=== PATIENT | female | born 1990 | race Caucasian/White ===

== ENCOUNTER 2023-05-26 10:19 | Emergency (ER) | payer OTHER, SELFPAY ==
[2023-05-26 10:27] VITALS: BP 113/84; PULSE 67; RESP 14; TEMP 36.6; O2SAT 98; BMI 29.3
--- NOTE | 2023-05-26 10:34 | PC.NURSE ---
pt scratched R lower leg mosquito bite a few days ago, and worried the scratch is infected. Wound is not open or draining or appears to be infected. pt has been putting neosporin on it.
--- NOTE | 2023-05-26 10:46 | ED.SKABFB1 ---
HPI - Skin/Abscess/Foreign Bdy General Chief complaint: Skin/Abscess/Foreign Body Stated complaint: LOWER EXTREMITY PAIN RIGHT LEG Time Seen by Provider: 05/26/23 10:28 Source: patient Mode of arrival: walk-in Limitations: no limitations History of Present Illness HPI narrative: 32-year-old female presented to have a wound on her right lower leg checked. She states she had a mosquito bite and she scratched it and caused a large abrasion. It's been healing and she's been putting triple and back ointment on it but she wanted to make sure it is not infected. No drainage or fever. She's had this for a few days. Related Data Home Medications Medication Instructions Recorded Confirmed naltrexone microspheres 380 mg mg IM 05/26/23 intramuscular suspension,extended release (Vivitrol) Allergies Allergy/AdvReac Type Severity Reaction Status Date / Time No Known Drug Allergies Allergy Verified 05/26/23 10:26 Review of Systems ROS Narrative A ten point review of systems is negative except as noted above. PFSH PFSH Social History Smoking status: Current every day smoker Exam Narrative Exam Narrative: Nurses note and vital signs reviewed and patient is not hypoxic. General: The patient appears well and in no apparent distress. Patient is resting comfortably on cart. Skin: Warm, dry, no pallor noted. There is no rash noted. there is a vertically oriented abrasion on her right lower leg anteriorly. There is scab but no drainage or abscess or surrounding erythema. There is no open area. Head: Normocephalic, atraumatic Eye: Normal conjunctiva, no drainage Ears, Nose, Mouth, and Throat: oral mucosa is moist. Nares patent. Cardiovascular: Regular Rate and Rhythm Respiratory: Patient is in no distress, no accessory muscle use Back: non-tender GI: nontender Musculoskeletal: The patient has no evidence of calf tenderness, no pitting edema, symmetrical pulses noted bilaterally Neurological: A&O, normal speech Psychiatric: Cooperative Constitutional Vital Signs, click to edit/add: Last Vital Signs Temp 97.9 F 05/26/23 10:27 Pulse 67 05/26/23 10:27 Resp 14 05/26/23 10:27 BP 113/84 05/26/23 10:27 Pulse Ox 98 05/26/23 10:27 O2 Del Method Room Air 05/26/23 10:27 Course Vital Signs Vital signs: Vital Signs Temperature 97.9 F 05/26/23 10:27 Pulse Rate 67 05/26/23 10:27 Respiratory Rate 14 05/26/23 10:27 Blood Pressure 113/84 05/26/23 10:27 Pulse Oximetry 98 05/26/23 10:27 Oxygen Delivery Method Room Air 05/26/23 10:27 Temperature 97.9 F 05/26/23 10:27 Pulse Rate 67 05/26/23 10:27 Respiratory Rate 14 05/26/23 10:27 Blood Pressure 113/84 05/26/23 10:27 Pulse Oximetry 98 05/26/23 10:27 Oxygen Delivery Method Room Air 05/26/23 10:27 MDM - Skin/Abscess/Foreign Bdy MDM Narrative Medical decision making narrative: the patient was reassured that there is no infection. Treatment diagnosis and follow-up were discussed with the patient. Discharge Plan Discharge Chief Complaint: Skin/Abscess/Foreign Body Clinical Impression: Abrasion of skin Patient Disposition: Home, Self-Care Time of Disposition Decision: 10:38 Condition: Good Mode of Transportation: Private Vehicle Prescriptions / Home Meds: No Action Vivitrol 380 mg suspension,extended rel recon IM Stand Alone Forms: Portal Instructions
== END 2023-05-26 10:50 | disposition home or self-care (01) ==
PROVIDERS: Emergency Provider Emergency Medicine
DX: S80.811A Abrasion, right lower leg, initial encounter (principal); F17.210 Nicotine dependence, cigarettes, uncomplicated; X58.XXXA Exposure to other specified factors, initial encounter
CPT/HCPCS: 99281

== ENCOUNTER 2023-06-10 14:50 | Emergency (ER) | payer OTHER, SELFPAY ==
[2023-06-10 14:55] VITALS: BP 137/88; PULSE 98; RESP 20; TEMP 36.8; O2SAT 99; BMI 29.8
--- NOTE | 2023-06-10 15:04 | ECG_ITS ---
The [facility] [place] Test Date: 2023-06-10 Pat Name: LEILA HASSAN Department: Room: - Gender: Female [employer]: : 1990 Requested By: 1030 Order Number: [id number] Reading MD: PRABHJOT RAHMAN Measurements Intervals [place] Rate: 74 P: 30 OR: 150 QRS: 34 QRSD: 76 T: 34 QT: 362 QTc: 389 Interpretive Statements 1100 Sinus rhythm 8102 Low QRS voltage in chest leads 9120 atypical ECG No previous ECG available for comparison Electronically Signed On 06-11-2023 7:18:35 EDT by PRABHJOT RAHMAN
--- NOTE | 2023-06-10 15:04 | CT_ITS ---
The [address] [address] Patient Name: LEILA HASSAN MRN: [id number] date: 1990 Sex: F Assigned Patient Location: ER Current Patient Location: ER Accession/Order Number: [id number] Exam Date: 06/10/2023 15:43 Report Date: 06/10/2023 16:02 At the request of: GABRIELA CAMARGO Procedure: CT head/brain wo con EXAM: CT head/brain wo con HISTORY: weak dizziness. COMPARISON: Prior CT scan of the brain August 11, 2022. TECHNIQUE: Noncontrast images of the brain. FINDINGS: Mild hyperostosis frontalis interna present. The brain is normal in attenuation without hemorrhage, mass effect or midline shift. No acute findings are seen. CT/CT head/brain wo con IMPRESSION: No acute findings in the brain at this time. Electronically authenticated by: NINOSKA KEENAN Date: 06/10/2023 16:02
--- NOTE | 2023-06-10 15:04 | ED.GENADUL1 ---
HPI - General Adult General Chief complaint: Headache Stated complaint: HIGH BP/HEADACHES Time Seen by Provider: 06/10/23 14:57 Source: patient Mode of arrival: walk-in Limitations: no limitations History of Present Illness HPI narrative: 32-year-old female presents for headache and high blood pressure. She brings in a written list of symptoms including dizziness and some short-term memory problems. She's had no trauma. She was seen at another hospital yesterday and had a workup that was negative. She called her neurologist and the patient states she was told that this is not her intracranial hypertension and that she should go to the emergency department and get checked. The patient wants to have a CAT scan of her head. No fever or localized weakness. Symptoms seem to have been present for the last week. Related Data Home Medications Medication Instructions Recorded Confirmed naltrexone microspheres 380 mg 380 mg IM .COMPLEX 05/26/23 06/10/23 intramuscular suspension,extended release (Vivitrol) cholecalciferol (vitamin D3) 125 5,000 unit PO .COMPLEX 06/10/23 06/10/23 mcg (5,000 unit) capsule duloxetine 60 mg capsule,delayed 60 mg PO DAILY 06/10/23 06/10/23 release hydroxyzine pamoate 25 mg capsule 25 mg PO PRN 06/10/23 06/10/23 ziprasidone HCl 20 mg capsule 20 mg PO DAILY 06/10/23 06/10/23 Allergies Allergy/AdvReac Type Severity Reaction Status Date / Time aripiprazole [From Abilify] Allergy Unknown Verified 06/10/23 15:05 Review of Systems ROS Narrative A ten point review of systems is negative except as noted above. PFSH PFSH Social History Smoking status: Current every day smoker Exam Narrative Exam Narrative: Nurses note and vital signs reviewed and patient is not hypoxic. General: The patient appears well and in no apparent distress. Patient is resting comfortably on cart. Skin: Warm, dry, no pallor noted. There is no rash noted. Head: Normocephalic, atraumatic Eye: Normal conjunctiva, no drainage, EOMI. PERRL Ears, Nose, Mouth, and Throat: oral mucosa is moist. Nares patent. Mouth without vesicles. Cardiovascular: Regular Rate and Rhythm Respiratory: Patient is in no distress, no accessory muscle use, lungs are clear to auscultation, no wheezing, rales or rhonchi Back: non-tender GI: soft and nontender Musculoskeletal: The patient has no evidence of calf tenderness, no pitting edema, symmetrical pulses noted bilaterally Neurological: A&O x4, normal speech; upper and lower extremity strength five out of five and symmetric Psychiatric: Cooperative Constitutional Vital Signs, click to edit/add: Last Vital Signs Temp 98.3 F 06/10/23 14:55 Pulse 98 H 06/10/23 14:55 Resp 06/10/23 14:55 BP 137/88 06/10/23 14:55 Pulse Ox 99 06/10/23 14:55 O2 Del Method Room Air 06/10/23 14:55 Course Vital Signs Vital signs: Vital Signs Temperature 98.3 F 06/10/23 14:55 Pulse Rate 98 H 06/10/23 14:55 Respiratory Rate 06/10/23 14:55 Blood Pressure 137/88 06/10/23 14:55 Pulse Oximetry 99 06/10/23 14:55 Oxygen Delivery Method Room Air 06/10/23 14:55 Temperature 98.3 F 06/10/23 14:55 Pulse Rate 98 H 06/10/23 14:55 Respiratory Rate 06/10/23 14:55 Blood Pressure 137/88 06/10/23 14:55 Pulse Oximetry 99 06/10/23 14:55 Oxygen Delivery Method Room Air 06/10/23 14:55 Medical Decision Making MDM Narrative Medical decision making narrative: blood work and CT of the brain are negative. Cause of her symptoms is uncertain but she'll follow-up with her PCP. Treatment diagnosis and follow-up were discussed with the patient. Differential Diagnosis Differential Diagnosis: sinusitis, intracranial hemorrhage, stress Lab Data Lab results reviewed: Yes I reviewed the patient's lab results Labs: Lab Results 06/10/23 Range/Units 15:35 WBC 8.3 (4.0-11.0) 10^3/uL RBC 3.48 L (4.20-5.40) 10^6/uL Hgb 10.7 L (12.0-16.0) g/dL Hct 32.6 L (36.0-48.0) % MCV 93.7 (81.0-99.0) fL MCH 30.7 (26.7-34.0) pg MCHC 32.8 (29.9-35.2) g/dL RDW 16.9 H (11.0-15.0) % Plt Count 288 (150-450) 10^3/uL MPV 11.6 (9.5-13.5) fL Neut % (Auto) 64.7 (43.0-75.0) % Lymph % (Auto) 27.5 (20.5-60.0) % [place] % (Auto) 5.4 (1.7-12.0) % Eos % (Auto) 1.3 (0.9-7.0) % Baso % (Auto) 0.7 (0.2-2.0) % Neut # (Auto) 5.4 (1.4-6.5) 10^3/uL Lymph # (Auto) 2.3 (1.2-3.8) 10^3/uL [place] # (Auto) 0.5 (0.3-0.8) 10^3/uL Eos # (Auto) 0.1 (0.0-0.7) 10^3/uL Baso # (Auto) 0.1 (0.0-0.1) 10^3/uL Abs Immat Gran (auto) 0.03 (0.00-0.03) 10^3/uL Imm/Tot Granulo (auto) 0.4 (0.0-0.5) % Sodium 140 (136-145) mmol/L Potassium 3.4 L (3.5-5.1) mmol/L Chloride 106 (98-107) mmol/L Carbon Dioxide 26.3 (21.0-32.0) mmol/L Anion Gap 11.1 BUN 11.0 (7.0-18.0) mg/dL Creatinine 0.67 (0.55-1.02) mg/dL Est GFR ( Amer) >60 (>=60) Est GFR (Non-Af Amer) >60 (>=60) BUN/Creatinine Ratio 16.4 Glucose 94 (74-106) mg/dL Calcium 9.1 (8.5-10.1) mg/dL Imaging Data CT scan - head: Radiologist's impression: Procedure: CT head/brain wo con EXAM: CT head/brain wo con HISTORY: weak dizziness. COMPARISON: Prior CT scan of the brain August 11, 2022. TECHNIQUE: Noncontrast images of the brain. FINDINGS: Mild hyperostosis frontalis interna present. The brain is normal in attenuation without hemorrhage, mass effect or midline shift. No acute findings are seen. IMPRESSION: No acute findings in the brain at this time. Electronically authenticated by: NINOSKA KEENAN Date: 06/10/2023 16: ECG Data Attestation: I personally reviewed and interpreted this ECG as follows: (EKG on my interpretation shows normal sinus rhythm with a rate of seventy-four.) Discharge Plan Discharge Chief Complaint: Headache Clinical Impression: Headache Patient Disposition: Home, Self-Care Time of Disposition Decision: 16:17 Condition: Good Mode of Transportation: Private Vehicle Prescriptions / Home Meds: No Action Vivitrol 380 mg suspension,extended rel recon 380 mg IM .COMPLEX Rx Instructions: 380 mg intramuscularly monthly; cholecalciferol (vitamin D3) 125 mcg (5,000 unit) capsule 5,000 unit PO .COMPLEX Rx Instructions: 5,000 units orally weekly; duloxetine 60 mg capsule,delayed release(DR/EC) 60 mg PO DAILY hydroxyzine pamoate 25 mg capsule 25 mg PO PRN ziprasidone HCl 20 mg capsule 20 mg PO DAILY Instructions: General Headache (ED) Stand Alone Forms: Portal Instructions Referrals: KAYLEE AMES [Primary Care Provider] - 1 week
[2023-06-10 15:27] VITALS: PULSE 74
[2023-06-10 15:43] LABS: Basophils Absolute Auto 0.1 10^3/uL (0.0-0.1); Basophils Percent Auto 0.7 % (0.2-2.0); Eosinophils Absolute Auto 0.1 10^3/uL (0.0-0.7); Eosinophils Percent Auto 1.3 % (0.9-7.0); Hematocrit 32.6 % (36.0-48.0); Hemoglobin 10.7 g/dL (12.0-16.0); Immature Granulocytes Abs Auto 0.03 10^3/uL (0.00-0.03); Immature Granulocytes Pct Auto 0.4 % (0.0-0.5); Lymphocytes Absolute Auto 2.3 10^3/uL (1.2-3.8); Lymphocytes Percent Auto 27.5 % (20.5-60.0); Mean Corpuscular HGB Conc 32.8 g/dL (29.9-35.2); Mean Corpuscular Hemoglobin 30.7 pg (26.7-34.0); Mean Corpuscular Volume 93.7 fL (81.0-99.0); Mean Platelet Volume 11.6 fL (9.5-13.5); Monocytes Absolute Auto 0.5 10^3/uL (0.3-0.8); Monocytes Percent Auto 5.4 % (1.7-12.0); Neutrophils Absolute Auto 5.4 10^3/uL (1.4-6.5); Neutrophils Percent Auto 64.7 % (43.0-75.0); Platelet Count 288 10^3/uL (150-450); Red Blood Count 3.48 10^6/uL (4.20-5.40); Red Cell Distribution Width 16.9 % (11.0-15.0); White Blood Count 8.3 10^3/uL (4.0-11.0)
[2023-06-10 15:51] LABS: Anion Gap 11.1; BUN Creatinine Ratio 16.4; Calcium 9.1 mg/dL (8.5-10.1); Carbon Dioxide 26.3 mmol/L (21.0-32.0); Chloride 106 mmol/L (98-107); Estimated GFR (African America >60 (>=60); Estimated GFR (Non-African Ame >60 (>=60); Glucose 94 mg/dL (74-106); Potassium 3.4 mmol/L (3.5-5.1); Sodium 140 mmol/L (136-145)
== END 2023-06-10 16:29 | disposition home or self-care (01) ==
PROVIDERS: Emergency Provider Emergency Medicine
DX: R51.9 Headache, unspecified (principal); F17.210 Nicotine dependence, cigarettes, uncomplicated; Z79.899 Other long term (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
CPT/HCPCS: 36415; 70450; 80048; 85025; 93005; 99285

== ENCOUNTER 2023-06-12 10:19 | Emergency (ER) | payer OTHER, SELFPAY ==
[2023-06-12] VITALS (8 sets, daily range): BP systolic 119–139; BP diastolic 82–97; PULSE 80–114; RESP 12–20; TEMP 36.7; O2SAT 96–100; BMI 29.3
--- NOTE | 2023-06-12 10:32 | PC.NURSE ---
pt stating her BP has been elevated since thursday, was running about 150s/100s. Tried calling PCP, but never got through. Today felt some chest pressure with heaviness of extremities. Pt appears to be very anxious at this time. EKG done immediately, NSR.
--- NOTE | 2023-06-12 11:01 | ECG_ITS ---
The [facility] Test Date: 2023-06-12 Pat Name: LEILA HASSAN Department: Room: - Gender: Female [employer]: : 1990 Requested By: Order Number: [id number] Reading MD: PRABHJOT RAHMAN Measurements Intervals [place] Rate: 89 P: 49 [place]: 158 QRS: 48 QRSD: 80 T: 46 QT: 328 QTc: 375 Interpretive Statements 1100 Sinus rhythm 9110 normal ECG Compared to ECG 06/10/2023 15:13:49 No significant changes Electronically Signed On 06-14-2023 18:39:05 EDT by PRABHJOT RAHMAN
--- NOTE | 2023-06-12 11:01 | XR_ITS ---
The [address] [address] Patient Name: LEILA HASSAN MRN: [id number] date: 1990 Sex: F Assigned Patient Location: ER Current Patient Location: ER Accession/Order Number: [id number] Exam Date: 06/12/2023 11:20 Report Date: 06/12/2023 11:34 At the request of: NEW DREW Procedure: XR chest 1V EXAM: Chest x-ray HISTORY: . chest pain . COMPARISON: None. TECHNIQUE: Single view of the chest FINDINGS: Heart and vascularity are unremarkable. Lungs are free of focal infiltrates EKG leads overlie the chest. XR/XR chest 1V IMPRESSION: No acute heart or lung disease identified. Electronically authenticated by: SAMIRA BOYER Date: 06/12/2023 11:34
--- NOTE | 2023-06-12 11:02 | ED_ITS ---
HPI - Chest Pain General Chief Complaint: Chest Pain Stated Complaint: PRESSURE TO THE CHEST Time Seen by Provider: 06/12/23 10:33 Source: patient Mode of arrival: walk-in Limitations: no limitations History of Present Illness HPI narrative: patient developed pain across the anterior chest a few hours ago - she describes it as a heaviness pressing against my chest . Nothing taken at home for that. She told me that she started getting high BP readings 3 days ago and the latest home check was 158/113. She previously has IC HTN and sees a local PCP and Dr Dorman for this - she had a headache a few days ago but none now. No fever or chills. No cough or cold symptoms. No GI or symptoms. Related Data Home Medications Medication Instructions Recorded Confirmed naltrexone microspheres 380 mg 380 mg IM .COMPLEX 05/26/23 06/10/23 intramuscular suspension,extended release (Vivitrol) cholecalciferol (vitamin D3) 125 5,000 unit PO .COMPLEX 06/10/23 06/10/23 mcg (5,000 unit) capsule duloxetine 60 mg capsule,delayed 60 mg PO DAILY 06/10/23 06/10/23 release hydroxyzine pamoate 25 mg capsule 25 mg PO PRN 06/10/23 06/10/23 ziprasidone HCl 20 mg capsule 20 mg PO DAILY 06/10/23 06/10/23 Previous Rx's Medication Instructions Recorded methocarbamol 750 mg tablet 750 mg PO Q6H PRN pain #30 tabs 06/12/23 Allergies Allergy/AdvReac Type Severity Reaction Status Date / Time aripiprazole [From Abili] Allergy Unknown Verified 06/10/23 15:05 PFSH PFSH Social History Smoking status: Current every day smoker Exam Narrative Exam Narrative: Nurses notes and vital signs reviewed and patient is not hypoxic. afebrile General: Well-appearing and in no apparent distress. Skin: Warm, dry, no pallor noted. Eye: Pupils are equal, round and EOMI. No scleral icterus. Cardiovascular: Regular Rate and Rhythm without murmur, gallop or rub. Respiratory: No accessory muscle use or respiratory distress. Lungs are clear to auscultation, no wheezing, rales or rhonchi Chest Wall: no tenderness Musculoskeletal: normal ROM, no calf or popliteal tenderness, no lower extremity edema/swelling GI: Abdomen is soft, non-distended. Normal bowel sounds. No tenderness to palpation. No rebound, guarding, or rigidity noted. Neurological: A&O x4. No cranial nerve dysfunction observed. No truncal ataxia. Moves all extremities. Sensation intact. Psychiatric: Cooperative and interactive. Normal mood and affect. Constitutional Vital Signs, click to edit/add: Last Vital Signs Temp 98.1 F 06/12/23 10:25 Pulse 114 H 06/12/23 11:22 Resp 12 06/12/23 11:22 BP 119/82 06/12/23 11:00 Pulse Ox 98 06/12/23 11:22 O2 Del Method Room Air 06/12/23 10:25 Course Vital Signs Vital signs: Vital Signs Temperature 98.1 F 06/12/23 10:25 Pulse Rate 100 H 06/12/23 10:25 Respiratory Rate 20 06/12/23 10:25 Blood Pressure 134/91 06/12/23 10:25 Pulse Oximetry 100 06/12/23 10:25 Oxygen Delivery Method Room Air 06/12/23 10:25 Temperature 98.1 F 06/12/23 10:25 Pulse Rate 114 H 06/12/23 11:22 Respiratory Rate 12 06/12/23 11:22 Blood Pressure 119/82 06/12/23 11:00 Pulse Oximetry 98 06/12/23 11:22 Oxygen Delivery Method Room Air 06/12/23 10:25 MDM - Chest Pain MDM Narrative Medical decision making narrative: 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 Blood drawn and sent for evaluation. EKG is normal. Risk factors for acute coronary syndrome are minimal. All other testing unremarkable and no worrisome pathology identified at this time. Patient given reassurance and discharged home. She told me that her PCP called in a prescription for HCTZ while she has been in our ED. I cautioned her to contact her PCP if she starts that and experiences dizziness, syncope or near-syncope or other worrisome symptoms since her BP has been normal during her ED stay. Lab Data Attestation: I reviewed the patient's lab results. Labs: Lab Results 06/12/23 Range/Units 11:15 WBC 8.5 (4.0-11.0) 10^3/uL RBC 3.95 L (4.20-5.40) 10^6/uL Hgb 12.1 (12.0-16.0) g/dL Hct 37.2 (36.0-48.0) % MCV 94.2 (81.0-99.0) fL MCH 30.6 (26.7-34.0) pg MCHC 32.5 (29.9-35.2) g/dL RDW 16.7 H (11.0-15.0) % Plt Count 305 (150-450) 10^3/uL MPV 11.7 (9.5-13.5) fL Neut % (Auto) 76.1 H (43.0-75.0) % Lymph % (Auto) 16.2 L (20.5-60.0) % [place] % (Auto) 5.5 (1.7-12.0) % Eos % (Auto) 1.4 (0.9-7.0) % Baso % (Auto) 0.6 (0.2-2.0) % Neut # (Auto) 6.5 (1.4-6.5) 10^3/uL Lymph # (Auto) 1.4 (1.2-3.8) 10^3/uL [place] # (Auto) 0.5 (0.3-0.8) 10^3/uL Eos # (Auto) 0.1 (0.0-0.7) 10^3/uL Baso # (Auto) 0.1 (0.0-0.1) 10^3/uL Abs Immat Gran (auto) 0.02 (0.00-0.03) 10^3/uL Imm/Tot Granulo (auto) 0.2 (0.0-0.5) % D-Dimer 0.26 (<=0.59) mg/L FEU Sodium 140 (136-145) mmol/L Potassium 4.0 (3.5-5.1) mmol/L Chloride 101 (98-107) mmol/L Carbon Dioxide 28.3 (21.0-32.0) mmol/L Anion Gap 14.7 BUN 16.0 (7.0-18.0) mg/dL Creatinine 0.68 (0.55-1.02) mg/dL Est GFR ( Amer) >60 (>=60) Est GFR (Non-Af Amer) >60 (>=60) BUN/Creatinine Ratio 23.5 Glucose 85 (74-106) mg/dL Calcium 9.6 (8.5-10.1) mg/dL Troponin I High Sens <4.0 L (4.0-51.3) pg/mL Imaging Data Chest x-ray: My impression: NAD Radiologist's impression: Patient Name: LEILA HASSAN MRN: [id number] date: 1990 Sex: F Assigned Patient Location: ER Current Patient Location: ER Accession/Order Number: [id number] Exam Date: 06/12/2023 11:20 Report Date: 06/12/2023 11:34 At the request of: NEW DREW Procedure: XR chest 1V EXAM: Chest x-ray HISTORY: . chest pain . COMPARISON: None. TECHNIQUE: Single view of the chest FINDINGS: Heart and vascularity are unremarkable. Lungs are free of focal infiltrates EKG leads overlie the chest. IMPRESSION: No acute heart or lung disease identified. Electronically authenticated by: SAMIRA BOYER Date: 06/12/2023 11:34 ECG Data Interpretation: EKG interpretation: Emergency Department physician interpretation. Normal sinus rhythm at 89bpm. Normal axis, normal intervals and no ST segment elevation or depression. normal EKG Heart Score History: Slightly/Non-Suspicious ECG: Normal Age: <45 years Risk Factors: 1 or 2 Risk Factors (smoker) Troponin: <Normal Limit Total Heart Score Recommendations & Risks:: 1 Discharge Plan Discharge Chief Complaint: Chest Pain Clinical Impression: Atypical chest pain Patient Disposition: Home, Self-Care Time of Disposition Decision: 12:06 Prescriptions / Home Meds: New methocarbamol 750 mg tablet 750 mg PO Q6H PRN (Reason: pain) Qty: 30 0RF No Action Vivitrol 380 mg suspension,extended rel recon 380 mg IM .COMPLEX Rx Instructions: 380 mg intramuscularly monthly; cholecalciferol (vitamin D3) 125 mcg (5,000 unit) capsule 5,000 unit PO .COMPLEX Rx Instructions: 5,000 units orally weekly; duloxetine 60 mg capsule,delayed release(DR/EC) 60 mg PO DAILY hydroxyzine pamoate 25 mg capsule 25 mg PO PRN ziprasidone HCl 20 mg capsule 20 mg PO DAILY Instructions: Noncardiac Chest Pain (ED) Stand Alone Forms: Portal Instructions Referrals: KAYLEE AMES [Primary Care Provider] - 1 week
[2023-06-12] MEDS: KETOROLAC TROMETHAMINE 10 MG TABLET PO (11:10)
[2023-06-12 11:36] LABS: Basophils Absolute Auto 0.1 10^3/uL (0.0-0.1); Basophils Percent Auto 0.6 % (0.2-2.0); Eosinophils Absolute Auto 0.1 10^3/uL (0.0-0.7); Eosinophils Percent Auto 1.4 % (0.9-7.0); Hematocrit 37.2 % (36.0-48.0); Hemoglobin 12.1 g/dL (12.0-16.0); Immature Granulocytes Abs Auto 0.02 10^3/uL (0.00-0.03); Immature Granulocytes Pct Auto 0.2 % (0.0-0.5); Lymphocytes Absolute Auto 1.4 10^3/uL (1.2-3.8); Lymphocytes Percent Auto 16.2 % (20.5-60.0); Mean Corpuscular HGB Conc 32.5 g/dL (29.9-35.2); Mean Corpuscular Hemoglobin 30.6 pg (26.7-34.0); Mean Corpuscular Volume 94.2 fL (81.0-99.0); Mean Platelet Volume 11.7 fL (9.5-13.5); Monocytes Absolute Auto 0.5 10^3/uL (0.3-0.8); Monocytes Percent Auto 5.5 % (1.7-12.0); Neutrophils Absolute Auto 6.5 10^3/uL (1.4-6.5); Neutrophils Percent Auto 76.1 % (43.0-75.0); Platelet Count 305 10^3/uL (150-450); Red Blood Count 3.95 10^6/uL (4.20-5.40); Red Cell Distribution Width 16.7 % (11.0-15.0); White Blood Count 8.5 10^3/uL (4.0-11.0)
[2023-06-12 11:43] LABS: D Dimer 0.26 mg/L FEU (<=0.59)
[2023-06-12 11:53] LABS: Anion Gap 14.7; BUN Creatinine Ratio 23.5; Calcium 9.6 mg/dL (8.5-10.1); Carbon Dioxide 28.3 mmol/L (21.0-32.0); Chloride 101 mmol/L (98-107); Estimated GFR (African America >60 (>=60); Estimated GFR (Non-African Ame >60 (>=60); Glucose 85 mg/dL (74-106); Sodium 140 mmol/L (136-145); Troponin I High Sensitivity <4.0 pg/mL (4.0-51.3)
== END 2023-06-12 12:15 | disposition home or self-care (01) ==
PROVIDERS: Emergency Provider Emergency Medicine
DX: R07.89 Other chest pain (principal); Z79.899 Other long term (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; F17.210 Nicotine dependence, cigarettes, uncomplicated
CPT/HCPCS: 36415; 71045; 80048; 84484; 85025; 85378; 93005; 99285

== ENCOUNTER 2023-07-10 10:20 | Emergency (ER) | payer OTHER, SELFPAY ==
[2023-07-10 10:37] VITALS: BP 120/89; PULSE 80; RESP 16; TEMP 37.1; O2SAT 97; BMI 29.0
--- NOTE | 2023-07-10 10:45 | XR_ITS ---
The [address] [address] Patient Name: LEILA HASSAN MRN: [id number] date: 1990 Sex: F Assigned Patient Location: ER Current Patient Location: ER Accession/Order Number: [id number] Exam Date: 07/10/2023 10:58 Report Date: 07/10/2023 11:17 At the request of: LADY SANCHEZ Procedure: XR chest 1V EXAMINATION: XR chest 1V HISTORY: sob , cough COMPARISON: XR chest 06/12/2023 FINDINGS: LUNGS: No significant pulmonary parenchymal abnormalities. VASCULATURE: No increased pulmonary vasculature. PLEURA: No pneumothorax, effusion, or pleural thickening. CARDIAC: No cardiomegaly or cardiac silhouette abnormality. MEDIASTINUM: No visible mass or adenopathy. BONES: No fracture or visible bone lesion. OTHER: Negative. XR/XR chest 1V IMPRESSION: 1. No acute cardiopulmonary process. Electronically authenticated by: CAROLYNE RALPH Date: 07/10/2023 11:17
[2023-07-10 10:50] VITALS: RESP 16; O2SAT 97
--- NOTE | 2023-07-10 10:56 | ED_ITS ---
HPI - General Adult General Chief complaint: Shortness of Breath/Dyspnea Stated complaint: SHORTNESS OF BREATH Time Seen by Provider: 07/10/23 10:55 Source: patient Mode of arrival: walk-in Limitations: no limitations History of Present Illness HPI narrative: Patient is a 32-year-old female She reported history of cough, congestion, shortness of breath, anterior bilateral chest wall pain. Patient is currently ta dwaine Medrol Dosepak secondary to pseudotumor cerebri, she is on a Medrol Dosepak currently. Patient's PCP is Dr. Hameed. Patient went to an urgent care on Thursday, [facility]. The urgent care prescribed her a steroid even though she was [place] on a Medrol Dosepak. The prescription of the medication. Patient says that she has been taking DayQuil and NyQuil. Patient does have inhaler. Patient smokes a pack of cigarettes a day, should toobacco abuse. Patient has no bowel pain, nausea vomiting. No bowel or bladder changes. No recent traveling or cervical injury. Other acute complaints. . All systems are negative except as noted/marked. All systems reviewed and otherwise negative. . Nurses note and vital signs reviewed and patient is not hypoxic. General: The patient appears well and in no apparent distress. Patient is resting comfortably on cart. Patient is not toxic, lethargic, or listless Skin: Warm, dry, no pallor noted. There is no rash noted. No petechiae, purpura. Head: Normocephalic, atraumatic Eye: Normal conjunctiva, no drainage, EOMI. PERRL Ears, Nose, Mouth, and Throat: oral mucosa is moist. Nares patent. Mouth without vesicles. Cardiovascular: Regular Rate and Rhythm, no murmur, gallop, rub, Mild reproducible tenderness palpation to the anterior, lateral, posterior chest wall. Respiratory: Patient is in no distress, no accessory muscle use, lungs are aniceto r to auscultation, no wheezing, rales or rhonchi. Mild decreased breath sounds bilateral, no rhonchi, no wheezing, equal breath sounds bilateral. Back: non-tender, no CVA tenderness bilaterally to percussion. No CT LS midline pain GI: soft, no tenderness to palpation, no masses appreciated. No rebound, guarding, or rigidity noted. No flank pain bilateral, No distention Musculoskeletal: Patient has full range of motion of all of the extremities, no motor, sensory, or focal neurological deficits Neurological: A&O x3, normal speech Psychiatric: Cooperative Related Data Home Medications Medication Instructions Recorded Confirmed cholecalciferol (vitamin D3) 125 5,000 unit PO .COMPLEX 06/10/23 07/10/23 mcg (5,000 unit) capsule duloxetine 60 mg capsule,delayed 60 mg PO DAILY 06/10/23 07/10/23 release hydroxyzine pamoate 25 mg capsule 25 mg PO PRN 06/10/23 07/10/23 acetazolamide 250 mg tablet 250 mg PO Q12H 07/10/23 07/10/23 albuterol sulfate 90 mcg/actuation 2 puff inhalation Q6H PRN 07/10/23 07/10/23 aerosol inhaler shortness of breath or wheezing brexpiprazole 4 mg tablet (Rexulti) 4 mg PO DAILY 07/10/23 07/10/23 methylprednisolone 4 mg tablets in mg 07/10/23 a dose pack Previous Rx's Medication Instructions Recorded benzonatate 100 mg capsule 200 mg PO TID PRN cough #20 caps 07/10/23 wkpqjswyqbvgfau-gbvbihotnnmuukx-DB 10 ml PO Q6H PRN cold symptoms 07/10/23 2 mg-30 mg-10 mg/5 mL oral syrup #200 mL (Bromfed DM) Allergies Allergy/AdvReac Type Severity Reaction Status Date / Time aripiprazole [From [facility]] Allergy Unknown Verified 07/10/23 10:33 PFSH PFSH Social History Smoking status: Current every day smoker Exam Constitutional Vital Signs, click to edit/add: Last Vital Signs Temp 98.8 F 07/10/23 10:37 Pulse 80 07/10/23 10:37 Resp 16 07/10/23 10:50 BP 120/89 07/10/23 10:37 Pulse Ox 99 07/10/23 11:08 O2 Del Method Room Air 07/10/23 11:08 Course Vital Signs Vital signs: Vital Signs Temperature 98.8 F 07/10/23 10:37 Pulse Rate 80 07/10/23 10:37 Respiratory Rate 16 07/10/23 10:37 Blood Pressure 120/89 07/10/23 10:37 Pulse Oximetry 97 07/10/23 10:37 Oxygen Delivery Method Room Air 07/10/23 10:37 Temperature 98.8 F 07/10/23 10:37 Pulse Rate 80 07/10/23 10:37 Respiratory Rate 16 07/10/23 10:50 Blood Pressure 120/89 07/10/23 10:37 Pulse Oximetry 99 07/10/23 11:08 Oxygen Delivery Method Room Air 07/10/23 11:08 Medical Decision Making MDM Narrative Medical decision making narrative: EKG interpretation. Normal sinus rhythm at 68 beats a minute. Normal axis deviation. No acute ST elevation, no acute ectopy. QTC of 381. EKG, chest x-rays Show no acute findings. Patient has no acute indication for an antibiotic. Patient wanted 7 days off work so that she could recuperate. Patient will be given work note for today and tomorrow if needed. Patient is to continue all her yluh-akk-fgrqqch symptomatically treatment of DayQuil, NyQuil, inhaler every 4 hours, Tylenol Motrin as needed for pain. Patient has a follow-up with PCP. Patient understands this, no questions at discharge Discharge Plan Discharge Chief Complaint: Shortness of Breath/Dyspnea Clinical Impression: Dyspnea, Atypical chest pain, Tobacco abuse, Acute bronchitis Patient Disposition: Home, Self-Care Condition: Fair Prescriptions / Home Meds: New nomyirbbirthhwf-trgsuufiw-GW [Bromfed DM] 2-30-10 mg/5 mL syrup 10 ml PO Q6H PRN (Reason: cold symptoms) Qty: 200 0RF benzonatate 100 mg capsule 200 mg PO TID PRN (Reason: cough) Qty: 20 0RF No Action cholecalciferol (vitamin D3) 125 mcg (5,000 unit) capsule 5,000 unit PO .COMPLEX Rx Instructions: 5,000 units orally weekly; duloxetine 60 mg capsule,delayed release(DR/EC) 60 mg PO DAILY hydroxyzine pamoate 25 mg capsule 25 mg PO PRN acetazolamide 250 mg tablet 250 mg PO Q12H albuterol sulfate 90 mcg/actuation HFA aerosol inhaler 2 puff INHALATION Q6H PRN (Reason: shortness of breath or wheezing) Rexulti 4 mg tablet 4 mg PO DAILY methylprednisolone 4 mg tablets,dose pack Instructions: How to Stop Smoking (ED), Acute Bronchitis (ED), Dyspnea (ED), Chest Wall Pain (ED) Additional Instructions: Continue using DayQuil, NyQuil on Flonase. Use Tylenol Motrin as needed forChest wall pain from coughing. Continue using inhaler every 4 hours. Finish her antibiotics. Call today to make an appointment with Dr. Hameed and then follow-up with Dr. Hameed next week to see if any additional outpatient testing or additional medication as needed. Stand Alone Forms: Work/School Release, Portal Instructions Referrals: KAYLEE AMES [Primary Care Provider] - 1 week
--- NOTE | 2023-07-10 10:57 | ECG_ITS ---
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
[2023-07-10 11:08] VITALS: O2SAT 99
[2023-07-10] MEDS: IPRATROPIUM/ALBUTEROL SULFATE 3 ML AMPUL.NEB IH (11:08)
== END 2023-07-10 13:11 | disposition home or self-care (01) ==
PROVIDERS: Emergency Provider Emergency Medicine
DX: J20.9 Acute bronchitis, unspecified (principal); R06.00 Dyspnea, unspecified; R07.89 Other chest pain; F17.210 Nicotine dependence, cigarettes, uncomplicated; G93.2 Benign intracranial hypertension; Z79.899 Other long term (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
CPT/HCPCS: 71045; 93005; 94640; 99284

== ENCOUNTER 2023-08-13 14:40 | Outpatient (OUT) | payer OTHER, SELFPAY ==
[2023-08-14 09:09] LABS: CA 19-9 5 U/mL (0-35)
== END 2023-08-13 14:41 | disposition home or self-care (01) ==
DX: K86.2 Cyst of pancreas (principal)
CPT/HCPCS: 36415; 86301

== ENCOUNTER 2023-08-14 14:08 | Emergency (ER) | payer OTHER, SELFPAY ==
[2023-08-14 14:12] VITALS: BP 123/84; PULSE 78; RESP 18; TEMP 36.5; O2SAT 100; BMI 23.1
--- NOTE | 2023-08-14 14:30 | ED.NAVMDI1 ---
HPI - Nausea/Vomiting/Diarrhea General Chief complaint: Nausea/Vomiting/Diarrhea Stated complaint: ABDOMINAL PAIN Time Seen by Provider: 08/14/23 14:19 Source: patient Mode of arrival: walk-in History of Present Illness HPI Narrative: Patient presents with nausea and dry heaves . She said that she can keep down food and fluid but the nausea is intense. She had gastric bypass surgery at [facility] and sees a post-bypass specialist in [place]. She had been experiencing RUQ pain and had an out-patient RUQ US at [place] that showed a pancreatic mass the patient told me. She is scheduled for EGD in 3 days at [facility] in [place]. She has not talked to her specialist about the result of the out-patient RUQ US. She said that she does not want any testing - she just wants something for nausea. Related Data Home Medications Medication Instructions Recorded Confirmed cholecalciferol (vitamin D3) 125 5,000 unit PO .COMPLEX 06/10/23 07/10/23 mcg (5,000 unit) capsule duloxetine 60 mg capsule,delayed 60 mg PO DAILY 06/10/23 07/10/23 release hydroxyzine pamoate 25 mg capsule 25 mg PO PRN 06/10/23 07/10/23 acetazolamide 250 mg tablet 250 mg PO Q12H 07/10/23 07/10/23 albuterol sulfate 90 mcg/actuation 2 puff inhalation Q6H PRN 07/10/23 07/10/23 aerosol inhaler shortness of breath or wheezing brexpiprazole 4 mg tablet (Rexulti) 4 mg PO DAILY 07/10/23 07/10/23 methylprednisolone 4 mg tablets in mg 07/10/23 a dose pack Previous Rx's Medication Instructions Recorded benzonatate 100 mg capsule 200 mg PO TID PRN cough #20 caps 07/10/23 ecfrcipxetgopey-ikiofbbmhdnebgt-TB 10 ml PO Q6H PRN cold symptoms 07/10/23 2 mg-30 mg-10 mg/5 mL oral syrup #200 mL (Bromfed DM) ondansetron 4 mg disintegrating 4 mg PO Q6H PRN nausea/vomiting 08/14/23 tablet #20 tabs Allergies Allergy/AdvReac Type Severity Reaction Status Date / Time aripiprazole [From [facility]] Allergy Unknown Verified 07/10/23 10:33 [facility] Social History Smoking status: Current every day smoker Exam Narrative Exam Narrative: Nurses notes and vital signs reviewed and patient is not hypoxic. afebrile General: Well-appearing and in no apparent distress. Skin: Warm, dry, no pallor noted. Head: Normocephalic, atraumatic. Eye: Pupils are equal, round and EOMI. No scleral icterus. Cardiovascular: Regular Rate and Rhythm without murmur, gallop or rub. Respiratory: No accessory muscle use or respiratory distress. Lungs are clear to auscultation, no wheezing, rales or rhonchi Back: No CVA tenderness GI: Abdomen is soft, non-distended. Normal bowel sounds. No focal tenderness to palpation. No rebound, guarding, or rigidity noted. Neurological: A&O x4. No cranial nerve dysfunction observed. No truncal ataxia. Moves all extremities. Sensation intact. Psychiatric: Cooperative and interactive. Normal mood and affect. Constitutional Vital Signs, click to edit/add: Last Vital Signs Temp 97.7 F 08/14/23 14:12 Pulse 78 08/14/23 14:12 Resp 18 08/14/23 14:12 BP 123/84 08/14/23 14:12 Pulse Ox 100 08/14/23 14:12 O2 Del Method Room Air 08/14/23 14:12 Course Vital Signs Vital signs: Vital Signs Temperature 97.7 F 08/14/23 14:12 Pulse Rate 78 08/14/23 14:12 Respiratory Rate 18 08/14/23 14:12 Blood Pressure 123/84 08/14/23 14:12 Pulse Oximetry 100 08/14/23 14:12 Oxygen Delivery Method Room Air 08/14/23 14:12 Temperature 97.7 F 08/14/23 14:12 Pulse Rate 78 08/14/23 14:12 Respiratory Rate 18 08/14/23 14:12 Blood Pressure 123/84 08/14/23 14:12 Pulse Oximetry 100 08/14/23 14:12 Oxygen Delivery Method Room Air 08/14/23 14:12 MDM - Nausea/Vomiting/Diarrhea MDM Narrative Medical decision making narrative: Patient does not want any testing - asked for something for nausea. She was given ODT Zofran in the ED and discharged home with a prescription for the same. Discussed clear liquids and soft bland diet over the weekend. Stressed the importance of calling now to discuss the US result with her bypass specialist and schedule appropriate follow up for any potential surgical intervention if needed. Discharge Plan Discharge Chief Complaint: Nausea/Vomiting/Diarrhea Clinical Impression: Nausea Patient Disposition: Home, Self-Care Time of Disposition Decision: 14:36 Prescriptions / Home Meds: New ondansetron 4 mg tablet,disintegrating 4 mg PO Q6H PRN (Reason: nausea/vomiting) Qty: 20 0RF No Action cholecalciferol (vitamin D3) 125 mcg (5,000 unit) capsule 5,000 unit PO .COMPLEX Rx Instructions: 5,000 units orally weekly; duloxetine 60 mg capsule,delayed release(DR/EC) 60 mg PO DAILY hydroxyzine pamoate 25 mg capsule 25 mg PO PRN acetazolamide 250 mg tablet 250 mg PO Q12H albuterol sulfate 90 mcg/actuation HFA aerosol inhaler 2 puff INHALATION Q6H PRN (Reason: shortness of breath or wheezing) Rexulti 4 mg tablet 4 mg PO DAILY methylprednisolone 4 mg tablets,dose pack purwjvcdombatkc-nkajezksz-LV [Bromfed DM] 2-30-10 mg/5 mL syrup 10 ml PO Q6H PRN (Reason: cold symptoms) Qty: 200 0RF benzonatate 100 mg capsule 200 mg PO TID PRN (Reason: cough) Qty: 20 0RF Instructions: Acute Nausea and Vomiting (ED) Stand Alone Forms: Portal Instructions Referrals: KAYLEE AMES [Primary Care Provider] - 1 week
[2023-08-14] MEDS: ONDANSETRON 4 MG RAPDIS TABLET SL (14:48)
== END 2023-08-14 14:52 | disposition home or self-care (01) ==
PROVIDERS: Emergency Provider Emergency Medicine
DX: R11.0 Nausea (principal); Z98.84 Bariatric surgery status; Z79.899 Other long term (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; F17.210 Nicotine dependence, cigarettes, uncomplicated
CPT/HCPCS: 99284

== ENCOUNTER 2023-10-07 15:29 | Emergency (ER) | payer MEDICARE, MEDICAID, SELFPAY ==
[2023-10-07 15:39] VITALS: BP 122/82; PULSE 112; RESP 18; TEMP 37; O2SAT 99; BMI 32.1
--- NOTE | 2023-10-07 15:56 | ECG_ITS ---
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
--- OUTSIDE RECORDS SUMMARY | 2023-10-07 16:03 | XMS_ITS | CCD ---
Author Name Unknown Address [address] [facility] [address] [place] [address] Organization [facility] Care Team Providers Care Mosaic Floor Layer Name Role Phone Jennie Ames Primary Care Provider LINDY COTE Attending Unavailable PROVIDER, UNKNOWN Admitting Unavailable PATIENT, SELF Referring Unavailable Jennie Ames Primary Care Provider Jennie Ames DO Primary Care Provider JENNIE AMES Primary Care Unavailable Jennie Ames DO Primary Care Provider Unavailable Primary Care Provider UnavailAimee Renee Primary Care Physician Unavailable Primary Care Provider UnavailDO Jennie Pichardo Primary Care Provider MD Sangeetha Peña Admit Provider Lindy Hdz Other Provider Unavailable DO Krystal Romo Other Provider MD Carolyne Schilling Other Provider [phone] DO Jamie Larsen Other Provider [place] ANP-CHRIS Kevin Other Provider DO Kenrick Lee Other Provider CEDRIC Zaragoza Other Provider ASTON Smith Other Provider MD Lizzeth Malave Attending Provider DO Jamie Larsen Referring Provider [place] [facility] Dorita Attending Provider [phone] Nakia Mcqueen Primary Care Physician [phone] DR CAROLYNE RALPH Consulting Unavailable MISC, DR VELASCO Primary Care Unavailable VIKI ., DR WOLFF Attending Unavailable HAY ., DR WOLFF Admitting Unavailable HAY ., DR WOLFF Consulting Unavailable GABRIELA CAMARGO Attending Unavailable GABRIELA CAMARGO D Admitting Unavailable GABRIELA CAMARGO Consulting Unavailable MISC, DR VELASCO Primary Care Unavailable VERO, DR WEI Garcia Attending Unavailabl e REINECK, DR WEI Garcia Admitting Unavailabl e REINECK, DR WEI Garcia Consulting Unavailabl e MISC, DR VELASCO Primary Care Unavailable MICHELLE ., RAMSES MARTIN Consulting Unavailbehzad e YOLI MCKEON Consulting Unavailable PAY ., DR NARAYANAN Consulting Unavailable PAY ., DR NARAYANAN Attending Unavailable PAY ., DR NARAYANAN Admitting Unavailable MISC, DR VELASCO Primary Care Unavailable BON ., STEFANIE Consulting Unavailable BON ., STEFANIE Attending Unavailable BON ., STEFANIE Admitting Unavailable MISC, DR VELASCO Primary Care Unavailable GABRIELA CAMARGO Consulting Unavailable GABRIELA CAMARGO Attending Unavailable RAMAN GABRIELA D Admitting Unavailable RIVKAC, DR VELASCO Primary Care Unavailable YOLI ALFORD Consulting Unavailable ALICJA, DR WILEY Gastelum Consulting Unavailable BON ., STEFANIE Attending Unavailable BON ., STEFANIE Admitting Unavailable MISC, DR VELASCO Primary Care Unavailable HARMONY HARRELL Consulting Unavailable BON ., STEFANIE Consulting Unavailable BON ., STEFANIE Consulting Unavailable BON ., STEFANIE Attending Unavailable BON ., STEFANIE Admitting Unavailable MISC, DR VELASCO Primary Care Unavailable MICHELLE .RAMSES Consulting Unavailabl e PAY ., DR NARAYANAN Attending Unavailable PAY ., DR NARAYANAN Admitting Unavailable MISC, DR VELASCO Primary Care Unavailable VIKI ., DR WOLFF Attending Unavailable HAY ., DR WOLFF Admitting Unavailable VIKI ., DR WOLFF Consulting Unavailable MISC, DR VELASCO Primary Care Unavailable YOLI FRANKS Consulting Unavailable MISC, DR VELASCO Primary Care Unavailable BON ., STEFANIE Attending Unavailable BON ., STEFANIE Admitting Unavailable MICHELLE ., RAMSES MARTIN Consulting Unavailabl e LUCIANA ALLEN Consulting Unavailable Unavailable Primary Care Provider Unavailabl Nakia Lester Primary Care Physician [phone] Jennie Ames Primary Care Physician DO Jennie Ames Primary Care Provider [phone] DO Jose Maria Nair Emergency Provider [phone] TeganAnia chicas Unavailable Alexis Shukla Attending Unavailable Charisse, Nakia Brock Attending Unavailab le Nakia Mcqueen Attending Unavailab Aimee Olsen Attending Unavailable Rahul [place] Attending Unavailable Bakari Chester Attending Unavailable Bakari Chester Attending Unavailable Jose Correia Attending Unavailable Alexis Shukla Attending Unavailable ThiagoGal Admitting Unavailable Thiago, Gal Ngo Attending Unavailable ThiagoGal Referring Unavailable Thiago, Gal Ngo Attending Unavailable Thiago, Gal Ngo Referring Unavailable Thiago, Gal Ngo Admitting Unavailable FreedomRita Admitting Unavailable Freedom, Rita Bellamy Attending Unavailable FreedomRita Referring Unavailable LEONOR CORDERO Admitting Unavailable GIL, LEONOR Bach Attending Unavailable ThiagoGal collins Admitting Unavailable ThiagoGal Attending Unavailable Bakari Chester Attending Unavailable Asaad, Imad Unavailable DO Jennie Ames Primary Care Provider DO Jose Maria Nair Emergency Provider [phone] MD Yoli Norris Emergency Provider GANESH CORDERO Referring Unavailable JENNIE AMES Primary Care Unavailable SWAPNA DASILVA Referring Unavailable JENNIE AMES Primary Care Unavailable SWAPNA DASILVA Referring Unavailable JENNIE AMES Primary Care Unavailable EILEEN MANZANO Attending Unavailable EILEEN MANZANO Attending Unavailable LEONELA GROSSMAN Referring Unavailable Yoli Norris Admitting Unavailable Yoli Norris Attending Unavailable Jennie Ames Primary Care Unavailable Lindy Keen Primary Care Unavailable Efrem Victor Admitting Unavailab Efrem Sttaon Attending Unavailab Jennie Soria Primary Care Unavailable Jose Maria Nair Admitting Unavailable Jose Maria Nair Attending Unavailable Jose Maria Nair Attending Unavailable Jennie Ames Primary Care Unavailable Jose Maria Nair Admitting Unavailable LEONELA GROSSMAN Attending Unavailable EILEEN MANZANO Referring Unavailable Jennie Ames DO Primary Care Provider JENNIE AMES Primary Care Unavailable GAMALIEL HARRIS Admitting Unavailable GAMALIEL HARRIS Attending Unavailable SWAPNA DASILVA Referring Unavailable JENNIE AMES Primary Care Unavailable Allergies Allergy Classification Reported Allergen(s) Allergy Type Date of Onset Reaction(s) Facility coconut allergenic extract (7 sources) coconut allergenic extract Drug Allergy 07-18-20 [facility] (20 sources) coconut allergenic extract; 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: [Coconut Oil] Drug Allergy 07-18-20 Itching [place], [place] (15 sources) Coconut Flavor Propensity to adverse reactions to drug 05-09-20 Anaphylaxis [place], [place] (1 source) SOAP; 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: [SOAP] Propensity to adverse reactions to drug (disorder) [facility]19 [facility] source[facility] Pencils; 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: [Unknown] Propensity to adverse reactions (disorder) 11-13-19 [facility] (11 sources) Coconut extract; 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: [coconut] Drug Allergy 07-18-20 [facility] (13 sources) ARIPiprazole lauroxil; 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: [aripiprazole] Drug Allergy [facility] (8 sources) ARIPiprazole; 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: [aripiprazole] Drug Allergy 08-19-20 22 Confusion, [facility] (1 source) ARIPiprazole Drug Allergy 10-30-19 23 [facility] Repository (2 sources) busPIRone Drug Allergy Unknown [facility] Other (1 source) buPROPion Drug Allergy 07-16-20 21 [facility] Medications Current Medications Medication Drug Class(es) Dates Sig (Normalized) Sig (Original) acetaminophen 325 mg oral tablet (20 sources) Start: 04-18-2016 take 325 mg by mouth every four hours as needed for pain Tylenol 325 mg, Oral, q4hr, PRN as needed for pain, Refills(s) 0, Pain Start Date: 04/18/16 Status: Ordered End: 01-07-2021 take 2 tablets by mouth every six hours as needed for pain acetaminophen (TYLENOL) 500 MG tablet Take 1,000 mg by mouth every 6 hours as needed for Pain As needed 0 01/07/2021 Discontinued (LIST CLEANUP) acetaminophen 300 mg / butalbital 50 mg / caffeine 40 mg oral capsule (7 sources) Barbiturate, Central Nervous System Stimulant, Methylxanthine Start: 08-22-2022 take 1 capsule by mouth every four hours for headache APAP/butalbital/caffeine 300 mg-50 mg-40 mg oral capsule 1 cap(s), Oral, q4hr for headache, 12 cap(s), Refill(s) 0, [facility]/pharmacy #[id number], 170, cm, 08/22/22 10:41:00 EST, Height/Length Dosing, 85, kg, 08/22/22 10:41:00 EST, Weight Dosing Start Date: 08/22/22 Status: Ordered Start: 08-08-2022 take 1 capsule by [facility] every four hours for headache APAP/butalbital/caffeine 300 mg-50 mg-40 mg oral capsule 1 cap(s), Oral, q4hr for headache, 12 cap(s), Refill(s) 0, [facility]/pharmacy #[id number], 162, cm, 08/08/22 9:11:00 EST, Height/Length Dosing, 83.1, kg, 08/08/22 9:11:00 EST, Weight Dosing Start Date: 08/08/22 Status: Ordered acetaminophen 325 mg / HYDROcodone bitartrate 5 mg oral tablet (1 source) Opioid Agonist End: 09-18-2023 take 1 tablet by mouth every six hours as needed for pain HYDROcodone-acetaminophen (NORCO) 5-325 MG per tablet Take 1 tablet by mouth every 6 hours as needed for Pain. 0 09/18/2023 Discontinued (Stop Taking at Discharge) acetaminophen 325 mg / oxyCODONE hydrochloride 5 mg oral tablet (7 sources) Opioid Agonist Start: 12-05-2022 End: 12-07-2022 acetaminophen-oxycodone 325 mg-5 mg Tab 1 tab(s), Oral, q6hr for pain for 2 day(s), 7 tab(s), Refill(s) 0, [id number], 170, cm, 11/21/22 10:37:00 EST, Height/Length Dosing, 84, kg, 11/21/22 10:37:00 EST, Weight Dosing Start Date: 12/05/22 Stop Date: 12/07/22 Status: Ordered Start: 02-01-2021 End: 02-06-2021 oxyCODONE-acetaminophen (PER COCET) 5-325 MG per tablet Indications: Omental infarction (HCC) , Surgery, elective Take 1 tablet by mouth every 6 hours as needed for Pain for up to 5 days. Intended supply: 7 days. Take lowest dose possible to manage pain 20 tablet 0 02/01/2021 02/06/2021 Start: 01-30-2021 take 1 tablet by juan manuel every four hours as needed for pain 1 tablet, Oral, EVERY 4 HOURS PRN, Pain Severe (7-10), Starting on Thu01/30/21 at 2157 Maximum dose of acetaminophen is 4000 mg from all sources in 24 hours. Start: 01-08-2021 End: 01-15-2021 oxyCODONE-acetaminophen (PER COCET) 5-325 MG per tablet Indications: Post-op pain Take 1 tablet by mouth every 6 hours as needed for Pain for up to 7 days. Intended supply: 7 days. Take lowest dose possible to manage pain 28 tablet 0 01/08/2021 01/15/2021 Active Start: 01-07-2021 oxyCODONE-acet aminophen (PERCOCET) 5-325 MG per tablet 1 tablet Start: 09-28-2020 End: 09-28-2020 oxyCODONE-acetaminophen (PER COCET) 5-325 MG per tablet 1 tablet acetaZOLAMIDE 250 mg oral tablet (15 sources) Carbonic Anhydrase Inhibitor Start: 07-07-2023 End: 09-18-2023 take 250 mg by mouth twice daily Acetazolamide Active 250 MG PO Twice daily August 15, 2023 12:00am Start: 11-20-2022 End: 09-18-2023 take 500 mg by mouth twice daily Acetazolamide Discontinued 500 MG PO Twice daily July 02, 2023 11:00pm August 15, 2023 11:41am Comment on above: Take 1 capsule by mo [facility] twice daily. Start from 500mg daily, increase to twice a day in a week [id number] actuat albuterol 0.09 mg/actuat metered dose inhaler (6 sources) beta2-Adrenergic Agonist Start: 07-08-2023 take 2 puff(s) by inhalation four times daily as needed Albuterol Sulfate HFA 108 (90 Base) MCG/ACT 2 puffs Inhalation 4 times a day prn Jun, Active Start: 07-08-2023 take 2 puff(s) by in halation four times daily as needed Albuterol Sulfate HFA 108 (90 Base) MCG/ACT 2 puffs Inhalation 4 times a day prn Jun, Active Start: 07-08-2023 take 2 puff(s) by in halation four times daily as needed Albuterol Sulfate HFA 108 (90 Base) MCG/ACT 2 puffs Inhalation 4 times a day prn Jun, Active Start: 12-03-2018 take 2 puff(s) by in halation every four hours as needed Albuterol Sulfate HFA 108 (90 Base) MCG/ACT 2 puffs as needed Inhalation every 4 hrs for 7 days Nov, Not-Taking/PRN Start: 12-03-2018 take 2 puff(s) by in halation every four hours as needed Albuterol Sulfate HFA 108 (90 Base) MCG/ACT 2 puffs as needed Inhalation every 4 hrs for 7 days Nov, Not-Taking Start: 12-03-2018 take 2 puff(s) by in halation every four hours as needed Albuterol Sulfate HFA 108 (90 Base) MCG/ACT 2 puffs as needed Inhalation every 4 hrs for 7 days Nov, Not-Taking albuterol 0.833 mg/ml / ipratropium bromide 0.167 mg/ml inhalation solution (1 source) Anticholinergic, beta2-Adrenergic Agonist Start: 01-07-2021 ipratropium-albuterol (DUONEB) nebulizer solution 1 ampule ALPRAZolam 0.5 mg oral tablet (9 sources) Benzodiazepine Start: 11-22-2020 End: 09-18-2023 take 1 tablet by mouth three times daily as needed ALPRAZolam (XANAX) 0.5 MG tablet Take 1 tablet by mouth 3 times daily as needed. 0 11/22/2020 09/18/2023 Discontinued (Stop Taking at Discharge) Start: 11-22-2020 take 1 tablet by juan manuel th once daily as needed for anxiety ALPRAZolam (XANAX) 0.5 MG tablet TAKE 1 TABLET BY MOUTH DAILY NEEDED FOR ANXIETY 0 11/22/2020 Active amoxicillin 875 mg / clavulanate 125 mg oral tablet (2 sources) Penicillin-class Antibacterial Start: 02-01-2021 End: 02-11-2021 take 1 tablet by mouth twice daily amoxicillin-clavulanate (AUGMENTIN) 875-125 MG per tablet Take 1 tablet by mouth 2 times daily for 10 days 20 tablet 0 02/01/2021 02/11/2021 Active Amphetamine / Dextroamphetamine (1 source) Central Nervous System Stimulant Start: 07-01-2021 Adderall 5 mg oral tablet 2.5 mg, 0.5 tab(s), Oral, Refill(s) 0 Start Date: 07/01/21 Status: Ordered calcium carbonate 1250 mg oral tablet (9 sources) Start: 08-11-2022 take 500 mg by mouth twice daily Calcium Carbonate Active 500 MG PO Twice daily August 11, 2022 12:00am take 1 tablet by mouth once otto y calcium carbonate (OSCAL) 500 MG TABS tablet Take 1 tablet by mouth daily Dasilva melts 0 Suspended calcium chloride 0.0014 meq/ ml / potassium chloride 0.004 meq/ml / sodium chloride 0.103 meq/ml / sodium lactate 0.028 meq/ml injectable solution (4 sources) Start: 09-18-2023 lactated ringe rs IV soln infusion Start: 01-07-2021 End: 01-07-2021 lactated ringers infusion Start: 09-28-2020 lactated ringe rs infusion calcium citrate 950 mg oral tablet (20 sources) Start: 07-01-2021 take 1 mg by mouth twice daily calcium (as calcium citrate) 200 mg oral tablet mg tab(s), Oral, BID, Refills(s) 0 Start Date: 07/01/21 Status: Ordered cyclobenzaprine hydrochloride 5 mg oral tablet (3 sources) Muscle Relaxant Start: 11-10-2022 End: 09-18-2023 take 1 tablet by mouth once daily at bedtime cyclobenzaprine (FLEXERIL) 5 MG tablet TAKE 1 TABLET BY MOUTH ONCE EVERYDAY AT BEDTIME 0 11/10/2022 09/18/2023 Discontinued (Stop Taking at Discharge) Start: 08-22-2022 End: 09-05-2022 take 1 tablet by mouth three times daily cyclobenzaprine 5 mg Tab 5 mg = 1 tab(s), Oral, TID, X 14 day(s), # 42 tab(s), Refills(s) 0, Pharmacy: [facility]/pharmacy #[id number], 170, cm, 08/22/22 10:41:00 EST, Height/Length Dosing, 85, kg, 08/22/22 10:41:00 EST, Weight Dosing Start Date: 08/22/22 Stop Date: 09/05/22 Status: Ordered Start: 01-30-2021 take 10 mg by mouth three times daily as needed for muscle spasms 10 mg, Oral, 3 TIMES DAILY PRN, Muscle spasms, Starting on Thu01/30/21 at 2157 dexamethasone 0.1 mg/ml oral solution (1 source) Corticosteroid Start: 02-12-2022 End: 02-19-2022 dexAMETHasone (DECADRON) 0.5 mg/5 mL solution Indications: Irritation of oral cavity , Burning tongue Take 5 mL by mouth three times daily for 7 days. Swish for 5 minutes then spit out. Wait 30 minutes, then use Nystatin solution. 105 mL 0 02/12/2022 02/19/2022 Active Comment on above: Take 5 mL by mouth t hree times daily for 7 days. Swish for 5 minutes then spit out. Wait 30 minutes, then use Nystatin solution. 1 ml diphenhydrAMINE hydrochloride 50 mg/ml cartridge (2 sources) Histamine-1 Receptor Antagonist Start: 09-18-2023 End: 09-19-2023 diphenhydrAMINE (BENADRYL) injection 12.5 mg Start: 09-28-2020 End: 09-28-2020 diphenhydrAMINE (BENADRYL) i njection 12.5 mg DULoxetine 30 mg delayed release oral capsule (20 sources) Serotonin and Norepinephrine Reuptake Inhibitor Start: 02-21-2023 take 30 mg by mouth once daily at bedtime Duloxetine Active 30 MG PO Daily at bedtime August 15, 2023 12:00am Start: 07-20-2020 End: 08-19-2022 Duloxetine Discontinued 30 M G PO Daily at bedtime July 20, 2020 12:00am August 19, 2022 7:39am Take with 60mg tablet for total of 90mg Start: 02-29-2020 DULoxetine (CY MBALTA) 60 MG extended release capsule Take 90 mg by mouth daily Patient states she takes at 5pm 0 02/29/2020 Suspended Start: 02-02-2019 Cymbalta 60 mg , Oral, BID, per dr chaparro, Depression Start Date: 02/02/19 Status: Ordered Start: 02-02-2019 Cymbalta 90 mg , Oral, Daily, 30mg in AM 60mg at night, Depression Start Date: 02/02/19 Status: Ordered Start: 01-08-2019 take 1 capsule by [facility] once daily at bedtime Duloxetine (Cymbalta) 60 mg Capsule,Delayed Release(Dr/Ec) Active 60 MG PO Daily at bedtime January 07, 2019 11:00pm take 1 capsule by [facility] every eight hours Cymbalta 30 MG 1 capsule Orally three times a day Active Cymbalta Active Comment on above: Take 60 mg by mouth once daily. 0.4 ml enoxaparin sodium 100 mg/ml prefilled syringe (1 source) Low Molecular Weight Heparin Start: inject 1 dose by subcutaneous injection twice daily 40 mg, Subcutaneous, EVERY 12 HOURS SCHEDULED (2 times per day), First dose on Thu01/30/21 at 2200 2 ml famotidine 10 mg/ml injection (1 source) Histamine-2 Receptor Antagonist Start: 021 famotidine (PEPCID) injection 20 mg ferrous sulfate 325 mg oral tablet (3 sources) Start: 008 End: 022 ferrous sulfate(IRON 325 MG (65 MG IRON) TAB) gabapentin 300 mg oral capsule (10 sources) Anti-epileptic Agent Start: 023 End: 024 take 1 capsule by mouth twice daily gabapentin (NEURONTIN) 300 MG capsule TAKE 1 CAPSULE BY MOUTH TWICE A DAY 0 10/21/2022 09/18/2023 Discontinued (Stop Taking at Discharge) 1 ml heparin sodium, porcine 5000 unt/ml prefilled syringe (2 sources) Unfractionated Heparin, Anti-coagulant Start: End: heparin (porcine) injection 5,000 Units 1 ml HYDROmorphone hydrochloride 1 mg/ml cartridge (5 sources) Opioid Agonist Start: HYDROmorphone (DILAUDID) injection 0.5 mg Start: 01-07-2021 HYDROmorphone (DILAUDID) injection 1 mg Start: 09-28-2020 HYDROmorphone (DILAUDID) injection 0.25 mg Start: 09-28-2020 HYDROmorphone (DILAUDID) injection 0.5 mg hydrOXYzine hydrochloride 50 mg oral tablet (6 sources) Antihistamine Start: 04-21-2022 hydrOXYzine hy drochloride 50 mg oral tablet Refills(s) 0 Start Date: 04/21/22 Status: Ordered Start: 01-08-2019 End: 07-18-2020 take 25 mg by mouth three times daily Hydroxyzine Pamoate Discontinued 25 MG PO Three times daily January 07, 2019 11:00pm July 18, 2020 2:27pm iv contrast (will be provided with radiology test) (1 source) Start: 11-20-2022 End: 11-21-2022 iv contrast (will be provided with radiology test) MRV Brain Inject, intravenously, once for 1 dose. No IV access, insert saline lock prior to the beginning of sedation, infusion, injection of imaging exam. Discontinue saline lock post exam. If Pt. has a central line or IVAD, may access for administration according to line specific nursing protocol. Once exam is complete flush line and de-access according to line specific nursing protocol in the MR contrast administration guidelines link. 1 Each 0 11/20/2022 11/21/2022 Active Comment on above: MRV Brain Inject, in travenously, once for 1 dose. No IV access, insert saline lock prior to the beginning of sedation, infusion, injection of imaging exam. Discontinue saline lock post exam. If Pt. has a central line or IVAD, may access for administration according to line specific nursing protocol. Once exam is complete flush line and de-access according to line specific nursing protocol in the MR contrast administration guidelines link. labetalol (NORMODYNE;TRANDATE) injection 10 mg (1 source) Start: 09-18-2023 labetalol (NORMODYNE;TRANDATE ) injection 10 mg labetalol (NORMODYNE;TRANDATE) injection syringe 5 mg (1 source) Start: 09-28-2020 labetalol (NORMODYNE;TRANDATE ) injection syringe 5 mg 10 ml lidocaine hydrochloride 10 mg/ml injection (1 source) Antiarrhythmic, Amide Local Anesthetic Start: 09-28-2020 End: 09-28-2020 lidocaine PF 1 % injection 1 mL lisinopril 5 mg oral tablet (15 sources) Angiotensin Converting Enzyme Inhibitor Start: 08-14-2022 End: 07-03-2023 take 1 tablet by mouth once daily lisinopril 5 mg Tab 5 mg = 1 tab(s), Oral, Daily, # 30 tab(s), Refills(s) 5, Pharmacy: [facility]/pharmacy #[id number], 170, cm, 09/24/22 7:09:00 EST, Height/Length Dosing, 86.8, kg, 09/24/22 7:09:00 EST, Weight Dosing Start Date: 10/06/22 Status: Ordered 1 ml meperidine hydrochloride 50 mg/ml injection (1 source) Opioid Agonist Start: 09-28-2020 meperidine (DEMEROL) injection 12.5 mg 2 ml metoclopramide 5 mg/ml prefilled syringe (1 source) Dopamine-2 Receptor Antagonist Start: 09-18-2023 End: 09-19-2023 metoclopramide (REGLAN) injection 10 mg 2 ml midazolam 1 mg/ml injection (1 source) Benzodiazepine Start: 09-18-2023 End: 09-19-2023 midazolam PF (VERSED) injection 2 mg 1 ml morphine sulfate 2 mg/ml cartridge (6 sources) Opioid Agonist Start: 09-18-2023 morphine (PF) injection 1 mg Start: 01-30-2021 End: 01-30-2021 morphine (PF) injection 2 mg Start: 01-07-2021 End: 01-07-2021 morphine (PF) injection 2 mg Start: 09-28-2020 morphine (PF) injection 2 mg Multi-Day Plus Minerals (20 sources) Start: 07-01-2021 Multi-Day Plus Minerals Oral, Daily, Refill(s) 0 Start Date: 07/01/21 Status: Ordered Multivitamin preparation (4 sources) Start: 08-11-2022 take 1 tablet by mouth once daily Multivitamin Active 1 TAB PO Daily August 11, 2022 1:00am Start: 08-11-2022 take 1 tablet by juan manuel th once daily Multivitamin Active 1 TAB PO Daily August 11, 2022 12:00am naltrexone 380 mg injection (6 sources) Opioid Antagonist Start: 08-15-2023 End: 09-18-2023 inject 380 mg by intramuscular injection every month Naltrexone Microspheres (Vivitrol) 380 mg suspension,extended rel recon Active 380 MG IM every month August 15, 2023 12:00am Not planning on taking it this month Start: 09-24-2022 take 1 tablet by juan manuel th once daily naltrexone 50 mg oral tablet 50 mg = 1 tab(s), Oral, Daily, # 30 tab(s), Refills(s) 0 Start Date: 09/24/22 Status: Ordered naproxen 500 mg oral tablet (8 sources) Nonsteroidal Anti-inflammatory Drug Start: 04-20-2022 take 1 tablet by mouth twice daily as needed for pain naproxen 500 mg Tab 500 mg = 1 tab(s), Oral, BID, PRN for pain, # 20 tab(s), Refills(s) 0, Pharmacy: [facility]/pharmacy #[id number], 170, cm, 04/20/22 15:01:00 EDT, Height/Length Dosing, 81.5, kg, 04/20/22 15:01:00 EDT, Weight Dosing Start Date: 04/20/22 Status: Ordered 24 hr nicotine 0.583 mg/hr transdermal system (1 source) Cholinergic Nicotinic Agonist Start: 11-03-2022 End: 01-02-2023 nicotine 14 mg/24 hr Transderm ER Film 1 patch(es), Topical, Daily for 30 day(s), 30 patch(es), Refill(s) 1, [facility]/pharmacy #[id number], 170, cm, 11/03/22 13:04:00 EST, Height/Length Dosing, 83.9, kg, 11/03/22 13:04:00 EST, Weight Dosing Start Date: 11/03/22 Stop Date: 01/02/23 Status: Ordered nitrofurantoin macrocrystals-monoh ydrate 100 mg Cap (2 sources) Start: 01-29-2022 take 1 capsule by mouth twice daily at mealtime nitrofurantoin macrocrystals-mono hydrate 100 mg Cap TAKE 1 CAPSULE BY MOUTH TWICE A DAY FOR 5 DAYS WITH FOOD Start Date: 01/29/22 Status: Ordered nitrofurantoin, macrocrystals 25 mg / nitrofurantoin, monohydrate 75 mg oral capsule (9 sources) Nitrofuran Antibacterial Start: 01-29-2022 take 1 capsule by mouth twice daily at mealtime nitrofurantoin macrocrystals-mono hydrate 100 mg Cap TAKE 1 CAPSULE BY MOUTH TWICE A DAY FOR 5 DAYS WITH FOOD Start Date: 01/29/22 Status: Ordered nystatin [id number] unt/ml oral suspension (1 source) Polyene Antifungal Start: 02-12-2022 End: 02-19-2022 nystatin (MYCOSTATIN) 100,000 unit/mL suspension Indications: Irritation of oral cavity , Burning tongue Take 1 mL by mouth three times daily for 7 days. Swish for 1 minutes and spit. Do not eat or drink for 30 minutes afterwards. 21 mL 0 02/12/2022 02/19/2022 Active Comment on above: Take 1 mL by mouth t hree times daily for 7 days. Swish for 1 minutes and spit. Do not eat or drink for 30 minutes afterwards. 2 ml ondansetron 2 mg/ml injection (19 sources) Serotonin-3 Receptor Antagonist Start: 09-18-2023 End: 09-19-2023 ondansetron (ZOFRAN) injection 4 mg Start: 08-14-2022 take 1 tablet by [place] twice daily Zofran 8 mg Tab 8 mg = 1 tab(s), Oral, BID, # 6 tab(s), Refills(s) 1, Pharmacy: [facility]/pharmacy #[id number], 162, cm, 08/08/22 9:11:00 EST, Height/Length Dosing, 83.1, kg, 08/08/22 9:11:00 EST, Weight Dosing Start Date: 08/14/22 Status: Ordered Start: 01-30-2021 End: 01-30-2021 ondansetron (ZOFRAN) injecti on 4 mg Start: 01-07-2021 ondansetron (Z OFRAN) injection 4 mg Start: 11-26-2020 take 1 tablet by juan manuel th every four hours as needed ondansetron (ZOFRAN-ODT) 4 MG disintegrating tablet DISSOLVE ONE TABLET BY MOUTH EVERY 4 HOURS NEEDED 0 11/26/2020 Active Start: 09-28-2020 End: 09-28-2020 ondansetron (ZOFRAN) injecti on 4 mg Trileptal (9 sources) Anti-epileptic Agent Start: 08-22-2022 Trileptal Refills(s) 0 Start Date: 08/22/22 Status: Ordered Start: 08-12-2022 End: 08-15-2023 take 75 mg by mouth twice daily Oxcarbazepine Discontinued 75 MG PO Twice daily August 12, 2022 12:00am August 15, 2023 11:45am oxyCODONE (1 source) Opioid Agonist Start: 09-18-2023 End: 09-18-2023 oxyCODONE (ROXICODONE) immediate release tablet 5 mg piperacillin-tazobactam (ZOSYN) 3,375 mg in dextrose 5 % 50 mL IVPB (mini-bag) (2 sources) Start: 01-30-2021 piperacillin-t azobactam (ZOSYN) 3,375 mg in dextrose 5 % 50 mL IVPB (mini-bag) Start: 01-30-2021 End: 01-30-2021 piperacillin-tazobactam (ZOS YN) 3,375 mg in dextrose 5 % 50 mL IVPB (mini-bag) vits w-ca,fe,fa(<1m g)( VITAMIN TAB) (3 sources) Start: 06-22-2008 End: 02-13-2022 vits w-ca,fe,fa( Start: 06-22-2008 vits w-ca,fe,fa( promethazine hydrochloride 25 mg oral tablet (13 sources) Phenothiazine Start: 08-15-2023 take 25 mg by mouth every six hours Promethazine Active 25 MG PO Q6H August 15, 2023 12:00am Start: 08-22-2022 Phenergan Refi lls(s) 0 Start Date: 08/22/22 Status: Ordered Start: 08-21-2022 End: 07-03-2023 take 25 mg by mouth every six hours Promethazine Discontinued 25 MG PO Q6H August 21, 2022 12:00am July 03, 2023 9:07am Start: 01-30-2021 inject 12.5 mg by in tramuscular injection every six hours as needed for nausea 12.5 mg, Intravenous, EVERY 6 HOURS PRN, Nausea, Vomiting, Starting on Thu01/30/21 at 2157 Recommended route is IM. For IV administration, dilute to 10ml with normal saline. Must be administered over at least 10 minutes. Start: 01-07-2021 End: 01-28-2021 take 1 tablet by mouth every six hours as needed for nausea promethazine (PHENERGAN) 25 MG tablet Take 1 tablet by mouth every 6 hours as needed for Nausea 80 tablet 0 01/08/2021 01/28/2021 Active Start: 01-07-2021 promethazine ( PHENERGAN) injection 12.5 mg Start: 09-28-2020 promethazine ( PHENERGAN) injection 12.5 mg 72 hr scopolamine 0.0139 mg/hr transdermal system (1 source) Anticholinergic Start: 01-07-2021 scopolamine (TRANSDERM-SCOP) transdermal patch 1 patch 5 ml sodium chloride 9 mg/ml injection (19 sources) Start: 09-18-2023 sodium chlorid e flush 0.9 % injection 5-40 mL Start: 09-18-2023 sodium chlorid e flush 0.9 % injection 5-40 mL Start: 09-18-2023 0.9 % sodium c hloride infusion Start: 09-18-2023 sodium chlorid e flush 0.9 % injection 5-40 mL Start: 02-01-2021 take 1 dose intraven ously twice daily 5-40 mL, Intravenous, EVERY 12 HOURS SCHEDULED (2 times per day), First dose on Thu02/01/21 at 0900 For Line Patency: Peripheral IV = 5 mL; Midline or Central Line = 10 mL/lumen. If following IV push medication, administer flush at same rate as the IV push. Flush volume is determined by type of infusion therapy being given. For non-viscous solutions use: Peripheral IV = 5 mL Midline or Central Line = 10 mL/lumen For viscous solutions (i.e. blood components, parenteral nutrition, contrast media, or after obtaining blood sample) use: Peripheral IV = 10 mL Midline or Central Line = 20 mL/lumen Start: 01-31-2021 take 5-40 mL intrave nously once as needed 5-40 mL, Intravenous, PRN, Line Care, After every IV line use, Starting on Bettye 01/31/21 at 2330 For Line Patency: Peripheral IV = 5 mL; Midline or Central Line = 10 mL/lumen. If following IV push medication, administer flush at same rate as the IV push. Flush volume is determined by type of infusion therapy being given. For non-viscous solutions use: Peripheral IV = 5 mL Midline or Central Line = 10 mL/lumen For viscous solutions (i.e. blood components, parenteral nutrition, contrast media, or after obtaining blood sample) use: Peripheral IV = 10 mL Midline or Central Line = 20 mL/lumen Start: 01-30-2021 take 25 mL intraveno usly every hour as needed 25 mL, Intravenous, at 100 mL/hr, PRN, If patient receiving piggyback infusions without ordered maintenance IV fluids or with frequent/long duration piggyback infusions, Starting on [facility] 01/30/21 at 2157 Administer at the same rate as the piggyback being infused. Start: 01-30-2021 End: 01-30-2021 0.9 % sodium chloride bolus Start: 01-30-2021 0.9 % sodium c hloride infusion Start: 01-26-2021 End: 01-26-2021 0.9 % sodium chloride bolus Start: 01-07-2021 0.9 % sodium c hloride infusion Start: 01-07-2021 sodium chlorid e flush 0.9 % injection 5-40 mL Start: 09-28-2020 sodium chlorid e flush 0.9 % injection 10 mL Start: 09-28-2020 End: 09-28-2020 0.9 % sodium chloride bolus Start: 09-28-2020 sodium chlorid e flush 0.9 % injection 10 mL sucralfate 1000 mg oral tablet (2 sources) Aluminum Complex Start: 07-30-2023 End: 09-18-2023 take 1 g by mouth four times daily Sucralfate Active 1 GM PO Four times daily August 15, 2023 12:00am topiramate 100 mg oral tablet (20 sources) Start: 08-15-2023 Topiramate (Topamax) 100 mg tablet Active 50 MG PO Daily August 15, 2023 11:47am Start: 11-20-2022 End: 06-03-2023 topiramate (TOPAMAX) 100 mg tablet Take 1 tablet by mouth twice daily. Reduce to 50mg for 1-2 weeks, then 25mg for 1-2 weeks, then stop 0 11/20/2022 06/03/2023 Discontinued Start: 08-12-2022 End: 08-15-2023 Topiramate (Topamax) 100 mg Tablet Discontinued 50 MG PO Twice daily 0 August 12, 2022 4:17pm August 15, 2023 11:47am Start: 01-08-2019 End: 08-12-2022 take 1 tablet by mouth once daily at bedtime topiramate (TOPAMAX) 100 MG tablet TAKE 1 TABLET BY MOUTH EVERYDAY AT BEDTIME 0 05/09/2021 Suspended Topamax Not-Taki ng/PRN Topamax Not-Taki ng Comment on above: Take 100 mg by mouth twice daily. Take 1 tablet by juan manuel th twice daily. Reduce to 50mg for 1-2 weeks, then 25mg for 1-2 weeks, then stop varenicline 0.5 mg oral tablet (15 sources) Partial Cholinergic Nicotinic Agonist Start: 04-21-2022 varenicline 0.5 mg oral tablet See Instructions, Step 1: Take 1 tablet daily for 3 days. Then 1 tablet twice daily for 4 days. Start 1 week before planned quit date. Stop smoking 8-35 days after starting medicine if quit date unplanned., # 11 tab(s), Refills(s) 0, Pharmacy:... Start Date: 04/21/22 Status: Ordered Start: 08-27-2021 take 1 tablet by juan manuel th twice daily at mealtime varenicline 1 mg oral tablet 1 mg = 1 tab(s), Oral, BID, Step 2: Start on day 8. Take 1 tablet twice daily. Take with food and full glass of water. May continue additional 12 weeks if not successful., # 154 tab(s), Refills(s) 0, Pharmacy: [facility]/pharmacy #[id number], 170, cm, 04/21/22 9:4... Start Date: 04/21/22 Status: Ordered Zofran ODT 4 mg Tab-Dis (2 sources) Start: 08-08-2022 take 1 tablet by mouth every eight hours as needed for nausea Zofran ODT 4 mg Tab-Dis 4 mg = 1 tab(s), Oral, q8hr, PRN Nausea/Vomiting, # 12 tab(s), Refills(s) 0, [id number], cm, 08/08/22 9:11:00 EST, Height/Length Dosing, 83.1, kg, 08/08/22 9:11:00 EST, Weight Dosing Start Date: 08/08/22 Status: Ordered Completed/Discontinued Medications Medication Drug Class(es) Dates Sig (Normalized) Sig (Original) aspirin 81 mg chewable tablet (1 source) Platelet Aggregation Inhibitor, Nonsteroidal Anti-inflammatory Drug End: 09-25-2020 take 1 tablet by mouth twice daily aspirin 81 MG chewable tablet Take 81 mg by mouth 2 times daily 0 09/25/2020 Discontinued (LIST CLEANUP) barium sulfate 60 % suspension 355 mL (1 source) Start: 11-01-2020 End: 11-01-2020 barium sulfate 60 % suspension 355 mL benzonatate 200 mg oral capsule (3 sources) Non-narcotic Antitussive Start: 12-03-2018 take 1 capsule by mouth every eight hours Benzonatate 200 MG 1 capsule Orally Three times a day for 7 days Nov, Not-Taking/PRN brexpiprazole 4 mg oral tablet (20 sources) Atypical Antipsychotic Start: 06-26-2021 REXULTI 4 MG TABS tablet Start: 01-08-2019 take 1 tablet by juan manuel th once daily at bedtime Brexpiprazole (Rexulti) 3 mg Tablet Active 4 MG PO Daily at bedtime January 07, 2019 11:00pm Rexulti Active Comment on above: Take by mouth once d aily. calcium citrate 0.415 mg/mg / cholecalciferol 0.1 unt/mg oral powder (9 sources) Vitamin D calcium citrate- vitamin D3 500 mg-12.5 mcg /5 gram powd Take by mouth. 0 Active Comment on above: Take by mouth. ceFAZolin (ANCEF) 2000 mg in dextrose 5 % 50 mL IVPB (1 source) Start: 01-07-2021 End: 01-08-2021 ceFAZolin (ANCEF) 2000 mg in dextrose 5 % 50 mL IVPB cholecalciferol 0.125 mg oral tablet (8 sources) Vitamin D End: 01-07-2021 Cholecalciferol (VITAMIN D3) 125 MCG (5000 UT) TABS Take by mouth daily 0 01/07/2021 Discontinued (LIST CLEANUP) Cholecalciferol (VITAMIN D3) 125 MCG (5000 UT) TABS Take by mouth 0 Active doxycycline hyclate 100 mg oral capsule (3 sources) Tetracycline-class Drug Start: 12-03-2018 take 1 capsule by mouth every twelve hours Doxycycline Hyclate 100 MG 1 capsule Orally every 12 hrs for 7 days Nov, Not-Taking/PRN ergocalciferol 1.25 mg oral capsule (4 sources) Provitamin D2 Compound Start: 07-19-2020 End: 08-19-2022 take 81084 [IU] by mouth every week Ergocalciferol (Vitamin D2) Discontinued 27068 UNIT PO every week July 19, 2020 12:00am August 19, 2022 7:39am 2 ml fentaNYL 0.05 mg/ml injection (3 sources) Opioid Agonist Start: 01-30-2021 End: 01-30-2021 fentaNYL (SUBLIMAZE) injection 50 mcg Start: 01-07-2021 End: 01-07-2021 fentaNYL (SUBLIMAZE) injecti on 25 mcg Ibuprofen (3 sources) Nonsteroidal Anti-inflammatory Drug Ibuprofen Not-Taking/PRN Ibuprofen Not-Ta dwaine iohexol (OMNIPAQUE 240) injection 30 mL (1 source) Start: 01-08-2021 End: 01-08-2021 iohexol (OMNIPAQUE 240) injection 30 mL iopamidol (ISOVUE-370) 76 % injection 18 mL (2 sources) Start: 02-04-2021 End: 02-04-2021 iopamidol (ISOVUE-370) 76 % injection 18 mL Start: 01-30-2021 End: 01-30-2021 iopamidol (ISOVUE-370) 76 % injection 18 mL iopamidol (ISOVUE-370) 76 % injection 75 mL (2 sources) Start: 02-04-2021 End: 02-04-2021 iopamidol (ISOVUE-370) 76 % injection 75 mL Start: 01-30-2021 End: 01-30-2021 iopamidol (ISOVUE-370) 76 % injection 75 mL 1 ml ketorolac tromethamine 30 mg/ml cartridge (1 source) Nonsteroidal Anti-inflammatory Drug, Cyclooxygenase Inhibitor Start: 01-08-2021 End: 01-08-2021 ketorolac (TORADOL) injection 30 mg LORazepam 1 mg oral tablet (9 sources) Benzodiazepine Start: 01-31-2020 End: 08-19-2022 take 1 mg by mouth twice daily Lorazepam Discontinued 1 MG PO Twice daily July 18, 2020 12:00am August 19, 2022 7:39am Magic Mouthwash (10 sources) Start: 02-06-2022 End: 02-20-2022 Magic Mouthwash Magic Mouthwash, 5 mL, Oral, TID, 240 mL, 0, Swish and swallow. 30 mL Nystatin + 210 mL Diphenhydramine + #5 tabs 20 mg hydrocortisone + Doxycycline 1,000 mg (tabs/cap)., [facility]/pharmacy #[id number], Compound, 170, cm, 02/06/22 9:17:00 EDT, Height/Length Dos... Start Date: 02/06/22 Stop Date: 02/20/22 Status: Ordered methylPREDNISolone 4 mg oral tablet (3 sources) Corticosteroid Start: 12-03-2018 methylPREDNISolone 4 MG as directed Orally take as directed for 6 days Nov, Not-Taking/PRN 100 ml metroNIDAZOLE 5 mg/ml injection (1 source) Nitroimidazole Antimicrobial Start: 01-07-2021 End: 01-08-2021 metronidazole (FLAGYL) 500 mg in NaCl 100 mL IVPB premix Multiple Vitamins-Minerals (MULTI-DAY PLUS MINERALS PO) (1 source) Start: 07-01-2021 Multiple Vitamins-Minerals (MULTI-DAY PLUS MINERALS PO) Take by mouth 0 07/01/2021 Suspended Multiple Vitamins-Minerals (THERAPEUTIC MULTIVITAMIN-MINERALS) tablet (5 sources) take 1 tablet by mouth once daily Multiple Vitamins-Minerals (THERAPEUTIC MULTIVITAMIN-MINERALS ) tablet Take 1 tablet by mouth daily Dasilva melts with iron 0 Suspended take 1 tablet by mouth once otto y Multiple Vitamins-Minerals (THERAPEUTIC MULTIVITAMIN-MINERALS) tablet Take 1 tablet by mouth daily Dasilva melts with iron 0 Active pcysdnjrupbz-gom-bhln-FA-vit K (BARIATRIC MULTIVITAMINS) 45 mg iron- 800 mcg-120 mcg cap (9 sources) multivitamin-min -iron-FA-vit K (BARIATRIC MULTIVITAMINS) 45 mg iron- 800 mcg-120 mcg cap Take by mouth. 0 Active Comment on above: Take by mouth. pantoprazole 40 mg delayed release oral tablet (20 sources) Proton Pump Inhibitor Sta rt: 3 take 1 tablet by mouth once daily pantoprazole (PROTONIX) 40 MG tablet Indications: Gastro-esophageal reflux disease without esophagitis , Morbid (severe) obesity due to excess calories (HCC) TAKE 1 TABLET BY MOUTH EVERY DAY 90 tablet 1 11/10/2022 Suspended Start: 07-01-2021 Pantoprazole [address] Tab Refills(s) 0 Start Date: 07/01/21 Status: Ordered Start: 06-27-2020 End: 07-07-2021 take 40 mg by mouth once daily Pantoprazole Active 40 MG PO Daily July 18, 2020 12:00am Comment on above: Take 40 mg by mouth once daily. 100 ml potassium chloride 0.1 meq/ml injection (1 source) Start: 1 End: 1 potassium chloride 10 mEq/100 mL IVPB (Peripheral Line) predniSONE 20 mg oral tablet (3 sources) Start: 3 take 1 tablet by mouth every twelve hours predniSONE 20 MG 1 tablet Orally bid for 5 day(s) Jun, Not-Taking/PRN QUEtiapine 100 mg oral tablet (16 sources) Atypical Antipsychotic Start: 0 End: 2 take 100 mg by mouth once daily at bedtime Quetiapine Discontinued 100 MG PO Daily at bedtime July 19, 2020 12:00am August 19, 2022 7:39am Start: 01-08-2019 End: 07-19-2020 take 3 tablets by mouth once daily at bedtime Quetiapine (Seroquel) 50 mg Tablet Discontinued 150 MG PO Daily at bedtime January 07, 2019 11:00pm July 19, 2020 12:34am SEROquel Not-Dariel ing/PRN SEROquel Not-Dariel ing End: 12-24-2020 QUEtiapine (SEROQUEL) 100 MG tablet Take 50 mg by mouth daily 0 12/24/2020 Discontinued (LIST CLEANUP) SUMAtriptan (3 sources) Serotonin-1b and Serotonin-1d Receptor Agonist Imitrex Not-Taking/P RN Imitrex Not-Taki ng terbinafine 250 mg oral tablet (4 sources) Allylamine Antifungal Start: 07-19-2020 End: 07-20-2020 take 250 mg by mouth once daily Terbinafine Hcl Discontinued 250 MG PO Daily July 19, 2020 12:00am July 20, 2020 10:10am traZODone hydrochloride 100 mg oral tablet (19 sources) Serotonin Reuptake Inhibitor Start: 08-22-2022 trazodone Refills(s) 0 Start Date: 08/22/22 Status: Ordered Start: 08-11-2022 End: 07-03-2023 traZODone (DESYREL) 100 MG t ablet as needed 0 10/29/2022 Suspended Start: 01-31-2022 End: 02-07-2022 take 1 tablet by mouth once daily at bedtime traZODONE 50 mg Tab 50 mg = 1 tab(s), Oral, Once a day (at bedtime), X 7 day(s), # 7 tab(s), Refills(s) 0, Pharmacy: [facility]/pharmacy #[id number], 170, cm, 01/31/22 16:58:00 EDT, Height/Length Dosing, 90, kg, 01/31/22 16:58:00 EDT, Weight Dosing Start Date: 01/31/22 Stop Date: 02/07/22 Status: Ordered Problems Active Problems Problem Classification Problem Date Documented Da te Episodic/Chronic Abdominal pain (10 sources) Generalized abdominal pain; 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: [Generalized abdominal pain] Onset: 2 Episodic Acquired foot deformities (5 sources) Acquired bilateral pes planus; 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: [Flat feet] Onset: 0 05-23-2020 Adjustment disorders (19 sources) Adjustment disorder with depressed mood; 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: [Adjustment disorder with depressed mood] Onset: 2 Chronic Alcohol-related disorders (20 sources) Alcohol abuse; 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: [Alcohol abuse, uncomplicated] Onset: 2 Chronic Anxiety disorders (20 sources) Mixed anxiety and depressive disorder; 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: [Anxiety disorder, unspecified] Onset: 0 05-16-2020 Chronic Blindness and vision defects (7 sources) Blurring of visual image; 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: [Other visual disturbances] Onset: 2 08-11-2022 Episodic Cardiac dysrhythmias (6 sources) Palpitations; 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: [Palpitations] 08-12-2022 Episodic Chronic obstructive pulmonary disease and bronchiectasis (1 source) Bronchitis, not specified as acute or chronic Episodic Complications of surgical procedures or medical care (12 sources) Reaction to lumbar puncture; 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: [Other reaction to spinal and lumbar puncture] Onset: 2 Episodic Conditions associated with dizziness or vertigo (1 source) Dizziness and giddiness; 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: [DIZZINESS AND GIDDINESS] Onset: 3 Episodic Diseases of white blood cells (8 sources) Leukocytosis; 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: [Elevated white blood cell count, unspecified] Onset: 2 Chronic Esophageal disorders (20 sources) Gastroesophageal reflux disease without esophagitis; 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: [Gastro-esophageal reflux disease with esophagitis] Onset: 0 Resolved: 3 05-23-2020 Chronic Essential hypertension (10 sources) Essential hypertension; 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: [Essential (primary) hypertension] Onset: 2 Chronic Genitourinary symptoms and ill-defined conditions (1 source) Other abnormal findings in urine; 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: [Other abnormal findings in urine] Onset: 3 Episodic Headache; including migraine (2 sources) Tension-type headache; 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: [Tension-type headache, unspecified, not intractable] 08-21-2022 Chronic Headache; including migraine (7 sources) Headache; 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: [Headache, unspecified] Onset: 2 Episodic Headache; including migraine (5 sources) Headache; including migraine; 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: [HEADACHE UNSPECIFIED] Onset: 2 Lymphadenitis (13 sources) Localized enlarged lymph nodes; 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: [Localized enlarged lymph nodes] Onset: 2 Episodic Mood disorders (20 sources) Bipolar disorder; 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: [Bipolar disorder, unspecified] Onset: 0 05-16-2020 Chronic Mood disorders (1 source) Mood disorders; 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: [Depression, unspecified] Onset: 0 Nausea and vomiting (8 sources) Vomiting, unspecified; 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: [Nausea] Onset: 2 Episodic Nonmalignant breast conditions (18 sources) Hypertrophy of breast; 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: [Hypertrophy of breast] Onset: 2 Episodic Nonspecific chest pain (7 sources) Chest pain, unspecified; 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: [Other chest pain] Onset: 2 Episodic Nutritional deficiencies (20 sources) Vitamin D deficiency; 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: [Vitamin D deficiency, unspecified] Onset: 0 06-27-2020 Chronic Osteoarthritis (13 sources) Arthritis; 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: [Unspecified osteoarthritis, unspecified site] Onset: 0 05-16-2020 Chronic Other aftercare (1 source) Other jail (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; 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: [OTH [employer] HELPER CURRENT DRUG THERAPY] Onset: 3 Episodic Other bone disease and musculoskeletal deformities (3 sources) Segmental and somatic dysfunction; 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: [Segmental and somatic dysfunction of head region] Onset: 2 Episodic Other bone disease and musculoskeletal deformities (7 sources) Cervical somatic dysfunction 08-22-2022 Episodic Other bone disease and musculoskeletal deformities (7 sources) Somatic dysfunction of head region 08-22-2022 Episodic Other bone disease and musculoskeletal deformities (7 sources) Somatic dysfunction of thoracic region 08-22-2022 Episodic Other connective tissue disease (16 sources) Plantar fasciitis 07-01-2021 Episodic Other connective tissue disease (14 sources) Disorder of oral soft tissues 02-06-2022 Episodic Other connective tissue disease (1 source) Spasm; 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: [Other muscle spasm] Onset: 2 Episodic Other connective tissue disease (4 sources) Muscle spasm of cervical muscle of neck 08-22-2022 Episodic Other connective tissue disease (5 sources) Pain in both feet; 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: [Bilateral foot pain] Onset: 0 05-23-2020 Other gastrointestinal disorders (1 source) Other intestinal malabsorption; 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: [Other intestinal malabsorption] Onset: 3 Chronic Other gastrointestinal disorders (1 source) Intestinal malabsorption; 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: [Intestinal malabsorption, unspecified] Onset: 3 11-19-2022 Chronic Other gastrointestinal disorders (20 sources) Mass of pancreas 07-01-2021 Episodic Other nervous system disorders (6 sources) Benign intracranial hypertension; 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: [Benign intracranial hypertension] Onset: 3 Chronic Other nervous system disorders (2 sources) Raised intracranial pressure 11-21-2022 Chronic Other nervous system disorders (2 sources) Benign intracranial hypertension; 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: [Idiopathic intracranial hypertension] Onset: 3 Chronic Other nervous system disorders (1 source) Postoperative pain ; 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: [Other acute postprocedural pain] Episodic Other nervous system disorders (2 sources) Dysphasia; 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: [Dysphasia] Onset: 3 Episodic Other nutritional; endocrine; and metabolic disorders (7 sources) Morbid obesity; 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: [Morbid (severe) obesity due to excess calories] Onset: 0 05-16-2020 Chronic Other nutritional; endocrine; and metabolic disorders (4 sources) Obesity; 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: [Obesity, unspecified] Onset: 2 07-01-2021 Chronic Other nutritional; endocrine; and metabolic disorders (2 sources) Obese class I; 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: [Body mass index (BMI) 30.0-30.9, adult] Onset: 2 Chronic Other nutritional; endocrine; and metabolic disorders (4 sources) Body mass index 30+ - obesity; 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: [Obesity, unspecified] Onset: 1 09-24-2022 Chronic Other nutritional; endocrine; and metabolic disorders (2 sources) Obesity, unspecified; 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: [Obesity, unspecified] Onset: 4 Chronic Other nutritional; endocrine; and metabolic disorders (17 sources) Overweight in adulthood with body mass index of 25 or more but less than 30; 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: [Body mass index (BMI) 29.0-29.9, adult] Onset: 2 Episodic Other nutritional; endocrine; and metabolic disorders (15 sources) Overweight; 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: [Overweight] Onset: 2 Episodic Other skin disorders (1 source) Skin finding; 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: [Excessive and redundant skin and subcutaneous tissue] Episodic Other skin disorders (1 source) Nonscarring hair loss, unspecified; 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: [Nonscarring hair loss, unspecified] Onset: 3 Episodic Pancreatic disorders (not diabetes) (5 sources) Cyst of pancreas; 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: [Cyst of pancreas] Onset: 3 Episodic Personality disorders (20 sources) Borderline personality disorder; 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: [Borderline personality disorder] Onset: 0 05-23-2020 Chronic Poisoning by psychotropic agents (15 sources) Intentional benzodiazepine overdose; 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: [Poisoning by benzodiazepines, intentional self-harm, initial encounter] 04-21-2022 Episodic Residual codes; unclassified (1 source) Patient encounter status; 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: [Encounter for procedure for purposes other than remedying health state, unspecified] Episodic Residual codes; unclassified (4 sources) Procedure and treatment not carried out due to patient leaving prior to being seen by health care provider; 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: [PROC AND TX NOT CARRIED OUT PT LEAVE] Onset: 2 Episodic Residual codes; unclassified (1 source) Pelvic organ finding; 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: [Acquired absence of both cervix and uterus] Onset: 3 Episodic Spondylosis; intervertebral disc disorders; other back problems (1 source) Backache; 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: [Dorsalgia, unspecified] Episodic Sprains and strains (1 source) Injury of muscle and tendon at ankle and foot level; 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: [Strain of unspecified muscle and tendon at ankle and foot level, left foot, initial encounter] Onset: 2 Episodic Substance-related disorders (20 sources) Smoker; 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: [Nicotine dependence] Onset: 2 03-06-2015 Chronic Comment on above: Added secondary to d ocumentation in Social History. Unclassified (5 sources) History of clinical finding in subject; 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: [History of nicotine use] Onset: 0 05-23-2020 Unclassified (2 sources) Patient encounter status; 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: [Preoperative testing] Unclassified (18 sources) History of bypass of stomach Onset: 1 04-21-2022 Unclassified (1 source) CONTACT W/AND (SUSP) EXPOS COVID-19; 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: [CONTACT W/AND (SUSP) EXPOS COVID-19] Onset: 2 Unclassified (1 source) Cyst of abdomen; 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: [Cyst of abdomen] 08-15-2023 Viral infection (1 source) COVID-19; 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: [COVID-19] Onset: 2 Past or Other Problems Problem Classification Problem Date Documented Da te Episodic/Chronic Abdominal hernia (7 sources) Hiatal hernia; 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: [Diaphragmatic hernia without obstruction or gangrene] Resolved: 07-24-2021 Episodic Acquired foot deformities (8 sources) Acquired bilateral pes planus; 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: [Flat foot [pes planus] (acquired), right foot] Onset: 05-23-2020 05-23-2020 Episodic Diseases of mouth; excluding dental (4 sources) Lesion of oral mucosa; 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: [Unspecified lesions of oral mucosa] Onset: 02-06-2022 Episodic Fever of unknown origin (3 sources) Fever, unspecified; 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: [FEVER UNSPECIFIED] Onset: 05-30-2022 Episodic Fluid and electrolyte disorders (6 sources) Dehydration; 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: [Dehydration] Onset: 01-26-2021 Resolved: 02-25-2021 Episodic Menstrual disorders (6 sources) Excessive and frequent menstruation with irregular cycle; 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: [Menorrhagia] Onset: 10-30-2022 Resolved: 05-27-2023 Chronic Nutritional deficiencies (2 sources) Iron deficiency; 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: [Serum iron low] Onset: 05-27-2023 05-27-2023 Episodic Other complications of (9 sources) Poor growth affecting management; 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: [Maternal care for other known or suspected poor growth, unspecified trimester, not applicable or unspecified] Onset: 07-03-2008 07-03-2008 Episodic Other connective tissue disease (8 sources) Pain in both feet; 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: [Pain in right foot] Onset: 05-23-2020 05-23-2020 Episodic Other gastrointestinal disorders (11 sources) History of bypass of stomach; 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: [Bariatric surgery status] Onset: 01-07-2021 Episodic Other gastrointestinal disorders (4 sources) Bariatric surgery status; 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: [Bariatric surgery status] Onset: 01-07-2021 Episodic Other gastrointestinal disorders (1 source) Constipation, unspecified; 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: [CONSTIPATION UNSPECIFIED] Onset: 11-19-2021 Episodic Other gastrointestinal disorders (1 source) Other specified disorders of peritoneum; 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: [OTHER SPEC DISORDERS PERITONEUM] Onset: 11-19-2021 Episodic Other nutritional; endocrine; and metabolic disorders (7 sources) Body mass index 40+ - severely obese; 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: [Morbid (severe) obesity due to excess calories] Onset: 05-16-2020 Resolved: 07-24-2021 Chronic Other nutritional; endocrine; and metabolic disorders (1 source) Overweight; 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: [Overweight] Onset: 11-20-2021 Episodic Other nutritional; endocrine; and metabolic disorders (1 source) Body mass index 25-29 - overweight; 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: [Overweight] Onset: 11-20-2021 11-20-2021 Episodic Other upper respiratory infections (4 sources) Acute upper respiratory infection, unspecified; 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: [Acute pharyngitis, unspecified] Onset: 04-07-2022 Episodic Peripheral and visceral atherosclerosis (16 sources) Omental infarction; 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: [Acute infarction of intestine, part and extent unspecified] Onset: 01-31-2021 Resolved: 05-27-2023 Episodic Peritonitis and intestinal abscess (4 sources) Abdominal abscess; 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: [Peritoneal abscess] Onset: 01-30-2021 Resolved: 05-27-2023 Episodic Residual codes; unclassified (4 sources) History of operative procedure on foot; 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: [Other specified postprocedural states] Onset: 11-20-2022 Episodic Screening and history of mental health and substance abuse codes (15 sources) History of clinical finding in subject; 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: [Personal history of nicotine dependence] Onset: 05-23-2020 05-23-2020 Episodic Suicide and intentional self-inflicted injury (4 sources) Suicidal ideations; 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: [SUICIDAL IDEATIONS] Onset: 01-30-2022 Episodic Unclassified (20 sources) Onset: 12-22-2006 Resolved: 04-18-2016 04-20-2016 Unclassified (1 source) Contact with and (suspected) exposure to covid-19 Z20.822 Viral infection (1 source) Viral infection, unspecified; 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: [VIRAL INFECTION UNSPECIFIED] Onset: 06-13-2022 Episodic Results Test Name Value Interpretation Reference Range Facility CBC panel Auto (Bld)on 08-31 Erythrocyte distribution width (RBC) [Ratio] 14.7 % Normal 11.5-15.0 [facility] Comment on above: Order Comment: Speci men Type: BLOOD SPECIMEN Ordering Facility: [facility] Address: [address] [place] [address] Performed By: #### 5 8410-2 #### [facility] CLIA [id number] [address] [place] [address] [place] Hematocrit (Bld) [Volume fraction] 36.9 % Normal 36.0-46.0 [facility] Comment on above: Order Comment: Speci men Type: BLOOD SPECIMEN Ordering Facility: [facility] Address: [address] [place] [address] Performed By: #### 5 8410-2 #### [facility] CLIA [id number] [address] [place] [address] [place] Hemoglobin (Bld) [Mass/Vol] 11.7 g/dL Normal 11.5-15.5 [facility] Comment on above: Order Comment: Speci men Type: BLOOD SPECIMEN Ordering Facility: [facility] Address: [address] [place] [address] Performed By: #### 5 8410-2 #### [facility] CLIA [id number] [address] [place] [address] [place] MCH (RBC) [Entitic mass] 29.8 pg Normal 26.0-34.0 [facility] Comment on above: Order Comment: Speci men Type: BLOOD SPECIMEN Ordering Facility: [facility] Address: [address] [place] [address] Performed By: #### 5 8410-2 #### [facility] CLIA [id number] [address] [place] [address] [place] MCHC (RBC) [Mass/Vol] 31.7 g/dL Normal 30.5-36.0 [facility] Comment on above: Order Comment: Speci men Type: BLOOD SPECIMEN Ordering Facility: [facility] Address: [address] [place] [address] Performed By: #### 5 8410-2 #### [facility] CLIA [id number] [address] [place] [address] [place] MCV (RBC) [Entitic vol] 93.9 fL Normal 80.0-100.0 [facility] Comment on above: Order Comment: Speci men Type: BLOOD SPECIMEN Ordering Facility: [facility] Address: [address] [place] [address] Performed By: #### 5 8410-2 #### [facility] CLIA [id number] [address] [place] [address] [place] Nucleated RBC (Bld) [#/Vol] 10*3/uL Normal <0.01 [facility] Comment on above: Order Comment: Speci men Type: BLOOD SPECIMEN Ordering Facility: [facility] Address: [address] [place] [address] Performed By: #### 5 8410-2 #### [facility] CLIA [id number] [address] [place] [address] [place] Platelet mean volume (Bld) [Entitic vol] 11.1 fL Normal 9.0-12.7 [facility] Comment on above: Order Comment: Speci men Type: BLOOD SPECIMEN Ordering Facility: [facility] Address: [address] [place] [address] Performed By: #### 5 8410-2 #### [facility] CLIA [id number] [address] [place] [address] [place] Platelets (Bld) [#/Vol] 297 10*3/uL Normal 150-400 [facility] Comment on above: Order Comment: Speci men Type: BLOOD SPECIMEN Ordering Facility: [facility] Address: [address] [place] [address] Performed By: #### 5 8410-2 #### [facility] CLIA [id number] [address] [place] [address] [place] RBC (Bld) [#/Vol] 3.93 10*6/uL Normal 3.90-5.20 [facility] Comment on above: Order Comment: Speci men Type: BLOOD SPECIMEN Ordering Facility: [facility] Address: [address] [place] [address] Performed By: #### 5 8410-2 #### [facility] CLIA [id number] [address] [place] [address] [place] WBC (Bld) [#/Vol] 6.82 10*3/uL Normal 3.70-11.00 [facility] Comment on above: Order Comment: Philip birmingham Type: BLOOD SPECIMEN Ordering Facility: [facility] Address: [facility] [address] [address] Performed By: #### 5 8410-2 #### [facility] CLIA [id number] [address] [place] CNOVon 08-31-2023 CNOV Office Visit ([id number] ) SHAZIA CHOU ([id number]) 1990 F Date Time Provider Department 08/31/23 11:00 AM LEONELA GROSSMAN [id number] During your visit today, we recorded the following information about you: Temperature Pulse Blood pressure Weight 97.9 degrees 78/minute 123/88 89.4 kg Height 1.702 m [place], [place] 08/31/2023 11:14 AM Signed What is the reason for your visit today? Consult. Pancreas mass. Family hx: pancreatic cancer. Who is your referring physician? Central scheduling Are you having poor oral intake? Yes, at times has trouble swallowing, not much of appetite, nauseated Have you had unintentional weight loss of 15 lbs/7 Kg in the last 3-6 months? NO Bowels: diarrhea Wound: Temperature: No Drains: No Leonela Grossman MD 08/31/2023 3:01 PM Signed New Patient Consult REASON FOR VISIT Self referred - pancreas cyst History of Present Illness: Shazia Chou is a 32 year old female with history of Tian-en-Y gastric bypass 2-1/2 years ago who recently developed difficulty swallowing, nausea, and intermittent cramping left upper quadrant pain. The pain also occurs frequently in the right upper quadrant as well. She develops dry heaves with any type of food even liquids sometimes with frequent emesis. She used to have severe GERD that improved after the bypass surgery and states that these complaints are different. She had an ultrasound and MRI that were negative for cholelithiasis and cholecystitis. Her mother a few years ago. She started smoking and developed alcohol dependence then but went through the 12-step program and currently sober for more than 160 years. Her father also recently which exacerbated her stress. She is on Chantix and Vivitrol injections. She denies having a diagnosed episode of acute pancreatitis during these events. She is not diabetic and does not take any Creon or nutritional supplements. 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 This may represent a pseudocyst or a lymphangioma. Cystic neoplasm is considered less likely. The lesion is mildly to moderately enlarging since 2020, but there is no suspicious internal enhancement appreciable. In the absence of definitive diagnosis, suggest continued imaging follow-up. Her past surgical history includes: Tubal ligation (04/2016); Foot surgery (Right); Plantar fascia surgery (Bilateral); Upper gastrointestinal endoscopy; Upper gastrointestinal endoscopy (N/A, 09/28/2020); section; and Elbow surgery (Left, 2019). Family history: pancreas cancer in her father; diabetes in her mother; High Blood Pressure in her mother; Stroke in her mother. FUNCTIONAL STATUS: Climb a flight of stairs or walk up a hill (5.50 METs) No past medical history on file. PAST SURGICAL HISTORY Procedure Laterality Date NONE No family history on file. Social History Tobacco Use Smoking status: Every Day Packs/day: 1 Types: Cigarettes Smokeless tobacco: Never Substance Use Topics Alcohol use: Yes Comment: beer and wine once a month MEDICATIONS Current Outpatient Medications Medication Sig Dispense Refill acetaZOLAMIDE (DIAMOX) 250 mg tablet Take 250 mg by mouth. brexpiprazole (REXULTI) 4 mg tablet Take by mouth once daily. DULoxetine (CYMBALTA) 60 mg capsule Take 60 mg by mouth once daily. pantoprazole DR (PROTONIX) 40 mg tablet Take 40 mg by mouth once daily. zlxntkwimstw-qbi-pggw -FA-vit K (BARIATRIC MULTIVITAMINS) 45 mg iron- 800 mcg-120 mcg cap Take by mouth. calcium citrate-vitamin D3 500 mg-12.5 mcg /5 gram powd Take by mouth. iv contrast (will be provided with radiology test) MRI PANC/TANMAY Inject, intravenously, once for 1 dose. No IV access, insert saline lock prior to the beginning of sedation, infusion, injection of imaging exam. Discontinue saline lock post exam. If Pt. has a central line or IVAD, may access for administration according to line specific nursing protocol. Once exam is complete flush line and de-access according to line specific nursing protocol in the MR contrast administration guidelines link. 1 Each 0 acetaZOLAMIDE SR (DIAMOX SEQUELS) 500 mg capsule TAKE 1 CAPSULE BY MOUTH TWICE DAILY. START FROM 500MG DAILY, INCREASE TO TWICE A DAY IN A WEEK 180 capsule 1 No current facility-administered medications for this visit. CURRENT ALLERGIES ALLERGIES Allergen Reactions Coconut Swelling REVIEW OF SYSTEMS PAIN ASSESSMENT: Pain Pain Level: 3 Pain Location: Abdomen (whole upper area) Duration Amount of Time: 30 Duration Units: Days Frequency: Continuous Intervention/Comfort measure: Med (more content not included)... Normal [facility] Comprehensive metabolic 2000 panelon 08-31-2023 Albumin [Mass/Vol] 4.4 g/dL Normal 3.9-4.9 [facility] Comment on above: Order Comment: Speci valencia Type: BLOOD SPECIMEN Ordering Facility: [facility] Address: [address] [place] [address] Performed By: #### L SONALI, 10410-4 #### [facility] CLIA [id number] [address] [place] [address] [place] ALP [Catalytic activity/Vol] 75 U/L Normal 34-123 [facility] Comment on above: Order Comment: Cecili men Type: BLOOD SPECIMEN Ordering Facility: [facility] Address: [address] [place] [address] Performed By: #### L SONALI, 21957-8 #### [facility] CLIA [id number] [address] [place] [address] [place] ALT [Catalytic activity/Vol] 16 U/L Normal 7-38 [facility] Comment on above: Order Comment: Speci men Type: BLOOD SPECIMEN Ordering Facility: [facility] Address: [address] [place] [address] Performed By: #### L IPNF, #### [facility] CLIA [id number] [address] [place] [address] [place] Anion gap [Moles/Vol] 11 mmol/L Normal 9-18 [facility] Comment on above: Order Comment: Speci men Type: BLOOD SPECIMEN Ordering Facility: [facility] Address: [address] [place] [address] Performed By: #### L IPNF, #### [facility] CLIA [id number] [address] [place] [address] [place] AST [Catalytic activity/Vol] 21 U/L Normal 13-35 [facility] Comment on above: Order Comment: Speci men Type: BLOOD SPECIMEN Ordering Facility: [facility] Address: [address] [place] [address] Performed By: #### L IPNF, #### [facility] CLIA [id number] [address] [place] [address] [place] Bilirubin [Mass/Vol] 0.2 mg/dL Normal 0.2-1.3 [facility] Comment on above: Order Comment: Speci men Type: BLOOD SPECIMEN Ordering Facility: [facility] Address: [address] [place] [address] Performed By: #### L IPNF, #### [facility] CLIA [id number] [address] [place] [address] [place] Calcium [Mass/Vol] 9.7 mg/dL Normal 8.5-10.2 [facility] Comment on above: Order Comment: Speci men Type: BLOOD SPECIMEN Ordering Facility: [facility] Address: [address] [place] [address] Performed By: #### L IPNF, #### [facility] CLIA [id number] [address] [place] [address] [place] Chloride [Moles/Vol] 106 mmol/L High 97-105 [facility] Comment on above: Order Comment: Speci men Type: BLOOD SPECIMEN Ordering Facility: [facility] Address: [address] [place] [address] Performed By: #### L IPNF, #### [facility] CLIA [id number] [address] [place] [address] [place] CO2 [Moles/Vol] 25 mmol/L Normal 22-30 [facility] Comment on above: Order Comment: Speci men Type: BLOOD SPECIMEN Ordering Facility: [facility] Address: [address] [place] [address] Performed By: #### L IPNF, #### [facility] CLIA [id number] [address] [place] [address] [place] Creatinine [Mass/Vol] 0.55 mg/dL Low 0.58-0.96 [facility] Comment on above: Order Comment: Speci men Type: BLOOD SPECIMEN Ordering Facility: [facility] Address: [address] [place] [address] Performed By: #### L IPNF, #### [facility] CLIA [id number] [address] [place] [address] Creatinine and Glomerular filtration rate.predicted panel (S/P/Bld) 124 mL/min/1.73m??? Normal >=60 [facility] Comment on above: Order Comment: Speci men Type: BLOOD SPECIMEN Ordering Facility: [facility] Address: [address] [place] [address] Result Comment: Brenda mated Glomerular Filtration Rate (eGFR) is calculated using the 2020 CKD-EPI creatinine equation. This equation utilizes serum creatinine, sex, and age as parameters. The creatinine assay has traceable calibration to isotope dilution-mass spectrometry. Refer to KDIGO guidelines for clinical interpretation. In patients with unstable renal function, e.g. those with acute kidney injury, the eGFR may not accurately reflect actual GFR. Performed By: #### L IPNF, #### [facility] CLIA [id number] [place] [address] [place] Glucose [Mass/Vol] 93 mg/dL Normal 74-99 [facility] Comment on above: Order Comment: Philip birmingham Type: BLOOD SPECIMEN Ordering Facility: [facility] Address: [address] [place] [address] Result Comment: The [place] Diabetes Association (ADA) provides guidance for cutoff values for fasting glucose and random glucose. The ADA defines fasting as no caloric intake for at least 8 hours. Fasting plasma glucose results between 100 to 125 mg/dL indicate increased risk for diabetes (prediabetes). Fasting plasma glucose results greater than or equal to 126 mg/dL meet the criteria for diagnosis of diabetes. In the absence of unequivocal hyperglycemia, results should be confirmed by repeat testing. In a patient with classic symptoms of hyperglycemia or hyperglycemic crisis, random plasma glucose results greater than or equal to 200 mg/dL meet the criteria for diagnosis of diabetes. Reference: Standards of Medical Care in Diabetes 2016, [place] [employer] Association. Diabetes Care. 2016.39(Suppl 1). Performed By: #### L IPNF, 20065-2 #### [facility] CLIA [id number] [address] [place] [address] [place] Potassium [Moles/Vol] 4.7 mmol/L Normal 3.7-5.1 [facility] Comment on above: Order Comment: Philip birmingham Type: BLOOD SPECIMEN Ordering Facility: [facility] Address: [address] [place] [address] Performed By: #### L IPNF, 82838-2 #### [facility] CLIA [id number] [address] [place] [address] [place] Protein [Mass/Vol] 7.3 g/dL Normal 6.3-8.0 [facility] Comment on above: Order Comment: Philip birmingham Type: BLOOD SPECIMEN Ordering Facility: [facility] Address: [address] [place] [address] Performed By: #### L IPNF, 29199-3 #### [facility] CLIA [id number] [address] [place] [address] [place] Sodium [Moles/Vol] 142 mmol/L Normal 136-144 [facility] Comment on above: Order Comment: Philip birmingham Type: BLOOD SPECIMEN Ordering Facility: [facility] Address: [address] [place] [id number] Performed By: #### L IPNF, 23702-8 #### [facility] CLIA [id number] [place] OF [facility] Urea nitrogen [Mass/Vol] 9 mg/dL Normal 7-21 [facility] Comment on above: Order Comment: Speci men Type: BLOOD SPECIMEN Ordering Facility: [facility] Address: [address] [place] [id number] Performed By: #### L IPNF, 98028-8 #### [facility] CLIA [id number] [address] [place] [id number] [place] HISTORY PHYSICALon HISTORY PHYSICAL HNO ID: [id number] Author: Leonela Grossman MD Service: ? Author Type: Physician Type: HANDP Filed: 08/31/2023 3:01 PM Note Text: New Patient Consult REASON FOR VISIT Self referred - pancreas cyst History of Present Illness: Shazia Chou is a 32 year old female with history of Tain-en-Y gastric bypass 2-1/2 years ago who recently developed difficulty swallowing, nausea, and intermittent cramping left upper quadrant pain. The pain also occurs frequently in the right upper quadrant as well. She develops dry heaves with any type of food even liquids sometimes with frequent emesis. She used to have severe GERD that improved after the bypass surgery and states that these complaints are different. She had an ultrasound and MRI that were negative for cholelithiasis and cholecystitis. Her mother a few years ago. She started smoking and developed alcohol dependence then but went through the 12-step program and currently sober for more than 160 years. Her father also recently which exacerbated her stress. She is on Chantix and Vivitrol injections. She denies having a diagnosed episode of acute pancreatitis during these events. She is not diabetic and does not take any Creon or nutritional supplements. 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 This may represent a pseudocyst or a lymphangioma. Cystic neoplasm is considered less likely. The lesion is mildly to moderately enlarging since 2020, but there is no suspicious internal enhancement appreciable. In the absence of definitive diagnosis, suggest continued imaging follow-up. Her past surgical history includes: Tubal ligation (04/2016); Foot surgery (Right); Plantar fascia surgery (Bilateral); Upper gastrointestinal endoscopy; Upper gastrointestinal endoscopy (N/A, 09/28/2020); section; and Elbow surgery (Left, 2019). Family history: pancreas cancer in her father; diabetes in her mother; High Blood Pressure in her mother; Stroke in her mother. FUNCTIONAL STATUS: Climb a flight of stairs or walk up a hill (5.50 METs) No past medical history on file. PAST SURGICAL HISTORY Procedure Laterality Date NONE No family history on file. Social History Tobacco Use Smoking status: Every Day Packs/day: 1 Types: Cigarettes Smokeless tobacco: Never Substance Use Topics Alcohol use: Yes Comment: beer and wine once a month MEDICATIONS Current Outpatient Medications Medication Sig Dispense Refill acetaZOLAMIDE (DIAMOX) 250 mg tablet Take 250 mg by mouth. brexpiprazole (REXULTI) 4 mg tablet Take by mouth once daily. DULoxetine (CYMBALTA) 60 mg capsule Take 60 mg by mouth once daily. pantoprazole DR (PROTONIX) 40 mg tablet Take 40 mg by mouth once daily. szwtyzttlzoo-xcr-cqsz -FA-vit K (BARIATRIC MULTIVITAMINS) 45 mg iron- 800 mcg-120 mcg cap Take by mouth. calcium citrate-vitamin D3 500 mg-12.5 mcg /5 gram powd Take by mouth. iv contrast (will be provided with radiology test) MRI PANC/TANMAY Inject, intravenously, once for 1 dose. No IV access, insert saline lock prior to the beginning of sedation, infusion, injection of imaging exam. Discontinue saline lock post exam. If Pt. has a central line or IVAD, may access for administration according to line specific nursing protocol. Once exam is complete flush line and de-access according to line specific nursing protocol in the MR contrast administration guidelines link. 1 Each 0 acetaZOLAMIDE SR (DIAMOX SEQUELS) 500 mg capsule TAKE 1 CAPSULE BY MOUTH TWICE DAILY. START FROM 500MG DAILY, INCREASE TO TWICE A DAY IN A WEEK 180 capsule 1 No current facility-administered medications for this visit. CURRENT ALLERGIES ALLERGIES Allergen Reactions Coconut Swelling REVIEW OF SYSTEMS PAIN ASSESSMENT: Pain Pain Level: 3 Pain Location: Abdomen (whole upper area) Duration Amount of Time: 30 Duration Units: Days Frequency: Continuous Intervention/Comfort measure: Medication, Relaxation General: Appears well Neuro: Idiopathic intracranial hypertension Respiratory: No history of current cough or dyspnea, or pneumonia in the past 6 weeks. No history of respiratory/pulmonary symptoms or problems Cardiovascular: Primary hypertension GI: See HPI : No history of UTI in past 6 weeks. No history of renal failure. Not currently on or requiring dialysis. No history of symptoms or problems. Endocrine: No history of diabetes. Has not taken steroids within the past 30 days. No history of endocrinological symptoms or problems. Hematology: No history of bleeding or clotting disorder. Pt is not taking anti-coagulation or platelet medications. No history of hematological symptoms or problem (more content not included)... Normal [facility] LIPID PANEL, NONFASTINGon Cholesterol [Mass/Vol] 154 mg/dL Normal <200 [facility] Comment on above: Order Comment: Philip birmingham Type: BLOOD SPECIMEN Ordering Facility: [facility] Address: [address] [place] [address] Result Comment: <200 mg/dL, Desirable 200-239 mg/dL, Borderline high >239 mg/dL, High Performed By: #### L IPNF, 57054-2 #### [facility] CLIA [id number] [address] [place] [address] [place] HDL CHOLESTEROL, NF 69 mg/dL Normal >39 [facility] Comment on above: Order Comment: Philip birmingham Type: BLOOD SPECIMEN Ordering Facility: [facility] Address: [address] [place] [address] Result Comment: 40-5 9 mg/dL, Acceptable >59 mg/dL, High: Negative risk factor for coronary heart disease <40 mg/dL, Low: Positive risk factor for coronary heart disease Performed By: #### L IPNF, 88974-2 #### [facility] CLIA [id number] [address] [place] [address] [place] [facility] LDL CHOLESTEROL, NF 66 mg/dL Normal <100 [facility] Comment on above: Order Comment: Philip birmingham Type: BLOOD SPECIMEN Ordering Facility: [facility] Address: [address] [place] [address] Result Comment: <100 mg/dL, Optimal 100-129 mg/dL, Near optimal/above optimal 130-159 mg/dL, Borderline high 160-189 mg/dL, High >189 mg/dL, Very high Secondary prevention optimal LDL Cholesterol levels are recommended to be < 70 mg/dL Performed By: #### L IPNF, 21511-2 #### [facility] CLIA [id number] [address] [place] [address] LDL/HDL RATIO, NF 0.96 mg/dL Normal <2.54 [facility] Comment on above: Order Comment: Philip birmingham Type: BLOOD SPECIMEN Ordering Facility: [facility] Address: [address] [place] [address] Result Comment: Eric kasper: 1. National Cholesterol Education Program ATP III Guideline At-A-Glance Quick Desk Reference: National Heart, Lung, and Blood [place]. National Institutes of Health. 2001: NIH Publication No. 01-3305. 2. An International Atherosclerosis Society position paper: global recommendations for the management of dyslipidemia: executive summary, Atherosclerosis. 2014: 232(2):410-413. Performed By: #### L IPNF, 45876-8 #### [facility] CLIA [id number] [address] [place] [address] OF [facility] NON HDL CHOL, NF 85 mg/dL Normal <130 [facility] Comment on above: Order Comment: Philip birmingham Type: BLOOD SPECIMEN Ordering Facility: [facility] Address: [address] [place] [address] Result Comment: <130 mg/dL, Optimal 130-159 mg/dL, Near optimal/above optimal 160-189 mg/dL, Borderline high 190-219 mg/dL, High >219 mg/dL, Very high Secondary prevention optimal non HDL Cholesterol levels are recommended to be <100 mg/dL Performed By: #### L IPNF, 32263-1 #### [facility] CLIA [id number] [address] [place] [address] [place] T CHOL/HDL RATIO NF 2.23 mg/dL Normal <5.10 [facility] Comment on above: Order Comment: Speci men Type: BLOOD SPECIMEN Ordering Facility: [facility] Address: [address] [place] [address] Performed By: #### L IPNF, 60876-9 #### [facility] CLIA [id number] [address] [place] [address] [place] TRIGLYCERIDES, NF 96 mg/dL Normal <150 [facility] Comment on above: Order Comment: Speci men Type: BLOOD SPECIMEN Ordering Facility: [facility] Address: [address] [place] [address] Result Comment: <150 mg/dL, Normal 150-199 mg/dL, Borderline high 200-499 mg/dL, High >499 mg/dL, Very high Performed By: #### L IPNF, 52413-2 #### [facility] CLIA [id number] [address] [place] [address] [place] VLDL CHOLESTEROL, NF 19 mg/dL Normal <30 [facility] Comment on above: Order Comment: Speci men Type: BLOOD SPECIMEN Ordering Facility: [facility] Address: [address] [place] [address] Performed By: #### L IPNF, 71011-2 #### [facility] CLIA [id number] [address] [place] [address] [place] PHOSPHATIDYLETHANOL (PETH)on 08-31-2023 EER PETH See Note Normal [facility] Comment on above: Order Comment: Speci men Type: BLOOD SPECIMEN Ordering Facility: [facility] Address: [address] [place] [address] Result Comment: Auth orized individuals can access the [employer] Enhanced Report using the following link: [email or web address] Performed By: #### P ETH #### [facility] CLIA [id number] [address] [place] [address] PETH 16:0/18.2 (PLPETH) 244 ng/mL Normal [facility] Comment on above: Order Comment: Speci men Type: BLOOD SPECIMEN Ordering Facility: [facility] Address: [address] [place] [address] Result Comment: Refe rence ranges are not well established. Performed By: #### P ETH #### [facility] CLIA [id number] [address] [place] [address] PETH 16:0/18:1 (POPETH) 169 ng/mL Normal [facility] Comment on above: Order Comment: Speci men Type: BLOOD SPECIMEN Ordering Facility: [facility] Address: [address] [place] [address] Result Comment: PEth 16:0/18:1 (POPEth) Less than 10 ng/mL............Not detected Less than 20 ng/mL............Abstinence or light alcohol consumption 20 - 200 ng/mL................Moderate alcohol consumption Greater than 200 ng/mL........Heavy alcohol consumption or chronic alcohol use (Reference: Sophie Gonzalez and Crystal Zabala 2018 J. Forensic Sci) Performed By: #### P ETH #### [facility] CLIA [id number] [address] [place] [address] PETH INTERPRETATION See Note Normal [facility] Comment on above: Order Comment: Speci men Type: BLOOD SPECIMEN Ordering Facility: [facility] Address: [address] [place] [address] Result Comment: Phos phatidylethanol (PEth) is a group of phospholipids formed in the presence of ethanol, phospholipase D and phosphatidylcholine. PEth is known to be a direct alcohol biomarker. The predominant PEth homologues are PEth 16:0/18:1 (POPEth) and PEth 16:0/18:2 (PLPEth), which account for 37-46% and 26-28% of the total PEth homologues, respectively. PEth is incorporated into the phospholipid membrane of red blood cells and has a general half-life of 4-10 days and a window of detection of 2-4 weeks. However, the window of detection is longer in individuals who chronically or excessively consume alcohol. The limit of quantification is 10 ng/mL. Serial monitoring of PEth may be helpful in monitoring alcohol abstinence over time. PEth results should be interpreted in the context of the patient's clinical and behavioral history. Patients with advanced liver disease may have falsely elevated PEth concentrations (Larisa RUDOLPH et al 2018, Alcoholism Clinical & Experimental Research). This test was developed and its performance characteristics determined by [facility]. It has not been cleared or approved by the U.S. Food and Drug Administration. This test was performed in a CLIA-certified laboratory and is intended for clinical purposes. Performed By: [facility] [address] [place] [address] Licensed Sales Producer: Osmar Salcido MD, PhD CLIA Number: [id number] Performed By: #### P ETH #### [facility] CLIA [id number] [address] [place] [address] Ernesto 08-21-2023 CNPN Telephone ([id number]) SHAZIA CHOU ([id number]) 1990 F Date Time Provider Department 08/21/23 LEONELA GROSSMAN [id number] During your visit today, we recorded the following information about you: Sindy Ruvalcaba RN 08/21/2023 10:19 AM Signed Called made to [facility] to push MRI from 08/20 through to our system. Allergies As of Date: 08/21/2023 Noted Allergy Reaction COCONUT 11/20/2022 7 - Swelling Date Reviewed: 11/20/2022 Reviewed by: Edith Bedolla MA - Fully Assessed Reason for Visit: Results [95] Prescriptions as of 08/21/2023 - acetaZOLAMIDE SR (DIAMOX SEQUELS) 500 mg capsule TAKE 1 CAPSULE BY MOUTH TWICE DAILY. START FROM 500MG DAILY, INCREASE TO TWICE A DAY IN A WEEK - brexpiprazole (REXULTI) 4 mg tablet Take by mouth once daily. - DULoxetine (CYMBALTA) 60 mg capsule Take 60 mg by mouth once daily. - pantoprazole DR (PROTONIX) 40 mg tablet Take 40 mg by mouth once daily. - [id number]-[id number] -FA-vit K (BARIATRIC MULTIVITAMINS) 45 mg iron- 800 mcg-120 mcg cap Take by mouth. - calcium citrate-vitamin D3 500 mg-12.5 mcg /5 gram powd Take by mouth. 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 TECHNIQUE: MRI of the abdomen was performed using axial and coronal SSFSE images, coronal SSFP images, axial diffusion-weighted images, multiplanar HASTE images for MRCP, axial pre and postcontrast T1-weighted images with fat saturation, axial SSFP images, axial fat-saturated fast spin echo T2-weighted images, axial pre and postcontrast T1-weighted images with fat saturation and postprocessed subtraction images. Patient received 19 mL MultiHance IV. FINDINGS: Again demonstrated along the inferior aspect of the pancreatic body and left anterior aspect of the root of the mesentery, there is a well-defined slightly lobulated cystic lesion which measures 3.7 x 2.8 cm on axial images and 4.4 cm in craniocaudal height on coronal images. On the comparison CT study this measured 3.1 x 2.4 cm on axial images and 3.6 cm in craniocaudal height. On the oldest available comparison CT from 11/22/2020, the lesion measured approximately 2.0 x 1.5 x 2.7 cm. On postcontrast images there is no evidence of internal enhancement within the lesion. Wall appears markedly thin. On coronal images the lesion is not definitely within the pancreatic parenchyma and there is no evidence of communication to the main pancreatic duct. The biliary and pancreatic ducts appear nondilated. Gallbladder is mildly distended and otherwise unremarkable. The liver demonstrates no definite evidence of significant steatosis and no suspicious focal parenchymal lesions. Spleen appears normal in size. Adrenal glands are unremarkable. No suspicious renal lesions are seen. There is no evidence of abdominal lymphadenopathy. There are postsurgical changes compatible with prior gastric bypass surgery. IMPRESSION: 1. Thin-walled nonenhancing cystic lesion just below the pancreatic body near the mesenteric root. This may represent a pseudocyst or a lymphangioma. Cystic neoplasm is considered less likely. The lesion is mildly to moderately enlarging since 2020, but there is no suspicious internal enhancement appreciable. In the absence of definitive diagnosis, suggest continued imaging follow-up. 2. Status post gastric bypass. Interpreted by: Troy Bond MD Signed by: Troy Bond MD 08/20/23 Final result Normal [facility] Vitamin Aon 08-16-2023 Interpretation Normal Normal [facility] Comment on above: Result Comment: (NOT E) This test was developed and its performance characteristics determined by [facility]. It has not been cleared or approved by the US Food and Drug Administration. This test was performed in a CLIA certified laboratory and is intended for clinical purposes. Performed By: [facility] [address] [place] [address] Licensed Sales Producer: Osmar Salcido MD, PhD CLIA Number: [id number] Performed By: #### P THNCA, FEBC, FERI, GLYHGB, VD25 #### [place] [address] Soap Drier Operator: Harpal Adair MD #### TYREE OLIVO1, AZN #### [facility] [address] [place] [address] Soap Drier Operator: Patricio Zuñiga MD #### CP, MG, CDP #### [address] [place], [place] [id number] Soap Drier Operator: Hilton Armenta MD Retinol (Vitamin A) 0.60 mg/L Normal 0.30-1.20 [facility] Comment on above: Performed By: #### P THNCA, FEBC, FERI, GLYHGB, VD25 #### [facility] [address] [place], [place] [id number] Soap Drier Operator: Harpal Adair MD #### AGNES OLIVO, AZN #### [facility] [address] [place], [place] [id number] Soap Drier Operator: Patricio Zuñiga MD #### MG ANGEL, CDP #### [address] [place] [address] Soap Drier Operator: Hilton Armenta MD Retinyl Palmitate <0.02 Normal 0.00-0.10 [facility] Comment on above: Performed By: #### P DENNISA, FEBC, FERI, GLYHGB, VD25 #### [facility] [address] [place], [place] [id number] Soap Drier Operator: Harpal Adair MD #### AGNES OLIVO, AZN #### [facility] [address] [place] [address] Soap Drier Operator: Patricio Zuñiga MD #### ANGEL, MG, CDP #### [address] [place] [address] Soap Drier Operator: Hilton Armenta MD Alanine aminotransferase [En zymatic activity/volume] in Serum or PlasmaOrdered By: Yoli Norris on 08-15-2023 ALT [Catalytic activity/Vol] 18 U/L [facility] Albumin [Mass/volume] in Ser um or Plasma by Bromocresol green (BCG) dye binding methoOrdered By: Yoli Norris on 08-15-2023 Albumin BCG dye [Mass/Vol] 4.6 g/dL 3.5-5.7 [facility] Alkaline phosphatase [Enzyma tic activity/volume] in Serum or PlasmaOrdered By: Yoli Norris on 08-15-2023 ALP [Catalytic activity/Vol] 77 U/L 34-104 [facility] Aspartate aminotransferase [ Enzymatic activity/volume] in Serum or PlasmaOrdered By: Yoli Norris on 08-15-2023 AST [Catalytic activity/Vol] 18 U/L 13-39 [facility] Basic Metabolic Panelon 12-0 Anion gap [Moles/Vol] 12.7 mmol/L Normal 6.0-15.0 [facility] Comment on above: Performed By: #### C BC, HEPATIC, BMP, LIPASE #### [facility] [address] Calcium [Mass/Vol] 9.8 mg/dL Normal 8.6-10.3 [facility] Comment on above: Performed By: #### C BC, HEPATIC, BMP, LIPASE #### [facility] [address] Chloride [Moles/Vol] 109 mmol/L High 98-107 [facility] Comment on above: Performed By: #### C BC, HEPATIC, BMP, LIPASE #### [facility] [address] CO2 [Moles/Vol] 21.8 mmol/L Normal 21.0-31.0 [facility] Comment on above: Performed By: #### C BC, HEPATIC, BMP, LIPASE #### [facility] [address] Creatinine [Mass/Vol] 0.76 mg/dL Normal 0.60-1.20 [facility] Comment on above: Performed By: #### C BC, HEPATIC, BMP, LIPASE #### [facility] [address] [place] [address] [place] [facility]inine [facility] 117.62 [facility] Comment on above: Performed By: #### C BC, HEPATIC, BMP, LIPASE #### [facility] [address] [place] [address] [place] GFR/1.73 sq M.predicted MDRD (S/P/Bld) [Vol rate/Area] mL/min/{1.73_m2} Normal [facility] Comment on above: Performed By: #### C BC, HEPATIC, BMP, LIPASE #### [address] Glucose [Mass/Vol] 85 mg/dL Normal 70-100 [facility] Comment on above: Result Comment: [facility] Glucose Reference Range is dependent on time and content of last meal. Glucose of more than 200 mg/dL in a nonstressed, ambulatory subject supports the diagnosis of Diabetes Mellitus. ADA recommended reference range Performed By: #### C BC, HEPATIC, BMP, LIPASE #### [address] Potassium [Moles/Vol] 3.5 mmol/L Normal 3.5-5.1 [facility] Comment on above: Performed By: #### C BC, HEPATIC, BMP, LIPASE #### [address] Sodium [Moles/Vol] 140 mmol/L Normal 136-145 [facility] Comment on above: Performed By: #### C BC, HEPATIC, BMP, LIPASE #### [address] Urea nitrogen [Mass/Vol] 11 mg/dL Normal 7-25 [facility] Comment on above: Performed By: #### C BC, HEPATIC, BMP, LIPASE #### [address] Basophils Auto (Bld) [#/Vol] Ordered By: Yoli Norris on 08-15-2023 Basophils (Bld) [#/Vol] 0.1 10*3/uL 0.0-0.2 [facility] Basophils/100 WBC Auto (Bld) Ordered By: Yoli Norris on 08-15-2023 Basophils/100 WBC (Bld) 0.5 % . F [facility] Bilirubin Test strip Ql (U)O rdered By: Yoli Norris on 08-15-2023 Bilirubin Ql (U) Negative Negative [facility] Bilirubin.direct [Mass/volum e] in Serum or PlasmaOrdered By: Yoli Norris on 08-15-2023 Bilirubin.direct [Mass/Vol] 0.00 mg/dL 0.03-0.18 [facility] Comment on above: If the DBIL is less than 0.1, IBIL is not able to becalculated. Bilirubin.total [Mass/volume ] in Serum or PlasmaOrdered By: Yoli Norris on 08-15-2023 Bilirubin [Mass/Vol] 0.3 mg/dL 0.3-1.[address] [facility] [address] abdomen pelvis w conon CT abdomen pelvis w con [facility] [place] [address] [place] [address] CT Scan Report Signed Patient: Shazia Chou MR#: [id number] : 1990 Acct:[id number] Age/Sex: 32 / F ADM Date: 08/15/23 Loc: ER Room: Type: [facility] ER Attending Dr: Copies to: Yoli Norris MD Ordering Provider: Yoli Norris MD Date of Service: 08/15/23 CT/CT abdomen pelvis w con: Abdominal Pain CT ABDOMEN AND PELVIS WITH CONTRAST COMPARISON: Outside ultrasound 08/12/2023 CLINICAL DATA: Upper abdominal pain and nausea. Spiral images were obtained through the abdomen pelvis following 90 mL of Isovue-300. This CT exam was performed using one or more following dose reduction techniques: Automated exposure control, adjustment of the mA and/or kV according to patient size, or use of iterative reconstruction technique. Limited cuts through the lung bases show no contributory findings. No calcified gallstones are identified. No intrahepatic masses are seen. The spleen, pancreas and adrenal glands show no acute findings. There are symmetric renal nephrograms, without hydr onephrosis. The abdominal aorta is normal caliber. No enlarged lymph nodes or ascites are seen. There are postoperative changes of bariatric surgery. There is a 3.6 cm fluid attenuation structure position between the posterior inferior stomach and pancreas, undetermined etiology and significance. This is likely the finding imaged on the comparison ultrasound. There is no report or other information regarding that exam, only the images. The small bowel loops are not dilated. There is stool along the colon. There is slight levoscoliotic curvature. There is bilateral L5 spondylolysis with associated spondylolisthesis. Images through the pelvis show no dilated small bowel. No appendiceal inflammation is seen. There is a small amount of distal colonic stool. No diverticular disease is noted. The uterus is surgically absent. The bladder shows no abnormalities for the degree of distention. No ascites is present. Patchy soft tissue density is present within the subcutaneous fat in the gluteal region, greater on the left. This might relate to medicinal injections. CT/CT abdomen pelvis w con IMPRESSION: NO BOWEL OR URINARY TRACT OBSTRUCTION. CYSTIC STRUCTURE BETWEEN THE STOMACH AND PANCREAS. THIS IS PROBABLY THE FINDING IMAGED ON RECENT OUTSIDE ULTRASOUND. ETIOLOGY AND SIGNIFICANCE IS UNCERTAIN. NO OTHER ACUTE FINDINGS. Impression dictated by: Gaye Peraza M.D.08/15/2023 1:03 PM Dictation Location: [place] [address] Transcribed By: MARKY 08/15/23 1303 Dictated By: Gaye Peraza MD 08/15/23 1256 Signed By: 08/15/23 1303 Normal [facility] Calcium [Mass/volume] in Ser um or PlasmaOrdered By: Yoli Norris on 08-15-2023 Calcium [Mass/Vol] 9.8 mg/dL 8.6-10.3 [facility] Carbon dioxide, total [Moles /volume] in Serum or PlasmaOrdered By: Yoli Norris on 08-15-2023 CO2 [Moles/Vol] 21.8 mmol/L 21.0-31.0 [facility] Chloride [Moles/volume] in S tushar or PlasmaOrdered By: Yoli Norris on 08-15-2023 Chloride [Moles/Vol] 109 mmol/L 98-107 [facility] Color Auto (U)Ordered By: Maribel Norris on 08-15-2023 Color (U) Yellow Yellow [facility] Complete Blood Count Auto Di ffon 08-15-2023 Basophils (Bld) [#/Vol] 0.1 10*3/uL Normal 0.0-0.2 [facility] Comment on above: Result Comment: PERF ORMED BY: [facility] [address] [place] [address] PATHOLOGIST MATTE CUTTER JOHNIE BOSS M.D. Performed By: #### C BC, HEPATIC, BMP, LIPASE #### [address] Basophils/100 WBC (Bld) 0.5 % Normal . F [facility] Comment on above: Performed By: #### C BC, HEPATIC, BMP, LIPASE #### [address] Eosinophils (Bld) [#/Vol] 0.2 10*3/uL Normal 0.0-0.45 [facility] Comment on above: Performed By: #### C BC, HEPATIC, BMP, LIPASE #### [address] Eosinophils/100 WBC (Bld) 2.1 % Normal . [facility] Comment on above: Performed By: #### C BC, HEPATIC, BMP, LIPASE #### [address] Erythrocyte distribution width (RBC) [Ratio] 15.1 % Normal 11.9-15.3 [facility] Comment on above: Performed By: #### C BC, HEPATIC, BMP, LIPASE #### [address] Hematocrit (Bld) [Volume fraction] 37.2 % Normal 34.0-46.4 [facility] Comment on above: Performed By: #### C BC, HEPATIC, BMP, LIPASE #### [address] Hemoglobin (Bld) [Mass/Vol] 12.2 g/dL Normal 11.8-15.4 [facility] Comment on above: Performed By: #### C BC, HEPATIC, BMP, LIPASE #### [address] Lymphocytes (Bld) [#/Vol] 2.0 10*3/uL Normal 1.00-4.8 [facility] Comment on above: Performed By: #### C BC, HEPATIC, BMP, LIPASE #### [place] [address] [place] Lymphocytes/100 WBC (Bld) 17.8 % Normal . [facility] Comment on above: Performed By: #### C BC, HEPATIC, BMP, LIPASE #### [address] MCH (RBC) [Entitic mass] 30.2 pg Normal 24.7-34.3 [facility] Comment on above: Performed By: #### C BC, HEPATIC, BMP, LIPASE #### [address] MCV (RBC) [Entitic vol] 92.4 fL Normal 80-100 [facility] Comment on above: Performed By: #### C BC, HEPATIC, BMP, LIPASE #### [address] Mean Corpuscular HGB Conc 32.7 g/dL Normal 32.0-35.0 [facility] Comment on above: Performed By: #### C BC, HEPATIC, BMP, LIPASE #### [address] Monocytes (Bld) [#/Vol] 0.6 10*3/uL Normal 0.0-0.8 [facility] Comment on above: Performed By: #### C BC, HEPATIC, BMP, LIPASE #### [address] [address] Monocytes/100 WBC (Bld) 15.46 % Normal 0.00-20.00 [facility] Comment on above: Performed By: #### C BC, HEPATIC, BMP, LIPASE #### [address] Monocytes/100 WBC (Bld) 5.0 % Normal . [facility] Comment on above: Performed By: #### C BC, HEPATIC, BMP, LIPASE #### [address] Neutrophils (Bld) [#/Vol] 8.4 10*3/uL High 1.8-7.7 [facility] Comment on above: Performed By: #### C BC, HEPATIC, BMP, LIPASE #### [address] Neutrophils/100 WBC (Bld) 74.6 % Normal . [facility] Comment on above: Performed By: #### C BC, HEPATIC, BMP, LIPASE #### [address] NRBC% 0.0 /100{WBC} Normal 0-0.5 [facility] Comment on above: Performed By: #### C BC, HEPATIC, BMP, LIPASE #### [address] Platelet mean volume (Bld) [Entitic vol] 9.2 fL Normal 6.3-10.7 [facility] Comment on above: Performed By: #### C BC, HEPATIC, BMP, LIPASE #### [address] Platelets (Bld) [#/Vol] 321 10*3/uL Normal 150-450 [facility] Comment on above: Performed By: #### C BC, HEPATIC, BMP, LIPASE #### [address] RBC (Bld) [#/Vol] 4.03 10*6/uL Normal 3.60-5.00 [facility] Comment on above: Performed By: #### C BC, HEPATIC, BMP, LIPASE #### [address] WBC (Bld) [#/Vol] 11.3 10*3/uL Normal 3.8-11.6 [facility] Comment on above: Performed By: #### C BC, HEPATIC, BMP, LIPASE #### [address] Creatinine [Mass/volume] in Serum or PlasmaOrdered By: Yoli Norris on 08-15-2023 Creatinine [Mass/Vol] 0.76 mg/dL 0.60-1.20 [facility] Eosinophils Auto (Bld) [#/Vo l]Ordered By: Yoli Norris on 08-15-2023 Eosinophils (Bld) [#/Vol] 0.2 10*3/uL 0.0-0.45 [facility] Eosinophils/100 WBC Auto (Bl d)Ordered By: Yoli Norris on 08-15-2023 Eosinophils/100 WBC (Bld) 2.1 % . [facility] Erythrocyte distribution wid th Auto (RBC) [Ratio]Ordered By: Yoli Norris on 08-15-2023 Erythrocyte distribution width (RBC) [Ratio] 15.1 % 11.9-15.3 [facility] Globulin Calc (S) [Mass/Vol] Ordered By: Yoli Norris on 08-15-2023 Globulin (S) [Mass/Vol] 3.2 g/dL [facility] Glucose [Mass/volume] in Ser um or PlasmaOrdered By: Yoli Norris on 08-15-2023 Glucose [Mass/Vol] 85 mg/dL 70-100 [facility] Comment on above: ADA recommended refe rence rangeRandom Glucose Reference Range is dependent on time and content of last meal. Glucose of more than 200 mg/dL in a nonstressed, ambulatory subject supports the diagnosis of Diabetes Mellitus. HCG ( test) IA.rapi d Ql (U)Ordered By: Yoli Norris on 08-15-2023 HCG ( test) Ql (U) Negative [facility] HCG,Urineon 08-15-2023 Beta HCG ( test) Ql (U) Negative Normal [facility] Comment on above: Order Comment: Name Collection Type:: Clean-Voided Midstream Result Comment: PERF ORMED BY: [place] [address] PATHOLOGIST MATTE CUTTER JOHNIE BOSS M.D. Performed By: #### U HCG, UA #### [address] Hematocrit Auto (Bld) [Volum e fraction]Ordered By: Yoli Norris on 08-15-2023 Hematocrit (Bld) [Volume fraction] 37.2 % 34.0-46.4 [facility] Hemoglobin [Mass/volume] in BloodOrdered By: Yoli Norris on 08-15-2023 Hemoglobin (Bld) [Mass/Vol] 12.2 g/dL 11.8-15.4 [facility] Hepatic Panelon 08-15-2023 Albumin [Mass/Vol] 4.6 g/dL Normal 3.5-5.7 [facility] Comment on above: Performed By: #### C BC, HEPATIC, BMP, LIPASE #### [facility] [address] Albumin/Globulin [Mass ratio] 1.4 {ratio} Normal [facility] Comment on above: Performed By: #### C BC, HEPATIC, BMP, LIPASE #### [facility] [address] ALP [Catalytic activity/Vol] 77 U/L Normal 34-104 [facility] Comment on above: Performed By: #### C BC, HEPATIC, BMP, LIPASE #### [facility] [address] ALT [Catalytic activity/Vol] 18 U/L Normal 7-52 [facility] Comment on above: Performed By: #### C BC, HEPATIC, BMP, LIPASE #### [facility] [address] AST [Catalytic activity/Vol] 18 U/L Normal 13-39 [facility] Comment on above: Performed By: #### C BC, HEPATIC, BMP, LIPASE #### [facility] [address] Bilirubin [Mass/Vol] 0.3 mg/dL Normal 0.3-1.0 [facility] Comment on above: Performed By: #### C BC, HEPATIC, BMP, LIPASE #### [facility] [address] [place] [address] [place] Bilirubin,Indirect 0.3 mg/dL Normal [facility] Comment on above: Performed By: #### C BC, HEPATIC, BMP, LIPASE #### [facility] [address] Bilirubin.indirect [Mass/Vol] 0.00 mg/dL Low 0.03-0.18 [facility] Comment on above: Result Comment: If t he DBIL is less than 0.1, IBIL is not able to be calculated. Performed By: #### C BC, HEPATIC, BMP, LIPASE #### [facility] [address] Globulin (S) [Mass/Vol] 3.2 g/dL Normal [facility] Comment on above: Performed By: #### C BC, HEPATIC, BMP, LIPASE #### [facility] [address] Protein [Mass/Vol] 7.8 g/dL Normal 6.4-8.9 [facility] Comment on above: Performed By: #### C BC, HEPATIC, BMP, LIPASE #### [facility] [address] Ketones Auto test strip (U) [Mass/Vol]Ordered By: Yoli Norris on 08-15-2023 Ketones (U) [Mass/Vol] Negative Negative Fi [facility] Leukocytes [#/volume] correc caitlin for nucleated erythrocytes in Blood by Automated counOrdered By: Yoli Norris on 08-15-2023 WBC corrected for nucl RBC Auto (Bld) [#/Vol] 11.3 10*3/uL 3.8-11.6 [facility] Lipaseon 08-15-2023 Lipase [Catalytic activity/Vol] 32.0 U/L Normal 11.0-82.0 [facility] Comment on above: Result Comment: PERF ORMED BY: [place] [address] PATHOLOGIST MATTE CUTTER JOHNIE BOSS M.D. Performed By: #### C BC, HEPATIC, BMP, LIPASE #### [facility] [address] Lipase [Enzymatic activity/v olume] in Serum or PlasmaOrdered By: Yoli Norris on 08-15-2023 Lipase [Catalytic activity/Vol] 32.0 U/L 11.0-82.0 [facility] Lymphocytes Auto (Bld) [#/Vo l]Ordered By: Yoli Norris on 08-15-2023 Lymphocytes (Bld) [#/Vol] 2.0 10*3/uL 1.00-4.8 [facility] Lymphocytes/100 WBC Auto (Bl d)Ordered By: Yoli Norris on 08-15-2023 Lymphocytes/100 WBC (Bld) 17.8 % . [facility] MCH Auto (RBC) [Entitic mass ]Ordered By: Yoli Norris on 08-15-2023 MCH (RBC) [Entitic mass] 30.2 pg 24.7-34.3 [facility] MCHC Auto (RBC) [Mass/Vol]Or dered By: Yoli Norris on 08-15-2023 MCHC (RBC) [Mass/Vol] 32.7 g/dL 32.0-35.0 Fir [facility] MCV Auto (RBC) [Entitic vol] Ordered By: Yoli Norris on 08-15-2023 MCV (RBC) [Entitic vol] 92.4 fL 80-100 [facility] Monocyte distribution width [Entitic volume] in Blood by AutomatedOrdered By: Yoli Norris on 08-15-2023 Monocyte distribution width Auto (Bld) [Entitic vol] 15.46 % 0.00-20.00 [facility] Monocytes Auto (Bld) [#/Vol] Ordered By: Yoli Norris on 08-15-2023 Monocytes (Bld) [#/Vol] 0.6 10*3/uL 0.0-0.8 [facility] Monocytes/100 WBC Auto (Bld) Ordered By: Yoli Norris on 08-15-2023 Monocytes/100 WBC (Bld) 5.0 % . [facility] Neutrophils Auto (Bld) [#/Vo l]Ordered By: Yoli Norris on 08-15-2023 Neutrophils (Bld) [#/Vol] 8.4 10*3/uL 1.8-7.7 [facility] Neutrophils/100 WBC Auto (Bl d)Ordered By: Yoli Norris on 08-15-2023 Neutrophils/100 WBC (Bld) 74.6 % . [facility] Nitrite Test strip Ql (U)Ord ered By: Yoli Norris on 08-15-2023 Nitrite Ql (U) Negative Negative [facility] No Panel InformationOrdered By: Yoli Norris on 08-15-2023 Estimated GFR (CKD-EPI) > 60.0 mL/Min [facility] Creatinine Clearance (Chem 117.62 [facility] Nucleated erythrocytes [Pres ence] in Blood by Automated countOrdered By: Yoli Norris on 08-15-2023 Nucleated RBC Auto Ql (Bld) 0.0 /100{WBC} 0-0.5 [facility] Platelet mean volume Auto (B ld) [Entitic vol]Ordered By: Yoli Norris on 08-15-2023 Platelet mean volume (Bld) [Entitic vol] 9.2 fL 6.3-10.7 [facility] Platelets Auto (Bld) [#/Vol] Ordered By: Yoli Norris on 08-15-2023 Platelets (Bld) [#/Vol] 321 10*3/uL 150-450 [facility] Potassium [Moles/volume] in Serum or PlasmaOrdered By: Yoli Norris on 08-15-2023 Potassium [Moles/Vol] 3.5 mmol/L 3.5-5.1 [facility] Protein Auto test strip (U) [Mass/Vol]Ordered By: Yoli Norris on 08-15-2023 Protein (U) [Mass/Vol] Negative Negative [facility] Protein [Mass/volume] in Ser um or PlasmaOrdered By: Yoli Norris on 08-15-2023 Protein [Mass/Vol] 7.8 g/dL 6.4-8.9 [facility] RBC Auto (Bld) [#/Vol]Ordere d By: Yoli Norris on 08-15-2023 RBC (Bld) [#/Vol] 4.03 10*6/uL 3.60-5.00 [facility] Serum or plasma albumin/glob ulin mass ratioOrdered By: Yoli Norris on 08-15-2023 Albumin/Globulin [Mass ratio] 1.4 {ratio} [facility] Serum or plasma anion gap de terminationOrdered By: Yoli Norris on 08-15-2023 Anion gap [Moles/Vol] 12.7 mmol/L 6.0-15.0 [facility] Serum or plasma non-glucuron idated bilirubin measurement (mass/volume)Ordered By: Yoli Norris on 08-15-2023 Bilirubin.indirect [Mass/Vol] 0.3 mg/dL [facility] Sodium [Moles/volume] in Ser um or PlasmaOrdered By: Yoli Norris on 08-15-2023 Sodium [Moles/Vol] 140 mmol/L 136-145 [facility] Specific gravity Auto test s trip (U) [Rel density]Ordered By: Yoli Norris on 08-15-2023 Specific gravity (U) [Rel density] 1.007 1.001-1.030 [facility] Urea nitrogen [Mass/volume] in Serum or PlasmaOrdered By: Yoli Norris on 08-15-2023 Urea nitrogen [Mass/Vol] 11 mg/dL 7 [facility] Urinalysison 08-15-2023 Appearance (U) Clear Normal Clear [facility] Comment on above: Order Comment: Name Collection Type:: Clean-Voided Midstream Performed By: #### U HCG, UA #### [facility] [address] [place] [address] [place] Bilirubin,Urine Negative Normal Negative [facility] Comment on above: Order Comment: Name Collection Type:: Clean-Voided Midstream Performed By: #### U HCG, UA #### [facility] [address] [place] [address] [place] Color (U) Yellow Normal Yellow [facility] Comment on above: Order Comment: Name Collection Type:: Clean-Voided Midstream Performed By: #### U HCG, UA #### [facility] [address] [place] [address] [place] Glucose Ql (U) Normal Normal Normal [facility] Comment on above: Order Comment: Name Collection Type:: Clean-Voided Midstream Performed By: #### U HCG, UA #### [facility] [address] [place] [address] [place] Ketones Ql (U) Negative Normal Negative [facility] Comment on above: Order Comment: Name Collection Type:: Clean-Voided Midstream Performed By: #### U HCG, UA #### [facility] [address] [place] [address] [place] Leukocyte esterase Test strip Ql (U) Negative Normal Negative [facility] Comment on above: Order Comment: Name Collection Type:: Clean-Voided Midstream Performed By: #### U HCG, UA #### [facility] [address] [place] [address] [place] Nitrite,Urine Negative Normal Negative [facility] Comment on above: Order Comment: Name Collection Type:: Clean-Voided Midstream Performed By: #### U HCG, UA #### [place] [address] [place] Occult Blood,Urine Negative Normal Negative [facility] Comment on above: Order Comment: Name Collection Type:: Clean-Voided Midstream Performed By: #### U HCG, UA #### [address] pH (U) 8.0 [pH] Normal 5.0-9.0 [facility] Comment on above: Order Comment: Name Collection Type:: Clean-Voided Midstream Performed By: #### U HCG, UA #### [place] [address] [place] Protein,Urine Negative Normal Negative [facility] Comment on above: Order Comment: Name Collection Type:: Clean-Voided Midstream Performed By: #### U HCG, UA #### [address] Specificy [place],Urine 1.007 Normal 1.001-1.030 [facility] Comment on above: Order Comment: Name Collection Type:: Clean-Voided Midstream Performed By: #### U HCG, UA #### [facility] [address] [place] [address] [place] Urobilinogen,Urine Normal Normal Normal [facility] Comment on above: Order Comment: Name Collection Type:: Clean-Voided Midstream Performed By: #### U HCG, UA #### [facility] [address] [place] [address] [place] Urine clarity by refractomet ry automatedOrdered By: Yoli Norris on 08-15-2023 Clarity Refractometry automated (U) Clear Clear [facility] Urine glucose measurement by automated test strip (mass/volume)Ordered By: Yoli Norris on 08-15-2023 Glucose Auto test strip (U) [Mass/Vol] Normal mg/dL Normal [facility] Urine hemoglobin detection b y automated test stripOrdered By: Yoli Norris on 08-15-2023 Hemoglobin Auto test strip Ql (U) Negative Negative [facility] Urine leukocyte esterase det ection by automated test stripOrdered By: Yoli Norris on 08-15-2023 Leukocyte esterase Auto test strip Ql (U) Negative Negative [facility] Urobilinogen Auto test strip (U) [Mass/Vol]Ordered By: Yoli Norris on 08-15-2023 Urobilinogen (U) [Mass/Vol] Normal mg/dL Normal [facility] Vitamin B1on 08-15-2023 Vitamin B1 145 nmol/L Normal 70-180 [facility] Comment on above: Result Comment: (NOT E) INTERPRETIVE INFORMATION: Vitamin B1, Whole Blood This assay measures the concentration of thiamine diphosphate (TDP), the primary active form of vitamin B1. Approximately 90 percent of vitamin B1 present in whole blood is TDP. Thiamine and thiamine monophosphate, which comprise the remaining 10 percent, are not measured. This test was developed and its performance characteristics determined by [facility]. It has not been cleared or approved by the [place] Food and Drug Administration. This test was performed in a CLIA certified laboratory and is intended for clinical purposes. Performed By: [facility] [address] [place] [address] Licensed Sales Producer: Osmar Salcido MD, PhD CLIA Number: [id number] Performed By: #### P BAILEY, FEBC, FERI, GLYHGB, VD25 #### [id number] [place] [address] Soap Drier Operator: Harpal Adair MD #### AGNES OLIVO, AZN #### [email or web address] [address] [place] [address] Soap Drier Operator: Patricio Zuñiga MD #### ANGEL, MG, CDP #### [facility] [address] [place] [address] Soap Drier Operator: Hilton Armenta MD WBC Auto (Bld) [#/Vol]Ordere d By: Yoli Norris on 08-15-2023 WBC (Bld) [#/Vol] 11.3 10*3/uL 3.8-11.6 [facility] pH Auto test strip (U)Ordere d By: Yoli Norris on 08-15-2023 pH (U) 8.0 [pH] 5.0-9.0 [facility] Zinc, Serumon 08-14-2023 Zinc, Serum 95.3 ug/dL Normal 60.0-120.0 [facility] Comment on above: Result Comment: (NOT E) INTERPRETIVE INFORMATION: Zinc, Serum or Plasma Elevated results may be due to skin or collection-related contamination, including the use of a noncertified metal-free collection/transport tube. If contamination concerns exist due to elevated levels of serum/plasma zinc, confirmation with a second specimen collected in a certified metal-free tube is recommended. Circulating zinc concentrations are dependent on albumin status and are depressed with malnutrition. Zinc may also be lowered with infection, inflammation, stress, oral contraceptives, and . Zinc may be elevated with zinc supplementation or fasting. Elevated zinc concentrations may interfere with copper absorption. This test was developed and its performance characteristics determined by [facility]. It has not been cleared or approved by the [place] Food and Drug Administration. This test was performed in a CLIA certified laboratory and is intended for clinical purposes. Performed By: [facility] [address] [place] [address] Licensed Sales Producer: Osmar Salcido MD, PhD CLIA Number: [id number] Performed By: #### P ALFONSO AVALOS, ARNOLDO, GLYHGB, VD25 #### [facility] [id number] [place] [address] Soap Drier Operator: Harpal Adair MD #### TYREE OLIVO1, AZN #### [facility] [address] [place] [address] Soap Drier Operator: Patricio Zuñiga MD #### CP, MG, CDP #### [facility] [address] [address] Soap Drier Operator: Hilton Armenta MD B12/Folate Panelon Folic Acid >20.0 Normal >4.8 [facility] Comment on above: Performed By: #### P THNCA, FEBC, FERI, GLYHGB, VD25 #### [facility] [address] [place] [address] Soap Drier Operator: Harpal Adair MD #### AGNES OLIVO, AZN #### [facility] [address] [place], [place] [id number] Soap Drier Operator: Patricio Zuñiga MD #### MG ANGEL, CDP #### [address] [place], [place] [id number] Soap Drier Operator: Hilton Armenta MD Cobalamin (Vitamin B12) [Mass/Vol] 632 pg/mL Normal 232-1245 [facility] Comment on above: Performed By: #### P THNCA, FEBC, FERI, GLYHGB, VD25 #### [address] [address] Soap Drier Operator: Harpal Adair MD #### AGNES OLIVO, AZN #### [facility] [address] [place] [address] Soap Drier Operator: Patricio Zuñiga MD #### MG ANGEL, CDP #### [address] [place] [address] Soap Drier Operator: Hilton Armenta MD CBC with Diffon 08-12-2023 Abs. Basophil 0.06 k/uL Normal 0.00-0.20 [facility] Comment on above: Performed By: #### P THNCA, FEBC, FERI, GLYHGB, VD25 #### [facility] [address] [place] [address] Soap Drier Operator: Harpal Adair MD #### AGNES OLIVO, AZN #### [facility] [address] [place], [place] [id number] Soap Drier Operator: Patricio Zuñiga MD #### MG ANGEL, CDP #### [address] [place] [id number] Soap Drier Operator: Hilton Armenta MD Abs.Imm.Granulocyte 0.03 k/uL Normal 0.00-0.30 [facility] Comment on above: Performed By: #### P THNCA, FEBC, FERI, GLYHGB, VD25 #### [address] [id number] Soap Drier Operator: Harpal Adair MD #### AGNES OLIVO, AZN #### [facility] [address] [place], [place] [id number] Soap Drier Operator: Patricio Zuñiga MD #### MG ANGEL, CDP #### [address] [place] [id number] Soap Drier Operator: Hilton Armenta MD Abs.Neutrophil (Seg) 6.33 k/uL Normal 1.50-8.[address] [facility] Comment on above: Performed By: #### P DENNISA, FEBC, FERI, GLYHGB, VD25 #### [address] [address] Soap Drier Operator: Harpal Adair MD #### AGNES OLIVO, AZN #### [facility] [address] [place], [place] [id number] Soap Drier Operator: Patricio Zuñiga MD #### MG ANGEL, CDP #### [address] [place] [id number] Soap Drier Operator: Hilton Armenta MD Basophils/100 WBC (Bld) 1 % Normal 0-2 [facility] Comment on above: Performed By: #### P THNCA, FEBC, FERI, GLYHGB, VD25 #### [address] [address] Soap Drier Operator: Harpal Adair MD #### AVITAS, AVITB1, AZN #### [facility] [address] [place] [address] Soap Drier Operator: Patricio Zuñiga MD #### ANGEL MG, CDP #### [address] [place], [place] [id number] Soap Drier Operator: Hilton Armenta MD Eosinophils (Bld) [#/Vol] 0.43 10*3/uL Normal 0.00-0.44 [facility] Comment on above: Performed By: #### P THNCA, FEBC, FERI, GLYHGB, VD25 #### [address] [id number] Soap Drier Operator: Harpal Adair MD #### AGNES OLIVO, AZN #### [facility] [address] [place], [place] [id number] Soap Drier Operator: Patricio Zuñiga MD #### MG ANGEL, CDP #### [address] [place] [address] Soap Drier Operator: Hilton Armenta MD Eosinophils/100 WBC (Bld) 5 % High 1-4 [facility] Comment on above: Performed By: #### P THNCA, FEBC, FERI, GLYHGB, VD25 #### [address] [id number] Soap Drier Operator: Harpal Adair MD #### AGNES OLIVO, AZN #### [facility] [address] [place] [address] Soap Drier Operator: Patricio Zuñiga MD #### ANGEL MG, CDP #### [address] [place] [address] Soap Drier Operator: Hilton Armenta MD Erythrocyte distribution width (RBC) [Ratio] 14.9 % High 11.8-14.4 [facility] Comment on above: Performed By: #### P THNCA, FEBC, FERI, GLYHGB, VD25 #### [address] [place] [address] Soap Drier Operator: Harpal Adair MD #### AGNES OLIVO, AZN #### [facility] [address] [place], [place] [id number] Soap Drier Operator: Particio Zuñiga MD #### MG ANGEL, CDP #### [address] [place], [place] [id number] Soap Drier Operator: Hilton Armenta MD Hematocrit (Bld) [Volume fraction] 38.0 % Normal 36.3-47.1 [facility] Comment on above: Performed By: #### P THNCA, FEBC, FERI, GLYHGB, VD25 #### [address] [id number] Soap Drier Operator: Harpal Adair MD #### AGNES OLIVO, AZN #### [facility] [address] [place] [address] Soap Drier Operator: Patricio Zuñiga MD #### MG ANGEL, CDP #### [address] [place] [address] Soap Drier Operator: Hilton Armenta MD Hemoglobin (Bld) [Mass/Vol] 12.2 g/dL Normal 11.9-15.1 [facility] Comment on above: Performed By: #### P THNCA, FEBC, FERI, GLYHGB, VD25 #### [address] [id number] Soap Drier Operator: Harpal Adair MD #### AGNES OLIVO, AZN #### [facility] [address] [place], [place] [id number] Soap Drier Operator: Patricio Zuñiga MD #### MG ANGEL, CDP #### [address] [place] [id number] Soap Drier Operator: Hilton Armenta MD Immature granulocytes/100 WBC (Bld) 0 % Normal 0 [facility] Comment on above: Performed By: #### P THNCA, FEBC, FERI, GLYHGB, VD25 #### [address] [address] Soap Drier Operator: Harpal Adair MD #### AGNES OLIVO, AZN #### [facility] [address] [place] [address] Soap Drier Operator: Patricio Zuñiga MD #### MG ANGEL, CDP #### [address] [place] [id number] Soap Drier Operator: Hilton Armenta MD Lymphocytes (Bld) [#/Vol] 1.90 10*3/uL Normal 1.10-3.70 [facility] Comment on above: Performed By: #### P THNCA, FEBC, FERI, GLYHGB, VD25 #### [address] [address] Soap Drier Operator: Harpal Adair MD #### AGNES OLIVO, AZN #### [facility] [address] [place], [place] [id number] Soap Drier Operator: Patricio Zuñiga MD #### ANGEL MG, CDP #### [address] [place] [id number] Soap Drier Operator: Hilton Armenta MD Lymphocytes/100 WBC (Bld) 20 % Low 24-43 [facility] Comment on above: Performed By: #### P THNCA, FEBC, FERI, GLYHGB, VD25 #### [facility] [address] [place] [address] Soap Drier Operator: Harpal Adair MD #### AGNES OLIVO, AZN #### [facility] [address] [place] [address] Soap Drier Operator: Patricio Zuñiga MD #### MG ANGEL, CDP #### [address] [place] [address] Soap Drier Operator: Hilton Armenta MD MCH (RBC) [Entitic mass] 29.9 pg Normal 25.2-33.5 [facility] Comment on above: Performed By: #### P BAILEY, FECHRIS, FERI, GLYHGB, VD25 #### [address] [place], [place] [id number] Soap Drier Operator: Harpal Adair MD #### AGNES OLIVO, AZN #### [facility] [address] [place] [address] Soap Drier Operator: Patricio Zuñiga MD #### MG ANGEL, CDP #### [address] [place] [phone] Soap Drier Operator: Hilton Armenta MD MCHC (RBC) [Mass/Vol] 32.1 g/dL Normal 28.4-34.8 [facility] Comment on above: Performed By: #### Kina AVALOS, ALFONSO, FERI, GLYHGB, VD25 #### [address] [id number] Soap Drier Operator: Harpal Adair MD #### AGNES OLIVO, AZN #### [facility] [address] [place] [address] Soap Drier Operator: Patricio Zuñiga MD #### MG ANGEL, CDP #### [address] [place] [address] Soap Drier Operator: Hilton Armenta MD MCV (RBC) [Entitic vol] 93.1 fL Normal 82.6-102.9 [facility] Comment on above: Performed By: #### P THNCA, FEBC, FERI, GLYHGB, VD25 #### [facility] [address] [place] [address] Soap Drier Operator: Harpal Adair MD #### AGNES OLIVO, AZN #### [facility] [address] [place] [address] Soap Drier Operator: Patricio Zuñiga MD #### ANGEL, MG, CDP #### [address] [place], [place] [id number] Soap Drier Operator: Hilton Armenta MD Monocytes (Bld) [#/Vol] 0.70 10*3/uL Normal 0.10-1.20 [facility] Comment on above: Performed By: #### P THNCA, FEBC, FERI, GLYHGB, VD25 #### [address] [address] Soap Drier Operator: Harpal Adair MD #### AGNES OLIVO, AZN #### [facility] [address] [place], [place] [id number] Soap Drier Operator: Patricio Zuñiga MD #### MG ANGEL, CDP #### [address] [place] [address] Soap Drier Operator: Hilton Armenta MD Monocytes/100 WBC (Bld) 7 % Normal 3-12 [facility] Comment on above: Performed By: #### P THNCA, FEBC, FERI, GLYHGB, VD25 #### [address] [address] Soap Drier Operator: Harpal Adair MD #### AGNES OLIVO, AZN #### [facility] [address] [place], [place] [id number] Soap Drier Operator: Patricio Zuñiga MD #### ANGEL, MG, CDP #### [address] [place] [address] Soap Drier Operator: Hilton Armenta MD Neutrophil (Seg) 67 % High 36-65 [facility] Comment on above: Performed By: #### P THNCA, FEBC, FERI, GLYHGB, VD25 #### [address] [place], [place] [id number] Soap Drier Operator: Harpal Adair MD #### AGNES OLIVO, AZN #### [facility] [address] [place], [place] [id number] Soap Drier Operator: Patricio Zuñiga MD #### MG ANGEL, CDP #### [address] [place] [address] Soap Drier Operator: Hilton Armenta MD NRBC Automated 0.0 per 100 WBC Normal 0.0 [facility] Comment on above: Performed By: #### P DENNISA, FEBC, FERI, GLYHGB, VD25 #### [address] [id number] Soap Drier Operator: Harpal Adair MD #### AGNES OLIVO, AZN #### [facility] [address] [place], [place] [id number] Soap Drier Operator: Patricio Zuñiga MD #### ANGEL MG, CDP #### [facility] [address] [place] [address] [place] [address] Soap Drier Operator: Hilton Armenta MD Platelet mean volume (Bld) [Entitic vol] 10.6 fL Normal 8.1-13.5 [facility] Comment on above: Performed By: #### P THNCA, FEBC, FERI, GLYHGB, VD25 #### [facility] [address] [place] [address] Soap Drier Operator: Harpal Adair MD #### AGNES OLIVO, AZN #### [facility] [address] [place] [address] Soap Drier Operator: Patricio Zuñiga MD #### CP, MG, CDP #### [address] [place], [place] [id number] Soap Drier Operator: Hilton Armenta MD Platelets (Bld) [#/Vol] 355 10*3/uL Normal 138-453 [facility] Comment on above: Performed By: #### P THNCA, FEBC, FERI, GLYHGB, VD25 #### [facility] [place] [address] Soap Drier Operator: Harpal Adair MD #### AGNES OLIVO, AZN #### [facility] [address] [place] [address] Soap Drier Operator: Patricio Zuñiga MD #### MG ANGEL, CDP #### [address] [place] [id number] Soap Drier Operator: Hilton Armenta MD RBC (Bld) [#/Vol] 4.08 10*6/uL Normal 3.95-5.11 [facility] Comment on above: Performed By: #### P THNCA, FEBC, FERI, GLYHGB, VD25 #### [address] [address] Soap Drier Operator: Harpal Adair MD #### AGNES OLIVO, AZN #### [facility] [address] [place] [address] Soap Drier Operator: Patricio Zuñiga MD #### ANGEL MG, CDP #### [address] [place], [place] 660[address]83 Soap Drier Operator: Hilton Armenta MD WBC (Bld) [#/Vol] 9.5 10*3/uL Normal 3.5-11.3 [facility] Comment on above: Performed By: #### P THNCA, FEBC, FERI, GLYHGB, VD25 #### [facility] [address] [place] [address] Soap Drier Operator: Harpal Adair MD #### AGNES OLIVO, AZN #### [facility] [address] [place], [place] [id number] Soap Drier Operator: Patricio Zuñiga MD #### ANGEL MG, CDP #### [address] [place] [address] Soap Drier Operator: Hilton Armenta MD Comp Metabolic Profon 2022 Albumin [Mass/Vol] 4.5 g/dL Normal 3.5-5.2 [facility] Comment on above: Performed By: #### P THNCA, FEBC, FERI, GLYHGB, VD25 #### [address] [address] Soap Drier Operator: Harpal Adair MD #### AGNES OLIVO, AZN #### [facility] [address] [place], [place] [id number] Soap Drier Operator: Patricio Zuñiga MD #### MG ANGEL, CDP #### [address] [place] [address] Soap Drier Operator: Hilton Armenta MD Albumin/Glob Ratio 1.6 Normal 1.0-2.5 [facility] Comment on above: Performed By: #### P THNCA, FEBC, FERI, GLYHGB, VD25 #### [facility] [address] [place] [address] Soap Drier Operator: Harpal Adair MD #### AGNES OLIVO, AZN #### [facility] [address] [place], [place] [id number] Soap Drier Operator: Patricio Zuñiga MD #### ANGEL MG, CDP #### [address] [place] [address] Soap Drier Operator: Hilton Armenta MD Alkaline Phos 85 U/L Normal 35-104 [facility] Comment on above: Performed By: #### P THNCA, FEBC, FERI, GLYHGB, VD25 #### [address] [address] Soap Drier Operator: Harpal Adair MD #### AGNES OLIVO, AZN #### [facility] [address] [place], [place] [id number] Soap Drier Operator: Patricio Zuñiga MD #### MG ANGEL, CDP #### [address] [place] [address] Soap Drier Operator: Hilton Armenta MD ALT [Catalytic activity/Vol] 21 U/L Normal 5-33 [facility] Comment on above: Performed By: #### P BAILEY, FECHRIS, FERI, GLYHGB, VD25 #### [address] [address] Soap Drier Operator: Harpal Adair MD #### AGNES OLIVO, AZN #### [facility] [address] [place], [place] [id number] Soap Drier Operator: Patricio Zuñiga MD #### MG ANGEL, CDP #### [facility] [address] [place], [place] [phone] Soap Drier Operator: Hilton Armenta MD Anion gap [Moles/Vol] 11 mmol/L Normal 9-17 [facility] Comment on above: Performed By: #### P THNCA, FEBC, FERI, GLYHGB, VD25 #### [address] [address] Soap Drier Operator: Harpal Adair MD #### AGNES OLIVO, AZN #### [facility] [address] [place] [address] Soap Drier Operator: Patricio Zuñiga MD #### CP, MG, CDP #### [facility] [address] [place] [address] [place] [address] Soap Drier Operator: Hilton Armenta MD AST [Catalytic activity/Vol] 22 U/L Normal <32 [facility] Comment on above: Performed By: #### P THNCA, FEBC, FERI, GLYHGB, VD25 #### [facility] [address] [place] [address] Soap Drier Operator: Harpal Adair MD #### AGNES OLIVO, AZN #### [facility] [address] [place] [address] Soap Drier Operator: Patricio Zuñiga MD #### ANGEL, MG, CDP #### [facility] [address] [place] [address] [place] [address] Soap Drier Operator: Hilton Armenta MD Bilirubin [Mass/Vol] 0.2 mg/dL Low 0.3-1.[address] [facility] Comment on above: Performed By: #### P DENNISA, FEBC, FERI, GLYHGB, VD25 #### [facility] [address] [place] [address] Soap Drier Operator: Harpal Adair MD #### AGNES OLIVO, AZN #### [facility] [address] [place] [address] Soap Drier Operator: Patricio Zuñiga MD #### CP, MG, CDP #### [address] [place] [address] Soap Drier Operator: Hiltno Armenta MD BUN/CRE Ratio 20 Normal 9-20 [facility] Comment on above: Performed By: #### P THNCA, FEBC, FERI, GLYHGB, VD25 #### [facility] [address] [place] [address] [id number] Soap Drier Operator: Harpal Adair MD #### ARIAN OLIVOTB1, AZN #### [facility] [address] [place], [place] [id number] Soap Drier Operator: Patricio Zuñiga MD #### CP, MG, CDP #### [facility] [address] [place], [place] [phone] Soap Drier Operator: Hilton Armenta MD Calcium [Mass/Vol] 9.9 mg/dL Normal 8.6-10.4 [facility] Comment on above: Performed By: #### P DENNISA, FEBC, FERI, GLYHGB, VD25 #### [address] [id number] Soap Drier Operator: Harpal Adair MD #### ARIAN OLIVOTB1, AZN #### [facility] [address] [place], [place] [id number] Soap Drier Operator: Patricio Zuñiga MD #### ANGEL, MG, CDP #### [facility] [address] [place] [address] Soap Drier Operator: Hilton Armenta MD Chloride [Moles/Vol] 107 mmol/L Normal 98-[address] [facility] Comment on above: Performed By: #### P THNCA, FEBC, FERI, GLYHGB, VD25 #### [address] [id number] Soap Drier Operator: Harpal Adair MD #### ARIAN OLIVOTB1, AZN #### [facility] [address] [place], [place] [id number] Soap Drier Operator: Patricio Zuñiga MD #### CP, MG, CDP #### [facility] [address] [place], [place] [phone] Soap Drier Operator: Hilton Armenta MD CO2 [Moles/Vol] 23 mmol/L Normal 20-31 [facility] Comment on above: Performed By: #### P DENNISA, FECHRIS, FERI, GLYHGB, VD25 #### [address] [place] [address] Soap Drier Operator: Harpal Adair MD #### AGNES OLIVO, AZN #### [facility] [address] [place], [place] [id number] Soap Drier Operator: Patricio Zuñiga MD #### ANGEL, MG, CDP #### [facility] [address] [place] [address] [place], [place] [phone] Soap Drier Operator: Hilton Armenta MD Creatinine [Mass/Vol] 0.6 mg/dL Normal 0.5-0.9 [facility] Comment on above: Performed By: #### P BAILEY, ALFONSO, FERI, GLYHGB, VD25 #### [address] [address] Soap Drier Operator: Harpal Adair MD #### AGNES OLIVO, AZN #### [facility] [address] [place] [address] Soap Drier Operator: Patricio Zuñiga MD #### ANGEL, MG, CDP #### [address] [place] [address] Soap Drier Operator: Hilton Armenta MD GFR/1.73 sq M.predicted among non-blacks MDRD (S/P/Bld) [Vol rate/Area] mL/min/{1.73_m2} Normal >60 [facility] Comment on above: Result Comment: These results are not intended for use in patients <18 years of age. eGFR results are calculated without a race factor using the 2020 CKD-EPI equation. Careful clinical correlation is recommended, particularly when comparing to results calculated using previous equations. The CKD-EPI equation is less accurate in patients with extremes of muscle mass, extra-renal metabolism of creatine, excessive creatine ingestion, or following therapy that affects renal tubular secretion. Performed By: #### P THNCA, FECHRIS, FERI, GLYHGB, VD25 #### [facility] [place] [address] Soap Drier Operator: Harpal Adair MD #### AGNES OLIVO, AZN #### [facility] [address] [place] [address] Soap Drier Operator: Patricio Zuñiga MD #### MG ANGEL, CDP #### [address] [place], [place] 0772883 Soap Drier Operator: Hilton Armenta MD Glucose [Mass/Vol] 89 mg/dL Normal 70-99 [facility] Comment on above: Performed By: #### ALFONSO COSTA, FERI, GLYHGB, VD25 #### [address] [address] Soap Drier Operator: Harpal Adair MD #### AGNES OLIVO, AZN #### [facility] [address] [place] [address] Soap Drier Operator: Patricio Zuñiga MD #### MG ANGEL, CDP #### [address] [place], [place] [phone] Soap Drier Operator: Hilton Armenta MD Potassium [Moles/Vol] 4.3 mmol/L Normal 3.7-5.3 [facility] Comment on above: Performed By: #### ALFONSO COSTA, FERI, GLYHGB, VD25 #### [address] [address] Soap Drier Operator: Harpal Adair MD #### AGNES OLIVO, AZN #### [facility] [address] [place] [address] Soap Drier Operator: Patricio Zuñiga MD #### MG ANGEL, CDP #### [address] [place] [address] Soap Drier Operator: Hilton Armenta MD Protein [Mass/Vol] 7.4 g/dL Normal 6.4-8.3 [facility] Comment on above: Performed By: #### P THNCA, FEBC, FERI, GLYHGB, VD25 #### [address] [address] Soap Drier Operator: Harpal Adair MD #### AGNES OLIVO, AZN #### [facility] [address] [place] [address] Soap Drier Operator: Patricio Zuñiga MD #### MG ANGEL, CDP #### [address] [place] [address] Soap Drier Operator: Hilton Armenta MD Sodium [Moles/Vol] 141 mmol/L Normal 135-144 [facility] Comment on above: Performed By: #### Kina AVALOS, FECHRIS, FERI, GLYHGB, VD25 #### [address] [address] Soap Drier Operator: Harpal Adair MD #### AGNES OLIVO, AZN #### [facility] [address] [place], [place] [id number] Soap Drier Operator: Patricio Zuñiga MD #### MG ANGEL, CDP #### [address] [place], [place] [phone] Soap Drier Operator: Hilton Armenta MD Urea nitrogen [Mass/Vol] 12 mg/dL Normal 6-20 [facility] Comment on above: Performed By: #### P THNCA, FEBC, FERI, GLYHGB, VD25 #### [facility] [address] [place] [address] Soap Drier Operator: Harpal Adair MD #### AGNES OLIVO, AZN #### [facility] [address] [place], [place] [id number] Soap Drier Operator: Patricio Zuñiga MD #### CP, MG, CDP #### [facility] [address] [place] [address] [place] [address] Soap Drier Operator: Hilton Armenta MD Ferritinon 08-12-2023 Ferritin [Mass/Vol] 12 ng/mL Low 13-150 [facility] Comment on above: Performed By: #### P THNCA, FEBC, FERI, GLYHGB, VD25 #### [facility] [address] [place] [address] Soap Drier Operator: Harpal Adair MD #### ARIAN OLIVOTBCeli, AZN #### [facility] [address] [place] [address] Soap Drier Operator: Patricio Zuñiga MD #### ANGEL, MG, CDP #### [address] [place] [address] Soap Drier Operator: Hilton Armenta MD Hemoglobin A1Con 1 Glucose [Mass/Vol] 114 mg/dL Normal [facility] Comment on above: Result Comment: The ADA and AACC recommend providing the estimated average glucose result to permit better patient understanding of their HBA1c result. Performed By: #### P BAILEY, FEBC, FERI, GLYHGB, VD25 #### [facility] [place] [address] Soap Drier Operator: Harpal Adair MD #### ARIAN OLIVOTBCeli, AZN #### [facility] [address] [place] [address] Soap Drier Operator: Patricio Zuñiga MD #### CP, MG, CDP #### [facility] [address] [place] [address] [place] [address] Soap Drier Operator: Hilton Armenta MD HbA1c (Bld) [Mass fraction] 5.6 % Normal 4.0-6.0 [facility] Comment on above: Performed By: #### P THNCA, FEBC, FERI, GLYHGB, VD25 #### [address] [address] Soap Drier Operator: Harpal Adair MD #### AGNES OLIVO, AZN #### [facility] [address] [place] [address] Soap Drier Operator: Patricio Zuñiga MD #### ANGEL MG, CDP #### [address] [place] [address] Soap Drier Operator: Hilton Armenta MD Iron Binding Cap.on 08-12-20 23 % Fe Saturation 16 % Low 20-55 [facility] Comment on above: Performed By: #### P THNCA, FEBC, FERI, GLYHGB, VD25 #### [address] [address] Soap Drier Operator: Harpal Adair MD #### AGNES OLIVO, AZN #### [facility] [address] [place], [place] [id number] Soap Drier Operator: Patricio Zuñiga MD #### MG ANGEL, CDP #### [address] [place] [address] Soap Drier Operator: Hilton Armenta MD Iron [Mass/Vol] 57 ug/dL Normal 37-145 [facility] Comment on above: Performed By: #### P THNCA, FEBC, FERI, GLYHGB, VD25 #### [address] [address] Soap Drier Operator: Harpal Adair MD #### AGNES OLIVO, AZN #### [facility] [address] [place] [address] Soap Drier Operator: Patricio Zuñiga MD #### ANGEL MG, CDP #### [address] [place], [place] 0002583 Soap Drier Operator: Hilton Armenta MD Total Fe Binding Cap 354 ug/dL Normal 250-[address] [facility] Comment on above: Performed By: #### P THNCA, FEBC, FERI, GLYHGB, VD25 #### [address] [id number] Soap Drier Operator: Harpal Adair MD #### AGNSE OLIVO, AZN #### [facility] [address] [place], [place] [id number] Soap Drier Operator: Patricio Zuñiga MD #### ANGEL MG, CDP #### [facility] [address] [place] [address] [place] [address] Soap Drier Operator: Hilton Armenta MD Unbound Fe Bind Cap 297 ug/dL Normal 112-347 [facility] Comment on above: Performed By: #### P GINCA, FEBC, FERI, GLYHGB, VD25 #### [address] [id number] Soap Drier Operator: Harpal Adair MD #### AGNES OLIVO, AZN #### [facility] [address] [place], [place] [id number] Soap Drier Operator: Patricio Zuñiga MD #### CP, MG, CDP #### [facility] [address] [place] [address] [place] [address] Soap Drier Operator: Hilton Armenta MD Lipid Profileon 08-12-2023 Cholesterol [Mass/Vol] 153 mg/dL Normal <200 [facility] Comment on above: Result Comment: Cholesterol Guidelines: <200 Desirable 200-240 Borderline >240 Undesirable Performed By: #### L IPR #### [address] [address] Soap Drier Operator: Harpal Adair MD Cholesterol in HDL [Mass/Vol] 68 mg/dL Normal >40 [facility] Comment on above: Result Comment: HDL Guidelines: <40 Undesirable 40-59 Borderline >59 Desirable Performed By: #### L IPR #### [facility] [address] [place] [address] Soap Drier Operator: Harpal Adair MD Cholesterol in LDL [Mass/Vol] 77 mg/dL Normal 0-130 [facility] Comment on above: Result Comment: LDL Guidelines: <100 Desirable 100-129 Near to/above Desirable 130-159 Borderline >159 Undesirable Direct (measured) LDL and calculated LDL are not interchangeable tests. Performed By: #### L IPR #### [facility] [address] [place] [address] Soap Drier Operator: Harpal Adair MD Cholesterol.total/Dawn sterol in HDL [Mass ratio] 2.3 {ratio} Normal <5 [facility] Comment on above: Performed By: #### L IPR #### [facility] [address] [place] [address] Soap Drier Operator: Harpal Adair MD Triglyceride [Mass/Vol] 39 mg/dL Normal <150 [facility] Comment on above: Result Comment: Triglyceride Guidelines: <150 Desirable 150-199 Borderline 200-499 High >499 Very high Based on AHA Guidelines for fasting triglyceride, June 2012. Performed By: #### L IPR #### [facility] [address] [place] [address] Soap Drier Operator: Harpal Adair MD Magnesiumon 08-12-2023 Magnesium [Mass/Vol] 2.1 mg/dL Normal 1.6-2.[address] [facility] Comment on above: Performed By: #### P THNCA, FEBC, FERI, GLYHGB, VD25 #### [facility] [address] [place] [address] Soap Drier Operator: Harpal Adair MD #### ARIAN OLIVOTB1, AZN #### [facility] [address] [place] [address] Soap Drier Operator: Patricio Zuñiga MD #### CP, MG, CDP #### [address] [place] [address] Soap Drier Operator: Hilton Armenta MD PTH, Intacton 08-12-2023 PTH, Intact 17.1 pg/mL Normal 14.0-72.0 [facility] Comment on above: Result Comment: SAMP LES FROM PATIENTS ROUTINELY RECEIVING HIGH DOSE BIOTIN THERAPY MAY SHOW FALSELY DEPRESSED RESULTS. ADDITIONAL INFORMATION MAY BE REQUIRED FOR DIAGNOSIS. Performed By: #### P BAILEY, ALFONSO, ASHLYI, GLYHGB, VD25 #### [address] [place], [place] [id number] Soap Drier Operator: Harpal Adair MD #### AGNES OLIVO, AZN #### [facility] [address] [place] [address] Soap Drier Operator: Patricio Zuñiga MD #### MG ANGEL, CDP #### [address] [place], [facility] Soap Drier Operator: Hilton Armenta MD Thyroid Stim. Horm.on 2022 Thyroid Stim. Horm. 1.50 uIU/mL Normal 0.30-5.[address] [facility] Comment on above: Performed By: #### P DENNISAALFONSO, ASHLYI, GLYHGB, VD25 #### [address] [id number] Soap Drier Operator: Harpal Adair MD #### AGNES OLIVO, AZN #### [facility] [address] [place] [address] Soap Drier Operator: Patricio Zuñiga MD #### MG ANGEL, CDP #### [address] [place] [address] Soap Drier Operator: Hilton Armenta MD Thyroxine, Freeon 08-12-2023 Thyroxine, Free 1.2 ng/dL Normal 0.9-1.7 [facility] Comment on above: Performed By: #### P THNCA, FEBC, FERI, GLYHGB, VD25 #### [facility] [address] [place] [address] Soap Drier Operator: Harpal Adair MD #### TYREE OLIVO1, AZN #### [facility] [address] [place] [address] Soap Drier Operator: Patricio Zuñiga MD #### CP, MG, CDP #### [facility] [address] [place] [address] Soap Drier Operator: Hilton Armenta MD US GALLBLADDER RUQon 023 US GALLBLADDER RUQ EXAMINATION: RIGHT UPPER QUADRANT ULTRASOUND 08/12/2023 7:25 am COMPARISON: None. HISTORY: ORDERING SYSTEM PROVIDED HISTORY: LUQ pain TECHNOLOGIST PROVIDED HISTORY: This procedure can be scheduled via [employer]. Access your [employer] account by visiting [employer]. FINDINGS: LIVER: The liver demonstrates normal echogenicity without evidence of intrahepatic biliary ductal dilatation. Liver 15.9 cm in length. Hepatopetal flow portal vein. BILIARY SYSTEM: Gallbladder is unremarkable without evidence of pericholecystic fluid, wall thickening or stones. Negative sonographic Agee's sign. Common bile duct is within normal limits measuring 5.8 mm. RIGHT KIDNEY: The right kidney is grossly unremarkable without evidence of hydronephrosis. PANCREAS: Technologist measures an ill-defined area of hypoechogenicity regional to the pancreatic tail 3.8 x 3.1 x 2.7 cm. OTHER: No evidence of right upper quadrant ascites. IMPRESSION: No acute findings Technologist measures an ill-defined area regional to the pancreatic tail 3.8 x 3.1 x 2.7 cm. Recommend further evaluation with CT or MRI pancreatic mass protocol. Interpreted by: Bret Monson DO Signed by: Bret Monson DO 08/12/23 Final result Normal [facility] Vitamin D 25 OHon 08-12-2023 Vitamin D 25 OH 45.1 ng/mL Normal >29.9 [facility] Comment on above: Result Comment: Reference Range: Vitamin D status Range Deficiency <20 ng/mL Mild Deficiency 20-30 ng/mL Sufficiency 30-100 ng/mL Toxicity >100 ng/mL Performed By: #### P THNCA, FEBC, FERI, GLYHGB, VD25 #### [address] [address] Soap Drier Operator: Harpal Adair MD #### PALLAVI, ARIANTB1, AZN #### [facility] [address] [place] [address] Soap Drier Operator: Patricio Zuñiga MD #### CP, MG, CDP #### [facility] [address] [place] [address] Soap Drier Operator: Hilton Armenta MD Patient Correspondenceon Patient Correspondence [phone] [id number] Normal [facility] CBC with Diffon 07-30-2023 Abs. Basophil 0.08 k/uL Normal 0.00-0.20 [facility] Comment on above: Performed By: #### T SH, CDP, LIP, CP #### [address] [address] Soap Drier Operator: Harpal Adair MD Abs.Imm.Granulocyte 0.04 k/uL Normal 0.00-0.30 [facility] Comment on above: Performed By: #### T SH, CDP, LIP, CP #### [address] [address] Soap Drier Operator: Harpal Adair MD Abs.Neutrophil (Seg) 6.94 k/uL Normal 1.50-8.10 [facility] Comment on above: Performed By: #### T SH, CDP, LIP, CP #### [address] [address] Soap Drier Operator: Harpal Adair MD Basophils/100 WBC (Bld) 1 % Normal 0-2 [facility] Comment on above: Performed By: #### T SH, CDP, LIP, CP #### [address] [address] Soap Drier Operator: Harpal Adair MD Eosinophils (Bld) [#/Vol] 0.23 10*3/uL Normal 0.00-0.44 [facility] Comment on above: Performed By: #### T SH, CDP, LIP, CP #### [address] [address] Soap Drier Operator: Harpal Adair MD Eosinophils/100 WBC (Bld) 2 % Normal 1-4 [facility] Comment on above: Performed By: #### T SH, CDP, LIP, CP #### [place] [address] Soap Drier Operator: Harpal Adair MD Erythrocyte distribution width (RBC) [Ratio] 15.3 % High 11.8-14.4 [facility] Comment on above: Performed By: #### T SH, CDP, LIP, CP #### [place] [address] Soap Drier Operator: Harpal Adair MD Hematocrit (Bld) [Volume fraction] 38.8 % Normal 36.3-47.1 [facility] Comment on above: Performed By: #### T SH, CDP, LIP, CP #### [facility] [employer] [address] [place] [address] Soap Drier Operator: Harpal Adair MD Hemoglobin (Bld) [Mass/Vol] 12.5 g/dL Normal 11.9-15.1 [facility] [facility] Comment on above: Performed By: #### T SH, CDP, LIP, CP #### [facility] [employer] [address] [place] [address] Soap Drier Operator: Harpal Adair MD Immature granulocytes/100 WBC (Bld) 0 % Normal 0 [facility] Comment on above: Performed By: #### T SH, CDP, LIP, CP #### [address] [address] Soap Drier Operator: Harpal Adair MD Lymphocytes (Bld) [#/Vol] 2.19 10*3/uL Normal 1.10-3.70 [facility] Comment on above: Performed By: #### T SH, CDP, LIP, CP #### [place] [address] Soap Drier Operator: Harpal Adair MD Lymphocytes/100 WBC (Bld) 21 % Low 24-43 [facility] Comment on above: Performed By: #### T SH, CDP, LIP, CP #### [place] [address] Soap Drier Operator: Harpal Adair MD MCH (RBC) [Entitic mass] 30.6 pg Normal 25.2-33.5 [facility] Comment on above: Performed By: #### T SH, CDP, LIP, CP #### [place] [address] Soap Drier Operator: Harpal Adair MD MCHC (RBC) [Mass/Vol] 32.2 g/dL Normal 28.4-34.8 [facility] Comment on above: Performed By: #### T SH, CDP, LIP, CP #### [place] [address] Soap Drier Operator: Harpal Adair MD MCV (RBC) [Entitic vol] 94.9 fL Normal 82.6-102.9 [facility] Comment on above: Performed By: #### T SH, CDP, LIP, CP #### [place] [address] Soap Drier Operator: Harpal Adair MD Monocytes (Bld) [#/Vol] 0.74 10*3/uL Normal 0.10-1.20 [facility] Comment on above: Performed By: #### T SH, CDP, LIP, CP #### [address] [address] Soap Drier Operator: Harpal Adair MD Monocytes/100 WBC (Bld) 7 % Normal 3-12 M [facility] Comment on above: Performed By: #### T SH, CDP, LIP, CP #### [address] [address] Soap Drier Operator: Harpal Adair MD Neutrophil (Seg) 69 % High 36-65 [facility] Comment on above: Performed By: #### T SH, CDP, LIP, CP #### [address] [address] Soap Drier Operator: Harpal Adair MD NRBC Automated 0.0 per 100 WBC Normal 0.0 [facility] Comment on above: Performed By: #### T SH, CDP, LIP, CP #### [address] [address] Soap Drier Operator: Harpal Adair MD Platelet mean volume (Bld) [Entitic vol] 12.0 fL Normal 8.1-13.5 [facility] Comment on above: Performed By: #### T SH, CDP, LIP, CP #### [address] [address] Soap Drier Operator: Harpal Adair MD Platelets (Bld) [#/Vol] 348 10*3/uL Normal 138-453 [facility] Comment on above: Performed By: #### T SH, CDP, LIP, CP #### [address] [address] Soap Drier Operator: Harpal Adair MD RBC (Bld) [#/Vol] 4.09 10*6/uL Normal 3.95-5.11 [facility] Comment on above: Performed By: #### T SH, CDP, LIP, CP #### [address] [address] Soap Drier Operator: Harpal Adair MD RBC morphology finding Nom (Bld) ANISOCYTOSIS PRESENT Normal [facility] Comment on above: Performed By: #### T SH, CDP, LIP, CP #### [address] [address] Soap Drier Operator: Harpal Adair MD WBC (Bld) [#/Vol] 10.2 10*3/uL Normal 3.5-11.3 [facility] Comment on above: Performed By: #### T SH, CDP, LIP, CP #### [address] [address] Soap Drier Operator: Harpal Adair MD Comp Metabolic Profon 2022 Bilirubin [Mass/Vol] mg/dL Low 0.3-1.2 [facility] Comment on above: Performed By: #### T SH, CDP, LIP, CP #### [address] [address] Soap Drier Operator: Harpal Adair MD Albumin [Mass/Vol] 4.4 g/dL Normal 3.5-5.2 [facility] Comment on above: Performed By: #### T SH, CDP, LIP, CP #### [facility] [employer] [address] [place] [address] Soap Drier Operator: Harpal Adair MD Albumin/Glob Ratio 1.4 Normal 1.0-2.5 [facility] Comment on above: Performed By: #### T SH, CDP, LIP, CP #### [facility] [employer] [address] [place] [address] Soap Drier Operator: Harpal Adair MD Alkaline Phos 76 U/L Normal 35-104 [facility] Comment on above: Performed By: #### T SH, CDP, LIP, CP #### [address] [address] Soap Drier Operator: Harpal Adair MD ALT [Catalytic activity/Vol] 20 U/L Normal 5-33 [facility] Comment on above: Performed By: #### T SH, CDP, LIP, CP #### [facility] [employer] [address] [place] [address] Soap Drier Operator: Harpal Adair MD Anion gap [Moles/Vol] 11 mmol/L Normal 9-17 [facility] Comment on above: Performed By: #### T SH, CDP, LIP, CP #### [facility] [employer] [address] [place] [address] Soap Drier Operator: Harpal Adair MD AST [Catalytic activity/Vol] 22 U/L Normal <32 [facility] Comment on above: Performed By: #### T SH, CDP, LIP, CP #### [facility] [employer] [address] [place] [address] Soap Drier Operator: Harpal Adair MD Calcium [Mass/Vol] 9.6 mg/dL Normal 8.6-10.4 [facility] Comment on above: Performed By: #### T SH, CDP, LIP, CP #### [facility] [employer] [address] [place] [address] Soap Drier Operator: Harpal Adair MD Chloride [Moles/Vol] 105 mmol/L Normal 98-107 [facility] Comment on above: Performed By: #### T SH, CDP, LIP, CP #### [facility] [employer] [address] [place] [address] Soap Drier Operator: Harpal Adair MD CO2 [Moles/Vol] 23 mmol/L Normal 20-31 [facility] Comment on above: Performed By: #### T SH, CDP, LIP, CP #### [facility] [employer] [address] [place] [address] Soap Drier Operator: Harpal Adair MD Creatinine [Mass/Vol] 0.6 mg/dL Normal 0.5-0.9 [facility] Comment on above: Performed By: #### T VALERIO REED LIP, CP #### [facility] [employer] [address] [place] [address] Soap Drier Operator: Harpal Adair MD GFR/1.73 sq M.predicted among non-blacks MDRD (S/P/Bld) [Vol rate/Area] mL/min/{1.73_m2} Normal >60 [facility] Comment on above: Result Comment: These results are not intended for use in patients <18 years of age. eGFR results are calculated without a race factor using the 2020 CKD-EPI equation. Careful clinical correlation is recommended, particularly when comparing to results calculated using previous equations. The CKD-EPI equation is less accurate in patients with extremes of muscle mass, extra-renal metabolism of creatine, excessive creatine ingestion, or following therapy that affects renal tubular secretion. Performed By: #### T VALERIO REED LIP, CP #### [facility] [employer] [address] [place] [address] Soap Drier Operator: Harpal Aadir MD Glucose [Mass/Vol] 73 mg/dL Normal 70-99 [facility] Comment on above: Performed By: #### T VALERIO REED LIP, CP #### [facility] [employer] [address] [place] [address] Soap Drier Operator: Harpal Adair MD Potassium [Moles/Vol] 4.0 mmol/L Normal 3.7-5.3 [facility] Comment on above: Performed By: #### T VALERIO REED LIP, CP #### [facility] [employer] [address] [place] [address] Soap Drier Operator: Harpal Adair MD Protein [Mass/Vol] 7.5 g/dL Normal 6.4-8.3 [facility] Comment on above: Performed By: #### T VALERIO REED LIP, CP #### [facility] [address] [place] [address] Soap Drier Operator: Harpal Adair MD Sodium [Moles/Vol] 139 mmol/L Normal 135-144 [facility] Comment on above: Performed By: #### T SH, CDP, LIP, CP #### [address] [address] Soap Drier Operator: Harpal Adair MD Urea nitrogen [Mass/Vol] 15 mg/dL Normal 6-20 [facility] Comment on above: Performed By: #### T SH, CDP, LIP, CP #### [address] [address] Soap Drier Operator: Harpal Adair MD Lipaseon 07-30-2023 Lipase [Catalytic activity/Vol] 45 U/L Normal 13-60 [facility] Comment on above: Performed By: #### T BRIANNA, CDP, LIP, CP #### [address] [address] Soap Drier Operator: Harpal Adair MD Thyroid Stim. Horm.on 2022 Thyroid Stim. Horm. 1.18 uIU/mL Normal 0.30-5.00 [facility] Comment on above: Performed By: #### T SH, CDP, LIP, CP #### [address] [address] Soap Drier Operator: Harpal Adair MD UA w/Reflex Cultureon 2022 Bilirubin, SemiQt,Ur Negative Normal NEG [facility] Comment on above: Performed By: #### U AX #### [address] [address] Soap Drier Operator: Harpal Adair MD Blood, Urine Negative Normal NEG [facility] Comment on above: Performed By: #### U AX #### [address] [address] Soap Drier Operator: Harpal Adair MD Clarity (U) Clear Normal CLEAR [facility] Comment on above: Performed By: #### U AX #### [address] [address] Soap Drier Operator: Harpal Adair MD Color (U) Yellow Normal YEL [facility] Comment on above: Performed By: #### U AX #### [address] [address] Soap Drier Operator: Harpal Adair MD Comment Microscopic exam not performed based on chemical results unless requested in Normal [facility] Comment on above: Result Comment: orig inal order. Performed By: #### U AX #### [address] [address] Soap Drier Operator: Harpal Adair MD Glucose Ql (U) Negative Normal NEG [facility] Comment on above: Performed By: #### U AX #### [address] [address] Soap Drier Operator: Harpal Adair MD Ketones Ql (U) Negative Normal NEG [facility] Comment on above: Performed By: #### U AX #### [address] [address] Soap Drier Operator: Harpal Adair MD Leukocyte esterase Test strip Ql (U) Negative Normal NEG [facility] Comment on above: Performed By: #### U AX #### [address] [address] Soap Drier Operator: Harpal Adair MD Nitrite,Ur Negative Normal NEG [facility] Comment on above: Performed By: #### U AX #### [address] [address] Soap Drier Operator: Harpal Adair MD PH,Ur 5.0 Normal 5.0-8.0 [facility] Comment on above: Performed By: #### U AX #### [facility] [address] [place] [address] Soap Drier Operator: Harpal Adair MD Protein Ql (U) Negative Normal NEG [facility] Comment on above: Performed By: #### U AX #### [facility] [address] [place] [address] Soap Drier Operator: Harpal Adair MD Spec. Appling,Ur 1.020 Normal 1.005-1.030 [facility] Comment on above: Performed By: #### U AX #### [facility] [address] [place] [address] Soap Drier Operator: Harpal Adair MD Urobilinogen,Ur Normal Normal 0.0-1.0 [facility] Comment on above: Performed By: #### U AX #### [facility] [employer] [address] [place] [address] Soap Drier Operator: Harpal Adair MD ED Note-Physicianon 31-20 23 ED Note-Physician Basic Information Time Seen: Torres GERONIMO, Shama Bellamy. 06/09/2023 15:45 Chief Complaint Pt presents to ED with complaints of MALDONADO onset today. History of Present Illness This patient presents to the emergency department chief complaint of maryam. She states that she has spent $10,000 in the last 2 weeks. She did see her psychiatrist at [facility] today and they are starting her on Geodon tonight at bedtime. They did not want her to take it earlier because there afraid it would make her too fatigued. The patient states after having an appointment with her psychiatrist, she developed a very bad headache. They suggested she come to the emergency department. The patient states that she has a history of drug abuse and alcohol abuse. She is currently on Vivitrol. She has been sober for 70 days today. She adamantly denies any suicidal or homicidal ideation. She lives with her and her 4 children. She denies any nausea or vomiting. Patient denies stating she had a hysterectomy recently due to menorrhagia and bleeding fibroids. The patient does smoke cigarettes. She denies any fevers chills or sweats. She denies any visual disturbances. She denies any chest pain or shortness of breath. She denies any abdominal pains. She denies any urinary or bowel complaints. Review of Systems Constitutional: Denies weight loss, fevers, chills, sweats, malaise Eyes: Denies visual changes, eye pain, double vision, scotomas, floaters ENT: Denies runny nose, epistaxis, sinus pain, ear pain, ringing in ears, tooth ache, sore throat, pain with swallowing Cardiovascular: Denies chest pain, shortness of breath, orthopnea, edema, palpitations, loss of consciousness, claudication Respiratory: Denies cough, sputum production, wheezing, hemoptysis, shortness of breath, dyspnea on exertion Gastrointestinal: Denies abdominal pain, unintentional weight loss, difficulty swallowing, indigestion, bloating, cramping, loss of appetite, nausea, vomiting, diarrhea, constipation, hematochezia, melena Genitourinary: Denies any incontinence of urine, dysuria, hematuria, nocturia, polyuria, hesitancy, frequency, urgency, burning Musculoskeletal: Denies joint pain, morning stiffness, joint swelling, decreased range of motion, crepitus Integumentary: Denies any pruritus, rashes, lesions, wounds, petechiae Neurologic: Denies any changes in sight, smell, hearing, taste, seizures, paresthesia, numbness, weakness, balance disturbance. + headache Psychiatric denies any depression, change in sleep patterns, anxiety, difficulty concentrating, paranoia, anhedonia, lack of energy. + maryam Hematologic/lymphatic : Denies any purpura, petechiae, excessive bleeding, bruising Physical Exam Vitals & Measurements T: 36.7 ?C(Oral) HR: 80(Peripheral) RR: 18 BP: 122/80 SpO2: 100% HT: 170 cm WT: 84 kg BMI: 29.07 Vital Signs reviewed and noted. General: Alert, no acute distress, patient resting comfortably Skin: warm, intact, no pallor noted Head: Normocephalic, atraumatic Eye: Normal conjunctiva, pupils equal round reactive to light. TMs are intact bilaterally, canals are clear bilaterally. The neck is supple, there is no palpable adenopathy. Cardiac: Regular rate and rhythm Respiratory: Clear to auscultation Abdominal exam: There is no organomegaly. Bowel sounds are present active and normal. Abdomen is soft, nontender. Musculoskeletal: No deformity, full ROM. Neurological: alert and oriented, normal sensory and motor observed. Psychiatric: Cooperative, interactive, good eye contact Medical Decision Making MEDICAL DECISION MAKING Number and Complexity of Problems Differential Diagnosis: Maryam, headache MDM Data External documents reviewed: Not applicable My EKG interpretation: Noted in chart if applicable My CT interpretation: Noted in chart if applicable My X-ray interpretation: Noted in chart if applicable My Ultrasound interpretation: Not applicable Decision rules/scores evaluated: Noted in chart if applicable Discussed with: Not applicable Treatment and Disposition ED Course: Patient was interviewed and examined. Saline lock was established. Patient was given IV fluid hydration. Patient was medicated with promethazine for nausea and diphenhydramine to avoid EPS. Upon reevaluation, the patient states she still has a headache. I did offer to provide further medications. The patient declined. She states she is very frustrated with this whole situation. She just wants to go home and take her newly prescribed Geodon at bedtime tonight. I discussed the discharge diagnosis, home-going instructions with the patient. The patient will be discharged home in stable condition. She is to follow-up with her primary care physician and mental health providers. She is to return to the emergency department for any further problems or concerns. Shared decision making: I discussed the discharge diagnosis and plan of care with the patient. She is in agreement with the plan of care. (more content not included)... [facility] Comment on above: Result Comment: Elec tronically Signed By: Shama Macdonald PA-C\.br\Date and Time Signed: 07/14/23 19:57 EDT\.br\Electronically Co-Signed By: Alexis Shukla DO\.br\Date and Time Co-Signed: 07/20/23 07:11 EST COVID Quick Testingon 2022 Result Negative [facility] Other Consultation Noteon 07-08-20 Consultation Note [id number] [facility] Consent for Treatmenton 06-14 Consent for Treatment [id number] Normal [facility] ED Clinical Summaryon 2022 ED Clinical Summary [place] [id number] ED Clinical Summary Person Information Name: SHAZIA [place]OU [place] Age: 32 Years : 1990 Sex: Female Language: Djiboutian PCP: Jennie Ames DO Marital Status: Phone: [phone] MRN: Visit Id: Visit Reason: Headache; Neck pain; HEADACHE, NECK PAIN Speciality: Acuity: 4 Enc Type: Emergency Med Service: Emergency Arrival: 07/02/2023 14:03:05 Discharge: 07/02/2023 15:28:37 LOS: 000 01:25 Checkin: 07/02/2023 14:03:05 Checkout: 07/02/2023 15:28:37 Dispo Type: Left Without Being Seen EVENTS: Event Name Event Status Request Date/Time Start Date/Time Complete Date/Time Arrive Complete 07/02/2023 14:03:05 07/02/2023 14:03:05 07/02/2023 14:03:05 Document Home Meds Request 07/02/2023 14:03:05 Triage Complete 07/02/2023 14:03:05 07/02/2023 14:08:33 07/02/2023 14:08:33 Bed Assign Complete 07/02/2023 14:04:01 07/02/2023 14:04:01 07/02/2023 14:04:01 Dr Exam Complete 07/02/2023 14:04:01 07/02/2023 15:01:42 07/02/2023 15:01:42 RN Exam Complete 07/02/2023 14:04:01 07/02/2023 14:20:50 07/02/2023 14:20:50 Registration Complete 07/02/2023 15:01:42 07/02/2023 15:08:47 07/02/2023 15:08:47 Dr Exam Complete 07/02/2023 15:05:35 07/02/2023 15:05:35 07/02/2023 15:05:35 Reg Complete Request 07/02/2023 15:08:47 Reg Bed Request Complete 07/02/2023 15:08:47 07/02/2023 15:08:47 07/02/2023 15:08:47 Discharge Complete 07/02/2023 15:29:14 07/02/2023 15:29:14 07/02/2023 15:29:14 Transfer Complete 07/02/2023 15:29:14 07/02/2023 15:29:14 07/02/2023 15:29:14 ADDRESS: [address] [place] [id number] [facility] DOC NOTES: MEDICAL INFORMATION: Prescriptions Given: Medications to Continue with No Changes Other Medications acetaminophen (Tylenol) 325 Milligram By Mouth every 4 hours as needed as needed for pain. acetaZOLAMIDE (acetaZOLAMIDE 500 mg oral capsule, extended release) 1 Capsules By Mouth 2 times a day. brexpiprazole (Rexulti 3 mg oral tablet) 1 Tablets By Mouth every day. calcium citrate (calcium (as calcium citrate) 200 mg oral tablet) By Mouth 2 times a day. duloxetine (Cymbalta) 60 Milligram By Mouth 2 times a day. per dr chaparro. gabapentin (gabapentin 300 mg Cap) 1 Capsules By Mouth 2 times a day. lisinopril (lisinopril 5 mg Tab) 1 Tablets By Mouth every day. Refills: 5. multivitamin with minerals (Multi-Day Plus Minerals) By Mouth every day. ondansetron (Zofran 8 mg Tab) 1 Tablets By Mouth 2 times a day. Refills: 1. pantoprazole (Pantoprazole [address] Tab) 1 Tablets By Mouth every day. trazodone 100 Milligram By Mouth once a day (at bedtime). PATIENT EDUCATION INFORMATION: Instructions: Follow up: DIAGNOSIS: Normal [facility] ED Patient Education Noteon 07-02-2023 ED Patient Education Note Normal [facility] ED Patient Summaryon 023 ED Patient Summary [address] [address] Patient Discharge Instructions Person Information Name: SHAZIA CHOU Age: 32 Years Arrival Date: 07/02/2023 14:03:05 Discharge Diagnosis: Primary Care Physician: Jennie Ames DO Provider Information Primary Provider: Bakari Chester DO Advanced Compressor Operator:Merari Polanco PA-C The exam and treatment you received in the Emergency Department were for an urgent problem and are not intended as complete care. It is important that you follow up with a doctor, nurse practitioner, or physician?s purchasing administrative assistant for ongoing care. If your symptoms become worse or you do not improve as expected and you are unable to reach your usual health care provider, you should return to the Emergency Department. We are available 24 hours a day. SHAZIA CHOU has been given the following list of patient education materials, prescriptions and follow-up instructions: Follow-up Instructions: In the event that this physician does not participate in your insurance network, please consult with your insurance company to find a nearby participating provider. Patient Education Materials: A MESSAGE TO ALL PATIENTS REGARDING OPIOIDS PRESCRIPTION OPIOIDS: WHAT YOU NEED TO KNOW Prescription opioids can be used to help relieve fvcsultn-hu-ngtxeh pain and are often prescribed following a surgery or injury, or for certain health conditions. These medications can be an important part of the treatment but also come with serious risks. It is important to work with your healthcare provider to make sure you are getting the safest, most effective care. WHAT ARE THE RISKS AND SIDE EFFECTS OF OPIOID USE? Prescription opioids carry serious risks of addiction and overdose, especially with prolonged use. An opioid overdose, often marked by slowed breathing, can cause sudden . The use of prescription opioids can have a number of side effects as well, even when taken as directed: ? Tolerance?meaning you might need to take more of the medication for the same pain relief ? Physical dependence?meaning you have symptoms of withdrawal when a medication is stopped ? Increased sensitivity to pain ? Constipation ? Nausea, vomiting, and dry mouth ? Sleepiness and dizziness ? Confusion ? Depression ? Low levels of testosterone that can result in lower sex drive, energy, and strength ? Itching and sweating RISKS ARE GREATER WITH: ? History of drug misuse, substance use disorder, or overdose ? Mental health conditions (such as depression or anxiety) ? Sleep apnea ? Older age (65 years and older) ? Avoid alcohol while taking prescription opioids. Also, unless specifically advised by your health care provider, medications to avoid include: ? Benzodiazepines (such as Xanax or Valium) ? Muscle relaxants (such as Soma or Flexeril) ? Hypnotics (such as Ambien or Lunesta) ? Other prescription opioids KNOW YOUR OPTIONS Talk to your health care provider about ways to manage your pain that don?t involve prescription opioids. Some of these options may actually work better and have fewer risks and side effects. Options may include: ? Pain relievers such as acetaminophen, ibuprofen, and naproxen ? Some medication that are also used for depression or seizures ? Physical therapy and exercise ? Cognitive behavioral therapy, a psychological, goal-directed approach, in which patients learn how to modify physical, behavioral, and emotional triggers of pain and stress. IF YOU ARE PRESCRIBED OPIOIDS FOR PAIN: ? Never take opioids in greater amounts or more often than prescribed. ? Follow up with your primary health care provider. o Work together to create a plan on how to manage your pain. o Talk about ways to help manage your pain that don?t involve prescription opioids. o Talk about any and all concerns and side effects. ? Help prevent misuse and abuse o Never sell or share prescription opioids. o Never use another person?s prescription opioids. ? Store prescription opioids in a secure place and out of reach of others (this may include visitors, children, friends, and family). ? Safely dispose of unused prescription opioids: Find your community drug take-back program or your pharmacy mail-back program, or flush them down the toilet, following guidance from the Food and Drug Administration (www.fda.gov/Drugs/Re sourcesForYou). ? Visit www.cdc.gov/drugoverd ose to learn about the risks of opioids abuse and overdose. ? If you believe you may be struggling with addiction, tell your health care navigator and ask for guidance or call SAMHSA?S National Helpline at 0-809-578-ZIDF. x Source: US Department of Health and Human Services/Center for Disease Control & Prevention [facility] Medications Given: Medication Dose Route No medication (more content not included)... [facility] Consultation Noteon 06-22-20 23 Consultation Note [id number]. 00TIFF [facility] Consultation Noteon 06-19-20 Consultation Note [id number] .00TIFF [facility] CNPSandra 06-15-2023 CNPN Telephone (NEADFV) CASSIASHAZIA MALDONADO ([id number]) 1990 F Date Time Provider Department 06/15/23 EILEEN MANZANO During your visit today, we recorded the following information about you: Bunny Durbin RN 06/15/2023 4:57 PM Signed Received clinical notes and test results from [facility] ED visit from 06/10/23. 13 pages. Scanned to chart via [employer]. Routed to provider for review Glen Singh 07/03/2023 9:21 AM Signed Patient called stating that she is feeling lots of pressure and extreme pain on the head. Patient was in the ER yesterday and was discharge with no clarification of why she is felling this pain and pressure. She talked to PCP and they said she needed to see Dr. Manzano for a follow up but she is not able to see her till 10/07/23. Patient is taking medication but is not alleviating the problem. Patient # [phone] SophiajilGorge 07/03/2023 12:15 PM Signed Per instructions from Dr. Manzano. LM for patient, also sent message via ROOOMERS. She needs to be back on diamox 500mg bid. Eileen Manzano MD Allergies As of Date: 06/15/2023 Noted Allergy Reaction COCONUT 11/20/2022 7 - Swelling Date Reviewed: 11/20/2022 Reviewed by: Edith Bedolla MA - Fully Assessed Reason for Visit: Patient Update [1234] Prescriptions as of 07/03/2023 - acetaZOLAMIDE SR (DIAMOX SEQUELS) 500 mg capsule TAKE 1 CAPSULE BY MOUTH TWICE DAILY. START FROM 500MG DAILY, INCREASE TO TWICE A DAY IN A WEEK - brexpiprazole (REXULTI) 4 mg tablet Take by mouth once daily. - DULoxetine (CYMBALTA) 60 mg capsule Take 60 mg by mouth once daily. - pantoprazole DR (PROTONIX) 40 mg tablet Take 40 mg by mouth once daily. - xtignqunlvqa-xum-heht -FA-vit K (BARIATRIC MULTIVITAMINS) 45 mg iron- 800 mcg-120 mcg cap Take by mouth. - calcium citrate-vitamin D3 500 mg-12.5 mcg /5 gram powd Take by mouth. Problem List As Of Date 06/15/2023 Noted Resolved POOR GRTH-ANTEPART [O36.5990] 07/03/2008 Idiopathic intracranial hypertension [G93.2] 11/20/2022 Primary hypertension [I10] 11/20/2022 Depression [F32.A] 11/20/2022 Hx of gastric bypass [Z98.84] 11/20/2022 H/O foot surgery [Z98.890] 11/20/2022 Bipolar affective disorder in remission (HCC) [*06/10/2023 Encounter Status:Closed by GORGE BETANCUR on 07/03/23 [facility] CNPN Telephone (NIQ) SHAZIA CHOU ([id number]) 1990 F Date Time Provider Department 06/15/23 EILEEN MANZANO JANET During your visit today, we recorded the following information about you: Fabby Fam 06/15/2023 3:[address] Brain report from [facility]. Scanned to chart for review. Bunny Durbin RN 06/15/2023 4:[address] brain results available in scanned documents for your review. Bunny Durbin RN 06/16/2023 3:04 PM Signed Call to patient without answer. Voice message left asking her to review her LogFire message with a response from . Informed that she may return our call if needed. Allergies As of Date: 06/15/2023 Noted Allergy Reaction COCONUT 11/20/2022 7 - Swelling Date Reviewed: 11/20/2022 Reviewed by: Edith Bedolla MA - Fully Assessed Reason for Visit: Received Outside Medical Records [[id number]] Prescriptions as of 06/16/2023 - acetaZOLAMIDE SR (DIAMOX SEQUELS) 500 mg capsule TAKE 1 CAPSULE BY MOUTH TWICE DAILY. START FROM 500MG DAILY, INCREASE TO TWICE A DAY IN A WEEK - brexpiprazole (REXULTI) 4 mg tablet Take by mouth once daily. - DULoxetine (CYMBALTA) 60 mg capsule Take 60 mg by mouth once daily. - pantoprazole DR (PROTONIX) 40 mg tablet Take 40 mg by mouth once daily. - nztrmxiqbwtb-dyz-evqc -FA-vit K (BARIATRIC MULTIVITAMINS) 45 mg iron- 800 mcg-120 mcg cap Take by mouth. - calcium citrate-vitamin D3 500 mg-12.5 mcg /5 gram powd Take by mouth. Problem List As Of Date 06/15/2023 Noted Resolved POOR GRTH-ANTEPART [O36.5990] 07/03/2008 Idiopathic intracranial hypertension [G93.2] 11/20/2022 Primary hypertension [I10] 11/20/2022 Depression [F32.A] 11/20/2022 Hx of gastric bypass [Z98.84] 11/20/2022 H/O foot surgery [Z98.890] 11/20/2022 Bipolar affective disorder in remission (HCC) [*06/10/2023 Encounter Status:Closed by BUNNY DURBIN on 06/16/23 [facility] Ernesto 06-11-2023 IRENEN Telephone (NECVS8) SHAZIA CHOU ([id number]) 1990 F Date Time Provider Department 06/11/23 EILEEN MANZANOVS8 During your visit today, we recorded the following information about you: Daisy Martínez 06/11/2023 2:04 PM Signed CV PHONE Name of caller : Salbaodr Jolly Relationship to patient : [facility] If not self Will need patient permission to release results or disclose health information with called documented in fyi. Patient identified by Name and Date of . ( Shazia José Antonio, 1990). 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 The results are available [facility]. Patient is still experiencing vision changes and headaches. [phone] Thank you calling [facility]. You will receive a return call within 48 hours ( or 2 business days if close to the weekend). If you feel that this is an urgent issue and needs immediate attention, it is recommended that you contact your primary care provider office or proceed to your nearest Urgent Care Center of Emergency Room ED for evaluation/treatment. Bunny Dubrin RN 06/12/2023 10:25 AM Signed Spoke with Karin at radiology at [facility]. She will fax the CT Brain results to our office. Fax number provided. Bunny Durbin RN 06/12/2023 2:53 PM Signed As of this hour, no fax received for CT Brain . Spoke with outbound telemarketing representative again in radiology and different fax number provided to have this sent to out office. Bunny Durbin RN 06/12/2023 2:53 PM Signed Received copy of CT Brain and scanned to chart via Onbase. No mention of idiopathic pachymeningitis. Impression states no acute findings in the brain at this time. Bunny Durbin RN 06/12/2023 3:15 PM Signed Spoke with patient who states that she was evaluated in the ED today at [facility] for complaints of 'feeling like someone was sitting on her ches ; vision 'can't focus'; headache that was constant and to posterior neck and radiating down the neck. Headache pain is 4/10 currently with the Methocarbomol that they provided her. States that she can see everything but cant seem to focus. EKG was negative. Asking if any change in care is needed. Bunny Durbin RN 06/12/2023 4:[address] Manzano routing comment: We will leave it to the local ED and PCP to manage the systemic issue. They are not from her intracranial hypertension. She should continue diamox and follow up with me. Eileen Manzano MD Informed patient of the above response from . she said that her pcp feels that this is a neurological issue and that she should follow with . she has inquired about neurologist in her area and she said that there is no one in the area so she is concerned. She will call to schedule a follow up with related to the above recommendation from her. P Allergies As of Date: 06/11/2023 Noted Allergy Reaction COCONUT 11/20/2022 7 - Swelling Date Reviewed: 11/20/2022 Reviewed by: Edith Bedolla MA - Fully Assessed Reason for Visit: Results [95] Prescriptions as of 06/15/2023 - acetaZOLAMIDE SR (DIAMOX SEQUELS) 500 mg capsule TAKE 1 CAPSULE BY MOUTH TWICE DAILY. START FROM 500MG DAILY, INCREASE TO TWICE A DAY IN A WEEK - brexpiprazole (REXULTI) 4 mg tablet Take by mouth once daily. - DULoxetine (CYMBALTA) 60 mg capsule Take 60 mg by mouth once daily. - pantoprazole DR (PROTONIX) 40 mg tablet Take 40 mg by mouth once daily. - cgbemidcdizs-mba-rujw -FA-vit K (BARIATRIC MULTIVITAMINS) 45 mg iron- 800 mcg-120 mcg cap Take by mouth. - calcium citrate-vitamin D3 500 mg-12.5 mcg /5 gram powd Take by mouth. Problem List As Of Date 06/11/2023 Noted Resolved POOR GRTH-ANTEPART [O36.5990] 07/03/2008 Idiopathic intracranial hypertension [G93.2] 11/20/2022 Primary hypertension [I10] 11/20/2022 Depression [F32.A] 11/20/2022 Hx of gastric bypass [Z98.84] 11/20/2022 H/O foot surgery [Z98.890] 11/20/2022 Bipolar affective disorder in remission (HCC) [*06/10/2023 Encounter Status:Closed by BUNNY DURBIN on 06/15/23 Normal [facility] Dis[facility] Instructions[facility] Discharge Instructions [id number]# [id number]:127 Normal [facility] Acetamnphn Lvlon 06-09-2023 Acetaminophen [Mass/Vol] ug/mL Low 15-30 [facility] Comment on above: Performed By: #### 1 [id number], 4406309, 6298219, 2619717, 50086594, 9785125 #### [facility] [address] [place] [address] Auto Diffon 06-09-2023 Basophils/100 WBC (Bld) 0.6 % Normal 0.0-2.0 [facility] Comment on above: Order Comment: Order Added by Discern Expert. Performed By: #### 1 0881725, 5286296, 7814712, 7976948, 78394848, 9498492 #### [facility] [address] [place] [address] Basophils/Leukocytes Auto (Bld) [Pure # fraction] 0.0 E9/L Normal 0.0-0.2 [facility] Comment on above: Order Comment: Order Added by Discern Expert. Performed By: #### 1 3727059, 4481869, 9461043, 0844109, 61542138, 1458000 #### [facility] [address] [place] [address] Eosinophils/100 WBC (Bld) 1.9 % Normal 0.0-8.0 [facility] Comment on above: Order Comment: Order Added by Discern Expert. Performed By: #### 1 0418260, 6026626, 5143643, 1867472, 57838870, 1591015 #### [facility] [address] [place] [address] Eosinophils/Leukocytes Auto (Bld) [Pure # fraction] 0.2 E9/L Normal 0.0-0.5 [facility] Comment on above: Order Comment: Order Added by Ilana Expert. Performed By: #### 1 1801133, 2797095, 5230692, 3416158, 66234078, 4468542 #### [facility] [address] [place] [address] Lymphocytes/100 WBC (Bld) 23.4 % Normal 14.0-50.0 [facility] Comment on above: Order Comment: Order Added by Discern Expert. Performed By: #### 1 7389207, 8270815, 8588382, 2663429, 40276823, 3995223 #### [facility] [address] [place] [address] Lymphocytes/Leukocytes Auto (Bld) [Pure # fraction] 2.0 E9/L Normal 1.0-4.0 [facility] Comment on above: Order Comment: Order Added by Ilana Expert. Performed By: #### 1 7181215, 9221915, 9496631, 8768068, 75012260, 6081212 #### [facility] [address] [place] [address] Monocytes/100 WBC (Bld) 6.9 % Normal 4.0-14.0 [facility] Comment on above: Order Comment: Order Added by Ilana Expert. Performed By: #### 1 9993921, 0099632, 7514822, 9217001, 57471371, 6686467 #### [facility] [address] [place] [address] Monocytes/Leukocytes Auto (Bld) [Pure # fraction] 0.6 E9/L Normal 0.2-1.0 [facility] Comment on above: Order Comment: Order Added by Ilana Expert. Performed By: #### 1 4138963, 7073091, 3736353, 8207936, 87778881, 2640031 #### [facility] [address] [place] [address] Neutrophils/100 WBC (Bld) 67.2 % Normal 36.0-75.0 [facility] Comment on above: Order Comment: Order Added by Discern Expert. Performed By: #### 1 8295962, 8848390, 9724221, 4229241, 23156017, 7204040 #### [facility] [address] [place] [address] Neutrophils/Leukocytes Auto (Bld) [Pure # fraction] 5.6 E9/L Normal 2.0-7.5 [facility] Comment on above: Order Comment: Order Added by Discern Expert. Performed By: #### 1 3373857, 9448481, 8357937, 8528717, 55802930, 7830515 #### [facility] [address] [place] [address] CBC w/ Auto Diffon 3 Erythrocyte distribution width (RBC) [Ratio] 18.2 % High 10.9-14.2 [facility] Comment on above: Performed By: #### 1 6532097, 2125433, 0627703, 9304659, 56230154, 7136163 #### [facility] [address] [place] [address] Hematocrit (Bld) [Volume fraction] 34.3 % Normal 34.0-46.0 [facility] Comment on above: Performed By: #### 1 8016376, 3350346, 9870265, 6886624, 81650502, 1586003 #### [facility] [address] [place] [address] Hemoglobin (Bld) [Mass/Vol] 11.5 g/dL Low 12.0-16.0 [facility] Comment on above: Performed By: #### 1 9694026, 7051267, 0415993, 7959506, 66010814, 5349056 #### [facility] [address] [place] [address] MCH (RBC) [Entitic mass] 30.6 pg Normal 27.0-34.0 [facility] Comment on above: Performed By: #### 1 3593106, 1151832, 7454849, 8330516, 09560204, 2588020 #### [facility] [address] [place] [address] MCHC (RBC) [Mass/Vol] 33.6 g/dL Normal 31.4-36.0 [facility] Comment on above: Performed By: #### 1 8657410, 7773395, 9448142, 4303444, 04273363, 4401757 #### [facility] [address] [place] [address] MCV (RBC) [Entitic vol] 91.0 fL Normal 80.0-100.0 [facility] Comment on above: Performed By: #### 1 3032747, 0247103, 3796248, 5766318, 70293914, 9393386 #### [facility] [address] [place], [place] [address] Platelet mean volume (Bld) [Entitic vol] 9.8 fL Normal 6.4-10.8 [facility] Comment on above: Performed By: #### 1 9614001, 9132193, 0811264, 8274857, 11501994, 7853326 #### [facility] [address] [place] [address] Platelets (Bld) [#/Vol] 283.0 E9/L Normal 150.0-500.0 [facility] Comment on above: Performed By: #### 1 2633828, 9464447, 7443269, 5784698, 11296289, 3600672 #### [facility] [address] [place] [address] RBC (Bld) [#/Vol] 3.8 E12/L Low 4.3-5.9 [facility] Comment on above: Performed By: #### 1 6939931, 1238759, 4128135, 4542968, 73136572, 1427612 #### [facility] [address] [place] [address] WBC corrected for nucl RBC Auto (Bld) [#/Vol] 8.4 E9/L Normal 4.0-11.0 [facility] Comment on above: Performed By: #### 1 8519540, 2957734, 4439365, 9376650, 20929922, 3956874 #### [facility] [address] [place] [address] CMPon 06-09-2023 Albumin [Mass/Vol] 4.1 g/dL Normal 3.3-5.0 [facility] Comment on above: Performed By: #### 1 4853660, 3563208, 1288712, 0544949, 93171010, 8062681 #### [facility] [address] [place] [address] Albumin/Globulin (S) [Mass conc ratio] 1.3 Normal 1.1-2.2 [facility] Comment on above: Performed By: #### 1 2643724, 2834621, 3618540, 9437004, 37542068, 3598209 #### [facility] [address] [place] [address] ALP [Catalytic activity/Vol] 58 Int._Unit/L Normal 21-98 [facility] Comment on above: Performed By: #### 1 2572106, 3036905, 5407630, 2861384, 03657680, 6291883 #### [facility] [address] [place] [address] ALT No additional P-5'-P [Catalytic activity/Vol] 18 Int._Unit/L Normal 6-46 [facility] Comment on above: Performed By: #### 1 0623738, 6884298, 3014468, 4437485, 98594296, 2316510 #### [facility] [address] [place] [address] AST [Catalytic activity/Vol] 20 Int._Unit/L Normal 5-43 [facility] Comment on above: Performed By: #### 1 0352874, 4500993, 4184587, 9012312, 03782036, 0128863 #### [facility] [address] [place] [address] Bilirubin [Mass/Vol] 0.1 mg/dL Normal 0.0-1.1 [facility] Comment on above: Performed By: #### 1 1541746, 5155874, 4185262, 8905950, 08739341, 7600114 #### [facility] [address] [place] [address] Creatinine [Mass/Vol] 0.6 mg/dL Normal 0.5-1.3 [facility] Comment on above: Performed By: #### 1 3944451, 8407397, 2861128, 4003464, 62837303, 4385278 #### [facility] [address] [place] [address] Globulin (S) [Mass/Vol] 3.2 g/dL Normal 1.4-4.0 [facility] Comment on above: Performed By: #### 1 9699495, 2298248, 2993273, 9827323, 33874686, 5614462 #### [facility] [address] [place] [address] Protein [Mass/Vol] 7.3 g/dL Normal 6.0-7.8 [facility] Comment on above: Performed By: #### 1 3630747, 1665656, 4454018, 5454601, 28923904, 2047138 #### [facility] [address] [place] [address] Urea nitrogen [Mass/Vol] 15 mg/dL Normal 5-21 [facility] Comment on above: Performed By: #### 1 5173171, 1205385, 6360090, 9699621, 24926246, 7837852 #### [facility] [address] [place] [address] Urea nitrogen/Creatinine [Mass ratio] 25 No Units High 10-20 [facility] Comment on above: Performed By: #### 1 6435940, 5713324, 7988747, 4060188, 22952118, 0426195 #### [facility] [address] [place] [address] Anion gap [Moles/Vol] 13 mmol/L Normal 6-16 [facility] Comment on above: Performed By: #### 1 8794594, 9895304, 1616964, 7888062, 66546618, 7913372 #### [facility] [address] [place] [address] Calcium [Mass/Vol] 9.3 mg/dL Normal 8.9-11.1 [facility] Comment on above: Performed By: #### 1 4939735, 3053653, 5519402, 0752012, 47169860, 6731137 #### [facility] [address] [place] [address] Chloride [Moles/Vol] 107 mmol/L Normal 101-111 [facility] Comment on above: Performed By: #### 1 8735900, 1946812, 3861259, 7114923, 40514796, 8141008 #### [facility] [address] [place] [address] CO2 [Moles/Vol] 23 mmol/L Normal 21-31 [facility] Comment on above: Performed By: #### 1 3179778, 0563504, 8840892, 2021800, 47303667, 4532526 #### [facility] [address] [place] [address] Glucose [Mass/Vol] 91 mg/dL Normal 55-199 [facility] Comment on above: Result Comment: If t his glucose result represents a fasting glucose, interpretation should refer to the following reference range: 55-99 mg/dL Performed By: #### 1 5239620, 9043473, 8055115, 3926197, 30817021, 9408521 #### [facility] [address] [place] [address] Potassium [Moles/Vol] 3.6 mmol/L Normal 3.5-5.3 [facility] Comment on above: Performed By: #### 1 8725703, 4704603, 0847070, 6598577, 90835647, 4704683 #### [facility] [address] [place] [address] Sodium [Moles/Vol] 139 mmol/L Normal 135-145 [facility] Comment on above: Performed By: #### 1 0117233, 9634407, 2518885, 5208950, 67417754, 6735825 #### [facility] [address] [place] [address] Consent for Treatmenton 05-16 Consent for Treatment [id number] .00CD:127 Normal [facility] ED Clinical Summaryon 2022 ED Clinical Summary [facility] [address] [place], [place] [address] ED Clinical Summary Person Information Name: SHAZIA CHOU [facility] Age: 32 Years : 1990 Sex: Female Language: Djiboutian PCP: Jennie Ames DO Marital Status: Phone: [phone] MRN: Visit Id: Visit Reason: Headache; HEADACHE Speciality: Acuity: 3 Enc Type: Emergency Med Service: Emergency Arrival: 06/09/2023 15:33:36 Discharge: 06/09/2023 18:42:16 LOS: 000 03:09 Checkin: 06/09/2023 15:33:36 Checkout: 06/09/2023 18:42:16 Dispo Type: Home (Routine DC) EVENTS: Event Name Event Status Request Date/Time Start Date/Time Complete Date/Time Arrive Complete 06/09/2023 15:33:36 06/09/2023 15:33:36 06/09/2023 15:33:36 Document Home Meds Request 06/09/2023 15:33:36 Triage Complete 06/09/2023 15:33:36 06/09/2023 15:41:39 06/09/2023 15:41:39 Bed Assign Complete 06/09/2023 15:38:52 06/09/2023 15:38:52 06/09/2023 15:38:52 Dr Exam Complete 06/09/2023 15:38:52 06/09/2023 15:44:59 06/09/2023 15:44:59 RN Exam Complete 06/09/2023 15:38:52 06/09/2023 15:58:43 06/09/2023 15:58:43 Registration Complete 06/09/2023 15:44:59 06/09/2023 16:05:01 06/09/2023 16:05:01 Dr Exam Complete 06/09/2023 15:53:05 06/09/2023 15:53:05 06/09/2023 15:53:05 Pending Labs Complete 06/09/2023 16:00:36 06/09/2023 17:58:16 Lab Complete 06/09/2023 16:00:36 06/09/2023 17:58:16 Urine Collect Complete 06/09/2023 16:00:36 06/09/2023 17:58:16 Patient Care Complete 06/09/2023 16:00:36 06/09/2023 16:24:23 Meds Admin Request 06/09/2023 16:00:36 Reg Complete Request 06/09/2023 16:05:01 Reg Bed Request Complete 06/09/2023 16:05:01 06/09/2023 16:05:01 06/09/2023 16:05:01 Pending Labs Complete 06/09/2023 16:21:32 06/09/2023 16:21:32 06/09/2023 16:43:11 Lab Complete 06/09/2023 16:21:32 06/09/2023 16:21:32 06/09/2023 16:43:11 Pending Labs Complete 06/09/2023 16:22:49 06/09/2023 16:22:49 06/09/2023 16:43:11 Lab Complete 06/09/2023 16:22:49 06/09/2023 16:22:49 06/09/2023 16:43:11 Pending Labs Complete 06/09/2023 16:26:19 06/09/2023 16:26:19 06/09/2023 16:26:27 Lab Complete 06/09/2023 16:26:19 06/09/2023 16:26:19 06/09/2023 16:26:27 Discharge Complete 06/09/2023 18:34:21 06/09/2023 18:42:22 06/09/2023 18:42:22 Transfer Complete 06/09/2023 18:42:22 06/09/2023 18:42:22 06/09/2023 18:42:22 ADDRESS: [address] [place] [phone] PHYS DOC NOTES: MEDICAL INFORMATION: Prescriptions Given: Medications to Continue with No Changes Other Medications acetaminophen (Tylenol) 325 Milligram By Mouth every 4 hours as needed as needed for pain. acetaZOLAMIDE (acetaZOLAMIDE 500 mg oral capsule, extended release) 1 Capsules By Mouth 2 times a day. brexpiprazole (Rexulti 3 mg oral tablet) 1 Tablets By Mouth every day. calcium citrate (calcium (as calcium citrate) 200 mg oral tablet) By Mouth 2 times a day. duloxetine (Cymbalta) 60 Milligram By Mouth 2 times a day. per dr chaparro. gabapentin (gabapentin 300 mg Cap) 1 Capsules By Mouth 2 times a day. lisinopril (lisinopril 5 mg Tab) 1 Tablets By Mouth every day. Refills: 5. multivitamin with minerals (Multi-Day Plus Minerals) By Mouth every day. ondansetron (Zofran 8 mg Tab) 1 Tablets By Mouth 2 times a day. Refills: 1. pantoprazole (Pantoprazole [address] Tab) 1 Tablets By Mouth every day. trazodone 100 Milligram By Mouth once a day (at bedtime). PATIENT EDUCATION INFORMATION: Instructions: Paresthesia, Kpah-ui-Vnua; Migraine Headache, Ycox-qm-Jqkl Follow up: With: Address: When: [facility] In 3 days 06/12/2023 With: Address: When: Jennie De La Paz, Mic C, [facility] [address] [id number] [facility] (1) In 3 days 06/12/2023 DIAGNOSIS: 1:Headache; 2:Paresthesia of arm Normal [facility] ED Patient Education Noteon 06-09-2023 ED Patient Education Note Neurology Paresthesia Paresthesia is a burning or prickling feeling. This feeling can happen in any part of the body. It often happens in the hands, arms, legs, or feet. Usually, it is not painful. In most cases, the feeling goes away in a short time and is not a sign of a serious problem. If you have paresthesia that lasts a long time, you need to see your doctor. Follow these instructions at home: Nutrition Eat a healthy diet. This includes: ? Eating foods that are high in fiber. These include beans, whole grains, and fresh fruits and vegetables. ? Limiting foods that are high in fat and sugar. These include fried or sweet foods. Alcohol use ? Do not drink alcohol if: ? Your doctor tells you not to drink. ? You are , may be , or are planning to become . ? If you drink alcohol: ? Limit how much you have to: ? 0?1 drink a day for women. ? 0?2 drinks a day for men. ? Know how much alcohol is in your drink. In the [place] one drink equals one 12 oz bottle of beer (355 mL), one 5 oz glass of wine (148 mL), or one 1? oz glass of hard liquor (44 mL). General instructions ? Take oemg-ylk-wanxdto and prescription medicines only as told by your doctor. ? Do not smoke or use any products that contain nicotine or tobacco. If you need help quitting, ask your doctor. ? If you have diabetes, work with your doctor to make sure your blood sugar stays in a healthy range. ? If your feet feel numb: ? Check for redness, warmth, and swelling every day. ? Wear padded socks and comfortable shoes. These help protect your feet. ? Keep all follow-up visits. Contact a doctor if: ? You have paresthesia that gets worse or does not go away. ? You lose feeling (have numbness) after an injury. ? Your burning or prickling feeling gets worse when you walk. ? You have pain or cramps. ? You feel dizzy or you faint. ? You have a rash. Get help right away if: ? You feel weak or have new weakness in an arm or leg. ? You have trouble walking or moving. ? You have problems speaking, understanding, or seeing. ? You feel confused. ? You cannot control when you pee (urinate) or poop (have a bowel movement). These symptoms may be an emergency. Get help right away. Call 911. ? Do not wait to see if the symptoms will go away. ? Do not drive yourself to the hospital. Summary ? Paresthesia is a burning or prickling feeling. It often happens in the hands, arms, legs, or feet. ? In most cases, the feeling goes away in a short time and is not a sign of a serious problem. ? If you have paresthesia that lasts a long time, you need to be seen by your doctor. This information is not intended to replace advice given to you by your health care provider. Make sure you discuss any questions you have with your health care provider. Document Revised: 05/12/2022 Document Reviewed: 05/12/2022 [employer] Patient Education ? 2022 [employer] Migraine Headache A migraine headache is a very strong throbbing pain on one side or both sides of your head. This type of headache can also cause other symptoms. It can last from 4 hours to 3 days. Talk with your doctor about what things may bring on (trigger) this condition. What are the causes? The exact cause of this condition is not known. This condition may be triggered or caused by: ? Drinking alcohol. ? Smoking. ? Taking medicines, such as: ? Medicine used to treat chest pain (nitroglycerin). ? control pills. ? Estrogen. ? Some blood pressure medicines. ? Eating or drinking certain products. ? Doing physical activity. Other things that may trigger a migraine headache include: ? Having a menstrual period. ? . ? Hunger. ? Stress. ? Not getting enough sleep or getting too much sleep. ? Weather changes. ? Tiredness (fatigue). What increases the risk? ? Being 25?55 years old. ? Being female. ? Having a family history of migraine headaches. ? Being . ? Having depression or anxiety. ? Being very overweight. What are the signs or symptoms? ? A throbbing pain. This pain may: ? Happen in any area of the head, such as on one side or both sides. ? Make it hard to do daily activities. ? Get worse with physical activity. ? Get worse around bright lights or loud noises. ? Other symptoms may include: ? Feeling sick to your stomach (nauseous). ? Vomiting. ? Dizziness. ? Being sensitive to bright lights, loud noises, or smells. ? Before you get a migraine headache, you may get warning signs (an aura). An aura may include: ? Seeing flashing lights or having blind spots. ? Seeing bright spots, halos, or zigzag lines. ? Having tunnel vision or blurred vision. ? Having numbness or a tingling feeling. ? Having trouble talking. ? Having weak muscles. ? Some people have symptoms after a migraine headache (postdromal phase), such as: ? Tiredness. (more content not included)... Normal [facility] ED Patient Summaryon 023 ED Patient Summary [address] [address] Patient Discharge Instructions Person Information Name: SHAZIA CHOU Age: 32 Years Arrival Date: 06/09/2023 15:33:36 Discharge Diagnosis: 1:Headache; 2:Paresthesia of arm Primary Care Physician: Jennie Ames DO Provider Information Primary Provider: Alexis Shukla DO Advanced Compressor Operator:None The exam and treatment you received in the Emergency Department were for an urgent problem and are not intended as complete care. It is important that you follow up with a doctor, nurse practitioner, or physician?s purchasing administrative assistant for ongoing care. If your symptoms become worse or you do not improve as expected and you are unable to reach your usual health care provider, you should return to the Emergency Department. We are available 24 hours a day. SHAZIA CHOU has been given the following list of patient education materials, prescriptions and follow-up instructions: Follow-up Instructions: With: Address: When: [facility] In 3 days 06/12/2023 With: Address: When: Jennie Ames [address] [place] , [address] [address] [facility] () In 3 days 06/12/2023 In the event that this physician does not participate in your insurance network, please consult with your insurance company to find a nearby participating provider. Patient Education Materials: Paresthesia, Tiin-vk-Cypy; Migraine Headache, Dbuq-hh-Mwdw A MESSAGE TO ALL PATIENTS REGARDING OPIOIDS PRESCRIPTION OPIOIDS: WHAT YOU NEED TO KNOW Prescription opioids can be used to help relieve afofsszp-pa-wghvga pain and are often prescribed following a surgery or injury, or for certain health conditions. These medications can be an important part of the treatment but also come with serious risks. It is important to work with your healthcare provider to make sure you are getting the safest, most effective care. WHAT ARE THE RISKS AND SIDE EFFECTS OF OPIOID USE? Prescription opioids carry serious risks of addiction and overdose, especially with prolonged use. An opioid overdose, often marked by slowed breathing, can cause sudden . The use of prescription opioids can have a number of side effects as well, even when taken as directed: ? Tolerance?meaning you might need to take more of the medication for the same pain relief ? Physical dependence?meaning you have symptoms of withdrawal when a medication is stopped ? Increased sensitivity to pain ? Constipation ? Nausea, vomiting, and dry mouth ? Sleepiness and dizziness ? Confusion ? Depression ? Low levels of testosterone that can result in lower sex drive, energy, and strength ? Itching and sweating RISKS ARE GREATER WITH: ? History of drug misuse, substance use disorder, or overdose ? Mental health conditions (such as depression or anxiety) ? Sleep apnea ? Older age (65 years and older) ? Avoid alcohol while taking prescription opioids. Also, unless specifically advised by your health care provider, medications to avoid include: ? Benzodiazepines (such as Xanax or Valium) ? Muscle relaxants (such as Soma or Flexeril) ? Hypnotics (such as Ambien or Lunesta) ? Other prescription opioids KNOW YOUR OPTIONS Talk to your health care provider about ways to manage your pain that don?t involve prescription opioids. Some of these options may actually work better and have fewer risks and side effects. Options may include: ? Pain relievers such as acetaminophen, ibuprofen, and naproxen ? Some medication that are also used for depression or seizures ? Physical therapy and exercise ? Cognitive behavioral therapy, a psychological, goal-directed approach, in which patients learn how to modify physical, behavioral, and emotional triggers of pain and stress. IF YOU ARE PRESCRIBED OPIOIDS FOR PAIN: ? Never take opioids in greater amounts or more often than prescribed. ? Follow up with your primary health care provider. o Work together to create a plan on how to manage your pain. o Talk about ways to help manage your pain that don?t involve prescription opioids. o Talk about any and all concerns and side effects. ? Help prevent misuse and abuse o Never sell or share prescription opioids. o Never use another person?s prescription opioids. ? Store prescription opioids in a secure place and out of reach of others (this may include visitors, children, friends, and family). ? Safely dispose of unused prescription opioids: Find your community drug take-back program or your pharmacy mail-back program, or flush them down the toilet, following guidance from the Food and Drug Administration (www.fda.gov/Drugs/Re sourcesForYou). ? Visit www.cdc.gov/drugoverd ose to learn about the risks of opioids abuse and overdose. ? If you believe you may be struggling with addiction, tell (more content not included)... Normal [facility] Ethanolon 06-09-2023 Ethanol [Mass/Vol] mg/dL Normal <=7 [facility] Comment on above: Performed By: #### 1 [id number], 0751228, 4965886, 3604868, 18425260, 4491630 #### [facility] [address] [id number] Salicylateon 06-09-2023 Salicylates [Mass/Vol] mg/dL Low 6-29 [facility] Comment on above: Performed By: #### 1 5390943, 6901321, 6786730, 7116510, 17966884, 4258599 #### [facility] [address] [place] [address] U Drug Screenon 06-09-2023 Amphetamines Screen method >1000 ng/mL Ql (U) Negative Normal Negative [facility] Comment on above: Result Comment: Nega tive Cutoff: <1000 ng/mL Performed By: #### 1 5320882, 9839542, 4696420, 5865295, 75889300, 2746611 #### [facility] [address] [place] [address] Barbiturates Screen Ql (U) Negative Normal Negative [facility] Comment on above: Result Comment: Nega tive Cutoff: <200 ng/mL Performed By: #### 1 8213771, 2292809, 1319130, 0789139, 59507047, 8500941 #### [facility] [address] [place] [address] Benzodiazepines Ql (U) Negative Normal Negative [facility] Comment on above: Result Comment: Nega tive Cutoff: <200 ng/mL Performed By: #### 1 7598004, 8669724, 5827594, 9277676, 85710714, 8271568 #### [facility] [address] [place] [address] Cocaine Ql (U) Negative Normal Negative [facility] Comment on above: Result Comment: Nega tive Cutoff: <300 ng/mL Performed By: #### 1 3230479, 5156755, 6059947, 4223563, 60236301, 6397686 #### [facility] [address] [place] [address] Opiates Screen Ql (U) Negative Normal Negative [facility] Comment on above: Result Comment: Nega tive Cutoff: <300 ng/mL Performed By: #### 1 2963994, 2903280, 6667106, 5744660, 30868976, 3497264 #### [facility] [address] [place] [address] Phencyclidine Screen method >25 ng/mL Ql (U) Negative Normal Negative [facility] Comment on above: Result Comment: Nega tive Cutoff: <25 ng/mL These drug screen results are to be used for medical (i.e., treatment) purposes only. Unconfirmed drug screening results must not be used for non-medical purposes (e.g., employment testing, legal testing). Performed By: #### 1 0977010, 6442223, 6240792, 6229276, 60671514, 2714236 #### [facility] [address] [place] [address] Tetrahydrocannabinol Screen method >50 ng/mL Ql (U) Negative Normal Negative [facility] Comment on above: Result Comment: Nega tive Cutoff: <50 ng/mL Performed By: #### 1 6047569, 0570299, 9804479, 4310866, 17872371, 3371986 #### [facility] [address] [place] [address] UA With Cult Reflexon 2022 Bilirubin Ql (U) Negative Normal Negative [facility] Comment on above: Performed By: #### 1 0302232, 9814990, 5231470, 2475784, 80674397, 6888642 #### [facility] [address] [place] [address] Clarity (U) CLEAR Normal Clear [facility] Comment on above: Performed By: #### 1 6610527, 4662785, 8642222, 5293484, 82631967, 5810289 #### [facility] [address] [place] [address] Color (U) YELLOW Normal Yellow [facility] Comment on above: Performed By: #### 1 3662687, 5417448, 0483662, 2897402, 53488918, 8327572 #### [facility] [address] [place] [address] Crystals LM Ql (Urine sed) Present Normal [facility] Comment on above: Performed By: #### 1 3507509, 3612757, 2904924, 3674311, 58398297, 5116757 #### [facility] [address] [place] [address] Epithelial cells.squamous LM.HPF (Urine sed) [#/Area] 0-2 Normal 0-2 [facility] Comment on above: Performed By: #### 1 0225586, 4143825, 9789346, 8528324, 80558022, 8912389 #### [facility] [address] [place] [address] Glucose Test strip (U) [Mass/Vol] Negative Normal Negative [facility] Comment on above: Performed By: #### 1 2393545, 5923308, 1826448, 6796856, 44061402, 7506486 #### [facility] [address] [place] [address] Hemoglobin Ql (U) Negative Normal Negative [facility] Comment on above: Performed By: #### 1 7027296, 8505968, 0273736, 7597471, 48075909, 9351408 #### [facility] [address] [place] [address] Ketones (U) [Mass/Vol] Negative Normal Negative [facility] Comment on above: Performed By: #### 1 7634694, 2760517, 9077820, 2575445, 94804306, 3604950 #### [facility] [address] [place] [address] [place].plasma/[place]. RBC (Bld) [Mass ratio] 0-3 Normal 0-3 [facility] Comment on above: Performed By: #### 1 6675324, 1100469, 3312697, 7634820, 24517263, 7075456 #### [facility] [address] [place] [address] Nitrite Ql (U) Negative Normal Negative [facility] Comment on above: Performed By: #### 1 1337627, 3615201, 3590117, 6084152, 18592684, 5332113 #### [facility] [address] [place] [address] pH (U) 6.0 [pH] Invalid Interpretation Code 5.0-9.0 [facility] Comment on above: Performed By: #### 1 3879946, 2162963, 0569066, 9964999, 54908353, 1359336 #### [facility] [address] [place] [address] Protein (U) [Mass/Vol] Negative Normal Negative [facility] Comment on above: Performed By: #### 1 5296724, 3583909, 1414302, 7302573, 67109691, 0194431 #### [facility] [address] [place] [address] Specific gravity (U) [Rel density] 1.010 Invalid Interpretation Code 1.005-1.030 [facility] Comment on above: Performed By: #### 1 5628015, 6561176, 3582640, 2068948, 05466307, 3605324 #### [facility] [address] [place] [address] Type of Urine collection method Clean Catch Normal [facility] Comment on above: Performed By: #### 1 1950293, 0584694, 0540337, 9705949, 23924965, 6821574 #### [facility] [address] [place] [address] Urobilinogen Qn (U) 0.2 {Lucila'U}/dL Normal 0.0-1.0 [facility] Comment on above: Performed By: #### 1 2457411, 6457655, 7004953, 3931561, 83448542, 7215538 #### [facility] [address] [place] [address] WBC Auto Ql (U) Negative Normal Negative [facility] Comment on above: Performed By: #### 1 0811491, 8851719, 7172131, 6859442, 00324234, 2901469 #### [facility] [address] [place] [address] WBC LM.HPF (Urine sed) [#/Area] 0-5 Normal 0-5 [facility] Comment on above: Performed By: #### 1 7472060, 0328922, 8740016, 1312804, 47976153, 8053842 #### [facility] [address] [place] [address] eGFRon 06-09-2023 GFR/1.73 sq M.predicted among non-blacks MDRD (S/P/Bld) [Vol rate/Area] 121 mL/min/1.73 m2 Normal >=59 [facility] Comment on above: Order Comment: Order added by Discern Expert. Result Comment: Purchasing Administrative Assistant edgar kidney disease could be indicated at eGFR's of less than 60 mL/min/1.73m2. Kidney failure is indicated at less than 15 mL/min/1.73m2. Performed By: #### 1 4399855, 9907845, 3593396, 8016517, 39406318, 6631592 #### [facility] [address] [place] [address] Vit Aon 03-24-2023 Retinol [Mass/Vol] 42.9 microgram/dL Invalid Interpretation Code 18.9-57.3 [facility] Comment on above: Result Comment: Refe rence intervals for vitamin A determined from [facility] internal studies. Individuals with vitamin A less than 20 ug/dL are considered vitamin A deficient and those with serum concentrations less than 10 ug/dL are considered severely deficient. This test was developed and its performance characteristics determined by [email or web address]. It has not been cleared or approved by the Food and Drug Administration. Performed at: [address] [id number] MD Shorty Rodríguez Performed By: #### 2 135926, 1734322, 4554909, 91457585, 3140983, 3947511, 7238019, 2103291, 5176887, 50480963, 151291629, 2854578, 9261639, 5486065, 881438426, 98900566, 93039717, 68457311 ####[facility] [address] [place] [address] Vit B1on 03-24-2023 Thiamine (Bld) [Moles/Vol] 171.7 nmol/L Invalid Interpretation Code 66.5-200.0 [facility] Comment on above: Result Comment: This test was developed and its performance characteristics determined by [facility]. It has not been cleared or approved by the Food and Drug Administration. Performed at: [address] [id number] MD Shorty Rodríguez Performed By: #### 2 292267, 1117888, 3269310, 02733811, 4569419, 2420560, 9091788, 4700453, 5593378, 30181895, 478667554, 7419761, 8601816, 0370905, 903346749, 18395065, 42049080, 01387238 ####[facility] [address] [place] [address] Zinc Lvlon 03-24-2023 Zinc [Mass/Vol] 85 microgram/dL Invalid Interpretation Code 44115 [facility] Comment on above: Result Comment: This test was developed and its performance characteristics determined by [facility]. It has not been cleared or approved by the Food and Drug Administration. Detection Limit = 5 Performed at: [facility] [id number] MD Shorty Rodríguez Performed By: #### 1 0662220, 4099015, 3686014, 8254421, 19831498, 9876182 #### [facility] [address] [place] [address] PTH Int[place]on 03-20-2023 Parathyrin.intact [Mass/Vol] 17 pg/mL Invalid Interpretation Code 15 [facility] Comment on above: Result Comment: Perf ormed at: [address] [id number] PhD Cordelia Madera Performed By: #### 1 3483543, 3198829, 2471001, 0353502, 35800649, 2343924 #### [facility] [address] [place] [address] Auto Diffon 03-19-2023 Basophils/100 WBC (Bld) 1.1 % Normal 0.0-2.0 [facility] Comment on above: Order Comment: Order Added by Discern Expert. Performed By: #### 2 248239, 7533882, 5801626, 21487255, 6628959, 7775736, 7577287, 7531581, 1670415, 75085577, 995705621, 0331811, 3487826, 0383825, 032712786, 29364956, 49090548, 38858779 ####[facility] [address] [place] [address] Basophils/Leukocytes Auto (Bld) [Pure # fraction] 0.1 E9/L Normal 0.0-0.2 [facility] Comment on above: Order Comment: Order Added by Discern Expert. Performed By: #### 2 683276, 9199949, 2088648, 07483051, 8074245, 0498789, 9454034, 9469913, 8090893, 45880360, 348185008, 8146559, 2529348, 0916288, 377831675, 49217117, 86644301, 29136006 ####[facility] [address] [place] [address] Eosinophils/100 WBC (Bld) 4.1 % Normal 0.0-8.0 [facility] Comment on above: Order Comment: Order Added by Discern Expert. Performed By: #### 2 409644, 2865247, 1595941, 33069103, 5359028, 6259546, 9965119, 9965166, 3863672, 40505141, 605823015, 2371718, 4826352, 7421968, 585183396, 54974977, 22967761, 79938351 ####[facility] [address] [place] [address] Eosinophils/Leukocytes Auto (Bld) [Pure # fraction] 0.4 E9/L Normal 0.0-0.5 [facility] Comment on above: Order Comment: Order Added by Discern Expert. Performed By: #### 2 512506, 1708615, 4076747, 10196473, 9645556, 9694431, 5245008, 4173544, 7254618, 66521098, 626472876, 6067732, 6865426, 4978647, 485004834, 00303993, 66735874, 28351880 ####[facility] [address] [place] [address] Lymphocytes/100 WBC (Bld) 20.5 % Normal 14.0-50.0 [facility] Comment on above: Order Comment: Order Added by Discern Expert. Performed By: #### 2 165017, 6055344, 1056887, 91554960, 2891536, 4835259, 2310570, 5308226, 2769286, 62410964, 330079786, 3690916, 8298225, 9323345, 998416353, 47296989, 57004587, 49200237 ####[facility] [address] [place] [address] Lymphocytes/Leukocytes Auto (Bld) [Pure # fraction] 2.1 E9/L Normal 1.0-4.0 [facility] Comment on above: Order Comment: Order Added by Discern Expert. Performed By: #### 2 900488, 5392156, 6464426, 74770440, 8208284, 0200530, 9206553, 1627550, 5103508, 61025994, 909966116, 1074289, 3398717, 9021802, 169375409, 99460102, 67336649, 89932603 ####[address] [place] [address] Monocytes/100 WBC (Bld) 7.6 % Normal 4.0-14.0 [facility] Comment on above: Order Comment: Order Added by Discern Expert. Performed By: #### 2 841082, 3790199, 5954550, 98566016, 3493679, 8454205, 2495094, 9904925, 8327976, 35729359, 643240323, 7758770, 8717365, 2718971, 721619115, 36045888, 97701660, 06252863 ####[facility] [address] [place] [address] Monocytes/Leukocytes Auto (Bld) [Pure # fraction] 0.8 E9/L Normal 0.2-1.0 [facility] Comment on above: Order Comment: Order Added by Discern Expert. Performed By: #### 2 438221, 6077644, 1771941, 47898555, 5617491, 5150797, 2679176, 9220005, 7471783, 28800222, 136196686, 7179093, 4039454, 0448407, 541736752, 59203919, 44377332, 50296115 ####[facility] [address] [place] [address] Neutrophils/100 WBC (Bld) 66.7 % Normal 36.0-75.0 [facility] Comment on above: Order Comment: Order Added by Discern Expert. Performed By: #### 2 047714, 1998456, 4827348, 07447357, 3985656, 6060759, 8606280, 9947019, 8701545, 69882160, 662872746, 3700294, 9695068, 4098127, 225176573, 26696585, 65919215, 24511046 ####[address] [place] [address] Neutrophils/Leukocytes Auto (Bld) [Pure # fraction] 6.8 E9/L Normal 2.0-7.5 [facility] Comment on above: Order Comment: Order Added by Discern Expert. Performed By: #### 2 074217, 7290641, 4509112, 74840907, 8626069, 6114763, 5107840, 2064730, 2404764, 06169764, 179449425, 5098731, 8334584, 0762474, 104103224, 95119254, 42208705, 05898155 ####[address] [place] [address] CBC w/ Auto Diffon 3 Erythrocyte distribution width (RBC) [Ratio] 16.0 % High 10.9-14.2 [facility] Comment on above: Performed By: #### 2 172748, 5258665, 6197523, 90239142, 8762252, 7165408, 2581067, 4371195, 7201922, 61914141, 751147620, 0325278, 6892610, 7897067, 830744870, 25484500, 23321620, 44159035 ####[address] [place] [address] Hematocrit (Bld) [Volume fraction] 37.1 % Normal 34.0-46.0 [facility] Comment on above: Performed By: #### 2 147156, 6771796, 2481739, 76909288, 6001578, 3613371, 7862708, 4821363, 6699607, 22286762, 500121395, 9997171, 5055964, 6830384, 774614957, 43459218, 61109446, 81252046 ####[facility] [address] [place] [address] Hemoglobin (Bld) [Mass/Vol] 12.6 g/dL Normal 12.0-16.0 [facility] Comment on above: Performed By: #### 2 289417, 2242939, 8222646, 93007350, 2210760, 7139699, 9165123, 5080597, 9365616, 61126828, 786444981, 2286539, 8307507, 7534711, 964586204, 24172343, 87655053, 24792278 ####[facility] [address] [place] [address] MCH (RBC) [Entitic mass] 31.2 pg Normal 27.0-34.0 [facility] Comment on above: Performed By: #### 2 264351, 8338799, 7420338, 91602468, 3322431, 9799760, 0612879, 7734074, 4651589, 76416960, 475705905, 0528935, 2444091, 6210333, 737167635, 30334858, 35692383, 31132013 ####[address] [place] [address] MCHC (RBC) [Mass/Vol] 33.9 g/dL Normal 31.4-36.0 [facility] Comment on above: Performed By: #### 2 629924, 1845299, 2861075, 61637850, 7448672, 9659123, 5356444, 0156651, 1074866, 16510311, 761079218, 3834399, 5663181, 3031793, 581639790, 10586465, 02701941, 74909411 ####[facility] [address] [place] [address] MCV (RBC) [Entitic vol] 92.0 fL Normal 80.0-100.0 [facility] Comment on above: Performed By: #### 2 831193, 1533924, 9766664, 14560248, 4427367, 3001802, 5525734, 9022269, 1249940, 98296670, 747039738, 7027523, 6198249, 4244653, 885140599, 26384996, 73438043, 80899334 ####[address] [address] Platelet mean volume (Bld) [Entitic vol] 9.8 fL Normal 6.4-10.8 [facility] Comment on above: Performed By: #### 2 954052, 5602194, 5498760, 89674683, 6280843, 1447338, 5864555, 4488971, 4319705, 93392966, 535154492, 0767926, 9713295, 8529610, 766279635, 66012921, 22611227, 05070494 ####[address] [address] Platelets (Bld) [#/Vol] 369.0 E9/L Normal 150.0-500.0 [facility] Comment on above: Performed By: #### 2 079709, 3795646, 6597093, 32218139, 9170790, 8812977, 0717599, 6020717, 4519249, 76152887, 241801778, 9228521, 8310882, 5629099, 747362229, 92908240, 09883849, 92362704 ####[address] [address] RBC (Bld) [#/Vol] 4.0 E12/L Low 4.3-5.9 [facility] Comment on above: Performed By: #### 2 362566, 6168300, 2027441, 66945777, 1971665, 1799522, 0225824, 9567866, 0886891, 61421107, 338338864, 9807023, 7243333, 3263595, 553403755, 26897183, 56116594, 30701988 ####[facility] [address] [place] [address] WBC corrected for nucl RBC Auto (Bld) [#/Vol] 10.1 E9/L Normal 4.0-11.0 [facility] Comment on above: Performed By: #### 2 571774, 8883661, 5168927, 29296945, 5959399, 1530808, 6017771, 5977117, 7432337, 18527453, 098859618, 9335801, 6826990, 4723092, 767413151, 54068531, 79138152, 21011607 ####[facility] [address] [place] [address] CHEMISTRYOrdered By: SYSTEM SYSTEM on 03-19-2023 25-hydroxyvitamin D3 [Mass/Vol] 43.1 ng/mL Normal 30.0 - 100.0 ng/mL [facility] Remisol Albumin [Mass/Vol] 4.0 g/dL Normal 3.3 - 5.0 gm/dL [facility] Albumin/Globulin [Mass ratio] 1.2 {ratio} Normal 1.1 - 2.2 [facility] ALP [Catalytic activity/Vol] 61 [iU]/d Normal 21 - 98 Int._Unit/L [facility] ALT No additional P-5'-P [Catalytic activity/Vol] 17 [iU]/d Normal 6 - 46 Int._Unit/L [facility] Anion gap [Moles/Vol] 9 mmol/L Normal 6 - 16 mEq/L [facility] AST [Catalytic activity/Vol] 20 [iU]/d Normal 5 - 43 Int._Unit/L [facility] Bilirubin [Mass/Vol] 0.4 mg/dL Normal 0.0 - 1 .1 mg/dL [facility] Calcium [Mass/Vol] 9.2 mg/dL Normal 8.9 - 11. 1 mg/dL [facility] Chloride [Moles/Vol] 113 mmol/L High 101 - 1 11 mmol/L [facility] Cholesterol [Mass/Vol] 167 mg/dL Normal 120 - 200 mg/dL [facility] Cholesterol in HDL [Mass/Vol] 72 mg/dL Invalid Interpretation Code [facility] Cholesterol in LDL [Mass/Vol] 72 mg/dL Normal <=129mg/dL [facility] Cholesterol in VLDL [Mass/Vol] 14 mg/dL Normal 7 - 40 mg/dL [facility] CO2 [Moles/Vol] 22 mmol/L Normal 21 - 31 mmol/L [facility] Cobalamin (Vitamin B12) [Mass/Vol] 357 pg/mL Normal 50 - 1500 pg/mL [facility] Creatinine [Mass/Vol] 0.7 mg/dL Normal 0.5 - 1.3 mg/dL [facility] Ferritin [Mass/Vol] 6 ng/mL Low 11 - 307 ng/mL [facility] Folate [Mass/Vol] 15.6 ng/mL Normal >=6.7ng/mL [facility] Re misol Free T4 [Mass/Vol] 0.88 ng/dL Normal 0.58 - 1. 64 ng/dL [facility] GFR/1.73 sq M.predicted among non-blacks MDRD (S/P/Bld) [Vol rate/Area] 116 mL/min/1.73 m2 Normal >=59mL/min/ 1.73 m2 FT Chem S Globulin (S) [Mass/Vol] 3.2 g/dL Normal 1.4 - 4.0 gm/dL [facility] Glucose [Mass/Vol] 103 mg/dL Normal 55 - 199 mg/dL [facility] Iron [Mass/Vol] 69 ug/dL Normal 35 - 153 mcg/dL [facility] Iron binding capacity [Mass/Vol] 423 ug/dL High 250 - 400 mcg/dL [facility] Magnesium [Mass/Vol] 2.0 mg/dL Normal 1.3 - 2 .4 mg/dL [facility] Potassium [Moles/Vol] 3.8 mmol/L Normal 3.5 - 5.3 mmol/L [facility] Protein [Mass/Vol] 7.2 g/dL Normal 6.0 - 7.8 gm/dL [facility] Sodium [Moles/Vol] 140 mmol/L Normal 135 - 145 mmol/L [facility] Transferrin [Mass/Vol] 302 mg/dL Normal 200 - 370 mg/dL [facility] Triglyceride [Mass/Vol] 69 mg/dL Normal <=149mg/dL F [facility] Remisol TSH Qn 0.61 m[IU]/L Normal 0.34 - 5.60 mcIU/mL [facility] Urea nitrogen [Mass/Vol] 12 mg/dL Normal 5 - 21 mg/dL [facility] Urea nitrogen/Creatinine [Mass ratio] 17 mg/mg Normal 10 - 20 [facility] CHEMISTRYOrdered By: Torres Ulloa on 03-19-2023 HbA1c (Bld) [Mass fraction] 5.8 % Normal <=5.9% [facility] ChemAutoSS CMPon 03-19-2023 Albumin [Mass/Vol] 4.0 g/dL Normal 3.3-5.0 [facility] Comment on above: Performed By: #### 2 264114, 6688667, 6900183, 67863792, 9908629, 0979933, 8935153, 0006674, 6863088, 84914606, 159750676, 1380474, 1377485, 1282632, 459718808, 99330116, 18326145, 04579006 ####[facility] [address] [place] [address] Albumin/Globulin (S) [Mass conc ratio] 1.2 Normal 1.1-2.2 [facility] Comment on above: Performed By: #### 2 692421, 5408873, 5875939, 59225054, 1500783, 4162810, 6760089, 1842632, 7139358, 24838667, 105553591, 4208967, 6788547, 3811017, 107280360, 57194855, 45371724, 76191076 ####[facility] [address] [place] [address] ALP [Catalytic activity/Vol] 61 Int._Unit/L Normal 21-98 [facility] Comment on above: Performed By: #### 2 823047, 5743593, 6074420, 04846271, 3565788, 8608243, 8779621, 3267261, 2022869, 51172516, 886448318, 9759726, 8946619, 2237648, 873409050, 19491710, 68529799, 14284360 ####[address] [place] [address] ALT No additional P-5'-P [Catalytic activity/Vol] 17 Int._Unit/L Normal 6-46 [facility] Comment on above: Performed By: #### 2 434829, 1575115, 8806691, 42995251, 3685744, 9675556, 9882428, 6640860, 2445398, 76618784, 664088947, 7781996, 7129231, 0962774, 527717612, 52829553, 04826188, 98976364 ####[address] [place] [address] Anion gap [Moles/Vol] 9 mmol/L Normal 6-16 [facility] Comment on above: Performed By: #### 2 141144, 3604754, 3689038, 83233383, 7098153, 4178909, 1889033, 8757409, 4295058, 69847597, 273383902, 4040289, 0798322, 7353005, 966145750, 96299671, 90082299, 25746143 ####[address] [place] [address] AST [Catalytic activity/Vol] 20 Int._Unit/L Normal 5-43 [facility] Comment on above: Performed By: #### 2 379100, 8812351, 5553046, 48329766, 7109864, 2079537, 7194985, 1882884, 7340953, 38140286, 452119896, 4326652, 8648829, 6474100, 409778824, 23007374, 38160156, 02284256 ####[facility] [address] [place] [address] Bilirubin [Mass/Vol] 0.4 mg/dL Normal 0.0-1.1 [facility] Comment on above: Performed By: #### 2 797649, 2487799, 6981314, 42826205, 6113182, 5472635, 7518846, 6168857, 8221825, 14172220, 434779163, 5090529, 4917642, 4446247, 286152798, 83904321, 02151735, 16460407 ####[address] [place] [address] Calcium [Mass/Vol] 9.2 mg/dL Normal 8.9-11.1 [facility] Comment on above: Performed By: #### 2 984971, 2128280, 7772648, 70803218, 5338339, 5230582, 1699964, 8789666, 7817986, 13974919, 255955230, 1072321, 2090402, 5437471, 053055841, 98407504, 09813597, 36050566 ####[facility] [address] [place] [address] Chloride [Moles/Vol] 113 mmol/L High 101-111 [facility] Comment on above: Performed By: #### 2 769855, 9803958, 7094436, 02635364, 0448159, 7806993, 1798122, 7206119, 0609812, 39043247, 955216383, 8964818, 4466407, 8179073, 612579013, 51237604, 49913585, 82282133 ####[facility] [address] [place] [address] CO2 [Moles/Vol] 22 mmol/L Normal 21-31 [facility] Comment on above: Performed By: #### 2 991971, 9826077, 6347793, 36623129, 7299365, 5676749, 8682362, 1197471, 9797735, 23083016, 729916651, 1613866, 9662833, 3602561, 144634453, 10001212, 12925169, 58853945 ####[facility] [address] [place] [address] Creatinine [Mass/Vol] 0.7 mg/dL Normal 0.5-1.3 [facility] Comment on above: Performed By: #### 2 473340, 8516259, 5290867, 27393253, 5753444, 0556115, 2030777, 5425750, 7018981, 42670394, 721712611, 3476832, 4929931, 2000191, 652283836, 71986414, 07362159, 58630666 ####[facility] [address] [place] [address] Globulin (S) [Mass/Vol] 3.2 g/dL Normal 1.4-4.0 [facility] Comment on above: Performed By: #### 2 242735, 1224551, 5766506, 50546488, 0263269, 9444915, 9138405, 9621805, 8338692, 05559588, 940915584, 3529966, 8619232, 9163387, 176628387, 08263287, 94904081, 11767761 ####[facility] [address] [place] [address] Glucose [Mass/Vol] 103 mg/dL Normal 55-199 [facility] Comment on above: Result Comment: If t his glucose result represents a fasting glucose, interpretation should refer to the following reference range: 55-99 mg/dL Performed By: #### 2 176862, 0812384, 2174949, 28499891, 9851976, 3213520, 9325421, 8967972, 8184577, 97614009, 956146055, 9894909, 5942218, 9928208, 602266927, 98316302, 12105504, 92150983 ####[facility] [address] [place] [address] Potassium [Moles/Vol] 3.8 mmol/L Normal 3.5-5.3 [facility] Comment on above: Performed By: #### 2 696652, 5562974, 7650980, 69257758, 6629222, 4256075, 9383146, 1845797, 9555758, 01124648, 462343950, 8278332, 6746403, 8790899, 362317706, 18684188, 83714695, 87654969 ####[facility] [address] [place] [address] Protein [Mass/Vol] 7.2 g/dL Normal 6.0-7.8 [facility] Comment on above: Performed By: #### 2 435052, 9199673, 6643946, 97899557, 5865746, 4654440, 0424412, 5257586, 1142045, 65520524, 373938012, 6103658, 9633349, 8054399, 242728694, 11392896, 64290259, 97462489 ####[facility] [address] [place] [address] Sodium [Moles/Vol] 140 mmol/L Normal 135-145 [facility] Comment on above: Performed By: #### 2 826794, 6730300, 5725161, 02611557, 2067155, 0141566, 1876320, 2636115, 9512763, 71304662, 534164232, 3224308, 0485349, 6672919, 447196189, 60853607, 26223835, 27696743 ####[facility] [address] [place] [address] Urea nitrogen [Mass/Vol] 12 mg/dL Normal 5-21 [facility] Comment on above: Performed By: #### 2 855320, 7565119, 8838616, 84588088, 0365594, 8528988, 1197553, 5248281, 7521889, 40687915, 048607018, 0334990, 6465517, 9290900, 095203559, 21263701, 27083362, 31322023 ####[facility] [address] [place] [address] Urea nitrogen/Creatinine [Mass ratio] 17 No Units Normal 10-20 [facility] Comment on above: Performed By: #### 2 296674, 0605337, 1145143, 83858645, 2339825, 3544468, 1159092, 9875159, 9931145, 76166837, 028113072, 0394105, 5503435, 9031583, 689886368, 44723055, 17390999, 31429024 ####[facility] [address] [place] [address] Consent for Treatmenton Consent for Treatment [id number] [facility] [id number]#1 .00CD:127 Normal [facility] Ferritinon 03-19-2023 Ferritin [Mass/Vol] 6 ng/mL Low 11-307 [facility] Comment on above: Result Comment: NORM ALS MEN <30 YRS 16-132 ng/mL MEN >30 YRS 8-338 ng/mL WOMEN (PREMEN) 6-104 ng/mL WOMEN (POSTMEN) 12-210 ng/mL Performed By: #### 2 403715, 8765325, 3910812, 88037909, 5988895, 4251132, 5567127, 6551465, 9597390, 60076593, 816436414, 7599787, 5670050, 6755121, 247029607, 17545139, 35889215, 97315748 ####[facility] [address] [place] [address] Folateon 03-19-2023 Folate [Mass/Vol] 15.6 ng/mL Normal >=6.7 [facility] Comment on above: Performed By: #### 2 305735, 1280261, 1156154, 92024064, 1604629, 8916713, 1919716, 4334839, 4297286, 25889807, 398247061, 6183690, 5803325, 1122074, 775514310, 84739189, 71184694, 43496639 ####[facility] [address] [place] [address] Free T4on 03-19-2023 Free T4 [Mass/Vol] 0.88 ng/dL Normal 0.58-1.64 [facility] Comment on above: Performed By: #### 2 208295, 0463537, 1099312, 33895951, 8366060, 1605128, 9213746, 3350190, 9328005, 54805234, 337970467, 1447361, 4280139, 4409789, 260154650, 24786200, 56634732, 61859427 ####[facility] [address] [place] [address] HEMATOLOGYOrdered By: SYSTEM SYSTEM on 03-19-2023 Basophils/100 WBC (Bld) 1.1 % Normal 0.0 - 2.0 % [facility] HemeAutoSS Basophils/Leukocytes Auto (Bld) [Pure # fraction] 0.1 E9/L Normal 0.0 - 0.2 E9/L [facility] HemeAutoSS Eosinophils/100 WBC (Bld) 4.1 % Normal 0.0 - 8.0 % [facility] HemeAutoSS Eosinophils/Leukocytes Auto (Bld) [Pure # fraction] 0.4 E9/L Normal 0.0 - 0.5 E9/L [facility] HemeAutoSS Lymphocytes/100 WBC (Bld) 20.5 % Normal 14.0 - 50.0 % [facility] HemeAutoSS Lymphocytes/Leukocytes Auto (Bld) [Pure # fraction] 2.1 E9/L Normal 1.0 - 4.0 E9/L [facility] HemeAutoSS Monocytes/100 WBC (Bld) 7.6 % Normal 4.0 - 14.0 % [facility] HemeAutoSS Monocytes/Leukocytes Auto (Bld) [Pure # fraction] 0.8 E9/L Normal 0.2 - 1.0 E9/L [facility] HemeAutoSS Neutrophils/100 WBC (Bld) 66.7 % Normal 36.0 - 75.0 % [facility] HemeAutoSS Neutrophils/Leukocytes Auto (Bld) [Pure # fraction] 6.8 E9/L Normal 2.0 - 7.5 E9/L [facility] HemeAutoSS HEMATOLOGYOrdered By: Aryan Robert on 03-19-2023 Erythrocyte distribution width (RBC) [Ratio] 16.0 % High 10.9 - 14.2 % [facility] HemeAutoSS Hematocrit (Bld) [Volume fraction] 37.1 % Normal 34.0 - 46.0 % [facility] HemeAutoSS Hemoglobin (Bld) [Mass/Vol] 12.6 g/dL Normal 12.0 - 16.0 gm/dL [facility] HemeAutoSS MCH (RBC) [Entitic mass] 31.2 pg Normal 27.0 - 34.0 pg [facility] HemeAutoSS MCHC (RBC) [Mass/Vol] 33.9 g/dL Normal 31.4 - 36.0 gm/dL [facility] HemeAutoSS MCV (RBC) [Entitic vol] 92.0 fL Normal 80.0 - 100.0 fL [facility] HemeAutoSS Platelet mean volume (Bld) [Entitic vol] 9.8 fL Normal 6.4 - 10.8 fL [facility] HemeAutoSS Platelets (Bld) [#/Vol] 369.0 E9/L Normal 150. 0 - 500.0 E9/L [facility] HemeAutoSS RBC (Bld) [#/Vol] 4.0 E12/L Low 4.3 - 5.9 E12/L [facility] HemeAutoSS WBC corrected for nucl RBC Auto (Bld) [#/Vol] 10.1 E9/L Normal 4.0 - 11.0 E9/L [facility] HemeAutoSS ShsL3pni 03-19-2023 HbA1c (Bld) [Mass fraction] 5.8 % Normal <=5.9 [facility] Comment on above: Performed By: #### 2 921428, 5092174, 7518482, 98209225, 2834164, 3980652, 5082736, 5097083, 7603080, 96071984, 856846874, 3362466, 8156367, 0336247, 703255715, 59814417, 48069718, 63065038 ####[facility] [address] [place] [address] Ironon 03-19-2023 Iron [Mass/Vol] 69 microgram/dL Normal 35-153 [facility] Comment on above: Performed By: #### 2 617982, 0925245, 8903440, 50417952, 9494306, 9232448, 9410485, 7581207, 5481454, 10232449, 740732729, 4685109, 8430650, 4227267, 341869881, 77179612, 55902553, 91659671 ####[facility] [address] [place] [address] Lipid Panelon 03-19-2023 Cholesterol [Mass/Vol] 167 mg/dL Normal 120-200 [facility] Comment on above: Performed By: #### 2 377762, 4258102, 4476237, 82707345, 1948106, 4417685, 7609288, 5652942, 3834983, 09807533, 126729917, 1705334, 2796201, 6162344, 069348025, 40014166, 86400166, 83779179 ####[facility] [address] [place] [address] Cholesterol in HDL [Mass/Vol] 72 mg/dL Invalid Interpretation Code [facility] Comment on above: Result Comment: HDL > or equal to 60 mg/dL: Low cardiovascular risk HDL < 40 mg/dL : High cardiovascular risk Performed By: #### 2 422055, 7641391, 8099795, 93696916, 9443438, 8303691, 0490340, 0258893, 2199327, 57317522, 310550474, 0979412, 6376150, 9109405, 358958889, 64907744, 84810163, 96082283 ####[facility] [address] [place] [address] Cholesterol in LDL [Mass/Vol] 72 mg/dL Normal <=129 [facility] Comment on above: Performed By: #### 2 818638, 2892653, 0692420, 09323727, 1072161, 6184009, 1373801, 9612014, 7139375, 59180928, 856553114, 1918860, 4478137, 7825515, 459530962, 28564883, 47846784, 43607980 ####[facility] [address] [place] [address] Cholesterol in VLDL [Mass/Vol] 14 mg/dL Normal 7-40 [facility] Comment on above: Performed By: #### 2 621584, 5787104, 4737217, 99286662, 1767416, 0362971, 6599155, 6970231, 3158048, 01067685, 128169270, 3095574, 9311610, 8174661, 840097094, 99452059, 03903850, 99101352 ####[facility] [address] [place] [address] Triglyceride [Mass/Vol] 69 mg/dL Normal <=149 [facility] Comment on above: Performed By: #### 2 128599, 4108413, 8742102, 12831802, 4130098, 7450019, 1048396, 4093340, 4965116, 50446630, 409856666, 0723282, 8940804, 5597241, 058876308, 20084136, 20791394, 80190735 ####[facility] [address] [place] [address] Magnesiumon 03-19-2023 Magnesium [Mass/Vol] 2.0 mg/dL Normal 1.3-2.4 [facility] Comment on above: Performed By: #### 2 716781, 8827976, 4040538, 23332104, 2270701, 7042669, 2863792, 8049591, 8374124, 65094919, 611940931, 0477600, 5596206, 7040148, 731735481, 10598721, 23443667, 19898871 ####[facility] [address] [place] [address] Physician Orderon 03-19-2023 Physician Order [id number]# 1.00CD:127 Normal [facility] TIBC Calculatedon 03-19-2023 Iron binding capacity [Mass/Vol] 423 microgram/dL High 250-400 [facility] Comment on above: Performed By: #### 2 990055, 6428162, 5446001, 30034921, 8601559, 7542412, 2632698, 9372521, 9849997, 46074137, 796345239, 5806334, 0491605, 2510022, 423044813, 72294844, 93764808, 93701309 ####[facility] [address] [place] [address] Transferrin [Mass/Vol] 302 mg/dL Normal 200-370 [facility] Comment on above: Performed By: #### 2 513664, 6485342, 1636974, 56531761, 0980190, 8918802, 0669058, 6702876, 7216200, 41193528, 000749352, 3340631, 3545268, 2641129, 202833564, 42906978, 66185816, 07247615 ####[facility] [address] [place] [address] TSHon 03-19-2023 TSH Qn 0.61 m[IU]/L Normal 0.34-5.60 [facility] Comment on above: Performed By: #### 2 191740, 5374689, 3557248, 78586513, 5916948, 8179373, 0086183, 4308330, 6202967, 04763316, 642788852, 9610602, 0452688, 5198879, 237682440, 24198697, 47411497, 48666505 ####[facility] [address] [place] [address] Vit B12on 03-19-2023 Cobalamin (Vitamin B12) [Mass/Vol] 357 pg/mL Normal 50-1500 [facility] Comment on above: Performed By: #### 2 382243, 0081485, 9024474, 95445780, 8705419, 1017508, 4908927, 7221108, 7965602, 20798274, 794173563, 4529764, 1077556, 2862772, 444939424, 55538927, 77690473, 06852376 ####[facility] [address] [place] [address] Vitamin D 25 Hydroxyon 03-19 25-hydroxyvitamin D3 [Mass/Vol] 43.1 ng/mL Normal 30.0-100.0 [facility] Comment on above: Result Comment: Vit alberto D deficiency has been defined as a level of serum 25-OH vitamin D less than 20 ng/mL (1,2) by the [place] [employer] and an Endocrine Society practice guideline. The Endocrine Society further defined vitamin D insufficiency as a level between 21 and 29 ng/mL (2). 1. IOM ([place] of [employer]). 2010. Dietary reference intakes for calcium and D. [place]: The National Academies Press. 2. Willard MF, Luisa NC, Nestor MALDONADO, et al. Evaluation, treatment, and prevention of vitamin D deficiency: an Endocrine Society clinical practice guideline. JCEM. 2010; 96 (7):1911-30. Performed By: #### 2 [id number], [id number], 7674858, [id number], 7335686, 3605564, 1082566, 5924179, 8230449, 40025231, [id number], 0548794, 0835622, 4973541, 302746002, 79899683, 15542745, [id number] ####[facility] [address] [place] [address] eGFRon 03-19-2023 GFR/1.73 sq M.predicted among non-blacks MDRD (S/P/Bld) [Vol rate/Area] 116 mL/min/1.73 m2 Normal >=59 [facility] Comment on above: Order Comment: Order added by Discern Expert. Result Comment: Purchasing Administrative Assistant edgar kidney disease could be indicated at eGFR's of less than 60 mL/min/1.73m2. Kidney failure is indicated at less than 15 mL/min/1.73m2. Performed By: #### 2 [id number], [id number], 9828798, [id number], 0292873, 6611779, 7188696, 8488305, 5907972, 00600274, 893504390, 1148699, 7070102, 9065891, [id number], 04308715, 94782222, 67709545 ####[facility] [address] [place] [address] MRV BRAIN WO/W IVCONon 01-29 MRV BRAIN WO/W IVCON * * *Final Report* * * DATE OF EXAM: Jan 29 2023 1:10PM LN 0336 - MRV BRAIN WO/W IVCON / PROCEDURE REASON: Idiopathic intracranial hypertension * * * * Physician Interpretation * * * * EXAMINATION: MRV BRAIN WO/W IVCON CLINICAL HISTORY: Idiopathic intracranial hypertension. TECHNIQUE: Intracranial 2-D kknd-sk-munmow and postcontrast MRV with post-processing performed at the modality and 2D multiplanar and 3D maximum intensity projections were created, reviewed and archived. Contrast dose: 17 mL Dotarem administered intravenously. MQ: MRAB_4 COMPARISON: None. RESULT: INTRACRANIAL MRV: There is no evidence of significant narrowing, occlusion, or thrombosis of the dural venous sinuses. Note is made of a partially empty sella. IMPRESSION: Unremarkable MRV head with and without contrast. Elastic Attacher Coverstitch: PSCB Transcribe Date/Time: Jan 29 2023 2:40P Dictated by : JENNIFER RUVALCABA MD This examination was interpreted and the report reviewed and electronically signed by: JENNIFER RUVALCABA MD on Jan 29 2023 2:44PM EST [id number] N Normal [facility] Coding Summary.on 01-19-2023 Coding Summary. CD:[id number] W w+PGhlYWQ+PR5WRXWgW65 trGXceL3bU8EUODfZVdyr NXIZHPwMHsFkgnWrKL7on XNjZXJu IC8+UF5nSRRvAzhdfVJjx 9X9wUC3U46brd5iPNzvvW M4JRCdKlDtokrac8qvtQi 6IDcuNmluOyBt XCZghJ37JNZ6wN19Lv57j TAamENfj6ksqHw4HfYzIW QqQAX5vYvkYVate8EjVFG oH90ogSYzv5U6 FLDicEhwoAYyMnEcbIA2t Q9kDVtnwelsq2jkckhaFi t6qm74jOVar5O3nBM3S1O oixN2YQNmsSEc AlpgpJAJnI1zptsak7zmm vzlYzUbJJGdIBo5MOy2BW PurXypJnHfNT66LDI8SWD yinIkN8TtHRGh iKnnAnF5g3F4Ok8VQ4OZP xokA4HWPTBOCLhgvIB+PC 72jq74E4EsYjgeSlf0YKU oWFU0gMX6pP2j ULErJDfax9F7wTK4O8Jnj wGckd4dm3puQFPqPJlyW3 6peVYxj6M9WENkfTT8SNP zxBhjWzPrdM14 Oyc+KRPjhMcoe2TuCugig 2fkm1tvrYg5VwhfZYPotu GnxCkiRNE0q4QuDn7mGCU uhCW0nSS6qG1f TfRyYsQ9DFvuM349DgHry IHxXelmZ72jR1NfyRT+PH AvKzi8YUWakBoqZQ9zD8D hZGRpbmctbGVm vSfpVB6uRTBzgucxICCzc I5hPJAkQ7r6LxKvPaP7LQ ppK7NlGZYqfqwuMk11fY7 aAuDdFnY1FGiz Q2RonxI9DBAdmYFlGHfrP OJ4A94rc1N1CCBpYHTaRP N5jLD6cN2ctCfjwxmdxHL mdDsgdmVydGlj UMriXZhwH778BJKhyEjhB kNvZGluZyBEYXRlOiAgMD UvMDgvMjAyMzwvdGQ+PHR gWMO4tIgrXUFz hPUbMCyyFq2atJebnWhxK B0yRWGexwfwJEWlsM6iDR OzoXVqrLmoYT0bAFMexer wz557SqCvKKP5 UIDgqFUoE2SwfE8eCoErK GBgXUJoL5RrrEQrMQbmC7 62UDjvYvG1DJLevbIvP1X sLWFsaWduOiB0 z9Z9Gq9Ql0EdgqoiT5Fcn WLxVvRuIgewGBg5Y0FcHb wvdHI+TK14NLChTO28SKf 3QUI7tGcmUAvu SQCmF0HhdQ4gVjItJYBgK GRkOyc+PHRhYmxlIHdpZH RoPScxMDAlJyBzdHlsZT0 jOh0wYDSqHZPn vCbmlXOcNgEbj9phQAHbG UdoRP4oiSirW2JbuEG8HS Fga8r1Ep65L70eZ0KxvRY +LRNbbCY2pXV0 vY7tHwWmDqR4OEyoJ934J lJbgSCaGupvc8jnw6nkdU r9HaW2ZULflwZieNieJLW 4a9YtRb71N26o IHdpZHRoPSIxNSUiIHZhb Ipgsk3kkJ1zCw9+PGNvbC G8tKN6eY7bCzGfOcB9IHb xT945KxYpbQMt Yqawi5vho6zklZd5NgBtE CLaszNioKhuKFQ1a5EgFp 65B7LiqWaam0IeCtu7lh2 2sMKqa7O3nEH9 M9TvIUJwkkdbsNHvbHloN G0gTPZqyifuXMHfoI9xPZ BeL6l8MrVbBoK2SQvxT5U tkuG3XTQvlSQg IXZwlKYTkJ2lbajec2opc ubzEhYzNUNpXWe4EBl0XS LwbKpxJrFcNQN3HkS4AMB 4pYKkwE1kjNzi qlbaxN5pUnj+QNC7hVQws ICAHV3fFbfetJP+PHRkIH G9jLkyVVweCVTlwF4tMZV fW0g9NwOmSyY2 KGglB9NtiwX0RKNfuHBqN AUhzHGMvB8bcfzst8igmz udCwIpTKFyCVe9LOy5ORD saWduOiBsZWZ0 JgB1DXJ6qSKiaC9hsMocp hayaG7nBli+QmlydGggRG Q0RJr0Q7DeHbh3RZYywAy mCM2huOIdPKkp Cy9hnMvkwIpwEA1uJRFqg safu954NpBmq8xwMECtlK UgEJlkFRA6R85pm9C2HHP wMKZsEXN3sRV9 rW6fjIkxqafjsCAczCpuu xZgkWrzNBoeYIvvG122LP LjiChhFhSaWCf3I4TdPjt 8FNIxlPjwRA1w aQFdQKrlSi4btUmshXlqD J3lDBRhfopyo724AiVxa7 zgRSLjkQLpUCrbQCA2T37 wx3C0PSGaXYCe KDN8wAQ7dL4jlXfbrcorx GVmdDsgdmVydGljYWwtYW wdG581HLWyjRrzBnQvwJc 9D8KiKfk3QZIo mZxjSG7uyQCiAPbcJh1jn SpobEenPQ0nDUYivabnc2 63JmFty3qvCAZjuKAdNPz uCKT5J36cx8M0 UROgHWFoZVG3dHO7yP8zp GlnbjogbGVmdDsgdmVydG lnEAjsUNcxJ305ZJOwhYt nPlBhdGllbnQg FOjrQYj3S2KvVbhliOR+P N47GMUvJL63yOWizSNcy5 epqRm8FfMsRQYgNDO8jPg mIJrpj2BrHQHm T48bcDPyo1Z5OVXanTtag ADlAcBksSQ9dK4qIPjgdu hjw1nxosepNthtx5bcwe5 9fB81V57vIMil ZHRoPSIzMCUiIHZhbGlnb f8tmU7dCq8+YHHzsJD4tK S6gO0eMJJeOyR4TAvqZ23 9InRvcCIvPjxj m6ndq9baqWm3TbM7VUHfg jRglBedEJA3z7FoBn31O8 9sIHdpZHRoPSIyMCUiIHZ qtAmpxd5tpQ2i Ii8+WNUfkVT2fKJ4zM6tY dEnQhM0AReyQ533PkAnvT MzRbeeH70eH5GxvHY+PHR wYtn3KWSuyLvq ND5jaDMeXRvlAx4uWKY0M pFfQrQqFFndU7LxQEAhbx ycimnlcLQ1OPEmYVOpcQ8 4Ay2rbNvzMZVo wZDOrZ2baxhui5rgmmoxT yClSRLfIHe8JCa9XLZshI tnSxUoORT8MpX4RYN7wXG bkY0pbBuyouvy jY0wC0EnHVVqhbfoPf37q C8yPtYxQbZ9GCsbPhj+Uk HSUEOLSvzoKgCQN0zWNHP WEN72VA78dGWb t3S8vFC9J5NqKLOvgiuka dnvmAN4QGSfEIVzyN32oC JhIEsvEr2fx9J6z210IQQ qYHAzeX76Za9l bOnpQGNjrTSXdU5hqjlze 6xxzvliUqUyCFNrONk4ZF f6UJGivWfhYiAgOLB4HyE 2FYC6wBQjoQ1g tKdhzsiegV4sKwp+MDQvM XViQFm2UNovcWW+PHRkIH L1eNmuYJaqIKFolH2bRZL sV8s0UaQlKzI9 VUgcY8DoZKZqjenjUh58l R0hItYtGxA6LGtlH3Xfgb T7SVPftUPgXAhqPUK9E44 cn5G7QFRpZURr GVZ0yXW3fB2gkPtvcgnvw GVmdDsgdmVydGljYWwtYW hvR008ZDFpoThmAbG8DDx kCMPyMG27GD84 jXCox1X0gAW2K8MeUVBqh eqahchjuNE5ASZvNZGipQ 05wOCiQElbSj6xq4X0x13 9ZVPqTCLuyZ70 Is3exHsgSKItsOIUoA8on ygcr4exlvsfOxToROBlHY u0ATx8NDJoqFuxPbNpRNM 0UcQ2ZYY1gUFy kL1tdQepqtuuvN5jCwh+R gQsWZvwGS19RH88pGSwu9 W1dFI3J3QePAVexvavnsa igEV2GRZdONQx aZ28pFVdQSztZj4fa8R6a 136AGHhLYIkrQ78Xq0waY xcIYCvoZFYmA8siahnz8j vcjogIzAwMDAw TFk0UKb9OIOpuTjwNlDbI GK5UfM2XJX4iJRkdE3wtQ keoxybkQ6sXxm+LU1btmr rztF1FH10NU56 O4VcUmhnsXOulBR+PHRhY mxlIHdpZHRoPScxMDAlJy BtkQesMO4xLd0oTEStLRC vbGxhcHNlOiBj g0tbQYAkZJfzBT0nvQzuQ 8HbaJX5IOOpu4l3Te81M3 3zU3GksTC+JRNggTE4nVJ 2pB0lVuIhDwO9 QDgyD069SpXsxWTnFxsnh 1hyg8zygMv6CjPgJOHwjk OxoXdgIDV8f7WvJz52I00 sIHdpZHRoPSIy FMJaJAGqnSedeo1esT0dA i8+PCBxwNX7vIL5bU2cHz IwIoN2NFgfS770PwOibWZ oOdfvQ50lW4Ba dXA+NZNoGam7BMKvrXitL W0xuSCgZLqjKd9tANA2Ps KdVlGmEVwhL8FzTLMpmcd ovrkjvXN3HDKz GAMrrA91Sv4hyVfmTg4wO HJlCEW9TXQnkYLdR3AkzJ 7jCwStMTMxEHTxT2ZfuUG kJOeyN975WYsj NbF4NRLbihXaO7EnKWNco YogPiY5k0H5Qk9EwUczgX YeCC8iFiXvCTu3M4SrNpw 4PJQtfRhmFA6d fKUvZOgtJn6fjFkikRkeC D7rZSJrczdax579QpXhh2 miVFDxvSVoODxcVHR5K57 zu6W2YEWiLPAu EBG9jDS4zI3xvExualurd GVmdDsgdmVydGljYWwtYW xmN491FISdfFnlRkHQYuy 6X9WrFbk7WHDy wXybHI8jbPFpRAanTs7hi JphmYnqMD1jNSZxlmtlb1 28XiFgg1amELIcjAMwYHo jNDU2M44tm2T4 WAWoKIMpZGV5lCK7yW9lu GlnbjogbGVmdDsgdmVydG xdAUsgHHisH313GHWfpSl gVc8PVwk7L7Ff Fuz8DQTuwVswGW3qnURvL VhlIw9azUbpqWoiRQ9wBX Yfyjzot303BvIxt9zuYKU wcHQgVGltZXM7 A47ak4J0IVGdCXPdLGM4i LA9mR2oeDjkxowdnNBksH rlgoXdqDqpKXswUVosY85 6IHRvcDsnPlBh eWVyOjwvdGQ+WU08hg56G 3MuStweVac1CQBmWFN2fR S8tT5bKEKtLJgkt4V0gNK 3D0FixaAnid6d g5lqYRDw (more content not included)... Normal [facility] C Urineon 01-17-2023 Bacteria identified Cx Nom (U) Microbiology PROCEDURE: Urine Culture [R1] SOURCE: U CleanCatch BODY SITE: COLLECTED DATE/TIME: 01/15/2023 12:51 EDT RECEIVED DATE/TIME: 01/15/2023 13:46 EDT START DATE/TIME: 01/15/2023 13:46 EDT FREE TEXT SOURCE: Monse GERONIMO, Beto Shea PA-C, Beto FINAL REPORTS Final Report [] Verified Date/Time: 01/17/2023 08:10 EDT <10,000 cfu/ml Mixed skin contaminants Performing Locations R1: This test was performed at: [facility], [address] [place] [address], [address]- , , Normal [facility] Comment on above: Performed By: #### 1 [id number], [id number] ####[facility] [id number] [place] [address] Auto Diffon 01-15-2023 Basophils/100 WBC (Bld) 0.9 % Normal 0.0-2.0 [facility] Comment on above: Order Comment: Order Added by Discern Expert. Performed By: #### 1 [id number], 3281558, 4615895, 4413690, 66974678, 7212545 #### [facility] [address] [place] [address] Basophils/Leukocytes Auto (Bld) [Pure # fraction] 0.1 E9/L Normal 0.0-0.2 [facility] Comment on above: Order Comment: Order Added by Discern Expert. Performed By: #### 1 [id number], 6146218, 2381507, 0573017, 40050879, 7471756 #### [facility] [address] [place] [address] Eosinophils/100 WBC (Bld) 1.9 % Normal 0.0-8.0 [facility] Comment on above: Order Comment: Order Added by Discern Expert. Performed By: #### 1 6922461, 0387880, 1867035, 3515295, 44744522, 4844700 #### [facility] [address] [place] [address] Eosinophils/Leukocytes Auto (Bld) [Pure # fraction] 0.2 E9/L Normal 0.0-0.5 [facility] Comment on above: Order Comment: Order Added by Discern Expert. Performed By: #### 1 [id number], 2364090, 3251827, 8305492, 29145580, 2050343 #### [facility] [address] [place] [address]355 Lymphocytes/100 WBC (Bld) 25.5 % Normal 14.0-50.0 [facility] Comment on above: Order Comment: Order Added by Discern Expert. Performed By: #### 1 4299359, 0703532, 4893949, 6605570, 69565660, 1802511 #### [facility] [address] [place] [address] Lymphocytes/Leukocytes Auto (Bld) [Pure # fraction] 2.2 E9/L Normal 1.0-4.0 [facility] Comment on above: Order Comment: Order Added by Discern Expert. Performed By: #### 1 [id number], 7322603, 4959848, 1235036, 23199017, 9986935 #### [facility] [address] [place] [address] 61765 Monocytes/100 WBC (Bld) 7.2 % Normal 4.0-14.0 [facility] Comment on above: Order Comment: Order Added by Discern Expert. Performed By: #### 1 1697637, 7927323, 8190491, 8188796, 62886051, 5297152 #### [facility] [address] [place] [address] Monocytes/Leukocytes Auto (Bld) [Pure # fraction] 0.6 E9/L Normal 0.2-1.0 [facility] Comment on above: Order Comment: Order Added by Discern Expert. Performed By: #### 1 4062233, 8914984, 1690198, 5336924, 51393405, 9121796 #### [facility] [address] [place] [address] Neutrophils/100 WBC (Bld) 64.5 % Normal 36.0-75.0 [facility] Comment on above: Order Comment: Order Added by Discern Expert. Performed By: #### 1 7496143, 9974298, 4424427, 4157060, 10386625, 3004540 #### [facility] [address] [place] [address] Neutrophils/Leukocytes Auto (Bld) [Pure # fraction] 5.6 E9/L Normal 2.0-7.5 [facility] Comment on above: Order Comment: Order Added by Discern Expert. Performed By: #### 1 0731483, 5384447, 4055071, 3200867, 12894684, 5534987 #### [facility] [address] [place] [address] B hCG Qualon 01-15-2023 Beta hCG Ql Negative Normal [facility] Comment on above: Performed By: #### 1 4710303, 0296691, 5204601, 7363392, 03199372, 2867086 #### [facility] [address] [place] [address] BMPon 01-15-2023 Creatinine [Mass/Vol] 0.8 mg/dL Normal 0.5-1.3 [facility] Comment on above: Performed By: #### 1 5398981, 2132003, 6119720, 6203383, 97935996, 8067030 #### [facility] [address] [place] [address] Urea nitrogen [Mass/Vol] 12 mg/dL Normal 5-21 [facility] Comment on above: Performed By: #### 1 4256790, 3008220, 2473926, 0111415, 07565444, 8371921 #### [facility] [address] [place] [address] Urea nitrogen/Creatinine [Mass ratio] 15 No Units Normal 10-20 [facility] Comment on above: Performed By: #### 1 5644325, 3117550, 6341653, 8344882, 14593316, 6341648 #### [facility] [address] [place] [address] Anion gap [Moles/Vol] 12 mmol/L Normal 6-16 [facility] Comment on above: Performed By: #### 1 5407542, 1309171, 4688824, 6405826, 21085359, 5311071 #### [facility] [address] [place] [address] Calcium [Mass/Vol] 8.8 mg/dL Low 8.9-11.1 [facility] Comment on above: Performed By: #### 1 9119817, 8395262, 2320607, 4169085, 51760868, 4590578 #### [facility] [address] [place] [address] Chloride [Moles/Vol] 109 mmol/L Normal 101-111 [facility] Comment on above: Performed By: #### 1 5038557, 1164366, 0288817, 6751177, 78740257, 9332235 #### [facility] [address] [place] [address] CO2 [Moles/Vol] 20 mmol/L Low 21-31 [facility] Comment on above: Performed By: #### 1 8728547, 9555257, 9197774, 3885787, 74066405, 9802466 #### [facility] [address] [place] [address] Glucose [Mass/Vol] 89 mg/dL Normal 55-199 [facility] Comment on above: Result Comment: If t his glucose result represents a fasting glucose, interpretation should refer to the following reference range: 55-99 mg/dL Performed By: #### 1 2046253, 8349609, 9382631, 9808668, 85283563, 7112385 #### [facility] [address] [place] [address] Potassium [Moles/Vol] 3.8 mmol/L Normal 3.5-5.3 [facility] Comment on above: Performed By: #### 1 1336213, 8705312, 0361588, 1082966, 62360905, 1177728 #### [facility] [address] [place] [address] Sodium [Moles/Vol] 137 mmol/L Normal 135-145 [facility] Comment on above: Performed By: #### 1 5050322, 0950549, 4401894, 8155950, 50472844, 0854646 #### [facility] [address] [place] [address] CBC w/ Auto Diffon 3 Erythrocyte distribution width (RBC) [Ratio] 15.4 % High 10.9-14.2 [facility] Comment on above: Performed By: #### 1 0978084, 1467690, 1676276, 0152477, 43001518, 4290451 #### [facility] [address] [place] [address] Hematocrit (Bld) [Volume fraction] 35.5 % Normal 34.0-46.0 [facility] Comment on above: Performed By: #### 1 3351802, 5268244, 0129574, 8927137, 64671087, 1647599 #### [facility] [address] [place] [address] Hemoglobin (Bld) [Mass/Vol] 11.5 g/dL Low 12.0-16.0 [facility] Comment on above: Performed By: #### 1 4737656, 0297431, 2556628, 3113550, 27153091, 9277997 #### [facility] [address] [place] [address] MCH (RBC) [Entitic mass] 30.9 pg Normal 27.0-34.0 [facility] Comment on above: Performed By: #### 1 6767769, 5730111, 6194685, 9626438, 98232294, 6312217 #### [facility] [address] [place], [place] [address] MCHC (RBC) [Mass/Vol] 32.5 g/dL Normal 31.4-36.0 [facility] Comment on above: Performed By: #### 1 3836592, 7036505, 7528205, 0086521, 64163299, 5114297 #### [facility] [address] [place], [place] [address] MCV (RBC) [Entitic vol] 95.0 fL Normal 80.0-100.0 [facility] Comment on above: Performed By: #### 1 9674941, 1923922, 6234019, 5985704, 08494978, 7245355 #### [facility] [address] [place] [address]014 Platelet mean volume (Bld) [Entitic vol] 9.4 fL Normal 6.4-10.8 [facility] Comment on above: Performed By: #### 1 6172794, 8998082, 7538771, 1811754, 59185642, 0571021 #### [facility] [address] [place] [address] Platelets (Bld) [#/Vol] 325.0 E9/L Normal 150.0-500.0 [facility] Comment on above: Performed By: #### 1 6093686, 4400768, 1461881, 8312325, 06865528, 2722569 #### [facility] [address] [place] [address] RBC (Bld) [#/Vol] 3.7 E12/L Low 4.3-5.9 [facility] Comment on above: Performed By: #### 1 6528068, 9464023, 2384229, 4914810, 01011262, 8631712 #### [facility] [address] [place] [address] WBC corrected for nucl RBC Auto (Bld) [#/Vol] 8.8 E9/L Normal 4.0-11.0 [facility] Comment on above: Performed By: #### 1 0454647, 1970693, 3354764, 6775142, 04440044, 2456997 #### [facility] [address] [place] [address] CHEMISTRYOrdered By: SYSTEM SYSTEM on 01-15-2023 Albumin [Mass/Vol] 3.7 g/dL Normal 3.3 - 5.0 gm/dL [facility] Albumin/Globulin [Mass ratio] 1.2 {ratio} Normal 1.1 - 2.2 [facility] ALP [Catalytic activity/Vol] 65 [iU]/d Normal 21 - 98 Int._Unit/L [facility] ALT No additional P-5'-P [Catalytic activity/Vol] 13 [iU]/d Normal 6 - 46 Int._Unit/L [facility] Anion gap [Moles/Vol] 12 mmol/L Normal 6 - 16 mEq/L [facility] AST [Catalytic activity/Vol] 21 [iU]/d Normal 5 - 43 Int._Unit/L [facility] Bilirubin [Mass/Vol] 0.5 mg/dL Normal 0.0 - 1 .1 mg/dL [facility] Bilirubin.direct [Mass/Vol] 0.2 mg/dL Normal 0.1 - 0.4 mg/dL [facility] Bilirubin.indirect [Mass or moles/Vol] 0.3 mg/dL Normal 0.1 - 0.9 mg/dL [facility] Calcium [Mass/Vol] 8.8 mg/dL Low 8.9 - 11. 1 mg/dL [facility] Chloride [Moles/Vol] 109 mmol/L Normal 101 - 1 11 mmol/L [facility] CO2 [Moles/Vol] 20 mmol/L Low 21 - 31 mmol/L [facility] Creatinine [Mass/Vol] 0.8 mg/dL Normal 0.5 - 1.3 mg/dL [facility] Remisol GFR/1.73 sq M.predicted among non-blacks MDRD (S/P/Bld) [Vol rate/Area] 99 mL/min/1.73 m2 Normal >=59mL/min/ 1.73 m2 [facility] Chem S Globulin (S) [Mass/Vol] 3.0 g/dL Normal 1.4 - 4.0 gm/dL [facility] Glucose [Mass/Vol] 89 mg/dL Normal 55 - 199 mg/dL [facility] Potassium [Moles/Vol] 3.8 mmol/L Normal 3.5 - 5.3 mmol/L [facility] Protein [Mass/Vol] 6.7 g/dL Normal 6.0 - 7.8 gm/dL [facility] Sodium [Moles/Vol] 137 mmol/L Normal 135 - 145 mmol/L [facility] Troponin I.cardiac [Mass/Vol] pg/mL Low 10.10 - 27.10 pg/mL [facility]isol Urea nitrogen [Mass/Vol] 12 mg/dL Normal 5 - 21 mg/dL [facility] Remisol Urea nitrogen/Creatinine [Mass ratio] 15 mg/mg Normal 10 - 20 [facility] Consent for Treatmenton Consent for Treatment [id number]#1 .00CD:127 Normal [facility] Discharge Instructionson Discharge Instructions [id number]# 1.00CD:127 Normal [facility] ED Clinical Summaryon 2022 ED Clinical Summary [address] [address] ED Clinical Summary Person Information Name: SHAZIA CHOU [place] Age: 32 Years : 1990 Sex: Female Language: Djiboutian PCP: Jennie Ames DO Marital Status: Phone: [phone] MRN: Visit Id: Visit Reason: Back pain; Chest pain; CHEST & BACK PAIN, DIZZINESS Speciality: Acuity: 3 Enc Type: Emergency Med Service: Emergency Arrival: 01/15/2023 10:47:30 Discharge: 01/15/2023 13:37:14 LOS: 000 02:50 Checkin: 01/15/2023 10:47:30 Checkout: 01/15/2023 13:37:14 Dispo Type: Home (Routine DC) EVENTS: Event Name Event Status Request Date/Time Start Date/Time Complete Date/Time Arrive Complete 01/15/2023 10:47:30 01/15/2023 10:47:30 01/15/2023 10:47:30 Document Home Meds Request 01/15/2023 10:47:30 Triage Complete 01/15/2023 10:47:30 01/15/2023 10:55:34 01/15/2023 10:55:34 Bed Assign Complete 01/15/2023 10:49:05 01/15/2023 10:49:05 01/15/2023 10:49:05 Dr Exam Complete 01/15/2023 10:49:05 01/15/2023 10:54:52 01/15/2023 10:54:52 RN Exam Complete 01/15/2023 10:49:05 01/15/2023 11:11:27 01/15/2023 11:11:27 EKG Complete 01/15/2023 10:50:27 01/15/2023 10:53:37 Registration Complete 01/15/2023 10:53:13 01/15/2023 10:53:13 01/15/2023 10:53:13 Reg Complete Request 01/15/2023 10:53:13 Reg Bed Request Complete 01/15/2023 10:53:13 01/15/2023 10:53:13 01/15/2023 10:53:13 Registration Request 01/15/2023 10:54:52 Dr Exam Complete 01/15/2023 10:54:59 01/15/2023 10:54:59 01/15/2023 10:54:59 Meds Admin Complete 01/15/2023 11:09:50 01/15/2023 11:31:11 Pending Labs Request 01/15/2023 11:09:50 Lab Complete 01/15/2023 11:09:50 01/15/2023 13:09:48 Urine Collect Complete 01/15/2023 11:09:50 01/15/2023 13:09:48 X-Ray Complete 01/15/2023 11:09:50 01/15/2023 11:18:06 01/15/2023 11:55:44 Pending Labs Complete 01/15/2023 11:34:59 01/15/2023 11:34:59 01/15/2023 12:01:01 Lab Complete 01/15/2023 11:34:59 01/15/2023 11:34:59 01/15/2023 12:01:01 Pending Labs Complete 01/15/2023 11:39:58 01/15/2023 11:39:58 01/15/2023 11:40:08 Lab Complete 01/15/2023 11:39:58 01/15/2023 11:39:58 01/15/2023 11:40:08 Wet Read Request 01/15/2023 11:55:44 Pending Labs Collected 01/15/2023 12:57:27 01/15/2023 12:57:27 Lab Collected 01/15/2023 12:57:27 01/15/2023 12:57:27 Discharge Complete 01/15/2023 13:32:40 01/15/2023 13:37:28 01/15/2023 13:37:28 Transfer Complete 01/15/2023 13:37:28 01/15/2023 13:37:28 01/15/2023 13:37:28 ADDRESS: [address] [place] [phone] [facility] DOC NOTES: MEDICAL INFORMATION: Prescriptions Given: Medications to Continue with No Changes Other Medications acetaminophen (Tylenol) 325 Milligram By Mouth every 4 hours as needed as needed for pain. acetaZOLAMIDE (acetaZOLAMIDE 500 mg oral capsule, extended release) 1 Capsules By Mouth 2 times a day. brexpiprazole (Rexulti 3 mg oral tablet) 1 Tablets By Mouth every day. calcium citrate (calcium (as calcium citrate) 200 mg oral tablet) By Mouth 2 times a day. duloxetine (Cymbalta) 60 Milligram By Mouth 2 [address] chaparro. gabapentin (gabapentin 300 mg Cap) 1 Capsules By Mouth 2 times a day. lisinopril (lisinopril 5 mg Tab) 1 Tablets By Mouth every day. Refills: 5. multivitamin with minerals (Multi-Day Plus Minerals) By Mouth every day. ondansetron (Zofran 8 mg Tab) 1 Tablets By Mouth 2 times a day. Refills: 1. pantoprazole (Pantoprazole [address] Tab) 1 Tablets By Mouth every day. trazodone 100 Milligram By Mouth once a day (at bedtime). PATIENT EDUCATION INFORMATION: Instructions: Nonspecific Chest Pain, Adult Follow up: With: Address: When: Jennie Ames [address], [facility] C, [address] [id number] [facility] (1) In 3 days 01/18/2023 DIAGNOSIS: Chest pain Normal [facility] ED Note-Physicianon 01-16-20 ED Note-Physician Basic Information Time Seen: Beto Shea PA-C 01/15/2023 10:54 Chief Complaint pt reports she has had cp/back pain for a few dys now. states she has been shaky for awhile now . pt denies any sob o n/v/d. pt states she only came in today because I was out this way. I'm bad at taking care of myself History of Present Illness 32-year-old female comes to the ED for evaluation of generalized illness. She states over the last couple of days she is felt generally unwell with some shakiness, chest pain, weakness fatigue. She denies any shortness of breath cough or congestion. No fever, chills, nausea or vomiting. No abdominal pain. No urinary complaints. No concern for of previous hysterectomy. No prior treatments. Review of Systems A 10 point review of systems is negative except as noted above. Medical and Surgical History: Reviewed and noted Social history: Lives at home Tobacco: Denies Physical Exam Vitals & Measurements T: 36.9 ?C(Oral) HR: 78(Peripheral) RR: 18 BP: 122/99 SpO2: 100% HT: 170 cm WT: 84 kg BMI: 29.07 Nurses notes and vital signs reviewed and patient is not hypoxic. General: The patient appears well, resting comfortably. Skin: Warm, dry. Head: Atraumatic. Neck: No JVD. Eye: Normal conjunctiva. Ears, Nose, Mouth, and Throat: Moist mucous membranes. Cardiovascular: Strong distal pulses. Chest wall: Respiratory: Respirations are nonlabored. Back: Normal range of motion. Musculoskeletal: Normal ROM with no gross deformity. Gastrointestinal: Soft nontender Urological: Neurological: Awake and alert. No focal deficits. Follows commands. Psychiatric: Cooperative. Medical Decision Making Patient appears well on examination. She is resting comfortably. She has no PE risk factors. Her cardiac work-up was negative. EKG with no ischemic changes. Chest x-ray shows no acute findings. Her heart score is less than 4. She is safe for discharge home with outpatient follow-up. Patient was encouraged to return to the ED if symptoms worsen or change. Assessment/Plan Chest pain (R07.9: Chest pain, unspecified) Orders: ketorolac, 30 mg = 1 mL, Injection, IV Push, Once, Stop date 01/15/23 11:09:00 EDT, STAT, Start date 01/15/23 11:09:00 EDT, 01/15/23 11:09:00 EDT Automated Diff Basic Metabolic Panel Beta hCG Qual CBC w/ Auto Diff eGFR Hepatic Function Panel Troponin 0 Hr. Troponin 3 Hr. Troponin 6 Hr. Troponin 9 Hr. UA With Cult Reflex Urine Culture XR Chest Single View Medications Administered Given ketorolac 30 mg/mL Inj 1 mL, 30 mg, IV Push Disposition Plan Patient Discharge Condition Disposition: Discharged home Condition: Improved and stable Counseled: Patient and/or family were counseled to workup, results, treatment plan and follow-up recommendations Discharge Prescription List Prescriptions No active prescription medications Follow-up With When Contact Information Jennie Ames In 3 days 01/18/2023 EDT [address], Mic C, [address] [place] [id number]- Business (1) Additional Instructions: Patient Education Nonspecific Chest Pain, Adult Attestation Patient seen and evaluated by the physician purchasing administrative assistant. Attending physician was present in the emergency department and supervised care. This visit was performed by both the physician and an APC. I performed all aspects of the MDM as documented. This report was transcribed using voice recognition software. Every effort was made to ensure accuracy, however, inadvertently computerized cement conveyor operator mistakes may be present. Appropriate healthcare PPE was used in evaluating this patient. The patient was placed in a mask. The healthcare provider was wearing mask, gloves, and utilizing proper hand hygiene. All equipment was properly cleansed. Problem List/Past Medical History Ongoing Alcohol abuse Bipolar disorder Borderline personality disorder Headache after spinal puncture History of bypass of stomach Hypertension Left breast mass Pancreatic mass Smoker Vitamin D deficiency Historical Procedure/Surgical History Hysterectomy (12/05/2022), Endoscopic plantar fasciotomy (02/16/2020), Endoscopic plantar fasciotomy (06/02/2019), LEFT ELBOW ULNAR NERVE DECOMPRESSION (02/11/2019), x3, Foot, Gastric bypass operation, History of tubal ligation, Lumbar puncture to lower intracranial pressure. Medications Inpatient No active inpatient medications Home acetaZOLAMIDE 500 mg oral capsule, extended release, 500 mg= 1 cap(s), Oral, BID calcium (as calcium citrate) 200 mg oral tablet, Oral, BID Cymbalta, 60 mg, Oral, BID gabapentin 300 mg Cap, 300 mg= 1 cap(s), Oral, BID lisinopril 5 mg Tab, 5 mg= 1 tab(s), Oral, Daily, 5 refills Multi-Day Plus Minerals, Oral, Daily Pantoprazole [address] Tab, 40 mg= 1 tab(s), Oral, Daily Rexulti 3 mg oral tablet, 3 mg= 1 tab(s), Oral, Daily trazodone, 100 mg, Oral, Once a day (at bedti (more content not included)... Normal [facility] Comment on above: Result Comment: Elec tronically Signed By: Beto Shea PA-C\.br\Date and Time Signed: 01/15/23 13:34 EDT\.br\Electronically Co-Signed By: Bakari Chester DO\.br\Date and Time Co-Signed: 01/15/23 15:49 EDT ED Patient Education Noteon 01-15-2023 ED Patient Education Note Pulmonary Medicine Nonspecific Chest Pain, Adult Chest pain is an uncomfortable, tight, or painful feeling in the chest. The pain can feel like a crushing, aching, or squeezing pressure. A person can feel a burning or tingling sensation. Chest pain can also be felt in your back, neck, jaw, shoulder, or arm. This pain can be worse when you move, sneeze, or take a deep breath. Chest pain can be caused by a condition that is life-threatening. This must be treated right away. It can also be caused by something that is not life-threatening. If you have chest pain, it can be hard to know the difference, so it is important to get help right away to make sure that you do not have a serious condition. Some life-threatening causes of chest pain include: ? Heart attack. ? A tear in the body's main blood vessel (aortic dissection). ? Inflammation around your heart (pericarditis). ? A problem in the lungs, such as a blood clot (pulmonary embolism) or a collapsed lung (pneumothorax). Some non life-threatening causes of chest pain include: ? Heartburn. ? Anxiety or stress. ? Damage to the bones, muscles, and cartilage that make up your chest wall. ? Pneumonia or bronchitis. ? Shingles infection (varicella-zoster virus). Your chest pain may come and go. It may also be constant. Your health care provider will do tests and other studies to find the cause of your pain. Treatment will depend on the cause of your chest pain. Follow these instructions at home: Medicines ? Take luri-bjy-souoinh and prescription medicines only as told by your health care provider. ? If you were prescribed an antibiotic medicine, take it as told by your health care provider. Do not stop taking the antibiotic even if you start to feel better. Activity ? Avoid any activities that cause chest pain. ? Do not lift anything that is heavier than 10 lb (4.5 kg), or the limit that you are told, until your health care provider says that it is safe. ? Rest as directed by your health care provider. ? Return to your normal activities only as told by your health care provider. Ask your health care provider what activities are safe for you. Lifestyle ? Do not use any products that contain nicotine or tobacco, such as cigarettes, e-cigarettes, and chewing tobacco. If you need help quitting, ask your health care provider. ? Do not drink alcohol. ? Make healthy lifestyle changes as recommended. These may include: ? Getting regular exercise. Ask your health care provider to suggest some exercises that are safe for you. ? Eating a heart-healthy diet. This includes plenty of fresh fruits and vegetables, whole grains, low-fat (lean) protein, and low-fat dairy products. A dietitian can help you find healthy eating options. ? Maintaining a healthy weight. ? Managing any other health conditions you may have, such as high blood pressure (hypertension) or diabetes. ? Reducing stress, such as with yoga or relaxation techniques. General instructions ? Pay attention to any changes in your symptoms. ? It is up to you to get the results of any tests that were done. Ask your health care provider, or the department that is doing the tests, when your results will be ready. ? Keep all follow-up visits as told by your health care provider. This is important. ? You may be asked to go for further testing if your chest pain does not go away. Contact a health care provider if: ? Your chest pain does not go away. ? You feel depressed. ? You have a fever. ? You notice changes in your symptoms or develop new symptoms. Get help right away if: ? Your chest pain gets worse. ? You have a cough that gets worse, or you cough up blood. ? You have severe pain in your abdomen. ? You faint. ? You have sudden, unexplained chest discomfort. ? You have sudden, unexplained discomfort in your arms, back, neck, or jaw. ? You have shortness of breath at any time. ? You suddenly start to sweat, or your skin gets clammy. ? You feel nausea or you vomit. ? You suddenly feel lightheaded or dizzy. ? You have severe weakness, or unexplained weakness or fatigue. ? Your heart begins to beat quickly, or it feels like it is skipping beats. These symptoms may represent a serious problem that is an emergency. Do not wait to see if the symptoms will go away. Get medical help right away. Call your local emergency services (911 in the [place] Do not drive yourself to the hospital. Summary ? Chest pain can be caused by a condition that is serious and requires urgent treatment. It may also be caused by something that is not life-threatening. ? Your health care provider may do lab tests and other studies to find the cause of your pain. ? Follow your health care provider's instructions on taking medicines, making lifestyle changes, and getting emergency treatment if symptoms become worse. ? Keep all follow-up visits as told by your (more content not included)... Normal [facility] ED Patient Summaryon 023 ED Patient Summary [address] [address] Patient Discharge Instructions Person Information Name: SHAZIA CHOU Age: 32 Years Arrival Date: 01/15/2023 10:47:30 Discharge Diagnosis: Chest pain Primary Care Physician: Jennie Ames DO Provider Information Primary Provider: Bakari Chester DO Advanced Compressor Operator:Beto Shea PA-C The exam and treatment you received in the Emergency Department were for an urgent problem and are not intended as complete care. It is important that you follow up with a doctor, nurse practitioner, or physician?s purchasing administrative assistant for ongoing care. If your symptoms become worse or you do not improve as expected and you are unable to reach your usual health care provider, you should return to the Emergency Department. We are available 24 hours a day. SHAZIA CHOU has been given the following list of patient education materials, prescriptions and follow-up instructions: Follow-up Instructions: With: Address: When: Jennie Ames [address] [place] [address], [facility], [facility] [address] [place] [address] Business (1) In 3 days 01/18/2023 In the event that this physician does not participate in your insurance network, please consult with your insurance company to find a nearby participating provider. Patient Education Materials: Nonspecific Chest Pain, Adult A MESSAGE TO ALL PATIENTS REGARDING OPIOIDS PRESCRIPTION OPIOIDS: WHAT YOU NEED TO KNOW Prescription opioids can be used to help relieve lofibnef-pq-ogvbuc pain and are often prescribed following a surgery or injury, or for certain health conditions. These medications can be an important part of the treatment but also come with serious risks. It is important to work with your healthcare provider to make sure you are getting the safest, most effective care. WHAT ARE THE RISKS AND SIDE EFFECTS OF OPIOID USE? Prescription opioids carry serious risks of addiction and overdose, especially with prolonged use. An opioid overdose, often marked by slowed breathing, can cause sudden . The use of prescription opioids can have a number of side effects as well, even when taken as directed: ? Tolerance?meaning you might need to take more of the medication for the same pain relief ? Physical dependence?meaning you have symptoms of withdrawal when a medication is stopped ? Increased sensitivity to pain ? Constipation ? Nausea, vomiting, and dry mouth ? Sleepiness and dizziness ? Confusion ? Depression ? Low levels of testosterone that can result in lower sex drive, energy, and strength ? Itching and sweating RISKS ARE GREATER WITH: ? History of drug misuse, substance use disorder, or overdose ? Mental health conditions (such as depression or anxiety) ? Sleep apnea ? Older age (65 years and older) ? Avoid alcohol while taking prescription opioids. Also, unless specifically advised by your health care provider, medications to avoid include: ? Benzodiazepines (such as Xanax or Valium) ? Muscle relaxants (such as Soma or Flexeril) ? Hypnotics (such as Ambien or Lunesta) ? Other prescription opioids KNOW YOUR OPTIONS Talk to your health care provider about ways to manage your pain that don?t involve prescription opioids. Some of these options may actually work better and have fewer risks and side effects. Options may include: ? Pain relievers such as acetaminophen, ibuprofen, and naproxen ? Some medication that are also used for depression or seizures ? Physical therapy and exercise ? Cognitive behavioral therapy, a psychological, goal-directed approach, in which patients learn how to modify physical, behavioral, and emotional triggers of pain and stress. IF YOU ARE PRESCRIBED OPIOIDS FOR PAIN: ? Never take opioids in greater amounts or more often than prescribed. ? Follow up with your primary health care provider. o Work together to create a plan on how to manage your pain. o Talk about ways to help manage your pain that don?t involve prescription opioids. o Talk about any and all concerns and side effects. ? Help prevent misuse and abuse o Never sell or share prescription opioids. o Never use another person?s prescription opioids. ? Store prescription opioids in a secure place and out of reach of others (this may include visitors, children, friends, and family). ? Safely dispose of unused prescription opioids: Find your community drug take-back program or your pharmacy mail-back program, or flush them down the toilet, following guidance from the Food and Drug Administration (www.fda.gov/Drugs/Re sourcesForYou). ? Visit www.cdc.gov/drugoverd ose to learn about the risks of opioids abuse and overdose. ? If you believe you may be struggling with addiction, tell your health care navigator and ask for guidance or call [facility] National Helpline at 5-179-455-OURL. p Source (more content not included)... Normal [facility] HEMATOLOGYOrdered By: SYSTEM SYSTEM on 01-15-2023 Basophils/100 WBC (Bld) 0.9 % Normal 0.0 - 2.0 % [facility] HemeAutoSS Basophils/Leukocytes Auto (Bld) [Pure # fraction] 0.1 E9/L Normal 0.0 - 0.2 E9/L [facility] HemeAutoSS Eosinophils/100 WBC (Bld) 1.9 % Normal 0.0 - 8.0 % [facility] HemeAutoSS Eosinophils/Leukocytes Auto (Bld) [Pure # fraction] 0.2 E9/L Normal 0.0 - 0.5 E9/L [facility] HemeAutoSS Lymphocytes/100 WBC (Bld) 25.5 % Normal 14.0 - 50.0 % [facility] HemeAutoSS Lymphocytes/Leukocytes Auto (Bld) [Pure # fraction] 2.2 E9/L Normal 1.0 - 4.0 E9/L [facility] HemeAutoSS Monocytes/100 WBC (Bld) 7.2 % Normal 4.0 - 14.0 % [facility] HemeAutoSS Monocytes/Leukocytes Auto (Bld) [Pure # fraction] 0.6 E9/L Normal 0.2 - 1.0 E9/L [facility] HemeAutoSS Neutrophils/100 WBC (Bld) 64.5 % Normal 36.0 - 75.0 % [facility] HemeAutoSS Neutrophils/Leukocytes Auto (Bld) [Pure # fraction] 5.6 E9/L Normal 2.0 - 7.5 E9/L [facility] HemeAutoSS HEMATOLOGYOrdered By: Robin Ulloa on 01-15-2023 Erythrocyte distribution width (RBC) [Ratio] 15.4 % High 10.9 - 14.2 % [facility] HemeAutoSS Hematocrit (Bld) [Volume fraction] 35.5 % Normal 34.0 - 46.0 % [facility] HemeAutoSS Hemoglobin (Bld) [Mass/Vol] 11.5 g/dL Low 12.0 - 16.0 gm/dL [facility] HemeAutoSS MCH (RBC) [Entitic mass] 30.9 pg Normal 27.0 - 34.0 pg [facility] HemeAutoSS MCHC (RBC) [Mass/Vol] 32.5 g/dL Normal 31.4 - 36.0 gm/dL [facility] HemeAutoSS MCV (RBC) [Entitic vol] 95.0 fL Normal 80.0 - 100.0 fL [facility] HemeAutoSS Platelet mean volume (Bld) [Entitic vol] 9.4 fL Normal 6.4 - 10.8 fL [facility] HemeAutoSS Platelets (Bld) [#/Vol] 325.0 E9/L Normal 150. 0 - 500.0 E9/L [facility] HemeAutoSS RBC (Bld) [#/Vol] 3.7 E12/L Low 4.3 - 5.9 E12/L [facility] HemeAutoSS WBC corrected for nucl RBC Auto (Bld) [#/Vol] 8.8 E9/L Normal 4.0 - 11.0 E9/L [facility] HemeAutoSS Hep Func Panelon 01-15-2023 Albumin [Mass/Vol] 3.7 g/dL Normal 3.3-5.0 [facility] Comment on above: Performed By: #### 1 [id number], 4391297, 6495450, 4168790, 67251867, 3638975 #### [facility] [address] [place] [address] Albumin/Globulin (S) [Mass conc ratio] 1.2 Normal 1.1-2.2 [facility] Comment on above: Performed By: #### 1 [id number], 0687180, 5540409, 7943354, 99972892, 2236202 #### [facility] [address] [place] [address] ALP [Catalytic activity/Vol] 65 Int._Unit/L Normal 21-98 [facility] Comment on above: Performed By: #### 1 [id number], 7962572, 6180597, 2284060, 93499181, 2044788 #### [facility] [address] [place] [address] ALT No additional P-5'-P [Catalytic activity/Vol] 13 Int._Unit/L Normal 6-46 [facility] Comment on above: Performed By: #### 1 [id number], 4424587, 5383541, 7761291, 98684023, 6876546 #### [facility] [address] [place] [address] AST [Catalytic activity/Vol] 21 Int._Unit/L Normal 5-43 [facility] Comment on above: Performed By: #### 1 2419903, 2631256, 9052711, 2765529, 69316519, 9799744 #### [facility] [address] [place] [address] Bilirubin [Mass/Vol] 0.5 mg/dL Normal 0.0-1.1 [facility] Comment on above: Performed By: #### 1 0880293, 1410995, 0089732, 9883624, 95194027, 0935643 #### [facility] [address] [place] [address] Bilirubin.direct [Mass/Vol] 0.2 mg/dL Normal 0.1-0.4 [facility] Comment on above: Performed By: #### 1 8080876, 7312875, 5322684, 5207712, 11386916, 2601488 #### [facility] [address] [place] [address] Bilirubin.indirect [Mass or moles/Vol] 0.3 mg/dL Normal 0.1-0.9 [facility] Comment on above: Performed By: #### 1 9579847, 2094006, 7845943, 1138459, 57542213, 2719101 #### [facility] [address] [place] [address] Globulin (S) [Mass/Vol] 3.0 g/dL Normal 1.4-4.0 [facility] Comment on above: Performed By: #### 1 7534068, 1636190, 8980632, 8933436, 36691415, 7336322 #### [facility] [address] [place] [address] Protein [Mass/Vol] 6.7 g/dL Normal 6.0-7.8 [facility] Comment on above: Performed By: #### 1 1024453, 0797576, 3499699, 6845736, 92010250, 0365057 #### [facility] [address] [place] [address] SEROLOGYOrdered By: Yoli Robert on 01-15-2023 Beta hCG Ql Negative (01/15/23 11:31 AM) Normal [facility] Man Sero Troponin 0 Hr.on 01-15-2023 Troponin I.cardiac [Mass/Vol] ng/mL Low 10.10-27.10 [facility] Comment on above: Result Comment: The 95% CI (Confidence Interval) PPV (Positive Predictive Value) for myocardial infarction in females is 38 pg/mL, in males 51 pg/mL. The results should be used in conjunction with clinical conditions of myocardial infarction. (Access High Sensitivity Troponin I Instructions For Use, InRadio, April 2018) Performed By: #### 1 8333855, 7553396, 7372894, 9217704, 49625821, 3613870 #### [facility] [address] [place] [address] UA With Cult Reflexon 2022 Bacteria LM Ql (Urine sed) 1+ /HPF Abnormal Trace [facility] Comment on above: Performed By: #### 1 1168004, 6653090 ####[facility] [address] [place] [address] Bilirubin Ql (U) Negative Normal Negative [facility] Comment on above: Performed By: #### 1 7832897, 5555883 ####[facility] [address] [place] [address] Clarity (U) SL CLOUDY Invalid Interpretation Code [facility] Comment on above: Performed By: #### 1 9394334, 9151190 ####[address] [place] [address] Color (U) YELLOW Normal Yellow [facility] Comment on above: Performed By: #### 1 2861090, 8911738 ####[address] [place] [address] Crystals LM Ql (Urine sed) Present Normal [facility] Comment on above: Performed By: #### 1 5282455, 0937809 ####[facility] [address] [place] [address] Epithelial cells.squamous LM.HPF (Urine sed) [#/Area] 3-4 Normal 0-2 [facility] Comment on above: Performed By: #### 1 5816307, 7607026 ####[facility] [address] [place] [address] Glucose Test strip (U) [Mass/Vol] Negative Normal Negative [facility] Comment on above: Performed By: #### 1 5246055, 5579500 ####[facility] [address] [place] [address] Hemoglobin Ql (U) Negative Normal Negative [facility] Comment on above: Performed By: #### 1 4205096, 4078808 ####[facility] [address] [place] [address] Ketones (U) [Mass/Vol] Negative Normal Negative [facility] Comment on above: Performed By: #### 1 7840060, 8741456 ####[facility] [address] [place] [address] [place].plasma/[place]. RBC (Bld) [Mass ratio] 0-3 Normal 0-3 [facility] Comment on above: Performed By: #### 1 6199848, 7524994 ####[facility] [address] [place] [address] Nitrite Ql (U) Negative Normal Negative [facility] Comment on above: Performed By: #### 1 7268394, 5717012 ####[facility] [address] [place] [address] pH (U) 7.5 [pH] Invalid Interpretation Code 5.0-9.0 [facility] Comment on above: Performed By: #### 1 3578090, 9688272 ####[facility] [address] [place] [address] Protein (U) [Mass/Vol] Negative Normal Negative [facility] Comment on above: Performed By: #### 1 8100329, 4050024 ####[place] [address] Specific gravity (U) [Rel density] 1.015 Invalid Interpretation Code 1.005-1.030 [facility] Comment on above: Performed By: #### 1 6802693, 5820058 ####[place] [address] Type of Urine collection method Clean Catch Normal [facility] Comment on above: Performed By: #### 1 2782791, 0644411 ####[place] [address] Urobilinogen Qn (U) 0.2 {Lucila'U}/dL Normal 0.0-1.0 [facility] Comment on above: Performed By: #### 1 6856268, 2640393 ####[place] [address] WBC Auto Ql (U) 1+ Abnormal Negative [facility] Comment on above: Performed By: #### 1 7772087, 9696209 ####[place] [address] WBC LM.HPF (Urine sed) [#/Area] 0-5 Normal 0-5 [facility] Comment on above: Performed By: #### 1 0815962, 2128683 ####[place] [address] URINALYSISOrdered By: Jacki santana on 01-15-2023 Bacteria LM Ql (Urine sed) 1+ /HPF Invalid Interpretation Code Trace/HPF [facility] UA Auto SS Bilirubin Ql (U) Negative (01/15/23 12:51 PM) Normal Negative [facility] UA Auto SS Clarity (U) SL CLOUDY Invalid Interpretation Code [facility] UA Auto SS Color (U) Yellow (01/15/23 12:51 PM) Normal Yellow [facility] UA Auto SS Crystals LM Ql (Urine sed) Present (01/15/23 12:51 PM) Normal [facility] UA Auto SS Epithelial cells.squamous LM.HPF (Urine sed) [#/Area] 3-4 /HPF Normal 0-2/HPF [facility] UA Aut o SS Glucose Test strip (U) [Mass/Vol] Negative (01/15/23 12:51 PM) Normal Negative [facility] UA Auto SS Hemoglobin Ql (U) Negative (01/15/23 12:51 PM) Normal Negative [facility] UA Auto SS Ketones (U) [Mass/Vol] Negative (01/15/23 12:51 PM) Normal Negative [facility] UA Auto SS [place].plasma/[place]. RBC (Bld) [Mass ratio] 0-3 /HPF Normal 0-3/HPF [facility] UA A uto SS Nitrite Ql (U) Negative (01/15/23 12:51 PM) Normal Negative [facility] UA Auto SS pH (U) 7.5 *NA* (01/15/23 12:51 PM) Invalid Interpretation Code 5.0 - 9.0 [facility] UA Auto SS Protein (U) [Mass/Vol] Negative (01/15/23 12:51 PM) Normal Negative [facility] UA Auto SS Specific gravity (U) [Rel density] 1.015 *NA* (01/15/23 12:51 PM) Invalid Interpretation Code 1.005 - 1.030 [facility] UA Auto SS UA Spec Desc Clean Catch (01/15/23 12:51 PM) Normal [facility] UA Auto SS Urobilinogen Qn (U) 0.8686383 {Lucila'U}/dL Normal 0.0 - 1.0 EU/dL [facility] UA Auto SS WBC Auto Ql (U) 1+ *ABN* (01/15/23 12:51 PM) Invalid Interpretation Code Negative [facility] UA Auto SS WBC LM.HPF (Urine sed) [#/Area] 0-5 /HPF Normal 0-5/HPF [facility] UA Auto SS XR Chest Single Viewon 01-15 XR Chest Single View Exam Date/Time: 01/15/2023 11:55 EDT Reason for Exam: Shortness of breath (SOB) Report IMPRESSION: NO RADIOGRAPHIC EVIDENCE OF ACUTE INTRATHORACIC PROCESS. EXAM: XR Chest Single View History: Shortness of breath Technique: Portable AP view of the chest. Comparison: Chest radiographs 11/21/2022 Findings: The cardiomediastinal silhouette is within normal limits. No pneumothorax, pleural effusion, or consolidation. Bones of the thorax appear intact. Ordering Provider: Beto Shea FINAL REPORT Dictated: 01/15/2023 12:31 pm Rahul Faith DO Signed (Electronic Signature): 01/15/2023 12:31 pm Signed by: Rahul Faith DO Transcribed by: MARCO Technologist: CASSIA Technical Comments Radiation Dose: Ka,r in mGy = na DAP = na Normal [facility] eGFRon 01-15-2023 GFR/1.73 sq M.predicted among non-blacks MDRD (S/P/Bld) [Vol rate/Area] 99 mL/min/1.73 m2 Normal >=59 [facility] Comment on above: Order Comment: Order added by Discern Expert. Result Comment: Purchasing Administrative Assistant edgar kidney disease could be indicated at eGFR's of less than 60 mL/min/1.73m2. Kidney failure is indicated at less than 15 mL/min/1.73m2. Performed By: #### 1 [id number], 6975795, 7587215, 1316033, 60326906, 4405661 #### [facility] [address] [place] [address] IntraOperative Documentson 0 12-11-2022 IntraOperative Documents [id number]# 1.00CD:127 Normal [facility] Coding Summary.on 12-09-2022 Coding Summary. CD:[id number] W w+PGhlYWQ+BE7GFEOmV40 cnPWlcV9fS1RIDDqGHotl CLIMPAgBOsDdfjSkHN6nr XNjZXJu IC8+RX2cMCVmRmyhmTOqm 4P5pYT3U19udh8xNNxbuB E3HANzSrRvommjp1mxnVi 6IDcuNmluOyBt BSFriS79TXD5kN39Hb35r NKpxGKxf2vscPh7KfGqSX IyRYK4fWjeQLmxa1UwMJW sY30ltUPcd1D2 VAHorIljvVLdTwGnoJO7p L4aCHccohzvx5jlakhvGg q8da94lETrl4H2qPE7J8X jyjL4LSZiiUKx EvefeBUDuK0dmplxf8ugg towIsXdYTKnYSk4EAy1JQ AiiEzzYdIxNM99KMJ0HQA wewMxS8XaSKNo tUtaKdQ5n4T3Ek4KN7KHP bzkS2UJOPGVXBnvfDN+PC 69rf60A5IiKjhhDqz9RVB yDRD6zSG7nC7t PWMlRIkwv8E4zWE7R9Afs wIgok2po3dkALRfIHxgX1 8knBDhu0N0YNSweOG1ARK wdMigFhYsbL41 Oyc+NLDsbMqtc2HpMmwyi 1vdr0pgyAy0EzwjRVXjlm DriIokXBQ5a4OiMe8tVHF qrXJ2kPV9eV3u FcQaQdZ8RVvdO762OyKva EXrIordN89zN8PqqLL+PH YwRzw0RQTgkAobAP8eK5W hZGRpbmctbGVm uCyeZW8nLPQprvqlRWCan S0mFESyE8l1QjFrGcH5WA kiR7YoLCYuufzgFz11gX1 oInPtIlO4HNcc J2BahfI0ZQNxqQIqYPasP HM5J17ft9R4KTWrODHoYD X6iTM5dL6ndDgwlmajwPW mdDsgdmVydGlj ANfnQTryO190SVBheVbgI kNvZGluZyBEYXRlOiAgMD MvMjgvMjAyMzwvdGQ+PHR dPTA7fNfrGGIf mSPmRLniQi5gaFlhjDxqK R7sLYMmpzetFEBwgD6pMU DfnEGceKcmEE5wMNLhnnc iw725BlEfRDS0 QHXxeXTlA5TnrY3tEqCyZ QKdLRPfI8IyrGUiEFjaD6 58CZbnHgP1MKIyvuBbT2H sLWFsaWduOiB0 p2V1Im3Sg6YollnpY3Zvq BMaZhJhEyunCDv6H9NeZk wvdHI+XV01VRRsYR06LTq 5GTJ2pCfuICqm BLJnP7EcsW1eYvKgPZDlE GRkOyc+PHRhYmxlIHdpZH RoPScxMDAlJyBzdHlsZT0 wSa2tXSQwDMBu hGmjkQVzUjMpx4ioHHZhD AcsBA7ioKlqU0TweHK7YN Wbo6l6Yd77Z23cF3ImcAT +KEEanSD2gXL4 eG3vNhZtMmA8KYteD061E oPunQCnEwrpc9fqy3pbfX u3FsE8NLLidvXxcGgiRTS 0h9ZxGu65F79c IHdpZHRoPSIxNSUiIHZhb Mkmtc7noO9cRw3+PGNvbC P9eDV7uH7oFhRlLyM0XJg xU131OgZpzLMg Pxxsd4fuj5ywsDu8LrDkC YRuciNemFxrASB7b0XeGu 46I8MslIoto6PuXdn1bs7 3sKTza6V7iBC1 J3EaQPRjtxlkwYTdsRbyG C2eUUJzhhxbMKVviZ8xFW XaF0c3OjLqXnL4ZQweX7N uluO7JFCeyGVw DZMvrLMCxA1sfvflb1saj ghpHpLaJAZjCRa7PHj6ZG ZxbKyuFsNyDUG0LiS7VEG 2aOEsoP4xkBwt pzfasL9jApd+GQV0hIHzy KJUCO6eVbranVI+PHRkIH D3hWoqKAhaPBPfpS2aLDK rG6q3LtLpVmV5 HPnlX2ZwpcU0KAPljAIwB STiaIZUwC9dgihtc7ueij opOnCoIOLyIUh8HMw0BSW saWduOiBsZWZ0 UfK2ETK6dIArkW5roVwjr qdrqZ3gHww+QmlydGggRG O0MLn2F7OcXls7FAOxeAz hQG5fnHDjHPxh Xc3prOcxmKpnLK5gXAAan qujv193QpIuj2lbVWLaqX RvKSphTHZ6U87mi9H2ISB lAXGdECM5mQF0 eG1cbVlkgyvkiGHesJrcj hPmlRfkELzlBFxbC824VR BztOilWjRsKSe2O2TdHec 9LFOpaBxqMG2k lAQuUEahRl9riSrozEnoC Q4aPDCsngkmq062BaPpt7 uxKFXnnATkRAifFQM2U17 fa5U5CLQhKVLx RNM4jFN7jG5axGtaonvus GVmdDsgdmVydGljYWwtYW szG875RVAtwYscGfJngGx 6R7YiMra3COXe jSuiWV2btRNgLWndTx6jw ZcfqFfoDJ5oUXPkvadqt5 86BlLxt2xzGTNhoRXiTKr mWKR7T36zw4G0 NHWoQHYtCRQ7bOY1yQ6le GlnbjogbGVmdDsgdmVydG yyJFiuDAhpT844EEQnpUl nPlBhdGllbnQg XUyrDMf6A6SkVropxGM+P I51JMYnCN83aCYtvWSwt2 lgoVi0BqNsRQIzWIB8iXy rKBznk9BuAZMz D88ifXFpp8C5SGRjbUgjt YAhIlYbuOP7wU7aMIzbqx zng5tevvmxRvumx0ckgn5 6bW32D32bSChr ZHRoPSIzMCUiIHZhbGlnb q7syA0xYs6+GOThhDI9sS X7dE2bTNAnUoF8KIbdY77 9InRvcCIvPjxj w0efv9ejhKx0WlA3ZSXmg uCexWbqEFO0p9VmPa66W0 9sIHdpZHRoPSIyMCUiIHZ yjZitoy3nfA4j Ii8+CEWopWO1xHQ3rW8pR pNoRoT8JEymY117YnIbcI AcNktdC98gI7SpsKO+PHR jUvj0MRXbwZcn FZ2ubMJiTLthDj3aRQF0G pUzWaYrXQseY9EzBZJuxy rrhtuoiKD0BXRrIOPutE0 6Lp5bjZeoABAt mVJQaI8cvswbt5rnodcdT yZqTUKlLEg1DAq2ENLogN dnQuMpUOK9QqN8YYL1uWI umL0uuNerndql eX1zU9YzHWBprjatBp17d M8sZaElAnR0FFayJfi+Uk GJECOHCkinEqHWD3vRVXB PTQ35AU22nIYj p4Y3hNR7F8FdCPFnpbnhj dkiyKK9NTFjNHWtxF26jI IaALwwGc5sr5D0v991LQK iNSJqyB14Il7n tMrkZFJxeWLLcM3uenhnz 8okjacsIbHcTZAaFFa5XL o3UYHuaEagMaXmCQT8ApV 8GKH7qIJxzE0c rAwwwbllsK5aUrv+MDQvM NMjODc7DIklrQV+PHRkIH X0wSzgBIwpRGUwxK2mSRO xF5v6AqUkGyQ0 DDhgO4AxVTOjalulDk65r B3mJhApMxR2JVasH4Bdzw A3TDSeoVOvXDabACI8G91 fh7X7KPZeEEHn MDU3sLY9vQ9fcXtnizlni GVmdDsgdmVydGljYWwtYW nuG377GUGemTlrApDcMUa iFHYeTA37WT93 fCMix0U8sSA7E0ZuJNLyv lmftjuptNK3ROQvIEFjjN 48xIZxTOzrOg6nj7I5x30 9RHLdXEYwrA19 Op3zeFhsVEXxuURBtN5po niti2ftejoqEnKtVNLuPH s7GCe0MXTbeTcbHtKySJX 5TvC4PWC6xKSp vQ1mwViqwjwyfD6mSaw+R dOwYRvfIB34PY85pHJrv3 K2mMW8T5ApWPLharktdpx zvCG2MLMoXNWv hB97rBPfNKcfKw5wg6B8n 341XGGnASHrsM67Ve4voW oySFYkyGONnQ5gqeicb9r vcjogIzAwMDAw YGb3NCe2RXDiqXgyEbNpK VP9DfT7IPU1mBSbjG1jtU hdpisilE9hMrb+EI8gpDc wqY5xvH5OJX3b MMOzbZDXnULkLGH0JX08M P21V7NkAowexBGwhMY+PH RhYmxlIHdpZHRoPScxMDA wAnHnuQjvEE1k As7yBMXiOZGnhLtzjJYvF gMom5qhXOMdFOppDP3loS djG7PhsIZ6RDSga8n0Ih0 6O07lB4EsoMS+ PNXeaBQ0mVJ1bC2zGxFcV cX9IYqlD137NzXvvSBmDb wtk9yxx1hhkGz4GaEsGXU gdmFsaWduPSJ0 m2JwSx11S06qUIypRKPeK NWuMQNxNVDlyWhsoe2buQ 9wIi8+DCDlrHP8xNF2qI0 dPzZkSoR4IDni T006WvXxePCiTcwwK93tR 3JvdXA+VJZkOia0KNBfwH arAN2wkBWpJLerVm2qMDK 0OiAwLjIwMGlu N2QwQLYkkuehzzhdvAO4G SBxXKPwmC66Nt9udQudWr 4nPBYzGYX2YNPyjVLxG8W qeX8cMfSuBDLx POKvF8OuoKNsYRavY827P EueCtK3SAKsxcBvV9HkEG AleOwgLcC8n3A2Vu7GeRt ioEWgTM7kKuSp DNx6H5EoFij9MGOcnHcnC X5wlKBzAPgnCd3diNlwsM tpOR4dUPTmvrhpu229OiO aq3oeUEEzdFZu IUwrEGR9F40cb5R3JOAlZ IAwJQY6jIR6rG6zxVjriq ogbGVmdDsgdmVydGljYWw dPMcxZ103FUVz nZdmIqGYMnn7F9QnRqt7P TVhkSyjOG3nvOTgZEewCh 4gcKdtrAolDY0pYOFxksx kl724NbLjp4tu NJXdoIWjNFiaQBA9O58iv 0Q9XIXfXOUkWXY1oGZ9iF 1hbGlnbjogbGVmdDsgdmV ydGljYWwtYWxp M362PXPgzHagZv6LRny9I 1SeVbw0TIEdbBxwRO6akA TqWJegLk6cfOvyzRajPS6 jZYGpzhzru660 TbOvx6ksKVDqxLQqNFihB BM2I06cd8F3QKGoCFPeXJ Z0pNR6cY0jnVhbwyphaOW mdDsgdmVydGlj ORjoQVajG884KCOwuQckE lBheWVyOjwvdGQ+PC90cj 27L3SgBrycImw3EQJnCUI 2vBG3cS1kKAYu KTfue6B4 (more content not included)... [facility] Postoperative Documentson Postoperative Documents [id number] .00CD:127 [facility] Consent for Anesthesiaon Consent for Anesthesia [id number] .00CD:127 Normal [facility] Discharge Instructionson Discharge Instructions [id number] .00CD:127 Normal [facility] IntraOperative Documentson 0 12-08-2022 IntraOperative Documents [id number]#1 .00CD:127 Normal [facility] IntraOperative Documents [id number] .00CD:127 Normal [facility] Main OR Intraoperative Recor don 12-08-2022 Main OR Intraoperative Record IntraOp Document Type FT Summary Primary Physician: Gal Das MD Finalized Date/Time: 12/08/22 11:15:49 Pt. Name: SHAZIA CHOU Isreal Edwards./Sex: 1990 Female Med Rec #: [id number] Physician: Gal Das MD Financial #: [id number] Pt. Type: A Room/Bed: [facility] Admit/Disch: 12/05/22 06:47:31 - 12/05/22 13:25:00 Institution: Case Times FT Entry 1 Patient Times In Room 12/05/22 09:28:00 Out Room 12/05/22 11:13:00 Procedure Times Start 12/05/22 09:52:00 Stop 12/05/22 11:04:00 Anesthesia Times Start 12/05/22 09:28:00 Stop 12/05/22 11:13:00 Last Modified By: Mariposa ROLLE, [facility] 12/05/22 11:26:32 General Comments: Davinci robot docked by Burak RN at 1009, surgeon at console at 1010 to 1058, Davinci robot undocked by Burak RN at 1058. MARCO Sumner 12/08/22 Chart opened to review and send charges [facility]oth CSFA Case Attendance FT Entry 1 Entry 2 Entry 3 Case Attendee Thiago Myles CRNA, MD, Gal Martines CST, Luly Santiago Role Performed RAJESH Surgeon - Primary SOFTWARE BUSINESS ANALYST/SA Time In 12/05/22 09:28:00 12/05/22 09:28:00 12/05/22 09:28:00 Time Out 12/05/22 11:13:00 12/05/22 11:00:00 12/05/22 11:13:00 Procedure HYSTERECTOMY, ROBOT HYSTERECTOMY, ROBOT HYSTERECTOMY, ROBOT ASSISTED(.) ASSISTED(.) ASSISTED(.) Comments Dr. Maria supervising Last Modified By: Mariposa RNLaci RN, Laci Mancuso RN 12/05/22 11:13:40 12/05/22 11:26:57 12/05/22 11:13:40 Entry 4 Entry 5 Entry 6 Case Attendee Marpiosa RN, Laci Grant RN, Jennifer Woody CST Role Performed Lacquer Pin Press Operator - Primary Lacquer Pin Press Operator - Primary Scrub - Primary Time In 12/05/22 09:28:00 12/05/22 09:28:00 12/05/22 09:28:00 Time Out 12/05/22 11:13:00 12/05/22 11:13:00 12/05/22 11:13:00 Procedure HYSTERECTOMY, ROBOT HYSTERECTOMY, ROBOT HYSTERECTOMY, ROBOT ASSISTED(.) ASSISTED(.) ASSISTED(.) Comments Last Modified By: Mariposa RNLaci RN, Laci Mancuso RN 12/05/22 11:13:40 12/05/22 11:13:40 12/05/22 11:13:40 Entry 7 Entry 8 Case Attendee Kenrick Lozano Jennifer E Role Performed Scrub - Primary Staff - Other Time In 12/05/22 09:28:00 12/05/22 09:28:00 Time Out 12/05/22 11:13:00 12/05/22 11:13:00 Procedure HYSTERECTOMY, ROBOT HYSTERECTOMY, ROBOT ASSISTED(.) ASSISTED(.) Comments Last Modified By: Laci Monge RN, RN, Sheminith A 12/05/22 11:13:40 12/05/22 11:13:40 Perioperative Protocols FT Pre-Care Text: Implements protective measures prior to operative or invasive procedure, confirms identity before the operative or invasive procedure, verifies operative procedure, surgical site, and laterality Entry 1 Procedure(s) HYSTERECTOMY, ROBOT Patient Identity Birthday, Blood Band, ASSISTED(.) Verified (select at ID Band Check, Patient least 2): Participation Consents / H and P Anesthesia Consent, Operative Site N/A Verified HandP, Surgery/Procedure Marking Verified Consent, Transfusion Consent Surgical Site Yes Laterality Verified Yes Verified Procedure Verified Yes Correct Patient Yes Position Verified Availability Equipment, Medication Prep Dry Yes Verified (If Applicable) PreOp Antibiotic Yes Time Out Shar MENA, Given Participants Thiago Fajardo MD, Gal Ngo, Bobbi MUNOZ, Luly Phillips, Mariposa ROLLE, Rudy Vela RN, Yoseph Li CST, Blake Christensen Adam A, Francis, Jennifer E Time Out Complete 12/05/22 09:50:00 Outcomes Met? Yes Last Modified By: Laci Monge RN 12/05/22 10:44:14 Post-Care Text: The patient is free from signs and symptoms of injury caused by extraneous objects Allergy Information FT Pre-Care Text: Verifies allergies Entry 1 Allergies Reviewed? Yes Allergies Reviewed Self/Patient With Outcomes Met? Yes Last Modified By: Laci Monge RN 12/05/22 10:25:28 Post-Care Text: The patient received appropriate medication(s) safely administered during the perioperative period Surgical Procedures FT Entry 1 Procedure Description Procedure HYSTERECTOMY, ROBOT Modifiers . ASSISTED Surgeon Description ROBOTIC ASSISTED HYSTERECTOMY AND RIGHT SALPINGECTOMY Primary Procedure Yes Primary Surgeon Thiago BHAKTA, Gal Ngo Start 12/05/22 09:52:00 Stop 12/05/22 11:04:00 Anesthesia Type General Surgical Service Obstetric Gynecology Wound Class 2 - Clean-Contaminated Last Modified By: Laci Monge RN 12/08/22 11:10:01 General Case Data FT Pre-Care Text: Classifies surgical wound, implements aseptic technique, initiates traffic control Entry 1 Case Information OR OR 6 FT Case Level Level 5 Wound Class 2 - Clean-Contaminated Specialty Obstetric Gynecology ASA Class 2 Preop Diagnosis MENORRHAGIA DYSMENORRHEA Postop Same As Preop No Postop Diagnosis MENORRHAGIA, Outcomes Met? Yes DYSMENORRHEA, LEFT OVARIAN CYST Last Modified By: Laci Monge RN 12/05/22 10:3 (more content not included)... Normal [facility] Preoperative Documentson Preoperative Documents [id number] .00CD:[address] [facility] Operative Reporton Operative Report SURGERY DATE: 12/05/2022 PREOPERATIVE DIAGNOSIS: Menorrhagia, dysmenorrhea, probable adenomyosis POSTOPERATIVE DIAGNOSIS: Menorrhagia, dysmenorrhea, probable adenomyosis, leiomyomata OPERATION: Robotic assisted hysterectomy, right salpingectomy, incision and drainage of left ovarian cyst, lysis of adhesions ANESTHESIA: General ANESTHESIOLOGIST: Ania Myles CRNA PREOPERATIVE HISTORY: The patient is a 31 year old white female who presented to my office which endometrial biopsies revealed secretory endometrium. She had problems with prolonged cycles associated with progressive pain. Her ultrasound revealed potential for adenomyosis as well as some small fibroids. She had a salpingectomy for sterilization in the past reportedly. She had a rather heavy smoking habit and was on medications for hypertension. She had been tried with an intrauterine device in the past which was unsuccessful for her bleeding. We discussed ablations but it was felt that this would not take care of her adenomyosis and her pain. Consequently, she desired more definitive surgical management in the form of hysterectomy. She appropriately signed consent forms and was made ready for the Operative Suite. OPERATIVE TECHNIQUE: The patient was taken to the Operative Suite and after general anesthesia was administered the patient was draped and prepped in the usual fashion for abdominal surgery. A sharp knife was used to make a scoring incision underneath the umbilicus which allowed for the Veress needle to be placed in the peritoneal cavity. Peritoneal cavity was insufflated with 2 1/2 liters of carbon dioxide and the laparoscopic sheath and trocar were introduced into the peritoneal cavity. Secondary and tertiary probes were placed under direct visualization as well as an purchasing administrative assistant port. It is noted that a [employer] uterine manipulator was placed prior to the abdominal approach. Evaluation of the pelvis revealed a uterus that was leiomyomatous. There was a 4 cm cyst on the left ovary. There were filmy adhesions to both right and left ovaries. The bladder flap was reapproximated higher up on the uterus secondary to previous history of sections and attention was turned to the left suspensory ligament of the ovary to the uterus and this was ligated using the vessel sealer. A series of ligations and incisions were carried down the mesosalpinx on the left to the level of the round ligament. The round ligament was then ligated and incised with the vessel sealer. A series of ligations and incisions were carried down the lateral aspect of the uterus. This allowed for a rent to be made in the anterior peritoneum above the bladder and a bladder flap was created very carefully as there were adhesions and the bladder was reflected off the lower uterine segment and a fibroid that was anterior on the lower uterine segment. The left uterine vessels were skeletonized and ligated using the vessel sealer. A series of ligations and incisions were used to reflect the uterine vessels off the lower uterine segment. Hemostasis was assured and attention was turned to the opposite side. The right fallopian tube was still present although phimosed at the fimbriated end. The vessel sealer was used to dissect the fallopian tube away from the mesosalpinx on the right and the vessel sealer was then used to ligate the suspensory ligament to the ovary. The vessel sealer was then used to ligate the mesosalpinx towards the round ligament. The round ligament was then ligated and incised using the vessel sealer. A series of ligations and incisions were carried out down the lateral aspect of the uterus and the bladder flap was then completed and the rest of the bladder was reflected off the lower uterine segment. The uterine vessels on the right were skeletonized and the uterine vessels on the right were then ligated and incised using the vessel sealer. A series of ligations and incisions were used to reflect the uterine vessels off the lower uterine segment. Hemostasis was assured and the vaginal cuff was created using the Endoshears following the VCare guide. This then allowed for the specimen to be extirpated from the surgical field. Hemostasis was assured on the vaginal cuff. The vaginal cuff was closed using 2-0 V-Loc suture incorporating the vaginal cuff into the uterosacral ligaments on the left and on the right. Hemostasis was again assured. Copious amounts of irrigation were used. Hemostasis was again assured and the carbon dioxide and the laparoscopic sheaths were removed from the peritoneal cavity. The skin edge was closed with 4-0 Vicryl suture in a subcuticular stitch. Steri-Strips and usual dressing were applied. Estimated blood loss was minimal. Fluid replacement was adequate. There were no complications. Sponge and needle counts were correct and the patient was transferred to the Recovery Room in stable condition. Gal Das M.D. lr Dictated: 12/05/2022 [id number] Transcribed: 12/05/2022 Normal [facility] Comment on above: Result Comment: Elec tronically Signed By: Thiago BHAKTA, aGl Ngo\.br\Date and Time Signed: 12/07/22 09:31 EDT ABO/Rhon 12-05-2022 ABO/Rh Negative Invalid Interpretation Code [facility] Comment on above: Performed By: #### 1 [id number], [id number] #### [facility] [address] [place] [address] ABO/Rh History Checkon 12-05 ABO/Rh History Check Verified Hx Blood Type Normal [facility] Comment on above: Performed By: #### 1 [id number] #### [facility] [address] [place] [address] ABSCon 12-05-2022 ABSC Gel Interp Negative Normal [facility] Comment on above: Performed By: #### 1 [id number] #### [facility] [address] [place] [address] BLOOD BANKOrdered By: Myrna Contreras on 12-05-2022 ABO/Rh Interp Negative Invalid Interpretation Code [facility] BB Subsection ABSC Gel Interp Negative (12/05/22 7:24 AM) Normal [facility] BB Subsection Blood Bank ID#on 12-05-2022 BBID# [id number] Invalid Interpretation Code [facility] Comment on above: Performed By: #### 1 [id number], [id number] #### [facility] [address] [place] [address] Consent for Treatmenton 11-13 Consent for Treatment [id number] .00CD:127 Normal [facility] Inpatient Patient Summaryon 12-05-2022 Inpatient Patient Summary [address] [address] [facility] Clinical Discharge Instructions PERSON INFORMATION Name: SHAZIA CHOU [facility]#:[id number] PHYSICIANS Admitting Physician: Gal Das MD Attending Physician: Gal Das MD PCP: Charisse TEIXEIRA, Nakia Brock Discharge Diagnosis: Bipolar disorder; Borderline personality disorder; History of bypass of stomach; S/P total hysterectomy Comment: PATIENT EDUCATION INFORMATION Instructions: Post Op Patient Instructions - ALANNA (CUSTOM); CHIP BIN CONVEYOR TENDER - Post Hysterectomy/[place] my/Major Surgery-Thiago (CUSTOM) Medication Leaflets: Follow up: With: Address: When: [facility] [address], [place] [address] Business (1) Within 6 weeks With: Address: When: Gal Das [facility], [facility] [address], [place] [address] JIT Solaire (0) Within 2 weeks Comments: Call for any problems. Type Location Start [facility] 01/02/2023 10:00 AM 01/02/2023 10:20 AM Confirmed MEDICATION LIST New Medications [id number], [address], [place] [id number], [phone] acetaminophen-oxycodo ne (acetaminophen-oxycod one 325 mg-5 mg Tab) 1 Tablets By Mouth every 6 hours as needed for pain for 2 Days. Refills: 0. Medications to Continue with No Changes Other Medications acetaminophen (Tylenol) 325 Milligram By Mouth every 4 hours as needed as needed for pain. acetaZOLAMIDE (acetaZOLAMIDE 500 mg oral capsule, extended release) 1 Capsules By Mouth 2 times a day., Intracrainal Hypertension brexpiprazole (Rexulti 3 mg oral tablet) 1 Tablets By Mouth every day., mood stabilizer calcium citrate (calcium (as calcium citrate) 200 mg oral tablet) By Mouth 2 times a day. duloxetine (Cymbalta) 60 Milligram By Mouth [address] chaparro. gabapentin (gabapentin 300 mg Cap) 1 Capsules By Mouth 2 times a day., Mental health lisinopril (lisinopril 5 mg Tab) 1 Tablets By Mouth every day. Refills: 5. multivitamin with minerals (Multi-Day Plus Minerals) By Mouth every day. ondansetron (Zofran 8 mg Tab) 1 Tablets By Mouth 2 times a day. Refills: 1. pantoprazole (Pantoprazole [address] Tab) 1 Tablets By Mouth every day. trazodone 100 Milligram By Mouth once a day (at bedtime). Comment: Normal [facility] Main OR PACU I Recordon 11-13 Main OR PACU I Record PACU Phase I Docum ent Type FT Summary Primary Physician: Gal Das MD Finalized Date/Time: 12/05/22 12:09:52 Pt. Name: SHAZIA CHOUO.B./Sex: 1990 Female Med Rec #: [id number] Physician: Gal Das MD Financial #: [id number] Pt. Type: A Room/Bed: 01/12 Admit/Disch: 12/05/22 06:47:31 - Institution: Case Times PACU I FT Pre-Care Text: Identifies barriers to communication and implements measures to provide psychological support Develops individualized plan of care, and ensures continuity of care Maintains patient's dignity and privacy, and maintains patient confidentiality Identifies and reports philosophical, cultural, and spiritual beliefs and values Identifies individual values and wishes concerning care Implements aseptic technique, and administers prescribed antibiotic therapy and immunizing agents as ordered Evaluates postoperative tissue perfusion Implements thermoregulation measures, and monitors body temperature Evaluates postoperative respiratory status Evaluates postoperative cardiac status Evaluates postoperative neurological status Assesses pain control, collaborated in initiating patient-controlled analgesia and implements alternative methods of pain control Verifies allergies, administers prescribed medications and solutions, evaluates response to medications Entry 1 In PACU I 12/05/22 11:15:00 Discharge from PACU 12/05/22 11:58:00 I Outcomes Met? Yes Last Modified By: Christina Mckeon I 12/05/22 12:09:31 Post-Care Text: The patient demonstrates knowledge of the expected response to the operative or invasive procedure The patient's care is consistent with the individualized perioperative plan of care The patient's right to privacy is maintained The patient's value system, lifestyle, ethnicity, and culture are considered, respected, and incorporated into the perioperative plan of care The patient participates in decisions affecting his or her perioperative plan of care The patient is free from signs and symptoms of infection The patient has wound/tissue perfusion consistent with or improved from baseline levels established preoperatively The patient is at or returning to normothermia at the conclusion of the immediate postoperative period The patient's respiratory function is consistent with or improved from baseline levels established preoperatively The patient's cardiovascular status is consistent with or improved from baseline levels established preoperatively The patient's cardiovascular status is consistent with or improved from baseline levels established preoperatively The patient demonstrates and/or reports adequate pain control throughout the perioperative period The patient received appropriate medication(s), safely administered during the perioperative period Acuity Level PACU I FT Entry 1 Start Time 12/05/22 11:15:00 Stop Time 12/05/22 11:58:00 Acuity Level Acuity Level I Last Modified By: Christina Mckeon I 12/05/22 12:09:46 Finalized By: Christina Mckeon I Document Signatures Signed By: Christina Mckeon I 12/05/22 12:09 [facility] Main OR PACU II Recordon Main OR PACU II Record PACU Phase II Document Type FT Summary Primary Physician: Gal Das MD Finalized Date/Time: 12/05/22 13:45:29 Pt. Name: SHAZIA CHOU/Sex: 1990 Female Med Rec #: [id number] Physician: Gal Das MD Financial #: [id number] Pt. Type: A Room/Bed: 01/12 Admit/Disch: 12/05/22 06:47:31 - 12/05/22 13:25:00 Institution: Case Times PACU II FT Pre-Care Text: Identifies barriers to communication and implements measures to provide psychological support and determines knowledge level Develops individualized plan of care, and ensures continuity of care Maintains patient's dignity and privacy, and maintains patient confidentiality Identifies and reports philosophical, cultural, and spiritual beliefs and values Identifies individual values and wishes concerning care administers prescribed antibiotic therapy and immunizing agents as ordered, Evaluates postoperative tissue perfusion Implements thermoregulation measures, and monitors body temperature Evaluates postoperative respiratory status Evaluates postoperative cardiac status Evaluates postoperative neurological status Assesses pain control, collaborated in initiating patient-controlled analgesia and implements alternative methods of pain control Verifies allergies, administers prescribed medications and solutions, evaluates response to medications Entry 1 In PACU II 12/05/22 12:00:00 Discharge from PACU 12/05/22 13:25:00 II Outcomes Met? Yes Last Modified By: Padmini Arreola RN 12/05/22 13:37:04 Post-Care Text: The patient demonstrates knowledge of the expected response to the operative or invasive procedure The patient's care is consistent with the individualized perioperative plan of care The patient's right to privacy is maintained The patient's value system, lifestyle, ethnicity, and culture are considered, respected, and incorporated into the perioperative plan of care The patient participates in decisions affecting his or her perioperative plan of care. The patient is free from signs and symptoms of infection The patient has wound/tissue perfusion consistent with or improved from baseline levels established preoperatively The patient is at or returning to normothermia at the conclusion of the immediate postoperative period The patient's respiratory function is consistent with or improved from baseline levels established preoperatively The patient's cardiovascular status is consistent with or improved from baseline levels established preoperatively The patient's neurological status is consistent with or improved from baseline levels established preoperatively The patient demonstrates and/or reports adequate pain control throughout the perioperative period The patient received appropriate medication(s), safely administered during the perioperative period Finalized By: Ismael Soto RN Document Signatures Signed By: Ismael Soto RN 12/05/22 13:45 Normal [facility] Main OR Preoperative Recordo n 12-05-2022 Main OR Preoperative Record PreOp Document Type FT Summary Primary Physician: Gal Das MD Finalized Date/Time: 12/05/22 10:44:34 Pt. Name: KARIN CHOUDION Edwards./Sex: 1990 Female Med Rec #: [id number] Physician: Gal Das MD Financial #: [id number] Pt. Type: A Room/Bed: Admit/Disch: 12/05/22 06:47:31 - Institution: Case Times PreOp FT Pre-Care Text: Verifies consent for planned procedure, identifies individual values and wishes concerning care, includes family members in perioperative teaching Entry 1 Patient Times. In Pre Surgery 12/05/22 06:50:00 Out Pre Surgery 12/05/22 09:26:00 Outcomes Met? Yes Last Modified By: Laci Monge RN 12/05/22 10:44:31 Post-Care Text: The patient participates in decisions affecting his or her perioperative plan of care Finalized By: Laci Monge RN Document Signatures Signed By: Laci Monge RN 12/05/22 10:44 Normal [facility] Monitor Recordon 12-05-2022 Monitor Record [id number] .[id number]:127 Normal [facility] Monitor Record [id number] .[id number]:127 Normal [facility] Outpatient Surgery Discharge Instructionon 12-05-2022 Outpatient Surgery Discharge Instruction [address] [address] Patient Discharge Instructions PERSON INFORMATION Name: SHAZIA CHOU Date of : 1990 Current Date: 12/05/2022 12:15:14 PHYSICIANS Admitting Physician: Gal Das MD Discharge Diagnosis: Bipolar disorder; Borderline personality disorder; History of bypass of stomach; S/P total hysterectomy SHAZIA CHOU has been given the following list of follow-up instructions, prescriptions, and patient education materials: PATIENT FOLLOW-UP INFORMATION Diet: Regular Discharge Activity: Expect mild pain, Expect minimal amount of drainage and/or bleeding, Activity as tolerated Call Your Doctor For: Persistent or heavy bleeding, Temperature above 101.5 degrees, Persistent vomiting Wound Care Instructions: Keep incision dry IF UNABLE TO CONTACT YOUR PHYSICIAN AND YOU FEEL IT IS AN EMERGENCY, GO TO THE NEAREST EMERGENCY ROOM OR CALL 911 IJOSÉ ANTONIO JESSICA L, have received the attached patient education materials/instruction s and have verbalized understanding: May we do a follow up call? Yes No I was present when discharge instructions were given Patient Signature Date Clinican/Nurse Signature Date Follow up: With: Address: When: Gal Addison [address], [address] [place] [address] Business (1) Within 6 weeks With: Address: When: Gal PANDEYDIONNE DE [address]Z, [address], [place] [address] Business (1) Within 2 weeks Comments: Call for any problems. Type Location Start [facility] [place] 01/02/2023 10:00 AM 01/02/2023 10:20 AM Confirmed Pharmacy Information: You may receive a survey from Mary Cuenca asking you to rate your care experience. Your feedback is important and will help us understand what we do well and how we can improve the quality of care we provide to you, your loved ones and our community. It?s an honor to serve you. Thank you for choosing [facility] HERE ARE THE MEDICATION CHANGES THAT OCCURRED DURING YOUR HOSPITAL STAY New Medications [id number], [address], [place] [id number], [phone] acetaminophen-oxycodo ne (acetaminophen-oxycod one 325 mg-5 mg Tab) 1 Tablets By Mouth every 6 hours as needed for pain for 2 Days. Refills: 0. Medications to Continue with No Changes Other Medications acetaminophen (Tylenol) 325 Milligram By Mouth every 4 hours as needed as needed for pain. acetaZOLAMIDE (acetaZOLAMIDE 500 mg oral capsule, extended release) 1 Capsules By Mouth 2 times a day., Intracrainal Hypertension brexpiprazole (Rexulti 3 mg oral tablet) 1 Tablets By Mouth every day., mood stabilizer calcium citrate (calcium (as calcium citrate) 200 mg oral tablet) By Mouth 2 times a day. duloxetine (Cymbalta) 60 Milligram By Mouth 2 times a day. per dr chaparro. gabapentin (gabapentin 300 mg Cap) 1 Capsules By Mouth 2 times a day., Mental health lisinopril (lisinopril 5 mg Tab) 1 Tablets By Mouth every day. Refills: 5. multivitamin with minerals (Multi-Day Plus Minerals) By Mouth every day. ondansetron (Zofran 8 mg Tab) 1 Tablets By Mouth 2 times a day. Refills: 1. pantoprazole (Pantoprazole [address] Tab) 1 Tablets By Mouth every day. trazodone 100 Milligram By Mouth once a day (at bedtime). PATIENT EDUCATION INFORMATION Instructions: Instructions post hysterectomy/laparoto my/major surgery It is recommended that you rest at home on the day of discharge, and get to bed early so you get a good night?s rest. Gradually increase your activity daily ? for example: no lifting anything heavier than ten pounds the first week, twenty pounds the second week, and thirty pounds the third week. NO: intercourse, douches, and tampons for the next 6 weeks. You can expect some vaginal spotting, cramps or light bleeding after surgery. This is normal. Each day should get better and better. If you are soaking a pad an hour or more frequently ? you need to call your doctor. You can ride in a car; Drive when it is not painful. If it is painful, don?t do it. Stitches will dissolve with time and do not need to be removed. The band aids can be removed tomorrow. Leave the steri strips on. They may fall off and that is o.k. You may place band aids over the steri strips if there is drainage. You can shower with the incisions the day after surgery. Try to keep the steri strips as dry as possible. No tub baths, swimming, or soaking in water until after your two week follow up appointment. Return to the office for po (more content not included)... Normal [facility] Patient Education - Texton 0 12-05-2022 Patient Education - Text Instructions post hysterectomy/laparoto my/major surgery It is recommended that you rest at home on the day of discharge, and get to bed early so you get a good night?s rest. Gradually increase your activity daily ? for example: no lifting anything heavier than ten pounds the first week, twenty pounds the second week, and thirty pounds the third week. NO: intercourse, douches, and tampons for the next 6 weeks. You can expect some vaginal spotting, cramps or light bleeding after surgery. This is normal. Each day should get better and better. If you are soaking a pad an hour or more frequently ? you need to call your doctor. You can ride in a car; Drive when it is not painful. If it is painful, don?t do it. Stitches will dissolve with time and do not need to be removed. The band aids can be removed tomorrow. Leave the steri strips on. They may fall off and that is o.k. You may place band aids over the steri strips if there is drainage. You can shower with the incisions the day after surgery. Try to keep the steri strips as dry as possible. No tub baths, swimming, or soaking in water until after your two week follow up appointment. Return to the office for postoperative check, and to go over any biopsy results at your scheduled appointment; usually two weeks following your surgery; and then at six weeks after surgery. Please call the office to schedule these appointments. CALL THE DOCTOR if you have severe pain, heavy bleeding, or a temperature of 100.5 or higher. Resume your regular home medication schedule as soon as you are eating a regular diet. You can either take the prescribed medications as directed for pain, or you can take over the counter pain medication, such as Motrin; as indicated on the package for pain or cramps. PLEASE CALL FOR ANY PROBLEMS. [facility] Progress Note-Physicianon Progress Note-Physician Patient: SHAZIA CHOU Age: 31 years Sex: Female : 1990 Associated Diagnoses: None Author: Vu Maria Jr., DO Postoperative Information Postoperative disposition: Postoperative disposition: Home. Optimetrix number: Optimetrix number [id number]. Anesthetic utilized: General. Physical Examination Vital Signs 12/05/2022 13:20 EDT Heart Rate Monitored 58 bpm LOW Respiratory Rate Monitored 18 br/min Systolic Blood Pressure 110 mmHg Diastolic Blood Pressure 74 mmHg SpO2 100 % 12/05/2022 12:00 EDT Heart Rate Monitored 54 bpm LOW SpO2 100 % 12/05/2022 11:59 EDT Systolic Blood Pressure 109 mmHg Diastolic Blood Pressure 72 mmHg Mean Arterial Pressure, Monitered 84 mmHg 12/05/2022 11:53 EDT Temperature Temporal Artery 36.4 DegC Heart Rate Monitored 59 bpm LOW Respiratory Rate Monitored 14 br/min Systolic Blood Pressure 115 mmHg Diastolic Blood Pressure 73 mmHg Mean Arterial Pressure, Cuff 87 mmHg SpO2 100 % 12/05/2022 11:40 EDT Heart Rate Monitored 58 bpm LOW Respiratory Rate Monitored 18 br/min Systolic Blood Pressure 115 mmHg Diastolic Blood Pressure 63 mmHg Mean Arterial Pressure, Cuff 80 mmHg SpO2 100 % 12/05/2022 11:30 EDT Heart Rate Monitored 60 bpm Respiratory Rate Monitored 16 br/min Systolic Blood Pressure 114 mmHg Diastolic Blood Pressure 78 mmHg Mean Arterial Pressure, Cuff 90 mmHg SpO2 99 % 12/05/2022 11:25 EDT Heart Rate Monitored 80 bpm Respiratory Rate Monitored 17 br/min Systolic Blood Pressure 117 mmHg Diastolic Blood Pressure 70 mmHg Mean Arterial Pressure, Cuff 86 mmHg SpO2 98 % 12/05/2022 11:20 EDT Heart Rate Monitored 82 bpm Respiratory Rate Monitored 18 br/min Systolic Blood Pressure 117 mmHg Diastolic Blood Pressure 65 mmHg Mean Arterial Pressure, Cuff 82 mmHg SpO2 97 % 12/05/2022 11:15 EDT Temperature Temporal Artery 36.3 DegC Heart Rate Monitored 65 bpm Respiratory Rate Monitored 18 br/min Systolic Blood Pressure 112 mmHg Diastolic Blood Pressure 64 mmHg Mean Arterial Pressure, Cuff 80 mmHg SpO2 97 % Pain Assessment: Pain Assessment 12/05/2022 13:20 EDT Preliminary Pain Scale 4 Primary Pain Location Abdomen 12/05/2022 11:59 EDT Preliminary Pain Scale 6 Primary Pain Location Abdomen 12/05/2022 11:53 EDT Primary Pain Location Abdomen Numeric Pain Scale 4 12/05/2022 11:32 EDT Primary Pain Location Abdomen Patient Preferred Pain Tool Numeric rating Numeric Pain Scale 4 Numeric Pain Score 4 12/05/2022 11:25 EDT Primary Pain Location Abdomen Numeric Pain Scale 4 . General: Awake, Alert, Appropriate. Respiratory: Adequate air exchange, Non-labored. Cardiovascular: Stable, Normal peripheral perfusion. Neurological: Neurologic exam at baseline. No changes.. Assessment Anesthetic outcome No anesthetic complications noted. No nausea/vomiting. Review / Management Condition: Stable. Plan Transfer/Discharge: Transfer/Discharge Discharge when meets criteria ( From PACU to Ambulatory Surgery Unit, and To home ). Normal [facility] Comment on above: Result Comment: Elec tronically Signed By: Vu Maria Jr., DO\.br\Date and Time Signed: 12/05/22 13:43 EDT Progress Note-Physician Patient: SHAZIA CHOU Age: 31 years Sex: Female : 1990 Associated Diagnoses: None Author: Vu Maria Jr., DO Preoperative Information Anesthesia Preop Info NPO since midnight Anesthesia history: Patient history: No prior anesthetic problems. Informed consent: Signed by patient. Re-evaluation prior to induction: Initial evaluation reviewed: No significant change. Health Status Allergies: Allergic Reactions (Selected) Severity Not Documented Abilify- Suicidal. Coconut Oil- Itching and swelling., Allergies (2) Active Reaction Abilify suicidal Coconut Oil Swelling Current medications: (Selected) Inpatient Medications Ordered HYDROmorphone 1 mg/mL injectable solution: 0.4 mg = 0.4 mL, Injection, IV Push, q4min PRN Pain for 5 dose(s), Stop date Limited # of times, Routine, Start date 12/05/22 7:02:00 EDT, 12/05/22 7:02:00 EDT Lactated Ringers IV Shirley 1000 mL 1,000 mL: 1,000 mL, IV, 100 mL/hr, Routine, Start date 12/05/22 7:02:00 EDT, 10 hour(s), Total volume (mL): 1,000, 84 kg, 1.99, m2 Lactated Ringers IV Shirley 1000 mL 1,000 mL: 1,000 mL, IV, 150 mL/hr, Routine, Start date 12/05/22 7:00:00 EDT, 6.7 hour(s), Total volume (mL): 1,000, 84 kg, 1.99, m2 Phenergan 25 mg/mL Injection: 12.5 mg = 0.5 mL, Injection, IV Push, q2min PRN Other (see comment) for 2 dose(s), Stop date Limited # of times, Routine, Start date 12/05/22 7:02:00 EDT, 12/05/22 7:02:00 EDT cefazolin additive + Sodium Chloride 0.9% intravenous solution 50 mL: 2 gram = 1 EA, Powder-Inj, IV Piggyback, PREOP, Routine, Start date 12/05/22 7:00:00 EDT, 100 mL/hr, Infuse over 30 minute(s) Prescriptions Prescribed Zofran 8 mg Tab: 8 mg = 1 tab(s), Oral, BID, # 6 tab(s), Refills(s) 1, Pharmacy: [facility]/pharmacy #[id number], 162, cm, 08/08/22 9:11:00 EST, Height/Length Dosing, 83.1, kg, 08/08/22 9:11:00 EST, Weight Dosing lisinopril 5 mg Tab: 5 mg = 1 tab(s), Oral, Daily, # 30 tab(s), Refills(s) 5, Pharmacy: [facility]/pharmacy #[id number], 170, cm, 09/24/22 7:09:00 EST, Height/Length Dosing, 86.8, kg, 09/24/22 7:09:00 EST, Weight Dosing Documented Medications Documented Cymbalta: 60 mg, Oral, BID, per dr chaparro, Depression Multi-Day Plus Minerals: Oral, Daily, Refill(s) [address] Tab: 40 mg = 1 tab(s), Oral, Daily, Refills(s) 0, Gas Rexulti 3 mg oral tablet: 3 mg = 1 tab(s), Oral, Daily, Other (see comment) Tylenol: 325 mg, Oral, q4hr, PRN as needed for pain, Refills(s) 0, Pain acetaZOLAMIDE 500 mg oral capsule, extended release: 500 mg = 1 cap(s), Oral, BID, Refills(s) 0, Other (see comment) calcium (as calcium citrate) 200 mg oral tablet: mg tab(s), Oral, BID, Refills(s) 0 gabapentin 300 mg Cap: 300 mg = 1 cap(s), Oral, BID, Refills(s) 0, Other (see comment) trazodone: 100 mg, Oral, Once a day (at bedtime), Refills(s) 0, Sleep, Home Medications (11) Active acetaZOLAMIDE 500 mg oral capsule, extended release 500 mg = 1 cap(s), Oral, BID calcium (as calcium citrate) 200 mg oral tablet , Oral, BID Cymbalta 60 mg, Oral, BID gabapentin 300 mg Cap 300 mg = 1 cap(s), Oral, BID lisinopril 5 mg Tab 5 mg = 1 tab(s), Oral, Daily Multi-Day Plus Minerals , Oral, Daily Pantoprazole [address] Tab 40 mg = 1 tab(s), Oral, Daily Rexulti 3 mg oral tablet 3 mg = 1 tab(s), Oral, Daily trazodone 100 mg, Oral, Once a day (at bedtime) Tylenol 325 mg, PRN, Oral, q4hr Zofran 8 mg Tab 8 mg = 1 tab(s), Oral, BID , Medications (5) Active Scheduled: (1) ceFAZolin + Sodium Chloride 0.9% Minibag 50 mL 2 gram 1 EA, IV Piggyback, PREOP Continuous: (2) Lactated Ringers 1,000 mL 1,000 mL, IV, 150 mL/hr Lactated Ringers 1,000 mL 1,000 mL, IV, 100 mL/hr PRN: (2) HYDROmorphone 1 mg/mL SOLN [F] 0.4 mg 0.4 mL, IV Push, q4min promethazine 25 mg/mL Inj [F] 12.5 mg 0.5 mL, IV Push, q2min Problem list: All Problems Alcohol abuse / SNOMED CT 98908236 / Confirmed Anxiety and depression / SNOMED CT 48059676 / Confirmed Bipolar disorder / SNOMED CT 34888183 / Confirmed Borderline personality disorder / SNOMED CT 55854815 / Confirmed Grief reaction / SNOMED CT 930267342 / Confirmed Headache after spinal puncture / SNOMED CT 431996065 / Confirmed History of bypass of stomach / SNOMED CT 4893057736 / Confirmed Intracranial hypertension / SNOMED CT 341299148 / Confirmed Left breast mass / SNOMED CT 928805721 / Confirmed Pancreatic mass / SNOMED CT 5617807504 / Confirmed Smoker / SNOMED CT 197473917 / Confirmed Added secondary to documentation in Social History. Somatic dysfunction of cervical region / SNOMED CT 2630099375 / Confirmed Somatic dysfunction of head region / SNOMED CT 7301459630 / Confirmed Somatic dysfunction of thoracic region / SNOMED CT 8034914441 / Confirmed Vitamin D deficiency / SNOMED CT 87870114 / Confirmed Resolved: / SNOMED CT 044130529 Resolved: / SNOMED CT 914561724 Resolved: / SNOMED CT 671577148 Canceled: Anxiety / SNOMED CT 03602391 Canceled: A (more content not included)... Normal [facility] Comment on above: Result Comment: Elec tronically Signed By: Vu Maria Jr., DO\.br\Date and Time Signed: 12/05/22 07:10 EDT UA With Cult Reflexon 2022 Bilirubin Ql (U) Negative Normal Negative [facility] Comment on above: Performed By: #### 1 [id number], 0737084, 9740420, 4833768, [id number], 4963461 #### [facility] [address] [place] [address] Clarity (U) CLEAR Normal Clear [facility] Comment on above: Performed By: #### 1 4422609, 2611103, 8053321, 7741277, 52149538, 9864220 #### [facility] [address] [place] [address] Color (U) YELLOW Normal Yellow [facility] Comment on above: Performed By: #### 1 2411686, 3083716, 3972397, 8967709, 76047796, 3059274 #### [facility] [address] [place] [address] Epithelial cells.squamous LM.HPF (Urine sed) [#/Area] 0-2 Normal 0-2 [facility] Comment on above: Performed By: #### 1 9269888, 1691780, 6294120, 9234316, 68766018, 9796505 #### [facility] [address] [place] [address] Glucose Test strip (U) [Mass/Vol] Negative Normal Negative [facility] Comment on above: Performed By: #### 1 0624959, 0987522, 4145772, 2151601, 41772423, 8313876 #### [facility] [address] [place] [address] Hemoglobin Ql (U) Negative Normal Negative [facility] Comment on above: Performed By: #### 1 1536365, 2498222, 4047397, 7597396, 74890054, 0082386 #### [facility] [address] [place] [address] Ketones (U) [Mass/Vol] Negative Normal Negative [facility] Comment on above: Performed By: #### 1 1836127, 0663368, 1221924, 6735619, 14670186, 6277441 #### [facility] [address] [place] [address] [place].plasma/[place]. RBC (Bld) [Mass ratio] 0-3 Normal 0-3 [facility] Comment on above: Performed By: #### 1 2013440, 5411866, 3310775, 6393787, 61060159, 5074376 #### [facility] [address] [place] [address] Nitrite Ql (U) Negative Normal Negative [facility] Comment on above: Performed By: #### 1 8509579, 0005882, 1971753, 2596205, 94530448, 1374321 #### [facility] [address] [place] [address] pH (U) 6.5 [pH] Invalid Interpretation Code 5.0-9.0 [facility] Comment on above: Performed By: #### 1 8182539, 4514295, 7891904, 8109730, 99256614, 1776971 #### [facility] [address] [place] [address] Protein (U) [Mass/Vol] Negative Normal Negative [facility] Comment on above: Performed By: #### 1 2055121, 4397523, 4614838, 2868134, 32296779, 6902674 #### [facility] [address] [place] [address] Specific gravity (U) [Rel density] 1.015 Invalid Interpretation Code 1.005-1.030 [facility] Comment on above: Performed By: #### 1 0453059, 4943599, 0097686, 2294984, 65504267, 5499274 #### [facility] [address] [place] [address] Type of Urine collection method Catheter Normal [facility] Comment on above: Performed By: #### 1 8117814, 0542317, 4599214, 5609086, 01395506, 6501299 #### [facility] [address] [place] [address] Urobilinogen Qn (U) 1.0 {Lucila'U}/dL Normal 0.0-1.0 [facility] Comment on above: Performed By: #### 1 3833174, 3890374, 3721843, 2591024, 57742339, 1677304 #### [facility] [address] [place] [address] WBC Auto Ql (U) Negative Normal Negative [facility] Comment on above: Performed By: #### 1 9885201, 9652402, 8603735, 5914884, 71503819, 2844257 #### [facility] [address] [place] [address] WBC LM.HPF (Urine sed) [#/Area] 0-5 Normal 0-5 [facility] Comment on above: Performed By: #### 1 1939526, 9672400, 4420223, 2272154, 77515595, 4826184 #### [facility] [address] [place] [address] URINALYSISOrdered By: Kimberli Martin on 12-05-2022 Bilirubin Ql (U) Negative (12/05/22 10:05 AM) Normal Negative [facility] UA Auto SS Clarity (U) Clear (12/05/22 10:05 AM) Normal Clear [facility] UA Auto SS Color (U) Yellow (12/05/22 10:05 AM) Normal Yellow [facility] UA Auto SS Epithelial cells.squamous LM.HPF (Urine sed) [#/Area] 0-2 /HPF Normal 0-2/HPF [facility] UA Aut o SS Glucose Test strip (U) [Mass/Vol] Negative (12/05/22 10:05 AM) Normal Negative [facility] UA Auto SS Hemoglobin Ql (U) Negative (12/05/22 10:05 AM) Normal Negative [facility] UA Auto SS Ketones (U) [Mass/Vol] Negative (12/05/22 10:05 AM) Normal Negative [facility] UA Auto SS [place].plasma/[place]. RBC (Bld) [Mass ratio] 0-3 /HPF Normal 0-3/HPF [facility] UA A uto SS Nitrite Ql (U) Negative (12/05/22 10:05 AM) Normal Negative [facility] UA Auto SS pH (U) 6.5 *NA* (12/05/22 10:05 AM) Invalid Interpretation Code 5.0 - 9.0 [facility] UA Auto SS Protein (U) [Mass/Vol] Negative (12/05/22 10:05 AM) Normal Negative [facility] UA Auto SS Specific gravity (U) [Rel density] 1.015 *NA* (12/05/22 10:05 AM) Invalid Interpretation Code 1.005 - 1.030 [facility] UA Auto SS UA Spec Desc Catheter (12/05/22 10:05 AM) Normal [facility] UA Auto SS Urobilinogen Qn (U) 1.5733823 {Lucila'U}/dL Normal 0.0 - 1.0 EU/dL [facility] UA Auto SS WBC Auto Ql (U) Negative (12/05/22 10:05 AM) Normal Negative [facility] UA Auto SS WBC LM.HPF (Urine sed) [#/Area] 0-5 /HPF Normal 0-5/HPF [facility] UA Auto SS Coding Summary.on 11-27-2022 Coding Summary. CD:[id number] G h0bWw+PGhlYWQ+TX8MYKV dG89juORhzE8iT3KWYMdA SywgQVBQTElOSyIgbmFtZ E0gxDSmZFWp IC8+VI2yMNQnBuxjiOUcr 6J5gGF7R99obi6tENxjgJ I1ZMXdClTzcfjjq4fdyVu 6IDcuNmluOyBt BLHgeX43IAK7iS59Py33n FHrtCKxu4wfwGs4FrFpQZ GlSYB2xDwiDJhrq0UxQFM zE83ntKRzl0Z8 HBYmqBrvaWCvOcZwmXR1p S1bRHmrxynqg1azgctzTd t0yr60yHGkw8D1jVY3T5T skgF6XALmrENp XrqikALSaC2rertpx4zfn anmEdVhUHMlAUj5ISu0SH OyzUdnJtZcEV75SMQ0ONI likPzT7JsKRDe bAddQwP4z7T4Ra3XH4OYG odxJ7MSIYCFBAcqpIR+PC 30ze83O2YqNjxeSny8AQL wWLB5uDM8iT5e HAIhBZgdj7N1fEU3V3Qlg zLrna6fm3raTLOtKJisA1 8fgLRes2X4SPPrzNB7BHD ilEyrZaWvcU88 Oyc+PFIttSdfx3NvJanvn 6mwc6numEy0MqulAKOtnk UzgJojJVA8l1UdEd0qTXX ktVZ6fBU5iJ4e OjSlBbD7YDigV683OrRjn MUaKobfQ53xD6UfxSH+PH ApAxa0AAGltKjzSA4dE9Z hZGRpbmctbGVm dJhyNN9gFRTjecpfZPEpi H8zPWNvO2c6GgIrQkT5EN qxL0LpBARhryapJp65qE2 nUkBrAoO7IHdk H7JvznO7CHAzbVYiTOikN JQ6K06bx5A5VTOtPUIoIL H4vTK9gR6ioBhscmzqzJI mdDsgdmVydGlj IDhlYUovK659BEGqoJtvB kNvZGluZyBEYXRlOiAgMD MvMTYvMjAyMzwvdGQ+PHR oIZM9nPsyXULn sBHoWVemMf8slAqsuXecT R5yNELcdbhlCLFvzR2xIA HniUOmbNpmUL1iKNLzvsb vh868VjHrDUU4 RLRmiUZqG7VzrC5dNmTqI WWhZHOfB6YgrOSvTSjrF7 71UAfaNeU5WFDyvlOgU9Z sLWFsaWduOiB0 v8L6Fh1Um0TxssbcK5Oxu EFwZmEbEnigIXz8F4IaKp wvdHI+ID76KVUvQS17HUm 8RAN8eFopMFhc ZLAyW3RmdI9iYdLhXEQrU GRkOyc+PHRhYmxlIHdpZH RoPScxMDAlJyBzdHlsZT0 vMr8oTKWaGMDp yLssvMCnUaLgu5ydWUFxJ IukHY0maUebJ5HqqDZ0PM Chh8d8Sm35L91fA1OdyLT +DDEmcOG5wMU6 iB0zVoPqZhC6RUbaU691V uLijRNxStekd4qti5zllG p2CgS3LYRuqhKpkNxmRGG 7f8HwRq76F93p IHdpZHRoPSIxNSUiIHZhb Gazab5bwP9bUq6+PGNvbC I2gFN0bI5zJnVhJoX0MVf oJ284ChBlmSFz Qbmjj8hkn4rovId6DyCpO ZJodnDuuXgyYPV3l5VgMr 78V7HgpNykh0OqKjt8pm4 3xXMrk8J4qPC2 G4GwTKRgurbflRJbiIplM O4iSTUlxkhuEWSguS2gFC AmX5r9OdSnKwC8VXdkR2X hsnO6PQXxoBPj MKYahHYQfA0rnveoy0wco owgEtFfKSZmAXh4BUx7KP QejUtgExLoLOQ3MtT4RAB 5hDZeoS5ykQtw ahwnhV6eIma+VWW6aAIcy HAJAV5bIqvcrOQ+PHRkIH P5kPnfJWdhCMRlbY6uAXG mS3b7HlBhPgY5 OLatU3XwbnR1FXQqhFJtZ CCzgUFIeO5uoijiq6orca kkMqAqIAFsIXq9TKi6LAU saWduOiBsZWZ0 WsW5MAO0yHGejO5ezWozk gjmqC7sCkb+QmlydGggRG J4OCi9K3ObLhd1ZMGheHv rWC7cqOCkAVzn Sj7xiVdyxHfiRA0kQGIna plyt451UnLgb5xhKMGskS AeVGyuYOQ8P45ft7Z2OFG rTXPmPFF4mEK6 lC1rzJrdwrmluONgiZpfw yVwcNvtQXhkWEmcF173SN ZsjWkdNcJjMQk7I2LnHyv 4FRLjrJxvMZ0e tMVmBPmvFw7twUrzjQbbZ X3gJTUqtaphk334KgAoa2 goDMRoyUQcKDxiYIE7O04 zq1U7XMIgMYOh HQM5gVI5mF9vvRrqjdmnt GVmdDsgdmVydGljYWwtYW xgH565GRFjtVuvRbDiyOk 5B3XgUnb1REFg iZgaCW3mhNPdITojPk7gk CiehPwmQE5cLLFuzyftj1 79EuOfw9ijZCPwbZFzVJd nYUP2I91ya7J2 ASLoOBJkIKL7vVP9uR8ls GlnbjogbGVmdDsgdmVydG ibQXxpYPkvX022LSOwoBa nPlBhdGllbnQg YWmrDGn3E0VpNsrwxIJ+P E02VKIdZZ03aTIaeVSqr1 txbSz3AtRgWVGbMZL6pNs sUMxlr6YnCMIp O36ktRSoh8R0TBYmbUjis GJeDqNiuPE9bL4uUShqou tqf7fliftsIfokl1cnew7 6hW98D05mDYkc ZHRoPSIzMCUiIHZhbGlnb w2nuN7yWb0+VRHjqAC9lI V5tS3lUNSoPtO4AXsuF49 9InRvcCIvPjxj q9min3yfxSp7VvN2UELun aKzrDdeUMG9v1MwAc91P0 9sIHdpZHRoPSIyMCUiIHZ icDksle7qyJ8v Ii8+POXqdSX6pMN5lG3cN kMkSmE6JRdlF239VdQomS XeQfclE91vN1OqbJC+PHR tUmp7IAQqkFom AB6pkYZvZSwoDw0vUJE3I zPnGjAbQSaqB7TnVGZpgu jidkwxwMH8DMDaOAVhhG1 9Fk6tmSypDSBx nAZSyD3fojwtu6gplathK tIbEBChPKt8CMp0DFMeyU bpNwAdUHC0DxM8ZEI6iJH pkA4qkSvdmcsi wN0fE8JaHYGfvbltRu62b Y3iSfDaEiW1FNxmLwq+Uk GTHKXFUrddLiHOB9xSJWW KKO25PY65oKCc s9F4bJS3P5MtEVKkqxoux juxeOZ5ACOvSOBciC90jZ QeGRoxIu5ox7T5b198SNQ kRXHrrK14Ba0k tAjtPHHrbOQStI6mauvbb 9ahizbeVzOiVBDhDQs7EI p7VQAwmBjeEeEwKQL2VvT 1POY6jBCfuG3d iLuonwnajM2uNya+MDQvM YHcCTu2QNmkqCQ+PHRkIH F0uAibSOaxXTSpwK4sERL uD5h5PqSqWtU6 KPqiR3NiGMMhjojhDz33o V8pFgLdWxG1KHmvM6Jvyx A8TFTstMWmXVdeYJR3J25 nz3Y1DQAlVOTt PEB4vZH5rS9dqEywznwji GVmdDsgdmVydGljYWwtYW ifX438VDQxzGnmXmRyVFo pOWVsBQ20EV82 uUDvk0J0vVU9P7GeAFTtf ginrgavmFH6TWUmIYDnaH 91cWVeRPmwLg6sh9W0t49 7AZLjRUKakS45 Kj8ppRnhVEMjxFVMhK5en zoai8efefwiQgSmUHQsNC a2HHz7RKOdrCejEhOgRML 9DhT9HQO9dDHw pB6hfCduafbyhV7pWpn+R vAnNYnwLX10DF03vVEuh0 C9sLL4I4CkYJQwjvaqioc qtKQ7QXWhRMHb wQ29vYRsRXkxVr2ll1D9q 462WGZdYZFzsL51Ln7njD rfIHCnkYOOzG2ficyvv1s vcjogIzAwMDAw YUo1QWa0RGVvvOoeWeTvH SJ7RdK3XUU9rHGxyD1jtV zsouhqkH2nVcm+V4T4mPO 0aWVudDwvdGQ+ IN66lv40H8SoNsqnZpu5D SRyPCP7eTX2dA7tMOUcFE muw1P2eAR2O3VeokGpzp3 tv0wmWYFjGRgp P99onYDxd0B8RFVurDR6E TFteNyiZqFucJ25Bwx+PG IwwFiyc1RxNyzhl3cfm6d giVa6FjDdTWXq qjMwhLgiGPK7t7QjKq02O 29sIHdpZHRoPSIzMCUiIH OwnYaiiw9imU1bAl2+PGN olID8vZK1pT4q AkPfJnF6OZogQ110SmYsb GIkEjwuv7tks3redPl4Vf EdHAScqyVngCzlMMF1t5J rYg52A4FzmXoc y0VeAba7bx57gFYrm5N8c JC5B7BqKVIwtsxhkBYjlE irJC4uPXYsgeklMYNczG8 jGRJfJ8c6EdHw SgS0BCvuY4WhwqT9AHWbj UYlKCLruJDIaE1iboidb0 chwgfiCdKrISAzLIe5EAh 0LWFsaWduOiBs QDC1KkZ9RMA7kYGdqC5qt CtzvpbsuP8sKpr+UGh5c2 gxmVMnZF0mdIY5GW05US2 0tWLbk9G3gDS8 G6QdHKBqdhbtwrwdhFH4B WHeRINcbL28Dj5zrPdvTo 3tFWLsRGX6WHQhyUGcU4H dxU9oTqGkNWMd KKFtZ8HfrFCeRGlqP989S AcyIwH2FDBxleTqN3MbNU UwiHlhUoP5q2S5Wm5AUY1 2NF95VP49eBKf m2K2iEL2K9PvDUTlywuok lgqzBR0UCGpHJCnrY69Qq 1zsFnvCa4wUUWrPUD8ZKC opSHlK7OvtC7q TeRnHYNqGECiN2SkeKVbT MizI207RRnmOxC8DOCwer ReU2AxIZGbhDqkQzS2n7R 6Ze4MMz82RT16 QM00oWJas2L1lBR7E9PrC XJykebixtvacIF0FOOdNO YnmZ45Fk5mnMdsDw1xJMU mANK0OUSmxFEg K4UkdY4eJuGaXRIiWJEeU 8OauMBxUTzwN205DHhuDh W5LBXotqZvW7UjUFJuoKu dBhQ5c9U6Ko5K PFjrkve0Q8SoUpnfjDU+P N45SCDeVT03tSDtzLLkr9 hagRn0NpObGHRfAFH7nLf dWWrxi5JmPIGc Y29s (more content not included)... Normal [facility] BUNon 11-21-2022 Urea nitrogen [Mass/Vol] 14 mg/dL Normal 5-21 [facility] Comment on above: Performed By: #### 1 [id number], 2828233, 8769412, 1304375, 86213462, 3265257 #### [facility] [address] [place] [address] CBC w/Indiceson 11-21-2022 Erythrocyte distribution width (RBC) [Ratio] 14.0 % Normal 10.9-14.2 [facility] Comment on above: Performed By: #### 1 3017827, 5813169, 1369682, 7374654, [id number], 0084092 #### [facility] [address] [place] [address] Hematocrit (Bld) [Volume fraction] 38.2 % Normal 34.0-46.0 [facility] Comment on above: Performed By: #### 1 [id number], 1694015, 3544346, 8343063, 61905393, 2503023 #### [facility] [address] [place] [address] Hemoglobin (Bld) [Mass/Vol] 12.3 g/dL Normal 12.0-16.0 [facility] Comment on above: Performed By: #### 1 1578433, 8352814, 4836211, 0486602, 23314195, 5154854 #### [facility] [address] [place] [address] MCH (RBC) [Entitic mass] 31.1 pg Normal 27.0-34.0 [facility] Comment on above: Performed By: #### 1 5858486, 1206800, 5587280, 0724736, 81937737, 7479926 #### [facility] [address] [place], [place] [id number] MCHC (RBC) [Mass/Vol] 32.1 g/dL Normal 31.4-36.0 [facility] Comment on above: Performed By: #### 1 3613097, 7884361, 0366219, 1717060, 50129382, 9965802 #### [facility] [address] [place], [place] [id number] MCV (RBC) [Entitic vol] 96.9 fL Normal 80.0-100.0 [facility] Comment on above: Performed By: #### 1 0287794, 1229445, 9843601, 1557959, 98356655, 3256049 #### [facility] [address] [place] [address] Platelet mean volume (Bld) [Entitic vol] 9.5 fL Normal 6.4-10.8 [facility] Comment on above: Performed By: #### 1 9390620, 5696248, 7110853, 6819545, 03925715, 5918653 #### [facility] [address] [place] [address] Platelets (Bld) [#/Vol] 270.0 E9/L Normal 150.0-500.0 [facility] Comment on above: Performed By: #### 1 3442938, 6329327, 7217243, 8724441, 87758593, 3518417 #### [facility] [address] [place] [address] RBC (Bld) [#/Vol] 4.0 E12/L Low 4.3-5.9 [facility] Comment on above: Performed By: #### 1 5699501, 9963046, 5318816, 3930566, 55490580, 8022604 #### [facility] [address] [place] [address] WBC corrected for nucl RBC Auto (Bld) [#/Vol] 13.7 E9/L High 4.0-11.0 [facility] Comment on above: Performed By: #### 1 6916317, 0773109, 3089195, 7369003, 85838046, 5670631 #### [facility] [address] [place] [address] CHEMISTRYOrdered By: SYSTEM SYSTEM on 11-21-2022 Anion gap [Moles/Vol] 13 mmol/L Normal 6 - 16 mEq/L [facility] Chloride [Moles/Vol] 109 mmol/L Normal 101 - 1 11 mmol/L [facility] CO2 [Moles/Vol] 17 mmol/L Low 21 - 31 mmol/L [facility] Creatinine [Mass/Vol] 0.6 mg/dL Normal 0.5 - 1.3 mg/dL [facility] Remisol GFR/1.73 sq M.predicted among blacks MDRD (S/P/Bld) [Vol rate/Area] mL/min/1.73 m2 Normal >=59mL/min/ 1.73 m2 [facility] S GFR/1.73 sq M.predicted among non-blacks MDRD (S/P/Bld) [Vol rate/Area] mL/min/1.73 m2 Normal >=59mL/min/ 1.73 m2 [facility] Chem S Potassium [Moles/Vol] 3.6 mmol/L Normal 3.5 - 5.3 mmol/L [facility] Remisol Sodium [Moles/Vol] 135 mmol/L Normal 135 - 145 mmol/L [facility] Remisol Urea nitrogen [Mass/Vol] 14 mg/dL Normal 5 - 21 mg/dL [facility] COAGULATIONOrdered By: Genaro Robert on 11-21-2022 aPTT Coag (PPP) [Time] 30.4 s Normal 25.1 - 36.5 second(s) [facility] Auto Coag INR Coag (PPP) [Relative time] 0.9 {INR} Invalid Interpretation Code [facility] Auto Coag PT Coag (PPP) [Time] 9.9 s Normal 9.4 - 1 2.5 second(s) [facility] Auto Coag Consent for Treatmenton 11-12 Consent for Treatment [id number]#1 .00CD:127 Normal [facility] Creatinineon 11-21-2022 Creatinine [Mass/Vol] 0.6 mg/dL Normal 0.5-1.3 [facility] Comment on above: Performed By: #### 1 [id number], 1963777, 2107995, 2829483, 73510959, 9755673 #### [facility] [address] [place] [address] HEMATOLOGYOrdered By: Shasta Eller on 11-21-2022 Erythrocyte distribution width (RBC) [Ratio] 14.0 % Normal 10.9 - 14.2 % [facility] HemeAutoSS Hematocrit (Bld) [Volume fraction] 38.2 % Normal 34.0 - 46.0 % [facility] HemeAutoSS Hemoglobin (Bld) [Mass/Vol] 12.3 g/dL Normal 12.0 - 16.0 gm/dL [facility] HemeAutoSS MCH (RBC) [Entitic mass] 31.1 pg Normal 27.0 - 34.0 pg [facility] HemeAutoSS MCHC (RBC) [Mass/Vol] 32.1 g/dL Normal 31.4 - 36.0 gm/dL [facility] HemeAutoSS MCV (RBC) [Entitic vol] 96.9 fL Normal 80.0 - 100.0 fL [facility] HemeAutoSS Platelet mean volume (Bld) [Entitic vol] 9.5 fL Normal 6.4 - 10.8 fL [facility] HemeAutoSS Platelets (Bld) [#/Vol] 270.0 E9/L Normal 150. 0 - 500.0 E9/L [facility] HemeAutoSS RBC (Bld) [#/Vol] 4.0 E12/L Low 4.3 - 5.9 E12/L [facility] HemeAutoSS WBC corrected for nucl RBC Auto (Bld) [#/Vol] 13.7 E9/L High 4.0 - 11.0 E9/L [facility] HemeAutoSS Lyteson 11-21-2022 Anion gap [Moles/Vol] 13 mmol/L Normal 6-16 [facility] Comment on above: Performed By: #### 1 2545355, 3206862, 9477657, 5750356, 79450651, 4732374 #### [facility] [address] [place] [address] Chloride [Moles/Vol] 109 mmol/L Normal 101-111 [facility] Comment on above: Performed By: #### 1 9954005, 7004382, 9728484, 5833990, 69155796, 9654967 #### [facility] [address] [place] [address] CO2 [Moles/Vol] 17 mmol/L Low 21-31 [facility] Comment on above: Performed By: #### 1 3693485, 2087819, 4267078, 0225686, 19418059, 9420460 #### [facility] [address] [place] [address] Potassium [Moles/Vol] 3.6 mmol/L Normal 3.5-5.3 [facility] Comment on above: Performed By: #### 1 0366342, 3763938, 5871350, 8605395, 61476895, 9987377 #### [facility] [address] [place] [address] Sodium [Moles/Vol] 135 mmol/L Normal 135-145 [facility] Comment on above: Performed By: #### 1 2363553, 3951276, 3334082, 2749746, 13498239, 2180424 #### [facility] [address] [place] [address] PT & PTTon 11-21-2022 aPTT Coag (PPP) [Time] 30.4 second(s) Normal 25.1-36.5 [facility] Comment on above: Result Comment: Para meter 15 days - 4 weeks 1 - 5 months 6 - 11 months 1 - 5 years 6 - 10 years 11 - 17 years PTT Mean: 35.4 (27.6-45.6) Mean: 33.5 (24.8-40.7) Mean: 32.4 (25.1-40.7) Mean: 31.6 (24.0-39.2) Mean: 31.6 (26.9-38.7) Mean: 31.0 (24.6-38.4) Pediatric Reference ranges were obtained from a study by arlen Snyder al. prepared from 1437 samples obtained at 7 different centers using the same coagulation reagent and instrumentation as [facility]. Currently there are no coagulation studies available worldwide for children to 14 days, and no normal ranges. Heparin therapeutic range (represented by Anti-Factor Xa activity of 0.2 - 0.4 U/mL) corresponds to PTT of 56.6 - 109.0 sec. Performed By: #### 1 4891321, 9558340, 1709561, 3637877, 83439429, 5925936 #### [facility] [address] [place] [address] INR Coag (PPP) [Relative time] 0.9 {INR} Invalid Interpretation Code [facility] Comment on above: Result Comment: INR results are specifically intended to assess patients stabilized on long-term Anticoagulation therapy suggested INR?s ?Less Intensive Anticoagulation? 2.0 ? 3.0 Conventional Range 3.0 ? 4.5 Performed By: #### 1 4765679, 1268090, 4035616, 2328578, 66721714, 9507029 #### [facility] [address] [place] [address] PT Coag (PPP) [Time] 9.9 second(s) Normal 9.4-12.5 [facility] Comment on above: Result Comment: 15 d ays - 4 weeks 1 - 5 months 6 -11 months 1-5 years 6-10 years 11 -17 years Mean: 11.2 (9.5-12.6) Mean: 11.0 (9.7-12.8) Mean: 11.0 (9.8-13.0) Mean: 11.3 (9.9-13.4) Mean: 11.7 (10.0-14.6) Mean: 11.8 (10.0 - 14.1) Pediatric Reference ranges were obtained from a study by arlen Snyder al. prepared from 1437 samples obtained at 7 different centers using the same coagulation reagent and instrumentation as [facility]. Currently there are no coagulation studies available worldwide for children to 14 days, and no normal ranges. Performed By: #### 1 [id number], 7314906, 1290994, 6861481, 68823777, 7570052 #### [facility] [address] [place] [address] XR Chest 2 Viewson 3 XR Chest 2 Views Exam Date/Time: 11/21/2022 11:03 EST Reason for Exam: P.A.T. Report IMPRESSION: NO ACTIVE LUNG DISEASE. EXAM: XR Chest 2 Views CLINICAL HISTORY: Shortness of breath P.A.T. COMPARISONS: 04/20/2022 FINDINGS: The heart, mediastinum and pulmonary vasculature are within normal limits. Visualized lung bee are clear. Bones unremarkable. Ordering Provider: Gal Kirkland FINAL REPORT Dictated: 11/21/2022 12:58 pm Kenny Nails MD Signed (Electronic Signature): 11/21/2022 12:58 pm Signed by: Kenny Nails MD Transcribed by: MARCO Technologist: YAIR Technical Comments Radiation Dose: Ka,r in mGy = na DAP = na Normal [facility] eGFRon 11-21-2022 GFR/1.73 sq M.predicted among blacks MDRD (S/P/Bld) [Vol rate/Area] mL/min/{1.73_m2} Normal >=59 [facility] Comment on above: Order Comment: Order added by Discern Expert. Result Comment: eGFR is race adjusted. AA=. Performed By: #### 1 [id number], 2563053, 7806516, 6759076, 89225308, 7640601 #### [facility] [address] [place] [address] GFR/1.73 sq M.predicted among non-blacks MDRD (S/P/Bld) [Vol rate/Area] mL/min/{1.73_m2} Normal >=59 [facility] Comment on above: Order Comment: Order added by Discern Expert. Result Comment: Purchasing Administrative Assistant edgar kidney disease could be indicated at eGFR's of less than 60 mL/min/1.73m2. Kidney failure is indicated at less than 15 mL/min/1.73m2. Performed By: #### 1 [id number], 0100890, 4696066, 4068005, 30302651, 1271019 #### [facility] [address] [place] [address] CNOVon 11-20-2022 CNOV Office Visit ([facility] ) SHAZIA CHOU ([id number]) 1990 F Date Time Provider Department 11/20/22 8:00 AM EILEEN MANZANO [facility] During your visit today, we recorded the following information about you: Pulse Blood pressure Weight Height 67/minute 137/81 85.7 kg 1.702 m Last Period 10/23/22 Eileen Manzano MD 11/20/2022 10:33 AM Signed [facility] New Patient Evaluation Consulting Provider: SELF Individuals who were included in, or assisted with the encounter were: Shazia Manzano MD Chief Complaint/Issues: Shazia Chou is a 31 year old R handed female w PMH HTN, depression, recently diagnosed idiopathic intracranial hypertension, EtOH drinking, H gastric bypass surgery w 100lb weight loss, 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 She lost all peripheral vision and has tunnel vision. It comes and goes, but occurs everyday. Usually in the morning to late afternoon and resolves after she lays down. She was seen at [facility]. She was told openning pressure was 23 cmH2O, . They removed 12cc CSF and headache got beter. Now it's coming back. Initially it's intermettent initially, and now it's quite consistent. Features of headache: constant. Usually in the back or tempos, pressure like feeling, 4/10, with photophobia, no positional change, sometimes nauseated. She gets some tingling in her fingers. She went to see a local neurologist but was told to just keep taking her Topamax. She has been on Topamax for years as a mood stabilizer. She saw optomotrist and was told there were mild pressure building behind her eyes. She has never seen an outbound telemarketing representative. CSF protein 24, Glu 55, Pro 28, She had MRI brain and was told that she has empty sella. She had gastric bypass surgery 2 years ago and lost 100 LB. She did not have weight gain lately. General Examination: BP 137/81 (BP Site: Right Arm, BP Position: Sitting, BP Cuff Size: Regular Adult) Pulse 67 Ht 170.2 cm (5' 7 ) Wt 85.7 kg (189 lb) LMP 10/23/2022 SpO2 100% BMI 29.60 kg/m? General: Awake, alert, interactive, no acute distress, good nutritional status, normal development, well-kept Skin: Rash: absent Pigmentation: absent HEENT: Head: normocephalic, no dysmorphism Eyes: normal Oropharynx: normal Neck: Carotid bruit: absent Movements: free Lymphadenopathy: absent Extremities: Deformity/contracture : absent Distal pulses: present Edema: absent Trophic change: absent Spine: Deformity: absent Heart: Regular S1 S2 normal Lungs: Clear to auscultation Abdomen: Soft, nontender Neurological Exam Mental Status Alert, fully oriented, attentive, with normal cognition, memory, speech and affect. Cranial Nerves Visual bee intact. Fundi with mild papilledema bilaterally. Pupils reactive. Extraocular movements conjugate and full. No ptosis. No nystagmus. Facial sensation intact. Face symmetric and strong. Palate and tongue normal. XI normal. Motor Examination and Coordination Motor examination with normal bulk, strength and tone. No drift. Normal rapid alternating movements and coordination. No adventitious movements or significant tremor. Reflexes Deep tendon reflexes graded by [facility] Deep Tendon Reflexes Right Left Biceps 2+ 2+ Triceps 2+ 2+ Brachioradialis 2+ 2+ Patellar 2+ 2+ Achilles 2+ 2+ Plantar Downgoing Downgoing Sensation Sensation intact to light touch, pinprick, proprioception and vibration. Gait Arises easily. Casual gait, tandem, and Romberg are normal. Can rise on heels and toes. 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 Idiopathic intracranial hypertension -- Idiopathic intracranial hypertension: LP opening pressure 23 cm water. Mild papilledema in both eyes. I do not have the MRI results but it seems that there was no other lesions. I discussed with her about the cause of IIH and treatment options. I think switching Topamax to Diamox might provide better effect. I discussed with her about the side effect of Diamox and she agreed. She needs to follow with outbound telemarketing representative every 6 months. In some patients with intracranial hypertension, there might be a concurrent transverse sinus stenosis and transverse sinus stenting may resolve the symptoms. I will do MRV. --HTN --H depression --Headache: there are a (more content not included)... Normal [facility] Consultation Noteon 11-19-19 Consultation Note [id number]# 1.00CD:127 Normal [facility] Physician Referralon 023 Physician Referral [id number]# 1.00CD:127 Normal [facility] Consent for Procedure/Surger yon 11-06-2022 Consent for Procedure/Surgery [id number]# 1.00CD:127 Normal [facility] Physician Orderon 11-06-2022 Physician Order [id number]# 1.00CD:127 Normal [facility] Ambulatory Visit Summaryon 0 11-03-2022 Ambulatory Visit Summary JOSÉ ANTONIO, SHAZIA Bach :1990 Visit Date:11/03/2022 Ambulatory Visit Instructions Your Diagnosis Bipolar disorder Borderline personality disorder Alcohol abuse Smoker Obesity Adult BMI 29.0-29.9 kg/sq m Your Care Team Attending Physician - Nakia Shah Primary Care Physician - Nakia Shah This Is Your Medications List APAP/butalbital/caffe ine (APAP/butalbital/caff eine 300 mg-50 mg-40 mg oral capsule) acetaminophen (Tylenol) brexpiprazole (Rexulti 3 mg oral tablet) calcium citrate (calcium (as calcium citrate) 200 mg oral tablet) duloxetine (Cymbalta) lisinopril (lisinopril 5 mg Tab) multivitamin with minerals (Multi-Day Plus Minerals) naltrexone (naltrexone 50 mg oral tablet) nicotine (nicotine 14 mg/24 hr Transderm ER Film) ondansetron (Zofran 8 mg Tab) oxcarbazepine (Trileptal) pantoprazole (Pantoprazole [address] Tab) topiramate (Topamax 100 mg Tab) trazodone [Image Removed: STOP]Stop taking these medications gabapentin (gabapentin 300 mg Cap) promethazine (Phenergan) Procedures Performed Endoscopic plantar fasciotomy (02/16/2020), Endoscopic plantar fasciotomy (06/02/2019), LEFT ELBOW ULNAR NERVE DECOMPRESSION (02/11/2019), x3, Foot, Gastric bypass operation, History of tubal ligation, Lumbar puncture to lower intracranial pressure. Discharge Vitals Temperature (Oral) 36.8 ?C Heart Rate (Peripheral) 85 Blood Pressure 104/80 Height 170 cm Height 67 in Weight 83.9 kg Weight 184.58 lb BMI 29.03 What to do next Scheduled Follow-Up Appointments Thursday 10:00 AM EDT With: Nakia Shah Where: [facility] Primary Care Normal [facility] Family Medicine Office/Clini c Noteon 11-03-2022 Family Medicine Office/Clinic Note Chief Complaint 1 month F/U to manage meds and to meet New PCP History of Present Illness Pt presents today to discuss meds. Pt reports her sobriety is under control. 50 days sober. Currently not drinking. Pt reports she started drinking heavily about 16 mo ago when her mother . Pt is currently using Naltrexone. Pt is seeing Joseph and Krystin Shine at [facility]. Pt is also in therapy with Jacki Nicole at [facility]. Pt has an upcoming appt for her teeth to be pulled and for hysterectomy at the end of November with Dr. Das so she will be off the naltrexone d/t anesthesia. Patient has high blood pressure. Patient denies any CP or SOB, acute injury/trauma, delirium, seizures, vision changes, nausea, vomiting, back pain, MALDONADO, dizziness or irritation at this time. Pt denies recent use of tobacco, decongestants/sudafed , albuterol, NSAIDs. Pt is taking medications as prescribed and is tolerating well. No med side effects. Currently taking: lisinopril 5mg once daily Physical Exam Vitals & Measurements T: 36.8 ?C(Oral) HR: 85(Peripheral) BP: 104/80 SpO2: 98% HT: 67 in HT: 170 cm WT: 83.9 kg WT: 184.58 lb BMI: 29.03 General: Well developed, well nourished, in no acute distress Eyes: Pupils equal, round, and reactive to light. Conjunctivae and sclerae normal, and extraocular movements intact Ears: TM clear, grossly normal hearing Nose: No deformity, discharge, inflammation, or lesions Mouth: MMM. Oropharynx and posterior pharynx without lesions or exudates. Tongue WNL Neck: Neck supple. No lymphadenopathy. Trachea midline. No thyroid, masses, tenderness, or enlargement noted. No bruit. Lungs: Normal respiratory effort and clear to auscultation Cardio: Regular rate and rhythm, normal S1 and S2, no murmur, no rub Abdomen: not assessed Musculoskeletal: No deformity or scoliosis noted. Normal range of motion. Joints normal. No erythema, edema, effusion, or ecchymosis Extremity: No clubbing, cyanosis or edema. Neurologic: Grossly normal Skin: No rashes, ulcerations, or suspicious lesions Mental Status: Alert and oriented x3. Normal mood and affect Assessment/Plan 1. Bipolar disorder (F31.9: Bipolar disorder, unspecified) Continue to follow with [facility]. Denies S/H thoughts. 2. Borderline personality disorder (F60.3: Borderline personality disorder) see #1 3. Alcohol abuse (F10.10: Alcohol abuse, uncomplicated) 50 days sober. Discussed at length that I do not recommend Gabapentin 300 mg BID for alcohol dependency. Continue following with inclusion specialist for refills if they approve this. Pt verbalized understanding. 4. Smoker (F17.200: Nicotine dependence, unspecified, uncomplicated) Pt is interested in medication assisted smoking cessation at this time of using. Will start them on 14mg NRT patches d/t currently smoking 1.5ppd. Will reassess in 2 month. Discussed nicotine withdrawal sx including: increased appetite and weight gain, changes in mood (dysphoria or depression), insomnia, irritability, anxiety, difficulty concentrating, and restlessness. Nicotine withdrawal symptoms peak in the first three days of smoking cessation and subside over the next three to four weeks. Pt verbalized understanding. We discussed possible adverse effects of NRT patches including n/v/d, abd pain, MALDONADO and local irritation. Counseled pt to use one patch daily and to remove and replace the patch with a new one each morning to any non-hairy skin site; rotate the site daily to avoid skin irritation. Also counseled pt that if leaving the patch on overnight causes the frequently reported side effects of insomnia and vivid dreams, remove the patch at bedtime and replace with a new one the next morning. Smoking cessation rates are similar whether the patch is left on for 24 hours or taken off at night. Pt verbalized understanding. Ordered: nicotine, 1 patch(es), Topical, Daily for 30 day(s), 30 patch(es), Refill(s) 1, [facility]/pharmacy #[id number], 170, cm, 11/03/22 13:04:00 EST, Height/Length Dosing, 83.9, kg, 11/03/22 13:04:00 EST, Weight Dosing 5. Obesity (E66.9: Obesity, unspecified) The standard range for ages 18 and older is >=18.5 and < 25 kg/m2. Your BMI today was above this range, this falls in the overweight to obese category and there are medical benefits to weight loss. We can offer counselling, referral, and/or medical support in addressing this problem. Your BMI and weight management will be followed at subsequent visits. 6. Adult BMI 29.0-29.9 kg/sq m (Z68.29: Body mass index [BMI] 29.0-29.9, adult) The standard range for ages 18 and older is >=18.5 and < 25 kg/m2. Your BMI today was above this range, this falls in the overweight to obese category and there are medical benefits to weight loss. We can offer counselling, referral, and/or medical support in addressing this problem. Your BMI and weight management will be followed at subsequent visits. Ordered: Body Mass Index (BMI) documented 3008F Current tobac (more content not included)... Normal [facility] Comment on above: Result Comment: Elec tronically Signed By: Charisse TEIXEIRA, Nakia Brock\.br\Date and Time Signed: 11/03/22 13:29 EST Patient Educationon 11-03-19 Patient Education BMI for Adults Body mass index (BMI) is a number that is calculated from a person's weight and height. BMI may help to estimate how much of a person's weight is composed of fat. BMI can help identify those who may be at higher risk for certain medical problems. How is BMI used with adults? BMI is used as a screening tool to identify possible weight problems. It is used to check whether a person is obese, overweight, healthy weight, or underweight. How is BMI calculated? BMI measures your weight and compares it to your height. This can be done either in [place] or metric measurements. Note that charts are available to help you find your BMI quickly and easily without having to do these calculations yourself. To calculate your BMI in [place] measurements, your health care provider will: 1. Measure your weight in pounds (lb). 2. Multiply the number of pounds by 703. ? For example, for a person who weighs 180 lb, multiply that number by 703, which equals 126,540. 3. Measure your height in inches (in). Then multiply that number by itself to get a measurement called inches squared. ? For example, for a person who is 70 in tall, the inches squared measurement is 70 in x 70 in, which equals 4900 inches squared. 4. Divide the total from Step 2 (number of lb x 703) by the total from Step 3 (inches squared): 126,540 ? 4900 = 25.8. This is your BMI. To calculate your BMI in metric measurements, your health care provider will: 1. Measure your weight in kilograms (kg). 2. Measure your height in meters (m). Then multiply that number by itself to get a measurement called meters squared. ? For example, for a person who is 1.75 m tall, the meters squared measurement is 1.75 m x 1.75 m, which is equal to 3.1 meters squared. 3. Divide the number of kilograms (your weight) by the meters squared number. In this example: 70 ? 3.1 = 22.6. This is your BMI. How is BMI interpreted? To interpret your results, your health care provider will use BMI charts to identify whether you are underweight, normal weight, overweight, or obese. The following guidelines will be used: ? Underweight: BMI less than 18.5. ? Normal weight: BMI between 18.5 and 24.9. ? Overweight: BMI between 25 and 29.9. ? Obese: BMI of 30 and above. Please note: ? Weight includes both fat and muscle, so someone with a muscular build, such as an athlete, may have a BMI that is higher than 24.9. In cases like these, BMI is not an accurate measure of body fat. ? To determine if excess body fat is the cause of a BMI of 25 or higher, further assessments may need to be done by a health care provider. ? BMI is usually interpreted in the same way for men and women. Why is BMI a useful tool? BMI is useful in two ways: ? Identifying a weight problem that may be related to a medical condition, or that may increase the risk for medical problems. ? Promoting lifestyle and diet changes in order to reach a healthy weight. Summary ? Body mass index (BMI) is a number that is calculated from a person's weight and height. ? BMI may help to estimate how much of a person's weight is composed of fat. BMI can help identify those who may be at higher risk for certain medical problems. ? BMI can be measured using [place] measurements or metric measurements. ? To interpret your results, your health care provider will use BMI charts to identify whether you are underweight, normal weight, overweight, or obese. This information is not intended to replace advice given to you by your health care provider. Make sure you discuss any questions you have with your health care provider. Document Released: 05/12/2005 Document Revised: 08/13/2018 Document Reviewed: 07/14/2018 Elsevier Patient Education ? 2020 [employer] Alcohol Abuse and Dependence Information, Adult Alcohol is a widely available drug. People drink alcohol in different amounts. People who drink alcohol very often and in large amounts often have problems during and after drinking. They may develop what is called an alcohol use disorder. There are two main types of alcohol use disorders: ? Alcohol abuse. This is when you use alcohol too much or too often. You may use alcohol to make yourself feel happy or to reduce stress. You may have a hard time setting a limit on the amount you drink. ? Alcohol dependence. This is when you use alcohol consistently for a period of time, and your body changes as a result. This can make it hard to stop drinking because you may start to feel sick or feel different when you do not use alcohol. These symptoms are known as withdrawal. How can alcohol abuse and dependence affect me? Alcohol abuse and dependence can have a negative effect on your life. Drinking too much can lead to addiction. You may feel like you need alcohol to function normally. You may drink alcohol before work in the morning, during the day, or as soon as you get home from work in the evening. T (more content not included)... Normal [facility] CBC AUTO DIFFon 10-30-2022 BASO # 0.0 103/ul Normal 0.0-0.1 [facility] Comment on above: Performed By: #### C JENNIE PATRICK LIPA #### [facility] [address] [place] [address] Dr. Manuel Sandhu Basophils/100 WBC (Bld) 0.5 % Normal 0.2-2.0 [facility] Comment on above: Performed By: #### C JENNIE PATRICK LIPA #### [facility] [address] [place] [address] Dr. Manuel Sandhu EO # 0.1 103/ul Normal 0.0-0.7 [facility] Comment on above: Performed By: #### C JENNIE PATRICK LIPA #### [facility] [address] [place] [address] Dr. Manuel Sandhu Eosinophils/100 WBC (Bld) 1.6 % Normal 0.9-7.0 [facility] Comment on above: Performed By: #### C JENNIE PATRICK LIPA #### [facility] [address] [place] [address] Dr. Manuel Sandhu Erythrocyte distribution width (RBC) [Ratio] 13.8 % Normal 11.0-15.0 [facility] Comment on above: Performed By: #### C JENNIE PATRICK LIPA #### [facility] [address] [place] [address] Dr. Manuel Sandhu Hematocrit (Bld) [Volume fraction] 38.7 % Normal 36.0-48.0 [facility] Comment on above: Performed By: #### C JENNIE PATRICK LIPA #### [facility] [address] [place] [address] Dr. Manuel Sandhu Hemoglobin (Bld) [Mass/Vol] 12.9 g/dL Normal 12.0-16.0 [facility] Comment on above: Performed By: #### C JENNIE PATRICK LIPA #### [facility] [address] [place] [address] Dr. Manuel Sandhu IG # 0.03 10e3/ul Normal 0.00-0.03 [facility] Comment on above: Performed By: #### C JENNIE PATRICK LIPA #### [facility] [address] [place] [address] Dr. Manuel Sandhu IG % 0.4 % Normal 0.0-0.5 [facility] Comment on above: Performed By: #### C JENNIE PATRICK LIPA #### [facility] [address] [place] [address] Dr. Manuel Sandhu LYMPH # 2.1 103/ul Normal 1.2-3.8 [facility] Comment on above: Performed By: #### C JENNIE PATRICK LIPA #### [facility] [address] [place] [address] Dr. Manuel Sandhu Lymphocytes/100 WBC (Bld) 25.1 % Normal 20.5-60.0 [facility] Comment on above: Performed By: #### C MP, JENNIE, LIPA #### [facility] [address] [place] [address] Dr. Manuel Sandhu MANUAL DIFF REQ NO Normal [facility] Comment on above: Performed By: #### C MP, JENNIE, LIPA #### [facility] [address] [place] [address] Dr. Manuel Sandhu MCH (RBC) [Entitic mass] 32.0 pg Normal 26.7-34.0 [facility] Comment on above: Performed By: #### C MP, JENNIE, LIPA #### [facility] [address] [place] [address] Dr. Manuel Sandhu MCHC (RBC) [Mass/Vol] 33.3 g/dL Normal 29.9-35.2 [facility] Comment on above: Performed By: #### C MP, JENNIE, LIPA #### [facility] [address] [place] [address] Dr. Manuel Sandhu MCV (RBC) [Entitic vol] 96.0 fL Normal 81.0-99.0 [facility] Comment on above: Performed By: #### C MP, JENNIE, LIPA #### [facility] [address] [place] [address] Dr. Manuel Sandhu MONO # 0.5 103/ul Normal 0.3-0.8 [facility] Comment on above: Performed By: #### C MP, JENNIE, LIPA #### [facility] [address] [place] [address] Dr. Manuel Sandhu Monocytes/100 WBC (Bld) 5.7 % Normal 1.7-12.0 [facility] Comment on above: Performed By: #### C MP, JENNIE, LIPA #### [facility] [address] [place] [address] Dr. Manuel Sandhu NEUT # 5.6 103/ul Normal 1.4-6.5 [facility] Comment on above: Performed By: #### C MP, JENNIE, LIPA #### [facility] [address] [place] [address] Dr. Maunel Sandhu Neutrophils/100 WBC (Bld) 66.7 % Normal 43.0-75.0 [facility] Comment on above: Performed By: #### C JENNIE PATRICK LIPA #### [facility] [address] [place] [address] Dr. Manuel Sandhu Platelet mean volume (Bld) [Entitic vol] 10.9 fL Normal 9.5-13.5 [facility] Comment on above: Performed By: #### C JENNIE PATRICK LIPA #### [facility] [address] [place] [address] Dr. Manuel Sandhu PLT 310 103/ul Normal 150-450 [facility] Comment on above: Performed By: #### C JENNIE PATRICK LIPA #### [facility] [address] [place] [address] Dr. Manuel Sandhu RBC 4.03 106/ul Critically low 4.20-5.40 [facility] Comment on above: Performed By: #### C JENNIE PATRICK LIPA #### [facility] [address] [place] [address] Dr. Manuel Sandhu WBC 8.4 103/ul Normal 4.0-11.0 [facility] Comment on above: Performed By: #### C JENNIE PATRICK LIPA #### [facility] [address] [place] [address] Dr. Manuel Sandhu ER URINE PROFILEon 3 Bilirubin Ql (U) Negative Normal NEGATIVE [facility] Comment on above: Performed By: #### U MICRO, ERUR #### [facility] [address] [place] [address] Dr. Manuel Sandhu Clarity (U) CLEAR Normal CLEAR [facility] Comment on above: Performed By: #### U MICRO, ERUR #### [facility] [address] [place] [address] Dr. Manuel Sandhu Color (U) LT. YELLOW Normal YELLOW [facility] Comment on above: Performed By: #### U MICRO, ERUR #### [facility] [address] [place] [address] Dr. Yilan Sadnhu ERUAHD A micrscopic examination will be performed if indicated. Normal [facility] Comment on above: Performed By: #### U MICRO, ERUR #### [facility] [address] [address] [address] Manuel Sandhu Glucose Ql (U) Negative Normal NEGATIVE [facility] Comment on above: Performed By: #### U MICRO, ERUR #### [facility] [address] [address] [address] Manuel Sandhu Hemoglobin Ql (U) LARGE Abnormal NEGATIVE [facility] Comment on above: Performed By: #### U MICRO, ERUR #### [facility] [address] [address] [address] Manuel Sandhu Ketones Ql (U) Negative Normal NEGATIVE [facility] Comment on above: Performed By: #### U MICRO, ERUR #### [facility] [address] [place] [address] Dr. Manuel Sandhu LEUKOCYTES TRACE Abnormal NEGATIVE [facility] Comment on above: Performed By: #### U MICRO, ERUR #### [facility] [address] [address] [address] Manuel Sandhu Nitrite Ql (U) Negative Normal NEGATIVE [facility] Comment on above: Performed By: #### U MICRO, ERUR #### [facility] [address] [place] [address] Dr. Manuel Sandhu pH (U) 6.5 [pH] Normal 5-9 [facility] Comment on above: Performed By: #### U MICRO, ERUR #### [facility] [address] [address] [address] Manuel Sandhu SPEC GRAVITY <=1.005 Abnormal 1.005-<=1.0 25 [facility] Comment on above: Performed By: #### U MICRO, ERUR #### [facility] [address] [place] [address] Dr. Manuel Sandhu UA PROTEIN Negative Normal NEGATIVE/ TRACE [facility] Comment on above: Performed By: #### U MICRO, ERUR #### [facility] [address] [address] [address] Manuel Sandhu UR MICRO IND INDICATED Normal [facility] Comment on above: Performed By: #### U MICRO, ERUR #### [facility] [address] [place] [address] Dr. Manuel Sandhu Urobilinogen Qn (U) 0.2 {Lucila'U}/dL Normal 0.2 - 1. 0 [facility] Comment on above: Performed By: #### U MICRO, ERUR #### [facility] [address] [place] [address] Dr. Manuel Sandhu PROF CHEM 8 (BAS METB)on Anion gap [Moles/Vol] 11.7 mmol/L Normal [facility] Comment on above: Performed By: #### C CELINA JENNIE, LIPA #### [facility] [address] [place] [address] Dr. Manuel Sandhu Calcium [Mass/Vol] 9.1 mg/dL Normal 8.5-10.1 [facility] Comment on above: Performed By: #### C MP JENNIE, LIPA #### [facility] [address] [place] [address] Dr. Manuel Sandhu Chloride [Moles/Vol] 105 mmol/L Normal 98-107 [facility] Comment on above: Performed By: #### C MP JENNIE, LIPA #### [facility] [address] [place] [address] Dr. Manuel Sandhu CO2 [Moles/Vol] 26.8 mmol/L Normal 21.0-32.0 [facility] Comment on above: Performed By: #### C MP, JENNIE, LIPA #### [facility] [address] [place] [address] Dr. Manuel Sandhu Creatinine [Mass/Vol] 0.62 mg/dL Normal 0.55-1.02 [facility] Comment on above: Performed By: #### C MP, JENNIE, LIPA #### [facility] [address] [place] [address] Dr. Manuel Sandhu EGFR-AF EQUATORIAL GUINEAN >60 Normal >=60 [facility] Comment on above: Performed By: #### C MP, JENNIE, LIPA #### [facility] [address] [address] [address] Manuel Sandhu EGFR-NON AF EQUATORIAL GUINEAN >60 Normal >=60 [facility] Comment on above: Performed By: #### C MP, JENNIE, LIPA #### [facility] [address] [address] [address] Manuel Sandhu Glucose [Mass/Vol] 92 mg/dL Normal 74-106 [facility] Comment on above: Performed By: #### C MP, JENNIE, LIPA #### [facility] [address] [address] [address] Manuel Sandhu Potassium [Moles/Vol] 3.5 mmol/L Normal 3.5-5.1 [facility] Comment on above: Performed By: #### C CELINA JENNIE, LIPA #### [facility] [address] [address] [address] Manuel Sandhu Sodium [Moles/Vol] 140 mmol/L Normal 136-145 [facility] Comment on above: Performed By: #### C CELINA JENNIE, LIPA #### [facility] [address] [address] [address] Manuel Sandhu Urea nitrogen [Mass/Vol] 8.0 mg/dL Normal 7.0-18.0 [facility] Comment on above: Performed By: #### C CELINA JENNIE, LIPA #### [facility] [address] [address] [address] Manuel Sandhu Urea nitrogen/Creatinine [Mass ratio] 12.9 mg/mg Normal [facility] Comment on above: Performed By: #### C CELINA JENNIE, LIPA #### [facility] [address] [address] [address] Manuel Sandhu URINE MICROSCOPIC ONLYon BACTERIA NONE SEEN Normal NONE SEEN [facility] Comment on above: Performed By: #### U MICRO, ERUR #### [facility] [address] [address] [address] Manuel Sandhu Bacteria identified Cx Nom (U) NOT INDICATED Normal [facility] Comment on above: Performed By: #### U MICRO, ERUR #### [facility] [address] [address] [address] Manuel Sandhu CAST NONE SEEN Normal NONE SEEN [facility] Comment on above: Performed By: #### U MICRO, ERUR #### [facility] [address] [address] [address] Manuel Sandhu Crystals LM Nom (Urine sed) NONE SEEN Normal NONE SEEN [facility] Comment on above: Performed By: #### U MICRO, ERUR #### [facility] [address] [address] [address] Manuel Sandhu Epithelial cells LM Ql (Urine sed) FEW Abnormal NONE SEEN /RARE [facility] Comment on above: Performed By: #### U MICRO, ERUR #### [facility] [address] [address] [address] Manuel Sandhu MUCOUS TRACE Abnormal NONE SEEN [facility] Comment on above: Performed By: #### U MICRO, ERUR #### [facility] [address] [address] [address] Manuel Sandhu RBC 5-10 Abnormal 0-2 [facility] Comment on above: Performed By: #### U MICRO, ERUR #### [facility] [address] [address] [address] Manuel Sandhu WBC 2-5 Abnormal NONE SEEN [facility] Comment on above: Performed By: #### U MICRO, ERUR #### [facility] [address] [address] [address] Manuel Sandhu Coding Summary.on 10-29-2022 Coding Summary. CD:[id number] G h0bWw+PGhlYWQ+XB1QKGE sU79ykHRchI9RJ8fFFB6P MSREPFHXVW0QWR3nhIN5M YwsD3NhmpBn BkybuTTyTM34PXw0YRO8h RaoSSepcG5jpGYmC5e5Qf PxUY19kK80HDqbFYJdDcM 3LjZpbjsgbWFy D1rwUvBoaGZxJmj+PHRhY mxlIHdpZHRoPScxMDAlJy AuqHvkOC0lFm9dSUPuHHK vbGxhcHNlOiBj s9hfXRLuPYuwLO2oyJfyK 9GrpZC4NJBth0m6My55cQ I+AEDeMUG3hUsvBOqzf72 3CyGkh2zjTND9 oJCsEIdiSGK7X22fh5D0Q QBrYHQcESB2uMS9oA7xsD ujhkmmW8EzcBYaNqN7ZEV 7bJNxwJ0zeRhp tlmosX7bSlh+B01EIG8DR XNZTM6SElr0K3VzHgzxaK I+KW26WPWaNO33gEWxfKC mk9illPy2MlNf NHKwDJE7nLguSLldm8SbO HPsU83uvJOyw7Z3OPEsdD hbvOLkOnHzjCH0yS7sMIg ykcrze2obgwkv Mssao8yutw00vB27M96bZ MmmWLPuCCT4PCTxXRCiaQ jczv8zxS0jSq7+OVogh5x dg2dvwXr1IjWu PEFgyaUhjQtnPSM4c0PiL c02M3NvoQyyr8EhPxq6po 90rYKto9F7rBT8JGcqYVL rnZ2hDKsuVjE3 LUJsZoEjaH44vJTnJHwsN c5anLbuhNsmBT2yCVViuw dgZCUplV0oTMJlyCMsjNm iPN2lLYOhcdrl s346GaSiPGO4ZBWtpCXjB 8GelS9qMoNkCHXiAYFfH9 DdsITvPOorU195TUqlUsA 6WCXetwVaK5Te HYOyrPvrSeX9z4B0Gs4Bj 4GfymbbFYT5PMzrTIWaZh V3HeMnPwA6D0AsAwd1QTE ehOzgQQ9bQ4Na PBFdvwbsnjzxwRB4XTWaP AQlnZ30bXNyGCmrEu3hw1 B2v564OJRwVWDmeX86Ak1 udDogMTBwdCBU rO9gsdsay2ufysoyJgRzT PIjXDb4ZZr0OZOvjBueSu UjHAL2NoG0ZPC1vUIhdD7 fjTnqtddufR9c Oyc+H34jeE0cGUR0XZT8i algZLOffmXeAZ20PN82Q6 RyPjwvdGFibGU+PGRpdiB lvYwaLR8kOlOb z9xtm7KiCVhjN4BsFREwH BvaBkv0GRZfVAY7vPV4iM 3gPCUnIXbnz5H3oAA9K3X qgtWzke8si6yj FZQqYCruV19dxXXgp3X2N UZyrEH6SLQoqYwgXyBeuS 93Oyc+PDBeqGeed0MyYmu xr5exo6tzuJl5 XwGaGWBdwrZslJfbFQV3o 3KhZa81O00oQKltSHHyLL TtQWRgIRQjmTfrcf9opY3 wIi8+PGNvbCB3 rOE5qZ7yEBNlMnW6PMilB 930XiEuhSXqPccjc5gzj5 nupMg4TbSaZNKvdiYgpZi pAVM9i6KeHz03 Z78lPZorJZPzYWFlMWRmN UWaoWhyyq3kyC0sJa8+PC 7ru4ifey43jY70pQF+PHR wSSP8zFhyHUwe XAOnoO1rBObkTlI0GGPsL lBvcC66qGBdQPuzRd3jiV owuJftEP6iKINylxedl08 7SgGql7vnACIg xLXqOXivJNM8D22nx2U5S NPkQAMxHUY2dIK1tL0kcW lnbjogbGVmdDsgdmVydGl xHHniBDebT654 IHRvcDsnPlBhdGllbnQgT wYuZXy8E0ByHhw8CFXldY gbQH1vtFAfJJwpHj1duAn oaWitFD4yXHWj aivgf049IzZnj0dkGJImh AHgJTvmTKP0B42zt2S0II YvGRKcIAR1uJG8rW9rjHh nbjogbGVmdDsg hhLcpJkzWVlnSJiaJ913Q HRvcDsnPkJpcnRoIERhdG A8QA28AN90zKNlv9Z7sFP 6C0MeBSXtacya qksrnAK4EQMxZVDfcR30I t2ecRtoGn2qBLHqEXN2RA LryFGiK7GurJ9kExHfRAF ySVDlN5WiuMVz TYvlC976IRduHkX6QDNbn tLkS4GsTHYtfQewXlA6u7 Z2Lj3ES2N8TC79NX85wYP qz0Q9lIE0X0Pc FLWdsibnejpusPD6DAWkE BTwpU42Pe3knQfqRn4rOZ WaEHZ9VYGioVPdQ4ZtxH5 yOiAjMDAwMDAw H5VqmVHaMGxiL256NFyuP kQ8OSFedzGcS9DxNHWopI irVtK2k1O6Ac5OYMp2YT1 5EA88iRRqf7L6 iJD8R7ZmKDZiediqizftb UH5CHUgEAKudW88Oq0npE tkAp1aQAQaQYW6DORagIP rC6RjwQ5mZlEx KWHnETVbV5BnwORaWUznI 967BRilMpT1JMFiziUkP0 WiQNWezOrtJjE1t9I6Tb8 MSKBgCB84GKP8 cGD3FV87DP41U9KeDzuuk GFibGU+PHRhYmxlIHdpZH RoPScxMDAlJyBzdHlsZT0 zTg1lXMRhBHIq tWqiyICcCeBzb1ozJMKzA IldBK1naArwL9VskRU7WH Vor9w8Cw11F55iM2WsbXX +WLHrtUC8tDO4 kG6lZbRlCmZ4FNenE777Z xLczBMnRbdvc1djd3gkhT n8KeA2HESplqTeyLloZNE 9h4SiLg28N98c IHdpZHRoPSIxNSUiIHZhb Fxzlp3xjL9xWm8+PGNvbC U7nEU9hC1sVwUfOxZ7SNr dI826ObOczYRx Xzdjp2fup2qskFe9EdTsN NEdlgNltUwnDFS5k9UoJv 58Y6OnnZogi1PgJzo6th8 0kDOhb9H6dBR5 B9PpPDUrwpigqPYvsWlqK Q8dPRLjpioqQCTpgB2zPC FeB4i9SdNsRuP2DPekV2Z rmmW4HVPcsSHo BGylSWO3Y43rb7N1YJAjJ JVuFTY0jEG2oG6wcYvkbx ogbGVmdDsgdmVydGljYWw pUCkzC434AHZx oUnrZMKhoX5qYBRazYIbg OqkLE5eHWMfcjkmGyBZDt FQJD7nOOrZS6KTF2GuNKs vdGQ+PHRkIHN0 sPplADjiTIUeaY3uCOUwO 8y9SfHdLyH8DWqqN9PrQT SjscwyTy14oM2vRyIlPfI 6GTqhP9UvgvG8 EQSafBQaTXlwMIO3T45tc 9Q6MOToFAKeJLZ9zNS9bR 1hbGlnbjogbGVmdDsgdmV ydGljYWwtYWxp L130UNSrfAwtMfN3LoF8C hY2DWj0F8YzCnh4WEStsO bwZX6dyDJsKLyfAb7idPv shIrpTB3tPIHi mrnvXLQmgG3mVHPpnSSdq FowRR2oKVSenylqm411Km TpXKT0JZFndXAmG5UiaC0 yOiAjMDAwMDAw A6GrxWQqUDxmX469KRnyL uK7XEXjlkViL8RzYHEtqL rlTeO3f7S9Uo8rBbKTIDL yczwvdGQ+PHRk NKU9tSpmZAnaMKZotQ4pK LNcR8w8ZhWkPzN8MGixK7 VxQAAzxqxiFx00fG8vAvM kBdG0LTwuB5Zz bxV3LWQigEUsTQewGBI4T 72ke8J2BQPbWREkORR1nW B2hZ0cbOdzokreaTVjyFv gdmVydGljYWwt FEwwG076YNSsaToyQmVzd WFsZTwvdGQ+QQNtLGT3vJ orHNluMUFcyQ1gRSNaE2b 0IoOnStO5VKia B4ShTDPdbkksJb91qY1hS tZwXgB4JPptQ2ZmjwF8EU TniYDpKFbvFLI4X48up8M 0HFVnDAZmKJH9 zIC0mZ3gnVixijrjjXVss DsgdmVydGljYWwtYWxpZ2 32HVEgbBwgUormQlBNeq9 aTU4kVsftwCR+ KA16uq31W2CdLvacIrn0B GBqXJH3uCS4gT8iJCZfJQ jnh4P3aTN9T9BkddFrja1 he9mxWLLeOXkp X97fdAGwp2P8UYEtnYD4P PKvkYthAvIilD97Kdt+PG OopZvwh9WwQezat8mab0d gkAu6FkAaRUNn opPajGvbGUR5o7EyWx12G 29sIHdpZHRoPSIzMCUiIH RpaCnjxb3bmR6lEg1+PGN swFB7dPZ6gS2r JwMyMhN4YFeaV396FtYys IEkCbljg9tlx5njjGj6Ni LpWZBahyOmvWdfHIL6h2I pCp67J0TymGwa r3QgMaf4vf61jUBdu0I5c CB0W6XcTCAlnauoeSXmhJ nvUU5jULQidsxaTNCzxW4 nVNGgG1l2DvRo RbT8NTbbG1YvxhJ0UUKwy BPdSTVzsHRHaH9iumtez2 jzrureGhChDDWpBFi5VTc 0LWFsaWduOiBs JFX5CaL7IXU8fNIvqE7ag EwolufihR1oQhe+UGh5c2 efpTMrEJ3kjSD3JP30DZ9 9wSIwo4A8eSW0 G5LxUFTfqetwwcgjvIJ5L LHeLVFhzJ20Ij1ppBkoWp 7gJXWmMTM9CGWqzDYvI2J ggM4nDoSoLRNg HUCpY1RlmZHiPUdaL418G TtmDrI4TDZhxsBlI1OuJJ IhtSsuJvK0m5X0Bp2RSQ7 1TL63VK22xSKa n1V8iUQ0O4WpUHLpezyvh wbhjTE6JZSlBNMbuK49Wv 3aaUsqVy8aZYTeOKT2BFV ouKKlC5HkuD3j FvCeAWGkIOWjY2SzjJOmE ZreY276WXseXoP7XGBbrq OeR9TxLAJtzBrjPkV7s4T 1Px5TOk30EI57 XI39yYBza4J8bRR3U9PfN YTavlkmgboroFB1CTYiFA FxbX49My7auTdfLt9vYZP hJMX3UWHuxMXj U6OhgD6bArEoGDBbSTTgA 7CgySUkPKdxB917SHmpQp P4MRTydvGsX3BzHXMrhBk fTvC4y4X5Vs0M BAdudos3U6KwHaaglFI+P K21MZCvRC99pPKcxFQmu2 doqWj0HaDtWDZmKDO5dTj gLEolz3LpBGPx Y29s (more content not included)... Normal [facility] Physician Orderon 10-23-2022 Physician Order [id number] 0 [id number]# [id number] Normal [facility] Coding Summary.on 10-17-2022 Coding Summary. CD:[id number] G h0bWw+PGhlYWQ+IM5IMSC nO74kvLDlaC6TY7uNWO8S AOPTBAGCLS1QYR0enWQ7X OszT7RwgaSj IcpwkZZiGW60INe4CTN3w XkoKXmxyS8uxPVpJ1o1Hx VnUP57lZ01DPxkLBWxZyV 3LjZpbjsgbWFy F7wpFsRfcPNeBfy+PHRhY mxlIHdpZHRoPScxMDAlJy VzhBzpNH3uTr9bLTIcWHT vbGxhcHNlOiBj y3sdBXDoYHccNS5ojWqnY 8FayWU3QEEel3s7Jz06bU I+BGViPXH3wZrfWAmpc45 1TfWby4wtMAY1 oMAuWCqpIUO5S38rw7U4V DHrXPGoCIN4kTI7sX5fiI itryfkC3VxyIAgVkE1TXX 1kKMaiN5clHug wfjzhR9vCvh+O63EEH2JS ANLZR0MIzx4R6XuJkoivC I+NT35TPSjLU45hKKscPA ev7xrhPc1KqMt TTDgKHH6vTemIStqr0CiC QNnP49zySCms6C5SODzyZ euqZFwFbBswXY8zD5lRGo juvqai9qboyla Ourti5gqub58rR64F38wW YsbXGXgFUY5RCUfRBEwtM cxcc3mbV1fQb0+AUgqv0h pe6dlrVs4YmPv VQVoxdVmqVlxTIV7y5VqO n56K1VocMbij0SfVed1dg 73tPHyk6M4lGE1AFamNQZ yvR1iRHrbBhD8 TBOdXdBryZ63bELyYZpvG e0onHnerZcmHO6jPUWchb umXMEqoN0hVDLwiBOueQg lDZ3oOSIudwbk e085SxStHXZ6TYNcgMQtG 2GknE9eYeMeRZPeVNQvN3 DpcZTxEPzuO863LQxeBeJ 4XOPdteDkF0Ul CAMxeVhdYaT3o5R7Fu3Kq 0HtqpfhSPY5EXjnYODyKr XqOjSfXqA1W4NoTau2ZMT ddVziDP1cX0Ek IBTnkzkvrmxmoJB5JMOyH TKvsK98lCVpHKngQl4ni7 U7q114OJYqCGCwrN95Lt0 udDogMTBwdCBU vC2qdrpux5ftswceBxStY ZIvRQp4WIu5BFGjlTwiAk PaKPS9VlY0XDT8sQGiyS0 zpUjgqbnrdK0f Oyc+C45xjS5gYNV3WHH8s iohAGQeosOaLG09MO57I4 RyPjwvdGFibGU+PGRpdiB lwDpaWF7aLoAo l4qsv9VgCDumS9JoGAMvO SioFnl6WQYiZYG1pJK7zD 2aHXBgMFrlx8E1vAM1X9D zekQlhe4fr7ts REYkEBizE16wzNPbc2G0Y NKtpWL3HSRchKghAlNjsE 93Oyc+NCBvsAsax1OvBrs xz8bhe5rntSt3 IyWwFZEnooUyuCcuSSI1t 5SjLz17Q79aMDzhBUVhHT IcYRZoVKUrhVesdy3kqO9 wIi8+PGNvbCB3 bHA5rH0vQVBgNzN6RBleW 217LwSjtGMdNwfdk9xnl1 jipRs8CeNwHCNwyxRmsAz lHKG7o6UjWp16 Y87lOYkcKRNxHGGnXMZwH HLcvUexdz0pxV5rCy0+PC 5qd8ysvm00rH60wVZ+PHR fMCP9tKsdZIph TCLcuD9xOVhjRkY9LVQyQ rFhvV51xBNsDFjuYb0fmA luuQjmVO6sWGQgxbddx39 1YfRmi0eqMGJe fFEdSXwcHKF4I10bw8C5O OMaNIFlZRS0dIE0mT6vaV lnbjogbGVmdDsgdmVydGl bUKngANwiN957 IHRvcDsnPlBhdGllbnQgT cBvRSm7T6NbHxe9PIZjgH blMT6zfGVhEXwtQl7twWu hjSjtXH0lYPCz zczin470XxJhj9jcXCRow XXdZVzhNMD8X41hh2K6RY IgQEJuSAC5kWF5mO7fpCd nbjogbGVmdDsg xnFufHopWEixAZzuH175T HRvcDsnPkJpcnRoIERhdG L2SX62MV35xOIae2R3eZW 0E9WhOWWkshbo scvtzTH9MTQsDXDhgL98S j4akAfpFe4wAIIrSRQ2VI RwlAEpA5YskI3dOtIvDFS oPHSeA2LcsKTc WHuvF771WSjxYkY0FPTyh fOwO1FrMTYgoYonNeA1r6 H1Np0ZV7R3BV20HL83gJM ry7A2nWB9W5Tk IEAbxygecqazdBH0IYNtM JBlnQ12Pd8tkBzlCn5fMG GlZME0WMImeIUqA5CjxN4 yOiAjMDAwMDAw L9LxvOEtIPmdC423QZvkR zP2RMOslfDxV1VhUBAxxG mfTmX6x0Q6Gq0AZYn0UB7 3XF62kLGcr8G5 lIE6C8UmGOUlrqgsfkerz AC1BFHyEVDlaF36Ib4glO qhGl1tVYPmVBX4HEExyXW qW4PziJ5eYxAd NZAuEGUaT0VzhVRmUGvyQ 254ZGgrDgO8MMAwlhGkW3 LlOESjwDfyBqJ1a7A0Dh4 YVBBnHO00RJH4 eFL3ZP01UE23B5TbWgyby GFibGU+PHRhYmxlIHdpZH RoPScxMDAlJyBzdHlsZT0 pWk9tWZAwBAVj fBacbPAcEeUwm4slIXUiS XafUN4kuIzyK7QugSV7VI Nyy1x6Sn39J33vB8RmlLY +SKQgpCA4uVS2 dG9xMnJiEgL0YKuxF505Q kRtjGDnJcrur8vpi9ehrP z8RrG9QWHmvgIhdCscDRQ 2w5IkIn26S24o IHdpZHRoPSIxNSUiIHZhb Rcbdi9wuY3tSs0+PGNvbC L4hJQ5yQ4hFiAgLxP8LHz bQ603HrYidAVk Vjvsz3mpl6fnhAh7QtTwN AWeubPorGtxXGW1i5PqXd 07Y7IzkPgrn4SxPyn7fj9 5cBIna1Q2mRZ6 T7MlCTLwihuyaAGgsZebP S8fEEVgiygrBKBjkW6pNH KpK6x9AfRrWcR9DYxuA2V wrxR3OZNjsTFn MLtwMPX0I26cm1H1ANFeP HWwFSO3fKS7pC6ttWabih ogbGVmdDsgdmVydGljYWw lMPrqE601BCHt oDfkIJXtfX2oWZNjuKDpa CboIK4kNEJfqizgAsNYTz HRNI7rPWqPR0FKT4HhQXm vdGQ+PHRkIHN0 vMkxPIahRJPooX6gAROnN 0u3PtNsJaI7XZdzU9XvUW WkwrigQg16mT4jQpHtBfT 5KYjeQ2LepmZ5 QKAadROhBMpqCOK5W65ze 3P9XEUeRUHbRTD1nCL2qZ 1hbGlnbjogbGVmdDsgdmV ydGljYWwtYWxp A204QGNepPkhLqZ0OdN9I pK5SHw6Y3HpRwh3OOIakK twIR4pbTXePTntEk0tuHg naDirRP3zPIPy akwjBLFotT8kMCSutOJpu DsjVM2tBQXkhekka576Qo MwTSR5TFFueARgF2BynW2 yOiAjMDAwMDAw T7AzvWHjMYdiN021SSiaK sN4EVUsfqZhK2QrZCHpuE axXkN4u1N3Gm4uLxWIFSA yczwvdGQ+PHRk KEM8eJbuZFylSBNbdW9qS JCfA8l0YnPqGpS5DGvgL8 QoEIQqzyjbRa47pR4eKaS dAzO5XYvpF5Ju iyE7KOStyMFsAYlzNLH4R 33ru7Y1ZBMbVEYlIXR0wZ C4aD4srRbsafabzUUsmZa gdmVydGljYWwt SFadN606UUUprXydIeLev WFsZTwvdGQ+UPLxHGB7cD htGIzwWFEwsV8iVCAfS5f 2MnYsWeV5GPwk S9MtURYxqkowUj34uD2cK rSkUaC6MEgwZ8FccfJ6SU JlaAZaBLtvSVU8K11am1M 9KBNqEAEhNKU3 gWV8pQ3vyCiodefzbHWus DsgdmVydGljYWwtYWxpZ2 68XJGpwLczMu80uHNlqHj tjfL9F4ZgHgpa dHI+OR61ZINrIX78sFFwf OPot1fwvCf0FgSqQZZfRC H8tKzcKWtfl4KxOOUzB53 khZWuu4G3ANGe gQvxhLWxUvVcmVY7dO9nK Smrtohik6xqsiyrNajch0 pkne81wT64G56zIAxwTHJ oPSIzMCUiIHZh eCouan0soK5lWm5+PGNvb LU9hZX6zQ0gAfCqMhB9WI gbY960NbTbqVKzYuhcx1w qc8niwLn4SsOx ZWKzrgMkeOjcCSS1s7CeC t71R37zUYtdNKJnBGOqKE EgYNCqxLgygi0ouP5eZq7 +QB1cu4ezci50 mS69wHQ+UXYtXOI3xBseG SfvXHMazP9aLTsbZvH7ES DkWeDjtL44oZXzFGyeTu9 vdSzrlPgeLX9e NTUhwaypz668KjRmv8swY PHcrCGwTMbsQSV5X32mv9 Y9JXGuAIWoNGX0rBZ5iH7 hbGlnbjogbGVm dDsgdmVydGljYWwtYWxpZ 675RGFhwEmsYoZpxHCzH7 ifmxXSJE9iNxlavRF+PHR dEDR2tZccAQly XYIlqK1sNLSwB2l6UfWvX pN4SEwcA5FfouU9DRYxwT DiUEGcqRWMvO5gribby2r vcjogIzAwMDAw JDb0MMh5CDPtqRsjMqGcJ PU5ZqL7KMR9lZXbmG9doY zxfmrwdB2jBzb+RklOOjw vdGQ+PHRkIHN0 iCbeOWmtVQOlbJ5qODDpU 2i2TmEdNoB5ZRpzM2Mhpw Y6MLZzmABgYYTppRCPmM3 ccrlsj1pmfwbd FwKxETLhLAi3VHj1XXGim KmrCtDmLCT9FtE2XQI1pF IifZ3hpHdhkpidpT0oWvt +TVJOOjwvdGQ+ BZSeOYA8jMplWEfxRTPtj V6nHXHiK9v2KyLbOjP6JX ofT3EjofU1JRIyiWMsJQE ndBNGqX7xtlfj d0qvvlecXaEyBLThAXn2V Bn9HVYuuRxcZtHyRPR3Vx C2ABD1bMAtaU8wiGdbivs coP7dVcx+UGF5 PYE2FG68PO93D9SbCcgep GFibGU+PHRhYmxlIHdpZH RoPScxMDAlJyBzdHlsZT0 gKk4pRQWeGWTd bGxh (more content not included)... Normal [facility] US Pelvis Non-OB Completeon 10-17-2022 US Pelvis Non-OB Complete Exam Date/Time: 10/14/2022 13:35 EST Reason for Exam: N93.8 Report IMPRESSION: HETEROGENEOUS FIBROID UTERUS WITH MILDLY THICKENED AND ILL-DEFINED CENTRAL ENDOMETRIAL COMPLEX, POSSIBLY ADENOMYOSIS. 2.9 CM MILDLY COMPLICATED RIGHT OVARIAN CYST. NO FREE FLUID OR OTHER FINDINGS OF CONCERN IDENTIFIED. EXAM: US Pelvis Non-OB Complete, Transvaginal Non-OB DATE: 10/14/2022 CLINICAL HISTORY: N93.8. COMPARISON: None available. TECHNIQUE: Transabdominal ultrasound was performed to visualize the entirety of the pelvis. Transvaginal scanning was performed to provide better detail of the uterus and ovaries. FINDINGS: The uterus is mildly heterogeneous in echotexture, with a section scar in atypical appearance, and few small uterine leiomyomata. The largest is noted in the left anterior body in a subserosal location, measuring approximately 2.3 x 1.7 x 1.4 cm. The central endometrial complex is mildly thickened with somewhat ill-defined margins to the myometrium, possibly adenomyosis. An approximately 2.9 x 2.4 x 2.1 cm cyst with an approximately 1.5 cm daughter cyst is present within the abdomen is unremarkable right ovary. The left ovary appears within normal limits. Equivalent blood flow is noted to both ovaries on Doppler analysis. There is no significant free fluid, abnormal adnexal masses, or other findings of concern identified. The uterus is anteverted and slightly anteflexed in position, with measurements and estimated volume: Uterus Length: 8.6 cm Uterus Width: 6.3 cm Report Uterus Height: 4.3 cm Uterus Volume: 120.5 cm3 Endometrium Thickness: 1.7 cm The right ovary measurements and estimated volume: Right Ovary Length: 4.7 cm Right Ovary Width: 4.3 cm Right Ovary Height: 2.7 cm Right Ovary Volume: 27.7 cm3 The left ovary measurements and an estimated volume are: Left Ovary Length: 3.0 cm Left Ovary Width: 2.7 cm Left Ovary Height: 2.2 cm Left Ovary Volume: 9.3 cm3 FINAL REPORT Dictated: 10/17/2022 8:48 am Jeremias Adrian MD Signed (Electronic Signature): 10/17/2022 8:48 am Signed by: Jeremias Adrian MD Transcribed by: MARCO Technologist: KYLE Technical Comments Transabdominal Ultrasound Performed Transvaginal Ultrasound Performed Uterus Position Anteverted [facility] US Transvaginal Non-OBon US Transvaginal Non-OB Exam Date/Time: 10/14/2022 13:36 EST Reason for Exam: N93.8 Report PLEASE SEE US Pelvis Non-OB Complete REPORT DATED: 10/14/2022. FINAL REPORT Dictated: 10/17/2022 8:48 am Jeremias Adrian MD Signed (Electronic Signature): 10/17/2022 8:48 am Signed by: Jeremias Adrian MD Transcribed by: MARCO Technologist: KYLE [facility] Consent for Treatmenton 09-16 Consent for Treatment [id number]:127 [facility] Physician Orderon 10-08-2022 Physician Order [id number] .[id number]:127 [facility] Ambulatory Visit Summaryon 0 09-24-2022 Ambulatory Visit Summary SHAZIA CHOU :1990 Visit Date:09/24/2022 Ambulatory Visit Instructions Your Diagnosis Bipolar disorder Borderline personality disorder Alcohol abuse BMI 30.0-30.9,adult Smoker Your Care Team Attending Physician - Walker PRODUCT SAFETY TESTER, Aimee R Primary Care Physician - Aimee Walker CNP This Is Your Medications List gabapentin (gabapentin 300 mg Cap) Contact prescribing physician if questions or concerns APAP/butalbital/caffe ine (APAP/butalbital/caff eine 300 mg-50 mg-40 mg oral capsule) acetaminophen (Tylenol) brexpiprazole (Rexulti 3 mg oral tablet) calcium citrate (calcium (as calcium citrate) 200 mg oral tablet) duloxetine (Cymbalta) lisinopril (lisinopril 5 mg Tab) multivitamin with minerals (Multi-Day Plus Minerals) naltrexone (naltrexone 50 mg oral tablet) ondansetron (Zofran 8 mg Tab) oxcarbazepine (Trileptal) pantoprazole (Pantoprazole [address] Tab) promethazine (Phenergan) topiramate (Topamax 100 mg Tab) trazodone Procedures Performed Endoscopic plantar fasciotomy (02/16/2020), Endoscopic plantar fasciotomy (06/02/2019), LEFT ELBOW ULNAR NERVE DECOMPRESSION (02/11/2019), x3, Foot, Gastric bypass operation, History of tubal ligation, Lumbar puncture to lower intracranial pressure. Discharge Vitals Temperature (Oral) 36.8 ?C Heart Rate (Peripheral) 77 Blood Pressure 118/64 Height 170 cm Height 67 in Weight 86.8 kg Weight 190.96 lb BMI 30.03 What to do next You Need to Schedule the Following Appointments Follow Up with Aimee Walker CNP When: Within 3 months Where: [address] [place] [address]- [phone] Medications What How Much When Why Instructions Changed gabapentin (gabapentin 300 mg Cap) 1 Capsules By Mouth 2 times a day Alcohol abuse Duration: 30 Days Pickup at [facility]/pharmacy #[id number] Unchanged acetaminophen (Tylenol) 325 Milligram By Mouth Every 4 hours as needed for as needed for pain Contact prescribing physician if questions or concerns Unchanged APAP/ butalbital/ caffeine (APAP/ butalbital/ caffeine 300 mg-50 mg-40 mg oral capsule) 1 Capsules By Mouth Every 4 hours as needed for for headache Headache after spinal puncture Contact prescribing physician if questions or concerns Unchanged brexpiprazole (Rexulti 3 mg oral tablet) 1 Tablets By Mouth Every day Contact prescribing physician if questions or concerns Unchanged calcium citrate (calcium (as calcium citrate) 200 mg oral tablet) By Mouth 2 times a day Contact prescribing physician if questions or concerns Unchanged duloxetine (Cymbalta) 60 Milligram By Mouth 2 times a day per dr chaparro Contact prescribing physician if questions or concerns Unchanged lisinopril (lisinopril 5 mg Tab) 1 Tablets By Mouth Every day Elevated blood pressure reading Contact prescribing physician if questions or concerns Unchanged multivitamin with minerals (Multi-Day Plus Minerals) By Mouth Every day Contact prescribing physician if questions or concerns Unchanged naltrexone (naltrexone 50 mg oral tablet) 1 Tablets By Mouth Every day Contact prescribing physician if questions or concerns Unchanged ondansetron (Zofran 8 mg Tab) 1 Tablets By Mouth 2 times a day Nausea Contact prescribing physician if questions or concerns Unchanged oxcarbazepine (Trileptal) Contact prescribing physician if questions or concerns Unchanged pantoprazole (Pantoprazole [address] Tab) Contact prescribing physician if questions or concerns Unchanged promethazine (Phenergan) Contact prescribing physician if questions or concerns Unchanged topiramate (Topamax 100 mg Tab) 1 Tablets By Mouth Every day Contact prescribing physician if questions or concerns Unchanged trazodone Contact prescribing physician if questions or concerns Pharmacy Information [facility]/pharmacy #[id number]: [address] [place], [place] [phone] Allergies Abilify (suicidal) Coconut Oil (Swelling, Itching) Problems Ongoing - Any problem that you are currently receiving treatment for. Alcohol abuse Axillary lymphadenopathy Bipolar disorder BMI 30.0-30.9,adult Borderline personality disorder Grief reaction Headache after spinal puncture History of bypass of stomach Left breast mass Leukocytosis Over weight Pancreatic mass Smoker Somatic dysfunction of cervical region Somatic dysfunction of head region Somatic dysfunction of thoracic region Trapezius muscle spasm Vitamin D deficiency Historical - Any problem that you are no longer receiving treatment for. Anxiety Borderline personality disorder Depression Disorder of oral soft tissue Intentional benzodiazepine overdose Omental infarction Recovering alcoholic in remission Education Materials Tobacco Use Disorder Tobacco use disorder (TUD) occurs when a person craves, seeks, and uses tobacco, regardless of the consequences. This disorder can cause problems with (more content not included)... Normal [facility] Family Medicine Office/Clini c Noteon 09-24-2022 Family Medicine Office/Clinic Note Chief Complaint pt here for medication for mental health. pt was given Gabapentin for withdraw and they will not perscribe more than a week. History of Present Illness Pt presents today to discuss meds. She was put on Gabapentin 300 mg BID for alcohol dependency by Psych provider at [facility] but was told she needed to get it from her PCP from now on. Was previously seeing Dr. Chaparro but she felt like she was not listening to her. Still sees Jacki for counseling. Tolerating: feels amazing. Up cleaning. Not laying in bed all day. Has not cleaned her house in 3 months. Has been feeling better. LEONOR Ruiz at [facility] is her addiction provider. Currently not drinking. Med s/e: denies. No drowsiness. Alcohol use: 8 days ago was her last drink Drug use: no Smoking: >1 ppd. Review of Systems PHQ Score Initial Depression Screen Score: 0 Constitutional: no fever, no chills, no sweats, no weakness, no fatigue, no body aches. Skin: no jaundice, no rash, no skin lesions, no petechiae. Eyes: no eye irritation, no eye drainage, no vision changes. Respiratory: no shortness of breath, no cough, no wheezing. Cardiovascular: no chest pain, no palpitations, no edema. Gastrointestinal: no nausea, no vomiting, no diarrhea, no bleeding, no abdominal pain. Neurovascular: no numbness, no tingling, no headaches, no dizziness. Psychological: see depression screen. Physical Exam Vitals & Measurements T: 36.8 ?C(Oral) HR: 77(Peripheral) BP: 118/64 SpO2: 99% HT: 67 in HT: 170 cm WT: 86.8 kg WT: 190.96 lb BMI: 30.03 General: well developed, well groomed, obese, in no acute distress. Eyes: pupils equal, round, reactive to light. Conjunctivae normal and sclera clear. Ears: bilateral external canals intact , no discharge. Hearing grossly normal to conversational speech. Neck: supple, no masses palpable. Trachea midline. Lungs: normal respiratory effort. Lungs clear and equal to auscultation throughout all bee anterior and posterior. Cardiovascular: S1 and S2 present, with regular rate and rhythm. No murmur. Abdomen: soft, non-distended, non-tender. Bowel sounds active throughout. Musculoskeletal: Gait steady without assistance. Neurologic: Cranial nerves II-XII grossly intact. Skin: Likely, warm and dry. No rashes, ulcerations, or suspicious lesions noted on visible/exposed skin. Mental status: alert and oriented x 3. Normal mood and affect, normal behavior for age. Assessment/Plan 1. Bipolar disorder (F31.9: Bipolar disorder, unspecified) Continue to follow with Desi. Denies S/H thoughts. 2. Borderline personality disorder (F60.3: Borderline personality disorder) See #1. 3. Alcohol abuse (F10.10: Alcohol abuse, uncomplicated) 8 days sober. Continue Gabapentin 300 mg BID for alcohol dependency. Continue following with inclusion specialist. Ordered: gabapentin, 300 mg = 1 cap(s), Oral, BID, X 30 day(s), # 60 cap(s), Refills(s) 2, Pharmacy: [facility]/pharmacy #[id number], 170, cm, 09/24/22 7:09:00 EST, Height/Length Dosing, 86.8, kg, 09/24/22 7:09:00 EST, Weight Dosing 4. BMI 30.0-30.9,adult (Z68.30: Body mass index [BMI] 30.0-30.9, adult) The standard range for ages 18 and older is >=18.5 and < 25 kg/m2. Your BMI today was above this range, this falls in the obese category and there are medical benefits to weight loss. We can offer counselling, referral, and/or medical support in addressing this problem. Visit [employer].gov for useful information to help make better choices when eating. Your BMI and weight management will be followed at subsequent visits. 5. Smoker (F17.200: Nicotine dependence, unspecified, uncomplicated) Strongly recommended tobacco cessation. Cigarette smoking harms nearly every organ of the body, causes many diseases, and reduces the health of smokers in general. Quitting smoking lowers your risk for smoking-related diseases and can add years to your life. Visit www.smokefree.gov for helpful resources including free telephone support. If you decide on prescription treatment to help you quit, we would be happy to provide these. Follow-up With When Contact Information Aimee Walker CNP Within 3 months [address] [place] [address] [phone] Additional Instructions: Patient Education Tobacco Use Disorder BMI for Adults Alcohol Use Disorder Borderline Personality Disorder, Adult Managing Bipolar Disorder Problem List/Past Medical History Ongoing Alcohol abuse Axillary lymphadenopathy Bipolar disorder BMI 30.0-30.9,adult Borderline personality disorder Grief reaction Headache after spinal puncture History of bypass of stomach Left breast mass Leukocytosis Over weight Pancreatic mass Smoker Somatic dysfunction of cervical region Somatic dysfunction of head region Somatic dysfunction of thoracic region Trapezius muscle spasm Vitamin D deficiency Historical Anxiety Borderline personality disorder Depression Disorder of oral soft tissue Inten (more content not included)... Normal [facility] Comment on above: Result Comment: Elec tronically Signed By: Aimee Walker CNP\Date and Time Signed: 09/24/22 07:25 EST Medication Consenton 023 Medication Consent [id number] .[id number]:127 Normal [facility] Patient Educationon 09-24-19 23 Patient Education Mental and Behaviora Health Tobacco Use Disorder Tobacco use disorder (TUD) occurs when a person craves, seeks, and uses tobacco, regardless of the consequences. This disorder can cause problems with mental and physical health. It can affect your ability to have healthy relationships, and it can keep you from meeting your responsibilities at work, home, or school. Tobacco may be: ? Smoked as a cigarette or cigar. ? Inhaled using e-cigarettes. ? Smoked in a pipe or hookah. ? Chewed as smokeless tobacco. ? Inhaled into the nostrils as snuff. Tobacco products contain a dangerous chemical called nicotine, which is very addictive. Nicotine triggers hormones that make the body feel stimulated and works on areas of the brain that make you feel good. These effects can make it hard for people to quit nicotine. Tobacco contains many other unsafe chemicals that can damage almost every organ in the body. Smoking tobacco also puts others in danger due to fire risk and possible health problems caused by breathing in secondhand smoke. What are the signs or symptoms? Symptoms of TUD may include: ? Being unable to slow down or stop your tobacco use. ? Spending an abnormal amount of time getting or using tobacco. ? Craving tobacco. Cravings may last for up to 6 months after quitting. ? Tobacco use that: ? Interferes with your work, school, or home life. ? Interferes with your personal and social relationships. ? Makes you give up activities that you once enjoyed or found important. ? Using tobacco even though you know that it is: ? Dangerous or bad for your health or someone else's health. ? Causing problems in your life. ? Needing more and more of the substance to get the same effect (developing tolerance). ? Experiencing unpleasant symptoms if you do not use the substance (withdrawal). Withdrawal symptoms may include: ? Depressed, anxious, or irritable mood. ? Difficulty concentrating. ? Increased appetite. ? Restlessness or trouble sleeping. ? Using the substance to avoid withdrawal. How is this diagnosed? This condition may be diagnosed based on: ? Your current and past tobacco use. Your health care provider may ask questions about how your tobacco use affects your life. ? A physical exam. You may be diagnosed with TUD if you have at least two symptoms within a 12-month period. How is this treated? This condition is treated by stopping tobacco use. Many people are unable to quit on their own and need help. Treatment may include: ? Nicotine replacement therapy (NRT). NRT provides nicotine without the other harmful chemicals in tobacco. NRT gradually lowers the dosage of nicotine in the body and reduces withdrawal symptoms. NRT is available as: ? Pklh-vrj-wafclln gums, lozenges, and skin patches. ? Prescription mouth inhalers and nasal sprays. ? Medicine that acts on the brain to reduce cravings and withdrawal symptoms. ? A type of talk therapy that examines your triggers for tobacco use, how to avoid them, and how to cope with cravings (behavioral therapy). ? Hypnosis. This may help with withdrawal symptoms. ? Joining a support group for others coping with TUD. The best treatment for TUD is usually a combination of medicine, talk therapy, and support groups. Recovery can be a long process. Many people start using tobacco again after stopping (relapse). If you relapse, it does not mean that treatment will not work. Follow these instructions at home: Lifestyle ? Do not use any products that contain nicotine or tobacco, such as cigarettes and e-cigarettes. ? Avoid things that trigger tobacco use as much as you can. Triggers include people and situations that usually cause you to use tobacco. ? Avoid drinks that contain caffeine, including coffee. These may worsen some withdrawal symptoms. ? Find ways to manage stress. Wanting to smoke may cause stress, and stress can make you want to smoke. Relaxation techniques such as deep breathing, meditation, and yoga may help. ? Attend support groups as needed. These groups are an important part of long-term recovery for many people. General instructions ? Take qfow-jgj-kcieqsk and prescription medicines only as told by your health care provider. ? Check with your health care provider before taking any new prescription or remr-svf-tlufqis medicines. ? Decide on a friend, family member, or smoking quit-line (such as 4-424-ULPF-NOW in the [place] that you can call or text when you feel the urge to smoke or when you need help coping with cravings. ? Keep all follow-up visits as told by your health care provider and therapist. This is important. Contact a health care provider if: ? You are not able to take your medicines as prescribed. ? Your symptoms get worse, even with treatment. Summary ? Tobacco use disorder (TUD) occurs when a person craves, seeks, and uses tobacco regardless of the consequences. ? This condition may be diagn (more content not included)... Normal [facility] 09-12-20 [facility] Case Information Case Priority: None Programs: -- Referral Source: Commissary Manager Referral Reason: Care coordination Case Type: Transition Care Management Risk Score: -- Case Status: Active (August 14, 2022) Date Assigned: August 14, 2022 Assigned By: Daisy Rodgers RN Date Enrolled: August 14, 2022 Assigned Primary Personnel: Daisy Rodgers RN Assigned Secondary Personnel: Cecy Cannon RN Case Physician: -- Problems Ongoing Alcohol abuse Axillary lymphadenopathy Bipolar disorder BMI 29.0-29.9,adult Borderline personality disorder Grief reaction Headache after spinal puncture History of bypass of stomach Left breast mass Leukocytosis Over weight Pancreatic mass Recovering alcoholic in remission Smoker Somatic dysfunction of cervical region Somatic dysfunction of head region Somatic dysfunction of thoracic region Trapezius muscle spasm Vitamin D deficiency Historical Anxiety Borderline personality disorder Depression Disorder of oral soft tissue Intentional benzodiazepine overdose Omental infarction Procedure/Surgical History Endoscopic plantar fasciotomy (02/16/2020), Endoscopic plantar fasciotomy (06/02/2019), LEFT ELBOW ULNAR NERVE DECOMPRESSION (02/11/2019), x3, Foot, Gastric bypass operation, History of tubal ligation, Lumbar puncture to lower intracranial pressure. Home Medications APAP/butalbital/caffe ine 300 mg-50 mg-40 mg oral capsule, 1 cap(s), Oral, q4hr, PRN calcium (as calcium citrate) 200 mg oral tablet, Oral, BID Cymbalta, 60 mg, Oral, BID lisinopril 5 mg Tab, 5 mg= 1 tab(s), Oral, Daily Multi-Day Plus Minerals, Oral, Daily Pantoprazole [address] Tab Phenergan Rexulti 3 mg oral tablet, 3 mg= 1 tab(s), Oral, Daily Topamax 100 mg Tab, 100 mg= 1 tab(s), Oral, Daily trazodone Trileptal Tylenol, 325 mg, Oral, q4hr, PRN Zofran 8 mg Tab, 8 mg= 1 tab(s), Oral, BID, 1 refills Allergies Abilify (suicidal) Coconut Oil (Swelling, Itching) Social History Alcohol - Medium Risk, 07/01/2021 Current, Liquor, 3-5 times per week, 01/29/2022 Substance Abuse - Denies Substance Abuse, 02/11/2019 Tobacco - High Risk, 02/07/2020 10 or more cigarettes (1/2 pack or more)/day in last 30 days Tobacco Use:. Never Smokeless Tobacco Use:. Cigarettes, Yes, 08/22/2022 Family History Cardiac arrest: Mother and Grandparent. Diabetes mellitus type 1: Mother and Grandparent. Hypertension: Mother and Grandparent. Primary malignant neoplasm of bladder: Father. Primary malignant neoplasm of female genital organ: Mother. Screenings and Assessments 08/14/22 12:46:00 Result Name Value Comment Phone Call Monitoring Consent Agreed to continue call Phone Verification Patient Information Full name, street address and date of verified CM Program Enrollment Provides verbal consent for enrollment Goals and Interventions Care Plan Progress Note TCM call #4- Patient stated she is doing pretty good. Has been getting tension headaches on and off . Saw Neurologist this week and he prescribed her a muscle relaxer but patient could not recall name and unable to check at this time. Stated she has not yet taken it. Continues to have occasional blurry vision but usually clears with eye blinking. Denies any nausea. Stated appetite is fair but is drinking well. Blood pressure this morning was 135/97. Denies any further questions or concerns. Explained that this was the final call in the TCM program and to call the office with any future questions or concerns. Communication Events Date: September 12, 2022 Method: Phone call Type: Outbound Duration (min): 8 Outcome: Case discussion Contact Type: Patient Contact Name: SHAZIA CHOU Notes: TCM call #4 - see case summary note.- Final call. Created By: Patricia Dubon RN Date: September 05, 2022 Method: Phone call Type: Outbound Duration (min): 3 Outcome: Case discussion Contact Type: advertising operations coordinator Contact Name: Daisy Rodgers RN Notes: TCM #3 - see case summary note. Created By: Daisy Rodgers RN Date: August 29, 2022 Method: Phone call Type: Outbound Duration (min): 2 Outcome: Case discussion Contact Type: advertising operations coordinator Contact Name: Daisy Rodgers RN Notes: TCM #2 see case summary note. Created By: Daisy Rodgers RN Date: August 14, 2022 Method: Phone call Type: Outbound Duration (min): 10 Outcome: Case discussion Contact Type: advertising operations coordinator Contact Name: Daisy Rodgers RN Notes: TCM #1 - Spoke with patient for initial TCM program call; Patient Summary sent to PCP. Created By: Daisy Rodgers RN [facility] 09-05-20 [facility] Case Information Case Priority: None Programs: -- Referral Source: Commissary Manager Referral Reason: Care coordination Case Type: Transition Care Management Risk Score: -- Case Status: Active (August 14, 2022) Date Assigned: August 14, 2022 Assigned By: Daisy Rodgers RN Date Enrolled: August 14, 2022 Assigned Primary Personnel: Daisy Rodgers RN Assigned Secondary Personnel: Cecy Cannon RN Case Physician: -- Problems Ongoing Alcohol abuse Axillary lymphadenopathy Bipolar disorder BMI 29.0-29.9,adult Borderline personality disorder Grief reaction Headache after spinal puncture History of bypass of stomach Left breast mass Leukocytosis Over weight Pancreatic mass Recovering alcoholic in remission Smoker Somatic dysfunction of cervical region Somatic dysfunction of head region Somatic dysfunction of thoracic region Trapezius muscle spasm Vitamin D deficiency Historical Anxiety Borderline personality disorder Depression Disorder of oral soft tissue Intentional benzodiazepine overdose Omental infarction Procedure/Surgical History Endoscopic plantar fasciotomy (02/16/2020), Endoscopic plantar fasciotomy (06/02/2019), LEFT ELBOW ULNAR NERVE DECOMPRESSION (02/11/2019), x3, Foot, Gastric bypass operation, History of tubal ligation, Lumbar puncture to lower intracranial pressure. Home Medications APAP/butalbital/caffe ine 300 mg-50 mg-40 mg oral capsule, 1 cap(s), Oral, q4hr, PRN calcium (as calcium citrate) 200 mg oral tablet, Oral, BID cyclobenzaprine 5 mg Tab, 5 mg= 1 tab(s), Oral, TID Cymbalta, 60 mg, Oral, BID lisinopril 5 mg Tab, 5 mg= 1 tab(s), Oral, Daily Multi-Day Plus Minerals, Oral, Daily Pantoprazole [address] Tab Phenergan Rexulti 3 mg oral tablet, 3 mg= 1 tab(s), Oral, Daily Topamax 100 mg Tab, 100 mg= 1 tab(s), Oral, Daily trazodone Trileptal Tylenol, 325 mg, Oral, q4hr, PRN Zofran 8 mg Tab, 8 mg= 1 tab(s), Oral, BID, 1 refills Allergies Abilify (suicidal) Coconut Oil (Swelling, Itching) Social History Alcohol - Medium Risk, 07/01/2021 Current, Liquor, 3-5 times per week, 01/29/2022 Substance Abuse - Denies Substance Abuse, 02/11/2019 Tobacco - High Risk, 02/07/2020 10 or more cigarettes (1/2 pack or more)/day in last 30 days Tobacco Use:. Never Smokeless Tobacco Use:. Cigarettes, Yes, 08/22/2022 Family History Cardiac arrest: Mother and Grandparent. Diabetes mellitus type 1: Mother and Grandparent. Hypertension: Mother and Grandparent. Primary malignant neoplasm of bladder: Father. Primary malignant neoplasm of female genital organ: Mother. Screenings and Assessments 08/14/22 12:46:00 Result Name Value Comment Phone Call Monitoring Consent Agreed to continue call Phone Verification Patient Information Full name, street address and date of verified CM Program Enrollment Provides verbal consent for enrollment Goals and Interventions Care Plan Progress Note TCM #3 - Patient states she is feeling better. Remains with a little pain at the base of her neck but reports her migraines are pretty much gone. Denies N/V. Her vision has cleared up. Her blood pressures are still a little high but not has high as they were, ranging around 130/97. She has a follow up with Neurology on 09/17/2022. Patient states she is finally able to start cleaning her house again and feels back to normal. Patient is eating and drinking without difficulty. She has intermittent abdominal pain but plans on discussing this with her gastric bypass physician. Constipation improved. No changes in sleeping pattern noted. Denies questions or concerns. Communication Events Date: September 05, 2022 Method: Phone call Type: Outbound Duration (min): 3 Outcome: Case discussion Contact Type: advertising operations coordinator Contact Name: Daisy Rodgers RN Notes: TCM #3 - see case summary note. Created By: Daisy Rodgers RN Date: August 29, 2022 Method: Phone call Type: Outbound Duration (min): 2 Outcome: Case discussion Contact Type: advertising operations coordinator Contact Name: Daisy Rodgers RN Notes: TCM #2 see case summary note. Created By: Daisy Rodgers RN Date: August 14, 2022 Method: Phone call Type: Outbound Duration (min): 10 Outcome: Case discussion Contact Type: advertising operations coordinator Contact Name: Daisy Rodgers RN Notes: TCM #1 - Spoke with patient for initial TCM program call; Patient Summary sent to PCP. Created By: Daisy Rodgers RN [facility] 08-29-20 22 [facility] Case Information Case Priority: None Programs: -- Referral Source: Commissary Manager Referral Reason: Care coordination Case Type: Transition Care Management Risk Score: -- Case Status: Active (August 14, 2022) Date Assigned: August 14, 2022 Assigned By: Daisy Rodgers RN Date Enrolled: August 14, 2022 Assigned Primary Personnel: Daisy Rogders RN Assigned Secondary Personnel: Cecy Cannon RN Case Physician: -- Problems Ongoing Alcohol abuse Axillary lymphadenopathy Bipolar disorder BMI 29.0-29.9,adult Borderline personality disorder Grief reaction Headache after spinal puncture History of bypass of stomach Left breast mass Leukocytosis Over weight Pancreatic mass Recovering alcoholic in remission Smoker Somatic dysfunction of cervical region Somatic dysfunction of head region Somatic dysfunction of thoracic region Trapezius muscle spasm Vitamin D deficiency Historical Anxiety Borderline personality disorder Depression Disorder of oral soft tissue Intentional benzodiazepine overdose Omental infarction Procedure/Surgical History Endoscopic plantar fasciotomy (02/16/2020), Endoscopic plantar fasciotomy (06/02/2019), LEFT ELBOW ULNAR NERVE DECOMPRESSION (02/11/2019), x3, Foot, Gastric bypass operation, History of tubal ligation, Lumbar puncture to lower intracranial pressure. Home Medications APAP/butalbital/caffe ine 300 mg-50 mg-40 mg oral capsule, 1 cap(s), Oral, q4hr, PRN calcium (as calcium citrate) 200 mg oral tablet, Oral, BID cyclobenzaprine 5 mg Tab, 5 mg= 1 tab(s), Oral, TID Cymbalta, 60 mg, Oral, BID lisinopril 5 mg Tab, 5 mg= 1 tab(s), Oral, Daily Multi-Day Plus Minerals, Oral, Daily Pantoprazole [address] Tab Phenergan Rexulti 3 mg oral tablet, 3 mg= 1 tab(s), Oral, Daily Topamax 100 mg Tab, 100 mg= 1 tab(s), Oral, Daily trazodone Trileptal Tylenol, 325 mg, Oral, q4hr, PRN Zofran 8 mg Tab, 8 mg= 1 tab(s), Oral, BID, 1 refills Allergies Abilify (suicidal) Coconut Oil (Swelling, Itching) Social History Alcohol - Medium Risk, 07/01/2021 Current, Liquor, 3-5 times per week, 01/29/2022 Substance Abuse - Denies Substance Abuse, 02/11/2019 Tobacco - High Risk, 02/07/2020 10 or more cigarettes (1/2 pack or more)/day in last 30 days Tobacco Use:. Never Smokeless Tobacco Use:. Cigarettes, Yes, 08/22/2022 Family History Cardiac arrest: Mother and Grandparent. Diabetes mellitus type 1: Mother and Grandparent. Hypertension: Mother and Grandparent. Primary malignant neoplasm of bladder: Father. Primary malignant neoplasm of female genital organ: Mother. Screenings and Assessments 08/14/22 12:46:00 Result Name Value Comment Phone Call Monitoring Consent Agreed to continue call Phone Verification Patient Information Full name, street address and date of verified CM Program Enrollment Provides verbal consent for enrollment Goals and Interventions Care Plan Progress Note TCM #2 - Patient states she still feels some pressure in her head but her migraines are gone. Her next follow up with Neurology is on 09/17/2022. Patient has not checked her blood pressures recently. Encouraged to monitor daily and keep log. Patient is eating and drinking without difficulty. Denies abdominal pain or bowel issues. No changes in sleeping pattern noted. Denies questions/concerns. Communication Events Date: August 29, 2022 Method: Phone call Type: Outbound Duration (min): 2 Outcome: Case discussion Contact Type: advertising operations coordinator Contact Name: Daisy Rodgers RN Notes: TCM #2 see case summary note. Created By: Daisy Rodgers RN Date: August 14, 2022 Method: Phone call Type: Outbound Duration (min): 10 Outcome: Case discussion Contact Type: advertising operations coordinator Contact Name: Daisy Rodgers RN Notes: TCM #1 - Spoke with patient for initial TCM program call; Patient Summary sent to PCP. Created By: Daisy Rodgers RN [facility] Family Medicine Office/Clini c Noteon 08-25-2022 Family Medicine Office/Clinic Note Chief Complaint TCM hospital stay still having headaches and blood pressure issues.left ear has and side of face has pain and neck History of Present Illness Austin is here as well pounding headache since LP I did what neurology said, go to the ED, but they didn't do anything for me walking around my house, my BP seth rockets neurology resumed topamax 50mg BID on trileptal - rx'd by [facility]; outpatient rehab in [facility] approx month - i haven't felt like drinking I feel pressure in my ears and eyes - there's a whishing sound hx of gastric bypass 08/20/22 - headache thought to be secondary to LP from prior day patient left without being seen 08/19/22 - performed lumbar puncture - successful 08/18/22 - left foot pain noted to have LP scheduled for the following day 08/15/21 - message re: MALDONADO, nausea, vision changes and elevated BP; recommended to be evaluated in the ED 08/14/22 - CYNDI note. Seen for: visual disturbance --> concerned for intracranial hypertension; plan for LP and rec to see ophtho urgently papilledema secondary to above headache - recommended to stop topamax until after the LP 08/08/22 - ED for asymptomatic HTN and headache referred to neurology due to findings of empty sella Review of Systems 13 point ROS negative except for HPI Physical Exam Vitals & Measurements T: 36.7 ?C(Oral) HR: 95(Peripheral) BP: 110/76 SpO2: 98% HT: 67 in HT: 170 cm WT: 85 kg WT: 187 lb BMI: 29.41 Constitutional: Vital signs reviewed; Shazia is well nourished, mild distress Head: Atraumatic, normocephalic Eye: EOMI, normal conjunctiva - no nystagmus ENT: Moist oral mucosa, external inspection of ears and nose is unremarkable Neck: Trachea is midline, no tenderness Lungs: Clear to auscultation, non-labored respiration - expansion is symmetric Heart: Normal rate and rhythm, normal peripheral perfusion Lymph: Deferred Abd: Deferred : Deferred MSK: Normal gait and station Skin: Warm, dry Neurologic: Awake, alert and oriented, speech is normal, no focal deficits, CN II-XII grossly intact Psychiatric: Cooperative, generally pleasant, mood somewhat labile but generally appropriate, insight and judgement difficult to assess Assessment/Plan 1. Headache after spinal puncture (G97.1: Other reaction to spinal and lumbar puncture) Acute new to me neurology is aware has been to the ED but left previously prescribed fioricet for a few days, will do that again today symptoms improved with OMM today F/u 1 month 2. Trapezius muscle spasm (M62.838: Other muscle spasm) Acute on chronic Likely contributing to the above Etiology is likely a combination of sub-optimal mechanics, muscle imbalance, posture vs other Discussed with the patient today - the MALDONADO after lumbar puncture should resolve in a few days She may have been a candidate for a blood patch but I'm unsure if neuro would do that in this instance Improved with OMM F/u 1 month 3. Recovering alcoholic in remission (F10.21: Alcohol dependence, in remission) Chronic 1 month sober Encouraged continued sobriety Extensive grief response as well as MDD vs IDALIA likely play a role Also, the patient does describe having borderline personality disorder Encouraged consistency with treatment Encouraged consistency with psych F/u 1 month 4. Somatic dysfunction of head region (M99.00: Segmental and somatic dysfunction of head region) Manipulation described as above The patient tolerated manipulation well and the procedure went as planned without incident Range of motion and function have improved with objective improvement of signs and subjective improvement of symptoms Patient to follow-up in 3-4 weeks for additional manipulation if needed (or sooner PRN) Discussed the importance of taking meds 5. Somatic dysfunction of cervical region (M99.01: Segmental and somatic dysfunction of cervical region) see OMM portion for more details 6. Somatic dysfunction of thoracic region (M99.02: Segmental and somatic dysfunction of thoracic region) see OMM portion for more details Adult BMI 29.0-29.9 kg/sq m (Z68.29: Body mass index [BMI] 29.0-29.9, adult) Ordered: Body Mass Index (BMI) documented 3008F Current tobacco smoker 1034F Influenza immunization status assessed 1030F Most recent diastolic blood pressure 80-89 mm Hg 3079F Systolic BP <130 mm Hg (Most Recent) 3074F Total time spent TODAY preparing the chart, face to face with the patient and family and time spent documenting, reviewing, and ordering tests was MORE than 45 mins *significant time spent reviewing her chart in preparation for today Follow-up With When Contact Information Rahul Salinas DO, FAM, PED Within 1 month, only if needed [address] [facility], [facility] [place] [place] [address] Additional Instructions: 40 mins Patient Education Tension Headache, Adult, [id number] Problem List/Past Medical History Ongoin (more content not included)... Normal [facility] Comment on above: Result Comment: Elec tronically Signed By: Rahul Salinas DO\.br\Date and Time Signed: 08/25/22 06:58 EST Ambulatory Visit Summaryon 1 10-23-2021 Ambulatory Visit Summary SHAZIA CHOU :1990 Visit Date:08/22/2022 Ambulatory Visit Instructions Your Diagnosis Headache after spinal puncture Trapezius muscle spasm Recovering alcoholic in remission Somatic dysfunction of head region Somatic dysfunction of cervical region Somatic dysfunction of thoracic region Adult BMI 29.0-29.9 kg/sq m Your Care Team Attending Physician - Rahul Salinas DO Primary Care Physician - Aimee Walker CNP This Is Your Medications List cyclobenzaprine (cyclobenzaprine 5 mg Tab) Contact prescribing physician if questions or concerns APAP/butalbital/caffe ine (APAP/butalbital/caff eine 300 mg-50 mg-40 mg oral capsule) acetaminophen (Tylenol) brexpiprazole (Rexulti 3 mg oral tablet) calcium citrate (calcium (as calcium citrate) 200 mg oral tablet) duloxetine (Cymbalta) lisinopril (lisinopril 5 mg Tab) multivitamin with minerals (Multi-Day Plus Minerals) ondansetron (Zofran 8 mg Tab) oxcarbazepine (Trileptal) pantoprazole (Pantoprazole [address] Tab) promethazine (Phenergan) topiramate (Topamax 100 mg Tab) trazodone [Image Removed: STOP]Stop taking these medications Non-Formulary Medication (Magic Mouthwash) naproxen (naproxen 500 mg Tab) nitrofurantoin (nitrofurantoin macrocrystals-monohyd rate 100 mg Cap) ondansetron (Zofran ODT 4 mg Tab-Dis) varenicline (varenicline 0.5 mg oral tablet) varenicline (varenicline 1 mg oral tablet) Procedures Performed Endoscopic plantar fasciotomy (02/16/2020), Endoscopic plantar fasciotomy (06/02/2019), LEFT ELBOW ULNAR NERVE DECOMPRESSION (02/11/2019), x3, Foot, Gastric bypass operation, History of tubal ligation, Lumbar puncture to lower intracranial pressure. Discharge Vitals Temperature (Oral) 36.7 ?C Heart Rate (Peripheral) 95 Blood Pressure 110/76 Height 170 cm Height 67 in Weight 85 kg Weight 187 lb BMI 29.41 What to do next You Need to Schedule the Following Appointments Follow Up with Rahul Salinas DO, IGGY, PED When: Within 1 month, only if needed Comments: 40 mins Where: [address] [place] [address] Medications What How Much When Why Instructions New cyclobenzaprine (cyclobenzaprine 5 mg Tab) 1 Tablets By Mouth 3 times a day Trapezius muscle spasm Duration: 14 Days Pickup at [facility]/pharmacy #[id number] Unchanged acetaminophen (Tylenol) 325 Milligram By Mouth Every 4 hours as needed for as needed for pain Contact prescribing physician if questions or concerns Unchanged APAP/ butalbital/ caffeine (APAP/ butalbital/ caffeine 300 mg-50 mg-40 mg oral capsule) 1 Capsules By Mouth Every 4 hours as needed for for headache Contact prescribing physician if questions or concerns Unchanged brexpiprazole (Rexulti 3 mg oral tablet) 1 Tablets By Mouth Every day Contact prescribing physician if questions or concerns Unchanged calcium citrate (calcium (as calcium citrate) 200 mg oral tablet) By Mouth 2 times a day Contact prescribing physician if questions or concerns Unchanged duloxetine (Cymbalta) 60 Milligram By Mouth 2 times a day per dr chaparro Contact prescribing physician if questions or concerns Unchanged lisinopril (lisinopril 5 mg Tab) 1 Tablets By Mouth Every day Elevated blood pressure reading Contact prescribing physician if questions or concerns Unchanged multivitamin with minerals (Multi-Day Plus Minerals) By Mouth Every day Contact prescribing physician if questions or concerns Unchanged ondansetron (Zofran 8 mg Tab) 1 Tablets By Mouth 2 times a day Nausea Contact prescribing physician if questions or concerns Unchanged oxcarbazepine (Trileptal) Contact prescribing physician if questions or concerns Unchanged pantoprazole (Pantoprazole [address] Tab) Contact prescribing physician if questions or concerns Unchanged promethazine (Phenergan) Contact prescribing physician if questions or concerns Unchanged topiramate (Topamax 100 mg Tab) 1 Tablets By Mouth Every day Contact prescribing physician if questions or concerns Unchanged trazodone Contact prescribing physician if questions or concerns Pharmacy Information [facility]/pharmacy #[id number]: [address] [place], [place] [id number] [phone] What How Much When Why Comments Stop Taking naproxen (naproxen 500 mg Tab) 1 Tablets By Mouth 2 times a day as needed for for pain Stop Taking nitrofurantoin (nitrofurantoin macrocrystals-monohyd rate 100 mg Cap) TAKE 1 CAPSULE BY MOUTH TWICE A DAY FOR 5 DAYS WITH FOOD Stop Taking Non-Formulary Medication (Magic Mouthwash) 5 Milliliter By Mouth 3 times a day Disorder of oral soft tissue Duration: 2 Weeks Swish and swallow. 30 mL Nystatin + 210 mL Diphenhydramine + #5 tabs 20 mg hydrocortisone + Doxycycline 1,000 mg (tabs/ cap). Stop Taking ondansetron (Zofran ODT 4 mg Tab-Dis) 1 Tablets By Mouth Every 8 hours as needed for Nausea/Vomiting Stop Taking varenicline (varenicline 0.5 mg oral tablet) See instructions Smoker Step 1: Take 1 tab (more content not included)... Normal [facility] Coding Summary.on 08-22-2022 Coding Summary. [id number] G h0bWw+PGhlYWQ+KU9XQTA mG97raPUnuJ8IL1uHMX9V ORWGHKZSGC7FTJ9peNU2Y UpcW5PpqqLf YasmrWXyCS13JAy6ZNP7c IbwGEyyzE9izEFgJ7p4Kr WpEV41sB47HOonSROeFlR 3LjZpbjsgbWFy T0eyXbWxbMIjUuq+PHRhY mxlIHdpZHRoPScxMDAlJy PeeHcvTB1pCi9zLKPwXRS vbGxhcHNlOiBj g4wjKHJzRNeeBG7ykMxxV 7AstBQ9MRMgy0b9Mz95wR I+PSUvTZZ7eRmjPZztw36 0GmChl6ghZII8 qRSsLVleVLR4N49pb7O8C OXlKTTlKOU5gQF4sV0wbT wamckfJ7ZapHGsHoD5NIA 8nDDwkP0ufYka tgorqO8qEkm+Y96LAH5TH OURHX4BUqo5U1LrTbafvE I+OQ73QZBoRU99jRKdsMN mu1kdaJt8PoTa YCBsFUJ0zKtkFTkmz8NwC JLdC58jjSYqx2A1MICyuE dxfYTuYmTptDK5uS1nDWi lzkwho1wsfnoi Ukvtc6doax83fT88O57nJ KtlTSOzRDJ9NNStPDTgdZ prps2ppD2zCm0+IQwcm0d qd2lqhPu8VzYk DXBqrqKsfEhlYSM1t6YnQ u05C6UdcKzwr1LuSoi5tw 13cELge1L6gEY7FHfdFEC clK8jAOskGrM5 QAHpPzQagW27qYRoNRtiA a8pfMfjlSraEU0aVFCcme hrHQWoxQ7sGNCxrUWvdHi fER7mMMQvuacp k233TpHaQMN1IUIjlZNrG 2YllV1aHuPdOLJdYCTsG0 CvjSCjBFjdR957UNgnFvG 5YMBtnkHwN0Ag DSWksIugSwY9v1T7Du8Xi 8LzgsznBYV1STtaNVUjFe G9RdZfOmR7Z0LyUuo3IBV loUysPR3rG1Aq WKNvbluudirfcHQ5AQHuX ALqfK00eYRgITgqUs6gc9 T3j467HLToTCHzeH49Ek1 udDogMTBwdCBU hR6ewzbys5nfcyuaXoFfH UYuEIu3ZGy2IVGjnRnqId ZsATH6YwM4PCD7sWVdyU0 arXxdicjvuH8s Oyc+I54hoF1zHND3BJV2k mioVICxkzBnYY10FV75Z1 RyPjwvdGFibGU+PGRpdiB vdJmuWP2tShVr p7qmd9FtWJveM3WrHXQaF FjiFyw4GKYsQWP1vZJ1tM 8dCYZcCUgdp2V8yBK0E7G yslCnby5hd2hy UQGfFVdpE29oqJFvn5V0J KOznAG9NJAexZfiXlMosA 93Oyc+WVJbtVwbt0NvRqk ji8bzk6yssYk0 ChIgIINtjuJweBnxZZL6o 5ClOw26O96eANshOOBwCB VeIUEcXCVzpCswhz0ceN1 wIi8+PGNvbCB3 hAO2aQ3nCYDkEiH6FUrbC 634EzOsnIYrAcuat0wpg5 souHm8HdIlLBZwtjIpvVr eDMA8c6XcNs43 Z61kENrpYXQjSYPxBKIaS DCvqHsgrq4kqP6pAi2+PC 5np1zcai04eC71pNV+PHR wJIL5nAmeVIiq CIZslF8mAKjbMaR4IIKdH uSfcD39dWZbRExlLo5gsX rfeNolUK5vVZMeupjbo63 5VjCaz9hjYMOj iNGdYSjcWIH5X96uk5N4J ETzDNAyGRG8yRQ7kG5uvH lnbjogbGVmdDsgdmVydGl aGVykFQkcH501 IHRvcDsnPlBhdGllbnQgT cGxEYi5U7XcVlr9CWOmnA xbSA8peHLxDYtnDa6noNq crKqoHB1eYMFu hfxog428KpPuq3pgWOCpt RFuNTbpEIP0M30ot0H2UH OnEZKrTJL7zUF5kJ1rbNi nbjogbGVmdDsg atMwaJzdVNxjABapY724R HRvcDsnPkJpcnRoIERhdG I7SS84BT09vVKfl8F1bPV 6O3LqVBCzumvv mbykaIO5XFFbRQWvvA18T j0qtMdqMx9yXFYxPGE5QU PlkVQvM4AmvJ4xJkWqFMD eADWuE1UwaNHj WJccK348AAyhJsW1WCOxp sJxC5MrAEEgtYoxJyS9f0 O4Yx0WS0B5HN84AP45xJP fi4P1fCE8G6Au HWByywydgflwoCM1FQLrI IKpjS33Nu2ubUcoQy1dCZ IhNBU1PHOaqKOaL4AotF1 yOiAjMDAwMDAw Q5XklJIiRExfZ038STgxI jO0IEGqosIcC4FtOJJdpP stFyS9l3E0Cm0OBNq8ZS4 0KM83mAFbi3W7 cVE0Z9XaNZXbfwlofwsch IT7BNKmLYSfsS12Pv9voM npKz3zCWBvCPY9NMZpaJX iK8YlzU9sEiAo JWIgHNUgN6NueRXfFDsgZ 831SGljKzT9KVUmbzUcL1 FoLNTluXqzBvY4d7A0Qd0 IIPQiDX62KLW6 dUA0JV25AK16R7SpYdwqf GFibGU+PHRhYmxlIHdpZH RoPScxMDAlJyBzdHlsZT0 gEu7uZZOwDVNn gApvjRXqVsKtt2xzZEKhV WljBN2hkSxrI4TaqAQ3IJ Fdb6l1Yq15C81hV5FvuHE +VNUgdKI1cPM9 gA6tFsIcFsV8QGdgC165W mDtyOVgIgcwz9zeq9jkmO p8HfV7HHLhbuYutHgcZAM 3o3RfMx09H20w IHdpZHRoPSIxNSUiIHZhb Bvqyk3hsY3nSa9+PGNvbC F8jFP4cB0tMwFyTjG5UZo vT632ZvBycPSo Maask4pqq0didTj3FlFfU JXejoOntXvkQYD9a9XyHm 68T6SruYybm2KyKtj4bd0 2zQJgw0S8dFL3 K6YhNBGwislwuPUhdWveK B4rPOLhjvsiQERdfN7tXP ZdB2q5MzVnBfC3MWbpV1T denV6NIMomJWw DYyyXTP9K79cq6B8RSImC DPnDFY8tBC7oB1kcTofbm ogbGVmdDsgdmVydGljYWw hVHdmI323CNOl yHpaCLEcbC7lWRTihJHqe FikAX0hSTFxjujdVcTMWe UAXU3tTLyUF6MCE6ArNDa vdGQ+PHRkIHN0 hOrzOUkkDDTimR6nHHVgO 1t9NyIyCgL7ZRlbW3HdQH ObcuicFn15vT4wDmAdCzA 1PHvgS1RjlyT4 WNVxoDObHSpkBXF7O11fj 0L7JBBiETCsFLA3fDH4kS 1hbGlnbjogbGVmdDsgdmV ydGljYWwtYWxp F938XZWlkFtwLbJ1PxG3T rN0YHr2Q2CsRfc0XNQotA arHN1okINsROnfOn5kwSu ndKloYF2lUGLg prfbVDUrvT8oHDIjwMRpl PhqJZ3xQSCcpoxsy588Wh TyKTU2BVRsqBGtZ3YxaR9 yOiAjMDAwMDAw C4HweNJiQDkxZ345FKmtK kW8AJKupkTdA8RtMPHdcB wgIzD5n8H7Pt3aEmGNKDS yczwvdGQ+PHRk ZHE2mBfeIXvwTXNvmT5kE KTcZ3a3BmUxNeW2MHddB1 LiYHPsjvpvKe51wJ2tBhK iIkZ3ENpzD3Pf qjK5FDHioFSpATcoMWR0I 56nb6O7LBXjIKUfMNU0mM G7aV3cfSfefzyidIEfqXv gdmVydGljYWwt GUoeN257XGMzmUsoZnBwz WFsZTwvdGQ+AXMvNJR5gD xtLRwwHZXjoO4rMCWaY3i 8PfRmQzY4JRrk H9WrYGEnpppnGy35pW7sT lJaJxL4UExyC7OgokY0UY DvoZGrNIerAUA8J87ox5G 6ATWtCCRiWEW7 wHZ1uM6bhCtrgahipRPsj DsgdmVydGljYWwtYWxpZ2 07SJXkjBbwYeKyQQDwEX6 jeTwvdGQ+PC90 sg63T7RjFjfzRkf1WESsF JY1cIQ0aK0qLLQoQSexn5 X7yUG2D6GadrXjgq4ll0h dVLBcYFhcR43v kFYqy4H1ZJGsvUG9CJGel IafChEbaZ36Rdz+PGNvbG ryt4TyTsnoj4sfa2xozVg 9IjMwJSIgdmFs xLyvLZH3z8IgFz25T31rH HdpZHRoPSIzMCUiIHZhbG vqik5qsC7zCh0+PGNvbCB 7uHQ8uV1wDwZd OaF2HSngJ889ZeGlvCGoE dtcg1lue3dndRf1ZfIuGB LxcqMnbQabMAH1w5EoVp3 2Y7DnaSkkp9Ac Giq2wi10rDVds8Q7xSM7L 3BhZGRpbmctbGVmdDogMC 8bEGBelugbRLHoxR2pVPB kF3t6InSwTwQ5 KCadD4BhsbH5WFPptQLnD QAyyWIWfM7anakos3jfvt oiCdDnHWMrBWx4DFb4YAE saWduOiBsZWZ0 JoY0ZUL8dLNfaJ6baDhya afaoQ7nLen+JYe9x5czeI LsJQ8otQD0XU91LT90qJQ bo6M4nLS5O3Op QUIqrdhycmqpzIT5BWOeD COnhY98Rp2waDcsYi6wBX SrNKX1DZLlvJYkQ3AwcD7 yOiAjMDAwMDAw D6LblQDxMSrfI689RDprG aX3BFDgrbUnA0XaUPNzgN iaHbU6k8K6Tf6SDD74DU6 9WN24rVJcv5D1 aSO4F8IyREIgussyrnwnd SF3RTMwOPErmU91Hw7wkR ekWs6gURVaXRJ2JSVnqIE zO5VmfY3uQoOj ZXTrTERiR6TpkTClDDrcX 622CPvsTnM1GMRgddGbC7 InXGCfdHfeTsO0r1E6Mq9 VTu95CU32UT51 xQFkt8M4jFS2B4RsFYMzj zpqmzcmxRJ9ASDaZBNwcF 88Py4jfYugNv2kTYOkKWE 7MKEcvXYdD1Qo cP3uTgIoRSKcKVSyQ1Xjk WZdPKuuI515VVclFvD4LO EphyYtD7YqFBMesVzdGmR 7w4S8Nd2EFKio qym9G8ExCvyejQB+PC90Y EKgAX49yITeeWIrc8xknL a1GmRpGDJaJFB7qIiiEKd yg6HeORLoM21t bGFw (more content not included)... Normal [facility] Patient Educationon 08-22-20 Patient Education Neurology Tension Headache, Adult A tension headache is pain, pressure, or aching in your head. Tension headaches can last from 30 minutes to several days. Follow these instructions at home: Managing pain ? Take mvew-yme-usaklxk and prescription medicines only as told by your doctor. ? When you have a headache, lie down in a dark, quiet room. ? If told, put ice on your head and neck: ? Put ice in a plastic bag. ? Place a towel between your skin and the bag. ? Leave the ice on for 20 minutes, 2?3 times a day. ? If told, put heat on the back of your neck. Do this as often as your doctor tells you to. Use the kind of heat that your doctor recommends, such as a moist heat pack or a heating pad. ? Place a towel between your skin and the heat. ? Leave the heat on for 20?30 minutes. ? Remove the heat if your skin turns bright red. Eating and drinking ? Eat meals on a regular schedule. ? Watch how much alcohol you drink: ? If you are a woman and are not , do not drink more than 1 drink a day. ? If you are a man, do not drink more than 2 drinks a day. ? Drink enough fluid to keep your pee (urine) pale yellow. ? Do not use a lot of caffeine, or stop using caffeine. Lifestyle ? Get enough sleep. Get 7?9 hours of sleep each night. Or get the amount of sleep that your doctor tells you to. ? At bedtime, remove all electronic devices from your room. Examples of electronic devices are computers, phones, and tablets. ? Find ways to lessen your stress. Some things that can lessen stress are: ? Exercise. ? Deep breathing. ? Yoga. ? Music. ? Positive thoughts. ? Sit up straight. Do not tighten (tense) your muscles. ? Do not use any products that have nicotine or tobacco in them, such as cigarettes and e-cigarettes. If you need help quitting, ask your doctor. General instructions ? Keep all follow-up visits as told by your doctor. This is important. ? Avoid things that can bring on headaches. Keep a journal to find out if certain things bring on headaches. For example, write down: ? What you eat and drink. ? How much sleep you get. ? Any change to your diet or medicines. Contact a doctor if: ? Your headache does not get better. ? Your headache comes back. ? You have a headache and sounds, light, or smells bother you. ? You feel sick to your stomach (nauseous) or you throw up (vomit). ? Your stomach hurts. Get help right away if: ? You suddenly get a very bad headache along with any of these: ? A stiff neck. ? Feeling sick to your stomach. ? Throwing up. ? Feeling weak. ? Trouble seeing. ? Feeling short of breath. ? A rash. ? Feeling unusually sleepy. ? Trouble speaking. ? Pain in your eye or ear. ? Trouble walking or balancing. ? Feeling like you will pass out (faint). ? Passing out. Summary ? A tension headache is pain, pressure, or aching in your head. ? Tension headaches can last from 30 minutes to several days. ? Lifestyle changes and medicines may help relieve pain. This information is not intended to replace advice given to you by your health care provider. Make sure you discuss any questions you have with your health care provider. Document Released: 11/25/2010 Document Revised: 08/13/2018 Document Reviewed: 12/11/2017 [employer] Patient Education ? 2019 [employer] [facility] Coding Summary.on 08-21-2022 Coding Summary. CD:[id number] G h0bWw+PGhlYWQ+OT3BTZI yW72fjEHbfI2SJ2nSMR6K FTEXHPEFRD0BEE4vbBR5U TonF6ZpomWa GhoydBRhQB01WKr4BOT7p AibOHqpoB4cwQJzO0n7Ng WfAT61mL72UZxuKHErIfO 3LjZpbjsgbWFy K1wyXcZgdBTgSij+PHRhY mxlIHdpZHRoPScxMDAlJy RrwRceWQ4qQn6rHSHpNHB vbGxhcHNlOiBj i4otDDSrPVcoDM0pyNbkU 1LgtAX0BIMop4m1Kp25qD I+ONRpQBY1iHalLMtla01 6IvCqj6soVWM8 uAEoEMcsDSW6V86bo1S4X BMjOARtVOP1iLV6nZ1icL ktjntbI1OgiVFyPaS3GFP 1zTAkmQ3ndVjw fypsaV8qRcm+M11ZDG7ZQ ZTJQL8SIyn4T2ObZaktzZ I+RI82TUFzIA34mAMnyZJ mp5hegKc0YtZe OSAaKQB4aOkdTNuqg7LuS QRdE95vkBFry6V0XORbhL wdbIAuFzGutOS9uW7yMFi ntgivb5djqfqc Shxhz5unzr50tU97P01lD LzhQFEzGXF4LYWfIJItxQ sezk1vkL7fVy4+JKjeh4t vd4mtzMx3MzEn GTVgdpMfuThpPCL1f3XqB f02T6QodMbwo6MjStm7dd 47sSUbo2X2wJS1QLvpDGA kmC0rAQjpWvS2 ECHsIjSjeW68qXMrIWkkT f1tlDklmXcsUN6vZTZpca ujBPDvjY0sNAAinLJaxXt hUW5mGKBzozja p498UuVgOFY9SYHxgMJuC 8MapG4aFjIuGMSeYEGeE0 YfwWVsNRinJ328AGhcJqW 5URAignKoC0Os XIFuuBlnNvC1z2C8Sx1Tt 4HutbokQRR9MDekHDEeDy N3JgUnFxA3L8ClYzd5VLX mwGocUC4zG7So YDLubllpbylmhUX0DUYwR MPpwD81pFRaLSqbVe8vq8 R1y559HRCeVZOpiA11El3 udDogMTBwdCBU nX8hpzlid3ekdueoVzOwV GKjPDs2IDl3MTWcpHakVc InBJQ5CbE2FWN0bEIddH6 ldJqkokvvzO4r Oyc+P16ygW0xGNF8PJC0d znjYORnszCuJS87TG05H0 RyPjwvdGFibGU+PGRpdiB iyUgrFM3lCyZl q8dlb2FsZBxqA0VqYKKtA NnzCzt6UYDiNAV8pZH6bL 9cWRVxMVivl8K6cWN1G3Y xmbYuar6qj0cq QQWlXVroS51zjMGfh3C3W TOpkYP9GAPknAtzHxTewC 93Oyc+PKGuiTche3WtGaq ql3nfl9teqAy3 FdQgEBSeoaBrgFwgZKZ0y 4OzBk55G46sWZdxITLnJW PqHNJlSBHpjUogkf2ljJ1 wIi8+PGNvbCB3 uPV9aW7jEHBvCqH8JIwxG 835ZkCeqOTyVcnav5vej3 igvIy8QyYeLBEbatJxaXb tCTM7r1ScQt56 D65lBJqwDMGfILOpPZYoW XJhxVlsgf7zvP9mXa9+PC 4qo2huie60rL52tIW+PHR oJPO0nYjkXYij PCHusP2mSWyhCuX5KACvQ mTmmO20oWMlDLmlZz3acN mcsGkxZM9yPLYobiqah35 8BwUrh3zgSHDb oILaKKbtALU1E68pt9K5A KVhYBLcQVY3tKJ1pD7vmP lnbjogbGVmdDsgdmVydGl cLOloSKskV688 IHRvcDsnPlBhdGllbnQgT iHwCRn3R5XwFim3QSEilP obJD9bnYBeYJirKr8uoEs jdHhsKI5nBYFg lllvg225ZxPpg5fuCYQcb NYqXWykJBE2O85xy5Z5RI XvSTOaJPV0rCO4uQ0riQd nbjogbGVmdDsg cqSdeIfmPXqsIXvyQ599O HRvcDsnPkJpcnRoIERhdG G2WC21ZG78iGOva7Q5eSF 0M2NfEXVppzak bvwefQG7PMViGIVmoR03P m8vkTpxRu9jQBTjNAT1GH MzcDGrT5ZnkY7xSiVgVNA qACTvW5DplRNk NKalV680FMxpHgO8ZSXzr oYqO5TcRBKrmHdaOiA7x6 C4Qa7GQ5T3TE47KF63zWI cg2D9jPU6X4Hj ILYfjttmhqmtxVM0SHMiZ WSqcG86Xv1zbRhrAp2dBA FcSGM7HUEhsMCwE7QymC1 yOiAjMDAwMDAw C2HwqWOnWBjoU858OEorH wQ7VAXulpHrL9SwPVCyaW jhTfB1w8V5Qg1DNAr2XC5 2DV75pBZrl3Y6 eRU0L0ImUEBqtexzgmpwl EM2FRLqHTSdcB57Ei9rcQ bbVs1jDACgBUA1RJFhxXX bJ4JbgO1vTxAn LBQeJNBaS0KkoIHeOEwfK 951NYhiKnF3ASQknwQjI0 HtMVSwkWonKyP8b9L5Vw0 FMSVpQH31KPK9 sRK6GE99YV92Z2DdCnedy GFibGU+PHRhYmxlIHdpZH RoPScxMDAlJyBzdHlsZT0 fEl4dBGXiXFNc bPbvhAXqHvBuc4hqIGQsF WjhVC9vwSrrP2FrzLS9JN Xnn2x8Kx23L06oW1VjpXR +YHEzfOL6tPV9 hO0wQuSlPyB3JAziS434D gEbpNXeWtveb8vzb9hwbL n3CmA7WUGcvlMikGgdJZA 1j3RmUt07L95y IHdpZHRoPSIxNSUiIHZhb Csmdh9prT3iQy3+PGNvbC N9kPD1pR3fGhKlBdV0BLo zG860TvQaoRSw Yxekp1ewx0rhrWz3VeSuZ TOlwbFflKjhNMY5d1LcTl 46J1KaaQfct8YrXez2ci6 5fAVmi1B2tGC9 D8FbLSUcbbpxyNVbpDazW W2uRCXmlkjuGFCakA9aSR FrM7i7MeYxYrG2ACaeJ0O pcqN1PBHdaDWa WCieKSH8O75ha5C7XFTaE BFhIRO2xXI9fX7fbDffhu ogbGVmdDsgdmVydGljYWw oYPmfD856DXSx rQmiDMSxuR1iABFgkPFsu XlfCR8iCLBhvlgjWbGZTg WSGM7bDExQW2BZF6JmXMy vdGQ+PHRkIHN0 eSbnEPybKPShcA5pWRZfO 5a6XqKbVfZ2XNaiV7UqUD AudmcrPn52rQ4pOmPcGkC 1QIbzK0JxhvS0 DJDynVIwVSkzRXY6C61ck 8M8DBXjAXRlKDU5sGP2aO 1hbGlnbjogbGVmdDsgdmV ydGljYWwtYWxp W497WCCtvHkyNjP7XjG1S bD1FSa7U4IjTxb5CNVjnY rmWO5fmVBhJTtiKw7viFm fiOdxOA5gTFBb spayUXOmgL6pWDSxmLIct WvfRS6wXWSabraed620Gj SaVTK8WGUqzJKwW9UpfZ2 yOiAjMDAwMDAw V2NhrREdAOidI026QUykL tA2XCRzzrSdU2DyGQWdjY mrEkT6h8X2Hj7hIpHVXPZ yczwvdGQ+PHRk PQV6eRuwHHhrKCKpbD4qR MZqT2i7RrNyAkK8DNbzW4 GaZLHwsqavHe83lK1sMqW pBcV4ZHemP2Vh oxC9WDWkaHChNCpeXOE7V 07de8M7ASLqLXBmVVH1fJ K8xY8dhUzexnszsZFpcDs gdmVydGljYWwt ZOofI854DOHdjHnfGdTyh WFsZTwvdGQ+MCMbZNU7jG jhXWllZEYhbW6gQWTqP4p 3OuWzNcF8WXwi T3HwLYJkczksKs46mA2bT iMoTaH3ONkaR9KfpjU0GZ BlzQXtVBfiNGP5X24pa8E 2GZSgVRLaNDV5 sNC3gF8wmGwtdoxgeELnj DsgdmVydGljYWwtYWxpZ2 99DOBwfZmtCjSsTJTjJZ3 jeTwvdGQ+PC90 kv58Z4YrCaggAeg4UPVrJ OV1xUI7kS1mSPQiVQwpd6 D7jOG4V2MdgqGshy0dw4h aEROpAOxmN48e wMOil4A2VHSrnCM5YPKtb TosRjXrkW92Eqf+PGNvbG ymq9GvGfiol7kky0mpjUb 9IjMwJSIgdmFs pKpwHSF8n9NbDl01U30dE HdpZHRoPSIzMCUiIHZhbG hlhv0wcD2pUo3+PGNvbCB 1vBO4uH9sBrCa GdA3UXunK687IaQneAOaH whpe4qxt6pecPk2KlPeGG QrdhRxsDxvBUU3m5NqNs7 1L8XavRhkb2Zc Vtl2wr84dSIuf6P2mDF8Y 3BhZGRpbmctbGVmdDogMC 0eHEEexblrBSKdcM1gDEL eY7z0BrIkOhL9 BUgoH5LhnaP8WWRiuMFaN AFsnQRIeQ1ebzvew1ynwh crHgIwRKJdJNo3COa1QGE saWduOiBsZWZ0 JtW4VTR3cLCvtL2caGctc ckieE9mYme+FEh0i7rpkO YyZF4mkTZ4AO34WX28qNP vj9J4uRW7J7Ml EPYmhcprtskhjNF9IQViE SKwqW26Uu2waRclVc1hKL BkTEB6FIIreLDbE8SmdD1 yOiAjMDAwMDAw V8LgmPAxUAttY404RGnzS oX2SZFutmVxS6OqGBQcoT wyYxK5l2P9Ks8AYZ07VH6 4UQ55gHMpz5Z9 yRR2O0DePPZoogwlvalcu GX5RNGaEJIkhL40Tj7okF slFm5sWYEjGZM0UQSsbTR vX7OeiK5bGaPa YBHiMAYaJ2LtgAYrVNhaU 551WOcjGgF7TUDsjjRbN6 XrKBUbpTeuZyM1s2S5Qr4 YZa12KY23RO45 cNEdv4P5hMJ5Q8XoJGGjn hvyqrijvHD4NKNgSHKscS 18Ae8khWavVd7kHYCxASL 7TKTzeTBtZ3Lk eE5oVgSyWWZjHPQcV5Wyq UIqLLpdA636WKpvSgA6RF RjwnJhM1LiULEfyJciFyO 6j6C1Zl0STXcj scm3Z8RzYohasZB+PC90Y DRqPQ94eKNvnVZqf9dehQ l2ByMoSACdFSO4xIsdYSu bt3IsEELuK53z bGFw (more content not included)... Normal [facility] Consent for Treatmenton Consent for Treatment [id number] Normal [facility] ED Clinical Summaryon 2021 ED Clinical Summary [place] [id number] ED Clinical Summary Person Information Name: SHAZIA CHOU [facility] Age: 31 Years : 1990 Sex: Female Language: Djiboutian PCP: Aimee Walker CNP Marital Status: Phone: [phone] MRN: [id number] Visit Id: Visit Reason: Neck pain; Headache; HEADACHE, BLURRED VISION Speciality: Acuity: 3 Enc Type: Emergency Med Service: Emergency Arrival: 08/20/2022 16:39:01 Discharge: 08/20/2022 18:01:32 LOS: 000 01:22 Checkin: 08/20/2022 16:39:01 Checkout: 08/20/2022 18:01:32 Dispo Type: Eloped EVENTS: Event Name Event Status Request Date/Time Start Date/Time Complete Date/Time Arrive Complete 08/20/2022 16:39:01 08/20/2022 16:39:01 08/20/2022 16:39:01 Document Home Meds Request 08/20/2022 16:39:01 Triage Complete 08/20/2022 16:39:01 08/20/2022 16:55:22 08/20/2022 16:55:22 Bed Assign Complete 08/20/2022 17:00:11 08/20/2022 17:00:11 08/20/2022 17:00:11 Dr Exam Complete 08/20/2022 17:00:11 08/20/2022 17:06:26 08/20/2022 17:06:26 RN Exam Complete 08/20/2022 17:00:11 08/20/2022 17:30:23 08/20/2022 17:30:23 Registration Complete 08/20/2022 17:06:26 08/20/2022 17:17:55 08/20/2022 17:17:55 Dr Exam Complete 08/20/2022 17:10:16 08/20/2022 17:10:16 08/20/2022 17:10:16 Reg Complete Request 08/20/2022 17:17:55 Reg Bed Request Complete 08/20/2022 17:17:55 08/20/2022 17:17:55 08/20/2022 17:17:55 Discharge Complete 08/20/2022 18:02:01 08/20/2022 18:02:01 08/20/2022 18:02:01 Transfer Complete 08/20/2022 18:02:02 08/20/2022 18:02:02 08/20/2022 18:02:02 ADDRESS: [address] [place] [phone] PHYS DOC NOTES: MEDICAL INFORMATION: Prescriptions Given: Medications to Continue with No Changes Other Medications acetaminophen (Tylenol) 325 Milligram By Mouth every 4 hours as needed as needed for pain. APAP/butalbital/caffe ine (APAP/butalbital/caff eine 300 mg-50 mg-40 mg oral capsule) 1 Capsules By Mouth every 4 hours as needed for headache. Refills: 0. brexpiprazole (Rexulti 3 mg oral tablet) 1 Tablets By Mouth every day. calcium citrate (calcium (as calcium citrate) 200 mg oral tablet) By Mouth 2 times a day. duloxetine (Cymbalta) 60 Milligram By Mouth 2 times a day. per dr chaparro. lisinopril (lisinopril 5 mg Tab) 1 Tablets By Mouth every day. Refills: 0. multivitamin with minerals (Multi-Day Plus Minerals) By Mouth every day. naproxen (naproxen 500 mg Tab) 1 Tablets By Mouth 2 times a day as needed for pain. Refills: 0. nitrofurantoin (nitrofurantoin macrocrystals-monohyd rate 100 mg Cap) TAKE 1 CAPSULE BY MOUTH TWICE A DAY FOR 5 DAYS WITH FOOD. Non-Formulary Medication (Magic Mouthwash) 5 Milliliter By Mouth 3 times a day for 2 Weeks. Swish and swallow. 30 mL Nystatin + 210 mL Diphenhydramine + #5 tabs 20 mg hydrocortisone + Doxycycline 1,000 mg (tabs/cap).. Refills: 0. ondansetron (Zofran 8 mg Tab) 1 Tablets By Mouth 2 times a day. Refills: 1. ondansetron (Zofran ODT 4 mg Tab-Dis) 1 Tablets By Mouth every 8 hours as needed Nausea/Vomiting. Refills: 0. pantoprazole (Pantoprazole [address] Tab) topiramate (Topamax 100 mg Tab) 1 Tablets By Mouth every day. varenicline (varenicline 0.5 mg oral tablet) Step 1: Take 1 tablet daily for 3 days. Then 1 tablet twice daily for 4 days. Start 1 week before planned quit date. Stop smoking 8-35 days after starting medicine if quit date unplanned.. Refills: 0. varenicline (varenicline 1 mg oral tablet) 1 Tablets By Mouth 2 times a day. Step 2: Start on day 8. Take 1 tablet twice daily. Take with food and full glass of water. May continue additional 12 weeks if not successful.. Refills: 0. PATIENT EDUCATION INFORMATION: Instructions: Follow up: DIAGNOSIS: Normal [facility] ED Note-Nursingon 08-20-2022 ED Note-Nursing RAMSES went to patient room for assessment and patient was not in the room. Upon searching room, patient was nowhere to be found and her hospital gown was on the ground. Notified nurse discharge. Normal [facility] ED Note-Physicianon 08-20-20 ED Note-Physician Basic Information Time Seen: Zoë GERONIMO, Ubaldo Munroe 08/20/2022 17:06 Chief Complaint pt reports headache that started this morning. pt had lumbar puncture done yesterday at [facility]. 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 History of Present Illness Patient eloped from the ED before I evaluated patient. When I entered room to see patient, patient was no longer there, patient rolled head and left on the ground. I notified nursing. Nobody saw patient leave the building. Physical Exam Vitals & Measurements T: 36.8 ?C(Oral) HR: 81(Peripheral) RR: 18 BP: 118/82 SpO2: 98% HT: 170 cm WT: 83.1 kg BMI: 28.75 Assessment/Plan Disposition Plan Discharge Prescription List Prescriptions No active prescription medications Follow-up No qualifying data available Problem List/Past Medical History Ongoing Alcohol abuse Axillary lymphadenopathy Bipolar disorder BMI 29.0-29.9,adult Borderline personality disorder Grief reaction History of bypass of stomach Left breast mass Leukocytosis Over weight Pancreatic mass Smoker Vitamin D deficiency Historical Anxiety Borderline personality disorder Depression Disorder of oral soft tissue Intentional benzodiazepine overdose Omental infarction Procedure/Surgical History Endoscopic plantar fasciotomy (02/16/2020), Endoscopic plantar fasciotomy (06/02/2019), LEFT ELBOW ULNAR NERVE DECOMPRESSION (02/11/2019), x3, Foot, Gastric bypass operation, History of tubal ligation. Medications Inpatient No active inpatient medications Home APAP/butalbital/caffe ine 300 mg-50 mg-40 mg oral capsule, 1 cap(s), Oral, q4hr, PRN calcium (as calcium citrate) 200 mg oral tablet, Oral, BID Cymbalta, 60 mg, Oral, BID lisinopril 5 mg Tab, 5 mg= 1 tab(s), Oral, Daily Magic Mouthwash, 5 mL, Oral, TID Multi-Day Plus Minerals, Oral, Daily naproxen 500 mg Tab, 500 mg= 1 tab(s), Oral, BID, PRN nitrofurantoin macrocrystals-monohyd rate 100 mg Cap Pantoprazole [address] Tab Rexulti 3 mg oral tablet, 3 mg= 1 tab(s), Oral, Daily Topamax 100 mg Tab, 100 mg= 1 tab(s), Oral, Daily Tylenol, 325 mg, Oral, q4hr, PRN varenicline 0.5 mg oral tablet, See Instructions varenicline 1 mg oral tablet, 1 mg= 1 tab(s), Oral, BID Zofran 8 mg Tab, 8 mg= 1 tab(s), Oral, BID, 1 refills Zofran ODT 4 mg Tab-Dis, 4 mg= 1 tab(s), Oral, q8hr, PRN Allergies Abilify (suicidal) Coconut Oil (Swelling, Itching) Social History Alcohol - Medium Risk, 07/01/2021 Current, Liquor, 3-5 times per week, 01/29/2022 Substance Abuse - Denies Substance Abuse, 02/11/2019 Tobacco - High Risk, 02/07/2020 10 or more cigarettes (1/2 pack or more)/day in last 30 days Tobacco Use:. Never Smokeless Tobacco Use:. Cigarettes, Yes, 07/21/2022 Family History Cardiac arrest: Mother and Grandparent. Diabetes mellitus type 1: Mother and Grandparent. Hypertension: Mother and Grandparent. Primary malignant neoplasm of bladder: Father. Primary malignant neoplasm of female genital organ: Mother. Lab Results No qualifying data available. Diagnostic Results No qualifying data available. [facility] Comment on above: Result Comment: Elec tronically Signed By: Ubaldo Camp PA-C\.br\Date and Time Signed: 08/20/22 18:15 EST\.br\Electronically Co-Signed By: Jose Correia M.D.\.br\Date and Time Co-Signed: 08/20/22 18:50 EST ED Patient Education Noteon 08-20-2022 ED Patient Education Note Normal [facility] ED Patient Summaryon 022 ED Patient Summary [place] [id number] Patient Discharge Instructions Person Information Name: SHAZIA CHOU Age: 31 Years Arrival Date: 08/20/2022 16:39:01 Discharge Diagnosis: Primary Care Physician: Aimee Walker CNP Provider Information Primary Provider: Jose Correia M.D. Advanced Compressor Operator:Ubaldo Camp PA-C The exam and treatment you received in the Emergency Department were for an urgent problem and are not intended as complete care. It is important that you follow up with a doctor, nurse practitioner, or physician?s purchasing administrative assistant for ongoing care. If your symptoms become worse or you do not improve as expected and you are unable to reach your usual health care provider, you should return to the Emergency Department. We are available 24 hours a day. SHAZIA CHOU has been given the following list of patient education materials, prescriptions and follow-up instructions: Follow-up Instructions: In the event that this physician does not participate in your insurance network, please consult with your insurance company to find a nearby participating provider. Patient Education Materials: A MESSAGE TO ALL PATIENTS REGARDING OPIOIDS PRESCRIPTION OPIOIDS: WHAT YOU NEED TO KNOW Prescription opioids can be used to help relieve [id number] pain and are often prescribed following a surgery or injury, or for certain health conditions. These medications can be an important part of the treatment but also come with serious risks. It is important to work with your healthcare provider to make sure you are getting the safest, most effective care. WHAT ARE THE RISKS AND SIDE EFFECTS OF OPIOID USE? Prescription opioids carry serious risks of addiction and overdose, especially with prolonged use. An opioid overdose, often marked by slowed breathing, can cause sudden . The use of prescription opioids can have a number of side effects as well, even when taken as directed: ? Tolerance?meaning you might need to take more of the medication for the same pain relief ? Physical dependence?meaning you have symptoms of withdrawal when a medication is stopped ? Increased sensitivity to pain ? Constipation ? Nausea, vomiting, and dry mouth ? Sleepiness and dizziness ? Confusion ? Depression ? Low levels of testosterone that can result in lower sex drive, energy, and strength ? Itching and sweating RISKS ARE GREATER WITH: ? History of drug misuse, substance use disorder, or overdose ? Mental health conditions (such as depression or anxiety) ? Sleep apnea ? Older age (65 years and older) ? Avoid alcohol while taking prescription opioids. Also, unless specifically advised by your health care provider, medications to avoid include: ? Benzodiazepines (such as Xanax or Valium) ? Muscle relaxants (such as Soma or Flexeril) ? Hypnotics (such as Ambien or Lunesta) ? Other prescription opioids KNOW YOUR OPTIONS Talk to your health care provider about ways to manage your pain that don?t involve prescription opioids. Some of these options may actually work better and have fewer risks and side effects. Options may include: ? Pain relievers such as acetaminophen, ibuprofen, and naproxen ? Some medication that are also used for depression or seizures ? Physical therapy and exercise ? Cognitive behavioral therapy, a psychological, goal-directed approach, in which patients learn how to modify physical, behavioral, and emotional triggers of pain and stress. IF YOU ARE PRESCRIBED OPIOIDS FOR PAIN: ? Never take opioids in greater amounts or more often than prescribed. ? Follow up with your primary health care provider. o Work together to create a plan on how to manage your pain. o Talk about ways to help manage your pain that don?t involve prescription opioids. o Talk about any and all concerns and side effects. ? Help prevent misuse and abuse o Never sell or share prescription opioids. o Never use another person?s prescription opioids. ? Store prescription opioids in a secure place and out of reach of others (this may include visitors, children, friends, and family). ? Safely dispose of unused prescription opioids: Find your community drug take-back program or your pharmacy mail-back program, or flush them down the toilet, following guidance from the Food and Drug Administration (www.fda.gov/Drugs/Re sourcesForYou). ? Visit www.cdc.gov/drugoverd ose to learn about the risks of opioids abuse and overdose. ? If you believe you may be struggling with addiction, tell your health care navigator and ask for guidance or call [facility] [employer] Helpline at 0-819-870-ZQRX. j Source: [place] Department of Health and Human Services/Center for Disease Control & Prevention [facility] Medications Given: Medication Dose Route No me (more content not included)... Normal [facility] ED Note-Physicianon 08-19-20 ED Note-Physician Basic Information Time Seen: Torres GERONIMO, Shama Bellamy. 08/18/2022 17:30 Chief Complaint Pt c/o L foot pain. No known injury, but pt is limping and having difficulty ambulating. Pt also notes difficullty sitting due to IIH causing hypertension; LP scheduled tomorrow for this. History of Present Illness Pt is a 31 yo female who presents with left ankle pain. 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 She is seeing a neurologist and is scheduled for an outpatient LP tomorrow. She states she was told to discontinue her meds and cannot take Tylenol or aspirin before the procedure. Pt states that her memory is poor. History is limited to this finding. She is unsure of whether she fell or any trauma occurred. Family member/friend in room denies observing a trauma from the patient. Patient states that she is unable to walk on her left foot. The pain begins at the anterior aspect of the left ankle and radiates down the medial and lateral aspects of the foot to her toes. She denies paraesthesia, paralysis, or significant color changes. Pt denies other symptoms at this time. Review of Systems Constitutional: no fever, no chills, no sweats, no weakness Respiratory: no shortness of breath, no cough, no orthopnea, no wheezing Cardiovascular: no chest pain, no palpitations, no edema Gastrointestinal: no nausea, no vomiting, no diarrhea, no GI bleeding Genitourinary: no dysuria, no hematuria, no discharge, no pain Musculoskeletal: mild trauma. acute left ankle pain Additional ROS info: Except as noted in the above Review of Systems and in the History of Present Illness all other systems have been reviewed and are negative or noncontributory. Physical Exam Vitals & Measurements T: 36.7 ?C(Oral) HR: 84(Peripheral) RR: 18 BP: 120/83 SpO2: 98% HT: 170.2 cm WT: 83.1 kg BMI: 28.69 31 yo female in no acute respiratory distress. Pt is laying down across the reserve room chairs. She states, [she] needs be horizontal so her pressure doesn't rise. An ED wheelchair is positioned in the doorway. General: alert, no acute distress Skin: warm, dry Head: no trauma, normocephalic Neck: Trachea midline, no adenopathy, no tenderness Eye: normal conjunctiva, sclera clear Cardiovascular: regular rate normal peripheral perfusion Respiratory: respirations non labored Chest wall: no deformity. Extremities: no deformity, no trauma posterior tibial pulses +2/4 b/l, dorsalis pedis pulse +2/4 on left. Skin warm, dry, and symmetrical on both ankle. Mild swelling at anterior ankle. Pain with dorsiflexion, plantarflexion, inversion, and eversion. Ankle and foot muscles intact on left. Sensation intact on left. No bruising, lesions, rashes. Neurological: oriented x 4, LOC appropriate for age,motor strength equal & normal bilaterally, sensation equal & normal bilaterally, speech normal, Memory/recall decreased. Psychiatric: cooperative, affect appropriate for age, normal judgement, normal psychiatric thoughts. Medical Decision Making Contusion, sprain, strain, fracture, dislocation. Assessment/Plan Independently evaluated and examined this patient myself. I also supervised the medical student in his care of this patient. The patient does feel that she possibly could have injured this, as she does have a small bump to the top of the foot that is causing her some discomfort. I discussed with the patient that the radiologist read both her plain film radiographs of her foot and ankle and there was no evidence of any acute injury by radiographic evaluation. I did discuss with the patient that sprains and strains would not show up on plain film radiographs. I discussed the plan of care including an Kushal wrap, and postop shoe. Patient does have crutches at home and is familiar with the use of them. I discussed the use of RICE therapy. Distal neurovascular was intact after placement of Kushal wrap and postop shoe. I discussed with the patient that we will give her information should she need to follow-up with orthopedics. The patient will be discharged to home in stable condition. She is to return to the emergency department for any further problems or concerns. Disposition Plan Patient Discharge Condition Stable Discharge Disposition Home Discharge Prescription List Prescriptions No active prescription medications Follow-up No qualifying data available Attestation Diagnosis: Left foot pain Problem List/Past Medical History Ongoing Alcohol abuse Axillary lymphadenopathy Bipolar disorder BMI 29.0-29.9,adult Borderline personality disorder Grief reaction History of bypass of stomach Left breast mass Leukocytosis Over weight Pancreatic mass Smoker Vitamin D deficiency Historical Anxiety Borderline personality disorder Depression Disorder of oral soft tissue Intentional benzodiazepine overdose Omental infarction Procedure/Surgical History Endoscopic plantar fascio (more content not included)... Normal [facility] Comment on above: Result Comment: Elec tronically Signed By: Chuck Arechiga\.br\Date and Time Signed: 08/18/22 18:13 EST\.br\Electronically Co-Signed By: Shama Macdonald PA-C\.br\Date and Time Co-Signed: 08/18/22 23:07 EST\.br\Electronically Co-Signed By: Alexis Shukla DO\.br\Date and Time Co-Signed: 08/19/22 07:19 EST No Panel InformationOrdered By: Dorita Niño on 08-19-2022 CSF Glucose 55 mg/dL 40-70 [facility] CSF Total Protein 24 mg/dL 15-45 [facility] Consent for Treatmenton Consent for Treatment [id number] .00CD:127 Normal [facility] Discharge Instructionson Discharge Instructions [id number] 1.00CD:127 Normal [facility] ED Clinical Summaryon 2021 ED Clinical Summary [place] [id number] ED Clinical Summary Person Information Name: SHAZIA CHOU [facility] Age: 31 Years : 1990 Sex: Female Language: Djiboutian PCP: Aimee Walker CNP Marital Status: Phone: [phone] MRN: Visit Id: Visit Reason: Foot pain-swelling; FOOT PAIN, VISION CHANGE Speciality: Acuity: 4 Enc Type: Emergency Med Service: Emergency Arrival: 08/18/2022 17:20:28 Discharge: 08/18/2022 19:56:36 LOS: 000 02:36 Checkin: 08/18/2022 17:20:28 Checkout: 08/18/2022 19:56:36 Dispo Type: Home (Routine DC) EVENTS: Event Name Event Status Request Date/Time Start Date/Time Complete Date/Time Arrive Complete 08/18/2022 17:20:28 08/18/2022 17:20:28 08/18/2022 17:20:28 Document Home Meds Request 08/18/2022 17:20:28 Triage Complete 08/18/2022 17:20:28 08/18/2022 17:29:33 08/18/2022 17:29:33 Bed Assign Complete 08/18/2022 17:29:52 08/18/2022 17:29:52 08/18/2022 17:29:52 Dr Exam Complete 08/18/2022 17:29:52 08/18/2022 17:30:58 08/18/2022 17:30:58 RN Exam Complete 08/18/2022 17:29:52 08/18/2022 19:50:52 08/18/2022 19:50:52 Registration Complete 08/18/2022 17:30:58 08/18/2022 17:36:42 08/18/2022 17:36:42 Dr Exam Complete 08/18/2022 17:32:30 08/18/2022 17:32:30 08/18/2022 17:32:30 Reg Complete Request 08/18/2022 17:36:42 Reg Bed Request Complete 08/18/2022 17:36:42 08/18/2022 17:36:42 08/18/2022 17:36:42 Dr Exam Complete 08/18/2022 17:47:09 08/18/2022 17:47:09 08/18/2022 17:47:09 Registration Request 08/18/2022 17:47:09 X-Ray Cancel 08/18/2022 17:57:02 08/18/2022 17:57:40 X-Ray Complete 08/18/2022 17:58:50 08/18/2022 18:26:17 08/18/2022 18:43:54 Wet Read Request 08/18/2022 18:43:54 Patient Care Request 08/18/2022 18:58:45 Patient Care Request 08/18/2022 19:06:13 Discharge Complete 08/18/2022 19:10:25 08/18/2022 19:56:49 08/18/2022 19:56:49 Transfer Complete 08/18/2022 19:56:49 08/18/2022 19:56:49 08/18/2022 19:56:49 ADDRESS: [address] [place] [address] [phone] PHYS DOC NOTES: MEDICAL INFORMATION: Prescriptions Given: Medications to Continue with No Changes Other Medications acetaminophen (Tylenol) 325 Milligram By Mouth every 4 hours as needed as needed for pain. APAP/butalbital/caffe ine (APAP/butalbital/caff eine 300 mg-50 mg-40 mg oral capsule) 1 Capsules By Mouth every 4 hours as needed for headache. Refills: 0. brexpiprazole (Rexulti 3 mg oral tablet) 1 Tablets By Mouth every day. calcium citrate (calcium (as calcium citrate) 200 mg oral tablet) By Mouth 2 times a day. duloxetine (Cymbalta) 60 Milligram By Mouth 2 times a day. per dr chaparro. lisinopril (lisinopril 5 mg Tab) 1 Tablets By Mouth every day. Refills: 0. multivitamin with minerals (Multi-Day Plus Minerals) By Mouth every day. naproxen (naproxen 500 mg Tab) 1 Tablets By Mouth 2 times a day as needed for pain. Refills: 0. nitrofurantoin (nitrofurantoin macrocrystals-monohyd rate 100 mg Cap) TAKE 1 CAPSULE BY MOUTH TWICE A DAY FOR 5 DAYS WITH FOOD. Non-Formulary Medication (Magic Mouthwash) 5 Milliliter By Mouth 3 times a day for 2 Weeks. Swish and swallow. 30 mL Nystatin + 210 mL Diphenhydramine + #5 tabs 20 mg hydrocortisone + Doxycycline 1,000 mg (tabs/cap).. Refills: 0. ondansetron (Zofran 8 mg Tab) 1 Tablets By Mouth 2 times a day. Refills: 1. ondansetron (Zofran ODT 4 mg Tab-Dis) 1 Tablets By Mouth every 8 hours as needed Nausea/Vomiting. Refills: 0. pantoprazole (Pantoprazole [address] Tab) topiramate (Topamax 100 mg Tab) 1 Tablets By Mouth every day. varenicline (varenicline 0.5 mg oral tablet) Step 1: Take 1 tablet daily for 3 days. Then 1 tablet twice daily for 4 days. Start 1 week before planned quit date. Stop smoking 8-35 days after starting medicine if quit date unplanned.. Refills: 0. varenicline (varenicline 1 mg oral tablet) 1 Tablets By Mouth 2 times a day. Step 2: Start on day 8. Take 1 tablet twice daily. Take with food and full glass of water. May continue additional 12 weeks if not successful.. Refills: 0. PATIENT EDUCATION INFORMATION: Instructions: Foot Pain; Foot Sprain; Elastic Bandage and RICE Therapy Follow up: With: Address: When: Hilton Gillis [address] [place] [address] JIT Solaire (1) In 3 days 08/21/2022 With: Address: When: Aimee Walker In 3 days DIAGNOSIS: 1:Strain of left ankle and foot Normal [facility] ED Patient Education Noteon 08-18-2022 ED Patient Education Note Orthopedics Foot Pain Many things can cause foot pain. Some common causes are: ? An injury. ? A sprain. ? Arthritis. ? Blisters. ? Bunions. Follow these instructions at home: Managing pain, stiffness, and swelling If directed, put ice on the painful area: ? Put ice in a plastic bag. ? Place a towel between your skin and the bag. ? Leave the ice on for 20 minutes, 2?3 times a day. Activity ? Do not stand or walk for long periods. ? Return to your normal activities as told by your health care provider. Ask your health care provider what activities are safe for you. ? Do stretches to relieve foot pain and stiffness as told by your health care provider. ? Do not lift anything that is heavier than 10 lb (4.5 kg), or the limit that you are told, until your health care provider says that it is safe. Lifting a lot of weight can put added pressure on your feet. Lifestyle ? Wear comfortable, supportive shoes that fit you well. Do not wear high heels. ? Keep your feet clean and dry. General instructions ? Take ojog-ila-qycqrby and prescription medicines only as told by your health care provider. ? Rub your foot gently. ? Pay attention to any changes in your symptoms. ? Keep all follow-up visits as told by your health care provider. This is important. Contact a health care provider if: ? Your pain does not get better after a few days of self-care. ? Your pain gets worse. ? You cannot stand on your foot. Get help right away if: ? Your foot is numb or tingling. ? Your foot or toes are swollen. ? Your foot or toes turn white or blue. ? You have warmth and redness along your foot. Summary ? Common causes of foot pain are injury, sprain, arthritis, blisters or bunions. ? Ice, medicines, and comfortable shoes may help foot pain. ? Contact your health care provider if your pain does not get better after a few days of self-care. This information is not intended to replace advice given to you by your health care provider. Make sure you discuss any questions you have with your health care provider. Document Released: 09/26/2016 Document Revised: 06/16/2019 Document Reviewed: 06/16/2019 [employer] Patient Education ? 2019 [employer] Foot Sprain A foot sprain is an injury to one of the strong bands of tissue (ligaments) that connect and support the bones in your feet. The ligament can be stretched too much and tear. A tear can be either partial or complete. The severity of the sprain depends on how much of the ligament was damaged or torn. What are the causes? This condition is usually caused by suddenly twisting or pivoting your foot. What increases the risk? This injury is more likely to occur in people who: ? Play a sport, such as basketball or football. ? Exercise or play a sport without warming up. ? Start a new workout or sport. ? Suddenly increase how long or hard they exercise or play a sport. ? Have previously injured their foot or ankle. What are the signs or symptoms? Symptoms of this condition start soon after an injury and include: ? Pain, especially in the arch of the foot. ? Bruising. ? Swelling. ? Inability to walk or use the foot to support body weight. How is this diagnosed? This condition is diagnosed with a medical history and physical exam. You may also have imaging tests, such as: ? X-rays to make sure there are no broken bones (fractures). ? An MRI to see if the ligament is torn. How is this treated? Treatment for this condition depends on the severity of the sprain. ? Mild sprains can be treated with: ? Rest, ice, compression, and elevation (RICE). ? Keeping your foot in a fixed position (immobilization) for a period of time. This is done if your ligament is overstretched or partially torn. Your health care provider will apply a bandage, splint, or walking boot to keep your foot from moving until it heals. ? Using crutches or a scooter for a few weeks to avoid putting weight on your foot while it is healing. ? Major sprains can be treated with: ? Surgery. This is done if your ligament is fully torn and a procedure is needed to reconnect it to the bone. ? A cast or splint. This will be needed after surgery. A cast or splint will need to stay on your foot while it heals. ? In both types of sprains, you may need to exercise or have physical therapy to strengthen your foot. Follow these instructions at home: If you have a bandage, splint, or boot: ? Wear the bandage, splint, or boot as told by your health care provider. Remove only as told by your health care provider. ? Loosen the bandage, splint, or boot if your toes tingle, become numb, or turn cold and blue. ? Keep the bandage, splint, or boot clean and dry. If you have a cast: ? Do not stick anything inside the cast to scratch your skin. Doing that increases your risk for infection. ? Check the skin around the cast every da (more content not included)... Normal [facility] ED Patient Summaryon 022 ED Patient Summary [facility] [address] [place], [place] [address] Patient Discharge Instructions Person Information Name: SHAZIA CHOU Age: 31 Years Arrival Date: 08/18/2022 17:20:28 Discharge Diagnosis: 1:Strain of left ankle and foot Primary Care Physician: Aimee Walker CNP Provider Information Primary Provider: Alexis Shukla DO Advanced Compressor Operator:None The exam and treatment you received in the Emergency Department were for an urgent problem and are not intended as complete care. It is important that you follow up with a doctor, nurse practitioner, or physician?s purchasing administrative assistant for ongoing care. If your symptoms become worse or you do not improve as expected and you are unable to reach your usual health care provider, you should return to the Emergency Department. We are available 24 hours a day. SHAZIA CHOU has been given the following list of patient education materials, prescriptions and follow-up instructions: Follow-up Instructions: With: Address: When: Hilton Gillis [address] [place] [address] Business (1) In 3 days 08/21/2022 With: Address: When: Aimee Walker In 3 days In the event that this physician does not participate in your insurance network, please consult with your insurance company to find a nearby participating provider. Patient Education Materials: Foot Pain; Foot Sprain; Elastic Bandage and RICE Therapy A MESSAGE TO ALL PATIENTS REGARDING OPIOIDS PRESCRIPTION OPIOIDS: WHAT YOU NEED TO KNOW Prescription opioids can be used to help relieve neoyaona-bm-knfnko pain and are often prescribed following a surgery or injury, or for certain health conditions. These medications can be an important part of the treatment but also come with serious risks. It is important to work with your healthcare provider to make sure you are getting the safest, most effective care. WHAT ARE THE RISKS AND SIDE EFFECTS OF OPIOID USE? Prescription opioids carry serious risks of addiction and overdose, especially with prolonged use. An opioid overdose, often marked by slowed breathing, can cause sudden . The use of prescription opioids can have a number of side effects as well, even when taken as directed: ? Tolerance?meaning you might need to take more of the medication for the same pain relief ? Physical dependence?meaning you have symptoms of withdrawal when a medication is stopped ? Increased sensitivity to pain ? Constipation ? Nausea, vomiting, and dry mouth ? Sleepiness and dizziness ? Confusion ? Depression ? Low levels of testosterone that can result in lower sex drive, energy, and strength ? Itching and sweating RISKS ARE GREATER WITH: ? History of drug misuse, substance use disorder, or overdose ? Mental health conditions (such as depression or anxiety) ? Sleep apnea ? Older age (65 years and older) ? Avoid alcohol while taking prescription opioids. Also, unless specifically advised by your health care provider, medications to avoid include: ? Benzodiazepines (such as Xanax or Valium) ? Muscle relaxants (such as Soma or Flexeril) ? Hypnotics (such as Ambien or Lunesta) ? Other prescription opioids KNOW YOUR OPTIONS Talk to your health care provider about ways to manage your pain that don?t involve prescription opioids. Some of these options may actually work better and have fewer risks and side effects. Options may include: ? Pain relievers such as acetaminophen, ibuprofen, and naproxen ? Some medication that are also used for depression or seizures ? Physical therapy and exercise ? Cognitive behavioral therapy, a psychological, goal-directed approach, in which patients learn how to modify physical, behavioral, and emotional triggers of pain and stress. IF YOU ARE PRESCRIBED OPIOIDS FOR PAIN: ? Never take opioids in greater amounts or more often than prescribed. ? Follow up with your primary health care provider. o Work together to create a plan on how to manage your pain. o Talk about ways to help manage your pain that don?t involve prescription opioids. o Talk about any and all concerns and side effects. ? Help prevent misuse and abuse o Never sell or share prescription opioids. o Never use another person?s prescription opioids. ? Store prescription opioids in a secure place and out of reach of others (this may include visitors, children, friends, and family). ? Safely dispose of unused prescription opioids: Find your community drug take-back program or your pharmacy mail-back program, or flush them down the toilet, following guidance from the Food and Drug Administration (www.fda.gov/Drugs/Re sourcesForYou). ? Visit www.cdc.gov/drugoverd ose to learn about the risks of opioids abuse and overdose. ? If you believe you may be struggling with addiction, tell your health care navigator and ask for oniel (more content not included)... Normal [facility] Outside [facility] Correspo ndenceon 08-18-2022 Outside [facility] Correspondence [id number] .00CD:127 Normal [facility] XR Ankle 3+ Views Lefton XR Ankle 3+ Views Left Exam Date/Time: 08/18/2022 18:43 EST Reason for Exam: Pain Report IMPRESSION: NO EVIDENCE OF A FRACTURE OR OTHER BONE ABNORMALITY IN THE LEFT ANKLE. CLINICAL HISTORY: Pain COMPARISON: None available. FINDINGS: AP, lateral and oblique views of the left ankle demonstrates no fracture, dislocation or other bone abnormality. FINAL REPORT Dictated: 08/18/2022 6:47 pm Julio Snyder MD Signed (Electronic Signature): 08/18/2022 6:47 pm Signed by: Julio Snyder MD Transcribed by: MARCO Technologist: CHUCHO Normal [facility] XR Foot 2 Views Lefton 08-18 XR Foot 2 Views Left Exam Date/Time: 08/18/2022 18:43 EST Reason for Exam: Pain, Traumatic Report IMPRESSION: NEGATIVE LEFT FOOT. CLINICAL HISTORY: Pain, Traumatic COMPARISON: None available. FINDINGS: AP and lateral views of the left foot demonstrate no evidence of a fracture, dislocation, bone or joint abnormality. FINAL REPORT Dictated: 08/18/2022 6:48 pm Julio Snyder MD Signed (Electronic Signature): 08/18/2022 6:48 pm Signed by: Julio Snyder MD Transcribed by: MARCO Technologist: COLLEEN Normal [facility] Consultation Noteon 08-17-20 Consultation Note [id number] .00CD:127 Normal [facility] CBC AUTO DIFFon 08-16-2022 BASO # 0.1 103/ul Normal 0.0-0.1 [facility] Comment on above: Performed By: #### U MICRO, ERUR #### [facility] [address] [place] [address] Dr. Manuel Sandhu Basophils/100 WBC (Bld) 0.4 % Normal 0.2-2.0 [facility] Comment on above: Performed By: #### U MICRO, ERUR #### [facility] [address] [place] [address] Dr. Manuel Sandhu EO # 0.2 103/ul Normal 0.0-0.7 [facility] Comment on above: Performed By: #### U MICRO, ERUR #### [facility] [address] [place] [address] Dr. Manuel Sandhu Eosinophils/100 WBC (Bld) 1.8 % Normal 0.9-7.0 [facility] Comment on above: Performed By: #### U MICRO, ERUR #### [facility] [address] [place] [address] Dr. Manuel Sandhu Erythrocyte distribution width (RBC) [Ratio] 13.6 % Normal 11.0-15.0 [facility] Comment on above: Performed By: #### U MICRO, ERUR #### [facility] [address] [place] [address] Dr. Manuel Sandhu Hematocrit (Bld) [Volume fraction] 35.8 % Critically low 36.0-48.0 [facility] Comment on above: Performed By: #### U MICRO, ERUR #### [facility] [address] [place] [address] Dr. Manuel Sandhu Hemoglobin (Bld) [Mass/Vol] 12.2 g/dL Normal 12.0-16.0 [facility] Comment on above: Performed By: #### U MICRO, ERUR #### [facility] [address] [place] [address] [address] aMnuel Sandhu IG # 0.05 10e3/ul Critically high 0.00-0.03 [facility] Comment on above: Performed By: #### U MICRO, ERUR #### [facility] [address] [place] [address] [address] Manuel Sandhu IG % 0.4 % Normal 0.0-0.5 [facility] Comment on above: Performed By: #### U MICRO, ERUR #### [facility] [address] [place] [address] [address] Manuel Sandhu LYMPH # 2.0 103/ul Normal 1.2-3.8 [facility] Comment on above: Performed By: #### U MICRO, ERUR #### [facility] [address] [place] [address] Dr. Manuel Sandhu Lymphocytes/100 WBC (Bld) 18.1 % Critically low 20.5-60.0 [facility] Comment on above: Performed By: #### U MICRO, ERUR #### [facility] [address] [place] [address] [address] Manuel Sandhu MANUAL DIFF REQ NO Normal [facility] Comment on above: Performed By: #### U MICRO, ERUR #### [facility] [address] [place] [address] [address] Manuel Sandhu MCH (RBC) [Entitic mass] 32.0 pg Normal 26.7-34.0 [facility] Comment on above: Performed By: #### U MICRO, ERUR #### [facility] [address] [place] [address] [address] Manuel Sandhu MCHC (RBC) [Mass/Vol] 34.1 g/dL Normal 29.9-35.2 [facility] Comment on above: Performed By: #### U MICRO, ERUR #### [facility] [address] [address] [address] Manuel Sandhu MCV (RBC) [Entitic vol] 94.0 fL Normal 81.0-99.0 [facility] Comment on above: Performed By: #### U MICRO, ERUR #### [facility] [address] [address] [address] Manuel Sandhu MONO # 0.7 103/ul Normal 0.3-0.8 [facility] Comment on above: Performed By: #### U MICRO, ERUR #### [facility] [address] [place] [address] Dr. Manuel Sandhu Monocytes/100 WBC (Bld) 5.8 % Normal 1.7-12.0 [facility] Comment on above: Performed By: #### U MICRO, ERUR #### [facility] [address] [address] [address] Manuel Sandhu NEUT # 8.2 103/ul Critically high 1.4-6.5 [facility] Comment on above: Performed By: #### U MICRO, ERUR #### [facility] [address] [place] [address] Dr. Manuel Sandhu Neutrophils/100 WBC (Bld) 73.5 % Normal 43.0-75.0 [facility] Comment on above: Performed By: #### U MICRO, ERUR #### [facility] [address] [place] [address] Dr. Manuel Sandhu Platelet mean volume (Bld) [Entitic vol] 11.3 fL Normal 9.5-13.5 [facility] Comment on above: Performed By: #### U MICRO, ERUR #### [facility] [address] [place] [address] Dr. Manuel Sandhu PLT 284 103/ul Normal 150-450 [facility] Comment on above: Performed By: #### U MICRO, ERUR #### [facility] [address] [address] [address] Manuel Sandhu RBC 3.81 106/ul Critically low 4.20-5.40 [facility] Comment on above: Performed By: #### U MICRO, ERUR #### [facility] [address] [place] [address] Dr. Manuel Sandhu WBC 11.2 103/ul Critically high 4.0-11.0 [facility] Comment on above: Performed By: #### U MICRO, ERUR #### [facility] [address] [place] [address] Dr. Manuel Sandhu D-DIMERon 08-16-2022 D-DIMER 0.34 mg/L FEU Normal <=0.59 [facility] Comment on above: Performed By: #### U MICRO, ERUR #### [facility] [address] [place] [address] Dr. Manuel Sandhu D-DIMER COMMENTS SEE BELOW Normal [facility] Comment on above: Result Comment: Incr eases in D-Dimer concentration observed with thromboembolic events can be variable due to localization, size, and age of the thrombus. Therefore, a thromboembolic event cannot be diagnosed with certainty on the basis of the reference range. D-Dimers may also be elevated for a variety of disorders including: advanced age, , coronary disease, cancer, liver disease, infection, inflammation, hematoma, DIC, trauma, post-surgery, diabetes, thrombolytic or anticoagulant therapy, stress, and generalized hospitalization. Performed By: #### U MICRO, ERUR #### [facility] [address] [place] [address] Dr. Manuel Sandhu PROF CHEM 8 (BAS METB)on Anion gap [Moles/Vol] 10.6 mmol/L Normal [facility] Comment on above: Performed By: #### I NFLUAB #### [facility] [address] [place] [address] Dr. Manuel Sandhu Calcium [Mass/Vol] 9.2 mg/dL Normal 8.5-10.1 [facility] Comment on above: Performed By: #### I NFLUAB #### [facility] [address] [place] [address] Dr. Manuel Sandhu Chloride [Moles/Vol] 103 mmol/L Normal 98-107 [facility] Comment on above: Performed By: #### I NFLUAB #### [facility] [address] [place] [address] Dr. Manuel Sandhu CO2 [Moles/Vol] 28.4 mmol/L Normal 21.0-32.0 [facility] Comment on above: Performed By: #### I NFLUAB #### [facility] [address] [address] [address] Manuel Sandhu Creatinine [Mass/Vol] 0.61 mg/dL Normal 0.55-1.02 [facility] Comment on above: Performed By: #### I NFLUAB #### [facility] [address] [address] [address] Manuel Sandhu EGFR-AF EQUATORIAL GUINEAN >60 Normal >=60 [facility] Comment on above: Performed By: #### I NFLUAB #### [facility] [address] [address] [address] Manuel Sandhu EGFR-NON AF EQUATORIAL GUINEAN >60 Normal >=60 [facility] Comment on above: Performed By: #### I NFLUAB #### [facility] [address] [address] [address] Manuel Sandhu Glucose [Mass/Vol] 90 mg/dL Normal 74-106 [facility] Comment on above: Performed By: #### I NFLUAB #### [facility] [address] [address] [address] Manuel Sandhu Potassium [Moles/Vol] 4.0 mmol/L Normal 3.5-5.1 [facility] Comment on above: Performed By: #### I NFLUAB #### [facility] [address] [address] [address] Manuel Sandhu Sodium [Moles/Vol] 138 mmol/L Normal 136-145 [facility] Comment on above: Performed By: #### I NFLUAB #### [facility] [address] [address] [address] Manuel Sandhu Urea nitrogen [Mass/Vol] 16.0 mg/dL Normal 7.0-18.0 [facility] Comment on above: Performed By: #### I NFLUAB #### [facility] [address] [address] [address] Manuel Sandhu Urea nitrogen/Creatinine [Mass ratio] 26.2 mg/mg Normal [facility] Comment on above: Performed By: #### I NFLUAB #### [facility] [address] [address] [address] Manuel Sandhu XR CHEST 1 Von 08-16-2022 XR CHEST 1 V EXAM: XR CHEST 1 V HISTORY: CHEST PAIN, UNSPECIFIED. Shortness of breath. COMPARISON: Comparison made to chest x-ray dated 07/19/2022. TECHNIQUE: Single AP portable chest x-ray. FINDINGS: The lungs are clear bilaterally and the cardiomediastinal silhouette is within normal limits. IMPRESSION: 1. No acute cardiopulmonary disease. Electronically authenticated by: YOLI FRANKS Date: 2022-08-16 14:16 Normal [facility] Coding Summary.on 08-13-2022 Coding Summary. [id number] G h0bWw+PGhlYWQ+HJ7PBQQ uU40dwABskA2EN4vYZX5B JPIGGPAVWG1LEE0icVI2Z StiM9RgsmUc ChateUBeZD77DUc6KRF2l IokKUiuiQ7pzECtQ6e7Hl KiHI00kT57QGtbEGAmDwF 3LjZpbjsgbWFy M3peSsXaqPHqQjo+PHRhY mxlIHdpZHRoPScxMDAlJy OcqAwhOE8eBm4lEXPvFRV vbGxhcHNlOiBj c6zlJJEwLWsvBK6rdLdjO 1KyiMW7IUGhb6u9Tp17uI I+TCUcETD3fBjiEZfyx97 5OkHjh6brFQF3 gDJbMBznNES4L73zb4P6A KWdDGYxEKP4aHK5tJ8aqT aqrnhcB9GikHLmBrE0CEZ 6fWPmhA7ajPmn fpznjL6vBaa+F95MTT9RK BAJUL2VHlw9F0TuIzwubR I+FO27LTAaGY33uRQblNM ai4gyxMs4DkIx WFMvHOJ9bGlqCFocu5NlE AUwJ51ybLMux9C8DUGceV crzJEoLeLpnVM7oW1iHUh nlhovi9vlhdwn Lvtug7ktwf34bV26A90fO MjbELAlKDG5JSXhBAFzfS fqke2sgU6wZm9+NKkwu2d gu7hkoGx1MmUy POAswoDnuKyrZHQ5d5DiC b63S3FhaZmiz4IhGur3tu 65xJGcl1V5fYF5UPvrRPO etX8nFBphMaK4 FXAjZzJljW12yNZdYWfaH k8alPyvaPucSP3hGCBwtx mkXSYmpV2sMPUhhLVusPp gUS0iZIMnhkfz i363CmPqZYD2NNXvwAYsG 1SjrQ0sFaKzHKKgDNCiQ3 EooCZsIUnbY870OVdyEcD 0FZOnfrWkA9Wl TOZuyYnqKpB8w0X6Pb8Go 3AzrwyhLVV8CPhfIEMrBs JoOqWnRcV3R6WjAqs9LMW zyNxyJO8aP3Pj KTCdnrjwzwpvzCK1ORBeU AOngP16zVVtZRfxCo3pz9 V4h980SHJqJKMbhN01Ij9 udDogMTBwdCBU rF4vfxvqz8ukvwzaGzUeR RXnPKm1HFg0SLGmfMdvOo VnTAC2PhS0JBG8iIOtzN1 saRmscblnfI1i Oyc+N38vcN8hRKD8XNR9m cfzIHBkrgIpQK22RJ07U3 RyPjwvdGFibGU+PGRpdiB aaKxmAQ2eAuLo z5olw4GpUJjjE4AqCNAeT RcbOmm1PSMeXVG3wAR3wI 2mLWVrKLuzg3Z2rBG2Z1C ggoRaju5te3bu QMJeXMvpY57okTUrl9N5C IFwcMV2YYJgbDlzInIhfY 93Oyc+ZOMzpQrrt6BwIke sx6bga5wvuUo7 MrPlUKEhcvVzbHqtFFB7f 3DeOr59K99zSVlyLCTiQL IbCYSrIIOacXglzg4dtF1 wIi8+PGNvbCB3 cUY5eQ0mBEEsTyU1LSxrB 936CcLcpAWtGfwdg4fkb3 idbBw4XlBgEWEsdeUfcYp bOGF6z1AkQi08 K64aBDdmOUVxWHYzDPEmB VDldMzypb1qhF4gKw3+PC 3hh9lmeh80lY87zSG+PHR aOZL7fJneDCrx LBEmhE1hMZzpXtM6NAMrZ oGwqZ07wDOhGXgfSb3kiZ gwlLkiTW1oDBGkllrhn23 2BhYls1wcLNGf gIHiNXjvOUS4R03bf3Z2Z CMtFIEuQDD9uLG7iR8gbX lnbjogbGVmdDsgdmVydGl pSYwvAMkzV466 IHRvcDsnPlBhdGllbnQgT yIzIFz8X9PmPej1FROyoB dsYL8foQHzVEukAx2mdLk tsBvmLP4mFPKc yolaz714SdKrd3unVQBen HBkTSysPBE3F01qd1U5KE KuYDFkMVF3zVY2cP4eoEi nbjogbGVmdDsg yvWqjTkwVUveBZtqE410G HRvcDsnPkJpcnRoIERhdG B8DJ60CJ56uBHkq6I9bYX 0U9GrKNTxfqpo qvscyJX0JHVpYHMfrF38Y w8ubVuhOz2ePUSqGCC1NP EdnCNnT6MsjI3eGsErIKW tEIJfK1LkvGCh PWszD328UFstQlY1HZLog mDaY4PuQJEdxMysGgY2k4 B0Fa6QA3L7PE41SC39fCM ye3O5sMD2U1Zd ZUMujuhgelezdQK0LLVaB JOseO22Rv4qyCrxUf5tXW DiOME1UNXbxPJbX9WyzW3 yOiAjMDAwMDAw M2PlyYEgERjvC416DGaoV qM8BDBcbsUnO7DzNSFoiU eiRrW0t9Y4Tb9TKUa0WC4 0MC20zZMia2N4 dZG8J0ZqEIHreuegtoida KL3QHErWIQyuX93Qn9ubL ucSh4nSNAsMMS1WRYzaVK mQ2WdtU0dLiNb ANNuWBNfJ8YmwXRxKSxxH 056TVddOoE2IEGnnuAyP2 BeNGShcVafYsV8l1F0Xu3 FVZBiQN44CJQ0 xWN8KF80WC59A6MmKzwnu GFibGU+PHRhYmxlIHdpZH RoPScxMDAlJyBzdHlsZT0 xXj9nBHRsHXHg dYiuwUAkCtNwj7lrIYUnJ LbcGK9lmLejQ4LpdBM3IV Clf7v2Hh16H27nE3AkxUZ +XPGyhCN6mJY8 dJ3eQvTsNvR3YMziN118I iOfnGCnCpmht0wdl9imxB x2EtY0DQVkxkQmrJrrVYX 4l8LxMl77E95p IHdpZHRoPSIxNSUiIHZhb Ibpye9iqP0nIf3+PGNvbC Q1rUI4jE3aXiCsNvD1WMa gD235RiLkxQXp Mdwpq7qgq9vxpQp8EjMcQ UXnocLglKvxGNW7p0McMq 04J4SfzJnqh7SqHlp1zt8 5aZXyq6N4iDP2 Q9JhQDZiwlqosLWppUxwB B3lUESozwvrRVZyeL8zTE IxB5r4QhEcWpN7RUhtX9C mycI4OHBeaOKp CKczAPL1F61ja9C3TWSuC PWgLMO1xAF2hI3awRldqa ogbGVmdDsgdmVydGljYWw nGZfiF001OCYm iUjmYVZleH4yZMQmsJFul ZywHH7pTNKkgwpdXxLZYt PFUA6wKQuMB7YNJ4KvZBw vdGQ+PHRkIHN0 bRrrEWcbVPGqvL6gPJAbW 1i6MlKwRzF7COixT3CbEF FgiqkkVs27wY0gFxFtCiS 7BFtnA0LaitU2 DAJvwTCzWCunKHQ1F13zv 7E4BYSmJWKnLZW9dUU8qB 1hbGlnbjogbGVmdDsgdmV ydGljYWwtYWxp C228JSImgEzgEdL2ZkL4A zF8MIw8L5PlEiq9JKJmvB xpYV8psRExAOnyLe1pmVt ogGfsDQ4bNHRk jtnxPWAtnQ4aBSQddVRri LnbQO5gVSZvstkea152Ne PgSYT2MMHpzBDcH1VtuY4 yOiAjMDAwMDAw W8ImeRUtYCsoJ434NIolI eS9IJGckaLwA0GuMPWzwK ylMuQ9c5U9Ms4pUrVFZWE yczwvdGQ+PHRk RYU7uHobZGstQOZecT0vJ WAdS5b9YqGgUkM9KBpgU4 TkFQFtdvxsZb49vE9kSqF fDfT0HGrmR6Yk dfH9TKEbgESbGEllXRP7I 51ae0V0AEBuWPQtZCF1iQ W6xU2akBptywhfuJDkcCz gdmVydGljYWwt ILdsD644XLOojVgcCtLub WFsZTwvdGQ+TSHwJFQ7iR ibVFpwRPMlaP9lSDLsP7m 6IlQrLjU0KUme U1AqKEIsyoqmDr99cT5aZ aZpVpB2GHspY3AjehQ0XA VknBChKQvdWEC9L57bk6X 6AQToYYSkLMF8 kDL8qT4exQsqedpooTJlm DsgdmVydGljYWwtYWxpZ2 59BOYlnBxjAdKsKAYmQX4 jeTwvdGQ+PC90 si79F7NyRoykWgc5DAOgO YK4dGO7nA4fHZIsOXtnp1 O7hEN4B8BddqNnnw6rm1p ePMNfKQbfE43l mWGzf0F9MGMhsBR2RTWuf GwvWgGjpV23Vuh+PGNvbG zur5PdSvaxn2kso9xjyHj 9IjMwJSIgdmFs oXqeFWH2x9UtDt22I71aM HdpZHRoPSIzMCUiIHZhbG ggdn4amW2tBj2+PGNvbCB 4sOU6rZ3lOiVc AhK4ZZdwA251YiZfbDCjK uzgq5uqk9gxnTh6UzXfQW BwuhTggPyrWBI1k8UqJh2 1J6TewZoew2Gy Krq4qo81qNCox5I7jEX3X 3BhZGRpbmctbGVmdDogMC 0dEOAxjommDETpbQ3uVPM dR0u7MjYdCrC9 NVveW7AqxvH4KLKtdUPaP PXcgJWHqB4qlyklb8tzmg ioOxCyUZKnZAa9SLa2PHV saWduOiBsZWZ0 FwH5SQA2jEChpE0omSxdm bdddB6dXyq+YBu3j4cjeB QqJA9lwDZ5CG24DT75tFN sv1L5bUD6B2Ut IPNggmxdduomgWZ3APUfM GIldK68Bc4jiOcsKi1aFT FvYEY3FJFpuHVnP8QzdG6 yOiAjMDAwMDAw L0EaoRXsMPheC922ILxsN hD6VPLphnBoC6XiQVXapX azSvK6k0G8Si0XNT50AO2 4NH97sEBum3U8 gOX7R8EbJZQmzvdzfvcxf EH5HQUzDOMnbV60Dk8dnF gySz4eDGSxGCY0EYNyeLP cD0GzsQ9mUwAd IMTbWQZgV7JlwCIwJIjeC 335DJprDhT3SJBpvdXbO2 XpYKOhhUgtMdX1r3H4Lv2 RPu63MW67CP38 iHBsz7Q1rYT3G4WwSQHop awtljfkkMB5EEOmVYNdvI 94Ib5wdVrySi1cBFUsUTW 9JBAuuGVqK9Yc dX8fJjKkHYBnLEZlQ0Isk UBmJJgzA538UPvxJjW6VN HomuGkF3GjSKLsbMixWjL 7i9Y1Kh3XOVue tml0W8MiNrjzdZP+PC90Y VIkXA60gPXfyHFfe1nesN q0GyEwAIEmPGG8hNktCIm rl7UzWKGhK01p bGFw (more content not included)... Normal [facility] Albumin [Mass/volume] in Ser um or PlasmaOrdered By: Sangeetha Peña on 08-12-2022 Albumin [Mass/Vol] 3.2 g/dL 3.2-5.5 [facility] Basophils Auto (Bld) [#/Vol] Ordered By: Sangeetha Peña on 08-12-2022 Basophils (Bld) [#/Vol] 0.1 10*3/uL 0.0-0.2 [facility] Basophils/100 WBC Auto (Bld) Ordered By: Sangeetha Peña on 08-12-2022 Basophils/100 WBC (Bld) 0.7 % . [facility] C reactive protein [Mass/vol ume] in Serum or PlasmaOrdered By: Sangeetha Peña on 08-12-2022 CRP [Mass/Vol] 0.5 mg/dL 0.0-1.0 [facility] Creatinine and Glomerular fi ltration rate.predicted panel (S/P/Bld)Ordered By: Sangeetha Peña on 08-12-2022 Creatinine [Mass/Vol] 0.65 mg/dL 0.44-1.03 [facility] Eosinophils Auto (Bld) [#/Vo l]Ordered By: Sangeetha Peña on 08-12-2022 Eosinophils (Bld) [#/Vol] 0.4 10*3/uL 0.0-0.45 [facility] Eosinophils/100 WBC Auto (Bl d)Ordered By: Sangeetha Peña on 08-12-2022 Eosinophils/100 WBC (Bld) 5.2 % . [facility] Erythrocyte distribution wid th Auto (RBC) [Ratio]Ordered By: Sangeetha Peña on 08-12-2022 Erythrocyte distribution width (RBC) [Ratio] 14.4 % 11.9-15.3 [facility] Erythrocyte sedimentation ra te by Photometric methodOrdered By: Dorita Niño on 08-12-2022 ESR Photometric method (d) [Velocity] 3 mm/hr 0-19 [facility] Estimated glomerular filtrat ion rate (GFR) non- AmericanOrdered By: Sangeetha Peña on 08-12-2022 GFR/1.73 sq M.predicted among non-blacks MDRD (S/P/Bld) [Vol rate/Area] > 60 mL/Min [facility] Folate [Mass/volume] in Seru m or PlasmaOrdered By: Lizzeth Malave on 08-12-2022 Folate [Mass/Vol] 15.3 ng/mL >5.9 [facility] Comment on above: Folate reference ran ge: >5.9 ng/mlThe WHO technical consultation on folate and vitamin [id number] has determined that folate concentrations lessthan 4 ng/ml are considered deficient. Globulin Calc (S) [Mass/Vol] Ordered By: Sangeetha Peña on 08-12-2022 Globulin (S) [Mass/Vol] 2.4 g/dL [facility] HCG ( test) IA.rapi d Ql (U)Ordered By: Lizzeth Malave on 08-12-2022 HCG ( test) Ql (U) Negative [facility] Hematocrit Auto (Bld) [Volum e fraction]Ordered By: Sangeetha Peña on 08-12-2022 Hematocrit (Bld) [Volume fraction] 34.6 % 34.0-46.4 [facility] Hemoglobin [Mass/volume] in BloodOrdered By: Sangeetha Peña on 08-12-2022 Hemoglobin (Bld) [Mass/Vol] 11.3 g/dL 11.8-15.4 [facility] - Chemistry and C hemistry - challengeOrdered By: Lizzeth Malave on 08-12-2022 Cobalamin (Vitamin B12) [Mass/Vol] 610 pg/mL 180-914 [facility] Magnesium [Mass/Vol] 1.9 mg/dL 1.6-2.6 [facility] - Hematology and Cell countsOrdered By: Sangeetha Peña on 08-12-2022 Nucleated RBC/100 WBC (Bld) [Ratio] 0.1 % 0-0.5 [facility] Leukocytes [#/volume] in Blo od by Automated countOrdered By: Sangeetha Peña on 08-12-2022 WBC (Bld) [#/Vol] 8.3 10*3/uL 4.5-11.0 [facility] Lymphocytes Auto (Bld) [#/Vo l]Ordered By: Sangeetha Peña on 08-12-2022 Lymphocytes (Bld) [#/Vol] 2.3 10*3/uL 1.00-4.8 [facility] Lymphocytes/100 WBC Auto (Bl d)Ordered By: Sangeetha Peña on 08-12-2022 Lymphocytes/100 WBC (Bld) 27.4 % . [facility] MCH Auto (RBC) [Entitic mass ]Ordered By: Sangeetha Peña on 08-12-2022 MCH (RBC) [Entitic mass] 32.0 pg 24.7-34.3 [facility] MCHC Auto (RBC) [Mass/Vol]Or dered By: Sangeetha Peña on 08-12-2022 MCHC (RBC) [Mass/Vol] 32.8 g/dL 32.0-35.0 [facility] MCV Auto (RBC) [Entitic vol] Ordered By: Sangeetha Peña on 08-12-2022 MCV (RBC) [Entitic vol] 97.7 fL 80-100 [facility] Monocytes Auto (Bld) [#/Vol] Ordered By: Sangeetha Peña on 08-12-2022 Monocytes (Bld) [#/Vol] 0.7 10*3/uL 0.0-0.8 [facility] Monocytes/100 WBC Auto (Bld) Ordered By: Sangeetha Peña on 08-12-2022 Monocytes/100 WBC (Bld) 8.7 % . [facility] Neutrophils Auto (Bld) [#/Vo l]Ordered By: Sangeetha Peña on 08-12-2022 Neutrophils (Bld) [#/Vol] 4.8 10*3/uL 1.8-7.7 [facility] Neutrophils/100 WBC Auto (Bl d)Ordered By: Sangeetha Peña on 08-12-2022 Neutrophils/100 WBC (Bld) 58.0 % . [facility] No Panel InformationOrdered By: Sangeetha Peña on 08-12-2022 Estimated GFR () > 60 mL/Min [facility] Comment on above: GFR estimated refere nce range: According to KDOQI guidelines, <60 ml/min/1.73m2 is sufficient to diagnose a patient with chronic kidney disease. Pharmacy Creatinine Clearance (Chem 140.31 [facility] Platelet mean volume Auto (B ld) [Entitic vol]Ordered By: Sangeetha Peña on 08-12-2022 Platelet mean volume (Bld) [Entitic vol] 10.2 fL 6.3-10.7 [facility] Platelets Auto (Bld) [#/Vol] Ordered By: Sangeetha Peña on 08-12-2022 Platelets (Bld) [#/Vol] 263 10*3/uL 150-450 [facility] Protein [Mass/volume] in Ser um or PlasmaOrdered By: Sangeetha Peña on 08-12-2022 Protein [Mass/Vol] 5.6 g/dL 6.1-7.9 [facility] RBC Auto (Bld) [#/Vol]Ordere d By: Sangeetha Peña on 08-12-2022 RBC (Bld) [#/Vol] 3.54 10*6/uL 3.60-5.00 [facility] Serum or plasma alanine alberto otransferase measurement without P-5'-P (enzymatic activiOrdered By: Sangeetha Peña on 08-12-2022 ALT No additional P-5'-P [Catalytic activity/Vol] 22 U/L 10-60 [facility] Serum or plasma albumin/glob ulin mass ratioOrdered By: Sangeetha Peña on 08-12-2022 Albumin/Globulin [Mass ratio] 1.3 {ratio} [facility] Serum or plasma alkaline marquez sphatase measurement (enzymatic activity/volume)Ordered By: Sangeetha Peña on 08-12-2022 ALP [Catalytic activity/Vol] 54 U/L 32-92 [facility] Serum or plasma anion gap de terminationOrdered By: Sangeetha Peña on 08-12-2022 Anion gap [Moles/Vol] 10.6 mmol/L 6.0-15.0 [facility] Serum or plasma aspartate am inotransferase measurement (enzymatic activity/volume)Ordered By: Sangeetha Peña on 08-12-2022 AST [Catalytic activity/Vol] 20 U/L 10-42 [facility] Serum or plasma calcium audie urement (mass/volume)Ordered By: Sangeetha Peña on 08-12-2022 Calcium [Mass/Vol] 8.8 mg/dL 8.2-10.2 [facility] Serum or plasma chloride nimisha surement (moles/volume)Ordered By: Sangeetha Peña on 08-12-2022 Chloride [Moles/Vol] 105 mmol/L 95-114 [facility] Serum or plasma glucose audie urement (mass/volume)Ordered By: Sangeetha Peña on 08-12-2022 Glucose [Mass/Vol] 85 mg/dL 70-100 [facility] Comment on above: ADA recommended refe rence rangeRandom Glucose Reference Range is dependent on time and content of last meal. Glucose of more than 200 mg/dL in a nonstressed, ambulatory subject supports the diagnosis of Diabetes Mellitus. Serum or plasma potassium me asurement (moles/volume)Ordered By: Sangeetha Peña on 08-12-2022 Potassium [Moles/Vol] 4.2 mmol/L 3.5-5.1 [facility] Serum or plasma sodium measu rement (moles/volume)Ordered By: Sangeetha Peña on 08-12-2022 Sodium [Moles/Vol] 140 mmol/L 136-146 [facility] Serum or plasma total biliru bin measurement (mass/volume)Ordered By: Sangeetha Peña on 08-12-2022 Bilirubin [Mass/Vol] 0.5 mg/dL 0.3-1.2 [facility] Serum or plasma total carbon dioxide measurement (moles/volume)Ordered By: Sangeetha Peña on 08-12-2022 CO2 [Moles/Vol] 28.6 mmol/L 22.0-30.0 [facility] Serum or plasma urea nitroge n measurement (mass/volume)Ordered By: Sangeetha Peña on 08-12-2022 Urea nitrogen [Mass/Vol] 7 mg/dL 9- [facility] TSH DL <= 0.005 mIU/L QnOrde red By: Lizzeth Malave on 08-12-2022 TSH Qn 1.79 m[IU]/L 0.45-5.33 [facility] Troponin I.cardiac [Mass/vol ume] in Serum or Plasma by High sensitivity methodOrdered By: Lizzeth Malave on 08-12-2022 Troponin I.cardiac High sensitivity method [Mass/Vol] < 3 pg/mL 0-15 [facility] CBC AUTO DIFFon 08-11-2022 BASO # 0.1 103/ul Normal 0.0-0.1 [facility] Comment on above: Performed By: #### C MP JENNIE, LIPA #### [facility] [address] [address] [address] Manuel Sandhu Basophils/100 WBC (Bld) 0.5 % Normal 0.2-2.0 [facility] Comment on above: Performed By: #### C MP, JENNIE, LIPA #### [facility] [address] [address] [address] Manuel Sandhu EO # 0.4 103/ul Normal 0.0-0.7 [facility] Comment on above: Performed By: #### C JENNIE PATRICK LIPA #### [facility] [address] [place] [address] Dr. Manuel Sandhu Eosinophils/100 WBC (Bld) 2.4 % Normal 0.9-7.0 [facility] Comment on above: Performed By: #### C JENNIE PATRICK LIPA #### [facility] [address] [place] [address] Dr. Manuel Sandhu Erythrocyte distribution width (RBC) [Ratio] 14.1 % Normal 11.0-15.0 [facility] Comment on above: Performed By: #### C JENNIE PATRICK LIPA #### [facility] [address] [place] [address] Dr. Manuel Sandhu Hematocrit (Bld) [Volume fraction] 39.4 % Normal 36.0-48.0 [facility] Comment on above: Performed By: #### C JENNIE PATRICK LIPA #### [facility] [address] [place] [address] Dr. Manuel Sandhu Hemoglobin (Bld) [Mass/Vol] 13.3 g/dL Normal 12.0-16.0 [facility] Comment on above: Performed By: #### C JENNIE PATRICK LIPA #### [facility] [address] [place] [address] Dr. Manuel Sandhu IG # 0.07 10e3/ul Critically high 0.00-0.03 [facility] Comment on above: Performed By: #### C JENNIE PATRICK LIPA #### [facility] [address] [place] [address] Dr. Manuel Sandhu IG % 0.5 % Normal 0.0-0.5 [facility] Comment on above: Performed By: #### C JENNIE PATRICK LIPA #### [facility] [address] [place] [address] Dr. Manuel Sandhu LYMPH # 3.6 103/ul Normal 1.2-3.8 [facility] Comment on above: Performed By: #### C JENNIE PATRICK LIPA #### [facility] [address] [place] [address] Dr. Manuel Sandhu Lymphocytes/100 WBC (Bld) 23.5 % Normal 20.5-60.0 [facility] Comment on above: Performed By: #### C MP, JENNIE, LIPA #### [facility] [address] [place] [address] Dr. Manuel Sandhu MANUAL DIFF REQ NO Normal [facility] Comment on above: Performed By: #### C MP, JENNIE, LIPA #### [facility] [address] [place] [address] Dr. Manuel Sandhu MCH (RBC) [Entitic mass] 32.1 pg Normal 26.7-34.0 [facility] Comment on above: Performed By: #### C MP, JENNIE, LIPA #### [facility] [address] [place] [address] Dr. Manuel Sandhu MCHC (RBC) [Mass/Vol] 33.8 g/dL Normal 29.9-35.2 [facility] Comment on above: Performed By: #### C MP, JENNIE, LIPA #### [facility] [address] [place] [address] Dr. Manuel Sandhu MCV (RBC) [Entitic vol] 95.2 fL Normal 81.0-99.0 [facility] Comment on above: Performed By: #### C MP, JENNIE, LIPA #### [facility] [address] [place] [address] Dr. Manuel Sandhu MONO # 0.9 103/ul Critically high 0.3-0.8 [facility] Comment on above: Performed By: #### C MP, JENNIE, LIPA #### [facility] [address] [place] [address] Dr. Manuel Sandhu Monocytes/100 WBC (Bld) 5.8 % Normal 1.7-12.0 [facility] Comment on above: Performed By: #### C MP, JENNIE, LIPA #### [facility] [address] [place] [address] Dr. Manuel Sandhu NEUT # 10.3 103/ul Critically high 1.4-6.5 [facility] Comment on above: Performed By: #### C JENNIE PATRICK LIPA #### [facility] [address] [address] [address] Manuel Sandhu Neutrophils/100 WBC (Bld) 67.3 % Normal 43.0-75.0 [facility] Comment on above: Performed By: #### C JENNIE PATRICK LIPA #### [facility] [address] [address] [address] Manuel Sandhu Platelet mean volume (Bld) [Entitic vol] 11.4 fL Normal 9.5-13.5 [facility] Comment on above: Performed By: #### C JENNIE PATRICK LIPA #### [facility] [address] [address] [address] Manuel Sandhu PLT 364 103/ul Normal 150-450 [facility] Comment on above: Performed By: #### C JENNIE PATRICK LIPA #### [facility] [address] [address] [address] Manuel Sandhu RBC 4.14 106/ul Critically low 4.20-5.40 [facility] Comment on above: Performed By: #### C JENNIE PATRICK LIPA #### [facility] [address] [address] [address] Manuel Sandhu WBC 15.3 103/ul Critically high 4.0-11.0 [facility] Comment on above: Performed By: #### C JENNIE PATRICK LIPA #### [facility] [facility] [address] [address] [address] STROKE HEAD WOon 08-11-[address] STROKE HEAD WO INDICATION: 31 years old; Female. Visual disturbance. TECHNIQUE: CT Head (ax/cor/sag reformats). Ionizing radiation dose reduced via iterative reconstruction/FBP blend and body size kV/mA adjustment. Comparison: Head CT dated 07/12/2021. FINDINGS: POSTOPERATIVE CHANGES: None. BRAIN PARENCHYMA: No hemorrhage, mass or acute infarct. Normal jimenez/white differentiation. VENTRICLES/EXTRA-AXIA L SPACES: Multiple for patient's age. SINUSES/MASTOIDS: Visualized sinuses are clear. Mastoids and middle ears are clear. MSK: No displaced or depressed calvarial fracture is noted. OTHER: No hyperdense intraluminal thrombus is seen. Not expanded partially empty sella. IMPRESSION: 1. No acute intracranial abnormality. No hemorrhage or mass effect. 2. Non expanded partially empty sella. This is unchanged as compared to the prior examination. There is no evidence of sellar expansion or enlargement of the optic nerve sheaths. A telephone call regarding the findings in examination was made to and acknowledged by Jackie, who is caring for this patient, at 3:20 PM on 08/11/2022. Electronically authenticated by: YOLI MCKEON Date: 2022-08-11 15:21 Normal [facility] ER URINE PROFILEon 2 Bilirubin Ql (U) Negative Normal NEGATIVE [facility] Comment on above: Performed By: #### U MICRO, ERUR #### [facility] [address] [place] [address] Dr. Manuel Sandhu Clarity (U) CLEAR Normal CLEAR [facility] Comment on above: Performed By: #### U MICRO, ERUR #### [facility] [address] [place] [address] Dr. Manuel Sandhu Color (U) LT. YELLOW Normal YELLOW [facility] Comment on above: Performed By: #### U MICRO, ERUR #### [facility] [address] [place] [address] Dr. Manuel MCDONALDD A micrscopic examination will be performed if indicated. Normal [facility] Comment on above: Performed By: #### U MICRO, ERUR #### [facility] [address] [place] [address] Dr. Manuel Sandhu Glucose Ql (U) Negative Normal NEGATIVE [facility] Comment on above: Performed By: #### U MICRO, ERUR #### [facility] [address] [place] [address] Dr. Manuel Sandhu Hemoglobin Ql (U) Negative Normal NEGATIVE [facility] Comment on above: Performed By: #### U MICRO, ERUR #### [facility] [address] [place] [address] Dr. Manuel Sandhu Ketones Ql (U) Negative Normal NEGATIVE [facility] Comment on above: Performed By: #### U MICRO, ERUR #### [facility] [address] [address] [address] Manuel Sandhu LEUKOCYTES Negative Normal NEGATIVE [facility] Comment on above: Performed By: #### U MICRO, ERUR #### [facility] [address] [address] [address] Manuel Sandhu Nitrite Ql (U) Negative Normal NEGATIVE [facility] Comment on above: Performed By: #### U MICRO, ERUR #### [facility] [address] [address] [address] Manuel Sandhu pH (U) 7.0 [pH] Normal 5-9 [facility] Comment on above: Performed By: #### U MICRO, ERUR #### [facility] [address] [place] [address] Dr. Manuel Sandhu SPEC GRAVITY <=1.005 Abnormal 1.005-<=1.[address] [place] [address] Comment on above: Performed By: #### U MICRO, ERUR #### [facility] [address] [address] [address] Manuel Snadhu UA PROTEIN Negative Normal NEGATIVE/ TRACE [facility] Comment on above: Performed By: #### U MICRO, ERUR #### [facility] [address] [place] [address] Dr. Manuel Sandhu UR MICRO IND NOT INDICATED Normal [facility] Comment on above: Performed By: #### U MICRO, ERUR #### [facility] [address] [address] [address] Manuel Sandhu Urobilinogen Qn (U) 0.2 {Lucila'U}/dL Normal 0.2 - 1. 0 [facility] Comment on above: Performed By: #### U MICRO, ERUR #### [facility] [address] [place] [address] Dr. Manuel Sandhu LACTATE/LACTIC ACIDon 2021 Lactate [Moles/Vol] 1.5 mmol/L Normal 0.4-1.9 [facility] Comment on above: Performed By: #### I NFLUAB #### [facility] [address] [place] [address] Dr. Manuel Sandhu LIPASEon 08-11-2022 Lipase [Catalytic activity/Vol] 84.0 U/L Normal 73.0-393.0 [facility] Comment on above: Performed By: #### C MP, JENNIE, LIPA #### [facility] [address] [place] [address] Dr. Manuel Sandhu URon 08-11-2022 , QUAL Negative Normal NEGATIVE [facility] Comment on above: Performed By: #### U MICRO, ERUR #### [facility] [address] [place] [address] Dr. Manuel Sandhu PROF 14(COMP METB)on 022 Albumin [Mass/Vol] 4.3 g/dL Normal 3.4-5.0 [facility] Comment on above: Performed By: #### C MP, JENNIE, LIPA #### [facility] [address] [place] [address] Dr. Manuel Sandhu Albumin/Globulin [Mass ratio] 1.1 {ratio} Normal [facility] Comment on above: Performed By: #### C MP, JENNIE, LIPA #### [facility] [address] [place] [address] Dr. Manuel Sandhu ALP [Catalytic activity/Vol] 87 U/L Normal 46-116 [facility] Comment on above: Performed By: #### C MP, JENNIE, LIPA #### [facility] [address] [place] [address] Dr. Manuel Sandhu ALT [Catalytic activity/Vol] 32 U/L Normal 14-59 [facility] Comment on above: Performed By: #### C MP, JENNIE, LIPA #### [facility] [address] [place] [address] Dr. Manuel Sandhu Anion gap [Moles/Vol] 12.7 mmol/L Normal [facility] Comment on above: Performed By: #### C MP, JENNIE, LIPA #### [facility] [address] [address] [address] Manuel Sandhu AST [Catalytic activity/Vol] 24 U/L Normal 15-37 [facility] Comment on above: Performed By: #### C MP, JENNIE, LIPA #### [facility] [address] [address] [address] Manuel Sandhu Bilirubin [Mass/Vol] 0.3 mg/dL Normal 0.2-1.0 [facility] Comment on above: Performed By: #### C MP, JENNIE, LIPA #### [facility] [address] [address] [address] Manuel Sandhu Calcium [Mass/Vol] 9.4 mg/dL Normal 8.5-10.1 [facility] Comment on above: Performed By: #### C MP, JENNIE, LIPA #### [facility] [address] [place] [address] Dr. Manuel Sandhu Chloride [Moles/Vol] 100 mmol/L Normal 98-107 [facility] Comment on above: Performed By: #### C MP, JENNIE, LIPA #### [facility] [address] [address] [address] Manuel Sandhu CO2 [Moles/Vol] 27.7 mmol/L Normal 21.0-32.0 [facility] Comment on above: Performed By: #### C MP, JENNIE, LIPA #### [facility] [address] [address] [address] Manuel Sandhu Creatinine [Mass/Vol] 0.71 mg/dL Normal 0.55-1.02 [facility] Comment on above: Performed By: #### C MP, JENNIE, LIPA #### [facility] [address] [address] [address] Manuel Sandhu EGFR-AF EQUATORIAL GUINEAN >60 Normal >=60 [facility] Comment on above: Performed By: #### C MP, JENNIE, LIPA #### [facility] [address] [address] [address] Manuel Sandhu EGFR-NON AF EQUATORIAL GUINEAN >60 Normal >=60 [facility] Comment on above: Performed By: #### C MP, JENNIE, LIPA #### [facility] [address] [address] [address] Manuel Sandhu Globulin (S) [Mass/Vol] 3.9 g/dL Normal [facility] Comment on above: Performed By: #### C MP, JENNIE, LIPA #### [facility] [address] [address] [address] Manuel Sandhu Glucose [Mass/Vol] 109 mg/dL Critically high 74-106 [facility] Comment on above: Performed By: #### C MP JENNIE, LIPA #### [facility] [address] [address] [address] Manuel Sandhu Potassium [Moles/Vol] 3.4 mmol/L Critically low 3.5-5.1 [facility] Comment on above: Performed By: #### C MP JENNIE, LIPA #### [facility] [address] [place] [address] Dr. Manuel Sandhu Protein [Mass/Vol] 8.2 g/dL Normal 6.4-8.2 [facility] Comment on above: Performed By: #### C CELINA JENNIE, LIPA #### [facility] [address] [place] [address] Dr. Manuel Sandhu Sodium [Moles/Vol] 137 mmol/L Normal 136-145 [facility] Comment on above: Performed By: #### C MP, JENNIE, LIPA #### [facility] [address] [place] [address] Dr. Manuel Sandhu Urea nitrogen [Mass/Vol] 10.0 mg/dL Normal 7.0-18.0 [facility] Comment on above: Performed By: #### C MP JENNIE, LIPA #### [facility] [address] [place] [address] Dr. Manuel Sandhu Urea nitrogen/Creatinine [Mass ratio] 14.1 mg/mg Normal [facility] Comment on above: Performed By: #### C MP, JENNIE, LIPA #### [facility] [address] [place] [address] Dr. Manuel Sandhu PROTIMEon 08-11-2022 INR Coag (PPP) [Relative time] 0.96 {INR} Normal [facility] Comment on above: Performed By: #### I NFLUAB #### [facility] [address] [place] [address] Dr. Manuel Sandhu INR GUIDELINES SEE BELOW Normal [facility] Comment on above: Result Comment: CHUY RED INR: 2.0 - 3.0 CONDITIONS NOT LISTED BELOW 2.5 - 3.5 FOR PROSTHETIC HEART VALVE REPLACEMENT 2.5 - 3.5 RECURRENT THROMBOSIS Performed By: #### I NFLUAB #### [facility] [address] [place] [address] Dr. Manuel Sandhu PT Coag (PPP) [Time] 10.4 s Normal 9.0-11.6 [facility] Comment on above: Performed By: #### I NFLUAB #### [facility] [address] [place] [address] Dr. Manuel Sandhu PTTon 08-11-2022 aPTT Coag (Bld) [Time] 25.3 s Normal 22.3-36.2 [facility] Comment on above: Performed By: #### I NFLUAB #### [facility] [address] [place] [address] Dr. Manuel Sandhu TROPONIN, HIGH SENSITIVITYon 08-11-2022 HSTROP 4.5 pg/mL Normal 4.0-51.3 [facility] Comment on above: Result Comment: CUT- OFF POINTS HAVE BEEN ESTABLISHED BASED ON THE FOURTH UNIVERSAL DEFINITIONS OF MYOCARDIAL INFARCTION. THE UPPER REFERENCE LIMIT (URL) OF TROPONIN, DEFINED THE 99TH PERCENTILE OF cTnI DISTRIBUTION IN A REFERENCE POPULATION, HAS BEEN CONFIRMED THE DECISION THRESHOLD FOR ID DIAGNOSIS. Performed By: #### C JENNIE PATRICK LIPA #### [facility] [address] [place] [address] Dr. Manuel Sandhu TSHon 08-11-2022 TSH 1.778 uIU/mL Normal 0.358-3.740 [facility] Comment on above: Performed By: #### C JENNIE PATRICK LIPA #### [facility] [address] [place], [place] [address] Dr. Manuel Sandhu Auto Diffon 08-08-2022 Basophils/100 WBC (Bld) 0.5 % Normal 0.0-2.0 [facility] Comment on above: Order Comment: Order Added by Discern Expert. Performed By: #### 1 [id number], 6101587, 1132469, 7260729, 71637618, 9900391 #### [facility] [address] [place] [address] Basophils/Leukocytes Auto (Bld) [Pure # fraction] 0.1 E9/L Normal 0.0-0.2 [facility] Comment on above: Order Comment: Order Added by Discern Expert. Performed By: #### 1 [id number], 8730144, 0805617, 5353856, 88579015, 4629074 #### [facility] [address] [place] [address] Eosinophils/100 WBC (Bld) 2.8 % Normal 0.0-8.0 [facility] Comment on above: Order Comment: Order Added by Discern Expert. Performed By: #### 1 3009049, 8042390, 8634762, 0234792, 46080041, 7366006 #### [facility] [address] [place] [address] Eosinophils/Leukocytes Auto (Bld) [Pure # fraction] 0.3 E9/L Normal 0.0-0.5 [facility] Comment on above: Order Comment: Order Added by Discern Expert. Performed By: #### 1 5742036, 0715192, 4672476, 6224974, 27265556, 4639025 #### [facility] [address] [place] [address] Lymphocytes/100 WBC (Bld) 15.7 % Normal 14.0-50.0 [facility] Comment on above: Order Comment: Order Added by Discern Expert. Performed By: #### 1 2028588, 1392289, 8744222, 4120746, 74188008, 8582403 #### [facility] [address] [place] [address] Lymphocytes/Leukocytes Auto (Bld) [Pure # fraction] 1.7 E9/L Normal 1.0-4.0 [facility] Comment on above: Order Comment: Order Added by Discern Expert. Performed By: #### 1 2783020, 6035668, 4614634, 2138097, 68040607, 9650610 #### [facility] [address] [place] [address] Monocytes/100 WBC (Bld) 6.2 % Normal 4.0-14.0 [facility] Comment on above: Order Comment: Order Added by Discern Expert. Performed By: #### 1 4205364, 6618124, 6648570, 5783567, 72864461, 2555187 #### [facility] [address] [place] [address] Monocytes/Leukocytes Auto (Bld) [Pure # fraction] 0.7 E9/L Normal 0.2-1.0 [facility] Comment on above: Order Comment: Order Added by Discern Expert. Performed By: #### 1 2505641, 5292570, 5795500, 3463370, 19711600, 8589723 #### [facility] [address] [place] [address] Neutrophils/100 WBC (Bld) 74.8 % Normal 36.0-75.0 [facility] Comment on above: Order Comment: Order Added by Discern Expert. Performed By: #### 1 4394386, 9566276, 9441267, 6606826, 58182741, 9162952 #### [facility] [address] [place] [address] Neutrophils/Leukocytes Auto (Bld) [Pure # fraction] 8.3 E9/L High 2.0-7.5 [facility] Comment on above: Order Comment: Order Added by Discern Expert. Performed By: #### 1 9488715, 6252729, 4134419, 0629506, 83166463, 3947383 #### [facility] [address] [place] [address] B hCG Qualon 08-08-2022 Beta hCG Ql Negative Normal [facility] Comment on above: Performed By: #### 1 5231553, 1291237, 7316257, 6814336, 92065248, 1368935 #### [facility] [address] [place] [address] BMPon 08-08-2022 Creatinine [Mass/Vol] 0.6 mg/dL Normal 0.5-1.3 [facility] Comment on above: Performed By: #### 1 8368999, 3676000, 9941195, 6449047, 70524965, 4526671 #### [facility] [address] [place] [address] Urea nitrogen [Mass/Vol] 13 mg/dL Normal 5-21 [facility] Comment on above: Performed By: #### 1 6938839, 5493739, 7250665, 9829148, 34964539, 2072204 #### [facility] [address] [place] [address] Urea nitrogen/Creatinine [Mass ratio] 22 No Units High 10-20 [facility] Comment on above: Performed By: #### 1 7460716, 6474632, 5432903, 4440143, 97910883, 4193284 #### [facility] [address] [place] [address] Anion gap [Moles/Vol] 11 mmol/L Normal 6-16 [facility] Comment on above: Performed By: #### 1 3284500, 9920954, 3498397, 4444874, 19883858, 9447594 #### [facility] [address] [place] [address] Calcium [Mass/Vol] 9.0 mg/dL Normal 8.9-11.1 [facility] Comment on above: Performed By: #### 1 6469585, 2343978, 4938806, 1944966, 23603312, 6212138 #### [facility] [address] [place] [address] Chloride [Moles/Vol] 105 mmol/L Normal 101-111 Replaced By [facility] Comment on above: Performed By: #### 1 7325790, 6729443, 3388165, 4273219, 55739412, 8558314 #### [facility] [address] [place] [address] CO2 [Moles/Vol] 25 mmol/L Normal 21-31 [facility] Comment on above: Performed By: #### 1 4287232, 3638496, 1900387, 2739176, 89917905, 9298704 #### [facility] [address] [place] [address] Glucose [Mass/Vol] 84 mg/dL Normal 55-199 [facility] Comment on above: Result Comment: If t his glucose result represents a fasting glucose, interpretation should refer to the following reference range: 55-99 mg/dL Performed By: #### 1 3599719, 7943187, 1541282, 6540721, 86265055, 7604670 #### [facility] [address] [place] [address] Potassium [Moles/Vol] 4.2 mmol/L Normal 3.5-5.3 [facility] Comment on above: Performed By: #### 1 8859653, 9637721, 5857119, 7595270, 00891526, 2378512 #### [facility] [address] [place] [address] Sodium [Moles/Vol] 137 mmol/L Normal 135-145 [facility] Comment on above: Performed By: #### 1 1591072, 3114105, 7985782, 8925722, 63136868, 7208472 #### [facility] [address] [place] [address] CBC w/ Auto Diffon 2 Erythrocyte distribution width (RBC) [Ratio] 14.1 % Normal 10.9-14.2 [facility] Comment on above: Performed By: #### 1 6080900, 3280707, 5981827, 1712215, 59233670, 6512057 #### [facility] [address] [place] [address] Hematocrit (Bld) [Volume fraction] 34.9 % Normal 34.0-46.0 [facility] Comment on above: Performed By: #### 1 2354201, 8360730, 0919168, 9480297, 11563295, 4577608 #### [facility] [address] [place] [address] Hemoglobin (Bld) [Mass/Vol] 11.9 g/dL Low 12.0-16.0 [facility] Comment on above: Performed By: #### 1 0520274, 7281685, 8641073, 1528749, 13094336, 5173330 #### [facility] [address] [place] [address] MCH (RBC) [Entitic mass] 32.2 pg Normal 27.0-34.0 [facility] Comment on above: Performed By: #### 1 7445382, 4979281, 8472327, 9699521, 75794401, 2947966 #### [facility] [address] [place] [address] MCHC (RBC) [Mass/Vol] 34.1 g/dL Normal 31.4-36.0 [facility] Comment on above: Performed By: #### 1 0409848, 3572055, 9729808, 5392484, 12694949, 7145112 #### [facility] [address] [place] [address] MCV (RBC) [Entitic vol] 94.5 fL Normal 80.0-100.0 [facility] Comment on above: Performed By: #### 1 5101652, 6281084, 2674747, 4411196, 98327143, 9068880 #### [facility] [address] [place] [address] Platelet mean volume (Bld) [Entitic vol] 9.0 fL Normal 6.4-10.8 [facility] Comment on above: Performed By: #### 1 0467382, 8063377, 2036082, 0884650, 60220054, 3979493 #### [facility] [address] [place] [address] Platelets (Bld) [#/Vol] 288.0 E9/L Normal 150.0-500.0 [facility] Comment on above: Performed By: #### 1 2300795, 0515018, 6018555, 9320624, 70550314, 3117274 #### [facility] [address] [place] [address] RBC (Bld) [#/Vol] 3.7 E12/L Low 4.3-5.9 [facility] Comment on above: Performed By: #### 1 4819138, 8800824, 5599043, 6229117, 47033930, 8945419 #### [facility] [address] [place] [address] WBC corrected for nucl RBC Auto (Bld) [#/Vol] 11.1 E9/L High 4.0-11.0 [facility] Comment on above: Performed By: #### 1 1744544, 9151829, 3137758, 7758465, 08418405, 5685929 #### [facility] [address] [place] [address] CHEMISTRYOrdered By: SYSTEM SYSTEM on 08-08-2022 Anion gap [Moles/Vol] 11 mmol/L Normal 6 - 16 mEq/L [facility] Remisol Calcium [Mass/Vol] 9.0 mg/dL Normal 8.9 - 11. 1 mg/dL [facility] Remisol Chloride [Moles/Vol] 105 mmol/L Normal 101 - 1 11 mmol/L [facility] Remisol CO2 [Moles/Vol] 25 mmol/L Normal 21 - 31 mmol/L [facility] Remisol Creatinine [Mass/Vol] 0.6 mg/dL Normal 0.5 - 1.3 mg/dL [facility] Remisol GFR/1.73 sq M.predicted among blacks MDRD (S/P/Bld) [Vol rate/Area] mL/min/1.73 m2 Normal >=59mL/min/ 1.73 m2 [facility] Chem S GFR/1.73 sq M.predicted among non-blacks MDRD (S/P/Bld) [Vol rate/Area] mL/min/1.73 m2 Normal >=59mL/min/ 1.73 m2 [facility] Chem S Glucose [Mass/Vol] 84 mg/dL Normal 55 - 199 mg/dL [facility] Remisol Potassium [Moles/Vol] 4.2 mmol/L Normal 3.5 - 5.3 mmol/L [facility] Remisol Sodium [Moles/Vol] 137 mmol/L Normal 135 - 145 mmol/L [facility] Remisol Urea nitrogen [Mass/Vol] 13 mg/dL Normal 5 - 21 mg/dL [facility] Remisol Urea nitrogen/Creatinine [Mass ratio] 22 mg/mg High 10 - 20 [facility] Remisol CHEMISTRYOrdered By: Alie ROP User on 08-08-2022 Glucose [Mass/Vol] 98 mg/dL Normal 55 - 99 mg/dL [facility] POC Subsection POC Device SN [id number] Invalid Interpretation Code [facility] POC Subsection POC User ID [id number] Invalid Interpretation Code [facility] POC Subsection POC Username MOLLY RALPH Invalid Interpretation Code [facility] POC Subsection CT Head or Brain w/o Contras ton 08-08-2022 CT Head or Brain w/o Contrast Exam Date/Time: 08/08/2022 10:26 EST Reason for Exam: headache;Other (please specify) Report IMPRESSION: NO ACUTE INTRACRANIAL PROCESS. NEAR TOTAL EMPTY SELLA TURCICA IS A NONSPECIFIC FINDING THAT CAN BE SEEN WITH IDIOPATHIC INTRACRANIAL HYPERTENSION. EXAMINATION: CT of the brain without contrast HISTORY: Headache. Dizziness. COMPARISON: None available TECHNIQUE: Multiple axial images were obtained of the brain from the skull base through the vertex. Multiplanar reformats were obtained. FINDINGS: Brain volume is age appropriate. Ventricular morphology is within normal limits. Jimenez-white matter differentiation is preserved. Tiny size of the pituitary gland results in a near total empty sella turcica. No acute hemorrhage or abnormal extra-axial fluid collection. Basal cisterns are patent. No mass effect or midline shift. The visualized paranasal sinuses and mastoid air cells are clear. Calvarium is intact. All CT scans at this facility use dose modulation, iterative reconstruction, and/or weight based dosing when appropriate to reduce radiation dose to as low as reasonably achievable. FINAL REPORT Dictated: 08/08/2022 10:46 am Rahul Faith DO Signed (Electronic Signature): 08/08/2022 10:46 am Signed by: Rahul Faith DO Transcribed by: MARCO Technologist: COLLEEN Normal [facility] Capillary Glucose POCon 07-16 Glucose [Mass/Vol] 98 mg/dL Normal 55-99 [facility] Comment on above: Performed By: #### 1 [id number], 3941768, 6557301, 5916016, 52583390, 1241395 #### [facility] [address] [place] [address] Consent for Treatmenton 07-16 Consent for Treatment [id number] .[id number]:127 Normal [facility] Discharge Instructionson Discharge Instructions [id number]# 1.00CD:127 Normal [facility] ED Clinical Summaryon 2021 ED Clinical Summary [address] [address] ED Clinical Summary Person Information Name: SHAZIA CHOU [facility] Age: 31 Years : 1990 Sex: Female Language: Djiboutian PCP: Aimee Walker CNP Marital Status: Phone: [phone] Visit Id: Visit Reason: Vision changes; Dizziness; Hypertension; Medical screening exam; HIGH BLOOD PRESSURE Speciality: Acuity: 3 Enc Type: Emergency Med Service: Emergency Arrival: 08/08/2022 09:03:37 Discharge: 08/08/2022 11:54:09 LOS: 000 02:51 Checkin: 08/08/2022 09:03:37 Checkout: 08/08/2022 11:54:09 Dispo Type: Home (Routine DC) EVENTS: Event Name Event Status Request Date/Time Start Date/Time Complete Date/Time Arrive Complete 08/08/2022 09:03:37 08/08/2022 09:03:37 08/08/2022 09:03:37 Document Home Meds Request 08/08/2022 09:03:37 Triage Complete 08/08/2022 09:03:37 08/08/2022 09:11:31 08/08/2022 09:11:31 Bed Assign Complete 08/08/2022 09:05:23 08/08/2022 09:05:23 08/08/2022 09:05:23 Dr Exam Complete 08/08/2022 09:05:23 08/08/2022 09:24:18 08/08/2022 09:24:18 RN Exam Complete 08/08/2022 09:05:23 08/08/2022 09:17:05 08/08/2022 09:17:05 EKG Complete 08/08/2022 09:12:47 08/08/2022 09:36:40 Pending Labs Complete 08/08/2022 09:15:46 08/08/2022 09:15:46 08/08/2022 09:15:47 Registration Complete 08/08/2022 09:24:18 08/08/2022 09:29:50 08/08/2022 09:29:50 Reg Complete Request 08/08/2022 09:29:50 Reg Bed Request Complete 08/08/2022 09:29:50 08/08/2022 09:29:50 08/08/2022 09:29:50 CT Complete 08/08/2022 09:42:11 08/08/2022 10:05:44 08/08/2022 10:26:39 Pending Labs Complete 08/08/2022 09:43:05 08/08/2022 10:26:52 Lab Complete 08/08/2022 09:43:05 08/08/2022 10:16:35 Urine Collect Complete 08/08/2022 09:43:05 08/08/2022 10:16:35 Pending Labs Complete 08/08/2022 09:43:40 08/08/2022 10:29:56 Swab Complete 08/08/2022 09:43:40 08/08/2022 10:27:03 Lab Complete 08/08/2022 09:43:40 08/08/2022 10:29:56 Pending Labs Complete 08/08/2022 10:00:32 08/08/2022 10:00:32 08/08/2022 10:15:46 Lab Complete 08/08/2022 10:00:32 08/08/2022 10:00:32 08/08/2022 10:15:46 Pending Labs Complete 08/08/2022 10:07:25 08/08/2022 10:07:25 08/08/2022 10:07:31 Lab Complete 08/08/2022 10:07:25 08/08/2022 10:07:25 08/08/2022 10:07:31 Meds Admin Request 08/08/2022 11:37:19 Discharge Complete 08/08/2022 11:38:39 08/08/2022 11:54:16 08/08/2022 11:54:16 Transfer Complete 08/08/2022 11:54:16 08/08/2022 11:54:16 08/08/2022 11:54:16 ADDRESS: [address] [place] [phone] PHYS DOC NOTES: MEDICAL INFORMATION: Prescriptions Given: New Medications [id number], [address] [place], [place] [id number], [phone] APAP/butalbital/caffe ine (APAP/butalbital/caff eine 300 mg-50 mg-40 mg oral capsule) 1 Capsules By Mouth every 4 hours as needed for headache. Refills: 0. ondansetron (Zofran ODT 4 mg Tab-Dis) 1 Tablets By Mouth every 8 hours as needed Nausea/Vomiting. Refills: 0. Medications to Continue with No Changes Other Medications acetaminophen (Tylenol) 325 Milligram By Mouth every 4 hours as needed as needed for pain. brexpiprazole (Rexulti 3 mg oral tablet) 1 Tablets By Mouth every day. calcium citrate (calcium (as calcium citrate) 200 mg oral tablet) By Mouth 2 times a day. duloxetine (Cymbalta) 60 Milligram By Mouth 2 times a day. per dr chaparro. multivitamin with minerals (Multi-Day Plus Minerals) By Mouth every day. naproxen (naproxen 500 mg Tab) 1 Tablets By Mouth 2 times a day as needed for pain. Refills: 0. nitrofurantoin (nitrofurantoin macrocrystals-monohyd rate 100 mg Cap) TAKE 1 CAPSULE BY MOUTH TWICE A DAY FOR 5 DAYS WITH FOOD. Non-Formulary Medication (Magic Mouthwash) 5 Milliliter By Mouth 3 times a day for 2 Weeks. Swish and swallow. 30 mL Nystatin + 210 mL Diphenhydramine + #5 tabs 20 mg hydrocortisone + Doxycycline 1,000 mg (tabs/cap).. Refills: 0. pantoprazole (Pantoprazole [address] Tab) topiramate (Topamax 100 mg Tab) 1 Tablets By Mouth every day. varenicline (varenicline 0.5 mg oral tablet) Step 1: Take 1 tablet daily for 3 days. Then 1 tablet twice daily for 4 days. Start 1 week before planned quit date. Stop smoking 8-35 days after starting medicine if quit date unplanned.. Refills: 0. varenicline (varenicline 1 mg oral tablet) 1 Tablets By Mouth 2 times a day. Step 2: Start on day 8. Take 1 tablet twice daily. Take with food and full glass of water. May continue additional 12 weeks if not successful.. Refills: 0. PATIENT EDUCATION INFORMATION: Instructions: Idiopathic Intracranial Hypertension Follow up: With: Address: When: Kenrick Lee [address], [place] [address] [facility] (1) In 3 days 08/11/2022 Comments: Follow-up with Dr. Lee to discuss your headaches. Seek immediate medical attention if you develop: worsening headache, nausea, vomiting, confusion, weakness, loss of motion in you (more content not included)... Normal [facility] ED Note-Physicianon 08-08-20 ED Note-Physician Basic Information Time Seen: Bakari Chester DO 08/08/2022 09:24 Chief Complaint pt c/o high blood pressure of 153/108 this morning, reports headache and dizziness. PCP advised to go to ED for further evaluation. History of Present Illness 31-year-old female to the emergency department chief complaint of states that chronic headaches, dizziness, vision changes with elevated blood pressure. Patient reports that for the last several weeks she has had intermittent pressure-like headaches that are associated with a feeling of lightheadedness and occasional blurred vision. Patient reports that she decided to take her blood pressure today to see if this could be the cause and it was 153/108 at home. Patient reports that this is significantly elevated blood pressure for her and decided to call her primary care doctor to discuss. She was directed to go to the emergency department for evaluation of this headache and high blood pressure. Review of Systems A 10 point review of systems is negative except as noted above. Medical and Surgical History: Reviewed and noted Social history: Lives at home Tobacco: Denies Physical Exam Vitals & Measurements T: 36.5 ?C(Oral) HR: 58(Monitored) RR: 20 BP: 112/76 SpO2: 100% HT: 162 cm WT: 83.1 kg BMI: 31.66 VITALS: I have reviewed the triage vital signs. GENERAL: Well developed, well appearing adult in no acute distress. NEURO: Alert and oriented x4. Moves all extremities. Face is symmetric and expressive. Cranial nerves II through XII grossly intact as tested. Muscular strength and sensation grossly intact upper and lower extremities bilaterally. No dysarthria. No aphasia. No ataxia. Normal gait. NIHSS 0. EYES: PERRL. No scleral icterus or conjunctival injection. No discharge. HENT: Normocephalic, atraumatic. Hearing is grossly intact. Nares grossly patent and without discharge. Mucous membranes moist. NECK: No JVD. Patient moves neck without restriction. CARDIO: Rhythm regular. Normal rate. No murmur, rub, or gallop. Pulses equal bilaterally in the upper and lower extremity. No lower extremity edema. PULM: Lungs clear to auscultation in all bee. No wheezes, rales, or rhonchi. No conversational dyspnea. No splinting, stridor, or accessory muscle use. GI/: Abdomen is soft and non-tender. Normoactive bowel sounds. EXTREMITIES: Symmetric muscle bulk. No joint swelling. No clubbing, cyanosis, or deformity. SKIN: Warm and dry. Normal turgor. No rash or lesions appreciated. PSYCH: Mood, affect, and interaction is appropriate to the setting. Medical Decision Making Well-appearing but anxious 31-year-old female to the emergency department chief complaint of chronic headaches associated with blurred vision and elevated blood pressure. Vital stable, the patient is afebrile. She has apparently mildly elevated blood pressure. Neurologic examination is nonfocal. She has not been worked up for these headaches. We will order a CT scan of the head. Patient agrees with this plan. Lab work reviewed and unremarkable. CT head with empty sella suspicious for idiopathic intracranial hypertension. No other acute findings. I did call and discussed the case with Dr. Lee the on-call neurologist. He will see the patient in office and was given her information. Findings were discussed with patient. She is prescribed Fioricet tablets to help with headache. She is referred to neurology. She instructed follow-up with her primary care doctor about her elevated blood pressure. No need for intervention at this time for her mildly elevated blood pressures. Return precautions were discussed. All questions were answered. Patient was discharged home. Assessment/Plan Asymptomatic hypertension (I10: Essential (primary) hypertension) Headache (R51.9: Headache, unspecified) Orders: APAP/butalbital/caffe ine, 1 cap(s), Oral, q4hr for headache, 12 cap(s), Refill(s) 0, [id number], 162, cm, 08/08/22 9:11:00 EST, Height/Length Dosing, 83.1, kg, 08/08/22 9:11:00 EST, Weight Dosing ondansetron, 4 mg = 1 tab(s), Oral, q8hr, PRN Nausea/Vomiting, # 12 tab(s), Refills(s) 0, Pharmacy: [facility]/pharmacy #[id number], 162, cm, 08/08/22 9:11:00 EST, Height/Length Dosing, 83.1, kg, 08/08/22 9:11:00 EST, Weight Dosing Automated Diff Basic Metabolic Panel Beta hCG Qual CBC w/ Auto Diff CT Head or Brain w/o Contrast eGFR Influenza A&B Ag Rapid COVID Antigen ([facility]) UA With Cult Reflex Disposition Plan Patient Discharge Condition Stable Discharge Disposition Home Discharge Prescription List Prescriptions APAP/butalbital/caffe ine 300 mg-50 mg-40 mg oral capsule, 1 cap(s), Oral, q4hr, PRN Zofran ODT 4 mg Tab-Dis, 4 mg= 1 tab(s), Oral, q8hr, PRN Follow-up With When Contact Information Kenrick Lee In 3 days 08/11/[address], [place] [address] [facility] (1) Additional Instructions: Follow-up with Dr. Lee to discuss your headaches. Seek immediate medical attention if you develop: worsenin (more content not included)... Normal [facility] Comment on above: Result Comment: Elec tronically Signed By: Bakari Chester DO\.br\Date and Time Signed: 08/08/22 19:37 EST ED Patient Education Noteon 08-08-2022 ED Patient Education Note Neurology Idiopathic Intracranial Hypertension Idiopathic intracranial hypertension (IIH) is a condition that increases pressure around the brain. The fluid that surrounds the brain and spinal cord (cerebrospinal fluid, CSF) increases and causes the pressure. Idiopathic means that the cause of this condition is not known. IIH affects the brain and spinal cord (is a neurological disorder). If this condition is not treated, it can cause vision loss or blindness. What increases the risk? You are more likely to develop this condition if: ? You are severely overweight (obese). ? You are a woman who has not gone through menopause. ? You take certain medicines, such as control or steroids. What are the signs or symptoms? Symptoms of IIH include: ? Headaches. This is the most common symptom. ? Pain in the shoulders or neck. ? Nausea and vomiting. ? A rushing water or pulsing sound within the ears (pulsatile tinnitus). ? Double vision. ? Blurred vision. ? Brief episodes of complete vision loss. How is this diagnosed? This condition may be diagnosed based on: ? Your symptoms. ? Your medical history. ? CT scan of the brain. ? MRI of the brain. ? Magnetic resonance venogram (MRV) to check veins in the brain. ? Diagnostic lumbar puncture. This is a procedure to remove and examine a sample of cerebrospinal fluid. This procedure can determine whether too much fluid may be causing IIH. ? A thorough eye exam to check for swelling or nerve damage in the eyes. How is this treated? Treatment for this condition depends on your symptoms. The goal of treatment is to decrease the pressure around your brain. Common treatments include: ? Medicines to decrease the production of spinal fluid and lower the pressure within your skull. ? Medicines to prevent or treat headaches. ? Surgery to place drains (shunts) in your brain to remove excess fluid. ? Lumbar puncture to remove excess cerebrospinal fluid. Follow these instructions at home: ? If you are overweight or obese, work with your health care provider to lose weight. ? Take adqu-wgp-ufniblv and prescription medicines only as told by your health care provider. ? Do not drive or use heavy machinery while taking medicines that can make you sleepy. ? Keep all follow-up visits as told by your health care provider. This is important. Contact a health care provider if: ? You have changes in your vision, such as: ? Double vision. ? Not being able to see colors (color vision). Get help right away if: ? You have any of the following symptoms and they get worse or do not get better. ? Headaches. ? Nausea. ? Vomiting. ? Vision changes or difficulty seeing. Summary ? Idiopathic intracranial hypertension (IIH) is a condition that increases pressure around the brain. The cause is not known (is idiopathic). ? The most common symptom of IIH is headaches. ? Treatment may include medicines or surgery to relieve the pressure on your brain. This information is not intended to replace advice given to you by your health care provider. Make sure you discuss any questions you have with your health care provider. Document Released: 11/09/2002 Document Revised: 08/13/2018 Document Reviewed: 07/22/2017 [employer] Patient Education ? 2020 Anywhere to Go. Normal [facility] ED Patient Summaryon 022 ED Patient Summary [place] [id number] Patient Discharge Instructions Person Information Name: SHAZIA CHOU Age: 31 Years Arrival Date: 08/08/2022 09:03:37 Discharge Diagnosis: Headache Primary Care Physician: Aimee Walker CNP Provider Information Primary Provider: Bakari Chester DO Advanced Compressor Operator:None The exam and treatment you received in the Emergency Department were for an urgent problem and are not intended as complete care. It is important that you follow up with a doctor, nurse practitioner, or physician?s purchasing administrative assistant for ongoing care. If your symptoms become worse or you do not improve as expected and you are unable to reach your usual health care provider, you should return to the Emergency Department. We are available 24 hours a day. JOSÉ ANTONIO SHAZIA Bach has been given the following list of patient education materials, prescriptions and follow-up instructions: Follow-up Instructions: With: Address: When: Kenrick Lee [address], [place] [address] Business (1) In 3 days 08/11/2022 Comments: Follow-up with Dr. Lee to discuss your headaches. Seek immediate medical attention if you develop: worsening headache, nausea, vomiting, confusion, weakness, loss of motion in your arms or legs, loss of control of your urine or stool, difficulty waking from sleep, neck pain, fever, or any new or worsening symptoms. With: Address: When: Aimee Walker In 3 days 08/11/2022 Comments: Call the office of your primary care doctor to arrange for follow-up within the above-stated timeframe. Follow-up with your primary care doctor about this ED visit. You should review your labs, imaging, and diagnoses from this ED visit with your primary care physician. If you were prescribed medications you should discuss possible side-effects and drug interactions with your pharmacist. Call 911 or go to the nearest Emergency Department if you develop any new or worsening symptoms. In the event that this physician does not participate in your insurance network, please consult with your insurance company to find a nearby participating provider. Patient Education Materials: Idiopathic Intracranial Hypertension A MESSAGE TO ALL PATIENTS REGARDING OPIOIDS PRESCRIPTION OPIOIDS: WHAT YOU NEED TO KNOW Prescription opioids can be used to help relieve snvybxfi-op-elviyl pain and are often prescribed following a surgery or injury, or for certain health conditions. These medications can be an important part of the treatment but also come with serious risks. It is important to work with your healthcare provider to make sure you are getting the safest, most effective care. WHAT ARE THE RISKS AND SIDE EFFECTS OF OPIOID USE? Prescription opioids carry serious risks of addiction and overdose, especially with prolonged use. An opioid overdose, often marked by slowed breathing, can cause sudden . The use of prescription opioids can have a number of side effects as well, even when taken as directed: ? Tolerance?meaning you might need to take more of the medication for the same pain relief ? Physical dependence?meaning you have symptoms of withdrawal when a medication is stopped ? Increased sensitivity to pain ? Constipation ? Nausea, vomiting, and dry mouth ? Sleepiness and dizziness ? Confusion ? Depression ? Low levels of testosterone that can result in lower sex drive, energy, and strength ? Itching and sweating RISKS ARE GREATER WITH: ? History of drug misuse, substance use disorder, or overdose ? Mental health conditions (such as depression or anxiety) ? Sleep apnea ? Older age (65 years and older) ? Avoid alcohol while taking prescription opioids. Also, unless specifically advised by your health care provider, medications to avoid include: ? Benzodiazepines (such as Xanax or Valium) ? Muscle relaxants (such as Soma or Flexeril) ? Hypnotics (such as Ambien or Lunesta) ? Other prescription opioids KNOW YOUR OPTIONS Talk to your health care provider about ways to manage your pain that don?t involve prescription opioids. Some of these options may actually work better and have fewer risks and side effects. Options may include: ? Pain relievers such as acetaminophen, ibuprofen, and naproxen ? Some medication that are also used for depression or seizures ? Physical therapy and exercise ? Cognitive behavioral therapy, a psychological, goal-directed approach, in which patients learn how to modify physical, behavioral, and emotional triggers of pain and stress. IF YOU ARE PRESCRIBED OPIOIDS FOR PAIN: ? Never take opioids in greater amounts or more often than prescribed. ? Follow up with your primary health care provider. o Work together to create a plan on how to manage your pain. o Talk about ways to help manage your pain katharine (more content not included)... Normal [facility] HEMATOLOGYOrdered By: SYSTEM SYSTEM on 08-08-2022 Basophils/100 WBC (Bld) 0.5 % Normal 0.0 - 2.0 % [facility] Basophils/Leukocytes Auto (Bld) [Pure # fraction] 0.1 E9/L Normal 0.0 - 0.2 E9/L [facility] Eosinophils/100 WBC (Bld) 2.8 % Normal 0.0 - 8.0 % [facility] Eosinophils/Leukocytes Auto (Bld) [Pure # fraction] 0.3 E9/L Normal 0.0 - 0.5 E9/L [facility] Lymphocytes/100 WBC (Bld) 15.7 % Normal 14.0 - 50.0 % [facility] Lymphocytes/Leukocytes Auto (Bld) [Pure # fraction] 1.7 E9/L Normal 1.0 - 4.0 E9/L [facility] Monocytes/100 WBC (Bld) 6.2 % Normal 4.0 - 14.0 % [facility] Monocytes/Leukocytes Auto (Bld) [Pure # fraction] 0.7 E9/L Normal 0.2 - 1.0 E9/L [facility] Neutrophils/100 WBC (Bld) 74.8 % Normal 36.0 - 75.0 % [facility] Neutrophils/Leukocytes Auto (Bld) [Pure # fraction] 8.3 E9/L High 2.0 - 7.5 E9/L [facility] HEMATOLOGYOrdered By: Shasta Eller on 08-08-2022 Erythrocyte distribution width (RBC) [Ratio] 14.1 % Normal 10.9 - 14.2 % [facility] Hematocrit (Bld) [Volume fraction] 34.9 % Normal 34.0 - 46.0 % [facility] Hemoglobin (Bld) [Mass/Vol] 11.9 g/dL Low 12.0 - 16.0 gm/dL [facility] MCH (RBC) [Entitic mass] 32.2 pg Normal 27.0 - 34.0 pg [facility] MCHC (RBC) [Mass/Vol] 34.1 g/dL Normal 31.4 - 36.0 gm/dL [facility] MCV (RBC) [Entitic vol] 94.5 fL Normal 80.0 - 100.0 fL [facility] Platelet mean volume (Bld) [Entitic vol] 9.0 fL Normal 6.4 - 10.8 fL [facility] Platelets (Bld) [#/Vol] 288.0 E9/L Normal 150. 0 - 500.0 E9/L [facility] RBC (Bld) [#/Vol] 3.7 E12/L Low 4.3 - 5.9 E12/L [facility] WBC corrected for nucl RBC Auto (Bld) [#/Vol] 11.1 E9/L High 4.0 - 11.0 E9/L [facility] Influenza A&B Agon 2 Influenzae A Ag Negative Normal Negative [facility] Comment on above: Performed By: #### 1 [id number] #### [facility] [address] [place] [address] Influenzae B Ag Negative Normal Negative [facility] Comment on above: Result Comment: Test sensitivity and specificity vary for age group, specimen type, antigen types, and prevalence of disease. Test results must be evaluated in conjunction with other clinical data available to the physician. Individuals who received nasally administered Influenza A vaccine may have positive test results up to 3 days after vaccination. Performed By: #### 1 [id number], [id number] #### [facility] [address] [place] [address] MICRO OTHER TESTSOrdered By: Kimberli Briseno on 08-08-2022 Influenzae A Ag Negative (08/08/22 9:59 AM) Normal Negative [facility] Man Sero Influenzae B Ag Negative (08/08/22 9:59 AM) Normal Negative [facility] Man [facility]ero Rapid COV Int NEG Ctl Pass (08/08/22 9:59 AM) Normal [facility] Man [place]ero Rapid COV Int POS Ctl Pass (08/08/22 9:59 AM) Normal [facility]ero SARS-CoV+SARS-CoV-2 (COVID-19) Ag IA.rapid Ql (Resp) Not Detected (08/08/22 9:59 AM) Normal Not Detected [facility] Man Sero Rapid COVID Antigen ([facility])on 08-08-2022 Rapid COV Int NEG Ctl Pass Normal [facility] Comment on above: Performed By: #### 1 [id number] ####[place] [id number] [place] [address] Rapid COV Int POS Ctl Pass Normal [facility] Comment on above: Performed By: #### 1 [id number] ####[facility] [id number] [place] [address] SARS-CoV+SARS-CoV-2 (COVID-19) Ag IA.rapid Ql (Resp) Not detected Normal Not Detected [facility] Comment on above: Result Comment: The XAPPmediaitor? System for Rapid Detection of SARS-CoV-2 is a chromatographic digital immunoassay intended for the direct and qualitative detection of SARS-CoV-2 nucleocapsid antigens in nasal swabs from individuals who are suspected of COVID-19 by their healthcare provider within the first five days of the onset of symptoms. Negative results should be treated as presumptive, do not rule out SARS-CoV-2 infection and should not be used as the sole basis for treatment or patient management decisions, including infection control decisions. Negative results should be considered in the context of a patient?s recent exposures, history and the presence of clinical signs and symptoms consistent with COVID-19, and confirmed with a molecular assay, if necessary, for patient management. For in vitro diagnostic use. In the [place], only for use under an Emergency Use Authorization. In the [place], this test has not been FDA cleared or approved; this test has been authorized by FDA under an EUA for use by authorized laboratories; use by laboratories certified under the CLIA, 42 U.S.C. ?263a, that meet requirements to perform moderate, high, or waived complexity tests and at the Point of Care (POC), i.e., in patient care settings operating under a CLIA Certificate of Waiver, Certificate of Compliance, or Certificate of Accreditation. This test has been authorized only for the detection of proteins from SARS-CoV-2, not for any other viruses or pathogens; and, in the [place], this test is only authorized for the duration of the declaration that circumstances exist justifying the authorization of emergency use of in vitro diagnostics for detection and/or diagnosis of the virus that causes COVID-19 under Section 564(b)(1) of the Act, 21 U.S.C. ? 360bbb-3(b)(1), unless the authorization is terminated or revoked sooner. Performed By: #### 1 [id number], [id number] ####[place] [id number] [place] [id number] ADMITTED TO INTENSIVE CARE UNIT FOR CONDITION OF INTEREST:FIND:PT: NO Normal [facility] Comment on above: Performed By: #### 1 [id number], [id number] ####[place] [id number] [place] [id number] EMPLOYED IN A HEALTHCARE SETTING:FIND:PT: NO Normal [facility] Comment on above: Performed By: #### 1 [id number], [id number] ####[place] [id number] [place] [address] FIRST TEST FOR CONDITION OF INTEREST:FIND:PT: YES Normal [facility] Comment on above: Performed By: #### 1 [id number], [id number] ####[facility] [address] [place] [address] HAS SYMPTOMS RELATED TO CONDITION OF INTEREST:FIND:PT: YES Normal [facility] Comment on above: Performed By: #### 1 [id number], [id number] ####[facility] [address] [place] [address] HOSPITALIZED FOR CONDITION OF INTEREST:FIND:PT: NO Normal [facility] Comment on above: Performed By: #### 1 [id number], [id number] ####[facility] [address] [place] [address] STATUS:FIND:PT: NO Normal [facility] Comment on above: Performed By: #### 1 [id number], [id number] ####[facility] [address] [place] [address] RESIDES IN A [facility]LY [facility] CARE SETTING:FIND:PT: NO Normal [facility] Comment on above: Performed By: #### 1 [id number], [id number] ####[facility] [address] [place] [address] SEROLOGYOrdered By: Kimberli heart on 08-08-2022 Beta hCG Ql Negative (08/08/22 9:51 AM) Normal [facility] Man Sero UA With Cult Reflexon 2021 Bilirubin Ql (U) Negative Normal Negative [facility] Comment on above: Performed By: #### 1 [id number], [id number], 2815358, 7951060, 03843733, [id number] #### [facility] [address] [id number] Clarity (U) CLEAR Normal Clear [facility] Comment on above: Performed By: #### 1 [id number], 0969130, 7333108, 2082773, [id number], [id number] #### [facility] [address] [place] [address] Color (U) YELLOW Normal Yellow [facility] Comment on above: Performed By: #### 1 [id number], 8855327, 3006506, 7330638, [id number], [id number] #### [facility] [address] [place] [address] Epithelial cells.squamous LM.HPF (Urine sed) [#/Area] 3-4 Normal 0-2 [facility] Comment on above: Performed By: #### 1 [id number], 9701453, 8114520, 2576125, [id number], [id number] #### [facility] [address] [place] [address] Glucose Test strip (U) [Mass/Vol] Negative Normal Negative [facility] Comment on above: Performed By: #### 1 [id number], 7643526, 3987384, 4926119, [id number], [id number] #### [facility] [address] [place] [address] Hemoglobin Ql (U) Negative Normal Negative [facility] Comment on above: Performed By: #### 1 [id number], 5742924, 1766652, 3210412, 53011175, [id number] #### [facility] [address] [place] [address] Ketones (U) [Mass/Vol] Negative Normal Negative [facility] Comment on above: Performed By: #### 1 6437573, 9885793, 4018921, 6188762, 80769378, 2947068 #### [facility] [address] [place] [address] [place].plasma/[place]. RBC (Bld) [Mass ratio] 0-3 Normal 0-3 [facility] Comment on above: Performed By: #### 1 [id number], 8935074, 6413799, 8771522, 20132497, [id number] #### [facility] [address] [place] [address] Nitrite Ql (U) Negative Normal Negative [facility] Comment on above: Performed By: #### 1 3184078, 5593114, 6871322, 8326331, 94383879, 2716436 #### [facility] [address] [place], [place] [id number] pH (U) 5.5 [pH] Invalid Interpretation Code 5.0-9.0 [facility] Comment on above: Performed By: #### 1 [id number], 1717952, 0894810, 9432159, 80149313, 4759821 #### [facility] [address] [place], [place] [id number] Protein (U) [Mass/Vol] Negative Normal Negative [facility] Comment on above: Performed By: #### 1 7446887, 1036940, 5677050, 0366998, 57100263, 9573095 #### [facility] [address] [place] [address] Specific gravity (U) [Rel density] <=1.005 Invalid Interpretation Code 1.005-1.030 [facility] Comment on above: Performed By: #### 1 5572359, 5948830, 5055266, 7078251, 11149256, 9916113 #### [facility] [address] [place], [place] [id number] Type of Urine collection method Clean Catch Normal [facility] Comment on above: Performed By: #### 1 2460359, 2555014, 4541150, 0287908, 39205691, 9738966 #### [facility] [address] [place], [place] [id number] Urobilinogen Qn (U) 0.2 {Lucila'U}/dL Normal 0.0-1.0 [facility] Comment on above: Performed By: #### 1 4671233, 2045897, 0711360, 5707524, 02539707, 9948946 #### [facility] [address] [place] [address] WBC Auto Ql (U) Negative Normal Negative [facility] Comment on above: Performed By: #### 1 4718497, 5704502, 6697158, 6358189, 83637260, 5429619 #### [facility] [address] [place] [address] WBC LM.HPF (Urine sed) [#/Area] 0-5 Normal 0-5 [facility] Comment on above: Performed By: #### 1 9191414, 0724790, 9196799, 3034102, 01159449, 3312584 #### [facility] [address] [place] [address] URINALYSISOrdered By: Kimberli Briseno on 08-08-2022 Bilirubin Ql (U) Negative (08/08/22 10:01 AM) Normal Negative [facility] UA Auto SS Clarity (U) Clear (08/08/22 10:01 AM) Normal Clear [facility] UA Auto SS Color (U) Yellow (08/08/22 10:01 AM) Normal Yellow [facility] UA Auto SS Epithelial cells.squamous LM.HPF (Urine sed) [#/Area] 3-4 /HPF Normal 0-2/HPF [facility] UA Aut o SS Glucose Test strip (U) [Mass/Vol] Negative (08/08/22 10:01 AM) Normal Negative [facility] UA Auto SS Hemoglobin Ql (U) Negative (08/08/22 10:01 AM) Normal Negative [facility] UA Auto SS Ketones (U) [Mass/Vol] Negative (08/08/22 10:01 AM) Normal Negative [facility] UA Auto SS [place].plasma/[place]. RBC (Bld) [Mass ratio] 0-3 /HPF Normal 0-3/HPF [facility] UA A uto SS Nitrite Ql (U) Negative (08/08/22 10:01 AM) Normal Negative [facility] UA Auto SS pH (U) 5.5 *NA* (08/08/22 10:01 AM) Invalid Interpretation Code 5.0 - 9.0 [facility] UA Auto SS Protein (U) [Mass/Vol] Negative (08/08/22 10:01 AM) Normal Negative [facility] UA Auto SS Specific gravity (U) [Rel density] <=1.005 *NA* (08/08/22 10:01 AM) Invalid Interpretation Code 1.005 - 1.030 [facility] UA Auto SS UA Spec Desc Clean Catch (08/08/22 10:01 AM) Normal [facility] UA Auto SS Urobilinogen Qn (U) 0.2097574 {Lucila'U}/dL Normal 0.0 - 1.0 EU/dL [facility] UA Auto SS WBC Auto Ql (U) Negative (08/08/22 10:01 AM) Normal Negative [facility] UA Auto SS WBC LM.HPF (Urine sed) [#/Area] 0-5 /HPF Normal 0-5/HPF [facility] UA Auto SS eGFRon 08-08-2022 GFR/1.73 sq M.predicted among blacks MDRD (S/P/Bld) [Vol rate/Area] mL/min/{1.73_m2} Normal >=59 [facility] Comment on above: Order Comment: Order added by Discern Expert. Result Comment: eGFR is race adjusted. AA=. Performed By: #### 1 [id number], 4455720, 8140292, 2188601, 18032236, 9864073 #### [facility] [address] [place] [address] GFR/1.73 sq M.predicted among non-blacks MDRD (S/P/Bld) [Vol rate/Area] mL/min/{1.73_m2} Normal >=59 [facility] Comment on above: Order Comment: Order added by Discern Expert. Result Comment: Purchasing Administrative Assistant edgar kidney disease could be indicated at eGFR's of less than 60 mL/min/1.73m2. Kidney failure is indicated at less than 15 mL/min/1.73m2. Performed By: #### 1 [id number], 6998039, 8496317, 5878023, [id number], 4666289 #### [facility] [address] [place] [address] CBC AUTO DIFFon 07-19-2022 BASO # 0.1 103/ul Normal 0.0-0.1 [facility] Comment on above: Performed By: #### I NFLUAB #### [facility] [address] [place], [place] [address] Dr. Manuel Sandhu Basophils/100 WBC (Bld) 0.4 % Normal 0.2-2.0 [facility] Comment on above: Performed By: #### I NFLUAB #### [facility] [address] [place] [address] Dr. Manuel Sandhu EO # 0.3 103/ul Normal 0.0-0.7 [facility] Comment on above: Performed By: #### I NFLUAB #### [facility] [address] [place] [address] Dr. Manuel Sandhu Eosinophils/100 WBC (Bld) 2.4 % Normal 0.9-7.0 [facility] Comment on above: Performed By: #### I NFLUAB #### [facility] [address] [place] [address] Dr. Manuel Sandhu Erythrocyte distribution width (RBC) [Ratio] 13.7 % Normal 11.0-15.0 [facility] Comment on above: Performed By: #### I NFLUAB #### [facility] [address] [place] [address] Dr. Manuel Sandhu Hematocrit (Bld) [Volume fraction] 36.5 % Normal 36.0-48.0 [facility] Comment on above: Performed By: #### I NFLUAB #### [facility] [address] [place] [address] Dr. Manuel Sandhu Hemoglobin (Bld) [Mass/Vol] 12.3 g/dL Normal 12.0-16.0 [facility] Comment on above: Performed By: #### I NFLUAB #### [facility] [address] [place] [address] Dr. Manuel Sandhu IG # 0.04 10e3/ul Critically high 0.00-0.03 [facility] Comment on above: Performed By: #### I NFLUAB #### [facility] [address] [place] [address] Dr. Manuel Sandhu IG % 0.3 % Normal 0.0-0.5 [facility] Comment on above: Performed By: #### I NFLUAB #### [facility] [address] [place] [address] Dr. Manuel Sandhu LYMPH # 2.6 103/ul Normal 1.2-3.8 [facility] Comment on above: Performed By: #### I NFLUAB #### [facility] [address] [place] [address] Dr. Manuel Sandhu Lymphocytes/100 WBC (Bld) 22.3 % Normal 20.5-60.0 [facility] Comment on above: Performed By: #### I NFLUAB #### [facility] [address] [place] [address] Dr. Manuel Sandhu MANUAL DIFF REQ NO Normal [facility] Comment on above: Performed By: #### I NFLUAB #### [facility] [address] [place] [address] Dr. Manuel Sandhu MCH (RBC) [Entitic mass] 32.5 pg Normal 26.7-34.0 [facility] Comment on above: Performed By: #### I NFLUAB #### [facility] [address] [place] [address] Dr. Manuel Sandhu MCHC (RBC) [Mass/Vol] 33.7 g/dL Normal 29.9-35.2 [facility] Comment on above: Performed By: #### I NFLUAB #### [facility] [address] [place] [address] Dr. Manuel Sandhu MCV (RBC) [Entitic vol] 96.6 fL Normal 81.0-99.0 [facility] Comment on above: Performed By: #### I NFLUAB #### [facility] [address] [place] [address] Dr. Manuel Sandhu MONO # 0.6 103/ul Normal 0.3-0.8 [facility] Comment on above: Performed By: #### I NFLUAB #### [facility] [address] [place] [address] Dr. Manuel Sandhu Monocytes/100 WBC (Bld) 5.2 % Normal 1.7-12.0 [facility] Comment on above: Performed By: #### I NFLUAB #### [facility] [address] [place] [address] Dr. Manuel Sandhu NEUT # 8.2 103/ul Critically high 1.4-6.5 [facility] Comment on above: Performed By: #### I NFLUAB #### [facility] [address] [place] [address] Dr. Manuel Sandhu Neutrophils/100 WBC (Bld) 69.4 % Normal 43.0-75.0 [facility] Comment on above: Performed By: #### I NFLUAB #### [facility] [address] [place] [address] Dr. Manuel Sandhu Platelet mean volume (Bld) [Entitic vol] 11.2 fL Normal 9.5-13.5 [facility] Comment on above: Performed By: #### I NFLUAB #### [facility] [address] [place] [address] Dr. Manuel Sandhu PLT 308 103/ul Normal 150-450 [facility] Comment on above: Performed By: #### I NFLUAB #### [facility] [address] [place] [address] Dr. Manuel Sandhu RBC 3.78 106/ul Critically low 4.20-5.40 [facility] Comment on above: Performed By: #### I NFLUAB #### [facility] [address] [place] [address] Dr. Manuel Sandhu WBC 11.8 103/ul Critically high 4.0-11.0 [facility] Comment on above: Performed By: #### I NFLUAB #### [facility] [address] [place] [address] Dr. Manuel Sandhu D-DIMERon 07-19-2022 D-DIMER 0.29 mg/L FEU Normal <=0.59 [facility] Comment on above: Performed By: #### U MICRO, ERUR #### [facility] [address] [place] [address] Dr. Manuel Sandhu D-DIMER COMMENTS SEE BELOW Normal [facility] Comment on above: Result Comment: Incr eases in D-Dimer concentration observed with thromboembolic events can be variable due to localization, size, and age of the thrombus. Therefore, a thromboembolic event cannot be diagnosed with certainty on the basis of the reference range. D-Dimers may also be elevated for a variety of disorders including: advanced age, , coronary disease, cancer, liver disease, infection, inflammation, hematoma, DIC, trauma, post-surgery, diabetes, thrombolytic or anticoagulant therapy, stress, and generalized hospitalization. Performed By: #### U MICRO, ERUR #### [facility] [address] [place] [address] Dr. Manuel Sandhu LIPASEon 07-19-2022 Lipase [Catalytic activity/Vol] 119.0 U/L Normal 73.0-393.0 [facility] Comment on above: Performed By: #### C CELINA JENNIE, LIPA #### [facility] [address] [place] [address] Dr. Manuel Sandhu PROF 14(COMP METB)on 022 Albumin [Mass/Vol] 3.5 g/dL Normal 3.4-5.0 [facility] Comment on above: Performed By: #### C MP JENNIE, LIPA #### [facility] [address] [place] [address] Dr. Manuel Sandhu Albumin/Globulin [Mass ratio] 1.0 {ratio} Normal [facility] Comment on above: Performed By: #### C CELINA JENNIE, LIPA #### [facility] [address] [place] [address] Dr. Manuel Sandhu ALP [Catalytic activity/Vol] 65 U/L Normal 46-116 [facility] Comment on above: Performed By: #### C MP JENNIE, LIPA #### [facility] [address] [place] [address] Dr. Manuel Sandhu ALT [Catalytic activity/Vol] 33 U/L Normal 14-59 [facility] Comment on above: Performed By: #### C MP JENNIE, LIPA #### [facility] [address] [place] [address] Dr. Manuel Sandhu Anion gap [Moles/Vol] 10.8 mmol/L Normal [facility] Comment on above: Performed By: #### C MP JENNIE, LIPA #### [facility] [address] [address] [address] Manuel Sandhu AST [Catalytic activity/Vol] 20 U/L Normal 15-37 [facility] Comment on above: Performed By: #### C MP, JENNIE, LIPA #### [facility] [address] [address] [address] Manuel Sandhu Bilirubin [Mass/Vol] 0.1 mg/dL Critically low 0.2-1.0 [facility] Comment on above: Performed By: #### C MP, JENNIE, LIPA #### [facility] [address] [address] [address] Manuel Sandhu Calcium [Mass/Vol] 8.7 mg/dL Normal 8.5-10.1 [facility] Comment on above: Performed By: #### C MP, JENNIE, LIPA #### [facility] [address] [place] [address] Dr. Manuel Sandhu Chloride [Moles/Vol] 105 mmol/L Normal 98-107 [facility] Comment on above: Performed By: #### C MP, JENNIE, LIPA #### [facility] [address] [address] [address] Manuel Sandhu CO2 [Moles/Vol] 24.4 mmol/L Normal 21.0-32.0 [facility] Comment on above: Performed By: #### C MP, JENNIE, LIPA #### [facility] [address] [address] [address] Manuel Sandhu Creatinine [Mass/Vol] 0.91 mg/dL Normal 0.55-1.02 [facility] Comment on above: Performed By: #### C MP, JENNIE, LIPA #### [facility] [address] [address] [address] Manuel Sandhu EGFR-AF EQUATORIAL GUINEAN >60 Normal >=60 [facility] Comment on above: Performed By: #### C MP, JENNIE, LIPA #### [facility] [address] [address] [address] Manuel Sandhu EGFR-NON AF EQUATORIAL GUINEAN >60 Normal >=60 [facility] Comment on above: Performed By: #### C MP, JENNIE, LIPA #### [facility] [address] [address] [address] Manuel Sandhu Globulin (S) [Mass/Vol] 3.4 g/dL Normal [facility] Comment on above: Performed By: #### C MP, JENNIE, LIPA #### [facility] [address] [place] [address] Dr. Manuel Sandhu Glucose [Mass/Vol] 127 mg/dL Critically high 74-106 [facility] Comment on above: Performed By: #### C MP, JENNIE, LIPA #### [facility] [address] [place] [address] Dr. Manuel Sandhu Potassium [Moles/Vol] 3.2 mmol/L Critically low 3.5-5.1 [facility] Comment on above: Performed By: #### C MP JENNIE, LIPA #### [facility] [address] [place] [address] Dr. Manuel Sandhu Protein [Mass/Vol] 6.9 g/dL Normal 6.4-8.2 [facility] Comment on above: Performed By: #### C CELINA JENNIE, LIPA #### [facility] [address] [place] [address] Dr. Manuel Sandhu Sodium [Moles/Vol] 137 mmol/L Normal 136-145 [facility] Comment on above: Performed By: #### C CELINA JENNIE, LIPA #### [facility] [address] [place] [address] Dr. Manuel Sandhu Urea nitrogen [Mass/Vol] 13.0 mg/dL Normal 7.0-18.0 [facility] Comment on above: Performed By: #### C MP JENNIE, LIPA #### [facility] [address] [place] [address] Dr. Manuel Sandhu Urea nitrogen/Creatinine [Mass ratio] 14.3 mg/mg Normal [facility] Comment on above: Performed By: #### C MP, JENNIE, LIPA #### [facility] [address] [place] [address] Dr. Manuel Sandhu PROTIMEon 07-19-2022 INR Coag (PPP) [Relative time] 0.97 {INR} Normal [facility] Comment on above: Performed By: #### P TT, PT #### [facility] [address] [place] [address] Dr. Manuel Sandhu INR GUIDELINES SEE BELOW Normal [facility] Comment on above: Result Comment: CHUY RED INR: 2.0 - 3.0 CONDITIONS NOT LISTED BELOW 2.5 - 3.5 FOR PROSTHETIC HEART VALVE REPLACEMENT 2.5 - 3.5 RECURRENT THROMBOSIS Performed By: #### P TT, PT #### [facility] [address] [place] [address] Dr. Manuel Sandhu PT Coag (PPP) [Time] 10.5 s Normal 9.0-11.6 [facility] Comment on above: Performed By: #### P TT, PT #### [facility] [address] [place] [address] Dr. Manuel Sandhu PTTon 07-19-2022 aPTT Coag (Bld) [Time] 26.1 s Normal 22.3-36.2 [facility] Comment on above: Performed By: #### P TT, PT #### [facility] [address] [place] [address] Dr. Manuel Sandhu TROPONIN, HIGH SENSITIVITYon 07-19-2022 HSTROP 5.4 pg/mL Normal 4.0-51.3 [facility] Comment on above: Result Comment: CUT- OFF POINTS HAVE BEEN ESTABLISHED BASED ON THE FOURTH UNIVERSAL DEFINITIONS OF MYOCARDIAL INFARCTION. THE UPPER REFERENCE LIMIT (URL) OF TROPONIN, DEFINED THE 99TH PERCENTILE OF cTnI DISTRIBUTION IN A REFERENCE POPULATION, HAS BEEN CONFIRMED THE DECISION THRESHOLD FOR ID DIAGNOSIS. Performed By: #### U MICRO, ERUR #### [facility] [address] [place] [address] Dr. Manuel Sandhu HSTROP 5.1 pg/mL Normal 4.0-51.3 [facility] Comment on above: Result Comment: CUT- OFF POINTS HAVE BEEN ESTABLISHED BASED ON THE FOURTH UNIVERSAL DEFINITIONS OF MYOCARDIAL INFARCTION. THE UPPER REFERENCE LIMIT (URL) OF TROPONIN, DEFINED THE 99TH PERCENTILE OF cTnI DISTRIBUTION IN A REFERENCE POPULATION, HAS BEEN CONFIRMED THE DECISION THRESHOLD FOR ID DIAGNOSIS. Performed By: #### C JENNIE PATRICK LIPA #### [facility] [address] [place], [place] [address] Dr. Manuel Sandhu XR CHEST 1 Von 07-19-2022 XR CHEST 1 V PORTABLE CHEST X-RAY . INDICATION: Chest pain. COMPARISON: 06/12/2022 TECHNIQUE: Single AP portable chest radiograph. FINDINGS: TUBES AND LINES: None. LUNGS: Mildly elevated right hemidiaphragm. No focal opacity. PLEURA: No effusions or pneumothorax. HEART AND MEDIASTINUM: Within normal limits for portable technique. OSSEOUS STRUCTURES: No acute abnormality. IMPRESSION: No acute findings. Electronically authenticated by: LUCIANA ALLEN Date: 2022-07-19 19:28 Normal [facility]on 05-16 SARS-CoV-2 (COVID-19) RNA JOSÉ MIGUEL+probe Ql (Unsp spec) Not detected Normal NOT DETECTED [facility] Comment on above: Result Comment: When diagnostic testing is negative, the possibility of a false negative should be considered in the context of a patient's recent exposures and the presence of clinical signs and symptoms consistent with SARS-CoV-2. This test is not yet approved or cleared by the [place] FDA. When there are no FDA-approved or cleared tests available, and other criteria are met, FDA can make tests available under an emergency access mechanism called an Emergency Use Authorization (EUA). The EUA for this test is supported by the Respiratory Care Practitioner of Health and Human Service's declaration that circumstances exist to justify the emergency use of in vitro diagnostics for the detection and/or diagnosis of the virus that causes COVID-19. This EUA will remain in effect for the duration of the COVID-19 declaration justifying emergency of IVDs, unless it is terminated or revoked by the FDA (after which the test may no longer be used). Performed By: #### C JENNIE PATRICK LIPA #### [facility] [address] [place], [place] [address] Dr. Manuel Sandhu XR CHEST 2 Von 06-12-2022 XR CHEST 2 V EXAMINATION: XR CHES T 2 V HISTORY: COUGH , acute dyspnea COMPARISON: XR chest 07/12/2021 FINDINGS: LUNGS: No significant pulmonary parenchymal abnormalities. VASCULATURE: No increased pulmonary vasculature. PLEURA: No pneumothorax, effusion, or pleural thickening. CARDIAC: No cardiomegaly or cardiac silhouette abnormality. MEDIASTINUM: No visible mass or adenopathy. BONES: No fracture or visible bone lesion. OTHER: Negative. IMPRESSION: 1. No acute cardiopulmonary process. Stable chest. Electronically authenticated by: CAROLYNE RALPH Date: 2022-06-12 10:12 Normal [facility] Covid-19 PCR ([facility])on 05-15 SARS-CoV-2 (COVID-19) RNA JOSÉ MIGUEL+probe Ql (Unsp spec) Not detected Normal NOT DETECTED [facility] Comment on above: Result Comment: When diagnostic testing is negative, the possibility of a false negative should be considered in the context of a patient's recent exposures and the presence of clinical signs and symptoms consistent with SARS-CoV-2. This test is not yet approved or cleared by the [place] FDA. When there are no FDA-approved or cleared tests available, and other criteria are met, FDA can make tests available under an emergency access mechanism called an Emergency Use Authorization (EUA). The EUA for this test is supported by the [place] of Health and Human Service's declaration that circumstances exist to justify the emergency use of in vitro diagnostics for the detection and/or diagnosis of the virus that causes COVID-19. This EUA will remain in effect for the duration of the COVID-19 declaration justifying emergency of IVDs, unless it is terminated or revoked by the FDA (after which the test may no longer be used). Performed By: #### I NFLUAB #### [facility] [address] [place] [address] Dr. Manuel Sandhu CHEMISTRYOrdered By: SYSTEM SYSTEM on 04-20-2022 Anion gap [Moles/Vol] 12 mmol/L Normal 6 - 16 mEq/L [facility] Calcium [Mass/Vol] 9.5 mg/dL Normal 8.9 - 11. 1 mg/dL [facility] Chloride [Moles/Vol] 107 mmol/L Normal 101 - 1 11 mmol/L [facility] CO2 [Moles/Vol] 22 mmol/L Normal 21 - 31 mmol/L [facility] Creatinine [Mass/Vol] 0.6 mg/dL Normal 0.5 - 1.3 mg/dL [facility] GFR/1.73 sq M.predicted among blacks MDRD (S/P/Bld) [Vol rate/Area] mL/min/1.73 m2 Normal >=59mL/min/ 1.73 m2 [facility] Chem S GFR/1.73 sq M.predicted among non-blacks MDRD (S/P/Bld) [Vol rate/Area] mL/min/1.73 m2 Normal >=59mL/min/ 1.73 m2 [facility] Chem S Glucose [Mass/Vol] 98 mg/dL Normal 55 - 199 mg/dL [facility] Potassium [Moles/Vol] 3.6 mmol/L Normal 3.5 - 5.3 mmol/L [facility] Sodium [Moles/Vol] 137 mmol/L Normal 135 - 145 mmol/L [facility] Urea nitrogen [Mass/Vol] 15 mg/dL Normal 5 - 21 mg/dL [facility] Urea nitrogen/Creatinine [Mass ratio] 25 mg/mg High 10 - 20 [facility] HEMATOLOGYOrdered By: SYSTEM SYSTEM on 04-20-2022 Basophils/100 WBC (Bld) 0.6 % Normal 0.0 - 2.0 % [facility] Basophils/Leukocytes Auto (Bld) [Pure # fraction] 0.1 E9/L Normal 0.0 - 0.2 E9/L [facility] Eosinophils/100 WBC (Bld) 1.6 % Normal 0.0 - 8.0 % [facility] Eosinophils/Leukocytes Auto (Bld) [Pure # fraction] 0.2 E9/L Normal 0.0 - 0.5 E9/L [facility] Lymphocytes/100 WBC (Bld) 18.1 % Normal 14.0 - 50.0 % [facility] Lymphocytes/Leukocytes Auto (Bld) [Pure # fraction] 2.4 E9/L Normal 1.0 - 4.0 E9/L [facility] Monocytes/100 WBC (Bld) 6.2 % Normal 4.0 - 14.0 % [facility] Monocytes/Leukocytes Auto (Bld) [Pure # fraction] 0.8 E9/L Normal 0.2 - 1.0 E9/L [facility] Neutrophils/100 WBC (Bld) 73.5 % Normal 36.0 - 75.0 % [facility] Neutrophils/Leukocytes Auto (Bld) [Pure # fraction] 9.6 E9/L High 2.0 - 7.5 E9/L [facility] HEMATOLOGYOrdered By: Shasta Eller on 04-20-2022 Erythrocyte distribution width (RBC) [Ratio] 14.2 % Normal 10.9 - 14.2 % [facility] Hematocrit (Bld) [Volume fraction] 39.3 % Normal 34.0 - 46.0 % [facility] Hemoglobin (Bld) [Mass/Vol] 12.9 g/dL Normal 12.0 - 16.0 gm/dL [facility] MCH (RBC) [Entitic mass] 31.1 pg Normal 27.0 - 34.0 pg [facility] MCHC (RBC) [Mass/Vol] 32.7 g/dL Normal 31.4 - 36.0 gm/dL [facility] MCV (RBC) [Entitic vol] 95.1 fL Normal 80.0 - 100.0 fL [facility] Platelet mean volume (Bld) [Entitic vol] 9.7 fL Normal 6.4 - 10.8 fL [facility] Platelets (Bld) [#/Vol] 312.0 E9/L Normal 150. 0 - 500.0 E9/L [facility] RBC (Bld) [#/Vol] 4.1 E12/L Low 4.3 - 5.9 E12/L [facility] WBC corrected for nucl RBC Auto (Bld) [#/Vol] 13.1 E9/L High 4.0 - 11.0 E9/L [facility] Covid-19 PCR ([facility])on 03-15 SARS-CoV-2 (COVID-19) RNA JOSÉ MIGUEL+probe Ql (Unsp spec) Detected Critically abnormal NOT DETECTED [facility] Comment on above: Result Comment: This test is not yet approved or cleared by the [place] FDA. When there are no FDA-approved or cleared tests available, and other criteria are met, FDA can make tests available under an emergency access mechanism called an Emergency Use Authorization (EUA). The EUA for this test is supported by the Respiratory Care Practitioner of Health and Human Service's declaration that circumstances exist to justify the emergency use of in vitro diagnostics for the detection and/or diagnosis of the virus that causes COVID-19. This EUA will remain in effect for the duration of the COVID-19 declaration justifying emergency of IVDs, unless it is terminated or revoked by the FDA (after which the test may no longer be used). Performed By: #### C JENNIE PATRICK LIPA #### [facility] [address] [place] [address] Dr. Manuel Sandhu GROUP A STREP CULTUREon 03-15 S. pyogenes Ag Ql (Unsp spec) Culture Observations: NEGATIVE FOR GROUP A STREPTOCOCCUS. Normal [facility] Comment on above: Performed By: #### U MICRO, ERUR #### [facility] [address] [place] [address] Dr. Manuel Sandhu INFLUENZA A AND B AGon 04-07 INFLUENZA A AG Negative Normal NEGATIVE SEE COMMENT [facility] Comment on above: Performed By: #### I NFLUAB #### [facility] [address] [place] [address] Dr. Manuel Sandhu INFLUENZA B AG Negative Normal NEGATIVE SEE COMMENT [facility] Comment on above: Performed By: #### I NFLUAB #### [facility] [address] [place] [address] Dr. Manuel Sandhu INTERNAL CONTROLS Within Normal Limits Normal Wi thin Normal Limits [facility] Comment on above: Performed By: #### I NFLUAB #### [facility] [address] [place] [address] Dr. Manuel Sandhu STREPT SCREENon 04-07-2022 STREP SCREEN A Negative Normal NEGATIVE [facility] Comment on above: Performed By: #### U MICRO, ERUR #### [facility] [address] [place] [address] Dr. Manuel Sandhu CHEMISTRYOrdered By: SYSTEM SYSTEM on 04-03-2022 Anion gap [Moles/Vol] 14 mmol/L Normal 6 - 16 mEq/L [facility] Calcium [Mass/Vol] 9.3 mg/dL Normal 8.9 - 11. 1 mg/dL [facility] Chloride [Moles/Vol] 106 mmol/L Normal 101 - 1 11 mmol/L [facility] CO2 [Moles/Vol] 22 mmol/L Normal 21 - 31 mmol/L [facility] Cobalamin (Vitamin B12) [Mass/Vol] 658 pg/mL Normal 50 - 1500 pg/mL [facility] Creatinine [Mass/Vol] 0.7 mg/dL Normal 0.5 - 1.3 mg/dL [facility] Folate [Mass/Vol] ng/mL Normal >=6.7ng/mL [facility] misol GFR/1.73 sq M.predicted among blacks MDRD (S/P/Bld) [Vol rate/Area] mL/min/1.73 m2 Normal >=59mL/min/ 1.73 m2 [facility] Chem S GFR/1.73 sq M.predicted among non-blacks MDRD (S/P/Bld) [Vol rate/Area] mL/min/1.73 m2 Normal >=59mL/min/ 1.73 m2 [facility] Chem S Glucose [Mass/Vol] 83 mg/dL Normal 55 - 199 mg/dL [facility] Iron [Mass/Vol] 65 ug/dL Normal 35 - 153 mcg/dL [facility] Magnesium [Mass/Vol] 1.9 mg/dL Normal 1.3 - 2 .4 mg/dL [facility] Potassium [Moles/Vol] 3.7 mmol/L Normal 3.5 - 5.3 mmol/L [facility] Sodium [Moles/Vol] 138 mmol/L Normal 135 - 145 mmol/L [facility] Urea nitrogen [Mass/Vol] 13 mg/dL Normal 5 - 21 mg/dL [facility] Urea nitrogen/Creatinine [Mass ratio] 19 mg/mg Normal 10 - 20 [facility] HEMATOLOGYOrdered By: SYSTEM SYSTEM on 04-03-2022 Basophils/100 WBC (Bld) 0.7 % Normal 0.0 - 2.0 % [facility] Basophils/Leukocytes Auto (Bld) [Pure # fraction] 0.1 E9/L Normal 0.0 - 0.2 E9/L [facility] Eosinophils/100 WBC (Bld) 3.2 % Normal 0.0 - 8.0 % [facility] Eosinophils/Leukocytes Auto (Bld) [Pure # fraction] 0.4 E9/L Normal 0.0 - 0.5 E9/L [facility] Lymphocytes/100 WBC (Bld) 24.5 % Normal 14.0 - 50.0 % [facility] Lymphocytes/Leukocytes Auto (Bld) [Pure # fraction] 2.8 E9/L Normal 1.0 - 4.0 E9/L [facility] Monocytes/100 WBC (Bld) 6.4 % Normal 4.0 - 14.0 % [facility] Monocytes/Leukocytes Auto (Bld) [Pure # fraction] 0.7 E9/L Normal 0.2 - 1.0 E9/L [facility] Neutrophils/100 WBC (Bld) 65.2 % Normal 36.0 - 75.0 % [facility] Neutrophils/Leukocytes Auto (Bld) [Pure # fraction] 7.3 E9/L Normal 2.0 - 7.5 E9/L [facility] HEMATOLOGYOrdered By: Hansa grover on 04-03-2022 Erythrocyte distribution width (RBC) [Ratio] 14.1 % Normal 10.9 - 14.2 % [facility] Hematocrit (Bld) [Volume fraction] 37.3 % Normal 34.0 - 46.0 % [facility] Hemoglobin (Bld) [Mass/Vol] 12.4 g/dL Normal 12.0 - 16.0 gm/dL [facility] MCH (RBC) [Entitic mass] 31.6 pg Normal 27.0 - 34.0 pg [facility] MCHC (RBC) [Mass/Vol] 33.1 g/dL Normal 31.4 - 36.0 gm/dL [facility] MCV (RBC) [Entitic vol] 95.4 fL Normal 80.0 - 100.0 fL [facility] Platelet mean volume (Bld) [Entitic vol] 9.6 fL Normal 6.4 - 10.8 fL [facility] Platelets (Bld) [#/Vol] 267.0 E9/L Normal 150. 0 - 500.0 E9/L [facility] RBC (Bld) [#/Vol] 3.9 E12/L Low 4.3 - 5.9 E12/L [facility] WBC corrected for nucl RBC Auto (Bld) [#/Vol] 11.3 E9/L High 4.0 - 11.0 E9/L [facility] URINALYSISOrdered By: Aspen Leonard on 04-03-2022 Bilirubin Ql (U) Negative (04/03/22 6:51 PM) Normal Negative [facility] Auto SS Clarity (U) Clear (04/03/22 6:51 PM) Normal Clear [facility] Color (U) Yellow (04/03/22 6:51 PM) Normal Yellow [facility] SS Epithelial cells.squamous LM.HPF (Urine sed) [#/Area] 0-2 /HPF Normal 0-2/HPF [facility] UA Aut o SS Glucose Test strip (U) [Mass/Vol] Negative (04/03/22 6:51 PM) Normal Negative [facility] Auto SS Hemoglobin Ql (U) Negative (04/03/22 6:51 PM) Normal Negative [facility] Ketones (U) [Mass/Vol] Negative (04/03/22 6:51 PM) Normal Negative [facility]A Auto SS [place].plasma/[place]. RBC (Bld) [Mass ratio] 0-3 /HPF Normal 0-3/HPF [facility] UA A uto SS Nitrite Ql (U) Negative (04/03/22 6:51 PM) Normal Negative [facility] Auto SS pH (U) 5.0 *NA* (04/03/22 6:51 PM) Invalid Interpretation Code 5.0 - 9.0 [facility] SS Protein (U) [Mass/Vol] Negative (04/03/22 6:51 PM) Normal Negative [facility] SS Specific gravity (U) [Rel density] 1.010 *NA* (04/03/22 6:51 PM) Invalid Interpretation Code 1.005 - 1.030 [facility] SS UA Spec Desc Clean Catch (04/03/22 6:51 PM) Normal [facility] Auto SS Urobilinogen Qn (U) 0.5295251 {Lucila'U}/dL Normal 0.0 - 1.0 EU/dL [facility]A Auto SS WBC Auto Ql (U) Negative (04/03/22 6:51 PM) Normal Negative [facility] UA Auto SS WBC LM.HPF (Urine sed) [#/Area] 0-5 /HPF Normal 0-5/HPF [facility] UA Auto SS GROUP A STREP CULTUREon 01-13 S. pyogenes Ag Ql (Unsp spec) Culture Observations: NEGATIVE FOR GROUP A STREPTOCOCCUS. Normal [facility] Comment on above: Performed By: #### I NFLUAB #### [facility] [address] [place] [address] Dr. Manuel Sandhu STREPT SCREENon 02-08-2022 STREP SCREEN A Negative Normal NEGATIVE [facility] Comment on above: Performed By: #### I NFLUAB #### [facility] [address] [place] [address] Dr. Manuel Sandhu CBC AUTO DIFFon 01-30-2022 BASO # 0.1 103/ul Normal 0.0-0.1 [facility] Comment on above: Performed By: #### C BC #### [facility] [address] [place] [address] Dr. Manuel Sandhu Basophils/100 WBC (Bld) 0.4 % Normal 0.2-2.0 [facility] Comment on above: Performed By: #### C BC #### [facility] [address] [place] [address] Dr. Manuel Sandhu EO # 0.4 103/ul Normal 0.0-0.7 [facility] Comment on above: Performed By: #### C BC #### [facility] [address] [place] [address] Dr. Manuel Sandhu Eosinophils/100 WBC (Bld) 3.0 % Normal 0.9-7.0 [facility] Comment on above: Performed By: #### C BC #### [facility] [address] [place] [address] Dr. Manuel Sandhu Erythrocyte distribution width (RBC) [Ratio] 13.3 % Normal 11.0-15.0 [facility] Comment on above: Performed By: #### C BC #### [facility] [address] [place] [address] Dr. Manuel Sandhu Hematocrit (Bld) [Volume fraction] 36.8 % Normal 36.0-48.0 [facility] Comment on above: Performed By: #### C BC #### [facility] [address] [place] [address] Dr. Manuel Sandhu Hemoglobin (Bld) [Mass/Vol] 12.2 g/dL Normal 12.0-16.0 [facility] Comment on above: Performed By: #### C BC #### [facility] [address] [place] [address] Dr. Manuel Sandhu IG # 0.04 10e3/ul Critically high 0.00-0.03 [facility] Comment on above: Performed By: #### C BC #### [facility] [address] [place] [address] Dr. Manuel Sandhu IG % 0.3 % Normal 0.0-0.5 [facility] Comment on above: Performed By: #### C BC #### [facility] [address] [place] [address] Dr. Manuel Sandhu LYMPH # 2.8 103/ul Normal 1.2-3.8 [facility] Comment on above: Performed By: #### C BC #### [facility] [address] [place] [address] Dr. Manuel Sandhu Lymphocytes/100 WBC (Bld) 23.0 % Normal 20.5-60.0 [facility] Comment on above: Performed By: #### C BC #### [facility] [address] [place] [address] Dr. Manuel Sandhu MANUAL DIFF REQ NO Normal [facility] Comment on above: Performed By: #### C BC #### [facility] [address] [place] [address] Dr. Manuel Sandhu MCH (RBC) [Entitic mass] 32.1 pg Normal 26.7-34.0 [facility] Comment on above: Performed By: #### C BC #### [facility] [address] [place] [address] Dr. Manuel Sandhu MCHC (RBC) [Mass/Vol] 33.2 g/dL Normal 29.9-35.2 [facility] Comment on above: Performed By: #### C BC #### [facility] [address] [address] [address] Manuel Sandhu MCV (RBC) [Entitic vol] 96.8 fL Normal 81.0-99.0 [facility] Comment on above: Performed By: #### C BC #### [facility] [address] [address] [address] Manuel Sandhu MONO # 0.7 103/ul Normal 0.3-0.8 [facility] Comment on above: Performed By: #### C BC #### [facility] [address] [address] [address] Manuel Sandhu Monocytes/100 WBC (Bld) 5.6 % Normal 1.7-12.0 [facility] Comment on above: Performed By: #### C BC #### [facility] [address] [place] [address] Dr. Manuel Sandhu NEUT # 8.2 103/ul Critically high 1.4-6.5 [facility] Comment on above: Performed By: #### C BC #### [facility] [address] [place] [address] Dr. Manuel Sandhu Neutrophils/100 WBC (Bld) 67.7 % Normal 43.0-75.0 [facility] Comment on above: Performed By: #### C BC #### [facility] [address] [address] [address] Manuel Sandhu Platelet mean volume (Bld) [Entitic vol] 11.2 fL Normal 9.5-13.5 [facility] Comment on above: Performed By: #### C BC #### [facility] [address] [address] [address] Manuel Sandhu PLT 312 103/ul Normal 150-450 [facility] Comment on above: Performed By: #### C BC #### [facility] [address] [address] [address] Manuel Sandhu RBC 3.80 106/ul Critically low 4.20-5.40 [facility] Comment on above: Performed By: #### C BC #### [facility] [address] [address] [address] Manuel Sandhu WBC 12.1 103/ul Critically high 4.0-11.0 [facility] Comment on above: Performed By: #### C BC #### [facility] [address] [address] [address] Manuel Sandhu Covid-19 PCR ([facility])on 01-12 SARS-CoV-2 (COVID-19) RNA JOSÉ MIGUEL+probe Ql (Unsp spec) Not detected Normal NOT DETECTED [facility] Comment on above: Result Comment: This test is not yet approved or cleared by the [place] FDA. When there are no FDA-approved or cleared tests available, and other criteria are met, FDA can make tests available under an emergency access mechanism called an Emergency Use Authorization (EUA). The EUA for this test is supported by the [place] of Health and Human Service's (HHS's) declaration that circumstances exist to justify the emergency use of in vitro diagnostics for the detection and/or diagnosis of the virus that causes COVID-19. This EUA will remain in effect (meaning this test can be used) for the duration of the COVID-19 declaration justifying emergency of IVDs, unless it is terminated or revoked by FDA (after which the test may no longer be used). When diagnostic testing is negative, the possibility of a false negative should be considered in the context of a patient's recent exposures and the presence of clinical signs and symptoms consistent with SARS-CoV-2. Performed By: #### C VDTBH #### [facility] [address] [place] [address] Dr. Manuel Sandhu DRUG SCREEN RAPID (URINE)on 01-30-2022 AMP Negative Normal NEGATIVE [facility] Comment on above: Performed By: #### U MICRO, ERUR #### [facility] [address] [place] [address] Dr. Manuel Sandhu BAR Negative Normal NEGATIVE [facility] Comment on above: Performed By: #### U MICRO, ERUR #### [facility] [address] [place] [address] Dr. Manuel Sandhu BUP Negative Normal NEGATIVE [facility] Comment on above: Performed By: #### U MICRO, ERUR #### [facility] [address] [address] [address] Manuel Sandhu BZO Negative Normal NEGATIVE [facility] Comment on above: Performed By: #### U MICRO, ERUR #### [facility] [address] [address] [address] Manuel Sandhu WISAM Negative Normal NEGATIVE [facility] Comment on above: Performed By: #### U MICRO, ERUR #### [facility] [address] [address] [address] Manuel Sandhu CUT-OFFS SEE BELOW Normal [facility] Comment on above: Result Comment: AMP (Amphetamine): 500ng/mL, BAR (Barbituates): 200 ng/mL, BZO (Benzodiazepines): 150 ng/mL, BUP (Buprenorphine): 10 ng/mL, WISAM (Cocaine): 150 ng/mL, mAMP (Methamphetamine): 500 ng/mL, MTD (Methadone): 200 ng/mL, OPI (Opiates): 100 ng/mL, OXY (Oxycodone): 100 ng/mL, PCP (Phencyclidine): 25 ng/mL, PPX (Propoxyphene): 300 ng/mL, THC (Cannabinoids): 50 ng/mL, TCA (Trycyclic Antidepressants): 300 ng/mL Performed By: #### U MICRO, ERUR #### [facility] [address] [place] [address] Dr. Manuel Sandhu DRUG CUT HEADER DRUG CLASS TEST SYSTEM CUT-OFF CONCENTRATIONS ARE FOLLOWS: Normal [facility] Comment on above: Performed By: #### U MICRO, ERUR #### [facility] [address] [address] [address] Manuel Sandhu mAMP Negative Normal NEGATIVE [facility] Comment on above: Performed By: #### U MICRO, ERUR #### [facility] [address] [address] [address] Manuel Sandhu MTD Negative Normal NEGATIVE [facility] Comment on above: Performed By: #### U MICRO, ERUR #### [facility] [address] [address] [address] Manuel Sandhu OPI Negative Normal NEGATIVE [facility] Comment on above: Performed By: #### U MICRO, ERUR #### [facility] [address] [address] [address] Manuel Sandhu OXY Negative Normal NEGATIVE [facility] Comment on above: Performed By: #### U MICRO, ERUR #### [facility] [address] [place] [address] Dr. Manuel Sandhu PCP Negative Normal NEGATIVE [facility] Comment on above: Performed By: #### U MICRO, ERUR #### [facility] [address] [address] [address] Manuel Sandhu PPX Negative Normal NEGATIVE [facility] Comment on above: Performed By: #### U MICRO, ERUR #### [facility] [address] [place] [address] Dr. Manuel Sandhu TCA Negative Normal NEGATIVE [facility] Comment on above: Performed By: #### U MICRO, ERUR #### [facility] [address] [place] [address] Dr. Manuel Sandhu THC Negative Normal NEGATIVE [facility] Comment on above: Performed By: #### U MICRO, ERUR #### [facility] [address] [place] [address] Dr. Manuel Sandhu ER URINE PROFILEon 2 Bilirubin Ql (U) Negative Normal NEGATIVE [facility] Comment on above: Performed By: #### U MICRO, ERUR #### [facility] [address] [place] [address] Dr. Manuel Sandhu Clarity (U) CLEAR Normal CLEAR [facility] Comment on above: Performed By: #### U MICRO, ERUR #### [facility] [address] [place] [address] Dr. Manuel Sandhu Color (U) LT. YELLOW Normal YELLOW [facility] Comment on above: Performed By: #### U MICRO, ERUR #### [facility] [address] [place] [address] Dr. Manuel Sandhu ERUAHD A micrscopic examination will be performed if indicated. Normal [facility] Comment on above: Performed By: #### U MICRO, ERUR #### [facility] [address] [address] [address] Manuel Sandhu Glucose Ql (U) Negative Normal NEGATIVE [facility] Comment on above: Performed By: #### U MICRO, ERUR #### [facility] [address] [address] [address] Manuel Sandhu Hemoglobin Ql (U) Negative Normal NEGATIVE [facility] Comment on above: Performed By: #### U MICRO, ERUR #### [facility] [address] [address] [address] Manuel Sandhu Ketones Ql (U) Negative Normal NEGATIVE [facility] Comment on above: Performed By: #### U MICRO, ERUR #### [facility] [address] [place] [address] Dr. Manuel Sandhu LEUKOCYTES Negative Normal NEGATIVE [facility] Comment on above: Performed By: #### U MICRO, ERUR #### [facility] [address] [place] [address] Dr. Manuel Sandhu Nitrite Ql (U) Negative Normal NEGATIVE [facility] Comment on above: Performed By: #### U MICRO, ERUR #### [facility] [address] [place] [address] Dr. Manuel Sandhu pH (U) 5.5 [pH] Normal 5-9 [facility] Comment on above: Performed By: #### U MICRO, ERUR #### [facility] [address] [place] [address] Dr. Manuel Sandhu SPEC GRAVITY <=1.005 Abnormal 1.005-<=1.0 25 [facility] Comment on above: Performed By: #### U MICRO, ERUR #### [facility] [address] [place] [address] Dr. Manuel Sandhu UA PROTEIN Negative Normal NEGATIVE/ TRACE [facility] Comment on above: Performed By: #### U MICRO, ERUR #### [facility] [address] [place] [address] Dr. Manuel Sandhu UR MICRO IND NOT INDICATED Normal [facility] Comment on above: Performed By: #### U MICRO, ERUR #### [facility] [address] [address] [address] Manuel Sandhu Urobilinogen Qn (U) 0.2 {Lucila'U}/dL Normal 0.2 - 1. 0 [facility] Comment on above: Performed By: #### U MICRO, ERUR #### [facility] [address] [address] [address] Manuel Sandhu ETHANOL (BLD ALC)on 01-31-20 22 ALC NOTE NOTE: 80 mg/dl is th e legal limit for a blood alcohol level Normal [facility] Comment on above: Performed By: #### I NFLUAB #### [facility] [address] [place] [address] Dr. Manuel Sandhu Ethanol [Mass/Vol] 47 mg/dL Normal [facility] Comment on above: Performed By: #### I NFLUAB #### [facility] [address] [place] [address] Dr. Manuel Sandhu PREG HCG QUALon 01-30-2022 , QUAL Negative Normal NEGATIVE [facility] Comment on above: Performed By: #### U MICRO, ERUR #### [facility] [address] [place] [address] Dr. Manuel Sandhu PROF 14(COMP METB)on 022 Albumin [Mass/Vol] 3.8 g/dL Normal 3.4-5.0 [facility] Comment on above: Performed By: #### I NFLUAB #### [facility] [address] [place] [address] Dr. Manuel Sandhu Albumin/Globulin [Mass ratio] 1.1 {ratio} Normal [facility] Comment on above: Performed By: #### I NFLUAB #### [facility] [address] [place] [address] Dr. Manuel Sandhu ALP [Catalytic activity/Vol] 88 U/L Normal 46-116 [facility] Comment on above: Performed By: #### I NFLUAB #### [facility] [address] [address] [address] Manuel Sandhu ALT [Catalytic activity/Vol] 30 U/L Normal 14-59 [facility] Comment on above: Performed By: #### I NFLUAB #### [facility] [address] [address] [address] Manuel Sandhu Anion gap [Moles/Vol] 17.3 mmol/L Normal [facility] Comment on above: Performed By: #### I NFLUAB #### [facility] [facility] [address] [address] [address] Manuel Sandhu AST [Catalytic activity/Vol] 17 U/L Normal 15-37 [facility] Comment on above: Performed By: #### I NFLUAB #### [facility] [address] [place] [address] Dr. Manuel Sandhu Bilirubin [Mass/Vol] 0.2 mg/dL Normal 0.2-1.0 [facility] Comment on above: Performed By: #### I NFLUAB #### [facility] [address] [address] [address] Manuel Sandhu Calcium [Mass/Vol] 8.9 mg/dL Normal 8.5-10.1 [facility] Comment on above: Performed By: #### I NFLUAB #### [facility] [address] [address] [address] Manuel Sandhu Chloride [Moles/Vol] 109 mmol/L Critically high 98-107 [facility] Comment on above: Performed By: #### I NFLUAB #### [facility] [address] [address] [address] Manuel Sandhu CO2 [Moles/Vol] 20.2 mmol/L Critically low 21.0-32.0 [facility] Comment on above: Performed By: #### I NFLUAB #### [facility] [address] [address] [address] Manuel Sandhu Creatinine [Mass/Vol] 0.69 mg/dL Normal 0.55-1.02 [facility] Comment on above: Performed By: #### I NFLUAB #### [facility] [address] [address] [address] Manuel Sandhu EGFR-AF EQUATORIAL GUINEAN >60 Normal >=60 [facility] Comment on above: Performed By: #### I NFLUAB #### [facility] [address] [address] [address] Manuel Sandhu EGFR-NON AF EQUATORIAL GUINEAN >60 Normal >=60 [facility] Comment on above: Performed By: #### I NFLUAB #### [facility] [address] [address] [address] Manuel Sandhu Globulin (S) [Mass/Vol] 3.6 g/dL Normal T [facility] Comment on above: Performed By: #### I NFLUAB #### [facility] [address] [address] [address] Manuel Sandhu Glucose [Mass/Vol] 79 mg/dL Normal 74-106 [facility] Comment on above: Performed By: #### I NFLUAB #### [facility] [address] [address] [address] Manuel Sandhu Potassium [Moles/Vol] 3.5 mmol/L Normal 3.5-5.1 [facility] Comment on above: Performed By: #### I NFLUAB #### [facility] [address] [place] [address] Dr. Manuel Sandhu Protein [Mass/Vol] 7.4 g/dL Normal 6.4-8.2 [facility] Comment on above: Performed By: #### I NFLUAB #### [facility] [address] [address] [address] Manuel Sandhu Sodium [Moles/Vol] 143 mmol/L Normal 136-145 [facility] Comment on above: Performed By: #### I NFLUAB #### [facility] [address] [address] [address] Manuel Sandhu Urea nitrogen [Mass/Vol] 18.0 mg/dL Normal 7.0-18.0 [facility] Comment on above: Performed By: #### I NFLUAB #### [facility] [address] [place] [address] Dr. Manuel Sandhu Urea nitrogen/Creatinine [Mass ratio] 26.1 mg/mg Normal [facility] Comment on above: Performed By: #### I NFLUAB #### [facility] [address] [place] [address] Dr. Manuel Sandhu AMYLASEon 11-16-2021 Amylase [Catalytic activity/Vol] 60 U/L Normal 31-110 [facility] Comment on above: Performed By: #### C MP, JENNIE, LIPA #### [facility] [address] [place] [address] Dr. Manuel Sandhu CBC AUTO DIFFon 11-16-2021 BASO # 0.1 103/ul Normal 0.0-0.1 [facility] Comment on above: Performed By: #### C MP, JENNIE, LIPA #### [facility] [address] [place] [address] Dr. Manuel Sandhu Basophils/100 WBC (Bld) 0.5 % Normal 0.2-2.0 [facility] Comment on above: Performed By: #### C MP, JENNIE, LIPA #### [facility] [address] [place] [address] Dr. Manuel Sandhu EO # 0.3 103/ul Normal 0.0-0.7 [facility] Comment on above: Performed By: #### C MP, JENNIE, LIPA #### [facility] [address] [place] [address] Dr. Manuel Sandhu Eosinophils/100 WBC (Bld) 3.1 % Normal 0.9-7.0 [facility] Comment on above: Performed By: #### C MP, JENNIE, LIPA #### [facility] [address] [place] [address] Dr. Manuel Sandhu Erythrocyte distribution width (RBC) [Ratio] 13.4 % Normal 11.0-15.0 [facility] Comment on above: Performed By: #### C MP, JENNIE, LIPA #### [facility] [address] [place] [address] Dr. Manuel Sandhu Hematocrit (Bld) [Volume fraction] 39.0 % Normal 36.0-48.0 [facility] Comment on above: Performed By: #### C JENNIE PATRICK LIPA #### [facility] [address] [place] [address] Dr. Manuel Sandhu Hemoglobin (Bld) [Mass/Vol] 12.8 g/dL Normal 12.0-16.0 [facility] Comment on above: Performed By: #### C JENNIE PATRICK LIPA #### [facility] [address] [place] [address] Dr. Manuel Sandhu IG # 0.03 10e3/ul Normal 0.00-0.03 [facility] Comment on above: Performed By: #### C JENNIE PATRICK LIPA #### [facility] [address] [place] [address] Dr. Manuel Sandhu IG % 0.3 % Normal 0.0-0.5 [facility] Comment on above: Performed By: #### C JENNIE PATRICK LIPA #### [facility] [address] [place] [address] Dr. Manuel Sandhu LYMPH # 2.8 103/ul Normal 1.2-3.8 [facility] Comment on above: Performed By: #### C JENNIE PATRICK LIPA #### [facility] [address] [place] [address] Dr. Manuel Sandhu Lymphocytes/100 WBC (Bld) 29.9 % Normal 20.5-60.0 [facility] Comment on above: Performed By: #### C JENNIE PATRICK LIPA #### [facility] [address] [place] [address] Dr. Manuel Sandhu MANUAL DIFF REQ NO Normal [facility] Comment on above: Performed By: #### C JENNIE PATRICK LIPA #### [facility] [address] [place] [address] Dr. Manuel Sandhu MCH (RBC) [Entitic mass] 32.2 pg Normal 26.7-34.0 [facility] Comment on above: Performed By: #### C JENNIE PATRICK LIPA #### [facility] [address] [place] [address] Dr. Manuel Sandhu MCHC (RBC) [Mass/Vol] 32.8 g/dL Normal 29.9-35.2 [facility] Comment on above: Performed By: #### C MP, JENNIE, LIPA #### [facility] [address] [place] [address] Dr. Manuel Sandhu MCV (RBC) [Entitic vol] 98.0 fL Normal 81.0-99.0 [facility] Comment on above: Performed By: #### C MP, JENNIE, LIPA #### [facility] [address] [place] [address] Dr. Manuel Sandhu MONO # 0.7 103/ul Normal 0.3-0.8 [facility] Comment on above: Performed By: #### C MP, JENNIE, LIPA #### [facility] [address] [place] [address] Dr. Manuel Sandhu Monocytes/100 WBC (Bld) 7.7 % Normal 1.7-12.0 [facility] Comment on above: Performed By: #### C MP, JENNIE, LIPA #### [facility] [address] [place] [address] Dr. Manuel Sandhu NEUT # 5.5 103/ul Normal 1.4-6.5 [facility] Comment on above: Performed By: #### C MP, JENNIE, LIPA #### [facility] [address] [place] [address] Dr. Manuel Sandhu Neutrophils/100 WBC (Bld) 58.5 % Normal 43.0-75.0 [facility] Comment on above: Performed By: #### C MP, JENNIE, LIPA #### [facility] [address] [place] [address] Dr. Manuel Sandhu Platelet mean volume (Bld) [Entitic vol] 11.7 fL Normal 9.5-13.5 [facility] Comment on above: Performed By: #### C MP, JENNIE, LIPA #### [facility] [address] [place] [address] Dr. Manuel Sandhu PLT 301 103/ul Normal 150-450 [facility] Comment on above: Performed By: #### C CELINA JENNIE, LIPA #### [facility] [address] [place], [place] [address] Dr. Manuel Sandhu RBC 3.98 106/ul Critically low 4.20-5.40 [facility] Comment on above: Performed By: #### C CELINA JENNIE, LIPA #### [facility] [address] [place], [place] [address] Dr. Manuel Sandhu WBC 9.3 103/ul Normal 4.0-11.0 [facility] Comment on above: Performed By: #### C CELINA JENNIE, LIPA #### [facility] [address] [place], [place] [address] ABD/PELVIS WO CONon 11-16 CT ABD/PELVIS WO CON EXAMINATION: CT ABD/PELVIS WO CON, 11/16/2021 6:41 PM EST HISTORY: UNSPECIFIED ABDOMINAL PAIN COMPARISON: CT abdomen/pelvis dated 03/29/2021. TECHNIQUE: CT scan of the abdomen and pelvis was performed without IV contrast. CT dose reduction technique was used, including Automated Exposure Control. FINDINGS: Lung bases are clear. Heart size is normal. The visualized liver, spleen, pancreas and bilateral adrenal glands appear unremarkable on this noncontrast examination. Stable appearing distended gallbladder is seen. No calcified gallstone is seen. No significant gallbladder wall thickening is seen. No significant intrahepatic or extrahepatic biliary dilatation is seen. Bilateral kidneys have an unremarkable noncontrast appearance. There is no evidence for nephrolithiasis or hydronephrosis bilaterally. No ureteral calculus is seen bilaterally. The urinary bladder appears unremarkable. Postsurgical changes with surgical sutures are seen about the stomach and proximal small bowel abdomen, suggestive of prior gastric bypass surgery. Nonobstructive bowel pattern is seen. Normal-appearing appendix is visualized. Large volume of stool is seen throughout the colon. Small air-fluid levels are seen within nondistended loops of small bowel. No significant bowel wall thickening is seen. No significant free fluid is seen in the abdomen and pelvis. Approximately 4 x 3 x 2 cm (CC x transverse x AP) low density suggestive of cystic structure is seen in the mesentery anterior and inferior to the pancreas, which appears mildly increased in size since prior examination of 11/22/2020. A mesenteric cyst is considered. However, for better evaluation and if additional imaging is desired, abdominal MRI with and without contrast may be considered for further evaluation. A normal fat plane is likely seen between this structure and adjacent pancreas. The visceral structures demonstrate normal caliber. The abdominal wall and visualized soft tissues appear unremarkable. Stable appearing moderate anterolisthesis of L5 vertebral body is seen related to S1. Mild loss of intervertebral disc height is also seen at the L5-S1 level. IMPRESSION: No evidence for acute abnormality on this noncontrast examination. There are stable appearing distended gallbladder. No gallstone is seen. Large volume of stool is seen throughout the colon. Prior gastric bypass surgery. Approximately 4 x 3 x 2 cm (CC x transverse x AP) low density suggestive of cystic structure is seen in the mesentery anterior and inferior to the pancreas, which appears mildly increased in size since prior examination of 11/22/2020. A mesenteric cyst is considered. However, for better evaluation and if additional imaging is desired, abdominal MRI with and without contrast may be considered for further evaluation. A normal fat plane is likely seen between this structure and adjacent pancreas. Electronically authenticated by: HARMONY HARRELL Date: 2021-11-16 19:55 Normal [facility] ER URINE PROFILEon 2 Bilirubin Ql (U) Negative Normal NEGATIVE [facility] Comment on above: Performed By: #### C CELINA JENNIE, LIPA #### [facility] [address] [place] [address] Dr. Manuel Sandhu Clarity (U) CLEAR Normal CLEAR [facility] Comment on above: Performed By: #### C CELINA JENNIE, LIPA #### [facility] [address] [place] [address] Dr. Manuel Sandhu Color (U) LT. YELLOW Normal YELLOW [facility] Comment on above: Performed By: #### C CELINA JENNIE, LIPA #### [facility] [address] [place] [address] Dr. Manuel Sandhu ERUAHD A micrscopic examination will be performed if indicated. Normal [facility] Comment on above: Performed By: #### C MP JENNIE, LIPA #### [facility] [address] [place] [address] Dr. Manuel Sandhu Glucose Ql (U) Negative Normal NEGATIVE [facility] Comment on above: Performed By: #### C MP, JENNIE, LIPA #### [facility] [address] [place] [address] Dr. Manuel Sandhu Hemoglobin Ql (U) Negative Normal NEGATIVE [facility] Comment on above: Performed By: #### C MP, JENNIE, LIPA #### [facility] [address] [address] [address] Manuel Sandhu Ketones Ql (U) Negative Normal NEGATIVE [facility] Comment on above: Performed By: #### C MP, JENNIE, LIPA #### [facility] [address] [place] [address] Dr. Manuel Sandhu LEUKOCYTES Negative Normal NEGATIVE [facility] Comment on above: Performed By: #### C MP, JENNIE, LIPA #### [facility] [address] [place] [address] Dr. Manuel Sandhu Nitrite Ql (U) Negative Normal NEGATIVE [facility] Comment on above: Performed By: #### C MP, JENNIE, LIPA #### [facility] [address] [place] [address] Dr. Manuel Sandhu pH (U) 7.0 [pH] Normal 5-9 [facility] Comment on above: Performed By: #### C MP, JENNIE, LIPA #### [facility] [address] [place] [address] Dr. Manuel Sandhu SPEC GRAVITY <=1.005 Abnormal 1.005-<=1.[address] [place] [address] Comment on above: Performed By: #### C MP, JENNIE, LIPA #### [facility] [address] [place] [address] Dr. Manuel Sandhu UA PROTEIN Negative Normal NEGATIVE/ TRACE [facility] Comment on above: Performed By: #### C MP, JENNIE, LIPA #### [facility] [address] [place] [address] Dr. Manuel Sandhu UR MICRO IND NOT INDICATED Normal [facility] Comment on above: Performed By: #### C MP, JENNIE, LIPA #### [facility] [address] [place] [address] Dr. Manuel Sandhu Urobilinogen Qn (U) 0.2 {Lucila'U}/dL Normal 0.2 - 1. 0 [facility] Comment on above: Performed By: #### C MP, JENNIE, LIPA #### [facility] [address] [place] [address] Dr. Manuel Sandhu LIPASEon 11-16-2021 Lipase [Catalytic activity/Vol] 78.0 U/L Normal 23.0-300.0 [facility] Comment on above: Performed By: #### C CELINA JENNIE, LIPA #### [facility] [address] [place] [address] Dr. Manuel Sandhu URon 11-16-2021 , QUAL Negative Normal NEGATIVE [facility] Comment on above: Performed By: #### C CELINA JENNIE, LIPA #### [facility] [address] [place] [address] Dr. Manuel Sandhu PROF 14(COMP METB)on 022 Albumin [Mass/Vol] 4.1 g/dL Normal 3.5-5.0 [facility] Comment on above: Performed By: #### C CELINA JENNIE, LIPA #### [facility] [address] [place] [address] Dr. Manuel Sandhu Albumin/Globulin [Mass ratio] 1.1 {ratio} Normal [facility] Comment on above: Performed By: #### C MP, JENNIE, LIPA #### [facility] [address] [place] [address] Dr. Manuel Sandhu ALP [Catalytic activity/Vol] 102 U/L Normal 38-126 [facility] Comment on above: Performed By: #### C MP, JENNIE, LIPA #### [facility] [address] [place] [address] Dr. Manuel Sandhu ALT [Catalytic activity/Vol] 39 U/L Normal 9-52 [facility] Comment on above: Performed By: #### C MP, JENNIE, LIPA #### [facility] [address] [address] [address] Manuel Sandhu Anion gap [Moles/Vol] 11.5 mmol/L Normal [facility] Comment on above: Performed By: #### C MP, JENNIE, LIPA #### [facility] [address] [address] [address] Manuel Sandhu AST [Catalytic activity/Vol] 28 U/L Normal 14-36 [facility] Comment on above: Performed By: #### C MP, JENNIE, LIPA #### [facility] [address] [address] [address] Manuel Sandhu Bilirubin [Mass/Vol] 0.2 mg/dL Normal 0.2-1.3 [facility] Comment on above: Performed By: #### C MP, JENNIE, LIPA #### [facility] [address] [address] [address] Manuel Sandhu Calcium [Mass/Vol] 9.1 mg/dL Normal 8.4-10.2 [facility] Comment on above: Performed By: #### C MP, JENNIE, LIPA #### [facility] [address] [address] [address] Manuel aSndhu Chloride [Moles/Vol] 105 mmol/L Normal 98-107 [facility] Comment on above: Performed By: #### C MP, JENNIE, LIPA #### [facility] [address] [address] [address] Manuel Sandhu CO2 [Moles/Vol] 25.0 mmol/L Normal 22.0-30.0 [facility] Comment on above: Performed By: #### C MP, JENNIE, LIPA #### [facility] [address] [address] [address] Manuel Sandhu Creatinine [Mass/Vol] 0.77 mg/dL Normal 0.52-1.04 [facility] Comment on above: Performed By: #### C MP, JENNIE, LIPA #### [facility] [address] [address] [address] Manuel Sandhu EGFR-AF EQUATORIAL GUINEAN >60 Normal >=60 [facility] Comment on above: Performed By: #### C MP, JENNIE, LIPA #### [facility] [address] [address] [address] Manuel Sandhu EGFR-NON AF EQUATORIAL GUINEAN >60 Normal >=60 [facility] Comment on above: Performed By: #### C MP, JENNIE, LIPA #### [facility] [address] [address] [address] Manuel Sandhu Globulin (S) [Mass/Vol] 3.8 g/dL Normal T [facility] Comment on above: Performed By: #### C MP, JENNIE, LIPA #### [facility] [address] [address] [address] Manuel Sandhu Glucose [Mass/Vol] 85 mg/dL Normal 74-106 [facility] Comment on above: Performed By: #### C MP, JENNIE, LIPA #### [facility] [address] [place] [address] Dr. Manuel Sandhu Potassium [Moles/Vol] 3.5 mmol/L Normal 3.4-5.0 [facility] Comment on above: Performed By: #### C MP, JENNIE, LIPA #### [facility] [address] [place] [address] Dr. Manuel Sandhu Protein [Mass/Vol] 7.9 g/dL Normal 6.1-8.2 [facility] Comment on above: Performed By: #### C MP, JENNIE, LIPA #### [facility] [address] [place] [address] Dr. Manuel Sandhu Sodium [Moles/Vol] 138 mmol/L Normal 137-145 [facility] Comment on above: Performed By: #### C MP, JENNIE, LIPA #### [facility] [address] [place] [address] Dr. Manuel Sandhu Urea nitrogen [Mass/Vol] 18.0 mg/dL Critically high 7.0-17.0 [facility] Comment on above: Performed By: #### C MP, JENNIE, LIPA #### [facility] [address] [place] [address] Dr. Manuel Sandhu Urea nitrogen/Creatinine [Mass ratio] 23.4 mg/mg Normal [facility] Comment on above: Performed By: #### C JENNIE PATRICK LIPA #### [facility] [address] [place], [place] [address] ABDOMEN PELVIS W IV CONTR AST Additional Contrast? OralOrdered By: Gamaliel Harris on 02-04-2021 1. Partially improve d focal inflammatory process in the left upper quadrant mesentery and proximal small bowel loops. The previously seen fluid collection is no longer identified. Consider follow-up CT abdomen and pelvis in 2-3 months to assure complete resolution. 2. Status post Tian-en-Y gastric bypass. No bowel obstruction. 3. A few small hypodensities are noted in the liver, which are nonspecific, possibly focal fatty infiltration. Attention on follow-up imaging. 4. Mildly distended gallbladder. No cholelithiasis or pericholecystic inflammatory change. 5. Small amount of free fluid in the pelvis, which could be physiologic. [employer] Phone: EXAMINATION: CT OF THE ABDOMEN AND PELVIS WITH CONTRAST 02/04/2021 1:00 pm TECHNIQUE: CT of the abdomen and pelvis was performed with the administration of intravenous contrast. Multiplanar reformatted images are provided for review. Dose modulation, iterative reconstruction, and/or weight based adjustment of the mA/kV was utilized to reduce the radiation dose to as low as reasonably achievable. COMPARISON: CT abdomen and pelvis dated 01/30/2021 HISTORY: ORDERING SYSTEM PROVIDED HISTORY: Omental infarction (HCC) TECHNOLOGIST PROVIDED HISTORY: Tian-en-Y gastric bypass on 01/07/2021 FINDINGS: Lower Chest: Visualized portion of the lower chest demonstrates no acute abnormality. Organs: There is a nonspecific 1.4 x 0.8 cm hypodensity at the upper central liver, which is unchanged. Foci of hypodensity are also noted at the anterior liver along the falciform ligament, which are unchanged. Gallbladder is mildly distended. No visible cholelithiasis or pericholecystic inflammatory change. Spleen is unremarkable. Pancreas and adrenal glands are within normal limits. There is symmetric enhancement of the kidneys. No hydronephrosis or perinephric inflammation. GI/Bowel: Evidence of Tian-en-Y gastric bypass surgery is again noted. Previously noted thickened proximal jejunal loops are mildly improved. Subjacent mesenteric stranding is partially improved as well. The previously seen fluid collection adjacent to proximal jejunal loops is no longer identified. There is no abnormal bowel distention. There are some mildly prominent mesenteric lymph nodes in this location, which have improved as well. No focal pericolonic inflammation. No free air. Appendix is not seen. There is a small amount of free fluid in the pelvis. Pelvis: Urinary bladder is unremarkable. Uterus and adnexal structures are within normal limits for the patient's age. No pelvic lymphadenopathy. Peritoneum/Retroperit oneum: Abdominal aorta is normal in caliber. No retroperitoneal lymphadenopathy. Bones/Soft Tissues: There is mild stranding in the midline and left upper abdominal wall subcutaneous fat. No fluid collection or gas in the subcutaneous fat. No acute or suspicious osseous abnormality. 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 [employer] Phone: Dario, [facility] Incoming Radiant Results From [employer] - 02/04/2021 4:32 PM EDT EXAMINATION: CT OF THE ABDOMEN AND PELVIS WITH CONTRAST 02/04/2021 1:00 pm TECHNIQUE: CT of the abdomen and pelvis was performed with the administration of intravenous contrast. Multiplanar reformatted images are provided for review. Dose modulation, iterative reconstruction, and/or weight based adjustment of the mA/kV was utilized to reduce the radiation dose to as low as reasonably achievable. COMPARISON: CT abdomen and pelvis dated 01/30/2021 HISTORY: ORDERING SYSTEM PROVIDED HISTORY: Omental infarction (HCC) TECHNOLOGIST PROVIDED HISTORY: Tian-en-Y gastric bypass on 01/07/2021 FINDINGS: Lower Chest: Visualized portion of the lower chest demonstrates no acute abnormality. Organs: There is a nonspecific 1.4 x 0.8 cm hypodensity at the upper central liver, which is unchanged. Foci of hypodensity are also noted at the anterior liver along the falciform ligament, which are unchanged. Gallbladder is mildly distended. No visible cholelithiasis or pericholecystic inflammatory change. Spleen is unremarkable. Pancreas and adrenal glands are within normal limits. There is symmetric enhancement of the kidneys. No hydronephrosis or perinephric inflammation. GI/Bowel: Evidence of Tian-en-Y gastric bypass surgery is again noted. Previously noted thickened proximal jejunal loops are mildly improved. Subjacent mesenteric stranding is partially improved as well. The previously seen fluid collection adjacent to proximal jejunal loops is no longer identified. There is no abnormal bowel distention. There are some mildly prominent mesenteric lymph nodes in this location, which have improved as well. No focal pericolonic inflammation. No free air. Appendix is not seen. There is a small amount of free fluid in the pelvis. Pelvis: Urinary bladder is unremarkable. Uterus and adnexal structures are within normal limits for the patient's age. No pelvic lymphadenopathy. Peritoneum/Retroperit oneum: Abdominal aorta is normal in caliber. No retroperitoneal lymphadenopathy. Bones/Soft Tissues: There is mild stranding in the midline and left upper abdominal wall subcutaneous fat. No fluid collection or gas in the subcutaneous fat. No acute or suspicious osseous abnormality. 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 IMPRESSION: 1. Partially improved focal inflammatory process in the left upper quadrant mesentery and proximal small bowel loops. The previously seen fluid collection is no longer identified. Consider follow-up CT abdomen and pelvis in 2-3 months to assure complete resolution. 2. Status post Tian-en-Y gastric bypass. No bowel obstruction. 3. A few small hypodensities are noted in the liver, which are nonspecific, possibly focal fatty infiltration. Attention on follow-up imaging. 4. Mildly distended gallbladder. No cholelithiasis or pericholecystic inflammatory change. 5. Small amount of free fluid in the pelvis, which could be physiologic. [employer] Phone: [employer] Phone: Basic Metabolic Panel w/ Ref brannon to MGOrdered By: Ruiz Joel on 02-01-2021 Anion gap [Moles/Vol] 15 mmol/L 9 - 17 mmol/L [employer] Phone: Calcium [Mass/Vol] 8.5 mg/dL Low 8.6 - 10. 4 mg/dL [employer] Phone: Chloride [Moles/Vol] 107 mmol/L 98 - 10 7 mmol/L [employer] Phone: CO2 [Moles/Vol] 16 mmol/L Low 20 - 31 mmol/L [employer] Phone: Creatinine [Mass/Vol] 0.36 mg/dL Low 0.50 - 0.90 mg/dL [employer] Phone: GFR >60 >60 mL/min [employer] Phone: GFR Non- >60 >60 mL/min [employer] Phone: GFR/1.73 sq M.predicted MDRD (S/P/Bld) [Vol rate/Area] [employer] Phone: Comment on above: Average GFR for 30-3 9 years old: 107 mL/min/1.73sq m Chronic Kidney Disease: <60 mL/min/1.73sq m Kidney failure: <15 mL/min/1.73sq m eGFR calculated using average adult body mass. Additional eGFR calculator available at: http://www.[employer]/multiple_crcl_2012.htm GFR/1.73 sq M.predicted MDRD (S/P/Bld) [Vol rate/Area] NOT REPORTED [employer] Phone: Glucose [Mass/Vol] 79 mg/dL 70 - 99 mg/dL [employer] Phone: Interpretation and review of laboratory results Abnormal [employer] Phone: Potassium [Moles/Vol] 3.7 mmol/L 3.7 - 5.3 mmol/L [employer] Phone: Sodium [Moles/Vol] 138 mmol/L 135 - 144 mmol/L [employer] Phone: Urea nitrogen (BldV) [Mass/Vol] 2 mg/dL Low 6 - 20 mg/dL [employer] Phone: Urea nitrogen/Creatinine (Bld) [Mass ratio] NOT REPORTED [employer] Phone: [employer] Work Phone: CBC WITH AUTO DIFFERENTIALOr dered By: Ruiz Joel on 02-01-2021 Absolute Eos # 0.28 [facility] Work Phone: Absolute Immature Granulocyte 0.06 [employer] Work Phone: Absolute Lymph # 1.62 [facility] Work Phone: Absolute Hartley # 1.46 [employer] [facility] Work Phone: Basophils (Bld) [#/Vol] 0.04 10*3/uL [employer] Work Phone: Basophils/100 WBC (Bld) 0 % 0 - 2 % [facility] Work Phone: Differential Type NOT REPORTED [employer] Phone: Eosinophils/100 WBC (Bld) 3 % 1 - 4 % [employer] Phone: Hematocrit (Bld) [Volume fraction] 33.7 % Low 36.3 - 47.1 % [employer] Phone: Hemoglobin.gastrointest inal spec 1 Ql (Stl) 10.3 g/dL Low 11.9 - 15.1 g/dL [employer] Phone: Immature granulocytes/100 WBC (Bld) 1 % High 0 [employer] Work Phone: Interpretation and review of laboratory results Abnormal [employer] Phone: Lymphocytes/100 WBC (Bld) 14 % Low 24 - 43 % [employer] Phone: MCH (RBC) [Entitic mass] 29.9 pg 25.2 - 33.5 pg [employer] Phone: MCHC (RBC) [Mass/Vol] 30.6 g/dL 28.4 - 34.8 g/dL [employer] Work Phone: MCV (RBC) [Entitic vol] 98.0 fL 82.6 - 102.9 fL [employer] Phone: Monocytes/100 WBC (Bld) 13 % High 3 - 12 % [facility] Work Phone: NRBC Automated 0.0 0.0 per 100 WBC [employer] Phone: Platelet distribution width (Bld) [Ratio] 13.4 % 11.8 - 14.4 % [employer] Phone: Platelet Estimate NOT REPORTED [employer] Phone: Platelet mean volume (Bld) [Entitic vol] 11.6 fL 8.1 - 13.5 fL [employer] Phone: Platelets (Bld) [#/Vol] 392 10*3/uL [employer] Phone: RBC (Bld) [#/Vol] 3.44 10*6/uL Low 3.95 - 5.1 1 m/uL [employer] Work Phone: RBC (Bld) [#/Vol] NOT REPORTED [employer] Phone: Segmented neutrophils/100 WBC (Bld) 69 % High 36 - 65 % [employer] Phone: Segs [employer] Work Phone: WBC (Bld) [#/Vol] 11.3 10*3/uL [employer] Work Phone: WBC (Bld) [#/Vol] NOT REPORTED [employer] Phone: [employer] Work Phone: Basic Metabolic Panel w/ Ref brannon to MGOrdered By: Nicolasa Le on 01-31-2021 Anion gap [Moles/Vol] 17 mmol/L 9 - 17 mmol/L [employer] Phone: Calcium [Mass/Vol] 8.7 mg/dL 8.6 - 10. 4 mg/dL [employer] Phone: Chloride [Moles/Vol] 105 mmol/L 98 - 10 7 mmol/L [employer] Phone: CO2 [Moles/Vol] 15 mmol/L Low 20 - 31 mmol/L [employer] Phone: Creatinine [Mass/Vol] 0.36 mg/dL Low 0.50 - 0.90 mg/dL [employer] Phone: GFR >60 >60 mL/min [employer] Phone: GFR Non- >60 >60 mL/min [employer] Phone: GFR/1.73 sq M.predicted MDRD (S/P/Bld) [Vol rate/Area] [employer] Phone: Comment on above: Average GFR for 30-3 9 years old: 107 mL/min/1.73sq m Chronic Kidney Disease: <60 mL/min/1.73sq m Kidney failure: <15 mL/min/1.73sq m eGFR calculated using average adult body mass. Additional eGFR calculator available at: http://www.[employer]/multiple_crcl_2012.htm GFR/1.73 sq M.predicted MDRD (S/P/Bld) [Vol rate/Area] NOT REPORTED [employer] Phone: Glucose [Mass/Vol] 78 mg/dL 70 - 99 mg/dL [employer] Phone: Interpretation and review of laboratory results Abnormal [employer] Phone: Potassium [Moles/Vol] 3.8 mmol/L 3.7 - 5.3 mmol/L [employer] Phone: Sodium [Moles/Vol] 137 mmol/L 135 - 144 mmol/L [employer] Phone: Urea nitrogen (BldV) [Mass/Vol] 3 mg/dL Low 6 - 20 mg/dL [employer] Phone: Urea nitrogen/Creatinine (Bld) [Mass ratio] NOT REPORTED [employer] Phone: [employer] Phone: CBC auto differentialOrdered By: Nicolasa Le on 01-31-2021 Absolute Eos # 0.30 [facility] Work Phone: Absolute Immature Granulocyte 0.15 [employer] Work Phone: Absolute Lymph # 2.10 [facility] Work Phone: Absolute Hartley # 2.25 High [facility] Work Phone: Basophils (Bld) [#/Vol] 0.00 10*3/uL [employer] Phone: Basophils/100 WBC (Bld) 0 % 0 - 2 % [facility] Work Phone: Differential Type NOT REPORTED [employer] Phone: Eosinophils/100 WBC (Bld) 2 % 1 - 4 % [employer] Phone: Hematocrit (Bld) [Volume fraction] 35.7 % Low 36.3 - 47.1 % [employer] Phone: Hemoglobin.gastrointest inal spec 1 Ql (Stl) 10.8 g/dL Low 11.9 - 15.1 g/dL [employer] Phone: Immature granulocytes/100 WBC (Bld) 1 % High 0 [employer] Phone: Interpretation and review of laboratory results Abnormal [employer] Phone: Lymphocytes/100 WBC (Bld) 14 % Low 24 - 43 % [employer] Phone: MCH (RBC) [Entitic mass] 29.9 pg 25.2 - 33.5 pg [employer] Phone: MCHC (RBC) [Mass/Vol] 30.3 g/dL 28.4 - 34.8 g/dL [employer] Phone: MCV (RBC) [Entitic vol] 98.9 fL 82.6 - 102.9 fL [employer] Phone: Monocytes/100 WBC (Bld) 15 % High 3 - 12 % [facility] Phone: Morphology Celso (Bld) [Interp] Normal [employer] Phone: NRBC Automated 0.0 0.0 per 100 WBC [employer] Phone: Platelet distribution width (Bld) [Ratio] 13.5 % 11.8 - 14.4 % [employer] Phone: Platelet Estimate NOT REPORTED [employer] Phone: Platelet mean volume (Bld) [Entitic vol] 11.6 fL 8.1 - 13.5 fL [employer] Phone: Platelets (Bld) [#/Vol] 375 10*3/uL [employer] Phone: RBC (Bld) [#/Vol] 3.61 10*6/uL Low 3.95 - 5.1 1 m/uL [employer] Phone: RBC (Bld) [#/Vol] NOT REPORTED [employer] Phone: Segmented neutrophils/100 WBC (Bld) 68 % High 36 - 65 % [employer] Phone: Segs Absolute 10[employer]20 [employer] Work Phone: WBC (Bld) [#/Vol] 15.0 10*3/uL High [employer] Phone: WBC (Bld) [#/Vol] NOT REPORTED [employer] Phone: [employer] Work Phone: CBC Auto DifferentialOrdered By: David Nash on 01-30-2021 Absolute Eos # 0.21 [facility] Work Phone: Absolute Immature Granulocyte 0.04 [employer] Work Phone: Absolute Lymph # 1.88 [employer] [facility] Work Phone: Absolute Hartley # 1.43 [employer] [facility] Work Phone: Basophils (Bld) [#/Vol] 0.04 10*3/uL [employer] Work Phone: Basophils/100 WBC (Bld) 0 % 0 - 2 % [facility] Phone: Differential Type NOT REPORTED [employer] Phone: Eosinophils/100 WBC (Bld) 2 % 1 - 4 % [facility] Phone: Hematocrit (Bld) [Volume fraction] 36.2 % Low 36.3 - 47.1 % [employer] Phone: Hemoglobin.gastrointest inal spec 1 Ql (Stl) 11.7 g/dL Low 11.9 - 15.1 g/dL [employer] Phone: Immature granulocytes/100 WBC (Bld) 0 % 0 [employer] Phone: Interpretation and review of laboratory results Abnormal [employer] Phone: Lymphocytes/100 WBC (Bld) 15 % Low 24 - 43 % [employer] Phone: MCH (RBC) [Entitic mass] 30.3 pg 25.2 - 33.5 pg [employer] Phone: MCHC (RBC) [Mass/Vol] 32.3 g/dL 28.4 - 34.8 g/dL [employer] Phone: MCV (RBC) [Entitic vol] 93.8 fL 82.6 - 102.9 fL [employer] Phone: Monocytes/100 WBC (Bld) 12 % 3 - 12 % M [employer] Work Phone: NRBC Automated 0.0 0.0 per 100 WBC [employer] Phone: Platelet distribution width (Bld) [Ratio] 13.2 % 11.8 - 14.4 % [employer] Phone: Platelet Estimate NOT REPORTED [employer] Phone: Platelet mean volume (Bld) [Entitic vol] 11.6 fL 8.1 - 13.5 fL [employer] Phone: Platelets (Bld) [#/Vol] 414 10*3/uL [employer] Phone: RBC (Bld) [#/Vol] 3.86 10*6/uL Low 3.95 - 5.1 1 m/uL [employer] Work Phone: RBC (Bld) [#/Vol] NOT REPORTED [employer] Phone: Segmented neutrophils/100 WBC (Bld) 71 % High 36 - 65 % [employer] Phone: Segs [employer] Work Phone: WBC (Bld) [#/Vol] 12.4 10*3/uL [employer] Work Phone: WBC (Bld) [#/Vol] NOT REPORTED [employer] Phone: [employer] Phone: CT ABDOMEN PELVIS W IV CONTR AST Additional Contrast? OralOrdered By: David Nash on 01-30-2021 Postoperative change s were noted from partial gastrectomy. Sigmoid colon diverticulosis without diverticulitis. Several loops proximal jejunitis was noted manifested by wall thickening and adjacent mesenteric fat inflammation. A small jejunal serosal abscess was noted measuring 3.2 x 2.4 cm. Small amount of free fluid in the cul-de-sac, probably physiologic. 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 [employer] Phone: EXAMINATION: CT OF THE ABDOMEN AND PELVIS WITH CONTRAST 01/30/2021 10:36 am TECHNIQUE: CT of the abdomen and pelvis was performed with the administration of intravenous contrast. Multiplanar reformatted images are provided for review. Dose modulation, iterative reconstruction, and/or weight based adjustment of the mA/kV was utilized to reduce the radiation dose to as low as reasonably achievable. COMPARISON: None. HISTORY: ORDERING SYSTEM PROVIDED HISTORY: Abdominal pain, status post Oestreich bypass surgery TECHNOLOGIST PROVIDED HISTORY: Abdominal pain, status post Oestreich bypass surgery Decision Support Exception - unselect if not a suspected or confirmed emergency medical condition->Emergency Medical Condition (MA) FINDINGS: Lower Chest: No lung base consolidation lung base mass or pleural effusions were noted. Organs: The liver, gallbladder, spleen, both adrenals and pancreas appeared normal. Postoperative changes were noted from partial gastrectomy. No renal mass, hydronephrosis, renal or ureteral calculi were noted. GI/Bowel: Sigmoid colon diverticulosis was noted without diverticulitis. Several loops of proximal jejunum demonstrated wall thickening and adjacent mesenteric fat inflammation. A small jejunal serosal abscess was noted measuring 3.2 x 2.4 cm. No obstruction was noted. Pelvis: No ovarian mass or cyst was noted. A small amount of free fluid was noted in the cul-de-sac. No urinary bladder wall thickening was noted. Peritoneum/Retroperit oneum: No abdominal or pelvic lymphadenopathy were identified. Bones/Soft Tissues: Subcutaneous soft tissue inflammation was noted along the left anterolateral abdominal wall. Grade 1 anterolisthesis of L5 over S1 was noted secondary to bilateral pars interarticularis defects. Marked decrease in disc height was noted at the L5-S1 disc. [employer] Phone: Dario, pn Incoming Radiant Results From [employer] - 01/30/2021 12:20 PM EDT EXAMINATION: CT OF THE ABDOMEN AND PELVIS WITH CONTRAST 01/30/2021 10:36 am TECHNIQUE: CT of the abdomen and pelvis was performed with the administration of intravenous contrast. Multiplanar reformatted images are provided for review. Dose modulation, iterative reconstruction, and/or weight based adjustment of the mA/kV was utilized to reduce the radiation dose to as low as reasonably achievable. COMPARISON: None. HISTORY: ORDERING SYSTEM PROVIDED HISTORY: Abdominal pain, status post Oestreich bypass surgery TECHNOLOGIST PROVIDED HISTORY: Abdominal pain, status post Oestreich bypass surgery Decision Support Exception - unselect if not a suspected or confirmed emergency medical condition->Emergency Medical Condition (MA) FINDINGS: Lower Chest: No lung base consolidation lung base mass or pleural effusions were noted. Organs: The liver, gallbladder, spleen, both adrenals and pancreas appeared normal. Postoperative changes were noted from partial gastrectomy. No renal mass, hydronephrosis, renal or ureteral calculi were noted. GI/Bowel: Sigmoid colon diverticulosis was noted without diverticulitis. Several loops of proximal jejunum demonstrated wall thickening and adjacent mesenteric fat inflammation. A small jejunal serosal abscess was noted measuring 3.2 x 2.4 cm. No obstruction was noted. Pelvis: No ovarian mass or cyst was noted. A small amount of free fluid was noted in the cul-de-sac. No urinary bladder wall thickening was noted. Peritoneum/Retroperit oneum: No abdominal or pelvic lymphadenopathy were identified. Bones/Soft Tissues: Subcutaneous soft tissue inflammation was noted along the left anterolateral abdominal wall. Grade 1 anterolisthesis of L5 over S1 was noted secondary to bilateral pars interarticularis defects. Marked decrease in disc height was noted at the L5-S1 disc. IMPRESSION: Postoperative changes were noted from partial gastrectomy. Sigmoid colon diverticulosis without diverticulitis. Several loops proximal jejunitis was noted manifested by wall thickening and adjacent mesenteric fat inflammation. A small jejunal serosal abscess was noted measuring 3.2 x 2.4 cm. Small amount of free fluid in the cul-de-sac, probably physiologic. 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 [employer] Work Phone: [employer] Work Phone: Comprehensive Metabolic Pane l w/ Reflex to MGOrdered By: David Nash on 01-30-2021 Albumin [Mass/Vol] 3.6 g/dL 3.5 - 5.2 g/dL [employer] Phone: Albumin/Globulin [Mass ratio] 1.0 {ratio} [employer] Phone: ALP (Bld) [Catalytic activity/Vol] 107 U/L High 35 - 104 U/L [employer] Phone: ALT [Catalytic activity/Vol] 33 U/L 5 - 33 U/L [employer] Phone: Anion gap [Moles/Vol] 17 mmol/L 9 - 17 mmol/L [employer] Phone: AST [Catalytic activity/Vol] 26 U/L <32 [employer] Phone: Bilirubin [Mass/Vol] 0.25 mg/dL Low 0.3 - 1 .2 mg/dL [employer] Phone: Calcium [Mass/Vol] 9.5 mg/dL 8.6 - 10. 4 mg/dL [employer] Phone: Chloride [Moles/Vol] 104 mmol/L 98 - 10 7 mmol/L [employer] Phone: CO2 [Moles/Vol] 19 mmol/L Low 20 - 31 mmol/L [employer] Phone: Creatinine [Mass/Vol] 0.47 mg/dL Low 0.50 - 0.90 mg/dL [employer] Phone: Free PSA/Total PSA [Mass fraction] 7.3 g/dL 6.4 - 8.3 g/dL [employer] Phone: GFR >60 >60 mL/min [employer] Phone: GFR Non- >60 >60 mL/min [employer] Phone: Glucose [Mass/Vol] 79 mg/dL 70 - 99 mg/dL [employer] Phone: Interpretation and review of laboratory results Abnormal [employer] Phone: Potassium [Moles/Vol] 3.8 mmol/L 3.7 - 5.3 mmol/L [employer] Phone: Sodium [Moles/Vol] 140 mmol/L 135 - 144 mmol/L [employer] Phone: Urea nitrogen (BldV) [Mass/Vol] 5 mg/dL Low 6 - 20 mg/dL [employer] Phone: Urea nitrogen/Creatinine (Bld) [Mass ratio] 11 [employer] Phone: HCG Qualitative, SerumOrdere d By: Noreen Mckeon on 01-30-2021 hCG Qual Negative NEGATIVE [employer] Phone: Comment on above: Specimens with hCG l evels near the threshold of the test (25 mIU/mL) may give a negative or indeterminate result. In such cases, another test should be performed with a new specimen in 48-72 hours. If early is suspected clinically in this setting, correlation with quantitative serum b-hCG level is suggested. [employer] has confirmed the use of plasma for this test. This has not been cleared or approved by the U.S. Food and Drug Administration. The FDA has determined that such clearance is not necessary. [employer] Phone: Laboratory - Chemistry and C hemistry - challengeOrdered By: David Nash on 01-30-2021 GFR/1.73 sq M.predicted MDRD (S/P/Bld) [Vol rate/Area] [employer] Phone: Comment on above: Average GFR for 30-3 9 years old: 107 mL/min/1.73sq m Chronic Kidney Disease: <60 mL/min/1.73sq m Kidney failure: <15 mL/min/1.73sq m eGFR calculated using average adult body mass. Additional eGFR calculator available at: http://www.[employer]/multiple_crcl_2012.htm Stage 1: Some kidney damage normal GFR Stage 2: Mild kidney damage GFR 60-89 Stage 3: Moderate kidney damage GFR 30-59 Stage 4: Severe kidney damage GFR 15-29 Stage 5: Severe kidney damage GFR <15 ESRD - chronic treatment by dialysis or transplant Lactic AcidOrdered By: Beatriz Nash on 01-30-2021 Lactate [Moles/Vol] 0.6 mmol/L 0.5 - 2. 2 mmol/L [facility] [employer] Work Phone: [facility] [employer] Work Phone: LipaseOrdered By: David dalton on 01-30-2021 Lipase [Catalytic activity/Vol] 30 U/L 13 - 60 U/L [facility] [employer] Work Phone: Microscopic UrinalysisOrdere d By: David Nash on 01-30-2021 - [facility] [employer] Work Phone: Amorphous, UA NOT REPORTED None [facility] Work Phone: Bacteria, UA TRACE Abnormal None [facility] Work Phone: Casts UA NOT REPORTED /LPF [facility] [employer] Work Phone: Crystals, UA NOT REPORTED None /HPF [facility] Work Phone: Epithelial Cells UA 2 TO 5 [facility] Work Phone: Interpretation and review of laboratory results Abnormal [facility] [employer] Work Phone: Mucus, UA NOT REPORTED None [facility] Work Phone: Other Observations UA NOT REPORTED NOT REQ. [facility] Work Phone: RBC, UA 0 TO 2 [facility] Work Phone: Renal Epithelial, UA NOT REPORTED 0 /HPF [facility] Work Phone: Trichomonas, UA NOT REPORTED None [facility] Work Phone: WBC, UA 2 TO 5 [facility] Work Phone: Yeast, UA NOT REPORTED None [facility] [employer] Work Phone: [facility] [employer] Work Phone: No Panel InformationOrdered By: David Nash on 01-30-2021 [facility] [employer] Work Phone: Protime-INROrdered By: Linda Mckeon on 01-30-2021 INR Coag (Bld) [Relative time] 1.1 {INR} [facility] [employer] Work Phone: Comment on above: Therapeutic Range: Moderate Anticoagulant Intensity: INR = 2.0-3.0 High Anticoagulant Intensity: INR = 2.5-3.5 PT Coag (PPP) [Time] 11.4 s [facility] [employer] Work Phone: [facility] Work Phone: Urinalysis, reflex to micros copicOrdered By: David Nash on 01-30-2021 Bilirubin Urine SMALL Abnormal NEGATIVE [facility] Work Phone: Color, UA YELLOW YELLOW [facility] Work Phone: Glucose, Ur Negative NEGATIVE [facility] Work Phone: Interpretation and review of laboratory results Abnormal [facility] Work Phone: Ketones Ql (U) 4+ Abnormal NEGATIVE [facility] Work Phone: Leukocyte esterase Test strip Ql (U) Negative NEGATIVE [facility] Work Phone: Nitrite, Urine Negative NEGATIVE [facility] Work Phone: pH, UA 5.5 [facility] Work Phone: Protein, UA Negative NEGATIVE [facility] Work Phone: Specific [place], UA <1.005 Low [facility] Work Phone: Turbidity UA CLEAR CLEAR [facility] Work Phone: Urinalysis Comments NOT REPORTED [facility] Work Phone: Urine Hgb Negative NEGATIVE [employer] Phone: Urobilinogen, Urine Normal Normal [employer] Phone: [employer] Phone: Basic Metabolic PanelOrdered By: Gamaliel Harris on 01-08-2021 Anion gap [Moles/Vol] 11 mmol/L 9 - 17 mmol/L [employer] Phone: Calcium [Mass/Vol] 9.1 mg/dL 8.6 - 10. 4 mg/dL [employer] Phone: Chloride [Moles/Vol] 105 mmol/L 98 - 10 7 mmol/L [employer] Phone: CO2 [Moles/Vol] 23 mmol/L 20 - 31 mmol/L [employer] Phone: Creatinine [Mass/Vol] 0.57 mg/dL 0.50 - 0.90 mg/dL [employer] Phone: GFR >60 >60 mL/min [employer] Phone: GFR Non- >60 >60 mL/min [employer] Phone: GFR/1.73 sq M.predicted MDRD (S/P/Bld) [Vol rate/Area] [employer] Phone: Comment on above: Average GFR for 30-3 9 years old: 107 mL/min/1.73sq m Chronic Kidney Disease: <60 mL/min/1.73sq m Kidney failure: <15 mL/min/1.73sq m eGFR calculated using average adult body mass. Additional eGFR calculator available at: http://www.[employer]/multiple_crcl_2012.htm GFR/1.73 sq M.predicted MDRD (S/P/Bld) [Vol rate/Area] NOT REPORTED [employer] Phone: Glucose [Mass/Vol] 106 mg/dL High 70 - 99 mg/dL [employer] Phone: Interpretation and review of laboratory results Abnormal [employer] Phone: Potassium [Moles/Vol] 3.7 mmol/L 3.7 - 5.3 mmol/L [employer] Phone: Sodium [Moles/Vol] 139 mmol/L 135 - 144 mmol/L [employer] Phone: Urea nitrogen (BldV) [Mass/Vol] 7 mg/dL 6 - 20 mg/dL [employer] Phone: Urea nitrogen/Creatinine (Bld) [Mass ratio] NOT REPORTED [employer] Phone: CBCOrdered By: Gamaliel castillo on 01-08-2021 Hematocrit (Bld) [Volume fraction] 38.0 % 36.3 - 47.1 % [employer] Phone: Hemoglobin.gastrointest inal spec 1 Ql (Stl) 12.2 g/dL 11.9 - 15.1 g/dL [employer] Phone: Interpretation and review of laboratory results Abnormal [employer] Phone: MCH (RBC) [Entitic mass] 30.4 pg 25.2 - 33.5 pg [employer] Phone: MCHC (RBC) [Mass/Vol] 32.1 g/dL 28.4 - 34.8 g/dL [employer] Phone: MCV (RBC) [Entitic vol] 94.8 fL 82.6 - 102.9 fL [employer] Phone: NRBC Automated 0.0 0.0 per 100 WBC [employer] Phone: Platelet distribution width (Bld) [Ratio] 13.5 % 11.8 - 14.4 % [employer] Phone: Platelet mean volume (Bld) [Entitic vol] 11.4 fL 8.1 - 13.5 fL [employer] Phone: Platelets (Bld) [#/Vol] 304 10*3/uL [employer] Phone: RBC (Bld) [#/Vol] 4.01 10*6/uL 3.95 - 5.1 1 m/uL [employer] [facility] Phone: WBC (Bld) [#/Vol] 18.0 10*3/uL High [employer] [facility] [facility] Phone: FL ESOPHAGRAMOrdered By: Yadi Harris on 01-08-2021 No evidence of postoperative leak. [employer] [facility] [facility] Phone: EXAMINATION: SINGLE CONTRAST ESOPHAGRAM 01/08/2021 HISTORY: Reason for Exam: bypass COMPARISON: None. TECHNIQUE: Multiple single contrast images of the esophagus and gastroesophageal junction were obtained following the oral administration of water soluble contrast FLUOROSCOPY DOSE AND TYPE OR TIME AND EXPOSURES: DAP 26.184 gycm2 1.2 minutes FINDINGS: Contrast transits from the distal esophagus through the bypass and into the Tian limb without evidence of leak. Delayed imaging demonstrates no significant progression of contrast. Consider follow-up abdominal KUB/radiographs to assess progression as clinically warranted. [facility] Phone: Dario, [facility] Incoming Radiant Results From [employer] - 01/08/2021 12:29 PM EDT EXAMINATION: SINGLE CONTRAST ESOPHAGRAM 01/08/2021 HISTORY: Reason for Exam: bypass COMPARISON: None. TECHNIQUE: Multiple single contrast images of the esophagus and gastroesophageal junction were obtained following the oral administration of water soluble contrast FLUOROSCOPY DOSE AND TYPE OR TIME AND EXPOSURES: DAP 26.184 gycm2 1.2 minutes FINDINGS: Contrast transits from the distal esophagus through the bypass and into the Tian limb without evidence of leak. Delayed imaging demonstrates no significant progression of contrast. Consider follow-up abdominal KUB/radiographs to assess progression as clinically warranted. IMPRESSION: No evidence of postoperative leak. [facility] Phone: Basic Metabolic PanelOrdered By: Gamaliel Harris on 01-07-2021 Anion gap [Moles/Vol] 10 mmol/L 9 - 17 mmol/L [facility] Phone: Calcium [Mass/Vol] 8.8 mg/dL 8.6 - 10. 4 mg/dL [facility] Phone: Chloride [Moles/Vol] 105 mmol/L 98 - 10 7 mmol/L [facility] Phone: CO2 [Moles/Vol] 20 mmol/L 20 - 31 mmol/L [facility] Phone: Creatinine [Mass/Vol] 0.68 mg/dL 0.50 - 0.90 mg/dL [facility] Phone: GFR >60 >60 mL/min [employer] Phone: GFR Non- >60 >60 mL/min [facility] Phone: GFR/1.73 sq M.predicted MDRD (S/P/Bld) [Vol rate/Area] [facility] Phone: Comment on above: Average GFR for 30-3 9 years old: 107 mL/min/1.73sq m Chronic Kidney Disease: <60 mL/min/1.73sq m Kidney failure: <15 mL/min/1.73sq m eGFR calculated using average adult body mass. Additional eGFR calculator available at: http://www.[employer]/multiple_crcl_2012.htm GFR/1.73 sq M.predicted MDRD (S/P/Bld) [Vol rate/Area] NOT REPORTED [facility] Phone: Glucose [Mass/Vol] 215 mg/dL High 70 - 99 mg/dL [facility] Phone: Interpretation and review of laboratory results Abnormal [facility] [facility] Phone: Potassium [Moles/Vol] 4.2 mmol/L 3.7 - 5.3 mmol/L [facility] Phone: Sodium [Moles/Vol] 135 mmol/L 135 - 144 mmol/L [facility] Phone: Urea nitrogen (BldV) [Mass/Vol] 14 mg/dL 6 - 20 mg/dL [facility] Phone: Urea nitrogen/Creatinine (Bld) [Mass ratio] NOT REPORTED [facility] Phone: CBC without DiffOrdered By: Gamaliel Harris on 01-07-2021 Hematocrit (Bld) [Volume fraction] 38.3 % 36.3 - 47.1 % [facility] Phone: Hemoglobin.gastrointest inal spec 1 Ql (Stl) 12.5 g/dL 11.9 - 15.1 g/dL [facility] Phone: Interpretation and review of laboratory results Abnormal [facility] Phone: MCH (RBC) [Entitic mass] 30.9 pg 25.2 - 33.5 pg [facility] Phone: MCHC (RBC) [Mass/Vol] 32.6 g/dL 28.4 - 34.8 g/dL [facility] Phone: MCV (RBC) [Entitic vol] 94.8 fL 82.6 - 102.9 fL [facility] Phone: NRBC Automated 0.0 0.0 per 100 WBC [facility] Phone: Platelet distribution width (Bld) [Ratio] 13.4 % 11.8 - 14.4 % [facility] Phone: Platelet mean volume (Bld) [Entitic vol] 11.2 fL 8.1 - 13.5 fL [facility] Phone: Platelets (Bld) [#/Vol] 373 10*3/uL [facility] Phone: RBC (Bld) [#/Vol] 4.04 10*6/uL 3.95 - 5.1 1 m/uL [facility] Phone: WBC (Bld) [#/Vol] 24.9 10*3/uL High [facility] Phone: POCT urine pregnancyOrdered By: Gamaliel Harris on 01-07-2021 Beta HCG ( test) Ql (U) Negative NEGATIVE [facility] Phone: Comment on above: Specimens with hCG l evels near the threshold of the test (25 mIU/mL) may give a negative or indeterminate result. In such cases, another test should be performed with a new specimen in 48-72 hours. If early is suspected clinically in this setting, correlation with quantitative serum b-hCG level is suggested. [id number] 01-04-2021 SARS-CoV-2 (COVID-19) RNA JOSÉ MIGUEL+probe Ql (Unsp spec) Normal [facility] Comment on above: Performed By: #### C OVID #### [facility] [address] [place], [place] [id number] Soap Drier Operator: Wei Reyna MD [id number] [place] [address] Soap Drier Operator: Harpal Adair MD SARS-CoV-2 (COVID-19) RNA JOSÉ MIGUEL+probe Ql (Unsp spec) Not detected Normal NOTDET [facility] Comment on above: Result Comment: The specimen is NEGATIVE for SARS-CoV-2, the novel coronavirus associated with COVID-19. A negative result does not rule out COVID-19. [facility] SARS-CoV-2 for use on the [employer] is a real-time RT-PCR test intended for the qualitative detection of nucleic acids from SARS-CoV-2 in clinician-collected nasal, nasopharyngeal, and oropharyngeal swab specimens from individuals who meet COVID-19 clinical and/or epidemiological criteria. [facility] SARS-CoV-2 is for use only under Emergency Use Authorization (EUA) in laboratories certified under Clinical Laboratory Improvement Amendments of 1988 (CLIA), 42 U.S.C. ?263a, that meet requirements to perform high or moderate complexity tests. An individual without symptoms of COVID-19 and who is not shedding SARS-CoV-2 virus would expect to have a negative (not detected) result in this assay. Fact sheet for Healthcare Providers: https://www.fda.gov/media/071789/download Fact sheet for Patients: https://www.fda.gov/media/856470/download METHODOLOGY: RT-PCR Performed By: #### C OVID #### [facility] [address] [place] [address] Soap Drier Operator: Wei Reyna MD [address] [id number] Soap Drier Operator: Harpal Adair MD [id number] 01-03-2021 SARS-CoV-2 (COVID-19) RNA JOSÉ MIGUEL+probe Ql (Unsp spec) .NASOPHARYNGEAL SWAB Normal [facility] Comment on above: Performed By: #### C OVID #### [facility] [address] [place] [address] Soap Drier Operator: Wei Reyna MD [address] [id number] Soap Drier Operator: Harpal Adair MD Nicotine, BloodOrdered By: Jose Harris on 12-26-2020 4-NP-Ucusbasv <2 ng/mL [facility] Work Phone: Cotinine <2 ng/mL [facility] Work Phone: Nicotine <2 ng/mL [facility] Work Phone: Comment on above: (NOTE) Consistent with abstinence from nicotine-containing products for at least 1 week. INTERPRETIVE INFORMATION: Nicotine and Metabolites, Serum or Plasma, Quantitative Methodology: Quantitative Liquid Chromatography-Tandem Mass Spectrometry Positive cutoff: 2 ng/mL For medical purposes only; not valid for forensic use. This test is designed to evaluate recent use of nicotine-containing products. Passive and active exposure cannot be discriminated definitively, although a cutoff of 10 ng/mL cotinine is frequently used for surgery qualification purposes. For smoking cessation programs or compliance testing, the absence of expected drug(s) and/or drug metabolite(s) may indicate non-compliance, inappropriate timing of specimen collection relative to drug administration, poor drug absorption, or limitations of testing. This test cannot distinguish between use of tobacco and purified nicotine products. The concentration value must be greater than or equal to the cutoff to be reported as positive. This test was developed and its performance characteristics determined by [facility]. It has not been cleared or approved by the US Food and Drug Administration. This test was performed in a CLIA certified laboratory and is intended for clinical purposes. Performed By: [facility] [address] [place] [id number] Licensed Sales Producer: Brissa Bonilla MD EKG 12 LeadOrdered By: Enmanuel Harris on 12-25-2020 Atrial Rate 70 BPM [facility] Phone: P [place] 20 degrees [employer] [facility] Phone: P-R Interval 176 ms [facility] Phone: Q-T Interval 414 ms [facility] Phone: QRS Duration 88 ms [employer] [facility] [facility] Phone: QTc Calculation (Bazett) 447 ms [facility] Phone: R [place] 7 degrees [facility] [facility] Phone: T [place] 8 degrees [facility] [facility] Phone: Ventricular Rate 70 BPM [employer] Phone: Normal sinus rhythm Normal ECG No previous ECGs available [facility] Phone: Dario, [facility] Incoming Ekg Results From [employer] - 12/25/2020 12:47 PM EDT Normal sinus rhythm Normal ECG No previous ECGs available [facility] Phone: APTTOrdered By: Gamaliel horvath on 12-24-2020 aPTT Coag (Bld) [Time] 23.1 s [facility] Phone: Comment on above: IV Heparin Therapy Range: 48.6-77.8 Basic Metabolic PanelOrdered By: Gamaliel Harris on 12-24-2020 Anion gap [Moles/Vol] 10 mmol/L 9 - 17 mmol/L [facility] Phone: Calcium [Mass/Vol] 9.4 mg/dL 8.6 - 10. 4 mg/dL [facility] Phone: Chloride [Moles/Vol] 106 mmol/L 98 - 10 7 mmol/L [facility] [facility] Phone: CO2 [Moles/Vol] 23 mmol/L 20 - 31 mmol/L [facility] Phone: Creatinine [Mass/Vol] 0.56 mg/dL 0.50 - 0.90 mg/dL [facility] Phone: GFR >60 >60 mL/min [employer] Phone: GFR Non- >60 >60 mL/min [facility] Phone: GFR/1.73 sq M.predicted MDRD (S/P/Bld) [Vol rate/Area] [facility] [facility] Phone: Comment on above: Average GFR for 30-3 9 years old: 107 mL/min/1.73sq m Chronic Kidney Disease: <60 mL/min/1.73sq m Kidney failure: <15 mL/min/1.73sq m eGFR calculated using average adult body mass. Additional eGFR calculator available at: http://www.[employer]/multiple_crcl_2012.htm GFR/1.73 sq M.predicted MDRD (S/P/Bld) [Vol rate/Area] NOT REPORTED [facility] [facility] Phone: Glucose [Mass/Vol] 86 mg/dL 70 - 99 mg/dL [facility] Phone: Potassium [Moles/Vol] 3.8 mmol/L 3.7 - 5.3 mmol/L [facility] [facility] Phone: Sodium [Moles/Vol] 139 mmol/L 135 - 144 mmol/L [facility] [facility] Phone: Urea nitrogen (BldV) [Mass/Vol] 12 mg/dL 6 - 20 mg/dL [facility] [facility] Phone: Urea nitrogen/Creatinine (Bld) [Mass ratio] NOT REPORTED [facility] [facility] Phone: CBCOrdered By: Gamaliel castillo on 12-24-2020 Hematocrit (Bld) [Volume fraction] 41.2 % 36.3 - 47.1 % [employer] [facility] [facility] Phone: Hemoglobin.gastrointest inal spec 1 Ql (Stl) 13.4 g/dL 11.9 - 15.1 g/dL [facility] [facility] Phone: MCH (RBC) [Entitic mass] 30.5 pg 25.2 - 33.5 pg [facility] Phone: MCHC (RBC) [Mass/Vol] 32.5 g/dL 28.4 - 34.8 g/dL [facility] [facility] Phone: MCV (RBC) [Entitic vol] 93.6 fL 82.6 - 102.9 fL [facility] [facility] Phone: NRBC Automated 0.0 0.0 per 100 WBC [facility] [facility] Phone: Platelet distribution width (Bld) [Ratio] 13.2 % 11.8 - 14.4 % [employer] [facility] [facility] Phone: Platelet mean volume (Bld) [Entitic vol] 10.7 fL 8.1 - 13.5 fL [employer] [facility] [facility] Phone: Platelets (Bld) [#/Vol] 391 10*3/uL [employer] [facility] Phone: RBC (Bld) [#/Vol] 4.40 10*6/uL 3.95 - 5.1 1 m/uL [employer] [facility] [facility] Phone: WBC (Bld) [#/Vol] 8.5 10*3/uL [employer] [facility] [facility] Phone: Protime-INROrdered By: Enmanuel Harris on 12-24-2020 INR Coag (Bld) [Relative time] 0.9 {INR} [employer] [facility] [facility] Phone: Comment on above: Therapeutic Range: Moderate Anticoagulant Intensity: INR = 2.0-3.0 High Anticoagulant Intensity: INR = 2.5-3.5 PT Coag (PPP) [Time] 10 s [employer] Phone: XR CHEST (2 VW)on 12-24-2020 No acute cardiopulmonary findings [facility] [facility] Phone: EXAMINATION: TWO XRA Y VIEWS OF THE CHEST 12/24/2020 11:24 am COMPARISON: None. HISTORY: ORDERING SYSTEM PROVIDED HISTORY: preop gastric bypass [employer] TECHNOLOGIST PROVIDED HISTORY: preop gastric bypass Tian En Y Reason for Exam: no chest complaints FINDINGS: Normal cardiopericardial silhouette There are no significant mediastinal, pleural, parenchymal or osseous findings [facility] [facility] Phone: Dario, [facility] Incoming Radiant Results From [employer] - 12/24/2020 11:30 AM EDT EXAMINATION: TWO XRAY VIEWS OF THE CHEST 12/24/2020 11:24 am COMPARISON: None. HISTORY: ORDERING SYSTEM PROVIDED HISTORY: preop gastric bypass Tian [employer] TECHNOLOGIST PROVIDED HISTORY: preop gastric bypass Tian En Y Reason for Exam: no chest complaints FINDINGS: Normal cardiopericardial silhouette There are no significant mediastinal, pleural, parenchymal or osseous findings IMPRESSION: No acute cardiopulmonary findings [facility] [facility] Phone: XR CHEST (2 VW)Ordered By: Jose Harris on 12-24-2020 No acute cardiopulmonary findings [facility] [facility] Phone: EXAMINATION: TWO XRA Y VIEWS OF THE CHEST 12/24/2020 11:24 am COMPARISON: None. HISTORY: ORDERING SYSTEM PROVIDED HISTORY: preop gastric bypass [employer] TECHNOLOGIST PROVIDED HISTORY: preop gastric bypass Tian En Y Reason for Exam: no chest complaints FINDINGS: Normal cardiopericardial silhouette There are no significant mediastinal, pleural, parenchymal or osseous findings [facility] [facility] Phone: Dario, [facility] Incoming Radiant Results From [employer] - 12/24/2020 11:30 AM EDT EXAMINATION: TWO XRAY VIEWS OF THE CHEST 12/24/2020 11:24 am COMPARISON: None. HISTORY: ORDERING SYSTEM PROVIDED HISTORY: preop gastric bypass [employer] TECHNOLOGIST PROVIDED HISTORY: preop gastric bypass Tian En Y Reason for Exam: no chest complaints FINDINGS: Normal cardiopericardial silhouette There are no significant mediastinal, pleural, parenchymal or osseous findings IMPRESSION: No acute cardiopulmonary findings [employer] Phone: FL UGI W AIR CONTRASTon 10-15 Intermittent significant spontaneous GE reflux. Otherwise unremarkable double-contrast upper GI and esophagram. [employer] Phone: EXAMINATION: DOUBLE CONTRAST UPPER GI SERIES WITH ATTENTION TO THE ESOPHAGUS 11/01/2020 TECHNIQUE: Double contrast upper GI series was performed with barium and air contrast. FLUOROSCOPY DOSE AND TYPE OR TIME AND EXPOSURES: 1.8 minute fluoro time, 63.75 mGy 18 cine series COMPARISON: None HISTORY: ORDERING SYSTEM PROVIDED HISTORY: Gastroesophageal reflux disease with esophagitis without hemorrhage TECHNOLOGIST PROVIDED HISTORY: GERD FINDINGS: The esophagus is of normal caliber and demonstrates normal motility. There are no mucosal abnormalities seen. Swallowing function appears normal. The gastroesophageal junction is normal. No hiatal hernia. However, intermittent significant spontaneous GE reflux is noted. The stomach is normal in appearance with no evidence for mass present. The duodenal bulb and sweep are normal. [employer] Phone: Dario, [facility] Incoming Radiant Results From [employer] - 11/01/2020 5:21 PM EST EXAMINATION: DOUBLE CONTRAST UPPER GI SERIES WITH ATTENTION TO THE ESOPHAGUS 11/01/2020 TECHNIQUE: Double contrast upper GI series was performed with barium and air contrast. FLUOROSCOPY DOSE AND TYPE OR TIME AND EXPOSURES: 1.8 minute fluoro time, 63.75 mGy 18 cine series COMPARISON: None HISTORY: ORDERING SYSTEM PROVIDED HISTORY: Gastroesophageal reflux disease with esophagitis without hemorrhage TECHNOLOGIST PROVIDED HISTORY: GERD FINDINGS: The esophagus is of normal caliber and demonstrates normal motility. There are no mucosal abnormalities seen. Swallowing function appears normal. The gastroesophageal junction is normal. No hiatal hernia. However, intermittent significant spontaneous GE reflux is noted. The stomach is normal in appearance with no evidence for mass present. The duodenal bulb and sweep are normal. IMPRESSION: Intermittent significant spontaneous GE reflux. Otherwise unremarkable double-contrast upper GI and esophagram. [facility] Work Phone: COVID-19on 09-25-2020 SARS-CoV-2 [place], [place] SARS-CoV-2 Not Detected Not Detected [place], [place] Comment on above: The specimen is NEGATIVE for SARS-CoV-2, the novel coronavirus associated with COVID-19. A negative result does not rule out COVID-19. [facility] SARS-CoV-2 for use on the [employer] is a real-time RT-PCR test intended for the qualitative detection of nucleic acids from SARS-CoV-2 in clinician-collected nasal, nasopharyngeal, and oropharyngeal swab specimens from individuals who meet COVID-19 clinical and/or epidemiological criteria. [employer] SARS-CoV-2 is for use only under Emergency Use Authorization (EUA) in laboratories certified under Clinical Laboratory Improvement Amendments of 1988 (CLIA), 42 U.S.C. 263a, that meet requirements to perform high or moderate complexity tests. An individual without symptoms of COVID-19 and who is not shedding SARS-CoV-2 virus would expect to have a negative (not detected) result in this assay. Fact sheet for Healthcare Providers: https://www.fda.gov/media/834298/download Fact sheet for Patients: https://www.fda.gov/media/624924/download METHODOLOGY: RT-PCR SARS-CoV-2, Rapid [place], [place] Source .NASOPHARYNGEAL SWAB [place], [place] Vital Signs Date Time Vital Sign Value Performing Clinician Facility 09-18-2023 08:49-0500 Diastolic blood pressure 72 mm[Hg] Gamaliel Harris DO Work Phone: [facility] [employer] 09-18-2023 08:49-0500 Heart rate 58 /min Gamaliel Harris DO Work Phone: [facility] [employer] 09-18-2023 08:49-0500 Respiratory rate 18 /min Gamaliel Harris DO Work Phone: [facility] [employer] 09-18-2023 08:49-0500 SaO2% (BldA) [Mass fraction] 100 % Gamaliel Harris DO Work Phone: [facility] [employer] 09-18-2023 08:49-0500 Systolic blood pressure 111 mm[Hg] Gamaliel Harris DO Work Phone: [facility] [employer] 09-18-2023 08:24-0500 Body temperature 97.11 [degF] Gamaliel Harris DO Work Phone: [facility] [employer] 09-18-2023 07:23-0500 Body height 170.2 cm Gamaliel Harris DO Work Phone: [facility] [employer] 09-18-2023 07:23-0500 Body mass index (BMI) [Ratio] 31.79 kg/m2 Gamaliel Harris DO Work Phone: [facility] [employer] 09-18-2023 07:23-0500 Body weight 92.08 kg Gamaliel Harris DO [facility] 08-15-2023 13:37-0500 Diastolic blood pressure 69 mm[Hg] DO Jennie Ames Work Phone: [facility] 08-15-2023 13:37-0500 Heart rate 70 /min DO Jennie Ames Work Phone: [facility] 08-15-2023 13:37-0500 Respiratory rate 18 /min DO Jennie Ames Work Phone: [facility] 08-15-2023 13:37-0500 SaO2% (BldA) [Mass fraction] 99 % DO Jennie Ames Work Phone: [facility] 08-15-2023 13:37-0500 Systolic blood pressure 107 mm[Hg] DO Jennie Ames Work Phone: [facility] 08-15-2023 11:29-0500 Body height 170.18 cm DO Jennie Ames Work Phone: [facility] 08-15-2023 11:29-0500 Body temperature 98.2 [degF] DO Jennie Ames Work Phone: [facility] 08-15-2023 11:29-0500 Body weight 86.18 kg DO Jennie Ames Work Phone: [facility] 08-14-2023 16:43-0500 Body height 170.18 cm DO Jennie Ames Work Phone: [facility] 08-14-2023 16:43-0500 Body temperature 98.2 [degF] DO Jennie Ames Work Phone: [facility] 08-14-2023 16:43-0500 Body weight 88.6 kg DO Jennie Ames Work Phone: [facility] 08-14-2023 16:43-0500 Diastolic blood pressure 66 mm[Hg] DO Jennie Ames Work Phone: [facility] 08-14-2023 16:43-0500 Heart rate 80 /min DO Jennie Ames Work Phone: [facility] 08-14-2023 16:43-0500 Respiratory rate 18 /min DO Jennie Ames Work Phone: [facility] 08-14-2023 16:43-0500 SaO2% (BldA) [Mass fraction] 98 % DO Jennie Ames Work Phone: [facility] 08-14-2023 16:43-0500 Systolic blood pressure 118 mm[Hg] DO Jennie Ames Work Phone: [facility] 08-13-2023 11:15-0500 Body height 170.18 cm Imad Asaad Other [employer] Other 08-13-2023 11:15-0500 Body mass index (BMI) [Ratio] 30.54 kg/m2 Imad Asaad Other [facility] Other 08-13-2023 11:15-0500 Body weight 88.45 kg Imad Asaad Other [facility] Other 08-13-2023 11:15-0500 Diastolic blood pressure 84 mm[Hg] Imad Asaad Other [facility] Other 08-13-2023 11:15-0500 Systolic blood pressure 133 mm[Hg] Imad Asaad Other [facility] Other 07-08-2023 12:05-0400 Body height 170.18 cm Ania Shipleymond Other [facility] Other 07-08-2023 12:05-0400 Body mass index (BMI) [Ratio] 30.22 kg/m2 Ania Tegan Other [facility] Other 07-08-2023 12:05-0400 Body temperature 99 [degF] Ania Tegan Other [facility] Other 07-08-2023 12:05-0400 Body weight 87.54 kg Ania Tegan Other [facility] Other 07-08-2023 12:05-0400 Diastolic blood pressure 64 mm[Hg] Ania Tegan Other [facility] Other 07-08-2023 12:05-0400 Respiratory rate 19 /min Ania Javed Other [facility] Other 07-08-2023 12:05-0400 SaO2% (BldA) [Mass fraction] 98 % Ania Javed Other [facility] Other 07-08-2023 12:05-0400 Systolic blood pressure 110 mm[Hg] Ania Javed Other [facility] Other 07-03-2023 11:05-0400 Diastolic blood pressure 80 mm[Hg] DO Jennie Ames Work Phone: [facility] 07-03-2023 11:05-0400 Heart rate 78 /min DO Jennie Ames Work Phone: [facility] 07-03-2023 11:05-0400 Respiratory rate 16 /min DO Jennie Ames Work Phone: [facility] 07-03-2023 11:05-0400 SaO2% (BldA) [Mass fraction] 99 % DO Jennie Ames Work Phone: [facility] 07-03-2023 11:05-0400 Systolic blood pressure 119 mm[Hg] DO Jennie Ames Work Phone: [facility] 07-03-2023 10:10-0400 Body height 170.18 cm DO Jennie Ames Work Phone: [facility] 07-03-2023 10:10-0400 Body temperature 98.7 [degF] DO Jennie Ames Work Phone: [facility] 07-03-2023 10:10-0400 Body weight 86.9 kg DO Jennie Ames Work Phone: [facility] 07-02-2023 14:06-0400 Body temperature 98.06 [degF] Bakari Henrik [facility] 07-02-2023 14:06-0400 Diastolic blood pressure 78 mm[Hg] Bakari Henrik [facility] 07-02-2023 14:06-0400 Heart rate 91 /min Bakari Henrik [facility] 07-02-2023 14:06-0400 Respiratory rate 18 /min Bakari Henrik [facility] 07-02-2023 14:06-0400 SaO2% (BldA) [Mass fraction] 100 % Bakari Henrik [facility] 07-02-2023 14:06-0400 Systolic blood pressure 121 mm[Hg] Bakari Henrik [facility] 01-15-2023 13:30-0400 Diastolic blood pressure 85 mm[Hg] Bakari Henrik [facility] 01-15-2023 13:30-0400 Heart rate 71 /min Bakari Henrik [facility] 01-15-2023 13:30-0400 Mean blood pressure 98 mm[Hg] Bakari Henrik [facility] 01-15-2023 13:30-0400 Respiratory rate 18 /min Bakari Henrik [facility] 01-15-2023 13:30-0400 SaO2% (BldA) [Mass fraction] 100 % Bakari Henrik [facility] 01-15-2023 13:30-0400 Systolic blood pressure 125 mm[Hg] Bakari Henrik [facility] 01-15-2023 12:30-0400 Diastolic blood pressure 99 mm[Hg] Bakari Henrik [facility] 01-15-2023 12:30-0400 Heart rate 78 /min Bakari Chester [facility] 01-15-2023 12:30-0400 Mean blood pressure 107 mm[Hg] Bakari Henrik [facility] 01-15-2023 12:30-0400 Respiratory rate 18 /min Bakari Henrik [facility] 01-15-2023 12:30-0400 SaO2% (BldA) [Mass fraction] 100 % Bakari Chester [facility] 01-15-2023 12:30-0400 Systolic blood pressure 122 mm[Hg] Bakari Henrik [facility] 01-15-2023 10:50-0400 Body temperature 98.42 [degF] Bakari Chester [facility] 01-15-2023 10:50-0400 Diastolic blood pressure 74 mm[Hg] Bakari Chester [facility] 01-15-2023 10:50-0400 Heart rate 77 /min Bakari Chester [facility] 01-15-2023 10:50-0400 Mean blood pressure 92 mm[Hg] Bakari Henrik [facility] 01-15-2023 10:50-0400 Respiratory rate 17 /min Bakari Henrik [facility] 01-15-2023 10:50-0400 SaO2% (BldA) [Mass fraction] 99 % Bakari Chester [facility] 01-15-2023 10:50-0400 Systolic blood pressure 129 mm[Hg] Bakari Henrik [facility] 12-05-2022 13:20-0400 Diastolic blood pressure 74 mm[Hg] Gal Das [facility] [facility] 12-[facility]-2022 13:20-0400 Heart rate 58 /min Gal Das [facility] 12-05-2022 13:20-0400 Respiratory rate 18 /min Gal Das [facility] 12-05-2022 13:20-0400 SaO2% (BldA) [Mass fraction] 100 % Gal Das [facility] 12-05-2022 13:20-0400 Systolic blood pressure 110 mm[Hg] Gal Das [facility] 12-05-2022 12:00-0400 Heart rate 54 /min Gal Das [facility] 12-05-2022 12:00-0400 SaO2% (BldA) [Mass fraction] 100 % Gal Das [facility] 12-05-2022 11:59-0400 Diastolic blood pressure 72 mm[Hg] Gal Das [facility] 12-05-2022 11:59-0400 Mean blood pressure 84 mm[Hg] Gal Das [facility] 12-05-2022 11:59-0400 Systolic blood pressure 109 mm[Hg] Gal Das [facility] 12-05-2022 11:53-0400 Body temperature 97.52 [degF] Gal Das [facility] 12-05-2022 11:53-0400 Diastolic blood pressure 73 mm[Hg] Gal Das [facility] 12-05-2022 11:53-0400 Heart rate 59 /min Gal Das [facility] 03-24-2023 11:53-0400 Mean blood pressure 87 mm[Hg] Gal Das [facility] 12-05-2022 11:53-0400 Respiratory rate 14 /min Gal Das [facility] 12-05-2022 11:53-0400 SaO2% (BldA) [Mass fraction] 100 % Gal Das [facility] 12-05-2022 11:53-0400 Systolic blood pressure 115 mm[Hg] Gal Das [facility] 12-05-2022 11:40-0400 Mean blood pressure 80 mm[Hg] Gal Das [facility] 12-05-2022 11:40-0400 Respiratory rate 18 /min Gal Das [facility] 12-05-2022 11:30-0400 Mean blood pressure 90 mm[Hg] Gal Das [facility] 12-05-2022 11:15-0400 Body temperature 97.34 [degF] Gal Das [facility] 12-05-2022 11:10-0400 Respiratory rate 18 /min Gal Das [facility] 12-05-2022 11:05-0400 Respiratory rate 21 /min Gal Das [facility] 12-05-2022 11:00-0400 Respiratory rate 11 /min Gal Das [facility] 12-05-2022 07:15-0400 Mean blood pressure 79 mm[Hg] Gal Das [facility] 12-05-2022 07:15-0400 Body temperature 97.88 [degF] Gal Das [facility] 12-05-2022 07:15-0400 Heart rate 72 /min Gal Das [facility] 12-05-2022 07:12-0400 Mean blood pressure 82 mm[Hg] Gal Das [facility] 11-21-2022 10:44-0500 Diastolic blood pressure 75 mm[Hg] Gal Das [facility] 11-21-2022 10:44-0500 Heart rate 67 /min Gal Das [facility] 11-21-2022 10:44-0500 Mean blood pressure 88 mm[Hg] Gal Das [facility] 11-21-2022 10:44-0500 Systolic blood pressure 112 mm[Hg] Gal Das [facility] 11-21-2022 10:44-0500 Heart rate 71 /min Gal Das [facility] 11-21-2022 10:44-0500 SaO2% (BldA) [Mass fraction] 100 % Gal Das [facility] 11-21-2022 10:43-0500 Diastolic blood pressure 79 mm[Hg] Gal Das [facility] 11-21-2022 10:43-0500 Mean blood pressure 91 mm[Hg] Gal Das [facility] 11-21-2022 10:43-0500 Systolic blood pressure 116 mm[Hg] Gal Das [facility] 11-21-2022 10:43-0500 Respiratory rate 16 /min Gal Das [facility] 11-20-2022 08:09-0500 Body height 170.2 cm Eileen Manzano MD Work Phone: [facility] 11-20-2022 08:09-0500 Body weight 85.73 kg Eileen Manzano MD Work Phone: [facility] 11-20-2022 08:09-0500 Diastolic blood pressure 81 mm[Hg] Eileen Manzano MD Work Phone: [facility] 11-20-2022 08:09-0500 Heart rate 67 /min Eileen Manzano MD Work Phone: [facility] 11-20-2022 08:09-0500 SaO2% (BldA) [Mass fraction] 100 % Eileen Manzano MD Work Phone: [facility] 11-20-2022 08:09-0500 Systolic blood pressure 137 mm[Hg] Eileen Manzano MD Work Phone: [facility] 11-03-2022 12:57-0500 Blood Pressure Location Nakia Charisse [facility] 11-03-2022 12:57-0500 Body temperature 98.24 [degF] Nakia Mcqueen [facility] 11-03-2022 12:57-0500 Diastolic blood pressure 80 mm[Hg] Nakia Mcqueen [facility] 11-03-2022 12:57-0500 Heart rate 85 /min Nakia Mcqueen [facility] 11-03-2022 12:57-0500 SaO2% (BldA) [Mass fraction] 98 % Nakia Mcqueen [facility] 11-03-2022 12:57-0500 Systolic blood pressure 104 mm[Hg] Nakia Mcqueen [facility] 09-24-2022 06:57-0500 Blood Pressure Location Aimee Walker [facility] 09-24-2022 06:57-0500 Body temperature 98.24 [degF] Aimee Walker [facility] 09-24-2022 06:57-0500 Diastolic blood pressure 64 mm[Hg] Aimee Walker [facility] 09-24-2022 06:57-0500 Heart rate 77 /min Aimee Walker [facility] 09-24-2022 06:57-0500 SaO2% (BldA) [Mass fraction] 99 % Aimee Walker [facility] 09-24-2022 06:57-0500 Systolic blood pressure 118 mm[Hg] Aimee Walker [facility] 08-22-2022 10:31-0500 Blood Pressure Location [facility] 08-22-2022 10:31-0500 Body temperature 98.06 [degF] [facility] 08-22-2022 10:31-0500 Diastolic blood pressure 76 mm[Hg] [facility] 08-22-2022 10:31-0500 Heart rate 95 /min [facility] 08-22-2022 10:31-0500 SaO2% (BldA) [Mass fraction] 98 % [facility] 08-22-2022 10:31-0500 Systolic blood pressure 110 mm[Hg] [facility] 08-19-2022 09:45-0500 Diastolic blood pressure 69 mm[Hg] DO Jennie Ames Work Phone: [facility] 08-19-2022 09:45-0500 Heart rate 82 /min DO Jennie Ames Work Phone: [facility] 08-19-2022 09:45-0500 Respiratory rate 16 /min DO Jennie Ames Work Phone: [facility] 08-19-2022 09:45-0500 SaO2% (BldA) [Mass fraction] 95 % DO Jennie Ames Work Phone: [facility] 08-19-2022 09:45-0500 Systolic blood pressure 104 mm[Hg] DO Jennie Ames Work Phone: [facility] 08-19-2022 07:41-0500 Body height 170.18 cm DO Jennie Ames Work Phone: [facility] 08-19-2022 07:41-0500 Body weight 83.6 kg DO Jennie Ames Work Phone: [facility] 08-18-2022 17:26-0500 Body temperature 98.06 [degF] Alexis Lopeze [facility] 08-18-2022 17:26-0500 Diastolic blood pressure 83 mm[Hg] Alexis Vazquez [facility] 08-18-2022 17:26-0500 Heart rate 84 /min Alexis Vazquez [facility] 08-18-2022 17:26-0500 Respiratory rate 18 /min Alexis Lopeze [facility] 08-18-2022 17:26-0500 SaO2% (BldA) [Mass fraction] 98 % Alexis Vazquez [facility] 08-18-2022 17:26-0500 Systolic blood pressure 120 mm[Hg] Alexis Vazquez [facility] 08-12-2022 15:50-0500 Body temperature 97.9 [degF] DO Jennie Ames Work Phone: [facility] 08-12-2022 15:50-0500 Diastolic blood pressure 83 mm[Hg] DO Jennie Ames Work Phone: [facility] 08-12-2022 15:50-0500 Heart rate 64 /min DO Jennie Ames Work Phone: [facility] 08-12-2022 15:50-0500 Respiratory rate 20 /min DO Jennie Ames Work Phone: [facility] 08-12-2022 15:50-0500 SaO2% (BldA) [Mass fraction] 100 % DO Jennie Ames Work Phone: [facility] 08-12-2022 15:50-0500 Systolic blood pressure 136 mm[Hg] DO Jennie Ames Work Phone: [facility] 08-12-2022 11:00-0500 Body height 170.18 cm DO Jennie Ames Work Phone: [facility] 08-12-2022 06:00-0500 Body weight 88.1 kg DO Jennie Ames Work Phone: [facility] 08-08-2022 10:30-0500 Diastolic blood pressure 76 mm[Hg] Bakari Henrik [facility] 08-08-2022 10:30-0500 Heart rate 58 /min Bakari Chester [facility] 08-08-2022 10:30-0500 Mean blood pressure 88 mm[Hg] Bakari Henrik [facility] 08-08-2022 10:30-0500 Respiratory rate 20 /min Bakari Henrik [facility] 08-08-2022 10:30-0500 SaO2% (BldA) [Mass fraction] 100 % Bakari Henrik [facility] 08-08-2022 10:30-0500 Systolic blood pressure 112 mm[Hg] Bakari Henrik [facility] 08-08-2022 10:00-0500 Diastolic blood pressure 86 mm[Hg] Bakari Henrik [facility] 08-08-2022 10:00-0500 Heart rate 64 /min Bakari Henrik [facility] 08-08-2022 10:00-0500 Mean blood pressure 97 mm[Hg] Bakari Henrik [facility] 08-08-2022 10:00-0500 Systolic blood pressure 120 mm[Hg] Bakari Henrik [facility] 08-08-2022 09:13-0500 gluc 98 mg/dL Bakari Henrik [facility] 08-08-2022 09:13-0500 gluc Bakarisamuel Chester [facility] 08-08-2022 09:06-0500 Body temperature 97.7 [degF] Bakari Henrik [facility] 08-08-2022 09:06-0500 Diastolic blood pressure 87 mm[Hg] Bakari Henrik [facility] 08-08-2022 09:06-0500 Heart rate 79 /min Bakari Henrik [facility] 08-08-2022 09:06-0500 Respiratory rate 18 /min Bakari Henrik [facility] 08-08-2022 09:06-0500 SaO2% (BldA) [Mass fraction] 100 % Bakari Chester [facility] 08-08-2022 09:06-0500 Systolic blood pressure 127 mm[Hg] Bakari Chester [facility] 07-21-2022 10:50-0500 Blood Pressure Location Aimee Walker [facility] 07-21-2022 10:50-0500 Body temperature 97.7 [degF] Aimee Valadezell [facility] 07-21-2022 10:50-0500 Diastolic blood pressure 72 mm[Hg] Aimee Walker [facility] 07-21-2022 10:50-0500 Heart rate 74 /min Aimee Walker [facility] 07-21-2022 10:50-0500 SaO2% (BldA) [Mass fraction] 99 % Aimee Walker [facility] 07-21-2022 10:50-0500 Systolic blood pressure 128 mm[Hg] Aimee Walker [facility] 05-13-2022 10:09-0400 Diastolic blood pressure 74 mm[Hg] Alexis Rivers [facility] 05-13-2022 10:09-0400 Heart rate 68 /min Alexis Rivers [facility] 05-13-2022 10:09-0400 Systolic blood pressure 112 mm[Hg] Alexis Rivers [facility] 04-21-2022 09:39-0400 Blood Pressure Location Aimee Walker [facility] 04-21-2022 09:39-0400 Body temperature 98.24 [degF] Aimee Walker [facility] 04-21-2022 09:39-0400 Diastolic blood pressure 72 mm[Hg] Aimee Walker [facility] 04-21-2022 09:39-0400 Heart rate 94 /min Aimee Walker [facility] 04-21-2022 09:39-0400 SaO2% (BldA) [Mass fraction] 100 % Aimee Walker [facility] 04-21-2022 09:39-0400 Systolic blood pressure 112 mm[Hg] Aimee Walker [facility] 04-20-2022 14:56-0400 Body temperature 98.24 [degF] [facility] 04-20-2022 14:56-0400 Diastolic blood pressure 72 mm[Hg] [facility] 04-20-2022 14:56-0400 Heart rate 69 /min [facility] 04-20-2022 14:56-0400 Respiratory rate 18 /min [facility] 04-20-2022 14:56-0400 SaO2% (BldA) [Mass fraction] 99 % [facility] 04-20-2022 14:56-0400 Systolic blood pressure 111 mm[Hg] [facility] 04-03-2022 19:17-0400 Hourly Rounding Kaylinn Dokken [facility] 04-03-2022 19:17-0400 Promise to Return Kaylinn Dokken [facility] 04-03-2022 19:15-0400 Diastolic blood pressure 71 mm[Hg] Kaylinn Dokken [facility] 04-03-2022 19:15-0400 Heart rate 63 /min Kaylinn Dokken [facility] 04-03-2022 19:15-0400 Mean blood pressure 82 mm[Hg] Kaylinn Dokken [facility] 04-03-2022 19:15-0400 Respiratory rate 18 /min Kaylinn Dokken [facility] 04-03-2022 19:15-0400 SaO2% (BldA) [Mass fraction] 100 % Kaylinn Dokken [facility] 04-03-2022 19:15-0400 Systolic blood pressure 105 mm[Hg] Kaylinn Dokken [facility] 04-03-2022 17:09-0400 Body temperature 98.06 [degF] Kaylinn Dokken [facility] 04-03-2022 17:09-0400 Diastolic blood pressure 83 mm[Hg] Kaylinn Dokken [facility] 04-03-2022 17:09-0400 Heart rate 87 /min Kaylinn Dokken [facility] 04-03-2022 17:09-0400 Respiratory rate 18 /min Kaylinn Dokken [facility] 04-03-2022 17:09-0400 SaO2% (BldA) [Mass fraction] 99 % Kaylinn Dokken [facility] 04-03-2022 17:09-0400 Systolic blood pressure 119 mm[Hg] Kaylinn Dokken [facility] 02-06-2022 09:06-0400 Blood Pressure Location Aimee Walker [facility] 02-06-2022 09:06-0400 Body temperature 97.52 [degF] Aimee Walker [facility] 02-06-2022 09:06-0400 Diastolic blood pressure 72 mm[Hg] Aimee Walker [facility] 02-06-2022 09:06-0400 Heart rate 81 /min Aimee Walker [facility] 02-06-2022 09:06-0400 SaO2% (BldA) [Mass fraction] 100 % Aimee Walker [facility] 02-06-2022 09:06-0400 Systolic blood pressure 130 mm[Hg] Aimee Walker [facility] 01-29-2022 10:31-0400 Blood Pressure Location Aimee Walker [facility] 01-29-2022 10:31-0400 Body temperature 97.16 [degF] Aimee Walker [facility] 01-29-2022 10:31-0400 Diastolic blood pressure 76 mm[Hg] Aimee Walker [facility] 01-29-2022 10:31-0400 Heart rate 94 /min Aimee Walker [facility] 01-29-2022 10:31-0400 SaO2% (BldA) [Mass fraction] 98 % Aimee Walker [facility] 01-29-2022 10:31-0400 Systolic blood pressure 118 mm[Hg] Aimee Walker [facility] 02-01-2021 07:15-0400 Body temperature 97.7 [degF] Berry Lawson MD Work Phone: [employer] Work Phone: 02-01-2021 07:15-0400 Diastolic blood pressure 63 mm[Hg] Berry Lawson MD Work Phone: [facility] Work Phone: 02-01-2021 07:15-0400 Heart rate 82 /min Berry Lawson MD Work Phone: [facility] Work Phone: 02-01-2021 07:15-0400 Respiratory rate 18 /min Berry Lawson MD Work Phone: [facility] Work Phone: 02-01-2021 07:15-0400 SaO2% (BldA) [Mass fraction] 98 % Berry Lawson MD Work Phone: [facility] Work Phone: 02-01-2021 07:15-0400 Systolic blood pressure 110 mm[Hg] Berry Lawson MD Work Phone: [facility] Work Phone: 01-30-2021 16:54-0400 Body height 170.2 cm Berry Lawson MD Work Phone: [facility] Work Phone: 01-30-2021 16:54-0400 Body mass index (BMI) [Ratio] 38.53 kg/m2 Berry Lawson MD Work Phone: [facility] Work Phone: 01-30-2021 16:54-0400 Body weight 111.58 kg Berry Lawson MD Work Phone: [facility] Work Phone: 01-30-2021 14:27-0400 Diastolic blood pressure 66 mm[Hg] David Nash MD Work Phone: [facility] Work Phone: 01-30-2021 14:27-0400 Heart rate 93 /min David Nash MD Work Phone: [facility] Work Phone: 01-30-2021 14:27-0400 Respiratory rate 16 /min David Nash MD Work Phone: [facility] Work Phone: 01-30-2021 14:27-0400 SaO2% (BldA) [Mass fraction] 98 % David Nash MD Work Phone: [facility] Work Phone: 01-30-2021 14:27-0400 Systolic blood pressure 107 mm[Hg] David Nash MD Work Phone: [facility] Work Phone: 01-30-2021 09:51-0400 Body temperature 97.2 [degF] David Nash MD Work Phone: [facility] Work Phone: 01-26-2021 09:00-0400 Body temperature 98.2 [degF] Gamaliel Harris DO Work Phone: [facility] Work Phone: 01-26-2021 09:00-0400 Diastolic blood pressure 77 mm[Hg] Gamaliel Harris DO Work Phone: [facility] Work Phone: 01-26-2021 09:00-0400 Heart rate 90 /min Gamaliel Harris DO Work Phone: [facility] Work Phone: 01-26-2021 09:00-0400 Respiratory rate 16 /min Gamaliel Harris [employer] Work Phone: [employer] Phone: 01-26-2021 09:00-0400 SaO2% (BldA) [Mass fraction] 96 % Gamaliel Harris [employer] Work Phone: [employer] Phone: 01-26-2021 09:00-0400 Systolic blood pressure 111 mm[Hg] Gamaliel Harris [employer] Work Phone: [employer] Phone: 01-08-2021 07:35-0400 Body temperature 97.81 [degF] Gamaliel Harris [employer] Work Phone: [employer] Phone: 01-08-2021 07:35-0400 SaO2% (BldA) [Mass fraction] 97 % Gamaliel Harris [employer] Work Phone: [employer] Phone: 01-08-2021 07:29-0400 Diastolic blood pressure 77 mm[Hg] Gamaliel Harris [employer] Work Phone: [employer] Phone: 01-08-2021 07:29-0400 Heart rate 87 /min Gamaliel Harris [employer] Work Phone: [employer] Phone: 01-08-2021 07:29-0400 Respiratory rate 18 /min Gamaliel Harris [employer] Work Phone: [employer] Phone: 01-08-2021 07:29-0400 Systolic blood pressure 123 mm[Hg] Gamaliel Harris [employer] Work Phone: [employer] Phone: 01-07-2021 06:29-0400 Body height 170.2 cm Gamaliel Harris [employer] Phone: [employer] Phone: 01-07-2021 06:29-0400 Body mass index (BMI) [Ratio] 40.68 kg/m2 Gamaliel [employer] Phone: [employer] Phone: 01-07-2021 06:29-0400 Body weight 117.8 kg Gamaliel Harris [employer] Phone: [employer] Phone: 12-24-2020 10:33-0400 Body height 170.2 cm [facility] [employer] Phone: 12-24-2020 10:33-0400 Body mass index (BMI) [Ratio] 42.76 kg/m2 [facility] [employer] Phone: 12-24-2020 10:33-0400 Body temperature 97.7 [degF] [facility] [employer] Phone: 12-24-2020 10:33-0400 Body weight 123.83 kg [facility] 2 [employer] [facility] Phone: 12-24-2020 10:33-0400 Diastolic blood pressure 76 mm[Hg] [facility] [employer] Phone: 12-24-2020 10:33-0400 Heart rate 71 /min [facility] [employer] Phone: 12-24-2020 10:33-0400 Respiratory rate 18 /min [facility] Work Phone: 12-24-2020 10:33-0400 SaO2% (BldA) [Mass fraction] 98 % St [facility] Work Phone: 12-24-2020 10:33-0400 Systolic blood pressure 115 mm[Hg] [facility] 2 [facility] Work Phone: 09-28-2020 08:40-0500 BP Diastolic 75 mm[Hg] Gamaliel [place], [place] 09-28-2020 08:40-0500 BP Systolic 117 mm[place]Hg] [place] 09-28-2020 08:40-0500 Pulse (Heart Rate) 84 /min Gamaliel [place] 09-28-2020 08:40-0500 Pulse Oximetry 100 % Gamaliel [place] 09-28-2020 08:25-0500 Body Temperature 96.8 [degF] [place] 09-28-2020 08:25-0500 Respiratory Rate 23 /[place] 09-28-2020 07:07-0500 BMI (Body Mass Index) 45.66 kg/m2 Gamaliel [place] 09-28-2020 07:07-0500 Body weight 132.22 [place] 09-28-2020 07:07-0500 Height 170.2 cm [place] Encounters Encounter Date Encounter Type Care Provider Facility Start: 09-18-2023 End: 09-18-2023 ambulatory JENNIE AMES [facility] Start: 09-18-2023 End: 09-18-2023 Subsequent hospital visit by physician Gamaliel Harris DO Work Phone: [facility] Start: 08-31-2023 End: 09-01-2023 ambulatory HEYDIR Fallon NAFSATHISH Facility:[facility] Start: 08-28-2023 End: 08-28-2023 ambulatory Imad Asaad Other [facility] Other Start: 08-28-2023 Telephone encounter Imad Asaad [facility] Start: 08-18-2023 End: 08-21-2023 ambulatory SWAPNA [facility] Start: 08-15-2023 End: 08-15-2023 Emergency department patient visit Yoli Norris Facility:[facility] Start: 08-15-2023 End: 08-15-2023 Emergency department patient visit DO Jennie Ames Work Phone: [facility] Work Phone: Start: 08-14-2023 End: 08-14-2023 Emergency department patient visit Jennie Ames Facility:[facility] Start: 08-14-2023 End: 08-14-2023 Emergency department patient visit DO Jennie Ames Work Phone: [facility] Work Phone: Start: 08-13-2023 End: 08-13-2023 ambulatory Imad Asaad Other [facility] Other Start: 08-13-2023 Office outpatient ne w 45 minutes Imad Asaad [facility] Start: 08-12-2023 End: 08-15-2023 [facility] Start: 07-30-2023 End: 07-31-2023 ambulatory SWAPNA DASILVA [facility] Start: 07-08-2023 End: 07-08-2023 ambulatory Ania Javed Other [facility] Other Start: 07-08-2023 Office outpatient ne w 20 minutes Ania Javed [facility] Start: 07-03-2023 End: 07-03-2023 Emergency department patient visit Jose Maria Nair Facility:[facility] Start: 07-03-2023 End: 07-03-2023 Emergency department patient visit DO Jennie Ames Work Phone: [facility] Work Phone: Start: 07-02-2023 End: 07-02-2023 Emergency department patient visit Bakari Chester Facility:[facility] Start: 07-02-2023 End: 07-02-2023 Emergency department patient visit Bakari Chester [facility] Start: 06-10-2023 End: 06-10-2023 ambulatory EILEEN MANZANO Facility:[facility] Start: 06-09-2023 End: 06-09-2023 Emergency department patient visit Alexis Shukla Facility:[facility] Start: 06-03-2023 Refill Eileen Manzano MD Work Phone: Neurology Comment on above: Refill Request Start: 04-13-2023 ambulatory Lindy Howe Facility :[facility] Start: 03-19-2023 End: 03-20-2023 ambulatory COOKER MEAL GANESH CORDERO Facility:[facility] Start: 03-19-2023 End: 03-19-2023 Patient encounter procedure GANESH CORDERO [facility] Start: 01-29-2023 End: 01-29-2023 ambulatory EILEEN MANZANO Facility:[facility] Start: 01-15-2023 End: 01-15-2023 Emergency department patient visit Bakari Chester Facility:[facility] Start: 01-15-2023 End: 01-15-2023 Emergency department patient visit Bakari Chester [facility] Start: 01-02-2023 End: 01-03-2023 ambulatory Nakia Mcqueen Facility:[facility] Start: 01-02-2023 End: 01-02-2023 Patient encounter procedure Nakia Mcqueen [facility] Start: 12-12-2022 Refill Eileen Manzano MD Work Phone: Neurology Comment on above: Refill Request Start: 12-05-2022 End: 12-05-2022 ambulatory Gal Ngo Thiago Facility:[facility] Start: 12-05-2022 End: 12-05-2022 Admission to same day surgery center Gal Ngo Thiago [facility] Start: 11-21-2022 End: 11-22-2022 ambulatory Gal Marinten Facility:[facility] Start: 11-21-2022 End: 11-21-2022 Patient encounter procedure Gal Das [facility] Start: 11-20-2022 End: 11-20-2022 ambulatory EILEEN MANZANO Facility:[facility] Start: 11-20-2022 End: 11-20-2022 Patient encounter procedure Eileen Manzano MD Work Phone: Neurology Comment on above: Idiopathic intracran ial hypertension (Primary Dx); Depression, unspecified depression type; Primary hypertension; Hx of gastric bypass; H/O foot surgery Start: 11-03-2022 End: 11-04-2022 ambulatory Nakia Mcqueen Facility:[facility] Start: 11-03-2022 End: 11-03-2022 Patient encounter procedure Nakia Mcqueen [facility] Start: 10-30-2022 End: 10-30-2022 ambulatory STEFANIE Kaplan Facility: Start: 10-23-2022 End: 10-24-2022 ambulatory Gal Das Facility:[facility] Start: 10-23-2022 End: 10-23-2022 Lab Drop off Gal Das [facility] Start: 10-14-2022 End: 10-15-2022 ambulatory Rita Loja Facility:[facility] Start: 10-14-2022 End: 10-14-2022 Patient encounter procedure Rita Loja [facility] Start: 09-24-2022 End: 09-25-2022 ambulatory Aimee Walker Facility:[facility] Start: 09-24-2022 End: 09-24-2022 Patient encounter procedure Aimee R Walker [facility] Start: 08-22-2022 End: 08-23-2022 ambulatory Rahul Salinas Facility:[facility] Start: 08-22-2022 End: 08-22-2022 Patient encounter procedure Rahul Salinas [facility] Start: 08-20-2022 End: 08-20-2022 Emergency department patient visit Jose Correia Facility:[facility] Start: 08-19-2022 End: 08-19-2022 ambulatory DO Jennie Ames Work Phone: [facility] Work Phone: Start: 08-19-2022 End: 08-19-2022 Patient encounter procedure DO Jennie Ames Work Phone: [facility] [facility] Start: 08-18-2022 End: 08-18-2022 Emergency department patient visit Alexis Shukla Facility:[facility] Start: 08-18-2022 End: 08-18-2022 ambulatory RAMSES MARTINEZ . Facility: Start: 08-18-2022 End: 08-18-2022 Emergency department patient visit Alexis Shukla [facility] Start: 08-16-2022 End: 08-16-[address] NEW Kaplan Facility: Start: 08-14-2022 End: 09-16-2022 ambulatory Alexis Shukla Facility:CD:[id number] Start: 08-12-2022 ambulatory Facility:[id number] Start: 08-11-2022 End: 08-12-2022 Evaluation and management of inpatient DO Jennie Ames Work Phone: [facility] Start: 08-11-2022 End: 08-12-2022 observation encounter DO Jennie Ames Work Phone: [facility] Work Phone: Start: 08-11-2022 End: 08-11-[address] WEI PHAM Facility:H1 Start: 08-08-2022 End: 08-08-2022 Emergency department patient visit Bakari Chester Facility:[facility] Start: 08-08-2022 End: 08-08-2022 Emergency department patient visit Bakari Chester [facility] Start: 07-21-2022 End: 07-21-2022 Patient encounter procedure Aimee Walker [facility] Start: 07-19-2022 End: 07-19-[address] DOCTOR CAMARILLO Facility:H1 Start: 07-18-2022 Telephone encounter Eduin Leiva) [facility] Comment on above: Appointment Start: 06-12-2022 End: 06-12-[address] CAROLYNE RALPH Facility:H1 Start: 06-10-2022 End: 06-10-2022 Patient encounter procedure Alexis Rivers [facility] Start: 05-30-2022 End: 05-30-2022 ambulatory GABRIELA CAMARGO Facility:H1 Start: 05-13-2022 End: 05-13-2022 Patient encounter procedure Alexis Rivers [facility] [place] Start: 04-22-2022 End: 04-22-2022 Patient encounter procedure Aimee Walker [facility] Start: 04-21-2022 End: 04-21-2022 Patient encounter procedure Aimee Walker [facility] Start: 04-20-2022 End: 04-20-2022 Emergency department patient visit Jose Correia [facility] Start: 04-07-2022 End: 04-07-[address] LADY SANCHEZ . Facility:H1 Start: 04-03-2022 End: 04-03-2022 Emergency department patient visit Larry Baker [facility] Start: 04-03-2022 End: 04-03-2022 Well adult monitoring check done Larry Baker [facility] Start: 02-12-2022 End: 02-12-2022 Patient encounter procedure Amee Gonzalez PA-C Work Phone: Otolaryngology Comment on above: Burning tongue (Prim masoud Dx); Irritation of oral cavity Start: 02-08-2022 End: 02-08-2022 ambulatory STEFANIE SINGH . Facility:H1 Start: 02-06-2022 End: 02-06-2022 Patient encounter procedure Aimee Walker [facility] Start: 01-30-2022 End: 01-30-2022 ambulatory GABRIELA CAMARGO Facility:H1 Start: 01-29-2022 End: 01-29-2022 Patient encounter procedure Aimee Walker [facility] Start: 01-27-2022 ambulatory Eduin Mckee MD Work Phone: Plastic Surgery Comment on above: questions Start: 01-10-2022 Telephone encounter Eduin marx MD Work Phone: Plastic Surgery Comment on above: Patient Question; Ap pointment Start: 01-09-2022 End: 01-09-2022 Patient encounter procedure Aimee Walker [facility] Start: 12-27-2021 Telephone encounter Eduin marx MD Work Phone: Plastic Surgery Comment on above: Orders Scheduling Start: 11-16-2021 End: 11-17-[address] WILEY ZABALA Facility:H1 Start: 02-04-2021 End: 02-06-2021 Subsequent hospital visit by physician [facility] Cat Scan Room [facility] CT Scan Comment on above: Omental infarction ( HCC) Start: 01-30-2021 End: 02-01-2021 Evaluation and management of inpatient Berry Lawson MD Work Phone: [facility] Ortho/Med Surg Comment on above: Surgery, elective (P rimary Dx); Omental infarction (HCC) Start: 01-30-2021 End: 01-30-2021 Emergency department patient visit David Nash MD Work Phone: [facility] ED Comment on above: Generalized abdomina l pain (Primary Dx) Start: 01-26-2021 End: 01-26-2021 Subsequent hospital visit by physician Gamaliel Harris DO Work Phone: [facility] Med Surg Comment on above: Dehydration Start: 01-07-2021 End: 01-08-2021 Evaluation and management of inpatient Gamaliel Harris DO Work Phone: [facility]o/Med Surg Comment on above: Post-op pain (Primar y Dx) Start: 01-03-2021 End: 01-04-2021 ambulatory [facility] Start: 01-03-2021 End: 01-03-2021 Patient encounter status Staz Schedule STAZ Covid Scre ening Start: 01-03-2021 End: 01-03-2021 Subsequent hospital visit by physician Edgardo Mcclendon Screening Schedule EDGARDO Covid Screening Comment on above: Preop testing (Prima ry Dx) Start: 12-24-2020 End: 12-28-2020 Subsequent hospital visit by physician Christiane Salinas Xr [facility] Radiology Comment on above: Arrived Start: 11-01-2020 End: 11-03-2020 Subsequent hospital visit by physician Chaitanya Jett Radiologist [facility] Comment on above: Gastroesophageal ref lux disease with esophagitis without hemorrhage Start: 10-26-2020 End: 10-26-2020 Subsequent hospital visit by physician Lyle Covzac Screening Schedule LYLE Covid Screening Comment on above: Preoperative testing Start: 09-28-2020 End: 09-28-2020 Subsequent hospital visit by physician Gamaliel Harris [place] Start: 09-24-2020 End: 09-28-2020 Subsequent hospital visit by physician Chaitanya Mcclendon19 Pat Screening Schedule LYLE PRE ADMIT Comment on above: Preoperative testing Start: 11-01-2015 Patient encounter procedure LINDY COTE Facility:[facility] Procedures Date Procedure Procedure Detail Performing Clinician Start: 08-15-2023 Computed tomography of abdomen and pelvis with contrast DO Jennie Ames Work Phone: Start: 12-05-2022 Hysterectomy Gal Ochoa en Start: 08-12-2022 MRI of head DO Jennie carlos Work Phone: Start: 08-12-2022 MRI venography DO Jennie xie Work Phone: Start: 02-04-2021 Ct abdomen & pelvis w/contrast material Gamaliel Harris DO Work Phone: Start: 02-01-2021 BASIC METABOLIC PANE L W/ REFLEX TO MG FOR LOW K Ruiz Joel DO Work Phone: Start: 02-01-2021 Blood count complete auto&auto difrntl wbc Ruiz Joel DO Work Phone: Start: 01-31-2021 BASIC METABOLIC PANE L W/ REFLEX TO MG FOR LOW K Nicolasa I Mimi DO Work Phone: Start: 01-31-2021 Blood count complete auto&auto difrntl wbc Nicolasa Le DO Work Phone: Start: 01-30-2021 End: 01-30-2021 Gonadotropin chorionic qualitative Noreen Mckeon MD Work Phone: Start: 01-30-2021 Urinalysis microscopic only David Nash MD Work Phone: Start: 01-30-2021 Urnls dip stick/tabl et rgnt auto w/o microscopy David Nash MD Work Phone: Start: 01-30-2021 Ct abdomen & pelvis w/contrast material David Nash MD Work Phone: Start: 01-30-2021 Assay of lipase David Nash MD Work Phone: Start: 01-30-2021 Lactate [Moles/volum e] in Serum or Plasma David Nash MD Work Phone: Start: 01-08-2021 Radiologic exam esop hagus single contrast study Gamaliel Chinton DO Work Phone: Start: 01-08-2021 Basic metabolic pane l calcium total Gamaliel Nirav Alee [employer] Work Phone: Start: 01-07-2021 Basic metabolic pane l calcium total Gamaliel R Alee DO Work Phone: Start: 01-07-2021 End: 01-07-2021 Laps gstr rstcv px w/byp tian-en-y limb <150 cm Gamaliel Gastelum Alee [employer] Work Phone: Start: 01-07-2021 Urine test visual color cmprsn meths Gamaliel Gastelum Alee DO Work Phone: Start: 12-24-2020 Assay of nicotine Enmanuel Gastelum Alee DO Work Phone: Start: 12-24-2020 Basic metabolic pane l calcium total Gamaliel Nirav Alee [employer] Work Phone: Start: 12-24-2020 Radiologic exam ches t 2 views Gamaliel Harris Work Phone: Start: 12-24-2020 Ecg routine ecg w/le ast 12 lds trcg only w/o i&r Gamaliel Gastelum Alee SNOWDEN Work Phone: Start: 12-24-2020 EKG REPORT Hpf Scanni ng Start: 11-01-2020 Radex upper gi w/wo glucagon/delay imges w/o kub Gamalielkemar Harris Work Phone: Start: 09-24-2020 COVID-19 Obdulio Nj botelloui Work Phone: Start: 02-16-2020 Endoscopic plantar fasciotomy Aimee Walker Start: 06-02-2019 Endoscopic plantar fasciotomy Aimee Walker Comment on above: Endoscopic plantar f asciotomy, right foot Start: 02-11-2019 LEFT ELBOW ULNAR NER VE DECOMPRESSION Aimee Walker x3 Aimee Walker Esophagogastrostomy, antesternal or antethoracic Aimee Walker ft (qualifier value) Aimeeerin Walker Comment on above: reconstruction H/O: tubal ligation Aimee Walker Investigation of transfusion reaction DO Jennie Ames Work Phone: Lumbar puncture to l ower intracranial pressure Rahul Salinas Plan of Treatment Date Care Activity Detail Author Start: 09-18-2023 End: 09-18-2023 Egd transoral biopsy single/multiple EGD BIOPSY Gastroesophageal reflux disease, unspecified whether esophagitis present Obesity (BMI 30-39.9) 09/18/2023 8:14 AM [facility] Start: 05-15-2023 COVID-19 Vaccine () COVID-19 Vaccine () [facility] Start: 05-15-2023 Influenza vaccination Influenza Vacc ine (#1) [facility] Start: 04-14-2023 Influenza vaccination Flu vaccine (# 1) [facility] Start: 08-19-2022 Cerebrospinal fluid culture [facility] Start: 08-19-2022 End: 08-19-2022 [facility] Start: 08-12-2022 [facility] Start: 08-12-2022 Glucose [Mass/volume ] in Cerebral spinal fluid [facility] Start: 08-12-2022 Protein [Mass/volume ] in Cerebral spinal fluid [facility] Start: 08-12-2022 [facility] Start: 08-11-2022 Hospital admission [facility] Start: 08-11-2022 Referral to neurologist [facility] Start: 08-11-2022 [facility] Start: 05-15-2022 Influenza vaccination [facility] Start: 09-29-2021 COVID-19 VACCINE (3 - Booster for Pfizer series) COVID-19 VACCINE (3 - Booster for Pfizer series) [facility] Start: 09-14-2021 DEPRESSION ASSESSMENT DEPRESSION ASS ESSMENT [facility] Start: 06-24-2021 COVID-19 VACCINE (3 - Booster for Pfizer series) COVID-19 VACCINE (3 - Booster for Pfizer series) [facility] Start: 06-24-2021 Covid-19 Vaccine (3 - Pfizer series) Covid-19 Vaccine (3 - Pfizer series) [facility] Start: 03-06-2021 End: 03-06-2021 Patient encounter procedure 03/06/2021 Office Visit Bariatrics Gamaliel Harris DO [address] [place] [phone] [facility] Invasive Bariatric Surg Start: 02-20-2021 End: 02-20-2021 Patient encounter procedure 02/20/2021 Office Visit Bariatrics Gamaliel Harris DO [address] [place] [phone] [facility] Start: 01-18-2021 End: 01-18-2021 Office Visit 01/18/2021 Office Visit Bariatrics Gamaliel Harris, DO [address] [facility] [address] [place] [phone] [facility] Invasive Bariatric Surg Start: 01-07-2021 End: 01-07-2021 Hospital Encounter [facility] [place] Comment on above: XI LAPAROSCOPIC ROBO TIC GASTRIC BYPASS TIAN-EN-Y, LIVER BIOPSY, EGD- GI UNIT SCHEDULED. Start: 01-03-2021 End: 01-03-2021 [facility] Comment on above: Arrived Start: 12-31-2020 End: 12-31-2021 COVID-19 COVID-19 Lab Routine Preop testing Expected: 12/31/2020, Expires: 12/31/2021 [facility] Work Phone: Comment on above: Expected: 12/31/2020 , Expires: 12/31/2021 Start: 11-21-2020 End: 11-21-2020 Office Visit 11/21/2020 Office Visit Bariatrics Ganesh Cordero, SUBACUTE NURSE - PRODUCT SAFETY TESTER [address] [facility] [place] [phone] [facility] Start: 11-01-2020 End: 11-01-2020 Appointment 11/01/2020 Appointment Radiology Radiologist, [facility] Start: 10-24-2020 End: 10-24-2020 Office Visit [facility] Start: 09-26-2020 Annual Wellness Visi t (AWV) Annual Wellness Visit (AWV) [facility] [place] [place] Start: 2018 HPV TESTING HPV TESTING [facility] Start: 2018 Screening for malign ant neoplasm of cervix [facility] Start: 2009 PAP TESTING PAP TESTING [facility] Start: 2009 Screening for malign ant neoplasm of cervix [facility] Start: 12-18-2007 DTaP/Tdap/Td vaccine (1 - Tdap) DTaP/Tdap/Td vaccine (1 - Tdap) [facility] Start: 12-18-[address] [facility] Start: 2006 ANNUAL PCP TEAM UTILIZATION MANAGEMENT UM NURSE EDGAR DISEASE VISIT ANNUAL PCP TEAM CHRONIC DISEASE VISIT [facility] Start: 2006 BP CONTROLLED (<130/80) BP CONTROLLE D (<130/80) [facility] Start: 2006 HEPATITIS C SCREENING HEPATITIS C SC REENING [facility] Start: 2006 Hepatitis C screening Hepatitis C [facility] Start: 2006 HIV SCREENING HIV SCREENING [facility] Start: 2004 COVID-19 Vaccine (1) COVID-19 Vaccin e (1) [employer] Phone: Start: 12-18-2003 HIV screening HIV screen [facility] [employer] Start: 2000 Adult depression screening assessment DEPRESSION SCREENING [facility] Start: 2000 COVID-19 Vaccine (1) COVID-19 Vaccin e (1) [employer] Phone: Start: 2000 Depression [facility] Start: 1994 PNEUMOCOCCAL (1 - PCV) PNEUMOCOCCAL (1 - PCV) [facility] Start: 1994 Pneumococcal 0-64 ye ars Vaccine (1 - PCV) Pneumococcal 0-64 years Vaccine (1 - PCV) [facility] Start: 1994 Pneumococcal vaccination Pneumococcal Vaccine (1 - PCV) [facility] Start: 1989 Varicella vaccine (1 of 2 - 2-dose childhood series) Varicella vaccine (1 of 2 - 2-dose childhood series) [facility] Start: 1988 HEPATITIS B (1 of 3 - 3-dose series) HEPATITIS B (1 of 3 - 3-dose series) [facility] Start: 1988 Hepatitis B Vaccine (1 of 3 - 3-dose series) Hepatitis B Vaccine (1 of 3 - 3-dose series) [facility] Start: 1988 Hepatitis C screening Hepatitis C [facility] [place] Bacteria identified in Unspecified specimen by Aerobe culture [facility] Work Phone: Bacteria identified in Unspecified specimen by Anaerobe culture [facility] Work Phone: Basic Metabolic Pane l w/ Reflex to MG Basic Metabolic Panel w/ Reflex to MG Lab Routine Daily until discontinued starting 02/01/2021, 1 completed [employer] Work Phone: Comment on above: Daily until disconti nued starting 02/01/2021, 1 completed End: 09-18-2023 Blood glucose - POCT Blood glucose - POCT Point of Care Testing Routine One Time for 1 Occurrences starting 09/18/2023 until 09/18/2023 [facility] [employer] Comment on above: One Time for 1 Occur rences starting 09/18/2023 until 09/18/2023 Cell count, cerebrospinal fluid [facility] [employer] Work Phone: Cerebrospinal fluid examination [facility] [employer] Work Phone: Continuous pulse oximetry Pulse oximetry, continuous Respiratory Care Routine Every 4hr until discontinued starting 01/07/2021 [employer] Work Phone: Comment on above: Every 4hr until disc ontinued starting 01/07/2021 End: 10-26-2020 COVID-19 COVID-19 Lab Routine Preoperative testing 1 Occurrences starting 10/26/2020 until 10/26/2020 [employer] Work Phone: Comment on above: 1 Occurrences starti ng 10/26/2020 until 10/26/2020 COVID-19 [employer] Work Phone: End: 01-03-2021 COVID-19 COVID-19 Lab Routine Preop testing 1 Occurrences starting 01/03/2021 until 01/03/2021 [employer] Work Phone: Comment on above: 1 Occurrences starti ng 01/03/2021 until 01/03/2021 Evaluation of cerebrospinal fluid [facility] [employer] Work Phone: Fluid sample volume measurement [facility] [employer] Work Phone: Glucose [Mass/volume ] in Cerebral spinal fluid [facility] Work Phone: End: 09-18-2023 INITIATE PACU OXYGEN THERAPY PROTOCOL Initiate PACU Oxygen Therapy Protocol Respiratory Care Routine Continuous until discontinued starting 09/18/2023 [facility] [employer] [place] [employer] Comment on above: Continuous until dis continued starting 09/18/2023 Meningitis+Encephali tis pathogens DNA and RNA panel - Cerebral spinal fluid by JOSÉ MIGUEL with non-probe detection [facility] Work Phone: Microscopic observat ion [Identifier] in Unspecified specimen by Gram stain [facility] Work Phone: End: 12-20-2023 Mra head w/o & w/contrast material MRV BRAIN WO/W IVCON Radiology Routine Idiopathic intracranial hypertension 1 Occurrences starting 11/20/2022 until 12/20/2023 [facility] Work Phone: Comment on above: 1 Occurrences starti ng 11/20/2022 until 12/20/2023 Nebulizer therapy HHN Treatment Respiratory Care Routine TID until discontinued starting 01/07/2021 [facility] [employer] Work Phone: Comment on above: TID until discontinu ed starting 01/07/2021 Nucleated cells [#/volume] in Cerebral spinal fluid by Manual count [facility] Work Phone: Oxygen therapy [Mini mum Data Set] [facility] [employer]- [place], [place] Comment on above: Daily until disconti nued starting 09/28/2020 Daily until disconti nued starting 01/07/2021 Daily until disconti nued starting 01/31/2021 Oxygen therapy [Mini mum Data Set] Initiate Oxygen Therapy Protocol Respiratory Care Routine As Needed until discontinued starting 09/18/2023 [facility] [employer] Work Phone: Comment on above: As Needed until disc ontinued starting 09/18/2023 Patient Education [facility] Work Phone: Patient referral [facility] Work Phone: Phase I & II - meter ed glucose Phase I & II - metered glucose Point of Care Testing Routine As Needed until discontinued starting [facility]28[facility]2020 [facility] on above: As Needed until disc ontinued starting 09/28/2020 End: 09-28-2020 , urine POCT , urine POCT Point of Care Testing Routine One Time for 1 Occurrences starting 09/28/2020 until 09/28/2020 [facility] [place] Comment on above: One Time for 1 Occur rences starting 09/28/2020 until 09/28/2020 End: 09-18-2023 , urine POCT , urine POCT Point of Care Testing Routine One Time for 1 Occurrences starting 09/18/2023 until 09/18/2023 [facility] Comment on above: One Time for 1 Occur rences starting 09/18/2023 until 09/18/2023 Protein [Mass/volume ] in Cerebral spinal fluid [facility] Work Phone: Red blood cell count [facility] Work Phone: Spirometry panel Incentive pete metry Respiratory Care Routine Every 2hr while awake until discontinued starting 01/07/2021 [facility] Work Phone: Comment on above: Every 2hr while awak e until discontinued starting 01/07/2021 Surgical Pathology Surgical Path ology Lab Routine Release Upon Ordering for 1 Occurrences starting 09/28/2020 [facility] Comment on above: Release Upon Orderin g for 1 Occurrences starting 09/28/2020 [facility] Immunizations Immunization Date Immunization Notes Care Provider Fa tremaine 04-29-2021 SARS-CoV-2 (COVID-19 ) mRNA BNT-162b2 vax Aimee Walker [facility] 04-08-2021 SARS-CoV-2 (COVID-19 ) mRNA BNT-162b2 vax Aimee Walker [facility] 07-23-2020 influenza virus vaccine, unspecified formulation Eileen Manzano MD Work Phone: [facility] 07-09-2020 influenza virus vaccine, unspecified formulation Aimee Walker [facility] NEGATED: Highlighted row has not occurred!07-21-2022 influenza virus vaccine, unspecified formulation Aimee Walker [facility] Payers Date Payer Category Payer Medicare [id number] [address] [facility] MEDICAID [id number] 2021-Present [phone] [address] [place] [address] Medicaid [id number] 2021 Medicaid [id number] 2021 Medicare HUMANA MEDICARE HUMANA MEDICARE PPO [id number] 2021-Present [phone] [address] [address] [place] [address] PPO [id number] 2021 Medicare [id number] .[id number] 2020 Medicare [id number] [id number] .3.601001.315 1988 Unknown [id number] 2.16.840.1.344762.3.579.2.7 32 1988 Unknown [id number] 2.16.840.1.905501.3.579.2.1 77 1988 Unknown [id number] 2.16.840.1.038896.3.579.2.3 56 1988 Unknown [id number] 2.16.840.1.972939.3.579.2.5 93 1988 Unknown [id number] 2.16.840.1.846699.3.579.2.5 93 1988 Unknown [id number] 2.16.840.1.622918.3.579.2.5 93 1988 Unknown [id number] 2.16.840.1.976924.3.579.2.5 93 1988 Unknown [id number] 2.16.840.1.157558.3.579.2.5 93 1988 Unknown [id number] 2.16.840.1.694579.3.579.2.5 93 1988 Unknown [id number] 2.16.840.1.836519.3.579.2.5 93 1988 Unknown [id number] 2.16.840.1.897241.3.579.2.5 93 1988 Unknown [id number] 2.16.840.1.092039.3.579.2.5 93 1988 Unknown [id number] 2.16.840.1.477328.3.579.2.5 93 1988 Unknown [id number] 2.16.840.1.903260.3.579.2.5 93 1988 Unknown [id number] 2.16.840.1.881464.3.579.2.7 27 1988 Unknown [id number] 2.16.840.1.264353.3.579.2.7 27 1988 Unknown [id number] 2.16.840.1.695934.3.579.2.7 27 1988 Unknown [id number] 2.16.840.1.690431.3.579.2.7 27 1988 Unknown [id number] 2.16.840.1.759086.3.579.2.7 27 1988 Unknown [id number] 2.16.840.1.463939.3.579.2.7 27 1988 Unknown [id number] 2.16.840.1.040579.3.579.2.7 27 1988 Unknown [id number] 2.16.840.1.391330.3.579.2.7 27 1988 Unknown [id number] 2.16.840.1.002929.3.579.2.7 27 1988 Unknown [id number] 2.16.840.1.492530.3.579.2.7 27 1988 Unknown [id number] 2.16.840.1.188267.3.579.2.7 27 1988 Unknown [id number] 2.16.840.1.754047.3.579.2.7 27 1988 Unknown [id number] 2.16.840.1.089436.3.579.2.7 27 1988 Unknown [id number] 2.16.840.1.454705.3.579.2.7 27 1988 Unknown [id number] 2.16.840.1.692736.3.579.2.7 27 1988 Unknown [id number] 2.16.840.1.098481.3.579.2.1 73 1988 Unknown [id number] 2.16.840.1.113405.3.579.2.1 73 1988 Unknown [id number] 2.16.840.1.771773.3.579.2.1 74 1988 Unknown [id number] 2.16.840.1.549295.3.579.2.1 75 1959 Medicaid [id number] 1.2.840.201695.1.13.239.2.7 .3.280761.315 1959 Private Health Insurance [id number] 1959 Self-pay [id number] Medicare Medicare [id number] Private Health Insurance [employer] [facility] PF M [id number] Unknown [id number] 2.16.840.1.635964.3.579.2.5 31 Unknown [id number] 2.16.840.1.382019.3.579.2.5 31 Unknown [id number] 2.16.840.1.967941.3.579.2.5 31 Unknown [id number] 2.16.840.1.611623.3.579.2.5 31 Social History Date Type Detail Facility Start: 09-28-2020 End: 01-29-2022 Tobacco smoking status NHIS Former smoker [place] Start: 08-12-2022 End: 08-15-2023 History of tobacco use Current smoker [place] Start: 09-28-2020 End: 04-24-2021 Tobacco use and exposure Never used [place] Start: 09-28-2020 End: 09-18-2023 Alcohol intake Current drinker of alcohol (finding) [place] Start: 09-28-2020 End: 07-03-2022 History SDOH Alcohol Frequency 1 [place] Start: 09-28-2020 Alcohol Comment rare [place] Start: 1990 Sex Assigned At Not on file [place] Start: 12-16-2021 End: 02-06-2022 Exposure to SARS-CoV-2 (event) Not sure [place], [place] End: 03-14-2020 History of tobacco use Cigarette Smoker [employer] [facility] [facility] Phone: Start: 09-28-2020 Alcohol Comment rare [facility] [facility] Phone: Start: 04-24-2021 End: 12-26-2021 Tobacco smoking status NHIS Smokes tobacco daily [facility] Start: 12-26-2021 End: 09-18-2023 Cigarettes smoked current (pack per day) - Reported 1 [facility] Start: 03-18-2010 History SDOH Alcohol Comment beer and wine once a month [facility] Start: 07-01-2021 End: 11-03-2022 Tobacco smoking status Heavy tobacco smoker (finding) [facility] Tobacco smoking status Never [facility] Start: 07-03-2022 End: 09-18-2023 Sex Assigned At Female [facility] Start: 1990 Sex Assigned At Female [facility] Start: 07-03-2022 History SDOH Alcohol Frequency 5 [facility] Start: 07-03-2022 History SDOH Alcohol Std Drinks 4 [facility] Start: 07-03-2022 History SDOH Social Connections Get Together 2 [facility] Start: 07-03-2022 History SDOH Social Connections Living 3 [facility] Do you belong to any clubs or organizations such as episcopalian groups, unions, fraternal or athletic groups, or school groups? No [facility] Are you now , , , , never or living with a partner? [facility] How often to you hav e a drink containing alcohol? 4 or more times a week [facility] How many standard dr inks containing alcohol do you have on a typical day? [address] [facility] How often do you hav e 6 or more drinks on 1 occasion? Daily or almost daily [facility] How hard is it for y ou to pay for the very basics like food, housing, medical care, and heating Not very hard [facility] Do you feel stress - tense, restless, nervous, or anxious, or unable to sleep at night because your mind is troubled all the time - these days [OSQ] To some extent [facility] (I/We) worried iqra er (my/our) food would run out before (I/we) got money to buy more. Sometimes true [facility] The food that (I/we) bought just didn't last, and (I/we) didn't have money to get more. Never true [facility] Start: 01-13-2022 Gender identity Identifies as female gender (finding) [facility] Start: 02-06-2022 Sexual orientation Heterosexual (finding) [facility] How often to you hav e a drink containing alcohol? Never [facility] Functional Status Date Assessment Result Facility 07-02-2023 Functional Status N/A [facility] 01-15-2023 Functional Status N/A [facility] 11-21-2022 Functional Status No [facility] 11-03-2022 Functional Status N/A [facility] 09-24-2022 Functional Status N/A [facility] 08-22-2022 Functional Status N/A [facility] 08-18-2022 Functional Status N/A [facility] 08-12-2022 Functional status Patient at Baseline [facility] Work Phone: 08-08-2022 Functional Status N/A [facility] 07-21-2022 Functional Status N/A [facility] 04-21-2022 Functional Status N/A [facility] 04-20-2022 Functional Status N/A [facility] 04-03-2022 Functional Status N/A [facility] Mental Status Date Assessment Result Facility 08-12-2022 Cognitive function Cognitive Sta tus Patient at Baseline [facility] Work Phone: Clinical Notes 12-24-2020 to 09-18-2023 Discharge Ce Maki RN - 09/16/2023 1:25 PM EST Note Date & Type Note Facility 09-18-2023 Hospital Discharge instructions Gamaliel Harris DO - 09/18/2023 8:29 AM EST POST-ENDOSCOPY INSTRUCTIONS 1. ACTIVITY No driving, operating machinery, or making important decisions for 24 hours. Resume normal activity after 24 hours. You may return to work after 24 hours. 2. DIET EGD: Resume your usual diet unless specified below. Diet Modification: Regular 3. MEDICATIONS (Do not consume alcohol, tranquilizers, or sleeping medications for 24 hours unless advised by your physician) Resume your usual medications 4. PHYSICIAN FOLLOW-UP Please continue with your previously scheduled appointments See your primary care physician as planned. 6. NORMAL CHANGES YOU MAY EXPERIENCE AFTER ENDOSCOPY: EGD: Sore throat, some abdominal pain and cramping. 7. CALL YOUR PHYSICIAN IF YOU EXPERIENCE ANY OF THE FOLLOWING A. Passing blood rectally or vomiting blood (color may be red or black) B. Severe abdominal pain or tenderness (that is not relieved by passing air) C. Fever, chills, or excessive sweating D. Persistent nausea or vomiting E. Redness or swelling at the IV site If you have additional questions, PLEASE call your doctor or the [facility] at documented in this encounter [facility] 09-16-2023 History of Present illness Narrative PAT phone call for /EGD completed with pt. Date/time/location (entrance C) of surgery/procedure verified with pt. NPO after [place] status verified with pt. 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 Instructed pt to take a shower the AM of surgery/procedure and to avoid lotions, creams, jewelry. Encouraged pt to avoid artificial nails and/or nailpolish. Instructed pt to take BP meds with a small sip of water prior to procedure/surgery. documented in this encounter [facility] 09-15-2023 Note HNO ID: [id number] Author: Rahul Godinez DO Service: ? Author Type: Fellow Type: Progress Notes Filed: 09/15/2023 12:00 PM Note Text: [facility] Multidisciplinary Drssjj-Lpjaumxtj-Hujcjbt AND Upper GI Case Conference -- Consensus Note -- Conference Date: 09/15/2023 Case reviewed with physicians from GI, Surgery, AND Radiology services: -- Surgeons - Cristal Rodriguez Augustin, Naffouje, Faith, and Gaurang -- Gastroenterologists - Brando Sinclair -- Radiologist - Donavan Issue(s) Question(s): 32 year old female with a history of tian-en-y gastric bypass in 2020 who presented to clinic with LUQ pain in the setting of an associated pancreatic body cyst. She is a current smoker and drinks alcohol. PETH is 169. Pre-conference plan: - Serial imaging Imaging Review: - MRI with a retroperitoneal cyst that does not appear to arise from the pancreas. No pancreatic duct dilation. This is likely a retroperitoneal cyst. Final Consensus Recommendation(s): - Recommend smoking and alcohol cessation - Re-image in 6 months DO ISATU Moser Surgical Fellow [facility] 08-13-2023 Evaluation note Encounter Date Diagnosis Assessment Notes Jul, Pancreatic cyst (ICD-10 - K86.2) [facility] Other 10-25-2023 Evaluation note* Encounter Date Diagnosis Assessment Notes Treatment Notes Treatment Clinical Notes Jun, Contact with and (suspected) exposure to covid-19 (ICD-10 - Z20.822) Jun, Bronchitis (ICD-10 - J40) Acute bronchitis home care material was printed Drink plenty fluids, get plenty of rest. Take the prednisone as prescribed until gone. Use the albuterol inhaler as prescribed as needed for cough or shortness of breath. Take Delsym or Robitussin as needed for cough. Follow-up with your family physician if no improvement in 2 to 3 days. May return to work on Thursday. Try to stop smoking. Jun, Smoker (ICD-10 - F17.200) [facility] Other 09-27-2023 NoteHNO ID: [id number] Author: Eileen Manzano MD Service: ? Author Type: Physician Type: Progress Notes Filed: 06/10/2023 3:39 PM Note Text: [facility] General Neurology Follow Up / Established Virtual Visit I have communicated my name and active licensure. The patient's identity and physical location were verified at the time of this visit. Either the patient or their legal outbound telemarketing representative has been informed of the risks and benefits of -- and alternatives to -- treatment through a remote evaluation and consents to proceed with the evaluation remotely. 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 Idiopathic intracranial hypertension -- Idiopathic intracranial hypertension: LP opening pressure 23 cm water. Mild papilledema in both eyes. I do not have the MRI results but it seems that there was no other lesions. I discussed with her about the cause of IIH and treatment options. I think switching Topamax to Diamox might provide better effect. I discussed with her about the side effect of Diamox and she agreed. She needs to follow with outbound telemarketing representative every 6 months. In some patients with intracranial hypertension, there might be a concurrent transverse sinus stenosis and transverse sinus stenting may resolve the symptoms. I will do MRV. --HTN --H depression --Headache: there are also tension headache features. But will hold off adding medications while we are trying diamox Plan --MRV brain wo/w contrast --request MRI brain results --Reduce topamax to 50mg for 1-2 weeks, then 25mg for 1-2 weeks, then stop --start acetazolamide (diamox 500mg daily, and increase to twice a day in a week) --Consult ophthalmology --Follow up in 2-4 months HPI/Interval History: She started to have pressure in her head and vision issues in July 2022. She lost all peripheral vision and has tunnel vision. It comes and goes, but occurs everyday. Usually in the morning to late afternoon and resolves after she lays down. She was seen at OSH and LP. She was told openning pressure was 23 cmH2O, . They removed 12cc CSF and headache got beter. Now it's coming back. Initially it's intermettent initially, and now it's quite consistent. Features of headache: constant. Usually in the back or tempos, pressure like feeling, 4/10, with photophobia, no positional change, sometimes nauseated. She gets some tingling in her fingers. She went to see a local neurologist but was told to just keep taking her Topamax. She has been on Topamax for years as a mood stabilizer. She saw optomotrist and was told there were mild pressure building behind her eyes. She has never seen an outbound telemarketing representative. CSF protein 24, Glu 55, Pro 28, She had MRI brain and was told that she has empty sella. She had gastric bypass surgery 2 years ago and lost 100 LB. She did not have weight gain lately. 06/10/2023 Today she looks very uncomfortable on the video. She covers herself with a thick blanket. She said she went to the ER yesterday because she is only felt sick yesterday with shivering, cold, extremely thirsty. She can see everything but she couldn't feel things. She also has been having headache and large amount of saliva. ER did a drug and EtOH test and let her go home. She reported people in the ER saying that she was there for psychiatric issue. She called her PCP and was told to talk with neurology. No COVID test or other infectious work-up. She checked her blood pressure BP 150/104. HR 86. She stopped diamox 2 months ago. She said that she feels good after stopping it. There is no headache or vision issues. She went to ophthalmology and was told the eyes are normal. She said she is taking Cymbalta, Rexalti, Geodon. She is getting injections for alcohol cessation. MRV 01/29/2023 Unremarkable MRV head with and without contrast. General Examination: General: Awake, alert, interactive, covered with a thick blanket, shivering Neurological Exam Mental Status Alert, fully oriented, attentive, with normal cognition, memory, speech. Cr (more content not included)...[id number] Miscellaneous Notes * Telephone Encounter - Bunny Durbin RN - 06/03/2023 4:24 PM EDT Refill request routed to provider for review. * Telephone Encounter - Fabby Fam - 06/03/2023 12:43 PM EDT Physician: Dr Manzano Call from pharmacy requesting refill. Please E-Scribe Last OV: 11/20/22 with Man Future OV: none with Man Requested Prescriptions Pending Prescriptions Disp Refills acetaZOLAMIDE SR (DIAMOX SEQUELS) 500 mg capsule [Pharmacy Med Name: ACETAZOLAMIDE ER 500 MG CAP] 180 capsule 1 Sig: TAKE 1 CAPSULE BY MOUTH TWICE DAILY. START FROM 500MG DAILY, INCREASE TO TWICE A DAY IN A WEEK Pharmacy Name: [facility] Pharmacy Phone #: [phone] Fabby Cassidy [facility] + Plan note Diagnostic Tests Pending * Zinc Level 03/19/23 * PTH Intact 03/19/23 * Vitamin A Level 03/19/23 * Vitamin B1 03/19/23 Future Scheduled Tests Laboratory* CBC w/ Auto Diff 07/21/22 Radiology* MA Mamm Screen w/CAD if perf and 3D [place] 04/21/22 [facility]05-18-2023 NoteHNO ID: [id number] Author: Mychal Ortega RT(R) Service: ? Author Type: Technologist Type: Progress Notes Filed: 01/29/2023 1:19 PM Note Text: Radiology Service Progress Note DATE OF SERVICE: January 29, 2023 TIME: 1:18 PM PATIENT IDENTITY VERIFICATION COMPLETED USING TWO (2) STANDARD IDENTIFIERS: Name and Date of confirmed by patient verbally. FALL SCREENING: Has the patient had 2 falls in the last year or 1 fall with injury or currently using an Ambulatory Assistive Device (Walker, Cane, Wheelchair, Crutches, etc.)? No PATIENT GENDER DATA: Female. status: : No status: NO. PATIENT RELEVANT IMPLANT DATA REVIEWED: Yes ALLERGIES: Reviewed and unchanged CONTRAST ALLERGY: NO. EXAM: MRI - CONTRAST TYPE: GROUP II PERIPHERAL IV DATA: Ambulatory: A peripheral IV was started in the Right antecubital site with a Angio cath: 22 gauge. RADIOLOGY DEPARTMENT: MR; Exam(s) Completed: Head: Sagittal Sinus MRV SIGNATURE: Mychal Ortega RT(R) PATIENT NAME: Shazia Chou DATE: January 29, 2023 TIME: 1:18 [facility]05-04-2023 Hospital Discharge instructions Patient Education 01/15/2023 13:37:29 Nonspecific Chest Pain, Adult Nonspecific Chest Pain, Adult Chest pain is an uncomfortable, tight, or painful feeling in the chest. The pain can feel like a crushing, aching, or squeezing pressure. A person can feel a burning or tingling sensation. Chest paincan also be felt in your back, neck, jaw, shoulder, or arm. This pain can be worse when you move, sneeze, or take a deep breath. Chest pain can be caused by a condition that is life-threatening. This must be treated right away. It can also be caused by something that is not life- threatening. If you have chest pain, it can be hard to know the difference, so it is important to get help right away to make sure that you do not have a serious condition. Some life-threatening causes of chest pain include: Heart attack. A tear in the body's main blood vessel (aortic dissection). Inflammation around your heart (pericarditis). A problem in the lungs, such as a blood clot (pulmonary embolism) or a collapsed lung (pneumothorax). Some non life-threatening causes of chest pain include: Heartburn. Anxiety or stress. Damage to the bones, muscles, and cartilage that make up your chest wall. Pneumonia or bronchitis. Shingles infection (varicella-zoster virus). Your chest pain may come and go. It may also be constant. Your health care provider will do tests and other studies to find the cause of your pain. Treatment will depend on the cause of your chest pain. Follow these instructions at home: Medicines Take bmtf-dkr-xfrvoob and prescription medicines only as told by your health care provider. If you were prescribed an antibiotic medicine, take it as told by your health care provider. Do notstop taking the antibiotic even if you start to feel better. Activity Avoid any activities that cause chest pain. Do not lift anything that is heavier than 10 lb (4.5 kg), or the limit that you are told, until your health care provider says that it is safe. Rest as directed by your health care provider. Return to your normal activities only as told by your health care provider. Ask your health care provider what activities are safe for you. Lifestyle Do not use any products that contain nicotine or tobacco, such as cigarettes, e- cigarettes, and chewing tobacco. If you need help quitting, ask your health care provider. Do not drink alcohol. Make healthy lifestyle changes as recommended. These may include: ?Getting regular exercise. Ask your health care provider to suggest some exercises that are safe for you. ?Eating a heart-healthy diet. This includes plenty of fresh fruits and vegetables, whole grains, low-fat (lean) protein, and low-fat dairy products. A dietitian can help you find healthy eating options. ?Maintaining a healthy weight. ?Managing any other health conditions you may have, such as high blood pressure (hypertension) or diabetes. ?Reducing stress, such as with yoga or relaxation techniques. General instructions Pay attention to any changes in your symptoms. It is up to you to get the results of any tests that were done. Ask your health care provider, or the department that is doing the tests, when your results will be ready. Keep all follow-up visits as told by your health care provider. This is important. You may be asked to go for further testing if your chest pain does not go away. Contact a health care provider if: Your chest pain does not go away. You feel depressed. You have a fever. You notice changes in your symptoms or develop new symptoms. Get help right away if: Your chest pain gets worse. You have a cough that gets worse, or you cough up blood. You have severe pain in your abdomen. You faint. You have sudden, unexplained chest discomfort. You have sudden, unexplained discomfort in your arms, back, neck, or jaw. You have shortness of breath at any time. You suddenly start to sweat, or your skin gets clammy. You feel nausea or you vomit. You suddenly feel lightheaded or dizzy. You have severe weakness, or unexplained weakness or fatigue. Your heart begins to beat quickly, or it feels like it is skipping beats. These symptoms may represent a serious problem that is an emergency. Do not wait to see if the symptoms will go away. Get medical help right away. Call your local emergency services (911 in the [place] Do not drive yourself to the hospital. Summary Chest pain can be caused by a condition that is serious and requires urgent treatment. It may also be caused by something that is not life-threatening. Your health care provider may do lab tests and other studies to find the cause of your pain. Follow your health care provider's instructions on taking medicines, making lifestyle changes, and getting emergency treatment if symptoms become worse. Keep all follow-up visits as told by your health care provider. This includes visits for any further testing if your chest pain does not go away. This information is not intended to replace advice given to you by your health care provider. Make sure you discuss any questions you have with your health care provider. Document Revised: 11/14/2021 Document Reviewed: 11/14/2021 [employer] Patient Education 2022 Anywhere to Go. Follow Up Care 01/15/2023 10:48:45 With:Jennie Ames Address: [address] [place], [place] [address]dict [address], [address] , [place] [id number] [facility] (1) When:01/18/2023 13:32:37 [facility]05-04-2023 Evaluation + Plan noteExtracted from: Title:ED Note Author:Beto Shea PA-C te:01/15/23 Chest pain (R07.9: Chest suraj n, unspecified) Orders: ketorolac, 30 mg = 1 mL, Injection, IV Push, Once, Stop date 01/15/23 11:09:00 EDT, STAT, Start date 01/15/23 11:09:00 EDT, 01/15/23 11:09:00 EDT Automated Diff Basic Metabolic Panel Beta hCG Qual CBC w/ Auto Diff eGFR Hepatic Function Panel Troponin 0 Hr. Troponin 3 Hr. Troponin 6 Hr. Troponin 9 Hr. UA With Cult Reflex Urine Culture XR Chest Single View Diagnostic Tests Pending * Urine Culture 01/15/23 Future Scheduled Tests Laboratory* CBC w/ Auto Diff 07/21/22 Radiology* MA Mamm Screen w/CAD if perf and 3D [place] 04/21/22 [facility]03-31-2023 Miscellaneous Notes* Telephone Encounter - Bunny Durbin RN - 12/12/2022 3:03 PM EDT Spoke with patient and informed that per [facility] pharmacy, there are remaining refills on her Diamox Sequels. She verbalized understanding. * Telephone Encounter - Fabby Cassidy - 12/12/2022 2:32 PM EDT Physician: Dr Manzano Call from patient requesting refill. Please E-Scribe Last OV: 11/20/[address] Manzano Future OV: 03/20/[address] Manzano Requested Prescriptions Pending Prescriptions Disp Refills acetaZOLAMIDE SR (DIAMOX SEQUELS) 500 mg capsule [Pharmacy Med Name: ACETAZOLAMIDE ER 500 MG CAP] 60 capsule 5 Sig: TAKE 1 CAPSULE BY MOUTH TWICE DAILY. START FROM 500MG DAILY, INCREASE TO TWICE A DAY IN A WEEK Pharmacy Name: [facility] Pharmacy Phone #: [phone] Fabby Cassidy [facility] Hospital Discharge instructions Patient Education 12/05/2022 12:15:12 Post Op Patient Instructions - ALANNA (CUSTOM) 12/05/2022 12:15:12 [employer]IP [employer] CONVEYOR TENDER - Post Hysterectomy/Laparotomy/Major Surgery-Thiago (CUSTOM) Instructions post hysterectomy/laparotomy/major surgery It is recommended that you rest at home on the day of discharge, and get to bed early so you get a good night s rest. Gradually increase your activity daily for example: no lifting anything heavier than ten pounds the first week, twenty pounds the second week, and thirty pounds the third week. NO: intercourse, douches, and tampons for the next 6 weeks. You can expect some vaginal spotting, cramps or light bleeding after surgery. This is normal. Each day should get better and better. If you are soaking a pad an hour or more frequently you need to call your doctor. You can ride in a car; Drive when it is not painful. If it is painful, don t do it. Stitches will dissolve with time and do not need to be removed. The band aids can be removed tomorrow. Leave the steri strips on. They may fall off and that is o.k. You may place band aids over the steri strips if there is drainage. You can shower with the incisions the day after surgery. Try to keep the steri strips as dry as possible. No tub baths, swimming, or soaking in water until after yourtwo week follow up appointment. Return to the office for postoperative check, and to go over any biopsy results at your scheduled appointment; usually two weeks following your surgery; and then at six weeks after surgery. Please call the office to schedule these appointments. CALL THE DOCTOR if you have severe pain, heavy bleeding, or a temperature of 100.5 or higher. Resume your regular home medication schedule as soon as you are eating a regular diet. You can either take the prescribed medications as directed for pain, or you can take over the counter pain medication, such as Motrin; as indicated on the package for pain or cramps. PLEASE CALL FOR ANY PROBLEMS. Follow Up Care 11/04/2022 14:01:47 With:Gal Das Address: [facility] [address] [address]- [place] (1) When:6 weeks With:Gal Das Address: [address], [address] [address] [place] (1) When:2 weeks Comments:Call for any problems. [facility]03-24-2023 Evaluation + Plan noteExtracted from: Title:ANES Post-operative Note - General Author: Vu Maria Jr., DO Date:12/05/22 Plan Transfer/Discharge: Transfer/Discharge Discharge when meets criteria ( From PACU to Ambulatory Surgery Unit, and To home ). Extracted from: Title:ANES Pre-operative Note - Adult Author:Chencho Chowdhury Jr., DOydaby Garcia Date:12/05/22 Plan [place] [employer] (ASA) physical status classification: Class II. Anesthetic Preoperative Plan: Anesthesia General. Future Appointments Appointment Date:01/02/2023 10:00:00 AM Scheduled Provider:Nakia Shah Location:[facility] Appointment Type:FM Open Future Scheduled Tests Laboratory* CBC w/ Auto Diff 07/21/22 Radiology* MA Mamm Screen w/CAD if perf and 3D [place] 04/21/22 [facility]03-24-2023 NoteHOSPITAL REGULATIONS: All Positive and Important Negative Findings Shall Be Recorded DATE ADMITTED: 12/05/2022 ADMITTING DIAGNOSIS:Menorrhagia, dysmenorrhea, probable adenomyosis. The patient is a 31 year old, white female who presented to my office. She had endometrial biopsieswhich revealed a mid-secretory endometrium. Her problem has been she has had prolonged cycles associated with progressive pain. Her ultrasound revealed potential for adenomyosis. She had been status post bilateral salpingectomy in the past for sterilization. She has a rather heavy smoking habit. She is also on medications for hypertension. She had been tried with an intrauterine device in the past and this was unsuccessful with continued bleeding throughout that time frame. We discussed endometrial ablations, concerns that this may not work secondary to her adenomyosis and pain. She desired definitive surgical management. It is also noted that she is somewhat cancer phobic with her mother'shistory of cervical cancer as well as her grandmother's history of cancer. After discussion, the patient elected to proceed with robotic assisted hysterectomy. She was informed of the risk of procedure including bleeding, injury to internal organs all of which she understood, accepted and appropriately signed consent forms. PAST MEDICAL HISTORY: Allergies: Coconut. Medicine: Protonix, Rexulti, Oxcarbazepine, gabapentin, Cymbalta, calcium, Topamax, Lisinopril, Trazodone, Naltrexone. Illnesses: Bipolar, borderline personality disorder, hypertension, probable adenomyosis. SURGERIES: section in 2007, 2013, 2016, tubal ligation in 2015, right foot construction [id number], gastric bypass in December of 2020. REVIEW OF SYSTEMS:Progressive heavy periods associated with pain. PHYSICAL EXAMINATION Well developed, well nourished white female, in no acute distress. VITAL SIGNS: Afebrile, pulse 80, respirations 18, blood pressure 112/70. HEAD, E.E.N.T.: Normocephalic, extraocular muscles intact. Pupils equal and responsive to accommodation. Nose and throat clear. NECK: Without mass, without thyromegaly. LUNGS: Clear to auscultation and percussion. HEART: Regular rate and rhythm. BREASTS: Nonpathologic. ABDOMEN: Soft, non-tender, positive bowel sounds. Negative for guarding, negative for rebound. PELVIC: Normal external genitalia, vault within normal limits. Cervix without lesion. Uterus with afew irregularities consistent with leiomyomata, 8-10 week size. Adnexa without mass, non-tender. IMPRESSION:Probable adenomyosis, leiomyomata, menorrhagia, dysmenorrhea progressive with pelvic pain, for definitive surgical management. Gal Das M.D. lr Dictated: 12/04/2022 [id number] Transcribed: 12/05/2022[facility] Center[facility]:Result Comment: Electronically Signed By: Thiago BHAKTA, Gal Ngo\.br\Date and Time Signed: 12/05/22 11:14 [id number] NoteHNO ID: [id number] Author: Eileen Manzano MD Service: ? 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 She lost all peripheral vision and has tunnel vision. It comes and goes, but occurs everyday. Usually in the morning to late afternoon and resolves after she lays down. She was seen at [facility]. She was told openning pressure was 23 cmH2O, . They removed 12cc CSF and headache got beter. Now it's coming back. Initially it's intermettent initially, and now it's quite consistent. Features of headache: constant. Usually in the back or tempos, pressure like feeling, 4/10, with photophobia, no positional change, sometimes nauseated. She gets some tingling in her fingers. She went to see a local neurologist but was told to just keep taking her Topamax. She has been on Topamax for years as a mood stabilizer. She saw optomotrist and was told there were mild pressure building behind her eyes. She has never seen an outbound telemarketing representative. CSF protein 24, Glu 55, Pro 28, She had MRI brain and was told that she has empty sella. She had gastric bypass surgery 2 years ago and lost 100 LB. She did not have weight gain lately. General Examination: BP 137/81 (BP Site: Right Arm, BP Position: Sitting, BP Cuff Size: Regular Adult) Pulse 67 Ht 170.2 cm (5' 7 ) Wt 85.7 kg (189 lb) LMP 10/23/2022 SpO2 100% BMI 29.60 kg/m? General: Awake, alert, interactive, no acute distress, good nutritional status, normal development, well-kept Skin: Rash: absent Pigmentation: absent HEENT: Head: normocephalic, no dysmorphism Eyes: normal Oropharynx: normal Neck: Carotid bruit: absent Movements: free Lymphadenopathy: absent Extremities: Deformity/contracture: absent Distal pulses: present Edema: absent Trophic change: absent Spine: Deformity: absent Heart: Regular S1 S2 normal Lungs: Clear to auscultation Abdomen: Soft, nontender Neurological Exam Mental Status Alert, fully oriented, attentive, with normal cognition, memory, speech and affect. Cranial Nerves Visual bee intact. Fundi with mild papilledema bilaterally. Pupils reactive. Extraocular movements conjugate and full. No ptosis. No nystagmus. Facial sensation intact. Face symmetric and strong. Palate and tongue normal. XI normal. Motor Examination and Coordination Motor examination with normal bulk, strength and tone. No drift. Normal rapid alternating movements and coordination. No adventitious movements or significant tremor. Reflexes Deep tendon reflexes graded by MRC Deep Tendon Reflexes Right Left Biceps 2+ 2+ Triceps 2+ 2+ Brachioradialis 2+ 2+ Patellar 2+ 2+ Achilles 2+ 2+ Plantar Downgoing Downgoing Sensation Sensation intact to light touch, pinprick, proprioception and vibration. Gait Arises easily. Casual gait, tandem, and Romberg are normal. Can rise on heels and toes. 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 Idiopathic intracranial hypertension -- Idiopathic intracranial hypertension: LP opening pressure 23 cm water. Mild papilledema in both eyes. I do not have the MRI results but it seems that there was no other lesions. I discussed with her about the cause of IIH and treatment options. I think switching Topamax to Diamox might provide better effect. I discussed with her about the side effect of Diamox and she agreed. She needs to follow with outbound telemarketing representative every 6 months. In some patients with intracranial hypertension, there might be a concurrent transverse sinus stenosis and transverse sinus stenting may resolve the symptoms. I will do MRV. --HTN --H depression --Headache: there are also tension headache features. But will hold off adding medications while we are trying diamox PLAN --MRV brain wo/w contrast --request MRI brain results --Reduce topamax to 50mg for 1-2 weeks, then 25mg for 1-2 weeks, then stop --start acetazolamide (diamox 500m (more content not included)...[id number] Instructions* Patient Instructions* Eileen Manzano MD - 11/20/2022 8:58 AM EST --We will do MRV to see whether you have venous malformation. --Please send me the result of your MRI brain --Reduce topamax to 50mg for 1-2 weeks, then 25mg for 1-2 weeks, then stop --start acetazolamide (diamox 500mg daily, and increase to twice a day in a week) --Consult ophthalmology --Follow up in 2-4 months [facility] History of Present illness Narrative* Eileen Manzano MD - 11/20/2022 7:57 AM EST Images from the original note were not included. [facility] for General Neurology New Patient Evaluation Consulting Provider: SELF Individuals who were included in, or assisted with the encounter were: Shazia Chou Eileen Manzano MD Chief Complaint/Issues: Shazia Chou is a 31 year old R handed female w PMH HTN, depression, recently diagnosed idiopathic intracranial hypertension, EtOH drinking, H gastric bypass surgery w 100lb weight loss, H of footsurgery due to congenital deformity, seen in the [facility] for General Neurology for: Idiopathic intracranial hypertension HPI: She started to have pressure in her head and vision issues in July 2022. She lost all peripheral vision and has tunnel vision. It comes and goes, but occurs everyday. Usually in the morning to late afternoon and resolves after she lays down. She was seen at [facility]. She was told openning pressure was 23 cmH2O, . They removed 12cc CSF and headache got beter. Now it's coming back. Initially i t's intermettent initially, and now it's quite consistent. Features of headache: constant. Usually in the back or tempos, pressure like feeling, 4/10, with photophobia, no positional change, sometimes nauseated. She gets some tingling in her fingers. She went to see a local neurologist but was told to just keep taking her Topamax. She has been on Topamax for years as a mood stabilizer. She saw optomotrist and was told there were mild pressure building behind her eyes. She has never seen an outbound telemarketing representative. CSF protein 24, Glu 55, Pro 28, She had MRI brain and was told that she has empty sella. She had gastric bypass surgery 2 years ago and lost 100 LB. She did not have weight gain lately. General Examination: BP 137/81 (BP Site: Right Arm, BP Position: Sitting, BP Cuff Size: Regular Adult) Pulse 67 Ht 170.2 cm (5' 7 ) Wt 85.7 kg (189 lb) LMP 10/23/2022 SpO2 100% BMI 29.60 kg/m General: Awake, alert, interactive, no acute distress, good nutritional status, normal development,well-kept Skin: Rash: absent Pigmentation: absent HEENT: Head: normocephalic, no dysmorphism Eyes: normal Oropharynx: normal Neck: Carotid bruit: absent Movements: free Lymphadenopathy: absent Extremities: Deformity/contracture: absent Distal pulses: present Edema: absent Trophic change: absent Spine: Deformity: absent Heart: Regular S1 S2 normal Lungs: Clear to auscultation Abdomen: Soft, nontender Neurological Exam Mental Status Alert, fully oriented, attentive, with normal cognition, memory, speech and affect. Cranial Nerves Visual bee intact. Fundi with mild papilledema bilaterally. Pupils reactive. Extraocular movements conjugate and full. No ptosis. No nystagmus. Facial sensation intact. Face symmetric and strong. Palate and tongue normal. XI normal. Motor Examination and Coordination Motor examination with normal bulk, strength and tone. No drift. Normal rapid alternating movementsand coordination. No adventitious movements or significant tremor. Reflexes Deep tendon reflexes graded by MRC Deep Tendon Reflexes Right Left Biceps 2+ 2+ Triceps 2+ 2+ Brachioradialis 2+ 2+ Patellar 2+ 2+ Achilles 2+ 2+ Plantar Downgoing Downgoing Sensation Sensation intact to light touch, pinprick, proprioception and vibration. Gait Arises easily. Casual gait, tandem, and Romberg are normal. Can rise on heels and toes. Assessment & Plan 11/20/2022 - General Neurology, Eileen Manzano MD ASSESSMENT Shazia Chou is a 31 year old R handed female w PMH HTN, depression, recently diagnosed idiopathic intracranial hypertension, EtOH drinking, H gastric bypass surgery w 100lb weight loss, H of footsurgery due to congenital deformity, seen in the [facility] for General Neurology for: 1. Idiopathic intracranial hypertension -- Idiopathic intracranial hypertension: LP opening pressure 23 cm water. Mild papilledema in both eyes. I do not have the MRI results but it seems that there was no other lesions. I discussed with her about the cause of IIH and treatment options. I think switching Topamax to Diamox might provide better effect. I discussed with her about the side effect of Diamox and she agreed. She needs to follow with outbound telemarketing representative every 6 months. In some patients with intracranial hypertension, there mightbe a concurrent transverse sinus stenosis and transverse sinus stenting may resolve the symptoms. Iwill do MRV. --HTN --H depression --Headache: there are also tension headache features. But will hold off adding medications while weare trying diamox PLAN --MRV brain wo/w contrast --request MRI brain results --Reduce topamax to 50mg for 1-2 weeks, then 25mg for 1-2 weeks, then stop --start acetazolamide (diamox 500mg daily, and increase to twice a day in a week) --Consult ophthalmology --Follow up in 2-4 months No diagnosis found. No follow-ups on file. Data Review Objective Current Outpatient Medications Medication Sig brexpiprazole (REXULTI) 4 mg tablet Take by mouth once daily. topiramate (TOPAMAX) 100 mg tablet Take 100 mg by mouth twice daily. DULoxetine (CYMBALTA) 60 mg capsule Take 60 mg by mouth once daily. pantoprazole DR (PROTONIX) 40 mg tablet Take 40 mg by mouth once daily. oigyjqoobyrn-bxy-bamf-FA-vit K (BARIATRIC MULTIVITAMINS) 45 mg iron- 800 mcg-120 mcg cap Take by mouth. calcium citrate-vitamin D3 500 mg-12.5 mcg /5 gram powd Take by mouth. No current facility-administered medications for this visit. ACTIVE PROBLEM LIST Poor Growth, Affecting Management of Mother, Antepartum Condition Or Complication No past medical history on file. PAST SURGICAL HISTORY Procedure Laterality Date NONE Social History Tobacco Use Smoking status: Every Day Packs/day: 1.00 Types: Cigarettes Smokeless tobacco: Never Substance Use Topics Alcohol use: Yes Comment: beer and wine once a month No family history on file. Review of Systems Constitutional: Negative. Skin: Negative. HENT: Negative. Musculoskeletal: Negative. Eyes: Positive for blurred vision. Respiratory: Negative. Cardiovascular: Negative. Gastrointestinal: Negative. Endocrine: Negative. Genitourinary: Negative. Hematologic/Lymphatic: Negative. Allergic/Immunologic: Negative. Psychiatric: Negative. Lab and Test Review: Results for orders placed or performed during the hospital encounter of 06/11/10 CBC + AUTO DIFF Result Value Ref Range WBC 10.91 3.70 - 11.00 k/uL RBC 4.16 3.90 - 5.20 m/uL Hemoglobin 12.8 11.5 - 15.5 g/dL Hematocrit 38.6 36.0 - 46.0 % MCV 92.8 80.0 - 100.0 fL MCH 30.8 26.0 - 34.0 pG MCHC 33.2 30.5 - 36.0 g/dL RDW-CV 12.9 11.5 - 15.0 % Platelet Count 311 150 - 400 k/uL MPV 11.3 9.0 - 12.7 fL Neut% 62 39.5 - 74.0 % Bands % 8 0 - 10 % Lymph% 20 15.9 - 47.3 % Hartley% 6 0.0 - 12.0 % Eosin% 3 0.0 - 6.6 % Baso% 1 0.0 - 1.2 % Abs Neut (ANC) 7.64 (H) 1.45 - 7.50 k/uL Abs Lymph 2.18 1.00 - 4.00 K/uL Abs Hartley 0.65 0.00 - 0.86 k/uL Abs Eosin 0.33 0.00 - 0.45 K/uL Abs Baso 0.11 (H) 0.00 - 0.10 k/uL Diff Comment Platelet estimate adequate Red Cell Morph Normal COMP METABOLIC PANEL Result Value Ref Range Sodium 138 132 - 148 mmol/L Potassium 3.9 3.5 - 5.0 mmol/L Chloride 102 98 - 110 mmol/L Protein, Total 7.8 6.0 - 8.4 g/dL Albumin 4.4 3.5 - 5.0 g/dL Calcium 10.0 8.5 - 10.5 mg/dL Bilirubin, Total 0.1 0.0 - 1.5 mg/dL Alkaline Phosphatase 98 40 - 150 U/L AST 17 7 - 40 U/L Glucose 80 65 - 100 mg/dL BUN 8 8 - 25 mg/dL Creatinine 0.60 (L) 0.70 - 1.40 mg/dL CO2 26 23 - 32 mmol/L ALT 20 0 - 45 U/L TSH BLD Result Value Ref Range TSH 1.860 0.400 - 5.500 uU/mL ALCOHOL/ETHANOL BLD Result Value Ref Range Ethanol <13 <13 mg/dL ACETAMINOPHEN/TYLENO Result Value Ref Range Acetaminophen <5 (L) 10 - 20 ug/mL SALICYLATE BLD Result Value Ref Range Salicylate <1 (L) 2 - 29 mg/dL TOX SCREEN ROUT UR Result Value Ref Range Phencyclidine Negative Negative Benzodiazepines Urine Negative Negative Cocaine Urine Negative Negative Amphetamines Negative Negative THC Negative Negative Opiates Negative Negative Barbiturates Urine Negative Negative Ur Tricyclic Antidepressants Negative Negative LIPID PANEL BASIC Result Value Ref Range Triglyceride 74 35 - 150 mg/dL Cholesterol, Total 139 100 - 199 mg/dL HDL Cholesterol 39 (L) >55 mg/dL LDL Calculated 85 <130 mg/dL Fasting Time Unknown hrs GLUCOSE FASTING BLD Result Value Ref Range Glucose, Fasting 86 65 - 100 mg/dL Outside Data/Labs: Subjective Patient-Entered Data: 11/20/22 - GENERAL NEUROLOGY SCORES PROMIS 10 02/06/2022 07/03/2022 11/17/2022 In general, would you say your health is: Good Very good Fair In general, would you say your quality of life is: Fair Good Very good In general, how would you rate your physical health? Good Very good Good In general, how would you rate your mental health, including your mood and your ability to think? Very good Good Very good In general, how would you rate your satisfaction with your social activities and relationships? Fair Fair Fair To what extent are you able to carry out your everyday physical activities such as walking, climbing stairs, carrying groceries, or moving a chair? A little Completely Moderately In general, please rate how well you carry out your usual social activities and roles. (This includes activities at home, at work and in your community, and responsibilities as a parent, child, spouse, employee, friend, etc.) Poor Fair Excellent How would you rate your pain on average? 4 0 - No Pain 3 How would you rate your fatigue on average? Moderate Moderate Mild How often have you been bothered by emotional problems such as feeling anxious, depressed or irritable? Sometimes Often Rarely PROMIS Adult Short Form-Global Health Score (Physical) 37.4 (Fair) 54.1 (Very Good) 44.9 (Good) PROMIS Adult Short Form-Global Health Score (Mental) 41.1 (Good) 38.8 (Fair) 48.3 (Very Good) No flowsheet data found. SLEEP APNEA SCORE 11/17/2022 Probability of moderate-severe sleep apnea (%) SAPS V2 9 (Sleep study not recommended) No flowsheet data found. No flowsheet data found. I spent a total of 60 minutes on the date of the service which included preparing to see the patient, [id number] patient care, completing clinical documentation, obtaining and/or reviewing separately obtained history, performing a medically appropriate examination, counseling and educating the pat ient/family/caregiver, ordering medications, tests, or procedures, independently interpreting results (not separately reported), communicating results to the patient/family/caregiver, and care coordination (not separately reported). Eileen Manzano MD [facility] Hospital Discharge instructions Patient Education 11/03/2022 13:28:28 BMI for Adults BMI for Adults Body mass index (BMI) is a number that is calculated from a person's weight and height. BMI may help to estimate how much of a person's weight is composed of fat. BMI can help identify those who may be at higher risk for certain medical problems. How is BMI used with adults? BMI is used as a screening tool to identify possible weight problems. It is used to check whether aperson is obese, overweight, healthy weight, or underweight. How is BMI calculated? BMI measures your weight and compares it to your height. This can be done either in [place] or metric measurements. Note that charts are available to help you find your BMI quickly and easily without having to do these calculations yourself. To calculate your BMI in [place] measurements, your health care provider will: 1.Measure your weight in pounds (lb). 2.Multiply the number of pounds by 703. For example, for a person who weighs 180 lb, multiply that number by 703, which equals [phone]. 3.Measure your height in inches (in). Then multiply that number by itself to get a measurement called inches squared. For example, for a person who is 70 in tall, the inches squared measurement is 70 in x 70 in, which equals 4900 inches squared. 4.Divide the total from Step 2 (number of lb x 703) by the total from Step 3 (inches squared): 126,540 4900 = 25.8. This is your BMI. To calculate your BMI in metric measurements, your health care provider will: 1.Measure your weight in kilograms (kg). 2.Measure your height in meters (m). Then multiply that number by itself to get a measurement called meters squared. For example, for a person who is 1.75 m tall, the meters squared measurement is 1.75 m x 1.75 m, which is equal to 3.1 meters squared. 3.Divide the number of kilograms (your weight) by the meters squared number. In this example: 70 3.1 = 22.6. This is your BMI. How is BMI interpreted? To interpret your results, your health care provider will use BMI charts to identify whether you are underweight, normal weight, overweight, or obese. The following guidelines will be used: Underweight: BMI less than 18.5. Normal weight: BMI between 18.5 and 24.9. Overweight: BMI between 25 and 29.9. Obese: BMI of 30 and above. Please note: Weight includes both fat and muscle, so someone with a muscular build, such as an athlete, may havea BMI that is higher than 24.9. In cases like these, BMI is not an accurate measure of body fat. To determine if excess body fat is the cause of a BMI of 25 or higher, further assessments may needto be done by a health care provider. BMI is usually interpreted in the same way for men and women. Why is BMI a useful tool? BMI is useful in two ways: Identifying a weight problem that may be related to a medical condition, or that may increase the risk for medical problems. Promoting lifestyle and diet changes in order to reach a healthy weight. Summary Body mass index (BMI) is a number that is calculated from a person's weight and height. BMI may help to estimate how much of a person's weight is composed of fat. BMI can help identify those who may be at higher risk for certain medical problems. BMI can be measured using [place] measurements or metric measurements. To interpret your results, your health care provider will use BMI charts to identify whether you are underweight, normal weight, overweight, or obese. This information is not intended to replace advice given to you by your health care provider. Make sure you discuss any questions you have with your health care provider. Document Released: 05/12/2005 Document Revised: 08/13/2018 Document Reviewed: 07/14/2018 [employer] Patient Education 2020 Anywhere to Go. 11/03/2022 13:28:26 Tobacco Use Disorder Tobacco Use Disorder Tobacco use disorder (TUD) occurs when a person craves, seeks, and uses tobacco, regardless of the consequences. This disorder can cause problems with mental and physical health. It can affect your ability to have healthy relationships, and it can keep you from meeting your responsibilities at work, home, or school. Tobacco may be: Smoked as a cigarette or cigar. Inhaled using e-cigarettes. Smoked in a pipe or hookah. Chewed as smokeless tobacco. Inhaled into the nostrils as snuff. Tobacco products contain a dangerous chemical called nicotine, which is very addictive. Nicotine triggers hormones that make the body feel stimulated and works on areas of the brain that make you feel good. These effects can make it hard for people to quit nicotine. Tobacco contains many other unsafe chemicals that can damage almost every organ in the body. Smoking tobacco also puts others in danger due to fire risk and possible health problems caused by breathing in secondhand smoke. What are the signs or symptoms? Symptoms of TUD may include: Being unable to slow down or stop your tobacco use. Spending an abnormal amount of time getting or using tobacco. Craving tobacco. Cravings may last for up to 6 months after quitting. Tobacco use that: ?Interferes with your work, school, or home life. ?Interferes with your personal and social relationships. ?Makes you give up activities that you once enjoyed or found important. Using tobacco even though you know that it is: ?Dangerous or bad for your health or someone else's health. ?Causing problems in your life. Needing more and more of the substance to get the same effect (developing tolerance). Experiencing unpleasant symptoms if you do not use the substance (withdrawal). Withdrawal symptoms may include: ?Depressed, anxious, or irritable mood. ?Difficulty concentrating. ?Increased appetite. ?Restlessness or trouble sleeping. Using the substance to avoid withdrawal. How is this diagnosed? This condition may be diagnosed based on: Your current and past tobacco use. Your health care provider may ask questions about how your tobacco use affects your life. A physical exam. You may be diagnosed with TUD if you have at least two symptoms within a 12- month period. How is this treated? This condition is treated by stopping tobacco use. Many people are unable to quit on their own and need help. Treatment may include: Nicotine replacement therapy (NRT). NRT provides nicotine without the other harmful chemicals in tobacco. NRT gradually lowers the dosage of nicotine in the body and reduces withdrawal symptoms. NRT is available as: ?Lnwl-nwx-yhuczlp gums, lozenges, and skin patches. ?Prescription mouth inhalers and nasal sprays. Medicine that acts on the brain to reduce cravings and withdrawal symptoms. A type of talk therapy that examines your triggers for tobacco use, how to avoid them, and how to cope with cravings (behavioral therapy). Hypnosis. This may help with withdrawal symptoms. Joining a support group for others coping with TUD. The best treatment for TUD is usually a combination of medicine, talk therapy, and support groups. Recovery can be a long process. Many people start using tobacco again after stopping (relapse). If you relapse, it does not mean that treatment will not work. Follow these instructions at home: Lifestyle Do not use any products that contain nicotine or tobacco, such as cigarettes and e-cigarettes. Avoid things that trigger tobacco use as much as you can. Triggers include people and situations that usually cause you to use tobacco. Avoid drinks that contain caffeine, including coffee. These may worsen some withdrawal symptoms. Find ways to manage stress. Wanting to smoke may cause stress, and stress can make you want to smoke. Relaxation techniques such as deep breathing, meditation, and yoga may help. Attend support groups as needed. These groups are an important part of long-term recovery for many people. General instructions Take nwnc-olc-rkhlzbc and prescription medicines only as told by your health care provider. Check with your health care provider before taking any new prescription or lefo-fis-mbtwtjn medicines. Decide on a friend, family member, or smoking quit-line (such as 8-990-UMEC-NOW in the [place] that you can call or text when you feel the urge to smoke or when you need help coping with cravings. Keep all follow-up visits as told by your health care provider and therapist. This is important. Contact a health care provider if: You are not able to take your medicines as prescribed. Your symptoms get worse, even with treatment. Summary Tobacco use disorder (TUD) occurs when a person craves, seeks, and uses tobacco regardless of the consequences. This condition may be diagnosed based on your current and past tobacco use and a physical exam. Many people are unable to quit on their own and need help. Recovery can be a long process. The most effective treatment for TUD is usually a combination of medicine, talk therapy, and support groups. This information is not intended to replace advice given to you by your health care provider. Make sure you discuss any questions you have with your health care provider. Document Released: 05/06/2005 Document Revised: 08/18/2018 Document Reviewed: 08/18/2018 [employer] Patient Education 2020 Anywhere to Go. 11/03/2022 13:28:23 Alcohol Abuse and Dependence Information, Adult Alcohol Abuse and Dependence Information, Adult Alcohol is a widely available drug. People drink alcohol in different amounts. People who drink alcohol very often and in large amounts often have problems during and after drinking. They may developwhat is called an alcohol use disorder. There are two main types of alcohol use disorders: Alcohol abuse. This is when you use alcohol too much or too often. You may use alcohol to make yourself feel happy or to reduce stress. You may have a hard time setting a limit on the amount you drink. Alcohol dependence. This is when you use alcohol consistently for a period of time, and your body changes as a result. This can make it hard to stop drinking because you may start to feel sick or feel different when you do not use alcohol. These symptoms are known as withdrawal. How can alcohol abuse and dependence affect me? Alcohol abuse and dependence can have a negative effect on your life. Drinking too much can lead toaddiction. You may feel like you need alcohol to function normally. You may drink alcohol before work in the morning, during the day, or as soon as you get home from work in the evening. These actions can result in: Poor work performance. Job loss. Financial problems. Car crashes or criminal charges from driving after drinking alcohol. Problems in your relationships with friends and family. Losing the trust and respect of coworkers, friends, and family. Drinking heavily over a long period of time can permanently damage your body and brain, and can cause lifelong health issues, such as: Damage to your liver or pancreas. Heart problems, high blood pressure, or stroke. Certain cancers. Decreased ability to fight infections. Brain or nerve damage. Depression. Early (premature) . If you are careless or you crave alcohol, it is easy to drink more than your body can handle (overdose). Alcohol overdose is a serious situation that requires hospitalization. It may lead to permanent injuries or . What can increase my risk? Having a family history of alcohol abuse. Having depression or other mental health conditions. Beginning to drink at an early age. Binge drinking often. Experiencing trauma, stress, and an unstable home life during childhood. Spending time with people who drink often. What actions can I take to prevent or manage alcohol abuse and dependence? Do not drink alcohol if: ?Your health care provider tells you not to drink. ?You are , may be , or are planning to become . If you drink alcohol: ?Limit how much you use to: ?0 1 drink a day for women. ?0 2 drinks a day for men. ?Be aware of how much alcohol is in your drink. In the [place] one drink equals one 12 oz bottle of beer (355 mL), one 5 oz glass of wine (148 mL), or one 1 oz glass of hard liquor (44 mL). Stop drinking if you have been drinking too much. This can be very hard to do if you are used to abusing alcohol. If you begin to have withdrawal symptoms, talk with your health care provider or a person that you trust. These symptoms may include anxiety, shaky hands, headache, nausea, sweating, ornot being able to sleep. Choose to drink nonalcoholic beverages in social gatherings and places where there may be alcohol. Activity Spend more time on activities that you enjoy that do not involve alcohol, like hobbies or exercise. Find healthy ways to cope with stress, such as exercise, meditation, or spending time with people you care about. General information Talk to your family, coworkers, and friends about supporting you in your efforts to stop drinking. If they drink, ask them not to drink around you. Spend more time with people who do not drink alcohol. If you think that you have an alcohol dependency problem: ?Tell friends or family about your concerns. ?Talk with your health care provider or another health professional about where to get help. ?Work with a therapist and a chemical dependency counselor. ?Consider joining a support group for people who struggle with alcohol abuse and dependence. Where to find support Your health care provider. [facility]: www.smartrecovery.org Therapy and support groups Local treatment centers or chemical dependency counselors. Local AA groups in your community: www.aa.org Where to find more information Centers for Disease Control and Prevention: www.cdc.gov National [place] on Alcohol Abuse and Alcoholism: www.niaaa.nih.gov Alcoholics Anonymous (AA): www.aa.org Contact a health care provider if: You drank more or for longer than you intended on more than one occasion. You tried to stop drinking or to cut back on how much you drink, but you were not able to. You often drink to the point of vomiting or passing out. You want to drink so badly that you cannot think about anything else. You have problems in your life due to drinking, but you continue to drink. You keep drinking even though you feel anxious, depressed, or have experienced memory loss. You have stopped doing the things you used to enjoy in order to drink. You have to drink more than you used to in order to get the effect you want. You experience anxiety, sweating, nausea, shakiness, and trouble sleeping when you try to stop drinking. Get help right away if: You have thoughts about hurting yourself or others. You have serious withdrawal symptoms, including: ?Confusion. ?Racing heart. ?High blood pressure. ?Fever. If you ever feel like you may hurt yourself or others, or have thoughts about taking your own life,get help right away. You can go to your nearest emergency department or call: Your local emergency services (911 in the [place] A suicide crisis helpline, such as the National Suicide Prevention Lifeline at . Thisis open 24 hours a day. Summary Alcohol abuse and dependence can have a negative effect on your life. Drinking too much or too often can lead to addiction. If you drink alcohol, limit how much you use. If you are having trouble keeping your drinking under control, find ways to change your behavior. Hobbies, calming activities, exercise, or support groups can help. If you feel you need help with changing your drinking habits, talk with your health care provider, a good friend, or a therapist, or go to an AA group. This information is not intended to replace advice given to you by your health care provider. Make sure you discuss any questions you have with your health care provider. Document Released: 08/25/2017 Document Revised: 12/20/2019 Document Reviewed: 11/08/2019 [employer] Patient Education 2019 Anywhere to Go. 11/03/2022 13:28:19 BMI for Adults BMI for Adults Body mass index (BMI) is a number that is calculated from a person's weight and height. BMI may help to estimate how much of a person's weight is composed of fat. BMI can help identify those who may be at higher risk for certain medical problems. How is BMI used with adults? BMI is used as a screening tool to identify possible weight problems. It is used to check whether aperson is obese, overweight, healthy weight, or underweight. How is BMI calculated? BMI measures your weight and compares it to your height. This can be done either in [place] or metric measurements. Note that charts are available to help you find your BMI quickly and easily without having to do these calculations yourself. To calculate your BMI in [place] measurements, your health care provider will: 1.Measure your weight in pounds (lb). 2.Multiply the number of pounds by 703. For example, for a person who weighs 180 lb, multiply that number by 703, which equals 126,540. 3.Measure your height in inches (in). Then multiply that number by itself to get a measurement called inches squared. For example, for a person who is 70 in tall, the inches squared measurement is 70 in x 70 in, which equals 4900 inches squared. 4.Divide the total from Step 2 (number of lb x 703) by the total from Step 3 (inches squared): 126,540 4900 = 25.8. This is your BMI. To calculate your BMI in metric measurements, your health care provider will: 1.Measure your weight in kilograms (kg). 2.Measure your height in meters (m). Then multiply that number by itself to get a measurement called meters squared. For example, for a person who is 1.75 m tall, the meters squared measurement is 1.75 m x 1.75 m, which is equal to 3.1 meters squared. 3.Divide the number of kilograms (your weight) by the meters squared number. In this example: 70 3.1 = 22.6. This is your BMI. How is BMI interpreted? To interpret your results, your health care provider will use BMI charts to identify whether you are underweight, normal weight, overweight, or obese. The following guidelines will be used: Underweight: BMI less than 18.5. Normal weight: BMI between 18.5 and 24.9. Overweight: BMI between 25 and 29.9. Obese: BMI of 30 and above. Please note: Weight includes both fat and muscle, so someone with a muscular build, such as an athlete, may havea BMI that is higher than 24.9. In cases like these, BMI is not an accurate measure of body fat. To determine if excess body fat is the cause of a BMI of 25 or higher, further assessments may needto be done by a health care provider. BMI is usually interpreted in the same way for men and women. Why is BMI a useful tool? BMI is useful in two ways: Identifying a weight problem that may be related to a medical condition, or that may increase the risk for medical problems. Promoting lifestyle and diet changes in order to reach a healthy weight. Summary Body mass index (BMI) is a number that is calculated from a person's weight and height. BMI may help to estimate how much of a person's weight is composed of fat. BMI can help identify those who may be at higher risk for certain medical problems. BMI can be measured using [place] measurements or metric measurements. To interpret your results, your health care provider will use BMI charts to identify whether you are underweight, normal weight, overweight, or obese. This information is not intended to replace advice given to you by your health care provider. Make sure you discuss any questions you have with your health care provider. Document Released: 05/12/2005 Document Revised: 08/13/2018 Document Reviewed: 07/14/2018 [employer] Patient Education 2020 Anywhere to Go. 10/27/2022 11:56:27 Alcohol Abuse and Dependence Information, Adult Alcohol Abuse and Dependence Information, Adult Alcohol is a widely available drug. People drink alcohol in different amounts. People who drink alcohol very often and in large amounts often have problems during and after drinking. They may developwhat is called an alcohol use disorder. There are two main types of alcohol use disorders: Alcohol abuse. This is when you use alcohol too much or too often. You may use alcohol to make yourself feel happy or to reduce stress. You may have a hard time setting a limit on the amount you drink. Alcohol dependence. This is when you use alcohol consistently for a period of time, and your body changes as a result. This can make it hard to stop drinking because you may start to feel sick or feel different when you do not use alcohol. These symptoms are known as withdrawal. How can alcohol abuse and dependence affect me? Alcohol abuse and dependence can have a negative effect on your life. Drinking too much can lead toaddiction. You may feel like you need alcohol to function normally. You may drink alcohol before work in the morning, during the day, or as soon as you get home from work in the evening. These actions can result in: Poor work performance. Job loss. Financial problems. Car crashes or criminal charges from driving after drinking alcohol. Problems in your relationships with friends and family. Losing the trust and respect of coworkers, friends, and family. Drinking heavily over a long period of time can permanently damage your body and brain, and can cause lifelong health issues, such as: Damage to your liver or pancreas. Heart problems, high blood pressure, or stroke. Certain cancers. Decreased ability to fight infections. Brain or nerve damage. Depression. Early (premature) . If you are careless or you crave alcohol, it is easy to drink more than your body can handle (overdose). Alcohol overdose is a serious situation that requires hospitalization. It may lead to permanent injuries or . What can increase my risk? Having a family history of alcohol abuse. Having depression or other mental health conditions. Beginning to drink at an early age. Binge drinking often. Experiencing trauma, stress, and an unstable home life during childhood. Spending time with people who drink often. What actions can I take to prevent or manage alcohol abuse and dependence? Do not drink alcohol if: ?Your health care provider tells you not to drink. ?You are , may be , or are planning to become . If you drink alcohol: ?Limit how much you use to: ?0 1 drink a day for women. ?0 2 drinks a day for men. ?Be aware of how much alcohol is in your drink. In the [place] one drink equals one 12 oz bottle of beer (355 mL), one 5 oz glass of wine (148 mL), or one 1 oz glass of hard liquor (44 mL). Stop drinking if you have been drinking too much. This can be very hard to do if you are used to abusing alcohol. If you begin to have withdrawal symptoms, talk with your health care provider or a person that you trust. These symptoms may include anxiety, shaky hands, headache, nausea, sweating, ornot being able to sleep. Choose to drink nonalcoholic beverages in social gatherings and places where there may be alcohol. Activity Spend more time on activities that you enjoy that do not involve alcohol, like hobbies or exercise. Find healthy ways to cope with stress, such as exercise, meditation, or spending time with people you care about. General information Talk to your family, coworkers, and friends about supporting you in your efforts to stop drinking. If they drink, ask them not to drink around you. Spend more time with people who do not drink alcohol. If you think that you have an alcohol dependency problem: ?Tell friends or family about your concerns. ?Talk with your health care provider or another health professional about where to get help. ?Work with a therapist and a chemical dependency counselor. ?Consider joining a support group for people who struggle with alcohol abuse and dependence. Where to find support Your health care provider. [facility]: www.smartrecovery.org Therapy and support groups Local treatment centers or chemical dependency counselors. Local AA groups in your community: www.aa.org Where to find more information Centers for Disease Control and Prevention: www.cdc.gov National [place] on Alcohol Abuse and Alcoholism: www.niaaa.nih.gov Alcoholics Anonymous (AA): www.aa.org Contact a health care provider if: You drank more or for longer than you intended on more than one occasion. You tried to stop drinking or to cut back on how much you drink, but you were not able to. You often drink to the point of vomiting or passing out. You want to drink so badly that you cannot think about anything else. You have problems in your life due to drinking, but you continue to drink. You keep drinking even though you feel anxious, depressed, or have experienced memory loss. You have stopped doing the things you used to enjoy in order to drink. You have to drink more than you used to in order to get the effect you want. You experience anxiety, sweating, nausea, shakiness, and trouble sleeping when you try to stop drinking. Get help right away if: You have thoughts about hurting yourself or others. You have serious withdrawal symptoms, including: ?Confusion. ?Racing heart. ?High blood pressure. ?Fever. If you ever feel like you may hurt yourself or others, or have thoughts about taking your own life,get help right away. You can go to your nearest emergency department or call: Your local emergency services (911 in the [place] A suicide crisis helpline, such as the National Suicide Prevention Lifeline at . Thisis open 24 hours a day. Summary Alcohol abuse and dependence can have a negative effect on your life. Drinking too much or too often can lead to addiction. If you drink alcohol, limit how much you use. If you are having trouble keeping your drinking under control, find ways to change your behavior. Hobbies, calming activities, exercise, or support groups can help. If you feel you need help with changing your drinking habits, talk with your health care provider, a good friend, or a therapist, or go to an AA group. This information is not intended to replace advice given to you by your health care provider. Make sure you discuss any questions you have with your health care provider. Document Released: 08/25/2017 Document Revised: 12/20/2019 Document Reviewed: 11/08/2019 [employer] Patient Education 2020 Anywhere to Go. Follow Up Care 10/15/2022 11:28:56 With:Nakia hSah Address: [address] [place] [address] [place] [address]- When:Within 2 Month(s) Comments:f/u smoking cessation and BP [facility] 01-11-2023 Hospital Discharge instructions Patient Education 09/24/2022 07:23:49 Tobacco Use Disorder Tobacco Use Disorder Tobacco use disorder (TUD) occurs when a person craves, seeks, and uses tobacco, regardless of the consequences. This disorder can cause problems with mental and physical health. It can affect your ability to have healthy relationships, and it can keep you from meeting your responsibilities at work, home, or school. Tobacco may be: Smoked as a cigarette or cigar. Inhaled using e-cigarettes. Smoked in a pipe or hookah. Chewed as smokeless tobacco. Inhaled into the nostrils as snuff. Tobacco products contain a dangerous chemical called nicotine, which is very addictive. Nicotine triggers hormones that make the body feel stimulated and works on areas of the brain that make you feel good. These effects can make it hard for people to quit nicotine. Tobacco contains many other unsafe chemicals that can damage almost every organ in the body. Smoking tobacco also puts others in danger due to fire risk and possible health problems caused by breathing in secondhand smoke. What are the signs or symptoms? Symptoms of TUD may include: Being unable to slow down or stop your tobacco use. Spending an abnormal amount of time getting or using tobacco. Craving tobacco. Cravings may last for up to 6 months after quitting. Tobacco use that: ?Interferes with your work, school, or home life. ?Interferes with your personal and social relationships. ?Makes you give up activities that you once enjoyed or found important. Using tobacco even though you know that it is: ?Dangerous or bad for your health or someone else's health. ?Causing problems in your life. Needing more and more of the substance to get the same effect (developing tolerance). Experiencing unpleasant symptoms if you do not use the substance (withdrawal). Withdrawal symptoms may include: ?Depressed, anxious, or irritable mood. ?Difficulty concentrating. ?Increased appetite. ?Restlessness or trouble sleeping. Using the substance to avoid withdrawal. How is this diagnosed? This condition may be diagnosed based on: Your current and past tobacco use. Your health care provider may ask questions about how your tobacco use affects your life. A physical exam. You may be diagnosed with TUD if you have at least two symptoms within a 12- month period. How is this treated? This condition is treated by stopping tobacco use. Many people are unable to quit on their own and need help. Treatment may include: Nicotine replacement therapy (NRT). NRT provides nicotine without the other harmful chemicals in tobacco. NRT gradually lowers the dosage of nicotine in the body and reduces withdrawal symptoms. NRT is available as: ?Sdhi-yuk-uaatyzn gums, lozenges, and skin patches. ?Prescription mouth inhalers and nasal sprays. Medicine that acts on the brain to reduce cravings and withdrawal symptoms. A type of talk therapy that examines your triggers for tobacco use, how to avoid them, and how to cope with cravings (behavioral therapy). Hypnosis. This may help with withdrawal symptoms. Joining a support group for others coping with TUD. The best treatment for TUD is usually a combination of medicine, talk therapy, and support groups. Recovery can be a long process. Many people start using tobacco again after stopping (relapse). If you relapse, it does not mean that treatment will not work. Follow these instructions at home: Lifestyle Do not use any products that contain nicotine or tobacco, such as cigarettes and e-cigarettes. Avoid things that trigger tobacco use as much as you can. Triggers include people and situations that usually cause you to use tobacco. Avoid drinks that contain caffeine, including coffee. These may worsen some withdrawal symptoms. Find ways to manage stress. Wanting to smoke may cause stress, and stress can make you want to smoke. Relaxation techniques such as deep breathing, meditation, and yoga may help. Attend support groups as needed. These groups are an important part of long-term recovery for many people. General instructions Take nicj-fud-jvjuhia and prescription medicines only as told by your health care provider. Check with your health care provider before taking any new prescription or nkyy-wdm-axaqgfr medicines. Decide on a friend, family member, or smoking quit-line (such as 4-732-ETDR-NOW in the [place] that you can call or text when you feel the urge to smoke or when you need help coping with cravings. Keep all follow-up visits as told by your health care provider and therapist. This is important. Contact a health care provider if: You are not able to take your medicines as prescribed. Your symptoms get worse, even with treatment. Summary Tobacco use disorder (TUD) occurs when a person craves, seeks, and uses tobacco regardless of the consequences. This condition may be diagnosed based on your current and past tobacco use and a physical exam. Many people are unable to quit on their own and need help. Recovery can be a long process. The most effective treatment for TUD is usually a combination of medicine, talk therapy, and support groups. This information is not intended to replace advice given to you by your health care provider. Make sure you discuss any questions you have with your health care provider. Document Released: 05/06/2005 Document Revised: 08/18/2018 Document Reviewed: 08/18/2018 [employer] Patient Education 2020 Anywhere to Go. 09/24/2022 07:23:47 BMI for Adults BMI for Adults Body mass index (BMI) is a number that is calculated from a person's weight and height. BMI may help to estimate how much of a person's weight is composed of fat. BMI can help identify those who may be at higher risk for certain medical problems. How is BMI used with adults? BMI is used as a screening tool to identify possible weight problems. It is used to check whether aperson is obese, overweight, healthy weight, or underweight. How is BMI calculated? BMI measures your weight and compares it to your height. This can be done either in [place] or metric measurements. Note that charts are available to help you find your BMI quickly and easily without having to do these calculations yourself. To calculate your BMI in [place] measurements, your health care provider will: 1.Measure your weight in pounds (lb). 2.Multiply the number of pounds by 703. For example, for a person who weighs 180 lb, multiply that number by 703, which equals 126,540. 3.Measure your height in inches (in). Then multiply that number by itself to get a measurement called inches squared. For example, for a person who is 70 in tall, the inches squared measurement is 70 in x 70 in, which equals 4900 inches squared. 4.Divide the total from Step 2 (number of lb x 703) by the total from Step 3 (inches squared): 126,540 4900 = 25.8. This is your BMI. To calculate your BMI in metric measurements, your health care provider will: 1.Measure your weight in kilograms (kg). 2.Measure your height in meters (m). Then multiply that number by itself to get a measurement called meters squared. For example, for a person who is 1.75 m tall, the meters squared measurement is 1.75 m x 1.75 m, which is equal to 3.1 meters squared. 3.Divide the number of kilograms (your weight) by the meters squared number. In this example: 70 3.1 = 22.6. This is your BMI. How is BMI interpreted? To interpret your results, your health care provider will use BMI charts to identify whether you are underweight, normal weight, overweight, or obese. The following guidelines will be used: Underweight: BMI less than 18.5. Normal weight: BMI between 18.5 and 24.9. Overweight: BMI between 25 and 29.9. Obese: BMI of 30 and above. Please note: Weight includes both fat and muscle, so someone with a muscular build, such as an athlete, may havea BMI that is higher than 24.9. In cases like these, BMI is not an accurate measure of body fat. To determine if excess body fat is the cause of a BMI of 25 or higher, further assessments may needto be done by a health care provider. BMI is usually interpreted in the same way for men and women. Why is BMI a useful tool? BMI is useful in two ways: Identifying a weight problem that may be related to a medical condition, or that may increase the risk for medical problems. Promoting lifestyle and diet changes in order to reach a healthy weight. Summary Body mass index (BMI) is a number that is calculated from a person's weight and height. BMI may help to estimate how much of a person's weight is composed of fat. BMI can help identify those who may be at higher risk for certain medical problems. BMI can be measured using [place] measurements or metric measurements. To interpret your results, your health care provider will use BMI charts to identify whether you are underweight, normal weight, overweight, or obese. This information is not intended to replace advice given to you by your health care provider. Make sure you discuss any questions you have with your health care provider. Document Released: 05/12/2005 Document Revised: 08/13/2018 Document Reviewed: 07/14/2018 [employer] Patient Education 2020 Anywhere to Go. 09/24/2022 07:23:45 Alcohol Use Disorder Alcohol Use Disorder Alcohol use disorder is when your drinking disrupts your daily life. When you have this condition, you drink too much alcohol and you cannot control your drinking. Alcohol use disorder can cause serious problems with your physical health. It can affect your brain, heart, liver, pancreas, immune system, stomach, and intestines. Alcohol use disorder can increase your risk for certain cancers and cause problems with your mental health, such as depression, anxiety, psychosis, delirium, and dementia. People with this disorder risk hurting themselves and others. What are the causes? This condition is caused by drinking too much alcohol over time. It is not caused by drinking too much alcohol only one or two times. Some people with this condition drink alcohol to cope with or escape from negative life events. Others drink to relieve pain or symptoms of mental illness. What increases the risk? You are more likely to develop this condition if: You have a family history of alcohol use disorder. Your culture encourages drinking to the point of intoxication, or makes alcohol easy to get. You had a mood or conduct disorder in childhood. You have been a victim of abuse. You are an adolescent and: ?You have poor grades or difficulties in school. ?Your caregivers do not talk to you about saying no to alcohol, or supervise your activities. ?You are impulsive or you have trouble with self-control. What are the signs or symptoms? Symptoms of this condition include: Drinking more than you want to. Drinking for longer than you want to. Trying several times to drink less or to control your drinking. Spending a lot of time getting alcohol, drinking, or recovering from drinking. Craving alcohol. Having problems at work, at school, or at home due to drinking. Having problems in relationships due to drinking. Drinking when it is dangerous to drink, such as before driving a car. Continuing to drink even though you know you might have a physical or mental problem related to drinking. Needing more and more alcohol to get the same effect you want from the alcohol (building up tolerance). Having symptoms of withdrawal when you stop drinking. Symptoms of withdrawal include: ?Fatigue. ?Nightmares. ?Trouble sleeping. ?Depression. ?Anxiety. ?Fever. ?Seizures. ?Severe confusion. ?Feeling or seeing things that are not there (hallucinations). ?Tremors. ?Rapid heart rate. ?Rapid breathing. ?High blood pressure. Drinking to avoid symptoms of withdrawal. How is this diagnosed? This condition is diagnosed with an assessment. Your health care provider may start the assessment by asking three or four questions about your drinking. Your health care provider may perform a physical exam or do lab tests to see if you have physical problems resulting from alcohol use. She or he may refer you to a mental health professional for evaluation. How is this treated? Some people with alcohol use disorder are able to reduce their alcohol use to low-risk levels. Others need to completely quit drinking alcohol. When necessary, mental health professionals with specialized training in substance use treatment can help. Your health care provider can help you decide how severe your alcohol use disorder is and what type of treatment you need. The following forms of treatment are available: Detoxification. Detoxification involves quitting drinking and using prescription medicines within the first week to help lessen withdrawal symptoms. This treatment is important for people who have had withdrawal symptoms before and for heavy drinkers who are likely to have withdrawal symptoms. Alcohol withdrawal can be dangerous, and in severe cases, it can cause . Detoxification may be provided in a home, community, or primary care setting, or in a hospital or substance use treatment facility. Counseling. This treatment is also called talk therapy. It is provided by substance use treatment counselors. A counselor can address the reasons you use alcohol and suggest ways to keep you from drinking again or to prevent problem drinking. The goals of talk therapy are to: ?Find healthy activities and ways for you to cope with stress. ?Identify and avoid the things that trigger your alcohol use. ?Help you learn how to handle cravings. Medicines. Medicines can help treat alcohol use disorder by: ?Decreasing alcohol cravings. ?Decreasing the positive feeling you have when you drink alcohol. ?Causing an uncomfortable physical reaction when you drink alcohol (aversion therapy). Support groups. Support groups are led by people who have quit drinking. They provide emotional support, advice, and guidance. These forms of treatment are often combined. Some people with this condition benefit from a combination of treatments provided by specialized substance use treatment centers. Follow these instructions at home: Take rhsg-uta-lgnvpkc and prescription medicines only as told by your health care provider. Check with your health care provider before starting any new medicines. Ask friends and family members not to offer you alcohol. Avoid situations where alcohol is served, including gatherings where others are drinking alcohol. Create a plan for what to do when you are tempted to use alcohol. Find hobbies or activities that you enjoy that do not include alcohol. Keep all follow-up visits as told by your health care provider. This is important. How is this prevented? If you drink, limit alcohol intake to no more than 1 drink a day for non women and 2 drinksa day for men. One drink equals 12 oz of beer, 5 oz of wine, or 1 oz of hard liquor. If you have a mental health condition, get treatment and support. Do not give alcohol to adolescents. If you are an adolescent: ?Do not drink alcohol. ?Do not be afraid to say no if someone offers you alcohol. Speak up about why you do not want to drink. You can be a positive role model for your friends and set a good example for those around you by not drinking alcohol. ?If your friends drink, spend time with others who do not drink alcohol. Make new friends who do not use alcohol. ?Find healthy ways to manage stress and emotions, such as meditation or deep breathing, exercise, spending time in nature, listening to music, or talking with a trusted friend or family member. Contact a health care provider if: You are not able to take your medicines as told. Your symptoms get worse. You return to drinking alcohol (relapse) and your symptoms get worse. Get help right away if: You have thoughts about hurting yourself or others. If you ever feel like you may hurt yourself or others, or have thoughts about taking your own life,get help right away. You can go to your nearest emergency department or call: Your local emergency services (911 in the [place] A suicide crisis helpline, such as the National Suicide Prevention Lifeline at . Thisis open 24 hours a day. Summary Alcohol use disorder is when your drinking disrupts your daily life. When you have this condition, you drink too much alcohol and you cannot control your drinking. Treatment may include detoxification, counseling, medicine, and support groups. Ask friends and family members not to offer you alcohol. Avoid situations where alcohol is served. Get help right away if you have thoughts about hurting yourself or others. This information is not intended to replace advice given to you by your health care provider. Make sure you discuss any questions you have with your health care provider. Document Released: 10/08/2005 Document Revised: 08/13/2018 Document Reviewed: 05/28/2017 [employer] Patient Education 2020 Anywhere to Go. 09/24/2022 07:23:42 Borderline Personality Disorder, Adult Borderline Personality Disorder, Adult Borderline personality disorder (BPD) is a mental health disorder. People with this condition: Have unstable moods and relationships. Have trouble controlling emotions. Often engage in impulsive or reckless behavior. Often fear being abandoned by friends or family. People with BPD often have other mental health issues, such as depression, an anxiety disorder, a substance abuse disorder, or an eating disorder. They may develop suicidal thoughts or behaviors. What are the causes? The exact cause of this condition is not known. Possible causes may include: Genetic factors. These are traits that are passed down from one generation to the next. Many peoplewith BPD have a family history of the disorder. Physical factors. The part of the brain that controls emotion may be different in people who have this condition. Social factors. Traumatic experiences involving other people may play a role in the development of BPD. These may include child abuse or neglect. What increases the risk? This condition may be more likely to develop in people who: Have a parent or close relative with the condition. Experienced physical or sexual abuse as a child. Experienced neglect or were from their parents as a child. Have unstable family relationships or an unstable home. What are the signs or symptoms? Symptoms of this condition usually start during the teen years or in early adulthood. Symptoms include: Extreme overreactions to the possibility of being abandoned by family or friends. This may include explosive responses to seemingly minor events, such as a change of plans. Volatile relationships with friends and relatives. This may include extreme swings from feelings oflove to intense anger. Distorted or unstable self-image. This may affect mood, relationships, and future goals or plans. Reckless or impulsive behaviors, such as shopping sprees, risky sexual behavior, substance abuse, or overeating. Self-harm, such as cutting. Expressing thoughts of suicide. Extreme mood swings that can last for hours or days. Constant boredom. Problems controlling anger. This can result in shame or guilt. Paranoid thoughts. Losing touch with reality, often in order to help deal with unbearable situations (dissociation). How is this diagnosed? This condition is diagnosed based on the person's symptoms. Information about the person's symptomsis gathered from family, friends, and medical and legal professionals. A health care provider who specializes in physical and psychological causes of mental conditions (psychiatrist) will do a psychiatric evaluation. The person will be diagnosed with BPD if she or he has at least five common symptoms of the condition. How is this treated? This condition is usually treated by mental health professionals, such as psychologists, psychiatrists, and clinical social workers. More than one type of treatment may be needed. Treatment may include therapy such as: Psychotherapy. This may also be called talk therapy or counseling. Cognitive behavioral therapy (CBT). This helps the person to recognize and change unhealthy feelings, thoughts, and behaviors. It helps him or her find new, more positive thoughts and actions to replace the old ones. Dialectical behavioral therapy (DBT). Through this type of treatment, a person learns to understandhis or her feelings and to regulate them. This may be one-on-one treatment or part of group therapy. Schema-focused therapy (SFT). This form of therapy helps a person with a distorted self-image to see him or herself differently. This may be one-on-one treatment or part of group therapy. Family therapy. This treatment includes family members. Medicine may be used to help control emotions and behavior and to treat anxiety and depression. Theperson may need to stay in the hospital for protection if he or she is behaving in a dangerous way or expressing thoughts of suicide. Follow these instructions at home: The person with BPD should do these things: Take xpqp-sni-blrmtpx and prescription medicines only as told by his or her health care provider. Maintain a daily routine. The routine should include set times to eat and sleep. Do regular physical activity to reduce stress. He or she should ask a health care provider to recommend activities. Communicate with close friends and relatives about what triggers his or her symptoms. Find comforting people and environments. Keep all follow-up visits as told by her or his health care provider. This is important. Where to find more information National [place] on Mental Illness: www.marivel.org [place] National [place] of Mental Health: www.nimh.nih.gov Contact a health care provider if: The person's symptoms do not improve or they get worse. The person has new symptoms. The person uses drugs. The person's alcohol use increases. The person has trouble sleeping. The person eats too much or not enough. Get help right away if: The person harms himself or herself, or expresses serious thoughts about self-harming. The person expresses serious thoughts about hurting others. The person sees or hears things that are not there (has hallucinations). The person disconnects from reality. The person is unconscious. If it ever seems like the person may hurt himself/herself or others, or may have thoughts about taking his or her own life, get help right away. You can go to your nearest emergency department or call: Your local emergency services (911 in the [place] A suicide crisis helpline, such as the National Suicide Prevention Lifeline at . Thisis open 24 hours a day. Summary Borderline personality disorder (BPD) is a mental health disorder. People with this condition may have unstable moods and relationships, have trouble controlling emotions, and may engage in impulsiveor reckless behavior. A health care provider who specializes in physical and psychological causes of mental conditions (psychiatrist) will do a psychiatric evaluation. The person will be diagnosed with BPD if she or he has at least five common symptoms of the condition. This condition is usually treated by mental health professionals, such as psychologists, psychiatrists, and clinical social workers. More than one type of treatment may be needed. Contact a health care provider if the person's symptoms do not improve or they get worse. This information is not intended to replace advice given to you by your health care provider. Make sure you discuss any questions you have with your health care provider. Document Released: 12/16/2011 Document Revised: 08/13/2018 Document Reviewed: 11/05/2017 [employer] Patient Education 2020 Anywhere to Go. 09/24/2022 07:23:39 Managing Bipolar Disorder Managing Bipolar Disorder When someone is diagnosed with bipolar disorder, the person may be relieved to now know why he or she has felt or behaved a certain way. The person may also feel overwhelmed about the treatment ahead, how to get needed support, and how to deal with the condition each day. With care and support, a person with bipolar disorder can learn to manage his or her symptoms and live with the condition. How to manage lifestyle changes Managing stress Stress is your body's reaction to life changes and events, both good and bad. Stress can play a major role in bipolar disorder, so it is important to learn how to manage stress. Some techniques to help you manage stress include: Meditation, muscle relaxation, and breathing exercises. Exercise. Even a short daily walk can help to lower stress levels. Getting enough good-quality sleep. Too little sleep can cause maryam to start (can trigger maryam). Making a schedule to manage your time. Knowing your daily schedule can help to keep you from feeling overwhelmed by tasks and deadlines. Spending time on hobbies you enjoy. Medicines Your health care provider may suggest certain medicines if he or she feels that they will help improve your condition. Avoid using caffeine, alcohol, and other substances that may prevent your medicines from working properly. It is also important to: Talk with your pharmacist or health care provider about all the medicines that you take, their possible side effects, and which medicines are safe to take together. Make it your goal to take part in all treatment decisions (shared decision- making). Ask about possible side effects of medicines that your health care provider recommends, and tell him or her how youfeel about having those side effects. It is best if shared decision-making with your health care provider is part of your total treatment plan. If you are taking medicines as part of your treatment, do not stop taking medicines before you ask your health care provider if it is safe to stop. You may need to have the medicine slowly decreased (tapered) over time to lower the risk of harmful side effects. Relationships Spend time with people whom you trust and with whom you feel a sense of understanding and calm. Tryto find friends or family members who make you feel safe and can help you control feelings of maryam. Consider going to couples counseling, family education classes, or family therapy to: Educate your loved ones about your condition and offer suggestions about how they can support you. Help resolve conflicts. Help develop communication skills in your relationships. How to recognize changes in your condition Everyone responds differently to treatment for bipolar disorder. Some signs that your condition is improving include: Leveling of your mood. You may have less anger and excitement about daily activities, and your low moods may not be as bad. Your symptoms being less intense. Feeling calm more often. Thinking clearly. Not experiencing consequences for extreme behavior. Feeling like your life is settling down. Your behavior seeming more normal to you and to other people. Some signs that your condition may be getting worse include: Sleep problems. Moods cycling between deep lows and unusually high (excess) energy. Extreme emotions. More anger at loved ones. Staying away from others, or isolating yourself. A feeling of power or superiority. Completing a lot of tasks in a very short amount of time. Unusual thoughts and behaviors. Suicidal thoughts. Follow these instructions at home: Medicines Take qgah-wbe-zfuqcug and prescription medicines only as told by your health care provider or pharmacist. Ask your pharmacist what kfuo-mas-sjgbsdx cold medicines you should avoid. Some medicines can make symptoms worse. General instructions Ask for support from trusted family members or friends to make sure you stay on track with your treatment. Keep a journal to write down your daily moods, medicines, sleep habits, and life events. This may help you have more success with your treatment. Make and follow a routine for daily meal times. Eat healthy foods, such as whole grains, vegetables, and fresh fruit. Try to go to sleep and wake up around the same time every day. Keep all follow-up visits as told by your health care provider. This is important. Where to find support Talking to others Try making a list of the people you may want to tell about your condition, such as the people you trust most. Plan what you are willing and not willing to talk about. Think about your needs ahead of time, and how your friends and family members can support you. Let your loved ones know when they can share advice and when you would just like them to listen. Give your loved ones information about bipolar disorder, and encourage them to learn about the condition. Finances Not all insurance plans cover mental health care, so it is important to check with your insurance carrier. If paying for co-pays or counseling services is a problem, search for a local or community health mental health care center. Public mental health care services may be offered there at a low cost or no cost when you are not able to see a private health care provider. If you are taking medicine for depression, you may be able to get the generic form, which may be less expensive than brand-name medicine. Some makers of prescription medicines also offer help to patients who cannot afford the medicines they need. Questions to ask your health care provider: If you are taking medicines: ?How long do I need to take medicine? ?Are there any long-term side effects of my medicine? ?Are there any alternatives to taking medicine? How would I benefit from therapy? How often should I follow up with a health care provider? Contact a health care provider if: Your symptoms get worse or they do not get better with treatment. Get help right away if: You have thoughts about harming yourself or others. If you ever feel like you may hurt yourself or others, or have thoughts about taking your own life,get help right away. You can go to your nearest emergency department or call: Your local emergency services (911 in the [place] A suicide crisis helpline, such as the National Suicide Prevention Lifeline at . Thisis open 24-hours a day. Summary Learning ways to manage stress can help to calm you and may also help your treatment work better. There is a wide range of medicines that can help to treat bipolar disorder. Having healthy relationships can help to make your moods more stable. Contact a health care provider if your symptoms get worse or they do not get better with treatment. This information is not intended to replace advice given to you by your health care provider. Make sure you discuss any questions you have with your health care provider. Document Released: 12/31/2017 Document Revised: 12/23/2019 Document Reviewed: 12/31/2017 [employer] Patient Education 2019 Anywhere to Go. Follow Up Care 09/16/2022 13:23:11 With:Aimee Walker CNP Address: [address] [place] [phone] When:3 months [facility] 12-09-2022 Hospital Discharge instructions Patient Education 08/22/2022 11:12:56 Tension Headache, Adult, Blvi-wy-Qfnb Tension Headache, Adult A tension headache is pain, pressure, or aching in your head. Tension headaches can last from 30 minutes to several days. Follow these instructions at home: Managing pain Take tnbd-xbh-roelbef and prescription medicines only as told by your doctor. When you have a headache, lie down in a dark, quiet room. If told, put ice on your head and neck: ?Put ice in a plastic bag. ?Place a towel between your skin and the bag. ?Leave the ice on for 20 minutes, 2 3 times a day. If told, put heat on the back of your neck. Do this as often as your doctor tells you to. Use the kind of heat that your doctor recommends, such as a moist heat pack or a heating pad. ?Place a towel between your skin and the heat. ?Leave the heat on for 20 30 minutes. ?Remove the heat if your skin turns bright red. Eating and drinking Eat meals on a regular schedule. Watch how much alcohol you drink: ?If you are a woman and are not , do not drink more than 1 drink a day. ?If you are a man, do not drink more than 2 drinks a day. Drink enough fluid to keep your pee (urine) pale yellow. Do not use a lot of caffeine, or stop using caffeine. Lifestyle Get enough sleep. Get 7 9 hours of sleep each night. Or get the amount of sleep that your doctor tells you to. At bedtime, remove all electronic devices from your room. Examples of electronic devices are computers, phones, and tablets. Find ways to lessen your stress. Some things that can lessen stress are: ?Exercise. ?Deep breathing. ?Yoga. ?Music. ?Positive thoughts. Sit up straight. Do not tighten (tense) your muscles. Do not use any products that have nicotine or tobacco in them, such as cigarettes and e-cigarettes.If you need help quitting, ask your doctor. General instructions Keep all follow-up visits as told by your doctor. This is important. Avoid things that can bring on headaches. Keep a journal to find out if certain things bring on headaches. For example, write down: ?What you eat and drink. ?How much sleep you get. ?Any change to your diet or medicines. Contact a doctor if: Your headache does not get better. Your headache comes back. You have a headache and sounds, light, or smells bother you. You feel sick to your stomach (nauseous) or you throw up (vomit). Your stomach hurts. Get help right away if: You suddenly get a very bad headache along with any of these: ?A stiff neck. ?Feeling sick to your stomach. ?Throwing up. ?Feeling weak. ?Trouble seeing. ?Feeling short of breath. ?A rash. ?Feeling unusually sleepy. ?Trouble speaking. ?Pain in your eye or ear. ?Trouble walking or balancing. ?Feeling like you will pass out (faint). ?Passing out. Summary A tension headache is pain, pressure, or aching in your head. Tension headaches can last from 30 minutes to several days. Lifestyle changes and medicines may help relieve pain. This information is not intended to replace advice given to you by your health care provider. Make sure you discuss any questions you have with your health care provider. Document Released: 11/25/2010 Document Revised: 08/13/2018 Document Reviewed: 12/11/2017 [employer] Patient Education 2020 [employer] Follow Up Care 08/14/2022 12:38:29 With:Rita SNOWDEN, IGGY Roberson, PED Address: [address] [place] [address], [facility] [place] [place] [address] When:1 month only if needed Comments:40 mins [facility] 12-05-2022 Hospital Discharge instructions Patient Education 08/18/2022 19:56:48 Foot Pain Foot Pain Many things can cause foot pain. Some common causes are: An injury. A sprain. Arthritis. Blisters. Bunions. Follow these instructions at home: Managing pain, stiffness, and swelling If directed, put ice on the painful area: Put ice in a plastic bag. Place a towel between your skin and the bag. Leave the ice on for 20 minutes, 2 3 times a day. Activity Do not stand or walk for long periods. Return to your normal activities as told by your health care provider. Ask your health care provider what activities are safe for you. Do stretches to relieve foot pain and stiffness as told by your health care provider. Do not lift anything that is heavier than 10 lb (4.5 kg), or the limit that you are told, until your health care provider says that it is safe. Lifting a lot of weight can put added pressure on your feet. Lifestyle Wear comfortable, supportive shoes that fit you well. Do not wear high heels. Keep your feet clean and dry. General instructions Take kqcr-tbv-dzldnut and prescription medicines only as told by your health care provider. Rub your foot gently. Pay attention to any changes in your symptoms. Keep all follow-up visits as told by your health care provider. This is important. Contact a health care provider if: Your pain does not get better after a few days of self-care. Your pain gets worse. You cannot stand on your foot. Get help right away if: Your foot is numb or tingling. Your foot or toes are swollen. Your foot or toes turn white or blue. You have warmth and redness along your foot. Summary Common causes of foot pain are injury, sprain, arthritis, blisters or bunions. Ice, medicines, and comfortable shoes may help foot pain. Contact your health care provider if your pain does not get better after a few days of self-care. This information is not intended to replace advice given to you by your health care provider. Make sure you discuss any questions you have with your health care provider. Document Released: 09/26/2016 Document Revised: 06/16/2019 Document Reviewed: 06/16/2019 [employer] Patient Education 2020 Anywhere to Go. 08/18/2022 19:56:48 Foot Sprain Foot Sprain A foot sprain is an injury to one of the strong bands of tissue (ligaments) that connect and support the bones in your feet. The ligament can be stretched too much and tear. A tear can be either partial or complete. The severity of the sprain depends on how much of the ligament was damaged or torn. What are the causes? This condition is usually caused by suddenly twisting or pivoting your foot. What increases the risk? This injury is more likely to occur in people who: Play a sport, such as basketball or football. Exercise or play a sport without warming up. Start a new workout or sport. Suddenly increase how long or hard they exercise or play a sport. Have previously injured their foot or ankle. What are the signs or symptoms? Symptoms of this condition start soon after an injury and include: Pain, especially in the arch of the foot. Bruising. Swelling. Inability to walk or use the foot to support body weight. How is this diagnosed? This condition is diagnosed with a medical history and physical exam. You may also have imaging tests, such as: X-rays to make sure there are no broken bones (fractures). An MRI to see if the ligament is torn. How is this treated? Treatment for this condition depends on the severity of the sprain. Mild sprains can be treated with: ?Rest, ice, compression, and elevation (RICE). ?Keeping your foot in a fixed position (immobilization) for a period of time. This is done if your ligament is overstretched or partially torn. Your health care provider will apply a bandage, splint,or walking boot to keep your foot from moving until it heals. ?Using crutches or a scooter for a few weeks to avoid putting weight on your foot while it is healing. Major sprains can be treated with: ?Surgery. This is done if your ligament is fully torn and a procedure is needed to reconnect it to the bone. ?A cast or splint. This will be needed after surgery. A cast or splint will need to stay on your foot while it heals. In both types of sprains, you may need to exercise or have physical therapy to strengthen your foot. Follow these instructions at home: If you have a bandage, splint, or boot: Wear the bandage, splint, or boot as told by your health care provider. Remove only as told by yourhealth care provider. Loosen the bandage, splint, or boot if your toes tingle, become numb, or turn cold and blue. Keep the bandage, splint, or boot clean and dry. If you have a cast: Do not stick anything inside the cast to scratch your skin. Doing that increases your risk for infection. Check the skin around the cast every day. Tell your health care provider about any concerns. You may put lotion on dry skin around the edges of the cast. Do not put lotion on the skin underneath the cast. Keep the cast clean and dry. Bathing Do not take baths, swim, or use a hot tub until your health care provider approves. Ask your healthcare provider if you may take showers. You may only be allowed to take sponge baths. If the bandage, splint, boot, or cast is not waterproof: ?Do not let it get wet. ?Cover it with a watertight covering when you take a shower. Managing pain, stiffness, and swelling If directed, put ice on the injured area: ?If you have a removable splint, boot, or immobilizer, remove it as told by your health care provider. ?Put ice in a plastic bag. ?Place a towel between your skin and the bag. ?Leave the ice on for 20 minutes, 2 3 times per day. Move your toes often to avoid stiffness and to lessen swelling. Raise (elevate) the injured area above the level of your heart while you are sitting or lying down. Driving Do not drive or operate heavy machinery while taking pain medicine. Ask your health care provider when it is safe to drive if you have a bandage, splint, or walking boot on your foot. Activity Do not use the injured foot to support your body weight until your health care provider says that you can. Use crutches or other supportive devices as directed by your health care provider. Ask your health care provider what activities are safe for you. Do any exercise or physical therapyas directed. Gradually increase how much and how far you walk until your health care provider says it is safe toreturn to full activity. General instructions If you have a cast, do not put pressure on any part of it until it is fully hardened. This may takeseveral hours. Take tnie-sxw-dwxhpvr and prescription medicines only as told by your health care provider. When you can walk without pain, wear supportive shoes that have stiff soles. Do not wear flip-flops, and do not walk barefoot. Keep all follow-up visits as told by your health care provider. This is important. Contact a health care provider if: Your pain is not controlled with medicine. Your bruising or swelling gets worse or does not get better with treatment. Your splint, boot, or cast is damaged. Get help right away if: You develop severe numbness or tingling in your foot. Your foot turns blue, white, or jimenez, and it feels cold. Summary A foot sprain is an injury to one of the strong bands of tissue (ligaments) that connect and support the bones in your feet. Your health care provider may recommend a splint or boot for your foot to support it while it heals. In some cases, surgery may be needed. Physical therapy can help keep your other muscles strong until your foot gets better. This information is not intended to replace advice given to you by your health care provider. Make sure you discuss any questions you have with your health care provider. Document Released: 02/20/2003 Document Revised: 09/04/2018 Document Reviewed: 09/04/2018 [employer] Patient Education 2020 Anywhere to Go. 08/18/2022 19:56:48 Elastic Bandage and RICE Therapy Elastic Bandage and RICE Therapy Elastic bandages come in different shapes and sizes. They generally provide support to your injury and reduce swelling while you are healing, but they can perform different functions. Your health care provider will help you to decide what is best for your protection, recovery, or rehabilitation after an injury. The routine care of many injuries includes rest, ice, compression, and elevation (RICE therapy). RICE therapy is often recommended for injuries to soft tissues, such as muscle strain, sprains, bruises, and overuse injuries. It can also be used for some bone injuries. Using RICE therapy can help to relieve pain and lessen swelling. What are some general tips for using an elastic bandage? Use the bandage as directed by the maker of the bandage that you are using. Do not wrap the bandage too tightly. This may block (cut off) the circulation in the arm or leg in the area below the bandage. ?If part of your body beyond the bandage becomes blue, numb, cold, swollen, or more painful, your bandage is probably too tight. If this occurs, remove your bandage and reapply it more loosely. Remove and reapply an elastic bandage every 3 4 hours or as told by your health care provider. See your health care provider if the bandage seems to be making your problems worse rather than better. How to care for your injury with RICE therapy Rest Rest your injury. This may help with the healing process. Rest usually involves limiting your normal activities and not using the injured part of your body. Generally, you can return to your normal activities when your health care provider says it is okay and you can do them without much discomfort. If you rest the injury too much, it may not heal as well. Some injuries heal better with early movement instead of resting for too long. Talk with your health care provider about how you should limityour activities and whether you should start qoplm-it-oknauh exercises for your injury. Ice Ice your injury to lessen swelling and pain. Do not apply ice directly to your skin. Put ice in a plastic bag. Place a towel between your skin and the bag. Leave the ice on for 20 minutes, 2 3 times a day. Use ice on as many days as told by your health care provider. Compression Put pressure (compression) on your injured area to control swelling, give support, and help with discomfort. Compression may be done with an elastic bandage. Elevation Raise (elevate) your injured area to lessen swelling and pain. If possible, elevate your injured area at or above the level of your heart or the center of your chest. Contact a health care provider if: Your pain and swelling continue. Your symptoms are getting worse rather than improving. Having these problems may mean that you need further evaluation or imaging tests, such as X-rays ja MRI. Sometimes, X-rays may not show a small broken bone (fracture) until days after the injury happened. Make a follow-up appointment with your health care provider. Ask your health care provider,or the department that is doing the imaging test, when your results will be ready. Get help right away if: You have sudden severe pain at or below the area of your injury. You have redness or increased swelling around your injury. You have tingling or numbness at or below the area of your injury and it does not improve after youremove the elastic bandage. Summary Elastic bandages provide support to your injury and reduce swelling while you are healing. Your health care provider will help you decide which type of elastic bandage is best for your injury. Do not wrap the bandage too tightly. This may block (cut off) the circulation in the arm or leg in the area below the bandage. Putting pressure (compression) on your injured area with an elastic bandage is part of RICE therapy. RICE therapy includes rest, ice, compression, and elevation. This treatment is recommended for theroutine care of many injuries. This information is not intended to replace advice given to you by your health care provider. Make sure you discuss any questions you have with your health care provider. Document Released: 02/20/2003 Document Revised: 05/21/2018 Document Reviewed: 05/21/2018 [employer] Patient Education [employer]. Follow Up Care 08/18/2022 17:21:15 With:Hilton Gillis Address: [address] [place], [place] [id number] Business (1) When:08/21/2022 19:10:21 With:Aimee Walker Address:Unknown When:Within 3 Day(s) [facility]11-29-2022 Procedure [facility]11-29-2022 Progress note Author Lizzeth Malave [facility] August 12, 2022 10:46am Note Date/Time August 12, 2022 10:45am [facility] [address] [place] [id number] Hospitalist Progress Note Signed Patient: Shazia Chou MR#: [id number] : 1990 Acct:[id number] Age/Sex: 31 / F Adm Date: 2 Loc: 4N Room: [address] [place] [address] Type: ADM INOo Attending Dr: Lizzeth Malave MD Copies to: ~ Date of Service: 08/12/2022 Subjective Subjective Narrative: Shazia Chou is a 31yo F. She was transferred here last night from [facility] with worsening headache and blurry vision with concerns for intracranial hypertension. She has had the symptoms since Thursday and stated her home blood pressure has been as high as 160/113 which is abnormal for her. She reports tinnitus. Last night she felt very nauseous and thought that she would go to sleep and not wake up so she called the squad. She was transferred here for neurology. She is on Trileptal but discontinued it 4 days ago because she thought it may be causing her symptoms. Last night she endorsesfeeling her heart flutter and being drenched in sweat which is unusual for her an EKG was obtained that shows normal sinus rhythm. MRI and MRV have been obtained but are not read yet. Exam Physical Exam Vital Signs: Temp Pulse Resp BP Pulse Ox O2 Del Method 97.8 F 73 20 104/68 99 Room Air 08/12/22 04:40 08/12/22 04:40 08/12/22 04:40 08/12/22 04:40 08/12/22 04:40 08/12/22 04:40 Narrative: GEN: Awake, alert, oriented x 3. Lungs: Clear to auscultation bilaterally, no wheezing, no crackles. Heart: Regular rate and rhythm, no murmurs, rubs, or gallops Abdomen: Soft, normal bowel sounds, no rigidity, guarding, or acute peritoneal signs. Extremities: Strength 5/5 bilaterally and sensation intact bilaterally. No swelling or cords in the calves bilaterally, no edema in the ankles bilaterally. Both legs appear equal in terms of their perfusion Objective Lab Results CBC & Chem 7: 08/12/22 05:12 08/12/22 05:12 Meds Allergies and Active Meds Allergies coconut Allergy (Verified 07/18/20 14:12) Swelling of Lip/Tongue/Throat Active Meds: Active Medications Generic Name Dose Route Start Last Admin Trade Name Freq PRN Reason Stop Dose Admin Acetaminophen 650 mg 08/11/22 21:43 08/11/22 22:45 Acetaminophen 325 Mg Tablet PO 08/11/23 21:42 650 mg Q6HR PRN Administration Pain Scale 1 - 3 or fever Brexpiprazole 4 mg 08/11/22 22:00 08/11/22 22:45 Brexpiprazole 2 Mg Tablet PO 08/11/23 21:59 4 mg QHS CAITIE Administration Duloxetine HCl 60 mg 08/11/22 22:00 08/11/22 22:45 Duloxetine 60 Mg Capsule. PO 08/11/23 21:59 60 mg QHS CAITIE Administration Hydralazine HCl 10 mg 08/11/22 21:43 Hydralazine 20 Mg/Ml Vial IV-PUSH 08/11/23 21:42 Q4H PRN Hypertension Influenza Virus Vaccine Quadrival 0.5 ml 08/13/22 09:00 Flu Vac Quad (36month+)Pf 0.5 Ml Syringe [id number] IM 08/13/22 09:01 .ONCE ONE Omeprazole 20 mg 08/12/22 09:00 08/12/22 09:21 Omeprazole 20 Mg Capsule. PO 08/12/23 08:59 20 mg DAILY CAITIE Administration Ondansetron HCl 4 mg 08/11/22 21:43 Ondansetron 4 Mg/2 Ml Vial IV-PUSH 08/11/23 21:42 Q8H PRN Nausea And Vomiting Trazodone HCl 100 mg 08/11/22 22:00 08/11/22 22:45 Trazodone 100 Mg Tablet PO 08/11/23 21:59 100 mg QHS CAITIE Administration A&P - Hospitalist Assessment/Plan (1) Blurry vision: (2) Headache: (3) Borderline personality disorder: (4) Bipolar 1 disorder: (5) MDD (major depressive disorder): (6) Palpitation: Plan: Blurry vision, headache, tinnitus, reported increased blood pressure -Evaluate for idiopathic intracranial hypertension -Brain MRI and MRV obtained -Lumbar puncture? -Neurology consult Borderline personality disorder, bipolar 1, MDD -Restart Trileptal Palpitation -EKG showed normal sinus rhythm -Continue to monitor on telemetry Plan 1. Headache, seems to be better Associated with nausea and tunnel vision CT scan of the head without acute findings MRI/MRV/LP pending No signs of infectious process 2. Bipolar disorder, continue with psychiatric medications, patient stopped taking Trileptal 4 days ago due to concerns causing headaches Continue other psychiatric medications 3. Anemia, with elevated MCV, check B12/folic acid 4. Subjective palpitation, telemetry no arrhythmias, EKG normal sinus with ventricular rate 66, with T wave inversions in V3 V2 Documented By: Lizzeth Malave MD 08/12/22 0944 Signed By: <Electronically signed by Lizzeth Malave MD> 08/12/22 1046 [facility] Work Phone: 1([phone]) 516-107011-29-2022 Consult note Author Kenrick Lee [facility] August 12, 2022 4:21pm Note Date/Time August 12, 2022 8:13am [facility] [address] [place] [address] Neurology Consult Note Signed Patient: Shazia Chou MR#: [id number] : 1990 Acct:[id number] Age/Sex: 31 / F Adm Date: 2 Loc: 4N Room: 2R4639-4 Type: ADM INOo Attending Dr: Lizzeth Malave MD Copies to: DO Jennie Wise ANP-C Ruta Semaskiene, MD~ HPI Consult Date: 08/12/22 Sponge Hooker: ASTON Bro with Dr Lee Reason for consult: Headache, blurred vision Consult Narrative HPI: Patient is a 31-year-old female with medical history of bipolar, personality disorder, depression, and tobacco use in addition to 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 She has been seen in neurological consultation with request of the hospital service for headache and blurred vision. Patient initially presented to [facility] and was transferred to [facility] for evaluation. She was seen in the [facility] on 08/08/2022 with similar symptoms and discharged home. She states she developed a headache on Thursday,almost a week ago. She is not normally a headache type person. Headache is in the back of her head and behind her eyes. She states her eyes hurt. Headache is described as pressure. She does have light and sound sensitivity as well as nausea but no emesis. She had gastric bypass surgery a few years ago and lost approximately 100 pounds. She states her vision was initially blurry but now itfeels foggy . This does not resolve if she covers 1 eye or the other. She denies diplopia or loss of vision. Headaches are constant but vary in intensity. They seem to be worse in the afternoon. Yesterday she did not feel well and she felt like she was going to pass out. She took her blood pressure is 169/113 at home. She started shaking all over and this is when she called EMS. At [facility] she had a CT scan of the head that showed nonexpandedpartially empty sella which is unchanged from prior imaging. Mild leukocytosis with WBC of 15.3. Otherwise lab evaluation is unremarkable. She was on Topamaxand this is being weaned off and she was started on Trileptal by her psychiatrist. Topamax was being used as a mood stabilizer. She stopped the Trileptal when the headache started thinking it was contributing to the headacheand hypertension. On arrival to this facility her blood pressure was 115/71. CBC and CMP unremarkable. She still has a headache but states it is improved. Rates it 4 out of 10. Vision is still foggy. No other focal neurological symptoms Review of Systems Constitutional Constitutional: Denies chills and Denies fever(s) Eyes Eyes: Reports blurry vision, Denies diplopia, Denies loss of vision, Reports photophobia and Reports tunnel vision ENT Ears, Nose, Mouth, and Throat: Denies nasal congestion and Denies nasal discharge Cardiovascular Cardiovascular: Denies chest pain and Denies palpitations Respiratory Respiratory: Denies cough and Denies dyspnea Gastrointestinal Gastrointestinal: Denies change in bowel habits, Reports nausea and Denies vomiting Genitourinary Genitourinary: Denies dysuria Musculoskeletal Musculoskeletal: Denies back pain and Denies neck pain Integumentary/Breasts Skin/Breast: Denies pruritus and Denies rash Neurologic Neurologic: Reports as per HPI Psychiatric Psychiatric: Denies confusion PMFSH Vaccinated for COVID-19?: Yes Medical History (Updated 08/12/22 @ 09:50 by Cynthia Matos) Alcoholism in recovery Bipolar 1 disorder Borderline personality disorder Current every day smoker Depression Plantar fasciitis, bilateral Surgical History (Updated 08/11/22 @ 21:07 by Angelita Chamorro RN) H/O decompression of ulnar nerve H/O gastric bypass Previous section Family History Mother Pancreatic cancer Father Keisha Gehrig disease Social History Smoking Status: Current every day smoker Tobacco Type: cigarettes Substance Use Type: Alcohol Substance Abuse Comment: recovery alcohol user Meds Medications and Allergies Allergies coconut Allergy (Verified 07/18/20 14:12) Swelling of Lip/Tongue/Throat Home Medications brexpiprazole 3 mg tablet (Rexulti) 4 mg PO QHS 01/08/19 [History Confirmed 08/11/22] duloxetine 60 mg capsule,delayed release (Cymbalta) 60 mg PO QHS 01/08/19 [History Confirmed 08/11/22] lorazepam 1 mg tablet 1 mg PO BID PRN Anxiety 07/18/20 [History Confirmed 07/19/20] pantoprazole 40 mg tablet,delayed release 40 mg PO DAILY 07/18/20 [History Confirmed 08/11/22] ergocalciferol (vitamin D2) 1,250 mcg (50,000 unit) capsule 50,000 unit PO QWEEK07/19/20 [History Confirmed 07/19/20] quetiapine 100 mg tablet 100 mg PO QHS 07/19/20 [History Confirmed 07/19/20] duloxetine 30 mg capsule,delayed release 30 mg PO QHS 30 days #30 caps 07/20/20 [Rx] calcium carbonate 500 mg calcium (1,250 mg) tablet 500 mg PO BID 08/11/22 [History Confirmed 08/11/22] multivitamin 1 tab PO DAILY 08/11/22 [History Confirmed 08/11/22] trazodone 100 mg tablet 100 mg PO QHS 08/11/22 [History Confirmed 08/11/22] oxcarbazepine 150 mg tablet 75 mg PO BID 08/12/22 [History Confirmed 08/12/22] topiramate 100 mg tablet (Topamax) 50 mg PO BID 30 days #0 tabs 08/12/22 [Rx Confirmed 07/19/20] Exam Physical Exam Vital Signs: Temp Pulse Resp BP Pulse Ox O2 Del Method 97.8 F 73 20 104/68 99 Room Air 08/12/22 04:40 08/12/22 04:40 08/12/22 04:40 08/12/22 04:40 08/12/22 04:40 08/12/22 04:40 Narrative: GENERAL EXAM: * Constitutional - Patient appears well nourished and well groomed * Patient is alert and oriented x3. * Apical is regular rate and rhythm. No murmur was appreciated. No edema noted. Pulses are normal * Lung sounds are clear to auscultation * Abdomen is soft with normal bowel sounds * Neck is supple without carotid bruit. No occipital tenderness noted * Ophthalmoscopic exam deferred. No injection or drainage noted. NEURO EXAM: * Attention span/concentration normal * Speech is clear and fluent * Cranial nerve II. Vision is intact. JOHN * Cranial nerve III, IV and . Extraocular muscles are intact. No nystagmus is appreciated * Cranial nerve V and VII. No facial asymmetry is appreciated. Temperature and pinprick is equal bilaterally * Cranial nerve VIII hearing is intact * Cranial nerve IX and X speech is clear fluent. Palate elevates symmetrically * Cranial nerve XI head turn side to side full range of motion. Shoulder shrug is equal bilaterally * Cranial nerve XII tongue is midline full range of motion MOTOR EXAM: * Strength is 5/5 throughout. No pronator drift was appreciated * Muscle tone and bulk are normal * Gait normal SENSORY EXAM: * Temperature, pinprick, vibration are intact in all 4 extremities. She has some chronic sensory changes in her right lower extremity from prior surgery CEREBELLAR EXAM: * Gzkhbm-wq-maxo and alternating movements are intact and normal in bilateral upper extremities * Fvwb-av-[id number] and alternating movements are intact and normal in lower extremities REFLEX EXAM: * 2/4 throughout Results Laboratory Findings CBC and BMP: 08/12/22 05:12 08/12/22 05:12 Assessment/Plan (1) Blurry vision: Code(s): H53.8 - Other visual disturbances Status: Acute (2) Headache: Code(s): R51.9 - Headache, unspecified Status: Acute Plan Is a 31-year-old female with history of bipolar 1 disorder, personality disorder, depression, and daily tobacco use. She presented to outside facility for persistent headache and blurred vision that have been present for almost a week. CT scan of the head is read as nonacute however it did show partially nonexpanded partially empty sella which is unchanged from prior imaging. Press is a consideration however her blood pressure is not elevated and its actually on the low end making this less likely. Pseudotumor cerebri is a consideration or possibly venous thrombosis. We will get an MRI and an MRV. We will considerlumbar puncture based on these results. Evaluation at [facility]: * CT scan head is nonacute. Nonexpanded partially empty sella which is unchanged compared to prior exam in June 2021. No evidence of sellar expansion or enlargement of the optic nerve sheaths * Urinalysis negative * Lactic acid 1.5 * TSH one-point * Lipase 84 * PTT 25.3, PT 10.4, INR 0.96 * High-sensitivity troponin 4.5 * Sodium 137, potassium 3.4, chloride 100, CO2 27.7, glucose 109, BUN 10, creatinine 0.71 * Calcium 9.4 * ALT 32, AST 24, alkaline phosphate 87 * Anion gap 12 point * WBC 15.3, hemoglobin 13.3, hematocrit 39.4, platelets 364. Neutrophils 10.3, monocytes 0.9 * EKG shows sinus rhythm with rate of 72 * Blood pressure 149/93, pulse 74, respiratory rate 16, 100% on room air * negative * COVID-negative, influenza B-negative 1. CT scan of the brain as above. MRI scan of the brain is pending 2. MRV is pending 3. Sed rate pending and CRP 0.5 4. Lumbar puncture with opening pressure 5. We will hold on Trileptal for now. Will consider medications based on MRI and lumbar puncture results 6. Further recommendations to follow based on above evaluation and the patient's clinical course Thank you for the consult Attestation Statement I agree with the above. Patient seen and examined. 31-year-old woman without significant headache history who was developed significant headaches as well as nausea and vague vision complaints in the past 2 weeks. Concern has been raised for idiopathic intracranial hypertension basedon the appearance of a partially empty sella on a CT scan. Our MRI images here are less concerning for signs of intracranial hypertension. Her headaches happen to coincide with discontinuation of topiramate, which she had been takingchronically for many years as a mood stabilizer and was prescribed by her psychiatrist. The absence of topiramate may have unmasked a headache syndrome due to either migraine or potentially the idiopathic intracranial hypertension. She has had some vague visual symptoms here recently. Cerebral venous sinus thrombosis was considered but MRI and MRV look normal. I attempted a bedside lumbar puncture to get an opening pressure but unfortunately was unable to withdraw fluid or check a pressure. We will have to reschedule that in the outpatient setting. For the time being I want her to go back on the topiramate. After the topiramate she was started on some oxcarbazepine some medication interaction will have to be watched for. Restart the topiramate at 50 mg twice daily (was previously taking 100 mg once daily). Okay for discharge [facility]. Documented By: EDINSON Dias [id number] Signed By: <Electronically signed by EDINSON Niño> 08/12/22 0958 <Electronically signed by Kenrick Lee DO> 08/12/22 1621 [facility] Work Phone: 1(393) 655-642911-28-2022 History and physical note Author Sangeetha Peña [facility] August 11, 2022 9:43pm Note Date/Time August 11, 2022 9:08pm [facility] [address] [place] [address] Hospitalist H&P Signed Patient: Shazia Chou MR#: [id number] : 1990 Acct:[id number] Age/Sex: 31 / F Adm Date: 2 Loc: Room: [address] [place] [address] Type: ADM IN Attending Dr: Erin Barahona MD Copies to: MD Erin Mcwilliams MD~ HPI DATE OF EXAMINATION: 08/11/22 CHIEF COMPLAINT: Headache with blurry vision HISTORY OF PRESENT ILLNESS: Patient is a pleasant 31-year-old female with history of borderline personality disorder, bipolar disorder and depression. She was accepted by daytime hospitalist when contacted by [facility] physician due to concern for headache and blurry vision. On examination on the floor she was sitting comfortably withblood pressure 115 systolic. She is complaining of headache and some blurry vision. Patient mentioned having the symptoms since Thursday she described a headache behind her eyes on frontal and occipital region. Headache gets worse on standing associated with nausea. She has also noticed having blurry vision which she describes as the objects she is seeing is clear but everything looks blurry behind. She also mentioned feeling slight cold for last few days and noted her blood pressure has been on the higher side. Denies head injury, recent fall, fever, chills, chest pain, abdominal pain or dysuria. She was seenin the [facility] on 08/08 with similar symptoms[facility]. Patient continues to have symptoms and mentioned earlier today she was having some tunnel vision and dry heaving which brought her to the ER. Recent COVID test was negative as well. In the ERCT head showed nonexpanded partially empty sella which was unchanged from prior imaging. No mass or hemorrhage seen. Her labs showed lactic acid 1.5, potassium 3.4, WBC 15.3, hemoglobin 13.3, TSH 1.7 and creatinine 0.71. Urine analysis not suggestive of UTI. Patient also mentioned that she was recently started on Trileptal by her psychiatric after weaning off Topamax. She thought that might be causing her elevated blood pressure and stopped taking Trileptal. Review of Systems Review of Systems All other systems reviewed & are negative unless noted below or in HPI PMFSH Vaccinated for COVID-19?: Yes Medical History (Updated 08/11/22 @ 21:40 by Sangeetha Peña MD) Alcoholism in recovery Bipolar 1 disorder Borderline personality disorder Current every day smoker Depression Plantar fasciitis, bilateral Surgical History (Updated 08/11/22 @ 21:07 by Angelita Chamorro RN) H/O decompression of ulnar nerve H/O gastric bypass Previous section Family History Mother Pancreatic cancer Father Keisha Gehrig disease Social History Smoking Status: Current every day smoker Tobacco Type: cigarettes Substance Use Type: Alcohol Substance Abuse Comment: recovery alcohol user Meds Medications and Allergies Allergies coconut Allergy (Verified 07/18/20 14:12) Swelling of Lip/Tongue/Throat Home Medications brexpiprazole 3 mg tablet (Rexulti) 4 mg PO QHS 01/08/19 [History Confirmed 08/11/22] duloxetine 60 mg capsule,delayed release (Cymbalta) 60 mg PO QHS 01/08/19 [History Confirmed 08/11/22] topiramate 100 mg tablet (Topamax) 100 mg PO QHS 01/08/19 [History Confirmed 07/19/20] lorazepam 1 mg tablet 1 mg PO BID PRN Anxiety 07/18/20 [History Confirmed 07/19/20] pantoprazole 40 mg tablet,delayed release 40 mg PO DAILY 07/18/20 [History Confirmed 08/11/22] ergocalciferol (vitamin D2) 1,250 mcg (50,000 unit) capsule 50,000 unit PO QWEEK07/19/20 [History Confirmed 07/19/20] quetiapine 100 mg tablet 100 mg PO QHS 07/19/20 [History Confirmed 07/19/20] duloxetine 30 mg capsule,delayed release 30 mg PO QHS 30 days #30 caps 07/20/20 [Rx] calcium carbonate 500 mg calcium (1,250 mg) tablet 500 mg PO BID 08/11/22 [History Confirmed 08/11/22] multivitamin 1 tab PO DAILY 08/11/22 [History Confirmed 08/11/22] trazodone 100 mg tablet 100 mg PO QHS 08/11/22 [History Confirmed 08/11/22] Exam Const General: cooperative and comfortable Orientation: alert, awake and oriented x3 HEENT Head: normal to inspection, no palpable skull fracture, normocephalic and atraumatic Eyes Eyelids: eyelids normal Pupils: PERRL EOM: EOM intact bilaterally and No nystagmus Neck Neck: normal visual inspection, full ROM and no meningeal signs Resp Effort & Inspection: normal respiratory effort and able to speak in complete sentences Auscultation: no rales, no rhonchi and no wheezes Cardio Rate: regular rate Rhythm: regular rhythm Heart Sounds: S1 normal and S2 normal GI Palpation: soft, not firm, no guarding and nontender Musc Cervical Spine: normal cervical lordosis and cervical ROM normal Neuro General: patient alert, patient awake, patient oriented x3, moves all extremities and no focal motor deficits Cranial Nerves: CN's II-XII intact bilaterally Cognition: normal cognition Speech: speech normal Motor: muscle tone normal throughout and strength 5/5 throughout Sensory Exam: no sensory deficits noted Other: Normal vision field. Extrem General: no clubbing, cyanosis or edema and no calf tenderness Psych Appearance: grossly normal A&P - Hospitalist Assessment/Plan (1) Bipolar 1 disorder: (2) Borderline personality disorder: (3) Headache: (4) Blurry vision: Plan Patient has been transferred from [facility] when she presented with complaint of headache and blurry vision. During my evaluation her blood pressure is in 115 systolic and complaining of headache with blurry vision. Denies diplopia with no pain in extraocular movement. There is concern for possible idiopathic intracranial hypertension and patient has been transferred to [facility] for further management and neurology evaluation. Will obtain MRIbrain with and without contrast along with MRV. Patient also mentioned being weaned off Topamax and was started on Trileptal which she stopped taking. IV hydralazine as needed for accelerated hypertension. Continue other home medications. DVT prophylaxis with SCDs as patient might require lumbar puncture. Documented By: Sangeetha Peña MD 08/11/222058 Signed By: <Electronically signed by Sangeetha Peña MD> 08/11/22 7830 [facility] Work Phone: [phone]) [phone] Evaluation + Plan noteExtracted from: Title:ED Note Author:Bakari Chester DO Date:10/08/21 Asymptomatic hypertension (I 10: Essential (primary) hypertension) Headache (R51.9: Headache, unspecified) Orders: APAP/butalbital/caffeine, 1 cap(s), Oral, q4hr for headache, 12 cap(s), Refill(s) 0, [id number], 162, cm, 08/08/22 9:11:00 EST, Height/Length Dosing, 83.1, kg, 08/08/22 9:11:00 EST, Weight Dosing ondansetron, 4 mg = 1 tab(s), Oral, q8hr, PRN Nausea/Vomiting, # 12 tab(s), Refills(s) 0, Pharmacy: [id number], 162, cm, 08/08/22 9:11:00 EST, Height/Length Dosing, 83.1, kg, 08/08/22 9:11:00 EST, Weight Dosing Automated Diff Basic Metabolic Panel Beta hCG Qual CBC w/ Auto Diff CT Head or Brain w/o Contrast eGFR Influenza A&B Ag Rapid COVID Antigen ([facility]) UA With Cult Reflex Future Scheduled Tests Laboratory* CBC w/ Auto Diff 07/21/22 Radiology* MA Mamm Screen w/CAD if perf and 3D Tanmay 04/21/22 [facility]11-25-2022 Hospital Discharge instructions Patient Education 08/08/2022 11:39:38 Idiopathic Intracranial Hypertension Idiopathic Intracranial Hypertension Idiopathic intracranial hypertension (IIH) is a condition that increases pressure around the brain.The fluid that surrounds the brain and spinal cord (cerebrospinal fluid, CSF) increases and causes the pressure. Idiopathic means that the cause of this condition is not known. IIH affects the brain and spinal cord (is a neurological disorder). If this condition is not treated, it can cause vision loss or blindness. What increases the risk? You are more likely to develop this condition if: You are severely overweight (obese). You are a woman who has not gone through menopause. You take certain medicines, such as control or steroids. What are the signs or symptoms? Symptoms of IIH include: Headaches. This is the most common symptom. Pain in the shoulders or neck. Nausea and vomiting. A rushing water or pulsing sound within the ears (pulsatile tinnitus). Double vision. Blurred vision. Brief episodes of complete vision loss. How is this diagnosed? This condition may be diagnosed based on: Your symptoms. Your medical history. CT scan of the brain. MRI of the brain. Magnetic resonance venogram (MRV) to check veins in the brain. Diagnostic lumbar puncture. This is a procedure to remove and examine a sample of cerebrospinal fluid. This procedure can determine whether too much fluid may be causing IIH. A thorough eye exam to check for swelling or nerve damage in the eyes. How is this treated? Treatment for this condition depends on your symptoms. The goal of treatment is to decrease the pressure around your brain. Common treatments include: Medicines to decrease the production of spinal fluid and lower the pressure within your skull. Medicines to prevent or treat headaches. Surgery to place drains (shunts) in your brain to remove excess fluid. Lumbar puncture to remove excess cerebrospinal fluid. Follow these instructions at home: If you are overweight or obese, work with your health care provider to lose weight. Take [id number] and prescription medicines only as told by your health care provider. Do not drive or use heavy machinery while taking medicines that can make you sleepy. Keep all follow-up visits as told by your health care provider. This is important. Contact a health care provider if: You have changes in your vision, such as: ?Double vision. ?Not being able to see colors (color vision). Get help right away if: You have any of the following symptoms and they get worse or do not get better. ?Headaches. ?Nausea. ?Vomiting. ?Vision changes or difficulty seeing. Summary Idiopathic intracranial hypertension (IIH) is a condition that increases pressure around the brain.The cause is not known (is idiopathic). The most common symptom of IIH is headaches. Treatment may include medicines or surgery to relieve the pressure on your brain. This information is not intended to replace advice given to you by your health care provider. Make sure you discuss any questions you have with your health care provider. Document Released: 11/09/2002 Document Revised: 08/13/2018 Document Reviewed: 07/22/2017 [employer] Patient Education 2020 [employer] Follow Up Care 08/08/2022 09:04:11 With:Kenrick Lee Address: [address] [place] [address] Business (1) When:08/11/2022 11:38:22 Comments:Follow-up with Dr. Lee to discuss your headaches. Seek immediate medical attention if you develop: worsening headache, nausea, vomiting, confusion, weakness, loss of motion in your arms or legs, loss of control of your urine or stool, difficulty waking from sleep, neck pain, fever, or any new orworsening symptoms. With:Aimee Walker Address:Unknown When:08/11/2022 11:38:16 Comments:Call the office of your primary care doctor to arrange for follow-up within the above-stated timeframe. Follow-up with your primary care doctor about this ED visit. You should review your labs, imaging, and diagnoses from this ED visit with your primary care physician. If you were prescribed medications you should discuss possible side-effects and drug interactions with your pharmacist. Call 911 or go to the nearest Emergency Department if you develop any new or worsening symptoms. [facility]11-07-2022 Evaluation + Plan note Future Scheduled Tests Laboratory* CBC w/ Auto Diff 07/21/22 Radiology* MA Mamm Screen w/CAD if perf and 3D Tanmay 04/21/22 [facility] 11-07-2022 Evaluation + Plan note Future Scheduled Tests Laboratory* CBC w/ Auto Diff 07/21/22 [facility]11-07-2022 Hospital Discharge instructions Patient Education 07/21/2022 11:22:36 Managing Bipolar Disorder Managing Bipolar Disorder When someone is diagnosed with bipolar disorder, the person may be relieved to now know why he or she has felt or behaved a certain way. The person may also feel overwhelmed about the treatment ahead, how to get needed support, and how to deal with the condition each day. With care and support, a person with bipolar disorder can learn to manage his or her symptoms and live with the condition. How to manage lifestyle changes Managing stress Stress is your body's reaction to life changes and events, both good and bad. Stress can play a major role in bipolar disorder, so it is important to learn how to manage stress. Some techniques to help you manage stress include: Meditation, muscle relaxation, and breathing exercises. Exercise. Even a short daily walk can help to lower stress levels. Getting enough good-quality sleep. Too little sleep can cause maryam to start (can trigger maryam). Making a schedule to manage your time. Knowing your daily schedule can help to keep you from feeling overwhelmed by tasks and deadlines. Spending time on hobbies you enjoy. Medicines Your health care provider may suggest certain medicines if he or she feels that they will help improve your condition. Avoid using caffeine, alcohol, and other substances that may prevent your medicines from working properly. It is also important to: Talk with your pharmacist or health care provider about all the medicines that you take, their possible side effects, and which medicines are safe to take together. Make it your goal to take part in all treatment decisions (shared decision- making). Ask about possible side effects of medicines that your health care provider recommends, and tell him or her how youfeel about having those side effects. It is best if shared decision-making with your health care provider is part of your total treatment plan. If you are taking medicines as part of your treatment, do not stop taking medicines before you ask your health care provider if it is safe to stop. You may need to have the medicine slowly decreased (tapered) over time to lower the risk of harmful side effects. Relationships Spend time with people whom you trust and with whom you feel a sense of understanding and calm. Tryto find friends or family members who make you feel safe and can help you control feelings of maryam. Consider going to couples counseling, family education classes, or family therapy to: Educate your loved ones about your condition and offer suggestions about how they can support you. Help resolve conflicts. Help develop communication skills in your relationships. How to recognize changes in your condition Everyone responds differently to treatment for bipolar disorder. Some signs that your condition is improving include: Leveling of your mood. You may have less anger and excitement about daily activities, and your low moods may not be as bad. Your symptoms being less intense. Feeling calm more often. Thinking clearly. Not experiencing consequences for extreme behavior. Feeling like your life is settling down. Your behavior seeming more normal to you and to other people. Some signs that your condition may be getting worse include: Sleep problems. Moods cycling between deep lows and unusually high (excess) energy. Extreme emotions. More anger at loved ones. Staying away from others, or isolating yourself. A feeling of power or superiority. Completing a lot of tasks in a very short amount of time. Unusual thoughts and behaviors. Suicidal thoughts. Follow these instructions at home: Medicines Take jtnn-ega-vihfvpi and prescription medicines only as told by your health care provider or pharmacist. Ask your pharmacist what hasc-dyz-mpmdsav cold medicines you should avoid. Some medicines can make symptoms worse. General instructions Ask for support from trusted family members or friends to make sure you stay on track with your treatment. Keep a journal to write down your daily moods, medicines, sleep habits, and life events. This may help you have more success with your treatment. Make and follow a routine for daily meal times. Eat healthy foods, such as whole grains, vegetables, and fresh fruit. Try to go to sleep and wake up around the same time every day. Keep all follow-up visits as told by your health care provider. This is important. Where to find support Talking to others Try making a list of the people you may want to tell about your condition, such as the people you trust most. Plan what you are willing and not willing to talk about. Think about your needs ahead of time, and how your friends and family members can support you. Let your loved ones know when they can share advice and when you would just like them to listen. Give your loved ones information about bipolar disorder, and encourage them to learn about the condition. Finances Not all insurance plans cover mental health care, so it is important to check with your insurance carrier. If paying for co-pays or counseling services is a problem, search for a local or community health mental health care center. Public mental health care services may be offered there at a low cost or no cost when you are not able to see a private health care provider. If you are taking medicine for depression, you may be able to get the generic form, which may be less expensive than brand-name medicine. Some makers of prescription medicines also offer help to patients who cannot afford the medicines they need. Questions to ask your health care provider: If you are taking medicines: ?How long do I need to take medicine? ?Are there any long-term side effects of my medicine? ?Are there any alternatives to taking medicine? How would I benefit from therapy? How often should I follow up with a health care provider? Contact a health care provider if: Your symptoms get worse or they do not get better with treatment. Get help right away if: You have thoughts about harming yourself or others. If you ever feel like you may hurt yourself or others, or have thoughts about taking your own life,get help right away. You can go to your nearest emergency department or call: Your local emergency services (911 in the [place] A suicide crisis helpline, such as the National Suicide Prevention Lifeline at . Thisis open 24-hours a day. Summary Learning ways to manage stress can help to calm you and may also help your treatment work better. There is a wide range of medicines that can help to treat bipolar disorder. Having healthy relationships can help to make your moods more stable. Contact a health care provider if your symptoms get worse or they do not get better with treatment. This information is not intended to replace advice given to you by your health care provider. Make sure you discuss any questions you have with your health care provider. Document Released: 12/31/2017 Document Revised: 12/23/2019 Document Reviewed: 12/31/2017 [employer] Patient Education 2020 [employer] 07/21/2022 11:21:57 Tobacco Use Disorder Tobacco Use Disorder Tobacco use disorder (TUD) occurs when a person craves, seeks, and uses tobacco, regardless of the consequences. This disorder can cause problems with mental and physical health. It can affect your ability to have healthy relationships, and it can keep you from meeting your responsibilities at work, home, or school. Tobacco may be: Smoked as a cigarette or cigar. Inhaled using e-cigarettes. Smoked in a pipe or hookah. Chewed as smokeless tobacco. Inhaled into the nostrils as snuff. Tobacco products contain a dangerous chemical called nicotine, which is very addictive. Nicotine triggers hormones that make the body feel stimulated and works on areas of the brain that make you feel good. These effects can make it hard for people to quit nicotine. Tobacco contains many other unsafe chemicals that can damage almost every organ in the body. Smoking tobacco also puts others in danger due to fire risk and possible health problems caused by breathing in secondhand smoke. What are the signs or symptoms? Symptoms of TUD may include: Being unable to slow down or stop your tobacco use. Spending an abnormal amount of time getting or using tobacco. Craving tobacco. Cravings may last for up to 6 months after quitting. Tobacco use that: ?Interferes with your work, school, or home life. ?Interferes with your personal and social relationships. ?Makes you give up activities that you once enjoyed or found important. Using tobacco even though you know that it is: ?Dangerous or bad for your health or someone else's health. ?Causing problems in your life. Needing more and more of the substance to get the same effect (developing tolerance). Experiencing unpleasant symptoms if you do not use the substance (withdrawal). Withdrawal symptoms may include: ?Depressed, anxious, or irritable mood. ?Difficulty concentrating. ?Increased appetite. ?Restlessness or trouble sleeping. Using the substance to avoid withdrawal. How is this diagnosed? This condition may be diagnosed based on: Your current and past tobacco use. Your health care provider may ask questions about how your tobacco use affects your life. A physical exam. You may be diagnosed with TUD if you have at least two symptoms within a 12- month period. How is this treated? This condition is treated by stopping tobacco use. Many people are unable to quit on their own and need help. Treatment may include: Nicotine replacement therapy (NRT). NRT provides nicotine without the other harmful chemicals in tobacco. NRT gradually lowers the dosage of nicotine in the body and reduces withdrawal symptoms. NRT is available as: ?Bqpe-lox-cnzhxsh gums, lozenges, and skin patches. ?Prescription mouth inhalers and nasal sprays. Medicine that acts on the brain to reduce cravings and withdrawal symptoms. A type of talk therapy that examines your triggers for tobacco use, how to avoid them, and how to cope with cravings (behavioral therapy). Hypnosis. This may help with withdrawal symptoms. Joining a support group for others coping with TUD. The best treatment for TUD is usually a combination of medicine, talk therapy, and support groups. Recovery can be a long process. Many people start using tobacco again after stopping (relapse). If you relapse, it does not mean that treatment will not work. Follow these instructions at home: Lifestyle Do not use any products that contain nicotine or tobacco, such as cigarettes and e-cigarettes. Avoid things that trigger tobacco use as much as you can. Triggers include people and situations that usually cause you to use tobacco. Avoid drinks that contain caffeine, including coffee. These may worsen some withdrawal symptoms. Find ways to manage stress. Wanting to smoke may cause stress, and stress can make you want to smoke. Relaxation techniques such as deep breathing, meditation, and yoga may help. Attend support groups as needed. These groups are an important part of long-term recovery for many people. General instructions Take ovew-jop-zzsvkhk and prescription medicines only as told by your health care provider. Check with your health care provider before taking any new prescription or hsjq-hpb-zjavftx medicines. Decide on a friend, family member, or smoking quit-line (such as 5-435-GSON-NOW in the [place] that you can call or text when you feel the urge to smoke or when you need help coping with cravings. Keep all follow-up visits as told by your health care provider and therapist. This is important. Contact a health care provider if: You are not able to take your medicines as prescribed. Your symptoms get worse, even with treatment. Summary Tobacco use disorder (TUD) occurs when a person craves, seeks, and uses tobacco regardless of the consequences. This condition may be diagnosed based on your current and past tobacco use and a physical exam. Many people are unable to quit on their own and need help. Recovery can be a long process. The most effective treatment for TUD is usually a combination of medicine, talk therapy, and support groups. This information is not intended to replace advice given to you by your health care provider. Make sure you discuss any questions you have with your health care provider. Document Released: 05/06/2005 Document Revised: 08/18/2018 Document Reviewed: 08/18/2018 [employer] Patient Education 2020 [employer] 07/21/2022 11:21:55 BMI for Adults BMI for Adults Body mass index (BMI) is a number that is calculated from a person's weight and height. BMI may help to estimate how much of a person's weight is composed of fat. BMI can help identify those who may be at higher risk for certain medical problems. How is BMI used with adults? BMI is used as a screening tool to identify possible weight problems. It is used to check whether aperson is obese, overweight, healthy weight, or underweight. How is BMI calculated? BMI measures your weight and compares it to your height. This can be done either in [place] or metric measurements. Note that charts are available to help you find your BMI quickly and easily without having to do these calculations yourself. To calculate your BMI in [place] measurements, your health care provider will: 1.Measure your weight in pounds (lb). 2.Multiply the number of pounds by 703. For example, for a person who weighs 180 lb, multiply that number by 703, which equals 126,540. 3.Measure your height in inches (in). Then multiply that number by itself to get a measurement called inches squared. For example, for a person who is 70 in tall, the inches squared measurement is 70 in x 70 in, which equals 4900 inches squared. 4.Divide the total from Step 2 (number of lb x 703) by the total from Step 3 (inches squared): 126,540 4900 = 25.8. This is your BMI. To calculate your BMI in metric measurements, your health care provider will: 1.Measure your weight in kilograms (kg). 2.Measure your height in meters (m). Then multiply that number by itself to get a measurement called meters squared. For example, for a person who is 1.75 m tall, the meters squared measurement is 1.75 m x 1.75 m, which is equal to 3.1 meters squared. 3.Divide the number of kilograms (your weight) by the meters squared number. In this example: 70 3.1 = 22.6. This is your BMI. How is BMI interpreted? To interpret your results, your health care provider will use BMI charts to identify whether you are underweight, normal weight, overweight, or obese. The following guidelines will be used: Underweight: BMI less than 18.5. Normal weight: BMI between 18.5 and 24.9. Overweight: BMI between 25 and 29.9. Obese: BMI of 30 and above. Please note: Weight includes both fat and muscle, so someone with a muscular build, such as an athlete, may havea BMI that is higher than 24.9. In cases like these, BMI is not an accurate measure of body fat. To determine if excess body fat is the cause of a BMI of 25 or higher, further assessments may needto be done by a health care provider. BMI is usually interpreted in the same way for men and women. Why is BMI a useful tool? BMI is useful in two ways: Identifying a weight problem that may be related to a medical condition, or that may increase the risk for medical problems. Promoting lifestyle and diet changes in order to reach a healthy weight. Summary Body mass index (BMI) is a number that is calculated from a person's weight and height. BMI may help to estimate how much of a person's weight is composed of fat. BMI can help identify those who may be at higher risk for certain medical problems. BMI can be measured using [place] measurements or metric measurements. To interpret your results, your health care provider will use BMI charts to identify whether you are underweight, normal weight, overweight, or obese. This information is not intended to replace advice given to you by your health care provider. Make sure you discuss any questions you have with your health care provider. Document Released: 05/12/2005 Document Revised: 08/13/2018 Document Reviewed: 07/14/2018 [employer] Patient Education 2020 [employer] 07/21/2022 11:21:53 Leukocytosis Leukocytosis Leukocytosis means that a person has more white blood cells than normal. White blood cells are madein the bone marrow. Bone marrow is the spongy tissue inside bones. The main job of white blood cells is to fight infection. Having too many white blood cells is a common condition. It can develop as a result of many types of medical problems. What are the causes? Leukocytosis may be caused by various conditions. In some cases, the bone marrow is normal but is still making too many white blood cells. This can be due to: Infection. Injury. Physical stress. Emotional stress. Surgery. Allergic reactions. Tumors that do not start in the blood or bone marrow. An inherited disease. Certain medicines. and labor. In other cases, a person may have a bone marrow disorder that is causing the body to make too many white blood cells. Bone marrow disorders include: Leukemia. This is a type of blood cancer. Myeloproliferative disorders. These disorders cause blood cells to grow abnormally. What are the signs or symptoms? Often, this condition causes no symptoms. Some people may have symptoms due to the medical condition that is causing their leukocytosis. These symptoms may include: Bleeding. Bruising. Fever. Night sweats. Swollen lymph nodes. An enlarged spleen. Repeated infections. Weakness. Weight loss. How is this diagnosed? This condition is diagnosed with blood tests. It is often found when blood is tested as part of a routine physical exam. You may have other tests to help determine why you have too many white blood cells. These tests may include: A complete blood count (CBC). This test measures all the types of blood cells in your body. Chest X-rays, urine tests, or other tests to look for signs of infection. Bone marrow aspiration. For this test, a needle is put into your bone. Cells from the bone marrow are removed through the needle and examined under a microscope. Other tests on the blood or bone marrow sample. CT scan, bone scan, or other imaging tests. How is this treated? Usually, treatment is not needed for leukocytosis. However, if an infection, cancer, bone marrow disorder, or other serious problem is causing your leukocytosis, it will need to be treated. Treatmentmay include: Regular monitoring of your white blood cell count to look for changes. Antibiotic medicine if you have a bacterial infection. Bone marrow transplant. This treatment replaces your diseased bone marrow with healthy cells that will grow new bone marrow. Chemotherapy or biological therapies such as the use of antibodies. These treatments may be used tokill cancer cells or to decrease the number of white blood cells. Follow these instructions at home: Medicines Take utgx-fkx-vtdkvsq and prescription medicines only as told by your health care provider. If you were prescribed an antibiotic medicine, take it as told by your health care provider. Do notstop taking the antibiotic even if you start to feel better. Eating and drinking Eat foods that are low in saturated fats and high in fiber. Eat plenty of fruits and vegetables. Drink enough fluid to keep your urine pale yellow. Limit your intake of caffeine and alcohol. General instructions Maintain a healthy weight. Ask your health care provider what weight is best for you. Do 30 minutes of exercise at least 5 times each week. Check with your health care provider before you start a new exercise routine. Follow any safety precautions as told by your health care provider. This may be needed if you are at increased risk for infection or bleeding because of your condition. Do not use any products that contain nicotine or tobacco, such as cigarettes, e- cigarettes, and chewing tobacco. If you need help quitting, ask your health care provider. Keep all follow-up visits as told by your health care provider. This is important. Contact a health care provider if you: Feel weak or more tired than usual. Develop chills, a cough, or nasal congestion. Have a fever. Lose weight without trying. Have night sweats. Bruise easily. Have new or worsening symptoms. Get help right away if you: Bleed more than normal. Have chest pain. Have trouble breathing. Have uncontrolled nausea or vomiting. Feel dizzy or light-headed. Summary Leukocytosis means that a person has more white blood cells than normal. This condition often causes no symptoms. This condition may be caused by various conditions. If an infection, cancer, bone marrow disorder, or other serious problem is causing your leukocytosis, it will need to be treated. Keep all follow-up visits as told by your health care provider. This is important. This information is not intended to replace advice given to you by your health care provider. Make sure you discuss any questions you have with your health care provider. Document Released: 08/19/2012 Document Revised: 05/26/2019 Document Reviewed: 05/26/2019 [employer] Patient Education 2020 [employer] Follow Up Care 07/18/2022 10:46:12 With:Aimee Walker CNP Address: When: only if needed [facility] 11-04-2022 Miscellaneous Notes* Telephone Encounter - Cat Rojo LPN - 07/18/2022 11:04 AM EDT Call placed to patient, no answer. Left message for patient to proceed with nicotine testing prior to scheduling. Please transfer to plastic surgery nurse if patient returns call with questions. [facility] Plan note Future Scheduled Tests Radiology* MRI Breast w/o and w/ Contrast, Left 05/13/22 * [place] Mamm Screen w/CAD if perf and 3D [place] 04/21/22 [facility] [place] 08-30-2022 Hospital Discharge instructions Patient Education 05/13/2022 10:45:43 Obesity, Adult Obesity, Adult Obesity is the condition of having too much total body fat. Being overweight or obese means that your weight is greater than what is considered healthy for your body size. Obesity is determined by a measurement called BMI. BMI is an estimate of body fat and is calculated from height and weight. Foradults, a BMI of 30 or higher is considered obese. Obesity can lead to other health concerns and major illnesses, including: Stroke. Coronary artery disease (CAD). Type 2 diabetes. Some types of cancer, including cancers of the colon, breast, uterus, and gallbladder. Osteoarthritis. High blood pressure (hypertension). High cholesterol. Sleep apnea. Gallbladder stones. Infertility problems. What are the causes? Common causes of this condition include: Eating daily meals that are high in calories, sugar, and fat. Being born with genes that may make you more likely to become obese. Having a medical condition that causes obesity, including: ?Hypothyroidism. ?Polycystic ovarian syndrome (PCOS). ?Binge-eating disorder. ?Meridian syndrome. Taking certain medicines, such as steroids, antidepressants, and seizure medicines. Not being physically active (sedentary lifestyle). Not getting enough sleep. Drinking high amounts of sugar-sweetened beverages, such as soft drinks. What increases the risk? The following factors may make you more likely to develop this condition: Having a family history of obesity. Being a woman of descent. Being a man of descent. Living in an area with limited access to: ?[place], recreation centers, or sidewalks. ?Healthy food choices, such as grocery stores and farmers' markets. What are the signs or symptoms? The main sign of this condition is having too much body fat. How is this diagnosed? This condition is diagnosed based on: Your BMI. If you are an adult with a BMI of 30 or higher, you are considered obese. Your waist circumference. This measures the distance around your waistline. Your skinfold thickness. Your health care provider may gently pinch a fold of your skin and measureit. You may have other tests to check for underlying conditions. How is this treated? Treatment for this condition often includes changing your lifestyle. Treatment may include some or all of the following: Dietary changes. This may include developing a healthy meal plan. Regular physical activity. This may include activity that causes your heart to beat faster (aerobicexercise) and strength training. Work with your health care provider to design an exercise program that works for you. Medicine to help you lose weight if you are unable to lose 1 pound a week after 6 weeks of healthy eating and more physical activity. Treating conditions that cause the obesity (underlying conditions). Surgery. Surgical options may include gastric banding and gastric bypass. Surgery may be done if: ?Other treatments have not helped to improve your condition. ?You have a BMI of 40 or higher. ?You have life-threatening health problems related to obesity. Follow these instructions at home: Eating and drinking Follow recommendations from your health care provider about what you eat and drink. Your health care provider may advise you to: ?Limit fast food, sweets, and processed snack foods. ?Choose low-fat options, such as low-fat milk instead of whole milk. ?Eat 5 or more servings of fruits or vegetables every day. ?Eat at home more often. This gives you more control over what you eat. ?Choose healthy foods when you eat out. ?Learn to read food labels. This will help you understand how much food is considered 1 serving. ?Learn what a healthy serving size is. ?Keep low-fat snacks available. ?Limit sugary drinks, such as soda, fruit juice, sweetened iced tea, and flavored milk. Drink enough water to keep your urine pale yellow. Do not follow a fad diet. Fad diets can be unhealthy and even dangerous. Physical activity Exercise regularly, as told by your health care provider. ?Most adults should get up to 150 minutes of moderate-intensity exercise every week. ?Ask your health care provider what types of exercise are safe for you and how often you should exercise. Warm up and stretch before being active. Cool down and stretch after being active. Rest between periods of activity. Lifestyle Work with your health care provider and a dietitian to set a weight-loss goal that is healthy and reasonable for you. Limit your screen time. Find ways to reward yourself that do not involve food. Do not drink alcohol if: ?Your health care provider tells you not to drink. ?You are , may be , or are planning to become . If you drink alcohol: ?Limit how much you use to: ?0 1 drink a day for women. ?0 2 drinks a day for men. ?Be aware of how much alcohol is in your drink. In the [place] one drink equals one 12 oz bottle of beer (355 mL), one 5 oz glass of wine (148 mL), or one 1 oz glass of hard liquor (44 mL). General instructions Keep a weight-loss journal to keep track of the food you eat and how much exercise you get. Take bptt-slg-krypeel and prescription medicines only as told by your health care provider. Take vitamins and supplements only as told by your health care provider. Consider joining a support group. Your health care provider may be able to recommend a support group. Keep all follow-up visits as told by your health care provider. This is important. Contact a health care provider if: You are unable to meet your weight loss goal after 6 weeks of dietary and lifestyle changes. Get help right away if you are having: Trouble breathing. Suicidal thoughts or behaviors. Summary Obesity is the condition of having too much total body fat. Being overweight or obese means that your weight is greater than what is considered healthy for your body size. Work with your health care provider and a dietitian to set a weight-loss goal that is healthy and reasonable for you. Exercise regularly, as told by your health care provider. Ask your health care provider what types of exercise are safe for you and how often you should exercise. This information is not intended to replace advice given to you by your health care provider. Make sure you discuss any questions you have with your health care provider. Document Released: 10/08/2005 Document Revised: 05/05/2019 Document Reviewed: 05/05/2019 [employer] Patient Education 2019 Anywhere to Go. [facility] General Surgery [place] [phone] Evaluation + Plan note Future Scheduled Tests Radiology* MA Mamm Screen w/CAD if perf and 3D [place] 04/21/22 [facility]08-08-2022 Hospital Discharge instructions Patient Education 04/21/2022 10:14:53 BMI for Adults BMI for Adults Body mass index (BMI) is a number that is calculated from a person's weight and height. BMI may help to estimate how much of a person's weight is composed of fat. BMI can help identify those who may be at higher risk for certain medical problems. How is BMI used with adults? BMI is used as a screening tool to identify possible weight problems. It is used to check whether aperson is obese, overweight, healthy weight, or underweight. How is BMI calculated? BMI measures your weight and compares it to your height. This can be done either in [place] or metric measurements. Note that charts are available to help you find your BMI quickly and easily without having to do these calculations yourself. To calculate your BMI in [place] measurements, your health care provider will: 1.Measure your weight in pounds (lb). 2.Multiply the number of pounds by 703. For example, for a person who weighs 180 lb, multiply that number by 703, which equals 126,540. 3.Measure your height in inches (in). Then multiply that number by itself to get a measurement called inches squared. For example, for a person who is 70 in tall, the inches squared measurement is 70 in x 70 in, which equals 4900 inches squared. 4.Divide the total from Step 2 (number of lb x 703) by the total from Step 3 (inches squared): 126,540 4900 = 25.8. This is your BMI. To calculate your BMI in metric measurements, your health care provider will: 1.Measure your weight in kilograms (kg). 2.Measure your height in meters (m). Then multiply that number by itself to get a measurement called meters squared. For example, for a person who is 1.75 m tall, the meters squared measurement is 1.75 m x 1.75 m, which is equal to 3.1 meters squared. 3.Divide the number of kilograms (your weight) by the meters squared number. In this example: 70 3.1 = 22.6. This is your BMI. How is BMI interpreted? To interpret your results, your health care provider will use BMI charts to identify whether you are underweight, normal weight, overweight, or obese. The following guidelines will be used: Underweight: BMI less than 18.5. Normal weight: BMI between 18.5 and 24.9. Overweight: BMI between 25 and 29.9. Obese: BMI of 30 and above. Please note: Weight includes both fat and muscle, so someone with a muscular build, such as an athlete, may havea BMI that is higher than 24.9. In cases like these, BMI is not an accurate measure of body fat. To determine if excess body fat is the cause of a BMI of 25 or higher, further assessments may needto be done by a health care provider. BMI is usually interpreted in the same way for men and women. Why is BMI a useful tool? BMI is useful in two ways: Identifying a weight problem that may be related to a medical condition, or that may increase the risk for medical problems. Promoting lifestyle and diet changes in order to reach a healthy weight. Summary Body mass index (BMI) is a number that is calculated from a person's weight and height. BMI may help to estimate how much of a person's weight is composed of fat. BMI can help identify those who may be at higher risk for certain medical problems. BMI can be measured using [place] measurements or metric measurements. To interpret your results, your health care provider will use BMI charts to identify whether you are underweight, normal weight, overweight, or obese. This information is not intended to replace advice given to you by your health care provider. Make sure you discuss any questions you have with your health care provider. Document Released: 05/12/2005 Document Revised: 08/13/2018 Document Reviewed: 07/14/2018 [employer] Patient Education 2020 Anywhere to Go. 04/21/2022 10:14:51 Lymphadenopathy Lymphadenopathy Lymphadenopathy means that your lymph glands are swollen or larger than normal (enlarged). Lymph glands, also called lymph nodes, are collections of tissue that filter bacteria, viruses, and waste from your bloodstream. They are part of your body's disease-fighting system (immune system), which protects your body from germs. There may be different causes of lymphadenopathy, depending on where it is in your body. Some typesgo away on their own. Lymphadenopathy can occur anywhere that you have lymph glands, including these areas: Neck (cervical lymphadenopathy). Chest (mediastinal lymphadenopathy). Lungs (hilar lymphadenopathy). Underarms (axillary lymphadenopathy). Groin (inguinal lymphadenopathy). When your immune system responds to germs, infection-fighting cells and fluid build up in your lymph glands. This causes some swelling and enlargement. If the lymph glands do not go back to normal after you have an infection or disease, your health care provider may do tests. These tests help to monitor your condition and find the reason why the glands are still swollen and enlarged. Follow these instructions at home: Get plenty of rest. Take qimi-ohi-isxxoay and prescription medicines only as told by your health care provider. Your health care provider may recommend gxyz-dxw-vebedwa medicines for pain. If directed, apply heat to swollen lymph glands as often as told by your health care provider. Use the heat source that your health care provider recommends, such as a moist heat pack or a heating pad. ?Place a towel between your skin and the heat source. ?Leave the heat on for 20 30 minutes. ?Remove the heat if your skin turns bright red. This is especially important if you are unable to feel pain, heat, or cold. You may have a greater risk of getting burned. Check your affected lymph glands every day for changes. Check other lymph gland areas as told by your health care provider. Check for changes such as: ?More swelling. ?Sudden increase in size. ?Redness or pain. ?Hardness. Keep all follow-up visits as told by your health care provider. This is important. Contact a health care provider if you have: Swelling that gets worse or spreads to other areas. Problems with breathing. Lymph glands that: ?Are still swollen after 2 weeks. ?Have suddenly gotten bigger. ?Are red, painful, or hard. A fever or chills. Fatigue. A sore throat. Pain in your abdomen. Weight loss. Night sweats. Get help right away if you have: Fluid leaking from an enlarged lymph gland. Severe pain. Chest pain. Shortness of breath. Summary Lymphadenopathy means that your lymph glands are swollen or larger than normal (enlarged). Lymph glands (also called lymph nodes) are collections of tissue that filter bacteria, viruses, andwaste from the bloodstream. They are part of your body's disease-fighting system (immune system). Lymphadenopathy can occur anywhere that you have lymph glands. If your enlarged and swollen lymph glands do not go back to normal after you have an infection or disease, your health care provider may do tests to monitor your condition and find the reason why theglands are still swollen and enlarged. Check your affected lymph glands every day for changes. Check other lymph gland areas as told by your health care provider. This information is not intended to replace advice given to you by your health care provider. Make sure you discuss any questions you have with your health care provider. Document Released: 06/09/2009 Document Revised: 08/13/2018 Document Reviewed: 07/16/2018 [employer] Patient Education 2020 Anywhere to Go. 04/21/2022 10:14:49 Tobacco Use Disorder Tobacco Use Disorder Tobacco use disorder (TUD) occurs when a person craves, seeks, and uses tobacco, regardless of the consequences. This disorder can cause problems with mental and physical health. It can affect your ability to have healthy relationships, and it can keep you from meeting your responsibilities at work, home, or school. Tobacco may be: Smoked as a cigarette or cigar. Inhaled using e-cigarettes. Smoked in a pipe or hookah. Chewed as smokeless tobacco. Inhaled into the nostrils as snuff. Tobacco products contain a dangerous chemical called nicotine, which is very addictive. Nicotine triggers hormones that make the body feel stimulated and works on areas of the brain that make you feel good. These effects can make it hard for people to quit nicotine. Tobacco contains many other unsafe chemicals that can damage almost every organ in the body. Smoking tobacco also puts others in danger due to fire risk and possible health problems caused by breathing in secondhand smoke. What are the signs or symptoms? Symptoms of TUD may include: Being unable to slow down or stop your tobacco use. Spending an abnormal amount of time getting or using tobacco. Craving tobacco. Cravings may last for up to 6 months after quitting. Tobacco use that: ?Interferes with your work, school, or home life. ?Interferes with your personal and social relationships. ?Makes you give up activities that you once enjoyed or found important. Using tobacco even though you know that it is: ?Dangerous or bad for your health or someone else's health. ?Causing problems in your life. Needing more and more of the substance to get the same effect (developing tolerance). Experiencing unpleasant symptoms if you do not use the substance (withdrawal). Withdrawal symptoms may include: ?Depressed, anxious, or irritable mood. ?Difficulty concentrating. ?Increased appetite. ?Restlessness or trouble sleeping. Using the substance to avoid withdrawal. How is this diagnosed? This condition may be diagnosed based on: Your current and past tobacco use. Your health care provider may ask questions about how your tobacco use affects your life. A physical exam. You may be diagnosed with TUD if you have at least two symptoms within a 12- month period. How is this treated? This condition is treated by stopping tobacco use. Many people are unable to quit on their own and need help. Treatment may include: Nicotine replacement therapy (NRT). NRT provides nicotine without the other harmful chemicals in tobacco. NRT gradually lowers the dosage of nicotine in the body and reduces withdrawal symptoms. NRT is available as: ?Atkt-hlr-fvbxsly gums, lozenges, and skin patches. ?Prescription mouth inhalers and nasal sprays. Medicine that acts on the brain to reduce cravings and withdrawal symptoms. A type of talk therapy that examines your triggers for tobacco use, how to avoid them, and how to cope with cravings (behavioral therapy). Hypnosis. This may help with withdrawal symptoms. Joining a support group for others coping with TUD. The best treatment for TUD is usually a combination of medicine, talk therapy, and support groups. Recovery can be a long process. Many people start using tobacco again after stopping (relapse). If you relapse, it does not mean that treatment will not work. Follow these instructions at home: Lifestyle Do not use any products that contain nicotine or tobacco, such as cigarettes and e-cigarettes. Avoid things that trigger tobacco use as much as you can. Triggers include people and situations that usually cause you to use tobacco. Avoid drinks that contain caffeine, including coffee. These may worsen some withdrawal symptoms. Find ways to manage stress. Wanting to smoke may cause stress, and stress can make you want to smoke. Relaxation techniques such as deep breathing, meditation, and yoga may help. Attend support groups as needed. These groups are an important part of long-term recovery for many people. General instructions Take cgvn-ofv-beuihfr and prescription medicines only as told by your health care provider. Check with your health care provider before taking any new prescription or ztlr-knk-qshohni medicines. Decide on a friend, family member, or smoking quit-line (such as 7-531-TFQS-NOW in the [place] that you can call or text when you feel the urge to smoke or when you need help coping with cravings. Keep all follow-up visits as told by your health care provider and therapist. This is important. Contact a health care provider if: You are not able to take your medicines as prescribed. Your symptoms get worse, even with treatment. Summary Tobacco use disorder (TUD) occurs when a person craves, seeks, and uses tobacco regardless of the consequences. This condition may be diagnosed based on your current and past tobacco use and a physical exam. Many people are unable to quit on their own and need help. Recovery can be a long process. The most effective treatment for TUD is usually a combination of medicine, talk therapy, and support groups. This information is not intended to replace advice given to you by your health care provider. Make sure you discuss any questions you have with your health care provider. Document Released: 05/06/2005 Document Revised: 08/18/2018 Document Reviewed: 08/18/2018 [employer] Patient Education 2020 Anywhere to Go. Follow Up Care 04/17/2022 09:51:05 With:Aimee Walker CNP Address: When: only if needed [facility] 08-07-2022 Hospital Discharge instructions Patient Education 04/20/2022 16:16:53 Lymphadenopathy Lymphadenopathy Lymphadenopathy means that your lymph glands are swollen or larger than normal (enlarged). Lymph glands, also called lymph nodes, are collections of tissue that filter bacteria, viruses, and waste from your bloodstream. They are part of your body's disease-fighting system (immune system), which protects your body from germs. There may be different causes of lymphadenopathy, depending on where it is in your body. Some typesgo away on their own. Lymphadenopathy can occur anywhere that you have lymph glands, including these areas: Neck (cervical lymphadenopathy). Chest (mediastinal lymphadenopathy). Lungs (hilar lymphadenopathy). Underarms (axillary lymphadenopathy). Groin (inguinal lymphadenopathy). When your immune system responds to germs, infection-fighting cells and fluid build up in your lymph glands. This causes some swelling and enlargement. If the lymph glands do not go back to normal after you have an infection or disease, your health care provider may do tests. These tests help to monitor your condition and find the reason why the glands are still swollen and enlarged. Follow these instructions at home: Get plenty of rest. Take akzf-uce-tbecqdy and prescription medicines only as told by your health care provider. Your health care provider may recommend yezf-meo-ghuzzev medicines for pain. If directed, apply heat to swollen lymph glands as often as told by your health care provider. Use the heat source that your health care provider recommends, such as a moist heat pack or a heating pad. ?Place a towel between your skin and the heat source. ?Leave the heat on for 20 30 minutes. ?Remove the heat if your skin turns bright red. This is especially important if you are unable to feel pain, heat, or cold. You may have a greater risk of getting burned. Check your affected lymph glands every day for changes. Check other lymph gland areas as told by your health care provider. Check for changes such as: ?More swelling. ?Sudden increase in size. ?Redness or pain. ?Hardness. Keep all follow-up visits as told by your health care provider. This is important. Contact a health care provider if you have: Swelling that gets worse or spreads to other areas. Problems with breathing. Lymph glands that: ?Are still swollen after 2 weeks. ?Have suddenly gotten bigger. ?Are red, painful, or hard. A fever or chills. Fatigue. A sore throat. Pain in your abdomen. Weight loss. Night sweats. Get help right away if you have: Fluid leaking from an enlarged lymph gland. Severe pain. Chest pain. Shortness of breath. Summary Lymphadenopathy means that your lymph glands are swollen or larger than normal (enlarged). Lymph glands (also called lymph nodes) are collections of tissue that filter bacteria, viruses, andwaste from the bloodstream. They are part of your body's disease-fighting system (immune system). Lymphadenopathy can occur anywhere that you have lymph glands. If your enlarged and swollen lymph glands do not go back to normal after you have an infection or disease, your health care provider may do tests to monitor your condition and find the reason why theglands are still swollen and enlarged. Check your affected lymph glands every day for changes. Check other lymph gland areas as told by your health care provider. This information is not intended to replace advice given to you by your health care provider. Make sure you discuss any questions you have with your health care provider. Document Released: 06/09/2009 Document Revised: 08/13/2018 Document Reviewed: 07/16/2018 [employer] Patient Education 2020 Anywhere to Go. Follow Up Care 04/20/2022 14:55:22 With:Aimee Walker Address: [address] [place] [address], [facility] [place] [place] [address] [phone] Business (1) When:04/23/2022 16:08:48 Comments:Follow-up with your primary care provider in 3 to 5 days. If symptoms worsen, do not improve, or new symptoms arise please report back to emergency department for further evaluation. [facility]08-07-2022 Evaluation + Plan noteExtracted from: Title:ED Note Author:Dony Alegre PA-C te:04/20/22 Axillary lymphadenopathy (R5 9.0: Localized enlarged lymph nodes) Orders: naproxen, 500 mg = 1 tab(s), Oral, BID, PRN for pain, # 20 tab(s), Refills(s) 0, Pharmacy: [facility]/pharmacy #[id number], 170, cm, 04/20/22 15:01:00 EDT, Height/Length Dosing, 81.5, kg, 04/20/22 15:01:00 EDT, Weight Dosing Automated Diff Basic Metabolic Panel CBC w/ Auto Diff eGFR XR Chest 2 Views Future Appointments Appointment Date:04/21/2022 09:40:00 AM Scheduled Provider:Aimee Walker CNP [facility] Appointment Type: Open [facility]07-21-2022 Hospital Discharge instructions Patient Education 04/03/2022 19:32:39 Health Maintenance, Female Health Maintenance, Female Adopting a healthy lifestyle and getting preventive care are important in promoting health and wellness. Ask your health care provider about: The right schedule for you to have regular tests and exams. Things you can do on your own to prevent diseases and keep yourself healthy. What should I know about diet, weight, and exercise? Eat a healthy diet Eat a diet that includes plenty of vegetables, fruits, low-fat dairy products, and lean protein. Do not eat a lot of foods that are high in solid fats, added sugars, or sodium. Maintain a healthy weight Body mass index (BMI) is used to identify weight problems. It estimates body fat based on height and weight. Your health care provider can help determine your BMI and help you achieve or maintain a healthy weight. Get regular exercise Get regular exercise. This is one of the most important things you can do for your health. Most adults should: Exercise for at least 150 minutes each week. The exercise should increase your heart rate and make you sweat (moderate-intensity exercise). Do strengthening exercises at least twice a week. This is in addition to the moderate-intensity exercise. Spend less time sitting. Even light physical activity can be beneficial. Watch cholesterol and blood lipids Have your blood tested for lipids and cholesterol at 20 years of age, then have this test every 5 years. Have your cholesterol levels checked more often if: Your lipid or cholesterol levels are high. You are older than 40 years of age. You are at high risk for heart disease. What should I know about cancer screening? Depending on your health history and family history, you may need to have cancer screening at various ages. This may include screening for: Breast cancer. Cervical cancer. Colorectal cancer. Skin cancer. Lung cancer. What should I know about heart disease, diabetes, and high blood pressure? Blood pressure and heart disease High blood pressure causes heart disease and increases the risk of stroke. This is more likely to develop in people who have high blood pressure readings, are of descent, or are overweight. Have your blood pressure checked: ?Every 3 5 years if you are 18 39 years of age. ?Every year if you are 40 years old or older. Diabetes Have regular diabetes screenings. This checks your fasting blood sugar level. Have the screening done: Once every three years after age 40 if you are at a normal weight and have a low risk for diabetes. More often and at a younger age if you are overweight or have a high risk for diabetes. What should I know about preventing infection? Hepatitis B If you have a higher risk for hepatitis B, you should be screened for this virus. Talk with your health care provider to find out if you are at risk for hepatitis B infection. Hepatitis C Testing is recommended for: Everyone born from 1945 through 1965. Anyone with known risk factors for hepatitis C. Sexually transmitted infections (STIs) Get screened for STIs, including gonorrhea and chlamydia, if: ?You are sexually active and are younger than 24 years of age. ?You are older than 24 years of age and your health care provider tells you that you are at risk for this type of infection. ?Your sexual activity has changed since you were last screened, and you are at increased risk for chlamydia or gonorrhea. Ask your health care provider if you are at risk. Ask your health care provider about whether you are at high risk for HIV. Your health care providermay recommend a prescription medicine to help prevent HIV infection. If you choose to take medicineto prevent HIV, you should first get tested for HIV. You should then be tested every 3 months for as long as you are taking the medicine. If you are about to stop having your period (premenopausal) and you may become , seek counseling before you get . Take 400 to 800 micrograms (mcg) of folic acid every day if you become . Ask for control (contraception) if you want to prevent . Osteoporosis and menopause Osteoporosis is a disease in which the bones lose minerals and strength with aging. This can resultin bone fractures. If you are 65 years old or older, or if you are at risk for osteoporosis and fractures, ask your health care provider if you should: Be screened for bone loss. Take a calcium or vitamin D supplement to lower your risk of fractures. Be given hormone replacement therapy (HRT) to treat symptoms of menopause. Follow these instructions at home: Lifestyle Do not use any products that contain nicotine or tobacco, such as cigarettes, e- cigarettes, and chewing tobacco. If you need help quitting, ask your health care provider. Do not use street drugs. Do not share needles. Ask your health care provider for help if you need support or information about quitting drugs. Alcohol use Do not drink alcohol if: ?Your health care provider tells you not to drink. ?You are , may be , or are planning to become . If you drink alcohol: ?Limit how much you use to 0 1 drink a day. ?Limit intake if you are . Be aware of how much alcohol is in your drink. In the [place] one drink equals one 12 oz bottle of beer (355 mL), one 5 oz glass of wine (148 mL), or one 1 oz glass of hard liquor (44 mL). General instructions Schedule regular health, dental, and eye exams. Stay current with your vaccines. Tell your health care provider if: ?You often feel depressed. ?You have ever been abused or do not feel safe at home. Summary Adopting a healthy lifestyle and getting preventive care are important in promoting health and wellness. Follow your health care provider's instructions about healthy diet, exercising, and getting tested or screened for diseases. Follow your health care provider's instructions on monitoring your cholesterol and blood pressure. This information is not intended to replace advice given to you by your health care provider. Make sure you discuss any questions you have with your health care provider. Document Released: 03/15/2012 Document Revised: 08/24/2019 Document Reviewed: 08/24/2019 [employer] Patient Education 2020 Anywhere to Go. Follow Up Care 04/03/2022 16:59:04 With:Walkermario BONILLAAimee Address: [phone] When:04/06/2022 [facility]06-17-2022 Miscellaneous Notes* Telephone Encounter - Lina Chavez RN - 02/28/2022 3:[address] Mckee, patient must be 4 weeks nicotine free prior to scheduling and collection of cosmetic payment. [facility] History of Present illness Narrative* Amee Gonzalez PA-C - 02/12/2022 10:38 AM EDT Images from the original note were not included. Otolaryngology Consultation/Evaluation Note Head and Neck [place] ASSESSMENT: Burning tongue (primary encounter diagnosis) Irritation of oral cavity PLAN: - Oral mucosa at floor of mouth, Gisela's ducts, and frenulum irritated with mild erythema and thin white film. Tender to palpation although soft. No visible ulceration, lesion, or mass. Unclear etiology. - Flexible laryngoscopy today without apparent mass, lesion or infection although + mucosal changesconsistent with acid reflux. - Recommend Dexa/Nystatin solution QID x 7 days. Discussed proper use. - Recommend adequate hydration, minimize oral mucosa irritants as much as possible. - Highly encouraged smoking and alcohol cessation to avoid further irritation. FOLLOW UP: Return 1 week. Shared visit with Dr. Peña. Call sooner if problems develop. Amee Gonzalez PA-C Reason for Consult: Shazia Chou is a 31 year old female who is self referred for mouth sores . HPI: Shazia Chou is a 31 year old female who presents for evaluation of intermittent oral sores beginning around 2 months ago. Recently, roughly 2 weeks ago she noticed prominent tender sores with drainage on floor of mouth and ventral surface of tongue. Reports sensation of tongue burning with eating or drinking. Also feels that protein shakes get stuck in throat- difficult to swallow. PCP Rx'd magic mouth wash and Doxycycline tabs 02/06/22. Reports she was unable to afford compound so she was given separate solutions but has ran out after 1 week. She admits to a long history of tobacco use- smoking cigarettes on and off since she was 9 y/o. She also admits to frequent alcohol use- recent tr ied to quit but has started drinking again. Denies sore throat, otalgia, oral bleeding, odynophagia, aural fullness, unintentional weight loss, chills/night sweats, lumps in neck, hearing loss, tinnitus, nasal congestion. H/o bariatric surgery. + GERD taking Protonix daily. No past medical history on file. PAST SURGICAL HISTORY Procedure Laterality Date NONE Tobacco Use: 1 packs/day Alcohol Use: Yes (beer and wine once a month) No family history on file. Current Outpatient Medications Medication Sig brexpiprazole (REXULTI) 4 mg tablet Take by mouth once daily. topiramate (TOPAMAX) 100 mg tablet Take 100 mg by mouth twice daily. DULoxetine (CYMBALTA) 60 mg capsule Take 60 mg by mouth once daily. pantoprazole DR (PROTONIX) 40 mg tablet Take 40 mg by mouth once daily. zhhcpkksmdur-vzh-bzzg-FA-vit K (BARIATRIC MULTIVITAMINS) 45 mg iron- 800 mcg-120 mcg cap Take by mouth. calcium citrate-vitamin D3 500 mg-12.5 mcg /5 gram powd Take by mouth. vits w-ca,fe,fa(<1mg)( VITAMIN TAB) (Patient not taking: ) ferrous sulfate(IRON 325 MG (65 MG IRON) TAB) (Patient not taking: ) No current facility-administered medications for this visit. Patient has no known allergies. REVIEW OF SYSTEMS: Reviewed 02/12/2022, as per HPI above PHYSICAL EXAM: Physical exam template on 02/12/2022 was completed in entirety on day of appointment and negative except where noted below: GENERAL: On physical examination Shazia Chou is a well-developed, well nourished female. Her speech is normal and her voice is strong. Mental status revealed patient to be alert and oriented. Mood is appropriate. Fidgety. CRANIAL NERVES: II-X Grossly Intact HEAD AND FACE: Physical examination of the head, neck, external nose, external ears, mouth and facefails to demonstrate any significant abnormality or asymmetry to critical face to face observation.Skin and scalp are normal. EARS: RT- EAC patent, TM intact, mobile, free of infection or effusion LT- EAC patent, TM intact, mobile, free of infection or effusion NOSE: Examination of the nasal cavity revealed a septum which appears normal. The mucosa is pink, and the visible turbinates are normal on anterior rhinoscopy. There is no purulence or polyps. MASTICATION: The teeth appear in poor condition. The lips and gums are without lesions. ORAL CAVITY AND OROPHARYNX: The hard and soft palates, tonsil area, and posterior pharyngeal wall are without lesions. The oral mucosal lining of floor of mouth irritated with white film and tender to palpation specifically around b/l Amelia's ducts and frenulum. Ventral aspect of tongue tender topalpation although soft without ulceration, lesion, or palpable mass. Floor of mouth soft although tender to palpation. NECK: The neck appears symmetric without scars. On palpation, there are no masses or lymphadenopathy. The thyroid is not palpable and was free of masses. No salivary gland masses or hypertrophy is noted. PROCEDURE: FLEXIBLE LARYNGOSCOPY PRE-OPERATIVE DIAGNOSIS: Pain and Dysphagia + tobacco and alcohol history PERSONNEL PERFORMING PROCEDURE: Amee Gonzalez PA-C INDICATIONS: R/o pharyngeal and laryngeal mass, lesion, infection ANESTHESIA: Lidocaine and Oxymetazoline PROCEDURE: With the patient sitting upright in the examining chair and the risks, benefits, personnel and alternatives were discussed and the patient agrees to proceed. After the topical application of anesthesia, and after waiting an appropriate period of time for anesthesia/vasoconstriction to become effective, the flexible laryngoscope was passed through the anterior nares. The nose, nasopharynx, oropharynx, hypopharynx and larynx were examined. FINDINGS: The nasopharynx and oropharynx were normal without any lesions or masses visualized. ETs non-obstructed. The base of tongue, vallecula, epiglottis, aryepiglottic folds, pyriform sinuses, and lateral pharyngeal wall were normal without any lesions or masses visualized with the exception of: There was erythema of the posterior glottis, with some mucosal changes, consistent with Acid Reflux. True vocal fold movement was intact bilaterally. No lesions visualized. The patient's airway was widely patent with no evidence of obstruction. Patient tolerated procedure well without difficulty or complication. DATA: Care Everywhere chart reviewed Please see the top of this note for the Assessment and Plan. Amee Gonzalez PA-C Medical Decision Making: Problems: Low: Acute, uncomplicated illness or injury Data: Unique source(s) for external note(s) reviewed: 1 Risk: Moderate: Drug management Medical Decision Making Level: 3 - Low [facility] Discharge instructions Patient Education 02/06/2022 09:33:48 Tobacco Use Disorder Tobacco Use Disorder Tobacco use disorder (TUD) occurs when a person craves, seeks, and uses tobacco, regardless of the consequences. This disorder can cause problems with mental and physical health. It can affect your ability to have healthy relationships, and it can keep you from meeting your responsibilities at work, home, or school. Tobacco may be: Smoked as a cigarette or cigar. Inhaled using e-cigarettes. Smoked in a pipe or hookah. Chewed as smokeless tobacco. Inhaled into the nostrils as snuff. Tobacco products contain a dangerous chemical called nicotine, which is very addictive. Nicotine triggers hormones that make the body feel stimulated and works on areas of the brain that make you feel good. These effects can make it hard for people to quit nicotine. Tobacco contains many other unsafe chemicals that can damage almost every organ in the body. Smoking tobacco also puts others in danger due to fire risk and possible health problems caused by breathing in secondhand smoke. What are the signs or symptoms? Symptoms of TUD may include: Being unable to slow down or stop your tobacco use. Spending an abnormal amount of time getting or using tobacco. Craving tobacco. Cravings may last for up to 6 months after quitting. Tobacco use that: ?Interferes with your work, school, or home life. ?Interferes with your personal and social relationships. ?Makes you give up activities that you once enjoyed or found important. Using tobacco even though you know that it is: ?Dangerous or bad for your health or someone else's health. ?Causing problems in your life. Needing more and more of the substance to get the same effect (developing tolerance). Experiencing unpleasant symptoms if you do not use the substance (withdrawal). Withdrawal symptoms may include: ?Depressed, anxious, or irritable mood. ?Difficulty concentrating. ?Increased appetite. ?Restlessness or trouble sleeping. Using the substance to avoid withdrawal. How is this diagnosed? This condition may be diagnosed based on: Your current and past tobacco use. Your health care provider may ask questions about how your tobacco use affects your life. A physical exam. You may be diagnosed with TUD if you have at least two symptoms within a 12- month period. How is this treated? This condition is treated by stopping tobacco use. Many people are unable to quit on their own and need help. Treatment may include: Nicotine replacement therapy (NRT). NRT provides nicotine without the other harmful chemicals in tobacco. NRT gradually lowers the dosage of nicotine in the body and reduces withdrawal symptoms. NRT is available as: ?Utza-ftb-lgennjb gums, lozenges, and skin patches. ?Prescription mouth inhalers and nasal sprays. Medicine that acts on the brain to reduce cravings and withdrawal symptoms. A type of talk therapy that examines your triggers for tobacco use, how to avoid them, and how to cope with cravings (behavioral therapy). Hypnosis. This may help with withdrawal symptoms. Joining a support group for others coping with TUD. The best treatment for TUD is usually a combination of medicine, talk therapy, and support groups. Recovery can be a long process. Many people start using tobacco again after stopping (relapse). If you relapse, it does not mean that treatment will not work. Follow these instructions at home: Lifestyle Do not use any products that contain nicotine or tobacco, such as cigarettes and e-cigarettes. Avoid things that trigger tobacco use as much as you can. Triggers include people and situations that usually cause you to use tobacco. Avoid drinks that contain caffeine, including coffee. These may worsen some withdrawal symptoms. Find ways to manage stress. Wanting to smoke may cause stress, and stress can make you want to smoke. Relaxation techniques such as deep breathing, meditation, and yoga may help. Attend support groups as needed. These groups are an important part of long-term recovery for many people. General instructions Take tvdx-gif-hsrywhi and prescription medicines only as told by your health care provider. Check with your health care provider before taking any new prescription or zmcu-nou-eyxgigo medicines. Decide on a friend, family member, or smoking quit-line (such as 0-700-TSKM-NOW in the [place] that you can call or text when you feel the urge to smoke or when you need help coping with cravings. Keep all follow-up visits as told by your health care provider and therapist. This is important. Contact a health care provider if: You are not able to take your medicines as prescribed. Your symptoms get worse, even with treatment. Summary Tobacco use disorder (TUD) occurs when a person craves, seeks, and uses tobacco regardless of the consequences. This condition may be diagnosed based on your current and past tobacco use and a physical exam. Many people are unable to quit on their own and need help. Recovery can be a long process. The most effective treatment for TUD is usually a combination of medicine, talk therapy, and support groups. This information is not intended to replace advice given to you by your health care provider. Make sure you discuss any questions you have with your health care provider. Document Released: 05/06/2005 Document Revised: 08/18/2018 Document Reviewed: 08/18/2018 [employer] Patient Education 2020 Anywhere to Go. 02/06/2022 09:33:46 BMI for Adults BMI for Adults Body mass index (BMI) is a number that is calculated from a person's weight and height. BMI may help to estimate how much of a person's weight is composed of fat. BMI can help identify those who may be at higher risk for certain medical problems. How is BMI used with adults? BMI is used as a screening tool to identify possible weight problems. It is used to check whether aperson is obese, overweight, healthy weight, or underweight. How is BMI calculated? BMI measures your weight and compares it to your height. This can be done either in [place] or metric measurements. Note that charts are available to help you find your BMI quickly and easily without having to do these calculations yourself. To calculate your BMI in [place] measurements, your health care provider will: 1.Measure your weight in pounds (lb). 2.Multiply the number of pounds by 703. For example, for a person who weighs 180 lb, multiply that number by 703, which equals 126,540. 3.Measure your height in inches (in). Then multiply that number by itself to get a measurement called inches squared. For example, for a person who is 70 in tall, the inches squared measurement is 70 in x 70 in, which equals 4900 inches squared. 4.Divide the total from Step 2 (number of lb x 703) by the total from Step 3 (inches squared): 126,540 4900 = 25.8. This is your BMI. To calculate your BMI in metric measurements, your health care provider will: 1.Measure your weight in kilograms (kg). 2.Measure your height in meters (m). Then multiply that number by itself to get a measurement called meters squared. For example, for a person who is 1.75 m tall, the meters squared measurement is 1.75 m x 1.75 m, which is equal to 3.1 meters squared. 3.Divide the number of kilograms (your weight) by the meters squared number. In this example: 70 3.1 = 22.6. This is your BMI. How is BMI interpreted? To interpret your results, your health care provider will use BMI charts to identify whether you are underweight, normal weight, overweight, or obese. The following guidelines will be used: Underweight: BMI less than 18.5. Normal weight: BMI between 18.5 and 24.9. Overweight: BMI between 25 and 29.9. Obese: BMI of 30 and above. Please note: Weight includes both fat and muscle, so someone with a muscular build, such as an athlete, may havea BMI that is higher than 24.9. In cases like these, BMI is not an accurate measure of body fat. To determine if excess body fat is the cause of a BMI of 25 or higher, further assessments may needto be done by a health care provider. BMI is usually interpreted in the same way for men and women. Why is BMI a useful tool? BMI is useful in two ways: Identifying a weight problem that may be related to a medical condition, or that may increase the risk for medical problems. Promoting lifestyle and diet changes in order to reach a healthy weight. Summary Body mass index (BMI) is a number that is calculated from a person's weight and height. BMI may help to estimate how much of a person's weight is composed of fat. BMI can help identify those who may be at higher risk for certain medical problems. BMI can be measured using [place] measurements or metric measurements. To interpret your results, your health care provider will use BMI charts to identify whether you are underweight, normal weight, overweight, or obese. This information is not intended to replace advice given to you by your health care provider. Make sure you discuss any questions you have with your health care provider. Document Released: 05/12/2005 Document Revised: 08/13/2018 Document Reviewed: 07/14/2018 [employer] Patient Education 2020 Anywhere to Go. Follow Up Care 02/05/2022 13:43:34 With:Aimee Walker CNP Address: When: only if needed [facility] 05-18-2022 Hospital Discharge instructions Patient Education 01/29/2022 11:02:57 BMI for Adults BMI for Adults Body mass index (BMI) is a number that is calculated from a person's weight and height. BMI may help to estimate how much of a person's weight is composed of fat. BMI can help identify those who may be at higher risk for certain medical problems. How is BMI used with adults? BMI is used as a screening tool to identify possible weight problems. It is used to check whether aperson is obese, overweight, healthy weight, or underweight. How is BMI calculated? BMI measures your weight and compares it to your height. This can be done either in [place] or metric measurements. Note that charts are available to help you find your BMI quickly and easily without having to do these calculations yourself. To calculate your BMI in [place] measurements, your health care provider will: 1.Measure your weight in pounds (lb). 2.Multiply the number of pounds by 703. For example, for a person who weighs 180 lb, multiply that number by 703, which equals 126,540. 3.Measure your height in inches (in). Then multiply that number by itself to get a measurement called inches squared. For example, for a person who is 70 in tall, the inches squared measurement is 70 in x 70 in, which equals 4900 inches squared. 4.Divide the total from Step 2 (number of lb x 703) by the total from Step 3 (inches squared): 126,540 4900 = 25.8. This is your BMI. To calculate your BMI in metric measurements, your health care provider will: 1.Measure your weight in kilograms (kg). 2.Measure your height in meters (m). Then multiply that number by itself to get a measurement called meters squared. For example, for a person who is 1.75 m tall, the meters squared measurement is 1.75 m x 1.75 m, which is equal to 3.1 meters squared. 3.Divide the number of kilograms (your weight) by the meters squared number. In this example: 70 3.1 = 22.6. This is your BMI. How is BMI interpreted? To interpret your results, your health care provider will use BMI charts to identify whether you are underweight, normal weight, overweight, or obese. The following guidelines will be used: Underweight: BMI less than 18.5. Normal weight: BMI between 18.5 and 24.9. Overweight: BMI between 25 and 29.9. Obese: BMI of 30 and above. Please note: Weight includes both fat and muscle, so someone with a muscular build, such as an athlete, may havea BMI that is higher than 24.9. In cases like these, BMI is not an accurate measure of body fat. To determine if excess body fat is the cause of a BMI of 25 or higher, further assessments may needto be done by a health care provider. BMI is usually interpreted in the same way for men and women. Why is BMI a useful tool? BMI is useful in two ways: Identifying a weight problem that may be related to a medical condition, or that may increase the risk for medical problems. Promoting lifestyle and diet changes in order to reach a healthy weight. Summary Body mass index (BMI) is a number that is calculated from a person's weight and height. BMI may help to estimate how much of a person's weight is composed of fat. BMI can help identify those who may be at higher risk for certain medical problems. BMI can be measured using [place] measurements or metric measurements. To interpret your results, your health care provider will use BMI charts to identify whether you are underweight, normal weight, overweight, or obese. This information is not intended to replace advice given to you by your health care provider. Make sure you discuss any questions you have with your health care provider. Document Released: 05/12/2005 Document Revised: 08/13/2018 Document Reviewed: 07/14/2018 [employer] Patient Education 2020 Anywhere to Go. 01/29/2022 11:02:54 Complicated Grief Complicated Grief Grief is a normal response to the of someone close to you. Feelings of fear, anger, and guiltcan affect almost everyone who loses a loved one. It is also common to have symptoms of depression while you are grieving. These include problems with sleep, loss of appetite, and lack of energy. They may last for weeks or months after a loss. Complicated grief is different from normal grief or depression. Normal grieving involves sadness and feelings of loss, but those feelings get better and heal over time. Complicated grief is a severe type of grief that lasts for a long time, usually for several months to a year or longer. It interferes with your ability to function normally. Complicated grief may require treatment from a mental health care provider. What are the causes? The cause of this condition is not known. It is not clear why some people continue to struggle withgrief and others do not. What increases the risk? You are more likely to develop this condition if: The of your loved one was sudden or unexpected. The of your loved one was due to a violent event. Your loved one from suicide. Your loved one was a child or a young person. You were very close to your loved one, or you were dependent on him or her. You have a history of depression or anxiety. What are the signs or symptoms? Symptoms of this condition include: Feeling disbelief or having a lack of emotion (numbness). Being unable to enjoy good memories of your loved one. Needing to avoid anything or anyone that reminds you of your loved one. Being unable to stop thinking about the . Feeling intense anger or guilt. Feeling alone and hopeless. Feeling that your life is meaningless and empty. Losing the desire to move on with your life. How is this diagnosed? This condition may be diagnosed based on: Your symptoms. Complicated grief will be diagnosed if you have ongoing symptoms of grief for 6 12 months or longer. The effect of symptoms on your life. You may be diagnosed with this condition if your symptoms are interfering with your ability to live your life. Your health care provider may recommend that you see a mental health care provider. Many symptoms of depression are similar to the symptoms of complicated grief. It is important to be evaluated for complicated grief along with other mental health conditions. How is this treated? This condition is most commonly treated with talk therapy. This therapy is offered by a mental health specialist (psychiatrist). During therapy: You will learn healthy ways to cope with the loss of your loved one. Your mental health care provider may recommend antidepressant medicines. Follow these instructions at home: Lifestyle Take care of yourself. ?Eat on a regular basis, and maintain a healthy diet. Eat plenty of fruits, vegetables, lean protein, and whole grains. ?Try to get some exercise each day. Aim for 30 minutes of exercise on most days of the week. ?Keep a consistent sleep schedule. Try to get 8 or more hours of sleep each night. ?Start doing the things that you used to enjoy. Do not use drugs or alcohol to ease your symptoms. Spend time with friends and loved ones. General instructions Take qkhc-eul-unnkuqd and prescription medicines only as told by your health care provider. Consider joining a grief (bereavement) support group to help you deal with your loss. Keep all follow-up visits as told by your health care provider. This is important. Contact a health care provider if: Your symptoms prevent you from functioning normally. Your symptoms do not get better with treatment. Get help right away if: You have serious thoughts about hurting yourself or someone else. You have suicidal feelings. If you ever feel like you may hurt yourself or others, or have thoughts about taking your own life,get help right away. You can go to your nearest emergency department or call: Your local emergency services (911 in the [place] A suicide crisis helpline, such as the National Suicide Prevention Lifeline at . Thisis open 24 hours a day. Summary Complicated grief is a severe type of grief that lasts for a long time. This grief is not likely togo away on its own. Get the help you need. Some griefs are more difficult than others and can cause this condition. You may need a certain type of treatment to help you recover if the loss of your loved one was sudden, violent, or due to suicide. You may feel guilty about moving on with your life. Getting help does not mean that you are forgetting your loved one. It means that you are taking care of yourself. Complicated grief is best treated with talk therapy. Medicines may also be prescribed. Seek the help you need, and find support that will help you recover. This information is not intended to replace advice given to you by your health care provider. Make sure you discuss any questions you have with your health care provider. Document Released: 08/31/2006 Document Revised: 08/13/2018 Document Reviewed: 06/16/2018 [employer] Patient Education 2020 Anywhere [employer] Go. 01/29/2022 11:02:50 Alcohol Abuse and Dependence Information, Adult Alcohol Abuse and Dependence Information, Adult Alcohol is a widely available drug. People drink alcohol in different amounts. People who drink alcohol very often and in large amounts often have problems during and after drinking. They may developwhat is called an alcohol use disorder. There are two main types of alcohol use disorders: Alcohol abuse. This is when you use alcohol too much or too often. You may use alcohol to make yourself feel happy or to reduce stress. You may have a hard time setting a limit on the amount you drink. Alcohol dependence. This is when you use alcohol consistently for a period of time, and your body changes as a result. This can make it hard to stop drinking because you may start to feel sick or feel different when you do not use alcohol. These symptoms are known as withdrawal. How can alcohol abuse and dependence affect me? Alcohol abuse and dependence can have a negative effect on your life. Drinking too much can lead toaddiction. You may feel like you need alcohol to function normally. You may drink alcohol before work in the morning, during the day, or as soon as you get home from work in the evening. These actions can result in: Poor work performance. Job loss. Financial problems. Car crashes or criminal charges from driving after drinking alcohol. Problems in your relationships with friends and family. Losing the trust and respect of coworkers, friends, and family. Drinking heavily over a long period of time can permanently damage your body and brain, and can cause lifelong health issues, such as: Damage to your liver or pancreas. Heart problems, high blood pressure, or stroke. Certain cancers. Decreased ability to fight infections. Brain or nerve damage. Depression. Early (premature) . If you are careless or you crave alcohol, it is easy to drink more than your body can handle (overdose). Alcohol overdose is a serious situation that requires hospitalization. It may lead to permanent injuries or . What can increase my risk? Having a family history of alcohol abuse. Having depression or other mental health conditions. Beginning to drink at an early age. Binge drinking often. Experiencing trauma, stress, and an unstable home life during childhood. Spending time with people who drink often. What actions can I take to prevent or manage alcohol abuse and dependence? Do not drink alcohol if: ?Your health care provider tells you not to drink. ?You are , may be , or are planning to become . If you drink alcohol: ?Limit how much you use to: ?0 1 drink a day for women. ?0 2 drinks a day for men. ?Be aware of how much alcohol is in your drink. In the [place] one drink equals one 12 oz bottle of beer (355 mL), one 5 oz glass of wine (148 mL), or one 1 oz glass of hard liquor (44 mL). Stop drinking if you have been drinking too much. This can be very hard to do if you are used to abusing alcohol. If you begin to have withdrawal symptoms, talk with your health care provider or a person that you trust. These symptoms may include anxiety, shaky hands, headache, nausea, sweating, ornot being able to sleep. Choose to drink nonalcoholic beverages in social gatherings and places where there may be alcohol. Activity Spend more time on activities that you enjoy that do not involve alcohol, like hobbies or exercise. Find healthy ways to cope with stress, such as exercise, meditation, or spending time with people you care about. General information Talk to your family, coworkers, and friends about supporting you in your efforts to stop drinking. If they drink, ask them not to drink around you. Spend more time with people who do not drink alcohol. If you think that you have an alcohol dependency problem: ?Tell friends or family about your concerns. ?Talk with your health care provider or another health professional about where to get help. ?Work with a therapist and a chemical dependency counselor. ?Consider joining a support group for people who struggle with alcohol abuse and dependence. Where to find support Your health care provider. [employer]ART B[employer]: www.smartrecovery.org Therapy and support groups Local treatment centers or chemical dependency counselors. Local AA groups in your community: www.aa.org Where to find more information Centers for Disease Control and Prevention: www.cdc.gov National [place] on Alcohol Abuse and Alcoholism: www.niaaa.nih.gov Alcoholics Anonymous (AA): www.aa.org Contact a health care provider if: You drank more or for longer than you intended on more than one occasion. You tried to stop drinking or to cut back on how much you drink, but you were not able to. You often drink to the point of vomiting or passing out. You want to drink so badly that you cannot think about anything else. You have problems in your life due to drinking, but you continue to drink. You keep drinking even though you feel anxious, depressed, or have experienced memory loss. You have stopped doing the things you used to enjoy in order to drink. You have to drink more than you used to in order to get the effect you want. You experience anxiety, sweating, nausea, shakiness, and trouble sleeping when you try to stop drinking. Get help right away if: You have thoughts about hurting yourself or others. You have serious withdrawal symptoms, including: ?Confusion. ?Racing heart. ?High blood pressure. ?Fever. If you ever feel like you may hurt yourself or others, or have thoughts about taking your own life,get help right away. You can go to your nearest emergency department or call: Your local emergency services (911 in the [place] A suicide crisis helpline, such as the National Suicide Prevention Lifeline at . Thisis open 24 hours a day. Summary Alcohol abuse and dependence can have a negative effect on your life. Drinking too much or too often can lead to addiction. If you drink alcohol, limit how much you use. If you are having trouble keeping your drinking under control, find ways to change your behavior. Hobbies, calming activities, exercise, or support groups can help. If you feel you need help with changing your drinking habits, talk with your health care provider, a good friend, or a therapist, or go to an AA group. This information is not intended to replace advice given to you by your health care provider. Make sure you discuss any questions you have with your health care provider. Document Released: 08/25/2017 Document Revised: 12/20/2019 Document Reviewed: 11/08/2019 [employer] Patient Education 2019 Anywhere to Go. 01/29/2022 11:02:46 Managing Bipolar Disorder Managing Bipolar Disorder When someone is diagnosed with bipolar disorder, the person may be relieved to now know why he or she has felt or behaved a certain way. The person may also feel overwhelmed about the treatment ahead, how to get needed support, and how to deal with the condition each day. With care and support, a person with bipolar disorder can learn to manage his or her symptoms and live with the condition. How to manage lifestyle changes Managing stress Stress is your body's reaction to life changes and events, both good and bad. Stress can play a major role in bipolar disorder, so it is important to learn how to manage stress. Some techniques to help you manage stress include: Meditation, muscle relaxation, and breathing exercises. Exercise. Even a short daily walk can help to lower stress levels. Getting enough good-quality sleep. Too little sleep can cause maryam to start (can trigger maryam). Making a schedule to manage your time. Knowing your daily schedule can help to keep you from feeling overwhelmed by tasks and deadlines. Spending time on hobbies you enjoy. Medicines Your health care provider may suggest certain medicines if he or she feels that they will help improve your condition. Avoid using caffeine, alcohol, and other substances that may prevent your medicines from working properly. It is also important to: Talk with your pharmacist or health care provider about all the medicines that you take, their possible side effects, and which medicines are safe to take together. Make it your goal to take part in all treatment decisions (shared decision- making). Ask about possible side effects of medicines that your health care provider recommends, and tell him or her how youfeel about having those side effects. It is best if shared decision-making with your health care provider is part of your total treatment plan. If you are taking medicines as part of your treatment, do not stop taking medicines before you ask your health care provider if it is safe to stop. You may need to have the medicine slowly decreased (tapered) over time to lower the risk of harmful side effects. Relationships Spend time with people whom you trust and with whom you feel a sense of understanding and calm. Tryto find friends or family members who make you feel safe and can help you control feelings of maryam. Consider going to couples counseling, family education classes, or family therapy to: Educate your loved ones about your condition and offer suggestions about how they can support you. Help resolve conflicts. Help develop communication skills in your relationships. How to recognize changes in your condition Everyone responds differently to treatment for bipolar disorder. Some signs that your condition is improving include: Leveling of your mood. You may have less anger and excitement about daily activities, and your low moods may not be as bad. Your symptoms being less intense. Feeling calm more often. Thinking clearly. Not experiencing consequences for extreme behavior. Feeling like your life is settling down. Your behavior seeming more normal to you and to other people. Some signs that your condition may be getting worse include: Sleep problems. Moods cycling between deep lows and unusually high (excess) energy. Extreme emotions. More anger at loved ones. Staying away from others, or isolating yourself. A feeling of power or superiority. Completing a lot of tasks in a very short amount of time. Unusual thoughts and behaviors. Suicidal thoughts. Follow these instructions at home: Medicines Take xljo-bas-phlxxim and prescription medicines only as told by your health care provider or pharmacist. Ask your pharmacist what sihl-rpm-cobblbq cold medicines you should avoid. Some medicines can make symptoms worse. General instructions Ask for support from trusted family members or friends to make sure you stay on track with your treatment. Keep a journal to write down your daily moods, medicines, sleep habits, and life events. This may help you have more success with your treatment. Make and follow a routine for daily meal times. Eat healthy foods, such as whole grains, vegetables, and fresh fruit. Try to go to sleep and wake up around the same time every day. Keep all follow-up visits as told by your health care provider. This is important. Where to find support Talking to others Try making a list of the people you may want to tell about your condition, such as the people you trust most. Plan what you are willing and not willing to talk about. Think about your needs ahead of time, and how your friends and family members can support you. Let your loved ones know when they can share advice and when you would just like them to listen. Give your loved ones information about bipolar disorder, and encourage them to learn about the condition. Finances Not all insurance plans cover mental health care, so it is important to check with your insurance carrier. If paying for co-pays or counseling services is a problem, search for a local or community health mental health care center. Public mental health care services may be offered there at a low cost or no cost when you are not able to see a private health care provider. If you are taking medicine for depression, you may be able to get the generic form, which may be less expensive than brand-name medicine. Some makers of prescription medicines also offer help to patients who cannot afford the medicines they need. Questions to ask your health care provider: If you are taking medicines: ?How long do I need to take medicine? ?Are there any long-term side effects of my medicine? ?Are there any alternatives to taking medicine? How would I benefit from therapy? How often should I follow up with a health care provider? Contact a health care provider if: Your symptoms get worse or they do not get better with treatment. Get help right away if: You have thoughts about harming yourself or others. If you ever feel like you may hurt yourself or others, or have thoughts about taking your own life,get help right away. You can go to your nearest emergency department or call: Your local emergency services (911 in the [place] A suicide crisis helpline, such as the National Suicide Prevention Lifeline at . Thisis open 24-hours a day. Summary Learning ways to manage stress can help to calm you and may also help your treatment work better. There is a wide range of medicines that can help to treat bipolar disorder. Having healthy relationships can help to make your moods more stable. Contact a health care provider if your symptoms get worse or they do not get better with treatment. This information is not intended to replace advice given to you by your health care provider. Make sure you discuss any questions you have with your health care provider. Document Released: 12/31/2017 Document Revised: 12/23/2019 Document Reviewed: 12/31/2017 [employer] Patient Education 2020 [employer] [facility] 05-02-2022 Miscellaneous Notes* Telephone Encounter - Lina Chavez RN - 01/13/2022 10:22 AM EDT Spoke with patient at this time via phone call. Patient contacting office to discuss options for abdominal surgical intervention. Per Dr. Mckee's office note; recommended abdominoplasty; quoted castillo as needed. This RN educated patient on panniculectomy vs abdominoplasty. Patient states that she would like toproceed with Dr. Mckee's recommendation, abdominoplasty. In addition to this, bilateral breast reduction submitted to insurance by Dr. Mckee's office; patient states insurance contacted her and said it was approved. Notified patient that procedure is still pending on our end, when approved, we will contact her with the next steps. Patient reminded that discontinuing smoking is necessary to move forward with scheduling of surgery. Patient states that she is still weaning, I'm down to 1- 2 cigarettes a day . Patient verbalizes understanding of need for smoking cessation; likelihood of nicotine test discussed. * Telephone Encounter - Molly Ayers - 01/10/2022 9:11 AM EDT Patient is calling in because her insurance told her they would pay for the panniculectomy verses atummy tuck. Patient was wondering if she had the panniculectomy with lipo and the bellybutton. How much would that be for her out of pocket? Patient states that if she needed to come in for another consult she would. Please advise at [phone] documented in this encounterSt[facility] Miscellaneous Notes* Telephone Encounter - Rocio Hester Ma - 12/27/2021 2:06 PM EDT Spoke to Patient per Dr. Mckee. Patient was told that she needs to stop smoking cigarettes. Once shehas not smoked for a month she is to give us a call so Dr. Mckee can put in for a nicotine test. Once we have approval for surgery then Dr. Mckee can put in a surgical slip. Patient understood. Rocio Hester Ma documented in this encounterSt. [facility] History of Present illness Narrative* Radha Jara - 02/01/2021 9:47 AM EDT CLINICAL PHARMACY NOTE: MEDS TO BEDS Total # of Prescriptions Filled: 2 The following medications were delivered to the patient: Percocet 5-325mg Augmentin 875-125mg Additional Documentation: delivered to patient in room 236 02/01 at 9:44am. Co- pay paid with credit on [employer] ($4.31). * Gamaliel Harris DO - 01/31/2021 6:29 AM EDT Bariatric Surgery Progress Note PATIENT NAME: Shazia Chou TODAY'S DATE: 01/31/2021, 6:30 AM Chief Complaint Patient presents with Abdominal Pain possible abscess SUBJECTIVE: Pt seen and examined. No acute issues overnight. Denies any f/c, n/v, sob or chest pain. +flatus. Pain minimally improved. Tmax 37.3 OBJECTIVE: Vitals: BP 116/82 Pulse 98 Temp 98.4 F (36.9 C) (Oral) Resp 16 Ht 5' 7 (1.702 m) Wt 246 lb (111.6 kg) LMP 01/14/2021 (Exact Date) SpO2 100% BMI 38.53 kg/m INTAKE/OUTPUT: No intake or output data in the 24 hours ending 01/31/21 0630 General: AOx3, NAD Lungs: Symmetrical chest rise bilaterally, no audible wheezes or rhonchi Heart: S1S2 Abdomen: Soft, ND, tenderness periumbilically, non peritoneal, no rebound, incisions c/d/i Extremity: moves all extremities x4, No edema Data Review: CBC: Recent Labs 01/30/21 1020 01/31/21 0434 WBC 12.4* 15.0* HGB 11.7* 10.8* PLT 414 375 BMP: Recent Labs 01/30/21 1020 01/31/21 0434 NA 140 137 K 3.8 3.8 CL 104 105 CO2 19* 15* BUN 5* 3* CREATININE 0.47* 0.36* GLUCOSE 79 78 Hepatic: Recent Labs 01/30/21 1020 AST 26 ALT 33 ALKPHOS 107* BILITOT 0.25* Coagulation: Recent Labs 01/30/21 1020 01/30/21 1812 PROT 7.3 -- INR -- 1.1 ASSESSMENT Patient Active Problem List Diagnosis Anxiety and depression Bipolar disease, chronic (HCC) Morbid obesity with BMI of 40.0-44.9, adult (HCC) Arthritis History of nicotine use Gastroesophageal reflux disease without esophagitis Borderline personality disorder (HCC) Flat feet Bilateral foot pain Vitamin D deficiency Gastroesophageal reflux disease with esophagitis without hemorrhage Status post gastric bypass for obesity Hiatal hernia Dehydration Intra-abdominal abscess (HCC) 31 yo F s/p 01/07/21 nasim RolleY presented 01/30/21 with abdominal pain and several loops of jejunitis and serosal mass/fluid collection 3.2x2.4cm per CT A/P Omental Infarct vs other PLAN Cont supportive care, pain control prn IV Zosyn, monitor WBC and temperatures Ok for bariatric clears, abd binder, ok to shower Encourage ambulation, SCDs and chemical DVT Ppx Cont aggressive IS use and deep breathing Thank you, I have discussed the care of the patient, including pertinent history and exam findings, with the resident. I have seen and examined the patient and the marie elements of all parts of the encounter have been performed by me. I agree with the assessment, plan and orders as documented by the resident. Suspect Omental Infarct vs other Hydration Advance diet Overall improvement * Yvonne Singh [facility] - 01/30/2021 9:03 PM EDT Images from the original note were not included. Piperacillin-Tazobactam Extended Interval Interchange The following ordered dose of Piperacillin-Tazobactam has been changed to optimize its pharmacodynamic profile as approved by the Patient Care Review Committee. Ordered Dose __ 3.375 gm IV q6 (30 minute infusion) New Dose CrCl ? 20ml/min __ 3.375gm IV q8hrs (4-hour infusion) Pharmacists should be contacted for issues concerning drug compatibility with multiple IV medications. All doses will be prepared using 50ml D5W to be infused over 4-hours at a rate of 12.5ml/hr. Thank You, Yvonne Singh RPH 19:00 PM documented in this encounterCentervilleIT [facility] Phone: [phone]) 886-731905-15-2021 History of Present illness Narrative* Jasmine Burch RN - 01/26/2021 1:51 PM EDT Infusion complete, no complications, IV out and dressing applied. Encouraged patient to call with any questions. Patient left unit with steady gait to private residence. documented in this encounterCentervilleIT [facility] Phone: 1(447) 947-377804-27-2021 History of Present illness Narrative* Radha Jara - 01/08/2021 5:59 PM EDT CLINICAL PHARMACY NOTE: MEDS TO [facility] Select Patient?: No Total # of Prescriptions Filled: 3 The following medications were delivered to the patient: Percocet 5-325mg Promethazine 25mg Pantoprazole 40mg Total # of Interventions Completed: 0 Time Spent (min): 0 Additional Documentation: delivered to patient in room 247 01/08 at 5:43pm. Co- pay paid with [employer] ($7.02). * Gal Atwood DO - 01/08/2021 6:53 AM EDT General Surgery: Daily Progress Note PATIENT NAME: Shazia Chou TODAY'S DATE: 01/08/2021, 6:53 AM CC: Hurts to move SUBJECTIVE: Pt seen and examined at bedside. Vital signs stable, no acute events overnight, afebrile. Patient denies chest pain or shortness of breath. Patient tolerating small sips of water, ambulating to the restroom, urinating without difficulty, no flatus or bowel movement overnight. Some nausea immediately postoperatively, controlled with medication. OBJECTIVE: VITALS: BP 133/78 Pulse 82 Temp 97.9 F (36.6 C) (Oral) Resp 18 Ht 5' 7 (1.702 m) Wt 259 lb 11.2 oz (117.8 kg) LMP 12/12/2020 Comment: tulbligation SpO2 97% BMI 40.68 kg/m INTAKE/OUTPUT: Intake/Output Summary (Last 24 hours) at 01/08/2021 0653 Last data filed at 01/08/2021 0449 Gross per 24 hour Intake 1600 ml Output 2210 ml Net -610 ml PHYSICAL EXAM: General Appearance: awake, alert, oriented, in no acute distress HEENT: Normocephalic, atraumatic, mucus membranes moist Heart: Heart regular rate and rhythm Lungs: Equal chest rise and fall bilaterally, no increased work of breathing Abdomen: Soft, obese, appropriately tender to palpation, TINY drain in right upper quadrant, abdominal binder in place Incision: CDI, skin glue in place Extremities: No cyanosis, pitting edema, rashes noted. Skin: Skin color, texture, turgor normal. No rashes or lesions. IV Access: PIV Data: CBC with Differential: Lab Results Component Value Date WBC 18.0 01/08/2021 RBC 4.01 01/08/2021 HGB 12.2 01/08/2021 HCT 38.0 01/08/2021 PLT 304 01/08/2021 MCV 94.8 01/08/2021 MCH 30.4 01/08/2021 MCHC 32.1 01/08/2021 RDW 13.5 01/08/2021 LYMPHOPCT 24.2 06/08/2020 MONOPCT 6.8 06/08/2020 EOSPCT 3.9 06/08/2020 BASOPCT 0.7 06/08/2020 MONOSABS 0.5 06/08/2020 LYMPHSABS 1.8 06/08/2020 EOSABS 0.3 06/08/2020 BASOSABS 0.1 06/08/2020 CMP: Lab Results Component Value Date NA 139 01/08/2021 K 3.7 01/08/2021 CL 105 01/08/2021 CO2 23 01/08/2021 BUN 7 01/08/2021 CREATININE 0.57 01/08/2021 GFRAA >60 01/08/2021 LABGLOM >60 01/08/2021 GLUCOSE 106 01/08/2021 LABALBU 3.5 06/08/2020 CALCIUM 9.1 01/08/2021 BILITOT 0.2 06/08/2020 ALKPHOS 83 06/08/2020 AST 15 06/08/2020 ALT 29 06/08/2020 Radiology Review: No results found. ASSESSMENT: Active Hospital Problems Diagnosis Date Noted Status post gastric bypass for obesity [Z98.84] 01/07/2021 Hiatal hernia [K44.9] Morbid obesity with BMI of 40.0-44.9, adult ([facility]) [E66.01, Z68.41] 05/16/2020 30 y.o. female postop day 1 from Tian-en-Y gastric bypass procedure with hiatal hernia repair Plan: 1. Diet: Bariatric clears 2. Analgesia: Percocet, IV Dilaudid 3. GI prophylaxis: Pepcid 4. DVT prophylaxis: Heparin 5000 units 3 times daily 5. Activity: Continue to encourage ambulation/activity 6. Continue to encourage incentive spirometry 7. Empty drains 3 times daily 8. Labs reviewed, reactive leukocytosis improving, mild hypokalemia will replace IV 9. Upper GI esophagram today to evaluate for leak 10. Plan discharge later today if continuing to tolerate PO, ambulating, and no leak on imaging * Radha Caballero RN - 01/08/2021 12:00 AM EDT RN assisted pt in ambulating to restroom. Upon attempting to ambulate in hallway pt became nauseousand dizzy. Pt returned to bed. * Isela Lerma RN - 12/28/2020 1:17 PM EDT Medical Clearance obtained for OR 01-07-21 [facility] Phone: [phone]) 886-946804-27-2021 Hospital Discharge instructions* Instructions* Gamaliel Harris, - 01/08/2021 Discharge Instructions for Surgery You had a Tian-en- Y Gastric Bypass (29995) surgery to treat obesity. Recovery from this surgery can take several weeks and requires permanent lifestyle changes. What You Will Need Protein Supplements Bariatric Vitamins Abdominal Binder Incentive spirometer (a breathing device) Home Care It is important to keep the incisions clean and dry to promote healing. Shower with soap and rinse and dry thoroughly. If incisions are oozing, you may cover with clean gauze. Use the incentive spirometer every couple of hours. This is to make sure you are breathing deeply and keeping the air sacs within your lungs as open as possible to prevent respiratory problems. Diet It is important to follow the diet progression very closely in order to prevent complications. When arriving home, follow the Phase 1A Liquid Diet for one weeks. Dehydration and changes in bowelhabits can occur after surgery. Refer to your educational binder provided pre-op for additional information. Once you move to solids, food must be chewed well. When making food choices, you'll need to ensure adequate protein intake, while avoiding sweets and fatty foods. Eating too much or too quickly can cause vomiting or intense pain under your breastbone. Most people quickly learn how much food they can tolerate. Physical Activity When home, we recommend that you take frequent walks, as tolerated, to prevent complications and increase your endurance. Ask your doctor when you will be able to return to work. You may need to wait 2- [address] you are no longer using pain medications Do not lift anything over ten pounds for 4 weeks. Medications Remember to avoid aspirin, aspirin-containing products, and nonsteroidal anti- inflammatory drugs (NSAIDs, such as ibuprofen, naproxen, etc.). If you were taking these medications before the procedure, and had to stop, ask your doctor when you can resume taking them. Be sure to review your medications with your primary care provider at yourfollow up office visit. Lifestyle Changes Changing your diet and level of activity are the biggest lifestyle changes associated with your success. Be aware that you may have emotional ups and downs after this surgery. Follow-up Follow up with your primary care physician in one week. Follow up with Dr. Harris in 1 week. If you don't already have a scheduled appointment, please call the office at [phone]. Call Your Doctor If Any of the Following Occurs Monitor your recovery once you leave the hospital. If any of the following occur, call your doctor: Signs of infection, including fever above 100.5F Redness, swelling, increasing pain, excessive bleeding, or any discharge from the incision site Persistent nausea and/or vomiting Pain that you can't control with the medications you've been given Shortness of breath and/or chest pain Tachycardia (racing heart sensation) unrelieved by rest Pain, redness and/or swelling in your feet or legs Sudden onset of severe left shoulder pain or severe abdominal pain Any symptoms that are causing you concern In case of an emergency, call 911 immediately. [facility] Phone: 1(166) 511-257404-12-2021 Hospital Discharge instructions* Instructions* Mahesh Price APRN - CNP - 12/24/2020 Images from the original note were not included. Preoperative Instructions: Stop drinking clear liquids at midnight the night prior to surgery. gatorade per surgeon (Follow bowel prep instructions if instructed by your surgeon.) Arrive at the surgery center (Entrance B) by 5:30 -5:45 on 01/07/2021 (or as directed by your surgeon's office). If you have been given a blood band, you must bring it with you the day of surgery. Please stop any blood thinning medications as directed by your surgeon or prescribing physician. Failure to stop certain medications may interfere with your scheduled surgery. These may include: Aspirin, Warfarin (Coumadin), Clopidogrel (Plavix), Ibuprofen (Motrin, Advil), Naproxen (Aleve), Meloxicam (Mobic), Celecoxib (Celebrex), Eliquis, Pradaxa, Xarelto, Effient, Fish Oil, Herbal supplements. You may continue the rest of your medications through the night before surgery unless instructed otherwise. Please take only the following medication(s) the day of surgery with a small sip of water: Pantoprazole (Protonix), Topamax Please use and bring inhalers the day of surgery. Please bring CPAP the day of surgery. 12/24/20 10:50 AM Signature (Patient) Signature/date(Provider) REMINDERS: If you are going home the day of your procedure, you will need a friend or family member to drive you home after your procedure. Your local intermodal truck driver must be 18 years of age or older and able to sign off on your discharge instructions. Taxi cabs or any form of public transportation is not acceptable. It is preferable that the friend or family member stay at the hospital throughout your procedure. If you are going home the same day as your procedure, someone must remain with you for the first24 hours after your surgery if you receive anesthesia or sedation. If you do not have someone to stay with you, your procedure may be cancelled. Please do not wear any jewelry or body piercings the day of surgery. PREPARING FOR YOUR SURGERY: Before surgery, you can play an important role in your own health. Because skin is not sterile, we need to be sure that your skin is as free of germs as possible before surgery by carefully washing before surgery. Preparing or prepping skin before surgery can reduce the risk of a surgical site infection. Do not shave the area of your body where your surgery will be performed unless you received specific permission from your physician. You will need to shower at home the night before surgery and the morning of surgery with a special soap called chlorhexidine gluconate (CHG*). *Not to be used by people allergic to Chlorhexidine Gluconate (CHG). Following these instructions will help you be sure that your skin is clean before surgery. Instructions on cleaning your skin before surgery: The night before your surgery: You will need to shower with warm water (not hot) and the CHG soap. Use a clean wash cloth and a clean towel. Have clean clothes available to put on after the shower. First wash your hair with regular shampoo. Rinse your hair and body thoroughly to remove the shampoo. Wash your face with your regular soap or water only. Thoroughly rinse your body with warm water from the neck down. Turn water off to prevent rinsing the soap off too soon. With a clean wet washcloth and half of the CHG soap in the bottle, lather your entire body from theneck down. Do not use CHG soap near your eyes or ears to avoid injury to those areas. Wash thoroughly, paying special attention to the area where your surgery will be performed. Wash your body gently for five (5) minutes. Avoid scrubbing your skin too hard. Turn the water back on and rinse your body thoroughly. Pat yourself dry with a clean, soft towel. Do not apply lotion, cream or powder. Dress with clean freshly washed clothes. The morning of surgery: Repeat shower following steps above - using remaining half of CHG soap in bottle. If you have any questions, call the Pre-Admission Testing Unit at [phone]. Day of Surgery/Procedure As a patient at [facility] you can expect quality medical and nursing care that is centered on your individual needs. Our goal is to make your surgical experience as comfortableas possible . Directions to the Surgery Center [facility] is located at [address] [place] [address]. Please pull into the Emergency parking lot and stop at the paradi operator arcos. We offer free paradi operator service for all our surgery patients, if you choose not to have paradi operator parking we have additional parking across the street.You will enter the facility following the [facility] sign. Please stop at the nurse receptionist desk where you will be checked in by the staff. If you have any questions please call [phone]. Transportation after your procedure. You will need a friend or family member to drive you home after your procedure. Your local intermodal truck driver must be18 years of age or older and able to sign off on your discharge instructions. Taxi cabs or any formof public transportation is not acceptable. It is preferable that the friend or family member stay at the hospital throughout your procedure. Someone must remain at home with you for the first 24 hours after your surgery if you receive anesthesia or sedation. If you do not have someone to stay with you, your procedure may be cancelled. Patient Instructions If you are having any type of anesthesia you are to have nothing to eat or drink after midnight thenight before your surgery. This includes gum, mints, water or smoking or chewing tobacco. The only exception to this is a small sip of water to take with any morning dose of heart, blood pressure, orseizure medications. Bring a list of all medications you take, along with the dose of the medications and how often you take it. If more convenient bring the pharmacy bottles in a zip lock bag. Please shower the night before and the morning of surgery with an antibacterial soap. Please use the wipes given to you the night before your surgery after your shower. Unless otherwise told by your physician, please do not shave legs or any part of your body below your neck the night before or dayof your surgery. You may shave your face or neck. [place] your teeth but do not swallow water. Bring your inhaler if you are currently using one. Bring your eyeglasses and case with you. No contacts are to be worn the day of surgery. You also may bring your hearing aids. Bring your blood band if one has been given to you. Please do not close the clasp. If you are on C-PAP or Bi-PAP at home and plan on staying in the hospital overnight for your surgery please bring the machine with you. Do not wear any jewelry or body piercings day of surgery. Also, NO lotion, perfume or deodorant to be used the day of surgery. Do not bring any valuables, such as jewelry, bhat or credit cards. If you are staying overnight with us, please bring a SMALL bag of personal items. We cannot accommodate large items, like suitcases. Please wear loose, comfortable clothing. If you are potentially going to have a cast or brace bringclothing that will fit over them. In case of illness If you have cold or flu like symptoms (high fever, runny nose, sore throat, cough, etc.) rash, nausea, vomiting, loose stools, and/or recent contact with someone who has a contagious disease (chicken pox, measles, etc.) Please call your doctor before coming to the hospital. If your child is having surgery please make arrangements for any other children to be cared for at home on the day of surgery. Other children are not permitted in recovery room and we want you to be able to spend time with the patient. If other arrangements are not available then we suggest that you have a second adult to stay in the waiting room. If you have any other questions regarding your procedure or the day of surgery, please call [phone], or [phone] documented in this [facility] Phone: 1([phone]) 129-542304-12-2021 History of Present illness Narrative* Mahesh Price, SUBACUTE NURSE - PRODUCT SAFETY TESTER - 12/24/2020 10:30 AM EDT Anesthesia Focused Assessment STOP-BANG Sleep Apnea Questionnaire Prior + Covid-19 test? No SNORE loudly (heard through closed doors)? No TIRED, fatigued, sleepy during daytime? No OBSERVED stopping breathing during sleep? No High blood PRESSURE or being treated? No BMI over 35? Yes AGE over 50? No NECK circumference over 16 ? No GENDER (male)? No Total 1 High risk 5-8 Intermediate risk 3-4 Low risk 0-2 AIDEN: no If yes, machine?: Type 1 DM: no T2DM: no Coronary Artery Disease: no Hypertension: no Defib / AICD / Pacemaker: no Renal Failure: no If yes, on dialysis?: Active smoker: No, quit 03/2020 Drinks Alcohol: rare Illicit drugs: no Dentition: Benign Past Medical History: Diagnosis Date Anxiety Arthritis knees and back Bipolar disorder (HCC) 11/25/[address]. Jacki Nicole for therapy Borderline personality disorder ([facility]) [facility], therapist Jacki Nicole Depression Flat feet, bilateral Foot pain, bilateral Dr. Octavio Sims, film recordist GERD (gastroesophageal reflux disease) managed by Dr. Harris Obesity Patient was evaluated in [facility] & anesthesia guidelines were applied. NPO guidelines, medication instructions and scheduled arrival time were reviewed with patient. Hx of anesthesia complications: No but reports extremely thirsty after Family hx of anesthesia complications: no Anesthesia contacted: no Medical or cardiac clearance ordered: PCP clearance pending, has appt this Thursday12/26/[address] Ames for this. Will request copy once available. MAHESH BLEVINS 12/24/20 11:38 AM documented in this [facility] Work Phone: evaluation + Plan note No data available for this section [facility] Primary [facility] Evaluation + Plan note Referrals to Other Providers Referred by: Aimee Walker CNP [facility] Evaluation + Plan note Future Appointments Appointment Date:04/04/2022 02:40:00 PM Scheduled Provider:Rahul Salinas DO [facility] Future Appointments Appointment Date:04/22/2022 09:15:00 AM Scheduled Provider: Location:.[facility] Appointment Type:MA Diagnostic (FT) Appointment Date:04/22/2022 10:00:00 AM Scheduled Provider: Location:.[facility] Appointment Type:US Breast (FT) Future Scheduled Tests Radiology* US Breast Unilateral Lt Complete 04/21/22 * US Breast Unilateral Rt Complete 04/21/22 * MA Mamm Diag w/CAD if perf and 3D [place] 04/22/22 * MA Mamm Screen w/CAD if perf and 3D [place] 04/21/22 [facility] Evaluation + Plan note Future Appointments Appointment Date:08/22/2022 10:20:00 AM Scheduled Provider:Rahul Salinas DO Location:[facility] Appointment Type: Hospital Follow Up w/TCM Future Scheduled Tests Laboratory* CBC w/ Auto Diff 07/21/22 Radiology* MA Mamm Screen w/CAD if perf and 3D [place] [facility]ments Appointment Date:11/03/2022 01:00:00 PM Scheduled Provider:Nakia Shah Location:[facility] Appointment Type:FM Open Future Scheduled Tests Laboratory* CBC w/ Auto Diff 07/21/22 Radiology* MA Mamm Screen w/CAD if perf and 3D [place] [facility] Future Appointments Appointment Date:01/02/2023 10:00:00 AM Scheduled Provider:Nakia Shah Location:[facility] Appointment Type:FM Open Future Scheduled Tests Laboratory* CBC w/ Auto Diff 07/21/22 Radiology* MA Mamm Screen w/CAD if perf and 3D [place] 04/21/22 [facility] Evaluation + Plan note Future Appointments Appointment Date:12/05/2022 09:00:00 AM Scheduled Provider: Location:[facility] Appointment Type:Surgery FT Appointment Date:01/02/2023 10:00:00 AM Scheduled Provider:Nakia Shah Location:[facility] Appointment Type:FM Open Future Scheduled Tests Laboratory* CBC w/ Auto Diff 07/21/22 Radiology* MA Mamm Screen w/CAD if perf and 3D [place] [facility] Diagnosis Preop testing- Primary Preoperative examination, unspecified documented in this encounter [employer] [facility] Phone: [email or web address] note* Diagnosis Post-op pain- Primary Other acute postoperative pain Status post gastric bypass for obesity Bariatric surgery status Morbid obesity with BMI of 40.0-44.9, adult (HCC) Hiatal hernia Diaphragmatic hernia without mention of obstruction or gangrene documented in this encounter [employer] [facility] Phone: [email or web address] note* Diagnosis Dehydration documented in this encounter [employer] [facility] [facility] Phone: [email or web address] note* Diagnosis Generalized abdominal pain- Primary Abdominal pain, generalized documented in this encounter [employer] Phone: [email or web address] note* Diagnosis Surgery, elective- Primary Unspecified elective surgery for purposes other than remedying health states Omental infarction (HCC) Acute vascular insufficiency of intestine Intra-abdominal abscess (HCC) Peritoneal abscess documented in this encounter [employer] Phone: [email or web address] note* Diagnosis Omental infarction (HCC) Acute vascular insufficiency of intestine documented in this encounter [employer] [facility] [facility] Phone: evaluation note* Diagnosis Hypertrophy of breast- Primary Upper back pain Excess skin documented in this encounter [facility] note* Diagnosis Burning tongue- Primary Glossodynia Irritation of oral cavity Other and unspecified diseases of the oral soft tissues documented in this encounter [facility] note* Diagnosis Onset Date Resolution Status Bipolar 1 disorder acute Blurry vision acute Borderline personality disorder acute Headache acute MDD (major depressive disorder) acute Palpitation acute [facility] Work Phone: Evaluation note* Diagnosis Idiopathic intracranial hypertension- Primary Benign intracranial hypertension Depression, unspecified depression type Primary hypertension Unspecified essential hypertension Hx of gastric bypass Bariatric surgery status H/O foot surgery Personal history of surgery to other organs documented in this encounter [facility] noteNo assessment information [facility] Work Phone: Evaluation noteNo InformationNort oragenics Other Hismzrq general Narrative - Reported* Type Description Date Medical History plantar fasciitis Medical History migraine headache Medical History borderline personality disorder Medical History chronic depression Medical History bipolar Surgical History C section Surgical History c section Surgical History tubal ligation Surgical History HYSTERECTOMY Surgical History oral surgery Surgical History gastric bypass Hospitalization History mental health issues [facility] Other Hisltur general Narrative - Reported* Type Description Date Medical History plantar fasciitis Medical History migraine headache Medical History borderline personality disorder Medical History chronic depression Medical History bipolar Surgical History C section Surgical History c section Surgical History tubal ligation Surgical History HYSTERECTOMY Surgical History oral surgery Surgical History gastric bypass Hospitalization History mental health issues Hospitalization History [facility] [place] - hysterectomy 11/13 023 [facility] Other Hospital Discharge instructions No data available for this section [facility] Progress note No data available for this section [facility] Assessments Diagnosis Preoperative testing Preoperative examination, unspecified Diagnosis Gastroesophageal reflux disease with esophagitis without hemorrhage Advance Directives No Advanced Directives Records FoundDocuments on File Type Date Recorded 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 ACP-Advance Directive ACP-Power of Mortgage Loan Processor Documents on File Type Date Recorded 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 ACP-Advance Directive ACP-Power of Mortgage Loan Processor Latest Code Status on File Code Status Date Activated Date Inactivated Comments Full Code 01/07/2021 12:20 PM Latest Code Status on File Code Status Date Activated Date Inactivated Comments Full Code 01/07/2021 12:20 PM 01/08/2021 8:31 PM Latest Code Status on File Code Status Date Activated Date Inactivated Comments Full Code 01/31/2021 11:30 PM Full Code 01/07/2021 12:20 PM 01/08/2021 8:31 PM Latest Code Status on File Code Status Date Activated Date Inactivated Comments Full Code 01/31/2021 11:30 PM 02/01/2021 12:23 PM Full Code 01/07/2021 12:20 PM 01/08/2021 8:31 PM Advance Directive Response Recorded Date/ Time Advance Directives No January 08, 2 019 6:21pm Advance Directive Response Recorded Date/ Time Advance Directives No January 08, 019 7:21pm Latest Code Status on File Code Status Date Activated Date Inactivated Comments Full Code 01/31/2021 11:30 PM 02/01/2021 12:23 PM Code Status History Code Status Date Activated Date Inactivated Comments Full Code 01/07/2021 12:20 PM 01/08/2021 8:31 PM Summary Purpose Family History No Family History Records Found Relationship Condition Age at Onset Recorded Date/T ankit Not Specified Malignant neoplasm of pancreas Unknown father Amyotrophic lateral sclerosis Unknown Relationship Condition Age at Onset Recorded Date/T ankit Not Specified Malignant neoplasm of pancreas Unknown father Amyotrophic lateral sclerosis Unknown grandparent Malignant neoplasm of pancreas Unknown family member Malignant neoplasm of pancreas Unknown Discharge Instructions * Instructions* Yoli Hardy, - 09/28/2020 POST-ENDOSCOPY INSTRUCTIONS 1. ACTIVITY No driving, operating machinery, or making important decisions for 24 hours. Resume normal activity after 24 hours. You may return to work after 24 hours. 2. DIET EGD: Resume your usual diet unless specified below. Diet Modification: Regular 3. MEDICATIONS (Do not consume alcohol, tranquilizers, or sleeping medications for 24 hours unless advised by your physician) Resume your usual medications 4. PHYSICIAN FOLLOW-UP Please continue with your previously scheduled appointments See your primary care physician as planned. 6. NORMAL CHANGES YOU MAY EXPERIENCE AFTER ENDOSCOPY: EGD: Sore throat, some abdominal pain and cramping. 7. CALL YOUR PHYSICIAN IF YOU EXPERIENCE ANY OF THE FOLLOWING A. Passing blood rectally or vomiting blood (color may be red or black) B. Severe abdominal pain or tenderness (that is not relieved by passing air) C. Fever, chills, or excessive sweating D. Persistent nausea or vomiting E. Redness or swelling at the IV site If you have additional questions, PLEASE call your doctor or the [facility] at documented in this encounter Reason for Referral Status Reason Specialty Diagnoses / Procedures Referre d By Contact Referred To Contact Closed Radiology Diagnoses Omental infarction (HCC) Procedures CT ABDOMEN PELVIS W IV CONTRAST Additional Contrast? Oral Gamaliel Harris, [address] [facility] [address] [place] [address] Specialty Diagnoses / Procedures Referred By Contac t Referred To Contact Ophthalmology Diagnoses Idiopathic intracranial hypertension Procedures CONSULT TO OPHTHALMOLOGY OFFICE/OUTPATIENT [facility] 60-74 MINUTES Eileen Manzano MD [address] [place] [address] Referral ID Status Reason Start Date Expiration Date Visits Requested Visits Authorized [id number] Authorized PCP Requested Referral 11/20/2022 11/20/2023 1 1 Specialty Diagnoses / Procedures Referred By Simona bailey Referred To Contact MR IMAGING Diagnoses Idiopathic intracranial hypertension Procedures MRV BRAIN WO/W IVCON MRA; HEAD W & WO CONTRAST Eileen Manzano MD [address] [address] Mr Imaging Referral ID Status Reason Start Date Expiration Date Visits Requested Visits Authorized [id number] Pending Review Auto-Generat ed Referral 11/20/2022 12/20/2023 1 1 Chief Complaint and Reason for Visit Chief Complaint Headache, R/O intrac ranial hypertension Reason for Visit Bipolar 1 disorder Blurry vision Borderline personality disorder Headache MDD (major depressive disorder) Palpitation Chief Complaint Headache, R/O intrac ranial hypertension Headache, R/O intracranial hypertension Reason for Visit Bipolar 1 disorder Blurry vision Borderline personality disorder Headache MDD (major depressive disorder) Palpitation Chief Complaint head pressure Chief Complaint head pressure abd pain n/v abd pain, nausea Additional Source Comments INFORMATION SOURCE (unrecogn ized section and content) DATE CREATED AUTHOR 10/06/2020 [facility] DATE CREATED AUTHOR AUTHOR'S ORGANIZ ATION 01/06/2021 [facility] DATE CREATED AUTHOR AUTHOR'S ORGANIZ ATION 08/16/2022 [facility] DATE CREATED AUTHOR AUTHOR'S ORGANIZ ATION 11/15/2022 [facility] DATE CREATED AUTHOR AUTHOR'S ORGANIZ ATION 08/03/2023 [facility] DATE CREATED AUTHOR AUTHOR'S ORGANIZ ATION 08/17/2023 [facility] DATE CREATED AUTHOR AUTHOR'S ORGANIZ ATION 08/22/2023 [facility] DATE CREATED AUTHOR AUTHOR'S ORGANIZ ATION 09/04/2023 [facility] DATE CREATED AUTHOR AUTHOR'S ORGANIZ ATION 09/13/2023 [facility] DATE CREATED AUTHOR AUTHOR'S ORGANIZ ATION 09/16/2023 [facility] DATE CREATED AUTHOR AUTHOR'S ORGANIZ ATION 09/19/2023 [facility] Reason for Visit (unrecogniz ed section and content) Status Reason Specialty Diagnoses / Procedures Re ferred By Contact Referred To Contact Diagnoses GERD (gastroesophageal reflux disease) GERD/OBESITY Procedures NE ESOPHAGOGASTRODUODENOSCOPY TRANSORAL DIAGNOSTIC EGD ESOPHAGOGASTRODUODENOSCOPY Gamaliel Harris DO [address] [facility] [address] [place] [phone] [facility] Status Reason Specialty Diagnoses / Procedures Referre d By Contact Referred To Contact Closed Radiology Diagnoses Gastro-esophageal reflux disease with esophagitis, without bleeding Procedures CHG RADIOLOGIC EXAM UPR GI TRC SINGLE CONTRAST STUDY Gamaliel Harris DO [address] [facility] [address] [place] [address] [facility] Radiology [address] [place] [id number] Status Reason Specialty Diagnoses / Procedures Referre d By Contact Referred To Contact Diagnoses Morbid obesity (HCC) GERD (gastroesophageal reflux disease) MORBID OBESITY, GERD Procedures NE LAP GASTRIC BYPASS/TIAN-EN-Y XI LAPAROSCOPIC ROBOTIC GASTRIC BYPASS TIAN-EN-Y, LIVER BIOPSY, EGD- GI UNIT SCHEDULED. Gamaliel Harris DO [address] [facility] [address] [place] [phone] [facility] Reason Comments Abdominal Pain Diffuse cramping and bloating. Onset 2 days ago. Pt reports she is 3.5weeks post Gastric bypass. Last BM this AM Reason Comments Abdominal Pain possible abscess Status Reason Specialty Diagnoses / Procedures Referre d By Contact Referred To Contact Diagnoses Intra-abdominal abscess (HCC) Omental infarction (HCC) Gamaliel Harris DO [address] [facility] [address] [place] [phone] [facility] Status Reason Specialty Diagnoses / Procedures Referre d By Contact Referred To Contact Closed Radiology Diagnoses Omental infarction (HCC) Procedures CT ABDOMEN PELVIS W IV CONTRAST Additional Contrast? Oral Gamaliel Harris DO [address] [facility] [address] [place] [address] Reason Comments Orders Reason Comments Patient Question Appointment Reason Comments Mouth Sores blood in the back of throat Reason Comments Scheduling Reason Comments Appointment Reason Comments Headache Reason Comments Refill Request Specialty Diagnoses / Procedures Referred By Contac t Referred To Contact Diagnoses Gastroesophageal reflux disease, unspecified whether esophagitis present Obesity (BMI 30-39.9) Gastroesophageal reflux disease, unspecified whether esophagitis present [K21.9] Obesity (BMI 30-39.9) [E66.9] Procedures NE EGD TRANSORAL BIOPSY SINGLE/MULTIPLE NE ESOPHAGOGASTRODUODENOSCOPY TRANSORAL DIAGNOSTIC NE EGD BALLOON DILATION ESOPHAGUS <30 MM DIAM EGD BIOPSY Gamaliel Harris DO [address] [facility] [address] [place] [address] [facility] [address] [place] [address] Referral ID Status Reason Start Date Expiration Date Visits Re quested Visits Authorized [id number] 1 1 Ordered Prescriptions (unrec ognized section and content) Prescription Sig Dispensed Refills Start Date End Da te pantoprazole (PROTONIX) 40 MG tablet Take 1 tablet by mouth daily 180 tablet 0 01/08/2021 07/07/2021 promethazine (PHENERGAN) 25 MG tablet Take 1 tablet by mouth every 6 hours as needed for Nausea 80 tablet 0 01/08/2021 01/28/2021 oxyCODONE-acetaminophen (PERCOCET) 5-325 MG per tabletIndications:Post- op pain Take 1 tablet by mouth every 6 hours as needed for Pain for up to 7 days. Intended supply: 7 days. Take lowest dose possible to manage pain 28 tablet 0 01/08/2021 01/15/2021 Prescription Sig Dispensed Refills Start Date End Da te oxyCODONE-acetaminophen (PERCOCET) 5-325 MG per tabletIndications:Omenta l infarction (HCC),Surgery, elective Take 1 tablet by mouth every 6 hours as needed for Pain for up to 5 days. Intended supply: 7 days. Take lowest dose possible to manage pain 20 tablet 0 02/01/2021 02/06/2021 amoxicillin-clavulanate (AUGMENTIN) 875-125 MG per tablet Take 1 tablet by mouth 2 times daily for 10 days 20 tablet 0 02/01/2021 02/11/2021 Scheduled Active and Recently Administ ered Medications (unrecognized section and content) Medication Order 01/24/2021 01/25/2021 01/26/2021 0.9 % sodium chloride bolus (COMPLETED) 1,000 mL (8.71 mL/kg), Intravenous, at 1,000 mL/hr, Administer over 1 Hours, ONCE, On 01/26/21 at 0915, For 1 dose 1028 (New Bag - Prov ider: Jasmine Burch RN)1129 (Stopped - Provider: Jasmine Burch RN) 0.9 % sodium chloride bolus (COMPLETED) 1,000 mL (8.71 mL/kg), Intravenous, at 250 mL/hr, Administer over 4 Hours, ONCE, On 01/26/21 at 0915, For 1 dose 1131 (New Bag - Prov ider: Jasmine Burch RN)1345 (Stopped - Provider: Jasmine Burch RN) Scheduled Medication Order 01/28/2021 01/29/2021 01/30/2021 morphine (PF) injection 2 mg (COMPLETED) 2 mg, Intravenous, ONCE, On Thu01/30/21 at 1015, For 1 dose, If oral and IV narcotics ordered, use oral first and only use IV if oral is ineffective or cannot take oral. Do Not give oral and IV within 1 hour of each other unless specifically ordered. 1045 (Given - Provid er: Judy Reeder RN) morphine (PF) injection 2 mg (COMPLETED) 2 mg, Intravenous, ONCE, On Thu01/30/21 at 1245, For 1 dose, If oral and IV narcotics ordered, use oral first and only use IV if oral is ineffective or cannot take oral. Do Not give oral and IV within 1 hour of each other unless specifically ordered. 1307 (Given - Provid er: Yanelis Martínez RN) morphine (PF) injection 2 mg (COMPLETED) 2 mg, Intravenous, ONCE, On Thu01/30/21 at 1315, For 1 dose, If oral and IV narcotics ordered, use oral first and only use IV if oral is ineffective or cannot take oral. Do Not give oral and IV within 1 hour of each other unless specifically ordered. 1312 (Held - Provide r: Yanelis Martínez RN - Reason: Other - Comment: pt declines pain meds at this time)1436 (Given - Provider: Yanelis Martínez RN) ondansetron (ZOFRAN) injection 4 mg (COMPLETED) 4 mg, Intravenous, ONCE, On Thu01/30/21 at 1015, For 1 dose 1044 (Given - Provid er: Judy Reeder RN) piperacillin-tazobactam (ZOSYN) 3,375 mg in dextrose 5 % 50 mL IVPB (mini-bag) (COMPLETED) 3,375 mg, Intravenous, ONCE, 1 dose, On Thu01/30/21 at 1415 1426 (New Bag - Prov ider: Yanelis Martínez RN)1500 (Stopped - Provider: Yanelis Martínez RN) Continuous Medication Order 01/28/2021 01/29/202101/3001/30/2021 0.9 % sodium chloride infusion 1,000 mL, Intravenous, at 125 mL/hr, Administer over 8 Hours, CONTINUOUS, Starting on Thu01/30/21 at 1015 1043 (New Bag - Prov ider: Judy Reeder, RN)1515 (Patient Transferred to Other Facility - Provider: Judy Reeder, RN) PRN Medication Order 01/28/2021 01/29/2021 01/30/2021 iopamidol (ISOVUE-370) 76 % injection 18 mL (COMPLETED) 18 mL, Other, IMG ONCE PRN, Other, Starting on Thu01/30/21 at 1137, For 1 dose 1142 (Given - Provid er: [facility]) iopamidol (ISOVUE-370) 76 % injection 75 mL (COMPLETED) 75 mL, Intravenous, IMG ONCE PRN, Other, Starting on Thu01/30/21 at 1137, For 1 dose 1142 (Given - Provid er: [facility]) Scheduled Medication Order 01/30/2021 01/31/2021 02/01/2021 0.9 % sodium chloride bolus (COMPLETED) 1,000 mL (8.96 mL/kg), Intravenous, at 1,000 mL/hr, Administer over 1 Hours, ONCE, On Thu01/30/21 at 1715, For 1 dose 1708 (New Bag - Provider: Annita Guevara, RN)1901 (Stopped - Provider: Annita Guevara, RN) enoxaparin (LOVENOX) injection 40 mg 40 mg, Subcutaneous, EVERY 12 HOURS SCHEDULED (2 times per day), First dose on Thu01/30/21 at 2200 2315 (Held - Provider: Heather Palacios, RN - Reason: Patient/family refused) 0938 (Given - Provider: Wei Carter, MARCO)2100 (Due) 0831 (Given - Provider: Bonnie Ruiz, MARCO)2100 (Due) fentaNYL (SUBLIMAZE) injection 50 mcg (COMPLETED) 50 mcg, Intravenous, ONCE, On Thu01/30/21 at 1715, For 1 dose, If oral and IV narcotics ordered, use oral first and only use IV if oral is ineffective or cannot take oral. Do Not give oral and IV within 1 hour of each other unless specifically ordered. 1707 (Given - Provider: Annita Gueavra RN) fentaNYL (SUBLIMAZE) injection 50 mcg (COMPLETED) 50 mcg, Intravenous, ONCE, On Thu01/30/21 at 2000, For 1 dose, If oral and IV narcotics ordered, use oral first and only use IV if oral is ineffective or cannot take oral. Do Not give oral and IV within 1 hour of each other unless specifically ordered. 2004 (Given - Provider: Jacob Mane RN) piperacillin-tazobactam (ZOSYN) 3,375 mg in dextrose 5 % 50 mL IVPB (mini-bag) 3,375 mg, Intravenous, EVERY 8 HOURS, First dose (after last reorder) on Thu01/30/21 at 2115, Until Discontinued 2246 (New Bag - Provider: Jacob Mane RN) 0336 (Stopped - Provider: Heather Palacios RN)0635 (New Bag - Provider: Heather Palacios RN)0940 (Stopped - Provider: Wei Carter RN)1257 (New Bag - Provider: Wei Carter RN)1632 (Stopped - Provider: Wei Carter RN)2032 (New Bag - Provider: Rita Klein RN) 0030 (Stopped - Provider: Rita Klein, MARCO)0559 (New Bag - Provider: Rita Klein RN)0959 (Due: Stopped - Provider: Rita Klein RN)1315 (Due)2115 (Due) sodium chloride flush 0.9 % injection 5-40 mL 5-40 mL, Intravenous, EVERY 12 HOURS SCHEDULED (2 times per day), First dose on Thu02/01/21 at 0900, For Line Patency: Peripheral IV = 5 mL; Midline or Central Line = 10 mL/lumen. If following IV push medication, administer flush at same rate as the IV push. Flush volume is determined by type of infusion therapy being given. For non-viscous solutions use: Peripheral IV = 5 mL Midline or Central Line = 10 mL/lumen For viscous solutions (i.e. blood components, parenteral nutrition, contrast media, or after obtaining blood sample) use: Peripheral IV = 10 mL Midline or Central Line = 20 mL/lumen 0906 (Not Given - Provider: Bonnie Ruiz RN - Reason: IV Fluid Infusing)2100 (Due) PRN Medication Order 01/30/2021 01/31/2021 02/01/2021 0.9 % sodium chloride infusion 25 mL, Intravenous, at 100 mL/hr, PRN, If patient receiving piggyback infusions without ordered maintenance IV fluids or with frequent/long duration piggyback infusions, Starting on Thu01/30/21 at 2157, Administer at the same rate as the piggyback being infused. cyclobenzaprine (FLEXERIL) tablet 10 mg 10 mg, Oral, 3 TIMES DAILY PRN, Muscle spasms, Starting on Thu01/30/21 at 2157 0939 (Given - Provider: Wei Carter RN)1424 (Given - Provider: Wei Carter RN)1921 (Given - Provider: Rita Klein RN) 0404 (Given - Provider: Rita Klein RN) oxyCODONE-acetaminophen (PERCOCET) 5-325 MG per tablet 1 tablet 1 tablet, Oral, EVERY 4 HOURS PRN, Pain Severe (7-10), Starting on Thu01/30/21 at 2157, Maximum dose of acetaminophen is 4000 mg from all sources in 24 hours. 2251 (Given - Provider: Jacob Mane RN) 0451 (Given - Provider: Heather Palacios RN)0939 (Given - Provider: Wei Carter RN)1424 (Given - Provider: Wei Carter RN)1921 (Given - Provider: Rita Klein, MARCO) 0404 (Given - Provider: Rita Klein, MARCO)0832 (Given - Provider: Bonnie Ruiz RN) promethazine (PHENERGAN) injection 12.5 mg 12.5 mg, Intravenous, EVERY 6 HOURS PRN, Nausea, Vomiting, Starting on Thu01/30/21 at 2157, Recommended route is IM. For IV administration, dilute to 10ml with normal saline. Must be administered over at least 10 minutes. sodium chloride flush 0.9 % injection 5-40 mL 5-40 mL, Intravenous, PRN, Line Care, After every IV line use, Starting on Bettye 01/31/21 at 2330, For Line Patency: Peripheral IV = 5 mL; Midline or Central Line = 10 mL/lumen. If following IV push medication, administer flush at same rate as the IV push. Flush volume is determined by type of infusion therapy being given. For non-viscous solutions use: Peripheral IV = 5 mL Midline or Central Line = 10 mL/lumen For viscous solutions (i.e. blood components, parenteral nutrition, contrast media, or after obtaining blood sample) use: Peripheral IV = 10 mL Midline or Central Line = 20 mL/lumen Scheduled Medication Order 09/16/2023 09/17/2023 09/18/2023 meperidine (DEMEROL) injection 12.5 mg 12.5 mg, IntraVENous, ONCE, 1 dose, On Thu09/18/23 at 0845, May give every 5 minutes to max of 50mg., PACU only 0845 (Due) sodium chloride flush 0.9 % injection 5-40 mL 5-40 mL, IntraVENous, EVERY 12 HOURS SCHEDULED (2 times per day), First dose on Thu09/18/23 at 0900, Until Discontinued, For Line Patency: Peripheral IV = 5 mL; Midline or Central Line = 10 mL/lumen. If following IV push medication, administer flush at same rate as the IV push. Flush volume is determined by type of infusion therapy being given. For non-viscous solutions use: Peripheral IV = 5 mL Midline or Central Line = 10 mL/lumen For viscous solutions (i.e. blood components, parenteral nutrition, contrast media, or after obtaining blood sample) use: Peripheral IV = 10 mL Midline or Central Line = 20 mL/lumen, Pre-op (day of surgery) 0900 (Due)2099 (Due) sodium chloride flush 0.9 % injection 5-40 mL 5-40 mL, IntraVENous, EVERY 12 HOURS SCHEDULED (2 times per day), First dose on Thu09/18/23 at 0900, Until Discontinued, For Line Patency: Peripheral IV = 5 mL; Midline or Central Line = 10 mL/lumen. If following IV push medication, administer flush at same rate as the IV push. Flush volume is determined by type of infusion therapy being given. For non-viscous solutions use: Peripheral IV = 5 mL Midline or Central Line = 10 mL/lumen For viscous solutions (i.e. blood components, parenteral nutrition, contrast media, or after obtaining blood sample) use: Peripheral IV = 10 mL Midline or Central Line = 20 mL/lumen, PACU only 0900 (Due)2099 (Due) Continuous Medication Order 09/16/2023 09/17/2023 09/18/2023 lactated ringers IV soln infusion IntraVENous, at 125 mL/hr, CONTINUOUS, Starting on Thu09/18/23 at 0745, Pre-op (day of surgery) 0736 (New Bag - Prov ider: Annita Lezama APRN - RAJESH)0814 (NoRateChange - Provider: CEDRIC Hood CRNA)0823 (Anesthesia Volume Adjustment - Provider: CEDRIC Hood CRNA) PRN Medication Order 09/16/2023 09/17/2023 09/18/2023 0.9 % sodium chloride infusion IntraVENous, at 5-250 mL/hr, PRN, if patient receiving piggyback infusions and maintenance fluids are not ordered OR KVO fluids to protect IV site / prevent frequent line interruptions/ long duration, Starting on Thu09/18/23 at 0719, For piggyback infusion, administer at same rate as piggyback for a total of 25 mL. Enter 25 mL into dose field and piggyback rate into rate field of order. If piggyback is infusing at a rate less than 100 mL/hr, enter 25 mL into dose field and 100 mL/hr into rate field of order. For KVO fluids, enter rate of 20 mL/hr or less into rate field of order., Pre-op (day of surgery) 0.9 % sodium chloride infusion IntraVENous, at 100 mL/hr, PRN, If patient receiving piggyback infusions without ordered maintenance IV fluids or with frequent/long duration piggyback infusions, Starting on Thu09/18/23 at 0823, Administer at the same rate as the piggyback being infused., PACU only diphenhydrAMINE (BENADRYL) injection 12.5 mg 12.5 mg, IntraVENous, ONCE PRN, 1 dose, Starting on Thu09/18/23 at 0823, Until 09/19/23 at 0823, Itching, PACU only hydrALAZINE (APRESOLINE) injection 10 mg(Linked Group 1) 10 mg, IntraVENous, EVERY 15 MIN PRN, 2 doses, Starting on Thu09/18/23 at 0823, Until Discontinued, High Blood Pressure, for SBP greater than 180 mmHg for 2 consecutive measurements taken from different sites, If heart rate is greater than 60 bpm, hold hydralazine and use labetalol if ordered, otherwise contact provider. Inform provider if SBP is still greater than 180 mmHg 10 minutes after second antihypertensive dose is administered., PACU only HYDROmorphone (DILAUDID) injection 0.5 mg 0.5 mg, IntraVENous, EVERY 5 MIN PRN, 4 doses, Starting on Thu09/18/23 at 0823, Until Discontinued, Pain Severe (7-10), Phase I - Initial therapy for severe pain., PACU only labetalol (NORMODYNE;TRANDATE) injection 10 mg(Linked Group 1) 10 mg, IntraVENous, EVERY 15 MIN PRN, 2 doses, Starting on Thu09/18/23 at 0823, Until Discontinued, High Blood Pressure, for SBP greater than 180 mmHg for 2 consecutive measurements taken from different sites., If heart rate is 60 bpm or less hold labetalol and use hydralazine if ordered, otherwise contact provider. Inform provider if SBP is still greater than 180 mmHg, 10 minutes after second antihypertensive dose is administered., PACU only metoclopramide (REGLAN) injection 10 mg 10 mg, IntraVENous, ONCE PRN, 1 dose, Starting on Thu09/18/23 at 0823, Until 09/19/23 at 0823, Nausea, Secondary antiemetic therapy., PACU only midazolam PF (VERSED) injection 2 mg 2 mg, IntraVENous, ONCE PRN, 1 dose, Starting on Thu09/18/23 at 0823, Until 09/19/23 at 0823, Anxiety, PACU only morphine (PF) injection 1 mg 1 mg, IntraVENous, EVERY 5 MIN PRN, 4 doses, Starting on Thu09/18/23 at 0823, Until Discontinued, Pain Moderate (4-6), Phase I - Initial therapy for moderate pain., PACU only ondansetron (ZOFRAN) injection 4 mg 4 mg, IntraVENous, ONCE PRN, 1 dose, Starting on Thu09/18/23 at 0823, Until 09/19/23 at 0823, Nausea, Initial antiemetic therapy., PACU only oxyCODONE (ROXICODONE) immediate release tablet 10 mg(Linked Group 2) 10 mg, Oral, PRN, 1 dose, Starting on Thu09/18/23 at 0823, Until Thu09/18/23 at 2359, Pain Severe (7-10), PHASE II, PACU only oxyCODONE (ROXICODONE) immediate release tablet 5 mg(Linked Group 2) 5 mg, Oral, PRN, 1 dose, Starting on Thu09/18/23 at 0823, Until Thu09/18/23 at 2359, Pain Moderate (4-6), PHASE II, PACU only sodium chloride flush 0.9 % injection 5-40 mL 5-40 mL, IntraVENous, PRN, Starting on Thu09/18/23 at 0719, Until Discontinued, Line Care, After every IV line use, For Line Patency: Peripheral IV = 5 mL; Midline or Central Line = 10 mL/lumen. If following IV push medication, administer flush at same rate as the IV push. Flush volume is determined by type of infusion therapy being given. For non-viscous solutions use: Peripheral IV = 5 mL Midline or Central Line = 10 mL/lumen For viscous solutions (i.e. blood components, parenteral nutrition, contrast media, or after obtaining blood sample) use: Peripheral IV = 10 mL Midline or Central Line = 20 mL/lumen, Pre-op (day of surgery) sodium chloride flush 0.9 % injection 5-40 mL 5-40 mL, IntraVENous, PRN, Starting on Thu09/18/23 at 0823, Until Discontinued, Line Care, After every IV line use, For Line Patency: Peripheral IV = 5 mL; Midline or Central Line = 10 mL/lumen. If following IV push medication, administer flush at same rate as the IV push. Flush volume is determined by type of infusion therapy being given. For non-viscous solutions use: Peripheral IV = 5 mL Midline or Central Line = 10 mL/lumen For viscous solutions (i.e. blood components, parenteral nutrition, contrast media, or after obtaining blood sample) use: Peripheral IV = 10 mL Midline or Central Line = 20 mL/lumen, PACU only Linked Groups Order Group 1: labetalol (NORMODYNE;TRANDATE) injection 10 mgJump to med 10 mg, IntraVENous, EVERY 15 MIN PRN, 2 doses, Starting on Thu09/18/23 at 0823, Until Discontinued, High Blood Pressure, for SBP greater than 180 mmHg for 2 consecutive measurements taken from different sites.
If heart rate is 60 bpm or less hold labetalol and use hydralazine if ordered, otherwise contact provider. Inform provider if SBP is still greater than 180 mmHg, 10 minutes after second antihypertensive dose is administered.
PACU only Or hydrALAZINE (APRESOLINE) injection 10 mgJump to med 10 mg, IntraVENous, EVERY 15 MIN PRN, 2 doses, Starting on Thu09/18/23 at 0823, Until Discontinued, High Blood Pressure, for SBP greater than 180 mmHg for 2 consecutive measurements taken from different sites
If heart rate is greater than 60 bpm, hold hydralazine and use labetalol if ordered, otherwise contact provider. Inform provider if SBP is still greater than 180 mmHg 10 minutes after second antihypertensive dose is administered.
PACU only Group 2: oxyCODONE (ROXICODONE) immediate release tablet 5 mgJump to med 5 mg, Oral, PRN, 1 dose, Starting on Thu09/18/23 at 0823, Until Thu09/18/23 at 2359, Pain Moderate (4-6)
PHASE II
PACU only Or oxyCODONE (ROXICODONE) immediate release tablet 10 mgJump to med 10 mg, Oral, PRN, 1 dose, Starting on Thu09/18/23 at 0823, Until Thu09/18/23 at 2359, Pain Severe (7-10)
PHASE II
PACU only Source Comments (unrecognize d section and content) In the event this informatio n is protected by the Federal Confidentiality of Alcohol and Drug Abuse Patient Records regulations: The Federal rules restrict any use of the information to criminally investigate or prosecute any alcohol or drug abuse patient.[facility] the event this information is protected by the Federal Confidentiality of Alcohol and Drug Abuse Patient Records regulations: The Federal rules restrict any use of the information to criminally investigate or prosecute any alcohol or drug abuse patient.[facility] the event this information is protected by the Federal Confidentiality of Alcohol and Drug Abuse Patient Records regulations: The Federal rules restrict any use of the information to criminally investigate or prosecute any alcohol or drug abuse patient.[facility] the event this information is protected by the Federal Confidentiality of Alcohol and Drug Abuse Patient Records regulations: The Federal rules restrict any use of the information to criminally investigate or prosecute any alcohol or drug abuse patient.[facility] the event this information is protected by the Federal Confidentiality of Alcohol and Drug Abuse Patient Records regulations: The Federal rules restrict any use of the information to criminally investigate or prosecute any alcohol or drug abuse patient.[facility] the event this information is protected by the Federal Confidentiality of Alcohol and Drug Abuse Patient Records regulations: The Federal rules restrict any use of the information to criminally investigate or prosecute any alcohol or drug abuse patient.[facility] the event this information is protected by the Federal Confidentiality of Alcohol and Drug Abuse Patient Records regulations: The Federal rules restrict any use of the information to criminally investigate or prosecute any alcohol or drug abuse patient.[facility] the event this information is protected by the Federal Confidentiality of Alcohol and Drug Abuse Patient Records regulations: The Federal rules restrict any use of the information to criminally investigate or prosecute any alcohol or drug abuse patient.[facility] the event this information is protected by the Federal Confidentiality of Alcohol and Drug Abuse Patient Records regulations: The Federal rules restrict any use of the information to criminally investigate or prosecute any alcohol or drug abuse patient.[facility] Care Team (unrecognized sect ion and content) Team Status: Inactive Member Role Status Dates Jennie Ames , DO Primary Care Provider Active Sangeetha Peña MD Admit Provider Active Lindy Hdz Other Provider Active Krystal Romo , DO Other Provider Active Carolyne Schilling MD Other Provider Active Jamie Larsen , DO Other Provider Active Dorita Niño , ANP-BC Other Provider Active Kenrick Lee , DO Other Provider Active Shasta Zaragoza APRN Other Provider Active Danielle Smith NP-C Other Provider Active Lizzeth Malave MD Attending Provider Active Team Status: Active Member Role Status Dates Jennie Ames , DO Primary Care Provider Active Team Status: Inactive Member Role Status Dates Jennie Ames , DO Primary Care Provider Active Sangeetha Peña MD Admit Provider Active Lindy Hdz Other Provider Active Krystal Romo , DO Other Provider Active Carolyne Schilling MD Other Provider Active Jamie Larsen , DO Referring Provider, Other Pr ovider Active Dorita Niño , ANP-BC Other Provider Active Kenrick Lee , DO Other Provider Active Shasta Zaragoza APRN Other Provider Active Danielle Smith NP-C Other Provider Active Lizzeth Malave MD Attending Provider Active Team Status: Inactive Member Role Status Dates Jennie Ames , DO Primary Care Provider Active Dorita Niño , ANP-BC Attending Provider Active Team Status: Inactive Member Role Status Dates Jennie Ames , DO Primary Care Provider Active Jose Maria Nair , DO Emergency Provider Active Team Status: Inactive Member Role Status Dates Jennie Ames , DO Primary Care Provider Active Yoli Norris MD Emergency Provider Active [employer] Layer Relationship Specialty Start Date End Date Jennie Ames DO [place] [address] PCP - General Family Medicine 11/19/22 Goals (unrecognized section and content) Goals may be documented in a n alternate section FOR RECORDS PERTAINING TO PATIENTS WHO ARE OR HAVE BEEN ENROLLED IN A CHEMICAL DEPENDENCY/SUBSTANCEABUSE PROGRAM, SOME INFORMATION MAY BE OMITTED. This clinical summary was aggregated from multiple sources. Caution should be exercised in using it in the provision of clinical care. This summary normalizes information from multiple sources, and as a consequence, information in this document may materially change the coding, format and clinical context of patient data. In addition, data may be omitted in some cases. CLINICAL DECISIONS SHOULD BE BASED ON THE PRIMARY CLINICAL RECORDS. [employer] [facility]. provides no warranty or guarantee of the accuracy or completeness of information in this document.
[2023-10-07 16:28] LABS: Basophils Absolute Auto 0.1 10^3/uL (0.0-0.1); Basophils Percent Auto 0.7 % (0.2-2.0); Eosinophils Absolute Auto 0.2 10^3/uL (0.0-0.7); Eosinophils Percent Auto 1.9 % (0.9-7.0); Hematocrit 36.4 % (36.0-48.0); Hemoglobin 11.3 g/dL (12.0-16.0); Immature Granulocytes Abs Auto 0.04 10^3/uL (0.00-0.03); Immature Granulocytes Pct Auto 0.4 % (0.0-0.5); Lymphocytes Absolute Auto 2.6 10^3/uL (1.2-3.8); Lymphocytes Percent Auto 23.8 % (20.5-60.0); Mean Corpuscular Hemoglobin 29.1 pg (26.7-34.0); Mean Corpuscular Volume 93.8 fL (81.0-99.0); Monocytes Absolute Auto 0.8 10^3/uL (0.3-0.8); Neutrophils Absolute Auto 7.2 10^3/uL (1.4-6.5); Neutrophils Percent Auto 66.2 % (43.0-75.0); Platelet Count 438 10^3/uL (150-450); Red Blood Count 3.88 10^6/uL (4.20-5.40); Red Cell Distribution Width 15.9 % (11.0-15.0); White Blood Count 10.9 10^3/uL (4.0-11.0)
--- NOTE | 2023-10-07 16:30 | ED.CHESTPAI1 ---
HPI - Chest Pain General Chief Complaint: Chest Pain Stated Complaint: CHEST PAIN/ SHORTNESS OF BREATH Time Seen by Provider: 10/07/23 15:47 History of Present Illness HPI narrative: The patient presented to us with 2 to 3 days history of compressing chest pressure associated with tachycardia. She also mentions some dizziness no nausea or vomiting . The patient also denies any diarrhea she mentioned that she was trying to detox at home alcohol her last intake was 5 days ago. Chest pain is retrosternal pressure-like . The patient mentioned that for the last few days she has been spending her time at the bed Related Data Home Medications Medication Instructions Recorded Confirmed cholecalciferol (vitamin D3) 125 5,000 unit PO .COMPLEX 06/10/23 07/10/23 mcg (5,000 unit) capsule duloxetine 60 mg capsule,delayed 60 mg PO DAILY 06/10/23 07/10/23 release hydroxyzine pamoate 25 mg capsule 25 mg PO PRN 06/10/23 07/10/23 acetazolamide 250 mg tablet 250 mg PO Q12H 07/10/23 07/10/23 albuterol sulfate 90 mcg/actuation 2 puff inhalation Q6H PRN 07/10/23 07/10/23 aerosol inhaler shortness of breath or wheezing brexpiprazole 4 mg tablet (Rexulti) 4 mg PO DAILY 07/10/23 07/10/23 methylprednisolone 4 mg tablets in mg 07/10/23 a dose pack Previous Rx's Medication Instructions Recorded benzonatate 100 mg capsule 200 mg (2 x 100 mg) PO TID PRN 07/10/23 cough #20 caps gesipqhqgyomwjl-lrtbsiolzihyanl-KX 10 ml PO Q6H PRN cold symptoms 07/10/23 2 mg-30 mg-10 mg/5 mL oral syrup #200 mL (Bromfed DM) ondansetron 4 mg disintegrating 4 mg PO Q6H PRN nausea/vomiting 08/14/23 tablet #20 tabs Allergies Allergy/AdvReac Type Severity Reaction Status Date / Time aripiprazole [From Abilify] Allergy Unknown Verified 07/10/23 10:33 COCONUT Allergy Uncoded 10/07/23 15:43 Review of Systems ROS Status of ROS 10 or more systems reviewed and unremarkable except as noted in history and below PFSH PFSH Social History Smoking status: Current every day smoker Exam Narrative Exam Narrative: Nurses notes and vital signs reviewed and patient is not hypoxic. General: Well-appearing and in no apparent distress. Skin: Warm, dry, no pallor noted. No rash. Head: Normocephalic, atraumatic. Neck: Supple, non-tender. Eye: Pupils are equal, round and EOMI. No scleral icterus. Ears, Nose, Mouth, and Throat: TM are clear, no nasal mucosal hypertrophy. Oral mucosa is moist, no posterior oropharynx erythema, uvula is mid-line Cardiovascular: Regular Rate and Rhythm without murmur, gallop or rub. Respiratory: No accessory muscle use or respiratory distress. Lungs are clear to auscultation, no wheezing, rales or rhonchi Chest Wall: no tenderness Back: No midline thoracic or lumbar vertebral tenderness. No CVA tenderness Musculoskeletal: normal ROM, no calf or popliteal tenderness, no lower extremity edema/swelling GI: Abdomen is soft, non-distended. Normal bowel sounds. No masses appreciated. No tenderness to palpation. No rebound, guarding, or rigidity noted. Neurological: A&O x4. No cranial nerve dysfunction observed. No truncal ataxia. Moves all extremities. Sensation intact. Psychiatric: Cooperative and interactive. Normal mood and affect. Constitutional Vital Signs, click to edit/add: Last Vital Signs Temp 98.6 F 10/07/23 15:39 Pulse 112 H 10/07/23 15:39 Resp 18 10/07/23 15:39 BP 122/82 10/07/23 15:39 Pulse Ox 99 10/07/23 15:39 O2 Del Method Room Air 10/07/23 15:39 Course Vital Signs Vital signs: Vital Signs Temperature 98.6 F 10/07/23 15:39 Pulse Rate 112 H 10/07/23 15:39 Respiratory Rate 18 10/07/23 15:39 Blood Pressure 122/82 10/07/23 15:39 Pulse Oximetry 99 10/07/23 15:39 Oxygen Delivery Method Room Air 10/07/23 15:39 Temperature 98.6 F 10/07/23 15:39 Pulse Rate 112 H 10/07/23 15:39 Respiratory Rate 18 10/07/23 15:39 Blood Pressure 122/82 10/07/23 15:39 Pulse Oximetry 99 10/07/23 15:39 Oxygen Delivery Method Room Air 10/07/23 15:39 MDM - Chest Pain MDM Narrative Medical decision making narrative: The patient EKG showing sinus tachycardia heart rate was [address] elevation or depression The patient CBC and chemistry showed no acute pathology and the heart rate responded to 1 L IV fluid after which she was not tachycardic The patient also provided with Tylenol and Pepcid in the ER Right now the patient to continue supportive care at home she is to follow-up with her primary care doctor as outpatient she also have a cardiac referral in case of recurring chest pain and specially with the patient history of alcohol abuse an echo might be needed The patient is to follow up with primary care physician in next 2-3 days or to return to the emergency department should any of the signs or symptoms worsen or new symptoms develop. The patient agrees with the following Diagnosis and Treatment plan and the patient will be discharged home. Lab Data Labs: Lab Results 10/07/23 Range/Units 16:10 WBC 10.9 (4.0-11.0) 10^3/uL RBC 3.88 L (4.20-5.40) 10^6/uL Hgb 11.3 L (12.0-16.0) g/dL Hct 36.4 (36.0-48.0) % MCV 93.8 (81.0-99.0) fL MCH 29.1 (26.7-34.0) pg MCHC 31.0 (29.9-35.2) g/dL RDW 15.9 H (11.0-15.0) % Plt Count 438 (150-450) 10^3/uL MPV 11.0 (9.5-13.5) fL Neut % (Auto) 66.2 (43.0-75.0) % Lymph % (Auto) 23.8 (20.5-60.0) % [place] % (Auto) 7.0 (1.7-12.0) % Eos % (Auto) 1.9 (0.9-7.0) % Baso % (Auto) 0.7 (0.2-2.0) % Neut # (Auto) 7.2 H (1.4-6.5) 10^3/uL Lymph # (Auto) 2.6 (1.2-3.8) 10^3/uL [place] # (Auto) 0.8 (0.3-0.8) 10^3/uL Eos # (Auto) 0.2 (0.0-0.7) 10^3/uL Baso # (Auto) 0.1 (0.0-0.1) 10^3/uL Abs Immat Gran (auto) 0.04 H (0.00-0.03) 10^3/uL Imm/Tot Granulo (auto) 0.4 (0.0-0.5) % D-Dimer 0.42 (<=0.59) mg/L FEU Sodium 139 (136-145) mmol/L Potassium 3.8 (3.5-5.1) mmol/L Chloride 105 (98-107) mmol/L Carbon Dioxide 22.6 (21.0-32.0) mmol/L Anion Gap 15.2 BUN 10.0 (7.0-18.0) mg/dL Creatinine 0.81 (0.55-1.02) mg/dL Est GFR ( Amer) >60 (>=60) Est GFR (Non-Af Amer) >60 (>=60) BUN/Creatinine Ratio 12.3 Glucose 79 (74-106) mg/dL Calcium 9.4 (8.5-10.1) mg/dL Magnesium 2.2 (1.8-2.4) mg/dL Total Bilirubin 0.2 (0.2-1.0) mg/dL AST 20 (15-37) U/L ALT 28 (14-59) U/L Alkaline Phosphatase 81 (46-116) U/L Troponin I High Sens 4.2 (4.0-51.3) pg/mL Total Protein 8.0 (6.4-8.2) g/dL Albumin 3.9 (3.4-5.0) g/dL Globulin 4.1 g/dL Albumin/Globulin Ratio 1.0 Serum HCG, Qual Negative (NEGATIVE) Ethanol Quant <3 mg/dL Discharge Plan Discharge Chief Complaint: Chest Pain Clinical Impression: Dehydration Chest pain Qualifiers: Chest pain type: unspecified Qualified Code(s): R07.9 - Chest pain, unspecified Patient Disposition: Home, Self-Care Time of Disposition Decision: 17:28 Condition: Good Mode of Transportation: Private Vehicle Prescriptions / Home Meds: No Action cholecalciferol (vitamin D3) 125 mcg (5,000 unit) capsule 5,000 unit PO .COMPLEX Rx Instructions: 5,000 units orally weekly; duloxetine 60 mg capsule,delayed release(DR/EC) 60 mg PO DAILY hydroxyzine pamoate 25 mg capsule 25 mg PO PRN acetazolamide 250 mg tablet 250 mg PO Q12H albuterol sulfate 90 mcg/actuation HFA aerosol inhaler 2 puff INHALATION Q6H PRN (Reason: shortness of breath or wheezing) Rexulti 4 mg tablet 4 mg PO DAILY methylprednisolone 4 mg tablets,dose pack [id number]-ygopplbbd-OR [Bromfed DM] 2-30-10 mg/5 mL syrup 10 ml PO Q6H PRN (Reason: cold symptoms) Qty: 200 0RF benzonatate 100 mg capsule 200 mg PO TID PRN (Reason: cough) Qty: 20 0RF ondansetron 4 mg tablet,disintegrating 4 mg PO Q6H PRN (Reason: nausea/vomiting) Qty: 20 0RF Instructions: Dehydration (ED) Stand Alone Forms: Portal Instructions Referrals: KAYLEE AMES [Primary Care Provider] - 1 week LEONELA MACK [Physician] - 1 week
[2023-10-07 16:36] LABS: Magnesium 2.2 mg/dL (1.8-2.4)
[2023-10-07] MEDS: 0.9 % SODIUM CHLORIDE 1,000 ML 1000 ML IV (16:36)
[2023-10-07 16:37] LABS: Ethanol <3 mg/dL
[2023-10-07] MEDS: FAMOTIDINE/PF 20 MG/2 ML VIAL IV (16:37)
[2023-10-07 16:38] LABS: HCG Qualitative NEGATIVE (NEGATIVE)
[2023-10-07 16:44] LABS: Alanine Aminotransferase 28 U/L (14-59); Albumin Level 3.9 g/dL (3.4-5.0); Alkaline Phosphatase 81 U/L (46-116); Anion Gap 15.2; Aspartate Amino Transferase 20 U/L (15-37); BUN Creatinine Ratio 12.3; Bilirubin Total 0.2 mg/dL (0.2-1.0); Calcium 9.4 mg/dL (8.5-10.1); Carbon Dioxide 22.6 mmol/L (21.0-32.0); Chloride 105 mmol/L (98-107); D Dimer 0.42 mg/L FEU (<=0.59); Estimated GFR (African America >60 (>=60); Estimated GFR (Non-African Ame >60 (>=60); Globulin 4.1 g/dL; Glucose 79 mg/dL (74-106); Potassium 3.8 mmol/L (3.5-5.1); Sodium 139 mmol/L (136-145)
[2023-10-07 16:47] LABS: Troponin I High Sensitivity 4.2 pg/mL (4.0-51.3)
[2023-10-07] MEDS: ACETAMINOPHEN 325 MG TABLET 650 MG PO (17:11)
[2023-10-07] MEDS: KETOROLAC TROMETHAMINE 30 MG/ML VIAL 15 MG IVP (17:11)
== END 2023-10-07 17:41 | disposition home or self-care (01) ==
PROVIDERS: Emergency Provider Emergency Medicine
DX: E86.0 Dehydration (principal); R07.89 Other chest pain; R42 Dizziness and giddiness; F17.200 Nicotine dependence, unspecified, uncomplicated
CPT/HCPCS: 36415; 80053; 80320; 83735; 84484; 84703; 85025; 85378; 93005; 96374; 96375; 99285; J1885

== ENCOUNTER 2023-10-14 14:19 | Emergency (ER) | payer MEDICARE, MEDICAID, SELFPAY ==
[2023-10-14] VITALS (16 sets, daily range): BP systolic 113–131; BP diastolic 75–90; PULSE 67–103; RESP 8–29; TEMP 36.7; O2SAT 98–100; BMI 32.6
--- NOTE | 2023-10-14 14:30 | ECG_ITS ---
The [facility] Test Date: 2023-10-14 Pat Name: LEILA HASSAN Department: Room: - Gender: Female [employer]: : 1990 Requested By: Joe Gannon Order Number: [id number] [place] MD: PRABHJOT RAHMAN Measurements Intervals [place] Rate: 82 P: 26 ME: 138 QRS: 53 QRSD: 80 T: 40 QT: 354 QTc: 393 Interpretive Statements 1100 Sinus rhythm 1470 with occasional supraventricular premature complexes 9140 abnormal rhythm ECG Compared to ECG 10/14/2023 14:41:50 No significant changes Electronically Signed On 10-15-2023 6:50:07 EST by PRABHJOT RAHMAN
--- NOTE | 2023-10-14 14:46 | XR_ITS ---
The [place] [id number] Patient Name: LEILA HASSAN MRN: [id number] date: 1990 Sex: F Assigned Patient Location: ER Current Patient Location: ER Accession/Order Number: [id number] Exam Date: 10/14/2023 14:41 Report Date: 10/14/2023 15:03 At the request of: NEW DREW Procedure: XR chest 1V ONE-VIEW CHEST RADIOGRAPH, 10/14/2023, 2:41 PM EST COMPARISON: Chest, 07/10/2023 CLINICAL HISTORY: chest pain, dizziness, chest pressure for a week. FINDINGS: No acute cardiopulmonary disease. No pulmonary edema, pneumothorax, or pleural effusion. Normal heart size. No acute osseous abnormality. XR/XR chest 1V IMPRESSION: No acute abnormality identified. Electronically authenticated by: Swati LITTLE Date: 10/14/2023 15:03
--- NOTE | 2023-10-14 14:51 | CT_ITS ---
The [address] [address] Patient Name: LEILA HASSAN MRN: [id number] date: 1990 Sex: F Assigned Patient Location: ER Current Patient Location: ER Accession/Order Number: [id number] Exam Date: 10/14/2023 15:30 Report Date: 10/14/2023 15:49 At the request of: NEW DREW Procedure: CT head/brain wo con CLINICAL HISTORY: Dizziness. Difficulty concentrating. EXAMINATION: Unenhanced CT scan of the brain: 10/14/2023. COMPARISON: Unenhanced CT scan of the brain: 06/10/2023. TECHNIQUE: 3 mm axial images from skull base through vertex without intravenous contrast were obtained. Sagittal and coronal reconstructions were also performed. Dose reduction techniques were achieved by using automated exposure control and/or adjustment of mA and/or kV according to patient size and/or use of iterative reconstruction technique. FINDINGS: There is normal appearance to ventricles, sulcal, cisternal spaces. No discrete acute infarct is identified. There is no mass, mass effect, or midline shift. There is no intra or extra-axial hemorrhage. The visualized intraorbital contents appear normal. The visualized paranasal sinuses and mastoid air cells appear normal. The calvarium appears intact. CT/CT head/brain wo con IMPRESSION: No acute infarct, hemorrhage, or acute intracranial process to explain patient's symptoms. Electronically authenticated by: JOHANNA OLIVER Date: 10/14/2023 15:49
--- NOTE | 2023-10-14 14:57 | ED.GENADUL1 ---
HPI - General Adult General Chief complaint: Chest Pain Stated complaint: SHORTNESS OF BREATH/ CHEST PRESSURE Time Seen by Provider: 10/14/23 14:21 Source: patient Mode of arrival: Wheelchair Limitations: no limitations History of Present Illness HPI narrative: Patient told me that for about 9 days she has been experiencing chest pressure, dizziness and nausea without vomiting. No diarrhea - soft stool today. She saw Dr Payton one week ago for same symptoms and had a negative workup. She felt better after getting NS IVF bolus, Tylenol and Pepcid. Today she told me that she also has been experiencing shakiness, head fuzziness and a feeling like my head in a bubble . She has trouble concentrating. No headache. No ringing in the ears. Vision seems off but isn't blurred . She saw her bariatric surgery team this week - no change in meds. She said that she has been eating and drinking normally. Related Data Home Medications Medication Instructions Recorded Confirmed cholecalciferol (vitamin D3) 125 5,000 unit PO .COMPLEX 06/10/23 10/14/23 mcg (5,000 unit) capsule duloxetine 60 mg capsule,delayed 60 mg PO BID 06/10/23 10/14/23 release acetazolamide 250 mg tablet 250 mg PO Q12H 07/10/23 10/14/23 brexpiprazole 4 mg tablet (Rexulti) 4 mg PO DAILY 07/10/23 10/14/23 buspirone 5 mg tablet 5 mg PO BID 10/14/23 10/14/23 trazodone 100 mg tablet 50 mg PO BEDTIME 10/14/23 10/14/23 Previous Rx's Medication Instructions Recorded ondansetron 4 mg disintegrating 4 mg PO Q6H PRN nausea/vomiting 08/14/23 tablet #20 tabs meclizine 25 mg tablet 25 mg PO TID PRN dizziness #20 tabs 10/14/23 Allergies Allergy/AdvReac Type Severity Reaction Status Date / Time aripiprazole [From Abilify] Allergy Unknown Verified 07/10/23 10:33 COCONUT Allergy Uncoded 10/07/23 15:43 PFSH PFSH Social History Smoking status: Current every day smoker Exam Narrative Exam Narrative: Nurses notes and vital signs reviewed and patient is not hypoxic. afebrile General: Well-appearing and in no apparent distress. Skin: Warm, dry, no pallor noted. No rash. Head: Normocephalic, atraumatic. Neck: Supple, non-tender. No meningismus Eye: Pupils are equal, round and EOMI. No scleral icterus. Ears, Nose, Mouth, and Throat: TM are clear, no posterior oropharynx erythema or nasal mucosal hypertrophy, uvula is mid-line Oral mucosa is moist Cardiovascular: Regular Rate and Rhythm without murmur, gallop or rub. Respiratory: No accessory muscle use or respiratory distress. Lungs are clear to auscultation, no wheezing, rales or rhonchi Musculoskeletal: normal ROM GI: Abdomen is soft, non-distended. Normal bowel sounds. No tenderness to palpation. No rebound, guarding, or rigidity noted. Neurological: A&O x4. No cranial nerve dysfunction observed. No truncal ataxia. Moves all extremities. Sensation intact. Psychiatric: Cooperative and interactive. Normal mood and affect. Constitutional Vital Signs, click to edit/add: Last Vital Signs Temp 98.0 F 10/14/23 14:25 Pulse 70 10/14/23 15:54 Resp 12 10/14/23 15:54 BP 123/82 10/14/23 15:54 Pulse Ox 100 10/14/23 15:15 O2 Del Method Room Air 10/14/23 14:25 Course Vital Signs Vital signs: Vital Signs Temperature 98.0 F 10/14/23 14:25 Pulse Rate 87 10/14/23 14:25 Respiratory Rate 18 10/14/23 14:25 Blood Pressure 131/90 10/14/23 14:25 Pulse Oximetry 98 10/14/23 14:25 Oxygen Delivery Method Room Air 10/14/23 14:25 Temperature 98.0 F 10/14/23 14:25 Pulse Rate 70 10/14/23 15:54 Respiratory Rate 12 10/14/23 15:54 Blood Pressure 123/82 10/14/23 15:54 Pulse Oximetry 100 10/14/23 15:15 Oxygen Delivery Method Room Air 10/14/23 14:25 Medical Decision Making MDM Narrative Medical decision making narrative: Patient was placed on environmental monitoring technician and EKG obtained. Blood drawn and sent for evaluation. Orthostatics were negative. EKG did not show any evidence of acute myocardial infarction. Noncontrast head CT likewise did not show any acute hemorrhage, mass or acute intracranial process to explain the patient's symptoms. Blood testing was also normal. At this point I am unable to explain the patient's symptoms Medical Records Medical records reviewed: Yes I reviewed the patient's medical records Medical records narrative: see HPI Lab Data Lab results reviewed: Yes I reviewed the patient's lab results Labs: Lab Results 10/14/23 Range/Units 15:06 WBC 10.1 (4.0-11.0) 10^3/uL RBC 3.63 L (4.20-5.40) 10^6/uL Hgb 10.7 L (12.0-16.0) g/dL Hct 33.6 L (36.0-48.0) % MCV 92.6 (81.0-99.0) fL MCH 29.5 (26.7-34.0) pg MCHC 31.8 (29.9-35.2) g/dL RDW 15.4 H (11.0-15.0) % Plt Count 355 (150-450) 10^3/uL MPV 10.9 (9.5-13.5) fL Neut % (Auto) 67.5 (43.0-75.0) % Lymph % (Auto) 23.2 (20.5-60.0) % [place] % (Auto) 5.8 (1.7-12.0) % Eos % (Auto) 2.5 (0.9-7.0) % Baso % (Auto) 0.8 (0.2-2.0) % Neut # (Auto) 6.8 H (1.4-6.5) 10^3/uL Lymph # (Auto) 2.4 (1.2-3.8) 10^3/uL [place] # (Auto) 0.6 (0.3-0.8) 10^3/uL Eos # (Auto) 0.3 (0.0-0.7) 10^3/uL Baso # (Auto) 0.1 (0.0-0.1) 10^3/uL Abs Immat Gran (auto) 0.02 (0.00-0.03) 10^3/uL Imm/Tot Granulo (auto) 0.2 (0.0-0.5) % Sodium 141 (136-145) mmol/L Potassium 3.8 (3.5-5.1) mmol/L Chloride 106 (98-107) mmol/L Carbon Dioxide 29.0 (21.0-32.0) mmol/L Anion Gap 9.8 BUN 8.0 (7.0-18.0) mg/dL Creatinine 0.66 (0.55-1.02) mg/dL Est GFR ( Amer) >60 (>=60) Est GFR (Non-Af Amer) >60 (>=60) BUN/Creatinine Ratio 12.1 Glucose 66 L (74-106) mg/dL Calcium 9.6 (8.5-10.1) mg/dL Magnesium 1.9 (1.8-2.4) mg/dL Total Bilirubin 0.2 (0.2-1.0) mg/dL AST 19 (15-37) U/L ALT 27 (14-59) U/L Alkaline Phosphatase 75 (46-116) U/L Troponin I High Sens <4.0 L (4.0-51.3) pg/mL Total Protein 7.4 (6.4-8.2) g/dL Albumin 3.6 (3.4-5.0) g/dL Globulin 3.8 g/dL Albumin/Globulin Ratio 0.9 Imaging Data Chest x-ray: Radiologist's impression: ITS Impressions Chest X-Ray 10/14/23 14:46 IMPRESSION: No acute abnormality identified. Electronically authenticated by: Swati LITTLE Date: 10/14/2023 15:[address] 10/14/23 14:51 IMPRESSION: No acute infarct, hemorrhage, or acute intracranial process to explain patient's symptoms. Electronically authenticated by: JOHANNA OLIVER Date: 10/14/2023 15:49 ECG Data Attestation: I personally reviewed and interpreted this ECG as follows: Interpretation: EKG interpretation: Emergency Department physician interpretation. Normal sinus rhythm at 82bpm. Normal axis, normal intervals and no ST segment elevation or depression. Discharge Plan Discharge Chief Complaint: Chest Pain Clinical Impression: Dizziness Patient Disposition: Home, Self-Care Time of Disposition Decision: 16:20 Prescriptions / Home Meds: New meclizine 25 mg tablet 25 mg PO TID PRN (Reason: dizziness) Qty: 20 0RF No Action cholecalciferol (vitamin D3) 125 mcg (5,000 unit) capsule 5,000 unit PO .COMPLEX Rx Instructions: 5,000 units orally weekly; duloxetine 60 mg capsule,delayed release(DR/EC) 60 mg PO BID acetazolamide 250 mg tablet 250 mg PO Q12H Rexulti 4 mg tablet 4 mg PO DAILY ondansetron 4 mg tablet,disintegrating 4 mg PO Q6H PRN (Reason: nausea/vomiting) Qty: 20 0RF buspirone 5 mg tablet 5 mg PO BID trazodone 100 mg tablet 50 mg PO BEDTIME Instructions: Dizziness (ED) Stand Alone Forms: Portal Instructions Referrals: KAYLEE AMES [Primary Care Provider] - 1 week
[2023-10-14] MEDS: 0.9 % SODIUM CHLORIDE 1,000 ML 1000 ML IV (15:01)
[2023-10-14 15:22] LABS: Basophils Absolute Auto 0.1 10^3/uL (0.0-0.1); Basophils Percent Auto 0.8 % (0.2-2.0); Eosinophils Absolute Auto 0.3 10^3/uL (0.0-0.7); Eosinophils Percent Auto 2.5 % (0.9-7.0); Hematocrit 33.6 % (36.0-48.0); Hemoglobin 10.7 g/dL (12.0-16.0); Immature Granulocytes Abs Auto 0.02 10^3/uL (0.00-0.03); Immature Granulocytes Pct Auto 0.2 % (0.0-0.5); Lymphocytes Absolute Auto 2.4 10^3/uL (1.2-3.8); Lymphocytes Percent Auto 23.2 % (20.5-60.0); Mean Corpuscular HGB Conc 31.8 g/dL (29.9-35.2); Mean Corpuscular Hemoglobin 29.5 pg (26.7-34.0); Mean Corpuscular Volume 92.6 fL (81.0-99.0); Mean Platelet Volume 10.9 fL (9.5-13.5); Monocytes Absolute Auto 0.6 10^3/uL (0.3-0.8); Monocytes Percent Auto 5.8 % (1.7-12.0); Neutrophils Absolute Auto 6.8 10^3/uL (1.4-6.5); Neutrophils Percent Auto 67.5 % (43.0-75.0); Platelet Count 355 10^3/uL (150-450); Red Blood Count 3.63 10^6/uL (4.20-5.40); Red Cell Distribution Width 15.4 % (11.0-15.0); White Blood Count 10.1 10^3/uL (4.0-11.0)
[2023-10-14 15:34] LABS: Alanine Aminotransferase 27 U/L (14-59); Albumin Globulin Ratio 0.9; Albumin Level 3.6 g/dL (3.4-5.0); Alkaline Phosphatase 75 U/L (46-116); Anion Gap 9.8; Aspartate Amino Transferase 19 U/L (15-37); BUN Creatinine Ratio 12.1; Bilirubin Total 0.2 mg/dL (0.2-1.0); Calcium 9.6 mg/dL (8.5-10.1); Chloride 106 mmol/L (98-107); Estimated GFR (African America >60 (>=60); Estimated GFR (Non-African Ame >60 (>=60); Globulin 3.8 g/dL; Glucose 66 mg/dL (74-106); Potassium 3.8 mmol/L (3.5-5.1); Sodium 141 mmol/L (136-145); Total Protein 7.4 g/dL (6.4-8.2)
[2023-10-14 15:36] LABS: Magnesium 1.9 mg/dL (1.8-2.4); Troponin I High Sensitivity <4.0 pg/mL (4.0-51.3)
== END 2023-10-14 16:31 | disposition home or self-care (01) ==
PROVIDERS: Emergency Provider Emergency Medicine
DX: R42 Dizziness and giddiness (principal); F17.210 Nicotine dependence, cigarettes, uncomplicated; Z79.899 Other long term (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
CPT/HCPCS: 36415; 70450; 71045; 80053; 83735; 84484; 85025; 93005; 99285

== ENCOUNTER 2023-12-19 10:24 | Emergency (ER) | payer MEDICARE, MEDICAID, SELFPAY ==
[2023-12-19 10:27] VITALS: BP 128/91; PULSE 80; TEMP 36.8; O2SAT 100; BMI 30.5
--- OUTSIDE RECORDS SUMMARY | 2023-12-19 11:09 | XMS_ITS | CCD ---
Author Organization [facility] Care Team Providers Care Document Imaging Specialist Name Role Phone Jennie Ames Primary Care Provider [phone] BEBA COTE Attending Unavailable PROVIDER, UNKNOWN Admitting Unavailable PATIENT, SELF Referring Unavailable Jennie Ames Primary Care Provider Jennie Ames DO Primary Care Provider EJNNIE AMES Primary Care Unavailable Jennie Ames DO Primary Care Provider Unavailable Primary Care Provider UnavailAimee Renee Primary Care Physician Unavailable Primary Care Provider UnavailDO Jennie Pichardo Primary Care Provider MD Sangeetha Peña Admit Provider Beba Hdz Other Provider Unavailable DO Krystal Romo Other Provider MD Carolyne Schilling Other Provider DO Jamie Larsen Other Provider DIANNE Niño-CHRIS Kevin Other Provider DO Kenrick Lee Other Provider CEDRIC Zaragoza Other Provider ASTON Smith Other Provider MD Lizzeth Malave Attending Provider DO Jamie Larsen Referring Provider [phone] DIANNE Niño-CHRIS Kevin Attending Provider Charisse Nakia Brock Primary Care Physician [phone] DR CAROLYNE RALPH Consulting Unavailable MISC, DR VELASCO Primary Care Unavailable HAY ., DR WOLFF Attending Unavailable HAY ., DR WOLFF Admitting Unavailable HAY ., DR WOLFF Consulting Unavailable GABRIELA CAMARGO Attending Unavailable GABRIELA CAMARGO Admitting Unavailable GABRIELA CAMARGO Consulting Unavailable MISC, DR VELASCO Primary Care Unavailable VERO, DR EWI Garcia Attending Unavailabl e REINECK, DR WEI [...] CAMARGO Consulting Unavailable GABRIELA CAMARGO Attending Unavailable KATQUEENIE, GABRIELA D Admitting Unavailable MISC, DR VELASCO Primary Care Unavailable YOLI ALFORD [...] Unavailable MISC, DR VELASCO Primary Care Unavailable HAY ., DR WOLFF Attending Unavailable HAY ., DR WOLFF Admitting Unavailable HAY ., DR WOLFF Consulting Unavailable MISC, DR VELASCO Primary Care Unavailable YOLI FRANKS Consulting Unavailable MISC, DR VELASCO Primary Care Unavailable BON ., STEFANIE Attending Unavailable BON ., STEFANIE Admitting Unavailable GRECHNY ., RAMSES MARTIN Consulting Unavailabl e LUCIANA ALLEN Consulting Unavailable Unavailable Primary Care Provider Unavailabl e Nakia Mcqueen Primary Care Physician [phone] Jennie Ames Primary Care Physician Ames, DO Jennie D Primary Care Provider Tupa, DO Jose Maria Blue Emergency Provider Ania Javed Unavailable Asaad, Imad Unavailable Ames, DO Jennie D Primary Care Provider Korey, DO Jose Maria Blue Emergency Provider MD Yoli Norris Emergency Provider KOKI CORDERO Referring Unavailable AMES, JENNIE D Primary Care Unavailable MARII DASILVA Referring Unavailable AMES, JENNIE D Primary Care Unavailable MAN, SHUMEI Attending Unavailable MAN, SHUMEI Attending Unavailable NAFFOURUTH, SAMER A Referring Unavailable NAFFOUJE, SAMER A Attending Unavailable MAN, SHUMEI Referring Unavailable Ames DO, Jennie D Primary Care Provider GAMALIEL HARRIS Referring Unavailable AMES, JENNIE D Primary Care Unavailable MARII DASILVA Referring Unavailable AMES, JENNIE D Primary Care Unavailable MARII DASILVA Referring Unavailable AMES, JENNIE D Primary Care Unavailable Ames, DO Jennie D Primary Care Provider [phone] MD Marii Christiansen Emergency Provider Alexis Shukla Attending Unavailable Bakari Chester Attending Unavailable Bakari Chester Attending Unavailable REFERRAL, SELF Referring Unavailable Otto Larsen Attending UnavailLLUVIA Diamond Attending Jordana vailable Ames, Jennie D Referring Unavailable Ames, Jennie D Attending Unavailable Ames, Jennie D Admitting Unavailable GIL, LEONOR Bach Attending Unavailable GLI, PAD TUFTER KOKI Bach Admitting Unavailable Ames, Jennie D Primary Care Unavailable Marii Christiansen Admitting Unavailable Marii Christiansen Attending Unavailable Beba Keen Primary Care Unavailable Efrem Victor Admitting Unavailab Efrem Staton Attending Unavailab le Ames, Jennie D Primary Care Unavailable Jose Maria Nair Admitting Unavailable Jose Maria Nair Attending Unavailable Yoli Norris Attending Unavailable Ames, Jennie D Primary Care Unavailable Yoli Norris Admitting Unavailable TupaJose Maria Attending Unavailable Ames, Jennie D Primary Care Unavailable Tupa, Jose Maria M Admitting Unavailable JENNIE AMES Primary Care Unavailable GAMALIEL HARRIS Admitting Unavailable GAMALIEL HARRIS Attending Unavailable MARII DASILVA Referring Unavailable JENNIE AMES Primary Care Unavailable Allergies Allergy Classification Reported Allergen(s) Allergy Type Date of Onset Reaction(s) Facility coconut allergenic extract (7 sources) coconut allergenic extract Drug Allergy 07-18-20 [facility] (20 sources) coconut allergenic extract; 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: [Coconut Oil] Drug Allergy 07-18-20 Itching [place], [place] (15 sources) Coconut Flavor Propensity to adverse reactions to drug 05-09-20 Anaphylaxis [place], [place] (1 source) SOAP; 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: [SOAP] Propensity to adverse reactions to drug (disorder) 11-13-19 [facility] source[facility] Pencils; 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: [Unknown] Propensity to adverse reactions (disorder) 11-13-19 [facility] (12 sources) Coconut extract; 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: [coconut] Drug Allergy 07-18-20 Swelling [facility] (14 sources) ARIPiprazole lauroxil; 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: [aripiprazole] Drug Allergy [facility] (9 sources) ARIPiprazole; 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: [aripiprazole] Drug Allergy 08-19-20 22 Confusion, suicidal, Confusion, suicidal [facility] (1 source) ARIPiprazole Drug Allergy 10-30-19 23 [facility] (2 sources) busPIRone Drug Allergy Unknown [employer] Other (1 source) buPROPion Drug Allergy 07-16-20 21 [facility] (2 sources) busPIRone; 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: [buspirone] Drug Allergy 12-10-19 24 Unknown Reaction [facility] Medications Current Medications Medication Drug Class(es) Dates [...] q4hr for headache, 12 cap(s), Refill(s) 0, [facility]/pharmacy #[id number], 170, cm, 08/22/22 10:41:00 EST, Height/Length Dosing, 85, kg, 08/22/22 10:41:00 EST, Weight Dosing Start Date: 08/22/22 Status: Ordered Start: 08-08-2022 take 1 capsule by [facility] every four hours for headache APAP/butalbital/caffeine 300 mg-50 mg-40 mg oral capsule 1 cap(s), Oral, q4hr for headache, 12 cap(s), Refill(s) 0, [facility]/pharmacy #[id number], 162, cm, 08/08/22 9:11:00 EST, Height/Length [...] day(s), 7 tab(s), Refill(s) 0, [id number], 170, cm, 11/21/22 10:37:00 EST, Height/Length Dosing, [...] 02/06/2021 Start: 01-30-2021 take 1 tablet by [facility] every four hours as needed for pain [...] 1 tablet acetaZOLAMIDE 250 mg oral tablet (18 sources) Carbonic Anhydrase Inhibitor Start: 07-07-2023 End: 09-18-2023 take 250 mg by mouth twice daily Acetazolamide Active 250 MG PO Twice daily August 15, 2023 1:00am Start: 11-20-2022 End: 09-18-2023 take 500 mg by mouth twice daily Acetazolamide Discontinued 500 MG PO Twice daily July 03, 2023 12:00am August 15, 2023 12:41pm Comment on above: Take 1 capsule by mo [facility] twice daily. Start from 500mg daily, increase to twice a day in a week [id number] actuat albuterol 0.09 mg/actuat metered dose [...] Ordered calcium carbonate 1250 mg oral tablet (10 sources) Start: 08-11-2022 take 500 mg by mouth twice daily Calcium Carbonate Active 500 MG PO Twice daily August 11, 2022 1:00am take 1 tablet by mouth once otto [...] day(s), # 42 tab(s), Refills(s) 0, Pharmacy: [facility]/pharmacy #[id number], 170, cm, 08/22/22 10:41:00 EST, Height/Length [...] PO Daily at bedtime August 15, 2023 1:00am Start: 07-20-2020 End: 08-19-2022 Duloxetine Discontinued 30 M G PO Daily at bedtime July 20, 2020 1:00am August 19, 2022 8:39am Take with 60mg tablet for total of [...] Ordered Start: 01-08-2019 take 1 capsule by [facility] once daily at bedtime Duloxetine (Cymbalta) 60 mg Capsule,Delayed Release(Dr/Ec) Active 60 MG PO Daily at bedtime January 08, 2019 12:00am take 1 capsule by [facility] every eight hours Cymbalta 30 MG 1 capsule Orally three times a day Active Cymbalta Active Comment on above: Take 60 mg by mouth once daily. 0.4 ml enoxaparin sodium 100 mg/ml prefilled syringe (1 source) Low Molecular Weight Heparin Start: 021 inject 1 dose by subcutaneous injection twice [...] IRON) TAB) gabapentin 300 mg oral capsule (11 sources) Anti-epileptic Agent Start: 023 End: 024 take 1 capsule by mouth twice daily gabapentin 300 mg Cap 300 mg = 1 cap(s), Oral, BID, Refills(s) 0, Other (see comment) Start Date: 11/21/22 Status: Ordered 1 ml heparin sodium, porcine 5000 unt/ml [...] mg hydrOXYzine hydrochloride 50 mg oral tablet (7 sources) Antihistamine Start: 04-21-2022 hydrOXYzine hy drochloride 50 mg oral tablet Refills(s) 0 Start Date: 04/21/22 Status: Ordered Start: 01-08-2019 End: 07-18-2020 take 25 mg by mouth three times daily Hydroxyzine Pamoate Discontinued 25 MG PO Three times daily January 08, 2019 12:00am July 18, 2020 3:27pm iv contrast (will be provided with radiology [...] 10 mg (1 source) Start: 09-18-2023 labetalol (NORMODYNE;TRANDATE) injection 10 mg labetalol (NORMODYNE;TRANDATE) injection syringe 5 mg (1 source) Start: 09-28-2020 labetalol (NORMODYNE;TRANDATE) injection syringe 5 mg 10 ml lidocaine hydrochloride 10 mg/ml injection (1 source) Antiarrhythmic, Amide Local Anesthetic Start: 09-28-2020 End: 09-28-2020 lidocaine PF 1 % injection 1 mL 1 ml meperidine hydrochloride 50 mg/ml injection (1 source) Opioid Agonist Start: 09-28-2020 meperidine (DE MEROL) injection 12.5 mg 2 ml metoclopramide 5 [...] Start Date: 07/01/21 Status: Ordered Multivitamin preparation (5 sources) Start: 08-11-2022 take 1 tablet by mouth once daily Multivitamin Active 1 TAB PO Daily August 11, 2022 1:00am Start: 08-11-2022 take 1 tablet by juan manuel th once daily Multivitamin Active 1 TAB PO Daily August 11, 2022 12:00am naltrexone 380 mg injection (7 sources) Opioid Antagonist Start: 08-15-2023 End: 09-18-2023 inject 380 mg by intramuscular injection every month Naltrexone Microspheres (Vivitrol) 380 mg suspension,extended rel recon Active 380 MG IM every month August 15, 2023 1:00am Not planning on taking it this month [...] pain, # 20 tab(s), Refills(s) 0, Pharmacy: [facility]/pharmacy #[id number], 170, cm, 04/20/22 15:01:00 EDT, Height/Length Dosing, 81.5, kg, 04/20/22 15:01:00 EDT, Weight Dosing Start Date: 04/20/22 Status: Ordered 24 hr nicotine 0.583 mg/hr transdermal system (1 source) Cholinergic Nicotinic Agonist Start: 11-03-2022 End: 01-02-2023 nicotine 14 mg/24 hr Transderm ER Film 1 patch(es), Topical, Daily for 30 day(s), 30 patch(es), Refill(s) 1, [facility]/pharmacy #[id number], 170, cm, 11/03/22 13:04:00 EST, Height/Length [...] FOOD Start Date: 01/29/22 Status: Ordered nystatin [id number] unt/ml oral suspension (1 source) Polyene Antifungal [...] afterwards. 2 ml ondansetron 2 mg/ml injection (20 sources) Serotonin-3 Receptor Antagonist Start: 09-18-2023 End: 09-19-2023 ondansetron (ZOFRAN) injection 4 mg Start: 08-14-2022 take 1 tablet by juan manuel th twice daily Zofran 8 mg Tab 8 mg = 1 tab(s), Oral, BID, # 6 tab(s), Refills(s) 1, Pharmacy: [facility]/pharmacy #[id number], 162, cm, 08/08/22 9:11:00 EST, Height/Length [...] ondansetron (ZOFRAN) injecti on 4 mg Trileptal (10 sources) Anti-epileptic Agent Start: 08-22-2022 Trileptal Refills(s) 0 Start Date: 08/22/22 Status: Ordered Start: 08-12-2022 End: 08-15-2023 take 75 mg by mouth twice daily Oxcarbazepine Discontinued 75 MG PO Twice daily August 12, 2022 1:00am August 15, 2023 12:45pm oxyCODONE (1 source) Opioid Agonist Start: 09-18-2023 [...] w-ca,fe,fa( promethazine hydrochloride 25 mg oral tablet (15 sources) Phenothiazine Start: 08-15-2023 take 25 mg by mouth every six hours Promethazine Active 25 MG PO Q6H August 15, 2023 1:00am Start: 08-22-2022 Phenergan Refi lls(s) 0 Start Date: 08/22/22 Status: Ordered Start: 08-21-2022 End: 07-03-2023 take 25 mg by mouth every six hours Promethazine Discontinued 25 MG PO Q6H August 21, 2022 1:00am July 03, 2023 10:07am Start: 01-30-2021 inject 12.5 mg by in [...] After every IV line use, Starting on Thu01/31/21 at 2330 For Line Patency: Peripheral IV [...] duration piggyback infusions, Starting on Thu01/30/21 at 2157 Administer at the same rate [...] 10 mL sucralfate 1000 mg oral tablet (3 sources) Aluminum Complex Start: 07-30-2023 End: 09-18-2023 take 1 g by mouth four times daily Sucralfate Active 1 GM PO Four times daily August 15, 2023 1:00am topiramate 100 mg oral tablet (20 sources) Start: 08-15-2023 Topiramate (Topamax) 100 mg tablet Active 50 MG PO Daily August 15, 2023 12:47pm Start: 11-20-2022 End: 06-03-2023 topiramate (TOPAMAX) 100 mg tablet Take 1 tablet by mouth twice daily. Reduce to 50mg for 1-2 weeks, then 25mg for 1-2 weeks, then stop 0 11/20/2022 06/03/2023 Discontinued Start: 08-12-2022 End: 08-15-2023 Topiramate (Topamax) 100 mg Tablet Discontinued 50 MG PO Twice daily 0 30 August 12, 2022 5:17pm August 15, 2023 12:47pm Start: 01-08-2019 End: 08-12-2022 take 1 tablet by mouth once daily at bedtime Topiramate (Topamax) 100 mg Tablet Discontinued 100 MG PO Daily at bedtime January 08, 2019 12:00am August 12, 2022 5:17pm Topamax Not-Taki ng/PRN Topamax Not-Taki ng Comment on above: Take 100 mg by mouth twice daily. Take 1 tablet by juan manuel th twice daily. Reduce to 50mg for 1-2 weeks, then 25mg for 1-2 weeks, then stop traZODone hydrochloride 100 mg oral tablet (20 sources) Serotonin Reuptake Inhibitor Start: 08-22-2022 trazodone Refills(s) 0 Start Date: 08/22/22 Status: Ordered Start: 08-11-2022 End: 07-03-2023 take 100 mg by mouth once daily at bedtime Trazodone Discontinued 100 MG PO Daily at bedtime August 11, 2022 1:00am July 03, 2023 10:07am Start: 01-31-2022 End: 02-07-2022 take 1 tablet by mouth once daily at bedtime traZODONE 50 mg Tab 50 mg = 1 tab(s), Oral, Once a day (at bedtime), X 7 day(s), # 7 tab(s), Refills(s) 0, Pharmacy: [facility]/pharmacy #[id number], 170, cm, 01/31/22 16:58:00 EDT, Height/Length Dosing, 90, kg, 01/31/22 16:58:00 EDT, Weight Dosing Start Date: 01/31/22 Stop Date: 02/07/22 Status: Ordered varenicline 0.5 mg oral tablet (15 sources) Partial Cholinergic Nicotinic Agonist Start: 04-21-2022 varenicline 0.5 mg o ral tablet See Instructions, Step 1: Take 1 [...] successful., # 154 tab(s), Refills(s) 0, [id number] 170, cm, 04/21/22 9:4... Start Date: 04/21/22 Status: Ordered Zofran ODT 4 mg Tab-Dis (2 sources) Start: 08-08-2022 take 1 tablet by mouth every eight hours as needed for nausea Zofran ODT 4 mg Tab-Dis 4 mg = 1 tab(s), Oral, q8hr, PRN Nausea/Vomiting, # 12 tab(s), Refills(s) 0, [id number], 162, cm, 08/08/22 9:11:00 EST, [...] 4 MG PO Daily at bedtime January 08, 2019 12:00am Rexulti Active Comment on above: Take by [...] Nov, Not-Taking/PRN ergocalciferol 1.25 mg oral capsule (5 sources) Provitamin D2 Compound Start: 07-19-2020 End: 08-19-2022 take 77214 [IU] by mouth every week Ergocalciferol (Vitamin D2) Discontinued [id number] UNIT PO every week July 19, 2020 1:00am August 19, 2022 8:39am 2 ml fentaNYL 0.05 mg/ml injection (3 [...] End: 01-08-2021 ketorolac (TORADOL) injection 30 mg lisinopril 5 mg oral tablet (17 sources) Angiotensin Converting Enzyme Inhibitor Start: 08-14-2022 End: 07-03-2023 take 5 mg by mouth once daily Lisinopril Discontinued 5 MG PO Daily August 19, 2022 1:00am July 03, 2023 10:07am LORazepam 1 mg oral tablet (10 sources) Benzodiazepine Start: 01-31-2020 End: 08-19-2022 take 1 mg by mouth twice daily Lorazepam Discontinued 1 MG PO Twice daily July 18, 2020 1:00am August 19, 2022 8:39am Magic Mouthwash (10 sources) Start: 02-06-2022 End: 02-20-2022 Magic Mouthwash Magic Mouthwash, 5 mL, Oral, TID, 240 mL, 0, Swish and swallow. 30 mL Nystatin + 210 mL Diphenhydramine + #5 tabs 20 mg hydrocortisone + Doxycycline 1,000 mg (tabs/cap)., [facility]/pharmacy #[id number], Compound, 170, cm, 02/06/22 9:17:00 EDT, [...] daily Dasilva melts with iron 0 Active grptsedinyhi-lhy-xkyh-FA-vit K (BARIATRIC MULTIVITAMINS) 45 mg iron- 800 mcg-120 mcg cap (9 sources) multivitamin-min -iron-FA-vit K (BARIATRIC MULTIVITAMINS) 45 mg iron- 800 mcg-120 mcg cap Take by mouth. 0 Active Comment on above: Take by mouth. pantoprazole 40 mg delayed release oral tablet (20 sources) Proton Pump Inhibitor Star t: 06-[address] Tab Refills(s) 0 Start Date: 07/01/21 Status: Ordered Start: 06-27-2020 End: 07-07-2021 take 40 mg by mouth once daily Pantoprazole Active 40 MG PO Daily July 18, 2020 1:00am Comment on above: Take 40 mg by mouth once daily. 100 ml potassium chloride 0.1 meq/ml injection (1 source) Start: End: 1 potassium chloride 10 mEq/100 mL IVPB (Peripheral Line) predniSONE 20 mg oral tablet (3 sources) Start: 3 take 1 tablet by mouth every twelve hours predniSONE 20 MG 1 tablet Orally bid for 5 day(s) Jun, Not-Taking/PRN QUEtiapine 100 mg oral tablet (18 sources) Atypical Antipsychotic Start: 0 End: 2 take 100 mg by mouth once daily at bedtime Quetiapine Discontinued 100 MG PO Daily at bedtime July 19, 2020 1:00am August 19, 2022 8:39am Start: 01-08-2019 End: 07-19-2020 take 3 tablets by mouth once daily at bedtime Quetiapine (Seroquel) 50 mg Tablet Discontinued 150 MG PO Daily at bedtime January 08, 2019 12:00am July 19, 2020 1:34am SEROquel Not-Dariel ing/PRN SEROquel Not-Dariel ing End: 12-24-2020 QUEtiapine (SEROQUEL) 100 MG tablet Take 50 mg by mouth daily 0 12/24/2020 Discontinued (LIST CLEANUP) SUMAtriptan (3 sources) Serotonin-1b and Serotonin-1d Receptor Agonist Imitrex Not-Taking/P RN Imitrex Not-Taki ng terbinafine 250 mg oral tablet (5 sources) Allylamine Antifungal Start: 07-19-2020 End: 07-20-2020 take 250 mg by mouth once daily Terbinafine Hcl Discontinued 250 MG PO Daily July 19, 2020 1:00am July 20, 2020 11:10am Problems Active Problems Problem Classification Problem Date Documented Da te Episodic/Chronic Acquired foot deformities (5 sources) Acquired bilateral [...] 0 05-16-2020 Chronic Blindness and vision defects (8 sources) Blurring of visual image; 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: [Other visual disturbances] Onset: 2 08-11-2022 Episodic Cardiac dysrhythmias (7 sources) Palpitations; 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: [Palpitations] 08-12-2022 Episodic Chronic obstructive pulmonary disease and bronchiectasis (1 source) Bronchitis, not specified as acute or chronic Episodic Complications of surgical procedures or medical care (13 sources) Reaction to lumbar puncture; 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: [Other [...] 0 Resolved: 3 05-23-2020 Chronic Essential hypertension (11 sources) Essential hypertension; 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: [Essential (primary) hypertension] Onset: 2 Chronic Headache; including migraine (3 sources) Tension-type headache; 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: [Tension-type headache, unspecified, not intractable] 08-21-2022 Chronic Headache; including migraine (8 sources) Headache; 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: [Headache, unspecified] Onset: 2 Episodic Headache; including migraine (5 sources) Headache; including migraine; 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: [HEADACHE UNSPECIFIED] Onset: 2 Lymphadenitis (13 sources) Localized enlarged lymph nodes; 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: [Localized enlarged lymph nodes] Onset: 2 Episodic Mood disorders (20 sources) Bipolar disorder; 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: [Bipolar disorder, unspecified] Onset: 0 05-16-2020 Chronic Mood disorders (1 source) Mood disorders; 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: [Depression, unspecified] Onset: 0 Nonmalignant breast conditions (19 sources) Hypertrophy of breast; 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: [Hypertrophy of breast] Onset: 2 Episodic Nonspecific chest pain (7 sources) Chest pain, unspecified; 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: [Other chest pain] Onset: 2 Episodic Nutritional deficiencies (20 sources) Vitamin D deficiency; 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: [Vitamin D deficiency, unspecified] Onset: 0 06-27-2020 Chronic Osteoarthritis (13 sources) Arthritis; 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: [Unspecified osteoarthritis, unspecified site] Onset: 0 05-16-2020 Chronic Other aftercare (1 source) Other salvage determiner (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; 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: [OTH FRAUD EXAMINER CURRENT DRUG THERAPY] Onset: 3 Episodic Other [...] pancreas 07-01-2021 Episodic Other nervous system disorders (7 sources) Benign intracranial hypertension; 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: [Benign intracranial hypertension] Onset: 3 Chronic Other nervous system disorders (2 sources) Raised intracranial pressure 11-21-2022 Chronic Other nervous system disorders (2 sources) Benign intracranial hypertension; 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: [Idiopathic intracranial hypertension] Onset: 3 Chronic Other nervous system disorders (1 source) Postoperative pain ; 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: [Other acute postprocedural pain] Episodic Other nutritional; endocrine; and metabolic disorders [...] and redundant skin and subcutaneous tissue] Episodic Pancreatic disorders (not diabetes) (5 sources) Cyst of pancreas; 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: [Cyst of pancreas] Onset: 3 Episodic Personality disorders (20 sources) Borderline personality disorder; 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: [Borderline personality disorder] Onset: 0 05-23-2020 Chronic Poisoning by psychotropic agents (16 sources) Intentional benzodiazepine overdose; 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: [Poisoning by benzodiazepines, intentional self-harm, initial encounter] 04-21-2022 Episodic Residual codes; unclassified (2 sources) Patient encounter status; 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: [Encounter for procedure [...] Patient encounter status; 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: [Preoperative testing] Unclassified (19 sources) History of bypass of stomach Onset: 1 04-21-2022 Unclassified (1 source) CONTACT W/AND (SUSP) EXPOS COVID-19; 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: [CONTACT W/AND (SUSP) EXPOS COVID-19] Onset: 2 Viral infection (1 source) COVID-19; 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: [COVID-19] Onset: 2 Past or Other Problems Problem Classification Problem Date Documented Da te Episodic/Chronic Abdominal hernia (7 sources) Hiatal hernia; 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: [Diaphragmatic hernia without obstruction or gangrene] Resolved: 07-24-2021 Episodic Abdominal pain (12 sources) Generalized abdominal pain; 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: [Generalized abdominal pain] Onset: 11-16-2021 Episodic Acquired foot deformities (8 sources) Acquired [...] 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: [Dehydration] Onset: 01-26-2021 Resolved: 02-25-2021 Episodic Genitourinary symptoms and ill-defined conditions (1 source) Other abnormal findings in urine; 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: [Other abnormal findings in urine] Onset: 07-30-2023 Episodic Menstrual disorders (6 sources) Excessive and frequent menstruation with irregular cycle; 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: [Menorrhagia] Onset: 10-30-2022 Resolved: 05-27-2023 Chronic Nausea and vomiting (9 sources) Vomiting, unspecified; 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: [Nausea] Onset: 06-12-2022 Episodic Nutritional deficiencies (2 sources) Iron deficiency; 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: [...] status] Onset: 01-07-2021 Episodic Other gastrointestinal disorders (5 sources) Bariatric surgery status; 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: [Bariatric surgery status] Onset: 01-07-2021 Episodic Other gastrointestinal disorders (1 source) Constipation, unspecified; 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: [CONSTIPATION UNSPECIFIED] Onset: 11-19-2021 Episodic Other gastrointestinal disorders (1 source) Other specified disorders of peritoneum; 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: [OTHER SPEC DISORDERS PERITONEUM] Onset: 11-19-2021 Episodic Other nervous system disorders (2 sources) Dysphasia; 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: [Dysphasia] Onset: 07-30-2023 Episodic Other nutritional; endocrine; and metabolic disorders [...] 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: [Overweight] Onset: 11-20-2021 11-20-2021 Episodic Other skin disorders (1 source) Nonscarring hair loss, unspecified; 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: [Nonscarring hair loss, unspecified] Onset: 07-30-2023 Episodic Other upper respiratory infections (4 sources) [...] with and (suspected) exposure to covid-19 Z20.822 Unclassified (2 sources) Cyst of abdomen; 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: [Cyst of abdomen] 08-15-2023 Viral infection (1 source) Viral infection, unspecified; 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: [VIRAL INFECTION UNSPECIFIED] Onset: 06-13-2022 Episodic Results Test Name Value Interpretation Reference Range Facility Activated partial thrombopla stin time (aPTT) in platelet poor plasma by coagulation aOrdered By: Marii Christiansen on 12-10-2023 aPTT Coag (PPP) [Time] 28.8 s 25.1-36.5 [facility] Comment on above: A hematocrit value g reater than 55% may lead to inaccurate results in coagulation testing. Patients having hematocrit values >55% require a special collection tube for coagulation studies. Please contact the laboratory at [phone] for redraw instructions. B-Type Natriuretic Peptideon 12-10-2023 Natriuretic peptide B (Bld) [Mass/Vol] 12.0 pg/mL Normal 5-100 [facility] Comment on above: Result Comment: PERF ORMED BY: [place] [address] PATHOLOGIST HAND [employer] CUTTER JOHNIE BOSS M.D. Performed By: #### H EPATIC, BMP, LIPASE, CBC #### [facility] [address] [place] [address] Basic Metabolic Panelon 11-13 Anion gap [Moles/Vol] 9.8 mmol/L Normal 6.0-15.0 [facility] Comment on above: Performed By: #### H EPATIC, BMP, LIPASE, CBC #### [address] Calcium [Mass/Vol] 9.3 mg/dL Normal 8.6-10.3 [facility] Comment on above: Performed By: #### H EPATIC, BMP, LIPASE, CBC #### [facility] [address] [place] [address] Chloride [Moles/Vol] 108 mmol/L High 98-107 [facility] Comment on above: Performed By: #### H EPATIC, BMP, LIPASE, CBC #### [address] CO2 [Moles/Vol] 26.2 mmol/L Normal 21.0-31.[address] [facility] Comment on above: Performed By: #### H EPATIC, BMP, LIPASE, CBC #### [facility] [address] [place] [address] Creatinine [Mass/Vol] 0.63 mg/dL Normal 0.60-1.20 [facility] Comment on above: Performed By: #### H EPATIC, BMP, LIPASE, CBC #### [facility] [address] [place] [address] Creatinine Clr Calc Pharmacy 144.76 Normal [facility] Comment on above: Performed By: #### H EPATIC, BMP, LIPASE, CBC #### [facility] [address] [place] [address] [place] GFR/1.73 sq M.predicted MDRD (S/P/Bld) [Vol rate/Area] mL/min/{1.73_m2} Normal [facility] Comment on above: Performed By: #### H EPATIC, BMP, LIPASE, CBC #### [facility] [address] Glucose [Mass/Vol] 84 mg/dL Normal 70-100 [facility] Comment on above: Result Comment: [facility] Glucose Reference Range is dependent on time and content of last meal. Glucose of more than 200 mg/dL in a nonstressed, ambulatory subject supports the diagnosis of Diabetes Mellitus. ADA recommended reference range Performed By: #### H EPATIC, BMP, LIPASE, CBC #### [address] Potassium [Moles/Vol] 4.0 mmol/L Normal 3.5-5.1 [facility] Comment on above: Performed By: #### H EPATIC, BMP, LIPASE, CBC #### [address] Sodium [Moles/Vol] 140 mmol/L Normal 136-145 [facility] Comment on above: Performed By: #### H EPATIC, BMP, LIPASE, CBC #### [address] Urea nitrogen [Mass/Vol] 14 mg/dL Normal 7-25 [facility] Comment on above: Performed By: #### H EPATIC, BMP, LIPASE, CBC #### [facility] [address] [place] [address] [place] Basophils Auto (Bld) [#/Vol] Ordered By: Marii Christiansen on 12-10-2023 Basophils (Bld) [#/Vol] 0.1 10*3/uL 0.0-0.2 [facility] Basophils/100 WBC Auto (Bld) Ordered By: Marii Christiansen on 12-10-2023 Basophils/100 WBC (Bld) 1.0 % . [facility] Calcium [Mass/volume] in Ser um or PlasmaOrdered By: Marii Christiansen on 12-10-2023 Calcium [Mass/Vol] 9.3 mg/dL 8.6-10.3 [facility] Carbon dioxide, total [Moles /volume] in Serum or PlasmaOrdered By: Marii Christiansen on 12-10-2023 CO2 [Moles/Vol] 26.2 mmol/L 21.0-31.[address] [facility] Chloride [Moles/volume] in S tushar or PlasmaOrdered By: Marii Christiansen on 12-10-2023 Chloride [Moles/Vol] 108 mmol/L 98-107 [facility] Choriogonadotropin.beta subu nit [Units/volume] in Serum or PlasmaOrdered By: Marii Christiansen on 12-10-2023 HCG.beta subunit Qn Negative [facility] Complete Blood Count Auto Di ffon 12-10-2023 Basophils (Bld) [#/Vol] 0.1 10*3/uL Normal 0.0-0.2 [facility] Comment on above: Result Comment: PERF ORMED BY: [place] [address] PATHOLOGIST HAND [employer] CUTTER JOHNIE BOSS M.D. Performed By: #### H S TROP, BMP, MG, PTT, TSH3, T4F, HCGQUAL, PHOS, PT, CBC, CK, BNP #### [facility] [address] [place] [address] Basophils/100 WBC (Bld) 1.0 % Normal . [facility] Comment on above: Performed By: #### H S TROP, BMP, MG, PTT, TSH3, T4F, HCGQUAL, PHOS, PT, CBC, CK, BNP #### [facility] [address] [place] [address] Eosinophils (Bld) [#/Vol] 0.1 10*3/uL Normal 0.0-0.45 [facility] Comment on above: Performed By: #### H S TROP, BMP, MG, PTT, TSH3, T4F, HCGQUAL, PHOS, PT, CBC, CK, BNP #### [address] Eosinophils/100 WBC (Bld) 1.7 % Normal . [facility] Comment on above: Performed By: #### H S TROP, BMP, MG, PTT, TSH3, T4F, HCGQUAL, PHOS, PT, CBC, CK, BNP #### [address] Erythrocyte distribution width (RBC) [Ratio] 18.2 % High 11.9-15.3 [facility] Comment on above: Performed By: #### H S TROP, BMP, MG, PTT, TSH3, T4F, HCGQUAL, PHOS, PT, CBC, CK, BNP #### [address] Hematocrit (Bld) [Volume fraction] 34.4 % Normal 34.0-46.4 [facility] Comment on above: Performed By: #### H S TROP, BMP, MG, PTT, TSH3, T4F, HCGQUAL, PHOS, PT, CBC, CK, BNP #### [address] Hemoglobin (Bld) [Mass/Vol] 11.2 g/dL Low 11.8-15.4 [facility] Comment on above: Performed By: #### H S TROP, BMP, MG, PTT, TSH3, T4F, HCGQUAL, PHOS, PT, CBC, CK, BNP #### [address] Lymphocytes (Bld) [#/Vol] 1.6 10*3/uL Normal 1.00-4.8 [facility] Comment on above: Performed By: #### H S TROP, BMP, MG, PTT, TSH3, T4F, HCGQUAL, PHOS, PT, CBC, CK, BNP #### [address] Lymphocytes/100 WBC (Bld) 21.9 % Normal . [facility] Comment on above: Performed By: #### H S TROP, BMP, MG, PTT, TSH3, T4F, HCGQUAL, PHOS, PT, CBC, CK, BNP #### [address] MCH (RBC) [Entitic mass] 28.8 pg Normal 24.7-34.3 [facility] Comment on above: Performed By: #### H S TROP, BMP, MG, PTT, TSH3, T4F, HCGQUAL, PHOS, PT, CBC, CK, BNP #### [address] MCV (RBC) [Entitic vol] 88.7 fL Normal 80-100 [facility] Comment on above: Performed By: #### H S TROP, BMP, MG, PTT, TSH3, T4F, HCGQUAL, PHOS, PT, CBC, CK, BNP #### [address] Mean Corpuscular HGB Conc 32.5 g/dL Normal 32.0-35.0 [facility] Comment on above: Performed By: #### H S TROP, BMP, MG, PTT, TSH3, T4F, HCGQUAL, PHOS, PT, CBC, CK, BNP #### [address] Monocytes (Bld) [#/Vol] 0.5 10*3/uL Normal 0.0-0.8 [facility] Comment on above: Performed By: #### H S TROP, BMP, MG, PTT, TSH3, T4F, HCGQUAL, PHOS, PT, CBC, CK, BNP #### [address] Monocytes/100 WBC (Bld) 16.94 % Normal 0.00-20.00 [facility] Comment on above: Performed By: #### H S TROP, BMP, MG, PTT, TSH3, T4F, HCGQUAL, PHOS, PT, CBC, CK, BNP #### [address] Monocytes/100 WBC (Bld) 6.4 % Normal . [facility] Comment on above: Performed By: #### H S TROP, BMP, MG, PTT, TSH3, T4F, HCGQUAL, PHOS, PT, CBC, CK, BNP #### [address] Neutrophils (Bld) [#/Vol] 4.9 10*3/uL Normal 1.8-7.7 [facility] Comment on above: Performed By: #### H S TROP, BMP, MG, PTT, TSH3, T4F, HCGQUAL, PHOS, PT, CBC, CK, BNP #### [address] Neutrophils/100 WBC (Bld) 69.0 % Normal . [facility] Comment on above: Performed By: #### H S TROP, BMP, MG, PTT, TSH3, T4F, HCGQUAL, PHOS, PT, CBC, CK, BNP #### [address] NRBC% 0.1 /100{WBC} Normal 0-0.5 [facility] Comment on above: Performed By: #### H S TROP, BMP, MG, PTT, TSH3, T4F, HCGQUAL, PHOS, PT, CBC, CK, BNP #### [address] Platelet mean volume (Bld) [Entitic vol] 9.2 fL Normal 6.3-10.7 [facility] Comment on above: Performed By: #### H S TROP, BMP, MG, PTT, TSH3, T4F, HCGQUAL, PHOS, PT, CBC, CK, BNP #### [address] Platelets (Bld) [#/Vol] 331 10*3/uL Normal 150-450 [facility] Comment on above: Performed By: #### H S TROP, BMP, MG, PTT, TSH3, T4F, HCGQUAL, PHOS, PT, CBC, CK, BNP #### [address] RBC (Bld) [#/Vol] 3.88 10*6/uL Normal 3.60-5.00 [facility] Comment on above: Performed By: #### H S TROP, BMP, MG, PTT, TSH3, T4F, HCGQUAL, PHOS, PT, CBC, CK, BNP #### [facility] [address] WBC (Bld) [#/Vol] 7.1 10*3/uL Normal 3.8-11.6 [facility] Comment on above: Performed By: #### H S TROP, BMP, MG, PTT, TSH3, T4F, HCGQUAL, PHOS, PT, CBC, CK, BNP #### [address] Creatine Kinaseon 12-10-2023 CK [Catalytic activity/Vol] 90 U/L Normal [facility] Comment on above: Performed By: #### H EPATIC, BMP, LIPASE, CBC #### [address] Creatine kinase [Enzymatic a ctivity/volume] in Serum or PlasmaOrdered By: Marii Christiansen on 12-10-2023 CK [Catalytic activity/Vol] 90 U/L [facility] Creatinine [Mass/volume] in Serum or PlasmaOrdered By: Marii Christiansen on 12-10-2023 Creatinine [Mass/Vol] 0.63 mg/dL 0.60-1.20 [facility] ECG 12 lead ECGon 12-10-2023 ECG 12 lead ECG [facility] [place] [address] Electrocardiograph Report Signed Patient: Shazia Chou MR#: [id number] : 1990 Acct:[id number] Age/Sex: 32 / F ADM Date: 12/10/23 Loc: ER Room: Type: [facility] ER Attending Dr: Ordering Provider: Marii Christiansen MD Date of Service: 12/10/23 ECG/ECG 12 lead ECG: Chest Pain Copies to: Test Reason : Blood Pressure : / mmHG Vent. Rate : 076 BPM Atrial Rate : 076 BPM P-R Int : 134 ms QRS Dur : 082 ms QT Int : 356 ms P-R-T Axes : 047 066 045 degrees QTc Int : 400 ms Normal sinus rhythm Confirmed by Jaylon YANES DO ([id number]) on 12/10/2023 3:20:27 PM Referred By: Electronically Signed By:Jaylon YANES DO Transcribed By: MUS Signed By Jaylon Yanes DO 0 12/10/23 1520 Normal [facility] Eosinophils Auto (Bld) [#/Vo l]Ordered By: Marii Christiansen on 12-10-2023 Eosinophils (Bld) [#/Vol] 0.1 10*3/uL 0.0-0.45 [facility] Eosinophils/100 WBC Auto (Bl d)Ordered By: Marii Christiansen on 12-10-2023 Eosinophils/100 WBC (Bld) 1.7 % . [facility] Erythrocyte distribution wid th Auto (RBC) [Ratio]Ordered By: Marii Christiansen on 12-10-2023 Erythrocyte distribution width (RBC) [Ratio] 18.2 % 11.9-15.3 [facility] Free T4 (Free Thyroxine)on 0 12-10-2023 Free T4 [Mass/Vol] 0.82 ng/dL Normal 0.61-1.12 [facility] Comment on above: Performed By: #### H EPATIC, BMP, LIPASE, CBC #### [facility] [address] Glucose [Mass/volume] in Ser um or PlasmaOrdered By: Marii Christiansen on 12-10-2023 Glucose [Mass/Vol] 84 mg/dL 70-100 [facility] Comment on above: ADA recommended refe rence rangeRandom Glucose Reference Range is dependent on time and content of last meal. Glucose of more than 200 mg/dL in a nonstressed, ambulatory subject supports the diagnosis of Diabetes Mellitus. HCG,Qualitative Serumon 11-13 HCG,Qualitative Serum Negative Normal [facility] Comment on above: Result Comment: PERF ORMED BY: [address] [place] [address] PATHOLOGIST HAND [employer] CUTTER JOHNIE BOSS M.D. Performed By: #### H EPATIC, BMP, LIPASE, CBC #### [address] Hematocrit Auto (Bld) [Volum e fraction]Ordered By: Marii Christiansen on 12-10-2023 Hematocrit (Bld) [Volume fraction] 34.4 % 34.0-46.4 [facility] Hemoglobin [Mass/volume] in BloodOrdered By: Marii Christiansen on 12-10-2023 Hemoglobin (Bld) [Mass/Vol] 11.2 g/dL 11.8-15.4 [facility] INR in Platelet poor plasma by Coagulation assayOrdered By: Marii Christiansen on 12-10-2023 INR Coag (PPP) [Relative time] 1.0 {INR} [facility] Comment on above: INR Therapeutic Rang e A) Pre- and Peroperative OAT started two weeks before surgery. NOT HIP SURGERY: 1.5 - 2.5 HIP SURGERY: 2 - 3B) Primary and secondary prevention of venous THROMBOSIS: 2 - 3C) Active venous thrombosis, pulmonary embolismand prevention of recurrent venous thrombosis: 2 - 3D) Prevention of arterial thromboembolismincluding patients with mechanical heart valves: 3 - 4.5 Leukocytes [#/volume] correc caitlin for nucleated erythrocytes in Blood by Automated counOrdered By: Marii Christiansen on 12-10-2023 WBC corrected for nucl RBC Auto (Bld) [#/Vol] 7.1 10*3/uL 3.8-11.6 [facility] Lymphocytes Auto (Bld) [#/Vo l]Ordered By: Marii Christiansen on 12-10-2023 Lymphocytes (Bld) [#/Vol] 1.6 10*3/uL 1.00-4.8 [facility] Lymphocytes/100 WBC Auto (Bl d)Ordered By: Marii Christiansen on 12-10-2023 Lymphocytes/100 WBC (Bld) 21.9 % . [facility] MCH Auto (RBC) [Entitic mass ]Ordered By: Marii Christiansen on 12-10-2023 MCH (RBC) [Entitic mass] 28.8 pg 24.7-34.3 [facility] MCHC Auto (RBC) [Mass/Vol]Or dered By: Marii Christiansen on 12-10-2023 MCHC (RBC) [Mass/Vol] 32.5 g/dL 32.0-35.0 [facility] MCV Auto (RBC) [Entitic vol] Ordered By: Marii Christiansen on 12-10-2023 MCV (RBC) [Entitic vol] 88.7 fL 80-100 [facility] Magnesiumon 12-10-2023 Magnesium [Mass/Vol] 1.9 mg/dL Normal 1.9-2.7 [facility] Comment on above: Performed By: #### H EPATIC, BMP, LIPASE, CBC #### [facility] [address] Magnesium [Mass/volume] in S tushar or PlasmaOrdered By: Marii Christiansen on 12-10-2023 Magnesium [Mass/Vol] 1.9 mg/dL 1.9-2.7 [facility] Monocyte distribution width [Entitic volume] in Blood by AutomatedOrdered By: Marii Christiansen on 12-10-2023 Monocyte distribution width Auto (Bld) [Entitic vol] 16.94 % 0.00-20.00 [facility] Monocytes Auto (Bld) [#/Vol] Ordered By: Marii Christiansen on 12-10-2023 Monocytes (Bld) [#/Vol] 0.5 10*3/uL 0.0-0.8 [facility] Monocytes/100 WBC Auto (Bld) Ordered By: Marii Christiansen on 12-10-2023 Monocytes/100 WBC (Bld) 6.4 % . [facility] Natriuretic peptide B [Mass/ Vol]Ordered By: Marii Christiansen on 12-10-2023 Natriuretic peptide B (Bld) [Mass/Vol] 12.0 pg/mL 5-100 [facility] Neutrophils Auto (Bld) [#/Vo l]Ordered By: Marii Christiansen on 12-10-2023 Neutrophils (Bld) [#/Vol] 4.9 10*3/uL 1.8-7.7 [facility] Neutrophils/100 WBC Auto (Bl d)Ordered By: Marii Christiansen on 12-10-2023 Neutrophils/100 WBC (Bld) 69.0 % . [facility] No Panel InformationOrdered By: Marii Christiansen on 12-10-2023 Estimated GFR (CKD-EPI) > 60.0 mL/Min [facility] Creatinine Clearance (Chem 144.76 [facility] Nucleated erythrocytes [Pres ence] in Blood by Automated countOrdered By: Marii Christiansen on 12-10-2023 Nucleated RBC Auto Ql (Bld) 0.1 /100{WBC} 0-0.5 [facility] Partial Thromboplastin Timeo n 12-10-2023 aPTT Coag (Bld) [Time] 28.8 s Normal 25.1-36.5 [facility] Comment on above: Result Comment: A he matocrit value greater than 55% may lead to inaccurate results in coagulation testing. Patients having hematocrit values >55% require a special collection tube for coagulation studies. Please contact the laboratory at [phone] for redraw instructions. PERFORMED BY: [address] [place] [address] PATHOLOGIST HAND [employer] CUTTER JOHNIE BOSS M.D. Performed By: #### H EPATIC, BMP, LIPASE, CBC #### [facility] [address] [place] [id number] [facility] Phosphate [Mass/volume] in S tushar or PlasmaOrdered By: Marii Christiansen on 12-10-2023 Phosphate [Mass/Vol] 3.7 mg/dL 2.5-4.5 [facility] Phosphoruson 12-10-2023 Phosphate [Mass/Vol] 3.7 mg/dL Normal 2.5-4.5 [facility] Comment on above: Performed By: #### H EPATIC, BMP, LIPASE, CBC #### [facility] [address] [place] [address] [place] Platelet mean volume Auto (B ld) [Entitic vol]Ordered By: Marii Christiansen on 12-10-2023 Platelet mean volume (Bld) [Entitic vol] 9.2 fL 6.3-10.7 [facility] Platelets Auto (Bld) [#/Vol] Ordered By: Marii Christiansen on 12-10-2023 Platelets (Bld) [#/Vol] 331 10*3/uL 150-450 [facility] Potassium [Moles/volume] in Serum or PlasmaOrdered By: Marii Christiansen on 12-10-2023 Potassium [Moles/Vol] 4.0 mmol/L 3.5-5.1 [facility] Prothrombin Time INRon 12-09 INR Coag (PPP) [Relative time] 1.0 {INR} Normal [facility] Comment on above: Result Comment: INR Therapeutic Range A) Pre- and Peroperative OAT started two weeks before surgery. NOT HIP SURGERY: 1.5 - 2.5 HIP SURGERY: 2 - 3 B) Primary and secondary prevention of venous THROMBOSIS: 2 - 3 C) Active venous thrombosis, pulmonary embolism and prevention of recurrent venous thrombosis: 2 - 3 D) Prevention of arterial thromboembolism including patients with mechanical heart valves: 3 - 4.5 Performed By: #### H EPATIC, BMP, LIPASE, CBC #### [facility] [address] [place] [id number] [facility] PT Coag (PPP) [Time] 11.3 s Normal 9.0-12.9 [facility] Comment on above: Result Comment: A he matocrit value greater than 55% may lead to inaccurate results in coagulation testing. Patients having hematocrit values >55% require a special collection tube for coagulation studies. Please contact the laboratory at [phone] for redraw instructions. Performed By: #### H EPATIC, BMP, LIPASE, CBC #### [facility] [address] [place] [id number] [facility] Prothrombin time (PT)Ordered By: Marii Christiansen on 12-10-2023 PT Coag (PPP) [Time] 11.3 s 9.0-12.9 [facility] Comment on above: A hematocrit value g reater than 55% may lead to inaccurate results in coagulation testing. Patients having hematocrit values >55% require a special collection tube for coagulation studies. Please contact the laboratory at [phone] for redraw instructions. RBC Auto (Bld) [#/Vol]Ordere d By: Marii Christiansen on 12-10-2023 RBC (Bld) [#/Vol] 3.88 10*6/uL 3.60-5.00 [facility] Serum or plasma anion gap de terminationOrdered By: Marii Christiansen on 12-10-2023 Anion gap [Moles/Vol] 9.8 mmol/L 6.0-15.0 [facility] Sodium [Moles/volume] in Ser um or PlasmaOrdered By: Marii Christiansen on 12-10-2023 Sodium [Moles/Vol] 140 mmol/L 136-145 [facility] Thyroid Stimulating Hormoneo n 12-10-2023 TSH Qn 0.61 m[IU]/L Normal 0.45-5.33 [facility] Comment on above: Performed By: #### H EPATIC, BMP, LIPASE, CBC #### [facility] [address] Thyrotropin [Units/volume] i n Serum or PlasmaOrdered By: Marii Christiansen on 12-10-2023 TSH Qn 0.61 m[IU]/L 0.45-5.33 [facility] Thyroxine (T4) free [Mass/vo lume] in Serum or PlasmaOrdered By: Marii Christiansen on 12-10-2023 Free T4 [Mass/Vol] 0.82 ng/dL 0.61-1.12 [facility] Troponin I High Sensitivityo n 12-10-2023 Troponin I High Sensitivity < 2.3 Normal 0.0-15.0 [facility] Comment on above: Result Comment: PERF ORMED BY: [address] [place] [address] PATHOLOGIST HAND [employer] C[employer]TER JOHNIE BOSS M.D. Performed By: #### H EPATIC, BMP, LIPASE, CBC #### [facility] [address] Troponin I.cardiac [Mass/vol ume] in Serum or Plasma by Detection limit <= 0.01 ng/Ordered By: Marii Christiansen on 12-10-2023 Troponin I.cardiac DL <= 0.01 ng/mL [Mass/Vol] < 2.3 pg/mL 0.0-15.0 [facility] Urea nitrogen [Mass/volume] in Serum or PlasmaOrdered By: Marii Christiansen on 12-10-2023 Urea nitrogen [Mass/Vol] 14 mg/dL 7-25 [facility] WBC Auto (Bld) [#/Vol]Ordere d By: Marii Christiansen on 12-10-2023 WBC (Bld) [#/Vol] 7.1 10*3/uL 3.8-11.6 [facility] XR chest 2V*on 12-10-2023 XR chest 2V* [facility] [address] [place] [address] [place] [address] XRay Report Signed Patient: Shazia Chou MR#: [id number] : 1990 Acct:[id number] Age/Sex: 32 / F ADM Date: 12/10/23 Loc: ER Room: Type: [facility] ER Attending Dr: Copies to: Marii Christiansen MD Ordering Provider: Marii Christiansen MD Date of Service: 12/10/23 XR/XR chest 2V*: Chest Pain PA AND LATERAL CHEST: CLINICAL HISTORY: Chest pressure and dizziness COMPARISON: None There is no focal parenchymal consolidation, effusion or pneumothorax. The cardiac, hilar and mediastinal silhouettes are within normal limits. There is no vascular congestion. The visualized bony thorax is intact. Dextroscoliotic curvature is noted. XR/XR chest 2V* IMPRESSION: NO ACUTE CARDIOPULMONARY ABNORMALITY. Impression dictated by: Gaye Peraza M.D.12/10/2023 2:29 PM Dictation Location: [place] [address] Transcribed By: [facility] 12/10/23 1429 Dictated By: Gaye Peraza MD 12/10/23 1428 Signed By: 12/10/23 1429 Normal [facility] Consent for Treatmenton 11-13 Consent for Treatment [id number] [facility] MA Mamm Diag w/CAD if perf a nd 3D LTon 12-09-2023 MA Mamm Diag w/CAD if perf and 3D LT Exam Date/Time: 12/09/2023 09:39 EDT Reason for Exam: N63.20 Report IMPRESSION: BIRADS 1 NEGATIVE, NORMAL INTERVAL FOLLOW-UP.NO FOLLOWUP NEEDED. FOLLOW-UP BASED ON CLINICAL CRITERIA OR AGE CRITERIA IS SUGGESTED. CLINICALLY PALPABLE FINDINGS SHOULD BE MANAGED CLINICALLY. CLINICAL HISTORY: N63.20. COMPARISON: 04/22/2022. COMMENT: Routine views and tomosynthesis views of the left breast were obtained. The left breast is heterogeneously dense, which may obscure small masses. A marker was placed on the skin surface of the posterior upper outer left breast indicating where the patient feels a lump. No mammographic abnormality is identified in proximity to the skin marker. No dominant breast mass nor neoplastic calcifications are noted. There has been no significant change when compared to the prior exam. The examination was reviewed with Computer Aided Detection. An ultrasound was obtained at all clock face positions and in the central/ retroareolar region of the left breast. On scanning at 2:00, where the patient feels a lump, no ultrasound abnormality is noted. The left breast is unremarkable on this ultrasound exam, and no mass, no cyst, nor suspicious lesion is evident. Breast Density: Yes Mammography is very important to your health. The current [place] [employer] and National [employer] guidelines recommends annual mammography beginning at age 40. This facility utilizes a reminder system to ensure all patients receive reminder notifications at the appropriate time based on the recommendations of this exam. Board Certified Radiologists. Accredited by the ACR and FDA. Ordering Provider: Jennie Ames FINAL REPORT Dictated: 12/09/2023 4:27 pm Mychal Cabezas M.D. Signed (Electronic Signature): 12/09/2023 4:27 pm Signed by: Mychal Cabezas M.D. Transcribed by: MARCO Technologist: ANABEL Assessment: BI-RADS Category 1-Negative Recommendation: Normal interval follow-up Romeo [facility] Breast Unilateral Lt Comp leteon 12-09-2023 US Breast Unilateral Lt Complete Exam Date/Time: 12/09/2023 10:07 EDT Reason for Exam: N63.21 Report PLEASE REFER TO THE MAMMOGRAM REPORT. Ordering Provider: Jennie Ames FINAL REPORT Dictated: 12/09/2023 4:28 pm Mychal Cabezas M.D. Signed (Electronic Signature): 12/09/2023 4:28 pm Signed by: Mychal Cabezas M.D. Transcribed by: MARCO Technologist: KYLE [facility] Physician Orderon 12-08-2023 Physician Order [id number] Normal [facility] CT ABDOMEN PELVIS W IV CONTR Melba 10-25-2023 CT ABDOMEN PELVIS W IV CONTRAST EXAMINATION: CT ABDOMEN PELVIS W IV CONTRAST, 10/23/2023 7:41 AM EST HISTORY: Status post gastric bypass for obesity, left mid to upper abdominal pain. Prior gastric bypass surgery December 2020. COMPARISON: MRI abdomen 08/18/2023. CT abdomen/pelvis 11/16/2021, 11/22/2020. TECHNIQUE: CT scan of the abdomen and pelvis was performed with IV contrast. CT dose reduction technique was used, including Automated Exposure Control. FINDINGS: LUNGS: Minor dependent atelectasis in the right lower lobe. 4 mm noncalcified nodule right lower lobe is stable back to 12/02/2020. ABDOMINAL AORTA: No aortic aneurysm identified. LYMPH NODES: No retroperitoneal, mesenteric or pelvic lymphadenopathy. LIVER: Liver contour appears smooth. No focal liver parenchymal mass identified. BILIARY TREE AND GALLBLADDER: No intrahepatic or extrahepatic bile duct dilatation. Gallbladder is fluid distended without calcified gallstones. PANCREAS: Normal in size without masses or ductal dilatation. No peripancreatic inflammatory changes. SPLEEN: Normal in size without focal lesions. ADRENAL GLANDS: Normal bilaterally, without nodules. KIDNEYS/URINARY BLADDER: Kidneys enhance in a symmetric fashion. No parenchymal lesions identified. No KUB stones or hydronephrosis identified. The urinary bladder appears unremarkable. GASTROINTESTINAL TRACT: Prior gastric bypass surgery. No bowel obstruction. Appendix appears normal. Thin-walled cyst is noted in the proximal mesentery between the pancreas and stomach measuring 3.6 x 2.9 cm (previously 3.1 x 2.4 cm). PERITONEAL CAVITY AND SURFACES: No free fluid. No free intraperitoneal air. REPRODUCTIVE ORGANS: Prior hysterectomy. ABDOMINAL WALL: No abdominal hernias are seen. Soft tissue density in the subcutaneous fat along the posterior right hip region measuring 4.5 x 2.0 cm. OSSEOUS STRUCTURES: No aggressive appearing osseous lesions. No compression fracture is identified. Chronic L5 pars defects are seen with grade 1 anterolisthesis L5-S1 measuring 9 mm. Prominent degenerative disc disease L5-S1. IMPRESSION: 1. Thin-walled cyst in the proximal mesentery is redemonstrated (previously 3.[address] 11/16/2021, but stable from MRI 08/18/2023). Differential remains unchanged. 2. Soft tissue density along the posterior right hip in the subcutaneous fat may correlate with an injection site. Recommend clinical correlation. 3. No acute intra-abdominal process identified. 4. Prior gastric bypass surgery and hysterectomy. Interpreted by: Jacob Dillon DO Signed by: Jacob Dillon DO 10/25/23 Final result Normal [facility] CBC panel Auto (Bld)on 08-31 Erythrocyte distribution width (RBC) [Ratio] 14.7 % Normal 11.5-15.0 [facility] Comment on above: Order Comment: Speci men Type: BLOOD SPECIMEN Ordering Facility: [facility] Address: [address] [place] [address] Performed By: #### 5 8410-2 #### [facility] CLIA [id number] [address] [place] [address] [place] Hematocrit (Bld) [Volume fraction] 36.9 % Normal 36.0-46.0 [facility] Comment on above: Order Comment: Speci men Type: BLOOD SPECIMEN Ordering Facility: [facility] Address: [address] [place] [address] Performed By: #### 5 8410-2 #### [facility] CLIA [id number] [address] [place] [address] [place] Hemoglobin (Bld) [Mass/Vol] 11.7 g/dL Normal 11.5-15.5 [facility] Comment on above: Order Comment: Speci men Type: BLOOD SPECIMEN Ordering Facility: [facility] Address: [address] [place] [address] Performed By: #### 5 8410-2 #### [facility] CLIA [id number] [address] [place] [address] [place] MCH (RBC) [Entitic mass] 29.8 pg Normal 26.0-34.0 [facility] Comment on above: Order Comment: Speci men Type: BLOOD SPECIMEN Ordering Facility: [facility] Address: [address] [place] [address] Performed By: #### 5 8410-2 #### [facility] CLIA [id number] [address] [place] [address] [place] MCHC (RBC) [Mass/Vol] 31.7 g/dL Normal 30.5-36.0 [facility] Comment on above: Order Comment: Speci men Type: BLOOD SPECIMEN Ordering Facility: [facility] Address: [address] [place] [address] Performed By: #### 5 8410-2 #### [facility] CLIA [id number] [address] [place] [address] [place] MCV (RBC) [Entitic vol] 93.9 fL Normal 80.0-100.0 [facility] Comment on above: Order Comment: Speci men Type: BLOOD SPECIMEN Ordering Facility: [facility] Address: [address] [place] [address] Performed By: #### 5 8410-2 #### [facility] CLIA [id number] [address] [place] [address] [place] Nucleated RBC (Bld) [#/Vol] 10*3/uL Normal <0.01 [facility] Comment on above: Order Comment: Speci men Type: BLOOD SPECIMEN Ordering Facility: [facility] Address: [address] [place] [address] Performed By: #### 5 8410-2 #### [facility] CLIA [id number] [address] [place] [address] [place] Platelet mean volume (Bld) [Entitic vol] 11.1 fL Normal 9.0-12.7 [facility] Comment on above: Order Comment: Speci men Type: BLOOD SPECIMEN Ordering Facility: [facility] Address: [address] [place] [address] Performed By: #### 5 8410-2 #### [facility] CLIA [id number] [address] [place] [address] [place] Platelets (Bld) [#/Vol] 297 10*3/uL Normal 150-400 [facility] Comment on above: Order Comment: Speci men Type: BLOOD SPECIMEN Ordering Facility: [facility] Address: [address] [place] [id number] Performed By: #### 5 8410-2 #### [facility] CLIA [id number] [address] [place] [address] [place] RBC (Bld) [#/Vol] 3.93 10*6/uL Normal 3.90-5.20 [facility] Comment on above: Order Comment: Speci men Type: BLOOD SPECIMEN Ordering Facility: [facility] Address: [address] [place] [address] Performed By: #### 5 8410-2 #### [facility] CLIA [id number] [address] [place] [address] [place] WBC (Bld) [#/Vol] 6.82 10*3/uL Normal 3.70-11.00 [facility] Comment on above: Order Comment: Speci men Type: BLOOD SPECIMEN Ordering Facility: [facility] Address: [address] [place] [address] Performed By: #### 5 8410-2 #### [facility] CLIA [id number] [place] CNOVon 08-31-2023 CNOV Office Visit ([id number] ) ----- SHAZIA CHOU ([id number]) 1990 F Date Time Provider Department 08/31/23 11:00 AM SONIDO GROSSMAN [id number] During your visit today, we recorded the following information about you: Temperature Pulse Blood pressure Weight 97.9 degrees 78/minute 123/88 89.4 kg Height 1.702 m [facility] [place] 08/31/2023 11:14 AM Signed What is the [...] Bowels: diarrhea Wound: Temperature: No Drains: No Sonido Grossman MD 08/31/2023 3:01 PM Signed New Patient Consult REASON FOR VISIT Self referred - pancreas cyst History of Present Illness: Shazia Chou is a 32 year old female with 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 xbdyrlkbqdql-kkm-vbey-FA- vit K (BARIATRIC MULTIVITAMINS) 45 mg iron- 800 [...] measure: Med (more content not included)... Normal [facility] Comprehensive metabolic 2000 panelon 08-31-2023 Albumin [Mass/Vol] 4.4 g/dL Normal 3.9-4.9 [facility] Comment on above: Order Comment: Speci men Type: BLOOD SPECIMEN Ordering Facility: [facility] Address: [address] [place] [address] [place] [address] Performed By: #### L IPNF, #### [facility] CLIA [id number] [address] [place] [address] [place] ALP [Catalytic activity/Vol] 75 U/L Normal 34-123 [facility] Comment on above: Order Comment: Speci men Type: BLOOD SPECIMEN Ordering Facility: [facility] Address: [address] [place] [address] Performed By: #### L IPNF, #### [facility] CLIA [id number] [address] [place] [address] [place] ALT [Catalytic activity/Vol] 16 U/L Normal 7-38 [facility] Comment on above: Order Comment: Speci men Type: BLOOD SPECIMEN Ordering Facility: [facility] Address: [address] [place] [address] Performed By: #### L IPNF, #### [facility] CLIA [id number] [address] [place] [address] [place] Anion gap [Moles/Vol] 11 mmol/L Normal 9-18 [facility] Comment on above: Order Comment: Speci men Type: BLOOD SPECIMEN Ordering Facility: [facility] Address: [address] [place] [address] Performed By: #### L IPNF, #### [facility] CLIA [id number] [address] [place] [address] [place] AST [Catalytic activity/Vol] 21 U/L Normal 13-35 [facility] Comment on above: Order Comment: Speci men Type: BLOOD SPECIMEN Ordering Facility: [facility] Address: [address] [place] [address] Performed By: #### L IPNF, #### [facility] CLIA [id number] [address] [place] [address] [place] Bilirubin [Mass/Vol] 0.2 mg/dL Normal 0.2-1.3 [facility] Comment on above: Order Comment: Speci men Type: BLOOD SPECIMEN Ordering Facility: [facility] Address: [address] [place], [place] [address] Performed By: #### L IPNF, #### [facility] CLIA [id number] [address] [place] [address] [place] Calcium [Mass/Vol] 9.7 mg/dL Normal 8.5-10.2 [facility] Comment on above: Order Comment: Speci men Type: BLOOD SPECIMEN Ordering Facility: [facility] Address: [address] [place] [address] Performed By: #### L IPNF, #### [facility] CLIA [id number] [address] [place] [address] [place] Chloride [Moles/Vol] 106 mmol/L High 97-105 [facility] Comment on above: Order Comment: Speci men Type: BLOOD SPECIMEN Ordering Facility: [facility] Address: [address] [place] [address] Performed By: #### L IPNF, #### [facility] CLIA [id number] [address] [place] [address] [place] CO2 [Moles/Vol] 25 mmol/L Normal 22-30 [facility] Comment on above: Order Comment: Speci men Type: BLOOD SPECIMEN Ordering Facility: [facility] Address: [address] [place] [address] Performed By: #### L IPNF, #### [facility] CLIA [id number] [address] [place] [address] [place] Creatinine [Mass/Vol] 0.55 mg/dL Low 0.58-0.96 [facility] Comment on above: Order Comment: Speci men Type: BLOOD SPECIMEN Ordering Facility: [facility] Address: [address] [place] [address] Performed By: #### L IPNF, 26900-3 #### [facility] CLIA [id number] [address] [place] [address] [place] Creatinine and Glomerular filtration rate.predicted panel (S/P/Bld) 124 mL/min/1.73m??? Normal >=60 [facility] Comment on above: Order Comment: Speci men Type: BLOOD SPECIMEN Ordering Facility: [facility] Address: [address] [place] [address] Result Comment: Brenda mated Glomerular Filtration Rate [...] reflect actual GFR. Performed By: #### L SONALI, 35030-8 #### [facility] CLIA [id number] [address] [place] [address] [place] Glucose [Mass/Vol] 93 mg/dL Normal 74-99 [facility] Comment on above: Order Comment: Philip birmingham Type: BLOOD SPECIMEN Ordering Facility: [facility] Address: [address] [place] [address] Result Comment: The [place] Diabetes Association (ADA) provides guidance for cutoff [...] Standards of Medical Care in Diabetes 2016, [place] Diabetes Association. Diabetes Care. 2016.39(Suppl 1). Performed By: #### L SONALI, 64642-0 #### [facility] CLIA [id number] [address] [place] [address] [place] Potassium [Moles/Vol] 4.7 mmol/L Normal 3.7-5.1 [facility] Comment on above: Order Comment: Philip birmingham Type: BLOOD SPECIMEN Ordering Facility: [facility] Address: [address] [place] [address] Performed By: #### L IPMARTHA, 72235-9 #### [facility] CLIA [id number] [address] [place] [address] [place] Protein [Mass/Vol] 7.3 g/dL Normal 6.3-8.0 [facility] Comment on above: Order Comment: Philip birmingham Type: BLOOD SPECIMEN Ordering Facility: [facility] Address: [address] [place] [address] Performed By: #### L IPNF, 87538-2 #### [facility] CLIA [id number] [address] [place] [address] [place] Sodium [Moles/Vol] 142 mmol/L Normal 136-144 [facility] Comment on above: Order Comment: Speci men Type: BLOOD SPECIMEN Ordering Facility: [facility] Address: [address] [place] [address] Performed By: #### L IPNF, 46821-0 #### [facility] CLIA [id number] [address] [place] [address] [place] Urea nitrogen [Mass/Vol] 9 mg/dL Normal 7-21 [facility] Comment on above: Order Comment: Speci men Type: BLOOD SPECIMEN Ordering Facility: [facility] Address: [address] [place] [address] Performed By: #### L IPNF, 94116-0 #### [facility] CLIA [id number] [address] [place] [address] [place] HISTORY PHYSICALon HISTORY PHYSICAL HNO ID: [id number] Author: Sonido Grossman MD Service: ? 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 nxsjokbooevg-fcf-ssao-FA- vit K (BARIATRIC MULTIVITAMINS) 45 mg iron- 800 [...] or problem (more content not included)... Normal [facility] LIPID PANEL, NONFASTINGon Cholesterol [Mass/Vol] 154 mg/dL Normal <200 [facility] Comment on above: Order Comment: Speci men Type: BLOOD SPECIMEN Ordering Facility: [facility] Address: [address] [place] [address] Result Comment: <200 mg/dL, Desirable 200-239 mg/dL, Borderline high >239 mg/dL, High Performed By: #### L [facility], 849[address]-0 #### [facility] CLIA [id number] HDL CHOLESTEROL, NF 69 mg/dL Normal >39 [facility] Comment on above: Order Comment: Philip valencia Type: BLOOD SPECIMEN Ordering Facility: [facility] Address: [address] [place] [address] Result Comment: 40-5 9 mg/dL, Acceptable >59 mg/dL, High: Negative risk factor for coronary heart disease <40 mg/dL, Low: Positive risk factor for coronary heart disease Performed By: #### L IPNF, 55640-8 #### [facility] CLIA [id number] LDL CHOLESTEROL, NF 66 mg/dL Normal <100 [facility] Comment on above: Order Comment: Philip birmingham Type: BLOOD SPECIMEN Ordering Facility: [facility] Address: [address] [place] [address] Result Comment: <100 mg/dL, Optimal 100-129 mg/dL, Near optimal/above optimal 130-159 mg/dL, Borderline high 160-189 mg/dL, High >189 mg/dL, Very high Secondary prevention optimal LDL Cholesterol levels are recommended to be < 70 mg/dL Performed By: #### L IPNF, 44750-7 #### [facility] CLIA [id number] [address] LDL/HDL RATIO, NF 0.96 mg/dL Normal <2.54 [facility] Comment on above: Order Comment: Cecilarielle birmingham Type: BLOOD SPECIMEN Ordering Facility: [facility] Address: [address] [place] [address] Result Comment: Eric kasper: 1. National Cholesterol Education Program ATP III Guideline At-A-Glance Quick Desk Reference: National Heart, Lung, and Blood [place]. National Institutes of Health. 2001: NIH Publication No. 01-3305. 2. An International Atherosclerosis Society position paper: global recommendations for the management of dyslipidemia: executive summary, Atherosclerosis. 2014: 232(2):410-413. Performed By: #### L IPNF, 69875-5 #### [facility] CLIA [id number] NON HDL CHOL, NF 85 mg/dL Normal <130 [facility] Comment on above: Order Comment: Speci men Type: BLOOD SPECIMEN Ordering Facility: [facility] Address: [address] [place] [address] Result Comment: <130 mg/dL, Optimal 130-159 mg/dL, Near optimal/above optimal 160-189 mg/dL, Borderline high 190-219 mg/dL, High >219 mg/dL, Very high Secondary prevention optimal non HDL Cholesterol levels are recommended to be <100 mg/dL Performed By: #### L IPNF, 03702-9 #### [facility] CLIA [id number] [address] [place] [address] [place] T CHOL/HDL RATIO NF 2.23 mg/dL Normal <5.10 [facility] Comment on above: Order Comment: Speci men Type: BLOOD SPECIMEN Ordering Facility: [facility] Address: [address] [place] [address] Performed By: #### L IPNF, #### [facility] CLIA [id number] [address] [place] [address] [place] TRIGLYCERIDES, NF 96 mg/dL Normal <150 [facility] Comment on above: Order Comment: Speci men Type: BLOOD SPECIMEN Ordering Facility: [facility] Address: [address] [place] [address] Result Comment: <150 mg/dL, Normal 150-199 mg/dL, Borderline high 200-499 mg/dL, High >499 mg/dL, Very high Performed By: #### L IPNF, #### [facility] CLIA [id number] [address] [place] [address] [place] VLDL CHOLESTEROL, NF 19 mg/dL Normal <30 [facility] Comment on above: Order Comment: Speci men Type: BLOOD SPECIMEN Ordering Facility: [facility] Address: [address] [place] [address] Performed By: #### L IPNF, #### [facility] CLIA [id number] [address] [place] [address] [place] PHOSPHATIDYLETHANOL (PETH)on 08-31-2023 EER PETH See Note Normal [facility] Comment on above: Order Comment: Speci men Type: BLOOD SPECIMEN Ordering Facility: [facility] Address: [address] [place] [address] Result Comment: Auth orized individuals can access the [facility] Enhanced Report using the following link: [email or web address] Performed By: #### P ETH #### [facility] CLIA [id number] [address] [place] [address] PETH 16:0/18.2 (PLPETH) 244 ng/mL [facility] Comment on above: Order Comment: Speci men Type: BLOOD SPECIMEN Ordering Facility: [facility] Address: [address] [place] [address] Result Comment: Refe rence ranges are not well established. Performed By: #### P ETH #### [facility] [id number] [address] [place] [address] PETH 16:0/18:1 (POPETH) 169 ng/mL [facility] Comment on above: Order Comment: Speci men Type: BLOOD SPECIMEN Ordering Facility: [facility] Address: [address] [place] [address] Result Comment: PEth 16:0/18:1 (POPEth) Less than 10 ng/mL............Not detected Less than 20 ng/mL............Abstinence or light alcohol consumption 20 - 200 ng/mL................Moderate alcohol consumption Greater than 200 ng/mL........Heavy alcohol consumption or chronic alcohol use (Reference: Sophie Gonzalez and Crystal Zabala 2018 J. Forensic Sci) Performed By: #### P ETH #### [facility] CLIA [id number] [address] [place] [address] PETH INTERPRETATION See Note Normal [facility] Comment on above: Order Comment: Speci men Type: BLOOD SPECIMEN Ordering Facility: [facility] Address: [address] [place] [address] Result Comment: Phos phatidylethanol (PEth) is a [...] developed and its performance characteristics determined by [facility]. It has not been cleared or approved by the U.S. Food and Drug Administration. This test was performed in a CLIA-certified laboratory and is intended for clinical purposes. Performed By: [facility] [address] [place] [address] Director Pediatric: Osmar Salcido MD, PhD CLIA Number: [id number] Performed By: #### P ETH #### [facility] CLIA [id number] [address] [place] [address] Ernesto 08-21-2023 IRENEN Telephone ([id number]) ----- SHAZIA CHOU ([id number]) 1990 F Date Time Provider Department 08/21/23 SONIDO GROSSMAN [id number] During your visit today, we recorded the following information about you: Sindy Ruvalcaba RN 08/21/2023 10:19 AM Signed Called made to [facility] to push MRI from 08/20 through to [...] 40 mg by mouth once daily. - zkoyifqczwwm-vty-gnvt-FA- vit K (BARIATRIC MULTIVITAMINS) 45 mg iron- 800 [...] Status:Closed by SINDY RUVALCABA on 08/21/23 Normal [facility] MRI ABDOMEN W WO CONTRAST MR CPon [...] Troy Bond MD 08/20/23 Final result Normal [facility] Vitamin Aon 08-16-2023 Interpretation Normal Normal [facility] in [facility] Comment on above: Result Comment: (NOT E) This test was developed and its performance characteristics determined by [facility]. It has not been cleared or approved by the US Food and Drug Administration. This test was performed in a CLIA certified laboratory and is intended for clinical purposes. Performed By: [facility] [address] [place] [address] Director Pediatric: Osmar Salcido MD, PhD CLIA Number: [id number] Performed By: #### P THNCA, FEBC, FERI, GLYHGB, VD25 #### [address] [address] Scribing Machine Operator: Harpal Adair MD #### ARIAN OLIVOTB1, AZN #### [facility] [address] [place] [address] Scribing Machine Operator: Patricio Zuñiga MD #### CP, MG, CDP #### [address] [place] [id number] Scribing Machine Operator: Hilton Armenta MD Retinol (Vitamin A) 0.60 mg/L Normal 0.30-1.20 [facility] Comment on above: Performed By: #### P THNCA, FEBC, FERI, GLYHGB, VD25 #### [address] [address] Scribing Machine Operator: Harpal Adair MD #### TYREE OLIVO1, AZN #### [facility] [address], [place] [id number] Scribing Machine Operator: Patricio Zuñiga MD #### ANGEL, MG, CDP #### [address] [place] [address] Scribing Machine Operator: Hilton Armenta MD Retinyl Palmitate <0.02 Normal 0.00-0.10 [facility] Comment on above: Performed By: #### P THNCA, FEBC, FERI, GLYHGB, VD25 #### [address] [address] Scribing Machine Operator: Harpal Adair MD #### ARIAN OLIVOTB1, AZN #### [facility] [address], [place] [id number] Scribing Machine Operator: Patricio Zuñiga MD #### CP, MG, CDP #### [facility] [address] [place] [address] Scribing Machine Operator: Hilton Armenta MD Alanine aminotransferase [En zymatic activity/volume] in Serum or PlasmaOrdered By: Yoli Norris on 08-15-2023 ALT [Catalytic activity/Vol] 18 U/L 7-52 [facility] Albumin [Mass/volume] in Ser um or Plasma by Bromocresol green (BCG) dye binding methoOrdered By: Yoli Norris on 08-15-2023 Albumin BCG dye [Mass/Vol] 4.6 g/dL 3.5-5.7 [facility] Alkaline phosphatase [Enzyma tic activity/volume] in Serum or PlasmaOrdered By: Yoli Norris on 08-15-2023 ALP [Catalytic activity/Vol] 77 U/L 34-104 [facility] Aspartate aminotransferase [ Enzymatic activity/volume] in Serum or PlasmaOrdered By: Yoli Norris on 08-15-2023 AST [Catalytic activity/Vol] 18 U/L 13-39 [facility] Basic Metabolic Panelon 12-0 Anion gap [Moles/Vol] 12.7 mmol/L Normal 6.0-15.0 [facility] Comment on above: Performed By: #### H EPATIC, BMP, LIPASE, CBC #### [facility] [address] Calcium [Mass/Vol] 9.8 mg/dL Normal 8.6-10.3 [facility] Comment on above: Performed By: #### H EPATIC, BMP, LIPASE, CBC #### [facility] [address] [place] [address] [place] Chloride [Moles/Vol] 109 mmol/L High 98-107 [facility] Comment on above: Performed By: #### H EPATIC, BMP, LIPASE, CBC #### [facility] [address] [place] [id number] [facility] CO2 [Moles/Vol] 21.8 mmol/L Normal 21.0-31.[address] [facility] Comment on above: Performed By: #### H EPATIC, BMP, LIPASE, CBC #### [facility] [address] [place] [address] [place] Creatinine [Mass/Vol] 0.76 mg/dL Normal 0.60-1.20 [facility] Comment on above: Performed By: #### H EPATIC, BMP, LIPASE, CBC #### [facility] [address] [place] [address] [place] Creatinine Clr Calc Pharmacy 117.62 [facility] Comment on above: Performed By: #### H EPATIC, BMP, LIPASE, CBC #### [facility] [address] [place] [address] [place] GFR/1.73 sq M.predicted MDRD (S/P/Bld) [Vol rate/Area] mL/min/{1.73_m2} [facility] Comment on above: Performed By: #### H EPATIC, BMP, LIPASE, CBC #### [address] Glucose [Mass/Vol] 85 mg/dL Normal 70-100 [facility] Comment on above: Result Comment: [facility] Glucose Reference Range is dependent on time and content of last meal. Glucose of more than 200 mg/dL in a nonstressed, ambulatory subject supports the diagnosis of Diabetes Mellitus. ADA recommended reference range Performed By: #### H EPATIC, BMP, LIPASE, CBC #### [facility] [address] Potassium [Moles/Vol] 3.5 mmol/L Normal 3.5-5.1 [facility] Comment on above: Performed By: #### H EPATIC, BMP, LIPASE, CBC #### [facility] [address] [place] [address] [place] Sodium [Moles/Vol] 140 mmol/L Normal 136-145 [facility] Comment on above: Performed By: #### H EPATIC, BMP, LIPASE, CBC #### [facility] [address] [place] [address] [place] Urea nitrogen [Mass/Vol] 11 mg/dL Normal 7-25 [facility] Comment on above: Performed By: #### H EPATIC, BMP, LIPASE, CBC #### [place] [id number] [place] Basophils Auto (Bld) [#/Vol] Ordered By: Yoli Norris on 08-15-2023 Basophils (Bld) [#/Vol] 0.1 10*3/uL 0.0-0.2 [facility] Basophils/100 WBC Auto (Bld) Ordered By: Yoli Norris on 08-15-2023 Basophils/100 WBC (Bld) 0.5 % . [facility] Bilirubin Test strip Ql (U)O rdered By: Yoli Norris on 08-15-2023 Bilirubin Ql (U) Negative Negative [facility] Bilirubin.direct [Mass/volum e] in Serum or PlasmaOrdered By: Yoli Norris on 08-15-2023 Bilirubin.direct [Mass/Vol] 0.00 mg/dL 0.03-0.18 [facility] Comment on above: If the DBIL is less than 0.1, IBIL is not able to becalculated. Bilirubin.total [Mass/volume ] in Serum or PlasmaOrdered By: Yoli Norris on 08-15-2023 Bilirubin [Mass/Vol] 0.3 mg/dL 0.3-1.0 [facility] CT abdomen pelvis w conon CT abdomen pelvis w con [facility] [place] [address] CT Scan Report Signed Patient: Shazia Chou MR#: [id number] : 1990 Acct:[id number] Age/Sex: 32 / F ADM Date: 08/15/23 Loc: ER Room: Type: [facility] ER Attending Dr: Copies to: Yoli Norris [...] Gaye Peraza M.D.08/15/2023 1:03 PM Dictation Location: [place] [address] Transcribed By: MARKY 08/15/23 1303 Dictated By: Gaye Peraza MD 08/15/23 1256 Signed By: 08/15/23 1303 Normal [facility] Calcium [Mass/volume] in Ser um or PlasmaOrdered By: Yoli Norris on 08-15-2023 Calcium [Mass/Vol] 9.8 mg/dL 8.6-10.3 [facility] Carbon dioxide, total [Moles /volume] in Serum or PlasmaOrdered By: Yoli Norris on 08-15-2023 CO2 [Moles/Vol] 21.8 mmol/L 21.0-31.[address] [facility] Chloride [Moles/volume] in S tushar or PlasmaOrdered By: Yoli Norris on 08-15-2023 Chloride [Moles/Vol] 109 mmol/L 98-107 [facility] Color Auto (U)Ordered By: Maribel hammalena Jr on 08-15-2023 Color (U) Yellow Yellow [facility] Complete Blood Count Auto Di ffon 08-15-2023 Basophils (Bld) [#/Vol] 0.1 10*3/uL Normal 0.0-0.2 [facility] Comment on above: Result Comment: PERF ORMED BY: [place] [address] PATHOLOGIST HAND ENDBAND CUTTER JOHNIE BOSS M.D. Performed By: #### H EPATIC, BMP, LIPASE, CBC #### [address] Basophils/100 WBC (Bld) 0.5 % Normal . [facility] Comment on above: Performed By: #### H EPATIC, BMP, LIPASE, CBC #### [facility] [address] [place] [address] Eosinophils (Bld) [#/Vol] 0.2 10*3/uL Normal 0.0-0.45 [facility] Comment on above: Performed By: #### H EPATIC, BMP, LIPASE, CBC #### [address] Eosinophils/100 WBC (Bld) 2.1 % Normal . [facility] Comment on above: Performed By: #### H EPATIC, BMP, LIPASE, CBC #### [facility] [address] [place] [address] Erythrocyte distribution width (RBC) [Ratio] 15.1 % Normal 11.9-15.3 [facility] Comment on above: Performed By: #### H EPATIC, BMP, LIPASE, CBC #### [facility] [address] [place] [address] Hematocrit (Bld) [Volume fraction] 37.2 % Normal 34.0-46.4 [facility] Comment on above: Performed By: #### H EPATIC, BMP, LIPASE, CBC #### [address] Hemoglobin (Bld) [Mass/Vol] 12.2 g/dL Normal 11.8-15.4 [facility] Comment on above: Performed By: #### H EPATIC, BMP, LIPASE, CBC #### [address] Lymphocytes (Bld) [#/Vol] 2.0 10*3/uL Normal 1.00-4.8 [facility] Comment on above: Performed By: #### H EPATIC, BMP, LIPASE, CBC #### [address] Lymphocytes/100 WBC (Bld) 17.8 % Normal . [facility] Comment on above: Performed By: #### H EPATIC, BMP, LIPASE, CBC #### [address] MCH (RBC) [Entitic mass] 30.2 pg Normal 24.7-34.3 [facility] Comment on above: Performed By: #### H EPATIC, BMP, LIPASE, CBC #### [address] MCV (RBC) [Entitic vol] 92.4 fL Normal 80-100 [facility] Comment on above: Performed By: #### H EPATIC, BMP, LIPASE, CBC #### [address] Mean Corpuscular HGB Conc 32.7 g/dL Normal 32.0-35.0 [facility] Comment on above: Performed By: #### H EPATIC, BMP, LIPASE, CBC #### [address] Monocytes (Bld) [#/Vol] 0.6 10*3/uL Normal 0.0-0.8 [facility] Comment on above: Performed By: #### H EPATIC, BMP, LIPASE, CBC #### [address] Monocytes/100 WBC (Bld) 15.46 % Normal 0.00-20.00 [facility] Comment on above: Performed By: #### H EPATIC, BMP, LIPASE, CBC #### [address] Monocytes/100 WBC (Bld) 5.0 % Normal . [facility] Comment on above: Performed By: #### H EPATIC, BMP, LIPASE, CBC #### [address] Neutrophils (Bld) [#/Vol] 8.4 10*3/uL High 1.8-7.7 [facility] Comment on above: Performed By: #### H EPATIC, BMP, LIPASE, CBC #### [address] Neutrophils/100 WBC (Bld) 74.6 % Normal . [facility] Comment on above: Performed By: #### H EPATIC, BMP, LIPASE, CBC #### [address] NRBC% 0.0 /100{WBC} Normal 0-0.5 [facility] Comment on above: Performed By: #### H EPATIC, BMP, LIPASE, CBC #### [address] Platelet mean volume (Bld) [Entitic vol] 9.2 fL Normal 6.3-10.7 [facility] Comment on above: Performed By: #### H EPATIC, BMP, LIPASE, CBC #### [address] Platelets (Bld) [#/Vol] 321 10*3/uL Normal 150-450 [facility] Comment on above: Performed By: #### H EPATIC, BMP, LIPASE, CBC #### [address] RBC (Bld) [#/Vol] 4.03 10*6/uL Normal 3.60-5.00 [facility] Comment on above: Performed By: #### H EPATIC, BMP, LIPASE, CBC #### [address] [place] [address] [place] WBC (Bld) [#/Vol] 11.3 10*3/uL Normal 3.8-11.6 [facility] Comment on above: Performed By: #### H EPATIC, BMP, LIPASE, CBC #### [facility] [address] [place] [id number] [place] Creatinine [Mass/volume] in Serum or PlasmaOrdered By: Yoli Norris on 08-15-2023 Creatinine [Mass/Vol] 0.76 mg/dL 0.60-1.20 [facility] Eosinophils Auto (Bld) [#/Vo l]Ordered By: Yoli Norris on 08-15-2023 Eosinophils (Bld) [#/Vol] 0.2 10*3/uL 0.0-0.45 [facility] Eosinophils/100 WBC Auto (Bl d)Ordered By: Yoli Norris on 08-15-2023 Eosinophils/100 WBC (Bld) 2.1 % . [facility] Erythrocyte distribution wid th Auto (RBC) [Ratio]Ordered By: Yoli Norris on 08-15-2023 Erythrocyte distribution width (RBC) [Ratio] 15.1 % 11.9-15.3 [facility] Globulin Calc (S) [Mass/Vol] Ordered By: Yoli Norris on 08-15-2023 Globulin (S) [Mass/Vol] 3.2 g/dL [facility] Glucose [Mass/volume] in Ser um or PlasmaOrdered By: Yoli Norris on 08-15-2023 Glucose [Mass/Vol] 85 mg/dL 70-100 [facility] Comment on above: ADA recommended refe rence rangeRandom Glucose Reference Range is dependent on time and content of last meal. Glucose of more than 200 mg/dL in a nonstressed, ambulatory subject supports the diagnosis of Diabetes Mellitus. HCG ( test) IAkarina d Ql (U)Ordered By: Yoli Norris on 08-15-2023 HCG ( test) Ql (U) Negative [facility] HCG,Urineon 08-15-2023 Beta HCG ( test) Ql (U) Negative Normal [facility] Comment on above: Order Comment: Name Collection Type:: Clean-Voided Midstream Result Comment: PERF ORMED BY: [place] [address] PATHOLOGIST HAND ENDBAND CUTTER JOHNIE BOSS M.D. Performed By: #### U [place] [facility] #### [address] Hematocrit Auto (Bld) [Volum e fraction]Ordered By: Yoli Norris on 08-15-2023 Hematocrit (Bld) [Volume fraction] 37.2 % 34.0-46.4 [facility] Hemoglobin [Mass/volume] in BloodOrdered By: Yoli Norris on 08-15-2023 Hemoglobin (Bld) [Mass/Vol] 12.2 g/dL 11.8-15.4 [facility] Hepatic Panelon 08-15-2023 Albumin [Mass/Vol] 4.6 g/dL Normal 3.5-5.7 [facility] Comment on above: Performed By: #### H EPATIC, BMP, LIPASE, CBC #### [address] Albumin/Globulin [Mass ratio] 1.4 {ratio} Normal [facility] Comment on above: Performed By: #### H EPATIC, BMP, LIPASE, CBC #### [address] ALP [Catalytic activity/Vol] 77 U/L Normal 34-104 [facility] Comment on above: Performed By: #### H EPATIC, BMP, LIPASE, CBC #### [address] ALT [Catalytic activity/Vol] 18 U/L Normal 7-52 [facility] Comment on above: Performed By: #### H EPATIC, BMP, LIPASE, CBC #### [address] AST [Catalytic activity/Vol] 18 U/L Normal 13-39 [facility] Comment on above: Performed By: #### H EPATIC, BMP, LIPASE, CBC #### [address] Bilirubin [Mass/Vol] 0.3 mg/dL Normal 0.3-1.0 [facility] Comment on above: Performed By: #### H EPATIC, BMP, LIPASE, CBC #### [facility] [address] Bilirubin,Indirect 0.3 mg/dL Normal [facility] Comment on above: Performed By: #### H EPATIC, BMP, LIPASE, CBC #### [facility] [address] [place] [address] Bilirubin.indirect [Mass/Vol] 0.00 mg/dL Low 0.03-0.18 [facility] Comment on above: Result Comment: If t he DBIL is less than 0.1, IBIL is not able to be calculated. Performed By: #### H EPATIC, BMP, LIPASE, CBC #### [address] Globulin (S) [Mass/Vol] 3.2 g/dL Normal [facility] Comment on above: Performed By: #### H EPATIC, BMP, LIPASE, CBC #### [facility] [address] [place] [address] Protein [Mass/Vol] 7.8 g/dL Normal 6.4-8.9 [facility] Comment on above: Performed By: #### H EPATIC, BMP, LIPASE, CBC #### [address] Ketones Auto test strip (U) [Mass/Vol]Ordered By: Yoli Norris on 08-15-2023 Ketones (U) [Mass/Vol] Negative Negative [facility] Leukocytes [#/volume] correc caitlin for nucleated erythrocytes in Blood by Automated counOrdered By: Yloi Norris on 08-15-2023 WBC corrected for nucl RBC Auto (Bld) [#/Vol] 11.3 10*3/uL 3.8-11.6 [facility] Lipaseon 08-15-2023 Lipase [Catalytic activity/Vol] 32.0 U/L Normal 11.0-82.0 [facility] Comment on above: Result Comment: PERF ORMED BY: [address] [place] [address] PATHOLOGIST HAND ENDBAND CUTTER JOHNIE BOSS M.D. Performed By: #### H EPATIC, BMP, LIPASE, CBC #### [address] Lipase [Enzymatic activity/v olume] in Serum or PlasmaOrdered By: Yoli Norris on 08-15-2023 Lipase [Catalytic activity/Vol] 32.0 U/L 11.0-82.0 [facility] Lymphocytes Auto (Bld) [#/Vo l]Ordered By: Yoli Norris on 08-15-2023 Lymphocytes (Bld) [#/Vol] 2.0 10*3/uL 1.00-4.8 [facility] Lymphocytes/100 WBC Auto (Bl d)Ordered By: Yoli Norris on 08-15-2023 Lymphocytes/100 WBC (Bld) 17.8 % . [facility] MCH Auto (RBC) [Entitic mass ]Ordered By: Yoli Norris on 08-15-2023 MCH (RBC) [Entitic mass] 30.2 pg 24.7-34.3 [facility] MCHC Auto (RBC) [Mass/Vol]Or dered By: Yoli Norris on 08-15-2023 MCHC (RBC) [Mass/Vol] 32.7 g/dL 32.0-35.0 [facility] MCV Auto (RBC) [Entitic vol] Ordered By: Yoli Norris on 08-15-2023 MCV (RBC) [Entitic vol] 92.4 fL 80-100 [facility] Monocyte distribution width [Entitic volume] in Blood by AutomatedOrdered By: Yoli Norris on 08-15-2023 Monocyte distribution width Auto (Bld) [Entitic vol] 15.46 % 0.00-20.00 [facility] Monocytes Auto (Bld) [#/Vol] Ordered By: Yoli Norris on 08-15-2023 Monocytes (Bld) [#/Vol] 0.6 10*3/uL 0.0-0.8 [facility] Monocytes/100 WBC Auto (Bld) Ordered By: Yoli Norris on 08-15-2023 Monocytes/100 WBC (Bld) 5.0 % . [facility] Neutrophils Auto (Bld) [#/Vo l]Ordered By: Yoli Norris on 08-15-2023 Neutrophils (Bld) [#/Vol] 8.4 10*3/uL 1.8-7.7 [facility] Neutrophils/100 WBC Auto (Bl d)Ordered By: Yoli Norris on 08-15-2023 Neutrophils/100 WBC (Bld) 74.6 % . [facility] Nitrite Test strip Ql (U)Ord ered By: Yoli Norris on 08-15-2023 Nitrite Ql (U) Negative Negative [facility] No Panel InformationOrdered By: Yoli Norris on 08-15-2023 Estimated GFR (CKD-EPI) > 60.0 mL/Min [facility] Creatinine Clearance (Chem 117.62 [facility] Nucleated erythrocytes [Pres ence] in Blood by Automated countOrdered By: Yoli Norris on 08-15-2023 Nucleated RBC Auto Ql (Bld) 0.0 /100{WBC} 0-0.5 [facility] Platelet mean volume Auto (B ld) [Entitic vol]Ordered By: Yoli Norris on 08-15-2023 Platelet mean volume (Bld) [Entitic vol] 9.2 fL 6.3-10.7 [facility] Platelets Auto (Bld) [#/Vol] Ordered By: Yoli Norris on 08-15-2023 Platelets (Bld) [#/Vol] 321 10*3/uL 150-450 [facility] Potassium [Moles/volume] in Serum or PlasmaOrdered By: Yoli Norris on 08-15-2023 Potassium [Moles/Vol] 3.5 mmol/L 3.5-5.1 [facility] Protein Auto test strip (U) [Mass/Vol]Ordered By: Yoli Norris on 08-15-2023 Protein (U) [Mass/Vol] Negative Negative [facility] Protein [Mass/volume] in Ser um or PlasmaOrdered By: Yoli Norris on 08-15-2023 Protein [Mass/Vol] 7.8 g/dL 6.4-8.9 [facility] RBC Auto (Bld) [#/Vol]Ordere d By: Yoli Norris on 12-02-2023 RBC (Bld) [#/Vol] 4.03 10*6/uL 3.60-5.00 [facility] Serum or plasma albumin/glob ulin mass ratioOrdered By: Yoli Norris on 08-15-2023 Albumin/Globulin [Mass ratio] 1.4 {ratio} [facility] Serum or plasma anion gap de terminationOrdered By: Yoli Norris on 08-15-2023 Anion gap [Moles/Vol] 12.7 mmol/L 6.0-15.0 [facility] Serum or plasma non-glucuron idated bilirubin measurement (mass/volume)Ordered By: Yoli Norris on 08-15-2023 Bilirubin.indirect [Mass/Vol] 0.3 mg/dL [facility] Sodium [Moles/volume] in Ser um or PlasmaOrdered By: Yoli Norris on 08-15-2023 Sodium [Moles/Vol] 140 mmol/L 136-145 [facility] Specific gravity Auto test s trip (U) [Rel density]Ordered By: Yoli Norris on 08-15-2023 Specific gravity (U) [Rel density] 1.007 1.001-1.03 0 [facility] Urea nitrogen [Mass/volume] in Serum or PlasmaOrdered By: Yoli Norris on 08-15-2023 Urea nitrogen [Mass/Vol] 11 mg/dL 7-25 [facility] Urinalysison 08-15-2023 Appearance (U) Clear Normal Clear [facility] Comment on above: Order Comment: Name Collection Type:: Clean-Voided Midstream Performed By: #### U A UHCG #### [facility] [address] Bilirubin,Urine Negative Normal Negative [facility] Comment on above: Order Comment: Name Collection Type:: Clean-Voided Midstream Performed By: #### U A UHCG #### [facility] [address] [place] [address] [place] Color (U) Yellow Normal Yellow [facility] Comment on above: Order Comment: Name Collection Type:: Clean-Voided Midstream Performed By: #### U A UHCG #### [facility] [address] [place] [address] [place] Glucose Ql (U) Normal Normal Normal [facility] Comment on above: Order Comment: Name Collection Type:: Clean-Voided Midstream Performed By: #### U A, UHCG #### [address] Ketones Ql (U) Negative Normal Negative [facility] Comment on above: Order Comment: Name Collection Type:: Clean-Voided Midstream Performed By: #### U A, UHCG #### [address] Leukocyte esterase Test strip Ql (U) Negative Normal Negative [facility] Comment on above: Order Comment: Name Collection Type:: Clean-Voided Midstream Performed By: #### U A, UHCG #### [address] Nitrite,Urine Negative Normal Negative [facility] Comment on above: Order Comment: Name Collection Type:: Clean-Voided Midstream Performed By: #### U A, UHCG #### [address] Occult Blood,Urine Negative Normal Negative [facility] Comment on above: Order Comment: Name Collection Type:: Clean-Voided Midstream Performed By: #### U A, UHCG #### [address] pH (U) 8.0 [pH] Normal 5.0-9.0 [facility] Comment on above: Order Comment: Name Collection Type:: Clean-Voided Midstream Performed By: #### U A, UHCG #### [facility] [address] [place] [address] [place] Protein,Urine Negative Normal Negative [facility] Comment on above: Order Comment: Name Collection Type:: Clean-Voided Midstream Performed By: #### U A, UHCG #### [address] Specificy [employer],Urine 1.007 Normal 1.001-1.03 0 [facility] Comment on above: Order Comment: Name Collection Type:: Clean-Voided Midstream Performed By: #### U A, UHCG #### [facility] [address] Urobilinogen,Urine Normal Normal Normal [facility] Comment on above: Order Comment: Name Collection Type:: Clean-Voided Midstream Performed By: #### U A, UHCG #### [facility] [address] Urine clarity by refractomet ry automatedOrdered By: Yoli Norris on 08-15-2023 Clarity Refractometry automated (U) Clear Clear [facility] Urine glucose measurement by automated test strip (mass/volume)Ordered By: Yoli Norris on 08-15-2023 Glucose Auto test strip (U) [Mass/Vol] Normal mg/dL Normal [facility] Urine hemoglobin detection b y automated test stripOrdered By: Yoli Norris on 08-15-2023 Hemoglobin Auto test strip Ql (U) Negative Negative [facility] Urine leukocyte esterase det ection by automated test stripOrdered By: Yoli Norris on 08-15-2023 Leukocyte esterase Auto test strip Ql (U) Negative Negative [facility] Urobilinogen Auto test strip (U) [Mass/Vol]Ordered By: Yoli Norris on 08-15-2023 Urobilinogen (U) [Mass/Vol] Normal mg/dL Normal [facility] Vitamin B1on 08-15-2023 Vitamin B1 145 nmol/L Normal 70-180 [facility] Comment on above: Result Comment: (NOT [...] developed and its performance characteristics determined by [employer]. It has not been cleared or approved by the [place] Food and Drug Administration. This test was performed in a CLIA certified laboratory and is intended for clinical purposes. Performed By: [employer] [address] [place] [address] Director Pediatric: Osmar Salcido MD, PhD CLIA Number: [id number] Performed By: #### P THNCA, FEBC, FERI, GLYHGB, VD25 #### [facility] [address] [place] [address] Scribing Machine Operator: Harpal Adair MD #### PALLAVI, ARIANTB1, AZN #### [employer] [address] [place] [address] Scribing Machine Operator: Patricio Zuñiga MD #### CP, MG, CDP #### [facility] [address] [place] [address] Scribing Machine Operator: Hilton Armenta MD WBC Auto (Bld) [#/Vol]Ordere d By: Yoli Norris on 08-15-2023 WBC (Bld) [#/Vol] 11.3 10*3/uL 3.8-11.6 [facility] pH Auto test strip (U)Ordere d By: Yoli Norris on 08-15-2023 pH (U) 8.0 [pH] 5.0-9.0 [facility] Zinc, Serumon 08-14-2023 Zinc, Serum 95.3 ug/dL Normal 60.0-120.0 [facility] Comment on above: Result Comment: (NOT [...] developed and its performance characteristics determined by [employer]. It has not been cleared or approved by the [place] Food and Drug Administration. This test was performed in a CLIA certified laboratory and is intended for clinical purposes. Performed By: [employer] [facility] [address] [place] [address] Director Pediatric: Osmar Salcido MD, PhD CLIA Number: [id number] Performed By: #### P THNCA, FEBC, FERI, GLYHGB, VD25 #### [facility] [address] [place] [address] Scribing Machine Operator: Harpal Adair MD #### ARIAN OLIVOTB1, AZN #### [facility] [address] [place], [place] [id number] Scribing Machine Operator: Patricio Zuñiga MD #### ANGEL, MG, CDP #### [address] [place] [address] Scribing Machine Operator: Hilton Armenta MD B12/Folate Panelon 3 Folic Acid >20.0 Normal >4.8 [facility] Comment on above: Performed By: #### P THNCA, FEBC, FERI, GLYHGB, VD25 #### [address] [address] Scribing Machine Operator: Harpal Adair MD #### AGNES OLIVO, AZN #### [facility] [address], [place] [id number] Scribing Machine Operator: Patricio Zuñiga MD #### ANGEL, MG, CDP #### [address] [place] [address] Scribing Machine Operator: Hilton Armenta MD Cobalamin (Vitamin B12) [Mass/Vol] 632 pg/mL Normal 232-1247 [facility] Comment on above: Performed By: #### P THNCA, FEBC, FERI, GLYHGB, VD25 #### [facility] [address] [place] [address] Scribing Machine Operator: Harpal Adair MD #### ARIAN OLIVOTB1, AZN #### [facility] [address], [place] [id number] Scribing Machine Operator: Patricio Zuñiga MD #### CP, MG, CDP #### [address] [place] [address] Scribing Machine Operator: Hilton Armenta MD CBC with Diffon 08-12-2023 Abs. Basophil 0.06 k/uL Normal 0.00-0.20 [facility] Comment on above: Performed By: #### P THNCA, FEBC, FERI, GLYHGB, VD25 #### [address] [address] Scribing Machine Operator: Harpal Adair MD #### AGNES OLIVO, AZN #### [facility] [address] [place] [address] Scribing Machine Operator: Patricio Zuñiga MD #### ANGEL, MG, CDP #### [address] [place] [phone] Scribing Machine Operator: Hilton Armenta MD Abs.Imm.Granulocyte 0.03 k/uL Normal 0.00-0.30 [facility] Comment on above: Performed By: #### P DENNISA, FEBC, FERI, GLYHGB, VD25 #### [address] [address] Scribing Machine Operator: Harpal Adair MD #### AGNES OLIVO, AZN #### [facility] [address] [place] [address] Scribing Machine Operator: Patricio Zuñiga MD #### CP, MG, CDP #### [address] [place] [phone] Scribing Machine Operator: Hilton Armenta MD Abs.Neutrophil (Seg) 6.33 k/uL Normal 1.50-8.10 [facility] Comment on above: Performed By: #### P THNCA, FEBC, FERI, GLYHGB, VD25 #### [address] [address] Scribing Machine Operator: Harpal Adair MD #### ARIAN OLIVOTB1, AZN #### [facility] [address], [place] [id number] Scribing Machine Operator: Patricio Zuñiga MD #### CP, MG, CDP #### [facility] [address] [place], [place] [phone] Scribing Machine Operator: Hilton Armenta MD Basophils/100 WBC (Bld) 1 % Normal 0-2 [facility] Comment on above: Performed By: #### P THNCA, FEBC, FERI, GLYHGB, VD25 #### [address] [phone] Scribing Machine Operator: Harpal Adair MD #### ARIAN OLIVOTB1, AZN #### [facility] [address] [place] [address] Scribing Machine Operator: Patricio Zuñiga MD #### ANGEL, MG, CDP #### [facility] [address] [place] [address] Scribing Machine Operator: Hilton Armenta MD Eosinophils (Bld) [#/Vol] 0.43 10*3/uL Normal 0.00-0.44 [facility] Comment on above: Performed By: #### P THNCA, FEBC, FERI, GLYHGB, VD25 #### [address] [address] Scribing Machine Operator: Harpal Adair MD #### ARIAN OLIVOTB1, AZN #### [facility] [address] [place] [address] Scribing Machine Operator: Patricio Zuñiga MD #### ANGEL, MG, CDP #### [facility] [address] [place], [place] 7478083 Scribing Machine Operator: Hilton Armenta MD Eosinophils/100 WBC (Bld) 5 % High 1-4 [facility] Comment on above: Performed By: #### P THNCA, FEBC, FERI, GLYHGB, VD25 #### [facility] [place] [address] Scribing Machine Operator: Harpal Adair MD #### TYREE OLIVO1, AZN #### [facility] [address], [place] [id number] Scribing Machine Operator: Patricio Zuñiga MD #### ANGEL MG, CDP #### [address] [place], [place] 532[address]83 Scribing Machine Operator: Hilton Armenta MD Erythrocyte distribution width (RBC) [Ratio] 14.9 % High 11.8-14.4 [facility] Comment on above: Performed By: #### P THNCA, FEBC, FERI, GLYHGB, VD25 #### [address] [address] Scribing Machine Operator: Harpal Adair MD #### AGNES OLIVO, AZN #### [facility] [address] [place] [address] Scribing Machine Operator: Patricio Zuñiga MD #### MG ANGEL, CDP #### [address] [place], [place] 9054383 Scribing Machine Operator: Hilton Armenta MD Hematocrit (Bld) [Volume fraction] 38.0 % Normal 36.3-47.1 [facility] Comment on above: Performed By: #### P THNCA, FEBC, FERI, GLYHGB, VD25 #### [address] [address] Scribing Machine Operator: Harpal Adair MD #### AGNES OLIVO, AZN #### [facility] [address], [place] [id number] Scribing Machine Operator: Patricio Zuñiga MD #### ANGEL, MG, CDP #### [address] [place], [place] 7632083 Scribing Machine Operator: Hilton Armenta MD Hemoglobin (Bld) [Mass/Vol] 12.2 g/dL Normal 11.9-15.1 [facility] Comment on above: Performed By: #### P THNCA, FEBC, FERI, GLYHGB, VD25 #### [address] [address] Scribing Machine Operator: Harpal Adair MD #### AGNES OLIVO, AZN #### [facility] [address], [place] [id number] Scribing Machine Operator: Patricio Zuñiga MD #### MG ANGEL, CDP #### [address] [place] [phone] Scribing Machine Operator: Hilton Armenta MD Immature granulocytes/100 WBC (Bld) 0 % Normal 0 [facility] Comment on above: Performed By: #### P THNCA, FEBC, FERI, GLYHGB, VD25 #### [address] [address] Scribing Machine Operator: Harpal Adair MD #### AGNES OLIVO, AZN #### [facility] [address], [place] [id number] Scribing Machine Operator: Patricio Zuñiga MD #### ANGEL, MG, CDP #### [address] [place] [phone] Scribing Machine Operator: Hilton Armenta MD Lymphocytes (Bld) [#/Vol] 1.90 10*3/uL Normal 1.10-3.70 [facility] Comment on above: Performed By: #### P THNCA, FEBC, FERI, GLYHGB, VD25 #### [address] [phone] Scribing Machine Operator: Harpal Adair MD #### AGNES OLIVO, AZN #### [facility] [address], [place] [id number] Scribing Machine Operator: Patricio Zuñiga MD #### MG ANGEL, CDP #### [address] [place], [place] 7332383 Scribing Machine Operator: Hilton Armenta MD Lymphocytes/100 WBC (Bld) 20 % Low 24-43 [facility] Comment on above: Performed By: #### P THNCA, FEBC, FERI, GLYHGB, VD25 #### [place] [address] [place], [place] 8290908 Scribing Machine Operator: Harpal Adair MD #### TYREE OLIVO1, AZN #### [facility] [address], [place] [phone] Scribing Machine Operator: Patricio Zuñiga MD #### MG ANGEL, CDP #### [address] [place] [address] Scribing Machine Operator: Hilton Armenta MD MCH (RBC) [Entitic mass] 29.9 pg Normal 25.2-33.5 [facility] Comment on above: Performed By: #### P THNCA, FEBC, FERI, GLYHGB, VD25 #### [address] [phone] Scribing Machine Operator: Harpal Adair MD #### AGNES OLIVO, AZN #### [facility] [address], [place] [phone] Scribing Machine Operator: Patricio Zuñiga MD #### ANGEL, MG, CDP #### [address] [place] [address] Scribing Machine Operator: Hilton Armenta MD MCHC (RBC) [Mass/Vol] 32.1 g/dL Normal 28.4-34.8 [facility] Comment on above: Performed By: #### P THNCA, FEBC, FERI, GLYHGB, VD25 #### [address] [address] Scribing Machine Operator: Harpal Adair MD #### ARIAN OLIVOTB1, AZN #### [facility] [address], [place] [id number] Scribing Machine Operator: Patricio Zuñiga MD #### ANGEL, MG, CDP #### [address] [place], [place] 4090383 Scribing Machine Operator: Hilton Armenta MD MCV (RBC) [Entitic vol] 93.1 fL Normal 82.6-102.9 [facility] Comment on above: Performed By: #### P THNCA, FEBC, FERI, GLYHGB, VD25 #### [address] [address] Scribing Machine Operator: Harpal Adair MD #### AGNES OLIVO, AZN #### [facility] [address] [place] [address] Scribing Machine Operator: Patricio Zuñiga MD #### ANGEL MG, CDP #### [address] [place], [place] 0278683 Scribing Machine Operator: Hilton Armenta MD Monocytes (Bld) [#/Vol] 0.70 10*3/uL Normal 0.10-1.20 [facility] Comment on above: Performed By: #### P THNCA, FEBC, FERI, GLYHGB, VD25 #### [address] [address] Scribing Machine Operator: Harpal Adair MD #### ARIAN OLIVOTB1, AZN #### [facility] [address], [place] [id number] Scribing Machine Operator: Patricio Zuñiga MD #### CP, MG, CDP #### [facility] [address] [place], [place] 6988783 Scribing Machine Operator: Hilton Armenta MD Monocytes/100 WBC (Bld) 7 % Normal 3-12 [facility] Comment on above: Performed By: #### P THNCA, FEBC, FERI, GLYHGB, VD25 #### [facility] [address] [place] [address] Scribing Machine Operator: Harpal Adair MD #### FARHADS, ARIANTB1, AZN #### [facility] [address], [place] [phone] Scribing Machine Operator: Patricio Zuñiga MD #### ANGEL, MG, CDP #### [address] [place], [place] 5366183 Scribing Machine Operator: Hilton Armenta MD Neutrophil (Seg) 67 % High 36-65 [facility] Comment on above: Performed By: #### P THNCA, FEBC, FERI, GLYHGB, VD25 #### [facility] [address] [place] [address] Scribing Machine Operator: Harpal Adair MD #### ARIAN OLIVOTB1, AZN #### [facility] [address], [place] [id number] Scribing Machine Operator: Patricio Zuñiga MD #### ANGEL, MG, CDP #### [facility] [address] [place] [address] Dr. [place], [place] [phone] Scribing Machine Operator: Hilton Armenta MD NRBC Automated 0.0 per 100 WBC Normal 0.0 [facility] Comment on above: Performed By: #### P THNCA, FEBC, FERI, GLYHGB, VD25 #### [facility] [address] [place] [address] Scribing Machine Operator: Harpal Adair MD #### ARIAN OLIVOTB1, AZN #### [facility] [address] [place] [address] Scribing Machine Operator: Patricio Zuñiga MD #### MG ANGEL, CDP #### [address] [place] [phone] Scribing Machine Operator: Hilton Armenta MD Platelet mean volume (Bld) [Entitic vol] 10.6 fL Normal 8.1-13.5 [facility] Comment on above: Performed By: #### P BAILEY, ALFONSO, FERI, GLYHGB, VD25 #### [address] [phone] Scribing Machine Operator: Harpal Adair MD #### AGNES OLIVO, AZN #### [facility] [address] [place] [address] Scribing Machine Operator: Patricio Zuñiga MD #### MG ANGEL, CDP #### [address] [place] [phone] Scribing Machine Operator: Hilton Armenta MD Platelets (Bld) [#/Vol] 355 10*3/uL Normal 138-453 [facility] Comment on above: Performed By: #### Kina AVALOS, ALFONSO, FERI, GLYHGB, VD25 #### [address] [address] Scribing Machine Operator: Harpal Adair MD #### AGNES OLIVO, AZN #### [facility] [address] [place] [address] Scribing Machine Operator: Patricio Zuñiga MD #### MG ANGEL, CDP #### [address] [place] [phone] Scribing Machine Operator: Hilton Armenta MD RBC (Bld) [#/Vol] 4.08 10*6/uL Normal 3.95-5.11 [facility] Comment on above: Performed By: #### P THNCA, FEBC, FERI, GLYHGB, VD25 #### [facility] [address] [place] [address] Scribing Machine Operator: Harpal Adair MD #### AGNES OLIVO, AZN #### [facility] [address] [place] [address] Scribing Machine Operator: Patricio Zuñiga MD #### ANGEL, MG, CDP #### [address] [place], [place] 9046483 Scribing Machine Operator: Hilton Armenta MD WBC (Bld) [#/Vol] 9.5 10*3/uL Normal 3.5-11.3 [facility] Comment on above: Performed By: #### P THNCA, FEBC, FERI, GLYHGB, VD25 #### [address] [address] Scribing Machine Operator: Harpal Adair MD #### AGNES OLIVO, AZN #### [facility] [address], [place] [id number] Scribing Machine Operator: Patricio Zuñiga MD #### ANGEL, , CDP #### [address] [place], [place] 2257783 Scribing Machine Operator: Hilton Armenta MD Comp Metabolic Profon 2022 Albumin [Mass/Vol] 4.5 g/dL Normal 3.5-5.2 [facility] Comment on above: Performed By: #### P THNCA, FEBC, FERI, GLYHGB, VD25 #### [address] [address] Scribing Machine Operator: Harpal Adair MD #### ARIAN OLIVOTB1, AZN #### [facility] [address] [place] [address] Scribing Machine Operator: Patricio Zuñiga MD #### CP, MG, CDP #### [facility] [address] [place], [place] 6002583 Scribing Machine Operator: Hilton Armenta MD Albumin/Glob Ratio 1.6 Normal 1.0-2.5 [facility] Comment on above: Performed By: #### P THNCA, FEBC, FERI, GLYHGB, VD25 #### [address] [address] Scribing Machine Operator: Harpal Adair MD #### ARIAN OLIVOTB1, AZN #### [facility] [address], [place] [phone] Scribing Machine Operator: Patricio Zuñiga MD #### MG ANGEL, CDP #### [address] [place], [place] 9629883 Scribing Machine Operator: Hilton Armenta MD Alkaline Phos 85 U/L Normal 35-104 [facility] Comment on above: Performed By: #### P THNCA, FEBC, FERI, GLYHGB, VD25 #### [address] [address] Scribing Machine Operator: Harpal Adair MD #### AGNES OLIVO, AZN #### [facility] [address] [place] [address] Scribing Machine Operator: Patricio Zuñiga MD #### ANGEL, MG, CDP #### [facility] [address] [place] [address] [address]. [place], [place] 4689583 Scribing Machine Operator: Hilton Armenta MD ALT [Catalytic activity/Vol] 21 U/L Normal 5-33 [facility] Comment on above: Performed By: #### P THNCA, FEBC, FERI, GLYHGB, VD25 #### [facility] [address] [place] [address] Scribing Machine Operator: Harpal Adair MD #### AGNES OLIVO, AZN #### [facility] [address] [place] [address] Scribing Machine Operator: Patricio Zuñiga MD #### MG ANGEL, CDP #### [address] [place], [place] 2607683 Scribing Machine Operator: Hilton Armenta MD Anion gap [Moles/Vol] 11 mmol/L Normal 9-17 [facility] Comment on above: Performed By: #### P THNCA, FEBC, FERI, GLYHGB, VD25 #### [place] [address] [place] [address] Scribing Machine Operator: Harpal Adair MD #### AGNES OLIVO, AZN #### [facility] [address], [place] [id number] Scribing Machine Operator: Patricio Zuñiga MD #### MG ANGEL, CDP #### [address] [place] [address] Scribing Machine Operator: Hilton Armenta MD AST [Catalytic activity/Vol] 22 U/L Normal <32 [facility] Comment on above: Performed By: #### P THNCA, FEBC, FERI, GLYHGB, VD25 #### [address] [address] Scribing Machine Operator: Harpal Adair MD #### AGNES OLIVO, AZN #### [facility] [address], [place] [id number] Scribing Machine Operator: Patricio Zuñiga MD #### ANGEL MG, CDP #### [address] [place] [address] Scribing Machine Operator: Hilton Armenta MD Bilirubin [Mass/Vol] 0.2 mg/dL Low 0.3-1.2 [facility] Comment on above: Performed By: #### P THNCA, FEBC, FERI, GLYHGB, VD25 #### [place] [address] [place] [address] Scribing Machine Operator: Harpal Adair MD #### AGNES OLIVO, AZN #### [facility] [address], [place] [id number] Scribing Machine Operator: Patricio Zuñiga MD #### ANGEL, MG, CDP #### [address] [place] [address] Scribing Machine Operator: Hilton Armenta MD BUN/CRE Ratio 20 Normal 9-20 [facility] Comment on above: Performed By: #### ALFONSO COSTA, ARNOLDO, DONAVANB, VD25 #### [address] [address] Scribing Machine Operator: Harpal Adair MD #### AGNES OLIVO, AZN #### [facility] [address], [place] [id number] Scribing Machine Operator: Patricio Zuñiga MD #### ANGEL, MG, CDP #### [address] [place] [address] Scribing Machine Operator: Hilton Armenta MD Calcium [Mass/Vol] 9.9 mg/dL Normal 8.6-10.4 [facility] Comment on above: Performed By: #### ALFONSO COSTA, FERI, GLYHGB, VD25 #### [place] [address] [place] [address] Scribing Machine Operator: Harpal Adair MD #### AGNES OLIVO, AZN #### [facility] [address], [place] [id number] Scribing Machine Operator: Patricio Zuñiga MD #### ANGEL, MG, CDP #### [address] [place] [address] Scribing Machine Operator: Hilton Armenta MD Chloride [Moles/Vol] 107 mmol/L Normal 98-107 [facility] Comment on above: Performed By: #### P THNCA, FEBC, FERI, GLYHGB, VD25 #### [address] [address] Scribing Machine Operator: Harpal Adair MD #### ARIAN OLIVOTB1, AZN #### [facility] [address], [place] [phone] Scribing Machine Operator: Patricio Zuñiga MD #### CP, MG, CDP #### [facility] [address] [place] [address] Scribing Machine Operator: Hilton Armenta MD CO2 [Moles/Vol] 23 mmol/L Normal 20-31 [facility] Comment on above: Performed By: #### P DENNISA, FEBC, FERI, GLYHGB, VD25 #### [address] [address] Scribing Machine Operator: Harpal Adair MD #### ARIAN OLIVOTBCeli, AZN #### [facility] [address] [place] [address] [id number] Scribing Machine Operator: Patricio Zuñiga MD #### ANGEL, MG, CDP #### [facility] [address] [place] [address] Scribing Machine Operator: Hilton Armenta MD Creatinine [Mass/Vol] 0.6 mg/dL Normal 0.5-0.9 [facility] Comment on above: Performed By: #### P THNCA, FEBC, FERI, GLYHGB, VD25 #### [address] [address] Scribing Machine Operator: Harpal Adair MD #### ARIAN OLIVOTB1, AZN #### [facility] [address], [place] 53535[address] Scribing Machine Operator: Patricio Zuñiga MD #### CP, MG, CDP #### [address] [place] [address] Scribing Machine Operator: Hilton Armenta MD GFR/1.73 sq M.predicted among non-blacks MDRD (S/P/Bld) [Vol rate/Area] mL/min/{1.73_m2} Normal >60 [facility] Comment on above: Result Comment: These results [...] renal tubular secretion. Performed By: #### P BAILEY, FECHRIS, FERI, GLYHGB, VD25 #### [address] [phone] Scribing Machine Operator: Harpal Adair MD #### AGNES OLIVO, AZN #### [facility] [address], [place] [id number] Scribing Machine Operator: Patricio Zuñiga MD #### MG ANGEL, CDP #### [address] [place] [address] Scribing Machine Operator: Hilton Armenta MD Glucose [Mass/Vol] 89 mg/dL Normal 70-99 [facility] Comment on above: Performed By: #### P DENNISA, FECHRIS, FERI, GLYHGB, VD25 #### [facility] [place], [place] [phone] Scribing Machine Operator: Harpal Adair MD #### AGNES OLIVO, AZN #### [facility] [address], [place] [phone] Scribing Machine Operator: Patricio Zuñiga MD #### ANGEL, MG, CDP #### [address] [place], [place] 5789383 Scribing Machine Operator: Hilton Armenta MD Potassium [Moles/Vol] 4.3 mmol/L Normal 3.7-5.3 [facility] Comment on above: Performed By: #### P THNCA, FEBC, FERI, GLYHGB, VD25 #### [address] [phone] Scribing Machine Operator: Harpal Adair MD #### AGNES OLIVO, AZN #### [facility] [address], [place] [id number] Scribing Machine Operator: Patricio Zuñiga MD #### MG ANGEL, CDP #### [address] [place] [address] Scribing Machine Operator: Hilton Armenta MD Protein [Mass/Vol] 7.4 g/dL Normal 6.4-8.3 [facility] Comment on above: Performed By: #### P THNCA, FEBC, FERI, GLYHGB, VD25 #### [address] [address] Scribing Machine Operator: Harpal Adair MD #### AGNES OLIVO, AZN #### [facility] [address], [place] 10094[address] Scribing Machine Operator: Patricio Zuñiga MD #### MG ANGEL, CDP #### [address] [place], [place] 2496183 Scribing Machine Operator: Hilton Armenta MD Sodium [Moles/Vol] 141 mmol/L Normal 135-144 [facility] Comment on above: Performed By: #### P THNCA, FEBC, FERI, GLYHGB, VD25 #### [facility] [address] [place] [address] Scribing Machine Operator: Harpal Adair MD #### AVITAS, AVITB1, AZN #### [facility] [address] [place] [address] Scribing Machine Operator: Patricio Zuñiga MD #### ANGEL MG, CDP #### [facility] [address] [place] [address] [address]. [place], [place] 0368383 Scribing Machine Operator: Hilton Armenta MD Urea nitrogen [Mass/Vol] 12 mg/dL Normal 6-20 [facility] Comment on above: Performed By: #### P BAILEY, FECHRIS, FERI, GLYHGB, VD25 #### [facility] [address] [place] [address] [id number] Scribing Machine Operator: Harpal Adair MD #### AGNES OLIVO, AZN #### [facility] [address], [place] [id number] Scribing Machine Operator: Patricio Zuñiga MD #### MG ANGEL, CDP #### [facility] [address] [place] [address] [place] [address] Scribing Machine Operator: Hilton Armenta MD Ferritinon 08-12-2023 Ferritin [Mass/Vol] 12 ng/mL Low 13-150 [facility] Comment on above: Performed By: #### P BAILEY, FECHRIS, FERI, GLYHGB, VD25 #### [address] [address] Scribing Machine Operator: Harpal Adair MD #### AGNES OLIVO, AZN #### [facility] [address], [place] [id number] Scribing Machine Operator: Patricio Zuñiga MD #### ANGEL MG, CDP #### [address] [place] [address] Scribing Machine Operator: Hilton Armenta MD Hemoglobin A1Con 08-12-2023 Glucose [Mass/Vol] 114 mg/dL Normal [facility] Comment on above: Result Comment: The ADA and AACC recommend providing the estimated average glucose result to permit better patient understanding of their HBA1c result. Performed By: #### P THNCA, FEBC, FERI, GLYHGB, VD25 #### [address] [address] Scribing Machine Operator: Harpal Adair MD #### ARIAN OLIVOTB1, AZN #### [facility] [address], [place] [id number] Scribing Machine Operator: Patricio Zuñiga MD #### ANGEL, MG, CDP #### [facility] [address] [place] [address] [place], [place] 7533283 Scribing Machine Operator: Hilton Armenta MD HbA1c (Bld) [Mass fraction] 5.6 % Normal 4.0-6.0 [facility] Comment on above: Performed By: #### P THNCA, FEBC, FERI, GLYHGB, VD25 #### [address] [address] Scribing Machine Operator: Harpal Adair MD #### AGNES OLIVO, AZN #### [facility] [address] [place] [address] Scribing Machine Operator: Patricio Zuñiga MD #### ANGEL, MG, CDP #### [address] [place] [address] Scribing Machine Operator: Hilton Armenta MD Iron Binding Cap.on 08-12-20 23 % Fe Saturation 16 % Low 20-55 [facility] Comment on above: Performed By: #### P THNCA, FEBC, FERI, GLYHGB, VD25 #### [address] [address] Scribing Machine Operator: Harpal Adair MD #### ARIAN OLIVOTB1, AZN #### [facility] [address], [place] [id number] Scribing Machine Operator: Patricio Zuñiga MD #### CP, MG, CDP #### [facility] [address] [place], [place] [phone] Scribing Machine Operator: Hilton Armenta MD Iron [Mass/Vol] 57 ug/dL Normal 37-145 [facility] Comment on above: Performed By: #### P THNCA, FEBC, FERI, GLYHGB, VD25 #### [address] [address] Scribing Machine Operator: Harpal Adair MD #### ARIAN OLIVOTB1, AZN #### [facility] [address], [place] [id number] Scribing Machine Operator: Patricio Zuñiga MD #### ANGEL, MG, CDP #### [address] [place], [place] 9417083 Scribing Machine Operator: Hilton Armenta MD Total Fe Binding Cap 354 ug/dL Normal 250-450 [facility] Comment on above: Performed By: #### P THNCA, FEBC, FERI, GLYHGB, VD25 #### [address] [address] Scribing Machine Operator: Harpal Adair MD #### ARIAN OLIVOTB1, AZN #### [facility] [address], [place] [id number] Scribing Machine Operator: Patricio Zuñiga MD #### CP, MG, CDP #### [address] [place], [place] 2232483 Scribing Machine Operator: Hilton Armenta MD Unbound Fe Bind Cap 297 ug/dL Normal 112-347 [facility] Comment on above: Performed By: #### P THNCA, FEBC, FERI, GLYHGB, VD25 #### [facility] [address] [place] [address] Scribing Machine Operator: Harpal Adair MD #### ARIAN OLIVOTB1, AZN #### [facility] [address] [place] [address] Scribing Machine Operator: Patricio Zuñiga MD #### CP, MG, CDP #### [facility] [address] [place] [address] Scribing Machine Operator: Hilton Armenta MD Lipid Profileon 08-12-2023 Cholesterol [Mass/Vol] 153 mg/dL Normal <200 [facility] Comment on above: Result Comment: Cholesterol Guidelines: <200 Desirable 200-240 Borderline >240 Undesirable Performed By: #### L IPR #### [address] [address] Scribing Machine Operator: Harpal Adair MD Cholesterol in HDL [Mass/Vol] 68 mg/dL Normal >40 [facility] Comment on above: Result Comment: HDL Guidelines: <40 Undesirable 40-59 Borderline >59 Desirable Performed By: #### L IPR #### [address] [address] Scribing Machine Operator: Harpal Adair MD Cholesterol in LDL [Mass/Vol] 77 mg/dL Normal 0-130 [facility] Comment on above: Result Comment: LDL Guidelines: <100 Desirable 100-129 Near to/above Desirable 130-159 Borderline >159 Undesirable Direct (measured) LDL and calculated LDL are not interchangeable tests. Performed By: #### L IPR #### [address] [address] Scribing Machine Operator: Harpal Adair MD Cholesterol.total/Chol esterol in HDL [Mass ratio] 2.3 {ratio} Normal <5 [facility] Comment on above: Performed By: #### L IPR #### [address] [address] Scribing Machine Operator: Harpal Adair MD Triglyceride [Mass/Vol] 39 mg/dL Normal <150 [facility] Comment on above: Result Comment: Triglyceride Guidelines: <150 Desirable 150-199 Borderline 200-499 High >499 Very high Based on AHA Guidelines for fasting triglyceride, June 2012. Performed By: #### L IPR #### [facility] [address] [place] [address] Scribing Machine Operator: Harpal Adair MD Magnesiumon 08-12-2023 Magnesium [Mass/Vol] 2.1 mg/dL Normal 1.6-2.6 [facility] Comment on above: Performed By: #### P DENNISA, FECHRIS, FERI, GLYHGB, VD25 #### [facility] [address] [place] [address] Scribing Machine Operator: Harpal Adair MD #### AGNES OLIVO, AZN #### [facility] [address] [place] [address] Scribing Machine Operator: Patricio Zuñiga MD #### MG ANGEL, CDP #### [facility] [address] [place] [address] [place] [address] Scribing Machine Operator: Hilton Armenta MD PTH, Intacton 08-12-2023 PTH, Intact 17.1 pg/mL Normal 14.0-72.0 [facility] Comment on above: Result Comment: SAMP LES FROM PATIENTS ROUTINELY RECEIVING HIGH DOSE BIOTIN THERAPY MAY SHOW FALSELY DEPRESSED RESULTS. ADDITIONAL INFORMATION MAY BE REQUIRED FOR DIAGNOSIS. Performed By: #### P BAILEY, FECHRIS, FERI, GLYHGB, VD25 #### [facility] [address] [place] [address] Scribing Machine Operator: Harpal Adair MD #### AGNES OLIVO, AZN #### [facility] [address] [place] [address] Scribing Machine Operator: Patricio Zuñiga MD #### ANGEL, MG, CDP #### [facility] [address] [place] [address] Scribing Machine Operator: Hilton Armenta MD Thyroid Stim. Horm.on 2022 Thyroid Stim. Horm. 1.50 uIU/mL Normal 0.30-5.00 [facility] Comment on above: Performed By: #### P THNCA, FEBC, FERI, GLYHGB, VD25 #### [facility] [address] [place] [address] Scribing Machine Operator: Harpal Adair MD #### TYREE OLIVO1, AZN #### [facility] [address] [place], [place] [id number] Scribing Machine Operator: Patricio Zuiñga MD #### ANGEL, MG, CDP #### [facility] [address] [place] [address] [place] [address] Scribing Machine Operator: Hilton Armenta MD Thyroxine, Freeon 08-12-2023 Thyroxine, Free 1.2 ng/dL Normal 0.9-1.7 [facility] Comment on above: Performed By: #### P THNCA, FEBC, FERI, GLYHGB, VD25 #### [facility] [place] [address] Scribing Machine Operator: Harpal Adair MD #### AGNES OLIVO, AZN #### [facility] [address] [place] [address] Scribing Machine Operator: Patricio Zuñiga MD #### ANGEL, MG, CDP #### [address] [place] [address] Scribing Machine Operator: Hilton Armenta MD US GALLBLADDER RUQon 023 US GALLBLADDER RUQ EXAMINATION: RIGHT UPPER QUADRANT ULTRASOUND 08/12/2023 7:25 am COMPARISON: None. HISTORY: ORDERING SYSTEM PROVIDED HISTORY: LUQ pain TECHNOLOGIST PROVIDED HISTORY: This procedure can be scheduled via [employer]. Access your [employer] account by visiting [employer]. FINDINGS: LIVER: The liver demonstrates normal echogenicity [...] Bret Monson DO 08/12/23 Final result Normal [facility] Vitamin D 25 OHon 08-12-2023 Vitamin D 25 OH 45.1 ng/mL Normal >29.9 [facility] Comment on above: Result Comment: Reference Range: Vitamin D status Range Deficiency <20 ng/mL Mild Deficiency 20-30 ng/mL Sufficiency 30-100 ng/mL Toxicity >100 ng/mL Performed By: #### P THNCA, FEBC, FERI, GLYHGB, VD25 #### [facility] [place], [place] [id number] Scribing Machine Operator: Harpal Adair MD #### AGNES OLIVO, AZN #### [facility] [address] [place] [address] Scribing Machine Operator: Patricio Zuñiga MD #### CP, MG, CDP #### [facility] [address] [place] [address] Scribing Machine Operator: Hilton Armenta MD Patient Correspondenceon Patient Correspondence [id number]#[id number] Normal [facility] CBC with Diffon 07-30-2023 Abs. Basophil 0.08 k/uL Normal 0.00-0.20 [facility] Comment on above: Performed By: #### T SH, CDP, LIP, CP #### [facility] [address] [place] [address] Scribing Machine Operator: Harpal Adair MD Abs.Imm.Granulocyte 0.04 k/uL Normal 0.00-0.30 [facility] Comment on above: Performed By: #### T VALERIO REED, LIP, CP #### [facility] [address] [place] [address] Scribing Machine Operator: Harpal Adair MD Abs.Neutrophil (Seg) 6.94 k/uL Normal 1.50-8.10 [facility] Comment on above: Performed By: #### T SH, CDP, LIP, CP #### [facility] [address] [place] [address] Scribing Machine Operator: Harpal Adair MD Basophils/100 WBC (Bld) 1 % Normal 0-2 [facility] Comment on above: Performed By: #### T VALERIO REED, LIP, CP #### [place] [address] Scribing Machine Operator: Harpal Adair MD Eosinophils (Bld) [#/Vol] 0.23 10*3/uL Normal 0.00-0.44 [facility] Comment on above: Performed By: #### T VALERIO REED, LIP, CP #### [facility] [address] [place] [address] Scribing Machine Operator: Harpal Adair MD Eosinophils/100 WBC (Bld) 2 % Normal 1-4 [facility] Comment on above: Performed By: #### T BRIANNA, VALERIO, LIP, CP #### [facility] [address] [place] [address] Scribing Machine Operator: Harpal Adair MD Erythrocyte distribution width (RBC) [Ratio] 15.3 % High 11.8-14.4 [facility] Comment on above: Performed By: #### T SH, CDP, LIP, CP #### [facility] [address] [place] [address] Scribing Machine Operator: Harpal Adair MD Hematocrit (Bld) [Volume fraction] 38.8 % Normal 36.3-47.1 [facility] Comment on above: Performed By: #### T SH, CDP, LIP, CP #### [facility] [address] [place] [address] Scribing Machine Operator: Harpal Adair MD Hemoglobin (Bld) [Mass/Vol] 12.5 g/dL Normal 11.9-15.1 [facility] Comment on above: Performed By: #### T SH, CDP, LIP, CP #### [facility] [address] [place] [address] Scribing Machine Operator: Harpal Adair MD Immature granulocytes/100 WBC (Bld) 0 % Normal 0 [facility] Comment on above: Performed By: #### T BRIANNA, CDP, LIP, CP #### [address] [address] Scribing Machine Operator: Harpal Adair MD Lymphocytes (Bld) [#/Vol] 2.19 10*3/uL Normal 1.10-3.70 [facility] Comment on above: Performed By: #### T BRIANNA, VALERIO, LIP, CP #### [facility] [address] [place] [address] Scribing Machine Operator: Harpal Adair MD Lymphocytes/100 WBC (Bld) 21 % Low 24-43 [facility] Comment on above: Performed By: #### T SH, CDP, LIP, CP #### [facility] [address] [place] [address] Scribing Machine Operator: Harpal Adair MD MCH (RBC) [Entitic mass] 30.6 pg Normal 25.2-33.5 [facility] Comment on above: Performed By: #### T SH, CDP, LIP, CP #### [facility] [address] [place] [address] Scribing Machine Operator: Harpal Adair MD MCHC (RBC) [Mass/Vol] 32.2 g/dL Normal 28.4-34.8 [facility] Comment on above: Performed By: #### T SH, CDP, LIP, CP #### [address] [address] Scribing Machine Operator: Harpal Adair MD MCV (RBC) [Entitic vol] 94.9 fL Normal 82.6-102.9 [facility] Comment on above: Performed By: #### T SH, CDP, LIP, CP #### [place] [address] Scribing Machine Operator: Harpal Adair MD Monocytes (Bld) [#/Vol] 0.74 10*3/uL Normal 0.10-1.20 [facility] Comment on above: Performed By: #### T SH, CDP, LIP, CP #### [place] [address] Scribing Machine Operator: Harpal Adair MD Monocytes/100 WBC (Bld) 7 % Normal 3-12 [facility] Comment on above: Performed By: #### T BRIANNA, CDP, LIP, CP #### [place] [address] Scribing Machine Operator: Harpal Adair MD Neutrophil (Seg) 69 % High 36-65 [facility] Comment on above: Performed By: #### T SH, CDP, LIP, CP #### [place] [address] Scribing Machine Operator: Harpal Adair MD NRBC Automated 0.0 per 100 WBC Normal 0.0 [facility] Comment on above: Performed By: #### T SH, CDP, LIP, CP #### [place] [address] Scribing Machine Operator: Harpal Adair MD Platelet mean volume (Bld) [Entitic vol] 12.0 fL Normal 8.1-13.5 [facility] Comment on above: Performed By: #### T SH, CDP, LIP, CP #### [address] [address] Scribing Machine Operator: Harpal Adair MD Platelets (Bld) [#/Vol] 348 10*3/uL Normal 138-453 [facility] Comment on above: Performed By: #### T SH, CDP, LIP, CP #### [address] [address] Scribing Machine Operator: Harpal Adair MD RBC (Bld) [#/Vol] 4.09 10*6/uL Normal 3.95-5.11 [facility] Comment on above: Performed By: #### T SH, CDP, LIP, CP #### [address] [address] Scribing Machine Operator: Harpal Adair MD RBC morphology finding Nom (Bld) ANISOCYTOSIS PRESENT Normal [facility] Comment on above: Performed By: #### T SH, CDP, LIP, CP #### [address] [address] Scribing Machine Operator: Harpal Adair MD WBC (Bld) [#/Vol] 10.2 10*3/uL Normal 3.5-11.3 [facility] Comment on above: Performed By: #### T SH, CDP, LIP, CP #### [address] [address] Scribing Machine Operator: Harpal Adair MD Comp Metabolic Profon 2022 Bilirubin [Mass/Vol] mg/dL Low 0.3-1.2 [facility] Comment on above: Performed By: #### T SH, CDP, LIP, CP #### [address] [address] Scribing Machine Operator: Harpal Adair MD Albumin [Mass/Vol] 4.4 g/dL Normal 3.5-5.2 [facility] Comment on above: Performed By: #### T SH, CDP, LIP, CP #### [address] [address] Scribing Machine Operator: Harpal Adair MD Albumin/Glob Ratio 1.4 Normal 1.0-2.5 [facility] Comment on above: Performed By: #### T SH, CDP, LIP, CP #### [address] [address] Scribing Machine Operator: Harpal Adair MD Alkaline Phos 76 U/L Normal 35-104 [facility] Comment on above: Performed By: #### T SH, CDP, LIP, CP #### [facility] [address] [place] [address] Scribing Machine Operator: Harpal Adair MD ALT [Catalytic activity/Vol] 20 U/L Normal 5-33 [facility] Comment on above: Performed By: #### T SH, CDP, LIP, CP #### [address] [address] Scribing Machine Operator: Harpal Adair MD Anion gap [Moles/Vol] 11 mmol/L Normal 9-17 [facility] Comment on above: Performed By: #### T SH, CDP, LIP, CP #### [address] [address] Scribing Machine Operator: Harpal Adair MD AST [Catalytic activity/Vol] 22 U/L Normal <32 [facility] Comment on above: Performed By: #### T SH, CDP, LIP, CP #### [facility] [address] [place] [address] Scribing Machine Operator: Harpal Adair MD Calcium [Mass/Vol] 9.6 mg/dL Normal 8.6-10.4 [facility] Comment on above: Performed By: #### T SH, CDP, LIP, CP #### [address] [address] Scribing Machine Operator: Harpal Adair MD Chloride [Moles/Vol] 105 mmol/L Normal 98-107 [facility] Comment on above: Performed By: #### T BRIANNA CDP, LIP, CP #### [address] [address] Scribing Machine Operator: Harpal Adair MD CO2 [Moles/Vol] 23 mmol/L Normal 20-31 [facility] Comment on above: Performed By: #### T VALERIO REED, LIP, CP #### [address] [address] Scribing Machine Operator: Harpal Adair MD Creatinine [Mass/Vol] 0.6 mg/dL Normal 0.5-0.9 [facility] Comment on above: Performed By: #### T VALERIO REED LIP, CP #### [address] [address] Scribing Machine Operator: Harpal Adair MD GFR/1.73 sq M.predicted among non-blacks MDRD (S/P/Bld) [Vol rate/Area] mL/min/{1.73_m2} Normal >60 [facility] Comment on above: Result Comment: These results [...] tubular secretion. Performed By: #### T VALERIO REED, LIP, CP #### [address] [address] Scribing Machine Operator: Harpal Adair MD Glucose [Mass/Vol] 73 mg/dL Normal 70-99 [facility] Comment on above: Performed By: #### T SH, CDP, LIP, CP #### [facility] [employer] [address] [place] [address] Scribing Machine Operator: Harpal Adair MD Potassium [Moles/Vol] 4.0 mmol/L Normal 3.7-5.3 [facility] Comment on above: Performed By: #### T SH, CDP, LIP, CP #### [address] [address] Scribing Machine Operator: Harpal Adair MD Protein [Mass/Vol] 7.5 g/dL Normal 6.4-8.3 [facility] Comment on above: Performed By: #### T SH, CDP, LIP, CP #### [facility] [address] [place] [address] Scribing Machine Operator: Harpal Adair MD Sodium [Moles/Vol] 139 mmol/L Normal 135-144 [facility] Comment on above: Performed By: #### T SH, CDP, LIP, CP #### [facility] [address] [place] [address] Scribing Machine Operator: Harpal Adair MD Urea nitrogen [Mass/Vol] 15 mg/dL Normal 6-20 [facility] Comment on above: Performed By: #### T SH, CDP, LIP, CP #### [address] [address] Scribing Machine Operator: Harpal Adair MD Lipaseon 07-30-2023 Lipase [Catalytic activity/Vol] 45 U/L Normal 13-60 [facility] Comment on above: Performed By: #### T SH, CDP, LIP, CP #### [facility] [employer] [address] [place] [address] Scribing Machine Operator: Harpal Adair MD Thyroid Stim. Horm.on 2022 Thyroid Stim. Horm. 1.18 uIU/mL Normal 0.30-5.00 [facility] Comment on above: Performed By: #### T SH, CDP, LIP, CP #### [address] [address] Scribing Machine Operator: Harpal Adair MD UA w/Reflex Cultureon 2022 Bilirubin, SemiQt,Ur Negative Normal NEG [facility] Comment on above: Performed By: #### U AX #### [address] [address] Scribing Machine Operator: Harpal Adair MD Blood, Urine Negative Normal NEG [facility] Comment on above: Performed By: #### U AX #### [address] [address] Scribing Machine Operator: Harpal Adair MD Clarity (U) Clear Normal CLEAR [facility] Comment on above: Performed By: #### U AX #### [address] [address] Scribing Machine Operator: Harpal Adair MD Color (U) Yellow Normal YEL [facility] Comment on above: Performed By: #### U AX #### [address] [address] Scribing Machine Operator: Harpal Adair MD Comment Microscopic exam not performed based on chemical results unless requested in Normal [facility] Comment on above: Result Comment: orig inal order. Performed By: #### U AX #### [address] [address] Scribing Machine Operator: Harpal Adair MD Glucose Ql (U) Negative Normal NEG [facility] Comment on above: Performed By: #### U AX #### [address] [address] Scribing Machine Operator: Harpal Adair MD Ketones Ql (U) Negative Normal NEG [facility] Comment on above: Performed By: #### U AX #### [address] [address] Scribing Machine Operator: Harpal Adair MD Leukocyte esterase Test strip Ql (U) Negative Normal NEG [facility] Comment on above: Performed By: #### U AX #### [address] [address] Scribing Machine Operator: Harpal Adair MD Nitrite,Ur Negative Normal NEG [facility] Comment on above: Performed By: #### U AX #### [address] [address] Scribing Machine Operator: Harpal Adair MD PH,Ur 5.0 Normal 5.0-8.0 [facility] Comment on above: Performed By: #### U AX #### [address] [address] Scribing Machine Operator: Harpal Adair MD Protein Ql (U) Negative Normal NEG [facility] Comment on above: Performed By: #### U AX #### [address] [address] Scribing Machine Operator: Harpal Adair MD [employer]. [employer],Ur 1.020 Normal 1.005-1.03 0 [facility] Comment on above: Performed By: #### U AX #### [address] [address] Scribing Machine Operator: Harpal Adair MD Urobilinogen,Ur Normal Normal 0.0-1.0 [facility] Comment on above: Performed By: #### U AX #### [address] [address] Scribing Machine Operator: Harpal Adair MD ED Note-Physicianon 07-14-20 23 ED Note-Physician Basic Information Time Seen: Shama Macdonald PA-C 06/09/2023 15:45 Chief Complaint Pt presents to ED with complaints of MALDONADO onset today. History of Present Illness This patient presents to the emergency department chief complaint of rasheed. She states that she has spent $10,000 in the last 2 weeks. She did see her psychiatrist at [facility] today and they are starting her on [...] concentrating, paranoia, anhedonia, lack of energy. + rasheed Hematologic/lymphatic: Denies any purpura, petechiae, excessive bleeding, bruising [...] Number and Complexity of Problems Differential Diagnosis: Rasheed, headache MDM Data External documents reviewed: Not [...] plan of care. (more content not included)... Normal [facility] Comment on above: Result Comment: Elec tronically Signed By: Shama Macdonald PA-C\.br\Date and Time Signed: 07/14/23 19:57 EDT\.br\Electronically Co-Signed By: Alexis Shukla DO\.br\Date and Time Co-Signed: 07/20/23 07:11 EST COVID Quick Testingon 2022 Result Negative [employer] Other Consultation Noteon 07-08-20 Consultation Note [id number]#1.00TIFF Normal [facility] Consent for Treatmenton 06-14 Consent for Treatment [id number]#1.00TIFF Normal [facility] ED Clinical Summaryon 2022 ED Clinical Summary (Inserted Image. Jordana ble to display) [place] [id number] ED Clinical Summary Person Information Name: SHAZIA CHOU [facility] Age: 32 Years : 1990 Sex: Female Language: Scottish PCP: Jennie Ames DO Marital Status: Phone: [phone] MRN: Visit Id: Visit Reason: Headache; Neck [...] 07/02/2023 15:29:14 07/02/2023 15:29:14 07/02/2023 15:29:14 ADDRESS: [address] [place] [phone] PHYS DOC NOTES: MEDICAL INFORMATION: Prescriptions Given: [...] EDUCATION INFORMATION: Instructions: Follow up: DIAGNOSIS: Normal [facility] ED Patient Education Noteon 07-02-2023 ED Patient Education Note Normal [facility] ED Patient Summaryon 023 ED Patient Summary (Inserted Image. Jordana ble to display) [place] [id number] Patient Discharge Instructions Person Information Name: SHAZIA CHOU Age: 32 Years Arrival Date: 07/02/2023 14:03:05 Discharge Diagnosis: Primary Care Physician: Jennie Ames DO Provider Information Primary Provider: Bakari Chester DO [employer] Technician:Merari Polanco PA-C The exam and treatment you received in the Emergency Department were for an urgent problem and are not intended as complete care. It is important that you follow up with a doctor, nurse practitioner, or physician?s diet assistant for ongoing care. If your symptoms [...] opioids can be used to help relieve cntulgfl-ou-qfdmos pain and are often prescribed following a [...] guidance from the Food and Drug Administration (www.fda.gov/Drugs/Resour cesForYou). ? Visit www.cdc.gov/drugoverdose to learn about the risks of opioids abuse and overdose. ? If you believe you may be struggling with addiction, tell your health child care centre director and ask for guidance or call [facility]S [facility] [place] Helpline at 2-240-453-QACS. t Source: [place] Department of Health and Human Services/Center for Disease Control & Prevention [facility] Medications Given: Medication Dose Route No medication (more content not included)... [facility] Consultation Noteon 06-22-20 Consultation Note [id number]#1.00TIFF [facility] Consultation Noteon 06-19-20 Consultation Note [id number]#1.00TIFF [facility] CNPNon 06-15-2023 [facility]NEAD[facility] ----- SHAZIA CHOU ([id number]) 1990 F Date Time Provider Department 06/15/23 MARGO MANZANOFV During your visit today, we recorded the following information about you: Bunny Durbin, RN 06/15/2023 4:57 PM Signed Received clinical notes and test results from [facility] ED visit from 06/10/23. 13 pages. Scanned to chart via [email or web address]. Routed to provider for review Glen Singh [...] is not alleviating the problem. Patient # [phone] Consuelo Betancur 07/03/2023 12:15 PM Signed Per instructions from Dr. Manzano. LM for patient, also sent message via [employer]. She needs to be back on diamox 500mg bid. Margo Manzano MD Allergies As of Date: 06/15/2023 [...] 40 mg by mouth once daily. - prfvmfccnkld-oll-rehc-FA- vit K (BARIATRIC MULTIVITAMINS) 45 mg iron- 800 [...] in remission (HCC) [*06/10/2023 Encounter Status:Closed by CONSUELO BETANCUR on 07/03/23 [facility] CNPN Telephone (NIQ) ----- CASSIASHAZIA MALDONADO ([id number]) 1990 F Date Time Provider Department 06/15/23 MARGO MANZANO During your visit today, we recorded the following information about you: Fabby Fam 06/15/2023 3:[address] Brain report from [facility]. Scanned to chart for review. Bunny Durbin RN 06/15/2023 4:[address] brain results available in scanned documents for your review. Bunny Durbin RN 06/16/2023 3:04 PM Signed Call to patient without answer. Voice message left asking her to review her [employer] message with a response from . Informed [...] 40 mg by mouth once daily. - ptimlxlbkexn-sgr-yirx-FA- vit K (BARIATRIC MULTIVITAMINS) 45 mg iron- 800 [...] Encounter Status:Closed by BUNNY DURBIN on 06/16/23 Normal [facility] CNPNon 06-11-2023 CNPN Telephone (NECVS8) ----- SHAZIA CHOU ([id number]) 1990 F Date Time Provider Department 06/11/23 MARGO MANZANO NECVS8 During your visit today, we recorded the following information about you: Daisy Martínez 06/11/2023 2:04 PM Signed CV PHONE Name of caller : Salbador Jolly Relationship to patient : [facility] If not self Will need patient permission to release results or disclose health information with called documented in . Patient identified by Name and Date of . ( Shazia Chou, 1990). 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 The results are available [facility]. Patient is still experiencing vision changes and headaches. [phone] Thank you calling [facility]. You will receive a return call within 48 hours ( or 2 business days if close to the weekend). If you feel that this is an urgent issue and needs immediate attention, it is recommended that you contact your primary care provider office or proceed to your nearest Urgent Care Center of Emergency Room ED for evaluation/treatment. Bunny Durbin, RN 06/12/2023 10:25 AM Signed Spoke with Karin at radiology at [facility]. She will fax the CT Brain results to our office. Fax number provided. Bunny Durbin RN 06/12/2023 2:53 PM Signed As of this hour, no fax received for CT Brain . Spoke with [employer] sales representative again in radiology and different fax [...] was evaluated in the ED today at [facility] for complaints of 'feeling like someone was [...] continue diamox and follow up with me. Margo Manzano MD Informed patient of the above [...] 40 mg by mouth once daily. - kmdoedamhyug-gfo-rlmm-FA- vit K (BARIATRIC MULTIVITAMINS) 45 mg iron- 800 [...] Status:Closed by BUNNY DURBIN on 06/15/23 Normal [facility] Discharge Instructionson Discharge Instructions [id number]:1 27 Normal [facility] Acetamnphn Lvlon 06-09-2023 Acetaminophen [Mass/Vol] ug/mL Low 15-30 [facility] Comment on above: Performed By: #### 1 [id number] #### [facility] [address] [place] [address] Auto Diffon 06-09-2023 Basophils/100 WBC (Bld) 0.6 % Normal 0.0-2.0 [facility] Comment on above: Order Comment: Order Added by Discern Expert. Performed By: #### 1 [id number] #### [facility] [address] [place] [address] Basophils/Leukocytes Auto (Bld) [Pure # fraction] 0.0 E9/L Normal 0.0-0.2 [facility] Comment on above: Order Comment: Order Added by Discern Expert. Performed By: #### 1 [id number] #### [facility] [address] [place] [address] Eosinophils/100 WBC (Bld) 1.9 % Normal 0.0-8.0 [facility] Comment on above: Order Comment: Order Added by Discern Expert. Performed By: #### 1 [id number] #### [facility] [address] [place] [address] Eosinophils/Leukocytes Auto (Bld) [Pure # fraction] 0.2 E9/L Normal 0.0-0.5 [facility] Comment on above: Order Comment: Order Added by Discern Expert. Performed By: #### 1 [id number] #### [facility] [address] [place] [address] Lymphocytes/100 WBC (Bld) 23.4 % Normal 14.0-50.0 [facility] Comment on above: Order Comment: Order Added by Discern Expert. Performed By: #### 1 [id number] #### [facility] [address] [place] [address] Lymphocytes/Leukocytes Auto (Bld) [Pure # fraction] 2.0 E9/L Normal 1.0-4.0 [facility] Comment on above: Order Comment: Order Added by Discern Expert. Performed By: #### 1 [id number] #### [facility] [address] [place] [address] Monocytes/100 WBC (Bld) 6.9 % Normal 4.0-14.0 [facility] Comment on above: Order Comment: Order Added by Discern Expert. Performed By: #### 1 9125711 #### [facility] [address] [place] [address] Monocytes/Leukocytes Auto (Bld) [Pure # fraction] 0.6 E9/L Normal 0.2-1.0 [facility] Comment on above: Order Comment: Order Added by Discern Expert. Performed By: #### 1 [id number] #### [facility] [address] [place] [address] Neutrophils/100 WBC (Bld) 67.2 % Normal 36.0-75.0 [facility] Comment on above: Order Comment: Order Added by Discern Expert. Performed By: #### 1 6281160 #### [facility] [address] [place] [address] Neutrophils/Leukocytes Auto (Bld) [Pure # fraction] 5.6 E9/L Normal 2.0-7.5 [facility] Comment on above: Order Comment: Order Added by Discern Expert. Performed By: #### 1 7429148 #### [facility] [address] [place] [address] CBC w/ Auto Diffon 3 Erythrocyte distribution width (RBC) [Ratio] 18.2 % High 10.9-14.2 [facility] Comment on above: Performed By: #### 1 7949008 #### [facility] [address] [place] [address] Hematocrit (Bld) [Volume fraction] 34.3 % Normal 34.0-46.0 [facility] Comment on above: Performed By: #### 1 4541669 #### [facility] [address] [place] [address] Hemoglobin (Bld) [Mass/Vol] 11.5 g/dL Low 12.0-16.0 [facility] Comment on above: Performed By: #### 1 8543837 #### [facility] [address] [place] [address] MCH (RBC) [Entitic mass] 30.6 pg Normal 27.0-34.0 [facility] Comment on above: Performed By: #### 1 [id number] #### [facility] [address] [place] [address] MCHC (RBC) [Mass/Vol] 33.6 g/dL Normal 31.4-36.0 [facility] Comment on above: Performed By: #### 1 7295838 #### [facility] [address] [place] [address] MCV (RBC) [Entitic vol] 91.0 fL Normal 80.0-100.0 [facility] Comment on above: Performed By: #### 1 [id number] #### [facility] [address] [place] [address] Platelet mean volume (Bld) [Entitic vol] 9.8 fL Normal 6.4-10.8 [facility] Comment on above: Performed By: #### 1 [id number] #### [facility] [address] [place] [address] Platelets (Bld) [#/Vol] 283.0 E9/L Normal 150.0-500. 0 [facility] Comment on above: Performed By: #### 1 [id number] #### [facility] [address] [place] [address] RBC (Bld) [#/Vol] 3.8 E12/L Low 4.3-5.9 [facility] Comment on above: Performed By: #### 1 2625286 #### [facility] [address] [place] 6743357 WBC corrected for nucl RBC Auto (Bld) [#/Vol] 8.4 E9/L Normal 4.0-11.0 [facility] Comment on above: Performed By: #### 1 7447407 #### [facility] [address] [place] [address] CMPon 06-09-2023 Albumin [Mass/Vol] 4.1 g/dL Normal 3.3-5.0 [facility] Comment on above: Performed By: #### 1 8614615 #### [facility] [address] [place] 6743357 Albumin/Globulin (S) [Mass conc ratio] 1.3 Normal 1.1-2.2 [facility] Comment on above: Performed By: #### 1 2717924 #### [facility] [address] [place] 6[address]3357 ALP [Catalytic activity/Vol] 58 Int._Unit/L Normal 21-98 [facility] Comment on above: Performed By: #### 1 [id number] #### [facility] [address] [place] [address] ALT No additional P-5'-P [Catalytic activity/Vol] 18 Int._Unit/L Normal 6-46 [facility] Comment on above: Performed By: #### 1 3590000 #### [facility] [address] [place] [address] AST [Catalytic activity/Vol] 20 Int._Unit/L Normal 5-43 [facility] Comment on above: Performed By: #### 1 0356067 #### [facility] [address] [place] [address] Bilirubin [Mass/Vol] 0.1 mg/dL Normal 0.0-1.1 [facility] Comment on above: Performed By: #### 1 7548401 #### [facility] [address] [place] [address] Creatinine [Mass/Vol] 0.6 mg/dL Normal 0.5-1.3 [facility] Comment on above: Performed By: #### 1 1590225 #### [facility] [address] [place] [address] Globulin (S) [Mass/Vol] 3.2 g/dL Normal 1.4-4.0 [facility] Comment on above: Performed By: #### 1 9368892 #### [facility] [address] [place] [address] Protein [Mass/Vol] 7.3 g/dL Normal 6.0-7.8 [facility] Comment on above: Performed By: #### 1 9182654 #### [facility] [address] [place] [address] Urea nitrogen [Mass/Vol] 15 mg/dL Normal 5-21 [facility] Comment on above: Performed By: #### 1 0798699 #### [facility] [address] [place] [address] Urea nitrogen/Creatinine [Mass ratio] 25 No Units High 10-20 [facility] Comment on above: Performed By: #### 1 2157028 #### [facility] [address] [place] [address] Anion gap [Moles/Vol] 13 mmol/L Normal 6-16 [facility] Comment on above: Performed By: #### 1 9316560 #### [facility] [address] [place] [address] Calcium [Mass/Vol] 9.3 mg/dL Normal 8.9-11.1 [facility] Comment on above: Performed By: #### 1 9225071 #### [facility] [address] [place] [address] Chloride [Moles/Vol] 107 mmol/L Normal 101-111 [facility] Comment on above: Performed By: #### 1 3157806 #### [facility] [address] [place] [address] CO2 [Moles/Vol] 23 mmol/L Normal 21-31 [facility] Comment on above: Performed By: #### 1 9965942 #### [facility] [address] [place] [address] Glucose [Mass/Vol] 91 mg/dL Normal 55-199 [facility] Comment on above: Result Comment: If t his glucose result represents a fasting glucose, interpretation should refer to the following reference range: 55-99 mg/dL Performed By: #### 1 8421866 #### [facility] [address] [place] [address] Potassium [Moles/Vol] 3.6 mmol/L Normal 3.5-5.3 [facility] Comment on above: Performed By: #### 1 7839079 #### [facility] [address] [place] [address] Sodium [Moles/Vol] 139 mmol/L Normal 135-145 [facility] Comment on above: Performed By: #### 1 8784567 #### [facility] [address] [place] [address] Consent for Treatmenton 05-16 Consent for Treatment [id number]:12 7 Normal [facility] ED Clinical Summaryon 2022 ED Clinical Summary (Inserted Image. Jordana ble to display) [address] [address] ED Clinical Summary Person Information Name: SHAZIA CHOU [place] Age: 32 Years : 1990 Sex: Female Language: Scottish PCP: Jennie Ames DO Marital Status: Phone: [phone] MRN: Visit Id: Visit Reason: Headache; HEADACHE [...] 06/09/2023 18:42:22 06/09/2023 18:42:22 06/09/2023 18:42:22 ADDRESS: [address] [place] [address] [id number] PHYS DOC NOTES: MEDICAL INFORMATION: Prescriptions Given: [...] (at bedtime). PATIENT EDUCATION INFORMATION: Instructions: Paresthesia, Itru-si-Eent; Migraine Headache, Xfqx-jl-Ibpt Follow up: With: Address: When: [place] [phone] In 3 days 06/12/2023 With: Address: When: Jennie Ames [address] [place], [place] [address] [address] [facility] (1) In 3 days 06/12/2023 DIAGNOSIS: 1:Headache; 2:Paresthesia of arm Normal [facility] ED Patient Education Noteon 06-09-2023 ED Patient [...] liquor (44 mL). General instructions ? Take fpfu-elf-enchcmq and prescription medicines only as told by [...] provider. Document Revised: 05/12/2022 Document Reviewed: 05/12/2022 Elsevier Patient Education ? 2022 [employer] Migraine Headache A migraine headache is [...] ? Tiredness. (more content not included)... Normal [facility] ED Patient Summaryon 09-26-2 023 ED Patient Summary (Inserted Image. Jordana ble to display) [address] [address] Patient Discharge Instructions Person Information Name: SHAZIA CHOU Age: 32 Years Arrival Date: 06/09/2023 15:33:36 Discharge Diagnosis: 1:Headache; 2:Paresthesia of arm Primary Care Physician: Jennie Ames DO Provider Information Primary Provider: Alexis Shukla DO Advanced Forest Ranger Technician:None The exam and treatment you received in the Emergency Department were for an urgent problem and are not intended as complete care. It is important that you follow up with a doctor, nurse practitioner, or physician?s diet assistant for ongoing care. If your symptoms become worse or you do not improve as expected and you are unable to reach your usual health care provider, you should return to the Emergency Department. We are available 24 hours a day. SHAZIA CHOU has been given the following list of patient education materials, prescriptions and follow-up instructions: Follow-up Instructions: With: Address: When: [facility] In 3 days 06/12/2023 With: Address: When: Jennie Amse [address] [address] [facility] (1) In 3 days 06/12/2023 In the event that this physician does not participate in your insurance network, please consult with your insurance company to find a nearby participating provider. Patient Education Materials: Paresthesia, Byxe-tm-Ikic; Migraine Headache, Uzop-pj-Jnho A MESSAGE TO ALL PATIENTS REGARDING OPIOIDS PRESCRIPTION OPIOIDS: WHAT YOU NEED TO KNOW Prescription opioids can be used to help relieve olnzpxbt-bj-mwheib pain and are often prescribed following a [...] guidance from the Food and Drug Administration (www.fda.gov/Drugs/Resour cesForYou). ? Visit www.cdc.gov/drugoverdose to learn about the risks of opioids abuse and overdose. ? If you believe you may be struggling with addiction, tell (more content not included)... Normal [facility] Ethanolon 06-09-2023 Ethanol [Mass/Vol] mg/dL Normal <=7 [facility] Comment on above: Performed By: #### 2 [id number] ####[facility] [address] [place] [address] Salicylateon 06-09-2023 Salicylates [Mass/Vol] mg/dL Low 6-29 [facility] Comment on above: Performed By: #### 1 [id number] #### [facility] [address] [place] [address] U Drug Screenon 06-09-2023 Amphetamines Screen method >1000 ng/mL Ql (U) Negative Normal Negative [facility] Comment on above: Result Comment: Nega tive Cutoff: <1000 ng/mL Performed By: #### 2 264609 #### [facility] [address] [place] [address] Barbiturates Screen Ql (U) Negative Normal Negative [facility] Comment on above: Result Comment: Nega tive Cutoff: <200 ng/mL Performed By: #### 2 079961 #### [facility] [address] [place] [address] Benzodiazepines Ql (U) Negative Normal Negative [facility] Comment on above: Result Comment: Nega tive Cutoff: <200 ng/mL Performed By: #### 2 846114 #### [facility] [address] [place] [address] Cocaine Ql (U) Negative Normal Negative [facility] Comment on above: Result Comment: Nega tive Cutoff: <300 ng/mL Performed By: #### 2 692291 #### [facility] [address] [place] [address] Opiates Screen Ql (U) Negative Normal Negative [facility] Comment on above: Result Comment: Nega tive Cutoff: <300 ng/mL Performed By: #### 2 675760 #### [facility] [address] [place] [address] Phencyclidine Screen method >25 ng/mL Ql (U) Negative Normal Negative [facility] Comment on above: Result Comment: Nega tive Cutoff: <25 ng/mL These drug screen results are to be used for medical (i.e., treatment) purposes only. Unconfirmed drug screening results must not be used for non-medical purposes (e.g., employment testing, legal testing). Performed By: #### 2 071362 #### [facility] [address] [place] [address] Tetrahydrocannabinol Screen method >50 ng/mL Ql (U) Negative Normal Negative [facility] Comment on above: Result Comment: Nega tive Cutoff: <50 ng/mL Performed By: #### 2 444436 #### [facility] [address] [place] [address] UA With Cult Reflexon 2022 Bilirubin Ql (U) Negative Normal Negative [facility] Comment on above: Performed By: #### 1 7055547 ####[facility] [address] [place] [address] Clarity (U) CLEAR Normal Clear [facility] Comment on above: Performed By: #### 1 1969256 ####[facility] [address] [place] [address] Color (U) YELLOW Normal Yellow [facility] Comment on above: Performed By: #### 1 3432105 ####[facility] [address] [place] [address] Crystals LM Ql (Urine sed) Present Normal [facility] Comment on above: Performed By: #### 1 3662579 ####[place] [address] [place] [address] Epithelial cells.squamous LM.HPF (Urine sed) [#/Area] 0-2 Normal 0-2 [facility] Comment on above: Performed By: #### 1 8486911 ####[facility] [address] [place] [address] Glucose Test strip (U) [Mass/Vol] Negative Normal Negative [facility] Comment on above: Performed By: #### 1 4011246 ####[facility] [address] [place] [address] Hemoglobin Ql (U) Negative Normal Negative [facility] Comment on above: Performed By: #### 1 5378248 ####[address] [address] Ketones (U) [Mass/Vol] Negative Normal Negative [facility] Comment on above: Performed By: #### 1 6717042 ####[address] [address] [place].plasma/[place] .RBC (Bld) [Mass ratio] 0-3 Normal 0-3 [facility] Comment on above: Performed By: #### 1 3547021 ####[address] [address] Nitrite Ql (U) Negative Normal Negative [facility] Comment on above: Performed By: #### 1 6405759 ####[address] [address] pH (U) 6.0 [pH] Invalid Interpretation Code 5.0-9.0 [facility] Comment on above: Performed By: #### 1 3700965 ####[address] [address] Protein (U) [Mass/Vol] Negative Normal Negative [facility] Comment on above: Performed By: #### 1 7329662 ####[address] [address] Specific gravity (U) [Rel density] 1.010 Invalid Interpretation Code 1.005-1.03 0 [facility] Comment on above: Performed By: #### 1 7416247 ####[address] [address] Type of Urine collection method Clean Catch Normal [facility] Comment on above: Performed By: #### 1 0183238 ####[place] [address] [place] [address] Urobilinogen Qn (U) 0.2 {Lucila'U}/dL Normal 0.0-1.0 [facility] Comment on above: Performed By: #### 1 5970104 ####[facility] [address] [place] [address] WBC Auto Ql (U) Negative Normal Negative [facility] Comment on above: Performed By: #### 1 9145625 ####[facility] [address] [place] [address] WBC LM.HPF (Urine sed) [#/Area] 0-5 Normal 0-5 [facility] Comment on above: Performed By: #### 1 7696943 ####[facility] [address] [place] [address] eGFRon 06-09-2023 GFR/1.73 sq M.predicted among non-blacks MDRD (S/P/Bld) [Vol rate/Area] 121 mL/min/1.73 m2 Normal >=59 [facility] Comment on above: Order Comment: Order added by Discern Expert. Result Comment: Content Designer gurpreet kidney disease could be indicated at eGFR's of less than 60 mL/min/1.73m2. Kidney failure is indicated at less than 15 mL/min/1.73m2. Performed By: #### 1 [id number] #### [facility] [address] [place] [address] Vit Aon 03-24-2023 Retinol [Mass/Vol] 42.9 microgram/dL Invalid Interpretation Code 18.9-57.3 [facility] Comment on above: Result Comment: Refe rence intervals for vitamin A determined from [facility] internal studies. Individuals with vitamin A less than 20 ug/dL are considered vitamin A deficient and those with serum concentrations less than 10 ug/dL are considered severely deficient. This test was developed and its performance characteristics determined by [employer]. It has not been cleared or approved by the Food and Drug Administration. Performed at: [address] [id number] MD Shorty Rodríguez Performed By: #### 2 492036, 571172384, 44422907, 3933945, 87488533, 4288785, 8249376, 5358394, 62080151, 92177842, 910401862, 1655396, 5550485, 93124477, 8739369, 1299469, 7527706, 8270815 ####[facility] [address] [place] [address] Vit B1on 03-24-2023 Thiamine (Bld) [Moles/Vol] 171.7 nmol/L Invalid Interpretation Code 66.5-200.0 [facility] Comment on above: Result Comment: This test was developed and its performance characteristics determined by [employer] It has not been cleared or approved by the Food and Drug Administration. Performed at: [address] [id number] MD Shorty Rodríguez Performed By: #### 2 690489, 570549986, 96910135, 7638013, 78478348, 9249961, 0614065, 9555951, 90155830, 32243806, 032358411, 0295270, 5887064, 54202506, 7938217, 2142339, 0527306, 5425461 ####[facility] [address] [place] [address] Zinc Lvlon 03-24-2023 Zinc [Mass/Vol] 85 microgram/dL Invalid Interpretation Code 44-115 [facility] Comment on above: Result Comment: This test was developed and its performance characteristics determined by [employer] It has not been cleared or approved by the Food and Drug Administration. Detection Limit = 5 Performed at: [facility] [id number] MD Shorty Rodríguez Performed By: #### 2 882960, 824792142, 76942130, 4743914, 98486863, 4892793, 6154419, 6296125, 73314819, 69277384, 035965752, 5337634, 6550598, 02232291, 6898231, 0396805, 2009330, 2415511 ####[facility] [address] [place] [address] PTH Intacton 03-20-2023 Parathyrin.intact [Mass/Vol] 17 pg/mL Invalid Interpretation Code [facility] Comment on above: Result Comment: Perf ormed at: [facility] [address] [id number] PhD Cordelia Madera Performed By: #### 1 [id number] #### [facility] [address] [place] [address] Auto Diffon 03-19-2023 Basophils/100 WBC (Bld) 1.1 % Normal 0.0-2.0 [facility] Comment on above: Order Comment: Order Added by Discern Expert. Performed By: #### 2 209812, [id number], 87715761, 1835475, 77803173, 6408501, 1798588, 5863227, 72446471, 03967467, 581395769, 8705614, 0320305, 58047953, 2978162, 2220992, 9326678, 5705816 ####[facility] [address] [place] [address] Basophils/Leukocytes Auto (Bld) [Pure # fraction] 0.1 E9/L Normal 0.0-0.2 [facility] Comment on above: Order Comment: Order Added by Discern Expert. Performed By: #### 2 076034, 550171858, 26604106, 1063250, 93756276, 6257625, 4987066, 3664660, 68432471, 87567694, 717205643, 7059913, 7638789, 09605079, 8908067, 8314164, 4168585, 9259814 ####[facility] [address] [place] [address] Eosinophils/100 WBC (Bld) 4.1 % Normal 0.0-8.0 [facility] Comment on above: Order Comment: Order Added by Discern Expert. Performed By: #### 2 916603, 645483733, 89473919, 6157338, 72056290, 9823550, 5808551, 6806403, 85720902, 89614649, 899218799, 1645986, 5546982, 71483981, 6283048, 5924644, 0376624, 6764857 ####[facility] [address] [place] [address] Eosinophils/Leukocytes Auto (Bld) [Pure # fraction] 0.4 E9/L Normal 0.0-0.5 [facility] Comment on above: Order Comment: Order Added by Discern Expert. Performed By: #### 2 268380, 510039788, 58386649, 0792438, 34483826, 7075191, 0891181, 5123891, 01966647, 75609874, 121541554, 1769700, 4216466, 75201449, 4879134, 7246129, 5635065, 7010089 ####[address] [address] Lymphocytes/100 WBC (Bld) 20.5 % Normal 14.0-50.0 [facility] Comment on above: Order Comment: Order Added by Discern Expert. Performed By: #### 2 694983, 484887714, 13084449, 6666346, 38367142, 0234933, 2789447, 4864905, 02249559, 79788841, 721162820, 7557767, 8125358, 26355104, 0112208, 8441051, 6549835, 3893041 ####[place] [address] [place] [address] Lymphocytes/Leukocytes Auto (Bld) [Pure # fraction] 2.1 E9/L Normal 1.0-4.0 [facility] Comment on above: Order Comment: Order Added by Discern Expert. Performed By: #### 2 249296, 374029204, 96596727, 5532019, 02030024, 5278762, 9218114, 6288495, 06973408, 23344221, 584578124, 4490896, 7083556, 65723383, 8862825, 6175440, 5487389, 6770811 ####[facility] [address] [place] [address] Monocytes/100 WBC (Bld) 7.6 % Normal 4.0-14.0 [facility] Comment on above: Order Comment: Order Added by Discern Expert. Performed By: #### 2 725933, 326161619, 89006532, 5495821, 46454739, 3751770, 2099157, 8231265, 85667875, 85688674, 931965725, 1841992, 1014246, 79165258, 9964065, 5220311, 3408095, 0760737 ####[place] [address] [place] [address] Monocytes/Leukocytes Auto (Bld) [Pure # fraction] 0.8 E9/L Normal 0.2-1.0 [facility] Comment on above: Order Comment: Order Added by Discern Expert. Performed By: #### 2 352213, 581401812, 35856070, 4178157, 80195225, 5530264, 0551129, 1452635, 43832934, 42271900, 875783955, 8805404, 7194320, 56700187, 8021253, 5933725, 7701310, 1107458 ####[place] [address] [place] [address] Neutrophils/100 WBC (Bld) 66.7 % Normal 36.0-75.0 [facility] Comment on above: Order Comment: Order Added by Discern Expert. Performed By: #### 2 144877, 674891944, 87636023, 9709208, 80706912, 5987375, 3986616, 8224385, 00740302, 65020233, 298815789, 4566886, 3756742, 26025126, 8862618, 4927301, 4285043, 6312951 ####[facility] [address] [place] [address] Neutrophils/Leukocytes Auto (Bld) [Pure # fraction] 6.8 E9/L Normal 2.0-7.5 [facility] Comment on above: Order Comment: Order Added by Discern Expert. Performed By: #### 2 440927, 185895081, 88276136, 7666381, 67228517, 1269776, 4323164, 8680929, 59620159, 37181964, 310636868, 6397916, 8170517, 41054403, 6337803, 8371672, 0800672, 3519432 ####[address] [place] [address] CBC w/ Auto Diffon 3 Erythrocyte distribution width (RBC) [Ratio] 16.0 % High 10.9-14.2 [facility] Comment on above: Performed By: #### 2 633496, 928470057, 34856968, 4119048, 50711373, 1269886, 5078809, 2281192, 67264790, 12232070, 474316822, 4451452, 8339561, 58983470, 2854791, 3920112, 3528910, 1728748 ####[address] [place] [address] Hematocrit (Bld) [Volume fraction] 37.1 % Normal 34.0-46.0 [facility] Comment on above: Performed By: #### 2 851354, 650223917, 16616158, 0435760, 45992096, 0403079, 0556451, 7068845, 49864531, 75324859, 314005403, 3735470, 8285966, 59538796, 3263552, 0397205, 5307300, 4025194 ####[address] [place] [address] Hemoglobin (Bld) [Mass/Vol] 12.6 g/dL Normal 12.0-16.0 [facility] Comment on above: Performed By: #### 2 151226, 053944967, 82560571, 6004304, 10913234, 6190874, 8165827, 7162700, 18730568, 29201375, 876645477, 9020403, 3429027, 42706580, 1596807, 3794711, 8230192, 3560269 ####[facility] [address] [place] [address] MCH (RBC) [Entitic mass] 31.2 pg Normal 27.0-34.0 [facility] Comment on above: Performed By: #### 2 690140, 502696291, 33779756, 9267521, 88158367, 5790463, 7899844, 2907027, 22109617, 44350289, 504777060, 1462678, 1056925, 42569138, 3543065, 1170038, 8511002, 3172603 ####[address] [address] MCHC (RBC) [Mass/Vol] 33.9 g/dL Normal 31.4-36.0 [facility] Comment on above: Performed By: #### 2 064500, 942769714, 24019101, 7016142, 83023611, 2261124, 2567566, 5520488, 01944694, 04718867, 228402865, 1945299, 7222742, 98137608, 0351365, 1258438, 8502197, 1774984 ####[address] [address] MCV (RBC) [Entitic vol] 92.0 fL Normal 80.0-100.0 [facility] Comment on above: Performed By: #### 2 540381, 997226919, 41281474, 8065232, 33847171, 9294235, 7276526, 3655106, 30732199, 14953193, 865272022, 3983724, 6364391, 16920720, 3293334, 2957490, 7496288, 6895221 ####[facility] [address] [place] [address] Platelet mean volume (Bld) [Entitic vol] 9.8 fL Normal 6.4-10.8 [facility] Comment on above: Performed By: #### 2 851432, 189978970, 42161849, 8925751, 78184172, 4256689, 4720540, 5165846, 90217425, 46248290, 588779999, 0664069, 0155840, 04311801, 6895751, 8593091, 5349781, 6442111 ####[facility] [address] [place] [address] Platelets (Bld) [#/Vol] 369.0 E9/L Normal 150.0-500. 0 [facility] Comment on above: Performed By: #### 2 780078, 548767447, 62493584, 6742906, 26747179, 6930064, 2975861, 9189239, 06786288, 14540525, 685872005, 6251278, 0810823, 62155464, 4091604, 2152645, 5790700, 5419782 ####[facility] [address] [place] [address] RBC (Bld) [#/Vol] 4.0 E12/L Low 4.3-5.9 [facility] Comment on above: Performed By: #### 2 431190, 375932557, 13929196, 5879737, 96732283, 7782110, 4120109, 4438948, 74694221, 06761522, 133571408, 7530490, 5758617, 82895426, 7326099, 2019689, 6215286, 3001339 ####[facility] [address] [place] [address] WBC corrected for nucl RBC Auto (Bld) [#/Vol] 10.1 E9/L Normal 4.0-11.0 [facility] Comment on above: Performed By: #### 2 717869, 422425987, 20137990, 5693473, 37559879, 4841548, 5807531, 3006708, 97625050, 15961890, 761428630, 3742262, 5381741, 69013209, 5362450, 9487511, 9434581, 2277893 ####[facility] [address] [place] [address] CHEMISTRYOrdered By: SYSTEM SYSTEM on 03-19-2023 25-hydroxyvitamin D3 [Mass/Vol] 43.1 ng/mL Normal 30.0 - 100.0 ng/mL [facility] Remisol Albumin [Mass/Vol] 4.0 g/dL Normal 3.3 - 5.0 gm/dL [facility] Remisol Albumin/Globulin [Mass ratio] 1.2 {ratio} Normal 1.1 - 2.2 [facility] Remisol ALP [Catalytic activity/Vol] 61 [iU]/d Normal 21 - 98 Int._Unit/ L [facility] Remisol ALT No additional P-5'-P [Catalytic activity/Vol] 17 [iU]/d Normal 6 - 46 Int._Unit/ L [facility] Remisol Anion gap [Moles/Vol] 9 mmol/L Normal 6 - 16 mEq/L [facility] Remisol AST [Catalytic activity/Vol] 20 [iU]/d Normal 5 - 43 Int._Unit/ L [facility] Remisol Bilirubin [Mass/Vol] 0.4 mg/dL Normal [...] T4 [Mass/Vol] 0.88 ng/dL Normal 0.58 - 1.64 ng/dL [facility] Remisol GFR/1.73 sq M.predicted among non-blacks MDRD (S/P/Bld) [Vol rate/Area] 116 mL/min/1.73 m2 Normal >=59mL/min /1.73 m2 [facility] Chem S Globulin (S) [Mass/Vol] 3.2 g/dL [...] 3.8 mmol/L Normal 3.5 - 5.3 mmol/L [facility] Remisol Protein [Mass/Vol] 7.2 g/dL Normal 6.0 - 7.8 gm/dL [facility]isol Sodium [Moles/Vol] 140 mmol/L Normal 135 - 145 mmol/L [facility] Remisol Transferrin [Mass/Vol] 302 mg/dL Normal 200 - 370 mg/dL [facility]isol Triglyceride [Mass/Vol] 69 mg/dL Normal <=149mg/dL [facility] Remisol TSH Qn 0.61 m[IU]/L Normal 0.34 - 5.60 mcIU/mL [facility]isol Urea nitrogen [Mass/Vol] 12 mg/dL Normal 5 - 21 mg/dL [facility] [place] Urea nitrogen/Creatinine [Mass ratio] 17 mg/mg Normal 10 - 20 [facility] [place] Remisol CHEMISTRYOrdered By: Torres Ulloa on 03-19-2023 HbA1c (Bld) [Mass fraction] 5.8 % Normal <=5.9% [facility] [place] ChemAutoSS CMPon 03-19-2023 Albumin [Mass/Vol] 4.0 g/dL Normal 3.3-5.0 [facility] Comment on above: Performed By: #### 2 750241, 418830006, 50857444, 7966163, 50690837, 2216920, 6762766, 2179317, 70293378, 97811744, 450500232, 6040262, 0230083, 40556839, 4659896, 2818703, 9019746, 6479000 ####[facility] [address] [place] [address] Albumin/Globulin (S) [Mass conc ratio] 1.2 Normal 1.1-2.2 [facility] Comment on above: Performed By: #### 2 107921, 551424154, 30699956, 9926952, 45647929, 5641038, 0691262, 8186437, 12312113, 34422606, 942189659, 5585809, 2879362, 65056799, 3695488, 1851017, 8552293, 4583358 ####[facility] [address] [place] [address] ALP [Catalytic activity/Vol] 61 Int._Unit/L Normal 21-98 [facility] Comment on above: Performed By: #### 2 861098, 711147482, 73848071, 9548449, 50975578, 0087068, 8394235, 8462405, 05782819, 05810854, 244933134, 5426707, 6442187, 83394218, 1063402, 0588126, 8341163, 6096260 ####[facility] [address] [place] [address] ALT No additional P-5'-P [Catalytic activity/Vol] 17 Int._Unit/L Normal 6-46 [facility] Comment on above: Performed By: #### 2 145946, 252414734, 49180388, 5232349, 50084600, 7166356, 1073889, 7899550, 52812707, 59852503, 302644545, 4358816, 7900449, 02953366, 5953158, 2372392, 4644225, 8016565 ####[facility] [address] [place] [address] Anion gap [Moles/Vol] 9 mmol/L Normal 6-16 [facility] Comment on above: Performed By: #### 2 016200, 500478391, 78155034, 8732691, 91969037, 9075335, 7012538, 8938089, 41439030, 76822738, 920240315, 2950695, 7033625, 72832086, 7278351, 6220328, 4621984, 0614700 ####[facility] [address] [place] [address] AST [Catalytic activity/Vol] 20 Int._Unit/L Normal 5-43 [facility] Comment on above: Performed By: #### 2 876167, 909412280, 67473895, 2769773, 58342728, 3196682, 0927334, 5251033, 93469334, 08643145, 420511685, 3965675, 8004700, 73123322, 2006063, 5308316, 3619380, 1393265 ####[facility] [address] [place] [address] Bilirubin [Mass/Vol] 0.4 mg/dL Normal 0.0-1.1 [facility] Comment on above: Performed By: #### 2 795245, 366807742, 69383601, 7652836, 54518891, 7909925, 1290513, 6563230, 98166130, 47193932, 704707616, 1096229, 5509898, 34495636, 9092980, 4924471, 5318612, 0264799 ####[facility] [address] [place] [address] Calcium [Mass/Vol] 9.2 mg/dL Normal 8.9-11.1 [facility] Comment on above: Performed By: #### 2 349900, 309604254, 83953872, 7510992, 40750130, 0425379, 6695631, 6610948, 18002047, 08180708, 207072594, 2808466, 0584633, 34268642, 7539765, 3156745, 0620150, 0211770 ####[facility] [address] [place] [address] Chloride [Moles/Vol] 113 mmol/L High 101-111 [facility] Comment on above: Performed By: #### 2 717983, 355905036, 24596900, 8576734, 30750849, 1983164, 4246493, 1160743, 99642783, 47062782, 532434359, 0296067, 0111783, 67653836, 2329762, 5566168, 1766644, 0309766 ####[facility] [address] [place] [address] CO2 [Moles/Vol] 22 mmol/L Normal 21-31 [facility] Comment on above: Performed By: #### 2 833301, 170335809, 13243988, 3477586, 97611284, 8676408, 6972544, 3939750, 57283005, 20409230, 513438615, 8449407, 5018529, 34617310, 9743075, 3581087, 1567410, 4787419 ####[facility] [address] [place] [address] Creatinine [Mass/Vol] 0.7 mg/dL Normal 0.5-1.3 [facility] Comment on above: Performed By: #### 2 645301, 532491842, 74091956, 5438047, 07984654, 6606364, 1658688, 1581301, 58158427, 31471565, 103061720, 6625881, 9587496, 12128649, 2123761, 6856747, 1351980, 1462602 ####[facility] [address] [place] [address] Globulin (S) [Mass/Vol] 3.2 g/dL Normal 1.4-4.0 [facility] Comment on above: Performed By: #### 2 724511, 689176218, 50766569, 8433253, 46475564, 0994154, 1055821, 7591915, 53321437, 78441289, 898722672, 9724925, 0537824, 82086664, 0489164, 7088242, 2312199, 4608890 ####[facility] [address] [place] [address] Glucose [Mass/Vol] 103 mg/dL Normal 55-199 [facility] Comment on above: Result Comment: If t his glucose result represents a fasting glucose, interpretation should refer to the following reference range: 55-99 mg/dL Performed By: #### 2 617061, 482413556, 10448878, 6915110, 82484072, 8222811, 5336554, 7929289, 63406812, 86630141, 144021681, 3129481, 9496499, 56480000, 4725336, 8081044, 3946964, 5497368 ####[facility] [address] [place] [address] Potassium [Moles/Vol] 3.8 mmol/L Normal 3.5-5.3 [facility] Comment on above: Performed By: #### 2 070036, 066990302, 01217306, 0676693, 13629290, 5923977, 7114794, 4275650, 28876394, 97881946, 757987700, 4321242, 4960084, 32679617, 2250337, 3011523, 6498163, 8117804 ####[facility] [address] [place] [address] Protein [Mass/Vol] 7.2 g/dL Normal 6.0-7.8 [facility] Comment on above: Performed By: #### 2 265964, 901569780, 24966335, 0642266, 10738429, 8183898, 5221152, 6657131, 42416065, 57914865, 800775454, 4848229, 0005217, 36342236, 2689512, 5474099, 9063534, 8656454 ####[facility] [address] [place] [address] Sodium [Moles/Vol] 140 mmol/L Normal 135-145 [facility] Comment on above: Performed By: #### 2 737171, 104928852, 17287742, 8307038, 86344508, 8671041, 0188862, 3867332, 45827125, 55105374, 192640679, 9558545, 1188690, 25279784, 7241200, 8472447, 7930719, 2134439 ####[facility] [address] [place] [address] Urea nitrogen [Mass/Vol] 12 mg/dL Normal 5-21 [facility] Comment on above: Performed By: #### 2 103775, 201894085, 19420338, 3739429, 95615023, 9833932, 1418969, 9743589, 82962262, 56700872, 872028175, 8524348, 7128319, 12281803, 3029264, 0879535, 1933959, 3573255 ####[facility] [address] [place] [address] Urea nitrogen/Creatinine [Mass ratio] 17 No Units Normal 10-20 [facility] Comment on above: Performed By: #### 2 526539, 712794751, 90130787, 4218394, 27841955, 3304005, 7743359, 8197226, 30553364, 23978461, 320574112, 2756433, 9554021, 73597454, 9150881, 6249764, 4471297, 1603934 ####[facility] [address] [place] [address] Consent for Treatmenton 07- Consent for Treatment [id number]#1.00CD:12 7 Normal [facility] Ferritinon 03-19-2023 Ferritin [Mass/Vol] 6 ng/mL Low 11-307 [facility] Comment on above: Result Comment: NORM ALS MEN <30 YRS 16-132 ng/mL MEN >30 YRS 8-338 ng/mL WOMEN (PREMEN) 6-104 ng/mL WOMEN (POSTMEN) 12-210 ng/mL Performed By: #### 2 655222, 223821105, 29763668, 7050975, 21465672, 0916491, 1422341, 5308458, 00275102, 82259111, 176726419, 2568695, 0216467, 56230757, 5687492, 0562931, 4696696, 8380076 ####[facility] [address] [place] [address] Folateon 03-19-2023 Folate [Mass/Vol] 15.6 ng/mL Normal >=6.7 [facility] Comment on above: Performed By: #### 2 166108, 498376977, 49064765, 6272075, 22913920, 7382724, 1831261, 6883370, 29118502, 07035839, 471531148, 7841655, 2914432, 46142859, 8225274, 9568384, 2302815, 3841252 ####[facility] [address] [place] [address] Free T4on 03-19-2023 Free T4 [Mass/Vol] 0.88 ng/dL Normal 0.58-1.64 [facility] Comment on above: Performed By: #### 2 346615, 313620970, 29469247, 6857798, 10408220, 6219078, 7934897, 0884180, 74780338, 53536585, 857288030, 4129920, 2861033, 56014343, 4281500, 0438696, 0671123, 2499124 ####[facility] [address] [place] [address] HEMATOLOGYOrdered By: SYSTEM SYSTEM on 03-19-2023 Basophils/100 [...] HemeAutoSS Platelets (Bld) [#/Vol] 369.0 E9/L Normal 150.0 - 500.0 E9/L [facility] HemeAutoSS RBC (Bld) [#/Vol] 4.0 E12/L Low 4.3 - 5.9 E12/L [facility] HemeAutoSS WBC corrected for nucl RBC Auto (Bld) [#/Vol] 10.1 E9/L Normal 4.0 - 11.0 E9/L [facility] HemeAutoSS KxkZ0ohf 03-19-2023 HbA1c (Bld) [Mass fraction] 5.8 % Normal <=5.9 [facility] Comment on above: Performed By: #### 2 515824, 719827745, 68216939, 6175938, 39790576, 8387377, 2395578, 6200306, 46847731, 29086094, 484450765, 2676886, 8309666, 48654637, 5729272, 2541620, 4437404, 2961449 ####[facility] [address] [place] [address] Ironon 03-19-2023 Iron [Mass/Vol] 69 microgram/dL Normal 35-153 [facility] Comment on above: Performed By: #### 2 754510, 080710842, 10414771, 4554391, 24350078, 9583168, 8145816, 7274685, 20197421, 58733895, 858177552, 5613037, 4085090, 10364152, 3127892, 2014890, 1781550, 1287529 ####[facility] [address] [place] [address] Lipid Panelon 03-19-2023 Cholesterol [Mass/Vol] 167 mg/dL Normal 120-200 [facility] Comment on above: Performed By: #### 2 832696, 947546667, 53372170, 0022913, 48265214, 5391768, 4628830, 8775055, 72604475, 77920414, 485609821, 0537772, 3428518, 32259125, 4718061, 2714374, 7695184, 9477148 ####[facility] [address] [place] [address] Cholesterol in HDL [Mass/Vol] 72 mg/dL Invalid Interpretation Code [facility] Comment on above: Result Comment: HDL > or equal to 60 mg/dL: Low cardiovascular risk HDL < 40 mg/dL : High cardiovascular risk Performed By: #### 2 160944, 545827106, 33070622, 5365202, 21304342, 0582525, 7009210, 3818563, 00871137, 79696599, 397339605, 7218321, 1892499, 27747784, 0596868, 9757328, 1673392, 8778305 ####[facility] [address] [place] [address] Cholesterol in LDL [Mass/Vol] 72 mg/dL Normal <=129 [facility] Comment on above: Performed By: #### 2 108465, 326810009, 81591552, 1973658, 56898239, 7238411, 9739946, 1834888, 03714067, 57923213, 288193267, 6657723, 0252148, 76275548, 7739590, 7937866, 2855552, 2828436 ####[facility] [address] [place] [address] Cholesterol in VLDL [Mass/Vol] 14 mg/dL Normal 7-40 [facility] Comment on above: Performed By: #### 2 519356, 691030550, 58685947, 6389951, 65090357, 7160784, 6083990, 6427980, 58942346, 94264469, 033230030, 8969652, 0414623, 91677801, 8394304, 9046639, 5553102, 0699819 ####[facility] [address] [place] [address] Triglyceride [Mass/Vol] 69 mg/dL Normal <=149 [facility] Comment on above: Performed By: #### 2 468573, 308430800, 34514107, 2869439, 71437783, 6268977, 0718419, 4261762, 31796985, 56305650, 710009168, 9740104, 2112297, 84194873, 9549404, 8744228, 6853435, 7279478 ####[facility] [address] [place] [address] Magnesiumon 03-19-2023 Magnesium [Mass/Vol] 2.0 mg/dL Normal 1.3-2.4 [facility] Comment on above: Performed By: #### 2 546110, 092010772, 93891681, 4993475, 58199574, 8526416, 6362747, 1741575, 31381060, 26923719, 900156840, 5687995, 3616796, 50030867, 6589614, 4133746, 8282068, 6263044 ####[facility] [address] [place] [address] Physician Orderon 03-19-2023 Physician Order [id number]#1.00CD:1 27 Normal [facility] TIBC Calculatedon 03-19-2023 Iron binding capacity [Mass/Vol] 423 microgram/dL High 250-400 [facility] Comment on above: Performed By: #### 2 918807, 579868806, 82862264, 5235072, 69264060, 6508017, 5562299, 9435871, 27693955, 58562614, 129104964, 9046507, 5695398, 27665588, 6235963, 0674858, 8469513, 4212310 ####[facility] [address] [place] [address] Transferrin [Mass/Vol] 302 mg/dL Normal 200-370 [facility] Comment on above: Performed By: #### 2 433334, 647688474, 57785781, 5291938, 76234206, 0461223, 6156508, 4871871, 35597425, 46065399, 526356386, 1472967, 6782207, 08491727, 0764097, 3091950, 2224413, 7193982 ####[address] [place] [address] TSHon 03-19-2023 TSH Qn 0.61 m[IU]/L Normal 0.34-5.60 [facility] Comment on above: Performed By: #### 2 274496, 174627767, 02250631, 7311958, 56204770, 7893172, 5399548, 6708219, 84520939, 66934038, 430955722, 7134240, 5587994, 63797755, 2813032, 0649231, 2976060, 6723645 ####[address] [place] [address] Vit B12on 03-19-2023 Cobalamin (Vitamin B12) [Mass/Vol] 357 pg/mL Normal 50-1500 [facility] Comment on above: Performed By: #### 2 718149, 118194141, 21344634, 6948656, 24439975, 6388347, 2296603, 4780805, 56954769, 05201002, 589658097, 7131528, 2572913, 13867154, 7934484, 9526964, 2462373, 2452205 ####[facility] [address] [place] [address] Vitamin D 25 Hydroxyon 03-19 25-hydroxyvitamin D3 [Mass/Vol] 43.1 ng/mL Normal 30.0-100.0 [facility] Comment on above: Result Comment: Vit alberto D deficiency has been defined as a level of serum 25-OH vitamin D less than 20 ng/mL (1,2) by the [place] [employer] and an Endocrine Society practice guideline. The Endocrine Society further defined vitamin D insufficiency as a level between 21 and 29 ng/mL (2). 1. IOM ([place] of [employer]). 2010. Dietary reference intakes for calcium and D. [place]: The National Academies Press. 2. Willard MF, Luisa HUBBARD, Nestor MALDONADO, et al. Evaluation, treatment, and prevention of vitamin D deficiency: an Endocrine Society clinical practice guideline. JCEM. 2010; 96 (7):1911-30. Performed By: #### 2 951499, 786583898, 17084597, 1143502, 06074664, 8436127, 6526123, 9468934, 70624297, 91781619, 823380189, 1124664, 1766918, 73706527, 5673241, 3598784, 9101175, 7854464 ####[facility] [address] [place] [address] eGFRon 03-19-2023 GFR/1.73 sq M.predicted among non-blacks MDRD (S/P/Bld) [Vol rate/Area] 116 mL/min/1.73 m2 Normal >=59 [facility] Comment on above: Order Comment: Order added by Discern Expert. Result Comment: Content Designer gurpreet kidney disease could be indicated at eGFR's of less than 60 mL/min/1.73m2. Kidney failure is indicated at less than 15 mL/min/1.73m2. Performed By: #### 2 760982, 527733886, 63775187, 9881307, 11193795, 4520403, 4512793, 6611359, 57124594, 85256309, 638711718, 9813049, 4214276, 87343965, 0528534, 5377060, 1712167, 0466653 ####[facility] [address] [place] [address] MRV BRAIN WO/W IVCONon 01-29 MRV BRAIN WO/W IVCON * * *Final Report* * * DATE OF EXAM: Jan 29 2023 1:10PM LN 0336 - MRV BRAIN WO/W IVCON / PROCEDURE REASON: Idiopathic intracranial hypertension * * * * Physician Interpretation * * * * EXAMINATION: MRV BRAIN WO/W IVCON CLINICAL HISTORY: Idiopathic intracranial hypertension. TECHNIQUE: Intracranial 2-D fnaw-bj-ctcpvd and postcontrast MRV with post-processing performed at [...] Unremarkable MRV head with and without contrast. First Coat Operator: PSCB Transcribe Date/Time: Jan 29 2023 2:40P Dictated by : JENNIFER RUVALCABA MD This examination was interpreted and the report reviewed and electronically signed by: JENNIFER RUVALCABA MD on Jan 29 2023 2:44PM EST [id number] Normal [facility] Coding Summary.on 01-19-2023 Coding Summary. CD:[id number] Ww+PG hlYWQ+OI8ZQMVmH60hnWQixS1 wV7XTAUtOUqrtBFCZHDcQFyNs zoSoSI3mlBFoENNp IC8+TH6sNJPmHvgtiXNmo6Q1w BL0R68skk4dNAcinXR1EZMcNv Gozhemj6xjeYg8MCgmSjjcYmO t BHGutU45BRH9fT08Jt52oJJky RLhy2hafCa1EnQaKTUqDGI1uU nnYLrax9LzQIUqE77ihLCzu4J 6 TGWhkTjyvIZpNtEciON9tP5lV Xcrtwfzo4lbfaeuVwu9au26oV Tow8K1sOB4Y7VycjI7IVJplSX g VmdwkWSVsB5whbdqw5jrgxznQ rTtHGLwGIy1CCh3LXYdqLvaHj FrOA27TZB8KDNrdgVtK9WjWSY s qXglBuT6g6M0Bd1GY9VLMwopF 1VNTUFSWTwvdGQ+VP41xn72E8 TgWzyjHed7UXZyRWZ3zKK1xB5 n HJAtERpeb2J0zGP0S1MmisPhe b3jo0uiYIJqHXemH31mcKQbe2 S7FLUuoIR5AETjbIroLgCpzO5 3 Oyc+ZWRfuSowh7PrMemau7izc 7cfvHq0PtrjGZTgldKlaWifTD J3q4RkLa9zRMSwfTF5oFF9yM8 i DeOmAtS3DEoyE978JjFypVMsH ycuM59vG2MmfTV+ATEqSov3FF RyfYtkZA4wU6TzBLYwkhrxmHU m iKvdNT2zXLJblbfoRRCneY9kI YMpY1g2GsEtVlU0FUnrO0LcEK SqqvlfIc86sG3bRuFhEqN6RLa u G9JayrK3TQCwuOWeHTwjAUU7K 65gy9V7UAQbUKYpBZA5oDU1gA 1hbGlnbjogbGVmdDsgdmVydGl j NZqiEVyjQ476MLWsaGcqKkRvI GluZyBEYXRlOiAgMDUvMDgvMj AyMzwvdGQ+BQMzLQD2zQsqDLD n nJRzWQrcXl6tfAgztYpgII0gJ RDmtoxbZCVbqX1vIEKwrFKppJ zfBJ5kMOZgnpyid655XxYdRFJ 0 XGNgsBQyT6CxzP4sUtArODBkE QQlF0PerKImGRioS870FTklVf M2DCZnmtXgO9HpDYKprYwlQuL 0 i4C3Vi0Ge1WccavzE4AhqYBpR pBuUvcuSQu0Q8FtVjzcyAQ+PC 92NUNyOM74TQf3HPF6kYrnNKo i QVNgX1PtvE0nPuRnKOEnYYPmL yc+PHRhYmxlIHdpZHRoPScxMD QcMdKdwUppVO4gAv0fBOHhBYI v uObweQPwHqNdq9cqGDGtKZhpF M5yiRauJ0IdiKM2QKHei3m2Ss 22T85wR2GsfPM+YCWsvIN0bNL 0 aZ5pLbNwCqI6NPhyR435JnGvg ZBlTkrkh4qvy0fxeJe5JoX3CN WzziHesIvsVRN8o6FrWs25G23 s IHdpZHRoPSIxNSUiIHZhbGlnb c8hpI8xKo7+HNLysNA2cOA8lQ 9cOjNqXrD3DXwyN648VlArhNX v Cajgs1lcv3uimNb7WiHqEGYpr dJekPicMFE6s6EsMj80H8VtrO gai8AaRjv1hy48yWMmx0V1kHU 9 G0VlRBJlozpgtEEfaPzgWT6iP PExkdsbXXCzbT1bEBVdA0r5Qu DgGqH8NAfjA4GsfxX3JZYsrJT g SCZocMPPgR0nwgzej3zxuzpsD uNaGSLxLPp7WSk9KFNlwLphBd KmVGN0HdM6DOW1kAMtcT1dzSq n rootbO2qIbt+CGR1oYPsjKRGW J7bVfzteUY+CWSdDTN2wCtjWB pyIECzmA6bNFWyB0p7AlHjEcT 1 ZEcvF1NeqmF0XJJnaVNgLYVdj RQBcK4cyjhds4dozpxzUwKuWZ SsZHt7WXj0SSIhjTflGlXlSXO 0 HuP1RHO4eCKodP8jgOuayswlh G9wOyc+AxaiqXegCPJ0LPt5A2 NpZcz6GTAszXnmDZ2xxTRpXKq u Wp4coTopfGxuVF1sYODolkzlu 185VnKwy0pjGVNpeICqFZfkNS S4Y51bz4E9JBChNHIjADW7zKX 4 hL6axTvyacbraLNrvYpnhhXlp VdsUEliZGbzX334MFQdwUeqNf UaDLn7J2IqNrx0GVMcjBycLV4 n cSCaYJtuNi1glAhxqTqyFX0sS QGvlklni890MaEhx9yiJOHrkT KzVToiNWU1L25vn9R6GNVmPVD w GFV3mKR7mL5hhRrymkbohEGql PnfleBmsEpiEArtVFemZ585GW UnpSnmBmVrmIz5U5NaBtp5MLI z zJspMY0umNRzBBsiVw2zaBvgl WveKM3dSMOpwatwt148BkPez0 qaVELhvFYeIUwgZRD3J43qc4W 6 VAKbVGYhUQJ2nAJ1cU9nrRhpa jogbGVmdDsgdmVydGljYWwtYW xsJ572PUNtfGbeNmXzhQpqjiC g EIpgQNu9Y5MmGvhfgYM+PC90Y IAaLM80nSOvaBHmw0guiTt2Fd KtUCRrRCN9yNeaOMclj0ObDAY t N48fkMNig5J4UEPjyYaucSZhE xJbrUW3dI9aCYyvohyog9yxqo msFgftm7ezzx54nJ98X91wWXf p CYBeHWCxGNDdVKObwHnarv8bq G9wIi8+WMGdxRY1aVF2oX1bDO BvDdO5FGjbP096DeLkcZIwWzp j y6ucf9bbtCb5WuR9MIKjjiPne UaqNLC6s3TlKw28P89nEXicSD MqFZYtDULgVVLggUnnfk1smU5 w Ii8+EYJwpBS7iVV8gJ7hYlErE eH2YUjxL617AwBwrPKfDsimQ5 3bZ3AxhYL+GWPcUvi6FKSpeHz s YS0yfEGsBVvoKk5lEWZ2GzGdM aCuFPgxX2BkYWYlwbfzfglalD F8MYFlIZWwkF22Mz1ttItoHNB w iASSyW2ntyzww4tytqvhMqHqZ XKgDAv0NPr1IBIkmMwhAtCsAD I9EeN4CEJ1sKCtkX6zoNbhyni g oZ7rY0VxRORcirnvYa04oE1eQ jCqAgJ2RNgjJkd+UkFCQVRJTi diXnOLJ3aJWVFNMR90IL19vBW g q2B8mTH1R6YkXMSsmfmwqpzcc GD3JBFmPEFjbO79lXNnKQcpPc 5cf7H0a106XIQzKULglU48Xv0 u pIuiONNnaKEWeS4mvxrok2mnt wsjWfWjQZBnUOh7LWf7LIMxeR blAeEfAKY1KxL5GSZ8yUDtgE6 h kLbheywrsA7fRze+MDQvMDUvM Ir0CRsgoQW+OKGkPKH2aIouRX wpHFKwmU2hFXWpF2f4HpYmMoS 1 MZtwH2IiUUMrwnyqOr31yW8vG aZqFpJ9NNjbI7GrvwL7NBWwdR OuOKkoMHP3M16bu6J4TTLyEFZ w UJV4fJI6aM6cbWjngoipeVIqm DqukmEyfGxpPJgrKGynX942VS KukQnqAjE0YNvmUSNlXT38UC6 8 dHQpx0L1jNP5X5QeQWHfdlqae qlvdYQ9FYAaEXYjmT37iRDjMS ryOe6rf4M0w643KYTdXVMmcI9 7 Nq1puKqlFBQfrVJBvX4zarwvm 2mjzazfWmZqRVLyKXo3PHw6ZP EhhUtuOgCjWZW8EvB7RNH3pDA h kY5dfUsznttqaE6yFep+RmVtY EheWL23ZD64cROaq9C4gJR3J9 XwAKHiarmibltvxIC4PJZpOMG w yM78sDIzSNjwJl6oi9W4x639E WBiTHJprP38Lc3eoSmzAMMvsR FAqJ5yvownl2hazczjWtWfSER w HZp5RTk7DAJpdIvaOwTuLYR6D sK6UGZ5sGOdcA2mdLiroycznN 9wOyc+WO7qedqkirA4OL99EO5 8 F8PhAupmfNSstFV+PHRhYmxlI HdpZHRoPScxMDAlJyBzdHlsZT 3lQr4fEQJhAFEmbQipfWQpAqO j d7zlVOKjJYmnRR7peZxrH4Nyn TO2JNErc0i1Ql34V98nZ6QxaV A+AAHpbBP6jEA9fX1uQxFaOaW 2 QUzyP927WjKzkUJwFnhgv5umr 3ywnRk7XsMcZJQncyJunXdzAA A7t6ZpPn68E36kRLkwOYDtNUD y KYLaRWSxyPhncu0dzP0oMo8+P JSxhXL7gWQ7aS0dCbGfFwS6XR vgH500EjIxuGUrPsbgD55yP2A v dXA+QHWzYzz0UGBdwQyuOZ2mo FJkNJomZq0aQWM2PpAdBdVjBA uxK4BsQAMbdgdisfacwWN0AEZ u JMRbkH82Zq7fxVfuGp2kOREgY UH0OONswNRbZ4ExlN5mOnPjKE NbPGUyP4OxaFXbDOfnJ725EId l PqX2ISTztpMjN6QkSMCklOthU pD7a7W7Ru0ZmMqumYDgPS2fTx MaBYm5Y9HlKoc8WTVnmYsaLL9 n gARaQUsgDb0wtBjqpDunEB9mC GZwirtez208KiDco5txRSLjjT MaKUyeYFM0T17jk9K5KYUpCTP w HOM0aSZ6qT4vcMfymrksqBAkr VwxsdRlnNueQZtrPIatC219PG UloOqbQsEYYfy4G8RsEpy5UQE z rFshQC7xoKIbRUgoPg2rmNbmc ZgnVQ9iNKTlmurdv612DiLay6 mgMVEylUOiSWmvVLO6U00sq2Z 6 FZIoQIYrJBJ8xHE7uZ4xaGnal jogbGVmdDsgdmVydGljYWwtYW mtM331AEZrhKbmIw9DNui0L1A k Fnb2ITMeoAvuBO8yrSUuKLdfO x6ltJefdSxzBR7mBIDwkwdba7 89RtOge1isWYNunENgNWzgXFU 7 E02lq6J9DFYqMYVfLFV1bYP9u O2esIewsgydmBCzrLjdfxMpoC cwMLgmEViyV820OQCrbPdiPgW h eWVyOjwvdGQ+XC45tq78O4UhR udlMnp2RGBvYBO4fDT4cC2cSG ZsXPjdd9I8kIS9Y1VbtnUdqs4 j j2maJKVl (more content not included)... Normal [facility] C Urineon 01-17-2023 Bacteria identified Cx Nom (U) Microbiology PROCEDURE: Urine Culture [R1] SOURCE: U CleanCatch BODY SITE: COLLECTED DATE/TIME: 01/15/2023 12:51 EDT RECEIVED DATE/TIME: 01/15/2023 13:46 EDT START DATE/TIME: 01/15/2023 13:46 EDT FREE TEXT SOURCE: Beto Shea PA-C, PA-C, Beto FINAL REPORTS Final Report [] Verified Date/Time: 01/17/2023 08:10 EDT <10,000 cfu/ml Mixed skin contaminants Performing Locations R1: This test was performed at: [facility], [address] [place] [address], [address] , , Normal [facility] Comment on above: Performed By: #### 2 [id number], [id number] ####[facility] [address] [place] [address] Auto Diffon 01-15-2023 Basophils/100 WBC (Bld) 0.9 % Normal 0.0-2.0 [facility] Comment on above: Order Comment: Order Added by Discern Expert. Performed By: #### 1 [id number] #### [facility] [address] [place] [address] Basophils/Leukocytes Auto (Bld) [Pure # fraction] 0.1 E9/L Normal 0.0-0.2 [facility] Comment on above: Order Comment: Order Added by Discern Expert. Performed By: #### 1 [id number] #### [facility] [address] [place] [address] Eosinophils/100 WBC (Bld) 1.9 % Normal 0.0-8.0 [facility] Comment on above: Order Comment: Order Added by Discern Expert. Performed By: #### 1 [id number] #### [facility] [address] [place] [address] Eosinophils/Leukocytes Auto (Bld) [Pure # fraction] 0.2 E9/L Normal 0.0-0.5 [facility] Comment on above: Order Comment: Order Added by Discern Expert. Performed By: #### 1 [id number] #### [facility] [address] [place] [address] Lymphocytes/100 WBC (Bld) 25.5 % Normal 14.0-50.0 [facility] Comment on above: Order Comment: Order Added by Discern Expert. Performed By: #### 1 [id number] #### [facility] [address] [place] [address] Lymphocytes/Leukocytes Auto (Bld) [Pure # fraction] 2.2 E9/L Normal 1.0-4.0 [facility] Comment on above: Order Comment: Order Added by Discern Expert. Performed By: #### 1 [id number] #### [facility] [address] [place] [address] Monocytes/100 WBC (Bld) 7.2 % Normal 4.0-14.0 [facility] Comment on above: Order Comment: Order Added by Discern Expert. Performed By: #### 1 8693266 #### [facility] [address] [place] [address] Monocytes/Leukocytes Auto (Bld) [Pure # fraction] 0.6 E9/L Normal 0.2-1.0 [facility] Comment on above: Order Comment: Order Added by Discern Expert. Performed By: #### 1 [id number] #### [facility] [address] [place] [address] Neutrophils/100 WBC (Bld) 64.5 % Normal 36.0-75.0 [facility] Comment on above: Order Comment: Order Added by Discern Expert. Performed By: #### 1 1360205 #### [facility] [address] [place] [address] Neutrophils/Leukocytes Auto (Bld) [Pure # fraction] 5.6 E9/L Normal 2.0-7.5 [facility] Comment on above: Order Comment: Order Added by Discern Expert. Performed By: #### 1 [id number] #### [facility] [address] [place] [address] B hCG Qualon 01-15-2023 Beta hCG Ql Negative Normal [facility] Comment on above: Performed By: #### 2 510938, 4007559, 56596138, 46024910, 86647514, 4971940, 0782511 ####[facility] [address] [place] [address] BMPon 01-15-2023 Creatinine [Mass/Vol] 0.8 mg/dL Normal 0.5-1.3 [facility] Comment on above: Performed By: #### 2 879213, 4016216, 28419190, 15899826, 61704491, 2226125, 6998567 ####[facility] [address] [place] [address] Urea nitrogen [Mass/Vol] 12 mg/dL Normal 5-21 [facility] Comment on above: Performed By: #### 2 280664, 7627944, 07052068, 50658050, 10445000, 6665180, 1251460 ####[facility] [address] [place] [address] Urea nitrogen/Creatinine [Mass ratio] 15 No Units Normal 10-20 [facility] Comment on above: Performed By: #### 2 612709, 8937660, 96381453, 00757798, 85911766, 4503367, 6165771 ####[facility] [address] [place] [address] Anion gap [Moles/Vol] 12 mmol/L Normal 6-16 [facility] Comment on above: Performed By: #### 2 708152, 1599632, 60593435, 09459255, 66583548, 9382588, 5734104 ####[facility] [address] [place] [address] Calcium [Mass/Vol] 8.8 mg/dL Low 8.9-11.1 [facility] Comment on above: Performed By: #### 2 227661, 1382018, 44505892, 15576350, 60984895, 8912312, 3769859 ####[facility] [address] [place] [address] Chloride [Moles/Vol] 109 mmol/L Normal 101-111 [facility] Comment on above: Performed By: #### 2 731403, 2512154, 21732027, 96235501, 61873878, 1600052, 8163660 ####[facility] [address] [place] [address] CO2 [Moles/Vol] 20 mmol/L Low 21-31 [facility] Comment on above: Performed By: #### 2 880705, 4611649, 13507824, 59233370, 89217569, 2653811, 8173688 ####[facility] [address] [place] [address] Glucose [Mass/Vol] 89 mg/dL Normal 55-199 [facility] Comment on above: Result Comment: If t his glucose result represents a fasting glucose, interpretation should refer to the following reference range: 55-99 mg/dL Performed By: #### 2 168517, 4238991, 59716196, 09359102, 13668613, 0485592, 9485032 ####[facility] [address] [place] [address] Potassium [Moles/Vol] 3.8 mmol/L Normal 3.5-5.3 [facility] Comment on above: Performed By: #### 2 891823, 3317946, 49525086, 55659205, 53906750, 1029514, 9810201 ####[facility] [address] [place] [address] Sodium [Moles/Vol] 137 mmol/L Normal 135-145 [facility] Comment on above: Performed By: #### 2 077943, 9494123, 04940848, 07507878, 06882027, 7807410, 2951158 ####[facility] [address] [place] [address] CBC w/ Auto Diffon 3 Erythrocyte distribution width (RBC) [Ratio] 15.4 % High 10.9-14.2 [facility] Comment on above: Performed By: #### 1 4207773 #### [facility] [address] [place] [address] Hematocrit (Bld) [Volume fraction] 35.5 % Normal 34.0-46.0 [facility] Comment on above: Performed By: #### 1 0938381 #### [facility] [address] [place] [address] Hemoglobin (Bld) [Mass/Vol] 11.5 g/dL Low 12.0-16.0 [facility] Comment on above: Performed By: #### 1 0531501 #### [facility] [address] [place] [address] MCH (RBC) [Entitic mass] 30.9 pg Normal 27.0-34.0 [facility] Comment on above: Performed By: #### 1 5855433 #### [facility] [address] [place] [address] MCHC (RBC) [Mass/Vol] 32.5 g/dL Normal 31.4-36.0 [facility] Comment on above: Performed By: #### 1 5811683 #### [facility] [address] [place] [address] MCV (RBC) [Entitic vol] 95.0 fL Normal 80.0-100.0 [facility] Comment on above: Performed By: #### 1 8649866 #### [facility] [address] [place] [address] Platelet mean volume (Bld) [Entitic vol] 9.4 fL Normal 6.4-10.8 [facility] Comment on above: Performed By: #### 1 2762561 #### [facility] [address] [place] [address] Platelets (Bld) [#/Vol] 325.0 E9/L Normal 150.0-500. 0 [facility] Comment on above: Performed By: #### 1 4856715 #### [facility] [address] [place] [address] RBC (Bld) [#/Vol] 3.7 E12/L Low 4.3-5.9 [facility] Comment on above: Performed By: #### 1 0918624 #### [facility] [address] [place] [address] WBC corrected for nucl RBC Auto (Bld) [#/Vol] 8.8 E9/L Normal 4.0-11.0 [facility] Comment on above: Performed By: #### 1 3229433 #### [facility] [address] [place] [address] CHEMISTRYOrdered By: SYSTEM SYSTEM on 01-15-2023 Albumin [Mass/Vol] 3.7 g/dL Normal 3.3 - 5.0 gm/dL [facility]isol Albumin/Globulin [Mass ratio] 1.2 {ratio} Normal 1.1 - 2.2 [facility] ALP [Catalytic activity/Vol] 65 [iU]/d Normal 21 - 98 Int._Unit/ L [facility] ALT No additional P-5'-P [Catalytic activity/Vol] 13 [iU]/d Normal 6 - 46 Int._Unit/ L [facility] Anion gap [Moles/Vol] 12 mmol/L Normal 6 - 16 mEq/L [facility] AST [Catalytic activity/Vol] 21 [iU]/d Normal 5 - 43 Int._Unit/ L [facility] Bilirubin [Mass/Vol] 0.5 mg/dL Normal [...] 0.8 mg/dL Normal 0.5 - 1.3 mg/dL [facility] GFR/1.73 sq M.predicted among non-blacks MDRD (S/P/Bld) [Vol rate/Area] 99 mL/min/1.73 m2 Normal >=59mL/min /1.73 m2 [facility] [place] S Globulin (S) [Mass/Vol] 3.0 g/dL Normal 1.4 - 4.0 gm/dL [facility] Glucose [Mass/Vol] 89 mg/dL Normal 55 - 199 mg/dL [facility] Potassium [Moles/Vol] 3.8 mmol/L Normal 3.5 - 5.3 mmol/L [facility] Protein [Mass/Vol] 6.7 g/dL Normal 6.0 - 7.8 gm/dL [facility] Sodium [Moles/Vol] 137 mmol/L Normal 135 - 145 mmol/L [facility] Troponin I.cardiac [Mass/Vol] pg/mL Low 10.10 - 27.10 pg/mL [facility] Urea nitrogen [Mass/Vol] 12 mg/dL Normal 5 - 21 mg/dL [facility] Urea nitrogen/Creatinine [Mass ratio] 15 mg/mg Normal 10 - 20 [facility] Consent for Treatmenton Consent for Treatment [id number]#[id number]:12 7 Normal [facility] Discharge Instructionson Discharge Instructions [id number]:1 27 Normal [facility] ED Clinical Summaryon 2022 ED Clinical Summary (Inserted Image. Jordana ble to display) [place] [address] ED Clinical Summary Person Information Name: SHAZIA CHOU [place] Age: 32 Years : 1990 Sex: Female Language: Scottish PCP: Jennie Ames DO Marital Status: Phone: [phone] MRN: Visit Id: Visit Reason: Back pain; [...] 01/15/2023 13:37:28 01/15/2023 13:37:28 01/15/2023 13:37:28 ADDRESS: [address] [place] [id number] [facility] DOC NOTES: MEDICAL INFORMATION: Prescriptions Given: Medications [...] up: With: Address: When: Jennie Ames [address], Mic C, [facility] [address] [place] [address] Business (1) In 3 days 01/18/2023 DIAGNOSIS: Chest pain Normal [facility] ED Note-Physicianon 01-16-20 ED Note-Physician Basic Information [...] Ames In 3 days 01/18/2023 EDT [address], Mic C, Michael [address] [place] [address]- [facility] (1) Additional Instructions: Patient Education Nonspecific Chest Pain, Adult Attestation Patient seen and evaluated by the physician diet assistant. Attending physician was present in the emergency department and supervised care. This visit was performed by both the physician and an APC. I performed all aspects of the MDM as documented. This report was transcribed using voice recognition software. Every effort was made to ensure accuracy, however, inadvertently computerized freight checker mistakes may be present. Appropriate healthcare PPE [...] (at bedti (more content not included)... Normal [facility] Comment on above: Result Comment: Elec tronically [...] these instructions at home: Medicines ? Take tksk-tjp-hwfnrrq and prescription medicines only as told by [...] by your (more content not included)... Normal [facility] ED Patient Summaryon 023 ED Patient Summary (Inserted Image. Jordana ble to [address] [address] Patient Discharge Instructions Person Information Name: SHAZIA CHOU Age: 32 Years Arrival Date: 01/15/2023 10:47:30 Discharge Diagnosis: Chest pain Primary Care Physician: Jennie Ames DO Provider Information Primary Provider: Bakair Chester DO Advanced Forest Ranger Technician:Beto Shea PA-C The exam and treatment you received in the Emergency Department were for an urgent problem and are not intended as complete care. It is important that you follow up with a doctor, nurse practitioner, or physician?s diet assistant for ongoing care. If your symptoms [...] Follow-up Instructions: With: Address: When: Jennie Ames [facility] [place] [address] odalys , [address] [address] Business (1) In 3 days 01/18/2023 In the event that this physician does not participate in your insurance network, please consult with your insurance company to find a nearby participating provider. Patient Education Materials: Nonspecific Chest Pain, Adult A MESSAGE TO ALL PATIENTS REGARDING OPIOIDS PRESCRIPTION OPIOIDS: WHAT YOU NEED TO KNOW Prescription opioids can be used to help relieve sxiizzdk-gx-lyshpm pain and are often prescribed following a [...] guidance from the Food and Drug Administration (www.fda.gov/Drugs/Resour cesForYou). ? Visit www.cdc.gov/drugoverdose to learn about the risks of opioids abuse and overdose. ? If you believe you may be struggling with addiction, tell your health child care centre director and ask for guidance or call SAMHSA?S National Helpline at 5-550-160-HELP. v Source (more content not included)... Normal [facility] HEMATOLOGYOrdered By: SYSTEM SYSTEM on 01-15-2023 Basophils/100 [...] 32.5 g/dL Normal 31.4 - 36.0 gm/dL [facility] HemeAutoSS MCV (RBC) [Entitic vol] 95.0 fL Normal 80.0 - 100.0 fL [facility] [place] HemeAutoSS Platelet mean volume (Bld) [Entitic vol] 9.4 fL Normal 6.4 - 10.8 fL [facility] [place] HemeAutoSS Platelets (Bld) [#/Vol] 325.0 E9/L Normal 150.0 - 500.0 E9/L [facility] [place] [place] HemeAutoSS RBC (Bld) [#/Vol] 3.7 E12/L Low 4.3 - 5.9 E12/L [facility] [place] HemeAutoSS WBC corrected for nucl RBC Auto (Bld) [#/Vol] 8.8 E9/L Normal 4.0 - 11.0 E9/L [facility] [place] [place] HemeAutoSS Hep Func Panelon 01-15-2023 Albumin [Mass/Vol] 3.7 g/dL Normal 3.3-5.0 [facility] Comment on above: Performed By: #### 2 029029, 8812003, 08623392, 42786813, 49123060, 4316569, 4592558 ####[facility] [address] [place] [address] Albumin/Globulin (S) [Mass conc ratio] 1.2 Normal 1.1-2.2 [facility] Comment on above: Performed By: #### 2 770260, 5694477, 87478928, 07784346, 71189528, 6130407, 7707014 ####[facility] [address] [place] [address] ALP [Catalytic activity/Vol] 65 Int._Unit/L Normal 21-98 [facility] Comment on above: Performed By: #### 2 324670, 3452288, 97156745, 38402305, 17551394, 2353497, 1573683 ####[facility] [address] [place] [address] ALT No additional P-5'-P [Catalytic activity/Vol] 13 Int._Unit/L Normal 6-46 [facility] Comment on above: Performed By: #### 2 726558, 5527341, 00120256, 22607962, 26413536, 5403865, 8222295 ####[facility] [address] [place] [address] AST [Catalytic activity/Vol] 21 Int._Unit/L Normal 5-43 [facility] Comment on above: Performed By: #### 2 845956, 2207989, 74091582, 72116988, 43480323, 4568672, 9581266 ####[facility] [address] [place] [address] Bilirubin [Mass/Vol] 0.5 mg/dL Normal 0.0-1.1 [facility] Comment on above: Performed By: #### 2 170146, 8924206, 72702381, 61243612, 93354401, 0747390, 9702015 ####[facility] [address] [place] [address] Bilirubin.direct [Mass/Vol] 0.2 mg/dL Normal 0.1-0.4 [facility] Comment on above: Performed By: #### 2 344297, 9638564, 40290558, 04117448, 64222617, 4598104, 2231066 ####[facility] [address] [place] [address] Bilirubin.indirect [Mass or moles/Vol] 0.3 mg/dL Normal 0.1-0.9 [facility] Comment on above: Performed By: #### 2 190200, 0029537, 81331129, 04902032, 56341953, 7991209, 3150630 ####[facility] [address] [place] [address] Globulin (S) [Mass/Vol] 3.0 g/dL Normal 1.4-4.0 [facility] Comment on above: Performed By: #### 2 457659, 4713701, 02299547, 56725496, 71030169, 5937156, 7384117 ####[facility] [address] [place] [address] Protein [Mass/Vol] 6.7 g/dL Normal 6.0-7.8 [facility] Comment on above: Performed By: #### 2 397100, 3665311, 48377397, 11933398, 68941285, 2537308, 9795207 ####[facility] [address] [place] [address] SEROLOGYOrdered By: Yoli Robert on 01-15-2023 Beta hCG Ql Negative (01/15/23 11:31 AM) Normal [facility] [place] Man Sero Troponin 0 Hr.on 01-15-2023 Troponin I.cardiac [Mass/Vol] ng/mL Low 10.10-27.1 0 [facility] Comment on above: Result Comment: The 95% CI (Confidence Interval) PPV (Positive Predictive Value) for myocardial infarction in females is 38 pg/mL, in males 51 pg/mL. The results should be used in conjunction with clinical conditions of myocardial infarction. (Access High Sensitivity Troponin I Instructions For Use, [employer], April 2018) Performed By: #### 2 176202, 6436284, 46322958, 61824318, 36073708, 0236829, 6676504 ####[facility] [address] [place] [address] UA With Cult Reflexon 2022 Bacteria LM Ql (Urine sed) 1+ /HPF Abnormal Trace [facility] Comment on above: Performed By: #### 2 492178, 53070037 ####[facility] [address] [place] [address] Bilirubin Ql (U) Negative Normal Negative [facility] Comment on above: Performed By: #### 2 690306, 09564735 ####[facility] [address] [place] [address] Clarity (U) SL CLOUDY Invalid Interpretation Code [facility] Comment on above: Performed By: #### 2 921373, 61695581 ####[facility] [address] [place] [address] Color (U) YELLOW Normal Yellow [facility] Comment on above: Performed By: #### 2 226248, 27623313 ####[facility] [address] [place] [address] Crystals LM Ql (Urine sed) Present Normal [facility] Comment on above: Performed By: #### 2 839094, 78919996 ####[address] [address] Epithelial cells.squamous LM.HPF (Urine sed) [#/Area] 3-4 Normal 0-2 [facility] Comment on above: Performed By: #### 2 980803, 57060234 ####[address] [address] Glucose Test strip (U) [Mass/Vol] Negative Normal Negative [facility] Comment on above: Performed By: #### 2 625482, 02123744 ####[address] [address] Hemoglobin Ql (U) Negative Normal Negative [facility] Comment on above: Performed By: #### 2 968803, 68228149 ####[address] [address] Ketones (U) [Mass/Vol] Negative Normal Negative [facility] Comment on above: Performed By: #### 2 427352, 60407163 ####[address] [address] Glen[place].plasma/G[place] .RBC (Bld) [Mass ratio] 0-3 Normal 0-3 [facility] Comment on above: Performed By: #### 2 382292, 56724388 ####[address] [address] Nitrite Ql (U) Negative Normal Negative [facility] Comment on above: Performed By: #### 2 969826, 00140113 ####[address] [address] pH (U) 7.5 [pH] Invalid Interpretation Code 5.0-9.0 [facility] Comment on above: Performed By: #### 2 658405, 05356335 ####[address] [place] [address] Protein (U) [Mass/Vol] Negative Normal Negative [facility] Comment on above: Performed By: #### 2 427652, 46936660 ####[place] 3868157 Specific gravity (U) [Rel density] 1.015 Invalid Interpretation Code 1.005-1.03 0 [facility] Comment on above: Performed By: #### 2 375776, 75396481 ####[place] 3868157 Type of Urine collection method Clean Catch Normal [facility] Comment on above: Performed By: #### 2 409909, 96320120 ####[place] [address] Urobilinogen Qn (U) 0.2 {Lucila'U}/dL Normal 0.0-1.0 [facility] Comment on above: Performed By: #### 2 545193, 07363890 ####[place] [address] WBC Auto Ql (U) 1+ Abnormal Negative [facility] Comment on above: Performed By: #### 2 269591, 22988133 ####[facility] [address] [place], [place] [address] WBC LM.HPF (Urine sed) [#/Area] 0-5 Normal 0-5 [facility] Comment on above: Performed By: #### 2 885164, 60089041 ####[place] 38[address]157 URINALYSISOrdered By: Destin santana on 01-15-2023 Bacteria LM Ql (Urine sed) 1+ /HPF Invalid Interpretation Code Trace/HPF [facility] UA Auto SS Bilirubin Ql (U) Negative (01/15/23 12:51 PM) Normal Negative [facility] UA Auto SS Clarity (U) SL CLOUDY Invalid Interpretation Code FT UA Auto SS Color (U) Yellow (01/15/23 12:51 PM) Normal Yellow [facility] UA Auto SS Crystals LM Ql (Urine sed) Present (01/15/23 12:51 PM) Normal [facility] UA Auto SS Epithelial cells.squamous LM.HPF (Urine sed) [#/Area] 3-4 /HPF Normal 0-2/HPF [facility] UA Aut o SS Glucose Test strip (U) [Mass/Vol] Negative (01/15/23 12:51 PM) Normal Negative [facility] UA Auto SS Hemoglobin Ql (U) Negative (01/15/23 12:51 PM) Normal Negative [facility] UA Auto SS Ketones (U) [Mass/Vol] Negative (01/15/23 12:51 PM) Normal Negative [facility] UA Auto SS [place].plasma/[place] .RBC (Bld) [Mass ratio] 0-3 /HPF Normal 0-3/HPF [facility] UA Auto SS Nitrite Ql (U) Negative (01/15/23 12:51 PM) Normal Negative [facility] UA Auto SS pH (U) 7.5 *NA* (01/15/23 12:51 PM) Invalid Interpretation Code 5.0 - 9.0 [facility] [place] UA Auto SS Protein (U) [Mass/Vol] Negative (01/15/23 12:51 PM) Normal Negative [facility] UA Auto SS Specific gravity (U) [Rel density] 1.015 *NA* (01/15/23 12:51 PM) Invalid Interpretation Code 1.005 - 1.030 [facility] [place] UA Auto SS UA Spec Desc Clean Catch (01/15/23 12:51 PM) Normal [facility] [place] UA Auto SS Urobilinogen Qn (U) 0.8826856 {Lucila'U}/dL Normal 0.0 - 1.0 EU/dL [facility] UA Auto SS WBC Auto Ql (U) 1+ *ABN* (01/15/23 12:51 PM) Invalid Interpretation Code Negative [facility] [place] UA Auto SS WBC LM.HPF (Urine sed) [#/Area] 0-5 /HPF Normal 0-5/HPF [facility] UA Auto SS XR Chest Single Viewon [...] mGy = na DAP = na Normal [facility] eGFRon 01-15-2023 GFR/1.73 sq M.predicted among non-blacks MDRD (S/P/Bld) [Vol rate/Area] 99 mL/min/1.73 m2 Normal >=59 [facility] Comment on above: Order Comment: Order added by Discern Expert. Result Comment: Content Designer gurpreet kidney disease could be indicated at eGFR's of less than 60 mL/min/1.73m2. Kidney failure is indicated at less than 15 mL/min/1.73m2. Performed By: #### 2 214938, 5451840, 24474795, 16605821, 37239086, 2868997, 3707442 ####[facility] [address] [place], [place] [address] IntraOperative Documentson 0 12-11-2022 IntraOperative Documents [id number]:1 27 Normal [facility] BLOOD BANKOrdered By: Myrna Contreras on 12-05-2022 ABO/Rh Interp Negative Invalid Interpretation Code [facility] [place] ABSC Gel Interp Negative (12/05/22 7:24 AM) Normal [facility] [place] Subsection URINALYSISOrdered By: Kimberli Martin on 12-05-2022 Bilirubin Ql (U) Negative (12/05/22 10:05 AM) Normal Negative [facility] [place] Auto SS Clarity (U) Clear (12/05/22 10:05 AM) Normal Clear [facility] [place]A Auto SS Color (U) Yellow (12/05/22 10:05 AM) Normal Yellow [facility] [place] Auto SS Epithelial cells.squamous LM.HPF (Urine sed) [#/Area] 0-2 /HPF Normal 0-2/HPF [facility] [place] Aut o SS Glucose Test strip (U) [Mass/Vol] Negative (12/05/22 10:05 AM) Normal Negative [facility] UA Auto SS Hemoglobin Ql (U) Negative (12/05/22 10:05 AM) Normal Negative [facility] UA Auto SS Ketones (U) [Mass/Vol] Negative (12/05/22 10:05 AM) Normal Negative [facility] UA Auto SS [place].plasma/Glenarden .RBC (Bld) [Mass ratio] 0-3 /HPF Normal 0-3/HPF [facility] [place]A Auto SS Nitrite Ql (U) Negative (12/05/22 10:05 AM) Normal Negative [facility] UA Auto SS pH (U) 6.5 *NA* (12/05/22 10:05 AM) Invalid Interpretation Code 5.0 - 9.0 [facility] [place] Auto SS Protein (U) [Mass/Vol] Negative (12/05/22 10:05 AM) Normal Negative [facility] [place]A Auto SS Specific gravity (U) [Rel density] 1.015 *NA* (12/05/22 10:05 AM) Invalid Interpretation Code 1.005 - 1.030 [facility] [place]A Auto SS UA Spec Desc Catheter (12/05/22 10:05 AM) Normal [facility] [place]A Auto SS Urobilinogen Qn (U) 1.0345152 {Lucila'U}/dL Normal 0.0 - 1.0 EU/dL [facility] [place]A Auto SS WBC Auto Ql (U) Negative (12/05/22 10:05 AM) Normal Negative [facility] [place]A Auto SS WBC LM.HPF (Urine sed) [#/Area] 0-5 /HPF Normal 0-5/HPF [facility] [place]A Auto SS CHEMISTRYOrdered By: SYSTEM SYSTEM on 11-21-2022 Anion gap [Moles/Vol] 13 mmol/L Normal 6 - 16 mEq/L [facility] Chloride [Moles/Vol] 109 mmol/L Normal 101 - 1 11 mmol/L [facility] Remisol CO2 [Moles/Vol] 17 mmol/L Low 21 - 31 mmol/L [facility] Creatinine [Mass/Vol] 0.6 mg/dL Normal 0.5 - 1.3 mg/dL [facility] GFR/1.73 sq M.predicted among blacks MDRD (S/P/Bld) [Vol rate/Area] mL/min/1.73 m2 Normal >=59mL/min /1.73 m2 [facility] Chem S GFR/1.73 sq M.predicted among non-blacks MDRD (S/P/Bld) [Vol rate/Area] mL/min/1.73 m2 Normal >=59mL/min /1.73 m2 [facility] Chem S Potassium [Moles/Vol] 3.6 mmol/L Normal 3.5 - 5.3 mmol/L [facility] Sodium [Moles/Vol] 135 mmol/L Normal 135 - 145 mmol/L [facility] Urea nitrogen [Mass/Vol] 14 mg/dL Normal 5 - 21 mg/dL [facility] COAGULATIONOrdered By: Genaro Robert on 11-21-2022 aPTT Coag (PPP) [Time] 30.4 s Normal 25.1 - 36.5 second(s) [facility] Auto Coag INR Coag (PPP) [Relative time] 0.9 {INR} Invalid Interpretation Code [facility] Auto Coag PT Coag (PPP) [Time] 9.9 s Normal 9.4 - 1 2.5 second(s) [facility] Auto Coag HEMATOLOGYOrdered By: Shasta Eller on 11-21-2022 Erythrocyte distribution width (RBC) [Ratio] 14.0 % Normal 10.9 - 14.2 % [facility] HemeAutoSS Hematocrit (Bld) [Volume fraction] 38.2 % [...] HemeAutoSS Platelets (Bld) [#/Vol] 270.0 E9/L Normal 150.0 - 500.0 E9/L [facility] [place] HemeAutoSS RBC (Bld) [#/Vol] 4.0 E12/L Low 4.3 - 5.9 E12/L [facility] [place] HemeAutoSS WBC corrected for nucl RBC Auto (Bld) [#/Vol] 13.7 E9/L High 4.0 - 11.0 E9/L [facility] HemeAutoSS CNOVon 11-20-2022 CNOV Office Visit ([facility] ) ----- SHAZIA CHOU ([id number]) 1990 F Date Time Provider Department 11/20/22 8:00 AM MARGO MANZANO During your visit today, we recorded the following information about you: Pulse Blood pressure Weight Height 67/minute 137/81 85.7 kg 1.702 m Last Period 10/23/22 Margo Manzano MD 11/20/2022 10:33 AM Signed [facility] New Patient Evaluation Consulting [...] due to congenital deformity, seen in the [facility] for: Idiopathic intracranial hypertension [...] her eyes. She has never seen an cupola liner. 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 Idiopathic intracranial [...] she agreed. She needs to follow with cupola liner every 6 months. In some patients with intracranial hypertension, there might be a concurrent transverse sinus stenosis and transverse sinus stenting may resolve the symptoms. I will do MRV. --HTN --H depression --Headache: there are a (more content not included)... Normal [facility] CBC AUTO DIFFon 10-30-2022 BASO # 0.0 103/ul Normal 0.0-0.1 [facility] Comment on above: Performed By: #### C JENNIE PATRICK LIPA #### [facility] [address] [place] [address] Dr. Manuel Sandhu Basophils/100 WBC (Bld) 0.5 % Normal 0.2-2.0 [facility] Comment on above: Performed By: #### C JENNIE PATRICK LIPA #### [facility] [address] [address] [address] Manuel Sandhu EO # 0.1 103/ul Normal 0.0-0.7 [facility] Comment on above: Performed By: #### C JENNIE PATRICK LIPA #### [facility] [address] [place] [address] Dr. Manuel Sandhu Eosinophils/100 WBC (Bld) 1.6 % Normal 0.9-7.0 [facility] Comment on above: Performed By: #### C JENNIE PATRICK LIPA #### [facility] [address] [place] [address] Dr. Manuel Sandhu Erythrocyte distribution width (RBC) [Ratio] 13.8 % Normal 11.0-15.0 [facility] Comment on above: Performed By: #### C MP, JENNIE, LIPA #### [facility] [address] [place] [address] Dr. Manuel Sandhu Hematocrit (Bld) [Volume fraction] 38.7 % Normal 36.0-48.0 [facility] Comment on above: Performed By: #### C MP, JENNIE, LIPA #### [facility] [address] [place] [address] Dr. Manuel Sandhu Hemoglobin (Bld) [Mass/Vol] 12.9 g/dL Normal 12.0-16.0 [facility] Comment on above: Performed By: #### C MP JENNIE, LIPA #### [facility] [address] [place] [address] Dr. Manuel Sandhu IG # 0.03 10e3/ul Normal 0.00-0.03 [facility] Comment on above: Performed By: #### C CELINA JENNIE, LIPA #### [facility] [address] [place] [address] Dr. Manuel Sandhu IG % 0.4 % Normal 0.0-0.5 [facility] Comment on above: Performed By: #### C CELINA, JENNIE, LIPA #### [facility] [address] [place] [address] Dr. Manuel Sandhu LYMPH # 2.1 103/ul Normal 1.2-3.8 [facility] Comment on above: Performed By: #### C MP, JENNIE, LIPA #### [facility] [address] [place] [address] Dr. Manuel Sandhu Lymphocytes/100 WBC (Bld) 25.1 % Normal 20.5-60.0 [facility] Comment on above: Performed By: #### C MP, JENNIE, LIPA #### [facility] [address] [place] [address] Dr. Manuel Sandhu MANUAL DIFF REQ NO Normal [facility] Comment on above: Performed By: #### C MP JENNIE, LIPA #### [facility] [address] [place] [address] Dr. Manuel Sandhu MCH (RBC) [Entitic mass] 32.0 pg Normal 26.7-34.0 [facility] Comment on above: Performed By: #### C MP JENNIE, LIPA #### [facility] [address] [place] [address] Dr. Manuel Sandhu MCHC (RBC) [Mass/Vol] 33.3 g/dL Normal 29.9-35.2 [facility] Comment on above: Performed By: #### C CELINA JENNIE, LIPA #### [facility] [address] [place] [address] Dr. Manuel Sandhu MCV (RBC) [Entitic vol] 96.0 fL Normal 81.0-99.0 [facility] Comment on above: Performed By: #### C CELINA JENNIE, LIPA #### [facility] [address] [place] [address] Dr. Manuel Sandhu MONO # 0.5 103/ul Normal 0.3-0.8 [facility] Comment on above: Performed By: #### C CELINA JENNIE, LIPA #### [facility] [address] [place] [address] Dr. Manuel Sandhu Monocytes/100 WBC (Bld) 5.7 % Normal 1.7-12.0 [facility] Comment on above: Performed By: #### C MP JENNIE, LIPA #### [facility] [address] [place] [address] Dr. Manuel Sandhu NEUT # 5.6 103/ul Normal 1.4-6.5 [facility] Comment on above: Performed By: #### C MP JENNIE, LIPA #### [facility] [address] [place] [address] Dr. Manuel Sandhu Neutrophils/100 WBC (Bld) 66.7 % Normal 43.0-75.0 [facility] Comment on above: Performed By: #### C MP JENNIE, LIPA #### [facility] [address] [place] [address] Dr. Manuel Sandhu Platelet mean volume (Bld) [Entitic vol] 10.9 fL Normal 9.5-13.5 [facility] Comment on above: Performed By: #### C MP, JENNIE, LIPA #### [facility] [address] [address] [address] Manuel Sandhu PLT 310 103/ul Normal 150-450 [facility] Comment on above: Performed By: #### C MP, JENNIE, LIPA #### [facility] [address] [place] [address] Dr. Manuel Sandhu RBC 4.03 106/ul Critically low 4.20-5.40 [facility] Comment on above: Performed By: #### C CELINA JENNIE, LIPA #### [facility] [address] [place] [address] Dr. Manuel Sandhu WBC 8.4 103/ul Normal 4.0-11.0 [facility] Comment on above: Performed By: #### C JENNIE PATRICK, LIPA #### [facility] [address] [place] [address] Dr. Manuel Sandhu ER URINE PROFILEon 3 Bilirubin Ql (U) Negative Normal NEGATIVE [facility] Comment on above: Performed By: #### U MICRO, ERUR #### [facility] [address] [place] [address] Dr. Manuel Sandhu Clarity (U) CLEAR Normal CLEAR [facility] Comment on above: Performed By: #### U MICRO, ERUR #### [facility] [address] [place] [address] Dr. Manuel Sandhu Color (U) LT. YELLOW Normal YELLOW [facility] Comment on above: Performed By: #### U MICRO, ERUR #### [facility] [address] [place] [address] Dr. Manuel Sandhu ERUAHD A micrscopic examina tion will be performed if indicated. Normal [facility] Comment on above: Performed By: #### U MICRO, ERUR #### [facility] [address] [address] [address] Manuel Sandhu Glucose Ql (U) Negative Normal NEGATIVE [facility] Comment on above: Performed By: #### U MICRO, ERUR #### [facility] [address] [address] [address] Manuel Sandhu Hemoglobin Ql (U) LARGE Abnormal NEGATIVE [facility] Comment on above: Performed By: #### U MICRO, ERUR #### [facility] [address] [address] [address] Manuel Sandhu Ketones Ql (U) Negative Normal NEGATIVE [facility] Comment on above: Performed By: #### U MICRO, ERUR #### [facility] [address] [place] [address] Dr. Manuel Sandhu LEUKOCYTES TRACE Abnormal NEGATIVE [facility] Comment on above: Performed By: #### U MICRO, ERUR #### [facility] [address] [address] [address] Manuel Sandhu Nitrite Ql (U) Negative Normal NEGATIVE [facility] Comment on above: Performed By: #### U MICRO, ERUR #### [facility] [address] [address] [address] Manuel Sandhu pH (U) 6.5 [pH] Normal 5-9 [facility] Comment on above: Performed By: #### U MICRO, ERUR #### [facility] [address] [address] [address] Manuel Sandhu SPEC GRAVITY <=1.005 Abnormal 1.005-<=1. 025 [facility] Comment on above: Performed By: #### U MICRO, ERUR #### [facility] [address] [address] [address] Manuel Sandhu UA PROTEIN Negative Normal NEGATIVE/ TRACE [facility] Comment on above: Performed By: #### U MICRO, ERUR #### [facility] [address] [address] [address] Manuel Sandhu UR MICRO IND INDICATED Normal [facility] Comment on above: Performed By: #### U MICRO, ERUR #### [facility] [address] [address] [address] Manuel Sandhu Urobilinogen Qn (U) 0.2 {Lucila'U}/dL Normal 0.2 - 1. 0 [facility] Comment on above: Performed By: #### U MICRO, ERUR #### [facility] [address] [place] [address] Dr. Manuel Sandhu PROF CHEM 8 (BAS METB)on Anion gap [Moles/Vol] 11.7 mmol/L Normal [facility] Comment on above: Performed By: #### C MP, JENNIE, LIPA #### [facility] [address] [place] [address] Dr. Manuel Sandhu Calcium [Mass/Vol] 9.1 mg/dL Normal 8.5-10.1 [facility] Comment on above: Performed By: #### C MP, JENNIE, LIPA #### [facility] [address] [place] [address] Dr. Manuel Sandhu Chloride [Moles/Vol] 105 mmol/L Normal 98-107 [facility] Comment on above: Performed By: #### C MP, JENNIE, LIPA #### [facility] [address] [place] [address] Dr. Manuel Sandhu CO2 [Moles/Vol] 26.8 mmol/L Normal 21.0-32.0 [facility] Comment on above: Performed By: #### C MP, JENNIE, LIPA #### [facility] [address] [place] [address] Dr. Manuel Sandhu Creatinine [Mass/Vol] 0.62 mg/dL Normal 0.55-1.02 [facility] Comment on above: Performed By: #### C MP, JENNIE, LIPA #### [facility] [address] [place] [address] Dr. Manuel Sandhu EGFR-AF SAO TOMEAN >60 Normal >=60 [facility] Comment on above: Performed By: #### C MP, JENNIE, LIPA #### [facility] [address] [place] [address] Dr. Manuel Sandhu EGFR-NON AF SAO TOMEAN >60 Normal >=60 [facility] Comment on above: Performed By: #### C JENNIE PATRICK, LIPA #### [facility] [address] [address] [address] Manuel Sandhu Glucose [Mass/Vol] 92 mg/dL Normal 74-106 [facility] Comment on above: Performed By: #### C JENNIE PATRICK, LIPA #### [facility] [address] [place] [address] Dr. Manuel Sandhu Potassium [Moles/Vol] 3.5 mmol/L Normal 3.5-5.1 [facility] Comment on above: Performed By: #### C JENNIE PATRICK, LIPA #### [facility] [address] [place] [address] Dr. Manuel Sandhu Sodium [Moles/Vol] 140 mmol/L Normal 136-145 [facility] Comment on above: Performed By: #### C JENNIE PATRICK LIPA #### [facility] [address] [place] [address] Dr. Manuel Sandhu Urea nitrogen [Mass/Vol] 8.0 mg/dL Normal 7.0-18.0 [facility] Comment on above: Performed By: #### C JENNIE PATRICK LIPA #### [facility] [address] [place] [address] Dr. Manuel Sandhu Urea nitrogen/Creatinine [Mass ratio] 12.9 mg/mg Normal [facility] Comment on above: Performed By: #### C JENNIE PATRICK LIPA #### [facility] [address] [place] [address] Dr. Manuel Sandhu URINE MICROSCOPIC ONLYon BACTERIA NONE SEEN Normal NONE SEEN [facility] Comment on above: Performed By: #### U MICRO, ERUR #### [facility] [address] [place] [address] Dr. Manuel Sandhu Bacteria identified Cx Nom (U) NOT INDICATED Normal [facility] Comment on above: Performed By: #### U MICRO, ERUR #### [facility] [address] [place] [address] Dr. Manuel Sandhu CAST NONE SEEN Normal NONE SEEN [facility] Comment on above: Performed By: #### U MICRO, ERUR #### [facility] [address] [address] [address] Manuel Sandhu Crystals LM Nom (Urine sed) NONE SEEN Normal NONE SEEN [facility] Comment on above: Performed By: #### U MICRO, ERUR #### [facility] [address] [address] [address] Manuel Sandhu Epithelial cells LM Ql (Urine sed) FEW Abnormal NONE SEEN /RARE [facility] Comment on above: Performed By: #### U MICRO, ERUR #### [facility] [address] [address] [address] Manuel Sandhu MUCOUS TRACE Abnormal NONE SEEN [facility] Comment on above: Performed By: #### U MICRO, ERUR #### [facility] [address] [place] [address] Dr. Manuel Sandhu RBC 5-10 Abnormal 0-2 [facility] Comment on above: Performed By: #### U MICRO, ERUR #### [facility] [address] [address] [address] Manuel Sandhu WBC 2-5 Abnormal NONE SEEN [facility] Comment on above: Performed By: #### U MICRO, ERUR #### [facility] [address] [place] [address] Dr. Manuel Sandhu No Panel InformationOrdered By: Dorita Niño on 08-19-2022 CSF Glucose 55 mg/dL 40-70 [facility] CSF Total Protein 24 mg/dL 15-45 [facility] CBC AUTO DIFFon 08-16-2022 BASO # 0.1 103/ul Normal 0.0-0.1 [facility] Comment on above: Performed By: #### U MICRO, ERUR #### [facility] [address] [place] [address] Dr. Manuel Sandhu Basophils/100 WBC (Bld) 0.4 % Normal 0.2-2.0 [facility] Comment on above: Performed By: #### U MICRO, ERUR #### [facility] [address] [place] [address] Dr. Manuel Sandhu EO # 0.2 103/ul Normal 0.0-0.7 [facility] Comment on above: Performed By: #### U MICRO, ERUR #### [facility] [address] [place] [address] Dr. Manuel Sandhu Eosinophils/100 WBC (Bld) 1.8 % Normal 0.9-7.0 [facility] Comment on above: Performed By: #### U MICRO, ERUR #### [facility] [address] [place] [address] Dr. Manuel Sandhu Erythrocyte distribution width (RBC) [Ratio] 13.6 % Normal 11.0-15.0 [facility] Comment on above: Performed By: #### U MICRO, ERUR #### [facility] [address] [place] [address] Dr. Manuel Sandhu Hematocrit (Bld) [Volume fraction] 35.8 % Critically low 36.0-48.0 [facility] Comment on above: Performed By: #### U MICRO, ERUR #### [facility] [address] [place] [address] Dr. Manuel Sandhu Hemoglobin (Bld) [Mass/Vol] 12.2 g/dL Normal 12.0-16.0 [facility] Comment on above: Performed By: #### U MICRO, ERUR #### [facility] [address] [place] [address] Dr. Manuel Sandhu IG # 0.05 10e3/ul Critically high 0.00-0.03 [facility] Comment on above: Performed By: #### U MICRO, ERUR #### [facility] [address] [place] [address] Dr. Manuel Sandhu IG % 0.4 % Normal 0.0-0.5 [facility] Comment on above: Performed By: #### U MICRO, ERUR #### [facility] [address] [place] [address] Dr. Manuel Sandhu LYMPH # 2.0 103/ul Normal 1.2-3.8 [facility] Comment on above: Performed By: #### U MICRO, ERUR #### [facility] [address] [address] [address] Manuel Sandhu Lymphocytes/100 WBC (Bld) 18.1 % Critically low 20.5-60.0 [facility] Comment on above: Performed By: #### U MICRO, ERUR #### [facility] [address] [place] [address] Dr. Manuel Sandhu MANUAL DIFF REQ NO Normal [facility] Comment on above: Performed By: #### U MICRO, ERUR #### [facility] [address] [place] [address] Dr. Manuel Sandhu MCH (RBC) [Entitic mass] 32.0 pg Normal 26.7-34.0 [facility] Comment on above: Performed By: #### U MICRO, ERUR #### [facility] [address] [place] [address] Dr. Manuel Sandhu MCHC (RBC) [Mass/Vol] 34.1 g/dL Normal 29.9-35.2 [facility] Comment on above: Performed By: #### U MICRO, ERUR #### [facility] [address] [place] [address] Dr. Manuel Sandhu MCV (RBC) [Entitic vol] 94.0 fL Normal 81.0-99.0 [facility] Comment on above: Performed By: #### U MICRO, ERUR #### [facility] [address] [place] [address] Dr. Manuel Sandhu MONO # 0.7 103/ul Normal 0.3-0.8 [facility] Comment on above: Performed By: #### U MICRO, ERUR #### [facility] [address] [place] [address] Dr. Manuel Sandhu Monocytes/100 WBC (Bld) 5.8 % Normal 1.7-12.0 [facility] Comment on above: Performed By: #### U MICRO, ERUR #### [facility] [address] [place] [address] Dr. Manuel Sandhu NEUT # 8.2 103/ul Critically high 1.4-6.5 [facility] Comment on above: Performed By: #### U MICRO, ERUR #### [facility] [address] [address] [address] Manuel Sandhu Neutrophils/100 WBC (Bld) 73.5 % Normal 43.0-75.0 [facility] Comment on above: Performed By: #### U MICRO, ERUR #### [facility] [address] [place] [address] Dr. Manuel Sandhu Platelet mean volume (Bld) [Entitic vol] 11.3 fL Normal 9.5-13.5 [facility] Comment on above: Performed By: #### U MICRO, ERUR #### [facility] [address] [place] [address] Dr. Manuel Sandhu PLT 284 103/ul Normal 150-450 [facility] Comment on above: Performed By: #### U MICRO, ERUR #### [facility] [address] [place] [address] Dr. Manuel Sandhu RBC 3.81 106/ul Critically low 4.20-5.40 [facility] Comment on above: Performed By: #### U MICRO, ERUR #### [facility] [address] [place] [address] Dr. Manule Sandhu WBC 11.2 103/ul Critically high 4.0-11.0 [facility] Comment on above: Performed By: #### U MICRO, ERUR #### [facility] [address] [place] [address] Dr. Manuel Sandhu D-DIMERon 08-16-2022 D-DIMER 0.34 mg/L FEU Normal <=0.[address] [facility] Comment on above: Performed By: #### U MICRO, ERUR #### [facility] [address] [place] [address] Dr. Manuel Sandhu D-DIMER COMMENTS SEE BELOW Normal [facility] Comment on above: Result Comment: Incr [...] Performed By: #### U MICRO, ERUR #### [facility] [address] [place] [address] Dr. Manuel Sandhu PROF CHEM 8 (BAS METB)on Anion gap [Moles/Vol] 10.6 mmol/L Normal [facility] Comment on above: Performed By: #### I NFLUAB #### [facility] [address] [place] [address] Dr. Manuel Sandhu Calcium [Mass/Vol] 9.2 mg/dL Normal 8.5-10.1 [facility] Comment on above: Performed By: #### I NFLUAB #### [facility] [address] [place] [address] Dr. Manuel Sandhu Chloride [Moles/Vol] 103 mmol/L Normal 98-107 [facility] Comment on above: Performed By: #### I NFLUAB #### [facility] [address] [place] [address] Dr. Manuel Sandhu CO2 [Moles/Vol] 28.4 mmol/L Normal 21.0-32.0 [facility] Comment on above: Performed By: #### I NFLUAB #### [facility] [address] [place] [address] Dr. Manuel Sandhu Creatinine [Mass/Vol] 0.61 mg/dL Normal 0.55-1.02 [facility] Comment on above: Performed By: #### I NFLUAB #### [facility] [address] [place] [address] Dr. Manuel Sandhu EGFR-AF SAO TOMEAN >60 Normal >=60 [facility] Comment on above: Performed By: #### I NFLUAB #### [facility] [address] [place] [address] Dr. Manuel Sandhu EGFR-NON AF SAO TOMEAN >60 Normal >=60 [facility] Comment on above: Performed By: #### I NFLUAB #### [facility] [address] [address] [address] Manuel Sandhu Glucose [Mass/Vol] 90 mg/dL Normal 74-106 [facility] Comment on above: Performed By: #### I NFLUAB #### [facility] [address] [address] [address] Manuel Sandhu Potassium [Moles/Vol] 4.0 mmol/L Normal 3.5-5.1 [facility] Comment on above: Performed By: #### I NFLUAB #### [facility] [address] [address] [address] Manuel Sandhu Sodium [Moles/Vol] 138 mmol/L Normal 136-145 [facility] Comment on above: Performed By: #### I NFLUAB #### [facility] [address] [address] [address] Manuel Sandhu Urea nitrogen [Mass/Vol] 16.0 mg/dL Normal 7.0-18.0 [facility] Comment on above: Performed By: #### I NFLUAB #### [facility] [address] [address] [address] Manuel Sandhu Urea nitrogen/Creatinine [Mass ratio] 26.2 mg/mg Normal [facility] Comment on above: Performed By: #### I NFLUAB #### [facility] [address] [address] [address] Manuel Sandhu XR CHEST 1 Von [...] by: YOLI FRANKS Date: 2022-08-16 14:16 Normal [facility] Albumin [Mass/volume] in Ser um or PlasmaOrdered By: Sangeetha Peña on 08-12-2022 Albumin [Mass/Vol] 3.2 g/dL 3.2-5.5 [facility] Basophils Auto (Bld) [#/Vol] Ordered By: Sangeetha Peña on 08-12-2022 Basophils (Bld) [#/Vol] 0.1 10*3/uL 0.0-0.2 [facility] Basophils/100 WBC Auto (Bld) Ordered By: Sangeetha Peña on 08-12-2022 Basophils/100 WBC (Bld) 0.7 % . [facility] C reactive protein [Mass/vol ume] in Serum or PlasmaOrdered By: Sangeetha Peña on 08-12-2022 CRP [Mass/Vol] 0.5 mg/dL 0.0-1.0 [facility] Creatinine and Glomerular fi ltration rate.predicted panel (S/P/Bld)Ordered By: Sangeetha Peña on 08-12-2022 Creatinine [Mass/Vol] 0.65 mg/dL 0.44-1.03 [facility] Eosinophils Auto (Bld) [#/Vo l]Ordered By: Sangeetha Peña on 08-12-2022 Eosinophils (Bld) [#/Vol] 0.4 10*3/uL 0.0-0.45 [facility] Eosinophils/100 WBC Auto (Bl d)Ordered By: Sangeetha Peña on 08-12-2022 Eosinophils/100 WBC (Bld) 5.2 % . [facility] Erythrocyte distribution wid th Auto (RBC) [Ratio]Ordered By: Sangeetha Peña on 08-12-2022 Erythrocyte distribution width (RBC) [Ratio] 14.4 % 11.9-15.3 [facility] Erythrocyte sedimentation ra te by Photometric methodOrdered By: Dorita Niño on 08-12-2022 ESR Photometric method (Bld) [Velocity] 3 mm/hr 0-19 [facility] Estimated glomerular filtrat ion rate (GFR) non- AmericanOrdered By: Sangeetha Peña on 08-12-2022 GFR/1.73 sq M.predicted among non-blacks MDRD (S/P/Bld) [Vol rate/Area] > 60 mL/Min [facility] Folate [Mass/volume] in Seru m or PlasmaOrdered By: Lizzeth Malave on 08-12-2022 Folate [Mass/Vol] 15.3 ng/mL >5.9 [facility] Comment on above: Folate reference ran ge: >5.9 ng/mlThe WHO technical consultation on folate and vitamin [id number] has determined that folate concentrations lessthan 4 ng/ml are considered deficient. Globulin Calc (S) [Mass/Vol] Ordered By: Sangeetha Peña on 08-12-2022 Globulin (S) [Mass/Vol] 2.4 g/dL [facility] HCG ( test) IA.rapi d Ql (U)Ordered By: Lizzeth Malave on 08-12-2022 HCG ( test) Ql (U) Negative [facility] Hematocrit Auto (Bld) [Volum e fraction]Ordered By: Sangeetha Peña on 08-12-2022 Hematocrit (Bld) [Volume fraction] 34.6 % 34.0-46.4 [facility] Hemoglobin [Mass/volume] in BloodOrdered By: Sangeetha Peña on 08-12-2022 Hemoglobin (Bld) [Mass/Vol] 11.3 g/dL 11.8-15.4 [facility] Laboratory - Chemistry and C hemistry - challengeOrdered By: Lizzeth Malave on 08-12-2022 Cobalamin (Vitamin B12) [Mass/Vol] 610 pg/mL 180-914 [facility] Magnesium [Mass/Vol] 1.9 mg/dL 1.6-2.6 [facility] Laboratory - Hematology and Cell countsOrdered By: Sangeetha Peña on 08-12-2022 Nucleated RBC/100 WBC (Bld) [Ratio] 0.1 % 0-0.5 [facility] Leukocytes [#/volume] in Blo od by Automated countOrdered By: Sangeetha Peña on 08-12-2022 WBC (Bld) [#/Vol] 8.3 10*3/uL 4.5-11.0 [facility] Lymphocytes Auto (Bld) [#/Vo l]Ordered By: Sangeetha Peña on 08-12-2022 Lymphocytes (Bld) [#/Vol] 2.3 10*3/uL 1.00-4.8 [facility] Lymphocytes/100 WBC Auto (Bl d)Ordered By: Sangeetha Peña on 08-12-2022 Lymphocytes/100 WBC (Bld) 27.4 % . [facility] MCH Auto (RBC) [Entitic mass ]Ordered By: Sangeetha Peña on 08-12-2022 MCH (RBC) [Entitic mass] 32.0 pg 24.7-34.3 [facility] MCHC Auto (RBC) [Mass/Vol]Or dered By: Sangeetha Peña on 08-12-2022 MCHC (RBC) [Mass/Vol] 32.8 g/dL 32.0-35.0 [facility] MCV Auto (RBC) [Entitic vol] Ordered By: Sangeetha Peña on 08-12-2022 MCV (RBC) [Entitic vol] 97.7 fL 80-100 [facility] Monocytes Auto (Bld) [#/Vol] Ordered By: Sangeetha Peña on 08-12-2022 Monocytes (Bld) [#/Vol] 0.7 10*3/uL 0.0-0.8 [facility] Monocytes/100 WBC Auto (Bld) Ordered By: Sangeetha Peña on 08-12-2022 Monocytes/100 WBC (Bld) 8.7 % . [facility] Neutrophils Auto (Bld) [#/Vo l]Ordered By: Sangeetha Peña on 08-12-2022 Neutrophils (Bld) [#/Vol] 4.8 10*3/uL 1.8-7.7 [facility] Neutrophils/100 WBC Auto (Bl d)Ordered By: Sangeetha Peña on 08-12-2022 Neutrophils/100 WBC (Bld) 58.0 % . [facility] No Panel InformationOrdered By: Sangeetha Peña on 08-12-2022 Estimated GFR () > 60 mL/Min [facility] Comment on above: GFR estimated refere nce range: According to KDOQI guidelines, <60 ml/min/1.73m2 is sufficient to diagnose a patient with chronic kidney disease. Pharmacy Creatinine Clearance (Chem 140.31 [facility] Platelet mean volume Auto (B ld) [Entitic vol]Ordered By: Sangeetha Peña on 08-12-2022 Platelet mean volume (Bld) [Entitic vol] 10.2 fL 6.3-10.7 [facility] Platelets Auto (Bld) [#/Vol] Ordered By: Sangeetha Peña on 08-12-2022 Platelets (Bld) [#/Vol] 263 10*3/uL 150-450 [facility] Protein [Mass/volume] in Ser um or PlasmaOrdered By: Sangeetha Peña on 08-12-2022 Protein [Mass/Vol] 5.6 g/dL 6.1-7.9 [facility] RBC Auto (Bld) [#/Vol]Ordere d By: Sangeetha Peña on 08-12-2022 RBC (Bld) [#/Vol] 3.54 10*6/uL 3.60-5.00 [facility] Serum or plasma alanine alberto otransferase measurement without P-5'-P (enzymatic activiOrdered By: Sangeetha Peña on 08-12-2022 ALT No additional P-5'-P [Catalytic activity/Vol] 22 U/L 10-60 [facility] Serum or plasma albumin/glob ulin mass ratioOrdered By: Sangeetha Peña on 08-12-2022 Albumin/Globulin [Mass ratio] 1.3 {ratio} [facility] Serum or plasma alkaline marquez sphatase measurement (enzymatic activity/volume)Ordered By: Sangeetha Peña on 08-12-2022 ALP [Catalytic activity/Vol] 54 U/L 32-92 [facility] Serum or plasma anion gap de terminationOrdered By: Sangeetha Peña on 08-12-2022 Anion gap [Moles/Vol] 10.6 mmol/L 6.0-15.0 [facility] Serum or plasma aspartate am inotransferase measurement (enzymatic activity/volume)Ordered By: Sangeetha Peña on 08-12-2022 AST [Catalytic activity/Vol] 20 U/L 10-42 [facility] Serum or plasma calcium audie urement (mass/volume)Ordered By: Sangeetha Peña on 08-12-2022 Calcium [Mass/Vol] 8.8 mg/dL 8.2-10.2 [facility] Serum or plasma chloride nimisha surement (moles/volume)Ordered By: Sangeetha Peña on 08-12-2022 Chloride [Moles/Vol] 105 mmol/L 95-114 [facility] Serum or plasma glucose audie urement (mass/volume)Ordered By: Sangeetha Peña on 08-12-2022 Glucose [Mass/Vol] 85 mg/dL 70-100 [facility] Comment on above: ADA recommended refe rence rangeRandom Glucose Reference Range is dependent on time and content of last meal. Glucose of more than 200 mg/dL in a nonstressed, ambulatory subject supports the diagnosis of Diabetes Mellitus. Serum or plasma potassium me asurement (moles/volume)Ordered By: Sangeetha Peña on 08-12-2022 Potassium [Moles/Vol] 4.2 mmol/L 3.5-5.1 [facility] Serum or plasma sodium measu rement (moles/volume)Ordered By: Sangeetha Peña on 08-12-2022 Sodium [Moles/Vol] 140 mmol/L 136-146 [facility] Serum or plasma total biliru bin measurement (mass/volume)Ordered By: Sangeetha Peña on 08-12-2022 Bilirubin [Mass/Vol] 0.5 mg/dL 0.3-1.2 [facility] Serum or plasma total carbon dioxide measurement (moles/volume)Ordered By: Sangeetha Peña on 08-12-2022 CO2 [Moles/Vol] 28.6 mmol/L 22.0-30.[address] [facility] Serum or plasma urea nitroge n measurement (mass/volume)Ordered By: Sangeetha Peña on 08-12-2022 Urea nitrogen [Mass/Vol] 7 mg/dL 9- [facility] TSH DL <= 0.005 mIU/L QnOrde red By: Lizzeth Malave on 08-12-2022 TSH Qn 1.79 m[IU]/L 0.45-5.33 [facility] Troponin I.cardiac [Mass/vol ume] in Serum or Plasma by High sensitivity methodOrdered By: Lizzeth Malave on 08-12-2022 Troponin I.cardiac High sensitivity method [Mass/Vol] < 3 pg/mL 0-15 [facility] CBC AUTO DIFFon 08-11-2022 BASO # 0.1 103/ul Normal 0.0-0.1 [facility] Comment on above: Performed By: #### C JENNIE PATRICK LIPA #### [facility] [address] [address] [address] Manuel Sandhu Basophils/100 WBC (Bld) 0.5 % Normal 0.2-2.0 [facility] Comment on above: Performed By: #### C JENNIE PATRICK LIPA #### [facility] [address] [place] [address] Dr. Manuel Sandhu EO # 0.4 103/ul Normal 0.0-0.7 [facility] Comment on above: Performed By: #### C JENNIE PATRICK LIPA #### [facility] [address] [place] [address] Dr. Manuel Sandhu Eosinophils/100 WBC (Bld) 2.4 % Normal 0.9-7.0 [facility] Comment on above: Performed By: #### C JENNIE PATRICK LIPA #### [facility] [address] [place] [address] Dr. Manuel Sandhu Erythrocyte distribution width (RBC) [Ratio] 14.1 % Normal 11.0-15.0 [facility] Comment on above: Performed By: #### C JENNIE PATRICK LIPA #### [facility] [address] [place] [address] Dr. Manuel Sandhu Hematocrit (Bld) [Volume fraction] 39.4 % Normal 36.0-48.0 [facility] Comment on above: Performed By: #### C JENNIE PATRICK LIPA #### [facility] [address] [place] [address] Dr. Manuel Sandhu Hemoglobin (Bld) [Mass/Vol] 13.3 g/dL Normal 12.0-16.0 [facility] Comment on above: Performed By: #### C MP, JENNIE, LIPA #### [facility] [address] [address] [address] Manuel Sandhu IG # 0.07 10e3/ul Critically high 0.00-0.03 [facility] Comment on above: Performed By: #### C MP, JENNIE, LIPA #### [facility] [address] [place] [address] Dr. Manuel Sandhu IG % 0.5 % Normal 0.0-0.5 [facility] Comment on above: Performed By: #### C MP, JENNIE, LIPA #### [facility] [address] [place] [address] Dr. Manuel Sandhu LYMPH # 3.6 103/ul Normal 1.2-3.8 [facility] Comment on above: Performed By: #### C MP, JENNIE, LIPA #### [facility] [address] [place] [address] Dr. Manuel Sandhu Lymphocytes/100 WBC (Bld) 23.5 % Normal 20.5-60.0 [facility] Comment on above: Performed By: #### C MP, JENNIE, LIPA #### [facility] [address] [place] [address] Dr. Manuel Sandhu MANUAL DIFF REQ NO Normal [facility] Comment on above: Performed By: #### C MP, JENNIE, LIPA #### [facility] [address] [place] [address] Dr. Manuel Sandhu MCH (RBC) [Entitic mass] 32.1 pg Normal 26.7-34.0 [facility] Comment on above: Performed By: #### C MP, JENNIE, LIPA #### [facility] [address] [place] [address] Dr. Manuel Sandhu MCHC (RBC) [Mass/Vol] 33.8 g/dL Normal 29.9-35.2 [facility] Comment on above: Performed By: #### C MP, JENNIE, LIPA #### [facility] [address] [place] [address] Dr. Manuel Sandhu MCV (RBC) [Entitic vol] 95.2 fL Normal 81.0-99.0 [facility] Comment on above: Performed By: #### C JENNIE PATRICK LIPA #### [facility] [address] [place] [address] Dr. Manuel Sandhu MONO # 0.9 103/ul Critically high 0.3-0.8 [facility] Comment on above: Performed By: #### C JENNIE PATRICK LIPA #### [facility] [address] [place] [address] Dr. Manuel Sandhu Monocytes/100 WBC (Bld) 5.8 % Normal 1.7-12.0 [facility] Comment on above: Performed By: #### C JENNIE PATRICK LIPA #### [facility] [address] [place] [address] Dr. Manuel Sandhu NEUT # 10.3 103/ul Critically high 1.4-6.5 [facility] Comment on above: Performed By: #### C JENNIE PATRICK LIPA #### [facility] [address] [place] [address] Dr. Manuel Sandhu Neutrophils/100 WBC (Bld) 67.3 % Normal 43.0-75.0 [facility] Comment on above: Performed By: #### C JENNIE PATRICK LIPA #### [facility] [address] [place] [address] Dr. Manuel Sandhu Platelet mean volume (Bld) [Entitic vol] 11.4 fL Normal 9.5-13.5 [facility] Comment on above: Performed By: #### C JENNIE PATRICK, LIPA #### [facility] [address] [place] [address] Dr. Manuel Sandhu PLT 364 103/ul Normal 150-450 [facility] Comment on above: Performed By: #### C JENNIE PATRICK, LIPA #### [facility] [address] [place] [address] Dr. Manuel Sandhu RBC 4.14 106/ul Critically low 4.20-5.40 [facility] Comment on above: Performed By: #### C JENNIE PATRICK LIPA #### [facility] [address] [address] [address] Manuel Sandhu WBC 15.3 103/ul Critically high 4.0-11.0 [facility] Comment on above: Performed By: #### C JENNIE PATRICK LIPA #### [facility] [address] [address] [address] STROKE HEAD WOon 08-11-[address] STROKE HEAD WO INDICATION: 31 years old; Female. Visual disturbance. TECHNIQUE: CT Head (ax/cor/sag reformats). Ionizing radiation dose reduced via iterative reconstruction/FBP blend and body size kV/mA adjustment. Comparison: Head CT dated 07/12/2021. FINDINGS: POSTOPERATIVE CHANGES: None. BRAIN PARENCHYMA: No hemorrhage, mass or acute infarct. Normal garcia/white differentiation. VENTRICLES/EXTRA-AXIAL SPACES: Multiple for patient's age. SINUSES/MASTOIDS: Visualized [...] YOLI MCKEON Date: 2022-08-11 15:21 Normal [facility] ER URINE PROFILEon 2 Bilirubin Ql (U) Negative Normal NEGATIVE [facility] Comment on above: Performed By: #### U MICRO, ERUR #### [facility] [address] [address] [address] Manuel Sandhu Clarity (U) CLEAR Normal CLEAR [facility] Comment on above: Performed By: #### U MICRO, ERUR #### [facility] [address] [address] [address] Manuel Sandhu Color (U) LT. YELLOW Normal YELLOW [facility] Comment on above: Performed By: #### U MICRO, ERUR #### [facility] [address] [address] [address] Manuel CUNHA A micrscopic examina tion will be performed if indicated. Normal [facility] Comment on above: Performed By: #### U MICRO, ERUR #### [facility] [address] [address] [address] Manuel Sandhu Glucose Ql (U) Negative Normal NEGATIVE [facility] Comment on above: Performed By: #### U MICRO, ERUR #### [facility] [address] [address] [address] Manuel Sandhu Hemoglobin Ql (U) Negative Normal NEGATIVE [facility] Comment on above: Performed By: #### U MICRO, ERUR #### [facility] [address] [address] [address] Manuel Sandhu Ketones Ql (U) Negative Normal NEGATIVE [facility] Comment on above: Performed By: #### U MICRO, ERUR #### [facility] [address] [address] [address] Manuel Sandhu LEUKOCYTES Negative Normal NEGATIVE [facility] Comment on above: Performed By: #### U MICRO, ERUR #### [facility] [address] [address] [address] Manuel Sandhu Nitrite Ql (U) Negative Normal NEGATIVE [facility] Comment on above: Performed By: #### U MICRO, ERUR #### [facility] [address] [address] [address] Manuel Sandhu pH (U) 7.0 [pH] Normal 5-9 [facility] Comment on above: Performed By: #### U MICRO, ERUR #### [facility] [address] [address] [address] Manuel Sandhu SPEC GRAVITY <=1.005 Abnormal 1.005-<=1. 025 [facility] Comment on above: Performed By: #### U MICRO, ERUR #### [facility] [address] [address] [address] Manuel Sandhu UA PROTEIN Negative Normal NEGATIVE/ TRACE [facility] Comment on above: Performed By: #### U MICRO, ERUR #### [facility] [address] [place] [address] Dr. Manuel Sandhu UR MICRO IND NOT INDICATED Normal [facility] Comment on above: Performed By: #### U MICRO, ERUR #### [facility] [address] [place] [address] Dr. Manuel Sandhu Urobilinogen Qn (U) 0.2 {Lucila'U}/dL Normal 0.2 - 1. 0 [facility] Comment on above: Performed By: #### U MICRO, ERUR #### [facility] [address] [place] [address] Dr. Manuel Sandhu LACTATE/LACTIC ACIDon 2021 Lactate [Moles/Vol] 1.5 mmol/L Normal 0.4-1.9 [facility] Comment on above: Performed By: #### I NFLUAB #### [facility] [address] [place] [address] Dr. Manuel Sandhu LIPASEon 08-11-2022 Lipase [Catalytic activity/Vol] 84.0 U/L Normal 73.0-393.0 [facility] Comment on above: Performed By: #### C JENNIE PATRICK, LIPA #### [facility] [address] [place] [address] Dr. Manuel Sandhu URon 08-11-2022 , QUAL Negative Normal NEGATIVE [facility] Comment on above: Performed By: #### U MICRO, ERUR #### [facility] [address] [place] [address] Dr. Manuel Sandhu PROF 14(COMP METB)on 022 Albumin [Mass/Vol] 4.3 g/dL Normal 3.4-5.0 [facility] Comment on above: Performed By: #### C CELINA JENNIE, LIPA #### [facility] [address] [place] [address] Dr. Manuel Sandhu Albumin/Globulin [Mass ratio] 1.1 {ratio} Normal [facility] Comment on above: Performed By: #### C MP, JENNIE, LIPA #### [facility] [address] [address] [address] Manuel Sandhu ALP [Catalytic activity/Vol] 87 U/L Normal 46-116 [facility] Comment on above: Performed By: #### C MP, JENNIE, LIPA #### [facility] [address] [address] [address] Manuel Sandhu ALT [Catalytic activity/Vol] 32 U/L Normal 14-59 [facility] Comment on above: Performed By: #### C MP, JENNIE, LIPA #### [facility] [address] [address] [address] Manuel Sandhu Anion gap [Moles/Vol] 12.7 mmol/L Normal [facility] Comment on above: Performed By: #### C MP, JENNIE, LIPA #### [facility] [address] [place] [address] Dr. Manuel Sandhu AST [Catalytic activity/Vol] 24 U/L Normal 15-37 [facility] Comment on above: Performed By: #### C MP, JENNIE, LIPA #### [facility] [address] [address] [address] Manuel Sandhu Bilirubin [Mass/Vol] 0.3 mg/dL Normal 0.2-1.0 [facility] Comment on above: Performed By: #### C MP, JENNIE, LIPA #### [facility] [address] [address] [address] Manuel aSndhu Calcium [Mass/Vol] 9.4 mg/dL Normal 8.5-10.1 [facility] Comment on above: Performed By: #### C MP, JENNIE, LIPA #### [facility] [address] [address] [address] Manuel Sandhu Chloride [Moles/Vol] 100 mmol/L Normal 98-107 [facility] Comment on above: Performed By: #### C MP, JENNIE, LIPA #### [facility] [address] [address] [address] Manuel Sandhu CO2 [Moles/Vol] 27.7 mmol/L Normal 21.0-32.0 [facility] Comment on above: Performed By: #### C MP, JENNIE, LIPA #### [facility] [address] [address] [address] Manuel Sandhu Creatinine [Mass/Vol] 0.71 mg/dL Normal 0.55-1.02 [facility] Comment on above: Performed By: #### C MP, JENNIE, LIPA #### [facility] [address] [address] [address] Manuel Sandhu EGFR-AF SAO TOMEAN >60 Normal >=60 [facility] Comment on above: Performed By: #### C MP JENNIE, LIPA #### [facility] [address] [address] [address] Manuel Sandhu EGFR-NON AF SAO TOMEAN >60 Normal >=60 [facility] Comment on above: Performed By: #### C MP JENNIE, LIPA #### [facility] [address] [address] [address] Manuel Sandhu Globulin (S) [Mass/Vol] 3.9 g/dL Normal [facility] Comment on above: Performed By: #### C CELINA JENNIE, LIPA #### [facility] [address] [address] [address] Manuel Sandhu Glucose [Mass/Vol] 109 mg/dL Critically high 74-106 [facility] Comment on above: Performed By: #### C CELINA JENNIE, LIPA #### [facility] [address] [address] [address] Manuel Sandhu Potassium [Moles/Vol] 3.4 mmol/L Critically low 3.5-5.1 [facility] Comment on above: Performed By: #### C MP JENNIE, LIPA #### [facility] [address] [address] [address] Manuel Sandhu Protein [Mass/Vol] 8.2 g/dL Normal 6.4-8.2 [facility] Comment on above: Performed By: #### C MP, JENNIE, LIPA #### [facility] [address] [address] [address] Manuel Sandhu Sodium [Moles/Vol] 137 mmol/L Normal 136-145 [facility] Comment on above: Performed By: #### C JENNIE PATRICK LIPA #### [facility] [address] [place] [address] Dr. Manuel Sandhu Urea nitrogen [Mass/Vol] 10.0 mg/dL Normal 7.0-18.0 [facility] Comment on above: Performed By: #### C JENNIE PATRICK LIPA #### [facility] [address] [place] [address] Dr. Manuel Sandhu Urea nitrogen/Creatinine [Mass ratio] 14.1 mg/mg Normal [facility] Comment on above: Performed By: #### C JENNIE PATRICK LIPA #### [facility] [address] [place] [address] Dr. Manuel Sandhu PROTIMEon 08-11-2022 INR Coag (PPP) [Relative time] 0.96 {INR} Normal [facility] Comment on above: Performed By: #### I NFLUAB #### [facility] [address] [place] [address] Dr. Manuel Sandhu INR GUIDELINES SEE BELOW Normal [facility] Comment on above: Result Comment: CHUY RED INR: 2.0 - 3.0 CONDITIONS NOT LISTED BELOW 2.5 - 3.5 FOR PROSTHETIC HEART VALVE REPLACEMENT 2.5 - 3.5 RECURRENT THROMBOSIS Performed By: #### I NFLUAB #### [facility] [address] [place] [address] Dr. Manuel Sandhu PT Coag (PPP) [Time] 10.4 s Normal 9.0-11.6 [facility] Comment on above: Performed By: #### I NFLUAB #### [facility] [address] [place] [address] Dr. Manuel Sandhu PTTon 08-11-2022 aPTT Coag (Bld) [Time] 25.3 s Normal 22.3-36.2 [facility] Comment on above: Performed By: #### I NFLUAB #### [facility] [address] [place], [place] [address] Dr. Manuel Sandhu TROPONIN, HIGH SENSITIVITYon 08-11-2022 HSTROP 4.5 pg/mL Normal 4.0-51.3 [facility] Comment on above: Result Comment: CUT- OFF POINTS HAVE BEEN ESTABLISHED BASED ON THE FOURTH UNIVERSAL DEFINITIONS OF MYOCARDIAL INFARCTION. THE UPPER REFERENCE LIMIT (URL) OF TROPONIN, DEFINED THE 99TH PERCENTILE OF cTnI DISTRIBUTION IN A REFERENCE POPULATION, HAS BEEN CONFIRMED THE DECISION THRESHOLD FOR ME DIAGNOSIS. Performed By: #### C JENNIE PATRICK LIPA #### [facility] [address] [place] [address] Dr. Manuel Sandhu TSHon 08-11-2022 TSH 1.778 uIU/mL Normal 0.358-3.74 0 [facility] Comment on above: Performed By: #### C JENNIE PATRICK LIPA #### [facility] [address] [place] [address] Dr. Manuel Sandhu CHEMISTRYOrdered By: SYSTEM SYSTEM on 08-08-2022 Anion gap [Moles/Vol] 11 mmol/L Normal 6 - 16 mEq/L [facility] Rem[facility] Calcium [Mass/Vol] 9.0 mg/dL Normal 8.9 - 11. 1 mg/dL [facility] Remisol Chloride [Moles/Vol] 105 mmol/L Normal 101 - 1 11 mmol/L [facility] Remisol CO2 [Moles/Vol] 25 mmol/L Normal 21 - 31 mmol/L [facility] Remisol Creatinine [Mass/Vol] 0.6 mg/dL Normal 0.5 - 1.3 mg/dL [facility] Remisol GFR/1.73 sq M.predicted among blacks MDRD (S/P/Bld) [Vol rate/Area] mL/min/1.73 m2 Normal >=59mL/min /1.73 m2 [facility] Chem S GFR/1.73 sq M.predicted among non-blacks MDRD (S/P/Bld) [Vol rate/Area] mL/min/1.73 m2 Normal >=59mL/min /1.73 m2 [facility] Chem S Glucose [Mass/Vol] 84 mg/dL Normal 55 - 199 mg/dL [facility] Potassium [Moles/Vol] 4.2 mmol/L Normal 3.5 - 5.3 mmol/L [facility] [place]isol Sodium [Moles/Vol] 137 mmol/L Normal 135 - 145 mmol/L [facility] [place] Remisol Urea nitrogen [Mass/Vol] 13 mg/dL Normal 5 - 21 mg/dL [facility] [place] Remisol Urea nitrogen/Creatinine [Mass ratio] 22 mg/mg High 10 - 20 [facility] [place] Remisol CHEMISTRYOrdered By: Lab ROP User on 08-08-2022 Glucose [Mass/Vol] 98 mg/dL Normal 55 - 99 mg/dL [facility] [place] POC Subsection POC Device SN [id number] Invalid Interpretation Code [facility] [place]OC Subsection POC User ID [id number] Invalid Interpretation Code [facility] [place] POC Sub[place] POC Username MOLLY RALPH Invalid Interpretation Code [facility] [place] Subsection HEMATOLOGYOrdered By: SYSTEM SYSTEM on 08-08-2022 Basophils/100 [...] 8.3 E9/L High 2.0 - 7.5 E9/L [facility] HemeAutoSS HEMATOLOGYOrdered By: Shasta Eller on 08-08-2022 [...] HemeAutoSS Platelets (Bld) [#/Vol] 288.0 E9/L Normal 150.0 - 500.0 E9/L [facility] HemeAutoSS RBC (Bld) [#/Vol] 3.7 E12/L Low 4.3 - 5.9 E12/L [facility] HemeAutoSS WBC corrected for nucl RBC Auto (Bld) [#/Vol] 11.1 E9/L High 4.0 - 11.0 E9/L [facility] HemeAutoSS MICRO OTHER TESTSOrdered By: Kimberli Briseno on 08-08-2022 Influenzae A Ag Negative (08/08/22 9:59 AM) Normal Negative [facility] Man Sero Influenzae B Ag Negative (08/08/22 9:59 AM) Normal Negative [facility] Man Sero Rapid COV Int NEG Ctl Pass (08/08/22 9:59 AM) Normal [facility] Man Sero Rapid COV Int POS Ctl Pass (08/08/22 9:59 AM) Normal [facility] Man Sero SARS-CoV+SARS-CoV-2 (COVID-19) Ag IA.rapid Ql (Resp) Not Detected (08/08/22 9:59 AM) Normal Not Detected [facility] Sero SEROLOGYOrdered By: Kimberli heart on 08-08-2022 Beta hCG Ql Negative (08/08/22 9:51 AM) Normal [facility] Sero URINALYSISOrdered By: Kimberli Briseno on 08-08-2022 Bilirubin [...] AM) Normal Negative [facility] UA Auto SS [place].plasma/[place] .RBC (Bld) [Mass ratio] 0-3 /HPF Normal 0-3/HPF [facility] UA Auto SS Nitrite Ql (U) Negative (08/08/22 10:01 [...] Desc Clean Catch (08/08/22 10:01 AM) Normal [facility] UA Auto SS Urobilinogen Qn (U) [id number] {Lucila'U}/dL Normal 0.0 - 1.0 EU/dL [facility] UA Auto SS WBC Auto Ql (U) Negative (08/08/22 10:01 AM) Normal Negative [facility] UA Auto SS WBC LM.HPF (Urine sed) [#/Area] 0-5 /HPF Normal 0-5/HPF [facility] UA Auto SS CBC AUTO DIFFon 07-19-2022 BASO # 0.1 103/ul Normal 0.0-0.1 [facility] Comment on above: Performed By: #### I NFLUAB #### [facility] [address] [place] [address] Dr. Manuel Sandhu Basophils/100 WBC (Bld) 0.4 % Normal 0.2-2.0 [facility] Comment on above: Performed By: #### I NFLUAB #### [facility] [address] [place] [address] Dr. Manuel Sandhu EO # 0.3 103/ul Normal 0.0-0.7 [facility] Comment on above: Performed By: #### I NFLUAB #### [facility] [address] [place] [address] Dr. Manuel Sandhu Eosinophils/100 WBC (Bld) 2.4 % Normal 0.9-7.0 [facility] Comment on above: Performed By: #### I NFLUAB #### [facility] [address] [place] [address] Dr. Manuel Sandhu Erythrocyte distribution width (RBC) [Ratio] 13.7 % Normal 11.0-15.0 [facility] Comment on above: Performed By: #### I NFLUAB #### [facility] [address] [place] [address] Dr. Manuel Sandhu Hematocrit (Bld) [Volume fraction] 36.5 % Normal 36.0-48.0 [facility] Comment on above: Performed By: #### I NFLUAB #### [facility] [address] [place] [address] Dr. Manuel Sandhu Hemoglobin (Bld) [Mass/Vol] 12.3 g/dL Normal 12.0-16.0 [facility] Comment on above: Performed By: #### I NFLUAB #### [facility] [address] [place] [address] Dr. Manuel Sandhu IG # 0.04 10e3/ul Critically high 0.00-0.03 [facility] Comment on above: Performed By: #### I NFLUAB #### [facility] [address] [place] [address] Dr. Manuel Sandhu IG % 0.3 % Normal 0.0-0.5 [facility] Comment on above: Performed By: #### I NFLUAB #### [facility] [address] [place] [address] Dr. Manuel Sandhu LYMPH # 2.6 103/ul Normal 1.2-3.8 [facility] Comment on above: Performed By: #### I NFLUAB #### [facility] [address] [place] [address] Dr. Manuel Sandhu Lymphocytes/100 WBC (Bld) 22.3 % Normal 20.5-60.0 [facility] Comment on above: Performed By: #### I NFLUAB #### [facility] [address] [place] [address] Dr. Manuel Sandhu MANUAL DIFF REQ NO Normal [facility] Comment on above: Performed By: #### I NFLUAB #### [facility] [address] [place] [address] Dr. Manuel Sandhu MCH (RBC) [Entitic mass] 32.5 pg Normal 26.7-34.0 [facility] Comment on above: Performed By: #### I NFLUAB #### [facility] [address] [place] [address] Dr. Manuel Sandhu MCHC (RBC) [Mass/Vol] 33.7 g/dL Normal 29.9-35.2 [facility] Comment on above: Performed By: #### I NFLUAB #### [facility] [address] [place] [address] Dr. Manuel Sandhu MCV (RBC) [Entitic vol] 96.6 fL Normal 81.0-99.0 [facility] Comment on above: Performed By: #### I NFLUAB #### [facility] [address] [place] [address] Dr. Manuel Sandhu MONO # 0.6 103/ul Normal 0.3-0.8 [facility] Comment on above: Performed By: #### I NFLUAB #### [facility] [address] [place] [address] Dr. Manuel Sandhu Monocytes/100 WBC (Bld) 5.2 % Normal 1.7-12.0 [facility] Comment on above: Performed By: #### I NFLUAB #### [facility] [address] [place] [address] Dr. Manuel Sandhu NEUT # 8.2 103/ul Critically high 1.4-6.5 [facility] Comment on above: Performed By: #### I NFLUAB #### [facility] [address] [place] [address] Dr. Manuel Sandhu Neutrophils/100 WBC (Bld) 69.4 % Normal 43.0-75.0 [facility] Comment on above: Performed By: #### I NFLUAB #### [facility] [address] [place] [address] Dr. Manuel Sandhu Platelet mean volume (Bld) [Entitic vol] 11.2 fL Normal 9.5-13.5 [facility] Comment on above: Performed By: #### I NFLUAB #### [facility] [address] [place] [address] Dr. Manuel Sandhu PLT 308 103/ul Normal 150-450 [facility] Comment on above: Performed By: #### I NFLUAB #### [facility] [address] [place] [address] Dr. Manuel Sandhu RBC 3.78 106/ul Critically low 4.20-5.40 [facility] Comment on above: Performed By: #### I NFLUAB #### [facility] [address] [place] [address] Dr. Manuel Sandhu WBC 11.8 103/ul Critically high 4.0-11.0 [facility] Comment on above: Performed By: #### I NFLUAB #### [facility] [address] [place] [address] Dr. Manuel Sandhu D-DIMERon 07-19-2022 D-DIMER 0.29 mg/L FEU Normal <=0.[address] [facility] Comment on above: Performed By: #### U MICRO, ERUR #### [facility] [address] [place] [address] Dr. Manuel Sandhu D-DIMER COMMENTS SEE BELOW Normal [facility] Comment on above: Result Comment: Incr eases [...] Performed By: #### U MICRO, ERUR #### [facility] [address] [place] [address] Dr. Manuel Sandhu LIPASEon 07-19-2022 Lipase [Catalytic activity/Vol] 119.0 U/L Normal 73.0-393.0 [facility] Comment on above: Performed By: #### C MP JENNIE, LIPA #### [facility] [address] [place] [address] Dr. Manuel Sandhu PROF 14(COMP METB)on 022 Albumin [Mass/Vol] 3.5 g/dL Normal 3.4-5.0 [facility] Comment on above: Performed By: #### C MP JENNIE, LIPA #### [facility] [address] [place] [address] Dr. Manuel Sandhu Albumin/Globulin [Mass ratio] 1.0 {ratio} Normal [facility] Comment on above: Performed By: #### C MP JENNIE, LIPA #### [facility] [address] [place] [address] Dr. Manuel Sandhu ALP [Catalytic activity/Vol] 65 U/L Normal 46-116 [facility] Comment on above: Performed By: #### C MP, JENNIE, LIPA #### [facility] [address] [place] [address] Dr. Manuel Sandhu ALT [Catalytic activity/Vol] 33 U/L Normal 14-59 [facility] Comment on above: Performed By: #### C MP, JENNIE, LIPA #### [facility] [address] [address] [address] Manuel Sandhu Anion gap [Moles/Vol] 10.8 mmol/L Normal [facility] Comment on above: Performed By: #### C MP, JENNIE, LIPA #### [facility] [address] [address] [address] Manuel Sandhu AST [Catalytic activity/Vol] 20 U/L Normal 15-37 [facility] Comment on above: Performed By: #### C MP, JENNIE, LIPA #### [facility] [address] [address] [address] Manuel Sandhu Bilirubin [Mass/Vol] 0.1 mg/dL Critically low 0.2-1.0 [facility] Comment on above: Performed By: #### C MP, JENNIE, LIPA #### [facility] [address] [address] [address] Manuel Sandhu Calcium [Mass/Vol] 8.7 mg/dL Normal 8.5-10.1 [facility] Comment on above: Performed By: #### C MP, JENNIE, LIPA #### [facility] [address] [address] [address] Manuel Sandhu Chloride [Moles/Vol] 105 mmol/L Normal 98-107 [facility] Comment on above: Performed By: #### C MP, JENNIE, LIPA #### [facility] [address] [address] [address] Manuel Sandhu CO2 [Moles/Vol] 24.4 mmol/L Normal 21.0-32.0 [facility] Comment on above: Performed By: #### C MP, JENNIE, LIPA #### [facility] [address] [address] [address] Manuel Sandhu Creatinine [Mass/Vol] 0.91 mg/dL Normal 0.55-1.02 [facility] Comment on above: Performed By: #### C MP, JENNIE, LIPA #### [facility] [address] [address] [address] Manuel Sandhu EGFR-AF SAO TOMEAN >60 Normal >=60 [facility] Comment on above: Performed By: #### C MP, JENNIE, LIPA #### [facility] [address] [address] [address] Manuel Sandhu EGFR-NON AF SAO TOMEAN >60 Normal >=60 [facility] Comment on above: Performed By: #### C MP, JENNIE, LIPA #### [facility] [address] [address] [address] Manuel Sandhu Globulin (S) [Mass/Vol] 3.4 g/dL Normal [facility] Comment on above: Performed By: #### C MP, JENNIE, LIPA #### [facility] [address] [place] [address] Dr. Manuel Sandhu Glucose [Mass/Vol] 127 mg/dL Critically high 74-106 [facility] Comment on above: Performed By: #### C MP, JENNIE, LIPA #### [facility] [address] [place] [address] Dr. Manuel Sandhu Potassium [Moles/Vol] 3.2 mmol/L Critically low 3.5-5.1 [facility] Comment on above: Performed By: #### C MP, JENNIE, LIPA #### [facility] [address] [place] [address] Dr. Manuel Sandhu Protein [Mass/Vol] 6.9 g/dL Normal 6.4-8.2 [facility] Comment on above: Performed By: #### C MP, JENNIE, LIPA #### [facility] [address] [place] [address] Dr. Manuel Sandhu Sodium [Moles/Vol] 137 mmol/L Normal 136-145 [facility] Comment on above: Performed By: #### C MP, JENNIE, LIPA #### [facility] [address] [place] [address] Dr. Manuel Sandhu Urea nitrogen [Mass/Vol] 13.0 mg/dL Normal 7.0-18.0 [facility] Comment on above: Performed By: #### C MP, JENNIE, LIPA #### [facility] [address] [place] [address] Dr. Manuel Sandhu Urea nitrogen/Creatinine [Mass ratio] 14.3 mg/mg Normal [facility] Comment on above: Performed By: #### C MP, JENNIE, LIPA #### [facility] [address] [place] [address] Dr. Manuel Sandhu PROTIMEon 07-19-2022 INR Coag (PPP) [Relative time] 0.97 {INR} Normal [facility] Comment on above: Performed By: #### P TT, PT #### [facility] [address] [place] [address] Dr. Manuel Sandhu INR GUIDELINES SEE BELOW Normal [facility] Comment on above: Result Comment: CHUY RED INR: 2.0 - 3.0 CONDITIONS NOT LISTED BELOW 2.5 - 3.5 FOR PROSTHETIC HEART VALVE REPLACEMENT 2.5 - 3.5 RECURRENT THROMBOSIS Performed By: #### P TT, PT #### [facility] [address] [place] [address] Dr. Manuel Sandhu PT Coag (PPP) [Time] 10.5 s Normal 9.0-11.6 [facility] Comment on above: Performed By: #### P TT, PT #### [facility] [address] [place] [address] Dr. Manuel Sandhu PTTon 07-19-2022 aPTT Coag (Bld) [Time] 26.1 s Normal 22.3-36.2 [facility] Comment on above: Performed By: #### P TT, PT #### [facility] [address] [place] [address] Dr. Manuel Sandhu TROPONIN, HIGH SENSITIVITYon 07-19-2022 HSTROP 5.4 pg/mL Normal 4.0-51.3 [facility] Comment on above: Result Comment: CUT- OFF POINTS HAVE BEEN ESTABLISHED BASED ON THE FOURTH UNIVERSAL DEFINITIONS OF MYOCARDIAL INFARCTION. THE UPPER REFERENCE LIMIT (URL) OF TROPONIN, DEFINED THE 99TH PERCENTILE OF cTnI DISTRIBUTION IN A REFERENCE POPULATION, HAS BEEN CONFIRMED THE DECISION THRESHOLD FOR ME DIAGNOSIS. Performed By: #### U MICRO, ERUR #### [facility] [address] [place] [address] Dr. Manuel Sandhu HSTROP 5.1 pg/mL Normal 4.0-51.3 [facility] Comment on above: Result Comment: CUT- OFF POINTS HAVE BEEN ESTABLISHED BASED ON THE FOURTH UNIVERSAL DEFINITIONS OF MYOCARDIAL INFARCTION. THE UPPER REFERENCE LIMIT (URL) OF TROPONIN, DEFINED THE 99TH PERCENTILE OF cTnI DISTRIBUTION IN A REFERENCE POPULATION, HAS BEEN CONFIRMED THE DECISION THRESHOLD FOR ME DIAGNOSIS. Performed By: #### C JENNIE PATRICK LIPA #### [facility] [address] [address] [address] Manuel Sandhu XR CHEST 1 Von [...] LUCIANA ALLEN Date: 2022-07-19 19:28 Normal [facility] Covid-19 PCR (CVDTB)on 05-16 SARS-CoV-2 (COVID-19) RNA JOSÉ MIGUEL+probe Ql (Unsp spec) Not detected Normal NOT DETECTED [facility] Comment on above: Result Comment: When diagnostic [...] for this test is supported by the [place] of Health and Human Service's declaration that [...] By: #### C JENNIE PATRICK LIPA #### [facility] [address] [address] [address] Manuel Sandhu XR CHEST 2 Von [...] CAROLYNE RALPH Date: 2022-06-12 10:12 Normal [facility] Covid-19 PCR (CVDTB)on 05-15 SARS-CoV-2 (COVID-19) RNA JOSÉ MIGUEL+probe Ql (Unsp spec) Not detected Normal NOT DETECTED [facility] Comment on above: Result Comment: When diagnostic [...] for this test is supported by the [employer] of Health and Human Service's declaration that [...] used). Performed By: #### I NFLUAB #### [facility] [address] [address] [address] Manuel Sandhu CHEMISTRYOrdered By: SYSTEM SYSTEM on 04-20-2022 Anion gap [Moles/Vol] 12 mmol/L Normal 6 - 16 mEq/L [facility] [place] Remisol Calcium [Mass/Vol] 9.5 mg/dL Normal 8.9 - 11. 1 mg/dL [facility] Remisol Chloride [Moles/Vol] 107 mmol/L Normal 101 - 1 11 mmol/L [facility] Remisol CO2 [Moles/Vol] 22 mmol/L Normal 21 - 31 mmol/L [facility] Remisol Creatinine [Mass/Vol] 0.6 mg/dL Normal 0.5 - 1.3 mg/dL [facility] Remisol GFR/1.73 sq M.predicted among blacks MDRD (S/P/Bld) [Vol rate/Area] mL/min/1.73 m2 Normal >=59mL/min /1.73 m2 [facility] S GFR/1.73 sq M.predicted among non-blacks MDRD (S/P/Bld) [Vol rate/Area] mL/min/1.73 m2 Normal >=59mL/min /1.73 m2 [facility] [place] Chem S Glucose [Mass/Vol] 98 mg/dL Normal 55 - 199 mg/dL [facility] Potassium [Moles/Vol] 3.6 mmol/L Normal 3.5 - 5.3 mmol/L [facility] Sodium [Moles/Vol] 137 mmol/L Normal 135 - 145 mmol/L [facility] Remisol Urea nitrogen [Mass/Vol] 15 mg/dL Normal 5 - 21 mg/dL [facility] Remisol Urea nitrogen/Creatinine [Mass ratio] 25 mg/mg [...] HemeAutoSS Platelets (Bld) [#/Vol] 312.0 E9/L Normal 150.0 - 500.0 E9/L [facility] HemeAutoSS RBC (Bld) [#/Vol] 4.1 E12/L Low 4.3 - 5.9 E12/L [facility] HemeAutoSS WBC corrected for nucl RBC Auto (Bld) [#/Vol] 13.1 E9/L High 4.0 - 11.0 E9/L [facility] HemeAutoSS Covid-19 PCR (CVDTB)on 03-15 SARS-CoV-2 (COVID-19) RNA JOSÉ MIGUEL+probe Ql (Unsp spec) Detected Critically abnormal NOT DETECTED [facility] Comment on above: Result Comment: This test is not yet approved or cleared by the [place] FDA. When there are no FDA-approved or cleared tests available, and other criteria are met, FDA can make tests available under an emergency access mechanism called an Emergency Use Authorization (EUA). The EUA for this test is supported by the [employer] of Health and Human Service's declaration that [...] By: #### C JENNIE PATRICK LIPA #### [facility] [address] [place] [address] Dr. Manuel Sandhu GROUP A STREP CULTUREon 03-15 S. pyogenes Ag Ql (Unsp spec) Culture Observations: NEGATIVE FOR GROUP A STREPTOCOCCUS. Normal [facility] Comment on above: Performed By: #### U MICRO, ERUR #### [facility] [address] [place] [address] Dr. Manuel Sandhu INFLUENZA A AND B AGon 04-07 INFLUENZA A AG Negative Normal NEGATIVE SEE COMMENT [facility] Comment on above: Performed By: #### I NFLUAB #### [facility] [address] [place] [address] Dr. Manuel Sandhu INFLUENZA B AG Negative Normal NEGATIVE SEE COMMENT [facility] Comment on above: Performed By: #### I NFLUAB #### [facility] [address] [place] [address] Dr. Manuel Sandhu INTERNAL CONTROLS Within Normal Limits Normal Wi thin Normal Limits [facility] Comment on above: Performed By: #### I NFLUAB #### [facility] [address] [place] [address] Dr. Manuel Sandhu STREPT SCREENon 04-07-2022 STREP SCREEN A Negative Normal NEGATIVE [facility] Comment on above: Performed By: #### U MICRO, ERUR #### [facility] [address] [address] [address] Manuel Sandhu CHEMISTRYOrdered By: SYSTEM SYSTEM [...] [facility] Remisol Folate [Mass/Vol] ng/mL Normal >=6.7ng/mL [facility] Re misol GFR/1.73 sq M.predicted among blacks MDRD (S/P/Bld) [Vol rate/Area] mL/min/1.73 m2 Normal >=59mL/min /1.73 m2 [facility] Chem S GFR/1.73 sq M.predicted among non-blacks MDRD (S/P/Bld) [Vol rate/Area] mL/min/1.73 m2 Normal >=59mL/min /1.73 m2 [facility] Chem S Glucose [Mass/Vol] 83 [...] HemeAutoSS Platelets (Bld) [#/Vol] 267.0 E9/L Normal 150.0 - 500.0 E9/L [facility] HemeAutoSS RBC (Bld) [...] PM) Normal Negative [facility] UA Auto SS [place].plasma/[place] .RBC (Bld) [Mass ratio] 0-3 /HPF Normal 0-3/HPF [facility] UA Auto SS Nitrite Ql (U) Negative (04/03/22 6:51 [...] [facility] UA Auto SS Urobilinogen Qn (U) [id number] {Lucila'U}/dL Normal 0.0 - 1.0 EU/dL [facility] [place] UA Auto SS WBC Auto Ql (U) Negative (04/03/22 6:51 PM) Normal Negative [facility] UA Auto SS WBC LM.HPF (Urine sed) [#/Area] 0-5 /HPF Normal 0-5/HPF [facility] UA Auto SS GROUP A STREP CULTUREon 01-13 S. pyogenes Ag Ql (Unsp spec) Culture Observations: NEGATIVE FOR GROUP A STREPTOCOCCUS. Normal [facility] Comment on above: Performed By: #### I NFLUAB #### [facility] [address] [place] [address] Dr. Manuel Sandhu STREPT SCREENon 02-08-2022 STREP SCREEN A Negative Normal NEGATIVE [facility] Comment on above: Performed By: #### I NFLUAB #### [facility] [address] [place] [address] Dr. Manuel Sandhu CBC AUTO DIFFon 01-30-2022 BASO # 0.1 103/ul Normal 0.0-0.1 [facility] Comment on above: Performed By: #### C BC #### [facility] [address] [place] [address] Dr. Manuel Sandhu Basophils/100 WBC (Bld) 0.4 % Normal 0.2-2.0 [facility] Comment on above: Performed By: #### C BC #### [facility] [address] [place] [address] Dr. Manuel Sandhu EO # 0.4 103/ul Normal 0.0-0.7 [facility] Comment on above: Performed By: #### C BC #### [facility] [address] [place] [address] Dr. Manuel Sandhu Eosinophils/100 WBC (Bld) 3.0 % Normal 0.9-7.0 [facility] Comment on above: Performed By: #### C BC #### [facility] [address] [place] [address] Dr. Manuel Sandhu Erythrocyte distribution width (RBC) [Ratio] 13.3 % Normal 11.0-15.0 [facility] Comment on above: Performed By: #### C BC #### [facility] [address] [place] [address] Dr. Manuel Sandhu Hematocrit (Bld) [Volume fraction] 36.8 % Normal 36.0-48.0 [facility] Comment on above: Performed By: #### C BC #### [facility] [address] [place] [address] Dr. Manuel Sandhu Hemoglobin (Bld) [Mass/Vol] 12.2 g/dL Normal 12.0-16.0 [facility] Comment on above: Performed By: #### C BC #### [facility] [address] [place] [address] Dr. Manuel Sandhu IG # 0.04 10e3/ul Critically high 0.00-0.03 [facility] Comment on above: Performed By: #### C BC #### [facility] [address] [place] [address] Dr. Manuel Sandhu IG % 0.3 % Normal 0.0-0.5 [facility] Comment on above: Performed By: #### C BC #### [facility] [address] [place] [address] Dr. Manuel Sandhu LYMPH # 2.8 103/ul Normal 1.2-3.8 [facility] Comment on above: Performed By: #### C BC #### [facility] [address] [place] [address] Dr. Manuel Sandhu Lymphocytes/100 WBC (Bld) 23.0 % Normal 20.5-60.0 [facility] Comment on above: Performed By: #### C BC #### [facility] [address] [place] [address] Dr. Manuel Sandhu MANUAL DIFF REQ NO Normal [facility] Comment on above: Performed By: #### C BC #### [facility] [address] [place] [address] Dr. Manuel Sandhu MCH (RBC) [Entitic mass] 32.1 pg Normal 26.7-34.0 [facility] Comment on above: Performed By: #### C BC #### [facility] [address] [address] [address] Manuel Sandhu MCHC (RBC) [Mass/Vol] 33.2 g/dL Normal 29.9-35.2 [facility] Comment on above: Performed By: #### C BC #### [facility] [address] [address] [address] Manuel Sandhu MCV (RBC) [Entitic vol] 96.8 fL Normal 81.0-99.0 [facility] Comment on above: Performed By: #### C BC #### [facility] [address] [address] [address] Manuel Sandhu MONO # 0.7 103/ul Normal 0.3-0.8 [facility] Comment on above: Performed By: #### C BC #### [facility] [address] [place] [address] Dr. Manuel Sandhu Monocytes/100 WBC (Bld) 5.6 % Normal 1.7-12.0 [facility] Comment on above: Performed By: #### C BC #### [facility] [address] [address] [address] Manuel Sandhu NEUT # 8.2 103/ul Critically high 1.4-6.5 [facility] Comment on above: Performed By: #### C BC #### [facility] [address] [place] [address] Dr. Manuel Sandhu Neutrophils/100 WBC (Bld) 67.7 % Normal 43.0-75.0 [facility] Comment on above: Performed By: #### C BC #### [facility] [address] [address] [address] Manuel Sandhu Platelet mean volume (Bld) [Entitic vol] 11.2 fL Normal 9.5-13.5 [facility] Comment on above: Performed By: #### C BC #### [facility] [address] [address] [address] Manuel Sandhu PLT 312 103/ul Normal 150-450 [facility] Comment on above: Performed By: #### C BC #### [facility] [address] [address] [address] Manuel Sandhu RBC 3.80 106/ul Critically low 4.20-5.40 [facility] Comment on above: Performed By: #### C BC #### [facility] [address] [id number] Manuel Sandhu WBC 12.1 103/ul Critically high 4.0-11.0 [facility] Comment on above: Performed By: #### C BC #### [facility] [address] [address] [address] Manuel Sandhu Covid-19 PCR (CVDTBH)on 01-12 SARS-CoV-2 (COVID-19) RNA JOSÉ MIGUEL+probe Ql (Unsp spec) Not detected Normal NOT DETECTED [facility] Comment on above: Result Comment: This test is not yet approved or cleared by the [place] FDA. When there are no FDA-approved or cleared tests available, and other criteria are met, FDA can make tests available under an emergency access mechanism called an Emergency Use Authorization (EUA). The EUA for this test is supported by the [place] of Health and Human Service's (HHS's) declaration [...] SARS-CoV-2. Performed By: #### C VDTBH #### [facility] [address] [place] [address] Dr. Manuel Sandhu DRUG SCREEN RAPID (URINE)on 01-30-2022 AMP Negative Normal NEGATIVE [facility] Comment on above: Performed By: #### U MICRO, ERUR #### [facility] [address] [address] [address] Manuel Sandhu BAR Negative Normal NEGATIVE [facility] Comment on above: Performed By: #### U MICRO, ERUR #### [facility] [address] [place] [address] Dr. Manuel aSndhu BUP Negative Normal NEGATIVE [facility] Comment on above: Performed By: #### U MICRO, ERUR #### [facility] [address] [address] [address] Manuel Sandhu BZO Negative Normal NEGATIVE [facility] Comment on above: Performed By: #### U MICRO, ERUR #### [facility] [address] [address] [address] Manuel Sandhu WISAM Negative Normal NEGATIVE [facility] Comment on above: Performed By: #### U MICRO, ERUR #### [facility] [address] [place] [address] Dr. Manuel Sandhu CUT-OFFS SEE BELOW Normal [facility] Comment on above: Result Comment: AMP (Amphetamine): [...] Performed By: #### U MICRO, ERUR #### [facility] [address] [place] [address] Dr. Manuel Sandhu DRUG CUT HEADER DRUG CLASS TEST SYST EM CUT-OFF CONCENTRATIONS ARE FOLLOWS: Normal [facility] Comment on above: Performed By: #### U MICRO, ERUR #### [facility] [address] [place] [address] Dr. Manuel Sandhu mAMP Negative Normal NEGATIVE [facility] Comment on above: Performed By: #### U MICRO, ERUR #### [facility] [address] [address] [address] Manuel Sandhu MTD Negative Normal NEGATIVE [facility] Comment on above: Performed By: #### U MICRO, ERUR #### [facility] [address] [address] [address] Manuel Sandhu OPI Negative Normal NEGATIVE [facility] Comment on above: Performed By: #### U MICRO, ERUR #### [facility] [address] [address] [address] Manuel Sandhu OXY Negative Normal NEGATIVE [facility] Comment on above: Performed By: #### U MICRO, ERUR #### [facility] [address] [address] [address] Manuel Sandhu PCP Negative Normal NEGATIVE [facility] Comment on above: Performed By: #### U MICRO, ERUR #### [facility] [address] [address] [address] Manuel Sandhu PPX Negative Normal NEGATIVE [facility] Comment on above: Performed By: #### U MICRO, ERUR #### [facility] [address] [address] [address] Manuel Sandhu TCA Negative Normal NEGATIVE [facility] Comment on above: Performed By: #### U MICRO, ERUR #### [facility] [address] [address] [address] Manuel Sandhu THC Negative Normal NEGATIVE [facility] Comment on above: Performed By: #### U MICRO, ERUR #### [facility] [address] [address] [address] Manuel Sanduh ER URINE PROFILEon 2 Bilirubin Ql (U) Negative Normal NEGATIVE [facility] Comment on above: Performed By: #### U MICRO, ERUR #### [facility] [address] [address] [address] Manuel Sandhu Clarity (U) CLEAR Normal CLEAR [facility] Comment on above: Performed By: #### U MICRO, ERUR #### [facility] [address] [address] [address] Manuel Sandhu Color (U) LT. YELLOW Normal YELLOW [facility] Comment on above: Performed By: #### U MICRO, ERUR #### [facility] [address] [address] [address] Manuel CUNHA A micrscopic examina tion will be performed if indicated. Normal [facility] Comment on above: Performed By: #### U MICRO, ERUR #### [facility] [address] [address] [address] Manuel Sandhu Glucose Ql (U) Negative Normal NEGATIVE The [facility] Comment on above: Performed By: #### U MICRO, ERUR #### [facility] [address] [address] [address] Manuel Sandhu Hemoglobin Ql (U) Negative Normal NEGATIVE The [facility] Comment on above: Performed By: #### U MICRO, ERUR #### [facility] [address] [place] [address] Dr. Manuel Sandhu Ketones Ql (U) Negative Normal NEGATIVE [facility] Comment on above: Performed By: #### U MICRO, ERUR #### [facility] [address] [address] [address] Manuel Sandhu LEUKOCYTES Negative Normal NEGATIVE [facility] Comment on above: Performed By: #### U MICRO, ERUR #### [facility] [address] [address] [address] Manuel Sandhu Nitrite Ql (U) Negative Normal NEGATIVE [facility] Comment on above: Performed By: #### U MICRO, ERUR #### [facility] [address] [address] [address] Manuel Sandhu pH (U) 5.5 [pH] Normal 5-9 [facility] Comment on above: Performed By: #### U MICRO, ERUR #### [facility] [address] [address] [address] Manuel Sandhu SPEC GRAVITY <=1.005 Abnormal 1.005-<=1. 025 [facility] Comment on above: Performed By: #### U MICRO, ERUR #### [facility] [address] [address] [address] Manuel Sandhu UA PROTEIN Negative Normal NEGATIVE/ TRACE [facility] Comment on above: Performed By: #### U MICRO, ERUR #### [facility] [address] [address] [address] Manuel Sandhu UR MICRO IND NOT INDICATED Normal [facility] Comment on above: Performed By: #### U MICRO, ERUR #### [facility] [address] [address] [address] Manuel Sandhu Urobilinogen Qn (U) 0.2 {Lucila'U}/dL Normal 0.2 - 1. 0 [facility] Comment on above: Performed By: #### U MICRO, ERUR #### [facility] [address] [place] [address] Dr. Manuel Sandhu ETHANOL (BLD ALC)on 01-31-20 22 ALC NOTE NOTE: 80 mg/dl is th e legal limit for a blood alcohol level Normal [facility] Comment on above: Performed By: #### I NFLUAB #### [facility] [address] [address] [address] Manuel Sandhu Ethanol [Mass/Vol] 47 mg/dL Normal [facility] Comment on above: Performed By: #### I NFLUAB #### [facility] [address] [address] [address] Manuel Sandhu PREG HCG QUALon 01-30-2022 , QUAL Negative Normal NEGATIVE [facility] Comment on above: Performed By: #### U MICRO, ERUR #### [facility] [address] [address] [address] Manuel Sandhu PROF 14(COMP METB)on 022 Albumin [Mass/Vol] 3.8 g/dL Normal 3.4-5.0 [facility] Comment on above: Performed By: #### I NFLUAB #### [facility] [address] [place] [address] Dr. Manuel Sanduh Albumin/Globulin [Mass ratio] 1.1 {ratio} Normal [facility] Comment on above: Performed By: #### I NFLUAB #### [facility] [address] [address] [address] Manuel Sandhu ALP [Catalytic activity/Vol] 88 U/L Normal 46-116 [facility] Comment on above: Performed By: #### I NFLUAB #### [facility] [address] [address] [address] Manuel Sandhu ALT [Catalytic activity/Vol] 30 U/L Normal 14-59 [facility] Comment on above: Performed By: #### I NFLUAB #### [facility] [address] [address] [address] Manuel Sandhu Anion gap [Moles/Vol] 17.3 mmol/L Normal [facility] Comment on above: Performed By: #### I NFLUAB #### [facility] [address] [address] [address] Manuel Sandhu AST [Catalytic activity/Vol] 17 U/L Normal 15-37 [facility] Comment on above: Performed By: #### I NFLUAB #### [facility] [address] [address] [address] Manuel Sandhu Bilirubin [Mass/Vol] 0.2 mg/dL Normal 0.2-1.0 [facility] Comment on above: Performed By: #### I NFLUAB #### [facility] [address] [address] [address] Manuel Sandhu Calcium [Mass/Vol] 8.9 mg/dL Normal 8.5-10.1 [facility] Comment on above: Performed By: #### I NFLUAB #### [facility] [address] [address] [address] Manuel Sandhu Chloride [Moles/Vol] 109 mmol/L Critically high 98-107 [facility] Comment on above: Performed By: #### I NFLUAB #### [facility] [address] [address] [address] Manuel Sandhu CO2 [Moles/Vol] 20.2 mmol/L Critically low 21.0-32.0 [facility] Comment on above: Performed By: #### I NFLUAB #### [facility] [address] [address] [address] Manuel Sandhu Creatinine [Mass/Vol] 0.69 mg/dL Normal 0.55-1.02 [facility] Comment on above: Performed By: #### I NFLUAB #### [facility] [address] [address] [address] Manuel Sandhu EGFR-AF SAO TOMEAN >60 Normal >=60 [facility] Comment on above: Performed By: #### I NFLUAB #### [facility] [address] [address] [address] Manuel Sandhu EGFR-NON AF SAO TOMEAN >60 Normal >=60 [facility] Comment on above: Performed By: #### I NFLUAB #### [facility] [address] [place] [address] Dr. Manuel Sandhu Globulin (S) [Mass/Vol] 3.6 g/dL Normal [facility] Comment on above: Performed By: #### I NFLUAB #### [facility] [address] [place] [address] Dr. Manuel Sandhu Glucose [Mass/Vol] 79 mg/dL Normal 74-106 [facility] Comment on above: Performed By: #### I NFLUAB #### [facility] [address] [place] [address] Dr. Manuel Sandhu Potassium [Moles/Vol] 3.5 mmol/L Normal 3.5-5.1 [facility] Comment on above: Performed By: #### I NFLUAB #### [facility] [address] [place] [address] Dr. Manuel Sandhu Protein [Mass/Vol] 7.4 g/dL Normal 6.4-8.2 [facility] Comment on above: Performed By: #### I NFLUAB #### [facility] [address] [place] [address] Dr. Manuel Sandhu Sodium [Moles/Vol] 143 mmol/L Normal 136-145 [facility] Comment on above: Performed By: #### I NFLUAB #### [facility] [address] [place] [address] Dr. Manuel Sandhu Urea nitrogen [Mass/Vol] 18.0 mg/dL Normal 7.0-18.0 [facility] Comment on above: Performed By: #### I NFLUAB #### [facility] [address] [place] [address] Dr. Manuel Sandhu Urea nitrogen/Creatinine [Mass ratio] 26.1 mg/mg Normal [facility] Comment on above: Performed By: #### I NFLUAB #### [facility] [address] [place] [address] Dr. Manuel Sandhu AMYLASEon 11-16-2021 Amylase [Catalytic activity/Vol] 60 U/L Normal 31-110 [facility] Comment on above: Performed By: #### C MP, JENNIE, LIPA #### [facility] [address] [place] [address] Dr. Manuel Sandhu CBC AUTO DIFFon 11-16-2021 BASO # 0.1 103/ul Normal 0.0-0.1 [facility] Comment on above: Performed By: #### C MP, JENNIE, LIPA #### [facility] [address] [place] [address] Dr. Manuel Sandhu Basophils/100 WBC (Bld) 0.5 % Normal 0.2-2.0 [facility] Comment on above: Performed By: #### C MP, JENNIE, LIPA #### [facility] [address] [place] [address] Dr. Manuel Sandhu EO # 0.3 103/ul Normal 0.0-0.7 [facility] Comment on above: Performed By: #### C MP, JENNIE, LIPA #### [facility] [address] [place] [address] Dr. Manuel Sandhu Eosinophils/100 WBC (Bld) 3.1 % Normal 0.9-7.0 [facility] Comment on above: Performed By: #### C MP, JENNIE, LIPA #### [facility] [address] [place] [address] Dr. Manuel Sandhu Erythrocyte distribution width (RBC) [Ratio] 13.4 % Normal 11.0-15.0 [facility] Comment on above: Performed By: #### C JENNIE PATRICK, LIPA #### [facility] [address] [place] [address] Dr. Manuel Sandhu Hematocrit (Bld) [Volume fraction] 39.0 % Normal 36.0-48.0 [facility] Comment on above: Performed By: #### C MP JENNIE, LIPA #### [facility] [address] [place] [address] Dr. Manuel Sandhu Hemoglobin (Bld) [Mass/Vol] 12.8 g/dL Normal 12.0-16.0 [facility] Comment on above: Performed By: #### C JENNIE PATRICK, LIPA #### [facility] [address] [place] [address] Dr. Manuel Sandhu IG # 0.03 10e3/ul Normal 0.00-0.03 [facility] Comment on above: Performed By: #### C JENNIE PATRICK LIPA #### [facility] [address] [place] [address] Dr. Manuel Sandhu IG % 0.3 % Normal 0.0-0.5 [facility] Comment on above: Performed By: #### C JENNIE PATRICK, LIPA #### [facility] [address] [place] [address] Dr. Manuel Sandhu LYMPH # 2.8 103/ul Normal 1.2-3.8 [facility] Comment on above: Performed By: #### C CELINA JENNIE, LIPA #### [facility] [address] [place] [address] Dr. Manuel Sandhu Lymphocytes/100 WBC (Bld) 29.9 % Normal 20.5-60.0 [facility] Comment on above: Performed By: #### C JENNIE PATRICK, LIPA #### [facility] [address] [place] [address] Dr. Manuel Sandhu MANUAL DIFF REQ NO Normal [facility] Comment on above: Performed By: #### C JENNIE PATRICK, LIPA #### [facility] [address] [place] [address] Dr. Manuel Sandhu MCH (RBC) [Entitic mass] 32.2 pg Normal 26.7-34.0 [facility] Comment on above: Performed By: #### C CELINA JENNIE, LIPA #### [facility] [address] [place] [address] Dr. Manuel Sandhu MCHC (RBC) [Mass/Vol] 32.8 g/dL Normal 29.9-35.2 [facility] Comment on above: Performed By: #### C CELINA JENNIE, LIPA #### [facility] [address] [place] [address] Dr. Manuel Sandhu MCV (RBC) [Entitic vol] 98.0 fL Normal 81.0-99.0 [facility] Comment on above: Performed By: #### C MP JENNIE, LIPA #### [facility] [address] [place] [address] Dr. Manuel Sandhu MONO # 0.7 103/ul Normal 0.3-0.8 [facility] Comment on above: Performed By: #### C CELINA JENNIE, LIPA #### [facility] [address] [place] [address] Dr. Manuel Sandhu Monocytes/100 WBC (Bld) 7.7 % Normal 1.7-12.0 [facility] Comment on above: Performed By: #### C CELINA JENNIE, LIPA #### [facility] [address] [place] [address] Dr. Manuel Sandhu NEUT # 5.5 103/ul Normal 1.4-6.5 [facility] Comment on above: Performed By: #### C MP, JENNIE, LIPA #### [facility] [address] [place] [address] Dr. Manuel Sandhu Neutrophils/100 WBC (Bld) 58.5 % Normal 43.0-75.0 [facility] Comment on above: Performed By: #### C MP, JENNIE, LIPA #### [facility] [address] [place] [address] Dr. Manuel Sandhu Platelet mean volume (Bld) [Entitic vol] 11.7 fL Normal 9.5-13.5 [facility] Comment on above: Performed By: #### C MP, JENNIE, LIPA #### [facility] [address] [place], [place] [address] Dr. Manuel Sandhu PLT 301 103/ul Normal 150-450 [facility] Comment on above: Performed By: #### C MP, JENNIE, LIPA #### [facility] [address] [place], [place] [address] Dr. Manuel Sandhu RBC 3.98 106/ul Critically low 4.20-5.40 [facility] Comment on above: Performed By: #### C MP, JENNIE, LIPA #### [facility] [address] [address] [address] Manuel Sandhu WBC 9.3 103/ul Normal 4.0-11.0 [facility] Comment on above: Performed By: #### C MP, JENNIE, LIPA #### [facility] [address] [id number] Manuel Sandhu CT ABD/PELVIS WO CONon [...] HARMONY HARRELL Date: 2021-11-16 19:55 Normal [facility] ER URINE PROFILEon 2 Bilirubin Ql (U) Negative Normal NEGATIVE [facility] Comment on above: Performed By: #### C JENNIE PATRICK LIPA #### [facility] [address] [place] [address] Dr. Manuel Sandhu Clarity (U) CLEAR Normal CLEAR [facility] Comment on above: Performed By: #### C JENNIE PATRICK LIPA #### [facility] [address] [place] [address] Dr. Manuel Sandhu Color (U) LT. YELLOW Normal YELLOW [facility] Comment on above: Performed By: #### C JENNIE PATRICK LIPA #### [facility] [address] [place] [address] Dr. Manuel CUNHA A micrscopic examina tion will be performed if indicated. Normal [facility] Comment on above: Performed By: #### C MP, JENNIE, LIPA #### [facility] [address] [place] [address] Dr. Manuel Sandhu Glucose Ql (U) Negative Normal NEGATIVE [facility] Comment on above: Performed By: #### C MP, JENNIE, LIPA #### [facility] [address] [address] [address] Manuel Sandhu Hemoglobin Ql (U) Negative Normal NEGATIVE [facility] Comment on above: Performed By: #### C MP, JENNIE, LIPA #### [facility] [address] [place] [address] Dr. Manuel Sandhu Ketones Ql (U) Negative Normal NEGATIVE [facility] Comment on above: Performed By: #### C MP, JENNIE, LIPA #### [facility] [address] [place] [address] Dr. Manuel Sandhu LEUKOCYTES Negative Normal NEGATIVE [facility] Comment on above: Performed By: #### C MP, JENNIE, LIPA #### [facility] [address] [place] [address] Dr. Manuel Sandhu Nitrite Ql (U) Negative Normal NEGATIVE [facility] Comment on above: Performed By: #### C MP, JENNIE, LIPA #### [facility] [address] [place] [address] Dr. Manuel Sandhu pH (U) 7.0 [pH] Normal 5-9 [facility] Comment on above: Performed By: #### C MP, JENNIE, LIPA #### [facility] [address] [place] [address] Dr. Manuel Sandhu SPEC GRAVITY <=1.005 Abnormal 1.005-<=1. 025 [facility] Comment on above: Performed By: #### C MP, JENNIE, LIPA #### [facility] [address] [place] [address] Dr. Manuel Sandhu UA PROTEIN Negative Normal NEGATIVE/ TRACE [facility] Comment on above: Performed By: #### C MP, JENNIE, LIPA #### [facility] [address] [place] [address] Dr. Manuel Sandhu UR MICRO IND NOT INDICATED Normal [facility] Comment on above: Performed By: #### C MP, JENNIE, LIPA #### [facility] [address] [place] [address] Dr. Manuel Sandhu Urobilinogen Qn (U) 0.2 {Lucila'U}/dL Normal 0.2 - 1. 0 [facility] Comment on above: Performed By: #### C MP, JENNIE, LIPA #### [facility] [address] [place] [address] Dr. Manuel Sandhu LIPASEon 11-16-2021 Lipase [Catalytic activity/Vol] 78.0 U/L Normal 23.0-300.0 [facility] Comment on above: Performed By: #### C MP JENNIE, LIPA #### [facility] [address] [place] [address] Dr. Manuel Sandhu URon 11-16-2021 , QUAL Negative Normal NEGATIVE [facility] Comment on above: Performed By: #### C MP, JENNIE, LIPA #### [facility] [address] [place] [address] Dr. Manuel Sandhu PROF 14(COMP METB)on 022 Albumin [Mass/Vol] 4.1 g/dL Normal 3.5-5.0 [facility] Comment on above: Performed By: #### C MP, JENNIE, LIPA #### [facility] [address] [place] [address] Dr. Manuel Sandhu Albumin/Globulin [Mass ratio] 1.1 {ratio} Normal [facility] Comment on above: Performed By: #### C MP, JENNIE, LIPA #### [facility] [address] [place] [address] Dr. Manuel Sandhu ALP [Catalytic activity/Vol] 102 U/L Normal 38-126 [facility] Comment on above: Performed By: #### C MP, JENNIE, LIPA #### [facility] [address] [address] [address] Manuel Sandhu ALT [Catalytic activity/Vol] 39 U/L Normal 9-52 [facility] Comment on above: Performed By: #### C JENNIE PATRICK, LIPA #### [facility] [address] [place] [address] Dr. Manuel Sandhu Anion gap [Moles/Vol] 11.5 mmol/L Normal [facility] Comment on above: Performed By: #### C CELINA JENNIE, LIPA #### [facility] [address] [place] [address] Dr. Manuel Sandhu AST [Catalytic activity/Vol] 28 U/L Normal 14-36 [facility] Comment on above: Performed By: #### C CELINA JENNIE, LIPA #### [facility] [address] [place] [address] Dr. Manuel Sandhu Bilirubin [Mass/Vol] 0.2 mg/dL Normal 0.2-1.3 [facility] Comment on above: Performed By: #### C CELINA JENNIE, LIPA #### [facility] [address] [place] [address] Dr. Manuel Sandhu Calcium [Mass/Vol] 9.1 mg/dL Normal 8.4-10.2 [facility] Comment on above: Performed By: #### C CELINA JENNIE, LIPA #### [facility] [address] [place] [address] Dr. Manuel Sandhu Chloride [Moles/Vol] 105 mmol/L Normal 98-107 [facility] Comment on above: Performed By: #### C MP JENNIE, LIPA #### [facility] [address] [place] [address] Dr. Manuel Sandhu CO2 [Moles/Vol] 25.0 mmol/L Normal 22.0-30.0 [facility] Comment on above: Performed By: #### C MP JENNIE, LIPA #### [facility] [address] [place] [address] Dr. Manuel Sandhu Creatinine [Mass/Vol] 0.77 mg/dL Normal 0.52-1.04 [facility] Comment on above: Performed By: #### C MP, JENNIE, LIPA #### [facility] [address] [address] [address] Manuel Sandhu EGFR-AF SAO TOMEAN >60 Normal >=60 [facility] Comment on above: Performed By: #### C MP, JENNIE, LIPA #### [facility] [address] [address] [address] Manuel Sandhu EGFR-NON AF SAO TOMEAN >60 Normal >=60 [facility] Comment on above: Performed By: #### C MP, JENNIE, LIPA #### [facility] [address] [address] [address] Manuel Sandhu Globulin (S) [Mass/Vol] 3.8 g/dL Normal [facility] Comment on above: Performed By: #### C MP, JENNIE, LIPA #### [facility] [address] [address] [address] Manuel Sandhu Glucose [Mass/Vol] 85 mg/dL Normal 74-106 [facility] Comment on above: Performed By: #### C MP, JENNIE, LIPA #### [facility] [address] [address] [address] Manuel Sandhu Potassium [Moles/Vol] 3.5 mmol/L Normal 3.4-5.0 [facility] Comment on above: Performed By: #### C MP, JENNIE, LIPA #### [facility] [address] [address] [address] Manuel Sandhu Protein [Mass/Vol] 7.9 g/dL Normal 6.1-8.2 [facility] Comment on above: Performed By: #### C MP, JENNIE, LIPA #### [facility] [address] [address] [address] Manuel Sandhu Sodium [Moles/Vol] 138 mmol/L Normal 137-145 [facility] Comment on above: Performed By: #### C MP, JENNIE, LIPA #### [facility] [facility] [address] [address] [address] Manuel Sandhu Urea nitrogen [Mass/Vol] 18.0 mg/dL Critically high 7.0-17.0 [facility] Comment on above: Performed By: #### C JENNIE PATRICK LIPA #### [facility] [address], [place] [address] Dr. Manuel Sandhu Urea nitrogen/Creatinine [Mass ratio] 23.4 mg/mg Normal [facility] Comment on above: Performed By: #### C JENNIE PATRICK LIPA #### [facility] [address], [place] [address] ABDOMEN PELVIS W IV CONTR AST Additional Contrast? OralOrdered By: Gamaliel Harris on 02-04-2021 1. Partially improve d focal inflammatory process in the left upper quadrant mesentery and proximal small bowel loops. The previously seen fluid collection is no longer identified. Consider follow-up CT abdomen and pelvis in 2-3 months to assure complete resolution. 2. Status post Giuliana-en-Y gastric bypass. No bowel obstruction. 3. A few small hypodensities are noted in the liver, which are nonspecific, possibly focal fatty infiltration. Attention on follow-up imaging. 4. Mildly distended gallbladder. No cholelithiasis or pericholecystic inflammatory change. 5. Small amount of free fluid in the pelvis, which could be physiologic. [employer] Phone: EXAMINATION: CT OF T HE ABDOMEN AND PELVIS WITH CONTRAST 02/04/2021 1:00 [...] HISTORY: Omental infarction (HCC) TECHNOLOGIST PROVIDED HISTORY: Giuliana-en-Y gastric bypass on 01/07/2021 FINDINGS: Lower Chest: [...] hydronephrosis or perinephric inflammation. GI/Bowel: Evidence of Giuliana-en-Y gastric bypass surgery is again noted. Previously [...] for the patient's age. No pelvic lymphadenopathy. Peritoneum/Retroperitoneu m: Abdominal aorta is normal in caliber. No retroperitoneal lymphadenopathy. Bones/Soft Tissues: There is mild stranding in the midline and left upper abdominal wall subcutaneous fat. No fluid collection or gas in the subcutaneous fat. No acute or suspicious osseous abnormality. 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 [employer] Work Phone: Dario, [facility] Incoming Radiant Results From [employer] - 02/04/2021 4:32 PM EDT EXAMINATION: CT [...] HISTORY: Omental infarction (HCC) TECHNOLOGIST PROVIDED HISTORY: Giuliana-en-Y gastric bypass on 01/07/2021 FINDINGS: Lower Chest: [...] hydronephrosis or perinephric inflammation. GI/Bowel: Evidence of Giuliana-en-Y gastric bypass surgery is again noted. Previously [...] for the patient's age. No pelvic lymphadenopathy. Peritoneum/Retroperitoneu m: Abdominal aorta is normal in caliber. No [...] to assure complete resolution. 2. Status post Giuliana-en-Y gastric bypass. No bowel obstruction. 3. A few small hypodensities are noted in the liver, which are nonspecific, possibly focal fatty infiltration. Attention on follow-up imaging. 4. Mildly distended gallbladder. No cholelithiasis or pericholecystic inflammatory change. 5. Small amount of free fluid in the pelvis, which could be physiologic. [employer] Phone: [employer] Phone: Basic Metabolic Panel w/ Ref brannon to MGOrdered By: Ruiz Joel on 02-01-2021 Anion gap [Moles/Vol] 15 mmol/L 9 - 17 mmol/L [employer] Phone: Calcium [Mass/Vol] 8.5 mg/dL Low 8.6 - 10. 4 mg/dL [employer] Phone: Chloride [Moles/Vol] 107 mmol/L 98 - 10 7 mmol/L [employer] Phone: CO2 [Moles/Vol] 16 mmol/L Low 20 - 31 mmol/L [employer] Phone: Creatinine [Mass/Vol] 0.36 mg/dL Low 0.50 - 0.90 mg/dL [employer] Phone: GFR >60 >60 mL/min [employer] Phone: GFR Non- >60 >60 mL/min [employer] Phone: GFR/1.73 sq M.predicted MDRD (S/P/Bld) [Vol rate/Area] [employer] Phone: Comment on above: Average GFR for 30-3 9 years old: 107 mL/min/1.73sq m Chronic Kidney Disease: <60 mL/min/1.73sq m Kidney failure: <15 mL/min/1.73sq m eGFR calculated using average adult body mass. Additional eGFR calculator available at: http://www.[employer]/multiple_crcl_2012.htm GFR/1.73 sq M.predicted MDRD (S/P/Bld) [Vol rate/Area] NOT REPORTED [employer] Phone: Glucose [Mass/Vol] 79 mg/dL 70 - 99 mg/dL [employer] Phone: Interpretation and review of laboratory results Abnormal [employer] Phone: Potassium [Moles/Vol] 3.7 mmol/L 3.7 - 5.3 mmol/L [employer] Phone: Sodium [Moles/Vol] 138 mmol/L 135 - 144 mmol/L [employer] Phone: Urea nitrogen (BldV) [Mass/Vol] 2 mg/dL Low 6 - 20 mg/dL [employer] Work Phone: Urea nitrogen/Creatinine (Bld) [Mass ratio] NOT REPORTED [employer] Work Phone: [employer] Work Phone: CBC WITH AUTO DIFFERENTIALOr dered By: Ruiz Joel on 02-01-2021 Absolute Eos # 0.28 [employer] [facility] Work Phone: Absolute Immature Granulocyte 0.06 [employer] Work Phone: Absolute Lymph # 1.62 [employer] [facility] Work Phone: Absolute [place] # 1.46 High [employer] [facility] Work Phone: Basophils (Bld) [#/Vol] 0.04 10*3/uL [employer] Work Phone: Basophils/100 WBC (Bld) 0 % 0 - 2 % [employer] Work Phone: Differential Type NOT REPORTED [employer] Phone: Eosinophils/100 WBC (Bld) 3 % 1 - 4 % [employer] Phone: Hematocrit (Bld) [Volume fraction] 33.7 % Low 36.3 - 47.1 % [employer] Phone: Hemoglobin.gastrointes tinal spec 1 Ql (Stl) 10.3 g/dL Low 11.9 - 15.1 g/dL [employer] Work Phone: Immature granulocytes/100 WBC (Bld) 1 % High 0 [employer] Work Phone: Interpretation and review of laboratory results Abnormal [employer] Phone: Lymphocytes/100 WBC (Bld) 14 % Low 24 - 43 % [employer] Work Phone: MCH (RBC) [Entitic mass] 29.9 pg 25.2 - 33.5 pg [employer] Phone: MCHC (RBC) [Mass/Vol] 30.6 g/dL 28.4 - 34.8 g/dL [employer] Phone: MCV (RBC) [Entitic vol] 98.0 fL 82.6 - 102.9 fL [employer] Phone: Monocytes/100 WBC (Bld) 13 % High 3 - 12 % [employer] Work Phone: NRBC Automated 0.0 0.0 per 100 WBC [employer] Phone: Platelet distribution width (Bld) [Ratio] 13.4 % 11.8 - 14.4 % [employer] Phone: Platelet Estimate NOT REPORTED [employer] Phone: Platelet mean volume (Bld) [Entitic vol] 11.6 fL 8.1 - 13.5 fL [employer] Phone: Platelets (Bld) [#/Vol] 392 10*3/uL [employer] Phone: RBC (Bld) [#/Vol] 3.44 10*6/uL Low 3.95 - 5.11 m/uL [employer] Phone: RBC (Bld) [#/Vol] NOT REPORTED [employer] Phone: Segmented neutrophils/100 WBC (Bld) 69 % High 36 - 65 % [employer] Phone: Segs Absolute 7.88 [employer] Work Phone: WBC (Bld) [#/Vol] 11.3 10*3/uL [employer] Phone: WBC (Bld) [#/Vol] NOT REPORTED [employer] Phone: [employer] Work Phone: Basic Metabolic Panel w/ Ref brannon to MGOrdered By: Nicolasa Le on 01-31-2021 Anion gap [Moles/Vol] 17 mmol/L 9 - 17 mmol/L [employer] Phone: Calcium [Mass/Vol] 8.7 mg/dL 8.6 - 10. 4 mg/dL [employer] Phone: Chloride [Moles/Vol] 105 mmol/L 98 - 10 7 mmol/L [employer] Phone: CO2 [Moles/Vol] 15 mmol/L Low 20 - 31 mmol/L [employer] Phone: Creatinine [Mass/Vol] 0.36 mg/dL Low 0.50 - 0.90 mg/dL [employer] Phone: GFR >60 >60 mL/min [employer] [employer] Phone: GFR Non- >60 >60 mL/min [employer] Phone: GFR/1.73 sq M.predicted MDRD (S/P/Bld) [Vol rate/Area] [employer] Phone: Comment on above: Average GFR for 30-3 9 years old: 107 mL/min/1.73sq m Chronic Kidney Disease: <60 mL/min/1.73sq m Kidney failure: <15 mL/min/1.73sq m eGFR calculated using average adult body mass. Additional eGFR calculator available at: http://www.[employer].Nerdies/multiple_crcl_2012.htm GFR/1.73 sq M.predicted MDRD (S/P/Bld) [Vol rate/Area] NOT REPORTED [employer] Phone: Glucose [Mass/Vol] 78 mg/dL 70 - 99 mg/dL [employer] Phone: Interpretation and review of laboratory results Abnormal [employer] Phone: Potassium [Moles/Vol] 3.8 mmol/L 3.7 - 5.3 mmol/L [employer] Work Phone: Sodium [Moles/Vol] 137 mmol/L 135 - 144 mmol/L [employer] Work Phone: Urea nitrogen (BldV) [Mass/Vol] 3 mg/dL Low 6 - 20 mg/dL [employer] Work Phone: Urea nitrogen/Creatinine (Bld) [Mass ratio] NOT REPORTED [employer] Work Phone: [employer] Work Phone: CBC auto differentialOrdered By: Nicolasa Le on 01-31-2021 [employer] Eos # 0.30 [employer] [facility] Work Phone: Absolute Immature Granulocyte 0.15 [employer] Work Phone: Absolute Lymph # 2.10 [facility] Work Phone: Absolute [place] # 2.25 High [employer] [facility] Work Phone: Basophils (Bld) [#/Vol] 0.00 10*3/uL [employer] Work Phone: Basophils/100 WBC (Bld) 0 % 0 - 2 % [employer] Work Phone: Differential Type NOT REPORTED [employer] Work Phone: Eosinophils/100 WBC (Bld) 2 % 1 - 4 % [employer] Work Phone: Hematocrit (Bld) [Volume fraction] 35.7 % Low 36.3 - 47.1 % [employer] Work Phone: Hemoglobin.gastrointes tinal spec 1 Ql (Stl) 10.8 g/dL Low 11.9 - 15.1 g/dL [employer] Work Phone: Immature granulocytes/100 WBC (Bld) 1 % High 0 [employer] Work Phone: Interpretation and review of laboratory results Abnormal [employer] Work Phone: Lymphocytes/100 WBC (Bld) 14 % Low 24 - 43 % [employer] Phone: MCH (RBC) [Entitic mass] 29.9 pg 25.2 - 33.5 pg [employer] Phone: MCHC (RBC) [Mass/Vol] 30.3 g/dL 28.4 - 34.8 g/dL [employer] Phone: MCV (RBC) [Entitic vol] 98.9 fL 82.6 - 102.9 fL [employer] Phone: Monocytes/100 WBC (Bld) 15 % High 3 - 12 % [employer] Phone: Morphology Celso (Bld) [Interp] Normal [employer] Phone: NRBC Automated 0.0 0.0 per 100 WBC [employer] Phone: Platelet distribution width (Bld) [Ratio] 13.5 % 11.8 - 14.4 % [employer] Phone: Platelet Estimate NOT REPORTED [employer] Phone: Platelet mean volume (Bld) [Entitic vol] 11.6 fL 8.1 - 13.5 fL [employer] Phone: Platelets (Bld) [#/Vol] 375 10*3/uL [employer] Phone: RBC (Bld) [#/Vol] 3.61 10*6/uL Low 3.95 - 5.11 m/uL [employer] Phone: RBC (Bld) [#/Vol] NOT REPORTED [employer] Phone: Segmented neutrophils/100 WBC (Bld) 68 % High 36 - 65 % [employer] Phone: Segs Absolute 10.20 High [employer] Work Phone: WBC (Bld) [#/Vol] 15.0 10*3/uL High [employer] Work Phone: WBC (Bld) [#/Vol] NOT REPORTED [employer] Work Phone: [employer] Work Phone: CBC Auto DifferentialOrdered By: David Nash on 01-30-2021 [employer] # 0.21 [employer] [facility] Work Phone: Absolute Immature Granulocyte 0.04 [employer] Work Phone: Absolute Lymph # 1.88 [employer] [facility] Work Phone: Absolute [place] # 1.43 High [employer] [facility] Work Phone: Basophils (Bld) [#/Vol] 0.04 10*3/uL [employer] Work Phone: Basophils/100 WBC (Bld) 0 % 0 - 2 % [employer] Work Phone: Differential Type NOT REPORTED [employer] Work Phone: Eosinophils/100 WBC (Bld) 2 % 1 - 4 % [employer] Phone: Hematocrit (Bld) [Volume fraction] 36.2 % Low 36.3 - 47.1 % [employer] Phone: Hemoglobin.gastrointes tinal spec 1 Ql (Stl) 11.7 g/dL Low 11.9 - 15.1 g/dL [employer] Work Phone: Immature granulocytes/100 WBC (Bld) 0 % 0 [employer] Work Phone: Interpretation and review of laboratory results Abnormal [employer] Phone: Lymphocytes/100 WBC (Bld) 15 % Low 24 - 43 % [employer] Work Phone: MCH (RBC) [Entitic mass] 30.3 pg 25.2 - 33.5 pg [employer] Work Phone: MCHC (RBC) [Mass/Vol] 32.3 g/dL 28.4 - 34.8 g/dL [employer] Phone: MCV (RBC) [Entitic vol] 93.8 fL 82.6 - 102.9 fL [employer] Phone: Monocytes/100 WBC (Bld) 12 % 3 - 12 % [employer] Work Phone: NRBC Automated 0.0 0.0 per 100 WBC [employer] Phone: Platelet distribution width (Bld) [Ratio] 13.2 % 11.8 - 14.4 % [employer] Phone: Platelet Estimate NOT REPORTED [employer] Phone: Platelet mean volume (Bld) [Entitic vol] 11.6 fL 8.1 - 13.5 fL [employer] Phone: Platelets (Bld) [#/Vol] 414 10*3/uL [employer] Work Phone: RBC (Bld) [#/Vol] 3.86 10*6/uL Low 3.95 - 5.11 m/uL [employer] Work Phone: RBC (Bld) [#/Vol] NOT REPORTED [employer] Phone: Segmented neutrophils/100 WBC (Bld) 71 % High 36 - 65 % [employer] Work Phone: Segs Absolute 8.75 High [employer] Work Phone: WBC (Bld) [#/Vol] 12.4 10*3/uL High [employer] Work Phone: WBC (Bld) [#/Vol] NOT REPORTED [employer] Phone: [employer] Work Phone: CT ABDOMEN PELVIS W IV CONTR [...] anterolisthesis and marked decrease in disc height. [employer] Phone: EXAMINATION: CT OF T HE ABDOMEN AND PELVIS WITH CONTRAST 01/30/2021 10:36 [...] No urinary bladder wall thickening was noted. Peritoneum/Retroperitoneu m: No abdominal or pelvic lymphadenopathy were identified. Bones/Soft Tissues: Subcutaneous soft tissue inflammation was noted along the left anterolateral abdominal wall. Grade 1 anterolisthesis of L5 over S1 was noted secondary to bilateral pars interarticularis defects. Marked decrease in disc height was noted at the L5-S1 disc. [employer] Phone: Dario, [facility] Incoming Radiant Results From [employer] - 01/30/2021 12:20 PM EDT EXAMINATION: CT [...] No urinary bladder wall thickening was noted. Peritoneum/Retroperitoneu m: No abdominal or pelvic lymphadenopathy were identified. [...] anterolisthesis and marked decrease in disc height. [employer] Phone: [employer] Phone: Comprehensive Metabolic Pane l w/ Reflex to MGOrdered By: David Nash on 01-30-2021 Albumin [Mass/Vol] 3.6 g/dL 3.5 - 5.2 g/dL [employer] Phone: Albumin/Globulin [Mass ratio] 1.0 {ratio} [employer] Phone: ALP (Bld) [Catalytic activity/Vol] 107 U/L High 35 - 104 U/L [employer] Phone: ALT [Catalytic activity/Vol] 33 U/L 5 - 33 U/L [employer] Phone: Anion gap [Moles/Vol] 17 mmol/L 9 - 17 mmol/L [employer] Phone: AST [Catalytic activity/Vol] 26 U/L <32 [employer] Phone: Bilirubin [Mass/Vol] 0.25 mg/dL Low 0.3 - 1 .2 mg/dL [employer] Phone: Calcium [Mass/Vol] 9.5 mg/dL 8.6 - 10. 4 mg/dL [employer] Phone: Chloride [Moles/Vol] 104 mmol/L 98 - 10 7 mmol/L [employer] Phone: CO2 [Moles/Vol] 19 mmol/L Low 20 - 31 mmol/L [employer] Phone: Creatinine [Mass/Vol] 0.47 mg/dL Low 0.50 - 0.90 mg/dL [employer] Phone: Free PSA/Total PSA [Mass fraction] 7.3 g/dL 6.4 - 8.3 g/dL [employer] Phone: GFR >60 >60 mL/min [employer] Phone: GFR Non- >60 >60 mL/min [employer] Phone: Glucose [Mass/Vol] 79 mg/dL 70 - 99 mg/dL [employer] Phone: Interpretation and review of laboratory results Abnormal [employer] Phone: Potassium [Moles/Vol] 3.8 mmol/L 3.7 - 5.3 mmol/L [employer] Phone: Sodium [Moles/Vol] 140 mmol/L 135 - 144 mmol/L [employer] Phone: Urea nitrogen (BldV) [Mass/Vol] 5 mg/dL Low 6 - 20 mg/dL [employer] Phone: Urea nitrogen/Creatinine (Bld) [Mass ratio] 11 [employer] Phone: HCG Qualitative, SerumOrdere d By: Noreen Mckeon on 01-30-2021 hCG Qual Negative NEGATIVE [employer] Phone: Comment on above: Specimens with hCG l evels near the threshold of the test (25 mIU/mL) may give a negative or indeterminate result. In such cases, another test should be performed with a new specimen in 48-72 hours. If early is suspected clinically in this setting, correlation with quantitative serum b-hCG level is suggested. [employer] has confirmed the use of plasma for this test. This has not been cleared or approved by the U.S. Food and Drug Administration. The FDA has determined that such clearance is not necessary. [employer] Phone: Laboratory - Chemistry and C hemistry - challengeOrdered By: David Nash on 01-30-2021 GFR/1.73 sq M.predicted MDRD (S/P/Bld) [Vol rate/Area] [employer] Phone: Comment on above: Average GFR for 30-3 9 years old: 107 mL/min/1.73sq m Chronic Kidney Disease: <60 mL/min/1.73sq m Kidney failure: <15 mL/min/1.73sq m eGFR calculated using average adult body mass. Additional eGFR calculator available at: http://www.[employer].Nerdies/multiple_crcl_2012.htm Stage 1: Some kidney damage normal GFR Stage 2: Mild kidney damage GFR 60-89 Stage 3: Moderate kidney damage GFR 30-59 Stage 4: Severe kidney damage GFR 15-29 Stage 5: Severe kidney damage GFR <15 ESRD - chronic treatment by dialysis or transplant Lactic AcidOrdered By: Beatriz Nash on 01-30-2021 Lactate [Moles/Vol] 0.6 mmol/L 0.5 - 2. 2 mmol/L [facility] Work Phone: [facility] Work Phone: LipaseOrdered By: David dalton on 01-30-2021 Lipase [Catalytic activity/Vol] 30 U/L 13 - 60 U/L [facility] [employer] Work Phone: Microscopic UrinalysisOrdere d By: David Nash on 01-30-2021 - [facility] [employer] Work Phone: Amorphous, UA NOT REPORTED None [facility] Work Phone: Bacteria, UA TRACE Abnormal None [facility] [employer] Work Phone: Casts UA NOT REPORTED /LPF [facility] [employer] Work Phone: Crystals, UA NOT REPORTED None /HPF [facility] Work Phone: Epithelial Cells UA 2 TO 5 [facility] [employer] Work Phone: Interpretation and review of laboratory results Abnormal [facility] [employer] Work Phone: Mucus, UA NOT REPORTED None [facility] [employer] Work Phone: Other Observations UA NOT REPORTED NOT REQ. M [facility] [employer] Work Phone: RBC, UA 0 TO 2 [facility] [employer] Work Phone: Renal Epithelial, UA NOT REPORTED 0 /HPF [facility] Work Phone: Trichomonas, UA NOT REPORTED None [facility] [employer] Work Phone: WBC, UA 2 TO 5 [facility] [employer] Work Phone: Yeast, UA NOT REPORTED None [facility] [employer] Work Phone: [facility] [employer] Work Phone: No Panel InformationOrdered By: David Nash on 01-30-2021 [facility] [employer] Work Phone: Protime-INROrdered By: Linda Mckeon on 01-30-2021 INR Coag (Bld) [Relative time] 1.1 {INR} [facility] [employer] Work Phone: Comment on above: Therapeutic Range: Moderate Anticoagulant Intensity: INR = 2.0-3.0 High Anticoagulant Intensity: INR = 2.5-3.5 PT Coag (PPP) [Time] 11.4 s [facility] [employer] Work Phone: [facility] [employer] Work Phone: Urinalysis, reflex to micros copicOrdered By: David Nash on 01-30-2021 Bilirubin Urine SMALL Abnormal NEGATIVE [facility] Work Phone: Color, UA YELLOW YELLOW [facility] [employer] Work Phone: Glucose, Ur Negative NEGATIVE [facility] Work Phone: Interpretation and review of laboratory results Abnormal [facility] [employer] Work Phone: Ketones Ql (U) 4+ Abnormal NEGATIVE [facility] Work Phone: Leukocyte esterase Test strip Ql (U) Negative NEGATIVE [facility] [employer] Work Phone: Nitrite, Urine Negative NEGATIVE [facility] Work Phone: pH, UA 5.5 [facility] [employer] Work Phone: Protein, UA Negative NEGATIVE [facility] Work Phone: Specific [employer], UA <1.005 Low [facility] [employer] Work Phone: Turbidity UA CLEAR CLEAR [employer] Phone: Urinalysis Comments NOT REPORTED [facility] [employer] Phone: Urine Hgb Negative NEGATIVE [facility] Phone: Urobilinogen, Urine Normal Normal [facility] Phone: [employer] Phone: Basic Metabolic PanelOrdered By: Gamaliel Harris on 01-08-2021 Anion gap [Moles/Vol] 11 mmol/L 9 - 17 mmol/L [employer] Phone: Calcium [Mass/Vol] 9.1 mg/dL 8.6 - 10. 4 mg/dL [employer] Phone: Chloride [Moles/Vol] 105 mmol/L 98 - 10 7 mmol/L [employer] Phone: CO2 [Moles/Vol] 23 mmol/L 20 - 31 mmol/L [employer] Phone: Creatinine [Mass/Vol] 0.57 mg/dL 0.50 - 0.90 mg/dL [employer] Phone: GFR >60 >60 mL/min [employer] Phone: GFR Non- >60 >60 mL/min [employer] Phone: GFR/1.73 sq M.predicted MDRD (S/P/Bld) [Vol rate/Area] [employer] Phone: Comment on above: Average GFR for 30-3 9 years old: 107 mL/min/1.73sq m Chronic Kidney Disease: <60 mL/min/1.73sq m Kidney failure: <15 mL/min/1.73sq m eGFR calculated using average adult body mass. Additional eGFR calculator available at: http://www.[employer]erdies/multiple_crcl_2012.htm GFR/1.73 sq M.predicted MDRD (S/P/Bld) [Vol rate/Area] NOT REPORTED [employer] Phone: Glucose [Mass/Vol] 106 mg/dL High 70 - 99 mg/dL [employer] Phone: Interpretation and review of laboratory results Abnormal [employer] Phone: Potassium [Moles/Vol] 3.7 mmol/L 3.7 - 5.3 mmol/L [employer] Phone: Sodium [Moles/Vol] 139 mmol/L 135 - 144 mmol/L [employer] Phone: Urea nitrogen (BldV) [Mass/Vol] 7 mg/dL 6 - 20 mg/dL [employer] Phone: Urea nitrogen/Creatinine (Bld) [Mass ratio] NOT REPORTED [employer] Phone: CBCOrdered By: Gamaliel castillo on 01-08-2021 Hematocrit (Bld) [Volume fraction] 38.0 % 36.3 - 47.1 % [employer] Phone: Hemoglobin.gastrointes tinal spec 1 Ql (Stl) 12.2 g/dL 11.9 - 15.1 g/dL [employer] Phone: Interpretation and review of laboratory results Abnormal [employer] Phone: MCH (RBC) [Entitic mass] 30.4 pg 25.2 - 33.5 pg [employer] Phone: MCHC (RBC) [Mass/Vol] 32.1 g/dL 28.4 - 34.8 g/dL [employer] Phone: MCV (RBC) [Entitic vol] 94.8 fL 82.6 - 102.9 fL [employer] Phone: NRBC Automated 0.0 0.0 per 100 WBC [employer] Phone: Platelet distribution width (Bld) [Ratio] 13.5 % 11.8 - 14.4 % [employer] Phone: Platelet mean volume (Bld) [Entitic vol] 11.4 fL 8.1 - 13.5 fL [employer] Phone: Platelets (Bld) [#/Vol] 304 10*3/uL [employer] Phone: RBC (Bld) [#/Vol] 4.01 10*6/uL 3.95 - 5.11 m/uL [employer] Phone: WBC (Bld) [#/Vol] 18.0 10*3/uL High [employer] Phone: FL ESOPHAGRAMOrdered By: Yadi Harris on 01-08-2021 No evidence of postoperative leak. [employer] Phone: EXAMINATION: SINGLE CONTRAST ESOPHAGRAM 01/08/2021 HISTORY: Reason for Exam: bypass COMPARISON: None. TECHNIQUE: Multiple single contrast images of the esophagus and gastroesophageal junction were obtained following the oral administration of water soluble contrast FLUOROSCOPY DOSE AND TYPE OR TIME AND EXPOSURES: DAP 26.184 gycm2 1.2 minutes FINDINGS: Contrast transits from the distal esophagus through the bypass and into the Giuliana limb without evidence of leak. Delayed imaging demonstrates no significant progression of contrast. Consider follow-up abdominal KUB/radiographs to assess progression as clinically warranted. [employer] Phone: Dario, pn Incoming Radiant Results From [employer] - 01/08/2021 12:29 PM EDT EXAMINATION: SINGLE [...] esophagus through the bypass and into the Giuliana limb without evidence of leak. Delayed imaging demonstrates no significant progression of contrast. Consider follow-up abdominal KUB/radiographs to assess progression as clinically warranted. IMPRESSION: No evidence of postoperative leak. [employer] Phone: Basic Metabolic PanelOrdered By: Gamaliel Harris on 01-07-2021 Anion gap [Moles/Vol] 10 mmol/L 9 - 17 mmol/L [employer] Phone: Calcium [Mass/Vol] 8.8 mg/dL 8.6 - 10. 4 mg/dL [employer] Phone: Chloride [Moles/Vol] 105 mmol/L 98 - 10 7 mmol/L [employer] Phone: CO2 [Moles/Vol] 20 mmol/L 20 - 31 mmol/L [employer] Phone: Creatinine [Mass/Vol] 0.68 mg/dL 0.50 - 0.90 mg/dL [employer] Phone: GFR >60 >60 mL/min [employer] Phone: GFR Non- >60 >60 mL/min [employer] Phone: GFR/1.73 sq M.predicted MDRD (S/P/Bld) [Vol rate/Area] [employer] Phone: Comment on above: Average GFR for 30-3 9 years old: 107 mL/min/1.73sq m Chronic Kidney Disease: <60 mL/min/1.73sq m Kidney failure: <15 mL/min/1.73sq m eGFR calculated using average adult body mass. Additional eGFR calculator available at: http://www.[employer].Nerdies/multiple_crcl_2012.htm GFR/1.73 sq M.predicted MDRD (S/P/Bld) [Vol rate/Area] NOT REPORTED [employer] Phone: Glucose [Mass/Vol] 215 mg/dL High 70 - 99 mg/dL [employer] [employer] Phone: Interpretation and review of laboratory results Abnormal [employer] Phone: Potassium [Moles/Vol] 4.2 mmol/L 3.7 - 5.3 mmol/L [employer] Phone: Sodium [Moles/Vol] 135 mmol/L 135 - 144 mmol/L [employer] Phone: Urea nitrogen (BldV) [Mass/Vol] 14 mg/dL 6 - 20 mg/dL [employer] Phone: Urea nitrogen/Creatinine (Bld) [Mass ratio] NOT REPORTED [employer] Phone: CBC without DiffOrdered By: Gamaliel Harris on 01-07-2021 Hematocrit (Bld) [Volume fraction] 38.3 % 36.3 - 47.1 % [employer] Phone: Hemoglobin.gastrointes tinal spec 1 Ql (Stl) 12.5 g/dL 11.9 - 15.1 g/dL [employer] [facility] Phone: Interpretation and review of laboratory results Abnormal [employer] Phone: MCH (RBC) [Entitic mass] 30.9 pg 25.2 - 33.5 pg [employer] Phone: MCHC (RBC) [Mass/Vol] 32.6 g/dL 28.4 - 34.8 g/dL [employer] Phone: MCV (RBC) [Entitic vol] 94.8 fL 82.6 - 102.9 fL [employer] Phone: NRBC Automated 0.0 0.0 per 100 WBC [employer] Phone: Platelet distribution width (Bld) [Ratio] 13.4 % 11.8 - 14.4 % [employer] Phone: Platelet mean volume (Bld) [Entitic vol] 11.2 fL 8.1 - 13.5 fL [employer] [facility] Phone: Platelets (Bld) [#/Vol] 373 10*3/uL [employer] [facility] Phone: RBC (Bld) [#/Vol] 4.04 10*6/uL 3.95 - 5.11 m/uL [employer] Phone: WBC (Bld) [#/Vol] 24.9 10*3/uL High [employer] [facility] Phone: POCT urine pregnancyOrdered By: Gamaliel Harris on 01-07-2021 Beta HCG ( test) Ql (U) Negative NEGATIVE [employer] Phone: Comment on above: Specimens with hCG l evels near the threshold of the test (25 mIU/mL) may give a negative or indeterminate result. In such cases, another test should be performed with a new specimen in 48-72 hours. If early is suspected clinically in this setting, correlation with quantitative serum b-hCG level is suggested. [id number] 01-04-2021 SARS-CoV-2 (COVID-19) RNA JOSÉ MIGUEL+probe Ql (Unsp spec) Normal [facility] Comment on above: Performed By: #### C OVID #### [facility] [address] [place], [place] [id number] Scribing Machine Operator: Wei Reyna MD [address] [id number] Scribing Machine Operator: Harpal Adair MD SARS-CoV-2 (COVID-19) RNA JOSÉ MIGUEL+probe Ql (Unsp spec) Not detected Normal NOTDET [facility] Comment on above: Result Comment: The specimen is NEGATIVE for SARS-CoV-2, the novel coronavirus associated with COVID-19. A negative result does not rule out COVID-19. Heide SARS-CoV-2 for use on the [employer] is a real-time RT-PCR test intended [...] this assay. Fact sheet for Healthcare Providers: https://www.fda.gov/media/910217/download Fact sheet for Patients: https://www.fda.gov/media/546544/download METHODOLOGY: RT-PCR Performed By: #### C OVID #### [facility] [place] [address] Scribing Machine Operator: Wei Reyna MD [address] [id number] Scribing Machine Operator: Harpal Adair MD [id number] 01-03-2021 SARS-CoV-2 (COVID-19) RNA JOSÉ MIGUEL+probe Ql (Unsp spec) .NASOPHARYNGEAL SWAB Normal [facility] Comment on above: Performed By: #### C OVID #### [facility] [address] [place] [id number] Scribing Machine Operator: Wei Reyna MD [address] [id number] Scribing Machine Operator: Harpal Adair MD Nicotine, BloodOrdered By: Jose Harris on 12-26-2020 9-IP-Hxuvphol <2 ng/mL [employer] Work Phone: Cotinine <2 ng/mL [employer] Work Phone: Nicotine <2 ng/mL [facility] Phone: Comment on above: (NOTE) Consistent with [...] developed and its performance characteristics determined by [employer]. It has not been cleared or approved by the US Food and Drug Administration. This test was performed in a CLIA certified laboratory and is intended for clinical purposes. Performed By: [employer] [address] [place] [id number] Director Pediatric: Brissa Bonilla MD EKG 12 LeadOrdered By: Enmanuel Harris on 12-25-2020 Atrial Rate 70 BPM [employer] [employer] Phone: P Unity 20 degrees [employer] Phone: P-R Interval 176 ms [employer] Phone: Q-T Interval 414 ms [employer] Phone: QRS Duration 88 ms [employer] Phone: QTc Calculation (Bazett) 447 ms [employer] Phone: R Unity 7 degrees [employer] Phone: T Unity 8 degrees [employer] Phone: Ventricular Rate 70 BPM [employer] Phone: Normal sinus rhythm Normal ECG No previous ECGs available [employer] Phone: Dario, Mhpn Incoming E kg Results From [employer] - 12/25/2020 12:47 PM EDT Normal sinus rhythm Normal ECG No previous ECGs available [employer] Phone: APTTOrdered By: Gamaliel horvath on 12-24-2020 aPTT Coag (Bld) [Time] 23.1 s [employer] Phone: Comment on above: IV Heparin Therapy Range: 48.6-77.8 Basic Metabolic PanelOrdered By: Gamaliel Harris on 12-24-2020 Anion gap [Moles/Vol] 10 mmol/L 9 - 17 mmol/L [employer] Phone: Calcium [Mass/Vol] 9.4 mg/dL 8.6 - 10. 4 mg/dL [employer] [employer] Phone: Chloride [Moles/Vol] 106 mmol/L 98 - 10 7 mmol/L [employer] Phone: CO2 [Moles/Vol] 23 mmol/L 20 - 31 mmol/L [employer] Phone: Creatinine [Mass/Vol] 0.56 mg/dL 0.50 - 0.90 mg/dL [employer] Phone: GFR >60 >60 mL/min [employer] Phone: GFR Non- >60 >60 mL/min [employer] Phone: GFR/1.73 sq M.predicted MDRD (S/P/Bld) [Vol rate/Area] [employer] Phone: Comment on above: Average GFR for 30-3 9 years old: 107 mL/min/1.73sq m Chronic Kidney Disease: <60 mL/min/1.73sq m Kidney failure: <15 mL/min/1.73sq m eGFR calculated using average adult body mass. Additional eGFR calculator available at: http://www.[employer].com/multiple_crcl_2012.htm GFR/1.73 sq M.predicted MDRD (S/P/Bld) [Vol rate/Area] NOT REPORTED [employer] [employer] Phone: Glucose [Mass/Vol] 86 mg/dL 70 - 99 mg/dL [employer] Phone: Potassium [Moles/Vol] 3.8 mmol/L 3.7 - 5.3 mmol/L [employer] Phone: Sodium [Moles/Vol] 139 mmol/L 135 - 144 mmol/L [employer] [employer] Phone: Urea nitrogen (BldV) [Mass/Vol] 12 mg/dL 6 - 20 mg/dL [employer] Phone: Urea nitrogen/Creatinine (Bld) [Mass ratio] NOT REPORTED [employer] Phone: CBCOrdered By: Gamaliel castillo on 12-24-2020 Hematocrit (Bld) [Volume fraction] 41.2 % 36.3 - 47.1 % [employer] Phone: Hemoglobin.gastrointes tinal spec 1 Ql (Stl) 13.4 g/dL 11.9 - 15.1 g/dL [employer] Phone: MCH (RBC) [Entitic mass] 30.5 pg 25.2 - 33.5 pg [employer] Phone: MCHC (RBC) [Mass/Vol] 32.5 g/dL 28.4 - 34.8 g/dL [employer] Phone: MCV (RBC) [Entitic vol] 93.6 fL 82.6 - 102.9 fL [employer] [facility] Phone: NRBC Automated 0.0 0.0 per 100 WBC [facility] [facility] Phone: Platelet distribution width (Bld) [Ratio] 13.2 % 11.8 - 14.4 % [employer] Phone: Platelet mean volume (Bld) [Entitic vol] 10.7 fL 8.1 - 13.5 fL [employer] Phone: Platelets (Bld) [#/Vol] 391 10*3/uL [employer] Phone: RBC (Bld) [#/Vol] 4.40 10*6/uL 3.95 - 5.11 m/uL [employer] Phone: WBC (Bld) [#/Vol] 8.5 10*3/uL [employer] Phone: Protime-INROrdered By: Enmanuel Harris on 12-24-2020 INR Coag (Bld) [Relative time] 0.9 {INR} [employer] Phone: Comment on above: Therapeutic Range: Moderate Anticoagulant Intensity: INR = 2.0-3.0 High Anticoagulant Intensity: INR = 2.5-3.5 PT Coag (PPP) [Time] 10 s [employer] Phone: XR CHEST (2 VW)on 12-24-2020 No acute cardiopulmo nary findings [employer] Phone: EXAMINATION: TWO XRA Y VIEWS OF THE CHEST 12/24/2020 11:24 am COMPARISON: None. HISTORY: ORDERING SYSTEM PROVIDED HISTORY: preop gastric bypass Giuliana [employer] TECHNOLOGIST PROVIDED HISTORY: preop gastric bypass Giuliana En Y Reason for Exam: no chest complaints FINDINGS: Normal cardiopericardial silhouette There are no significant mediastinal, pleural, parenchymal or osseous findings [employer] Phone: Dario, Mhpn Incoming Radiant Results From [employer] - 12/24/2020 11:30 AM EDT EXAMINATION: TWO XRAY VIEWS OF THE CHEST 12/24/2020 11:24 am COMPARISON: None. HISTORY: ORDERING SYSTEM PROVIDED HISTORY: preop gastric bypass Giuliana En Y TECHNOLOGIST PROVIDED HISTORY: preop gastric bypass Giuliana En Y Reason for Exam: no chest complaints FINDINGS: Normal cardiopericardial silhouette There are no significant mediastinal, pleural, parenchymal or osseous findings IMPRESSION: No acute cardiopulmonary findings [employer] Phone: XR CHEST (2 VW)Ordered By: Jose Harris on 12-24-2020 No acute cardiopulmo nary findings [employer] Phone: EXAMINATION: TWO XRA Y VIEWS OF THE CHEST 12/24/2020 11:24 am COMPARISON: None. HISTORY: ORDERING SYSTEM PROVIDED HISTORY: preop gastric bypass Giuliana En Y TECHNOLOGIST PROVIDED HISTORY: preop gastric bypass Giuliana En Y Reason for Exam: no chest complaints FINDINGS: Normal cardiopericardial silhouette There are no significant mediastinal, pleural, parenchymal or osseous findings [employer] Phone: Dario, Mhpn Incoming Radiant Results From [employer] - 12/24/2020 11:30 AM EDT EXAMINATION: TWO XRAY VIEWS OF THE CHEST 12/24/2020 11:24 am COMPARISON: None. HISTORY: ORDERING SYSTEM PROVIDED HISTORY: preop gastric bypass Giuliana En Y TECHNOLOGIST PROVIDED HISTORY: preop gastric bypass Giuliana En Y Reason for Exam: no chest complaints FINDINGS: Normal cardiopericardial silhouette There are no significant mediastinal, pleural, parenchymal or osseous findings IMPRESSION: No acute cardiopulmonary findings [facility] Phone: FL UGI W AIR CONTRASTon 10-15 Intermittent signifi cant spontaneous GE reflux. Otherwise unremarkable double-contrast upper GI and esophagram. [facility] [facility] Phone: EXAMINATION: DOUBLE CONTRAST UPPER GI SERIES [...] The duodenal bulb and sweep are normal. [employer] Phone: Dario, Mhpn Incoming Radiant Results From [employer] - 11/01/2020 5:21 PM EST EXAMINATION: DOUBLE [...] Otherwise unremarkable double-contrast upper GI and esophagram. [employer] Work Phone: COVID-19on 09-25-2020 SARS-CoV-2 [place], [place] SARS-CoV-2 Not Detected Not Detected [place], [place] Comment on above: The specimen is NEGATIVE for SARS-CoV-2, the novel coronavirus associated with COVID-19. A negative result does not rule out COVID-19. Heide SARS-CoV-2 for use on the [employer] is a real-time RT-PCR test intended [...] this assay. Fact sheet for Healthcare Providers: https://www.fda.gov/media/220931/download Fact sheet for Patients: https://www.fda.gov/media/158450/download METHODOLOGY: RT-PCR SARS-CoV-2, Rapid [place], [place] Source .NASOPHARYNGEAL SWAB [place], [place] Vital Signs Date Time Vital Sign Value Performing Clinician Facility 12-10-2023 12:35-0400 Heart rate 70 /min DO Jennie Ames Work Phone: [facility] 12-10-2023 12:35-0400 Respiratory rate 16 /min DO Jennie Ames Work Phone: [facility] 12-10-2023 12:35-0400 SaO2% (BldA) [Mass fraction] 98 % DO Jennie Hameede Work Phone: [facility] 12-10-2023 12:08-0400 Body height 170.18 cm DO Jennie Hameede Work Phone: [facility] 12-10-2023 12:08-0400 Body temperature 98 [degF] DO Jennie Ames Work Phone: [facility] 12-10-2023 12:08-0400 Body weight 89.8 kg DO Jennie Hameede Work Phone: [facility] 12-10-2023 12:08-0400 Diastolic blood pressure 76 mm[Hg] DO Jennie Hameede Work Phone: [facility] 12-10-2023 12:08-0400 Systolic blood pressure 123 mm[Hg] DO Jennie Hameede Work Phone: [facility] 09-18-2023 08:49-0500 Diastolic blood pressure 72 mm[Hg] Gamaliel Harris DO [facility] 09-18-2023 08:49-0500 Heart rate 58 /min Gamaliel Harris DO [facility] 09-18-2023 08:49-0500 Respiratory rate 18 /min Gamaliel Harris DO Work Phone: [facility] 09-18-2023 08:49-0500 SaO2% (BldA) [Mass fraction] 100 % Gamalielkemar Harris DO Work Phone: [facility] [employer] 09-18-2023 08:49-0500 Systolic blood pressure 111 mm[Hg] Gamaliel Harris DO Work Phone: [facility] [employer] 09-18-2023 08:24-0500 Body temperature 97.11 [degF] Gamaliel Harris DO Work Phone: [facility] [employer] 09-18-2023 07:23-0500 Body height 170.2 cm Gamaliel Harris DO Work Phone: [facility] [employer] 09-18-2023 07:23-0500 Body mass index (BMI) [Ratio] 31.79 kg/m2 Gamaliel Harris DO Work Phone: [facility] [employer] 09-18-2023 07:23-0500 Body weight 92.08 kg Gamaliel Harris DO [facility] 08-15-2023 13:37-0500 Diastolic blood pressure 69 mm[Hg] DO Jennie Ames Work Phone: [facility] 08-15-2023 13:37-0500 Heart rate 70 /min DO Jennie Ames Work Phone: [facility] 08-15-2023 13:37-0500 Respiratory rate 18 /min DO Jennie Ames Work Phone: [facility] 08-15-2023 13:37-0500 SaO2% (BldA) [Mass fraction] 99 % DO Jennie Ames Work Phone: [facility] 08-15-2023 13:37-0500 Systolic blood pressure 107 mm[Hg] DO Jennie Ames Work Phone: [facility] 08-15-2023 11:29-0500 Body height 170.18 cm DO Jennie Ames Work Phone: [facility] 08-15-2023 11:29-0500 Body temperature 98.2 [degF] DO Jennie Ames Work Phone: [facility] 08-15-2023 11:29-0500 Body weight 86.18 kg DO Jennie Ames Work Phone: [facility] 08-14-2023 16:43-0500 Body height 170.18 cm DO Jennie Ames Work Phone: [facility] 08-14-2023 16:43-0500 Body temperature 98.2 [degF] DO Jennie Ames Work Phone: [facility] 08-14-2023 16:43-0500 Body weight 88.6 kg DO Jennie Ames Work Phone: [facility] 08-14-2023 16:43-0500 Diastolic blood pressure 66 mm[Hg] DO Jennie Ames Work Phone: [facility] 08-14-2023 16:43-0500 Heart rate 80 /min DO Jennie Ames Work Phone: [facility] 08-14-2023 16:43-0500 Respiratory rate 18 /min DO Jennei Ames Work Phone: [facility] 08-14-2023 16:43-0500 SaO2% (BldA) [Mass fraction] 98 % DO Jennie Ames Work Phone: [facility] 08-14-2023 16:43-0500 Systolic blood pressure 118 mm[Hg] DO Jennie Ames Work Phone: [facility] 08-13-2023 11:15-0500 Body height 170.18 cm Imad Asaad Other [employer] Other 08-13-2023 11:15-0500 Body mass index (BMI) [Ratio] 30.54 kg/m2 Imad Asaad Other [employer] Other 08-13-2023 11:15-0500 Body weight 88.45 kg Imad Asaad Other [employer] Other 08-13-2023 11:15-0500 Diastolic blood pressure 84 mm[Hg] Imad Asaad Other [employer] Other 08-13-2023 11:15-0500 Systolic blood pressure 133 mm[Hg] Imad Asaad Other [employer] Other 07-08-2023 12:05-0400 Body height 170.18 cm Ania Tegan Other [employer] Other 07-08-2023 12:05-0400 Body mass index (BMI) [Ratio] 30.22 kg/m2 Ania Tegan Other [employer] Other 07-08-2023 12:05-0400 Body temperature 99 [degF] Ania Tegan Other [employer] Other 07-08-2023 12:05-0400 Body weight 87.54 kg Ania Tegan Other [employer] Other 07-08-2023 12:05-0400 Diastolic blood pressure 64 mm[Hg] Ania Tegan Other [employer] Other 07-08-2023 12:05-0400 Respiratory rate 19 /min Ania Tegan Other [employer] Other 07-08-2023 12:05-0400 SaO2% (BldA) [Mass fraction] 98 % Ania Tegan Other [employer] Other 07-08-2023 12:05-0400 Systolic blood pressure 110 mm[Hg] Ania Tegan Other [facility] Other 07-03-2023 11:05-0400 Diastolic blood pressure 80 mm[Hg] DO Jennie Ames Work Phone: [facility] 07-03-2023 11:05-0400 Heart rate 78 /min DO Jennie Ames Work Phone: [facility] 07-03-2023 11:05-0400 Respiratory rate 16 /min DO Jennie Ames Work Phone: [facility] 07-03-2023 11:05-0400 SaO2% (BldA) [Mass fraction] 99 % DO Jennie Ames Work Phone: [facility] 07-03-2023 11:05-0400 Systolic blood pressure 119 mm[Hg] DO Jennie Ames Work Phone: [facility] 07-03-2023 10:10-0400 Body height 170.18 cm DO Jennie Ames Work Phone: [facility] 07-03-2023 10:10-0400 Body temperature 98.7 [degF] DO Jennie Ames Work Phone: [facility] 07-03-2023 10:10-0400 Body weight 86.9 kg DO Jennie Ames Work Phone: [facility] 07-02-2023 14:06-0400 Body temperature 98.06 [degF] Bakari Chester [facility] 07-02-2023 14:06-0400 Diastolic blood pressure 78 mm[Hg] Bakari Chester [facility] 07-02-2023 14:06-0400 Heart rate 91 /min Bakari Chester [facility] 07-02-2023 14:06-0400 Respiratory rate 18 /min Bakari Chester [facility] 07-02-2023 14:06-0400 SaO2% (BldA) [Mass fraction] 100 % Bakari Henrik [facility] 07-02-2023 14:06-0400 Systolic blood pressure 121 mm[Hg] Bakari Henrik [facility] 01-15-2023 13:30-0400 Diastolic blood pressure 85 mm[Hg] Bakari Henrik [facility] 01-15-2023 13:30-0400 Heart rate 71 /min Bakari Henrik [facility] 01-15-2023 13:30-0400 Mean blood pressure 98 mm[Hg] Bakari Henrik [facility] 01-15-2023 13:30-0400 Respiratory rate 18 /min Bakari Henrik [facility] 01-15-2023 13:30-0400 SaO2% (BldA) [Mass fraction] 100 % Bakari Henrik [facility] 01-15-2023 13:30-0400 Systolic blood pressure 125 mm[Hg] Bakari Henrik [facility] 01-15-2023 12:30-0400 Diastolic blood pressure 99 mm[Hg] Bakari Henrik [facility] 01-15-2023 12:30-0400 Heart rate 78 /min Bakari Henrik [facility] 01-15-2023 12:30-0400 Mean blood pressure 107 mm[Hg] Bakari Henrik [facility] 01-15-2023 12:30-0400 Respiratory rate 18 /min Bakari Henrik [facility] 01-15-2023 12:30-0400 SaO2% (BldA) [Mass fraction] 100 % Bakari Chester [facility] 01-15-2023 12:30-0400 Systolic blood pressure 122 mm[Hg] Bakari Chester [facility] 01-15-2023 10:50-0400 Body temperature 98.42 [degF] Bakari Chester [facility] 01-15-2023 10:50-0400 Diastolic blood pressure 74 mm[Hg] Bakari Chester [facility] 01-15-2023 10:50-0400 Heart rate 77 /min Bakari Chester [facility] 01-15-2023 10:50-0400 Mean blood pressure 92 mm[Hg] Bakari Chester [facility] 01-15-2023 10:50-0400 Respiratory rate 17 /min Bakari Chester [facility] 01-15-2023 10:50-0400 SaO2% (BldA) [Mass fraction] 99 % Bakari Chester [facility] 01-15-2023 10:50-0400 Systolic blood pressure 129 mm[Hg] Bakari Chester [facility] 12-05-2022 13:20-0400 Diastolic blood pressure 74 mm[Hg] Gal Das [facility] 12-05-2022 13:20-0400 Heart rate 58 /min Gal Das [facility] 12-05-2022 13:20-0400 Respiratory rate 18 /min Gal Das [facility] 12-05-2022 13:20-0400 SaO2% (BldA) [Mass fraction] 100 % Gal Das [facility] 12-05-2022 13:20-0400 Systolic blood pressure 110 mm[Hg] Gal Das [facility] 12-05-2022 12:00-0400 Heart rate 54 /min Gal Das [facility] 12-05-2022 12:00-0400 SaO2% (BldA) [Mass fraction] 100 % Gal Das [facility] 12-05-2022 11:59-0400 Diastolic blood pressure 72 mm[Hg] Gal Das [facility] 12-05-2022 11:59-0400 Mean blood pressure 84 mm[Hg] Gal Das [facility] 12-05-2022 11:59-0400 Systolic blood pressure 109 mm[Hg] Gal Das [facility] 12-05-2022 11:53-0400 Body temperature 97.52 [degF] Gal Das [facility] 12-05-2022 11:53-0400 Diastolic blood pressure 73 mm[Hg] Gal Das [facility] 12-05-2022 11:53-0400 Heart rate 59 /min Gal Das [facility] 12-05-2022 11:53-0400 Mean blood pressure 87 mm[Hg] Gal Das [facility] 12-05-2022 11:53-0400 Respiratory rate 14 /min Gal Das [facility] 12-05-2022 11:53-0400 SaO2% (BldA) [Mass fraction] 100 % Gal Das [facility] 12-05-2022 11:53-0400 Systolic blood pressure 115 mm[Hg] Gal Das [facility] 12-05-2022 11:40-0400 Mean blood pressure 80 mm[Hg] Gal Das [facility] 12-05-2022 11:40-0400 Respiratory rate 18 /min Gal Das [facility] 12-05-2022 11:30-0400 Mean blood pressure 90 mm[Hg] Gal Das [facility] 12-05-2022 11:15-0400 Body temperature 97.34 [degF] Gal Das [facility] 12-05-2022 11:10-0400 Respiratory rate 18 /min Gal Das [facility] 12-05-2022 11:05-0400 Respiratory rate 21 /min Gal Das [facility] 12-05-2022 11:00-0400 Respiratory rate 11 /min Gal Das [facility] 12-05-2022 07:15-0400 Mean blood pressure 79 mm[Hg] Gal Das [facility] 12-05-2022 07:15-0400 Body temperature 97.88 [degF] Gal Das [facility] 12-05-2022 07:15-0400 Heart rate 72 /min Gal Das [facility] 12-05-2022 07:12-0400 Mean blood pressure 82 mm[Hg] Gal Das [facility] 11-21-2022 10:44-0500 Diastolic blood pressure 75 mm[Hg] Gal Das [facility] 11-21-2022 10:44-0500 Heart rate 67 /min Gal Das [facility] 11-21-2022 10:44-0500 Mean blood pressure 88 mm[Hg] Gal Das [facility] 11-21-2022 10:44-0500 Systolic blood pressure 112 mm[Hg] Gal Das [facility] 11-21-2022 10:44-0500 Heart rate 71 /min Gal Das [facility] 11-21-2022 10:44-0500 SaO2% (BldA) [Mass fraction] 100 % Gal Das [facility] 11-21-2022 10:43-0500 Diastolic blood pressure 79 mm[Hg] Gal Das [facility] 11-21-2022 10:43-0500 Mean blood pressure 91 mm[Hg] Gal Das [facility] 11-21-2022 10:43-0500 Systolic blood pressure 116 mm[Hg] Gal Das [facility] 11-21-2022 10:43-0500 Respiratory rate 16 /min Gal Das [facility] 11-20-2022 08:09-0500 Body height 170.2 cm Margo Manzano MD Work Phone: [facility] 11-20-2022 08:09-0500 Body weight 85.73 kg Margo Manzano MD Work Phone: [facility] 11-20-2022 08:09-0500 Diastolic blood pressure 81 mm[Hg] Margo Manzano MD Work Phone: [facility] 11-20-2022 08:09-0500 Heart rate 67 /min Margo Manzano MD Work Phone: [facility] 11-20-2022 08:09-0500 SaO2% (BldA) [Mass fraction] 100 % Margo Manzano MD Work Phone: [facility] 11-20-2022 08:09-0500 Systolic blood pressure 137 mm[Hg] Margo Manzano MD Work Phone: [facility] 11-03-2022 12:57-0500 Blood Pressure Location Nakia Mcqueen [facility] 11-03-2022 12:57-0500 Body temperature 98.24 [degF] Nakia Mcqueen [facility] 11-03-2022 12:57-0500 Diastolic blood pressure 80 mm[Hg] Nakia Mcqueen [facility] 11-03-2022 12:57-0500 Heart rate 85 /min Nakia Mcqueen [facility] 11-03-2022 12:57-0500 SaO2% (BldA) [Mass fraction] 98 % Nakia Mcqueen [facility] 11-03-2022 12:57-0500 Systolic blood pressure 104 mm[Hg] Nakia Mcqueen [facility] 09-24-2022 06:57-0500 Blood Pressure Location Aimee Valadezell [facility] 09-24-2022 06:57-0500 Body temperature 98.24 [degF] Aimee Walker [facility] 09-24-2022 06:57-0500 Diastolic blood pressure 64 mm[Hg] Aimee Walker [facility] 09-24-2022 06:57-0500 Heart rate 77 /min Aimee Walker [facility] 09-24-2022 06:57-0500 SaO2% (BldA) [Mass fraction] 99 % Aimee Walker [facility] 09-24-2022 06:57-0500 Systolic blood pressure 118 mm[Hg] Aimee Valadezell [facility] 08-22-2022 10:31-0500 Blood Pressure Location [facility] 08-22-2022 10:31-0500 Body temperature 98.06 [degF] [facility] 08-22-2022 10:31-0500 Diastolic blood pressure 76 mm[Hg] [facility] 08-22-2022 10:31-0500 Heart rate 95 /min [facility] 08-22-2022 10:31-0500 SaO2% (BldA) [Mass fraction] 98 % [facility] 08-22-2022 10:31-0500 Systolic blood pressure 110 mm[Hg] [facility] 08-19-2022 09:45-0500 Diastolic blood pressure 69 mm[Hg] DO Jennie Ames Work Phone: [facility] 08-19-2022 09:45-0500 Heart rate 82 /min DO Jennie Ames Work Phone: [facility] 08-19-2022 09:45-0500 Respiratory rate 16 /min DO Jennie Ames Work Phone: [facility] 08-19-2022 09:45-0500 SaO2% (BldA) [Mass fraction] 95 % DO Jennie Ames Work Phone: [facility] 08-19-2022 09:45-0500 Systolic blood pressure 104 mm[Hg] DO Jennie Ames Work Phone: [facility] 08-19-2022 07:41-0500 Body height 170.18 cm DO Jennie Ames Work Phone: [facility] 08-19-2022 07:41-0500 Body weight 83.6 kg DO Jennie Ames Work Phone: [facility] 08-18-2022 17:26-0500 Body temperature 98.06 [degF] Alexis Shukla [facility] 08-18-2022 17:26-0500 Diastolic blood pressure 83 mm[Hg] Alexis Shukla [facility] 08-18-2022 17:26-0500 Heart rate 84 /min Alexis Shukla [facility] 08-18-2022 17:26-0500 Respiratory rate 18 /min Alexis Shukla [facility] 08-18-2022 17:26-0500 SaO2% (BldA) [Mass fraction] 98 % Alexis Shukla [facility] 08-18-2022 17:26-0500 Systolic blood pressure 120 mm[Hg] Alexis Shukla [facility] 08-12-2022 15:50-0500 Body temperature 97.9 [degF] DO Jennie Ames Work Phone: [facility] 08-12-2022 15:50-0500 Diastolic blood pressure 83 mm[Hg] DO Jennie Ames Work Phone: [facility] 08-12-2022 15:50-0500 Heart rate 64 /min DO Jennie Ames Work Phone: [facility] 08-12-2022 15:50-0500 Respiratory rate 20 /min DO Jennie Ames Work Phone: [facility] 08-12-2022 15:50-0500 SaO2% (BldA) [Mass fraction] 100 % DO Jennie Ames Work Phone: [facility] 08-12-2022 15:50-0500 Systolic blood pressure 136 mm[Hg] DO Jennie Ames Work Phone: [facility] 08-12-2022 11:00-0500 Body height 170.18 cm DO Jennie Ames Work Phone: [facility] 08-12-2022 06:00-0500 Body weight 88.1 kg DO Jennie Ames Work Phone: [facility] 08-08-2022 10:30-0500 Diastolic blood pressure 76 mm[Hg] Bakari Henrik [facility] 08-08-2022 10:30-0500 Heart rate 58 /min Bakari Chester [facility] 08-08-2022 10:30-0500 Mean blood pressure 88 mm[Hg] Bakari Henrik [facility] 08-08-2022 10:30-0500 Respiratory rate 20 /min Bakari Henrik [facility] 08-08-2022 10:30-0500 SaO2% (BldA) [Mass fraction] 100 % Bakari Henrik [facility] 08-08-2022 10:30-0500 Systolic blood pressure 112 mm[Hg] Bakari Henrik [facility] 08-08-2022 10:00-0500 Diastolic blood pressure 86 mm[Hg] Bakari Henrik [facility] 08-08-2022 10:00-0500 Heart rate 64 /min Bakari Henrik [facility] 08-08-2022 10:00-0500 Mean blood pressure 97 mm[Hg] Bakari Henrik [facility] 08-08-2022 10:00-0500 Systolic blood pressure 120 mm[Hg] Bakari Chester [facility] 08-08-2022 09:13-0500 gluc 98 mg/dL Bakari Chester [facility] 08-08-2022 09:13-0500 gluc Bakari Chester [facility] 08-08-2022 09:06-0500 Body temperature 97.7 [degF] Bakari Chester [facility] 08-08-2022 09:06-0500 Diastolic blood pressure 87 mm[Hg] Bakari Chester [facility] 08-08-2022 09:06-0500 Heart rate 79 /min Bakarisamuel Chester [facility] 08-08-2022 09:06-0500 Respiratory rate 18 /min Bakari Chester [facility] 08-08-2022 09:06-0500 SaO2% (BldA) [Mass fraction] 100 % Bakari Chester [facility] 08-08-2022 09:06-0500 Systolic blood pressure 127 mm[Hg] Bakari Chester [facility] 07-21-2022 10:50-0500 Blood Pressure Location Aimee Walker [facility] 07-21-2022 10:50-0500 Body temperature 97.7 [degF] Aimee Walker [facility] 07-21-2022 10:50-0500 Diastolic blood pressure 72 mm[Hg] Aimee Walker [facility] 07-21-2022 10:50-0500 Heart rate 74 /min Aimee Valadezell [facility] 07-21-2022 10:50-0500 SaO2% (BldA) [Mass fraction] 99 % Aimee Walker [facility] 07-21-2022 10:50-0500 Systolic blood pressure 128 mm[Hg] Aimee Walker [facility] 05-13-2022 10:09-0400 Diastolic blood pressure 74 mm[Hg] Alexis Rivers [facility] General [facility] [place] 05-13-2022 10:09-0400 Heart rate 68 /min Alexis Correademond [facility] 05-13-2022 10:09-0400 Systolic blood pressure 112 mm[Hg] Alexis Correaapplerosy [facility] General [facility] 04-21-2022 09:39-0400 Blood Pressure Location Aimee Valadezell [facility] 04-21-2022 09:39-0400 Body temperature 98.24 [degF] Aimee Walker [facility] 04-21-2022 09:39-0400 Diastolic blood pressure 72 mm[Hg] Aimee Walker [facility] 04-21-2022 09:39-0400 Heart rate 94 /min Aimee Walker [facility] 04-21-2022 09:39-0400 SaO2% (BldA) [Mass fraction] 100 % Aimee Walker [facility] 04-21-2022 09:39-0400 Systolic blood pressure 112 mm[Hg] Aimee Walker [facility] 04-20-2022 14:56-0400 Body temperature 98.24 [degF] [facility] 04-20-2022 14:56-0400 Diastolic blood pressure 72 mm[Hg] [facility] 04-20-2022 14:56-0400 Heart rate 69 /min [facility] 04-20-2022 14:56-0400 Respiratory rate 18 /min [facility] 04-20-2022 14:56-0400 SaO2% (BldA) [Mass fraction] 99 % [facility] 04-20-2022 14:56-0400 Systolic blood pressure 111 mm[Hg] [facility] 04-03-2022 19:17-0400 Hourly Rounding Kaylinn Dokken [facility] 04-03-2022 19:17-0400 Promise to Return Kaylinn Dokken [facility] 04-03-2022 19:15-0400 Diastolic blood pressure 71 mm[Hg] Kaylinn Dokken [facility] 04-03-2022 19:15-0400 Heart rate 63 /min Kaylinn Dokken [facility] 04-03-2022 19:15-0400 Mean blood pressure 82 mm[Hg] Kaylinn Dokken [facility] 04-03-2022 19:15-0400 Respiratory rate 18 /min Kaylinn Dokken [facility] 04-03-2022 19:15-0400 SaO2% (BldA) [Mass fraction] 100 % Kaylinn Dokken [facility] 04-03-2022 19:15-0400 Systolic blood pressure 105 mm[Hg] Kaylinn Dokken [facility] 04-03-2022 17:09-0400 Body temperature 98.06 [degF] Kaylinn Dokken [facility] 04-03-2022 17:09-0400 Diastolic blood pressure 83 mm[Hg] Kaylinn Dokken [facility] 04-03-2022 17:09-0400 Heart rate 87 /min Kaylinn Dokken [facility] 04-03-2022 17:09-0400 Respiratory rate 18 /min Kaylinn Dokken [facility] 04-03-2022 17:09-0400 SaO2% (BldA) [Mass fraction] 99 % Kaylinn Dokken [facility] 04-03-2022 17:09-0400 Systolic blood pressure 119 mm[Hg] Kaylinn Dokken [facility] 02-06-2022 09:06-0400 Blood Pressure Location Aimee Valadezell [facility] 02-06-2022 09:06-0400 Body temperature 97.52 [degF] Aimee Walker [facility] 02-06-2022 09:06-0400 Diastolic blood pressure 72 mm[Hg] Aimee Valadezell [facility] 02-06-2022 09:06-0400 Heart rate 81 /min Aimee Walker [facility] 02-06-2022 09:06-0400 SaO2% (BldA) [Mass fraction] 100 % Aimee Walker [facility] 02-06-2022 09:06-0400 Systolic blood pressure 130 mm[Hg] Aimee Walker [facility] 01-29-2022 10:31-0400 Blood Pressure Location Aimee Walker [facility] 01-29-2022 10:31-0400 Body temperature 97.16 [degF] Aimee Walker [facility] 01-29-2022 10:31-0400 Diastolic blood pressure 76 mm[Hg] Aimee Walker [facility] 01-29-2022 10:31-0400 Heart rate 94 /min Aimee Walker [facility] 01-29-2022 10:31-0400 SaO2% (BldA) [Mass fraction] 98 % Aimee Walker [facility] 01-29-2022 10:31-0400 Systolic blood pressure 118 mm[Hg] Aimee Walker [facility] 02-01-2021 07:15-0400 Body temperature 97.7 [degF] Berry Lawson MD Work Phone: [employer] Work Phone: 02-01-2021 07:15-0400 Diastolic blood pressure 63 mm[Hg] Berry Lawson MD Work Phone: [employer] Work Phone: 02-01-2021 07:15-0400 Heart rate 82 /min Berry Lawson MD Work Phone: [employer] Work Phone: 02-01-2021 07:15-0400 Respiratory rate 18 /min Berry Lawson MD Work Phone: [employer] Work Phone: 02-01-2021 07:15-0400 SaO2% (BldA) [Mass fraction] 98 % Berry Lawson MD Work Phone: [employer] Work Phone: 02-01-2021 07:15-0400 Systolic blood pressure 110 mm[Hg] Berry Lawson MD Work Phone: [employer] Work Phone: 01-30-2021 16:54-0400 Body height 170.2 cm Berry Lawson MD Work Phone: [employer] Work Phone: 01-30-2021 16:54-0400 Body mass index (BMI) [Ratio] 38.53 kg/m2 Berry Lawson MD Work Phone: [employer] Work Phone: 01-30-2021 16:54-0400 Body weight 111.58 kg Berry Lawson MD Work Phone: [employer] Work Phone: 01-30-2021 14:27-0400 Diastolic blood pressure 66 mm[Hg] David Nash MD Work Phone: [employer] Work Phone: 01-30-2021 14:27-0400 Heart rate 93 /min David Nash MD Work Phone: [employer] Work Phone: 01-30-2021 14:27-0400 Respiratory rate 16 /min David Nash MD Work Phone: [employer] Work Phone: 01-30-2021 14:27-0400 SaO2% (BldA) [Mass fraction] 98 % David Nash MD Work Phone: [employer] Work Phone: 01-30-2021 14:27-0400 Systolic blood pressure 107 mm[Hg] David Nash MD Work Phone: [employer] Work Phone: 01-30-2021 09:51-0400 Body temperature 97.2 [degF] David Nash MD Work Phone: [employer] Work Phone: 01-26-2021 09:00-0400 Body temperature 98.2 [degF] Gamaliel Harris DO Work Phone: [employer] Work Phone: 01-26-2021 09:00-0400 Diastolic blood pressure 77 mm[Hg] Gamaliel Harris DO Work Phone: [employer] Work Phone: 01-26-2021 09:00-0400 Heart rate 90 /min Gamaliel Harris DO Work Phone: [employer] Work Phone: 01-26-2021 09:00-0400 Respiratory rate 16 /min Gamaliel Harris DO Work Phone: [employer] Work Phone: 01-26-2021 09:00-0400 SaO2% (BldA) [Mass fraction] 96 % Gamaliel Harris Level Chef Work Phone: [employer] Work Phone: 01-26-2021 09:00-0400 Systolic blood pressure 111 mm[Hg] Gamaliel Harris DO Work Phone: [employer] Work Phone: 01-08-2021 07:35-0400 Body temperature 97.81 [degF] Gamaliel Harris Level Chef Work Phone: [employer] Phone: 01-08-2021 07:35-0400 SaO2% (BldA) [Mass fraction] 97 % Gamaliel Harris Level Chef Work Phone: [employer] Work Phone: 01-08-2021 07:29-0400 Diastolic blood pressure 77 mm[Hg] Gamaliel Harris Level Chef Work Phone: [employer] Phone: 01-08-2021 07:29-0400 Heart rate 87 /min Gamaliel Harris Level Chef Work Phone: [employer] Phone: 01-08-2021 07:29-0400 Respiratory rate 18 /min Gamaliel Harris Level Chef Work Phone: [employer] Work Phone: 01-08-2021 07:29-0400 Systolic blood pressure 123 mm[Hg] Gamaliel Harris Level Chef Work Phone: [employer] Phone: 01-07-2021 06:29-0400 Body height 170.2 cm Gamaliel Harris Level Chef Work Phone: [employer] Work Phone: 01-07-2021 06:29-0400 Body mass index (BMI) [Ratio] 40.68 kg/m2 Gamaliel [employer] Phone: [employer] Phone: 01-07-2021 06:29-0400 Body weight 117.8 kg Gamaliel [employer] Phone: [employer] Phone: 12-24-2020 10:33-0400 Body height 170.2 cm [facility] 2 [employer] Phone: 12-24-2020 10:33-0400 Body mass index (BMI) [Ratio] 42.76 kg/m2 [facility] [employer] Phone: 12-24-2020 10:33-0400 Body temperature 97.7 [degF] [facility] [employer] Phone: 12-24-2020 10:33-0400 Body weight 123.83 kg [facility] [employer] Phone: 12-24-2020 10:33-0400 Diastolic blood pressure 76 mm[Hg] [facility] [employer] Phone: 12-24-2020 10:33-0400 Heart rate 71 /min [facility] [employer] Phone: 12-24-2020 10:33-0400 Respiratory rate 18 /min [facility] [employer] Phone: 12-24-2020 10:33-0400 SaO2% (BldA) [Mass fraction] 98 % [facility] [employer] Phone: 12-24-2020 10:33-0400 Systolic blood pressure 115 mm[Hg] [facility] [employer] Phone: 09-28-2020 08:40-0500 BP Diastolic 75 mm[Hg] Gamaliel [facility] [place] 09-28-2020 08:40-0500 BP Systolic 117 mm[Hg] Gamaliel Agee [facility] 09-28-2020 08:40-0500 Pulse (Heart Rate) 84 /min Gamaliel Agee [place], [place] 09-28-2020 08:40-0500 Pulse Oximetry 100 % [facility] [place] 09-28-2020 08:25-0500 Body Temperature 96.8 [degF] [facility] [place] 09-28-2020 08:25-0500 Respiratory Rate 23 /min Gamaliel Harris [facility] [place] 09-28-2020 07:07-0500 BMI (Body Mass Index) 45.66 kg/m2 Gamaliel Harris [facility] [place] 09-28-2020 07:07-0500 Body weight 132.22 kg Gamaliel Harris [facility] [place] 09-28-2020 07:07-0500 Height 170.2 cm Gamaliel Harris [facility] [place] Encounters Encounter Date Encounter Type Care Provider Facility Start: 12-10-2023 End: 12-10-2023 Emergency department patient visit Jennie Ames Facility:[facility] Start: 12-10-2023 End: 12-10-2023 Emergency department patient visit DO Jennie Ames Work Phone: [facility] Work Phone: Start: 12-09-2023 End: 12-10-2023 ambulatory Jennie Ames [place] Start: 12-09-2023 End: 12-09-2023 Patient encounter procedure Jennie Ames [facility] Start: 10-23-2023 End: 10-26-2023 [facility] Start: 10-12-2023 End: 10-15-2023 ambulatory [facility] Start: 09-18-2023 End: 09-18-2023 ambulatory JENNIE AMES [facility] Start: 09-18-2023 End: 09-18-2023 Subsequent hospital visit by physician Gamaliel Harris DO Work Phone: [facility] [place] Start: 08-31-2023 End: 09-01-2023 ambulatory SONIDO Fallon NGOC Facility:[facility] Start: 08-28-2023 End: 08-28-2023 ambulatory Imad Asaad Other [employer] Other Start: 08-28-2023 Telephone encounter Imad Asaad [facility] Start: 08-18-2023 End: 08-21-2023 ambulatory [facility] Start: 08-15-2023 End: 08-15-2023 Emergency department patient visit Yoli Norris Facility:[facility] Start: 08-15-2023 End: 08-15-2023 Emergency department patient visit DO Jennie Ames Work Phone: [facility] Work Phone: Start: 08-14-2023 End: 08-14-2023 Emergency department patient visit Jennie Ames Facility:[facility] Start: 08-14-2023 End: 08-14-2023 Emergency department patient visit DO Jennie Ames Work Phone: [facility] Work Phone: Start: 08-13-2023 End: 08-13-2023 ambulatory Imad Asaad Other [employer] Other Start: 08-13-2023 Office outpatient ne w 45 minutes Imad Asaad [facility] Start: 08-12-2023 End: 08-15-2023 ambulatory [facility]e [facility] Start: 07-30-2023 End: 07-31-2023 ambulatory MARIIFLORENCE DASILVA [facility] Start: 07-08-2023 End: 07-08-2023 ambulatory Ania Javed Other [employer] Other Start: 07-08-2023 Office outpatient ne w 20 minutes Ania Javed [facility] Start: 07-03-2023 End: 07-03-2023 Emergency department patient visit Jose Maria Blue Korey Facility:[facility] Start: 07-03-2023 End: 07-03-2023 Emergency department patient visit DO Jennie Ames Work Phone: [facility] Work Phone: Start: 07-02-2023 End: 07-02-2023 Emergency department patient visit Bakari Chester [place] [place] Start: 07-02-2023 End: 07-02-2023 Emergency department patient visit Bakari Chester [facility] Start: 06-10-2023 End: 06-10-2023 [facility] Start: 06-09-2023 End: 06-09-2023 Emergency department patient visit Alexis Shukla [place] [place] Start: 06-03-2023 Refill Margo Manzano MD Work Phone: Neurology Comment on above: Refill Request Start: 04-13-2023 ambulatory Beba Keen Facility :[facility] Start: 03-19-2023 End: 03-20-2023 ambulatory PAD TUFTER KOKI CORDERO [place] [place] Start: 03-19-2023 End: 03-19-2023 Patient encounter procedure KOKI CORDERO [facility] Start: 01-29-2023 End: 01-29-2023 ambulatory MARGO MANZANO Facility:[facility] Start: 01-15-2023 End: 01-15-2023 Emergency department patient visit Bakari Chester [place] [place] Start: 01-15-2023 End: 01-15-2023 Emergency department patient visit Bakari Chester [facility] Start: 01-02-2023 End: 01-03-2023 ambulatory ASSISTANT QUALITY MANAGER-C Nakiadestin Mcqueen Facility:[facility] Start: 01-02-2023 End: 01-02-2023 Patient encounter procedure Nakia Mcqueen [facility] Start: 12-12-2022 Refill Margo Manzano MD Work Phone: Neurology Comment on above: Refill Request Start: 12-05-2022 End: 12-05-2022 Admission to same day surgery center Gal Das [facility] Start: 11-21-2022 End: 11-21-2022 Patient encounter procedure Gal Das [facility] Start: 11-20-2022 End: 11-20-2022 ambulatory MARGO MANZANO Facility:[facility] Start: 11-20-2022 End: 11-20-2022 Patient encounter procedure Margo Manzano MD Work Phone: Neurology Comment on above: Idiopathic intracran ial hypertension (Primary Dx); Depression, unspecified depression type; Primary hypertension; Hx of gastric bypass; H/O foot surgery Start: 11-03-2022 End: 11-03-2022 Patient encounter procedure Nakia Mcqueen [facility] Start: 10-30-2022 End: 10-30-2022 ambulatory STEFANIE SINGH . Facility: Start: 10-23-2022 End: 10-23-2022 Lab Drop off Gal Das [facility] Start: 10-14-2022 End: 10-14-2022 Patient encounter procedure Rita Loja [facility] Start: 09-24-2022 End: 09-24-2022 Patient encounter procedure Aimee Walker [facility] Start: 08-22-2022 End: 08-22-2022 Patient encounter procedure Rahul Salinas [facility] Start: 08-19-2022 End: 08-19-2022 ambulatory DO Jennie Ames Work Phone: [facility] Work Phone: Start: 08-19-2022 End: 08-19-2022 Patient encounter procedure DO Jennie Ames Work Phone: [facility] Start: 08-18-2022 End: 08-18-2022 ambulatory RAMSES MARTINEZ . Facility:[facility] Start: 08-18-2022 End: 08-18-2022 Emergency department patient visit Alexis Vazquez [facility] Start: 08-16-2022 End: 08-16-[address] NEW DREW . Facility:[facility] Start: 08-12-2022 ambulatory Facility:9 [id number] Start: 08-11-2022 End: 08-12-2022 Evaluation and management of inpatient DO Jennie Ladarius Work Phone: [facility] Start: 08-11-2022 End: 08-12-2022 observation encounter DO Jennie Ames Work Phone: [facility] Work Phone: Start: 08-11-2022 End: 08-11-[address] WEI PHAM Facility:[facility] Start: 08-08-2022 End: 08-08-2022 Emergency department patient visit Bakari Chester [facility] Start: 07-21-2022 End: 07-21-2022 Patient encounter procedure Aimee Walker [facility] Start: 07-19-2022 End: 07-19-[address] DOCTOR CAMARILLO Facility:[facility] Start: 07-18-2022 Telephone encounter Eduin Mckee Plastic Surgery Comment on above: Appointment Start: 06-12-2022 End: 06-12-[address] CAROLYNE RALPH Facility:[facility] Start: 06-10-2022 End: 06-10-2022 Patient encounter procedure Alexis Rivers [facility] Start: 05-30-2022 End: 05-30-2022 ambulatory GABRIELA CAMARGO Facility:[facility] Start: 05-13-2022 End: 05-13-2022 Patient encounter procedure Alexis Rivers [facility] [place] Start: 04-22-2022 End: 04-22-2022 Patient encounter procedure Aimee Walker [facility] Start: 04-21-2022 End: 04-21-2022 Patient encounter procedure Aimee Walker [facility] Start: 04-20-2022 End: 04-20-2022 Emergency department patient visit Jose Jonathan Bren [facility] Start: 04-07-2022 End: 04-07-[address] LADY SANCHEZ . Facility:[facility] Start: 04-03-2022 End: 04-03-2022 Emergency department patient visit Larry Baker [facility] Start: 04-03-2022 End: 04-03-2022 Well adult monitoring check done Larry Lehman Doawa [facility] Start: 02-12-2022 End: 02-12-2022 Patient encounter procedure Amee Gonzalez PA-C Work Phone: Otolaryngology Comment on above: Burning tongue (Prim masoud Dx); Irritation of oral cavity Start: 02-08-2022 End: 02-08-2022 ambulatory STEFANIE SINGH . Facility:[facility] Start: 02-06-2022 End: 02-06-2022 Patient encounter procedure Aimee Walker [facility] Start: 01-30-2022 End: 01-30-2022 ambulatory GABRIELA CAMARGO Facility:[facility] Start: 01-29-2022 End: 01-29-2022 Patient encounter procedure Aimee Walker [facility] Start: 01-27-2022 ambulatory Eduin Mckee MD Work Phone: Plastic Surgery Comment on above: questions Start: 01-10-2022 Telephone encounter Eduin marx MD Work Phone: Plastic Surgery Comment on above: Patient Question; Ap pointment Start: 01-09-2022 End: 01-09-2022 Patient encounter procedure Aimee Walker [facility] Start: 12-27-2021 Telephone encounter Eduin marx MD Work Phone: Plastic Surgery Comment on above: Orders Scheduling Start: 11-16-2021 End: 11-17-[address] WILEY ZABALA Facility:[facility] Start: 02-04-2021 End: 02-06-2021 Subsequent hospital visit by physician [facility] Cat Scan Room [facility] CT Scan Comment on above: Omental infarction ( HCC) Start: 01-30-2021 End: 02-01-2021 Evaluation and management of inpatient Berry Lawson MD Work Phone: [facility] Ortho/Med Surg Comment on above: Surgery, elective (P rimary Dx); Omental infarction (HCC) Start: 01-30-2021 End: 01-30-2021 Emergency department patient visit David Nash MD Work Phone: [facility] ED Comment on above: Generalized abdomina l [...] Start: 01-03-2021 End: 01-04-2021 ambulatory [facility] Start: 01-03-2021 End: 01-03-2021 Patient encounter status Staz Schedule EDGARDO Covid Scre ening Start: 01-03-2021 End: 01-03-2021 Subsequent hospital visit by physician Edgardo Mcclendon Screening Schedule EDGARDO Covid Screening Comment on above: Preop testing (Prima ry Dx) Start: 12-24-2020 End: 12-28-2020 Subsequent hospital visit by physician Christiane Salinas [facility] Radiology Comment on above: Arrived Start: 11-01-2020 End: 11-03-2020 Subsequent hospital visit by physician Chaitanya Jett Radiologist [facility] Radiology Comment on above: Gastroesophageal ref lux disease with esophagitis without hemorrhage Start: 10-26-2020 End: 10-26-2020 Subsequent hospital visit by physician Lyle Covid Screening Schedule LYLE Covid Screening Comment on above: Preoperative testing Start: 09-28-2020 End: 09-28-2020 Subsequent hospital visit by physician Gamaliel Harris Work Phone: [facility] [place] Start: 09-24-2020 End: 09-28-2020 Subsequent hospital visit by physician Mth Covid19 Pat Screening Schedule MTHZ PRE ADMIT Comment on above: Preoperative testing Start: 11-01-2015 Patient encounter procedure BEBA COTE Facility:[facility] Procedures Date Procedure Procedure Detail Performing Clinician Start: 12-10-2023 Plain chest X-ray DO Azeb Ames Work Phone: Start: 08-15-2023 Computed tomography of abdomen and [...] Blood count complete auto&auto difrntl wbc Nicolasa I Mimi DO Work Phone: Start: 01-30-2021 End: 01-30-2021 [...] exam esop hagus single contrast study Gamaliel Gastelum Alee [employer] Work Phone: Start: 01-08-2021 Basic metabolic pane l calcium total Gamaliel Gastelum [employer] Work Phone: Start: 01-07-2021 Basic metabolic pane l calcium total Gamaliel Gastelum [employer]lee [employer] Work Phone: Start: 01-07-2021 End: 01-07-2021 Laps gstr rstcv px w/byp giuliana-en-y limb <150 cm Gamaliel Gastelum [employer]lee [employer] Work Phone: Start: 01-07-2021 Urine test visual color cmprsn meths Gamaliel Gastelum [employer]lee [employer] Work Phone: Start: 12-24-2020 Assay of nicotine Enmanuel Gastelum Alee [employer] Work Phone: Start: 12-24-2020 Basic metabolic pane l calcium total Gamaliel Gastelum Alee [place] Work Phone: Start: 12-24-2020 Radiologic exam ches t 2 views Gamaliel Gastelum Alee Work Phone: Start: 12-24-2020 Ecg routine ecg w/le ast 12 lds trcg only w/o i&r Gamaliel Gastelum Alee [employer] Work Phone: Start: 12-24-2020 EKG REPORT Hpf Scanni ng Start: 11-01-2020 Radex upper gi w/wo glucagon/delay imges w/o kub Gamaliel Tothton Work Phone: Start: 09-24-2020 COVID-19 Obdulio Jau regui Work Phone: Start: 02-16-2020 Endoscopic plantar fasciotomy Aimee Walker Start: 06-02-2019 Endoscopic plantar fasciotomy Aimee Walker Comment on above: Endoscopic plantar f asciotomy, right foot Start: 02-11-2019 LEFT ELBOW ULNAR NER VE DECOMPRESSION Aimee Walker x3 Aimee Walker Esophagogastrostomy, antesternal or antethoracic Aimee Walker ft (qualifier value) Aimee Walker Comment on above: reconstruction H/O: tubal ligation Aimee Walker Investigation of transfusion reaction DO Jennie Ames Work Phone: Lumbar puncture to l ower intracranial pressure Rahul Salinas Plan of Treatment Date Care Activity Detail Author Start: 12-25-2023 ambulatory Ambulatory Facility:[facility] Start: 12-10-2023 [facility] Start: 09-18-2023 End: 09-18-2023 Egd transoral biopsy single/multiple EGD BIOPSY Gastroesophageal reflux disease, unspecified whether esophagitis present Obesity (BMI 30-39.9) 09/18/2023 8:14 AM [facility] Start: 05-15-2023 COVID-19 Vaccine ( season) COVID-19 Vaccine ( season) [facility] Start: 05-15-2023 Influenza vaccination Influenza Vacc ine (#1) [facility] Start: 04-14-2023 Influenza vaccination Flu vaccine (# 1) [facility] Start: 08-19-2022 Cerebrospinal fluid culture [facility] Start: 08-19-2022 End: 08-19-2022 [facility] Start: 08-12-2022 [facility] Start: 08-12-2022 Glucose [Mass/volume ] in Cerebral spinal fluid [facility] Start: 08-12-2022 Protein [Mass/volume ] in Cerebral spinal fluid [facility] Start: 08-12-2022 [facility] Start: 08-11-2022 Hospital admission [facility] Start: 08-11-2022 Referral to neurologist [facility] Start: 08-11-2022 [facility] Start: 05-15-2022 Influenza vaccination [facility] Start: 09-29-2021 COVID-19 VACCINE (3 - Booster for Pfizer series) COVID-19 VACCINE (3 - Booster for Pfizer series) [facility] Start: 09-14-2021 DEPRESSION ASSESSMENT DEPRESSION ASS ESSMENT [facility] Start: 06-24-2021 COVID-19 VACCINE (3 - Booster for Pfizer series) COVID-19 VACCINE (3 - Booster for Pfizer series) [facility] Start: 06-24-2021 Covid-19 Vaccine (3 - Pfizer series) Covid-19 Vaccine (3 - Pfizer series) [facility] Start: 03-06-2021 End: 03-06-2021 Patient encounter procedure 03/06/2021 Office Visit Gamaliel Mistry DO [address] [place] [phone] [facility] Invasive Bariatric Surg Start: 02-20-2021 End: 02-20-2021 Patient encounter procedure 02/20/2021 Office Visit Gamaliel Mistry DO [address] [place] [phone] [facility] BARIATRIC Part [facility] Start: 01-18-2021 End: 01-18-2021 Office Visit 01/18/2021 Office Visit BariatricGamaliel Robledo DO [address] [place] [phone] [facility] Invasive Bariatric Surg Start: 01-07-2021 End: 01-07-2021 Hospital Encounter [facility] Comment on above: XI LAPAROSCOPIC ROBO TIC GASTRIC BYPASS GIULIANA-EN-Y, LIVER BIOPSY, EGD- GI UNIT SCHEDULED. Start: 01-03-2021 End: 01-03-2021 Office Visit Cyndie [facility] Invasive Bariatric Surg Comment on above: Arrived Start: 12-31-2020 End: 12-31-2021 COVID-19 COVID-19 Lab Routine Preop testing Expected: 12/31/2020, Expires: 12/31/2021 [facility] Work Phone: Comment on above: Expected: 12/31/2020 , Expires: 12/31/2021 Start: 11-21-2020 End: 11-21-2020 Office Visit 11/21/2020 Office Visit Bariatrics Koki Cordero, VOCATIONAL REHABILITATION COUNSELOR - [employer] [address] [place] [phone] [facility] Start: 11-01-2020 End: 11-01-2020 Appointment 11/01/2020 Appointment Radiology Radiologist, [facility] Radiology Start: 10-24-2020 End: 10-24-2020 Office Visit [facility] Start: 09-26-2020 Annual Wellness Visi t (AWV) Annual Wellness Visit (AWV) [facility] [place] Start: 2018 HPV TESTING HPV TESTING [facility] Start: 2018 Screening for malign ant neoplasm of cervix [facility] Start: 2009 PAP TESTING PAP TESTING [facility] Start: 2009 Screening for malign ant neoplasm of cervix [facility] Start: 12-18-2007 DTaP/Tdap/Td vaccine (1 - Tdap) DTaP/Tdap/Td vaccine (1 - Tdap) [facility] Start: 12-18-2007 Urine microalbumin profile [facility] Start: 2006 ANNUAL PCP TEAM REHABILITATION PHYSICIAN GURPREET DISEASE VISIT ANNUAL PCP TEAM CHRONIC DISEASE VISIT [facility] Start: 2006 BP CONTROLLED (<130/80) BP CONTROLLE D (<130/80) [facility] Start: 2006 HEPATITIS C SCREENING HEPATITIS C SC REENING [facility] Start: 2006 Hepatitis C screening Hepatitis C sc reen [facility] Start: 2006 HIV SCREENING HIV SCREENING [facility] Start: 2004 COVID-19 Vaccine (1) COVID-19 Vaccin e (1) [employer] Phone: Start: 12-18-2003 HIV screening HIV screen [facility] [employer] Start: 2000 Adult depression screening assessment DEPRESSION SCREENING [facility] Start: 2000 COVID-19 Vaccine (1) COVID-19 Vaccin e (1) [employer] Phone: Start: 2000 Depression [facility] Start: 1994 PNEUMOCOCCAL (1 - PCV) PNEUMOCOCCAL (1 - PCV) [facility] Start: 1994 Pneumococcal 0-64 ye ars Vaccine (1 - PCV) Pneumococcal 0-64 years Vaccine (1 - PCV) [facility] Start: 1994 Pneumococcal vaccination Pneumococcal Vaccine (1 - PCV) [facility] Start: 1989 Varicella vaccine (1 of 2 - 2-dose childhood series) Varicella vaccine (1 of 2 - 2-dose childhood series) [facility] Start: 1988 HEPATITIS B (1 of 3 - 3-dose series) HEPATITIS B (1 of 3 - 3-dose series) [facility] Start: 1988 Hepatitis B Vaccine (1 of 3 - 3-dose series) Hepatitis B Vaccine (1 of 3 - 3-dose series) [facility] Start: 1988 Hepatitis C screening Hepatitis C [facility] [place] Bacteria identified in Unspecified specimen by Aerobe culture [facility] Work Phone: Bacteria identified in Unspecified specimen by Anaerobe culture [facility] Work Phone: Basic Metabolic Pane l w/ Reflex to MG Basic Metabolic Panel w/ Reflex to MG Lab Routine Daily until discontinued starting 02/01/2021, 1 completed [employer] Phone: Comment on above: Daily until disconti nued starting 02/01/2021, 1 completed End: 09-18-2023 Blood glucose - POCT Blood glucose - POCT Point of Care Testing Routine One Time for 1 Occurrences starting 09/18/2023 until 09/18/2023 [employer] Comment on above: One Time for 1 Occur rences starting 09/18/2023 until 09/18/2023 Cell count, cerebrospinal fluid [facility] Work Phone: Cerebrospinal fluid examination [facility] Work Phone: Continuous pulse oximetry Pulse oximetry, continuous Respiratory Care Routine Every 4hr until discontinued starting 01/07/2021 [employer] Work Phone: Comment on above: Every 4hr until disc ontinued starting 01/07/2021 End: 10-26-2020 COVID-19 COVID-19 Lab Routine Preoperative testing 1 Occurrences starting 10/26/2020 until 10/26/2020 [employer] Work Phone: Comment on above: 1 Occurrences starti ng 10/26/2020 until 10/26/2020 COVID-19 [employer] Work Phone: End: 01-03-2021 COVID-19 COVID-19 Lab Routine Preop testing 1 Occurrences starting 01/03/2021 until 01/03/2021 [employer] Work Phone: Comment on above: 1 Occurrences starti ng 01/03/2021 until 01/03/2021 Evaluation of cerebrospinal fluid [facility] Work Phone: Fluid sample volume measurement [facility] Work Phone: Glucose [Mass/volume ] in Cerebral spinal fluid [facility] Work Phone: End: 09-18-2023 INITIATE PACU OXYGEN THERAPY PROTOCOL Initiate PACU Oxygen Therapy Protocol Respiratory Care Routine Continuous until discontinued starting 09/18/2023 [employer] Comment on above: Continuous until dis continued starting 09/18/2023 Meningitis+Encephali tis pathogens DNA and RNA panel - Cerebral spinal fluid by JOSÉ MIGUEL with non-probe detection [facility] Work Phone: Microscopic observat ion [Identifier] in Unspecified specimen by Gram stain [facility] Work Phone: End: 12-20-2023 Mra head w/o & w/contrast material MRV BRAIN WO/W IVCON Radiology Routine Idiopathic intracranial hypertension 1 Occurrences starting 11/20/2022 until 12/20/2023 [facility] Work Phone: Comment on above: 1 Occurrences starti ng 11/20/2022 until 12/20/2023 Nebulizer therapy HHN Treatment Respiratory Care Routine TID until discontinued starting 01/07/2021 [facility] Work Phone: Comment on above: TID until discontinu ed starting 01/07/2021 Nucleated cells [#/volume] in Cerebral spinal fluid by Manual count [facility] Work Phone: Oxygen therapy [Mini mum Data Set] [facility] above: Daily until disconti nued starting 09/28/2020 Daily until disconti nued starting 01/07/2021 Daily until disconti nued starting 01/31/2021 Oxygen therapy [Mini mum Data Set] Initiate Oxygen Therapy Protocol Respiratory Care Routine As Needed until discontinued starting 09/18/2023 [facility] Work Phone: Comment on above: As Needed until disc ontinued starting 09/18/2023 Patient Education [facility] Work Phone: Patient referral [facility] Work Phone: Phase I & II - meter ed glucose Phase I & II - metered glucose Point of Care Testing Routine As Needed until discontinued starting 09/28/2020 [facility] Comment on above: As Needed until disc ontinued starting 09/28/2020 End: 09-28-2020 , urine POCT , urine POCT Point of Care Testing Routine One Time for 1 Occurrences starting 09/28/2020 until 09/28/2020 [facility] Comment on above: One Time for 1 Occur rences starting 09/28/2020 until 09/28/2020 End: 09-18-2023 , urine POCT , urine POCT Point of Care Testing Routine One Time for 1 Occurrences starting 09/18/2023 until 09/18/2023 [facility] Comment on above: One Time for 1 Occur rences starting 09/18/2023 until 09/18/2023 Protein [Mass/volume ] in Cerebral spinal fluid [facility] Work Phone: Red blood cell count [facility] Work Phone: Spirometry panel Incentive pete metry Respiratory Care Routine Every 2hr while awake until discontinued starting 01/07/2021 [facility] Work Phone: Comment on above: Every 2hr while awak e until discontinued starting 01/07/2021 Surgical Pathology Surgical Path ology Lab Routine Release Upon Ordering for 1 Occurrences starting 09/28/2020 [facility] [place] [place] Comment on above: Release Upon Orderin g for 1 Occurrences starting 09/28/2020 [facility] Immunizations Immunization Date Immunization Notes Care Provider [facility] 04-29-2021 SARS-CoV-2 (COVID-19 ) mRNA BNT-162b2 vax Aimee Walker [facility] 04-08-2021 SARS-CoV-2 (COVID-19 ) mRNA BNT-162b2 vax Aimee Walker [facility] 07-23-2020 influenza virus vaccine, unspecified formulation Margo Manzano MD Work Phone: [facility] 07-09-2020 influenza virus vaccine, unspecified formulation Aimee Walker [facility] NEGATED: Highlighted row has not occurred!07-21-2022 influenza virus vaccine, unspecified formulation Aimee Walker [facility] Payers Date Payer Category Payer Medicare [id number] 2021 Medicaid MEDICAID [facility] MEDICAID [id number] 2021-Present [phone] [address] [place] [address] Medicaid [id number] 2021 Medicaid MEDICAID [facility] MEDICAID [id number] 2021-Present [phone] [address] [place] [address] Medicaid [id number] 2021 Medicare [employer] MEDICARE HUMAN MEDICARE PPO [id number] 2021-Present [phone] [address] [address] [place] [address] PPO [id number] .[id number] 2021 Medicare [id number] [id number] .[id number] 2020 Medicare [id number] 1.2.840.617654.1.13.239.2.7 .3.765044.315 1988 Unknown [id number] 2.16.840.1.555712.3.579.2.7 32 1988 Unknown [id number] 2.16.840.1.551198.3.579.2.1 77 1988 Unknown [id number] 2.16.840.1.515315.3.579.2.3 56 1988 Unknown [id number] 2.16.840.1.524789.3.579.2.5 93 1988 Unknown [id number] 2.16.840.1.142073.3.579.2.5 93 1988 Unknown [id number] 2.16.840.1.297161.3.579.2.5 93 1988 Unknown [id number] 2.16.840.1.541188.3.579.2.5 93 1988 Unknown [id number] 2.16.840.1.378694.3.579.2.5 93 1988 Unknown [id number] 2.16.840.1.109552.3.579.2.5 93 1988 Unknown [id number] 2.16.840.1.066447.3.579.2.5 93 1988 Unknown [id number] 2.16.840.1.030949.3.579.2.5 93 1988 Unknown [id number] 2.16.840.1.558627.3.579.2.5 1988 Unknown [id number] 2.16.840.1.238022.3.579.2.5 1988 Unknown [id number] 2.16.840.1.987714.3.579.2.5 93 1988 Unknown [id number] 2.16.840.1.850225.3.579.2.1 1988 Unknown [id number] 2.16.840.1.214626.3.579.2.1 1988 Unknown [id number] 2.16.840.1.027811.3.579.2.1 1988 Unknown [id number] 2.16.840.1.725912.3.579.2.1 74 1988 Unknown [id number] 2.16.840.1.592764.3.579.2.1 74 1988 Unknown [id number] 2.16.840.1.466211.3.579.2.7 27 1988 Unknown [id number] 2.16.840.1.666182.3.579.2.7 27 1988 Unknown [id number] 2.16.840.1.810600.3.579.2.7 27 1988 Unknown [id number] 2.16.840.1.289190.3.579.2.7 27 1988 Unknown [id number] 2.16.840.1.556351.3.579.2.7 27 1988 Unknown [id number] 2.16.840.1.986700.3.579.2.7 27 1988 Unknown [id number] 2.16.840.1.913131.3.579.2.7 27 1988 Unknown [id number] 2.16.840.1.525925.3.579.2.1 75 1959 Medicaid [id number] 1.2.840.412642.1.13.239.2.7 .3.046560.315 1959 Private Health Insurance [id number] 1959 Self-pay [id number] Medicare Medicare [id number] Private Health Insurance [employer] MCR PFFS M POU48ST [id number] Unknown [id number] 2.16840.1.880832.3.579.2.5 31 Unknown [id number] 2.16.840.1.913357.3.579.2.5 31 Unknown [id number] 2.16840.1.153292.3.579.2.5 31 Unknown [id number] 2.16.840.1.492324.3.579.2.5 31 Unknown [id number] 2.16840.1.962194.3.579.2.5 31 Social History Date Type Detail Facility Start: 09-28-2020 End: 01-29-2022 Tobacco smoking status NHIS Former smoker [place] Start: 08-12-2022 End: 08-15-2023 History of tobacco use Current smoker [place] Start: 09-28-2020 End: 04-24-2021 Tobacco use and exposure Never used [place] Start: 09-28-2020 End: 09-18-2023 Alcohol intake Current drinker of alcohol (finding) [place] Start: 09-28-2020 End: 07-03-2022 History SDOH Alcohol Frequency 1 [place] Start: 09-28-2020 Alcohol Comment rare [place] Start: 1990 Sex Assigned At Not on file [place] Start: 12-16-2021 End: 02-06-2022 Exposure to SARS-CoV-2 (event) Not sure [place] End: 03-14-2020 History of tobacco use Cigarette Smoker [facility] Work Phone: Start: 09-28-2020 Alcohol Comment rare [facility] [employer] Phone: Start: 04-24-2021 End: 12-26-2021 Tobacco smoking status NHIS Smokes tobacco daily [facility] Start: 12-26-2021 End: 09-18-2023 Cigarettes smoked current (pack per day) - Reported 1 [facility] Start: 03-18-2010 History SDOH Alcohol Comment beer and wine once a month [facility] Start: 07-01-2021 End: 11-03-2022 Tobacco smoking status Heavy tobacco smoker (finding) [facility] Tobacco smoking status Never [facility] Start: 07-03-2022 End: 09-18-2023 Sex Assigned At Female [facility] Start: 1990 Sex Assigned At Female [facility] Start: 07-03-2022 History SDOH Alcohol Frequency 5 [facility] Start: 07-03-2022 History SDOH Alcohol Std Drinks 4 [facility] Start: 07-03-2022 History SDOH Social Connections Get Together 2 [facility] Start: 07-03-2022 History SDOH Social Connections Living 3 [facility] Do you belong to any clubs or organizations such as mosque groups, unions, fraternal or athletic groups, or school groups? No [facility] Are you now , , , , never or living with a partner? [facility] How often to you hav e a drink containing alcohol? 4 or more times a week [facility] How many standard dr inks containing alcohol do you have on a typical day? 7 to 9 [facility] How often do you hav e 6 or more drinks on 1 occasion? Daily or almost daily [facility] How hard is it for y ou to pay for the very basics like food, housing, medical care, and heating Not very hard [facility] Do you feel stress - tense, restless, nervous, or anxious, or unable to sleep at night because your mind is troubled all the time - these days [OSQ] To some extent [facility] (I/We) worried wheyaz er (my/our) food would run out before (I/we) got money to buy more. Sometimes true [facility] The food that (I/we) bought just didn't last, and (I/we) didn't have money to get more. Never true [facility] Start: 01-13-2022 Gender identity Identifies as female gender (finding) [facility] Start: 02-06-2022 Sexual orientation Heterosexual (finding) [facility] How often to you hav e a drink containing alcohol? [facility] Start: 12-10-2023 Tobacco smoking status NHIS Never smoked tobacco (finding) [facility] Functional Status Date Assessment Result Facility 07-02-2023 Functional Status N/A [facility] 01-15-2023 Functional Status N/A [facility] 11-21-2022 Functional Status No [facility] 11-03-2022 Functional Status N/A [facility] 09-24-2022 Functional Status N/A [facility] 08-22-2022 Functional Status N/A [facility] 08-18-2022 Functional Status N/A [facility] 08-12-2022 Functional status [facility] at [facility] Work Phone: 08-08-2022 Functional Status N/A [facility] 07-21-2022 Functional Status N/A [facility] 04-21-2022 Functional Status N/A [facility] 04-20-2022 Functional Status N/A [facility] 04-03-2022 Functional Status N/A [facility] Mental Status Date Assessment Result Facility 08-12-2022 Cognitive function Cognitive Sta tus Patient at [facility] Work Phone: Clinical Notes 12-24-2020 to 09-18-2023 Discharge InstructionsCe Bustamante RN - 09/16/2023 1:25 PM EST Note [...] questions, PLEASE call your doctor or the [facility] center at documented in this encounter [facility] 09-16-2023 History of Present illness Narrative PAT phone call for /EGD completed with pt. Date/time/location (entrance C) of surgery/procedure verified with pt. NPO after [place] status verified with pt. 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 Instructed pt to take a shower the AM of surgery/procedure and to avoid lotions, creams, jewelry. Encouraged pt to avoid artificial nails and/or nailpolish. Instructed pt to take BP meds with a small sip of water prior to procedure/surgery. documented in this encounter [facility] 09-15-2023 Note HNO ID: [id number] Author: Rahul Godinez DO Service: ? Author Type: Fellow Type: Progress Notes Filed: 09/15/2023 12:00 PM Note Text: [facility] Multidisciplinary [facility] AND Upper GI Case Conference -- Consensus Note -- Conference Date: 09/15/2023 Case reviewed with physicians from GI, Surgery, AND Radiology services: -- Surgeons - Cristal Rodriguez Augustin, Naffouje, Vision[facility], and Gaurang -- Gastroenterologists - Brando Sinclair -- Radiologist - [facility] Issue(s) Question(s): 32 year old female with a history of giuliana-en-y gastric bypass in 2020 who presented to [...] alcohol cessation - Re-image in 6 months Rahul Godinez DO [facility] Surgical Fellow [facility] 08-13-2023 Evaluation note Encounter Date Diagnosis Assessment Notes Jul, Pancreatic cyst (ICD-10 - K86.2) [employer] Other 10-25-2023 Evaluation note* Encounter Date Diagnosis [...] stop smoking. Jun, Smoker (ICD-10 - F17.200) [employer] Other 09-27-2023 NoteHNO ID: [id number] Author: Margo Manzano MD Service: ? Author Type: Physician Type: Progress Notes Filed: 06/10/2023 3:39 PM Note Text: [facility] Follow Up / Established Virtual Visit I have communicated my name and active licensure. The patient's identity and physical location were verified at the time of this visit. Either the patient or their legal canvas products sales representative has been informed of the risks [...] due to congenital deformity, seen in the [facility] for: Idiopathic intracranial hypertension [...] due to congenital deformity, seen in the [facility] for: 1. Idiopathic intracranial [...] she agreed. She needs to follow with cupola liner every 6 months. In some patients with [...] her eyes. She has never seen an cupola liner. CSF protein 24, Glu 55, Pro 28, [...] cognition, memory, speech. Cr (more content not included)...[id number] Miscellaneous Notes * Telephone Encounter - Bunny Durbin RN - 06/03/2023 4:24 PM EDT Refill request routed to provider for review. * Telephone Encounter - Fabby Fam - 06/03/2023 12:43 PM EDT Physician: Dr Manzano Call from pharmacy requesting refill. Please E-Scribe Last OV: 11/20/22 with Man Future OV: none with Jose Juan Requested Prescriptions Pending Prescriptions Disp Refills acetaZOLAMIDE SR (DIAMOX SEQUELS) 500 mg capsule [Pharmacy Med Name: ACETAZOLAMIDE ER 500 MG CAP] 180 capsule 1 Sig: TAKE 1 CAPSULE BY MOUTH TWICE DAILY. START FROM 500MG DAILY, INCREASE TO TWICE A DAY IN A WEEK Pharmacy Name: [facility] Pharmacy Phone #: [phone] Fabby Cassidy [facility] Evaluation + Plan note Diagnostic Tests Pending * Zinc Level 03/19/23 * PTH Intact 03/19/23 * Vitamin A Level 03/19/23 * Vitamin B1 03/19/23 Future Scheduled Tests Laboratory* CBC w/ Auto Diff 07/21/22 Radiology* MA Mamm Screen w/CAD if perf and 3D Tanmay 04/21/22 [facility]05-18-2023 NoteHNO ID: [id number] Author: RT Raisa(R) Service: ? Author Type: Technologist Type: Progress [...] Exam(s) Completed: Head: Sagittal Sinus MRV SIGNATURE: RT Raisa(R) PATIENT NAME: Shazia Chou DATE: January 29, 2023 TIME: 1:18 [facility]05-04-2023 Hospital Discharge instructions Patient Education 01/15/2023 [...] Follow these instructions at home: Medicines Take xmtj-iov-toxvtrn and prescription medicines only as told by [...] provider. Document Revised: 11/14/2021 Document Reviewed: 11/14/2021 [employer] Patient Education 2022 testhub. Follow Up Care 01/15/2023 10:48:45 With:Jennie Ames Address: [facility] [address], [address] [place] [address]- Business (1) When:01/18/2023 13:32:37 [facility]05-04-2023 Evaluation + Plan noteExtracted from: Title:ED [...] w/CAD if perf and 3D Tanmay 04/21/22 [facility]03-31-2023 Miscellaneous Notes* Telephone Encounter - Bunny Durbin RN - 12/12/2022 3:03 PM EDT Spoke with patient and informed that per [facility] pharmacy, there are remaining refills on her Diamox Sequels. She verbalized understanding. * Telephone Encounter - Fabby Cassidy - 12/12/2022 2:32 PM EDT Physician: Dr Manzano Call from patient requesting refill. Please E-Scribe Last OV: 11/20/[address] Manzano Future OV: 7/7/[address] Manzano Requested Prescriptions Pending Prescriptions Disp Refills acetaZOLAMIDE SR (DIAMOX SEQUELS) 500 mg capsule [Pharmacy Med Name: ACETAZOLAMIDE ER 500 MG CAP] 60 capsule 5 Sig: TAKE 1 CAPSULE BY MOUTH TWICE DAILY. START FROM 500MG DAILY, INCREASE TO TWICE A DAY IN A WEEK Pharmacy Name: [facility] Pharmacy Phone #: [phone] Fabby Cassidy documented in [facility] Hospital Discharge instructions Patient Education 12/05/2022 12:15:12 Post Op Patient Instructions - ALANNA (CUSTOM) 12/05/2022 12:15:12 TELEVISION REPORTER - Post Hysterectomy/Laparotomy/Major Surgery-Thiago (CUSTOM) Instructions post [...] Up Care 11/04/2022 14:01:47 With:Gal Das Address: [facility] [address], [facility] [address] [place] [address]- [facility] (1) When:6 weeks With:Gal Das Address: [facility] [address], [facility] [address] [place] [address] [facility] (1) When:2 weeks Comments:Call for any problems. [facility]03-24-[facility] Evaluation + Plan noteExtracted from: Title:ANES Post-operative Note - General Author: Vu Maria Jr., DO Date:12/05/22 Plan Transfer/Discharge: Transfer/Discharge Discharge when meets criteria ( From PACU to Ambulatory Surgery Unit, and To home ). Extracted from: Title:ANES Pre-operative Note - Adult Author:Vu Chowdhury Jr., DO Date:12/05/22 Plan [place] [employer] Anesthesiologists (ASA) physical status classification: Class II. Anesthetic Preoperative Plan: Anesthesia General. Future Appointments Appointment Date:01/02/2023 10:00:00 AM Scheduled Provider:Nakia Shah Location:[facility] Appointment Type: Open Future Scheduled Tests Laboratory* CBC w/ Auto Diff 07/21/22 Radiology* MA Mamm Screen w/CAD if perf and 3D Tanamy 04/21/22 [facility]03-09-2023 NoteHNO ID: [id number] Author: Margo Manzano MD Service: ? Author Type: Physician Type: Progress Notes Filed: 11/20/2022 10:33 AM Note Text: [facility] New Patient Evaluation Consulting [...] due to congenital deformity, seen in the [facility] for: Idiopathic intracranial hypertension [...] her eyes. She has never seen an cupola liner. 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 Idiopathic intracranial [...] she agreed. She needs to follow with cupola liner every 6 months. In some patients with [...] --start acetazolamide (diamox 500m (more content not included)...[id number]* Patient Instructions* Margo Manzano MD - 11/20/2022 8:58 AM EST [...] up in 2-4 months documented in this [facility]Tr[facility]23 History of Present illness Narrative* Margo Manzano MD - 11/20/2022 7:57 AM EST Images from the original note were not included. [facility] New Patient Evaluation Consulting Provider: SELF Individuals who were included in, or assisted with the encounter were: Shazia Marksheila Manzano MD Chief Complaint/Issues: Shazia Chou is a 31 year old R handed female w PMH HTN, depression, recently diagnosed idiopathic intracranial hypertension, EtOH drinking, H gastric bypass surgery w 100lb weight loss, H of footsurgery due to congenital deformity, seen in the [facility] for: Idiopathic intracranial hypertension [...] her eyes. She has never seen an cupola liner. CSF protein 24, Glu 55, Pro 28, [...] Assessment & Plan 11/20/2022 - General Neurology, Margo Manzano MD ASSESSMENT Shazia Chou is a 31 year old R handed female w PMH HTN, depression, recently diagnosed idiopathic intracranial hypertension, EtOH drinking, H gastric bypass surgery w 100lb weight loss, H of footsurgery due to congenital deformity, seen in the [facility] for: 1. Idiopathic intracranial [...] she agreed. She needs to follow with cupola liner every 6 months. In some patients with intracranial hypertension, there mightbe a concurrent transverse sinus stenosis and transverse sinus stenting may resolve the symptoms. Iwgaurav do MRV. --HTN --H depression --Headache: there [...] Take 40 mg by mouth once daily. lmzxfdopqdve-nob-xoyh-FA-vit K (BARIATRIC MULTIVITAMINS) 45 mg iron- 800 [...] % Lymph% 20 15.9 - 47.3 % [place]% 6 0.0 - 12.0 % Eosin% 3 0.0 - 6.6 % Baso% 1 0.0 - 1.2 % Abs Neut (ANC) 7.64 (H) 1.45 - 7.50 k/uL Abs Lymph 2.18 1.00 - 4.00 K/uL Abs [place] 0.65 0.00 - 0.86 k/uL Abs Eosin [...] which included preparing to see the patient, bmnr-za-yzsw patient care, completing clinical documentation, obtaining and/or reviewing separately obtained history, performing a medically appropriate examination, counseling and educating the pat ient/family/caregiver, ordering medications, tests, or procedures, independently interpreting results (not separately reported), communicating results to the patient/family/caregiver, and care coordination (not separately reported). Margo Manzano MD documented in this encounterTr[facility]02-[facility]23 Hospital Discharge instructions Patient Education 11/03/2022 [...] height. This can be done either in [place] ([place] or metric measurements. Note that charts are available to help you find your BMI quickly and easily without having to do these calculations yourself. To calculate your BMI in [place] ([place].S[place] measurements, your health care provider will: [...] medical problems. BMI can be measured using [place] measurements or metric measurements. To interpret your [...] 05/12/2005 Document Revised: 08/13/2018 Document Reviewed: 07/14/2018 [employer] Patient Education 2020 testhub. 11/03/2022 13:28:26 Tobacco Use Disorder Tobacco Use [...] reduces withdrawal symptoms. NRT is available as: ?Oxuu-urz-pufkyyt gums, lozenges, and skin patches. ?Prescription mouth [...] recovery for many people. General instructions Take memk-wvh-osuqhih and prescription medicines only as told by your health care provider. Check with your health care provider before taking any new prescription or nkaj-zim-xgfjlpc medicines. Decide on a friend, family member, or smoking quit-line (such as 4-039-KUJE-NOW in the [place] that you can call [...] 05/06/2005 Document Revised: 08/18/2018 Document Reviewed: 08/18/2018 [employer] Patient Education 2020 testhub. 11/03/2022 13:28:23 Alcohol Abuse and Dependence Information, [...] find support Your health care provider. [employer]: www.smartrecovery.org Therapy and support groups Local treatment centers or chemical dependency counselors. Local AA groups in your community: www.aa.org Where to find more information Centers for Disease Control and Prevention: www.cdc.gov National [place] on Alcohol Abuse and Alcoholism: www.niaaa.nih.gov Alcoholics [...] 08/25/2017 Document Revised: 12/20/2019 Document Reviewed: 11/08/2019 [employer] Patient Education 2020 testhub. 11/03/2022 13:28:19 BMI for Adults BMI for [...] height. This can be done either in [place] ([place] or metric measurements. Note that charts are available to help you find your BMI quickly and easily without having to do these calculations yourself. To calculate your BMI in [place] ([place] measurements, your health care provider will: [...] medical problems. BMI can be measured using [place] measurements or metric measurements. To interpret your [...] 05/12/2005 Document Revised: 08/13/2018 Document Reviewed: 07/14/2018 [employer] Patient Education 2020 testhub. 10/27/2022 11:56:27 Alcohol Abuse and Dependence Information, [...] for Disease Control and Prevention: www.cdc.gov National [place] on Alcohol Abuse and Alcoholism: www.niaaa.nih.gov Alcoholics [...] 08/25/2017 Document Revised: 12/20/2019 Document Reviewed: 11/08/2019 [employer] Patient Education 2020 testhub. Follow Up Care 10/15/2022 11:28:56 With:Nakia Shah Address: [address], [facility] [place] [place] [address]- When:Within 2 Month(s) Comments:f/u smoking cessation and BP [facility] 01-11-2023 Hospital Discharge instructions [...] reduces withdrawal symptoms. NRT is available as: ?Ltpi-krs-fangndo gums, lozenges, and skin patches. ?Prescription mouth [...] recovery for many people. General instructions Take ozfg-gcv-skrlwrb and prescription medicines only as told by your health care provider. Check with your health care provider before taking any new prescription or dgnp-dax-iihzfkg medicines. Decide on a friend, family member, or smoking quit-line (such as 2-173-IQCD-NOW in the [place] that you can call [...] 05/06/2005 Document Revised: 08/18/2018 Document Reviewed: 08/18/2018 [employer] Patient Education 2020 testhub. 09/24/2022 07:23:47 BMI for Adults BMI for [...] height. This can be done either in [place] ([place] or metric measurements. Note that charts are available to help you find your BMI quickly and easily without having to do these calculations yourself. To calculate your BMI in [place] ([place] measurements, your health care provider will: [...] medical problems. BMI can be measured using [place] measurements or metric measurements. To interpret your [...] 05/12/2005 Document Revised: 08/13/2018 Document Reviewed: 07/14/2018 [employer] Patient Education 2020 [employer] 09/24/2022 07:23:45 Alcohol Use Disorder Alcohol Use [...] centers. Follow these instructions at home: Take mvww-htz-uatmvmo and prescription medicines only as told by [...] 10/08/2005 Document Revised: 08/13/2018 Document Reviewed: 05/28/2017 [employer] Patient Education 2020 testhub. 09/24/2022 07:23:42 Borderline Personality Disorder, Adult Borderline [...] with BPD should do these things: Take fbwx-eca-kacjnhw and prescription medicines only as told by [...] important. Where to find more information National [place] on Mental Illness: www.marivel.org [place] National [place] of Mental Health: www.nimh.nih.gov Contact a health [...] 12/16/2011 Document Revised: 08/13/2018 Document Reviewed: 11/05/2017 [employer] Patient Education 2020 testhub. 09/24/2022 07:23:39 Managing Bipolar Disorder Managing Bipolar [...] good-quality sleep. Too little sleep can cause rasheed to start (can trigger rasheed). Making a schedule to manage your time. [...] and can help you control feelings of rasheed. Consider going to couples counseling, family education [...] Follow these instructions at home: Medicines Take gsvi-hid-oopszea and prescription medicines only as told by your health care provider or pharmacist. Ask your pharmacist what ufyw-ogy-fguxeit cold medicines you should avoid. Some medicines [...] a problem, search for a local or [facility] mental health care center. Public mental health [...] 12/31/2017 Document Revised: 12/23/2019 Document Reviewed: 12/31/2017 [employer] Patient Education 2019 testhub. Follow Up Care 09/16/2022 13:23:11 With:Aimee Walker CNP Address: [address] [place] [phone]- [phone] When:3 months [facility] 12-09-2022 Hospital Discharge instructions Patient Education 08/22/2022 11:12:56 Tension Headache, Adult, Sdlw-wb-Beto Tension Headache, Adult A tension headache is pain, pressure, or aching in your head. Tension headaches can last from 30 minutes to several days. Follow these instructions at home: Managing pain Take zyth-rqp-tnuzegq and prescription medicines only as told by [...] 11/25/2010 Document Revised: 08/13/2018 Document Reviewed: 12/11/2017 [employer] Patient Education 2020 testhub. Follow Up Care 08/14/2022 12:38:29 With:Rita SNOWDEN, IGGY Roberson, PED Address: [address], [place] [address] When:1 month only if needed Comments:40 mins [facility] 12-05-2022 Hospital Discharge instructions [...] feet clean and dry. General instructions Take bhya-rsb-alsgmbt and prescription medicines only as told by [...] 09/26/2016 Document Revised: 06/16/2019 Document Reviewed: 06/16/2019 [employer] Patient Education 2020 testhub. 08/18/2022 19:56:48 Foot Sprain Foot Sprain A [...] fully hardened. This may takeseveral hours. Take bibt-rdt-vrdaayv and prescription medicines only as told by [...] foot. Your foot turns blue, white, or garcia, and it feels cold. Summary A foot [...] 02/20/2003 Document Revised: 09/04/2018 Document Reviewed: 09/04/2018 [employer] Patient Education 2020 testhub. 08/18/2022 19:56:48 Elastic Bandage and RICE Therapy [...] limityour activities and whether you should start lhamy-bs-tmyjkf exercises for your injury. Ice Ice your [...] 02/20/2003 Document Revised: 05/21/2018 Document Reviewed: 05/21/2018 [employer] Patient Education 2020 testhub. Follow Up Care 08/18/2022 17:21:15 With:Hilton Gillis Address: [address] [place], [place] [id number] Business (1) When:08/21/2022 19:10:21 With:Aimee Walker Address:Unknown When:Within 3 Day(s) [facility]11[facility]29[facility] Progress note Author Lizzeth Malave [facility] August 12, 2022 10:46am Note Date/Time August 12, 2022 10:45am [facility] [address] [place] [id number] Hospitalist Progress Note Signed Patient: Shazia Chou MR#: [id number] : 1990 Acct:[id number] Age/Sex: 31 / F Adm Date: 2 Loc: 4N Room: 9P4355-4 Type: ADM INOo Attending Dr: Lizzeth Malave MD Copies to: ~ Date of Service: 08/12/2022 Subjective Subjective Narrative: Shazia Chou is a 31yo F. She was transferred here last night from [facility] with worsening headache and blurry vision with [...] Tablet PO 08/11/23 21:59 4 mg QHS ACITIE Administration Duloxetine HCl 60 mg 08/11/22 22:00 08/11/22 22:45 Duloxetine 60 Mg Capsule. PO 08/11/23 21:59 60 mg QHS CAITIE Administration Hydralazine HCl 10 mg 08/11/22 21:43 Hydralazine 20 Mg/Ml Vial IV-PUSH 08/11/23 21:42 Q4H PRN Hypertension Influenza Virus Vaccine Quadrival 0.5 ml 08/13/22 09:00 Flu Vac Quad (36month+)Pf 0.5 Ml Syringe [id number] IM 08/13/22 09:01 .ONCE ONE Omeprazole 20 [...] signed by Lizzeth Malave MD> 08/12/22 1046 [facility] Work Phone: 1(309) 898-195911-29-2022 Consult note Author Kenrick Lee [facility] August 12, 2022 4:21pm Note Date/Time August 12, 2022 8:13am [facility] [address] [place] [address] Neurology Consult Note Signed Patient: Shazia Chou MR#: [id number] : 1990 Acct:[id number] Age/Sex: 31 / F Adm Date: 2 Loc: Room: [address] [place] [address] Type: ADM INOo Attending Dr: Lizzeth Malave MD Copies to: DO Jennie Wise ANP-C Ruta Semaskiene, MD~ HPI Consult Date: 08/12/22 Geophysical Support Specialist: ASTON Bro with Dr Lee Reason for consult: Headache, blurred vision Consult Narrative HPI: Patient is a 31-year-old female with medical history of bipolar, personality disorder, depression, and tobacco use in addition to 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 She has been seen in neurological consultation with request of the hospital service for headache and blurred vision. Patient initially presented to [facility] and was [facility]. She was seen in the [facility] on 08/08/2022 with similar symptoms and [...] this is when she called EMS. At [facility] she had a CT scan of the [...] extremity from prior surgery CEREBELLAR EXAM: * Nndqbz-sg-kqiv and alternating movements are intact and normal in bilateral upper extremities * Lmiu-fr-xolj and alternating movements are intact and normal [...] puncture based on these results. Evaluation at [facility]: * CT scan head is nonacute. Nonexpanded [...] once daily). Okay for discharge now from [facility]. Documented By: EDINSON Dias [id number] Signed By: <Electronically signed by EDINSON Niño> 08/12/22 0958 <Electronically signed by Kenrick Lee DO> 08/12/22 1621 [facility] Work Phone: [phone]) 518-973611-28-2022 History and physical note Author Sangeetha Peña [facility] August 11, 2022 9:43pm Note Date/Time August 11, 2022 9:08pm [facility] [address] [place] [address] Hospitalist H&P Signed Patient: Shazia Chou MR#: [id number] : 1990 Acct:[id number] Age/Sex: 31 / F Adm Date: 2 Loc: Room: [address] [place] [address] Type: ADM IN Attending Dr: Erin Barahona MD Copies to: MD Erin Mcwilliams MD~ HPI DATE OF EXAMINATION: 08/11/22 CHIEF COMPLAINT: Headache with blurry vision HISTORY OF PRESENT ILLNESS: Patient is a pleasant 31-year-old female with history of borderline personality disorder, bipolar disorder and depression. She was accepted by daytime hospitalist when contacted by [facility] physician due to concern for headache and [...] pain or dysuria. She was seenin the [facility] on 08/08 with similar symptoms. [facility]. Patient continues to [...] vision: Plan Patient has been transferred from [facility] when she presented with complaint of headache and blurry vision. During my evaluation her blood pressure is in 115 systolic and complaining of headache with blurry vision. Denies diplopia with no pain in extraocular movement. There is concern for possible idiopathic intracranial hypertension and patient has been transferred to [facility] for further management and neurology evaluation. Will [...] By: <Electronically signed by Sangeetha Peña MD> 08/11/220 [facility] Work Phone: [phone]) 636-206911-25-2022 Evaluation + Plan noteExtracted from: Title:ED Note [...] Nausea/Vomiting, # 12 tab(s), Refills(s) 0, Pharmacy: [id number], 162, cm, 08/08/22 9:11:00 EST, Height/Length Dosing, 83.1, kg, 08/08/22 9:11:00 EST, Weight Dosing Automated Diff Basic Metabolic Panel Beta hCG Qual CBC w/ Auto Diff CT Head or Brain w/o Contrast eGFR Influenza A&B Ag Rapid COVID Antigen [place] UA With Cult Reflex Future Scheduled Tests Laboratory* CBC w/ Auto Diff 07/21/22 Radiology* MA Mamm Screen w/CAD if perf and 3D Tanmay 04/21/22 [facility]11[facility] Hospital Discharge instructions Patient Education 08/08/2022 [...] health care provider to lose weight. Take xyqf-oqj-ntfpfss and prescription medicines only as told by [...] 11/09/2002 Document Revised: 08/13/2018 Document Reviewed: 07/22/2017 [employer] Patient Education [place]. Follow Up Care 08/08/2022 09:04:11 With:Kenrick Lee Address: [address] [place] [address] [facility] (1) When:08/11/2022 11:38:22 Comments:Follow-up with Dr. Lee [...] you develop any new or worsening symptoms. [facility] Evaluation + Plan note Future Scheduled Tests Laboratory* CBC w/ Auto Diff 07/21/22 Radiology* MA Mamm Screen w/CAD if perf and 3D Tan[place] 04/21/22 [facility] 11-07-2022 Evaluation + Plan note Future Scheduled Tests Laboratory* CBC w/ Auto Diff 07/21/22 [facility] Hospital Discharge instructions Patient Education 07/21/2022 [...] good-quality sleep. Too little sleep can cause rasheed to start (can trigger rasheed). Making a schedule to manage your time. [...] and can help you control feelings of rasheed. Consider going to couples counseling, family education [...] Follow these instructions at home: Medicines Take pbyr-tlu-gamkcdj and prescription medicines only as told by your health care provider or pharmacist. Ask your pharmacist what nbmo-rgi-pqkuaiw cold medicines you should avoid. Some medicines [...] a problem, search for a local or [facility] mental health care center. Public mental health [...] 12/31/2017 Document Revised: 12/23/2019 Document Reviewed: 12/31/2017 [employer] Patient Education 2020 [employer] 07/21/2022 11:21:57 Tobacco Use Disorder Tobacco [...] reduces withdrawal symptoms. NRT is available as: ?Upat-fbz-utdzxxn gums, lozenges, and skin patches. ?Prescription mouth [...] recovery for many people. General instructions Take dmqr-anh-xxyzwtj and prescription medicines only as told by your health care provider. Check with your health care provider before taking any new prescription or qxwn-frr-totuhaa medicines. Decide on a friend, family member, or smoking quit-line (such as 9-249-ASTC-NOW in the [place] that you can call [...] 05/06/2005 Document Revised: 08/18/2018 Document Reviewed: 08/18/2018 [employer] Patient Education 2020 testhub. 07/21/2022 11:21:55 BMI for Adults BMI for [...] height. This can be done either in [place] ([place] or metric measurements. Note that charts are available to help you find your BMI quickly and easily without having to do these calculations yourself. To calculate your BMI in [place] ([place] measurements, your health care provider will: [...] medical problems. BMI can be measured using [place] measurements or metric measurements. To interpret your [...] 05/12/2005 Document Revised: 08/13/2018 Document Reviewed: 07/14/2018 [employer] International Patient Education 2020 [employer] 07/21/2022 11:21:53 Leukocytosis Leukocytosis Leukocytosis means that [...] Follow these instructions at home: Medicines Take kzrf-aou-nlbkbxc and prescription medicines only as told by [...] 08/19/2012 Document Revised: 05/26/2019 Document Reviewed: 05/26/2019 [employer] Patient Education 2020 [employer] Follow Up Care 07/18/2022 10:46:12 With:Aimee Walker CNP Address: When: only if needed [facility] 11-04-2022 Miscellaneous Notes* Telephone Encounter - Cat Rojo LPN - 07/18/2022 11:04 AM EDT Call placed to patient, no answer. Left message for patient to proceed with nicotine testing prior to scheduling. Please transfer to plastic surgery nurse if patient returns call with questions. documented [facility] Evaluation + Plan note Future Scheduled Tests Radiology* MRI Breast w/o and w/ Contrast, Left 05/13/22 * MA Mamm Screen w/CAD if perf and 3D Tanmay 04/21/22 [facility] General Surgery [place] [id number] Hospital Discharge instructions Patient Education 05/13/2022 10:45:43 [...] ?Hypothyroidism. ?Polycystic ovarian syndrome (PCOS). ?Binge-eating disorder. ?Stan syndrome. Taking certain medicines, such as steroids, [...] food choices, such as grocery stores and [employer]. What are the signs or symptoms? The [...] and how much exercise you get. Take wony-azz-kfheunr and prescription medicines only as told by [...] 10/08/2005 Document Revised: 05/05/2019 Document Reviewed: 05/05/2019 [employer] Patient Education 2020 [employer]. [facility] General Surgery [place] [id number] Evaluation + Plan note Future Scheduled Tests Radiology* MA Mamm Screen w/CAD if perf and 3D Tanmay 04/21/22 [facility]08[facility]08[facility] Hospital Discharge instructions Patient Education 04/21/2022 [...] height. This can be done either in [place] ([place] or metric measurements. Note that charts are available to help you find your BMI quickly and easily without having to do these calculations yourself. To calculate your BMI in Scottish ([place] measurements, your health care provider will: [...] medical problems. BMI can be measured using Scottish measurements or metric measurements. To interpret your [...] 05/12/2005 Document Revised: 08/13/2018 Document Reviewed: 07/14/2018 [employer] Patient Education 2020 [employer]. 04/21/2022 10:14:51 Lymphadenopathy Lymphadenopathy Lymphadenopathy means that [...] at home: Get plenty of rest. Take rfrg-mhf-yqdogkl and prescription medicines only as told by your health care provider. Your health care provider may recommend xmlo-req-kcpawcz medicines for pain. If directed, apply heat [...] 06/09/2009 Document Revised: 08/13/2018 Document Reviewed: 07/16/2018 [employer] Patient Education 2020 [employer]. 04/21/2022 10:14:49 Tobacco Use Disorder Tobacco Use [...] reduces withdrawal symptoms. NRT is available as: ?Zqyh-ugy-lkejivu gums, lozenges, and skin patches. ?Prescription mouth [...] recovery for many people. General instructions Take redp-zff-ujrxovt and prescription medicines only as told by your health care provider. Check with your health care provider before taking any new prescription or pxpc-fyd-rbpuwwe medicines. Decide on a friend, family member, or smoking quit-line (such as 7-120-HAPU-NOW in the [place] that you can call [...] 05/06/2005 Document Revised: 08/18/2018 Document Reviewed: 08/18/2018 [employer] Patient Education 2020 [employer]. Follow Up Care 04/17/2022 09:51:05 With:Aimee Walker CNP Address: When: only if needed [facility] 08-07-2022 Hospital Discharge instructions [...] at home: Get plenty of rest. Take dgqg-ctx-blapogb and prescription medicines only as told by your health care provider. Your health care provider may recommend vuvb-alk-rmydara medicines for pain. If directed, apply heat [...] 06/09/2009 Document Revised: 08/13/2018 Document Reviewed: 07/16/2018 [employer] Patient Education 2020 [employer] Follow Up Care 04/20/2022 14:55:22 With:Aimee Walker Address: [facility] [address] [place] [address] [phone] Business (1) When:04/23/2022 16:08:48 Comments:Follow-up with your primary care provider in 3 to 5 days. If symptoms worsen, do not improve, or new symptoms arise please report back to emergency department for further evaluation. [facility]08[facility] Evaluation + Plan noteExtracted from: Title:ED Note Author:Dony Alegre PA-C te:04/20/22 Axillary lymphadenopathy (R5 9.0: Localized enlarged lymph nodes) Orders: naproxen, 500 mg = 1 tab(s), Oral, BID, PRN for pain, # 20 tab(s), Refills(s) 0, Pharmacy: [facility]/pharmacy #[id number], 170, cm, 04/20/22 15:01:00 EDT, Height/Length Dosing, 81.5, kg, 04/20/22 15:01:00 EDT, Weight Dosing Automated Diff Basic Metabolic Panel CBC w/ Auto Diff eGFR XR Chest 2 Views Future Appointments Appointment Date:04/21/2022 09:40:00 AM Scheduled Provider:Aimee Walker CNP Location:[facility] Appointment Type: Open [facility]07-21[facility] Hospital Discharge instructions Patient Education 04/03/2022 [...] 03/15/2012 Document Revised: 08/24/2019 Document Reviewed: 08/24/2019 [employer] Patient Education 2020 [employer]hub. Follow Up Care 04/03/2022 16:59:04 With:Aaron BONILLA Aimee R Address: [phone] When:04/06/2022 [facility]06-17-2022 Miscellaneous Notes* Telephone Encounter - Lina Chavez RN - 02/28/2022 3:[address] Mckee, patient must be 4 weeks nicotine free prior to scheduling and collection of cosmetic payment. documented in this encounterTrumbull [facility]06-01-2022 History of Present illness Narrative* Amee Gonzalez PA-C - 02/12/2022 10:38 AM EDT Images from the original note were not included. Otolaryngology Consultation/Evaluation Note Head and Neck [place] ASSESSMENT: Burning tongue (primary encounter diagnosis) Irritation [...] Take 40 mg by mouth once daily. mpojjlttzhyg-waq-uvjp-FA-vit K (BARIATRIC MULTIVITAMINS) 45 mg iron- 800 [...] and tender to palpation specifically around b/l Phelps's ducts and frenulum. Ventral aspect of tongue [...] Level: 3 - Low documented in this encounterTr[facility]05-26-[facility]22 Hospital Discharge instructions Patient Education 02/06/2022 [...] reduces withdrawal symptoms. NRT is available as: ?Ruoz-cjb-vrlgutv gums, lozenges, and skin patches. ?Prescription mouth [...] recovery for many people. General instructions Take hdax-vmb-llaukzu and prescription medicines only as told by your health care provider. Check with your health care provider before taking any new prescription or fsqg-edv-tvtsjbc medicines. Decide on a friend, family member, or smoking quit-line (such as 8-941-VOIL-NOW in the [place] that you can call [...] 05/06/2005 Document Revised: 08/18/2018 Document Reviewed: 08/18/2018 [employer] Patient Education 2020 [employer]hub. 02/06/2022 09:33:46 BMI for Adults BMI for [...] height. This can be done either in [place] ([place] or metric measurements. Note that charts are available to help you find your BMI quickly and easily without having to do these calculations yourself. To calculate your BMI in [place] ([place] measurements, your health care provider will: [...] medical problems. BMI can be measured using Scottish measurements or metric measurements. To interpret your [...] 05/12/2005 Document Revised: 08/13/2018 Document Reviewed: 07/14/2018 [employer] Patient Education 2020 [employer] Follow Up Care 02/05/2022 13:43:34 With:Aimee Walker CNP Address: When: only if needed [facility] 05-18-2022 Hospital Discharge instructions [...] height. This can be done either in [place] ([place] or metric measurements. Note that charts are available to help you find your BMI quickly and easily without having to do these calculations yourself. To calculate your BMI in [place] ([place] measurements, your health care provider will: [...] medical problems. BMI can be measured using Scottish measurements or metric measurements. To interpret your [...] 05/12/2005 Document Revised: 08/13/2018 Document Reviewed: 07/14/2018 [employer] Patient Education 2020 [employer]hub. 01/29/2022 11:02:54 Complicated Grief Complicated Grief Grief [...] friends and loved ones. General instructions Take vqjl-klm-iafvxpo and prescription medicines only as told by [...] Your local emergency services (911 in the .[place] A suicide crisis helpline, such as the [...] 08/31/2006 Document Revised: 08/13/2018 Document Reviewed: 06/16/2018 [employer] Patient Education 2020 [employer]hub. 01/29/2022 11:02:50 Alcohol Abuse and Dependence Information, [...] for Disease Control and Prevention: www.cdc.gov National [place] on Alcohol Abuse and Alcoholism: www.niaaa.nih.gov Alcoholics [...] 08/25/2017 Document Revised: 12/20/2019 Document Reviewed: 11/08/2019 [employer] Patient Education 2020 [employer]hub. 01/29/2022 11:02:46 Managing Bipolar Disorder Managing Bipolar [...] good-quality sleep. Too little sleep can cause rasheed to start (can trigger rasheed). Making a schedule to manage your time. [...] and can help you control feelings of rasheed. Consider going to couples counseling, family education [...] Follow these instructions at home: Medicines Take vijq-ggx-lqrechv and prescription medicines only as told by your health care provider or pharmacist. Ask your pharmacist what eyhv-zfp-iuqwbja cold medicines you should avoid. Some medicines [...] a problem, search for a local or [facility] mental health care center. Public mental health [...] 12/31/2017 Document Revised: 12/23/2019 Document Reviewed: 12/31/2017 [employer] Patient Education 2019 testhub. [facility] 05-02-2022 Miscellaneous Notes* Telephone [...] another consult she would. Please advise at [phone] documented in this encounterTr[facility]ull [facility]04-15-2022 Miscellaneous Notes* Telephone Encounter - Rocio [...] understood. Rocio Hester Ma documented in this encounterTrumbull [facility]05-21-2021 History of Present illness Narrative* Radha Jara - 02/01/2021 9:47 AM EDT CLINICAL PHARMACY NOTE: MEDS TO BEDS Total # of Prescriptions Filled: 2 The following medications were delivered to the patient: Percocet 5-325mg Augmentin 875-125mg Additional Documentation: delivered to patient in room 236 02/01 at 9:44am. Co- pay paid with credit on [employer] ($4.31). * Gamaliel Harris DO - 01/31/2021 [...] Advance diet Overall improvement * Yvonne Singh [facility] - 01/30/2021 9:03 PM EDT Images from [...] Singh RPH 19:00 PM documented in this encounterNeoMed Inc Phone: 1(559) 597-831505-15-2021 History of Present illness Narrative* Jasmine Burch RN - 01/26/2021 1:51 PM EDT Infusion complete, no complications, IV out and dressing applied. Encouraged patient to call with any questions. Patient left unit with steady gait to private residence. documented in this encounterReg[facility] Center[facility] Phone: 1(571) 252-925004-27-2021 History of Present illness Narrative* Radha Jara - 01/08/2021 5:59 PM EDT CLINICAL PHARMACY NOTE: MEDS TO BEDS [facility] Patient?: No Total # of Prescriptions Filled: 3 The following medications were delivered to the patient: Percocet 5-325mg Promethazine 25mg Pantoprazole 40mg Total # of Interventions Completed: 0 Time Spent (min): 0 Additional Documentation: delivered to patient in room 247 01/08 at 5:43pm. Co- pay paid with [employer] ($7.02). * Gal Atwood DO - 01/08/2021 [...] 30 y.o. female postop day 1 from Giuliana-en-Y gastric bypass procedure with hiatal hernia repair [...] obtained for OR 01-07-21 [facility] this [facility] Phone: 1(309) 836-514604-27-2021 Hospital Discharge instructions* Instructions* Gamaliel Harris DO - 01/08/2021 Discharge Instructions for Surgery You had a Giuliana-en- Y Gastric Bypass (24410) surgery to treat obesity. Recovery from this [...] scheduled appointment, please call the office at [phone]. Call Your Doctor If Any of the [...] emergency, call 911 immediately. documented in this [facility] Phone: 1(364) 441-643304-12-2021 Hospital Discharge instructions* Instructions* Jory Price APRN - [employer] - 12/24/2020 Images from the original note [...] drive you home after your procedure. Your package delivery driver must be 18 years of age [...] questions, call the Pre-Admission Testing Unit at [phone]. Day of Surgery/Procedure As a patient at [facility] you can expect quality medical and nursing care that is centered on your individual needs. Our goal is to make your surgical experience as comfortableas possible . Directions to the Surgery Center [facility] is located at [address] [place] [address]. Please pull into the Emergency parking lot and stop at the [employer] arcos. We offer free district claims manager service for all our surgery patients, if you choose not to have district claims manager parking we have additional parking across the street.You will enter the facility following the reading Surgery Cable sign. Please stop at the surveillance specialist desk where you will be checked in by the staff. If you have any questions please call [phone]. Transportation after your procedure. You will need a friend or family member to drive you home after your procedure. Your package delivery driver must be18 years of age or [...] You may shave your face or neck. Gering your teeth but do not swallow water. [...] or the day of surgery, please call [phone], or [phone] documented in this [facility] Phone: 1(825) 495-457604-12-2021 History of Present illness Narrative* Jory Price APRN - [employer] - 12/24/2020 10:30 AM EDT Anesthesia Focused [...] disorder (HCC) 11/25/[address] Chap[address] Dr. 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 Harris Obesity Patient was evaluated in PAT & anesthesia guidelines were applied. NPO guidelines, medication instructions and scheduled arrival time were reviewed with patient. Hx of anesthesia complications: No but reports extremely thirsty after Family hx of anesthesia complications: no Anesthesia contacted: no Medical or cardiac clearance ordered: PCP clearance pending, has appt this Thursday12/26/[address] Ames for this. Will request copy once available. JORY BLEVINS 12/24/20 11:38 AM documented in this [facility] Work Phone: evaluation + Plan note No data available for this section [facility] Evaluation + Plan note Referrals to Other Providers Referred by: Aimee Walker CNP [facility] Evaluation + Plan note Future Appointments Appointment Date:04/04/2022 02:40:00 PM Scheduled Provider:Rahul Salinas DO Location:[facility] Appointment Type: [facility] Future Appointments Appointment Date:04/22/2022 09:15:00 AM Scheduled [facility]: [facility] Type:MA Diagnostic (FT) Appointment Date:04/22/2022 10:00:00 AM Scheduled Provider: Location:.[facility] Appointment Type:US Breast (FT) Future Scheduled Tests Radiology* US Breast Unilateral Lt Complete 04/21/22 * US Breast Unilateral Rt Complete 04/21/22 * MA Mamm Diag w/CAD if perf and 3D Tanmay 04/22/22 * MA Mamm Screen w/CAD if perf and 3D Tanmay 04/21/22 [facility] Evaluation + Plan note Future Appointments Appointment Date:08/22/2022 10:20:00 AM Scheduled Provider:Rahul Salinas DO Location:[facility] Appointment Type: Hospital Follow Up w/TCM Future Scheduled Tests Laboratory* CBC w/ Auto Diff 07/21/22 Radiology* MA Mamm Screen w/CAD if perf and 3D Tanmay 04/21/22 [facility] Future Appointments Appointment Date:11/03/2022 01:00:00 PM Scheduled Provider:Nakia Shah Location:[facility] Appointment Type: Open Future Scheduled Tests Laboratory* CBC w/ Auto Diff 07/21/22 Radiology* MA Mamm Screen w/CAD if perf and 3D Tanmay 04/21/22 [facility] Future Appointments Appointment Date:01/02/2023 10:00:00 AM Scheduled Provider:Nakia Shah Location:[facility] Appointment Type: Open Future Scheduled Tests Laboratory* CBC w/ Auto Diff 07/21/22 Radiology* MA Mamm Screen w/CAD if perf and 3D Tanmay 04/21/22 [facility] Evaluation + Plan note Future Appointments Appointment Date:12/05/2022 09:00:00 AM Scheduled Provider: Location:[facility] Appointment Type:Surgery FT Appointment Date:01/02/2023 10:00:00 AM Scheduled Provider:Nakia Shah Location:[facility] Appointment Type: Open Future Scheduled Tests Laboratory* CBC w/ Auto Diff 07/21/22 Radiology* MA Mamm Screen w/CAD if perf and 3D Tanmay 04/21/22 [facility] Future Appointments Appointment Date:12/25/2023 10:15:00 AM Scheduled Provider:Otto Larsen MD Location[facility] Appointment Type:Cardiology New Patient (FT) [facility]Evalun[facility]* Diagnosis Preop testing- Primary Preoperative examination, unspecified documented in this encounter [employer] [employer] Phone: evaluation note* Diagnosis Post-op pain- Primary Other acute postoperative pain Status post gastric bypass for obesity Bariatric surgery status Morbid obesity with BMI of 40.0-44.9, adult (HCC) Hiatal hernia Diaphragmatic hernia without mention of obstruction or gangrene documented in this encounter [facility] Phone: evalswprpl note* Diagnosis Dehydration documented in this encounter [employer] [employer] Phone: evalhplnai note* Diagnosis Generalized abdominal pain- Primary Abdominal pain, generalized documented in this encounter [employer] Phone: evalvhdeeq note* Diagnosis Surgery, elective- Primary Unspecified elective surgery for purposes other than remedying health states Omental infarction (HCC) Acute vascular insufficiency of intestine Intra-abdominal abscess (HCC) Peritoneal abscess documented in this encounter [employer] Phone: evaluation note* Diagnosis Omental infarction (HCC) Acute vascular insufficiency of intestine documented in this encounter [employer] Phone: evaluation note* Diagnosis Hypertrophy of breast- Primary Upper back pain Excess skin [facility] encounter [facility]* Diagnosis Burning tongue- Primary Glossodynia Irritation of oral cavity Other and unspecified diseases of the oral soft tissues [facility]* Diagnosis Onset Date Resolution Status Bipolar 1 disorder acute Blurry vision acute Borderline personality disorder acute Headache acute MDD (major depressive disorder) acute Palpitation acute [facility] [email or web address] Work Phone: Evaluation note* Diagnosis Idiopathic intracranial hypertension- Primary Benign intracranial hypertension Depression, unspecified depression type Primary hypertension Unspecified essential hypertension Hx of gastric bypass Bariatric surgery status H/O foot surgery Personal history of surgery to other organs documented in this encounter [facility] HospitalEvalunemours foundation noteNo assessment information availableMarietta Osteopathic Clinic [email or web address] Work Phone: Evaluation noteNo InformationNort [employer] Other History general Narrative - Reported* Type Description Date Medical History plantar fasciitis Medical History migraine headache Medical History borderline personality disorder Medical History chronic depression Medical History bipolar Surgical History C section Surgical History c section Surgical History tubal ligation Surgical History HYSTERECTOMY Surgical History oral surgery Surgical History gastric bypass Hospitalization History mental health issues [employer] Other History general Narrative - Reported* Type Description Date Medical History plantar fasciitis Medical History migraine headache Medical History borderline personality disorder Medical History chronic depression Medical History bipolar Surgical History C section Surgical History c section Surgical History tubal ligation Surgical History HYSTERECTOMY Surgical History oral surgery Surgical History gastric bypass Hospitalization History mental health issues [place] [facility] [place] 023 [employer] [facility] [employer] Other Hospital Discharge instructions No data available for this section [facility] Progress note No data available for this section 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 ACP-Advance Directive ACP-Power of Research Leader Latest Code Status on File Code Status [...] Recorded Date/ Time Advance Directives No January 08 019 6:21pm Advance Directive Response Recorded Date/ Time Advance Directives No January 08 7:21pm Latest Code Status on File Code [...] family member Malignant neoplasm of pancreas Unknown Relationship Condition Age at Onset Recorded Date/T ankit Not Specified Malignant neoplasm of pancreas Unknown father Amyotrophic lateral sclerosis Unknown grandparent Malignant neoplasm of pancreas Unknown family member Malignant neoplasm of pancreas Unknown father Unknown Family history of mental disorder Unknown Malignant neoplasm Unknown family member Family history of other condition Unknow n Not Specified Diabetes mellitus Unknown Hypertension Unknown Unknown Heart disease Unknown History of stroke Unknown Discharge Instructions * Instructions* Yoli Hardy, [...] questions, PLEASE call your doctor or the [facility] center at documented in this encounter Reason for Referral Status Reason Specialty Diagnoses / Procedures Referre d By Contact Referred To Contact Closed Radiology Diagnoses Omental infarction (HCC) Procedures CT ABDOMEN PELVIS W IV CONTRAST Additional Contrast? Oral Gamaliel Harris DO [address] [place] [address] Specialty Diagnoses / Procedures Referred By Contac t Referred To Contact Ophthalmology Diagnoses Idiopathic intracranial hypertension Procedures CONSULT TO OPHTHALMOLOGY OFFICE/OUTPATIENT [facility] 60-74 MINUTES Margo Manzano MD [address] [address] [place] [id number] Referral ID Status Reason Start Date Expiration Date Visits Requested Visits Authorized [id number] Authorized PCP Requested Referral 11/20/2022 11/20/2023 1 1 Specialty Diagnoses / Procedures Referred By Contac t Referred To Contact MR IMAGING Diagnoses Idiopathic intracranial hypertension Procedures MRV BRAIN WO/W IVCON MRA; HEAD W & WO CONTRAST Margo Manzano MD [address] [place] [id number] Mr Imaging Referral ID Status Reason Start Date Expiration Date Visits Requested Visits Authorized [id number] Pending Review Auto-Generat ed Referral 11/20/2022 12/20/2023 [...] pressure abd pain n/v abd pain, nausea Chief Complaint lightheaded, dizzy, chest pressure Additional Source Comments INFORMATION SOURCE (unrecogn ized section and content) DATE CREATED AUTHOR 10/06/2020 [facility] DATE CREATED AUTHOR AUTHOR'S ORGANIZ ATION 01/06/2021 [facility] DATE CREATED AUTHOR AUTHOR'S ORGANIZ ATION 08/16/2022 [facility] DATE CREATED AUTHOR AUTHOR'S ORGANIZ ATION 11/15/2022 [facility] DATE CREATED AUTHOR AUTHOR'S ORGANIZ ATION 08/17/2023 [facility] DATE CREATED AUTHOR AUTHOR'S ORGANIZ ATION 09/04/2023 [facility] DATE CREATED AUTHOR AUTHOR'S ORGANIZ ATION 09/16/2023 [facility] DATE CREATED AUTHOR AUTHOR'S ORGANIZ ATION 10/26/2023 [facility] DATE CREATED AUTHOR AUTHOR'S ORGANIZ ATION 12/11/2023 [facility] DATE CREATED AUTHOR AUTHOR'S ORGANIZ ATION 12/11/[address] [facility] DATE CREATED AUTHOR AUTHOR'S ORGANIZ ATION 2023 [facility] Reason for Visit (unrecogniz ed section and content) Status Reason Specialty Diagnoses / Procedures Re ferred By Contact Referred To Contact Diagnoses GERD (gastroesophageal reflux disease) GERD/OBESITY Procedures FL ESOPHAGOGASTRODUODENOSCOPY TRANSORAL DIAGNOSTIC EGD ESOPHAGOGASTRODUODENOSCOPY Gamaliel Harris DO [address] [place] [address] [facility] [employer] Status Reason Specialty Diagnoses / Procedures Referre d By Contact Referred To Contact Closed Radiology Diagnoses Gastro-esophageal reflux disease with esophagitis, without bleeding Procedures CHG RADIOLOGIC EXAM UPR GI TRC SINGLE CONTRAST STUDY Gamaliel Harris DO [address] [place] [address] [facility] Radiology [address] [place] [address] Status Reason Specialty Diagnoses / Procedures Referre d By Contact Referred To Contact Diagnoses Morbid obesity (HCC) GERD (gastroesophageal reflux disease) MORBID OBESITY, GERD Procedures FL LAP GASTRIC BYPASS/GIULIANA-EN-Y XI LAPAROSCOPIC ROBOTIC GASTRIC BYPASS GIULIANA-EN-Y, LIVER BIOPSY, EGD- GI UNIT SCHEDULED. Gamaliel Harris DO [address] [place] [address] [facility] [employer] Reason Comments Abdominal Pain Diffuse cramping and bloating. Onset 2 days ago. Pt reports she is 3.5weeks post Gastric bypass. Last BM this AM Reason Comments Abdominal Pain possible abscess Status Reason Specialty Diagnoses / Procedures Referre d By Contact Referred To Contact Diagnoses Intra-abdominal abscess (HCC) Omental infarction (HCC) Gamaliel Harris DO [address] [place] [address] [facility] Status Reason Specialty Diagnoses / Procedures Referre d By Contact Referred To Contact Closed Radiology Diagnoses Omental infarction (HCC) Procedures CT ABDOMEN PELVIS W IV CONTRAST Additional Contrast? Oral Gamaliel Harris DO [address] [place] [address] Reason Comments Orders Reason Comments Patient Question [...] present [K21.9] Obesity (BMI 30-39.9) [E66.9] Procedures FL EGD TRANSORAL BIOPSY SINGLE/MULTIPLE FL ESOPHAGOGASTRODUODENOSCOPY TRANSORAL DIAGNOSTIC FL EGD BALLOON DILATION ESOPHAGUS <30 MM DIAM EGD BIOPSY Gamaliel Harris DO [address] [facility] [address] [place] [address] [facility] [address] [place] [address] Referral ID Status Reason Start Date Expiration Date Visits Re quested Visits Authorized [id number] 1 1 Ordered Prescriptions (unrec ognized section [...] Yanelis Martínez RN) Continuous Medication Order 01/28/2021 01/29/2021 01/30/2021 0.9 % sodium chloride infusion 1,000 mL, Intravenous, at 125 mL/hr, Administer over 8 Hours, CONTINUOUS, Starting on Thu01/30/21 at 1015 1043 (New Bag - Prov ider: Judy Reeder RN)1515 (Patient Transferred to Other Facility - Provider: Judy Reeder, MARCO) PRN Medication Order 01/28/2021 01/29/2021 01/30/2021 iopamidol (ISOVUE-370) 76 % injection 18 mL (COMPLETED) 18 mL, Other, IMG ONCE PRN, Other, Starting on Thu01/30/21 at 1137, For 1 dose 1142 (Given - Provid er: [facility]) iopamidol (ISOVUE-370) 76 % injection 75 mL (COMPLETED) 75 mL, Intravenous, IMG ONCE PRN, Other, Starting on Thu01/30/21 at 1137, For 1 dose 1142 (Given - Provid er: [facility]) Scheduled Medication Order 01/30/2021 01/31/2021 02/01/2021 0.9 % sodium chloride bolus (COMPLETED) 1,000 mL (8.96 mL/kg), Intravenous, at 1,000 mL/hr, Administer over 1 Hours, ONCE, On Thu01/30/21 at 1715, For 1 dose 1708 (New Bag - Provider: Annita Guevara, RN)1901 (Stopped - Provider: Annita Guevara RN) enoxaparin (LOVENOX) injection 40 mg 40 mg, Subcutaneous, EVERY 12 HOURS SCHEDULED (2 times per day), First dose on Thu01/30/21 at 2200 2315 (Held - Provider: Heather Palacios, RN - Reason: Patient/family refused) 0938 (Given - Provider: Wei Carter, RN)2100 (Due) 0831 (Given - Provider: Bonnie Ruiz RN)2100 (Due) fentaNYL (SUBLIMAZE) injection 50 mcg (COMPLETED) 50 mcg, Intravenous, ONCE, On Thu01/30/21 at 1715, For 1 dose, If oral and IV narcotics ordered, use oral first and only use IV if oral is ineffective or cannot take oral. Do Not give oral and IV within 1 hour of each other unless specifically ordered. 1707 (Given - Provider: Annita Guevara, MARCO) fentaNYL (SUBLIMAZE) injection 50 mcg (COMPLETED) 50 [...] Mane RN) 0336 (Stopped - Provider: Heather Palacios, RN)0635 (New Bag - Provider: Heather Palacios, RN)0940 (Stopped - Provider: Wei Carter, RN)1257 (New Bag - Provider: Wei Carter, RN)1632 (Stopped - Provider: Wei Carter, RN)2032 (New Bag - Provider: Rita Klein RN) 0030 (Stopped - Provider: Rita Klein RN)0559 (New Bag - Provider: Rita Klein RN)0959 (Due: Stopped - Provider: Rita Klein RN)1315 (Due)2114 (Due) sodium chloride flush 0.9 % injection [...] 24 hours. 2251 (Given - Provider: Jacob Mane, RN) 0451 (Given - Provider: Heather Palacios, RN)0939 (Given - Provider: Wei Carter, RN)1424 (Given - Provider: Wei Carter, RN)1921 (Given - Provider: Rita Klein, RN) 0404 (Given - Provider: Rita Klein, RN)0832 (Given - Provider: Bonnie Ruiz RN) promethazine (PHENERGAN) injection 12.5 mg 12.5 mg, Intravenous, EVERY 6 HOURS PRN, Nausea, Vomiting, Starting on 01/30/21 at 2157, Recommended route is IM. For [...] 20 mL/lumen, Pre-op (day of surgery) 0900 (Due)2100 (Due) sodium chloride flush 0.9 % injection [...] Line = 20 mL/lumen, PACU only 0900 (Due)2100 (Due) Continuous Medication Order 09/16/2023 09/17/2023 09/18/2023 lactated ringers IV soln infusion IntraVENous, at 125 mL/hr, CONTINUOUS, Starting on Thu09/18/23 at 0745, Pre-op (day of surgery) 0736 (New Bag - Prov ider: CEDRIC Hood CRNA)0814 (NoRateChange - Provider: CEDRIC Hood CRNA)0823 (Anesthesia [...] or prosecute any alcohol or drug abuse patient.[facility] the event this information is protected by the Federal Confidentiality of Alcohol and Drug Abuse Patient Records regulations: The Federal rules restrict any use of the information to criminally investigate or prosecute any alcohol or drug abuse patient.[facility] the event this information is protected by the Federal Confidentiality of Alcohol and Drug Abuse Patient Records regulations: The Federal rules restrict any use of the information to criminally investigate or prosecute any alcohol or drug abuse patient.[facility] the event this information is protected by the Federal Confidentiality of Alcohol and Drug Abuse Patient Records regulations: The Federal rules restrict any use of the information to criminally investigate or prosecute any alcohol or drug abuse patient.[facility] the event this information is protected by the Federal Confidentiality of Alcohol and Drug Abuse Patient Records regulations: The Federal rules restrict any use of the information to criminally investigate or prosecute any alcohol or drug abuse patient.[facility] the event this information is protected by the Federal Confidentiality of Alcohol and Drug Abuse Patient Records regulations: The Federal rules restrict any use of the information to criminally investigate or prosecute any alcohol or drug abuse patient.[facility] the event this information is protected by the Federal Confidentiality of Alcohol and Drug Abuse Patient Records regulations: The Federal rules restrict any use of the information to criminally investigate or prosecute any alcohol or drug abuse patient.[facility] [place] [facility] the event this information is protected by the Federal Confidentiality of Alcohol and Drug Abuse Patient Records regulations: The Federal rules restrict any use of the information to criminally investigate or prosecute any alcohol or drug abuse patient.[facility] Hospital[facility] the event this information is protected by the Federal Confidentiality of Alcohol and Drug Abuse Patient Records regulations: The Federal rules restrict any use of the information to criminally investigate or prosecute any alcohol or drug abuse patient.[facility] Care Team (unrecognized sect ion and content) Team Status: Inactive Member Role Status Dates Jennie Ames , DO Primary Care Provider Active Sangeetha Peña MD Admit Provider Active Beba Hdz Other Provider Active Krystal Romo , DO Other Provider Active Carolyne Schilling MD Other Provider Active Jamie Larsen , DO Other Provider Active Dorita Niño ANP-BC Other Provider Active Kenrick Lee , Other Provider Active Shasta Zaragoza APRN Other Provider Active ASTON Marvin Other Provider Active Lizzeth Malave MD Attending Provider Active Team Status: Active Member Role Status Dates Jennie Ames , DO Primary Care Provider Active Team Status: Inactive Member Role Status Dates Jennie Ames , DO Primary Care Provider Active Sangeetha Peña MD Admit Provider Active Beba Hdz Other Provider Active Krystal Romo , DO Other Provider Active Carolyne Schilling MD Other Provider Active Jamie Larsen , DO Referring Provider, Other Pr ovider Active Dorita Windnagel , ANP-BC Other Provider Active Kenrick Lee , DO Other Provider Active Shasta Zaragoza , VOCATIONAL REHABILITATION COUNSELOR Other Provider Active Danielle Smith , PAD TUFTER-C Other Provider Active Lizzeth Malave MD Attending Provider Active Team Status: Inactive Member Role Status Dates Jennie Ames , DO Primary Care Provider Active Dorita Niño , DIANNE-BC Attending Provider Active Team Status: Inactive Member Role Status Dates Jennie Ames , DO Primary Care Provider Active Jose Maria Nair , DO Emergency Provider Active Team Status: Inactive Member Role Status Dates Jennie Ames , DO Primary Care Provider Active Yoli Norris MD Emergency Provider Active Document Imaging Specialist Relationship Specialty Start Date End Date Jennie Ames, DO [address] [place] [place] [id number] PCP - General Family Medicine 11/19/22 Team Status: Inactive Member Role Status Dates Jennie Ames , DO Primary Care Provider Active S tart: December 10, 2023 End: December 10, 2023 Marii Christiansen MD Emergency Provider Active Start: December 10, 2023 End: December 10, 2023 Goals (unrecognized section and content) Goals may [...] BE BASED ON THE PRIMARY CLINICAL RECORDS. [facility] [employer] provides no warranty or guarantee of the accuracy or completeness of information in this document.
--- NOTE | 2023-12-19 11:24 | ED_ITS ---
HPI - Anxiety General Chief Complaint: Anxiety Stated Complaint: WEAK Time Seen by Provider: 12/19/23 11:10 Source: patient Mode of arrival: walk-in Limitations: no limitations History of Present Illness HPI narrative: This patient is here for evaluation of tingling and numbness in both her arms and legs. She was at home doing laundry today when her symptoms started. She is under the care of a psychiatrist in [facility] and they recently increased her anxiety medication. She is extremely stressed, she just celebrated her birthday but she was alone. She has had at least 3 or 4 deaths of very close family members recently and she says she is just very saddened. She wants to feel better with this anxiety. She did not have any recent influenza type symptoms. She is under the care of a number of physicians, she is scheduled to see a tree fruit and nut crops farmer is in approximately 1 week. She is on semaglutide for weight loss. She is status post gastric bypass surgery. She was referred to the tree fruit and nut crops farmer because she was having some rapid heartbeats. She did not really experience that today. She does not have any fever or myalgias or influenza type symptoms. Related Data Home Medications ?Medication ?Instructions ?Recorded ?Confirmed cholecalciferol (vitamin D3) 125 5,000 unit PO .COMPLEX 06/10/23 12/19/23 mcg (5,000 unit) capsule duloxetine 60 mg capsule,delayed 60 mg PO BID 06/10/23 12/19/23 release acetazolamide 250 mg tablet 250 mg PO Q12H 07/10/23 10/14/23 brexpiprazole 4 mg tablet (Rexulti) 4 mg PO DAILY 07/10/23 12/19/23 buspirone 5 mg tablet 5 mg PO BID 10/14/23 10/14/23 trazodone 100 mg tablet 50 mg PO BEDTIME 10/14/23 12/19/23 semaglutide 0.25 mg or 0.5 mg (2 0.5 mg subcut QWEEK 12/19/23 12/19/23 mg/3 mL) subcutaneous pen injector Previous Rx's ?Medication ?Instructions ?Recorded ondansetron 4 mg disintegrating 4 mg PO Q6H PRN nausea/vomiting 08/14/23 tablet #20 tabs meclizine 25 mg tablet 25 mg PO TID PRN dizziness #20 tabs 10/14/23 Allergies Allergy/AdvReac Type Severity Reaction Status Date / Time aripiprazole [From Abilify] Allergy Unknown Verified 07/10/23 10:33 COCONUT Allergy Uncoded 10/07/23 15:43 PFSH PFSH Social History Smoking status: Current every day smoker Exam Narrative Exam Narrative: Awake pleasant good historian but very anxious. Overall she does not appear ill or toxic and her vital signs are stable. Her skin is warm and dry mucous membranes are moist and pink GCS is 15 there is no evidence of confusion. Her lungs were clear bilaterally there is no respiratory distress there is no pleural or pericardial rub. There is no wheeze rales rhonchi or coughing. Heart sounds normal with no murmur. She has no abdominal discomfort. Extremities do not have evidence of phlebitis or DVT. Neurological examination shows no lateralizing or focal neurological findings. Constitutional Vital Signs, click to edit/add: Last Vital Signs Temp 98.3 F 12/19/23 10:27 Pulse 80 12/19/23 10:27 Resp 20 12/19/23 10:27 BP 128/91 12/19/23 10:27 Pulse Ox 100 12/19/23 10:27 Course Vital Signs Vital signs: Vital Signs Temperature 98.3 F 12/19/23 10:27 Pulse Rate 80 12/19/23 10:27 Respiratory Rate 20 12/19/23 10:27 Blood Pressure 128/91 12/19/23 10:27 Pulse Oximetry 100 12/19/23 10:27 Temperature 98.3 F 12/19/23 10:27 Pulse Rate 80 12/19/23 10:27 Respiratory Rate 20 12/19/23 10:27 Blood Pressure 128/91 12/19/23 10:27 Pulse Oximetry 100 12/19/23 10:27 MDM - Anxiety MDM Narrative Medical decision making narrative: Patient presents with diffuse symptomatology including hyperventilation symptomatology with tingling in all 4 extremities that is now resolved. She has a great deal of issues on her mind with recent losses and her doctors are seeing her at a psychiatric facility. I do not believe she is suicidal or homicidal. She has a fear of because so many members of her family have cancer. Her physicians have ordered cancer screening in addition she is getting CTs and MRIs of her pancreas and that is being followed by the clinician in the [place] area. They do not feel she has any malignancies and they have reassured her. Her laboratory testing here did not disclose any obvious emergency medical condition I believe she is fine to follow-up with continuation of her current clinicians recommendations Discharge Plan Discharge Stand Alone Forms: Portal Instructions Chief Complaint: Anxiety Clinical Impression: Anxiety Patient Disposition: Home, Self-Care Time of Disposition Decision: 13:46 Prescriptions / Home Meds: No Action cholecalciferol (vitamin D3) 125 mcg (5,000 unit) capsule 5,000 unit PO .COMPLEX Rx Instructions: 5,000 units orally weekly; duloxetine 60 mg capsule,delayed release(DR/EC) 60 mg PO BID acetazolamide 250 mg tablet 250 mg PO Q12H Rexulti 4 mg tablet 4 mg PO DAILY semaglutide 0.25 mg or 0.5 mg (2 mg/3 mL) pen injector 0.5 mg subcut QWEEK Rx Instructions: for 4 weeks ondansetron 4 mg tablet,disintegrating 4 mg PO Q6H PRN (Reason: nausea/vomiting) Qty: 20 0RF buspirone 5 mg tablet 5 mg PO BID trazodone 100 mg tablet 50 mg PO BEDTIME meclizine 25 mg tablet 25 mg PO TID PRN (Reason: dizziness) Qty: 20 0RF Print Language: Belarusian Additional Instructions: Continue present meds. Referrals: KAYLEE AMES [Primary Care Provider] - 1 week
--- NOTE | 2023-12-19 11:27 | ECG_ITS ---
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
[2023-12-19] MEDS: 0.9 % SODIUM CHLORIDE 1,000 ML 999 ML IV (12:17)
[2023-12-19] MEDS: LORAZEPAM 2 MG/ML VIAL 1 MG IV (12:17)
[2023-12-19 12:32] LABS: Basophils Absolute Auto 0.1 10^3/uL (0.0-0.1); Basophils Percent Auto 0.5 % (0.2-2.0); Eosinophils Absolute Auto 0.2 10^3/uL (0.0-0.7); Eosinophils Percent Auto 1.3 % (0.9-7.0); Hematocrit 38.4 % (36.0-48.0); Hemoglobin 12.1 g/dL (12.0-16.0); Immature Granulocytes Abs Auto 0.04 10^3/uL (0.00-0.03); Immature Granulocytes Pct Auto 0.3 % (0.0-0.5); Lymphocytes Absolute Auto 2.3 10^3/uL (1.2-3.8); Lymphocytes Percent Auto 15.8 % (20.5-60.0); Mean Corpuscular HGB Conc 31.5 g/dL (29.9-35.2); Mean Corpuscular Hemoglobin 28.7 pg (26.7-34.0); Mean Platelet Volume 11.2 fL (9.5-13.5); Monocytes Absolute Auto 0.8 10^3/uL (0.3-0.8); Monocytes Percent Auto 5.7 % (1.7-12.0); Neutrophils Percent Auto 76.4 % (43.0-75.0); Platelet Count 371 10^3/uL (150-450); Red Blood Count 4.22 10^6/uL (4.20-5.40); Red Cell Distribution Width 17.3 % (11.0-15.0); White Blood Count 14.4 10^3/uL (4.0-11.0)
[2023-12-19 12:51] LABS: Anion Gap 13.9
[2023-12-19 12:53] LABS: Alanine Aminotransferase 27 U/L (14-59); Albumin Globulin Ratio 1.1; Alkaline Phosphatase 83 U/L (46-116); Aspartate Amino Transferase 28 U/L (15-37); BUN Creatinine Ratio 11.8; Bilirubin Total 0.2 mg/dL (0.2-1.0); Calcium 9.7 mg/dL (8.5-10.1); Carbon Dioxide 26.2 mmol/L (21.0-32.0); Chloride 102 mmol/L (98-107); Estimated GFR (African America >60 (>=60); Estimated GFR (Non-African Ame >60 (>=60); Globulin 3.7 g/dL; Glucose 80 mg/dL (74-106); Potassium 4.1 mmol/L (3.5-5.1); Sodium 138 mmol/L (136-145); Total Protein 7.7 g/dL (6.4-8.2); Troponin I High Sensitivity <4.0 pg/mL (4.0-51.3)
[2023-12-19 12:57] LABS: Lactate/Lactic Acid 1.4 mmol/L (0.4-2.0)
== END 2023-12-19 14:05 | disposition home or self-care (01) ==
PROVIDERS: Emergency Provider Emergency Medicine Emergency Medical Services
DX: F41.9 Anxiety disorder, unspecified (principal); Z98.84 Bariatric surgery status; Z79.899 Other long term (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; F17.210 Nicotine dependence, cigarettes, uncomplicated
CPT/HCPCS: 36415; 80053; 83605; 84484; 85025; 93005; 96374; 99284

== ENCOUNTER 2024-03-13 06:36 | Emergency (ER) | payer MEDICARE, MEDICAID, SELFPAY ==
--- OUTSIDE RECORDS SUMMARY | 2024-03-13 06:46 | XMS_ITS | CCD ---
Author Organization [facility] Care Team Providers Care Dermatology Nurse Practitioner Name Role Phone Jennie Ames Primary Care Provider [phone] LINDY COTE Attending Unavailable PROVIDER, UNKNOWN Admitting [...] Provider DO Jamie Larsen Referring Provider [phone] DIANNE Niño- Dorita Attending Provider Nakia Mcqueen Primary Care Physician [phone] DR CAROLYNE RALPH Consulting Unavailable MISC, DR VELASCO Primary Care Unavailable HAY ., DR WOLFF Attending Unavailable HAY ., DR WOLFF Admitting Unavailable HAY ., DR WOLFF Consulting Unavailable GABRIELA CAMARGO Attending Unavailable GABRIELA CAMARGO Admitting Unavailable GABRIELA CAMARGO Consulting Unavailable MISC, DR VELASCO Primary Care Unavailable REINECK, DR WEI Garcia Attending Unavailabl e REINECK, DR WEI Garcia Admitting Unavailabl e REINECK, DR WEI Garcia Consulting Unavailabl e MISC, DR VELASCO Primary Care Unavailable GRECHJESS ., RAMSES MARTIN Consulting Unavailabl e YOLI MCKEON Consulting Unavailable PAY ., DR NARAYANAN Consulting Unavailable PAY ., DR NARAYANAN Attending Unavailable PAY ., DR NARAYANAN Admitting Unavailable MISC, DR VELASCO Primary Care Unavailable BON ., STEFANIE Consulting Unavailable BON ., STEFANIE Attending Unavailable BON ., STEFANIE Admitting Unavailable MISC, DR VELASCO Primary Care Unavailable GABRIELA CAMARGO Consulting Unavailable GABRIELA CAMARGO Attending Unavailable KATGABRIELA JEROME D Admitting Unavailable MISC, DR VLEASCO Primary Care Unavailable YOLI ALFORD Consulting Unavailable [...] Care Unavailable MICHELLE ., RAMSES MARTIN Consulting Unavailabl e PAY ., DR NARAYANAN [...] Unavailabl e Nakia Mcqueen Primary Care Physician Jennie Ames Primary Care Physician [phone] Ames, DO Jennie D Primary Care Provider Tupa, DO Jose Maria Blue Emergency Provider Ania Javed Unavailable Eve, Imad Unavailable Ames, Jennie D Primary Care Provider Tupa, DO Jose Maria Blue Emergency Provider MD Yoli Norris Emergency Provider [phone] GANESH CORDERO Referring Unavailable AMES, JENNIE D Primary Care Unavailable DASILVAMARII Referring Unavailable AMES, JENNIE D Primary Care Unavailable EILEEN MANZANO Attending Unavailable EILEEN MANZANO Attending Unavailable LEONELA GROSSMAN Referring Unavailable Ames DO, Jennie D Primary Care Provider GAMALIEL HARRIS Referring Unavailable AMES, JENNIE D Primary Care Unavailable MARII DASILVA Referring Unavailable AMES, JENNIE D Primary Care Unavailable MARII DASILVA Referring Unavailable AMES, JENNIE D Primary Care Unavailable Ames, Jennie D Primary Care Provider [phone] MD Marii Christiansen Emergency Provider Tupa, DO Jose Maria Blue Emergency Provider CEDRIC Javed Emergency Provider [phone] Eve BHAKTA, Imad Unavailable Elia Baires DO Primary Care Provider Ames, Jennie D Primary Care Unavailable Turamses, Jose Maria M Admitting Unavailable Turamses, Jose Maria M Attending Unavailable Tupa, Jose Maria M Admitting Unavailable Tupa, Jose Maria M Attending Unavailable Ames, Jennie D Primary Care Unavailable Ames, Jennie D Primary Care Unavailable Tupa, Jose Maria M Admitting Unavailable Tupa, Jose Maria M Attending Unavailable Ames, Jennie D Primary Care Unavailable Yoli Norris Admitting Unavailable Yoli Norris Attending Unavailable Kenny Javed Admitting Unavailable Kenny Javed Attending Unavailable Ames, Jennie D Primary Care Unavailable Marii Christiansen Admitting Unavailable Marii Christiansen Attending Unavailable Ames, Jennie D Primary Care Unavailable Lindy Keen Primary Care Unavailable Efrem Victor Admitting Unavailab le Efrem Victor Attending Unavailab GAMALIEL See Admitting Unavailable GAMALIEL HARRIS Attending Unavailable LADARIUS JENNIE Jeni Primary Care Unavailable JOSELO, MARII Referring Unavailable AMES, JENNIE D Primary Care Unavailable AMES, JENNIE Jeni Primary Care Unavailable DASILVA, MARII Referring Unavailable NAFFOUJE, SAMER Attending Unavailable BAIRES, ELIA N Primary Care Unavailable NAFFOUJE, SAMER Referring Unavailable BAIRES, ELIA N Primary Care Unavailable BAIRES, ELIA N Attending Unavailable BAIRES, ELIA N Primary Care Unavailable BAIRES, ELIA N Referring Unavailable BAIRES, ELIA N Attending Unavailable Alexis Shukla Attending Unavailable Bakari Chester Attending Unavailable REFERRAL, SELF Referring Unavailable Otto Larsen Attending Unavaila Jennie Lafleur Admitting Unavailable Ladarius Jennie Jeni Referring Unavailable Jennie Ames Attending Unavailable GIL, LEONOR Bach Attending Unavailable GIL, MATERIALS SCIENTIST GANESH Bach Admitting Unavailable Otto Larsen Attending Unavaila Alexis Curry Attending Unavailable Allergies Allergy Classification Reported Allergen(s) Allergy Type Date of Onset Reaction(s) Facility coconut allergenic extract (7 sources) coconut allergenic extract Drug Allergy 07-18-20 [facility] (20 sources) coconut allergenic extract; 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: [Coconut Oil] Drug Allergy 07-18-20 Itching [place], [place] (15 sources) Coconut Flavor Propensity to adverse reactions to drug 05-09-20 Anaphylaxis [place] (1 source) SOAP; 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: [SOAP] Propensity to adverse reactions to drug (disorder) [facility] source) Pencils; 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: [Unknown] Propensity to adverse reactions (disorder) 11-13-19 [facility] (18 sources) Coconut extract; 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: [coconut] Drug Allergy 07-18-20 [facility] (15 sources) ARIPiprazole lauroxil; 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: [aripiprazole] Drug Allergy [facility] (16 sources) ARIPiprazole; 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: [aripiprazole] Drug Allergy 08-19-20 Mental Status Change, Other: See Comments, Unknown [facility] (1 source) ARIPiprazole Drug Allergy 10-30-19 23 [facility] (4 sources) busPIRone; 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: [Buspirone] Drug Allergy Unknown, palpitations [facility] (6 sources) buPROPion; 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: [BUPROPION] Drug Allergy 07-16-20 21 Unknown [facility] (4 sources) busPIRone; 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: [buspirone] Drug Allergy 12-10-19 24 Unknown Reaction [facility] Medications Current Medications Medication Drug Class(es) Dates [...] q4hr for headache, 12 cap(s), Refill(s) 0, [facility] #[id number], 170, cm, 08/22/22 10:41:00 EST, Height/Length Dosing, 85, kg, 08/22/22 10:41:00 EST, Weight Dosing Start Date: 08/22/22 Status: Ordered Start: 08-08-2022 take 1 capsule by [facility] every four hours for headache APAP/butalbital/caffeine 300 mg-50 mg-40 mg oral capsule 1 cap(s), Oral, q4hr for headache, 12 cap(s), Refill(s) 0, [facility] #[id number], 162, cm, 08/08/22 9:11:00 EST, Height/Length [...] day(s), 7 tab(s), Refill(s) 0, [id number], 170, cm, 11/21/22 10:37:00 EST, Height/Length Dosing, [...] COCET) 5-325 MG per tablet 1 tablet [id number] 60 actuat albuterol 0.09 mg/actuat metered dose [...] Ordered calcium carbonate 1250 mg oral tablet (12 sources) Start: 08-11-2022 take 500 mg by [...] Refills(s) 0 Start Date: 07/01/21 Status: Ordered clonazePAM 0.5 mg oral tablet (3 sources) Benzodiazepine Start: 01-05-2024 End: 02-04-2024 take 1 tablet by mouth twice daily as needed for anxiety clonazePAM (KLONOPIN) 0.5 mg tablet Indications: Panic disorder Take 1 tablet by mouth two times a day as needed for anxiety (Panic attacks) for up to 30 days. 60 tablet 0 01/05/2024 Active cyclobenzaprine hydrochloride 5 mg oral tablet (3 [...] day(s), # 42 tab(s), Refills(s) 0, Pharmacy: [facility]/pharmacy #[id number], 170, cm, 08/22/22 10:41:00 EST, Height/Length [...] diphenhydrAMINE (BENADRYL) i njection 12.5 mg DULoxetine 60 mg delayed release oral capsule (20 sources) Serotonin and Norepinephrine Reuptake Inhibitor Start: 03-08-2024 take 1 capsule by mouth twice daily DULoxetine (CYMBALTA) 60 mg capsule Indications: Bipolar affective disorder in remission (HCC) , Borderline personality disorder (HCC) , Anxiety disorder, unspecified type Take 1 capsule by mouth two times a day. 0 03/08/2024 Active Start: 02-21-2023 End: 12-31-2023 take 30 mg by mouth once daily at bedtime Duloxetine Discontinued 30 MG PO Daily at bedtime August 15, 2023 1:00am December 31, 2023 11:59am Start: 07-20-2020 End: 08-19-2022 Duloxetine Discontinued 30 [...] Start Date: 02/02/19 Status: Ordered Start: 01-08-2019 End: 03-08-2024 take 1 capsule by mouth once daily at bedtime Duloxetine (Cymbalta) 60 mg Capsule,Delayed Release(Dr/Ec) Active 60 MG PO Daily at bedtime January 08, 2019 12:00am Start: 01-08-2019 take 1 capsule by [facility] twice daily Duloxetine (Cymbalta) 60 mg Capsule,Delayed Release(Dr/Ec) Active 60 MG PO Twice daily January 08, 2019 12:00am take 1 capsule by [facility] every eight hours Cymbalta 30 MG 1 [...] injection (1 source) Histamine-2 Receptor Antagonist Start: famotidine (PEPCID) injection 20 mg ferrous sulfate 325 mg oral tablet (3 sources) Start: End: ferrous sulfate(IRON 325 MG (65 MG IRON) TAB) gabapentin 300 mg oral capsule (12 sources) Anti-epileptic Agent Start: End: take 1 capsule by mouth twice daily [...] mg hydrOXYzine hydrochloride 50 mg oral tablet (9 sources) Antihistamine Start: 04-21-2022 hydrOXYzine hy drochloride 50 mg oral tablet Refills(s) 0 Start Date: 04/21/22 Status: Ordered Start: 01-08-2019 End: 07-18-2020 take 25 mg by mouth three times daily Hydroxyzine Pamoate Discontinued 25 MG PO Three times daily January 08, 2019 12:00am July 18, 2020 3:27pm iv contrast (will be provide d with radiology test) (3 sources) Start: 03-08-2024 End: 03-09-2024 iv contrast (will be provide d with radiology test) Indications: Mass of upper outer quadrant of left breast MRI LT Breast Bx Inject, intravenously, once for 1 dose. No IV access, insert saline lock prior to the beginning of sedation, infusion, injection of imaging exam. Discontinue saline lock post exam. If Pt has a central line or IVAD, may access for administration according to line specific nursing protocol. Once exam is complete flush line and de-access according to line specific nursing protocol in the MR contrast administration guidelines link 1 Each 0 03/08/2024 03/09/2024 Active Start: 11-20-2022 End: 11-21-2022 iv contrast (will be provide d with radiology test) MRV Brain Inject, intravenously, [...] (NORMODYNE;TRANDATE) injection 10 mg (1 source) Start: 09-18-19 24 labetalol (NORMODYNE;TRANDATE ) injection 10 mg labetalol (NORMODYNE;TRANDATE) injection syringe 5 mg (1 source) Start: 09-28-19 21 labetalol (NORMODYNE;TRANDATE ) injection syringe 5 mg lamoTRIgine 25 mg oral tablet (2 sources) Mood Stabilizer, Anti-epileptic Agent take 3 tablets by mouth once daily lamoTRIgine (LAMICTAL) 25 mg tablet Indications: Bipolar affective disorder in remission (HCC) , Borderline personality disorder (HCC) , Anxiety disorder, unspecified type Take 75 mg by mouth once daily. 0 Active 10 ml lidocaine hydrochloride 10 mg/ml injection (1 source) Antiarrhythmic, Amide Local Anesthetic Start: 09-28-19 End: 09-28-19 lidocaine PF 1 % injection 1 mL lisinopril 5 mg oral tablet (20 sources) Angiotensin Converting Enzyme Inhibitor Start: 08-14-20 End: 07-03-20 23 take 1 tablet by mouth once daily lisinopril 5 mg Tab 5 mg = 1 tab(s), Oral, Daily, # 30 tab(s), Refills(s) 5, Pharmacy: [facility]/pharmacy #[id number], 170, cm, 09/24/22 7:09:00 EST, Height/Length Dosing, 86.8, kg, 09/24/22 7:09:00 EST, Weight Dosing Start Date: 10/06/22 Status: Ordered LORazepam 0.5 mg oral tablet (13 sources) Benzodiazepine Start: 12-31-19 take 1 tablet by mouth three times daily Lorazepam (Ativan) 0.5 mg tablet Active 0.5 MG PO Three times daily 6 December 31, 2023 12:00am Start: 01-31-2020 End: 08-19-2022 take 1 mg by mouth twice daily Lorazepam Discontinued 1 MG PO Twice daily July 18, 2020 1:00am August 19, 2022 8:39am 1 ml meperidine hydrochloride 50 mg/ml injection [...] Start Date: 07/01/21 Status: Ordered Multivitamin preparation (7 sources) Start: 08-11-2022 take 1 tablet by mouth once daily Multivitamin Active 1 TAB PO Daily August 11, 2022 1:00am Start: 08-11-2022 take 1 tablet by juan manuel th once daily Multivitamin Active 1 TAB PO Daily August 11, 2022 12:00am leekredrfvkc-lmf-okbd-FA-vit K (BARIATRIC MULTIVITAMINS) 45 mg iron- 800 mcg-120 mcg cap (13 sources) multivitamin-min -iron-FA-vit K (BARIATRIC MULTIVITAMINS) 45 mg iron- 800 mcg-120 mcg cap Take by mouth. 0 Active Comment on above: Take by mouth. naltrexone hydrochloride 50 mg oral tablet (11 sources) Opioid Antagonist Sta rt: End : take 1 tablet by mouth once daily naltrexone 50 mg tablet Indications: Chronic alcoholism in remission (HCC) Take 1 tablet by mouth once daily. 90 tablet 3 03/08/2024 03/08/2025 Active Start: 08-15-2023 End: 12-31-2023 inject 380 mg by intramuscular injection every month Naltrexone Microspheres (Vivitrol) 380 mg suspension,extended rel recon Discontinued 380 MG IM every month August 15, 2023 1:00am December 31, 2023 12:00pm Not planning on taking it this month Start: 09-24-2022 take 1 tablet by juan manuel th once daily naltrexone 50 mg oral tablet 50 mg = 1 tab(s), Oral, Daily, # 30 tab(s), Refills(s) 0 Start Date: 09/24/22 Status: Ordered naproxen 500 mg oral tablet (9 sources) Nonsteroidal Anti-inflammatory Drug Start: 03-08-2024 End: 03-18-2024 take 1 tablet by mouth twice daily naproxen 500 mg Tab 500 mg = 1 tab(s), Oral, BID, X 10 day(s), # 20 tab(s), Refills(s) 0, Pharmacy: [facility]/pharmacy #[id number], 170, cm, 03/08/24 13:22:00 EDT, Height/Length Dosing, 89.4, kg, 03/08/24 13:22:00 EDT, Weight Dosing Start Date: 03/08/24 Stop Date: 03/18/24 Status: Ordered Start: 04-20-2022 take 1 tablet by juan manuel th twice daily as needed for pain naproxen 500 mg Tab 500 mg = 1 tab(s), Oral, BID, PRN for pain, # 20 tab(s), Refills(s) 0, Pharmacy: [facility]/pharmacy #[id number], 170, cm, 04/20/22 15:01:00 EDT, Height/Length Dosing, 81.5, kg, 04/20/22 15:01:00 EDT, Weight Dosing Start Date: 04/20/22 Status: Ordered 24 hr nicotine 0.583 mg/hr transdermal system (1 source) Cholinergic Nicotinic Agonist Start: 11-03-2022 End: 01-02-2023 nicotine 14 mg/24 hr Transderm ER Film 1 patch(es), Topical, Daily for 30 day(s), 30 patch(es), Refill(s) 1, [facility]/pharm[facility] #[id number], 170, cm, 11/03/22 13:04:00 EST, Height/Length Dosing, 83.9, kg, 11/03/22 13:04:00 EST, Weight Dosing Start Date: 11/03/22 Stop Date: 01/02/23 Status: Ordered nitrofurantoin macrocrystals-monohy drate 100 mg Cap (2 sources) Start: 01-29-2022 take 1 capsule by mouth twice daily at mealtime nitrofurantoin macrocrystals-monoh ydrate 100 mg Cap TAKE 1 CAPSULE BY MOUTH TWICE A DAY FOR 5 DAYS WITH FOOD Start Date: 01/29/22 Status: Ordered nitrofurantoin, macrocrystals 25 mg / nitrofurantoin, monohydrate 75 mg oral capsule (9 sources) Nitrofuran Antibacterial Start: 01-29-2022 take 1 capsule by mouth twice daily at mealtime nitrofurantoin macrocrystals-monoh ydrate 100 mg Cap TAKE 1 CAPSULE BY MOUTH TWICE A DAY FOR 5 DAYS WITH FOOD Start Date: 01/29/22 Status: Ordered nystatin [id number] unt/ml oral suspension (1 source) Polyene Antifungal [...] BID, # 6 tab(s), Refills(s) 1, Pharmacy: [facility]/pharmacy #[id number], 162, cm, 08/08/22 9:11:00 EST, Height/Length [...] ondansetron (ZOFRAN) injecti on 4 mg Trileptal (12 sources) Anti-epileptic Agent Start: 08-22-2022 Trileptal Refills(s) 0 Start Date: 08/22/22 Status: Ordered Start: 08-12-2022 End: 08-15-2023 take 75 mg by mouth twice daily Oxcarbazepine Discontinued 75 MG PO Twice daily August 12, 2022 1:00am August 15, 2023 12:45pm oxyCODONE (1 source) Opioid Agonist Start: 09-18-2023 End: 09-18-2023 oxyCODONE (ROXICODONE) immediate release tablet 5 mg pantoprazole 40 mg delayed release oral tablet (20 sources) Proton Pump Inhibitor Start: 07-01-2021 Pantoprazole 40 mg D R Tab Refills(s) 0 Start Date: 07/01/21 Status: Ordered Start: 06-27-2020 End: 01-04-2024 take 1 tablet by mouth once daily Pantoprazole [address] Tab 40 mg = 1 tab(s), Oral, Daily, Refills(s) 0, Gas Start Date: 07/01/21 Status: Ordered Comment on above: Take 40 mg by mouth once daily. piperacillin-tazobactam (ZOSYN) 3,375 mg in dextrose 5 % 50 mL IVPB (mini-bag) (2 sources) Start: 01-30-2021 piperacillin-tazobactam (ZOSYN) 3,375 mg in dextrose 5 % 50 mL IVPB (mini-bag) Start: 01-30-2021 End: 01-30-2021 piperacillin-tazobactam (ZOS YN) 3,375 mg in dextrose 5 % 50 mL IVPB (mini-bag) vits w-ca,fe,fa(<1m g)( VITAMIN TAB) (3 sources) Start: 06-22-2008 End: 02-13-2022 vits w-ca,fe,fa( Start: 06-22-2008 vits w-ca,fe,fa( 72 hr scopolamine 0.0139 mg/hr transdermal system (1 source) Anticholinergic Start: 01-07-2021 scopolamine (TRANSDERM-SCOP) transdermal patch 1 patch Semaglutide (1 source) Start: 12-31-2023 Semaglutide (O zempic) 0.25 mg or 0.5 mg (2 mg/3 mL) pen injector Active 0.5 MG SUBCUT every week December 31, 2023 12:00am for 4 weeks 5 ml sodium chloride 9 mg/ml injection [...] e flush 0.9 % injection 10 mL topiramate 100 mg oral table t (20 sources) Start: 08-15-2023 Topiramate (To pamax) 100 mg tablet Active 50 MG PO [...] PO Twice daily 0 August 12, 2022 5:17pm August 15, 2023 [...] mg by mouth once daily at bedtime trazodone 100 mg, Oral, Once a day (at bedtime), Refills(s) 0, Sleep Start Date: 08/22/22 Status: Ordered Start: 01-31-2022 End: 02-07-2022 take 1 tablet by mouth once daily at bedtime traZODONE 50 mg Tab 50 mg = 1 tab(s), Oral, Once a day (at bedtime), X 7 day(s), # 7 tab(s), Refills(s) 0, Pharmacy: [facility]/pharmacy #[id number], 170, cm, 01/31/22 16:58:00 EDT, Height/Length Dosing, 90, kg, 01/31/22 16:58:00 EDT, Weight Dosing Start Date: 01/31/22 Stop Date: 02/07/22 Status: Ordered triamcinolone acetonide 1 mg/ml topical cream (2 sources) Corticosteroid Start: 03-08-2024 triamcinolone acetonide (KENALOG) 0.1 % cream Indications: Dermatitis Apply to affected area two times a day. 28.4 g 0 03/08/2024 Active varenicline 0.5 mg oral tablet (20 sources) Partial Cholinergic Nicotinic Agonist Start: 03-08-2024 take 1 tablet by mouth once daily varenicline (CHANTIX) 0.5 mg (11)- 1 mg (42) tablet Take 0.5 mg by mouth once daily on Days 1 through 3, THEN 0.5 mg twice daily on Days 4 through 7, THEN 1 mg twice daily on Day 8 and thereafter 42 tablet 0 03/08/2024 Active Start: 10-16-2023 End: 03-08-2024 take 1 tablet by mouth once varenicline (CHANTIX) 0.5 mg (11)- 1 mg (42) tablet TAKE 1 TABLET BY MOUTH DIRECTED PER PACKAGE INSTRUCTIONS 0 10/16/2023 03/08/2024 Discontinued Start: 04-21-2022 varenicline 0. 5 mg oral tablet See Instructions, Step 1: [...] successful., # 154 tab(s), Refills(s) 0, Pharmacy: [facility]/pharmacy #[id number], 170, cm, 04/21/22 9:4... Start Date: 04/21/22 Status: Ordered Zofran ODT 4 mg Tab-Dis (2 sources) Start: 08-08-2022 take 1 tablet by mouth every eight hours as needed for nausea Zofran ODT 4 mg Tab-Dis 4 mg = 1 tab(s), Oral, q8hr, PRN Nausea/Vomiting, # 12 tab(s), Refills(s) 0, Pharmacy: [facility]/pharmacy #[id number], 162, cm, 08/08/22 9:11:00 EST, Height/Length Dosing, 83.1, kg, 08/08/22 9:11:00 EST, Weight Dosing Start Date: 08/08/22 Status: Ordered Completed/Discontinued Medications Medication Drug Class(es) Dates Sig (Normalized) Sig (Original) acetaZOLAMIDE 250 mg oral tablet (20 sources) Carbonic Anhydrase Inhibitor Start: 07-07-2023 End: 03-08-2024 take 250 mg by mouth twice daily Acetazolamide Discontinued 250 MG PO Twice daily August 15, 2023 1:00am December 31, 2023 11:59am Start: 11-20-2022 End: 01-04-2024 take 1 capsule by mouth twice daily acetaZOLAMIDE 500 mg oral capsule, extended release 500 mg = 1 cap(s), Oral, BID, Refills(s) 0, Other (see comment) Start Date: 11/21/22 Status: Ordered Comment on above: Take 1 capsule by [facility] twice daily. Start from 500mg daily, increase to twice a day in a week aspirin 81 mg chewable tablet (1 source) Platelet Aggregation Inhibitor, Nonsteroidal Anti-inflammatory Drug End: 09-25-19 take 1 tablet by mouth twice daily aspirin 81 MG chewable tablet Take 81 mg by mouth 2 times daily 0 09/25/2020 Discontinued (LIST CLEANUP) barium sulfate 60 % suspension 355 mL (1 source) Start: 11-01-19 End: 11-01-19 barium sulfate 60 % suspension 355 mL benzonatate 200 mg oral capsule (3 sources) Non-narcotic Antitussive Start: 12-04-19 take 1 capsule by mouth every eight hours Benzonatate 200 MG 1 capsule Orally Three times a day for 7 days Nov, Not-Taking/PRN brexpiprazole 4 mg oral tablet (20 sources) Atypical Antipsychotic Start: 06-26-20 End: 03-08-20 REXULTI 4 MG TABS tablet Start: 01-08-2019 take 1 tablet by mouth once da rafita Rexulti 3 mg oral tablet 3 mg = 1 tab(s), Oral, Daily, Other (see comment) Start Date: 02/02/19 Status: Ordered Rexulti Active Comment on above: Take by mouth once d aily. calcium citrate 0.415 mg/mg / cholecalciferol 0.1 unt/mg oral powder (12 sources) Vitamin D End: 03-08-2024 calcium citrate-vitamin D3 500 mg-12.5 mcg /5 gram powd Take by mouth. 0 03/08/2024 Discontinued Comment on above: Take by mouth. ceFAZolin [...] Nov, Not-Taking/PRN ergocalciferol 1.25 mg oral capsule (7 sources) Provitamin D2 Compound Start: 07-19-2020 End: 08-19-2022 take 53158 [IU] by mouth every week Ergocalciferol (Vitamin D2) Discontinued 58167 UNIT PO every week July 19, 2020 [...] End: 01-08-2021 ketorolac (TORADOL) injection 30 mg Magic Mouthwash (10 sources) Start: 02-06-2022 End: 02-20-2022 Magic Mouthwash Magic Mouthwash, 5 mL, Oral, TID, 240 mL, 0, Swish and swallow. 30 mL Nystatin + 210 mL Diphenhydramine + #5 tabs 20 mg hydrocortisone + Doxycycline 1,000 mg (tabs/cap)., [id number], Compound, 170, cm, 02/06/22 9:17:00 EDT, [...] daily Dasilva melts with iron 0 Active 100 ml potassium chloride 0.1 meq/ml injection (1 source) Start: 01-08-2021 End: 01-08-2021 potassium chloride 10 mEq/100 mL IVPB (Peripheral Line) predniSONE 20 mg oral tablet (3 sources) Start: 07-08-2023 take 1 tablet by mouth every twelve hours predniSONE 20 MG 1 tablet Orally bid for 5 day(s) Jun, Not-Taking/PRN promethazine hydrochloride 25 mg oral tablet (19 sources) Phenothiazine Start: 08-15-2023 End: 12-31-2023 take 25 mg by mouth every six hours Promethazine Discontinued 25 MG PO Q6H August 15, 2023 1:00am December 31, 2023 12:00pm Start: 08-22-2022 Phenergan Refi lls(s) 0 Start [...] 09-28-2020 promethazine ( PHENERGAN) injection 12.5 mg QUEtiapine 100 mg oral tablet (20 sources) Atypical Antipsychotic Start: 07-19-2020 End: 08-19-2022 take 100 mg by mouth once daily [...] mouth daily 0 12/24/2020 Discontinued (LIST CLEANUP) SEMAGLUTIDE SUBCUTANEOUS (3 sources) End: 03-08-2024 SEMAGLUTIDE SUBCUTANEOUS Inj ect subcutaneously. 0 03/08/2024 Discontinued SEMAGLUTIDE SUBC UTANEOUS Inject subcutaneously. 0 Active sucralfate 1000 mg oral tablet (5 sources) Aluminum Complex Start: 07-30-2023 End: 12-31-2023 take 1 g by mouth four times daily Sucralfate Discontinued 1 GM PO Four times daily August 15, 2023 1:00am December 31, 2023 12:00pm SUMAtriptan (3 sources) Serotonin-1b and Serotonin-1d Receptor Agonist Imitrex Not-Taking/PRN Imitrex Not-Taki ng terbinafine 250 mg oral tablet (7 sources) Allylamine Antifungal Start: 07-19-2020 End: 07-20-2020 [...] 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: [Alcohol abuse, uncomplicated] Onset: 2 Chronic Allergic reactions (1 source) Inflammatory dermatosis; 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: [Dermatitis, unspecified] 03-08-2024 Episodic Anxiety disorders (20 sources) Mixed anxiety and depressive disorder; 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: [Anxiety disorder, unspecified] Onset: 0 05-16-2020 Chronic Blindness and vision defects (10 sources) Blurring of visual image; 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: [Other visual disturbances] Onset: 2 08-11-2022 Episodic Cardiac dysrhythmias (9 sources) Palpitations; 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: [Palpitations] 08-12-2022 Episodic Chronic obstructive pulmonary disease and bronchiectasis (1 source) Bronchitis, not specified as acute or chronic Episodic Complications of surgical procedures or medical care (14 sources) Reaction to lumbar puncture; 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: [Other [...] esophagitis] Onset: 0 Resolved: 3 05-23-2020 Chronic Headache; including migraine (5 sources) Tension-type headache; 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: [Tension-type headache, unspecified, not intractable] 08-21-2022 Chronic Headache; including migraine (11 sources) Headache; 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: [Headache, unspecified] Onset: 2 [...] [Depression, unspecified] Onset: 0 Nonmalignant breast conditions (20 sources) Hypertrophy of breast; 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: [Hypertrophy of breast] Onset: 2 Episodic Nonspecific chest pain (8 sources) Chest pain, unspecified; 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: [Other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 500 mg Tab) 1 Tablets By Mouth 2 times a day for 10 Days. Refills: 0. Medications to Continue with [...] day (at bedtime). PATIENT EDUCATION INFORMATION: Instructions: Lumbosacral Strain; Head Injury, Adult; Muscle Strain Follow up: With: Address: When: David Zazueta [address] [facility], [address] [place] [phone] Business (1) In 3 days 03/11/2024 With: Address: When: Jennie Ames [address] [facility] [facility] [place] [address] Business (1) In 3 days DIAGNOSIS: Cervical strain; Headache; Low back pain; Spondylolisthesis; Strain of thoracic spine; Whiplash injury Normal [facility] ED Patient Education Noteon 03-08-2024 ED Patient Education Note Neurology Head Injury, Adult There are many types of head injuries. Head injuries can be as minor as a small bump, or they can be a serious medical issue. More severe head injuries include: ? A jarring injury to the brain (concussion). ? A bruise (contusion) of the brain. This means there is bleeding in the brain that can cause swelling. ? A cracked skull (skull fracture). ? Bleeding in the brain that collects, clots, and forms a bump (hematoma). After a head injury, most problems occur within the first 24 hours, but side effects may occur up to 7?10 days after the injury. It is important to watch your condition for any changes. You may need to be observed in the emergency department or urgent care, or you may be admitted to the hospital. What are the causes? There are many possible causes of a head injury. Serious head injuries may be caused by car accidents, bicycle or motorcycle accidents, sports injuries, falls, or being struck by an object. What are the symptoms? Symptoms of a head injury include a contusion, bump, or bleeding at the site of the injury. Other physical symptoms may include: ? Headache. ? Nausea or vomiting. ? Dizziness. ? Blurred or double vision. ? Being uncomfortable around bright lights or loud noises. ? Seizures. ? Feeling tired. ? Trouble being awakened. ? Loss of consciousness. Mental or emotional symptoms may include: ? Irritability. ? Confusion and memory problems. ? Poor attention and concentration. ? Changes in eating or sleeping habits. ? Anxiety or depression. How is this diagnosed? This condition can usually be diagnosed based on your symptoms, a description of the injury, and a physical exam. You may also have imaging tests done, such as a CT scan or an MRI. How is this treated? Treatment for this condition depends on the severity and type of injury you have. The main goal of treatment is to prevent complications and allow the brain time to heal. Mild head injury If you have a mild head injury, you may be sent home, and treatment may include: ? Observation. A responsible adult should stay with you for 24 hours after your injury and check on you often. ? Physical rest. ? Brain rest. ? Pain medicines. Severe head injury If you have a severe head injury, treatment may include: ? Close observation. This includes hospitalization with the following care: ? Frequent physical exams. ? Frequent checks of how your brain and nervous system are working (neurological status). ? Checking your blood pressure and oxygen levels. ? Medicines to relieve pain, prevent seizures, and decrease brain swelling. ? Airway protection and breathing support. This may include using a ventilator. ? Treatments that monitor and manage swelling inside the brain. ? Brain surgery. This may be needed to: ? Remove a collection of blood or blood clots. ? Stop the bleeding. ? Remove a part of the skull to allow room for the brain to swell. Follow these instructions at home: Activity ? Rest and avoid activities that are physically hard or tiring. ? Make sure you get enough sleep. ? Let your brain rest by limiting activities that require a lot of thought or attention, such as: ? Watching TV. ? Playing memory games and puzzles. ? Job-related work or homework. ? Working on the computer, using social media, and texting. ? Avoid activities that could cause another head injury, such as playing sports, until your health care provider approves. Having another head injury, especially before the first one has healed, can be dangerous. ? Ask your health care provider when it is safe for you to return to your regular activities, including work or school. Ask your health care provider for a pnvv-fr-ober plan for gradually returning to activities. ? Ask your health care provider when you can drive, ride a bicycle, or use heavy machinery. Your ability to react may be slower after a brain injury. Do not do these activities if you are dizzy. Lifestyle ? Do not drink alcohol until your health care provider approves. Do not use drugs. Alcohol and certain drugs may slow your recovery and can put you at risk of further injury. ? If it is harder than usual to remember things, write them down. ? If you are easily distracted, try to do one thing at a time. ? Talk with family members or close friends when making important decisions. ? Tell your friends, family, a trusted colleague, and forming process worker about your injury, symptoms, and restrictions. Have them watch for any new or worsening problems. General instructions ? Take dhcy-zbp-veexvhj and prescription medicines only as told by your health care provider. ? Have someone stay with you for 24 hours after your head injury. This person should watch you for any changes in your symptoms and be ready to seek medical help. ? Keep all follow-up visits as told by your health care pr (more content not included)... Normal [facility] ED Patient Summaryon 024 ED Patient Summary (Inserted Image. Jordana ble to display) [place] [id number] Patient Discharge Instructions Person Information Name: SHAZIA CHOU Age: 33 Years Arrival Date: 03/08/2024 13:05:13 Discharge Diagnosis: Cervical strain; Headache; Low back pain; Spondylolisthesis; Strain of thoracic spine; Whiplash injury Primary Care Physician: Jennie Ames DO Provider Information Primary Provider: Alexis Shukla DO [employer] Supervisor:Ben Garber PA-C. The exam and treatment you received in the Emergency Department were for an urgent problem and are not intended as complete care. It is important that you follow up with a doctor, nurse practitioner, or physician?s field administrative assistant for ongoing care. If your symptoms become worse or you do not improve as expected and you are unable to reach your usual health care provider, you should return to the Emergency Department. We are available 24 hours a day. SHAZIA CHOU has been given the following list of patient education materials, prescriptions and follow-up instructions: Follow-up Instructions: With: Address: When: David Zazueta [address], [address] [place] [phone] Business (1) In 3 days 03/11/2024 With: Address: When: Jennie Ames [address] [place] [address] Business (1) In 3 days In the event that this physician does not participate in your insurance network, please consult with your insurance company to find a nearby participating provider. Patient Education Materials: Lumbosacral Strain; Head Injury, Adult; Muscle Strain A MESSAGE TO ALL PATIENTS REGARDING OPIOIDS PRESCRIPTION OPIOIDS: WHAT YOU NEED TO KNOW Prescription opioids can be used to help relieve uidbeoex-dz-pccrbr pain and are often prescribed following a [...] guidance from the Food and Drug Administration (www.fda.gov/Drugs/Resou rcesForYou). ? Visit www.cdc.gov/drugov (more content not included)... Normal [facility] ED Traumaon 03-08-2024 ED Trauma [id number] IFF [facility] MR Biliary ducts and Pancrea tic duct WO and W contrast Ramón 03-08-2024 * * *Final Report* * * DATE OF EXAM: Mar 08 2024 11:04AM [facility] 0730 - MRI PANC/TANMAY WO/W IVCON / PROCEDURE REASON: Pancreas cyst * * * * Physician Interpretation * * * * MRI ABDOMEN WITHOUT AND WITH IV CONTRAST CLINICAL HISTORY: Follow-up pancreatic cystic structure TECHNIQUE: Magnet: 1.5T scanner. Multiplanar MRI of the abdomen with multiple sequences, performed before and after intravenous contrast. Additional MR cholangiopancreatography sequences were performed. Image post-processing {Maximum intensity Projection (MIP), Volume-rendered (VR), Surface shaded display images (SSD) or complex volumetric analysis} was performed at an off-line workstation with concurrent physician supervision, with images created, reviewed and archived. Contrast: Intravenous: 18 ml of Dotarem COMPARISON: MRI abdomen 08/18/2023 RESULT: Liver: Normal morphology. No hepatic steatosis. No mass. Biliary: No intrahepatic or extrahepatic bile duct dilation. No biliary filling defect. Gallbladder is normal. Spleen: No mass. No splenomegaly. Pancreas: 2.6 x 3.6 cm T2 hyperintense cystic structure with thin internal septations along the caudal margin of the pancreatic body (4:32) stable compared to prior study. No ductal dilatation. No worrisome features. Adrenals: No mass. Kidneys: No solid or cystic mass. No hydronephrosis. GI: No dilated bowel or wall thickening along imaged segments. Lymph nodes: No abdominal lymphadenopathy. Mesentery / Peritoneum / Retroperitoneum: No ascites or mass. Vasculature: The celiac axis and SMA are patent. The portal vein and branches, splenic vein, SMV, and hepatic veins are patent. No aortic or iliac artery aneurysm. Bones/Soft Tissues: No suspicious lesion. Lower chest: Unremarkable. DIVISION OF RADIOLOGY Provider, [facility] - 03/08/2024 * * *Final Report* * * DATE OF EXAM: Mar 08 2024 11:04AM [facility] 0730 - MRI PANC/TANMAY WO/W IVCON / PROCEDURE REASON: Pancreas cyst * * * * Physician Interpretation * * * * MRI ABDOMEN WITHOUT AND WITH IV CONTRAST CLINICAL HISTORY: Follow-up pancreatic cystic structure TECHNIQUE: Magnet: 1.5T scanner. Multiplanar MRI of the abdomen with multiple sequences, performed before and after intravenous contrast. Additional MR cholangiopancreatography sequences were performed. Image post-processing {Maximum intensity Projection (MIP), Volume-rendered (VR), Surface shaded display images (SSD) or complex volumetric analysis} was performed at an off-line workstation with concurrent physician supervision, with images created, reviewed and archived. Contrast: Intravenous: 18 ml of Dotarem COMPARISON: MRI abdomen 08/18/2023 RESULT: Liver: Normal morphology. No hepatic steatosis. No mass. Biliary: No intrahepatic or extrahepatic bile duct dilation. No biliary filling defect. Gallbladder is normal. Spleen: No mass. No splenomegaly. Pancreas: 2.6 x 3.6 cm T2 hyperintense cystic structure with thin internal septations along the caudal margin of the pancreatic body (4:32) stable compared to prior study. No ductal dilatation. No worrisome features. Adrenals: No mass. Kidneys: No solid or cystic mass. No hydronephrosis. GI: No dilated bowel or wall thickening along imaged segments. Lymph nodes: No abdominal lymphadenopathy. Mesentery / Peritoneum / Retroperitoneum: No ascites or mass. Vasculature: The celiac axis and SMA are patent. The portal vein and branches, splenic vein, SMV, and hepatic veins are patent. No aortic or iliac artery aneurysm. Bones/Soft Tissues: No suspicious lesion. Lower chest: Unremarkable. IMPRESSION IMPRESSION: Stable cystic structure inferior to the pancreatic body when compared to 08/18/2023. No worrisome features. This remains indeterminate and does not definitively communicate with the pancreatic ducts. Production Cloth Cutter: WILLIAM Transcribe Date/Time: Mar 08 2024 1:37P Dictated by : TAVARES PENA MD This examination was interpreted and the report reviewed and electronically signed by: SUN LOREDO MD on Mar 08 2024 3:08PM [facility] MR Unspecified body region 3 D post processingon 03-08-2024 * * *Final Report* * * DATE OF EXAM: Mar 08 2024 11:04AM [facility] 0280 - MRI 3D POST PROCESSING / PROCEDURE REASON: Pancreas cyst * * * * Physician Interpretation * * * * MRI ABDOMEN WITHOUT AND WITH IV CONTRAST CLINICAL HISTORY: Follow-up pancreatic cystic structure TECHNIQUE: Magnet: 1.5T scanner. Multiplanar MRI of the abdomen with multiple sequences, performed before and after intravenous contrast. Additional MR cholangiopancreatography sequences were performed. Image post-processing {Maximum intensity Projection (MIP), Volume-rendered (VR), Surface shaded display images (SSD) or complex volumetric analysis} was performed at an off-line workstation with concurrent physician supervision, with images created, reviewed and archived. Contrast: Intravenous: 18 ml of Dotarem COMPARISON: MRI abdomen 08/18/2023 RESULT: Liver: Normal morphology. No hepatic steatosis. No mass. Biliary: No intrahepatic or extrahepatic bile duct dilation. No biliary filling defect. Gallbladder is normal. Spleen: No mass. No splenomegaly. Pancreas: 2.6 x 3.6 cm T2 hyperintense cystic structure with thin internal septations along the caudal margin of the pancreatic body (4:32) stable compared to prior study. No ductal dilatation. No worrisome features. Adrenals: No mass. Kidneys: No solid or cystic mass. No hydronephrosis. GI: No dilated bowel or wall thickening along imaged segments. Lymph nodes: No abdominal lymphadenopathy. Mesentery / Peritoneum / Retroperitoneum: No ascites or mass. Vasculature: The celiac axis and SMA are patent. The portal vein and branches, splenic vein, SMV, and hepatic veins are patent. No aortic or iliac artery aneurysm. Bones/Soft Tissues: No suspicious lesion. Lower chest: Unremarkable. DIVISION OF RADIOLOGY Provider, [facility] - 03/08/2024 * * *Final Report* * * DATE OF EXAM: Mar 08 2024 11:04AM [place] [id number] - MRI 3D POST PROCESSING / PROCEDURE REASON: Pancreas cyst * * * * Physician Interpretation * * * * MRI ABDOMEN WITHOUT AND WITH IV CONTRAST CLINICAL HISTORY: Follow-up pancreatic cystic structure TECHNIQUE: Magnet: 1.5T scanner. Multiplanar MRI of the abdomen with multiple sequences, performed before and after intravenous contrast. Additional MR cholangiopancreatography sequences were performed. Image post-processing {Maximum intensity Projection (MIP), Volume-rendered (VR), Surface shaded display images (SSD) or complex volumetric analysis} was performed at an off-line workstation with concurrent physician supervision, with images created, reviewed and archived. Contrast: Intravenous: 18 ml of Dotarem COMPARISON: MRI abdomen 08/18/2023 RESULT: Liver: Normal morphology. No hepatic steatosis. No mass. Biliary: No intrahepatic or extrahepatic bile duct dilation. No biliary filling defect. Gallbladder is normal. Spleen: No mass. No splenomegaly. Pancreas: 2.6 x 3.6 cm T2 hyperintense cystic structure with thin internal septations along the caudal margin of the pancreatic body (4:32) stable compared to prior study. No ductal dilatation. No worrisome features. Adrenals: No mass. Kidneys: No solid or cystic mass. No hydronephrosis. GI: No dilated bowel or wall thickening along imaged segments. Lymph nodes: No abdominal lymphadenopathy. Mesentery / Peritoneum / Retroperitoneum: No ascites or mass. Vasculature: The celiac axis and SMA are patent. The portal vein and branches, splenic vein, SMV, and hepatic veins are patent. No aortic or iliac artery aneurysm. Bones/Soft Tissues: No suspicious lesion. Lower chest: Unremarkable. IMPRESSION IMPRESSION: Stable cystic structure inferior to the pancreatic body when compared to 08/18/2023. No worrisome features. This remains indeterminate and does not definitively communicate with the pancreatic ducts. Production Cloth Cutter: WILLIAM Transcribe Date/Time: Mar 08 2024 1:37P Dictated by : TAVARES PENA MD This examination was interpreted and the report reviewed and electronically signed by: SUN LOREDO MD on Mar 08 2024 3:08PM [facility] MRI 3D POST PROCESSINGon MRI 3D POST PROCESSING * * *Final Report* * * DATE OF EXAM: Mar 08 2024 11:04AM [facility] 0280 - MRI 3D POST PROCESSING / PROCEDURE REASON: Pancreas cyst * * * * Physician Interpretation * * * * MRI ABDOMEN WITHOUT AND WITH IV CONTRAST CLINICAL HISTORY: Follow-up pancreatic cystic structure TECHNIQUE: Magnet: 1.5T scanner. Multiplanar MRI of the abdomen with multiple sequences, performed before and after intravenous contrast. Additional MR cholangiopancreatography sequences were performed. Image post-processing {Maximum intensity Projection (MIP), Volume-rendered (VR), Surface shaded display images (SSD) or complex volumetric analysis} was performed at an off-line workstation with concurrent physician supervision, with images created, reviewed and archived. Contrast: Intravenous: 18 ml of Dotarem COMPARISON: MRI abdomen 08/18/2023 RESULT: Liver: Normal morphology. No hepatic steatosis. No mass. Biliary: No intrahepatic or extrahepatic bile duct dilation. No biliary filling defect. Gallbladder is normal. Spleen: No mass. No splenomegaly. Pancreas: 2.6 x 3.6 cm T2 hyperintense cystic structure with thin internal septations along the caudal margin of the pancreatic body (4:32) stable compared to prior study. No ductal dilatation. No worrisome features. Adrenals: No mass. Kidneys: No solid or cystic mass. No hydronephrosis. GI: No dilated bowel or wall thickening along imaged segments. Lymph nodes: No abdominal lymphadenopathy. Mesentery / Peritoneum / Retroperitoneum: No ascites or mass. Vasculature: The celiac axis and SMA are patent. The portal vein and branches, splenic vein, SMV, and hepatic veins are patent. No aortic or iliac artery aneurysm. Bones/Soft Tissues: No suspicious lesion. Lower chest: Unremarkable. IMPRESSION: Stable cystic structure inferior to the pancreatic body when compared to 08/18/2023. No worrisome features. This remains indeterminate and does not definitively communicate with the pancreatic ducts. Production Cloth Cutter: WILLIAM Transcribe Date/Time: Mar 08 2024 1:37P Dictated by : TAVARES PENA MD This examination was interpreted and the report reviewed and electronically signed by: SUN LOREDO MD on Mar 08 2024 3:08PM EST [id number] Normal [facility] MRI PANC/TANMAY WO/W IVCONon MRI PANC/TANMAY WO/W IVCON * * *Final Report* * * DATE OF EXAM: Mar 08 2024 11:04AM [facility] 0730 - MRI PANC/TANMAY WO/W IVCON / PROCEDURE REASON: Pancreas cyst * * * * Physician Interpretation * * * * MRI ABDOMEN WITHOUT AND WITH IV CONTRAST CLINICAL HISTORY: Follow-up pancreatic cystic structure TECHNIQUE: Magnet: 1.5T scanner. Multiplanar MRI of the abdomen with multiple sequences, performed before and after intravenous contrast. Additional MR cholangiopancreatography sequences were performed. Image post-processing {Maximum intensity Projection (MIP), Volume-rendered (VR), Surface shaded display images (SSD) or complex volumetric analysis} was performed at an off-line workstation with concurrent physician supervision, with images created, reviewed and archived. Contrast: Intravenous: 18 ml of Dotarem COMPARISON: MRI abdomen 08/18/2023 RESULT: Liver: Normal morphology. No hepatic steatosis. No mass. Biliary: No intrahepatic or extrahepatic bile duct dilation. No biliary filling defect. Gallbladder is normal. Spleen: No mass. No splenomegaly. Pancreas: 2.6 x 3.6 cm T2 hyperintense cystic structure with thin internal septations along the caudal margin of the pancreatic body (4:32) stable compared to prior study. No ductal dilatation. No worrisome features. Adrenals: No mass. Kidneys: No solid or cystic mass. No hydronephrosis. GI: No dilated bowel or wall thickening along imaged segments. Lymph nodes: No abdominal lymphadenopathy. Mesentery / Peritoneum / Retroperitoneum: No ascites or mass. Vasculature: The celiac axis and SMA are patent. The portal vein and branches, splenic vein, SMV, and hepatic veins are patent. No aortic or iliac artery aneurysm. Bones/Soft Tissues: No suspicious lesion. Lower chest: Unremarkable. IMPRESSION: Stable cystic structure inferior to the pancreatic body when compared to 08/18/2023. No worrisome features. This remains indeterminate and does not definitively communicate with the pancreatic ducts. Production Cloth Cutter: [employer] Transcribe Date/Time: Mar 08 2024 1:37P Dictated by : TAVARES PENA MD This examination was interpreted and the report reviewed and electronically signed by: SUN LOREDO MD on Mar 08 2024 3:08PM EST [id number] Normal [facility] No Panel Informationon 03-08 IMPRESSION: Stable cystic structure inferior to the pancreatic body when compared to 08/18/2023. No worrisome features. This remains indeterminate and does not definitively communicate with the pancreatic ducts. Production Cloth Cutter: [employer] Transcribe Date/Time: Mar 08 2024 1:37P Dictated by : TAVARES PENA MD This examination was interpreted and the report reviewed and electronically signed by: SUN LOREDO MD on Mar 08 2024 3:08PM EST DIVISION OF RADIOLOGY Radiology Study observation (narrative) [facility] No Panel InformationOrdered By: [facility] Provider on 03-08-2024 [facility] Prescriptions/Work Noteson 0 03-08-2024 Prescriptions/Work Notes [id number] IFF Normal [facility] Comprehensive metabolic 2000 panelon 02-25-2024 Albumin [Mass/Vol] 4.5 g/dL Normal 3.9-4.9 [facility] Comment on above: Order Comment: Speci men Type: BLOOD SPECIMENOrdering Facility: [facility] Address: [address] [place] [address] Performed By: #### 2 4323-8 ####[facility] LABCLIA [id number] [place] [address] ALP [Catalytic activity/Vol] 76 U/L Normal 34-123 [facility] Comment on above: Order Comment: Speci men Type: BLOOD SPECIMENOrdering Facility: [facility] Address: [address] [place] [address] Performed By: #### 2 4323-8 ####[facility] LABCLIA [id number] [place] [address] ALT [Catalytic activity/Vol] 14 U/L Normal 7-38 [facility] Comment on above: Order Comment: Speci men Type: BLOOD SPECIMENOrdering Facility: [facility] Address: [address] [place] [address] Performed By: #### 2 4323-8 ####[facility] LABCLIA [id number] [place] [address] Anion gap [Moles/Vol] 8 mmol/L Normal 8-15 [facility] Comment on above: Order Comment: Speci men Type: BLOOD SPECIMENOrdering Facility: [facility] Address: [address] [place] [address] Performed By: #### 2 4323-8 ####[facility] LABCLIA [id number] [place] [address] AST [Catalytic activity/Vol] 20 U/L Normal 13-35 [facility] Comment on above: Order Comment: Speci men Type: BLOOD SPECIMENOrdering Facility: [facility] Address: [address] [place] [address] Performed By: #### 2 4323-8 ####[facility] LABCLIA [id number] [place] [address] Bilirubin [Mass/Vol] 0.3 mg/dL Normal 0.2-1.3 [facility] Comment on above: Order Comment: Speci men Type: BLOOD SPECIMENOrdering Facility: [facility] Address: [address] [place] [address] Performed By: #### 2 4323-8 ####[facility] LABCLIA [id number] [place] [address] Calcium [Mass/Vol] 10.5 mg/dL High 8.5-10.2 [facility] Comment on above: Order Comment: Speci men Type: BLOOD SPECIMENOrdering Facility: [facility] Address: [address] [place] [address] Performed By: #### 2 4323-8 ####[facility] LABCLIA [id number] [place] [address] Chloride [Moles/Vol] 107 mmol/L Normal 98-107 [facility] Comment on above: Order Comment: Speci men Type: BLOOD SPECIMENOrdering Facility: [facility] Address: [address] [place] [address] Performed By: #### 2 4323-8 ####[facility] LABCLIA [id number] [place] [address] CO2 [Moles/Vol] 27 mmol/L Normal 22-30 [facility] Comment on above: Order Comment: Speci men Type: BLOOD SPECIMENOrdering Facility: [facility] Address: [address] [place], [place] [id number] Performed By: #### 2 4323-8 ####[facility] LABCLIA [id number] [place] [address] Creatinine [Mass/Vol] 0.68 mg/dL Normal 0.58-0.96 [facility] Comment on above: Order Comment: Speci men Type: BLOOD SPECIMENOrdering Facility: [facility] Address: [address] [place] [address] Performed By: #### 2 4323-8 ####[facility] LABCLIA [id number] [place] [address] Creatinine and Glomerular filtration rate.predicted panel (S/P/Bld) 117 mL/min/1.73m??? Normal >=60 [facility] Comment on above: Order Comment: Speci men Type: BLOOD SPECIMENOrdering Facility: [facility] Address: [address] [place], [place] [address] Result Comment: Brenda mated Glomerular Filtration Rate [...] accurately reflect actual GFR. Performed By: #### 2 4323-8 ####[facility] LABCLIA [id number] [place] [address] Glucose [Mass/Vol] 98 mg/dL Normal 74-99 [facility] Comment on above: Order Comment: [place] valencia Type: BLOOD SPECIMENOrdering Facility: [facility] Address: [address] [place], [place] [address] Result Comment: The [place] Diabetes Association (ADA) provides guidance for cutoff [...] Standards of Medical Care in Diabetes 2016, [place] Diabetes Association. Diabetes Care. 2016.39(Suppl 1). Performed By: #### 2 4323-8 ####[facility] LABCLIA [id number] [place] [address] Potassium [Moles/Vol] 4.5 mmol/L Normal 3.7-5.1 [facility] Comment on above: Order Comment: Speci men Type: BLOOD SPECIMENOrdering Facility: [facility] Address: [address] [place] [address] Performed By: #### 2 4323-8 ####[facility] LABCLIA [id number] [place] [address] Protein [Mass/Vol] 7.3 g/dL Normal 6.3-8.0 [facility] Comment on above: Order Comment: Speci men Type: BLOOD SPECIMENOrdering Facility: [facility] Address: [address] [place] [address] Performed By: #### 2 4323-8 ####[facility] LABCLIA [id number] [place] [address] Sodium [Moles/Vol] 142 mmol/L Normal 136-144 [facility] Comment on above: Order Comment: Speci men Type: BLOOD SPECIMENOrdering Facility: [facility] Address: [address] [place] [address] Performed By: #### 2 4323-8 ####[facility] LABCLIA [id number] [place] [address] Urea nitrogen [Mass/Vol] 10 mg/dL Normal 7-21 [facility] Comment on above: Order Comment: Speci men Type: BLOOD SPECIMENOrdering Facility: [facility] Address: [address] [place] [address] Performed By: #### 2 4323-8 ####[facility] LABCLIA [id number] [place] [address] HCV Ab Ser Qlon 02-25-2024 HCV Ab Ql (S) Negative Normal Negative [facility] Comment on above: Order Comment: Speci men Type: BLOOD SPECIMENOrdering Facility: [facility] Address: [address] [place] [address] Result Comment: The result suggests no evidence of active infection with Hepatitis C virus. Should recent infection be suspected, repeat testing may be considered 4-6 weeks after this draw. Performed By: #### 1 6128-1 ####[facility] LABCLIA [id number] [place] [address] [place] HIV 1+2 Ab IA Qlon 4 HIV 1 and 2 Ab IA.rapid Nom (S/P/Bld) Normal [facility] Comment on above: Order Comment: Speci men Type: BLOOD SPECIMENOrdering Facility: [facility] Address: [address] [place] [address] Result Comment: Test not indicated. Performed By: #### 3 1201-7 ####[facility] LABCLIA [id number] [place] [address] [place] HIV 1+2 Ab+HIV1 p24 Ag IA Ql Non-Reactive Normal Nonreactive [facility] Comment on above: Order Comment: Speci men Type: BLOOD SPECIMENOrdering Facility: [facility] Address: [address] [place] [address] Performed By: #### 3 1201-7 ####[facility] LABIA [id number] [place] [address] [place] HIV immunoassay testing algorithm interpretation (S/P/Bld) [Interp] Normal [facility] Comment on above: Order Comment: Speci men Type: BLOOD SPECIMENOrdering Facility: [facility] Address: [address] [place] [address] Result Comment: No e vidence of HIV-1 or HIV-2 infection. Should recent infection be suspected, repeat testing may be considered 2-3 weeks after this draw. [place] Rev. Code 3701.243(E): This information has been disclosed to you from confidential records protected from disclosure by state law. ???You shall make no further disclosure of this information without the specific, written, and informed release of the individual to whom it pertains or as otherwise permitted by state law. A general authorization for the release of medical or other information is not sufficient for the purpose of the release of HIV test results or diagnoses. Performed By: #### 3 1201-7 ####[facility] LABCLIA [id number] [address] [place] HbA1c (Bld)on 02-25-2024 Average glucose Estimated from glycated hemoglobin (Bld) [Mass/Vol] 111 mg/dL Normal [facility] Comment on above: Order Comment: Speci men Type: BLOOD SPECIMENOrdering Facility: [facility] Address: [address] [place] [address] Result Comment: eAG: (Estimated average glucose) is a calculated value from HgbA1c and is car sales representative of the average blood glucose level in the last 2-3 month period. Performed By: #### 5 5454-3 ####[facility] LABIA [id number] [address] [place] [facility] HbA1c (Bld) [Mass fraction] 5.5 % Normal 4.3-5.6 [facility] Comment on above: Order Comment: Speci men Type: BLOOD SPECIMENOrdering Facility: [facility] Address: [address] [place] [address] Result Comment: [place] Diabetes Association guidelines indicate that patients with HgbA1c in the range 5.7-6.4% are at increased risk for development of diabetes, and intervention by lifestyle modification may be beneficial. HgbA1c greater or equal to 6.5% is considered diagnostic of diabetes. Performed By: #### 5 5454-3 ####[facility] LABIA [id number] [place] [address] [place] Lipid 1996 panelon Cholesterol [Mass/Vol] 142 mg/dL Normal <200 [facility] Comment on above: Order Comment: Speci men Type: BLOOD SPECIMENOrdering Facility: [facility] Address: [address] [place] [address] Result Comment: <200 mg/dL, Desirable 200-239 mg/dL, Borderline high >239 mg/dL, High Performed By: #### 2 4331-1 ####[facility] LABCLIA [id number] [address] LABCLIA [id number] [place] [address] Cholesterol in HDL [Mass/Vol] 72 mg/dL Normal >39 [facility] Comment on above: Order Comment: Speci men Type: BLOOD SPECIMENOrdering Facility: [facility] Address: [address] [place] [address] Result Comment: 40-5 9 mg/dL, Acceptable >59 mg/dL, High: Negative risk factor for coronary heart disease <40 mg/dL, Low: Positive risk factor for coronary heart disease Performed By: #### 2 4331-1 ####[facility] LABCLIA [id number] [address] LABCLIA [id number] [place] [address] Cholesterol in LDL [Mass/Vol] 60 mg/dL Normal <100 [facility] Comment on above: Order Comment: Speci men Type: BLOOD SPECIMENOrdering Facility: [facility] Address: [address] [place] [address] Result Comment: <100 mg/dL, Optimal 100-129 mg/dL, Near optimal/above optimal 130-159 mg/dL, Borderline high 160-189 mg/dL, High >189 mg/dL, Very high Secondary prevention optimal LDL Cholesterol levels are recommended to be < 70 mg/dL Performed By: #### 2 4331-1 ####[facility] LABCLIA [id number] [address] LABCLIA [id number] [place] [address] Cholesterol in LDL/Cholesterol in HDL [Mass ratio] 0.83 {ratio} Normal <2.54 [facility] Comment on above: Order Comment: Cecili men Type: BLOOD SPECIMENOrdering Facility: [facility] Address: [address] [place] [address] Result Comment: Eric kasper: 1. National Cholesterol Education Program ATP III Guideline At-A-Glance Quick Desk Reference: National Heart, Lung, and Blood [place]. National Institutes of Health. 2001: NIH Publication No. 01-3305. 2. An International Atherosclerosis Society position paper: global recommendations for the management of dyslipidemia: executive summary, Atherosclerosis. 2014: 232(2):410-413. Performed By: #### 2 4331-1 ####[facility] LABCLIA [id number] [address] LABCLIA [id number] [place] [address] Cholesterol in VLDL [Mass/Vol] 10 mg/dL Normal <30 [facility] Comment on above: Order Comment: Cecili men Type: BLOOD SPECIMENOrdering Facility: [facility] Address: [address] [place] [address] Performed By: #### 2 4331-1 ####[facility] LABCLIA [id number] [address] LABCLIA [id number] [place] [address] Cholesterol non HDL [Mass/Vol] 70 mg/dL Normal <130 [facility] Comment on above: Order Comment: Cecili men Type: BLOOD SPECIMENOrdering Facility: [facility] Address: [address] [place] [address] Result Comment: <130 mg/dL, Optimal 130-159 mg/dL, Near optimal/above optimal 160-189 mg/dL, Borderline high 190-219 mg/dL, High >219 mg/dL, Very high Secondary prevention optimal non HDL Cholesterol levels are recommended to be <100 mg/dL Performed By: #### 2 4331-1 ####[facility] LABCLIA [id number] [address] [address] [facility] LABCLIA [id number] [place] [address] Cholesterol.total/Cho lesterol in HDL [Mass ratio] 1.97 {ratio} Normal <5.10 [facility] Comment on above: Order Comment: Speci men Type: BLOOD SPECIMENOrdering Facility: [facility] Address: [address] [place] [address] Performed By: #### 2 4331-1 ####[facility] LABCLIA [id number] [address] LABCLIA [id number] [place] [address] FASTING TIME 12 hrs Normal [facility] Comment on above: Order Comment: Speci men Type: BLOOD SPECIMENOrdering Facility: [facility] Address: [address] [place] [address] Performed By: #### 2 4331-1 ####[facility] LABCLIA [id number] [address] LABCLIA [id number] [place] [address] Triglyceride [Mass/Vol] 51 mg/dL Normal <150 [facility] Comment on above: Order Comment: Speci men Type: BLOOD SPECIMENOrdering Facility: [facility] Address: [address] [place], [place] [address] Result Comment: <150 mg/dL, Normal 150-199 mg/dL, Borderline high 200-499 mg/dL, High >499 mg/dL, Very high Performed By: #### 2 4331-1 ####[facility] LABCLIA [id number] [place] [address] [facility] LABCLIA [id number] [place] [address] CBC with Diffon 01-13-2024 Abs. Basophil 0.08 k/uL Normal 0.00-0.20 [facility] Comment on above: Performed By: #### ALFONSO PFEIFFER, CDP #### [facility] [employer] [address] [place] [address] Data Center Project Manager: Harpal Adair MD Abs.Imm.Granulocyte 0.05 k/uL Normal 0.00-0.30 [facility] Comment on above: Performed By: #### ALFONSO PFEIFFER, CDP #### [facility] [employer] [address] [place] [address] Data Center Project Manager: Hrapal Adair MD Abs.Neutrophil (Seg) 7.68 k/uL Normal 1.50-8.10 [facility] Comment on above: Performed By: #### ALFONSO PFEIFFER, CDP #### [address] [address] Data Center Project Manager: Harpal Adair MD Basophils/100 WBC (Bld) 1 % Normal 0-2 [facility] Comment on above: Performed By: #### ALFONSO PFEIFFER, CDP #### [address] [address] Data Center Project Manager: Harpal Adair MD Eosinophils (Bld) [#/Vol] 0.25 10*3/uL Normal 0.00-0.44 [facility] Comment on above: Performed By: #### ALFONSO PFEIFFER, CDP #### [facility] [employer] [address] [place] [address] Data Center Project Manager: Harpal Adair MD Eosinophils/100 WBC (Bld) 2 % Normal 1-4 [facility] Comment on above: Performed By: #### ALFONSO PFEIFFER, CDP #### [facility] [employer] [address] [place] [address] Data Center Project Manager: Harpal Adair MD Erythrocyte distribution width (RBC) [Ratio] 18.6 % High 11.8-14.4 [facility] Comment on above: Performed By: #### ALFONSO PFEIFFER, CDP #### [address] [address] Data Center Project Manager: Harpal Adair MD Hematocrit (Bld) [Volume fraction] 36.7 % Normal 36.3-47.1 [facility] Comment on above: Performed By: #### ALFONSO PFEIFFER, CDP #### [facility] [employer] [address] [place] [address] Data Center Project Manager: Harpal Adair MD Hemoglobin (Bld) [Mass/Vol] 11.3 g/dL Low 11.9-15.1 [facility] Comment on above: Performed By: #### ALFONSO PFEIFFER, CDP #### [address] [address] Data Center Project Manager: Harpal Adair MD Immature granulocytes/100 WBC (Bld) 0 % Normal 0 [facility] Comment on above: Performed By: #### ALFONSO PFEIFFER, CDP #### [address] [address] [employer] Center Project Manager: Harpal Adair MD Lymphocytes (Bld) [#/Vol] 2.30 10*3/uL Normal 1.10-3.70 [facility] Comment on above: Performed By: #### ALFONSO PFEIFFER, CDP #### [facility] [employer] [address] [place] [address] Data Center Project Manager: Harpal Adair MD Lymphocytes/100 WBC (Bld) 21 % Low 24-43 [facility] Comment on above: Performed By: #### ALFONSO PFEIFFER, CDP #### [facility] [employer] [address] [place] [address] Data Center Project Manager: Harpal Adair MD MCH (RBC) [Entitic mass] 28.4 pg Normal 25.2-33.5 [facility] Comment on above: Performed By: #### ALFONSO PFEIFFER, CDP #### [address] [address] Data Center Project Manager: Harpal Adair MD MCHC (RBC) [Mass/Vol] 30.8 g/dL Normal 28.4-34.8 [facility] Comment on above: Performed By: #### ALFONSO PFEIFFER, CDP #### [address] [address] Data Center Project Manager: Harpal Adair MD MCV (RBC) [Entitic vol] 92.2 fL Normal 82.6-102.9 [facility] Comment on above: Performed By: #### ALFONSO PFEIFFER, CDP #### [address] [address] Data Center Project Manager: Harpal Adair MD Monocytes (Bld) [#/Vol] 0.77 10*3/uL Normal 0.10-1.20 [facility] Comment on above: Performed By: #### ALFONSO PFEIFFER, CDP #### [address] [address] Data Center Project Manager: Harpal Adair MD Monocytes/100 WBC (Bld) 7 % Normal 3-12 [facility] Comment on above: Performed By: #### ALFONSO PFEIFFER, CDP #### [address] [address] [employer] Center Project Manager: Harpal Adair MD Neutrophil (Seg) 69 % High 36-65 [facility] Comment on above: Performed By: #### ALFONSO PFEIFFER, CDP #### [address] [address] Data Center Project Manager: Harpal Adair MD NRBC Automated 0.0 per 100 WBC Normal 0.0 [facility] Comment on above: Performed By: #### ALFONSO PFEIFFER, CDP #### [facility] [employer] [facility] [place] [address] Data Center Project Manager: Harpal Adair MD Platelet mean volume (Bld) [Entitic vol] 11.4 fL Normal 8.1-13.5 [facility] Comment on above: Performed By: #### ALFONSO PFEIFFER, CDP #### [facility] [employer] [address] [place] [address] Data Center Project Manager: Harpal Adair MD Platelets (Bld) [#/Vol] 387 10*3/uL Normal 138-453 [facility] Comment on above: Performed By: #### ALFONSO PFEIFFER, CDP #### [facility] [employer] [address] [place] [address] Data Center Project Manager: Harpal Adair MD RBC (Bld) [#/Vol] 3.98 10*6/uL Normal 3.95-5.11 [facility] Comment on above: Performed By: #### ALFONSO PFEIFFER, CDP #### [facility] [employer] [address] [place] [address] Data Center Project Manager: Harpal Adair MD RBC morphology finding Nom (Bld) ANISOCYTOSIS PRESENT Normal [facility] Comment on above: Performed By: #### ALFONSO PFEIFFER, CDP #### [facility] [employer] [address] [place] [address] Data Center Project Manager: Harpal Adair MD WBC (Bld) [#/Vol] 11.1 10*3/uL Normal 3.5-11.3 [facility] Comment on above: Performed By: #### ALFONSO PFEIFFER, CDP #### [facility] [employer] [address] [place] [address] Data Center Project Manager: Harpal Adair MD Ferritinon 01-13-2024 Ferritin [Mass/Vol] 9 ng/mL Low 13-150 [facility] Comment on above: Result Comment: FERRITIN Reference Ranges: Adult Males 20 - 60 years: 30 - 400 ng/mL Adult females 17 - 60 years: 13 - 150 ng/mL Adults greater than 60 years: no established reference range Pediatrics: no established reference range Performed By: #### ALFONSO PFEIFFER, CDP #### [facility] [address] [place] [address] Data Center Project Manager: Harpal Adair MD Iron Binding Cap.on 01-13-20 24 % Fe Saturation 9 % Low 20-55 [facility] Comment on above: Performed By: #### ALFONSO PFEIFFER, CDP #### [facility] [address] [place] [address] Data Center Project Manager: Harpal Adair MD Iron [Mass/Vol] 37 ug/dL Normal 37-145 [facility] Comment on above: Performed By: #### ALFONSO PFEIFFER, CDP #### [facility] [address] [place] [address] Data Center Project Manager: Harpal Adair MD Total Fe Binding Cap 390 ug/dL Normal 250-450 [facility] Comment on above: Performed By: #### ALFONSO PFEIFFER, CDP #### [facility] [address] [place] [address] Data Center Project Manager: Harpal Adair MD Unbound Fe Bind Cap 353 ug/dL High 112-347 [facility] Comment on above: Performed By: #### ALFONSO PFEIFFER, CDP #### [facility] [address] [place] [address] Data Center Project Manager: MD Ernesto Naylor 01-05-2024 [facility] Telephone ([facility]) -------- SHAZIA CHOU ([id number]) 1990 F Date Time Provider Department 01/05/24 ELIA BAIRES [facility] During your visit today, we recorded the following information about you: Allergies As of Date: 01/05/2024 Noted Allergy Reaction ARIPIPRAZOLE 08/19/2022 1 - Mental Status Change 14 - Other: See Comments 16 - Unknown BUPROPION 07/16/2021 16 - Unknown COCONUT 11/20/2022 7 - Swelling Date Reviewed: 01/04/2024 Reviewed by: Madeline Teixeira MA - Fully Assessed Primary Visit Diagnosis:Panic disorder [F41.0] Order(s):clonazePAM (KLONOPIN) 0.5 mg tabletTake 1 tablet by mouth two times a day as needed for anxiety (Panic attacks) for up to 30 days.Disp: 60 tabletRfl: 0 Prescriptions as of 01/05/2024 - clonazePAM (KLONOPIN) 0.5 mg tablet Take 1 tablet by mouth two times a day as needed for anxiety (Panic attacks) for up to 30 days. - varenicline (CHANTIX) 0.5 mg (11)- 1 mg (42) tablet TAKE 1 TABLET BY MOUTH DIRECTED PER PACKAGE INSTRUCTIONS - SEMAGLUTIDE SUBCUTANEOUS Inject subcutaneously. - traZODone (DESYREL) 50 mg tablet Take 50 mg by mouth daily at bedtime. - acetaZOLAMIDE (DIAMOX) 250 mg tablet Take 250 mg by mouth. - brexpiprazole (REXULTI) 4 mg tablet Take by mouth once daily. - DULoxetine (CYMBALTA) 60 mg capsule Take 60 mg by mouth once daily. - nilqquuvcpjp-kpn-zfkz-FA -vit K (BARIATRIC MULTIVITAMINS) 45 mg iron- 800 mcg-120 mcg cap Take by mouth. - calcium citrate-vitamin D3 500 mg-12.5 mcg /5 gram powd Take by mouth. Problem List As Of Date 01/05/2024 Noted Resolved POOR GRTH-ANTEPART [O36.5990] 07/03/2008 Idiopathic intracranial hypertension [G93.2] 11/20/2022 Primary hypertension [I10] 11/20/2022 Depression [F32.A] 11/20/2022 Hx of gastric bypass [Z98.84] 11/20/2022 H/O foot surgery [Z98.890] 11/20/2022 Bipolar affective disorder in remission (HCC) [*06/10/2023 Obesity, Class III, BMI 40-49.9 (morbid obesity*08/31/2023 01/04/2024 Borderline personality disorder (HCC) [F60.3] 01/04/2024 Chronic alcoholism in remission (HCC) [F10.21] 01/04/2024 Prescriptions ordered this encounter Disp Refills Start End CLONAZEPAM 0.5 MG TABLET 60 t* 0 01/05/2024 02/04/2024 Route: ORAL Sig: Take 1 tablet by mouth two times a day as needed for anxiety (Panic attacks) for up to 30 days. Encounter Status:Closed by ELIA BAIRES on 01/05/24 Normal [facility] TOXICOLOGY SCRN W/CONF,URINE on 01-05-2024 Amphetamines Confirm (U) [Mass/Vol] Negative Negative [facility] Comment on above: Cutoff threshold at 1000 ng/mL. Barbiturates Urine Negative Negative [facility] Comment on above: Cutoff threshold at 200 ng/mL. Benzodiazepines Urine Negative Negative [facility] Comment on above: Cutoff threshold at 200 ng/mL. Cannabinoids Screen Ql (U) Sent for confirmation Abnormal Negative [facility] Comment on above: Cutoff threshold at 50 ng/mL. Cocaine Ql (U) Negative Negative [facility] Comment on above: Cutoff threshold at 300 ng/mL. Ethanol (U) [Mass/Vol] mg/dL NINF - 11 mg/dL [facility] Interpretation and review of laboratory results Abnormal [facility] Opiates Screen Ql (U) Negative Negative [facility] Comment on above: Cutoff threshold at 300 ng/mL. oxyCODONE cutoff Screen (U) [Mass/Vol] Negative Negative [facility] Comment on above: Cutoff threshold at 100 ng/mL. Phencyclidine Ql (U) Negative Negative [facility] Comment on above: Cutoff threshold at 25 ng/mL. Immunoassay screen o nly. Cross reactivity with other substances can occur with immunoassay screening. Detection of any drug(s) in this urine toxicology panel is presumptive only. These tests are for medical purposes only and should not be used for compliance monitoring, legal, or forensic use. [facility] CANNABINOID CONF, URon 01-03 Cannabinoids Confirm (U) [Mass/Vol] 153 ng/mL High <16 [facility] Comment on above: Order Comment: Speci men Type: URINE SPECIMENOrdering Facility: [facility] Address: [address] [place] [address] Result Comment: Tetr ahydrocannabinol carboxylic acid (THCA) is a metabolite of wjsxj-0-shjzbojaunkxlokwwunj which is the main active component of marijuana. Presence of THCA indicates use of marijuana. Performed By: #### C ANNCONFU ####[facility] [id number] [address] [place] ([facility]) Normal [facility] Comment on above: Order Comment: Speci men Type: URINE SPECIMENOrdering Facility: [facility] Address: [address] [place] [address] Result Comment: This test is for medical use only. This test was developed and its performance characteristics determined by [facility]'s [facility] [place] ([facility] It has not been cleared or approved by the FDA. [facility] is regulated under CLIA as qualified to perform high-complexity testing. This test is used for clinical purposes. It should not be regarded as investigational or for research. Performed By: #### C ANNCONFU ####[facility] [id number] [address] [place] CNOVon 01-04-2024 CNOV Office Visit (FPNRMO C) -------- SHAZIA CHOU ([id number]) 1990 F Date Time Provider Department 01/04/24 9:20 AM ELIA BAIRESNRMOC During your visit today, we recorded the following information about you: Pulse Blood pressure Weight Height 92/minute 123/86 92.5 kg 1.702 m Elia Baires, 01/04/2024 2:25 PM Signed ASSESSMENT/PLAN: 1. Panic disorder - ICD9: 300.01, ICD10: F41.0 (primary diagnosis) 2. Borderline personality disorder (HCC) - ICD9: 301.83, ICD10: F60.3 3. Bipolar affective disorder in remission (HCC) - ICD9: 296.80, ICD10: F31.70 -New patient here to establish care and see temporary treatment for her anxiety. She has severe anxiety and agoraphobia which is interfering with her ability to go to work and maintain her job. She is planning on establishing with a new psychiatrist on 01/21, however she has tried both hydroxyzine and buspirone for her anxiety without much success. Discussed that I could do a prescription for clonazepam 0.5 mg twice daily as needed until she can establish with a new psychiatrist. She agreed to a urine drug screen but noted that it will be positive for cannabis and the lorazepam she recently received in the emergency department. Can fill prescription if negative for all other drugs. Continue duloxetine 60 mg twice daily and Rexulti 4 mg and trazodone 50 mg at bedtime. - TOXICOLOGY SCRN W/CONF,URINE 4. Chronic alcoholism in remission (HCC) - ICD9: 303.93, ICD10: F10.21 -Endorses history of alcoholism but this has been controlled for over a year. She does do occasional Vivitrol injections and can have a drink afterwards without drinking to excess. Continue current regimen. 5. Routine health maintenance - ICD9: V70.0, ICD10: Z00.00 -Ordered labs in anticipation of physical. Follow-up in 4 to 6 weeks. - COMPLETE BLOOD COUNT - COMPREHENSIVE METABOLIC PANEL - HEMOGLOBIN A1C - LIPID PANEL BASIC - HIV 1/2 COMBO WITH REFLEX TO DIFFERENTIATION - HEPATITIS C ANTIBODY IA WITH CONFIRMATION CC: Patient presents with: Establish Care: Panic attacks , SOB ( Chest tightness ) HPI: Shazia is a 33 year old female that presents with panic disorder. Patient here to establish care and seek treatment for her anxiety. She has a past medical history of bipolar affective disorder, borderline personality disorder, severe anxiety and panic disorder, agoraphobia, intracranial hypertension, obesity status post Tian-en-Y, alcohol use in remission. She says that she is originally from [facility] however came up to here today to establish with new physician due to feeling that her psychiatric needs were not being met by her current provider. She says that she has had worsening anxiety and panic attacks for the last 2 years since the of her grandmother and her parents. She says that she has daily panic attacks and often has associated chest pain. She went to the emergency room on multiple occasions and has been given benzodiazepines which have helped. However her current PCP is unwilling to prescribe these. She says that she has tried hydroxyzine and buspirone. Hydroxyzine was not effective and BuSpar caused severely elevated blood pressures. She says that pain attacks are so severe that she is unable to leave the house many days in has missed work. She is planning to establish with a new psychiatrist at [facility] in [place]. She also sees a counselor weekly. Current medication regimen is duloxetine 60 mg twice daily, Rexulti 4 mg daily, trazodone 50 mg nightly. She denies use of illegal drugs. Says that she was prescribed lorazepam at her recent ED visit. She also endorses use of cannabis. Hx of intracranial hypertension-she has history of intracranial hypertension. Follows with neurology. Typically only has symptoms in the fall at which time she takes acetazolamide 200 mg daily. Obesity-she has a history of Tian-en-Y. He was recently also prescribed compounded semaglutide. Currently taking 0.5 mg dose weekly. ROS: See HPI History: Medical history, surgical history, social history and allergies were reviewed and updated in the system. PHYSICAL EXAM: BP 123/86 Pulse 92 Ht 5' 7 (1.70m) Wt 204 lb 0.6 oz (92.6kg) SpO2 97% LMP 10/23/2022 BMI 31.95 kg/(m2). General Appearance: Well appearing, alert, in no acute distress, well-hydrated, well nourished.. Lungs: Lungs clear to auscultation. No wheezing, rhonchi, rales.. Heart: RRR without murmur, gallop, or rubs. No ectopy. Psych: Moderately anxious with congruent affect. Pleasant demeanor. Not denies severe depression or SI/HI. No psychosis or maryam. Dr. Elia Baires, Elia Perez DO 01/04/2024 10:16 AM Signed 1) Give urine sample today. 2) Placed lab orders. Fast for 12 hours then get labs. 3) I would follow-up with your psychiatrist in January 4) Physical in 1 (more content not included)... Normal [facility] SPECIMEN VALIDITY, URINEon 0 01-04-2024 CHROMATE,URINE <10 Normal <50 [facility] Comment on above: Order Comment: Speci men Type: URINE SPECIMENOrdering Facility: [facility] Address: [address] [place] [address] Performed By: #### L [id number] ####[facility] [id number] [place] [address] [place] CREATININE,URINE 33.7 mg/dL Normal 20.0-300.0 [facility] Comment on above: Order Comment: Speci men Type: URINE SPECIMENOrdering Facility: [facility] Address: [address] [place] [address] Performed By: #### L [id number] ####[facility] [id number] [place] [address] [place] NITRITES,URINE <50 Normal <500 [facility] Comment on above: Order Comment: Speci men Type: URINE SPECIMENOrdering Facility: [facility] Address: [address] [place] [address] Performed By: #### L [id number] ####[facility] [id number] [place] [address] [place] OXIDANTS,URINE 70 mg/L Normal <200 [facility] Comment on above: Order Comment: Speci men Type: URINE SPECIMENOrdering Facility: [facility] Address: [address] [place] [address] Performed By: #### L [id number] ####[facility] [id number] [place] [address] [place] pH (U) 5.6 [pH] Normal 4.5-8.0 [facility] Comment on above: Order Comment: Speci men Type: URINE SPECIMENOrdering Facility: [facility] Address: [address] [place] [address] Performed By: #### L [id number] ####[facility] [id number] [place] [address] [place] SPEC GRAVITY,UR 1.019 Normal 1.003-1.035 [facility] Comment on above: Order Comment: Speci men Type: URINE SPECIMENOrdering Facility: [facility] Address: [address] [place] [address] Performed By: #### L [id number] ####[facility] [id number] [place] [address] [place] SPECIMEN VALIDITY QUALITY Specimen quality results within acceptable limits Normal [facility] Comment on above: Order Comment: Speci men Type: URINE SPECIMENOrdering Facility: [facility] Address: [address] [place] [address] Performed By: #### L [id number] ####[facility] [id number] [place] [address] [place] TOXICOLOGY SCRN W/CONF,URINE on 01-04-2024 Amphetamines Confirm (U) [Mass/Vol] Negative Normal Negative [facility] Comment on above: Order Comment: Speci men Type: URINE SPECIMENOrdering Facility: [facility] Address: [address] [place] [address] Result Comment: Cuto ff threshold at 1000 ng/mL. Performed By: #### U TOXRF ####[facility] [id number] [place] [address] [place] BARBITURATES, URINE Negative Normal Negative [facility] Comment on above: Order Comment: Speci men Type: URINE SPECIMENOrdering Facility: [facility] Address: [address] [place] [address] Result Comment: Cuto ff threshold at 200 ng/mL. Performed By: #### U TOXRF ####[facility] [id number] [place] [address] [place] BENZODIAZEPINES, UR Negative Normal Negative [facility] Comment on above: Order Comment: Speci men Type: URINE SPECIMENOrdering Facility: [facility] Address: [address] [place] [address] Result Comment: Cuto ff threshold at 200 ng/mL. Performed By: #### U TOXRF ####[facility] [id number] [place] [address] [place] Cannabinoids Screen Ql (U) Sent for confirmation Abnormal Negative [facility] Comment on above: Order Comment: Speci men Type: URINE SPECIMENOrdering Facility: [facility] Address: [address] [place] [address] Result Comment: Cuto ff threshold at 50 ng/mL. Performed By: #### U TOXRF ####[facility] [id number] [place] [address] [place] Cocaine Ql (U) Negative Normal Negative [facility] Comment on above: Order Comment: Speci men Type: URINE SPECIMENOrdering Facility: [facility] Address: [address] [place] [address] Result Comment: Cuto ff threshold at 300 ng/mL. Performed By: #### U TOXRF ####[facility] [id number] [place] [address] [place] Ethanol (U) [Mass/Vol] <11 Normal <11 [facility] Comment on above: Order Comment: Speci men Type: URINE SPECIMENOrdering Facility: [facility] Address: [address] [place] [address] Performed By: #### U TOXRF ####[facility] [id number] [place] [address] [place] Opiates Screen Ql (U) Negative Normal Negative [facility] Comment on above: Order Comment: Speci men Type: URINE SPECIMENOrdering Facility: [facility] Address: [address] [place] [address] Result Comment: Cuto ff threshold at 300 ng/mL. Performed By: #### U TOXRF ####[facility] [id number] [place] [address] [place] oxyCODONE cutoff Screen (U) [Mass/Vol] Negative Normal Negative [facility] Comment on above: Order Comment: Speci men Type: URINE SPECIMENOrdering Facility: [facility] Address: [address] [place] [address] Result Comment: Cuto ff threshold at 100 ng/mL. Performed By: #### U TOXRF ####[facility] [id number] [place] [address] [place] Phencyclidine Ql (U) Negative Normal Negative [facility] Comment on above: Order Comment: Speci men Type: URINE SPECIMENOrdering Facility: [facility] Address: [address] [place] [address] Result Comment: Cuto ff threshold at 25 ng/mL. Performed By: #### U TOXRF ####[facility] [id number] [place] [address] [place] ECG 12 lead ECGon 12-31-2023 ECG 12 lead ECG [place] [address] Electrocardiograph Report Signed Patient: Shazia Chou MR#: [id number] : 1990 Acct:[id number] Age/Sex: 33 / F ADM Date: 12/31/23 Loc: ER Room: Type: [facility] ER Attending Dr: Ordering Provider: Kenny Javed APRN Date of Service: 12/31/23 ECG/ECG 12 lead ECG: Psychiatric Symptoms Copies to: Test Reason : Blood Pressure : 138/073 mmHG Vent. Rate : 076 BPM Atrial Rate : 073 BPM P-R Int : 112 ms QRS Dur : 072 ms QT Int : 354 ms P-R-T Axes : 031 065 049 degrees QTc Int : 398 ms Undetermined rhythm Otherwise normal ECG When compared with ECG of 10-DEC-2023 10:54, Current undetermined rhythm precludes rhythm comparison, needs review Confirmed by JULES JANSEN DO ([id number]) on 01/01/2024 6:11:00 AM Referred By: Electronically Signed By:JULES JANSEN DO Transcribed By: MUS Signed By Jules Jansen DO 12/31 0611 Normal [facility] ED Noteon 2023 ED Note [id number] F Normal [facility] Activated partial thrombopla stin time (aPTT) in platelet poor plasma by coagulation aOrdered By: Marii Christiansen on 12-10-2023 aPTT Coag (PPP) [Time] 28.8 s 25.1-36.5 [facility] Comment on above: A hematocrit value g reater than 55% may lead to inaccurate results in coagulation testing. Patients having hematocrit values >55% require a special collection tube for coagulation studies. Please contact the laboratory at [phone] for redraw instructions. B-Type Natriuretic Peptideon 12-10-2023 Natriuretic peptide B (Bld) [Mass/Vol] 12.0 pg/mL Normal 5-100 [facility] Comment on above: Result Comment: PERF ORMED BY: [place] [address] PATHOLOGIST LOKIE ENGINEER JOHNIE BOSS M.D. Performed By: #### H EPATIC, BMP, LIPASE, CBC #### [address] Basic Metabolic Panelon 11-13 Anion gap [Moles/Vol] 9.8 mmol/L Normal 6.0-15.0 [facility] Comment on above: Performed By: #### H EPATIC, BMP, LIPASE, CBC #### [facility] [address] Calcium [Mass/Vol] 9.3 mg/dL Normal 8.6-10.3 [facility] Comment on above: Performed By: #### H EPATIC, BMP, LIPASE, CBC #### [facility] [address] [place] [address] [place] Chloride [Moles/Vol] 108 mmol/L High 98-107 [facility] Comment on above: Performed By: #### H EPATIC, BMP, LIPASE, CBC #### [facility] [address] CO2 [Moles/Vol] 26.2 mmol/L Normal 21.0-31.0 [facility] Comment on above: Performed By: #### H EPATIC, BMP, LIPASE, CBC #### [address] Creatinine [Mass/Vol] 0.63 mg/dL Normal 0.60-1.20 [facility] Comment on above: Performed By: #### H EPATIC, BMP, LIPASE, CBC #### [facility] [address] [place] [address] [place] Creatinine Clr Calc Pharmacy 144.76 Normal [facility] Comment on above: Performed By: #### H EPATIC, BMP, LIPASE, CBC #### [place] [address] [place] GFR/1.73 sq M.predicted MDRD (S/P/Bld) [Vol rate/Area] mL/min/{1.73_m2} Normal [facility] Comment on above: Performed By: #### H EPATIC, BMP, LIPASE, CBC #### [address] Glucose [Mass/Vol] 84 mg/dL Normal 70-100 [facility] Comment on above: Result Comment: [place] Glucose Reference Range is dependent on time and content of last meal. Glucose of more than 200 mg/dL in a nonstressed, ambulatory subject supports the diagnosis of Diabetes Mellitus. ADA recommended reference range Performed By: #### H EPATIC, BMP, LIPASE, CBC #### [facility] [address] Potassium [Moles/Vol] 4.0 mmol/L Normal 3.5-5.1 [facility] Comment on above: Performed By: #### H EPATIC, BMP, LIPASE, CBC #### [facility] [address] Sodium [Moles/Vol] 140 mmol/L Normal 136-145 [facility] Comment on above: Performed By: #### H EPATIC, BMP, LIPASE, CBC #### [facility] [address] Urea nitrogen [Mass/Vol] 14 mg/dL Normal 7-25 [facility] Comment on above: Performed By: #### H EPATIC, BMP, LIPASE, CBC #### [facility] [address] Basophils Auto (Bld) [#/Vol] Ordered By: Marii Christiansen on 12-10-2023 Basophils (Bld) [#/Vol] 0.1 10*3/uL 0.0-0.2 [facility] Basophils/100 WBC Auto (Bld) Ordered By: Marii Christiansen on 12-10-2023 Basophils/100 WBC (Bld) 1.0 % . [facility] Calcium [Mass/volume] in Ser um or PlasmaOrdered By: Marii Christiansen on 12-10-2023 Calcium [Mass/Vol] 9.3 mg/dL 8.6-10.3 [facility] Carbon dioxide, total [Moles /volume] in Serum or PlasmaOrdered By: Marii Christiansen on 12-10-2023 CO2 [Moles/Vol] 26.2 mmol/L 21.0-31.[address] [facility] Chloride [Moles/volume] in S tushar or PlasmaOrdered By: Marii Christiansen on 12-10-2023 Chloride [Moles/Vol] 108 mmol/L 98-107 [facility] Choriogonadotropin.beta subu nit [Units/volume] in Serum or PlasmaOrdered By: Marii Christiansen on 12-10-2023 HCG.beta subunit Qn Negative [facility] Complete Blood Count Auto Di ffon 12-10-2023 Basophils (Bld) [#/Vol] 0.1 10*3/uL Normal 0.0-0.2 [facility] Comment on above: Result Comment: PERF ORMED BY: [place] [address] PATHOLOGIST LOKIE ENGINEER JOHNIE BOSS M.D. Performed By: #### H EPATIC, BMP, LIPASE, CBC #### [address] Basophils/100 WBC (Bld) 1.0 % Normal . [facility] Comment on above: Performed By: #### H EPATIC, BMP, LIPASE, CBC #### [address] Eosinophils (Bld) [#/Vol] 0.1 10*3/uL Normal 0.0-0.45 [facility] Comment on above: Performed By: #### H EPATIC, BMP, LIPASE, CBC #### [address] Eosinophils/100 WBC (Bld) 1.7 % Normal . [facility] Comment on above: Performed By: #### H EPATIC, BMP, LIPASE, CBC #### [address] Erythrocyte distribution width (RBC) [Ratio] 18.2 % High 11.9-15.3 [facility] Comment on above: Performed By: #### H EPATIC, BMP, LIPASE, CBC #### [address] Hematocrit (Bld) [Volume fraction] 34.4 % Normal 34.0-46.4 [facility] Comment on above: Performed By: #### H EPATIC, BMP, LIPASE, CBC #### [address] Hemoglobin (Bld) [Mass/Vol] 11.2 g/dL Low 11.8-15.4 [facility] Comment on above: Performed By: #### H EPATIC, BMP, LIPASE, CBC #### [address] Lymphocytes (Bld) [#/Vol] 1.6 10*3/uL Normal 1.00-4.8 [facility] Comment on above: Performed By: #### H EPATIC, BMP, LIPASE, CBC #### [address] Lymphocytes/100 WBC (Bld) 21.9 % Normal . [facility] Comment on above: Performed By: #### H EPATIC, BMP, LIPASE, CBC #### [address] MCH (RBC) [Entitic mass] 28.8 pg Normal 24.7-34.3 [facility] Comment on above: Performed By: #### H EPATIC, BMP, LIPASE, CBC #### [address] MCV (RBC) [Entitic vol] 88.7 fL Normal 80-100 [facility] Comment on above: Performed By: #### H EPATIC, BMP, LIPASE, CBC #### [address] Mean Corpuscular HGB Conc 32.5 g/dL Normal 32.0-35.0 [facility] Comment on above: Performed By: #### H EPATIC, BMP, LIPASE, CBC #### [address] Monocytes (Bld) [#/Vol] 0.5 10*3/uL Normal 0.0-0.8 [facility] Comment on above: Performed By: #### H EPATIC, BMP, LIPASE, CBC #### [address] Monocytes/100 WBC (Bld) 16.94 % Normal 0.00-20.00 [facility] Comment on above: Performed By: #### H EPATIC, BMP, LIPASE, CBC #### [place] [address] [place] Monocytes/100 WBC (Bld) 6.4 % Normal . [facility] Comment on above: Performed By: #### H EPATIC, BMP, LIPASE, CBC #### [address] Neutrophils (Bld) [#/Vol] 4.9 10*3/uL Normal 1.8-7.7 [facility] Comment on above: Performed By: #### H EPATIC, BMP, LIPASE, CBC #### [address] Neutrophils/100 WBC (Bld) 69.0 % Normal . [facility] Comment on above: Performed By: #### H EPATIC, BMP, LIPASE, CBC #### [address] NRBC% 0.1 /100{WBC} Normal 0-0.5 [facility] Comment on above: Performed By: #### H EPATIC, BMP, LIPASE, CBC #### [address] Platelet mean volume (Bld) [Entitic vol] 9.2 fL Normal 6.3-10.[address] [facility] Comment on above: Performed By: #### H EPATIC, BMP, LIPASE, CBC #### [place] [address] [place] Platelets (Bld) [#/Vol] 331 10*3/uL Normal 150-450 [facility] Comment on above: Performed By: #### H EPATIC, BMP, LIPASE, CBC #### [place] [address] [place] RBC (Bld) [#/Vol] 3.88 10*6/uL Normal 3.60-5.00 [facility] Comment on above: Performed By: #### H EPATIC, BMP, LIPASE, CBC #### [place] [address] [place] WBC (Bld) [#/Vol] 7.1 10*3/uL Normal 3.8-11.6 [facility] Comment on above: Performed By: #### H EPATIC, BMP, LIPASE, CBC #### [facility] [address] [place] [id number] [facility] Creatine Kinaseon 12-10-2023 CK [Catalytic activity/Vol] 90 U/L Normal 30 [facility] Comment on above: Performed By: #### H EPATIC, BMP, LIPASE, CBC #### [facility] [address] [place], [place] [id number] [facility] Creatine kinase [Enzymatic a ctivity/volume] in Serum or PlasmaOrdered By: Marii Christiansen on 12-10-2023 CK [Catalytic activity/Vol] 90 U/L 30- [facility] Creatinine [Mass/volume] in Serum or PlasmaOrdered By: Marii Christiansen on 12-10-2023 Creatinine [Mass/Vol] 0.63 mg/dL 0.60-1.20 [facility] ECG 12 lead ECGon 12-10-2023 ECG 12 lead ECG [facility] [place] [address] [place] [address] Electrocardiograph Report Signed Patient: Shazia Chou MR#: [id number] : 1990 Acct:[id number] Age/Sex: 32 / F ADM Date: 12/10/23 Loc: ER Room: Type: [facility] ER Attending Dr: Ordering Provider: Marii Christiansen [...] sinus rhythm Confirmed by Jaylon YANES DO ([id number]) on 12/10/2023 3:20:27 PM Referred By: Electronically Signed By:Jaylon YANES DO Transcribed By: MUS Signed By Jaylon Yanes DO 0 12/10/23 1520 Normal [facility] [facility] Eosinophils Auto (Bld) [#/Vo l]Ordered By: Marii Christiansen on 12-10-2023 Eosinophils (Bld) [#/Vol] 0.1 10*3/uL 0.0-0.45 [facility] Eosinophils/100 WBC Auto (Bl d)Ordered By: Marii Christiansen on 12-10-2023 Eosinophils/100 WBC (Bld) 1.7 % . [facility] Erythrocyte distribution wid th Auto (RBC) [Ratio]Ordered By: Marii Christiansen on 12-10-2023 Erythrocyte distribution width (RBC) [Ratio] 18.2 % 11.9-15.3 [facility] Free T4 (Free Thyroxine)on 0 12-10-2023 Free T4 [Mass/Vol] 0.82 ng/dL Normal 0.61-1.12 [facility] Comment on above: Performed By: #### H EPATIC, BMP, LIPASE, CBC #### [facility] [address] [id number] [place] Glucose [Mass/volume] in Ser um or PlasmaOrdered By: Marii Christiansen on 12-10-2023 Glucose [Mass/Vol] 84 mg/dL 70-100 [facility] Comment on above: ADA recommended refe rence rangeRandom Glucose Reference Range is dependent on time and content of last meal. Glucose of more than 200 mg/dL in a nonstressed, ambulatory subject supports the diagnosis of Diabetes Mellitus. HCG,Qualitative Serumon 11-13 HCG,Qualitative Serum Negative Normal [facility] Comment on above: Result Comment: PERF ORMED BY: [facility] [address] [place] [address] PATHOLOGIST LOKIE ENGINEER JOHNIE BOSS M.D. Performed By: #### H EPATIC, BMP, LIPASE, CBC #### [facility] [address] [id number] [place] Hematocrit Auto (Bld) [Volum e fraction]Ordered By: Marii Christiansen on 12-10-2023 Hematocrit (Bld) [Volume fraction] 34.4 % 34.0-46.4 [facility] Hemoglobin [Mass/volume] in BloodOrdered By: Marii Christiansen on 12-10-2023 Hemoglobin (Bld) [Mass/Vol] 11.2 g/dL 11.8-15.4 [facility] INR in Platelet poor plasma by Coagulation assayOrdered By: Marii Christiansen on 12-10-2023 INR Coag (PPP) [Relative time] 1.0 {INR} [facility] Comment on above: INR Therapeutic Rang e [...] RBC Auto (Bld) [#/Vol] 7.1 10*3/uL 3.8-11.6 [facility] Lymphocytes Auto (Bld) [#/Vo l]Ordered By: Marii Christiansen on 12-10-2023 Lymphocytes (Bld) [#/Vol] 1.6 10*3/uL 1.00-4.8 [facility] Lymphocytes/100 WBC Auto (Bl d)Ordered By: Marii Christiansen on 12-10-2023 Lymphocytes/100 WBC (Bld) 21.9 % . [facility] MCH Auto (RBC) [Entitic mass ]Ordered By: Marii Christiansen on 12-10-2023 MCH (RBC) [Entitic mass] 28.8 pg 24.7-34.3 [facility] MCHC Auto (RBC) [Mass/Vol]Or dered By: Marii Christiansen on 12-10-2023 MCHC (RBC) [Mass/Vol] 32.5 g/dL 32.0-35.0 [facility] MCV Auto (RBC) [Entitic vol] Ordered By: Marii Christiansen on 12-10-2023 MCV (RBC) [Entitic vol] 88.7 fL 80-100 [facility] Magnesiumon 12-10-2023 Magnesium [Mass/Vol] 1.9 mg/dL Normal 1.9-2.7 [facility] Comment on above: Performed By: #### H EPATIC, BMP, LIPASE, CBC #### [facility] [address] Magnesium [Mass/volume] in S tushar or PlasmaOrdered By: Marii Christiansen on 12-10-2023 Magnesium [Mass/Vol] 1.9 mg/dL 1.9-2.7 [facility] Monocyte distribution width [Entitic volume] in Blood by AutomatedOrdered By: Marii Christiansen on 12-10-2023 Monocyte distribution width Auto (Bld) [Entitic vol] 16.94 % 0.00-20.00 [facility] Monocytes Auto (Bld) [#/Vol] Ordered By: Marii Christiansen on 12-10-2023 Monocytes (Bld) [#/Vol] 0.5 10*3/uL 0.0-0.8 [facility] Monocytes/100 WBC Auto (Bld) Ordered By: Marii Christiansen on 12-10-2023 Monocytes/100 WBC (Bld) 6.4 % . [facility] Natriuretic peptide B [Mass/ Vol]Ordered By: Marii Christiansen on 12-10-2023 Natriuretic peptide B (Bld) [Mass/Vol] 12.0 pg/mL 5-100 [facility] Neutrophils Auto (Bld) [#/Vo l]Ordered By: Marii Christiansen on 12-10-2023 Neutrophils (Bld) [#/Vol] 4.9 10*3/uL 1.8-7.7 [facility] Neutrophils/100 WBC Auto (Bl d)Ordered By: Marii Christiansen on 12-10-2023 Neutrophils/100 WBC (Bld) 69.0 % . [facility] No Panel InformationOrdered By: Marii Christiansen on 12-10-2023 Estimated GFR (CKD-EPI) > 60.0 mL/Min [facility] Creatinine Clearance (Chem 144.76 [facility] Nucleated erythrocytes [Pres ence] in Blood by Automated countOrdered By: Marii Christiansen on 12-10-2023 Nucleated RBC Auto Ql (Bld) 0.1 /100{WBC} 0-0.5 [facility] Partial Thromboplastin Timeo n 12-10-2023 aPTT Coag (Bld) [Time] 28.8 s Normal 25.1-36.5 [facility] Comment on above: Result Comment: A he matocrit value greater than 55% may lead to inaccurate results in coagulation testing. Patients having hematocrit values >55% require a special collection tube for coagulation studies. Please contact the laboratory at [phone] for redraw instructions. PERFORMED BY: [place] [address] PATHOLOGIST LOKIE ENGINEER JOHNIE BOSS M.D. Performed By: #### H EPATIC, BMP, LIPASE, CBC #### [facility] [address] [id number] [facility] Phosphate [Mass/volume] in S tushar or PlasmaOrdered By: Marii Christiansen on 12-10-2023 Phosphate [Mass/Vol] 3.7 mg/dL 2.5-4.5 [facility] Phosphoruson 12-10-2023 Phosphate [Mass/Vol] 3.7 mg/dL Normal 2.5-4.5 [facility] Comment on above: Performed By: #### H EPATIC, BMP, LIPASE, CBC #### [facility] [address] [id number] [facility] Platelet mean volume Auto (B ld) [Entitic vol]Ordered By: Marii Christiansen on 12-10-2023 Platelet mean volume (Bld) [Entitic vol] 9.2 fL 6.3-10.7 [facility] Platelets Auto (Bld) [#/Vol] Ordered By: Marii Christiansen on 12-10-2023 Platelets (Bld) [#/Vol] 331 10*3/uL 150-450 [facility] Potassium [Moles/volume] in Serum or PlasmaOrdered By: Marii Christiansen on 12-10-2023 Potassium [Moles/Vol] 4.0 mmol/L 3.5-5.1 [facility] Prothrombin Time INRon 12-09 INR Coag (PPP) [Relative time] 1.0 {INR} Normal [facility] Comment on above: Result Comment: INR Therapeutic [...] #### H EPATIC, BMP, LIPASE, CBC #### [facility] [address] PT Coag (PPP) [Time] 11.3 s Normal 9.0-12.9 [facility] Comment on above: Result Comment: A he matocrit value greater than 55% may lead to inaccurate results in coagulation testing. Patients having hematocrit values >55% require a special collection tube for coagulation studies. Please contact the laboratory at [phone] for redraw instructions. Performed By: #### H EPATIC, BMP, LIPASE, CBC #### [facility] [address] [phone] [facility] Prothrombin time (PT)Ordered By: Marii Christiansen on 12-10-2023 PT Coag (PPP) [Time] 11.3 s 9.0-12.9 [facility] Comment on above: A hematocrit value g reater than 55% may lead to inaccurate results in coagulation testing. Patients having hematocrit values >55% require a special collection tube for coagulation studies. Please contact the laboratory at [phone] for redraw instructions. RBC Auto (Bld) [#/Vol]Ordere d By: Marii Christiansen on 12-10-2023 RBC (Bld) [#/Vol] 3.88 10*6/uL 3.60-5.00 [facility] Serum or plasma anion gap de terminationOrdered By: Marii Christiansen on 12-10-2023 Anion gap [Moles/Vol] 9.8 mmol/L 6.0-15.0 [facility] Sodium [Moles/volume] in Ser um or PlasmaOrdered By: Marii Christiansen on 12-10-2023 Sodium [Moles/Vol] 140 mmol/L 136-145 [facility] Thyroid Stimulating Hormoneo n 12-10-2023 TSH Qn 0.61 m[IU]/L Normal 0.45-5.[address] [facility] Comment on above: Performed By: #### H EPATIC, BMP, LIPASE, CBC #### [facility] [address] Thyrotropin [Units/volume] i n Serum or PlasmaOrdered By: Marii Christiansen on 12-10-2023 TSH Qn 0.61 m[IU]/L 0.45-5.33 [facility] Thyroxine (T4) free [Mass/vo lume] in Serum or PlasmaOrdered By: Marii Christiansen on 12-10-2023 Free T4 [Mass/Vol] 0.82 ng/dL 0.61-1.12 [facility] Troponin I High Sensitivityo n 12-10-2023 Troponin I High Sensitivity < 2.3 Normal 0.0-15.0 [facility] Comment on above: Result Comment: PERF ORMED BY: [address] [place] [address] PATHOLOGIST LOKIE ENGINEER JOHNIE BOSS M.D. Performed By: #### H EPATIC, BMP, LIPASE, CBC #### [facility] [address] Troponin I.cardiac [Mass/vol ume] in Serum or Plasma by Detection limit <= 0.01 ng/Ordered By: Marii Christiansen on 12-10-2023 Troponin I.cardiac DL <= 0.01 ng/mL [Mass/Vol] < 2.3 pg/mL 0.0-15.0 [facility] Urea nitrogen [Mass/volume] in Serum or PlasmaOrdered By: Marii Christiansen on 12-10-2023 Urea nitrogen [Mass/Vol] 14 mg/dL 725 [facility] WBC Auto (Bld) [#/Vol]Ordere d By: Marii Christiansen on 12-10-2023 WBC (Bld) [#/Vol] 7.1 10*3/uL 3.8-11.6 [facility] XR chest 2V*on 12-10-2023 XR chest 2V* [facility] [address] [place] [address] XRay Report Signed Patient: Shazia Chou MR#: [id number] : 1990 Acct:[id number] Age/Sex: 32 / F ADM Date: 12/10/23 Loc: ER Room: Type: [facility] ER Attending Dr: Copies to: Marii [...] Gaye Peraza M.D.12/10/2023 2:29 PM Dictation Location: [place] [address] Transcribed By: [facility] 12/10/23 1429 Dictated By: Gaye Peraza MD 12/10/23 1428 Signed By: 12/10/23 1429 Normal [facility] Consent for Treatmenton 11-13 Consent for Treatment [id number] F Normal [facility] [place] Mamm Diag w/CAD if perf a [...] very important to your health. The current [place] [employer] and National Comprehensive Cancer [...] BI-RADS Category 1-Negative Recommendation: Normal interval follow-up Normal [facility] US Breast Unilateral Lt Comp leteon 12-09-2023 US Breast Unilateral Lt Complete Exam Date/Time: 12/09/2023 10:07 EDT Reason for Exam: N63.21 Report PLEASE REFER TO THE MAMMOGRAM REPORT. Ordering Provider: Jennie Ames FINAL REPORT Dictated: 12/09/2023 4:28 pm Mychal Cabezas M.D. Signed (Electronic Signature): 12/09/2023 4:28 pm Signed by: Mychal Cabezas M.D. Transcribed by: MARCO Technologist: KYLE Normal [facility] Physician Orderon 12-08-2023 Physician Order [id number] FF Normal [facility] CT ABDOMEN PELVIS W IV CONTR Melba [...] Jacob Dillon DO 10/25/23 Final result Normal [facility] CBC panel Auto (Bld)on 08-31 Erythrocyte distribution width (RBC) [Ratio] 14.7 % Normal 11.5-15.0 [facility] Comment on above: Order Comment: Speci men Type: BLOOD SPECIMEN Ordering Facility: [facility] Address: [address] [place] [address] Performed By: #### 5 8410-2 #### [facility] CLIA [id number] [address] [place] [address] [place] Hematocrit (Bld) [Volume fraction] 36.9 % Normal 36.0-46.0 [facility] Comment on above: Order Comment: Speci men Type: BLOOD SPECIMEN Ordering Facility: [facility] Address: [address] [place] [address] Performed By: #### 5 8410-2 #### [facility] CLIA [id number] [address] [place] [address] [place] Hemoglobin (Bld) [Mass/Vol] 11.7 g/dL Normal 11.5-15.5 [facility] Comment on above: Order Comment: Speci men Type: BLOOD SPECIMEN Ordering Facility: [facility] Address: [address] [place] [address] Performed By: #### 5 8410-2 #### [facility] CLIA [id number] [address] [place] [address] [place] MCH (RBC) [Entitic mass] 29.8 pg Normal 26.0-34.0 [facility] Comment on above: Order Comment: Speci men Type: BLOOD SPECIMEN Ordering Facility: [facility] Address: [address] [place] [address] Performed By: #### 5 8410-2 #### [facility] CLIA [id number] [address] [place] [address] [place] MCHC (RBC) [Mass/Vol] 31.7 g/dL Normal 30.5-36.0 [facility] Comment on above: Order Comment: Speci men Type: BLOOD SPECIMEN Ordering Facility: [facility] Address: [address] [place] [address] Performed By: #### 5 8410-2 #### [facility] CLIA [id number] [address] [place] [address] [place] MCV (RBC) [Entitic vol] 93.9 fL Normal 80.0-100.0 [facility] Comment on above: Order Comment: Speci men Type: BLOOD SPECIMEN Ordering Facility: [facility] Address: [address] [place] [address] Performed By: #### 5 8410-2 #### [facility] CLIA [id number] [address] [place] [address] [place] Nucleated RBC (Bld) [#/Vol] 10*3/uL Normal <0.01 [facility] Comment on above: Order Comment: Speci men Type: BLOOD SPECIMEN Ordering Facility: [facility] Address: [address] [place] [address] Performed By: #### 5 8410-2 #### [facility] CLIA [id number] [address] [place] [address] [place] Platelet mean volume (Bld) [Entitic vol] 11.1 fL Normal 9.0-12.7 [facility] Comment on above: Order Comment: Speci men Type: BLOOD SPECIMEN Ordering Facility: [facility] Address: [address] [place] [address] Performed By: #### 5 8410-2 #### [facility] CLIA [id number] [address] [place] [address] [place] Platelets (Bld) [#/Vol] 297 10*3/uL Normal 150-400 [facility] Comment on above: Order Comment: Speci men Type: BLOOD SPECIMEN Ordering Facility: [facility] Address: [address] [place] [address] Performed By: #### 5 8410-2 #### [facility] CLIA [id number] [address] [place] [address] [place] RBC (Bld) [#/Vol] 3.93 10*6/uL Normal 3.90-5.20 [facility] Comment on above: Order Comment: Speci men Type: BLOOD SPECIMEN Ordering Facility: [facility] Address: [address] [place] [address] Performed By: #### 5 8410-2 #### [facility] CLIA [id number] [address] [place] [address] [place] WBC (Bld) [#/Vol] 6.82 10*3/uL Normal 3.70-11.00 [facility] Comment on above: Order Comment: Speci men Type: BLOOD SPECIMEN Ordering Facility: [facility] Address: [place] [address] Performed By: #### 5 8410-2 #### [facility] CLIA [id number] [address] [place] [id number] [place] CNOVon 08-31-2023 CNOV Office Visit ([id number] ) -------- SHAZIA CHOU ([id number]) 1990 F Date Time Provider Department 08/31/23 11:00 AM LEONELA GROSSMAN [id number] During your visit today, we recorded the following information about you: Temperature Pulse Blood pressure Weight 97.9 degrees 78/minute 123/88 89.4 kg Height 1.702 m [place], [place] 08/31/2023 11:14 AM Signed What is [...] (N/A, 09/28/2020); section; and Elbow surgery (Left, 2018). Family history: pancreas cancer in her father; [...] Take 40 mg by mouth once daily. ncklezvjwqbl-unc-dzme-FA -vit K (BARIATRIC MULTIVITAMINS) 45 mg iron- 800 [...] measure: Med (more content not included)... Normal [facility] Comprehensive metabolic 2000 panelon 08-31-2023 Albumin [Mass/Vol] 4.4 g/dL Normal 3.9-4.9 [facility] Comment on above: Order Comment: Philip birmingham Type: BLOOD SPECIMEN Ordering Facility: [facility] Address: [address] [place] [address] Performed By: #### L SONALI, 71373-4 #### [facility] CLIA [id number] [address] [place] [address] [place] ALP [Catalytic activity/Vol] 75 U/L Normal 34-123 [facility] Comment on above: Order Comment: Philip birmingham Type: BLOOD SPECIMEN Ordering Facility: [facility] Address: [address] [place] [address] Performed By: #### L SONALI, 52789-7 #### [facility] CLIA [id number] [address] [place] [address] [place] ALT [Catalytic activity/Vol] 16 U/L Normal 7-38 [facility] Comment on above: Order Comment: Speci men Type: BLOOD SPECIMEN Ordering Facility: [facility] Address: [address] [place] [address] Performed By: #### L IPNF, #### [facility] CLIA [id number] [address] [place] [address] [place] Anion gap [Moles/Vol] 11 mmol/L Normal 9-18 [facility] Comment on above: Order Comment: Speci men Type: BLOOD SPECIMEN Ordering Facility: [facility] Address: [address] [place] [address] Performed By: #### L IPNF, #### [facility] CLIA [id number] [address] [place] [address] [place] AST [Catalytic activity/Vol] 21 U/L Normal 13-35 [facility] Comment on above: Order Comment: Speci men Type: BLOOD SPECIMEN Ordering Facility: [facility] Address: [address] [place] [address] Performed By: #### L IPNF, #### [facility] CLIA [id number] [address] [place] [address] [place] Bilirubin [Mass/Vol] 0.2 mg/dL Normal 0.2-1.3 [facility] Comment on above: Order Comment: Speci men Type: BLOOD SPECIMEN Ordering Facility: [facility] Address: [address] [place] [address] Performed By: #### L IPNF, #### [facility] CLIA [id number] [address] [place] [address] [place] Calcium [Mass/Vol] 9.7 mg/dL Normal 8.5-10.2 [facility] Comment on above: Order Comment: Speci men Type: BLOOD SPECIMEN Ordering Facility: [facility] Address: [address] [place] [address] Performed By: #### L IPNF, #### [facility] CLIA [id number] [address] [place] [address] [place] Chloride [Moles/Vol] 106 mmol/L High 97-105 [facility] Comment on above: Order Comment: Speci men Type: BLOOD SPECIMEN Ordering Facility: [facility] Address: [address] [place] [address] Performed By: #### L IPNF, 62186-0 #### [facility] CLIA [id number] [address] [place] [address] [place] CO2 [Moles/Vol] 25 mmol/L Normal 22-30 [facility] Comment on above: Order Comment: Cecili men Type: BLOOD SPECIMEN Ordering Facility: [facility] Address: [address] [place] [address] Performed By: #### L IPNF, #### [facility] CLIA [id number] [address] [place] [address] [place] Creatinine [Mass/Vol] 0.55 mg/dL Low 0.58-0.96 [facility] Comment on above: Order Comment: Speci men Type: BLOOD SPECIMEN Ordering Facility: [facility] Address: [address] [place] [address] Performed By: #### L IPNF, #### [facility] CLIA [id number] [address] [place] [address] [place] Creatinine and Glomerular filtration rate.predicted panel (S/P/Bld) 124 mL/min/1.73m??? Normal >=60 [facility] Comment on above: Order Comment: Speci men Type: BLOOD SPECIMEN Ordering Facility: [facility] Address: [address] [place] [address] Result Comment: Brenda mated Glomerular Filtration Rate [...] actual GFR. Performed By: #### L IPNF, 09724-5 #### [facility] CLIA [id number] [address] [place] [address] [place] Glucose [Mass/Vol] 93 mg/dL Normal 74-99 [facility] Comment on above: Order Comment: Philip birmingham Type: BLOOD SPECIMEN Ordering Facility: [facility] Address: [address] [place] [address] Result Comment: The [place] [employer] Association (ADA) provides guidance for cutoff [...] Standards of Medical Care in Diabetes 2016, [place] [employer]. Diabetes Care. 2016.39(Suppl 1). Performed By: #### L IPNF, 03272-3 #### [facility] CLIA [id number] [address] [place] [address] [place] Potassium [Moles/Vol] 4.7 mmol/L Normal 3.7-5.1 [facility] Comment on above: Order Comment: Philip birmingham Type: BLOOD SPECIMEN Ordering Facility: [facility] Address: [address] [place] [address] Performed By: #### L IPNF, 51703-4 #### [facility] CLIA [id number] [address] [place] [address] [place] Protein [Mass/Vol] 7.3 g/dL Normal 6.3-8.0 [facility] Comment on above: Order Comment: Philip birmingham Type: BLOOD SPECIMEN Ordering Facility: [facility] Address: [address] [place] [address] Performed By: #### L IPNF, 29605-6 #### [facility] CLIA [id number] [address] [place] [address] [place] Sodium [Moles/Vol] 142 mmol/L Normal 136-144 [facility] Comment on above: Order Comment: Philip birmingham Type: BLOOD SPECIMEN Ordering Facility: [facility] Address: [address] [place] [place] [id number] Performed By: #### L IPNF, 05374-1 #### [facility] CLIA [id number] STATES OF [facility] Urea nitrogen [Mass/Vol] 9 mg/dL Normal 7-21 [facility] Comment on above: Order Comment: Philip birmingham Type: BLOOD SPECIMEN Ordering Facility: [facility] Address: [address] [place] [address] Performed By: #### L IPNF, 72760-9 #### [facility] CLIA [id number] [place] HISTORY PHYSICALon HISTORY PHYSICAL HNO ID: [id number] Author: Leonela Grossman MD Service: ? Author [...] Take 40 mg by mouth once daily. womhqnmyksvi-zms-ymzt-FA -vit K (BARIATRIC MULTIVITAMINS) 45 mg iron- 800 [...] or problem (more content not included)... Normal [facility] LIPID PANEL, NONFASTINGon Cholesterol [Mass/Vol] 154 mg/dL Normal <200 [facility] Comment on above: Order Comment: Philip birmingham Type: BLOOD SPECIMEN Ordering Facility: [facility] Address: [address] [place] [address] Result Comment: <200 mg/dL, Desirable 200-239 mg/dL, Borderline high >239 mg/dL, High Performed By: #### L SONALI, 28708-7 #### [facility] CLIA [id number] [address] [place] [address] [place] HDL CHOLESTEROL, NF 69 mg/dL Normal >39 [facility] Comment on above: Order Comment: Philip birmingham Type: BLOOD SPECIMEN Ordering Facility: [facility] Address: [address] [place] [address] Result Comment: 40-5 9 mg/dL, Acceptable >59 mg/dL, High: Negative risk factor for coronary heart disease <40 mg/dL, Low: Positive risk factor for coronary heart disease Performed By: #### L SONALI, 36094-5 #### [facility] CLIA [id number] [facility] LDL CHOLESTEROL, NF 66 mg/dL Normal <100 [facility] Comment on above: Order Comment: Philip birmingham Type: BLOOD SPECIMEN Ordering Facility: [facility] Address: [address] [place] [address] Result Comment: <100 mg/dL, Optimal 100-129 mg/dL, Near optimal/above optimal 130-159 mg/dL, Borderline high 160-189 mg/dL, High >189 mg/dL, Very high Secondary prevention optimal LDL Cholesterol levels are recommended to be < 70 mg/dL Performed By: #### L IPNF, 92461-0 #### [facility] CLIA [id number] [address] [place] [address] [place] LDL/HDL RATIO, NF 0.96 mg/dL Normal <2.54 [facility] Comment on above: Order Comment: Philip birmingham Type: BLOOD SPECIMEN Ordering Facility: [facility] Address: [address] [place] [address] Result Comment: Refjacqueline kasper: 1. National Cholesterol Education Program ATP III Guideline At-A-Glance Quick Desk Reference: National Heart, Lung, and Blood [place]. National Institutes of Health. 2001: NIH Publication No. 01-3305. 2. An International Atherosclerosis Society position paper: global recommendations for the management of dyslipidemia: executive summary, Atherosclerosis. 2014: 232(2):410-413. Performed By: #### L IPNF, 72563-6 #### [facility] CLIA [id number] [address] [place] [address] [place] NON HDL CHOL, NF 85 mg/dL Normal <130 [facility] Comment on above: Order Comment: Philip valencia Type: BLOOD SPECIMEN Ordering Facility: [facility] Address: [address] [place] [address] Result Comment: <130 mg/dL, Optimal 130-159 mg/dL, Near optimal/above optimal 160-189 mg/dL, Borderline high 190-219 mg/dL, High >219 mg/dL, Very high Secondary prevention optimal non HDL Cholesterol levels are recommended to be <100 mg/dL Performed By: #### L IPNF, 02760-5 #### [facility] CLIA [id number] [address] [place] [address] [place] T CHOL/HDL RATIO NF 2.23 mg/dL Normal <5.10 [facility] Comment on above: Order Comment: Speci men Type: BLOOD SPECIMEN Ordering Facility: [facility] Address: [address] [place] [address] Performed By: #### L IPNF, 46672-7 #### [facility] CLIA [id number] [address] [place] [address] [place] TRIGLYCERIDES, NF 96 mg/dL Normal <150 [facility] Comment on above: Order Comment: Speci men Type: BLOOD SPECIMEN Ordering Facility: [facility] Address: [address] [place] [address] Result Comment: <150 mg/dL, Normal 150-199 mg/dL, Borderline high 200-499 mg/dL, High >499 mg/dL, Very high Performed By: #### L IPNF, #### [facility] CLIA [id number] [address] [place] [address] [place] VLDL CHOLESTEROL, NF 19 mg/dL Normal <30 [facility] Comment on above: Order Comment: Speci men Type: BLOOD SPECIMEN Ordering Facility: [facility] Address: [address] [place] [address] Performed By: #### L IPNF, 51154-3 #### [facility] CLIA [id number] [address] [place] [address] [place] PHOSPHATIDYLETHANOL (PETH)on 08-31-2023 EER PETH See Note Normal [facility] Comment on above: Order Comment: Speci men Type: BLOOD SPECIMEN Ordering Facility: [facility] Address: [address] [place] [address] Result Comment: Auth orized individuals can access the [facility] Enhanced Report using the following link: [email or web address] Performed By: #### P ETH #### [facility] CLIA [id number] [address] [place] [address] PETH 16:0/18.2 (PLPETH) 244 ng/mL Normal [facility] Comment on above: Order Comment: Speci men Type: BLOOD SPECIMEN Ordering Facility: [facility] Address: [address] [place] [address] Result Comment: Refe rence ranges are not well established. Performed By: #### P ETH #### [facility] CLIA [id number] [address] [place] [address] PETH 16:0/18:1 (POPETH) 169 ng/mL Normal [facility] Comment on above: Order Comment: Speci men Type: BLOOD SPECIMEN Ordering Facility: [facility] Address: [address] [place] [address] Result Comment: PEth 16:0/18:1 (POPEth) Less than 10 ng/mL............Not detected Less than 20 ng/mL............Abstinence or light alcohol consumption 20 - 200 ng/mL................Moderate alcohol consumption Greater than 200 ng/mL........Heavy alcohol consumption or chronic alcohol use (Reference: Sophie Gonzalez and Crystal Zabala 2018 J. Forensic Sci) Performed By: #### P ETH #### [facility] CLIA [id number] [address] [place] [address] PETH INTERPRETATION See Note Normal [facility] Comment on above: Order Comment: Speci men Type: BLOOD SPECIMEN Ordering Facility: [facility] Address: [address] [place] [address] Result Comment: Phos phatidylethanol (PEth) is a [...] developed and its performance characteristics determined by [facility]. It has not been cleared or approved by the U.S. Food and Drug Administration. This test was performed in a CLIA-certified laboratory and is intended for clinical purposes. Performed By: [facility] [address] [place] [address] Schedule Analyst: Osmar Salcido MD, PhD CLIA Number: [id number] Performed By: #### P ETH #### [facility] CLIA [id number] [address] [place] [address] Ernesto 08-21-2023 CNPN Telephone ([id number]) -------- SHAZIA CHOU ([id number]) 1990 F Date Time Provider Department 08/21/23 LEONELA GROSSMAN [id number] During your visit today, we recorded the following information about you: Sindy Ruvalcaba RN 08/21/2023 10:19 AM Signed Called made to [facility] to push MRI from 08/20 through [...] 40 mg by mouth once daily. - nlarungagqck-bcs-tnje-FA -vit K (BARIATRIC MULTIVITAMINS) 45 mg iron- 800 [...] Status:Closed by SINDY RUVALCABA on 08/21/23 Normal [facility] MRI ABDOMEN W WO CONTRAST [...] Troy Bond MD 08/20/23 Final result Normal [facility] Vitamin Aon 08-16-2023 Interpretation Normal Normal [facility] Comment on above: Result Comment: (NOT E) This test was developed and its performance characteristics determined by [facility]. It has not been cleared or approved by the US Food and Drug Administration. This test was performed in a CLIA certified laboratory and is intended for clinical purposes. Performed By: [facility] [address] [place] [address] Schedule Analyst: Osmar Salcido MD, PhD CLIA Number: [id number] Performed By: #### P THNCA, FEBC, FERI, GLYHGB, VD25 #### [facility] [address] [place] [address] Data Center Project Manager: Harpal Adair MD #### AGNES OLIVO, AZN #### [facility] [address] [place] [address] Data Center Project Manager: Patricio Zuñiga MD #### CP, MG, CDP #### [facility] [address] [place] [address] [address] [place], [place] [id number] Data Center Project Manager: Hilton Armenta MD Retinol (Vitamin A) 0.60 mg/L Normal 0.30-1.20 [facility] Comment on above: Performed By: #### P THNCA, FEBC, FERI, GLYHGB, VD25 #### [facility] [place], [place] [id number] Data Center Project Manager: Harpal Adair MD #### ARIAN OLIVOTB1, AZN #### [facility] [address] [place] [address] Data Center Project Manager: Patricio Zuñiga MD #### ANGEL, MG, CDP #### [address] [place] [address] Data Center Project Manager: Hilton Armenta MD Retinyl Palmitate <0.02 Normal 0.00-0.10 [facility] Comment on above: Performed By: #### P DENNISA, FECHRIS, FERI, GLYHGB, VD25 #### [address] [address] Data Center Project Manager: Harpal Adair MD #### ARIAN OLIVOTB1, AZN #### [facility] [address] [place] [address] Data Center Project Manager: Patricio Zuñiga MD #### CP, MG, CDP #### [facility] [address] [place] [address] [place] [address] Data Center Project Manager: Hilton Armenta MD Alanine aminotransferase [En zymatic activity/volume] in Serum or PlasmaOrdered By: Yoli Norris on 08-15-2023 ALT [Catalytic activity/Vol] 18 U/L [facility] Albumin [Mass/volume] in Ser um or Plasma by Bromocresol green (BCG) dye binding methoOrdered By: Yoli Norris on 12-02-2023 Albumin BCG dye [Mass/Vol] 4.6 g/dL 3.5-5.7 [facility] Alkaline phosphatase [Enzyma tic activity/volume] in Serum or PlasmaOrdered By: Yoli Norris on 08-15-2023 ALP [Catalytic activity/Vol] 77 U/L 34-104 [facility] Aspartate aminotransferase [ Enzymatic activity/volume] in Serum or PlasmaOrdered By: Yoli Norris on 08-15-2023 AST [Catalytic activity/Vol] 18 U/L 13-39 [facility] Basic Metabolic Panelon 12-0 Anion gap [Moles/Vol] 12.7 mmol/L Normal 6.0-15.0 [facility] e [facility] Comment on above: Performed By: #### H EPATIC, BMP, LIPASE, CBC #### [facility] [address] Calcium [Mass/Vol] 9.8 mg/dL Normal 8.6-10.3 [facility] Comment on above: Performed By: #### H EPATIC, BMP, LIPASE, CBC #### [facility] [address] [place] [address] [place] Chloride [Moles/Vol] 109 mmol/L High 98-107 [facility] Comment on above: Performed By: #### H EPATIC, BMP, LIPASE, CBC #### [place] [address] [place] CO2 [Moles/Vol] 21.8 mmol/L Normal 21.0-31.0 [facility] Comment on above: Performed By: #### H EPATIC, BMP, LIPASE, CBC #### [facility] [address] [place] [address] [place] Creatinine [Mass/Vol] 0.76 mg/dL Normal 0.60-1.20 [facility] Comment on above: Performed By: #### H EPATIC, BMP, LIPASE, CBC #### [facility] [address] [place] [id number] [place] Creatinine Clr Calc Pharmacy 117.62 Normal [facility] Comment on above: Performed By: #### H EPATIC, BMP, LIPASE, CBC #### [facility] [address] [place] [address] GFR/1.73 sq M.predicted MDRD (S/P/Bld) [Vol rate/Area] mL/min/{1.73_m2} Normal [facility] Comment on above: Performed By: #### H EPATIC, BMP, LIPASE, CBC #### [address] Glucose [Mass/Vol] 85 mg/dL Normal 70-100 [facility] Comment on above: Result Comment: [facility] Glucose Reference Range is dependent on time and content of last meal. Glucose of more than 200 mg/dL in a nonstressed, ambulatory subject supports the diagnosis of Diabetes Mellitus. ADA recommended reference range Performed By: #### H EPATIC, BMP, LIPASE, CBC #### [address] Potassium [Moles/Vol] 3.5 mmol/L Normal 3.5-5.1 [facility] Comment on above: Performed By: #### H EPATIC, BMP, LIPASE, CBC #### [address] Sodium [Moles/Vol] 140 mmol/L Normal 136-145 [facility] Comment on above: Performed By: #### H EPATIC, BMP, LIPASE, CBC #### [address] Urea nitrogen [Mass/Vol] 11 mg/dL Normal 7-25 [facility] Comment on above: Performed By: #### H EPATIC, BMP, LIPASE, CBC #### [place] [address] [place] Basophils Auto (Bld) [#/Vol] Ordered By: Yoli Norris on 08-15-2023 Basophils (Bld) [#/Vol] 0.1 10*3/uL 0.0-0.2 [facility] Basophils/100 WBC Auto (Bld) Ordered By: Yoli Norris on 08-15-2023 Basophils/100 WBC (Bld) 0.5 % . [facility] Bilirubin Test strip Ql (U)O rdered By: Yoli Norris on 08-15-2023 Bilirubin Ql (U) Negative Negative [facility] Bilirubin.direct [Mass/volum e] in Serum or PlasmaOrdered By: Yoli Norris on 08-15-2023 Bilirubin.direct [Mass/Vol] 0.00 mg/dL 0.03-0.18 [facility] Comment on above: If the DBIL is less than 0.1, IBIL is not able to becalculated. Bilirubin.total [Mass/volume ] in Serum or PlasmaOrdered By: Yoli Norris on 08-15-2023 Bilirubin [Mass/Vol] 0.3 mg/dL 0.3-1.0 [facility] CT abdomen pelvis w conon CT abdomen pelvis w con [facility] [address] [place] [address] CT Scan Report Signed Patient: Shazia Chou MR#: [id number] : 1990 Acct:[id number] Age/Sex: 32 / F ADM Date: 08/15/23 Loc: ER Room: Type: [facility] ER Attending Dr: Copies to: Yoli [...] Gaye Peraza M.D.08/15/2023 1:03 PM Dictation Location: [place] [address] Transcribed By: [facility] 08/15/23 1303 Dictated By: Gaye Peraza MD 08/15/23 1256 Signed By: 08/15/23 1303 Normal [facility] Calcium [Mass/volume] in Ser um or PlasmaOrdered By: Yoli Norris on 08-15-2023 Calcium [Mass/Vol] 9.8 mg/dL 8.6-10.3 [facility] Carbon dioxide, total [Moles /volume] in Serum or PlasmaOrdered By: Yoli Norris on 08-15-2023 CO2 [Moles/Vol] 21.8 mmol/L 21.0-31.[address] [facility] Chloride [Moles/volume] in S tushar or PlasmaOrdered By: Yoli Norris on 08-15-2023 Chloride [Moles/Vol] 109 mmol/L 98-107 [facility] Color Auto (U)Ordered By: Maribel Norris on 08-15-2023 Color (U) Yellow Yellow [facility] Complete Blood Count Auto Di ffon 08-15-2023 Basophils (Bld) [#/Vol] 0.1 10*3/uL Normal 0.0-0.2 [facility] Comment on above: Result Comment: PERF ORMED BY: [facility] [address] [place] [address] PATHOLOGIST LOKIE ENGINEER JOHNIE BOSS M.D. Performed By: #### H EPATIC, BMP, LIPASE, CBC #### [address] Basophils/100 WBC (Bld) 0.5 % Normal . [facility] Comment on above: Performed By: #### H EPATIC, BMP, LIPASE, CBC #### [address] Eosinophils (Bld) [#/Vol] 0.2 10*3/uL Normal 0.0-0.45 [facility] Comment on above: Performed By: #### H EPATIC, BMP, LIPASE, CBC #### [address] Eosinophils/100 WBC (Bld) 2.1 % Normal . [facility] Comment on above: Performed By: #### H EPATIC, BMP, LIPASE, CBC #### [address] Erythrocyte distribution width (RBC) [Ratio] 15.1 % Normal 11.9-15.3 [facility] Comment on above: Performed By: #### H EPATIC, BMP, LIPASE, CBC #### [address] Hematocrit (Bld) [Volume fraction] 37.2 % Normal 34.0-46.4 [facility] Comment on above: Performed By: #### H EPATIC, BMP, LIPASE, CBC #### [address] Hemoglobin (Bld) [Mass/Vol] 12.2 g/dL Normal 11.8-15.4 [facility] Comment on above: Performed By: #### H EPATIC, BMP, LIPASE, CBC #### [address] Lymphocytes (Bld) [#/Vol] 2.0 10*3/uL Normal 1.00-4.8 [facility] Comment on above: Performed By: #### H EPATIC, BMP, LIPASE, CBC #### [address] Lymphocytes/100 WBC (Bld) 17.8 % Normal . [facility] Comment on above: Performed By: #### H EPATIC, BMP, LIPASE, CBC #### [address] MCH (RBC) [Entitic mass] 30.2 pg Normal 24.7-34.3 [facility] Comment on above: Performed By: #### H EPATIC, BMP, LIPASE, CBC #### [address] MCV (RBC) [Entitic vol] 92.4 fL Normal 80-100 [facility] Comment on above: Performed By: #### H EPATIC, BMP, LIPASE, CBC #### [address] Mean Corpuscular HGB Conc 32.7 g/dL Normal 32.0-35.0 [facility] Comment on above: Performed By: #### H EPATIC, BMP, LIPASE, CBC #### [address] Monocytes (Bld) [#/Vol] 0.6 10*3/uL Normal 0.0-0.8 [facility] Comment on above: Performed By: #### H EPATIC, BMP, LIPASE, CBC #### [address] Monocytes/100 WBC (Bld) 15.46 % Normal 0.00-20.00 [facility] Comment on above: Performed By: #### H EPATIC, BMP, LIPASE, CBC #### [address] Monocytes/100 WBC (Bld) 5.0 % Normal . [facility] Comment on above: Performed By: #### H EPATIC, BMP, LIPASE, CBC #### [address] Neutrophils (Bld) [#/Vol] 8.4 10*3/uL High 1.8-7.7 [facility] Comment on above: Performed By: #### H EPATIC, BMP, LIPASE, CBC #### [address] Neutrophils/100 WBC (Bld) 74.6 % Normal . [facility] Comment on above: Performed By: #### H EPATIC, BMP, LIPASE, CBC #### [address] NRBC% 0.0 /100{WBC} Normal 0-0.5 [facility] Comment on above: Performed By: #### H EPATIC, BMP, LIPASE, CBC #### [address] Platelet mean volume (Bld) [Entitic vol] 9.2 fL Normal 6.3-10.[address] [facility] Comment on above: Performed By: #### H EPATIC, BMP, LIPASE, CBC #### [address] Platelets (Bld) [#/Vol] 321 10*3/uL Normal 150-450 [facility] Comment on above: Performed By: #### H EPATIC, BMP, LIPASE, CBC #### [address] RBC (Bld) [#/Vol] 4.03 10*6/uL Normal 3.60-5.00 [facility] Comment on above: Performed By: #### H EPATIC, BMP, LIPASE, CBC #### [address] WBC (Bld) [#/Vol] 11.3 10*3/uL Normal 3.8-11.6 [facility] Comment on above: Performed By: #### H EPATIC, BMP, LIPASE, CBC #### [address] Creatinine [Mass/volume] in Serum or PlasmaOrdered By: Yoli Norris on 08-15-2023 Creatinine [Mass/Vol] 0.76 mg/dL 0.60-1.20 [facility] Eosinophils Auto (Bld) [#/Vo l]Ordered By: Yoli Norris on 08-15-2023 Eosinophils (Bld) [#/Vol] 0.2 10*3/uL 0.0-0.45 [facility] Eosinophils/100 WBC Auto (Bl d)Ordered By: Yoli Norris on 08-15-2023 Eosinophils/100 WBC (Bld) 2.1 % . [facility] Erythrocyte distribution wid th Auto (RBC) [Ratio]Ordered By: Yoli Norris on 08-15-2023 Erythrocyte distribution width (RBC) [Ratio] 15.1 % 11.9-15.3 [facility] Globulin Calc (S) [Mass/Vol] Ordered By: Yoli Norris on 08-15-2023 Globulin (S) [Mass/Vol] 3.2 g/dL [facility] Glucose [Mass/volume] in Ser um or PlasmaOrdered By: Yoli Norris on 08-15-2023 Glucose [Mass/Vol] 85 mg/dL 70-100 [facility] Comment on above: ADA recommended refe rence rangeRandom Glucose Reference Range is dependent on time and content of last meal. Glucose of more than 200 mg/dL in a nonstressed, ambulatory subject supports the diagnosis of Diabetes Mellitus. HCG ( test) IAkarina d Ql (U)Ordered By: Yoli Norris on 08-15-2023 HCG ( test) Ql (U) Negative [facility] HCG,Urineon 08-15-2023 Beta HCG ( test) Ql (U) Negative Normal [facility] Comment on above: Order Comment: Name Collection Type:: Clean-Voided Midstream Result Comment: PERF ORMED BY: [place] [address] PATHOLOGIST LOKIE ENGINEER JOHNIE BOSS M.D. Performed By: #### [facility] #### [address] Hematocrit Auto (Bld) [Volum e fraction]Ordered By: Yoli Norris on 08-15-2023 Hematocrit (Bld) [Volume fraction] 37.2 % 34.0-46.4 [facility] Hemoglobin [Mass/volume] in BloodOrdered By: Yoli Norris on 08-15-2023 Hemoglobin (Bld) [Mass/Vol] 12.2 g/dL 11.8-15.4 [facility] Hepatic Panelon 08-15-2023 Albumin [Mass/Vol] 4.6 g/dL Normal 3.5-5.7 [facility] Comment on above: Performed By: #### H EPATIC, BMP, LIPASE, CBC #### [facility] [address] Albumin/Globulin [Mass ratio] 1.4 {ratio} Normal [facility] Comment on above: Performed By: #### H EPATIC, BMP, LIPASE, CBC #### [facility] [address] ALP [Catalytic activity/Vol] 77 U/L Normal 34-104 [facility] Comment on above: Performed By: #### H EPATIC, BMP, LIPASE, CBC #### [facility] [address] [place] [address] ALT [Catalytic activity/Vol] 18 U/L Normal 7-52 [facility] Comment on above: Performed By: #### H EPATIC, BMP, LIPASE, CBC #### [facility] [address] [place] [address] AST [Catalytic activity/Vol] 18 U/L Normal 13-39 [facility] Comment on above: Performed By: #### H EPATIC, BMP, LIPASE, CBC #### [facility] [address] [place] [address] Bilirubin [Mass/Vol] 0.3 mg/dL Normal 0.3-1.0 [facility] Comment on above: Performed By: #### H EPATIC, BMP, LIPASE, CBC #### [facility] [address] [place] [address] Bilirubin,Indirect 0.3 mg/dL Normal [facility] Comment on above: Performed By: #### H EPATIC, BMP, LIPASE, CBC #### [facility] [address] [place] [address] Bilirubin.indirect [Mass/Vol] 0.00 mg/dL Low 0.03-0.18 [facility] Comment on above: Result Comment: If t he DBIL is less than 0.1, IBIL is not able to be calculated. Performed By: #### H EPATIC, BMP, LIPASE, CBC #### [address] Globulin (S) [Mass/Vol] 3.2 g/dL Normal [facility] Comment on above: Performed By: #### H EPATIC, BMP, LIPASE, CBC #### [address] Protein [Mass/Vol] 7.8 g/dL Normal 6.4-8.9 [facility] Comment on above: Performed By: #### H EPATIC, BMP, LIPASE, CBC #### [address] Ketones Auto test strip (U) [Mass/Vol]Ordered By: Yoli Norris on 08-15-2023 Ketones (U) [Mass/Vol] Negative Negative [facility] Leukocytes [#/volume] correc caitlin for nucleated erythrocytes in Blood by Automated counOrdered By: Yoli Norris on 08-15-2023 WBC corrected for nucl RBC Auto (Bld) [#/Vol] 11.3 10*3/uL 3.8-11.6 [facility] Lipaseon 08-15-2023 Lipase [Catalytic activity/Vol] 32.0 U/L Normal 11.0-82.0 [facility] Comment on above: Result Comment: PERF ORMED BY: [place] [address] PATHOLOGIST LOKIE ENGINEER JOHNIE BOSS M.D. Performed By: #### H EPATIC, BMP, LIPASE, CBC #### [address] Lipase [Enzymatic activity/v olume] in Serum or PlasmaOrdered By: Yoli Norris on 08-15-2023 Lipase [Catalytic activity/Vol] 32.0 U/L 11.0-82.0 [facility] Lymphocytes Auto (Bld) [#/Vo l]Ordered By: Yoli Norris on 08-15-2023 Lymphocytes (Bld) [#/Vol] 2.0 10*3/uL 1.00-4.8 [facility] Lymphocytes/100 WBC Auto (Bl d)Ordered By: Yoli Norris on 08-15-2023 Lymphocytes/100 WBC (Bld) 17.8 % . [facility] MCH Auto (RBC) [Entitic mass ]Ordered By: Yoli Norris on 08-15-2023 MCH (RBC) [Entitic mass] 30.2 pg 24.7-34.3 [facility] MCHC Auto (RBC) [Mass/Vol]Or dered By: Yoli Norris on 08-15-2023 MCHC (RBC) [Mass/Vol] 32.7 g/dL 32.0-35.0 [facility] [facility] MCV Auto (RBC) [Entitic vol] Ordered By: Yoli Norris on 08-15-2023 MCV (RBC) [Entitic vol] 92.4 fL 80-100 [facility] Monocyte distribution width [Entitic volume] in Blood by AutomatedOrdered By: Yoli Norris on 08-15-2023 Monocyte distribution width Auto (Bld) [Entitic vol] 15.46 % 0.00-20.00 [facility] Monocytes Auto (Bld) [#/Vol] Ordered By: Yoli Norris on 08-15-2023 Monocytes (Bld) [#/Vol] 0.6 10*3/uL 0.0-0.8 [facility] Monocytes/100 WBC Auto (Bld) Ordered By: Yoli Norris on 08-15-2023 Monocytes/100 WBC (Bld) 5.0 % . [facility] Neutrophils Auto (Bld) [#/Vo l]Ordered By: Yoli Norris on 08-15-2023 Neutrophils (Bld) [#/Vol] 8.4 10*3/uL 1.8-7.7 [facility] Neutrophils/100 WBC Auto (Bl d)Ordered By: Yoli Norris on 08-15-2023 Neutrophils/100 WBC (Bld) 74.6 % . [facility] Nitrite Test strip Ql (U)Ord ered By: Yoli Norris on 08-15-2023 Nitrite Ql (U) Negative Negative [facility] No Panel InformationOrdered By: Yoli Norris on 08-15-2023 Estimated GFR (CKD-EPI) > 60.0 mL/Min [facility] Creatinine Clearance (Chem 117.62 [facility] Nucleated erythrocytes [Pres ence] in Blood by Automated countOrdered By: Yoli Norris on 08-15-2023 Nucleated RBC Auto Ql (Bld) 0.0 /100{WBC} 0-0.5 [facility] Platelet mean volume Auto (B ld) [Entitic vol]Ordered By: Yoli Norris on 08-15-2023 Platelet mean volume (Bld) [Entitic vol] 9.2 fL 6.3-10.7 [facility] Platelets Auto (Bld) [#/Vol] Ordered By: Yoli Norris on 08-15-2023 Platelets (Bld) [#/Vol] 321 10*3/uL 150-450 [facility] Potassium [Moles/volume] in Serum or PlasmaOrdered By: Yoli Norris on 08-15-2023 Potassium [Moles/Vol] 3.5 mmol/L 3.5-5.1 [facility] Protein Auto test strip (U) [Mass/Vol]Ordered By: Yoli Norris on 08-15-2023 Protein (U) [Mass/Vol] Negative Negative [facility] Protein [Mass/volume] in Ser um or PlasmaOrdered By: Yoli Norris on 08-15-2023 Protein [Mass/Vol] 7.8 g/dL 6.4-8.9 [facility] RBC Auto (Bld) [#/Vol]Ordere d By: Yoli Norris on 08-15-2023 RBC (Bld) [#/Vol] 4.03 10*6/uL 3.60-5.00 [facility] Serum or plasma albumin/glob ulin mass ratioOrdered By: Yoli Norris on 08-15-2023 Albumin/Globulin [Mass ratio] 1.4 {ratio} [facility] Serum or plasma anion gap de terminationOrdered By: Yoli Norris on 08-15-2023 Anion gap [Moles/Vol] 12.7 mmol/L 6.0-15.0 [facility] Serum or plasma non-glucuron idated bilirubin measurement (mass/volume)Ordered By: Yoli Norris on 08-15-2023 Bilirubin.indirect [Mass/Vol] 0.3 mg/dL [facility] Sodium [Moles/volume] in Ser um or PlasmaOrdered By: Yoli Norris on 08-15-2023 Sodium [Moles/Vol] 140 mmol/L 136-145 [facility] Specific gravity Auto test s trip (U) [Rel density]Ordered By: Yoli Norris on 08-15-2023 Specific gravity (U) [Rel density] 1.007 1.001-1.030 [facility] Urea nitrogen [Mass/volume] in Serum or PlasmaOrdered By: Yoli Norris on 08-15-2023 Urea nitrogen [Mass/Vol] 11 mg/dL 7-25 [facility] Urinalysison 08-15-2023 Appearance (U) Clear Normal Clear [facility] Comment on above: Order Comment: Name Collection Type:: Clean-Voided Midstream Performed By: #### U A, UHCG #### [facility] [address] [place] [address] [place] Bilirubin,Urine Negative Normal Negative [facility] Comment on above: Order Comment: Name Collection Type:: Clean-Voided Midstream Performed By: #### U A, UHCG #### [facility] [address] [place] [address] [place] Color (U) Yellow Normal Yellow [facility] Comment on above: Order Comment: Name Collection Type:: Clean-Voided Midstream Performed By: #### U A, UHCG #### [facility] [address] [place] [id number] [place] Glucose Ql (U) Normal Normal Normal [facility] Comment on above: Order Comment: Name Collection Type:: Clean-Voided Midstream Performed By: #### U A, UHCG #### [facility] [address] [place] [id number] [place] Ketones Ql (U) Negative Normal Negative [facility] Comment on above: Order Comment: Name Collection Type:: Clean-Voided Midstream Performed By: #### U A, UHCG #### [facility] [address] [place] [address] Leukocyte esterase Test strip Ql (U) Negative Normal Negative [facility] Comment on above: Order Comment: Name Collection Type:: Clean-Voided Midstream Performed By: #### U A, UHCG #### [address] Nitrite,Urine Negative Normal Negative [facility] Comment on above: Order Comment: Name Collection Type:: Clean-Voided Midstream Performed By: #### U A, UHCG #### [address] Occult Blood,Urine Negative Normal Negative [facility] Comment on above: Order Comment: Name Collection Type:: Clean-Voided Midstream Performed By: #### U A, UHCG #### [address] pH (U) 8.0 [pH] Normal 5.0-9.0 [facility] Comment on above: Order Comment: Name Collection Type:: Clean-Voided Midstream Performed By: #### U A, UHCG #### [place] [address] [place] Protein,Urine Negative Normal Negative [facility] Comment on above: Order Comment: Name Collection Type:: Clean-Voided Midstream Performed By: #### U A, UHCG #### [address] Specificy [place],Urine 1.007 Normal 1.001-1.030 [facility] Comment on above: Order Comment: Name Collection Type:: Clean-Voided Midstream Performed By: #### U A, UHCG #### [place] [address] [place] Urobilinogen,Urine Normal Normal Normal [facility] Comment on above: Order Comment: Name Collection Type:: Clean-Voided Midstream Performed By: #### U A, UHCG #### [place] [address] [place] Urine clarity by refractomet ry automatedOrdered By: Yoli Norris on 08-15-2023 Clarity Refractometry automated (U) Clear Clear [facility] Urine glucose measurement by automated test strip (mass/volume)Ordered By: Yoli Norris on 08-15-2023 Glucose Auto test strip (U) [Mass/Vol] Normal mg/dL Normal [facility] Urine hemoglobin detection b y automated test stripOrdered By: Yoli Norris on 08-15-2023 Hemoglobin Auto test strip Ql (U) Negative Negative [facility] Urine leukocyte esterase det ection by automated test stripOrdered By: Yoli Norris on 08-15-2023 Leukocyte esterase Auto test strip Ql (U) Negative Negative [facility] Urobilinogen Auto test strip (U) [Mass/Vol]Ordered By: Yoli Norris on 08-15-2023 Urobilinogen (U) [Mass/Vol] Normal mg/dL Normal [facility] Vitamin B1on 08-15-2023 Vitamin B1 145 nmol/L Normal 70-180 [facility] Comment on above: Result Comment: (NOT E) [...] developed and its performance characteristics determined by [facility]. It has not been cleared or approved by the [place] Food and Drug Administration. This test was performed in a CLIA certified laboratory and is intended for clinical purposes. Performed By: [facility] [address] [place] [id number] Schedule Analyst: Osmar Salcido MD, PhD CLIA Number: [id number] Performed By: #### P THNCA, FEBC, FERI, GLYHGB, VD25 #### [facility] [place] [address] [place] [id number] Data Center Project Manager: Harpal Adair MD #### AGNES OLIVO, AZN #### [facility] [address] [place] [address] Data Center Project Manager: Patricio Zuñiga MD #### ANGEL MG, CDP #### [facility] [address] [place] [address] Data Center Project Manager: Hilton Armenta MD WBC Auto (Bld) [#/Vol]Ordere d By: Yoli Norris on 08-15-2023 WBC (Bld) [#/Vol] 11.3 10*3/uL 3.8-11.6 [facility] pH Auto test strip (U)Ordere d By: Yoli Norris on 08-15-2023 pH (U) 8.0 [pH] 5.0-9.0 [facility] Zinc, Serumon 08-14-2023 Zinc, Serum 95.3 ug/dL Normal 60.0-120.0 [facility] Comment on above: Result Comment: (NOT E) [...] developed and its performance characteristics determined by [facility]. It has not been cleared or approved by the [place] Food and Drug Administration. This test was performed in a CLIA certified laboratory and is intended for clinical purposes. Performed By: [facility] [address] [place] [address] Schedule Analyst: Osmar Salcido MD, PhD CLIA Number: [id number] Performed By: #### P THNCA, FEBC, FERI, GLYHGB, VD25 #### [facility] [address] [address] Data Center Project Manager: Harpal Adair MD #### PALLAVI, ARIANTB1, AZN #### [facility] [address] [place] [address] Data Center Project Manager: Patricio Zuñiga MD #### CP, MG, CDP #### [facility] [address] [place], [place] [phone] Data Center Project Manager: Hilton Armenta MD B12/Folate Panelon Folic Acid >20.0 Normal >4.8 [facility] Comment on above: Performed By: #### P THNCA, FEBC, FERI, GLYHGB, VD25 #### [place] [address] [place] [address] Data Center Project Manager: Harpal Adair MD #### AGNES OLIVO, AZN #### [facility] [address] [place], [place] [id number] Data Center Project Manager: Patricio Zuñiga MD #### MG ANGEL, CDP #### [address] [place], [place] [address]83 Data Center Project Manager: Hilton Armenta MD Cobalamin (Vitamin B12) [Mass/Vol] 632 pg/mL Normal 232-1245 [facility] Comment on above: Performed By: #### P DENNISA, FEBC, FERI, GLYHGB, VD25 #### [address] [address] Data Center Project Manager: Harpal Adair MD #### AGNES OLIVO, AZN #### [facility] [address] [place] [address] Data Center Project Manager: Patricio Zuñiga MD #### ANGEL, MG, CDP #### [address] [place], [place] [phone] Data Center Project Manager: Hilton Armenta MD CBC with Diffon 08-12-2023 Abs. Basophil 0.06 k/uL Normal 0.00-0.20 [facility] Comment on above: Performed By: #### P THNCA, FEBC, FERI, GLYHGB, VD25 #### [facility] [address] [place] [address] Data Center Project Manager: Harpal Adair MD #### ARIAN OLIVOTB1, AZN #### [facility] [address] [place] [address] Data Center Project Manager: Patricio Zuñiga MD #### CP, MG, CDP #### [facility] [address] [place] [address] [address] [place], [place] [phone] Data Center Project Manager: Hilton Armenta MD Abs.Imm.Granulocyte 0.03 k/uL Normal 0.00-0.30 [facility] Comment on above: Performed By: #### P BAILEY, FECHRIS, FERI, GLYHGB, VD25 #### [address] [address] Data Center Project Manager: Harpal Adair MD #### ARIAN OLIVOTB1, AZN #### [facility] [address] [place] [address] Data Center Project Manager: Patricio Zuñiga MD #### ANGEL, MG, CDP #### [address] [place] [address] Data Center Project Manager: Hilton Armenta MD Abs.Neutrophil (Seg) 6.33 k/uL Normal 1.50-8.10 [facility] Comment on above: Performed By: #### P DENNISA, FEBC, FERI, GLYHGB, VD25 #### [address] [address] Data Center Project Manager: Harpal Adair MD #### ARIAN OLIVOTB1, AZN #### [facility] [address] [place] [address] Data Center Project Manager: Patricio Zuñiga MD #### CP, MG, CDP #### [address] [place] [address] Data Center Project Manager: Hilton Armenta MD Basophils/100 WBC (Bld) 1 % Normal 0-2 [facility] Comment on above: Performed By: #### P THNCA, FEBC, FERI, GLYHGB, VD25 #### [facility] [place] [address] Data Center Project Manager: Harpal Adair MD #### FARHADS, ARIANTB1, AZN #### [facility] [address] [place] [address] Data Center Project Manager: Patricio Zuñiga MD #### CP, MG, CDP #### [facility] [address] [place], [place] [id number] Data Center Project Manager: Hilton Armenta MD Eosinophils (Bld) [#/Vol] 0.43 10*3/uL Normal 0.00-0.44 [facility] Comment on above: Performed By: #### P THNCA, FEBC, FERI, GLYHGB, VD25 #### [facility] [address] [place] [address] Data Center Project Manager: Harpal Adair MD #### ARIAN OLIVOTB1, AZN #### [facility] [address] [place], [place] [id number] Data Center Project Manager: Patricio Zuñiga MD #### ANGEL, MG, CDP #### [address] [place], [place] [address] Data Center Project Manager: Hilton Armenta MD Eosinophils/100 WBC (Bld) 5 % High 1-4 [facility] Comment on above: Performed By: #### P THNCA, FEBC, FERI, GLYHGB, VD25 #### [address] [address] Data Center Project Manager: Harpal Adair MD #### ARIAN OLIVOTB1, AZN #### [facility] [address] [place] [address] Data Center Project Manager: Patricio Zuñiga MD #### CP, MG, CDP #### [facility] [address] [place], [place] [phone] Data Center Project Manager: Hilton Armenta MD Erythrocyte distribution width (RBC) [Ratio] 14.9 % High 11.8-14.4 [facility] Comment on above: Performed By: #### P THNCA, FEBC, FERI, GLYHGB, VD25 #### [address] [phone] Data Center Project Manager: Harpal Adair MD #### AGNES OLIVO, AZN #### [facility] [address] [place], [place] [id number] Data Center Project Manager: Patricio Zuñiga MD #### MG ANGEL, CDP #### [address] [place] [address] Data Center Project Manager: Hilton Armenta MD Hematocrit (Bld) [Volume fraction] 38.0 % Normal 36.3-47.1 [facility] Comment on above: Performed By: #### P DENNISA, FEBC, FERI, GLYHGB, VD25 #### [address] [address] Data Center Project Manager: Harpal Adair MD #### AGNES OLIVO, AZN #### [facility] [address] [place] [address] Data Center Project Manager: Patricio Zuñiga MD #### MG ANGEL, CDP #### [address] [place] [address] Data Center Project Manager: Hilton Armenta MD Hemoglobin (Bld) [Mass/Vol] 12.2 g/dL Normal 11.9-15.1 [facility] Comment on above: Performed By: #### P THNCA, FEBC, FERI, GLYHGB, VD25 #### [address] [id number] Data Center Project Manager: Harpal Adair MD #### AGNES OLIVO, AZN #### [facility] [address] [place], [place] [id number] Data Center Project Manager: Patricio Zuñiga MD #### MG ANGEL, CDP #### [facility] [address] [place], [place] [id number] Data Center Project Manager: Hilton Armenta MD Immature granulocytes/100 WBC (Bld) 0 % Normal 0 [facility] Comment on above: Performed By: #### P THNCA, FEBC, FERI, GLYHGB, VD25 #### [address] [id number] Data Center Project Manager: Harpal Adair MD #### ARIAN OLIVOTB1, AZN #### [facility] [address] [place], [place] [id number] Data Center Project Manager: Patricio Zuñiga MD #### MG ANGEL, CDP #### [address] [place] [address] Data Center Project Manager: Hilton Armenta MD Lymphocytes (Bld) [#/Vol] 1.90 10*3/uL Normal 1.10-3.70 [facility] Comment on above: Performed By: #### P THNCA, FEBC, FERI, GLYHGB, VD25 #### [address] [address] Data Center Project Manager: Harpal Adair MD #### TYREE OLIVO1, AZN #### [facility] [address] [place], [place] [id number] Data Center Project Manager: Patricio Zuñiga MD #### ANGEL MG, CDP #### [facility] [address] [place], [place] 993[address]83 Data Center Project Manager: Hilton Armenta MD Lymphocytes/100 WBC (Bld) 20 % Low 24-43 [facility] Comment on above: Performed By: #### P THNCA, FEBC, FERI, GLYHGB, VD25 #### [place] [address] [place], [place] 9244508 Data Center Project Manager: Harpal Adair MD #### AGNES OLIVO, AZN #### [facility] [address] [place], [place] [id number] Data Center Project Manager: Patricio Zuñiga MD #### ANGEL, MG, CDP #### [address] [place], [place] 7326783 Data Center Project Manager: Hilton Armenta MD MCH (RBC) [Entitic mass] 29.9 pg Normal 25.2-33.5 [facility] Comment on above: Performed By: #### P THNCA, FEBC, FERI, GLYHGB, VD25 #### [address] [address] Data Center Project Manager: Harpal Adair MD #### AGNES OLIVO, AZN #### [facility] [address] [place] [address] Data Center Project Manager: Patricio Zuñiga MD #### MG ANGEL, CDP #### [address] [place] [address] Data Center Project Manager: Hilton Armenta MD MCHC (RBC) [Mass/Vol] 32.1 g/dL Normal 28.4-34.8 [facility] Comment on above: Performed By: #### P THNCA, FEBC, FERI, GLYHGB, VD25 #### [address] [id number] Data Center Project Manager: Harpal Adair MD #### AGNES OLIVO, AZN #### [facility] [address] [place], [place] [id number] Data Center Project Manager: Patricio Zuñiga MD #### ANGEL, MG, CDP #### [place] [address] [place], [place] 8902883 Data Center Project Manager: Hilton Armenta MD MCV (RBC) [Entitic vol] 93.1 fL Normal 82.6-102.9 [facility] Comment on above: Performed By: #### P THNCA, FEBC, FERI, GLYHGB, VD25 #### [address] [id number] Data Center Project Manager: Harpal Adair MD #### AGNES OLIVO, AZN #### [facility] [address] [place], [place] [id number] Data Center Project Manager: Patricio Zuñiga MD #### MG ANGEL, CDP #### [address] [place] [id number] Data Center Project Manager: Hilton Armenta MD Monocytes (Bld) [#/Vol] 0.70 10*3/uL Normal 0.10-1.20 [facility] Comment on above: Performed By: #### P THNCA, FEBC, FERI, GLYHGB, VD25 #### [address] [address] Data Center Project Manager: Harpal Adair MD #### AGNES OLIVO, AZN #### [facility] [address] [place], [place] [id number] Data Center Project Manager: Patricio Zuñiga MD #### ANGEL, MG, CDP #### [address] [place] [id number] Data Center Project Manager: Hilton Armenta MD Monocytes/100 WBC (Bld) 7 % Normal 3-12 [facility] Comment on above: Performed By: #### P THNCA, FEBC, FERI, GLYHGB, VD25 #### [address] [id number] Data Center Project Manager: Harpal Adair MD #### AGNES OLIVO, AZN #### [facility] [address] [place] [address] Data Center Project Manager: Patricio Zuñiga MD #### ANGEL MG, CDP #### [address] [place], [place] 424[address]83 Data Center Project Manager: Hilton Armenta MD Neutrophil (Seg) 67 % High 36-65 [facility] Comment on above: Performed By: #### P THNCA, FEBC, FERI, GLYHGB, VD25 #### [address] [phone] Data Center Project Manager: Harpal Adair MD #### AGNES OLIVO, AZN #### [facility] [address] [place], [place] [id number] Data Center Project Manager: Patricio Zuñiga MD #### MG ANGEL, CDP #### [address] [place], [place] 8238483 Data Center Project Manager: Hilton Armenta MD NRBC Automated 0.0 per 100 WBC Normal 0.0 [facility] Comment on above: Performed By: #### P THNCA, FEBC, FERI, GLYHGB, VD25 #### [address] [address] Data Center Project Manager: Harpal Adair MD #### AGNES OLIVO, AZN #### [facility] [address] [place], [place] [id number] Data Center Project Manager: Patricio Zuñiga MD #### ANGEL MG, CDP #### [address] [place] [address] Data Center Project Manager: Hilton Armenta MD Platelet mean volume (Bld) [Entitic vol] 10.6 fL Normal 8.1-13.5 [facility] Comment on above: Performed By: #### P THNCA, FEBC, FERI, GLYHGB, VD25 #### [place] [place] [address] Data Center Project Manager: Harpal Adair MD #### AGNES OLIVO, AZN #### [facility] [address] [place] [address] Data Center Project Manager: Patricio Zuñiga MD #### ANGEL MG, CDP #### [address] [place], [place] 4106483 Data Center Project Manager: Hilton Armenta MD Platelets (Bld) [#/Vol] 355 10*3/uL Normal 138-453 [facility] Comment on above: Performed By: #### P GINCA, FEBC, FERI, GLYHGB, VD25 #### [address] [address] Data Center Project Manager: Harpal Adair MD #### AGNES OLIVO, AZN #### [facility] [address] [place] [address] Data Center Project Manager: Patricio Zuñiga MD #### MG ANGEL, CDP #### [address] [place] [address] Data Center Project Manager: Hilton Armenta MD RBC (Bld) [#/Vol] 4.08 10*6/uL Normal 3.95-5.11 [facility] Comment on above: Performed By: #### P THNCA, FEBC, FERI, GLYHGB, VD25 #### [address] [address] Data Center Project Manager: Harpal Adair MD #### AGNES OLIVO, AZN #### [facility] [address] [place] [address] Data Center Project Manager: Patricio Zuñiga MD #### ANGEL MG, CDP #### [address] [place], [place] 2879083 Data Center Project Manager: Hilton Armenta MD WBC (Bld) [#/Vol] 9.5 10*3/uL Normal 3.5-11.3 [facility] Comment on above: Performed By: #### P THNCA, FEBC, FERI, GLYHGB, VD25 #### [address] [id number] Data Center Project Manager: Harpal Adair MD #### AGNES OLIVO, AZN #### [facility] [address] [place], [place] [id number] Data Center Project Manager: Patricio Zuñiga MD #### ANGEL, MG, CDP #### [address] [place] [address] Data Center Project Manager: Hilton Armenta MD Comp Metabolic Profon 2022 Albumin [Mass/Vol] 4.5 g/dL Normal 3.5-5.2 [facility] Comment on above: Performed By: #### P THNCA, FEBC, FERI, GLYHGB, VD25 #### [address] [address] Data Center Project Manager: Harpal Adair MD #### AGNES OLIVO, AZN #### [facility] [address] [place] [address] Data Center Project Manager: Patricio Zuñiga MD #### ANGEL, MG, CDP #### [facility] [address] [place] [address] [address] [place] [phone] Data Center Project Manager: Hilton Armenta MD Albumin/Glob Ratio 1.6 Normal 1.0-2.5 [facility] Comment on above: Performed By: #### P THNCA, FEBC, FERI, GLYHGB, VD25 #### [facility] [address] [place] [address] [id number] Data Center Project Manager: Harpal Adair MD #### AGNES OLIVO, AZN #### [facility] [address] [place] [address] Data Center Project Manager: Patricio Zuñiga MD #### MG ANGEL, CDP #### [facility] [address] [place], [place] 067[address]83 Data Center Project Manager: Hilton Armenta MD Alkaline Phos 85 U/L Normal 35-104 [facility] Comment on above: Performed By: #### P THNCA, FEBC, FERI, GLYHGB, VD25 #### [address] [id number] Data Center Project Manager: Harpal Adair MD #### AGNES OLIVO, AZN #### [facility] [address] [place], [place] [id number] Data Center Project Manager: Patricio Zuñiga MD #### MG ANGEL, CDP #### [facility] [address] [place] [address] [place] [address] Data Center Project Manager: Hilton Armenta MD ALT [Catalytic activity/Vol] 21 U/L Normal 5-33 [facility] Comment on above: Performed By: #### P DENNISA, FEBC, FERI, GLYHGB, VD25 #### [address] [phone] Data Center Project Manager: Harpal Adair MD #### AGNES OLIVO, AZN #### [facility] [address] [place] [address] Data Center Project Manager: Patricio Zuñiga MD #### ANGEL MG, CDP #### [facility] [address] [place] [address] Data Center Project Manager: Hilton Armenta MD Anion gap [Moles/Vol] 11 mmol/L Normal 9-17 [facility] Comment on above: Performed By: #### P THNCA, FEBC, FERI, GLYHGB, VD25 #### [facility] [place] [address] Data Center Project Manager: Harpal Adair MD #### AGNES OLIVO, AZN #### [facility] [address] [place] [address] Data Center Project Manager: Patricio Zuñiga MD #### MG ANGEL, CDP #### [address] [place], [place] 3199083 Data Center Project Manager: Hilton Armenta MD AST [Catalytic activity/Vol] 22 U/L Normal <32 [facility] Comment on above: Performed By: #### ALFONSO COSTA, FERI, GLYHGB, VD25 #### [address] [address] Data Center Project Manager: Harpal Adair MD #### AGNES OLIVO, AZN #### [facility] [address] [place] [address] [phone] Data Center Project Manager: Patricio Zuñiga MD #### MG ANGEL, CDP #### [address] [place] [address] Data Center Project Manager: Hilton Armenta MD Bilirubin [Mass/Vol] 0.2 mg/dL Low 0.3-1.2 [facility] Comment on above: Performed By: #### P BAILEY, FECHRIS, FERI, GLYHGB, VD25 #### [address] [address] Data Center Project Manager: Harpal Adair MD #### AGNES OLIVO, AZN #### [facility] [address] [place], [place] [id number] Data Center Project Manager: Patricio Zuñiga MD #### ANGEL, MG, CDP #### [address] [place] [address] Data Center Project Manager: Hilton Armenta MD BUN/CRE Ratio 20 Normal 9-20 [facility] Comment on above: Performed By: #### P DENNISA, FEBC, FERI, GLYHGB, VD25 #### [address] [address] Data Center Project Manager: Harpal Adair MD #### AGNES OLIVO, AZN #### [facility] [address] [place], [place] [id number] Data Center Project Manager: Patricio Zuñiga MD #### CP, MG, CDP #### [facility] [address] [place] [address] Data Center Project Manager: Hilton Armenta MD Calcium [Mass/Vol] 9.9 mg/dL Normal 8.6-10.4 [facility] Comment on above: Performed By: #### P BAILEY, ALFONSO, FERI, GLYHGB, VD25 #### [address] [address] Data Center Project Manager: Harpal Adair MD #### AGNES OLIVO, AZN #### [facility] [address] [place] [address] Data Center Project Manager: Patricio Zuñiga MD #### ANGEL, MG, CDP #### [facility] [address] [place] [address] [place] [address] Data Center Project Manager: Hilton Armenta MD Chloride [Moles/Vol] 107 mmol/L Normal 98-107 [facility] Comment on above: Performed By: #### P DENNISA, FECHRIS, FERI, GLYHGB, VD25 #### [address] [address] Data Center Project Manager: Harpal Adair MD #### AGNES OLIVO, AZN #### [facility] [address] [place], [place] [id number] Data Center Project Manager: Patricio Zuñiga MD #### CP, MG, CDP #### [facility] [address] [place], [place] [phone] Data Center Project Manager: Hilton Armenta MD CO2 [Moles/Vol] 23 mmol/L Normal 20-31 [facility] Comment on above: Performed By: #### P THNCA, FEBC, FERI, GLYHGB, VD25 #### [facility] [address] [place], [place] [phone] Data Center Project Manager: Harpal Adair MD #### ARIAN OLIVOTB1, AZN #### [facility] [address] [place], [place] [phone] Data Center Project Manager: Patricio Zuñiga MD #### ANGEL, MG, CDP #### [facility] [address] [place] [address] [place] [address] Data Center Project Manager: Hilton Armenta MD Creatinine [Mass/Vol] 0.6 mg/dL Normal 0.5-0.9 [facility] Comment on above: Performed By: #### P DENNISA, FECHRIS, FERI, GLYHGB, VD25 #### [address] [place] [address] Data Center Project Manager: Harpal Adair MD #### ARIAN OLIVOTB1, AZN #### [facility] [address] [place] [phone] Data Center Project Manager: Patricio Zuñiga MD #### CP, MG, CDP #### [facility] [address] [place] [address] [place] [address] Data Center Project Manager: Hilton Armenta MD GFR/1.73 sq M.predicted among non-blacks MDRD (S/P/Bld) [Vol rate/Area] mL/min/{1.73_m2} Normal >60 [facility] Comment on above: Result Comment: These results [...] tubular secretion. Performed By: #### P THNCA, FEBC, FERI, GLYHGB, VD25 #### [address] [address] Data Center Project Manager: Harpal Adair MD #### AGNES OLIVO, AZN #### [facility] [address] [place] [address] Data Center Project Manager: Patricio Zuñiga MD #### MG ANGEL, CDP #### [address] [place] [address] Data Center Project Manager: Hilton Armenta MD Glucose [Mass/Vol] 89 mg/dL Normal 70-99 [facility] Comment on above: Performed By: #### P DENNISA, FEBC, FERI, GLYHGB, VD25 #### [address] [address] Data Center Project Manager: Harpal Adair MD #### AGNES OLIVO, AZN #### [facility] [address] [place] [address] [phone] Data Center Project Manager: Patricio Zuñiga MD #### MG ANGEL, CDP #### [address] [place] [address] Data Center Project Manager: Hilton Armenta MD Potassium [Moles/Vol] 4.3 mmol/L Normal 3.7-5.3 [facility] Comment on above: Performed By: #### P THNCA, FEBC, FERI, GLYHGB, VD25 #### [address] [address] Data Center Project Manager: Harpal Adair MD #### AGNES OLIVO, AZN #### [facility] [address] [place] [address] Data Center Project Manager: Patricio Zuñiga MD #### ANGEL, MG, CDP #### [address] [place] [address] Data Center Project Manager: Hilton Armenat MD Protein [Mass/Vol] 7.4 g/dL Normal 6.4-8.3 [facility] Comment on above: Performed By: #### P THNCA, FEBC, FERI, GLYHGB, VD25 #### [address] [phone] Data Center Project Manager: Harpal Adair MD #### AGNES OLIVO, AZN #### [facility] [address] [place], [place] [phone] Data Center Project Manager: Patricio Zuñiga MD #### MG ANGEL, CDP #### [address] [place] [address] Data Center Project Manager: Hilton Armenta MD Sodium [Moles/Vol] 141 mmol/L Normal 135-144 [facility] Comment on above: Performed By: #### P THNCA, FEBC, FERI, GLYHGB, VD25 #### [address] [phone] Data Center Project Manager: Harpal Adair MD #### AGNES OLIVO, AZN #### [facility] [address] [place] [address] Data Center Project Manager: Patricio Zuñiga MD #### ANGEL, MG, CDP #### [address] [place] [address] Data Center Project Manager: Hilton Armenta MD Urea nitrogen [Mass/Vol] 12 mg/dL Normal 6-20 [facility] Comment on above: Performed By: #### P THNCA, FEBC, FERI, GLYHGB, VD25 #### [facility] [place] [address] Data Center Project Manager: Harpal Adair MD #### AGNES OLIVO, AZN #### [facility] [address] [place], [place] [id number] Data Center Project Manager: Patricio Zuñiga MD #### ANGEL, MG, CDP #### [address] [place], [place] [phone] Data Center Project Manager: Hilton Armenta MD Ferritinon 08-12-2023 Ferritin [Mass/Vol] 12 ng/mL Low 13-150 [facility] Comment on above: Performed By: #### P DENNISA, FEBC, FERI, GLYHGB, VD25 #### [facility] [address] [place] [address] Data Center Project Manager: Harpal Adair MD #### AGNES OLIVO, AZN #### [facility] [address] [place], [place] [phone] Data Center Project Manager: Patricio Zuñiga MD #### ANGEL MG, CDP #### [address] [place] [address] Data Center Project Manager: Hilton Armenta MD Hemoglobin A1Con 08-12-2023 Glucose [Mass/Vol] 114 mg/dL Normal [facility] Comment on above: Result Comment: The ADA and AACC recommend providing the estimated average glucose result to permit better patient understanding of their HBA1c result. Performed By: #### P THNCA, FEBC, FERI, GLYHGB, VD25 #### [facility] [address] [place] [address] Data Center Project Manager: Harpal Adair MD #### ARIAN OLIVOTB1, AZN #### [facility] [address] [place] [address] Data Center Project Manager: Patricio Zuñiga MD #### CP, MG, CDP #### [facility] [address] [place], [place] [phone] Data Center Project Manager: Hilton Armenta MD HbA1c (Bld) [Mass fraction] 5.6 % Normal 4.0-6.0 [facility] Comment on above: Performed By: #### P THNCA, FEBC, FERI, GLYHGB, VD25 #### [address] [address] Data Center Project Manager: Harpal Adair MD #### AGNES OLIVO, AZN #### [facility] [address] [place] [address] Data Center Project Manager: Patricio Zuñiga MD #### ANGEL, MG, CDP #### [facility] [address] [place] [address] [place], [place] [phone] Data Center Project Manager: Hilton Armenta MD Iron Binding Cap.on 08-12-20 23 % Fe Saturation 16 % Low 20-55 [facility] Comment on above: Performed By: #### P THNCA, FEBC, FERI, GLYHGB, VD25 #### [address] [address] Data Center Project Manager: Harpal Adair MD #### AGNES OLIVO, AZN #### [facility] [address] [place] [address] Data Center Project Manager: Patricio Zuñiga MD #### CP, MG, CDP #### [facility] [address] [place] [address] [place], [place] [phone] Data Center Project Manager: Hilton Armenta MD Iron [Mass/Vol] 57 ug/dL Normal 37-145 [facility] Comment on above: Performed By: #### P THNCA, FEBC, FERI, GLYHGB, VD25 #### [address] [address] Data Center Project Manager: Harpal Adair MD #### AGNES OLIVO, AZN #### [facility] [address] [place] [address] Data Center Project Manager: Patricio Zuñiga MD #### ANGEL, MG, CDP #### [facility] [address] [place], [place] [phone] Data Center Project Manager: Hilton Armenta MD Total Fe Binding Cap 354 ug/dL Normal 250-450 [facility] Comment on above: Performed By: #### P THNCA, FEBC, FERI, GLYHGB, VD25 #### [address] [phone] Data Center Project Manager: Harpal Adair MD #### AGNES OLIVO, AZN #### [facility] [address] [place], [place] [phone] Data Center Project Manager: Patricio Zuñiga MD #### ANGEL MG, CDP #### [facility] [address] [place] [address] Data Center Project Manager: Hilton Armenta MD Unbound Fe Bind Cap 297 ug/dL Normal 112-347 [facility] Comment on above: Performed By: #### P THNCA, FEBC, FERI, GLYHGB, VD25 #### [address] [phone] Data Center Project Manager: Harpal Adair MD #### AGNES OLIVO, AZN #### [facility] [address] [place] [address] Data Center Project Manager: Patricio Zuñiga MD #### ANGEL, MG, CDP #### [facility] [address] [place] [address] Data Center Project Manager: Hilton Armenta MD Lipid Profileon 08-12-2023 Cholesterol [Mass/Vol] 153 mg/dL Normal <200 [facility] Comment on above: Result Comment: Cholesterol Guidelines: <200 Desirable 200-240 Borderline >240 Undesirable Performed By: #### L IPR #### [facility] [address] [place] [address] Data Center Project Manager: Harpal Adair MD Cholesterol in HDL [Mass/Vol] 68 mg/dL Normal >40 [facility] Comment on above: Result Comment: HDL Guidelines: <40 Undesirable 40-59 Borderline >59 Desirable Performed By: #### L IPR #### [facility] [address] [place] [address] Data Center Project Manager: Harpal Adair MD Cholesterol in LDL [Mass/Vol] 77 mg/dL Normal 0-130 [facility] Comment on above: Result Comment: LDL Guidelines: <100 Desirable 100-129 Near to/above Desirable 130-159 Borderline >159 Undesirable Direct (measured) LDL and calculated LDL are not interchangeable tests. Performed By: #### L IPR #### [facility] [address] [place] [address] Data Center Project Manager: Harpal Adair MD Cholesterol.total/Cho lesterol in HDL [Mass ratio] 2.3 {ratio} Normal <5 [facility] Comment on above: Performed By: #### L IPR #### [facility] [address] [place] [address] Data Center Project Manager: Harpal Adair MD Triglyceride [Mass/Vol] 39 mg/dL Normal <150 [facility] Comment on above: Result Comment: Triglyceride Guidelines: <150 Desirable 150-199 Borderline 200-499 High >499 Very high Based on AHA Guidelines for fasting triglyceride, June 2012. Performed By: #### L IPR #### [facility] [address] [place] [address] Data Center Project Manager: Harpal Adair MD Magnesiumon 08-12-2023 Magnesium [Mass/Vol] 2.1 mg/dL Normal 1.6-2.6 [facility] Comment on above: Performed By: #### P THNCA, FEBC, FERI, GLYHGB, VD25 #### [facility] [address] [place] [address] Data Center Project Manager: Harpal Adair MD #### AGNES LOIVO, AZN #### [facility] [address] [place], [place] [phone] Data Center Project Manager: Patricio Zuñiga MD #### ANGEL, MG, CDP #### [facility] [address] [place] [address] [place] [address] Data Center Project Manager: Hilton Armenta MD PTH, Intacton 08-12-2023 PTH, Intact 17.1 pg/mL Normal 14.0-72.0 [facility] Comment on above: Result Comment: SAMP LES FROM PATIENTS ROUTINELY RECEIVING HIGH DOSE BIOTIN THERAPY MAY SHOW FALSELY DEPRESSED RESULTS. ADDITIONAL INFORMATION MAY BE REQUIRED FOR DIAGNOSIS. Performed By: #### P BAILEY, ALFONSO, FERI, GLYHGB, VD25 #### [address] [phone] Data Center Project Manager: Harpal Adair MD #### AGNES OLIVO, AZN #### [facility] [address] [place] [address] Data Center Project Manager: Patricio Zuñiga MD #### ANGEL, MG, CDP #### [address] [place] [address] Data Center Project Manager: Hilton Armenta MD Thyroid Stim. Horm.on 2022 Thyroid Stim. Horm. 1.50 uIU/mL Normal 0.30-5.00 [facility] Comment on above: Performed By: #### P DENNISA, FEBC, FERI, GLYHGB, VD25 #### [address] [place], [place] [phone] Data Center Project Manager: Harpal Adair MD #### AGNES OLIVO, AZN #### [facility] [address] [place], [place] [id number] Data Center Project Manager: Patricio Zuñiga MD #### ANGEL, MG, CDP #### [facility] [address] [place] [address] Data Center Project Manager: Hilton Armenta MD Thyroxine, Freeon 08-12-2023 Thyroxine, Free 1.2 ng/dL Normal 0.9-1.7 [facility] Comment on above: Performed By: #### P THNCA, FEBC, FERI, GLYHGB, VD25 #### [facility] [address] [place], [place] [phone] Data Center Project Manager: Harpal Adair MD #### PALLAVI, AVITB1, AZN #### [facility] [address] [place], [place] [phone] Data Center Project Manager: Patricio Zuñiga MD #### CP, MG, CDP #### [facility] [address] [place] [address] Data Center Project Manager: Hilton Armenta MD US GALLBLADDER RUQon 023 US GALLBLADDER RUQ EXAMINATION: RIGHT UPPER QUADRANT ULTRASOUND 08/12/2023 7:25 am COMPARISON: None. HISTORY: ORDERING SYSTEM PROVIDED HISTORY: [employer] pain TECHNOLOGIST PROVIDED HISTORY: This procedure can be scheduled via [employer]. Access your [employer] account by visiting [email or web address]. FINDINGS: LIVER: The liver demonstrates normal echogenicity [...] Bret Monson DO 08/12/23 Final result Normal [facility] Vitamin D 25 OHon 08-12-2023 Vitamin D 25 OH 45.1 ng/mL Normal >29.9 [facility] Comment on above: Result Comment: Reference Range: Vitamin D status Range Deficiency <20 ng/mL Mild Deficiency 20-30 ng/mL Sufficiency 30-100 ng/mL Toxicity >100 ng/mL Performed By: #### P THNCA, FEBC, FERI, GLYHGB, VD25 #### [facility] [address] [place] [address] Data Center Project Manager: Harpal Adair MD #### TYREE OLIVO1, AZN #### [facility] [address] [place] [address] Data Center Project Manager: Patricio Zuñiga MD #### CP, MG, CDP #### [facility] [address] [place] [address] Data Center Project Manager: Hilton Armenta MD Patient Correspondenceon Patient Correspondence [id number] F Normal [facility] CBC with Diffon 07-30-2023 Abs. Basophil 0.08 k/uL Normal 0.00-0.20 [facility] Comment on above: Performed By: #### T BRIANNA, CDP, LIP, CP #### [facility] [address] [place] [address] Data Center Project Manager: Harpal Adair MD Abs.Imm.Granulocyte 0.04 k/uL Normal 0.00-0.30 [facility] Comment on above: Performed By: #### T SH, CDP, LIP, CP #### [facility] [address] [place] [address] Data Center Project Manager: Harpal Adair MD Abs.Neutrophil (Seg) 6.94 k/uL Normal 1.50-8.10 [facility] Comment on above: Performed By: #### T SH, CDP, LIP, CP #### [facility] [address] [place] [address] Data Center Project Manager: Harpal Adair MD Basophils/100 WBC (Bld) 1 % Normal 0-2 [facility] Comment on above: Performed By: #### T SH, CDP, LIP, CP #### [facility] [address] [place] [address] Data Center Project Manager: Harpal Adair MD Eosinophils (Bld) [#/Vol] 0.23 10*3/uL Normal 0.00-0.44 [facility] Comment on above: Performed By: #### T SH, CDP, LIP, CP #### [facility] [address] [place] [address] Data Center Project Manager: Harpal Adair MD Eosinophils/100 WBC (Bld) 2 % Normal 1-4 [facility] Comment on above: Performed By: #### T SH, CDP, LIP, CP #### [facility] [address] [place] [address] Data Center Project Manager: Harpal Adair MD Erythrocyte distribution width (RBC) [Ratio] 15.3 % High 11.8-14.4 [facility] Comment on above: Performed By: #### T SH, CDP, LIP, CP #### [facility] [address] [place] [address] Data Center Project Manager: Harpal Adair MD Hematocrit (Bld) [Volume fraction] 38.8 % Normal 36.3-47.1 [facility] Comment on above: Performed By: #### T SH, CDP, LIP, CP #### [facility] [address] [place] [address] Data Center Project Manager: Harpal Adair MD Hemoglobin (Bld) [Mass/Vol] 12.5 g/dL Normal 11.9-15.1 [facility] Comment on above: Performed By: #### T SH, CDP, LIP, CP #### [address] [address] Data Center Project Manager: Harpal Adair MD Immature granulocytes/100 WBC (Bld) 0 % Normal 0 [facility] Comment on above: Performed By: #### T SH, CDP, LIP, CP #### [address] [address] Data Center Project Manager: Harpal Adair MD Lymphocytes (Bld) [#/Vol] 2.19 10*3/uL Normal 1.10-3.70 [facility] Comment on above: Performed By: #### T SH, CDP, LIP, CP #### [address] [address] Data Center Project Manager: Harpal Adair MD Lymphocytes/100 WBC (Bld) 21 % Low 24-43 [facility] Comment on above: Performed By: #### T SH, CDP, LIP, CP #### [address] [address] Data Center Project Manager: Harpal Adair MD MCH (RBC) [Entitic mass] 30.6 pg Normal 25.2-33.5 [facility] Comment on above: Performed By: #### T SH, CDP, LIP, CP #### [address] [address] Data Center Project Manager: Harpal Adair MD MCHC (RBC) [Mass/Vol] 32.2 g/dL Normal 28.4-34.8 [facility] Comment on above: Performed By: #### T SH, CDP, LIP, CP #### [address] [address] Data Center Project Manager: Harpal Adair MD MCV (RBC) [Entitic vol] 94.9 fL Normal 82.6-102.9 [facility] Comment on above: Performed By: #### T SH, CDP, LIP, CP #### [address] [address] Data Center Project Manager: Harpal Adair MD Monocytes (Bld) [#/Vol] 0.74 10*3/uL Normal 0.10-1.20 [facility] Comment on above: Performed By: #### T SH, CDP, LIP, CP #### [address] [address] Data Center Project Manager: Harpal Adair MD Monocytes/100 WBC (Bld) 7 % Normal 3-12 [facility] Comment on above: Performed By: #### T SH, CDP, LIP, CP #### [address] [address] Data Center Project Manager: Harpal Adair MD Neutrophil (Seg) 69 % High 36-65 [facility] Comment on above: Performed By: #### T SH, CDP, LIP, CP #### [address] [address] Data Center Project Manager: Harpal Adair MD NRBC Automated 0.0 per 100 WBC Normal 0.0 [facility] Comment on above: Performed By: #### T SH, CDP, LIP, CP #### [address] [address] Data Center Project Manager: Harpal Adair MD Platelet mean volume (Bld) [Entitic vol] 12.0 fL Normal 8.1-13.5 [facility] Comment on above: Performed By: #### T SH, CDP, LIP, CP #### [address] [address] Data Center Project Manager: Harpal Adair MD Platelets (Bld) [#/Vol] 348 10*3/uL Normal 138-453 [facility] Comment on above: Performed By: #### T SH, CDP, LIP, CP #### [address] [address] Data Center Project Manager: Harpal Adair MD RBC (Bld) [#/Vol] 4.09 10*6/uL Normal 3.95-5.11 [facility] Comment on above: Performed By: #### T SH, CDP, LIP, CP #### [address] [address] Data Center Project Manager: Harpal Adair MD RBC morphology finding Nom (Bld) ANISOCYTOSIS PRESENT Normal [facility] Comment on above: Performed By: #### T SH, CDP, LIP, CP #### [address] [address] Data Center Project Manager: Harpal Adair MD WBC (Bld) [#/Vol] 10.2 10*3/uL Normal 3.5-11.3 [facility] Comment on above: Performed By: #### T SH, CDP, LIP, CP #### [facility] [address] [place] [address] Data Center Project Manager: Harpal Adair MD Comp Metabolic Profon 2022 Bilirubin [Mass/Vol] mg/dL Low 0.3-1.2 [facility] Comment on above: Performed By: #### T SH, CDP, LIP, CP #### [facility] [address] [place] [address] Data Center Project Manager: Harpal Adair MD Albumin [Mass/Vol] 4.4 g/dL Normal 3.5-5.2 [facility] Comment on above: Performed By: #### T SH, CDP, LIP, CP #### [facility] [address] [place] [address] Data Center Project Manager: Harpal Adair MD Albumin/Glob Ratio 1.4 Normal 1.0-2.5 [facility] Comment on above: Performed By: #### T SH, CDP, LIP, CP #### [facility] [address] [place] [address] Data Center Project Manager: Harpal Adair MD Alkaline Phos 76 U/L Normal 35-104 [facility] Comment on above: Performed By: #### T SH, CDP, LIP, CP #### [address] [address] Data Center Project Manager: Harpal Adair MD ALT [Catalytic activity/Vol] 20 U/L Normal 5-33 [facility] Comment on above: Performed By: #### T SH, CDP, LIP, CP #### [address] [address] Data Center Project Manager: Harpal Adair MD Anion gap [Moles/Vol] 11 mmol/L Normal 9-17 [facility] Comment on above: Performed By: #### T SH, CDP, LIP, CP #### [address] [address] Data Center Project Manager: Harpal Adair MD AST [Catalytic activity/Vol] 22 U/L Normal <32 [facility] Comment on above: Performed By: #### T SH, CDP, LIP, CP #### [address] [address] Data Center Project Manager: Harpal Adair MD Calcium [Mass/Vol] 9.6 mg/dL Normal 8.6-10.4 [facility] Comment on above: Performed By: #### T SH, CDP, LIP, CP #### [facility] [address] [place] [address] Data Center Project Manager: Harpal Adair MD Chloride [Moles/Vol] 105 mmol/L Normal 98-107 [facility] Comment on above: Performed By: #### T SH, CDP, LIP, CP #### [facility] [address] [place] [address] Data Center Project Manager: Harpal Adair MD CO2 [Moles/Vol] 23 mmol/L Normal 20-31 [facility] Comment on above: Performed By: #### T SH, CDP, LIP, CP #### [address] [address] Data Center Project Manager: Harpal Adair MD Creatinine [Mass/Vol] 0.6 mg/dL Normal 0.5-0.9 [facility] Comment on above: Performed By: #### T SH, CDP, LIP, CP #### [address] [address] Data Center Project Manager: Harpal Adair MD GFR/1.73 sq M.predicted among non-blacks MDRD (S/P/Bld) [Vol rate/Area] mL/min/{1.73_m2} Normal >60 [facility] Comment on above: Result [...] renal tubular secretion. Performed By: #### T SH, CDP, LIP, CP #### [facility] [address] [place] [address] Data Center Project Manager: Harpal Adair MD Glucose [Mass/Vol] 73 mg/dL Normal 70-99 [facility] Comment on above: Performed By: #### T SH, CDP, LIP, CP #### [facility] [employer] [address] [place] [address] Data Center Project Manager: Harpal Adair MD Potassium [Moles/Vol] 4.0 mmol/L Normal 3.7-5.3 [facility] Comment on above: Performed By: #### T SH, CDP, LIP, CP #### [address] [address] [employer] Center Project Manager: Harpal Adair MD Protein [Mass/Vol] 7.5 g/dL Normal 6.4-8.3 [facility] Comment on above: Performed By: #### T SH, CDP, LIP, CP #### [address] [address] Data Center Project Manager: Harpal Adair MD Sodium [Moles/Vol] 139 mmol/L Normal 135-144 [facility] Comment on above: Performed By: #### T SH, CDP, LIP, CP #### [facility] [employer] [address] [place] [address] Data Center Project Manager: Harpal Adair MD Urea nitrogen [Mass/Vol] 15 mg/dL Normal 6-20 [facility] Comment on above: Performed By: #### T SH, CDP, LIP, CP #### [address] [address] Data Center Project Manager: Harpal Adair MD Lipaseon 07-30-2023 Lipase [Catalytic activity/Vol] 45 U/L Normal 13-60 [facility] Comment on above: Performed By: #### T SH, CDP, LIP, CP #### [facility] [employer] [address] [place] [address] Data Center Project Manager: Harpal Adair MD Thyroid Stim. Horm.on 2022 Thyroid Stim. Horm. 1.18 uIU/mL Normal 0.30-5.00 [facility] Comment on above: Performed By: #### T SH, CDP, LIP, CP #### [facility] [employer] [address] [place] [address] [employer] Center Project Manager: Harpal Adair MD UA w/Reflex Cultureon 2022 Bilirubin, SemiQt,Ur Negative Normal NEG [facility] Comment on above: Performed By: #### U AX #### [facility] [employer] [address] [place] [address] Data Center Project Manager: Harpal Adair MD Blood, Urine Negative Normal NEG [facility] Comment on above: Performed By: #### U AX #### [facility] [employer] [address] [place] [address] Data Center Project Manager: Harpal Adair MD Clarity (U) Clear Normal CLEAR [facility] Comment on above: Performed By: #### U AX #### [facility] [employer] [address] [place] [address] Data Center Project Manager: Harpal Adair MD Color (U) Yellow Normal YEL [facility] Comment on above: Performed By: #### U AX #### [address] [address] Data Center Project Manager: Harpal Adair MD Comment Microscopic exam not performed based on chemical results unless requested in Normal [facility] Comment on above: Result Comment: orig inal order. Performed By: #### U AX #### [address] [address] Data Center Project Manager: Harpal Adair MD Glucose Ql (U) Negative Normal NEG [facility] Comment on above: Performed By: #### U AX #### [facility] [employer] [address] [place] [address] Data Center Project Manager: Harpal Adair MD Ketones Ql (U) Negative Normal NEG [facility] Comment on above: Performed By: #### U AX #### [facility] [employer] [address] [place] [address] Data Center Project Manager: Harpal Adair MD Leukocyte esterase Test strip Ql (U) Negative Normal NEG [facility] Comment on above: Performed By: #### U AX #### [facility] [employer] [address] [place] [address] Data Center Project Manager: Harpal Adair MD Nitrite,Ur Negative Normal NEG [facility] Comment on above: Performed By: #### U AX #### [facility] [address] [place] [address] Data Center Project Manager: Harpal Adair MD PH,Ur 5.0 Normal 5.0-8.0 [facility] Comment on above: Performed By: #### U AX #### [facility] [address] [place] [address] Data Center Project Manager: Harpal Adair MD Protein Ql (U) Negative Normal NEG [facility] Comment on above: Performed By: #### U AX #### [facility] [address] [place] [address] Data Center Project Manager: Harpal Adair MD Spec. [place],Ur 1.020 Normal 1.005-1.030 [facility] Comment on above: Performed By: #### U AX #### [address] [address] Data Center Project Manager: Harpal Adair MD Urobilinogen,Ur Normal Normal 0.0-1.0 [facility] Comment on above: Performed By: #### U AX #### [address] [address] Data Center Project Manager: Harpal Adair MD ED Note-Physicianon 10-31-20 23 ED Note-Physician Basic Information Time Seen: Torres GERONIMO, Shama Schaefer 06/09/2023 15:45 Chief Complaint Pt presents to ED with complaints of KAUR onset today. History of Present Illness This patient presents to the emergency department chief complaint of maryam. She states that she has spent $10,000 in the last 2 weeks. She did see her psychiatrist at [facility] today and they are starting her on [...] paranoia, anhedonia, lack of energy. + maryam Hematologic/lymphatic: Denies any purpura, petechiae, excessive bleeding, [...] of care. (more content not included)... Normal [facility] Comment on above: Result Comment: Elec tronically Signed By: Shama Macdnoald PA-C\.br\Date and Time Signed: 07/14/23 19:57 EDT\.br\Electronically Co-Signed By: Alexis Shukla DO\.benito\Date and Time Co-Signed: 07/20/23 07:11 EST COVID Quick Testingon 2022 Result Negative [employer] Other Consultation Noteon 07-08-20 23 Consultation Note [id number]#[id number] F Normal [facility] Consent for Treatmenton 06-14 Consent for Treatment [id number]#1.00TIF F Normal [facility] ED Clinical Summaryon 2022 ED Clinical Summary (Inserted Image. Jordana ble to display) [place] [id number] ED Clinical Summary Person Information Name: SHAZIA CHOU [facility] Age: 32 Years : 1990 Sex: Female Language: Nepalese PCP: Jennie Ames DO Marital Status: Phone: [phone] MRN: Visit Id: Visit Reason: Headache; Neck [...] 07/02/2023 15:29:14 07/02/2023 15:29:14 07/02/2023 15:29:14 ADDRESS: [address] [place] [phone] PHYS DOC NOTES: MEDICAL INFORMATION: Prescriptions Given: [...] EDUCATION INFORMATION: Instructions: Follow up: DIAGNOSIS: Normal [facility] ED Patient Education Noteon 07-02-2023 ED Patient Education Note Normal [facility] ED Patient Summaryon 023 ED Patient Summary (Inserted Image. Jordana ble to display) [address] [address] Patient Discharge Instructions Person Information Name: SHAZIA CHOU Age: 32 Years Arrival Date: 07/02/2023 14:03:05 Discharge Diagnosis: Primary Care Physician: Jennie Ames DO Provider Information Primary Provider: Bakari Chester DO [employer] Supervisor:Merari Polanco PA-C The exam and treatment you received in the Emergency Department were for an urgent problem and are not intended as complete care. It is important that you follow up with a doctor, nurse practitioner, or physician?s field administrative assistant for ongoing care. If your [...] opioids can be used to help relieve cdrikcva-zz-ikqzbp pain and are often prescribed following a [...] guidance from the Food and Drug Administration (www.fda.gov/Drugs/Resou rcesForYou). ? Visit www.cdc.gov/drugoverdose to learn about the risks of opioids abuse and overdose. ? If you believe you may be struggling with addiction, tell your health client care specialist and ask for guidance or call [facility] National Helpline at 1-213-452-HELP. v Source: US Department of Health and Human Services/Center for Disease Control & Prevention [facility] Medications Given: Medication Dose Route No medication (more content not included)... Normal [facility] Consultation Noteon 06-22-20 Consultation Note [id number]#[id number] Normal [facility] Consultation Noteon 06-19-20 Consultation Note [id number]#1.00TIF F [facility] CNPNon 06-15-2023 CNPN Telephone (NEADFV) -------- SHAZIA CHOU ([id number]) 1990 F Date Time Provider Department 06/15/23 EILEEN MANZANO During your visit today, we recorded the following information about you: Bunny Durbin, MARCO 06/15/2023 4:57 PM Signed Received clinical notes and test results from [facility] ED visit from 06/10/23. 13 pages. Scanned to chart via [employer]. Routed to provider for review Glen Singh [...] is not alleviating the problem. Patient # [phone] Sophiajil Gorge 07/03/2023 12:15 PM Signed Per instructions from Dr. Manzano. LM for patient, also sent message via [facility]. She needs to be back on diamox [...] 40 mg by mouth once daily. - enllkdnhvllq-uid-piee-FA -vit K (BARIATRIC MULTIVITAMINS) 45 mg iron- 800 [...] Encounter Status:Closed by GORGE BETANCUR on 07/03/23 [facility] GLORIA Telephone (NIQ) -------- SHAZIA CHOU ([id number]) 1990 F Date Time Provider Department 06/15/23 EILEEN MANZANO During your visit today, we recorded the following information about you: Fabby Fam 06/15/2023 3:[address] Brain report from [facility]. Scanned to chart for review. Bunny Durbin RN 06/15/2023 4:[address] brain results available in scanned documents for your review. Bunny Durbin RN 06/16/2023 3:04 PM Signed Call to patient without answer. Voice message left asking her to review her [employer] message with a response from . Informed [...] 40 mg by mouth once daily. - vzvkpsfyphda-pud-flld-FA -vit K (BARIATRIC MULTIVITAMINS) 45 mg iron- 800 [...] Encounter Status:Closed by [facility] (NECVS8[facility] -------- SONYASHAZIA ([id number]) 1990 F Date Time Provider Department 06/11/23 MANEILEENVS8 During your visit today, we recorded the following information about you: Daisy Martínez 06/11/2023 2:04 PM Signed CV PHONE Name of caller : Salbador Jolly Relationship to patient : [facility] If not self Will need patient permission to release results or disclose health information with called documented in . Patient identified by Name and Date of . ( Shazia Marksheila, 1990). 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 The results are available [facility]. Patient is still experiencing vision changes and headaches. [phone] Thank you calling [facility]. You will receive a return call within 48 hours ( or 2 business days if close to the weekend). If you feel that this is an urgent issue and needs immediate attention, it is recommended that you contact your primary care provider office or proceed to your nearest Urgent Care Center of Emergency Room ED for evaluation/treatment. Bunny Durbin RN 06/12/2023 10:25 AM Signed Spoke with Karin at radiology at [facility]. She will fax the CT Brain results to our office. Fax number provided. Bunny Durbin RN 06/12/2023 2:53 PM Signed As of this hour, no fax received for CT Brain . Spoke with car sales representative again in radiology and different [...] was evaluated in the ED today at [facility] for complaints of 'feeling like someone was [...] 40 mg by mouth once daily. - ahegasgbbvvz-bcc-zrfy-FA -vit K (BARIATRIC MULTIVITAMINS) 45 mg iron- 800 [...] Status:Closed by BUNNY DURBIN on 06/15/23 Normal [facility] Discharge Instructionson Discharge Instructions [id number]#1.00CD :127 Normal [facility] Acetamnphn Lvlon 06-09-2023 Acetaminophen [Mass/Vol] ug/mL Low 15-30 [facility] Comment on above: Performed By: #### 2 669161, 8591831, 1272097, 3060182, 3341236, 35449962 ####[facility] [address] [place] [address] Auto Diffon 06-09-2023 Basophils/100 WBC (Bld) 0.6 % Normal 0.0-2.0 [facility] Comment on above: Order Comment: Order Added by Discern Expert. Performed By: #### 2 219216, 0910491, 5211762, 2574192, 3931706, 67425021 ####[facility] [address] [place] [address] Basophils/Leukocytes Auto (Bld) [Pure # fraction] 0.0 E9/L Normal 0.0-0.2 [facility] Comment on above: Order Comment: Order Added by Discern Expert. Performed By: #### 2 716943, 2145626, 4975433, 9500060, 5745146, 63442399 ####[facility] [address] [place] [address] Eosinophils/100 WBC (Bld) 1.9 % Normal 0.0-8.0 [facility] Comment on above: Order Comment: Order Added by Discern Expert. Performed By: #### 2 745202, 6158762, 2909695, 8835506, 8258958, 76707639 ####[place] [address] [place] [address] Eosinophils/Leukocyte s Auto (Bld) [Pure # fraction] 0.2 E9/L Normal 0.0-0.5 [facility] Comment on above: Order Comment: Order Added by Discern Expert. Performed By: #### 2 122610, 2349736, 7176314, 9664796, 3593094, 11907946 ####[address] [address] Lymphocytes/100 WBC (Bld) 23.4 % Normal 14.0-50.0 [facility] Comment on above: Order Comment: Order Added by Discern Expert. Performed By: #### 2 310729, 7677747, 2954220, 0398439, 5678336, 61602693 ####[address] [address] Lymphocytes/Leukocyte s Auto (Bld) [Pure # fraction] 2.0 E9/L Normal 1.0-4.0 [facility] Comment on above: Order Comment: Order Added by Discern Expert. Performed By: #### 2 546733, 0303384, 2270250, 4927285, 2181036, 47993857 ####[address] [address] Monocytes/100 WBC (Bld) 6.9 % Normal 4.0-14.0 [facility] Comment on above: Order Comment: Order Added by Discern Expert. Performed By: #### 2 620117, 9134212, 7705101, 7758696, 4367082, 65044602 ####[address] [address] Monocytes/Leukocytes Auto (Bld) [Pure # fraction] 0.6 E9/L Normal 0.2-1.0 [facility] Comment on above: Order Comment: Order Added by Discern Expert. Performed By: #### 2 156360, 5559784, 0708655, 2653851, 4472688, 73481109 ####[place] [address] [place] [address] Neutrophils/100 WBC (Bld) 67.2 % Normal 36.0-75.0 [facility] Comment on above: Order Comment: Order Added by Discern Expert. Performed By: #### 2 517131, 4609247, 4476272, 6106811, 3004353, 99439495 ####[place] [address] [place] [address] Neutrophils/Leukocyte s Auto (Bld) [Pure # fraction] 5.6 E9/L Normal 2.0-7.5 [facility] Comment on above: Order Comment: Order Added by Discern Expert. Performed By: #### 2 526911, 5189864, 0582428, 7493479, 2273858, 47595223 ####[address] [address] CBC w/ Auto Diffon 3 Erythrocyte distribution width (RBC) [Ratio] 18.2 % High 10.9-14.2 [facility] Comment on above: Performed By: #### 2 900374, 0854809, 0975634, 7346653, 2115324, 84749155 ####[place] [address] [place] [address] Hematocrit (Bld) [Volume fraction] 34.3 % Normal 34.0-46.0 [facility] Comment on above: Performed By: #### 2 792649, 8549147, 0943140, 1008628, 8356097, 01624472 ####[place] [address] [place] [address] Hemoglobin (Bld) [Mass/Vol] 11.5 g/dL Low 12.0-16.0 [facility] Comment on above: Performed By: #### 2 296282, 4687567, 7889230, 3130270, 7327159, 08451977 ####[place] [address] [place] [address] MCH (RBC) [Entitic mass] 30.6 pg Normal 27.0-34.0 [facility] Comment on above: Performed By: #### 2 336185, 7132498, 0732538, 3780442, 3152917, 08136697 ####[place] [place] [address] MCHC (RBC) [Mass/Vol] 33.6 g/dL Normal 31.4-36.0 [facility] Comment on above: Performed By: #### 2 309344, 6735401, 8491132, 2751365, 2740250, 18525293 ####[address] [address] MCV (RBC) [Entitic vol] 91.0 fL Normal 80.0-100.0 [facility] Comment on above: Performed By: #### 2 071320, 6578442, 0814686, 3431534, 3134437, 81463816 ####[address] [address] Platelet mean volume (Bld) [Entitic vol] 9.8 fL Normal 6.4-10.8 [facility] Comment on above: Performed By: #### 2 491533, 6502800, 6892189, 6494242, 3764018, 66773895 ####[address] [address] Platelets (Bld) [#/Vol] 283.0 E9/L Normal 150.0-500.0 [facility] Comment on above: Performed By: #### 2 989913, 4210881, 7690618, 8402044, 3152940, 58004133 ####[place] [place] [address] RBC (Bld) [#/Vol] 3.8 E12/L Low 4.3-5.9 [facility] Comment on above: Performed By: #### 2 895831, 0157643, 1444158, 2836593, 6727294, 59005718 ####[facility] [address] [place] [address] WBC corrected for nucl RBC Auto (Bld) [#/Vol] 8.4 E9/L Normal 4.0-11.0 [facility] Comment on above: Performed By: #### 2 887154, 7733238, 0491949, 5629206, 6961142, 17428446 ####[place] [address] [place] [address] CMPon 06-09-2023 Albumin [Mass/Vol] 4.1 g/dL Normal 3.3-5.0 [facility] Comment on above: Performed By: #### 2 799733, 8290280, 3837251, 7780367, 0233672, 96999619 ####[place] [address] [place] [address] Albumin/Globulin (S) [Mass conc ratio] 1.3 Normal 1.1-2.2 [facility] Comment on above: Performed By: #### 2 191438, 5770009, 2604627, 8378316, 0569757, 68419296 ####[place] [address] [place] [address] ALP [Catalytic activity/Vol] 58 Int._Unit/L Normal 21-98 [facility] Comment on above: Performed By: #### 2 860462, 8207152, 8982557, 0150106, 8817641, 38609878 ####[place] [address] [place] [address] ALT No additional P-5'-P [Catalytic activity/Vol] 18 Int._Unit/L Normal 6-46 [facility] Comment on above: Performed By: #### 2 599563, 1440539, 2993514, 7661909, 7756620, 08959815 ####[place] [place] [address] AST [Catalytic activity/Vol] 20 Int._Unit/L Normal 5-43 [facility] Comment on above: Performed By: #### 2 080570, 7777604, 8571644, 2980384, 1585742, 38346817 ####[facility] [address] [place] [address] Bilirubin [Mass/Vol] 0.1 mg/dL Normal 0.0-1.1 [facility] Comment on above: Performed By: #### 2 639950, 0081450, 1669308, 5212669, 7642418, 03375504 ####[facility] [address] [place] [address] Creatinine [Mass/Vol] 0.6 mg/dL Normal 0.5-1.3 [facility] Comment on above: Performed By: #### 2 007271, 4820180, 7648942, 7208343, 7657154, 28087888 ####[facility] [address] [place] [address] Globulin (S) [Mass/Vol] 3.2 g/dL Normal 1.4-4.0 [facility] Comment on above: Performed By: #### 2 398955, 1895526, 1734070, 6287503, 0671059, 17005366 ####[facility] [address] [place] [address] Protein [Mass/Vol] 7.3 g/dL Normal 6.0-7.8 [facility] Comment on above: Performed By: #### 2 197640, 5006689, 5999493, 5670663, 8786731, 21973494 ####[facility] [address] [place] [address] Urea nitrogen [Mass/Vol] 15 mg/dL Normal 5-21 [facility] Comment on above: Performed By: #### 2 664839, 9082294, 7685692, 2728288, 1398881, 94442012 ####[facility] [address] [place] [address] Urea nitrogen/Creatinine [Mass ratio] 25 No Units High 10-20 [facility] Comment on above: Performed By: #### 2 475887, 1699717, 6449656, 5720224, 6121679, 70009961 ####[facility] [address] [place] [address] Anion gap [Moles/Vol] 13 mmol/L Normal 6-16 [facility] Comment on above: Performed By: #### 2 134319, 3310314, 4518682, 5034043, 4008355, 13374726 ####[facility] [address] [place] [address] Calcium [Mass/Vol] 9.3 mg/dL Normal 8.9-11.1 [facility] Comment on above: Performed By: #### 2 509297, 0104334, 6268708, 7389448, 0695325, 83240788 ####[facility] [address] [place] [address] Chloride [Moles/Vol] 107 mmol/L Normal 101-111 [facility] Comment on above: Performed By: #### 2 666090, 8574248, 1346784, 0261808, 4156242, 76261066 ####[facility] [address] [place] [address] CO2 [Moles/Vol] 23 mmol/L Normal 21-31 [facility] Comment on above: Performed By: #### 2 445076, 3947054, 6769648, 6581171, 0720098, 43776434 ####[facility] [address] [place] [address] Glucose [Mass/Vol] 91 mg/dL Normal 55-199 [facility] Comment on above: Result Comment: If t his glucose result represents a fasting glucose, interpretation should refer to the following reference range: 55-99 mg/dL Performed By: #### 2 483745, 7563755, 3957269, 2481571, 6972254, 36673599 ####[facility] [address] [place] [address] Potassium [Moles/Vol] 3.6 mmol/L Normal 3.5-5.3 [facility] Comment on above: Performed By: #### 2 346999, 0355973, 1919693, 0992641, 8529175, 91060293 ####[facility] [address] [place] [address] Sodium [Moles/Vol] 139 mmol/L Normal 135-145 [facility] Comment on above: Performed By: #### 2 292212, 6761064, 9253354, 0213649, 1393068, 30808117 ####[facility] [address] [place] [address] Consent for Treatmenton 05-16 Consent for Treatment [id number]#[id number]: 127 Normal [facility] ED Clinical Summaryon 2022 ED Clinical Summary (Inserted Image. Jordana ble to display) [address] [address] ED Clinical Summary Person Information Name: SHAZIA CHOU [facility] Age: 32 Years : 1990 Sex: Female Language: Nepalese PCP: Jennie Ames DO Marital Status: Phone: [phone] MRN: Visit Id: Visit Reason: Headache; HEADACHE [...] 06/09/2023 18:42:22 06/09/2023 18:42:22 06/09/2023 18:42:22 ADDRESS: [address] [place] [phone] PHYS DOC NOTES: MEDICAL INFORMATION: Prescriptions Given: [...] (at bedtime). PATIENT EDUCATION INFORMATION: Instructions: Paresthesia, Vxtl-hj-Auyo; Migraine Headache, Xwxv-rb-Fiwx Follow up: With: Address: When: [facility] In 3 days 06/12/2023 With: Address: When: Jennie Ames [facility] Shakir De La Paz, Mic C, [facility] [address] [place] [address] [facility] () In 3 days 06/12/2023 DIAGNOSIS: 1:Headache; 2:Paresthesia of arm Normal [facility] ED Patient Education Noteon 06-09-2023 ED Patient [...] liquor (44 mL). General instructions ? Take syio-jgh-zejefmb and prescription medicines only as told by [...] provider. Document Revised: 05/12/2022 Document Reviewed: 05/12/2022 [employer] Patient Education ? 2022 [employer] Migraine Headache A migraine headache is [...] ? Tiredness. (more content not included)... Normal [facility] ED Patient Summaryon 023 ED Patient Summary (Inserted Image. Jordana ble to display) [address] [address] Patient Discharge Instructions Person Information Name: SHAZIA CHOU Age: 32 Years Arrival Date: 06/09/2023 15:33:36 Discharge Diagnosis: 1:Headache; 2:Paresthesia of arm Primary Care Physician: Jennie Ames DO Provider Information Primary Provider: Alexis Shukla DO [employer] Supervisor:None The exam and treatment you received in the Emergency Department were for an urgent problem and are not intended as complete care. It is important that you follow up with a doctor, nurse practitioner, or physician?s field administrative assistant for ongoing care. If your symptoms become worse or you do not improve as expected and you are unable to reach your usual health care provider, you should return to the Emergency Department. We are available 24 hours a day. SONYA SHAZIA L has been given the following list of patient education materials, prescriptions and follow-up instructions: Follow-up Instructions: With: Address: When: [facility] In 3 days 06/12/2023 With: Address: When: Jennie Ames [address], [place], [facility] [address] [place] [address] [facility] (1) In 3 days 06/12/2023 In the event that this physician does not participate in your insurance network, please consult with your insurance company to find a nearby participating provider. Patient Education Materials: Paresthesia, Thea-xf-Hwfb; Migraine Headache, Jbip-bz-Nxug A MESSAGE TO ALL PATIENTS REGARDING OPIOIDS PRESCRIPTION OPIOIDS: WHAT YOU NEED TO KNOW Prescription opioids can be used to help relieve mkynmlrn-mi-vvmiex pain and are often prescribed following a [...] guidance from the Food and Drug Administration (www.fda.gov/Drugs/Resou rcesForYou). ? Visit www.cdc.gov/drugoverdose to learn about the risks of opioids abuse and overdose. ? If you believe you may be struggling with addiction, tell (more content not included)... Normal [facility] Ethanolon 06-09-2023 Ethanol [Mass/Vol] mg/dL Normal <=7 [facility] Comment on above: Performed By: #### 2 804419 ####[facility] [address] [place] [address] Salicylateon 06-09-2023 Salicylates [Mass/Vol] mg/dL Low 6-29 [facility] Comment on above: Performed By: #### 2 064134, 2008439, 0468564, 3005626, 8109326, 41096201 ####[facility] [address] [place] [address] U Drug Screenon 06-09-2023 Amphetamines Screen method >1000 ng/mL Ql (U) Negative Normal Negative [facility] Comment on above: Result Comment: Nega tive Cutoff: <1000 ng/mL Performed By: #### 2 590658 ####[facility] [address] [place] [address] Barbiturates Screen Ql (U) Negative Normal Negative [facility] Comment on above: Result Comment: Nega tive Cutoff: <200 ng/mL Performed By: #### 2 728906 ####[facility] [address] [place] [address] Benzodiazepines Ql (U) Negative Normal Negative [facility] Comment on above: Result Comment: Nega tive Cutoff: <200 ng/mL Performed By: #### 2 525543 ####[facility] [address] [place] [address] Cocaine Ql (U) Negative Normal Negative [facility] Comment on above: Result Comment: Nega tive Cutoff: <300 ng/mL Performed By: #### 2 594236 ####[address] [place] [address] Opiates Screen Ql (U) Negative Normal Negative [facility] Comment on above: Result Comment: Nega tive Cutoff: <300 ng/mL Performed By: #### 2 002905 ####[address] [place] [address] Phencyclidine Screen method >25 ng/mL Ql (U) Negative Normal Negative [facility] Comment on above: Result Comment: Nega tive Cutoff: <25 ng/mL These drug screen results are to be used for medical (i.e., treatment) purposes only. Unconfirmed drug screening results must not be used for non-medical purposes (e.g., employment testing, legal testing). Performed By: #### 2 220991 ####[address] [place] [address] Tetrahydrocannabinol Screen method >50 ng/mL Ql (U) Negative Normal Negative [facility] Comment on above: Result Comment: Nega tive Cutoff: <50 ng/mL Performed By: #### 2 927660 ####[facility] [address] [place] [address] UA With Cult Reflexon 2022 Bilirubin Ql (U) Negative Normal Negative [facility] Comment on above: Performed By: #### 1 9598023 #### [facility] Laboratory [address] [place] [address] Clarity (U) CLEAR Normal Clear [facility] Comment on above: Performed By: #### 1 [id number] #### [facility] [address] [place] [address] Color (U) YELLOW Normal Yellow [facility] Comment on above: Performed By: #### 1 0374663 #### [facility] [address] [place] [address] Crystals LM Ql (Urine sed) Present Normal [facility] Comment on above: Performed By: #### 1 [id number] #### [facility] [address] [place] [address] Epithelial cells.squamous LM.HPF (Urine sed) [#/Area] 0-2 Normal 0-2 [facility] Comment on above: Performed By: #### 1 5160943 #### [facility] [address] [place] [address] Glucose Test strip (U) [Mass/Vol] Negative Normal Negative [facility] Comment on above: Performed By: #### 1 1106331 #### [facility] [address] [place] [address] Hemoglobin Ql (U) Negative Normal Negative [facility] Comment on above: Performed By: #### 1 [id number] #### [facility] [address] [place] [address] Ketones (U) [Mass/Vol] Negative Normal Negative [facility] Comment on above: Performed By: #### 1 2671173 #### [facility] [address] [place] [address] Melvern.plasma/Lithiu m.RBC (Bld) [Mass ratio] 0-3 Normal 0-3 [facility] Comment on above: Performed By: #### 1 4182513 #### [facility] [address] [place] [address] Nitrite Ql (U) Negative Normal Negative [facility] Comment on above: Performed By: #### 1 4405414 #### [facility] [address] [place] [address] pH (U) 6.0 [pH] Invalid Interpretation Code 5.0-9.0 [facility] Comment on above: Performed By: #### 1 [id number] #### [facility] [address] [place] [address] Protein (U) [Mass/Vol] Negative Normal Negative [facility] Comment on above: Performed By: #### 1 8645068 #### [facility] [address] [place] [address] Specific gravity (U) [Rel density] 1.010 Invalid Interpretation Code 1.005-1.030 [facility] Comment on above: Performed By: #### 1 1087380 #### [facility] Laboratory [address] [place] [address] Type of Urine collection method Clean Catch Normal [facility] Comment on above: Performed By: #### 1 7535960 #### [facility] [address] [place] [address] Urobilinogen Qn (U) 0.2 {Lucila'U}/dL Normal 0.0-1.0 [facility] Comment on above: Performed By: #### 1 7415859 #### [facility] [address] [place] [address] WBC Auto Ql (U) Negative Normal Negative [facility] Comment on above: Performed By: #### 1 5130916 #### [facility] [address] [place] [address] WBC LM.HPF (Urine sed) [#/Area] 0-5 Normal 0-5 [facility] Comment on above: Performed By: #### 1 3789211 #### [facility] [address] [place] [address] eGFRon 06-09-2023 GFR/1.73 sq M.predicted among non-blacks MDRD (S/P/Bld) [Vol rate/Area] 121 mL/min/1.73 m2 Normal >=59 [facility] Comment on above: Order Comment: Order added by Discern Expert. Result Comment: Legal Mediator gurpreet kidney disease could be indicated at eGFR's of less than 60 mL/min/1.73m2. Kidney failure is indicated at less than 15 mL/min/1.73m2. Performed By: #### 2 573731, 9148254, 0643135, 0389115, 6044246, 07395599 ####[facility] [address] [place] [address] Vit Aon 03-24-2023 Retinol [Mass/Vol] 42.9 microgram/dL Invalid Interpretation Code 18.9-57.3 [facility] Comment on above: Result Comment: Refe rence intervals for vitamin A determined from [facility] internal studies. Individuals with vitamin A less than 20 ug/dL are considered vitamin A deficient and those with serum concentrations less than 10 ug/dL are considered severely deficient. This test was developed and its performance characteristics determined by [employer]. It has not been cleared or approved by the Food and Drug Administration. Performed at: [address] [id number] MD Shorty Rodríguez Performed By: #### 2 373401, 30028947, 5821210, 9998139, 84518259, 92633443, 618715631, 4402076, 3505212, 70143363, 8262615, 0923814, 196786431, 58742320, 3584350, 6120523, 8955059, 5150749 ####[facility] [address] [place] [address] Vit B1on 03-24-2023 Thiamine (Bld) [Moles/Vol] 171.7 nmol/L Invalid Interpretation Code 66.5-200.0 [facility] Comment on above: Result Comment: This test was developed and its performance characteristics determined by [employer]. It has not been cleared or approved by the Food and Drug Administration. Performed at: [address] [id number] MD Shorty Rodríguez Performed By: #### 2 224868, 93594863, 1420960, 3696134, 70899886, 13433476, 454562770, 8962019, 2971347, 08745655, 2325407, 5006534, 531830363, 56067506, 1668510, 5524866, 8080889, 5369056 ####[facility] [address] [place] [address] Zinc Lvlon 03-24-2023 Zinc [Mass/Vol] 85 microgram/dL Invalid Interpretation Code 44115 [facility] Comment on above: Result Comment: This test was developed and its performance characteristics determined by [facility]. It has not been cleared or approved by the Food and Drug Administration. Detection Limit = 5 Performed at: [address] [id number] MD Shorty Rodríguez Performed By: #### 2 903846, 18404932, 6789491, 4089974, 57650424, 63833732, 056627120, 1260549, 0622198, 90080234, 4673484, 9427650, 181396416, 39194119, 2816543, 3604491, 6516963, 0873201 ####[facility] [address] [place] [address] PTH Intacton 03-20-2023 Parathyrin.intact [Mass/Vol] 17 pg/mL Invalid Interpretation Code 15 [facility] Comment on above: Result Comment: Perf ormed at: [address] [id number] PhD Cordelia Madera Performed By: #### 1 3872786 ####[facility] [address] [place] [address] Auto Diffon 03-19-2023 Basophils/100 WBC (Bld) 1.1 % Normal 0.0-2.0 [facility] Comment on above: Order Comment: Order Added by Discern Expert. Performed By: #### 2 357684, 35752581, 3615591, 1620541, 50604423, 51687904, 136014771, 1909760, 5143301, 91636759, 9272041, 2670071, 467050708, 41541400, 9513163, 9948178, 0003231, 6132759 ####[facility] [address] [place] [address] Basophils/Leukocytes Auto (Bld) [Pure # fraction] 0.1 E9/L Normal 0.0-0.2 [facility] Comment on above: Order Comment: Order Added by Discern Expert. Performed By: #### 2 263556, 84939107, 1326484, 0945880, 69667469, 50993747, 727621895, 7062921, 1705779, 02344750, 8247620, 7505954, 768633713, 39101838, 1372320, 8422037, 7969918, 2242560 ####[address] [place] [address] Eosinophils/100 WBC (Bld) 4.1 % Normal 0.0-8.0 [facility] Comment on above: Order Comment: Order Added by Discern Expert. Performed By: #### 2 670261, 08067337, 2745358, 2067575, 07849753, 08201358, 028179533, 4680772, 7865860, 59920709, 9053320, 9694661, 838592398, 81130742, 2321423, 0920090, 0889092, 9025190 ####[address] [address] Eosinophils/Leukocyte s Auto (Bld) [Pure # fraction] 0.4 E9/L Normal 0.0-0.5 [facility] Comment on above: Order Comment: Order Added by Discern Expert. Performed By: #### 2 024378, 02607633, 6369858, 7038680, 42413861, 89033576, 136987629, 6469789, 7487802, 38554431, 5526381, 5373380, 760289548, 30126976, 2665229, 4773627, 0936677, 8213071 ####[facility] [address] [place] [address] Lymphocytes/100 WBC (Bld) 20.5 % Normal 14.0-50.0 [facility] Comment on above: Order Comment: Order Added by Discern Expert. Performed By: #### 2 769792, 70190982, 2594195, 2086597, 96593907, 71270227, 690077765, 2099984, 0373084, 73613947, 2044059, 0768197, 027739919, 97432250, 6918489, 0325411, 7839373, 0557506 ####[facility] [address] [place] [address] Lymphocytes/Leukocyte s Auto (Bld) [Pure # fraction] 2.1 E9/L Normal 1.0-4.0 [facility] Comment on above: Order Comment: Order Added by Discern Expert. Performed By: #### 2 687576, 55269493, 2429583, 9431378, 58470885, 53384676, 471649733, 7350692, 0579563, 40239886, 9504656, 4257451, 805588926, 04431422, 4856568, 3746058, 7592653, 4114164 ####[facility] [address] [place] [address] Monocytes/100 WBC (Bld) 7.6 % Normal 4.0-14.0 [facility] Comment on above: Order Comment: Order Added by Discern Expert. Performed By: #### 2 897621, 26368418, 2845803, 4241299, 05974498, 89396238, 155791359, 3910474, 2837199, 75551821, 8271795, 5273507, 219525920, 67941531, 8171069, 5023396, 2168648, 5364316 ####[facility] [address] [place] [address] Monocytes/Leukocytes Auto (Bld) [Pure # fraction] 0.8 E9/L Normal 0.2-1.0 [facility] Comment on above: Order Comment: Order Added by Discern Expert. Performed By: #### 2 084972, 63752774, 2060303, 8177764, 02404779, 56495293, 823061772, 2100155, 8379662, 77069402, 4043818, 6208838, 345018371, 34978992, 7610109, 5209840, 9600086, 3029672 ####[facility] [address] [place] [address] Neutrophils/100 WBC (Bld) 66.7 % Normal 36.0-75.0 [facility] Comment on above: Order Comment: Order Added by Discern Expert. Performed By: #### 2 114687, 41229469, 3313229, 7453057, 30140219, 69313250, 062144078, 4643649, 1783896, 39161056, 9592611, 2967703, 605699372, 62892509, 4445601, 4147719, 9256096, 1329803 ####[facility] [address] [place] [address] Neutrophils/Leukocyte s Auto (Bld) [Pure # fraction] 6.8 E9/L Normal 2.0-7.5 [facility] Comment on above: Order Comment: Order Added by Discern Expert. Performed By: #### 2 913066, 90157202, 3147913, 3936931, 98449401, 89174541, 238625112, 9868952, 8037157, 04171577, 3349082, 1233970, 956991584, 93227438, 4951749, 5785067, 1233420, 2382142 ####[address] [place] [address] CBC w/ Auto Diffon 3 Erythrocyte distribution width (RBC) [Ratio] 16.0 % High 10.9-14.2 [facility] Comment on above: Performed By: #### 2 675476, 59455671, 3679703, 4539699, 61311098, 96775625, 951842730, 4693653, 5423438, 88949769, 1332247, 2117372, 582370947, 30223485, 8814985, 9517882, 8495709, 3260600 ####[facility] [address] [place] [address] Hematocrit (Bld) [Volume fraction] 37.1 % Normal 34.0-46.0 [facility] Comment on above: Performed By: #### 2 436415, 04334275, 9986868, 2354549, 98381528, 93275467, 772179314, 6824419, 2330051, 90122578, 8206055, 8667487, 682201987, 96087937, 3587542, 3867152, 1007345, 3969497 ####[address] [place] [address] Hemoglobin (Bld) [Mass/Vol] 12.6 g/dL Normal 12.0-16.0 [facility] Comment on above: Performed By: #### 2 930650, 66435363, 9376136, 4252662, 32855028, 52194402, 387374373, 7410273, 4403459, 20204551, 5666482, 2593892, 173903623, 30449586, 1539545, 9922706, 8882956, 7162865 ####[address] [place] [address] MCH (RBC) [Entitic mass] 31.2 pg Normal 27.0-34.0 [facility] Comment on above: Performed By: #### 2 701920, 88860030, 6837571, 5639594, 58873384, 24004531, 751815351, 7562568, 1873816, 28274972, 3588314, 4725184, 141029434, 49753653, 5042404, 6294184, 6376343, 4632470 ####[address] [address] MCHC (RBC) [Mass/Vol] 33.9 g/dL Normal 31.4-36.0 [facility] Comment on above: Performed By: #### 2 424904, 41797998, 5653979, 5156393, 71408419, 00138082, 363693365, 6494837, 3496173, 56649898, 7276365, 0914656, 650468781, 40590986, 8846611, 5946832, 1791105, 3847883 ####[facility] [address] [place] [address] MCV (RBC) [Entitic vol] 92.0 fL Normal 80.0-100.0 [facility] Comment on above: Performed By: #### 2 272905, 65262420, 9566699, 1619401, 04899073, 60321016, 613199810, 6524287, 1276162, 79428670, 7610448, 5995132, 137779306, 79307937, 2295797, 2922825, 7866686, 6539680 ####[facility] [address] [place] [address] Platelet mean volume (Bld) [Entitic vol] 9.8 fL Normal 6.4-10.8 [facility] Comment on above: Performed By: #### 2 393541, 75301365, 9818702, 6052185, 96284084, 41991742, 658631947, 6906594, 1076823, 90430637, 0970512, 9131368, 025962890, 05055488, 0044570, 8806966, 3325843, 0609020 ####[address] [place] [address] Platelets (Bld) [#/Vol] 369.0 E9/L Normal 150.0-500.0 [facility] Comment on above: Performed By: #### 2 131645, 68256491, 3313651, 6253618, 39073445, 86806126, 499677258, 6895622, 6364662, 63507227, 5586808, 9580840, 855387834, 86968535, 3640588, 4602746, 1985897, 4248453 ####[facility] [address] [place] [address] RBC (Bld) [#/Vol] 4.0 E12/L Low 4.3-5.9 [facility] Comment on above: Performed By: #### 2 940415, 96625952, 3082782, 1633420, 20382783, 75251081, 423838611, 5880449, 1454790, 89183088, 4842508, 8588315, 552383877, 15088696, 7978895, 0913654, 6931870, 3863347 ####[facility] [address] [place] [address] WBC corrected for nucl RBC Auto (Bld) [#/Vol] 10.1 E9/L Normal 4.0-11.0 [facility] Comment on above: Performed By: #### 2 818458, 05260329, 4076495, 0798199, 55192714, 51408056, 219064621, 0489567, 1613768, 53534138, 0970089, 3840985, 922848220, 36205970, 6227338, 3763291, 2408237, 4871449 ####[facility] [address] [place] [address] CHEMISTRYOrdered By: SYSTEM SYSTEM on 03-19-2023 25-hydroxyvitamin [...] 9 mmol/L Normal 6 - 16 mEq/L F [facility] Remisol AST [Catalytic activity/Vol] 20 [iU]/d Normal [...] (S/P/Bld) [Vol rate/Area] 116 mL/min/1.73 m2 Normal >=59mL/min/1 .73 m2 [facility] Chem S Globulin (S) [Mass/Vol] [...] 12 mg/dL Normal 5 - 21 mg/dL [facility] Remisol Urea nitrogen/Creatinine [Mass ratio] 17 mg/mg Normal 10 - 20 [facility] Remisol CHEMISTRYOrdered By: Torres Ulloa on 03-19-2023 HbA1c (Bld) [Mass fraction] 5.8 % Normal <=5.9% [facility] ChemAutoSS CMPon 03-19-2023 Albumin [Mass/Vol] 4.0 g/dL Normal 3.3-5.0 [facility] Comment on above: Performed By: #### 2 644937, 98968044, 8043217, 9931874, 66251510, 57392951, 394720373, 8122371, 1755983, 29303029, 6672358, 3472615, 103251021, 87582609, 9028967, 5842632, 4804430, 9911979 ####[facility] [address] [place] [address] Albumin/Globulin (S) [Mass conc ratio] 1.2 Normal 1.1-2.2 [facility] Comment on above: Performed By: #### 2 561966, 13734858, 0616957, 8660921, 14220125, 49295467, 102867200, 4314945, 7957022, 93128408, 1996622, 9942926, 775945813, 78631478, 2403009, 6101460, 3978788, 6555889 ####[facility] [address] [place] [address] ALP [Catalytic activity/Vol] 61 Int._Unit/L Normal 21-98 [facility] Comment on above: Performed By: #### 2 995638, 45012244, 1702266, 2343458, 99624907, 32828579, 046286168, 6747804, 1758739, 52826594, 2437192, 6205419, 527177198, 32436805, 4398573, 4502796, 5155590, 0761735 ####[address] [place] [address] ALT No additional P-5'-P [Catalytic activity/Vol] 17 Int._Unit/L Normal 6-46 [facility] Comment on above: Performed By: #### 2 295714, 80858493, 0045875, 3798952, 84780995, 69081332, 524433043, 6931350, 9421422, 03453872, 4704239, 5527401, 216596716, 52836752, 6957130, 3573157, 7837458, 5067833 ####[address] [place] [address] Anion gap [Moles/Vol] 9 mmol/L Normal 6-16 [facility] Comment on above: Performed By: #### 2 459647, 77783413, 2151632, 6878739, 42028419, 83587651, 904665803, 1048376, 9972005, 36076499, 2531853, 3854220, 849001454, 99276529, 2269571, 1915793, 7854963, 1251381 ####[facility] [address] [place] [address] AST [Catalytic activity/Vol] 20 Int._Unit/L Normal 5-43 [facility] Comment on above: Performed By: #### 2 018798, 24950084, 2000101, 9858686, 35421198, 55724667, 454113398, 3785869, 8480262, 83868532, 9081142, 2535246, 076081652, 36851918, 5882101, 8871202, 3931040, 0018509 ####[facility] [address] [place] [address] Bilirubin [Mass/Vol] 0.4 mg/dL Normal 0.0-1.1 [facility] Comment on above: Performed By: #### 2 191284, 71908892, 4199463, 2011382, 58381674, 88563910, 226435199, 9806570, 1501418, 94698652, 8577046, 9689362, 468697361, 06921265, 7486669, 7798318, 0780169, 5101768 ####[address] [place] [address] Calcium [Mass/Vol] 9.2 mg/dL Normal 8.9-11.1 [facility] Comment on above: Performed By: #### 2 898069, 88236756, 5249776, 1411023, 84308766, 74342029, 619239928, 5063780, 0797167, 56974162, 4100503, 6003220, 472714399, 34104619, 7664382, 1145409, 1068650, 6713480 ####[facility] [address] [place] [address] Chloride [Moles/Vol] 113 mmol/L High 101-111 [facility] Comment on above: Performed By: #### 2 996993, 90433288, 3335218, 0766514, 89199283, 08450232, 795846335, 1250611, 2343305, 94130204, 6914358, 8799565, 922766426, 29525008, 2003650, 3831910, 0014487, 0858185 ####[facility] [address] [place] [address] CO2 [Moles/Vol] 22 mmol/L Normal 21-31 [facility] Comment on above: Performed By: #### 2 063607, 78277176, 2715542, 9004977, 88569098, 05923048, 122743532, 4034532, 7105723, 36573632, 6933252, 6254693, 959459142, 89469250, 3016976, 2152567, 2278987, 2562146 ####[facility] [address] [place] [address] Creatinine [Mass/Vol] 0.7 mg/dL Normal 0.5-1.3 [facility] Comment on above: Performed By: #### 2 567330, 02512137, 6417740, 9867059, 01335780, 71681389, 626771892, 1796891, 9572474, 07173313, 0445924, 2059528, 217573950, 56782710, 3958816, 7867327, 1782279, 6362979 ####[facility] [address] [place] [address] Globulin (S) [Mass/Vol] 3.2 g/dL Normal 1.4-4.0 [facility] Comment on above: Performed By: #### 2 180658, 47585439, 1282292, 8816709, 57621486, 22135534, 402384535, 6517316, 3997030, 13401853, 2310960, 9469143, 626260024, 17859817, 8601586, 6608315, 9604445, 5601525 ####[address] [place] [address] Glucose [Mass/Vol] 103 mg/dL Normal 55-199 [facility] Comment on above: Result Comment: If t his glucose result represents a fasting glucose, interpretation should refer to the following reference range: 55-99 mg/dL Performed By: #### 2 800677, 91655754, 4579115, 6715198, 00337994, 08870553, 587322741, 7184925, 2251567, 73111906, 9428394, 8973087, 912207153, 42952249, 4340560, 9440121, 6916564, 5237076 ####[facility] [address] [place] [address] Potassium [Moles/Vol] 3.8 mmol/L Normal 3.5-5.3 [facility] Comment on above: Performed By: #### 2 230863, 61223253, 0555830, 7591430, 33173733, 30280219, 992668937, 4405619, 1397924, 16756961, 7107859, 4072435, 898429628, 22169745, 5246913, 4535208, 6791692, 2106582 ####[facility] [address] [place] [address] Protein [Mass/Vol] 7.2 g/dL Normal 6.0-7.8 [facility] Comment on above: Performed By: #### 2 319658, 12281644, 8887475, 1246390, 71661990, 00631096, 956166920, 3713516, 6527067, 69019269, 2855572, 0935872, 070109808, 08083879, 0175551, 4534958, 0670668, 0003743 ####[facility] [address] [place] [address] Sodium [Moles/Vol] 140 mmol/L Normal 135-145 [facility] Comment on above: Performed By: #### 2 350378, 22599330, 0965185, 6501326, 33003662, 74947371, 306389843, 8469800, 3485138, 12304333, 9336043, 6391461, 647664067, 00302408, 4989140, 8958087, 1777376, 3463131 ####[facility] [address] [place] [address] Urea nitrogen [Mass/Vol] 12 mg/dL Normal 5-21 [facility] Comment on above: Performed By: #### 2 511472, 70126283, 4263195, 9018821, 93760846, 44026388, 641677347, 7084145, 7469660, 80677105, 1967353, 5530469, 452915703, 66276764, 4418389, 8133107, 2549046, 0249532 ####[facility] [address] [place] [address] Urea nitrogen/Creatinine [Mass ratio] 17 No Units Normal 10-20 [facility] Comment on above: Performed By: #### 2 241172, 59013054, 7301757, 7181490, 71104783, 18418310, 129651313, 3943199, 9780660, 86504439, 0614624, 2857307, 345374089, 22377037, 2356273, 0418772, 5588085, 7479246 ####[facility] [address] [place] [address] Consent for Treatmenton 07-0 Consent for Treatment [id number]: 127 Normal [facility] Ferritinon - Ferritin [Mass/Vol] 6 ng/mL Low 11-307 [facility] Comment on above: Result Comment: NORM ALS MEN <30 YRS 16-132 ng/mL MEN >30 YRS 8-338 ng/mL WOMEN (PREMEN) 6-104 ng/mL WOMEN (POSTMEN) 12-210 ng/mL Performed By: #### 2 675314, 51724459, 1910483, 9686024, 85486216, 95112374, 283516758, 9316949, 9567907, 75527251, 5895233, 7886239, 125475107, 98740604, 8126624, 2755765, 5117266, 1584680 ####[facility] [address] [place] [address] Folateon 03-19-2023 Folate [Mass/Vol] 15.6 ng/mL Normal >=6.7 [facility] Comment on above: Performed By: #### 2 299130, 62982834, 3509956, 2652016, 06726173, 15750249, 276571094, 7581688, 6500682, 10331372, 5225535, 1853098, 971148544, 01907403, 4086682, 9313238, 9720934, 4951079 ####[address] [address] Free T4on 03-19-2023 Free T4 [Mass/Vol] 0.88 ng/dL Normal 0.58-1.64 [facility] Comment on above: Performed By: #### 2 623536, 19779054, 8166762, 5059100, 76749752, 70575260, 073439071, 2234184, 6550990, 79902666, 3139999, 6502465, 248666745, 51559047, 3364706, 6294579, 4651670, 1889269 ####[address] [address] HEMATOLOGYOrdered By: SYSTEM SYSTEM on 03-19-2023 Basophils/100 WBC (Bld) 1.1 % Normal 0.0 - 2.0 % [facility] HemeAutoSS Basophils/Leukocytes Auto (Bld) [Pure # fraction] 0.1 E9/L Normal 0.0 - 0.2 E9/L [facility]eAuto[facility] Eosinophils/100 WBC (Bld) 4.1 % Normal 0.0 - 8.0 % [facility]eAutoSS Eosinophils/Leukocyte s Auto (Bld) [Pure # fraction] 0.4 E9/L Normal 0.0 - 0.5 E9/L [facility]eAuto[facility] Lymphocytes/100 WBC (Bld) 20.5 % Normal 14.0 - 50.0 % [facility]eAutoSS Lymphocytes/Leukocyte s Auto (Bld) [Pure # fraction] 2.1 E9/L Normal 1.0 - 4.0 E9/L [facility]Auto[facility] Monocytes/100 WBC (Bld) 7.6 % Normal 4.0 - 14.0 % [facility]eAuto[facility] Monocytes/Leukocytes Auto (Bld) [Pure # fraction] 0.8 E9/L Normal 0.2 - 1.0 E9/L [facility] Neutrophils/100 WBC (Bld) 66.7 % Normal 36.0 - 75.0 % [facility]eAuto[facility] Neutrophils/Leukocyte s Auto (Bld) [Pure # fraction] 6.8 E9/L [...] Normal 4.0 - 11.0 E9/L [facility] [id number] 03-19-2023 HbA1c (Bld) [Mass fraction] 5.8 % Normal <=5.9 [facility] Comment on above: Performed By: #### 2 200975, 15318723, 4976690, 2562166, 71937092, 84476341, 682552325, 7877205, 5641399, 81512303, 7996008, 7514880, 472432648, 04917346, 0340594, 2600089, 0103402, 8474419 ####[facility] [address] [place] [address] Ironon 03-19-2023 Iron [Mass/Vol] 69 microgram/dL Normal 35-153 [facility] Comment on above: Performed By: #### 2 323566, 03033447, 4131928, 8488096, 50839582, 51518887, 938961916, 7156289, 2396157, 93341819, 8789528, 9186690, 640320631, 02693257, 7107446, 0070915, 1817418, 9286378 ####[facility] [address] [place] [address] Lipid Panelon 03-19-2023 Cholesterol [Mass/Vol] 167 mg/dL Normal 120-200 [facility] Comment on above: Performed By: #### 2 735840, 75841284, 6295800, 9880879, 37902404, 68076012, 393382478, 4146154, 9133674, 65951046, 1150525, 3235608, 833314835, 04860374, 4673997, 3527462, 0250402, 3939690 ####[facility] [address] [place] [address] Cholesterol in HDL [Mass/Vol] 72 mg/dL Invalid Interpretation Code [facility] Comment on above: Result Comment: HDL > or equal to 60 mg/dL: Low cardiovascular risk HDL < 40 mg/dL : High cardiovascular risk Performed By: #### 2 886890, 80957427, 3028974, 1303853, 89727496, 07218511, 002029558, 6273569, 9003613, 35906066, 7412883, 5773875, 964732048, 59208606, 7327311, 2838501, 1622621, 5273887 ####[facility] [address] [place] [address] Cholesterol in LDL [Mass/Vol] 72 mg/dL Normal <=129 [facility] Comment on above: Performed By: #### 2 982996, 59725865, 5449099, 9040781, 77711986, 42060834, 780148775, 0948562, 1713255, 82773467, 9231524, 8378553, 057518468, 60026064, 2718348, 8940595, 9224054, 8156480 ####[address] [place] [address] Cholesterol in VLDL [Mass/Vol] 14 mg/dL Normal 7-40 [facility] Comment on above: Performed By: #### 2 425796, 48581606, 6234248, 6603205, 75144949, 80597286, 351436702, 0148142, 6401479, 14366025, 0815501, 9353034, 529949916, 20863479, 5995998, 4166971, 6641239, 9936628 ####[facility] [address] [place] [address] Triglyceride [Mass/Vol] 69 mg/dL Normal <=149 [facility] Comment on above: Performed By: #### 2 496418, 92677666, 8683241, 8841062, 06331145, 46016097, 834861181, 0042725, 5645737, 75624159, 7535407, 9393577, 089942209, 33537472, 3243521, 9291701, 7161096, 3949419 ####[facility] [address] [place] [address] Magnesiumon 03-19-2023 Magnesium [Mass/Vol] 2.0 mg/dL Normal 1.3-2.4 [facility] Comment on above: Performed By: #### 2 716672, 54936017, 9709985, 1225156, 07755362, 63708241, 830780453, 2715543, 6195918, 72957291, 1093340, 5167879, 387820391, 47807705, 6291157, 6200497, 4074700, 6514212 ####[facility] [address] [place] [address] Physician Orderon 03-19-2023 Physician Order [id number]#[id number] :127 Normal [facility] TIBC Calculatedon 03-19-2023 Iron binding capacity [Mass/Vol] 423 microgram/dL High 250-400 [facility] Comment on above: Performed By: #### 2 245189, 55593993, 1758992, 2206527, 02418298, 73527767, 178918623, 3348420, 4798389, 99749599, 4553426, 7297415, 406803476, 46341504, 8105706, 2213441, 6048596, 2846650 ####[facility] [address] [place] [address] Transferrin [Mass/Vol] 302 mg/dL Normal 200-370 [facility] Comment on above: Performed By: #### 2 072992, 79694684, 2929902, 8175878, 66412739, 54427513, 400047515, 3145196, 3395810, 39398475, 8250727, 1593407, 007688915, 89202251, 0493694, 9961579, 4705427, 1654983 ####[facility] [address] [place] [address] TSHon 03-19-2023 TSH Qn 0.61 m[IU]/L Normal 0.34-5.60 [facility] Comment on above: Performed By: #### 2 363418, 76036973, 3752184, 3050174, 65408645, 00702268, 641600622, 6753849, 6285147, 83929145, 4714821, 9410047, 797943427, 50046061, 5314339, 1987992, 4047549, 8244524 ####[facility] [address] [place] [address] Vit B12on 03-19-2023 Cobalamin (Vitamin B12) [Mass/Vol] 357 pg/mL Normal 50-1500 [facility] Comment on above: Performed By: #### 2 811965, 26905447, 1311902, 5746129, 96170581, 25877368, 570425662, 9273313, 4215219, 04186738, 2806538, 4377139, 358498455, 19622810, 9916091, 7453050, 2241134, 5731236 ####[facility] [address] [place] [address] Vitamin D 25 Hydroxyon 03-19 25-hydroxyvitamin D3 [Mass/Vol] 43.1 ng/mL Normal 30.0-100.0 [facility] Comment on above: Result Comment: Vit alberto D deficiency has been defined as a level of serum 25-OH vitamin D less than 20 ng/mL (1,2) by the [place] [employer] and an Endocrine Society practice guideline. The Endocrine Society further defined vitamin D insufficiency as a level between 21 and 29 ng/mL (2). 1. IOM ([place] [employer]). 2010. Dietary reference intakes for calcium and D. [place]: The National Academies Press. 2. Willard MF, Luisa NC, Nestor KAUR, et al. Evaluation, treatment, and prevention of vitamin D deficiency: an Endocrine Society clinical practice guideline. JCEM. 2010; 96 (7):1911-30. Performed By: #### 2 273519, 25008606, 7094591, 4093984, 03604428, 52570799, 771906445, 3746173, 2268647, 99229096, 9502462, 0079954, 880358191, 71239201, 1626685, 5314004, 0993340, 6618336 ####[facility] [address] [place] [address] eGFRon 03-19-2023 GFR/1.73 sq M.predicted among non-blacks MDRD (S/P/Bld) [Vol rate/Area] 116 mL/min/1.73 m2 Normal >=59 [facility] Comment on above: Order Comment: Order added by Discern Expert. Result Comment: Legal Mediator gurpreet kidney disease could be indicated at eGFR's of less than 60 mL/min/1.73m2. Kidney failure is indicated at less than 15 mL/min/1.73m2. Performed By: #### 2 769284, 39480292, 9778489, 1438466, 49313854, 36770717, 099663706, 1943741, 8203920, 50852969, 8342456, 2396426, 216435394, 63299548, 6464157, 0041361, 3849866, 3907670 ####[facility] [address] [place] [address] CHEMISTRYOrdered By: SYSTEM SYSTEM on 01-15-2023 Albumin [...] 12 mmol/L Normal 6 - 16 mEq/L [facility] Rem[facility] AST [Catalytic activity/Vol] 21 [iU]/d Normal [...] (S/P/Bld) [Vol rate/Area] 99 mL/min/1.73 m2 Normal >=59mL/min/1 .73 m2 [facility] Chem S Globulin (S) [Mass/Vol] 3.0 g/dL Normal 1.4 - 4.0 gm/dL [facility] Remisol Glucose [Mass/Vol] 89 mg/dL Normal 55 - 199 mg/dL [facility] Remisol Potassium [Moles/Vol] 3.8 mmol/L Normal 3.5 - 5.3 mmol/L [facility] Protein [Mass/Vol] 6.7 g/dL Normal 6.0 - 7.8 gm/dL [facility] Sodium [Moles/Vol] 137 mmol/L Normal 135 - 145 mmol/L [facility] Remisol Troponin I.cardiac [Mass/Vol] pg/mL Low 10.10 - 27.10 pg/mL [facility] Urea nitrogen [Mass/Vol] 12 mg/dL Normal 5 - 21 mg/dL [facility] Urea nitrogen/Creatinine [Mass ratio] 15 mg/mg Normal 10 - 20 [facility] HEMATOLOGYOrdered By: SYSTEM SYSTEM on 01-15-2023 Basophils/100 WBC (Bld) 0.9 % Normal 0.0 - 2.0 % [facility]eAutoSS Basophils/Leukocytes Auto (Bld) [Pure # fraction] 0.1 E9/L Normal 0.0 - 0.2 E9/L [facility] Eosinophils/100 WBC (Bld) 1.9 % Normal 0.0 - 8.0 % [facility]Auto[facility] Eosinophils/Leukocyte s Auto (Bld) [Pure # fraction] 0.2 E9/L Normal 0.0 - 0.5 E9/L [facility] Lymphocytes/100 WBC (Bld) 25.5 % Normal 14.0 - 50.0 % [facility]eAuto[facility] Lymphocytes/Leukocyte s Auto (Bld) [Pure # fraction] 2.2 E9/L Normal 1.0 - 4.0 E9/L [facility] Monocytes/100 WBC (Bld) 7.2 % Normal 4.0 - 14.0 % [facility]eAutoSS Monocytes/Leukocytes Auto (Bld) [Pure # fraction] 0.6 E9/L Normal 0.2 - 1.0 E9/L [facility] Neutrophils/100 WBC (Bld) 64.5 % Normal 36.0 - 75.0 % [facility]Auto[facility] Neutrophils/Leukocyte s Auto (Bld) [Pure # fraction] 5.6 E9/L [...] 95.0 fL Normal 80.0 - 100.0 fL [facility] Platelet mean volume (Bld) [Entitic vol] 9.4 fL Normal 6.4 - 10.8 fL [facility] Platelets (Bld) [#/Vol] 325.0 E9/L Normal 150.0 - 500.0 E9/L [facility] RBC (Bld) [#/Vol] 3.7 E12/L Low 4.3 - 5.9 E12/L [facility] WBC corrected for nucl RBC Auto (Bld) [#/Vol] 8.8 E9/L Normal 4.0 - 11.0 E9/L [facility] SEROLOGYOrdered By: Yoli Robert on 01-15-2023 Beta hCG Ql Negative (01/15/23 11:31 AM) Normal [facility] Man Sero URINALYSISOrdered By: Destin santana on 01-15-2023 Bacteria LM Ql (Urine sed) 1+ /HPF Invalid Interpretation Code Trace/HPF [facility] UA Auto SS Bilirubin Ql (U) Negative (01/15/23 12:51 PM) Normal Negative [facility] UA Auto SS Clarity (U) SL CLOUDY Invalid Interpretation Code [facility]A Auto SS Color (U) Yellow (01/15/23 12:51 PM) Normal Yellow [facility]A Auto SS Crystals LM Ql (Urine [...] PM) Normal Negative [facility] UA Auto SS Melvern.plasma/Lithiu m.RBC (Bld) [Mass ratio] 0-3 /HPF Normal 0-3/HPF [...] Desc Clean Catch (01/15/23 12:51 PM) Normal [facility] UA Auto SS Urobilinogen Qn (U) 0.5427704 {Lucila'U}/dL Normal 0.0 - 1.0 EU/dL [facility] UA Auto SS WBC Auto Ql (U) 1+ *ABN* (01/15/23 12:51 PM) Invalid Interpretation Code Negative [facility] UA Auto SS WBC LM.HPF (Urine sed) [#/Area] 0-5 /HPF Normal 0-5/HPF [facility] UA Auto SS BLOOD BANKOrdered By: Myrna Contreras on 12-05-2022 ABO/Rh Interp Negative Invalid Interpretation Code [facility] BB Subsection ABSC Gel Interp Negative (12/05/22 7:24 AM) Normal [facility] BB Subsection URINALYSISOrdered By: Kimberli Martin on [...] AM) Normal Negative [facility] UA Auto SS Melvern.plasma/Lithiu m.RBC (Bld) [Mass ratio] 0-3 /HPF Normal 0-3/HPF [facility] UA Auto SS Nitrite Ql (U) Negative (12/05/22 10:05 AM) Normal Negative [facility] UA Auto SS pH (U) 6.5 *NA* (12/05/22 10:05 AM) Invalid Interpretation Code 5.0 - 9.0 [facility] UA Auto SS Protein (U) [Mass/Vol] Negative (12/05/22 10:05 AM) Normal Negative [facility] UA Auto SS Specific gravity (U) [Rel density] 1.015 *NA* (12/05/22 10:05 AM) Invalid Interpretation Code 1.005 - 1.030 [facility] UA Auto SS UA Spec Desc Catheter (12/05/22 10:05 AM) Normal [facility] UA Auto SS Urobilinogen Qn (U) 1.0051117 {Lucila'U}/dL Normal 0.0 - 1.0 EU/dL [facility]A Auto SS WBC Auto Ql (U) Negative (12/05/22 10:05 AM) Normal Negative [facility] UA Auto SS WBC LM.HPF (Urine sed) [#/Area] 0-5 /HPF Normal 0-5/HPF [facility] UA Auto SS CHEMISTRYOrdered By: SYSTEM SYSTEM on 11-21-2022 Anion gap [Moles/Vol] 13 mmol/L Normal 6 - 16 mEq/L [facility] Remisol Chloride [Moles/Vol] 109 mmol/L Normal 101 - 1 11 mmol/L [facility] CO2 [Moles/Vol] 17 mmol/L Low 21 - 31 mmol/L [facility] Remisol Creatinine [Mass/Vol] 0.6 mg/dL Normal 0.5 - 1.3 mg/dL [facility] Remisol GFR/1.73 sq M.predicted among blacks MDRD (S/P/Bld) [Vol rate/Area] mL/min/1.73 m2 Normal >=59mL/min/1 .73 m2 [facility] Chem S GFR/1.73 sq M.predicted among non-blacks MDRD (S/P/Bld) [Vol rate/Area] mL/min/1.73 m2 Normal >=59mL/min/1 .73 m2 [facility] Chem S Potassium [Moles/Vol] 3.6 mmol/L Normal [...] 270.0 E9/L Normal 150.0 - 500.0 E9/L [facility]eAutoSS RBC (Bld) [#/Vol] 4.0 E12/L Low 4.3 - 5.9 E12/L [facility]Auto[facility] WBC corrected for nucl RBC Auto (Bld) [#/Vol] 13.7 E9/L High 4.0 - 11.0 E9/L [facility] CNOVon 11-20-2022 CNOV Office Visit (NEADFV ) -------- SHAZIA CHOU ([id number]) 1990 F Date Time Provider Department 11/20/22 8:00 AM KIM, EILEEN THOMPSONADFV During your visit today, we recorded the following information about you: Pulse Blood pressure Weight Height 67/minute 137/81 85.7 kg 1.702 m Last Period 10/23/22 Eileen Manzano MD 11/20/2022 10:[address] 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 She has never seen an barrel builder. CSF protein 24, Glu 55, Pro 28, [...] due to congenital deformity, seen in the [facility] for: 1. Idiopathic [...] she agreed. She needs to follow with barrel builder every 6 months. In some patients with intracranial hypertension, there might be a concurrent transverse sinus stenosis and transverse sinus stenting may resolve the symptoms. I will do MRV. --HTN --H depression --Headache: there are a (more content not included)... Normal [facility] CBC AUTO DIFFon 10-30-2022 BASO # 0.0 103/ul Normal 0.0-0.1 [facility] Comment on above: Performed By: #### C JENNIE PATRICK LIPA #### [facility] [address] [place] [address] Dr. Manuel Sandhu Basophils/100 WBC (Bld) 0.5 % Normal 0.2-2.0 [facility] Comment on above: Performed By: #### C JENNIE PATRICK LIPA #### [facility] [address] [place] [address] Dr. Manuel Sandhu EO # 0.1 103/ul Normal 0.0-0.7 [facility] Comment on above: Performed By: #### C JENNIE PATRICK LIPA #### [facility] [address] [place] [address] Dr. Manuel Sandhu Eosinophils/100 WBC (Bld) 1.6 % Normal 0.9-7.0 [facility] Comment on above: Performed By: #### C JENNIE PATRICK LIPA #### [facility] [address] [place] [address] Dr. Manuel Sandhu Erythrocyte distribution width (RBC) [Ratio] 13.8 % Normal 11.0-15.0 [facility] Comment on above: Performed By: #### C JENNIE PATRICK LIPA #### [facility] [address] [place] [address] Dr. Manuel Sandhu Hematocrit (Bld) [Volume fraction] 38.7 % Normal 36.0-48.0 [facility] Comment on above: Performed By: #### C JENNIE PATRICK LIPA #### [facility] [address] [place] [address] Dr. Manuel Sandhu Hemoglobin (Bld) [Mass/Vol] 12.9 g/dL Normal 12.0-16.0 [facility] Comment on above: Performed By: #### C JENNIE PATRICK LIPA #### [facility] [address] [address] [address] Manuel Sandhu IG # 0.03 10e3/ul Normal 0.00-0.03 [facility] Comment on above: Performed By: #### C MP, JENNIE, LIPA #### [facility] [address] [address] [address] Manuel Sandhu IG % 0.4 % Normal 0.0-0.5 [facility] Comment on above: Performed By: #### C MP, JENNIE, LIPA #### [facility] [address] [place] [address] Dr. Manuel Sandhu LYMPH # 2.1 103/ul Normal 1.2-3.8 [facility] Comment on above: Performed By: #### C MP, JENNIE, LIPA #### [facility] [address] [place] [address] Dr. Manuel Sandhu Lymphocytes/100 WBC (Bld) 25.1 % Normal 20.5-60.0 [facility] Comment on above: Performed By: #### C MP, JENNIE, LIPA #### [facility] [address] [place] [address] Dr. Manuel Sandhu MANUAL DIFF REQ NO Normal [facility] Comment on above: Performed By: #### C MP, JENNIE, LIPA #### [facility] [address] [place] [address] Dr. Manuel Sandhu MCH (RBC) [Entitic mass] 32.0 pg Normal 26.7-34.0 [facility] Comment on above: Performed By: #### C MP, JENNIE, LIPA #### [facility] [address] [place] [address] Dr. Manuel Sandhu MCHC (RBC) [Mass/Vol] 33.3 g/dL Normal 29.9-35.2 [facility] Comment on above: Performed By: #### C MP, JENNIE, LIPA #### [facility] [address] [place] [address] Dr. Manuel Sandhu MCV (RBC) [Entitic vol] 96.0 fL Normal 81.0-99.0 [facility] Comment on above: Performed By: #### C JENNIE PATRICK LIPA #### [facility] [address] [place] [address] Dr. Manuel Sandhu MONO # 0.5 103/ul Normal 0.3-0.8 [facility] Comment on above: Performed By: #### C JENNIE PATRICK LIPA #### [facility] [address] [place] [address] Dr. Manuel Sandhu Monocytes/100 WBC (Bld) 5.7 % Normal 1.7-12.0 [facility] [place] Comment on above: Performed By: #### C JENNIE PATRICK LIPA #### [facility] [address] [place] [address] Dr. Manuel Sandhu NEUT # 5.6 103/ul Normal 1.4-6.5 [facility] Comment on above: Performed By: #### C JENNIE PATRICK LIPA #### [facility] [address] [place] [address] Dr. Manuel Sandhu Neutrophils/100 WBC (Bld) 66.7 % Normal 43.0-75.0 [facility] Comment on above: Performed By: #### C JENNIE PATRICK LIPA #### [facility] [address] [place] [address] Dr. Manuel Sandhu Platelet mean volume (Bld) [Entitic vol] 10.9 fL Normal 9.5-13.5 The [facility] Comment on above: Performed By: #### C JENNIE PATRICK LIPA #### [facility] [address] [place] [address] Dr. Manuel Sandhu PLT 310 103/ul Normal 150-450 The [facility] Comment on above: Performed By: #### C JENNIE PATRICK LIPA #### [facility] [address] [place] [address] Dr. Manuel Sandhu RBC 4.03 106/ul Critically low 4.20-5.40 The [facility] Comment on above: Performed By: #### C JENNIE PATRICK LIPA #### [facility] [address] [place] [address] Dr. Manuel Sandhu WBC 8.4 103/ul Normal 4.0-11.0 The [facility] Comment on above: Performed By: #### C MP, JENNIE, LIPA #### [facility] [address] [place] [address] Dr. Manuel DUBON URINE PROFILEon 3 Bilirubin Ql (U) Negative Normal NEGATIVE The [facility] Comment on above: Performed By: #### U MICRO, ERUR #### [facility] [address] [place] [address] Dr. Manuel Sandhu Clarity (U) CLEAR Normal CLEAR [facility] Comment on above: Performed By: #### U MICRO, ERUR #### [facility] [address] [place] [address] Dr. Manuel Sandhu Color (U) LT. YELLOW Normal YELLOW The [facility] Comment on above: Performed By: #### U MICRO, ERUR #### [facility] [address] [place] [address] Dr. Manuel Sandhu ERUAHD A micrscopic examina tion will be performed if indicated. Normal The [facility] Comment on above: Performed By: #### U MICRO, ERUR #### [facility] [address] [place] [address] Dr. Manuel Sandhu Glucose Ql (U) Negative Normal NEGATIVE The [facility] Comment on above: Performed By: #### U MICRO, ERUR #### [facility] [address] [place] [address] Dr. Manuel Sandhu Hemoglobin Ql (U) LARGE Abnormal NEGATIVE The [facility] Comment on above: Performed By: #### U MICRO, ERUR #### [facility] [address] [place] [address] Dr. Manuel Sandhu Ketones Ql (U) Negative Normal NEGATIVE The [facility] Comment on above: Performed By: #### U MICRO, ERUR #### [facility] [address] [place] [address] Dr. Manuel Sandhu LEUKOCYTES TRACE Abnormal NEGATIVE The [facility] Comment on above: Performed By: #### U MICRO, ERUR #### [facility] [address] [place] [address] Dr. Manuel Sandhu Nitrite Ql (U) Negative Normal NEGATIVE [facility] Comment on above: Performed By: #### U MICRO, ERUR #### [facility] [address] [place] [address] Dr. Manuel Sandhu pH (U) 6.5 [pH] Normal 5-9 [facility] [place] Comment on above: Performed By: #### U MICRO, ERUR #### [facility] [address] [place] [address] Dr. Manuel Sandhu SPEC GRAVITY <=1.005 Abnormal 1.005-<=1.02 5 [facility] [place] Comment on above: Performed By: #### U MICRO, ERUR #### [facility] [address] [place] [address] Dr. Manuel Sandhu UA PROTEIN Negative Normal NEGATIVE/ TRACE [facility] [place] Comment on above: Performed By: #### U MICRO, ERUR #### [facility] [address] [place] [address] Dr. Manuel Sandhu UR MICRO IND INDICATED Normal [facility] [place] Comment on above: Performed By: #### U MICRO, ERUR #### [facility] [address] [place] [address] Dr. Manuel Sandhu Urobilinogen Qn (U) 0.2 {Lucila'U}/dL Normal 0.2 - 1. 0 [facility] [place] Comment on above: Performed By: #### U MICRO, ERUR #### [facility] [address] [place] [address] Dr. Manuel Sandhu PROF CHEM 8 (BAS METB)on Anion gap [Moles/Vol] 11.7 mmol/L Normal Th [facility] Comment on above: Performed By: #### C JENNIE PATRICK LIPA #### [facility] [address] [place] [address] Dr. Manuel Sandhu Calcium [Mass/Vol] 9.1 mg/dL Normal 8.5-10.1 [facility] Comment on above: Performed By: #### C JENNIE PATRICK, LIPA #### [facility] [address] [address] [address] Manuel Sandhu Chloride [Moles/Vol] 105 mmol/L Normal 98-107 The [facility] Comment on above: Performed By: #### C MP, JENNIE, LIPA #### [facility] [address] [address] [address] Manuel Sandhu CO2 [Moles/Vol] 26.8 mmol/L Normal 21.0-32.0 The [facility] Comment on above: Performed By: #### C MP, JENNIE, LIPA #### [facility] [address] [address] [address] Manuel Sandhu Creatinine [Mass/Vol] 0.62 mg/dL Normal 0.55-1.02 [facility] [place] Comment on above: Performed By: #### C MP, JENNIE, LIPA #### [facility] [address] [address] [address] Manuel Sandhu EGFR-AF MARSHALLESE >60 Normal >=60 The [facility] Comment on above: Performed By: #### C MP, JENNIE, LIPA #### [facility] [address] [address] [address] Manuel Sandhu EGFR-NON AF MARSHALLESE >60 Normal >=60 The [facility] Comment on above: Performed By: #### C MP, JENNIE, LIPA #### [facility] [address] [address] [address] Manuel Sandhu Glucose [Mass/Vol] 92 mg/dL Normal 74-106 [facility] Comment on above: Performed By: #### C MP, JENNIE, LIPA #### [facility] [address] [address] [address] Manuel Sandhu Potassium [Moles/Vol] 3.5 mmol/L Normal 3.5-5.1 The [facility] Comment on above: Performed By: #### C MP, JENNIE, LIPA #### [facility] [address] [address] [address] Manuel Sandhu Sodium [Moles/Vol] 140 mmol/L Normal 136-145 [facility] Comment on above: Performed By: #### C MP, JENNIE, LIPA #### [facility] [address] [address] [address] Manuel Sandhu Urea nitrogen [Mass/Vol] 8.0 mg/dL Normal 7.0-18.0 [facility] Comment on above: Performed By: #### C MP, JENNIE, LIPA #### [facility] [address] [address] [address] Manuel Sandhu Urea nitrogen/Creatinine [Mass ratio] 12.9 mg/mg Normal [facility] [place] Comment on above: Performed By: #### C MP, JENNIE, LIPA #### [facility] [address] [place] [address] Dr. Manuel Sandhu URINE MICROSCOPIC ONLYon BACTERIA NONE SEEN Normal NONE SEEN [facility] [place] Comment on above: Performed By: #### U MICRO, ERUR #### [facility] [address] [place] [address] Dr. Manuel Sandhu Bacteria identified Cx Nom (U) NOT INDICATED Normal [facility] [place] Comment on above: Performed By: #### U MICRO, ERUR #### [facility] [address] [place] [address] Dr. Manuel Sandhu CAST NONE SEEN Normal NONE SEEN [facility] [place] Comment on above: Performed By: #### U MICRO, ERUR #### [facility] [address] [place] [address] Dr. Manuel Sandhu Crystals LM Nom (Urine sed) NONE SEEN Normal NONE SEEN The [facility] Comment on above: Performed By: #### U MICRO, ERUR #### [facility] [address] [address] [address] Manuel Sandhu Epithelial cells LM Ql (Urine sed) FEW Abnormal NONE SEEN /RARE The [facility] Comment on above: Performed By: #### U MICRO, ERUR #### [facility] [address] [address] [address] Manuel Sandhu MUCOUS TRACE Abnormal NONE SEEN The [facility] Comment on above: Performed By: #### U MICRO, ERUR #### [facility] [address] [place] [address] Dr. Manuel Sandhu RBC 5-10 Abnormal 0-2 [facility] [place] Comment on above: Performed By: #### U MICRO, ERUR #### [facility] [address] [place] [address] Dr. Manuel Sandhu WBC 2-5 Abnormal NONE SEEN The [facility] Comment on above: Performed By: #### U MICRO, ERUR #### [facility] [address] [place] [address] Dr. Manuel Sandhu No Panel InformationOrdered By: Dorita Niño on 08-19-2022 CSF Glucose 55 mg/dL 40-70 [facility] CSF Total Protein 24 mg/dL 15-45 [facility] CBC AUTO DIFFon 08-16-2022 BASO # 0.1 103/ul Normal 0.0-0.1 [facility] [place] Comment on above: Performed By: #### U MICRO, ERUR #### [facility] [address] [place] [address] Dr. Manuel Sandhu Basophils/100 WBC (Bld) 0.4 % Normal 0.2-2.0 [facility] [place] Comment on above: Performed By: #### U MICRO, ERUR #### [facility] [address] [place] [address] Dr. Manuel Sandhu EO # 0.2 103/ul Normal 0.0-0.7 [facility] [place] Comment on above: Performed By: #### U MICRO, ERUR #### [facility] [address] [place] [address] Dr. Manuel Sandhu Eosinophils/100 WBC (Bld) 1.8 % Normal 0.9-7.0 [facility] [place] Comment on above: Performed By: #### U MICRO, ERUR #### [facility] [address] [place] [address] Dr. Manuel Sandhu Erythrocyte distribution width (RBC) [Ratio] 13.6 % Normal 11.0-15.0 [facility] [place] Comment on above: Performed By: #### U MICRO, ERUR #### [facility] [address] [place] [address] Dr. Manuel Sandhu Hematocrit (Bld) [Volume fraction] 35.8 % Critically low 36.0-48.0 [facility] [place] Comment on above: Performed By: #### U MICRO, ERUR #### [facility] [address] [place] [address] Dr. Manuel Sandhu Hemoglobin (Bld) [Mass/Vol] 12.2 g/dL Normal 12.0-16.0 [facility] [place] Comment on above: Performed By: #### U MICRO, ERUR #### [facility] [address] [place] [address] Dr. Manuel Sandhu IG # 0.05 10e3/ul Critically high 0.00-0.03 [facility] Comment on above: Performed By: #### U MICRO, ERUR #### [facility] [address] [place] [address] Dr. Manuel Sandhu IG % 0.4 % Normal 0.0-0.5 [facility] [place] Comment on above: Performed By: #### U MICRO, ERUR #### [facility] [address] [place] [address] Dr. Manuel Sandhu LYMPH # 2.0 103/ul Normal 1.2-3.8 The [facility] Comment on above: Performed By: #### U MICRO, ERUR #### [facility] [address] [place] [address] Dr. Manuel Sandhu Lymphocytes/100 WBC (Bld) 18.1 % Critically low 20.5-60.0 [facility] [place] Comment on above: Performed By: #### U MICRO, ERUR #### [facility] [address] [place] [address] Dr. Manuel Sandhu MANUAL DIFF REQ NO Normal [facility] Comment on above: Performed By: #### U MICRO, ERUR #### [facility] [address] [place] [address] Dr. Manuel Sandhu MCH (RBC) [Entitic mass] 32.0 pg Normal 26.7-34.0 [facility] [place] Comment on above: Performed By: #### U MICRO, ERUR #### [facility] [address] [address] [address] Manuel Sandhu MCHC (RBC) [Mass/Vol] 34.1 g/dL Normal 29.9-35.2 The [facility] Comment on above: Performed By: #### U MICRO, ERUR #### [facility] [address] [address] [address] Manuel Sandhu MCV (RBC) [Entitic vol] 94.0 fL Normal 81.0-99.0 The [facility] Comment on above: Performed By: #### U MICRO, ERUR #### [facility] [address] [address] [address] Manuel Sandhu MONO # 0.7 103/ul Normal 0.3-0.8 The [facility] Comment on above: Performed By: #### U MICRO, ERUR #### [facility] [address] [place] [address] Dr. Manuel Sandhu Monocytes/100 WBC (Bld) 5.8 % Normal 1.7-12.0 [facility] [place] Comment on above: Performed By: #### U MICRO, ERUR #### [facility] [address] [address] [address] Manuel Sandhu NEUT # 8.2 103/ul Critically high 1.4-6.5 [facility] Comment on above: Performed By: #### U MICRO, ERUR #### [facility] [address] [place] [address] Dr. Manuel Sandhu Neutrophils/100 WBC (Bld) 73.5 % Normal 43.0-75.0 The [facility] Comment on above: Performed By: #### U MICRO, ERUR #### [facility] [address] [address] [address] Manuel Sandhu Platelet mean volume (Bld) [Entitic vol] 11.3 fL Normal 9.5-13.5 [facility] Comment on above: Performed By: #### U MICRO, ERUR #### [facility] [address] [address] [address] Manuel Sandhu PLT 284 103/ul Normal 150-450 The [facility] Comment on above: Performed By: #### U MICRO, ERUR #### [facility] [address] [address] [address] Manuel Sandhu RBC 3.81 106/ul Critically low 4.20-5.40 [facility] Comment on above: Performed By: #### U MICRO, ERUR #### [facility] [address] [address] [address] Manuel Sandhu WBC 11.2 103/ul Critically high 4.0-11.0 [facility] Comment on above: Performed By: #### U MICRO, ERUR #### [facility] [address] [address] [address] Mnauel Sandhu D-DIMERon 08-16-2022 D-DIMER 0.34 mg/L FEU Normal <=0.59 [facility] Comment on above: Performed By: #### U MICRO, ERUR #### [facility] [address] [address] [address] Manuel Sandhu D-DIMER COMMENTS SEE BELOW Normal [facility] Comment on above: Result Comment: Incr eases [...] Performed By: #### U MICRO, ERUR #### [facility] [address] [address] [address] Manuel Sandhu PROF CHEM 8 (BAS METB)on Anion gap [Moles/Vol] 10.6 mmol/L Normal [facility] Comment on above: Performed By: #### I NFLUAB #### [facility] [address] [address] [address] Manuel Sandhu Calcium [Mass/Vol] 9.2 mg/dL Normal 8.5-10.1 [facility] Comment on above: Performed By: #### I NFLUAB #### [facility] [address] [address] [address] Manuel Sandhu Chloride [Moles/Vol] 103 mmol/L Normal 98-107 [facility] [place] Comment on above: Performed By: #### I NFLUAB #### [facility] [address] [address] [address] Manuel Sandhu CO2 [Moles/Vol] 28.4 mmol/L Normal 21.0-32.0 [facility] Comment on above: Performed By: #### I NFLUAB #### [facility] [address] [address] [address] Manuel Sandhu Creatinine [Mass/Vol] 0.61 mg/dL Normal 0.55-1.02 [facility] [place] Comment on above: Performed By: #### I NFLUAB #### [facility] [address] [address] [address] Manuel Sandhu EGFR-AF MARSHALLESE >60 Normal >=60 [facility] Comment on above: Performed By: #### I NFLUAB #### [facility] [address] [address] [address] Manuel Sandhu EGFR-NON AF MARSHALLESE >60 Normal >=60 [facility] [place] Comment on above: Performed By: #### I NFLUAB #### [facility] [address] [address] [address] Manuel Sandhu Glucose [Mass/Vol] 90 mg/dL Normal 74-106 [facility] Comment on above: Performed By: #### I NFLUAB #### [facility] [address] [address] [address] Manuel Sandhu Potassium [Moles/Vol] 4.0 mmol/L Normal 3.5-5.1 [facility] Comment on above: Performed By: #### I NFLUAB #### [facility] [address] [address] [address] Manuel Sandhu Sodium [Moles/Vol] 138 mmol/L Normal 136-145 [facility] Comment on above: Performed By: #### I NFLUAB #### [facility] [address] [place], [place] [address] Dr. Manuel Sandhu Urea nitrogen [Mass/Vol] 16.0 mg/dL Normal 7.0-18.0 [facility] [place] Comment on above: Performed By: #### I NFLUAB #### [facility] [address] [place], [place] [address] Dr. Manuel Sandhu Urea nitrogen/Creatinine [Mass ratio] 26.2 mg/mg Normal [facility] [place] Comment on above: Performed By: #### I NFLUAB #### [facility] [address] [place], [place] [address] Dr. Manuel Sandhu XR CHEST 1 Von [...] YOLI FRANKS Date: 2022-08-16 14:16 Normal [facility] Albumin [Mass/volume] in Ser um or PlasmaOrdered By: Sangeetha Peña on 08-12-2022 Albumin [Mass/Vol] 3.2 g/dL 3.2-5.5 [facility] Basophils Auto (Bld) [#/Vol] Ordered By: Sangeetha Peña on 08-12-2022 Basophils (Bld) [#/Vol] 0.1 10*3/uL 0.0-0.2 [facility] Basophils/100 WBC Auto (Bld) Ordered By: Sangeetha Peña on 08-12-2022 Basophils/100 WBC (Bld) 0.7 % . [facility] C reactive protein [Mass/vol ume] in Serum or PlasmaOrdered By: Sangeetha Peña on 08-12-2022 CRP [Mass/Vol] 0.5 mg/dL 0.0-1.0 [facility] Creatinine and Glomerular fi ltration rate.predicted panel (S/P/Bld)Ordered By: Sangeetha Peña on 08-12-2022 Creatinine [Mass/Vol] 0.65 mg/dL 0.44-1.03 [facility] Eosinophils Auto (Bld) [#/Vo l]Ordered By: Sangeetha Peña on 08-12-2022 Eosinophils (Bld) [#/Vol] 0.4 10*3/uL 0.0-0.45 [facility] Eosinophils/100 WBC Auto (Bl d)Ordered By: Sangeetha Peña on 08-12-2022 Eosinophils/100 WBC (Bld) 5.2 % . [facility] Erythrocyte distribution wid th Auto (RBC) [Ratio]Ordered By: Sangeetha Peña on 08-12-2022 Erythrocyte distribution width (RBC) [Ratio] 14.4 % 11.9-15.3 [facility] Erythrocyte sedimentation ra te by Photometric methodOrdered By: Dorita Niño on 08-12-2022 ESR Photometric method (d) [Velocity] 3 mm/hr 0-19 [facility] Estimated glomerular filtrat ion rate (GFR) non- AmericanOrdered By: Sangeetha Peña on 08-12-2022 GFR/1.73 sq M.predicted among non-blacks MDRD (S/P/Bld) [Vol rate/Area] > 60 mL/Min [facility] Folate [Mass/volume] in Seru m or PlasmaOrdered By: Lizzeth Malave on 08-12-2022 Folate [Mass/Vol] 15.3 ng/mL >5.9 [facility] Comment on above: Folate reference ran ge: >5.9 ng/mlThe WHO technical consultation on folate and vitamin [id number] has determined that folate concentrations lessthan 4 ng/ml are considered deficient. Globulin Calc (S) [Mass/Vol] Ordered By: Sangeetha Peña on 08-12-2022 Globulin (S) [Mass/Vol] 2.4 g/dL [facility] HCG ( test) IA.rapi d Ql (U)Ordered By: Lizzeth Malave on 08-12-2022 HCG ( test) Ql (U) Negative [facility] Hematocrit Auto (Bld) [Volum e fraction]Ordered By: Sangeetha Peña on 08-12-2022 Hematocrit (Bld) [Volume fraction] 34.6 % 34.0-46.4 [facility] Hemoglobin [Mass/volume] in BloodOrdered By: Sangeehta Peña on 08-12-2022 Hemoglobin (Bld) [Mass/Vol] 11.3 g/dL 11.8-15.4 [facility] - Chemistry and C hemistry - challengeOrdered By: Lizzeth Malave on 08-12-2022 Cobalamin (Vitamin B12) [Mass/Vol] 610 pg/mL 180-914 [facility] Magnesium [Mass/Vol] 1.9 mg/dL 1.6-2.6 [facility] - Hematology and Cell countsOrdered By: Sangeetha Peña on 08-12-2022 Nucleated RBC/100 WBC (Bld) [Ratio] 0.1 % 0-0.5 [facility] Leukocytes [#/volume] in Blo od by Automated countOrdered By: Sangeetha Peña on 08-12-2022 WBC (Bld) [#/Vol] 8.3 10*3/uL 4.5-11.0 [facility] Lymphocytes Auto (Bld) [#/Vo l]Ordered By: Sangeetha Peña on 08-12-2022 Lymphocytes (Bld) [#/Vol] 2.3 10*3/uL 1.00-4.8 [facility] Lymphocytes/100 WBC Auto (Bl d)Ordered By: Sangeetha Peña on 08-12-2022 Lymphocytes/100 WBC (Bld) 27.4 % . [facility] MCH Auto (RBC) [Entitic mass ]Ordered By: Sangeetha Peña on 08-12-2022 MCH (RBC) [Entitic mass] 32.0 pg 24.7-34.3 [facility] MCHC Auto (RBC) [Mass/Vol]Or dered By: Sangeetha Peña on 08-12-2022 MCHC (RBC) [Mass/Vol] 32.8 g/dL 32.0-35.0 [facility] MCV Auto (RBC) [Entitic vol] Ordered By: Sangeetha Peña on 08-12-2022 MCV (RBC) [Entitic vol] 97.7 fL 80-100 [facility] Monocytes Auto (Bld) [#/Vol] Ordered By: Sangeetha Peña on 08-12-2022 Monocytes (Bld) [#/Vol] 0.7 10*3/uL 0.0-0.8 [facility] Monocytes/100 WBC Auto (Bld) Ordered By: Sangeetha Peña on 08-12-2022 Monocytes/100 WBC (Bld) 8.7 % . [facility] Neutrophils Auto (Bld) [#/Vo l]Ordered By: Sangeetha Peña on 08-12-2022 Neutrophils (Bld) [#/Vol] 4.8 10*3/uL 1.8-7.7 [facility] Neutrophils/100 WBC Auto (Bl d)Ordered By: Sangeetha Peña on 08-12-2022 Neutrophils/100 WBC (Bld) 58.0 % . [facility] No Panel InformationOrdered By: Sangeetha Peña on 08-12-2022 Estimated GFR () > 60 mL/Min [facility] Comment on above: GFR estimated refere nce range: According to KDOQI guidelines, <60 ml/min/1.73m2 is sufficient to diagnose a patient with chronic kidney disease. Pharmacy Creatinine Clearance (Chem 140.31 [facility] Platelet mean volume Auto (B ld) [Entitic vol]Ordered By: Sangeetha Peña on 08-12-2022 Platelet mean volume (Bld) [Entitic vol] 10.2 fL 6.3-10.7 [facility] Platelets Auto (Bld) [#/Vol] Ordered By: Sangeetha Peña on 08-12-2022 Platelets (Bld) [#/Vol] 263 10*3/uL 150-450 [facility] Protein [Mass/volume] in Ser um or PlasmaOrdered By: Sangeetha Peña on 08-12-2022 Protein [Mass/Vol] 5.6 g/dL 6.1-7.9 [facility] RBC Auto (Bld) [#/Vol]Ordere d By: Sangeetha Peña on 08-12-2022 RBC (Bld) [#/Vol] 3.54 10*6/uL 3.60-5.00 [facility] Serum or plasma alanine alberto otransferase measurement without P-5'-P (enzymatic activiOrdered By: Sangeetha Peña on 08-12-2022 ALT No additional P-5'-P [Catalytic activity/Vol] 22 U/L 10-60 [facility] Serum or plasma albumin/glob ulin mass ratioOrdered By: Sangeetha Peña on 08-12-2022 Albumin/Globulin [Mass ratio] 1.3 {ratio} [facility] Serum or plasma alkaline marquez sphatase measurement (enzymatic activity/volume)Ordered By: Sangeetha Peña on 08-12-2022 ALP [Catalytic activity/Vol] 54 U/L 32-92 [facility] Serum or plasma anion gap de terminationOrdered By: Sangeetha Peña on 08-12-2022 Anion gap [Moles/Vol] 10.6 mmol/L 6.0-15.0 [facility] Serum or plasma aspartate am inotransferase measurement (enzymatic activity/volume)Ordered By: Sangeetha Peña on 08-12-2022 AST [Catalytic activity/Vol] 20 U/L 10-42 [facility] Serum or plasma calcium audie urement (mass/volume)Ordered By: Sangeetha Peña on 08-12-2022 Calcium [Mass/Vol] 8.8 mg/dL 8.2-10.2 [facility] Serum or plasma chloride nimisha surement (moles/volume)Ordered By: Sangeetha Peña on 08-12-2022 Chloride [Moles/Vol] 105 mmol/L 95-114 [facility] Serum or plasma glucose audie urement (mass/volume)Ordered By: Sangeetha Peña on 08-12-2022 Glucose [Mass/Vol] 85 mg/dL 70-100 [facility] Comment on above: ADA recommended refe rence rangeRandom Glucose Reference Range is dependent on time and content of last meal. Glucose of more than 200 mg/dL in a nonstressed, ambulatory subject supports the diagnosis of Diabetes Mellitus. Serum or plasma potassium me asurement (moles/volume)Ordered By: Sangeetha Peña on 08-12-2022 Potassium [Moles/Vol] 4.2 mmol/L 3.5-5.1 [facility] Serum or plasma sodium measu rement (moles/volume)Ordered By: Sangeetha Peña on 08-12-2022 Sodium [Moles/Vol] 140 mmol/L 136-146 [facility] Serum or plasma total biliru bin measurement (mass/volume)Ordered By: Sangeetha Peña on 08-12-2022 Bilirubin [Mass/Vol] 0.5 mg/dL 0.3-1.2 [facility] Serum or plasma total carbon dioxide measurement (moles/volume)Ordered By: Sangeetha Peña on 08-12-2022 CO2 [Moles/Vol] 28.6 mmol/L 22.0-30.[address] [facility] Serum or plasma urea nitroge n measurement (mass/volume)Ordered By: Sangeetha Peña on 08-12-2022 Urea nitrogen [Mass/Vol] 7 mg/dL 9-23 [facility] TSH DL <= 0.005 mIU/L QnOrde red By: Lizzeth Malave on 08-12-2022 TSH Qn 1.79 m[IU]/L 0.45-5.33 [facility] Troponin I.cardiac [Mass/vol ume] in Serum or Plasma by High sensitivity methodOrdered By: Lizzeth Malave on 08-12-2022 Troponin I.cardiac High sensitivity method [Mass/Vol] < 3 pg/mL 0-15 [facility] CBC AUTO DIFFon 08-11-2022 BASO # 0.1 103/ul Normal 0.0-0.1 [facility] Comment on above: Performed By: #### C JENNIE PATRICK LIPA #### [facility] [address] [address] [address] Manuel Sandhu Basophils/100 WBC (Bld) 0.5 % Normal 0.2-2.0 [facility] Comment on above: Performed By: #### C MP JENNIE, LIPA #### [facility] [address] [address] [address] Manuel Sandhu EO # 0.4 103/ul Normal 0.0-0.7 [facility] Comment on above: Performed By: #### C JENNIE PATRICK LIPA #### [facility] [address] [place] [address] Dr. Manuel Sandhu Eosinophils/100 WBC (Bld) 2.4 % Normal 0.9-7.0 [facility] Comment on above: Performed By: #### C JENNIE PATRICK LIPA #### [facility] [address] [place] [address] Dr. Manuel Sandhu Erythrocyte distribution width (RBC) [Ratio] 14.1 % Normal 11.0-15.0 [facility] Comment on above: Performed By: #### C JENNIE PATRICK LIPA #### [facility] [address] [place] [address] Dr. Manuel Sandhu Hematocrit (Bld) [Volume fraction] 39.4 % Normal 36.0-48.0 [facility] Comment on above: Performed By: #### C JENNIE PATRICK LIPA #### [facility] [address] [place] [address] Dr. Manuel Sandhu Hemoglobin (Bld) [Mass/Vol] 13.3 g/dL Normal 12.0-16.0 [facility] Comment on above: Performed By: #### C JENNIE PATRICK LIPA #### [facility] [address] [place] [address] Dr. Manuel Sandhu IG # 0.07 10e3/ul Critically high 0.00-0.03 [facility] Comment on above: Performed By: #### C JENNIE PATRICK LIPA #### [facility] [address] [place] [address] Dr. Manuel Sandhu IG % 0.5 % Normal 0.0-0.5 [facility] Comment on above: Performed By: #### C JENNIE PATRICK LIPA #### [facility] [address] [place] [address] Dr. Manuel Sandhu LYMPH # 3.6 103/ul Normal 1.2-3.8 [facility] Comment on above: Performed By: #### C MP, JENNIE, LIPA #### [facility] [address] [place] [address] Dr. Manuel Sandhu Lymphocytes/100 WBC (Bld) 23.5 % Normal 20.5-60.0 [facility] Comment on above: Performed By: #### C MP, JENNIE, LIPA #### [facility] [address] [place] [address] Dr. Manuel Sandhu MANUAL DIFF REQ NO Normal [facility] Comment on above: Performed By: #### C MP, JENNIE, LIPA #### [facility] [address] [place] [address] Dr. Manuel Sandhu MCH (RBC) [Entitic mass] 32.1 pg Normal 26.7-34.0 [facility] Comment on above: Performed By: #### C MP, JENNIE, LIPA #### [facility] [address] [place] [address] Dr. Manuel Sandhu MCHC (RBC) [Mass/Vol] 33.8 g/dL Normal 29.9-35.2 [facility] Comment on above: Performed By: #### C MP, JENNIE, LIPA #### [facility] [address] [place] [address] Dr. Manuel Sandhu MCV (RBC) [Entitic vol] 95.2 fL Normal 81.0-99.0 [facility] Comment on above: Performed By: #### C MP, JENNIE, LIPA #### [facility] [address] [place] [address] Dr. Manuel Sandhu MONO # 0.9 103/ul Critically high 0.3-0.8 [facility] Comment on above: Performed By: #### C MP, JENNIE, LIPA #### [facility] [address] [place] [address] Dr. Manuel Sandhu Monocytes/100 WBC (Bld) 5.8 % Normal 1.7-12.0 [facility] Comment on above: Performed By: #### C MP, JENNIE, LIPA #### [facility] [address] [place] [address] Dr. Manuel Sandhu NEUT # 10.3 103/ul Critically high 1.4-6.5 [facility] Comment on above: Performed By: #### C JENNIE PATRICK LIPA #### [facility] [address] [address] [address] Manuel Sandhu Neutrophils/100 WBC (Bld) 67.3 % Normal 43.0-75.0 [facility] Comment on above: Performed By: #### C JENNIE PATRICK LIPA #### [facility] [address] [address] [address] Manuel Sandhu Platelet mean volume (Bld) [Entitic vol] 11.4 fL Normal 9.5-13.5 [facility] Comment on above: Performed By: #### C JENNIE PATRICK LIPA #### [facility] [address] [address] [address] Manuel Sandhu PLT 364 103/ul Normal 150-450 [facility] Comment on above: Performed By: #### C JENNIE PATRICK LIPA #### [facility] [address] [address] [address] Manuel Sandhu RBC 4.14 106/ul Critically low 4.20-5.40 [facility] Comment on above: Performed By: #### C JENNIE PATRICK LIPA #### [facility] [address] [address] [address] Manuel Sandhu WBC 15.3 103/ul Critically high 4.0-11.0 [facility] Comment on above: Performed By: #### C JENNIE PATRICK LIPA #### [facility] [address] [address] [address] STROKE HEAD WOon [...] YOLI MCKEON Date: 2022-08-11 15:21 Normal [facility] ER URINE PROFILEon 2 Bilirubin Ql (U) Negative Normal NEGATIVE [facility] Comment on above: Performed By: #### U MICRO, ERUR #### [facility] [address] [place] [address] Dr. Manuel Sandhu Clarity (U) CLEAR Normal CLEAR [facility] Comment on above: Performed By: #### U MICRO, ERUR #### [facility] [address] [place] [address] Dr. Mnauel Sandhu Color (U) LT. YELLOW Normal YELLOW [facility] Comment on above: Performed By: #### U MICRO, ERUR #### [facility] [address] [place] [address] Dr. Manuel Sandhu ERUAHD A micrscopic examina tion will be performed if indicated. Normal [facility] Comment on above: Performed By: #### U MICRO, ERUR #### [facility] [address] [place] [address] Dr. Manuel Sandhu Glucose Ql (U) Negative Normal NEGATIVE [facility] Comment on above: Performed By: #### U MICRO, ERUR #### [facility] [address] [place] [address] Dr. Manuel Sandhu Hemoglobin Ql (U) Negative Normal NEGATIVE [facility] Comment on above: Performed By: #### U MICRO, ERUR #### [facility] [address] [place] [address] Dr. Manuel Sandhu Ketones Ql (U) Negative Normal NEGATIVE [facility] Comment on above: Performed By: #### U MICRO, ERUR #### [facility] [address] [place] [address] Dr. Manuel Sandhu LEUKOCYTES Negative Normal NEGATIVE [facility] Comment on above: Performed By: #### U MICRO, ERUR #### [facility] [address] [address] [address] Manuel Sandhu Nitrite Ql (U) Negative Normal NEGATIVE [facility] Comment on above: Performed By: #### U MICRO, ERUR #### [facility] [address] [place] [address] Dr. Manuel Sandhu pH (U) 7.0 [pH] Normal 5-9 [facility] Comment on above: Performed By: #### U MICRO, ERUR #### [facility] [address] [place] [address] Dr. aMnuel Sandhu SPEC GRAVITY <=1.005 Abnormal 1.005-<=1.02 5 [facility] Comment on above: Performed By: #### U MICRO, ERUR #### [facility] [address] [place] [address] Dr. Manuel Sandhu UA PROTEIN Negative Normal NEGATIVE/ TRACE [facility] Comment on above: Performed By: #### U MICRO, ERUR #### [facility] [address] [place] [address] Dr. Manuel Sandhu UR MICRO IND NOT INDICATED Normal [facility] Comment on above: Performed By: #### U MICRO, ERUR #### [facility] [address] [place] [address] Dr. Manuel Sandhu Urobilinogen Qn (U) 0.2 {Lucila'U}/dL Normal 0.2 - 1. 0 [facility] Comment on above: Performed By: #### U MICRO, ERUR #### [facility] [address] [place] [address] Dr. Manuel Sandhu LACTATE/LACTIC ACIDon 2021 Lactate [Moles/Vol] 1.5 mmol/L Normal 0.4-1.9 [facility] Comment on above: Performed By: #### I NFLUAB #### [facility] [address] [place] [address] Dr. Manuel Sandhu LIPASEon 08-11-2022 Lipase [Catalytic activity/Vol] 84.0 U/L Normal 73.0-393.0 [facility] Comment on above: Performed By: #### C MP, JENNIE, LIPA #### [facility] [address] [place] [address] Dr. Manuel Sandhu URon 08-11-2022 , QUAL Negative Normal NEGATIVE [facility] Comment on above: Performed By: #### U MICRO, ERUR #### [facility] [address] [place] [address] Dr. Manuel Sandhu PROF 14(COMP METB)on 022 Albumin [Mass/Vol] 4.3 g/dL Normal 3.4-5.0 [facility] Comment on above: Performed By: #### C MP, JENNIE, LIPA #### [facility] [address] [place] [address] Dr. Manuel Sandhu Albumin/Globulin [Mass ratio] 1.1 {ratio} Normal [facility] Comment on above: Performed By: #### C MP, JENNIE, LIPA #### [facility] [address] [place] [address] Dr. Manuel Sandhu ALP [Catalytic activity/Vol] 87 U/L Normal 46-116 [facility] Comment on above: Performed By: #### C MP, JENNIE, LIPA #### [facility] [address] [place] [address] Dr. Manuel Sandhu ALT [Catalytic activity/Vol] 32 U/L Normal 14-59 [facility] Comment on above: Performed By: #### C MP, JENNIE, LIPA #### [facility] [address] [place] [address] Dr. Manuel Sandhu Anion gap [Moles/Vol] 12.7 mmol/L Normal [facility] Comment on above: Performed By: #### C MP, JENNIE, LIPA #### [facility] [address] [address] [address] Manuel Sandhu AST [Catalytic activity/Vol] 24 U/L Normal 15-37 [facility] Comment on above: Performed By: #### C MP, JENNIE, LIPA #### [facility] [address] [address] [address] Manuel Sandhu Bilirubin [Mass/Vol] 0.3 mg/dL Normal 0.2-1.0 [facility] Comment on above: Performed By: #### C MP, JENNIE, LIPA #### [facility] [address] [address] [address] Manuel Sandhu Calcium [Mass/Vol] 9.4 mg/dL Normal 8.5-10.1 [facility] Comment on above: Performed By: #### C MP, JENNIE, LIPA #### [facility] [address] [place] [address] Dr. Manuel Sandhu Chloride [Moles/Vol] 100 mmol/L Normal 98-107 [facility] Comment on above: Performed By: #### C MP, JENNIE, LIPA #### [facility] [address] [address] [address] Manuel Sandhu CO2 [Moles/Vol] 27.7 mmol/L Normal 21.0-32.0 [facility] Comment on above: Performed By: #### C MP, JENNIE, LIPA #### [facility] [address] [address] [address] Manuel Sandhu Creatinine [Mass/Vol] 0.71 mg/dL Normal 0.55-1.02 [facility] Comment on above: Performed By: #### C MP, JENNIE, LIPA #### [facility] [address] [address] [address] Manuel Sandhu EGFR-AF MARSHALLESE >60 Normal >=60 [facility] Comment on above: Performed By: #### C MP, JENNIE, LIPA #### [facility] [address] [address] [address] Manuel Sandhu EGFR-NON AF MARSHALLESE >60 Normal >=60 [facility] Comment on above: Performed By: #### C CELINA JENNIE, LIPA #### [facility] [address] [address] [address] Manuel Sandhu Globulin (S) [Mass/Vol] 3.9 g/dL Normal [facility] Comment on above: Performed By: #### C MP JENNIE, LIPA #### [facility] [address] [address] [address] Manuel Sandhu Glucose [Mass/Vol] 109 mg/dL Critically high 74-106 [facility] Comment on above: Performed By: #### C CELINA JENNIE, LIPA #### [facility] [address] [place] [address] Dr. Manuel Sandhu Potassium [Moles/Vol] 3.4 mmol/L Critically low 3.5-5.1 [facility] Comment on above: Performed By: #### C CELINA JENNIE, LIPA #### [facility] [address] [place] [address] Dr. Manuel Sandhu Protein [Mass/Vol] 8.2 g/dL Normal 6.4-8.2 [facility] Comment on above: Performed By: #### C CELINA JENNIE, LIPA #### [facility] [address] [place] [address] Dr. Manuel Sandhu Sodium [Moles/Vol] 137 mmol/L Normal 136-145 [facility] Comment on above: Performed By: #### C CELINA JENNIE, LIPA #### [facility] [address] [place] [address] Dr. Manuel Sandhu Urea nitrogen [Mass/Vol] 10.0 mg/dL Normal 7.0-18.0 [facility] Comment on above: Performed By: #### C CELINA JENNIE, LIPA #### [facility] [address] [place] [address] Dr. Manuel Sandhu Urea nitrogen/Creatinine [Mass ratio] 14.1 mg/mg Normal [facility] Comment on above: Performed By: #### C CELINA JENNIE, LIPA #### [facility] [address] [place] [address] Dr. Manuel Sandhu PROTIMEon 08-11-2022 INR Coag (PPP) [Relative time] 0.96 {INR} Normal [facility] Comment on above: Performed By: #### I NFLUAB #### [facility] [address] [place] [address] Dr. Manuel Sandhu INR GUIDELINES SEE BELOW Normal [facility] Comment on above: Result Comment: CHUY RED INR: 2.0 - 3.0 CONDITIONS NOT LISTED BELOW 2.5 - 3.5 FOR PROSTHETIC HEART VALVE REPLACEMENT 2.5 - 3.5 RECURRENT THROMBOSIS Performed By: #### I NFLUAB #### [facility] [address] [place] [address] Dr. Manuel Sandhu PT Coag (PPP) [Time] 10.4 s Normal 9.0-11.6 [facility] Comment on above: Performed By: #### I NFLUAB #### [facility] [address] [place] [address] Dr. Manuel Sandhu PTTon 08-11-2022 aPTT Coag (Bld) [Time] 25.3 s Normal 22.3-36.2 [facility] Comment on above: Performed By: #### I NFLUAB #### [facility] [address] [place] [address] Dr. Manuel Sandhu TROPONIN, HIGH SENSITIVITYon 08-11-2022 HSTROP 4.5 pg/mL Normal 4.0-51.3 [facility] Comment on above: Result Comment: CUT- OFF POINTS HAVE BEEN ESTABLISHED BASED ON THE FOURTH UNIVERSAL DEFINITIONS OF MYOCARDIAL INFARCTION. THE UPPER REFERENCE LIMIT (URL) OF TROPONIN, DEFINED THE 99TH PERCENTILE OF cTnI DISTRIBUTION IN A REFERENCE POPULATION, HAS BEEN CONFIRMED THE DECISION THRESHOLD FOR NC DIAGNOSIS. Performed By: #### C JENNIE PATRICK LIPA #### [facility] [address] [place] [address] Dr. Manuel Sandhu TSHon 08-11-2022 TSH 1.778 uIU/mL Normal 0.358-3.740 [facility] Comment on above: Performed By: #### C JENNIE PATRICK LIPA #### [facility] [address] [address] [address] Manuel Sandhu CHEMISTRYOrdered By: SYSTEM SYSTEM on 08-08-2022 Anion gap [Moles/Vol] 11 mmol/L Normal 6 - 16 mEq/L [facility] Calcium [Mass/Vol] 9.0 mg/dL Normal 8.9 - 11. 1 mg/dL [facility] Chloride [Moles/Vol] 105 mmol/L Normal 101 - 1 11 mmol/L [facility] CO2 [Moles/Vol] 25 mmol/L Normal 21 - 31 mmol/L [facility] Creatinine [Mass/Vol] 0.6 mg/dL Normal 0.5 - 1.3 mg/dL [facility] Remisol GFR/1.73 sq M.predicted among blacks MDRD (S/P/Bld) [Vol rate/Area] mL/min/1.73 m2 Normal >=59mL/min/1 .73 m2 [facility] Chem S GFR/1.73 sq M.predicted among non-blacks MDRD (S/P/Bld) [Vol rate/Area] mL/min/1.73 m2 Normal >=59mL/min/1 .73 m2 [facility] Chem S Glucose [Mass/Vol] 84 mg/dL Normal 55 - 199 mg/dL [facility] Potassium [Moles/Vol] 4.2 mmol/L Normal 3.5 - 5.3 mmol/L [facility] Sodium [Moles/Vol] 137 mmol/L Normal 135 - 145 mmol/L [facility] Urea nitrogen [Mass/Vol] 13 mg/dL Normal 5 - 21 mg/dL [facility] Remisol Urea nitrogen/Creatinine [Mass ratio] 22 mg/mg High 10 - 20 [facility] Remisol CHEMISTRYOrdered By: Lab ROP User on 08-08-2022 Glucose [Mass/Vol] 98 mg/dL Normal 55 - 99 mg/dL [facility] POC Subsection POC Device SN [id number] Invalid Interpretation Code [facility] POC Subsection POC User ID [id number] Invalid Interpretation Code [facility] POC Subsection POC Username MOLLY RALPH Invalid Interpretation Code [facility] POC Subsection HEMATOLOGYOrdered By: SYSTEM SYSTEM on 08-08-2022 Basophils/100 WBC (Bld) 0.5 % Normal 0.0 - 2.0 % [facility] HemeAutoSS Basophils/Leukocytes Auto (Bld) [Pure # fraction] 0.1 E9/L Normal 0.0 - 0.2 E9/L [facility] HemeAutoSS Eosinophils/100 WBC (Bld) 2.8 % Normal 0.0 - 8.0 % [facility] HemeAutoSS Eosinophils/Leukocyte s Auto (Bld) [Pure # fraction] 0.3 E9/L Normal 0.0 - 0.5 E9/L [facility] HemeAutoSS Lymphocytes/100 WBC (Bld) 15.7 % Normal 14.0 - 50.0 % [facility] HemeAutoSS Lymphocytes/Leukocyte s Auto (Bld) [Pure # fraction] 1.7 E9/L Normal 1.0 - 4.0 E9/L [facility] HemeAutoSS Monocytes/100 WBC (Bld) 6.2 % Normal 4.0 - 14.0 % [facility] HemeAutoSS Monocytes/Leukocytes Auto (Bld) [Pure # fraction] 0.7 E9/L Normal 0.2 - 1.0 E9/L [facility] HemeAutoSS Neutrophils/100 WBC (Bld) 74.8 % Normal 36.0 - 75.0 % [facility] HemeAutoSS Neutrophils/Leukocyte s Auto (Bld) [Pure # fraction] 8.3 E9/L [...] POS Ctl Pass (08/08/22 9:59 AM) Normal [facility] Man Sero SARS-CoV+SARS-CoV-2 (COVID-19) Ag IA.rapid Ql [...] AM) Normal Negative [facility] UA Auto SS Melvern.plasma/Lithiu m.RBC (Bld) [Mass ratio] 0-3 /HPF Normal 0-3/HPF [...] AM) Invalid Interpretation Code 1.005 - 1.030 [facility] UA Auto SS UA Spec Desc Clean Catch (08/08/22 10:01 AM) Normal [facility] UA Auto SS Urobilinogen Qn (U) [id number] {Lucila'U}/dL Normal 0.0 - 1.0 EU/dL [facility] UA Auto SS WBC Auto Ql (U) Negative (08/08/22 10:01 AM) Normal Negative [facility] UA Auto SS WBC LM.HPF (Urine sed) [#/Area] 0-5 /HPF Normal 0-5/HPF [facility] UA Auto SS CBC AUTO DIFFon 07-19-2022 BASO # 0.1 103/ul Normal 0.0-0.1 [facility] [place] Comment on above: Performed By: #### I NFLUAB #### [facility] [address] [address] [address] Manuel Sandhu Basophils/100 WBC (Bld) 0.4 % Normal 0.2-2.0 [facility] Comment on above: Performed By: #### I NFLUAB #### [facility] [address] [address] [address] Manuel Sandhu EO # 0.3 103/ul Normal 0.0-0.7 [facility] Comment on above: Performed By: #### I NFLUAB #### [facility] [address] [address] [address] Manuel Sandhu Eosinophils/100 WBC (Bld) 2.4 % Normal 0.9-7.0 [facility] [place] Comment on above: Performed By: #### I NFLUAB #### [facility] [address] [place] [address] Dr. Manuel Sandhu Erythrocyte distribution width (RBC) [Ratio] 13.7 % Normal 11.0-15.0 [facility] [place] Comment on above: Performed By: #### I NFLUAB #### [facility] [address] [place] [address] Dr. Manuel Sandhu Hematocrit (Bld) [Volume fraction] 36.5 % Normal 36.0-48.0 [facility] [place] Comment on above: Performed By: #### I NFLUAB #### [facility] [address] [place] [address] Dr. Manuel Sandhu Hemoglobin (Bld) [Mass/Vol] 12.3 g/dL Normal 12.0-16.0 [facility] [place] Comment on above: Performed By: #### I NFLUAB #### [facility] [address] [place] [address] Dr. Manuel Sandhu IG # 0.04 10e3/ul Critically high 0.00-0.03 [facility] Comment on above: Performed By: #### I NFLUAB #### [facility] [address] [place] [address] Dr. Manuel Sandhu IG % 0.3 % Normal 0.0-0.5 [facility] [place] Comment on above: Performed By: #### I NFLUAB #### [facility] [address] [place] [address] Dr. Manuel Sandhu LYMPH # 2.6 103/ul Normal 1.2-3.8 [facility] Comment on above: Performed By: #### I NFLUAB #### [facility] [address] [place] [address] Dr. Manuel Sandhu Lymphocytes/100 WBC (Bld) 22.3 % Normal 20.5-60.0 [facility] [place] Comment on above: Performed By: #### I NFLUAB #### [facility] [address] [place] [address] Dr. Manuel Sandhu MANUAL DIFF REQ NO Normal [facility] Comment on above: Performed By: #### I NFLUAB #### [facility] [address] [place] [address] Dr. Manuel Sandhu MCH (RBC) [Entitic mass] 32.5 pg Normal 26.7-34.0 [facility] [place] Comment on above: Performed By: #### I NFLUAB #### [facility] [address] [place] [address] Dr. Manuel Sandhu MCHC (RBC) [Mass/Vol] 33.7 g/dL Normal 29.9-35.2 [facility] Comment on above: Performed By: #### I NFLUAB #### [facility] [address] [place] [address] Dr. Manuel Sandhu MCV (RBC) [Entitic vol] 96.6 fL Normal 81.0-99.0 [facility] [place] Comment on above: Performed By: #### I NFLUAB #### [facility] [address] [place] [address] Dr. Manuel Sandhu MONO # 0.6 103/ul Normal 0.3-0.8 [facility] Comment on above: Performed By: #### I NFLUAB #### [facility] [address] [place] [address] Dr. Manuel Sandhu Monocytes/100 WBC (Bld) 5.2 % Normal 1.7-12.0 [facility] [place] Comment on above: Performed By: #### I NFLUAB #### [facility] [address] [place] [address] Dr. Manuel Sandhu NEUT # 8.2 103/ul Critically high 1.4-6.5 [facility] Comment on above: Performed By: #### I NFLUAB #### [facility] [address] [place] [address] Dr. Mnauel Sandhu Neutrophils/100 WBC (Bld) 69.4 % Normal 43.0-75.0 [facility] Comment on above: Performed By: #### I NFLUAB #### [facility] [address] [place] [address] Dr. Manuel Sandhu Platelet mean volume (Bld) [Entitic vol] 11.2 fL Normal 9.5-13.5 [facility] [place] Comment on above: Performed By: #### I NFLUAB #### [facility] [address] [place] [address] Dr. Manuel Sandhu PLT 308 103/ul Normal 150-450 [facility] [place] Comment on above: Performed By: #### I NFLUAB #### [facility] [address] [place] [address] Dr. Manuel Sandhu RBC 3.78 106/ul Critically low 4.20-5.40 [facility] Comment on above: Performed By: #### I NFLUAB #### [facility] [address] [place] [address] Dr. Manuel Sandhu WBC 11.8 103/ul Critically high 4.0-11.0 [facility] Comment on above: Performed By: #### I NFLUAB #### [facility] [address] [place] [address] Dr. Manuel Sandhu D-DIMERon 07-19-2022 D-DIMER 0.29 mg/L FEU Normal <=0.59 [facility] Comment on above: Performed By: #### U MICRO, ERUR #### [facility] [address] [place] [address] Dr. Manuel Sandhu D-DIMER COMMENTS SEE BELOW Normal [facility] Comment on above: Result Comment: Incr [...] Performed By: #### U MICRO, ERUR #### [facility] [address] [place] [address] Dr. Manuel Sandhu LIPASEon 07-19-2022 Lipase [Catalytic activity/Vol] 119.0 U/L Normal 73.0-393.0 [facility] [place] Comment on above: Performed By: #### C JENNIE PATRICK, LIPA #### [facility] [address] [place] [address] Dr. Manuel Sandhu PROF 14(COMP METB)on 022 Albumin [Mass/Vol] 3.5 g/dL Normal 3.4-5.0 [facility] Comment on above: Performed By: #### C CELINA JENNIE, LIPA #### [facility] [address] [place] [address] Dr. Manuel Sandhu Albumin/Globulin [Mass ratio] 1.0 {ratio} Normal [facility] [place] Comment on above: Performed By: #### C CELINA JENNIE, LIPA #### [facility] [address] [place] [address] Dr. Manuel Sandhu ALP [Catalytic activity/Vol] 65 U/L Normal 46-116 [facility] [place] Comment on above: Performed By: #### C CELINA JENNIE, LIPA #### [facility] [address] [place] [address] Dr. Manuel Sandhu ALT [Catalytic activity/Vol] 33 U/L Normal 14-59 [facility] [place] Comment on above: Performed By: #### C JENNIE PATRICK, LIPA #### [facility] [address] [place] [address] Dr. Manuel Sandhu Anion gap [Moles/Vol] 10.8 mmol/L Normal [facility] Comment on above: Performed By: #### C JENNIE PATRICK, LIPA #### [facility] [address] [place] [address] Dr. Manuel Sandhu AST [Catalytic activity/Vol] 20 U/L Normal 15-37 [facility] Comment on above: Performed By: #### C JENNIE PATRICK, LIPA #### [facility] [address] [place] [address] Dr. Manuel Sandhu Bilirubin [Mass/Vol] 0.1 mg/dL Critically low 0.2-1.0 [facility] Comment on above: Performed By: #### C JENNIE PATRICK, LIPA #### [facility] [address] [address] [address] Manuel Sandhu Calcium [Mass/Vol] 8.7 mg/dL Normal 8.5-10.1 [facility] Comment on above: Performed By: #### C MP, JENNIE, LIPA #### [facility] [address] [address] [address] Manuel Sandhu Chloride [Moles/Vol] 105 mmol/L Normal 98-107 [facility] Comment on above: Performed By: #### C MP, JENNIE, LIPA #### [facility] [address] [address] [address] Manuel Sandhu CO2 [Moles/Vol] 24.4 mmol/L Normal 21.0-32.0 [facility] Comment on above: Performed By: #### C MP, JENNIE, LIPA #### [facility] [address] [place] [address] Dr. Manuel Sandhu Creatinine [Mass/Vol] 0.91 mg/dL Normal 0.55-1.02 [facility] Comment on above: Performed By: #### C MP, JENNIE, LIPA #### [facility] [address] [address] [address] Manuel Sandhu EGFR-AF MARSHALLESE >60 Normal >=60 [facility] Comment on above: Performed By: #### C MP, JENNIE, LIPA #### [facility] [address] [place] [address] Dr. Manuel Sandhu EGFR-NON AF MARSHALLESE >60 Normal >=60 [facility] Comment on above: Performed By: #### C MP, JENNIE, LIPA #### [facility] [address] [address] [address] Manuel Sandhu Globulin (S) [Mass/Vol] 3.4 g/dL Normal [facility] Comment on above: Performed By: #### C MP, JENNIE, LIPA #### [facility] [address] [address] [address] Manuel Sanhdu Glucose [Mass/Vol] 127 mg/dL Critically high 74-106 [facility] Comment on above: Performed By: #### C MP JENNIE, LIPA #### [facility] [address] [place] [address] Dr. Manuel Sandhu Potassium [Moles/Vol] 3.2 mmol/L Critically low 3.5-5.1 [facility] Comment on above: Performed By: #### C MP JENNIE, LIPA #### [facility] [address] [place] [address] Dr. Manuel Sandhu Protein [Mass/Vol] 6.9 g/dL Normal 6.4-8.2 [facility] Comment on above: Performed By: #### C MP JENNIE, LIPA #### [facility] [address] [place] [address] Dr. Manuel Sandhu Sodium [Moles/Vol] 137 mmol/L Normal 136-145 [facility] Comment on above: Performed By: #### C CELINA JENNIE, LIPA #### [facility] [address] [place] [address] Dr. Manuel Sandhu Urea nitrogen [Mass/Vol] 13.0 mg/dL Normal 7.0-18.0 [facility] Comment on above: Performed By: #### C JENNIE PATRICK, LIPA #### [facility] [address] [place] [address] Dr. Manuel Sandhu Urea nitrogen/Creatinine [Mass ratio] 14.3 mg/mg Normal [facility] Comment on above: Performed By: #### C CELINA JENNIE, LIPA #### [facility] [address] [place] [address] Dr. Manuel Sandhu PROTIMEon 07-19-2022 INR Coag (PPP) [Relative time] 0.97 {INR} Normal [facility] Comment on above: Performed By: #### P TT, PT #### [facility] [address] [place] [address] Dr. Manuel Sandhu INR GUIDELINES SEE BELOW Normal [facility] Comment on above: Result Comment: CHUY RED INR: 2.0 - 3.0 CONDITIONS NOT LISTED BELOW 2.5 - 3.5 FOR PROSTHETIC HEART VALVE REPLACEMENT 2.5 - 3.5 RECURRENT THROMBOSIS Performed By: #### P TT, PT #### [facility] [address] [place] [address] Dr. Manuel Sandhu PT Coag (PPP) [Time] 10.5 s Normal 9.0-11.6 [facility] Comment on above: Performed By: #### P TT, PT #### [facility] [address] [place] [address] Dr. Manuel Sandhu PTTon 07-19-2022 aPTT Coag (Bld) [Time] 26.1 s Normal 22.3-36.2 [facility] Comment on above: Performed By: #### P TT, PT #### [facility] [address] [place] [address] Dr. Manuel Sandhu TROPONIN, HIGH SENSITIVITYon 07-19-2022 HSTROP 5.4 pg/mL Normal 4.0-51.3 [facility] Comment on above: Result Comment: CUT- OFF POINTS HAVE BEEN ESTABLISHED BASED ON THE FOURTH UNIVERSAL DEFINITIONS OF MYOCARDIAL INFARCTION. THE UPPER REFERENCE LIMIT (URL) OF TROPONIN, DEFINED THE 99TH PERCENTILE OF cTnI DISTRIBUTION IN A REFERENCE POPULATION, HAS BEEN CONFIRMED THE DECISION THRESHOLD FOR NC DIAGNOSIS. Performed By: #### U MICRO, ERUR #### [facility] [address] [place] [address] Dr. Manuel Sandhu HSTROP 5.1 pg/mL Normal 4.0-51.3 [facility] Comment on above: Result Comment: CUT- OFF POINTS HAVE BEEN ESTABLISHED BASED ON THE FOURTH UNIVERSAL DEFINITIONS OF MYOCARDIAL INFARCTION. THE UPPER REFERENCE LIMIT (URL) OF TROPONIN, DEFINED THE 99TH PERCENTILE OF cTnI DISTRIBUTION IN A REFERENCE POPULATION, HAS BEEN CONFIRMED THE DECISION THRESHOLD FOR NC DIAGNOSIS. Performed By: #### C MP, JENNIE, LIPA #### [facility] [address] [place] [address] Dr. Manuel Sandhu XR CHEST 1 Von [...] LUCIANA ALLEN Date: 2022-07-19 19:28 Normal [facility] Covid-19 PCR (CVDTB)on 05-16 SARS-CoV-2 (COVID-19) RNA JOSÉ MIGUEL+probe Ql (Unsp spec) Not detected Normal NOT DETECTED [facility] Comment on above: Result Comment: When diagnostic [...] for this test is supported by the Radiographer of Health and Human Service's declaration that [...] By: #### C JENNIE PATRICK LIPA #### [facility] [address] [place] [address] Dr. Manuel Sandhu XR CHEST 2 Von [...] CAROLYNE RALPH Date: 2022-06-12 10:12 Normal [facility] Covid-19 PCR (CVDTB)on 05-15 SARS-CoV-2 (COVID-19) RNA JOSÉ MIGUEL+probe Ql (Unsp spec) Not detected Normal NOT DETECTED [facility] Comment on above: Result Comment: When diagnostic [...] for this test is supported by the [place] of Health and Human Service's declaration that [...] used). Performed By: #### I NFLUAB #### [facility] [address] [address] [address] Manuel Sandhu CHEMISTRYOrdered By: SYSTEM SYSTEM on 04-20-2022 Anion gap [Moles/Vol] 12 mmol/L Normal 6 - 16 mEq/L [facility] Remisol Calcium [Mass/Vol] 9.5 mg/dL Normal 8.9 - 11. 1 mg/dL [facility] Remisol Chloride [Moles/Vol] 107 mmol/L Normal 101 - 1 11 mmol/L [facility] Remisol CO2 [Moles/Vol] 22 mmol/L Normal 21 - 31 mmol/L [facility] Remisol Creatinine [Mass/Vol] 0.6 mg/dL Normal 0.5 - 1.3 mg/dL [facility] Remisol GFR/1.73 sq M.predicted among blacks MDRD (S/P/Bld) [Vol rate/Area] mL/min/1.73 m2 Normal >=59mL/min/1 .73 m2 [facility] S GFR/1.73 sq M.predicted among non-blacks MDRD (S/P/Bld) [Vol rate/Area] mL/min/1.73 m2 Normal >=59mL/min/1 .73 m2 [facility] S Glucose [Mass/Vol] 98 mg/dL Normal 55 - 199 mg/dL [facility] Remisol Potassium [Moles/Vol] 3.6 mmol/L Normal 3.5 [...] Normal 0.0 - 8.0 % [facility] HemeAutoSS Eosinophils/Leukocyte s Auto (Bld) [Pure # fraction] 0.2 E9/L Normal 0.0 - 0.5 E9/L [facility] HemeAutoSS Lymphocytes/100 WBC (Bld) 18.1 % Normal 14.0 - 50.0 % [facility] HemeAutoSS Lymphocytes/Leukocyte s Auto (Bld) [Pure # fraction] 2.4 E9/L Normal 1.0 - 4.0 E9/L [facility] HemeAutoSS Monocytes/100 WBC (Bld) 6.2 % Normal 4.0 - 14.0 % [facility] HemeAutoSS Monocytes/Leukocytes Auto (Bld) [Pure # fraction] 0.8 E9/L Normal 0.2 - 1.0 E9/L [facility] HemeAutoSS Neutrophils/100 WBC (Bld) 73.5 % Normal 36.0 - 75.0 % [facility] HemeAutoSS Neutrophils/Leukocyte s Auto (Bld) [Pure # fraction] 9.6 E9/L [...] spec) Detected Critically abnormal NOT DETECTED [facility] Comment on above: Result Comment: This test is not yet approved or cleared by the [place] FDA. When there are no FDA-approved or cleared tests available, and other criteria are met, FDA can make tests available under an emergency access mechanism called an Emergency Use Authorization (EUA). The EUA for this test is supported by the Radiographer of Health and Human Service's declaration that [...] By: #### C JENNIE PATRICK LIPA #### [facility] [address] [place] [address] Dr. Manuel Sandhu GROUP A STREP CULTUREon 03-15 S. pyogenes Ag Ql (Unsp spec) Culture Observations: NEGATIVE FOR GROUP A STREPTOCOCCUS. Normal [facility] Comment on above: Performed By: #### U MICRO, ERUR #### [facility] [address] [address] [address] Manuel Sandhu INFLUENZA A AND B AGon 04-07 INFLUENZA A AG Negative Normal NEGATIVE SEE COMMENT [facility] Comment on above: Performed By: #### I NFLUAB #### [facility] [address] [address] [address] Manuel Sandhu INFLUENZA B AG Negative Normal NEGATIVE SEE COMMENT [facility] Comment on above: Performed By: #### I NFLUAB #### [facility] [address] [address] [address] Manuel Sandhu INTERNAL CONTROLS Within Normal Limits Normal Wi thin Normal Limits [facility] Comment on above: Performed By: #### I NFLUAB #### [facility] [address] [address] [address] Manuel Sandhu STREPT SCREENon 04-07-2022 STREP SCREEN A Negative Normal NEGATIVE [facility] Comment on above: Performed By: #### U MICRO, ERUR #### [facility] [address] [address] [address] Manuel Sandhu CHEMISTRYOrdered By: SYSTEM SYSTEM on 04-03-2022 Anion gap [Moles/Vol] 14 mmol/L Normal 6 - 16 mEq/L [facility] Remisol Calcium [Mass/Vol] 9.3 mg/dL Normal 8.9 [...] MDRD (S/P/Bld) [Vol rate/Area] mL/min/1.73 m2 Normal >=59mL/min/1 .73 m2 [facility] Chem S GFR/1.73 sq M.predicted among non-blacks MDRD (S/P/Bld) [Vol rate/Area] mL/min/1.73 m2 Normal >=59mL/min/1 .73 m2 [facility] S Glucose [Mass/Vol] 83 [...] Normal 0.0 - 8.0 % [facility] HemeAutoSS Eosinophils/Leukocyte s Auto (Bld) [Pure # fraction] 0.4 E9/L Normal 0.0 - 0.5 E9/L [facility] HemeAutoSS Lymphocytes/100 WBC (Bld) 24.5 % Normal 14.0 - 50.0 % [facility] HemeAutoSS Lymphocytes/Leukocyte s Auto (Bld) [Pure # fraction] 2.8 E9/L Normal 1.0 - 4.0 E9/L [facility] HemeAutoSS Monocytes/100 WBC (Bld) 6.4 % Normal 4.0 - 14.0 % [facility] HemeAutoSS Monocytes/Leukocytes Auto (Bld) [Pure # fraction] 0.7 E9/L Normal 0.2 - 1.0 E9/L [facility] HemeAutoSS Neutrophils/100 WBC (Bld) 65.2 % Normal 36.0 - 75.0 % [facility] HemeAutoSS Neutrophils/Leukocyte s Auto (Bld) [Pure # fraction] 7.3 E9/L [...] PM) Normal Negative [facility] UA Auto SS [place].plasma/Lithiu m.RBC (Bld) [Mass ratio] 0-3 /HPF Normal 0-3/HPF [...] [facility] UA Auto SS Urobilinogen Qn (U) [id number] {Lucila'U}/dL Normal 0.0 - 1.0 EU/dL [facility] UA Auto SS WBC Auto Ql (U) Negative (04/03/22 6:51 PM) Normal Negative [facility] UA Auto SS WBC LM.HPF (Urine sed) [#/Area] 0-5 /HPF Normal 0-5/HPF [facility] UA Auto SS GROUP A STREP CULTUREon 01-13 S. pyogenes Ag Ql (Unsp spec) Culture Observations: NEGATIVE FOR GROUP A STREPTOCOCCUS. Normal [facility] Comment on above: Performed By: #### I NFLUAB #### [facility] [address] [place] [address] Dr. Manuel Sandhu STREPT SCREENon 05-28-2022 STREP SCREEN A Negative Normal NEGATIVE [facility] Comment on above: Performed By: #### I NFLUAB #### [facility] [address] [place] [address] Dr. Manuel Sandhu CBC AUTO DIFFon 01-30-2022 BASO # 0.1 103/ul Normal 0.0-0.1 [facility] Comment on above: Performed By: #### C BC #### [facility] [address] [place] [address] Dr. Manuel Sandhu Basophils/100 WBC (Bld) 0.4 % Normal 0.2-2.0 [facility] Comment on above: Performed By: #### C BC #### [facility] [address] [place] [address] Dr. Manuel Sandhu EO # 0.4 103/ul Normal 0.0-0.7 [facility] Comment on above: Performed By: #### C BC #### [facility] [address] [place] [address] Dr. Manuel Sandhu Eosinophils/100 WBC (Bld) 3.0 % Normal 0.9-7.0 [facility] Comment on above: Performed By: #### C BC #### [facility] [address] [place] [address] Dr. Manuel Sandhu Erythrocyte distribution width (RBC) [Ratio] 13.3 % Normal 11.0-15.0 [facility] Comment on above: Performed By: #### C BC #### [facility] [address] [place] [address] Dr. Manuel Sandhu Hematocrit (Bld) [Volume fraction] 36.8 % Normal 36.0-48.0 [facility] Comment on above: Performed By: #### C BC #### [facility] [address] [place] [address] Dr. Manuel Sandhu Hemoglobin (Bld) [Mass/Vol] 12.2 g/dL Normal 12.0-16.0 [facility] [place] Comment on above: Performed By: #### C BC #### [facility] [address] [place] [address] Dr. Manuel Sandhu IG # 0.04 10e3/ul Critically high 0.00-0.03 [facility] Comment on above: Performed By: #### C BC #### [facility] [address] [place] [address] Dr. Manuel Sandhu IG % 0.3 % Normal 0.0-0.5 [facility] [place] Comment on above: Performed By: #### C BC #### [facility] [address] [place] [address] Dr. Manuel Sandhu LYMPH # 2.8 103/ul Normal 1.2-3.8 [facility] [place] Comment on above: Performed By: #### C BC #### [facility] [address] [place] [address] Dr. Manuel Sandhu Lymphocytes/100 WBC (Bld) 23.0 % Normal 20.5-60.0 [facility] [place] Comment on above: Performed By: #### C BC #### [facility] [address] [place] [address] Dr. Manuel Sandhu MANUAL DIFF REQ NO Normal [facility] Comment on above: Performed By: #### C BC #### [facility] [address] [place] [address] Dr. Manuel Sandhu MCH (RBC) [Entitic mass] 32.1 pg Normal 26.7-34.0 [facility] [place] Comment on above: Performed By: #### C BC #### [facility] [address] [place] [address] Dr. Manuel Sandhu MCHC (RBC) [Mass/Vol] 33.2 g/dL Normal 29.9-35.2 [facility] [place] Comment on above: Performed By: #### C BC #### [facility] [address] [place] [address] Dr. Manuel Sandhu MCV (RBC) [Entitic vol] 96.8 fL Normal 81.0-99.0 [facility] [place] Comment on above: Performed By: #### C BC #### [facility] [address] [place] [address] Dr. Manuel Sandhu MONO # 0.7 103/ul Normal 0.3-0.8 [facility] [place] Comment on above: Performed By: #### C BC #### [facility] [address] [address] [address] Manuel Sandhu Monocytes/100 WBC (Bld) 5.6 % Normal 1.7-12.0 [facility] [place] Comment on above: Performed By: #### C BC #### [facility] [address] [address] [address] Manuel Sandhu NEUT # 8.2 103/ul Critically high 1.4-6.5 [facility] Comment on above: Performed By: #### C BC #### [facility] [address] [address] [address] Manuel Sandhu Neutrophils/100 WBC (Bld) 67.7 % Normal 43.0-75.0 [facility] [place] Comment on above: Performed By: #### C BC #### [facility] [address] [place] [address] Dr. Manuel Sandhu Platelet mean volume (Bld) [Entitic vol] 11.2 fL Normal 9.5-13.5 [facility] [place] Comment on above: Performed By: #### C BC #### [facility] [address] [place] [address] Dr. Manuel Sandhu PLT 312 103/ul Normal 150-450 [facility] Comment on above: Performed By: #### C BC #### [facility] [address] [place] [address] Dr. Manuel Sandhu RBC 3.80 106/ul Critically low 4.20-5.40 [facility] Comment on above: Performed By: #### C BC #### [facility] [address] [place] [address] Dr. Manuel Sandhu WBC 12.1 103/ul Critically high 4.0-11.0 [facility] Comment on above: Performed By: #### C BC #### [facility] [address] [place] [address] Dr. Manuel Sandhu [facility]12 SARS-CoV-2 (COVID-19) RNA JOSÉ MIGUEL+probe Ql (Unsp spec) Not detected Normal NOT DETECTED The [facility] Comment on above: Result Comment: This test is not yet approved or cleared by the [place] FDA. When there are no FDA-approved or cleared tests available, and other criteria are met, FDA can make tests available under an emergency access mechanism called an Emergency Use Authorization (EUA). The EUA for this test is supported by the Radiographer of Health and Human Service's (HHS's) declaration [...] SARS-CoV-2. Performed By: #### C VDTBH #### [facility] [address] [place] [address] Dr. Manuel Sandhu DRUG SCREEN RAPID (URINE)on 01-30-2022 AMP Negative Normal NEGATIVE [facility] [place] Comment on above: Performed By: #### U MICRO, ERUR #### [facility] [address] [place] [address] Dr. Manuel Sandhu BAR Negative Normal NEGATIVE [facility] Comment on above: Performed By: #### U MICRO, ERUR #### [facility] [address] [place] [address] Dr. Manuel Sandhu BUP Negative Normal NEGATIVE [facility] [place] Comment on above: Performed By: #### U MICRO, ERUR #### [facility] [address] [address] [address] Manuel Sandhu BZO Negative Normal NEGATIVE [facility] [place] Comment on above: Performed By: #### U MICRO, ERUR #### [facility] [address] [place] [address] Dr. Manuel Sandhu WISAM Negative Normal NEGATIVE [facility] [place] Comment on above: Performed By: #### U MICRO, ERUR #### [facility] [address] [place] [address] Dr. Manuel Sandhu CUT-OFFS SEE BELOW Normal [facility] [place] Comment on above: Result Comment: AMP (Amphetamine): [...] Performed By: #### U MICRO, ERUR #### [facility] [address] [place] [address] Dr. Manuel Sandhu DRUG CUT HEADER DRUG CLASS TEST SYST EM CUT-OFF CONCENTRATIONS ARE FOLLOWS: Normal [facility] [place] Comment on above: Performed By: #### U MICRO, ERUR #### [facility] [address] [place] [address] Dr. Manuel Sandhu mAMP Negative Normal NEGATIVE [facility] [place] Comment on above: Performed By: #### U MICRO, ERUR #### [facility] [address] [place] [address] Dr. Manuel Sandhu MTD Negative Normal NEGATIVE [facility] [place] Comment on above: Performed By: #### U MICRO, ERUR #### [facility] [address] [place] [address] Dr. Manuel Sandhu OPI Negative Normal NEGATIVE [facility] [place] Comment on above: Performed By: #### U MICRO, ERUR #### [facility] [address] [place] [address] Dr. Manuel Sandhu OXY Negative Normal NEGATIVE [facility] [place] Comment on above: Performed By: #### U MICRO, ERUR #### [facility] [address] [place] [address] Dr. Manuel Sandhu PCP Negative Normal NEGATIVE [facility] [place] Comment on above: Performed By: #### U MICRO, ERUR #### [facility] [address] [address] [address] Manuel Sandhu PPX Negative Normal NEGATIVE [facility] [place] Comment on above: Performed By: #### U MICRO, ERUR #### [facility] [address] [address] [address] Manuel Sandhu TCA Negative Normal NEGATIVE [facility] Comment on above: Performed By: #### U MICRO, ERUR #### [facility] [address] [address] [address] Manuel Sandhu THC Negative Normal NEGATIVE [facility] [place] Comment on above: Performed By: #### U MICRO, ERUR #### [facility] [address] [address] [address] Manuel Sandhu ER URINE PROFILEon 2 Bilirubin Ql (U) Negative Normal NEGATIVE [facility] Comment on above: Performed By: #### U MICRO, ERUR #### [facility] [address] [address] [address] Manuel Sandhu Clarity (U) CLEAR Normal CLEAR [facility] [place] Comment on above: Performed By: #### U MICRO, ERUR #### [facility] [address] [address] [address] Manuel Sandhu Color (U) LT. YELLOW Normal YELLOW [facility] [place] Comment on above: Performed By: #### U MICRO, ERUR #### [facility] [address] [address] [address] Manuel Sandhu ERUAHD A micrscopic examina tion will be performed if indicated. Normal [facility] Comment on above: Performed By: #### U MICRO, ERUR #### [facility] [address] [address] [address] Manuel Sandhu Glucose Ql (U) Negative Normal NEGATIVE [facility] Comment on above: Performed By: #### U MICRO, ERUR #### [facility] [address] [address] [address] Manuel Sandhu Hemoglobin Ql (U) Negative Normal NEGATIVE [facility] Comment on above: Performed By: #### U MICRO, ERUR #### [facility] [address] [address] [address] Manuel Sandhu Ketones Ql (U) Negative Normal NEGATIVE [facility] Comment on above: Performed By: #### U MICRO, ERUR #### [facility] [address] [place] [address] Dr. Manuel Sandhu LEUKOCYTES Negative Normal NEGATIVE [facility] Comment on above: Performed By: #### U MICRO, ERUR #### [facility] [address] [place] [address] Dr. Manuel Sandhu Nitrite Ql (U) Negative Normal NEGATIVE [facility] Comment on above: Performed By: #### U MICRO, ERUR #### [facility] [address] [place] [address] Dr. Manuel Sandhu pH (U) 5.5 [pH] Normal 5-9 [facility] [place] Comment on above: Performed By: #### U MICRO, ERUR #### [facility] [address] [place] [address] Dr. Manuel Sandhu SPEC GRAVITY <=1.005 Abnormal 1.005-<=1.02 5 [facility] [place] Comment on above: Performed By: #### U MICRO, ERUR #### [facility] [address] [place] [address] Dr. Manuel Sandhu UA PROTEIN Negative Normal NEGATIVE/ TRACE [facility] Comment on above: Performed By: #### U MICRO, ERUR #### [facility] [address] [address] [address] Manuel Sandhu UR MICRO IND NOT INDICATED Normal [facility] Comment on above: Performed By: #### U MICRO, ERUR #### [facility] [address] [place] [address] Dr. Manuel Sandhu Urobilinogen Qn (U) 0.2 {Lucila'U}/dL Normal 0.2 - 1. 0 [facility] [place] Comment on above: Performed By: #### U MICRO, ERUR #### [facility] [address] [place] [address] Dr. Manuel Sandhu ETHANOL (BLD ALC)on 01-31-20 22 ALC NOTE NOTE: 80 mg/dl is e legal limit for a blood alcohol level Normal [facility] [place] Comment on above: Performed By: #### I NFLUAB #### [facility] [address] [place] [address] Dr. Manuel Sandhu Ethanol [Mass/Vol] 47 mg/dL Normal [facility] Comment on above: Performed By: #### I NFLUAB #### [facility] [address] [address] [address] Manuel Sandhu PREG HCG QUALon 01-30-2022 , QUAL Negative Normal NEGATIVE [facility] Comment on above: Performed By: #### U MICRO, ERUR #### [facility] [address] [place] [address] Dr. Manuel Sandhu PROF 14(COMP METB)on 022 Albumin [Mass/Vol] 3.8 g/dL Normal 3.4-5.0 [facility] Comment on above: Performed By: #### I NFLUAB #### [facility] [address] [address] [address] Manuel Sandhu Albumin/Globulin [Mass ratio] 1.1 {ratio} Normal [facility] [place] Comment on above: Performed By: #### I NFLUAB #### [facility] [address] [place] [address] Dr. Manuel Sandhu ALP [Catalytic activity/Vol] 88 U/L Normal 46-116 [facility] Comment on above: Performed By: #### I NFLUAB #### [facility] [address] [address] [address] Manuel Sandhu ALT [Catalytic activity/Vol] 30 U/L Normal 14-59 [facility] [place] Comment on above: Performed By: #### I NFLUAB #### [facility] [address] [address] [address] Manuel Sandhu Anion gap [Moles/Vol] 17.3 mmol/L Normal Th e [facility] Comment on above: Performed By: #### I NFLUAB #### [facility] [address] [address] [address] Manuel Sandhu AST [Catalytic activity/Vol] 17 U/L Normal 15-37 [facility] Comment on above: Performed By: #### I NFLUAB #### [facility] [address] [address] [address] Manuel Sandhu Bilirubin [Mass/Vol] 0.2 mg/dL Normal 0.2-1.0 [facility] Comment on above: Performed By: #### I NFLUAB #### [facility] [address] [address] [address] Manuel Sandhu Calcium [Mass/Vol] 8.9 mg/dL Normal 8.5-10.1 [facility] Comment on above: Performed By: #### I NFLUAB #### [facility] [address] [place] [address] Dr. Manuel Sandhu Chloride [Moles/Vol] 109 mmol/L Critically high 98-107 [facility] Comment on above: Performed By: #### I NFLUAB #### [facility] [address] [place] [address] Dr. Manuel Sandhu CO2 [Moles/Vol] 20.2 mmol/L Critically low 21.0-32.0 [facility] Comment on above: Performed By: #### I NFLUAB #### [facility] [address] [place] [address] Dr. Manuel Sandhu Creatinine [Mass/Vol] 0.69 mg/dL Normal 0.55-1.02 [facility] [place] Comment on above: Performed By: #### I NFLUAB #### [facility] [address] [place] [address] Dr. Manuel Sandhu EGFR-AF MARSHALLESE >60 Normal >=60 [facility] Comment on above: Performed By: #### I NFLUAB #### [facility] [address] [place] [address] Dr. Manuel Sandhu EGFR-NON AF MARSHALLESE >60 Normal >=60 [facility] Comment on above: Performed By: #### I NFLUAB #### [facility] [address] [address] [address] Manuel Sandhu Globulin (S) [Mass/Vol] 3.6 g/dL Normal [facility] Comment on above: Performed By: #### I NFLUAB #### [facility] [address] [place] [address] Dr. Manuel Sandhu Glucose [Mass/Vol] 79 mg/dL Normal 74-106 [facility] Comment on above: Performed By: #### I NFLUAB #### [facility] [address] [address] [address] Manuel Sandhu Potassium [Moles/Vol] 3.5 mmol/L Normal 3.5-5.1 [facility] Comment on above: Performed By: #### I NFLUAB #### [facility] [address] [place] [address] Dr. Manuel Sandhu Protein [Mass/Vol] 7.4 g/dL Normal 6.4-8.2 [facility] Comment on above: Performed By: #### I NFLUAB #### [facility] [address] [place] [address] Dr. Manuel Sandhu Sodium [Moles/Vol] 143 mmol/L Normal 136-145 [facility] Comment on above: Performed By: #### I NFLUAB #### [facility] [address] [place] [address] Dr. Manuel Sandhu Urea nitrogen [Mass/Vol] 18.0 mg/dL Normal 7.0-18.0 [facility] Comment on above: Performed By: #### I NFLUAB #### [facility] [address] [place] [address] Dr. Manuel Sandhu Urea nitrogen/Creatinine [Mass ratio] 26.1 mg/mg Normal [facility] Comment on above: Performed By: #### I NFLUAB #### [facility] [address] [place] [address] Dr. Manuel Sandhu AMYLASEon 11-16-2021 Amylase [Catalytic activity/Vol] 60 U/L Normal 31-110 [facility] Comment on above: Performed By: #### C MP, JENNIE, LIPA #### [facility] [address] [place] [address] Dr. Manuel Sandhu CBC AUTO DIFFon 11-16-2021 BASO # 0.1 103/ul Normal 0.0-0.1 [facility] [place] Comment on above: Performed By: #### C MP, JENNIE, LIPA #### [facility] [address] [place] [address] Dr. Manuel Sandhu Basophils/100 WBC (Bld) 0.5 % Normal 0.2-2.0 [facility] Comment on above: Performed By: #### C MP, JENNIE, LIPA #### [facility] [address] [place] [address] Dr. Manuel Sandhu EO # 0.3 103/ul Normal 0.0-0.7 [facility] Comment on above: Performed By: #### C MP JENNIE, LIPA #### [facility] [address] [place] [address] Dr. Manuel Sandhu Eosinophils/100 WBC (Bld) 3.1 % Normal 0.9-7.0 [facility] [place] Comment on above: Performed By: #### C CELINA JENNIE, LIPA #### [facility] [address] [place] [address] Dr. Manuel Sandhu Erythrocyte distribution width (RBC) [Ratio] 13.4 % Normal 11.0-15.0 [facility] [place] Comment on above: Performed By: #### C CELINA JENNIE, LIPA #### [facility] [address] [place] [address] Dr. Manuel Sandhu Hematocrit (Bld) [Volume fraction] 39.0 % Normal 36.0-48.0 [facility] [place] Comment on above: Performed By: #### C MP JENNIE, LIPA #### [facility] [address] [place] [address] Dr. Manuel Sandhu Hemoglobin (Bld) [Mass/Vol] 12.8 g/dL Normal 12.0-16.0 [facility] [place] Comment on above: Performed By: #### C MP JENNIE, LIPA #### [facility] [address] [place] [address] Dr. Manuel Sandhu IG # 0.03 10e3/ul Normal 0.00-0.03 [facility] Comment on above: Performed By: #### C JENNIE PATRICK LIPA #### [facility] [address] [address] [address] Manuel Sandhu IG % 0.3 % Normal 0.0-0.5 [facility] Comment on above: Performed By: #### C JENNIE PATRICK LIPA #### [facility] [address] [place] [address] Dr. Manuel Sandhu LYMPH # 2.8 103/ul Normal 1.2-3.8 [facility] Comment on above: Performed By: #### C JENNIE PATRICK LIPA #### [facility] [address] [place] [address] Dr. Manuel Sandhu Lymphocytes/100 WBC (Bld) 29.9 % Normal 20.5-60.0 [facility] Comment on above: Performed By: #### C JENNIE PATRICK LIPA #### [facility] [address] [place] [address] Dr. Manuel Sandhu MANUAL DIFF REQ NO Normal [facility] Comment on above: Performed By: #### C JENNIE PATRICK LIPA #### [facility] [address] [place] [address] Dr. Manuel Sandhu MCH (RBC) [Entitic mass] 32.2 pg Normal 26.7-34.0 [facility] Comment on above: Performed By: #### C JENNIE PATRICK LIPA #### [facility] [address] [place] [address] Dr. Manuel Sandhu MCHC (RBC) [Mass/Vol] 32.8 g/dL Normal 29.9-35.2 [facility] Comment on above: Performed By: #### C JENNIE PATRICK LIPA #### [facility] [address] [place] [address] Dr. Manuel Sandhu MCV (RBC) [Entitic vol] 98.0 fL Normal 81.0-99.0 [facility] Comment on above: Performed By: #### C MP, JENNIE, LIPA #### [facility] [address] [place] [address] Dr. Manuel Sandhu MONO # 0.7 103/ul Normal 0.3-0.8 [facility] Comment on above: Performed By: #### C MP, JENNIE, LIPA #### [facility] [address] [place] [address] Dr. Manuel Sandhu Monocytes/100 WBC (Bld) 7.7 % Normal 1.7-12.0 [facility] Comment on above: Performed By: #### C MP, JENNIE, LIPA #### [facility] [address] [place] [address] Dr. Manuel Sandhu NEUT # 5.5 103/ul Normal 1.4-6.5 [facility] Comment on above: Performed By: #### C MP, JENNIE, LIPA #### [facility] [address] [place] [address] Dr. Manuel Sandhu Neutrophils/100 WBC (Bld) 58.5 % Normal 43.0-75.0 [facility] Comment on above: Performed By: #### C MP JENNIE, LIPA #### [facility] [address] [place] [address] Dr. Manuel Sandhu Platelet mean volume (Bld) [Entitic vol] 11.7 fL Normal 9.5-13.5 [facility] Comment on above: Performed By: #### C MP, JENNIE, LIPA #### [facility] [address] [place] [address] Dr. Manuel Sandhu PLT 301 103/ul Normal 150-450 [facility] Comment on above: Performed By: #### C MP, JENNIE, LIPA #### [facility] [address] [place] [place] [address] Dr. Manuel Sandhu RBC 3.98 106/ul Critically low 4.20-5.40 [facility] Comment on above: Performed By: #### C MP, JENNIE, LIPA #### [facility] [address] [place] [address] Dr. Manuel Sandhu WBC 9.3 103/ul Normal 4.0-11.0 The [facility] Comment on above: Performed By: #### C JENNIE PATRICK LIPA #### [facility] [address] [address] [address] ABD/PELVIS WO CONon [...] HARMONY HARRELL Date: 2021-11-16 19:55 Normal The [facility] ER URINE PROFILEon 2 Bilirubin Ql (U) Negative Normal NEGATIVE [facility] Comment on above: Performed By: #### C CELINA JENNIE, LIPA #### [facility] [address] [place] [address] Dr. Manuel Sandhu Clarity (U) CLEAR Normal CLEAR [facility] Comment on above: Performed By: #### C CELINA JENNIE, LIPA #### [facility] [address] [place] [address] Dr. Manuel Sandhu Color (U) LT. YELLOW Normal YELLOW [facility] Comment on above: Performed By: #### C CELINA JENNIE, LIPA #### [facility] [address] [place] [address] Dr. Manuel Sandhu ERUAHD A micrscopic examina tion will be performed if indicated. Normal The [facility] Comment on above: Performed By: #### C MP, JENNIE, LIPA #### [facility] [address] [place] [address] Dr. Manuel Sandhu Glucose Ql (U) Negative Normal NEGATIVE [facility] Comment on above: Performed By: #### C MP, JENNIE, LIPA #### [facility] [address] [place] [address] Dr. Manuel Sandhu Hemoglobin Ql (U) Negative Normal NEGATIVE The [facility] Comment on above: Performed By: #### C MP JENNIE, LIPA #### [facility] [address] [place] [address] Dr. Manuel Sandhu Ketones Ql (U) Negative Normal NEGATIVE [facility] Comment on above: Performed By: #### C MP, JENNIE, LIPA #### [facility] [address] [place] [address] Dr. Manuel Sandhu LEUKOCYTES Negative Normal NEGATIVE [facility] Comment on above: Performed By: #### C MP, JENNIE, LIPA #### [facility] [address] [place] [address] Dr. Manuel Sandhu Nitrite Ql (U) Negative Normal NEGATIVE [facility] Comment on above: Performed By: #### C MP, JENNIE, LIPA #### [facility] [address] [place] [address] Dr. Manuel Sandhu pH (U) 7.0 [pH] Normal 5-9 [facility] Comment on above: Performed By: #### C MP JENNIE, LIPA #### [facility] [address] [place] [address] Dr. Manuel Sandhu SPEC GRAVITY <=1.005 Abnormal 1.005-<=1.02 5 [facility] Comment on above: Performed By: #### C MP, JENNIE, LIPA #### [facility] [address] [place] [address] Dr. Manuel Sandhu UA PROTEIN Negative Normal NEGATIVE/ TRACE [facility] Comment on above: Performed By: #### C CELINA JENNIE, LIPA #### [facility] [address] [place] [address] Dr. Manuel Sandhu UR MICRO IND NOT INDICATED Normal [facility] Comment on above: Performed By: #### C MP, JENNIE, LIPA #### [facility] [address] [place] [address] Dr. Manuel Sandhu Urobilinogen Qn (U) 0.2 {Lucila'U}/dL Normal 0.2 - 1. 0 [facility] Comment on above: Performed By: #### C MP, JENNIE, LIPA #### [facility] [address] [place] [address] Dr. Manuel Sandhu LIPASEon 11-16-2021 Lipase [Catalytic activity/Vol] 78.0 U/L Normal 23.0-300.0 [facility] Comment on above: Performed By: #### C CELINA JENNIE, LIPA #### [facility] [address] [place] [address] Dr. Manuel Sandhu URon 11-16-2021 , QUAL Negative Normal NEGATIVE [facility] Comment on above: Performed By: #### C MP, JENNIE, LIPA #### [facility] [address] [place] [address] Dr. Manuel Sandhu PROF 14(COMP METB)on 022 Albumin [Mass/Vol] 4.1 g/dL Normal 3.5-5.0 [facility] Comment on above: Performed By: #### C CELINA JENNIE, LIPA #### [facility] [address] [place] [address] Dr. Manuel Sandhu Albumin/Globulin [Mass ratio] 1.1 {ratio} Normal [facility] Comment on above: Performed By: #### C MP, JENNIE, LIPA #### [facility] [address] [place] [address] Dr. Manuel Sandhu ALP [Catalytic activity/Vol] 102 U/L Normal 38-126 [facility] Comment on above: Performed By: #### C MP JENNIE, LIPA #### [facility] [address] [place] [address] Dr. Manuel Sandhu ALT [Catalytic activity/Vol] 39 U/L Normal 9-52 [facility] Comment on above: Performed By: #### C MP, JENNIE, LIPA #### [facility] [address] [place] [address] Dr. Manuel Sandhu Anion gap [Moles/Vol] 11.5 mmol/L Normal [facility] Comment on above: Performed By: #### C MP, JENNIE, LIPA #### [facility] [address] [place] [address] Dr. Manuel Sandhu AST [Catalytic activity/Vol] 28 U/L Normal 14-36 [facility] Comment on above: Performed By: #### C MP, JENNIE, LIPA #### [facility] [address] [address] [address] Manuel Sandhu Bilirubin [Mass/Vol] 0.2 mg/dL Normal 0.2-1.3 [facility] Comment on above: Performed By: #### C MP, JENNIE, LIPA #### [facility] [address] [address] [address] Manuel Sandhu Calcium [Mass/Vol] 9.1 mg/dL Normal 8.4-10.2 [facility] Comment on above: Performed By: #### C MP, JENNIE, LIPA #### [facility] [address] [place] [address] Dr. Manuel Sandhu Chloride [Moles/Vol] 105 mmol/L Normal 98-107 [facility] Comment on above: Performed By: #### C MP, JENNIE, LIPA #### [facility] [address] [place] [address] Dr. Manuel Sandhu CO2 [Moles/Vol] 25.0 mmol/L Normal 22.0-30.0 [facility] Comment on above: Performed By: #### C MP, JENNIE, LIPA #### [facility] [address] [place] [address] Dr. Manuel Sandhu Creatinine [Mass/Vol] 0.77 mg/dL Normal 0.52-1.04 [facility] Comment on above: Performed By: #### C MP, JENNIE, LIPA #### [facility] [address] [place] [address] Dr. Manuel Sandhu EGFR-AF MARSHALLESE >60 Normal >=60 [facility] Comment on above: Performed By: #### C MP, JENNIE, LIPA #### [facility] [address] [place] [address] Dr. Manuel Sandhu EGFR-NON AF MARSHALLESE >60 Normal >=60 [facility] Comment on above: Performed By: #### C MP, JENNIE, LIPA #### [facility] [address] [place] [address] Dr. Manuel Sandhu Globulin (S) [Mass/Vol] 3.8 g/dL Normal [facility] Comment on above: Performed By: #### C JENNIE PATRICK, LIPA #### [facility] [address] [address] [address] Manuel Sandhu Glucose [Mass/Vol] 85 mg/dL Normal 74-106 [facility] Comment on above: Performed By: #### C JENNIE PATRICK, LIPA #### [facility] [address] [address] [address] Manuel Sandhu Potassium [Moles/Vol] 3.5 mmol/L Normal 3.4-5.0 [facility] Comment on above: Performed By: #### C JENNIE PATRICK, LIPA #### [facility] [address] [address] [address] Manuel Sandhu Protein [Mass/Vol] 7.9 g/dL Normal 6.1-8.2 [facility] Comment on above: Performed By: #### C JENNIE PATRICK LIPA #### [facility] [address] [address] [address] Manuel Sandhu Sodium [Moles/Vol] 138 mmol/L Normal 137-145 [facility] Comment on above: Performed By: #### C JENNIE PATRICK LIPA #### [facility] [address] [address] [address] Manuel Sandhu Urea nitrogen [Mass/Vol] 18.0 mg/dL Critically high 7.0-17.0 [facility] Comment on above: Performed By: #### C JENNIE PATRICK LIPA #### [facility] [address] [address] [address] Manuel Sandhu Urea nitrogen/Creatinine [Mass ratio] 23.4 mg/mg Normal [facility] Comment on above: Performed By: #### C JENNIE PATRICK LIPA #### [facility] [address] [place] [address] ABDOMEN PELVIS W [...] in the pelvis, which could be physiologic. [employer] Phone: EXAMINATION: CT OF T HE ABDOMEN [...] for the patient's age. No pelvic lymphadenopathy. Peritoneum/Retroperitone um: Abdominal aorta is normal in caliber. No retroperitoneal lymphadenopathy. Bones/Soft Tissues: There is mild stranding in the midline and left upper abdominal wall subcutaneous fat. No fluid collection or gas in the subcutaneous fat. No acute or suspicious osseous abnormality. 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 [employer] Phone: Dario, [employer] Incoming Radiant Results From [employer] - 02/04/2021 4:32 PM EDT EXAMINATION: CT [...] for the patient's age. No pelvic lymphadenopathy. Peritoneum/Retroperitone um: Abdominal aorta is normal in caliber. No [...] in the pelvis, which could be physiologic. [employer] Phone: [employer] Phone: Basic Metabolic Panel w/ Ref brannon to MGOrdered By: Ruiz Joel on 02-01-2021 Anion gap [Moles/Vol] 15 mmol/L 9 - 17 mmol/L [employer] Phone: Calcium [Mass/Vol] 8.5 mg/dL Low 8.6 - 10. 4 mg/dL [employer] Phone: Chloride [Moles/Vol] 107 mmol/L 98 - 10 7 mmol/L [employer] Phone: CO2 [Moles/Vol] 16 mmol/L Low 20 - 31 mmol/L [employer] Phone: Creatinine [Mass/Vol] 0.36 mg/dL Low 0.50 - 0.90 mg/dL [employer] Phone: GFR >60 >60 mL/min [employer] Phone: GFR Non- >60 >60 mL/min [employer] Phone: GFR/1.73 sq M.predicted MDRD (S/P/Bld) [Vol rate/Area] [employer] Phone: Comment on above: Average GFR for 30-3 9 years old: 107 mL/min/1.73sq m Chronic Kidney Disease: <60 mL/min/1.73sq m Kidney failure: <15 mL/min/1.73sq m eGFR calculated using average adult body mass. Additional eGFR calculator available at: http://www.[employer]/multiple_crcl_2012.htm GFR/1.73 sq M.predicted MDRD (S/P/Bld) [Vol rate/Area] NOT REPORTED [employer] Phone: Glucose [Mass/Vol] 79 mg/dL 70 - 99 mg/dL [employer] Phone: Interpretation and review of laboratory results Abnormal [employer] Phone: Potassium [Moles/Vol] 3.7 mmol/L 3.7 - 5.3 mmol/L [employer] Phone: Sodium [Moles/Vol] 138 mmol/L 135 - 144 mmol/L [employer] Phone: Urea nitrogen (BldV) [Mass/Vol] 2 mg/dL Low 6 - 20 mg/dL [employer] Phone: Urea nitrogen/Creatinine (Bld) [Mass ratio] NOT REPORTED [employer] Phone: [employer] Phone: CBC WITH AUTO DIFFERENTIALOr dered By: Ruiz Joel on 02-01-2021 [employer] # 0.28 [employer] [facility] Work Phone: Absolute Immature Granulocyte 0.06 [employer] Work Phone: Absolute Lymph # 1.62 W[employer]ley He [facility] Work Phone: Absolute Sanders # 1.46 [facility] Work Phone: Basophils (Bld) [#/Vol] 0.04 10*3/uL [employer] Work Phone: Basophils/100 WBC (Bld) 0 % 0 - 2 % [employer] Phone: Differential Type NOT REPORTED [employer] Phone: Eosinophils/100 WBC (Bld) 3 % 1 - 4 % [employer] Work Phone: Hematocrit (Bld) [Volume fraction] 33.7 % Low 36.3 - 47.1 % [employer] Work Phone: Hemoglobin.gastrointe stinal spec 1 Ql (Stl) 10.3 g/dL Low 11.9 - 15.1 g/dL [employer] Phone: Immature granulocytes/100 WBC (Bld) 1 % High 0 [employer] Work Phone: Interpretation and review of laboratory results Abnormal [employer] Phone: Lymphocytes/100 WBC (Bld) 14 % Low 24 - 43 % [employer] Phone: MCH (RBC) [Entitic mass] 29.9 pg 25.2 - 33.5 pg [employer] Phone: MCHC (RBC) [Mass/Vol] 30.6 g/dL 28.4 - 34.8 g/dL [employer] Phone: MCV (RBC) [Entitic vol] 98.0 fL 82.6 - 102.9 fL [employer] Phone: Monocytes/100 WBC (Bld) 13 % High 3 - 12 % [employer] Phone: NRBC Automated 0.0 0.0 per 100 WBC [employer] Phone: Platelet distribution width (Bld) [Ratio] 13.4 % 11.8 - 14.4 % [employer] Phone: Platelet Estimate NOT REPORTED [employer] Work Phone: Platelet mean volume (Bld) [Entitic vol] 11.6 fL 8.1 - 13.5 fL [employer] Work Phone: Platelets (Bld) [#/Vol] 392 10*3/uL [employer] Phone: RBC (Bld) [#/Vol] 3.44 10*6/uL Low 3.95 - 5.1 1 m/uL [employer] Work Phone: RBC (Bld) [#/Vol] NOT REPORTED [employer] Phone: Segmented neutrophils/100 WBC (Bld) 69 % High 36 - 65 % [employer] Phone: Segs Absolute 7.88 [employer] Work Phone: WBC (Bld) [#/Vol] 11.3 10*3/uL [employer] Work Phone: WBC (Bld) [#/Vol] NOT REPORTED [employer] Phone: [employer] Work Phone: Basic Metabolic Panel w/ Ref brannon to MGOrdered By: Nicolasa Le on 01-31-2021 Anion gap [Moles/Vol] 17 mmol/L 9 - 17 mmol/L [employer] Phone: Calcium [Mass/Vol] 8.7 mg/dL 8.6 - 10. 4 mg/dL [employer] Phone: Chloride [Moles/Vol] 105 mmol/L 98 - 10 7 mmol/L [employer] Phone: CO2 [Moles/Vol] 15 mmol/L Low 20 - 31 mmol/L [employer] Phone: Creatinine [Mass/Vol] 0.36 mg/dL Low 0.50 - 0.90 mg/dL [employer] Phone: GFR >60 >60 mL/min [employer] Phone: GFR Non- >60 >60 mL/min [employer] Phone: GFR/1.73 sq M.predicted MDRD (S/P/Bld) [Vol rate/Area] [employer] Phone: Comment on above: Average GFR for 30-3 9 years old: 107 mL/min/1.73sq m Chronic Kidney Disease: <60 mL/min/1.73sq m Kidney failure: <15 mL/min/1.73sq m eGFR calculated using average adult body mass. Additional eGFR calculator available at: http://www.[employer]/multiple_crcl_2012.htm GFR/1.73 sq M.predicted MDRD (S/P/Bld) [Vol rate/Area] NOT REPORTED [employer] Phone: Glucose [Mass/Vol] 78 mg/dL 70 - 99 mg/dL [employer] Phone: Interpretation and review of laboratory results Abnormal [employer] Phone: Potassium [Moles/Vol] 3.8 mmol/L 3.7 - 5.3 mmol/L [employer] Phone: Sodium [Moles/Vol] 137 mmol/L 135 - 144 mmol/L [employer] Phone: Urea nitrogen (BldV) [Mass/Vol] 3 mg/dL Low 6 - 20 mg/dL [employer] Phone: Urea nitrogen/Creatinine (Bld) [Mass ratio] NOT REPORTED [employer] Phone: [employer] Phone: CBC auto differentialOrdered By: Nicolasa Le on 01-31-2021 [employer] # 0.30 [employer] Work Phone: Absolute Immature Granulocyte 0.15 [employer] Work Phone: Absolute Lymph # 2.10 yetu [facility] Work Phone: Absolute Sanders # 2.25 High [employer] [facility] Work Phone: Basophils (Bld) [#/Vol] 0.00 10*3/uL [employer] Work Phone: Basophils/100 WBC (Bld) 0 % 0 - 2 % [employer] Work Phone: Differential Type NOT REPORTED [employer] Work Phone: Eosinophils/100 WBC (Bld) 2 % 1 - 4 % [employer] Phone: Hematocrit (Bld) [Volume fraction] 35.7 % Low 36.3 - 47.1 % [employer] Phone: Hemoglobin.gastrointe stinal spec 1 Ql (Stl) 10.8 g/dL Low 11.9 - 15.1 g/dL [employer] Work Phone: Immature granulocytes/100 WBC (Bld) 1 % High 0 [employer] Work Phone: Interpretation and review of laboratory results Abnormal [employer] Phone: Lymphocytes/100 WBC (Bld) 14 % Low 24 - 43 % [employer] Work Phone: MCH (RBC) [Entitic mass] 29.9 pg 25.2 - 33.5 pg [employer] Work Phone: MCHC (RBC) [Mass/Vol] 30.3 g/dL 28.4 - 34.8 g/dL [employer] Phone: MCV (RBC) [Entitic vol] 98.9 fL 82.6 - 102.9 fL [employer] Phone: Monocytes/100 WBC (Bld) 15 % High 3 - 12 % [employer] Work Phone: Morphology Celso (Bld) [Interp] Normal [employer] Work Phone: NRBC Automated 0.0 0.0 per 100 WBC [employer] Work Phone: Platelet distribution width (Bld) [Ratio] 13.5 % 11.8 - 14.4 % [employer] Work Phone: Platelet Estimate NOT REPORTED [employer] Work Phone: Platelet mean volume (Bld) [Entitic vol] 11.6 fL 8.1 - 13.5 fL [employer] Work Phone: Platelets (Bld) [#/Vol] 375 10*3/uL [employer] Work Phone: RBC (Bld) [#/Vol] 3.61 10*6/uL Low 3.95 - 5.1 1 m/uL [employer] Work Phone: RBC (Bld) [#/Vol] NOT REPORTED [employer] Work Phone: Segmented neutrophils/100 WBC (Bld) 68 % High 36 - 65 % [employer] Work Phone: Segs Absolute 10.20 High [employer] h Work Phone: WBC (Bld) [#/Vol] 15.0 10*3/uL High [employer] Work Phone: WBC (Bld) [#/Vol] NOT REPORTED [employer] Work Phone: [employer] Work Phone: CBC Auto DifferentialOrdered By: David Nash on 01-30-2021 [employer] # 0.21 BMP [employer] Work Phone: Absolute Immature Granulocyte 0.04 [employer] Work Phone: Absolute Lymph # 1.88 [employer] He [facility] Work Phone: Absolute Sanders # 1.43 High [employer] lt Work Phone: Basophils (Bld) [#/Vol] 0.04 10*3/uL [employer] Phone: Basophils/100 WBC (Bld) 0 % 0 - 2 % [employer] Phone: Differential Type NOT REPORTED [employer] Phone: Eosinophils/100 WBC (Bld) 2 % 1 - 4 % [employer] Phone: Hematocrit (Bld) [Volume fraction] 36.2 % Low 36.3 - 47.1 % [employer] Phone: Hemoglobin.gastrointe stinal spec 1 Ql (Stl) 11.7 g/dL Low 11.9 - 15.1 g/dL [employer] Phone: Immature granulocytes/100 WBC (Bld) 0 % 0 [employer] Phone: Interpretation and review of laboratory results Abnormal [employer] Phone: Lymphocytes/100 WBC (Bld) 15 % Low 24 - 43 % [employer] Phone: MCH (RBC) [Entitic mass] 30.3 pg 25.2 - 33.5 pg [employer] Phone: MCHC (RBC) [Mass/Vol] 32.3 g/dL 28.4 - 34.8 g/dL [employer] Phone: MCV (RBC) [Entitic vol] 93.8 fL 82.6 - 102.9 fL [employer] Phone: Monocytes/100 WBC (Bld) 12 % 3 - 12 % [employer] Phone: NRBC Automated 0.0 0.0 per 100 WBC [employer] Phone: Platelet distribution width (Bld) [Ratio] 13.2 % 11.8 - 14.4 % [employer] Phone: Platelet Estimate NOT REPORTED [employer] Phone: Platelet mean volume (Bld) [Entitic vol] 11.6 fL 8.1 - 13.5 fL [employer] Phone: Platelets (Bld) [#/Vol] 414 10*3/uL [employer] Phone: RBC (Bld) [#/Vol] 3.86 10*6/uL Low 3.95 - 5.1 1 m/uL [employer] Phone: RBC (Bld) [#/Vol] NOT REPORTED [employer] Phone: Segmented neutrophils/100 WBC (Bld) 71 % High 36 - 65 % [employer] Work Phone: Segs Absolute 8.75 High [employer] Work Phone: WBC (Bld) [#/Vol] 12.4 10*3/uL High [employer] Work Phone: WBC (Bld) [#/Vol] NOT REPORTED [employer] Phone: [employer] Phone: CT ABDOMEN PELVIS W IV CONTR [...] anterolisthesis and marked decrease in disc height. [employer] Phone: EXAMINATION: CT OF T HE ABDOMEN [...] No urinary bladder wall thickening was noted. Peritoneum/Retroperitone um: No abdominal or pelvic lymphadenopathy were identified. Bones/Soft Tissues: Subcutaneous soft tissue inflammation was noted along the left anterolateral abdominal wall. Grade 1 anterolisthesis of L5 over S1 was noted secondary to bilateral pars interarticularis defects. Marked decrease in disc height was noted at the L5-S1 disc. [employer] Work Phone: Dario, [facility] Incoming Radiant Results From [employer] - 01/30/2021 12:20 PM EDT EXAMINATION: CT [...] No urinary bladder wall thickening was noted. Peritoneum/Retroperitone um: No abdominal or pelvic lymphadenopathy were identified. [...] anterolisthesis and marked decrease in disc height. [employer] Phone: [employer] Phone: Comprehensive Metabolic Pane l w/ Reflex to MGOrdered By: David Nash on 01-30-2021 Albumin [Mass/Vol] 3.6 g/dL 3.5 - 5.2 g/dL [employer] Phone: Albumin/Globulin [Mass ratio] 1.0 {ratio} [employer] Phone: ALP (Bld) [Catalytic activity/Vol] 107 U/L High 35 - 104 U/L [employer] Phone: ALT [Catalytic activity/Vol] 33 U/L 5 - 33 U/L [employer] Phone: Anion gap [Moles/Vol] 17 mmol/L 9 - 17 mmol/L [employer] Phone: AST [Catalytic activity/Vol] 26 U/L <32 [employer] Phone: Bilirubin [Mass/Vol] 0.25 mg/dL Low 0.3 - 1 .2 mg/dL [employer] Phone: Calcium [Mass/Vol] 9.5 mg/dL 8.6 - 10. 4 mg/dL [employer] Phone: Chloride [Moles/Vol] 104 mmol/L 98 - 10 7 mmol/L [employer] Phone: CO2 [Moles/Vol] 19 mmol/L Low 20 - 31 mmol/L [employer] Phone: Creatinine [Mass/Vol] 0.47 mg/dL Low 0.50 - 0.90 mg/dL [employer] Phone: Free PSA/Total PSA [Mass fraction] 7.3 g/dL 6.4 - 8.3 g/dL [employer] Phone: GFR >60 >60 mL/min [employer] Phone: GFR Non- >60 >60 mL/min [employer] Phone: Glucose [Mass/Vol] 79 mg/dL 70 - 99 mg/dL [employer] Phone: Interpretation and review of laboratory results Abnormal [employer] Phone: Potassium [Moles/Vol] 3.8 mmol/L 3.7 - 5.3 mmol/L [employer] Phone: Sodium [Moles/Vol] 140 mmol/L 135 - 144 mmol/L [employer] Phone: Urea nitrogen (BldV) [Mass/Vol] 5 mg/dL Low 6 - 20 mg/dL [employer] Phone: Urea nitrogen/Creatinine (Bld) [Mass ratio] 11 [employer] Phone: HCG Qualitative, SerumOrdere d By: Noreen Mckeon on 01-30-2021 hCG Qual Negative NEGATIVE [employer] Phone: Comment on above: Specimens with hCG l evels near the threshold of the test (25 mIU/mL) may give a negative or indeterminate result. In such cases, another test should be performed with a new specimen in 48-72 hours. If early is suspected clinically in this setting, correlation with quantitative serum b-hCG level is suggested. [employer] has confirmed the use of plasma for this test. This has not been cleared or approved by the U.S. Food and Drug Administration. The FDA has determined that such clearance is not necessary. [employer] Phone: Laboratory - Chemistry and C hemistry - challengeOrdered By: David Nash on 01-30-2021 GFR/1.73 sq M.predicted MDRD (S/P/Bld) [Vol rate/Area] [employer] Phone: Comment on above: Average GFR for 30-3 9 years old: 107 mL/min/1.73sq m Chronic Kidney Disease: <60 mL/min/1.73sq m Kidney failure: <15 mL/min/1.73sq m eGFR calculated using average adult body mass. Additional eGFR calculator available at: http://www.[employer]/multiple_crcl_2012.htm Stage 1: Some kidney damage normal GFR Stage 2: Mild kidney damage GFR 60-89 Stage 3: Moderate kidney damage GFR 30-59 Stage 4: Severe kidney damage GFR 15-29 Stage 5: Severe kidney damage GFR <15 ESRD - chronic treatment by dialysis or transplant Lactic AcidOrdered By: Beatriz Nash on 01-30-2021 Lactate [Moles/Vol] 0.6 mmol/L 0.5 - 2. 2 mmol/L [employer] Phone: [employer] Phone: LipaseOrdered By: David dalton on 01-30-2021 Lipase [Catalytic activity/Vol] 30 U/L 13 - 60 U/L [facility]: Microscopic UrinalysisOrdere d By: David Nash on 01-30-2021 - [employer] Work Phone: Amorphous, UA NOT REPORTED None [facility] Work Phone: Bacteria, UA TRACE Abnormal None [facility] Work Phone: Casts UA NOT REPORTED /LPF [facility] Work Phone: Crystals, UA NOT REPORTED None /HPF [facility] Work Phone: Epithelial Cells UA 2 TO 5 [facility] Work Phone: Interpretation and review of laboratory results Abnormal [facility] Work Phone: Mucus, UA NOT REPORTED None [facility] Work Phone: Other Observations UA NOT REPORTED NOT REQ. M [facility] Work Phone: RBC, UA 0 TO 2 [facility] Work Phone: Renal Epithelial, UA NOT REPORTED 0 /HPF [facility] Work Phone: Trichomonas, UA NOT REPORTED None [facility] Work Phone: WBC, UA 2 TO 5 [facility] Work Phone: Yeast, UA NOT REPORTED None [facility] Work Phone: [facility] Work Phone: No Panel InformationOrdered By: David Nash on 01-30-2021 [facility] Phone: Protime-INROrdered By: Linda Mckeon on 01-30-2021 INR Coag (Bld) [Relative time] 1.1 {INR} [facility] Work Phone: Comment on above: Therapeutic Range: Moderate Anticoagulant Intensity: INR = 2.0-3.0 High Anticoagulant Intensity: INR = 2.5-3.5 PT Coag (PPP) [Time] 11.4 s [facility] Work Phone: [facility] Work Phone: Urinalysis, reflex to micros copicOrdered By: David Nash on 01-30-2021 Bilirubin Urine SMALL Abnormal NEGATIVE [facility] Work Phone: Color, UA YELLOW YELLOW [facility] Work Phone: Glucose, Ur Negative NEGATIVE [facility] Work Phone: Interpretation and review of laboratory results Abnormal [facility] Work Phone: Ketones Ql (U) 4+ Abnormal NEGATIVE [facility] Work Phone: Leukocyte esterase Test strip Ql (U) Negative NEGATIVE [facility] Work Phone: Nitrite, Urine Negative NEGATIVE [facility] Work Phone: pH, UA 5.5 [facility] Work Phone: Protein, UA Negative NEGATIVE [facility] Work Phone: Specific [place], UA <1.005 Low [facility] Work Phone: Turbidity UA CLEAR CLEAR [facility] Work Phone: Urinalysis Comments NOT REPORTED [facility] Work Phone: Urine Hgb Negative NEGATIVE [facility] Work Phone: Urobilinogen, Urine Normal Normal [facility] Work Phone: [facility] Work Phone: Basic Metabolic PanelOrdered By: Gamaliel Harris on 01-08-2021 Anion gap [Moles/Vol] 11 mmol/L 9 - 17 mmol/L [facility] Work Phone: Calcium [Mass/Vol] 9.1 mg/dL 8.6 - 10. 4 mg/dL [employer] Phone: Chloride [Moles/Vol] 105 mmol/L 98 - 10 7 mmol/L [employer] Phone: CO2 [Moles/Vol] 23 mmol/L 20 - 31 mmol/L [employer] Phone: Creatinine [Mass/Vol] 0.57 mg/dL 0.50 - 0.90 mg/dL [employer] Phone: GFR >60 >60 mL/min [employer] Phone: GFR Non- >60 >60 mL/min [employer] Phone: GFR/1.73 sq M.predicted MDRD (S/P/Bld) [Vol rate/Area] [employer] Phone: Comment on above: Average GFR for 30-3 9 years old: 107 mL/min/1.73sq m Chronic Kidney Disease: <60 mL/min/1.73sq m Kidney failure: <15 mL/min/1.73sq m eGFR calculated using average adult body mass. Additional eGFR calculator available at: http://www.MobileMD/multiple_crcl_2012.htm GFR/1.73 sq M.predicted MDRD (S/P/Bld) [Vol rate/Area] NOT REPORTED [employer] Phone: Glucose [Mass/Vol] 106 mg/dL High 70 - 99 mg/dL [employer] Phone: Interpretation and review of laboratory results Abnormal [employer] Phone: Potassium [Moles/Vol] 3.7 mmol/L 3.7 - 5.3 mmol/L [employer] Phone: Sodium [Moles/Vol] 139 mmol/L 135 - 144 mmol/L [employer] Phone: Urea nitrogen (BldV) [Mass/Vol] 7 mg/dL 6 - 20 mg/dL [employer] Phone: Urea nitrogen/Creatinine (Bld) [Mass ratio] NOT REPORTED [employer] Phone: CBCOrdered By: Gamaliel castillo on 01-08-2021 Hematocrit (Bld) [Volume fraction] 38.0 % 36.3 - 47.1 % [employer] Phone: Hemoglobin.gastrointe stinal spec 1 Ql (Stl) 12.2 g/dL 11.9 - 15.1 g/dL [employer] Phone: Interpretation and review of laboratory results Abnormal [employer] Phone: MCH (RBC) [Entitic mass] 30.4 pg 25.2 - 33.5 pg [employer] Phone: MCHC (RBC) [Mass/Vol] 32.1 g/dL 28.4 - 34.8 g/dL [employer] Phone: MCV (RBC) [Entitic vol] 94.8 fL 82.6 - 102.9 fL [employer] Phone: NRBC Automated 0.0 0.0 per 100 WBC [employer] Phone: Platelet distribution width (Bld) [Ratio] 13.5 % 11.8 - 14.4 % [employer] Phone: Platelet mean volume (Bld) [Entitic vol] 11.4 fL 8.1 - 13.5 fL [employer] Phone: Platelets (Bld) [#/Vol] 304 10*3/uL [employer] Phone: RBC (Bld) [#/Vol] 4.01 10*6/uL 3.95 - 5.1 1 m/uL [employer] Phone: WBC (Bld) [#/Vol] 18.0 10*3/uL High [employer] Phone: FL ESOPHAGRAMOrdered By: Yadi Harris on 01-08-2021 No evidence of postoperative leak. [employer] Phone: EXAMINATION: SINGLE CONTRAST ESOPHAGRAM 01/08/2021 HISTORY: [...] KUB/radiographs to assess progression as clinically warranted. [employer] Phone: Dario, pn Incoming Radiant Results From [employer] - 01/08/2021 12:29 PM EDT EXAMINATION: SINGLE [...] warranted. IMPRESSION: No evidence of postoperative leak. [employer] Phone: Basic Metabolic PanelOrdered By: Gamaliel Harris on 01-07-2021 Anion gap [Moles/Vol] 10 mmol/L 9 - 17 mmol/L [employer] Phone: Calcium [Mass/Vol] 8.8 mg/dL 8.6 - 10. 4 mg/dL [employer] Phone: Chloride [Moles/Vol] 105 mmol/L 98 - 10 7 mmol/L [employer] Phone: CO2 [Moles/Vol] 20 mmol/L 20 - 31 mmol/L [employer] Phone: Creatinine [Mass/Vol] 0.68 mg/dL 0.50 - 0.90 mg/dL [employer] Phone: GFR >60 >60 mL/min [employer] Phone: GFR Non- >60 >60 mL/min [employer] Phone: GFR/1.73 sq M.predicted MDRD (S/P/Bld) [Vol rate/Area] [employer] Phone: Comment on above: Average GFR for 30-3 9 years old: 107 mL/min/1.73sq m Chronic Kidney Disease: <60 mL/min/1.73sq m Kidney failure: <15 mL/min/1.73sq m eGFR calculated using average adult body mass. Additional eGFR calculator available at: http://www.MobileMD/multiple_crcl_2012.htm GFR/1.73 sq M.predicted MDRD (S/P/Bld) [Vol rate/Area] NOT REPORTED [employer] Phone: Glucose [Mass/Vol] 215 mg/dL High 70 - 99 mg/dL [employer] Phone: Interpretation and review of laboratory results Abnormal [employer] Phone: Potassium [Moles/Vol] 4.2 mmol/L 3.7 - 5.3 mmol/L [employer] Phone: Sodium [Moles/Vol] 135 mmol/L 135 - 144 mmol/L [employer] Phone: Urea nitrogen (BldV) [Mass/Vol] 14 mg/dL 6 - 20 mg/dL [employer] Phone: Urea nitrogen/Creatinine (Bld) [Mass ratio] NOT REPORTED [employer] Phone: CBC without DiffOrdered By: Gamaliel Harris on 01-07-2021 Hematocrit (Bld) [Volume fraction] 38.3 % 36.3 - 47.1 % [employer] Phone: Hemoglobin.gastrointe stinal spec 1 Ql (Stl) 12.5 g/dL 11.9 - 15.1 g/dL [employer] Phone: Interpretation and review of laboratory results Abnormal [employer] Phone: MCH (RBC) [Entitic mass] 30.9 pg 25.2 - 33.5 pg [employer] Phone: MCHC (RBC) [Mass/Vol] 32.6 g/dL 28.4 - 34.8 g/dL [employer] Phone: MCV (RBC) [Entitic vol] 94.8 fL 82.6 - 102.9 fL [employer] Phone: NRBC Automated 0.0 0.0 per 100 WBC [employer] Phone: Platelet distribution width (Bld) [Ratio] 13.4 % 11.8 - 14.4 % [employer] Phone: Platelet mean volume (Bld) [Entitic vol] 11.2 fL 8.1 - 13.5 fL [employer] Phone: Platelets (Bld) [#/Vol] 373 10*3/uL [employer] Phone: RBC (Bld) [#/Vol] 4.04 10*6/uL 3.95 - 5.1 1 m/uL [employer] Phone: WBC (Bld) [#/Vol] 24.9 10*3/uL High [employer] Phone: POCT urine pregnancyOrdered By: Gamaliel Harris on 01-07-2021 Beta HCG ( test) Ql (U) Negative NEGATIVE [employer] Phone: Comment on above: Specimens with hCG l evels near the threshold of the test (25 mIU/mL) may give a negative or indeterminate result. In such cases, another test should be performed with a new specimen in 48-72 hours. If early is suspected clinically in this setting, correlation with quantitative serum b-hCG level is suggested. [id number] 01-04-2021 SARS-CoV-2 (COVID-19) RNA JOSÉ MIGUEL+probe Ql (Unsp spec) Normal [facility] Comment on above: Performed By: #### C OVID #### [facility] [address] [place], [place] [id number] Data Center Project Manager: Wei Reyna MD [id number] [place], [place] [id number] Data Center Project Manager: Harpal Adair MD SARS-CoV-2 (COVID-19) RNA JOSÉ MIGUEL+probe Ql (Unsp spec) Not detected Normal NOTDET [facility] Comment on above: Result Comment: The specimen is NEGATIVE for SARS-CoV-2, the novel coronavirus associated with COVID-19. A negative result does not rule out COVID-19. [employer] SARS-CoV-2 for use on the [employer] is a real-time RT-PCR test intended [...] this assay. Fact sheet for Healthcare Providers: https://www.fda.gov/media/283351/download Fact sheet for Patients: https://www.fda.gov/media/535873/download METHODOLOGY: RT-PCR Performed By: #### C OVID #### [facility] [address] [place], [place] [id number] Data Center Project Manager: Wei Reyna MD [facility] [address] [place], [place] [id number] Data Center Project Manager: Harpal Adair MD [id number] 01-03-2021 SARS-CoV-2 (COVID-19) RNA JOSÉ MIGUEL+probe Ql (Unsp spec) .NASOPHARYNGEAL SWAB Normal [facility] Comment on above: Performed By: #### C OVID #### [facility] [address] [place], [place] [address] Data Center Project Manager: Wei Reyna MD [facility] [address] [place], [place] [id number] Data Center Project Manager: Harpal Adair MD Nicotine, BloodOrdered By: Jose Harris on 12-26-2020 1-XO-[id number] <2 ng/mL [facility] Work Phone: Cotinine <2 ng/mL [facility] Work Phone: Nicotine <2 ng/mL [facility] Work Phone: Comment on above: (NOTE) Consistent [...] developed and its performance characteristics determined by [employer]. It has not been cleared or approved by the US Food and Drug Administration. This test was performed in a CLIA certified laboratory and is intended for clinical purposes. Performed By: [employer] [address] [place], [place] [id number] Schedule Analyst: Brissa Bonilla MD EKG 12 LeadOrdered By: Enmanuel Harris on 12-25-2020 Atrial Rate 70 BPM [employer] Phone: P Raymond 20 degrees [employer] Phone: P-R Interval 176 ms [employer] Phone: Q-T Interval 414 ms [employer] Phone: QRS Duration 88 ms [employer] Work Phone: QTc Calculation (Bazett) 447 ms [employer] Phone: R Raymond 7 degrees [employer] Phone: T Raymond 8 degrees [employer] Phone: Ventricular Rate 70 BPM [employer] Work Phone: Normal sinus rhythm Normal ECG No previous ECGs available [employer] Phone: Dario, [employer] Incoming E kg Results From [employer] - 12/25/2020 12:47 PM EDT Normal sinus rhythm Normal ECG No previous ECGs available [employer] Phone: APTTOrdered By: Gamaliel horvath on 12-24-2020 aPTT Coag (Bld) [Time] 23.1 s [employer] Phone: Comment on above: IV Heparin Therapy Range: 48.6-77.8 Basic Metabolic PanelOrdered By: Gamaliel Harris on 12-24-2020 Anion gap [Moles/Vol] 10 mmol/L 9 - 17 mmol/L [employer] Phone: Calcium [Mass/Vol] 9.4 mg/dL 8.6 - 10. 4 mg/dL [employer] Phone: Chloride [Moles/Vol] 106 mmol/L 98 - 10 7 mmol/L [employer] Phone: CO2 [Moles/Vol] 23 mmol/L 20 - 31 mmol/L [employer] Phone: Creatinine [Mass/Vol] 0.56 mg/dL 0.50 - 0.90 mg/dL [employer] Phone: GFR >60 >60 mL/min [employer] Phone: GFR Non- >60 >60 mL/min [employer] Phone: GFR/1.73 sq M.predicted MDRD (S/P/Bld) [Vol rate/Area] [employer] Phone: Comment on above: Average GFR for 30-3 9 years old: 107 mL/min/1.73sq m Chronic Kidney Disease: <60 mL/min/1.73sq m Kidney failure: <15 mL/min/1.73sq m eGFR calculated using average adult body mass. Additional eGFR calculator available at: http://www.MobileMD/multiple_crcl_2012.htm GFR/1.73 sq M.predicted MDRD (S/P/Bld) [Vol rate/Area] NOT REPORTED [employer] Phone: Glucose [Mass/Vol] 86 mg/dL 70 - 99 mg/dL [employer] Phone: Potassium [Moles/Vol] 3.8 mmol/L 3.7 - 5.3 mmol/L [employer] Phone: Sodium [Moles/Vol] 139 mmol/L 135 - 144 mmol/L [employer] Phone: Urea nitrogen (BldV) [Mass/Vol] 12 mg/dL 6 - 20 mg/dL [employer] Phone: Urea nitrogen/Creatinine (Bld) [Mass ratio] NOT REPORTED [employer] Phone: CBCOrdered By: Gamaliel castillo on 12-24-2020 Hematocrit (Bld) [Volume fraction] 41.2 % 36.3 - 47.1 % [employer] Phone: Hemoglobin.gastrointe stinal spec 1 Ql (Stl) 13.4 g/dL 11.9 - 15.1 g/dL [employer] Phone: MCH (RBC) [Entitic mass] 30.5 pg 25.2 - 33.5 pg [employer] Phone: MCHC (RBC) [Mass/Vol] 32.5 g/dL 28.4 - 34.8 g/dL [employer] Phone: MCV (RBC) [Entitic vol] 93.6 fL 82.6 - 102.9 fL [employer] Phone: NRBC Automated 0.0 0.0 per 100 WBC [employer] Phone: Platelet distribution width (Bld) [Ratio] 13.2 % 11.8 - 14.4 % [employer] Phone: Platelet mean volume (Bld) [Entitic vol] 10.7 fL 8.1 - 13.5 fL [employer] Phone: Platelets (Bld) [#/Vol] 391 10*3/uL [employer] Phone: RBC (Bld) [#/Vol] 4.40 10*6/uL 3.95 - 5.1 1 m/uL [employer] Phone: WBC (Bld) [#/Vol] 8.5 10*3/uL [employer] Phone: Protime-INROrdered By: Enmanuel Harris on 12-24-2020 INR Coag (Bld) [Relative time] 0.9 {INR} [employer] Phone: Comment on above: Therapeutic Range: Moderate Anticoagulant Intensity: INR = 2.0-3.0 High Anticoagulant Intensity: INR = 2.5-3.5 PT Coag (PPP) [Time] 10 s [employer] Phone: XR CHEST (2 VW)on 12-24-2020 No acute cardiopulmo nary findings [employer] Phone: EXAMINATION: TWO XRA Y VIEWS OF THE CHEST 12/24/2020 11:24 am COMPARISON: None. HISTORY: ORDERING SYSTEM PROVIDED HISTORY: preop gastric bypass [employer] TECHNOLOGIST PROVIDED HISTORY: preop gastric bypass [employer] Reason for Exam: no chest complaints FINDINGS: Normal cardiopericardial silhouette There are no significant mediastinal, pleural, parenchymal or osseous findings [employer] Phone: Dario, [employer] Incoming Radiant Results From [employer] - 12/24/2020 11:30 AM EDT EXAMINATION: TWO XRAY VIEWS OF THE CHEST 12/24/2020 11:24 am COMPARISON: None. HISTORY: ORDERING SYSTEM PROVIDED HISTORY: preop gastric bypass [employer] TECHNOLOGIST PROVIDED HISTORY: preop gastric bypass [employer] Reason for Exam: no chest complaints FINDINGS: Normal cardiopericardial silhouette There are no significant mediastinal, pleural, parenchymal or osseous findings IMPRESSION: No acute cardiopulmonary findings [employer] Phone: XR CHEST (2 VW)Ordered By: Jose Harris on 12-24-2020 No acute cardiopulmo nary findings [employer] Phone: EXAMINATION: TWO XRA Y VIEWS OF THE CHEST 12/24/2020 11:24 am COMPARISON: None. HISTORY: ORDERING SYSTEM PROVIDED HISTORY: preop gastric bypass [employer] TECHNOLOGIST PROVIDED HISTORY: preop gastric bypass [employer] Reason for Exam: no chest complaints FINDINGS: Normal cardiopericardial silhouette There are no significant mediastinal, pleural, parenchymal or osseous findings [employer] Phone: Dario, [employer] Incoming Radiant Results From [employer] - 12/24/2020 11:30 AM EDT EXAMINATION: TWO XRAY VIEWS OF THE CHEST 12/24/2020 11:24 am COMPARISON: None. HISTORY: ORDERING SYSTEM PROVIDED HISTORY: preop gastric bypass [employer] TECHNOLOGIST PROVIDED HISTORY: preop gastric bypass [employer] Reason for Exam: no chest complaints FINDINGS: Normal cardiopericardial silhouette There are no significant mediastinal, pleural, parenchymal or osseous findings IMPRESSION: No acute cardiopulmonary findings [employer] Phone: FL UGI W AIR CONTRASTon 10-15 Intermittent signifi cant spontaneous GE reflux. Otherwise unremarkable double-contrast upper GI and esophagram. [employer] Phone: EXAMINATION: DOUBLE CONTRAST UPPER GI SERIES [...] The duodenal bulb and sweep are normal. [employer] Phone: Dario, [facility] Incoming Radiant Results From [employer] - 11/01/2020 5:21 PM EST EXAMINATION: DOUBLE [...] Otherwise unremarkable double-contrast upper GI and esophagram. [employer] Phone: COVID-19on 09-25-2020 SARS-CoV-2 [place], [place] SARS-CoV-2 Not Detected Not Detected [place], [place] Comment on above: The specimen is NEGATIVE for SARS-CoV-2, the novel coronavirus associated with COVID-19. A negative result does not rule out COVID-19. [employer] SARS-CoV-2 for use on the [employer] is a real-time RT-PCR test intended [...] this assay. Fact sheet for Healthcare Providers: https://www.fda.gov/media/864167/download Fact sheet for Patients: https://www.fda.gov/media/078651/download METHODOLOGY: RT-PCR SARS-CoV-2, Rapid [place], [place] Source .NASOPHARYNGEAL SWAB [place], [place] Vital Signs Date Time Vital Sign Value Performing Clinician Facility 03-08-2024 15:02-0400 Diastolic blood pressure 78 mm[Hg] Alexis Shukla [facility] 03-08-2024 15:02-0400 Heart rate 65 /min [facility] 03-08-2024 15:02-0400 Mean blood pressure 89 mm[Hg] [facility] 03-08-2024 15:02-0400 SaO2% (BldA) [Mass fraction] 100 % [facility] 03-08-2024 15:02-0400 Systolic blood pressure 110 mm[Hg] Alexis Vazqeuz [facility] 03-08-2024 14:00-0400 SaO2% (BldA) [Mass fraction] 99 % Alexis Vazquez [facility] 03-08-2024 13:37-0400 Body temperature 98.42 [degF] Alexis Vazquez [facility] 03-08-2024 13:37-0400 Diastolic blood pressure 82 mm[Hg] Alexis Vazquez [facility] 03-08-2024 13:37-0400 Heart rate 70 /min Alexis Vazquez [facility] 03-08-2024 13:37-0400 Respiratory rate 18 /min Alexis Lopeze [facility] 03-08-2024 13:37-0400 SaO2% (BldA) [Mass fraction] 100 % Alexis Vazquez [facility] 03-08-2024 13:37-0400 Systolic blood pressure 126 mm[Hg] Alexis Vazquez [facility] 03-08-2024 13:14-0400 Body temperature 98.24 [degF] Alexis Vazquez [facility] 03-08-2024 13:14-0400 Diastolic blood pressure 87 mm[Hg] Alexis Vazquez [facility] 03-08-2024 13:14-0400 Heart rate 67 /min Alexis Vazquez [facility] 03-08-2024 13:14-0400 Respiratory rate 16 /min Alxeis Lopeze [facility] 03-08-2024 13:14-0400 Systolic blood pressure 135 mm[Hg] Alexis Shukla [facility] 03-08-2024 08:06-0400 Body height 170.2 cm Elia Baires DO Work Phone: [facility] 03-08-2024 08:06-0400 Body mass index (BMI) [Ratio] 30.9 kg/m2 Elia Baires DO Work Phone: [facility] 03-08-2024 08:06-0400 Body weight 89.5 kg Elia Baires DO Work Phone: [facility] 03-08-2024 08:06-0400 Diastolic blood pressure 72 mm[Hg] Elia Baires DO Work Phone: [facility] 03-08-2024 08:06-0400 Heart rate 82 /min Elia Baires DO Work Phone: [facility] 03-08-2024 08:06-0400 SaO2% (BldA) [Mass fraction] 100 % Elia Baires DO Work Phone: [facility] 03-08-2024 08:06-0400 Systolic blood pressure 114 mm[Hg] Elia Baires DO Work Phone: [facility] 01-04-2024 09:28-0400 Body height 170.2 cm Elia Baires DO Work Phone: [facility] 01-04-2024 09:28-0400 Body mass index (BMI) [Ratio] 31.96 kg/m2 Elia Baires DO Work Phone: [facility] 01-04-2024 09:28-0400 Body weight 92.55 kg Elia Baires DO Work Phone: [facility] 01-04-2024 09:28-0400 Diastolic blood pressure 86 mm[Hg] Elia Baires DO Work Phone: [facility] 01-04-2024 09:28-0400 Heart rate 92 /min Elia Baires DO Work Phone: [facility] 01-04-2024 09:28-0400 SaO2% (BldA) [Mass fraction] 97 % Elia Baires DO Work Phone: [facility] 01-04-2024 09:28-0400 Systolic blood pressure 123 mm[Hg] Eliafredrick Baires DO Work Phone: [facility] 12-31-2023 11:17-0400 Heart rate 76 /min DO Jennie Ames Work Phone: [facility] 12-31-2023 11:14-0400 Body temperature 98.2 [degF] DO Jennie Ames Work Phone: [facility] 12-31-2023 11:14-0400 Diastolic blood pressure 73 mm[Hg] DO Jennie Ames Work Phone: [facility] 12-31-2023 11:14-0400 Respiratory rate 18 /min DO Jennie Ames Work Phone: [facility] 12-31-2023 11:14-0400 SaO2% (BldA) [Mass fraction] 97 % DO Jennie Ames Work Phone: [facility] 12-31-2023 11:14-0400 Systolic blood pressure 138 mm[Hg] DO Jennie Ames Work Phone: [facility] 12-31-2023 11:13-0400 Body height 170.18 cm DO Jennie Ames Work Phone: [facility] 12-31-2023 11:13-0400 Body weight 89.35 kg DO Jennie Ames Work Phone: [facility] 12-24-2023 11:58-0400 Body height 170.18 cm DO Jennie Ames Work Phone: [facility] 12-24-2023 11:58-0400 Body temperature 97.8 [degF] DO Jennie Ames Work Phone: [facility] 12-24-2023 11:58-0400 Body weight 89 kg DO Jennie Ames Work Phone: [facility] 12-24-2023 11:58-0400 Diastolic blood pressure 91 mm[Hg] DO Jennie Ames Work Phone: [facility] 12-24-2023 11:58-0400 Heart rate 85 /min DO Jennie Ames Work Phone: [facility] 12-24-2023 11:58-0400 Respiratory rate 15 /min DO Jennie Ames Work Phone: [facility] 12-24-2023 11:58-0400 SaO2% (BldA) [Mass fraction] 100 % DO Jennie Ames Work Phone: [facility] 12-24-2023 11:58-0400 Systolic blood pressure 137 mm[Hg] DO Jennie Ames Work Phone: [facility] 12-10-2023 12:35-0400 Heart rate 70 /min DO Jennie Ames Work Phone: [facility] 12-10-2023 12:35-0400 Respiratory rate 16 /min DO Jennie Ames Work Phone: [facility] 12-10-2023 12:35-0400 SaO2% (BldA) [Mass fraction] 98 % DO Jennie Ames Work Phone: [facility] 12-10-2023 12:08-0400 Body height 170.18 cm DO Jennie Ames Work Phone: [facility] 12-10-2023 12:08-0400 Body temperature 98 [degF] DO Jennie Ames Work Phone: [facility] 12-10-2023 12:08-0400 Body weight 89.8 kg DO Jennie Ames Work Phone: [facility] 12-10-2023 12:08-0400 Diastolic blood pressure 76 mm[Hg] DO Jennie Ames Work Phone: [facility] 12-10-2023 12:08-0400 Systolic blood pressure 123 mm[Hg] DO Jennie Ames Work Phone: [facility] 09-18-2023 08:49-0500 Diastolic blood pressure 72 mm[Hg] Gamaliel Harris DO Work Phone: [facility] [employer] 09-18-2023 08:49-0500 Heart rate 58 /min Gamaliel Harris DO Work Phone: [facility] [employer] 09-18-2023 08:49-0500 Respiratory rate 18 /min Gamaliel Harris DO Work Phone: [facility] [employer] 09-18-2023 08:49-0500 SaO2% (BldA) [Mass fraction] 100 % Gamaliel Harris DO Work Phone: [facility] [employer] 09-18-2023 08:49-0500 Systolic blood pressure 111 mm[Hg] Gamaliel Harris DO Work Phone: [employer] 09-18-2023 08:24-0500 Body temperature 97.11 [degF] Gamaliel Harris DO Work Phone: [facility] [employer] 09-18-2023 07:23-0500 Body height 170.2 cm Gamaliel Harris DO Work Phone: [facility] [employer] 09-18-2023 07:23-0500 Body mass index (BMI) [Ratio] 31.79 kg/m2 Gamaliel Harris DO Work Phone: [employer] 09-18-2023 07:23-0500 Body weight 92.08 kg Gamaliel Harris DO Work Phone: [facility] [employer] 08-15-2023 13:37-0500 Diastolic blood pressure 69 mm[Hg] DO Jennie Ames Work Phone: [facility] 08-15-2023 13:37-0500 Heart rate 70 /min DO Jennie Ames Work Phone: [facility] 08-15-2023 13:37-0500 Respiratory rate 18 /min DO Jennie Ames Work Phone: [facility] 08-15-2023 13:37-0500 SaO2% (BldA) [Mass fraction] 99 % DO Jennie Ames Work Phone: [facility] 08-15-2023 13:37-0500 Systolic blood pressure 107 mm[Hg] DO Jennie Ames Work Phone: [facility] 08-15-2023 11:29-0500 Body height 170.18 cm DO Jennie Ames Work Phone: [facility] 08-15-2023 11:29-0500 Body temperature 98.2 [degF] DO Jennie Ames Work Phone: [facility] 08-15-2023 11:29-0500 Body weight 86.18 kg DO Jennie Ames Work Phone: [facility] 08-14-2023 16:43-0500 Body height 170.18 cm DO Jennie Ames Work Phone: [facility] 08-14-2023 16:43-0500 Body temperature 98.2 [degF] DO Jennie Ames Work Phone: [facility] 08-14-2023 16:43-0500 Body weight 88.6 kg DO Jennie Ames Work Phone: [facility] 08-14-2023 16:43-0500 Diastolic blood pressure 66 mm[Hg] DO Jennie Ames Work Phone: [facility] 08-14-2023 16:43-0500 Heart rate 80 /min DO Jennie Ames Work Phone: [facility] 08-14-2023 16:43-0500 Respiratory rate 18 /min DO Jennie Ames Work Phone: [facility] 08-14-2023 16:43-0500 SaO2% (BldA) [Mass fraction] 98 % DO Jennie Ames Work Phone: [facility] 08-14-2023 16:43-0500 Systolic blood pressure 118 mm[Hg] DO Jennie Ames Work Phone: [facility] 08-13-2023 11:15-0500 Body height 170.18 cm Imad Asaad Other [employer] Other 08-13-2023 11:15-0500 Body mass index (BMI) [Ratio] 30.54 kg/m2 Imad Asaad Other [employer] Other 08-13-2023 11:15-0500 Body weight 88.45 kg Imad Asaad Other [employer] Other 08-13-2023 11:15-0500 Diastolic blood pressure 84 mm[Hg] Imad Asaad Other [employer] Other 08-13-2023 11:15-0500 Systolic blood pressure 133 mm[Hg] Imad Asaad Other [employer] Other 07-08-2023 12:05-0400 Body height 170.18 cm Ania Javed Other [employer] Other 07-08-2023 12:05-0400 Body mass index (BMI) [Ratio] 30.22 kg/m2 Ania Javed Other [employer] Other 07-08-2023 12:05-0400 Body temperature 99 [degF] Ania Javed Other [employer] Other 07-08-2023 12:05-0400 Body weight 87.54 kg Ania Javed Other [employer] Other 07-08-2023 12:05-0400 Diastolic blood pressure 64 mm[Hg] Ania Javed Other [employer] Other 07-08-2023 12:05-0400 Respiratory rate 19 /min Ania Javed Other [employer] Other 07-08-2023 12:05-0400 SaO2% (BldA) [Mass fraction] 98 % Ania Javed Other [employer] Other 07-08-2023 12:05-0400 Systolic blood pressure 110 mm[Hg] Ania Javed Other [employer] Other 07-03-2023 11:05-0400 Diastolic blood pressure 80 mm[Hg] DO Jennie Ames Work Phone: [facility] 07-03-2023 11:05-0400 Heart rate 78 /min DO Jennie Ames Work Phone: [facility] 07-03-2023 11:05-0400 Respiratory rate 16 /min DO Jennie Ames Work Phone: [facility] 07-03-2023 11:05-0400 SaO2% (BldA) [Mass fraction] 99 % DO Jennie Ames Work Phone: [facility] 07-03-2023 11:05-0400 Systolic blood pressure 119 mm[Hg] DO Jennie Ames Work Phone: [facility] 07-03-2023 10:10-0400 Body height 170.18 cm DO Jennie Ames Work Phone: [facility] 07-03-2023 10:10-0400 Body temperature 98.7 [degF] DO Jennie Ames Work Phone: [facility] 07-03-2023 10:10-0400 Body weight 86.9 kg DO Jennie Ames Work Phone: [facility] 07-02-2023 14:06-0400 Body temperature 98.06 [degF] Bakari Henrik [facility] 07-02-2023 14:06-0400 Diastolic blood pressure 78 mm[Hg] Bakari Henrik [facility] 07-02-2023 14:06-0400 Heart rate 91 /min Bakari Henrik [facility] 07-02-2023 14:06-0400 Respiratory rate 18 /min Bakari Henrik [facility] 07-02-2023 14:06-0400 SaO2% (BldA) [Mass fraction] 100 % Bakari Henrik [facility] 07-02-2023 14:06-0400 Systolic blood pressure 121 mm[Hg] Bakari Henrik [facility] 01-15-2023 13:30-0400 Diastolic blood pressure 85 mm[Hg] Bakari Henrik [facility] 01-15-2023 13:30-0400 Heart rate 71 /min Bakari Henrik [facility] 01-15-2023 13:30-0400 Mean blood pressure 98 mm[Hg] Bakari Henrik [facility] 01-15-2023 13:30-0400 Respiratory rate 18 /min Bakari Henrik [facility] 01-15-2023 13:30-0400 SaO2% (BldA) [Mass fraction] 100 % Bakari Henrik [facility] 01-15-2023 13:30-0400 Systolic blood pressure 125 mm[Hg] Bakari Henrik [facility] 01-15-2023 12:30-0400 Diastolic blood pressure 99 mm[Hg] Bakari Henrik [facility] 01-15-2023 12:30-0400 Heart rate 78 /min Bakari Henrik [facility] 01-15-2023 12:30-0400 Mean blood pressure 107 mm[Hg] Bakari Henrik [facility] 01-15-2023 12:30-0400 Respiratory rate 18 /min Bakari Henrik [facility] 01-15-2023 12:30-0400 SaO2% (BldA) [Mass fraction] 100 % Bakari Henrik [facility] 01-15-2023 12:30-0400 Systolic blood pressure 122 mm[Hg] Bakari Henrik [facility] 01-15-2023 10:50-0400 Body temperature 98.42 [degF] Bakari Henrik [facility] 01-15-2023 10:50-0400 Diastolic blood pressure 74 mm[Hg] Bakari Henrik [facility] 01-15-2023 10:50-0400 Heart rate 77 /min Bakari Henrik [facility] 01-15-2023 10:50-0400 Mean blood pressure 92 mm[Hg] Bakari Henrik [facility] 01-15-2023 10:50-0400 Respiratory rate 17 /min Bakari Henrik [facility] 01-15-2023 10:50-0400 SaO2% (BldA) [Mass fraction] 99 % Bakari Chester [facility] 01-15-2023 10:50-0400 Systolic blood pressure 129 mm[Hg] Bakari Chester [facility] 12-05-2022 13:20-0400 Diastolic blood pressure 74 mm[Hg] Gal Das [facility] 12-05-2022 13:20-0400 Heart rate 58 /min Gal Das [facility] 12-05-2022 13:20-0400 Respiratory rate 18 /min Gal Das [facility] 12-05-2022 13:20-0400 SaO2% (BldA) [Mass fraction] 100 % Gal Das [facility] 12-05-2022 13:20-0400 Systolic blood pressure 110 mm[Hg] Gal Das [facility] 12-05-2022 12:00-0400 Heart rate 54 /min Gal Das [facility] 12-05-2022 12:00-0400 SaO2% (BldA) [Mass fraction] 100 % Gal Das [facility] 12-05-2022 11:59-0400 Diastolic blood pressure 72 mm[Hg] Gal Das [facility] 12-05-2022 11:59-0400 Mean blood pressure 84 mm[Hg] Gal Das [facility] 12-05-2022 11:59-0400 Systolic blood pressure 109 mm[Hg] Gal Das [facility] 12-05-2022 11:53-0400 Body temperature 97.52 [degF] Gal Das [facility] 12-05-2022 11:53-0400 Diastolic blood pressure 73 mm[Hg] Gal Das [facility] 12-05-2022 11:53-0400 Heart rate 59 /min Gal Das [facility] 12-05-2022 11:53-0400 Mean blood pressure 87 mm[Hg] Gal Das [facility] 12-05-2022 11:53-0400 Respiratory rate 14 /min Gal Das [facility] 12-05-2022 11:53-0400 SaO2% (BldA) [Mass fraction] 100 % Gal Das [facility] 12-05-2022 11:53-0400 Systolic blood pressure 115 mm[Hg] Gal Das [facility] 12-05-2022 11:40-0400 Mean blood pressure 80 mm[Hg] Gal Das [facility] 12-05-2022 11:40-0400 Respiratory rate 18 /min Gal Das [facility] 12-05-2022 11:30-0400 Mean blood pressure 90 mm[Hg] Gal Das [facility] 12-05-2022 11:15-0400 Body temperature 97.34 [degF] Gal Das [facility] 12-05-2022 11:10-0400 Respiratory rate 18 /min Gal Das [facility] 12-05-2022 11:05-0400 Respiratory rate 21 /min Gal Das [facility] 12-05-2022 11:00-0400 Respiratory rate 11 /min Gal Das [facility] 12-05-2022 07:15-0400 Mean blood pressure 79 mm[Hg] Gal Das [facility] 12-05-2022 07:15-0400 Body temperature 97.88 [degF] Gal Das [facility] 12-05-2022 07:15-0400 Heart rate 72 /min Gal Das [facility] 12-05-2022 07:12-0400 Mean blood pressure 82 mm[Hg] Gal Das [facility] 11-21-2022 10:44-0500 Diastolic blood pressure 75 mm[Hg] Gal Das [facility] 11-21-2022 10:44-0500 Heart rate 67 /min Gal Das [facility] 11-21-2022 10:44-0500 Mean blood pressure 88 mm[Hg] Gal Das [facility] 11-21-2022 10:44-0500 Systolic blood pressure 112 mm[Hg] Gal Das [facility] 11-21-2022 10:44-0500 Heart rate 71 /min Gal Das [facility] 11-21-2022 10:44-0500 SaO2% (BldA) [Mass fraction] 100 % Gal Das [facility] 11-21-2022 10:43-0500 Diastolic blood pressure 79 mm[Hg] Gal Das [facility] 11-21-2022 10:43-0500 Mean blood pressure 91 mm[Hg] Gal Das [facility] 11-21-2022 10:43-0500 Systolic blood pressure 116 mm[Hg] Gal Das [facility] 11-21-2022 10:43-0500 Respiratory rate 16 /min Gal Das [facility] 11-20-2022 08:09-0500 Body height 170.2 cm Eileen Manzano MD Work Phone: [facility] 11-20-2022 08:09-0500 Body weight 85.73 kg Eileen Manzano MD Work Phone: [facility] 11-20-2022 08:09-0500 Diastolic blood pressure 81 mm[Hg] Eileen Manzano MD Work Phone: [facility] 11-20-2022 08:09-0500 Heart rate 67 /min Eileen Manzano MD Work Phone: [facility] 11-20-2022 08:09-0500 SaO2% (BldA) [Mass fraction] 100 % Eileen Manzano MD Work Phone: [facility] 11-20-2022 08:09-0500 Systolic blood pressure 137 mm[Hg] Eileen Manzano MD Work Phone: [facility] 11-03-2022 12:57-0500 Blood Pressure Location Nakiaarmando Mcqueen [facility] 11-03-2022 12:57-0500 Body temperature 98.24 [degF] Nakia Mcqueen [facility] 11-03-2022 12:57-0500 Diastolic blood pressure 80 mm[Hg] Nakia Mcqueen [facility] 11-03-2022 12:57-0500 Heart rate 85 /min Nakiadestin Mcqueen [facility] 11-03-2022 12:57-0500 SaO2% (BldA) [Mass fraction] 98 % Nakia Mcqueen [facility] 11-03-2022 12:57-0500 Systolic blood pressure 104 mm[Hg] Nakia Mcqueen [facility] 09-24-2022 06:57-0500 Blood Pressure Location Aimee Walker [facility] 09-24-2022 06:57-0500 Body temperature 98.24 [degF] Aimee Walker [facility] 09-24-2022 06:57-0500 Diastolic blood pressure 64 mm[Hg] Aimee Walker [facility] 09-24-2022 06:57-0500 Heart rate 77 /min Aimee Walker [facility] 09-24-2022 06:57-0500 SaO2% (BldA) [Mass fraction] 99 % Aimee Walker [facility] 09-24-2022 06:57-0500 Systolic blood pressure 118 mm[Hg] Aimee Walker [facility] 08-22-2022 10:31-0500 Blood Pressure Location [facility] 08-22-2022 10:31-0500 Body temperature 98.06 [degF] Rahul Salinas [facility] 08-22-2022 10:31-0500 Diastolic blood pressure 76 mm[Hg] [facility] 08-22-2022 10:31-0500 Heart rate 95 /min Rahul Rita [facility] 08-22-2022 10:31-0500 SaO2% (BldA) [Mass fraction] 98 % [facility] 08-22-2022 10:31-0500 Systolic blood pressure 110 mm[Hg] Rahul Salinas [facility] 08-19-2022 09:45-0500 Diastolic blood pressure 69 mm[Hg] DO Jennie Ames Work Phone: [facility] 08-19-2022 09:45-0500 Heart rate 82 /min DO Jennie Ames Work Phone: [facility] 08-19-2022 09:45-0500 Respiratory rate 16 /min DO Jennie Ames Work Phone: [facility] 08-19-2022 09:45-0500 SaO2% (BldA) [Mass fraction] 95 % DO Jennie Ames Work Phone: [facility] 08-19-2022 09:45-0500 Systolic blood pressure 104 mm[Hg] DO Jennie Ames Work Phone: [facility] 08-19-2022 07:41-0500 Body height 170.18 cm DO Jennie Ames Work Phone: [facility] 08-19-2022 07:41-0500 Body weight 83.6 kg DO Jennie Ames Work Phone: [facility] 08-18-2022 17:26-0500 Body temperature 98.06 [degF] Alexis Shukla [facility] 08-18-2022 17:26-0500 Diastolic blood pressure 83 mm[Hg] Alexis Shukla [facility] 08-18-2022 17:26-0500 Heart rate 84 /min Alexis Shukla [facility] 08-18-2022 17:26-0500 Respiratory rate 18 /min Alexis Shukla [facility] 08-18-2022 17:26-0500 SaO2% (BldA) [Mass fraction] 98 % Alexis Shukla [facility] 08-18-2022 17:26-0500 Systolic blood pressure 120 mm[Hg] Alexis Shukla [facility] 08-12-2022 15:50-0500 Body temperature 97.9 [degF] DO Jennie Ames Work Phone: [facility] 08-12-2022 15:50-0500 Diastolic blood pressure 83 mm[Hg] DO Jennie Ames Work Phone: [facility] 08-12-2022 15:50-0500 Heart rate 64 /min DO Jennie Ames Work Phone: [facility] 08-12-2022 15:50-0500 Respiratory rate 20 /min DO Jennie Ames Work Phone: [facility] 08-12-2022 15:50-0500 SaO2% (BldA) [Mass fraction] 100 % DO Jennie Ames Work Phone: [facility] 08-12-2022 15:50-0500 Systolic blood pressure 136 mm[Hg] DO Jennie Ames Work Phone: [facility] 08-12-2022 11:00-0500 Body height 170.18 cm DO Jennie Ames Work Phone: [facility] 08-12-2022 06:00-0500 Body weight 88.1 kg DO Jennie Ames Work Phone: [facility] 08-08-2022 10:30-0500 Diastolic blood pressure 76 mm[Hg] Bakari Chester [facility] 08-08-2022 10:30-0500 Heart rate 58 /min Bakari Chester [facility] 08-08-2022 10:30-0500 Mean blood pressure 88 mm[Hg] Bakari Chester [facility] 08-08-2022 10:30-0500 Respiratory rate 20 /min Bakari Henrik [facility] 08-08-2022 10:30-0500 SaO2% (BldA) [Mass fraction] 100 % Bakari Henrik [facility] 08-08-2022 10:30-0500 Systolic blood pressure 112 mm[Hg] Bakari Chester [facility] 08-08-2022 10:00-0500 Diastolic blood pressure 86 mm[Hg] Bakari Henrik [facility] 08-08-2022 10:00-0500 Heart rate 64 /min Bakarisamuel Chester [facility] 08-08-2022 10:00-0500 Mean blood pressure 97 mm[Hg] Bakari Chester [facility] 08-08-2022 10:00-0500 Systolic blood pressure 120 mm[Hg] Bakari Henrik [facility] 08-08-2022 09:13-0500 gluc 98 mg/dL Bakarisamuel Chester [facility] 08-08-2022 09:13-0500 gluc Bakarisamuel Chester [facility] 08-08-2022 09:06-0500 Body temperature 97.7 [degF] Bakari Chester [facility] 08-08-2022 09:06-0500 Diastolic blood pressure 87 mm[Hg] Bakari Henrik [facility] 08-08-2022 09:06-0500 Heart rate 79 /min Bakari Henrik [facility] 08-08-2022 09:06-0500 Respiratory rate 18 /min Bakari Chester [facility] 08-08-2022 09:06-0500 SaO2% (BldA) [Mass fraction] 100 % Bakari Chester [facility] 08-08-2022 09:06-0500 Systolic blood pressure 127 mm[Hg] Bakari Chester [facility] 07-21-2022 10:50-0500 Blood Pressure Location Aimeeerin Valadezell [facility] 07-21-2022 10:50-0500 Body temperature 97.7 [degF] Aimee Walker [facility] 07-21-2022 10:50-0500 Diastolic blood pressure 72 mm[Hg] Aimee Walker [facility] 07-21-2022 10:50-0500 Heart rate 74 /min Aimee Walker [facility] 07-21-2022 10:50-0500 SaO2% (BldA) [Mass fraction] 99 % Aimee Walker [facility] 07-21-2022 10:50-0500 Systolic blood pressure 128 mm[Hg] Aimee Walker [facility] 05-13-2022 10:09-0400 Diastolic blood pressure 74 mm[Hg] Alexis Rivers [facility] 05-13-2022 10:09-0400 Heart rate 68 /min Alexis Rivers [facility] 05-13-2022 10:09-0400 Systolic blood pressure 112 mm[Hg] Alexis Rivers [facility] 04-21-2022 09:39-0400 Blood Pressure Location Aimee Valdaezell [facility] 04-21-2022 09:39-0400 Body temperature 98.24 [degF] Aimee Valadezell [facility] 04-21-2022 09:39-0400 Diastolic blood pressure 72 mm[Hg] Aimee Walker [facility] 04-21-2022 09:39-0400 Heart rate 94 /min Aimeeerin Valadezell [facility] 04-21-2022 09:39-0400 SaO2% (BldA) [Mass fraction] 100 % Aimeeerin Valadezell [facility] 04-21-2022 09:39-0400 Systolic blood pressure 112 mm[Hg] Aimee Walker [facility] 04-20-2022 14:56-0400 Body temperature 98.24 [degF] [facility] 04-20-2022 14:56-0400 Diastolic blood pressure 72 mm[Hg] [facility] 04-20-2022 14:56-0400 Heart rate 69 /min [facility] 04-20-2022 14:56-0400 Respiratory rate 18 /min [facility] 04-20-2022 14:56-0400 SaO2% (BldA) [Mass fraction] 99 % [facility] 04-20-2022 14:56-0400 Systolic blood pressure 111 mm[Hg] [facility] 04-03-2022 19:17-0400 Hourly Rounding Kaylinn Dokken [facility] 04-03-2022 19:17-0400 Promise to Return Kaylinn Dokken [facility] 04-03-2022 19:15-0400 Diastolic blood pressure 71 mm[Hg] Kaylinn Dokken [facility] 04-03-2022 19:15-0400 Heart rate 63 /min Kaylinn Dokken [facility] 04-03-2022 19:15-0400 Mean blood pressure 82 mm[Hg] Kaylinn Dokken [facility] 04-03-2022 19:15-0400 Respiratory rate 18 /min Kaylinn Dokken [facility] 04-03-2022 19:15-0400 SaO2% (BldA) [Mass fraction] 100 % Kaylinn Dokken [facility] 04-03-2022 19:15-0400 Systolic blood pressure 105 mm[Hg] Kaylinn Dokken [facility] 04-03-2022 17:09-0400 Body temperature 98.06 [degF] Kaylinn Dokken [facility] 04-03-2022 17:09-0400 Diastolic blood pressure 83 mm[Hg] Kaylinn Dokken [facility] 04-03-2022 17:09-0400 Heart rate 87 /min Kaylinn Dokken [facility] 04-03-2022 17:09-0400 Respiratory rate 18 /min Kaylinn Dokken [facility] 04-03-2022 17:09-0400 SaO2% (BldA) [Mass fraction] 99 % Larry Baker [facility] 04-03-2022 17:09-0400 Systolic blood pressure 119 mm[Hg] Larry Baker [facility] 02-06-2022 09:06-0400 Blood Pressure Location Aimeeerin Valadezell [facility] 02-06-2022 09:06-0400 Body temperature 97.52 [degF] Aimee Walker [facility] 02-06-2022 09:06-0400 Diastolic blood pressure 72 mm[Hg] Aimee Walker [facility] 02-06-2022 09:06-0400 Heart rate 81 /min Aimee Walker [facility] 02-06-2022 09:06-0400 SaO2% (BldA) [Mass fraction] 100 % Aimee Walker [facility] 02-06-2022 09:06-0400 Systolic blood pressure 130 mm[Hg] Aimee Walker [facility] 01-29-2022 10:31-0400 Blood Pressure Location Aimee Walker [facility] 01-29-2022 10:31-0400 Body temperature 97.16 [degF] Aimee Walker [facility] 01-29-2022 10:31-0400 Diastolic blood pressure 76 mm[Hg] Aimee Walker [facility] 01-29-2022 10:31-0400 Heart rate 94 /min Aimee Walker [facility] 01-29-2022 10:31-0400 SaO2% (BldA) [Mass fraction] 98 % Aimee Walker [facility] 01-29-2022 10:31-0400 Systolic blood pressure 118 mm[Hg] Aimee Walker [facility] 02-01-2021 07:15-0400 Body temperature 97.7 [degF] Berry Lawson MD Work Phone: [employer] Work Phone: 02-01-2021 07:15-0400 Diastolic blood pressure 63 mm[Hg] Berry Lawson MD Work Phone: [employer] Work Phone: 02-01-2021 07:15-0400 Heart rate 82 /min Berry Lawson MD Work Phone: [employer] Work Phone: 02-01-2021 07:15-0400 Respiratory rate 18 /min Berry Lawson MD Work Phone: [employer] Work Phone: 02-01-2021 07:15-0400 SaO2% (BldA) [Mass fraction] 98 % Berry Lawson MD Work Phone: [employer] Work Phone: 02-01-2021 07:15-0400 Systolic blood pressure 110 mm[Hg] Berry Lawson MD Work Phone: [employer] Work Phone: 01-30-2021 16:54-0400 Body height 170.2 cm Berry Lawson MD Work Phone: [employer] Work Phone: 01-30-2021 16:54-0400 Body mass index (BMI) [Ratio] 38.53 kg/m2 Berry Lawson MD Work Phone: [employer] Work Phone: 01-30-2021 16:54-0400 Body weight 111.58 kg Berry Lawson MD Work Phone: [employer] Work Phone: 01-30-2021 14:27-0400 Diastolic blood pressure 66 mm[Hg] David Nash MD Work Phone: [employer] Work Phone: 01-30-2021 14:27-0400 Heart rate 93 /min David Nash MD Work Phone: [employer] Work Phone: 01-30-2021 14:27-0400 Respiratory rate 16 /min David Nash MD Work Phone: [employer] Work Phone: 01-30-2021 14:27-0400 SaO2% (BldA) [Mass fraction] 98 % David Nash MD Work Phone: [employer] Work Phone: 01-30-2021 14:27-0400 Systolic blood pressure 107 mm[Hg] David Nash MD Work Phone: [employer] Work Phone: 01-30-2021 09:51-0400 Body temperature 97.2 [degF] David Nash MD Work Phone: [employer] Work Phone: 01-26-2021 09:00-0400 Body temperature 98.2 [degF] Gamaliel Harris KDPOF Work Phone: [employer] Work Phone: 01-26-2021 09:00-0400 Diastolic blood pressure 77 mm[Hg] Gamaliel Harris KDPOF Work Phone: [employer] Phone: 01-26-2021 09:00-0400 Heart rate 90 /min Gamaliel Harris KDPOF Work Phone: [employer] Work Phone: 01-26-2021 09:00-0400 Respiratory rate 16 /min Gamaliel Harris KDPOF Work Phone: [employer] Work Phone: 01-26-2021 09:00-0400 SaO2% (BldA) [Mass fraction] 96 % Gamaliel Harris [employer] Work Phone: [employer] Work Phone: 01-26-2021 09:00-0400 Systolic blood pressure 111 mm[Hg] Gamaliel Harris DO Work Phone: [employer] Work Phone: 01-08-2021 07:35-0400 Body temperature 97.81 [degF] Gamaliel Harris KDPOF Work Phone: [employer] Phone: 01-08-2021 07:35-0400 SaO2% (BldA) [Mass fraction] 97 % Gamaliel Harris KDPOF Work Phone: [employer] Phone: 01-08-2021 07:29-0400 Diastolic blood pressure 77 mm[Hg] Gamaliel Harris KDPOF Work Phone: [employer] Phone: 01-08-2021 07:29-0400 Heart rate 87 /min Gamaliel Harris KDPOF Work Phone: [employer] Work Phone: 01-08-2021 07:29-0400 Respiratory rate 18 /min Gamaliel Harris KDPOF Work Phone: [employer] Work Phone: 01-08-2021 07:29-0400 Systolic blood pressure 123 mm[Hg] Gamaliel Harris KDPOF Work Phone: [employer] Phone: 01-07-2021 06:29-0400 Body height 170.2 cm Gamaliel Harris [employer] Phone: [employer] Phone: 01-07-2021 06:29-0400 Body mass index (BMI) [Ratio] 40.68 kg/m2 Gamaliel Harris KDPOF Work Phone: [employer] Phone: 01-07-2021 06:29-0400 Body weight 117.8 kg Gamaliel Harris KDPOF Work Phone: [employer] Phone: 12-24-2020 10:33-0400 Body height 170.2 cm [facility] [employer] Phone: 12-24-2020 10:33-0400 Body mass index (BMI) [Ratio] 42.76 kg/m2 [facility] [employer] Phone: 12-24-2020 10:33-0400 Body temperature 97.7 [degF] [facility] [employer] Phone: 12-24-2020 10:33-0400 Body weight 123.83 kg [facility] 2 [employer] Phone: 12-24-2020 10:33-0400 Diastolic blood pressure 76 mm[Hg] [facility] [employer] Phone: 12-24-2020 10:33-0400 Heart rate 71 /min [facility] [employer] Phone: 12-24-2020 10:33-0400 Respiratory rate 18 /min [facility] [employer] Phone: 12-24-2020 10:33-0400 SaO2% (BldA) [Mass fraction] 98 % [facility] [employer] Phone: 12-24-2020 10:33-0400 Systolic blood pressure 115 mm[Hg] [facility] [employer] Phone: 09-28-2020 08:40-0500 BP Diastolic 75 mm[Hg] [facility] [place] [place] 09-28-2020 08:40-0500 BP Systolic 117 mm[Hg] Gamaliel Harris [employer] [place] 09-28-2020 08:40-0500 Pulse (Heart Rate) 84 /min Gamaliel Harris [employer] [place] 09-28-2020 08:40-0500 Pulse Oximetry 100 % Gamaliel Harris [place] 09-28-2020 08:25-0500 Body Temperature 96.8 [degF] Gamaliel Harris [place] 09-28-2020 08:25-0500 Respiratory Rate 23 /min Gamaliel Harris [employer] [place], [place] 09-28-2020 07:07-0500 BMI (Body Mass Index) 45.66 kg/m2 Gamaliel Harris [employer] [place] 09-28-2020 07:07-0500 Body weight 132.22 kg Gamaliel Harris [place] 09-28-2020 07:07-0500 Height 170.2 cm Gamaliel Harris [place] Encounters Encounter Date Encounter Type Care Provider Facility Start: 03-08-2024 End: 03-08-2024 Emergency department patient visit Alexis Shukla [facility] Start: 03-08-2024 End: 03-08-2024 Subsequent hospital visit by physician Mri [facility] Rhodelia (Lg Bore/1.5t) Radiology MRI Comment on above: 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 ] Start: 03-08-2024 End: 03-08-2024 ambulatory ELIA BAIRES Facility:[facility] Start: 03-08-2024 End: 03-08-2024 Patient encounter procedure Elia Baires DO Work Phone: Family Medicine Comment on above: Routine health maint enance (Primary Dx); Class 1 obesity due to excess calories without serious comorbidity with body mass index (BMI) of 30.0 to 30.9 in adult; Family history of pancreatic cancer; Family history of cancer; Mass of upper outer quadrant of left breast; Dermatitis; History of hysterectomy; Chronic alcoholism in remission (HCC); Panic disorder; Idiopathic intracranial hypertension; Bipolar affective disorder in remission (HCC); Borderline personality disorder (HCC); Anxiety disorder, unspecified type Start: 03-08-2024 End: 03-08-2024 Patient encounter status Elia Baires DO Work Phone: [facility] Work Phone: Start: 02-25-2024 End: 02-25-2024 ambulatory ELIA BAIRES Facility:[facility] Start: 01-13-2024 End: 01-14-2024 ambulatory [facility] Start: 01-05-2024 Telephone encounter Elia rob DO Work Phone: Family Medicine Start: 01-04-2024 End: 01-04-2024 ambulatory ELIA BAIRES Facility:[facility] Start: 01-04-2024 End: 01-04-2024 Patient encounter procedure Elia Baires DO Work Phone: Family Medicine Comment on above: Panic disorder (Prim masoud Dx); Borderline personality disorder (HCC); Bipolar affective disorder in remission (HCC); Chronic alcoholism in remission (HCC); Routine health maintenance Start: 01-04-2024 End: 01-04-2024 Patient encounter status Elia Baires DO Work Phone: [facility] Start: 12-31-2023 End: 12-31-2023 Emergency department patient visit Kenny Javed Facility:[facility] Start: 12-31-2023 End: 12-31-2023 Emergency department patient visit DO Jennie Ames Work Phone: [facility] Work Phone: Start: 12-25-2023 ambulatory SELF REFERRAL Facility: [facility] Start: 12-24-2023 End: 12-24-2023 Emergency department patient visit Jose Maria Nair Facility:[facility] Start: 12-24-2023 End: 12-24-2023 Emergency department patient visit DO Jennie Ames Work Phone: [facility] Work Phone: Start: 2023 ambulatory Otto Larsen Facility:[facility] Start: 12-10-2023 End: 12-10-2023 Emergency department patient visit Marii Christiansen Facility:[facility] Start: 12-10-2023 End: 12-10-2023 Emergency department patient visit DO Jennie Ames Work Phone: [facility] Work Phone: Start: 12-09-2023 End: 12-09-2023 ambulatory Jennie Ames Facility:[facility] Start: 12-09-2023 End: 12-09-2023 Patient encounter procedure Jennie Ames [facility] Start: 10-23-2023 End: 10-26-2023 ambulatory MARII [facility] Start: 10-12-2023 End: 10-15-2023 ambulatory GAMALIEL Agee [facility] Start: 09-18-2023 End: 09-18-2023 [facility] Start: 09-18-2023 End: 09-18-2023 Subsequent hospital visit by physician Gamaliel Harris DO Work Phone: [facility] [place] Start: 08-31-2023 End: 09-01-2023 ambulatory LEONELA Fallon CAVAZOSSATHISH Facility:[facility] Start: 08-28-2023 End: 08-28-2023 ambulatory Imad Asaad Other [employer] Other Start: 08-28-2023 Telephone encounter Imad Asaad [facility] Start: 08-18-2023 End: 08-21-2023 ambulatory MARII [facility] Start: 08-15-2023 End: 08-15-2023 Emergency department patient visit Jennie Ames Facility:[facility] Start: 08-15-2023 End: 08-15-2023 Emergency department patient visit DO Jennie Ladarius Work Phone: [facility] Work Phone: Start: 08-14-2023 End: 08-14-2023 Emergency department patient visit Jennie Ames Facility:[facility] Start: 08-14-2023 End: 08-14-2023 Emergency department patient visit DO Jennie Ames Work Phone: [facility] Work Phone: Start: 08-13-2023 End: 08-13-2023 ambulatory Imad Asaad Other [employer] Other Start: 08-13-2023 Office outpatient ne w 45 minutes Imad Asaad [facility] Start: 08-12-2023 End: 08-15-2023 ambulatory MARIIFLORENCE [facility] Start: 07-30-2023 End: 07-31-2023 ambulatory JENNIE AMES [facility] Start: 07-08-2023 End: 07-08-2023 ambulatory Ania Javed Other [employer] Other Start: 07-08-2023 Office outpatient ne w 20 minutes Ania Javed [facility] Start: 07-03-2023 End: 07-03-2023 Emergency department patient visit Jennie Ames Facility:[facility] Start: 07-03-2023 End: 07-03-2023 Emergency department patient visit DO Jennie Ames Work Phone: [facility] Work Phone: Start: 07-02-2023 End: 07-02-2023 Emergency department patient visit Bakari Chester [facility] Start: 06-10-2023 End: 06-10-2023 ambulatory EILEEN MANZANO Facility:[facility] Start: 06-09-2023 End: 06-09-2023 Emergency department patient visit Alexis Shukla Facility:[facility] Start: 06-03-2023 Refill Eileen Manzano MD Work Phone: Neurology Comment on above: Refill Request Start: 04-13-2023 ambulatory Lindy Keen Facility :[facility] Start: 03-19-2023 End: 03-19-2023 ambulatory MATERIALS SCIENTIST GANESH CORDERO Facility:[facility] Start: 03-19-2023 End: 03-19-2023 Patient encounter procedure GANESH CORDERO [facility] Start: 01-15-2023 End: 01-15-2023 Emergency department patient visit Bakari Chester [facility] Start: 01-02-2023 End: 01-02-2023 Patient encounter procedure Nakia Mcqueen [facility] Start: 12-12-2022 Refill Eileen Manzano MD Work Phone: Neurology Comment on above: Refill Request Start: 12-05-2022 End: 12-05-2022 Admission to same day surgery center Gal Das [facility] Start: 11-21-2022 End: 11-21-2022 Patient encounter procedure Gal Das [facility] Start: 11-20-2022 End: 11-20-2022 ambulatory EILEEN MANZANO Facility:[facility] Start: 11-20-2022 End: 11-20-2022 Patient encounter procedure Eileen Manzano MD Work Phone: Neurology Comment on above: Idiopathic intracran ial hypertension (Primary Dx); Depression, unspecified depression type; Primary hypertension; Hx of gastric bypass; H/O foot surgery Start: 11-03-2022 End: 11-03-2022 Patient encounter procedure Nakia Mcqueen [facility] Start: 10-30-2022 End: 10-30-2022 ambulatory STEFANIE SINGH . Facility: Start: 10-23-2022 End: 10-23-2022 Lab Drop off Gal Ngo Thiago [facility] Start: 10-14-2022 End: 10-14-2022 Patient encounter procedure Rita Loja [facility] Start: 09-24-2022 End: 09-24-2022 Patient encounter procedure Aimee Walker [facility] Start: 08-22-2022 End: 08-22-2022 Patient encounter procedure Rahul Salinas [facility] Start: 08-19-2022 End: 08-19-2022 ambulatory DO Jennie Ames Work Phone: [facility] Work Phone: Start: 08-19-2022 End: 08-19-2022 Patient encounter procedure DO Jennie Ames Work Phone: [facility] Start: 08-18-2022 End: 08-18-2022 ambulatory RAMSES MARTINEZ . Facility:[facility] Start: 08-18-2022 End: 08-18-2022 Emergency department patient visit Alexis Shukla [facility] Start: 08-16-2022 End: 08-16-[address] NEW DREW . Facility:[facility] Start: 08-12-2022 ambulatory Facility:9 0 Start: 08-11-2022 End: 08-12-2022 Evaluation and management of inpatient DO Jennie Ames Work Phone: [facility] Start: 08-11-2022 End: 08-12-2022 observation encounter DO Jennie Ames Work Phone: [facility] Work Phone: Start: 08-11-2022 End: 08-11-[address] WEI PHAM Facility:[facility] Start: 08-08-2022 End: 08-08-2022 Emergency department patient visit Bakari Chester [facility] Start: 07-21-2022 End: 07-21-2022 Patient encounter procedure Aimee Walker [facility] Start: 07-19-2022 End: 07-19-[address] DOCTOR CAMARILLO Facility:[facility] Start: 07-18-2022 Telephone encounter Eduin Mckee Plastic Surgery Comment on above: Appointment Start: 06-12-2022 End: 06-12-[address] CAROLYNE RALPH Facility:[facility] Start: 06-10-2022 End: 06-10-2022 Patient encounter procedure Alexis Rivers [facility] Start: 05-30-2022 End: 05-30-2022 ambulatory GABRIELA CAMARGO Facility:[facility] Start: 05-13-2022 End: 05-13-2022 Patient encounter procedure Alexis Rivers [facility] Start: 04-22-2022 End: 04-22-2022 Patient encounter procedure Aimee Walker [facility] Start: 04-21-2022 End: 04-21-2022 Patient encounter procedure Aimee Walker [facility] Start: 04-20-2022 End: 04-20-2022 Emergency department patient visit Jose Kaurelen [facility] Start: 04-07-2022 End: 04-07-[address] LADY ASNCHEZ . Facility:[facility] Start: 04-03-2022 End: 04-03-2022 Emergency department patient visit Larry Baker [facility] Start: 04-03-2022 End: 04-03-2022 Well adult monitoring check done Larry Baker [facility] Start: 02-12-2022 End: 02-12-2022 Patient encounter procedure Amee Gonzalez PA-C Work Phone: Otolaryngology Comment on above: Burning tongue (Prim masoud Dx); Irritation of oral cavity Start: 02-08-2022 End: 02-08-2022 ambulatory STEFANIE SINGH . Facility:[facility] Start: 02-06-2022 End: 02-06-2022 Patient encounter procedure Aimee Walker [facility] Start: 01-30-2022 End: 01-30-2022 ambulatory GABRIELA CAMARGO Facility:[facility] Start: 01-29-2022 End: 01-29-2022 Patient encounter procedure Aimee Walker [facility] Start: 01-27-2022 ambulatory Eduin Mckee MD Work Phone: Plastic Surgery Comment on above: questions Start: 01-10-2022 Telephone encounter Eduin marx MD Work Phone: Plastic Surgery Comment on above: Patient Question; Ap pointment Start: 01-09-2022 End: 01-09-2022 Patient encounter procedure Aimee Walker [facility] Start: 12-27-2021 Telephone encounter Eduin marx MD Work Phone: Plastic Surgery Comment on above: Orders Scheduling Start: 11-16-2021 End: 11-17-[address] WILEY ZABALA Facility:[facility] Start: 02-04-2021 End: 02-06-2021 Subsequent hospital visit by physician [facility] Cat Scan Room [facility] CT Scan Comment on above: Omental infarction ( HCC) Start: 01-30-2021 End: 02-01-2021 Evaluation and management of inpatient Berry Lawson MD Work Phone: [facility] 2C Ortho/Med Surg Comment on above: Surgery, elective (P rimary Dx); Omental infarction (HCC) Start: 01-30-2021 End: 01-30-2021 Emergency department patient visit David Nash MD Work Phone: [facility] ED Comment on above: Generalized abdomina l pain (Primary Dx) Start: 01-26-2021 End: 01-26-2021 Subsequent hospital visit by physician Gamaliel Harris DO Work Phone: [facility] 3C Med Surg Comment on above: Dehydration Start: 01-07-2021 End: 01-08-2021 Evaluation and management of inpatient Gamaliel Harris DO Work Phone: [facility] 2C Ortho/Med Surg Comment on above: Post-op pain (Primar y Dx) Start: 01-03-2021 End: 01-04-2021 ambulatory JENNIE AMES [facility] Start: 01-03-2021 End: 01-03-2021 Patient encounter status Staz Schedule EDGARDO Covid Scre ening Start: 01-03-2021 End: 01-03-2021 Subsequent hospital visit by physician Edgardo Covid Screening Schedule STAYomi Covid Screening Comment on above: Preop testing (Prima ry Dx) Start: 12-24-2020 End: 12-28-2020 Subsequent hospital visit by physician Christiane Salinas Xr [facility] Radiology Comment on above: Arrived Start: 11-01-2020 End: 11-03-2020 Subsequent hospital visit by physician Chaitanya Jett Radiologist [facility] Radiology Comment on above: Gastroesophageal ref lux disease with esophagitis without hemorrhage Start: 10-26-2020 End: 10-26-2020 Subsequent hospital visit by physician Memo Covid Screening Schedule MTHYomi Covid Screening Comment on above: Preoperative testing Start: 09-28-2020 End: 09-28-2020 Subsequent hospital visit by physician Gamaliel Harris Work Phone: [facility] [place] Start: 09-24-2020 End: 09-28-2020 Subsequent hospital visit by physician Chaitanya Mcclendon19 Pat Screening Schedule MTHZ PRE ADMIT Comment on above: Preoperative testing Start: 11-01-2015 Patient encounter procedure LINDYPRIYANKA COTE Facility:[facility] Procedures Date Procedure Procedure Detail Performing Clinician Start: 03-08-2024 H/O: hysterectomy History of hysterectomy Elia Baires DO Work Phone: Start: 03-08-2024 3d rendering w/interp&postproc diff work station Leonela Grossman MD Work Phone: Start: 03-08-2024 Mri abdomen w/o & w/contrast material Leonela Grossman MD Work Phone: Start: 01-04-2024 Drug tst prsmv instr mnt chem analyzers pr date Elia Baires DO Work Phone: Start: 12-10-2023 Plain chest X-ray DO Azeb Ames Work Phone: Start: 08-15-2023 Computed tomography of abdomen and pelvis with contrast DO Jennie Ames Work Phone: Start: 12-05-2022 Hysterectomy Gal Ochoa en Start: 08-12-2022 MRI of head DO Jennie carlos Work Phone: Start: 08-12-2022 MRI venography DO Jennie xie Work Phone: Start: 02-04-2021 Ct abdomen & pelvis w/contrast material Gamaliel Nirav ChinHarris DO Work Phone: Start: 02-01-2021 BASIC METABOLIC [...] Mckeon MD Work Phone: Start: 01-30-2021 Urinalysis microscop ic only David Nash MD Work Phone: Start: 01-30-2021 Urnls dip stick/tabl et rgnt auto w/o microscopy David Nash MD Work Phone: Start: 01-30-2021 Ct abdomen & pelvis w/contrast material David Nash MD Work Phone: Start: 01-30-2021 Assay of lipase David Nash MD Work Phone: Start: 01-30-2021 Lactate [Moles/volum e] in Serum or Plasma David Nahs MD Work Phone: Start: 01-08-2021 Radiologic exam esop hagus single contrast study Gamaliel Nirav Alee KDPOF Work Phone: Start: 01-08-2021 Basic metabolic pane l calcium total Gamaliel Gastelum Alee KDPOF Work Phone: Start: 01-07-2021 Basic metabolic pane l calcium total Gamaliel Gastelum Alee KDPOF Work Phone: Start: 01-07-2021 End: 01-07-2021 Laps gstr rstcv px w/byp tian-en-y limb <150 cm Gamaliel Gastelum Alee KDPOF Work Phone: Start: 01-07-2021 Urine test visual color cmprsn meths Gamaliel Harris KDPOF Work Phone: Start: 12-24-2020 Assay of nicotine Enmanuel mortensen Nirav ChinHarris DO Work Phone: Start: 12-24-2020 Basic metabolic pane l calcium total Gamaliel Gastelum Alee KDPOF Work Phone: Start: 12-24-2020 Radiologic exam ches t 2 views Gamaliel Harris Work Phone: Start: 12-24-2020 Ecg routine ecg w/le ast 12 lds trcg only w/o i&r Gamaliel Gastelum Alee KDPOF Work Phone: Start: 12-24-2020 EKG REPORT Hpf Scanni ng Start: 11-01-2020 Radex upper gi w/wo glucagon/delay imges w/o kub Gamaliel Gastelum Harris Work Phone: Start: 09-24-2020 COVID-19 Nima nathan Work Phone: Start: 02-16-2020 Endoscopic plantar fasciotomy [...] Treatment Date Care Activity Detail Author Start: 03-08-2025 Annual PCP Team Chronic Disease Visit Annual PCP Team Chronic Disease Visit [facility] Start: 03-08-2025 BP Controlled (<130/80) BP Controlled (<130/80) [facility] Start: 03-08-2025 Urine microalbumin profile DTaP,Tdap,Td Vaccine (1 - Tdap) [facility] Comment on above: Postponed from 12/18/2007 (Declined at t his time) Start: 01-03-2025 Annual PCP Team Chronic Disease Visit Annual PCP Team Chronic Disease Visit [facility] Start: 08-05-2024 End: 08-05-2024 ambulatory [facility] Comment on above: Fhx of pancreatic cancer, Phx of pancrea tic mass Action taken: Marked in [employer] for Schedulers Start: 05-24-2024 End: 05-24-2024 Patient encounter procedure 05/24/2024 11:15 AM EDT Office Visit Endocrinology [address] [place] [address] Austin Leon, CEDRIC.LANE ATTENDANT [address] [place] [address] Class 1 obesity due to excess calories without serious comorbidity with body ma Endocrinology Comment on above: Class 1 obesity due to excess calories w ithout serious comorbidity with body ma Start: 05-15-2024 Influenza vaccination Influenza Vaccine (Season Ended) [facility] Start: 03-01-2024 End: 03-01-2024 Patient encounter procedure 03/01/2024 11:20 AM EDT Appointment Radiology [address] [place] [address] MRI Panc/[facility] Comment on above: MRI Panc/Tanmay [facility] Start: 01-06-2024 End: 01-06-2024 ambulatory 01/06/2024 8:30 AM EDT Results Only [facility] [address] [place] [address] [place] [address] [facility] Start: 01-04-2024 End: 04-04-2024 CBC panel - Blood by Automated count COMPLETE BLOOD COUNT Lab Routine Routine health maintenance Expected: 01/04/2024, Expires: 04/04/2024 [facility] Work Phone: Comment on above: Expected: 01/04/2024, Expires: Start: 01-04-2024 End: 04-04-2024 Comprehensive metabolic 2000 panel - Serum or Plasma COMPREHENSIVE METABOLIC PANEL Lab Routine Routine health maintenance Expected: 01/04/2024, Expires: 04/04/2024 [facility] Comment on above: Expected: 01/04/2024, Expires: Start: 01-04-2024 End: 04-04-2024 Hemoglobin A1c in Blood HEMOGLOBIN A1C Lab Routine Routine health maintenance Expected: 01/04/2024, Expires: 04/04/2024 [facility] Comment on above: Expected: 01/04/2024, Expires: Start: 01-04-2024 End: 04-04-2024 Hepatitis C virus Ab [Presence] in Serum HEPATITIS C ANTIBODY IA WITH CONFIRMATION Lab Routine Routine health maintenance Expected: 01/04/2024, Expires: 04/04/2024 [facility] Comment on above: Expected: 01/04/2024, Expires: Start: 01-04-2024 End: 04-04-2024 HIV 1+2 Ab [Presence] in Serum or Plasma by Immunoassay HIV 1/2 COMBO WITH REFLEX TO DIFFERENTIATION Lab Routine Routine health maintenance Expected: 01/04/2024, Expires: 04/04/2024 [facility] Comment on above: Expected: 01/04/2024, Expires: Start: 01-04-2024 End: 04-04-2024 Lipid 1996 panel - Serum or Plasma LIPID PANEL BASIC Lab Routine Routine health maintenance Expected: 01/04/2024, Expires: 04/04/2024 [facility] Comment on above: Expected: 01/04/2024, Expires: Start: 12-10-2023 [facility] Start: 09-18-2023 End: 09-18-2023 Egd transoral biopsy single/multiple EGD BIOPSY Gastroesophageal reflux disease, unspecified whether esophagitis present Obesity (BMI 30-39.9) 09/18/2023 8:14 AM [facility] Start: 05-15-2023 COVID-19 Vaccine ( season) COVID-19 Vaccine ( season) [facility] Start: 05-15-2023 Influenza vaccination Influenza Vaccine (#1) [facility] Start: 04-14-2023 Influenza vaccination Flu vaccine (#1) [facility] Start: 08-19-2022 Cerebrospinal fluid culture [facility] Start: 08-19-2022 End: 08-19-2022 [facility] Start: 08-12-2022 [facility] Start: 08-12-2022 Glucose [Mass/volume] in Cerebral spinal fluid [facility] Start: 08-12-2022 Protein [Mass/volume] in Cerebral spinal fluid [facility] Start: 08-12-2022 [facility] Start: 08-11-2022 Hospital admission [facility] Start: 08-11-2022 Referral to neurologist [facility] Start: 08-11-2022 [facility] Start: 05-15-2022 Influenza vaccination [facility] Start: 09-29-2021 COVID-19 VACCINE (3 - Booster for Pfizer series) COVID-19 VACCINE (3 - Booster for Pfizer series) [facility] Start: 09-14-2021 DEPRESSION ASSESSMENT DEPRESSION ASSESSMENT [facility] Start: 06-24-2021 COVID-19 VACCINE (3 - Booster for Pfizer series) COVID-19 VACCINE (3 - Booster for Pfizer series) [facility] Start: 06-24-2021 Covid-19 Vaccine (3 - Pfizer series) Covid-19 Vaccine (3 - Pfizer series) [facility] Start: 03-06-2021 End: 03-06-2021 Patient encounter procedure 03/06/2021 Office Visit Gamaliel Mistry DO [address] [place] [id number] [facility] Invasive Bariatric Surg Start: 02-20-2021 End: 02-20-2021 Patient encounter procedure 02/20/2021 Office Visit Gamaliel Mistry DO [address] [place] [id number] [facility] Part [facility] Start: 01-18-2021 End: 01-18-2021 Office Visit 01/18/2021 Office Visit Gamaliel Mistry DO [address] [place] [id number] [facility] Invasive Bariatric Surg Start: 01-07-2021 End: 01-07-2021 Hospital Encounter [facility] OR Comment on above: XI LAPAROSCOPIC ROBOTIC GASTRIC BYPASS R OUX-EN-Y, LIVER BIOPSY, EGD- GI UNIT SCHEDULED. Start: 01-03-2021 End: 01-03-2021 Office Visit [facility] Invasive Bariatric Surg Comment on above: Arrived Start: 12-31-2020 End: 12-31-2021 COVID-19 COVID-19 Lab Routine Preop testing Expected: 12/31/2020, Expires: 12/31/2021 [employer] Phone: Comment on above: Expected: 12/31/2020, Expires: Start: 11-21-2020 End: 11-21-2020 Office Visit 11/21/2020 Office Visit Bariatrics Gil Ganesh Isreal, CASH [employer]OP FARMER - LANE ATTENDANT [address] [place] [address] [facility] BARIATRIC Part [facility] Start: 11-01-2020 End: 11-01-2020 Appointment 11/01/2020 Appointment Radiology Radiologist, [facility] Radiology Start: 10-24-2020 End: 10-24-2020 Office Visit [facility] Part [facility] Start: 09-26-2020 Annual Wellness Visit (AWV) Annual Wellness Visit (AWV) [place] Start: 2018 HPV TESTING HPV TESTING [facility] Start: 2018 Screening for malignant neoplasm of cervix [facility] Start: 2009 PAP TESTING PAP TESTING [facility] Start: 2009 Screening for malignant neoplasm of cervix [facility] Start: 12-18-2007 DTaP/Tdap/Td vaccine (1 - Tdap) DTaP/Tdap/Td vaccine (1 - Tdap) [facility]ERS[facility] Start: 12-18-2007 Urine microalbumin profile [facility] Start: 2006 ANNUAL PCP TEAM CHRONIC DISEASE VISIT ANNUAL PCP TEAM CHRONIC DISEASE VISIT [facility] Start: 2006 BP CONTROLLED (<130/80) BP CONTROLLED (<130/80) [facility] Start: 2006 HEPATITIS C SCREENING HEPATITIS C SCREENING [facility] Start: 2006 Hepatitis C screening [facility] Start: 2006 HIV SCREENING HIV SCREENING [facility] Start: 2006 HIV screening HIV Screening [facility] Start: 2004 COVID-19 Vaccine (1) COVID-19 Vaccine (1) [employer] Phone: Start: 12-18-2003 HIV screening HIV screen [facility] Start: 2000 Adult depression screening assessment DEPRESSION SCREENING [facility] Start: 2000 COVID-19 Vaccine (1) COVID-19 Vaccine (1) [facility] Work Phone: Start: 2000 Depression Monitoring Depression Monitoring [facility] [employer] Start: 12-10-2000 Hepatitis B Vaccine (2 of 3 - 3-dose series) Hepatitis B Vaccine (2 of 3 - 3-dose series) [facility] Start: 1994 PNEUMOCOCCAL (1 - PCV) PNEUMOCOCCAL (1 - PCV) [facility] Start: 1994 Pneumococcal 0-64 years Vaccine (1 - PCV) Pneumococcal 0-64 years Vaccine (1 - PCV) [facility] Start: 1994 Pneumococcal vaccination [facility] Start: 1989 Varicella vaccine (1 of 2 - 2-dose childhood series) Varicella vaccine (1 of 2 - 2-dose childhood series) [facility] Start: 1988 HEPATITIS B (1 of 3 - 3-dose series) HEPATITIS B (1 of 3 - 3-dose series) [facility] Start: 1988 Hepatitis B Vaccine (1 of 3 - 3-dose series) Hepatitis B Vaccine (1 of 3 - 3-dose series) [facility] Start: 1988 Hepatitis C screening Hepatitis C screen [facility] [place], [place] Bacteria identified in Unspecified specimen by Aerobe culture [facility] Work Phone: Bacteria identified in Unspecified specimen by Anaerobe culture [facility] Work Phone: Basic Metabolic Pane l w/ Reflex to MG Basic Metabolic Panel w/ Reflex to MG Lab Routine Daily until discontinued starting 02/01/2021, 1 completed [facility] Work Phone: Comment on above: Daily until discontinued starting 2020, 1 completed End: 09-18-2023 Blood glucose - POCT Blood glucose - POCT Point of Care Testing Routine One Time for 1 Occurrences starting 09/18/2023 until 09/18/2023 [facility] [employer] [facility] Comment on above: One Time for 1 Occurrences starting 01/2024 until 09/18/2023 CANNABINOID CONF, UR CANNABINOID CONF, UR Lab Routine Panic disorder 01/04/2024 10:20 AM EDT [facility] Cell count, cerebrospinal fluid [facility] Work Phone: Cerebrospinal fluid examination [facility] Work Phone: Continuous pulse oximetry Pulse oximetry, continuous Respiratory Care Routine Every 4hr until discontinued starting 01/07/2021 [employer] Work Phone: Comment on above: Every 4hr until discontinued starting End: 10-26-2020 COVID-19 COVID-19 Lab Routine Preoperative testing 1 Occurrences starting 10/26/2020 until 10/26/2020 [employer] Work Phone: Comment on above: 1 Occurrences starting 10/26/2020 until 10/26/2020 COVID-19 [employer] Work Phone: End: 01-03-2021 COVID-19 COVID-19 Lab Routine Preop testing 1 Occurrences starting 01/03/2021 until 01/03/2021 [employer] Work Phone: Comment on above: 1 Occurrences starting 01/03/2021 until 01/03/2021 Evaluation of cerebrospinal fluid [facility] Work Phone: Fluid sample volume measurement [facility] Work Phone: Glucose [Mass/volume ] in Cerebral spinal fluid [facility] Work Phone: End: 09-18-2023 INITIATE PACU OXYGEN THERAPY PROTOCOL Initiate PACU Oxygen Therapy Protocol Respiratory Care Routine Continuous until discontinued starting 09/18/2023 [facility] Comment on above: Continuous until discontinued starting 0 09/18/2023 Meningitis+Encephali ti s pathogens DNA and RNA panel - Cerebral spinal fluid by JOSÉ MIGUEL with non-probe detection [facility] Work Phone: Microscopic observation [Identifier] in Unspecified specimen by Gram stain [facility] Work Phone: End: 04-07-2025 MR Breast - left WO and W contrast IV MRI BREAST BX WO/W IVCON LEFT Radiology Routine Mass of upper outer quadrant of left breast 1 Occurrences starting 03/08/2024 until 04/07/2025 [facility] Work Phone: Comment on above: 1 Occurrences starting 03/08/2024 until 04/07/2025 End: 12-20-2023 Mra head w/o & w/contrast material MRV BRAIN WO/W IVCON Radiology Routine Idiopathic intracranial hypertension 1 Occurrences starting 11/20/2022 until 12/20/2023 [facility] Work Phone: Comment on above: 1 Occurrences starting 11/20/2022 until 12/20/2023 Nebulizer therapy HHN Treatment Respiratory Care Routine TID until discontinued starting 01/07/2021 [facility] Work Phone: Comment on above: TID until discontinued starting 01/08/20 21 Nucleated cells [#/volume] in Cerebral spinal fluid by Manual count [facility] Work Phone: Oxygen therapy [Minimum Data Set] [facility] Comment on above: Daily until discontinued starting 2020 Daily until disconti nued starting 01/07/2021 Daily until disconti nued starting 01/31/2021 Oxygen therapy [Minimum Data Set] Initiate Oxygen Therapy Protocol Respiratory Care Routine As Needed until discontinued starting 09/18/2023 [facility] [employer] Work Phone: Comment on above: As Needed until discontinued starting Patient Education [facility] Work Phone: Patient referral [facility] Work Phone: Phase I & II - meter ed glucose Phase I & II - metered glucose Point of Care Testing Routine As Needed until discontinued starting 09/28/2020 [employer] Comment on above: As Needed until discontinued starting End: 09-28-2020 , urine POCT , urine POCT Point of Care Testing Routine One Time for 1 Occurrences starting 09/28/2020 until 09/28/2020 [facility] Comment on above: One Time for 1 Occurrences starting 09/14 until 09/28/2020 End: 09-18-2023 , urine POCT , urine POCT Point of Care Testing Routine One Time for 1 Occurrences starting 09/18/2023 until 09/18/2023 [facility] Comment on above: One Time for 1 Occurrences starting 01/2024 until 09/18/2023 Protein [Mass/volume ] in Cerebral spinal fluid [facility] Work Phone: Red blood cell count [facility] Work Phone: SPECIMEN VALIDITY, URINE SPECIMEN VALIDITY, URINE Lab Routine Panic disorder 01/04/2024 10:20 AM EDT [facility] Spirometry panel Incentive pete metry Respiratory Care Routine Every 2hr while awake until discontinued starting 01/07/2021 [facility] Work Phone: Comment on above: Every 2hr while awake until discontinued starting 01/07/2021 Surgical Pathology Surgical Path ology Lab Routine Release Upon Ordering for 1 Occurrences starting 09/28/2020 [facility] [place] Comment on above: Release Upon Ordering for 1 Occurrences starting 09/28/2020 [facility] Immunizations Immunization Date Immunization Notes Care Provider Jayme penaloza 04-29-2021 SARS-CoV-2 (COVID-19 ) mRNA BNT-162b2 vax Aimee Walker [facility] 04-08-2021 SARS-CoV-2 (COVID-19 ) mRNA BNT-162b2 vax Aimee Walker [facility] 07-23-2020 influenza virus vaccine, unspecified formulation Eileen Manzano MD Work Phone: [facility] 07-09-2020 influenza nasal, unspecified formulation Elia Baires DO Work Phone: [facility] 07-09-2020 influenza virus vaccine, unspecified formulation Aimee Walker [facility] 07-09-2020 influenza, injectable, quadrivalent, preservative free Elia Baires DO Work Phone: [facility] 11-12-2000 hepatitis B vaccine, pediatric or pediatric/adolescent dosage Elia Mechelle DO Work Phone: [facility] 11-12-2000 measles, mumps and rubella virus vaccine Elia Mechelle DO Work Phone: [facility] NEGATED: Highlighted row has not occurred!07-21-2022 influenza virus vaccine, unspecified formulation Aimee Walker [facility] Payers Date Payer Category Payer Unknown 2023 Medicare [id number] 2021 Medicaid MEDICAID [facility] MEDICAID [id number] 2021-Present [phone] [address] [place] [address] Medicaid [id number] 2021 Medicaid [id number] 2021 Medicare HUMANA MEDICARE HUMANA MEDICARE PPO [id number] 2021-Present [phone] [address] [address] [place] [address] PPO [id number] 2021 Medicare [id number]. [id number] .[id number] 2020 Medicare [id number] 1.2.840.109598.1.13.239.2.7 .[id number] 1988 Unknown [id number] 2.16.840.1.848658.3.579.2.7 32 1988 Unknown [id number] 2.16.840.1.363900.3.579.2.1 77 1988 Unknown [id number] 2.16.840.1.313183.3.579.2.3 56 1988 Unknown [id number] 2.16.840.1.424599.3.579.2.5 93 1988 Unknown [id number] 2.16.840.1.665812.3.579.2.5 93 1988 Unknown [id number] 2.16.840.1.413018.3.579.2.5 93 1988 Unknown [id number] 2.16.840.1.550393.3.579.2.5 93 1988 Unknown [id number] 2.16.840.1.553034.3.579.2.5 93 1988 Unknown [id number] 2.16.840.1.453871.3.579.2.5 93 1988 Unknown [id number] 2.16.840.1.346982.3.579.2.5 93 1988 Unknown [id number] 2.16.840.1.264018.3.579.2.5 93 1988 Unknown [id number] 2.16.840.1.024214.3.579.2.5 93 1988 Unknown [id number] 2.16.840.1.540187.3.579.2.5 93 1988 Unknown [id number] 2.16.840.1.481208.3.579.2.5 93 1988 Unknown [id number] 2.16.840.1.294215.3.579.2.1 73 1988 Unknown [id number] 2.16.840.1.502937.3.579.2.1 73 1988 Unknown [id number] 2.16.840.1.101338.3.579.2.1 74 1988 Unknown [id number] 2.16.840.1.320882.3.579.2.1 74 1988 Unknown [id number] 2.16.840.1.393484.3.579.2.1 74 1988 Unknown [id number] 2.16.840.1.110728.3.579.2.1 75 1988 Unknown [id number] 2.16.840.1.106469.3.579.2.1 75 1988 Unknown [id number] 2.16.840.1.452184.3.579.2.7 27 1988 Unknown [id number] 2.16.840.1.427757.3.579.2.7 27 1988 Unknown [id number] 2.16.840.1.533142.3.579.2.7 27 1988 Unknown [id number] 2.16.840.1.036103.3.579.2.7 27 1988 Unknown [id number] 2.16.840.1.098305.3.579.2.7 27 1988 Unknown [id number] 2.16.840.1.168686.3.579.2.7 27 1959 Medicaid [id number] 1.2.840.697552.1.13.239.2.7 .3.245441.315 1959 Private Health Insurance [id number] Self-pay [id number] Medicare Medicare [id number] Private Health Insurance Aetna MCR PFFS M [id number] Unknown [id number] 2.16.840.1.544278.3.579.2.5 31 Unknown [id number] 2.16.840.1.475623.3.579.2.5 31 Unknown [id number] 2.16.840.1.248035.3.579.2.5 31 Unknown [id number] 2.16.840.1.178064.3.579.2.5 31 Unknown [id number] 2.16.840.1.841915.3.579.2.5 31 Unknown [id number] 2.16.840.1.855948.3.579.2.5 31 Unknown [id number] 2.16.840.1.179945.3.579.2.5 31 Social History Date Type Detail Facility Start: 09-28-2020 End: 01-29-2022 Tobacco smoking status NHIS Former smoker [place] Start: 08-12-2022 End: 12-31-2023 History of tobacco use Current smoker [place] Start: 09-28-2020 End: 03-08-2024 Tobacco use and exposure Never used [place] Start: 09-28-2020 End: 03-08-2024 Alcohol intake Current drinker of alcohol (finding) [place] Start: 09-28-2020 End: 07-03-2022 History SDOH Alcohol Frequency 1 [place] Start: 09-28-2020 Alcohol Comment rare [place] Start: 1990 Sex Assigned At Not on file [place] Start: 12-16-2021 End: 02-06-2022 Exposure to SARS-CoV-2 (event) Not sure [place] End: 03-14-2020 History of tobacco use Cigarette Smoker [facility] [employer] Phone: Start: 09-28-2020 Alcohol Comment rare [facility] [employer] Phone: Start: 12-26-2021 End: 03-08-2024 Tobacco smoking status NHIS Smokes tobacco daily [facility] Start: 12-26-2021 End: 02-27-2023 Cigarettes smoked current (pack per day) - Reported 1 [facility] Start: 03-18-2010 History SDOH Alcohol Comment beer and wine once a month [facility] Start: 07-01-2021 End: 11-03-2022 Tobacco smoking status Heavy tobacco smoker (finding) [facility] Tobacco smoking status Never [facility] Start: 07-03-2022 End: 02-27-2023 Sex Assigned At Female [facility] Start: 1990 Sex Assigned At Female [facility] Start: 07-03-2022 History SDOH Alcohol Frequency 5 [facility] Start: 07-03-2022 History SDOH Alcohol Std Drinks 4 [facility] Start: 07-03-2022 History SDOH Social Connections Get Together 2 [facility] Start: 07-03-2022 History SDOH Social Connections Living 3 [facility] Do you belong to any clubs or organizations such as restoration groups, unions, fraternal or athletic groups, or school groups? No [facility] Are you now , , , , never or living with a partner? [facility] How often to you hav e a drink containing alcohol? 4 or more times a week [facility] How many standard dr inks containing alcohol do you have on a typical day? 7 to 9 [facility] How often do you hav e 6 or more drinks on 1 occasion? Daily or almost daily [facility] How hard is it for y ou to pay for the very basics like food, housing, medical care, and heating Not very hard [facility] Do you feel stress - tense, restless, nervous, or anxious, or unable to sleep at night because your mind is troubled all the time - these days [OSQ] To some extent [facility] (I/We) worried iqra er (my/our) food would run out before (I/we) got money to buy more. Sometimes true [facility] The food that (I/we) bought just didn't last, and (I/we) didn't have money to get more. Never true [facility] Start: 01-13-2022 Gender identity Identifies as female gender (finding) [facility] Start: 02-06-2022 Sexual orientation Heterosexual (finding) [facility] How often to you hav e a drink containing alcohol? Never [facility]ERS[facility] Start: 12-10-2023 Tobacco smoking status NHIS Never smoked tobacco (finding) [facility] Do you feel stress - tense, restless, nervous, or anxious, or unable to sleep at night because your mind is troubled all the time - these days [OSQ] Only a little [facility] Functional Status Date Assessment Result Facility 03-08-2024 Functional Status N/A [facility] 07-02-2023 Functional Status N/A [facility] 01-15-2023 Functional Status N/A [facility] 11-21-2022 Functional Status No [facility] 11-03-2022 Functional Status N/A [facility] 09-24-2022 Functional Status N/A [facility] 08-22-2022 Functional Status N/A [facility] 08-18-2022 Functional Status N/A [facility] 08-12-2022 Functional status Patient at Baseline [facility] Work Phone: 08-08-2022 Functional Status N/A [facility] 07-21-2022 Functional Status N/A [facility] 04-21-2022 Functional Status N/A [facility] 04-20-2022 Functional Status N/A [facility] 04-03-2022 Functional Status N/A [facility] Mental Status Date Assessment Result Facility 08-12-2022 Cognitive function Cognitive Sta tus Patient at Baseline [facility] Work Phone: Clinical Notes 12-24-2020 to 03-08-2024 Sofia Benavidez, RN - 03/08/2024 10:00 AM Mirlande Long, liquid chlorine operator - 03/08/2024 10:00 AM EDTPatient InstructionsElia Baires, - 03/08/2024 8:16 AM EDTPatient Instructions Note Date & Type Note Facility 03-08-2024 Hospital Discharge instructions Patient Education 03/08/2024 15:36:59 Lumbosacral Strain Lumbosacral Strain Lumbosacral strain is an injury that causes pain in the lower back (lumbosacral spine). This injury usually happens from overstretching the muscles or ligaments along your spine. Ligaments are cord-like tissues that connect bones to other bones. A strain can affect one or more muscles or ligaments. What are the causes? This condition may be caused by: A hard, direct hit to the back. Overstretching the lower back muscles. This may result from: ?A fall. ?Lifting something heavy. ?Repetitive movements such as bending or crouching. What increases the risk? The following factors may make you more likely to develop this condition: Participating in sports or activities that involve: ?A sudden twist of the back. ?Pushing or pulling motions. Being overweight or obese. Having poor strength and flexibility, especially tight hamstrings or weak muscles in the back or abdomen. Having too much of a curve in the lower back. Having a pelvis that is tilted forward. What are the signs or symptoms? The main symptom of this condition is pain in the lower back, at the site of the strain. Pain may also be felt down one or both legs. How is this diagnosed? This condition is diagnosed based on your symptoms, your medical history, and a physical exam. During the physical exam, your health care provider may push on certain areas of your back to find the source of your pain. You may be asked to bend forward, backward, and side to side to check your pain and range of motion. You may also have imaging tests, such as X-rays and an MRI. How is this treated? This condition may be treated by: Applying heat and cold on the affected area. Taking medicines to help relieve pain and relax your muscles. Taking NSAIDs, such as ibuprofen, to help reduce swelling and discomfort. Doing stretching and strengthening exercises for your lower back. Symptoms usually improve within several weeks of treatment. However, recovery time varies. When your symptoms improve, gradually return to your normal routine as soon as possible to reduce pain, avoid stiffness, and keep muscle strength. Follow these instructions at home: Medicines Take nnlm-dqq-igxbfrf and prescription medicines only as told by your health care provider. Ask your health care provider if the medicine prescribed to you: ?Requires you to avoid driving or using heavy machinery. ?Can cause constipation. You may need to take these actions to prevent or treat constipation: ?Drink enough fluid to keep your urine pale yellow. ?Take flmh-rfs-uictnqd or prescription medicines. ?Eat foods that are high in fiber, such as beans, whole grains, and fresh fruits and vegetables. ?Limit foods that are high in fat and processed sugars, such as fried or sweet foods. Managing pain, stiffness, and swelling If directed, put ice on the injured area. To do this: ?Put ice in a plastic bag. ?Place a towel between your skin and the bag. ?Leave the ice on for 20 minutes, 2 3 times a day. If directed, apply heat on the affected area as often as told by your health [...] have a greater risk of getting burned. Activity Rest as told by your health care provider. Do not stay in bed. Staying in bed for more than 1 2 days can delay your recovery. Return to your normal activities as told by your health care provider. Ask your health care provider what activities are safe for you. Avoid activities that take a lot of energy for as long as told by your health care provider. Do exercises as told by your health care provider. This includes stretching and strengthening exercises. General instructions Sit up and stand up straight. Avoid leaning forward when you sit, or hunching over when you stand. Do not use any products that contain nicotine or tobacco, such as cigarettes, e-cigarettes, and chewing tobacco. If you need help quitting, ask your health care provider. Keep all follow-up visits as told by your health care provider. This is important. How is this prevented? Use correct form when playing sports and lifting heavy objects. Use good posture when sitting and standing. Maintain a healthy weight. Sleep on a mattress with medium firmness to support your back. Do at least 150 minutes of moderate-intensity exercise each week, such as brisk walking or water aerobics. Try a form of exercise that takes stress off your back, such as swimming or stationary cycling. Maintain physical fitness, including: ?Strength. ?Flexibility. Contact a health care provider if: Your back pain does not improve after several weeks of treatment. Your symptoms get worse. Get help right away if: Your back pain is severe. You cannot stand or walk. You have difficulty controlling when you urinate or when you have a bowel movement. You feel nauseous or you vomit. Your feet or legs get very cold, turn pale, or look blue. You have numbness, tingling, weakness, or problems using your arms or legs. You develop any of the following: ?Shortness of breath. ?Dizziness. ?Pain in your legs. ?Weakness in your buttocks or legs. Summary Lumbosacral strain is an injury that causes pain in the lower back (lumbosacral spine). This injury usually happens from overstretching the muscles or ligaments along your spine. This condition may be caused by a direct hit to the lower back or by overstretching the lower back muscles. Symptoms usually improve within several weeks of treatment. This information is not intended to replace advice given to you by your health care provider. Make sure you discuss any questions you have with your health care provider. Document Revised: 12/08/2022 Document Reviewed: 01/24/2020 [employer] 2022 [employer]. 03/08/2024 15:36:59 Head Injury, Adult Head Injury, Adult There are many types of head injuries. Head injuries can be as minor as a small bump, or they can be a serious medical issue. More severe head injuries include: A jarring injury to the brain (concussion). A bruise (contusion) of the brain. This means there is bleeding in the brain that can cause swelling. A cracked skull (skull fracture). Bleeding in the brain that collects, clots, and forms a bump (hematoma). After a head injury, most problems occur within the first 24 hours, but side effects may occur up to 7 10 days after the injury. It is important to watch your condition for any changes. You may need to be observed in the emergency department or urgent care, or you may be admitted to the hospital. What are the causes? There are many possible causes of a head injury. Serious head injuries may be caused by car accidents, bicycle or motorcycle accidents, sports injuries, falls, or being struck by an object. What are the symptoms? Symptoms of a head injury include a contusion, bump, or bleeding at the site of the injury. Other physical symptoms may include: Headache. Nausea or vomiting. Dizziness. Blurred or double vision. Being uncomfortable around bright lights or loud noises. Seizures. Feeling tired. Trouble being awakened. Loss of consciousness. Mental or emotional symptoms may include: Irritability. Confusion and memory problems. Poor attention and concentration. Changes in eating or sleeping habits. Anxiety or depression. How is this diagnosed? This condition can usually be diagnosed based on your symptoms, a description of the injury, and a physical exam. You may also have imaging tests done, such as a CT scan or an MRI. How is this treated? Treatment for this condition depends on the severity and type of injury you have. The main goal of treatment is to prevent complications and allow the brain time to heal. Mild head injury If you have a mild head injury, you may be sent home, and treatment may include: Observation. A responsible adult should stay with you for 24 hours after your injury and check on you often. Physical rest. Brain rest. Pain medicines. Severe head injury If you have a severe head injury, treatment may include: Close observation. This includes hospitalization with the following care: ?Frequent physical exams. ?Frequent checks of how your brain and nervous system are working (neurological status). ?Checking your blood pressure and oxygen levels. Medicines to relieve pain, prevent seizures, and decrease brain swelling. Airway protection and breathing support. This may include using a ventilator. Treatments that monitor and manage swelling inside the brain. Brain surgery. This may be needed to: ?Remove a collection of blood or blood clots. ?Stop the bleeding. ?Remove a part of the skull to allow room for the brain to swell. Follow these instructions at home: Activity Rest and avoid activities that are physically hard or tiring. Make sure you get enough sleep. Let your brain rest by limiting activities that require a lot of thought or attention, such as: ?Watching TV. ?Playing memory games and puzzles. ?Job-related work or homework. ?Working on the computer, using social media, and texting. Avoid activities that could cause another head injury, such as playing sports, until your health care provider approves. Having another head injury, especially before the first one has healed, can be dangerous. Ask your health care provider when it is safe for you to return to your regular activities, including work or school. Ask your health care provider for a lpcy-zc-mlfg plan for gradually returning to activities. Ask your health care provider when you can drive, ride a bicycle, or use heavy machinery. Your ability to react may be slower after a brain injury. Do not do these activities if you are dizzy. Lifestyle Do not drink alcohol until your health care provider approves. Do not use drugs. Alcohol and certain drugs may slow your recovery and can put you at risk of further injury. If it is harder than usual to remember things, write them down. If you are easily distracted, try to do one thing at a time. Talk with family members or close friends when making important decisions. Tell your friends, family, a trusted colleague, and forming process worker about your injury, symptoms, and restrictions. Have them watch for any new or worsening problems. General instructions Take owlb-fju-[id number] and prescription medicines only as told by your health care provider. Have someone stay with you for 24 hours after your head injury. This person should watch you for any changes in your symptoms and be ready to seek medical help. Keep all follow-up visits as told by your health care provider. This is important. How is this prevented? Work on improving your balance and strength to avoid falls. Wear a seat belt when you are in a moving vehicle. Wear a helmet when riding a bicycle, skiing, or doing any other sport or activity that has a risk of injury. If you drink alcohol: ?Limit how much you use to: ?0 1 drink a day for non women. ?0 2 drinks a day for men. ?Be aware of how much alcohol is in your drink. In the [place] one drink equals one 12 oz bottle of beer (355 mL), one 5 oz glass of wine (148 mL), or one 1 oz glass of hard liquor (44 mL). Take safety measures in your home, such as: ?Removing clutter and tripping hazards from floors and stairways. ?Using grab bars in bathrooms and handrails by stairs. ?Placing non-slip mats on floors and in bathtubs. ?Improving lighting in dim areas. Where to find more information Centers for Disease Control and Prevention: www.cdc.gov Get help right away if: You have: ?A severe headache that is not helped by medicine. ?Trouble walking or weakness in your arms and legs. ?Clear or bloody fluid coming from your nose or ears. ?Changes in your vision. ?A seizure. ?Increased confusion or irritability. Your symptoms get worse. You are sleepier than normal and have trouble staying awake. You lose your balance. Your pupils change size. Your speech is slurred. Your dizziness gets worse. You vomit. These symptoms may represent a serious problem that is an emergency. Do not wait to see if the symptoms will go away. Get medical help right away. Call your local emergency services (911 in the [place] Do not drive yourself to the hospital. Summary Head injuries can be minor, or they can be a serious medical issue requiring immediate attention. Treatment for this condition depends on the severity and type of injury you have. Have someone stay with you for 24 hours after your injury and check on you often. Ask your health care provider when it is safe for you to return to your regular activities, including work or school. Head injury prevention includes wearing a seat belt in a motor vehicle, using a helmet on a bicycle, limiting alcohol use, and taking safety measures in your home. This information is not intended to replace advice given to you by your health care provider. Make sure you discuss any questions you have with your health care provider. Document Revised: 07/13/2020 Document Reviewed: 07/13/2020 [employer] Patient Education 2022 [employer] 03/08/2024 15:36:59 Muscle Strain Muscle Strain A muscle strain is an injury that occurs when a muscle is stretched beyond its normal length. Usually, a small number of muscle fibers are torn when this happens. There are three types of muscle strains. First-degree strains have the least amount of muscle fiber tearing and the least amount of pain. Second-degree and third-degree strains have more tearing and pain. Usually, recovery from muscle strain takes 1 2 weeks. Complete healing normally takes 5 6 weeks. What are the causes? This condition is caused when a sudden, violent force is placed on a muscle and stretches it too far. This may occur with a fall, while lifting, or during sports. What increases the risk? This condition is more likely to develop in athletes and people who are physically active. What are the signs or symptoms? Symptoms of this condition include: Pain. Tenderness. Bruising. Swelling. Trouble using the muscle. How is this diagnosed? This condition is diagnosed based on a physical exam and your medical history. Tests may also be done, including an X-ray, ultrasound, or MRI. How is this treated? This condition is initially treated with ALEGRE therapy. This therapy involves: Protecting the muscle from being injured again. Resting the injured muscle. Icing the injured muscle. Applying pressure (compression) to the injured muscle. This may be done with a splint or elastic bandage. Raising (elevating) the injured muscle. Your health care provider may also recommend medicine for pain. Follow these instructions at home: If you have a removable splint: Wear the splint as told by your health care provider. Remove it only as told by your health care provider. Check the skin around the splint every day. Tell your health care provider about any concerns. Loosen the splint if your fingers or toes tingle, become numb, or turn cold and blue. Keep the splint clean. If the splint is not waterproof: ?Do not let it get wet. ?Cover it with a watertight covering when you take a bath or a shower. Managing pain, stiffness, and swelling If directed, put ice on the injured area. To do this: ?If you have a removable splint, remove it as told by your health care provider. ?Put ice in a plastic bag. ?Place a towel between your skin and the bag. ?Leave the ice on for 20 minutes, 2 3 times a day. ?Remove the ice if your skin turns bright red. This is very important. If you cannot feel pain, heat, or cold, you have a greater risk of damage to the area. Move your fingers or toes often to reduce stiffness and swelling. Raise (elevate) the injured area above the level of your heart while you are sitting or lying down. Wear an elastic bandage as told by your health care provider. Make sure that it is not too tight. General instructions Take kuno-app-nmbducv and prescription medicines only as told by your health care provider. Treatment may include muscle relaxants or medicines for pain and inflammation that are taken by mouth or applied to the skin. Restrict your activity and rest the injured muscle as told by your health care provider. Gentle movements may be allowed. If physical therapy was prescribed, do exercises as told by your health care provider. Do not put pressure on any part of the splint until it is fully hardened. This may take several hours. Do not use any products that contain nicotine or tobacco. These products include cigarettes, chewing tobacco, and vaping devices, such as e-cigarettes. If you need help quitting, ask your health care provider. Ask your health care provider when it is safe to drive if you have a splint. Keep all follow-up visits. This is important. How is this prevented? Warm up before exercising. This helps to prevent future muscle strains. Contact a health care provider if: You have more pain or swelling in the injured area. Get help right away if: You have numbness or tingling in the injured area. You lose a lot of strength in the injured area. Summary A muscle strain is an injury that occurs when a muscle is stretched beyond its normal length. This condition is caused when a sudden, violent force is placed on a muscle and stretches it too far. This condition is initially treated with ALEGRE therapy, which involves protecting, resting, icing, compressing, and elevating. Gentle movements may be allowed. If physical therapy was prescribed, do exercises as told by your health care provider. This information is not intended to replace advice given to you by your health care provider. Make sure you discuss any questions you have with your health care provider. Document Revised: 11/18/2021 Document Reviewed: 11/18/2021 [employer] Patient Education 2022 [employer]. Follow Up Care 03/08/2024 13:07:25 With:David Zazueta Address: [address], [address] [place] [address]- [phone] Business (1) When:03/11/2024 15:24:14 With:Jennie Ames Address: [address] [facility] [address] [place] [address]- Business (1) When:Within 3 Day(s) [facility] 03-08-2024 History of Present illness Narrative Radiology Service Progress Note DATE OF SERVICE: March 08, 2024 TIME: 10:01 AM PATIENT WEIGHT: 197 LBS PATIENT IDENTITY VERIFICATION COMPLETED USING TWO (2) STANDARD IDENTIFIERS: Name and Date of confirmed by patient verbally. FALL SCREENING: Has the patient had 2 falls in the last year or 1 fall with injury or currently using an Ambulatory Assistive Device (Walker, Cane, Wheelchair, Crutches, etc.)? No PATIENT GENDER DATA: Female. status: : No status: NO. ALLERGIES: Reviewed and unchanged CONTRAST ALLERGY: No EXAM: MRI - CONTRAST TYPE: GROUP II IV SITE: Ambulatory: A peripheral IV was started in the Right antecubital site with a Angio cath: 22 gauge. and A Saline lock was inserted per protocol IV SITE APPEARANCE: Clean,Dry and Intact SIGNATURE: Sofia Benavidez RN PATIENT NAME: Shazia Chou DATE: March 08, 2024 TIME: 10:01 AM Radiology Service Progress Note PATIENT NAME: Shazia Chou DATE OF SERVICE: March 08, 2024 TIME: 10:35 AM PATIENT IDENTITY VERIFICATION COMPLETED USING TWO (2) IDENTIFIERS: Name and Date of confirmed by patient verbally. FALL SCREENING: Has the patient had 2 falls in the last year or 1 fall with injury or currently using an Ambulatory Assistive Device (Walker, Cane, Wheelchair, Crutches, etc.)? No PATIENT GENDER DATA: Female. status: : No status: NO. PATIENT RELEVANT IMPLANT DATA REVIEWED: Yes PATIENT PRESENTS WITH AN IMPLANTABLE OR ATTACHED SPECTACLE TRUER: No RADIOLOGY DEPARTMENT: MR; Exam(s) Completed: Body: Pancreas/Biliary PERIPHERAL IV DATA: Site assessment: Clean,Dry and Intact, Site disposition Discontinued SIGNED BY: KING Tovar March 08, 2024 10:35 AM documented in this encounter [facility] 03-08-2024 Note HNO ID: [id number] Author: MIRLANDE DIAZ MRI Tech Service: Radiology Author Type: Pneudraulic Systems Mechanic Type: Progress Notes Filed: 03/08/2024 10:36 Note Text: Radiology Service Progress Note PATIENT NAME: Shazia Chou DATE OF SERVICE: March 08, 2024 TIME: 10:35 AM PATIENT IDENTITY VERIFICATION COMPLETED USING TWO (2) IDENTIFIERS: Name and Date of confirmed by patient verbally. FALL SCREENING: Has the patient had 2 falls in the last year or 1 fall with injury or currently using an Ambulatory Assistive Device (Walker, Cane, Wheelchair, Crutches, etc.)? No PATIENT GENDER DATA: Female. status: : No status: NO. PATIENT RELEVANT IMPLANT DATA REVIEWED: Yes PATIENT PRESENTS WITH AN IMPLANTABLE OR ATTACHED SPECTACLE TRUER: No RADIOLOGY DEPARTMENT: MR; Exam(s) Completed: Body: Pancreas/Biliary PERIPHERAL IV DATA: Site assessment: Clean,Dry and Intact, Site disposition Discontinued SIGNED BY: KING Tovar March 08, 2024 10:35 AM [facility] 03-08-2024 Note HNO ID: [id number] Author: SOFIA BENAVIDEZ RN Service: Nursing Author Type: Registered Nurse Type: Progress Notes Filed: 03/08/2024 10:07 Note Text: Radiology Service Progress Note DATE OF SERVICE: March 08, 2024 TIME: 10:01 AM PATIENT WEIGHT: 197 LBS PATIENT IDENTITY VERIFICATION COMPLETED USING TWO (2) STANDARD IDENTIFIERS: Name and Date of confirmed by patient verbally. FALL SCREENING: Has the patient had 2 falls in the last year or 1 fall with injury or currently using an Ambulatory Assistive Device (Walker, Cane, Wheelchair, Crutches, etc.)? No PATIENT GENDER DATA: Female. status: : No status: NO. ALLERGIES: Reviewed and unchanged CONTRAST ALLERGY: No EXAM: MRI - CONTRAST TYPE: GROUP II IV SITE: Ambulatory: A peripheral IV was started in the Right antecubital site with a Angio cath: 22 gauge. and A Saline lock was inserted per protocol IV SITE APPEARANCE: Clean,Dry and Intact SIGNATURE: Sofia Benavidez RN PATIENT NAME: Shazia Chou DATE: March 08, 2024 TIME: 10:01 AM [facility] 03-08-2024 Instructions Elia Baires DO - 03/08/2024 8:47 AM EDT 1) Schedule appointment with Austin Mata to discuss Adipex. 2) Schedule MRI of breast 3) I can refill the klonopin as needed. 4) Try steroid as needed twice daily 5) Follow-up in [address] Villafana to establish care documented in this encounter [facility] 03-08-2024 Note HNO ID: [id number] Author: ELIA BAIRES DO Service: ? Author Type: Physician Type: Progress Notes Filed: 03/08/2024 12:10 Note Text: ASSESSMENT/PLAN: 1. Routine health maintenance - ICD9: V70.0, ICD10: Z00.00 (primary diagnosis) - Counseled on healthy diet and regular exercise - Discussed need and benefit for weight loss. BMI 30.90 kg/(m2) - Smoking cessation encouraged; discussed risks to health and quitting strategies. Patient is ready to quit and varenicline (Chantix) prescribed - Counseled patient on limiting alcohol intake to 1 drink per day - Follow up for annual exam in one year 2. Class 1 obesity due to excess calories without serious comorbidity with body mass index (BMI) of 30.0 to 30.9 in adult - ICD9: 278.00, V85.30, ICD10: E66.09, Z68.30 Stable - She is history of gastric bypass Tian-en-y and was recently taking compounded semaglutide 1.2 mg but only lost 3 lbs after several months. She says she previously was prescribed phentermine and lost 40 lbs. She denied any prior history of manic episodes or issues with this previous prescription. I discussed that I would be willing to prescribe this based on her history, but could not prescribe at this time since I will be leaving this location and couldn't comply with the state monitoring requirements. I could give her a referral to colleague Austin Leon but could not guarantee he would be able to prescribe. She will schedule follow-up. - ENDOCRINE MEDICAL WEIGHT MANAGEMENT 3. Family history of pancreatic cancer - ICD9: V16.0, ICD10: Z80.0 4. Family history of cancer - ICD9: V16.9, ICD10: Z80.9 - She has significant family history of pancreatic cancer in father and multiple relatives. 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 Grossman. Recommended she follow-up with recommended MRI for serial evaluation as recommended by surgeon/tumor board. Advised her to keep follow-up for genetic testing give extensive familial cancer history. 5. Mass of upper outer quadrant of left breast - ICD9: 611.72, ICD10: N63.21 - She has had pain in left upper breast for last year; with inversion of left nipple and discharge for last six months. She reports she had normal mammogram and ultrasound in November and so her OB recommended no additional follow-up. However, given her exam findings and her high risk-cancer familial cancer history; I am concerned for possible undiagnosed malignancy. Recommended MRI of left breast. - MRI BREAST BX WO/W IVCON LEFT - IV CONTRAST (RADIOLOGY PROCEDURE) 6. Dermatitis - ICD9: 692.9, ICD10: L30.9 - Looks like contact dermatitis on right anterior thigh; ordered topical trimancinolone and recommended follow-up if not improving. - TRIAMCINOLONE ACETONIDE 0.1 % TOPICAL CREAM 7. History of hysterectomy - ICD9: V88.01, ICD10: Z90.710 - She had hysterectomy in November 2022 for adenomyosis, but unclear if total or supracervical. Recommended obtaining records from Dr. Das to see if Paps are still needed. 8. Chronic alcoholism in remission (HCC) - ICD9: 303.93, ICD10: F10.21 - History of alcoholism but has been in remission for several years. Discussed that I would refill her naltrexone 50 mg prescription. 9. Panic disorder - ICD9: 300.01, ICD10: F41.0 - She says she established with psyschiatry and her anxiety is much improved since starting lamictal 75 mg daily. Only using clonazepam 0.5 mg a few times per month. She says she is not sure if her psychiatrist will take over this prescription; but advised that I can fill it if using sparingly. Other meds to be filled by psych. 10. Idiopathic intracranial hypertension - ICD9: 348.2, ICD10: G93.2 - Gets headaches in fall and takes acetazolamide 250 mg twice daily as needed. - ACETAZOLAMIDE 250 MG TABLET 11. Bipolar affective disorder in remission (HCC) - ICD9: 296.80, ICD10: F31.70 12. Borderline personality disorder (HCC) - ICD9: 301.83, ICD10: F60.3 13. Anxiety disorder, unspecified type - ICD9: 300.00, ICD10: F41.9 - Follows with psychiatry. Continue lamotrigine 75 mg daily, duloxetine 60 mg twice daily, and trazodone 50 mg at bedtime. - LAMOTRIGINE 25 MG TABLET - DULOXETINE 60 MG CAPSULE,DELAYED RELEASE CC: Patient presents with: Physical: Gastric by pass surgery 3 yrs ago and wants to talk about how to help with weight loss. Rash on right upper thigh. HPI: Shazia Chou is a 33 year old female who presents for a comprehensive problem evaluation. Current issues/concerns include: Bipolar disorder/depression/anxiety-she was able to establish with psychiatry at [facility]. Says they stopped her Rexulti and switch to Lamictal 75 mg daily. Says this has dramatically improved her symptoms. Currently taking duloxetine 60 mg twice daily and trazodone 50 mg at bedtime. She says that she has only needed to use her clonazepam a few times a week. H (more content not included)... [facility] 03-08-2024 History of Present illness Narrative ASSESSMENT/PLAN: 1. Routine health maintenance - ICD9: V70.0, ICD10: Z00.00 (primary diagnosis) - Counseled on healthy diet and regular exercise - Discussed need and benefit for weight loss. BMI 30.90 kg/(m^2) - Smoking cessation encouraged; discussed risks to health and quitting strategies. Patient is ready to quit and varenicline (Chantix) prescribed - Counseled patient on limiting alcohol intake to 1 drink per day - Follow up for annual exam in one year 2. Class 1 obesity due to excess calories without serious comorbidity with body mass index (BMI) of 30.0 to 30.9 in adult - ICD9: 278.00, V85.30, ICD10: E66.09, Z68.30 Stable - She is history of gastric bypass Tian-en-y and was recently taking compounded semaglutide 1.2 mg but only lost 3 lbs after several months. She says she previously was prescribed phentermine and lost 40 lbs. She denied any prior history of manic episodes or issues with this previous prescription. I discussed that I would be willing to prescribe this based on her history, but could not prescribe at this time since I will be leaving this location and couldn't comply with the state monitoring requirements. I could give her a referral to colleague Austin Leon but could not guarantee he would be able to prescribe. She will schedule follow-up. - ENDOCRINE MEDICAL WEIGHT MANAGEMENT 3. Family history of pancreatic cancer - ICD9: V16.0, ICD10: Z80.0 4. Family history of cancer - ICD9: V16.9, ICD10: Z80.9 - She has significant family history of pancreatic cancer in father and multiple relatives. 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 Grossman. Recommended she follow-up with recommended MRI for serial evaluation as recommended by surgeon/tumor board. Advised her to keep follow-up for genetic testing give extensive familial cancer history. 5. Mass of upper outer quadrant of left breast - ICD9: 611.72, ICD10: N63.21 - She has had pain in left upper breast for last year; with inversion of left nipple and discharge for last six months. She reports she had normal mammogram and ultrasound in November and so her OB recommended no additional follow-up. However, given her exam findings and her high risk-cancer familial cancer history; I am concerned for possible undiagnosed malignancy. Recommended MRI of left breast. - MRI BREAST BX WO/W IVCON LEFT - IV CONTRAST (RADIOLOGY PROCEDURE) 6. Dermatitis - ICD9: 692.9, ICD10: L30.9 - Looks like contact dermatitis on right anterior thigh; ordered topical trimancinolone and recommended follow-up if not improving. - TRIAMCINOLONE ACETONIDE 0.1 % TOPICAL CREAM 7. History of hysterectomy - ICD9: V88.01, ICD10: Z90.710 - She had hysterectomy in November 2022 for adenomyosis, but unclear if total or supracervical. Recommended obtaining records from Dr. Das to see if Paps are still needed. 8. Chronic alcoholism in remission (HCC) - ICD9: 303.93, ICD10: F10.21 - History of alcoholism but has been in remission for several years. Discussed that I would refill her naltrexone 50 mg prescription. 9. Panic disorder - ICD9: 300.01, ICD10: F41.0 - She says she established with psyschiatry and her anxiety is much improved since starting lamictal 75 mg daily. Only using clonazepam 0.5 mg a few times per month. She says she is not sure if her psychiatrist will take over this prescription; but advised that I can fill it if using sparingly. Other meds to be filled by psych. 10. Idiopathic intracranial hypertension - ICD9: 348.2, ICD10: G93.2 - Gets headaches in fall and takes acetazolamide 250 mg twice daily as needed. - ACETAZOLAMIDE 250 MG TABLET 11. Bipolar affective disorder in remission (HCC) - ICD9: 296.80, ICD10: F31.70 12. Borderline personality disorder (HCC) - ICD9: 301.83, ICD10: F60.3 13. Anxiety disorder, unspecified type - ICD9: 300.00, ICD10: F41.9 - Follows with psychiatry. Continue lamotrigine 75 mg daily, duloxetine 60 mg twice daily, and trazodone 50 mg at bedtime. - LAMOTRIGINE 25 MG TABLET - DULOXETINE 60 MG CAPSULE,DELAYED RELEASE CC: Patient presents with: Physical: Gastric by pass surgery 3 yrs ago and wants to talk about how to help with weight loss. Rash on right upper thigh. HPI: Shazia Chou is a 33 year old female who presents for a comprehensive problem evaluation. Current issues/concerns include: Bipolar disorder/depression/anxiety-she was able to establish with psychiatry at [facility]. Says they stopped her Rexulti and switch to Lamictal 75 mg daily. Says this has dramatically improved her symptoms. Currently taking duloxetine 60 mg twice daily and trazodone 50 mg at bedtime. She says that she has only needed to use her clonazepam a few times a week. History of alcohol abuse in remission-currently follows with addiction medicine. Taking naltrexone 50 mg daily for absence. Not currently in and IOP program. Has no current desire to drink. Idiopathic intracranial hypertension- typically takes acetazolamide 250 mg twice daily as needed. Typically just has headaches in the fall. Soft tissue mass-she had recently discovered cystic lesion on MRI in August which measured 3.7 x 2.8 x 4.4 cm, slightly increased in size from prior CT imaging in 2020. She had family history of pancreatic cancer so was referred to hepatobiliary Dr. Grossman for evaluation. Case also discussed with tumor board. 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 Dr. Grossman recommended serial imaging for February which she did not yet obtain. He had ordered genetic screening for pancreatic cancer given her high risk family history. Scheduled for July. Breast pain-she has had chronic left breast pain for the last year, also had nipple inversion for the last 6 months. She says that she had a normal mammogram and ultrasound in November ordered by her old PCP and was told there was no need for additional follow-up. She also reports discharge from this breast last year. Last 4 Encounter Wt Readings: Date: Wt: 03/08/2024 89.5 kg (197 lb 5 oz) 01/04/2024 92.5 kg (204 lb 0.6 oz) 08/31/2023 89.4 kg (197 lb) 11/20/2022 85.7 kg (189 lb) HEALTH MAINTENANCE REVIEW: Pneumococcal Vaccine(1 of 2 - PCV) Never done Hepatitis B Vaccine(2 of 3 - 3-dose series) due on 12/10/2000 Gynecologic History Patient's last menstrual period was 10/23/2022. Period Regularity: absent Sexually Active - Yes Abnormal Pap smears in the past - No Abnormal breast exam or mammogram in the past - No PATIENT HISTORY: Problem list, Past surgical history and Social Histories reviewed and updated today in the History tab of ezeep. REVIEW OF SYSTEMS: All other reviewed and negative other than HPI. OBJECTIVE: BP 114/72 Pulse 82 Ht 5' 7.008 (1.70m) Wt 197 lb 5 oz (89.5kg) SpO2 100% LMP 10/23/2022 BMI 30.90 kg/(m^2). General appearance: well appearing, NAD, Weight obesity BMI 30.90 Psych: Mood normal, Affect normal, Judgement normal, Neuro: Cranial nerves II-XII grossly intact; Strength and sensation grossly intact; Reflexes normal. No focal deficits. Head: normocephalic, atraumatic Eyes: Anicteric sclera. PERRL, EOMI Ears: external ears normal, canals clear, TM's normal Nose/Sinuses: Nose normal, Sinuses nontender Oropharynx: MMM, OP normal Neck: Supple, no adenopathy Heart: RRR without murmur, gallop, or rubs. Lungs: lungs clear to auscultation, no wheezing or rhonchi Breast: No appreciable mass, but fibrocystic changes noted and tenderness with palpation of upper left outer quadrant of left breast. Nipple inverted. Abdomen: Nontender, Abdomen soft, BS present, No masses Musculoskeletal: No deformities, No edema, FROM all extremities Skin: punctate linear lesions on anterior right thigh Pulses: DP 2+, Well perfused Dr. Elia Baires DO documented in this encounter [facility] 01-04-2024 Instructions Elia Baires DO - 01/04/2024 10:16 AM EDT 1) Give urine sample today. 2) Placed lab orders. Fast for 12 hours then get labs. 3) I would follow-up with your psychiatrist in January 4) Physical in 1-2 months. documented in this encounter [facility] 01-04-2024 Note HNO ID: [id number] Author: ELIA BAIRES DO Service: ? Author Type: Physician Type: Progress Notes Filed: 01/04/2024 14:25 Note Text: ASSESSMENT/PLAN: 1. Panic disorder - ICD9: 300.01, ICD10: F41.0 (primary diagnosis) 2. Borderline personality disorder (HCC) - ICD9: 301.83, ICD10: F60.3 3. Bipolar affective disorder in remission (HCC) - ICD9: 296.80, ICD10: F31.70 -New patient here to establish care and see temporary treatment for her anxiety. She has severe anxiety and agoraphobia which is interfering with her ability to go to work and maintain her job. She is planning on establishing with a new psychiatrist on 01/21, however she has tried both hydroxyzine and buspirone for her anxiety without much success. Discussed that I could do a prescription for clonazepam 0.5 mg twice daily as needed until she can establish with a new psychiatrist. She agreed to a urine drug screen but noted that it will be positive for cannabis and the lorazepam she recently received in the emergency department. Can fill prescription if negative for all other drugs. Continue duloxetine 60 mg twice daily and Rexulti 4 mg and trazodone 50 mg at bedtime. - TOXICOLOGY SCRN W/CONF,URINE 4. Chronic alcoholism in remission (HCC) - ICD9: 303.93, ICD10: F10.21 -Endorses history of alcoholism but this has been controlled for over a year. She does do occasional Vivitrol injections and can have a drink afterwards without drinking to excess. Continue current regimen. 5. Routine health maintenance - ICD9: V70.0, ICD10: Z00.00 -Ordered labs in anticipation of physical. Follow-up in 4 to 6 weeks. - COMPLETE BLOOD COUNT - COMPREHENSIVE METABOLIC PANEL - HEMOGLOBIN A1C - LIPID PANEL BASIC - HIV 1/2 COMBO WITH REFLEX TO DIFFERENTIATION - HEPATITIS C ANTIBODY IA WITH CONFIRMATION CC: Patient presents with: Establish Care: Panic attacks , SOB ( Chest tightness ) HPI: Shazia is a 33 year old female that presents with panic disorder. Patient here to establish care and seek treatment for her anxiety. She has a past medical history of bipolar affective disorder, borderline personality disorder, severe anxiety and panic disorder, agoraphobia, intracranial hypertension, obesity status post Tian-en-Y, alcohol use in remission. She says that she is originally from [facility] however came up to here today to establish with new physician due to feeling that her psychiatric needs were not being met by her current provider. She says that she has had worsening anxiety and panic attacks for the last 2 years since the of her grandmother and her parents. She says that she has daily panic attacks and often has associated chest pain. She went to the emergency room on multiple occasions and has been given benzodiazepines which have helped. However her current PCP is unwilling to prescribe these. She says that she has tried hydroxyzine and buspirone. Hydroxyzine was not effective and BuSpar caused severely elevated blood pressures. She says that pain attacks are so severe that she is unable to leave the house many days in has missed work. She is planning to establish with a new psychiatrist at [facility] in [place]. She also sees a counselor weekly. Current medication regimen is duloxetine 60 mg twice daily, Rexulti 4 mg daily, trazodone 50 mg nightly. She denies use of illegal drugs. Says that she was prescribed lorazepam at her recent ED visit. She also endorses use of cannabis. Hx of intracranial hypertension-she has history of intracranial hypertension. Follows with neurology. Typically only has symptoms in the fall at which time she takes acetazolamide 200 mg daily. Obesity-she has a history of Tian-en-Y. He was recently also prescribed compounded semaglutide. Currently taking 0.5 mg dose weekly. ROS: See HPI History: Medical history, surgical history, social history and allergies were reviewed and updated in the system. PHYSICAL EXAM: BP 123/86 Pulse 92 Ht 5' 7 (1.70m) Wt 204 lb 0.6 oz (92.6kg) SpO2 97% LMP 10/23/2022 BMI 31.95 kg/(m2). General Appearance: Well appearing, alert, in no acute distress, well-hydrated, well nourished.. Lungs: Lungs clear to auscultation. No wheezing, rhonchi, rales.. Heart: RRR without murmur, gallop, or rubs. No ectopy. Psych: Moderately anxious with congruent affect. Pleasant demeanor. Not denies severe depression or SI/HI. No psychosis or maryam. Dr. Elia Baires, DO [facility] 01-04-2024 History of Present illness Narrative ASSESSMENT/PLAN: 1. Panic disorder - ICD9: 300.01, ICD10: F41.0 (primary diagnosis) 2. Borderline personality disorder (HCC) - ICD9: 301.83, ICD10: F60.3 3. Bipolar affective disorder in remission (HCC) - ICD9: 296.80, ICD10: F31.70 -New patient here to establish care and see temporary treatment for her anxiety. She has severe anxiety and agoraphobia which is interfering with her ability to go to work and maintain her job. She is planning on establishing with a new psychiatrist on 01/21, however she has tried both hydroxyzine and buspirone for her anxiety without much success. Discussed that I could do a prescription for clonazepam 0.5 mg twice daily as needed until she can establish with a new psychiatrist. She agreed to a urine drug screen but noted that it will be positive for cannabis and the lorazepam she recently received in the emergency department. Can fill prescription if negative for all other drugs. Continue duloxetine 60 mg twice daily and Rexulti 4 mg and trazodone 50 mg at bedtime. - TOXICOLOGY SCRN W/CONF,URINE 4. Chronic alcoholism in remission (HCC) - ICD9: 303.93, ICD10: F10.21 -Endorses history of alcoholism but this has been controlled for over a year. She does do occasional Vivitrol injections and can have a drink afterwards without drinking to excess. Continue current regimen. 5. Routine health maintenance - ICD9: V70.0, ICD10: Z00.00 -Ordered labs in anticipation of physical. Follow-up in 4 to 6 weeks. - COMPLETE BLOOD COUNT - COMPREHENSIVE METABOLIC PANEL - HEMOGLOBIN A1C - LIPID PANEL BASIC - HIV 1/2 COMBO WITH REFLEX TO DIFFERENTIATION - HEPATITIS C ANTIBODY IA WITH CONFIRMATION CC: Patient presents with: Establish Care: Panic attacks , SOB ( Chest tightness ) HPI: Shazia is a 33 year old female that presents with panic disorder. Patient here to establish care and seek treatment for her anxiety. She has a past medical history of bipolar affective disorder, borderline personality disorder, severe anxiety and panic disorder, agoraphobia, intracranial hypertension, obesity status post Tian-en-Y, alcohol use in remission. She says that she is originally from [facility] [facility] however came up to here today to establish with new physician due to feeling that her psychiatric needs were not being met by her current provider. She says that she has had worsening anxiety and panic attacks for the last 2 years since the of her grandmother and her parents. She says that she has daily panic attacks and often has associated chest pain. She went to the emergency room on multiple occasions and has been given benzodiazepines which have helped. However her current PCP is unwilling to prescribe these. She says that she has tried hydroxyzine and buspirone. Hydroxyzine was not effective and BuSpar caused severely elevated blood pressures. She says that pain attacks are so severe that she is unable to leave the house many days in has missed work. She is planning to establish with a new psychiatrist at [facility] in [place]. She also sees a counselor weekly. Current medication regimen is duloxetine 60 mg twice daily, Rexulti 4 mg daily, trazodone 50 mg nightly. She denies use of illegal drugs. Says that she was prescribed lorazepam at her recent ED visit. She also endorses use of cannabis. Hx of intracranial hypertension-she has history of intracranial hypertension. Follows with neurology. Typically only has symptoms in the fall at which time she takes acetazolamide 200 mg daily. Obesity-she has a history of Tian-en-Y. He was recently also prescribed compounded semaglutide. Currently taking 0.5 mg dose weekly. ROS: See HPI History: Medical history, surgical history, social history and allergies were reviewed and updated in the system. PHYSICAL EXAM: BP 123/86 Pulse 92 Ht 5' 7 (1.70m) Wt 204 lb 0.6 oz (92.6kg) SpO2 97% LMP 10/23/2022 BMI 31.95 kg/(m^2). General Appearance: Well appearing, alert, in no acute distress, well-hydrated, well nourished.. Lungs: Lungs clear to auscultation. No wheezing, rhonchi, rales.. Heart: RRR without murmur, gallop, or rubs. No ectopy. Psych: Moderately anxious with congruent affect. Pleasant demeanor. Not denies severe depression or SI/HI. No psychosis or maryam. Dr. Elia Baires DO documented in this encounter [facility] 09-18-2023 Hospital Discharge instructions Gamaliel Harris DO [...] questions, PLEASE call your doctor or the [facility] at documented in this encounter [facility] 09-16-2023 History of Present illness Narrative PAT phone call for /EGD completed with pt. Date/time/location (entrance C) of surgery/procedure verified with pt. NPO after MN status verified with pt. 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 Instructed pt to take a shower the AM of surgery/procedure and to avoid lotions, creams, jewelry. Encouraged pt to avoid artificial nails and/or nailpolish. Instructed pt to take BP meds with a small sip of water prior to procedure/surgery. documented in this encounter [facility] 09-15-2023 Note HNO ID: [id number] Author: Rahul Godinez DO Service: ? Author Type: Fellow Type: Progress Notes Filed: 09/15/2023 12:00 PM Note Text: [facility] Multidisciplinary [facility] AND Upper GI Case Conference -- Consensus Note -- Conference Date: 09/15/2023 Case reviewed with physicians from GI, Surgery, AND Radiology services: -- Surgeons - Cristal Rodriguez Augustin, Naffouje, Visioni, and Gaurang -- Gastroenterologists - Brando Sinclair -- Radiologist - [place] Issue(s) Question(s): 32 year old female with [...] 6 months DO ISATU Moser Surgical Fellow [facility] 08-13-2023 Evaluation note Encounter Date Diagnosis Assessment Notes Jul, Pancreatic cyst (ICD-10 - K86.2) [employer] Other 10-25-2023 Evaluation note* Encounter Date Diagnosis [...] stop smoking. Jun, Smoker (ICD-10 - F17.200) [employer] Other 09-27-2023 NoteHNO ID: [id number] Author: Eileen Manzano MD Service: ? Author Type: Physician Type: Progress Notes Filed: 06/10/2023 3:39 PM Note Text: [facility] Follow Up / Established Virtual Visit I have communicated my name and active licensure. The patient's identity and physical location were verified at the time of this visit. Either the patient or their legal car sales representative has been informed of the [...] due to congenital deformity, seen in the [facility] for: Idiopathic intracranial [...] due to congenital deformity, seen in the [facility] for: 1. Idiopathic [...] she agreed. She needs to follow with barrel builder every 6 months. In some patients with [...] her eyes. She has never seen an barrel builder. CSF protein 24, Glu 55, Pro 28, [...] cognition, memory, speech. Cr (more content not included)...[facility] [id number] Miscellaneous Notes * Telephone Encounter - Bunny [...] A DAY IN A WEEK Pharmacy Name: [facility] Phone #: [phone] Fabby Cassidy [facility] + Plan note Diagnostic Tests Pending * Zinc Level 03/19/23 * PTH Intact 03/19/23 * Vitamin A Level 03/19/23 * Vitamin B1 03/19/23 Future Scheduled Tests Laboratory* CBC w/ Auto Diff 07/21/22 Radiology* MA Mamm Screen w/CAD if perf and 3D Tanmay 04/21/22 [facility]05-04-2023 Hospital Discharge instructions Patient Education [...] Follow these instructions at home: Medicines Take ijjy-ahn-pyajnfx and prescription medicines only as told by [...] provider. Document Revised: 11/14/2021 Document Reviewed: 11/14/2021 [employer] Patient Education 2022 [employer]. Follow Up Care 01/15/2023 10:48:45 With:Jennie Ames Address: [address] [place] [address]- Business (1) When:01/18/2023 13:32:37 [facility]05-04-2023 Evaluation + Plan noteExtracted from: [...] w/CAD if perf and 3D Tanmay 04/21/22 [facility]03-31-2023 Miscellaneous Notes* Telephone Encounter - Bunny Durbin RN - 12/12/2022 3:03 PM EDT Spoke with patient and informed that per [facility] pharmacy, there are remaining refills on her [...] A DAY IN A WEEK Pharmacy Name: [facility] Phone #: [phone] Fabby Cassidy [facility] Hospital Discharge instructions Patient Education 12/05/2022 12:15:12 Post Op Patient Instructions - ALANNA (CUSTOM) 12/05/2022 12:15:12 DRAWING BOX TENDER - Post Hysterectomy/Laparotomy/Major Surgery-Thiago (CUSTOM) Instructions [...] Up Care 11/04/2022 14:01:47 With:Gal Das Address: [address] [place] [address] [place], [address] [address] Business (1) When:6 weeks With:Gal Das Address: [facility], [address] [address]- Business (1) When:2 weeks Comments:Call for any problems. [facility]03-24-2023 Evaluation + Plan noteExtracted from: Title:ANES Post-operative Note - General Author: Vu Maria Jr., DO Date:12/05/22 Plan Transfer/Discharge: Transfer/Discharge Discharge when meets criteria ( From PACU to Ambulatory Surgery Unit, and To home ). Extracted from: Title:ANES Pre-operative Note - Adult Author:Vu Chowdhury Jr., DO Date:12/05/22 Plan [place] [employer]hesi[employer] (ASA) physical status classification: Class II. Anesthetic Preoperative Plan: Anesthesia General. Future Appointments Appointment Date:01/02/2023 10:00:00 AM Scheduled Provider:Nakia Shah Location:[facility] Appointment Type: Open Future Scheduled Tests Laboratory* CBC w/ Auto Diff 07/21/22 Radiology* MA Mamm Screen w/CAD if perf and 3D Tanmay 04/21/22 [facility]03-09-2023 NoteHNO ID: [id number] Author: Eileen Manzano MD Service: ? Author Type: Physician Type: Progress Notes Filed: 11/20/2022 10:33 AM Note Text: 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 She has never seen an barrel builder. CSF protein 24, Glu 55, Pro 28, [...] due to congenital deformity, seen in the [facility] for: 1. Idiopathic [...] she agreed. She needs to follow with barrel builder every 6 months. In some patients with [...] --start acetazolamide (diamox 500m (more content not included)...[facility] [id number] Instructions* Patient Instructions* Eileen Manzano MD - [...] up in 2-4 months [facility] History of Present illness Narrative* Eileen Manzano MD - 11/20/2022 7:57 AM EST Images from the original note were not included. 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 She has never seen an barrel builder. CSF protein 24, Glu 55, Pro 28, [...] due to congenital deformity, seen in the [facility] for: 1. Idiopathic [...] she agreed. She needs to follow with barrel builder every 6 months. In some patients with [...] Take 40 mg by mouth once daily. jdruryoeoahg-iss-wnim-FA-vit K (BARIATRIC MULTIVITAMINS) 45 mg iron- 800 [...] % Lymph% 20 15.9 - 47.3 % Sanders% 6 0.0 - 12.0 % Eosin% 3 0.0 - 6.6 % Baso% 1 0.0 - 1.2 % Abs Neut (ANC) 7.64 (H) 1.45 - 7.50 k/uL Abs Lymph 2.18 1.00 - 4.00 K/uL Abs Sanders 0.65 0.00 - 0.86 k/uL Abs Eosin [...] which included preparing to see the patient, ikga-si-mklz patient care, completing clinical documentation, obtaining and/or reviewing separately obtained history, performing a medically appropriate examination, counseling and educating the pat ient/family/caregiver, ordering medications, tests, or procedures, independently interpreting results (not separately reported), communicating results to the patient/family/caregiver, and care coordination (not separately reported). Eileen Manzano MD [facility] Hospital Discharge instructions Patient Education 11/03/2022 13:28:28 [...] height. This can be done either in [place] ([place] or metric measurements. Note that charts are available to help you find your BMI quickly and easily without having to do these calculations yourself. To calculate your BMI in [place]e [place] measurements, your health care provider will: [...] medical problems. BMI can be measured using Nepalese measurements or metric measurements. To interpret your [...] 05/12/2005 Document Revised: 08/13/2018 Document Reviewed: 07/14/2018 [employer] Patient Education 2020 My[employer]. 11/03/2022 13:28:26 Tobacco Use Disorder Tobacco Use [...] reduces withdrawal symptoms. NRT is available as: ?Twav-vsg-svcoter gums, lozenges, and skin patches. ?Prescription mouth [...] recovery for many people. General instructions Take oywu-geh-dpzumpd and prescription medicines only as told by your health care provider. Check with your health care provider before taking any new prescription or irve-ukb-zohojdp medicines. Decide on a friend, family member, or smoking quit-line (such as 5-275-VBRX-NOW in the [place] that you can call [...] 05/06/2005 Document Revised: 08/18/2018 Document Reviewed: 08/18/2018 [employer] Patient Education 2020 [employer]. 11/03/2022 13:28:23 Alcohol Abuse and Dependence Information, [...] for Disease Control and Prevention: www.cdc.gov National [place] on Alcohol Abuse and Alcoholism: www.niaaa.nih.gov Alcoholics [...] 08/25/2017 Document Revised: 12/20/2019 Document Reviewed: 11/08/2019 Goko Patient Education 2020 MyWave. 11/03/2022 13:28:19 BMI for Adults BMI for [...] height. This can be done either in Nepalese (U.S.) or metric measurements. Note that charts are available to help you find your BMI quickly and easily without having to do these calculations yourself. To calculate your BMI in Nepalese ([place].S.) measurements, your health care provider will: [...] medical problems. BMI can be measured using Nepalese measurements or metric measurements. To interpret your [...] 05/12/2005 Document Revised: 08/13/2018 Document Reviewed: 07/14/2018 Goko Patient Education 2020 MyWave. 10/27/2022 11:56:27 Alcohol Abuse and Dependence Information, [...] to find support Your health care provider. [employer]: www.Mass[employer]y.org Therapy and support groups Local treatment centers or chemical dependency counselors. Local AA groups in your community: www.aa.org Where to find more information Centers for Disease Control and Prevention: www.cdc.gov National [place] on Alcohol Abuse and Alcoholism: www.niaaa.nih.gov Alcoholics [...] 08/25/2017 Document Revised: 12/20/2019 Document Reviewed: 11/08/2019 Goko Patient Education 2020 MyWave. Follow Up Care 10/15/2022 11:28:56 With:Nakia Shah Address: [address], [facility] [place] [address]- When:Within 2 Month(s) Comments:f/u smoking cessation and BP [facility] 01-11-2023 Hospital Discharge instructions [...] reduces withdrawal symptoms. NRT is available as: ?Phaq-lco-ydovjeh gums, lozenges, and skin patches. ?Prescription mouth [...] recovery for many people. General instructions Take wvgi-fbt-kqlaqcv and prescription medicines only as told by your health care provider. Check with your health care provider before taking any new prescription or qany-hvv-dxvbzmm medicines. Decide on a friend, family member, or smoking quit-line (such as 4-809-KSLS-NOW in the [place] that you can call [...] 05/06/2005 Document Revised: 08/18/2018 Document Reviewed: 08/18/2018 Goko Patient Education 2020 MyWave. 09/24/2022 07:23:47 BMI for Adults BMI for [...] height. This can be done either in Nepalese ([place].S.) or metric measurements. Note that charts are available to help you find your BMI quickly and easily without having to do these calculations yourself. To calculate your BMI in Nepalese ([place].) measurements, your health care provider will: [...] medical problems. BMI can be measured using Nepalese measurements or metric measurements. To interpret your [...] 05/12/2005 Document Revised: 08/13/2018 Document Reviewed: 07/14/2018 Goko Patient Education 2020 MyWave. 09/24/2022 07:23:45 Alcohol Use Disorder Alcohol Use [...] centers. Follow these instructions at home: Take luoc-trs-jixdoau and prescription medicines only as told by [...] 10/08/2005 Document Revised: 08/13/2018 Document Reviewed: 05/28/2017 Goko Patient Education 2020 MyWave. 09/24/2022 07:23:42 Borderline Personality Disorder, Adult Borderline [...] with BPD should do these things: Take njhe-lwp-ioeosoi and prescription medicines only as told by [...] important. Where to find more information National [place] on Mental Illness: www.marivel.org [place]. National [place] of Mental Health: www.nimh.nih.gov Contact a health [...] 12/16/2011 Document Revised: 08/13/2018 Document Reviewed: 11/05/2017 Goko Patient Education 2020 MyWave. 09/24/2022 07:23:39 Managing Bipolar Disorder Managing Bipolar [...] Follow these instructions at home: Medicines Take gbxd-zyo-ltiqkik and prescription medicines only as told by your health care provider or pharmacist. Ask your pharmacist what lqjr-tuh-xystbov cold medicines you should avoid. Some medicines [...] a problem, search for a local or formerly [facility] mental health care center. Public mental [...] 12/31/2017 Document Revised: 12/23/2019 Document Reviewed: 12/31/2017 ElseYuepu Sifang Patient Education 2019 MyWave. Follow Up Care 09/16/2022 13:23:11 With:Aimee Walker CNP Address: [address] [place] [address] [phone] When:3 months [facility] 12-09-2022 Hospital Discharge instructions Patient Education 08/22/2022 11:12:56 Tension Headache, Adult, Cuge-fb-Dxal Tension Headache, Adult A tension headache is pain, pressure, or aching in your head. Tension headaches can last from 30 minutes to several days. Follow these instructions at home: Managing pain Take bpmp-iiy-tojfmqw and prescription medicines only as told by [...] 11/25/2010 Document Revised: 08/13/2018 Document Reviewed: 12/11/2017 ElseYuepu Sifang Patient Education 2020 MyWave. Follow Up Care 08/14/2022 12:38:29 With:Rita SNOWDEN, IGGY Roberson, MINDI Address: [address], [place] [address] When:1 month only if needed Comments:40 mins [facility] 12-05-2022 Hospital Discharge instructions [...] feet clean and dry. General instructions Take cfcu-xwh-agbrotq and prescription medicines only as told by [...] 09/26/2016 Document Revised: 06/16/2019 Document Reviewed: 06/16/2019 Goko Patient Education 2020 Goko Inc. 08/18/2022 19:56:48 Foot Sprain Foot Sprain A [...] fully hardened. This may takeseveral hours. Take zwwc-ymy-ghgbpdx and prescription medicines only as told by [...] 02/20/2003 Document Revised: 09/04/2018 Document Reviewed: 09/04/2018 Goko Patient Education 2020 MyWave. 08/18/2022 19:56:48 Elastic Bandage and RICE Therapy [...] limityour activities and whether you should start btumg-nx-bhuqlk exercises for your injury. Ice Ice your [...] 02/20/2003 Document Revised: 05/21/2018 Document Reviewed: 05/21/2018 Goko Patient Education 2020 MyWave. Follow Up Care 08/18/2022 17:21:15 With:Hilton Gillis Address: [address] [place], [place] [id number] Business (1) When:08/21/2022 19:10:21 With:Aimee Walker Address:Unknown When:Within 3 Day(s) [facility]11-29-2022 Procedure [facility]11-29-2022 Progress note Author Lizzeth Malave [facility] August 12, 2022 10:46am Note Date/Time August 12, 2022 10:45am [facility] [address] [place], [place] [id number] Hospitalist Progress Note Signed Patient: Shazia Chou MR#: [id number] : 1990 Acct:[id number] Age/Sex: 31 / F Adm Date: 2 Loc: 4N Room: [address] [place] [address] Type: ADM INOo Attending Dr: Lizzeth Malave MD Copies to: ~ Date of Service: 08/12/2022 Subjective Subjective Narrative: Shazia Chou is a 31yo F. She was transferred here last night from [facility] with worsening headache and blurry vision with [...] Dose Route Start Last Admin Trade Name Cesar PRN Reason Stop Dose Admin Acetaminophen 650 [...] Flu Vac Quad (36month+)Pf 0.5 Ml Syringe IM 08/13/22 09:01 .ONCE ONE Omeprazole 20 mg 08/12/22 09:00 08/12/22 09:21 Omeprazole 20 Mg Capsule.Dr PO 08/12/23 08:59 20 mg DAILY CAITIE [...] V2 Documented By: Lizzeth Malave MD 08/12/22 3527 Signed By: <Electronically signed by Lizzeth Malave MD> 08/12/[address] [facility] Work Phone: 1(893) 684-673211-29-2022 Consult note Author Kenrick Lee [facility] August 12, 2022 4:21pm Note Date/Time August 12, 2022 8:13am [facility] [address] [place] [address] Neurology Consult Note Signed Patient: Shazia Chou MR#: [id number] : 1990 Acct:[id number] Age/Sex: 31 / F Adm Date: 2 Loc: 4N Room: [address] [place] [address] Type: ADM INOo Attending Dr: Lizzeth Malave MD Copies to: Kenrick Lee, DO Jennie Ames DO Dorita Niño, EDINSON Malave MD~ HPI Consult Date: 08/12/22 Poke In: ASTON Bro with Dr Lee Reason for consult: Headache, blurred vision Consult Narrative HPI: Patient is a 31-year-old female with medical history of bipolar, personality disorder, depression, and tobacco use in addition to 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 She has been seen in neurological consultation with request of the hospital service for headache and blurred vision. Patient initially presented to [facility] and was transferred to [facility] for evaluation. She was seen in the [facility] on 08/08/2022 with similar symptoms and [...] this is when she called EMS. At [facility] she had a CT scan of the [...] extremity from prior surgery CEREBELLAR EXAM: * Ftmxvv-dy-hlpf and alternating movements are intact and normal in bilateral upper extremities * Nstn-wi-ujyi and alternating movements are intact and normal [...] puncture based on these results. Evaluation at [facility]: * CT scan head is nonacute. Nonexpanded [...] once daily). Okay for discharge now from [facility]. Documented By: DIANNE Dias-C [id number] Signed By: <Electronically signed by EDINSON Niño> 08/12/22 0958 <Electronically signed by Kenrick Lee DO> 08/12/22 16[address] [facility] Work Phone: 1(883) 553-908911-28-2022 History and physical note Author Sangeetha Peña [facility] August 11, 2022 9:43pm Note Date/Time August 11, 2022 9:08pm [facility] [address] [place] [address] Hospitalist H&P Signed Patient: Shazia Chou MR#: [id number] : 1990 Acct:[id number] Age/Sex: 31 / F Adm Date: 2 Loc: 4N Room: [address] [place] [address] Type: ADM IN Attending Dr: Erin Barahona MD Copies to: MD Erin Mcwilliams MD~ HPI DATE OF EXAMINATION: 08/11/22 CHIEF COMPLAINT: Headache with blurry vision HISTORY OF PRESENT ILLNESS: Patient is a pleasant 31-year-old female with history of borderline personality disorder, bipolar disorder and depression. She was accepted by daytime hospitalist when contacted by [facility] physician due to concern for headache [...] pain or dysuria. She was [facility] on [facility]08 with similar symptoms. [facility]. Patient continues [...] vision: Plan Patient has been transferred from [facility] when she presented with complaint of headache and blurry vision. During my evaluation her blood pressure is in 115 systolic and complaining of headache with blurry vision. Denies diplopia with no pain in extraocular movement. There is concern for possible idiopathic intracranial hypertension and patient has been transferred to [facility] for further management and neurology evaluation. [...] <Electronically signed by Sangeetha Peña MD> 08/11/22 6[address] [facility] Work Phone: [phone]) 666-738711-25-2022 Evaluation + Plan noteExtracted from: Title:ED Note [...] Nausea/Vomiting, # 12 tab(s), Refills(s) 0, Pharmacy: [facility]/pharmacy #[id number], 162, cm, 08/08/22 9:11:00 EST, Height/Length Dosing, 83.1, kg, 08/08/22 9:11:00 EST, Weight Dosing Automated Diff Basic Metabolic Panel Beta hCG Qual CBC w/ Auto Diff CT Head or Brain w/o Contrast eGFR Influenza A&B Ag Rapid COVID Antigen ([facility]) UA With Cult Reflex Future Scheduled Tests Laboratory* CBC w/ Auto Diff 07/21/22 Radiology* MA Mamm Screen w/CAD if perf and 3D [place] 04/21/22 [facility]11-25-2022 Hospital Discharge instructions Patient Education [...] health care provider to lose weight. Take ikja-hnd-hhgqjpn and prescription medicines only as told by [...] 11/09/2002 Document Revised: 08/13/2018 Document Reviewed: 07/22/2017 Goko Patient Education 2020 MyWave. Follow Up Care 08/08/2022 09:04:11 With:Kenrick Lee Address: [address] [place] [address] Business (1) When:08/11/2022 11:38:22 Comments:Follow-up with Dr. [...] you develop any new or worsening symptoms. [facility]11-07-2022 Evaluation + Plan note Future Scheduled Tests Laboratory* CBC w/ Auto Diff 07/21/22 Radiology* MA Mamm Screen w/CAD if perf and 3D [place] 04/21/22 [facility] 11-07-2022 Evaluation + Plan note Future Scheduled Tests Laboratory* CBC w/ Auto Diff 07/21/22 [facility]11-07-2022 Hospital Discharge instructions Patient Education [...] Follow these instructions at home: Medicines Take pdrh-hwa-omyoeol and prescription medicines only as told by your health care provider or pharmacist. Ask your pharmacist what vqkv-gru-idcnsgc cold medicines you should avoid. Some medicines [...] a problem, search for a local or formerly [facility] mental health care center. Public mental [...] 12/31/2017 Document Revised: 12/23/2019 Document Reviewed: 12/31/2017 Goko Patient Education 2020 MyWave. 07/21/2022 11:21:57 Tobacco Use Disorder Tobacco Use [...] reduces withdrawal symptoms. NRT is available as: ?Jkbd-nbn-bkjnaga gums, lozenges, and skin patches. ?Prescription mouth [...] recovery for many people. General instructions Take qjpq-kde-mpphurz and prescription medicines only as told by your health care provider. Check with your health care provider before taking any new prescription or ksvn-yhg-wktocwf medicines. Decide on a friend, family member, or smoking quit-line (such as 4-696-HDVA-NOW in the [place] that you can call [...] 05/06/2005 Document Revised: 08/18/2018 Document Reviewed: 08/18/2018 Goko Patient Education 2020 Goko Inc. 07/21/2022 11:21:55 BMI for Adults BMI for [...] height. This can be done either in Nepalese ([place] or metric measurements. Note that charts are available to help you find your BMI quickly and easily without having to do these calculations yourself. To calculate your BMI in Nepalese ([place].) measurements, your health care provider will: [...] medical problems. BMI can be measured using Nepalese measurements or metric measurements. To interpret your [...] 05/12/2005 Document Revised: 08/13/2018 Document Reviewed: 07/14/2018 Goko Patient Education 2020 MyWave. 07/21/2022 11:21:53 Leukocytosis Leukocytosis Leukocytosis means that [...] Follow these instructions at home: Medicines Take lzwo-opg-owgcvjp and prescription medicines only as told by [...] 08/19/2012 Document Revised: 05/26/2019 Document Reviewed: 05/26/2019 Goko Patient Education 2020 MyWave. Follow Up Care 07/18/2022 10:46:12 With:Aimee Walker CNP Address: When: only if needed [facility] 11-04-2022 Miscellaneous Notes* Telephone Encounter - Cat Rojo LPN - 07/18/2022 11:04 AM EDT Call placed to patient, no answer. Left message for patient to proceed with nicotine testing prior to scheduling. Please transfer to plastic surgery nurse if patient returns call with questions. [facility] Evaluation + Plan note Future Scheduled Tests Radiology* MRI Breast w/o and w/ Contrast, Left 05/13/22 * MA Mamm Screen w/CAD if perf and 3D [place] 04/21/22 [facility] [place] 08-30-2022 Hospital Discharge instructions Patient Education 05/13/2022 [...] ?Hypothyroidism. ?Polycystic ovarian syndrome (PCOS). ?Binge-eating disorder. ?[place] syndrome. Taking certain medicines, such as steroids, [...] and how much exercise you get. Take ulhh-dig-hqyttfm and prescription medicines only as told by [...] 10/08/2005 Document Revised: 05/05/2019 Document Reviewed: 05/05/2019 Goko Patient Education 2019 MyWave. [facility] [place] [phone] Evaluation + Plan note Future Scheduled Tests Radiology* MA Mamm Screen w/CAD if perf and 3D [place] 04/21/22 [facility]08-08-2022 Hospital Discharge instructions Patient Education [...] height. This can be done either in [place]alese ([place] or metric measurements. Note that charts are available to help you find your BMI quickly and easily without having to do these calculations yourself. To calculate your BMI in Nepalese ([place] measurements, your health care provider will: [...] medical problems. BMI can be measured using Nepalese measurements or metric measurements. To interpret your [...] 05/12/2005 Document Revised: 08/13/2018 Document Reviewed: 07/14/2018 Goko Patient Education 2020 MyWave. 04/21/2022 10:14:51 Lymphadenopathy Lymphadenopathy Lymphadenopathy means that [...] at home: Get plenty of rest. Take zumb-xbx-fpvpolq and prescription medicines only as told by your health care provider. Your health care provider may recommend eibc-hca-wkkqnax medicines for pain. If directed, apply heat [...] 06/09/2009 Document Revised: 08/13/2018 Document Reviewed: 07/16/2018 Goko Patient Education 2020 MyWave. 04/21/2022 10:14:49 Tobacco Use Disorder Tobacco Use [...] reduces withdrawal symptoms. NRT is available as: ?Wpkq-gbc-xwvmiuz gums, lozenges, and skin patches. ?Prescription mouth [...] recovery for many people. General instructions Take ivda-bru-hlbzyzv and prescription medicines only as told by your health care provider. Check with your health care provider before taking any new prescription or axva-edf-zosimjk medicines. Decide on a friend, family member, or smoking quit-line (such as 7-877-OAIT-NOW in the [place] that you can call [...] 05/06/2005 Document Revised: 08/18/2018 Document Reviewed: 08/18/2018 Goko Patient Education 2020 [employer] Follow Up Care 04/17/2022 09:51:05 With:Aimee Walker CNP Address: When: only if needed [facility] 08-07-2022 Hospital Discharge instructions [...] at home: Get plenty of rest. Take siap-ydg-nxvwidz and prescription medicines only as told by your health care provider. Your health care provider may recommend ulkp-yos-wlvhteb medicines for pain. If directed, apply heat [...] 06/09/2009 Document Revised: 08/13/2018 Document Reviewed: 07/16/2018 Goko Patient Education 2020 MyWave. Follow Up Care 04/20/2022 14:55:22 With:Aimee Walker Address: [address] [place] [address], [place] [address] [phone] Business (1) When:04/23/2022 16:08:48 Comments:Follow-up with your primary care provider in 3 to 5 days. If symptoms worsen, do not improve, or new symptoms arise please report back to emergency department for further evaluation. [facility]08-07-2022 Evaluation + Plan noteExtracted from: Title:ED Note Author:Dony Alegre PA-C te:04/20/22 Axillary lymphadenopathy (R5 9.0: Localized enlarged lymph nodes) Orders: naproxen, 500 mg = 1 tab(s), Oral, BID, PRN for pain, # 20 tab(s), Refills(s) 0, Pharmacy: [facility]/pharmacy #[id number], 170, cm, 04/20/22 15:01:00 EDT, Height/Length Dosing, 81.5, kg, 04/20/22 15:01:00 EDT, Weight Dosing Automated Diff Basic Metabolic Panel CBC w/ Auto Diff eGFR XR Chest 2 Views Future Appointments Appointment Date:04/21/2022 09:40:00 AM Scheduled Provider:Aimee Walker CNP Location:[facility] Appointment Type: Open [facility]07-21-2022 Hospital Discharge instructions Patient Education [...] 03/15/2012 Document Revised: 08/24/2019 Document Reviewed: 08/24/2019 Goko Patient Education 2019 MyWave. Follow Up Care 04/03/2022 16:59:04 With:Aimee Walker CNP Address: [phone] When:04/06/2022 [facility]06-17-2022 Miscellaneous Notes* Telephone Encounter - Lina Chavez RN - 02/28/2022 3:[address] Mckee, patient must be 4 weeks nicotine free prior to scheduling and collection of cosmetic payment. documented in this [facility]Children[facility] History of Present illness Narrative* Amee Gonzalez PA-C - 02/12/2022 10:38 AM EDT Images from the original note were not included. Otolaryngology Consultation/Evaluation Note Head and Neck [place] ASSESSMENT: Burning tongue (primary encounter diagnosis) Irritation of oral cavity PLAN: - Oral mucosa at floor of mouth, [place]'s ducts, and frenulum irritated with mild erythema [...] Take 40 mg by mouth once daily. ikgizfmldiwf-zkn-ukae-FA-vit K (BARIATRIC MULTIVITAMINS) 45 mg iron- 800 [...] where noted below: GENERAL: On physical examination Shaziadion Chou is a well-developed, well nourished female. [...] and tender to palpation specifically around b/l [place]'s ducts and frenulum. Ventral aspect of tongue [...] Level: 3 - Low documented in this [facility]Children[facility] Hospital Discharge instructions Patient Education 02/06/2022 09:33:48 [...] reduces withdrawal symptoms. NRT is available as: ?Tfqx-ynj-gnkpqkx gums, lozenges, and skin patches. ?Prescription mouth [...] recovery for many people. General instructions Take tdcn-wep-exmgffo and prescription medicines only as told by your health care provider. Check with your health care provider before taking any new prescription or onnf-vdi-uqegrhv medicines. Decide on a friend, family member, or smoking quit-line (such as 5-443-TOMT-NOW in the [place] that you can call [...] 05/06/2005 Document Revised: 08/18/2018 Document Reviewed: 08/18/2018 Goko Patient Education 2020 MyWave. 02/06/2022 09:33:46 BMI for Adults BMI for [...] height. This can be done either in [place]alese ([place].) or metric measurements. Note that charts are available to help you find your BMI quickly and easily without having to do these calculations yourself. To calculate your BMI in [place]alese ([place].) measurements, your health care provider will: [...] medical problems. BMI can be measured using Nepalese measurements or metric measurements. To interpret your [...] 05/12/2005 Document Revised: 08/13/2018 Document Reviewed: 07/14/2018 Goko Patient Education 2020 [employer] Follow Up Care 02/05/2022 13:43:34 With:Aimee Walker CNP Address: When: only if needed [facility] 05-18-2022 Hospital Discharge instructions [...] height. This can be done either in [place]alese ([place].) or metric measurements. Note that charts are available to help you find your BMI quickly and easily without having to do these calculations yourself. To calculate your BMI in [place]alese ([place] measurements, your health care provider will: [...] medical problems. BMI can be measured using Nepalese measurements or metric measurements. To interpret your [...] 05/12/2005 Document Revised: 08/13/2018 Document Reviewed: 07/14/2018 Goko Patient Education 2020 MyWave. 01/29/2022 11:02:54 Complicated Grief Complicated Grief Grief [...] friends and loved ones. General instructions Take ssnx-vts-eglfazn and prescription medicines only as told by [...] 08/31/2006 Document Revised: 08/13/2018 Document Reviewed: 06/16/2018 Goko Patient Education 2020 MyWave. 01/29/2022 11:02:50 Alcohol Abuse and Dependence Information, [...] find support Your health care provider. [employer]: www.smartrecovery.org Therapy and support groups Local treatment centers or chemical dependency counselors. Local AA groups in your community: www.aa.org Where to find more information Centers for Disease Control and Prevention: www.cdc.gov National [place] on Alcohol Abuse and Alcoholism: www.niaaa.nih.gov Alcoholics [...] 08/25/2017 Document Revised: 12/20/2019 Document Reviewed: 11/08/2019 Goko Patient Education 2019 MyWave. 01/29/2022 11:02:46 Managing Bipolar Disorder Managing Bipolar [...] Follow these instructions at home: Medicines Take vyhg-uwn-kukquyi and prescription medicines only as told by your health care provider or pharmacist. Ask your pharmacist what tmjl-avz-yywztaq cold medicines you should avoid. Some medicines [...] a problem, search for a local or [facility] mental health care center. Public mental [...] Document Reviewed: 12/31/2017 Elsevier Patient Education 2020 Goko Inc. [facility] 05-02-2022 Miscellaneous Notes* Telephone Encounter - Lina Chavez RN - 01/13/2022 10:22 AM EDT Spoke with patient at this time via phone call. Patient contacting office to discuss options for abdominal surgical intervention. Per Dr. Mckee's office note; recommended abdominoplasty; quoted alegre as needed. This RN educated patient on [...] another consult she would. Please advise at [phone] documented in this encounterChildren[facility]-2022 Miscellaneous Notes* Telephone Encounter - Rocio Hester [...] understood. Rocio Hester Ma documented in this encounterChildren[facility]-2021 History of Present illness Narrative* Radha Jara - 02/01/2021 9:47 AM EDT CLINICAL PHARMACY NOTE: MEDS TO BEDS Total # of Prescriptions Filled: 2 The following medications were delivered to the patient: Percocet 5-325mg Augmentin 875-125mg Additional Documentation: delivered to patient in room 236 02/01 at 9:44am. Co- pay paid with credit on [employer] ($4.31). * Gamaliel Harris, - 01/31/2021 6:29 AM EDT Bariatric Surgery [...] Advance diet Overall improvement * Yvonne Singh [facility] - 01/30/2021 9:03 PM EDT Images from [...] Singh RPH 19:00 PM documented in this [facility] Phone: 1(756) 438-817405-15-2021 History of Present illness Narrative* Jasmine Burch RN - 01/26/2021 1:51 PM EDT Infusion complete, no complications, IV out and dressing applied. Encouraged patient to call with any questions. Patient left unit with steady gait to private residence. documented in this encounterOhio[facility] Phone: 1(326) 683-375204-27-2021 History of Present illness Narrative* Radha Jara - 01/08/2021 5:59 PM EDT CLINICAL PHARMACY NOTE: MEDS TO [facility] Select Patient?: No Total # of Prescriptions Filled: 3 The following medications were delivered to the patient: Percocet 5-325mg Promethazine 25mg Pantoprazole 40mg Total # of Interventions Completed: 0 Time Spent (min): 0 Additional Documentation: delivered to patient in room 247 01/08 at 5:43pm. Co- pay paid with [employer] ($7.02). * Gal Atwood DO - 01/08/2021 [...] Morbid obesity with BMI of 40.0-44.9, adult ([facility]) [E66.01, Z68.41] 05/16/2020 30 y.o. female postop [...] obtained for OR 01-07-21 documented in this [facility] Phone: [phone]) 521-851404-27-2021 Hospital Discharge instructions* Instructions* Gamaliel Harris, - 01/08/2021 Discharge Instructions for Surgery You had a Tian-en- Y Gastric Bypass (96369) surgery to treat obesity. Recovery from this [...] scheduled appointment, please call the office at [phone]. Call Your Doctor If Any of the [...] emergency, call 911 immediately. documented in this [facility] Phone: 1(868) 429-325004-12-2021 Hospital Discharge instructions* Instructions* Mahesh Price APRN - LANE ATTENDANT - 12/24/2020 Images from the original note [...] drive you home after your procedure. Your refrigerated company driver must be 18 years of age [...] questions, call the Pre-Admission Testing Unit at [phone]. Day of Surgery/Procedure As a patient at [facility] you can expect quality medical and nursing care that is centered on your individual needs. Our goal is to make your surgical experience as comfortableas possible . Directions to the Surgery Center [facility] is located at [address] [place] [address]. Please pull into the Emergency parking lot and stop at the emc storage architect arcos. We offer free emc storage architect service for all our surgery patients, if you choose not to have emc storage architect parking we have additional parking across the street.You will enter the facility following the [facility] sign. Please stop at the receptionist scheduler desk where you will be checked in by the staff. If you have any questions please call [phone]. Transportation after your procedure. You will need a friend or family member to drive you home after your procedure. Your refrigerated company driver must be18 years of age or [...] You may shave your face or neck. [place] your teeth but do not swallow water. [...] or the day of surgery, please call [phone], or [phone] documented in this [facility] Phone: 1(189) 599-573404-12-2021 History of Present illness Narrative* Mahesh Price, CASH [employer]OP FARMER - LANE ATTENDANT - 12/24/2020 10:30 AM EDT Anesthesia Focused [...] Destin Nicole for therapy Borderline personality disorder ([facility]) [facility], therapist Destin Nicole Depression Flat feet, bilateral Foot pain, bilateral Dr. Octavio Sims, market development director GERD (gastroesophageal reflux disease) managed by Dr. [...] BLEVINS 12/24/20 11:38 AM documented in this [facility] Work Phone: evaluation + Plan note No data available for this section [facility] Primary Care Evaluation + Plan note Referrals to Other Providers Referred by: Aimee Walker CNP [facility] Primary Care Evaluation + Plan note Future Appointments Appointment Date:04/04/2022 02:40:00 PM Scheduled Provider:Rahul Salinas DO Location[facility] Future Appointments Appointment Date:04/22/2022 09:15:00 AM Scheduled Provider: Location[facility] Appointment Type:MA Diagnostic (FT) Appointment Date:04/22/2022 10:00:00 AM Scheduled Provider: [facility] Appoint[facility] Type:US Breast (FT) Future Scheduled Tests Radiology* US Breast Unilateral Lt Complete 04/21/22 * US Breast Unilateral Rt Complete 04/21/22 * MA Mamm Diag w/CAD if perf and 3D Tan[place] 04/22/22 * MA Mamm Screen w/CAD if perf and 3D [place] 04/21/22 [facility] Primary [facility] Evaluation + Plan note Future Appointments Appointment Date:08/22/2022 10:20:00 AM Scheduled Provider:Rahul Salinas DO Location:[facility] Appointment Type: Hospital Follow Up w/TCM Future Scheduled Tests Laboratory* CBC w/ Auto Diff 07/21/22 Radiology* MA Mamm Screen w/CAD if perf and 3D [place] 04/21/22 [facility] Future Appointments Appointment Date:11/03/2022 01:00:00 PM Scheduled Provider:Nakia Shah Location:[facility] Appointment Type:FM Open Future Scheduled Tests Laboratory* CBC w/ Auto Diff 07/21/22 Radiology* MA Mamm Screen w/CAD if perf and 3D [place] 04/21/22 [facility] Future Appointments Appointment Date:01/02/2023 10:00:00 AM Scheduled Provider:Nakia Shah Location:[facility] Appointment Type:FM Open Future Scheduled Tests Laboratory* CBC w/ Auto Diff 07/21/22 Radiology* MA Mamm Screen w/CAD if perf and 3D Tan[place] 04/21/22 [facility] Primary [facility] Evaluation + Plan note Future Appointments Appointment Date:12/05/2022 09:00:00 AM Scheduled Provider: Location:[facility] Appointment Type:Surgery FT Appointment Date:01/02/2023 10:00:00 AM Scheduled Provider:Nakia Shah Location:[facility] Appointment Type: Open Future Scheduled Tests Laboratory* CBC w/ Auto Diff 07/21/22 Radiology* MA Mamm Screen w/CAD if perf and 3D [place] 04/21/22 [facility] Future Appointments Appointment Date:12/25/2023 10:15:00 AM Scheduled Provider:Otto Larsen MD [facility] Type:Cardiology New Patient (FT) [facility] [place] [facility]* Diagnosis Preop testing- Primary Preoperative examination, unspecified documented in this encounter [employer] Phone: evaluation note* Diagnosis Post-op pain- Primary Other acute postoperative pain Status post gastric bypass for obesity Bariatric surgery status Morbid obesity with BMI of 40.0-44.9, adult (HCC) Hiatal hernia Diaphragmatic hernia without mention of obstruction or gangrene documented in this encounter [employer] Phone: evaluation note* Diagnosis Dehydration documented in this encounter [employer] Phone: evalldvdbv note* Diagnosis Generalized abdominal pain- Primary Abdominal pain, generalized documented in this encounter [employer] Phone: evaluation note* Diagnosis Surgery, elective- Primary Unspecified elective surgery for purposes other than remedying health states Omental infarction (HCC) Acute vascular insufficiency of intestine Intra-abdominal abscess (HCC) Peritoneal abscess documented in this encounter [employer] Phone: evaldhsqun note* Diagnosis Omental infarction (HCC) Acute vascular insufficiency of intestine documented in this encounter [employer] Phone: evalucaitx note* Diagnosis Hypertrophy of breast- Primary Upper back pain Excess skin [facility]* Diagnosis Burning tongue- Primary Glossodynia Irritation of oral cavity Other and unspecified diseases of the oral soft tissues [facility] this encounter [facility]* Diagnosis Onset Date Resolution Status Bipolar 1 disorder acute Blurry vision acute Borderline personality disorder acute Headache acute MDD (major depressive disorder) acute Palpitation acute [facility] Work Phone: Evaluation note* Diagnosis Idiopathic intracranial hypertension- Primary Benign intracranial hypertension Depression, unspecified depression type Primary hypertension Unspecified essential hypertension Hx of gastric bypass Bariatric surgery status H/O foot surgery Personal history of surgery to other organs documented in this encounter [facility] noteNo assessment information [facility] Work Phone: Evaluzuled noteNo InformationNouniversity health [facility] [employer] Other Evaluation note* Diagnosis Panic disorder- Primary Panic disorder without agoraphobia Borderline personality disorder (HCC) Borderline personality disorder Bipolar affective disorder in remission (HCC) Chronic alcoholism in remission (HCC) Other and unspecified alcohol dependence, in remission Routine health maintenance Routine general medical examination at a health care facility documented in this encounter [facility]* Diagnosis Panic disorder- Primary Panic disorder without agoraphobia documented in this encounter [facility]* Diagnosis Routine health maintenance- Primary Routine general medical examination at a health care facility Class 1 obesity due to excess calories without serious comorbidity with body mass index (BMI) of 30.0 to 30.9 in adult Family history of pancreatic cancer Family history of malignant neoplasm of gastrointestinal tract Family history of cancer Family history of unspecified malignant neoplasm Mass of upper outer quadrant of left breast Dermatitis Contact dermatitis and other eczema, due to unspecified cause History of hysterectomy Acquired absence of both cervix and uterus Chronic alcoholism in remission (HCC) Other and unspecified alcohol dependence, in remission Panic disorder Panic disorder without agoraphobia Idiopathic intracranial hypertension Benign intracranial hypertension Bipolar affective disorder in remission (HCC) Borderline personality disorder (HCC) Borderline personality disorder Anxiety disorder, unspecified type documented in this encounter [facility] [place] [facility]* Diagnosis 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 documented in this [facility] general Narrative - Reported* Type Description Date Medical History plantar fasciitis Medical History migraine headache Medical History borderline personality disorder Medical History chronic depression Medical History bipolar Surgical History C section Surgical History c section Surgical History tubal ligation Surgical History HYSTERECTOMY Surgical History oral surgery Surgical History gastric bypass Hospitalization History mental health issues [employer] Other History general Narrative - Reported* Type Description Date Medical History plantar fasciitis Medical History migraine headache Medical History borderline personality disorder Medical History chronic depression Medical History bipolar Surgical History C section Surgical History c section Surgical History tubal ligation Surgical History HYSTERECTOMY Surgical History oral surgery Surgical History gastric bypass Hospitalization History mental health issues Hospitalization History [facility] [place] 11/13 023 [employer] [facility] [address] Other Hospital Discharge instructions No data available for this section [facility] Progress note No data available for this section [facility] Assessments Diagnosis Preoperative testing Preoperative examination, unspecified Diagnosis Gastroesophageal reflux disease with esophagitis without hemorrhage Advance Directives No Advanced Directives Records FoundDocuments on File Type Date Recorded Patient Locker Room Clerk Expl anation ACP-Advance Directive ACP-Power of Cleater Documents on File Type Date Recorded Patient Locker Room Clerk Expl anation ACP-Advance Directive ACP-Power of Cleater Latest Code Status on File Code Status [...] Date/ Time Advance Directives No January 08, 6:21pm Advance Directive Response Recorded Date/ Time [...] questions, PLEASE call your doctor or the [facility] at documented in this encounter Reason for Referral Status Reason Specialty Diagnoses / Procedures Referre d By Contact Referred To Contact Closed Radiology Diagnoses Omental infarction (HCC) Procedures CT ABDOMEN PELVIS W IV CONTRAST Additional Contrast? Oral Gamaliel Harris DO [address] [place] [address] Specialty Diagnoses / Procedures Referred By Contac t Referred To Contact Ophthalmology Diagnoses Idiopathic intracranial hypertension Procedures CONSULT TO OPHTHALMOLOGY OFFICE/OUTPATIENT [facility] 60-74 MINUTES Eileen Manzano MD [address] [place] [address] Referral ID Status Reason Start Date Expiration Date Visits Requested Visits Authorized [id number] Authorized PCP Requested Referral 11/20/2022 11/20/2023 1 1 Specialty Diagnoses / Procedures Referred By Contac t Referred To Contact MR IMAGING Diagnoses Idiopathic intracranial hypertension Procedures MRV BRAIN WO/W IVCON MRA; HEAD W & WO CONTRAST Eileen Manzano MD [address] [place] [address] Mr Imaging Referral ID Status Reason Start Date Expiration Date Visits Requested Visits Authorized [id number] Pending Review Auto-Generat ed Referral 11/20/2022 12/20/2023 1 1 Specialty Diagnoses / Procedures Referred By Contac t Referred To Contact MR IMAGING Diagnoses Mass of upper outer quadrant of left breast Procedures MRI BREAST BX WO/W IVCON LEFT BX BREAST W/DEVICE 1ST [place] [address] [place] [address] [place] [address] Referral ID Status Reason Start Date Expiration Date Visits Requested Visits Authorized [id number] Pending Review Auto-Generat ed Referral 03/08/2024 04/07/2025 1 1 Specialty Diagnoses / Procedures Referred By Contac t Referred To Contact Diagnoses Class 1 obesity due to excess calories without serious comorbidity with body mass index (BMI) of 30.0 to 30.9 in adult Procedures ENDOCRINE MEDICAL WEIGHT MANAGEMENT OFFICE/OUTPATIENT [facility] [address] [place] [address] [place] [address] Referral ID Status Reason Start Date Expiration Date Visits Requested Visits Authorized [id number] Authorized PCP Requested Referral 03/08/2024 03/08/2025 1 1 Specialty Diagnoses / Procedures Referred By Contac t Referred To Contact MR IMAGING Diagnoses Pancreas cyst Procedures MRI 3D POST PROCESSING 3D RENDERING W/INTERP&POSTPROC DIFF WORK STATION Leonela Grossman MD [address] [phone] [facility] [place] [address] Referral ID Status Reason Start Date Expiration Date V isits Requested Visits Authorized [id number] Closed Auto-Generate d Referral 08/31/2023 09/29/2024 1 1 Specialty Diagnoses / Procedures Referred By Contac t Referred To Contact MR IMAGING Diagnoses Pancreas cyst Procedures MRI PANC/TANMAY WO/W IVCON MRI ABDOMEN W/O & W/CONTRAST MATERIAL Leonela Grossman MD [address] [phone] [facility] [place] [address] Referral ID Status Reason Start Date Expiration Date V isits Requested Visits Authorized [id number] Closed Auto-Generate d Referral 03/01/2024 03/31/2024 1 1 Chief Complaint and Reason for [...] nausea Chief Complaint lightheaded, dizzy, chest pressure Chief Complaint lightheaded, dizzy, chest pressure mental eval Chief Complaint lightheaded, dizzy, chest pressure mental eval trouble breathing Additional Source Comments INFORMATION SOURCE (unrecogn ized section and content) DATE CREATED AUTHOR 10/06/2020 [employer] [facility] DATE CREATED AUTHOR AUTHOR'S GONZALEZ YOUNG 01/06/[address] [facility] DATE CREATED AUTHOR AUTHOR'S ORGANIZ ATION 08/16/2022 [facility] DATE CREATED AUTHOR AUTHOR'S ORGANIZ ATION 11/15/2022 [facility] DATE CREATED AUTHOR AUTHOR'S ORGANIZ ATION 08/17/2023 [facility] DATE CREATED AUTHOR AUTHOR'S ORGANIZ ATION 09/04/2023 [facility] DATE CREATED AUTHOR AUTHOR'S ORGANIZ ATION 10/26/2023 [facility] DATE CREATED AUTHOR AUTHOR'S ORGANIZ ATION 01/12/2024 [facility] DATE CREATED AUTHOR AUTHOR'S ORGANIZ ATION 01/14/2024 [facility] DATE CREATED AUTHOR AUTHOR'S ORGANIZ ATION 03/09/2024 [facility] DATE CREATED AUTHOR AUTHOR'S ORGANIZ ATION 03/12/2024 [facility] Reason for Visit (unrecogniz ed section and content) Status Reason Specialty Diagnoses / Procedures Re ferred By Contact Referred To Contact Diagnoses GERD (gastroesophageal reflux disease) GERD/OBESITY Procedures ME ESOPHAGOGASTRODUODENOSCOPY TRANSORAL DIAGNOSTIC EGD ESOPHAGOGASTRODUODENOSCOPY Gamaliel Harris DO [address] [address] [facility] Status Reason Specialty Diagnoses / Procedures Referre d By Contact Referred To Contact Closed Radiology Diagnoses Gastro-esophageal reflux disease with esophagitis, without bleeding Procedures CHG RADIOLOGIC EXAM UPR GI TRC SINGLE CONTRAST STUDY Gamaliel Harris DO [address] [place] [phone] [facility] Radiology [address] [place] [id number] Status Reason Specialty Diagnoses / Procedures Referre d By Contact Referred To Contact Diagnoses Morbid obesity (HCC) GERD (gastroesophageal reflux disease) MORBID OBESITY, GERD Procedures ME LAP GASTRIC BYPASS/TIAN-EN-Y XI LAPAROSCOPIC ROBOTIC GASTRIC BYPASS TIAN-EN-Y, LIVER BIOPSY, EGD- GI UNIT SCHEDULED. Gamaliel Harris DO [address] [place] [phone] [facility] Reason Comments Abdominal Pain Diffuse cramping and bloating. Onset 2 days ago. Pt reports she is 3.5weeks post Gastric bypass. Last BM this AM Reason Comments Abdominal Pain possible abscess Status Reason Specialty Diagnoses / Procedures Referre d By Contact Referred To Contact Diagnoses Intra-abdominal abscess (HCC) Omental infarction (HCC) Gamaliel Harris DO [address] [place] [phone] [facility] Status Reason Specialty Diagnoses / Procedures Referre d By Contact Referred To Contact Closed Radiology Diagnoses Omental infarction (HCC) Procedures CT ABDOMEN PELVIS W IV CONTRAST Additional Contrast? Oral Gamaliel Harris DO [address] [place] [address] Reason Comments Orders Reason Comments Patient Question Appointment Reason Comments Mouth Sores blood in the back of throat Reason Comments Scheduling Reason Comments Appointment Reason Comments Headache Reason Comments Refill Request Specialty Diagnoses / Procedures Referred By Simona bailey Referred To Contact Diagnoses Gastroesophageal reflux disease, unspecified whether esophagitis present Obesity (BMI 30-39.9) Gastroesophageal reflux disease, unspecified whether esophagitis present [K21.9] Obesity (BMI 30-39.9) [E66.9] Procedures ME EGD TRANSORAL BIOPSY SINGLE/MULTIPLE ME ESOPHAGOGASTRODUODENOSCOPY TRANSORAL DIAGNOSTIC ME EGD BALLOON DILATION ESOPHAGUS <30 MM DIAM EGD BIOPSY Gamaliel Harris DO [address] [place] [address] [facility] [address] [place] [address] Referral ID Status Reason Start Date Expiration Date Visits Re quested Visits Authorized [id number] 1 1 Reason Comments Establish Care Panic attacks , SOB ( Chest tightness ) Reason Comments Physical Gastric by pass surg luis 3 yrs ago and wants to talk about how to help with weight loss.Rash on right upper thigh. Reason Comments Radiology MRI Specialty Diagnoses / Procedures Referred By Contac t Referred To Contact MR IMAGING Diagnoses Pancreas cyst Procedures MRI PANC/TANMAY WO/W IVCON MRI ABDOMEN W/O & W/CONTRAST MATERIAL Leonela Grossman MD [address] [place] [address] [place] [address] Referral ID Status Reason Start Date Expiration Date V isits Requested Visits Authorized [id number] Closed Auto-Generate d Referral 03/01/2024 03/31/2024 1 1 Ordered Prescriptions (unrec ognized section [...] 1426 (New Bag - Prov ider: Yanelis Martínez, RN)1500 (Stopped - Provider: Yanelis Martínez RN) Continuous Medication Order 01/28/2021 01/29/2021 01/30/2021 0.9 % sodium chloride infusion 1,000 mL, Intravenous, at 125 mL/hr, Administer over 8 Hours, CONTINUOUS, Starting on Thu01/30/21 at 1015 1043 (New Bag - Prov ider: Judy Reeder RN)1515 (Patient Transferred to Other Facility - Provider: Judy Reeder RN) PRN Medication Order 01/28/2021 01/29/2021 01/30/2021 [...] 1708 (New Bag - Provider: Annita Guevara, MARCO)1901 (Stopped - Provider: Annita Guevara RN) enoxaparin (LOVENOX) injection 40 mg 40 mg, Subcutaneous, EVERY 12 HOURS SCHEDULED (2 times per day), First dose on Thu01/30/21 at 2200 2315 (Held - Provider: Heather Palacois RN - Reason: Patient/family refused) 0938 (Given - Provider: Wei Carter RN)2100 (Due) 0831 (Given - Provider: Bonnie [...] specifically ordered. 1707 (Given - Provider: Annita Guevara RN) fentaNYL (SUBLIMAZE) injection 50 mcg (COMPLETED) [...] RN) 0404 (Given - Provider: Rita Klein RN)0832 (Given - Provider: Bonnie Ruiz RN) [...] dose, Starting on Thu09/18/23 at 0823, Until Thu09/19/23 at 0823, Nausea, Initial antiemetic therapy., PACU [...] or prosecute any alcohol or drug abuse patient.[facility] the event this information is protected by the Federal Confidentiality of Alcohol and Drug Abuse Patient Records regulations: The Federal rules restrict any use of the information to criminally investigate or prosecute any alcohol or drug abuse patient.[facility] the event this information is protected by the Federal Confidentiality of Alcohol and Drug Abuse Patient Records regulations: The Federal rules restrict any use of the information to criminally investigate or prosecute any alcohol or drug abuse patient.[facility] the event this information is protected by the Federal Confidentiality of Alcohol and Drug Abuse Patient Records regulations: The Federal rules restrict any use of the information to criminally investigate or prosecute any alcohol or drug abuse patient.[facility] the event this information is protected by the Federal Confidentiality of Alcohol and Drug Abuse Patient Records regulations: The Federal rules restrict any use of the information to criminally investigate or prosecute any alcohol or drug abuse patient.[facility] the event this information is protected by the Federal Confidentiality of Alcohol and Drug Abuse Patient Records regulations: The Federal rules restrict any use of the information to criminally investigate or prosecute any alcohol or drug abuse patient.[facility] the event this information is protected by the Federal Confidentiality of Alcohol and Drug Abuse Patient Records regulations: The Federal rules restrict any use of the information to criminally investigate or prosecute any alcohol or drug abuse patient.[facility]In the event this information is protected by the Federal Confidentiality of Alcohol and Drug Abuse Patient Records regulations: The Federal rules restrict any use of the information to criminally investigate or prosecute any alcohol or drug abuse patient.[facility] the event this information is protected by the Federal Confidentiality of Alcohol and Drug Abuse Patient Records regulations: The Federal rules restrict any use of the information to criminally investigate or prosecute any alcohol or drug abuse patient.[facility] the event this information is protected by the Federal Confidentiality of Alcohol and Drug Abuse Patient Records regulations: The Federal rules restrict any use of the information to criminally investigate or prosecute any alcohol or drug abuse patient.[facility] the event this information is protected by the Federal Confidentiality of Alcohol and Drug Abuse Patient Records regulations: The Federal rules restrict any use of the information to criminally investigate or prosecute any alcohol or drug abuse patient.[facility] ColumbusIn the event this information is protected by [...] or prosecute any alcohol or drug abuse patient.[facility] Care Team (unrecognized sect ion and content) [...] Provider, Other Pr ovider Active Dorita Niño ANP-BC Other Provider Active Kenrick Lee , DO Other Provider Active Shasta Zaragoza APRN Other Provider Active ASTON Marvin Other Provider Active Lizzeth Malave MD Attending Provider Active Team Status: Inactive Member Role Status Dates Jennie Ames , DO Primary Care Provider Active DIANNE Bro-BC Attending Provider Active Team Status: Inactive Member Role Status Dates Jennie Ames , DO Primary Care Provider Active Jose Maria Nair , DO Emergency Provider Active Team Status: Inactive Member Role Status Dates Jennie Ames , DO Primary Care Provider Active Yoli Norris MD Emergency Provider Active Dermatology Nurse Practitioner Relationship Specialty Start Date End Date Jennie Ames DO [address] [facility] [place] [id number] PCP - General Family Medicine 11/19/22 Team Status: Inactive Member Role Status Dates Jennie Ames DO Primary Care Provider Active S tart: December 10, 2023 End: December 10, 2023 Marii Christiansen MD Emergency Provider Active Start: December 10, 2023 End: December 10, 2023 Team Status: Inactive Member Role Status Dates Jennie Ames DO Primary Care Provider Active S tart: December 24, 2023 End: December 24, 2023 Jose Maria Nair DO Emergency Provider Active St art: December 24, 2023 End: December 24, 2023 Team Status: Inactive Member Role Status Dates Jennie Ames DO Primary Care Provider Active S tart: December 31, 2023 End: December 31, 2023 Kenny Javed APRN Emergency Provider Active Start: December 31, 2023 End: December 31, 2023 Dermatology Nurse Practitioner Relationship Specialty [place] [address] [place] [address] PCP - General Family Medicine 01/04/24 Nilo Prado MD [address] [place] [id number] Referring Gastroenterology 08/17/23 Dermatology Nurse Practitioner Relationship Specialty [place] [address] [place] [address] PCP - General Family Medicine 01/04/24 Nilo Prado MD [address] [place] [id number] Referring Gastroenterology 08/17/23 Dermatology Nurse Practitioner Relationship Specialty [place] [address] [place] [address] PCP - General Family Medicine 01/04/24 Nilo Prado MD [address] [place] [id number] Referring Gastroenterology 08/17/23 Dermatology Nurse Practitioner Relationship Specialty [place] [address] [place] [address] PCP - General Family Medicine 01/04/24 Nilo Prado MD [address] [place] [id number] Referring Gastroenterology 08/17/23 Goals (unrecognized section and content) Goals may [...] BE BASED ON THE PRIMARY CLINICAL RECORDS. [employer] provides no warranty or guarantee of the accuracy or completeness of information in this document.
[2024-03-13 06:51] VITALS: BP 142/90; PULSE 69; TEMP 36.3; O2SAT 98; BMI 30.9
[2024-03-13] MEDS: KETOROLAC TROMETHAMINE 60 MG/2 ML VIAL IM (07:33)
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
[2024-03-13 08:08] VITALS: BP 133/90; PULSE 56; O2SAT 99
== END 2024-03-13 08:09 | disposition home or self-care (01) ==
PROVIDERS: Emergency Provider Emergency Medicine
DX: S39.012A Strain of muscle, fascia and tendon of lower back, initial encounter (principal); V43.52XA Car driver injured in collision with other type car in traffic accident, initial encounter; F17.200 Nicotine dependence, unspecified, uncomplicated
CPT/HCPCS: 96372; 99284; J1885

== ENCOUNTER 2024-04-08 06:29 | Emergency (ER) | payer MEDICARE, MEDICAID, SELFPAY ==
[2024-04-08 06:33] VITALS: BP 113/82; PULSE 82; TEMP 36.6; O2SAT 100; BMI 29.8
--- OUTSIDE RECORDS SUMMARY | 2024-04-08 06:41 | XMS_ITS | CCD ---
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 ####[facility] LABCLIA [id number] [address] LABCLIA [id number] [place] [address] Cholesterol in VLDL [Mass/Vol] 10 mg/dL Normal <30 [facility] Comment on above: Order Comment: Cecili men Type: BLOOD SPECIMENOrdering Facility: [facility] Address: [address] [place] [address] Performed By: #### 2 4331-1 ####[facility] LABCLIA [id number] [address] LABCLIA [id number] [place] [address] Cholesterol non HDL [Mass/Vol] 70 mg/dL Normal <130 [facility] Comment on above: Order Comment: Cecili men Type: BLOOD SPECIMENOrdering Facility: [facility] Address: [address] [place] [address] Result Comment: <130 mg/dL, Optimal 130-159 mg/dL, Near optimal/above optimal 160-189 mg/dL, Borderline high 190-219 mg/dL, High >219 mg/dL, Very high Secondary prevention optimal non HDL Cholesterol levels are recommended to be <100 mg/dL Performed By: #### 2 4331-1 ####[facility] LABCLIA [id number] [address] [address] [facility] LABCLIA [id number] [place] [address] Cholesterol.total/Cho lesterol in HDL [Mass ratio] 1.97 {ratio} Normal <5.10 [facility] Comment on above: Order Comment: Speci men Type: BLOOD SPECIMENOrdering Facility: [facility] Address: [address] [place] [address] Performed By: #### 2 4331-1 ####[facility] LABCLIA [id number] [address] LABCLIA [id number] [place] [address] FASTING TIME 12 hrs Normal [facility] Comment on above: Order Comment: Speci men Type: BLOOD SPECIMENOrdering Facility: [facility] Address: [address] [place] [address] Performed By: #### 2 4331-1 ####[facility] LABCLIA [id number] [address] LABCLIA [id number] [place] [address] Triglyceride [Mass/Vol] 51 mg/dL Normal <150 [facility] Comment on above: Order Comment: Speci men Type: BLOOD SPECIMENOrdering Facility: [facility] Address: [address] [place], [place] [address] Result Comment: <150 mg/dL, Normal 150-199 mg/dL, Borderline high 200-499 mg/dL, High >499 mg/dL, Very high Performed By: #### 2 4331-1 ####[facility] LABCLIA [id number] [place] [id number] [facility] LABCLIA [id number] [place] [address] CBC with Diffon 01-13-2024 Abs. Basophil 0.08 k/uL Normal 0.00-0.20 [facility] Comment on above: Performed By: #### ALFONSO PFEIFFER, CDP #### [facility] [employer] [address] [place] [address] Oncology Technician: Harpal Adair MD Abs.Imm.Granulocyte 0.05 k/uL Normal 0.00-0.30 [facility] Comment on above: Performed By: #### ALFONSO PFEIFFER, CDP #### [facility] [employer] [address] [place] [address] Oncology Technician: Harpal Adair MD Abs.Neutrophil (Seg) 7.68 k/uL Normal 1.50-8.10 [facility] Comment on above: Performed By: #### ALFONSO PFEIFFER, CDP #### [address] [address] Oncology Technician: Harpal Adair MD Basophils/100 WBC (Bld) 1 % Normal 0-2 [facility] Comment on above: Performed By: #### ALFONSO PFEIFFER, CDP #### [address] [address] Oncology Technician: Harpal Adair MD Eosinophils (Bld) [#/Vol] 0.25 10*3/uL Normal 0.00-0.44 [facility] Comment on above: Performed By: #### ALFONSO PFEIFFER, CDP #### [facility] [employer] [address] [place] [address] Oncology Technician: Harpal Adair MD Eosinophils/100 WBC (Bld) 2 % Normal 1-4 [facility] Comment on above: Performed By: #### ALFONSO PFEIFFER, CDP #### [facility] [employer] [address] [place] [address] Oncology Technician: Harpal Adair MD Erythrocyte distribution width (RBC) [Ratio] 18.6 % High 11.8-14.4 [facility] Comment on above: Performed By: #### ALFNOSO PFEIFFER, CDP #### [address] [address] Oncology Technician: Harpal Adair MD Hematocrit (Bld) [Volume fraction] 36.7 % Normal 36.3-47.1 [facility] Comment on above: Performed By: #### ALFONSO PFEIFFER, CDP #### [facility] [employer] [address] [place] [address] Oncology Technician: Harpal Adair MD Hemoglobin (Bld) [Mass/Vol] 11.3 g/dL Low 11.9-15.1 [facility] Comment on above: Performed By: #### ALFONSO PFEIFFER, CDP #### [address] [address] Oncology Technician: Harpal Adair MD Immature granulocytes/100 WBC (Bld) 0 % Normal 0 [facility] Comment on above: Performed By: #### ALFONSO PFEIFFER, CDP #### [address] [address] Oncology Technician: Harpal Adair MD Lymphocytes (Bld) [#/Vol] 2.30 10*3/uL Normal 1.10-3.70 [facility] Comment on above: Performed By: #### ALFONSO PFEIFFER, CDP #### [facility] [employer] [address] [place] [address] Oncology Technician: Harpal Adair MD Lymphocytes/100 WBC (Bld) 21 % Low 24-43 [facility] Comment on above: Performed By: #### ALFONSO PFEIFFER, CDP #### [facility] [employer] [address] [place] [address] Oncology Technician: Harpal Adair MD MCH (RBC) [Entitic mass] 28.4 pg Normal 25.2-33.5 [facility] Comment on above: Performed By: #### ALFONSO PFEIFFER, CDP #### [address] [address] Oncology Technician: Harpal Adair MD MCHC (RBC) [Mass/Vol] 30.8 g/dL Normal 28.4-34.8 [facility] Comment on above: Performed By: #### ALFONSO PFEIFFER, CDP #### [address] [address] Oncology Technician: Harpal Adair MD MCV (RBC) [Entitic vol] 92.2 fL Normal 82.6-102.9 [facility] Comment on above: Performed By: #### ALFONSO PFEIFFER, CDP #### [address] [address] Oncology Technician: Harpal Adair MD Monocytes (Bld) [#/Vol] 0.77 10*3/uL Normal 0.10-1.20 [facility] Comment on above: Performed By: #### ALFONSO PFEIFFER, CDP #### [address] [address] Oncology Technician: Harpal Adair MD Monocytes/100 WBC (Bld) 7 % Normal 3-12 [facility] Comment on above: Performed By: #### ALFONSO PFEIFFER, CDP #### [address] [address] Oncology Technician: Harpal dAair MD Neutrophil (Seg) 69 % High 36-65 [facility] Comment on above: Performed By: #### ALFONSO PFEIFFER, CDP #### [address] [address] Oncology Technician: Harpal Adair MD NRBC Automated 0.0 per 100 WBC Normal 0.0 [facility] Comment on above: Performed By: #### ALFONSO PFEIFFER, CDP #### [facility] [employer] [facility] [place] [address] Oncology Technician: Harpal Adair MD Platelet mean volume (Bld) [Entitic vol] 11.4 fL Normal 8.1-13.5 [facility] Comment on above: Performed By: #### ALFONSO PFEIFFER, CDP #### [facility] [employer] [address] [place] [address] Oncology Technician: Harpal Adair MD Platelets (Bld) [#/Vol] 387 10*3/uL Normal 138-453 [facility] Comment on above: Performed By: #### ALFONSO PFEIFFER, CDP #### [facility] [employer] [address] [place] [address] Oncology Technician: Harpal Adair MD RBC (Bld) [#/Vol] 3.98 10*6/uL Normal 3.95-5.11 [facility] Comment on above: Performed By: #### ALFONSO PFEIFFER, CDP #### [facility] [employer] [address] [place] [address] Oncology Technician: Harpal Adair MD RBC morphology finding Nom (Bld) ANISOCYTOSIS PRESENT Normal [facility] Comment on above: Performed By: #### ALFONSO PFEIFFER, CDP #### [facility] [employer] [address] [place] [address] Oncology Technician: Harpal Adair MD WBC (Bld) [#/Vol] 11.1 10*3/uL Normal 3.5-11.3 [facility] Comment on above: Performed By: #### ALFONSO PFEIFFER, CDP #### [facility] [employer] [address] [place] [address] Oncology Technician: Harpal Adair MD Ferritinon 01-13-2024 Ferritin [Mass/Vol] 9 ng/mL Low 13-150 [facility] Comment on above: Result Comment: FERRITIN Reference Ranges: Adult Males 20 - 60 years: 30 - 400 ng/mL Adult females 17 - 60 years: 13 - 150 ng/mL Adults greater than 60 years: no established reference range Pediatrics: no established reference range Performed By: #### ALFONSO PFEIFFER, CDP #### [employer] [address] [place] [address] Oncology Technician: Harpal Adair MD Iron Binding Cap.on 01-13-20 24 % Fe Saturation 9 % Low 20-55 [facility] Comment on above: Performed By: #### ALFONSO PFEIFFER, CDP #### [employer] [address] [place] [address] Oncology Technician: Harpal Adair MD Iron [Mass/Vol] 37 ug/dL Normal 37-145 [facility] Comment on above: Performed By: #### ALFONSO PFEIFFER, CDP #### [employer] [address] [place] [address] Oncology Technician: Harpal Adair MD Total Fe Binding Cap 390 ug/dL Normal 250-450 [facility] Comment on above: Performed By: #### ALFONSO PFEIFFER, CDP #### [employer] [address] [place] [address] Oncology Technician: Harpal Adair MD Unbound Fe Bind Cap 353 ug/dL High 112-347 [facility] Comment on above: Performed By: #### LAFONSO PFEIFFER, CDP #### [employer] [address] [place] [address] Oncology Technician: MD Ernesto Naylor 01-05-2024 GLORIA Telephone ([facility]) -------- SHAZIA CHOU ([id number]) 1990 F Date Time Provider Department 01/05/24 ELIA BAIRES [facility] During your visit today, we recorded [...] 60 mg by mouth once daily. - jedndgwvhdmx-phx-wxmv-FA -vit K (BARIATRIC MULTIVITAMINS) 45 mg iron- [...] Status:Closed by ELIA BAIRES on 01/05/24 Normal [facility] TOXICOLOGY SCRN W/CONF,URINE on 01-05-2024 Amphetamines Confirm (U) [Mass/Vol] Negative Negative [facility] Comment on above: Cutoff threshold at 1000 ng/mL. Barbiturates Urine Negative Negative [facility] Comment on above: Cutoff threshold at 200 ng/mL. Benzodiazepines Urine Negative Negative [facility] Comment on above: Cutoff threshold at 200 ng/mL. Cannabinoids Screen Ql (U) Sent for confirmation Abnormal Negative [facility] Comment on above: Cutoff threshold at 50 ng/mL. Cocaine Ql (U) Negative Negative [facility] Comment on above: Cutoff threshold at 300 ng/mL. Ethanol (U) [Mass/Vol] mg/dL NINF - 11 mg/dL [facility] Interpretation and review of laboratory results Abnormal [facility] Opiates Screen Ql (U) Negative Negative [facility] Comment on above: Cutoff threshold at 300 ng/mL. oxyCODONE cutoff Screen (U) [Mass/Vol] Negative Negative [facility] Comment on above: Cutoff threshold at 100 ng/mL. Phencyclidine Ql (U) Negative Negative [facility] Comment on above: Cutoff threshold at 25 ng/mL. Immunoassay screen o nly. Cross reactivity with other substances can occur with immunoassay screening. Detection of any drug(s) in this urine toxicology panel is presumptive only. These tests are for medical purposes only and should not be used for compliance monitoring, legal, or forensic use. [facility] CANNABINOID CONF, URon 01-03 Cannabinoids Confirm (U) [Mass/Vol] 153 ng/mL High <16 [facility] Comment on above: Order Comment: Speci men Type: URINE SPECIMENOrdering Facility: [facility] Address: [address] [place] [address] Result Comment: Tetr ahydrocannabinol carboxylic acid (THCA) is a metabolite of ztgmk-2-liswybhtkfbdolwflois which is the main active component of marijuana. Presence of THCA indicates use of marijuana. Performed By: #### C ANNCONFU ####[facility] [id number] [address] [place] ([facility]) Normal [facility] Comment on above: Order Comment: Speci men Type: URINE SPECIMENOrdering Facility: [facility] Address: [address] [place] [address] Result Comment: This test is for medical use only. This test was developed and its performance characteristics determined by [facility]'s [facility] [place] ([facility] It has not been cleared or approved by the FDA. [facility] is regulated under CLIA as qualified to perform high-complexity testing. This test is used for clinical purposes. It should not be regarded as investigational or for research. Performed By: #### C ANNCONFU ####[facility] LABIA [id number] [address] [place] CNOVon 01-04-2024 CNOV Office Visit (FPNRMO C) -------- SHAZIA CHOU ([id number]) 1990 F Date Time Provider Department 01/04/24 [...] She says that she is originally from [facility] however came up to here today [...] to establish with a new psychiatrist at [facility] in [place]. She also sees a counselor weekly. Current [...] in 1 (more content not included)... Normal [facility] SPECIMEN VALIDITY, URINEon 0 01-04-2024 CHROMATE,URINE <10 Normal <50 [facility] Comment on above: Order Comment: Speci men Type: URINE SPECIMENOrdering Facility: [facility] Address: [address] [place] [address] Performed By: #### L [id number] ####[facility] LABCLIA [id number] [place] [address] [place] CREATININE,URINE 33.7 mg/dL Normal 20.0-300.0 [facility] Comment on above: Order Comment: Speci men Type: URINE SPECIMENOrdering Facility: [facility] Address: [address] [place] [address] Performed By: #### L [id number] ####[facility] LABCLIA [id number] [place] [address] [place] NITRITES,URINE <50 Normal <500 [facility] Comment on above: Order Comment: Speci men Type: URINE SPECIMENOrdering Facility: [facility] Address: [address] [place] [address] Performed By: #### L [id number] ####[facility] LABCLIA [id number] [place] [address] [place] OXIDANTS,URINE 70 mg/L Normal <200 [facility] Comment on above: Order Comment: Speci men Type: URINE SPECIMENOrdering Facility: [facility] Address: [address] [place] [address] Performed By: #### L [id number] ####[facility] LABCLIA [id number] [place] [address] [place] pH (U) 5.6 [pH] Normal 4.5-8.0 [facility] Comment on above: Order Comment: Speci men Type: URINE SPECIMENOrdering Facility: [facility] Address: [address] [place] [address] Performed By: #### L [id number] ####[facility] LABCLIA [id number] [place] [address] [place] SPEC GRAVITY,UR 1.019 Normal 1.003-1.035 [facility] Comment on above: Order Comment: Speci men Type: URINE SPECIMENOrdering Facility: [facility] Address: [address] [place] [address] Performed By: #### L [id number] ####[facility]IA [id number] [place] [address] [place] SPECIMEN VALIDITY QUALITY Specimen quality results within acceptable limits Normal [facility] Comment on above: Order Comment: Speci men Type: URINE SPECIMENOrdering Facility: [facility] Address: [address] [place] [address] Performed By: #### L [id number] ####[facility] LABIA [id number] [place] [address] [place] TOXICOLOGY SCRN W/CONF,URINE on 01-04-2024 Amphetamines Confirm (U) [Mass/Vol] Negative Normal Negative [facility] Comment on above: Order Comment: Speci men Type: URINE SPECIMENOrdering Facility: [facility] Address: [address] [place] [address] Result Comment: Cuto ff threshold at 1000 ng/mL. Performed By: #### U TOXRF ####[facility] LABCLIA [id number] [place] [address] [place] BARBITURATES, URINE Negative Normal Negative [facility] Comment on above: Order Comment: Speci men Type: URINE SPECIMENOrdering Facility: [facility] Address: [address] [place] [address] Result Comment: Cuto ff threshold at 200 ng/mL. Performed By: #### U TOXRF ####[facility] LABIA [id number] [place] [address] [place] BENZODIAZEPINES, UR Negative Normal Negative [facility] Comment on above: Order Comment: Speci men Type: URINE SPECIMENOrdering Facility: [facility] Address: [address] [place] [address] Result Comment: Cuto ff threshold at 200 ng/mL. Performed By: #### U TOXRF ####[facility] LABIA [id number] [place] [address] [place] Cannabinoids Screen Ql (U) Sent for confirmation Abnormal Negative [facility] Comment on above: Order Comment: Speci men Type: URINE SPECIMENOrdering Facility: [facility] Address: [address] [place] [address] Result Comment: Cuto ff threshold at 50 ng/mL. Performed By: #### U TOXRF ####[facility]IA [id number] [place] [address] [place] Cocaine Ql (U) Negative Normal Negative [facility] Comment on above: Order Comment: Speci men Type: URINE SPECIMENOrdering Facility: [facility] Address: [address] [place] [address] Result Comment: Cuto ff threshold at 300 ng/mL. Performed By: #### U TOXRF ####[facility]IA [id number] [place] [address] [place] Ethanol (U) [Mass/Vol] <11 Normal <11 [facility] Comment on above: Order Comment: Speci men Type: URINE SPECIMENOrdering Facility: [facility] Address: [address] [place] [address] Performed By: #### U TOXRF ####[facility] LABCLIA [id number] [place] [address] [place] Opiates Screen Ql (U) Negative Normal Negative [facility] Comment on above: Order Comment: Speci men Type: URINE SPECIMENOrdering Facility: [facility] Address: [address] [place] [address] Result Comment: Cuto ff threshold at 300 ng/mL. Performed By: #### U TOXRF ####[facility]IA [id number] [place] [address] [place] oxyCODONE cutoff Screen (U) [Mass/Vol] Negative Normal Negative [facility] Comment on above: Order Comment: Speci men Type: URINE SPECIMENOrdering Facility: [facility] Address: [address] [place] [address] Result Comment: Cuto ff threshold at 100 ng/mL. Performed By: #### U TOXRF ####[facility]IA [id number] [place] [address] [place] Phencyclidine Ql (U) Negative Normal Negative [facility] Comment on above: Order Comment: Speci men Type: URINE SPECIMENOrdering Facility: [facility] Address: [address] [place] [address] Result Comment: Cuto ff threshold at 25 ng/mL. Performed By: #### U TOXRF ####[facility] [id number] [place] [address] [place] ECG 12 lead ECGon 12-31-2023 ECG 12 lead ECG [place] [address] Electrocardiograph Report Signed Patient: Shazia Chou MR#: [id number] : 1990 Acct:[id number] Age/Sex: 33 / F ADM Date: 12/31/23 Loc: ER Room: Type: [facility] ER Attending Dr: Ordering Provider: Kenny Javed [...] needs review Confirmed by JULES JANSEN DO ([id number]) on 01/01/2024 6:11:00 AM Referred By: Electronically Signed By:JULES JANSEN DO Transcribed By: MUS Signed By Jules Jansen DO 12/31 0611 Normal [facility] ED Noteon 2023 ED Note [id number] F Normal [facility] Activated partial thrombopla stin time (aPTT) in platelet poor plasma by coagulation aOrdered By: Marii Christiansen on 12-10-2023 aPTT Coag (PPP) [Time] 28.8 s 25.1-36.5 [facility] Comment on above: A hematocrit value g reater than 55% may lead to inaccurate results in coagulation testing. Patients having hematocrit values >55% require a special collection tube for coagulation studies. Please contact the laboratory at [phone] for redraw instructions. B-Type Natriuretic Peptideon 12-10-2023 Natriuretic peptide B (Bld) [Mass/Vol] 12.0 pg/mL Normal 5-100 [facility] Comment on above: Result Comment: PERF ORMED BY: [place] [address] PATHOLOGIST SLIP COVER OPERATOR JOHNIE BOSS M.D. Performed By: #### H EPATIC, BMP, LIPASE, CBC #### [address] Basic Metabolic Panelon 11-13 Anion gap [Moles/Vol] 9.8 mmol/L Normal 6.0-15.0 [facility] Comment on above: Performed By: #### H EPATIC, BMP, LIPASE, CBC #### [facility] [address] Calcium [Mass/Vol] 9.3 mg/dL Normal 8.6-10.3 [facility] Comment on above: Performed By: #### H EPATIC, BMP, LIPASE, CBC #### [facility] [address] [place] [address] [place] Chloride [Moles/Vol] 108 mmol/L High 98-107 [facility] Comment on above: Performed By: #### H EPATIC, BMP, LIPASE, CBC #### [facility] [address] CO2 [Moles/Vol] 26.2 mmol/L Normal 21.0-31.0 [facility] Comment on above: Performed By: #### H EPATIC, BMP, LIPASE, CBC #### [address] Creatinine [Mass/Vol] 0.63 mg/dL Normal 0.60-1.20 [facility] Comment on above: Performed By: #### H EPATIC, BMP, LIPASE, CBC #### [facility] [address] [place] [address] [place] Creatinine Clr Calc Pharmacy 144.76 Normal [facility] Comment on above: Performed By: #### H EPATIC, BMP, LIPASE, CBC #### [place] [address] [place] GFR/1.73 sq M.predicted MDRD (S/P/Bld) [Vol rate/Area] mL/min/{1.73_m2} Normal [facility] Comment on above: Performed By: #### H EPATIC, BMP, LIPASE, CBC #### [address] Glucose [Mass/Vol] 84 mg/dL Normal 70-100 [facility] Comment on above: Result Comment: [facility] Glucose Reference Range is dependent on time and content of last meal. Glucose of more than 200 mg/dL in a nonstressed, ambulatory subject supports the diagnosis of Diabetes Mellitus. ADA recommended reference range Performed By: #### H EPATIC, BMP, LIPASE, CBC #### [facility] [address] Potassium [Moles/Vol] 4.0 mmol/L Normal 3.5-5.1 [facility] Comment on above: Performed By: #### H EPATIC, BMP, LIPASE, CBC #### [facility] [address] Sodium [Moles/Vol] 140 mmol/L Normal 136-145 [facility] Comment on above: Performed By: #### H EPATIC, BMP, LIPASE, CBC #### [facility] [address] Urea nitrogen [Mass/Vol] 14 mg/dL Normal 7-25 [facility] Comment on above: Performed By: #### H EPATIC, BMP, LIPASE, CBC #### [facility] [address] Basophils Auto (Bld) [#/Vol] Ordered By: Marii Christiansen on 12-10-2023 Basophils (Bld) [#/Vol] 0.1 10*3/uL 0.0-0.2 [facility] Basophils/100 WBC Auto (Bld) Ordered By: Marii Christiansen on 12-10-2023 Basophils/100 WBC (Bld) 1.0 % . [facility] Calcium [Mass/volume] in Ser um or PlasmaOrdered By: Marii Christiansen on 12-10-2023 Calcium [Mass/Vol] 9.3 mg/dL 8.6-10.3 [facility] Carbon dioxide, total [Moles /volume] in Serum or PlasmaOrdered By: Marii Christiansen on 12-10-2023 CO2 [Moles/Vol] 26.2 mmol/L 21.0-31.0 [facility] Chloride [Moles/volume] in S tushar or PlasmaOrdered By: Marii Christiansen on 12-10-2023 Chloride [Moles/Vol] 108 mmol/L 98-107 [facility] Choriogonadotropin.beta subu nit [Units/volume] in Serum or PlasmaOrdered By: Marii Christiansen on 12-10-2023 HCG.beta subunit Qn Negative [facility] Complete Blood Count Auto Di ffon 12-10-2023 Basophils (Bld) [#/Vol] 0.1 10*3/uL Normal 0.0-0.2 [facility] Comment on above: Result Comment: PERF ORMED BY: [place] [address] PATHOLOGIST SLIP COVER OPERATOR JOHNIE BOSS M.D. Performed By: #### H EPATIC, BMP, LIPASE, CBC #### [address] Basophils/100 WBC (Bld) 1.0 % Normal . [facility] Comment on above: Performed By: #### H EPATIC, BMP, LIPASE, CBC #### [address] Eosinophils (Bld) [#/Vol] 0.1 10*3/uL Normal 0.0-0.45 [facility] Comment on above: Performed By: #### H EPATIC, BMP, LIPASE, CBC #### [address] Eosinophils/100 WBC (Bld) 1.7 % Normal . [facility] Comment on above: Performed By: #### H EPATIC, BMP, LIPASE, CBC #### [address] Erythrocyte distribution width (RBC) [Ratio] 18.2 % High 11.9-15.3 [facility] Comment on above: Performed By: #### H EPATIC, BMP, LIPASE, CBC #### [address] Hematocrit (Bld) [Volume fraction] 34.4 % Normal 34.0-46.4 [facility] Comment on above: Performed By: #### H EPATIC, BMP, LIPASE, CBC #### [address] Hemoglobin (Bld) [Mass/Vol] 11.2 g/dL Low 11.8-15.4 [facility] Comment on above: Performed By: #### H EPATIC, BMP, LIPASE, CBC #### [address] Lymphocytes (Bld) [#/Vol] 1.6 10*3/uL Normal 1.00-4.8 [facility] Comment on above: Performed By: #### H EPATIC, BMP, LIPASE, CBC #### [address] Lymphocytes/100 WBC (Bld) 21.9 % Normal . [facility] Comment on above: Performed By: #### H EPATIC, BMP, LIPASE, CBC #### [address] MCH (RBC) [Entitic mass] 28.8 pg Normal 24.7-34.3 [facility] Comment on above: Performed By: #### H EPATIC, BMP, LIPASE, CBC #### [address] MCV (RBC) [Entitic vol] 88.7 fL Normal 80-100 [facility] Comment on above: Performed By: #### H EPATIC, BMP, LIPASE, CBC #### [address] Mean Corpuscular HGB Conc 32.5 g/dL Normal 32.0-35.0 [facility] Comment on above: Performed By: #### H EPATIC, BMP, LIPASE, CBC #### [address] Monocytes (Bld) [#/Vol] 0.5 10*3/uL Normal 0.0-0.8 [facility] Comment on above: Performed By: #### H EPATIC, BMP, LIPASE, CBC #### [address] Monocytes/100 WBC (Bld) 16.94 % Normal 0.00-20.00 [facility] Comment on above: Performed By: #### H EPATIC, BMP, LIPASE, CBC #### [place] [address] [place] Monocytes/100 WBC (Bld) 6.4 % Normal . [facility] Comment on above: Performed By: #### H EPATIC, BMP, LIPASE, CBC #### [address] Neutrophils (Bld) [#/Vol] 4.9 10*3/uL Normal 1.8-7.7 [facility] Comment on above: Performed By: #### H EPATIC, BMP, LIPASE, CBC #### [address] Neutrophils/100 WBC (Bld) 69.0 % Normal . [facility] Comment on above: Performed By: #### H EPATIC, BMP, LIPASE, CBC #### [address] NRBC% 0.1 /100{WBC} Normal 0-0.5 [facility] Comment on above: Performed By: #### H EPATIC, BMP, LIPASE, CBC #### [address] Platelet mean volume (Bld) [Entitic vol] 9.2 fL Normal 6.3-10.7 [facility] Comment on above: Performed By: #### H EPATIC, BMP, LIPASE, CBC #### [place] [address] [place] Platelets (Bld) [#/Vol] 331 10*3/uL Normal 150-450 [facility] Comment on above: Performed By: #### H EPATIC, BMP, LIPASE, CBC #### [place] [address] [place] RBC (Bld) [#/Vol] 3.88 10*6/uL Normal 3.60-5.00 [facility] Comment on above: Performed By: #### H EPATIC, BMP, LIPASE, CBC #### [place] [address] [place] WBC (Bld) [#/Vol] 7.1 10*3/uL Normal 3.8-11.6 [facility] Comment on above: Performed By: #### H EPATIC, BMP, LIPASE, CBC #### [facility] [address] [place] [id number] [facility] Creatine Kinaseon 12-10-2023 CK [Catalytic activity/Vol] 90 U/L Normal 30 [facility] Comment on above: Performed By: #### H EPATIC, BMP, LIPASE, CBC #### [facility] [address] [place], [place] [id number] [facility] Creatine kinase [Enzymatic a ctivity/volume] in Serum or PlasmaOrdered By: Marii Christiansen on 12-10-2023 CK [Catalytic activity/Vol] 90 U/L 30- [facility] Creatinine [Mass/volume] in Serum or PlasmaOrdered By: Marii Christiansen on 12-10-2023 Creatinine [Mass/Vol] 0.63 mg/dL 0.60-1.20 [facility] ECG 12 lead ECGon 12-10-2023 ECG 12 lead ECG [facility] [place] [address] [place] [address] Electrocardiograph Report Signed Patient: Shazia Chou MR#: [id number] : 1990 Acct:[id number] Age/Sex: 32 / F ADM Date: 12/10/23 Loc: ER Room: Type: [facility] ER Attending Dr: Ordering Provider: Marii Christiansen [...] sinus rhythm Confirmed by Jaylon YANES DO ([id number]) on 12/10/2023 3:20:27 PM Referred By: Electronically Signed By:Jaylon YANES DO Transcribed By: MUS Signed By Jaylon Yanes DO 0 12/10/23 1520 Normal [facility] Eosinophils Auto (Bld) [#/Vo l]Ordered By: Marii Christiansen on 12-10-2023 Eosinophils (Bld) [#/Vol] 0.1 10*3/uL 0.0-0.45 [facility] Eosinophils/100 WBC Auto (Bl d)Ordered By: Marii Christiansen on 12-10-2023 Eosinophils/100 WBC (Bld) 1.7 % . [facility] Erythrocyte distribution wid th Auto (RBC) [Ratio]Ordered By: Marii Christiansen on 12-10-2023 Erythrocyte distribution width (RBC) [Ratio] 18.2 % 11.9-15.3 [facility] Free T4 (Free Thyroxine)on 0 12-10-2023 Free T4 [Mass/Vol] 0.82 ng/dL Normal 0.61-1.12 [facility] Comment on above: Performed By: #### H EPATIC, BMP, LIPASE, CBC #### [facility] [address] [place] [id number] [place] Glucose [Mass/volume] in Ser um or PlasmaOrdered By: Marii Christiansen on 12-10-2023 Glucose [Mass/Vol] 84 mg/dL 70-100 [facility] Comment on above: ADA recommended refe rence rangeRandom Glucose Reference Range is dependent on time and content of last meal. Glucose of more than 200 mg/dL in a nonstressed, ambulatory subject supports the diagnosis of Diabetes Mellitus. HCG,Qualitative Serumon 11-13 HCG,Qualitative Serum Negative Normal [facility] Comment on above: Result Comment: PERF ORMED BY: [facility] [address] [facility] [place] [address] PATHOLOGIST SLIP COVER OPERATOR JOHNIE BOSS M.D. Performed By: #### H EPATIC, BMP, LIPASE, CBC #### [facility] [address] [place] [id number] [place] Hematocrit Auto (Bld) [Volum e fraction]Ordered By: Marii Christiansen on 12-10-2023 Hematocrit (Bld) [Volume fraction] 34.4 % 34.0-46.4 [facility] Hemoglobin [Mass/volume] in BloodOrdered By: Marii Christiansen on 12-10-2023 Hemoglobin (Bld) [Mass/Vol] 11.2 g/dL 11.8-15.4 [facility] INR in Platelet poor plasma by Coagulation assayOrdered By: Marii Christiansen on 12-10-2023 INR Coag (PPP) [Relative time] 1.0 {INR} [facility] Comment on above: INR Therapeutic Rang e [...] RBC Auto (Bld) [#/Vol] 7.1 10*3/uL 3.8-11.6 [facility] Lymphocytes Auto (Bld) [#/Vo l]Ordered By: Marii Christiansen on 12-10-2023 Lymphocytes (Bld) [#/Vol] 1.6 10*3/uL 1.00-4.8 [facility] Lymphocytes/100 WBC Auto (Bl d)Ordered By: Marii Christiansen on 12-10-2023 Lymphocytes/100 WBC (Bld) 21.9 % . [facility] MCH Auto (RBC) [Entitic mass ]Ordered By: Marii Christiansen on 12-10-2023 MCH (RBC) [Entitic mass] 28.8 pg 24.7-34.3 [facility] MCHC Auto (RBC) [Mass/Vol]Or dered By: Marii Christiansen on 12-10-2023 MCHC (RBC) [Mass/Vol] 32.5 g/dL 32.0-35.0 [facility] MCV Auto (RBC) [Entitic vol] Ordered By: Marii Christiansen on 12-10-2023 MCV (RBC) [Entitic vol] 88.7 fL 80-100 [facility] Magnesiumon 12-10-2023 Magnesium [Mass/Vol] 1.9 mg/dL Normal 1.9-2.7 [facility] Comment on above: Performed By: #### H EPATIC, BMP, LIPASE, CBC #### [facility] [address] Magnesium [Mass/volume] in S tushar or PlasmaOrdered By: Marii Christiansen on 12-10-2023 Magnesium [Mass/Vol] 1.9 mg/dL 1.9-2.7 [facility] Monocyte distribution width [Entitic volume] in Blood by AutomatedOrdered By: Marii Christiansen on 12-10-2023 Monocyte distribution width Auto (Bld) [Entitic vol] 16.94 % 0.00-20.00 [facility] Monocytes Auto (Bld) [#/Vol] Ordered By: Marii Christiansen on 12-10-2023 Monocytes (Bld) [#/Vol] 0.5 10*3/uL 0.0-0.8 [facility] Monocytes/100 WBC Auto (Bld) Ordered By: Marii Christiansen on 12-10-2023 Monocytes/100 WBC (Bld) 6.4 % . [facility] Natriuretic peptide B [Mass/ Vol]Ordered By: Marii Christiansen on 12-10-2023 Natriuretic peptide B (Bld) [Mass/Vol] 12.0 pg/mL 5-100 [facility] Neutrophils Auto (Bld) [#/Vo l]Ordered By: Marii Christiansen on 12-10-2023 Neutrophils (Bld) [#/Vol] 4.9 10*3/uL 1.8-7.7 [facility] Neutrophils/100 WBC Auto (Bl d)Ordered By: Marii Christiansen on 12-10-2023 Neutrophils/100 WBC (Bld) 69.0 % . [facility] No Panel InformationOrdered By: Marii Christiansen on 12-10-2023 Estimated GFR (CKD-EPI) > 60.0 mL/Min [facility] Creatinine Clearance (Chem 144.76 [facility] Nucleated erythrocytes [Pres ence] in Blood by Automated countOrdered By: Marii Christiansen on 12-10-2023 Nucleated RBC Auto Ql (Bld) 0.1 /100{WBC} 0-0.5 [facility] Partial Thromboplastin Timeo n 12-10-2023 aPTT Coag (Bld) [Time] 28.8 s Normal 25.1-36.5 [facility] Comment on above: Result Comment: A he matocrit value greater than 55% may lead to inaccurate results in coagulation testing. Patients having hematocrit values >55% require a special collection tube for coagulation studies. Please contact the laboratory at [phone] for redraw instructions. PERFORMED BY: [place] [address] PATHOLOGIST SLIP COVER OPERATOR JOHNIE BOSS M.D. Performed By: #### H EPATIC, BMP, LIPASE, CBC #### [facility] [address] [place] [id number] [facility] Phosphate [Mass/volume] in S tushar or PlasmaOrdered By: Marii Christiansen on 12-10-2023 Phosphate [Mass/Vol] 3.7 mg/dL 2.5-4.5 [facility] Phosphoruson 12-10-2023 Phosphate [Mass/Vol] 3.7 mg/dL Normal 2.5-4.5 [facility] Comment on above: Performed By: #### H EPATIC, BMP, LIPASE, CBC #### [facility] [address] [place] [id number] [facility] Platelet mean volume Auto (B ld) [Entitic vol]Ordered By: Marii Christiansen on 12-10-2023 Platelet mean volume (Bld) [Entitic vol] 9.2 fL 6.3-10.7 [facility] Platelets Auto (Bld) [#/Vol] Ordered By: Marii Christiansen on 12-10-2023 Platelets (Bld) [#/Vol] 331 10*3/uL 150-450 [facility] Potassium [Moles/volume] in Serum or PlasmaOrdered By: Marii Christiansen on 12-10-2023 Potassium [Moles/Vol] 4.0 mmol/L 3.5-5.1 [facility] Prothrombin Time INRon 12-09 INR Coag (PPP) [Relative time] 1.0 {INR} Normal [facility] Comment on above: Result Comment: [...] #### H EPATIC, BMP, LIPASE, CBC #### [facility] [address] PT Coag (PPP) [Time] 11.3 s Normal 9.0-12.9 [facility] Comment on above: Result Comment: A he matocrit value greater than 55% may lead to inaccurate results in coagulation testing. Patients having hematocrit values >55% require a special collection tube for coagulation studies. Please contact the laboratory at [phone] for redraw instructions. Performed By: #### H EPATIC, BMP, LIPASE, CBC #### [facility] [address] [place] [id number] [facility] Prothrombin time (PT)Ordered By: Marii Christiansen on 12-10-2023 PT Coag (PPP) [Time] 11.3 s 9.0-12.9 [facility] Comment on above: A hematocrit value g reater than 55% may lead to inaccurate results in coagulation testing. Patients having hematocrit values >55% require a special collection tube for coagulation studies. Please contact the laboratory at [phone] for redraw instructions. RBC Auto (Bld) [#/Vol]Ordere d By: Marii Christiansen on 12-10-2023 RBC (Bld) [#/Vol] 3.88 10*6/uL 3.60-5.00 [facility] Serum or plasma anion gap de terminationOrdered By: Marii Christiansen on 12-10-2023 Anion gap [Moles/Vol] 9.8 mmol/L 6.0-15.0 [facility] Sodium [Moles/volume] in Ser um or PlasmaOrdered By: Marii Christiansen on 12-10-2023 Sodium [Moles/Vol] 140 mmol/L 136-145 [facility] Thyroid Stimulating Hormoneo n 12-10-2023 TSH Qn 0.61 m[IU]/L Normal 0.45-5.33 [facility] Comment on above: Performed By: #### H EPATIC, BMP, LIPASE, CBC #### [facility] [address] Thyrotropin [Units/volume] i n Serum or PlasmaOrdered By: Marii Christiansen on 12-10-2023 TSH Qn 0.61 m[IU]/L 0.45-5.33 [facility] Thyroxine (T4) free [Mass/vo lume] in Serum or PlasmaOrdered By: Marii Christiansen on 12-10-2023 Free T4 [Mass/Vol] 0.82 ng/dL 0.61-1.12 [facility] Troponin I High Sensitivityo n 12-10-2023 Troponin I High Sensitivity < 2.3 Normal 0.0-15.0 [facility] Comment on above: Result Comment: PERF ORMED BY: [address] [place] [address] PATHOLOGIST SLIP COVER OPERATOR JOHNIE BOSS M.D. Performed By: #### H EPATIC, BMP, LIPASE, CBC #### [facility] [address] Troponin I.cardiac [Mass/vol ume] in Serum or Plasma by Detection limit <= 0.01 ng/Ordered By: Marii Christiansen on 12-10-2023 Troponin I.cardiac DL <= 0.01 ng/mL [Mass/Vol] < 2.3 pg/mL 0.0-15.0 [facility] Urea nitrogen [Mass/volume] in Serum or PlasmaOrdered By: Marii Christiansen on 12-10-2023 Urea nitrogen [Mass/Vol] 14 mg/dL 725 [facility] WBC Auto (Bld) [#/Vol]Ordere d By: Marii Christiansen on 12-10-2023 WBC (Bld) [#/Vol] 7.1 10*3/uL 3.8-11.6 [facility] XR chest 2V*on 12-10-2023 XR chest 2V* [facility] [place] [address] [place] [address] XRay Report Signed Patient: Shazia Chou MR#: [id number] : 1990 Acct:[id number] Age/Sex: 32 / F ADM Date: 12/10/23 Loc: ER Room: Type: [facility] ER Attending Dr: Copies to: Marii Christiansen [...] Gaye Peraza M.D.12/10/2023 2:29 PM Dictation Location: [place] [address] Transcribed By: [facility] 12/10/23 1429 Dictated By: Gaye Peraza MD 12/10/23 1428 Signed By: 12/10/23 1429 Normal [facility] Consent for Treatmenton 11-13 Consent for Treatment [id number] F Normal [facility] [place] Mamm Diag w/CAD if perf a [...] very important to your health. The current [employer] and National Comprehensive Cancer [...] Category 1-Negative Recommendation: Normal interval follow-up Normal [facility] US Breast Unilateral Lt Comp leteon 12-09-2023 US Breast Unilateral Lt Complete Exam Date/Time: 12/09/2023 10:07 EDT Reason for Exam: N63.21 Report PLEASE REFER TO THE MAMMOGRAM REPORT. Ordering Provider: Jennie Ames FINAL REPORT Dictated: 12/09/2023 4:28 pm Mychal Cabezas M.D. Signed (Electronic Signature): 12/09/2023 4:28 pm Signed by: Mychal Cabezas M.D. Transcribed by: MARCO Technologist: KYLE Normal [facility] Physician Orderon 12-08-2023 Physician Order [id number] FF Normal [facility] CT ABDOMEN PELVIS W IV CONTR Melba [...] Jacob Dillon DO 10/25/[address] [facility] CBC panel Auto (Bld)on 08-31 Erythrocyte distribution width (RBC) [Ratio] 14.7 % Normal 11.5-15.0 [facility] Comment on above: Order Comment: Speci men Type: BLOOD SPECIMEN Ordering Facility: [facility] Address: [address] [place] [address] Performed By: #### 5 8410-2 #### [facility] CLIA [id number] [address] [place] [address] [place] Hematocrit (Bld) [Volume fraction] 36.9 % Normal 36.0-46.0 [facility] Comment on above: Order Comment: Speci men Type: BLOOD SPECIMEN Ordering Facility: [facility] Address: [address] [place] [address] Performed By: #### 5 8410-2 #### [facility] CLIA [id number] [address] [place] [address] [place] Hemoglobin (Bld) [Mass/Vol] 11.7 g/dL Normal 11.5-15.5 [facility] Comment on above: Order Comment: Speci men Type: BLOOD SPECIMEN Ordering Facility: [facility] Address: [address] [place] [address] Performed By: #### 5 8410-2 #### [facility] CLIA [id number] [address] [place] [address] [place] MCH (RBC) [Entitic mass] 29.8 pg Normal 26.0-34.0 [facility] Comment on above: Order Comment: Speci men Type: BLOOD SPECIMEN Ordering Facility: [facility] Address: [address] [place] [address] Performed By: #### 5 8410-2 #### [facility] CLIA [id number] [address] [place] [address] [place] MCHC (RBC) [Mass/Vol] 31.7 g/dL Normal 30.5-36.0 [facility] Comment on above: Order Comment: Speci men Type: BLOOD SPECIMEN Ordering Facility: [facility] Address: [address] [place] [address] Performed By: #### 5 8410-2 #### [facility] CLIA [id number] [address] [place] [address] [place] MCV (RBC) [Entitic vol] 93.9 fL Normal 80.0-100.0 [facility] Comment on above: Order Comment: Speci men Type: BLOOD SPECIMEN Ordering Facility: [facility] Address: [address] [place] [address] Performed By: #### 5 8410-2 #### [facility] CLIA [id number] [address] [place] [address] [place] Nucleated RBC (Bld) [#/Vol] 10*3/uL Normal <0.01 [facility] Comment on above: Order Comment: Speci men Type: BLOOD SPECIMEN Ordering Facility: [facility] Address: [address] [place] [address] Performed By: #### 5 8410-2 #### [facility] CLIA [id number] [address] [place] [address] [place] Platelet mean volume (Bld) [Entitic vol] 11.1 fL Normal 9.0-12.7 [facility] Comment on above: Order Comment: Speci men Type: BLOOD SPECIMEN Ordering Facility: [facility] Address: [address] [place] [address] Performed By: #### 5 8410-2 #### [facility] CLIA [id number] [address] [place] [address] [place] Platelets (Bld) [#/Vol] 297 10*3/uL Normal 150-400 [facility] Comment on above: Order Comment: Speci men Type: BLOOD SPECIMEN Ordering Facility: [facility] Address: [address] [place] [address] Performed By: #### 5 8410-2 #### [facility] CLIA [id number] [address] [place] [address] [place] RBC (Bld) [#/Vol] 3.93 10*6/uL Normal 3.90-5.20 [facility] Comment on above: Order Comment: Speci men Type: BLOOD SPECIMEN Ordering Facility: [facility] Address: [address] [place] [address] Performed By: #### 5 8410-2 #### [facility] CLIA [id number] [address] [place] [address] [place] WBC (Bld) [#/Vol] 6.82 10*3/uL Normal 3.70-11.00 [facility] Comment on above: Order Comment: Speci men Type: BLOOD SPECIMEN Ordering Facility: [facility] Address: [place] [address] Performed By: #### 5 8410-2 #### [facility] CLIA [id number] [address] [place] [id number] [place] CNOVon 08-31-2023 CNOV Office Visit ([id number] ) -------- SHAZIA CHOU ([id number]) 1990 F Date Time Provider Department 08/31/23 11:00 AM LEONELA GROSSMAN [id number] During your visit today, we recorded the following information about you: Temperature Pulse Blood pressure Weight 97.9 degrees 78/minute 123/88 89.4 kg Height 1.702 m [place], [place] 08/31/2023 11:14 AM Signed What is [...] Take 40 mg by mouth once daily. fnnzplxejrqr-dwr-zjxy-FA -vit K (BARIATRIC MULTIVITAMINS) 45 mg iron- [...] measure: Med (more content not included)... Normal [facility] Comprehensive metabolic 2000 panelon 08-31-2023 Albumin [Mass/Vol] 4.4 g/dL Normal 3.9-4.9 [facility] Comment on above: Order Comment: Philip birmingham Type: BLOOD SPECIMEN Ordering Facility: [facility] Address: [address] [place] [address] Performed By: #### L SONALI, 58015-3 #### [facility] CLIA [id number] [address] [place] [address] [place] ALP [Catalytic activity/Vol] 75 U/L Normal 34-123 [facility] Comment on above: Order Comment: Philip birmingham Type: BLOOD SPECIMEN Ordering Facility: [facility] Address: [address] [place] [address] Performed By: #### L SONALI, 94325-6 #### [facility] CLIA [id number] [address] [place] [address] [place] ALT [Catalytic activity/Vol] 16 U/L Normal 7-38 [facility] Comment on above: Order Comment: Speci men Type: BLOOD SPECIMEN Ordering Facility: [facility] Address: [address] [place] [address] Performed By: #### L IPNF, #### [facility] CLIA [id number] [address] [place] [address] [place] Anion gap [Moles/Vol] 11 mmol/L Normal 9-18 [facility] Comment on above: Order Comment: Speci men Type: BLOOD SPECIMEN [facility]ing [facility]: [facility] Address: [address] [place] [address] Performed By: #### L IPNF, #### [facility] CLIA [id number] [address] [place] [address] [place] AST [Catalytic activity/Vol] 21 U/L Normal 13-35 [facility] Comment on above: Order Comment: Speci men Type: BLOOD SPECIMEN [facility]ing [facility]: [facility] Address: [address] [place] [address] Performed By: #### L IPNF, #### [facility] CLIA [id number] [address] [place] [address] [place] Bilirubin [Mass/Vol] 0.2 mg/dL Normal 0.2-1.3 [facility] Comment on above: Order Comment: Speci men Type: BLOOD SPECIMEN Ordering [facility]: [facility] Address: [address] [place] [address] Performed By: #### L IPNF, #### [facility] CLIA [id number] [address] [place] [address] [place] Calcium [Mass/Vol] 9.7 mg/dL Normal 8.5-10.2 [facility] Comment on above: Order Comment: Speci men Type: BLOOD SPECIMEN Ordering [facility]: [facility] Address: [address] [place] [address] Performed By: #### L IPNF, #### [facility] CLIA [id number] [address] [place] [address] [place] Chloride [Moles/Vol] 106 mmol/L High 97-105 [facility] Comment on above: Order Comment: Speci men Type: BLOOD SPECIMEN Ordering Facility: [facility] Address: [address] [place] [address] Performed By: #### L IPNF, 56859-1 #### [facility] CLIA [id number] [address] [place] [address] [place] CO2 [Moles/Vol] 25 mmol/L Normal 22-30 [facility] Comment on above: Order Comment: Cecili men Type: BLOOD SPECIMEN Order[facility] Address: [address] [place] [address] Performed By: #### L IPNF, #### [facility] CLIA [id number] [address] [place] [address] [place] Creatinine [Mass/Vol] 0.55 mg/dL Low 0.58-0.96 [facility] Comment on above: Order Comment: Speci men Type: BLOOD SPECIMEN Ordering Facility: [facility] Address: [address] [place] [address] Performed By: #### L IPNF, #### [facility] CLIA [id number] [address] [place] [address] [place] Creatinine and Glomerular filtration rate.predicted panel (S/P/Bld) 124 mL/min/1.73m??? Normal >=60 [facility] Comment on above: Order Comment: Speci men Type: BLOOD SPECIMEN [facility]: [facility] Address: [address] [place] [address] Result Comment: Brenda mated Glomerular Filtration Rate [...] actual GFR. Performed By: #### L IPNF, 76985-8 #### [facility] CLIA [id number] [address] [place] [address] [place] Glucose [Mass/Vol] 93 mg/dL Normal 74-99 [facility] Comment on above: Order Comment: Philip birmingham Type: BLOOD SPECIMEN Order[facility]: [facility] Address: [address] [place] [address] Result Comment: The [place] Diabetes Association (ADA) provides guidance for cutoff [...] Standards of Medical Care in Diabetes 2016, [place] Diabetes Association. Diabetes Care. 2016.39(Suppl 1). Performed By: #### L IPNF, 16506-0 #### [facility] CLIA [id number] [address] [place] [address] [place] Potassium [Moles/Vol] 4.7 mmol/L Normal 3.7-5.1 [facility] Comment on above: Order Comment: Philip birmingham Type: BLOOD SPECIMEN Ordering [facility]: [facility] Address: [address] [place] [address] Performed By: #### L IPNF, 45610-8 #### [facility] CLIA [id number] [address] [place] [address] [place] Protein [Mass/Vol] 7.3 g/dL Normal 6.3-8.0 [facility] Comment on above: Order Comment: Philip birmingham Type: BLOOD SPECIMEN Ordering [facility]: [facility] Address: [address] [place] [address] Performed By: #### L IPNF, 12274-5 #### [facility] CLIA [id number] [address] [place] [address] [place] Sodium [Moles/Vol] 142 mmol/L Normal 136-144 [facility] Comment on above: Order Comment: Philip birmingham Type: BLOOD SPECIMEN Ordering Facility[facility] Address: [address] [place] [id number] Performed By: #### L IPNF, 12757-5 #### [facility] CLIA [id number] STATES OF [facility] Urea nitrogen [Mass/Vol] 9 mg/dL Normal 7-21 [facility] Comment on above: Order Comment: Philip birmingham Type: BLOOD SPECIMEN Ordering [facility] Address: [address] [place] [address] Performed By: #### L IPNF, 49482-7 #### [facility] CLIA [id number] [place] HISTORY PHYSICALon HISTORY PHYSICAL HNO ID: [id number] Author: Leonela Grossman MD Service: ? Author [...] Take 40 mg by mouth once daily. zjzzfqlarhhw-dzg-ynuu-FA -vit K (BARIATRIC MULTIVITAMINS) 45 mg iron- [...] or problem (more content not included)... Normal [facility] LIPID PANEL, NONFASTINGon Cholesterol [Mass/Vol] 154 mg/dL Normal <200 [facility] Comment on above: Order Comment: Philip birmingham Type: BLOOD SPECIMEN Order[facility] Address: [address] [place] [address] Result Comment: <200 mg/dL, Desirable 200-239 mg/dL, Borderline high >239 mg/dL, High Performed By: #### L SONALI, 60571-5 #### [facility] CLIA [id number] [address] [place] [address] [place] HDL CHOLESTEROL, NF 69 mg/dL Normal >39 [facility] Comment on above: Order Comment: Philip birmingham Type: BLOOD SPECIMEN Order[facility]: [facility] Address: [address] [place] [address] Result Comment: 40-5 9 mg/dL, Acceptable >59 mg/dL, High: Negative risk factor for coronary heart disease <40 mg/dL, Low: Positive risk factor for coronary heart disease Performed By: #### L SONALI, 46123-7 #### [facility] CLIA [id number] OF [facility] LDL CHOLESTEROL, NF 66 mg/dL Normal <100 [facility] Comment on above: Order Comment: Philip birmingham Type: BLOOD SPECIMEN Ordering [facility] Address: [address] [place] [address] Result Comment: <100 mg/dL, Optimal 100-129 mg/dL, Near optimal/above optimal 130-159 mg/dL, Borderline high 160-189 mg/dL, High >189 mg/dL, Very high Secondary prevention optimal LDL Cholesterol levels are recommended to be < 70 mg/dL Performed By: #### L IPNF, 78315-1 #### [facility] CLIA [id number] [address] [place] [address] [place] LDL/HDL RATIO, NF 0.96 mg/dL Normal <2.54 [facility] Comment on above: Order Comment: Philip birmingham Type: BLOOD SPECIMEN Ordering [facility]: [facility] Address: [address] [place] [address] Result Comment: Refjacqueline kasper: 1. National Cholesterol Education Program ATP III Guideline At-A-Glance Quick Desk Reference: National Heart, Lung, and Blood [place]. National Institutes of Health. 2001: NIH Publication No. 01-3305. 2. An International Atherosclerosis Society position paper: global recommendations for the management of dyslipidemia: executive summary, Atherosclerosis. 2014: 232(2):410-413. Performed By: #### L IPNF, 95901-4 #### [facility] CLIA [id number] [address] [place] [address] [place] NON HDL CHOL, NF 85 mg/dL Normal <130 [facility] Comment on above: Order Comment: Philip valencia Type: BLOOD SPECIMEN Order[facility] Address: [address] [place] [address] Result Comment: <130 mg/dL, Optimal 130-159 mg/dL, Near optimal/above optimal 160-189 mg/dL, Borderline high 190-219 mg/dL, High >219 mg/dL, Very high Secondary prevention optimal non HDL Cholesterol levels are recommended to be <100 mg/dL Performed By: #### L IPNF, 78949-8 #### [facility] CLIA [id number] [address] [place] [address] [place] T CHOL/HDL RATIO NF 2.23 mg/dL Normal <5.10 [facility] Comment on above: Order Comment: Speci men Type: BLOOD SPECIMEN Order[facility] Address: [address] [place] [address] Performed By: #### L IPNF, 68559-3 #### [facility] CLIA [id number] [address] [place] [address] [place] TRIGLYCERIDES, NF 96 mg/dL Normal <150 [facility] Comment on above: Order Comment: Speci men Type: BLOOD SPECIMEN Ordering [facility]: [facility] Address: [address] [place] [address] Result Comment: <150 mg/dL, Normal 150-199 mg/dL, Borderline high 200-499 mg/dL, High >499 mg/dL, Very high Performed By: #### L IPNF, #### [facility] CLIA [id number] [address] [place] [address] [place] VLDL CHOLESTEROL, NF 19 mg/dL Normal <30 [facility] Comment on above: Order Comment: Speci men Type: BLOOD SPECIMEN Ordering [facility]: [facility] Address: [address] [place] [address] Performed By: #### L IPNF, 10357-4 #### [facility] CLIA [id number] [address] [place] [address] [place] PHOSPHATIDYLETHANOL (PETH)on 08-31-2023 EER PETH See Note Normal [facility] Comment on above: Order Comment: Speci men Type: BLOOD SPECIMEN Ordering Facility: [facility] Address: [address] [place] [address] Result Comment: Auth orized individuals can access the [facility] Enhanced Report using the following link: [email or web address] Performed By: #### P ETH #### [facility] CLIA [id number] [address] [place] [address] PETH 16:0/18.2 (PLPETH) 244 ng/mL Normal [facility] Comment on above: Order Comment: Speci men Type: BLOOD SPECIMEN Order[facility] Address: [address] [place] [address] Result Comment: Refe rence ranges are not well established. Performed By: #### P ETH #### [facility] CLIA [id number] [address] [place] [address] PETH 16:0/18:1 (POPETH) 169 ng/mL Normal [facility] Comment on above: Order Comment: Speci men Type: BLOOD SPECIMEN Ordering [facility] Address: [address] [place] [address] Result Comment: PEth 16:0/18:1 (POPEth) Less than 10 ng/mL............Not detected Less than 20 ng/mL............Abstinence or light alcohol consumption 20 - 200 ng/mL................Moderate alcohol consumption Greater than 200 ng/mL........Heavy alcohol consumption or chronic alcohol use (Reference: Sophie Gonzalez and Crystal Zabala 2018 J. Forensic Sci) Performed By: #### P ETH #### [facility] CLIA [id number] [address] [place] [address] PETH INTERPRETATION See Note Normal [facility] Comment on above: Order Comment: Speci men Type: BLOOD SPECIMEN Ordering [facility]: [facility] Address: [address] [place] [address] Result Comment: Phos phatidylethanol (PEth) is a [...] developed and its performance characteristics determined by [facility]. It has not been cleared or approved by the U.S. Food and Drug Administration. This test was performed in a CLIA-certified laboratory and is intended for clinical purposes. Performed By: [facility] [address] [place] [address] Judge: Osmar Salcido MD, PhD CLIA Number: [id number] Performed By: #### P ETH #### [employer] [facility] CLIA [id number] [address] [place] [address] Ernesto 08-21-2023 CNPN Telephone ([id number]) -------- SHAZIA CHOU ([id number]) 1990 F Date Time Provider Department 08/21/23 LEONELA GROSSMAN [id number] During your visit today, we recorded the following information about you: Sindy Ruvalcaba RN 08/21/2023 10:19 AM Signed [facility] to [facility] MRI from 08/20 [...] 40 mg by mouth once daily. - ifvwerauicgi-ndh-ytja-FA -vit K (BARIATRIC MULTIVITAMINS) 45 mg iron- [...] Status:Closed by SINDY RUVALCABA on 08/21/23 Normal [facility] MRI ABDOMEN W WO CONTRAST MR CPon [...] Troy Bond MD 08/20/[address] [facility] Vitamin Aon 08-16-2023 Interpretation Normal Normal [facility] Comment on above: Result Comment: (NOT E) This test was developed and its performance characteristics determined by [facility]. It has not been cleared or approved by the US Food and Drug Administration. This test was performed in a CLIA certified laboratory and is intended for clinical purposes. Performed By: [facility] [address] [place] [address] Judge: Osmar Salcido MD, PhD CLIA Number: [id number] Performed By: #### P THNCA, FEBC, FERI, GLYHGB, VD25 #### [facility] [address] [place] [address] Oncology Technician: Harpal Adair MD #### AGNES OLIVO, AZN #### [facility] [address] [place] [address] Oncology Technician: Patricio Zuñiga MD #### CP, MG, CDP #### [facility] [address] [place] [address] [address] [place], [place] [id number] Oncology Technician: Hilton Armenta MD Retinol (Vitamin A) 0.60 mg/L Normal 0.30-1.20 [facility] Comment on above: Performed By: #### P THNCA, FEBC, FERI, GLYHGB, VD25 #### [facility] [place], [place] [address] Oncology Technician: Harpal Adair MD #### ARIAN OLIVOTB1, AZN #### [facility] [address] [place] [address] Oncology Technician: Patricio Zuñiga MD #### ANGEL, MG, CDP #### [address] [place] [address] Oncology Technician: Hilton Armenta MD Retinyl Palmitate <0.02 Normal 0.00-0.10 [facility] Comment on above: Performed By: #### P DENNISA, FECHRIS, FERI, GLYHGB, VD25 #### [address] [address] Oncology Technician: Harpal Adair MD #### ARIAN OLIVOTB1, AZN #### [facility] [address] [place] [address] Oncology Technician: Patricio Zuñiga MD #### CP, MG, CDP #### [facility] [address] [place] [address] [place] [address] Oncology Technician: Hilton Armenta MD Alanine aminotransferase [En zymatic activity/volume] in Serum or PlasmaOrdered By: Yoli Norris on 08-15-2023 ALT [Catalytic activity/Vol] 18 U/L [facility] Albumin [Mass/volume] in Ser um or Plasma by Bromocresol green (BCG) dye binding methoOrdered By: Yoli Norris on 12-02-2023 Albumin BCG dye [Mass/Vol] 4.6 g/dL 3.5-5.7 [facility] Alkaline phosphatase [Enzyma tic activity/volume] in Serum or PlasmaOrdered By: Yoli Norris on 08-15-2023 ALP [Catalytic activity/Vol] 77 U/L 34-104 [facility] Aspartate aminotransferase [ Enzymatic activity/volume] in Serum or PlasmaOrdered By: Yoli Norris on 08-15-2023 AST [Catalytic activity/Vol] 18 U/L 13-39 [facility] Basic Metabolic Panelon 12-0 Anion gap [Moles/Vol] 12.7 mmol/L Normal 6.0-15.0 [facility] Comment on above: Performed By: #### H EPATIC, BMP, LIPASE, CBC #### [facility] [address] Calcium [Mass/Vol] 9.8 mg/dL Normal 8.6-10.3 [facility] Comment on above: Performed By: #### H EPATIC, BMP, LIPASE, CBC #### [facility] [address] [place] [address] [place] Chloride [Moles/Vol] 109 mmol/L High 98-107 [facility] Comment on above: Performed By: #### H EPATIC, BMP, LIPASE, CBC #### [place] [address] [place] CO2 [Moles/Vol] 21.8 mmol/L Normal 21.0-31.0 [facility] Comment on above: Performed By: #### H EPATIC, BMP, LIPASE, CBC #### [facility] [address] [place] [address] [place] Creatinine [Mass/Vol] 0.76 mg/dL Normal 0.60-1.20 [facility] Comment on above: Performed By: #### H EPATIC, BMP, LIPASE, CBC #### [facility] [address] [place] [id number] [place] Creatinine Clr Calc Pharmacy 117.62 Normal [facility] Comment on above: Performed By: #### H EPATIC, BMP, LIPASE, CBC #### [facility] [address] [place] [address] GFR/1.73 sq M.predicted MDRD (S/P/Bld) [Vol rate/Area] mL/min/{1.73_m2} Normal [facility] Comment on above: Performed By: #### H EPATIC, BMP, LIPASE, CBC #### [address] Glucose [Mass/Vol] 85 mg/dL Normal 70-100 [facility] Comment on above: Result Comment: [facility] Glucose Reference Range is dependent on time and content of last meal. Glucose of more than 200 mg/dL in a nonstressed, ambulatory subject supports the diagnosis of Diabetes Mellitus. ADA recommended reference range Performed By: #### H EPATIC, BMP, LIPASE, CBC #### [address] Potassium [Moles/Vol] 3.5 mmol/L Normal 3.5-5.1 [facility] Comment on above: Performed By: #### H EPATIC, BMP, LIPASE, CBC #### [address] Sodium [Moles/Vol] 140 mmol/L Normal 136-145 [facility] Comment on above: Performed By: #### H EPATIC, BMP, LIPASE, CBC #### [address] Urea nitrogen [Mass/Vol] 11 mg/dL Normal 7-25 [facility] Comment on above: Performed By: #### H EPATIC, BMP, LIPASE, CBC #### [place] [address] [place] Basophils Auto (Bld) [#/Vol] Ordered By: Yoli Norris on 08-15-2023 Basophils (Bld) [#/Vol] 0.1 10*3/uL 0.0-0.2 [facility] Basophils/100 WBC Auto (Bld) Ordered By: Yoli Norris on 08-15-2023 Basophils/100 WBC (Bld) 0.5 % . [facility] Bilirubin Test strip Ql (U)O rdered By: Yoli Norris on 08-15-2023 Bilirubin Ql (U) Negative Negative [facility] Bilirubin.direct [Mass/volum e] in Serum or PlasmaOrdered By: Yoli Norris on 08-15-2023 Bilirubin.direct [Mass/Vol] 0.00 mg/dL 0.03-0.18 [facility] Comment on above: If the DBIL is less than 0.1, IBIL is not able to becalculated. Bilirubin.total [Mass/volume ] in Serum or PlasmaOrdered By: Yoli Norris on 08-15-2023 Bilirubin [Mass/Vol] 0.3 mg/dL 0.3-1.0 [facility] CT abdomen pelvis w conon CT abdomen pelvis w con [facility] [place] [address] [place] [address] CT Scan Report Signed Patient: Shazia Chou MR#: [id number] : 1990 Acct:[id number] Age/Sex: 32 / F ADM Date: 08/15/23 Loc: ER Room: Type: [facility] ER Attending Dr: Copies to: Yoli Norris [...] Gaye Peraza M.D.08/15/2023 1:03 PM Dictation Location: [place] [address] Transcribed By: [facility] 08/15/23 1303 Dictated By: Gaye Peraza MD 08/15/23 1256 Signed By: 08/15/23 1303 Normal [facility] Calcium [Mass/volume] in Ser um or PlasmaOrdered By: Yoli Norris on 08-15-2023 Calcium [Mass/Vol] 9.8 mg/dL 8.6-10.3 [facility] Carbon dioxide, total [Moles /volume] in Serum or PlasmaOrdered By: Yoli Norris on 08-15-2023 CO2 [Moles/Vol] 21.8 mmol/L 21.0-31.0 [facility] Chloride [Moles/volume] in S tushar or PlasmaOrdered By: Yoli Norris on 08-15-2023 Chloride [Moles/Vol] 109 mmol/L 98-107 [facility] Color Auto (U)Ordered By: Maribel Norris on 08-15-2023 Color (U) Yellow Yellow [facility] Complete Blood Count Auto Di ffon 08-15-2023 Basophils (Bld) [#/Vol] 0.1 10*3/uL Normal 0.0-0.2 [facility] Comment on above: Result Comment: PERF ORMED BY: [facility] [address] [place] [address] PATHOLOGIST SLIP COVER OPERATOR JOHNIE BOSS M.D. Performed By: #### H EPATIC, BMP, LIPASE, CBC #### [address] Basophils/100 WBC (Bld) 0.5 % Normal . [facility] Comment on above: Performed By: #### H EPATIC, BMP, LIPASE, CBC #### [address] Eosinophils (Bld) [#/Vol] 0.2 10*3/uL Normal 0.0-0.45 [facility] Comment on above: Performed By: #### H EPATIC, BMP, LIPASE, CBC #### [address] Eosinophils/100 WBC (Bld) 2.1 % Normal . [facility] Comment on above: Performed By: #### H EPATIC, BMP, LIPASE, CBC #### [address] Erythrocyte distribution width (RBC) [Ratio] 15.1 % Normal 11.9-15.3 [facility] Comment on above: Performed By: #### H EPATIC, BMP, LIPASE, CBC #### [address] Hematocrit (Bld) [Volume fraction] 37.2 % Normal 34.0-46.4 [facility] Comment on above: Performed By: #### H EPATIC, BMP, LIPASE, CBC #### [address] Hemoglobin (Bld) [Mass/Vol] 12.2 g/dL Normal 11.8-15.4 [facility] Comment on above: Performed By: #### H EPATIC, BMP, LIPASE, CBC #### [address] Lymphocytes (Bld) [#/Vol] 2.0 10*3/uL Normal 1.00-4.8 [facility] Comment on above: Performed By: #### H EPATIC, BMP, LIPASE, CBC #### [address] Lymphocytes/100 WBC (Bld) 17.8 % Normal . [facility] Comment on above: Performed By: #### H EPATIC, BMP, LIPASE, CBC #### [address] MCH (RBC) [Entitic mass] 30.2 pg Normal 24.7-34.3 [facility] Comment on above: Performed By: #### H EPATIC, BMP, LIPASE, CBC #### [address] MCV (RBC) [Entitic vol] 92.4 fL Normal 80-100 [facility] Comment on above: Performed By: #### H EPATIC, BMP, LIPASE, CBC #### [address] Mean Corpuscular HGB Conc 32.7 g/dL Normal 32.0-35.0 [facility] Comment on above: Performed By: #### H EPATIC, BMP, LIPASE, CBC #### [address] Monocytes (Bld) [#/Vol] 0.6 10*3/uL Normal 0.0-0.8 [facility] Comment on above: Performed By: #### H EPATIC, BMP, LIPASE, CBC #### [address] Monocytes/100 WBC (Bld) 15.46 % Normal 0.00-20.00 [facility] Comment on above: Performed By: #### H EPATIC, BMP, LIPASE, CBC #### [address] Monocytes/100 WBC (Bld) 5.0 % Normal . [facility] Comment on above: Performed By: #### H EPATIC, BMP, LIPASE, CBC #### [address] Neutrophils (Bld) [#/Vol] 8.4 10*3/uL High 1.8-7.7 [facility] Comment on above: Performed By: #### H EPATIC, BMP, LIPASE, CBC #### [address] Neutrophils/100 WBC (Bld) 74.6 % Normal . [facility] Physician Group Comment on above: Performed By: #### H EPATIC, BMP, LIPASE, CBC #### [address] NRBC% 0.0 /100{WBC} Normal 0-0.5 [facility] Comment on above: Performed By: #### H EPATIC, BMP, LIPASE, CBC #### [address] Platelet mean volume (Bld) [Entitic vol] 9.2 fL Normal 6.3-10.7 [facility] Comment on above: Performed By: #### H EPATIC, BMP, LIPASE, CBC #### [address] Platelets (Bld) [#/Vol] 321 10*3/uL Normal 150-450 [facility] Comment on above: Performed By: #### H EPATIC, BMP, LIPASE, CBC #### [address] RBC (Bld) [#/Vol] 4.03 10*6/uL Normal 3.60-5.00 [facility] Comment on above: Performed By: #### H EPATIC, BMP, LIPASE, CBC #### [address] WBC (Bld) [#/Vol] 11.3 10*3/uL Normal 3.8-11.6 [facility] Comment on above: Performed By: #### H EPATIC, BMP, LIPASE, CBC #### [address] Creatinine [Mass/volume] in Serum or PlasmaOrdered By: Yoli Norris on 08-15-2023 Creatinine [Mass/Vol] 0.76 mg/dL 0.60-1.20 [facility] Eosinophils Auto (Bld) [#/Vo l]Ordered By: Yoli Norris on 08-15-2023 Eosinophils (Bld) [#/Vol] 0.2 10*3/uL 0.0-0.45 [facility] Eosinophils/100 WBC Auto (Bl d)Ordered By: Yoli Norris on 08-15-2023 Eosinophils/100 WBC (Bld) 2.1 % . [facility] Erythrocyte distribution wid th Auto (RBC) [Ratio]Ordered By: Yoli Norris on 08-15-2023 Erythrocyte distribution width (RBC) [Ratio] 15.1 % 11.9-15.3 [facility] Globulin Calc (S) [Mass/Vol] Ordered By: Yoli Norris on 08-15-2023 Globulin (S) [Mass/Vol] 3.2 g/dL [facility] Glucose [Mass/volume] in Ser um or PlasmaOrdered By: Yoli Norris on 08-15-2023 Glucose [Mass/Vol] 85 mg/dL 70-100 [facility] Comment on above: ADA recommended refe rence rangeRandom Glucose Reference Range is dependent on time and content of last meal. Glucose of more than 200 mg/dL in a nonstressed, ambulatory subject supports the diagnosis of Diabetes Mellitus. HCG ( test) IAkarina d Ql (U)Ordered By: Yoli Norris on 08-15-2023 HCG ( test) Ql (U) Negative [facility] HCG,Urineon 08-15-2023 Beta HCG ( test) Ql (U) Negative Normal [facility] Comment on above: Order Comment: Name Collection Type:: Clean-Voided Midstream Result Comment: PERF ORMED BY: [place] [address] PATHOLOGIST SLIP COVER OPERATOR JOHNIE BOSS M.D. Performed By: #### U A, [facility] #### [address] Hematocrit Auto (Bld) [Volum e fraction]Ordered By: Yoli Norris on 08-15-2023 Hematocrit (Bld) [Volume fraction] 37.2 % 34.0-46.4 [facility] Hemoglobin [Mass/volume] in BloodOrdered By: Yoli Norris on 08-15-2023 Hemoglobin (Bld) [Mass/Vol] 12.2 g/dL 11.8-15.4 [facility] Hepatic Panelon 08-15-2023 Albumin [Mass/Vol] 4.6 g/dL Normal 3.5-5.7 [facility] Comment on above: Performed By: #### H EPATIC, BMP, LIPASE, CBC #### [facility] [address] Albumin/Globulin [Mass ratio] 1.4 {ratio} Normal [facility] Comment on above: Performed By: #### H EPATIC, BMP, LIPASE, CBC #### [facility] [address] ALP [Catalytic activity/Vol] 77 U/L Normal 34-104 [facility] Comment on above: Performed By: #### H EPATIC, BMP, LIPASE, CBC #### [facility] [address] [place] [address] ALT [Catalytic activity/Vol] 18 U/L Normal 7-52 [facility] Comment on above: Performed By: #### H EPATIC, BMP, LIPASE, CBC #### [facility] [address] [place] [address] AST [Catalytic activity/Vol] 18 U/L Normal 13-39 [facility] Comment on above: Performed By: #### H EPATIC, BMP, LIPASE, CBC #### [facility] [address] [place] [address] Bilirubin [Mass/Vol] 0.3 mg/dL Normal 0.3-1.0 [facility] Comment on above: Performed By: #### H EPATIC, BMP, LIPASE, CBC #### [facility] [address] [place] [address] Bilirubin,Indirect 0.3 mg/dL Normal [facility] Comment on above: Performed By: #### H EPATIC, BMP, LIPASE, CBC #### [facility] [address] [place] [address] Bilirubin.indirect [Mass/Vol] 0.00 mg/dL Low 0.03-0.18 [facility] Comment on above: Result Comment: If t he DBIL is less than 0.1, IBIL is not able to be calculated. Performed By: #### H EPATIC, BMP, LIPASE, CBC #### [address] Globulin (S) [Mass/Vol] 3.2 g/dL Normal [facility] Comment on above: Performed By: #### H EPATIC, BMP, LIPASE, CBC #### [address] Protein [Mass/Vol] 7.8 g/dL Normal 6.4-8.9 [facility] Comment on above: Performed By: #### H EPATIC, BMP, LIPASE, CBC #### [address] Ketones Auto test strip (U) [Mass/Vol]Ordered By: Yoli Norris on 08-15-2023 Ketones (U) [Mass/Vol] Negative Negative [facility] Leukocytes [#/volume] correc caitlin for nucleated erythrocytes in Blood by Automated counOrdered By: Yoli Norris on 08-15-2023 WBC corrected for nucl RBC Auto (Bld) [#/Vol] 11.3 10*3/uL 3.8-11.6 [facility] Lipaseon 08-15-2023 Lipase [Catalytic activity/Vol] 32.0 U/L Normal 11.0-82.0 [facility] Comment on above: Result Comment: PERF ORMED BY: [place] [address] PATHOLOGIST SLIP COVER OPERATOR JOHNIE BOSS M.D. Performed By: #### H EPATIC, BMP, LIPASE, CBC #### [address] Lipase [Enzymatic activity/v olume] in Serum or PlasmaOrdered By: Yoli Norris on 08-15-2023 Lipase [Catalytic activity/Vol] 32.0 U/L 11.0-82.0 [facility] Lymphocytes Auto (Bld) [#/Vo l]Ordered By: Yoli Norris on 08-15-2023 Lymphocytes (Bld) [#/Vol] 2.0 10*3/uL 1.00-4.8 [facility] Lymphocytes/100 WBC Auto (Bl d)Ordered By: Yoli Norris on 08-15-2023 Lymphocytes/100 WBC (Bld) 17.8 % . [facility] MCH Auto (RBC) [Entitic mass ]Ordered By: Yoli Norris on 08-15-2023 MCH (RBC) [Entitic mass] 30.2 pg 24.7-34.3 [facility] MCHC Auto (RBC) [Mass/Vol]Or dered By: Yoli Norris on 08-15-2023 MCHC (RBC) [Mass/Vol] 32.7 g/dL 32.0-35.0 [facility] MCV Auto (RBC) [Entitic vol] Ordered By: Yoli Norris on 08-15-2023 MCV (RBC) [Entitic vol] 92.4 fL 80-100 [facility] Monocyte distribution width [Entitic volume] in Blood by AutomatedOrdered By: Yoli Norris on 08-15-2023 Monocyte distribution width Auto (Bld) [Entitic vol] 15.46 % 0.00-20.00 [facility] Monocytes Auto (Bld) [#/Vol] Ordered By: Yoli Norris on 08-15-2023 Monocytes (Bld) [#/Vol] 0.6 10*3/uL 0.0-0.8 [facility] Monocytes/100 WBC Auto (Bld) Ordered By: Yoli Norris on 08-15-2023 Monocytes/100 WBC (Bld) 5.0 % . [facility] Neutrophils Auto (Bld) [#/Vo l]Ordered By: Yoli Norris on 08-15-2023 Neutrophils (Bld) [#/Vol] 8.4 10*3/uL 1.8-7.7 [facility] Neutrophils/100 WBC Auto (Bl d)Ordered By: Yoli Norris on 08-15-2023 Neutrophils/100 WBC (Bld) 74.6 % . [facility] Nitrite Test strip Ql (U)Ord ered By: Yoli Norris on 08-15-2023 Nitrite Ql (U) Negative Negative [facility] No Panel InformationOrdered By: Yoli Norris on 08-15-2023 Estimated GFR (CKD-EPI) > 60.0 mL/Min [facility] Pharmacy Creatinine Clearance (Chem 117.62 [facility] Nucleated erythrocytes [Pres ence] in Blood by Automated countOrdered By: Yoli Norris on 08-15-2023 Nucleated RBC Auto Ql (Bld) 0.0 /100{WBC} 0-0.5 [facility] Platelet mean volume Auto (B ld) [Entitic vol]Ordered By: Yoli Norris on 08-15-2023 Platelet mean volume (Bld) [Entitic vol] 9.2 fL 6.3-10.7 [facility] Platelets Auto (Bld) [#/Vol] Ordered By: Yoli Norris on 08-15-2023 Platelets (Bld) [#/Vol] 321 10*3/uL 150-450 [facility] Potassium [Moles/volume] in Serum or PlasmaOrdered By: Yoli Norris on 08-15-2023 Potassium [Moles/Vol] 3.5 mmol/L 3.5-5.1 [facility] Protein Auto test strip (U) [Mass/Vol]Ordered By: Yoli Norris on 08-15-2023 Protein (U) [Mass/Vol] Negative Negative [facility] Protein [Mass/volume] in Ser um or PlasmaOrdered By: Yoli Norris on 08-15-2023 Protein [Mass/Vol] 7.8 g/dL 6.4-8.9 [facility] RBC Auto (Bld) [#/Vol]Ordere d By: Yoli Norris on 08-15-2023 RBC (Bld) [#/Vol] 4.03 10*6/uL 3.60-5.00 [facility] Serum or plasma albumin/glob ulin mass ratioOrdered By: Yoli Norris on 08-15-2023 Albumin/Globulin [Mass ratio] 1.4 {ratio} [facility] Serum or plasma anion gap de terminationOrdered By: Yoli Norris on 08-15-2023 Anion gap [Moles/Vol] 12.7 mmol/L 6.0-15.0 [facility] Serum or plasma non-glucuron idated bilirubin measurement (mass/volume)Ordered By: Yoli Norris on 08-15-2023 Bilirubin.indirect [Mass/Vol] 0.3 mg/dL [facility] Sodium [Moles/volume] in Ser um or PlasmaOrdered By: Yoli Norris on 08-15-2023 Sodium [Moles/Vol] 140 mmol/L 136-145 [facility] Specific gravity Auto test s trip (U) [Rel density]Ordered By: Yoli Norris on 08-15-2023 Specific gravity (U) [Rel density] 1.007 1.001-1.030 [facility] Urea nitrogen [Mass/volume] in Serum or PlasmaOrdered By: Yoli Norris on 08-15-2023 Urea nitrogen [Mass/Vol] 11 mg/dL 7-25 [facility] Urinalysison 08-15-2023 Appearance (U) Clear Normal Clear [facility] Comment on above: Order Comment: Name Collection Type:: Clean-Voided Midstream Performed By: #### U A, UHCG #### [facility] [address] [place] [address] [place] Bilirubin,Urine Negative Normal Negative [facility] Comment on above: Order Comment: Name Collection Type:: Clean-Voided Midstream Performed By: #### U A, UHCG #### [facility] [address] [place] [address] [place] Color (U) Yellow Normal Yellow [facility] Comment on above: Order Comment: Name Collection Type:: Clean-Voided Midstream Performed By: #### U A, UHCG #### [facility] [address] [place] [id number] [place] Glucose Ql (U) Normal Normal Normal [facility] Comment on above: Order Comment: Name Collection Type:: Clean-Voided Midstream Performed By: #### U A, UHCG #### [facility] [address] [place] [id number] [place] Ketones Ql (U) Negative Normal Negative [facility] Comment on above: Order Comment: Name Collection Type:: Clean-Voided Midstream Performed By: #### U A, UHCG #### [facility] [address] [place] [address] Leukocyte esterase Test strip Ql (U) Negative Normal Negative [facility] Comment on above: Order Comment: Name Collection Type:: Clean-Voided Midstream Performed By: #### U A, UHCG #### [address] Nitrite,Urine Negative Normal Negative [facility] Comment on above: Order Comment: Name Collection Type:: Clean-Voided Midstream Performed By: #### U A, UHCG #### [address] Occult Blood,Urine Negative Normal Negative [facility] Comment on above: Order Comment: Name Collection Type:: Clean-Voided Midstream Performed By: #### U A, UHCG #### [address] pH (U) 8.0 [pH] Normal 5.0-9.0 [facility] Comment on above: Order Comment: Name Collection Type:: Clean-Voided Midstream Performed By: #### U A, UHCG #### [place] [address] [place] Protein,Urine Negative Normal Negative [facility] Comment on above: Order Comment: Name Collection Type:: Clean-Voided Midstream Performed By: #### U A, UHCG #### [address] [place],Urine 1.007 Normal 1.001-1.030 [facility] Comment on above: Order Comment: Name Collection Type:: Clean-Voided Midstream Performed By: #### U A, UHCG #### [place] [address] [place] Urobilinogen,Urine Normal Normal Normal [facility] Comment on above: Order Comment: Name Collection Type:: Clean-Voided Midstream Performed By: #### U A, UHCG #### [place] [address] [place] Urine clarity by refractomet ry automatedOrdered By: Yoli Norris on 08-15-2023 Clarity Refractometry automated (U) Clear Clear [facility] Urine glucose measurement by automated test strip (mass/volume)Ordered By: Yoli Norris on 08-15-2023 Glucose Auto test strip (U) [Mass/Vol] Normal mg/dL Normal [facility] Urine hemoglobin detection b y automated test stripOrdered By: Yoli Norris on 08-15-2023 Hemoglobin Auto test strip Ql (U) Negative Negative [facility] Urine leukocyte esterase det ection by automated test stripOrdered By: Yoli Norris on 08-15-2023 Leukocyte esterase Auto test strip Ql (U) Negative Negative [facility] Urobilinogen Auto test strip (U) [Mass/Vol]Ordered By: Yoli Norris on 08-15-2023 Urobilinogen (U) [Mass/Vol] Normal mg/dL Normal [facility] Vitamin B1on 08-15-2023 Vitamin B1 145 nmol/L Normal 70-180 [facility] Comment on above: Result Comment: (NOT [...] developed and its performance characteristics determined by [facility]. It has not been cleared or approved by the [place] Food and Drug Administration. This test was performed in a CLIA certified laboratory and is intended for clinical purposes. Performed By: [facility] [address] [place] [address] Judge: Osmar Salcido MD, PhD CLIA Number: [id number] Performed By: #### P THNCA, FEBC, FERI, GLYHGB, VD25 #### [facility] [place] [id number] [place] [id number] Oncology Technician: Harpal Adair MD #### AGNES OLIVO, AZN #### [facility] [address] [place] [address] Oncology Technician: Patricio Zuñiga MD #### ANGEL MG, CDP #### [facility] [address] [place] [address] Oncology Technician: Hilton Armenta MD WBC Auto (Bld) [#/Vol]Ordere d By: Yoli Norris on 08-15-2023 WBC (Bld) [#/Vol] 11.3 10*3/uL 3.8-11.6 [facility] pH Auto test strip (U)Ordere d By: Yoli Norris on 08-15-2023 pH (U) 8.0 [pH] 5.0-9.0 [facility] Zinc, Serumon 08-14-2023 Zinc, Serum 95.3 ug/dL Normal 60.0-120.0 [facility] Comment on above: Result Comment: (NOT [...] developed and its performance characteristics determined by [facility]. It has not been cleared or approved by the US Food and Drug Administration. This test was performed in a CLIA certified laboratory and is intended for clinical purposes. Performed By: [facility] [address] [place] [address] Judge: Osmar Salcido MD, PhD CLIA Number: [id number] Performed By: #### P THNCA, FEBC, FERI, GLYHGB, VD25 #### [facility] [address] [address] Oncology Technician: Harpal Aadir MD #### PALLAVI, ARIANTB1, AZN #### [facility] [address] [place] [address] Oncology Technician: Patricio Zuñiga MD #### CP, MG, CDP #### [facility] [address] [place], [place] [id number] Oncology Technician: Hilton Armenta MD B12/Folate Panelon Folic Acid >20.0 Normal >4.8 [facility] Comment on above: Performed By: #### P THNCA, FEBC, FERI, GLYHGB, VD25 #### [place] [address] [place] [address] Oncology Technician: Harpal Adair MD #### AGNES OLIVO, AZN #### [facility] [address] [place], [place] [id number] Oncology Technician: Patricio Zuñiga MD #### MG ANGEL, CDP #### [address] [place], [place] [id number] Oncology Technician: Hilton Armenta MD Cobalamin (Vitamin B12) [Mass/Vol] 632 pg/mL Normal 232-1245 [facility] Comment on above: Performed By: #### P DENNISA, FEBC, FERI, GLYHGB, VD25 #### [address] [address] Oncology Technician: Harpal Adair MD #### AGNES OLIVO, AZN #### [facility] [address] [place] [address] Oncology Technician: Patricio Zuñiga MD #### ANGLE, MG, CDP #### [address] [place], [place] [phone] Oncology Technician: Hilton Armenta MD CBC with Diffon 08-12-2023 Abs. Basophil 0.06 k/uL Normal 0.00-0.20 [facility] Comment on above: Performed By: #### P THNCA, FEBC, FERI, GLYHGB, VD25 #### [facility] [address] [place] [address] Oncology Technician: Harpal Adair MD #### ARIAN OLIVOTB1, AZN #### [facility] [address] [place] [address] Oncology Technician: Patricio Zuñiga MD #### CP, MG, CDP #### [facility] [address] [place] [address] [place] [place], [place] [id number] Oncology Technician: Hilton Armenta MD Abs.Imm.Granulocyte 0.03 k/uL Normal 0.00-0.30 [facility] Comment on above: Performed By: #### P BAILEY, FECHRIS, FERI, GLYHGB, VD25 #### [address] [address] Oncology Technician: Harpal Adair MD #### ARIAN OLIOVTB1, AZN #### [facility] [address] [place] [address] Oncology Technician: Patricio Zuñiga MD #### ANGEL, MG, CDP #### [address] [place] [address] Oncology Technician: Hilton Armenta MD Abs.Neutrophil (Seg) 6.33 k/uL Normal 1.50-8.10 [facility] Comment on above: Performed By: #### P DENNISA, FEBC, FERI, GLYHGB, VD25 #### [address] [address] Oncology Technician: Harpal Adair MD #### ARIAN OLIVOTB1, AZN #### [facility] [address] [place] [address] Oncology Technician: Patricio Zuñiga MD #### CP, MG, CDP #### [address] [place] [address] Oncology Technician: Hilton Armenta MD Basophils/100 WBC (Bld) 1 % Normal 0-2 [facility] Comment on above: Performed By: #### P THNCA, FEBC, FERI, GLYHGB, VD25 #### [facility] [place] [address] Oncology Technician: Harpal Adair MD #### FARHADS, ARIANTB1, AZN #### [facility] [address] [place] [address] Oncology Technician: Patricio Zuñiga MD #### CP, MG, CDP #### [facility] [address] [place], [place] [id number] Oncology Technician: Hilton Armenta MD Eosinophils (Bld) [#/Vol] 0.43 10*3/uL Normal 0.00-0.44 [facility] Comment on above: Performed By: #### P THNCA, FEBC, FERI, GLYHGB, VD25 #### [facility] [address] [place] [address] Oncology Technician: Harpal Adair MD #### ARIAN OLIVOTB1, AZN #### [facility] [address] [place], [place] [id number] Oncology Technician: Patricio Zuñiga MD #### ANGEL, MG, CDP #### [address] [place], [place] [address] Oncology Technician: Hilton Armenta MD Eosinophils/100 WBC (Bld) 5 % High 1-4 [facility] Comment on above: Performed By: #### P THNCA, FEBC, FERI, GLYHGB, VD25 #### [address] [address] Oncology Technician: Harpal Adair MD #### ARIAN OLIVOTB1, AZN #### [facility] [address] [place] [address] Oncology Technician: Patricio Zuñiga MD #### CP, MG, CDP #### [facility] [address] [place], [place] [id number] Oncology Technician: Hilton Armenta MD Erythrocyte distribution width (RBC) [Ratio] 14.9 % High 11.8-14.4 [facility] Comment on above: Performed By: #### P THNCA, FEBC, FERI, GLYHGB, VD25 #### [address] [phone] Oncology Technician: Harpal Adair MD #### AGNES OLIVO, AZN #### [facility] [address] [place], [place] [id number] Oncology Technician: Patricio Zuñiga MD #### MG ANGEL, CDP #### [address] [place] [address] Oncology Technician: Hilton Armenta MD Hematocrit (Bld) [Volume fraction] 38.0 % Normal 36.3-47.1 [facility] Comment on above: Performed By: #### P DENNISA, FEBC, FERI, GLYHGB, VD25 #### [address] [address] Oncology Technician: Harpal Adair MD #### AGNES OLIVO, AZN #### [facility] [address] [place] [address] Oncology Technician: Patricio Zuñiga MD #### MG ANGEL, CDP #### [address] [place] [address] Oncology Technician: Hilton Armenta MD Hemoglobin (Bld) [Mass/Vol] 12.2 g/dL Normal 11.9-15.1 [facility] Comment on above: Performed By: #### P THNCA, FEBC, FERI, GLYHGB, VD25 #### [address] [id number] Oncology Technician: Harpal Adair MD #### AGNES OLIVO, AZN #### [facility] [address] [place], [place] [id number] Oncology Technician: Patricio Zuñiga MD #### MG ANGEL, CDP #### [facility] [address] [place], [place] [address] Oncology Technician: Hilton Armenta MD Immature granulocytes/100 WBC (Bld) 0 % Normal 0 [facility] Comment on above: Performed By: #### P THNCA, FEBC, FERI, GLYHGB, VD25 #### [address] [id number] Oncology Technician: Harpal Adair MD #### ARIAN OLIVOTB1, AZN #### [facility] [address] [place], [place] [id number] Oncology Technician: Patricio Zuñiga MD #### MG ANGEL, CDP #### [address] [place] [address] Oncology Technician: Hilton Armenta MD Lymphocytes (Bld) [#/Vol] 1.90 10*3/uL Normal 1.10-3.70 [facility] Comment on above: Performed By: #### P THNCA, FEBC, FERI, GLYHGB, VD25 #### [address] [address] Oncology Technician: Harpal Adair MD #### TYREE OLIVO1, AZN #### [facility] [address] [place], [place] [id number] Oncology Technician: Patricio Zuñiga MD #### ANGEL MG, CDP #### [facility] [address] [place], [place] [id number] Oncology Technician: Hilton Armenta MD Lymphocytes/100 WBC (Bld) 20 % Low 24-43 [facility] Comment on above: Performed By: #### P THNCA, FEBC, FERI, GLYHGB, VD25 #### [place] [address] [place], [place] [address] Oncology Technician: Harpal Adair MD #### AGNES OLIVO, AZN #### [facility] [address] [place], [place] [id number] Oncology Technician: Patricio Zuñiga MD #### ANGEL, MG, CDP #### [address] [place], [place] [id number] Oncology Technician: Hilton Armenta MD MCH (RBC) [Entitic mass] 29.9 pg Normal 25.2-33.5 [facility] Comment on above: Performed By: #### P THNCA, FEBC, FERI, GLYHGB, VD25 #### [address] [address] Oncology Technician: Harpal Adair MD #### AGNES OLIVO, AZN #### [facility] [address] [place] [address] Oncology Technician: Patricio Zuñiga MD #### MG ANGEL, CDP #### [address] [place] [address] Oncology Technician: Hilton Armenta MD MCHC (RBC) [Mass/Vol] 32.1 g/dL Normal 28.4-34.8 [facility] Comment on above: Performed By: #### P THNCA, FEBC, FERI, GLYHGB, VD25 #### [address] [id number] Oncology Technician: Harpal Adair MD #### AGNES OLIVO, AZN #### [facility] [address] [place], [place] [id number] Oncology Technician: Patricio Zuñiga MD #### ANGEL, MG, CDP #### [place] [address] [place], [place] [id number] Oncology Technician: Hilton Armenta MD MCV (RBC) [Entitic vol] 93.1 fL Normal 82.6-102.9 [facility] Comment on above: Performed By: #### P THNCA, FEBC, FERI, GLYHGB, VD25 #### [address] [id number] Oncology Technician: Harpal Adair MD #### AGNES OLIVO, AZN #### [facility] [address] [place], [place] [id number] Oncology Technician: Patricio Zuñiga MD #### MG ANGEL, CDP #### [address] [place] [id number] Oncology Technician: Hilton Armenta MD Monocytes (Bld) [#/Vol] 0.70 10*3/uL Normal 0.10-1.20 [facility] Comment on above: Performed By: #### P THNCA, FEBC, FERI, GLYHGB, VD25 #### [address] [address] Oncology Technician: Harpal Adair MD #### AGNES OLIVO, AZN #### [facility] [address], [place] [phone] Oncology Technician: Patricio Zuñiga MD #### ANGEL, MG, CDP #### [address] [place] [id number] Oncology Technician: Hilton Armenta MD Monocytes/100 WBC (Bld) 7 % Normal 3-12 [facility] Comment on above: Performed By: #### P THNCA, FEBC, FERI, GLYHGB, VD25 #### [address] [id number] Oncology Technician: Harpal Adair MD #### AGNES OLIVO, AZN #### [facility] [address] [place] [address] Oncology Technician: Patricio Zuñiga MD #### ANGEL MG, CDP #### [address] [place], [place] [phone] Oncology Technician: Hilton Armenta MD Neutrophil (Seg) 67 % High 36-[address] [facility] Comment on above: Performed By: #### P THNCA, FEBC, FERI, GLYHGB, VD25 #### [address] [id number] Oncology Technician: Harpal Adair MD #### AGNES OLIVO, AZN #### [facility] [address], [place] [id number] Oncology Technician: Patricio Zuñiga MD #### MG ANGEL, CDP #### [address] [place], [place] [id number] Oncology Technician: Hilton Armenta MD NRBC Automated 0.0 per 100 WBC Normal 0.0 [facility] Comment on above: Performed By: #### P THNCA, FEBC, FERI, GLYHGB, VD25 #### [address] [address] Oncology Technician: Harpal Adair MD #### AGNES OLIVO, AZN #### [facility] [address], [place] [id number] Oncology Technician: Patricio Zuñiga MD #### ANGEL MG, CDP #### [address] [place] [address] Oncology Technician: Hilton Armenta MD Platelet mean volume (Bld) [Entitic vol] 10.6 fL Normal 8.1-13.5 [facility] Comment on above: Performed By: #### P THNCA, FEBC, FERI, GLYHGB, VD25 #### [address] [place] [address] Oncology Technician: Harpal Adair MD #### AGNES OLIVO, AZN #### [facility] [address] [place] [address] Oncology Technician: Patricio Zuñiga MD #### ANGEL MG, CDP #### [address] [place], [place] [phone] Oncology Technician: Hilton Armenta MD Platelets (Bld) [#/Vol] 355 10*3/uL Normal 138-453 [facility] Comment on above: Performed By: #### P GINCA, FEBC, FERI, GLYHGB, VD25 #### [address] [address] Oncology Technician: Harpal Adair MD #### AGNES OLIVO, AZN #### [facility] [address] [place] [address] Oncology Technician: Patricio Zuñiga MD #### MG ANGEL, CDP #### [address] [place] [address] Oncology Technician: Hilton Armenta MD RBC (Bld) [#/Vol] 4.08 10*6/uL Normal 3.95-5.11 [facility] Comment on above: Performed By: #### P THNCA, FEBC, FERI, GLYHGB, VD25 #### [address] [address] Oncology Technician: Harpal Adair MD #### AGNES OLIVO, AZN #### [facility] [address] [place] [address] Oncology Technician: Patricio Zuñiga MD #### ANGEL MG, CDP #### [address] [place], [place] 2245383 Oncology Technician: Hilton Armenta MD WBC (Bld) [#/Vol] 9.5 10*3/uL Normal 3.5-11.3 [facility] Comment on above: Performed By: #### P THNCA, FEBC, FERI, GLYHGB, VD25 #### [address] [id number] Oncology Technician: Harpal Adair MD #### AGNES OLIVO, AZN #### [facility] [address], [place] [id number] Oncology Technician: Patricio Zuñiga MD #### ANGEL, MG, CDP #### [address] [place] [address] Oncology Technician: Hilton Armenta MD Comp Metabolic Profon 2022 Albumin [Mass/Vol] 4.5 g/dL Normal 3.5-5.2 [facility] Comment on above: Performed By: #### P THNCA, FEBC, FERI, GLYHGB, VD25 #### [address] [address] Oncology Technician: Harpal Adair MD #### AGNES OLIVO, AZN #### [facility] [address] [place] [address] Oncology Technician: Patricio Zuñiga MD #### ANGEL, MG, CDP #### [facility] [address] [place] [address] [place] [place] [id number] Oncology Technician: Hilton Armenta MD Albumin/Glob Ratio 1.6 Normal 1.0-2.5 [facility] Comment on above: Performed By: #### P THNCA, FEBC, FERI, GLYHGB, VD25 #### [facility] [address] [place] [address] [phone] Oncology Technician: Harpal Adair MD #### AGNES OLIVO, AZN #### [facility] [address] [place] [address] Oncology Technician: Patricio Zuñiga MD #### MG ANGEL, CDP #### [facility] [address] [place], [place] [id number] Oncology Technician: Hilton Armenta MD Alkaline Phos 85 U/L Normal 35-104 [facility] Comment on above: Performed By: #### P THNCA, FEBC, FERI, GLYHGB, VD25 #### [address] [phone] Oncology Technician: Harpal Adair MD #### AGNES OLIVO, AZN #### [facility] [address], [place] [id number] Oncology Technician: Patricio Zuñiga MD #### MG ANGEL, CDP #### [facility] [address] [place] [address] [place] [address] Oncology Technician: Hilton Armenta MD ALT [Catalytic activity/Vol] 21 U/L Normal 5-33 [facility] Comment on above: Performed By: #### P DENNISA, FEBC, FERI, GLYHGB, VD25 #### [address] [phone] Oncology Technician: Harpal Adair MD #### AGNES OLIVO, AZN #### [facility] [address] [place] [address] Oncology Technician: Patricio Zuñiga MD #### ANGEL MG, CDP #### [facility] [address] [place] [address] Oncology Technician: Hilton Armenta MD Anion gap [Moles/Vol] 11 mmol/L Normal 9-17 [facility] Comment on above: Performed By: #### P THNCA, FEBC, FERI, GLYHGB, VD25 #### [facility] [place] [address] Oncology Technician: Harpal Adair MD #### AGNES OLIVO, AZN #### [facility] [address] [place] [address] Oncology Technician: Patricio Zuñiga MD #### MG ANGEL, CDP #### [address] [place], [place] [phone] Oncology Technician: Hilton Armenta MD AST [Catalytic activity/Vol] 22 U/L Normal <32 [facility] Comment on above: Performed By: #### ALFONSO COSTA, FERI, GLYHGB, VD25 #### [address] [address] Oncology Technician: Harpal Adair MD #### AGNES OLIVO, AZN #### [facility] [address] [place] [address] [id number] Oncology Technician: Patricio Zuñiga MD #### MG ANGEL, CDP #### [address] [place] [address] Oncology Technician: Hilton Armenta MD Bilirubin [Mass/Vol] 0.2 mg/dL Low 0.3-1.2 [facility] Comment on above: Performed By: #### P BAILEY, FECHRIS, FERI, GLYHGB, VD25 #### [address] [address] Oncology Technician: Harpal Adair MD #### AGNES OLIVO, AZN #### [facility] [address], [place] [id number] Oncology Technician: Patricio Zuñiga MD #### ANGEL, MG, CDP #### [address] [place] [address] Oncology Technician: Hilton Armenta MD BUN/CRE Ratio 20 Normal 9-20 [facility] Comment on above: Performed By: #### P DENNISA, FEBC, FERI, GLYHGB, VD25 #### [address] [address] Oncology Technician: Harpal Adair MD #### AGNES OLIVO, AZN #### [facility] [address], [place] [id number] Oncology Technician: Patricio Zuñiga MD #### CP, MG, CDP #### [facility] [address] [place] [address] Oncology Technician: Hilton Armenta MD Calcium [Mass/Vol] 9.9 mg/dL Normal 8.6-10.4 [facility] Comment on above: Performed By: #### P BAILEY, ALFONSO, FERI, GLYHGB, VD25 #### [address] [address] Oncology Technician: Harpal Adair MD #### AGNES OLIVO, AZN #### [facility] [address] [place] [address] Oncology Technician: Patricio Zuñiga MD #### ANGEL, MG, CDP #### [facility] [address] [place] [address] [place] [address] Oncology Technician: Hilton Armenta MD Chloride [Moles/Vol] 107 mmol/L Normal 98-107 [facility] Comment on above: Performed By: #### P DENNISA, FECHRIS, FERI, GLYHGB, VD25 #### [address] [address] Oncology Technician: Harpal Adair MD #### AGNES OLIVO, AZN #### [facility] [address], [place] [id number] Oncology Technician: Patricio Zuñiga MD #### CP, MG, CDP #### [facility] [address] [place], [place] [phone] Oncology Technician: Hilton Armenta MD CO2 [Moles/Vol] 23 mmol/L Normal 20-31 [facility] Comment on above: Performed By: #### P THNCA, FEBC, FERI, GLYHGB, VD25 #### [facility] [address] [place], [place] [phone] Oncology Technician: Harpal Adair MD #### ARIAN OLIVOTB1, AZN #### [facility] [address], [place] [id number] Oncology Technician: Patricio Zuñiga MD #### ANGEL, MG, CDP #### [facility] [address] [place] [address] [place] [address] Oncology Technician: Hilton Armenta MD Creatinine [Mass/Vol] 0.6 mg/dL Normal 0.5-0.9 [facility] Comment on above: Performed By: #### P DENNISA, FECHRIS, FERI, GLYHGB, VD25 #### [address] [place] [address] Oncology Technician: Harpal Adair MD #### ARIAN OLIVOTB1, AZN #### [facility] [address] [place] [phone] Oncology Technician: Patricio Zuñiga MD #### CP, MG, CDP #### [facility] [address] [place] [address] [place] [address] Oncology Technician: Hilton Armenta MD GFR/1.73 sq M.predicted among non-blacks MDRD (S/P/Bld) [Vol rate/Area] mL/min/{1.73_m2} Normal >60 [facility] Comment on above: Result Comment: These [...] P THNCA, FEBC, FERI, GLYHGB, VD25 #### [address] [address] Oncology Technician: Harpal Adair MD #### AGNES OLIVO, AZN #### [facility] [address] [place] [address] Oncology Technician: Patricio Zuñiga MD #### MG ANGEL, CDP #### [address] [place] [address] Oncology Technician: Hilton Armenta MD Glucose [Mass/Vol] 89 mg/dL Normal 70-99 [facility] Comment on above: Performed By: #### P DENNISA, FEBC, FERI, GLYHGB, VD25 #### [address] [address] Oncology Technician: Harpal Adair MD #### AGNES OLIVO, AZN #### [facility] [address] [place] [address] [phone] Oncology Technician: Patricio Zuñiga MD #### MG ANGEL, CDP #### [address] [place] [address] Oncology Technician: Hilton Armenta MD Potassium [Moles/Vol] 4.3 mmol/L Normal 3.7-5.3 [facility] Comment on above: Performed By: #### P THNCA, FEBC, FERI, GLYHGB, VD25 #### [address] [address] Oncology Technician: Harpal Adair MD #### AGNES OLIVO, AZN #### [facility] [address] [place] [address] Oncology Technician: Patricio Zuñiga MD #### ANGEL, MG, CDP #### [address] [place] [address] Oncology Technician: Hilton Armenta MD Protein [Mass/Vol] 7.4 g/dL Normal 6.4-8.3 [facility] Comment on above: Performed By: #### P THNCA, FEBC, FERI, GLYHGB, VD25 #### [address] [id number] Oncology Technician: Harpal Adair MD #### AGNES OLIVO, AZN #### [facility] [address], [place] [id number] Oncology Technician: Patricio Zuñiga MD #### MG ANGEL, CDP #### [address] [place] [address] Oncology Technician: Hilton Armenta MD Sodium [Moles/Vol] 141 mmol/L Normal 135-144 [facility] Comment on above: Performed By: #### P THNCA, FEBC, FERI, GLYHGB, VD25 #### [address] [id number] Oncology Technician: Harpal Adair MD #### AGNES OLIVO, AZN #### [facility] [address] [place] [address] Oncology Technician: Patricio Zuñiga MD #### ANGEL, MG, CDP #### [address] [place] [address] Oncology Technician: Hilton Armenta MD Urea nitrogen [Mass/Vol] 12 mg/dL Normal 6-20 [facility] Comment on above: Performed By: #### P THNCA, FEBC, FERI, GLYHGB, VD25 #### [facility] [place] [address] Oncology Technician: Harpal Adair MD #### AGNES OLIVO, AZN #### [facility] [address], [place] [phone] Oncology Technician: Patricio Zuñiga MD #### ANGEL, MG, CDP #### [address] [place], [place] [phone] Oncology Technician: Hilton Armenta MD Ferritinon 08-12-2023 Ferritin [Mass/Vol] 12 ng/mL Low 13-150 [facility] Comment on above: Performed By: #### P DENNISA, FEBC, FERI, GLYHGB, VD25 #### [facility] [address] [place] [address] Oncology Technician: Harpal Adair MD #### AGNES OLIVO, AZN #### [facility] [address], [place] [phone] Oncology Technician: Patricio Zuñiga MD #### ANGEL MG, CDP #### [address] [place] [address] Oncology Technician: Hilton Armenta MD Hemoglobin A1Con 08-12-2023 Glucose [Mass/Vol] 114 mg/dL Normal [facility] Comment on above: Result Comment: The ADA and AACC recommend providing the estimated average glucose result to permit better patient understanding of their HBA1c result. Performed By: #### P THNCA, FEBC, FERI, GLYHGB, VD25 #### [facility] [address] [place] [address] Oncology Technician: Harpal Adair MD #### ARIAN OLIVOTB1, AZN #### [facility] [address] [place] [address] Oncology Technician: Patricio Zuñiga MD #### CP, MG, CDP #### [facility] [address] [place], [place] [phone] Oncology Technician: Hilton Armenta MD HbA1c (Bld) [Mass fraction] 5.6 % Normal 4.0-6.0 [facility] Comment on above: Performed By: #### P THNCA, FEBC, FERI, GLYHGB, VD25 #### [address] [address] Oncology Technician: Harpal Adair MD #### AGNES OLIVO, AZN #### [facility] [address] [place] [address] Oncology Technician: Patricio Zuñiga MD #### ANGEL, MG, CDP #### [facility] [address] [place] [address] [place], [place] 1947683 Oncology Technician: Hilton Armenta MD Iron Binding Cap.on 08-12-20 23 % Fe Saturation 16 % Low 20-55 [facility] Comment on above: Performed By: #### P THNCA, FEBC, FERI, GLYHGB, VD25 #### [address] [address] Oncology Technician: Harpal Adair MD #### AGNES OLIVO, AZN #### [facility] [address] [place] [address] Oncology Technician: Patricio Zuñiga MD #### CP, MG, CDP #### [facility] [address] [place] [address] [place], [place] [phone] Oncology Technician: Hilton Armenta MD Iron [Mass/Vol] 57 ug/dL Normal 37-145 [facility] Comment on above: Performed By: #### P THNCA, FEBC, FERI, GLYHGB, VD25 #### [address] [address] Oncology Technician: Harpal Adair MD #### AGNES OLIVO, AZN #### [facility] [address] [place] [address] Oncology Technician: Patricio Zuñiga MD #### ANGEL, MG, CDP #### [facility] [address] [place], [place] [phone] Oncology Technician: Hilton Armenta MD Total Fe Binding Cap 354 ug/dL Normal 250-450 [facility] Comment on above: Performed By: #### P THNCA, FEBC, FERI, GLYHGB, VD25 #### [address] [id number] Oncology Technician: Harpal Adair MD #### AGNES OLIVO, AZN #### [facility] [address] [place], [place] [id number] Oncology Technician: Patricio Zuñiga MD #### ANGEL MG, CDP #### [facility] [address] [place] [address] Oncology Technician: Hilton Armenta MD Unbound Fe Bind Cap 297 ug/dL Normal 112-347 [facility] Comment on above: Performed By: #### P THNCA, FEBC, FERI, GLYHGB, VD25 #### [address] [id number] Oncology Technician: Harpal Adair MD #### AGNES OLIVO, AZN #### [facility] [address] [place] [address] Oncology Technician: Patricio Zuñiga MD #### ANGEL, MG, CDP #### [facility] [address] [place] [address] Oncology Technician: Hilton Armenta MD Lipid Profileon 08-12-2023 Cholesterol [Mass/Vol] 153 mg/dL Normal <200 [facility] Comment on above: Result Comment: Cholesterol Guidelines: <200 Desirable 200-240 Borderline >240 Undesirable Performed By: #### L IPR #### [facility] [address] [place] [address] Oncology Technician: Harpal Adair MD Cholesterol in HDL [Mass/Vol] 68 mg/dL Normal >40 [facility] Comment on above: Result Comment: HDL Guidelines: <40 Undesirable 40-59 Borderline >59 Desirable Performed By: #### L IPR #### [facility] [address] [place] [address] Oncology Technician: Harpal Adair MD Cholesterol in LDL [Mass/Vol] 77 mg/dL Normal 0-130 [facility] Comment on above: Result Comment: LDL Guidelines: <100 Desirable 100-129 Near to/above Desirable 130-159 Borderline >159 Undesirable Direct (measured) LDL and calculated LDL are not interchangeable tests. Performed By: #### L IPR #### [facility] [address] [place] [address] Oncology Technician: Harpal Adair MD Cholesterol.total/Cho lesterol in HDL [Mass ratio] 2.3 {ratio} Normal <5 [facility] Comment on above: Performed By: #### L IPR #### [facility] [address] [place] [address] Oncology Technician: Harpal Adair MD Triglyceride [Mass/Vol] 39 mg/dL Normal <150 [facility] Comment on above: Result Comment: Triglyceride Guidelines: <150 Desirable 150-199 Borderline 200-499 High >499 Very high Based on AHA Guidelines for fasting triglyceride, June 2012. Performed By: #### L IPR #### [facility] [address] [place] [address] Oncology Technician: Harpal Adair MD Magnesiumon 08-12-2023 Magnesium [Mass/Vol] 2.1 mg/dL Normal 1.6-2.6 [facility] Comment on above: Performed By: #### P THNCA, FEBC, FERI, GLYHGB, VD25 #### [facility] [address] [place] [address] Oncology Technician: Harpal Adair MD #### AGNES OLIVO, AZN #### [facility] [address], [place] [id number] Oncology Technician: Patricio Zuñiga MD #### ANGEL, MG, CDP #### [facility] [address] [place] [address] [place] [address] Oncology Technician: Hilton Armenta MD PTH, Intacton 08-12-2023 PTH, Intact 17.1 pg/mL Normal 14.0-72.0 [facility] Comment on above: Result Comment: SAMP LES FROM PATIENTS ROUTINELY RECEIVING HIGH DOSE BIOTIN THERAPY MAY SHOW FALSELY DEPRESSED RESULTS. ADDITIONAL INFORMATION MAY BE REQUIRED FOR DIAGNOSIS. Performed By: #### P BAILEY, ALFONSO, FERI, GLYHGB, VD25 #### [address] [id number] Oncology Technician: Harpal Adair MD #### AGNES OLIVO, AZN #### [facility] [address] [place] [address] Oncology Technician: Patricio Zuñiga MD #### ANGEL, MG, CDP #### [address] [place] [address] Oncology Technician: Hilton Armenta MD Thyroid Stim. Horm.on 2022 Thyroid Stim. Horm. 1.50 uIU/mL Normal 0.30-5.00 [facility] Comment on above: Performed By: #### P DENNISA, FEBC, FERI, GLYHGB, VD25 #### [address] [place], [place] 1898208 Oncology Technician: Harpal Adair MD #### AGNES OLIVO, AZN #### [facility] [address] [place], [place] [id number] Oncology Technician: Patricio Zuñiga MD #### ANGEL, MG, CDP #### [facility] [address] [place] [address] Oncology Technician: Hilton Armenta MD Thyroxine, Freeon 08-12-2023 Thyroxine, Free 1.2 ng/dL Normal 0.9-1.7 [facility] Comment on above: Performed By: #### P THNCA, FEBC, FERI, GLYHGB, VD25 #### [facility] [address] [place], [place] 9150008 Oncology Technician: Harpal Adair MD #### PALLAVI, AVITB1, AZN #### [facility] [address] [place], [place] [id number] Oncology Technician: Patricio Zuñiga MD #### CP, MG, CDP #### [facility] [address] [place] [address] Oncology Technician: Hilton Armenta MD US GALLBLADDER RUQon 023 US GALLBLADDER RUQ EXAMINATION: RIGHT UPPER QUADRANT ULTRASOUND 08/12/2023 7:25 am COMPARISON: None. HISTORY: ORDERING SYSTEM PROVIDED HISTORY: [employer] pain TECHNOLOGIST PROVIDED HISTORY: This procedure can be scheduled via [employer]. Access your [employer] account by visiting [employer]. FINDINGS: LIVER: The liver demonstrates normal echogenicity [...] Bret Monson DO 08/12/23 Final result Normal [facility] Vitamin D 25 OHon 08-12-2023 Vitamin D 25 OH 45.1 ng/mL Normal >29.9 [facility] Comment on above: Result Comment: Reference Range: Vitamin D status Range Deficiency <20 ng/mL Mild Deficiency 20-30 ng/mL Sufficiency 30-100 ng/mL Toxicity >100 ng/mL Performed By: #### P THNCA, FEBC, FERI, GLYHGB, VD25 #### [facility] [address] [place] [address] Oncology Technician: Harpal Adair MD #### TYREE OLIVO1, AZN #### [facility] [address] [place] [address] Oncology Technician: Patricio Zuñiga MD #### CP, MG, CDP #### [facility] [address] [place] [address] Oncology Technician: Hilton Armenta MD Patient Correspondenceon Patient Correspondence [id number] F Normal [facility] CBC with Diffon 07-30-2023 Abs. Basophil 0.08 k/uL Normal 0.00-0.20 [facility] Comment on above: Performed By: #### T BRIANNA, CDP, LIP, CP #### [facility] [address] [place] [address] Oncology Technician: Harpal Adair MD Abs.Imm.Granulocyte 0.04 k/uL Normal 0.00-0.30 [facility] Comment on above: Performed By: #### T SH, CDP, LIP, CP #### [facility] [address] [place] [address] Oncology Technician: Harpal Adair MD Abs.Neutrophil (Seg) 6.94 k/uL Normal 1.50-8.10 [facility] Comment on above: Performed By: #### T SH, CDP, LIP, CP #### [facility] [facility] [address] [place] [address] Oncology Technician: Harpal Adair MD Basophils/100 WBC (Bld) 1 % Normal 0-2 [facility] Comment on above: Performed By: #### T SH, CDP, LIP, CP #### [facility] [address] [place] [address] Oncology Technician: Harpal Adair MD Eosinophils (Bld) [#/Vol] 0.23 10*3/uL Normal 0.00-0.44 [facility] Comment on above: Performed By: #### T SH, CDP, LIP, CP #### [facility] [address] [place] [address] Oncology Technician: Harpal Adair MD Eosinophils/100 WBC (Bld) 2 % Normal 1-4 [facility] Comment on above: Performed By: #### T SH, CDP, LIP, CP #### [facility] [address] [place] [address] Oncology Technician: Harpal Adair MD Erythrocyte distribution width (RBC) [Ratio] 15.3 % High 11.8-14.4 [facility] Comment on above: Performed By: #### T SH, CDP, LIP, CP #### [facility] [address] [place] [address] Oncology Technician: Harpal Adair MD Hematocrit (Bld) [Volume fraction] 38.8 % Normal 36.3-47.1 [facility] Comment on above: Performed By: #### T SH, CDP, LIP, CP #### [facility] [address] [place] [address] Oncology Technician: Harpal Adair MD Hemoglobin (Bld) [Mass/Vol] 12.5 g/dL Normal 11.9-15.1 [facility] Comment on above: Performed By: #### T SH, CDP, LIP, CP #### [address] [address] Oncology Technician: Harpal Adair MD Immature granulocytes/100 WBC (Bld) 0 % Normal 0 [facility] Comment on above: Performed By: #### T SH, CDP, LIP, CP #### [address] [address] Oncology Technician: Harpal Adair MD Lymphocytes (Bld) [#/Vol] 2.19 10*3/uL Normal 1.10-3.70 [facility] Comment on above: Performed By: #### T SH, CDP, LIP, CP #### [address] [address] Oncology Technician: Harpal Adair MD Lymphocytes/100 WBC (Bld) 21 % Low 24-43 [facility] Comment on above: Performed By: #### T SH, CDP, LIP, CP #### [address] [address] Oncology Technician: Harpal Adair MD MCH (RBC) [Entitic mass] 30.6 pg Normal 25.2-33.5 [facility] Comment on above: Performed By: #### T SH, CDP, LIP, CP #### [address] [address] Oncology Technician: Harpal Adair MD MCHC (RBC) [Mass/Vol] 32.2 g/dL Normal 28.4-34.8 [facility] Comment on above: Performed By: #### T SH, CDP, LIP, CP #### [address] [address] Oncology Technician: Harpal Adair MD MCV (RBC) [Entitic vol] 94.9 fL Normal 82.6-102.9 [facility] Comment on above: Performed By: #### T SH, CDP, LIP, CP #### [address] [address] Oncology Technician: Harpal Adair MD Monocytes (Bld) [#/Vol] 0.74 10*3/uL Normal 0.10-1.20 [facility] Comment on above: Performed By: #### T SH, CDP, LIP, CP #### [address] [address] Oncology Technician: Harpal Adair MD Monocytes/100 WBC (Bld) 7 % Normal 3-12 [facility] Comment on above: Performed By: #### T SH, CDP, LIP, CP #### [address] [address] Oncology Technician: Harpal Adair MD Neutrophil (Seg) 69 % High 36-65 [facility] Comment on above: Performed By: #### T SH, CDP, LIP, CP #### [address] [address] Oncology Technician: Harpal Adair MD NRBC Automated 0.0 per 100 WBC Normal 0.0 [facility] Comment on above: Performed By: #### T SH, CDP, LIP, CP #### [address] [address] Oncology Technician: Harpal Adair MD Platelet mean volume (Bld) [Entitic vol] 12.0 fL Normal 8.1-13.5 [facility] Comment on above: Performed By: #### T SH, CDP, LIP, CP #### [address] [address] Oncology Technician: Harpal Adair MD Platelets (Bld) [#/Vol] 348 10*3/uL Normal 138-453 [facility] Comment on above: Performed By: #### T SH, CDP, LIP, CP #### [address] [address] Oncology Technician: Harpal Adair MD RBC (Bld) [#/Vol] 4.09 10*6/uL Normal 3.95-5.11 [facility] Comment on above: Performed By: #### T SH, CDP, LIP, CP #### [address] [address] Oncology Technician: Harpal Adair MD RBC morphology finding Nom (Bld) ANISOCYTOSIS PRESENT Normal [facility] Comment on above: Performed By: #### T SH, CDP, LIP, CP #### [address] [address] Oncology Technician: Harpal Adair MD WBC (Bld) [#/Vol] 10.2 10*3/uL Normal 3.5-11.3 [facility] Comment on above: Performed By: #### T SH, CDP, LIP, CP #### [facility] [employer] [address] [place] [address] Oncology Technician: Harpal Adair MD Comp Metabolic Profon 2022 Bilirubin [Mass/Vol] mg/dL Low 0.3-1.2 [facility] Comment on above: Performed By: #### T SH, CDP, LIP, CP #### [facility] [address] [place] [address] Oncology Technician: Harpal Adair MD Albumin [Mass/Vol] 4.4 g/dL Normal 3.5-5.2 [facility] Comment on above: Performed By: #### T SH, CDP, LIP, CP #### [facility] [address] [place] [address] Oncology Technician: Harpal Adair MD Albumin/Glob Ratio 1.4 Normal 1.0-2.5 [facility] Comment on above: Performed By: #### T SH, CDP, LIP, CP #### [facility] [address] [place] [address] Oncology Technician: Harpal Adair MD Alkaline Phos 76 U/L Normal 35-104 [facility] Comment on above: Performed By: #### T SH, CDP, LIP, CP #### [address] [address] Oncology Technician: Harpal Adair MD ALT [Catalytic activity/Vol] 20 U/L Normal 5-33 [facility] Comment on above: Performed By: #### T SH, CDP, LIP, CP #### [address] [address] Oncology Technician: Harpal Adair MD Anion gap [Moles/Vol] 11 mmol/L Normal 9-17 [facility] Comment on above: Performed By: #### T SH, CDP, LIP, CP #### [address] [address] Oncology Technician: Harpal Adair MD AST [Catalytic activity/Vol] 22 U/L Normal <32 [facility] Comment on above: Performed By: #### T SH, CDP, LIP, CP #### [address] [address] Oncology Technician: Harpal Adair MD Calcium [Mass/Vol] 9.6 mg/dL Normal 8.6-10.4 [facility] Comment on above: Performed By: #### T SH, CDP, LIP, CP #### [facility] [address] [place] [address] Oncology Technician: Harpal Adair MD Chloride [Moles/Vol] 105 mmol/L Normal 98-107 [facility] Comment on above: Performed By: #### T SH, CDP, LIP, CP #### [facility] [address] [place] [address] Oncology Technician: Harpal Adair MD CO2 [Moles/Vol] 23 mmol/L Normal 20-31 [facility] Comment on above: Performed By: #### T SH, CDP, LIP, CP #### [address] [address] Oncology Technician: Harpal Adair MD Creatinine [Mass/Vol] 0.6 mg/dL Normal 0.5-0.9 [facility] Comment on above: Performed By: #### T SH, CDP, LIP, CP #### [address] [address] Oncology Technician: Harpal Adair MD GFR/1.73 sq M.predicted among non-blacks MDRD (S/P/Bld) [Vol rate/Area] mL/min/{1.73_m2} Normal >60 [facility] Comment on above: [...] CDP, LIP, CP #### [facility] [address] [place] [address] Oncology Technician: Harpal Adair MD Glucose [Mass/Vol] 73 mg/dL Normal 70-99 [facility] Comment on above: Performed By: #### T SH, CDP, LIP, CP #### [facility] [address] [place] [address] Oncology Technician: Harpal Adair MD Potassium [Moles/Vol] 4.0 mmol/L Normal 3.7-5.3 [facility] Comment on above: Performed By: #### T SH, CDP, LIP, CP #### [address] [address] Oncology Technician: Harpal Adair MD Protein [Mass/Vol] 7.5 g/dL Normal 6.4-8.3 [facility] Comment on above: Performed By: #### T SH, CDP, LIP, CP #### [address] [address] Oncology Technician: Harpal Adair MD Sodium [Moles/Vol] 139 mmol/L Normal 135-144 [facility] Comment on above: Performed By: #### T SH, CDP, LIP, CP #### [facility] [address] [place] [address] Oncology Technician: Harpal Adair MD Urea nitrogen [Mass/Vol] 15 mg/dL Normal 6-20 [facility] Comment on above: Performed By: #### T SH, CDP, LIP, CP #### [address] [address] Oncology Technician: Harpal Adair MD Lipaseon 07-30-2023 Lipase [Catalytic activity/Vol] 45 U/L Normal 13-60 [facility] Comment on above: Performed By: #### T SH, CDP, LIP, CP #### [facility] [address] [place] [address] Oncology Technician: Harpal Adair MD Thyroid Stim. Horm.on 2022 Thyroid Stim. Horm. 1.18 uIU/mL Normal 0.30-5.00 [facility] Comment on above: Performed By: #### T SH, CDP, LIP, CP #### [facility] [address] [place] [address] Oncology Technician: Harpal Adair MD UA w/Reflex Cultureon 2022 Bilirubin, SemiQt,Ur Negative Normal NEG [facility] Comment on above: Performed By: #### U AX #### [facility] [address] [place] [address] Oncology Technician: Harpal Adair MD Blood, Urine Negative Normal NEG [facility] Comment on above: Performed By: #### U AX #### [facility] [address] [place] [address] Oncology Technician: Harpal Adair MD Clarity (U) Clear Normal CLEAR [facility] Comment on above: Performed By: #### U AX #### [facility] [address] [place] [address] Oncology Technician: Harpal Adair MD Color (U) Yellow Normal YEL [facility] Comment on above: Performed By: #### U AX #### [address] [address] Oncology Technician: Harpal Adair MD Comment Microscopic exam not performed based on chemical results unless requested in Normal [facility] Comment on above: Result Comment: orig inal order. Performed By: #### U AX #### [address] [address] Oncology Technician: Harpal Adair MD Glucose Ql (U) Negative Normal NEG [facility] Comment on above: Performed By: #### U AX #### [facility] [address] [place] [address] Oncology Technician: Harpal Adair MD Ketones Ql (U) Negative Normal NEG [facility] Comment on above: Performed By: #### U AX #### [facility] [address] [place] [address] Oncology Technician: Harpal Adair MD Leukocyte esterase Test strip Ql (U) Negative Normal NEG [facility] Comment on above: Performed By: #### U AX #### [facility] [address] [place] [address] Oncology Technician: Harpal Adair MD Nitrite,Ur Negative Normal NEG [facility] Comment on above: Performed By: #### U AX #### [facility] [address] [place] [address] Oncology Technician: Harpal Adair MD PH,Ur 5.0 Normal 5.0-8.0 [facility] Comment on above: Performed By: #### U AX #### [facility] [address] [place] [address] Oncology Technician: Harpal Adair MD Protein Ql (U) Negative Normal NEG [facility] Comment on above: Performed By: #### U AX #### [facility] [address] [place] [address] Oncology Technician: Harpal Adair MD Spec. [place],Ur 1.020 Normal 1.005-1.030 [facility] Comment on above: Performed By: #### U AX #### [address] [address] Oncology Technician: Harpal Adair MD Urobilinogen,Ur Normal Normal 0.0-1.0 [facility] Comment on above: Performed By: #### U AX #### [address] [address] Oncology Technician: Harpal Adair MD ED Note-Physicianon 10-31-20 23 [...] weeks. She did see her psychiatrist at [facility] today and they are starting her [...] of care. (more content not included)... Normal [facility] Comment on above: Result Comment: Elec tronically Signed By: Shama Macdonald PA-C\\.br\\Date and Time Signed: 07/14/23 19:57 EDT\\.br\\Electronically Co-Signed By: Alexis Shukla DO\\.benito\\Date and Time Co-Signed: 07/20/23 07:11 EST COVID Quick Testingon 2022 Result Negative Anki Other Consultation Noteon 07-08-20 23 Consultation Note [id number]#[id number] F Normal [facility] Consent for Treatmenton 06-14 Consent for Treatment [id number]#[id number] F Normal [facility] ED Clinical Summaryon 2022 ED Clinical Summary (Inserted Image. Jordana ble to display) [place] [id number] ED Clinical Summary Person Information Name: SHAZIA CHOU [facility] Age: 32 Years : 1990 Sex: Female Language: Scottish PCP: Jennie Ames DO Marital Status: Phone: [phone] MRN: Visit Id: Visit Reason: Headache; Neck [...] 07/02/2023 15:29:14 07/02/2023 15:29:14 07/02/2023 15:29:14 ADDRESS: [address] [place] [phone] PHYS DOC NOTES: MEDICAL INFORMATION: Prescriptions Given: [...] EDUCATION INFORMATION: Instructions: Follow up: DIAGNOSIS: Normal [facility] ED Patient Education Noteon 07-02-2023 ED Patient Education Note Normal [facility] ED Patient Summaryon 023 ED Patient Summary (Inserted Image. Jordana ble to display) [address] [address] Patient Discharge Instructions Person Information Name: SHAZIA CHOU Age: 32 Years Arrival Date: 07/02/2023 14:03:05 Discharge Diagnosis: Primary Care Physician: Jennie Ames DO Provider Information Primary Provider: Bakari Chetser DO Advanced Typesetting Supervisor:Merari Polanco PA-C The exam and treatment you received in the Emergency Department were for an urgent problem and are not intended as complete care. It is important that you follow up with a doctor, nurse practitioner, or physician?s therapeutic assistant for ongoing care. If your symptoms [...] opioids can be used to help relieve xyxodsxg-fd-nmzkbj pain and are often prescribed following a [...] struggling with addiction, tell your health care program resident and ask for guidance or call [facility] National Helpline at 2-155-017-HELP. v Source: [place] Department of Health and Human Services/Center for Disease Control & Prevention [facility] Medications Given: Medication Dose Route No medication (more content not included)... Normal [facility] Consultation Noteon 06-22-20 Consultation Note [id number]#[id number] Normal [facility] Consultation Noteon 06-19-20 Consultation Note [id number]#[id number] F [facility] CNPNon 06-15-2023 CNPN Telephone (NEADFV) -------- SHAZIA CHOU ([id number]) 1990 F Date Time Provider Department 06/15/23 EILEEN MANZANO During your visit today, we recorded the following information about you: Bunny Durbin, MARCO 06/15/2023 4:57 PM Signed Received clinical notes and test results from [facility] ED visit from 06/10/23. 13 pages. Scanned to chart via [employer]. Routed to provider for review Glen Singh [...] is not alleviating the problem. Patient # [phone] Sophiajil Gorge 07/03/2023 12:15 PM Signed Per instructions from Dr. Manzano. LM for patient, also sent message via [employer]. She needs to be back on diamox [...] 40 mg by mouth once daily. - bkhlkbfwsswi-nem-dixc-FA -vit K (BARIATRIC MULTIVITAMINS) 45 mg iron- [...] Encounter Status:Closed by GORGE BETANCUR on 07/03/23 [facility] GLORIA Telephone (NIQ) -------- SHAZIA CHOU ([id number]) 1990 F Date Time Provider Department 06/15/23 EILEEN MANZANO During your visit today, we recorded the following information about you: Fabby Fam 06/15/2023 3:[address] Brain report from [facility]. Scanned to chart for review. Bunny Durbin RN 06/15/2023 4:[address] brain results available in scanned documents for your review. Bunny Durbin RN 06/16/2023 3:04 PM Signed Call to patient without answer. Voice message left asking her to review her Remote Assistanthart message with a response from . Informed [...] 40 mg by mouth once daily. - yftwvzawwcei-cnw-feso-FA -vit K (BARIATRIC MULTIVITAMINS) 45 mg iron- [...] Encounter Status:Closed by BUNNY DURBIN [facility] 06/16/[address] [facility] -------- SONYASHAZIA ([id number]) 1990 F Date Time Provider Department 06/11/23 [...] Marksheila, 1990). 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 The results are available [facility]. Patient is still experiencing vision changes and headaches. [phone] Thank you calling [facility]. You will receive a return call [...] Signed Spoke with Karin at radiology at [facility]. She will fax the CT Brain results to our office. Fax number provided. Bunny Durbin RN 06/12/2023 2:53 PM Signed As of this hour, no fax received for CT Brain . Spoke with territory account representative again in radiology and different fax [...] was evaluated in the ED today at [place] for complaints of 'feeling like someone was [...] 40 mg by mouth once daily. - wwiczsdqolpx-wgd-ndsb-FA -vit K (BARIATRIC MULTIVITAMINS) 45 mg iron- [...] Status:Closed by BUNNY DURBIN on 06/15/23 Normal [facility] Discharge Instructionson Discharge Instructions [id number]#[id number] :127 Normal [facility] Acetamnphn Lvlon 06-09-2023 Acetaminophen [Mass/Vol] ug/mL Low 15-30 [facility] Comment on above: Performed By: #### 2 466664, 2477009, 4498816, 3815820, 5556165, 81008373 ####[facility] [address] [place] [address] Auto Diffon 06-09-2023 Basophils/100 WBC (Bld) 0.6 % Normal 0.0-2.0 [facility] Comment on above: Order Comment: Order Added by Discern Expert. Performed By: #### 2 456221, 1129429, 3454983, 6482437, 0634104, 95340056 ####[facility] [address] [place] [address] Basophils/Leukocytes Auto (Bld) [Pure # fraction] 0.0 E9/L Normal 0.0-0.2 [facility] Comment on above: Order Comment: Order Added by Discern Expert. Performed By: #### 2 198257, 1951787, 1469485, 1475990, 7620372, 04785054 ####[facility] [address] [place] [address] Eosinophils/100 WBC (Bld) 1.9 % Normal 0.0-8.0 [facility] Comment on above: Order Comment: Order Added by Discern Expert. Performed By: #### 2 524986, 2902846, 3882141, 0730979, 6403682, 35352475 ####[place] [address] [place] [address] Eosinophils/Leukocyte s Auto (Bld) [Pure # fraction] 0.2 E9/L Normal 0.0-0.5 [facility] Comment on above: Order Comment: Order Added by Discern Expert. Performed By: #### 2 548874, 7070395, 6710495, 4248158, 0441356, 67161985 ####[address] [address] Lymphocytes/100 WBC (Bld) 23.4 % Normal 14.0-50.0 [facility] Comment on above: Order Comment: Order Added by Discern Expert. Performed By: #### 2 567589, 3275086, 1243265, 1238176, 3530905, 96036595 ####[address] [address] Lymphocytes/Leukocyte s Auto (Bld) [Pure # fraction] 2.0 E9/L Normal 1.0-4.0 [facility] Comment on above: Order Comment: Order Added by Discern Expert. Performed By: #### 2 863579, 6532482, 3692089, 3920264, 6333569, 94452759 ####[address] [address] Monocytes/100 WBC (Bld) 6.9 % Normal 4.0-14.0 [facility] Comment on above: Order Comment: Order Added by Discern Expert. Performed By: #### 2 103986, 9962439, 4571973, 6791838, 9473694, 48496787 ####[address] [address] Monocytes/Leukocytes Auto (Bld) [Pure # fraction] 0.6 E9/L Normal 0.2-1.0 [facility] Comment on above: Order Comment: Order Added by Discern Expert. Performed By: #### 2 013671, 9941721, 3884966, 5931640, 7737082, 86979686 ####[place] [address] [place] [address] Neutrophils/100 WBC (Bld) 67.2 % Normal 36.0-75.0 [facility] Comment on above: Order Comment: Order Added by Discern Expert. Performed By: #### 2 180842, 7272610, 8733292, 9988652, 7631895, 45665292 ####[place] [place] [address] Neutrophils/Leukocyte s Auto (Bld) [Pure # fraction] 5.6 E9/L Normal 2.0-7.5 [facility] Comment on above: Order Comment: Order Added by Discern Expert. Performed By: #### 2 221845, 1754878, 2440718, 3823944, 6586750, 45357641 ####[address] [address] CBC w/ Auto Diffon 3 Erythrocyte distribution width (RBC) [Ratio] 18.2 % High 10.9-14.2 [facility] Comment on above: Performed By: #### 2 540637, 3832749, 5900223, 4878564, 5835945, 15246470 ####[place] [address] [place] [address] Hematocrit (Bld) [Volume fraction] 34.3 % Normal 34.0-46.0 [facility] Comment on above: Performed By: #### 2 070268, 5557567, 6015556, 3009044, 5858544, 78123632 ####[place] [address] [place] [address] Hemoglobin (Bld) [Mass/Vol] 11.5 g/dL Low 12.0-16.0 [facility] Comment on above: Performed By: #### 2 595205, 4356183, 8580633, 4543114, 8165786, 22388207 ####[place] [address] [place] [address] MCH (RBC) [Entitic mass] 30.6 pg Normal 27.0-34.0 [facility] Comment on above: Performed By: #### 2 848708, 0136735, 2170618, 5400511, 1824821, 39945904 ####[place] [address] [place] [address] MCHC (RBC) [Mass/Vol] 33.6 g/dL Normal 31.4-36.0 [facility] Comment on above: Performed By: #### 2 416284, 6374015, 3247303, 0767609, 2382410, 06265343 ####[address] [address] MCV (RBC) [Entitic vol] 91.0 fL Normal 80.0-100.0 [facility] Comment on above: Performed By: #### 2 009581, 4804576, 1584884, 3712014, 6498324, 23041171 ####[address] [address] Platelet mean volume (Bld) [Entitic vol] 9.8 fL Normal 6.4-10.8 [facility] Comment on above: Performed By: #### 2 540316, 9277567, 3006270, 9096480, 8945422, 29376329 ####[address] [address] Platelets (Bld) [#/Vol] 283.0 E9/L Normal 150.0-500.0 [facility] Comment on above: Performed By: #### 2 688206, 3020065, 2849230, 5113181, 2879363, 52908413 ####[place] [place] [address] RBC (Bld) [#/Vol] 3.8 E12/L Low 4.3-5.9 [facility] Comment on above: Performed By: #### 2 934122, 8876441, 4056404, 8901318, 1928058, 00682276 ####[facility] [address] [place] [address] WBC corrected for nucl RBC Auto (Bld) [#/Vol] 8.4 E9/L Normal 4.0-11.0 [facility] Comment on above: Performed By: #### 2 082651, 3684581, 4625829, 3438305, 2335889, 53884239 ####[place] [address] [place] [address] CMPon 06-09-2023 Albumin [Mass/Vol] 4.1 g/dL Normal 3.3-5.0 [facility] Comment on above: Performed By: #### 2 734215, 3857863, 1484426, 5186552, 8359204, 64555889 ####[place] [address] [place] [address] Albumin/Globulin (S) [Mass conc ratio] 1.3 Normal 1.1-2.2 [facility] Comment on above: Performed By: #### 2 273223, 6287322, 2826827, 7677717, 9493119, 61554313 ####[place] [place] [address] ALP [Catalytic activity/Vol] 58 Int._Unit/L Normal 21-98 [facility] Comment on above: Performed By: #### 2 929027, 6660736, 0328007, 5126779, 6767493, 29209710 ####[place] [address] [place] [address] ALT No additional P-5'-P [Catalytic activity/Vol] 18 Int._Unit/L Normal 6-46 [facility] Comment on above: Performed By: #### 2 398635, 4269318, 7907145, 2419730, 1075140, 51823057 ####[place] [address] [place] [address] AST [Catalytic activity/Vol] 20 Int._Unit/L Normal 5-43 [facility] Comment on above: Performed By: #### 2 049799, 0471535, 2877643, 6889241, 6872987, 35196255 ####[facility] [address] [place] [address] Bilirubin [Mass/Vol] 0.1 mg/dL Normal 0.0-1.1 [facility] Comment on above: Performed By: #### 2 564807, 0320624, 8552688, 6987984, 1569018, 84072337 ####[facility] [address] [place] [address] Creatinine [Mass/Vol] 0.6 mg/dL Normal 0.5-1.3 [facility] Comment on above: Performed By: #### 2 072890, 3869724, 4768114, 5203569, 5220750, 54609798 ####[facility] [address] [place] [address] Globulin (S) [Mass/Vol] 3.2 g/dL Normal 1.4-4.0 [facility] Comment on above: Performed By: #### 2 741802, 1162522, 1984454, 6506751, 5150380, 48190085 ####[facility] [address] [place] [address] Protein [Mass/Vol] 7.3 g/dL Normal 6.0-7.8 [facility] Comment on above: Performed By: #### 2 021046, 3610873, 7330641, 6463020, 7200140, 60938628 ####[facility] [address] [place] [address] Urea nitrogen [Mass/Vol] 15 mg/dL Normal 5-21 [facility] Comment on above: Performed By: #### 2 925802, 2799598, 4761243, 4801457, 2480507, 25866403 ####[facility] [address] [place] [address] Urea nitrogen/Creatinine [Mass ratio] 25 No Units High 10-20 [facility] Comment on above: Performed By: #### 2 395664, 3142242, 8440343, 8825265, 0657769, 64500251 ####[facility] [address] [place] [address] Anion gap [Moles/Vol] 13 mmol/L Normal 6-16 [facility] Comment on above: Performed By: #### 2 113250, 9106243, 5157481, 8270700, 1502846, 86897185 ####[facility] [address] [place] [address] Calcium [Mass/Vol] 9.3 mg/dL Normal 8.9-11.1 [facility] Comment on above: Performed By: #### 2 661931, 5939075, 8442408, 8216988, 5858878, 39026535 ####[facility] [address] [place] [address] Chloride [Moles/Vol] 107 mmol/L Normal 101-111 [facility] Comment on above: Performed By: #### 2 372477, 9063994, 2704948, 8163262, 4156883, 84788726 ####[facility] [address] [place] [address] CO2 [Moles/Vol] 23 mmol/L Normal 21-31 [facility] Comment on above: Performed By: #### 2 515848, 9596455, 5198572, 3699947, 2041118, 74553584 ####[facility] [address] [place] [address] Glucose [Mass/Vol] 91 mg/dL Normal 55-199 [facility] Comment on above: Result Comment: If t his glucose result represents a fasting glucose, interpretation should refer to the following reference range: 55-99 mg/dL Performed By: #### 2 540994, 7468098, 8605102, 6112455, 2956253, 66087711 ####[facility] [address] [place] [address] Potassium [Moles/Vol] 3.6 mmol/L Normal 3.5-5.3 [facility] Comment on above: Performed By: #### 2 767368, 4969186, 1382849, 5499653, 2899079, 54726867 ####[facility] [address] [place] [address] Sodium [Moles/Vol] 139 mmol/L Normal 135-145 [facility] Comment on above: Performed By: #### 2 246984, 6899451, 8139567, 2463371, 7130617, 01530406 ####[facility] [address] [place] [address] Consent for Treatmenton 05-16 Consent for Treatment [id number]: 127 Normal [facility] ED Clinical Summaryon 2022 ED Clinical Summary (Inserted Image. Jordana ble to display) [address] [address] ED Clinical Summary Person Information Name: SHAZIA CHOU [facility] Age: 32 Years : 1990 Sex: Female Language: Scottish PCP: Jennie Ames DO Marital Status: Phone: [phone] MRN: Visit Id: Visit Reason: Headache; HEADACHE [...] 06/09/2023 18:42:22 06/09/2023 18:42:22 06/09/2023 18:42:22 ADDRESS: [address] [place] [id number] PHYS DOC NOTES: MEDICAL INFORMATION: Prescriptions Given: [...] (at bedtime). PATIENT EDUCATION INFORMATION: Instructions: Paresthesia, Nlux-ml-Fjyt; Migraine Headache, Vexv-vp-Gzlg Follow up: With: Address: When: [facility] In 3 days 06/12/2023 With: Address: When: Jennie Ames [facility] Shakir De La Paz, Mic C, [facility] [address] [place] [address] [facility] () In 3 days 06/12/2023 DIAGNOSIS: 1:Headache; 2:Paresthesia of arm Normal [facility] ED Patient Education Noteon 06-09-2023 ED Patient [...] liquor (44 mL). General instructions ? Take jvah-xrc-jcbbxsr and prescription medicines only as told by [...] provider. Document Revised: 05/12/2022 Document Reviewed: 05/12/2022 [employer] Patient Education ? 2022 [employer] Migraine Headache A migraine headache is [...] ? Tiredness. (more content not included)... Normal [facility] ED Patient Summaryon 023 ED Patient Summary (Inserted Image. Jordana ble to display) [address] [address] Patient Discharge Instructions Person Information Name: SHAZIA CHOU Age: 32 Years Arrival Date: 06/09/2023 15:33:36 Discharge Diagnosis: 1:Headache; 2:Paresthesia of arm Primary Care Physician: Jennie Ames DO Provider Information Primary Provider: Alexis Shkula DO Advanced Typesetting Supervisor:None The exam and treatment you received in the Emergency Department were for an urgent problem and are not intended as complete care. It is important that you follow up with a doctor, nurse practitioner, or physician?s therapeutic assistant for ongoing care. If your symptoms become worse or you do not improve as expected and you are unable to reach your usual health care provider, you should return to the Emergency Department. We are available 24 hours a day. SONYA SHAZIA L has been given the following list of patient education materials, prescriptions and follow-up instructions: Follow-up Instructions: With: Address: When: [facility] In 3 days 06/12/2023 With: Address: When: Jennie Ames [address]n, Mic C, [facility] [address] [place] [address] [facility] (1) In 3 days 06/12/2023 In the event that this physician does not participate in your insurance network, please consult with your insurance company to find a nearby participating provider. Patient Education Materials: Paresthesia, Iqwz-xy-Kzls; Migraine Headache, Bbcb-wb-Voem A MESSAGE TO ALL PATIENTS REGARDING OPIOIDS PRESCRIPTION OPIOIDS: WHAT YOU NEED TO KNOW Prescription opioids can be used to help relieve zhryvdoa-vt-mjgwoo pain and are often prescribed following a [...] addiction, tell (more content not included)... Normal [facility] Ethanolon 06-09-2023 Ethanol [Mass/Vol] mg/dL Normal <=7 [facility] Comment on above: Performed By: #### 2 117527 ####[facility] [address] [place] [address] Salicylateon 06-09-2023 Salicylates [Mass/Vol] mg/dL Low 6-29 [facility] Comment on above: Performed By: #### 2 444205, 9288839, 7308657, 8932699, 1160851, 51016740 ####[facility] [address] [place] [address] U Drug Screenon 06-09-2023 Amphetamines Screen method >1000 ng/mL Ql (U) Negative Normal Negative [facility] Comment on above: Result Comment: Nega tive Cutoff: <1000 ng/mL Performed By: #### 2 502339 ####[facility] [address] [place] [address] Barbiturates Screen Ql (U) Negative Normal Negative [facility] Comment on above: Result Comment: Nega tive Cutoff: <200 ng/mL Performed By: #### 2 828784 ####[facility] [address] [place] [address] Benzodiazepines Ql (U) Negative Normal Negative [facility] Comment on above: Result Comment: Nega tive Cutoff: <200 ng/mL Performed By: #### 2 789286 ####[facility] [address] [place] [address] Cocaine Ql (U) Negative Normal Negative [facility] Comment on above: Result Comment: Nega tive Cutoff: <300 ng/mL Performed By: #### 2 275752 ####[address] [place] [address] Opiates Screen Ql (U) Negative Normal Negative [facility] Comment on above: Result Comment: Nega tive Cutoff: <300 ng/mL Performed By: #### 2 232491 ####[address] [place] [address] Phencyclidine Screen method >25 ng/mL Ql (U) Negative Normal Negative [facility] Comment on above: Result Comment: Nega tive Cutoff: <25 ng/mL These drug screen results are to be used for medical (i.e., treatment) purposes only. Unconfirmed drug screening results must not be used for non-medical purposes (e.g., employment testing, legal testing). Performed By: #### 2 269466 ####[address] [place] [address] Tetrahydrocannabinol Screen method >50 ng/mL Ql (U) Negative Normal Negative [facility] Comment on above: Result Comment: Nega tive Cutoff: <50 ng/mL Performed By: #### 2 983231 ####[facility] [address] [place] [address] UA With Cult Reflexon 2022 Bilirubin Ql (U) Negative Normal Negative [facility] Comment on above: Performed By: #### 1 5796215 #### [facility] [address] [place] [address] Clarity (U) CLEAR Normal Clear [facility] Comment on above: Performed By: #### 1 8439651 #### [facility] [address] [place] [address] Color (U) YELLOW Normal Yellow [facility] Comment on above: Performed By: #### 1 3863973 #### [facility] [address] [place] [address] Crystals LM Ql (Urine sed) Present Normal [facility] Comment on above: Performed By: #### 1 3483775 #### [facility] [address] [place] [address] Epithelial cells.squamous LM.HPF (Urine sed) [#/Area] 0-2 Normal 0-2 [facility] Comment on above: Performed By: #### 1 0333755 #### [facility] [address] [place] [address] Glucose Test strip (U) [Mass/Vol] Negative Normal Negative [facility] Comment on above: Performed By: #### 1 0533994 #### [facility] [address] [place] [address] Hemoglobin Ql (U) Negative Normal Negative [facility] Comment on above: Performed By: #### 1 2137929 #### [facility] [address] [place] [address] Ketones (U) [Mass/Vol] Negative Normal Negative [facility] Comment on above: Performed By: #### 1 5331455 #### [facility] [address] [place] [address] [place].plasma/Lithiu m.RBC (Bld) [Mass ratio] 0-3 Normal 0-3 [facility] Comment on above: Performed By: #### 1 1158180 #### [facility] [address] [place] [address] Nitrite Ql (U) Negative Normal Negative [facility] Comment on above: Performed By: #### 1 2144920 #### [facility] [address] [place] [address] pH (U) 6.0 [pH] Invalid Interpretation Code 5.0-9.0 [facility] Comment on above: Performed By: #### 1 0205143 #### [facility] [address] [place] [address] Protein (U) [Mass/Vol] Negative Normal Negative [facility] Comment on above: Performed By: #### 1 4307497 #### [facility] [address] [place] [address] Specific gravity (U) [Rel density] 1.010 Invalid Interpretation Code 1.005-1.030 [facility] Comment on above: Performed By: #### 1 3594387 #### [facility] [address] [place] [address] Type of Urine collection method Clean Catch Normal [facility] Comment on above: Performed By: #### 1 5831319 #### [facility] [address] [place] [address] Urobilinogen Qn (U) 0.2 {Lucila'U}/dL Normal 0.0-1.0 [facility] Comment on above: Performed By: #### 1 9794931 #### [facility] [address] [place] [address] WBC Auto Ql (U) Negative Normal Negative [facility] Comment on above: Performed By: #### 1 5018742 #### [facility] [address] [place] [address] WBC LM.HPF (Urine sed) [#/Area] 0-5 Normal 0-5 [facility] Comment on above: Performed By: #### 1 9281881 #### [facility] [address] [place] [address] eGFRon 06-09-2023 GFR/1.73 sq M.predicted among non-blacks MDRD (S/P/Bld) [Vol rate/Area] 121 mL/min/1.73 m2 Normal >=59 [facility] Comment on above: Order Comment: Order added by Discern Expert. Result Comment: Manual Writer gurpreet kidney disease could be indicated at eGFR's of less than 60 mL/min/1.73m2. Kidney failure is indicated at less than 15 mL/min/1.73m2. Performed By: #### 2 387624, 5774859, 0563937, 4717372, 9037388, 77512593 ####[facility] [address] [place] [address] Vit Aon 03-24-2023 Retinol [Mass/Vol] 42.9 microgram/dL Invalid Interpretation Code 18.9-57.3 [facility] Comment on above: Result Comment: Refe rence intervals for vitamin A determined from [facility] internal studies. Individuals with vitamin A less than 20 ug/dL are considered vitamin A deficient and those with serum concentrations less than 10 ug/dL are considered severely deficient. This test was developed and its performance characteristics determined by [employer]. It has not been cleared or approved by the Food and Drug Administration. Performed at: [address] [id number] MD Shorty Rodríguez Performed By: #### 2 900314, 61402426, 5679505, 3573793, 14222205, 00627547, 802701509, 6368008, 4542324, 29550930, 2732664, 0473371, 379901245, 14268886, 6365708, 3971594, 7717929, 5350234 ####[facility] [address] [place] [address] Vit B1on 03-24-2023 Thiamine (Bld) [Moles/Vol] 171.7 nmol/L Invalid Interpretation Code 66.5-200.0 [facility] Comment on above: Result Comment: This test was developed and its performance characteristics determined by [employer]. It has not been cleared or approved by the Food and Drug Administration. Performed at: [address] [id number] MD Shorty Rodríguez Performed By: #### 2 334237, 84640966, 1040456, 4916729, 96822315, 29301443, 602966062, 5453033, 3008066, 20076849, 7223105, 1381751, 874898230, 99876826, 4260135, 3547160, 1616312, 1383090 ####[facility] [address] [place] [address] Zinc Lvlon 03-24-2023 Zinc [Mass/Vol] 85 microgram/dL Invalid Interpretation Code 44115 [facility] Comment on above: Result Comment: This test was developed and its performance characteristics determined by [employer]. It has not been cleared or approved by the Food and Drug Administration. Detection Limit = 5 Performed at: [address] [id number] MD Shorty Rodríguez Performed By: #### 2 950933, 12478409, 0228521, 8386219, 73480312, 02146993, 954741472, 8280296, 7258879, 75452491, 4469200, 2762319, 788626697, 27108287, 9813370, 8121477, 0713046, 5967894 ####[facility] [address] [place] [address] PTH Intacton 03-20-2023 Parathyrin.intact [Mass/Vol] 17 pg/mL Invalid Interpretation Code 15 [facility] Comment on above: Result Comment: Perf ormed at: [address] [id number] PhD Cordelia Madera Performed By: #### 1 8466882 ####[facility] [address] [place] [address] Auto Diffon 03-19-2023 Basophils/100 WBC (Bld) 1.1 % Normal 0.0-2.0 [facility] Comment on above: Order Comment: Order Added by Discern Expert. Performed By: #### 2 114564, 77731543, 9784927, 1623093, 95525814, 89002195, 773898584, 1885209, 1926427, 73719739, 6992821, 1971391, 280521644, 34966429, 5690849, 9560339, 5885712, 2036630 ####[facility] [address] [place] [address] Basophils/Leukocytes Auto (Bld) [Pure # fraction] 0.1 E9/L Normal 0.0-0.2 [facility] Comment on above: Order Comment: Order Added by Discern Expert. Performed By: #### 2 500761, 88343823, 0333570, 1791421, 00802866, 20590594, 653982572, 1205657, 4124220, 32878129, 6809998, 9309456, 920400321, 82432634, 9341992, 7422073, 2519056, 7870838 ####[address] [place] [address] Eosinophils/100 WBC (Bld) 4.1 % Normal 0.0-8.0 [facility] Comment on above: Order Comment: Order Added by Discern Expert. Performed By: #### 2 332467, 19677017, 1139507, 2874244, 55382998, 62983554, 864592792, 9927708, 3498259, 60772767, 5813535, 0437216, 930166660, 43199705, 3006986, 3578611, 7284440, 2311973 ####[address] [address] Eosinophils/Leukocyte s Auto (Bld) [Pure # fraction] 0.4 E9/L Normal 0.0-0.5 [facility] Comment on above: Order Comment: Order Added by Discern Expert. Performed By: #### 2 449891, 85424896, 9306376, 5461291, 65941450, 39069122, 057348866, 0171770, 3021551, 15666221, 9857086, 3626359, 710954723, 88684823, 5093166, 1899817, 3045977, 1462536 ####[facility] [address] [place] [address] Lymphocytes/100 WBC (Bld) 20.5 % Normal 14.0-50.0 [facility] Comment on above: Order Comment: Order Added by Discern Expert. Performed By: #### 2 710767, 53417935, 7795881, 0898806, 29651942, 72135713, 049598055, 3226693, 8823709, 75629918, 6554333, 3389149, 312096055, 25219969, 5183411, 6107666, 5203378, 4793866 ####[facility] [address] [place] [address] Lymphocytes/Leukocyte s Auto (Bld) [Pure # fraction] 2.1 E9/L Normal 1.0-4.0 [facility] Comment on above: Order Comment: Order Added by Discern Expert. Performed By: #### 2 480541, 23571340, 0547941, 9609989, 12285330, 48302915, 184437711, 6943405, 0577013, 50084199, 3938354, 8690533, 959066003, 35503768, 6186586, 4176341, 7072125, 5099396 ####[facility] [address] [place] [address] Monocytes/100 WBC (Bld) 7.6 % Normal 4.0-14.0 [facility] Comment on above: Order Comment: Order Added by Discern Expert. Performed By: #### 2 844572, 93139282, 1891635, 8011266, 85832017, 13997061, 426672063, 4116415, 1568031, 78292055, 7722440, 1449508, 399592129, 23544199, 1023312, 4796154, 2550920, 8618033 ####[facility] [address] [place] [address] Monocytes/Leukocytes Auto (Bld) [Pure # fraction] 0.8 E9/L Normal 0.2-1.0 [facility] Comment on above: Order Comment: Order Added by Discern Expert. Performed By: #### 2 766933, 77720009, 4047244, 1501263, 97313523, 49702092, 101057478, 5646103, 9508942, 13509275, 4386644, 4313557, 726972157, 92280422, 0228150, 8905809, 3679646, 7514056 ####[facility] [address] [place] [address] Neutrophils/100 WBC (Bld) 66.7 % Normal 36.0-75.0 [facility] Comment on above: Order Comment: Order Added by Discern Expert. Performed By: #### 2 597657, 41785564, 2134493, 4741330, 42818769, 68589490, 169240102, 4063752, 9323973, 10766846, 8047140, 0708944, 823885415, 13987496, 5118793, 2701978, 9235264, 0118813 ####[facility] [address] [place] [address] Neutrophils/Leukocyte s Auto (Bld) [Pure # fraction] 6.8 E9/L Normal 2.0-7.5 [facility] Comment on above: Order Comment: Order Added by Discern Expert. Performed By: #### 2 792274, 72887528, 7204615, 6390735, 32941054, 46868088, 091547721, 0826125, 8804807, 74543009, 5135640, 8795712, 353854917, 86282803, 4199235, 0108922, 4831623, 4660762 ####[address] [place] [address] CBC w/ Auto Diffon 3 Erythrocyte distribution width (RBC) [Ratio] 16.0 % High 10.9-14.2 [facility] Comment on above: Performed By: #### 2 957241, 44008746, 1212793, 0911931, 90607990, 12969945, 066989323, 8824166, 7148474, 00782734, 0641200, 3820646, 355189743, 52155846, 1854278, 3171633, 1928424, 4007188 ####[facility] [address] [place] [address] Hematocrit (Bld) [Volume fraction] 37.1 % Normal 34.0-46.0 [facility] Comment on above: Performed By: #### 2 911306, 73926474, 6153174, 9432535, 76678236, 85802836, 690209365, 0873399, 5611847, 62418045, 0803740, 0203964, 320111320, 91670864, 6227403, 5211521, 9716027, 9002936 ####[address] [place] [address] Hemoglobin (Bld) [Mass/Vol] 12.6 g/dL Normal 12.0-16.0 [facility] Comment on above: Performed By: #### 2 865723, 89912391, 6058566, 2570488, 25976273, 41608411, 201957827, 7172875, 5662846, 10736425, 0121351, 3958883, 864082715, 54724002, 0261427, 7200476, 0393779, 6868149 ####[address] [place] [address] MCH (RBC) [Entitic mass] 31.2 pg Normal 27.0-34.0 [facility] Comment on above: Performed By: #### 2 197271, 39775066, 4939498, 7872956, 70036993, 45075298, 074452425, 1744986, 0689493, 52915491, 3598609, 2362943, 649848235, 43688948, 5635880, 1681120, 9115694, 7500190 ####[address] [address] MCHC (RBC) [Mass/Vol] 33.9 g/dL Normal 31.4-36.0 [facility] Comment on above: Performed By: #### 2 273684, 38376587, 3906699, 7046413, 83276133, 06330840, 755427023, 4619888, 4127260, 54809858, 4007951, 2358821, 229908108, 29312086, 4367123, 3693615, 4450595, 9581510 ####[facility] [address] [place] [address] MCV (RBC) [Entitic vol] 92.0 fL Normal 80.0-100.0 [facility] Comment on above: Performed By: #### 2 071344, 12956713, 0816136, 2450325, 90225224, 97211697, 233042135, 0068800, 8863191, 06863210, 6656193, 9631463, 256897357, 97088253, 3628446, 5608452, 2732828, 0997067 ####[facility] [address] [place] [address] Platelet mean volume (Bld) [Entitic vol] 9.8 fL Normal 6.4-10.8 [facility] Comment on above: Performed By: #### 2 502623, 89582419, 3724989, 3798804, 36945082, 78605293, 561674330, 1787450, 8002070, 74647936, 5503733, 3133911, 745704983, 28072061, 2200620, 6931579, 3127301, 9021380 ####[address] [place] [address] Platelets (Bld) [#/Vol] 369.0 E9/L Normal 150.0-500.0 [facility] Comment on above: Performed By: #### 2 067019, 69467363, 4074796, 4302614, 42372156, 55274793, 455250816, 9197427, 6436032, 59903792, 6606394, 0514808, 356891229, 09501136, 7814187, 6997009, 0753488, 9149162 ####[facility] [address] [place] [address] RBC (Bld) [#/Vol] 4.0 E12/L Low 4.3-5.9 [facility] Comment on above: Performed By: #### 2 601716, 01407956, 3212414, 7703628, 22324089, 73603758, 939948675, 8799134, 3849048, 38088030, 2965051, 0717409, 712664200, 45282015, 8732042, 1107128, 9023104, 2078905 ####[facility] [address] [place] [address] WBC corrected for nucl RBC Auto (Bld) [#/Vol] 10.1 E9/L Normal 4.0-11.0 [facility] Comment on above: Performed By: #### 2 086333, 26046019, 4415826, 0958809, 06621822, 56191740, 278043757, 6765960, 0471984, 46883624, 7600698, 9738827, 659092884, 65142660, 6194585, 8857314, 6361604, 2597731 ####[facility] [address] [place] [address] CHEMISTRYOrdered By: SYSTEM SYSTEM on 03-19-2023 25-hydroxyvitamin [...] (Bld) [Mass fraction] 5.8 % Normal <=5.9% [facility] ChemAutoSS CMPon 03-19-2023 Albumin [Mass/Vol] 4.0 g/dL Normal 3.3-5.0 [facility] Comment on above: Performed By: #### 2 369834, 08176016, 3909530, 6141494, 88416734, 27430568, 630605307, 1039744, 6366732, 39643950, 3934478, 3160165, 865962237, 51660651, 7003885, 6784145, 2052069, 0729820 ####[facility] [address] [place] [address] Albumin/Globulin (S) [Mass conc ratio] 1.2 Normal 1.1-2.2 [facility] Comment on above: Performed By: #### 2 220794, 11144308, 9391359, 3420988, 29530656, 81064128, 465948875, 3267931, 6633495, 87428322, 1669153, 5596768, 027752790, 51858559, 0329190, 0565992, 0309449, 1712765 ####[facility] [address] [place] [address] ALP [Catalytic activity/Vol] 61 Int._Unit/L Normal 21-98 [facility] Comment on above: Performed By: #### 2 561873, 54746777, 1335075, 1368207, 75421465, 70998996, 578872880, 8969347, 9600594, 75685171, 7477042, 0202289, 653494672, 05515008, 5292897, 4091090, 7282289, 1468461 ####[address] [place] [address] ALT No additional P-5'-P [Catalytic activity/Vol] 17 Int._Unit/L Normal 6-46 [facility] Comment on above: Performed By: #### 2 210878, 62074091, 0753457, 6720712, 45397674, 13712317, 013103039, 4962368, 5182162, 63593554, 7572824, 6074769, 995896772, 09073826, 6391436, 3130242, 9187861, 3723215 ####[address] [place] [address] Anion gap [Moles/Vol] 9 mmol/L Normal 6-16 [facility] Comment on above: Performed By: #### 2 690120, 01036257, 5303158, 3160879, 74085848, 39512109, 474768520, 4772368, 4648503, 25564480, 7293093, 7343779, 004801094, 50259076, 7379687, 3207319, 7691676, 5886347 ####[facility] [address] [place] [address] AST [Catalytic activity/Vol] 20 Int._Unit/L Normal 5-43 [facility] Comment on above: Performed By: #### 2 959737, 70636260, 7757840, 8051484, 13158946, 44069155, 728779238, 9295546, 9959855, 69512742, 1254939, 1624470, 514532017, 43739757, 7579261, 4701026, 2342452, 0716221 ####[facility] [address] [place] [address] Bilirubin [Mass/Vol] 0.4 mg/dL Normal 0.0-1.1 [facility] Comment on above: Performed By: #### 2 306135, 59954051, 1935614, 0568768, 57565989, 99277973, 930168806, 6338160, 5062484, 68771128, 4873971, 1818391, 823527622, 45851571, 6545413, 1993487, 7469340, 8176076 ####[address] [place] [address] Calcium [Mass/Vol] 9.2 mg/dL Normal 8.9-11.1 [facility] Comment on above: Performed By: #### 2 144949, 62110037, 3310652, 0749366, 34206960, 59090924, 234753553, 1472091, 6038581, 81207843, 0860313, 0200977, 643971882, 39178899, 8377871, 5288900, 7371184, 8433118 ####[facility] [address] [place] [address] Chloride [Moles/Vol] 113 mmol/L High 101-111 [facility] Comment on above: Performed By: #### 2 882615, 29359500, 8974086, 1490129, 01349312, 60364000, 783256444, 4740936, 0505484, 21700549, 5113075, 2794824, 199008769, 66142160, 5711255, 1616899, 2983335, 1915900 ####[facility] [address] [place] [address] CO2 [Moles/Vol] 22 mmol/L Normal 21-31 [facility] Comment on above: Performed By: #### 2 790334, 93713975, 2252996, 2107457, 42001913, 24598779, 423891149, 9420542, 8936083, 93575449, 8241039, 8762000, 470367544, 23261451, 5049833, 1104297, 2010865, 9840536 ####[facility] [address] [place] [address] Creatinine [Mass/Vol] 0.7 mg/dL Normal 0.5-1.3 [facility] Comment on above: Performed By: #### 2 177738, 09083626, 0113247, 0202632, 73319137, 78464138, 475864128, 4407236, 5674866, 52076338, 6997750, 5350411, 359817485, 02921001, 0897092, 0243506, 3678674, 7678541 ####[facility] [address] [place] [address] Globulin (S) [Mass/Vol] 3.2 g/dL Normal 1.4-4.0 [facility] Comment on above: Performed By: #### 2 480014, 56404761, 8867648, 1275479, 50084273, 50433859, 455752448, 8591034, 1537143, 84201678, 9636349, 6339764, 384072086, 78389786, 5371828, 2535470, 6894071, 2564422 ####[address] [place] [address] Glucose [Mass/Vol] 103 mg/dL Normal 55-199 [facility] Comment on above: Result Comment: If t his glucose result represents a fasting glucose, interpretation should refer to the following reference range: 55-99 mg/dL Performed By: #### 2 932966, 19710742, 2790264, 5984338, 37405420, 74126646, 331280710, 6988786, 8043733, 43418606, 1143257, 1228691, 127116959, 00748650, 0899420, 2657838, 6700091, 0973840 ####[facility] [address] [place] [address] Potassium [Moles/Vol] 3.8 mmol/L Normal 3.5-5.3 [facility] Comment on above: Performed By: #### 2 162654, 57951043, 0210852, 8972280, 07957427, 74517734, 841649343, 4212551, 8525999, 51674084, 1824914, 2439987, 114465453, 22824380, 7780785, 0385098, 7744996, 4433526 ####[facility] [address] [place] [address] Protein [Mass/Vol] 7.2 g/dL Normal 6.0-7.8 [facility] Comment on above: Performed By: #### 2 199188, 81372262, 6409797, 8072263, 32660520, 72643734, 368791269, 3420200, 0411052, 31320270, 4744068, 1147736, 734348211, 21052874, 2470321, 8953202, 2917386, 9284033 ####[facility] [address] [place] [address] Sodium [Moles/Vol] 140 mmol/L Normal 135-145 [facility] Comment on above: Performed By: #### 2 725601, 38418976, 5439917, 2650435, 23775909, 12266809, 738155687, 4927591, 7270907, 81986883, 9734329, 2077168, 583709410, 53655539, 7220280, 8911192, 7795752, 4259025 ####[facility] [address] [place] [address] Urea nitrogen [Mass/Vol] 12 mg/dL Normal 5-21 [facility] Comment on above: Performed By: #### 2 974218, 34710494, 1643852, 9264867, 31696895, 01164101, 944973227, 9889696, 2556268, 64407153, 3098933, 5808206, 832662970, 03803602, 2840211, 0906650, 1816910, 3494607 ####[facility] [address] [place] [address] Urea nitrogen/Creatinine [Mass ratio] 17 No Units Normal 10-20 [facility] Comment on above: Performed By: #### 2 141515, 74108461, 0019056, 7136067, 96972603, 34273703, 753664889, 3644721, 2835450, 60705768, 8411739, 5470698, 969271642, 94337258, 6347195, 1690803, 0298123, 0087356 ####[facility] [address] [place] [address] Consent for Treatmenton 07-0 Consent for Treatment [id number]: 127 Normal [facility] Ferritinon - Ferritin [Mass/Vol] 6 ng/mL Low 11-307 [facility] Comment on above: Result Comment: NORM ALS MEN <30 YRS 16-132 ng/mL MEN >30 YRS 8-338 ng/mL WOMEN (PREMEN) 6-104 ng/mL WOMEN (POSTMEN) 12-210 ng/mL Performed By: #### 2 081203, 79989007, 4471904, 5284779, 22453671, 00731262, 122270131, 3234894, 3424101, 80201314, 6242335, 0537430, 718111683, 07995584, 5751771, 0842111, 3569665, 4062083 ####[facility] [address] [place] [address] Folateon 03-19-2023 Folate [Mass/Vol] 15.6 ng/mL Normal >=6.7 [facility] Comment on above: Performed By: #### 2 257351, 22886233, 3562853, 9038773, 30017829, 83446344, 434512419, 3271959, 9891719, 23886532, 7013872, 8184399, 477022321, 17437879, 3141846, 6485826, 1969662, 7751901 ####[address] [address] Free T4on 03-19-2023 Free T4 [Mass/Vol] 0.88 ng/dL Normal 0.58-1.64 [facility] Comment on above: Performed By: #### 2 342368, 38521127, 4339070, 5019500, 83058588, 06283390, 966093505, 0170386, 5285266, 01524467, 3071691, 1096980, 424711405, 96732703, 7846880, 3055293, 0140332, 8240745 ####[address] [address] HEMATOLOGYOrdered By: SYSTEM SYSTEM on 03-19-2023 Basophils/100 [...] Normal 4.0 - 11.0 E9/L [facility] HemeAutoSS AsvM8irs 03-19-2023 HbA1c (Bld) [Mass fraction] 5.8 % Normal <=5.9 [facility] Comment on above: Performed By: #### 2 126535, 21366978, 6050350, 3467349, 00459860, 83177057, 606398787, 8650698, 3654644, 28585179, 4344040, 6729038, 808695070, 54249296, 9130676, 9681228, 9549960, 8858418 ####[facility] [address] [place] [address] Ironon 03-19-2023 Iron [Mass/Vol] 69 microgram/dL Normal 35-153 [facility] Comment on above: Performed By: #### 2 277077, 46755685, 0955144, 0256645, 74714284, 33289299, 231824284, 4938057, 8820099, 64001728, 7445879, 9527860, 418125634, 48884466, 5089870, 8253385, 1056380, 0538499 ####[facility] [address] [place] [address] Lipid Panelon 03-19-2023 Cholesterol [Mass/Vol] 167 mg/dL Normal 120-200 [facility] Comment on above: Performed By: #### 2 045739, 35285902, 1686998, 1414776, 53350223, 50010173, 365450172, 5262944, 9820380, 17280034, 2847653, 3016504, 684444018, 00699447, 2445942, 1680973, 6205625, 7235770 ####[facility] [address] [place] [address] Cholesterol in HDL [Mass/Vol] 72 mg/dL Invalid Interpretation Code [facility] Comment on above: Result Comment: HDL > or equal to 60 mg/dL: Low cardiovascular risk HDL < 40 mg/dL : High cardiovascular risk Performed By: #### 2 252233, 80933695, 4144009, 2919524, 52746295, 34796651, 559331516, 1595554, 4519512, 52559845, 8256929, 2215554, 671724216, 15050075, 0887147, 2891109, 4281614, 1847047 ####[facility] [address] [place] [address] Cholesterol in LDL [Mass/Vol] 72 mg/dL Normal <=129 [facility] Comment on above: Performed By: #### 2 505637, 27165337, 8614379, 8128426, 46762023, 02352055, 452032153, 7215558, 4923861, 15552235, 3266869, 1300383, 197880732, 28152289, 0428979, 2147027, 1528446, 8027734 ####[address] [place] [address] Cholesterol in VLDL [Mass/Vol] 14 mg/dL Normal 7-40 [facility] Comment on above: Performed By: #### 2 138339, 53626505, 7525601, 6547746, 59963094, 91201422, 504395175, 6680227, 5302224, 93924824, 1790417, 7163754, 044785213, 01463050, 5010782, 9724127, 2005904, 8513956 ####[facility] [address] [place] [address] Triglyceride [Mass/Vol] 69 mg/dL Normal <=149 [facility] Comment on above: Performed By: #### 2 702132, 51549277, 1906881, 2733276, 70685167, 58510257, 937470416, 1053007, 4387589, 96011197, 9630171, 4553878, 196620911, 91929733, 2277789, 2153596, 4153249, 3062178 ####[facility] [address] [place] [address] Magnesiumon 03-19-2023 Magnesium [Mass/Vol] 2.0 mg/dL Normal 1.3-2.4 [facility] Comment on above: Performed By: #### 2 377717, 74350991, 6708994, 8033112, 81309255, 40442457, 945008773, 6484075, 5640184, 61591863, 3850592, 6385899, 051965847, 30492488, 5730033, 5644471, 4414631, 5306174 ####[facility] [address] [place] [address] Physician Orderon 03-19-2023 Physician Order [id number] :127 Normal [facility] TIBC Calculatedon 03-19-2023 Iron binding capacity [Mass/Vol] 423 microgram/dL High 250-400 [facility] Comment on above: Performed By: #### 2 389365, 19821023, 4147654, 4275122, 79245302, 37388825, 392244862, 3267077, 9694193, 05408869, 9425037, 0410025, 612843918, 57908150, 4074346, 4243518, 2004220, 6365955 ####[facility] [address] [place] [address] Transferrin [Mass/Vol] 302 mg/dL Normal 200-370 [facility] Comment on above: Performed By: #### 2 993840, 91103288, 8695642, 5834781, 18709289, 04442601, 039373759, 1797099, 0355772, 35875585, 5534031, 5461940, 232087845, 84369540, 1724510, 5986827, 0728099, 3079239 ####[facility] [address] [place] [address] TSHon 03-19-2023 TSH Qn 0.61 m[IU]/L Normal 0.34-5.60 [facility] Comment on above: Performed By: #### 2 701789, 59517139, 1752816, 3324481, 50651734, 35640785, 303733813, 5540581, 2399056, 37624314, 4488361, 3239033, 431601570, 69188225, 9432342, 2706806, 3737016, 6871718 ####[facility] [address] [place] [address] Vit B12on 03-19-2023 Cobalamin (Vitamin B12) [Mass/Vol] 357 pg/mL Normal 50-1500 [facility] Comment on above: Performed By: #### 2 742155, 79904905, 6277578, 7157455, 53152635, 86774382, 182780065, 5670289, 3641792, 41339118, 9726488, 7732370, 880833462, 95508534, 7799346, 2371804, 5374498, 8307708 ####[facility] [address] [place] [address] Vitamin D 25 Hydroxyon 03-19 25-hydroxyvitamin D3 [Mass/Vol] 43.1 ng/mL Normal 30.0-100.0 [facility] Comment on above: Result Comment: Vit alberto D deficiency has been defined as a level of serum 25-OH vitamin D less than 20 ng/mL (1,2) by the [place] of [employer] and an Endocrine Society practice guideline. The Endocrine Society further defined vitamin D insufficiency as a level between 21 and 29 ng/mL (2). 1. IOM ([place] of [employer]). 2010. Dietary reference intakes for calcium and D. [place]: The National Academies Press. 2. Willard MF, Luisa NC, Nestor KAUR, et al. Evaluation, treatment, and prevention of vitamin D deficiency: an Endocrine Society clinical practice guideline. JCEM. 2010; 96 (7):1911-30. Performed By: #### 2 802160, 17163134, 7736147, 9069443, 75673925, 71478688, 523682749, 6675222, 8505612, 69005597, 5435814, 1371235, 126871854, 60475557, 5082883, 0549389, 0287069, 9379096 ####[facility] [address] [place] [address] eGFRon 03-19-2023 GFR/1.73 sq M.predicted among non-blacks MDRD (S/P/Bld) [Vol rate/Area] 116 mL/min/1.73 m2 Normal >=59 [facility] Comment on above: Order Comment: Order added by Discern Expert. Result Comment: Manual Writer gurpreet kidney disease could be indicated at eGFR's of less than 60 mL/min/1.73m2. Kidney failure is indicated at less than 15 mL/min/1.73m2. Performed By: #### 2 013599, 88723220, 7600702, 4796724, 21971520, 69324928, 481358506, 2084357, 5755683, 48355994, 0645562, 7815097, 800704937, 54365060, 0731574, 3149897, 0873709, 0625008 ####[facility] [address] [place] [address] CHEMISTRYOrdered By: SYSTEM SYSTEM on 01-15-2023 Albumin [...] 99 mL/min/1.73 m2 Normal >=59mL/min/1 .73 m2 [facility] Chem S Globulin (S) [...] hCG Ql Negative (01/15/23 11:31 AM) Normal [facility] Man Sero URINALYSISOrdered By: Destin santana on [...] PM) Normal Negative [facility] UA Auto SS [place].plasma/Lithiu m.RBC (Bld) [Mass ratio] 0-3 /HPF Normal [...] [facility] UA Auto SS Urobilinogen Qn (U) 0.6117021 {Lucila'U}/dL Normal 0.0 - 1.0 EU/dL [facility] UA Auto SS WBC Auto Ql (U) 1+ *ABN* (01/15/23 12:51 PM) Invalid Interpretation Code Negative [facility] UA Auto SS WBC LM.HPF (Urine sed) [#/Area] 0-5 /HPF Normal 0-5/HPF [facility] UA Auto SS BLOOD BANKOrdered By: Myrna Contreras on 12-05-2022 ABO/Rh Interp Negative Invalid Interpretation Code [facility] BB Subsection ABSC Gel Interp Negative (12/05/22 7:24 AM) Normal [facility] BB Subsection URINALYSISOrdered By: [...] AM) Normal Negative [facility] UA Auto SS [place].plasma/Lithiu m.RBC (Bld) [Mass ratio] 0-3 /HPF Normal 0-3/HPF [facility] UA Auto SS Nitrite Ql (U) Negative (12/05/22 10:05 AM) Normal Negative [facility] UA Auto SS pH (U) 6.5 *NA* (12/05/22 10:05 AM) Invalid Interpretation Code 5.0 - 9.0 [facility] UA Auto SS Protein (U) [Mass/Vol] Negative (12/05/22 10:05 AM) Normal Negative [facility] UA Auto SS Specific gravity (U) [Rel density] 1.015 *NA* (12/05/22 10:05 AM) Invalid Interpretation Code 1.005 - 1.030 [facility] UA Auto SS UA Spec Desc Catheter (12/05/22 10:05 AM) Normal [facility] UA Auto SS Urobilinogen Qn (U) 1.1841596 {Lucila'U}/dL Normal 0.0 - 1.0 EU/dL [facility]A Auto SS WBC Auto Ql (U) Negative (12/05/22 10:05 AM) Normal Negative [facility] UA Auto SS WBC LM.HPF (Urine sed) [#/Area] 0-5 /HPF Normal 0-5/HPF [facility] UA Auto SS CHEMISTRYOrdered [...] rate/Area] mL/min/1.73 m2 Normal >=59mL/min/1 .73 m2 [facility] Chem S Potassium [Moles/Vol] 3.6 mmol/L Normal [...] Office Visit ([facility] ) -------- SHAZIA CHOU ([id number]) 1990 F Date Time Provider Department 11/20/22 8:00 AM KIM, EILEEN THOMPSONADFV During your visit today, we recorded the following information about you: Pulse Blood pressure Weight Height 67/minute 137/81 85.7 kg 1.702 m Last Period 10/23/22 Eileen Manzano MD 11/20/2022 10:33 AM Signed [facility] New Patient [...] due to congenital deformity, 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 She has never seen an director of officiating. CSF protein 24, Glu 55, Pro 28, [...] due to congenital deformity, seen in the [facility] for: 1. [...] she agreed. She needs to follow with director of officiating every 6 months. In some patients with intracranial hypertension, there might be a concurrent transverse sinus stenosis and transverse sinus stenting may resolve the symptoms. I will do MRV. --HTN --H depression --Headache: there are a (more content not included)... Normal [facility] CBC AUTO DIFFon 10-30-2022 BASO # 0.0 103/ul Normal 0.0-0.1 [facility] Comment on above: Performed By: #### C JENNIE PATRICK LIPA #### [facility] [address] [place] [address] Dr. Manuel Sandhu Basophils/100 WBC (Bld) 0.5 % Normal 0.2-2.0 [facility] Comment on above: Performed By: #### C JENNIE PATRICK LIPA #### [facility] [address] [place] [address] Dr. Manuel Sandhu EO # 0.1 103/ul Normal 0.0-0.7 [facility] Comment on above: Performed By: #### C JENNIE PATRICK LIPA #### [facility] [address] [place] [address] Dr. Manuel Sandhu Eosinophils/100 WBC (Bld) 1.6 % Normal 0.9-7.0 [facility] Comment on above: Performed By: #### C JENNIE PATRICK LIPA #### [facility] [address] [place] [address] Dr. Manuel Sandhu Erythrocyte distribution width (RBC) [Ratio] 13.8 % Normal 11.0-15.0 [facility] Comment on above: Performed By: #### C JENNIE PATRICK LIPA #### [facility] [address] [place] [address] Dr. Manuel Sandhu Hematocrit (Bld) [Volume fraction] 38.7 % Normal 36.0-48.0 [facility] Comment on above: Performed By: #### C JENNIE PATRICK LIPA #### [facility] [address] [place] [address] Dr. Manuel Sandhu Hemoglobin (Bld) [Mass/Vol] 12.9 g/dL Normal 12.0-16.0 [facility] Comment on above: Performed By: #### C JENNIE PATRICK LIPA #### [facility] [address] [address] [address] Manuel Sandhu IG # 0.03 10e3/ul Normal 0.00-0.03 [facility] Comment on above: Performed By: #### C MP, JENNIE, LIPA #### [facility] [address] [address] [address] Manuel Sandhu IG % 0.4 % Normal 0.0-0.5 [facility] Comment on above: Performed By: #### C MP, JENNIE, LIPA #### [facility] [address] [place] [address] Dr. Manuel Sandhu LYMPH # 2.1 103/ul Normal 1.2-3.8 [facility] Comment on above: Performed By: #### C MP, JENNIE, LIPA #### [facility] [address] [place] [address] Dr. Manuel Sandhu Lymphocytes/100 WBC (Bld) 25.1 % Normal 20.5-60.0 [facility] Comment on above: Performed By: #### C MP, JENNIE, LIPA #### [facility] [address] [place] [address] Dr. Manuel Sandhu MANUAL DIFF REQ NO Normal [facility] Comment on above: Performed By: #### C MP, JENNIE, LIPA #### [facility] [address] [place] [address] Dr. Manuel Sandhu MCH (RBC) [Entitic mass] 32.0 pg Normal 26.7-34.0 [facility] Comment on above: Performed By: #### C MP, JENNIE, LIPA #### [facility] [address] [place] [address] Dr. Manuel Sandhu MCHC (RBC) [Mass/Vol] 33.3 g/dL Normal 29.9-35.2 [facility] Comment on above: Performed By: #### C MP, JENNIE, LIPA #### [facility] [address] [place] [address] Dr. Manuel Sandhu MCV (RBC) [Entitic vol] 96.0 fL Normal 81.0-99.0 [facility] Comment on above: Performed By: #### C JENNIE PATRICK LIPA #### [facility] [address] [place] [address] Dr. Manuel Sandhu MONO # 0.5 103/ul Normal 0.3-0.8 [facility] Comment on above: Performed By: #### C JENNIE PATRICK LIPA #### [facility] [address] [place] [address] Dr. Manuel Sandhu Monocytes/100 WBC (Bld) 5.7 % Normal 1.7-12.0 [facility] Comment on above: Performed By: #### C JENNIE PATRICK LIPA #### [facility] [address] [place] [address] Dr. Manuel Sandhu NEUT # 5.6 103/ul Normal 1.4-6.5 [facility] Comment on above: Performed By: #### C JENNIE PATRICK LIPA #### [facility] [address] [place] [address] Dr. Manuel Sandhu Neutrophils/100 WBC (Bld) 66.7 % Normal 43.0-75.0 [facility] Comment on above: Performed By: #### C JENNIE PATRICK LIPA #### [facility] [address] [place] [address] Dr. Manuel Sandhu Platelet mean volume (Bld) [Entitic vol] 10.9 fL Normal 9.5-13.5 [facility] Comment on above: Performed By: #### C JENNIE PATRICK LIPA #### [facility] [address] [place] [address] Dr. Manuel Sandhu PLT 310 103/ul Normal 150-450 [facility] Comment on above: Performed By: #### C JENNIE PATRICK LIPA #### [facility] [address] [place] [address] Dr. Manuel Sandhu RBC 4.03 106/ul Critically low 4.20-5.40 [facility] Comment on above: Performed By: #### C JENNIE PATRICK LIPA #### [facility] [address] [place] [address] Dr. Manuel Sandhu WBC 8.4 103/ul Normal 4.0-11.0 [facility] Comment on above: Performed By: #### C MP, JENNIE, LIPA #### [facility] [address] [place] [address] Dr. Manuel DUBON URINE PROFILEon 3 Bilirubin Ql (U) Negative Normal NEGATIVE [facility] Comment on above: Performed By: #### U MICRO, ERUR #### [facility] [address] [place] [address] Dr. Manuel Sandhu Clarity (U) CLEAR Normal CLEAR [facility] Comment on above: Performed By: #### U MICRO, ERUR #### [facility] [address] [place] [address] Dr. Manuel Sandhu Color (U) LT. YELLOW Normal YELLOW [facility] Comment on above: Performed By: #### U MICRO, ERUR #### [facility] [address] [place] [address] Dr. Manuel Sandhu ERUAHD A micrscopic examina tion will be performed if indicated. Normal [facility] Comment on above: Performed By: #### U MICRO, ERUR #### [facility] [address] [place] [address] Dr. Manuel Sandhu Glucose Ql (U) Negative Normal NEGATIVE [facility] Comment on above: Performed By: #### U MICRO, ERUR #### [facility] [address] [place] [address] Dr. Manuel Sandhu Hemoglobin Ql (U) LARGE Abnormal NEGATIVE [facility] Comment on above: Performed By: #### U MICRO, ERUR #### [facility] [address] [place] [address] Dr. Manuel Sandhu Ketones Ql (U) Negative Normal NEGATIVE [facility] Comment on above: Performed By: #### U MICRO, ERUR #### [facility] [address] [place] [address] Dr. Manuel Sandhu LEUKOCYTES TRACE Abnormal NEGATIVE [facility] Comment on above: Performed By: #### U MICRO, ERUR #### [facility] [address] [place] [address] Dr. Manuel Sandhu Nitrite Ql (U) Negative Normal NEGATIVE [facility] Comment on above: Performed By: #### U MICRO, ERUR #### [facility] [address] [place] [address] Dr. Manuel Sandhu pH (U) 6.5 [pH] Normal 5-9 [facility] Comment on above: Performed By: #### U MICRO, ERUR #### [facility] [address] [place] [address] Dr. Manuel Sandhu SPEC GRAVITY <=1.005 Abnormal 1.005-<=1.02 5 [facility] Comment on above: Performed By: #### U MICRO, ERUR #### [facility] [address] [place] [address] Dr. Manuel Sandhu UA PROTEIN Negative Normal NEGATIVE/ TRACE [facility] Comment on above: Performed By: #### U MICRO, ERUR #### [facility] [address] [place] [address] Dr. Manuel Sandhu UR MICRO IND INDICATED Normal [facility] Comment on above: Performed By: #### U MICRO, ERUR #### [facility] [address] [place] [address] Dr. Manuel Sandhu Urobilinogen Qn (U) 0.2 {Lucila'U}/dL Normal 0.2 - 1. 0 [facility] Comment on above: Performed By: #### U MICRO, ERUR #### [facility] [address] [place] [address] Dr. Manuel Sandhu PROF CHEM 8 (BAS METB)on Anion gap [Moles/Vol] 11.7 mmol/L Normal Th [facility] Comment on above: Performed By: #### C JENNIE PATRICK LIPA #### [facility] [address] [place] [address] Dr. Manuel Sandhu Calcium [Mass/Vol] 9.1 mg/dL Normal 8.5-10.1 [facility] Comment on above: Performed By: #### C JENNIE PATRICK, LIPA #### [facility] [address] [address] [address] Manuel Sandhu Chloride [Moles/Vol] 105 mmol/L Normal 98-107 [facility] Comment on above: Performed By: #### C MP, JENNIE, LIPA #### [facility] [address] [address] [address] Manuel Sandhu CO2 [Moles/Vol] 26.8 mmol/L Normal 21.0-32.0 [facility] Comment on above: Performed By: #### C MP, JENNIE, LIPA #### [facility] [address] [address] [address] Manuel Sandhu Creatinine [Mass/Vol] 0.62 mg/dL Normal 0.55-1.02 [facility] Comment on above: Performed By: #### C MP, JENNIE, LIPA #### [facility] [address] [address] [address] Manuel Sandhu EGFR-AF LUXEMBOURGER >60 Normal >=60 [facility] Comment on above: Performed By: #### C MP, JENNIE, LIPA #### [facility] [address] [address] [address] Manuel Sandhu EGFR-NON AF LUXEMBOURGER >60 Normal >=60 [facility] Comment on above: Performed By: #### C MP, JENNIE, LIPA #### [facility] [address] [address] [address] Manuel Sandhu Glucose [Mass/Vol] 92 mg/dL Normal 74-106 [facility] Comment on above: Performed By: #### C MP, JENNIE, LIPA #### [facility] [address] [address] [address] Manuel Sandhu Potassium [Moles/Vol] 3.5 mmol/L Normal 3.5-5.1 [facility] Comment on above: Performed By: #### C MP, JENNIE, LIPA #### [facility] [address] [address] [address] Manuel Sandhu Sodium [Moles/Vol] 140 mmol/L Normal 136-145 [facility] Comment on above: Performed By: #### C MP, JENNIE, LIPA #### [facility] [address] [address] [address] Manuel Sandhu Urea nitrogen [Mass/Vol] 8.0 mg/dL Normal 7.0-18.0 [facility] Comment on above: Performed By: #### C MP, JENNIE, LIPA #### [facility] [address] [address] [address] Manuel Sandhu Urea nitrogen/Creatinine [Mass ratio] 12.9 mg/mg Normal [facility] Comment on above: Performed By: #### C MP, JENNIE, LIPA #### [facility] [address] [place] [address] Dr. Manuel Sandhu URINE MICROSCOPIC ONLYon BACTERIA NONE SEEN Normal NONE SEEN [facility] Comment on above: Performed By: #### U MICRO, ERUR #### [facility] [address] [place] [address] Dr. Manuel Sandhu Bacteria identified Cx Nom (U) NOT INDICATED Normal [facility] Comment on above: Performed By: #### U MICRO, ERUR #### [facility] [address] [place] [address] Dr. Manuel Sandhu CAST NONE SEEN Normal NONE SEEN [facility] Comment on above: Performed By: #### U MICRO, ERUR #### [facility] [address] [place] [address] Dr. Manuel Sandhu Crystals LM Nom (Urine sed) NONE SEEN Normal NONE SEEN [facility] Comment on above: Performed By: #### U MICRO, ERUR #### [facility] [address] [address] [address] Manuel Sandhu Epithelial cells LM Ql (Urine sed) FEW Abnormal NONE SEEN /RARE [facility] Comment on above: Performed By: #### U MICRO, ERUR #### [facility] [address] [address] [address] Manuel Sandhu MUCOUS TRACE Abnormal NONE SEEN [facility] Comment on above: Performed By: #### U MICRO, ERUR #### [facility] [address] [place] [address] Dr. Manuel Sandhu RBC 5-10 Abnormal 0-2 [facility] Comment on above: Performed By: #### U MICRO, ERUR #### [facility] [address] [place] [address] Dr. Manuel Sandhu WBC 2-5 Abnormal NONE SEEN [facility] Comment on above: Performed By: #### U MICRO, ERUR #### [facility] [address] [place] [address] Dr. Manuel Sandhu No Panel InformationOrdered By: Dorita Niño on 08-19-2022 CSF Glucose 55 mg/dL 40-70 [facility] CSF Total Protein 24 mg/dL 15-45 [facility] CBC AUTO DIFFon 08-16-2022 BASO # 0.1 103/ul Normal 0.0-0.1 [facility] Comment on above: Performed By: #### U MICRO, ERUR #### [facility] [address] [place] [address] Dr. Manuel Sandhu Basophils/100 WBC (Bld) 0.4 % Normal 0.2-2.0 [facility] Comment on above: Performed By: #### U MICRO, ERUR #### [facility] [address] [place] [address] Dr. Manuel Sandhu EO # 0.2 103/ul Normal 0.0-0.7 [facility] Comment on above: Performed By: #### U MICRO, ERUR #### [facility] [address] [place] [address] Dr. Manuel Sandhu Eosinophils/100 WBC (Bld) 1.8 % Normal 0.9-7.0 [facility] Comment on above: Performed By: #### U MICRO, ERUR #### [facility] [address] [place] [address] Dr. Manuel Sandhu Erythrocyte distribution width (RBC) [Ratio] 13.6 % Normal 11.0-15.0 [facility] Comment on above: Performed By: #### U MICRO, ERUR #### [facility] [address] [place] [address] Dr. Manuel Sandhu Hematocrit (Bld) [Volume fraction] 35.8 % Critically low 36.0-48.0 [facility] Comment on above: Performed By: #### U MICRO, ERUR #### [facility] [address] [place] [address] Dr. Manuel Sandhu Hemoglobin (Bld) [Mass/Vol] 12.2 g/dL Normal 12.0-16.0 [facility] Comment on above: Performed By: #### U MICRO, ERUR #### [facility] [address] [place] [address] Dr. Manuel Sandhu IG # 0.05 10e3/ul Critically high 0.00-0.03 [facility] Comment on above: Performed By: #### U MICRO, ERUR #### [facility] [address] [place] [address] Dr. Manuel Sandhu IG % 0.4 % Normal 0.0-0.5 [facility] Comment on above: Performed By: #### U MICRO, ERUR #### [facility] [address] [place] [address] Dr. Manuel Sandhu LYMPH # 2.0 103/ul Normal 1.2-3.8 [facility] Comment on above: Performed By: #### U MICRO, ERUR #### [facility] [address] [place] [address] Dr. Manuel Sandhu Lymphocytes/100 WBC (Bld) 18.1 % Critically low 20.5-60.0 [facility] Comment on above: Performed By: #### U MICRO, ERUR #### [facility] [address] [place] [address] Dr. Manuel Sandhu MANUAL DIFF REQ NO Normal [facility] Comment on above: Performed By: #### U MICRO, ERUR #### [facility] [address] [place] [address] Dr. Manuel Sandhu MCH (RBC) [Entitic mass] 32.0 pg Normal 26.7-34.0 [facility] Comment on above: Performed By: #### U MICRO, ERUR #### [facility] [address] [address] [address] Manuel Sandhu MCHC (RBC) [Mass/Vol] 34.1 g/dL Normal 29.9-35.2 [facility] Comment on above: Performed By: #### U MICRO, ERUR #### [facility] [address] [address] [address] Manuel Sandhu MCV (RBC) [Entitic vol] 94.0 fL Normal 81.0-99.0 [facility] Comment on above: Performed By: #### U MICRO, ERUR #### [facility] [address] [address] [address] Manuel Sandhu MONO # 0.7 103/ul Normal 0.3-0.8 [facility] Comment on above: Performed By: #### U MICRO, ERUR #### [facility] [address] [place] [address] Dr. Manuel Sandhu Monocytes/100 WBC (Bld) 5.8 % Normal 1.7-12.0 [facility] Comment on above: Performed By: #### U MICRO, ERUR #### [facility] [address] [address] [address] Manuel Sandhu NEUT # 8.2 103/ul Critically high 1.4-6.5 [facility] Comment on above: Performed By: #### U MICRO, ERUR #### [facility] [address] [place] [address] Dr. Manuel Sandhu Neutrophils/100 WBC (Bld) 73.5 % Normal 43.0-75.0 [facility] Comment on above: Performed By: #### U MICRO, ERUR #### [facility] [address] [address] [address] Manuel Sandhu Platelet mean volume (Bld) [Entitic vol] 11.3 fL Normal 9.5-13.5 [facility] Comment on above: Performed By: #### U MICRO, ERUR #### [facility] [address] [address] [address] Manuel Sandhu PLT 284 103/ul Normal 150-450 [facility] Comment on above: Performed By: #### U MICRO, ERUR #### [facility] [address] [address] [address] Manuel Sandhu RBC 3.81 106/ul Critically low 4.20-5.40 [facility] Comment on above: Performed By: #### U MICRO, ERUR #### [facility] [address] [address] [address] Manuel Sandhu WBC 11.2 103/ul Critically high 4.0-11.0 [facility] Comment on above: Performed By: #### U MICRO, ERUR #### [facility] [address] [address] [address] Manuel Sandhu D-DIMERon 08-16-2022 D-DIMER 0.34 mg/L FEU Normal <=0.59 [facility] Comment on above: Performed By: #### U MICRO, ERUR #### [facility] [address] [address] [address] Manuel Sandhu D-DIMER COMMENTS SEE BELOW Normal [facility] Comment on above: Result Comment: Incr [...] Performed By: #### U MICRO, ERUR #### [facility] [address] [address] [address] Manuel Sandhu PROF CHEM 8 (BAS METB)on Anion gap [Moles/Vol] 10.6 mmol/L Normal [facility] Comment on above: Performed By: #### I NFLUAB #### [facility] [address] [address] [address] Manuel Sandhu Calcium [Mass/Vol] 9.2 mg/dL Normal 8.5-10.1 [facility] Comment on above: Performed By: #### I NFLUAB #### [facility] [address] [address] [address] Manuel Sandhu Chloride [Moles/Vol] 103 mmol/L Normal 98-107 [facility] Comment on above: Performed By: #### I NFLUAB #### [facility] [address] [address] [address] Manuel Sandhu CO2 [Moles/Vol] 28.4 mmol/L Normal 21.0-32.0 [facility] Comment on above: Performed By: #### I NFLUAB #### [facility] [address] [address] [address] Manuel Sandhu Creatinine [Mass/Vol] 0.61 mg/dL Normal 0.55-1.02 [facility] Comment on above: Performed By: #### I NFLUAB #### [facility] [address] [address] [address] Manuel Sandhu EGFR-AF LUXEMBOURGER >60 Normal >=60 [facility] Comment on above: Performed By: #### I NFLUAB #### [facility] [address] [address] [address] Manuel Sandhu EGFR-NON AF LUXEMBOURGER >60 Normal >=60 [facility] Comment on above: Performed By: #### I NFLUAB #### [facility] [address] [address] [address] Manuel Sandhu Glucose [Mass/Vol] 90 mg/dL Normal 74-106 [facility] Comment on above: Performed By: #### I NFLUAB #### [facility] [address] [address] [address] Manuel Sandhu Potassium [Moles/Vol] 4.0 mmol/L Normal 3.5-5.1 [facility] Comment on above: Performed By: #### I NFLUAB #### [facility] [address] [address] [address] Manuel Sandhu Sodium [Moles/Vol] 138 mmol/L Normal 136-145 [facility] Comment on above: Performed By: #### I NFLUAB #### [facility] [address] [place], [place] [address] Dr. Manuel Sandhu Urea nitrogen [Mass/Vol] 16.0 mg/dL Normal 7.0-18.0 [facility] Comment on above: Performed By: #### I NFLUAB #### [facility] [address] [place], [place] [address] Dr. Manuel Sandhu Urea nitrogen/Creatinine [Mass ratio] 26.2 mg/mg Normal [facility] Comment on above: Performed By: #### I NFLUAB #### [facility] [address] [place], [place] [address] Dr. Manuel Sandhu XR CHEST 1 Von [...] YOLI FRANKS Date: 2022-08-16 14:16 Normal [facility] Albumin [Mass/volume] in Ser um or PlasmaOrdered By: Sangeetha Peña on 08-12-2022 Albumin [Mass/Vol] 3.2 g/dL 3.2-5.5 [facility] Basophils Auto (Bld) [#/Vol] Ordered By: Sangeetha Peña on 08-12-2022 Basophils (Bld) [#/Vol] 0.1 10*3/uL 0.0-0.2 [facility] Basophils/100 WBC Auto (Bld) Ordered By: Sangeetha Peña on 08-12-2022 Basophils/100 WBC (Bld) 0.7 % . [facility] C reactive protein [Mass/vol ume] in Serum or PlasmaOrdered By: Sangeetha Peña on 08-12-2022 CRP [Mass/Vol] 0.5 mg/dL 0.0-1.0 [facility] Creatinine and Glomerular fi ltration rate.predicted panel (S/P/Bld)Ordered By: Sangeetha Peña on 08-12-2022 Creatinine [Mass/Vol] 0.65 mg/dL 0.44-1.03 [facility] Eosinophils Auto (Bld) [#/Vo l]Ordered By: Sangeetha Peña on 08-12-2022 Eosinophils (Bld) [#/Vol] 0.4 10*3/uL 0.0-0.45 [facility] Eosinophils/100 WBC Auto (Bl d)Ordered By: Sangeetha Peña on 08-12-2022 Eosinophils/100 WBC (Bld) 5.2 % . [facility] Erythrocyte distribution wid th Auto (RBC) [Ratio]Ordered By: Sangeetha Peña on 08-12-2022 Erythrocyte distribution width (RBC) [Ratio] 14.4 % 11.9-15.3 [facility] Erythrocyte sedimentation ra te by Photometric methodOrdered By: Dorita Niño on 08-12-2022 ESR Photometric method (d) [Velocity] 3 mm/hr 0-19 [facility] Estimated glomerular filtrat ion rate (GFR) non- AmericanOrdered By: Sangeetha Peña on 08-12-2022 GFR/1.73 sq M.predicted among non-blacks MDRD (S/P/Bld) [Vol rate/Area] > 60 mL/Min [facility] Folate [Mass/volume] in Seru m or PlasmaOrdered By: Lizzeth Malave on 08-12-2022 Folate [Mass/Vol] 15.3 ng/mL >5.9 [facility] Comment on above: Folate reference ran ge: >5.9 ng/mlThe WHO technical consultation on folate and vitamin [id number] has determined that folate concentrations lessthan 4 ng/ml are considered deficient. Globulin Calc (S) [Mass/Vol] Ordered By: Sangeetha Peña on 08-12-2022 Globulin (S) [Mass/Vol] 2.4 g/dL [facility] HCG ( test) IA.rapi d Ql (U)Ordered By: Lizzeth Malave on 08-12-2022 HCG ( test) Ql (U) Negative [facility] Hematocrit Auto (Bld) [Volum e fraction]Ordered By: Sangeetha Peña on 08-12-2022 Hematocrit (Bld) [Volume fraction] 34.6 % 34.0-46.4 [facility] Hemoglobin [Mass/volume] in BloodOrdered By: Sangeetha Peña on 08-12-2022 Hemoglobin (Bld) [Mass/Vol] 11.3 g/dL 11.8-15.4 [facility] - Chemistry and C hemistry - challengeOrdered By: Lizzeth Malave on 08-12-2022 Cobalamin (Vitamin B12) [Mass/Vol] 610 pg/mL 180-914 [facility] Magnesium [Mass/Vol] 1.9 mg/dL 1.6-2.6 [facility] - Hematology and Cell countsOrdered By: Sangeetha Peña on 08-12-2022 Nucleated RBC/100 WBC (Bld) [Ratio] 0.1 % 0-0.5 [facility] Leukocytes [#/volume] in Blo od by Automated countOrdered By: Sangeetha Peña on 08-12-2022 WBC (Bld) [#/Vol] 8.3 10*3/uL 4.5-11.0 [facility] Lymphocytes Auto (Bld) [#/Vo l]Ordered By: Sangeetha Peña on 08-12-2022 Lymphocytes (Bld) [#/Vol] 2.3 10*3/uL 1.00-4.8 [facility] Lymphocytes/100 WBC Auto (Bl d)Ordered By: Sangeetha Peña on 08-12-2022 Lymphocytes/100 WBC (Bld) 27.4 % . [facility] MCH Auto (RBC) [Entitic mass ]Ordered By: Sangeetha Peña on 08-12-2022 MCH (RBC) [Entitic mass] 32.0 pg 24.7-34.3 [facility] MCHC Auto (RBC) [Mass/Vol]Or dered By: Sangeetha Peña on 08-12-2022 MCHC (RBC) [Mass/Vol] 32.8 g/dL 32.0-35.0 [facility] MCV Auto (RBC) [Entitic vol] Ordered By: Sangeetha Peña on 08-12-2022 MCV (RBC) [Entitic vol] 97.7 fL 80-100 [facility] Monocytes Auto (Bld) [#/Vol] Ordered By: Sangeetha Peña on 08-12-2022 Monocytes (Bld) [#/Vol] 0.7 10*3/uL 0.0-0.8 [facility] Monocytes/100 WBC Auto (Bld) Ordered By: Sangeetha Peña on 08-12-2022 Monocytes/100 WBC (Bld) 8.7 % . [facility] Neutrophils Auto (Bld) [#/Vo l]Ordered By: Sangeetha Peña on 08-12-2022 Neutrophils (Bld) [#/Vol] 4.8 10*3/uL 1.8-7.7 [facility] Neutrophils/100 WBC Auto (Bl d)Ordered By: Sangeetha Peña on 08-12-2022 Neutrophils/100 WBC (Bld) 58.0 % . [facility] No Panel InformationOrdered By: Sangeetha Peña on 08-12-2022 Estimated GFR () > 60 mL/Min [facility] Comment on above: GFR estimated refere nce range: According to KDOQI guidelines, <60 ml/min/1.73m2 is sufficient to diagnose a patient with chronic kidney disease. Pharmacy Creatinine Clearance (Chem 140.31 [facility] Platelet mean volume Auto (B ld) [Entitic vol]Ordered By: Sangeetha Peña on 08-12-2022 Platelet mean volume (Bld) [Entitic vol] 10.2 fL 6.3-10.7 [facility] Platelets Auto (Bld) [#/Vol] Ordered By: Sangeetha Peña on 08-12-2022 Platelets (Bld) [#/Vol] 263 10*3/uL 150-450 [facility] Protein [Mass/volume] in Ser um or PlasmaOrdered By: Sangeetha Peña on 08-12-2022 Protein [Mass/Vol] 5.6 g/dL 6.1-7.9 [facility] RBC Auto (Bld) [#/Vol]Ordere d By: Sangeetha Peña on 08-12-2022 RBC (Bld) [#/Vol] 3.54 10*6/uL 3.60-5.00 [facility] Serum or plasma alanine alberto otransferase measurement without P-5'-P (enzymatic activiOrdered By: Sangeetha Peña on 08-12-2022 ALT No additional P-5'-P [Catalytic activity/Vol] 22 U/L 10-60 [facility] Serum or plasma albumin/glob ulin mass ratioOrdered By: Sangeetha Peña on 08-12-2022 Albumin/Globulin [Mass ratio] 1.3 {ratio} [facility] Serum or plasma alkaline marquez sphatase measurement (enzymatic activity/volume)Ordered By: Sangeetha Peña on 08-12-2022 ALP [Catalytic activity/Vol] 54 U/L 32-92 [facility] Serum or plasma anion gap de terminationOrdered By: Sangeetha Peña on 08-12-2022 Anion gap [Moles/Vol] 10.6 mmol/L 6.0-15.0 [facility] Serum or plasma aspartate am inotransferase measurement (enzymatic activity/volume)Ordered By: Sangeetha Peña on 08-12-2022 AST [Catalytic activity/Vol] 20 U/L 10-42 [facility] Serum or plasma calcium audie urement (mass/volume)Ordered By: Sangeetha Peña on 08-12-2022 Calcium [Mass/Vol] 8.8 mg/dL 8.2-10.2 [facility] Serum or plasma chloride nimisha surement (moles/volume)Ordered By: Sangeetha Peña on 08-12-2022 Chloride [Moles/Vol] 105 mmol/L 95-114 [facility] Serum or plasma glucose audie urement (mass/volume)Ordered By: Sangeetha Peña on 08-12-2022 Glucose [Mass/Vol] 85 mg/dL 70-100 [facility] Comment on above: ADA recommended refe rence rangeRandom Glucose Reference Range is dependent on time and content of last meal. Glucose of more than 200 mg/dL in a nonstressed, ambulatory subject supports the diagnosis of Diabetes Mellitus. Serum or plasma potassium me asurement (moles/volume)Ordered By: Sangeetha Peña on 08-12-2022 Potassium [Moles/Vol] 4.2 mmol/L 3.5-5.1 [facility] Serum or plasma sodium measu rement (moles/volume)Ordered By: Sangeetha Peña on 08-12-2022 Sodium [Moles/Vol] 140 mmol/L 136-146 [facility] Serum or plasma total biliru bin measurement (mass/volume)Ordered By: Sangeetha Peña on 08-12-2022 Bilirubin [Mass/Vol] 0.5 mg/dL 0.3-1.2 [facility] Serum or plasma total carbon dioxide measurement (moles/volume)Ordered By: Sangeetha Peña on 08-12-2022 CO2 [Moles/Vol] 28.6 mmol/L 22.0-30.0 [facility] Serum or plasma urea nitroge n measurement (mass/volume)Ordered By: Sangeetha Peña on 08-12-2022 Urea nitrogen [Mass/Vol] 7 mg/dL 9-23 [facility] TSH DL <= 0.005 mIU/L QnOrde red By: Lizzeth Malave on 08-12-2022 TSH Qn 1.79 m[IU]/L 0.45-5.33 [facility] Troponin I.cardiac [Mass/vol ume] in Serum or Plasma by High sensitivity methodOrdered By: Lizzeth Malave on 08-12-2022 Troponin I.cardiac High sensitivity method [Mass/Vol] < 3 pg/mL 0-15 [facility] CBC AUTO DIFFon 08-11-2022 BASO # 0.1 103/ul Normal 0.0-0.1 [facility] Comment on above: Performed By: #### C JENNIE PATRICK LIPA #### [facility] [address] [address] [address] Manuel Sandhu Basophils/100 WBC (Bld) 0.5 % Normal 0.2-2.0 [facility] Comment on above: Performed By: #### C MP JENNIE, LIPA #### [facility] [address] [address] [address] Manuel Sandhu EO # 0.4 103/ul Normal 0.0-0.7 [facility] Comment on above: Performed By: #### C JENNIE PATRICK LIPA #### [facility] [address] [place] [address] Dr. Manuel Sandhu Eosinophils/100 WBC (Bld) 2.4 % Normal 0.9-7.0 [facility] Comment on above: Performed By: #### C JENNIE PATRICK LIPA #### [facility] [address] [place] [address] Dr. Manuel Sandhu Erythrocyte distribution width (RBC) [Ratio] 14.1 % Normal 11.0-15.0 [facility] Comment on above: Performed By: #### C JENNIE PATRICK LIPA #### [facility] [address] [place] [address] Dr. Manuel Sandhu Hematocrit (Bld) [Volume fraction] 39.4 % Normal 36.0-48.0 [facility] Comment on above: Performed By: #### C JENNIE PATRICK LIPA #### [facility] [address] [place] [address] Dr. Manuel Sandhu Hemoglobin (Bld) [Mass/Vol] 13.3 g/dL Normal 12.0-16.0 [facility] Comment on above: Performed By: #### C JENNIE PATRICK LIPA #### [facility] [address] [place] [address] Dr. Manuel Sandhu IG # 0.07 10e3/ul Critically high 0.00-0.03 [facility] Comment on above: Performed By: #### C JENNIE PATRICK LIPA #### [facility] [address] [place] [address] Dr. Manuel Sandhu IG % 0.5 % Normal 0.0-0.5 [facility] Comment on above: Performed By: #### C JENNIE PATRICK LIPA #### [facility] [address] [place] [address] Dr. Manuel Sandhu LYMPH # 3.6 103/ul Normal 1.2-3.8 [facility] Comment on above: Performed By: #### C MP, JENNIE, LIPA #### [facility] [address] [place] [address] Dr. Manuel Sandhu Lymphocytes/100 WBC (Bld) 23.5 % Normal 20.5-60.0 [facility] Comment on above: Performed By: #### C MP, JENNIE, LIPA #### [facility] [address] [place] [address] Dr. Manuel Sandhu MANUAL DIFF REQ NO Normal [facility] Comment on above: Performed By: #### C MP, JENNIE, LIPA #### [facility] [address] [place] [address] Dr. Manuel Sandhu MCH (RBC) [Entitic mass] 32.1 pg Normal 26.7-34.0 [facility] Comment on above: Performed By: #### C MP, JENNIE, LIPA #### [facility] [address] [place] [address] Dr. Manuel Sandhu MCHC (RBC) [Mass/Vol] 33.8 g/dL Normal 29.9-35.2 [facility] Comment on above: Performed By: #### C MP, JENNIE, LIPA #### [facility] [address] [place] [address] Dr. Manuel Sandhu MCV (RBC) [Entitic vol] 95.2 fL Normal 81.0-99.0 [facility] Comment on above: Performed By: #### C MP, JENNIE, LIPA #### [facility] [address] [place] [address] Dr. Manuel Sandhu MONO # 0.9 103/ul Critically high 0.3-0.8 [facility] Comment on above: Performed By: #### C MP, JENNIE, LIPA #### [facility] [address] [place] [address] Dr. Manuel Sandhu Monocytes/100 WBC (Bld) 5.8 % Normal 1.7-12.0 [facility] Comment on above: Performed By: #### C MP, JENNIE, LIPA #### [facility] [address] [place] [address] Dr. Manuel Sandhu NEUT # 10.3 103/ul Critically high 1.4-6.5 [facility] Comment on above: Performed By: #### C JENNIE PATRICK LIPA #### [facility] [address] [address] [address] Manuel Sandhu Neutrophils/100 WBC (Bld) 67.3 % Normal 43.0-75.0 [facility] Comment on above: Performed By: #### C JENNIE PATRICK LIPA #### [facility] [address] [address] [address] Manuel Sandhu Platelet mean volume (Bld) [Entitic vol] 11.4 fL Normal 9.5-13.5 [facility] Comment on above: Performed By: #### C JENNIE PATRICK LIPA #### [facility] [address] [address] [address] Manuel Sandhu PLT 364 103/ul Normal 150-450 [facility] Comment on above: Performed By: #### C JENNIE PATRICK LIPA #### [facility] [address] [address] [address] Manuel Sandhu RBC 4.14 106/ul Critically low 4.20-5.40 [facility] Comment on above: Performed By: #### C JENNIE PATRICK LIPA #### [facility] [address] [address] [address] Manuel Sandhu WBC 15.3 103/ul Critically high 4.0-11.0 [facility] Comment on above: Performed By: #### C JENNIE PATRICK LIPA #### [facility] [address] STROKE HEAD WOon [...] YOLI MCKEON Date: 2022-08-11 15:21 Normal [facility] ER URINE PROFILEon 2 Bilirubin Ql (U) Negative Normal NEGATIVE [facility] Comment on above: Performed By: #### U MICRO, ERUR #### [facility] [address] [place] [address] Dr. Manuel Sandhu Clarity (U) CLEAR Normal CLEAR [facility] Comment on above: Performed By: #### U MICRO, ERUR #### [facility] [address] [place] [address] Dr. Manuel Sandhu Color (U) LT. YELLOW Normal YELLOW [facility] Comment on above: Performed By: #### U MICRO, ERUR #### [facility] [address] [place] [place] [address] Dr. Manuel Sandhu ERUAHD A micrscopic examina tion will be performed if indicated. Normal [facility] Comment on above: Performed By: #### U MICRO, ERUR #### [facility] [address] [place] [address] Dr. Manuel Sandhu Glucose Ql (U) Negative Normal NEGATIVE [facility] Comment on above: Performed By: #### U MICRO, ERUR #### [facility] [address] [place] [address] Dr. Manuel Sandhu Hemoglobin Ql (U) Negative Normal NEGATIVE [facility] Comment on above: Performed By: #### U MICRO, ERUR #### [facility] [address] [place] [address] Dr. Manuel Sandhu Ketones Ql (U) Negative Normal NEGATIVE [facility] Comment on above: Performed By: #### U MICRO, ERUR #### [facility] [address] [place] [address] Dr. Manuel Sandhu LEUKOCYTES Negative Normal NEGATIVE [facility] Comment on above: Performed By: #### U MICRO, ERUR #### [facility] [address] [address] [address] Manuel Sandhu Nitrite Ql (U) Negative Normal NEGATIVE [facility] Comment on above: Performed By: #### U MICRO, ERUR #### [facility] [address] [place] [address] Dr. Manuel Sandhu pH (U) 7.0 [pH] Normal 5-9 [facility] Comment on above: Performed By: #### U MICRO, ERUR #### [facility] [address] [place] [address] Dr. Manuel Sandhu SPEC GRAVITY <=1.005 Abnormal 1.005-<=1.02 5 [facility] Comment on above: Performed By: #### U MICRO, ERUR #### [facility] [address] [place] [address] Dr. Manuel Sandhu UA PROTEIN Negative Normal NEGATIVE/ TRACE [facility] Comment on above: Performed By: #### U MICRO, ERUR #### [facility] [address] [place] [address] Dr. Manuel Sandhu UR MICRO IND NOT INDICATED Normal [facility] Comment on above: Performed By: #### U MICRO, ERUR #### [facility] [address] [place] [address] Dr. Manuel Sandhu Urobilinogen Qn (U) 0.2 {Lucila'U}/dL Normal 0.2 - 1. 0 [facility] Comment on above: Performed By: #### U MICRO, ERUR #### [facility] [address] [place] [address] Dr. Manuel Sandhu LACTATE/LACTIC ACIDon 2021 Lactate [Moles/Vol] 1.5 mmol/L Normal 0.4-1.9 [facility] Comment on above: Performed By: #### I NFLUAB #### [facility] [address] [place] [address] Dr. Manuel Sandhu LIPASEon 08-11-2022 Lipase [Catalytic activity/Vol] 84.0 U/L Normal 73.0-393.0 [facility] Comment on above: Performed By: #### C MP, JENNIE, LIPA #### [facility] [address] [place] [address] Dr. Manuel Sandhu URon 08-11-2022 , QUAL Negative Normal NEGATIVE [facility] Comment on above: Performed By: #### U MICRO, ERUR #### [facility] [address] [place] [address] Dr. Manuel Sandhu PROF 14(COMP METB)on 022 Albumin [Mass/Vol] 4.3 g/dL Normal 3.4-5.0 [facility] Comment on above: Performed By: #### C MP, JENNIE, LIPA #### [facility] [address] [place] [address] Dr. Manuel Sandhu Albumin/Globulin [Mass ratio] 1.1 {ratio} Normal [facility] Comment on above: Performed By: #### C MP, JENNIE, LIPA #### [facility] [address] [place] [address] Dr. Manuel Sandhu ALP [Catalytic activity/Vol] 87 U/L Normal 46-116 [facility] Comment on above: Performed By: #### C MP, JENNIE, LIPA #### [facility] [address] [place] [address] Dr. Manuel Sandhu ALT [Catalytic activity/Vol] 32 U/L Normal 14-59 [facility] Comment on above: Performed By: #### C MP, JENNIE, LIPA #### [facility] [address] [place] [address] Dr. Manuel Sandhu Anion gap [Moles/Vol] 12.7 mmol/L Normal [facility] Comment on above: Performed By: #### C MP, JENNIE, LIPA #### [facility] [address] [address] [address] Manuel Sandhu AST [Catalytic activity/Vol] 24 U/L Normal 15-37 [facility] Comment on above: Performed By: #### C MP, JENNIE, LIPA #### [facility] [address] [address] [address] Manuel Sandhu Bilirubin [Mass/Vol] 0.3 mg/dL Normal 0.2-1.0 [facility] Comment on above: Performed By: #### C MP, JENNIE, LIPA #### [facility] [address] [address] [address] Manuel Sandhu Calcium [Mass/Vol] 9.4 mg/dL Normal 8.5-10.1 [facility] Comment on above: Performed By: #### C MP, JENNIE, LIPA #### [facility] [address] [place] [address] Dr. Manuel Sandhu Chloride [Moles/Vol] 100 mmol/L Normal 98-107 [facility] Comment on above: Performed By: #### C MP, JENNIE, LIPA #### [facility] [address] [address] [address] Manuel Sandhu CO2 [Moles/Vol] 27.7 mmol/L Normal 21.0-32.0 [facility] Comment on above: Performed By: #### C MP, JENNIE, LIPA #### [facility] [address] [address] [address] Manuel Sandhu Creatinine [Mass/Vol] 0.71 mg/dL Normal 0.55-1.02 [facility] Comment on above: Performed By: #### C MP, JENNIE, LIPA #### [facility] [address] [address] [address] Manuel Sandhu EGFR-AF LUXEMBOURGER >60 Normal >=60 [facility] Comment on above: Performed By: #### C MP, JENNIE, LIPA #### [facility] [address] [address] [address] Manuel Sandhu EGFR-NON AF LUXEMBOURGER >60 Normal >=60 [facility] Comment on above: Performed By: #### C CELINA JENNIE, LIPA #### [facility] [address] [address] [address] Manuel Sandhu Globulin (S) [Mass/Vol] 3.9 g/dL Normal [facility] Comment on above: Performed By: #### C MP JENNIE, LIPA #### [facility] [address] [address] [address] Manuel Sandhu Glucose [Mass/Vol] 109 mg/dL Critically high 74-106 [facility] Comment on above: Performed By: #### C CELINA JENNIE, LIPA #### [facility] [address] [place] [address] Dr. Manuel Sandhu Potassium [Moles/Vol] 3.4 mmol/L Critically low 3.5-5.1 [facility] Comment on above: Performed By: #### C CELINA JENNIE, LIPA #### [facility] [address] [place] [address] Dr. Manuel Sandhu Protein [Mass/Vol] 8.2 g/dL Normal 6.4-8.2 [facility] Comment on above: Performed By: #### C CELINA JENNIE, LIPA #### [facility] [address] [place] [address] Dr. Manuel Sandhu Sodium [Moles/Vol] 137 mmol/L Normal 136-145 [facility] Comment on above: Performed By: #### C CELINA JENNIE, LIPA #### [facility] [address] [place] [address] Dr. Manuel Sandhu Urea nitrogen [Mass/Vol] 10.0 mg/dL Normal 7.0-18.0 [facility] Comment on above: Performed By: #### C CELINA JENNIE, LIPA #### [facility] [address] [place] [address] Dr. Manuel Sandhu Urea nitrogen/Creatinine [Mass ratio] 14.1 mg/mg Normal [facility] Comment on above: Performed By: #### C CELINA JENNIE, LIPA #### [facility] [address] [place] [address] Dr. Manuel Sandhu PROTIMEon 08-11-2022 INR Coag (PPP) [Relative time] 0.96 {INR} Normal [facility] Comment on above: Performed By: #### I NFLUAB #### [facility] [address] [place] [address] Dr. Manuel Sandhu INR GUIDELINES SEE BELOW Normal [facility] Comment on above: Result Comment: CHUY RED INR: 2.0 - 3.0 CONDITIONS NOT LISTED BELOW 2.5 - 3.5 FOR PROSTHETIC HEART VALVE REPLACEMENT 2.5 - 3.5 RECURRENT THROMBOSIS Performed By: #### I NFLUAB #### [facility] [address] [place] [address] Dr. Manuel Sandhu PT Coag (PPP) [Time] 10.4 s Normal 9.0-11.6 [facility] Comment on above: Performed By: #### I NFLUAB #### [facility] [address] [place] [address] Dr. Manuel Sandhu PTTon 08-11-2022 aPTT Coag (Bld) [Time] 25.3 s Normal 22.3-36.2 [facility] Comment on above: Performed By: #### I NFLUAB #### [facility] [address] [place] [address] Dr. Manuel Sandhu TROPONIN, HIGH SENSITIVITYon 08-11-2022 HSTROP 4.5 pg/mL Normal 4.0-51.3 [facility] Comment on above: Result Comment: CUT- OFF POINTS HAVE BEEN ESTABLISHED BASED ON THE FOURTH UNIVERSAL DEFINITIONS OF MYOCARDIAL INFARCTION. THE UPPER REFERENCE LIMIT (URL) OF TROPONIN, DEFINED THE 99TH PERCENTILE OF cTnI DISTRIBUTION IN A REFERENCE POPULATION, HAS BEEN CONFIRMED THE DECISION THRESHOLD FOR IA DIAGNOSIS. Performed By: #### C JENNIE PATRICK LIPA #### [facility] [address] [place] [address] Dr. Manuel Sandhu TSHon 08-11-2022 TSH 1.778 uIU/mL Normal 0.358-3.740 [facility] Comment on above: Performed By: #### C JENNIE PATRICK LIPA #### [facility] [address] [address] [address] Manuel Sandhu CHEMISTRYOrdered By: SYSTEM SYSTEM [...] 0.6 mg/dL Normal 0.5 - 1.3 mg/dL [facility] Remisol GFR/1.73 sq M.predicted among blacks MDRD (S/P/Bld) [Vol rate/Area] mL/min/1.73 m2 Normal >=59mL/min/1 .73 m2 [facility] Chem S GFR/1.73 sq M.predicted among non-blacks MDRD (S/P/Bld) [Vol rate/Area] mL/min/1.73 m2 Normal >=59mL/min/1 .73 m2 [facility] Chem S Glucose [Mass/Vol] 84 mg/dL Normal 55 - 199 mg/dL [facility] Remisol Potassium [Moles/Vol] 4.2 mmol/L Normal 3.5 - 5.3 mmol/L [facility] Remisol Sodium [Moles/Vol] 137 mmol/L Normal 135 - 145 mmol/L [facility] Urea nitrogen [Mass/Vol] 13 mg/dL Normal 5 - 21 mg/dL [facility] Remisol Urea nitrogen/Creatinine [Mass ratio] 22 mg/mg High 10 - 20 [facility] Remisol CHEMISTRYOrdered By: Lab ROP User on 08-08-2022 Glucose [Mass/Vol] 98 mg/dL Normal 55 - 99 mg/dL [facility] POC Subsection POC Device SN [id number] Invalid Interpretation Code [facility] POC Subsection POC User ID [id number] Invalid Interpretation Code [facility] POC Subsection POC Username MOLLY RALPH Invalid Interpretation Code [facility] POC Subsection HEMATOLOGYOrdered By: [...] AM) Normal Negative [facility] UA Auto SS [place].plasma/Lithiu m.RBC (Bld) [Mass ratio] 0-3 /HPF Normal [...] Desc Clean Catch (08/08/22 10:01 AM) Normal [facility] UA Auto SS Urobilinogen Qn (U) 0.3831081 {Lucila'U}/dL Normal 0.0 - 1.0 EU/dL [facility] UA Auto SS WBC Auto Ql (U) Negative (08/08/22 10:01 AM) Normal Negative [facility] UA Auto SS WBC LM.HPF (Urine sed) [#/Area] 0-5 /HPF Normal 0-5/HPF [facility] UA Auto SS CBC AUTO DIFFon 07-19-2022 BASO # 0.1 103/ul Normal 0.0-0.1 [facility] Comment on above: Performed By: #### I NFLUAB #### [facility] [address] [address] [address] Manuel Sandhu Basophils/100 WBC (Bld) 0.4 % Normal 0.2-2.0 [facility] Comment on above: Performed By: #### I NFLUAB #### [facility] [address] [address] [address] Manuel Sandhu EO # 0.3 103/ul Normal 0.0-0.7 [facility] Comment on above: Performed By: #### I NFLUAB #### [facility] [address] [address] [address] Manuel Sandhu Eosinophils/100 WBC (Bld) 2.4 % Normal 0.9-7.0 [facility] Comment on above: Performed By: #### I NFLUAB #### [facility] [address] [place] [address] Dr. Manuel Sandhu Erythrocyte distribution width (RBC) [Ratio] 13.7 % Normal 11.0-15.0 [facility] Comment on above: Performed By: #### I NFLUAB #### [facility] [address] [place] [address] Dr. Manuel Sandhu Hematocrit (Bld) [Volume fraction] 36.5 % Normal 36.0-48.0 [facility] Comment on above: Performed By: #### I NFLUAB #### [facility] [address] [place] [address] Dr. Manuel Sandhu Hemoglobin (Bld) [Mass/Vol] 12.3 g/dL Normal 12.0-16.0 [facility] Comment on above: Performed By: #### I NFLUAB #### [facility] [address] [place] [address] Dr. Manuel Sandhu IG # 0.04 10e3/ul Critically high 0.00-0.03 [facility] Comment on above: Performed By: #### I NFLUAB #### [facility] [address] [place] [address] Dr. Manuel Sandhu IG % 0.3 % Normal 0.0-0.5 [facility] Comment on above: Performed By: #### I NFLUAB #### [facility] [address] [place] [address] Dr. Manuel Sandhu LYMPH # 2.6 103/ul Normal 1.2-3.8 [facility] Comment on above: Performed By: #### I NFLUAB #### [facility] [address] [place] [address] Dr. Manuel Sandhu Lymphocytes/100 WBC (Bld) 22.3 % Normal 20.5-60.0 [facility] Comment on above: Performed By: #### I NFLUAB #### [facility] [address] [place] [address] Dr. Manuel Sandhu MANUAL DIFF REQ NO Normal [facility] Comment on above: Performed By: #### I NFLUAB #### [facility] [address] [place] [address] Dr. Manuel Sandhu MCH (RBC) [Entitic mass] 32.5 pg Normal 26.7-34.0 [facility] Comment on above: Performed By: #### I NFLUAB #### [facility] [address] [place] [address] Dr. Manuel Sandhu MCHC (RBC) [Mass/Vol] 33.7 g/dL Normal 29.9-35.2 [facility] Comment on above: Performed By: #### I NFLUAB #### [facility] [address] [place] [address] Dr. Manuel Sandhu MCV (RBC) [Entitic vol] 96.6 fL Normal 81.0-99.0 [facility] Comment on above: Performed By: #### I NFLUAB #### [facility] [address] [place] [address] Dr. Manuel Sandhu MONO # 0.6 103/ul Normal 0.3-0.8 [facility] Comment on above: Performed By: #### I NFLUAB #### [facility] [address] [place] [address] Dr. Manuel Sandhu Monocytes/100 WBC (Bld) 5.2 % Normal 1.7-12.0 [facility] Comment on above: Performed By: #### I NFLUAB #### [facility] [address] [place] [address] Dr. Manuel Sandhu NEUT # 8.2 103/ul Critically high 1.4-6.5 [facility] Comment on above: Performed By: #### I NFLUAB #### [facility] [address] [place] [address] Dr. Manuel Sandhu Neutrophils/100 WBC (Bld) 69.4 % Normal 43.0-75.0 [facility] Comment on above: Performed By: #### I NFLUAB #### [facility] [address] [place] [address] Dr. Manuel Sandhu Platelet mean volume (Bld) [Entitic vol] 11.2 fL Normal 9.5-13.5 [facility] Comment on above: Performed By: #### I NFLUAB #### [facility] [address] [place] [address] Dr. Manuel Sandhu PLT 308 103/ul Normal 150-450 [facility] Comment on above: Performed By: #### I NFLUAB #### [facility] [address] [place] [address] Dr. Manuel Sandhu RBC 3.78 106/ul Critically low 4.20-5.40 [facility] Comment on above: Performed By: #### I NFLUAB #### [facility] [address] [place] [address] Dr. Manuel Sandhu WBC 11.8 103/ul Critically high 4.0-11.0 [facility] Comment on above: Performed By: #### I NFLUAB #### [facility] [address] [place] [address] Dr. Manuel Sandhu D-DIMERon 07-19-2022 D-DIMER 0.29 mg/L FEU Normal <=0.59 [facility] Comment on above: Performed By: #### U MICRO, ERUR #### [facility] [address] [place] [address] Dr. Manuel Sandhu D-DIMER COMMENTS SEE BELOW Normal [facility] Comment on above: Result Comment: Incr [...] Performed By: #### U MICRO, ERUR #### [facility] [address] [place] [address] Dr. Manuel Sandhu LIPASEon 07-19-2022 Lipase [Catalytic activity/Vol] 119.0 U/L Normal 73.0-393.0 [facility] Comment on above: Performed By: #### C JENNIE PATRICK, LIPA #### [facility] [address] [place] [address] Dr. Manuel Sandhu PROF 14(COMP METB)on 022 Albumin [Mass/Vol] 3.5 g/dL Normal 3.4-5.0 [facility] Comment on above: Performed By: #### C CELINA JENNIE, LIPA #### [facility] [address] [place] [address] Dr. Manuel Sandhu Albumin/Globulin [Mass ratio] 1.0 {ratio} Normal [facility] Comment on above: Performed By: #### C CELINA JENNIE, LIPA #### [facility] [address] [place] [address] Dr. Manuel Sandhu ALP [Catalytic activity/Vol] 65 U/L Normal 46-116 [facility] Comment on above: Performed By: #### C CELINA JENNIE, LIPA #### [facility] [address] [place] [address] Dr. Manuel Sandhu ALT [Catalytic activity/Vol] 33 U/L Normal 14-59 [facility] Comment on above: Performed By: #### C JENNIE PATRICK, LIPA #### [facility] [address] [place] [address] Dr. Manuel Sandhu Anion gap [Moles/Vol] 10.8 mmol/L Normal [facility] Comment on above: Performed By: #### C JENNIE PATRICK, LIPA #### [facility] [address] [place] [address] Dr. Manuel Sandhu AST [Catalytic activity/Vol] 20 U/L Normal 15-37 [facility] Comment on above: Performed By: #### C JENNIE PATRICK, LIPA #### [facility] [address] [place] [address] Dr. Manuel Sandhu Bilirubin [Mass/Vol] 0.1 mg/dL Critically low 0.2-1.0 [facility] Comment on above: Performed By: #### C JENNIE PATRICK, LIPA #### [facility] [address] [address] [address] Manuel Sandhu Calcium [Mass/Vol] 8.7 mg/dL Normal 8.5-10.1 [facility] Comment on above: Performed By: #### C MP, JENNIE, LIPA #### [facility] [address] [address] [address] Manuel Sandhu Chloride [Moles/Vol] 105 mmol/L Normal 98-107 [facility] Comment on above: Performed By: #### C MP, JENNIE, LIPA #### [facility] [address] [address] [address] Manuel Sandhu CO2 [Moles/Vol] 24.4 mmol/L Normal 21.0-32.0 [facility] Comment on above: Performed By: #### C MP, JENNIE, LIPA #### [facility] [address] [place] [address] Dr. Manuel Sandhu Creatinine [Mass/Vol] 0.91 mg/dL Normal 0.55-1.02 [facility] Comment on above: Performed By: #### C MP, JENNIE, LIPA #### [facility] [address] [address] [address] Manuel Sandhu EGFR-AF LUXEMBOURGER >60 Normal >=60 [facility] Comment on above: Performed By: #### C MP, JENNIE, LIPA #### [facility] [address] [place] [address] Dr. Manuel Sandhu EGFR-NON AF LUXEMBOURGER >60 Normal >=60 [facility] Comment on above: Performed By: #### C MP, JENNIE, LIPA #### [facility] [address] [address] [address] Manuel Sandhu Globulin (S) [Mass/Vol] 3.4 g/dL Normal [facility] Comment on above: Performed By: #### C MP, JENNIE, LIPA #### [facility] [address] [address] [address] Manuel Sandhu Glucose [Mass/Vol] 127 mg/dL Critically high 74-106 [facility] Comment on above: Performed By: #### C MP JENNIE, LIPA #### [facility] [address] [place] [address] Dr. Manuel Sandhu Potassium [Moles/Vol] 3.2 mmol/L Critically low 3.5-5.1 [facility] Comment on above: Performed By: #### C MP JENNIE, LIPA #### [facility] [address] [place] [address] Dr. Manuel Sandhu Protein [Mass/Vol] 6.9 g/dL Normal 6.4-8.2 [facility] Comment on above: Performed By: #### C MP JENNIE, LIPA #### [facility] [address] [place] [address] Dr. Manuel Sandhu Sodium [Moles/Vol] 137 mmol/L Normal 136-145 [facility] Comment on above: Performed By: #### C CELINA JENNIE, LIPA #### [facility] [address] [place] [address] Dr. Manuel Sandhu Urea nitrogen [Mass/Vol] 13.0 mg/dL Normal 7.0-18.0 [facility] Comment on above: Performed By: #### C JENNIE PATRICK, LIPA #### [facility] [address] [place] [address] Dr. Manuel Sandhu Urea nitrogen/Creatinine [Mass ratio] 14.3 mg/mg Normal [facility] Comment on above: Performed By: #### C CELINA JENNIE, LIPA #### [facility] [address] [place] [address] Dr. Manuel Sandhu PROTIMEon 07-19-2022 INR Coag (PPP) [Relative time] 0.97 {INR} Normal [facility] Comment on above: Performed By: #### P TT, PT #### [facility] [address] [place] [address] Dr. Manuel Sandhu INR GUIDELINES SEE BELOW Normal [facility] Comment on above: Result Comment: CHUY RED INR: 2.0 - 3.0 CONDITIONS NOT LISTED BELOW 2.5 - 3.5 FOR PROSTHETIC HEART VALVE REPLACEMENT 2.5 - 3.5 RECURRENT THROMBOSIS Performed By: #### P TT, PT #### [facility] [address] [place] [address] Dr. Manuel Sandhu PT Coag (PPP) [Time] 10.5 s Normal 9.0-11.6 [facility] Comment on above: Performed By: #### P TT, PT #### [facility] [address] [place] [address] Dr. Manuel Sandhu PTTon 07-19-2022 aPTT Coag (Bld) [Time] 26.1 s Normal 22.3-36.2 [facility] Comment on above: Performed By: #### P TT, PT #### [facility] [address] [place] [address] Dr. Manuel Sandhu TROPONIN, HIGH SENSITIVITYon 07-19-2022 HSTROP 5.4 pg/mL Normal 4.0-51.3 [facility] Comment on above: Result Comment: CUT- OFF POINTS HAVE BEEN ESTABLISHED BASED ON THE FOURTH UNIVERSAL DEFINITIONS OF MYOCARDIAL INFARCTION. THE UPPER REFERENCE LIMIT (URL) OF TROPONIN, DEFINED THE 99TH PERCENTILE OF cTnI DISTRIBUTION IN A REFERENCE POPULATION, HAS BEEN CONFIRMED THE DECISION THRESHOLD FOR IA DIAGNOSIS. Performed By: #### U MICRO, ERUR #### [facility] [address] [place] [address] Dr. Manuel Sandhu HSTROP 5.1 pg/mL Normal 4.0-51.3 [facility] Comment on above: Result Comment: CUT- OFF POINTS HAVE BEEN ESTABLISHED BASED ON THE FOURTH UNIVERSAL DEFINITIONS OF MYOCARDIAL INFARCTION. THE UPPER REFERENCE LIMIT (URL) OF TROPONIN, DEFINED THE 99TH PERCENTILE OF cTnI DISTRIBUTION IN A REFERENCE POPULATION, HAS BEEN CONFIRMED THE DECISION THRESHOLD FOR IA DIAGNOSIS. Performed By: #### C MP, JENNIE, LIPA #### [facility] [address] [place] [address] Dr. Manuel Sandhu XR CHEST 1 Von [...] LUCIANA ALLEN Date: 2022-07-19 19:28 Normal [facility] Covid-19 PCR (CVDTB)on 05-16 SARS-CoV-2 (COVID-19) RNA JOSÉ MIGUEL+probe Ql (Unsp spec) Not detected Normal NOT DETECTED [facility] Comment on above: Result [...] for this test is supported by the Supervisor Payroll of Health and Human Service's declaration that [...] By: #### C JENNIE PATRICK LIPA #### [facility] [address] [place] [address] Dr. Manuel Sandhu XR CHEST 2 Von [...] CAROLYNE RALPH Date: 2022-06-12 10:12 Normal [facility] Covid-19 PCR (CVDTB)on 05-15 SARS-CoV-2 (COVID-19) RNA JOSÉ MIGUEL+probe Ql (Unsp spec) Not detected Normal NOT DETECTED [facility] [facility] Comment on above: Result [...] for this test is supported by the [place] of Health and Human Service's declaration that [...] used). Performed By: #### I NFLUAB #### [facility] [address] [address] [address] Manuel Sandhu CHEMISTRYOrdered By: SYSTEM SYSTEM [...] spec) Detected Critically abnormal NOT DETECTED [facility] Comment on above: Result Comment: This test is not yet approved or cleared by the [place] FDA. When there are no FDA-approved or cleared tests available, and other criteria are met, FDA can make tests available under an emergency access mechanism called an Emergency Use Authorization (EUA). The EUA for this test is supported by the [employer] of Health and Human Service's declaration that [...] By: #### C JENNIE PATRICK LIPA #### [facility] [address] [place] [address] Dr. Manuel Sandhu GROUP A STREP CULTUREon 03-15 S. pyogenes Ag Ql (Unsp spec) Culture Observations: NEGATIVE FOR GROUP A STREPTOCOCCUS. Normal [facility] Comment on above: Performed By: #### U MICRO, ERUR #### [facility] [address] [address] [address] Manuel Sandhu INFLUENZA A AND B AGon 04-07 INFLUENZA A AG Negative Normal NEGATIVE SEE COMMENT [facility] Comment on above: Performed By: #### I NFLUAB #### [facility] [address] [address] [address] Manuel Sandhu INFLUENZA B AG Negative Normal NEGATIVE SEE COMMENT [facility] Comment on above: Performed By: #### I NFLUAB #### [facility] [address] [address] [address] Manuel Sandhu INTERNAL CONTROLS Within Normal Limits Normal Wi thin Normal Limits [facility] Comment on above: Performed By: #### I NFLUAB #### [facility] [address] [address] [address] Manuel Sandhu STREPT SCREENon 04-07-2022 STREP SCREEN A Negative Normal NEGATIVE [facility] Comment on above: Performed By: #### U MICRO, ERUR #### [facility] [address] [address] [address] Manuel Sandhu CHEMISTRYOrdered By: SYSTEM SYSTEM [...] PM) Normal Negative [facility] UA Auto SS [place].plasma/Lithiu m.RBC (Bld) [Mass ratio] 0-3 /HPF Normal [...] [facility] UA Auto SS Urobilinogen Qn (U) 0.0040122 {Lucila'U}/dL Normal 0.0 - 1.0 EU/dL [facility] UA Auto SS WBC Auto Ql (U) Negative (04/03/22 6:51 PM) Normal Negative [facility] UA Auto SS WBC LM.HPF (Urine sed) [#/Area] 0-5 /HPF Normal 0-5/HPF [facility] UA Auto SS GROUP A STREP CULTUREon 01-13 S. pyogenes Ag Ql (Unsp spec) Culture Observations: NEGATIVE FOR GROUP A STREPTOCOCCUS. Normal [facility] Comment on above: Performed By: #### I NFLUAB #### [facility] [address] [place] [address] Dr. Manuel Sandhu STREPT SCREENon 05-28-2022 STREP SCREEN A Negative Normal NEGATIVE [facility] Comment on above: Performed By: #### I NFLUAB #### [facility] [address] [place] [address] Dr. Manuel Sandhu CBC AUTO DIFFon 01-30-2022 BASO # 0.1 103/ul Normal 0.0-0.1 [facility] Comment on above: Performed By: #### C BC #### [facility] [address] [place] [address] Dr. Manuel Sandhu Basophils/100 WBC (Bld) 0.4 % Normal 0.2-2.0 [facility] Comment on above: Performed By: #### C BC #### [facility] [address] [place] [address] Dr. Manuel Sandhu EO # 0.4 103/ul Normal 0.0-0.7 [facility] Comment on above: Performed By: #### C BC #### [facility] [address] [place] [address] Dr. Manuel Sandhu Eosinophils/100 WBC (Bld) 3.0 % Normal 0.9-7.0 [facility] Comment on above: Performed By: #### C BC #### [facility] [address] [place] [address] Dr. Manuel Sandhu Erythrocyte distribution width (RBC) [Ratio] 13.3 % Normal 11.0-15.0 [facility] Comment on above: Performed By: #### C BC #### [facility] [address] [place] [address] Dr. Manuel Sandhu Hematocrit (Bld) [Volume fraction] 36.8 % Normal 36.0-48.0 [facility] Comment on above: Performed By: #### C BC #### [facility] [address] [place] [address] Dr. Manuel Sandhu Hemoglobin (Bld) [Mass/Vol] 12.2 g/dL Normal 12.0-16.0 [facility] Comment on above: Performed By: #### C BC #### [facility] [address] [place] [address] Dr. Manuel Sandhu IG # 0.04 10e3/ul Critically high 0.00-0.03 [facility] Comment on above: Performed By: #### C BC #### [facility] [address] [place] [address] Dr. Manuel Sandhu IG % 0.3 % Normal 0.0-0.5 [facility] Comment on above: Performed By: #### C BC #### [facility] [address] [place] [address] Dr. Manuel Sandhu LYMPH # 2.8 103/ul Normal 1.2-3.8 [facility] Comment on above: Performed By: #### C BC #### [facility] [address] [place] [address] Dr. Manuel Sandhu Lymphocytes/100 WBC (Bld) 23.0 % Normal 20.5-60.0 [facility] Comment on above: Performed By: #### C BC #### [facility] [address] [place] [address] Dr. Manuel Sandhu MANUAL DIFF REQ NO Normal [facility] Comment on above: Performed By: #### C BC #### [facility] [address] [place] [address] Dr. Manuel Sandhu MCH (RBC) [Entitic mass] 32.1 pg Normal 26.7-34.0 [facility] Comment on above: Performed By: #### C BC #### [facility] [address] [place] [address] Dr. Manuel Sandhu MCHC (RBC) [Mass/Vol] 33.2 g/dL Normal 29.9-35.2 [facility] Comment on above: Performed By: #### C BC #### [facility] [address] [place] [address] Dr. Manuel Sandhu MCV (RBC) [Entitic vol] 96.8 fL Normal 81.0-99.0 [facility] Comment on above: Performed By: #### C BC #### [facility] [address] [place] [address] Dr. Manuel Sandhu MONO # 0.7 103/ul Normal 0.3-0.8 [facility] Comment on above: Performed By: #### C BC #### [facility] [address] [address] [address] Manuel Sandhu Monocytes/100 WBC (Bld) 5.6 % Normal 1.7-12.0 [facility] Comment on above: Performed By: #### C BC #### [facility] [address] [address] [address] Maneul Sandhu NEUT # 8.2 103/ul Critically high 1.4-6.5 [facility] Comment on above: Performed By: #### C BC #### [facility] [address] [address] [address] Manuel Sandhu Neutrophils/100 WBC (Bld) 67.7 % Normal 43.0-75.0 [facility] Comment on above: Performed By: #### C BC #### [facility] [address] [place] [address] Dr. Manuel Sandhu Platelet mean volume (Bld) [Entitic vol] 11.2 fL Normal 9.5-13.5 [facility] Comment on above: Performed By: #### C BC #### [facility] [address] [place] [address] Dr. Manuel Sandhu PLT 312 103/ul Normal 150-450 [facility] Comment on above: Performed By: #### C BC #### [facility] [address] [place] [address] Dr. Manuel Sandhu RBC 3.80 106/ul Critically low 4.20-5.40 [facility] Comment on above: Performed By: #### C BC #### [facility] [address] [place] [address] Dr. Manuel Sandhu WBC 12.1 103/ul Critically high 4.0-11.0 [facility] Comment on above: Performed By: #### C BC #### [facility] [address] [place] [address] Dr. Manuel Sandhu [facility]12 SARS-CoV-2 (COVID-19) RNA JOSÉ MIGUEL+probe Ql (Unsp spec) Not detected Normal NOT DETECTED [facility] Comment on above: Result Comment: This test is not yet approved or cleared by the [place] FDA. When there are no FDA-approved or cleared tests available, and other criteria are met, FDA can make tests available under an emergency access mechanism called an Emergency Use Authorization (EUA). The EUA for this test is supported by the [employer] of Health and Human Service's (HHS's) declaration [...] SARS-CoV-2. Performed By: #### C VDTBH #### [facility] [address] [place] [address] Dr. Manuel Sandhu DRUG SCREEN RAPID (URINE)on 01-30-2022 AMP Negative Normal NEGATIVE [facility] Comment on above: Performed By: #### U MICRO, ERUR #### [facility] [address] [place] [address] Dr. Manuel Sandhu BAR Negative Normal NEGATIVE [facility] Comment on above: Performed By: #### U MICRO, ERUR #### [facility] [address] [place] [address] Dr. Manuel Sandhu BUP Negative Normal NEGATIVE [facility] Comment on above: Performed By: #### U MICRO, ERUR #### [facility] [address] [address] [address] Manuel Sandhu BZO Negative Normal NEGATIVE [facility] Comment on above: Performed By: #### U MICRO, ERUR #### [facility] [address] [place] [address] Dr. Manuel Sandhu WISAM Negative Normal NEGATIVE [facility] Comment on above: Performed By: #### U MICRO, ERUR #### [facility] [address] [place] [address] Dr. Manuel Sandhu CUT-OFFS SEE BELOW Normal [facility] Comment on above: Result Comment: AMP [...] Performed By: #### U MICRO, ERUR #### [facility] [address] [place] [address] Dr. Manuel Sandhu DRUG CUT HEADER DRUG CLASS TEST SYST EM CUT-OFF CONCENTRATIONS ARE FOLLOWS: Normal [facility] Comment on above: Performed By: #### U MICRO, ERUR #### [facility] [address] [place] [address] Dr. Manuel Sandhu mAMP Negative Normal NEGATIVE [facility] Comment on above: Performed By: #### U MICRO, ERUR #### [facility] [address] [place] [address] Dr. Manuel Sandhu MTD Negative Normal NEGATIVE [facility] Comment on above: Performed By: #### U MICRO, ERUR #### [facility] [address] [place] [address] Dr. Manuel Sandhu OPI Negative Normal NEGATIVE [facility] Comment on above: Performed By: #### U MICRO, ERUR #### [facility] [address] [place] [address] Dr. Manuel Sandhu OXY Negative Normal NEGATIVE [facility] Comment on above: Performed By: #### U MICRO, ERUR #### [facility] [address] [place] [address] Dr. Manuel Sandhu PCP Negative Normal NEGATIVE [facility] Comment on above: Performed By: #### U MICRO, ERUR #### [facility] [address] [address] [address] Manuel Sandhu PPX Negative Normal NEGATIVE [facility] Comment on above: Performed By: #### U MICRO, ERUR #### [facility] [address] [address] [address] Manuel Sandhu TCA Negative Normal NEGATIVE [facility] Comment on above: Performed By: #### U MICRO, ERUR #### [facility] [address] [address] [address] Manuel Sandhu THC Negative Normal NEGATIVE [facility] Comment on above: Performed By: #### U MICRO, ERUR #### [facility] [address] [address] [address] Manuel Sandhu ER URINE PROFILEon 2 Bilirubin Ql (U) Negative Normal NEGATIVE [facility] Comment on above: Performed By: #### U MICRO, ERUR #### [facility] [address] [address] [address] Manuel Sandhu Clarity (U) CLEAR Normal CLEAR [facility] Comment on above: Performed By: #### U MICRO, ERUR #### [facility] [address] [address] [address] Manuel Sandhu Color (U) LT. YELLOW Normal YELLOW [facility] Comment on above: Performed By: #### U MICRO, ERUR #### [facility] [address] [address] [address] Manuel Sandhu ERUAHD A micrscopic examina tion will be performed if indicated. Normal [facility] Comment on above: Performed By: #### U MICRO, ERUR #### [facility] [address] [address] [address] Manuel Sandhu Glucose Ql (U) Negative Normal NEGATIVE [facility] Comment on above: Performed By: #### U MICRO, ERUR #### [facility] [address] [address] [address] Manuel Sandhu Hemoglobin Ql (U) Negative Normal NEGATIVE [facility] Comment on above: Performed By: #### U MICRO, ERUR #### [facility] [address] [address] [address] Manuel Sandhu Ketones Ql (U) Negative Normal NEGATIVE [facility] Comment on above: Performed By: #### U MICRO, ERUR #### [facility] [address] [place] [address] Dr. Manuel Sandhu LEUKOCYTES Negative Normal NEGATIVE [facility] Comment on above: Performed By: #### U MICRO, ERUR #### [facility] [address] [place] [address] Dr. Manuel Sandhu Nitrite Ql (U) Negative Normal NEGATIVE [facility] Comment on above: Performed By: #### U MICRO, ERUR #### [facility] [address] [place] [address] Dr. Manuel Sandhu pH (U) 5.5 [pH] Normal 5-9 [facility] Comment on above: Performed By: #### U MICRO, ERUR #### [facility] [address] [place] [address] Dr. Manuel Sandhu SPEC GRAVITY <=1.005 Abnormal 1.005-<=1.02 5 [facility] Comment on above: Performed By: #### U MICRO, ERUR #### [facility] [address] [place] [address] Dr. Manuel Sandhu UA PROTEIN Negative Normal NEGATIVE/ TRACE [facility] Comment on above: Performed By: #### U MICRO, ERUR #### [facility] [address] [address] [address] Manuel Sandhu UR MICRO IND NOT INDICATED Normal [facility] Comment on above: Performed By: #### U MICRO, ERUR #### [facility] [address] [place] [address] Dr. Manuel Sandhu Urobilinogen Qn (U) 0.2 {Lucila'U}/dL Normal 0.2 - 1. 0 [facility] Comment on above: Performed By: #### U MICRO, ERUR #### [facility] [address] [place] [address] Dr. Manuel Sandhu ETHANOL (BLD ALC)on 01-31-20 22 ALC NOTE NOTE: 80 mg/dl is e legal limit for a blood alcohol level Normal [facility] Comment on above: Performed By: #### I NFLUAB #### [facility] [address] [place] [address] Dr. Manuel Sandhu Ethanol [Mass/Vol] 47 mg/dL Normal [facility] Comment on above: Performed By: #### I NFLUAB #### [facility] [address] [address] [address] Manuel Sandhu PREG HCG QUALon 01-30-2022 , QUAL Negative Normal NEGATIVE [facility] Comment on above: Performed By: #### U MICRO, ERUR #### [facility] [address] [place] [address] Dr. Manuel Sandhu PROF 14(COMP METB)on 022 Albumin [Mass/Vol] 3.8 g/dL Normal 3.4-5.0 [facility] Comment on above: Performed By: #### I NFLUAB #### [facility] [address] [address] [address] Manuel Sandhu Albumin/Globulin [Mass ratio] 1.1 {ratio} Normal [facility] Comment on above: Performed By: #### I NFLUAB #### [facility] [address] [place] [address] Dr. Manuel Sandhu ALP [Catalytic activity/Vol] 88 U/L Normal 46-116 [facility] Comment on above: Performed By: #### I NFLUAB #### [facility] [address] [address] [address] Manuel Sandhu ALT [Catalytic activity/Vol] 30 U/L Normal 14-59 [facility] Comment on above: Performed By: #### I NFLUAB #### [facility] [address] [address] [address] Manuel Sandhu Anion gap [Moles/Vol] 17.3 mmol/L Normal [facility] Comment on above: Performed By: #### I NFLUAB #### [facility] [address] [address] [address] Manuel Sandhu AST [Catalytic activity/Vol] 17 U/L Normal 15-37 [facility] Comment on above: Performed By: #### I NFLUAB #### [facility] [address] [address] [address] Manuel Sandhu Bilirubin [Mass/Vol] 0.2 mg/dL Normal 0.2-1.0 [facility] Comment on above: Performed By: #### I NFLUAB #### [facility] [address] [address] [address] Manuel Sandhu Calcium [Mass/Vol] 8.9 mg/dL Normal 8.5-10.1 [facility] Comment on above: Performed By: #### I NFLUAB #### [facility] [address] [place] [address] Dr. Manuel Sandhu Chloride [Moles/Vol] 109 mmol/L Critically high 98-107 [facility] Comment on above: Performed By: #### I NFLUAB #### [facility] [address] [place] [address] Dr. Manuel Sandhu CO2 [Moles/Vol] 20.2 mmol/L Critically low 21.0-32.0 [facility] Comment on above: Performed By: #### I NFLUAB #### [facility] [address] [place] [address] Dr. Manuel Sandhu Creatinine [Mass/Vol] 0.69 mg/dL Normal 0.55-1.02 [facility] Comment on above: Performed By: #### I NFLUAB #### [facility] [address] [place] [address] Dr. Manuel Sandhu EGFR-AF LUXEMBOURGER >60 Normal >=60 [facility] Comment on above: Performed By: #### I NFLUAB #### [facility] [address] [place] [address] Dr. Manuel Sandhu EGFR-NON AF LUXEMBOURGER >60 Normal >=60 [facility] Comment on above: Performed By: #### I NFLUAB #### [facility] [address] [address] [address] Manuel Sandhu Globulin (S) [Mass/Vol] 3.6 g/dL Normal [facility] Comment on above: Performed By: #### I NFLUAB #### [facility] [address] [place] [address] Dr. Manuel Sandhu Glucose [Mass/Vol] 79 mg/dL Normal 74-106 [facility] Comment on above: Performed By: #### I NFLUAB #### [facility] [address] [address] [address] Manuel Sandhu Potassium [Moles/Vol] 3.5 mmol/L Normal 3.5-5.1 [facility] Comment on above: Performed By: #### I NFLUAB #### [facility] [address] [place] [address] Dr. Manuel Sandhu Protein [Mass/Vol] 7.4 g/dL Normal 6.4-8.2 [facility] Comment on above: Performed By: #### I NFLUAB #### [facility] [address] [place] [address] Dr. Manuel Sandhu Sodium [Moles/Vol] 143 mmol/L Normal 136-145 [facility] Comment on above: Performed By: #### I NFLUAB #### [facility] [address] [place] [address] Dr. Manuel Sandhu Urea nitrogen [Mass/Vol] 18.0 mg/dL Normal 7.0-18.0 [facility] Comment on above: Performed By: #### I NFLUAB #### [facility] [address] [place] [address] Dr. Manuel Sandhu Urea nitrogen/Creatinine [Mass ratio] 26.1 mg/mg Normal [facility] Comment on above: Performed By: #### I NFLUAB #### [facility] [address] [place] [address] Dr. Manuel Sandhu AMYLASEon 11-16-2021 Amylase [Catalytic activity/Vol] 60 U/L Normal 31-110 [facility] Comment on above: Performed By: #### C MP, JENNIE, LIPA #### [facility] [address] [place] [address] Dr. Manuel Sandhu CBC AUTO DIFFon 11-16-2021 BASO # 0.1 103/ul Normal 0.0-0.1 [facility] Comment on above: Performed By: #### C MP, JENNIE, LIPA #### [facility] [address] [place] [address] Dr. Manuel Sandhu Basophils/100 WBC (Bld) 0.5 % Normal 0.2-2.0 [facility] Comment on above: Performed By: #### C MP, JENNIE, LIPA #### [facility] [address] [place] [address] Dr. Manuel Sandhu EO # 0.3 103/ul Normal 0.0-0.7 [facility] Comment on above: Performed By: #### C MP JENNIE, LIPA #### [facility] [address] [place] [address] Dr. Manuel Sandhu Eosinophils/100 WBC (Bld) 3.1 % Normal 0.9-7.0 [facility] Comment on above: Performed By: #### C CELINA JENNIE, LIPA #### [facility] [address] [place] [address] Dr. Manuel Sandhu Erythrocyte distribution width (RBC) [Ratio] 13.4 % Normal 11.0-15.0 [facility] Comment on above: Performed By: #### C CELINA JENNIE, LIPA #### [facility] [address] [place] [address] Dr. Manuel Sandhu Hematocrit (Bld) [Volume fraction] 39.0 % Normal 36.0-48.0 [facility] Comment on above: Performed By: #### C MP JENNIE, LIPA #### [facility] [address] [place] [address] Dr. Manuel Sandhu Hemoglobin (Bld) [Mass/Vol] 12.8 g/dL Normal 12.0-16.0 [facility] Comment on above: Performed By: #### C MP JENNIE, LIPA #### [facility] [address] [place] [address] Dr. Manuel Sandhu IG # 0.03 10e3/ul Normal 0.00-0.03 [facility] Comment on above: Performed By: #### C JENNIE PATRICK LIPA #### [facility] [address] [address] [address] Manuel Sandhu IG % 0.3 % Normal 0.0-0.5 [facility] Comment on above: Performed By: #### C JENNIE PATRICK LIPA #### [facility] [address] [place] [address] Dr. Manuel Sandhu LYMPH # 2.8 103/ul Normal 1.2-3.8 [facility] Comment on above: Performed By: #### C JENNIE PATRICK LIPA #### [facility] [address] [place] [address] Dr. Manuel Sandhu Lymphocytes/100 WBC (Bld) 29.9 % Normal 20.5-60.0 [facility] Comment on above: Performed By: #### C JENNIE PATRICK LIPA #### [facility] [address] [place] [address] Dr. Manuel Sandhu MANUAL DIFF REQ NO Normal [facility] Comment on above: Performed By: #### C JNENIE PATRICK LIPA #### [facility] [address] [place] [address] Dr. Manuel Sandhu MCH (RBC) [Entitic mass] 32.2 pg Normal 26.7-34.0 [facility] Comment on above: Performed By: #### C JENNIE PATRICK LIPA #### [facility] [address] [place] [address] Dr. Manuel Sandhu MCHC (RBC) [Mass/Vol] 32.8 g/dL Normal 29.9-35.2 [facility] Comment on above: Performed By: #### C JENNIE PATRICK LIPA #### [facility] [address] [place] [address] Dr. Manuel Sandhu MCV (RBC) [Entitic vol] 98.0 fL Normal 81.0-99.0 [facility] Comment on above: Performed By: #### C MP, JENNIE, LIPA #### [facility] [address] [place] [address] Dr. Manuel Sandhu MONO # 0.7 103/ul Normal 0.3-0.8 [facility] Comment on above: Performed By: #### C MP, JENNIE, LIPA #### [facility] [address] [place] [address] Dr. Manuel Sandhu Monocytes/100 WBC (Bld) 7.7 % Normal 1.7-12.0 [facility] Comment on above: Performed By: #### C MP, JENNIE, LIPA #### [facility] [address] [place] [address] Dr. Manuel Sandhu NEUT # 5.5 103/ul Normal 1.4-6.5 [facility] Comment on above: Performed By: #### C MP, JENNIE, LIPA #### [facility] [address] [place] [address] Dr. Manuel Sandhu Neutrophils/100 WBC (Bld) 58.5 % Normal 43.0-75.0 [facility] Comment on above: Performed By: #### C MP JENNIE, LIPA #### [facility] [address] [place] [address] Dr. Manuel Sandhu Platelet mean volume (Bld) [Entitic vol] 11.7 fL Normal 9.5-13.5 [facility] Comment on above: Performed By: #### C MP, JENNIE, LIPA #### [facility] [address] [place] [address] Dr. Manuel Sandhu PLT 301 103/ul Normal 150-450 [facility] Comment on above: Performed By: #### C MP, JENNIE, LIPA #### [facility] [address] [place] [address] Dr. Manuel Sandhu RBC 3.98 106/ul Critically low 4.20-5.40 [facility] Comment on above: Performed By: #### C MP, JENNIE, LIPA #### [facility] [address] [place] [address] Dr. Manuel Sandhu WBC 9.3 103/ul Normal 4.0-11.0 [facility] Comment on above: Performed By: #### C JENNIE PATRICK LIPA #### [facility] [address] ABD/PELVIS WO CONon [...] HARMONY HARRELL Date: 2021-11-16 19:55 Normal [facility] ER URINE PROFILEon 2 Bilirubin Ql (U) Negative Normal NEGATIVE [facility] Comment on above: Performed By: #### C CELINA JENNIE, LIPA #### [facility] [address] [place] [address] Dr. Manuel Sandhu Clarity (U) CLEAR Normal CLEAR [facility] Comment on above: Performed By: #### C CELINA JENNIE, LIPA #### [facility] [address] [place] [address] Dr. Manuel Sandhu Color (U) LT. YELLOW Normal YELLOW [facility] Comment on above: Performed By: #### C CELINA JENNIE, LIPA #### [facility] [address] [place] [address] Dr. Manuel Sandhu ERUAHD A micrscopic examina tion will be performed if indicated. Normal [facility] Comment on above: Performed By: #### C MP, JENNIE, LIPA #### [facility] [address] [place] [address] Dr. Manuel Sandhu Glucose Ql (U) Negative Normal NEGATIVE [facility] Comment on above: Performed By: #### C MP, JENNIE, LIPA #### [facility] [address] [place] [address] Dr. Manuel Sandhu Hemoglobin Ql (U) Negative Normal NEGATIVE [facility] Comment on above: Performed By: #### C MP JENNIE, LIPA #### [facility] [address] [place] [address] Dr. Manuel Sandhu Ketones Ql (U) Negative Normal NEGATIVE [facility] Comment on above: Performed By: #### C MP, JENNIE, LIPA #### [facility] [address] [place] [address] Dr. Manuel Sandhu LEUKOCYTES Negative Normal NEGATIVE [facility] Comment on above: Performed By: #### C MP, JENNIE, LIPA #### [facility] [address] [place] [address] Dr. Manuel Sandhu Nitrite Ql (U) Negative Normal NEGATIVE [facility] Comment on above: Performed By: #### C MP, JENNIE, LIPA #### [facility] [address] [place] [address] Dr. Manuel Sandhu pH (U) 7.0 [pH] Normal 5-9 [facility] Comment on above: Performed By: #### C MP JENNIE, LIPA #### [facility] [address] [place] [address] Dr. Manuel Sandhu SPEC GRAVITY <=1.005 Abnormal 1.005-<=1.02 5 [facility] Comment on above: Performed By: #### C MP, JENNIE, LIPA #### [facility] [address] [place] [address] Dr. Manuel Sandhu UA PROTEIN Negative Normal NEGATIVE/ TRACE [facility] Comment on above: Performed By: #### C CELINA JENNIE, LIPA #### [facility] [address] [place] [address] Dr. Manuel Sandhu UR MICRO IND NOT INDICATED Normal [facility] Comment on above: Performed By: #### C MP, JENNIE, LIPA #### [facility] [address] [place] [address] Dr. Manuel Sandhu Urobilinogen Qn (U) 0.2 {Lucila'U}/dL Normal 0.2 - 1. 0 [facility] Comment on above: Performed By: #### C MP, JENNIE, LIPA #### [facility] [address] [place] [address] Dr. Manuel Sandhu LIPASEon 11-16-2021 Lipase [Catalytic activity/Vol] 78.0 U/L Normal 23.0-300.0 [facility] Comment on above: Performed By: #### C CELINA JENNIE, LIPA #### [facility] [address] [place] [address] Dr. Manuel Sandhu URon 11-16-2021 , QUAL Negative Normal NEGATIVE [facility] Comment on above: Performed By: #### C MP, JENNIE, LIPA #### [facility] [address] [place] [address] Dr. Manuel Sandhu PROF 14(COMP METB)on 022 Albumin [Mass/Vol] 4.1 g/dL Normal 3.5-5.0 [facility] Comment on above: Performed By: #### C CELINA JENNIE, LIPA #### [facility] [address] [place] [address] Dr. Manuel Sandhu Albumin/Globulin [Mass ratio] 1.1 {ratio} Normal [facility] Comment on above: Performed By: #### C MP, JENNIE, LIPA #### [facility] [address] [place] [address] Dr. Manuel Sandhu ALP [Catalytic activity/Vol] 102 U/L Normal 38-126 [facility] Comment on above: Performed By: #### C MP JENNIE, LIPA #### [facility] [address] [place] [address] Dr. Manuel Sandhu ALT [Catalytic activity/Vol] 39 U/L Normal 9-52 [facility] Comment on above: Performed By: #### C MP, JENNIE, LIPA #### [facility] [address] [place] [address] Dr. Manuel Sandhu Anion gap [Moles/Vol] 11.5 mmol/L Normal [facility] Comment on above: Performed By: #### C MP, JENNIE, LIPA #### [facility] [address] [place] [address] Dr. Manuel Sandhu AST [Catalytic activity/Vol] 28 U/L Normal 14-36 [facility] Comment on above: Performed By: #### C MP, JENNIE, LIPA #### [facility] [address] [address] [address] Manuel Sandhu Bilirubin [Mass/Vol] 0.2 mg/dL Normal 0.2-1.3 [facility] Comment on above: Performed By: #### C MP, JENNIE, LIPA #### [facility] [address] [address] [address] Manuel Sandhu Calcium [Mass/Vol] 9.1 mg/dL Normal 8.4-10.2 [facility] Comment on above: Performed By: #### C MP, JENNIE, LIPA #### [facility] [address] [place] [address] Dr. Manuel Sandhu Chloride [Moles/Vol] 105 mmol/L Normal 98-107 [facility] Comment on above: Performed By: #### C MP, JENNIE, LIPA #### [facility] [address] [place] [address] Dr. Manuel Sandhu CO2 [Moles/Vol] 25.0 mmol/L Normal 22.0-30.0 [facility] Comment on above: Performed By: #### C MP, JENNIE, LIPA #### [facility] [address] [place] [address] Dr. Manuel Sandhu Creatinine [Mass/Vol] 0.77 mg/dL Normal 0.52-1.04 [facility] Comment on above: Performed By: #### C MP, JENNIE, LIPA #### [facility] [address] [place] [address] Dr. Manuel Sandhu EGFR-AF LUXEMBOURGER >60 Normal >=60 [facility] Comment on above: Performed By: #### C MP, JENNIE, LIPA #### [facility] [address] [place] [address] Dr. Manuel Sandhu EGFR-NON AF LUXEMBOURGER >60 Normal >=60 [facility] Comment on above: Performed By: #### C MP, JENNIE, LIPA #### [facility] [address] [place] [address] Dr. Manuel Sandhu Globulin (S) [Mass/Vol] 3.8 g/dL Normal [facility] Comment on above: Performed By: #### C JENNIE PATRICK, LIPA #### [facility] [address] [address] [address] Manuel Sandhu Glucose [Mass/Vol] 85 mg/dL Normal 74-106 [facility] Comment on above: Performed By: #### C JENNIE PATRICK, LIPA #### [facility] [address] [address] [address] Manuel Sandhu Potassium [Moles/Vol] 3.5 mmol/L Normal 3.4-5.0 [facility] Comment on above: Performed By: #### C JENNIE PATRICK, LIPA #### [facility] [address] [address] [address] Manuel Sandhu Protein [Mass/Vol] 7.9 g/dL Normal 6.1-8.2 [facility] Comment on above: Performed By: #### C JENNIE PATRICK LIPA #### [facility] [address] [address] [address] Manuel Sandhu Sodium [Moles/Vol] 138 mmol/L Normal 137-145 [facility] Comment on above: Performed By: #### C JENNIE PATRICK LIPA #### [facility] [address] [address] [address] Manuel Sandhu Urea nitrogen [Mass/Vol] 18.0 mg/dL Critically high 7.0-17.0 [facility] Comment on above: Performed By: #### C JENNIE PATRICK LIPA #### [facility] [address] [address] [address] Manuel Sandhu Urea nitrogen/Creatinine [Mass ratio] 23.4 mg/mg Normal [facility] Comment on above: Performed By: #### C JENNIE PATRICK LIPA #### [facility] [address] [place] [address] ABDOMEN PELVIS W [...] in the pelvis, which could be physiologic. [employer] [facility] Phone: EXAMINATION: CT OF T HE ABDOMEN [...] grade 1 anterolisthesis at L5-S1 is unchanged. [employer] [facility] Phone: Dario, [facility] Incoming Radiant Results From [employer] - 02/04/2021 4:32 PM EDT EXAMINATION: CT [...] in the pelvis, which could be physiologic. [employer] Phone: [employer] [facility] Phone: Basic Metabolic Panel w/ Ref brannon to MGOrdered By: Ruiz Joel on 02-01-2021 Anion gap [Moles/Vol] 15 mmol/L 9 - 17 mmol/L [employer] [facility] Phone: Calcium [Mass/Vol] 8.5 mg/dL Low 8.6 - 10. 4 mg/dL [employer] [facility] Phone: Chloride [Moles/Vol] 107 mmol/L 98 - 10 7 mmol/L [employer] [facility] Phone: CO2 [Moles/Vol] 16 mmol/L Low 20 - 31 mmol/L [employer] [facility] Phone: Creatinine [Mass/Vol] 0.36 mg/dL Low 0.50 - 0.90 mg/dL [employer] [facility] Phone: GFR >60 >60 mL/min [employer] Phone: GFR Non- >60 >60 mL/min [employer] [facility] Phone: GFR/1.73 sq M.predicted MDRD (S/P/Bld) [Vol rate/Area] [employer] [facility] Phone: Comment on above: Average GFR for 30-3 9 years old: 107 mL/min/1.73sq m Chronic Kidney Disease: <60 mL/min/1.73sq m Kidney failure: <15 mL/min/1.73sq m eGFR calculated using average adult body mass. Additional eGFR calculator available at: http://www.[employer]/multiple_crcl_2012.htm GFR/1.73 sq M.predicted MDRD (S/P/Bld) [Vol rate/Area] NOT REPORTED [employer] [facility] Phone: Glucose [Mass/Vol] 79 mg/dL 70 - 99 mg/dL [employer] Phone: Interpretation and review of laboratory results Abnormal [employer] Phone: Potassium [Moles/Vol] 3.7 mmol/L 3.7 - 5.3 mmol/L [employer] Phone: Sodium [Moles/Vol] 138 mmol/L 135 - 144 mmol/L [employer] Phone: Urea nitrogen (BldV) [Mass/Vol] 2 mg/dL Low 6 - 20 mg/dL [employer] Phone: Urea nitrogen/Creatinine (Bld) [Mass ratio] NOT REPORTED [employer] Phone: [employer] Phone: CBC WITH AUTO DIFFERENTIALOr dered By: Ruiz Joel on 02-01-2021 [employer] # 0.28 [facility] Work Phone: Absolute Immature Granulocyte 0.06 [employer] Work Phone: Absolute Lymph # 1.62 [employer]ches [employer] He [facility] Work Phone: Absolute [place] # 1.46 High [facility] [facility] Work Phone: Basophils (Bld) [#/Vol] 0.04 10*3/uL [facility] Work Phone: Basophils/100 WBC (Bld) 0 % 0 - 2 % [employer] Phone: Differential Type NOT REPORTED [employer] Phone: Eosinophils/100 WBC (Bld) 3 % 1 - 4 % [facility] Work Phone: Hematocrit (Bld) [Volume fraction] 33.7 % Low 36.3 - 47.1 % [facility] Work Phone: Hemoglobin.gastrointe stinal spec 1 Ql (Stl) 10.3 g/dL Low 11.9 - 15.1 g/dL [employer] Phone: Immature granulocytes/100 WBC (Bld) 1 % High 0 [employer] Work Phone: Interpretation and review of laboratory results Abnormal [employer] Phone: Lymphocytes/100 WBC (Bld) 14 % Low 24 - 43 % [employer] Phone: MCH (RBC) [Entitic mass] 29.9 pg 25.2 - 33.5 pg [employer] Phone: MCHC (RBC) [Mass/Vol] 30.6 g/dL 28.4 - 34.8 g/dL [employer] Phone: MCV (RBC) [Entitic vol] 98.0 fL 82.6 - 102.9 fL [employer] Phone: Monocytes/100 WBC (Bld) 13 % High 3 - 12 % [employer] Phone: NRBC Automated 0.0 0.0 per 100 WBC [employer] Phone: Platelet distribution width (Bld) [Ratio] 13.4 % 11.8 - 14.4 % [employer] Phone: Platelet Estimate NOT REPORTED [facility] Work Phone: Platelet mean volume (Bld) [Entitic vol] 11.6 fL 8.1 - 13.5 fL [employer] Work Phone: Platelets (Bld) [#/Vol] 392 10*3/uL [employer] Phone: RBC (Bld) [#/Vol] 3.44 10*6/uL Low 3.95 - 5.1 1 m/uL [facility] Work Phone: RBC (Bld) [#/Vol] NOT REPORTED [employer] Phone: Segmented neutrophils/100 WBC (Bld) 69 % High 36 - 65 % [employer] Phone: Segs Absolute 7.88 [employer] Work Phone: WBC (Bld) [#/Vol] 11.3 10*3/uL [facility] Work Phone: WBC (Bld) [#/Vol] NOT REPORTED [employer] Phone: [facility] Work Phone: Basic Metabolic Panel w/ Ref brannon to MGOrdered By: Nicolasa Le on 01-31-2021 Anion gap [Moles/Vol] 17 mmol/L 9 - 17 mmol/L [employer] Phone: Calcium [Mass/Vol] 8.7 mg/dL 8.6 - 10. 4 mg/dL [employer] Phone: Chloride [Moles/Vol] 105 mmol/L 98 - 10 7 mmol/L [employer] Phone: CO2 [Moles/Vol] 15 mmol/L Low 20 - 31 mmol/L [employer] Phone: Creatinine [Mass/Vol] 0.36 mg/dL Low 0.50 - 0.90 mg/dL [employer] Phone: GFR >60 >60 mL/min [employer] Phone: GFR Non- >60 >60 mL/min [employer] Phone: GFR/1.73 sq M.predicted MDRD (S/P/Bld) [Vol rate/Area] [employer] Phone: Comment on above: Average GFR for 30-3 9 years old: 107 mL/min/1.73sq m Chronic Kidney Disease: <60 mL/min/1.73sq m Kidney failure: <15 mL/min/1.73sq m eGFR calculated using average adult body mass. Additional eGFR calculator available at: http://www.[employer]/multiple_crcl_2012.htm GFR/1.73 sq M.predicted MDRD (S/P/Bld) [Vol rate/Area] NOT REPORTED [employer] [facility] Phone: Glucose [Mass/Vol] 78 mg/dL 70 - 99 mg/dL [employer] Phone: Interpretation and review of laboratory results Abnormal [employer] Phone: Potassium [Moles/Vol] 3.8 mmol/L 3.7 - 5.3 mmol/L [employer] Phone: Sodium [Moles/Vol] 137 mmol/L 135 - 144 mmol/L [employer] Phone: Urea nitrogen (BldV) [Mass/Vol] 3 mg/dL Low 6 - 20 mg/dL [employer] Phone: Urea nitrogen/Creatinine (Bld) [Mass ratio] NOT REPORTED [employer] Phone: [employer] Phone: CBC auto differentialOrdered By: Nicolasa Le on 01-31-2021 [employer] # 0.30 [employer] Work Phone: Absolute Immature Granulocyte 0.15 [employer] Work Phone: Absolute Lymph # 2.10 [employer] [facility] Work Phone: Absolute [place] # 2.25 High [employer]ches Fashiony Hea [facility] Work Phone: Basophils (Bld) [#/Vol] 0.00 10*3/uL [employer] Work Phone: Basophils/100 WBC (Bld) 0 % 0 - 2 % [facility] Work Phone: Differential Type NOT REPORTED [facility] Work Phone: Eosinophils/100 WBC (Bld) 2 % 1 - 4 % [employer] Phone: Hematocrit (Bld) [Volume fraction] 35.7 % Low 36.3 - 47.1 % [employer] Phone: Hemoglobin.gastrointe stinal spec 1 Ql (Stl) 10.8 g/dL Low 11.9 - 15.1 g/dL [facility] Work Phone: Immature granulocytes/100 WBC (Bld) 1 % High 0 [employer] Work Phone: Interpretation and review of laboratory results Abnormal [employer] Phone: Lymphocytes/100 WBC (Bld) 14 % Low 24 - 43 % [employer] Work Phone: MCH (RBC) [Entitic mass] 29.9 pg 25.2 - 33.5 pg [facility] Work Phone: MCHC (RBC) [Mass/Vol] 30.3 g/dL 28.4 - 34.8 g/dL [employer] Phone: MCV (RBC) [Entitic vol] 98.9 fL 82.6 - 102.9 fL [employer] Phone: Monocytes/100 WBC (Bld) 15 % High 3 - 12 % [employer] Work Phone: Morphology Celso (Bld) [Interp] Normal [facility] Work Phone: NRBC Automated 0.0 0.0 per 100 WBC [facility] Work Phone: Platelet distribution width (Bld) [Ratio] 13.5 % 11.8 - 14.4 % [employer] Work Phone: Platelet Estimate NOT REPORTED [facility] Work Phone: Platelet mean volume (Bld) [Entitic vol] 11.6 fL 8.1 - 13.5 fL [employer] Work Phone: Platelets (Bld) [#/Vol] 375 10*3/uL [employer] Work Phone: RBC (Bld) [#/Vol] 3.61 10*6/uL Low 3.95 - 5.1 1 m/uL [facility] Work Phone: RBC (Bld) [#/Vol] NOT REPORTED [employer] Work Phone: Segmented neutrophils/100 WBC (Bld) 68 % High 36 - 65 % [employer] Work Phone: Segs Absolute 10.20 High [employer] Work Phone: WBC (Bld) [#/Vol] 15.0 10*3/uL High [employer] Work Phone: WBC (Bld) [#/Vol] NOT REPORTED [facility] Work Phone: [facility] Work Phone: CBC Auto DifferentialOrdered By: David Nash on 01-30-2021 [employer] # 0.21 [employer] Work Phone: Absolute Immature Granulocyte 0.04 [facility] Work Phone: Absolute Lymph # 1.88 [employer] [facility] Work Phone: Absolute [place] # 1.43 High [employer] Hea lt Work Phone: Basophils (Bld) [#/Vol] 0.04 10*3/uL [employer] Phone: Basophils/100 WBC (Bld) 0 % 0 - 2 % [employer] Phone: Differential Type NOT REPORTED [employer] Phone: Eosinophils/100 WBC (Bld) 2 % 1 - 4 % [employer] Phone: Hematocrit (Bld) [Volume fraction] 36.2 % Low 36.3 - 47.1 % [employer] Phone: Hemoglobin.gastrointe stinal spec 1 Ql (Stl) 11.7 g/dL Low 11.9 - 15.1 g/dL [employer] Phone: Immature granulocytes/100 WBC (Bld) 0 % 0 [employer] Phone: Interpretation and review of laboratory results Abnormal [employer] Phone: Lymphocytes/100 WBC (Bld) 15 % Low 24 - 43 % [employer] Phone: MCH (RBC) [Entitic mass] 30.3 pg 25.2 - 33.5 pg [employer] Phone: MCHC (RBC) [Mass/Vol] 32.3 g/dL 28.4 - 34.8 g/dL [employer] Phone: MCV (RBC) [Entitic vol] 93.8 fL 82.6 - 102.9 fL [employer] Phone: Monocytes/100 WBC (Bld) 12 % 3 - 12 % [employer] Phone: NRBC Automated 0.0 0.0 per 100 WBC [employer] Phone: Platelet distribution width (Bld) [Ratio] 13.2 % 11.8 - 14.4 % [employer] Phone: Platelet Estimate NOT REPORTED [employer] [facility] Phone: Platelet mean volume (Bld) [Entitic vol] 11.6 fL 8.1 - 13.5 fL [employer] Phone: Platelets (Bld) [#/Vol] 414 10*3/uL [employer] Phone: RBC (Bld) [#/Vol] 3.86 10*6/uL Low 3.95 - 5.1 1 m/uL [employer] Phone: RBC (Bld) [#/Vol] NOT REPORTED [employer] [facility] Phone: Segmented neutrophils/100 WBC (Bld) 71 % High 36 - 65 % [facility] Work Phone: Segs Absolute 8.75 High [employer] Work Phone: WBC (Bld) [#/Vol] 12.4 10*3/uL High [facility] Work Phone: WBC (Bld) [#/Vol] NOT REPORTED [employer] Phone: [employer] Phone: CT ABDOMEN PELVIS W IV CONTR [...] anterolisthesis and marked decrease in disc height. [employer] Phone: EXAMINATION: CT OF T HE ABDOMEN [...] height was noted at the L5-S1 disc. [facility] Work Phone: Dario, [facility] Incoming Radiant Results From [employer] - 01/30/2021 12:20 PM EDT EXAMINATION: CT [...] anterolisthesis and marked decrease in disc height. [employer] Phone: [employer] Phone: Comprehensive Metabolic Pane l w/ Reflex to MGOrdered By: David Nash on 01-30-2021 Albumin [Mass/Vol] 3.6 g/dL 3.5 - 5.2 g/dL [employer] [facility] Phone: Albumin/Globulin [Mass ratio] 1.0 {ratio} [employer] [facility] Phone: ALP (Bld) [Catalytic activity/Vol] 107 U/L High 35 - 104 U/L [employer] Phone: ALT [Catalytic activity/Vol] 33 U/L 5 - 33 U/L [employer] Phone: Anion gap [Moles/Vol] 17 mmol/L 9 - 17 mmol/L [employer] Phone: AST [Catalytic activity/Vol] 26 U/L <32 [employer] Phone: Bilirubin [Mass/Vol] 0.25 mg/dL Low 0.3 - 1 .2 mg/dL [employer] [facility] Phone: Calcium [Mass/Vol] 9.5 mg/dL 8.6 - 10. 4 mg/dL [employer] Phone: Chloride [Moles/Vol] 104 mmol/L 98 - 10 7 mmol/L [employer] Phone: CO2 [Moles/Vol] 19 mmol/L Low 20 - 31 mmol/L [employer] Phone: Creatinine [Mass/Vol] 0.47 mg/dL Low 0.50 - 0.90 mg/dL [employer] Phone: Free PSA/Total PSA [Mass fraction] 7.3 g/dL 6.4 - 8.3 g/dL [employer] Phone: GFR >60 >60 mL/min [employer] Phone: GFR Non- >60 >60 mL/min [employer] Phone: Glucose [Mass/Vol] 79 mg/dL 70 - 99 mg/dL [employer] Phone: Interpretation and review of laboratory results Abnormal [employer] Phone: Potassium [Moles/Vol] 3.8 mmol/L 3.7 - 5.3 mmol/L [employer] Phone: Sodium [Moles/Vol] 140 mmol/L 135 - 144 mmol/L [employer] Phone: Urea nitrogen (BldV) [Mass/Vol] 5 mg/dL Low 6 - 20 mg/dL [employer] Phone: Urea nitrogen/Creatinine (Bld) [Mass ratio] 11 [employer] Phone: HCG Qualitative, SerumOrdere d By: Noreen Mckeon on 01-30-2021 hCG Qual Negative NEGATIVE [employer] Phone: Comment on above: Specimens with hCG l evels near the threshold of the test (25 mIU/mL) may give a negative or indeterminate result. In such cases, another test should be performed with a new specimen in 48-72 hours. If early is suspected clinically in this setting, correlation with quantitative serum b-hCG level is suggested. [employer] has confirmed the use of plasma for this test. This has not been cleared or approved by the U.S. Food and Drug Administration. The FDA has determined that such clearance is not necessary. [employer] [facility] Phone: Laboratory - Chemistry and C hemistry - challengeOrdered By: David Nash on 01-30-2021 GFR/1.73 sq M.predicted MDRD (S/P/Bld) [Vol rate/Area] [employer] Phone: Comment on above: Average GFR for 30-3 9 years old: 107 mL/min/1.73sq m Chronic Kidney Disease: <60 mL/min/1.73sq m Kidney failure: <15 mL/min/1.73sq m eGFR calculated using average adult body mass. Additional eGFR calculator available at: http://www.[employer]/multiple_crcl_2012.htm Stage 1: Some kidney damage normal GFR Stage 2: Mild kidney damage GFR 60-89 Stage 3: Moderate kidney damage GFR 30-59 Stage 4: Severe kidney damage GFR 15-29 Stage 5: Severe kidney damage GFR <15 ESRD - chronic treatment by dialysis or transplant Lactic AcidOrdered By: Beatriz Nash on 01-30-2021 Lactate [Moles/Vol] 0.6 mmol/L 0.5 - 2. 2 mmol/L [employer] Phone: [employer] Phone: LipaseOrdered By: David dalton on 01-30-2021 Lipase [Catalytic activity/Vol] 30 U/L 13 - 60 U/L [facility] Work Phone: Microscopic UrinalysisOrdere d By: David Nash on 01-30-2021 - [facility] Work Phone: Amorphous, UA NOT REPORTED None [facility] Work Phone: Bacteria, UA TRACE Abnormal None [facility] Work Phone: Casts UA NOT REPORTED /LPF [facility] Work Phone: Crystals, UA NOT REPORTED None /HPF [facility] Work Phone: Epithelial Cells UA 2 TO 5 [facility] [employer] Work Phone: Interpretation and review of laboratory results Abnormal [facility] [employer] Work Phone: Mucus, UA NOT REPORTED None [facility] [employer] Work Phone: Other Observations UA NOT REPORTED NOT REQ. M [facility] [employer] Work Phone: RBC, UA 0 TO 2 [facility] [employer] Work Phone: Renal Epithelial, UA NOT REPORTED 0 /HPF [facility] Work Phone: Trichomonas, UA NOT REPORTED None [facility] Work Phone: WBC, UA 2 TO 5 [facility] [employer] Work Phone: Yeast, UA NOT REPORTED None [facility] [employer] Work Phone: [facility] [employer] Work Phone: No Panel InformationOrdered By: David Nash on 01-30-2021 [facility] Work Phone: Protime-INROrdered By: Linda Mckeon on 01-30-2021 INR Coag (Bld) [Relative time] 1.1 {INR} [facility] Work Phone: Comment on above: Therapeutic Range: Moderate Anticoagulant Intensity: INR = 2.0-3.0 High Anticoagulant Intensity: INR = 2.5-3.5 PT Coag (PPP) [Time] 11.4 s [facility] [employer] Work Phone: [facility] [employer] Work Phone: Urinalysis, reflex to micros copicOrdered By: David Nash on 01-30-2021 Bilirubin Urine SMALL Abnormal NEGATIVE [facility] Work Phone: Color, UA YELLOW YELLOW [facility] [employer] Work Phone: Glucose, Ur Negative NEGATIVE [facility] Work Phone: Interpretation and review of laboratory results Abnormal [facility] [employer] Work Phone: Ketones Ql (U) 4+ Abnormal NEGATIVE [facility] Work Phone: Leukocyte esterase Test strip Ql (U) Negative NEGATIVE [facility] [employer] Work Phone: Nitrite, Urine Negative NEGATIVE [facility] Work Phone: pH, UA 5.5 [facility] [employer] Work Phone: Protein, UA Negative NEGATIVE [facility] Work Phone: Specific [place], UA <1.005 Low [facility] [employer] Work Phone: Turbidity UA CLEAR CLEAR [facility] [employer] Work Phone: Urinalysis Comments NOT REPORTED [facility] [employer] Work Phone: Urine Hgb Negative NEGATIVE [facility] [employer] Work Phone: Urobilinogen, Urine Normal Normal [facility] [employer] Work Phone: [facility] [employer] Work Phone: Basic Metabolic PanelOrdered By: Gamaliel Harris on 01-08-2021 Anion gap [Moles/Vol] 11 mmol/L 9 - 17 mmol/L [facility] [employer] Work Phone: Calcium [Mass/Vol] 9.1 mg/dL 8.6 - 10. 4 mg/dL [employer] Phone: Chloride [Moles/Vol] 105 mmol/L 98 - 10 7 mmol/L [facility] Phone: CO2 [Moles/Vol] 23 mmol/L 20 - 31 mmol/L [employer] [facility] Phone: Creatinine [Mass/Vol] 0.57 mg/dL 0.50 - 0.90 mg/dL [employer] [facility] Phone: GFR >60 >60 mL/min [employer] Phone: GFR Non- >60 >60 mL/min [employer] [facility] Phone: GFR/1.73 sq M.predicted MDRD (S/P/Bld) [Vol rate/Area] [employer] [facility] Phone: Comment on above: Average GFR for 30-3 9 years old: 107 mL/min/1.73sq m Chronic Kidney Disease: <60 mL/min/1.73sq m Kidney failure: <15 mL/min/1.73sq m eGFR calculated using average adult body mass. Additional eGFR calculator available at: http://www.[employer]/multiple_crcl_2012.htm GFR/1.73 sq M.predicted MDRD (S/P/Bld) [Vol rate/Area] NOT REPORTED [facility] Phone: Glucose [Mass/Vol] 106 mg/dL High 70 - 99 mg/dL [facility] Phone: Interpretation and review of laboratory results Abnormal [facility] Phone: Potassium [Moles/Vol] 3.7 mmol/L 3.7 - 5.3 mmol/L [employer] Phone: Sodium [Moles/Vol] 139 mmol/L 135 - 144 mmol/L [employer] [facility] Phone: Urea nitrogen (BldV) [Mass/Vol] 7 mg/dL 6 - 20 mg/dL [employer] [facility] Phone: Urea nitrogen/Creatinine (Bld) [Mass ratio] NOT REPORTED [facility] Phone: CBCOrdered By: Gamaliel castillo on 01-08-2021 Hematocrit (Bld) [Volume fraction] 38.0 % 36.3 - 47.1 % [employer] [facility] Phone: Hemoglobin.gastrointe stinal spec 1 Ql (Stl) 12.2 g/dL 11.9 - 15.1 g/dL [facility] Phone: Interpretation and review of laboratory results Abnormal [facility] Phone: MCH (RBC) [Entitic mass] 30.4 pg 25.2 - 33.5 pg [employer] [facility] Phone: MCHC (RBC) [Mass/Vol] 32.1 g/dL 28.4 - 34.8 g/dL [employer] [facility] Phone: MCV (RBC) [Entitic vol] 94.8 fL 82.6 - 102.9 fL [employer] [facility] Phone: NRBC Automated 0.0 0.0 per 100 WBC [employer] [facility] Phone: Platelet distribution width (Bld) [Ratio] 13.5 % 11.8 - 14.4 % [employer] [facility] Phone: Platelet mean volume (Bld) [Entitic vol] 11.4 fL 8.1 - 13.5 fL [employer] [facility] Phone: Platelets (Bld) [#/Vol] 304 10*3/uL [employer] [facility] Phone: RBC (Bld) [#/Vol] 4.01 10*6/uL 3.95 - 5.1 1 m/uL [employer] [facility] Phone: WBC (Bld) [#/Vol] 18.0 10*3/uL High [facility] Phone: FL ESOPHAGRAMOrdered By: Yadi Harris on 01-08-2021 No evidence of postoperative leak. [facility] Phone: EXAMINATION: SINGLE CONTRAST ESOPHAGRAM 01/08/2021 HISTORY: [...] KUB/radiographs to assess progression as clinically warranted. [facility] Phone: Dario, pn Incoming Radiant Results From [employer] - 01/08/2021 12:29 PM EDT EXAMINATION: SINGLE [...] warranted. IMPRESSION: No evidence of postoperative leak. [facility] Phone: Basic Metabolic PanelOrdered By: aGmaliel Harris on 01-07-2021 Anion gap [Moles/Vol] 10 mmol/L 9 - 17 mmol/L [employer] [facility] Phone: Calcium [Mass/Vol] 8.8 mg/dL 8.6 - 10. 4 mg/dL [employer] Phone: Chloride [Moles/Vol] 105 mmol/L 98 - 10 7 mmol/L [employer] [facility] Phone: CO2 [Moles/Vol] 20 mmol/L 20 - 31 mmol/L [employer] [facility] Phone: Creatinine [Mass/Vol] 0.68 mg/dL 0.50 - 0.90 mg/dL [employer] [facility] Phone: GFR >60 >60 mL/min [employer] Phone: GFR Non- >60 >60 mL/min [employer] [facility] Phone: GFR/1.73 sq M.predicted MDRD (S/P/Bld) [Vol rate/Area] [employer] [facility] Phone: Comment on above: Average GFR for 30-3 9 years old: 107 mL/min/1.73sq m Chronic Kidney Disease: <60 mL/min/1.73sq m Kidney failure: <15 mL/min/1.73sq m eGFR calculated using average adult body mass. Additional eGFR calculator available at: http://www.[employer]/multiple_crcl_2012.htm GFR/1.73 sq M.predicted MDRD (S/P/Bld) [Vol rate/Area] NOT REPORTED [facility] Phone: Glucose [Mass/Vol] 215 mg/dL High 70 - 99 mg/dL [employer] [facility] Phone: Interpretation and review of laboratory results Abnormal [facility] Phone: Potassium [Moles/Vol] 4.2 mmol/L 3.7 - 5.3 mmol/L [employer] [facility] Phone: Sodium [Moles/Vol] 135 mmol/L 135 - 144 mmol/L [employer] [facility] Phone: Urea nitrogen (BldV) [Mass/Vol] 14 mg/dL 6 - 20 mg/dL [employer] [facility] Phone: Urea nitrogen/Creatinine (Bld) [Mass ratio] NOT REPORTED [facility] Phone: CBC without DiffOrdered By: Gamaliel Harris on 01-07-2021 Hematocrit (Bld) [Volume fraction] 38.3 % 36.3 - 47.1 % [employer] [facility] Phone: Hemoglobin.gastrointe stinal spec 1 Ql (Stl) 12.5 g/dL 11.9 - 15.1 g/dL [facility] Phone: Interpretation and review of laboratory results Abnormal [facility] Phone: MCH (RBC) [Entitic mass] 30.9 pg 25.2 - 33.5 pg [employer] [facility] Phone: MCHC (RBC) [Mass/Vol] 32.6 g/dL 28.4 - 34.8 g/dL [employer] [facility] Phone: MCV (RBC) [Entitic vol] 94.8 fL 82.6 - 102.9 fL [employer] [facility] Phone: NRBC Automated 0.0 0.0 per 100 WBC [facility] Phone: Platelet distribution width (Bld) [Ratio] 13.4 % 11.8 - 14.4 % [employer] [facility] Phone: Platelet mean volume (Bld) [Entitic vol] 11.2 fL 8.1 - 13.5 fL [employer] [facility] Phone: Platelets (Bld) [#/Vol] 373 10*3/uL [employer] [facility] Phone: RBC (Bld) [#/Vol] 4.04 10*6/uL 3.95 - 5.1 1 m/uL [employer] [facility] Phone: WBC (Bld) [#/Vol] 24.9 10*3/uL High [employer] [facility] Phone: POCT urine pregnancyOrdered By: Gamaliel Harris on 01-07-2021 Beta HCG ( test) Ql (U) Negative NEGATIVE [facility] Phone: Comment on above: Specimens with hCG l evels near the threshold of the test (25 mIU/mL) may give a negative or indeterminate result. In such cases, another test should be performed with a new specimen in 48-72 hours. If early is suspected clinically in this setting, correlation with quantitative serum b-hCG level is suggested. [id number] 01-04-2021 SARS-CoV-2 (COVID-19) RNA JOSÉ MIGUEL+probe Ql (Unsp spec) Normal [facility] Comment on above: Performed By: #### C OVID #### [facility] [address] [place], [place] [id number] Oncology Technician: Wei Reyna MD [id number] [place], [place] [id number] Oncology Technician: Harpal Adair MD SARS-CoV-2 (COVID-19) RNA JOSÉ MIGUEL+probe Ql (Unsp spec) Not detected Normal NOTDET [facility] Comment on above: Result Comment: The [...] this assay. Fact sheet for Healthcare Providers: https://www.fda.gov/media/317044/download Fact sheet for Patients: https://www.fda.gov/media/962542/download METHODOLOGY: RT-PCR Performed By: #### C OVID #### [facility] [address] [place], [place] [id number] Oncology Technician: Wei Reyna MD [facility] [address] [place], [place] [id number] Oncology Technician: Harpal Adair MD [id number] 01-03-2021 SARS-CoV-2 (COVID-19) RNA JOSÉ MIGUEL+probe Ql (Unsp spec) .NASOPHARYNGEAL SWAB Normal [facility] Comment on above: Performed By: #### C OVID #### [facility] [address] [place], [place] [id number] Oncology Technician: Wei Reyna MD [facility] [address] [place], [place] [id number] Oncology Technician: Harpal Adair MD Nicotine, BloodOrdered By: Jose Harris on 12-26-2020 [id number] <2 ng/mL [facility] [employer] Work Phone: Cotinine <2 ng/mL [facility] [employer] Work Phone: Nicotine <2 ng/mL [facility] [employer] Work Phone: Comment on above: (NOTE) Consistent [...] developed and its performance characteristics determined by [facility]. It has not been cleared or approved by the US Food and Drug Administration. This test was performed in a CLIA certified laboratory and is intended for clinical purposes. Performed By: [facility] [address] [place], [place] [id number] Appellate Court Judge: Brissa Bonilla MD EKG 12 LeadOrdered By: Enmanuel Harris on 12-25-2020 Atrial Rate 70 BPM [employer] Phone: P Sterling 20 degrees [employer] Phone: P-R Interval 176 ms [employer] Phone: Q-T Interval 414 ms [employer] Phone: QRS Duration 88 ms [employer] Work Phone: QTc Calculation (Bazett) 447 ms [employer] Phone: R Sterling 7 degrees [employer] Phone: T Sterling 8 degrees [employer] Phone: Ventricular Rate 70 BPM [employer] Work Phone: Normal sinus rhythm Normal ECG No previous ECGs available [facility] Phone: Dario, [employer] Incoming E kg Results From [employer] - 12/25/2020 12:47 PM EDT Normal sinus rhythm Normal ECG No previous ECGs available [facility] Phone: APTTOrdered By: Gamaliel horvath on 12-24-2020 aPTT Coag (Bld) [Time] 23.1 s [facility] Phone: Comment on above: IV Heparin Therapy Range: 48.6-77.8 Basic Metabolic PanelOrdered By: Gamaliel Harris on 12-24-2020 Anion gap [Moles/Vol] 10 mmol/L 9 - 17 mmol/L [employer] [facility] Phone: Calcium [Mass/Vol] 9.4 mg/dL 8.6 - 10. 4 mg/dL [employer] [facility] Phone: Chloride [Moles/Vol] 106 mmol/L 98 - 10 7 mmol/L [employer] [facility] Phone: CO2 [Moles/Vol] 23 mmol/L 20 - 31 mmol/L [employer] [facility] Phone: Creatinine [Mass/Vol] 0.56 mg/dL 0.50 - 0.90 mg/dL [employer] [facility] Phone: GFR >60 >60 mL/min [employer] Phone: GFR Non- >60 >60 mL/min [facility] Phone: GFR/1.73 sq M.predicted MDRD (S/P/Bld) [Vol rate/Area] [facility] Phone: Comment on above: Average GFR for 30-3 9 years old: 107 mL/min/1.73sq m Chronic Kidney Disease: <60 mL/min/1.73sq m Kidney failure: <15 mL/min/1.73sq m eGFR calculated using average adult body mass. Additional eGFR calculator available at: http://www.[employer]/multiple_crcl_2012.htm GFR/1.73 sq M.predicted MDRD (S/P/Bld) [Vol rate/Area] NOT REPORTED [facility] Phone: Glucose [Mass/Vol] 86 mg/dL 70 - 99 mg/dL [employer] [facility] Phone: Potassium [Moles/Vol] 3.8 mmol/L 3.7 - 5.3 mmol/L [employer] [facility] Phone: Sodium [Moles/Vol] 139 mmol/L 135 - 144 mmol/L [employer] [facility] Phone: Urea nitrogen (BldV) [Mass/Vol] 12 mg/dL 6 - 20 mg/dL [employer] [facility] Phone: Urea nitrogen/Creatinine (Bld) [Mass ratio] NOT REPORTED [facility] Phone: CBCOrdered By: Gamaliel castillo on 12-24-2020 Hematocrit (Bld) [Volume fraction] 41.2 % 36.3 - 47.1 % [employer] [facility] Phone: Hemoglobin.gastrointe stinal spec 1 Ql (Stl) 13.4 g/dL 11.9 - 15.1 g/dL [employer] [facility] Phone: MCH (RBC) [Entitic mass] 30.5 pg 25.2 - 33.5 pg [employer] [facility] Phone: MCHC (RBC) [Mass/Vol] 32.5 g/dL 28.4 - 34.8 g/dL [employer] Phone: MCV (RBC) [Entitic vol] 93.6 fL 82.6 - 102.9 fL [employer] [facility] Phone: NRBC Automated 0.0 0.0 per 100 WBC [employer] [facility] Phone: Platelet distribution width (Bld) [Ratio] 13.2 % 11.8 - 14.4 % [employer] Phone: Platelet mean volume (Bld) [Entitic vol] 10.7 fL 8.1 - 13.5 fL [employer] Phone: Platelets (Bld) [#/Vol] 391 10*3/uL [employer] [facility] Phone: RBC (Bld) [#/Vol] 4.40 10*6/uL 3.95 - 5.1 1 m/uL [employer] Phone: WBC (Bld) [#/Vol] 8.5 10*3/uL [employer] Phone: Protime-INROrdered By: Enmanuel Harris on 12-24-2020 INR Coag (Bld) [Relative time] 0.9 {INR} [employer] [facility] Phone: Comment on above: Therapeutic Range: Moderate Anticoagulant Intensity: INR = 2.0-3.0 High Anticoagulant Intensity: INR = 2.5-3.5 PT Coag (PPP) [Time] 10 s [employer] Phone: XR CHEST (2 VW)on 12-24-2020 No acute cardiopulmo nary findings [employer] [facility] Phone: EXAMINATION: TWO XRA Y VIEWS OF THE CHEST 12/24/2020 11:24 am COMPARISON: None. HISTORY: ORDERING SYSTEM PROVIDED HISTORY: preop gastric bypass [employer] TECHNOLOGIST PROVIDED HISTORY: preop gastric bypass [employer] Reason for Exam: no chest complaints FINDINGS: Normal cardiopericardial silhouette There are no significant mediastinal, pleural, parenchymal or osseous findings [facility] Phone: Dario, Mhpn Incoming Radiant Results From [facility] - 12/24/2020 11:30 AM EDT EXAMINATION: TWO XRAY VIEWS OF THE CHEST 12/24/2020 11:24 am COMPARISON: None. HISTORY: ORDERING SYSTEM PROVIDED HISTORY: preop gastric bypass [employer] TECHNOLOGIST PROVIDED HISTORY: preop gastric bypass Tian [employer] Reason for Exam: no chest complaints FINDINGS: Normal cardiopericardial silhouette There are no significant mediastinal, pleural, parenchymal or osseous findings IMPRESSION: No acute cardiopulmonary findings [facility] Phone: XR CHEST (2 VW)Ordered By: Jose Harris on 12-24-2020 No acute cardiopulmo nary findings [facility] Phone: EXAMINATION: TWO XRA Y VIEWS OF THE CHEST 12/24/2020 11:24 am COMPARISON: None. HISTORY: ORDERING SYSTEM PROVIDED HISTORY: preop gastric bypass [employer] TECHNOLOGIST PROVIDED HISTORY: preop gastric bypass Tian [employer] Reason for Exam: no chest complaints FINDINGS: Normal cardiopericardial silhouette There are no significant mediastinal, pleural, parenchymal or osseous findings [facility] Phone: Dario, Mhpn Incoming Radiant Results From [facility] - 12/24/2020 11:30 AM EDT EXAMINATION: TWO XRAY VIEWS OF THE CHEST 12/24/2020 11:24 am COMPARISON: None. HISTORY: ORDERING SYSTEM PROVIDED HISTORY: preop gastric bypass [employer] TECHNOLOGIST PROVIDED HISTORY: preop gastric bypass Tian [employer] Reason for Exam: no chest complaints FINDINGS: Normal cardiopericardial silhouette There are no significant mediastinal, pleural, parenchymal or osseous findings IMPRESSION: No acute cardiopulmonary findings [facility] Phone: FL UGI W AIR CONTRASTon 10-15 Intermittent signifi cant spontaneous GE reflux. Otherwise unremarkable double-contrast upper GI and esophagram. [facility] Phone: EXAMINATION: DOUBLE CONTRAST UPPER GI SERIES [...] The duodenal bulb and sweep are normal. [employer] [facility] Phone: Dario, [facility] Incoming Radiant Results From [employer] - 11/01/2020 5:21 PM EST EXAMINATION: DOUBLE [...] Otherwise unremarkable double-contrast upper GI and esophagram. [employer] Phone: COVID-19on 09-25-2020 SARS-CoV-2 [place], [place] SARS-CoV-2 Not Detected Not Detected [place], [place] Comment on above: The specimen is NEGATIVE for SARS-CoV-2, the novel coronavirus associated with COVID-19. A negative result does not rule out COVID-19. Heide SARS-CoV-2 for use on the [employer] is a real-time RT-PCR test intended [...] this assay. Fact sheet for Healthcare Providers: https://www.fda.gov/media/041325/download Fact sheet for Patients: https://www.fda.gov/media/194184/download METHODOLOGY: RT-PCR SARS-CoV-2, [facility] [place], [place] Source .NASOPHARYNGEAL SWAB [place] Vital Signs Date Time Vital Sign Value Performing Clinician Facility 03-08-2024 15:02-0400 Diastolic blood pressure 78 mm[Hg] Alexis Shukla [facility] 03-08-2024 15:02-0400 Heart rate 65 /min Alexis LopezDynadmic [facility] 03-08-2024 15:02-0400 Mean blood pressure 89 mm[Hg] Alexis LopezDynadmic [facility] 03-08-2024 15:02-0400 SaO2% (BldA) [Mass fraction] 100 % Alexis LopezDynadmic [facility] 03-08-2024 15:02-0400 Systolic blood pressure 110 mm[Hg] Alexis Vazquez [facility] 03-08-2024 14:00-0400 SaO2% (BldA) [Mass fraction] 99 % Alexis Vazquez [facility] 03-08-2024 13:37-0400 Body temperature 98.42 [degF] Alexis Vazquez [facility] 03-08-2024 13:37-0400 Diastolic blood pressure 82 mm[Hg] Alexis Vazquez [facility] 03-08-2024 13:37-0400 Heart rate 70 /min Alexis Vazquez [facility] 03-08-2024 13:37-0400 Respiratory rate 18 /min Alexis Lopeze [facility] 03-08-2024 13:37-0400 SaO2% (BldA) [Mass fraction] 100 % Alexis Vazquez [facility] 03-08-2024 13:37-0400 Systolic blood pressure 126 mm[Hg] Alexis Vazquez [facility] 03-08-2024 13:14-0400 Body temperature 98.24 [degF] Alexis Vazquez [facility] 03-08-2024 13:14-0400 Diastolic blood pressure 87 mm[Hg] Alexis Vazquez [facility] 03-08-2024 13:14-0400 Heart rate 67 /min Alexis Vazquez [facility] 03-08-2024 13:14-0400 Respiratory rate 16 /min Alexis Lopeze [facility] 03-08-2024 13:14-0400 Systolic blood pressure 135 mm[Hg] Alexis Shukla [facility] 03-08-2024 08:06-0400 Body height 170.2 cm Elia Baires DO Work Phone: [facility] 03-08-2024 08:06-0400 Body mass index (BMI) [Ratio] 30.9 kg/m2 Elia Baires DO Work Phone: [facility] 03-08-2024 08:06-0400 Body weight 89.5 kg Elia Baires DO Work Phone: [facility] 03-08-2024 08:06-0400 Diastolic blood pressure 72 mm[Hg] Elia Baires DO Work Phone: [facility] 03-08-2024 08:06-0400 Heart rate 82 /min Elia Baires DO Work Phone: [facility] 03-08-2024 08:06-0400 SaO2% (BldA) [Mass fraction] 100 % Elia Baires DO Work Phone: [facility] 03-08-2024 08:06-0400 Systolic blood pressure 114 mm[Hg] Elia Baires DO Work Phone: [facility] 01-04-2024 09:28-0400 Body height 170.2 cm Elia Baires DO Work Phone: [facility] 01-04-2024 09:28-0400 Body mass index (BMI) [Ratio] 31.96 kg/m2 Elia Baires DO Work Phone: [facility] 01-04-2024 09:28-0400 Body weight 92.55 kg Elia Baires DO Work Phone: [facility] 01-04-2024 09:28-0400 Diastolic blood pressure 86 mm[Hg] Elia Baires DO Work Phone: [facility] 01-04-2024 09:28-0400 Heart rate 92 /min Elia Baires DO Work Phone: [facility] 01-04-2024 09:28-0400 SaO2% (BldA) [Mass fraction] 97 % Elia Baires DO Work Phone: [facility] 01-04-2024 09:28-0400 Systolic blood pressure 123 mm[Hg] Eliafredrick Baires DO Work Phone: [facility] 12-31-2023 11:17-0400 Heart rate 76 /min DO Jennie Ames Work Phone: [facility] 12-31-2023 11:14-0400 Body temperature 98.2 [degF] DO Jennie Ames Work Phone: [facility] 12-31-2023 11:14-0400 Diastolic blood pressure 73 mm[Hg] DO Jennie Ames Work Phone: [facility] 12-31-2023 11:14-0400 Respiratory rate 18 /min DO Jennie Ames Work Phone: [facility] 12-31-2023 11:14-0400 SaO2% (BldA) [Mass fraction] 97 % DO Jennie Ames Work Phone: [facility] 12-31-2023 11:14-0400 Systolic blood pressure 138 mm[Hg] DO Jennie Ames Work Phone: [facility] 12-31-2023 11:13-0400 Body height 170.18 cm DO Jennie Ames Work Phone: [facility] 12-31-2023 11:13-0400 Body weight 89.35 kg DO Jennie Ames Work Phone: [facility] 12-24-2023 11:58-0400 Body height 170.18 cm DO Jennie Ames Work Phone: [facility] 12-24-2023 11:58-0400 Body temperature 97.8 [degF] DO Jennie Ames Work Phone: [facility] 12-24-2023 11:58-0400 Body weight 89 kg DO Jennie Ames Work Phone: [facility] 12-24-2023 11:58-0400 Diastolic blood pressure 91 mm[Hg] DO Jennie Ames Work Phone: [facility] 12-24-2023 11:58-0400 Heart rate 85 /min DO Jennie Ames Work Phone: [facility] 12-24-2023 11:58-0400 Respiratory rate 15 /min DO Jennie Ames Work Phone: [facility] 12-24-2023 11:58-0400 SaO2% (BldA) [Mass fraction] 100 % DO Jennie Ames Work Phone: [facility] 12-24-2023 11:58-0400 Systolic blood pressure 137 mm[Hg] DO Jennie Ames Work Phone: [facility] 12-10-2023 12:35-0400 Heart rate 70 /min DO Jennie Ames Work Phone: [facility] 12-10-2023 12:35-0400 Respiratory rate 16 /min DO Jennie Ames Work Phone: [facility] 12-10-2023 12:35-0400 SaO2% (BldA) [Mass fraction] 98 % DO Jennie Ames Work Phone: [facility] 12-10-2023 12:08-0400 Body height 170.18 cm DO Jennie Ames Work Phone: [facility] 12-10-2023 12:08-0400 Body temperature 98 [degF] DO Jennie Ames Work Phone: [facility] 12-10-2023 12:08-0400 Body weight 89.8 kg DO Jennie Ames Work Phone: [facility] 12-10-2023 12:08-0400 Diastolic blood pressure 76 mm[Hg] DO Jennie Ames Work Phone: [facility] 12-10-2023 12:08-0400 Systolic blood pressure 123 mm[Hg] DO Jennie Ames Work Phone: [facility] 09-18-2023 08:49-0500 Diastolic blood pressure 72 mm[Hg] Gamaliel Harris DO Work Phone: [facility] [employer] 09-18-2023 08:49-0500 Heart rate 58 /min Gamaliel Harris DO Work Phone: [facility] [employer] 09-18-2023 08:49-0500 Respiratory rate 18 /min Gamaliel Harris DO Work Phone: [facility] [employer] 09-18-2023 08:49-0500 SaO2% (BldA) [Mass fraction] 100 % Gamaliel Harris DO Work Phone: [facility] [employer] 09-18-2023 08:49-0500 Systolic blood pressure 111 mm[Hg] Gamaliel Harris DO Work Phone: [facility] 09-18-2023 08:24-0500 Body temperature 97.11 [degF] Gamaliel Harris DO Work Phone: [facility] [employer] 09-18-2023 07:23-0500 Body height 170.2 cm Gamaliel Harris DO Work Phone: [facility] [employer] 09-18-2023 07:23-0500 Body mass index (BMI) [Ratio] 31.79 kg/m2 Gamaliel Harris DO Work Phone: [facility] 09-18-2023 07:23-0500 Body weight 92.08 kg Gamaliel Harris DO Work Phone: [facility] [employer] 08-15-2023 13:37-0500 Diastolic blood pressure 69 mm[Hg] DO Jennie Ames Work Phone: [facility] 08-15-2023 13:37-0500 Heart rate 70 /min DO Jennie Ames Work Phone: [facility] 08-15-2023 13:37-0500 Respiratory rate 18 /min DO Jennie Ames Work Phone: [facility] 08-15-2023 13:37-0500 SaO2% (BldA) [Mass fraction] 99 % DO Jennie Ames Work Phone: [facility] 08-15-2023 13:37-0500 Systolic blood pressure 107 mm[Hg] DO Jennie Ames Work Phone: [facility] 08-15-2023 11:29-0500 Body height 170.18 cm DO Jennie Ames Work Phone: [facility] 08-15-2023 11:29-0500 Body temperature 98.2 [degF] DO Jennie Ames Work Phone: [facility] 08-15-2023 11:29-0500 Body weight 86.18 kg DO Jennie Ames Work Phone: [facility] 08-14-2023 16:43-0500 Body height 170.18 cm DO Jennie Ames Work Phone: [facility] 08-14-2023 16:43-0500 Body temperature 98.2 [degF] DO Jennie Ames Work Phone: [facility] 08-14-2023 16:43-0500 Body weight 88.6 kg DO Jennie Ames Work Phone: [facility] 08-14-2023 16:43-0500 Diastolic blood pressure 66 mm[Hg] DO Jennie Ames Work Phone: [facility] 08-14-2023 16:43-0500 Heart rate 80 /min DO Jennie Ames Work Phone: [facility] 08-14-2023 16:43-0500 Respiratory rate 18 /min DO Jennie Ames Work Phone: [facility] 08-14-2023 16:43-0500 SaO2% (BldA) [Mass fraction] 98 % DO Jennie Ames Work Phone: [facility] 08-14-2023 16:43-0500 Systolic blood pressure 118 mm[Hg] DO Jennie Ames Work Phone: [facility] 08-13-2023 11:15-0500 Body height 170.18 cm Imad Asaad Other [employer] [facility] 08-13-2023 11:15-0500 Body mass index (BMI) [Ratio] 30.54 kg/m2 Imad Asaad Other [employer] [facility] 08-13-2023 11:15-0500 Body weight 88.45 kg Imad Asaad Other [employer] [facility] 08-13-2023 11:15-0500 Diastolic blood pressure 84 mm[Hg] Imad Asaad Other [employer] [facility] 08-13-2023 11:15-0500 Systolic blood pressure 133 mm[Hg] Imad Asaad Other [employer] [facility] 07-08-2023 12:05-0400 Body height 170.18 cm Ania Javed Other [employer] [facility] 07-08-2023 12:05-0400 Body mass index (BMI) [Ratio] 30.22 kg/m2 Ania Javed Other [employer] 07-08-2023 12:05-0400 Body temperature 99 [degF] Ania Javed Other [employer] [facility] 07-08-2023 12:05-0400 Body weight 87.54 kg Ania Javed Other [employer] Other 07-08-2023 12:05-0400 Diastolic blood pressure 64 mm[Hg] Ania Javed Other [facility] Other 07-08-2023 12:05-0400 Respiratory rate 19 /min Ania Javed Other [facility] Other 07-08-2023 12:05-0400 SaO2% (BldA) [Mass fraction] 98 % Ania Javed Other [facility] Other 07-08-2023 12:05-0400 Systolic blood pressure 110 mm[Hg] Ania Javed Other [place] [employer] Other 07-03-2023 11:05-0400 Diastolic blood pressure 80 mm[Hg] DO Jennie Ames Work Phone: [facility] 07-03-2023 11:05-0400 Heart rate 78 /min DO Jennie Ames Work Phone: [facility] 07-03-2023 11:05-0400 Respiratory rate 16 /min DO Jennie Ames Work Phone: [facility] 07-03-2023 11:05-0400 SaO2% (BldA) [Mass fraction] 99 % DO Jennie Ames Work Phone: [facility] 07-03-2023 11:05-0400 Systolic blood pressure 119 mm[Hg] DO Jennie Ames Work Phone: [facility] 07-03-2023 10:10-0400 Body height 170.18 cm DO Jennie Ames Work Phone: [facility] 07-03-2023 10:10-0400 Body temperature 98.7 [degF] DO Jennie Ames Work Phone: [facility] 07-03-2023 10:10-0400 Body weight 86.9 kg DO Jennie Ames Work Phone: [facility] 07-02-2023 14:06-0400 Body temperature 98.06 [degF] Bakari Henrik [facility] 07-02-2023 14:06-0400 Diastolic blood pressure 78 mm[Hg] Bakari Henrik [facility] 07-02-2023 14:06-0400 Heart rate 91 /min Bakari Henrik [facility] 07-02-2023 14:06-0400 Respiratory rate 18 /min Bakari Henrik [facility] 07-02-2023 14:06-0400 SaO2% (BldA) [Mass fraction] 100 % Bakari Henrik [facility] 07-02-2023 14:06-0400 Systolic blood pressure 121 mm[Hg] Bakari Henrik [facility] 01-15-2023 13:30-0400 Diastolic blood pressure 85 mm[Hg] Bakari Henrik [facility] 01-15-2023 13:30-0400 Heart rate 71 /min Bakari Henrik [facility] 01-15-2023 13:30-0400 Mean blood pressure 98 mm[Hg] Bakari Henrik [facility] 01-15-2023 13:30-0400 Respiratory rate 18 /min Bakari Henrik [facility] 01-15-2023 13:30-0400 SaO2% (BldA) [Mass fraction] 100 % Bakari Henrik [facility] 01-15-2023 13:30-0400 Systolic blood pressure 125 mm[Hg] Bakari Henrik [facility] 01-15-2023 12:30-0400 Diastolic blood pressure 99 mm[Hg] Bakari Henrik [facility] 01-15-2023 12:30-0400 Heart rate 78 /min Bakari Henrik [facility] 01-15-2023 12:30-0400 Mean blood pressure 107 mm[Hg] Bakari Henrik [facility] 01-15-2023 12:30-0400 Respiratory rate 18 /min Bakari Henrik [facility] 01-15-2023 12:30-0400 SaO2% (BldA) [Mass fraction] 100 % Bakari Henrik [facility] 01-15-2023 12:30-0400 Systolic blood pressure 122 mm[Hg] Bakari Henrik [facility] 01-15-2023 10:50-0400 Body temperature 98.42 [degF] Bakari Henrik [facility] 01-15-2023 10:50-0400 Diastolic blood pressure 74 mm[Hg] Bakari Henrik [facility] 01-15-2023 10:50-0400 Heart rate 77 /min Bakari Henrik [facility] 01-15-2023 10:50-0400 Mean blood pressure 92 mm[Hg] Bakari Henrik [facility] 01-15-2023 10:50-0400 Respiratory rate 17 /min Bakari Henrik [facility] 01-15-2023 10:50-0400 SaO2% (BldA) [Mass fraction] 99 % Bakari Chester [facility] 01-15-2023 10:50-0400 Systolic blood pressure 129 mm[Hg] Bakari Chester [facility] 12-05-2022 13:20-0400 Diastolic blood pressure 74 mm[Hg] Gal Das [facility] 12-05-2022 13:20-0400 Heart rate 58 /min Gal Das [facility] 12-05-2022 13:20-0400 Respiratory rate 18 /min Gal Das [facility] 12-05-2022 13:20-0400 SaO2% (BldA) [Mass fraction] 100 % Gal Das [facility] 12-05-2022 13:20-0400 Systolic blood pressure 110 mm[Hg] Gal Das [facility] 12-05-2022 12:00-0400 Heart rate 54 /min Gal Das [facility] 12-05-2022 12:00-0400 SaO2% (BldA) [Mass fraction] 100 % Gal Das [facility] 12-05-2022 11:59-0400 Diastolic blood pressure 72 mm[Hg] Gal Das [facility] 12-05-2022 11:59-0400 Mean blood pressure 84 mm[Hg] Gal Das [facility] 12-05-2022 11:59-0400 Systolic blood pressure 109 mm[Hg] Gal Das [facility] 12-05-2022 11:53-0400 Body temperature 97.52 [degF] Gal Das [facility] 12-05-2022 11:53-0400 Diastolic blood pressure 73 mm[Hg] Gal Das [facility] 12-05-2022 11:53-0400 Heart rate 59 /min Gal Das [facility] 12-05-2022 11:53-0400 Mean blood pressure 87 mm[Hg] Gal Das [facility] 12-05-2022 11:53-0400 Respiratory rate 14 /min Gal Das [facility] 12-05-2022 11:53-0400 SaO2% (BldA) [Mass fraction] 100 % Gal Das [facility] 12-05-2022 11:53-0400 Systolic blood pressure 115 mm[Hg] Gal Das [facility] 12-05-2022 11:40-0400 Mean blood pressure 80 mm[Hg] Gal Das [facility] 12-05-2022 11:40-0400 Respiratory rate 18 /min Gal Das [facility] 12-05-2022 11:30-0400 Mean blood pressure 90 mm[Hg] Gal Das [facility] 12-05-2022 11:15-0400 Body temperature 97.34 [degF] Gal Das [facility] 12-05-2022 11:10-0400 Respiratory rate 18 /min Gal Das [facility] 12-05-2022 11:05-0400 Respiratory rate 21 /min Gal Das [facility] 12-05-2022 11:00-0400 Respiratory rate 11 /min Gal Das [facility] 12-05-2022 07:15-0400 Mean blood pressure 79 mm[Hg] Gal Das [facility] 12-05-2022 07:15-0400 Body temperature 97.88 [degF] Gal Das [facility] 12-05-2022 07:15-0400 Heart rate 72 /min Gal Das [facility] 12-05-2022 07:12-0400 Mean blood pressure 82 mm[Hg] Gal Das [facility] 11-21-2022 10:44-0500 Diastolic blood pressure 75 mm[Hg] Gal Das [facility] 11-21-2022 10:44-0500 Heart rate 67 /min Gal Das [facility] 11-21-2022 10:44-0500 Mean blood pressure 88 mm[Hg] Gal Das [facility] 11-21-2022 10:44-0500 Systolic blood pressure 112 mm[Hg] Gal Das [facility] 11-21-2022 10:44-0500 Heart rate 71 /min Gal Das [facility] 11-21-2022 10:44-0500 SaO2% (BldA) [Mass fraction] 100 % Gal Das [facility] 11-21-2022 10:43-0500 Diastolic blood pressure 79 mm[Hg] Gal Das [facility] 11-21-2022 10:43-0500 Mean blood pressure 91 mm[Hg] Gal Das [facility] 11-21-2022 10:43-0500 Systolic blood pressure 116 mm[Hg] Gal Das [facility] 11-21-2022 10:43-0500 Respiratory rate 16 /min Gal Das [facility] 11-20-2022 08:09-0500 Body height 170.2 cm Eileen Manzano MD Work Phone: [facility] 11-20-2022 08:09-0500 Body weight 85.73 kg Eileen Manzano MD Work Phone: [facility] 11-20-2022 08:09-0500 Diastolic blood pressure 81 mm[Hg] Eileen Manzano MD Work Phone: [facility] 11-20-2022 08:09-0500 Heart rate 67 /min Eileen Manzano MD Work Phone: [facility] 11-20-2022 08:09-0500 SaO2% (BldA) [Mass fraction] 100 % Eileen Manzano MD Work Phone: [facility] 11-20-2022 08:09-0500 Systolic blood pressure 137 mm[Hg] Eileen Manzano MD Work Phone: [facility] 11-03-2022 12:57-0500 Blood Pressure Location Nakiaarmando Mcqueen [facility] 11-03-2022 12:57-0500 Body temperature 98.24 [degF] Nakia Mcqueen [facility] 11-03-2022 12:57-0500 Diastolic blood pressure 80 mm[Hg] Nakia Mcqueen [facility] 11-03-2022 12:57-0500 Heart rate 85 /min Nakiadestin Mcqueen [facility] 11-03-2022 12:57-0500 SaO2% (BldA) [Mass fraction] 98 % Nakia cMqueen [facility] 11-03-2022 12:57-0500 Systolic blood pressure 104 mm[Hg] Nakia Mcqueen [facility] 09-24-2022 06:57-0500 Blood Pressure Location Aimee Walker [facility] 09-24-2022 06:57-0500 Body temperature 98.24 [degF] Aimee Walker [facility] 09-24-2022 06:57-0500 Diastolic blood pressure 64 mm[Hg] Aimee Walker [facility] 09-24-2022 06:57-0500 Heart rate 77 /min Aimee Walker [facility] 09-24-2022 06:57-0500 SaO2% (BldA) [Mass fraction] 99 % Aimee Walker [facility] 09-24-2022 06:57-0500 Systolic blood pressure 118 mm[Hg] Aimee Walker [facility] 08-22-2022 10:31-0500 Blood Pressure Location [facility] 08-22-2022 10:31-0500 Body temperature 98.06 [degF] Rahul Salinas [facility] 08-22-2022 10:31-0500 Diastolic blood pressure 76 mm[Hg] [facility] 08-22-2022 10:31-0500 Heart rate 95 /min Rahul Rita [facility] 08-22-2022 10:31-0500 SaO2% (BldA) [Mass fraction] 98 % [facility] 08-22-2022 10:31-0500 Systolic blood pressure 110 mm[Hg] Rahul Salinas [facility] 08-19-2022 09:45-0500 Diastolic blood pressure 69 mm[Hg] DO Jennie Ames Work Phone: [facility] 08-19-2022 09:45-0500 Heart rate 82 /min DO Jennie Ames Work Phone: [facility] 08-19-2022 09:45-0500 Respiratory rate 16 /min DO Jennie Ames Work Phone: [facility] 08-19-2022 09:45-0500 SaO2% (BldA) [Mass fraction] 95 % DO Jennie Ames Work Phone: [facility] 08-19-2022 09:45-0500 Systolic blood pressure 104 mm[Hg] DO Jennie Ames Work Phone: [facility] 08-19-2022 07:41-0500 Body height 170.18 cm DO Jennie Ames Work Phone: [facility] 08-19-2022 07:41-0500 Body weight 83.6 kg DO Jennie Ames Work Phone: [facility] 08-18-2022 17:26-0500 Body temperature 98.06 [degF] Alexis Shukla [facility] 08-18-2022 17:26-0500 Diastolic blood pressure 83 mm[Hg] Alexis Shukla [facility] 08-18-2022 17:26-0500 Heart rate 84 /min Alexis Shukla [facility] 08-18-2022 17:26-0500 Respiratory rate 18 /min Alexis Shukla [facility] 08-18-2022 17:26-0500 SaO2% (BldA) [Mass fraction] 98 % Alexis Shukla [facility] 08-18-2022 17:26-0500 Systolic blood pressure 120 mm[Hg] Alexis Shukla [facility] 08-12-2022 15:50-0500 Body temperature 97.9 [degF] DO Jennie Ames Work Phone: [facility] 08-12-2022 15:50-0500 Diastolic blood pressure 83 mm[Hg] DO Jennie Ames Work Phone: [facility] 08-12-2022 15:50-0500 Heart rate 64 /min DO Jennie Ames Work Phone: [facility] 08-12-2022 15:50-0500 Respiratory rate 20 /min DO Jennie Ames Work Phone: [facility] 08-12-2022 15:50-0500 SaO2% (BldA) [Mass fraction] 100 % DO Jennie Ames Work Phone: [facility] 08-12-2022 15:50-0500 Systolic blood pressure 136 mm[Hg] DO Jennie Ames Work Phone: [facility] 08-12-2022 11:00-0500 Body height 170.18 cm DO Jennie Ames Work Phone: [facility] 08-12-2022 06:00-0500 Body weight 88.1 kg DO Jennie Ames Work Phone: [facility] 08-08-2022 10:30-0500 Diastolic blood pressure 76 mm[Hg] Bakari Chester [facility] 08-08-2022 10:30-0500 Heart rate 58 /min Bakari Chester [facility] 08-08-2022 10:30-0500 Mean blood pressure 88 mm[Hg] Bakari Chester [facility] 08-08-2022 10:30-0500 Respiratory rate 20 /min Bakari Henrik [facility] 08-08-2022 10:30-0500 SaO2% (BldA) [Mass fraction] 100 % Bakari Henrik [facility] 08-08-2022 10:30-0500 Systolic blood pressure 112 mm[Hg] Bakari Chester [facility] 08-08-2022 10:00-0500 Diastolic blood pressure 86 mm[Hg] Bakari Hnerik [facility] 08-08-2022 10:00-0500 Heart rate 64 /min Bakarisamuel Chester [facility] 08-08-2022 10:00-0500 Mean blood pressure 97 mm[Hg] Bakari Chester [facility] 08-08-2022 10:00-0500 Systolic blood pressure 120 mm[Hg] Bakari Henrik [facility] 08-08-2022 09:13-0500 gluc 98 mg/dL Bakarisamuel Chester [facility] 08-08-2022 09:13-0500 gluc Bakarisamuel Chester [facility] 08-08-2022 09:06-0500 Body temperature 97.7 [degF] Bakari Chester [facility] 08-08-2022 09:06-0500 Diastolic blood pressure 87 mm[Hg] Bakari Henrik [facility] 08-08-2022 09:06-0500 Heart rate 79 /min Bakari Henrik [facility] 08-08-2022 09:06-0500 Respiratory rate 18 /min Bakari Chester [facility] 08-08-2022 09:06-0500 SaO2% (BldA) [Mass fraction] 100 % Bakari Chester [facility] 08-08-2022 09:06-0500 Systolic blood pressure 127 mm[Hg] Bakari Chester [facility] 07-21-2022 10:50-0500 Blood Pressure Location Aimeeerin Valadezell [facility] 07-21-2022 10:50-0500 Body temperature 97.7 [degF] Aimee Walker [facility] 07-21-2022 10:50-0500 Diastolic blood pressure 72 mm[Hg] Aimee Walker [facility] 07-21-2022 10:50-0500 Heart rate 74 /min Aimee Walker [facility] 07-21-2022 10:50-0500 SaO2% (BldA) [Mass fraction] 99 % Aimee Walker [facility] 07-21-2022 10:50-0500 Systolic blood pressure 128 mm[Hg] Aimee Walker [facility] 05-13-2022 10:09-0400 Diastolic blood pressure 74 mm[Hg] Alexis Rivers [facility] [place] 05-13-2022 10:09-0400 Heart rate 68 /min Alexis Rivers [facility] [place] 05-13-2022 10:09-0400 Systolic blood pressure 112 mm[Hg] Alexis Rivers [facility] [place] 04-21-2022 09:39-0400 Blood Pressure Location Aimee Valadezell [facility] 04-21-2022 09:39-0400 Body temperature 98.24 [degF] Aimee Valadezell [facility] 04-21-2022 09:39-0400 Diastolic blood pressure 72 mm[Hg] Aimee Walker [facility] 04-21-2022 09:39-0400 Heart rate 94 /min Aimeeerin Valadezell [facility] 04-21-2022 09:39-0400 SaO2% (BldA) [Mass fraction] 100 % Aimeeerin Valadezell [facility] 04-21-2022 09:39-0400 Systolic blood pressure 112 mm[Hg] Aimee Walker [facility] 04-20-2022 14:56-0400 Body temperature 98.24 [degF] [facility] 04-20-2022 14:56-0400 Diastolic blood pressure 72 mm[Hg] [facility] 04-20-2022 14:56-0400 Heart rate 69 /min [facility] 04-20-2022 14:56-0400 Respiratory rate 18 /min [facility] 04-20-2022 14:56-0400 SaO2% (BldA) [Mass fraction] 99 % [facility] 04-20-2022 14:56-0400 Systolic blood pressure 111 mm[Hg] [facility] 04-03-2022 19:17-0400 Hourly Rounding Kaylinn Dokken [facility] 04-03-2022 19:17-0400 Promise to Return Kaylinn Dokken [facility] 04-03-2022 19:15-0400 Diastolic blood pressure 71 mm[Hg] Kaylinn Dokken [facility] 04-03-2022 19:15-0400 Heart rate 63 /min Kaylinn Dokken [facility] 04-03-2022 19:15-0400 Mean blood pressure 82 mm[Hg] Kaylinn Dokken [facility] 04-03-2022 19:15-0400 Respiratory rate 18 /min Kaylinn Dokken [facility] 04-03-2022 19:15-0400 SaO2% (BldA) [Mass fraction] 100 % Kaylinn Dokken [facility] 04-03-2022 19:15-0400 Systolic blood pressure 105 mm[Hg] Kaylinn Dokken [facility] 04-03-2022 17:09-0400 Body temperature 98.06 [degF] Kaylinn Dokken [facility] 04-03-2022 17:09-0400 Diastolic blood pressure 83 mm[Hg] Kaylinn Dokken [facility] 04-03-2022 17:09-0400 Heart rate 87 /min Kaylinn Dokken [facility] 04-03-2022 17:09-0400 Respiratory rate 18 /min Kaylinn Dokken [facility] 04-03-2022 17:09-0400 SaO2% (BldA) [Mass fraction] 99 % Larry Baker [facility] 04-03-2022 17:09-0400 Systolic blood pressure 119 mm[Hg] Larry Baker [facility] 02-06-2022 09:06-0400 Blood Pressure Location Aimeeerin Valadezell [facility] 02-06-2022 09:06-0400 Body temperature 97.52 [degF] Aimee Walker [facility] 02-06-2022 09:06-0400 Diastolic blood pressure 72 mm[Hg] Aimee Walker [facility] 02-06-2022 09:06-0400 Heart rate 81 /min Aimee Wlaker [facility] 02-06-2022 09:06-0400 SaO2% (BldA) [Mass fraction] 100 % Aimee Walkre [facility] 02-06-2022 09:06-0400 Systolic blood pressure 130 mm[Hg] Aimee Walker [facility] 01-29-2022 10:31-0400 Blood Pressure Location Aimee Walker [facility] 01-29-2022 10:31-0400 Body temperature 97.16 [degF] Aimee Walker [facility] 01-29-2022 10:31-0400 Diastolic blood pressure 76 mm[Hg] Aimee Walker [facility] 01-29-2022 10:31-0400 Heart rate 94 /min Aimee Walker [facility] 01-29-2022 10:31-0400 SaO2% (BldA) [Mass fraction] 98 % Aimee Walker [facility] 01-29-2022 10:31-0400 Systolic blood pressure 118 mm[Hg] Aimee Walker [facility] 02-01-2021 07:15-0400 Body temperature 97.7 [degF] Berry Lawson MD Work Phone: [facility] Work Phone: 02-01-2021 07:15-0400 Diastolic blood pressure 63 mm[Hg] Berry Lawson MD Work Phone: [facility] Work Phone: 02-01-2021 07:15-0400 Heart rate 82 /min Berry Lawson MD Work Phone: [facility] Work Phone: 02-01-2021 07:15-0400 Respiratory rate 18 /min Berry Lawson MD Work Phone: [facility] Work Phone: 02-01-2021 07:15-0400 SaO2% (BldA) [Mass fraction] 98 % Berry Lawson MD Work Phone: [facility] Work Phone: 02-01-2021 07:15-0400 Systolic blood pressure 110 mm[Hg] Berry Lawson MD Work Phone: [facility] Work Phone: 01-30-2021 16:54-0400 Body height 170.2 cm Berry Lawson MD Work Phone: [facility] Work Phone: 01-30-2021 16:54-0400 Body mass index (BMI) [Ratio] 38.53 kg/m2 Berry Lawson MD Work Phone: [facility] Work Phone: 01-30-2021 16:54-0400 Body weight 111.58 kg Berry Lawson MD Work Phone: [facility] Work Phone: 01-30-2021 14:27-0400 Diastolic blood pressure 66 mm[Hg] David Nash MD Work Phone: [facility] Work Phone: 01-30-2021 14:27-0400 Heart rate 93 /min David Nash MD Work Phone: [facility] Work Phone: 01-30-2021 14:27-0400 Respiratory rate 16 /min David Nash MD Work Phone: [facility] Work Phone: 01-30-2021 14:27-0400 SaO2% (BldA) [Mass fraction] 98 % David Nash MD Work Phone: [facility] Work Phone: 01-30-2021 14:27-0400 Systolic blood pressure 107 mm[Hg] David Nash MD Work Phone: [facility] Work Phone: 01-30-2021 09:51-0400 Body temperature 97.2 [degF] David Nash MD Work Phone: [facility] Work Phone: 01-26-2021 09:00-0400 Body temperature 98.2 [degF] Gamaliel Harris [employer] Work Phone: [facility] Work Phone: 01-26-2021 09:00-0400 Diastolic blood pressure 77 mm[Hg] Gamaliel Harris [employer] Work Phone: [employer] Phone: 01-26-2021 09:00-0400 Heart rate 90 /min Gamaliel Harris [employer] Work Phone: [facility] Work Phone: 01-26-2021 09:00-0400 Respiratory rate 16 /min Gamaliel Harris [employer] Work Phone: [facility] Work Phone: 01-26-2021 09:00-0400 SaO2% (BldA) [Mass fraction] 96 % Gamaliel Harris [employer] Work Phone: [facility] Work Phone: 01-26-2021 09:00-0400 Systolic blood pressure 111 mm[Hg] Gamaliel Harris DO Work Phone: [facility] Work Phone: 01-08-2021 07:35-0400 Body temperature 97.81 [degF] Gamaliel Harris [employer] Work Phone: [employer] Phone: 01-08-2021 07:35-0400 SaO2% (BldA) [Mass fraction] 97 % Gamaliel Harris [employer] Work Phone: [employer] Phone: 01-08-2021 07:29-0400 Diastolic blood pressure 77 mm[Hg] Gamaliel Harris [employer] Work Phone: [facility] [employer] Phone: 01-08-2021 07:29-0400 Heart rate 87 /min Gamaliel Harris [employer] Work Phone: [facility] Work Phone: 01-08-2021 07:29-0400 Respiratory rate 18 /min Gamaliel Harris [employer] Work Phone: [facility] Work Phone: 01-08-2021 07:29-0400 Systolic blood pressure 123 mm[Hg] Gamaliel Harris [employer] Work Phone: [facility] Phone: 01-07-2021 06:29-0400 Body height 170.2 cm Gamaliel Harris Spor Phone: [facility] Phone: 01-07-2021 06:29-0400 Body mass index (BMI) [Ratio] 40.68 kg/m2 Gamaliel Harris [employer] Work Phone: [facility] Phone: 01-07-2021 06:29-0400 Body weight 117.8 kg Gamaliel Harris [employer] Work Phone: [facility] Phone: 12-24-2020 10:33-0400 Body height 170.2 cm Stvz 2 [facility] Phone: 12-24-2020 10:33-0400 Body mass index (BMI) [Ratio] 42.76 kg/m2 [facility] Phone: 12-24-2020 10:33-0400 Body temperature 97.7 [degF] [facility] 2 [employer] [facility] Phone: 12-24-2020 10:33-0400 Body weight 123.83 kg [facility] 2 [employer] [facility] Phone: 12-24-2020 10:33-0400 Diastolic blood pressure 76 mm[Hg] [facility] 2 [facility] Phone: 12-24-2020 10:33-0400 Heart rate 71 /min [facility] 2 [facility] Phone: 12-24-2020 10:33-0400 Respiratory rate 18 /min [facility] 2 [employer] [facility] Phone: 12-24-2020 10:33-0400 SaO2% (BldA) [Mass fraction] 98 % [facility] [employer] [facility] Phone: 12-24-2020 10:33-0400 Systolic blood pressure 115 mm[Hg] [facility] [employer] Phone: 09-28-2020 08:40-0500 BP Diastolic 75 mm[Hg] [facility] [place] 09-28-2020 08:40-0500 BP Systolic 117 mm[Hg] Gamaliel [place] 09-28-2020 08:40-0500 Pulse (Heart Rate) 84 /min Gamaliel Harris [facility] [place] 09-28-2020 08:40-0500 Pulse Oximetry 100 % Gamaliel Harris [place] 09-28-2020 08:25-0500 Body Temperature 96.8 [degF] Gamaliel [place] 09-28-2020 08:25-0500 Respiratory Rate 23 /min Gamaliel Harris [employer] [place] 09-28-2020 07:07-0500 BMI (Body Mass Index) 45.66 kg/m2 Gamaliel Hraris [facility] 09-28-2020 07:07-0500 Body weight 132.22 kg Gamaliel Harris [place] 09-28-2020 07:07-0500 Height 170.2 cm Gamaliel [place] Encounters Encounter Date Encounter Type Care Provider Facility Start: 03-08-2024 End: 03-08-2024 Emergency department patient visit Alexis Shukla [facility] Start: 03-08-2024 End: 03-08-2024 Subsequent hospital visit by physician Mri [facility] [place] (Lg Bore/1.5t) Radiology MRI Comment on above: 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 ] Start: 03-08-2024 End: 03-08-2024 ambulatory ELIA BAIRES Facility:[facility] Start: 03-08-2024 End: 03-08-2024 Patient encounter procedure [...] encounter status Elia Baires DO Work Phone: [facility] Work Phone: Start: 02-25-2024 End: 02-25-2024 ambulatory ELIA BAIRES Facility:[facility] Start: 01-13-2024 End: 01-14-2024 ambulatory [facility] Start: 01-05-2024 Telephone encounter Elia rob DO Work Phone: [facility] Start: 01-04-2024 End: 01-04-2024 ambulatory ELIA BAIRES Facility:[facility] Start: 01-04-2024 End: 01-04-2024 Patient encounter procedure Elia Baires DO Work Phone: Family Medicine Comment on above: Panic disorder (Prim masoud Dx); Borderline personality disorder (HCC); Bipolar affective disorder in remission (HCC); Chronic alcoholism in remission (HCC); Routine health maintenance Start: 01-04-2024 End: 01-04-2024 Patient encounter status Elia Baires DO Work Phone: [facility] Start: 12-31-2023 End: 12-31-2023 Emergency department patient visit Kenny Javed Facility:[facility] Start: 12-31-2023 End: 12-31-2023 Emergency department patient visit DO Jennie Ames Work Phone: [facility] Work Phone: Start: 12-25-2023 ambulatory SELF REFERRAL Facility: [facility] Start: 12-24-2023 End: 12-24-2023 Emergency department patient visit Jose Maria Nair Facility:[facility] Start: 12-24-2023 End: 12-24-2023 Emergency department patient visit DO Jennie Ames Work Phone: [facility] Work Phone: Start: 2023 ambulatory Otto Larsen Facility:[facility] Start: 12-10-2023 End: 12-10-2023 Emergency department patient visit Marii Christiansen Facility:[facility] Start: 12-10-2023 End: 12-10-2023 Emergency department patient visit DO Jennie Ames Work Phone: [facility] Work Phone: Start: 12-09-2023 End: 12-09-2023 ambulatory Jennie Ames Facility:[facility] Start: 12-09-2023 End: 12-09-2023 Patient encounter procedure Jennie Ames [facility] Start: 10-23-2023 End: 10-26-2023 ambulatory [facility]II [facility] Start: 10-12-2023 End: 10-15-2023 ambulatory [facility]ALIEL [facility] Start: 09-18-2023 End: 09-18-2023 ambulatory [facility] Start: 09-18-2023 End: 09-18-2023 Subsequent hospital visit by physician Gamaliel Harris DO Work Phone: [facility] [place] Start: 08-31-2023 End: 09-01-2023 ambulatory LEONELA Fallon CAVAZOSSATHISH Facility:[facility] Start: 08-28-2023 End: 08-28-2023 ambulatory Imad Asaad Other [facility] Other Start: 08-28-2023 Telephone encounter Imad Asaad [employer] Manager [employer] Start: 08-18-2023 End: 08-21-2023 ambulatory [facility] Start: 08-15-2023 End: 08-15-2023 Emergency department patient visit Jennie Ames Facility:[facility] Start: 08-15-2023 End: 08-15-2023 Emergency department patient visit DO Jennie Ladarius Work Phone: [facility] Work Phone: Start: 08-14-2023 End: 08-14-2023 Emergency department patient visit Jennie Ames Facility:[facility] Start: 08-14-2023 End: 08-14-2023 Emergency department patient visit DO Jennie Ames Work Phone: [facility] Work Phone: Start: 08-13-2023 End: 08-13-2023 ambulatory Imad Asaad Other [facility] Other Start: 08-13-2023 Office outpatient ne w 45 minutes Imad Asaad [facility] Start: 08-12-2023 End: 08-15-2023 ambulatory [facility]FLORENCE [facility] Start: 07-30-2023 End: 07-31-2023 ambulatory JENNIE AMES [facility] Start: 07-08-2023 End: 07-08-2023 ambulatory Ania Javed Other [facility] Other Start: 07-08-2023 Office outpatient ne w 20 minutes Ania aJved [facility] Start: 07-03-2023 End: 07-03-2023 Emergency department patient visit Jennie Ames Facility:[facility] Start: 07-03-2023 End: 07-03-2023 Emergency department patient visit DO Jennie Ames Work Phone: [facility] Work Phone: Start: 07-02-2023 End: 07-02-2023 Emergency department patient visit Bakari Chester [facility] Start: 06-10-2023 End: 06-10-2023 ambulatory EILEEN MANZANO Facility:[facility] Start: 06-09-2023 End: 06-09-2023 Emergency department patient visit Alexis Shukla Facility:[facility] Start: 06-03-2023 Refill Eileen Manzano MD Work Phone: Neurology Comment on above: Refill Request Start: 04-13-2023 ambulatory Lindy Keen Facility :[facility] Start: 03-19-2023 End: 03-19-2023 ambulatory ASSISTIVE TECHNOLOGY TRAINER GANESH CORDERO Facility:[facility] Start: 03-19-2023 End: 03-19-2023 Patient encounter procedure GANESH CORDERO [facility] Start: 01-15-2023 End: 01-15-2023 Emergency department patient visit Bakari Chester [facility] Start: 01-02-2023 End: 01-02-2023 Patient encounter procedure Nakia Mcqueen [facility] Start: 12-12-2022 Refill Eileen Manzano MD Work Phone: Neurology Comment on above: Refill Request Start: 12-05-2022 End: 12-05-2022 Admission to same day surgery center Gal Das [facility] Start: 11-21-2022 End: 11-21-2022 Patient encounter procedure Gal Das [facility] Start: 11-20-2022 End: 11-20-2022 ambulatory EILEEN MANZANO Facility:[facility] Start: 11-20-2022 End: 11-20-2022 Patient encounter procedure Eileen Manzano MD Work Phone: Neurology Comment on above: Idiopathic intracran ial hypertension (Primary Dx); Depression, unspecified depression type; Primary hypertension; Hx of gastric bypass; H/O foot surgery Start: 11-03-2022 End: 11-03-2022 Patient encounter procedure Nakia Mcqueen [facility] Start: 10-30-2022 End: 10-30-2022 ambulatory STEFANIE SINGH . Facility: Start: 10-23-2022 End: 10-23-2022 Lab Drop off Gal Ngo Thiago [facility] Start: 10-14-2022 End: 10-14-2022 Patient encounter procedure Rita Loja [facility] Start: 09-24-2022 End: 09-24-2022 Patient encounter procedure Aimee Walker [facility] Start: 08-22-2022 End: 08-22-2022 Patient encounter procedure Rahul Salinas [facility] Start: 08-19-2022 End: 08-19-2022 ambulatory DO Jennie Ames Work Phone: [facility] Work Phone: Start: 08-19-2022 End: 08-19-2022 Patient encounter procedure DO Jennie Ames Work Phone: [facility] Start: 08-18-2022 End: 08-18-2022 ambulatory RAMSES MARTINEZ . Facility:[facility] Start: 08-18-2022 End: 08-18-2022 Emergency department patient visit Alexis Shukla [facility] Start: 08-16-2022 End: 08-16-[address] NEW DREW . Facility:[facility] Start: 08-12-2022 ambulatory Facility:9 0 Start: 08-11-2022 End: 08-12-2022 Evaluation and management of inpatient DO Jennie Ames Work Phone: [facility] Start: 08-11-2022 End: 08-12-2022 observation encounter DO Jennie Ames Work Phone: [facility] Work Phone: Start: 08-11-2022 End: 08-11-[address] WEI PHAM Facility:[facility] Start: 08-08-2022 End: 08-08-2022 Emergency department patient visit Bakari Chester [facility] Start: 07-21-2022 End: 07-21-2022 Patient encounter procedure Aimee Walker [facility] Start: 07-19-2022 End: 07-19-[address] DOCTOR CAMARILLO Facility:[facility] Start: 07-18-2022 Telephone encounter Eduin Mckee Plastic Surgery Comment on above: Appointment Start: 06-12-2022 End: 06-12-[address] CAROLYNE RALPH Facility:[facility] Start: 06-10-2022 End: 06-10-2022 Patient encounter procedure Alexis Rivers [facility] Start: 05-30-2022 End: 05-30-2022 ambulatory GABRIELA CAMARGO Facility:[facility] Start: 05-13-2022 End: 05-13-2022 Patient encounter procedure Alexis Rivers [facility] [place] Start: 04-22-2022 End: 04-22-2022 Patient encounter procedure Aimee Walker [facility] Start: 04-21-2022 End: 04-21-2022 Patient encounter procedure Aimee Walker [facility] Start: 04-20-2022 End: 04-20-2022 Emergency department patient visit Jose Kaurelen [facility] Start: 04-07-2022 End: 04-07-[address] LADY SANCHEZ . Facility:[facility] Start: 04-03-2022 End: 04-03-2022 Emergency department patient visit Larry Baker [facility] Start: 04-03-2022 End: 04-03-2022 Well adult monitoring check done Larry Baker [facility] Start: 02-12-2022 End: 02-12-2022 Patient encounter procedure Amee Gonzalez PA-C Work Phone: Otolaryngology Comment on above: Burning tongue (Prim masoud Dx); Irritation of oral cavity Start: 02-08-2022 End: 02-08-2022 ambulatory STEFANIE SINGH . Facility:[facility] Start: 02-06-2022 End: 02-06-2022 Patient encounter procedure Aimee Walker [facility] Start: 01-30-2022 End: 01-30-2022 ambulatory GABRIELA CAMARGO Facility:[facility] Start: 01-29-2022 End: 01-29-2022 Patient encounter procedure Aimee Walker [facility] Start: 01-27-2022 ambulatory Eduin Mckee MD Work Phone: Plastic Surgery Comment on above: questions Start: 01-10-2022 Telephone encounter Eduin marx MD Work Phone: Plastic Surgery Comment on above: Patient Question; Ap pointment Start: 01-09-2022 End: 01-09-2022 Patient encounter procedure Aimee Walker [facility] Start: 12-27-2021 Telephone encounter Eduin marx MD Work Phone: Plastic Surgery Comment on above: Orders Scheduling Start: 11-16-2021 End: 11-17-[address] WILEY ZABALA Facility:[facility] Start: 02-04-2021 End: 02-06-2021 Subsequent hospital visit by physician [facility] Cat Scan Room [facility] CT Scan Comment on above: Omental infarction ( HCC) Start: 01-30-2021 End: 02-01-2021 Evaluation and management of inpatient Berry Lawson MD Work Phone: [facility] 2C Ortho/Med Surg Comment on above: Surgery, elective (P rimary Dx); Omental infarction (HCC) Start: 01-30-2021 End: 01-30-2021 Emergency department patient visit David Nash MD Work Phone: [facility] ED Comment on above: Generalized abdomina l pain (Primary Dx) Start: 01-26-2021 End: 01-26-2021 Subsequent hospital visit by physician Gamaliel Harris DO Work Phone: [facility] 3C Med Surg Comment on above: Dehydration Start: 01-07-2021 End: 01-08-2021 Evaluation and management of inpatient Gamaliel Harris DO Work Phone: [facility] 2C Ortho/Med Surg Comment on above: Post-op pain (Primar y Dx) Start: 01-03-2021 End: 01-04-2021 ambulatory JENNIE AMES [facility] Start: 01-03-2021 End: 01-03-2021 Patient encounter status Staz Schedule EDGARDO Covid Scre ening Start: 01-03-2021 End: 01-03-2021 Subsequent hospital visit by physician Edgardo Covid Screening Schedule STAYomi Covid Screening Comment on above: Preop testing (Prima ry Dx) Start: 12-24-2020 End: 12-28-2020 Subsequent hospital visit by physician Christiane Salinas Xr [facility] Comment on above: Arrived Start: 11-01-2020 End: 11-03-2020 Subsequent hospital visit by physician Chaitanya Jett Radiologist [facility] Comment on above: Gastroesophageal ref lux [...] Start: 11-01-2015 Patient encounter procedure LINDYPRIYANKA COTE Facility:[facility] Procedures Date Procedure Procedure Detail [...] hagus single contrast study Gamaliel Nirav Alee [employer] Work Phone: Start: 01-08-2021 Basic metabolic pane l calcium total Gamaliel Gastelum Alee [employer] Work Phone: Start: 01-07-2021 Basic metabolic pane l calcium total Gamaliel Gastelum Alee [employer] Work Phone: Start: 01-07-2021 End: 01-07-2021 Laps gstr rstcv px w/byp tian-en-y limb <150 cm Gamaliel Gastelum Alee [employer] Work Phone: Start: 01-07-2021 Urine test visual color cmprsn meths Gamaliel Harris [employer] Work Phone: Start: 12-24-2020 Assay of nicotine Enmanuel mortensen Nirav ChinHarris DO Work Phone: Start: 12-24-2020 Basic metabolic pane l calcium total Gamaliel Gastelum Alee [employer] Work Phone: Start: 12-24-2020 Radiologic exam ches t 2 views Gamaliel Harris Work Phone: Start: 12-24-2020 Ecg routine ecg w/le ast 12 lds trcg only w/o i&r Gamaliel Gastelum Alee [employer] Work Phone: Start: 12-24-2020 EKG REPORT Hpf [...] Visit Annual PCP Team Chronic Disease Visit [facility] Start: 03-08-2025 BP Controlled (<130/80) BP Controlled (<130/80) [facility] Start: 03-08-2025 Urine microalbumin profile DTaP,Tdap,Td Vaccine (1 - Tdap) [facility] Comment on above: Postponed from 12/18/2007 (Declined at t his time) Start: 01-03-2025 Annual PCP Team Chronic Disease Visit Annual PCP Team Chronic Disease Visit [facility] Start: 08-05-2024 End: 08-05-2024 ambulatory [facility] Comment on above: Fhx of pancreatic cancer, Phx of pancrea tic mass Action taken: Marked in OnBase for Schedulers Start: 05-24-2024 End: 05-24-2024 Patient encounter procedure 05/24/2024 11:15 AM EDT Office Visit Endocrinology [address] [place] [address] Austin Leon, CEDRIC.BINDER FIXER [address] [place] [address] Class 1 obesity due to excess calories without serious comorbidity with body ma Endocrinology Comment on above: Class 1 obesity due to excess calories w ithout serious comorbidity with body ma Start: 05-15-2024 Influenza vaccination Influenza Vaccine (Season Ended) [facility] Start: 03-01-2024 End: 03-01-2024 Patient encounter procedure 03/01/2024 11:20 AM EDT Appointment Radiology [address] [place] [address] MRI Panc/[facility] Comment on above: MRI Panc/Tanamy [facility] Start: 01-06-2024 End: 01-06-2024 ambulatory 01/06/2024 8:30 AM EDT Results Only [place] [address] [place] [address] [place] [address] [place] Start: 01-04-2024 End: 04-04-2024 CBC panel - Blood by Automated count COMPLETE BLOOD COUNT Lab Routine Routine health maintenance Expected: 01/04/2024, Expires: 04/04/2024 [facility] Work Phone: Comment on above: Expected: 01/04/2024, Expires: Start: 01-04-2024 End: 04-04-2024 Comprehensive metabolic 2000 panel - Serum or Plasma COMPREHENSIVE METABOLIC PANEL Lab Routine Routine health maintenance Expected: 01/04/2024, Expires: 04/04/2024 [facility] Comment on above: Expected: 01/04/2024, Expires: Start: 01-04-2024 End: 04-04-2024 Hemoglobin A1c in Blood HEMOGLOBIN A1C Lab Routine Routine health maintenance Expected: 01/04/2024, Expires: 04/04/2024 [facility] Comment on above: Expected: 01/04/2024, Expires: Start: 01-04-2024 End: 04-04-2024 Hepatitis C virus Ab [Presence] in Serum HEPATITIS C ANTIBODY IA WITH CONFIRMATION Lab Routine Routine health maintenance Expected: 01/04/2024, Expires: 04/04/2024 [facility] Comment on above: Expected: 01/04/2024, Expires: Start: 01-04-2024 End: 04-04-2024 HIV 1+2 Ab [Presence] in Serum or Plasma by Immunoassay HIV 1/2 COMBO WITH REFLEX TO DIFFERENTIATION Lab Routine Routine health maintenance Expected: 01/04/2024, Expires: 04/04/2024 [facility] Comment on above: Expected: 01/04/2024, Expires: Start: 01-04-2024 End: 04-04-2024 Lipid 1996 panel - Serum or Plasma LIPID PANEL BASIC Lab Routine Routine health maintenance Expected: 01/04/2024, Expires: 04/04/2024 [facility] Comment on above: Expected: 01/04/2024, Expires: Start: 12-10-2023 [facility] Start: 09-18-2023 End: 09-18-2023 Egd transoral biopsy single/multiple EGD BIOPSY Gastroesophageal reflux disease, unspecified whether esophagitis present Obesity (BMI 30-39.9) 09/18/2023 8:14 AM [facility] Start: 05-15-2023 COVID-19 Vaccine ( season) COVID-19 Vaccine ( season) [facility] Start: 05-15-2023 Influenza vaccination Influenza Vaccine (#1) [facility] Start: 04-14-2023 Influenza vaccination Flu vaccine (#1) [facility] Start: 08-19-2022 Cerebrospinal fluid culture [facility] Start: 08-19-2022 End: 08-19-2022 [facility] Start: 08-12-2022 [facility] Start: 08-12-2022 Glucose [Mass/volume] in Cerebral spinal fluid [facility] Start: 08-12-2022 Protein [Mass/volume] in Cerebral spinal fluid [facility] Start: 08-12-2022 [facility] Start: 08-11-2022 Hospital admission [facility] Start: 08-11-2022 Referral to neurologist [facility] Start: 08-11-2022 [facility] Start: 05-15-2022 Influenza vaccination [facility] Start: 09-29-2021 COVID-19 VACCINE (3 - Booster for Pfizer series) COVID-19 VACCINE (3 - Booster for Pfizer series) [facility] Start: 09-14-2021 DEPRESSION ASSESSMENT DEPRESSION ASSESSMENT [facility] Start: 06-24-2021 COVID-19 VACCINE (3 - Booster for Pfizer series) COVID-19 VACCINE (3 - Booster for Pfizer series) [facility] Start: 06-24-2021 Covid-19 Vaccine (3 - Pfizer series) Covid-19 Vaccine (3 - Pfizer series) [facility] Start: 03-06-2021 End: 03-06-2021 Patient encounter procedure 03/06/2021 Office Visit Gamaliel Mistry DO [address] [place] [phone] [facility] Invasive Bariatric Surg Start: 02-20-2021 End: 02-20-2021 Patient encounter procedure 02/20/2021 Office Visit Gamaliel Mistry DO [address] [place] [phone] [facility] Start: 01-18-2021 End: 01-18-2021 Office Visit 01/18/2021 Office Visit Gamaliel Mistry DO [address] [place] [phone] [facility]ariat[facility] Start: 01-07-2021 End: 01-07-2021 Hospital Encounter [facility] Comment on above: XI LAPAROSCOPIC ROBOTIC GASTRIC BYPASS R OUX-EN-Y, LIVER BIOPSY, EGD- GI UNIT SCHEDULED. Start: 01-03-2021 End: 01-03-2021 Office Visit [facility]ariatric Surg Comment on above: Arrived Start: 12-31-2020 End: 12-31-2021 COVID-19 COVID-19 Lab Routine Preop testing Expected: 12/31/2020, Expires: 12/31/2021 [employer] Phone: Comment on above: Expected: 12/31/2020, Expires: Start: 11-21-2020 End: 11-21-2020 Office Visit 11/21/2020 Office Visit Bariatrics Gil Ganesh Isreal, TRANSCRIPTIONIST - BINDER FIXER [address] [facility] [address] [place] [address] [facility] BARIATRIC Part [facility] Start: 11-01-2020 End: 11-01-2020 Appointment 11/01/2020 Appointment Radiology Radiologist, [facility] Start: 10-24-2020 End: 10-24-2020 Office Visit [facility]RIC Part [facility] Start: 09-26-2020 Annual Wellness Visit (AWV) Annual Wellness Visit (AWV) [place] Start: 2018 HPV TESTING HPV TESTING [facility] Start: 2018 Screening for malignant neoplasm of cervix [facility] Start: 2009 PAP TESTING PAP TESTING [facility] Start: 2009 Screening for malignant neoplasm of cervix [facility] Start: 12-18-2007 DTaP/Tdap/Td vaccine (1 - Tdap) DTaP/Tdap/Td vaccine (1 - Tdap) [facility] [employer] [facility] Start: 12-18-2007 Urine microalbumin profile [facility] Start: 2006 ANNUAL PCP TEAM CHRONIC DISEASE VISIT ANNUAL PCP TEAM CHRONIC DISEASE VISIT [facility] Start: 2006 BP CONTROLLED (<130/80) BP CONTROLLED (<130/80) [facility] Start: 2006 HEPATITIS C SCREENING HEPATITIS C SCREENING [facility] Start: 2006 Hepatitis C screening [facility] Start: 2006 HIV SCREENING HIV SCREENING [facility] Start: 2006 HIV screening HIV Screening [facility] Start: 2004 COVID-19 Vaccine (1) COVID-19 Vaccine (1) [employer] Phone: Start: 12-18-2003 HIV screening HIV screen [facility] Start: 2000 Adult depression screening assessment DEPRESSION SCREENING [facility] Start: 2000 COVID-19 Vaccine (1) COVID-19 Vaccine (1) [facility] [employer] Work Phone: Start: 2000 Depression Monitoring Depression Monitoring [facility] [employer] Start: 12-10-2000 Hepatitis B Vaccine (2 of 3 - 3-dose series) Hepatitis B Vaccine (2 of 3 - 3-dose series) [facility] Start: 1994 PNEUMOCOCCAL (1 - PCV) PNEUMOCOCCAL (1 - PCV) [facility] Start: 1994 Pneumococcal 0-64 years Vaccine (1 - PCV) Pneumococcal 0-64 years Vaccine (1 - PCV) [facility] Start: 1994 Pneumococcal vaccination [facility] Start: 1989 Varicella vaccine (1 of 2 - 2-dose childhood series) Varicella vaccine (1 of 2 - 2-dose childhood series) [facility] Start: 1988 HEPATITIS B (1 of 3 - 3-dose series) HEPATITIS B (1 of 3 - 3-dose series) [facility] Start: 1988 Hepatitis B Vaccine (1 of 3 - 3-dose series) Hepatitis B Vaccine (1 of 3 - 3-dose series) [facility] Start: 1988 Hepatitis C screening Hepatitis C screen [facility] [place] [place] Bacteria identified in Unspecified specimen by Aerobe culture [facility] Work Phone: Bacteria identified in Unspecified specimen by Anaerobe culture [facility] Work Phone: Basic Metabolic Pane l w/ Reflex to MG Basic Metabolic Panel w/ Reflex to MG Lab Routine Daily until discontinued starting 02/01/2021, 1 completed [facility] [employer] Work Phone: Comment on above: Daily until discontinued starting 2020, 1 completed End: 09-18-2023 Blood glucose - POCT Blood glucose - POCT Point of Care Testing Routine One Time for 1 Occurrences starting 09/18/2023 until 09/18/2023 [facility] [employer] [facility] Comment on above: One Time for 1 Occurrences starting 01/2024 until 09/18/2023 CANNABINOID CONF, UR CANNABINOID CONF, UR Lab Routine Panic disorder 01/04/2024 10:20 AM EDT [facility] Cell count, cerebrospinal fluid [facility] Work Phone: Cerebrospinal fluid examination [facility] Work Phone: Continuous pulse oximetry Pulse oximetry, continuous Respiratory Care Routine Every 4hr until discontinued starting 01/07/2021 [employer] Work Phone: Comment on above: Every 4hr until discontinued starting End: 10-26-2020 COVID-19 COVID-19 Lab Routine Preoperative testing 1 Occurrences starting 10/26/2020 until 10/26/2020 [employer] Work Phone: Comment on above: 1 Occurrences starting 10/26/2020 until 10/26/2020 COVID-19 [employer] Work Phone: End: 01-03-2021 COVID-19 COVID-19 Lab Routine Preop testing 1 Occurrences starting 01/03/2021 until 01/03/2021 [employer] Work Phone: Comment on above: 1 Occurrences starting 01/03/2021 until 01/03/2021 Evaluation of cerebrospinal fluid [facility] Work Phone: Fluid sample volume measurement [facility] Work Phone: Glucose [Mass/volume ] in Cerebral spinal fluid [facility] Work Phone: End: 09-18-2023 INITIATE PACU OXYGEN THERAPY PROTOCOL Initiate PACU Oxygen Therapy Protocol Respiratory Care Routine Continuous until discontinued starting 09/18/2023 [facility] Comment on above: Continuous until discontinued starting 0 09/18/2023 Meningitis+Encephali ti s pathogens DNA and RNA panel - Cerebral spinal fluid by JOSÉ MIGUEL with non-probe detection [facility] Work Phone: Microscopic observation [Identifier] in Unspecified specimen by Gram stain [facility] Work Phone: End: 04-07-2025 MR Breast - left WO and W contrast IV MRI BREAST BX WO/W IVCON LEFT Radiology Routine Mass of upper outer quadrant of left breast 1 Occurrences starting 03/08/2024 until 04/07/2025 [facility] Work Phone: Comment on above: 1 Occurrences starting 03/08/2024 until 04/07/2025 End: 12-20-2023 Mra head w/o & w/contrast material MRV BRAIN WO/W IVCON Radiology Routine Idiopathic intracranial hypertension 1 Occurrences starting 11/20/2022 until 12/20/2023 [facility] Work Phone: Comment on above: 1 Occurrences starting 11/20/2022 until 12/20/2023 Nebulizer therapy HHN Treatment Respiratory Care Routine TID until discontinued starting 01/07/2021 [employer] Work Phone: Comment on above: TID until discontinued starting 01/08/20 21 Nucleated cells [#/volume] in Cerebral spinal fluid by Manual count [facility] Work Phone: Oxygen therapy [Minimum Data Set] [facility] Comment on above: Daily until discontinued starting 2020 Daily until disconti nued starting 01/07/2021 Daily until disconti nued starting 01/31/2021 Oxygen therapy [Minimum Data Set] Initiate Oxygen Therapy Protocol Respiratory Care Routine As Needed until discontinued starting 09/18/2023 WALKER VERGARA [facility] [employer] Work Phone: Comment on above: As Needed until discontinued starting Patient Education [facility] Work Phone: Patient referral [facility] Work Phone: Phase I & II - meter ed glucose Phase I & II - metered glucose Point of Care Testing Routine As Needed until discontinued starting 09/28/2020 [employer] Comment on above: As Needed until discontinued starting End: 09-28-2020 , urine POCT , urine POCT Point of Care Testing Routine One Time for 1 Occurrences starting 09/28/2020 until 09/28/2020 [facility] Comment on above: One Time for 1 Occurrences starting 09/14 until 09/28/2020 End: 09-18-2023 , urine POCT , urine POCT Point of Care Testing Routine One Time for 1 Occurrences starting 09/18/2023 until 09/18/2023 [facility] Comment on above: One Time for 1 Occurrences starting 01/2024 until 09/18/2023 Protein [Mass/volume ] in Cerebral spinal fluid [facility] Work Phone: Red blood cell count [facility] Work Phone: SPECIMEN VALIDITY, URINE SPECIMEN VALIDITY, URINE Lab Routine Panic disorder 01/04/2024 10:20 AM EDT [facility] Spirometry panel Incentive pete metry Respiratory Care Routine Every 2hr while awake until discontinued starting 01/07/2021 [facility] Work Phone: Comment on above: Every 2hr while awake until discontinued starting 01/07/2021 Surgical Pathology Surgical Path ology Lab Routine Release Upon Ordering for 1 Occurrences starting 09/28/2020 [facility] [place] Comment on above: Release Upon Ordering for 1 Occurrences starting 09/28/2020 [facility] Immunizations Immunization Date Immunization Notes Care Provider Jayme penaloza 04-29-2021 SARS-CoV-2 (COVID-19 ) mRNA BNT-162b2 vax Aimee Walker [facility] 04-08-2021 SARS-CoV-2 (COVID-19 ) mRNA BNT-162b2 vax Aimee Walker [facility] 07-23-2020 influenza virus vaccine, unspecified formulation Eileen Manzano MD Work Phone: [facility] 07-09-2020 influenza nasal, unspecified formulation Elia Baires DO Work Phone: [facility] 07-09-2020 influenza virus vaccine, unspecified formulation Aimee Walker [facility] 07-09-2020 influenza, injectable, quadrivalent, preservative free Elia Baires DO Work Phone: [facility] 11-12-2000 hepatitis B vaccine, pediatric or pediatric/adolescent dosage Elia Mechelle DO Work Phone: [facility] 11-12-2000 measles, mumps and rubella virus vaccine Elia Mechelle DO Work Phone: [facility] NEGATED: Highlighted row has not occurred!07-21-2022 influenza virus vaccine, unspecified formulation Aimee Walker [facility] Payers Date Payer Category Payer Unknown 2023 Medicare [id number] 2021 Medicaid MEDICAID [facility] MEDICAID [id number] 2021-Present [phone] [address] [place] [address] Medicaid [id number] 2021 Medicaid [id number] .[id number] 2021 Medicare HUMANA MEDICARE HUMANA MEDICARE PPO [id number] 2021-Present [phone] [address] [address] [place] [address] PPO [id number] .[id number] 2021 Medicare [id number]. 1.13.159.2.7 .[id number] 2020 Medicare [id number] 1.2.840.510728.1.13.239.2.7 .3.401788.315 1988 Unknown [id number] 2.16.840.1.285023.3.579.2.7 32 1988 Unknown [id number] 2.16.840.1.630685.3.579.2.1 77 1988 Unknown [id number] 2.16.840.1.520053.3.579.2.3 56 1988 Unknown [id number] 2.16.840.1.917808.3.579.2.5 93 1988 Unknown [id number] 2.16.840.1.576610.3.579.2.5 93 1988 Unknown [id number] 2.16.840.1.787758.3.579.2.5 93 1988 Unknown [id number] 2.16.840.1.179080.3.579.2.5 93 1988 Unknown [id number] 2.16.840.1.694537.3.579.2.5 93 1988 Unknown [id number] 2.16.840.1.080890.3.579.2.5 93 1988 Unknown [id number] 2.16.840.1.151530.3.579.2.5 93 1988 Unknown [id number] 2.16.840.1.647366.3.579.2.5 93 1988 Unknown [id number] 2.16.840.1.351462.3.579.2.5 93 1988 Unknown [id number] 2.16.840.1.925899.3.579.2.5 93 1988 Unknown [id number] 2.16.840.1.879998.3.579.2.5 93 1988 Unknown [id number] 2.16.840.1.921900.3.579.2.1 73 1988 Unknown [id number] 2.16.840.1.556954.3.579.2.1 73 1988 Unknown [id number] 2.16.840.1.835860.3.579.2.1 74 1988 Unknown [id number] 2.16.840.1.933952.3.579.2.1 74 1988 Unknown [id number] 2.16.840.1.527694.3.579.2.1 74 1988 Unknown [id number] 2.16.840.1.292657.3.579.2.1 75 1988 Unknown [id number] 2.16.840.1.555474.3.579.2.1 75 1988 Unknown [id number] 2.16.840.1.158474.3.579.2.7 27 1988 Unknown [id number] 2.16.840.1.195579.3.579.2.7 27 1988 Unknown [id number] 2.16.840.1.761511.3.579.2.7 27 1988 Unknown [id number] 2.16.840.1.105824.3.579.2.7 27 1988 Unknown [id number] 2.16.840.1.536860.3.579.2.7 27 1988 Unknown [id number] 2.16.840.1.379651.3.579.2.7 27 1959 Medicaid [id number] 1.2.840.563186.1.13.239.2.7 .3.484717.315 1959 Private Health Insurance [id number] 1959 Self-pay [id number] Medicare Medicare [id number] Private Health Insurance Aetna MCR PFFS M [id number] Unknown [id number] 2.16.840.1.091581.3.579.2.5 31 Unknown [id number] 2.16.840.1.096422.3.579.2.5 31 Unknown [id number] 2.16.840.1.971589.3.579.2.5 31 Unknown [id number] 2.16.840.1.602372.3.579.2.5 31 Unknown [id number] 2.16.840.1.994991.3.579.2.5 31 Unknown [id number] 2.16.840.1.475706.3.579.2.5 31 Unknown [id number] 2.16.840.1.642996.3.579.2.5 31 Social History Date Type Detail Facility Start: 09-28-2020 End: 01-29-2022 Tobacco smoking status NHIS Former smoker [place] Start: 08-12-2022 End: 12-31-2023 History of tobacco use Current smoker [place] Start: 09-28-2020 End: 03-08-2024 Tobacco use and exposure Never used [place] Start: 09-28-2020 End: 03-08-2024 Alcohol intake Current drinker of alcohol (finding) [place] Start: 09-28-2020 End: 07-03-2022 History SDOH Alcohol Frequency 1 [place] Start: 09-28-2020 Alcohol Comment rare [place] Start: 1990 Sex Assigned At Not on file [place] Start: 12-16-2021 End: 02-06-2022 Exposure to SARS-CoV-2 (event) Not sure [place] End: 03-14-2020 History of tobacco use Cigarette Smoker [facility] Phone: Start: 09-28-2020 Alcohol Comment rare [facility] Phone: Start: 12-26-2021 End: 03-08-2024 Tobacco smoking status NHIS Smokes tobacco daily [facility] Start: 12-26-2021 End: 02-27-2023 Cigarettes smoked current (pack per day) - Reported 1 [facility] Start: 03-18-2010 History SDOH Alcohol Comment beer and wine once a month [facility] Start: 07-01-2021 End: 11-03-2022 Tobacco smoking status Heavy tobacco smoker (finding) [facility] Start: 07-03-2022 End: 02-27-2023 Sex Assigned At Female [facility] Start: 1990 Sex Assigned At Female [facility] Start: 07-03-2022 History SDOH Alcohol Frequency 5 [facility] Start: 07-03-2022 History SDOH Alcohol Std Drinks 4 [facility] Start: 07-03-2022 History SDOH Social Connections Get Together 2 [facility] Start: 07-03-2022 History SDOH Social Connections Living 3 [facility] Do you belong to any clubs or organizations such as jew groups, unions, fraternal or athletic groups, or school groups? No [facility] Are you now , , , , never or living with a partner? [facility] How often to you hav e a drink containing alcohol? 4 or more times a week [facility] How many standard dr inks containing alcohol do you have on a typical day? 7 to 9 [facility] How often do you hav e 6 or more drinks on 1 occasion? Daily or almost daily [facility] How hard is it for y ou to pay for the very basics like food, housing, medical care, and heating Not very hard [facility] Do you feel stress - tense, restless, nervous, or anxious, or unable to sleep at night because your mind is troubled all the time - these days [OSQ] To some extent [facility] (I/We) worried iqra er (my/our) food would run out before (I/we) got money to buy more. Sometimes true [facility] The food that (I/we) bought just didn't last, and (I/we) didn't have money to get more. Never true [facility] Start: 01-13-2022 Gender identity Identifies as female gender (finding) [facility] Start: 02-06-2022 Sexual orientation Heterosexual (finding) [facility] How often to you hav e a drink containing alcohol? [facility] [employer] [facility] Start: 12-10-2023 Tobacco smoking status NHIS Never smoked tobacco (finding) [facility] Do you feel stress - tense, restless, nervous, or anxious, or unable to sleep at night because your mind is troubled all the time - these days [OSQ] Only a little [facility] Functional Status Date Assessment Result Facility 03-08-2024 Functional Status N/A [facility] 07-02-2023 Functional Status N/A [facility] 01-15-2023 Functional Status N/A [facility] 11-21-2022 Functional Status No [facility] 11-03-2022 Functional Status N/A [facility] 09-24-2022 Functional Status N/A [facility] 08-22-2022 Functional Status N/A [facility] 08-18-2022 Functional Status N/A [facility] 08-12-2022 Functional status Patient at Baseline [facility] Work Phone: 08-08-2022 Functional Status N/A [facility] 07-21-2022 Functional Status N/A [facility] 04-21-2022 Functional Status N/A [facility] 04-20-2022 Functional Status N/A [facility] 04-03-2022 Functional Status N/A [facility] Mental Status Date Assessment Result Facility 08-12-2022 Cognitive function Cognitive Sta tus Patient at Baseline [facility] Work Phone: Clinical Notes 12-24-2020 to 03-08-2024 Sofia Benavidez, RN - 03/08/2024 10:00 AM Mirlande Long, health data analyst - 03/08/2024 10:00 AM EDTPatient InstructionsElia Baires, [...] Follow these instructions at home: Medicines Take qxra-add-oxqurny and prescription medicines only as told by your health care provider. Ask your health care provider if the medicine prescribed to you: ?Requires you to avoid driving or using heavy machinery. ?Can cause constipation. You may need to take these actions to prevent or treat constipation: ?Drink enough fluid to keep your urine pale yellow. ?Take vqij-ngc-qcugkgq or prescription medicines. ?Eat foods that are [...] provider. Document Revised: 12/08/2022 Document Reviewed: 01/24/2020 [employer] Education 2022 [employer]. 03/08/2024 15:36:59 Head Injury, Adult Head Injury, [...] Ask your health care provider for a gcvs-ak-nxme plan for gradually returning to activities. Ask [...] your friends, family, a trusted colleague, and shop worker about your injury, symptoms, and restrictions. Have them watch for any new or worsening problems. General instructions Take ukee-qiv-wyyzaam and prescription medicines only as told by [...] provider. Document Revised: 07/13/2020 Document Reviewed: 07/13/2020 [employer] Patient Education 2022 [employer] 03/08/2024 15:36:59 Muscle Strain Muscle Strain [...] is not too tight. General instructions Take ahdy-jbd-sulczkf and prescription medicines only as told by [...] provider. Document Revised: 11/18/2021 Document Reviewed: 11/18/2021 [employer] Patient Education 2022 [employer]. Follow Up Care 03/08/2024 13:07:25 With:David Zazueta Address: [address], [address] [place] [address]- [phone] Business (1) When:03/11/2024 15:24:14 With:Jennie Ames Address: [address], [facility] [address] [place] [address]- Business (1) When:Within 3 Day(s) [facility] 03-08-2024 History of Present illness Narrative [...] PATIENT PRESENTS WITH AN IMPLANTABLE OR ATTACHED MODELING DIRECTOR: No RADIOLOGY DEPARTMENT: MR; Exam(s) Completed: Body: Pancreas/Biliary PERIPHERAL IV DATA: Site assessment: Clean,Dry and Intact, Site disposition Discontinued SIGNED BY: KING Tovar March 08, 2024 10:35 AM documented in this encounter [facility] 03-08-2024 Note HNO ID: [id number] Author: MIRLANDE DIAZ MRI Tech Service: Radiology Author Type: Supervisor Agency Appointments Type: Progress Notes Filed: 03/08/2024 10:36 Note [...] PATIENT PRESENTS WITH AN IMPLANTABLE OR ATTACHED MODELING DIRECTOR: No RADIOLOGY DEPARTMENT: MR; Exam(s) Completed: Body: Pancreas/Biliary PERIPHERAL IV DATA: Site assessment: Clean,Dry and Intact, Site disposition Discontinued SIGNED BY: KING Tovar March 08, 2024 10:35 AM [facility] 03-08-2024 Note HNO ID: [id number] Author: SOFIA BENAVIDEZ RN Service: Nursing Author [...] DATE: March 08, 2024 TIME: 10:01 AM [facility] 03-08-2024 Instructions Elia Baires DO - 03/08/2024 8:47 AM EDT 1) Schedule appointment with Austin Mata to discuss Adipex. 2) Schedule MRI of breast 3) I can refill the klonopin as needed. 4) Try steroid as needed twice daily 5) Follow-up in [address] Villafana to establish care documented in this encounter [facility] 03-08-2024 Note HNO ID: [id number] Author: ELIA BAIRES DO Service: ? Author [...] was able to establish with psychiatry at [facility]. Says they stopped her Rexulti and switch to Lamictal 75 mg daily. Says this has dramatically improved her symptoms. Currently taking duloxetine 60 mg twice daily and trazodone 50 mg at bedtime. She says that she has only needed to use her clonazepam a few times a week. H (more content not included)... [facility] 03-08-2024 History of Present illness Narrative ASSESSMENT/PLAN: [...] was able to establish with psychiatry at [facility]. Says they stopped her Rexulti and [...] updated today in the History tab of [employer]. REVIEW OF SYSTEMS: All other reviewed and [...] Elia Baires DO documented in this encounter [facility] 01-04-2024 Instructions Elia Baires DO - 01/04/2024 10:16 AM EDT 1) Give urine sample today. 2) Placed lab orders. Fast for 12 hours then get labs. 3) I would follow-up with your psychiatrist in January 4) Physical in 1-2 months. documented in this encounter [facility] 01-04-2024 Note HNO ID: [id number] Author: ELIA BAIRES DO Service: ? Author [...] She says that she is originally from [facility] however came up to here today [...] to establish with a new psychiatrist at [facility] in [place]. She also sees a counselor weekly. Current [...] psychosis or maryam. Dr. Elia Baires, DO [facility] 01-04-2024 History of Present illness Narrative ASSESSMENT/PLAN: [...] She says that she is originally from [facility] however came up to here today [...] to establish with a new psychiatrist at [facility] in [place]. She also sees a counselor weekly. Current [...] Elia Baires DO documented in this encounter [facility] 09-18-2023 Hospital Discharge instructions Gamaliel Harris DO [...] Management center at documented in this encounter [facility] 09-16-2023 History of Present illness Narrative PAT phone call for /EGD completed with pt. Date/time/location (entrance C) of surgery/procedure verified with pt. NPO after MN status verified with pt. Need for pick up and delivery driver ( ) verified with pt. Instructed pt to take a shower the AM of surgery/procedure and to avoid lotions, creams, jewelry. Encouraged pt to avoid artificial nails and/or nailpolish. Instructed pt to take BP meds with a small sip of water prior to procedure/surgery. documented in this encounter [facility] 09-15-2023 Note HNO ID: [id number] Author: Rahul Godinez DO Service: ? Author Type: Fellow Type: Progress Notes Filed: 09/15/2023 12:00 PM Note Text: [facility] Multidisciplinary Likggm-Bxehdvvfq-Oporymu AND Upper GI Case Conference -- Consensus Note -- Conference Date: 09/15/2023 Case reviewed with physicians from GI, Surgery, AND Radiology services: -- Surgeons - Cristal Rodriguez Augustin, Naffouje, Visioni, and Gaurang -- Gastroenterologists - Brando Sinclair -- Radiologist - [place] Issue(s) Question(s): 32 year old female with [...] 6 months DO ISATU Moser Surgical Fellow [facility] 08-13-2023 Evaluation note Encounter Date Diagnosis Assessment Notes Jul, Pancreatic cyst (ICD-10 - K86.2) [facility] 10-25-2023 Evaluation note* Encounter Date Diagnosis [...] stop smoking. Jun, Smoker (ICD-10 - F17.200) [facility] 09-27-2023 NoteHNO ID: [id number] Author: Eileen Manzano MD Service: ? Author Type: Physician Type: Progress Notes Filed: 06/10/2023 3:39 PM Note Text: [facility] Follow Up / Established Virtual Visit I have communicated my name and active licensure. The patient's identity and physical location were verified at the time of this visit. Either the patient or their legal territory account representative has been informed of the risks [...] due to congenital deformity, seen in the [facility] for: Idiopathic [...] due to congenital deformity, seen in the [facility] for: 1. [...] she agreed. She needs to follow with director of officiating every 6 months. In some patients with [...] her eyes. She has never seen an director of officiating. CSF protein 24, Glu 55, Pro 28, [...] cognition, memory, speech. Cr (more content not included)...[id number] Miscellaneous Notes * Telephone Encounter - Bunny [...] A DAY IN A WEEK Pharmacy Name: [facility] Pharm[facility] Phone #: [phone] Fabby Cassidy [facility] Evaluation + Plan note Diagnostic Tests Pending * Zinc Level 03/19/23 * PTH Intact 03/19/23 * Vitamin A Level 03/19/23 * Vitamin B1 03/19/23 Future Scheduled Tests Laboratory* CBC w/ Auto Diff 07/21/22 Radiology* MA Mamm Screen w/CAD if perf and 3D Tan[place] 04/21/22 [facility]05-04-2023 Hospital Discharge instructions Patient Education 01/15/2023 [...] Follow these instructions at home: Medicines Take blyi-vrc-cewkmaz and prescription medicines only as told by [...] provider. Document Revised: 11/14/2021 Document Reviewed: 11/14/2021 [employer] Patient Education 2022 [employer]. Follow Up Care 01/15/2023 10:48:45 With:Jennie Ames Address: [address] [place] [address]- Business (1) When:01/18/2023 13:32:37 [facility]05-04-2023 Evaluation + Plan noteExtracted from: Title:ED [...] w/CAD if perf and 3D Tanmay 04/21/22 [facility]03-31-2023 Miscellaneous Notes* Telephone Encounter - Bunny Durbin RN - 12/12/2022 3:03 PM EDT Spoke with patient and informed that per [facility] pharmacy, there are remaining refills on her [...] A DAY IN A WEEK Pharmacy Name: [facility] Pharmacy Phone #: [phone] Fabby Cassidy [facility] Hospital Discharge instructions Patient Education 12/05/2022 12:15:12 Post Op Patient Instructions - ALANNA (CUSTOM) 12/05/2022 12:15:12 DIRECTOR OF PHYSIOTHERAPY SERVICES - Post Hysterectomy/Laparotomy/Major Surgery-Thiago (CUSTOM) Instructions post [...] Up Care 11/04/2022 14:01:47 With:Gal Das Address: [address] [place] [address] [place], [address] [address] Business (1) When:6 weeks With:Gal Das Address: [facility], [address] [address]- Business (1) When:2 weeks Comments:Call for any problems. [facility]03-24-2023 Evaluation + Plan noteExtracted from: Title:ANES Post-operative Note - General Author: Vu Maria Jr., DO Date:12/05/22 Plan Transfer/Discharge: Transfer/Discharge Discharge when meets criteria ( From PACU to Ambulatory Surgery Unit, and To home ). Extracted from: Title:ANES Pre-operative Note - Adult Author:Vu Chowdhury Jr., DO Date:12/05/22 Plan [place] [employer] Anesthesiologists (ASA) physical status classification: Class II. Anesthetic Preoperative Plan: Anesthesia General. Future Appointments Appointment Date:01/02/2023 10:00:00 AM Scheduled Provider:Nakia Shah [facility] Appointment Type: Open Future Scheduled Tests Laboratory* CBC w/ Auto Diff 07/21/22 Radiology* MA Mamm Screen w/CAD if perf and 3D Tanmay 04/21/22 [facility]03-09-2023 NoteHNO ID: [id number] Author: Eileen Manzano MD Service: ? Author Type: Physician Type: Progress Notes Filed: 11/20/2022 10:33 AM Note Text: [facility] New Patient [...] due to congenital deformity, 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 She has never seen an director of officiating. CSF protein 24, Glu 55, Pro 28, [...] due to congenital deformity, seen in the [facility] for: 1. [...] she agreed. She needs to follow with director of officiating every 6 months. In some patients with [...] --start acetazolamide (diamox 500m (more content not included)...[id number] Instructions* Patient Instructions* Eileen Manzano MD - [...] up in 2-4 months [facility] History of Present illness Narrative* Eileen Manzano MD - 11/20/2022 7:57 AM EST Images from the original note were not included. 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 She has never seen an director of officiating. CSF protein 24, Glu 55, Pro 28, [...] due to congenital deformity, seen in the [facility] for: 1. [...] she agreed. She needs to follow with director of officiating every 6 months. In some patients with [...] Take 40 mg by mouth once daily. ytbameozkpng-kee-edlo-FA-vit K (BARIATRIC MULTIVITAMINS) 45 mg iron- 800 [...] % Lymph% 20 15.9 - 47.3 % [place]% 6 0.0 - 12.0 % Eosin% 3 0.0 - 6.6 % Baso% 1 0.0 - 1.2 % Abs Neut (ANC) 7.64 (H) 1.45 - 7.50 k/uL Abs Lymph 2.18 1.00 - 4.00 K/uL Abs [place] 0.65 0.00 - 0.86 k/uL Abs Eosin [...] which included preparing to see the patient, nrov-kr-eqwi patient care, completing clinical documentation, obtaining and/or reviewing separately obtained history, performing a medically appropriate examination, counseling and educating the pat ient/family/caregiver, ordering medications, tests, or procedures, independently interpreting results (not separately reported), communicating results to the patient/family/caregiver, and care coordination (not separately reported). Eileen Manzano MD [facility] Hospital Discharge instructions Patient Education 11/03/2022 [...] 05/12/2005 Document Revised: 08/13/2018 Document Reviewed: 07/14/2018 [employer] Patient Education 2020 [employer]. 11/03/2022 13:28:26 Tobacco Use Disorder Tobacco Use [...] reduces withdrawal symptoms. NRT is available as: ?Vqjw-ucw-yycskdh gums, lozenges, and skin patches. ?Prescription mouth [...] recovery for many people. General instructions Take frsw-kig-kdfqtay and prescription medicines only as told by your health care provider. Check with your health care provider before taking any new prescription or arle-dxh-innslfw medicines. Decide on a friend, family member, or smoking quit-line (such as 3-976-VCCH-NOW in the [place] that you can call [...] 05/06/2005 Document Revised: 08/18/2018 Document Reviewed: 08/18/2018 [employer] Patient Education 2020 [employer]. 11/03/2022 13:28:23 Alcohol Abuse and Dependence Information, [...] for Disease Control and Prevention: www.cdc.gov National [place] on Alcohol Abuse and Alcoholism: www.niaaa.nih.gov Alcoholics [...] 08/25/2017 Document Revised: 12/20/2019 Document Reviewed: 11/08/2019 [employer] Patient Education 2020 [employer]. 11/03/2022 13:28:19 BMI for Adults BMI for [...] 05/12/2005 Document Revised: 08/13/2018 Document Reviewed: 07/14/2018 [employer] Patient Education 2020 [employer]. 10/27/2022 11:56:27 Alcohol Abuse and Dependence Information, [...] to find support Your health care provider. INRIX: www.MisorecAristotle Circley.org Therapy and support groups Local treatment centers or chemical dependency counselors. Local AA groups in your community: www.aa.org Where to find more information Centers for Disease Control and Prevention: www.cdc.gov National Crandall on Alcohol Abuse and Alcoholism: www.niaaa.nih.gov Alcoholics [...] 08/25/2017 Document Revised: 12/20/2019 Document Reviewed: 11/08/2019 RaftOut Patient Education 2020 [employer]. Follow Up Care 10/15/2022 11:28:56 With:Nakia Shah Address: [address], [facility] [place] [address]- When:Within 2 Month(s) Comments:f/u smoking cessation and BP [facility] 01-11-2023 Hospital Discharge instructions [...] reduces withdrawal symptoms. NRT is available as: ?Vxla-fgo-awuyrmr gums, lozenges, and skin patches. ?Prescription mouth [...] recovery for many people. General instructions Take zfcs-jcj-nhplpwb and prescription medicines only as told by your health care provider. Check with your health care provider before taking any new prescription or fbeo-vwz-waasjix medicines. Decide on a friend, family member, or smoking quit-line (such as 9-363-RKZW-NOW in the [place] that you can call [...] 05/06/2005 Document Revised: 08/18/2018 Document Reviewed: 08/18/2018 RaftOut Patient Education 2020 [employer]. 09/24/2022 07:23:47 BMI for Adults BMI for [...] 05/12/2005 Document Revised: 08/13/2018 Document Reviewed: 07/14/2018 RaftOut Patient Education 2020 [employer]. 09/24/2022 07:23:45 Alcohol Use Disorder Alcohol Use [...] centers. Follow these instructions at home: Take hihg-ipu-twewykj and prescription medicines only as told by [...] 10/08/2005 Document Revised: 08/13/2018 Document Reviewed: 05/28/2017 RaftOut Patient Education 2020 [employer]. 09/24/2022 07:23:42 Borderline Personality Disorder, Adult Borderline [...] with BPD should do these things: Take lchu-bhg-mnetlnz and prescription medicines only as told by [...] important. Where to find more information National Viola on Mental Illness: www.marivel.org U.S. National Crandall of Mental Health: www.nimh.nih.gov Contact a health [...] 12/16/2011 Document Revised: 08/13/2018 Document Reviewed: 11/05/2017 RaftOut Patient Education 2020 [employer]. 09/24/2022 07:23:39 Managing Bipolar Disorder Managing Bipolar [...] Follow these instructions at home: Medicines Take ezvr-twq-apkqmpw and prescription medicines only as told by your health care provider or pharmacist. Ask your pharmacist what mjhi-fbb-hecoqdd cold medicines you should avoid. Some medicines [...] a problem, search for a local or [facility] mental health care center. Public mental health [...] 12/31/2017 Document Revised: 12/23/2019 Document Reviewed: 12/31/2017 ElseNomi Patient Education 2019 2[employer]. Follow Up Care 09/16/2022 13:23:11 With:Aimee Walker CNP Address: [address] [place] [address] [phone] When:3 months [facility] 12-09-2022 Hospital Discharge instructions Patient Education 08/22/2022 11:12:56 Tension Headache, Adult, Ennn-zx-Fysr Tension Headache, Adult A tension headache is pain, pressure, or aching in your head. Tension headaches can last from 30 minutes to several days. Follow these instructions at home: Managing pain Take ilea-jsn-xifzydo and prescription medicines only as told by [...] 11/25/2010 Document Revised: 08/13/2018 Document Reviewed: 12/11/2017 ElseNomi Patient Education 2020 2[employer]. Follow Up Care 08/14/2022 12:38:29 With:Rita SNOWDEN, IGGY Roberson, MINDI Address: [address], [place] [address] When:1 month only if needed Comments:40 mins [facility] 12-05-2022 Hospital Discharge instructions [...] feet clean and dry. General instructions Take kzip-zfv-dzwzbqq and prescription medicines only as told by [...] 09/26/2016 Document Revised: 06/16/2019 Document Reviewed: 06/16/2019 RaftOut Patient Education 2020 [employer]. 08/18/2022 19:56:48 Foot Sprain Foot Sprain [...] fully hardened. This may takeseveral hours. Take opnf-acb-cddjkwe and prescription medicines only as told by [...] 02/20/2003 Document Revised: 09/04/2018 Document Reviewed: 09/04/2018 RaftOut Patient Education 2020 [employer]. 08/18/2022 19:56:48 Elastic Bandage and RICE Therapy [...] limityour activities and whether you should start yyqqw-hh-lffpsj exercises for your injury. Ice Ice your [...] 02/20/2003 Document Revised: 05/21/2018 Document Reviewed: 05/21/2018 RaftOut Patient Education 2020 [employer]. Follow Up Care 08/18/2022 17:21:15 With:Hilton Gillis Address: [address] [place], [place] [id number] Business (1) When:08/21/2022 19:10:21 With:Aimee Walker Address:Unknown When:Within 3 Day(s) [facility]11-29-2022 Procedure [facility]11-29-2022 Progress note Author Lizzeth Malave [facility] August 12, 2022 10:46am Note Date/Time August 12, 2022 10:45am [facility] [address] [place], [place] [id number] Hospitalist Progress Note Signed Patient: Shazia Chou MR#: [id number] : 1990 Acct:[id number] Age/Sex: 31 / F Adm Date: 2 Loc: 4N Room: [address] [place] [address] Type: ADM INOo Attending Dr: Lizzeth Malave MD Copies to: ~ Date of Service: 08/12/2022 Subjective Subjective Narrative: Shazia Chou is a 31yo F. She was transferred here last night from [facility] with worsening headache and blurry [...] V2 Documented By: Lizzeth Malave MD 08/12/22 5720 Signed By: <Electronically signed by Lizzeth Malave MD> 08/12/22 1044 [facility] Work Phone: 1(147) 857-116611-29-2022 Consult note Author Kenrick Lee [facility] August 12, 2022 4:21pm Note Date/Time August 12, 2022 8:13am [facility] [address] [place] [address] Neurology Consult Note Signed Patient: Shazia Chou MR#: [id number] : 1990 Acct:[id number] Age/Sex: 31 / F Adm Date: 2 Loc: 4N Room: [address] [place] [address] Type: ADM INOo Attending Dr: Lizzeth Malave MD Copies to: Kenrick Lee, DO Jennie Ames DO Dorita Niño, EDINSON Malave MD~ HPI Consult Date: 08/12/22 Supervising Appraiser: ASTON Bro with Dr Lee Reason for consult: Headache, blurred vision Consult Narrative HPI: Patient is a 31-year-old female with medical history of bipolar, personality disorder, depression, and tobacco use in addition to 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 She has been seen in neurological consultation with request of the hospital service for headache and blurred vision. Patient initially presented to [facility] and was transferred to [facility] for evaluation. She was seen in the [facility] on 08/08/2022 with similar symptoms and [...] this is when she called EMS. At [facility] she had a CT scan [...] extremity from prior surgery CEREBELLAR EXAM: * Ameqgc-iy-dskl and alternating movements are intact and normal in bilateral upper extremities * Kvpw-gt-ykem and alternating movements are intact and normal [...] puncture based on these results. Evaluation at [facility]: * CT scan head is [...] once daily). Okay for discharge [facility]. Documented By: DIANNE Dias-C [id number] Signed By: <Electronically signed by EDINSON Niño> 08/12/22 0958 <Electronically signed by Kenrick Lee DO> 08/12/22 1621 [facility] Work Phone: 1(291) 667-802911-28-2022 History and physical note Author Sangeetha Peña [facility] August 11, 2022 9:43pm Note Date/Time August 11, 2022 9:08pm [facility] [address] [place] [address] Hospitalist H&P Signed Patient: Shazia Chou MR#: [id number] : 1990 Acct:[id number] Age/Sex: 31 / F Adm Date: 2 Loc: 4N Room: [address] [place] [address] Type: ADM IN Attending Dr: Erin Barahona MD Copies to: MD Erin Mcwilliams MD~ HPI DATE OF EXAMINATION: 08/11/22 CHIEF COMPLAINT: Headache with blurry vision HISTORY OF PRESENT ILLNESS: Patient is a pleasant 31-year-old female with history of borderline personality disorder, bipolar disorder and depression. She was accepted by daytime hospitalist when contacted by [facility] physician due to concern for headache [...] pain or dysuria. She was [facility] on [facility]08 with similar symptoms. [facility]. Patient continues [...] vision: Plan Patient has been transferred from [facility] when she presented with complaint of headache and blurry vision. During my evaluation her blood pressure is in 115 systolic and complaining of headache with blurry vision. Denies diplopia with no pain in extraocular movement. There is concern for possible idiopathic intracranial hypertension and patient has been transferred to [facility] for further management and neurology evaluation. Will [...] <Electronically signed by Sangeetha Peña MD> 08/11/22 1057 [facility] Work Phone: 1(643) 597-222011-25-2022 Evaluation + Plan noteExtracted from: Title:ED Note [...] Nausea/Vomiting, # 12 tab(s), Refills(s) 0, Pharmacy: [facility]/pharmacy #[id number], 162, cm, 08/08/22 9:11:00 EST, Height/Length Dosing, 83.1, kg, 08/08/22 9:11:00 EST, Weight Dosing Automated Diff Basic Metabolic Panel Beta hCG Qual CBC w/ Auto Diff CT Head or Brain w/o Contrast eGFR Influenza A&B Ag Rapid COVID Antigen ([facility]) UA With Cult Reflex Future Scheduled Tests Laboratory* CBC w/ Auto Diff 07/21/22 Radiology* MA Mamm Screen w/CAD if perf and 3D Tanmay 04/21/22 [facility]11-25-2022 Hospital Discharge instructions Patient Education 08/08/2022 [...] health care provider to lose weight. Take ieve-fyj-wkgpfjs and prescription medicines only as told by [...] 11/09/2002 Document Revised: 08/13/2018 Document Reviewed: 07/22/2017 RaftOut Patient Education 2020 2[employer]. Follow Up Care 08/08/2022 09:04:11 With:Kenrick Lee Address: [address] [place] [address] Business (1) When:08/11/2022 11:38:22 Comments:Follow-up with Dr. [...] you develop any new or worsening symptoms. [facility]11-07-2022 Evaluation + Plan note Future Scheduled Tests Laboratory* CBC w/ Auto Diff 07/21/22 Radiology* MA Mamm Screen w/CAD if perf and 3D Tanmay 04/21/22 [facility] 11-07-2022 Evaluation + Plan note Future Scheduled Tests Laboratory* CBC w/ Auto Diff 07/21/22 [facility]11-07-2022 Hospital Discharge instructions Patient Education 07/21/2022 [...] Follow these instructions at home: Medicines Take dimv-nuo-ratsjot and prescription medicines only as told by your health care provider or pharmacist. Ask your pharmacist what vrim-muz-dopngie cold medicines you should avoid. Some medicines [...] a problem, search for a local or [facility] mental health care center. Public mental health [...] 12/31/2017 Document Revised: 12/23/2019 Document Reviewed: 12/31/2017 RaftOut Patient Education 2020 2[employer]. 07/21/2022 11:21:57 Tobacco Use Disorder Tobacco Use [...] reduces withdrawal symptoms. NRT is available as: ?Qwfy-hxm-bdehcmn gums, lozenges, and skin patches. ?Prescription mouth [...] recovery for many people. General instructions Take twrq-lgt-hwxvhlk and prescription medicines only as told by your health care provider. Check with your health care provider before taking any new prescription or aivr-xsh-nadqoxu medicines. Decide on a friend, family member, or smoking quit-line (such as 9-672-YTAN-NOW in the [place] that you can call [...] 05/06/2005 Document Revised: 08/18/2018 Document Reviewed: 08/18/2018 RaftOut Patient Education 2020 [employer] Inc. 07/21/2022 11:21:55 BMI for Adults BMI [...] 05/12/2005 Document Revised: 08/13/2018 Document Reviewed: 07/14/2018 RaftOut Patient Education 2020 2[employer]. 07/21/2022 11:21:53 Leukocytosis Leukocytosis Leukocytosis means that [...] Follow these instructions at home: Medicines Take xrct-mwb-kwiyztw and prescription medicines only as told by [...] 08/19/2012 Document Revised: 05/26/2019 Document Reviewed: 05/26/2019 RaftOut Patient Education 2020 2[employer]. Follow Up Care 07/18/2022 10:46:12 With:Aimee Walker CNP Address: When: only if needed [facility] 11-04-2022 Miscellaneous Notes* Telephone Encounter - Cat Rojo LPN - 07/18/2022 11:04 AM EDT Call placed to patient, no answer. Left message for patient to proceed with nicotine testing prior to scheduling. Please transfer to plastic surgery nurse if patient returns call with questions. [facility] Evaluation + Plan note Future Scheduled Tests Radiology* MRI Breast w/o and w/ Contrast, Left 05/13/22 * MA Mamm Screen w/CAD if perf and 3D Tanmay 04/21/22 [facility] General Surgery [place] 08-30-2022 Hospital Discharge instructions Patient Education 05/13/2022 [...] ?Hypothyroidism. ?Polycystic ovarian syndrome (PCOS). ?Binge-eating disorder. ?Leonard syndrome. Taking certain medicines, such as steroids, [...] and how much exercise you get. Take twdi-lke-xcgibbs and prescription medicines only as told by [...] 10/08/2005 Document Revised: 05/05/2019 Document Reviewed: 05/05/2019 RaftOut Patient Education 2019 2[employer]. [facility] [place] [id number] Evaluation + Plan note Future Scheduled Tests Radiology* MA Mamm Screen w/CAD if perf and 3D Tanmay 04/21/22 [facility]08-08-20[facility] Hospital Discharge instructions Patient Education 04/21/2022 [...] 05/12/2005 Document Revised: 08/13/2018 Document Reviewed: 07/14/2018 RaftOut Patient Education 2020 2[employer]. 04/21/2022 10:14:51 Lymphadenopathy Lymphadenopathy Lymphadenopathy means that [...] at home: Get plenty of rest. Take xwpi-rdk-oxfomfs and prescription medicines only as told by your health care provider. Your health care provider may recommend tlwi-qge-yqawkbt medicines for pain. If directed, apply heat [...] 06/09/2009 Document Revised: 08/13/2018 Document Reviewed: 07/16/2018 RaftOut Patient Education 2020 2[employer]. 04/21/2022 10:14:49 Tobacco Use Disorder Tobacco Use [...] reduces withdrawal symptoms. NRT is available as: ?Iulw-ino-ffrsrew gums, lozenges, and skin patches. ?Prescription mouth [...] recovery for many people. General instructions Take vizz-vvb-mxlhyko and prescription medicines only as told by your health care provider. Check with your health care provider before taking any new prescription or rbkh-riy-cnaotid medicines. Decide on a friend, family member, or smoking quit-line (such as 9-525-WEQI-NOW in the [place] that you can call [...] 05/06/2005 Document Revised: 08/18/2018 Document Reviewed: 08/18/2018 RaftOut Patient Education 2020 [employer] Follow Up Care 04/17/2022 09:51:05 With:Aimee Walker CNP Address: When: only if needed [facility] 08-07-2022 Hospital Discharge instructions [...] at home: Get plenty of rest. Take awvy-tvr-dnwejhg and prescription medicines only as told by your health care provider. Your health care provider may recommend jyai-mar-okhmmuw medicines for pain. If directed, apply heat [...] 06/09/2009 Document Revised: 08/13/2018 Document Reviewed: 07/16/2018 RaftOut Patient Education 2020 2[employer]. Follow Up Care 04/20/2022 14:55:22 With:Aimee Walker Address: [address] [place] [address], [facility] [place] [address] [phone] Business (1) When:04/23/2022 16:08:48 Comments:Follow-up with your primary care provider in 3 to 5 days. If symptoms worsen, do not improve, or new symptoms arise please report back to emergency department for further evaluation. [facility]08-07-2022 Evaluation + Plan noteExtracted from: Title:ED Note Author:Dony Alegre PA-C te:04/20/22 Axillary lymphadenopathy (R5 9.0: Localized enlarged lymph nodes) Orders: naproxen, 500 mg = 1 tab(s), Oral, BID, PRN for pain, # 20 tab(s), Refills(s) 0, Pharmacy: [facility]/pharmacy #[id number], 170, cm, 04/20/22 15:01:00 EDT, Height/Length Dosing, 81.5, kg, 04/20/22 15:01:00 EDT, Weight Dosing Automated Diff Basic Metabolic Panel CBC w/ Auto Diff eGFR XR Chest 2 Views Future Appointments Appointment Date:04/21/2022 09:40:00 AM Scheduled Provider:Aimee Walker CNP Location[facility] Appointment Type: Open [facility]07-21-2022 Hospital Discharge instructions Patient Education 04/03/2022 [...] 03/15/2012 Document Revised: 08/24/2019 Document Reviewed: 08/24/2019 RaftOut Patient Education 2019 2[employer]. Follow Up Care 04/03/2022 16:59:04 With:Aimee Walker CNP Address: [phone] When:04/06/2022 [facility]06-17-[facility]22 Miscellaneous Notes* Telephone Encounter - Lian Chavez RN - 02/28/2022 3:[address] Mckee, patient must be 4 weeks nicotine free prior to scheduling and collection of cosmetic payment. documented in this [facility]Mary [facility] History of Present illness Narrative* Amee Gonzalez PA-C - 02/12/2022 10:38 AM EDT Images from the original note were not included. Otolaryngology Consultation/Evaluation Note Head and Neck Crandall ASSESSMENT: Burning tongue (primary encounter diagnosis) Irritation of oral cavity PLAN: - Oral mucosa at floor of mouth, Bradley's ducts, and frenulum irritated with mild erythema [...] Take 40 mg by mouth once daily. vknbpufqwmfw-qmm-cyzz-FA-vit K (BARIATRIC MULTIVITAMINS) 45 mg iron- 800 [...] and tender to palpation specifically around b/l Bradley's ducts and frenulum. Ventral aspect of tongue [...] Level: 3 - Low documented in this encounterMary [facility] Hospital Discharge instructions Patient Education 02/06/2022 [...] reduces withdrawal symptoms. NRT is available as: ?Afng-ipv-iospleb gums, lozenges, and skin patches. ?Prescription mouth [...] recovery for many people. General instructions Take wajw-cwx-kaexsdr and prescription medicines only as told by your health care provider. Check with your health care provider before taking any new prescription or vloh-eii-owwgzqp medicines. Decide on a friend, family member, or smoking quit-line (such as 6-977-GTTN-NOW in the [place] that you can call [...] 05/06/2005 Document Revised: 08/18/2018 Document Reviewed: 08/18/2018 RaftOut Patient Education 2020 2[employer]. 02/06/2022 09:33:46 BMI for Adults BMI for [...] 05/12/2005 Document Revised: 08/13/2018 Document Reviewed: 07/14/2018 RaftOut Patient Education 2020 [employer] Follow Up Care 02/05/2022 13:43:34 With:Aimee Walker CNP Address: When: only if needed [facility] 05-18-2022 Hospital Discharge instructions [...] 05/12/2005 Document Revised: 08/13/2018 Document Reviewed: 07/14/2018 RaftOut Patient Education 2020 2[employer]. 01/29/2022 11:02:54 Complicated Grief Complicated Grief Grief [...] friends and loved ones. General instructions Take pkds-qdn-gtmkyil and prescription medicines only as told by [...] 08/31/2006 Document Revised: 08/13/2018 Document Reviewed: 06/16/2018 RaftOut Patient Education 2020 2[employer]. 01/29/2022 11:02:50 Alcohol Abuse and Dependence Information, [...] find support Your health care provider. [employer] www.smartrecovery.org Therapy and support groups Local treatment centers or chemical dependency counselors. Local AA groups in your community: www.aa.org Where to find more information Centers for Disease Control and Prevention: www.cdc.gov National Crandall on Alcohol Abuse and Alcoholism: www.niaaa.nih.gov Alcoholics [...] 08/25/2017 Document Revised: 12/20/2019 Document Reviewed: 11/08/2019 RaftOut Patient Education 2019 2[employer]. 01/29/2022 11:02:46 Managing Bipolar Disorder Managing Bipolar [...] Follow these instructions at home: Medicines Take gbsx-spy-koljlen and prescription medicines only as told by your health care provider or pharmacist. Ask your pharmacist what omgu-hoj-xphbyce cold medicines you should avoid. Some medicines [...] a problem, search for a local or [facility] mental health care center. Public mental health [...] Document Reviewed: 12/31/2017 Elsevier Patient Education 2020 RaftOut Inc. [facility] 05-02-2022 Miscellaneous Notes* Telephone [...] another consult she would. Please advise at [phone] documented in this encounterMary [facility]22 Miscellaneous Notes* Telephone Encounter - Rocio [...] understood. Rocio Hester Ma documented in this encounterMary [facility]05-[facility] History of Present illness Narrative* Radha Jara - 02/01/2021 9:47 AM EDT CLINICAL PHARMACY NOTE: MEDS TO BEDS Total # of Prescriptions Filled: 2 The following medications were delivered to the patient: Percocet 5-325mg Augmentin 875-125mg Additional Documentation: delivered to patient in room 236 02/01 at 9:44am. Co- pay paid with credit on [employer] ($4.31). * Gamaliel Harris, - 01/31/2021 6:29 [...] Advance diet Overall improvement * Yvonne Singh [facility] - 01/30/2021 9:03 PM EDT Images from [...] Singh RPH 19:00 PM documented in [facility] Phone: 1(546) 656-657905-15-2021 History of Present illness Narrative* Jasmine Burch RN - 01/26/2021 1:51 PM EDT Infusion complete, no complications, IV out and dressing applied. Encouraged patient to call with any questions. Patient left unit with steady gait to private residence. documented in this encounterC[facility] Phone: 1(726) 948-977204-27-2021 History of Present illness Narrative* Radha Jara - 01/08/2021 5:59 PM EDT CLINICAL PHARMACY NOTE: MEDS TO [facility] Select Patient?: No Total # of Prescriptions Filled: 3 The following medications were delivered to the patient: Percocet 5-325mg Promethazine 25mg Pantoprazole 40mg Total # of Interventions Completed: 0 Time Spent (min): 0 Additional Documentation: delivered to patient in room 247 01/08 at 5:43pm. Co- pay paid with [employer] ($7.02). * Gal Atwood DO - 01/08/2021 [...] Morbid obesity with BMI of 40.0-44.9, adult ([facility]) [E66.01, Z68.41] 05/16/2020 30 y.o. female postop [...] obtained for OR 01-07-21 documented in this encounterRapid [facility]ocabulary Phone: 1(231) 485-951404-27-2021 Hospital Discharge instructions* Instructions* Gamaliel Harris, - 01/08/2021 Discharge Instructions for Surgery You had a Tian-en- Y Gastric Bypass (17470) surgery to treat obesity. Recovery from this [...] scheduled appointment, please call the office at [phone]. Call Your Doctor If Any of the [...] emergency, call 911 immediately. documented in this [facility] Phone: 1(542) 164-738504-12-2021 Hospital Discharge instructions* Instructions* Mahesh Price APRN - BINDER FIXER - 12/24/2020 Images from the original note [...] drive you home after your procedure. Your pick up and delivery driver must be 18 years of [...] questions, call the Pre-Admission Testing Unit at [phone]. Day of Surgery/Procedure As a patient at [facility] you can expect quality medical and nursing care that is centered on your individual needs. Our goal is to make your surgical experience as comfortableas possible . Directions to the Surgery Center [facility] is located at [address] [place] [address]. Please pull into the Emergency parking lot and stop at the aircraft maintenance director arcos. We offer free aircraft maintenance director service for all our surgery patients, if you choose not to have aircraft maintenance director parking we have additional parking across the street.You will enter the facility following the [facility] sign. Please stop at the information receptionist desk where you will be checked in by the staff. If you have any questions please call [phone]. Transportation after your procedure. You will need a friend or family member to drive you home after your procedure. Your pick up and delivery driver must be18 years of age [...] You may shave your face or neck. [place] your teeth but do not swallow water. [...] or the day of surgery, please call [phone], or [phone] documented [facility] this [facility] Work Phone: 1(564) 753-948404-12-2021 History of Present illness Narrative* Mahesh Price, TRANSCRIPTIONIST - BINDER FIXER - 12/24/2020 10:30 AM EDT Anesthesia Focused [...] Destin Nicole for therapy Borderline personality disorder ([facility]) [facility], therapist Destin Nicole Depression Flat feet, bilateral Foot pain, bilateral Dr. Octavio Sims, international accounting manager GERD (gastroesophageal reflux disease) managed by Dr. [...] BLEVINS 12/24/20 11:38 AM documented in this [facility] Work Phone: evaluation + Plan note No data available for this section [facility] Evaluation + Plan note Referrals to Other Providers Referred by: Aimee Walker CNP [facility] Evaluation + Plan note Future Appointments Appointment Date:04/04/2022 02:40:00 PM Scheduled Provider:Rahul Salinas DO [facility] Future Appointments Appointment Date:04/22/2022 09:15:00 AM Scheduled Provider: Location[facility] Appointment Type:MA Diagnostic (FT) Appointment Date:04/22/2022 10:00:00 AM Scheduled Provider: [facility] Type:US Breast (FT) Future Scheduled Tests Radiology* US Breast Unilateral Lt Complete 04/21/22 * US Breast Unilateral Rt Complete 04/21/22 * MA Mamm Diag w/CAD if perf and 3D Tan[place] 04/22/22 * MA Mamm Screen w/CAD if perf and 3D [place] 04/21/22 [facility] Evaluation + Plan note Future Appointments Appointment Date:08/22/2022 10:20:00 AM Scheduled Provider:Rahul Salinas DO Location:[facility] Appointment Type: Hospital Follow Up w/TCM Future Scheduled Tests Laboratory* CBC w/ Auto Diff 07/21/22 Radiology* MA Mamm Screen w/CAD if perf and 3D [place] [facility] App[facility]ments Appointment Date:11/03/2022 01:00:00 PM Scheduled Provider:Nakia Shah Location:[facility] Appointment Type:FM Open Future Scheduled Tests Laboratory* CBC w/ Auto Diff 07/21/22 Radiology* MA Mamm Screen w/CAD if perf and 3D [place] 04/21/22 [facility] Future Appointments Appointment Date:01/02/2023 10:00:00 AM Scheduled Provider:Nakia Shah Location:[facility] Appointment Type:FM Open Future Scheduled Tests Laboratory* CBC w/ Auto Diff 07/21/22 Radiology* MA Mamm Screen w/CAD if perf and 3D [place] 04/21/22 [facility] Evaluation + Plan note Future Appointments Appointment Date:12/05/2022 09:00:00 AM Scheduled Provider: Location:[facility] Appointment Type:Surgery FT Appointment Date:01/02/2023 10:00:00 AM Scheduled Provider:Nakia Shah Location:[facility] Appointment Type: Open Future Scheduled Tests Laboratory* CBC w/ Auto Diff 07/21/22 Radiology* MA Mamm Screen w/CAD if perf and 3D [place] 04/21/22 [facility] Future Appointments Appointment Date:12/25/2023 10:15:00 AM Scheduled Provider:Otto Larsen MD [facility] (FT) [facility] Diagnosis Preop testing- Primary Preoperative examination, unspecified documented in this encounter [employer] Phone: evaluation note* Diagnosis Post-op pain- Primary Other acute postoperative pain Status post gastric bypass for obesity Bariatric surgery status Morbid obesity with BMI of 40.0-44.9, adult (HCC) Hiatal hernia Diaphragmatic hernia without mention of obstruction or gangrene documented in this encounter [employer] Phone: evaluation note* Diagnosis Dehydration documented in this encounter [employer] Phone: [email or web address] note* Diagnosis Generalized abdominal pain- Primary Abdominal pain, generalized documented in this encounter [employer] Phone: evaluation note* Diagnosis Surgery, elective- Primary Unspecified elective surgery for purposes other than remedying health states Omental infarction (HCC) Acute vascular insufficiency of intestine Intra-abdominal abscess (HCC) Peritoneal abscess documented in this encounter [employer] Phone: [email or web address] note* Diagnosis Omental infarction (HCC) Acute vascular insufficiency of intestine documented in this encounter [employer] Phone: [email or web address] note* Diagnosis Hypertrophy of breast- Primary Upper back pain Excess skin [facility] Diagnosis Burning tongue- Primary Glossodynia Irritation of oral cavity Other and unspecified diseases of the oral soft tissues [facility]* Diagnosis Onset Date Resolution Status Bipolar 1 disorder acute Blurry vision acute Borderline personality disorder acute Headache acute MDD (major depressive disorder) acute Palpitation acute [facility] Work Phone: Evaluation note* Diagnosis Idiopathic intracranial hypertension- Primary Benign intracranial hypertension Depression, unspecified depression type Primary hypertension Unspecified essential hypertension Hx of gastric bypass Bariatric surgery status H/O foot surgery Personal history of surgery to other organs [facility] encounter [facility] assessment information [facility] Work Phone: [email or web address] noteNo [facility] [employer] Other Evaluation note* Diagnosis Panic disorder- Primary Panic disorder without agoraphobia Borderline personality disorder (HCC) Borderline personality disorder Bipolar affective disorder in remission (HCC) Chronic alcoholism in remission (HCC) Other and unspecified alcohol dependence, in remission Routine health maintenance Routine general medical examination at a health care facility [facility] Diagnosis Panic disorder- Primary Panic disorder without agoraphobia [facility]* Diagnosis Routine health maintenance- [...] disorder, unspecified type [facility] encounter [facility]* Diagnosis 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 documented in this encounter [facility] general Narrative - Reported* Type Description Date Medical History plantar fasciitis Medical History migraine headache Medical History borderline personality disorder Medical History chronic depression Medical History bipolar Surgical History C section Surgical History c section Surgical History tubal ligation Surgical History HYSTERECTOMY Surgical History oral surgery Surgical History gastric bypass Hospitalization History mental health issues Anki Other History general Narrative - Reported* Type Description Date Medical History plantar fasciitis Medical History migraine headache Medical History borderline personality disorder Medical History chronic depression Medical History bipolar Surgical History C section Surgical History c section Surgical History tubal ligation Surgical History HYSTERECTOMY Surgical History oral surgery Surgical History gastric bypass Hospitalization History mental health issues Hospitalization History [facility] - hysterectomy 11/13 023 [employer] [facility] [employer] Other Hospital Discharge instructions No data available for this section [facility] Progress note No data available for this section [facility] Diagnosis Preoperative testing Preoperative examination, unspecified Diagnosis Gastroesophageal reflux disease with esophagitis without hemorrhage Advance Directives No Advanced Directives Records FoundDocuments on File Type Date Recorded Patient Commercial Real Estate Broker Expl anation ACP-Advance Directive ACP-Power of Can Maker Documents on File Type Date Recorded Patient Commercial Real Estate Broker Expl anation ACP-Advance Directive ACP-Power of Can Maker Latest Code Status on File Code Status [...] CONTRAST Additional Contrast? Oral Gamaliel Harris DO [address] [facility] [address] [place] [address] Specialty Diagnoses / Procedures Referred By Contac t Referred To Contact Ophthalmology Diagnoses Idiopathic intracranial hypertension Procedures CONSULT TO OPHTHALMOLOGY OFFICE/OUTPATIENT [facility] 60-74 MINUTES Eileen Manzano MD [address] [place] [address] Referral ID Status Reason Start Date Expiration Date Visits Requested Visits Authorized [id number] Authorized PCP Requested Referral 11/20/2022 11/20/2023 1 1 Specialty Diagnoses / Procedures Referred By Contac t Referred To Contact MR IMAGING Diagnoses Idiopathic intracranial hypertension Procedures MRV BRAIN WO/W IVCON MRA; HEAD W & WO CONTRAST Eileen Manzano MD [address] [place] [address] Mr Imaging Referral ID Status Reason Start Date Expiration Date Visits Requested Visits Authorized [id number] Pending Review Auto-Generat ed Referral 11/20/2022 12/20/2023 1 1 Specialty Diagnoses / Procedures Referred By Contac t Referred To Contact MR IMAGING Diagnoses Mass of upper outer quadrant of left breast Procedures MRI BREAST BX WO/W IVCON LEFT BX BREAST W/DEVICE 1ST [place] [address] [place] [address] [place] [address] Referral ID Status Reason Start Date Expiration Date Visits Requested Visits Authorized [id number] Pending Review Auto-Generat ed Referral 03/08/2024 04/07/2025 1 1 Specialty Diagnoses / Procedures Referred By Contac t Referred To Contact Diagnoses Class 1 obesity due to excess calories without serious comorbidity with body mass index (BMI) of 30.0 to 30.9 in adult Procedures ENDOCRINE MEDICAL WEIGHT MANAGEMENT OFFICE/OUTPATIENT [facility] [address] [place] [address] [place] [address] Referral ID Status Reason Start Date Expiration Date Visits Requested Visits Authorized [id number] Authorized PCP Requested Referral 03/08/2024 03/08/2025 1 1 Specialty Diagnoses / Procedures Referred By Contac t Referred To Contact MR IMAGING Diagnoses Pancreas cyst Procedures MRI 3D POST PROCESSING 3D RENDERING W/INTERP&POSTPROC DIFF WORK STATION Leonela Grossman MD [address] [id number] [facility] [place] [address] Referral ID Status Reason Start Date Expiration Date V isits Requested Visits Authorized [id number] Closed Auto-Generate d Referral 08/31/2023 09/29/2024 1 1 Specialty Diagnoses / Procedures Referred By Contac t Referred To Contact MR IMAGING Diagnoses Pancreas cyst Procedures MRI PANC/TANMAY WO/W IVCON MRI ABDOMEN W/O & W/CONTRAST MATERIAL Leonela Grossman MD [address] [id number] [facility] [place] [address] Referral ID Status Reason Start Date Expiration Date V isits Requested Visits Authorized [id number] Closed Auto-Generate d Referral 03/01/2024 03/31/2024 1 [...] and content) DATE CREATED AUTHOR 10/06/2020 [facility] DATE CREATED AUTHOR AUTHOR'S GONZALEZ YOUNG 01/06/[address] [facility] DATE CREATED AUTHOR AUTHOR'S ORGANIZ ATION 08/16/2022 [facility] [place] DATE CREATED AUTHOR AUTHOR'S ORGANIZ ATION 11/15/2022 [facility] DATE CREATED AUTHOR AUTHOR'S ORGANIZ ATION 08/17/2023 [facility] DATE CREATED AUTHOR AUTHOR'S ORGANIZ ATION 09/04/2023 [facility] DATE CREATED AUTHOR AUTHOR'S ORGANIZ ATION 10/26/2023 [facility] DATE CREATED AUTHOR AUTHOR'S ORGANIZ ATION 01/12/2024 [facility] DATE CREATED AUTHOR AUTHOR'S ORGANIZ ATION 01/14/[address] [facility] DATE CREATED AUTHOR AUTHOR'S ORGANIZ ATION 03/09/2024 [facility] DATE CREATED AUTHOR AUTHOR'S ORGANIZ ATION 03/12/2024 [facility] Reason for Visit (unrecogniz ed section and content) Status Reason Specialty Diagnoses / Procedures Re ferred By Contact Referred To Contact Diagnoses GERD (gastroesophageal reflux disease) GERD/OBESITY Procedures WI ESOPHAGOGASTRODUODENOSCOPY TRANSORAL DIAGNOSTIC EGD ESOPHAGOGASTRODUODENOSCOPY Gamaliel Harris DO [address] [address] [facility] Status Reason Specialty Diagnoses / Procedures Referre d By Contact Referred To Contact Closed Radiology Diagnoses Gastro-esophageal reflux disease with esophagitis, without bleeding Procedures CHG RADIOLOGIC EXAM UPR GI TRC SINGLE CONTRAST STUDY Gamaliel Harris DO [address] [facility] [address] [place] [phone] [facility] [address] [place] [id number] Status Reason Specialty Diagnoses / Procedures Referre d By Contact Referred To Contact Diagnoses Morbid obesity (HCC) GERD (gastroesophageal reflux disease) MORBID OBESITY, GERD Procedures WI LAP GASTRIC BYPASS/TIAN-EN-Y XI LAPAROSCOPIC ROBOTIC GASTRIC BYPASS TIAN-EN-Y, LIVER BIOPSY, EGD- GI UNIT SCHEDULED. Gamaliel Harris DO [address] [facility] [address] [place] [phone] [facility] [employer] Reason Comments Abdominal Pain Diffuse cramping and bloating. Onset 2 days ago. Pt reports she is 3.5weeks post Gastric bypass. Last BM this AM Reason Comments Abdominal Pain possible abscess Status Reason Specialty Diagnoses / Procedures Referre d By Contact Referred To Contact Diagnoses Intra-abdominal abscess (HCC) Omental infarction (HCC) Gamaliel Harris DO [address] [facility] [address] [place] [phone] [facility] [employer] Status Reason Specialty Diagnoses / Procedures Referre d By Contact Referred To Contact Closed Radiology Diagnoses Omental infarction (HCC) Procedures CT ABDOMEN PELVIS W IV CONTRAST Additional Contrast? Oral Gamaliel Harris DO [address] [facility] [facility] [address] [place] [address] Reason Comments Orders Reason Comments Patient Question [...] present [K21.9] Obesity (BMI 30-39.9) [E66.9] Procedures WI EGD TRANSORAL BIOPSY SINGLE/MULTIPLE WI ESOPHAGOGASTRODUODENOSCOPY TRANSORAL DIAGNOSTIC WI EGD BALLOON DILATION ESOPHAGUS <30 MM DIAM EGD BIOPSY Gamaliel Harris DO [address] [facility] [address] [place] [address] [facility] [address] [place] [address] Referral ID Status Reason Start Date Expiration Date Visits Re quested Visits Authorized [id number] 1 1 Reason Comments Establish Care Panic [...] W/O & W/CONTRAST MATERIAL Leonela Grossman MD [address] [place] [address] [place] [address] Referral ID Status Reason Start Date Expiration Date V isits Requested Visits Authorized [id number] Closed Auto-Generate d Referral 03/01/2024 03/31/2024 1 [...] 1 dose 1142 (Given - Provid er: [facility]) iopamidol (ISOVUE-370) 76 % injection 75 mL (COMPLETED) 75 mL, Intravenous, IMG ONCE PRN, Other, Starting on Thu01/30/21 at 1137, For 1 dose 1142 (Given - Provid er: [facility]) Scheduled Medication Order 01/30/2021 01/31/2021 02/01/2021 0.9 [...] at 2200 2315 (Held - Provider: Heather Palacios RN - Reason: Patient/family refused) 0938 (Given [...] or prosecute any alcohol or drug abuse patient.[facility] the event this information is protected by the Federal Confidentiality of Alcohol and Drug Abuse Patient Records regulations: The Federal rules restrict any use of the information to criminally investigate or prosecute any alcohol or drug abuse patient.[facility] the event this information is protected by the Federal Confidentiality of Alcohol and Drug Abuse Patient Records regulations: The Federal rules restrict any use of the information to criminally investigate or prosecute any alcohol or drug abuse patient.[facility] the event this information is protected by the Federal Confidentiality of Alcohol and Drug Abuse Patient Records regulations: The Federal rules restrict any use of the information to criminally investigate or prosecute any alcohol or drug abuse patient.[facility] Hospital[facility] the event this information is protected by the Federal Confidentiality of Alcohol and Drug Abuse Patient Records regulations: The Federal rules restrict any use of the information to criminally investigate or prosecute any alcohol or drug abuse patient.[facility] Hospital[facility] the event this information is protected by the Federal Confidentiality of Alcohol and Drug Abuse Patient Records regulations: The Federal rules restrict any use of the information to criminally investigate or prosecute any alcohol or drug abuse patient.[facility] Hospital[facility] the event this information is protected by the Federal Confidentiality of Alcohol and Drug Abuse Patient Records regulations: The Federal rules restrict any use of the information to criminally investigate or prosecute any alcohol or drug abuse patient.[facility] Hospital[facility] the event this information is protected by the Federal Confidentiality of Alcohol and Drug Abuse Patient Records regulations: The Federal rules restrict any use of the information to criminally investigate or prosecute any alcohol or drug abuse patient.[facility] Hospital[facility] the event this information is protected by the Federal Confidentiality of Alcohol and Drug Abuse Patient Records regulations: The Federal rules restrict any use of the information to criminally investigate or prosecute any alcohol or drug abuse patient.[facility] Hospital[facility] the event this information is protected by the Federal Confidentiality of Alcohol and Drug Abuse Patient Records regulations: The Federal rules restrict any use of the information to criminally investigate or prosecute any alcohol or drug abuse patient.[facility] HospitalIn the event this information is protected by the Federal Confidentiality of Alcohol and Drug Abuse Patient Records regulations: The Federal rules restrict any use of the information to criminally investigate or prosecute any alcohol or drug abuse patient.[facility] HospitalIn the event this information is protected [...] or prosecute any alcohol or drug abuse patient.[facility] Care Team (unrecognized sect ion and [...] Active Yoli Norris MD Emergency Provider Active Power 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 [place] [phone] PCP - General Family Medicine 11/19/22 Team [...] December 31, 2023 End: December 31, 2023 Power Line Lineman Relationship Specialty [place] [address] [place] [address] PCP - General Family Medicine 01/04/24 Nilo Prado MD [address] [place] [address] Referring Gastroenterology 08/17/23 Power Line Lineman Relationship Specialty [place] [address] [place] [address] PCP - General Family Medicine 01/04/24 Nilo Prado MD [address] [place] [address] Referring Gastroenterology 08/17/23 Power Line Lineman Relationship Specialty [place] [address] [place] [address] PCP - General Family Medicine 01/04/24 Nilo Prado MD [address] [place] [address] Referring Gastroenterology 08/17/23 Power Line Lineman Relationship Specialty Start [place] [address] [place] [address] PCP - General Family Medicine 01/04/24 Nilo Prado MD [address] [place] [address] Referring Gastroenterology 08/17/23 Goals (unrecognized section and [...] BE BASED ON THE PRIMARY CLINICAL RECORDS. [email or web address] provides no warranty or guarantee of the accuracy or completeness of information in this document."
--- NOTE | 2024-04-08 06:48 | ECG_ITS ---
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
--- NOTE | 2024-04-08 06:49 | ED.SOB1 ---
HPI - SOB/Dyspnea General Chief Complaint: Shortness of Breath/Dyspnea Stated Complaint: CHEST PAIN Time Seen by Provider: 04/08/24 06:40 Source: patient Mode of arrival: walk-in Limitations: no limitations History of Present Illness HPI Narrative: This 33-year-old female, smoker, presents for evaluation of 2 days of shortness of breath. The patient states she feels like she cannot take a deep breath. She has a history of anxiety, ER visits for chest pain, dehydration, and headaches. She denies any jessica chest pain but states her chest feels tight. She denies any perioral numbness or tingling. She denies any tingling of her hands or feet. She states she woke up this morning and took her Klonopin but it did not help so she feels this may be different than her anxiety. She denies any abdominal pain. She denies any nausea or vomiting. She is on multiple psychiatric medications and for the past month has been on Mounjaro for weight loss. The patient states she is status post gastric bypass but after her parents and grandmother she was drinking heavily and put on a lot of weight. She was put on the Mounjaro for weight loss and also put on naltrexone for the history of alcohol abuse. She states she has lost 13 pounds. She states that she has been drinking plenty of water and drinks at least 60 ounces of water on a daily basis. She has no lower extremity pain or swelling. She denies any fever. She denies any sore throat. 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 Related Data Home Medications ?Medication ?Instructions ?Recorded ?Confirmed cholecalciferol (vitamin D3) 125 5,000 unit PO .COMPLEX 06/10/23 04/08/24 mcg (5,000 unit) capsule duloxetine 60 mg capsule,delayed 60 mg PO BID 06/10/23 04/08/24 release acetazolamide 250 mg tablet 250 mg PO Q12H 07/10/23 04/08/24 brexpiprazole 4 mg tablet (Rexulti) 4 mg PO DAILY 07/10/23 04/08/24 buspirone 5 mg tablet 5 mg PO BID 10/14/23 04/08/24 trazodone 100 mg tablet 50 mg PO BEDTIME 10/14/23 04/08/24 semaglutide 0.25 mg or 0.5 mg (2 0.5 mg subcut QWEEK 12/19/23 04/08/24 mg/3 mL) subcutaneous pen injector clonazepam 0.5 mg tablet 0.5 mg PO PRN 04/08/24 04/08/24 lamotrigine 25 mg tablet 25 mg PO TID 04/08/24 04/08/24 naltrexone 50 mg tablet 50 mg PO .once daily 04/08/24 04/08/24 tirzepatide 2.5 mg/0.5 mL 2.5 mg subcut .once a week 04/08/24 04/08/24 subcutaneous pen injector (Yolande) Previous Rx's ?Medication ?Instructions ?Recorded ondansetron 4 mg disintegrating 4 mg PO Q6H PRN nausea/vomiting 08/14/23 tablet #20 tabs meclizine 25 mg tablet 25 mg PO TID PRN dizziness #20 tabs 10/14/23 Allergies Allergy/AdvReac Type Severity Reaction Status Date / Time buspirone [From BuSpar] Allergy Intermediate tachycardia Verified 04/08/24 06:36 aripiprazole [From Abilify] Allergy Unknown Verified 04/08/24 06:36 COCONUT Allergy Mild Hives Uncoded 04/08/24 06:36 Review of Systems ROS Status of ROS 10 or more systems reviewed and unremarkable except as noted in history and below [facility] Social History Smoking status: Current every day smoker Exam Narrative Exam Narrative: Vital signs and Nursing Notes reviewed: Patient is afebrile with a normal pulse, normal blood pressure, she is not hypoxic with pulse ox of 100% on room air General: Awake, alert, oriented, no acute distress, lying comfortably on the stretcher, speaking in complete sentences, no respiratory distress she appears calm and comfortable HEENT: Normocephalic atraumatic, mucous membranes are moist and pink, eyes are clear, normal conjunctiva, vision is grossly intact, posterior pharynx is normal in appearance. Chest: Lungs are clear to auscultation with good air entry, there is no wheezing rhonchi or rales appreciated no accessory muscle use, patient is speaking in complete sentences-no chest wall tenderness to palpation CVS: Regular rate and rhythm S1-S2, no murmurs rubs or gallops, pulses are brisk and equal bilaterally ABD: Soft, nondistended, nontender, no rebound guarding or rigidity, bowel sounds are normal, no pulsatile masses appreciated Extremities: Moving all extremities, no lower extremity tenderness or swelling noted, negative Homans' sign, pulses are brisk and equal bilaterally Skin: Normal in appearance without rash,pallor, petechiae or purpura Neuro: No focal deficits Constitutional Vital Signs, click to edit/add: Last Vital Signs Temp 98 F 04/08/24 06:33 Pulse 82 04/08/24 06:33 Resp 18 04/08/24 06:33 BP 113/82 04/08/24 06:33 Pulse Ox 100 04/08/24 06:33 O2 Del Method Room Air 04/08/24 06:33 Course Vital Signs Vital signs: Vital Signs Temperature 98 F 04/08/24 06:33 Pulse Rate 82 04/08/24 06:33 Respiratory Rate 18 04/08/24 06:33 Blood Pressure 113/82 04/08/24 06:33 Pulse Oximetry 100 04/08/24 06:33 Oxygen Delivery Method Room Air 04/08/24 06:33 Temperature 98 F 04/08/24 06:33 Pulse Rate 82 04/08/24 06:33 Respiratory Rate 18 04/08/24 06:33 Blood Pressure 113/82 04/08/24 06:33 Pulse Oximetry 100 04/08/24 06:33 Oxygen Delivery Method Room Air 04/08/24 06:33 MDM - SOB/Dyspnea ECG Data Attestation: I personally reviewed and interpreted this ECG as follows: (Sinus rhythm at 70 bpm, normal axis, normal intervals, no acute ST segment elevation or T wave inversion) Discharge Plan Discharge Patient Disposition: Still a Patient
--- NOTE | 2024-04-08 06:53 | XR_ITS ---
The [address] [address] Patient Name: LEILA HASSAN MRN: [id number] date: 1990 Sex: F Assigned Patient Location: ED.MAIN Current Patient Location: ER Accession/Order Number: [id number] Exam Date: 04/08/2024 07:09 Report Date: 04/08/2024 07:34 At the request of: ANNY MARKER Procedure: XR chest 2V EXAMINATION: XR chest 2V HISTORY: SOB COMPARISON: XR chest and 2722 FINDINGS: LUNGS: No significant pulmonary parenchymal abnormalities. VASCULATURE: No increased pulmonary vasculature. PLEURA: No pneumothorax, effusion, or pleural thickening. CARDIAC: No cardiomegaly or cardiac silhouette abnormality. MEDIASTINUM: No visible mass or adenopathy. BONES: No fracture or visible bone lesion. OTHER: Negative. XR/XR chest 2V IMPRESSION: 1. No acute cardiopulmonary process. Stable chest. Electronically authenticated by: CAROLYNE RALPH Date: 04/08/2024 07:34
[2024-04-08 06:54] VITALS: PULSE 71
[2024-04-08] MEDS: IPRATROPIUM/ALBUTEROL SULFATE 3 ML AMPUL.NEB IH (06:56)
[2024-04-08 06:58] VITALS: PULSE 83; O2SAT 100
[2024-04-08 07:17] LABS: Basophils Absolute Auto 0.1 10^3/uL (0.0-0.1); Basophils Percent Auto 0.5 % (0.2-2.0); Eosinophils Absolute Auto 0.2 10^3/uL (0.0-0.7); Eosinophils Percent Auto 1.9 % (0.9-7.0); Hematocrit 38.1 % (36.0-48.0); Hemoglobin 12.5 g/dL (12.0-16.0); Immature Granulocytes Abs Auto 0.06 10^3/uL (0.00-0.03); Immature Granulocytes Pct Auto 0.5 % (0.0-0.5); Lymphocytes Absolute Auto 1.9 10^3/uL (1.2-3.8); Lymphocytes Percent Auto 14.7 % (20.5-60.0); Mean Corpuscular HGB Conc 32.8 g/dL (29.9-35.2); Mean Corpuscular Hemoglobin 30.2 pg (26.7-34.0); Monocytes Absolute Auto 0.9 10^3/uL (0.3-0.8); Neutrophils Absolute Auto 9.7 10^3/uL (1.4-6.5); Neutrophils Percent Auto 75.4 % (43.0-75.0); Platelet Count 348 10^3/uL (150-450); Red Blood Count 4.14 10^6/uL (4.20-5.40); Red Cell Distribution Width 16.9 % (11.0-15.0); White Blood Count 12.8 10^3/uL (4.0-11.0)
[2024-04-08 07:43] LABS: Alanine Aminotransferase 18 U/L (14-59); Albumin Level 3.8 g/dL (3.4-5.0); Alkaline Phosphatase 68 U/L (46-116); Anion Gap 14.1; Aspartate Amino Transferase 17 U/L (15-37); BUN Creatinine Ratio 17.1; Bilirubin Total 0.3 mg/dL (0.2-1.0); Calcium 9.4 mg/dL (8.5-10.1); Carbon Dioxide 27.1 mmol/L (21.0-32.0); Chloride 105 mmol/L (98-107); Estimated GFR (African America >60 (>=60); Estimated GFR (Non-African Ame >60 (>=60); Globulin 3.7 g/dL; Glucose 93 mg/dL (74-106); Potassium 4.2 mmol/L (3.5-5.1); Sodium 142 mmol/L (136-145); Total Protein 7.5 g/dL (6.4-8.2); Troponin I High Sensitivity <4.0 pg/mL (4.0-51.3)
--- NOTE | 2024-04-08 07:58 | ED_ITS ---
HPI - SOB/Dyspnea General Chief Complaint: Shortness of Breath/Dyspnea Stated Complaint: CHEST PAIN Time Seen by Provider: 04/08/24 06:40 Source: patient Mode of arrival: walk-in Limitations: no limitations History of Present Illness HPI Narrative: 33-year-old female presents to the emergency department and was initially seen by Dr. San and signed out to me after discussing the case with her thoroughly. Please see her full history and physical exam. Related Data Home Medications ?Medication ?Instructions ?Recorded ?Confirmed cholecalciferol (vitamin D3) 125 5,000 unit PO .COMPLEX 06/10/23 04/08/24 mcg (5,000 unit) capsule duloxetine 60 mg capsule,delayed 60 mg PO BID 06/10/23 04/08/24 release acetazolamide 250 mg tablet 250 mg PO Q12H 07/10/23 04/08/24 brexpiprazole 4 mg tablet (Rexulti) 4 mg PO DAILY 07/10/23 04/08/24 buspirone 5 mg tablet 5 mg PO BID 10/14/23 04/08/24 trazodone 100 mg tablet 50 mg PO BEDTIME 10/14/23 04/08/24 semaglutide 0.25 mg or 0.5 mg (2 0.5 mg subcut QWEEK 12/19/23 04/08/24 mg/3 mL) subcutaneous pen injector clonazepam 0.5 mg tablet 0.5 mg PO PRN 04/08/24 04/08/24 lamotrigine 25 mg tablet 25 mg PO TID 04/08/24 04/08/24 naltrexone 50 mg tablet 50 mg PO .once daily 04/08/24 04/08/24 tirzepatide 2.5 mg/0.5 mL 2.5 mg subcut .once a week 04/08/24 04/08/24 subcutaneous pen injector (Mounzach) Previous Rx's ?Medication ?Instructions ?Recorded ondansetron 4 mg disintegrating 4 mg PO Q6H PRN nausea/vomiting 08/14/23 tablet #20 tabs meclizine 25 mg tablet 25 mg PO TID PRN dizziness #20 tabs 10/14/23 Allergies Allergy/AdvReac Type Severity Reaction Status Date / Time buspirone [From BuSpar] Allergy Intermediate tachycardia Verified 04/08/24 06:36 aripiprazole [From Abilify] Allergy Unknown Verified 04/08/24 06:36 COCONUT Allergy Mild Hives Uncoded 04/08/24 06:36 PFSH PFSH Social History Smoking status: Current every day smoker Exam Constitutional Vital Signs, click to edit/add: Last Vital Signs Temp 98 F 04/08/24 06:33 Pulse 83 04/08/24 06:58 Resp 18 04/08/24 06:58 BP 113/82 04/08/24 06:33 Pulse Ox 100 04/08/24 06:58 O2 Del Method Room Air 04/08/24 06:58 Course Vital Signs Vital signs: Vital Signs Temperature 98 F 04/08/24 06:33 Pulse Rate 82 04/08/24 06:33 Respiratory Rate 18 04/08/24 06:33 Blood Pressure 113/82 04/08/24 06:33 Pulse Oximetry 100 04/08/24 06:33 Oxygen Delivery Method Room Air 04/08/24 06:33 Temperature 98 F 04/08/24 06:33 Pulse Rate 83 04/08/24 06:58 Respiratory Rate 18 04/08/24 06:58 Blood Pressure 113/82 04/08/24 06:33 Pulse Oximetry 100 04/08/24 06:58 Oxygen Delivery Method Room Air 04/08/24 06:58 MDM - SOB/Dyspnea MDM Narrative Medical decision making narrative: Her workup is negative, including chest x-ray, troponin, and D-dimer. She is able to be discharged home. Cause uncertain but the possibility of anxiety exists. Treatment diagnosis and follow-up were discussed with the patient. Differential Diagnosis Differential diagnosis: Likely community acquired pneumonia, pulmonary embolism and other (Anxiety) Lab Data Attestation: I reviewed the patient's lab results. Labs: Lab Results 04/08/24 Range/Units 07:05 WBC 12.8 H (4.0-11.0) 10^3/uL RBC 4.14 L (4.20-5.40) 10^6/uL Hgb 12.5 (12.0-16.0) g/dL Hct 38.1 (36.0-48.0) % MCV 92.0 (81.0-99.0) fL MCH 30.2 (26.7-34.0) pg MCHC 32.8 (29.9-35.2) g/dL RDW 16.9 H (11.0-15.0) % Plt Count 348 (150-450) 10^3/uL MPV 11.0 (9.5-13.5) fL Neut % (Auto) 75.4 H (43.0-75.0) % Lymph % (Auto) 14.7 L (20.5-60.0) % [place] % (Auto) 7.0 (1.7-12.0) % Eos % (Auto) 1.9 (0.9-7.0) % Baso % (Auto) 0.5 (0.2-2.0) % Neut # (Auto) 9.7 H (1.4-6.5) 10^3/uL Lymph # (Auto) 1.9 (1.2-3.8) 10^3/uL [place] # (Auto) 0.9 H (0.3-0.8) 10^3/uL Eos # (Auto) 0.2 (0.0-0.7) 10^3/uL Baso # (Auto) 0.1 (0.0-0.1) 10^3/uL Abs Immat Gran (auto) 0.06 H (0.00-0.03) 10^3/uL Imm/Tot Granulo (auto) 0.5 (0.0-0.5) % D-Dimer 0.30 (<=0.59) mg/L FEU Sodium 142 (136-145) mmol/L Potassium 4.2 (3.5-5.1) mmol/L Chloride 105 (98-107) mmol/L Carbon Dioxide 27.1 (21.0-32.0) mmol/L Anion Gap 14.1 BUN 12.0 (7.0-18.0) mg/dL Creatinine 0.70 (0.55-1.02) mg/dL Est GFR ( Amer) >60 (>=60) Est GFR (Non-Af Amer) >60 (>=60) BUN/Creatinine Ratio 17.1 Glucose 93 (74-106) mg/dL Calcium 9.4 (8.5-10.1) mg/dL Total Bilirubin 0.3 (0.2-1.0) mg/dL AST 17 (15-37) U/L ALT 18 (14-59) U/L Alkaline Phosphatase 68 (46-116) U/L Troponin I High Sens <4.0 L (4.0-51.3) pg/mL Total Protein 7.5 (6.4-8.2) g/dL Albumin 3.8 (3.4-5.0) g/dL Globulin 3.7 g/dL Albumin/Globulin Ratio 1.0 Imaging Data Chest x-ray: Radiologist's impression: ITS Impressions Chest X-Ray 04/08/24 06:53 IMPRESSION: 1. No acute cardiopulmonary process. Stable chest. Electronically authenticated by: CAROLYNE RALPH Date: 04/08/2024 07:34 ECG Data Attestation: I personally reviewed and interpreted this ECG as follows: (EKG on my interpretation shows normal sinus rhythm without acute change and a rate of 70.) Discharge Plan Discharge Stand Alone Forms: Portal Instructions Chief Complaint: Shortness of Breath/Dyspnea Clinical Impression: Dyspnea Patient Disposition: Home, Self-Care Time of Disposition Decision: 07:58 Condition: Good Mode of Transportation: Private Vehicle Prescriptions / Home Meds: No Action cholecalciferol (vitamin D3) 125 mcg (5,000 unit) capsule 5,000 unit PO .COMPLEX Hold Instructions: Doctor's Order Rx Instructions: 5,000 units orally weekly; duloxetine 60 mg capsule,delayed release(DR/EC) 60 mg PO BID acetazolamide 250 mg tablet 250 mg PO Q12H Hold Instructions: Doctor's Order Rexulti 4 mg tablet 4 mg PO DAILY Hold Instructions: Doctor's Order semaglutide 0.25 mg or 0.5 mg (2 mg/3 mL) pen injector 0.5 mg subcut QWEEK Rx Instructions: for 4 weeks naltrexone 50 mg tablet 50 mg PO .once daily Mounjaro 2.5 mg/0.5 mL pen injector 2.5 mg SUBCUT .once a week lamotrigine 25 mg tablet 25 mg PO TID clonazepam 0.5 mg tablet 0.5 mg PO PRN ondansetron 4 mg tablet,disintegrating 4 mg PO Q6H PRN (Reason: nausea/vomiting) Qty: 20 0RF Hold Instructions: Doctor's Order buspirone 5 mg tablet 5 mg PO BID Hold Instructions: Doctor's Order trazodone 100 mg tablet 50 mg PO BEDTIME Hold Instructions: Doctor's Order meclizine 25 mg tablet 25 mg PO TID PRN (Reason: dizziness) Qty: 20 0RF Hold Instructions: Doctor's Order Print Language: [place] Instructions: Dyspnea (ED) Referrals: Physician,Non-Staff, MD [Primary Care Provider] - 1 week
== END 2024-04-08 08:04 | disposition home or self-care (01) ==
PROVIDERS: Emergency Medicine; Emergency Provider Emergency Medicine
DX: R06.00 Dyspnea, unspecified (principal); Z98.84 Bariatric surgery status; F17.210 Nicotine dependence, cigarettes, uncomplicated
CPT/HCPCS: 36415; 71046; 80053; 84484; 85025; 85378; 93005; 94640; 99285

== ENCOUNTER 2024-05-23 06:27 | Emergency (ER) | payer MEDICARE, MEDICAID, SELFPAY ==
[2024-05-23 06:31] VITALS: BP 126/93; PULSE 88; TEMP 36.8; O2SAT 100; BMI 29.6
--- OUTSIDE RECORDS SUMMARY | 2024-05-23 06:36 | XMS_ITS | CCD ---
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 Comment on above: Order Comment: Speci men Type: BLOOD SPECIMENOrdering Facility: [facility] Address: [address] [place] [address] Result Comment: Brenda mated Glomerular Filtration Rate [...] actual GFR. Performed By: #### 2 4323-8 ####[facility] LABCLIA [id number] [place] [address] Glucose [Mass/Vol] 98 mg/dL Normal 74-99 [facility] Comment on above: Order Comment: Philip valencia Type: BLOOD SPECIMENOrdering Facility: [facility] Address: [address] [id number] Result Comment: The [place] Diabetes Association (ADA) provides guidance for cutoff [...] Standards of Medical Care in Diabetes 2016, [place] Diabetes Association. Diabetes Care. 2016.39(Suppl 1). Performed By: #### 2 4323-8 ####[facility] LABCLIA [id number] [place] [address] Potassium [Moles/Vol] 4.5 mmol/L Normal 3.7-5.1 [facility] Comment on above: Order Comment: Speci men Type: BLOOD SPECIMENOrdering Facility: [facility] Address: [address] [place] [address] Performed By: #### 2 4323-8 ####[facility] LABCLIA [id number] [place] [address] Protein [Mass/Vol] 7.3 g/dL Normal 6.3-8.0 [facility] Comment on above: Order Comment: Speci men Type: BLOOD SPECIMENOrdering Facility: [facility] Address: [address] [place] [address] Performed By: #### 2 4323-8 ####[facility] LABCLIA [id number] [place] [address] Sodium [Moles/Vol] 142 mmol/L Normal 136-144 [facility] Comment on above: Order Comment: Speci men Type: BLOOD SPECIMENOrdering Facility: [facility] Address: [address] [place] [address] Performed By: #### 2 4323-8 ####[facility] LABCLIA [id number] [place] [address] Urea nitrogen [Mass/Vol] 10 mg/dL Normal 7-21 [facility] Comment on above: Order Comment: Speci men Type: BLOOD SPECIMENOrdering Facility: [facility] Address: [address] [place] [address] Performed By: #### 2 4323-8 ####[facility] LABCLIA [id number] [place] [address] HCV Ab Ser Qlon 02-25-2024 HCV Ab Ql (S) Negative Normal Negative [facility] Comment on above: Order Comment: Speci men Type: BLOOD SPECIMENOrdering Facility: [facility] Address: [address] [place] [address] Result Comment: The result suggests no evidence of active infection with Hepatitis C virus. Should recent infection be suspected, repeat testing may be considered 4-6 weeks after this draw. Performed By: #### 1 6128-1 ####[facility] LABCLIA [id number] [place] [address] [place] HIV 1+2 Ab IA Qlon 4 HIV 1 and 2 Ab IA.rapid Nom (S/P/Bld) Normal [facility] Comment on above: Order Comment: Speci men Type: BLOOD SPECIMENOrdering Facility: [facility] Address: [address] [place] [address] Result Comment: Test not indicated. Performed By: #### 3 1201-7 ####[facility] LABCLIA [id number] [place] [address] [place] HIV 1+2 Ab+HIV1 p24 Ag IA Ql Non-Reactive Normal Nonreactive [facility] Comment on above: Order Comment: Speci men Type: BLOOD SPECIMENOrdering Facility: [facility] Address: [address] [place] [address] Performed By: #### 3 1201-7 ####[facility] LABIA [id number] [place] [address] [place] HIV immunoassay testing algorithm interpretation (S/P/Bld) [Interp] Normal [facility] Comment on above: Order Comment: Speci men Type: BLOOD SPECIMENOrdering Facility: [facility] Address: [address] [place] [address] Result Comment: No e vidence of HIV-1 or HIV-2 infection. Should recent infection be suspected, repeat testing may be considered 2-3 weeks after this draw. [place] Rev. Code 3701.243(E): This information has been [...] or diagnoses. Performed By: #### 3 1201-7 ####[facility] [id number] [address] OF [facility] HbA1c (Bld)on 02-25-2024 Average glucose Estimated from glycated hemoglobin (Bld) [Mass/Vol] 111 mg/dL Normal [facility] Comment on above: Order Comment: Speci men Type: BLOOD SPECIMENOrdering Facility: [facility] Address: [address] [place] [address] Result Comment: eAG: (Estimated average glucose) is a calculated value from HgbA1c and is administrative representative of the average blood glucose level in the last 2-3 month period. Performed By: #### 5 5454-3 ####[facility] [id number] [address] HbA1c (Bld) [Mass fraction] 5.5 % Normal 4.3-5.6 [facility] Comment on above: Order Comment: Cecili men Type: BLOOD SPECIMENOrdering Facility: [facility] Address: [address] [place] [address] Result Comment: Amer [place] Diabetes Association guidelines indicate that patients with HgbA1c in the range 5.7-6.4% are at increased risk for development of diabetes, and intervention by lifestyle modification may be beneficial. HgbA1c greater or equal to 6.5% is considered diagnostic of diabetes. Performed By: #### 5 5454-3 ####[facility] [id number] [address] OF [place] Lipid 1996 panelon 4 Cholesterol [Mass/Vol] 142 mg/dL Normal <200 [facility] Comment on above: Order Comment: Speci men Type: BLOOD SPECIMENOrdering Facility: [facility] Address: [address] [place] [address] Result Comment: <200 mg/dL, Desirable 200-239 mg/dL, Borderline high >239 mg/dL, High Performed By: #### 2 4331-1 ####[facility] LABCLIA [id number] [address] LABCLIA [id number] [place] [address] Cholesterol in HDL [Mass/Vol] 72 mg/dL Normal >39 [facility] Comment on above: Order Comment: Speci men Type: BLOOD SPECIMENOrdering Facility: [facility] Address: [address] [place] [address] Result Comment: 40-5 9 mg/dL, Acceptable >59 mg/dL, High: Negative risk factor for coronary heart disease <40 mg/dL, Low: Positive risk factor for coronary heart disease Performed By: #### 2 4331-1 ####[facility] LABCLIA [id number] [address] LABCLIA [id number] [place] [address] Cholesterol in LDL [Mass/Vol] 60 mg/dL Normal <100 [facility] Comment on above: Order Comment: Speci men Type: BLOOD SPECIMENOrdering Facility: [facility] Address: [address] [place] [address] Result Comment: <100 mg/dL, Optimal 100-129 mg/dL, Near optimal/above optimal 130-159 mg/dL, Borderline high 160-189 mg/dL, High >189 mg/dL, Very high Secondary prevention optimal LDL Cholesterol levels are recommended to be < 70 mg/dL Performed By: #### 2 4331-1 ####[facility] LABCLIA [id number] [address] [address] [facility] LABCLIA [id number] [place] [address] Cholesterol in LDL/Cholesterol in HDL [Mass ratio] 0.83 {ratio} Normal <2.54 [facility] Comment on above: Order Comment: Philip men Type: BLOOD SPECIMENOrdering Facility: [facility] Address: [address] [place] [address] Result Comment: Eric kasper: 1. National Cholesterol Education Program ATP III Guideline At-A-Glance Quick Desk Reference: National Heart, Lung, and Blood [place]. National Institutes of Health. 2001: NIH Publication No. 01-3305. 2. An International Atherosclerosis Society position paper: global recommendations for the management of dyslipidemia: executive summary, Atherosclerosis. 2014: 232(2):410-413. Performed By: #### 2 4331-1 ####[facility] LABCLIA [id number] [address] LABCLIA [id number] [place] [address] Cholesterol in VLDL [Mass/Vol] 10 mg/dL Normal <30 [facility] Comment on above: Order Comment: Philip men Type: BLOOD SPECIMENOrdering Facility: [facility] Address: [address] [place] [address] Performed By: #### 2 4331-1 ####[facility] LABCLIA [id number] [address] LABCLIA [id number] [place] [address] Cholesterol non HDL [Mass/Vol] 70 mg/dL Normal <130 [facility] Comment on above: Order Comment: Philip birmingham Type: BLOOD SPECIMENOrdering Facility: [facility] Address: [address] [place] [address] Result Comment: <130 mg/dL, Optimal 130-159 mg/dL, Near optimal/above optimal 160-189 mg/dL, Borderline high 190-219 mg/dL, High >219 mg/dL, Very high Secondary prevention optimal non HDL Cholesterol levels are recommended to be <100 mg/dL Performed By: #### 2 4331-1 ####[facility] LABCLIA [id number] [address] [address] [facility] LABCLIA [id number] [place] [address] Cholesterol.total/Cho lesterol in HDL [Mass ratio] 1.97 {ratio} Normal <5.10 [facility] Comment on above: Order Comment: Speci men Type: BLOOD SPECIMENOrdering Facility: [facility] Address: [address] [place], [place] [address] Performed By: #### 2 4331-1 ####[facility] LABCLIA [id number] [address] LABCLIA [id number] [place] [address] FASTING TIME 12 hrs Normal [facility] Comment on above: Order Comment: Speci men Type: BLOOD SPECIMENOrdering Facility: [facility] Address: [address] [place] [address] Performed By: #### 2 4331-1 ####[facility] LABCLIA [id number] [address] LABCLIA [id number] [place] [address] Triglyceride [Mass/Vol] 51 mg/dL Normal <150 [facility] Comment on above: Order Comment: Speci men Type: BLOOD SPECIMENOrdering Facility: [facility] Address: [address] [place], [place] [address] Result Comment: <150 mg/dL, Normal 150-199 mg/dL, Borderline high 200-499 mg/dL, High >499 mg/dL, Very high Performed By: #### 2 4331-1 ####[facility] LABCLIA [id number] [address] [id number] [facility] LABCLIA [id number] [place] [address] CBC with Diffon 01-13-2024 Abs. Basophil 0.08 k/uL Normal 0.00-0.20 [facility] Comment on above: Performed By: #### ALFONSO PFEIFFER, CDP #### [address] [address] [employer] [facility]: Harpal Adair MD Abs.Imm.Granulocyte 0.05 k/uL Normal 0.00-0.30 [facility] Comment on above: Performed By: #### ALFONSO PFEIFFER, CDP #### [facility] [email or web address] [address] [place] [address] [employer] [facility]: Harpal Adair MD Abs.Neutrophil (Seg) 7.68 k/uL Normal 1.50-8.10 [facility] Comment on above: Performed By: #### ALFONSO PFEIFFER, CDP #### [address] [address] [employer] [facility]: Harpal Adair MD Basophils/100 WBC (Bld) 1 % Normal 0-2 [facility] Comment on above: Performed By: #### ALFONSO PFEIFFER, CDP #### [facility] [email or web address] [address] [place] [address] [employer] [facility]: Harpal Adair MD Eosinophils (Bld) [#/Vol] 0.25 10*3/uL Normal 0.00-0.44 [facility] Comment on above: Performed By: #### ALFONSO PFEIFFER, CDP #### [facility] [email or web address] [address] [place] [address] [employer] [facility]: Harpal Adair MD Eosinophils/100 WBC (Bld) 2 % Normal 1-4 [facility] Comment on above: Performed By: #### ALFONSO PFEIFFER, CDP #### [facility] [email or web address] [address] [place] [address] [employer] [facility]: Harpal Adair MD Erythrocyte distribution width (RBC) [Ratio] 18.6 % High 11.8-14.4 [facility] Comment on above: Performed By: #### ALFONSO PFEIFFER, CDP #### [facility] [email or web address] [address] [place] [address] [employer] [facility]: Harpal Adair MD Hematocrit (Bld) [Volume fraction] 36.7 % Normal 36.3-47.1 [facility] Comment on above: Performed By: #### ALFONSO PFEIFFER, CDP #### [facility] [address] [place] [address] [employer] [facility]: Harpal Adair MD Hemoglobin (Bld) [Mass/Vol] 11.3 g/dL Low 11.9-15.1 [facility] Comment on above: Performed By: #### ALFONSO PFEIFFER, CDP #### [facility] [email or web address] [address] [place] [address] [employer] [facility]: Harpal Adair MD Immature granulocytes/100 WBC (Bld) 0 % Normal 0 [facility] Comment on above: Performed By: #### ALFONSO PFEIFFER, CDP #### [facility] [email or web address] [address] [place] [address] [employer] [facility]: Harpal Adair MD Lymphocytes (Bld) [#/Vol] 2.30 10*3/uL Normal 1.10-3.70 [facility] Comment on above: Performed By: #### ALFONSO PFEIFFER, CDP #### [facility] [address] [place] [address] [employer] [facility]: Harpal Adair MD Lymphocytes/100 WBC (Bld) 21 % Low 24-43 [facility] Comment on above: Performed By: #### ALFONSO PFEIFFER, CDP #### [facility] [email or web address] [address] [place] [address] [employer] [facility]: Harpal Adair MD MCH (RBC) [Entitic mass] 28.4 pg Normal 25.2-33.5 [facility] Comment on above: Performed By: #### ALFONSO PFEIFFER, CDP #### [address] [address] [employer] [facility]: Harpal Adair MD MCHC (RBC) [Mass/Vol] 30.8 g/dL Normal 28.4-34.8 [facility] Comment on above: Performed By: #### ALFONSO PFEIFFER, CDP #### [facility] [email or web address] [address] [place] [address] [employer] [facility]: Harpal Adair MD MCV (RBC) [Entitic vol] 92.2 fL Normal 82.6-102.9 [facility] Comment on above: Performed By: #### ALFONSO PFEIFFER, CDP #### [address] [address] [employer] [facility]: Harpal Adair MD Monocytes (Bld) [#/Vol] 0.77 10*3/uL Normal 0.10-1.20 [facility] Comment on above: Performed By: #### ALFONSO PFEIFFER, CDP #### [address] [address] [employer] [facility]: Harpal Adair MD Monocytes/100 WBC (Bld) 7 % Normal 3-12 [facility] Comment on above: Performed By: #### ALFONSO PFEIFFER, CDP #### [facility] [email or web address] [address] [place] [address] [employer] [facility]: Harpal Adair MD Neutrophil (Seg) 69 % High 36-65 [facility] Comment on above: Performed By: #### ALFONSO PFEIFFER, CDP #### [facility] [email or web address] [address] [place] [address] [employer] [facility]: Harpal Adair MD NRBC Automated 0.0 per 100 WBC Normal 0.0 [facility] Comment on above: Performed By: #### ALFONSO PFEIFFER, CDP #### [address] [address] [facility] [facility]: Harpal Adair MD Platelet mean volume (Bld) [Entitic vol] 11.4 fL Normal 8.1-13.5 [facility] Comment on above: Performed By: #### ALFONSO PFEIFFER, CDP #### [address] [address] [employer] [facility]: Harpal Adair MD Platelets (Bld) [#/Vol] 387 10*3/uL Normal 138-453 [facility] Comment on above: Performed By: #### ALFONSO PFEIFFER, CDP #### [address] [address] [employer] [facility]: Harpal Adair MD RBC (Bld) [#/Vol] 3.98 10*6/uL Normal 3.95-5.11 [facility] Comment on above: Performed By: #### ALFONSO PFEIFFER, CDP #### [facility] [email or web address] [address] [place] [address] [employer] [facility]: Harpal Adair MD RBC morphology finding Nom (Bld) ANISOCYTOSIS PRESENT Normal [facility] Comment on above: Performed By: #### ALFONSO PFEIFFER, CDP #### [facility] [email or web address] [address] [place] [address] [employer] [facility]: Harpal Adair MD WBC (Bld) [#/Vol] 11.1 10*3/uL Normal 3.5-11.3 [facility] Comment on above: Performed By: #### ALFONSO PFEIFFER, CDP #### [facility] [email or web address] [address] [place] [address] [employer] [facility]: Harpal Adair MD Ferritinon 01-13-2024 Ferritin [Mass/Vol] 9 ng/mL Low 13-150 [facility] Comment on above: Result Comment: FERRITIN Reference Ranges: Adult Males 20 - 60 years: 30 - 400 ng/mL Adult females 17 - 60 years: 13 - 150 ng/mL Adults greater than 60 years: no established reference range Pediatrics: no established reference range Performed By: #### ALFONSO PFEIFFER, CDP #### [employer] [address] [place] [address] [employer] [facility]: Harpal Adair MD Iron Binding Cap.on 01-13-20 24 % Fe Saturation 9 % Low 20-55 [facility] Comment on above: Performed By: #### ALFONSO PFEIFFER, CDP #### [employer] [address] [place] [address] [employer] [facility]: Harpal Adair MD Iron [Mass/Vol] 37 ug/dL Normal 37-145 [facility] Comment on above: Performed By: #### ALFONSO PFEIFFER, CDP #### [employer] [address] [place] [address] [employer] [facility]: Harpal Adair MD Total Fe Binding Cap 390 ug/dL Normal 250-450 [facility] Comment on above: Performed By: #### ALFONSO PFEIFFER, CDP #### [employer] [address] [place] [address] [employer] [facility]: Harpal Adair MD Unbound Fe Bind Cap 353 ug/dL High 112-347 [facility] Comment on above: Performed By: #### ALFONSO PFEIFFER, CDP #### [employer] [address] [place] [address] [employer] [facility]: MD Ernesto Naylor 01-05-2024 GLORIA Telephone ([facility]) -------- CASSIASHAZIA MALDONADO ([id number]) 1990 F Date Time Provider Department 01/05/24 ELIA BAIRES [facility] During your visit today, we recorded the [...] 60 mg by mouth once daily. - bdzzpypgbqus-kqb-jcme-FA -vit K (BARIATRIC MULTIVITAMINS) 45 mg iron- [...] Status:Closed by ELIA BAIRES on 01/05/24 Normal [facility] TOXICOLOGY SCRN W/CONF,URINE on 01-05-2024 Amphetamines Confirm (U) [Mass/Vol] Negative Negative [facility] Comment on above: Cutoff threshold at 1000 ng/mL. Barbiturates Urine Negative Negative [facility] Comment on above: Cutoff threshold at 200 ng/mL. Benzodiazepines Urine Negative Negative [facility] Comment on above: Cutoff threshold at 200 ng/mL. Cannabinoids Screen Ql (U) Sent for confirmation Abnormal Negative [facility] Comment on above: Cutoff threshold at 50 ng/mL. Cocaine Ql (U) Negative Negative [facility] Comment on above: Cutoff threshold at 300 ng/mL. Ethanol (U) [Mass/Vol] mg/dL NINF - 11 mg/dL [facility] Interpretation and review of laboratory results Abnormal [facility] Opiates Screen Ql (U) Negative Negative [facility] Comment on above: Cutoff threshold at 300 ng/mL. oxyCODONE cutoff Screen (U) [Mass/Vol] Negative Negative [facility] Comment on above: Cutoff threshold at 100 ng/mL. Phencyclidine Ql (U) Negative Negative [facility] Comment on above: Cutoff threshold at 25 ng/mL. Immunoassay screen o nly. Cross reactivity with other substances can occur with immunoassay screening. Detection of any drug(s) in this urine toxicology panel is presumptive only. These tests are for medical purposes only and should not be used for compliance monitoring, legal, or forensic use. [facility] CANNABINOID CONF, URon 01-03 Cannabinoids Confirm (U) [Mass/Vol] 153 ng/mL High <16 [facility] Comment on above: Order Comment: Speci men Type: URINE SPECIMENOrdering Facility: [facility] Address: [address] [place] [address] Result Comment: Tetr ahydrocannabinol carboxylic acid (THCA) is a metabolite of stdvp-3-zdxdrbhyficojnkhcxvm which is the main active component of marijuana. Presence of THCA indicates use of marijuana. Performed By: #### C ANNCONFU ####[facility] [id number] [address] [place] NOTE ([facility]) Normal [facility] Comment on above: Order Comment: Speci men Type: URINE SPECIMENOrdering Facility: [facility] Address: [address] [place] [address] Result Comment: This test is for medical use only. This test was developed and its performance characteristics determined by [facility]'s [facility] [place] ([facility]). It has not been cleared or approved by the FDA. -[facility] is regulated under CLIA as qualified to perform high-complexity testing. This test is used for clinical purposes. It should not be regarded as investigational or for research. Performed By: #### C ANNCONFU ####[facility] LABIA [id number] [address] [place] CNOVon 01-04-2024 CNOV Office Visit (FPNRMO C) -------- SHAZIA CHOU ([id number]) 1990 F Date Time Provider Department 01/04/24 9:20 AM EL[facility] BAIRES [facility] During your visit today, we recorded the following information about you: Pulse Blood pressure Weight Height 92/minute 123/86 92.5 kg 1.702 m Elia Baires DO 01/04/2024 2:25 PM Signed ASSESSMENT/PLAN: 1. Panic [...] She says that she is originally from [facility] however came up to here today to [...] new psychiatrist at [facility] in [place]. She also sees a counselor weekly. Current [...] in 1 (more content not included)... Normal [facility] SPECIMEN VALIDITY, URINEon 0 01-04-2024 CHROMATE,URINE <10 Normal <50 [facility] Comment on above: Order Comment: Speci men Type: URINE SPECIMENOrdering Facility: [facility] Address: [address] [place] [address] Performed By: #### L [id number] ####[facility] LABCLIA [id number] [place] [address] [place] CREATININE,URINE 33.7 mg/dL Normal 20.0-300.0 [facility] Comment on above: Order Comment: Speci men Type: URINE SPECIMENOrdering Facility: [facility] Address: [address] [place] [address] Performed By: #### L [id number] ####[facility] LABCLIA [id number] [place] [address] [place] NITRITES,URINE <50 Normal <500 [facility] Comment on above: Order Comment: Speci men Type: URINE SPECIMENOrdering Facility: [facility] Address: [address] [place] [address] Performed By: #### L [id number] ####[facility] LABCLIA [id number] [place] [address] [place] OXIDANTS,URINE 70 mg/L Normal <200 [facility] Comment on above: Order Comment: Speci men Type: URINE SPECIMENOrdering Facility: [facility] Address: [address] [place] [address] Performed By: #### L [id number] ####[facility] LABCLIA [id number] [place] [address] [place] pH (U) 5.6 [pH] Normal 4.5-8.0 [facility] Comment on above: Order Comment: Speci men Type: URINE SPECIMENOrdering Facility: [facility] Address: [address] [place] [address] Performed By: #### L [id number] ####[facility] LABIA [id number] [place] [address] [place] SPEC GRAVITY,UR 1.019 Normal 1.003-1.035 [facility] Comment on above: Order Comment: Speci men Type: URINE SPECIMENOrdering Facility: [facility] Address: [address] [place] [address] Performed By: #### L [id number] ####[facility] LABIA [id number] [place] [address] [place] SPECIMEN VALIDITY QUALITY Specimen quality results within acceptable limits Normal [facility] Comment on above: Order Comment: Speci men Type: URINE SPECIMENOrdering Facility: [facility] Address: [address] [place] [address] Performed By: #### L [id number] ####[facility] LABIA [id number] [place] [address] [place] TOXICOLOGY SCRN W/CONF,URINE on 01-04-2024 Amphetamines Confirm (U) [Mass/Vol] Negative Normal Negative [facility] Comment on above: Order Comment: Speci men Type: URINE SPECIMENOrdering Facility: [facility] Address: [address] [place] [address] Result Comment: Cuto ff threshold at 1000 ng/mL. Performed By: #### U TOXRF ####[facility] LABIA [id number] [place] [address] [place] BARBITURATES, URINE Negative Normal Negative [facility] Comment on above: Order Comment: Speci men Type: URINE SPECIMENOrdering Facility: [facility] Address: [address] [place] [address] Result Comment: Cuto ff threshold at 200 ng/mL. Performed By: #### U TOXRF ####[facility] LABCLIA [id number] [place] [address] [place] BENZODIAZEPINES, UR Negative Normal Negative [facility] Comment on above: Order Comment: Speci men Type: URINE SPECIMENOrdering Facility: [facility] Address: [address] [place] [address] Result Comment: Cuto ff threshold at 200 ng/mL. Performed By: #### U TOXRF ####[facility] LABCLIA [id number] [place] [address] [place] Cannabinoids Screen Ql (U) Sent for confirmation Abnormal Negative [facility] Comment on above: Order Comment: Speci men Type: URINE SPECIMENOrdering Facility: [facility] Address: [address] [place] [address] Result Comment: Cuto ff threshold at 50 ng/mL. Performed By: #### U TOXRF ####[facility] LABCLIA [id number] [place] [address] [place] Cocaine Ql (U) Negative Normal Negative [facility] Comment on above: Order Comment: Speci men Type: URINE SPECIMENOrdering Facility: [facility] Address: [address] [place] [address] Result Comment: Cuto ff threshold at 300 ng/mL. Performed By: #### U TOXRF ####[facility] LABCLIA [id number] [place] [address] [place] Ethanol (U) [Mass/Vol] <11 Normal <11 [facility] Comment on above: Order Comment: Speci men Type: URINE SPECIMENOrdering Facility: [facility] Address: [address] [place] [address] Performed By: #### U TOXRF ####[facility] LABIA [id number] [place] [address] [place] Opiates Screen Ql (U) Negative Normal Negative [facility] Comment on above: Order Comment: Speci men Type: URINE SPECIMENOrdering Facility: [facility] Address: [address] [place] [address] Result Comment: Cuto ff threshold at 300 ng/mL. Performed By: #### U TOXRF ####[facility] LABIA [id number] [place] [address] [place] oxyCODONE cutoff Screen (U) [Mass/Vol] Negative Normal Negative [facility] Comment on above: Order Comment: Speci men Type: URINE SPECIMENOrdering Facility: [facility] Address: [address] [place] [address] Result Comment: Cuto ff threshold at 100 ng/mL. Performed By: #### U TOXRF ####[facility] LABIA [id number] [place] [address] [place] Phencyclidine Ql (U) Negative Normal Negative [facility] Comment on above: Order Comment: Speci men Type: URINE SPECIMENOrdering Facility: [facility] Address: [address] [place] [address] Result Comment: Cuto ff threshold at 25 ng/mL. 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 Date of Service: 12/31/23 ECG/ECG 12 lead [...] needs review Confirmed by JULES JANSEN DO ([id number]) on 01/01/2024 6:11:00 AM Referred By: Electronically Signed By:JULES JANSEN DO Transcribed By: MUS Signed By Jules Jansen DO 12/31 0611 Normal [facility] ED Noteon 2023 ED Note [id number]#[id number] F Normal [facility] Activated partial thrombopla stin time (aPTT) in platelet poor plasma by coagulation aOrdered By: Marii Christiansen on 12-10-2023 aPTT Coag (PPP) [Time] 28.8 s 25.1-36.5 [facility] Comment on above: A hematocrit value g reater than 55% may lead to inaccurate results in coagulation testing. Patients having hematocrit values >55% require a special collection tube for coagulation studies. Please contact the laboratory at [phone] for redraw instructions. Automated basophil %Ordered By: Marii Christiansen on 12-10-2023 Basophils/100 WBC (Bld) 1.0 % Normal . [facility] Comment on above: Performed By: #### B DATABASE MANAGEMENT SPECIALIST, CK, HS TROP, PT, PTT, BMP, PHOS, MG, T4F, TSH3, HCGQUAL, CBC #### [facility] [address] [place] [address] Automated basophil countOrde red By: Marii Christiansen on 12-10-2023 Basophils (Bld) [#/Vol] 0.1 10*3/uL Normal 0.0-0.2 [facility] Comment on above: Result Comment: PERF ORMED BY: [place] [address] PATHOLOGIST LAP MACHINE OPERATOR JOHNIE BOSS M.D. Performed By: #### B DATABASE MANAGEMENT SPECIALIST, CK, HS TROP, PT, PTT, BMP, PHOS, MG, T4F, TSH3, HCGQUAL, CBC #### [address] Automated blood monocyte cou ntOrdered By: Marii Christiansen on 12-10-2023 Monocytes (Bld) [#/Vol] 0.5 10*3/uL Normal 0.0-0.8 [facility] Comment on above: Performed By: #### B DATABASE MANAGEMENT SPECIALIST, CK, HS TROP, PT, PTT, BMP, PHOS, MG, T4F, TSH3, HCGQUAL, CBC #### [address] Automated eosinophil %Ordere d By: Marii Christiansen on 12-10-2023 Eosinophils/100 WBC (Bld) 1.7 % Normal . [facility] Comment on above: Performed By: #### B DATABASE MANAGEMENT SPECIALIST, CK, HS TROP, PT, PTT, BMP, PHOS, MG, T4F, TSH3, HCGQUAL, CBC #### [address] Automated eosinophil countOr dered By: Marii Christiansen on 12-10-2023 Eosinophils (Bld) [#/Vol] 0.1 10*3/uL Normal 0.0-0.45 [facility] Comment on above: Performed By: #### B DATABASE MANAGEMENT SPECIALIST, CK, HS TROP, PT, PTT, BMP, PHOS, MG, T4F, TSH3, HCGQUAL, CBC #### [address] Automated monocyte %Ordered By: Marii Christiansen on 12-10-2023 Monocytes/100 WBC (Bld) 6.4 % Normal . [facility] Comment on above: Performed By: #### B DATABASE MANAGEMENT SPECIALIST, CK, HS TROP, PT, PTT, BMP, PHOS, MG, T4F, TSH3, HCGQUAL, CBC #### [address] Automated neutrophil %Ordere d By: Marii Christiansen on 12-10-2023 Neutrophils/100 WBC (Bld) 69.0 % Normal . [facility] Comment on above: Performed By: #### B DATABASE MANAGEMENT SPECIALIST, CK, HS TROP, PT, PTT, BMP, PHOS, MG, T4F, TSH3, HCGQUAL, CBC #### [address] BNP ser/plasOrdered By: Priya Christiansen on 12-10-2023 Natriuretic peptide B (Bld) [Mass/Vol] 12.0 pg/mL Normal 5-100 [facility] Comment on above: Result Comment: PERF ORMED BY: [place] [address] PATHOLOGIST LAP MACHINE OPERATOR JOHNIE BOSS M.D. Performed By: #### B DATABASE MANAGEMENT SPECIALIST, CK, HS TROP, PT, PTT, BMP, PHOS, MG, T4F, TSH3, HCGQUAL, CBC #### [address] Basic Metabolic Panelon 11-13 Creatinine Clr Calc Pharmacy 144.76 Normal [facility] Comment on above: Performed By: #### B DATABASE MANAGEMENT SPECIALIST, CK, HS TROP, PT, PTT, BMP, PHOS, MG, T4F, TSH3, HCGQUAL, CBC ####[address] GFR/1.73 sq M.predicted MDRD (S/P/Bld) [Vol rate/Area] mL/min/{1.73_m2} Normal [facility] Comment on above: Performed By: #### B DATABASE MANAGEMENT SPECIALIST, CK, HS TROP, PT, PTT, BMP, PHOS, MG, T4F, TSH3, HCGQUAL, CBC ####[address] Calcium [Mass/volume] in Ser um or PlasmaOrdered By: Marii Christiansen on 12-10-2023 Calcium [Mass/Vol] 9.3 mg/dL Normal 8.6-10.3 [facility] Comment on above: Performed By: #### B DATABASE MANAGEMENT SPECIALIST, CK, HS TROP, PT, PTT, BMP, PHOS, MG, T4F, TSH3, HCGQUAL, CBC ####[facility] Carbon dioxide, total [Moles /volume] in Serum or PlasmaOrdered By: Marii Christiansen on 12-10-2023 CO2 [Moles/Vol] 26.2 mmol/L Normal 21.0-31.0 [facility] Comment on above: Performed By: #### B DATABASE MANAGEMENT SPECIALIST, CK, HS TROP, PT, PTT, BMP, PHOS, MG, T4F, TSH3, HCGQUAL, CBC ####[facility] Chloride [Moles/volume] in S tushar or PlasmaOrdered By: Marii Christiansen on 12-10-2023 Chloride [Moles/Vol] 108 mmol/L High 98-107 [facility] Comment on above: Performed By: #### B DATABASE MANAGEMENT SPECIALIST, CK, HS TROP, PT, PTT, BMP, PHOS, MG, T4F, TSH3, HCGQUAL, CBC ####[facility] Choriogonadotropin.beta subu nit [Units/volume] in Serum or PlasmaOrdered By: Marii Christiansen on 12-10-2023 HCG.beta subunit Qn Negative [facility] Complete Blood Count Auto Di ffon 12-10-2023 Mean Corpuscular HGB Conc 32.5 g/dL Normal 32.0-35.0 [facility] Comment on above: Performed By: #### B DATABASE MANAGEMENT SPECIALIST, CK, HS TROP, PT, PTT, BMP, PHOS, MG, T4F, TSH3, HCGQUAL, CBC #### [facility] [address] [place] [address] [place] Monocytes/100 WBC (Bld) 16.94 % Normal 0.00-20.00 [facility] Comment on above: Performed By: #### B DATABASE MANAGEMENT SPECIALIST, CK, HS TROP, PT, PTT, BMP, PHOS, MG, T4F, TSH3, HCGQUAL, CBC #### [facility] [address] NRBC% 0.1 /100{WBC} Normal 0-0.5 [facility] Comment on above: Performed By: #### B DATABASE MANAGEMENT SPECIALIST, CK, HS TROP, PT, PTT, BMP, PHOS, MG, T4F, TSH3, HCGQUAL, CBC #### [address] Creatine kinase [Enzymatic a ctivity/volume] in Serum or PlasmaOrdered By: Marii Christiansen on 12-10-2023 CK [Catalytic activity/Vol] 90 U/L Normal 30-223 [facility] Comment on above: Performed By: #### B DATABASE MANAGEMENT SPECIALIST, CK, HS TROP, PT, PTT, BMP, PHOS, MG, T4F, TSH3, HCGQUAL, CBC ####[facility] Creatinine [Mass/volume] in Serum or PlasmaOrdered By: Marii Christiansen on 12-10-2023 Creatinine [Mass/Vol] 0.63 mg/dL Normal 0.60-1.20 [facility] Comment on above: Performed By: #### B DATABASE MANAGEMENT SPECIALIST, CK, HS TROP, PT, PTT, BMP, PHOS, MG, T4F, TSH3, HCGQUAL, CBC ####[place] [id number] [address] ECG 12 lead ECGon 12-10-2023 ECG 12 lead ECG [facility] [place] [address] [place] [address] Electrocardiograph Report Signed Patient: Shazia Chou MR#: [id number] : 1990 Acct:[id number] Age/Sex: 32 / F ADM Date: 12/10/23 Loc: ER Room: Type: [facility] ER Attending Dr: Ordering Provider: [...] ms Normal sinus rhythm Confirmed by Jaylon YNAES DO ([id number]) on 12/10/2023 3:20:27 PM Referred By: Electronically Signed By:Jaylon YANES DO Transcribed By: MUS Signed By Jaylon Yanes DO 0 12/10/23 1520 Normal [facility] Erythrocyte distribution wid th [Ratio] by Automated countOrdered By: Marii Christiansen on 12-10-2023 Erythrocyte distribution width (RBC) [Ratio] 18.2 % High 11.9-15.3 [facility] Comment on above: Performed By: #### B DATABASE MANAGEMENT SPECIALIST, CK, HS TROP, PT, PTT, BMP, PHOS, MG, T4F, TSH3, HCGQUAL, CBC #### [facility] [address] Erythrocytes [#/volume] in B lood by Automated countOrdered By: Marii Christiansen on 12-10-2023 RBC (Bld) [#/Vol] 3.88 10*6/uL Normal 3.60-5.00 [facility] Comment on above: Performed By: #### B DATABASE MANAGEMENT SPECIALIST, CK, HS TROP, PT, PTT, BMP, PHOS, MG, T4F, TSH3, HCGQUAL, CBC #### [facility] [address] Glucose [Mass/volume] in Ser um or PlasmaOrdered By: Marii Christiansen on 12-10-2023 Glucose [Mass/Vol] 84 mg/dL Normal 70-100 [facility] Comment on above: ADA recommended refe rence rangeRandom Glucose Reference Range is dependent on time and content of last meal. Glucose of more than 200 mg/dL in a nonstressed, ambulatory subject supports the diagnosis of Diabetes Mellitus. Result Comment: [place] om Glucose Reference Range is dependent on time and content of last meal. Glucose of more than 200 mg/dL in a nonstressed, ambulatory subject supports the diagnosis of Diabetes Mellitus. ADA recommended reference range Performed By: #### B DATABASE MANAGEMENT SPECIALIST, CK, HS TROP, PT, PTT, BMP, PHOS, MG, T4F, TSH3, HCGQUAL, CBC ####[facility] [id number] [address] HCG,Qualitative Serumon 11-13 HCG,Qualitative Serum Negative Normal [facility] Comment on above: Result Comment: PERF ORMED BY: [place] [address] PATHOLOGIST LAP MACHINE OPERATOR JOHNIE BOSS M.D. Performed By: #### B DATABASE MANAGEMENT SPECIALIST, CK, HS TROP, PT, PTT, BMP, PHOS, MG, T4F, TSH3, HCGQUAL, CBC ####[place] [id number] [address] Hematocrit [Volume Fraction] of Blood by Automated countOrdered By: Marii Christiansen on 12-10-2023 Hematocrit (Bld) [Volume fraction] 34.4 % Normal 34.0-46.4 [facility] Comment on above: Performed By: #### B DATABASE MANAGEMENT SPECIALIST, CK, HS TROP, PT, PTT, BMP, PHOS, MG, T4F, TSH3, HCGQUAL, CBC #### [facility] [address] [place] [address] Hemoglobin [Mass/volume] in BloodOrdered By: Marii Christiansen on 12-10-2023 Hemoglobin (Bld) [Mass/Vol] 11.2 g/dL Low 11.8-15.4 [facility] Comment on above: Performed By: #### B DATABASE MANAGEMENT SPECIALIST, CK, HS TROP, PT, PTT, BMP, PHOS, MG, T4F, TSH3, HCGQUAL, CBC #### [facility] [address] [place] [address] INR in Platelet poor plasma by Coagulation assayOrdered By: Marii Christiansen on 12-10-2023 INR Coag (PPP) [Relative time] 1.0 {INR} Normal [facility] Comment on above: INR Therapeutic [...] with mechanical heart valves: 3 - 4.5 Result Comment: INR Therapeutic Range A) Pre- [...] valves: 3 - 4.5 Performed By: #### B DATABASE MANAGEMENT SPECIALIST, CK, HS TROP, PT, PTT, BMP, PHOS, MG, T4F, TSH3, HCGQUAL, CBC ####[facility] [id number] Leukocytes [#/volume] correc caitlin for nucleated erythrocytes in Blood by Automated counOrdered By: Marii Christiansen on 12-10-2023 WBC corrected for nucl RBC Auto (Bld) [#/Vol] 7.1 10*3/uL 3.8-11.6 [facility] Leukocytes [#/volume] in Blo od by Automated countOrdered By: Marii Christiansen on 12-10-2023 WBC (Bld) [#/Vol] 7.1 10*3/uL Normal 3.8-11.6 [facility] Comment on above: Performed By: #### B DATABASE MANAGEMENT SPECIALIST, CK, HS TROP, PT, PTT, BMP, PHOS, MG, T4F, TSH3, HCGQUAL, CBC #### [facility] [address] [place] [address] [place] Lymphocytes [#/volume] in Bl ood by Automated countOrdered By: Marii Christiansen on 12-10-2023 Lymphocytes (Bld) [#/Vol] 1.6 10*3/uL Normal 1.00-4.8 [facility] Comment on above: Performed By: #### B DATABASE MANAGEMENT SPECIALIST, CK, HS TROP, PT, PTT, BMP, PHOS, MG, T4F, TSH3, HCGQUAL, CBC #### [facility] [address] [place] [address] [place] Lymphocytes/100 leukocytes i n Blood by Automated countOrdered By: Marii Christiansen on 12-10-2023 Lymphocytes/100 WBC (Bld) 21.9 % Normal . [facility] Comment on above: Performed By: #### B DATABASE MANAGEMENT SPECIALIST, CK, HS TROP, PT, PTT, BMP, PHOS, MG, T4F, TSH3, HCGQUAL, CBC #### [facility] [address] MCH [Entitic mass] by Automa caitlin countOrdered By: Marii Christiansen on 12-10-2023 MCH (RBC) [Entitic mass] 28.8 pg Normal 24.7-34.3 [facility] Comment on above: Performed By: #### B DATABASE MANAGEMENT SPECIALIST, CK, HS TROP, PT, PTT, BMP, PHOS, MG, T4F, TSH3, HCGQUAL, CBC #### [facility] [address] [place] [address] MCHC Auto (RBC) [Mass/Vol]Or dered By: Marii Christiansen on 12-10-2023 MCHC (RBC) [Mass/Vol] 32.5 g/dL 32.0-35.0 [facility] MCV [Entitic volume] by Auto mated countOrdered By: Marii Christiansen on 12-10-2023 MCV (RBC) [Entitic vol] 88.7 fL Normal 80-100 [facility] Comment on above: Performed By: #### B DATABASE MANAGEMENT SPECIALIST, CK, HS TROP, PT, PTT, BMP, PHOS, MG, T4F, TSH3, HCGQUAL, CBC #### [facility] [address] [place] [address] Magnesium [Mass/volume] in S tushar or PlasmaOrdered By: Marii Christiansen on 12-10-2023 Magnesium [Mass/Vol] 1.9 mg/dL Normal 1.9-2.7 [facility] Comment on above: Performed By: #### B DATABASE MANAGEMENT SPECIALIST, CK, HS TROP, PT, PTT, BMP, PHOS, MG, T4F, TSH3, HCGQUAL, CBC ####[facility] [place] [address] Monocyte distribution width [Entitic volume] in Blood by AutomatedOrdered By: Marii Christiansen on 12-10-2023 Monocyte distribution width Auto (Bld) [Entitic vol] 16.94 % 0.00-20.00 [facility] Neutrophils [#/volume] in Bl ood by Automated countOrdered By: Marii Christiansen on 12-10-2023 Neutrophils (Bld) [#/Vol] 4.9 10*3/uL Normal 1.8-7.7 [facility] Comment on above: Performed By: #### B DATABASE MANAGEMENT SPECIALIST, CK, HS TROP, PT, PTT, BMP, PHOS, MG, T4F, TSH3, HCGQUAL, CBC #### [facility] [address] No Panel InformationOrdered By: Marii Christiansen on 12-10-2023 Estimated GFR (CKD-EPI) > 60.0 mL/Min [facility] Creatinine Clearance (Chem 144.76 [facility] Nucleated erythrocytes [Pres ence] in Blood by Automated countOrdered By: Marii Christiansen on 12-10-2023 Nucleated RBC Auto Ql (Bld) 0.1 /100{WBC} 0-0.5 [facility] Partial Thromboplastin Timeo n 12-10-2023 aPTT Coag (Bld) [Time] 28.8 s Normal 25.1-36.5 [facility] Comment on above: Result Comment: A he matocrit value greater than 55% may lead to inaccurate results in coagulation testing. Patients having hematocrit values >55% require a special collection tube for coagulation studies. Please contact the laboratory at [phone] for redraw instructions. PERFORMED BY: [facility] [address] [place] [address] PATHOLOGIST LAP MACHINE OPERATOR JOHNIE BOSS M.D. Performed By: #### B DATABASE MANAGEMENT SPECIALIST, CK, HS TROP, PT, PTT, BMP, PHOS, MG, T4F, TSH3, HCGQUAL, CBC ####[facility] [id number] [address] Phosphate [Mass/volume] in S tushar or PlasmaOrdered By: Marii Christiansen on 12-10-2023 Phosphate [Mass/Vol] 3.7 mg/dL Normal 2.5-4.5 [facility] Comment on above: Performed By: #### B DATABASE MANAGEMENT SPECIALIST, CK, HS TROP, PT, PTT, BMP, PHOS, MG, T4F, TSH3, HCGQUAL, CBC ####[facility] [id number] [address] Platelet mean volume [Entiti c volume] in Blood by Automated countOrdered By: Marii Christiansen on 12-10-2023 Platelet mean volume (Bld) [Entitic vol] 9.2 fL Normal 6.3-10.7 [facility] Comment on above: Performed By: #### B DATABASE MANAGEMENT SPECIALIST, CK, HS TROP, PT, PTT, BMP, PHOS, MG, T4F, TSH3, HCGQUAL, CBC #### [facility] [address] Platelets [#/volume] in Bloo d by Automated countOrdered By: Marii Christiansen on 12-10-2023 Platelets (Bld) [#/Vol] 331 10*3/uL Normal 150-450 [facility] Comment on above: Performed By: #### B DATABASE MANAGEMENT SPECIALIST, CK, HS TROP, PT, PTT, BMP, PHOS, MG, T4F, TSH3, HCGQUAL, CBC #### [facility] [address] Potassium [Moles/volume] in Serum or PlasmaOrdered By: Marii Christiansen on 12-10-2023 Potassium [Moles/Vol] 4.0 mmol/L Normal 3.5-5.1 [facility] Comment on above: Performed By: #### B DATABASE MANAGEMENT SPECIALIST, CK, HS TROP, PT, PTT, BMP, PHOS, MG, T4F, TSH3, HCGQUAL, CBC ####[facility] [id number] [address] Prothrombin time (PT)Ordered By: Marii Christiansen on 12-10-2023 PT Coag (PPP) [Time] 11.3 s Normal 9.0-12.9 [facility] Comment on above: A hematocrit value g reater than 55% may lead to inaccurate results in coagulation testing. Patients having hematocrit values >55% require a special collection tube for coagulation studies. Please contact the laboratory at [phone] for redraw instructions. Result Comment: A he matocrit value greater than 55% may lead to inaccurate results in coagulation testing. Patients having hematocrit values >55% require a special collection tube for coagulation studies. Please contact the laboratory at [phone] for redraw instructions. Performed By: #### B DATABASE MANAGEMENT SPECIALIST, CK, HS TROP, PT, PTT, BMP, PHOS, MG, T4F, TSH3, HCGQUAL, CBC ####[address] Serum or plasma anion gap de terminationOrdered By: Marii Christiansen on 12-10-2023 Anion gap [Moles/Vol] 9.8 mmol/L Normal 6.0-15.0 [facility] Comment on above: Performed By: #### B DATABASE MANAGEMENT SPECIALIST, CK, HS TROP, PT, PTT, BMP, PHOS, MG, T4F, TSH3, HCGQUAL, CBC ####[address] Sodium [Moles/volume] in Ser um or PlasmaOrdered By: Marii Christiansen on 12-10-2023 Sodium [Moles/Vol] 140 mmol/L Normal 136-145 [facility] Comment on above: Performed By: #### B DATABASE MANAGEMENT SPECIALIST, CK, HS TROP, PT, PTT, BMP, PHOS, MG, T4F, TSH3, HCGQUAL, CBC ####[address] Thyrotropin [Units/volume] i n Serum or PlasmaOrdered By: Marii Christiansen on 12-10-2023 TSH Qn 0.61 m[IU]/L Normal 0.45-5.33 [facility] Comment on above: Performed By: #### B DATABASE MANAGEMENT SPECIALIST, CK, HS TROP, PT, PTT, BMP, PHOS, MG, T4F, TSH3, HCGQUAL, CBC ####[address] Thyroxine (T4) free [Mass/vo lume] in Serum or PlasmaOrdered By: Marii Christiansen on 12-10-2023 Free T4 [Mass/Vol] 0.82 ng/dL Normal 0.61-1.12 [facility] Comment on above: Performed By: #### B DATABASE MANAGEMENT SPECIALIST, CK, HS TROP, PT, PTT, BMP, PHOS, MG, T4F, TSH3, HCGQUAL, CBC ####[place] [address] [place] [address] [facility] Troponin I High Sensitivityo n 12-10-2023 Troponin I High Sensitivity < 2.3 Normal 0.0-15.0 [facility] Comment on above: Result Comment: PERF ORMED BY: [place] [address] PATHOLOGIST LAP MACHINE OPERATOR JOHNIE BOSS M.D. Performed By: #### B DATABASE MANAGEMENT SPECIALIST, CK, HS TROP, PT, PTT, BMP, PHOS, MG, T4F, TSH3, HCGQUAL, CBC ####[place] [id number] [facility] Troponin I.cardiac [Mass/vol ume] in Serum or Plasma by Detection limit <= 0.01 ng/Ordered By: Marii Christiansen on 12-10-2023 Troponin I.cardiac DL <= 0.01 ng/mL [Mass/Vol] < 2.3 pg/mL 0.0-15.0 [facility] Urea nitrogen [Mass/volume] in Serum or PlasmaOrdered By: Marii Christiansen on 12-10-2023 Urea nitrogen [Mass/Vol] 14 mg/dL Normal 7-25 [facility] Comment on above: Performed By: #### B DATABASE MANAGEMENT SPECIALIST, CK, HS TROP, PT, PTT, BMP, PHOS, MG, T4F, TSH3, HCGQUAL, CBC ####[place] [address] [facility] XR chest 2V*on 12-10-2023 XR chest 2V* [facility] [address] [place] [address] [place] [address] XRay Report Signed Patient: Shazia Chou MR#: [id number] : 1990 Acct:[id number] Age/Sex: 32 / F ADM Date: 12/10/23 Loc: ER Room: Type: [facility] ER Attending Dr: Copies to: Marii [...] Gaye Peraza M.D.12/10/2023 2:29 PM Dictation Location: [place] [address] Transcribed By: [facility] 12/10/23 142 Dictated By: Gaye Peraza MD 12/10/231427 Signed By: 12/10/23 1429 Normal [facility] Consent for Treatmenton 11-13 Consent for Treatment [id number]#[id number] F Normal [facility] [place] Mamm Diag w/CAD if perf [...] very important to your health. The current [employer] and National Comprehensive Cancer [...] Category 1-Negative Recommendation: Normal interval follow-up Normal [facility] US Breast Unilateral Lt Comp leteon 12-09-2023 US Breast Unilateral Lt Complete Exam Date/Time: 12/09/2023 10:07 EDT Reason for Exam: N63.21 Report PLEASE REFER TO THE MAMMOGRAM REPORT. Ordering Provider: Jennie Ames FINAL REPORT Dictated: 12/09/2023 4:28 pm Mychal Cabezas M.D. Signed (Electronic Signature): 12/09/2023 4:28 pm Signed by: Mychal Cabezas M.D. Transcribed by: MARCO Technologist: KYLE Normal [facility] Physician Orderon 12-08-2023 Physician Order [id number] FF Normal [facility] CT ABDOMEN PELVIS W IV CONTR [...] Jacob Dillon DO 10/25/23 Final result Normal [facility] CBC panel Auto (Bld)on 08-31 Erythrocyte distribution width (RBC) [Ratio] 14.7 % Normal 11.5-15.0 [facility] Comment on above: Order Comment: Speci men Type: BLOOD SPECIMEN Ordering Facility: [facility] Address: [address] [place] [address] Performed By: #### 5 8410-2 #### [facility] CLIA [id number] [address] [place] [address] [place] Hematocrit (Bld) [Volume fraction] 36.9 % Normal 36.0-46.0 [facility] Comment on above: Order Comment: Speci men Type: BLOOD SPECIMEN Ordering Facility: [facility] Address: [address] [place] [address] Performed By: #### 5 8410-2 #### [facility] CLIA [id number] [address] [place] [address] [place] Hemoglobin (Bld) [Mass/Vol] 11.7 g/dL Normal 11.5-15.5 [facility] Comment on above: Order Comment: Speci men Type: BLOOD SPECIMEN Ordering Facility: [facility] Address: [address] [place] [address] Performed By: #### 5 8410-2 #### [facility] CLIA [id number] [address] [place] [address] [place] MCH (RBC) [Entitic mass] 29.8 pg Normal 26.0-34.0 [facility] Comment on above: Order Comment: Speci men Type: BLOOD SPECIMEN Ordering Facility: [facility] Address: [address] [place] [address] Performed By: #### 5 8410-2 #### [facility] CLIA [id number] [address] [place] [address] [place] MCHC (RBC) [Mass/Vol] 31.7 g/dL Normal 30.5-36.0 [facility] Comment on above: Order Comment: Speci men Type: BLOOD SPECIMEN Ordering Facility: [facility] Address: [address] [place] [address] Performed By: #### 5 8410-2 #### [facility] CLIA [id number] [address] [place] [address] [place] MCV (RBC) [Entitic vol] 93.9 fL Normal 80.0-100.0 [facility] Comment on above: Order Comment: Speci men Type: BLOOD SPECIMEN Ordering Facility: [facility] Address: [address] [place] [address] Performed By: #### 5 8410-2 #### [facility] CLIA [id number] [address] [place] [address] [place] Nucleated RBC (Bld) [#/Vol] 10*3/uL Normal <0.01 [facility] Comment on above: Order Comment: Speci men Type: BLOOD SPECIMEN Ordering Facility: [facility] Address: [address] [place] [address] Performed By: #### 5 8410-2 #### [facility] CLIA [id number] [address] [place] [address] [place] Platelet mean volume (Bld) [Entitic vol] 11.1 fL Normal 9.0-12.7 [facility] Comment on above: Order Comment: Speci men Type: BLOOD SPECIMEN Ordering Facility: [facility] Address: [address] [place] [address] Performed By: #### 5 8410-2 #### [facility] CLIA [id number] [address] [place] [address] [place] Platelets (Bld) [#/Vol] 297 10*3/uL Normal 150-400 [facility] Comment on above: Order Comment: Speci men Type: BLOOD SPECIMEN Ordering Facility: [facility] Address: [address] [place] [address] Performed By: #### 5 8410-2 #### [facility] CLIA [id number] [address] [place] [address] [place] RBC (Bld) [#/Vol] 3.93 10*6/uL Normal 3.90-5.20 [facility] Comment on above: Order Comment: Speci men Type: BLOOD SPECIMEN Ordering Facility: [facility] Address: [address] [place] [address] Performed By: #### 5 8410-2 #### [facility] CLIA [id number] [address] [place] [address] [place] WBC (Bld) [#/Vol] 6.82 10*3/uL Normal 3.70-11.00 [facility] Comment on above: Order Comment: Speci men Type: BLOOD SPECIMEN Ordering Facility: [facility] Address: [place] [id number] Performed By: #### 5 8410-2 #### [facility] CLIA [id number] [address] [place] CNOVon 08-31-2023 CNOV Office Visit ([id number] ) -------- SHAZIA CHOU ([id number]) 1990 F Date Time Provider Department 08/31/23 11:00 AM LEONELA GROSSMAN [id number] During your visit today, we recorded the following information about you: Temperature Pulse Blood pressure Weight 97.9 degrees 78/minute 123/88 89.4 kg Height 1.702 m [place], [place] 08/31/2023 11:14 AM Signed What is [...] Take 40 mg by mouth once daily. nxavrydngbok-jmf-cdmz-FA -vit K (BARIATRIC MULTIVITAMINS) 45 mg iron- [...] measure: Med (more content not included)... Normal [facility] Comprehensive metabolic 2000 panelon 08-31-2023 Albumin [Mass/Vol] 4.4 g/dL Normal 3.9-4.9 [facility] Comment on above: Order Comment: Philip birmingham Type: BLOOD SPECIMEN Ordering Facility: [facility] Address: [address] [place] [address] Performed By: #### L SONALI, 96828-2 #### [facility] CLIA [id number] [address] [place] [address] [place] ALP [Catalytic activity/Vol] 75 U/L Normal 34-123 [facility] Comment on above: Order Comment: Philip birmingham Type: BLOOD SPECIMEN Ordering Facility: [facility] Address: [address] [place] [address] Performed By: #### L SONALI, 45271-9 #### [facility] CLIA [id number] [address] [place] [address] [place] ALT [Catalytic activity/Vol] 16 U/L Normal 7-38 [facility] Comment on above: Order Comment: Speci men Type: BLOOD SPECIMEN Ordering Facility: [facility] Address: [address] [place] [address] Performed By: #### L IPNF, #### [facility] CLIA [id number] [place] [address] [place] Anion gap [Moles/Vol] 11 mmol/L Normal 9-18 [facility] Comment on above: Order Comment: Speci men Type: BLOOD SPECIMEN Ordering Facility: [facility] Address: [address] [place] [address] Performed By: #### L IPNF, #### [facility] CLIA [id number] [address] [place] [address] [place] AST [Catalytic activity/Vol] 21 U/L Normal 13-35 [facility] Comment on above: Order Comment: Speci men Type: BLOOD SPECIMEN Ordering Facility: [facility] Address: [address] [place] [address] Performed By: #### L IPNF, #### [facility] CLIA [id number] [address] [place] [address] [place] Bilirubin [Mass/Vol] 0.2 mg/dL Normal 0.2-1.3 [facility] Comment on above: Order Comment: Speci men Type: BLOOD SPECIMEN Ordering Facility: [facility] Address: [address] [place] [address] Performed By: #### L IPNF, #### [facility] CLIA [id number] [address] [place] [address] [place] Calcium [Mass/Vol] 9.7 mg/dL Normal 8.5-10.2 [facility] Comment on above: Order Comment: Speci men Type: BLOOD SPECIMEN Ordering Facility: [facility] Address: [address] [place] [address] Performed By: #### L IPNF, #### [facility] CLIA [id number] [address] [place] [address] [place] Chloride [Moles/Vol] 106 mmol/L High 97-105 [facility] Comment on above: Order Comment: Speci men Type: BLOOD SPECIMEN Ordering Facility: [facility] Address: [address] [place] [address] Performed By: #### L IPNF, 79827-9 #### [facility] CLIA [id number] [address] [place] [address] [place] CO2 [Moles/Vol] 25 mmol/L Normal 22-30 [facility] Comment on above: Order Comment: Speci men Type: BLOOD SPECIMEN Ordering Facility: [facility] Address: [address] [place] [address] Performed By: #### L IPNF, #### [facility] CLIA [id number] [address] [place] [address] Creatinine [Mass/Vol] 0.55 mg/dL Low 0.58-0.96 [facility] Comment on above: Order Comment: Speci men Type: BLOOD SPECIMEN Ordering Facility: [facility] Address: [address] [place] [address] Performed By: #### L IPNF, #### [facility] CLIA [id number] [address] [place] [address] Creatinine and Glomerular filtration rate.predicted panel (S/P/Bld) 124 mL/min/1.73m??? Normal >=60 [facility] Comment on above: Order Comment: Speci men Type: BLOOD SPECIMEN Ordering Facility: [facility] Address: [address] [place] [address] Result Comment: Brenda mated Glomerular Filtration Rate [...] actual GFR. Performed By: #### L IPNF, 67908-3 #### [facility] CLIA [id number] [address] [place] [address] [place] Glucose [Mass/Vol] 93 mg/dL Normal 74-99 [facility] Comment on above: Order Comment: Philip men Type: BLOOD SPECIMEN Ordering Facility: [facility] Address: [address] [place] [address] Result Comment: The [place] Diabetes Association (ADA) provides guidance for cutoff [...] Standards of Medical Care in Diabetes 2016, [place] [employer] Association. Diabetes Care. 2016.39(Suppl 1). Performed By: #### L IPMARTHA, 25411-8 #### [facility] CLIA [id number] [address] [place] [address] [place] Potassium [Moles/Vol] 4.7 mmol/L Normal 3.7-5.1 [facility] Comment on above: Order Comment: Philip birmingham Type: BLOOD SPECIMEN Ordering Facility: [facility] Address: [address] [place] [address] Performed By: #### L IPNF, 12862-1 #### [facility] CLIA [id number] [address] [place] [address] [place] Protein [Mass/Vol] 7.3 g/dL Normal 6.3-8.0 [facility] Comment on above: Order Comment: Cecili men Type: BLOOD SPECIMEN Ordering Facility: [facility] Address: [address] [place] [address] Performed By: #### L IPNF, 75153-2 #### [facility] CLIA [id number] [address] [place] [address] [place] Sodium [Moles/Vol] 142 mmol/L Normal 136-144 [facility] Comment on above: Order Comment: Speci men Type: BLOOD SPECIMEN Ordering Facility: [facility] Address: [address] [place] [address] Performed By: #### L IPNF, 47821-2 #### [facility] CLIA [id number] [address] [place] Urea nitrogen [Mass/Vol] 9 mg/dL Normal 7-21 [facility] Comment on above: Order Comment: Philip valencia Type: BLOOD SPECIMEN Ordering Facility: [facility] Address: [address] [place] [address] Performed By: #### L IPNF, 77595-9 #### [facility] CLIA [id number] [address] [place] HISTORY PHYSICALon HISTORY PHYSICAL HNO ID: [id number] Author: Leonela Grossman MD Service: ? Author [...] Take 40 mg by mouth once daily. wtkilluetbek-hjc-cabh-FA -vit K (BARIATRIC MULTIVITAMINS) 45 mg iron- [...] or problem (more content not included)... Normal [facility] LIPID PANEL, NONFASTINGon Cholesterol [Mass/Vol] 154 mg/dL Normal <200 [facility] Comment on above: Order Comment: Philip birmingham Type: BLOOD SPECIMEN Ordering Facility: [facility] Address: [address] [place] [address] Result Comment: <200 mg/dL, Desirable 200-239 mg/dL, Borderline high >239 mg/dL, High Performed By: #### L IPNF, 57828-7 #### [facility] CLIA [id number] [address] [place] [address] [place] [facility] HDL CHOLESTEROL, NF 69 mg/dL Normal >39 [facility] Comment on above: Order Comment: Philip birmingham Type: BLOOD SPECIMEN Ordering Facility: [facility] Address: [address] [place] [address] Result Comment: 40-5 9 mg/dL, Acceptable >59 mg/dL, High: Negative risk factor for coronary heart disease <40 mg/dL, Low: Positive risk factor for coronary heart disease Performed By: #### L IPNF, 47535-3 #### [facility] CLIA [id number] [address] [place] [address] [place] LDL CHOLESTEROL, NF 66 mg/dL Normal <100 [facility] Comment on above: Order Comment: Philip birmingham Type: BLOOD SPECIMEN Ordering Facility: [facility] Address: [address] [place] [address] Result Comment: <100 mg/dL, Optimal 100-129 mg/dL, Near optimal/above optimal 130-159 mg/dL, Borderline high 160-189 mg/dL, High >189 mg/dL, Very high Secondary prevention optimal LDL Cholesterol levels are recommended to be < 70 mg/dL Performed By: #### L IPNF, 70902-0 #### [facility] CLIA [id number] [address] [place] [address] LDL/HDL RATIO, NF 0.96 mg/dL Normal <2.54 [facility] Comment on above: Order Comment: Philip valencia Type: BLOOD SPECIMEN Ordering Facility: [facility] Address: [address] [place] [address] Result Comment: Refe rence: 1. National Cholesterol Education Program ATP III Guideline At-A-Glance Quick Desk Reference: National Heart, Lung, and Blood [place]. National Institutes of Health. 2001: NIH Publication No. 01-3305. 2. An International Atherosclerosis Society position paper: global recommendations for the management of dyslipidemia: executive summary, Atherosclerosis. 2014: 232(2):410-413. Performed By: #### L IPNF, 67729-5 #### [facility] CLIA [id number] [address] [place] [address] NON HDL CHOL, NF 85 mg/dL Normal <130 [facility] Comment on above: Order Comment: Cecilarielle birmingham Type: BLOOD SPECIMEN Ordering Facility: [facility] Address: [address] [place] [address] Result Comment: <130 mg/dL, Optimal 130-159 mg/dL, Near optimal/above optimal 160-189 mg/dL, Borderline high 190-219 mg/dL, High >219 mg/dL, Very high Secondary prevention optimal non HDL Cholesterol levels are recommended to be <100 mg/dL Performed By: #### L IPNF, 54891-1 #### [facility] CLIA [id number] [address] [place] [address] [place] T CHOL/HDL RATIO NF 2.23 mg/dL Normal <5.10 [facility] Comment on above: Order Comment: Speci men Type: BLOOD SPECIMEN Ordering Facility: [facility] Address: [address] [place] [address] Performed By: #### L IPNF, 18092-3 #### [facility] CLIA [id number] [address] [place] [address] [place] TRIGLYCERIDES, NF 96 mg/dL Normal <150 [facility] Comment on above: Order Comment: Speci men Type: BLOOD SPECIMEN Ordering Facility: [facility] Address: [address] [place] [address] Result Comment: <150 mg/dL, Normal 150-199 mg/dL, Borderline high 200-499 mg/dL, High >499 mg/dL, Very high Performed By: #### L IPNF, 97937-4 #### [facility] CLIA [id number] [address] [place] [address] [place] VLDL CHOLESTEROL, NF 19 mg/dL Normal <30 [facility] Comment on above: Order Comment: Speci men Type: BLOOD SPECIMEN Ordering Facility: [facility] Address: [address] [place] [address] Performed By: #### L IPNF, 99840-5 #### [facility] CLIA [id number] [address] [place] [address] [place] PHOSPHATIDYLETHANOL (PETH)on 08-31-2023 EER PETH See Note Normal [facility] Comment on above: Order Comment: Speci men Type: BLOOD SPECIMEN Ordering Facility: [facility] Address: [address] [place] [address] Result Comment: Auth orized individuals can access the [facility] Enhanced Report using the following link: [email or web address] Performed By: #### P ETH #### [facility] CLIA [id number] [address] [place] [address] PETH 16:0/18.2 (PLPETH) 244 ng/mL Normal [facility] Comment on above: Order Comment: Speci men Type: BLOOD SPECIMEN Ordering Facility: [facility] Address: [address] [place] [address] Result Comment: Refe rence ranges are not well established. Performed By: #### P ETH #### [facility] CLIA [id number] [address] [place] [address] PETH 16:0/18:1 (POPETH) 169 ng/mL Normal [facility] Comment on above: Order Comment: Speci men Type: BLOOD SPECIMEN Ordering Facility: [facility] Address: [address] [place] [address] Result Comment: PEth 16:0/18:1 (POPEth) Less than 10 ng/mL............Not detected Less than 20 ng/mL............Abstinence or light alcohol consumption 20 - 200 ng/mL................Moderate alcohol consumption Greater than 200 ng/mL........Heavy alcohol consumption or chronic alcohol use (Reference: Sophie Gonzalez and Crystal Zabala 2018 J. Forensic Sci) Performed By: #### P ETH #### [facility] CLIA [id number] [address] [place] [address] PETH INTERPRETATION See Note Normal [facility] Comment on above: Order Comment: Speci men Type: BLOOD SPECIMEN Ordering Facility: [facility] Address: [address] [place] [address] Result Comment: Phos phatidylethanol (PEth) is a [...] developed and its performance characteristics determined by [facility]. It has not been cleared or approved by the U.S. Food and Drug Administration. This test was performed in a CLIA-certified laboratory and is intended for clinical purposes. Performed By: [facility] [address] [place] [address] [employer]: Osmar Salcido MD, PhD CLIA Number: [id number] Performed By: #### P ETH #### [facility] CLIA [id number] [address] [place] [address] Ernesto 08-21-2023 CNPN Telephone ([id number]) -------- SHAZIA CHOU ([id number]) 1990 F Date Time Provider Department 08/21/23 LEONELA GROSSMAN [id number] During your visit today, we recorded the following information about you: Sindy Ruvalcaba RN 08/21/2023 10:19 AM Signed Called made to [facility] to push MRI from 08/20 through to [...] 40 mg by mouth once daily. - bbyrwjwwqrtq-rbc-cjbd-FA -vit K (BARIATRIC MULTIVITAMINS) 45 mg iron- [...] Status:Closed by SINDY RUVALCABA on 08/21/23 Normal [facility] MRI ABDOMEN W WO CONTRAST MR [...] Hospital Vitamin Aon 08-16-2023 Interpretation Normal Normal [facility] Comment on above: Result Comment: (NOT E) This test was developed and its performance characteristics determined by [facility]. It has not been cleared or approved by the US Food and Drug Administration. This test was performed in a CLIA certified laboratory and is intended for clinical purposes. Performed By: [facility] [address] [place] [address] [employer]: Osmar Salcido MD, PhD [place] Number: [id number] Performed By: #### P THNCA, FEBC, FERI, GLYHGB, VD25 #### [facility] [place] [place] [address] [employer]: Harpal Adair MD #### AGNES OLIVO, SENAN #### [facility] [address] [place] [address] [employer]: Patricio Zuñiga MD #### CP, MG, CDP #### [address] [place] [address] [employer]: Hilton Armenta MD Retinol (Vitamin A) 0.60 mg/L Normal 0.30-1.20 [facility] Comment on above: Performed By: #### P BAILEY, ALFONSO, FERI, GLYHGB, VD25 #### [facility] [address] [place] [address] [employer]: Harpal Adair MD #### AGNES OLIVO, AZN #### [facility] [address] [place], [place] [id number] [employer]: Patricio Zuñiga MD #### MG ANGEL, CDP #### [address] [place] [address] [employer]: Hilton Armenta MD Retinyl Palmitate <0.02 Normal 0.00-0.10 [facility] Comment on above: Performed By: #### ALFONSO COSTA, FERI, GLYHGB, VD25 #### [place] [address] [place] [address] [employer]: Harpal Adair MD #### AGNES OLIVO, AZN #### [facility] [address] [place], [place] [id number] [employer]: Patricio Zuñiga MD #### ANGEL MG, CDP #### [address] [place], [place] [id number] [employer]: Hilton Armenta MD Alanine aminotransferase [En zymatic activity/volume] in Serum or PlasmaOrdered By: Yoli Norris on 08-15-2023 ALT [Catalytic activity/Vol] 18 U/L Normal 7-52 [facility] Comment on above: Performed By: #### C BC, HEPATIC, BMP, LIPASE #### [facility] [address] [place] [address] [facility] Albumin [Mass/volume] in Ser um or Plasma by Bromocresol green (BCG) dye binding methoOrdered By: Yoli Norris on 08-15-2023 Albumin BCG dye [Mass/Vol] 4.6 g/dL 3.5-5.7 [facility] Alkaline phosphatase [Enzyma tic activity/volume] in Serum or PlasmaOrdered By: Yoli Norris on 08-15-2023 ALP [Catalytic activity/Vol] 77 U/L Normal 34-104 [facility] Comment on above: Performed By: #### C BC, HEPATIC, BMP, LIPASE #### [address] Aspartate aminotransferase [ Enzymatic activity/volume] in Serum or PlasmaOrdered By: Yoli Norris on 08-15-2023 AST [Catalytic activity/Vol] 18 U/L Normal 13-39 [facility] [facility] Comment on above: Performed By: #### C BC, HEPATIC, BMP, LIPASE #### [address] Automated basophil %Ordered By: Yoli Norris on 08-15-2023 Basophils/100 WBC (Bld) 0.5 % Normal . [facility] Comment on above: Performed By: #### C BC, HEPATIC, BMP, LIPASE #### [address] Automated basophil countOrde red By: Yoli Norris on 08-15-2023 Basophils (Bld) [#/Vol] 0.1 10*3/uL Normal 0.0-0.2 [facility] Comment on above: Result Comment: PERF ORMED BY: [place] [address] PATHOLOGIST LAP MACHINE OPERATOR JOHNIE BOSS M.D. Performed By: #### C BC, HEPATIC, BMP, LIPASE #### [address] Automated blood monocyte cou ntOrdered By: Yoli Norris on 08-15-2023 Monocytes (Bld) [#/Vol] 0.6 10*3/uL Normal 0.0-0.8 [facility] Comment on above: Performed By: #### C BC, HEPATIC, BMP, LIPASE #### [address] Automated eosinophil %Ordere d By: Yoli Norris on 08-15-2023 Eosinophils/100 WBC (Bld) 2.1 % Normal . [facility] Comment on above: Performed By: #### C BC, HEPATIC, BMP, LIPASE #### [address] Automated eosinophil countOr dered By: Yoli Norris on 08-15-2023 Eosinophils (Bld) [#/Vol] 0.2 10*3/uL Normal 0.0-0.45 [facility] Comment on above: Performed By: #### C BC, HEPATIC, BMP, LIPASE #### [address] Automated monocyte %Ordered By: Yoli Norris on 08-15-2023 Monocytes/100 WBC (Bld) 5.0 % Normal . [facility] Comment on above: Performed By: #### C BC, HEPATIC, BMP, LIPASE #### [address] Automated neutrophil %Ordere d By: Yoli Norris on 08-15-2023 Neutrophils/100 WBC (Bld) 74.6 % Normal . [facility] Comment on above: Performed By: #### C BC, HEPATIC, BMP, LIPASE #### [address] Automated urine color determ inationOrdered By: Yoli Norris on 08-15-2023 Color (U) Yellow Normal Yellow [facility] Comment on above: Order Comment: Name Collection Type:: Clean-Voided Midstream Performed By: #### U A, UHCG #### [address] Basic Metabolic Panelon Creatinine Clr Calc Pharmacy 117.62 Normal [facility] Comment on above: Performed By: #### C BC, HEPATIC, BMP, LIPASE #### [address] GFR/1.73 sq M.predicted MDRD (S/P/Bld) [Vol rate/Area] mL/min/{1.73_m2} Normal [facility] Comment on above: Performed By: #### C BC, HEPATIC, BMP, LIPASE #### [facility] [address] [place] [address] Bilirubin Test strip Ql (U)O rdered By: Yoli Norris on 08-15-2023 Bilirubin Ql (U) Negative Negative [facility] Bilirubin.direct [Mass/volum e] in Serum or PlasmaOrdered By: Yoli Norris on 08-15-2023 Bilirubin.direct [Mass/Vol] 0.00 mg/dL 0.03-0.18 [facility] Comment on above: If the DBIL is less than 0.1, IBIL is not able to becalculated. Bilirubin.total [Mass/volume ] in Serum or PlasmaOrdered By: Yoli Norris on 08-15-2023 Bilirubin [Mass/Vol] 0.3 mg/dL Normal 0.3-1.0 [facility] Comment on above: Performed By: #### C BC, HEPATIC, BMP, LIPASE #### [facility] [address] [place] [address] CT abdomen pelvis w conon CT abdomen pelvis w con [facility] Main [place] [address] [place] [address] CT Scan Report Signed Patient: Shazia Chou MR#: [id number] : 1990 Acct:[id number] Age/Sex: 32 / F ADM Date: 08/15/23 Loc: ER Room: Type: [facility] ER Attending Dr: Copies to: Yoli [...] Gaye Peraza M.D.08/15/2023 1:03 PM Dictation Location: [place] [address] Transcribed By: MARKY 08/15/23 1303 Dictated By: Gaye Peraza MD 08/15/23 1256 Signed By: 08/15/23 1303 Normal [facility] Calcium [Mass/volume] in Ser um or PlasmaOrdered By: Yoli Norris on 08-15-2023 Calcium [Mass/Vol] 9.8 mg/dL Normal 8.6-10.3 [facility] Comment on above: Performed By: #### C BC, HEPATIC, BMP, LIPASE #### [facility] [address] [place] [address] Carbon dioxide, total [Moles /volume] in Serum or PlasmaOrdered By: Yoli Norris on 08-15-2023 CO2 [Moles/Vol] 21.8 mmol/L Normal 21.0-31.0 [facility] Comment on above: Performed By: #### C BC, HEPATIC, BMP, LIPASE #### [address] Chloride [Moles/volume] in S tushar or PlasmaOrdered By: Yoli Norris on 08-15-2023 Chloride [Moles/Vol] 109 mmol/L High 98-107 [facility] Comment on above: Performed By: #### C BC, HEPATIC, BMP, LIPASE #### [address] Complete Blood Count Auto Di ffon 08-15-2023 Mean Corpuscular HGB Conc 32.7 g/dL Normal 32.0-35.0 [facility] Comment on above: Performed By: #### C BC, HEPATIC, BMP, LIPASE #### [address] Monocytes/100 WBC (Bld) 15.46 % Normal 0.00-20.00 [facility] Comment on above: Performed By: #### C BC, HEPATIC, BMP, LIPASE #### [address] NRBC% 0.0 /100{WBC} Normal 0-0.5 [facility] Comment on above: Performed By: #### C BC, HEPATIC, BMP, LIPASE #### [address] Creatinine [Mass/volume] in Serum or PlasmaOrdered By: Yoli Norris on 08-15-2023 Creatinine [Mass/Vol] 0.76 mg/dL Normal 0.60-1.20 [facility] Comment on above: Performed By: #### C BC, HEPATIC, BMP, LIPASE #### [address] Erythrocyte distribution wid th [Ratio] by Automated countOrdered By: Yoli Norris on 08-15-2023 Erythrocyte distribution width (RBC) [Ratio] 15.1 % Normal 11.9-15.3 [facility] Comment on above: Performed By: #### C BC, HEPATIC, BMP, LIPASE #### [address] [address] [place] Erythrocytes [#/volume] in B lood by Automated countOrdered By: Yoli Norris on 08-15-2023 RBC (Bld) [#/Vol] 4.03 10*6/uL Normal 3.60-5.00 [facility] Comment on above: Performed By: #### C BC, HEPATIC, BMP, LIPASE #### [facility] [address] [place] [address] Glucose [Mass/volume] in Ser um or PlasmaOrdered By: Yoli Norris on 08-15-2023 Glucose [Mass/Vol] 85 mg/dL Normal 70-100 [facility] Comment on above: ADA recommended refe rence rangeRandom Glucose Reference Range is dependent on time and content of last meal. Glucose of more than 200 mg/dL in a nonstressed, ambulatory subject supports the diagnosis of Diabetes Mellitus. Result Comment: [place] om Glucose Reference Range is dependent on time and content of last meal. Glucose of more than 200 mg/dL in a nonstressed, ambulatory subject supports the diagnosis of Diabetes Mellitus. ADA recommended reference range Performed By: #### C BC, HEPATIC, BMP, LIPASE #### [facility] [address] [place] [address] HCG ( test) IA.rapi d Ql (U)Ordered By: Yoli Norris on 08-15-2023 HCG ( test) Ql (U) Negative [facility] HCG,Urineon 08-15-2023 Beta HCG ( test) Ql (U) Negative Normal [facility] Comment on above: Order Comment: Name Collection Type:: Clean-Voided Midstream Result Comment: PERF ORMED BY: [place] [address] PATHOLOGIST LAP MACHINE OPERATOR JOHNIE BOSS M.D. Performed By: #### U A, [facility] #### [facility] [address] [place] [address] Hematocrit [Volume Fraction] of Blood by Automated countOrdered By: Yoli Norris on 08-15-2023 Hematocrit (Bld) [Volume fraction] 37.2 % Normal 34.0-46.4 [facility] Comment on above: Performed By: #### C BC, HEPATIC, BMP, LIPASE #### [address] Hemoglobin [Mass/volume] in BloodOrdered By: Yoli Norris on 08-15-2023 Hemoglobin (Bld) [Mass/Vol] 12.2 g/dL Normal 11.8-15.4 [facility] Comment on above: Performed By: #### C BC, HEPATIC, BMP, LIPASE #### [address] Hepatic Panelon 08-15-2023 Albumin [Mass/Vol] 4.6 g/dL Normal 3.5-5.7 [facility] Comment on above: Performed By: #### C BC, HEPATIC, BMP, LIPASE #### [address] Bilirubin,Indirect 0.3 mg/dL Normal [facility] Comment on above: Performed By: #### C BC, HEPATIC, BMP, LIPASE #### [address] Bilirubin.indirect [Mass/Vol] 0.00 mg/dL Low 0.03-0.18 [facility] Comment on above: Result Comment: If t he DBIL is less than 0.1, IBIL is not able to be calculated. Performed By: #### C BC, HEPATIC, BMP, LIPASE #### [address] Ketones Auto test strip (U) [Mass/Vol]Ordered By: Yoli Norris on 08-15-2023 Ketones (U) [Mass/Vol] Negative Negative [facility] Leukocytes [#/volume] correc caitlin for nucleated erythrocytes in Blood by Automated counOrdered By: Yoli Norris on 08-15-2023 WBC corrected for nucl RBC Auto (Bld) [#/Vol] 11.3 10*3/uL 3.8-11.6 [facility] Leukocytes [#/volume] in Blo od by Automated countOrdered By: Yoli Norris on 08-15-2023 WBC (Bld) [#/Vol] 11.3 10*3/uL Normal 3.8-11.6 [facility] Comment on above: Performed By: #### C BC, HEPATIC, BMP, LIPASE #### [address] Lipase [Enzymatic activity/v olume] in Serum or PlasmaOrdered By: Yoli Norris on 08-15-2023 Lipase [Catalytic activity/Vol] 32.0 U/L Normal 11.0-82.0 [facility] Comment on above: Result Comment: PERF ORMED BY: [place] [address] PATHOLOGIST LAP MACHINE OPERATOR JOHNIE BOSS M.D. Performed By: #### C BC, HEPATIC, BMP, LIPASE #### [address] Lymphocytes [#/volume] in Bl ood by Automated countOrdered By: Yoli Norris on 08-15-2023 Lymphocytes (Bld) [#/Vol] 2.0 10*3/uL Normal 1.00-4.8 [facility] Comment on above: Performed By: #### C BC, HEPATIC, BMP, LIPASE #### [address] Lymphocytes/100 leukocytes i n Blood by Automated countOrdered By: Yoli Norris on 08-15-2023 Lymphocytes/100 WBC (Bld) 17.8 % Normal . [facility] Comment on above: Performed By: #### C BC, HEPATIC, BMP, LIPASE #### [address] MCH [Entitic mass] by Automa caitlin countOrdered By: Yoli Norris on 08-15-2023 MCH (RBC) [Entitic mass] 30.2 pg Normal 24.7-34.3 [facility] Comment on above: Performed By: #### C BC, HEPATIC, BMP, LIPASE #### [address] MCHC Auto (RBC) [Mass/Vol]Or dered By: Yoli Norris on 08-15-2023 MCHC (RBC) [Mass/Vol] 32.7 g/dL 32.0-35.0 [facility] MCV [Entitic volume] by Auto mated countOrdered By: Yoli Norris on 08-15-2023 MCV (RBC) [Entitic vol] 92.4 fL Normal 80-100 [facility] Comment on above: Performed By: #### C BC, HEPATIC, BMP, LIPASE #### [facility] [address] Monocyte distribution width [Entitic volume] in Blood by AutomatedOrdered By: Yoli Norris on 08-15-2023 Monocyte distribution width Auto (Bld) [Entitic vol] 15.46 % 0.00-20.00 [facility] Neutrophils [#/volume] in Bl ood by Automated countOrdered By: Yloi Norris on 08-15-2023 Neutrophils (Bld) [#/Vol] 8.4 10*3/uL High 1.8-7.7 [facility] Comment on above: Performed By: #### C BC, HEPATIC, BMP, LIPASE #### [facility] [address] [place] [address] Nitrite Test strip Ql (U)Ord ered By: Yoli Norris on 08-15-2023 Nitrite Ql (U) Negative Negative [facility] No Panel InformationOrdered By: Yoli Norris on 08-15-2023 Estimated GFR (CKD-EPI) > 60.0 mL/Min [facility] Pharmacy Creatinine Clearance (Chem 117.62 [facility] Nucleated erythrocytes [Pres ence] in Blood by Automated countOrdered By: Yoli Norris on 08-15-2023 Nucleated RBC Auto Ql (Bld) 0.0 /100{WBC} 0-0.5 [facility] Platelet mean volume [Entiti c volume] in Blood by Automated countOrdered By: Yoli Norris on 08-15-2023 Platelet mean volume (Bld) [Entitic vol] 9.2 fL Normal 6.3-10.7 [facility] Comment on above: Performed By: #### C BC, HEPATIC, BMP, LIPASE #### [facility] [address] [place] [address] [place] Platelets [#/volume] in Bloo d by Automated countOrdered By: Yoli Norris on 08-15-2023 Platelets (Bld) [#/Vol] 321 10*3/uL Normal 150-450 [facility] Comment on above: Performed By: #### C BC, HEPATIC, BMP, LIPASE #### [facility] [address] [place] [address] Potassium [Moles/volume] in Serum or PlasmaOrdered By: Yoli Norris on 08-15-2023 Potassium [Moles/Vol] 3.5 mmol/L Normal 3.5-5.1 [facility] Comment on above: Performed By: #### C BC, HEPATIC, BMP, LIPASE #### [facility] [address] [place] [address] Protein Auto test strip (U) [Mass/Vol]Ordered By: Yoli Norris on 08-15-2023 Protein (U) [Mass/Vol] Negative Negative [facility] Protein [Mass/volume] in Ser um or PlasmaOrdered By: Yoli Norris on 08-15-2023 Protein [Mass/Vol] 7.8 g/dL Normal 6.4-8.9 [facility] Comment on above: Performed By: #### C BC, HEPATIC, BMP, LIPASE #### [facility] [address] [place] [address] Serum globulin measurement b y calculation (mass/volume)Ordered By: Yoli Norris on 08-15-2023 Globulin (S) [Mass/Vol] 3.2 g/dL [facility] Comment on above: Performed By: #### C BC, HEPATIC, BMP, LIPASE #### [facility] [address] [place] [address] Serum or plasma albumin/glob ulin mass ratioOrdered By: Yoli Norris on 08-15-2023 Albumin/Globulin [Mass ratio] 1.4 {ratio} [facility] Comment on above: Performed By: #### C BC, HEPATIC, BMP, LIPASE #### [address] Serum or plasma anion gap de terminationOrdered By: Yoli Norris on 08-15-2023 Anion gap [Moles/Vol] 12.7 mmol/L Normal 6.0-15.0 [facility] Comment on above: Performed By: #### C BC, HEPATIC, BMP, LIPASE #### [address] Serum or plasma non-glucuron idated bilirubin measurement (mass/volume)Ordered By: Yoli Norris on 08-15-2023 Bilirubin.indirect [Mass/Vol] 0.3 mg/dL [facility] Sodium [Moles/volume] in Ser um or PlasmaOrdered By: Yoli Norris on 08-15-2023 Sodium [Moles/Vol] 140 mmol/L Normal 136-145 [facility] Comment on above: Performed By: #### C BC, HEPATIC, BMP, LIPASE #### [address] Specific gravity Auto test s trip (U) [Rel density]Ordered By: Yoli Norris on 08-15-2023 Specific gravity (U) [Rel density] 1.007 1.001-1.030 [facility] Urea nitrogen [Mass/volume] in Serum or PlasmaOrdered By: Yoli Norris on 08-15-2023 Urea nitrogen [Mass/Vol] 11 mg/dL Normal 7-25 [facility] Comment on above: Performed By: #### C BC, HEPATIC, BMP, LIPASE #### [address] Urinalysison 08-15-2023 Appearance (U) Clear Normal Clear [facility] Comment on above: Order Comment: Name Collection Type:: Clean-Voided Midstream Performed By: #### U A UHCG #### [address] Bilirubin,Urine Negative Normal Negative [facility] Comment on above: Order Comment: Name Collection Type:: Clean-Voided Midstream Performed By: #### U A UHCG #### [address] Glucose Ql (U) Normal Normal Normal [facility] Comment on above: Order Comment: Name Collection Type:: Clean-Voided Midstream Performed By: #### U A UHCG #### [facility] [address] [place] [address] [place] Ketones Ql (U) Negative Normal Negative [facility] Comment on above: Order Comment: Name Collection Type:: Clean-Voided Midstream Performed By: #### U A, UHCG #### [address] Leukocyte esterase Test strip Ql (U) Negative Normal Negative [facility] Comment on above: Order Comment: Name Collection Type:: Clean-Voided Midstream Performed By: #### U A, UHCG #### [place] [address] [place] Nitrite,Urine Negative Normal Negative [facility] Comment on above: Order Comment: Name Collection Type:: Clean-Voided Midstream Performed By: #### U A, UHCG #### [place] [address] [place] Occult Blood,Urine Negative Normal Negative [facility] Comment on above: Order Comment: Name Collection Type:: Clean-Voided Midstream Performed By: #### U A, UHCG #### [place] [address] [place] Protein,Urine Negative Normal Negative [facility] Comment on above: Order Comment: Name Collection Type:: Clean-Voided Midstream Performed By: #### U A, UHCG #### [place] [address] [place] Specificy [place],Urine 1.007 Normal 1.001-1.030 [facility] Comment on above: Order Comment: Name Collection Type:: Clean-Voided Midstream Performed By: #### U A, UHCG #### [place] [address] [place] Urobilinogen,Urine Normal Normal Normal [facility] Comment on above: Order Comment: Name Collection Type:: Clean-Voided Midstream Performed By: #### U A, UHCG #### [place] [address] [place] Urine clarity by refractomet ry automatedOrdered By: Yoli Norris on 08-15-2023 Clarity Refractometry automated (U) Clear Clear [facility] Urine glucose measurement by automated test strip (mass/volume)Ordered By: Yoli Norris on 08-15-2023 Glucose Auto test strip (U) [Mass/Vol] Normal mg/dL Normal [facility] Urine hemoglobin detection b y automated test stripOrdered By: Yoli Norris on 08-15-2023 Hemoglobin Auto test strip Ql (U) Negative Negative [facility] Urine leukocyte esterase det ection by automated test stripOrdered By: Yoli Norris on 08-15-2023 Leukocyte esterase Auto test strip Ql (U) Negative Negative [facility] Urine pH measurement by auto mated test stripOrdered By: Yoli Norris on 08-15-2023 pH (U) 8.0 [pH] Normal 5.0-9.0 [facility] Comment on above: Order Comment: Name Collection Type:: Clean-Voided Midstream Performed By: #### U A, CG #### [address] Urobilinogen Auto test strip (U) [Mass/Vol]Ordered By: Yoli Norris on 08-15-2023 Urobilinogen (U) [Mass/Vol] Normal mg/dL Normal [facility] Vitamin B1on 08-15-2023 Vitamin B1 145 nmol/L Normal 70-180 [facility] Comment on above: Result Comment: (NOT E) [...] developed and its performance characteristics determined by [facility]. It has not been cleared or approved by the [place] Food and Drug Administration. This test was performed in a CLIA certified laboratory and is intended for clinical purposes. Performed By: [facility] [address] [place] [id number] [employer]: Osmar Salcido MD, PhD CLIA Number: [id number] Performed By: #### P THNCA, FEBC, FERI, GLYHGB, VD25 #### [facility] [address] [place] [address] [employer]: Harpal Adair MD #### AGNES OLIVO, AZN #### [facility] [address] [place] [address] [employer]: Patricio Zuñiga MD #### ANGEL, MG, CDP #### [facility] [address] [place] [address] [employer]: Hliton Armenta MD Zinc, Serumon 08-14-2023 Zinc, Serum 95.3 ug/dL Normal 60.0-120.0 [facility] Comment on above: Result Comment: (NOT E) [...] developed and its performance characteristics determined by [facility]. It has not been cleared or approved by the [place] Food and Drug Administration. This test was performed in a CLIA certified laboratory and is intended for clinical purposes. Performed By: [facility] [address] [place] [address] [employer]: Osmar Salcido MD, PhD CLIA Number: [id number] Performed By: #### P THNCA, FEBC, FERI, GLYHGB, VD25 #### [facility] [address] [place] [address] [employer]: Harpal Adair MD #### AGNES OLIVO, AZN #### [facility] [email or web address] [address] [place], [place] [id number] [employer]: Patricio Zuñiga MD #### ANGEL MG, CDP #### [address] [place], [place] [id number] [employer]: Hilton Armenta MD B12/Folate Panelon 3 Folic Acid >20.0 Normal >4.8 [facility] Comment on above: Performed By: #### P THNCA, FEBC, FERI, GLYHGB, VD25 #### [place] [id number] [place] [address] [employer]: Harpal Adair MD #### AGNES OLIVO, AZN #### [facility] [address] [place], [place] [id number] [employer]: Patricio Zuñiga MD #### ANGEL, MG, CDP #### [address] [place], [place] [id number] [employer]: Hilton Armenta MD Cobalamin (Vitamin B12) [Mass/Vol] 632 pg/mL Normal 232-1245 [facility] Comment on above: Performed By: #### P DENNISA, FEBC, FERI, GLYHGB, VD25 #### [address] [address] [employer]: Harpal Adair MD #### AGNES OLIVO, AZN #### [facility] [address] [place] [address] [employer]: Patricio Zuñiga MD #### CP, MG, CDP #### [address] [place], [place] [id number] [employer]: Hilton Armenta MD CBC with Diffon 08-12-2023 Abs. Basophil 0.06 k/uL Normal 0.00-0.20 [facility] Comment on above: Performed By: #### P THNCA, FEBC, FERI, GLYHGB, VD25 #### [address] [address] [employer]: Harpal Adair MD #### ARIAN OLIVOTB1, AZN #### [facility] [address] [place], [place] [id number] [employer]: Patricio Zuñiga MD #### CP, MG, CDP #### [facility] [address] [place] [address] [place] [address] [employer]: iHlton Armenta MD Abs.Imm.Granulocyte 0.03 k/uL Normal 0.00-0.30 [facility] Comment on above: Performed By: #### P DENNISA, FEBC, FERI, GLYHGB, VD25 #### [address] [id number] [employer]: Harpal Adair MD #### ARIAN OLIVOTB1, AZN #### [facility] [address] [place], [place] [id number] [employer]: Patricio Zuñiga MD #### ANGEL, MG, CDP #### [address] [place] [address] [employer]: Hilton Armenta MD Abs.Neutrophil (Seg) 6.33 k/uL Normal 1.50-8.10 [facility] Comment on above: Performed By: #### P THNCA, FEBC, FERI, GLYHGB, VD25 #### [address] [id number] [employer]: Harpal Adair MD #### ARIAN OLIVOTB1, AZN #### [facility] [address] [place], [place] [id number] [employer]: Patricio Zuñiga MD #### CP, MG, CDP #### [address] [place] [address] [employer]: Hilton Armenta MD Basophils/100 WBC (Bld) 1 % Normal 0-2 [facility] Comment on above: Performed By: #### P THNCA, FEBC, FERI, GLYHGB, VD25 #### [facility] [address] [place] [address] [employer]: Harpal Adair MD #### FARHADSARIANTB1, AZN #### [facility] [address] [place] [address] [employer]: Patricio Zuñiga MD #### CP, MG, CDP #### [address] [place], [place] [id number] [employer]: Hilton Armenta MD Eosinophils (Bld) [#/Vol] 0.43 10*3/uL Normal 0.00-0.44 [facility] Comment on above: Performed By: #### P THNCA, FEBC, FERI, GLYHGB, VD25 #### [address] [address] [employer]: Harpal Adair MD #### ARIAN OLIVOTB1, AZN #### [facility] [address] [place], [place] [id number] [employer]: Patricio Zuñiga MD #### ANGEL, MG, CDP #### [address] [place], [place] [id number] [employer]: Hilton Armenta MD Eosinophils/100 WBC (Bld) 5 % High 1-4 [facility] Comment on above: Performed By: #### P THNCA, FEBC, FERI, GLYHGB, VD25 #### [address] [address] [employer] [facility]: Harpal Adair MD #### AVIARIAN MAHMOODTB1, AZN #### [facility] [address] [place] [address] [facility] [employer] [facility]: Patricio Zuñiga MD #### CP, MG, CDP #### [address] [place], [place] [id number] [facility]: Hilton Armenta MD Erythrocyte distribution width (RBC) [Ratio] 14.9 % High 11.8-14.4 [facility] Comment on above: Performed By: #### P THNCA, FEBC, FERI, GLYHGB, VD25 #### [address] [id number] [facility] [employer]: Harpal Adair MD #### AGNES OLIVO, AZN #### [facility] [address] [place] [address] [facility]: Patricio Zuñiga MD #### MG ANGEL, CDP #### [address] [place] [address] [facility]: Hilton Armenta MD Hematocrit (Bld) [Volume fraction] 38.0 % Normal 36.3-47.1 [facility] Comment on above: Performed By: #### P THNCA, FEBC, FERI, GLYHGB, VD25 #### [address] [id number] [facility] [employer]: Harpal Adair MD #### AGNES OLIVO, AZN #### [facility] [address] [place] [address] [facility]: Patricio Zuñiga MD #### ANGEL, MG, CDP #### [address] [place] [address] [facility] [employer]: Hliton Armenta MD Hemoglobin (Bld) [Mass/Vol] 12.2 g/dL Normal 11.9-15.1 [facility] Comment on above: Performed By: #### P THNCA, FEBC, FERI, GLYHGB, VD25 #### [address] [address] [facility] [employer] [facility]: Harpal Adair MD #### ARIAN OLIVOTB1, AZN #### [facility] [address], [place] [id number] [facility] [employer] [facility]: Patricio Zuñiga MD #### ANGEL, MG, CDP #### [facility] [address] [place], [place] [id number] [facility] [employer]: Hilton Armenta MD Immature granulocytes/100 WBC (Bld) 0 % Normal 0 [facility] Comment on above: Performed By: #### P THNCA, FEBC, FERI, GLYHGB, VD25 #### [address] [address] [facility] [employer] [facility]: Harpal Adair MD #### TYREE OLIVO1, AZN #### [facility] [address] [place] [address] [facility] [employer] [facility]: Patricio Zuñiga MD #### ANGEL, , CDP #### [facility] [address] [place] [address] [facility] [employer] [facility]: Hilton Armenta MD Lymphocytes (Bld) [#/Vol] 1.90 10*3/uL Normal 1.10-3.70 [facility] Comment on above: Performed By: #### P THNCA, FEBC, FERI, GLYHGB, VD25 #### [address] [address] [facility] [employer] [facility]: Harpal Adair MD #### ARIAN OLIVOTB1, AZN #### [facility] [address] [place] [address] [facility] [employer] [facility]: Patricio Zuñiga MD #### ANGEL, MG, CDP #### [facility] [address] [place], [place] [id number] [facility] [employer] [facility]: Hilton Armenta MD Lymphocytes/100 WBC (Bld) 20 % Low 24-43 [facility] Comment on above: Performed By: #### P THNCA, FEBC, FERI, GLYHGB, VD25 #### [address] [place] [address] [facility] [facility]: Harpal Adair MD #### ARIAN OLIVOTB1, AZN #### [facility] [address], [place] [id number] [facility] [facility]: Patricio Zuñiga MD #### ANGEL, MG, CDP #### [address] [place], [place] [id number] [facility] [employer] [facility]: Hilton Armenta MD MCH (RBC) [Entitic mass] 29.9 pg Normal 25.2-33.5 [facility] Comment on above: Performed By: #### P THNCA, FEBC, FERI, GLYHGB, VD25 #### [address] [id number] [facility]: Harpal Adair MD #### AGNES OLIVO, AZN #### [facility] [address] [place] [address] [facility] [employer] [facility]: Patricio Zuñiga MD #### MG ANGEL, CDP #### [address] [place] [address] [facility] [facility]: Hilton Armenta MD MCHC (RBC) [Mass/Vol] 32.1 g/dL Normal 28.4-34.8 [facility] Comment on above: Performed By: #### P THNCA, FEBC, FERI, GLYHGB, VD25 #### [address] [address] [facility]: Harpal Adair MD #### ARIAN OLIVOTB1, AZN #### [facility] [address], [place] [id number] [facility] [employer] [facility]: Patricio Zuñiga MD #### ANGEL, MG, CDP #### [facility] [address] [place], [place] 8[address]1683 [facility] [facility]: Hilton Armenta MD MCV (RBC) [Entitic vol] 93.1 fL Normal 82.6-102.9 [facility] Comment on above: Performed By: #### P THNCA, FEBC, FERI, GLYHGB, VD25 #### [address] [id number] [facility]: Harpal Adair MD #### AGNES OLIVO, AZN #### [facility] [address], [place] [id number] [facility] [employer] [facility]: Patricio Zuñiga MD #### ANGEL, MG, CDP #### [address] [place], [place] [id number] [facility] [facility]: Hilton Armenta MD Monocytes (Bld) [#/Vol] 0.70 10*3/uL Normal 0.10-1.20 [facility] Comment on above: Performed By: #### P THNCA, FEBC, FERI, GLYHGB, VD25 #### [address] [address] [facility]: Harpal Adair MD #### AGNES OLIVO, AZN #### [facility] [address] [place] [address] [facility] [facility]: Patricio Zuñiga MD #### ANGEL, MG, CDP #### [address] [place], [place] [id number] [facility] [facility]: Hilton Armenta MD Monocytes/100 WBC (Bld) 7 % Normal 3-12 [facility] Comment on above: Performed By: #### P THNCA, FEBC, FERI, GLYHGB, VD25 #### [address] [id number] [facility] [facility]: Harpal Adair MD #### AGNES OLIVO, AZN #### [facility] [address] [place] [address] [facility] [facility]: Patricio Zuñiga MD #### MG ANGEL, CDP #### [address] [place], [place] [id number] [facility] [facility]: Hilton Armenta MD Neutrophil (Seg) 67 % High 36-[address] [facility] Comment on above: Performed By: #### P THNCA, FEBC, FERI, GLYHGB, VD25 #### [address] [place], [place] 8101708 [facility] [facility]: Harpal Adair MD #### AGNES OLIVO, AZN #### [facility] [address], [place] [id number] [facility] [facility]: Patricio Zuñiga MD #### MG ANGEL, CDP #### [address] [place] [address] [facility] [facility]: Hilton Armenta MD NRBC Automated 0.0 per 100 WBC Normal 0.0 [facility] Comment on above: Performed By: #### P THNCA, FEBC, FERI, GLYHGB, VD25 #### [address] [id number] [facility] [facility] [employer]: Harpal Adair MD #### AGNES OLIVO, AZN #### [facility] [address] [place] [address] [facility] [facility]: Patricio Zuñiga MD #### ANGEL MG, CDP #### [address] [place] [address] [facility] [facility]: Hilton Armenta MD Platelet mean volume (Bld) [Entitic vol] 10.6 fL Normal 8.1-13.5 [facility] Comment on above: Performed By: #### P THNCA, FEBC, FERI, GLYHGB, VD25 #### [facility] [place] [address] [facility]: Harpal Aadir MD #### AGNES OLIVO, AZN #### [facility] [address] [place] [address] [facility] [facility]: Patricio Zuñiga MD #### ANGEL MG, CDP #### [address] [place], [place] [id number] [facility] [facility]: Hilton Armenta MD Platelets (Bld) [#/Vol] 355 10*3/uL Normal 138-453 [facility] Comment on above: Performed By: #### P THNCA, FEBC, FERI, GLYHGB, VD25 #### [address] [address] [facility]: Harpal Adair MD #### AGNES OLIVO, AZN #### [facility] [address] [place] [address] [facility] [facility]: Patricio Zuñiga MD #### MG ANEGL, CDP #### [address] [place], [place] [phone] [facility] [facility]: Hilton Armenta MD RBC (Bld) [#/Vol] 4.08 10*6/uL Normal 3.95-5.11 [facility] Comment on above: Performed By: #### P THNCA, FEBC, FERI, GLYHGB, VD25 #### [address] [place] [address] [facility] [facility]: Harpal Adair MD #### AGNES OLIVO, AZN #### [facility] [address] [place] [address] [facility] [employer] [facility]: Patricio Zuñiga MD #### ANGEL MG, CDP #### [address] [place], [place] [id number] [facility] [facility]: Hilton Armenta MD WBC (Bld) [#/Vol] 9.5 10*3/uL Normal 3.5-11.3 [facility] Comment on above: Performed By: #### P THNCA, FEBC, FERI, GLYHGB, VD25 #### [address] [id number] [facility] [facility]: Harpal Adair MD #### ARIAN OLIVOTB1, AZN #### [facility] [address], [place] [id number] [facility] [employer] [facility]: Patricio Zuñiga MD #### ANGEL, MG, CDP #### [address] [place] [address] [facility] [facility]: Hilton Armenta MD Comp Metabolic Profon 2022 Albumin [Mass/Vol] 4.5 g/dL Normal 3.5-5.2 [facility] Comment on above: Performed By: #### P THNCA, FEBC, FERI, GLYHGB, VD25 #### [address] [id number] [facility] [facility]: Harpal Adair MD #### AGNES OLIVO, AZN #### [facility] [address] [place] [address] [facility] [facility]: Patricio Zuñiga MD #### CP, MG, CDP #### [address] [place] [address] [facility] [facility]: Hilton Armenta MD Albumin/Glob Ratio 1.6 Normal 1.0-2.5 [facility] Comment on above: Performed By: #### P THNCA, FEBC, FERI, GLYHGB, VD25 #### [address] [id number] [facility] [facility]: Harpal Adair MD #### AGNES OLIVO, AZN #### [facility] [address] [place] [address] [facility] [facility]: Patricio Zuñiga MD #### MG ANGEL, CDP #### [address] [place], [place] 0250283 [facility] [facility]: Hilton Armenta MD Alkaline Phos 85 U/L Normal 35-104 [facility] Comment on above: Performed By: #### P THNCA, FEBC, FERI, GLYHGB, VD25 #### [facility] [address] [place], [place] [id number] [facility]: Harpal Adair MD #### AGNES OLIVO, AZN #### [facility] [address], [place] [id number] [facility] [facility]: Patricio Zuñiga MD #### MG ANGEL, CDP #### [address] [place] [address] [facility] [facility]: Hilton Armenta MD ALT [Catalytic activity/Vol] 21 U/L Normal 5-33 [facility] Comment on above: Performed By: #### P THNCA, FEBC, FERI, GLYHGB, VD25 #### [address] [id number] [facility] [facility]: Harpal Adair MD #### AGNES OLVIO, AZN #### [facility] [address], [place] [id number] [facility] [facility]: Patricio Zuñiga MD #### ANGEL, MG, CDP #### [address] [place] [address] [facility]: Hilton Armenta MD Anion gap [Moles/Vol] 11 mmol/L Normal 9-17 [facility] Comment on above: Performed By: #### P THNCA, FEBC, FERI, GLYHGB, VD25 #### [facility] [address] [place] [address] [employer]: Harpal Adair MD #### AGNES OLIVO, AZN #### [facility] [address] [place] [address] [facility] [facility]: Patricio Zuñiga MD #### MG ANGEL, CDP #### [address] [place], [place] [phone] [facility] [facility]: Hilton Armenta MD AST [Catalytic activity/Vol] 22 U/L Normal <32 [facility] Comment on above: Performed By: #### ALFONSO COSTA, FERI, GLYHGB, VD25 #### [address] [address] [facility]: Harpal Adair MD #### AGNES OLIVO, AZN #### [facility] [address], [place] [id number] [facility] [facility]: Patricio Zuñiga MD #### MG ANGEL, CDP #### [address] [place], [place] 0503883 [facility] [facility]: Hilton Armenta MD Bilirubin [Mass/Vol] 0.2 mg/dL Low 0.3-1.2 [facility] Comment on above: Performed By: #### P BAILEY, ALFONSO, FERI, GLYHGB, VD25 #### [facility] [address] [place] [address] [employer]: Harpal Adair MD #### AGNES OLIVO, AZN #### [facility] [address] [place] [address] [facility] [facility]: Patricio Zuñiga MD #### ANGEL MG, CDP #### [address] [place] [address] [facility] [facility]: Hilton Armenta MD BUN/CRE Ratio 20 Normal 9-20 [facility] Comment on above: Performed By: #### P BAILEY, FECHRIS, FERI, GLYHGB, VD25 #### [address] [address] [facility] [facility]: Harpal Adair MD #### AGNES OLIVO, AZN #### [facility] [address], [place] [id number] [facility] [facility] [employer] [facility]: Patricio Zuñiga MD #### ANGEL, MG, CDP #### [facility] [address] [place] [address] [place] [address] [facility] [facility]: Hilton Armenta MD Calcium [Mass/Vol] 9.9 mg/dL Normal 8.6-10.4 [facility] Comment on above: Performed By: #### Kina AVALOS, ALFONSO, FERI, GLYHGB, VD25 #### [address] [address] [facility] [facility]: Harpal Adair MD #### AGNES OLIVO, AZN #### [facility] [address] [place] [address] [facility] [facility]: Patricio Zuñiga MD #### ANGEL, MG, CDP #### [facility] [address] [place] [address] [place] [address] [facility] [facility]: Hilton Armenta MD Chloride [Moles/Vol] 107 mmol/L Normal 98-107 [facility] Comment on above: Performed By: #### P DENNISA, FECHRIS, FERI, GLYHGB, VD25 #### [address] [address] [facility] [facility]: Harpal Adair MD #### AGNES OLIVO, AZN #### [facility] [address], [place] [id number] [facility] [facility]: Patricio Zuñiga MD #### CP, MG, CDP #### [facility] [address] [place] [address] [facility] [facility]: Hilton Armenta MD CO2 [Moles/Vol] 23 mmol/L Normal 20-31 [facility] Comment on above: Performed By: #### P GINCA, FEBC, FERI, GLYHGB, VD25 #### [facility] [address] [place], [place] [id number] [facility] [facility]: Harpal Adair MD #### ARIAN OLIVOTBCeli, AZN #### [facility] [address] [place] [address] [facility] [employer] [facility]: Patricio Zuñiga MD #### ANGEL, MG, CDP #### [address] [place] [address] [facility] [facility]: Hilton Armenta MD Creatinine [Mass/Vol] 0.6 mg/dL Normal 0.5-0.9 [facility] Comment on above: Performed By: #### P BAILEY, ALFONSO, FERI, GLYHGB, VD25 #### [address] [place] [address] [facility] [facility]: Harpal Adair MD #### AGNES OLIVO, AZN #### [facility] [address] [place] [address] [facility] [facility]: Patricio Zuñiga MD #### CP, MG, CDP #### [facility] [address] [place] [address] [facility] [facility]: Hilton Armenta MD GFR/1.73 sq M.predicted among non-blacks MDRD (S/P/Bld) [Vol rate/Area] mL/min/{1.73_m2} Normal >60 [facility] Comment on above: Result Comment: These results [...] P THNCA, FEBC, FERI, GLYHGB, VD25 #### [address] [address] [facility] [facility]: Harpal Adair MD #### AGNES OLIVO, AZN #### [facility] [address] [place] [id number] [facility] [facility]: Patricio Zuñiga MD #### MG ANGEL, CDP #### [address] [place] [address] [facility] [facility]: Hilton Armenta MD Glucose [Mass/Vol] 89 mg/dL Normal 70-99 [facility] Comment on above: Performed By: #### P GINCA, FEBC, FERI, GLYHGB, VD25 #### [address] [address] [facility]: Harpal Adair MD #### AGNES OLIVO, AZN #### [facility] [address] [place] [id number] [facility] [facility]: Patricio Zuñiga MD #### MG ANGEL, CDP #### [address] [place] [address] [facility] [facility]: Hilton Armenta MD Potassium [Moles/Vol] 4.3 mmol/L Normal 3.7-5.3 [facility] Comment on above: Performed By: #### P THNCA, FEBC, FERI, GLYHGB, VD25 #### [address] [address] [facility] [facility]: Harpal Adair MD #### AVITAS, AVITB1, AZN #### [facility] [address] [place] [address] [facility] [employer] [facility]: Patricio Zuñiga MD #### CP, MG, CDP #### [address] [place] [address] [facility] [employer] [facility]: Hilton Armenta MD Protein [Mass/Vol] 7.4 g/dL Normal 6.4-8.3 [facility] Comment on above: Performed By: #### P THNCA, FEBC, FERI, GLYHGB, VD25 #### [facility] [address] [place], [place] [id number] [facility]: Harpal Adair MD #### ARIAN OLIVOTB1, AZN #### [facility] [address], [place] [id number] [facility] [facility] [employer] [facility]: Patricio Zuñiga MD #### ANGEL, MG, CDP #### [address] [place] [address] [facility] [employer] [facility]: Hilton Armenta MD Sodium [Moles/Vol] 141 mmol/L Normal 135-144 [facility] Comment on above: Performed By: #### P THNCA, FEBC, FERI, GLYHGB, VD25 #### [address] [id number] [facility]: Harpal Adair MD #### ARIAN OLIVOTB1, AZN #### [facility] [address] [place] [address] [facility] [employer] [facility]: Patricio Zuñiga MD #### CP, MG, CDP #### [address] [place] [address] [facility] [facility]: Hilton Armenta MD Urea nitrogen [Mass/Vol] 12 mg/dL Normal 6-20 [facility] Comment on above: Performed By: #### P THNCA, FEBC, FERI, GLYHGB, VD25 #### [facility] [place] [address] [employer]: Harpal Adair MD #### ARIAN OLIVOTB1, AZN #### [facility] [address], [place] [id number] [facility] [facility]: Patricio Zuñiga MD #### ANGEL, MG, CDP #### [facility] [address] [place] [address] Dr[address] [place], [place] [phone] [facility] [facility]: Hilton Armenta MD Ferritinon 08-12-2023 Ferritin [Mass/Vol] 12 ng/mL Low 13-150 [facility] Comment on above: Performed By: #### P THNCA, FEBC, FERI, GLYHGB, VD25 #### [address] [address] [facility] [facility]: Harpal Adair MD #### AGNES OLIVO, AZN #### [facility] [address], [place] [id number] [facility] [facility]: Patricio Zuñiga MD #### ANGEL, MG, CDP #### [address] [place] [address] [facility] [employer]: Hilton Armenta MD Hemoglobin A1Con 08-12-2023 Glucose [Mass/Vol] 114 mg/dL Normal [facility] Comment on above: Result Comment: The ADA and AACC recommend providing the estimated average glucose result to permit better patient understanding of their HBA1c result. Performed By: #### P THNCA, FEBC, FERI, GLYHGB, VD25 #### [facility] [address] [place] [address] [facility] [facility]: Harpal Adair MD #### ARIAN OLIVOTB1, AZN #### [facility] [address] [place] [address] [facility] [facility]: Patricio Zuñiga MD #### CP, MG, CDP #### [facility] [address] [place], [place] [id number] [facility] [facility]: Hilton Armenta MD HbA1c (Bld) [Mass fraction] 5.6 % Normal 4.0-6.0 [facility] Comment on above: Performed By: #### P THNCA, FEBC, FERI, GLYHGB, VD25 #### [address] [address] [facility] [facility]: Harpal Adair MD #### AGNES OLIVO, AZN #### [facility] [address] [place] [address] [facility] [facility]: Patricio Zuñiga MD #### ANGEL, MG, CDP #### [facility] [address] [place] [address] [place] [address] [facility] [facility]: Hilton Armenta MD Iron Binding Cap.on 08-12-20 23 % Fe Saturation 16 % Low 20-55 [facility] Comment on above: Performed By: #### P THNCA, FEBC, FERI, GLYHGB, VD25 #### [address] [address] [facility]: Harpal Adair MD #### AGNES OLIVO, AZN #### [facility] [address] [place] [address] [facility] [employer] [facility]: Patricio Zuñiga MD #### CP, MG, CDP #### [facility] [address] [place], [place] [id number] [facility] [employer] [facility]: Hilton Armenta MD Iron [Mass/Vol] 57 ug/dL Normal 37-145 [facility] Comment on above: Performed By: #### P THNCA, FEBC, FERI, GLYHGB, VD25 #### [address] [id number] [facility] [facility] [employer] [facility]: Harpal Adair MD #### ARIAN OLIVOTB1, AZN #### [facility] [address] [place] [address] [facility] [employer] [facility]: Patricio Zuñiga MD #### CP, MG, CDP #### [address] [place], [place] [id number] [facility] [facility]: Hilton Armenta MD Total Fe Binding Cap 354 ug/dL Normal 250-450 [facility] Comment on above: Performed By: #### P THNCA, FEBC, FERI, GLYHGB, VD25 #### [facility] [address] [place], [place] 1478708 [facility]: Harpal Adair MD #### ARIAN OLIVOTB1, AZN #### [facility] [address], [place] [id number] [facility] [employer] [facility]: Patricio Zuñiga MD #### ANGEL, MG, CDP #### [address] [place] [address] [facility]: Hilton Armenta MD Unbound Fe Bind Cap 297 ug/dL Normal 112-347 [facility] Comment on above: Performed By: #### P THNCA, FEBC, FERI, GLYHGB, VD25 #### [address] [id number] [facility] [employer] [facility]: Harpal Adair MD #### AGNES OLIVO, AZN #### [facility] [address] [place] [address] [facility] [employer] [facility]: Patricio Zuñiga MD #### CP, MG, CDP #### [address] [place] [address] [facility] [employer]: Hilton Armenta MD Lipid Profileon 08-12-2023 Cholesterol [Mass/Vol] 153 mg/dL Normal <200 [facility] Comment on above: Result Comment: Cholesterol Guidelines: <200 Desirable 200-240 Borderline >240 Undesirable Performed By: #### L IPR #### [email or web address] [address] [place] [address] [facility] [employer] [facility]: Harpal Adair MD Cholesterol in HDL [Mass/Vol] 68 mg/dL Normal >40 [facility] Comment on above: Result Comment: HDL Guidelines: <40 Undesirable 40-59 Borderline >59 Desirable Performed By: #### L IPR #### [facility] [address] [place] [address] [facility] [facility]: Harpal Adair MD Cholesterol in LDL [Mass/Vol] 77 mg/dL Normal 0-130 [facility] Comment on above: Result Comment: LDL Guidelines: <100 Desirable 100-129 Near to/above Desirable 130-159 Borderline >159 Undesirable Direct (measured) LDL and calculated LDL are not interchangeable tests. Performed By: #### L IPR #### [facility] [email or web address] [address] [place] [address] [facility]: Harpal Adair MD Cholesterol.total/Cho lesterol in HDL [Mass ratio] 2.3 {ratio} Normal <5 [facility] Comment on above: Performed By: #### L IPR #### [facility] [email or web address] [address] [place] [address] [facility] [facility]: Harpal Adair MD Triglyceride [Mass/Vol] 39 mg/dL Normal <150 [facility] Comment on above: Result Comment: Triglyceride Guidelines: <150 Desirable 150-199 Borderline 200-499 High >499 Very high Based on AHA Guidelines for fasting triglyceride, June 2012. Performed By: #### L IPR #### [facility] [email or web address] [address] [place] [address] [facility] [employer] [facility]: Harpal Adair MD Magnesiumon 08-12-2023 Magnesium [Mass/Vol] 2.1 mg/dL Normal 1.6-2.6 [facility] Comment on above: Performed By: #### P THNCA, FEBC, FERI, GLYHGB, VD25 #### [facility] [address] [place] [address] [facility]: Harpal Adair MD #### AGNES OLIVO, AZN #### [facility] [address], [place] [id number] [facility]: Patricio Zuñiga MD #### ANGEL, MG, CDP #### [facility] [address] [place] [address] [place], [place] [id number] [facility]: Hilton Armenta MD PTH, Intacton 08-12-2023 PTH, Intact 17.1 pg/mL Normal 14.0-72.0 [facility] Comment on above: Result Comment: SAMP LES FROM PATIENTS ROUTINELY RECEIVING HIGH DOSE BIOTIN THERAPY MAY SHOW FALSELY DEPRESSED RESULTS. ADDITIONAL INFORMATION MAY BE REQUIRED FOR DIAGNOSIS. Performed By: #### P THNCA, FEBC, FERI, GLYHGB, VD25 #### [address] [address] [facility] [employer]: Harpal Adair MD #### AGNES OLIVO, AZN #### [facility] [address] [place], [place] [id number] [facility]: Patricio Zuñiga MD #### ANGEL MG, CDP #### [facility] [address] [place] [address] [place] [address] [facility]: Hilton Armenta MD Thyroid Stim. Horm.on 2022 Thyroid Stim. Horm. 1.50 uIU/mL Normal 0.30-5.00 [facility] Comment on above: Performed By: #### P THNCA, FEBC, FERI, GLYHGB, VD25 #### [address] [place] [address] [facility] [facility]: Harpal Adair MD #### ARIAN OLIVOTB1, AZN #### [facility] [address] [place], [place] [id number] [facility]: Patricio Zuñiga MD #### ANGEL, MG, CDP #### [facility] [address] [place] [address] [employer]: Hilton Armenta MD Thyroxine, Freeon 08-12-2023 Thyroxine, Free 1.2 ng/dL Normal 0.9-1.7 [facility] Comment on above: Performed By: #### P THNCA, FEBC, FERI, GLYHGB, VD25 #### [facility] [address], [place] [id number] [employer]: Harpal Adair MD #### PALLAVI, AVITB1, AZN #### [facility] [address] [place] [address] [employer]: Patricio Zuñiga MD #### CP, MG, CDP #### [facility] [address] [place], [place] [id number] [employer]: iHlton Armenta MD US GALLBLADDER RUQon 023 US GALLBLADDER RUQ EXAMINATION: RIGHT UPPER QUADRANT ULTRASOUND 08/12/2023 7:25 am COMPARISON: None. HISTORY: ORDERING SYSTEM PROVIDED HISTORY: LUQ pain TECHNOLOGIST PROVIDED HISTORY: This procedure can be scheduled via [employer]. Access your [employer] account by visiting [employer]. FINDINGS: LIVER: The liver demonstrates normal echogenicity [...] Bret Monson DO 08/12/23 Final result Normal [facility] Vitamin D 25 OHon 08-12-2023 Vitamin D 25 OH 45.1 ng/mL Normal >29.9 [facility] Comment on above: Result Comment: Reference Range: Vitamin D status Range Deficiency <20 ng/mL Mild Deficiency 20-30 ng/mL Sufficiency 30-100 ng/mL Toxicity >100 ng/mL Performed By: #### P THNCA, FEBC, FERI, GLYHGB, VD25 #### [facility] [email or web address] [address] [place] [address] [employer]: Harpal Adair MD #### TYREE OLIVO1, AZN #### [facility] [address] [place] [address] [employer]: Patricio Zuñiga MD #### CP, MG, CDP #### [facility] [address] [place] [address] [employer]: Hilton Armenta MD Patient Correspondenceon Patient Correspondence [id number] F Normal [facility] CBC with Diffon 07-30-2023 Abs. Basophil 0.08 k/uL Normal 0.00-0.20 [facility] Comment on above: Performed By: #### T VALERIO REED, LIP, CP #### [facility] [email or web address] [address] [place] [address] [employer]: Harpal Adair MD Abs.Imm.Granulocyte 0.04 k/uL Normal 0.00-0.30 [facility] Comment on above: Performed By: #### T BRIANNA, VALERIO, LIP, CP #### [facility] [email or web address] [address] [place] [address] [employer]: Harpal Adair MD Abs.Neutrophil (Seg) 6.94 k/uL Normal 1.50-8.10 [facility] Comment on above: Performed By: #### T BRIANNA, CDP, LIP, CP #### [facility] [email or web address] [address] [place] [address] [employer]: Harpal Adair MD Basophils/100 WBC (Bld) 1 % Normal 0-2 [facility] Comment on above: Performed By: #### T SH, CDP, LIP, CP #### [address] [address] [employer]: Harpal Adair MD Eosinophils (Bld) [#/Vol] 0.23 10*3/uL Normal 0.00-0.44 [facility] Comment on above: Performed By: #### T SH, CDP, LIP, CP #### [facility] [email or web address] [address] [place] [address] [employer]: Harpal Adair MD Eosinophils/100 WBC (Bld) 2 % Normal 1-4 [facility] Comment on above: Performed By: #### T SH, CDP, LIP, CP #### [facility] [email or web address] [address] [place] [address] [employer]: Harpal Adair MD Erythrocyte distribution width (RBC) [Ratio] 15.3 % High 11.8-14.4 [facility] Comment on above: Performed By: #### T SH, CDP, LIP, CP #### [facility] [employer] [address] [place] [address] [employer]: Harpal Adair MD Hematocrit (Bld) [Volume fraction] 38.8 % Normal 36.3-47.1 [facility] Comment on above: Performed By: #### T SH, CDP, LIP, CP #### [facility] [email or web address] [address] [place] [address] [employer]: Harpal Adair MD Hemoglobin (Bld) [Mass/Vol] 12.5 g/dL Normal 11.9-15.1 [facility] Comment on above: Performed By: #### T SH, CDP, LIP, CP #### [facility] [email or web address] [address] [place] [address] [employer]: Harpal Adair MD Immature granulocytes/100 WBC (Bld) 0 % Normal 0 [facility] Comment on above: Performed By: #### T SH, CDP, LIP, CP #### [facility] [email or web address] [address] [place] [address] [employer]: Harpal Adair MD Lymphocytes (Bld) [#/Vol] 2.19 10*3/uL Normal 1.10-3.70 [facility] Comment on above: Performed By: #### T SH, CDP, LIP, CP #### [facility] [address] [place] [address] [employer]: Harpal Adair MD Lymphocytes/100 WBC (Bld) 21 % Low 24-43 [facility] Comment on above: Performed By: #### T SH, CDP, LIP, CP #### [facility] [address] [place] [address] [employer]: Harpal Adair MD MCH (RBC) [Entitic mass] 30.6 pg Normal 25.2-33.5 [facility] Comment on above: Performed By: #### T SH, CDP, LIP, CP #### [facility] [address] [place] [address] [employer]: Harpal Adair MD MCHC (RBC) [Mass/Vol] 32.2 g/dL Normal 28.4-34.8 [facility] Comment on above: Performed By: #### T SH, CDP, LIP, CP #### [facility] [email or web address] [address] [place] [address] [employer]: Harpal Adair MD MCV (RBC) [Entitic vol] 94.9 fL Normal 82.6-102.9 [facility] Comment on above: Performed By: #### T SH, CDP, LIP, CP #### [address] [address] [employer]: Harpal Adair MD Monocytes (Bld) [#/Vol] 0.74 10*3/uL Normal 0.10-1.20 [facility] Comment on above: Performed By: #### T SH, CDP, LIP, CP #### [address] [address] [employer]: Harpal Adair MD Monocytes/100 WBC (Bld) 7 % Normal 3-12 [facility] Comment on above: Performed By: #### T SH, CDP, LIP, CP #### [address] [address] [employer]: Harpal Adair MD Neutrophil (Seg) 69 % High 36-65 [facility] Comment on above: Performed By: #### T SH, CDP, LIP, CP #### [address] [address] [employer]: Harpal Adair MD NRBC Automated 0.0 per 100 WBC Normal 0.0 [facility] Comment on above: Performed By: #### T SH, CDP, LIP, CP #### [address] [address] [employer]: Harpal Adair MD Platelet mean volume (Bld) [Entitic vol] 12.0 fL Normal 8.1-13.5 [facility] Comment on above: Performed By: #### T SH, CDP, LIP, CP #### [address] [address] [employer]: Harpal Adair MD Platelets (Bld) [#/Vol] 348 10*3/uL Normal 138-453 [facility] Comment on above: Performed By: #### T SH, CDP, LIP, CP #### [facility] [email or web address] [address] [place] [address] [employer]: Harpal Adair MD RBC (Bld) [#/Vol] 4.09 10*6/uL Normal 3.95-5.11 [facility] Comment on above: Performed By: #### T SH, CDP, LIP, CP #### [address] [address] [employer]: Harpal Adair MD RBC morphology finding Nom (Bld) ANISOCYTOSIS PRESENT Normal [facility] Comment on above: Performed By: #### T SH, CDP, LIP, CP #### [address] [address] [employer]: Harpal Adair MD WBC (Bld) [#/Vol] 10.2 10*3/uL Normal 3.5-11.3 [facility] Comment on above: Performed By: #### T SH, CDP, LIP, CP #### [address] [address] [employer]: Harpal Adair MD Comp Metabolic Profon 2022 Bilirubin [Mass/Vol] mg/dL Low 0.3-1.2 [facility] Comment on above: Performed By: #### T SH, CDP, LIP, CP #### [facility] [email or web address] [address] [place] [address] [employer]: Harpal Adair MD Albumin [Mass/Vol] 4.4 g/dL Normal 3.5-5.2 [facility] Comment on above: Performed By: #### T SH, CDP, LIP, CP #### [facility] [email or web address] [address] [place] [address] [employer]: Harpal Adair MD Albumin/Glob Ratio 1.4 Normal 1.0-2.5 [facility] Comment on above: Performed By: #### T SH, CDP, LIP, CP #### [facility] [email or web address] [address] [place] [address] [employer]: Harpal Adair MD Alkaline Phos 76 U/L Normal 35-104 [facility] Comment on above: Performed By: #### T SH, CDP, LIP, CP #### [facility] [email or web address] [address] [place] [address] [employer]: Harpal Adair MD ALT [Catalytic activity/Vol] 20 U/L Normal 5-33 [facility] Comment on above: Performed By: #### T SH, CDP, LIP, CP #### [facility] [email or web address] [address] [place] [address] [employer]: Harpal Adair MD Anion gap [Moles/Vol] 11 mmol/L Normal 9-17 [facility] Comment on above: Performed By: #### T SH, CDP, LIP, CP #### [facility] [email or web address] [address] [place] [address] [employer]: Harpal Adair MD AST [Catalytic activity/Vol] 22 U/L Normal <32 [facility] Comment on above: Performed By: #### T SH, CDP, LIP, CP #### [facility] [email or web address] [address] [place] [address] [employer]: Harpal Adair MD Calcium [Mass/Vol] 9.6 mg/dL Normal 8.6-10.4 [facility] Comment on above: Performed By: #### T SH, CDP, LIP, CP #### [facility] [email or web address] [address] [place] [address] [employer]: Harpal Adair MD Chloride [Moles/Vol] 105 mmol/L Normal 98-107 [facility] Comment on above: Performed By: #### T SH, CDP, LIP, CP #### [facility] [email or web address] [address] [place] [address] [employer]: Harpal Adair MD CO2 [Moles/Vol] 23 mmol/L Normal 20-31 [facility] Comment on above: Performed By: #### T SHVALERIO, LIP, CP #### [address] [address] [employer]: Harpal Adair MD Creatinine [Mass/Vol] 0.6 mg/dL Normal 0.5-0.9 [facility] Comment on above: Performed By: #### T SH, CDP, LIP, CP #### [address] [address] [employer]: Harpal Adair MD GFR/1.73 sq M.predicted among non-blacks MDRD (S/P/Bld) [Vol rate/Area] mL/min/{1.73_m2} Normal >60 [facility] Comment on above: Result Comment: These [...] #### T VALERIO REED, LIP, CP #### [facility] [email or web address] [address] [place] [address] [employer]: Harpal Adair MD Glucose [Mass/Vol] 73 mg/dL Normal 70-99 [facility] Comment on above: Performed By: #### T SH CDP, LIP, CP #### [facility] [email or web address] [address] [place] [address] [employer]: Harpal Adair MD Potassium [Moles/Vol] 4.0 mmol/L Normal 3.7-5.3 [facility] Comment on above: Performed By: #### T SH, CDP, LIP, CP #### [facility] [email or web address] [address] [place] [address] [employer]: Harpal Adair MD Protein [Mass/Vol] 7.5 g/dL Normal 6.4-8.3 [facility] Comment on above: Performed By: #### T SH, CDP, LIP, CP #### [address] [address] [employer]: Harpal Adair MD Sodium [Moles/Vol] 139 mmol/L Normal 135-144 [facility] Comment on above: Performed By: #### T SH, CDP, LIP, CP #### [address] [address] [employer]: Harpal Adair MD Urea nitrogen [Mass/Vol] 15 mg/dL Normal 6-20 [facility] Comment on above: Performed By: #### T SH, CDP, LIP, CP #### [address] [address] [employer]: Harpal Adair MD Lipaseon 07-30-2023 Lipase [Catalytic activity/Vol] 45 U/L Normal 13-60 [facility] Comment on above: Performed By: #### T SH, CDP, LIP, CP #### [address] [address] [employer]: Harpal Adair MD Thyroid Stim. Horm.on 2022 Thyroid Stim. Horm. 1.18 uIU/mL Normal 0.30-5.00 [facility] Comment on above: Performed By: #### T SH, CDP, LIP, CP #### [address] [address] [employer]: Harpal Adair MD UA w/Reflex Cultureon 2022 Bilirubin, SemiQt,Ur Negative Normal NEG [facility] Comment on above: Performed By: #### U AX #### [address] [address] [employer]: Harpal Adair MD Blood, Urine Negative Normal NEG [facility] Comment on above: Performed By: #### U AX #### [address] [address] [employer]: Harpal Adair MD Clarity (U) Clear Normal CLEAR [facility] Comment on above: Performed By: #### U AX #### [address] [address] [employer]: Harpal Adair MD Color (U) Yellow Normal YEL [facility] Comment on above: Performed By: #### U AX #### [address] [address] [employer]: Harpal Adair MD Comment Microscopic exam not performed based on chemical results unless requested in Normal [facility] Comment on above: Result Comment: orig inal order. Performed By: #### U AX #### [address] [address] [employer]: Harpal Adair MD Glucose Ql (U) Negative Normal NEG [facility] Comment on above: Performed By: #### U AX #### [address] [address] [employer]: Harpal Adair MD Ketones Ql (U) Negative Normal NEG [facility] Comment on above: Performed By: #### U AX #### [address] [address] [employer]: Harpal Adair MD Leukocyte esterase Test strip Ql (U) Negative Normal NEG [facility] Comment on above: Performed By: #### U AX #### [address] [address] [employer]: Harpal Adair MD Nitrite,Ur Negative Normal NEG [facility] Comment on above: Performed By: #### U AX #### [facility] [address] [place] [address] [employer]: Harpal Adair MD PH,Ur 5.0 Normal 5.0-8.0 [facility] Comment on above: Performed By: #### U AX #### [address] [address] [employer]: Harpal Adair MD Protein Ql (U) Negative Normal NEG [facility] Comment on above: Performed By: #### U AX #### [address] [address] [employer]: Harpal Adair MD Spec. [employer],Ur 1.020 Normal 1.005-1.030 [facility] Comment on above: Performed By: #### U AX #### [address] [address] [employer]: Harpal Adair MD Urobilinogen,Ur Normal Normal 0.0-1.0 [facility] Comment on above: Performed By: #### U AX #### [address] [address] [employer]: Harpal Adair MD ED Note-Physicianon 10-31-20 23 ED Note-Physician Basic Information Time Seen: Shama Macdonald PA-C 06/09/2023 15:45 Chief Complaint Pt presents to ED with complaints of MALDONADO onset today. History of Present Illness This patient presents to the emergency department chief complaint of maryam. She states that she has spent $10,000 in the last 2 weeks. She did see her psychiatrist at [facility] today and they are starting her [...] of care. (more content not included)... Normal [facility] Comment on above: Result Comment: Elec tronically Signed By: Shama Macdonald PA-C\.br\Date and Time Signed: 07/14/23 19:57 EDT\.br\Electronically Co-Signed By: Alexis Shukla DO\.br\Date and Time Co-Signed: 07/20/23 07:11 EST [employer] Quick Testingon 2022 Result Negative [employer] Other Consultation Noteon 07-08-20 Consultation Note [id number]#[id number] F Normal [facility] Consent for Treatmenton 06-14 Consent for Treatment [id number]#1.00TIF F Normal [facility] ED Clinical Summaryon 2022 ED Clinical Summary (Inserted Image. Jordana ble to display) [address] [address] ED Clinical Summary Person Information Name: SHAZIA CHOU [facility] Age: 32 Years : 1990 Sex: Female Language: Malaysian PCP: Jennie Ames DO Marital Status: Phone: [phone] MRN: Visit Id: Visit Reason: Headache; Neck [...] 07/02/2023 15:29:14 07/02/2023 15:29:14 07/02/2023 15:29:14 ADDRESS: [address] [place] [phone] PHYS DOC NOTES: MEDICAL INFORMATION: Prescriptions Given: [...] EDUCATION INFORMATION: Instructions: Follow up: DIAGNOSIS: Normal [facility] ED Patient Education Noteon 07-02-2023 ED Patient Education Note Normal [facility] ED Patient Summaryon 023 ED Patient Summary (Inserted Image. Jordana ble to display) [place] [id number] Patient Discharge Instructions Person Information Name: SHAZIA CHOU Age: 32 Years Arrival Date: 07/02/2023 14:03:05 Discharge Diagnosis: Primary Care Physician: Jennie Ames DO Provider Information Primary Provider: Bakari Chester DO Advanced Embedded Hardware Engineer:Merari Polanco PA-C The exam and treatment you received in the Emergency Department were for an urgent problem and are not intended as complete care. It is important that you follow up with a doctor, nurse practitioner, or physician?s water quality assistant for ongoing care. If your symptoms [...] opioids can be used to help relieve wvankbit-qj-hyixeo pain and are often prescribed following a [...] be struggling with addiction, tell your health pediatric acute care unit nurse and ask for guidance or call [employer]?S National Helpline at 3-365-238-HELP. v Source: [place] Department of Health and Human Services/Center for Disease Control & Prevention [facility] Medications Given: Medication Dose Route No medication (more content not included)... Normal [facility] Consultation Noteon 06-22-20 Consultation Note [id number]#[id number] Normal [facility] Consultation Noteon 06-19-20 Consultation Note [id number]#1.00TIF F [facility] CNPNon 06-15-2023 CNPN Telephone (NEADFV) -------- SHAZIA CHOU ([id number]) 1990 F Date Time Provider Department 06/15/23 EILEEN MANZANO During your visit today, we recorded the following information about you: Bunny Durbin, RN 06/15/2023 4:57 PM Signed Received clinical notes and test results from [facility] ED visit from 06/10/23. 13 pages. Scanned to chart via [employer]. Routed to provider for review Glen Singh [...] is not alleviating the problem. Patient # [phone] Sophiajil Gorge 07/03/2023 12:15 PM Signed Per instructions from Dr. Manzano. LM for patient, also sent message via [employer]. She needs to be back on diamox [...] 40 mg by mouth once daily. - litbbhykgizn-lla-xnhs-FA -vit K (BARIATRIC MULTIVITAMINS) 45 mg iron- [...] Encounter Status:Closed by GORGE BETANCUR on 07/03/23 [facility] Telephone (NIQ) -------- SHAZIA CHOU ([id number]) 1990 F Date Time Provider Department 06/15/23 EILEEN MANZANO During your visit today, we recorded the following information about you: Fabby Fam 06/15/2023 3:[address] Brain report from [facility]. Scanned to chart for review. Bunny Durbin RN 06/15/2023 4:[address] brain results available in scanned documents for your review. Bunny Durbin RN 06/16/2023 3:04 PM Signed Call to patient without answer. Voice message left asking her to review her [employer] message with a response from . Informed [...] 40 mg by mouth once daily. - sfpwvpzhpeob-ioi-qmxb-FA -vit K (BARIATRIC MULTIVITAMINS) 45 mg iron- [...] Encounter Status:Closed by BUNNY DURBIN on 06/16/23 [facility] Ernesto [facility] -------- SONYASHAZIA ([id number]) 1990 F Date Time Provider Department 06/11/23 MAN, EILEEN WHITFIELDVS8 During your visit today, we recorded the [...] Chou, 1990). 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 The results are available [facility]. Patient is still experiencing vision changes and headaches. [phone] Thank you calling [facility]. You will receive a return call within [...] Signed Spoke with Karin at radiology at [facility]. She will fax the CT Brain results to our office. Fax number provided. Bunny Durbin RN 06/12/2023 2:53 PM Signed As of this hour, no fax received for CT Brain . Spoke with administrative representative again in radiology and different fax [...] was evaluated in the ED today [facility] for complaints of 'feeling like someone was [...] 40 mg by mouth once daily. - lzaekfzduejx-thf-pndi-FA -vit K (BARIATRIC MULTIVITAMINS) 45 mg iron- [...] Status:Closed by BUNNY DURBIN on 06/15/23 Normal [facility] Discharge Instructionson Discharge Instructions [id number] :127 Normal [facility] Acetamnphn Lvlon 06-09-2023 Acetaminophen [Mass/Vol] ug/mL Low 15-30 [facility] Comment on above: Performed By: #### 2 [id number], [id number], 4359554, 1820187, 6817859, [id number] ####[facility] [address] [place] [address] Auto Diffon 06-09-2023 Basophils/100 WBC (Bld) 0.6 % Normal 0.0-2.0 [facility] Comment on above: Order Comment: Order Added by Discern Expert. Performed By: #### 2 883189, 5335711, 7498939, 8148598, 6118805, [id number] ####[facility] [address] [place] [address] Basophils/Leukocytes Auto (Bld) [Pure # fraction] 0.0 E9/L Normal 0.0-0.2 [facility] Comment on above: Order Comment: Order Added by Discern Expert. Performed By: #### 2 668730, 3438538, 1882979, 8115976, 7432276, [id number] ####[facility] [address] [place] [address] Eosinophils/100 WBC (Bld) 1.9 % Normal 0.0-8.0 [facility] Comment on above: Order Comment: Order Added by Discern Expert. Performed By: #### 2 883667, 8721208, 3174899, 9032477, 0797546, [id number] ####[address] [address] Eosinophils/Leukocyte s Auto (Bld) [Pure # fraction] 0.2 E9/L Normal 0.0-0.5 [facility] Comment on above: Order Comment: Order Added by Discern Expert. Performed By: #### 2 656609, 7134311, 8792064, 8511599, 2333315, 99900429 ####[address] [address] Lymphocytes/100 WBC (Bld) 23.4 % Normal 14.0-50.0 [facility] Comment on above: Order Comment: Order Added by Discern Expert. Performed By: #### 2 866687, 4703344, 7804231, 7725937, 7443252, 92593037 ####[address] [address] Lymphocytes/Leukocyte s Auto (Bld) [Pure # fraction] 2.0 E9/L Normal 1.0-4.0 [facility] Comment on above: Order Comment: Order Added by Discern Expert. Performed By: #### 2 059518, 3290604, 2042015, 1568412, 9937161, [id number] ####[address] [address] Monocytes/100 WBC (Bld) 6.9 % Normal 4.0-14.0 [facility] Comment on above: Order Comment: Order Added by Discern Expert. Performed By: #### 2 206457, 6336933, 0855882, 4537013, 7898050, 80797844 ####[address] [address] Monocytes/Leukocytes Auto (Bld) [Pure # fraction] 0.6 E9/L Normal 0.2-1.0 [facility] Comment on above: Order Comment: Order Added by Discern Expert. Performed By: #### 2 362156, 0252715, 6265265, 4383354, 6726064, [id number] ####[place] [address] [place] [address] Neutrophils/100 WBC (Bld) 67.2 % Normal 36.0-75.0 [facility] Comment on above: Order Comment: Order Added by Discern Expert. Performed By: #### 2 967339, 7593990, 0496849, 3191744, 4459395, 49965174 ####[address] [place] [address] Neutrophils/Leukocyte s Auto (Bld) [Pure # fraction] 5.6 E9/L Normal 2.0-7.5 [facility] Comment on above: Order Comment: Order Added by Discern Expert. Performed By: #### 2 449208, 2171539, 3643965, 9199185, 3121270, 95167477 ####[address] [address] CBC w/ Auto Diffon 3 Erythrocyte distribution width (RBC) [Ratio] 18.2 % High 10.9-14.2 [facility] Comment on above: Performed By: #### 2 991619, 9014681, 6758935, 5189767, 2779634, 71366374 ####[address] [address] Hematocrit (Bld) [Volume fraction] 34.3 % Normal 34.0-46.0 [facility] Comment on above: Performed By: #### 2 965161, 5422079, 7589790, 9387927, 4101193, 82989835 ####[address] [place] [address] Hemoglobin (Bld) [Mass/Vol] 11.5 g/dL Low 12.0-16.0 [facility] Comment on above: Performed By: #### 2 226856, 6031981, 6418318, 7798560, 6297397, 59789408 ####[address] [place] [address] MCH (RBC) [Entitic mass] 30.6 pg Normal 27.0-34.0 [facility] Comment on above: Performed By: #### 2 662662, 3252800, 3823287, 8377233, 0302570, 16795051 ####[address] [place] [address] MCHC (RBC) [Mass/Vol] 33.6 g/dL Normal 31.4-36.0 [facility] Comment on above: Performed By: #### 2 693626, 7512686, 0326429, 0843122, 2407155, 23948586 ####[address] [address] MCV (RBC) [Entitic vol] 91.0 fL Normal 80.0-100.0 [facility] Comment on above: Performed By: #### 2 791866, 8801060, 5393758, 4936019, 9249443, 34534767 ####[address] [address] Platelet mean volume (Bld) [Entitic vol] 9.8 fL Normal 6.4-10.8 [facility] Comment on above: Performed By: #### 2 251735, 6027674, 2706453, 3760414, 2927015, 74719286 ####[address] [address] Platelets (Bld) [#/Vol] 283.0 E9/L Normal 150.0-500.0 [facility] Comment on above: Performed By: #### 2 649861, 6382180, 4771155, 8270857, 3543860, 96978321 ####[address] [place] [address] RBC (Bld) [#/Vol] 3.8 E12/L Low 4.3-5.9 [facility] Comment on above: Performed By: #### 2 526244, 8702734, 9362200, 9613231, 5664333, 36975857 ####[facility] [address] [place] [address] WBC corrected for nucl RBC Auto (Bld) [#/Vol] 8.4 E9/L Normal 4.0-11.0 [facility] Comment on above: Performed By: #### 2 190150, 8648010, 9358590, 5848121, 2464166, 60629087 ####[address] [place] [address] CMPon 06-09-2023 Albumin [Mass/Vol] 4.1 g/dL Normal 3.3-5.0 [facility] Comment on above: Performed By: #### 2 906797, 9223959, 9134443, 7955997, 9677936, 91684011 ####[address] [place] [address] Albumin/Globulin (S) [Mass conc ratio] 1.3 Normal 1.1-2.2 [facility] Comment on above: Performed By: #### 2 101034, 2331435, 3115986, 0504928, 6670114, 94652195 ####[address] [place] [address] ALP [Catalytic activity/Vol] 58 Int._Unit/L Normal 21-98 [facility] Comment on above: Performed By: #### 2 065357, 3753209, 0776702, 8444472, 7486069, 34647014 ####[address] [place] [address] ALT No additional P-5'-P [Catalytic activity/Vol] 18 Int._Unit/L Normal 6-46 [facility] Comment on above: Performed By: #### 2 103295, 4105374, 5462553, 8372895, 7896584, 39081566 ####[facility] [address] [place] [address] AST [Catalytic activity/Vol] 20 Int._Unit/L Normal 5-43 [facility] Comment on above: Performed By: #### 2 536159, 2058472, 2472785, 4759165, 9165270, 28202312 ####[facility] [address] [place] [address] Bilirubin [Mass/Vol] 0.1 mg/dL Normal 0.0-1.1 [facility] Comment on above: Performed By: #### 2 537104, 0503409, 5122293, 0669900, 4724175, 10824609 ####[facility] [address] [place] [address] Creatinine [Mass/Vol] 0.6 mg/dL Normal 0.5-1.3 [facility] Comment on above: Performed By: #### 2 439895, 0748493, 8955191, 5566936, 5223136, 39490581 ####[facility] [address] [place] [address] Globulin (S) [Mass/Vol] 3.2 g/dL Normal 1.4-4.0 [facility] Comment on above: Performed By: #### 2 221845, 1730277, 2110591, 7509632, 9243183, 22882722 ####[facility] [address] [place] [address] Protein [Mass/Vol] 7.3 g/dL Normal 6.0-7.8 [facility] Comment on above: Performed By: #### 2 759369, 8398895, 9808224, 5976774, 6089789, 55329889 ####[facility] [address] [place] [address] Urea nitrogen [Mass/Vol] 15 mg/dL Normal 5-21 [facility] Comment on above: Performed By: #### 2 963781, 7628932, 8181259, 7728145, 7548518, 44584524 ####[facility] [address] [place] [address] Urea nitrogen/Creatinine [Mass ratio] 25 No Units High 10-20 [facility] Comment on above: Performed By: #### 2 706991, 5612735, 6933773, 7652936, 5899358, 44798470 ####[facility] [address] [place] [address] Anion gap [Moles/Vol] 13 mmol/L Normal 6-16 [facility] Comment on above: Performed By: #### 2 572905, 0543770, 1311271, 4640665, 6303662, 89787075 ####[facility] [address] [place] [address] Calcium [Mass/Vol] 9.3 mg/dL Normal 8.9-11.1 [facility] Comment on above: Performed By: #### 2 764086, 7341323, 5860682, 9725098, 7932759, 37729656 ####[facility] [address] [place] [address] Chloride [Moles/Vol] 107 mmol/L Normal 101-111 [facility] Comment on above: Performed By: #### 2 947703, 2670347, 1540289, 0253492, 8441458, 98538516 ####[facility] [address] [place] [address] CO2 [Moles/Vol] 23 mmol/L Normal 21-31 [facility] Comment on above: Performed By: #### 2 848136, 6865840, 3895690, 4462971, 8052617, 21980585 ####[facility] [address] [place] [address] Glucose [Mass/Vol] 91 mg/dL Normal 55-199 [facility] Comment on above: Result Comment: If t his glucose result represents a fasting glucose, interpretation should refer to the following reference range: 55-99 mg/dL Performed By: #### 2 418331, 6667047, 1072263, 5000342, 4495991, 35724699 ####[facility] [address] [place] [address] Potassium [Moles/Vol] 3.6 mmol/L Normal 3.5-5.3 [facility] Comment on above: Performed By: #### 2 167940, 3467804, 5394417, 6215102, 9235101, 82590588 ####[facility] [address] [place] [address] Sodium [Moles/Vol] 139 mmol/L Normal 135-145 [facility] Comment on above: Performed By: #### 2 109844, 6987287, 3919478, 8425361, 0501162, 06497621 ####[facility] [address] [place] [address] Consent for Treatmenton 05-16 Consent for Treatment [id number]: 127 Normal [facility] ED Clinical Summaryon 2022 ED Clinical Summary (Inserted Image. Jordana ble to display) [address] [address] ED Clinical Summary Person Information Name: SHAZIA CHOU [facility] Age: 32 Years : 1990 Sex: Female Language: Malaysian PCP: Jennie Ames DO Marital Status: Phone: [phone] MRN: [id number] Visit Id: Visit Reason: Headache; HEADACHE Speciality: [...] 06/09/2023 18:42:22 06/09/2023 18:42:22 06/09/2023 18:42:22 ADDRESS: [address] [place] [id number] PHYS DOC NOTES: MEDICAL INFORMATION: Prescriptions Given: [...] (at bedtime). PATIENT EDUCATION INFORMATION: Instructions: Paresthesia, Vqwb-cd-Nzvr; Migraine Headache, Stxo-ok-Svfp Follow up: With: Address: When: [facility] In 3 days 06/12/2023 With: Address: When: Jennie De La Paz, Mic C, [facility] [address] [place] [address] [facility] () In 3 days 06/12/2023 DIAGNOSIS: 1:Headache; 2:Paresthesia of arm Normal [facility] ED Patient Education Noteon 06-09-2023 [...] liquor (44 mL). General instructions ? Take vlez-gaw-otjdlfj and prescription medicines only as told by [...] provider. Document Revised: 05/12/2022 Document Reviewed: 05/12/2022 [employer] Patient Education ? 2022 [employer] Migraine Headache A migraine headache is [...] ? Tiredness. (more content not included)... Normal [facility] ED Patient Summaryon 023 ED Patient Summary (Inserted Image. Jordana ble to display) [address] [address] Patient Discharge Instructions Person Information Name: SHAZIA CHOU Age: 32 Years Arrival Date: 06/09/2023 15:33:36 Discharge Diagnosis: 1:Headache; 2:Paresthesia of arm Primary Care Physician: Jennie Ames DO Provider Information Primary Provider: Alexis Shukla DO Advanced Embedded Hardware Engineer:None The exam and treatment you received in the Emergency Department were for an urgent problem and are not intended as complete care. It is important that you follow up with a doctor, nurse practitioner, or physician?s water quality assistant for ongoing care. If your symptoms become worse or you do not improve as expected and you are unable to reach your usual health care provider, you should return to the Emergency Department. We are available 24 hours a day. SHAZIA CHOU has been given the following list of patient education materials, prescriptions and follow-up instructions: Follow-up Instructions: With: Address: When: [facility] In 3 days 06/12/2023 With: Address: When: Jennie Ames [address] [place] [address] Ailyn, Mic C, [facility] [phone] Business (1) In 3 days 06/12/2023 In the event that this physician does not participate in your insurance network, please consult with your insurance company to find a nearby participating provider. Patient Education Materials: Paresthesia, Mtiy-ay-Doft; Migraine Headache, Dmqc-dx-Irwp A MESSAGE TO ALL PATIENTS REGARDING OPIOIDS PRESCRIPTION OPIOIDS: WHAT YOU NEED TO KNOW Prescription opioids can be used to help relieve qtztelcz-bo-vtlaym pain and are often prescribed following a [...] addiction, tell (more content not included)... Normal [facility] Ethanolon 06-09-2023 Ethanol [Mass/Vol] mg/dL Normal <=7 [facility] Comment on above: Performed By: #### 2 707716 ####[facility] [address] [place] [address] Salicylateon 06-09-2023 Salicylates [Mass/Vol] mg/dL Low 6-29 [facility] Comment on above: Performed By: #### 2 180439, 3804661, 2080502, 0342941, 1313304, 62756028 ####[facility] [address] [place] [address] U Drug Screenon 06-09-2023 Amphetamines Screen method >1000 ng/mL Ql (U) Negative Normal Negative [facility] Comment on above: Result Comment: Nega tive Cutoff: <1000 ng/mL Performed By: #### 2 337809 ####[facility] [address] [place] [address] Barbiturates Screen Ql (U) Negative Normal Negative [facility] Comment on above: Result Comment: Nega tive Cutoff: <200 ng/mL Performed By: #### 2 738405 ####[facility] [address] [place] [address] Benzodiazepines Ql (U) Negative Normal Negative [facility] Comment on above: Result Comment: Nega tive Cutoff: <200 ng/mL Performed By: #### 2 617528 ####[facility] [address] [place] [address] Cocaine Ql (U) Negative Normal Negative [facility] Comment on above: Result Comment: Nega tive Cutoff: <300 ng/mL Performed By: #### 2 769252 ####[address] [place] [address] Opiates Screen Ql (U) Negative Normal Negative [facility] Comment on above: Result Comment: Nega tive Cutoff: <300 ng/mL Performed By: #### 2 465911 ####[address] [place] [address] Phencyclidine Screen method >25 ng/mL Ql (U) Negative Normal Negative [facility] Comment on above: Result Comment: Nega tive Cutoff: <25 ng/mL These drug screen results are to be used for medical (i.e., treatment) purposes only. Unconfirmed drug screening results must not be used for non-medical purposes (e.g., employment testing, legal testing). Performed By: #### 2 067389 ####[address] [place] [address] Tetrahydrocannabinol Screen method >50 ng/mL Ql (U) Negative Normal Negative [facility] Comment on above: Result Comment: Nega tive Cutoff: <50 ng/mL Performed By: #### 2 911882 ####[facility] [address] [place] [address] UA With Cult Reflexon 2022 Bilirubin Ql (U) Negative Normal Negative [facility] Comment on above: Performed By: #### 1 0891469 #### [facility] [address] [place] [address] Clarity (U) CLEAR Normal Clear [facility] Comment on above: Performed By: #### 1 0559579 #### [facility] [address] [place] [address] Color (U) YELLOW Normal Yellow [facility] Comment on above: Performed By: #### 1 0255467 #### [facility] [address] [place] [address] Crystals LM Ql (Urine sed) Present Normal [facility] Comment on above: Performed By: #### 1 4025652 #### [facility] [address] [place] [address] Epithelial cells.squamous LM.HPF (Urine sed) [#/Area] 0-2 Normal 0-2 [facility] Comment on above: Performed By: #### 1 5497726 #### [facility] [address] [place] [address] Glucose Test strip (U) [Mass/Vol] Negative Normal Negative [facility] Comment on above: Performed By: #### 1 0325357 #### [facility] [address] [place] [address] Hemoglobin Ql (U) Negative Normal Negative [facility] Comment on above: Performed By: #### 1 5113416 #### [facility] [address] [place] [address] Ketones (U) [Mass/Vol] Negative Normal Negative [facility] Comment on above: Performed By: #### 1 8435034 #### [facility] [address] [place] [address] [place].plasma/Lithiu m.RBC (Bld) [Mass ratio] 0-3 Normal 0-3 [facility] Comment on above: Performed By: #### 1 8753977 #### [facility] [address] [place] [address] Nitrite Ql (U) Negative Normal Negative [facility] Comment on above: Performed By: #### 1 1203573 #### [facility] [address] [place] [address] pH (U) 6.0 [pH] Invalid Interpretation Code 5.0-9.0 [facility] Comment on above: Performed By: #### 1 5907870 #### [facility] [address] [place] [address] Protein (U) [Mass/Vol] Negative Normal Negative [facility] Comment on above: Performed By: #### 1 4747276 #### [facility] [address] [place] [address] Specific gravity (U) [Rel density] 1.010 Invalid Interpretation Code 1.005-1.030 [facility] Comment on above: Performed By: #### 1 0609600 #### [facility] [address] [place] [address] Type of Urine collection method Clean Catch Normal [facility] Comment on above: Performed By: #### 1 5034226 #### [facility] [address] [place], [place] [address] Urobilinogen Qn (U) 0.2 {Lucila'U}/dL Normal 0.0-1.0 [facility] Comment on above: Performed By: #### 1 1115521 #### [facility] [address] [place] [address] WBC Auto Ql (U) Negative Normal Negative [facility] Comment on above: Performed By: #### 1 2602513 #### [facility] [address] [place] [address] WBC LM.HPF (Urine sed) [#/Area] 0-5 Normal 0-5 [facility] Comment on above: Performed By: #### 1 7634616 #### [facility] [address] [place] [address] eGFRon 06-09-2023 GFR/1.73 sq M.predicted among non-blacks MDRD (S/P/Bld) [Vol rate/Area] 121 mL/min/1.73 m2 Normal >=59 [facility] Comment on above: Order Comment: Order added by Discern Expert. Result Comment: [employer] Locomotive gurpreet kidney disease could be indicated at eGFR's of less than 60 mL/min/1.73m2. Kidney failure is indicated at less than 15 mL/min/1.73m2. Performed By: #### 2 293904, 8417572, 3196073, 7601875, 0597348, 64360350 ####[facility] [address] [place] [address] Vit Aon 03-24-2023 Retinol [Mass/Vol] 42.9 microgram/dL Invalid Interpretation Code 18.9-57.3 [facility] Comment on above: Result Comment: Refe rence intervals for vitamin A determined from [facility] internal studies. Individuals with vitamin A less than 20 ug/dL are considered vitamin A deficient and those with serum concentrations less than 10 ug/dL are considered severely deficient. This test was developed and its performance characteristics determined by [employer]. It has not been cleared or approved by the Food and Drug Administration. Performed at: [address] [id number] MD Shorty Rodríguez Performed By: #### 2 080720, 68677683, 9206690, 7375621, 08751564, 14161304, 256120245, 4152986, 5024083, 70332030, 0768963, 5273415, 618435655, 20135760, 6904230, 5840171, 7809529, 7282993 ####[facility] [address] [place] [address] Vit B1on 03-24-2023 Thiamine (Bld) [Moles/Vol] 171.7 nmol/L Invalid Interpretation Code 66.5-200.0 [facility] Comment on above: Result Comment: This test was developed and its performance characteristics determined by [employer]. It has not been cleared or approved by the Food and Drug Administration. Performed at: [address] [id number] MD Shorty Rodríguez Performed By: #### 2 820974, 11066859, 9200007, 7489438, 50289965, 23346043, 805932941, 0356973, 4087058, 68186618, 7570754, 0227104, 842442628, 55566843, 9791227, 8570916, 0171253, 3527720 ####[facility] [address] [place] [address] Zinc Lvlon 03-24-2023 Zinc [Mass/Vol] 85 microgram/dL Invalid Interpretation Code 44115 [facility] Comment on above: Result Comment: This test was developed and its performance characteristics determined by [facility]. It has not been cleared or approved by the Food and Drug Administration. Detection Limit = 5 Performed at: [address] [id number] MD Shorty Rodríguez Performed By: #### 2 925847, 87064841, 0783646, 4381755, 31560081, 03968611, 971626070, 0920333, 2530917, 42527092, 8558101, 9619072, 929060115, 93113777, 8367771, 9663307, 3675261, 5178970 ####[facility] [address] [place] [address] PTH Intacton 03-20-2023 Parathyrin.intact [Mass/Vol] 17 pg/mL Invalid Interpretation Code [facility] Comment on above: Result Comment: Perf ormed at: [address] [id number] PhD Cordelia Madera Performed By: #### 1 6815634 ####[facility] [address] [place] [address] Auto Diffon 03-19-2023 Basophils/100 WBC (Bld) 1.1 % Normal 0.0-2.0 [facility] Comment on above: Order Comment: Order Added by Discern Expert. Performed By: #### 2 240300, 05246453, 0457633, 2556620, 97749421, 44769724, 564447984, 7537032, 0752426, 35426706, 0922578, 3093336, 440454864, 01765417, 3576644, 8162850, 5883755, 0199571 ####[facility] [address] [place] [address] Basophils/Leukocytes Auto (Bld) [Pure # fraction] 0.1 E9/L Normal 0.0-0.2 [facility] Comment on above: Order Comment: Order Added by Discern Expert. Performed By: #### 2 692544, 61316205, 9769416, 9828638, 34229178, 42924558, 524582995, 5111998, 4079529, 74907654, 7512195, 9463157, 139338004, 92841465, 8328974, 7007192, 6392270, 9752259 ####[address] [place] [address] Eosinophils/100 WBC (Bld) 4.1 % Normal 0.0-8.0 [facility] Comment on above: Order Comment: Order Added by Discern Expert. Performed By: #### 2 480102, 44886501, 5852915, 7598436, 55915741, 81998655, 397608671, 3186987, 5587861, 06592528, 8624186, 4629256, 438799318, 49536871, 8161872, 3794284, 4569301, 5941374 ####[address] [place] [address] Eosinophils/Leukocyte s Auto (Bld) [Pure # fraction] 0.4 E9/L Normal 0.0-0.5 [facility] Comment on above: Order Comment: Order Added by Discern Expert. Performed By: #### 2 391203, 85562248, 4209015, 6220713, 96606535, 10707990, 645798269, 1065313, 8924360, 33616678, 8059380, 6473029, 813570008, 19576489, 0232379, 7055224, 8803993, 0306734 ####[facility] [address] [place] [address] Lymphocytes/100 WBC (Bld) 20.5 % Normal 14.0-50.0 [facility] Comment on above: Order Comment: Order Added by Discern Expert. Performed By: #### 2 012410, 73212927, 4152860, 8386956, 94774413, 27912376, 728255817, 7361151, 0922271, 49950592, 9519063, 1682121, 813673405, 44803158, 5985938, 5943051, 7174256, 5543377 ####[facility] [address] [place] [address] Lymphocytes/Leukocyte s Auto (Bld) [Pure # fraction] 2.1 E9/L Normal 1.0-4.0 [facility] Comment on above: Order Comment: Order Added by Ilana Expert. Performed By: #### 2 632372, 17004666, 4871079, 3452725, 32119255, 58702467, 917085368, 5803244, 3370197, 11865989, 6060560, 4010981, 331942416, 20055982, 3046925, 3374003, 9864042, 3604262 ####[facility] [address] [place] [address] Monocytes/100 WBC (Bld) 7.6 % Normal 4.0-14.0 [facility] Comment on above: Order Comment: Order Added by Discern Expert. Performed By: #### 2 485338, 47701678, 7613947, 9913051, 04719383, 53410537, 475618417, 1908625, 4287921, 77754366, 6382365, 9015999, 538853139, 74014524, 8117564, 5522481, 2937032, 7613967 ####[facility] [address] [place] [address] Monocytes/Leukocytes Auto (Bld) [Pure # fraction] 0.8 E9/L Normal 0.2-1.0 [facility] Comment on above: Order Comment: Order Added by Discern Expert. Performed By: #### 2 982317, 37766913, 7596997, 8981921, 68386032, 65933581, 614838837, 8371024, 6016677, 28715686, 0888235, 9712617, 723408245, 62409527, 0253413, 9089278, 0637410, 7467813 ####[facility] [address] [place] [address] Neutrophils/100 WBC (Bld) 66.7 % Normal 36.0-75.0 [facility] Comment on above: Order Comment: Order Added by Discern Expert. Performed By: #### 2 758979, 37408432, 7231785, 0623930, 32745713, 73235036, 190123521, 4831434, 8675127, 85615356, 5372539, 8469047, 640078473, 64794650, 2141110, 5653160, 8036607, 0715277 ####[address] [place] [address] Neutrophils/Leukocyte s Auto (Bld) [Pure # fraction] 6.8 E9/L Normal 2.0-7.5 [facility] Comment on above: Order Comment: Order Added by Discern Expert. Performed By: #### 2 832077, 62390612, 4672936, 7883474, 21329856, 37791351, 474865014, 7395397, 8204486, 80661460, 1489870, 7067704, 722077188, 71942121, 2156109, 1713848, 5812954, 6598247 ####[address] [place] [address] CBC w/ Auto Diffon 3 Erythrocyte distribution width (RBC) [Ratio] 16.0 % High 10.9-14.2 [facility] Comment on above: Performed By: #### 2 112156, 78247616, 2417230, 2414649, 28633454, 58833738, 090915701, 4129802, 0706849, 89691225, 9767938, 9911150, 526997757, 31759808, 6255790, 8460719, 0784552, 8974920 ####[facility] [address] [place] [address] Hematocrit (Bld) [Volume fraction] 37.1 % Normal 34.0-46.0 [facility] Comment on above: Performed By: #### 2 483178, 63809586, 2309421, 7227342, 07677389, 06039040, 265253254, 5175502, 9680219, 65903212, 3144962, 2783043, 819918425, 40540289, 1574585, 8196038, 1760572, 3423267 ####[address] [place] [address] Hemoglobin (Bld) [Mass/Vol] 12.6 g/dL Normal 12.0-16.0 [facility] Comment on above: Performed By: #### 2 044359, 19642900, 9600308, 1065095, 37809238, 22722153, 285439430, 5421263, 2467788, 33163004, 0667358, 8721798, 904605613, 32211254, 5633968, 6291475, 3332103, 0814143 ####[address] [place] [address] MCH (RBC) [Entitic mass] 31.2 pg Normal 27.0-34.0 [facility] Comment on above: Performed By: #### 2 550090, 12382720, 0206936, 4008686, 19567472, 07718697, 190531707, 3203962, 8379873, 08972895, 8770974, 4909310, 884955243, 85450879, 3415712, 3719167, 4477734, 5702303 ####[address] [place] [address] MCHC (RBC) [Mass/Vol] 33.9 g/dL Normal 31.4-36.0 [facility] Comment on above: Performed By: #### 2 497092, 21251155, 1305199, 8871847, 95306884, 64542092, 068466146, 3248091, 8213855, 28408095, 7813090, 5566658, 169047207, 41078503, 0880656, 7850573, 8897718, 3906481 ####[facility] [address] [place] [address] MCV (RBC) [Entitic vol] 92.0 fL Normal 80.0-100.0 [facility] Comment on above: Performed By: #### 2 303643, 83344636, 1955309, 6684182, 17224529, 96319449, 118766133, 9489519, 3737948, 12293848, 4453000, 9652808, 179608705, 97424490, 0760015, 1461355, 7464173, 1590630 ####[facility] [address] [place] [address] Platelet mean volume (Bld) [Entitic vol] 9.8 fL Normal 6.4-10.8 [facility] Comment on above: Performed By: #### 2 460556, 60582604, 0128252, 8653947, 38263280, 42939674, 725583018, 3710006, 9299477, 08232561, 8645255, 2012472, 044583923, 97977496, 2466425, 7649152, 0834123, 9813465 ####[address] [place] [address] Platelets (Bld) [#/Vol] 369.0 E9/L Normal 150.0-500.0 [facility] Comment on above: Performed By: #### 2 263497, 76889154, 2471166, 5397891, 09772285, 48854970, 180317993, 7823000, 9747194, 73761381, 1299854, 4750364, 790249491, 26378409, 8353940, 9104976, 4109821, 1537430 ####[facility] [address] [place] [address] RBC (Bld) [#/Vol] 4.0 E12/L Low 4.3-5.9 [facility] Comment on above: Performed By: #### 2 467641, 76651859, 8020892, 0356159, 22702255, 89045034, 615807928, 0923335, 2542354, 08942541, 1329980, 6776072, 272683142, 46137677, 0526576, 2143471, 7325123, 2800876 ####[facility] [address] [place] [address] WBC corrected for nucl RBC Auto (Bld) [#/Vol] 10.1 E9/L Normal 4.0-11.0 [facility] Comment on above: Performed By: #### 2 491301, 37309116, 3832102, 0108776, 27503448, 93103976, 246569698, 7905733, 0662305, 01203633, 7364391, 5892766, 764316688, 90314097, 0332143, 0808725, 3213758, 7771708 ####[facility] [address] [place] [address] CHEMISTRYOrdered By: SYSTEM SYSTEM on 03-19-2023 25-hydroxyvitamin [...] (Bld) [Mass fraction] 5.8 % Normal <=5.9% [facility] ChemAutoSS CMPon 03-19-2023 Albumin [Mass/Vol] 4.0 g/dL Normal 3.3-5.0 [facility] Comment on above: Performed By: #### 2 552636, 95710157, 2943084, 8710269, 34879572, 36813130, 502996907, 9092669, 3269436, 70619947, 2847347, 7054169, 218641185, 10962659, 0751321, 0592572, 8900210, 5421364 ####[facility] [address] [place] [address] Albumin/Globulin (S) [Mass conc ratio] 1.2 Normal 1.1-2.2 [facility] Comment on above: Performed By: #### 2 386336, 35918115, 6042335, 9374384, 10042580, 57657801, 439419603, 1516304, 1145772, 82902102, 3519478, 8631193, 599194574, 01851588, 3024982, 5645731, 5428006, 7748174 ####[address] [place] [address] ALP [Catalytic activity/Vol] 61 Int._Unit/L Normal 21-98 [facility] Comment on above: Performed By: #### 2 084653, 96797616, 1944431, 0769351, 51137515, 57049738, 912455837, 8938945, 6009471, 54380650, 4727676, 2952780, 525665436, 17953088, 3888519, 0936836, 6573770, 8484592 ####[address] [address] ALT No additional P-5'-P [Catalytic activity/Vol] 17 Int._Unit/L Normal 6-46 [facility] Comment on above: Performed By: #### 2 683582, 99762276, 9765446, 1630779, 09823931, 38517646, 708298943, 5004814, 1852882, 87186166, 2352886, 1032235, 422572549, 90929550, 1334255, 7763942, 7685037, 6705762 ####[address] [address] Anion gap [Moles/Vol] 9 mmol/L Normal 6-16 [facility] Comment on above: Performed By: #### 2 207157, 40538862, 0847246, 4567849, 02181410, 86338001, 740068709, 3070700, 2426995, 99089510, 4731049, 9305786, 599689477, 32050228, 7310380, 5405323, 2057394, 9365966 ####[facility] [address] [place] [address] AST [Catalytic activity/Vol] 20 Int._Unit/L Normal 5-43 [facility] Comment on above: Performed By: #### 2 425523, 74300998, 7117146, 6675224, 68813030, 09414174, 319009136, 5043975, 3643985, 05174706, 3136159, 2250786, 412408247, 06966857, 5960667, 7948709, 2364630, 1039169 ####[facility] [address] [place] [address] Bilirubin [Mass/Vol] 0.4 mg/dL Normal 0.0-1.1 [facility] Comment on above: Performed By: #### 2 054933, 10452883, 7279460, 8943818, 77893608, 71636753, 720820832, 4933074, 0926220, 21604586, 2369129, 4413312, 432282117, 40777889, 7264990, 1439136, 0164295, 4868781 ####[facility] [address] [place] [address] Calcium [Mass/Vol] 9.2 mg/dL Normal 8.9-11.1 [facility] Comment on above: Performed By: #### 2 898786, 92046190, 8480392, 9594468, 77858552, 60971907, 362139118, 2259995, 1676599, 52024500, 0068809, 6021241, 211686392, 62725005, 1924018, 0807484, 6838795, 3677257 ####[address] [place] [address] Chloride [Moles/Vol] 113 mmol/L High 101-111 [facility] Comment on above: Performed By: #### 2 406708, 88494633, 7022914, 6752125, 92458668, 22693562, 854973816, 1575032, 6984218, 99530256, 7976277, 1678867, 996374118, 15812513, 4950211, 2229632, 9926949, 1937082 ####[facility] [address] [place] [address] CO2 [Moles/Vol] 22 mmol/L Normal 21-31 [facility] Comment on above: Performed By: #### 2 886035, 40107865, 4842411, 6164134, 17470132, 73038580, 884957183, 6046879, 3542539, 10301273, 2250858, 2644107, 668056884, 58964222, 6658579, 5045039, 6247775, 2216296 ####[facility] [address] [place] [address] Creatinine [Mass/Vol] 0.7 mg/dL Normal 0.5-1.3 [facility] Comment on above: Performed By: #### 2 392657, 94244779, 8900835, 9951828, 62490570, 31241799, 287669679, 5362133, 3683669, 43707796, 9178277, 8888820, 117025785, 56503783, 0910659, 9658170, 9966752, 5539907 ####[facility] [address] [place] [address] Globulin (S) [Mass/Vol] 3.2 g/dL Normal 1.4-4.0 [facility] Comment on above: Performed By: #### 2 868682, 97586467, 2388867, 1411462, 79175270, 09146201, 024677037, 3501704, 1233210, 08320815, 4952063, 5382832, 493201923, 27978969, 8499013, 5736902, 3591120, 8146456 ####[facility] [address] [place] [address] Glucose [Mass/Vol] 103 mg/dL Normal 55-199 [facility] Comment on above: Result Comment: If t his glucose result represents a fasting glucose, interpretation should refer to the following reference range: 55-99 mg/dL Performed By: #### 2 113936, 38534589, 6948107, 4749187, 23901203, 58614462, 769465541, 0397878, 8507433, 82834165, 4077892, 5258852, 882279791, 17793049, 3755702, 7662254, 8444046, 8042824 ####[facility] [address] [place] [address] Potassium [Moles/Vol] 3.8 mmol/L Normal 3.5-5.3 [facility] Comment on above: Performed By: #### 2 948118, 04774423, 2279391, 7864862, 91318065, 76821235, 562872128, 7440501, 9586087, 91770975, 7574578, 0267670, 330243041, 79423671, 8899407, 6857545, 2171529, 4522836 ####[facility] [address] [place] [address] Protein [Mass/Vol] 7.2 g/dL Normal 6.0-7.8 [facility] Comment on above: Performed By: #### 2 002378, 49572501, 0302279, 3203156, 63355279, 30749279, 001559585, 2529119, 2848918, 41757214, 6426807, 6544080, 826408025, 01391508, 3172288, 5074664, 6558106, 3143280 ####[facility] [address] [place] [address] Sodium [Moles/Vol] 140 mmol/L Normal 135-145 [facility] Comment on above: Performed By: #### 2 535459, 66534274, 2376529, 7367614, 97027367, 08028305, 505320590, 2587663, 8643752, 97790128, 1585836, 8383492, 628859180, 59970036, 4967374, 1529777, 0782719, 2533343 ####[facility] [address] [place] [address] Urea nitrogen [Mass/Vol] 12 mg/dL Normal 5-21 [facility] Comment on above: Performed By: #### 2 258192, 82140436, 1875830, 6199284, 82016061, 93274733, 251836974, 2595412, 6724999, 79753056, 8995583, 9659855, 908548198, 75959152, 8340385, 4371113, 2360661, 4085834 ####[facility] [address] [place] [address] Urea nitrogen/Creatinine [Mass ratio] 17 No Units Normal 10-20 [facility] Comment on above: Performed By: #### 2 209989, 89566119, 6518211, 1284850, 44467019, 87044925, 695839419, 4711046, 3104122, 07452892, 8007762, 1695844, 568415107, 38074946, 6778564, 1629314, 4940201, 6128279 ####[facility] [address] [place] [address] Consent for Treatmenton Consent for Treatment [id number]: 127 Normal [facility] Ferritinon - Ferritin [Mass/Vol] 6 ng/mL Low 11-307 [facility] Comment on above: Result Comment: NORM ALS MEN <30 YRS 16-132 ng/mL MEN >30 YRS 8-338 ng/mL WOMEN (PREMEN) 6-104 ng/mL WOMEN (POSTMEN) 12-210 ng/mL Performed By: #### 2 046829, 65581292, 3332792, 6273687, 74889459, 34348550, 058882045, 3575160, 8643803, 03354872, 4110291, 8635357, 957929104, 69299204, 6018083, 1449596, 1513220, 4139763 ####[facility] [address] [place] [address] Folateon 03-19-2023 Folate [Mass/Vol] 15.6 ng/mL Normal >=6.7 [facility] Comment on above: Performed By: #### 2 474749, 80952934, 7322501, 5786416, 04362028, 74255050, 725721423, 7739327, 2669138, 04300054, 7120163, 0729333, 179836829, 03668030, 0957525, 9745603, 6500017, 0741930 ####[facility] [address] [place] [address] Free T4on 03-19-2023 Free T4 [Mass/Vol] 0.88 ng/dL Normal 0.58-1.64 [facility] Comment on above: Performed By: #### 2 166236, 32899830, 7499609, 7340991, 01060205, 81039830, 214454594, 4174929, 8602227, 99875351, 7554047, 4287319, 010985101, 57495864, 2975960, 8871558, 4826454, 5388753 ####[facility] [address] [place] [address] HEMATOLOGYOrdered By: SYSTEM SYSTEM on 03-19-2023 Basophils/100 [...] 10.1 E9/L Normal 4.0 - 11.0 E9/L [facility] HemeAutoSS MmzK6hat 03-19-2023 HbA1c (Bld) [Mass fraction] 5.8 % Normal <=5.9 [facility] Comment on above: Performed By: #### 2 460869, 43419872, 2575330, 7847685, 00227078, 37776306, 853433365, 3508320, 9041245, 51797468, 6066318, 4524495, 638124710, 61341521, 2087512, 8931938, 1800669, 9872463 ####[facility] [address] [place] [address] Ironon 03-19-2023 Iron [Mass/Vol] 69 microgram/dL Normal 35-153 [facility] Comment on above: Performed By: #### 2 038509, 96582599, 9029447, 9959872, 51254575, 45642978, 281818680, 6455946, 4937393, 97269484, 1837249, 0350007, 344409667, 56480686, 9443054, 0318531, 5278872, 1037009 ####[facility] [address] [place] [address] Lipid Panelon 03-19-2023 Cholesterol [Mass/Vol] 167 mg/dL Normal 120-200 [facility] Comment on above: Performed By: #### 2 037743, 89102513, 7434485, 6509274, 05987540, 32292007, 266759746, 2208652, 5788342, 14026368, 8721546, 3668737, 581641801, 67432815, 9360738, 5477529, 0390077, 0446369 ####[facility] [address] [place] [address] Cholesterol in HDL [Mass/Vol] 72 mg/dL Invalid Interpretation Code [facility] Comment on above: Result Comment: HDL > or equal to 60 mg/dL: Low cardiovascular risk HDL < 40 mg/dL : High cardiovascular risk Performed By: #### 2 083905, 24861359, 3716793, 9883375, 72882798, 48963716, 244064622, 8721322, 4045295, 04819596, 4809869, 9040926, 644833526, 46101553, 7696256, 5666418, 7401299, 6946914 ####[facility] [address] [place] [address] Cholesterol in LDL [Mass/Vol] 72 mg/dL Normal <=129 [facility] Comment on above: Performed By: #### 2 656312, 60134986, 0598254, 1625240, 58565843, 82252850, 516048349, 3198920, 2505667, 46366449, 2034897, 8700625, 267353893, 55889421, 1513883, 4037114, 6790962, 9346950 ####[address] [place] [address] Cholesterol in VLDL [Mass/Vol] 14 mg/dL Normal 7-40 [facility] Comment on above: Performed By: #### 2 219612, 90162319, 7503673, 2610347, 54208423, 67151953, 991767763, 6356031, 0247924, 29230033, 8847402, 8687074, 046250468, 61075383, 8742058, 7766700, 0307106, 4985882 ####[facility] [address] [place] [address] Triglyceride [Mass/Vol] 69 mg/dL Normal <=149 [facility] Comment on above: Performed By: #### 2 512880, 49483514, 5174125, 4056435, 26541844, 44213120, 937556388, 1042876, 8269089, 39027958, 6255384, 0004514, 057404146, 70286055, 6789482, 1531292, 3986311, 8615081 ####[facility] [address] [place] [address] Magnesiumon 03-19-2023 Magnesium [Mass/Vol] 2.0 mg/dL Normal 1.3-2.4 [facility] Comment on above: Performed By: #### 2 216435, 84589469, 2239833, 4917269, 07068282, 43627948, 852944167, 5106859, 4536231, 51864415, 0583010, 2090327, 703264968, 55859639, 8703033, 2150420, 4778331, 1469587 ####[facility] [address] [place] [address] Physician Orderon 03-19-2023 Physician Order [id number] :127 Normal [facility] TIBC Calculatedon 03-19-2023 Iron binding capacity [Mass/Vol] 423 microgram/dL High 250-400 [facility] Comment on above: Performed By: #### 2 432232, 20823710, 2972511, 0784027, 79909678, 36283313, 838652303, 3244485, 8113157, 93213536, 5028924, 5161063, 017654068, 81706704, 2107549, 1085663, 0308018, 8725875 ####[facility] [address] [place] [address] Transferrin [Mass/Vol] 302 mg/dL Normal 200-370 [facility] Comment on above: Performed By: #### 2 183663, 25539297, 4190680, 7457302, 62618615, 85078665, 335018179, 5103402, 8354256, 53632720, 3691278, 2731737, 094153794, 99728667, 1966465, 6399996, 3641477, 6065185 ####[facility] [address] [place] [address] TSHon 03-19-2023 TSH Qn 0.61 m[IU]/L Normal 0.34-5.60 [facility] Comment on above: Performed By: #### 2 308106, 25317529, 2838211, 9327157, 66654037, 33097038, 659054787, 7306957, 8559432, 07502017, 7753334, 0854095, 297580100, 03607559, 1250408, 3781357, 5841416, 2840673 ####[facility] [address] [place] [address] Vit B12on 03-19-2023 Cobalamin (Vitamin B12) [Mass/Vol] 357 pg/mL Normal 50-1500 [facility] Comment on above: Performed By: #### 2 873598, 60691580, 4152519, 7687335, 22663976, 38322135, 381480002, 1273147, 5327297, 64222661, 2264154, 9691105, 256152380, 46662696, 0802675, 1647713, 9525710, 0817481 ####[facility] [address] [place] [address] Vitamin D 25 Hydroxyon 03-19 25-hydroxyvitamin D3 [Mass/Vol] 43.1 ng/mL Normal 30.0-100.0 [facility] Comment on above: Result Comment: Vit alberto D deficiency has been defined as a level of serum 25-OH vitamin D less than 20 ng/mL (1,2) by the [place] [employer] and an Endocrine Society practice guideline. The Endocrine Society further defined vitamin D insufficiency as a level between 21 and 29 ng/mL (2). 1. IOM ([place] [employer]). 2010. Dietary reference intakes for calcium and D. [place]: The National Academies Press. 2. Willard MF, Luisa NC, Nsetor MALDONADO, et al. Evaluation, treatment, and prevention of vitamin D deficiency: an Endocrine Society clinical practice guideline. JCEM. 2010; 96 (7):1911-30. Performed By: #### 2 273348, 10450059, 0179808, 4620165, 63955795, 95782451, 730748592, 3013356, 3328833, 08596252, 3902812, 7899653, 293438603, 90278876, 1589412, 4409090, 1514855, 0125976 ####[facility] [address] [place] [address] eGFRon 03-19-2023 GFR/1.73 sq M.predicted among non-blacks MDRD (S/P/Bld) [Vol rate/Area] 116 mL/min/1.73 m2 Normal >=59 [facility] Comment on above: Order Comment: Order added by Discern Expert. Result Comment: [employer] gurpreet kidney disease could be indicated at eGFR's of less than 60 mL/min/1.73m2. Kidney failure is indicated at less than 15 mL/min/1.73m2. Performed By: #### 2 167749, 01068528, 5010174, 5846420, 40184308, 65161765, 552942412, 1274815, 8839164, 35678688, 8931550, 1492105, 596589808, 19675601, 1721370, 9891174, 7580751, 7277661 ####[facility] [address] [place] [address] CHEMISTRYOrdered By: SYSTEM SYSTEM on 01-15-2023 Albumin [Mass/Vol] 3.7 g/dL Normal 3.3 - 5.0 gm/dL FT Remisol Albumin/Globulin [Mass ratio] 1.2 {ratio} Normal [...] 99 mL/min/1.73 m2 Normal >=59mL/min/1 .73 m2 [facility] Chem S Globulin (S) [Mass/Vol] 3.0 g/dL [...] hCG Ql Negative (01/15/23 11:31 AM) Normal [facility] Man Sero URINALYSISOrdered By: Destin santana on [...] PM) Normal Negative [facility] UA Auto SS [place].plasma/Lithiu m.RBC (Bld) [Mass ratio] 0-3 /HPF Normal [...] [facility] UA Auto SS Urobilinogen Qn (U) 0.5355634 {Lucila'U}/dL Normal 0.0 - 1.0 EU/dL [facility] UA Auto SS WBC Auto Ql (U) 1+ *ABN* (01/15/23 12:51 PM) Invalid Interpretation Code Negative [facility] UA Auto SS WBC LM.HPF (Urine sed) [#/Area] 0-5 /HPF Normal 0-5/HPF [facility] UA Auto SS BLOOD BANKOrdered By: Myrna Contreras on 12-05-2022 ABO/Rh Interp Negative Invalid Interpretation Code [facility] BB Subsection ABSC Gel Interp Negative (12/05/22 7:24 AM) Normal [facility] BB Subsection URINALYSISOrdered By: Kimberli Martin on [...] AM) Normal Negative [facility] UA Auto SS [place].plasma/Lithiu m.RBC (Bld) [Mass ratio] 0-3 /HPF Normal 0-3/HPF [facility] UA Auto SS Nitrite Ql (U) Negative (12/05/22 10:05 AM) Normal Negative [facility] UA Auto SS pH (U) 6.5 *NA* (12/05/22 10:05 AM) Invalid Interpretation Code 5.0 - 9.0 [facility] UA Auto SS Protein (U) [Mass/Vol] Negative (12/05/22 10:05 AM) Normal Negative [facility] UA Auto SS Specific gravity (U) [Rel density] 1.015 *NA* (12/05/22 10:05 AM) Invalid Interpretation Code 1.005 - 1.030 [facility] UA Auto SS UA Spec Desc Catheter (12/05/22 10:05 AM) Normal [facility] UA Auto SS Urobilinogen Qn (U) 1.3301001 {Lucila'U}/dL Normal 0.0 - 1.0 EU/dL [facility] Auto SS WBC Auto Ql (U) Negative (12/05/22 10:05 AM) Normal Negative [facility] UA Auto SS WBC LM.HPF (Urine sed) [#/Area] 0-5 /HPF Normal 0-5/HPF [facility] UA Auto SS CHEMISTRYOrdered By: SYSTEM SYSTEM [...] rate/Area] mL/min/1.73 m2 Normal >=59mL/min/1 .73 m2 [facility] Chem S Potassium [Moles/Vol] 3.6 mmol/L Normal [...] Office Visit ([facility] ) -------- SHAZIA CHOU ([id number]) 1990 F Date Time Provider Department 11/20/22 8:00 AM EILEEN MANZANOADFV During your visit today, we recorded the following information about you: Pulse Blood pressure Weight Height 67/minute 137/81 85.7 kg 1.702 m Last Period 10/23/22 Eileen Manzano MD 11/20/2022 10:33 AM Signed [facility] New Patient Evaluation [...] due to congenital deformity, 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 She has never seen an chairman [employer] founder. CSF protein 24, Glu 55, Pro 28, [...] due to congenital deformity, seen in the [facility] for: 1. Idiopathic [...] she agreed. She needs to follow with chairman [employer] co founder every 6 months. In some patients with intracranial hypertension, there might be a concurrent transverse sinus stenosis and transverse sinus stenting may resolve the symptoms. I will do MRV. --HTN --H depression --Headache: there are a (more content not included)... Normal [facility] CBC AUTO DIFFon 10-30-2022 BASO # 0.0 103/ul Normal 0.0-0.1 [facility] Comment on above: Performed By: #### C JENNIE PATRICK LIPA #### [facility] [address] [place] [address] Dr. Manuel Sandhu Basophils/100 WBC (Bld) 0.5 % Normal 0.2-2.0 [facility] Comment on above: Performed By: #### C JENNIE PATRICK LIPA #### [facility] [address] [place] [address] Dr. Manuel Sandhu EO # 0.1 103/ul Normal 0.0-0.7 [facility] Comment on above: Performed By: #### C JENNIE PATRICK LIPA #### [facility] [address] [place] [address] Dr. Manuel Sandhu Eosinophils/100 WBC (Bld) 1.6 % Normal 0.9-7.0 [facility] Comment on above: Performed By: #### C JENNIE PATRICK LIPA #### [facility] [address] [place] [address] Dr. Manuel Sandhu Erythrocyte distribution width (RBC) [Ratio] 13.8 % Normal 11.0-15.0 [facility] Comment on above: Performed By: #### C JENNIE PATRICK LIPA #### [facility] [address] [place] [address] Dr. Manuel Sandhu Hematocrit (Bld) [Volume fraction] 38.7 % Normal 36.0-48.0 [facility] Comment on above: Performed By: #### C JENNIE PATRICK LIPA #### [facility] [address] [place] [address] Dr. Manuel Sandhu Hemoglobin (Bld) [Mass/Vol] 12.9 g/dL Normal 12.0-16.0 [facility] Comment on above: Performed By: #### C MP, JENNIE, LIPA #### [facility] [address] [address] [address] Manuel Sandhu IG # 0.03 10e3/ul Normal 0.00-0.03 [facility] Comment on above: Performed By: #### C MP, JENNIE, LIPA #### [facility] [address] [address] [address] Manuel Sandhu IG % 0.4 % Normal 0.0-0.5 [facility] Comment on above: Performed By: #### C MP, JENNIE, LIPA #### [facility] [address] [address] [address] Manuel Sandhu LYMPH # 2.1 103/ul Normal 1.2-3.8 [facility] Comment on above: Performed By: #### C MP, JENNIE, LIPA #### [facility] [address] [place] [address] Dr. Manuel Sandhu Lymphocytes/100 WBC (Bld) 25.1 % Normal 20.5-60.0 [facility] Comment on above: Performed By: #### C MP, JENNIE, LIPA #### [facility] [address] [address] [address] Manuel Sandhu MANUAL DIFF REQ NO Normal [facility] Comment on above: Performed By: #### C MP, JENNIE, LIPA #### [facility] [address] [address] [address] Manuel Sandhu MCH (RBC) [Entitic mass] 32.0 pg Normal 26.7-34.0 [facility] Comment on above: Performed By: #### C MP, JENNIE, LIPA #### [facility] [address] [address] [address] Manuel Sandhu MCHC (RBC) [Mass/Vol] 33.3 g/dL Normal 29.9-35.2 [facility] Comment on above: Performed By: #### C MP, JENNIE, LIPA #### [facility] [address] [place] [address] Dr. Manuel Sandhu MCV (RBC) [Entitic vol] 96.0 fL Normal 81.0-99.0 [facility] Comment on above: Performed By: #### C JENNIE PATRICK LIPA #### [facility] [address] [place] [address] Dr. Manuel Sandhu MONO # 0.5 103/ul Normal 0.3-0.8 [facility] Comment on above: Performed By: #### C JENNIE PATRICK LIPA #### [facility] [address] [place] [address] Dr. Manuel Sandhu Monocytes/100 WBC (Bld) 5.7 % Normal 1.7-12.0 [facility] Comment on above: Performed By: #### C JENNIE PATRICK LIPA #### [facility] [address] [place] [address] Dr. Manuel Sandhu NEUT # 5.6 103/ul Normal 1.4-6.5 [facility] Comment on above: Performed By: #### C JENNIE PATRICK LIPA #### [facility] [address] [place] [address] Dr. Manuel Sandhu Neutrophils/100 WBC (Bld) 66.7 % Normal 43.0-75.0 [facility] Comment on above: Performed By: #### C JENNIE PATRICK LIPA #### [facility] [address] [place] [address] Dr. Manuel Sandhu Platelet mean volume (Bld) [Entitic vol] 10.9 fL Normal 9.5-13.5 [facility] Comment on above: Performed By: #### C JENNIE PATRICK, LIPA #### [facility] [address] [place] [address] Dr. Manuel Sandhu PLT 310 103/ul Normal 150-450 [facility] Comment on above: Performed By: #### C JENNIE PATRICK, LIPA #### [facility] [facility] [address] [place] [address] Dr. Manuel Sandhu RBC 4.03 106/ul Critically low 4.20-5.40 [facility] Comment on above: Performed By: #### C JENNIE PATRICK, LIPA #### [facility] [address] [address] [address] Manuel Sandhu WBC 8.4 103/ul Normal 4.0-11.0 [facility] Comment on above: Performed By: #### C MP, JENNIE, LIPA #### [facility] [address] [address] [address] Manuel Sandhu ER URINE PROFILEon 3 Bilirubin Ql (U) Negative Normal NEGATIVE The [facility] Comment on above: Performed By: #### U MICRO, ERUR #### [facility] [address] [address] [address] Manuel Sandhu Clarity (U) CLEAR Normal CLEAR [facility] Comment on above: Performed By: #### U MICRO, ERUR #### [facility] [address] [place] [address] Dr. Manuel Sandhu Color (U) LT. YELLOW Normal YELLOW [facility] Comment on above: Performed By: #### U MICRO, ERUR #### [facility] [address] [address] [address] Manuel Sandhu ERUAHD A micrscopic examina tion will be performed if indicated. Normal [facility] Comment on above: Performed By: #### U MICRO, ERUR #### [facility] [address] [address] [address] Manuel Sandhu Glucose Ql (U) Negative Normal NEGATIVE The [facility] Comment on above: Performed By: #### U MICRO, ERUR #### [facility] [address] [address] [address] Manuel Sandhu Hemoglobin Ql (U) LARGE Abnormal NEGATIVE The [facility] Comment on above: Performed By: #### U MICRO, ERUR #### [facility] [address] [address] [address] Manuel Sandhu Ketones Ql (U) Negative Normal NEGATIVE [facility] Comment on above: Performed By: #### U MICRO, ERUR #### [facility] [address] [place] [address] Dr. Manuel Sandhu LEUKOCYTES TRACE Abnormal NEGATIVE [facility] Comment on above: Performed By: #### U MICRO, ERUR #### [facility] [address] [place] [address] Dr. Manuel Sandhu Nitrite Ql (U) Negative Normal NEGATIVE [facility] Comment on above: Performed By: #### U MICRO, ERUR #### [facility] [address] [place] [address] Dr. Manuel Sandhu pH (U) 6.5 [pH] Normal 5-9 [facility] Comment on above: Performed By: #### U MICRO, ERUR #### [facility] [address] [place] [address] Dr. Manuel Sandhu SPEC GRAVITY <=1.005 Abnormal 1.005-<=1.02 5 [facility] Comment on above: Performed By: #### U MICRO, ERUR #### [facility] [address] [place] [address] Dr. Manuel Sandhu UA PROTEIN Negative Normal NEGATIVE/ TRACE [facility] Comment on above: Performed By: #### U MICRO, ERUR #### [facility] [address] [place] [address] Dr. Manuel Sandhu UR MICRO IND INDICATED Normal [facility] Comment on above: Performed By: #### U MICRO, ERUR #### [facility] [address] [place] [address] Dr. Manuel Sandhu Urobilinogen Qn (U) 0.2 {Lucila'U}/dL Normal 0.2 - 1. 0 [facility] Comment on above: Performed By: #### U MICRO, ERUR #### [facility] [address] [place] [address] Dr. Manuel Sandhu PROF CHEM 8 (BAS METB)on Anion gap [Moles/Vol] 11.7 mmol/L Normal [facility] Comment on above: Performed By: #### C MP, JENNIE, LIPA #### [facility] [address] [place] [address] Dr. Manuel Sandhu Calcium [Mass/Vol] 9.1 mg/dL Normal 8.5-10.1 [facility] Comment on above: Performed By: #### C MP, JENNIE, LIPA #### [facility] [address] [address] [address] Manuel Sandhu Chloride [Moles/Vol] 105 mmol/L Normal 98-107 [facility] Comment on above: Performed By: #### C MP, JENNIE, LIPA #### [facility] [address] [address] [address] Manuel Sandhu CO2 [Moles/Vol] 26.8 mmol/L Normal 21.0-32.0 [facility] Comment on above: Performed By: #### C MP, JENNIE, LIPA #### [facility] [address] [address] [address] Manuel Sandhu Creatinine [Mass/Vol] 0.62 mg/dL Normal 0.55-1.02 [facility] Comment on above: Performed By: #### C MP, JENNIE, LIPA #### [facility] [address] [address] [address] Manuel Sandhu EGFR-AF SAMOAN >60 Normal >=60 [facility] Comment on above: Performed By: #### C MP, JENNIE, LIPA #### [facility] [address] [address] [address] Manuel Sandhu EGFR-NON AF SAMOAN >60 Normal >=60 [facility] Comment on above: Performed By: #### C MP, JENNIE, LIPA #### [facility] [address] [address] [address] Manuel Sandhu Glucose [Mass/Vol] 92 mg/dL Normal 74-106 [facility] Comment on above: Performed By: #### C MP, JENNIE, LIPA #### [facility] [address] [address] [address] Manuel Sandhu Potassium [Moles/Vol] 3.5 mmol/L Normal 3.5-5.1 [facility] Comment on above: Performed By: #### C MP, JENNIE, LIPA #### [facility] [address] [address] [address] Manuel Sandhu Sodium [Moles/Vol] 140 mmol/L Normal 136-[address] [facility] Comment on above: Performed By: #### C MP, JENNIE, LIPA #### [facility] [address] [address] [address] Manuel Sandhu Urea nitrogen [Mass/Vol] 8.0 mg/dL Normal 7.0-18.0 [facility] Comment on above: Performed By: #### C MP, JENNIE, LIPA #### [facility] [address] [address] [address] Manuel Sandhu Urea nitrogen/Creatinine [Mass ratio] 12.9 mg/mg Normal [facility] Comment on above: Performed By: #### C MP, JENNIE, LIPA #### [facility] [address] [place] [address] Dr. Manuel Sandhu URINE MICROSCOPIC ONLYon BACTERIA NONE SEEN Normal NONE SEEN [facility] Comment on above: Performed By: #### U MICRO, ERUR #### [facility] [address] [place] [address] Dr. Manuel Sandhu Bacteria identified Cx Nom (U) NOT INDICATED Normal [facility] Comment on above: Performed By: #### U MICRO, ERUR #### [facility] [address] [place] [address] Dr. Manuel Sandhu CAST NONE SEEN Normal NONE SEEN [facility] Comment on above: Performed By: #### U MICRO, ERUR #### [facility] [address] [place] [address] Dr. Manuel Sandhu Crystals LM Nom (Urine sed) NONE SEEN Normal NONE SEEN [facility] Comment on above: Performed By: #### U MICRO, ERUR #### [facility] [address] [place] [address] Dr. Manuel Sandhu Epithelial cells LM Ql (Urine sed) FEW Abnormal NONE SEEN /RARE [facility] Comment on above: Performed By: #### U MICRO, ERUR #### [facility] [address] [place] [address] Dr. Manuel Sandhu MUCOUS TRACE Abnormal NONE SEEN [facility] Comment on above: Performed By: #### U MICRO, ERUR #### [facility] [address] [place] [address] Dr. Manuel Sandhu RBC 5-10 Abnormal 0-2 [facility] Comment on above: Performed By: #### U MICRO, ERUR #### [facility] [address] [place] [address] Dr. Manuel Sandhu WBC 2-5 Abnormal NONE SEEN [facility] Comment on above: Performed By: #### U MICRO, ERUR #### [facility] [address] [address] [address] Manuel Sandhu No Panel InformationOrdered By: Dorita Niño on 08-19-2022 CSF Glucose 55 mg/dL 40-70 [facility] CSF Total Protein 24 mg/dL 15-45 [facility] CBC AUTO DIFFon 08-16-2022 BASO # 0.1 103/ul Normal 0.0-0.1 [facility] Comment on above: Performed By: #### U MICRO, ERUR #### [facility] [address] [place] [address] Dr. Manuel Sandhu Basophils/100 WBC (Bld) 0.4 % Normal 0.2-2.0 [facility] Comment on above: Performed By: #### U MICRO, ERUR #### [facility] [address] [place] [address] Dr. Manuel Sandhu EO # 0.2 103/ul Normal 0.0-0.7 [facility] Comment on above: Performed By: #### U MICRO, ERUR #### [facility] [address] [place] [address] Dr. Manuel Sandhu Eosinophils/100 WBC (Bld) 1.8 % Normal 0.9-7.0 [facility] Comment on above: Performed By: #### U MICRO, ERUR #### [facility] [address] [place] [address] Dr. Manuel Sandhu Erythrocyte distribution width (RBC) [Ratio] 13.6 % Normal 11.0-15.0 [facility] Comment on above: Performed By: #### U MICRO, ERUR #### [facility] [address] [address] [address] Manuel Sandhu Hematocrit (Bld) [Volume fraction] 35.8 % Critically low 36.0-48.0 [facility] Comment on above: Performed By: #### U MICRO, ERUR #### [facility] [address] [place] [address] Dr. Manuel Sandhu Hemoglobin (Bld) [Mass/Vol] 12.2 g/dL Normal 12.0-16.0 [facility] Comment on above: Performed By: #### U MICRO, ERUR #### [facility] [address] [place] [address] Dr. Manuel Sandhu IG # 0.05 10e3/ul Critically high 0.00-0.03 [facility] Comment on above: Performed By: #### U MICRO, ERUR #### [facility] [address] [place] [address] Dr. Manuel Sandhu IG % 0.4 % Normal 0.0-0.5 [facility] Comment on above: Performed By: #### U MICRO, ERUR #### [facility] [address] [place] [address] Dr. Manuel Sandhu LYMPH # 2.0 103/ul Normal 1.2-3.8 [facility] Comment on above: Performed By: #### U MICRO, ERUR #### [facility] [address] [place] [address] Dr. Manuel Sandhu Lymphocytes/100 WBC (Bld) 18.1 % Critically low 20.5-60.0 [facility] Comment on above: Performed By: #### U MICRO, ERUR #### [facility] [address] [place] [address] Dr. Manuel Sandhu MANUAL DIFF REQ NO Normal [facility] Comment on above: Performed By: #### U MICRO, ERUR #### [facility] [address] [place] [address] Dr. Manuel Sandhu MCH (RBC) [Entitic mass] 32.0 pg Normal 26.7-34.0 [facility] Comment on above: Performed By: #### U MICRO, ERUR #### [facility] [address] [address] [address] Manuel Sandhu MCHC (RBC) [Mass/Vol] 34.1 g/dL Normal 29.9-35.2 [facility] Comment on above: Performed By: #### U MICRO, ERUR #### [facility] [address] [address] [address] Manuel Sandhu MCV (RBC) [Entitic vol] 94.0 fL Normal 81.0-99.0 [facility] Comment on above: Performed By: #### U MICRO, ERUR #### [facility] [address] [address] [address] Manuel Sandhu MONO # 0.7 103/ul Normal 0.3-0.8 [facility] Comment on above: Performed By: #### U MICRO, ERUR #### [facility] [address] [place] [address] Dr. Manuel Sandhu Monocytes/100 WBC (Bld) 5.8 % Normal 1.7-12.0 [facility] Comment on above: Performed By: #### U MICRO, ERUR #### [facility] [address] [address] [address] Manuel Sandhu NEUT # 8.2 103/ul Critically high 1.4-6.5 [facility] Comment on above: Performed By: #### U MICRO, ERUR #### [facility] [address] [address] [address] Manuel Sandhu Neutrophils/100 WBC (Bld) 73.5 % Normal 43.0-75.0 [facility] Comment on above: Performed By: #### U MICRO, ERUR #### [facility] [address] [address] [address] Manuel Sandhu Platelet mean volume (Bld) [Entitic vol] 11.3 fL Normal 9.5-13.5 [facility] Comment on above: Performed By: #### U MICRO, ERUR #### [facility] [address] [address] [address] Manuel Sandhu PLT 284 103/ul Normal 150-450 [facility] Comment on above: Performed By: #### U MICRO, ERUR #### [facility] [address] [address] [address] Manuel Sandhu RBC 3.81 106/ul Critically low 4.20-5.40 [facility] Comment on above: Performed By: #### U MICRO, ERUR #### [facility] [address] [address] [address] Manuel Sandhu WBC 11.2 103/ul Critically high 4.0-11.0 [facility] Comment on above: Performed By: #### U MICRO, ERUR #### [facility] [address] [address] [address] Manuel Sandhu D-DIMERon 08-16-2022 D-DIMER 0.34 mg/L FEU Normal <=0.59 [facility] Comment on above: Performed By: #### U MICRO, ERUR #### [facility] [address] [address] [address] Manuel Sandhu D-DIMER COMMENTS SEE BELOW Normal [facility] Comment on above: Result Comment: Incr eases [...] Performed By: #### U MICRO, ERUR #### [facility] [address] [address] [address] Manuel Sandhu PROF CHEM 8 (BAS METB)on Anion gap [Moles/Vol] 10.6 mmol/L Normal [facility] Comment on above: Performed By: #### I NFLUAB #### [facility] [address] [address] [address] Manuel Sandhu Calcium [Mass/Vol] 9.2 mg/dL Normal 8.5-10.1 [facility] Comment on above: Performed By: #### I NFLUAB #### [facility] [address] [address] [address] Manuel Sandhu Chloride [Moles/Vol] 103 mmol/L Normal 98-107 [facility] Comment on above: Performed By: #### I NFLUAB #### [facility] [address] [address] [address] Manuel Sandhu CO2 [Moles/Vol] 28.4 mmol/L Normal 21.0-32.0 [facility] Comment on above: Performed By: #### I NFLUAB #### [facility] [address] [address] [address] Manuel Sandhu Creatinine [Mass/Vol] 0.61 mg/dL Normal 0.55-1.02 [facility] Comment on above: Performed By: #### I NFLUAB #### [facility] [address] [address] [address] Manuel Sandhu EGFR-AF SAMOAN >60 Normal >=60 [facility] Comment on above: Performed By: #### I NFLUAB #### [facility] [address] [address] [address] Manuel Sandhu EGFR-NON AF SAMOAN >60 Normal >=60 [facility] Comment on above: Performed By: #### I NFLUAB #### [facility] [address] [address] [address] Manuel Sandhu Glucose [Mass/Vol] 90 mg/dL Normal 74-[address] [facility] Comment on above: Performed By: #### I NFLUAB #### [facility] [address] [address] [address] Manuel Sandhu Potassium [Moles/Vol] 4.0 mmol/L Normal 3.5-5.1 [facility] Comment on above: Performed By: #### I NFLUAB #### [facility] [address] [address] [address] Manuel Sandhu Sodium [Moles/Vol] 138 mmol/L Normal 136-[address] [facility] Comment on above: Performed By: #### I NFLUAB #### [facility] [address] [place], [place] [address] Dr. Manuel Sandhu Urea nitrogen [Mass/Vol] 16.0 mg/dL Normal 7.0-18.0 [facility] Comment on above: Performed By: #### I NFLUAB #### [facility] [address] [place], [place] [address] Dr. Manuel Sandhu Urea nitrogen/Creatinine [Mass ratio] 26.2 mg/mg Normal [facility] Comment on above: Performed By: #### I NFLUAB #### [facility] [address] [address] [address] Manuel Sandhu XR CHEST 1 Von [...] YOLI FRANKS Date: 2022-08-16 14:16 Normal [facility] Albumin [Mass/volume] in Ser um or PlasmaOrdered By: Sangeetha Peña on 08-12-2022 Albumin [Mass/Vol] 3.2 g/dL 3.2-5.5 [facility] Basophils Auto (Bld) [#/Vol] Ordered By: Sangeetha Peña on 08-12-2022 Basophils (Bld) [#/Vol] 0.1 10*3/uL 0.0-0.2 [facility] Basophils/100 WBC Auto (Bld) Ordered By: Sangeetha Peña on 08-12-2022 Basophils/100 WBC (Bld) 0.7 % . [facility] C reactive protein [Mass/vol ume] in Serum or PlasmaOrdered By: Sangeetha Peña on 08-12-2022 CRP [Mass/Vol] 0.5 mg/dL 0.0-1.0 [facility] Creatinine and Glomerular fi ltration rate.predicted panel (S/P/Bld)Ordered By: Sangeetha Peña on 08-12-2022 Creatinine [Mass/Vol] 0.65 mg/dL 0.44-1.03 [facility] Eosinophils Auto (Bld) [#/Vo l]Ordered By: Sangeetha Peña on 08-12-2022 Eosinophils (Bld) [#/Vol] 0.4 10*3/uL 0.0-0.45 [facility] Eosinophils/100 WBC Auto (Bl d)Ordered By: Sangeetha Peña on 08-12-2022 Eosinophils/100 WBC (Bld) 5.2 % . [facility] Erythrocyte distribution wid th Auto (RBC) [Ratio]Ordered By: Sangeetha Peña on 08-12-2022 Erythrocyte distribution width (RBC) [Ratio] 14.4 % 11.9-15.3 [facility] Erythrocyte sedimentation ra te by Photometric methodOrdered By: Dorita Niño on 08-12-2022 ESR Photometric method (Bld) [Velocity] 3 mm/hr 0-19 [facility] Estimated glomerular filtrat ion rate (GFR) non- AmericanOrdered By: Sangeetha Peña on 08-12-2022 GFR/1.73 sq M.predicted among non-blacks MDRD (S/P/Bld) [Vol rate/Area] > 60 mL/Min [facility] Folate [Mass/volume] in Seru m or PlasmaOrdered By: Lizzeth Malave on 08-12-2022 Folate [Mass/Vol] 15.3 ng/mL >5.9 [facility] Comment on above: Folate reference ran ge: >5.9 ng/mlThe WHO technical consultation on folate and vitamin [id number] has determined that folate concentrations lessthan 4 ng/ml are considered deficient. Globulin Calc (S) [Mass/Vol] Ordered By: Sangeetha Peña on 08-12-2022 Globulin (S) [Mass/Vol] 2.4 g/dL [facility] HCG ( test) IA.rapi d Ql (U)Ordered By: Lizzeth Malave on 08-12-2022 HCG ( test) Ql (U) Negative [facility] Hematocrit Auto (Bld) [Volum e fraction]Ordered By: Sangeetha Peña on 08-12-2022 Hematocrit (Bld) [Volume fraction] 34.6 % 34.0-46.4 [facility] Hemoglobin [Mass/volume] in BloodOrdered By: Sangeetha Peña on 08-12-2022 Hemoglobin (Bld) [Mass/Vol] 11.3 g/dL 11.8-15.4 [facility] Laboratory - Chemistry and C hemistry - challengeOrdered By: Lizzeth Malave on 08-12-2022 Cobalamin (Vitamin B12) [Mass/Vol] 610 pg/mL 180-914 [facility] Magnesium [Mass/Vol] 1.9 mg/dL 1.6-2.6 [facility] - Hematology and Cell countsOrdered By: Sangeetah Peña on 08-12-2022 Nucleated RBC/100 WBC (Bld) [Ratio] 0.1 % 0-0.5 [facility] Leukocytes [#/volume] in Blo od by Automated countOrdered By: Sangeetha Peña on 08-12-2022 WBC (Bld) [#/Vol] 8.3 10*3/uL 4.5-11.0 [facility] Lymphocytes Auto (Bld) [#/Vo l]Ordered By: Sangeetha Peña on 08-12-2022 Lymphocytes (Bld) [#/Vol] 2.3 10*3/uL 1.00-4.8 [facility] Lymphocytes/100 WBC Auto (Bl d)Ordered By: Sangeetha Peña on 08-12-2022 Lymphocytes/100 WBC (Bld) 27.4 % . [facility] MCH Auto (RBC) [Entitic mass ]Ordered By: Sangeetha Peña on 08-12-2022 MCH (RBC) [Entitic mass] 32.0 pg 24.7-34.3 [facility] MCHC Auto (RBC) [Mass/Vol]Or dered By: Sangeetha Peña on 08-12-2022 MCHC (RBC) [Mass/Vol] 32.8 g/dL 32.0-35.0 [facility] MCV Auto (RBC) [Entitic vol] Ordered By: Sangeetha Peña on 08-12-2022 MCV (RBC) [Entitic vol] 97.7 fL 80-100 [facility] Monocytes Auto (Bld) [#/Vol] Ordered By: Sangeetha Peña on 08-12-2022 Monocytes (Bld) [#/Vol] 0.7 10*3/uL 0.0-0.8 [facility] Monocytes/100 WBC Auto (Bld) Ordered By: Sangeetha Peña on 08-12-2022 Monocytes/100 WBC (Bld) 8.7 % . [facility] Neutrophils Auto (Bld) [#/Vo l]Ordered By: Sangeetha Peña on 08-12-2022 Neutrophils (Bld) [#/Vol] 4.8 10*3/uL 1.8-7.7 [facility] Neutrophils/100 WBC Auto (Bl d)Ordered By: Sangeetha Peña on 08-12-2022 Neutrophils/100 WBC (Bld) 58.0 % . [facility] No Panel InformationOrdered By: Sangeetha Peña on 08-12-2022 Estimated GFR () > 60 mL/Min [facility] Comment on above: GFR estimated refere nce range: According to KDOQI guidelines, <60 ml/min/1.73m2 is sufficient to diagnose a patient with chronic kidney disease. Pharmacy Creatinine Clearance (Chem 140.31 [facility] Platelet mean volume Auto (B ld) [Entitic vol]Ordered By: Sangeetha Peña on 08-12-2022 Platelet mean volume (Bld) [Entitic vol] 10.2 fL 6.3-10.7 [facility] Platelets Auto (Bld) [#/Vol] Ordered By: Sangeetha Peañ on 08-12-2022 Platelets (Bld) [#/Vol] 263 10*3/uL 150-450 [facility] Protein [Mass/volume] in Ser um or PlasmaOrdered By: Sangeetha Peña on 08-12-2022 Protein [Mass/Vol] 5.6 g/dL 6.1-7.9 [facility] RBC Auto (Bld) [#/Vol]Ordere d By: Sangeetha Peña on 08-12-2022 RBC (Bld) [#/Vol] 3.54 10*6/uL 3.60-5.00 [facility] Serum or plasma alanine alberto otransferase measurement without P-5'-P (enzymatic activiOrdered By: Sangeetha Peña on 08-12-2022 ALT No additional P-5'-P [Catalytic activity/Vol] 22 U/L 10-60 [facility] Serum or plasma albumin/glob ulin mass ratioOrdered By: Sangeetha Peña on 08-12-2022 Albumin/Globulin [Mass ratio] 1.3 {ratio} [facility] Serum or plasma alkaline marquez sphatase measurement (enzymatic activity/volume)Ordered By: Sangeetha Peña on 08-12-2022 ALP [Catalytic activity/Vol] 54 U/L 32-92 [facility] Serum or plasma anion gap de terminationOrdered By: Sangeetha Peña on 08-12-2022 Anion gap [Moles/Vol] 10.6 mmol/L 6.0-15.0 [facility] Serum or plasma aspartate am inotransferase measurement (enzymatic activity/volume)Ordered By: Sangeetha Peña on 08-12-2022 AST [Catalytic activity/Vol] 20 U/L 10-42 [facility] Serum or plasma calcium audie urement (mass/volume)Ordered By: Sangeetha Peña on 08-12-2022 Calcium [Mass/Vol] 8.8 mg/dL 8.2-10.2 [facility] Serum or plasma chloride nimisha surement (moles/volume)Ordered By: Sangeetha Peña on 08-12-2022 Chloride [Moles/Vol] 105 mmol/L 95-114 [facility] Serum or plasma glucose audie urement (mass/volume)Ordered By: Sangeetha Peña on 08-12-2022 Glucose [Mass/Vol] 85 mg/dL 70-100 [facility] Comment on above: ADA recommended refe rence rangeRandom Glucose Reference Range is dependent on time and content of last meal. Glucose of more than 200 mg/dL in a nonstressed, ambulatory subject supports the diagnosis of Diabetes Mellitus. Serum or plasma potassium me asurement (moles/volume)Ordered By: Sangeetha Peña on 08-12-2022 Potassium [Moles/Vol] 4.2 mmol/L 3.5-5.1 [facility] Serum or plasma sodium measu rement (moles/volume)Ordered By: Sangeetha Peña on 08-12-2022 Sodium [Moles/Vol] 140 mmol/L 136-146 [facility] Serum or plasma total biliru bin measurement (mass/volume)Ordered By: Sangeetha Peña on 08-12-2022 Bilirubin [Mass/Vol] 0.5 mg/dL 0.3-1.2 [facility] Serum or plasma total carbon dioxide measurement (moles/volume)Ordered By: Sangeetha Peña on 08-12-2022 CO2 [Moles/Vol] 28.6 mmol/L 22.0-30.0 [facility] Serum or plasma urea nitroge n measurement (mass/volume)Ordered By: Sangeetha Peña on 08-12-2022 Urea nitrogen [Mass/Vol] 7 mg/dL 9- [facility] TSH DL <= 0.005 mIU/L QnOrde red By: Lizzeth Malave on 08-12-2022 TSH Qn 1.79 m[IU]/L 0.45-5.33 [facility] Troponin I.cardiac [Mass/vol ume] in Serum or Plasma by High sensitivity methodOrdered By: Lizzeth Malave on 08-12-2022 Troponin I.cardiac High sensitivity method [Mass/Vol] < 3 pg/mL 0-15 [facility] CBC AUTO DIFFon 08-11-2022 BASO # 0.1 103/ul Normal 0.0-0.1 [facility] Comment on above: Performed By: #### C JENNIE PATRICK LIPA #### [facility] [address] [address] [address] Manuel Sandhu Basophils/100 WBC (Bld) 0.5 % Normal 0.2-2.0 [facility] Comment on above: Performed By: #### C JENNIE PATRICK LIPA #### [facility] [address] [address] [address] Manuel Sandhu EO # 0.4 103/ul Normal 0.0-0.7 [facility] Comment on above: Performed By: #### C JENNIE PATRICK LIPA #### [facility] [address] [place] [address] Dr. Manuel Sandhu Eosinophils/100 WBC (Bld) 2.4 % Normal 0.9-7.0 [facility] Comment on above: Performed By: #### C JENNIE PATRICK LIPA #### [facility] [address] [place] [address] Dr. Manuel Sandhu Erythrocyte distribution width (RBC) [Ratio] 14.1 % Normal 11.0-15.0 [facility] Comment on above: Performed By: #### C JENNIE PATRICK LIPA #### [facility] [address] [place] [address] Dr. Manuel Sandhu Hematocrit (Bld) [Volume fraction] 39.4 % Normal 36.0-48.0 [facility] Comment on above: Performed By: #### C JENNIE PATRICK LIPA #### [facility] [address] [place] [address] Dr. Manuel Sandhu Hemoglobin (Bld) [Mass/Vol] 13.3 g/dL Normal 12.0-16.0 [facility] Comment on above: Performed By: #### C JENNIE PATRICK LIPA #### [facility] [address] [place] [address] Dr. Manuel Sandhu IG # 0.07 10e3/ul Critically high 0.00-0.03 [facility] Comment on above: Performed By: #### C JENNIE PATRICK LIPA #### [facility] [address] [place] [address] Dr. Manuel Sandhu IG % 0.5 % Normal 0.0-0.5 [facility] Comment on above: Performed By: #### C JENNIE PATRICK LIPA #### [facility] [address] [place] [address] Dr. Manuel Sandhu LYMPH # 3.6 103/ul Normal 1.2-3.8 [facility] Comment on above: Performed By: #### C MP, JENNIE, LIPA #### [facility] [address] [place] [address] Dr. Manuel Sandhu Lymphocytes/100 WBC (Bld) 23.5 % Normal 20.5-60.0 [facility] Comment on above: Performed By: #### C MP, JENNIE, LIPA #### [facility] [address] [place] [address] Dr. Manuel Sandhu MANUAL DIFF REQ NO Normal [facility] Comment on above: Performed By: #### C MP, JENNIE, LIPA #### [facility] [address] [place] [address] Dr. Manuel Sandhu MCH (RBC) [Entitic mass] 32.1 pg Normal 26.7-34.0 [facility] Comment on above: Performed By: #### C MP, JENNIE, LIPA #### [facility] [address] [place] [address] Dr. Manuel Sandhu MCHC (RBC) [Mass/Vol] 33.8 g/dL Normal 29.9-35.2 [facility] Comment on above: Performed By: #### C MP, JENNIE, LIPA #### [facility] [address] [place] [address] Dr. Manuel Sandhu MCV (RBC) [Entitic vol] 95.2 fL Normal 81.0-99.0 [facility] Comment on above: Performed By: #### C MP, JENNIE, LIPA #### [facility] [address] [place] [address] Dr. Manuel Sandhu MONO # 0.9 103/ul Critically high 0.3-0.8 [facility] Comment on above: Performed By: #### C MP, JENNIE, LIPA #### [facility] [address] [place] [address] Dr. Manuel Sandhu Monocytes/100 WBC (Bld) 5.8 % Normal 1.7-12.0 [facility] Comment on above: Performed By: #### C MP, JENNIE, LIPA #### [facility] [address] [place] [address] Dr. Manuel Sandhu NEUT # 10.3 103/ul Critically high 1.4-6.5 [facility] Comment on above: Performed By: #### C JENNIE PATRICK LIPA #### [facility] [address] [address] [address] Manuel Sandhu Neutrophils/100 WBC (Bld) 67.3 % Normal 43.0-75.0 [facility] Comment on above: Performed By: #### C JENNIE PATRICK LIPA #### [facility] [address] [address] [address] Manuel Sandhu Platelet mean volume (Bld) [Entitic vol] 11.4 fL Normal 9.5-13.5 [facility] Comment on above: Performed By: #### C JENNIE PATRICK LIPA #### [facility] [address] [address] [address] Manuel Sandhu PLT 364 103/ul Normal 150-450 [facility] Comment on above: Performed By: #### C JENNIE PATRICK LIPA #### [facility] [address] [address] [address] Manuel Sandhu RBC 4.14 106/ul Critically low 4.20-5.40 [facility] Comment on above: Performed By: #### C JENNIE PATRICK LIPA #### [facility] [address] [address] [address] Manuel Sandhu WBC 15.3 103/ul Critically high 4.0-11.0 [facility] Comment on above: Performed By: #### C JENNIE PATRICK LIPA #### [facility] [address] [address] [address] STROKE HEAD WOon 08-11-20 CT STROKE HEAD WO INDICATION: 31 years [...] YOLI MCKEON Date: 2022-08-11 15:21 Normal [facility] ER URINE PROFILEon 2 Bilirubin Ql (U) Negative Normal NEGATIVE [facility] Comment on above: Performed By: #### U MICRO, ERUR #### [facility] [address] [place] [address] Dr. Manuel Sandhu Clarity (U) CLEAR Normal CLEAR [facility] Comment on above: Performed By: #### U MICRO, ERUR #### [facility] [address] [place] [address] Dr. Manuel Sandhu Color (U) LT. YELLOW Normal YELLOW [facility] Comment on above: Performed By: #### U MICRO, ERUR #### [facility] [address] [place] [address] Dr. Manuel Sandhu ERUAHD A micrscopic examina tion will be performed if indicated. Normal [facility] Comment on above: Performed By: #### U MICRO, ERUR #### [facility] [address] [place] [address] Dr. Manuel Sandhu Glucose Ql (U) Negative Normal NEGATIVE [facility] Comment on above: Performed By: #### U MICRO, ERUR #### [facility] [address] [place] [address] Dr. Manuel Sandhu Hemoglobin Ql (U) Negative Normal NEGATIVE [facility] Comment on above: Performed By: #### U MICRO, ERUR #### [facility] [address] [place] [address] Dr. Manuel Sandhu Ketones Ql (U) Negative Normal NEGATIVE [facility] Comment on above: Performed By: #### U MICRO, ERUR #### [facility] [address] [place] [address] Dr. Manuel Sandhu LEUKOCYTES Negative Normal NEGATIVE [facility] Comment on above: Performed By: #### U MICRO, ERUR #### [facility] [address] [place] [address] Dr. Manuel Sandhu Nitrite Ql (U) Negative Normal NEGATIVE [facility] Comment on above: Performed By: #### U MICRO, ERUR #### [facility] [address] [place] [address] Dr. Manuel Sandhu pH (U) 7.0 [pH] Normal 5-9 [facility] Comment on above: Performed By: #### U MICRO, ERUR #### [facility] [address] [place] [address] Dr. Manuel Sandhu SPEC GRAVITY <=1.005 Abnormal 1.005-<=1.02 5 [facility] Comment on above: Performed By: #### U MICRO, ERUR #### [facility] [address] [place] [address] Dr. Manuel Sandhu UA PROTEIN Negative Normal NEGATIVE/ TRACE [facility] Comment on above: Performed By: #### U MICRO, ERUR #### [facility] [address] [place] [address] Dr. Manuel Sandhu UR MICRO IND NOT INDICATED Normal [facility] Comment on above: Performed By: #### U MICRO, ERUR #### [facility] [address] [place] [address] Dr. Manuel Sandhu Urobilinogen Qn (U) 0.2 {Lucila'U}/dL Normal 0.2 - 1. 0 [facility] Comment on above: Performed By: #### U MICRO, ERUR #### [facility] [address] [place] [address] Dr. Manuel Sandhu LACTATE/LACTIC ACIDon 2021 Lactate [Moles/Vol] 1.5 mmol/L Normal 0.4-1.9 [facility] Comment on above: Performed By: #### I NFLUAB #### [facility] [address] [place] [address] Dr. Manuel Sandhu LIPASEon 08-11-2022 Lipase [Catalytic activity/Vol] 84.0 U/L Normal 73.0-393.0 [facility] Comment on above: Performed By: #### C MP, JENNIE, LIPA #### [facility] [address] [place] [address] Dr. Manuel Sandhu URon 08-11-2022 , QUAL Negative Normal NEGATIVE [facility] Comment on above: Performed By: #### U MICRO, ERUR #### [facility] [address] [place] [address] Dr. Manuel Sandhu PROF 14(COMP METB)on 022 Albumin [Mass/Vol] 4.3 g/dL Normal 3.4-5.0 [facility] Comment on above: Performed By: #### C MP, JENNIE, LIPA #### [facility] [address] [place] [address] Dr. Manuel Sandhu Albumin/Globulin [Mass ratio] 1.1 {ratio} Normal [facility] Comment on above: Performed By: #### C MP, JENNIE, LIPA #### [facility] [address] [place] [address] Dr. Manuel Sandhu ALP [Catalytic activity/Vol] 87 U/L Normal 46-116 [facility] Comment on above: Performed By: #### C MP, JENNIE, LIPA #### [facility] [address] [place] [address] Dr. Manuel Sandhu ALT [Catalytic activity/Vol] 32 U/L Normal 14-59 [facility] Comment on above: Performed By: #### C MP, JENNIE, LIPA #### [facility] [address] [place] [address] Dr. Manuel Sandhu Anion gap [Moles/Vol] 12.7 mmol/L Normal [facility] Comment on above: Performed By: #### C MP, JENNIE, LIPA #### [facility] [address] [address] [address] Manuel Sandhu AST [Catalytic activity/Vol] 24 U/L Normal 15-37 [facility] Comment on above: Performed By: #### C MP, JENNIE, LIPA #### [facility] [address] [address] [address] Manuel Sandhu Bilirubin [Mass/Vol] 0.3 mg/dL Normal 0.2-1.0 [facility] Comment on above: Performed By: #### C MP, JENNIE, LIPA #### [facility] [address] [place] [address] Dr. Manuel Sandhu Calcium [Mass/Vol] 9.4 mg/dL Normal 8.5-10.1 [facility] Comment on above: Performed By: #### C MP, JENNIE, LIPA #### [facility] [address] [place] [address] Dr. Manuel Sandhu Chloride [Moles/Vol] 100 mmol/L Normal 98-107 [facility] Comment on above: Performed By: #### C MP, JENNIE, LIPA #### [facility] [address] [place] [address] Dr. Manuel Sandhu CO2 [Moles/Vol] 27.7 mmol/L Normal 21.0-32.0 [facility] Comment on above: Performed By: #### C MP, JENNIE, LIPA #### [facility] [address] [place] [address] Dr. Manuel Sandhu Creatinine [Mass/Vol] 0.71 mg/dL Normal 0.55-1.02 [facility] Comment on above: Performed By: #### C MP, JENNIE, LIPA #### [facility] [address] [place] [address] Dr. Manuel Sandhu EGFR-AF SAMOAN >60 Normal >=60 [facility] Comment on above: Performed By: #### C MP, JENNIE, LIPA #### [facility] [address] [address] [address] Manuel Sandhu EGFR-NON AF SAMOAN >60 Normal >=60 [facility] Comment on above: Performed By: #### C JENNIE PATRICK, LIPA #### [facility] [address] [address] [address] Manuel Sandhu Globulin (S) [Mass/Vol] 3.9 g/dL Normal [facility] Comment on above: Performed By: #### C CELINA JENNIE, LIPA #### [facility] [address] [address] [address] Manuel Sandhu Glucose [Mass/Vol] 109 mg/dL Critically high 74-106 [facility] Comment on above: Performed By: #### C JENNIE PATRICK, LIPA #### [facility] [address] [place] [address] Dr. Manuel Sandhu Potassium [Moles/Vol] 3.4 mmol/L Critically low 3.5-5.1 [facility] Comment on above: Performed By: #### C JENNIE PATRICK, LIPA #### [facility] [address] [place] [address] Dr. Manuel Sandhu Protein [Mass/Vol] 8.2 g/dL Normal 6.4-8.[address] [facility] Comment on above: Performed By: #### C JENNIE PATRICK, LIPA #### [facility] [address] [place] [address] Dr. Manuel Sandhu Sodium [Moles/Vol] 137 mmol/L Normal 136-[address] [facility] Comment on above: Performed By: #### C JENNIE PATRICK, LIPA #### [facility] [address] [place] [address] Dr. Manuel Sandhu Urea nitrogen [Mass/Vol] 10.0 mg/dL Normal 7.0-18.0 [facility] Comment on above: Performed By: #### C JENNIE PATRICK, LIPA #### [facility] [address] [place] [address] Dr. Manuel Sandhu Urea nitrogen/Creatinine [Mass ratio] 14.1 mg/mg Normal [facility] Comment on above: Performed By: #### C JENNIE PATRICK, LIPA #### [facility] [address] [place] [address] Dr. Manuel Sandhu PROTIMEon 08-11-2022 INR Coag (PPP) [Relative time] 0.96 {INR} Normal [facility] Comment on above: Performed By: #### I NFLUAB #### [facility] [address] [address] [address] Manuel Sandhu INR GUIDELINES SEE BELOW Normal [facility] Comment on above: Result Comment: CHUY RED INR: 2.0 - 3.0 CONDITIONS NOT LISTED BELOW 2.5 - 3.5 FOR PROSTHETIC HEART VALVE REPLACEMENT 2.5 - 3.5 RECURRENT THROMBOSIS Performed By: #### I NFLUAB #### [facility] [address] [address] [address] Manuel Sandhu PT Coag (PPP) [Time] 10.4 s Normal 9.0-11.6 [facility] Comment on above: Performed By: #### I NFLUAB #### [facility] [address] [address] [address] Manuel Sandhu PTTon 08-11-2022 aPTT Coag (Bld) [Time] 25.3 s Normal 22.3-36.2 [facility] Comment on above: Performed By: #### I NFLUAB #### [facility] [address] [address] [address] Manuel Sandhu TROPONIN, HIGH SENSITIVITYon 08-11-2022 HSTROP 4.5 pg/mL Normal 4.0-51.3 [facility] Comment on above: Result Comment: CUT- OFF POINTS HAVE BEEN ESTABLISHED BASED ON THE FOURTH UNIVERSAL DEFINITIONS OF MYOCARDIAL INFARCTION. THE UPPER REFERENCE LIMIT (URL) OF TROPONIN, DEFINED THE 99TH PERCENTILE OF cTnI DISTRIBUTION IN A REFERENCE POPULATION, HAS BEEN CONFIRMED THE DECISION THRESHOLD FOR NM DIAGNOSIS. Performed By: #### C JENNIE PATRICK LIPA #### [facility] [address] [address] [address] Manuel Sandhu TSHon 08-11-2022 TSH 1.778 uIU/mL Normal 0.358-3.740 [facility] Comment on above: Performed By: #### C JENNIE PATRICK LIPA #### [facility] [address] [address] [address] Manuel Sandhu CHEMISTRYOrdered By: SYSTEM SYSTEM [...] 0.6 mg/dL Normal 0.5 - 1.3 mg/dL [facility] Remisol GFR/1.73 sq M.predicted among blacks MDRD (S/P/Bld) [Vol rate/Area] mL/min/1.73 m2 Normal >=59mL/min/1 .73 m2 [facility] Chem S GFR/1.73 sq M.predicted among non-blacks MDRD (S/P/Bld) [Vol rate/Area] mL/min/1.73 m2 Normal >=59mL/min/1 .73 m2 [facility] Chem S Glucose [Mass/Vol] 84 mg/dL Normal 55 - 199 mg/dL [facility] Potassium [Moles/Vol] 4.2 mmol/L Normal 3.5 - 5.3 mmol/L [facility] Sodium [Moles/Vol] 137 mmol/L Normal 135 - 145 mmol/L [facility] Urea nitrogen [Mass/Vol] 13 mg/dL Normal 5 - 21 mg/dL [facility] Remisol Urea nitrogen/Creatinine [Mass ratio] 22 mg/mg High 10 - 20 [facility] Remisol CHEMISTRYOrdered By: Lab ROP User on 08-08-2022 Glucose [Mass/Vol] 98 mg/dL Normal 55 - 99 mg/dL [facility] POC Subsection POC Device SN [id number] Invalid Interpretation Code [facility] POC Subsection POC User ID [id number] Invalid Interpretation Code [facility] POC Subsection POC Username MOLLY RALPH Invalid Interpretation Code [facility] POC Subsection HEMATOLOGYOrdered By: SYSTEM SYSTEM on [...] Ag Negative (08/08/22 9:59 AM) Normal Negative [facility] Sero Influenzae B Ag Negative (08/08/22 [...] AM) Normal Negative [facility] UA Auto SS [place].plasma/Lithiu m.RBC (Bld) [Mass ratio] 0-3 /HPF Normal 0-3/HPF [facility] UA Auto SS Nitrite Ql (U) Negative (08/08/22 10:01 AM) Normal Negative [facility] UA Auto SS pH (U) 5.5 *NA* (08/08/22 10:01 AM) Invalid Interpretation Code 5.0 - 9.0 [facility] UA Auto SS Protein (U) [Mass/Vol] Negative (08/08/22 10:01 AM) Normal Negative [facility] UA Auto SS Specific gravity (U) [Rel density] <=1.005 *NA* (08/08/22 10:01 AM) Invalid Interpretation Code 1.005 - 1.030 [facility] UA Auto SS UA Spec Desc Clean Catch (08/08/22 10:01 AM) Normal [facility] UA Auto SS Urobilinogen Qn (U) 0.8075711 {Lucila'U}/dL Normal 0.0 - 1.0 EU/dL [facility] Auto SS WBC Auto Ql (U) Negative (08/08/22 10:01 AM) Normal Negative [facility] UA Auto SS WBC LM.HPF (Urine sed) [#/Area] 0-5 /HPF Normal 0-5/HPF [facility] UA Auto SS CBC AUTO DIFFon 07-19-2022 BASO # 0.1 103/ul Normal 0.0-0.1 [facility] Comment on above: Performed By: #### I NFLUAB #### [facility] [address] [place] [address] Dr. Manuel Sandhu Basophils/100 WBC (Bld) 0.4 % Normal 0.2-2.0 [facility] Comment on above: Performed By: #### I NFLUAB #### [facility] [address] [address] [address] Manuel Sandhu EO # 0.3 103/ul Normal 0.0-0.7 [facility] Comment on above: Performed By: #### I NFLUAB #### [facility] [address] [address] [address] Manuel Sandhu Eosinophils/100 WBC (Bld) 2.4 % Normal 0.9-7.0 [facility] Comment on above: Performed By: #### I NFLUAB #### [facility] [address] [place] [address] Dr. Manuel Sandhu Erythrocyte distribution width (RBC) [Ratio] 13.7 % Normal 11.0-15.0 [facility] Comment on above: Performed By: #### I NFLUAB #### [facility] [address] [place] [address] Dr. Manuel Sandhu Hematocrit (Bld) [Volume fraction] 36.5 % Normal 36.0-48.0 [facility] Comment on above: Performed By: #### I NFLUAB #### [facility] [address] [place] [address] Dr. Manuel Sandhu Hemoglobin (Bld) [Mass/Vol] 12.3 g/dL Normal 12.0-16.0 [facility] Comment on above: Performed By: #### I NFLUAB #### [facility] [address] [place] [address] Dr. Manuel Sandhu IG # 0.04 10e3/ul Critically high 0.00-0.03 [facility] Comment on above: Performed By: #### I NFLUAB #### [facility] [address] [place] [address] Dr. Manuel Sandhu IG % 0.3 % Normal 0.0-0.5 [facility] Comment on above: Performed By: #### I NFLUAB #### [facility] [address] [place] [address] Dr. Manuel Sandhu LYMPH # 2.6 103/ul Normal 1.2-3.8 [facility] Comment on above: Performed By: #### I NFLUAB #### [facility] [address] [place] [address] Dr. Manuel Sandhu Lymphocytes/100 WBC (Bld) 22.3 % Normal 20.5-60.0 [facility] Comment on above: Performed By: #### I NFLUAB #### [facility] [address] [place] [address] Dr. Manuel Sandhu MANUAL DIFF REQ NO Normal [facility] Comment on above: Performed By: #### I NFLUAB #### [facility] [address] [place] [address] Dr. Manuel Sandhu MCH (RBC) [Entitic mass] 32.5 pg Normal 26.7-34.0 [facility] Comment on above: Performed By: #### I NFLUAB #### [facility] [address] [place] [address] Dr. Manuel Sandhu MCHC (RBC) [Mass/Vol] 33.7 g/dL Normal 29.9-35.2 [facility] Comment on above: Performed By: #### I NFLUAB #### [facility] [address] [place] [address] Dr. Manuel Sandhu MCV (RBC) [Entitic vol] 96.6 fL Normal 81.0-99.0 [facility] Comment on above: Performed By: #### I NFLUAB #### [facility] [address] [place] [address] Dr. Manuel Sandhu MONO # 0.6 103/ul Normal 0.3-0.8 [facility] Comment on above: Performed By: #### I NFLUAB #### [facility] [address] [place] [address] Dr. Manuel Sandhu Monocytes/100 WBC (Bld) 5.2 % Normal 1.7-12.0 [facility] Comment on above: Performed By: #### I NFLUAB #### [facility] [address] [place] [address] Dr. aMnuel Sandhu NEUT # 8.2 103/ul Critically high 1.4-6.5 [facility] Comment on above: Performed By: #### I NFLUAB #### [facility] [address] [place] [address] Dr. Manuel Sandhu Neutrophils/100 WBC (Bld) 69.4 % Normal 43.0-75.0 [facility] Comment on above: Performed By: #### I NFLUAB #### [facility] [address] [place] [address] Dr. Manuel Sandhu Platelet mean volume (Bld) [Entitic vol] 11.2 fL Normal 9.5-13.5 [facility] Comment on above: Performed By: #### I NFLUAB #### [facility] [facility] [address] [place] [address] Dr. Manuel Sandhu PLT 308 103/ul Normal 150-450 [facility] Comment on above: Performed By: #### I NFLUAB #### [facility] [address] [address] [address] Manuel Sandhu RBC 3.78 106/ul Critically low 4.20-5.40 [facility] Comment on above: Performed By: #### I NFLUAB #### [facility] [address] [place] [address] Dr. Manuel Sandhu WBC 11.8 103/ul Critically high 4.0-11.0 [facility] Comment on above: Performed By: #### I NFLUAB #### [facility] [address] [place] [address] Dr. Manuel Sandhu D-DIMERon 07-19-2022 D-DIMER 0.29 mg/L FEU Normal <=0.59 [facility] Comment on above: Performed By: #### U MICRO, ERUR #### [facility] [address] [place] [address] Dr. Manuel Sandhu D-DIMER COMMENTS SEE BELOW Normal [facility] Comment on above: Result Comment: [...] Performed By: #### U MICRO, ERUR #### [facility] [address] [place] [address] Dr. Manuel Sandhu LIPASEon 07-19-2022 Lipase [Catalytic activity/Vol] 119.0 U/L Normal 73.0-393.0 [facility] Comment on above: Performed By: #### C JENNIE PATRICK LIPA #### [facility] [address] [place] [address] Dr. Manuel Sandhu PROF 14(COMP METB)on 022 Albumin [Mass/Vol] 3.5 g/dL Normal 3.4-5.0 [facility] Comment on above: Performed By: #### C CELINA JENNIE, LIPA #### [facility] [address] [place] [address] Dr. Manuel Sandhu Albumin/Globulin [Mass ratio] 1.0 {ratio} Normal [facility] Comment on above: Performed By: #### C JENNIE PATRICK LIPA #### [facility] [address] [place] [address] Dr. Manuel Sandhu ALP [Catalytic activity/Vol] 65 U/L Normal 46-116 [facility] Comment on above: Performed By: #### C JENNIE PATRICK LIPA #### [facility] [address] [place] [address] Dr. Manuel Sandhu ALT [Catalytic activity/Vol] 33 U/L Normal 14-59 [facility] Comment on above: Performed By: #### C JENNIE PATRICK LIPA #### [facility] [address] [place] [address] Dr. Manuel Sandhu Anion gap [Moles/Vol] 10.8 mmol/L Normal [facility] Comment on above: Performed By: #### C JENNIE PATRICK, LIPA #### [facility] [address] [place] [address] Dr. Manuel Sandhu AST [Catalytic activity/Vol] 20 U/L Normal 15-37 [facility] Comment on above: Performed By: #### C JENNIE PATRICK LIPA #### [facility] [address] [place] [address] Dr. Manuel Sandhu Bilirubin [Mass/Vol] 0.1 mg/dL Critically low 0.2-1.0 [facility] Comment on above: Performed By: #### C MP, JENNIE, LIPA #### [facility] [address] [address] [address] Manuel Sandhu Calcium [Mass/Vol] 8.7 mg/dL Normal 8.5-10.1 [facility] Comment on above: Performed By: #### C MP, JENNIE, LIPA #### [facility] [address] [address] [address] Manuel Sandhu Chloride [Moles/Vol] 105 mmol/L Normal 98-107 [facility] Comment on above: Performed By: #### C MP, JENNIE, LIPA #### [facility] [address] [address] [address] Manuel Sandhu CO2 [Moles/Vol] 24.4 mmol/L Normal 21.0-32.0 [facility] Comment on above: Performed By: #### C MP, JENNIE, LIPA #### [facility] [address] [place] [address] Dr. Manuel Sandhu Creatinine [Mass/Vol] 0.91 mg/dL Normal 0.55-1.02 [facility] Comment on above: Performed By: #### C MP, JENNIE, LIPA #### [facility] [address] [place] [address] Dr. Manuel Sandhu EGFR-AF SAMOAN >60 Normal >=60 [facility] Comment on above: Performed By: #### C MP, JENNIE, LIPA #### [facility] [address] [place] [address] Dr. Manuel Sandhu EGFR-NON AF SAMOAN >60 Normal >=60 [facility] Comment on above: Performed By: #### C MP, JENNIE, LIPA #### [facility] [address] [address] [address] Manuel Sandhu Globulin (S) [Mass/Vol] 3.4 g/dL Normal [facility] Comment on above: Performed By: #### C MP, JENNIE, LIPA #### [facility] [address] [address] [address] Manuel Sandhu Glucose [Mass/Vol] 127 mg/dL Critically high 74-106 [facility] Comment on above: Performed By: #### C JENNIE PATRICK, LIPA #### [facility] [address] [place] [address] Dr. Manuel Sandhu Potassium [Moles/Vol] 3.2 mmol/L Critically low 3.5-5.1 [facility] Comment on above: Performed By: #### C CELINA JENNIE, LIPA #### [facility] [address] [place] [address] Dr. Manuel Sandhu Protein [Mass/Vol] 6.9 g/dL Normal 6.4-8.[address] [facility] Comment on above: Performed By: #### C JENNIE PATRICK, LIPA #### [facility] [address] [place] [address] Dr. Manuel Sandhu Sodium [Moles/Vol] 137 mmol/L Normal 136-145 [facility] Comment on above: Performed By: #### C JENNIE PATRICK, LIPA #### [facility] [address] [place] [address] Dr. Manuel Sandhu Urea nitrogen [Mass/Vol] 13.0 mg/dL Normal 7.0-18.0 [facility] Comment on above: Performed By: #### C JENNIE PATRICK LIPA #### [facility] [address] [place] [address] Dr. Manuel Sandhu Urea nitrogen/Creatinine [Mass ratio] 14.3 mg/mg Normal [facility] Comment on above: Performed By: #### C JENNIE PATRICK LIPA #### [facility] [address] [place] [address] Dr. Manuel Sandhu PROTIMEon 07-19-2022 INR Coag (PPP) [Relative time] 0.97 {INR} Normal [facility] Comment on above: Performed By: #### P TT, PT #### [facility] [address] [place] [address] Dr. Manuel Sandhu INR GUIDELINES SEE BELOW Normal [facility] Comment on above: Result Comment: CHUY RED INR: 2.0 - 3.0 CONDITIONS NOT LISTED BELOW 2.5 - 3.5 FOR PROSTHETIC HEART VALVE REPLACEMENT 2.5 - 3.5 RECURRENT THROMBOSIS Performed By: #### P TT, PT #### [facility] [address] [place] [address] Dr. Manuel Sandhu PT Coag (PPP) [Time] 10.5 s Normal 9.0-11.6 [facility] Comment on above: Performed By: #### P TT, PT #### [facility] [address] [place] [address] Dr. Manuel Sandhu PTTon 07-19-2022 aPTT Coag (Bld) [Time] 26.1 s Normal 22.3-36.2 [facility] Comment on above: Performed By: #### P TT, PT #### [facility] [address] [place] [address] Dr. Manuel Sandhu TROPONIN, HIGH SENSITIVITYon 07-19-2022 HSTROP 5.4 pg/mL Normal 4.0-51.3 [facility] Comment on above: Result Comment: CUT- OFF POINTS HAVE BEEN ESTABLISHED BASED ON THE FOURTH UNIVERSAL DEFINITIONS OF MYOCARDIAL INFARCTION. THE UPPER REFERENCE LIMIT (URL) OF TROPONIN, DEFINED THE 99TH PERCENTILE OF cTnI DISTRIBUTION IN A REFERENCE POPULATION, HAS BEEN CONFIRMED THE DECISION THRESHOLD FOR NM DIAGNOSIS. Performed By: #### U MICRO, ERUR #### [facility] [address] [place] [address] Dr. Manuel Sandhu HSTROP 5.1 pg/mL Normal 4.0-51.3 [facility] Comment on above: Result Comment: CUT- OFF POINTS HAVE BEEN ESTABLISHED BASED ON THE FOURTH UNIVERSAL DEFINITIONS OF MYOCARDIAL INFARCTION. THE UPPER REFERENCE LIMIT (URL) OF TROPONIN, DEFINED THE 99TH PERCENTILE OF cTnI DISTRIBUTION IN A REFERENCE POPULATION, HAS BEEN CONFIRMED THE DECISION THRESHOLD FOR NM DIAGNOSIS. Performed By: #### C MP, JENNIE, LIPA #### [facility] [address] [place] [address] Dr. Manuel Sandhu XR CHEST 1 Von [...] LUCIANA ALLEN Date: 2022-07-19 19:28 Normal [facility] Covid-19 PCR (CVDTB)on 05-16 SARS-CoV-2 (COVID-19) RNA JOSÉ MIGUEL+probe Ql (Unsp spec) Not detected Normal NOT DETECTED [facility] Comment on above: Result Comment: When [...] for this test is supported by the Order Administrator of Health and Human Service's declaration that [...] By: #### C JENNIE PATRICK LIPA #### [facility] [address] [place] [address] Dr. Manuel Sandhu XR CHEST 2 Von [...] CAROLYNE RALPH Date: 2022-06-12 10:12 Normal [facility] Covid-19 PCR (CVDTB)on 05-15 SARS-CoV-2 (COVID-19) RNA JOSÉ MIGUEL+probe Ql (Unsp spec) Not detected Normal NOT DETECTED [facility] Comment on above: Result Comment: When [...] for this test is supported by the [place] of Health and Human Service's declaration that [...] used). Performed By: #### I NFLUAB #### [facility] [address] [place] [address] Dr. Manuel Sandhu CHEMISTRYOrdered By: SYSTEM SYSTEM [...] 10 - 20 [facility] HEMATOLOGYOrdered By: [employer] SYSTEM on 04-20-2022 Basophils/100 WBC (Bld) 0.6 [...] spec) Detected Critically abnormal NOT DETECTED [facility] Comment on above: Result Comment: This test is not yet approved or cleared by the [place] FDA. When there are no FDA-approved or cleared tests available, and other criteria are met, FDA can make tests available under an emergency access mechanism called an Emergency Use Authorization (EUA). The EUA for this test is supported by the [place] of Health and Human Service's declaration that [...] By: #### C JENNIE PATRICK LIPA #### [facility] [address] [address] [address] Manuel Sandhu GROUP A STREP CULTUREon 03-15 S. pyogenes Ag Ql (Unsp spec) Culture Observations: NEGATIVE FOR GROUP A STREPTOCOCCUS. Normal [facility] Comment on above: Performed By: #### U MICRO, ERUR #### [facility] [address] [place] [address] Dr. Manuel Sandhu INFLUENZA A AND B AGon 04-07 INFLUENZA A AG Negative Normal NEGATIVE SEE COMMENT [facility] Comment on above: Performed By: #### I NFLUAB #### [facility] [address] [place] [address] Dr. Manuel Sandhu INFLUENZA B AG Negative Normal NEGATIVE SEE COMMENT [facility] Comment on above: Performed By: #### I NFLUAB #### [facility] [address] [place] [address] Dr. Manuel Sandhu INTERNAL CONTROLS Within Normal Limits Normal Wi thin Normal Limits [facility] Comment on above: Performed By: #### I NFLUAB #### [facility] [address] [place] [address] Dr. Manuel Sandhu STREPT SCREENon 04-07-2022 STREP SCREEN A Negative Normal NEGATIVE [facility] Comment on above: Performed By: #### U MICRO, ERUR #### [facility] [address] [place] [address] Dr. Manuel Sandhu CHEMISTRYOrdered By: SYSTEM SYSTEM [...] Normal >=59mL/min/1 .73 m2 [facility] Chem S Glucose [Mass/Vol] 83 mg/dL Normal [...] [facility] UA Auto SS Color (U) Yellow (7/21/22 6:51 PM) Normal Yellow [facility] UA Auto [...] PM) Normal Negative [facility] UA Auto SS [place].plasma/Lithiu m.RBC (Bld) [Mass ratio] 0-3 /HPF Normal [...] PM) Invalid Interpretation Code 1.005 - 1.030 [facility] UA Auto SS UA Spec Desc Clean Catch (04/03/22 6:51 PM) Normal [facility] Auto SS Urobilinogen Qn (U) [id number] {Lucila'U}/dL Normal 0.0 - 1.0 EU/dL [facility] UA Auto SS WBC Auto Ql (U) Negative (04/03/22 6:51 PM) Normal Negative [facility] UA Auto SS WBC LM.HPF (Urine sed) [#/Area] 0-5 /HPF Normal 0-5/HPF [facility] UA Auto SS GROUP A STREP CULTUREon 01-13 S. pyogenes Ag Ql (Unsp spec) Culture Observations: NEGATIVE FOR GROUP A STREPTOCOCCUS. Normal [facility] Comment on above: Performed By: #### I NFLUAB #### [facility] [address] [place] [address] Dr. Manuel Sandhu STREPT SCREENon 02-08-2022 STREP SCREEN A Negative Normal NEGATIVE [facility] Comment on above: Performed By: #### I NFLUAB #### [facility] [address] [place] [address] Dr. Manuel Sandhu CBC AUTO DIFFon 01-30-2022 BASO # 0.1 103/ul Normal 0.0-0.1 [facility] Comment on above: Performed By: #### C BC #### [facility] [address] [place] [address] Dr. Manuel Sandhu Basophils/100 WBC (Bld) 0.4 % Normal 0.2-2.0 [facility] Comment on above: Performed By: #### C BC #### [facility] [address] [place] [address] Dr. Manuel Sandhu EO # 0.4 103/ul Normal 0.0-0.7 [facility] Comment on above: Performed By: #### C BC #### [facility] [address] [place] [address] Dr. Manuel Sandhu Eosinophils/100 WBC (Bld) 3.0 % Normal 0.9-7.0 [facility] Comment on above: Performed By: #### C BC #### [facility] [address] [place] [address] Dr. Manuel Sandhu Erythrocyte distribution width (RBC) [Ratio] 13.3 % Normal 11.0-15.0 [facility] Comment on above: Performed By: #### C BC #### [facility] [address] [place] [address] Dr. Manuel Sandhu Hematocrit (Bld) [Volume fraction] 36.8 % Normal 36.0-48.0 [facility] Comment on above: Performed By: #### C BC #### [facility] [address] [place] [address] Dr. Manuel Sandhu Hemoglobin (Bld) [Mass/Vol] 12.2 g/dL Normal 12.0-16.0 [facility] Comment on above: Performed By: #### C BC #### [facility] [address] [place] [address] Dr. Manuel Sandhu IG # 0.04 10e3/ul Critically high 0.00-0.03 [facility] Comment on above: Performed By: #### C BC #### [facility] [address] [place] [address] Dr. Manuel Sandhu IG % 0.3 % Normal 0.0-0.5 [facility] Comment on above: Performed By: #### C BC #### [facility] [address] [place] [address] Dr. Manuel Sandhu LYMPH # 2.8 103/ul Normal 1.2-3.8 [facility] Comment on above: Performed By: #### C BC #### [facility] [address] [place] [address] Dr. Manuel Sandhu Lymphocytes/100 WBC (Bld) 23.0 % Normal 20.5-60.0 [facility] Comment on above: Performed By: #### C BC #### [facility] [address] [place] [address] Dr. Manuel Sandhu MANUAL DIFF REQ NO Normal [facility] Comment on above: Performed By: #### C BC #### [facility] [address] [place] [address] Dr. Manuel Sandhu MCH (RBC) [Entitic mass] 32.1 pg Normal 26.7-34.0 [facility] Comment on above: Performed By: #### C BC #### [facility] [address] [place] [address] Dr. Manuel Sandhu MCHC (RBC) [Mass/Vol] 33.2 g/dL Normal 29.9-35.2 [facility] Comment on above: Performed By: #### C BC #### [facility] [address] [place] [address] Dr. Manuel Sandhu MCV (RBC) [Entitic vol] 96.8 fL Normal 81.0-99.0 [facility] Comment on above: Performed By: #### C BC #### [facility] [address] [place] [address] Dr. Manuel Sandhu MONO # 0.7 103/ul Normal 0.3-0.8 [facility] Comment on above: Performed By: #### C BC #### [facility] [address] [place] [address] Dr. Manuel Sandhu Monocytes/100 WBC (Bld) 5.6 % Normal 1.7-12.0 [facility] Comment on above: Performed By: #### C BC #### [facility] [address] [address] [address] Manuel Sandhu NEUT # 8.2 103/ul Critically high 1.4-6.5 [facility] Comment on above: Performed By: #### C BC #### [facility] [address] [place] [address] Dr. Manuel Sandhu Neutrophils/100 WBC (Bld) 67.7 % Normal 43.0-75.0 [facility] Comment on above: Performed By: #### C BC #### [facility] [address] [place] [address] Dr. Manuel Sandhu Platelet mean volume (Bld) [Entitic vol] 11.2 fL Normal 9.5-13.5 [facility] Comment on above: Performed By: #### C BC #### [facility] [address] [place] [address] Dr. Manuel Sandhu PLT 312 103/ul Normal 150-450 [facility] Comment on above: Performed By: #### C BC #### [facility] [address] [place] [address] Dr. Manuel Sandhu RBC 3.80 106/ul Critically low 4.20-5.40 [facility] Comment on above: Performed By: #### C BC #### [facility] [address] [place] [address] Dr. Manuel Sandhu WBC 12.1 103/ul Critically high 4.0-11.0 [facility] Comment on above: Performed By: #### C BC #### [facility] [address] [place] [address] Dr. Manuel Sadnhu [facility]12 SARS-CoV-2 (COVID-19) RNA JOSÉ MIGUEL+probe Ql (Unsp spec) Not detected Normal NOT DETECTED [facility] Comment on above: Result Comment: This test is not yet approved or cleared by the [place] FDA. When there are no FDA-approved or cleared tests available, and other criteria are met, FDA can make tests available under an emergency access mechanism called an Emergency Use Authorization (EUA). The EUA for this test is supported by the Order Administrator of Health and Human Service's (HHS's) declaration [...] SARS-CoV-2. Performed By: #### C VDTBH #### [facility] [address] [place] [address] Dr. Manuel Sandhu DRUG SCREEN RAPID (URINE)on 01-30-2022 AMP Negative Normal NEGATIVE [facility] Comment on above: Performed By: #### U MICRO, ERUR #### [facility] [address] [place] [address] Dr. Manuel Sandhu BAR Negative Normal NEGATIVE [facility] Comment on above: Performed By: #### U MICRO, ERUR #### [facility] [address] [address] [address] Manuel Sandhu BUP Negative Normal NEGATIVE [facility] Comment on above: Performed By: #### U MICRO, ERUR #### [facility] [address] [address] [address] Manuel Sandhu BZO Negative Normal NEGATIVE [facility] Comment on above: Performed By: #### U MICRO, ERUR #### [facility] [address] [place] [address] Dr. Manuel Sadnhu WISAM Negative Normal NEGATIVE [facility] Comment on above: Performed By: #### U MICRO, ERUR #### [facility] [address] [place] [address] Dr. Manuel Sandhu CUT-OFFS SEE BELOW Normal [facility] Comment on above: Result Comment: AMP [...] Performed By: #### U MICRO, ERUR #### [facility] [address] [place] [address] Dr. Manuel Sandhu DRUG CUT HEADER DRUG CLASS TEST SYST EM CUT-OFF CONCENTRATIONS ARE FOLLOWS: Normal [facility] Comment on above: Performed By: #### U MICRO, ERUR #### [facility] [address] [place] [address] Dr. Manuel Sandhu mAMP Negative Normal NEGATIVE [facility] Comment on above: Performed By: #### U MICRO, ERUR #### [facility] [address] [place] [address] Dr. Manuel Sandhu MTD Negative Normal NEGATIVE [facility] Comment on above: Performed By: #### U MICRO, ERUR #### [facility] [address] [address] [address] Manuel Sandhu OPI Negative Normal NEGATIVE [facility] Comment on above: Performed By: #### U MICRO, ERUR #### [facility] [address] [place] [address] Dr. Manuel Sandhu OXY Negative Normal NEGATIVE [facility] Comment on above: Performed By: #### U MICRO, ERUR #### [facility] [address] [place] [address] Dr. Manuel Sandhu PCP Negative Normal NEGATIVE [facility] Comment on above: Performed By: #### U MICRO, ERUR #### [facility] [address] [address] [address] Manuel Sandhu PPX Negative Normal NEGATIVE [facility] Comment on above: Performed By: #### U MICRO, ERUR #### [facility] [address] [address] [address] Manuel Sandhu TCA Negative Normal NEGATIVE [facility] Comment on above: Performed By: #### U MICRO, ERUR #### [facility] [address] [address] [address] Manuel Sandhu THC Negative Normal NEGATIVE [facility] Comment on above: Performed By: #### U MICRO, ERUR #### [facility] [address] [address] [address] Manuel Sandhu ER URINE PROFILEon 2 Bilirubin Ql (U) Negative Normal NEGATIVE [facility] Comment on above: Performed By: #### U MICRO, ERUR #### [facility] [address] [place] [address] Dr. Manuel Sandhu Clarity (U) CLEAR Normal CLEAR [facility] Comment on above: Performed By: #### U MICRO, ERUR #### [facility] [address] [address] [address] Manuel Sandhu Color (U) LT. YELLOW Normal YELLOW [facility] Comment on above: Performed By: #### U MICRO, ERUR #### [facility] [address] [address] [address] Manuel Sandhu ERUAHD A micrscopic examina tion will be performed if indicated. Normal [facility] Comment on above: Performed By: #### U MICRO, ERUR #### [facility] [address] [address] [address] Manuel Sandhu Glucose Ql (U) Negative Normal NEGATIVE [facility] Comment on above: Performed By: #### U MICRO, ERUR #### [facility] [address] [address] [address] Manuel Sandhu Hemoglobin Ql (U) Negative Normal NEGATIVE [facility] Comment on above: Performed By: #### U MICRO, ERUR #### [facility] [address] [address] [address] Manuel Sandhu Ketones Ql (U) Negative Normal NEGATIVE [facility] Comment on above: Performed By: #### U MICRO, ERUR #### [facility] [address] [place] [address] Dr. Manuel Sandhu LEUKOCYTES Negative Normal NEGATIVE [facility] Comment on above: Performed By: #### U MICRO, ERUR #### [facility] [address] [address] [address] Manuel Sandhu Nitrite Ql (U) Negative Normal NEGATIVE [facility] Comment on above: Performed By: #### U MICRO, ERUR #### [facility] [address] [place] [address] Dr. Manuel Sandhu pH (U) 5.5 [pH] Normal 5-9 [facility] Comment on above: Performed By: #### U MICRO, ERUR #### [facility] [address] [place] [address] Dr. Manuel Sandhu SPEC GRAVITY <=1.005 Abnormal 1.005-<=1.02 5 [facility] Comment on above: Performed By: #### U MICRO, ERUR #### [facility] [address] [place] [address] Dr. Manuel Sandhu UA PROTEIN Negative Normal NEGATIVE/ TRACE [facility] Comment on above: Performed By: #### U MICRO, ERUR #### [facility] [address] [address] [address] Manuel Sandhu UR MICRO IND NOT INDICATED Normal [facility] Comment on above: Performed By: #### U MICRO, ERUR #### [facility] [address] [place] [address] Dr. Manuel Sandhu Urobilinogen Qn (U) 0.2 {Lucila'U}/dL Normal 0.2 - 1. 0 [facility] Comment on above: Performed By: #### U MICRO, ERUR #### [facility] [address] [place] [address] Dr. Manuel Sandhu ETHANOL (BLD ALC)on 01-31-20 22 ALC NOTE NOTE: 80 mg/dl is e legal limit for a blood alcohol level Normal [facility] Comment on above: Performed By: #### I NFLUAB #### [facility] [address] [address] [address] Manuel Sandhu Ethanol [Mass/Vol] 47 mg/dL Normal [facility] Comment on above: Performed By: #### I NFLUAB #### [facility] [address] [address] [address] Manuel Sandhu PREG HCG QUALon 01-30-2022 , QUAL Negative Normal NEGATIVE [facility] Comment on above: Performed By: #### U MICRO, ERUR #### [facility] [address] [address] [address] Manuel Sandhu PROF 14(COMP METB)on 022 Albumin [Mass/Vol] 3.8 g/dL Normal 3.4-5.0 [facility] Comment on above: Performed By: #### I NFLUAB #### [facility] [address] [address] [address] Manuel Sandhu Albumin/Globulin [Mass ratio] 1.1 {ratio} Normal [facility] Comment on above: Performed By: #### I NFLUAB #### [facility] [address] [address] [address] Manuel Sandhu ALP [Catalytic activity/Vol] 88 U/L Normal 46-116 [facility] Comment on above: Performed By: #### I NFLUAB #### [facility] [address] [address] [address] Manuel Sandhu ALT [Catalytic activity/Vol] 30 U/L Normal 14-59 [facility] Comment on above: Performed By: #### I NFLUAB #### [facility] [address] [address] [address] Manuel Sandhu Anion gap [Moles/Vol] 17.3 mmol/L Normal e [facility] Comment on above: Performed By: #### I NFLUAB #### [facility] [address] [address] [address] Manuel Sandhu AST [Catalytic activity/Vol] 17 U/L Normal 15-37 [facility] Comment on above: Performed By: #### I NFLUAB #### [facility] [address] [address] [address] Manuel Sandhu Bilirubin [Mass/Vol] 0.2 mg/dL Normal 0.2-1.0 [facility] Comment on above: Performed By: #### I NFLUAB #### [facility] [address] [address] [address] Manuel Sandhu Calcium [Mass/Vol] 8.9 mg/dL Normal 8.5-10.1 [facility] Comment on above: Performed By: #### I NFLUAB #### [facility] [address] [place] [address] Dr. Manuel Sandhu Chloride [Moles/Vol] 109 mmol/L Critically high 98-107 [facility] Comment on above: Performed By: #### I NFLUAB #### [facility] [address] [address] [address] Manuel Sandhu CO2 [Moles/Vol] 20.2 mmol/L Critically low 21.0-32.0 [facility] Comment on above: Performed By: #### I NFLUAB #### [facility] [address] [place] [address] Dr. Manuel Sandhu Creatinine [Mass/Vol] 0.69 mg/dL Normal 0.55-1.02 [facility] Comment on above: Performed By: #### I NFLUAB #### [facility] [address] [address] [address] Manuel Sandhu EGFR-AF SAMOAN >60 Normal >=60 [facility] Comment on above: Performed By: #### I NFLUAB #### [facility] [address] [address] [address] Manuel Sandhu EGFR-NON AF SAMOAN >60 Normal >=60 [facility] Comment on above: Performed By: #### I NFLUAB #### [facility] [address] [address] [address] Manuel Sandhu Globulin (S) [Mass/Vol] 3.6 g/dL Normal [facility] Comment on above: Performed By: #### I NFLUAB #### [facility] [address] [place] [address] Dr. Manuel Sandhu Glucose [Mass/Vol] 79 mg/dL Normal 74-[address] [facility] Comment on above: Performed By: #### I NFLUAB #### [facility] [address] [place] [address] Dr. Manuel Sandhu Potassium [Moles/Vol] 3.5 mmol/L Normal 3.5-5.1 [facility] Comment on above: Performed By: #### I NFLUAB #### [facility] [address] [place] [address] Dr. Manuel Sandhu Protein [Mass/Vol] 7.4 g/dL Normal 6.4-8.[address] [facility] Comment on above: Performed By: #### I NFLUAB #### [facility] [address] [place] [address] Dr. Manuel Sandhu Sodium [Moles/Vol] 143 mmol/L Normal 136-[address] [facility] Comment on above: Performed By: #### I NFLUAB #### [facility] [address] [place] [address] Dr. Manuel Sandhu Urea nitrogen [Mass/Vol] 18.0 mg/dL Normal 7.0-18.0 [facility] Comment on above: Performed By: #### I NFLUAB #### [facility] [address] [place] [address] Dr. Manuel Sandhu Urea nitrogen/Creatinine [Mass ratio] 26.1 mg/mg Normal [facility] Comment on above: Performed By: #### I NFLUAB #### [facility] [address] [place] [address] Dr. Maneul Sandhu AMYLASEon 11-16-2021 Amylase [Catalytic activity/Vol] 60 U/L Normal 31-110 [facility] Comment on above: Performed By: #### C MP, JENNIE, LIPA #### [facility] [address] [place] [address] Dr. Manuel Sandhu CBC AUTO DIFFon 11-16-2021 BASO # 0.1 103/ul Normal 0.0-0.1 [facility] Comment on above: Performed By: #### C MP, JENNIE, LIPA #### [facility] [address] [place] [address] Dr. Manuel Sandhu Basophils/100 WBC (Bld) 0.5 % Normal 0.2-2.0 [facility] Comment on above: Performed By: #### C MP, JENNIE, LIPA #### [facility] [address] [place] [address] Dr. Manuel Sandhu EO # 0.3 103/ul Normal 0.0-0.7 [facility] Comment on above: Performed By: #### C MP JENNIE, LIPA #### [facility] [address] [place] [address] Dr. Manuel Sandhu Eosinophils/100 WBC (Bld) 3.1 % Normal 0.9-7.0 [facility] Comment on above: Performed By: #### C CELINA JENNIE, LIPA #### [facility] [address] [place] [address] Dr. Manuel Sandhu Erythrocyte distribution width (RBC) [Ratio] 13.4 % Normal 11.0-15.0 [facility] Comment on above: Performed By: #### C MP JENNIE, LIPA #### [facility] [address] [place] [address] Dr. Manuel Sandhu Hematocrit (Bld) [Volume fraction] 39.0 % Normal 36.0-48.0 [facility] Comment on above: Performed By: #### C MP JENNIE, LIPA #### [facility] [address] [place] [address] Dr. Manuel Sandhu Hemoglobin (Bld) [Mass/Vol] 12.8 g/dL Normal 12.0-16.0 [facility] Comment on above: Performed By: #### C MP JENNIE, LIPA #### [facility] [address] [place] [address] Dr. Manuel Sandhu IG # 0.03 10e3/ul Normal 0.00-0.03 [facility] Comment on above: Performed By: #### C JENNIE PATRICK LIPA #### [facility] [address] [place] [address] Dr. Manuel Sandhu IG % 0.3 % Normal 0.0-0.5 [facility] Comment on above: Performed By: #### C JENNIE PATRICK, LIPA #### [facility] [address] [place] [address] Dr. Manuel Sandhu LYMPH # 2.8 103/ul Normal 1.2-3.8 [facility] Comment on above: Performed By: #### C JENNIE PATRICK LIPA #### [facility] [address] [place] [address] Dr. Manuel Sandhu Lymphocytes/100 WBC (Bld) 29.9 % Normal 20.5-60.0 [facility] Comment on above: Performed By: #### C JENNIE PATRICK LIPA #### [facility] [address] [place] [address] Dr. Manuel Sandhu MANUAL DIFF REQ NO Normal [facility] Comment on above: Performed By: #### C JENNIE PATRICK LIPA #### [facility] [address] [place] [address] Dr. Manuel Sandhu MCH (RBC) [Entitic mass] 32.2 pg Normal 26.7-34.0 [facility] Comment on above: Performed By: #### C JENNIE PATRICK LIPA #### [facility] [address] [place] [address] Dr. Manuel Sandhu MCHC (RBC) [Mass/Vol] 32.8 g/dL Normal 29.9-35.2 [facility] Comment on above: Performed By: #### C JENNIE PATRICK, LIPA #### [facility] [address] [place] [address] Dr. Manuel Sandhu MCV (RBC) [Entitic vol] 98.0 fL Normal 81.0-99.0 [facility] Comment on above: Performed By: #### C MP, JENNIE, LIPA #### [facility] [address] [place] [address] Dr. Manuel Sandhu MONO # 0.7 103/ul Normal 0.3-0.8 [facility] Comment on above: Performed By: #### C MP, JENNIE, LIPA #### [facility] [address] [place] [address] Dr. Manuel Sandhu Monocytes/100 WBC (Bld) 7.7 % Normal 1.7-12.0 [facility] Comment on above: Performed By: #### C MP, JENNIE, LIPA #### [facility] [address] [place] [address] Dr. Manuel Sandhu NEUT # 5.5 103/ul Normal 1.4-6.5 [facility] Comment on above: Performed By: #### C MP, JENNIE, LIPA #### [facility] [address] [place] [address] Dr. Manuel Sandhu Neutrophils/100 WBC (Bld) 58.5 % Normal 43.0-75.0 [facility] Comment on above: Performed By: #### C MP, JENNIE, LIPA #### [facility] [address] [place] [address] Dr. Manuel Sandhu Platelet mean volume (Bld) [Entitic vol] 11.7 fL Normal 9.5-13.5 [facility] Comment on above: Performed By: #### C MP JENNIE, LIPA #### [facility] [address] [place] [address] Dr. Manuel Sandhu PLT 301 103/ul Normal 150-450 [facility] Comment on above: Performed By: #### C MP, JENNIE, LIPA #### [facility] [address] [place] [address] Dr. Manuel Sandhu RBC 3.98 106/ul Critically low 4.20-5.40 [facility] Comment on above: Performed By: #### C MP, JENNIE, LIPA #### [facility] [address] [place] [address] Dr. Manuel Sandhu WBC 9.3 103/ul Normal 4.0-11.0 [facility] Comment on above: Performed By: #### C JENNIE PATRICK LIPA #### [facility] [address] [address] [address] ABD/PELVIS WO CONon [...] HARMONY HARRELL Date: 2021-11-16 19:55 Normal [facility] ER URINE PROFILEon 2 Bilirubin Ql (U) Negative Normal NEGATIVE [facility] Comment on above: Performed By: #### C MP, JENNIE, LIPA #### [facility] [address] [place] [address] Dr. Manuel Sandhu Clarity (U) CLEAR Normal CLEAR [facility] Comment on above: Performed By: #### C MP, JENNIE, LIPA #### [facility] [address] [place] [address] Dr. Manuel Sandhu Color (U) LT. YELLOW Normal YELLOW [facility] Comment on above: Performed By: #### C MP, JENNIE, LIPA #### [facility] [address] [place] [address] Dr. Manuel Sandhu ERUAHD A micrscopic examina tion will be performed if indicated. Normal [facility] Comment on above: Performed By: #### C MP, JENNIE, LIPA #### [facility] [address] [place] [address] Dr. Manuel Sandhu Glucose Ql (U) Negative Normal NEGATIVE [facility] Comment on above: Performed By: #### C MP, JENNIE, LIPA #### [facility] [address] [place] [address] Dr. Manuel Sandhu Hemoglobin Ql (U) Negative Normal NEGATIVE [facility] Comment on above: Performed By: #### C MP, JENNIE, LIPA #### [facility] [address] [place] [address] Dr. Manuel Sandhu Ketones Ql (U) Negative Normal NEGATIVE [facility] Comment on above: Performed By: #### C MP, JENNIE, LIPA #### [facility] [address] [address] [address] Manuel Sandhu LEUKOCYTES Negative Normal NEGATIVE [facility] Comment on above: Performed By: #### C MP, JENNIE, LIPA #### [facility] [address] [address] [address] Manuel Sandhu Nitrite Ql (U) Negative Normal NEGATIVE [facility] Comment on above: Performed By: #### C MP, JENNIE, LIPA #### [facility] [address] [place] [address] Dr. Manuel Sandhu pH (U) 7.0 [pH] Normal 5-9 [facility] Comment on above: Performed By: #### C MP, JENNIE, LIPA #### [facility] [address] [place] [address] Dr. Manuel Sandhu SPEC GRAVITY <=1.005 Abnormal 1.005-<=1.02 5 [facility] Comment on above: Performed By: #### C MP, JENNIE, LIPA #### [facility] [address] [place] [address] Dr. Manuel Sandhu UA PROTEIN Negative Normal NEGATIVE/ TRACE [facility] Comment on above: Performed By: #### C MP, JENNIE, LIPA #### [facility] [address] [place] [address] Dr. Manuel Sandhu UR MICRO IND NOT INDICATED Normal [facility] Comment on above: Performed By: #### C MP, JENNIE, LIPA #### [facility] [address] [place] [address] Dr. Manuel Sandhu Urobilinogen Qn (U) 0.2 {Lucila'U}/dL Normal 0.2 - 1. 0 [facility] Comment on above: Performed By: #### C MP, JENNIE, LIPA #### [facility] [address] [place] [address] Dr. Manuel Sandhu LIPASEon 11-16-2021 Lipase [Catalytic activity/Vol] 78.0 U/L Normal 23.0-300.0 [facility] Comment on above: Performed By: #### C MP, JENNIE, LIPA #### [facility] [address] [place] [address] Dr. Manuel Sandhu URon 11-16-2021 , QUAL Negative Normal NEGATIVE [facility] Comment on above: Performed By: #### C MP, JENNIE, LIPA #### [facility] [address] [place] [address] Dr. Manuel Sandhu PROF 14(COMP METB)on 022 Albumin [Mass/Vol] 4.1 g/dL Normal 3.5-5.0 [facility] Comment on above: Performed By: #### C MP, JENNIE, LIPA #### [facility] [address] [place] [address] Dr. Manuel Sandhu Albumin/Globulin [Mass ratio] 1.1 {ratio} Normal [facility] Comment on above: Performed By: #### C MP, JENNIE, LIPA #### [facility] [address] [place] [address] Dr. Manuel Sandhu ALP [Catalytic activity/Vol] 102 U/L Normal 38-126 [facility] Comment on above: Performed By: #### C MP, JENNIE, LIPA #### [facility] [address] [place] [address] Dr. Manuel Sandhu ALT [Catalytic activity/Vol] 39 U/L Normal 9-52 [facility] Comment on above: Performed By: #### C MP, JENNIE, LIPA #### [facility] [address] [place] [address] Dr. Manuel Sandhu Anion gap [Moles/Vol] 11.5 mmol/L Normal [facility] Comment on above: Performed By: #### C MP, JENNIE, LIPA #### [facility] [address] [place] [address] Dr. Manuel Sandhu AST [Catalytic activity/Vol] 28 U/L Normal 14-36 [facility] Comment on above: Performed By: #### C MP, JENNIE, LIPA #### [facility] [address] [address] [address] Manuel Sandhu Bilirubin [Mass/Vol] 0.2 mg/dL Normal 0.2-1.3 [facility] Comment on above: Performed By: #### C MP, JENNIE, LIPA #### [facility] [address] [place] [address] Dr. Manuel Sandhu Calcium [Mass/Vol] 9.1 mg/dL Normal 8.4-10.[address] [facility] Comment on above: Performed By: #### C MP, JENNIE, LIPA #### [facility] [address] [address] [address] Manuel Sandhu Chloride [Moles/Vol] 105 mmol/L Normal 98-107 [facility] Comment on above: Performed By: #### C MP, JENNIE, LIPA #### [facility] [address] [place] [address] Dr. Manuel Sandhu CO2 [Moles/Vol] 25.0 mmol/L Normal 22.0-30.0 [facility] Comment on above: Performed By: #### C MP, JENNIE, LIPA #### [facility] [address] [place] [address] Dr. Manuel Sandhu Creatinine [Mass/Vol] 0.77 mg/dL Normal 0.52-1.04 [facility] Comment on above: Performed By: #### C MP, JENNIE, LIPA #### [facility] [address] [place] [address] Dr. Manuel Sandhu EGFR-AF SAMOAN >60 Normal >=60 [facility] Comment on above: Performed By: #### C MP, JENNIE, LIPA #### [facility] [address] [place] [address] Dr. Manuel Sandhu EGFR-NON AF SAMOAN >60 Normal >=60 [facility] Comment on above: Performed By: #### C MP, JENNIE, LIPA #### [facility] [address] [place] [address] Dr. Manuel Sandhu Globulin (S) [Mass/Vol] 3.8 g/dL Normal [facility] Comment on above: Performed By: #### C JENNIE PATRICK LIPA #### [facility] [address] [address] [address] Manuel Sandhu Glucose [Mass/Vol] 85 mg/dL Normal 74-[address] [facility] Comment on above: Performed By: #### C JENNIE PATRICK LIPA #### [facility] [address] [address] [address] Manuel Sandhu Potassium [Moles/Vol] 3.5 mmol/L Normal 3.4-5.0 [facility] Comment on above: Performed By: #### C JENNIE PATRIKC LIPA #### [facility] [address] [place] [address] Dr. Manuel Sandhu Protein [Mass/Vol] 7.9 g/dL Normal 6.1-8.[address] [facility] Comment on above: Performed By: #### C JENNIE PATRICK LIPA #### [facility] [address] [address] [address] Manuel Sandhu Sodium [Moles/Vol] 138 mmol/L Normal 137-[address] [facility] Comment on above: Performed By: #### C JENNIE PATRICK LIPA #### [facility] [address] [address] [address] Manuel Sandhu Urea nitrogen [Mass/Vol] 18.0 mg/dL Critically high 7.0-17.0 [facility] Comment on above: Performed By: #### C JENNIE PATRICK LIPA #### [facility] [address] [place] [address] Dr. Manuel Sandhu Urea nitrogen/Creatinine [Mass ratio] 23.4 mg/mg Normal [facility] Comment on above: Performed By: #### C JENNIE PATRICK LIPA #### [facility] [address] [place] [address] ABDOMEN PELVIS W [...] in the pelvis, which could be physiologic. [employer] Phone: EXAMINATION: CT OF T HE ABDOMEN [...] grade 1 anterolisthesis at L5-S1 is unchanged. [employer] Work Phone: Dario, [employer] Incoming Radiant Results From Health: [employer] [place] - 02/04/2021 4:32 PM EDT EXAMINATION: CT [...] in the pelvis, which could be physiologic. [employer] Phone: [employer] Phone: Basic Metabolic Panel w/ Ref brannon to MGOrdered By: Ruiz Joel on 02-01-2021 Anion gap [Moles/Vol] 15 mmol/L 9 - 17 mmol/L [employer] Phone: Calcium [Mass/Vol] 8.5 mg/dL Low 8.6 - 10. 4 mg/dL [employer] Phone: Chloride [Moles/Vol] 107 mmol/L 98 - 10 7 mmol/L [employer] Phone: CO2 [Moles/Vol] 16 mmol/L Low 20 - 31 mmol/L [employer] Phone: Creatinine [Mass/Vol] 0.36 mg/dL Low 0.50 - 0.90 mg/dL [employer] Phone: GFR >60 >60 mL/min [employer] Phone: GFR Non- >60 >60 mL/min [employer] Phone: GFR/1.73 sq M.predicted MDRD (S/P/Bld) [Vol rate/Area] [employer] Phone: Comment on above: Average GFR for 30-3 9 years old: 107 mL/min/1.73sq m Chronic Kidney Disease: <60 mL/min/1.73sq m Kidney failure: <15 mL/min/1.73sq m eGFR calculated using average adult body mass. Additional eGFR calculator available at: http://www.[employer]/multiple_crcl_2012.htm GFR/1.73 sq M.predicted MDRD (S/P/Bld) [Vol rate/Area] NOT REPORTED [employer] Phone: Glucose [Mass/Vol] 79 mg/dL 70 - 99 mg/dL [employer] Phone: Interpretation and review of laboratory results Abnormal [employer] Phone: Potassium [Moles/Vol] 3.7 mmol/L 3.7 - 5.3 mmol/L [employer] Phone: Sodium [Moles/Vol] 138 mmol/L 135 - 144 mmol/L [employer] Phone: Urea nitrogen (BldV) [Mass/Vol] 2 mg/dL Low 6 - 20 mg/dL [employer] Phone: Urea nitrogen/Creatinine (Bld) [Mass ratio] NOT REPORTED [employer] Phone: [employer] Phone: CBC WITH AUTO DIFFERENTIALOr dered By: Ruiz Joel on 02-01-2021 Absolute Eos # 0.[address] [facility] Work Phone: Absolute Immature Granulocyte 0.06 [employer] Phone: Absolute Lymph # 1.62 [facility] Work Phone: Absolute [place] # 1.46 High [employer]aisa [facility] Work Phone: Basophils (Bld) [#/Vol] 0.04 10*3/uL [employer] Work Phone: Basophils/100 WBC (Bld) 0 % 0 - 2 % [employer] Phone: Differential Type NOT REPORTED [employer] Phone: Eosinophils/100 WBC (Bld) 3 % 1 - 4 % [employer] Work Phone: Hematocrit (Bld) [Volume fraction] 33.7 % Low 36.3 - 47.1 % [employer] Work Phone: Hemoglobin.gastrointe stinal spec 1 Ql (Stl) 10.3 g/dL Low 11.9 - 15.1 g/dL [employer] Phone: Immature granulocytes/100 WBC (Bld) 1 % High 0 [employer] Work Phone: Interpretation and review of laboratory results Abnormal [employer] Phone: Lymphocytes/100 WBC (Bld) 14 % Low 24 - 43 % [employer] Phone: MCH (RBC) [Entitic mass] 29.9 pg 25.2 - 33.5 pg [employer] Phone: MCHC (RBC) [Mass/Vol] 30.6 g/dL 28.4 - 34.8 g/dL [employer] Phone: MCV (RBC) [Entitic vol] 98.0 fL 82.6 - 102.9 fL [employer] Phone: Monocytes/100 WBC (Bld) 13 % High 3 - 12 % [employer] Phone: NRBC Automated 0.0 0.0 per 100 WBC [employer] Phone: Platelet distribution width (Bld) [Ratio] 13.4 % 11.8 - 14.4 % [employer] Phone: Platelet Estimate NOT REPORTED [employer] Work Phone: Platelet mean volume (Bld) [Entitic vol] 11.6 fL 8.1 - 13.5 fL [employer] Work Phone: Platelets (Bld) [#/Vol] 392 10*3/uL [employer] Phone: RBC (Bld) [#/Vol] 3.44 10*6/uL Low 3.95 - 5.1 1 m/uL [employer] Work Phone: RBC (Bld) [#/Vol] NOT REPORTED [employer] Work Phone: Segmented neutrophils/100 WBC (Bld) 69 % High 36 - 65 % [employer] Work Phone: Segs Absolute 7.88 [employer] Work Phone: WBC (Bld) [#/Vol] 11.3 10*3/uL [employer] Work Phone: WBC (Bld) [#/Vol] NOT REPORTED [employer] Phone: [employer] Work Phone: Basic Metabolic Panel w/ Ref brannon to MGOrdered By: Nicolasa Le on 01-31-2021 Anion gap [Moles/Vol] 17 mmol/L 9 - 17 mmol/L [employer] [employer] Phone: Calcium [Mass/Vol] 8.7 mg/dL 8.6 - 10. 4 mg/dL Infor Work Phone: Chloride [Moles/Vol] 105 mmol/L 98 - 10 7 mmol/L [facility]for Work Phone: CO2 [Moles/Vol] 15 mmol/L Low 20 - 31 mmol/L [facility] Work Phone: Creatinine [Mass/Vol] 0.36 mg/dL Low 0.50 - 0.90 mg/dL [facility] [employer] Phone: GFR >60 >60 mL/min Uptake Phone: GFR Non- >60 >60 mL/min [employer] [employer] Phone: GFR/1.73 sq M.predicted MDRD (S/P/Bld) [Vol rate/Area] [employer] [employer] Phone: Comment on above: Average GFR for 30-3 9 years old: 107 mL/min/1.73sq m Chronic Kidney Disease: <60 mL/min/1.73sq m Kidney failure: <15 mL/min/1.73sq m eGFR calculated using average adult body mass. Additional eGFR calculator available at: http://www.[employer]/multiple_crcl_2012.htm GFR/1.73 sq M.predicted MDRD (S/P/Bld) [Vol rate/Area] NOT REPORTED [facility] Phone: Glucose [Mass/Vol] 78 mg/dL 70 - 99 mg/dL [facility] [employer] Phone: Interpretation and review of laboratory results Abnormal [employer] [employer] Phone: Potassium [Moles/Vol] 3.8 mmol/L 3.7 - 5.3 mmol/L [employer] [employer] Phone: Sodium [Moles/Vol] 137 mmol/L 135 - 144 mmol/L [employer] [employer] Phone: Urea nitrogen (BldV) [Mass/Vol] 3 mg/dL Low 6 - 20 mg/dL [facility] Phone: Urea nitrogen/Creatinine (Bld) [Mass ratio] NOT REPORTED [facility] Phone: [facility] [employer] Phone: CBC auto differentialOrdered By: Nicolasa Le on 01-31-2021 [facility] # [address] [place] Work Phone: Absolute Immature Granulocyte 0.15 Infor Work Phone: Absolute Lymph # 2.10 [facility] Work Phone: Absolute [place] # 2.25 High [facility] Work Phone: Basophils (Bld) [#/Vol] 0.00 10*3/uL Infor Work Phone: Basophils/100 WBC (Bld) 0 % 0 - 2 % Infor Work Phone: Differential Type NOT REPORTED Infor Work Phone: Eosinophils/100 WBC (Bld) 2 % 1 - 4 % Infor Work Phone: Hematocrit (Bld) [Volume fraction] 35.7 % Low 36.3 - 47.1 % Infor Work Phone: Hemoglobin.gastrointe stinal spec 1 Ql (Stl) 10.8 g/dL Low 11.9 - 15.1 g/dL Infor Work Phone: Immature granulocytes/100 WBC (Bld) 1 % High 0 Infor Work Phone: Interpretation and review of laboratory results Abnormal [facility] Phone: Lymphocytes/100 WBC (Bld) 14 % Low 24 - 43 % Infor Work Phone: MCH (RBC) [Entitic mass] 29.9 pg 25.2 - 33.5 pg Infor Work Phone: MCHC (RBC) [Mass/Vol] 30.3 g/dL 28.4 - 34.8 g/dL [facility] Phone: MCV (RBC) [Entitic vol] 98.9 fL 82.6 - 102.9 fL [facility] Phone: Monocytes/100 WBC (Bld) 15 % High 3 - 12 % Infor Work Phone: Morphology Celso (Bld) [Interp] Normal Infor Work Phone: NRBC Automated 0.0 0.0 per 100 WBC Infor Work Phone: Platelet distribution width (Bld) [Ratio] 13.5 % 11.8 - 14.4 % Infor Work Phone: Platelet Estimate NOT REPORTED Infor Work Phone: Platelet mean volume (Bld) [Entitic vol] 11.6 fL 8.1 - 13.5 fL Infor Work Phone: Platelets (Bld) [#/Vol] 375 10*3/uL Infor Work Phone: RBC (Bld) [#/Vol] 3.61 10*6/uL Low 3.95 - 5.1 1 m/uL Infor Work Phone: RBC (Bld) [#/Vol] NOT REPORTED Infor Work Phone: Segmented neutrophils/100 WBC (Bld) 68 % High 36 - 65 % Infor Work Phone: Segs Absolute 10.20 High [employer] Work Phone: WBC (Bld) [#/Vol] 15.0 10*3/uL High Infor Work Phone: WBC (Bld) [#/Vol] NOT REPORTED Infor Work Phone: Infor Work Phone: CBC Auto DifferentialOrdered By: David Nash on 01-30-2021 [facility] # 0.21 [facility] Work Phone: Absolute Immature Granulocyte 0.04 Infor Work Phone: [facility] Lymph # 1.88 [facility] Work Phone: Absolute [place] # 1.43 High [facility] Work Phone: Basophils (Bld) [#/Vol] 0.04 10*3/uL [facility] Phone: Basophils/100 WBC (Bld) 0 % 0 - 2 % [facility] Phone: Differential Type NOT REPORTED [facility] Phone: Eosinophils/100 WBC (Bld) 2 % 1 - 4 % [facility] Phone: Hematocrit (Bld) [Volume fraction] 36.2 % Low 36.3 - 47.1 % [facility] Phone: Hemoglobin.gastrointe stinal spec 1 Ql (Stl) 11.7 g/dL Low 11.9 - 15.1 g/dL [facility] Phone: Immature granulocytes/100 WBC (Bld) 0 % 0 [facility] Phone: Interpretation and review of laboratory results Abnormal [facility] Phone: Lymphocytes/100 WBC (Bld) 15 % Low 24 - 43 % [facility] Phone: MCH (RBC) [Entitic mass] 30.3 pg 25.2 - 33.5 pg [facility] Phone: MCHC (RBC) [Mass/Vol] 32.3 g/dL 28.4 - 34.8 g/dL [facility] Phone: MCV (RBC) [Entitic vol] 93.8 fL 82.6 - 102.9 fL [facility] Phone: Monocytes/100 WBC (Bld) 12 % 3 - 12 % [facility] [employer] Phone: NRBC Automated 0.0 0.0 per 100 WBC [facility] Phone: Platelet distribution width (Bld) [Ratio] 13.2 % 11.8 - 14.4 % [facility] Phone: Platelet Estimate NOT REPORTED [facility] Phone: Platelet mean volume (Bld) [Entitic vol] 11.6 fL 8.1 - 13.5 fL [facility] Phone: Platelets (Bld) [#/Vol] 414 10*3/uL [facility] Phone: RBC (Bld) [#/Vol] 3.86 10*6/uL Low 3.95 - 5.1 1 m/uL [facility] Phone: RBC (Bld) [#/Vol] NOT REPORTED [facility] Phone: Segmented neutrophils/100 WBC (Bld) 71 % High 36 - 65 % Infor Work Phone: Segs Absolute 8.75 High [employer] Work Phone: WBC (Bld) [#/Vol] 12.4 10*3/uL High Infor Work Phone: WBC (Bld) [#/Vol] NOT REPORTED [facility] Phone: [facility] Phone: CT ABDOMEN PELVIS W IV CONTR [...] anterolisthesis and marked decrease in disc height. Infor Work Phone: EXAMINATION: CT OF T HE ABDOMEN [...] height was noted at the L5-S1 disc. Infor Work Phone: Dario, pn Incoming Radiant Results From Health: [facility] [place] - 01/30/2021 12:20 PM EDT EXAMINATION: CT [...] anterolisthesis and marked decrease in disc height. [facility] Phone: [facility] [employer] Phone: Comprehensive Metabolic Pane l w/ Reflex to MGOrdered By: David Nash on 01-30-2021 Albumin [Mass/Vol] 3.6 g/dL 3.5 - 5.2 g/dL [facility] Phone: Albumin/Globulin [Mass ratio] 1.0 {ratio} [facility] Phone: ALP (Bld) [Catalytic activity/Vol] 107 U/L High 35 - 104 U/L [facility] Phone: ALT [Catalytic activity/Vol] 33 U/L 5 - 33 U/L [facility] Phone: Anion gap [Moles/Vol] 17 mmol/L 9 - 17 mmol/L [facility] Phone: AST [Catalytic activity/Vol] 26 U/L <32 [facility] Phone: Bilirubin [Mass/Vol] 0.25 mg/dL Low 0.3 - 1 .2 mg/dL [facility] Phone: Calcium [Mass/Vol] 9.5 mg/dL 8.6 - 10. 4 mg/dL [facility] Phone: Chloride [Moles/Vol] 104 mmol/L 98 - 10 7 mmol/L [facility] [employer] Phone: CO2 [Moles/Vol] 19 mmol/L Low 20 - 31 mmol/L [facility] Phone: Creatinine [Mass/Vol] 0.47 mg/dL Low 0.50 - 0.90 mg/dL [facility] Phone: Free PSA/Total PSA [Mass fraction] 7.3 g/dL 6.4 - 8.3 g/dL [facility] Phone: GFR >60 >60 mL/min Uptake Phone: GFR Non- >60 >60 mL/min [facility] Phone: Glucose [Mass/Vol] 79 mg/dL 70 - 99 mg/dL [facility] Phone: Interpretation and review of laboratory results Abnormal [facility] Phone: Potassium [Moles/Vol] 3.8 mmol/L 3.7 - 5.3 mmol/L [facility] Phone: Sodium [Moles/Vol] 140 mmol/L 135 - 144 mmol/L [facility] Phone: Urea nitrogen (BldV) [Mass/Vol] 5 mg/dL Low 6 - 20 mg/dL [facility] Phone: Urea nitrogen/Creatinine (Bld) [Mass ratio] 11 [facility] [employer] Phone: HCG Qualitative, SerumOrdere d By: Noreen Mckeon on 01-30-2021 hCG Qual Negative NEGATIVE [facility] Phone: Comment on above: Specimens with hCG l evels near the threshold of the test (25 mIU/mL) may give a negative or indeterminate result. In such cases, another test should be performed with a new specimen in 48-72 hours. If early is suspected clinically in this setting, correlation with quantitative serum b-hCG level is suggested. [employer] has confirmed the use of plasma for this test. This has not been cleared or approved by the U.S. Food and Drug Administration. The FDA has determined that such clearance is not necessary. [facility] Phone: Laboratory - Chemistry and C hemistry - challengeOrdered By: David Nash on 01-30-2021 GFR/1.73 sq M.predicted MDRD (S/P/Bld) [Vol rate/Area] [facility] Phone: Comment on above: Average GFR for 30-3 9 years old: 107 mL/min/1.73sq m Chronic Kidney Disease: <60 mL/min/1.73sq m Kidney failure: <15 mL/min/1.73sq m eGFR calculated using average adult body mass. Additional eGFR calculator available at: http://www.ZEFR.[employer]/multiple_crcl_2012.htm Stage 1: Some kidney damage normal GFR Stage 2: Mild kidney damage GFR 60-89 Stage 3: Moderate kidney damage GFR 30-59 Stage 4: Severe kidney damage GFR 15-29 Stage 5: Severe kidney damage GFR <15 ESRD - chronic treatment by dialysis or transplant Lactic AcidOrdered By: Beatriz Nash on 01-30-2021 Lactate [Moles/Vol] 0.6 mmol/L 0.5 - 2. 2 mmol/L [facility] Phone: [facility] [employer] Phone: LipaseOrdered By: David dalton on 01-30-2021 Lipase [Catalytic activity/Vol] 30 U/L 13 - 60 U/L [facility] [employer] Work Phone: Microscopic UrinalysisOrdere d By: David Nash on 01-30-2021 - [facility] [employer] Work Phone: Amorphous, UA NOT REPORTED None [facility] Work Phone: Bacteria, UA TRACE Abnormal None [facility] Work Phone: Casts UA NOT REPORTED /LPF [facility] Work Phone: Crystals, UA NOT REPORTED None /HPF [facility] Work Phone: Epithelial Cells UA 2 TO 5 [facility] Work Phone: Interpretation and review of laboratory results Abnormal [facility] [employer] Work Phone: Mucus, UA NOT REPORTED None [facility] Work Phone: Other Observations UA NOT REPORTED NOT REQ. M [facility] [employer] Work Phone: RBC, UA 0 TO 2 [facility] Work Phone: Renal Epithelial, UA NOT REPORTED 0 /HPF [facility] Work Phone: Trichomonas, UA NOT REPORTED None [facility] Work Phone: WBC, UA 2 TO 5 [facility] [employer] Work Phone: Yeast, UA NOT REPORTED None [facility] Work Phone: [facility] Work Phone: No Panel InformationOrdered By: David Nash on 01-30-2021 [facility] Work Phone: Protime-INROrdered By: Linda Mckeon on 01-30-2021 INR Coag (Bld) [Relative time] 1.1 {INR} [facility] Work Phone: Comment on above: Therapeutic Range: Moderate Anticoagulant Intensity: INR = 2.0-3.0 High Anticoagulant Intensity: INR = 2.5-3.5 PT Coag (PPP) [Time] 11.4 s [facility] Work Phone: [facility] Work Phone: Urinalysis, reflex to micros copicOrdered By: David Nash on 01-30-2021 Bilirubin Urine SMALL Abnormal NEGATIVE [facility] Work Phone: Color, UA YELLOW YELLOW [facility] [employer] Work Phone: Glucose, Ur Negative NEGATIVE [facility] Work Phone: Interpretation and review of laboratory results Abnormal [facility] Work Phone: Ketones Ql (U) 4+ Abnormal NEGATIVE [facility] Work Phone: Leukocyte esterase Test strip Ql (U) Negative NEGATIVE [facility] Work Phone: Nitrite, Urine Negative NEGATIVE [facility] Work Phone: pH, UA 5.5 [facility] [employer] Work Phone: Protein, UA Negative NEGATIVE [facility] Work Phone: Specific [place], UA <1.005 Low [facility] [employer] Work Phone: Turbidity UA CLEAR CLEAR [facility] [employer] Work Phone: Urinalysis Comments NOT REPORTED [facility] [employer] Work Phone: Urine Hgb Negative NEGATIVE [facility] [employer] Work Phone: Urobilinogen, Urine Normal Normal [facility] Work Phone: [facility] Work Phone: Basic Metabolic PanelOrdered By: Gamaliel Harris on 01-08-2021 Anion gap [Moles/Vol] 11 mmol/L 9 - 17 mmol/L [facility] [employer] Work Phone: Calcium [Mass/Vol] 9.1 mg/dL 8.6 - 10. 4 mg/dL [facility] [employer] Phone: Chloride [Moles/Vol] 105 mmol/L 98 - 10 7 mmol/L [facility] [employer] Phone: CO2 [Moles/Vol] 23 mmol/L 20 - 31 mmol/L [facility] [employer] Phone: Creatinine [Mass/Vol] 0.57 mg/dL 0.50 - 0.90 mg/dL [facility] Phone: GFR >60 >60 mL/min Uptake Phone: GFR Non- >60 >60 mL/min [facility] Phone: GFR/1.73 sq M.predicted MDRD (S/P/Bld) [Vol rate/Area] [facility] Phone: Comment on above: Average GFR for 30-3 9 years old: 107 mL/min/1.73sq m Chronic Kidney Disease: <60 mL/min/1.73sq m Kidney failure: <15 mL/min/1.73sq m eGFR calculated using average adult body mass. Additional eGFR calculator available at: http://www.[employer]/multiple_crcl_2012.htm GFR/1.73 sq M.predicted MDRD (S/P/Bld) [Vol rate/Area] NOT REPORTED [facility] Phone: Glucose [Mass/Vol] 106 mg/dL High 70 - 99 mg/dL [facility] Phone: Interpretation and review of laboratory results Abnormal [facility] Phone: Potassium [Moles/Vol] 3.7 mmol/L 3.7 - 5.3 mmol/L [facility] Phone: Sodium [Moles/Vol] 139 mmol/L 135 - 144 mmol/L [facility] [employer] Phone: Urea nitrogen (BldV) [Mass/Vol] 7 mg/dL 6 - 20 mg/dL [facility] [employer] Phone: Urea nitrogen/Creatinine (Bld) [Mass ratio] NOT REPORTED [facility] Phone: CBCOrdered By: Gamaliel castillo on 01-08-2021 Hematocrit (Bld) [Volume fraction] 38.0 % 36.3 - 47.1 % [facility] Phone: Hemoglobin.gastrointe stinal spec 1 Ql (Stl) 12.2 g/dL 11.9 - 15.1 g/dL [facility] Phone: Interpretation and review of laboratory results Abnormal [facility] Phone: MCH (RBC) [Entitic mass] 30.4 pg 25.2 - 33.5 pg [facility] Phone: MCHC (RBC) [Mass/Vol] 32.1 g/dL 28.4 - 34.8 g/dL [facility] Phone: MCV (RBC) [Entitic vol] 94.8 fL 82.6 - 102.9 fL [facility] Phone: NRBC Automated 0.0 0.0 per 100 WBC [facility] Phone: Platelet distribution width (Bld) [Ratio] 13.5 % 11.8 - 14.4 % [facility] Phone: Platelet mean volume (Bld) [Entitic vol] 11.4 fL 8.1 - 13.5 fL [facility] Phone: Platelets (Bld) [#/Vol] 304 10*3/uL [facility] Phone: RBC (Bld) [#/Vol] 4.01 10*6/uL 3.95 - 5.1 1 m/uL [facility] Phone: WBC (Bld) [#/Vol] 18.0 10*3/uL High [facility] [employer] Phone: FL ESOPHAGRAMOrdered By: Yadi Harris on 01-08-2021 No evidence of postoperative leak. [facility] Phone: EXAMINATION: SINGLE CONTRAST ESOPHAGRAM 01/08/2021 HISTORY: [...] KUB/radiographs to assess progression as clinically warranted. [facility] Phone: Dario, pn Incoming Radiant Results From Health: [facility] [place] - 01/08/2021 12:29 PM EDT EXAMINATION: SINGLE [...] warranted. IMPRESSION: No evidence of postoperative leak. [facility] Phone: Basic Metabolic PanelOrdered By: Gamaliel Harris on 01-07-2021 Anion gap [Moles/Vol] 10 mmol/L 9 - 17 mmol/L [facility] Phone: Calcium [Mass/Vol] 8.8 mg/dL 8.6 - 10. 4 mg/dL [facility] Phone: Chloride [Moles/Vol] 105 mmol/L 98 - 10 7 mmol/L [facility] Phone: CO2 [Moles/Vol] 20 mmol/L 20 - 31 mmol/L [facility] Phone: Creatinine [Mass/Vol] 0.68 mg/dL 0.50 - 0.90 mg/dL [facility] Phone: GFR >60 >60 mL/min Uptake Phone: GFR Non- >60 >60 mL/min [facility] Phone: GFR/1.73 sq M.predicted MDRD (S/P/Bld) [Vol rate/Area] [facility] Phone: Comment on above: Average GFR for 30-3 9 years old: 107 mL/min/1.73sq m Chronic Kidney Disease: <60 mL/min/1.73sq m Kidney failure: <15 mL/min/1.73sq m eGFR calculated using average adult body mass. Additional eGFR calculator available at: http://www.[employer]/multiple_crcl_2012.htm GFR/1.73 sq M.predicted MDRD (S/P/Bld) [Vol rate/Area] NOT REPORTED [facility] Phone: Glucose [Mass/Vol] 215 mg/dL High 70 - 99 mg/dL [facility] Phone: Interpretation and review of laboratory results Abnormal [facility] Phone: Potassium [Moles/Vol] 4.2 mmol/L 3.7 - 5.3 mmol/L [facility] Phone: Sodium [Moles/Vol] 135 mmol/L 135 - 144 mmol/L [facility] Phone: Urea nitrogen (BldV) [Mass/Vol] 14 mg/dL 6 - 20 mg/dL [facility] Phone: Urea nitrogen/Creatinine (Bld) [Mass ratio] NOT REPORTED [facility] Phone: CBC without DiffOrdered By: Gamaliel Harris on 01-07-2021 Hematocrit (Bld) [Volume fraction] 38.3 % 36.3 - 47.1 % [facility] Phone: Hemoglobin.gastrointe stinal spec 1 Ql (Stl) 12.5 g/dL 11.9 - 15.1 g/dL [facility] Phone: Interpretation and review of laboratory results Abnormal [facility] Phone: MCH (RBC) [Entitic mass] 30.9 pg 25.2 - 33.5 pg [facility] Phone: MCHC (RBC) [Mass/Vol] 32.6 g/dL 28.4 - 34.8 g/dL [facility] Phone: MCV (RBC) [Entitic vol] 94.8 fL 82.6 - 102.9 fL [facility] Phone: NRBC Automated 0.0 0.0 per 100 WBC [facility] Phone: Platelet distribution width (Bld) [Ratio] 13.4 % 11.8 - 14.4 % [facility] Phone: Platelet mean volume (Bld) [Entitic vol] 11.2 fL 8.1 - 13.5 fL [facility] Phone: Platelets (Bld) [#/Vol] 373 10*3/uL [facility] Phone: RBC (Bld) [#/Vol] 4.04 10*6/uL 3.95 - 5.1 1 m/uL [facility] Phone: WBC (Bld) [#/Vol] 24.9 10*3/uL High [facility] Phone: POCT urine pregnancyOrdered By: Gamaliel Harris on 01-07-2021 Beta HCG ( test) Ql (U) Negative NEGATIVE [facility] Phone: Comment on above: Specimens with hCG l evels near the threshold of the test (25 mIU/mL) may give a negative or indeterminate result. In such cases, another test should be performed with a new specimen in 48-72 hours. If early is suspected clinically in this setting, correlation with quantitative serum b-hCG level is suggested. [id number] 01-04-2021 SARS-CoV-2 (COVID-19) RNA JOSÉ MIGUEL+probe Ql (Unsp spec) Normal [facility] Comment on above: Performed By: #### C OVID #### [facility] [address] [place], [place] [id number] [employer]: Wei Reyna MD [address] [id number] [employer]: Harpal Adair MD SARS-CoV-2 (COVID-19) RNA JOSÉ MIGUEL+probe Ql (Unsp spec) Not detected Normal NOTDET [facility] Comment on above: Result Comment: The [...] this assay. Fact sheet for Healthcare Providers: https://www.fda.gov/media/020892/download Fact sheet for Patients: https://www.fda.gov/media/348616/download METHODOLOGY: RT-PCR Performed By: #### C OVID #### [facility] [address] [place], [place] [id number] [employer]: Wei Reyna MD [facility] [email or web address] [address] [place], [place] [id number] [employer]: Harpal Adair MD [id number] 01-03-2021 SARS-CoV-2 (COVID-19) RNA JOSÉ MIGUEL+probe Ql (Unsp spec) .NASOPHARYNGEAL SWAB Normal [facility] Comment on above: Performed By: #### C OVID #### [facility] [address] [place], [place] [id number] [employer]: Wei Reyna MD [facility] [address] [place] [address] [employer]: Harpal Adair MD Nicotine, BloodOrdered By: Jose Harris on 12-26-2020 0-AV-Nrvzuilt <2 ng/mL [facility] [employer] Work Phone: Cotinine <2 ng/mL [facility] [employer] Work Phone: Nicotine <2 ng/mL [facility] [employer] Work Phone: Comment on above: (NOTE) Consistent [...] developed and its performance characteristics determined by [facility]. It has not been cleared or approved by the US Food and Drug Administration. This test was performed in a CLIA certified laboratory and is intended for clinical purposes. Performed By: [facility] [address] [place] [id number] [employer]: Brissa Bonilla MD EKG 12 LeadOrdered By: Enmanuel Harris on 12-25-2020 Atrial Rate 70 BPM [employer] Phone: P Markle 20 degrees Infor Work Phone: P-R Interval 176 ms [facility] [employer] Phone: Q-T Interval 414 ms [facility] Phone: QRS Duration 88 ms Infor Work Phone: QTc Calculation (Bazett) 447 ms [facility] Phone: R Markle 7 degrees [facility] [facility] Phone: T Markle 8 degrees [facility] [employer] Phone: Ventricular Rate 70 BPM [employer] Work Phone: Normal sinus rhythm Normal ECG No previous ECGs available [facility] Phone: Dario, Mhpn Incoming E kg Results From [facility] - 12/25/2020 12:47 PM EDT Normal sinus rhythm Normal ECG No previous ECGs available [facility] Phone: APTTOrdered By: Gamaliel horvath on 12-24-2020 aPTT Coag (Bld) [Time] 23.1 s [facility] [employer] Phone: Comment on above: IV Heparin Therapy Range: 48.6-77.8 Basic Metabolic PanelOrdered By: Gamaliel Harris on 12-24-2020 Anion gap [Moles/Vol] 10 mmol/L 9 - 17 mmol/L [facility] [employer] Phone: Calcium [Mass/Vol] 9.4 mg/dL 8.6 - 10. 4 mg/dL [facility] [employer] Phone: Chloride [Moles/Vol] 106 mmol/L 98 - 10 7 mmol/L [facility] Phone: CO2 [Moles/Vol] 23 mmol/L 20 - 31 mmol/L [facility] Phone: Creatinine [Mass/Vol] 0.56 mg/dL 0.50 - 0.90 mg/dL [facility] [employer] Phone: GFR >60 >60 mL/min Uptake Phone: GFR Non- >60 >60 mL/min [facility] Phone: GFR/1.73 sq M.predicted MDRD (S/P/Bld) [Vol rate/Area] [facility] Phone: Comment on above: Average GFR for 30-3 9 years old: 107 mL/min/1.73sq m Chronic Kidney Disease: <60 mL/min/1.73sq m Kidney failure: <15 mL/min/1.73sq m eGFR calculated using average adult body mass. Additional eGFR calculator available at: http://www.[employer]/multiple_crcl_2012.htm GFR/1.73 sq M.predicted MDRD (S/P/Bld) [Vol rate/Area] NOT REPORTED [facility] Phone: Glucose [Mass/Vol] 86 mg/dL 70 - 99 mg/dL [facility] Phone: Potassium [Moles/Vol] 3.8 mmol/L 3.7 - 5.3 mmol/L [facility] Phone: Sodium [Moles/Vol] 139 mmol/L 135 - 144 mmol/L [facility] [employer] Phone: Urea nitrogen (BldV) [Mass/Vol] 12 mg/dL 6 - 20 mg/dL [facility] Phone: Urea nitrogen/Creatinine (Bld) [Mass ratio] NOT REPORTED [facility] Phone: CBCOrdered By: Gamaliel castillo on 12-24-2020 Hematocrit (Bld) [Volume fraction] 41.2 % 36.3 - 47.1 % [facility] Phone: Hemoglobin.gastrointe stinal spec 1 Ql (Stl) 13.4 g/dL 11.9 - 15.1 g/dL [facility] Phone: MCH (RBC) [Entitic mass] 30.5 pg 25.2 - 33.5 pg [facility] Phone: MCHC (RBC) [Mass/Vol] 32.5 g/dL 28.4 - 34.8 g/dL [facility] Phone: MCV (RBC) [Entitic vol] 93.6 fL 82.6 - 102.9 fL [facility] Phone: NRBC Automated 0.0 0.0 per 100 WBC [facility] Phone: Platelet distribution width (Bld) [Ratio] 13.2 % 11.8 - 14.4 % [facility] Phone: Platelet mean volume (Bld) [Entitic vol] 10.7 fL 8.1 - 13.5 fL [facility] Phone: Platelets (Bld) [#/Vol] 391 10*3/uL [facility] Phone: RBC (Bld) [#/Vol] 4.40 10*6/uL 3.95 - 5.1 1 m/uL [facility] Phone: WBC (Bld) [#/Vol] 8.5 10*3/uL [facility] [employer] Phone: Protime-INROrdered By: Enmanuel Harris on 12-24-2020 INR Coag (Bld) [Relative time] 0.9 {INR} [facility] [employer] Phone: Comment on above: Therapeutic Range: Moderate Anticoagulant Intensity: INR = 2.0-3.0 High Anticoagulant Intensity: INR = 2.5-3.5 PT Coag (PPP) [Time] 10 s Uptake Phone: XR CHEST (2 VW)on 12-24-2020 No acute cardiopulmo nary findings [facility] [employer] Phone: EXAMINATION: TWO XRA Y VIEWS OF THE CHEST 12/24/2020 11:24 am COMPARISON: None. HISTORY: ORDERING SYSTEM PROVIDED HISTORY: preop gastric bypass [employer] TECHNOLOGIST PROVIDED HISTORY: preop gastric bypass Itan [employer] Y Reason for Exam: no chest complaints FINDINGS: Normal cardiopericardial silhouette There are no significant mediastinal, pleural, parenchymal or osseous findings [facility] [employer] Phone: Dario, Mhpn Incoming Radiant Results From [facility] [facility] [employer] - 12/24/2020 11:30 AM EDT EXAMINATION: TWO XRAY VIEWS OF THE CHEST 12/24/2020 11:24 am COMPARISON: None. HISTORY: ORDERING SYSTEM PROVIDED HISTORY: preop gastric bypass [employer] TECHNOLOGIST PROVIDED HISTORY: preop gastric bypass Tian En Y Reason for Exam: no chest complaints FINDINGS: Normal cardiopericardial silhouette There are no significant mediastinal, pleural, parenchymal or osseous findings IMPRESSION: No acute cardiopulmonary findings [facility] Phone: XR CHEST (2 VW)Ordered By: Jose Harris on 12-24-2020 No acute cardiopulmo nary findings [facility] Phone: EXAMINATION: TWO XRA Y VIEWS OF THE CHEST 12/24/2020 11:24 am COMPARISON: None. HISTORY: ORDERING SYSTEM PROVIDED HISTORY: preop gastric bypass [employer] TECHNOLOGIST PROVIDED HISTORY: preop gastric bypass Tian En Y Reason for Exam: no chest complaints FINDINGS: Normal cardiopericardial silhouette There are no significant mediastinal, pleural, parenchymal or osseous findings [facility] Phone: Dario, Mhpn Incoming Radiant Results From [employer] [facility] [employer] - 12/24/2020 11:30 AM EDT EXAMINATION: TWO XRAY VIEWS OF THE CHEST 12/24/2020 11:24 am COMPARISON: None. HISTORY: ORDERING SYSTEM PROVIDED HISTORY: preop gastric bypass Tian En Y TECHNOLOGIST PROVIDED HISTORY: preop gastric bypass Tian En Y Reason for Exam: no chest complaints FINDINGS: Normal cardiopericardial silhouette There are no significant mediastinal, pleural, parenchymal or osseous findings IMPRESSION: No acute cardiopulmonary findings [employer] Phone: [place] UGI W AIR CONTRASTon 10-15 Intermittent signifi cant spontaneous GE reflux. Otherwise unremarkable double-contrast upper GI and esophagram. [employer] Phone: EXAMINATION: DOUBLE CONTRAST UPPER GI SERIES [...] The duodenal bulb and sweep are normal. [employer] Phone: Dario, [facility] Incoming Radiant Results From Health: [employer] [place] - 11/01/2020 5:21 PM EST EXAMINATION: DOUBLE [...] Otherwise unremarkable double-contrast upper GI and esophagram. [facility] Work Phone: COVID-19on 09-25-2020 SARS-CoV-2 [place], [place] SARS-CoV-2 Not Detected Not Detected [place], [place] Comment on above: The specimen is NEGATIVE for SARS-CoV-2, the novel coronavirus associated with COVID-19. A negative result does not rule out COVID-19. Heide SARS-CoV-2 for use on the [employer] is a real-time RT-PCR test intended [...] this assay. Fact sheet for Healthcare Providers: https://www.fda.gov/media/296409/download Fact sheet for Patients: https://www.fda.gov/media/524039/download METHODOLOGY: RT-PCR SARS-CoV-2, Rapid [place], [place] Source .NASOPHARYNGEAL SWAB [place], [place] Vital Signs Date Time Vital Sign Value Performing Clinician Facility 03-08-2024 15:02-0400 Diastolic blood pressure 78 mm[Hg] Alexis Shukla [facility] 03-08-2024 15:02-0400 Heart rate 65 /min Alexis LopezGlider [facility] 03-08-2024 15:02-0400 Mean blood pressure 89 mm[Hg] Alexis LopezGlider [facility] 03-08-2024 15:02-0400 SaO2% (BldA) [Mass fraction] 100 % Alexis LopezGlider [facility] 03-08-2024 15:02-0400 Systolic blood pressure 110 mm[Hg] Alexis Lopeze [facility] 03-08-2024 14:00-0400 SaO2% (BldA) [Mass fraction] 99 % Alexis Lopeze [facility] 03-08-2024 13:37-0400 Body temperature 98.42 [degF] Alexis Vazquez [facility] 03-08-2024 13:37-0400 Diastolic blood pressure 82 mm[Hg] Alexsi Vazquez [facility] 03-08-2024 13:37-0400 Heart rate 70 /min Alexis Vazquez [facility] 03-08-2024 13:37-0400 Respiratory rate 18 /min Alexis Lopeze [facility] 03-08-2024 13:37-0400 SaO2% (BldA) [Mass fraction] 100 % Alexis Vazquez [facility] 03-08-2024 13:37-0400 Systolic blood pressure 126 mm[Hg] Alexis Vazquez [facility] 03-08-2024 13:14-0400 Body temperature 98.24 [degF] Alexis Lopeze [facility] 03-08-2024 13:14-0400 Diastolic blood pressure 87 mm[Hg] Alexis Vazquez [facility] 03-08-2024 13:14-0400 Heart rate 67 /min Alexis Vazquez [facility] 03-08-2024 13:14-0400 Respiratory rate 16 /min Alexis Vazquez [facility] 03-08-2024 13:14-0400 Systolic blood pressure 135 mm[Hg] Alexis Shukla [facility] 03-08-2024 [id number] Body height 170.2 cm Elia Baires DO Work Phone: [facility] 03-08-2024 08:06-0400 Body mass index (BMI) [Ratio] 30.9 kg/m2 Elia Baires DO Work Phone: [facility] 03-08-2024 08:06-0400 Body weight 89.5 kg Elai Baires DO Work Phone: [facility] 03-08-2024 08:06-0400 Diastolic blood pressure 72 mm[Hg] Elia Baires DO Work Phone: [facility] 03-08-2024 08:06-0400 Heart rate 82 /min Elia Baires DO Work Phone: [facility] 03-08-2024 08:06-0400 SaO2% (BldA) [Mass fraction] 100 % Elia Baires DO Work Phone: [facility] 03-08-2024 08:06-0400 Systolic blood pressure 114 mm[Hg] Elia Baires DO Work Phone: [facility] 01-04-2024 09:28-0400 Body height 170.2 cm Elia Baires DO Work Phone: [facility] 01-04-2024 09:28-0400 Body mass index (BMI) [Ratio] 31.96 kg/m2 Elia Baires DO Work Phone: [facility] 01-04-2024 09:28-0400 Body weight 92.55 kg Elia Baires DO Work Phone: [facility] 01-04-2024 09:28-0400 Diastolic blood pressure 86 mm[Hg] Elia Baires DO Work Phone: [facility] 01-04-2024 09:28-0400 Heart rate 92 /min Elia Baires DO Work Phone: [facility] 01-04-2024 09:28-0400 SaO2% (BldA) [Mass fraction] 97 % Elia Baires DO Work Phone: [facility] 01-04-2024 09:28-0400 Systolic blood pressure 123 mm[Hg] Elia Baires DO Work Phone: [facility] 12-31-2023 11:17-0400 Heart rate 76 /min DO Jnenie Ames Work Phone: [facility] 12-31-2023 11:14-0400 Body temperature 98.2 [degF] DO Jennie Ames Work Phone: [facility] 12-31-2023 11:14-0400 Diastolic blood pressure 73 mm[Hg] DO Jennie Ames Work Phone: [facility] 12-31-2023 11:14-0400 Respiratory rate 18 /min DO Jennie Ames Work Phone: [facility] 12-31-2023 11:14-0400 SaO2% (BldA) [Mass fraction] 97 % DO Jennie Ames Work Phone: [facility] 12-31-2023 11:14-0400 Systolic blood pressure 138 mm[Hg] DO Jennie Ames Work Phone: [facility] 12-31-2023 11:13-0400 Body height 170.18 cm DO Jennie Ames Work Phone: [facility] 12-31-2023 11:13-0400 Body weight 89.35 kg DO Jennie Ames Work Phone: [facility] 12-24-2023 11:58-0400 Body height 170.18 cm DO Jennie Ames Work Phone: [facility] 12-24-2023 11:58-0400 Body temperature 97.8 [degF] DO Jennie Ames Work Phone: [facility] 12-24-2023 11:58-0400 Body weight 89 kg DO Jennie Ames Work Phone: [facility] 12-24-2023 11:58-0400 Diastolic blood pressure 91 mm[Hg] DO Jennie Ames Work Phone: [facility] 12-24-2023 11:58-0400 Heart rate 85 /min DO Jennie Ames Work Phone: [facility] 12-24-2023 11:58-0400 Respiratory rate 15 /min DO Jennie Ames Work Phone: [facility] 12-24-2023 11:58-0400 SaO2% (BldA) [Mass fraction] 100 % DO Jennie Ames Work Phone: [facility] 12-24-2023 11:58-0400 Systolic blood pressure 137 mm[Hg] DO Jennie Ames Work Phone: [facility] 12-10-2023 12:35-0400 Heart rate 70 /min DO Jennie Ames Work Phone: [facility] 12-10-2023 12:35-0400 Respiratory rate 16 /min DO Jennie Ames Work Phone: [facility] 12-10-2023 12:35-0400 SaO2% (BldA) [Mass fraction] 98 % DO Jennie Ames Work Phone: [facility] 12-10-2023 12:08-0400 Body height 170.18 cm DO Jennie Ames Work Phone: [facility] 12-10-2023 12:08-0400 Body temperature 98 [degF] DO Jennie Ames Work Phone: [facility] 12-10-2023 12:08-0400 Body weight 89.8 kg DO Jennie Ames Work Phone: [facility] 12-10-2023 12:08-0400 Diastolic blood pressure 76 mm[Hg] DO Jennie Ames Work Phone: [facility] 12-10-2023 12:08-0400 Systolic blood pressure 123 mm[Hg] DO Jennie Ames Work Phone: [facility] 09-18-2023 08:49-0500 Diastolic blood pressure 72 mm[Hg] Gamaliel Harris DO Work Phone: [facility] [employer] 09-18-2023 08:49-0500 Heart rate 58 /min Gamaliel Harris DO Work Phone: [facility] [employer] 09-18-2023 08:49-0500 Respiratory rate 18 /min Gamaliel Harris DO Work Phone: [facility] [employer] 09-18-2023 08:49-0500 SaO2% (BldA) [Mass fraction] 100 % Gamaliel Harris DO Work Phone: [employer] 09-18-2023 08:49-0500 Systolic blood pressure 111 mm[Hg] Gamaliel Harris DO Work Phone: [employer] 09-18-2023 08:24-0500 Body temperature 97.11 [degF] Gamaliel Harris DO Work Phone: [facility] [employer] 09-18-2023 07:23-0500 Body height 170.2 cm Gamaliel Harris DO Work Phone: [facility] [employer] 09-18-2023 07:23-0500 Body mass index (BMI) [Ratio] 31.79 kg/m2 Gamaliel Harris DO Work Phone: [employer] 09-18-2023 07:23-0500 Body weight 92.08 kg Gamaliel Harris DO Work Phone: [facility] [employer] 08-15-2023 13:37-0500 Diastolic blood pressure 69 mm[Hg] DO Jennie Ames Work Phone: [facility] 08-15-2023 13:37-0500 Heart rate 70 /min DO Jennie Ames Work Phone: [facility] 08-15-2023 13:37-0500 Respiratory rate 18 /min DO Jennie Ames Work Phone: [facility] 08-15-2023 13:37-0500 SaO2% (BldA) [Mass fraction] 99 % DO Jennie Ames Work Phone: [facility] 08-15-2023 13:37-0500 Systolic blood pressure 107 mm[Hg] DO Jennie Ames Work Phone: [facility] 08-15-2023 11:29-0500 Body height 170.18 cm DO Jennie Ames Work Phone: [facility] 08-15-2023 11:29-0500 Body temperature 98.2 [degF] DO Jennie Ames Work Phone: [facility] 08-15-2023 11:29-0500 Body weight 86.18 kg DO Jennie Ames Work Phone: [facility] 08-14-2023 16:43-0500 Body height 170.18 cm DO Jennie Ames Work Phone: [facility] 08-14-2023 16:43-0500 Body temperature 98.2 [degF] DO Jennie Ames Work Phone: [facility] 08-14-2023 16:43-0500 Body weight 88.6 kg DO Jennie Ames Work Phone: [facility] 08-14-2023 16:43-0500 Diastolic blood pressure 66 mm[Hg] DO Jennie Ames Work Phone: [facility] 08-14-2023 16:43-0500 Heart rate 80 /min DO Jennie Ames Work Phone: [facility] 08-14-2023 16:43-0500 Respiratory rate 18 /min DO Jennie Ames Work Phone: [facility] 08-14-2023 16:43-0500 SaO2% (BldA) [Mass fraction] 98 % DO Jennie Ames Work Phone: [facility] 08-14-2023 16:43-0500 Systolic blood pressure 118 mm[Hg] DO Jennie Ames Work Phone: [facility] 08-13-2023 11:15-0500 Body height 170.18 cm Imad Asaad Other [employer] Other 08-13-2023 11:15-0500 Body mass index (BMI) [Ratio] 30.54 kg/m2 Imad Asaad Other [employer] Other 08-13-2023 11:15-0500 Body weight 88.45 kg Imad Asaad Other [employer] Other 08-13-2023 11:15-0500 Diastolic blood pressure 84 mm[Hg] Imad Asaad Other [employer] Other 08-13-2023 11:15-0500 Systolic blood pressure 133 mm[Hg] Imad Asaad Other [employer] Other 07-08-2023 12:05-0400 Body height 170.18 cm Ania Javed Other [employer] Other 07-08-2023 12:05-0400 Body mass index (BMI) [Ratio] 30.22 kg/m2 Ania Javed Other [employer] Other 07-08-2023 12:05-0400 Body temperature 99 [degF] Ania Javed Other [employer] Other 07-08-2023 12:05-0400 Body weight 87.54 kg Ania Javed Other [employer] Other 07-08-2023 12:05-0400 Diastolic blood pressure 64 mm[Hg] Ania Javed Other [employer] Other 07-08-2023 12:05-0400 Respiratory rate 19 /min Ania Javed Other [employer] Other 07-08-2023 12:05-0400 SaO2% (BldA) [Mass fraction] 98 % Ania Javed Other [employer] Other 07-08-2023 12:05-0400 Systolic blood pressure 110 mm[Hg] Ania Javed Other [employer] Other 07-03-2023 11:05-0400 Diastolic blood pressure 80 mm[Hg] DO Jennie Ames Work Phone: [facility] 07-03-2023 11:05-0400 Heart rate 78 /min DO Jennie Ames Work Phone: [facility] 07-03-2023 11:05-0400 Respiratory rate 16 /min DO Jennie Ames Work Phone: [facility] 07-03-2023 11:05-0400 SaO2% (BldA) [Mass fraction] 99 % DO Jennie Ames Work Phone: [facility] 07-03-2023 11:05-0400 Systolic blood pressure 119 mm[Hg] DO Jennie Ames Work Phone: [facility] 07-03-2023 10:10-0400 Body height 170.18 cm DO Jennie Ames Work Phone: [facility] 07-03-2023 10:10-0400 Body temperature 98.7 [degF] DO Jennie Ames Work Phone: [facility] 07-03-2023 10:10-0400 Body weight 86.9 kg DO Jennie Ames Work Phone: [facility] 07-02-2023 14:06-0400 Body temperature 98.06 [degF] Bakari Henrik [facility] 07-02-2023 14:06-0400 Diastolic blood pressure 78 mm[Hg] Bakari Henrik [facility] 07-02-2023 14:06-0400 Heart rate 91 /min Bakari Henrik [facility] 07-02-2023 14:06-0400 Respiratory rate 18 /min Bakari Henrik [facility] 07-02-2023 14:06-0400 SaO2% (BldA) [Mass fraction] 100 % Bakari Henrik [facility] 07-02-2023 14:06-0400 Systolic blood pressure 121 mm[Hg] Bakari Henrik [facility] 01-15-2023 13:30-0400 Diastolic blood pressure 85 mm[Hg] Bakari Henrik [facility] 01-15-2023 13:30-0400 Heart rate 71 /min Bakari Henrik [facility] 01-15-2023 13:30-0400 Mean blood pressure 98 mm[Hg] Bakari Henrik [facility] 01-15-2023 13:30-0400 Respiratory rate 18 /min Bakari Henrik [facility] 01-15-2023 13:30-0400 SaO2% (BldA) [Mass fraction] 100 % Bakari Henrik [facility] 01-15-2023 13:30-0400 Systolic blood pressure 125 mm[Hg] Bakari Henrik [facility] 01-15-2023 12:30-0400 Diastolic blood pressure 99 mm[Hg] Bakari Chester [facility] 01-15-2023 12:30-0400 Heart rate 78 /min Bakari Henrik [facility] 01-15-2023 12:30-0400 Mean blood pressure 107 mm[Hg] Bakari Chester [facility] 01-15-2023 12:30-0400 Respiratory rate 18 /min Bakari Chester [facility] 01-15-2023 12:30-0400 SaO2% (BldA) [Mass fraction] 100 % Bakari Chester [facility] 01-15-2023 12:30-0400 Systolic blood pressure 122 mm[Hg] Bakari Chester [facility] 01-15-2023 10:50-0400 Body temperature 98.42 [degF] Bakari Chester [facility] 01-15-2023 10:50-0400 Diastolic blood pressure 74 mm[Hg] Bakari Henrik [facility] 01-15-2023 10:50-0400 Heart rate 77 /min Bakari Henrik [facility] 01-15-2023 10:50-0400 Mean blood pressure 92 mm[Hg] Bakari Henrik [facility] 01-15-2023 10:50-0400 Respiratory rate 17 /min Bakari Henrik [facility] 01-15-2023 10:50-0400 SaO2% (BldA) [Mass fraction] 99 % Bakari Chester [facility] 01-15-2023 10:50-0400 Systolic blood pressure 129 mm[Hg] Bakari Chester [facility] 12-05-2022 13:20-0400 Diastolic blood pressure 74 mm[Hg] Gal Das [facility] 12-05-2022 13:20-0400 Heart rate 58 /min Gal Das [facility] 12-05-2022 13:20-0400 Respiratory rate 18 /min Gal Das [facility] 12-05-2022 13:20-0400 SaO2% (BldA) [Mass fraction] 100 % Gal Das [facility] 12-05-2022 13:20-0400 Systolic blood pressure 110 mm[Hg] Gal Das [facility] 12-05-2022 12:00-0400 Heart rate 54 /min Gal Das [facility] 12-05-2022 12:00-0400 SaO2% (BldA) [Mass fraction] 100 % Gal Das [facility] 12-05-2022 11:59-0400 Diastolic blood pressure 72 mm[Hg] Gal Das [facility] 12-05-2022 11:59-0400 Mean blood pressure 84 mm[Hg] Gal Das [facility] 12-05-2022 11:59-0400 Systolic blood pressure 109 mm[Hg] Gal Das [facility] 12-05-2022 11:53-0400 Body temperature 97.52 [degF] Gal Das [facility] 12-05-2022 11:53-0400 Diastolic blood pressure 73 mm[Hg] Gal Das [facility] 12-05-2022 11:53-0400 Heart rate 59 /min Gal Das [facility] 12-05-2022 11:53-0400 Mean blood pressure 87 mm[Hg] Gal Das [facility] 12-05-2022 11:53-0400 Respiratory rate 14 /min Gal Das [facility] 12-05-2022 11:53-0400 SaO2% (BldA) [Mass fraction] 100 % Gal Das [facility] 12-05-2022 11:53-0400 Systolic blood pressure 115 mm[Hg] Gal Das [facility] 12-05-2022 11:40-0400 Mean blood pressure 80 mm[Hg] Gal Das [facility] 12-05-2022 11:40-0400 Respiratory rate 18 /min Gal Das [facility] 12-05-2022 11:30-0400 Mean blood pressure 90 mm[Hg] Gal Das [facility] 12-05-2022 11:15-0400 Body temperature 97.34 [degF] Gal Das [facility] 12-05-2022 11:10-0400 Respiratory rate 18 /min Gal Das [facility] 12-05-2022 11:05-0400 Respiratory rate 21 /min Gal Das [facility] 12-05-2022 11:00-0400 Respiratory rate 11 /min Gal Das [facility] 12-05-2022 07:15-0400 Mean blood pressure 79 mm[Hg] Gal Das [facility] 12-05-2022 07:15-0400 Body temperature 97.88 [degF] Gal Das [facility] 12-05-2022 07:15-0400 Heart rate 72 /min Gal Das [facility] 12-05-2022 07:12-0400 Mean blood pressure 82 mm[Hg] Gal Das [facility] 11-21-2022 10:44-0500 Diastolic blood pressure 75 mm[Hg] Gal Das [facility] 11-21-2022 10:44-0500 Heart rate 67 /min Gal Das [facility] 11-21-2022 10:44-0500 Mean blood pressure 88 mm[Hg] Gal Das [facility] 11-21-2022 10:44-0500 Systolic blood pressure 112 mm[Hg] Gal Das [facility] 11-21-2022 10:44-0500 Heart rate 71 /min Gal Das [facility] 11-21-2022 10:44-0500 SaO2% (BldA) [Mass fraction] 100 % Gal Das [facility] 11-21-2022 10:43-0500 Diastolic blood pressure 79 mm[Hg] Gal Das [facility] 11-21-2022 10:43-0500 Mean blood pressure 91 mm[Hg] Gal Das [facility] 11-21-2022 10:43-0500 Systolic blood pressure 116 mm[Hg] Gal Das [facility] 11-21-2022 10:43-0500 Respiratory rate 16 /min Gal Das [facility] 11-20-2022 08:09-0500 Body height 170.2 cm Eileen Manzano MD Work Phone: [facility] 11-20-2022 08:09-0500 Body weight 85.73 kg Eileen Manzano MD Work Phone: [facility] 11-20-2022 08:09-0500 Diastolic blood pressure 81 mm[Hg] Eileen Manzano MD Work Phone: [facility] 11-20-2022 08:09-0500 Heart rate 67 /min Eileen Manzano MD Work Phone: [facility] 11-20-2022 08:09-0500 SaO2% (BldA) [Mass fraction] 100 % Eileen Manzano MD Work Phone: [facility] 11-20-2022 08:09-0500 Systolic blood pressure 137 mm[Hg] Eileen Manzano MD Work Phone: [facility] 11-03-2022 12:57-0500 Blood Pressure Location Nakiaarmando [facility] 11-03-2022 12:57-0500 Body temperature 98.24 [degF] Nakia [facility] 11-03-2022 12:57-0500 Diastolic blood pressure 80 mm[Hg] Nakia Mcqueen [facility] 11-03-2022 12:57-0500 Heart rate 85 /min Nakiadestin Mcqueen [facility] 11-03-2022 12:57-0500 SaO2% (BldA) [Mass fraction] 98 % Nakia Mcqueen [facility] 11-03-2022 12:57-0500 Systolic blood pressure 104 mm[Hg] Nakia [facility] 09-24-2022 06:57-0500 Blood Pressure Location Aimee Walker [facility] 09-24-2022 06:57-0500 Body temperature 98.24 [degF] Aimee Walker [facility] 09-24-2022 06:57-0500 Diastolic blood pressure 64 mm[Hg] Aimee Walker [facility] 09-24-2022 06:57-0500 Heart rate 77 /min Aimee Walker [facility] 09-24-2022 06:57-0500 SaO2% (BldA) [Mass fraction] 99 % Aimee Walker [facility] 09-24-2022 06:57-0500 Systolic blood pressure 118 mm[Hg] Aimee Walker [facility] 08-22-2022 10:31-0500 Blood Pressure Location Rahul Alfonzovic[facility] 08-22-2022 10:31-0500 Body temperature 98.06 [degF] Rahul Salinas [facility] 08-22-2022 10:31-0500 Diastolic blood pressure 76 mm[Hg] Rahul Alfonzovicente [facility] 08-22-2022 10:31-0500 Heart rate 95 /min Rahul Salinas [facility] 08-22-2022 10:31-0500 SaO2% (BldA) [Mass fraction] 98 % [facility] 08-22-2022 10:31-0500 Systolic blood pressure 110 mm[Hg] Rahul Salinas [facility] 08-19-2022 09:45-0500 Diastolic blood pressure 69 mm[Hg] DO Jennie Ames Work Phone: [facility] 08-19-2022 09:45-0500 Heart rate 82 /min DO Jennie Ames Work Phone: [facility] 08-19-2022 09:45-0500 Respiratory rate 16 /min DO Jennie Ames Work Phone: [facility] 08-19-2022 09:45-0500 SaO2% (BldA) [Mass fraction] 95 % DO Jennie Ames Work Phone: [facility] 08-19-2022 09:45-0500 Systolic blood pressure 104 mm[Hg] DO Jennie Ames Work Phone: [facility] 08-19-2022 07:41-0500 Body height 170.18 cm DO Jennie Ames Work Phone: [facility] 08-19-2022 07:41-0500 Body weight 83.6 kg DO Jennie Ames Work Phone: [facility] 08-18-2022 17:26-0500 Body temperature 98.06 [degF] Alexis Shukla [facility] 08-18-2022 17:26-0500 Diastolic blood pressure 83 mm[Hg] Alexis Shukla [facility] 08-18-2022 17:26-0500 Heart rate 84 /min Alexis Shukla [facility] 08-18-2022 17:26-0500 Respiratory rate 18 /min Alexis Shukla [facility] 08-18-2022 17:26-0500 SaO2% (BldA) [Mass fraction] 98 % Alexis Shukla [facility] 08-18-2022 17:26-0500 Systolic blood pressure 120 mm[Hg] Alexis Shukla [facility] 08-12-2022 15:50-0500 Body temperature 97.9 [degF] DO Jennie Ames Work Phone: [facility] 08-12-2022 15:50-0500 Diastolic blood pressure 83 mm[Hg] DO Jennie Ames Work Phone: [facility] 08-12-2022 15:50-0500 Heart rate 64 /min DO Jennie Ames Work Phone: [facility] 08-12-2022 15:50-0500 Respiratory rate 20 /min DO Jennie Ames Work Phone: [facility] 08-12-2022 15:50-0500 SaO2% (BldA) [Mass fraction] 100 % DO Jennie Ames Work Phone: [facility] 08-12-2022 15:50-0500 Systolic blood pressure 136 mm[Hg] DO Jennie Ames Work Phone: [facility] 08-12-2022 11:00-0500 Body height 170.18 cm DO Jennie Ames Work Phone: [facility] 08-12-2022 06:00-0500 Body weight 88.1 kg DO Jennie Ames Work Phone: [facility] 08-08-2022 10:30-0500 Diastolic blood pressure 76 mm[Hg] Bakari Chester [facility] 08-08-2022 10:30-0500 Heart rate 58 /min Bakari Chester [facility] 08-08-2022 10:30-0500 Mean blood pressure 88 mm[Hg] Bakari Chester [facility] 08-08-2022 10:30-0500 Respiratory rate 20 /min Bakari Henrik [facility] 08-08-2022 10:30-0500 SaO2% (BldA) [Mass fraction] 100 % Bakari Henrik [facility] 08-08-2022 10:30-0500 Systolic blood pressure 112 mm[Hg] Bakari Henrik [facility] 08-08-2022 10:00-0500 Diastolic blood pressure 86 mm[Hg] Bakari Henrik [facility] 08-08-2022 10:00-0500 Heart rate 64 /min Bakari Henrik [facility] 08-08-2022 10:00-0500 Mean blood pressure 97 mm[Hg] Bakari Henrik [facility] 08-08-2022 10:00-0500 Systolic blood pressure 120 mm[Hg] Bakari Henrik [facility] 08-08-2022 09:13-0500 gluc 98 mg/dL Bakari Henrik [facility] 08-08-2022 09:13-0500 gluc Bakari Henrik [facility] 08-08-2022 09:06-0500 Body temperature 97.7 [degF] Bakari Henrik [facility] [facility] 08-08-2022 09:06-0500 Diastolic blood pressure 87 mm[Hg] Bakari Henrik [facility] 08-08-2022 09:06-0500 Heart rate 79 /min Bakari Henrik [facility] 08-08-2022 09:06-0500 Respiratory rate 18 /min Bakari Henrik [facility] 08-08-2022 09:06-0500 SaO2% (BldA) [Mass fraction] 100 % Bakari Chester [facility] 08-08-2022 09:06-0500 Systolic blood pressure 127 mm[Hg] Bakari Chester [facility] 07-21-2022 10:50-0500 Blood Pressure Location Aimee Walker [facility] 07-21-2022 10:50-0500 Body temperature 97.7 [degF] Aimeeerin Valadezell [facility] 07-21-2022 10:50-0500 Diastolic blood pressure 72 mm[Hg] Aimee Walker [facility] 07-21-2022 10:50-0500 Heart rate 74 /min Aimeeerin Valadezell [facility] 07-21-2022 10:50-0500 SaO2% (BldA) [Mass fraction] 99 % Aimeeerin Valadezell [facility] 07-21-2022 10:50-0500 Systolic blood pressure 128 mm[Hg] Aimee Valadezell [facility] 05-13-2022 10:09-0400 Diastolic blood pressure 74 mm[Hg] Alexis Rivers [facility] [place] 05-13-2022 10:09-0400 Heart rate 68 /min Alexis Rivers [facility] [place] 05-13-2022 10:09-0400 Systolic blood pressure 112 mm[Hg] Alexis Rivers [facility] [place] 04-21-2022 09:39-0400 Blood Pressure Location Aimee Walker [facility] 04-21-2022 09:39-0400 Body temperature 98.24 [degF] Aimee Valadezell [facility] 04-21-2022 09:39-0400 Diastolic blood pressure 72 mm[Hg] Aimeeerin Valadezell [facility] 04-21-2022 09:39-0400 Heart rate 94 /min Aimeeerin Valadezell [facility] 04-21-2022 09:39-0400 SaO2% (BldA) [Mass fraction] 100 % Aimee Walker [facility] 04-21-2022 09:39-0400 Systolic blood pressure 112 mm[Hg] Aimee Valadezell [facility] 04-20-2022 14:56-0400 Body temperature 98.24 [degF] [facility] 04-20-2022 14:56-0400 Diastolic blood pressure 72 mm[Hg] [facility] 04-20-2022 14:56-0400 Heart rate 69 /min [facility] 04-20-2022 14:56-0400 Respiratory rate 18 /min [facility] 04-20-2022 14:56-0400 SaO2% (BldA) [Mass fraction] 99 % [facility] 04-20-2022 14:56-0400 Systolic blood pressure 111 mm[Hg] [facility] 04-03-2022 19:17-0400 Hourly Rounding Kaylinn Dokken [facility] 04-03-2022 19:17-0400 Promise to Return Kaylinn Dokken [facility] 04-03-2022 19:15-0400 Diastolic blood pressure 71 mm[Hg] Kaylinn Dokken [facility] 04-03-2022 19:15-0400 Heart rate 63 /min Kaylinn Dokken [facility] 04-03-2022 19:15-0400 Mean blood pressure 82 mm[Hg] Kaylinn Dokken [facility] 04-03-2022 19:15-0400 Respiratory rate 18 /min Kaylinn Dokken [facility] 04-03-2022 19:15-0400 SaO2% (BldA) [Mass fraction] 100 % Kaylinn Dokken [facility] 04-03-2022 19:15-0400 Systolic blood pressure 105 mm[Hg] Kaylinn Dokken [facility] 04-03-2022 17:09-0400 Body temperature 98.06 [degF] Kaylinn Dokken [facility] 04-03-2022 17:09-0400 Diastolic blood pressure 83 mm[Hg] Kaylinn Dokken [facility] 04-03-2022 17:09-0400 Heart rate 87 /min Kaylinn Dokken [facility] 04-03-2022 17:09-0400 Respiratory rate 18 /min Kaylinn Dokken [facility] 04-03-2022 17:09-0400 SaO2% (BldA) [Mass fraction] 99 % Larry Baker [facility] 04-03-2022 17:09-0400 Systolic blood pressure 119 mm[Hg] Larry Baker [facility] 02-06-2022 09:06-0400 Blood Pressure Location Aimee Walker [facility] 02-06-2022 09:06-0400 Body temperature 97.52 [degF] Aimee Walker [facility] 02-06-2022 09:06-0400 Diastolic blood pressure 72 mm[Hg] Aimee Walker [facility] 02-06-2022 09:06-0400 Heart rate 81 /min Aimee Walker [facility] 02-06-2022 09:06-0400 SaO2% (BldA) [Mass fraction] 100 % Aimee Walker [facility] 02-06-2022 09:06-0400 Systolic blood pressure 130 mm[Hg] Aimee Walker [facility] 01-29-2022 10:31-0400 Blood Pressure Location Aimee Walker [facility] 01-29-2022 10:31-0400 Body temperature 97.16 [degF] Aimee Walker [facility] 01-29-2022 10:31-0400 Diastolic blood pressure 76 mm[Hg] Aimee Walker [facility] 01-29-2022 10:31-0400 Heart rate 94 /min Aimee Walker [facility] 01-29-2022 10:31-0400 SaO2% (BldA) [Mass fraction] 98 % Aimee Walker [facility] 01-29-2022 10:31-0400 Systolic blood pressure 118 mm[Hg] Aimee Walker [facility] 02-01-2021 07:15-0400 Body temperature 97.7 [degF] Berry Lawson MD Work Phone: [employer] Work Phone: 02-01-2021 07:15-0400 Diastolic blood pressure 63 mm[Hg] Berry Lawson MD Work Phone: [employer] Work Phone: 02-01-2021 07:15-0400 Heart rate 82 /min Berry Lawson MD Work Phone: Infor Work Phone: 02-01-2021 07:15-0400 Respiratory rate 18 /min Berry Lawson MD Work Phone: Infor Work Phone: 02-01-2021 07:15-0400 SaO2% (BldA) [Mass fraction] 98 % Berry Lawson MD Work Phone: Infor Work Phone: 02-01-2021 07:15-0400 Systolic blood pressure 110 mm[Hg] Berry Lawson MD Work Phone: Infor Work Phone: 01-30-2021 16:54-0400 Body height 170.2 cm Berry Lawson MD Work Phone: Infor Work Phone: 01-30-2021 16:54-0400 Body mass index (BMI) [Ratio] 38.53 kg/m2 Berry Lawson MD Work Phone: [employer]for Work Phone: 01-30-2021 16:54-0400 Body weight 111.58 kg Berry Lawson MD Work Phone: Infor Work Phone: 01-30-2021 14:27-0400 Diastolic blood pressure 66 mm[Hg] David Nash MD Work Phone: Infor Work Phone: 01-30-2021 14:27-0400 Heart rate 93 /min David Nash MD Work Phone: Infor Work Phone: 01-30-2021 14:27-0400 Respiratory rate 16 /min David Nash MD Work Phone: Infor Work Phone: 01-30-2021 14:27-0400 SaO2% (BldA) [Mass fraction] 98 % David Nash MD Work Phone: Infor Work Phone: 01-30-2021 14:27-0400 Systolic blood pressure 107 mm[Hg] David Nash MD Work Phone: Infor Work Phone: 01-30-2021 09:51-0400 Body temperature 97.2 [degF] David Nash MD Work Phone: [employer] Phone: 01-26-2021 09:00-0400 Body temperature 98.2 [degF] Gamaliel Harris [employer] Work Phone: [employer] Phone: 01-26-2021 09:00-0400 Diastolic blood pressure 77 mm[Hg] Gamaliel Harris [employer] Work Phone: [employer] Phone: 01-26-2021 09:00-0400 Heart rate 90 /min Gamaliel Harris [employer] Work Phone: [employer] Phone: 01-26-2021 09:00-0400 Respiratory rate 16 /min Gamaliel Harris [employer] Work Phone: [employer] Work Phone: 01-26-2021 09:00-0400 SaO2% (BldA) [Mass fraction] 96 % Gamaliel Harris [employer] Work Phone: Infor Work Phone: 01-26-2021 09:00-0400 Systolic blood pressure 111 mm[Hg] Gamaliel Harris DO Work Phone: Infor Work Phone: 01-08-2021 07:35-0400 Body temperature 97.81 [degF] Gamaliel Harris [employer] Work Phone: [employer] Phone: 01-08-2021 07:35-0400 SaO2% (BldA) [Mass fraction] 97 % Gamaliel Harris [employer] Work Phone: [employer] Phone: 01-08-2021 07:29-0400 Diastolic blood pressure 77 mm[Hg] Gamaliel Harris DO Work Phone: [employer] Phone: 01-08-2021 07:29-0400 Heart rate 87 /min Gamaliel Harris [employer] Work Phone: [employer] Phone: 01-08-2021 07:29-0400 Respiratory rate 18 /min Gamaliel Harris [employer] Work Phone: Infor Work Phone: 01-08-2021 07:29-0400 Systolic blood pressure 123 mm[Hg] Gamaliel Harris [employer] Work Phone: [employer] Phone: 01-07-2021 06:29-0400 Body height 170.2 cm Gamaliel Harris [employer] Work Phone: [employer] Phone: 01-07-2021 06:29-0400 Body mass index (BMI) [Ratio] 40.68 kg/m2 Gamaliel Harris [employer] Work Phone: [employer] Phone: 01-07-2021 06:29-0400 Body weight 117.8 kg Gamaliel Harris [employer] Work Phone: [employer] Phone: 12-24-2020 10:33-0400 Body height 170.2 cm Stvz 2 [employer] Phone: 12-24-2020 10:33-0400 Body mass index (BMI) [Ratio] 42.76 kg/m2 [facility] 2 [employer] Phone: 12-24-2020 10:33-0400 Body temperature 97.7 [degF] [facility] [employer] Phone: 12-24-2020 10:33-0400 Body weight 123.83 kg Stvz 2 [employer] Phone: 12-24-2020 10:33-0400 Diastolic blood pressure 76 mm[Hg] [facility] [employer] Phone: 12-24-2020 10:33-0400 Heart rate 71 /min [facility] [employer] Phone: 12-24-2020 10:33-0400 Respiratory rate 18 /min [facility] [employer] Phone: 12-24-2020 10:33-0400 SaO2% (BldA) [Mass fraction] 98 % [facility] [employer] Phone: 12-24-2020 10:33-0400 Systolic blood pressure 115 mm[Hg] Stvz 2 [employer] Phone: 09-28-2020 08:40-0500 BP Diastolic 75 mm[Hg] [facility]iel[facility] HealthMore[facility] SystemsC[facility] [place] 09-28-2020 08:40-0500 BP Systolic 117 mm[Hg] Gam[facility]iel[facility] HealthliveMag.ro [place] 09-28-2020 08:40-0500 Pulse (Heart Rate) 84 /min [place] 09-28-2020 08:40-0500 Pulse Oximetry 100 % Gam[facility]iel [facility] [place] 09-28-2020 08:25-0500 Body Temperature 96.8 [degF] [place] 09-28-2020 08:25-0500 Respiratory Rate 23 /min Gamaliel [place] 09-28-2020 07:07-0500 BMI (Body Mass Index) 45.66 kg/m2 Gamaliel Harris [facility] [place] 09-28-2020 07:07-0500 Body weight 132.22 kg Gam[facility]ielBallad HealthMorega SystemsWE[facility] [place] 09-28-2020 07:07-0500 Height 170.2 cm Gamaliel [facility] [place] Encounters Encounter Date Encounter Type Care Provider Facility Start: 05-11-2024 ambulatory Lindy Keen Facility :[facility] Start: 04-26-2024 ambulatory Elia mcdowell DO Work Phone: Family Medicine Start: 03-08-2024 End: 03-08-2024 Emergency department patient visit Alexis Shukla [facility] Start: 03-08-2024 End: 03-08-2024 Subsequent hospital visit by physician Mri [facility] (Lg Bore/1.5t) Radiology MRI Comment on above: 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 ] Start: 03-08-2024 End: 03-08-2024 ambulatory ELIA BAIRES Facility:[facility] Start: 03-08-2024 End: 03-08-2024 Patient encounter procedure [...] encounter status Elia Baires DO Work Phone: [facility] Work Phone: Start: 02-25-2024 End: 02-25-2024 ambulatory ELIA BAIRES Facility:[facility] Start: 01-13-2024 End: 01-14-2024 ambulatory [facility] Start: 01-05-2024 Telephone encounter Elia rob DO Work Phone: [facility] Start: 01-04-2024 End: 01-04-2024 ambulatory ELIA BAIRES Facility:[facility] Start: 01-04-2024 End: 01-04-2024 Patient encounter procedure Elia Baires DO Work Phone: Family Medicine Comment on above: Panic disorder (Prim masoud Dx); Borderline personality disorder (HCC); Bipolar affective disorder in remission (HCC); Chronic alcoholism in remission (HCC); Routine health maintenance Start: 01-04-2024 End: 01-04-2024 Patient encounter status Elia Baires DO Work Phone: [facility] Start: 12-31-2023 End: 12-31-2023 Emergency department patient visit DO Jennie Ames Work Phone: [facility] Work Phone: Start: 12-25-2023 ambulatory SELF REFERRAL [place] [facility] Start: 12-24-2023 End: 12-24-2023 Emergency department patient visit DO Jennie Ames Work Phone: [facility] Work Phone: Start: 2023 ambulatory Otto Larsen [place] Start: 12-10-2023 End: 12-10-2023 Emergency department patient visit DO Jennie Ames Work Phone: [facility] Work Phone: Start: 12-09-2023 End: 12-09-2023 ambulatory Jennie Ngo Ames [place] Start: 12-09-2023 End: 12-09-2023 Patient encounter procedure Jennie Ames [facility] Start: 10-23-2023 End: 10-26-2023 [facility] Start: 10-12-2023 End: 10-15-2023 amb[facility] Start: 09-18-2023 End: 09-18-2023 ambulatory GAMALIEL HARRIS [facility] Start: 09-18-2023 End: 09-18-2023 Subsequent hospital visit by physician Gamaliel Harris DO Work Phone: [facility] Start: 08-31-2023 End: 09-01-2023 ambulatory HEYDIR Fallon IRVINURUTH Facility:[facility] Start: 08-28-2023 End: 08-28-2023 ambulatory Imad Asaad Other [employer] Other Start: 08-28-2023 Telephone encounter Imad Asaad [facility] Start: 08-18-2023 End: 08-21-2023 [facility] Start: 08-15-2023 End: 08-15-2023 Emergency department patient visit DO Jennie Ames Work Phone: [facility] Work Phone: Start: 08-14-2023 End: 08-14-2023 Emergency department patient visit DO Jennie Ames Work Phone: [facility] Work Phone: Start: 08-13-2023 End: 08-13-2023 ambulatory Imad Asaad Other [employer] Other Start: 08-13-2023 Office outpatient ne w 45 minutes Imad Asaad [facility] Start: 08-12-2023 End: 08-15-2023 ambulatory [facility] Start: 07-30-2023 End: 07-31-2023 ambulatory JENNIE BOYERE [facility] Start: 07-08-2023 End: 07-08-2023 ambulatory Ania Javed Other [employer] Other Start: 07-08-2023 Office outpatient ne w 20 minutes Ania Javed [facility] Start: 07-03-2023 End: 07-03-2023 Emergency department patient visit DO Jennie Ames Work Phone: [facility] Work Phone: Start: 07-02-2023 End: 07-02-2023 Emergency department patient visit Bakari Chester [facility] Start: 06-10-2023 End: 06-10-2023 ambulatory STEPHANIEArielle KIM Facility:[facility] Start: 06-09-2023 End: 06-09-2023 Emergency department patient visit Alexis Shukla [place] Start: 06-03-2023 Refill Eileen Manzano MD Work Phone: Neurology Comment on above: Refill Request Start: 03-19-2023 End: 03-19-2023 ambulatory DATABASE MANAGEMENT SPECIALIST GANESH Bach GIL [place] Start: 03-19-2023 End: 03-19-2023 Patient encounter procedure GANESH CORDERO [facility] Start: 01-15-2023 End: 01-15-2023 Emergency department patient visit Bakari Chester [facility] Start: 01-02-2023 End: 01-02-2023 Patient encounter procedure Nakia Mcqueen [facility] Start: 12-12-2022 Refill Eileen Manzano MD Work Phone: Neurology Comment on above: Refill Request Start: 12-05-2022 End: 12-05-2022 Admission to same day surgery center Gal Das [facility] Start: 11-21-2022 End: 11-21-2022 Patient encounter procedure Gal Das [facility] Start: 11-20-2022 End: 11-20-2022 ambulatory EILEEN MANZANO Facility:[facility] Start: 11-20-2022 End: 11-20-2022 Patient encounter procedure Eileen Manzano MD Work Phone: Neurology Comment on above: Idiopathic intracran ial hypertension (Primary Dx); Depression, unspecified depression type; Primary hypertension; Hx of gastric bypass; H/O foot surgery Start: 11-03-2022 End: 11-03-2022 Patient encounter procedure Nakia Mcqueen [facility] Start: 10-30-2022 End: 10-30-2022 ambulatory STEFANIE SINGH . Facility:[facility] Start: 10-23-2022 End: 10-23-2022 Lab Drop off Gal Das [facility] Start: 10-14-2022 End: 10-14-2022 Patient encounter procedure Rita Loja [facility] Start: 09-24-2022 End: 09-24-2022 Patient encounter procedure Aimee Walker [facility] Start: 08-22-2022 End: 08-22-2022 Patient encounter procedure Rahul Salinas [facility] Start: 08-19-2022 End: 08-19-2022 ambulatory DO Jennie Ames Work Phone: [facility] Work Phone: Start: 08-19-2022 End: 08-19-2022 Patient encounter procedure DO Jennie Ames Work Phone: [facility] Start: 08-18-2022 End: 08-18-2022 ambulatory PA JACKIE MARTINEZ . Facility:[facility] Start: 08-18-2022 End: 08-18-2022 Emergency department patient visit Alexis Shukla [facility] Start: 08-16-2022 End: 08-16-[address] NEW DREW . Facility:[facility] Start: 08-12-2022 ambulatory Facility:[id number] Start: 08-11-2022 End: 08-12-2022 Evaluation and management of inpatient DO Jennie Ames Work Phone: [facility] [place] Start: 08-11-2022 End: 08-12-2022 observation encounter DO Jennie Ames Work Phone: [facility] Work Phone: Start: 08-11-2022 End: 08-11-[address] WEI PHAM Facility:[facility] Start: 08-08-2022 End: 08-08-2022 Emergency department patient visit Bakari Chester [facility] Start: 07-21-2022 End: 07-21-2022 Patient encounter procedure Aimee Walker [facility] Start: 07-19-2022 End: 07-19-[address] DOCTOR CAMARILLO Facility:[facility] Start: 07-18-2022 Telephone encounter Eduin Mckee Plastic Surgery Comment on above: Appointment Start: 06-12-2022 End: 06-12-[address] CAROLYNE RALPH Facility:[facility] Start: 06-10-2022 End: 06-10-2022 Patient encounter procedure Alexis Rivers [facility] Start: 05-30-2022 End: 05-30-2022 ambulatory GABRIELA CAMARGO Facility:[facility] Start: 05-13-2022 End: 05-13-2022 Patient encounter procedure Alexis Rivers [facility] [place] Start: 04-22-2022 End: 04-22-2022 Patient encounter procedure Aimee Walker [facility] Start: 04-21-2022 End: 04-21-2022 Patient encounter procedure Aimee Walker [facility] Start: 04-20-2022 End: 04-20-2022 Emergency department patient visit Jose Correia [facility] Start: 04-07-2022 End: 04-07-[address] LADY SANCHEZ . Facility:[facility] Start: 04-03-2022 End: 04-03-2022 Emergency department patient visit Larry Baker [facility] Start: 04-03-2022 End: 04-03-2022 Well adult monitoring check done Larry Baker [facility] Start: 02-12-2022 End: 02-12-2022 Patient encounter procedure Amee Gonzalez PA-C Work Phone: Otolaryngology Comment on above: Burning tongue (Prim masoud Dx); Irritation of oral cavity Start: 02-08-2022 End: 02-08-2022 ambulatory STEFANIE SINGH . Facility:[facility] Start: 02-06-2022 End: 02-06-2022 Patient encounter procedure Aimee Walker [facility] Start: 01-30-2022 End: 01-30-2022 ambulatory GABRIELA CAMARGO Facility:[facility] Start: 01-29-2022 End: 01-29-2022 Patient encounter procedure Aimee Walker [facility] Start: 01-27-2022 ambulatory Eduin Mckee MD Work Phone: Plastic Surgery Comment on above: questions Start: 01-10-2022 Telephone encounter Eduin marx MD Work Phone: Plastic Surgery Comment on above: Patient Question; Ap pointment Start: 01-09-2022 End: 01-09-2022 Patient encounter procedure Aimee Walker [facility] Start: 12-27-2021 Telephone encounter Eduin marx MD Work Phone: Plastic Surgery Comment on above: Orders Scheduling Start: 11-16-2021 End: 11-17-[address] WILEY ZABALA Facility:[facility] Start: 02-04-2021 End: 02-06-2021 Subsequent hospital visit by physician [facility] Cat Scan Room [facility] CT Scan Comment on above: Omental infarction ( HCC) Start: 01-30-2021 End: 02-01-2021 Evaluation and management of inpatient Berry Lawson MD Work Phone: [facility] Ortho/Med Surg Comment on above: Surgery, elective (P rimary Dx); Omental infarction (HCC) Start: 01-30-2021 End: 01-30-2021 Emergency department patient visit David Nash MD Work Phone: [facility] Comment on above: Generalized abdomina l [...] Start: 01-03-2021 End: 01-04-2021 ambulatory JENNIE AMES [facility] Start: 01-03-2021 End: 01-03-2021 Patient encounter status Staz Schedule STAZ Covid Scre ening Start: 01-03-2021 End: 01-03-2021 Subsequent hospital visit by physician Edgardo Mcclendon Screening Schedule EDGARDO Mcclendon Screening Comment on above: Preop testing (Prima ry Dx) Start: 12-24-2020 End: 12-28-2020 Subsequent hospital visit by physician Christiane Salinas Xr [facility] Comment on above: Arrived Start: 11-01-2020 End: 11-03-2020 Subsequent hospital visit by physician Chaitanya Jett Radiologist [facility] Comment on above: Gastroesophageal ref lux disease with esophagitis without hemorrhage Start: 10-26-2020 End: 10-26-2020 Subsequent hospital visit by physician Lyle Mcclendon Screening Schedule LYLE Mcclendon Screening Comment on above: Preoperative testing Start: 09-28-2020 End: 09-28-2020 Subsequent hospital visit by physician Gamaliel Harris Work Phone: [facility] [place] Start: 09-24-2020 End: 09-28-2020 Subsequent hospital visit by physician Chaitanya Mcclendon19 Pat Screening Schedule LYLE PRE ADMIT Comment on above: Preoperative testing Start: 11-01-2015 Patient encounter procedure LINDY COTE Facility:[facility] Procedures Date Procedure Procedure Detail Performing Clinician Start: 03-08-2024 H/O: hysterectomy History of hysterectomy Elia Baires DO Work Phone: Start: 03-08-2024 3d rendering w/interp&postproc diff work station Samekeshav Grossman MD Work Phone: Start: 03-08-2024 Mri abdomen w/o & w/contrast material Leonela Grossman MD Work Phone: Start: 01-04-2024 Drug tst prsmv instr mnt chem analyzers pr date Elia Baires DO Work Phone: Start: 12-10-2023 Plain chest X-ray DO Azeb Ames Work Phone: Start: 08-15-2023 Computed tomography of abdomen and pelvis with contrast DO Jennie Ames Work Phone: Start: 12-05-2022 Hysterectomy Gal Tomast en Start: 08-12-2022 MRI of head DO Jennie carlos Work Phone: Start: 08-12-2022 MRI venography DO Jennie xie Work Phone: Start: 02-04-2021 Ct abdomen & pelvis w/contrast material Gamaliel Harris DO Work Phone: Start: 02-01-2021 BASIC METABOLIC PANE L W/ REFLEX TO MG FOR LOW K Ruiz Wisam DO Work Phone: Start: 02-01-2021 Blood count [...] Phone: Start: 01-30-2021 Assay of lipase David Nsah MD Work Phone: Start: 01-30-2021 Lactate [Moles/volum e] in Serum or Plasma David Nash MD Work Phone: Start: 01-08-2021 Radiologic exam esop hagus single contrast study Gamaliel Harris DO Work Phone: Start: 01-08-2021 Basic metabolic pane l calcium total Gamaliel Harris [employer] Work Phone: Start: 01-07-2021 Basic metabolic pane l calcium total Gamaliel Harris [employer] Work Phone: Start: 01-07-2021 End: 01-07-2021 Laps gstr rstcv px w/byp tian-en-y limb <150 cm Gamaliel Harris [employer] Work Phone: Start: 01-07-2021 Urine test visual color cmprsn meths Gamaliel Harris [employer] Work Phone: Start: 12-24-2020 Assay of nicotine Enmanuel Gastelum [employer] Work Phone: Start: 12-24-2020 Basic metabolic pane l calcium total Gamaliel Harris [employer] Work Phone: Start: 12-24-2020 Radiologic exam ches t 2 views Gamaliel Harris Work Phone: Start: 12-24-2020 Ecg routine ecg w/le ast 12 lds trcg only w/o i&r Gamaliel Harris [employer] Work Phone: Start: 12-24-2020 EKG REPORT Hpf Scanni ng Start: 11-01-2020 Radex upper gi w/wo glucagon/delay imges w/o kub Gamaliel Harris Work Phone: Start: 09-24-2020 COVID-19 Obdulio Jau [...] Visit Annual PCP Team Chronic Disease Visit [facility] Start: 03-08-2025 BP Controlled (<130/80) BP Controlled (<130/80) [facility] Start: 03-08-2025 Urine microalbumin profile DTaP,Tdap,Td Vaccine (1 - Tdap) [facility] Comment on above: Postponed from 12/18/2007 (Declined at t his time) Start: 01-03-2025 Annual PCP Team Chronic Disease Visit Annual PCP Team Chronic Disease Visit [facility] Start: 08-05-2024 End: 08-05-2024 ambulatory [facility] Comment on above: Fhx of pancreatic cancer, Phx of pancrea tic mass Action taken: Marked in [employer] for Schedulers Start: 05-24-2024 End: 05-24-2024 Patient encounter procedure 05/24/2024 11:15 AM EDT Office Visit Endocrinology [address] [place] [address] Austin Leon APRN.OBEDIENCE TRAINER [address] [place], [place] [id number] Class 1 obesity due to excess calories without serious comorbidity with body ma Endocrinology Comment on above: Class 1 obesity due to excess calories w ithout serious comorbidity with body ma Start: 05-15-2024 Influenza vaccination [facility] Start: 03-01-2024 End: 03-01-2024 Patient encounter procedure 03/01/2024 11:20 AM EDT Appointment Radiology [address] [place] [address] MRI Panc/[facility] Comment on above: MRI Panc/Tanmay [facility] Start: 01-06-2024 End: 01-06-2024 ambulatory 01/06/2024 8:30 AM EDT Results Only [facility] [address] [place] [address] [facility] Start: 01-04-2024 End: 04-04-2024 CBC panel - Blood by Automated count COMPLETE BLOOD COUNT Lab Routine Routine health maintenance Expected: 01/04/2024, Expires: 04/04/2024 [facility] Work Phone: Comment on above: Expected: 01/04/2024, Expires: Start: 01-04-2024 End: 04-04-2024 Comprehensive metabolic 2000 panel - Serum or Plasma COMPREHENSIVE METABOLIC PANEL Lab Routine Routine health maintenance Expected: 01/04/2024, Expires: 04/04/2024 [facility] Comment on above: Expected: 01/04/2024, Expires: Start: 01-04-2024 End: 04-04-2024 Hemoglobin A1c in Blood HEMOGLOBIN A1C Lab Routine Routine health maintenance Expected: 01/04/2024, Expires: 04/04/2024 [facility] Comment on above: Expected: 01/04/2024, Expires: Start: 01-04-2024 End: 04-04-2024 Hepatitis C virus Ab [Presence] in Serum HEPATITIS C ANTIBODY IA WITH CONFIRMATION Lab Routine Routine health maintenance Expected: 01/04/2024, Expires: 04/04/2024 [facility] Comment on above: Expected: 01/04/2024, Expires: Start: 01-04-2024 End: 04-04-2024 HIV 1+2 Ab [Presence] in Serum or Plasma by Immunoassay HIV 1/2 COMBO WITH REFLEX TO DIFFERENTIATION Lab Routine Routine health maintenance Expected: 01/04/2024, Expires: 04/04/2024 [facility] Comment on above: Expected: 01/04/2024, Expires: Start: 01-04-2024 End: 04-04-2024 Lipid 1996 panel - Serum or Plasma LIPID PANEL BASIC Lab Routine Routine health maintenance Expected: 01/04/2024, Expires: 04/04/2024 [facility] Comment on above: Expected: 01/04/2024, Expires: Start: 12-10-2023 [facility] Start: 09-18-2023 End: 09-18-2023 Egd transoral biopsy single/multiple EGD BIOPSY Gastroesophageal reflux disease, unspecified whether esophagitis present Obesity (BMI 30-39.9) 09/18/2023 8:14 AM [facility] Start: 05-15-2023 COVID-19 Vaccine () COVID-19 Vaccine () [facility] Start: 05-15-2023 Influenza vaccination Influenza Vaccine (#1) [facility] Start: 04-14-2023 Influenza vaccination Flu vaccine (#1) [facility] Start: 08-19-2022 Cerebrospinal fluid culture [facility] Start: 08-19-2022 End: 08-19-2022 [facility] Start: 08-12-2022 [facility] Start: 08-12-2022 Glucose [Mass/volume] in Cerebral spinal fluid [facility] Start: 08-12-2022 Protein [Mass/volume] in Cerebral spinal fluid [facility] Start: 08-12-2022 [facility] Start: 08-11-2022 Hospital admission [facility] Start: 08-11-2022 Referral to neurologist [facility] Start: 08-11-2022 [facility] Start: 05-15-2022 Influenza vaccination [facility] Start: 09-29-2021 COVID-19 VACCINE (3 - Booster for Pfizer series) COVID-19 VACCINE (3 - Booster for Pfizer series) [facility] Start: 09-14-2021 DEPRESSION ASSESSMENT DEPRESSION ASSESSMENT [facility] Start: 06-24-2021 COVID-19 VACCINE (3 - Booster for Pfizer series) COVID-19 VACCINE (3 - Booster for Pfizer series) [facility] Start: 06-24-2021 Covid-19 Vaccine (3 - Pfizer series) Covid-19 Vaccine (3 - Pfizer series) [facility] Start: 03-06-2021 End: 03-06-2021 Patient encounter procedure 03/06/2021 Office Visit Bariatrics Gamaliel Harris DO [address] [place] [address] [facility] Invasive Bariatric Surg Start: 02-20-2021 End: 02-20-2021 Patient encounter procedure 02/20/2021 Office Visit BariatricGamaliel Robledo DO [address] [place] [address] [facility] Start: 01-18-2021 End: 01-18-2021 Office Visit 01/18/2021 Office Visit BariatricGamaliel Robledo DO [address] [place] [address] [facility] Invasive Bariatric Surg Start: 01-07-2021 End: 01-07-2021 Hospital Encounter [facility] Comment on above: XI LAPAROSCOPIC ROBOTIC GASTRIC BYPASS R OUX-EN-Y, LIVER BIOPSY, EGD- GI UNIT SCHEDULED. Start: 01-03-2021 End: 01-03-2021 Office Visit [facility] Invasive Bariatric Surg Comment on above: Arrived Start: 12-31-2020 End: 12-31-2021 COVID-19 COVID-19 Lab Routine Preop testing Expected: 12/31/2020, Expires: 12/31/[address] [facility] Work Phone: Comment on above: Expected: 12/31/2020, Expires: Start: 11-21-2020 End: 11-21-2020 Office Visit 11/21/2020 Office Visit Bariatrics Ganesh Cordero, RIBBON LAP MACHINE TENDER - OBEDIENCE TRAINER [address] [place] [id number] [facility] Start: 11-01-2020 End: 11-01-2020 Appointment 11/01/2020 Appointment Radiology Radiologist, [facility] Start: 10-24-2020 End: 10-24-2020 Office Visit [facility] Start: 09-26-2020 Annual Wellness Visit (AWV) Annual Wellness Visit (AWV) [facility] [place], [place] Start: 2018 HPV TESTING HPV TESTING [facility] Start: 2018 Screening for malignant neoplasm of cervix [facility] Start: 2009 PAP TESTING PAP TESTING [facility] Start: 2009 Screening for malignant neoplasm of cervix [facility] Start: 12-18-2007 DTaP/Tdap/Td vaccine (1 - Tdap) DTaP/Tdap/Td vaccine (1 - Tdap) [facility] Start: 12-18-2007 Urine microalbumin profile [facility] Start: 2006 ANNUAL PCP TEAM CHRONIC DISEASE VISIT ANNUAL PCP TEAM CHRONIC DISEASE VISIT [facility] Start: 2006 BP CONTROLLED (<130/80) BP CONTROLLED (<130/80) [facility] Start: 2006 HEPATITIS C SCREENING HEPATITIS C SCREENING [facility] Start: 2006 Hepatitis C screening [facility] Start: 2006 HIV SCREENING HIV SCREENING [facility] Start: 2006 HIV screening HIV Screening [facility] Start: 2004 COVID-19 Vaccine (1) COVID-19 Vaccine (1) [employer] Phone: Start: 12-18-2003 HIV screening HIV screen [facility] Start: 2000 Adult depression screening assessment DEPRESSION SCREENING [facility] Start: 2000 COVID-19 Vaccine (1) COVID-19 Vaccine (1) [employer] Phone: Start: 2000 Depression Monitoring [facility] Start: 12-10-2000 Hepatitis B Vaccine (2 of 3 - 3-dose series) Hepatitis B Vaccine (2 of 3 - 3-dose series) [facility] Start: 1994 PNEUMOCOCCAL (1 - PCV) PNEUMOCOCCAL (1 - PCV) [facility] Start: 1994 Pneumococcal 0-64 years Vaccine (1 - PCV) Pneumococcal 0-64 years Vaccine (1 - PCV) [facility] Start: 1994 Pneumococcal vaccination [facility] Start: 1989 Varicella vaccine (1 of 2 - 2-dose childhood series) Varicella vaccine (1 of 2 - 2-dose childhood series) [facility] Start: 1988 HEPATITIS B (1 of 3 - 3-dose series) HEPATITIS B (1 of 3 - 3-dose series) [facility] Start: 1988 Hepatitis B Vaccine (1 of 3 - 3-dose series) Hepatitis B Vaccine (1 of 3 - 3-dose series) [facility] Start: 1988 Hepatitis C screening Hepatitis C screen [facility] [place], [place] Bacteria identified in Unspecified specimen by Aerobe culture [facility] Work Phone: Bacteria identified in Unspecified specimen by Anaerobe culture [facility] Work Phone: Basic Metabolic Pane l w/ Reflex to MG Basic Metabolic Panel w/ Reflex to MG Lab Routine Daily until discontinued starting 02/01/2021, [address] [facility] Work Phone: Comment on above: Daily until discontinued starting 2020, 1 completed End: 09-18-2023 Blood glucose - POCT Blood glucose - POCT Point of Care Testing Routine One Time for 1 Occurrences starting 09/18/2023 until 09/18/2023 [facility] Comment on above: One Time for 1 Occurrences starting 01/2024 until 09/18/2023 CANNABINOID CONF, UR CANNABINOID CONF, UR Lab Routine Panic disorder 01/04/2024 10:20 AM EDT [facility] Cell count, cerebrospinal fluid [facility] Work Phone: Cerebrospinal fluid examination [facility] Work Phone: Continuous pulse oximetry Pulse oximetry, continuous Respiratory Care Routine Every 4hr until discontinued starting 01/07/2021 [facility]: Comment on above: Every 4hr until discontinued starting End: 10-26-2020 COVID-19 COVID-19 Lab Routine Preoperative testing 1 Occurrences starting 10/26/2020 until 10/26/2020 [employer] Phone: Comment on above: 1 Occurrences starting 10/26/2020 until 10/26/2020 COVID-[address] [facility] Work Phone: End: 01-03-2021 COVID-19 COVID-19 Lab Routine Preop testing 1 Occurrences starting 01/03/2021 until 01/03/2021 [facility] [employer] Work Phone: Comment on above: 1 Occurrences starting 01/03/2021 until 01/03/2021 Evaluation of cerebrospinal fluid [facility] Work Phone: Fluid sample volume measurement [facility] Work Phone: Glucose [Mass/volume ] in Cerebral spinal fluid [facility] Work Phone: End: 09-18-2023 INITIATE PACU OXYGEN THERAPY PROTOCOL Initiate PACU Oxygen Therapy Protocol Respiratory Care Routine Continuous until discontinued starting 09/18/2023 [facility] Comment on above: Continuous until discontinued starting 0 09/18/2023 Meningitis+Encephali ti s pathogens DNA and RNA panel - Cerebral spinal fluid by JOSÉ MIGUEL with non-probe detection [facility] [email or web address] Work Phone: Microscopic observation [Identifier] in Unspecified specimen by Gram stain [facility] [email or web address] Work Phone: End: 04-07-2025 MR Breast - left WO and W contrast IV MRI BREAST BX WO/W IVCON LEFT Radiology Routine Mass of upper outer quadrant of left breast 1 Occurrences starting 03/08/2024 until 04/07/2025 [facility] Work Phone: Comment on above: 1 Occurrences starting 03/08/2024 until 04/07/2025 End: 12-20-2023 Mra head w/o & w/contrast material MRV BRAIN WO/W IVCON Radiology Routine Idiopathic intracranial hypertension 1 Occurrences starting 11/20/2022 until 12/20/2023 [facility] Work Phone: Comment on above: 1 Occurrences starting 11/20/2022 until 12/20/2023 Nebulizer therapy [facility]N Treatment Respiratory Care Routine TID until discontinued starting 01/07/2021 [employer] Work Phone: Comment on above: TID until discontinued starting 01/08/20 21 Nucleated cells [#/volume] in Cerebral spinal fluid by Manual count [facility] Work Phone: Oxygen therapy [Minimum Data Set] [employer] [facility] Comment on above: Daily until discontinued starting 2020 Daily until disconti nued starting 01/07/2021 Daily until disconti nued starting 01/31/2021 Oxygen therapy [Minimum Data Set] Initiate Oxygen Therapy Protocol Respiratory Care Routine As Needed until discontinued starting 09/18/2023 [employer] Work Phone: Comment on above: As Needed until discontinued starting Patient Education [facility] Work Phone: Patient referral [facility] Work Phone: Phase I & II - meter ed glucose Phase I & II - metered glucose Point of Care Testing Routine As Needed until discontinued starting 09/28/2020 [employer] [facility] Comment on above: As Needed until discontinued starting End: 09-28-2020 , urine POCT , urine POCT Point of Care Testing Routine One Time for 1 Occurrences starting 09/28/2020 until 09/28/2020 [employer] [facility] Comment on above: One Time for 1 Occurrences starting 09/14 until 09/28/2020 End: 09-18-2023 , urine POCT , urine POCT Point of Care Testing Routine One Time for 1 Occurrences starting 09/18/2023 until 09/18/2023 [facility] [employer] Comment on above: One Time for 1 Occurrences starting 01/2024 until 09/18/2023 Protein [Mass/volume ] in Cerebral spinal fluid [facility] Work Phone: Red blood cell count [facility] Work Phone: SPECIMEN VALIDITY, URINE SPECIMEN VALIDITY, URINE Lab Routine Panic disorder 01/04/2024 10:20 AM EDT [facility] Spirometry panel Incentive pete metry Respiratory Care Routine Every 2hr while awake until discontinued starting 01/07/[address] [facility] Work Phone: Comment on above: Every 2hr while awake until discontinued starting 01/07/2021 Surgical Pathology Surgical Path ology Lab Routine Release Upon Ordering for 1 Occurrences starting 09/28/[address] [facility] [place], [place] Comment on above: Release Upon Ordering for 1 Occurrences starting 09/28/2020 [facility] Immunizations Immunization Date Immunization Notes Care Provider Fa cili 04-29-2021 SARS-CoV-2 (COVID-19 ) mRNA BNT-162b2 vax Aimee [facility] 04-08-2021 SARS-CoV-2 (COVID-19 ) mRNA BNT-162b2 vax Aimee [facility] 07-23-2020 influenza virus vaccine, unspecified formulation Eileen Manzano MD Work Phone: [facility] 07-09-2020 influenza nasal, unspecified formulation Elia Baires DO Work Phone: [facility] 07-09-2020 influenza virus vaccine, unspecified formulation Aimee [facility] 07-09-2020 influenza, injectable, quadrivalent, preservative free Elia Baires DO Work Phone: [facility] 11-12-2000 hepatitis B vaccine, pediatric or pediatric/adolescent dosage Elia Baires DO Work Phone: [facility] 11-12-2000 measles, mumps and rubella virus vaccine Elia Baires DO Work Phone: [facility] NEGATED: Highlighted row has not occurred!07-21-2022 influenza virus vaccine, unspecified formulation Aimee [facility] Payers Date Payer Category Payer Unknown 2023 Medicare [id number] 2021 Medicaid MEDICAID [facility] MEDICAID [id number] 2021-Present [phone] [address] [place] [address] Medicaid [id number] 2021 Medicaid [id number] 2021 Medicare HUMANA MEDICARE HUMANA MEDICARE PPO [id number] 2021-Present [phone] [address] [address] [place] [address] PPO [id number] 2021 Medicare [id number] [id number] .[id number] 2020 Medicare [id number] 1.2.840.692978.1.13.239.2.7 .[id number] 1988 Unknown [id number] 2.16.840.1.855881.3.579.2.7 32 1988 Unknown [id number] 2.16.840.1.123946.3.579.2.1 77 1988 Unknown [id number] 2.16.840.1.821052.3.579.2.3 56 1988 Unknown [id number] 2.16.840.1.587132.3.579.2.5 93 1988 Unknown [id number] 2.16.840.1.265293.3.579.2.5 93 1988 Unknown [id number] 2.16.840.1.862730.3.579.2.5 93 1988 Unknown [id number] 2.16.840.1.043892.3.579.2.5 93 1988 Unknown [id number] 2.16.840.1.409345.3.579.2.5 93 1988 Unknown [id number] 2.16.840.1.438936.3.579.2.5 93 1988 Unknown [id number] 2.16.840.1.948171.3.579.2.5 93 1988 Unknown [id number] 2.16.840.1.046203.3.579.2.5 93 1988 Unknown [id number] 2.16.840.1.618087.3.579.2.5 1988 Unknown [id number] 2.16.840.1.172475.3.579.2.5 1988 Unknown [id number] 2.16.840.1.130554.3.579.2.5 1988 Unknown [id number] 2.16.840.1.017036.3.579.2.1 1988 Unknown [id number] 2.16.840.1.214979.3.579.2.1 1988 Unknown [id number] 2.16.840.1.850073.3.579.2.1 1988 Unknown [id number] 2.16.840.1.800911.3.579.2.1 74 1988 Unknown [id number] 2.16.840.1.031908.3.579.2.1 74 1988 Unknown [id number] 2.16.840.1.003747.3.579.2.1 75 1988 Unknown [id number] 2.16.840.1.675453.3.579.2.1 75 1988 Unknown [id number] 2.16.840.1.140962.3.579.2.7 27 1988 Unknown [id number] 2.16.840.1.305112.3.579.2.7 27 1988 Unknown [id number] 2.16.840.1.472935.3.579.2.7 27 1988 Unknown [id number] 2.16.840.1.385347.3.579.2.7 27 1988 Unknown [id number] 2.16.840.1.151054.3.579.2.7 27 1988 Unknown [id number] 2.16.840.1.115183.3.579.2.7 27 1959 Medicaid [id number] 1.2.840.072778.1.13.239.2.7 .3.411858.315 1959 Private Health Insurance [id number] 1959 Self-pay [id number] Medicare Medicare [id number] Private Health Insurance [employer] MCR PFFS M [id number] Unknown [id number] 2.16.840.1.191920.3.579.2.5 31 Unknown [id number] 2.16.840.1.069471.3.579.2.5 31 Unknown [id number] 2.16.840.1.148892.3.579.2.5 31 Unknown [id number] 2.16.840.1.388540.3.579.2.5 31 Unknown [id number] 2.16.840.1.592803.3.579.2.5 31 Unknown [id number] 2.16.840.1.235857.3.579.2.5 31 Unknown [id number] 2.16.840.1.981863.3.579.2.5 31 Social History Date Type Detail Facility Start: 09-28-2020 End: 01-29-2022 Tobacco smoking status NHIS Former smoker [place] Start: 08-12-2022 End: 12-31-2023 History of tobacco use Current smoker [place] Start: 09-28-2020 End: 03-08-2024 Tobacco use and exposure Never used [place] Start: 09-28-2020 End: 03-08-2024 Alcohol intake Current drinker of alcohol (finding) [place] Start: 09-28-2020 End: 07-03-2022 History SDOH Alcohol Frequency 1 [place] Start: 09-28-2020 Alcohol Comment rare [place] Start: 1990 Sex Assigned At Not on file [place] Start: 12-16-2021 End: 02-06-2022 Exposure to SARS-CoV-2 (event) Not sure [place] End: 03-14-2020 History of tobacco use Cigarette Smoker [facility] [employer] Phone: Start: 09-28-2020 Alcohol Comment rare [facility] [employer] Phone: Start: 12-26-2021 End: 03-08-2024 Tobacco smoking status KSIS Smokes tobacco daily [facility] Start: 12-26-2021 End: 02-27-2023 Cigarettes smoked current (pack per day) - Reported 1 [facility] Start: 03-18-2010 History SDOH Alcohol Comment beer and wine once a month [facility] Start: 07-01-2021 End: 11-03-2022 Tobacco smoking status Heavy tobacco smoker (finding) [facility] Tobacco smoking status Never [facility] Start: 07-03-2022 End: 02-27-2023 Sex Assigned At Female HarpreetVinny [facility] Start: 1990 Sex Assigned At Female [facility] Start: 07-03-2022 History SDOH Alcohol Frequency 5 [facility] Start: 07-03-2022 History SDOH Alcohol Std Drinks 4 [facility] Start: 07-03-2022 History SDOH Social Connections Get Together 2 [facility] Start: 07-03-2022 History SDOH Social Connections Living 3 [facility] Do you belong to any clubs or organizations such as moravian groups, unions, fraternal or athletic groups, or school groups? No [facility] Are you now , , , , never or living with a partner? [facility] How often to you hav e a drink containing alcohol? 4 or more times a week [facility] How many standard dr inks containing alcohol do you have on a typical day? 7 to 9 [facility] How often do you hav e 6 or more drinks on 1 occasion? Daily or almost daily [facility] How hard is it for y ou to pay for the very basics like food, housing, medical care, and heating Not very hard [facility] Do you feel stress - tense, restless, nervous, or anxious, or unable to sleep at night because your mind is troubled all the time - these days [OSQ] To some extent [facility] (I/We) worried wheth er (my/our) food would run out before (I/we) got money to buy more. Sometimes true [facility] The food that (I/we) bought just didn't last, and (I/we) didn't have money to get more. Never true [facility] Start: 01-13-2022 Gender identity Identifies as female gender (finding) [facility] Start: 02-06-2022 Sexual orientation Heterosexual (finding) [facility] How often to you hav e a drink containing alcohol? Never [facility] Start: 12-10-2023 Tobacco smoking status NHIS Never smoked tobacco (finding) [facility] Do you feel stress - tense, restless, nervous, or anxious, or unable to sleep at night because your mind is troubled all the time - these days [OSQ] Only a little [facility] Functional Status Date Assessment Result Facility 03-08-2024 Functional Status N/A [facility] 07-02-2023 Functional Status N/A [facility] 01-15-2023 Functional Status N/A [facility] 11-21-2022 Functional Status No [facility] 11-03-2022 Functional Status N/A [facility] 09-24-2022 Functional Status N/A [facility] 08-22-2022 Functional Status N/A [facility] 08-18-2022 Functional Status N/A [facility] 08-12-2022 Functional status Patient at Baseline [facility] Work Phone: 08-08-2022 Functional Status N/A [facility] 07-21-2022 Functional Status N/A [facility] 04-21-2022 Functional Status N/A [facility] 04-20-2022 Functional Status N/A [facility] 04-03-2022 Functional Status N/A [facility] Mental Status Date Assessment Result Facility 08-12-2022 Cognitive function Cognitive Sta tus Patient at Baseline [facility] Work Phone: Clinical Notes 12-24-2020 to 04-26-2024 Lauren Capellan LPN - 04/26/2024 3:43 PM Sofia Ballard RN - 03/08/2024 10:00 AM Mirlande Long MRI Tech - 03/08/2024 10:00 AM EDTPatient InstructionsPatient Instructions Note Date & Type Note Facility 04-26-2024 History of Present illness Narrative Outreach message sent documented in this encounter [facility] 04-26-2024 Note HNO ID: [id number] Author: LAUREN CAPELLAN LPN Service: ? Author Type: LICENSED NURSE Type: Progress Notes Filed: 04/26/2024 15:43 Note Text: Outreach message sent [facility] 04-26-2024 Note Patient Outreach ([facility]) SHAZIA CHOU ([id number]) 1990 F Date Time Provider Department 04/26/24 ELIA BAIRES [facility] During your visit today, we recorded the following information about you: Lauren Capellan LPN 04/26/2024 3:43 PM Signed Outreach message sent Allergies As of Date: 04/26/2024 Noted Allergy Reaction ARIPIPRAZOLE 08/19/2022 1 - Mental Status Change 14 - Other: See Comments 16 - Unknown BUPROPION 07/16/2021 16 - Unknown COCONUT 11/20/2022 7 - Swelling Date Reviewed: 03/08/2024 Reviewed by: Sofia Benavidez, MARCO - Fully Assessed Prescriptions as of 04/26/2024 - naltrexone 50 mg tablet Take 1 tablet by mouth once daily. - varenicline (CHANTIX) 0.5 mg (11)- 1 mg (42) tablet Take 0.5 mg by mouth once daily on Days 1 through 3, THEN 0.5 mg twice daily on Days 4 through 7, THEN 1 mg twice daily on Day 8 and thereafter - lamoTRIgine (LAMICTAL) 25 mg tablet Take 75 mg by mouth once daily. - DULoxetine (CYMBALTA) 60 mg capsule Take 1 capsule by mouth two times a day. - triamcinolone acetonide (KENALOG) 0.1 % cream Apply to affected area two times a day. - acetaZOLAMIDE (DIAMOX) 250 mg tablet Take 250 mg by mouth two times a day as needed (For headaches; intracranial hypertension). - clonazePAM (KLONOPIN) 0.5 mg tablet Take 1 tablet by mouth two times a day as needed for anxiety (Panic attacks) for up to 30 days. - traZODone (DESYREL) 50 mg tablet Take 50 mg by mouth daily at bedtime. - mbtzffkxbksv-hwf-wodz-FA-vit K (BARIATRIC MULTIVITAMINS) 45 mg iron- 800 mcg-120 mcg cap Take by mouth. Problem List As Of Date 04/26/2024 Noted Resolved Poor growth, affecting management of moth*07/03/2008 03/08/2024 Idiopathic intracranial hypertension [G93.2] 11/20/2022 Primary hypertension [I10] 11/20/2022 03/08/2024 Depression [F32.A] 11/20/2022 Hx of gastric bypass [Z98.84] 11/20/2022 H/O foot surgery [Z98.890] 11/20/2022 Bipolar affective disorder in remission (HCC) [*06/10/2023 Obesity, Class III, BMI 40-49.9 (morbid obesity*08/31/2023 01/04/2024 Borderline personality disorder (HCC) [F60.3] 01/04/2024 Chronic alcoholism in remission (HCC) [F10.21] 01/04/2024 Anxiety disorder, unspecified [F41.9] 01/31/2022 Left breast mass [N63.20] 03/08/2024 History of nicotine use [Z87.891] 05/23/2020 History of substance abuse (HCC) [F19.11] 01/31/2024 Cyst of pancreas [K86.2] 08/13/2023 Plantar fasciitis [M72.2] 03/08/2024 03/08/2024 Family history of pancreatic cancer [Z80.0] 03/08/2024 Family history of cancer [Z80.9] 03/08/2024 History of hysterectomy [Z90.710] 03/08/2024 Panic disorder [F41.0] 03/08/2024 Encounter Status:Closed by LAUREN CAPELLAN on 04/26/24 [facility] 03-08-2024 Hospital Discharge instructions Patient Education 03/08/2024 [...] Follow these instructions at home: Medicines Take sfxq-hlk-gczuthx and prescription medicines only as told by your health care provider. Ask your health care provider if the medicine prescribed to you: ?Requires you to avoid driving or using heavy machinery. ?Can cause constipation. You may need to take these actions to prevent or treat constipation: ?Drink enough fluid to keep your urine pale yellow. ?Take zggo-jkz-jddeths or prescription medicines. ?Eat foods that are [...] provider. Document Revised: 12/08/2022 Document Reviewed: 01/24/2020 [employer] Patient Education 2022 [employer]. 03/08/2024 15:36:59 Head Injury, Adult Head Injury, [...] Ask your health care provider for a uslq-jx-umgy plan for gradually returning to activities. Ask [...] your friends, family, a trusted colleague, and beef cattle farm worker about your injury, symptoms, and restrictions. Have them watch for any new or worsening problems. General instructions Take mvmc-nyl-pxilmrh and prescription medicines only as told by [...] provider. Document Revised: 07/13/2020 Document Reviewed: 07/13/2020 [employer] Patient Education 2022 [employer] Inc. 03/08/2024 15:36:59 Muscle Strain Muscle Strain [...] is not too tight. General instructions Take vohx-txi-agtdbkp and prescription medicines only as told by [...] provider. Document Revised: 11/18/2021 Document Reviewed: 11/18/2021 [employer] Patient Education 2022 [employer]. Follow Up Care 03/08/2024 13:07:25 With:David Zazueta Address: [address] [address], [address] [place] [phone] Business (1) When:03/11/2024 15:24:14 With:Jennie Ames Address: [address] , [facility] [address] [place] [address]- Business (1) When:Within 3 Day(s) [facility] 03-08-2024 History of Present illness Narrative [...] PATIENT PRESENTS WITH AN IMPLANTABLE OR ATTACHED MASTER TAX ADVISOR: No RADIOLOGY DEPARTMENT: MR; Exam(s) Completed: Body: Pancreas/Biliary PERIPHERAL IV DATA: Site assessment: Clean,Dry and Intact, Site disposition Discontinued SIGNED BY: KING Tovar March 08, 2024 10:35 AM documented in this encounter [facility] 03-08-2024 Note HNO ID: [id number] Author: MIRLANDE DIAZ MRI Tech Service: Radiology Author Type: Boatbuilder Apprentice Wood Type: Progress Notes Filed: 03/08/2024 10:36 Note [...] PATIENT PRESENTS WITH AN IMPLANTABLE OR ATTACHED MASTER TAX ADVISOR: No RADIOLOGY DEPARTMENT: MR; Exam(s) Completed: Body: Pancreas/Biliary PERIPHERAL IV DATA: Site assessment: Clean,Dry and Intact, Site disposition Discontinued SIGNED BY: Mrilande Diaz canceling and cutting control clerk March 08, 2024 10:35 AM [facility] 03-08-2024 Note HNO ID: [id number] Author: SOFIA BENAVIDEZ RN Service: Nursing Author [...] DATE: March 08, 2024 TIME: 10:01 AM [facility] 03-08-2024 Instructions Elia Baires DO - 03/08/2024 8:47 AM EDT 1) Schedule appointment with Austin Mata to discuss Adipex. 2) Schedule MRI of breast 3) I can refill the klonopin as needed. 4) Try steroid as needed twice daily 5) Follow-up in [address] Villafana to establish care documented in this encounter [facility] 03-08-2024 Note HNO ID: [id number] Author: ELIA BAIRES, DO Service: ? Author Type: Physician Type: [...] give her a referral to colleague Austin Leno but could not guarantee he would be [...] was able to establish [facility]. Says they stopped her Rexulti and switch to Lamictal 75 mg daily. Says this has dramatically improved her symptoms. Currently taking duloxetine 60 mg twice daily and trazodone 50 mg at bedtime. She says that she has only needed to use her clonazepam a few times a week. H (more content not included)... [facility] 03-08-2024 History of Present illness Narrative [...] was able to establish with psychiatry at [facility]. Says they stopped her Rexulti and switch [...] updated today in the History tab of [employer]. REVIEW OF SYSTEMS: All other reviewed and [...] Elia Baires DO documented in this encounter [facility] 01-04-2024 Instructions Elia Baires DO - 01/04/2024 10:16 AM EDT 1) Give urine sample today. 2) Placed lab orders. Fast for 12 hours then get labs. 3) I would follow-up with your psychiatrist in January 4) Physical in 1-2 months. documented in this encounter [facility] 01-04-2024 Note HNO ID: [id number] Author: ELIA BAIRES DO Service: ? Author [...] She says that she is originally from [facility] however came up to here today to [...] new psychiatrist at [facility] in [place]. She also sees a counselor weekly. Current [...] No psychosis or maryam. Dr. Elia Baires, [place] 01-04-2024 History of Present illness Narrative ASSESSMENT/PLAN: [...] She says that she is originally from [facility] [place] however came up to here today to [...] new psychiatrist at [facility] in [place]. She also sees a counselor weekly. Current [...] Elia Baires DO documented in this encounter [facility] 09-18-2023 Hospital Discharge instructions Gamaliel Harris [...] questions, PLEASE call your doctor or the [facility] at documented in this encounter [facility] 09-16-2023 History of Present illness Narrative PAT phone call for /EGD completed with pt. Date/time/location (entrance C) of surgery/procedure verified with pt. NPO after MN status verified with pt. 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 Instructed pt to take a shower the AM of surgery/procedure and to avoid lotions, creams, jewelry. Encouraged pt to avoid artificial nails and/or nailpolish. Instructed pt to take BP meds with a small sip of water prior to procedure/surgery. documented in this encounter [facility] 09-15-2023 Note HNO ID: [id number] Author: Rahul Godinez DO Service: ? Author Type: Fellow Type: Progress Notes Filed: 09/15/2023 12:00 PM Note Text: [facility] Multidisciplinary Rdaqcc-Dkdnxumwr-Xsouxoi AND Upper GI Case Conference -- Consensus Note -- Conference Date: 09/15/2023 Case reviewed with physicians from GI, Surgery, AND Radiology services: -- Surgeons - Cristal Rodriguez Augustin, Naffouje, Visioni, and Gaurang -- Gastroenterologists - Brando Sinclair -- Radiologist - [place] Issue(s) Question(s): 32 year old female with [...] months Rahul Godinez DO HPB Surgical Fellow [facility] 08-13-2023 Evaluation note Encounter Date Diagnosis Assessment Notes Jul, Pancreatic cyst (ICD-10 - K86.2) [facility] Other 10-25-2023 Evaluation note* Encounter Date Diagnosis [...] stop smoking. Jun, Smoker (ICD-10 - F17.200) [facility] Other 09-27-2023 NoteHNO ID: [id number] Author: Eileen Manzano MD Service: ? Author Type: Physician Type: Progress Notes Filed: 06/10/2023 3:39 PM Note Text: [facility] General Neurology Follow Up / Established Virtual Visit I have communicated my name and active licensure. The patient's identity and physical location were verified at the time of this visit. Either the patient or their legal administrative representative has been informed of the risks [...] due to congenital deformity, seen in the [facility] for: Idiopathic intracranial [...] due to congenital deformity, seen in the [facility] for: 1. Idiopathic [...] she agreed. She needs to follow with chairman & co founder every 6 months. In some patients with [...] her eyes. She has never seen an chairman & co founder. CSF protein 24, Glu 55, Pro 28, [...] cognition, memory, speech. Cr (more content not included)...[id number] Miscellaneous Notes * Telephone Encounter - uBnny Durbin RN - 06/03/2023 4:24 PM EDT [...] A DAY IN A WEEK Pharmacy Name: [facility] Pharmacy Phone #: [phone] Fabby Cassidy documented [facility] Evaluation + Plan note Diagnostic Tests Pending * Zinc Level 03/19/23 * PTH Intact 03/19/23 * Vitamin A Level 03/19/23 * Vitamin B1 03/19/23 Future Scheduled Tests Laboratory* CBC w/ Auto Diff 07/21/22 Radiology* MA Mamm Screen w/CAD if perf and 3D [place] 04/21/22 [facility]05-04-2023 Hospital Discharge instructions Patient Education 01/15/2023 [...] Follow these instructions at home: Medicines Take afzz-gla-hfrzong and prescription medicines only as told by [...] provider. Document Revised: 11/14/2021 Document Reviewed: 11/14/2021 [employer] Patient Education 2022 [employer]. Follow Up Care 01/15/2023 10:48:45 With:Jennie Ames Address: [address] [place] [address] [place], [address] , [address] [address] Business (1) When:01/18/2023 13:32:37 [facility]05-04-2023 Evaluation + Plan noteExtracted from: Title:ED [...] w/CAD if perf and 3D Tanmay 04/21/22 [facility]03-31-2023 Miscellaneous Notes* Telephone Encounter - Bunny Durbin RN - 12/12/2022 3:03 PM EDT Spoke with patient and informed that per [facility] pharmacy, there are remaining refills on her [...] A DAY IN A WEEK Pharmacy Name: [facility] Pharmacy Phone #: [phone] Fabby Cassidy documented in [facility] Hospital Discharge instructions Patient Education 12/05/2022 12:15:12 Post Op Patient Instructions - ALANNA (CUSTOM) 12/05/2022 12:15:12 PRISM INSPECTOR - Post Hysterectomy/Laparotomy/Major Surgery-Thiago (CUSTOM) Instructions post [...] Up Care 11/04/2022 14:01:47 With:Gal Das Address: [address], [facility] [address] [place] [address] [employer] (1) When:6 weeks With:Gal Das Address: [address], [facility] [address] [place] [address] [employer] (1) When:2 weeks Comments:Call for any problems. [facility]03-24-2023 Evaluation + Plan noteExtracted from: Title:ANES Post-operative Note - General Author: Vu Maria Jr., DO Date:12/05/22 Plan Transfer/Discharge: Transfer/Discharge Discharge when meets criteria ( From PACU to Ambulatory Surgery Unit, and To home ). Extracted from: Title:ANES Pre-operative Note - Adult Author:Vu Chowdhury Jr., DO Date:12/05/22 Plan [place] Society of Anesthesiologists (ASA) physical status classification: Class II. Anesthetic Preoperative Plan: Anesthesia General. Future Appointments Appointment Date:01/02/2023 10:00:00 AM Scheduled Provider:Nakia Shah Location:[facility] Appointment Type: Open Future Scheduled Tests Laboratory* CBC w/ Auto Diff 07/21/22 Radiology* MA Mamm Screen w/CAD if perf and 3D Tanmay 04/21/22 [facility]03-09-2023 NoteHNO ID: [id number] Author: Eileen Manzano MD Service: ? Author Type: Physician Type: Progress Notes Filed: 11/20/2022 10:33 AM Note Text: [facility] New Patient Evaluation [...] due to congenital deformity, 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 She has never seen an chairman & co founder. CSF protein 24, Glu 55, Pro 28, [...] due to congenital deformity, seen in the [facility] for: 1. Idiopathic [...] she agreed. She needs to follow with chairman & co founder every 6 months. In some patients with [...] --start acetazolamide (diamox 500m (more content not included)...[facility] [id number] Instructions* Patient Instructions* Eileen Manzano MD - [...] up in 2-4 months documented in this encounterOhio[facility] History of Present illness Narrative* Eileen Manzano MD - 11/20/2022 7:57 AM EST Images from the original note were not included. [facility] New Patient Evaluation [...] due to congenital deformity, 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 She has never seen an chairman & co founder. CSF protein 24, Glu 55, Pro 28, [...] due to congenital deformity, seen in the [facility] for: 1. Idiopathic [...] she agreed. She needs to follow with chairman & co founder every 6 months. In some patients with intracranial hypertension, there mightbe a concurrent transverse sinus stenosis and transverse sinus stenting may resolve the symptoms. Stalin do MRV. --HTN --H depression --Headache: there [...] Take 40 mg by mouth once daily. dajhhaetmdtm-xhv-fnoq-FA-vit K (BARIATRIC MULTIVITAMINS) 45 mg iron- 800 [...] % Lymph% 20 15.9 - 47.3 % [place]% 6 0.0 - 12.0 % Eosin% 3 0.0 - 6.6 % Baso% 1 0.0 - 1.2 % Abs Neut (ANC) 7.64 (H) 1.45 - 7.50 k/uL Abs Lymph 2.18 1.00 - 4.00 K/uL Abs [place] 0.65 0.00 - 0.86 k/uL Abs Eosin [...] which included preparing to see the patient, ohme-by-diqw patient care, completing clinical documentation, obtaining and/or reviewing separately obtained history, performing a medically appropriate examination, counseling and educating the pat ient/family/caregiver, ordering medications, tests, or procedures, independently interpreting results (not separately reported), communicating results to the patient/family/caregiver, and care coordination (not separately reported). Eileen Manzano MD documented in this encounterOhio[facility] Hospital Discharge instructions Patient Education [...] height. This can be done either in [place] ([place] or metric measurements. Note that charts are available to help you find your BMI quickly and easily without having to do these calculations yourself. To calculate your BMI in Malaysian ([place] measurements, your health care provider will: [...] medical problems. BMI can be measured using Malaysian measurements or metric measurements. To interpret your [...] 05/12/2005 Document Revised: 08/13/2018 Document Reviewed: 07/14/2018 [employer] Patient Education 2020 [employer]. 11/03/2022 13:28:26 Tobacco Use Disorder Tobacco Use [...] reduces withdrawal symptoms. NRT is available as: ?Xyoi-zzn-fenfjmg gums, lozenges, and skin patches. ?Prescription mouth [...] recovery for many people. General instructions Take cxxq-wsj-sacynoy and prescription medicines only as told by your health care provider. Check with your health care provider before taking any new prescription or hflj-jid-vofvdlv medicines. Decide on a friend, family member, or smoking quit-line (such as 4-860-MJRA-NOW in the [place] that you can call [...] 05/06/2005 Document Revised: 08/18/2018 Document Reviewed: 08/18/2018 [employer] Patient Education 2020 [employer]. 11/03/2022 13:28:23 Alcohol Abuse and Dependence Information, [...] for Disease Control and Prevention: www.cdc.gov National [place] on Alcohol Abuse and Alcoholism: www.niaaa.nih.gov Alcoholics [...] 08/25/2017 Document Revised: 12/20/2019 Document Reviewed: 11/08/2019 [employer] Patient Education 2020 [employer] Inc[employer] 11/03/2022 13:28:19 BMI for Adults BMI for [...] height. This can be done either in Malaysian ([place] or metric measurements. Note that charts are available to help you find your BMI quickly and easily without having to do these calculations yourself. To calculate your BMI in Malaysian ([place] measurements, your health care provider will: [...] medical problems. BMI can be measured using Malaysian measurements or metric measurements. To interpret your [...] 05/12/2005 Document Revised: 08/13/2018 Document Reviewed: 07/14/2018 [employer] Patient Education 2020 [employer]. 10/27/2022 11:56:27 Alcohol Abuse and Dependence Information, [...] for Disease Control and Prevention: www.cdc.gov National [place] on Alcohol Abuse and Alcoholism: www.niaaa.nih.gov Alcoholics [...] 08/25/2017 Document Revised: 12/20/2019 Document Reviewed: 11/08/2019 [employer] Patient Education 2020 [employer]. Follow Up Care 10/15/2022 11:28:56 With:Charisse TEIXEIRA, Nakia Brock Address: [facility] [address], [place] [address]- When:Within 2 Month(s) Comments:f/u smoking cessation and BP [facility] 01-11-2023 Hospital Discharge [...] reduces withdrawal symptoms. NRT is available as: ?Patm-cib-uzrishy gums, lozenges, and skin patches. ?Prescription mouth [...] recovery for many people. General instructions Take awnn-ltk-tbkjctx and prescription medicines only as told by your health care provider. Check with your health care provider before taking any new prescription or qdds-kqu-bqjvbei medicines. Decide on a friend, family member, or smoking quit-line (such as 1-006-IRYH-NOW in the [place] that you can call [...] 05/06/2005 Document Revised: 08/18/2018 Document Reviewed: 08/18/2018 [employer] Patient Education 2020 [employer]. 09/24/2022 07:23:47 BMI for Adults BMI for [...] height. This can be done either in [place] ([place] or metric measurements. Note that charts are available to help you find your BMI quickly and easily without having to do these calculations yourself. To calculate your BMI in Malaysian ([place] measurements, your health care provider will: [...] medical problems. BMI can be measured using Malaysian measurements or metric measurements. To interpret your [...] 05/12/2005 Document Revised: 08/13/2018 Document Reviewed: 07/14/2018 [employer] Patient Education 2020 [employer]. 09/24/2022 07:23:45 Alcohol Use Disorder Alcohol Use [...] centers. Follow these instructions at home: Take fsgz-yle-qeyvvtg and prescription medicines only as told by [...] 10/08/2005 Document Revised: 08/13/2018 Document Reviewed: 05/28/2017 [employer] Patient Education 2020 [employer]. 09/24/2022 07:23:42 Borderline Personality Disorder, Adult Borderline [...] with BPD should do these things: Take fasn-afu-ggnnmud and prescription medicines only as told by [...] important. Where to find more information National [place] on Mental Illness: www.marivel.org [place]. National [place] of Mental Health: www.nimh.nih.gov Contact a health [...] 12/16/2011 Document Revised: 08/13/2018 Document Reviewed: 11/05/2017 [employer] Patient Education 2020 [employer]. 09/24/2022 07:23:39 Managing Bipolar Disorder Managing Bipolar [...] Follow these instructions at home: Medicines Take wpad-val-vmahtsr and prescription medicines only as told by your health care provider or pharmacist. Ask your pharmacist what lamx-gwx-lcdwmza cold medicines you should avoid. Some medicines [...] a problem, search for a local or [facility]. Public mental health [...] 12/31/2017 Document Revised: 12/23/2019 Document Reviewed: 12/31/2017 [employer] Patient Education 2020 [employer] Follow Up Care 09/16/2022 13:23:11 With:Aimee Walker CNP Address: [address] [place], [place] [address] [phone] When:3 months [facility] 12-09-2022 Hospital Discharge instructions Patient Education 08/22/2022 11:12:56 Tension Headache, Adult, Lgnu-ja-Lfgi Tension Headache, Adult A tension headache is pain, pressure, or aching in your head. Tension headaches can last from 30 minutes to several days. Follow these instructions at home: Managing pain Take eged-dzk-zmtynyd and prescription medicines only as told by [...] 11/25/2010 Document Revised: 08/13/2018 Document Reviewed: 12/11/2017 [employer] Patient Education 2020 [employer]. Follow Up Care 08/14/2022 12:38:29 With:Rita SNOWDEN, IGGY Roberson, PED Address: [address] [place] [phone] When:1 month only if needed Comments:40 mins [facility] 12-05-2022 Hospital Discharge [...] feet clean and dry. General instructions Take zglq-xnd-uumarva and prescription medicines only as told by [...] 09/26/2016 Document Revised: 06/16/2019 Document Reviewed: 06/16/2019 [employer] Patient Education 2020 [employer]. 08/18/2022 19:56:48 Foot Sprain Foot Sprain A [...] fully hardened. This may takeseveral hours. Take lwck-zwu-ultxake and prescription medicines only as told by [...] 02/20/2003 Document Revised: 09/04/2018 Document Reviewed: 09/04/2018 [employer] Patient Education 2020 [employer]. 08/18/2022 19:56:48 Elastic Bandage and RICE Therapy [...] limityour activities and whether you should start ggoxy-ul-mhrreb exercises for your injury. Ice Ice your [...] 02/20/2003 Document Revised: 05/21/2018 Document Reviewed: 05/21/2018 [employer] Patient Education 2020 [employer]. Follow Up Care 08/18/2022 17:21:15 With:Hilton Gillis Address: [address] [place], [place] [id number]- Business (1) When:08/21/2022 19:10:21 With:Aimee Walker Address:Unknown When:Within 3 Day(s) [facility]11-29-2022 [facility] Progress note Author Lizzeth Malave [facility] August 12, 2022 10:46am Note Date/Time August 12, 2022 10:45am [facility] EN[facility] [address] [place] [id number] Hospitalist Progress Note Signed Patient: Shazia Chou MR#: [id number] : 1990 Acct:[id number] Age/Sex: 31 / F Adm Date: 2 Loc: Room: [address] [place] [address] Type: ADM INOo Attending Dr: Lizzeth Malave MD Copies to: ~ Date of Service: 08/12/2022 Subjective Subjective Narrative: Shazia Chou is a 31yo F. She was transferred here last night from [facility] with worsening headache and blurry vision [...] Flu Vac Quad (36month+)Pf 0.5 Ml Syringe [id number] IM 08/13/22 09:01 .ONCE ONE Omeprazole 20 [...] <Electronically signed by Lizzeth Malave MD> 08/12/22 [facility] Work Phone: 1(790) 457-820811-29-2022 Consult note Author Kenrick Lee [facility] August 12, 2022 4:21pm Note Date/Time August 12, 2022 8:13am [facility] ENTER [address] [place] [address] Neurology Consult Note Signed Patient: Shazia Chou MR#: [id number] : 1990 Acct:[id number] Age/Sex: 31 / F Adm Date: 2 Loc: 4N Room: [address] [place] [address] Type: ADM INOo Attending Dr: Lizzeth Malave MD Copies to: Kenrick Lee, DO Jennie Stuart, EDINSON Malave MD~ HPI Consult Date: 08/12/22 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 She has been seen in neurological consultation with request of the hospital service for headache and blurred vision. Patient initially presented to [facility] and [facility]. She was seen in the [facility] on 08/08/2022 with similar symptoms and [...] this is when she called EMS. At [facility] she had a CT scan of [...] extremity from prior surgery CEREBELLAR EXAM: * Xrknvm-qw-pzng and alternating movements are intact and normal in bilateral upper extremities * Mtal-tl-cjwt and alternating movements are intact and normal [...] puncture based on these results. Evaluation at [facility]: * CT scan head is nonacute. [...] once daily). Okay for discharge [facility]. Documented By: EDINSON Dias 803 Signed By: <Electronically signed by EDINSON Niño> 08/12/22 0958 <Electronically signed by Kenrick Lee DO> 08/12/22 0440 [facility] Work Phone: 1(423) 234-585511-28-2022 History and physical note Author Sangeetha Peña [facility] August 11, 2022 9:43pm Note Date/Time August 11, 2022 9:08pm [facility] ENTER [address] [place], [place] [address]ist H&P Signed Patient: Shazia Chou MR#: [id number] : 1990 Acct:[id number] Age/Sex: 31 / F Adm Date: 2 Loc: 4N Room: 5D7999-7 Type: ADM IN Attending Dr: Erin Barahona MD Copies to: MD Erin Mcwilliams MD~ HPI DATE OF EXAMINATION: 08/11/22 CHIEF COMPLAINT: Headache with blurry vision HISTORY OF PRESENT ILLNESS: Patient is a pleasant 31-year-old female with history of borderline personality disorder, bipolar disorder and depression. She was accepted by daytime hospitalist when contacted by [facility] physician due to concern for headache [...] pain or dysuria. She was seenin the [facility] on 08/08 with similar symptoms. [facility]. Patient continues to [...] vision: Plan Patient has been transferred from [facility] when she presented with complaint of headache and blurry vision. During my evaluation her blood pressure is in 115 systolic and complaining of headache with blurry vision. Denies diplopia with no pain in extraocular movement. There is concern for possible idiopathic intracranial hypertension and patient has been transferred to [facility] for further management and neurology [...] <Electronically signed by Sangeetha Peña MD> 08/11/220 [facility] Work Phone: 1([phone]) 313-785511-25-2022 Evaluation + Plan noteExtracted from: Title:ED Note Author:Bakari Chester DO Date:10/08/21 Asymptomatic hypertension (I 10: Essential (primary) hypertension) Headache (R51.9: Headache, unspecified) Orders: APAP/butalbital/caffeine, 1 cap(s), Oral, q4hr for headache, 12 cap(s), Refill(s) 0, [facility]pharmacy #[id number], 162, cm, 08/08/22 9:11:00 EST, Height/Length Dosing, 83.1, kg, 08/08/22 9:11:00 EST, Weight Dosing ondansetron, 4 mg = 1 tab(s), Oral, q8hr, PRN Nausea/Vomiting, # 12 tab(s), Refills(s) 0, Pharmacy: [facility]/pharmacy #[id number], 162, cm, 08/08/22 9:11:00 EST, Height/Length Dosing, 83.1, kg, 08/08/22 9:11:00 EST, Weight Dosing Automated Diff Basic Metabolic Panel Beta hCG Qual CBC w/ Auto Diff CT Head or Brain w/o Contrast eGFR Influenza A&B Ag Rapid COVID Antigen ([facility] UA With Cult Reflex Future Scheduled Tests Laboratory* CBC w/ Auto Diff 07/21/22 Radiology* MA Mamm Screen w/CAD if perf and 3D [place] 04/21/22 [facility]11-25-2022 Hospital Discharge instructions Patient Education 08/08/2022 [...] health care provider to lose weight. Take ugym-hhh-gcqhyjg and prescription medicines only as told by [...] 11/09/2002 Document Revised: 08/13/2018 Document Reviewed: 07/22/2017 [employer] Patient Education 2020 [employer]. Follow Up Care 08/08/2022 09:04:11 With:Kenrick Lee Address: [address] [place] [address] [facility] (1) When:08/11/2022 11:38:22 Comments:Follow-up with Dr. Lee [...] you develop any new or worsening symptoms. [facility]11-07-2022 Evaluation + Plan note Future Scheduled Tests Laboratory* CBC w/ Auto Diff 07/21/22 Radiology* MA Mamm Screen w/CAD if perf and 3D [place] 04/21/22 [facility] 11-07-2022 Evaluation + Plan note Future Scheduled Tests Laboratory* CBC w/ Auto Diff 07/21/22 [facility]11-07-2022 Hospital Discharge instructions Patient Education 07/21/2022 [...] Follow these instructions at home: Medicines Take aqqw-ajo-dimwnum and prescription medicines only as told by your health care provider or pharmacist. Ask your pharmacist what ojmv-opf-jaaqnrv cold medicines you should avoid. Some medicines [...] a problem, search for a local or [facility]. Public mental health [...] 12/31/2017 Document Revised: 12/23/2019 Document Reviewed: 12/31/2017 [employer] Patient Education 2020 [employer]. 07/21/2022 11:21:57 Tobacco Use Disorder Tobacco Use [...] reduces withdrawal symptoms. NRT is available as: ?Kmcj-qas-lgitzsh gums, lozenges, and skin patches. ?Prescription mouth [...] recovery for many people. General instructions Take wkbn-uhe-ipoyvzm and prescription medicines only as told by your health care provider. Check with your health care provider before taking any new prescription or ddqf-rgj-phwvhwy medicines. Decide on a friend, family member, or smoking quit-line (such as 6-823-HVQZ-NOW in the [place] that you can call [...] 05/06/2005 Document Revised: 08/18/2018 Document Reviewed: 08/18/2018 [employer] Patient Education 2020 [employer]. 07/21/2022 11:21:55 BMI for Adults BMI for [...] height. This can be done either in Malaysian ([place] or metric measurements. Note that charts are available to help you find your BMI quickly and easily without having to do these calculations yourself. To calculate your BMI in Malaysian ([place] measurements, your health care provider will: [...] medical problems. BMI can be measured using Malaysian measurements or metric measurements. To interpret your [...] 05/12/2005 Document Revised: 08/13/2018 Document Reviewed: 07/14/2018 [employer] Patient Education 2020 [employer]. 07/21/2022 11:21:53 Leukocytosis Leukocytosis Leukocytosis means that [...] Follow these instructions at home: Medicines Take wzvh-ewa-resxihx and prescription medicines only as told by [...] 08/19/2012 Document Revised: 05/26/2019 Document Reviewed: 05/26/2019 [employer] Patient Education 2020 [employer]. Follow Up Care 07/18/2022 10:46:12 With:Aimee Walker CNP Address: When: only if needed [facility] 11-04-2022 Miscellaneous Notes* Telephone Encounter - Cat Rojo LPN - 07/18/2022 11:04 AM EDT Call placed to patient, no answer. Left message for patient to proceed with nicotine testing prior to scheduling. Please transfer to plastic surgery nurse if patient returns call with questions. documented in this encounterOhio[facility]-30-2022 Evaluation + Plan note Future Scheduled Tests Radiology* MRI Breast w/o and w/ Contrast, Left 05/13/22 * MA Mamm Screen w/CAD if perf and 3D [place] 04/21/22 [facility] General Surgery [place] 08-30-2022 Hospital Discharge instructions Patient Education 05/13/2022 [...] ?Hypothyroidism. ?Polycystic ovarian syndrome (PCOS). ?Binge-eating disorder. ?Leitchfield syndrome. Taking certain medicines, such as steroids, [...] food choices, such as grocery stores and [employer]. What are the signs or symptoms? The [...] and how much exercise you get. Take uoec-qew-wlhtqks and prescription medicines only as told by [...] 10/08/2005 Document Revised: 05/05/2019 Document Reviewed: 05/05/2019 [employer] Patient Education 2019 [employer]. [facility] General Surgery [place] [id number] Evaluation + Plan note Future Scheduled Tests Radiology* MA Mamm Screen w/CAD if perf and 3D [place] 04/21/22 [facility]08-08-2022 Hospital Discharge instructions Patient Education 04/21/2022 [...] height. This can be done either in Malaysian ([place] or metric measurements. Note that charts are available to help you find your BMI quickly and easily without having to do these calculations yourself. To calculate your BMI in Malaysian ([place] measurements, your health care provider will: [...] medical problems. BMI can be measured using Malaysian measurements or metric measurements. To interpret your [...] 05/12/2005 Document Revised: 08/13/2018 Document Reviewed: 07/14/2018 [employer] Patient Education 2020 [employer]. 04/21/2022 10:14:51 Lymphadenopathy Lymphadenopathy Lymphadenopathy means that [...] at home: Get plenty of rest. Take zohe-cgn-tjoibfd and prescription medicines only as told by your health care provider. Your health care provider may recommend nevp-jjc-lhpdfih medicines for pain. If directed, apply heat [...] 06/09/2009 Document Revised: 08/13/2018 Document Reviewed: 07/16/2018 [employer] Patient Education 2020 [employer]. 04/21/2022 10:14:49 Tobacco Use Disorder Tobacco Use [...] reduces withdrawal symptoms. NRT is available as: ?Mddt-uum-pxuiwhj gums, lozenges, and skin patches. ?Prescription mouth [...] recovery for many people. General instructions Take qkqo-yxm-mpmfswp and prescription medicines only as told by your health care provider. Check with your health care provider before taking any new prescription or isnp-atm-mnzwdsk medicines. Decide on a friend, family member, or smoking quit-line (such as 5-054-YMCI-NOW in the [place] that you can call [...] 05/06/2005 Document Revised: 08/18/2018 Document Reviewed: 08/18/2018 [employer] Patient Education 2020 [employer]. Follow Up Care 04/17/2022 09:51:05 With:Aimee Walker CNP Address: When: only if needed [facility] 08-07-2022 Hospital Discharge [...] at home: Get plenty of rest. Take wgwm-nll-jxncyvy and prescription medicines only as told by your health care provider. Your health care provider may recommend kzze-tie-iwxdkcb medicines for pain. If directed, apply heat [...] 06/09/2009 Document Revised: 08/13/2018 Document Reviewed: 07/16/2018 [employer] Patient Education 2020 [employer]. Follow Up Care 04/20/2022 14:55:22 With:Aimee Walker Address: [address] [place] [phone] Business (1) When:04/23/2022 16:08:48 Comments:Follow-up with your primary care provider in 3 to 5 days. If symptoms worsen, do not improve, or new symptoms arise please report back to emergency department for further evaluation. [facility]08-07-2022 Evaluation + Plan noteExtracted from: Title:ED Note Author:Dony Alegre PA-C te:04/20/22 Axillary lymphadenopathy (R5 9.0: Localized enlarged lymph nodes) Orders: naproxen, 500 mg = 1 tab(s), Oral, BID, PRN for pain, # 20 tab(s), Refills(s) 0, Pharmacy: [id number], 170, cm, 04/20/22 15:01:00 EDT, Height/Length Dosing, 81.5, kg, 04/20/22 15:01:00 EDT, Weight Dosing Automated Diff Basic Metabolic Panel CBC w/ Auto Diff eGFR XR Chest 2 Views Future Appointments Appointment Date:04/21/2022 09:40:00 AM Scheduled Provider:Aimee Walker CNP Location:[facility] Appointment Type:[facility]07-21-2022 Hospital Discharge instructions Patient Education 04/03/2022 19:32:39 [...] 03/15/2012 Document Revised: 08/24/2019 Document Reviewed: 08/24/2019 [employer] Patient Education 2020 [employer]. Follow Up Care 04/03/2022 16:59:04 With:Aimee Walker CNP Address: [phone] When:04/06/2022 [facility]06-17-2022 Miscellaneous Notes* Telephone Encounter - Lina Chavez RN - 02/28/2022 3:[address] Mckee, patient must be 4 weeks nicotine free prior to scheduling and collection of cosmetic payment. documented in this encounterOhio[facility]06-01-2022 History of Present illness Narrative* Amee Gonzalez PA-C - 02/12/2022 10:38 AM EDT Images from the original note were not included. Otolaryngology Consultation/Evaluation Note Head and Neck [place] ASSESSMENT: Burning tongue (primary encounter diagnosis) Irritation of oral cavity PLAN: - Oral mucosa at floor of mouth, Treutlen's ducts, and frenulum irritated with mild erythema [...] Take 40 mg by mouth once daily. ikqnrigpdcbr-auv-shbl-FA-vit K (BARIATRIC MULTIVITAMINS) 45 mg iron- 800 [...] where noted below: GENERAL: On physical examination hSazia Chou is a well-developed, well nourished female. [...] and tender to palpation specifically around b/l Gisela's ducts and frenulum. Ventral aspect of tongue [...] Level: 3 - Low documented in this encounterOhio[facility]05-26-2022 Hospital Discharge instructions Patient Education [...] reduces withdrawal symptoms. NRT is available as: ?Exps-sfn-ccjazks gums, lozenges, and skin patches. ?Prescription mouth [...] recovery for many people. General instructions Take ilyd-sea-gcdkgus and prescription medicines only as told by your health care provider. Check with your health care provider before taking any new prescription or wtmu-rfq-lpphhad medicines. Decide on a friend, family member, or smoking quit-line (such as 3-105-GLVS-NOW in the [place] that you can call [...] 05/06/2005 Document Revised: 08/18/2018 Document Reviewed: 08/18/2018 [employer] Patient Education 2020 [employer]. 02/06/2022 09:33:46 BMI for Adults BMI for [...] height. This can be done either in Malaysian ([place] or metric measurements. Note that charts are available to help you find your BMI quickly and easily without having to do these calculations yourself. To calculate your BMI in Malaysian ([place] measurements, your health care provider will: [...] medical problems. BMI can be measured using Malaysian measurements or metric measurements. To interpret your [...] 05/12/2005 Document Revised: 08/13/2018 Document Reviewed: 07/14/2018 [employer] Patient Education 2020 [employer] Follow Up Care 02/05/2022 13:43:34 With:Aimee Walker CNP Address: When: only if needed [facility] 05-18-2022 Hospital Discharge [...] height. This can be done either in Malaysian ([place] or metric measurements. Note that charts are available to help you find your BMI quickly and easily without having to do these calculations yourself. To calculate your BMI in Malaysian ([place] measurements, your health care provider will: [...] medical problems. BMI can be measured using Malaysian measurements or metric measurements. To interpret your [...] 05/12/2005 Document Revised: 08/13/2018 Document Reviewed: 07/14/2018 [employer] Patient Education 2020 [employer] Inc[employer] 01/29/2022 11:02:54 Complicated Grief Complicated Grief Grief [...] friends and loved ones. General instructions Take ywsh-zxf-zocfhgz and prescription medicines only as told by [...] 08/31/2006 Document Revised: 08/13/2018 Document Reviewed: 06/16/2018 [employer] Patient Education 2020 [employer]. 01/29/2022 11:02:50 Alcohol Abuse and Dependence Information, [...] for Disease Control and Prevention: www.cdc.gov National [place] on Alcohol Abuse and Alcoholism: www.niaaa.nih.gov Alcoholics [...] 08/25/2017 Document Revised: 12/20/2019 Document Reviewed: 11/08/2019 [employer] Patient Education 2020 [employer]. 01/29/2022 11:02:46 Managing Bipolar Disorder Managing Bipolar [...] Follow these instructions at home: Medicines Take ifmq-ryj-puomlbl and prescription medicines only as told by your health care provider or pharmacist. Ask your pharmacist what njcg-tjf-zjpwinr cold medicines you should avoid. Some medicines [...] a problem, search for a local or [facility] mental health care [facility]. Public mental health [...] 12/31/2017 Document Revised: 12/23/2019 Document Reviewed: 12/31/2017 [employer] Patient Education 2019 [employer]. [facility] 05-02-2022 Miscellaneous Notes* [...] they would pay for the panniculectomy verses atumlouis tuck. Patient was wondering if she had the panniculectomy with lipo and the bellybutton. How much would that be for her out of pocket? Patient states that if she needed to come in for another consult she would. Please advise at [phone] documented in this encounterOhio[facility]04-15-2022 Miscellaneous Notes* Telephone Encounter - [...] understood. Rocio Hester Ma documented in this encounterOhiohealth [facility]ady [facility]05-21-2021 History of Present illness Narrative* Radha Jara - 02/01/2021 9:47 AM EDT CLINICAL PHARMACY NOTE: MEDS TO BEDS Total # of Prescriptions Filled: 2 The following medications were delivered to the patient: Percocet 5-325mg Augmentin 875-125mg Additional Documentation: delivered to patient in room 236 02/01 at 9:44am. Co- pay paid with credit on [employer] ($4.31). * Gamaliel Harris, DO - 01/31/2021 6:29 AM EDT Bariatric [...] Advance diet Overall improvement * Yvonne Singh RPH - 01/30/2021 9:03 PM EDT Images from [...] of 12.5ml/hr. Thank You, Yvonne Singh RPH :00 PM documented in this encounterPremier Health [facility] HospitalSmart [facility] Phone: 1(969) 795-464705-15-2021 History of Present illness Narrative* Jasmine Burch RN - 01/26/2021 1:51 PM EDT Infusion complete, no complications, IV out and dressing applied. Encouraged patient to call with any questions. Patient left unit with steady gait to private residence. documented in this encounterILink Global Phone: 1(974) 978-881304-27-2021 History of Present illness Narrative* Radha Jara - 01/08/2021 5:59 PM EDT CLINICAL PHARMACY NOTE: MEDS TO [facility] Patient?: No Total # of Prescriptions Filled: 3 The following medications were delivered to the patient: Percocet 5-325mg Promethazine 25mg Pantoprazole 40mg Total # of Interventions Completed: 0 Time Spent (min): 0 Additional Documentation: delivered to patient in room 247 01/08 at 5:43pm. Co- pay paid with [employer] ($7.02). * Gal Atwood DO - 01/08/2021 [...] Intake/Output Summary (Last 24 hours) at 01/08/2021 0692 Last data filed at 01/08/2021 0449 Gross [...] obesity with BMI of 40.0-44.9, adult ([facility]) [E66.01, Z68.41] 05/16/2020 30 y.o. female [...] obtained for OR 01-07-21 documented in this [facility] Phone: 1(490) 531-891204-27-2021 Hospital Discharge instructions* Instructions* Gamaliel Harris DO - 01/08/2021 Discharge Instructions for Surgery You had a Tian-en- Y Gastric Bypass (25261) surgery to treat obesity. Recovery from this [...] scheduled appointment, please call the office at [phone]. Call Your Doctor If Any of the [...] emergency, call 911 immediately. documented in this [facility] Phone: 1(324) 576-537504-12-2021 Hospital Discharge instructions* Instructions* Mahesh Price APRN - OBEDIENCE TRAINER - 12/24/2020 Images from the original note [...] drive you home after your procedure. 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 Day of Surgery/Procedure As a patient at [facility] you can expect quality medical and nursing care that is centered on your individual needs. Our goal is to make your surgical experience as comfortableas possible . Directions to the Surgery Center [facility] is located at [address] [place] [address]. Please pull into the Emergency parking lot and stop at the retail support associate arcos. We offer free retail support associate service for all our surgery patients, if you choose not to have retail support associate parking we have additional parking across the street.You will enter the facility following the [facility] sign. Please stop at the reception agent desk where you will be checked in by the staff. If you have any questions please call [phone]. Transportation after your procedure. You will need a friend or family member to drive you home after your procedure. 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 [place] your teeth but do not swallow water. [...] or the day of surgery, please call [phone], or [phone] documented in this [facility] Phone: 1(743) 658-299804-12-2021 History of Present illness Narrative* Mahesh Price APRN - IRENE - 12/24/2020 10:30 AM EDT Anesthesia Focused [...] Anxiety Arthritis knees and back Bipolar disorder ([facility]) 11/25/[address] Chap[address]. 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 Harris Obesity Patient was evaluated in [facility] & anesthesia guidelines were applied. NPO guidelines, [...] BLEVINS 12/24/20 11:38 AM documented in this [facility] Work Phone: evaluation + Plan note No data available for this section [facility] Evaluation + Plan note Referrals to Other Providers Referred by: Aimee Walker CNP [facility] Primary Care Evaluation + Plan note Future Appointments Appointment Date:04/04/2022 02:40:00 PM Scheduled Provider:Rahul Salinas DO Location:[facility] Future Appointments Appointment [...] w/CAD if perf and 3D [place] 04/21/22 [facility] Primary Care Evaluation + Plan note Future Appointments Appointment Date:08/22/2022 10:20:00 AM Scheduled Provider:Rahul Salinas DO Location:[facility] Appointment Type: Hospital Follow Up w/TCM Future Scheduled Tests Laboratory* CBC w/ Auto Diff 07/21/22 Radiology* MA Mamm Screen w/CAD if perf and 3D [place] 04/21/22 [facility] Hospital[facility] + Plan note Future Appointments Appointment Date:11/03/2022 01:00:00 PM Scheduled Provider:Nakia Shah Location:[facility] Appointment Type: Open Future Scheduled Tests Laboratory* CBC w/ Auto Diff 07/21/22 Radiology* MA Mamm Screen w/CAD if perf and 3D [place] 04[facility]21/22 [facility] Future Appointments Appointment Date:01/02/2023 10:00:00 AM Scheduled Provider:Nakia Shah Location:[facility] Appointment Type: Open Future Scheduled Tests Laboratory* CBC w/ Auto Diff 07/21/22 Radiology* MA Mamm Screen w/CAD if perf and 3D Tanmay 04/21/22 [facility] Primary Care Evaluation + Plan note Future Appointments Appointment Date:12/05/2022 09:00:00 AM Scheduled Provider: Location:[facility] Surgical Services Appointment Type:Surgery FT Appointment Date:01/02/2023 10:00:00 AM Scheduled Provider:Nakia Shah Location:[facility] Appointment Type:FM Open Future Scheduled Tests Laboratory* CBC w/ Auto Diff 07/21/22 Radiology* MA Mamm Screen w/CAD if perf and 3D [place] 04/21/22 [facility] Future Appointments Appointment Date:12/25/2023 10:15:00 AM Scheduled Provider:Chava BHAKTA, Otto [place] [facility] ([facility] Diagnosis Preop testing- Primary Preoperative examination, unspecified documented in this encounter [employer] Phone: [email or web address] note* Diagnosis Post-op pain- Primary Other acute postoperative pain Status post gastric bypass for obesity Bariatric surgery status Morbid obesity with BMI of 40.0-44.9, adult (HCC) Hiatal hernia Diaphragmatic hernia without mention of obstruction or gangrene documented in this encounter [employer] Phone: [email or web address] note* Diagnosis Dehydration documented in this encounter [employer] Phone: [email or web address] note* Diagnosis Generalized abdominal pain- Primary Abdominal pain, generalized documented in this encounter [employer] Phone: [email or web address] note* Diagnosis Surgery, elective- Primary Unspecified elective surgery for purposes other than remedying health states Omental infarction (HCC) Acute vascular insufficiency of intestine Intra-abdominal abscess (HCC) Peritoneal abscess documented in this encounter [employer] Phone: [email or web address] note* Diagnosis Omental infarction (HCC) Acute vascular insufficiency of intestine documented in this encounter [employer] Phone: [email or web address] note* Diagnosis Hypertrophy of breast- Primary Upper back pain Excess skin [facility] Diagnosis Burning tongue- Primary Glossodynia Irritation of oral cavity Other and unspecified diseases of the oral soft tissues [facility] encounter [facility]* Diagnosis Onset Date Resolution Status Bipolar 1 disorder acute Blurry vision acute Borderline personality disorder acute Headache acute MDD (major depressive disorder) acute Palpitation acute [facility] Work Phone: Evaluation note* Diagnosis Idiopathic intracranial hypertension- Primary Benign intracranial hypertension Depression, unspecified depression type Primary hypertension Unspecified essential hypertension Hx of gastric bypass Bariatric surgery status H/O foot surgery Personal history of surgery to other organs documented in this encounter [facility] noteNo assessment information [facility] Work Phone: Evaluation noteNo InformationN[facility] [employer] Other Evaluation note* Diagnosis Panic disorder- Primary Panic disorder without agoraphobia Borderline personality disorder (HCC) Borderline personality disorder Bipolar affective disorder in remission (HCC) Chronic alcoholism in remission (HCC) Other and unspecified alcohol dependence, in remission Routine health maintenance Routine general medical examination at a health care facility documented in this encounter [facility]* Diagnosis Panic disorder- Primary Panic disorder without agoraphobia documented [facility] this encounter [facility]* Diagnosis Routine health maintenance- Primary Routine [...] disorder, unspecified type documented [facility] this encounter [facility]* Diagnosis 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 documented in this encounter [place] [facility] Narrative - Reported* Type Description Date Medical History plantar fasciitis Medical History migraine headache Medical History borderline personality disorder Medical History chronic depression Medical History bipolar Surgical History C section Surgical History c section Surgical History tubal ligation Surgical History HYSTERECTOMY Surgical History oral surgery Surgical History gastric bypass Hospitalization History mental health issues [employer] Other History general Narrative - Reported* Type Description Date Medical History plantar fasciitis Medical History migraine headache Medical History borderline personality disorder Medical History chronic depression Medical History bipolar Surgical History C section Surgical History c section Surgical History tubal ligation Surgical History HYSTERECTOMY Surgical History oral surgery Surgical History gastric bypass Hospitalization History mental health issues [place] [facility] [place]13 023 [employer] [facility] [employer] Other Hospital Discharge instructions No data available for this section [facility] Primary Care Progress note No data available for this section [facility] Ass[facility] Diagnosis Preoperative testing Preoperative examination, unspecified Diagnosis Gastroesophageal reflux disease with esophagitis without hemorrhage Advance Directives No Advanced Directives Records FoundDocuments on File Type Date Recorded Patient Or Nurse Manager Expl anation ACP-Advance Directive ACP-Power of Supervisor [employer] Documents on File Type Date Recorded Patient Or Nurse Manager Expl anation ACP-Advance Directive ACP-Power of Supervisor [employer] Latest Code Status on File Code Status [...] Date/ Time Advance Directives No January 08 6:21pm Advance Directive Response Recorded Date/ Time [...] questions, PLEASE call your doctor or the [facility] Management center at documented in this encounter Reason for Referral Status Reason Specialty Diagnoses / Procedures Referre d By Contact Referred To Contact Closed Radiology Diagnoses Omental infarction (HCC) Procedures CT ABDOMEN PELVIS W IV CONTRAST Additional Contrast? Oral Gamaliel Harris DO [address] [facility] [address] [place] [phone] Specialty Diagnoses / Procedures Referred By Contac t Referred To Contact Ophthalmology Diagnoses Idiopathic intracranial hypertension Procedures CONSULT TO OPHTHALMOLOGY OFFICE/OUTPATIENT [facility] 60-74 MINUTES Eileen Manzano MD [address] [place] [address] Referral ID Status Reason Start Date Expiration Date Visits Requested Visits Authorized [id number] Authorized PCP Requested Referral 11/20/2022 11/20/2023 1 1 Specialty Diagnoses / Procedures Referred By Contac t Referred To Contact MR IMAGING Diagnoses Idiopathic intracranial hypertension Procedures MRV BRAIN WO/W IVCON MRA; HEAD W & WO CONTRAST Eileen Manzano MD [address] [place] [address] Mr Imaging Referral ID Status Reason Start Date Expiration Date Visits Requested Visits Authorized [id number] Pending Review Auto-Generat ed Referral 11/20/2022 12/20/2023 1 1 Specialty Diagnoses / Procedures Referred By Contac t Referred To Contact MR IMAGING Diagnoses Mass of upper outer quadrant of left breast Procedures MRI BREAST BX WO/W IVCON LEFT BX BREAST W/DEVICE 1ST [place] [address] [place] [address] [place] [address] Referral ID Status Reason Start Date Expiration Date Visits Requested Visits Authorized [id number] Pending Review Auto-Generat ed Referral 03/08/2024 04/07/2025 1 1 Specialty Diagnoses / Procedures Referred By Contac t Referred To Contact Diagnoses Class 1 obesity due to excess calories without serious comorbidity with body mass index (BMI) of 30.0 to 30.9 in adult Procedures ENDOCRINE MEDICAL WEIGHT MANAGEMENT OFFICE/OUTPATIENT [facility] [address] [place] [address] [place] [address] Referral ID Status Reason Start Date Expiration Date Visits Requested Visits Authorized [id number] Authorized PCP Requested Referral 03/08/2024 03/08/2025 1 1 Specialty Diagnoses / Procedures Referred By Contac t Referred To Contact MR IMAGING Diagnoses Pancreas cyst Procedures MRI 3D POST PROCESSING 3D RENDERING W/INTERP&POSTPROC DIFF WORK STATION Leonela Grossman MD [address] [place] [phone] [facility] [place] [address] Referral ID Status Reason Start Date Expiration Date V isits Requested Visits Authorized [id number] Closed Auto-Generate d Referral 08/31/2023 09/29/2024 1 1 Specialty Diagnoses / Procedures Referred By Contac t Referred To Contact MR IMAGING Diagnoses Pancreas cyst Procedures MRI PANC/TANMAY WO/W IVCON MRI ABDOMEN W/O & W/CONTRAST MATERIAL Leonela Grossman MD [address] [place] [phone] [facility] [place] [address] Referral ID Status Reason Start Date Expiration Date V isits Requested Visits Authorized [id number] Closed Auto-Generate d Referral 03/01/2024 03/31/2024 1 [...] and content) DATE CREATED AUTHOR 10/06/2020 [employer] DATE CREATED AUTHOR AUTHOR'S ORGANIZ ATION 01/06/2021 [facility] DATE CREATED AUTHOR AUTHOR'S ORGANIZ ATION 08/16/2022 [facility] DATE CREATED AUTHOR AUTHOR'S ORGANIZ ATION 11/15/2022 [facility] DATE CREATED AUTHOR AUTHOR'S ORGANIZ ATION 08/17/2023 [facility] DATE CREATED AUTHOR AUTHOR'S ORGANIZ ATION 09/04/2023 [facility] DATE CREATED AUTHOR AUTHOR'S ORGANIZ ATION 10/26/2023 [facility] DATE CREATED AUTHOR AUTHOR'S ORGANIZ ATION 01/14/2024 [facility] DATE CREATED AUTHOR AUTHOR'S ORGANIZ ATION 03/12/2024 [facility] DATE CREATED AUTHOR AUTHOR'S ORGANIZ ATION 04/28/2024 [facility] DATE CREATED AUTHOR AUTHOR'S ORGANIZ ATION 05/21/2024 [facility] Reason for Visit (unrecogniz ed section and content) Status Reason Specialty Diagnoses / Procedures Re ferred By Contact Referred To Contact Diagnoses GERD (gastroesophageal reflux disease) GERD/OBESITY Procedures RI ESOPHAGOGASTRODUODENOSCOPY TRANSORAL DIAGNOSTIC EGD ESOPHAGOGASTRODUODENOSCOPY Gamaliel Harris DO [address] [facility] [address] [place] [phone] [facility] Status Reason Specialty Diagnoses / Procedures Referre d By Contact Referred To Contact Closed Radiology Diagnoses Gastro-esophageal reflux disease with esophagitis, without bleeding Procedures CHG RADIOLOGIC EXAM UPR GI TRC SINGLE CONTRAST STUDY Gamaliel Harris DO [address] [facility] [address] [place] [phone] [facility] Radiology [address] [place], [place] [id number] Status Reason Specialty Diagnoses / Procedures Referre d By Contact Referred To Contact Diagnoses Morbid obesity (HCC) GERD (gastroesophageal reflux disease) MORBID OBESITY, GERD Procedures RI LAP GASTRIC BYPASS/TIAN-EN-Y XI LAPAROSCOPIC ROBOTIC GASTRIC BYPASS TIAN-EN-Y, LIVER BIOPSY, EGD- GI UNIT SCHEDULED. Gamaliel Harris DO [address] [facility] [address] [place] [address] [facility] Reason Comments Abdominal Pain Diffuse cramping and bloating. Onset 2 days ago. Pt reports she is 3.5weeks post Gastric bypass. Last BM this AM Reason Comments Abdominal Pain possible abscess Status Reason Specialty Diagnoses / Procedures Referre d By Contact Referred To Contact Diagnoses Intra-abdominal abscess (HCC) Omental infarction (HCC) Gamaliel Harris DO [address] [facility] [address] [place] [address] [facility] Status Reason Specialty Diagnoses / Procedures Referre d By Contact Referred To Contact Closed Radiology Diagnoses Omental infarction (HCC) Procedures CT ABDOMEN PELVIS W IV CONTRAST Additional Contrast? Oral Gamaliel Hraris DO [address] [facility] [address] [place] [address] Reason Comments Orders Reason Comments Patient Question [...] present [K21.9] Obesity (BMI 30-39.9) [E66.9] Procedures RI EGD TRANSORAL BIOPSY SINGLE/MULTIPLE RI ESOPHAGOGASTRODUODENOSCOPY TRANSORAL DIAGNOSTIC RI EGD BALLOON DILATION ESOPHAGUS <30 MM DIAM EGD BIOPSY Gamaliel Harris DO [address] [facility] [address] [place] [address] [facility] [address] [place] [address] Referral ID Status Reason Start Date Expiration Date Visits Re quested Visits Authorized [id number] 1 1 Reason Comments Establish Care Panic [...] W/O & W/CONTRAST MATERIAL Leonela Grossman MD [address] [place] [address] [place] [address] Referral ID Status Reason Start Date Expiration Date V isits Requested Visits Authorized [id number] Closed Auto-Generate d Referral 03/01/2024 03/31/2024 1 [...] 01/26/21 at 0915, For 1 dose 1131 (Momo Bag - Prov ider: Jasmine Burch RN)1345 [...] (New Bag - Prov ider: Judy Reeder, MARCO)1515 (Patient Transferred to Other Facility - Provider: Judy Reeder RN) PRN Medication Order 01/28/2021 01/29/2021 01/30/2021 iopamidol (ISOVUE-370) 76 % injection 18 mL (COMPLETED) 18 mL, Other, IMG ONCE PRN, Other, Starting on Thu01/30/21 at 1137, For 1 dose 1142 (Given - Provid er: [facility]) iopamidol (ISOVUE-370) 76 % injection 75 mL (COMPLETED) 75 mL, Intravenous, IMG ONCE PRN, Other, Starting on Thu01/30/21 at 1137, For 1 dose 1142 (Given - Provid er: [facility]) Scheduled Medication Order 01/30/2021 01/31/2021 02/01/2021 0.9 % sodium chloride bolus (COMPLETED) 1,000 mL (8.96 mL/kg), Intravenous, at 1,000 mL/hr, Administer over 1 Hours, ONCE, On Thu01/30/21 at 1715, For 1 dose 1708 (New Bag - Provider: Annita Guevara RN)1901 (Stopped - Provider: Annita Guevara RN) enoxaparin (LOVENOX) injection 40 mg 40 mg, Subcutaneous, EVERY 12 HOURS SCHEDULED (2 times per day), First dose on Thu01/30/21 at 2200 2315 (Held - Provider: Heather Palacios RN - Reason: Patient/family refused) 0938 (Given - Provider: Wei Carter, MARCO)2100 (Due) 0831 (Given - Provider: Bonnie Ruiz [...] RN) 0336 (Stopped - Provider: Heather Palacios, MARCO)0635 (New Bag - Provider: Heather Palacios RN)0940 [...] Klein, MARCO) 0404 (Given - Provider: Rita Klein RN) oxyCODONE-acetaminophen (PERCOCET) 5-325 MG per tablet 1 tablet 1 tablet, Oral, EVERY 4 HOURS PRN, Pain Severe (7-10), Starting on Thu01/30/21 at 2157, Maximum dose of acetaminophen is 4000 mg from all sources in 24 hours. 2251 (Given - Provider: Jacob Mane RN) 0451 (Given - Provider: Heather Palacios RN)0939 (Given - Provider: Wei Carter, MARCO)1424 (Given - Provider: Wei Carter RN)1921 (Given [...] or prosecute any alcohol or drug abuse patient.[facility] Hospital[facility] the event this information is protected by the Federal Confidentiality of Alcohol and Drug Abuse Patient Records regulations: The Federal rules restrict any use of the information to criminally investigate or prosecute any alcohol or drug abuse patient.[facility] Hospital[facility] the event this information is protected by the Federal Confidentiality of Alcohol and Drug Abuse Patient Records regulations: The Federal rules restrict any use of the information to criminally investigate or prosecute any alcohol or drug abuse patient.[facility] Hospital[facility] the event this information is protected by the Federal Confidentiality of Alcohol and Drug Abuse Patient Records regulations: The Federal rules restrict any use of the information to criminally investigate or prosecute any alcohol or drug abuse patient.[facility] HospitalIn the event this information is protected by the Federal Confidentiality of Alcohol and Drug Abuse Patient Records regulations: The Federal rules restrict any use of the information to criminally investigate or prosecute any alcohol or drug abuse patient.[facility] Hospital[facility] the event this information is protected by the Federal Confidentiality of Alcohol and Drug Abuse Patient Records regulations: The Federal rules restrict any use of the information to criminally investigate or prosecute any alcohol or drug abuse patient.[facility] HospitalIn the event this information is protected by the Federal Confidentiality of Alcohol and Drug Abuse Patient Records regulations: The Federal rules restrict any use of the information to criminally investigate or prosecute any alcohol or drug abuse patient.[facility] HospitalIn the event this information is protected by the Federal Confidentiality of Alcohol and Drug Abuse Patient Records regulations: The Federal rules restrict any use of the information to criminally investigate or prosecute any alcohol or drug abuse patient.[facility] HospitalIn the event this information is protected by the Federal Confidentiality of Alcohol and Drug Abuse Patient Records regulations: The Federal rules restrict any use of the information to criminally investigate or prosecute any alcohol or drug abuse patient.[facility] HospitalIn the event this information is protected by the Federal Confidentiality of Alcohol and Drug Abuse Patient Records regulations: The Federal rules restrict any use of the information to criminally investigate or prosecute any alcohol or drug abuse patient.[facility] HospitalIn the event this information is protected by the Federal Confidentiality of Alcohol and Drug Abuse Patient Records regulations: The Federal rules restrict any use of the information to criminally investigate or prosecute any alcohol or drug abuse patient.[facility] HospitalIn the event this information is protected by the Federal Confidentiality of Alcohol and Drug Abuse Patient Records regulations: The Federal rules restrict any use of the information to criminally investigate or prosecute any alcohol or drug abuse patient.[facility] HospitalIn the event this information is protected by the Federal Confidentiality of Alcohol and Drug Abuse Patient Records regulations: The Federal rules restrict any use of the information to criminally investigate or prosecute any alcohol or drug abuse patient.[facility] HospitalIn the event this information is protected by the Federal Confidentiality of Alcohol and Drug Abuse Patient Records regulations: The Federal rules restrict any use of the information to criminally investigate or prosecute any alcohol or drug abuse patient.[facility] Care Team (unrecognized sect ion [...] Status: Inactive Member Role Status Dates Jennie Amse , DO Primary Care Provider Active Dorita Niño ANP-BC Attending Provider Active Team Status: Inactive Member Role Status Dates Jennie Ames , DO Primary Care Provider Active Jose Maria Nair , DO Emergency Provider Active Team Status: Inactive Member Role Status Dates Jennie Ames , DO Primary Care Provider Active Yoli Norris MD Emergency Provider Active Ring Barker Operator Relationship Specialty Start Date End Date Jennie Ames DO [address] [place] [facility] [place] [phone] PCP - General Family Medicine 11/19/22 Team [...] December 31, 2023 End: December 31, 2023 Ring Barker Operator Relationship Specialty [place] [address] [place] [address] PCP - General Family Medicine 01/04/24 Nilo Prado MD [address] [place] [phone] Referring Gastroenterology 08/17/23 Ring Barker Operator Relationship Specialty [place] [address] [place] [address] PCP - General Family Medicine 01/04/24 Nilo Prado MD [address] [place] [address] Referring Gastroenterology 08/17/23 Ring Barker Operator Relationship Specialty [place] [address] [place] [address] PCP - General Family Medicine 01/04/24 Nilo Prado MD [address] [place] [address] Referring Gastroenterology 08/17/23 Ring Barker Operator Relationship Specialty [place] [address] [place] [address] PCP - General Family Medicine 01/04/24 Nilo Prado MD [address] [place] [address] Referring Gastroenterology 08/17/23 Ring Barker Operator Relationship Specialty [place] [address] [place] [address] PCP - General Family Medicine 01/04/24 Nilo Prado MD [address] [place] [address] Referring Gastroenterology 08/17/23 Goals (unrecognized section and [...] BE BASED ON THE PRIMARY CLINICAL RECORDS. [employer] provides no warranty or guarantee of the accuracy or completeness of information in this document.
--- NOTE | 2024-05-23 06:53 | ECG_ITS ---
[facility] Test Date: 2024-05-23 Pat Name: LEILA HASSAN Department: Room: - Gender: Female [employer] Machine [employer]: : 1990 Requested By: Order Number: [id number] Reading MD: PRABHJOT RAHMAN Measurements Intervals [place] Rate: 76 P: 30 PA: 144 QRS: 48 QRSD: 80 T: 35 QT: 364 QTc: 395 Interpretive Statements 1100 Sinus rhythm 9110 normal ECG Compared to ECG 04/08/2024 06:52:54 T-wave abnormality no longer present Electronically Signed On 05-23-2024 22:48:43 EDT by PRABHJOT RAHMAN
--- NOTE | 2024-05-23 06:53 | ED.SOB1 ---
HPI - SOB/Dyspnea General Chief Complaint: Upper Respiratory Infection Stated Complaint: SOB Time Seen by Provider: 05/23/24 06:29 Source: patient Mode of arrival: walk-in Limitations: no limitations History of Present Illness HPI Narrative: This 33-year-old female, smoker, presents for evaluation of cough, shortness of breath. The patient states she was seen recently at the [facility] where she goes and was told that her lungs were tight and she was tested for COVID which was negative. She was given a Zithromax Z-FRANCESCA, albuterol and Medrol Dosepak but still is having shortness of breath. She denies any chest pain dizziness or syncope. She has an occasional cough with yellow phlegm. She has no abdominal pain or back pain. She does have a history of anxiety but denies that she is feeling anxious at this time. She has not had a fever. She has no lower extremity pain or swelling. Related Data Home Medications ?Medication ?Instructions ?Recorded ?Confirmed cholecalciferol (vitamin D3) 125 5,000 unit PO .COMPLEX 06/10/23 04/08/24 mcg (5,000 unit) capsule duloxetine 60 mg capsule,delayed 60 mg PO BID 06/10/23 04/08/24 release acetazolamide 250 mg tablet 250 mg PO Q12H 07/10/23 04/08/24 brexpiprazole 4 mg tablet (Rexulti) 4 mg PO DAILY 07/10/23 04/08/24 buspirone 5 mg tablet 5 mg PO BID 10/14/23 04/08/24 trazodone 100 mg tablet 50 mg PO BEDTIME 10/14/23 04/08/24 semaglutide 0.25 mg or 0.5 mg (2 0.5 mg subcut QWEEK 12/19/23 04/08/24 mg/3 mL) subcutaneous pen injector clonazepam 0.5 mg tablet 0.5 mg PO PRN 04/08/24 04/08/24 lamotrigine 25 mg tablet 25 mg PO TID 04/08/24 04/08/24 naltrexone 50 mg tablet 50 mg PO .once daily 04/08/24 04/08/24 tirzepatide 2.5 mg/0.5 mL 2.5 mg subcut .once a week 04/08/24 04/08/24 subcutaneous pen injector (Yolande) Previous Rx's ?Medication ?Instructions ?Recorded ondansetron 4 mg disintegrating 4 mg PO Q6H PRN nausea/vomiting 08/14/23 tablet #20 tabs meclizine 25 mg tablet 25 mg PO TID PRN dizziness #20 tabs 10/14/23 Allergies Allergy/AdvReac Type Severity Reaction Status Date / Time buspirone [From BuSpar] Allergy Intermediate tachycardia Verified 05/23/24 06:37 aripiprazole [From Abilify] Allergy Unknown Verified 05/23/24 06:37 COCONUT Allergy Mild Hives Uncoded 05/23/24 06:37 Review of Systems ROS Status of ROS 10 or more systems reviewed and unremarkable except as noted in history and below PFSH [facility] Social History Smoking status: Current every day smoker Exam Narrative Exam Narrative: Vital signs and Nursing Notes reviewed: Patient is afebrile with a normal pulse, blood pressure is mildly elevated at 126/93, she has not hypoxic with pulse ox of 100% on room air General: Awake, alert, oriented, no acute distress, lying comfortably on the stretcher, she is taking deep breaths during the exam HEENT: Normocephalic atraumatic, mucous membranes are moist and pink, eyes are clear, normal conjunctiva, vision is grossly intact, posterior pharynx is normal in appearance. Neck: Supple, no meningeal signs, no anterior or posterior cervical lymphadenopathy Chest: Lungs are clear to auscultation with good air entry, there is no wheezing rhonchi or rales appreciated no accessory muscle use, patient is speaking in complete sentences-no chest wall tenderness to palpation CVS: Regular rate and rhythm S1-S2, no murmurs rubs or gallops, pulses are brisk and equal bilaterally ABD: Soft, nondistended, nontender, no rebound guarding or rigidity, bowel sounds are normal, no pulsatile masses appreciated Extremities: Moving all extremities, no lower extremity tenderness or swelling noted, negative Homans' sign, pulses are brisk and equal bilaterally Skin: Normal in appearance without rash,pallor, petechiae or purpura Neuro: No focal deficits Constitutional Vital Signs, click to edit/add: Last Vital Signs Temp 98.3 F 05/23/24 06:31 Pulse 88 05/23/24 06:31 Resp 16 09/09/24 06:31 BP 126/93 H 05/23/24 06:31 Pulse Ox 100 05/23/24 06:31 O2 Del Method Room Air 05/23/24 06:31 Course Vital Signs Vital signs: Vital Signs Temperature 98.3 F 05/23/24 06:31 Pulse Rate 88 05/23/24 06:31 Respiratory Rate 16 05/23/24 06:31 Blood Pressure 126/93 H 05/23/24 06:31 Pulse Oximetry 100 05/23/24 06:31 Oxygen Delivery Method Room Air 05/23/24 06:31 Temperature 98.3 F 05/23/24 06:31 Pulse Rate 88 05/23/24 06:31 Respiratory Rate 16 05/23/24 06:31 Blood Pressure 126/93 H 05/23/24 06:31 Pulse Oximetry 100 05/23/24 06:31 Oxygen Delivery Method Room Air 05/23/24 06:31 Discharge Plan Discharge Chief Complaint: Upper Respiratory Infection Clinical Impression: Dyspnea Patient Disposition: Still a Patient Prescriptions / Home Meds: No Action cholecalciferol (vitamin D3) 125 mcg (5,000 unit) capsule 5,000 unit PO .COMPLEX Hold Instructions: Doctor's Order Rx Instructions: 5,000 units orally weekly; duloxetine 60 mg capsule,delayed release(DR/EC) 60 mg PO BID acetazolamide 250 mg tablet 250 mg PO Q12H Hold Instructions: Doctor's Order Rexulti 4 mg tablet 4 mg PO DAILY Hold Instructions: Doctor's Order semaglutide 0.25 mg or 0.5 mg (2 mg/3 mL) pen injector 0.5 mg subcut QWEEK Rx Instructions: for 4 weeks naltrexone 50 mg tablet 50 mg PO .once daily Mounjaro 2.5 mg/0.5 mL pen injector 2.5 mg SUBCUT .once a week lamotrigine 25 mg tablet 25 mg PO TID clonazepam 0.5 mg tablet 0.5 mg PO PRN ondansetron 4 mg tablet,disintegrating 4 mg PO Q6H PRN (Reason: nausea/vomiting) Qty: 20 0RF Hold Instructions: Doctor's Order buspirone 5 mg tablet 5 mg PO BID Hold Instructions: Doctor's Order trazodone 100 mg tablet 50 mg PO BEDTIME Hold Instructions: Doctor's Order meclizine 25 mg tablet 25 mg PO TID PRN (Reason: dizziness) Qty: 20 0RF Hold Instructions: Doctor's Order Print Language: Nepali Referrals: Physician,Non-Staff, MD [Primary Care Provider] - 1 week
[2024-05-23 07:32] LABS: Basophils Absolute Auto 0.1 10^3/uL (0.0-0.1); Basophils Percent Auto 0.4 % (0.2-2.0); Eosinophils Absolute Auto 0.2 10^3/uL (0.0-0.7); Eosinophils Percent Auto 0.9 % (0.9-7.0); Hematocrit 38.2 % (36.0-48.0); Hemoglobin 12.7 g/dL (12.0-16.0); Immature Granulocytes Pct Auto 0.5 % (0.0-0.5); Lymphocytes Percent Auto 16.5 % (20.5-60.0); Mean Corpuscular HGB Conc 33.2 g/dL (29.9-35.2); Mean Corpuscular Hemoglobin 30.8 pg (26.7-34.0); Mean Corpuscular Volume 92.5 fL (81.0-99.0); Mean Platelet Volume 10.9 fL (9.5-13.5); Monocytes Absolute Auto 1.4 10^3/uL (0.3-0.8); Monocytes Percent Auto 7.7 % (1.7-12.0); Neutrophils Absolute Auto 13.5 10^3/uL (1.4-6.5); Platelet Count 348 10^3/uL (150-450); Red Blood Count 4.13 10^6/uL (4.20-5.40); Red Cell Distribution Width 16.2 % (11.0-15.0); White Blood Count 18.3 10^3/uL (4.0-11.0)
--- NOTE | 2024-05-23 07:33 | XR_ITS ---
The [address] [address] Patient Name: LEILA HASSAN MRN: [id number] date: 1990 Sex: F Assigned Patient Location: ER Current Patient Location: ED.MAIN Accession/Order Number: [id number] Exam Date: 05/23/2024 07:28 Report Date: 05/23/2024 07:59 At the request of: ANNY MARKER Procedure: XR chest 2V EXAM: CHEST 2 VIEWS HISTORY: SOB TECHNIQUE: PA and lateral views chest. COMPARISON: None. FINDINGS: The lungs are clear. There is no focal lung consolidation, pleural effusion or pneumothorax. Pulmonary vasculature is within normal limits. The cardiomediastinal silhouette is normal. XR/XR chest 2V IMPRESSION: 1. No acute cardiopulmonary disease. Electronically authenticated by: RAVI SYED Date: 05/23/2024 07:59
[2024-05-23 07:52] LABS: Alanine Aminotransferase 25 U/L (14-59); Alkaline Phosphatase 65 U/L (46-116); Anion Gap 12.6; Aspartate Amino Transferase 19 U/L (15-37); BUN Creatinine Ratio 14.3; Bilirubin Total 0.3 mg/dL (0.2-1.0); Calcium 9.5 mg/dL (8.5-10.1); Carbon Dioxide 27.9 mmol/L (21.0-32.0); Chloride 103 mmol/L (98-107); Estimated GFR (African America >60 (>=60); Estimated GFR (Non-African Ame >60 (>=60); Glucose 94 mg/dL (74-106); Potassium 3.5 mmol/L (3.5-5.1); Sodium 140 mmol/L (136-145); Troponin I High Sensitivity <4.0 pg/mL (4.0-51.3)
[2024-05-23 07:53] LABS: Albumin Globulin Ratio 1.1; Albumin Level 3.7 g/dL (3.4-5.0); Globulin 3.3 g/dL
[2024-05-23 07:55] LABS: D Dimer <0.19 mg/L FEU (<=0.59)
--- NOTE | 2024-05-23 08:23 | ED.URI1 ---
HPI - URI/Sore Throat General Chief Complaint: Upper Respiratory Infection Stated Complaint: SOB Time Seen by Provider: 05/23/24 06:29 Source: patient Limitations: no limitations History of Present Illness HPI Narrative: The patient was initially seen by Dr. San and signed out to me after discussing the case with her thoroughly. Please see her full history and physical exam. Related Data Home Medications ?Medication ?Instructions ?Recorded ?Confirmed cholecalciferol (vitamin D3) 125 5,000 unit PO .COMPLEX 06/10/23 04/08/24 mcg (5,000 unit) capsule duloxetine 60 mg capsule,delayed 60 mg PO BID 06/10/23 04/08/24 release acetazolamide 250 mg tablet 250 mg PO Q12H 07/10/23 04/08/24 brexpiprazole 4 mg tablet (Rexulti) 4 mg PO DAILY 07/10/23 04/08/24 buspirone 5 mg tablet 5 mg PO BID 10/14/23 04/08/24 trazodone 100 mg tablet 50 mg PO BEDTIME 10/14/23 04/08/24 semaglutide 0.25 mg or 0.5 mg (2 0.5 mg subcut QWEEK 12/19/23 04/08/24 mg/3 mL) subcutaneous pen injector clonazepam 0.5 mg tablet 0.5 mg PO PRN 04/08/24 04/08/24 lamotrigine 25 mg tablet 25 mg PO TID 04/08/24 04/08/24 naltrexone 50 mg tablet 50 mg PO .once daily 04/08/24 04/08/24 tirzepatide 2.5 mg/0.5 mL 2.5 mg subcut .once a week 04/08/24 04/08/24 subcutaneous pen injector (Yolande) Previous Rx's ?Medication ?Instructions ?Recorded ondansetron 4 mg disintegrating 4 mg PO Q6H PRN nausea/vomiting 08/14/23 tablet #20 tabs meclizine 25 mg tablet 25 mg PO TID PRN dizziness #20 tabs 10/14/23 Allergies Allergy/AdvReac Type Severity Reaction Status Date / Time buspirone [From BuSpar] Allergy Intermediate tachycardia Verified 05/23/24 06:37 aripiprazole [From Abilify] Allergy Unknown Verified 05/23/24 06:37 COCONUT Allergy Mild Hives Uncoded 05/23/24 06:37 [facility] Social History Smoking status: Current every day smoker Exam Constitutional Vital Signs, click to edit/add: Last Vital Signs Temp 98.3 F 05/23/24 06:31 Pulse 88 05/23/24 06:31 Resp 16 05/23/24 06:31 BP 126/93 H 05/23/24 06:31 Pulse Ox 100 05/23/24 06:31 O2 Del Method Room Air 05/23/24 06:31 Course Vital Signs Vital signs: Vital Signs Temperature 98.3 F 05/23/24 06:31 Pulse Rate 88 05/23/24 06:31 Respiratory Rate 16 05/23/24 06:31 Blood Pressure 126/93 H 05/23/24 06:31 Pulse Oximetry 100 05/23/24 06:31 Oxygen Delivery Method Room Air 05/23/24 06:31 Temperature 98.3 F 05/23/24 06:31 Pulse Rate 88 05/23/24 06:31 Respiratory Rate 16 05/23/24 06:31 Blood Pressure 126/93 H 05/23/24 06:31 Pulse Oximetry 100 05/23/24 06:31 Oxygen Delivery Method Room Air 05/23/24 06:31 MDM - URI/Sore Throat MDM Narrative Medical decision making narrative: Her workup including chest x-ray, D-dimer, and troponin is negative and she is able to be discharged home. WBC elevated due to the steroids that she has been taking recently, prescribed by urgent care center. She will continue her current treatment regimen. She also reports that she has been sober from alcohol for 6 days and has started AA. Differential Diagnosis Differential diagnosis: Likely upper respiratory infection, viral infection and other (Pulmonary embolus) Lab Data Attestation: I reviewed the patient's lab results. Labs: Lab Results 05/23/24 Range/Units 07:26 WBC 18.3 H (4.0-11.0) 10^3/uL RBC 4.13 L (4.20-5.40) 10^6/uL Hgb 12.7 (12.0-16.0) g/dL Hct 38.2 (36.0-48.0) % MCV 92.5 (81.0-99.0) fL MCH 30.8 (26.7-34.0) pg MCHC 33.2 (29.9-35.2) g/dL RDW 16.2 H (11.0-15.0) % Plt Count 348 (150-450) 10^3/uL MPV 10.9 (9.5-13.5) fL Neut % (Auto) 74.0 (43.0-75.0) % Lymph % (Auto) 16.5 L (20.5-60.0) % Day % (Auto) 7.7 (1.7-12.0) % Eos % (Auto) 0.9 (0.9-7.0) % Baso % (Auto) 0.4 (0.2-2.0) % Neut # (Auto) 13.5 H (1.4-6.5) 10^3/uL Lymph # (Auto) 3.0 (1.2-3.8) 10^3/uL Day # (Auto) 1.4 H (0.3-0.8) 10^3/uL Eos # (Auto) 0.2 (0.0-0.7) 10^3/uL Baso # (Auto) 0.1 (0.0-0.1) 10^3/uL Abs Immat Gran (auto) 0.10 H (0.00-0.03) 10^3/uL Imm/Tot Granulo (auto) 0.5 (0.0-0.5) % D-Dimer <0.19 (<=0.59) mg/L FEU Sodium 140 (136-145) mmol/L Potassium 3.5 (3.5-5.1) mmol/L Chloride 103 (98-107) mmol/L Carbon Dioxide 27.9 (21.0-32.0) mmol/L Anion Gap 12.6 BUN 10.0 (7.0-18.0) mg/dL Creatinine 0.70 (0.55-1.02) mg/dL Est GFR ( Amer) >60 (>=60) Est GFR (Non-Af Amer) >60 (>=60) BUN/Creatinine Ratio 14.3 Glucose 94 (74-106) mg/dL Calcium 9.5 (8.5-10.1) mg/dL Total Bilirubin 0.3 (0.2-1.0) mg/dL AST 19 (15-37) U/L ALT 25 (14-59) U/L Alkaline Phosphatase 65 (46-116) U/L Troponin I High Sens <4.0 L (4.0-51.3) pg/mL Total Protein 7.0 (6.4-8.2) g/dL Albumin 3.7 (3.4-5.0) g/dL Globulin 3.3 g/dL Albumin/Globulin Ratio 1.1 Imaging Data Chest x-ray: Radiologist's impression: ITS Impressions Chest X-Ray 05/23/24 07:33 IMPRESSION: 1. No acute cardiopulmonary disease. Electronically authenticated by: RAVI SYED Date: 05/23/2024 07:59 ECG Data Attestation: I personally reviewed and interpreted this ECG as follows: (EKG on my interpretation shows sinus rhythm with rate of 76 and no acute change) Discharge Plan Discharge Chief Complaint: Upper Respiratory Infection Clinical Impression: Upper respiratory infection Patient Disposition: Home, Self-Care Time of Disposition Decision: 08:22 Condition: Good Mode of Transportation: Private Vehicle Prescriptions / Home Meds: No Action cholecalciferol (vitamin D3) 125 mcg (5,000 unit) capsule 5,000 unit PO .COMPLEX Hold Instructions: Doctor's Order Rx Instructions: 5,000 units orally weekly; duloxetine 60 mg capsule,delayed release(DR/EC) 60 mg PO BID acetazolamide 250 mg tablet 250 mg PO Q12H Hold Instructions: Doctor's Order Rexulti 4 mg tablet 4 mg PO DAILY Hold Instructions: Doctor's Order semaglutide 0.25 mg or 0.5 mg (2 mg/3 mL) pen injector 0.5 mg subcut QWEEK Rx Instructions: for 4 weeks naltrexone 50 mg tablet 50 mg PO .once daily Mounjaro 2.5 mg/0.5 mL pen injector 2.5 mg SUBCUT .once a week lamotrigine 25 mg tablet 25 mg PO TID clonazepam 0.5 mg tablet 0.5 mg PO PRN ondansetron 4 mg tablet,disintegrating 4 mg PO Q6H PRN (Reason: nausea/vomiting) Qty: 20 0RF Hold Instructions: Doctor's Order buspirone 5 mg tablet 5 mg PO BID Hold Instructions: Doctor's Order trazodone 100 mg tablet 50 mg PO BEDTIME Hold Instructions: Doctor's Order meclizine 25 mg tablet 25 mg PO TID PRN (Reason: dizziness) Qty: 20 0RF Hold Instructions: Doctor's Order Print Language: [place] Instructions: Upper Respiratory Infection (ED) Referrals: Physician,Non-Staff, MD [Primary Care Provider] - 1 week
== END 2024-05-23 08:27 | disposition home or self-care (01) ==
PROVIDERS: Emergency Medicine; Emergency Provider Emergency Medicine
DX: J06.9 Acute upper respiratory infection, unspecified (principal); R06.00 Dyspnea, unspecified; F17.200 Nicotine dependence, unspecified, uncomplicated; F41.9 Anxiety disorder, unspecified
CPT/HCPCS: 36415; 71046; 80053; 84484; 85025; 85378; 93005; 99285

== ENCOUNTER 2024-06-12 10:54 | Emergency (ER) | payer MEDICARE, MEDICAID, SELFPAY ==
[2024-06-12 10:59] VITALS: BP 141/98; PULSE 102; TEMP 36.8; O2SAT 100; BMI 28.7
--- NOTE | 2024-06-12 11:08 | ECG_ITS ---
The 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
--- NOTE | 2024-06-12 11:12 | ED.GENADUL1 ---
HPI HPI - General Adult General Chief complaint: Alcohol Stated complaint: ALCOHOL WITHDRAW Time Seen by Provider: 06/12/24 11:03 Source: patient Mode of arrival: walk-in Limitations: no limitations History of Present Illness HPI narrative: 33-year-old female presents for what she describes as alcohol withdrawal. She has not had a drink for 3 days after a 3-day binge. She has been shaky and nauseous. She has not vomited in 3-1/2 years since she had gastric bypass surgery. She has no thoughts today of harming herself. Related Data Home Medications ?Medication ?Instructions ?Recorded ?Confirmed cholecalciferol (vitamin D3) 125 5,000 unit PO .COMPLEX 06/10/23 04/08/24 mcg (5,000 unit) capsule duloxetine 60 mg capsule,delayed 60 mg PO BID 06/10/23 04/08/24 release acetazolamide 250 mg tablet 250 mg PO Q12H 07/10/23 04/08/24 brexpiprazole 4 mg tablet (Rexulti) 4 mg PO DAILY 07/10/23 04/08/24 buspirone 5 mg tablet 5 mg PO BID 10/14/23 04/08/24 trazodone 100 mg tablet 50 mg PO BEDTIME 10/14/23 04/08/24 semaglutide 0.25 mg or 0.5 mg (2 0.5 mg subcut QWEEK 12/19/23 04/08/24 mg/3 mL) subcutaneous pen injector clonazepam 0.5 mg tablet 0.5 mg PO PRN 04/08/24 04/08/24 lamotrigine 25 mg tablet 25 mg PO TID 04/08/24 04/08/24 naltrexone 50 mg tablet 50 mg PO .once daily 04/08/24 04/08/24 tirzepatide 2.5 mg/0.5 mL 2.5 mg subcut .once a week 04/08/24 04/08/24 subcutaneous pen injector (Yolande) Previous Rx's ?Medication ?Instructions ?Recorded ondansetron 4 mg disintegrating 4 mg PO Q6H PRN nausea/vomiting 08/14/23 tablet #20 tabs meclizine 25 mg tablet 25 mg PO TID PRN dizziness #20 tabs 10/14/23 lorazepam 1 mg tablet (Ativan) 1 mg PO Q8H PRN alcohol withdrawal 06/12/24 3 days #10 tabs Allergies Allergy/AdvReac Type Severity Reaction Status Date / Time buspirone [From BuSpar] Allergy Intermediate tachycardia Verified 05/23/24 06:37 aripiprazole [From Abilify] Allergy Unknown Verified 05/23/24 06:37 COCONUT Allergy Mild Hives Uncoded 05/23/24 06:37 Opioid HPI Opioid Management Most Recent Opioid Data: Last Pain Scale 2 10/14/23 15:35 Review of Systems ROS Narrative A ten point review of systems is negative except as noted above. PFSH PFSH Social History Smoking status: Current every day smoker Little interest or pleasure in doing things: several days Feeling down, depressed, or hopeless: several days Exam Narrative Exam Narrative: Nurses note and vital signs reviewed and patient is not hypoxic. General: The patient appears well and in no apparent distress. Skin: Warm, dry, no pallor noted. There is no rash noted. Head: Normocephalic, atraumatic Eye: Normal conjunctiva, no drainage Ears, Nose, Mouth, and Throat: oral mucosa is moist. Nares patent. Cardiovascular: Regular Rate and Rhythm. Borderline tachycardia Respiratory: Patient is in no distress, no accessory muscle use, lungs are clear to auscultation, no wheezing, rales or rhonchi Back: non-tender GI: Soft and nontender Musculoskeletal: The patient has no evidence of calf tenderness, no pitting edema, symmetrical pulses noted bilaterally Neurological: A&O x4, normal speech Psychiatric: Cooperative Constitutional Vital Signs, click to edit/add: Last Vital Signs Temp 98.2 F 06/12/24 10:59 Pulse 68 06/12/24 11:55 Resp 18 06/12/24 11:55 BP 124/86 06/12/24 11:55 Pulse Ox 100 06/12/24 11:55 O2 Del Method Room Air 06/12/24 11:55 Course Vital Signs Vital signs: Vital Signs Temperature 98.2 F 06/12/24 10:59 Pulse Rate 102 H 06/12/24 10:59 Respiratory Rate 20 06/12/24 10:59 Blood Pressure 141/98 H 06/12/24 10:59 Pulse Oximetry 100 06/12/24 10:59 Oxygen Delivery Method Room Air 06/12/24 10:59 Temperature 98.2 F 06/12/24 10:59 Pulse Rate 68 06/12/24 11:55 Respiratory Rate 18 06/12/24 11:55 Blood Pressure 124/86 06/12/24 11:55 Pulse Oximetry 100 06/12/24 11:55 Oxygen Delivery Method Room Air 06/12/24 11:55 Medical Decision Making MDM Narrative Medical decision making narrative: The patient was given IV fluids and IV Ativan and feels much better. Blood work is appropriate and she is able to be discharged home. She was given a prescription for short course of Ativan. Treatment diagnosis and follow-up were discussed thoroughly. Differential Diagnosis Differential Diagnosis: Alcohol withdrawal, dehydration, anxiety Lab Data Lab results reviewed: Yes I reviewed the patient's lab results Labs: Lab Results 06/12/24 06/12/24 Range/Units 11:20 12:03 WBC 7.2 (4.0-11.0) 10^3/uL RBC 4.04 L (4.20-5.40) 10^6/uL Hgb 12.6 (12.0-16.0) g/dL Hct 37.4 (36.0-48.0) % MCV 92.6 (81.0-99.0) fL MCH 31.2 (26.7-34.0) pg MCHC 33.7 (29.9-35.2) g/dL RDW 15.9 H (11.0-15.0) % Plt Count 311 (150-450) 10^3/uL MPV 11.1 (9.5-13.5) fL Neut % (Auto) 66.0 (43.0-75.0) % Lymph % (Auto) 25.3 (20.5-60.0) % [place] % (Auto) 6.7 (1.7-12.0) % Eos % (Auto) 1.3 (0.9-7.0) % Baso % (Auto) 0.6 (0.2-2.0) % Neut # (Auto) 4.8 (1.4-6.5) 10^3/uL Lymph # (Auto) 1.8 (1.2-3.8) 10^3/uL [place] # (Auto) 0.5 (0.3-0.8) 10^3/uL Eos # (Auto) 0.1 (0.0-0.7) 10^3/uL Baso # (Auto) 0.0 (0.0-0.1) 10^3/uL Abs Immat Gran (auto) 0.01 (0.00-0.03) 10^3/uL Imm/Tot Granulo (auto) 0.1 (0.0-0.5) % Sodium 136 (136-145) mmol/L Potassium 4.3 (3.5-5.1) mmol/L Chloride 103 (98-107) mmol/L Carbon Dioxide 24.2 (21.0-32.0) mmol/L Anion Gap 13.1 BUN 5.0 L (7.0-18.0) mg/dL Creatinine 0.76 (0.55-1.02) mg/dL Est GFR ( Amer) >60 (>=60) Est GFR (Non-Af Amer) >60 (>=60) BUN/Creatinine Ratio 6.6 Glucose 131 H (74-106) mg/dL Calcium 9.7 (8.5-10.1) mg/dL Discharge Plan Discharge Chief Complaint: Alcohol Clinical Impression: Alcohol withdrawal Patient Disposition: Home, Self-Care Time of Disposition Decision: 13:18 Condition: Good Mode of Transportation: Private Vehicle Prescriptions / Home Meds: New lorazepam [Ativan] 1 mg tablet 1 mg PO Q8H PRN (Reason: alcohol withdrawal) 3 Days Qty: 10 0RF No Action cholecalciferol (vitamin D3) 125 mcg (5,000 unit) capsule 5,000 unit PO .COMPLEX Hold Instructions: Doctor's Order Rx Instructions: 5,000 units orally weekly; duloxetine 60 mg capsule,delayed release(DR/EC) 60 mg PO BID acetazolamide 250 mg tablet 250 mg PO Q12H Hold Instructions: Doctor's Order Rexulti 4 mg tablet 4 mg PO DAILY Hold Instructions: Doctor's Order semaglutide 0.25 mg or 0.5 mg (2 mg/3 mL) pen injector 0.5 mg subcut QWEEK Rx Instructions: for 4 weeks naltrexone 50 mg tablet 50 mg PO .once daily Mounjaro 2.5 mg/0.5 mL pen injector 2.5 mg SUBCUT .once a week lamotrigine 25 mg tablet 25 mg PO TID clonazepam 0.5 mg tablet 0.5 mg PO PRN ondansetron 4 mg tablet,disintegrating 4 mg PO Q6H PRN (Reason: nausea/vomiting) Qty: 20 0RF Hold Instructions: Doctor's Order buspirone 5 mg tablet 5 mg PO BID Hold Instructions: Doctor's Order trazodone 100 mg tablet 50 mg PO BEDTIME Hold Instructions: Doctor's Order meclizine 25 mg tablet 25 mg PO TID PRN (Reason: dizziness) Qty: 20 0RF Hold Instructions: Doctor's Order Print Language: Vietnamese Instructions: Alcohol Withdrawal (ED) Referrals: Physician,Non-Staff, MD [Primary Care Provider] - 1 week
--- OUTSIDE RECORDS SUMMARY | 2024-06-12 11:14 | XMS_ITS | CCD ---
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 Performed By: #### 2 4323-8 ####[facility] LABCLIA [id number] [place] [address] Bilirubin [Mass/Vol] 0.3 mg/dL Normal 0.2-1.3 [facility] Comment on above: Order Comment: Speci men Type: BLOOD SPECIMENOrdering Facility: [facility] Address: [address] [place] [address] Performed By: #### 2 4323-8 ####[facility] LABCLIA [id number] [place] [address] Calcium [Mass/Vol] 10.5 mg/dL High 8.5-10.2 [facility] Comment on above: Order Comment: Speci men Type: BLOOD SPECIMENOrdering Facility: [facility] Address: [address] [place] [address] Performed By: #### 2 4323-8 ####[facility] LABCLIA [id number] [place] [address] Chloride [Moles/Vol] 107 mmol/L Normal 98-107 [facility] Comment on above: Order Comment: Speci men Type: BLOOD SPECIMENOrdering Facility: [facility] Address: [address] [place] [address] Performed By: #### 2 4323-8 ####[facility] LABCLIA [id number] [place] [address] CO2 [Moles/Vol] 27 mmol/L Normal 22-30 [facility] Comment on above: Order Comment: Speci men Type: BLOOD SPECIMENOrdering Facility: [facility] Address: [address] [place] [address] Performed By: #### 2 4323-8 ####[facility] LABCLIA [id number] [place] [address] Creatinine [Mass/Vol] 0.68 mg/dL Normal 0.58-0.96 [facility] Comment on above: Order Comment: Philip birmingham Type: BLOOD SPECIMENOrdering Facility: [facility] Address: [address] [place], [place] [address] Performed By: #### 2 4323-8 ####[facility] LABCLIA [id number] [place] [address] Creatinine and Glomerular filtration rate.predicted panel (S/P/Bld) 117 mL/min/1.73m??? Normal >=60 [facility] Comment on above: Order Comment: Philip birmingham Type: BLOOD SPECIMENOrdering Facility: [facility] Address: [address] [place] [address] Result Comment: Brenda mated Glomerular Filtration Rate [...] actual GFR. Performed By: #### 2 4323-8 ####[facility] LABCLIA [id number] [place] [address] Glucose [Mass/Vol] 98 mg/dL Normal 74-99 [facility] Comment on above: Order Comment: Philip birmingham Type: BLOOD SPECIMENOrdering Facility: [facility] Address: [address] [place] [address] Result Comment: The [place] Diabetes Association (ADA) provides guidance for cutoff [...] Standards of Medical Care in Diabetes 2016, [place] Diabetes Association. Diabetes Care. 2016.39(Suppl 1). Performed By: #### 2 4323-8 ####[facility] LABCLIA [id number] [place] [address] Potassium [Moles/Vol] 4.5 mmol/L Normal 3.7-5.1 [facility] Comment on above: Order Comment: Speci men Type: BLOOD SPECIMENOrdering Facility: [facility] Address: [address] [place] [address] Performed By: #### 2 4323-8 ####[facility] LABCLIA [id number] [place] [address] Protein [Mass/Vol] 7.3 g/dL Normal 6.3-8.0 [facility] Comment on above: Order Comment: Speci men Type: BLOOD SPECIMENOrdering Facility: [facility] Address: [address] [place] [address] Performed By: #### 2 4323-8 ####[facility] LABCLIA [id number] [place] [address] Sodium [Moles/Vol] 142 mmol/L Normal 136-144 [facility] Comment on above: Order Comment: Speci men Type: BLOOD SPECIMENOrdering Facility: [facility] Address: [address] [place] [address] Performed By: #### 2 4323-8 ####[facility] LABCLIA [id number] [place] [address] Urea nitrogen [Mass/Vol] 10 mg/dL Normal 7-21 [facility] Comment on above: Order Comment: Speci men Type: BLOOD SPECIMENOrdering Facility: [facility] Address: [address] [place] [address] Performed By: #### 2 4323-8 ####[facility] LABCLIA [id number] [place] [address] HCV Ab Ser Qlon 02-25-2024 HCV Ab Ql (S) Negative Normal Negative [facility] Comment on above: Order Comment: Speci men Type: BLOOD SPECIMENOrdering Facility: [facility] Address: [address] [place] [address] Result Comment: The result suggests no evidence of active infection with Hepatitis C virus. Should recent infection be suspected, repeat testing may be considered 4-6 weeks after this draw. Performed By: #### 1 6128-1 ####[facility] LABIA [id number] [place] [address] [place] HIV 1+2 Ab IA Qlon HIV 1 and 2 Ab IA.rapid Nom (S/P/Bld) Normal [facility] Comment on above: Order Comment: Speci men Type: BLOOD SPECIMENOrdering Facility: [facility] Address: [address] [place] [address] Result Comment: Test not indicated. Performed By: #### 3 1201-7 ####[facility] [id number] [place] [address] [place] HIV 1+2 Ab+HIV1 p24 Ag IA Ql Non-Reactive Normal Nonreactive [facility] Comment on above: Order Comment: Speci men Type: BLOOD SPECIMENOrdering Facility: [facility] Address: [address] [place] [address] Performed By: #### 3 1201-7 ####[facility] [id number] [place] [address] [place] HIV immunoassay testing algorithm interpretation (S/P/Bld) [Interp] Normal [facility] Comment on above: Order Comment: Speci men Type: BLOOD SPECIMENOrdering Facility: [facility] Address: [address] [place] [address] Result Comment: No e vidence of HIV-1 or HIV-2 infection. Should recent infection be suspected, repeat testing may be considered 2-3 weeks after this draw. [place] Rev. Code 3701.243(E): This information has been [...] or diagnoses. Performed By: #### 3 1201-7 ####[facility] LABCLIA [id number] [place] [address] [place] HbA1c (Bld)on 02-25-2024 Average glucose Estimated from glycated hemoglobin (Bld) [Mass/Vol] 111 mg/dL Normal [facility] Comment on above: Order Comment: Speci men Type: BLOOD SPECIMENOrdering Facility: [facility] Address: [address] [place] [address] Result Comment: eAG: (Estimated average glucose) is a calculated value from HgbA1c and is applications sales representative of the average blood glucose level in the last 2-3 month period. Performed By: #### 5 5454-3 ####[facility] LABCLIA [id number] [place] [address] [place] HbA1c (Bld) [Mass fraction] 5.5 % Normal 4.3-5.6 [facility] Comment on above: Order Comment: Speci men Type: BLOOD SPECIMENOrdering Facility: [facility] Address: [address] [place] [address] Result Comment: Amer ican Diabetes Association guidelines indicate that patients with HgbA1c in the range 5.7-6.4% are at increased risk for development of diabetes, and intervention by lifestyle modification may be beneficial. HgbA1c greater or equal to 6.5% is considered diagnostic of diabetes. Performed By: #### 5 5454-3 ####[facility] LABCLIA [id number] [place] [id number] [place] Lipid 1996 panelon 4 Cholesterol [Mass/Vol] 142 mg/dL Normal <200 [facility] Comment on above: Order Comment: Speci men Type: BLOOD SPECIMENOrdering Facility: [facility] Address: [address] [place] [address] Result Comment: <200 mg/dL, Desirable 200-239 mg/dL, Borderline high >239 mg/dL, High Performed By: #### 2 4331-1 ####[facility] LABCLIA [id number] [address] LABCLIA [id number] [place] [address] Cholesterol in HDL [Mass/Vol] 72 mg/dL Normal >39 [facility] Comment on above: Order Comment: Speci men Type: BLOOD SPECIMENOrdering Facility: [facility] Address: [address] [place] [address] Result Comment: 40-5 9 mg/dL, Acceptable >59 mg/dL, High: Negative risk factor for coronary heart disease <40 mg/dL, Low: Positive risk factor for coronary heart disease Performed By: #### 2 4331-1 ####[facility] LABCLIA [id number] [address] LABCLIA [id number] [place] [address] Cholesterol in LDL [Mass/Vol] 60 mg/dL Normal <100 [facility] Comment on above: Order Comment: Speci men Type: BLOOD SPECIMENOrdering Facility: [facility] Address: [address] [place] [address] Result Comment: <100 mg/dL, Optimal 100-129 mg/dL, Near optimal/above optimal 130-159 mg/dL, Borderline high 160-189 mg/dL, High >189 mg/dL, Very high Secondary prevention optimal LDL Cholesterol levels are recommended to be < 70 mg/dL Performed By: #### 2 4331-1 ####[facility] LABCLIA [id number] [address] [address] [facility] LABCLIA [id number] [place] [address] Cholesterol in LDL/Cholesterol in HDL [Mass ratio] 0.83 {ratio} Normal <2.54 [facility] Comment on above: Order Comment: Cecili men Type: BLOOD SPECIMENOrdering Facility: [facility] Address: [address] [place] [address] Result Comment: Eric kasper: 1. National Cholesterol Education Program ATP III Guideline At-A-Glance Quick Desk Reference: National Heart, Lung, and Blood Fate. National Institutes of Health. 2001: NIH Publication No. 01-3305. 2. An International Atherosclerosis Society position paper: global recommendations for the management of dyslipidemia: executive summary, Atherosclerosis. 2014: 232(2):410-413. Performed By: #### 2 4331-1 ####[facility] LABCLIA [id number] [address] LABCLIA [id number] [place] [address] Cholesterol in VLDL [Mass/Vol] 10 mg/dL Normal <30 [facility] Comment on above: Order Comment: Philip birmingham Type: BLOOD SPECIMENOrdering Facility: [facility] Address: [address] [place] [address] Performed By: #### 2 4331-1 ####[facility] LABCLIA [id number] [address] LABCLIA [id number] [place] [address] Cholesterol non HDL [Mass/Vol] 70 mg/dL Normal <130 [facility] Comment on above: Order Comment: Cecili men Type: BLOOD SPECIMENOrdering Facility: [facility] Address: [address] [place] [address] Result Comment: <130 mg/dL, Optimal 130-159 mg/dL, Near optimal/above optimal 160-189 mg/dL, Borderline high 190-219 mg/dL, High >219 mg/dL, Very high Secondary prevention optimal non HDL Cholesterol levels are recommended to be <100 mg/dL Performed By: #### 2 4331-1 ####[facility] LABCLIA [id number] [address] [address] [facility] LABCLIA [id number] [place] [address] Cholesterol.total/Cho lesterol in HDL [Mass ratio] 1.97 {ratio} Normal <5.10 [facility] Comment on above: Order Comment: Speci men Type: BLOOD SPECIMENOrdering Facility: [facility] Address: [address] [place], [place] [address] Performed By: #### 2 4331-1 ####[facility] LABCLIA [id number] [place] [id number] [facility] LABCLIA [id number] [place] [address] FASTING TIME 12 hrs Normal [facility] Comment on above: Order Comment: Speci men Type: BLOOD SPECIMENOrdering Facility: [facility] Address: [address] [place], [place] [address] Performed By: #### 2 4331-1 ####[facility] LABCLIA [id number] [place] [id number] [facility] LABCLIA [id number] [place] [address] Triglyceride [Mass/Vol] 51 mg/dL Normal <150 [facility] Comment on above: Order Comment: Speci men Type: BLOOD SPECIMENOrdering Facility: [facility] Address: [address] [place] [address] Result Comment: <150 mg/dL, Normal 150-199 mg/dL, Borderline high 200-499 mg/dL, High >499 mg/dL, Very high Performed By: #### 2 4331-1 ####[facility] LABCLIA [id number] [address] [address] [facility] LABCLIA [id number] [place] [address] CBC with Diffon 01-13-2024 Abs. Basophil 0.08 k/uL Normal 0.00-0.20 [facility] Comment on above: Performed By: #### ALFONSO PFEIFFER, CDP #### [address] [address] [place]: Harpal Adair MD Abs.Imm.Granulocyte 0.05 k/uL Normal 0.00-0.30 [facility] Comment on above: Performed By: #### ALFONSO PFEIFFER, CDP #### [address] [address] [place]: Harpal Adair MD Abs.Neutrophil (Seg) 7.68 k/uL Normal 1.50-8.10 [facility] Comment on above: Performed By: #### ALFONSO PFEIFFER, CDP #### [facility] [employer] [address] [place] [address] [place]: Harpal Adair MD Basophils/100 WBC (Bld) 1 % Normal 0-2 [facility] Comment on above: Performed By: #### ALFONSO PFEIFFER, CDP #### [facility] [employer] [address] [place] [address] [place]: Harpal Adair MD Eosinophils (Bld) [#/Vol] 0.25 10*3/uL Normal 0.00-0.44 [facility] Comment on above: Performed By: #### ALFONSO PFEIFFER, CDP #### [address] [address] [place]: Harpal Adair MD Eosinophils/100 WBC (Bld) 2 % Normal 1-4 [facility] Comment on above: Performed By: #### ALFONSO PFEIFFER, CDP #### [facility] [employer] [address] [place] [address] [place]: Harpal Adair MD Erythrocyte distribution width (RBC) [Ratio] 18.6 % High 11.8-14.4 [facility] Comment on above: Performed By: #### ALFONSO PFEIFFER, CDP #### [facility] [employer] [address] [place] [address] [place]: Harpal Adair MD Hematocrit (Bld) [Volume fraction] 36.7 % Normal 36.3-47.1 [facility] Comment on above: Performed By: #### ALFONSO PFEIFFER, CDP #### [facility] [employer] [address] [place] [address] [place]: Harpal Adair MD Hemoglobin (Bld) [Mass/Vol] 11.3 g/dL Low 11.9-15.1 [facility] Comment on above: Performed By: #### ALFONSO PFEIFFER, CDP #### [facility] [employer] [address] [place] [address] [place]: Harpal Adair MD Immature granulocytes/100 WBC (Bld) 0 % Normal 0 [facility] Comment on above: Performed By: #### ALFONSO PFEIFFER, CDP #### [facility] [employer] [address] [place] [address] [place]: Harpal Adair MD Lymphocytes (Bld) [#/Vol] 2.30 10*3/uL Normal 1.10-3.70 [facility] Comment on above: Performed By: #### ALFONSO PFEIFFER, CDP #### [facility] [address] [place] [address] [place]: Harpal Adair MD Lymphocytes/100 WBC (Bld) 21 % Low 24-43 [facility] Comment on above: Performed By: #### ALFONSO PFEIFFER, CDP #### [facility] [employer] [address] [place] [address] [place]: Harpal Adair MD MCH (RBC) [Entitic mass] 28.4 pg Normal 25.2-33.5 [facility] Comment on above: Performed By: #### ALFONSO PFEIFFER, CDP #### [facility] [employer] [address] [place] [address] [place]: Harpal Adair MD MCHC (RBC) [Mass/Vol] 30.8 g/dL Normal 28.4-34.8 [facility] Comment on above: Performed By: #### ALFONSO PFEIFFER, CDP #### [address] [address] [place]: Harpal Adair MD MCV (RBC) [Entitic vol] 92.2 fL Normal 82.6-102.9 [facility] Comment on above: Performed By: #### ALFONSO PFEIFFER, CDP #### [address] [address] [place]: Harpal Adair MD Monocytes (Bld) [#/Vol] 0.77 10*3/uL Normal 0.10-1.20 [facility] Comment on above: Performed By: #### ALFONSO PFEIFFER, CDP #### [facility] [employer] [address] [place] [address] [place]: Harpal Adair MD Monocytes/100 WBC (Bld) 7 % Normal 3-12 [facility] Comment on above: Performed By: #### ALFONSO PFEIFFER, CDP #### [facility] [employer] [address] [place] [address] [place]: Harpal Adair MD Neutrophil (Seg) 69 % High 36-65 [facility] Comment on above: Performed By: #### ALFONSO PFEIFFER, CDP #### [facility] [employer] [address] [place] [address] [place]: Harpal Adair MD NRBC Automated 0.0 per 100 WBC Normal 0.0 [facility] Comment on above: Performed By: #### ALFONSO PFEIFFER, CDP #### [facility] [employer] [address] [place] [address] [place]: Harpal Adair MD Platelet mean volume (Bld) [Entitic vol] 11.4 fL Normal 8.1-13.5 [facility] Comment on above: Performed By: #### ALFONSO PFEIFFER, CDP #### [facility] [employer] [address] [place] [address] [place]: Harpal Adair MD Platelets (Bld) [#/Vol] 387 10*3/uL Normal 138-453 [facility] Comment on above: Performed By: #### ALFONSO PFEIFFER, CDP #### [address] [address] [place]: Harpal Adair MD RBC (Bld) [#/Vol] 3.98 10*6/uL Normal 3.95-5.11 [facility] Comment on above: Performed By: #### ALFONSO PFEIFFER, CDP #### [facility] [employer] [address] [place] [address] [place]: Harpal Adair MD RBC morphology finding Nom (Bld) ANISOCYTOSIS PRESENT Normal [facility] Comment on above: Performed By: #### ALFONSO PFEIFFER, CDP #### [facility] [employer] [address] [place] [address] [place]: Harpal Adair MD WBC (Bld) [#/Vol] 11.1 10*3/uL Normal 3.5-11.3 [facility] Comment on above: Performed By: #### ALFONSO PFEIFFER, CDP #### [facility] [employer] [address] [place] [address] [place]: Harpal Adair MD Ferritinon 01-13-2024 Ferritin [Mass/Vol] 9 ng/mL Low 13-150 [facility] Comment on above: Result Comment: FERRITIN Reference Ranges: Adult Males 20 - 60 years: 30 - 400 ng/mL Adult females 17 - 60 years: 13 - 150 ng/mL Adults greater than 60 years: no established reference range Pediatrics: no established reference range Performed By: #### F ALFONSO BELL, CDP #### [employer] [address] [place] [address] [place]: Harpal Adair MD Iron Binding Cap.on 01-13-20 24 % Fe Saturation 9 % Low 20-55 [facility] Comment on above: Performed By: #### ALFONSO PFEIFFER, CDP #### [employer] [address] [place] [address] [place]: Harpal Adair MD Iron [Mass/Vol] 37 ug/dL Normal 37-145 [facility] Comment on above: Performed By: #### ALFONSO PFEIFFER, CDP #### [employer] [address] [place] [address] [place]: Harpal Adair MD Total Fe Binding Cap 390 ug/dL Normal 250-450 [facility] Comment on above: Performed By: #### ALFONSO PFEIFFER, CDP #### [employer] [address] [place] [address] [place]: Harpal Adair MD Unbound Fe Bind Cap 353 ug/dL High 112-347 [facility] Comment on above: Performed By: #### ALFONSO PFEIFFER, CDP #### [employer] [address] [place] [address] [place]: MD Ernesto Naylor 01-05-2024 [facility] -------- JOSÉ ANTONIOSHAZIA ([id number]) 1990 F Date Time Provider Department 01/05/24 [facility] [place] [facility] [place] today, [...] 60 mg by mouth once daily. - qotavcnfiuao-ndx-qbck-FA -vit K (BARIATRIC MULTIVITAMINS) 45 mg iron- [...] Status:Closed by ELIA BAIRES on 01/05/24 Normal [facility] TOXICOLOGY SCRN W/CONF,URINE on 01-05-2024 Amphetamines Confirm (U) [Mass/Vol] Negative Negative [facility] Comment on above: Cutoff threshold at 1000 ng/mL. Barbiturates Urine Negative Negative [facility] Comment on above: Cutoff threshold at 200 ng/mL. Benzodiazepines Urine Negative Negative [facility] Comment on above: Cutoff threshold at 200 ng/mL. Cannabinoids Screen Ql (U) Sent for confirmation Abnormal Negative [facility] Comment on above: Cutoff threshold at 50 ng/mL. Cocaine Ql (U) Negative Negative [facility] Comment on above: Cutoff threshold at 300 ng/mL. Ethanol (U) [Mass/Vol] mg/dL NINF - 11 mg/dL [facility] Interpretation and review of laboratory results Abnormal [facility] Opiates Screen Ql (U) Negative Negative [facility] Comment on above: Cutoff threshold at 300 ng/mL. oxyCODONE cutoff Screen (U) [Mass/Vol] Negative Negative [facility] Comment on above: Cutoff threshold at 100 ng/mL. Phencyclidine Ql (U) Negative Negative [facility] Comment on above: Cutoff threshold at 25 ng/mL. Immunoassay screen o nly. Cross reactivity with other substances can occur with immunoassay screening. Detection of any drug(s) in this urine toxicology panel is presumptive only. These tests are for medical purposes only and should not be used for compliance monitoring, legal, or forensic use. [facility] CANNABINOID CONF, URon 01-03 Cannabinoids Confirm (U) [Mass/Vol] 153 ng/mL High <16 [facility] Comment on above: Order Comment: Speci men Type: URINE SPECIMENOrdering Facility: [facility] Address: [address] [place] [address] Result Comment: Tetr ahydrocannabinol carboxylic acid (THCA) is a metabolite of inacg-3-tkfsamdtaevjuxskjedm which is the main active component of marijuana. Presence of THCA indicates use of marijuana. Performed By: #### C ANNCONFU ####[facility] LABIA [id number] [address] [place] NOTE ([facility]) Normal [facility] Comment on above: Order Comment: Speci men Type: URINE SPECIMENOrdering Facility: [facility] Address: [address] [place] [address] Result Comment: This test is for medical use only. This test was developed and its performance characteristics determined by [facility]'s Rahul Schaefer [facility] Pathology and Laboratory Medicine [facility] ([facility] It has not been cleared or approved by the FDA. -[facility] is regulated under CLIA as qualified to perform high-complexity testing. This test is used for clinical purposes. It should not be regarded as investigational or for research. Performed By: #### C ANNCONFU ####[facility] LABCLIA [id number] [address] [place] CNOVon 01-04-2024 CNOV Office Visit (FPNRMO C) -------- SHAZIA CHOU ([id number]) 1990 F Date Time Provider Department 01/04/24 9:20 AM DEQUANCHELLYNirav Cardenas [facility] During your visit today, we recorded [...] She says that she is originally from [facility] however came up to here today [...] to establish with a new psychiatrist at [facility] in [place]. She also sees a counselor weekly. Current [...] in 1 (more content not included)... Normal [facility] SPECIMEN VALIDITY, URINEon 0 01-04-2024 CHROMATE,URINE <10 Normal <50 [facility] Comment on above: Order Comment: Speci men Type: URINE SPECIMENOrdering Facility: [facility] Address: [address] [place] [address] Performed By: #### L [id number] ####[facility] LABCLIA [id number] [place] [address] [place] CREATININE,URINE 33.7 mg/dL Normal 20.0-300.0 [facility] Comment on above: Order Comment: Speci men Type: URINE SPECIMENOrdering Facility: [facility] Address: [address] [place] [address] Performed By: #### L [id number] ####[facility] LABCLIA [id number] [place] [address] [place] NITRITES,URINE <50 Normal <500 [facility] Comment on above: Order Comment: Speci men Type: URINE SPECIMENOrdering Facility: [facility] Address: [address] [place] [address] Performed By: #### L [id number] ####[facility] LABCLIA [id number] [place] [address] [place] OXIDANTS,URINE 70 mg/L Normal <200 [facility] Comment on above: Order Comment: Speci men Type: URINE SPECIMENOrdering Facility: [facility] Address: [address] [place] [address] Performed By: #### L [id number] ####[facility] LABIA [id number] [place] [address] [place] pH (U) 5.6 [pH] Normal 4.5-8.0 [facility] Comment on above: Order Comment: Speci men Type: URINE SPECIMENOrdering Facility: [facility] Address: [address] [place] [address] Performed By: #### L [id number] ####[facility] LABIA [id number] [place] [address] [place] SPEC GRAVITY,UR 1.019 Normal 1.003-1.035 [facility] Comment on above: Order Comment: Speci men Type: URINE SPECIMENOrdering Facility: [facility] Address: [address] [place] [address] Performed By: #### L [id number] ####[facility] [id number] [place] [address] [place] SPECIMEN VALIDITY QUALITY Specimen quality results within acceptable limits Normal [facility] Comment on above: Order Comment: Speci men Type: URINE SPECIMENOrdering Facility: [facility] Address: [address] [place] [address] Performed By: #### L [id number] ####[facility] LABIA [id number] [place] [address] [place] TOXICOLOGY SCRN W/CONF,URINE on 01-04-2024 Amphetamines Confirm (U) [Mass/Vol] Negative Normal Negative [facility] Comment on above: Order Comment: Speci men Type: URINE SPECIMENOrdering Facility: [facility] Address: [address] [place] [address] Result Comment: Cuto ff threshold at 1000 ng/mL. Performed By: #### U TOXRF ####[facility] LABIA [id number] [place] [address] [place] BARBITURATES, URINE Negative Normal Negative [facility] Comment on above: Order Comment: Speci men Type: URINE SPECIMENOrdering Facility: [facility] Address: [address] [place] [address] Result Comment: Cuto ff threshold at 200 ng/mL. Performed By: #### U TOXRF ####[facility] LABCLIA [id number] [place] [address] [place] BENZODIAZEPINES, UR Negative Normal Negative [facility] Comment on above: Order Comment: Speci men Type: URINE SPECIMENOrdering Facility: [facility] Address: [address] [place] [address] Result Comment: Cuto ff threshold at 200 ng/mL. Performed By: #### U TOXRF ####[facility] LABCLIA [id number] [place] [address] [place] Cannabinoids Screen Ql (U) Sent for confirmation Abnormal Negative [facility] Comment on above: Order Comment: Speci men Type: URINE SPECIMENOrdering Facility: [facility] Address: [address] [place] [address] Result Comment: Cuto ff threshold at 50 ng/mL. Performed By: #### U TOXRF ####[facility] LABCLIA [id number] [place] [address] [place] Cocaine Ql (U) Negative Normal Negative [facility] Comment on above: Order Comment: Speci men Type: URINE SPECIMENOrdering Facility: [facility] Address: [address] [place] [address] Result Comment: Cuto ff threshold at 300 ng/mL. Performed By: #### U TOXRF ####[facility] LABCLIA [id number] [place] [address] [place] Ethanol (U) [Mass/Vol] <11 Normal <11 [facility] Comment on above: Order Comment: Speci men Type: URINE SPECIMENOrdering Facility: [facility] Address: [address] [place] [address] Performed By: #### U TOXRF ####[facility] LABIA [id number] [place] [address] [place] Opiates Screen Ql (U) Negative Normal Negative [facility] Comment on above: Order Comment: Speci men Type: URINE SPECIMENOrdering Facility: [facility] Address: [address] [place] [address] Result Comment: Cuto ff threshold at 300 ng/mL. Performed By: #### U TOXRF ####[facility] LABIA [id number] [place] [address] [place] oxyCODONE cutoff Screen (U) [Mass/Vol] Negative Normal Negative [facility] Comment on above: Order Comment: Speci men Type: URINE SPECIMENOrdering Facility: [facility] Address: [address] [place] [address] Result Comment: Cuto ff threshold at 100 ng/mL. Performed By: #### U TOXRF ####[facility] LABIA [id number] [place] [address] [place] Phencyclidine Ql (U) Negative Normal Negative [facility] Comment on above: Order Comment: Speci men Type: URINE SPECIMENOrdering Facility: [facility] Address: [address] [place] [address] Result Comment: Cuto ff threshold at 25 ng/mL. Performed By: #### U TOXRF ####[facility] LABIA [id number] [place] [address] [place] ECG 12 lead ECGon 12-31-2023 ECG 12 lead ECG [address] [address] Electrocardiograph Report Signed Patient: Shazia Chou MR#: [id number] : 1990 Acct:[id number] Age/Sex: 33 / F ADM Date: 12/31/23 Loc: ER Room: Type: [facility] ER Attending Dr: Ordering Provider: Kenny Javed [...] needs review Confirmed by JULES JANSEN DO ([id number]) on 01/01/2024 6:11:00 AM Referred By: Electronically Signed By:JULES JANSEN DO Transcribed By: MUS Signed By Jules aJnsen DO 12/31 0611 Normal [facility] ED Noteon 2023 ED Note [id number]#[id number] F Normal [facility] Activated partial thrombopla stin time (aPTT) in platelet poor plasma by coagulation aOrdered By: Marii Christiansen on 12-10-2023 aPTT Coag (PPP) [Time] 28.8 s 25.1-36.5 [facility] Comment on above: A hematocrit value g reater than 55% may lead to inaccurate results in coagulation testing. Patients having hematocrit values >55% require a special collection tube for coagulation studies. Please contact the laboratory at [phone] for redraw instructions. Automated basophil %Ordered By: Marii Christiansen on 12-10-2023 Basophils/100 WBC (Bld) 1.0 % Normal . [facility] Comment on above: Performed By: #### B SNOW REMOVAL SUPERVISOR, CK, HS TROP, PT, PTT, BMP, PHOS, MG, T4F, TSH3, HCGQUAL, CBC #### [facility] [address] [place] [address] Automated basophil countOrde red By: Marii Christiansen on 12-10-2023 Basophils (Bld) [#/Vol] 0.1 10*3/uL Normal 0.0-0.2 [facility] Comment on above: Result Comment: PERF ORMED BY: [place] [address] PATHOLOGIST [employer]OOKKEEPER JOHNIE BOSS M.D. Performed By: #### B SNOW REMOVAL SUPERVISOR, CK, HS TROP, PT, PTT, BMP, PHOS, MG, T4F, TSH3, HCGQUAL, CBC #### [address] Automated blood monocyte cou ntOrdered By: Marii Christiansen on 12-10-2023 Monocytes (Bld) [#/Vol] 0.5 10*3/uL Normal 0.0-0.8 [facility] Comment on above: Performed By: #### B SNOW REMOVAL SUPERVISOR, CK, HS TROP, PT, PTT, BMP, PHOS, MG, T4F, TSH3, HCGQUAL, CBC #### [address] Automated eosinophil %Ordere d By: Marii Christiansen on 12-10-2023 Eosinophils/100 WBC (Bld) 1.7 % Normal . [facility] Comment on above: Performed By: #### B SNOW REMOVAL SUPERVISOR, CK, HS TROP, PT, PTT, BMP, PHOS, MG, T4F, TSH3, HCGQUAL, CBC #### [address] Automated eosinophil countOr dered By: Marii Christiansen on 12-10-2023 Eosinophils (Bld) [#/Vol] 0.1 10*3/uL Normal 0.0-0.45 [facility] Comment on above: Performed By: #### B SNOW REMOVAL SUPERVISOR, CK, HS TROP, PT, PTT, BMP, PHOS, MG, T4F, TSH3, HCGQUAL, CBC #### [address] Automated monocyte %Ordered By: Marii Christiansen on 12-10-2023 Monocytes/100 WBC (Bld) 6.4 % Normal . [facility] Comment on above: Performed By: #### B SNOW REMOVAL SUPERVISOR, CK, HS TROP, PT, PTT, BMP, PHOS, MG, T4F, TSH3, HCGQUAL, CBC #### [facility] [address] Automated neutrophil %Ordere d By: Marii Christiansen on 12-10-2023 Neutrophils/100 WBC (Bld) 69.0 % Normal . [facility] Comment on above: Performed By: #### B SNOW REMOVAL SUPERVISOR, CK, HS TROP, PT, PTT, BMP, PHOS, MG, T4F, TSH3, HCGQUAL, CBC #### [address] BNP ser/plasOrdered By: Priya Christiansen on 12-10-2023 Natriuretic peptide B (Bld) [Mass/Vol] 12.0 pg/mL Normal 5-100 [facility] Comment on above: Result Comment: PERF ORMED BY: [place] [address] PATHOLOGIST [employer]OOKKEEPER JOHNIE BOSS M.D. Performed By: #### B SNOW REMOVAL SUPERVISOR, CK, HS TROP, PT, PTT, BMP, PHOS, MG, T4F, TSH3, HCGQUAL, CBC #### [address] Basic Metabolic Panelon 11-13 Creatinine Clr Calc Pharmacy 144.76 Normal [facility] Comment on above: Performed By: #### B SNOW REMOVAL SUPERVISOR, CK, HS TROP, PT, PTT, BMP, PHOS, MG, T4F, TSH3, HCGQUAL, CBC ####[address] GFR/1.73 sq M.predicted MDRD (S/P/Bld) [Vol rate/Area] mL/min/{1.73_m2} Normal [facility] Comment on above: Performed By: #### B SNOW REMOVAL SUPERVISOR, CK, HS TROP, PT, PTT, BMP, PHOS, MG, T4F, TSH3, HCGQUAL, CBC ####[place] [id number] [address] Calcium [Mass/volume] in Ser um or PlasmaOrdered By: Marii Christiansen on 12-10-2023 Calcium [Mass/Vol] 9.3 mg/dL Normal 8.6-10.3 [facility] Comment on above: Performed By: #### B SNOW REMOVAL SUPERVISOR, CK, HS TROP, PT, PTT, BMP, PHOS, MG, T4F, TSH3, HCGQUAL, CBC ####[facility] Carbon dioxide, total [Moles /volume] in Serum or PlasmaOrdered By: Marii Christiansen on 12-10-2023 CO2 [Moles/Vol] 26.2 mmol/L Normal 21.0-31.0 [facility] Comment on above: Performed By: #### B SNOW REMOVAL SUPERVISOR, CK, HS TROP, PT, PTT, BMP, PHOS, MG, T4F, TSH3, HCGQUAL, CBC ####[facility] Chloride [Moles/volume] in S tushar or PlasmaOrdered By: Marii Christiansen on 12-10-2023 Chloride [Moles/Vol] 108 mmol/L High 98-107 [facility] Comment on above: Performed By: #### B SNOW REMOVAL SUPERVISOR, CK, HS TROP, PT, PTT, BMP, PHOS, MG, T4F, TSH3, HCGQUAL, CBC ####[facility] Choriogonadotropin.beta subu nit [Units/volume] in Serum or PlasmaOrdered By: Marii Christiansen on 12-10-2023 HCG.beta subunit Qn Negative [facility] Complete Blood Count Auto Di ffon 12-10-2023 Mean Corpuscular HGB Conc 32.5 g/dL Normal 32.0-35.0 [facility] Comment on above: Performed By: #### B SNOW REMOVAL SUPERVISOR, CK, HS TROP, PT, PTT, BMP, PHOS, MG, T4F, TSH3, HCGQUAL, CBC #### [facility] [address] Monocytes/100 WBC (Bld) 16.94 % Normal 0.00-20.00 [facility] Comment on above: Performed By: #### B SNOW REMOVAL SUPERVISOR, CK, HS TROP, PT, PTT, BMP, PHOS, MG, T4F, TSH3, HCGQUAL, CBC #### [facility] [address] NRBC% 0.1 /100{WBC} Normal 0-0.5 [facility] Comment on above: Performed By: #### B SNOW REMOVAL SUPERVISOR, CK, HS TROP, PT, PTT, BMP, PHOS, MG, T4F, TSH3, HCGQUAL, CBC #### [address] Creatine kinase [Enzymatic a ctivity/volume] in Serum or PlasmaOrdered By: Marii Christiansen on 12-10-2023 CK [Catalytic activity/Vol] 90 U/L Normal 30-223 [facility] Comment on above: Performed By: #### B SNOW REMOVAL SUPERVISOR, CK, HS TROP, PT, PTT, BMP, PHOS, MG, T4F, TSH3, HCGQUAL, CBC ####[address] Creatinine [Mass/volume] in Serum or PlasmaOrdered By: Marii Christiansen on 12-10-2023 Creatinine [Mass/Vol] 0.63 mg/dL Normal 0.60-1.20 [facility] Comment on above: Performed By: #### B SNOW REMOVAL SUPERVISOR, CK, HS TROP, PT, PTT, BMP, PHOS, MG, T4F, TSH3, HCGQUAL, CBC ####[address] ECG 12 lead ECGon 12-10-2023 ECG 12 lead ECG [facility] [place] [address] [place] [address] Electrocardiograph Report Signed Patient: Shazia Chou MR#: [id number] : 1990 Acct:[id number] Age/Sex: 32 / F ADM Date: 12/10/23 Loc: ER Room: Type: [facility] ER Attending Dr: Ordering Provider: Marii [...] sinus rhythm Confirmed by Jaylon YANES DO ([id number]) on 12/10/2023 3:20:27 PM Referred By: Electronically Signed By:Jaylon YANES DO Transcribed By: MUS Signed By Jaylon Yanes DO 0 12/10/23 1520 Normal [facility] Erythrocyte distribution wid th [Ratio] by Automated countOrdered By: Marii Christiansen on 12-10-2023 Erythrocyte distribution width (RBC) [Ratio] 18.2 % High 11.9-15.3 [facility] Comment on above: Performed By: #### B SNOW REMOVAL SUPERVISOR, CK, HS TROP, PT, PTT, BMP, PHOS, MG, T4F, TSH3, HCGQUAL, CBC #### [facility] [address] Erythrocytes [#/volume] in B lood by Automated countOrdered By: Marii Christiansen on 12-10-2023 RBC (Bld) [#/Vol] 3.88 10*6/uL Normal 3.60-5.00 [facility] Comment on above: Performed By: #### B SNOW REMOVAL SUPERVISOR, CK, HS TROP, PT, PTT, BMP, PHOS, MG, T4F, TSH3, HCGQUAL, CBC #### [facility] [address] [place] [id number] [facility] Glucose [Mass/volume] in Ser um or PlasmaOrdered By: Marii Christiansen on 12-10-2023 Glucose [Mass/Vol] 84 mg/dL Normal 70-100 [facility] Comment on above: ADA recommended refe rence rangeRandom Glucose Reference Range is dependent on time and content of last meal. Glucose of more than 200 mg/dL in a nonstressed, ambulatory subject supports the diagnosis of Diabetes Mellitus. Result Comment: [place] om Glucose Reference Range is dependent on time and content of last meal. Glucose of more than 200 mg/dL in a nonstressed, ambulatory subject supports the diagnosis of Diabetes Mellitus. ADA recommended reference range Performed By: #### B SNOW REMOVAL SUPERVISOR, CK, HS TROP, PT, PTT, BMP, PHOS, MG, T4F, TSH3, HCGQUAL, CBC ####[facility] [id number] [place] [address] HCG,Qualitative Serumon 11-13 HCG,Qualitative Serum Negative Normal [facility] Comment on above: Result Comment: PERF ORMED BY: [place] [address] PATHOLOGIST [employer]OOKKEEPER JOHNIE BOSS M.D. Performed By: #### B SNOW REMOVAL SUPERVISOR, CK, HS TROP, PT, PTT, BMP, PHOS, MG, T4F, TSH3, HCGQUAL, CBC ####[address] Hematocrit [Volume Fraction] of Blood by Automated countOrdered By: Marii Christiansen on 12-10-2023 Hematocrit (Bld) [Volume fraction] 34.4 % Normal 34.0-46.4 [facility] Comment on above: Performed By: #### B SNOW REMOVAL SUPERVISOR, CK, HS TROP, PT, PTT, BMP, PHOS, MG, T4F, TSH3, HCGQUAL, CBC #### [facility] [address] [place] [address] Hemoglobin [Mass/volume] in BloodOrdered By: Marii Christiansen on 12-10-2023 Hemoglobin (Bld) [Mass/Vol] 11.2 g/dL Low 11.8-15.4 [facility] Comment on above: Performed By: #### B SNOW REMOVAL SUPERVISOR, CK, HS TROP, PT, PTT, BMP, PHOS, MG, T4F, TSH3, HCGQUAL, CBC #### [facility] [address] [place] [address] INR in Platelet poor plasma by Coagulation assayOrdered By: Marii Christiansen on 12-10-2023 INR Coag (PPP) [Relative time] 1.0 {INR} Normal [facility] Comment on above: INR Therapeutic Rang [...] 3 - 4.5 Performed By: #### B SNOW REMOVAL SUPERVISOR, CK, HS TROP, PT, PTT, BMP, PHOS, MG, T4F, TSH3, HCGQUAL, CBC ####[facility] [id number] Leukocytes [#/volume] correc caitlin for nucleated erythrocytes in Blood by Automated counOrdered By: Marii Christiansen on 12-10-2023 WBC corrected for nucl RBC Auto (Bld) [#/Vol] 7.1 10*3/uL 3.8-11.6 [facility] Leukocytes [#/volume] in Blo od by Automated countOrdered By: Marii Christiansen on 12-10-2023 WBC (Bld) [#/Vol] 7.1 10*3/uL Normal 3.8-11.6 [facility] Comment on above: Performed By: #### B SNOW REMOVAL SUPERVISOR, CK, HS TROP, PT, PTT, BMP, PHOS, MG, T4F, TSH3, HCGQUAL, CBC #### [facility] [address] Lymphocytes [#/volume] in Bl ood by Automated countOrdered By: Marii Christiansen on 12-10-2023 Lymphocytes (Bld) [#/Vol] 1.6 10*3/uL Normal 1.00-4.8 [facility] Comment on above: Performed By: #### B SNOW REMOVAL SUPERVISOR, CK, HS TROP, PT, PTT, BMP, PHOS, MG, T4F, TSH3, HCGQUAL, CBC #### [facility] [address] Lymphocytes/100 leukocytes i n Blood by Automated countOrdered By: Marii Christiansen on 12-10-2023 Lymphocytes/100 WBC (Bld) 21.9 % Normal . [facility] Comment on above: Performed By: #### B SNOW REMOVAL SUPERVISOR, CK, HS TROP, PT, PTT, BMP, PHOS, MG, T4F, TSH3, HCGQUAL, CBC #### [facility] [address] MCH [Entitic mass] by Automa caitlin countOrdered By: Marii Christiansen on 12-10-2023 MCH (RBC) [Entitic mass] 28.8 pg Normal 24.7-34.3 [facility] Comment on above: Performed By: #### B SNOW REMOVAL SUPERVISOR, CK, HS TROP, PT, PTT, BMP, PHOS, MG, T4F, TSH3, HCGQUAL, CBC #### [facility] [address] MCHC Auto (RBC) [Mass/Vol]Or dered By: Marii Christiansen on 12-10-2023 MCHC (RBC) [Mass/Vol] 32.5 g/dL 32.0-35.0 [facility] MCV [Entitic volume] by Auto mated countOrdered By: Marii Christiansen on 12-10-2023 MCV (RBC) [Entitic vol] 88.7 fL Normal 80-100 [facility] Comment on above: Performed By: #### B SNOW REMOVAL SUPERVISOR, CK, HS TROP, PT, PTT, BMP, PHOS, MG, T4F, TSH3, HCGQUAL, CBC #### [facility] [address] Magnesium [Mass/volume] in S tushar or PlasmaOrdered By: Marii Christiansen on 12-10-2023 Magnesium [Mass/Vol] 1.9 mg/dL Normal 1.9-2.7 [facility] Comment on above: Performed By: #### B SNOW REMOVAL SUPERVISOR, CK, HS TROP, PT, PTT, BMP, PHOS, MG, T4F, TSH3, HCGQUAL, CBC ####[facility] [id number] Monocyte distribution width [Entitic volume] in Blood by AutomatedOrdered By: Marii Christiansen on 12-10-2023 Monocyte distribution width Auto (Bld) [Entitic vol] 16.94 % 0.00-20.00 [facility] Neutrophils [#/volume] in Bl ood by Automated countOrdered By: Marii Christiansen on 12-10-2023 Neutrophils (Bld) [#/Vol] 4.9 10*3/uL Normal 1.8-7.7 [facility] Comment on above: Performed By: #### B SNOW REMOVAL SUPERVISOR, CK, HS TROP, PT, PTT, BMP, PHOS, MG, T4F, TSH3, HCGQUAL, CBC #### [facility] [address] [place] [id number] [facility] No Panel InformationOrdered By: Marii Christiansen on 12-10-2023 Estimated GFR (CKD-EPI) > 60.0 mL/Min [facility] Creatinine Clearance (Chem 144.76 [facility] Nucleated erythrocytes [Pres ence] in Blood by Automated countOrdered By: Marii Christiansen on 12-10-2023 Nucleated RBC Auto Ql (Bld) 0.1 /100{WBC} 0-0.5 [facility] Partial Thromboplastin Timeo n 12-10-2023 aPTT Coag (Bld) [Time] 28.8 s Normal 25.1-36.5 [facility] Comment on above: Result Comment: A he matocrit value greater than 55% may lead to inaccurate results in coagulation testing. Patients having hematocrit values >55% require a special collection tube for coagulation studies. Please contact the laboratory at [phone] for redraw instructions. PERFORMED BY: [facility] [address] [place] [address] PATHOLOGIST [employer]OOKKEEPER JOHNIE BOSS M.D. Performed By: #### B SNOW REMOVAL SUPERVISOR, CK, HS TROP, PT, PTT, BMP, PHOS, MG, T4F, TSH3, HCGQUAL, CBC ####[facility] [id number] [place] [address] [facility] Phosphate [Mass/volume] in S tushar or PlasmaOrdered By: Marii Christiansen on 12-10-2023 Phosphate [Mass/Vol] 3.7 mg/dL Normal 2.5-4.5 [facility] Comment on above: Performed By: #### B SNOW REMOVAL SUPERVISOR, CK, HS TROP, PT, PTT, BMP, PHOS, MG, T4F, TSH3, HCGQUAL, CBC ####[facility] [id number] [address] Platelet mean volume [Entiti c volume] in Blood by Automated countOrdered By: Marii Christiansen on 12-10-2023 Platelet mean volume (Bld) [Entitic vol] 9.2 fL Normal 6.3-10.7 [facility] Comment on above: Performed By: #### B SNOW REMOVAL SUPERVISOR, CK, HS TROP, PT, PTT, BMP, PHOS, MG, T4F, TSH3, HCGQUAL, CBC #### [facility] [address] Platelets [#/volume] in Bloo d by Automated countOrdered By: Marii Christiansen on 12-10-2023 Platelets (Bld) [#/Vol] 331 10*3/uL Normal 150-450 [facility] Comment on above: Performed By: #### B SNOW REMOVAL SUPERVISOR, CK, HS TROP, PT, PTT, BMP, PHOS, MG, T4F, TSH3, HCGQUAL, CBC #### [facility] [address] [place] [address] Potassium [Moles/volume] in Serum or PlasmaOrdered By: Marii Christiansen on 12-10-2023 Potassium [Moles/Vol] 4.0 mmol/L Normal 3.5-5.1 [facility] Comment on above: Performed By: #### B SNOW REMOVAL SUPERVISOR, CK, HS TROP, PT, PTT, BMP, PHOS, MG, T4F, TSH3, HCGQUAL, CBC ####[facility] Prothrombin time (PT)Ordered By: Marii Christiansen on 12-10-2023 PT Coag (PPP) [Time] 11.3 s Normal 9.0-12.9 [facility] Comment on above: A hematocrit value g reater than 55% may lead to inaccurate results in coagulation testing. Patients having hematocrit values >55% require a special collection tube for coagulation studies. Please contact the laboratory at [phone] for redraw instructions. Result Comment: A he matocrit value greater than 55% may lead to inaccurate results in coagulation testing. Patients having hematocrit values >55% require a special collection tube for coagulation studies. Please contact the laboratory at [phone] for redraw instructions. Performed By: #### B SNOW REMOVAL SUPERVISOR, CK, HS TROP, PT, PTT, BMP, PHOS, MG, T4F, TSH3, HCGQUAL, CBC ####[address] Serum or plasma anion gap de terminationOrdered By: Marii Christiansen on 12-10-2023 Anion gap [Moles/Vol] 9.8 mmol/L Normal 6.0-15.0 [facility] Comment on above: Performed By: #### B SNOW REMOVAL SUPERVISOR, CK, HS TROP, PT, PTT, BMP, PHOS, MG, T4F, TSH3, HCGQUAL, CBC ####[address] Sodium [Moles/volume] in Ser um or PlasmaOrdered By: Marii Christiansen on 12-10-2023 Sodium [Moles/Vol] 140 mmol/L Normal 136-145 [facility] Comment on above: Performed By: #### B SNOW REMOVAL SUPERVISOR, CK, HS TROP, PT, PTT, BMP, PHOS, MG, T4F, TSH3, HCGQUAL, CBC ####[address] Thyrotropin [Units/volume] i n Serum or PlasmaOrdered By: Marii Christiansen on 12-10-2023 TSH Qn 0.61 m[IU]/L Normal 0.45-5.33 [facility] Comment on above: Performed By: #### B SNOW REMOVAL SUPERVISOR, CK, HS TROP, PT, PTT, BMP, PHOS, MG, T4F, TSH3, HCGQUAL, CBC ####[address] Thyroxine (T4) free [Mass/vo lume] in Serum or PlasmaOrdered By: Marii Christiansen on 12-10-2023 Free T4 [Mass/Vol] 0.82 ng/dL Normal 0.61-1.12 [facility] Comment on above: Performed By: #### B SNOW REMOVAL SUPERVISOR, CK, HS TROP, PT, PTT, BMP, PHOS, MG, T4F, TSH3, HCGQUAL, CBC ####[place] [address] [facility] Troponin I High Sensitivityo n 12-10-2023 Troponin I High Sensitivity < 2.3 Normal 0.0-15.0 [facility] Comment on above: Result Comment: PERF ORMED BY: [place] [address] PATHOLOGIST [employer]ICK[employer]OOKS BOOKKEEPER JOHNIE BOSS M.D. Performed By: #### B SNOW REMOVAL SUPERVISOR, CK, HS TROP, PT, PTT, BMP, PHOS, MG, T4F, TSH3, HCGQUAL, CBC ####[place] [address] [facility] Troponin I.cardiac [Mass/vol ume] in Serum or Plasma by Detection limit <= 0.01 ng/Ordered By: Marii Christiansen on 12-10-2023 Troponin I.cardiac DL <= 0.01 ng/mL [Mass/Vol] < 2.3 pg/mL 0.0-15.0 [facility] Urea nitrogen [Mass/volume] in Serum or PlasmaOrdered By: Marii Christiansen on 12-10-2023 Urea nitrogen [Mass/Vol] 14 mg/dL Normal 7-25 [facility] Comment on above: Performed By: #### B SNOW REMOVAL SUPERVISOR, CK, HS TROP, PT, PTT, BMP, PHOS, MG, T4F, TSH3, HCGQUAL, CBC ####[place] [address] [facility] XR chest 2V*on 12-10-2023 XR chest 2V* [facility] [address] [place] [address] XRay Report Signed Patient: Shazia Chou MR#: [id number] : 1990 Acct:[id number] Age/Sex: 32 / F ADM Date: 12/10/23 Loc: ER Room: Type: [facility] ER Attending Dr: Copies to: Marii [...] Gaye Peraza M.D.12/10/2023 2:29 PM Dictation Location: [place] [address] Transcribed By: [facility] 12/10/23 1429 Dictated By: Gaye Peraza MD 12/10/231427 Signed By: 12/10/23 1429 Normal [facility] Consent for Treatmenton 11-13 Consent for Treatment [id number] F Normal [facility] [place] Mamm Diag w/CAD if [...] very important to your health. The current [employer] [employer] and National Comprehensive Cancer [...] Category 1-Negative Recommendation: Normal interval follow-up Normal [facility] US Breast Unilateral Lt Comp leteon 12-09-2023 US Breast Unilateral Lt Complete Exam Date/Time: 12/09/2023 10:07 EDT Reason for Exam: N63.21 Report PLEASE REFER TO THE MAMMOGRAM REPORT. Ordering Provider: Jennie Ames FINAL REPORT Dictated: 12/09/2023 4:28 pm Mychal Cabezas M.D. Signed (Electronic Signature): 12/09/2023 4:28 pm Signed by: Mychal Cabezas M.D. Transcribed by: MARCO Technologist: KYLE Normal [facility] Physician Orderon 12-08-2023 Physician Order [id number] FF Normal [facility] CT ABDOMEN PELVIS W IV [...] Jacob Dillon DO 10/25/23 Final result Normal [facility] CBC panel Auto (Bld)on 08-31 Erythrocyte distribution width (RBC) [Ratio] 14.7 % Normal 11.5-15.0 [facility] Comment on above: Order Comment: Speci men Type: BLOOD SPECIMEN Ordering Facility: [facility] Address: [address] [place] [address] Performed By: #### 5 8410-2 #### [facility] CLIA [id number] [address] [place] [address] [place] Hematocrit (Bld) [Volume fraction] 36.9 % Normal 36.0-46.0 [facility] Comment on above: Order Comment: Speci men Type: BLOOD SPECIMEN Ordering Facility: [facility] Address: [address] [place] [address] Performed By: #### 5 8410-2 #### [facility] CLIA [id number] [address] [place] [address] [place] Hemoglobin (Bld) [Mass/Vol] 11.7 g/dL Normal 11.5-15.5 [facility] Comment on above: Order Comment: Speci men Type: BLOOD SPECIMEN Ordering Facility: [facility] Address: [address] [place] [address] Performed By: #### 5 8410-2 #### [facility] CLIA [id number] [address] [place] [address] [place] MCH (RBC) [Entitic mass] 29.8 pg Normal 26.0-34.0 [facility] Comment on above: Order Comment: Speci men Type: BLOOD SPECIMEN Ordering Facility: [facility] Address: [address] [place] [address] Performed By: #### 5 8410-2 #### [facility] CLIA [id number] [address] [place] [address] [place] MCHC (RBC) [Mass/Vol] 31.7 g/dL Normal 30.5-36.0 [facility] Comment on above: Order Comment: Speci men Type: BLOOD SPECIMEN Ordering Facility: [facility] Address: [address] [place] [address] Performed By: #### 5 8410-2 #### [facility] CLIA [id number] [address] [place] [address] [place] MCV (RBC) [Entitic vol] 93.9 fL Normal 80.0-100.0 [facility] Comment on above: Order Comment: Speci men Type: BLOOD SPECIMEN Ordering Facility: [facility] Address: [address] [place] [address] Performed By: #### 5 8410-2 #### [facility] CLIA [id number] [address] [place] [address] [place] Nucleated RBC (Bld) [#/Vol] 10*3/uL Normal <0.01 [facility] Comment on above: Order Comment: Speci men Type: BLOOD SPECIMEN Ordering Facility: [facility] Address: [address] [place] [address] Performed By: #### 5 8410-2 #### [facility] CLIA [id number] [address] [place] [address] [place] Platelet mean volume (Bld) [Entitic vol] 11.1 fL Normal 9.0-12.7 [facility] Comment on above: Order Comment: Speci men Type: BLOOD SPECIMEN Ordering Facility: [facility] Address: [address] [place] [address] Performed By: #### 5 8410-2 #### [facility] CLIA [id number] [address] [place] [address] [place] Platelets (Bld) [#/Vol] 297 10*3/uL Normal 150-400 [facility] Comment on above: Order Comment: Speci men Type: BLOOD SPECIMEN Ordering Facility: [facility] Address: [address] [place] [address] Performed By: #### 5 8410-2 #### [facility] CLIA [id number] [address] [place] [address] [place] RBC (Bld) [#/Vol] 3.93 10*6/uL Normal 3.90-5.20 [facility] Comment on above: Order Comment: Speci men Type: BLOOD SPECIMEN Ordering Facility: [facility] Address: [address] [place] [address] Performed By: #### 5 8410-2 #### [facility] CLIA [id number] [address] [place] [address] [place] WBC (Bld) [#/Vol] 6.82 10*3/uL Normal 3.70-11.00 [facility] Comment on above: Order Comment: Speci men Type: BLOOD SPECIMEN Ordering Facility: [facility] Address: [facility] [place] [address] Performed By: #### 5 8410-2 #### [facility] CLIA [id number] [address] [place] [id number] [place] CNOVon 08-31-2023 CNOV Office Visit ([id number] ) -------- CASSIASHAZIA MALDONADO ([id number]) 1990 F Date Time Provider Department 08/31/23 11:00 AM LEONELA GROSSMAN [id number] During your visit today, we recorded the following information about you: Temperature Pulse Blood pressure Weight 97.9 degrees 78/minute 123/88 89.4 kg Height 1.702 m [place], [place] 08/31/2023 11:14 AM Signed What [...] Take 40 mg by mouth once daily. zzvgsidowwsn-lbv-wvrd-FA -vit K (BARIATRIC MULTIVITAMINS) 45 mg iron- [...] measure: Med (more content not included)... Normal [facility] Comprehensive metabolic 2000 panelon 08-31-2023 Albumin [Mass/Vol] 4.4 g/dL Normal 3.9-4.9 [facility] Comment on above: Order Comment: Speci men Type: BLOOD SPECIMEN Ordering Facility: [facility] Address: [address] [place] [address] Performed By: #### L SONALI, 18100-3 #### [facility] CLIA [id number] [address] [place] [address] [place] ALP [Catalytic activity/Vol] 75 U/L Normal 34-123 [facility] Comment on above: Order Comment: Speci men Type: BLOOD SPECIMEN Ordering Facility: [facility] Address: [address] [place] [address] Performed By: #### L SONALI, 95212-4 #### [facility] CLIA [id number] [address] [place] [address] [place] ALT [Catalytic activity/Vol] 16 U/L Normal 7-38 [facility] Comment on above: Order Comment: Speci men Type: BLOOD SPECIMEN Ordering Facility: [facility] Address: [address] [place] [address] Performed By: #### L IPNF, #### [facility] CLIA [id number] [address] [place] [address] [place] Anion gap [Moles/Vol] 11 mmol/L Normal 9-18 [facility] Comment on above: Order Comment: Speci men Type: BLOOD SPECIMEN Ordering Facility: [facility] Address: [address] [place] [address] Performed By: #### L IPNF, #### [facility] CLIA [id number] [place] [address] [place] AST [Catalytic activity/Vol] 21 U/L Normal 13-35 [facility] Comment on above: Order Comment: Speci men Type: BLOOD SPECIMEN Ordering Facility: [facility] Address: [address] [place] [address] Performed By: #### L IPNF, #### [facility] CLIA [id number] [address] [place] [address] [place] Bilirubin [Mass/Vol] 0.2 mg/dL Normal 0.2-1.3 [facility] Comment on above: Order Comment: Speci men Type: BLOOD SPECIMEN Ordering Facility: [facility] Address: [address] [place] [address] Performed By: #### L IPNF, #### [facility] CLIA [id number] [place] [address] [place] Calcium [Mass/Vol] 9.7 mg/dL Normal 8.5-10.2 [facility] Comment on above: Order Comment: Speci men Type: BLOOD SPECIMEN Ordering Facility: [facility] Address: [address] [place] [address] Performed By: #### L IPNF, #### [facility] CLIA [id number] [place] [address] [place] Chloride [Moles/Vol] 106 mmol/L High 97-105 [facility] Comment on above: Order Comment: Speci men Type: BLOOD SPECIMEN Ordering Facility: [facility] Address: [address] [place] [address] Performed By: #### L IPNF, #### [facility] CLIA [id number] [address] [place] [address] [place] CO2 [Moles/Vol] 25 mmol/L Normal 22-30 [facility] Comment on above: Order Comment: Speci men Type: BLOOD SPECIMEN Ordering Facility: [facility] Address: [address] [place] [address] Performed By: #### L IPNF, #### [facility] CLIA [id number] [address] [place] [address] [place] Creatinine [Mass/Vol] 0.55 mg/dL Low 0.58-0.96 [facility] Comment on above: Order Comment: Speci men Type: BLOOD SPECIMEN Ordering Facility: [facility] Address: [address] [place] [address] Performed By: #### L IPNF, #### [facility] CLIA [id number] [address] [place] [address] Creatinine and Glomerular filtration rate.predicted panel (S/P/Bld) 124 mL/min/1.73m??? Normal >=60 [facility] Comment on above: Order Comment: Speci men Type: BLOOD SPECIMEN Ordering Facility: [facility] Address: [address] [place] [address] Result Comment: Brenda mated Glomerular Filtration Rate [...] GFR. Performed By: #### L IPNF, #### [facility] CLIA [id number] [place] [address] [place] Glucose [Mass/Vol] 93 mg/dL Normal 74-99 [facility] Comment on above: Order Comment: Philip birmingham Type: BLOOD SPECIMEN Ordering Facility: [facility] Address: [address] [place] [address] Result Comment: The [place] Diabetes Association (ADA) provides guidance for cutoff [...] Standards of Medical Care in Diabetes 2016, [place] [employer]. Diabetes Care. 2016.39(Suppl 1). Performed By: #### L IPMARTHA, 90387-3 #### [facility] CLIA [id number] [address] [place] [address] [place] Potassium [Moles/Vol] 4.7 mmol/L Normal 3.7-5.1 [facility] Comment on above: Order Comment: Philip birmingham Type: BLOOD SPECIMEN Ordering Facility: [facility] Address: [address] [place] [address] Performed By: #### L IPNF, 69688-5 #### [facility] CLIA [id number] [address] [place] [address] [place] Protein [Mass/Vol] 7.3 g/dL Normal 6.3-8.0 [facility] Comment on above: Order Comment: Philip birmingham Type: BLOOD SPECIMEN Ordering Facility: [facility] Address: [address] [place] [address] Performed By: #### L IPMARTHA, 56276-2 #### [facility] CLIA [id number] [address] [place] [address] [place] Sodium [Moles/Vol] 142 mmol/L Normal 136-144 [facility] Comment on above: Order Comment: Philip birmingham Type: BLOOD SPECIMEN Ordering Facility: [facility] Address: [address] [facility] [place] [address] Performed By: #### L IPNF, 92836-9 #### [facility] CLIA [id number] [place] Urea nitrogen [Mass/Vol] 9 mg/dL Normal 7-21 [facility] Comment on above: Order Comment: Speci valencia Type: BLOOD SPECIMEN Ordering Facility: [facility] Address: [address] [place] [address] Performed By: #### L IPNF, 67169-2 #### [facility] CLIA [id number] [place] HISTORY PHYSICALon HISTORY PHYSICAL HNO ID: [id number] Author: Leonela Grossman MD Service: ? Author [...] Take 40 mg by mouth once daily. walbdshwyood-oys-soug-FA -vit K (BARIATRIC MULTIVITAMINS) 45 mg iron- [...] or problem (more content not included)... Normal [facility] LIPID PANEL, NONFASTINGon Cholesterol [Mass/Vol] 154 mg/dL Normal <200 [facility] Comment on above: Order Comment: Philip birmingham Type: BLOOD SPECIMEN Ordering Facility: [facility] Address: [address] [place] [address] Result Comment: <200 mg/dL, Desirable 200-239 mg/dL, Borderline high >239 mg/dL, High Performed By: #### L IPNF, 36537-7 #### [facility] CLIA [id number] [address] [place] [address] [place] HDL CHOLESTEROL, NF 69 mg/dL Normal >39 [facility] Comment on above: Order Comment: Philip birmingham Type: BLOOD SPECIMEN Ordering Facility: [facility] Address: [address] [place] [address] Result Comment: 40-5 9 mg/dL, Acceptable >59 mg/dL, High: Negative risk factor for coronary heart disease <40 mg/dL, Low: Positive risk factor for coronary heart disease Performed By: #### L IPNF, 01208-6 #### [facility] CLIA [id number] OF [facility] LDL CHOLESTEROL, NF 66 mg/dL Normal <100 [facility] Comment on above: Order Comment: Philip birmingham Type: BLOOD SPECIMEN Ordering Facility: [facility] Address: [address] [place] [address] Result Comment: <100 mg/dL, Optimal 100-129 mg/dL, Near optimal/above optimal 130-159 mg/dL, Borderline high 160-189 mg/dL, High >189 mg/dL, Very high Secondary prevention optimal LDL Cholesterol levels are recommended to be < 70 mg/dL Performed By: #### L IPNF, 65126-2 #### [facility] CLIA [id number] [address] [place] [address] LDL/HDL RATIO, NF 0.96 mg/dL Normal <2.54 [facility] Comment on above: Order Comment: Philip birmingham Type: BLOOD SPECIMEN Ordering Facility: [facility] Address: [address] [place] [address] Result Comment: Refayb kasper: 1. National Cholesterol Education Program ATP III Guideline At-A-Glance Quick Desk Reference: National Heart, Lung, and Blood Fate. National Institutes of Health. 2001: NIH Publication No. 01-3305. 2. An International Atherosclerosis Society position paper: global recommendations for the management of dyslipidemia: executive summary, Atherosclerosis. 2014: 232(2):410-413. Performed By: #### L IPNF, 71701-0 #### [facility] CLIA [id number] [address] [place] [address] [place] [facility] NON HDL CHOL, NF 85 mg/dL Normal <130 [facility] Comment on above: Order Comment: Philip valencia Type: BLOOD SPECIMEN Ordering Facility: [facility] Address: [address] [place] [address] Result Comment: <130 mg/dL, Optimal 130-159 mg/dL, Near optimal/above optimal 160-189 mg/dL, Borderline high 190-219 mg/dL, High >219 mg/dL, Very high Secondary prevention optimal non HDL Cholesterol levels are recommended to be <100 mg/dL Performed By: #### L IPNF, 36552-4 #### [facility] CLIA [id number] [address] [place] [address] [place] T CHOL/HDL RATIO NF 2.23 mg/dL Normal <5.10 [facility] Comment on above: Order Comment: Speci men Type: BLOOD SPECIMEN Ordering Facility: [facility] Address: [address] [place] [address] Performed By: #### L IPNF, 40013-7 #### [facility] CLIA [id number] [address] [place] [address] [place] TRIGLYCERIDES, NF 96 mg/dL Normal <150 [facility] Comment on above: Order Comment: Speci men Type: BLOOD SPECIMEN Ordering Facility: [facility] Address: [address] [place] [address] Result Comment: <150 mg/dL, Normal 150-199 mg/dL, Borderline high 200-499 mg/dL, High >499 mg/dL, Very high Performed By: #### L IPNF, 00946-9 #### [facility] CLIA [id number] [address] [place] [address] [place] VLDL CHOLESTEROL, NF 19 mg/dL Normal <30 [facility] Comment on above: Order Comment: Speci men Type: BLOOD SPECIMEN Ordering Facility: [facility] Address: [address] [place] [address] Performed By: #### L IPNF, 81723-2 #### [facility] CLIA [id number] [address] [place] [address] [place] PHOSPHATIDYLETHANOL (PETH)on 08-31-2023 EER PETH See Note Normal [facility] Comment on above: Order Comment: Speci men Type: BLOOD SPECIMEN Ordering Facility: [facility] Address: [address] [place] [address] Result Comment: Auth orized individuals can access the [employer] Enhanced Report using the following link: [email or web address] Performed By: #### P ETH #### [facility] CLIA [id number] [address] [place] [address] PETH 16:0/18.2 (PLPETH) 244 ng/mL Normal [facility] Comment on above: Order Comment: Speci men Type: BLOOD SPECIMEN Ordering Facility: [facility] Address: [address] [place] [address] Result Comment: Refe rence ranges are not well established. Performed By: #### P ETH #### [facility] CLIA [id number] [address] [place] [address] PETH 16:0/18:1 (POPETH) 169 ng/mL Normal [facility] Comment on above: Order Comment: Speci men Type: BLOOD SPECIMEN Ordering Facility: [facility] Address: [address] [place] [address] Result Comment: PEth 16:0/18:1 (POPEth) Less than 10 ng/mL............Not detected Less than 20 ng/mL............Abstinence or light alcohol consumption 20 - 200 ng/mL................Moderate alcohol consumption Greater than 200 ng/mL........Heavy alcohol consumption or chronic alcohol use (Reference: Sophie Gonzalez and Crystal Zabala 2018 J. Forensic Sci) Performed By: #### P ETH #### [facility] [place] [id number] [address] [place] [address] PETH INTERPRETATION See Note Normal [facility] Comment on above: Order Comment: Speci men Type: BLOOD SPECIMEN Ordering Facility: [facility] Address: [address] [place] [address] Result Comment: Phos phatidylethanol (PEth) is a [...] developed and its performance characteristics determined by [facility]. It has not been cleared or approved by the U.S. Food and Drug Administration. This test was performed in a CLIA-certified laboratory and is intended for clinical purposes. Performed By: [facility] [address] [place] [address] [employer] Bin Tender: Osmar Salcido MD, PhD CLIA Number: [id number] Performed By: #### P ETH #### [facility] CLIA [id number] [address] [place] [address] [id number] -------- SHAZIA CHOU ([id number]) 1990 F Date Time Provider Department 08/21/23 LEONELA GROSSMAN [id number] During your visit today, we recorded the following information about you: Sindy Ruvalcaba RN 08/21/2023 10:19 AM Signed Called made to [facility] to push MRI from 08/20 [...] 40 mg by mouth once daily. - djzgddhncgqx-xxu-ftko-FA -vit K (BARIATRIC MULTIVITAMINS) 45 mg iron- [...] Status:Closed by SINDY RUVALCABA on 08/21/23 Normal [facility] MRI ABDOMEN W WO CONTRAST MR [...] Troy Bond MD 08/20/23 Final result Normal [facility] Vitamin Aon 08-16-2023 Interpretation Normal Normal [facility] Comment on above: Result Comment: (NOT E) This test was developed and its performance characteristics determined by [facility]. It has not been cleared or approved by the US Food and Drug Administration. This test was performed in a CLIA certified laboratory and is intended for clinical purposes. Performed By: [facility] [address] [place] [address] [employer] Bin Tender: Osmar Salcido MD, PhD CLIA Number: [id number] Performed By: #### P THNCA, FEBC, FERI, GLYHGB, VD25 #### [place] [address] Wharf Hand: Harpal Adair MD #### TYREE OLIVO1, AZN #### [facility] [address] [place] [address] Wharf Hand: Patricio Zuñiga MD #### CP, MG, CDP #### [address] [place] [address] Wharf Hand: Hilton Armenta MD Retinol (Vitamin A) 0.60 mg/L Normal 0.30-1.20 [facility] Comment on above: Performed By: #### P THNCA, FEBC, FERI, GLYHGB, VD25 #### [facility] [address] [place], [place] [id number] Wharf Hand: Harpal Adair MD #### AGNES OLIVO, AZN #### [facility] [address] [place], [place] [id number] Wharf Hand: Patricio Zuñiga MD #### ANGEL, MG, CDP #### [address] [place] [address] Wharf Hand: Hilton Armenta MD Retinyl Palmitate <0.02 Normal 0.00-0.10 [facility] Comment on above: Performed By: #### P DENNISA, FEBC, FERI, GLYHGB, VD25 #### [facility] [address] [place], [place] [id number] Wharf Hand: Harpal Adair MD #### AGNES OLIVO, AZN #### [facility] [address] [place], [place] [id number] Wharf Hand: Patricio Zuñiga MD #### CP, MG, CDP #### [address] [place] [address] Wharf Hand: Hilton Armenta MD Alanine aminotransferase [En zymatic activity/volume] in Serum or PlasmaOrdered By: Yoli Norris on 08-15-2023 ALT [Catalytic activity/Vol] 18 U/L Normal 7-52 [facility] Comment on above: Performed By: #### C BC, HEPATIC, BMP, LIPASE #### [facility] [address] [place] [address] [facility] Albumin [Mass/volume] in Ser um or Plasma by Bromocresol green (BCG) dye binding methoOrdered By: Yoli Norris on 08-15-2023 Albumin BCG dye [Mass/Vol] 4.6 g/dL 3.5-5.7 [facility] Alkaline phosphatase [Enzyma tic activity/volume] in Serum or PlasmaOrdered By: Yoli Norris on 08-15-2023 ALP [Catalytic activity/Vol] 77 U/L Normal 34-104 [facility] Comment on above: Performed By: #### C BC, HEPATIC, BMP, LIPASE #### [address] Aspartate aminotransferase [ Enzymatic activity/volume] in Serum or PlasmaOrdered By: Yoli Norris on 08-15-2023 AST [Catalytic activity/Vol] 18 U/L Normal 13-39 [facility] Comment on above: Performed By: #### C BC, HEPATIC, BMP, LIPASE #### [address] Automated basophil %Ordered By: Yoli Norris on 08-15-2023 Basophils/100 WBC (Bld) 0.5 % Normal . [facility] Comment on above: Performed By: #### C BC, HEPATIC, BMP, LIPASE #### [facility] [address] [place] [address] Automated basophil countOrde red By: Yoli Norris on 08-15-2023 Basophils (Bld) [#/Vol] 0.1 10*3/uL Normal 0.0-0.2 [facility] Comment on above: Result Comment: PERF ORMED BY: [place] [address] PATHOLOGIST [employer] JOHNIE BOSS M.D. Performed By: #### C BC, HEPATIC, BMP, LIPASE #### [facility] [address] [place] [address] Automated blood monocyte cou ntOrdered By: Yoli Norris on 08-15-2023 Monocytes (Bld) [#/Vol] 0.6 10*3/uL Normal 0.0-0.8 [facility] Comment on above: Performed By: #### C BC, HEPATIC, BMP, LIPASE #### [address] Automated eosinophil %Ordere d By: Yoli Jr on 08-15-2023 Eosinophils/100 WBC (Bld) 2.1 % Normal . [facility] Comment on above: Performed By: #### C BC, HEPATIC, BMP, LIPASE #### [address] Automated eosinophil countOr dered By: Yoli Jr on 08-15-2023 Eosinophils (Bld) [#/Vol] 0.2 10*3/uL Normal 0.0-0.45 [facility] Comment on above: Performed By: #### C BC, HEPATIC, BMP, LIPASE #### [address] Automated monocyte %Ordered By: Yoli Norris on 08-15-2023 Monocytes/100 WBC (Bld) 5.0 % Normal . [facility] Comment on above: Performed By: #### C BC, HEPATIC, BMP, LIPASE #### [address] Automated neutrophil %Ordere d By: Yoli Norris on 08-15-2023 Neutrophils/100 WBC (Bld) 74.6 % Normal . [facility] Comment on above: Performed By: #### C BC, HEPATIC, BMP, LIPASE #### [address] Automated urine color determ inationOrdered By: Yoli Norris on 08-15-2023 Color (U) Yellow Normal Yellow [facility] Comment on above: Order Comment: Name Collection Type:: Clean-Voided Midstream Performed By: #### U A, UHCG #### [address] Basic Metabolic Panelon Creatinine Clr Calc Pharmacy 117.62 Normal [facility] Comment on above: Performed By: #### C BC, HEPATIC, BMP, LIPASE #### [address] GFR/1.73 sq M.predicted MDRD (S/P/Bld) [Vol rate/Area] mL/min/{1.73_m2} Normal [facility] Comment on above: Performed By: #### C BC, HEPATIC, BMP, LIPASE #### [address] Bilirubin Test strip Ql (U)O rdered By: Yoli Norris on 08-15-2023 Bilirubin Ql (U) Negative Negative [facility] Bilirubin.direct [Mass/volum e] in Serum or PlasmaOrdered By: Yoli Norris on 08-15-2023 Bilirubin.direct [Mass/Vol] 0.00 mg/dL 0.03-0.18 [facility] Comment on above: If the DBIL is less than 0.1, IBIL is not able to becalculated. Bilirubin.total [Mass/volume ] in Serum or PlasmaOrdered By: Yoli Norris on 08-15-2023 Bilirubin [Mass/Vol] 0.3 mg/dL Normal 0.3-1.0 [facility] Comment on above: Performed By: #### C BC, HEPATIC, BMP, LIPASE #### [address] abdomen pelvis w conon CT abdomen pelvis w con [facility] [place] [address] CT Scan Report Signed Patient: Shazia Chou MR#: [id number] : 1990 Acct:[id number] Age/Sex: 32 / F ADM Date: 08/15/23 Loc: ER Room: Type: [facility] ER Attending Dr: Copies to: Yoli [...] Gaye Peraza M.D.08/15/2023 1:03 PM Dictation Location: [place] [address] Transcribed By: [facility] 08/15/23 1303 Dictated By: Gaye Peraza MD 08/15/23 1256 Signed By: 08/15/23 1303 Normal [facility] Calcium [Mass/volume] in Ser um or PlasmaOrdered By: Yoli Norris on 08-15-2023 Calcium [Mass/Vol] 9.8 mg/dL Normal 8.6-10.3 [facility] Comment on above: Performed By: #### C BC, HEPATIC, BMP, LIPASE #### [facility] [address] [place] [address] Carbon dioxide, total [Moles /volume] in Serum or PlasmaOrdered By: Yoli Norris on 08-15-2023 CO2 [Moles/Vol] 21.8 mmol/L Normal 21.0-31.0 [facility] Comment on above: Performed By: #### C BC, HEPATIC, BMP, LIPASE #### [address] Chloride [Moles/volume] in S tushar or PlasmaOrdered By: Yoli Norris on 08-15-2023 Chloride [Moles/Vol] 109 mmol/L High 98-107 [facility] Comment on above: Performed By: #### C BC, HEPATIC, BMP, LIPASE #### [address] Complete Blood Count Auto Di ffon 08-15-2023 Mean Corpuscular HGB Conc 32.7 g/dL Normal 32.0-35.0 [facility] Comment on above: Performed By: #### C BC, HEPATIC, BMP, LIPASE #### [address] Monocytes/100 WBC (Bld) 15.46 % Normal 0.00-20.00 [facility] Comment on above: Performed By: #### C BC, HEPATIC, BMP, LIPASE #### [address] NRBC% 0.0 /100{WBC} Normal 0-0.5 [facility] Comment on above: Performed By: #### C BC, HEPATIC, BMP, LIPASE #### [address] Creatinine [Mass/volume] in Serum or PlasmaOrdered By: Yoli Norris on 08-15-2023 Creatinine [Mass/Vol] 0.76 mg/dL Normal 0.60-1.20 [facility] Comment on above: Performed By: #### C BC, HEPATIC, BMP, LIPASE #### [address] Erythrocyte distribution wid th [Ratio] by Automated countOrdered By: Yoli Norris on 08-15-2023 Erythrocyte distribution width (RBC) [Ratio] 15.1 % Normal 11.9-15.3 [facility] Comment on above: Performed By: #### C BC, HEPATIC, BMP, LIPASE #### [facility] [address] Erythrocytes [#/volume] in B lood by Automated countOrdered By: Yoli Norris on 08-15-2023 RBC (Bld) [#/Vol] 4.03 10*6/uL Normal 3.60-5.00 [facility] Comment on above: Performed By: #### C BC, HEPATIC, BMP, LIPASE #### [facility] [address] Glucose [Mass/volume] in Ser um or PlasmaOrdered By: Yoli Norris on 08-15-2023 Glucose [Mass/Vol] 85 mg/dL Normal 70-100 [facility] Comment on above: ADA recommended refe rence rangeRandom Glucose Reference Range is dependent on time and content of last meal. Glucose of more than 200 mg/dL in a nonstressed, ambulatory subject supports the diagnosis of Diabetes Mellitus. Result Comment: [place] om Glucose Reference Range is dependent on time and content of last meal. Glucose of more than 200 mg/dL in a nonstressed, ambulatory subject supports the diagnosis of Diabetes Mellitus. ADA recommended reference range Performed By: #### C BC, HEPATIC, BMP, LIPASE #### [address] HCG ( test) IA.rapi d Ql (U)Ordered By: Yoli Norris on 08-15-2023 HCG ( test) Ql (U) Negative [facility] HCG,Urineon 08-15-2023 Beta HCG ( test) Ql (U) Negative Normal [facility] Comment on above: Order Comment: Name Collection Type:: Clean-Voided Midstream Result Comment: PERF ORMED BY: [place] [address] PATHOLOGIST [employer] JOHNIE BOSS M.D. Performed By: #### U A, UHCG #### [address] Hematocrit [Volume Fraction] of Blood by Automated countOrdered By: Yoli Norris on 08-15-2023 Hematocrit (Bld) [Volume fraction] 37.2 % Normal 34.0-46.4 [facility] Comment on above: Performed By: #### C BC, HEPATIC, BMP, LIPASE #### [address] Hemoglobin [Mass/volume] in BloodOrdered By: Yoli Norris on 08-15-2023 Hemoglobin (Bld) [Mass/Vol] 12.2 g/dL Normal 11.8-15.4 [facility] Comment on above: Performed By: #### C BC, HEPATIC, BMP, LIPASE #### [address] Hepatic Panelon 08-15-2023 Albumin [Mass/Vol] 4.6 g/dL Normal 3.5-5.7 [facility] Comment on above: Performed By: #### C BC, HEPATIC, BMP, LIPASE #### [address] Bilirubin,Indirect 0.3 mg/dL Normal [facility] Comment on above: Performed By: #### C BC, HEPATIC, BMP, LIPASE #### [address] Bilirubin.indirect [Mass/Vol] 0.00 mg/dL Low 0.03-0.18 [facility] Comment on above: Result Comment: If t he DBIL is less than 0.1, IBIL is not able to be calculated. Performed By: #### C BC, HEPATIC, BMP, LIPASE #### [address] Ketones Auto test strip (U) [Mass/Vol]Ordered By: Yoli Norris on 08-15-2023 Ketones (U) [Mass/Vol] Negative Negative [facility] Leukocytes [#/volume] correc caitlin for nucleated erythrocytes in Blood by Automated counOrdered By: Yoli Norris on 08-15-2023 WBC corrected for nucl RBC Auto (Bld) [#/Vol] 11.3 10*3/uL 3.8-11.6 [facility] Leukocytes [#/volume] in Blo od by Automated countOrdered By: Yoli Norris on 08-15-2023 WBC (Bld) [#/Vol] 11.3 10*3/uL Normal 3.8-11.6 [facility] Comment on above: Performed By: #### C BC, HEPATIC, BMP, LIPASE #### [address] Lipase [Enzymatic activity/v olume] in Serum or PlasmaOrdered By: Yoli Norris on 08-15-2023 Lipase [Catalytic activity/Vol] 32.0 U/L Normal 11.0-82.0 [facility] Comment on above: Result Comment: PERF ORMED BY: [place] [address] PATHOLOGIST [employer] JOHNIE BOSS M.D. Performed By: #### C BC, HEPATIC, BMP, LIPASE #### [address] Lymphocytes [#/volume] in Bl ood by Automated countOrdered By: Yoli Norris on 08-15-2023 Lymphocytes (Bld) [#/Vol] 2.0 10*3/uL Normal 1.00-4.8 [facility] Comment on above: Performed By: #### C BC, HEPATIC, BMP, LIPASE #### [address] Lymphocytes/100 leukocytes i n Blood by Automated countOrdered By: Yoli Norris on 08-15-2023 Lymphocytes/100 WBC (Bld) 17.8 % Normal . [facility] Comment on above: Performed By: #### C BC, HEPATIC, BMP, LIPASE #### [address] MCH [Entitic mass] by Automa caitlin countOrdered By: Yoli Norris on 08-15-2023 MCH (RBC) [Entitic mass] 30.2 pg Normal 24.7-34.3 [facility] Comment on above: Performed By: #### C BC, HEPATIC, BMP, LIPASE #### [address] MCHC Auto (RBC) [Mass/Vol]Or dered By: Yoli Norris on 08-15-2023 MCHC (RBC) [Mass/Vol] 32.7 g/dL 32.0-35.0 [facility] MCV [Entitic volume] by Auto mated countOrdered By: Yoli Norris on 08-15-2023 MCV (RBC) [Entitic vol] 92.4 fL Normal 80-100 [facility] Comment on above: Performed By: #### C BC, HEPATIC, BMP, LIPASE #### [facility] [address] Monocyte distribution width [Entitic volume] in Blood by AutomatedOrdered By: Yoli Norris on 08-15-2023 Monocyte distribution width Auto (Bld) [Entitic vol] 15.46 % 0.00-20.00 [facility] Neutrophils [#/volume] in Bl ood by Automated countOrdered By: Yoli Norris on 08-15-2023 Neutrophils (Bld) [#/Vol] 8.4 10*3/uL High 1.8-7.7 [facility] Comment on above: Performed By: #### C BC, HEPATIC, BMP, LIPASE #### [facility] [address] [place] [address] Nitrite Test strip Ql (U)Ord ered By: Yoli Norris on 08-15-2023 Nitrite Ql (U) Negative Negative [facility] No Panel InformationOrdered By: Yoli Norris on 08-15-2023 Estimated GFR (CKD-EPI) > 60.0 mL/Min [facility] Creatinine Clearance (Chem 117.62 [facility] Nucleated erythrocytes [Pres ence] in Blood by Automated countOrdered By: Yoli Norris on 08-15-2023 Nucleated RBC Auto Ql (Bld) 0.0 /100{WBC} 0-0.5 [facility] Platelet mean volume [Entiti c volume] in Blood by Automated countOrdered By: Yoli Norris on 08-15-2023 Platelet mean volume (Bld) [Entitic vol] 9.2 fL Normal 6.3-10.7 [facility] Comment on above: Performed By: #### C BC, HEPATIC, BMP, LIPASE #### [facility] [address] [place] [address] Platelets [#/volume] in Bloo d by Automated countOrdered By: Yoli Norris on 08-15-2023 Platelets (Bld) [#/Vol] 321 10*3/uL Normal 150-450 [facility] Comment on above: Performed By: #### C BC, HEPATIC, BMP, LIPASE #### [facility] [address] [place] [address] Potassium [Moles/volume] in Serum or PlasmaOrdered By: Yoli Norris on 08-15-2023 Potassium [Moles/Vol] 3.5 mmol/L Normal 3.5-5.1 [facility] Comment on above: Performed By: #### C BC, HEPATIC, BMP, LIPASE #### [address] Protein Auto test strip (U) [Mass/Vol]Ordered By: Yoli Norris on 08-15-2023 Protein (U) [Mass/Vol] Negative Negative [facility] Protein [Mass/volume] in Ser um or PlasmaOrdered By: Yoli Norris on 08-15-2023 Protein [Mass/Vol] 7.8 g/dL Normal 6.4-8.9 [facility] Comment on above: Performed By: #### C BC, HEPATIC, BMP, LIPASE #### [address] Serum globulin measurement b y calculation (mass/volume)Ordered By: Yoli Norris on 08-15-2023 Globulin (S) [Mass/Vol] 3.2 g/dL [facility] Comment on above: Performed By: #### C BC, HEPATIC, BMP, LIPASE #### [facility] [address] [place] [address] Serum or plasma albumin/glob ulin mass ratioOrdered By: Yoli Norris on 08-15-2023 Albumin/Globulin [Mass ratio] 1.4 {ratio} [facility] Comment on above: Performed By: #### C BC, HEPATIC, BMP, LIPASE #### [address] Serum or plasma anion gap de terminationOrdered By: Yoli Norris on 12-02-2023 Anion gap [Moles/Vol] 12.7 mmol/L Normal 6.0-15.0 [facility] Comment on above: Performed By: #### C BC, HEPATIC, BMP, LIPASE #### [address] Serum or plasma non-glucuron idated bilirubin measurement (mass/volume)Ordered By: Yoli Norris on 08-15-2023 Bilirubin.indirect [Mass/Vol] 0.3 mg/dL [facility] Sodium [Moles/volume] in Ser um or PlasmaOrdered By: Yoli Norris on 08-15-2023 Sodium [Moles/Vol] 140 mmol/L Normal 136-145 [facility] Comment on above: Performed By: #### C BC, HEPATIC, BMP, LIPASE #### [address] Specific gravity Auto test s trip (U) [Rel density]Ordered By: Yoli Norris on 08-15-2023 Specific gravity (U) [Rel density] 1.007 1.001-1.030 [facility] Urea nitrogen [Mass/volume] in Serum or PlasmaOrdered By: Yoli Norris on 08-15-2023 Urea nitrogen [Mass/Vol] 11 mg/dL Normal 7-25 [facility] Comment on above: Performed By: #### C BC, HEPATIC, BMP, LIPASE #### [address] Urinalysison 08-15-2023 Appearance (U) Clear Normal Clear [facility] Comment on above: Order Comment: Name Collection Type:: Clean-Voided Midstream Performed By: #### U A, UHCG #### [address] Bilirubin,Urine Negative Normal Negative [facility] Comment on above: Order Comment: Name Collection Type:: Clean-Voided Midstream Performed By: #### U A, UHCG #### [address] Glucose Ql (U) Normal Normal Normal [facility] Comment on above: Order Comment: Name Collection Type:: Clean-Voided Midstream Performed By: #### U A, UHCG #### [place] [address] [place] Ketones Ql (U) Negative Normal Negative [facility] Comment on above: Order Comment: Name Collection Type:: Clean-Voided Midstream Performed By: #### U A, UHCG #### [address] Leukocyte esterase Test strip Ql (U) Negative Normal Negative [facility] Comment on above: Order Comment: Name Collection Type:: Clean-Voided Midstream Performed By: #### U A, UHCG #### [place] [address] [place] Nitrite,Urine Negative Normal Negative [facility] Comment on above: Order Comment: Name Collection Type:: Clean-Voided Midstream Performed By: #### U A, UHCG #### [place] [address] [place] Occult Blood,Urine Negative Normal Negative [facility] Comment on above: Order Comment: Name Collection Type:: Clean-Voided Midstream Performed By: #### U A, UHCG #### [place] [address] [place] Protein,Urine Negative Normal Negative [facility] Comment on above: Order Comment: Name Collection Type:: Clean-Voided Midstream Performed By: #### U A, UHCG #### [place] [address] [place] Specificy [place],Urine 1.007 Normal 1.001-1.030 [facility] Comment on above: Order Comment: Name Collection Type:: Clean-Voided Midstream Performed By: #### U A, UHCG #### [place] [address] [place] Urobilinogen,Urine Normal Normal Normal [facility] Comment on above: Order Comment: Name Collection Type:: Clean-Voided Midstream Performed By: #### U A, UHCG #### [address] [place] [address] [facility] Urine clarity by refractomet ry automatedOrdered By: Yoli Norris on 08-15-2023 Clarity Refractometry automated (U) Clear Clear [facility] Urine glucose measurement by automated test strip (mass/volume)Ordered By: Yoli Norris on 08-15-2023 Glucose Auto test strip (U) [Mass/Vol] Normal mg/dL Normal [facility] Urine hemoglobin detection b y automated test stripOrdered By: Yoli Norris on 08-15-2023 Hemoglobin Auto test strip Ql (U) Negative Negative [facility] Urine leukocyte esterase det ection by automated test stripOrdered By: Yoli Norris on 08-15-2023 Leukocyte esterase Auto test strip Ql (U) Negative Negative [facility] Urine pH measurement by auto mated test stripOrdered By: Yoli Norris on 08-15-2023 pH (U) 8.0 [pH] Normal 5.0-9.0 [facility] Comment on above: Order Comment: Name Collection Type:: Clean-Voided Midstream Performed By: #### [facility], [facility] #### [place] [id number] [facility] Urobilinogen Auto test strip (U) [Mass/Vol]Ordered By: Yoli Norris on 08-15-2023 Urobilinogen (U) [Mass/Vol] Normal mg/dL Normal [facility] Vitamin B1on 08-15-2023 Vitamin B1 145 nmol/L Normal 70-180 [facility] Comment on above: Result Comment: [...] developed and its performance characteristics determined by [employer]. It has not been cleared or approved by the [place] Food and Drug Administration. This test was performed in a CLIA certified laboratory and is intended for clinical purposes. Performed By: [employer] [address] [place] [address] [employer] Bin Tender: Osmar Salcido MD, PhD CLIA Number: [id number] Performed By: #### P THNCA, FEBC, FERI, GLYHGB, VD25 #### [place] [address] [place] [address] Wharf Hand: Harpal Adair MD #### AGNES OLIVO, AZN #### [facility] [address] [place] [address] Wharf Hand: Patricio Zuñiga MD #### CP, MG, CDP #### [facility] [address] [place] [address] Wharf Hand: Hilton Armenta MD Zinc, Serumon 08-14-2023 Zinc, Serum 95.3 ug/dL Normal 60.0-120.0 [facility] Comment on above: Result Comment: [...] developed and its performance characteristics determined by [employer]. It has not been cleared or approved by the [place] Food and Drug Administration. This test was performed in a CLIA certified laboratory and is intended for clinical purposes. Performed By: [employer] [address] [place] [address] [employer] Tender: Osmar Salcido MD, PhD CLIA Number: [id number] Performed By: #### P THNCA, FEBC, FERI, GLYHGB, VD25 #### [place] [address] [place] [address] Wharf Hand: Harpal Adair MD #### AGNES OLIVO, AZN #### [address] [address] Wharf Hand: Patricio Zuñiga MD #### CP, MG, CDP #### [address] [place], [place] [id number] Wharf Hand: Hilton Armenta MD B12/Folate Panelon 3 Folic Acid >20.0 Normal >4.8 [facility] Comment on above: Performed By: #### P GINCA, FEBC, FERI, GLYHGB, VD25 #### [place] [address] [place] [address] Wharf Hand: Harpal Adair MD #### AGNES OLIVO, AZN #### [facility] [address] [place] [address] Wharf Hand: Patricio Zuñiga MD #### ANGEL, MG, CDP #### [address] [place] [phone] Wharf Hand: Hilton Armenta MD Cobalamin (Vitamin B12) [Mass/Vol] 632 pg/mL Normal 232-1245 [facility] Comment on above: Performed By: #### ALFONSO COSTA, FERI, GLYHGB, VD25 #### [address] [address] Wharf Hand: Harpal Adair MD #### AGNES OLIVO, AZN #### [facility] [address] [place] [address] Wharf Hand: Patricio Zuñiga MD #### CP, MG, CDP #### [address] [place], [place] [id number] Wharf Hand: Hilton Armenta MD CBC with Diffon 08-12-2023 Abs. Basophil 0.06 k/uL Normal 0.00-0.20 [facility] Comment on above: Performed By: #### P THNCA, FEBC, FERI, GLYHGB, VD25 #### [address] [address] Wharf Hand: Harpal Adair MD #### AGNES OLIVO, AZN #### [facility] [address] [place], [place] [id number] Wharf Hand: Patricio Zuñiga MD #### ANGEL, MG, CDP #### [address] [place] [phone] Wharf Hand: Hilton Armenta MD Abs.Imm.Granulocyte 0.03 k/uL Normal 0.00-0.30 [facility] Comment on above: Performed By: #### ALFONSO COSTA, ARNOLDO, GLYHGB, VD25 #### [address] [address] Wharf Hand: Harpal Adair MD #### AGNES OLIVO, AZN #### [address] [id number] Wharf Hand: Patricio Zuñiga MD #### ANGEL, MG, CDP #### [address] [place] [phone] Wharf Hand: Hilton Armenta MD Abs.Neutrophil (Seg) 6.33 k/uL Normal 1.50-8.10 [facility] Comment on above: Performed By: #### ALFONSO COSTA, FERI, GLYHGB, VD25 #### [address] [address] Wharf Hand: Harpal Adair MD #### AGNES OLIVO, AZN #### [facility] [address] [place], [place] [phone] Wharf Hand: Patricio Zuñiga MD #### ANGEL, MG, CDP #### [address] [place] [address] Wharf Hand: Hilton Armenta MD Basophils/100 WBC (Bld) 1 % Normal 0-2 [facility] Comment on above: Performed By: #### P THNCA, FEBC, FERI, GLYHGB, VD25 #### [facility] [place] [address] Wharf Hand: Harpal Adair MD #### ARIAN OLIVOTB1, AZN #### [facility] [address] [place] [address] Wharf Hand: Patricio Zuñiga MD #### CP, MG, CDP #### [facility] [address] [place] [address] Wharf Hand: Hilton Armenta MD Eosinophils (Bld) [#/Vol] 0.43 10*3/uL Normal 0.00-0.44 [facility] Comment on above: Performed By: #### P THNCA, FEBC, FERI, GLYHGB, VD25 #### [facility] [address] [place] [address] Wharf Hand: Harpal Adair MD #### AGNES OLIVO, AZN #### [facility] [address] [place], [place] [phone] Wharf Hand: Patricio Zuñiga MD #### CP, MG, CDP #### [address] [place] [phone] Wharf Hand: Hilton Armenta MD Eosinophils/100 WBC (Bld) 5 % High 1-4 [facility] Comment on above: Performed By: #### P THNCA, FEBC, FERI, GLYHGB, VD25 #### [facility] [address] [place] [address] Wharf Hand: Harpal Adair MD #### ARIAN OLIVOTB1, AZN #### [facility] [address] [place] [address] Wharf Hand: Patricio Zuñiga MD #### CP, MG, CDP #### [address] [place], [place] [id number] Wharf Hand: Hilton Armenta MD Erythrocyte distribution width (RBC) [Ratio] 14.9 % High 11.8-14.4 [facility] Comment on above: Performed By: #### P THNCA, FEBC, FERI, GLYHGB, VD25 #### [address] [id number] Wharf Hand: Harpal Adair MD #### AGNES OLIVO, AZN #### [facility] [address] [place] [address] Wharf Hand: Patricio Zuñiga MD #### ANGEL, MG, CDP #### [address] [place] [phone] Wharf Hand: Hilton Armenta MD Hematocrit (Bld) [Volume fraction] 38.0 % Normal 36.3-47.1 [facility] [facility] Comment on above: Performed By: #### P DENNISA, FEBC, FERI, GLYHGB, VD25 #### [address] [id number] Wharf Hand: Harpal Adair MD #### AGNES OLIVO, AZN #### [facility] [address] [place] [address] Wharf Hand: Patricio Zuñiga MD #### CP, MG, CDP #### [address] [place] [address] Wharf Hand: Hilton Armenta MD Hemoglobin (Bld) [Mass/Vol] 12.2 g/dL Normal 11.9-15.1 [facility] Comment on above: Performed By: #### P THNCA, FEBC, FERI, GLYHGB, VD25 #### [address] [address] Wharf Hand: Harpal Adair MD #### ARIAN OLIVOTB1, AZN #### [facility] [address] [place], [place] [id number] Wharf Hand: Patricio Zuñiga MD #### CP, MG, CDP #### [address] [place], [place] [phone] Wharf Hand: Hilton Armenta MD Immature granulocytes/100 WBC (Bld) 0 % Normal 0 [facility] Comment on above: Performed By: #### P THHAYDEEA, FEBC, FERI, GLYHGB, VD25 #### [address] [address] Wharf Hand: Harpal Adair MD #### TYREE OLIVO1, AZN #### [facility] [address] [place] [address] Wharf Hand: Patricio Zuñiga MD #### ANGEL, MG, CDP #### [address] [place] [phone] Wharf Hand: Hilton Armenta MD Lymphocytes (Bld) [#/Vol] 1.90 10*3/uL Normal 1.10-3.70 [facility] Comment on above: Performed By: #### P THNCA, FEBC, FERI, GLYHGB, VD25 #### [facility] [address] [place] [address] Wharf Hand: Harpal Adair MD #### ARIAN OLIVOTB1, AZN #### [facility] [address] [place] [address] Wharf Hand: Patricio Zuñiga MD #### CP, MG, CDP #### [address] [place] [address] Wharf Hand: Hilton Armenta MD Lymphocytes/100 WBC (Bld) 20 % Low 24-43 [facility] Comment on above: Performed By: #### P THNCA, FEBC, FERI, GLYHGB, VD25 #### [address] [place], [place] [phone] Wharf Hand: Harpal Adair MD #### ARIAN OLIVOTB1, AZN #### [facility] [address] [place], [place] [id number] Wharf Hand: Patricio Zuñiga MD #### CP, MG, CDP #### [facility] [address] [place] [address] Wharf Hand: Hilton Armenta MD MCH (RBC) [Entitic mass] 29.9 pg Normal 25.2-33.5 [facility] Comment on above: Performed By: #### P DENNISA, FEBC, FERI, GLYHGB, VD25 #### [address] [phone] Wharf Hand: Harpal Adair MD #### AGNES OLIVO, AZN #### [facility] [address] [address] Wharf Hand: Patricio Zuñiga MD #### NAGEL, MG, CDP #### [address] [place] [address] Wharf Hand: Hilton Armenta MD MCHC (RBC) [Mass/Vol] 32.1 g/dL Normal 28.4-34.8 [facility] Comment on above: Performed By: #### P THNCA, FEBC, FERI, GLYHGB, VD25 #### [address] [id number] Wharf Hand: Harpal Adair MD #### AGNES OLIVO, AZN #### [facility] [address] [place] [address] Wharf Hand: Patricio Zuñiga MD #### CP, MG, CDP #### [facility] [address] [place] [phone] Wharf Hand: Hilton Armenta MD MCV (RBC) [Entitic vol] 93.1 fL Normal 82.6-102.9 [facility] Comment on above: Performed By: #### P THNCA, FEBC, FERI, GLYHGB, VD25 #### [address] [address] Wharf Hand: Hapral Adair MD #### AGENS OLIVO, AZN #### [facility] [address] [place] [address] Wharf Hand: Patricio Zuñiga MD #### ANGEL, MG, CDP #### [address] [place] [phone] Wharf Hand: Hilton Armenta MD Monocytes (Bld) [#/Vol] 0.70 10*3/uL Normal 0.10-1.20 [facility] Comment on above: Performed By: #### P THNCA, FEBC, FERI, GLYHGB, VD25 #### [address] [address] Wharf Hand: Harpal Adair MD #### AGNES OLIVO, AZN #### [facility] [address] [place] [address] Wharf Hand: Patricio Zuñiga MD #### CP, MG, CDP #### [address] [place] [phone] Wharf Hand: Hilton Armenta MD Monocytes/100 WBC (Bld) 7 % Normal 3-12 [facility] Comment on above: Performed By: #### P THNCA, FEBC, FERI, GLYHGB, VD25 #### [address] [address] Wharf Hand: Harpal Adair MD #### ARIAN OLIVOTB1, AZN #### [facility] [address] [place], [place] [phone] Wharf Hand: Patricio Zuñiga MD #### CP, MG, CDP #### [facility] [address] [place], [place] [phone] Wharf Hand: Hilton Armenta MD Neutrophil (Seg) 67 % High 36-65 [facility] Comment on above: Performed By: #### P THNCA, FEBC, FERI, GLYHGB, VD25 #### [address] [address] Wharf Hand: Harpal Adair MD #### ARIAN OLIVOTB1, AZN #### [facility] [address] [place], [place] [id number] Wharf Hand: Patricio Zuñiga MD #### ANGEL, MG, CDP #### [facility] [address] [place] [address] Wharf Hand: Hilton Armenta MD NRBC Automated 0.0 per 100 WBC Normal 0.0 [facility] Comment on above: Performed By: #### P THNCA, FEBC, FERI, GLYHGB, VD25 #### [address] [address] Wharf Hand: Harpal Adair MD #### ARIAN OLIVOTB1, AZN #### [facility] [address] [place], [place] [id number] Wharf Hand: Patricio Zuñiga MD #### CP, MG, CDP #### [facility] [address] [place] [address] Wharf Hand: Hilton Armenta MD Platelet mean volume (Bld) [Entitic vol] 10.6 fL Normal 8.1-13.5 [facility] Comment on above: Performed By: #### P THNCA, FEBC, FERI, GLYHGB, VD25 #### [address] [place] [address] Wharf Hand: Harpal Adair MD #### ARIANTAS, AVITB1, AZN #### [facility] [address] [place] [address] Wharf Hand: Patricio Zuñiga MD #### CP, MG, CDP #### [address] [place], [place] 4400283 Wharf Hand: Hilton Armenta MD Platelets (Bld) [#/Vol] 355 10*3/uL Normal 138-453 [facility] Comment on above: Performed By: #### P THNCA, FEBC, FERI, GLYHGB, VD25 #### [address] [address] Wharf Hand: Harpal Adair MD #### ARIAN OLIVOTB1, AZN #### [facility] [address] [place], [place] [phone] Wharf Hand: Patricio Zuñiga MD #### ANGEL, MG, CDP #### [address] [place], [place] 0483983 Wharf Hand: Hilton Armenta MD RBC (Bld) [#/Vol] 4.08 10*6/uL Normal 3.95-5.11 [facility] Comment on above: Performed By: #### P THNCA, FEBC, FERI, GLYHGB, VD25 #### [address] [address] Wharf Hand: Harpal Adair MD #### AVITAS, AVITB1, AZN #### [facility] [address] [place] [address] Wharf Hand: Patricio Zuñiga MD #### CP, MG, CDP #### [facility] [address] [place] [address] [address] [place], [place] [phone] Wharf Hand: Hilton Armenta MD WBC (Bld) [#/Vol] 9.5 10*3/uL Normal 3.5-11.3 [facility] Comment on above: Performed By: #### P THNCA, FEBC, FERI, GLYHGB, VD25 #### [address] [address] Wharf Hand: Harpal Adair MD #### ARIAN OLIVOTBCeli, AZN #### [facility] [address] [place] [address] Wharf Hand: Patricio Zuñiga MD #### ANGEL, MG, CDP #### [address] [place] [address] Wharf Hand: Hilton Armenta MD Comp Metabolic Profon 2022 Albumin [Mass/Vol] 4.5 g/dL Normal 3.5-5.2 [facility] Comment on above: Performed By: #### P THHAYDEEA, FEBC, FERI, GLYHGB, VD25 #### [address] [address] Wharf Hand: Harpal Adair MD #### AGNES OLIVO, AZN #### [facility] [address] [place] [address] Wharf Hand: Patricio Zuñiga MD #### CP, MG, CDP #### [address] [place], [place] [phone] Wharf Hand: Hilton Armenta MD Albumin/Glob Ratio 1.6 Normal 1.0-2.5 [facility] Comment on above: Performed By: #### P THNCA, FEBC, FERI, GLYHGB, VD25 #### [facility] [address] [place] [address] Wharf Hand: Harpal Adair MD #### ARIAN OLIVOTB1, AZN #### [facility] [address] [place], [place] [phone] Wharf Hand: Patricio Zuñiga MD #### CP, MG, CDP #### [facility] [address] [place], [place] [phone] Wharf Hand: Hilton Armenta MD Alkaline Phos 85 U/L Normal 35-104 [facility] Comment on above: Performed By: #### P BAILEY, FEBC, FERI, GLYHGB, VD25 #### [address] [place] [address] Wharf Hand: Harpal Adair MD #### ARIAN OLIVOTB1, AZN #### [facility] [address] [place], [place] [phone] Wharf Hand: Patricio Zuñiga MD #### ANGEL, MG, CDP #### [address] [place] [address] Wharf Hand: Hilton Armenta MD ALT [Catalytic activity/Vol] 21 U/L Normal 5-33 [facility] Comment on above: Performed By: #### P THNCA, FEBC, FERI, GLYHGB, VD25 #### [address] [address] Wharf Hand: Harpal Adair MD #### ARIAN OLIVOTB1, AZN #### [facility] [address] [place] [address] Wharf Hand: Patricio Zuñiga MD #### CP, MG, CDP #### [facility] [address] [place] [address] Wharf Hand: Hilton Armenta MD Anion gap [Moles/Vol] 11 mmol/L Normal 9-17 [facility] Comment on above: Performed By: #### P THNCA, FEBC, FERI, GLYHGB, VD25 #### [facility] [address] [place] [address] Wharf Hand: Harpal Adair MD #### AGNES OLIVO, AZN #### [facility] [address] [place], [place] [phone] Wharf Hand: Patricio Zuñiga MD #### MG ANGEL, CDP #### [address] [place], [place] [phone] Wharf Hand: Hilton Armenta MD AST [Catalytic activity/Vol] 22 U/L Normal <32 [facility] Comment on above: Performed By: #### P THNCA, FEBC, FERI, GLYHGB, VD25 #### [address] [address] Wharf Hand: Harpal Adair MD #### AGNES OLIVO, AZN #### [facility] [address] [place], [place] [id number] Wharf Hand: Patricio Zuñiga MD #### MG ANGEL, CDP #### [address] [place], [place] [phone] Wharf Hand: Hilton Armenta MD Bilirubin [Mass/Vol] 0.2 mg/dL Low 0.3-1.2 [facility] Comment on above: Performed By: #### P THNCA, FEBC, FERI, GLYHGB, VD25 #### [facility] [address] [place] [address] Wharf Hand: Harpal Adair MD #### AGNES OLIVO, AZN #### [facility] [address] [place] [address] Wharf Hand: Patricio Zuñiga MD #### ANGEL MG, CDP #### [address] [place], [place] 9311083 Wharf Hand: Hilton Armenta MD BUN/CRE Ratio 20 Normal 9-20 [facility] Comment on above: Performed By: #### P THNCA, FEBC, FERI, GLYHGB, VD25 #### [address] [address] Wharf Hand: Harpal Adair MD #### AGNES OLIVO, AZN #### [facility] [address] [place], [place] [phone] Wharf Hand: Patricio Zuñiga MD #### MG ANGEL, CDP #### [address] [place], [place] 9491583 Wharf Hand: Hilton Armenta MD Calcium [Mass/Vol] 9.9 mg/dL Normal 8.6-10.4 [facility] Comment on above: Performed By: #### Kina AVALOS, FECHRIS, FERI, GLYHGB, VD25 #### [address] [address] Wharf Hand: Harpal Adair MD #### AGNES OLIVO, AZN #### [facility] [address] [place], [place] [id number] Wharf Hand: Patricio Zuñiga MD #### MG ANGEL, CDP #### [facility] [address] [place], [place] 9469583 Wharf Hand: Hilton Armenta MD Chloride [Moles/Vol] 107 mmol/L Normal 98-107 [facility] Comment on above: Performed By: #### P THNCA, FEBC, FERI, GLYHGB, VD25 #### [address] [address] Wharf Hand: Harpal Adair MD #### AGNES OLIVO, AZN #### [facility] [address] [place], [place] [phone] Wharf Hand: Patricio Zuñiga MD #### ANGEL MG, CDP #### [address] [place] [address] Wharf Hand: Hilton Armenta MD CO2 [Moles/Vol] 23 mmol/L Normal 20-31 [facility] Comment on above: Performed By: #### P ALFONSO AVALOS, FERI, GLYHGB, VD25 #### [facility] [address] [place] [address] [phone] Wharf Hand: Harpal Adair MD #### AGNES OLIVO, AZN #### [facility] [address] [place], [place] [id number] Wharf Hand: Patricio Zuñiga MD #### MG ANGEL, CDP #### [address] [place] [address] Wharf Hand: Hilton Armenta MD Creatinine [Mass/Vol] 0.6 mg/dL Normal 0.5-0.9 [facility] Comment on above: Performed By: #### ALFONSO COSTA, ARNOLDO, GLYHGB, VD25 #### [address] [address] Wharf Hand: Harpal Adair MD #### AGNES OLIVO, AZN #### [facility] [address] [place], [place] [id number] Wharf Hand: Patricio Zuñiga MD #### ANGEL MG, CDP #### [address] [place] [address] Wharf Hand: Hilton Armenta MD GFR/1.73 sq M.predicted among non-blacks MDRD (S/P/Bld) [Vol rate/Area] mL/min/{1.73_m2} Normal >60 [facility] Comment on above: Result Comment: [...] P THNCA, FEBC, FERI, GLYHGB, VD25 #### [address] [address] Wharf Hand: Harpal Adair MD #### AGNES OLIVO, AZN #### [facility] [address] [id number] Wharf Hand: Patricio Zuñiga MD #### ANGEL, MG, CDP #### [address] [place] [address] Wharf Hand: Hilton Armenta MD Glucose [Mass/Vol] 89 mg/dL Normal 70-99 [facility] Comment on above: Performed By: #### P DENNISA, JOSÉ LUISBC, FERI, GLYHGB, VD25 #### [address] [address] Wharf Hand: Harpal Adair MD #### AGNES OLIVO, AZN #### [facility] [address] [place] [address] Wharf Hand: Patricio Zuñiga MD #### CP, MG, CDP #### [address] [place] [address] Wharf Hand: Hilton Armenta MD Potassium [Moles/Vol] 4.3 mmol/L Normal 3.7-5.3 [facility] Comment on above: Performed By: #### P THNCA, FEBC, FERI, GLYHGB, VD25 #### [address] [address] Wharf Hand: Harpal Adair MD #### PALLAVI, ARIANTB1, AZN #### [facility] [address] [place], [place] [id number] Wharf Hand: Patricio Zuñiga MD #### CP, MG, CDP #### [facility] [address] [place] [address] [place] [address] Wharf Hand: Hilton Armenta MD Protein [Mass/Vol] 7.4 g/dL Normal 6.4-8.3 [facility] Comment on above: Performed By: #### P DENNISA, FEBC, FERI, GLYHGB, VD25 #### [address] [phone] Wharf Hand: Harpal Adair MD #### PALLAVI, ARIANTB1, AZN #### [facility] [address] [place], [place] [id number] Wharf Hand: Patricio Zuñiga MD #### ANGEL, MG, CDP #### [address] [place] [address] Wharf Hand: Hilton Armenta MD Sodium [Moles/Vol] 141 mmol/L Normal 135-144 [facility] Comment on above: Performed By: #### P THNCA, FEBC, FERI, GLYHGB, VD25 #### [address] [address] Wharf Hand: Harpal Adair MD #### FARHADSARIANTB1, AZN #### [facility] [address] [place], [place] 6[address] Wharf Hand: Patricio Zuñiga MD #### CP, MG, CDP #### [address] [place] [address] Wharf Hand: Hilton Armenta MD Urea nitrogen [Mass/Vol] 12 mg/dL Normal 6-20 [facility] Comment on above: Performed By: #### P THNCA, FEBC, FERI, GLYHGB, VD25 #### [facility] [address] [place] [address] Wharf Hand: Harpal Adair MD #### FARHADS, ARIANTB1, AZN #### [facility] [address] [place], [place] [id number] Wharf Hand: Patricio Zuñiga MD #### CP, MG, CDP #### [facility] [address] [place], [place] 4816983 Wharf Hand: Hilton Armenta MD Ferritinon 08-12-2023 Ferritin [Mass/Vol] 12 ng/mL Low 13-150 [facility] Comment on above: Performed By: #### P THNCA, FEBC, FERI, GLYHGB, VD25 #### [address] [address] Wharf Hand: Harpal Adair MD #### ARIAN OLIVOTB1, AZN #### [facility] [address] [place] [address] Wharf Hand: Patricio Zuñiga MD #### CP, MG, CDP #### [address] [place] [address] Wharf Hand: Hilton Armenta MD Hemoglobin A1Con 08-12-2023 Glucose [Mass/Vol] 114 mg/dL Normal [facility] Comment on above: Result Comment: The ADA and AACC recommend providing the estimated average glucose result to permit better patient understanding of their HBA1c result. Performed By: #### P THNCA, FEBC, FERI, GLYHGB, VD25 #### [facility] [address] [place] [address] Wharf Hand: Harpal Adair MD #### ARIAN OLIVOTB1, AZN #### [facility] [address] [place], [place] [id number] Wharf Hand: Patricio Zuñiga MD #### CP, MG, CDP #### [facility] [address] [place] [address] [place] [address] Wharf Hand: Hilton Armenta MD HbA1c (Bld) [Mass fraction] 5.6 % Normal 4.0-6.0 [facility] Comment on above: Performed By: #### P THNCA, FEBC, FERI, GLYHGB, VD25 #### [facility] [address] [place] [address] Wharf Hand: Harpal Adair MD #### AGNES OLIVO, AZN #### [facility] [address] [place] [address] Wharf Hand: Patricio Zuñiga MD #### ANGEL, MG, CDP #### [facility] [address] [place] [address] [place] [address] Wharf Hand: Hilton Armenta MD Iron Binding Cap.on 08-12-20 23 % Fe Saturation 16 % Low 20-55 [facility] Comment on above: Performed By: #### P THNCA, FEBC, FERI, GLYHGB, VD25 #### [facility] [address] [place] [address] Wharf Hand: Harpal Adair MD #### AGNES OLIVO, AZN #### [facility] [address] [place] [address] Wharf Hand: Patricio Zuñiga MD #### ANGEL, MG, CDP #### [facility] [address] [place] [address] [place] [address] Wharf Hand: Hilton Armenta MD Iron [Mass/Vol] 57 ug/dL Normal 37-145 [facility] Comment on above: Performed By: #### P THNCA, FEBC, FERI, GLYHGB, VD25 #### [facility] [address] [place] [address] Wharf Hand: Harpal Adair MD #### ARIAN OLIVOTB1, AZN #### [facility] [address] [place] [address] Wharf Hand: Patricio Zuñiga MD #### CP, MG, CDP #### [facility] [address] [place], [place] [phone] Wharf Hand: Hilton Armenta MD Total Fe Binding Cap 354 ug/dL Normal 250-450 [facility] Comment on above: Performed By: #### P THNCA, FEBC, FERI, GLYHGB, VD25 #### [address] [place] [address] Wharf Hand: Harpal Adair MD #### ARIAN OLIVOTB1, AZN #### [facility] [address] [place], [place] [id number] Wharf Hand: Patricio Zuñiga MD #### CP, MG, CDP #### [facility] [address] [place] [address] Wharf Hand: Hilton Armenta MD Unbound Fe Bind Cap 297 ug/dL Normal 112-347 [facility] Comment on above: Performed By: #### P THNCA, FEBC, FERI, GLYHGB, VD25 #### [address] [address] Wharf Hand: Harpal Adair MD #### ARIAN OILVOTB1, AZN #### [facility] [address] [place], [place] [id number] Wharf Hand: Patricio Zuñiga MD #### CP, MG, CDP #### [facility] [address] [place], [place] [phone] Wharf Hand: Hilton Armenta MD Lipid Profileon 08-12-2023 Cholesterol [Mass/Vol] 153 mg/dL Normal <200 [facility] Comment on above: Result Comment: Cholesterol Guidelines: <200 Desirable 200-240 Borderline >240 Undesirable Performed By: #### L IPR #### [facility] [address] [place] [address] Wharf Hand: Harpal Adair MD Cholesterol in HDL [Mass/Vol] 68 mg/dL Normal >40 [facility] Comment on above: Result Comment: HDL Guidelines: <40 Undesirable 40-59 Borderline >59 Desirable Performed By: #### L IPR #### [facility] [address] [place] [address] Wharf Hand: Harpal Adair MD Cholesterol in LDL [Mass/Vol] 77 mg/dL Normal 0-130 [facility] Comment on above: Result Comment: LDL Guidelines: <100 Desirable 100-129 Near to/above Desirable 130-159 Borderline >159 Undesirable Direct (measured) LDL and calculated LDL are not interchangeable tests. Performed By: #### L IPR #### [facility] [address] [place] [address] Wharf Hand: Harpal Adair MD Cholesterol.total/Cho lesterol in HDL [Mass ratio] 2.3 {ratio} Normal <5 [facility] Comment on above: Performed By: #### L IPR #### [facility] [address] [place] [address] Wharf Hand: Harpal Adair MD Triglyceride [Mass/Vol] 39 mg/dL Normal <150 [facility] Comment on above: Result Comment: Triglyceride Guidelines: <150 Desirable 150-199 Borderline 200-499 High >499 Very high Based on AHA Guidelines for fasting triglyceride, June 2012. Performed By: #### L IPR #### [facility] [address] [place] [address] Wharf Hand: Harpal Adair MD Magnesiumon 08-12-2023 Magnesium [Mass/Vol] 2.1 mg/dL Normal 1.6-2.6 [facility] Comment on above: Performed By: #### P THNCA, FEBC, FERI, GLYHGB, VD25 #### [address] [address] Wharf Hand: Harpal Adair MD #### AGNES OLIVO, AZN #### [facility] [address] [place], [place] [id number] Wharf Hand: Patricio Zuñiga MD #### CP, MG, CDP #### [address] [place] [address] Wharf Hand: Hilton Armenta MD PTH, Intacton 08-12-2023 PTH, Intact 17.1 pg/mL Normal 14.0-72.0 [facility] Comment on above: Result Comment: SAMP LES FROM PATIENTS ROUTINELY RECEIVING HIGH DOSE BIOTIN THERAPY MAY SHOW FALSELY DEPRESSED RESULTS. ADDITIONAL INFORMATION MAY BE REQUIRED FOR DIAGNOSIS. Performed By: #### P ALFONSO AVALOS, ARNOLDO, ARNOLDO, VD25 #### [address] [address] Wharf Hand: Harpal Adair MD #### AGNES OLIVO, AZN #### [facility] [address] [place] [address] Wharf Hand: Patricio Zuñiga MD #### CP, MG, CDP #### [address] [place] [address] Wharf Hand: Hilton Armenta MD Thyroid Stim. Horm.on 2022 Thyroid Stim. Horm. 1.50 uIU/mL Normal 0.30-5.00 [facility] Comment on above: Performed By: #### P DENNISA, ALFONSO, ASHLYI, GLYHGB, VD25 #### [address] [address] Wharf Hand: Harpal Adair MD #### AGNES OLIVO, AZN #### [facility] [address] [place] [address] Wharf Hand: Patricio Zuñiga MD #### CP, MG, CDP #### [facility] [address] [place] [address] Wharf Hand: Hilton Armenta MD Thyroxine, Freeon 08-12-2023 Thyroxine, Free 1.2 ng/dL Normal 0.9-1.7 [facility] Comment on above: Performed By: #### P THNCA, FEBC, FERI, GLYHGB, VD25 #### [facility] [address] [place], [place] [phone] Wharf Hand: Harpal Adair MD #### ARIAN OLIVOTB1, AZN #### [facility] [address] [place] [address] Wharf Hand: Patricio Zuñiga MD #### ANGEL, MG, CDP #### [facility] [address] [place] [address] Wharf Hand: Hilton Armenta MD US GALLBLADDER RUQon 023 US GALLBLADDER RUQ EXAMINATION: RIGHT UPPER QUADRANT ULTRASOUND 08/12/2023 7:25 am COMPARISON: None. HISTORY: ORDERING SYSTEM PROVIDED HISTORY: LUQ pain TECHNOLOGIST PROVIDED HISTORY: This procedure can be scheduled via [employer]. Access your [employer] account by visiting [employer]. FINDINGS: LIVER: The liver demonstrates normal echogenicity [...] Bret Monson DO 08/12/23 Final result Normal [facility] Vitamin D 25 OHon 08-12-2023 Vitamin D 25 OH 45.1 ng/mL Normal >29.9 [facility] Comment on above: Result Comment: Reference Range: Vitamin D status Range Deficiency <20 ng/mL Mild Deficiency 20-30 ng/mL Sufficiency 30-100 ng/mL Toxicity >100 ng/mL Performed By: #### P THNCA, FEBC, FERI, GLYHGB, VD25 #### [address] [address] Wharf Hand: Harpal Adair MD #### AGNES OLIVO, SENAN #### [facility] [address] [address] Wharf Hand: Patricio Zuñiga MD #### ANGEL, MG, CDP #### [facility] [address] [place], [place] [id number] Wharf Hand: Hilton Armenta MD Patient Correspondenceon Patient Correspondence [id number] F Normal [facility] CBC with Diffon 07-30-2023 Abs. Basophil 0.08 k/uL Normal 0.00-0.20 [facility] Comment on above: Performed By: #### T VALERIO REED LIP, CP #### [facility] [employer] [address] [place] [address] Wharf Hand: Harpal Adair MD Abs.Imm.Granulocyte 0.04 k/uL Normal 0.00-0.30 [facility] Comment on above: Performed By: #### T VALERIO REED, LIP, CP #### [address] [address] Wharf Hand: Harpal Adair MD Abs.Neutrophil (Seg) 6.94 k/uL Normal 1.50-8.10 [facility] Comment on above: Performed By: #### T SH, CDP, LIP, CP #### [facility] [employer] [address] [place] [address] Wharf Hand: Harpal Adair MD Basophils/100 WBC (Bld) 1 % Normal 0-2 [facility] Comment on above: Performed By: #### T SH, CDP, LIP, CP #### [facility] [employer] [address] [place] [address] Wharf Hand: Harpal Adair MD Eosinophils (Bld) [#/Vol] 0.23 10*3/uL Normal 0.00-0.44 [facility] Comment on above: Performed By: #### T SH, CDP, LIP, CP #### [facility] [employer] [address] [place] [address] Wharf Hand: Harpal Adair MD Eosinophils/100 WBC (Bld) 2 % Normal 1-4 [facility] Comment on above: Performed By: #### T SH, CDP, LIP, CP #### [facility] [employer] [address] [place] [address] Wharf Hand: Harpal Adair MD Erythrocyte distribution width (RBC) [Ratio] 15.3 % High 11.8-14.4 [facility] Comment on above: Performed By: #### T SH, CDP, LIP, CP #### [facility] [employer] [address] [place] [address] Wharf Hand: Harpal Adair MD Hematocrit (Bld) [Volume fraction] 38.8 % Normal 36.3-47.1 [facility] Comment on above: Performed By: #### T SH, CDP, LIP, CP #### [facility] [employer] [address] [place] [address] Wharf Hand: Harpal Adair MD Hemoglobin (Bld) [Mass/Vol] 12.5 g/dL Normal 11.9-15.1 [facility] Comment on above: Performed By: #### T SH, CDP, LIP, CP #### [address] [address] Wharf Hand: Harpal Adair MD Immature granulocytes/100 WBC (Bld) 0 % Normal 0 [facility] Comment on above: Performed By: #### T SH, CDP, LIP, CP #### [place] [address] Wharf Hand: Harpal Adair MD Lymphocytes (Bld) [#/Vol] 2.19 10*3/uL Normal 1.10-3.70 [facility] Comment on above: Performed By: #### T SH, CDP, LIP, CP #### [place] [address] Wharf Hand: Harpal Adair MD Lymphocytes/100 WBC (Bld) 21 % Low 24-43 [facility] Comment on above: Performed By: #### T SH, CDP, LIP, CP #### [place] [address] Wharf Hand: Harpal Adair MD MCH (RBC) [Entitic mass] 30.6 pg Normal 25.2-33.5 [facility] Comment on above: Performed By: #### T SH, CDP, LIP, CP #### [place] [address] Wharf Hand: Harpal Adair MD MCHC (RBC) [Mass/Vol] 32.2 g/dL Normal 28.4-34.8 [facility] Comment on above: Performed By: #### T SH, CDP, LIP, CP #### [place] [address] Wharf Hand: Harpal Adair MD MCV (RBC) [Entitic vol] 94.9 fL Normal 82.6-102.9 [facility] Comment on above: Performed By: #### T SH, CDP, LIP, CP #### [address] [address] Wharf Hand: Harpal Adair MD Monocytes (Bld) [#/Vol] 0.74 10*3/uL Normal 0.10-1.20 [facility] Comment on above: Performed By: #### T SH, CDP, LIP, CP #### [address] [address] Wharf Hand: Harpal Adair MD Monocytes/100 WBC (Bld) 7 % Normal 3-12 [facility] Comment on above: Performed By: #### T SH, CDP, LIP, CP #### [address] [address] Wharf Hand: Harpal Adair MD Neutrophil (Seg) 69 % High 36-65 [facility] Comment on above: Performed By: #### T SH, CDP, LIP, CP #### [address] [address] Wharf Hand: Harpal Adair MD NRBC Automated 0.0 per 100 WBC Normal 0.0 [facility] Comment on above: Performed By: #### T SH, CDP, LIP, CP #### [address] [address] Wharf Hand: Harpal Adair MD Platelet mean volume (Bld) [Entitic vol] 12.0 fL Normal 8.1-13.5 [facility] Comment on above: Performed By: #### T SH, CDP, LIP, CP #### [facility] [employer] [address] [place] [address] Wharf Hand: Harpal Adair MD Platelets (Bld) [#/Vol] 348 10*3/uL Normal 138-453 [facility] Comment on above: Performed By: #### T SH, CDP, LIP, CP #### [facility] [employer] [address] [place] [address] Wharf Hand: Harpal Adair MD RBC (Bld) [#/Vol] 4.09 10*6/uL Normal 3.95-5.11 [facility] Comment on above: Performed By: #### T SH, CDP, LIP, CP #### [facility] [employer] [address] [place] [address] Wharf Hand: Harpal Adair MD RBC morphology finding Nom (Bld) ANISOCYTOSIS PRESENT Normal [facility] Comment on above: Performed By: #### T SH, CDP, LIP, CP #### [facility] [employer] [address] [place] [address] Wharf Hand: Harpal Adair MD WBC (Bld) [#/Vol] 10.2 10*3/uL Normal 3.5-11.3 [facility] Comment on above: Performed By: #### T SH, CDP, LIP, CP #### [facility] [employer] [address] [place] [address] Wharf Hand: Harpal Adair MD Comp Metabolic Profon 2022 Bilirubin [Mass/Vol] mg/dL Low 0.3-1.2 [facility] Comment on above: Performed By: #### T SH, CDP, LIP, CP #### [facility] [employer] [address] [place] [address] Wharf Hand: Harpal Adair MD Albumin [Mass/Vol] 4.4 g/dL Normal 3.5-5.2 [facility] Comment on above: Performed By: #### T SH, CDP, LIP, CP #### [facility] [employer] [address] [place] [address] Wharf Hand: Harpal Adair MD Albumin/Glob Ratio 1.4 Normal 1.0-2.5 [facility] Comment on above: Performed By: #### T SH, CDP, LIP, CP #### [facility] [employer] [address] [place] [address] Wharf Hand: Harpal Adair MD Alkaline Phos 76 U/L Normal 35-104 [facility] Comment on above: Performed By: #### T SH, CDP, LIP, CP #### [address] [address] Wharf Hand: Harpal Adair MD ALT [Catalytic activity/Vol] 20 U/L Normal 5-33 [facility] Comment on above: Performed By: #### T SH, CDP, LIP, CP #### [address] [address] Wharf Hand: Harpal Adair MD Anion gap [Moles/Vol] 11 mmol/L Normal 9-17 [facility] Comment on above: Performed By: #### T SH, CDP, LIP, CP #### [address] [address] Wharf Hand: Harpal Adair MD AST [Catalytic activity/Vol] 22 U/L Normal <32 [facility] Comment on above: Performed By: #### T SH, CDP, LIP, CP #### [address] [address] Wharf Hand: Harpal Adair MD Calcium [Mass/Vol] 9.6 mg/dL Normal 8.6-10.4 [facility] Comment on above: Performed By: #### T SH, CDP, LIP, CP #### [facility] [employer] [address] [place] [address] Wharf Hand: Harpal Adair MD Chloride [Moles/Vol] 105 mmol/L Normal 98-107 [facility] Comment on above: Performed By: #### T SH, CDP, LIP, CP #### [facility] [employer] [address] [place] [address] Wharf Hand: Harpal Adair MD CO2 [Moles/Vol] 23 mmol/L Normal 20-31 [facility] Comment on above: Performed By: #### T VALERIO REED LIP, CP #### [facility] [employer] [address] [place] [address] Wharf Hand: Harpal Adair MD Creatinine [Mass/Vol] 0.6 mg/dL Normal 0.5-0.9 [facility] Comment on above: Performed By: #### T VALERIO REED, LIP, CP #### [address] [address] Wharf Hand: Harpal Adair MD GFR/1.73 sq M.predicted among non-blacks MDRD (S/P/Bld) [Vol rate/Area] mL/min/{1.73_m2} Normal >60 [facility] Comment on above: Result Comment: These [...] #### T VALERIO REED LIP, CP #### [address] [address] Wharf Hand: Harpal Adair MD Glucose [Mass/Vol] 73 mg/dL Normal 70-99 [facility] Comment on above: Performed By: #### T VALERIO REED, LIP, CP #### [facility] [employer] [address] [place] [address] Wharf Hand: Harpal Adair MD Potassium [Moles/Vol] 4.0 mmol/L Normal 3.7-5.3 [facility] Comment on above: Performed By: #### T VALERIO REED, LIP, CP #### [facility] [address] [place] [address] [place] [address] Wharf Hand: Harpal Adair MD Protein [Mass/Vol] 7.5 g/dL Normal 6.4-8.3 [facility] Comment on above: Performed By: #### T SH, CDP, LIP, CP #### [address] [address] Wharf Hand: Harpal Adair MD Sodium [Moles/Vol] 139 mmol/L Normal 135-144 [facility] Comment on above: Performed By: #### T SH, CDP, LIP, CP #### [address] [address] Wharf Hand: Harpal Adair MD Urea nitrogen [Mass/Vol] 15 mg/dL Normal 6-20 [facility] Comment on above: Performed By: #### T SH, CDP, LIP, CP #### [address] [address] Wharf Hand: Harpal Adair MD Lipaseon 07-30-2023 Lipase [Catalytic activity/Vol] 45 U/L Normal 13-60 [facility] Comment on above: Performed By: #### T SH, CDP, LIP, CP #### [address] [address] Wharf Hand: Harpal Adair MD Thyroid Stim. Horm.on 2022 Thyroid Stim. Horm. 1.18 uIU/mL Normal 0.30-5.00 [facility] Comment on above: Performed By: #### T SH, CDP, LIP, CP #### [address] [address] Wharf Hand: Harpal Adair MD UA w/Reflex Cultureon 2022 Bilirubin, SemiQt,Ur Negative Normal NEG [facility] Comment on above: Performed By: #### U AX #### [address] [address] Wharf Hand: Harpal Adair MD Blood, Urine Negative Normal NEG [facility] Comment on above: Performed By: #### U AX #### [address] [address] Wharf Hand: Harpal Adair MD Clarity (U) Clear Normal CLEAR [facility] Comment on above: Performed By: #### U AX #### [address] [address] Wharf Hand: Harpal Adair MD Color (U) Yellow Normal YEL [facility] Comment on above: Performed By: #### U AX #### [address] [address] Wharf Hand: Harpal Adair MD Comment Microscopic exam not performed based on chemical results unless requested in Normal [facility] Comment on above: Result Comment: orig inal order. Performed By: #### U AX #### [address] [address] Wharf Hand: Harpal Adair MD Glucose Ql (U) Negative Normal NEG [facility] Comment on above: Performed By: #### U AX #### [address] [address] Wharf Hand: Harpal Adair MD Ketones Ql (U) Negative Normal NEG [facility] Comment on above: Performed By: #### U AX #### [address] [address] Wharf Hand: Harpal Adair MD Leukocyte esterase Test strip Ql (U) Negative Normal NEG [facility] Comment on above: Performed By: #### U AX #### [address] [address] Wharf Hand: Harpal Adair MD Nitrite,Ur Negative Normal NEG [facility] Comment on above: Performed By: #### U AX #### [address] [place] [address] Wharf Hand: Harpal Adair MD PH,Ur 5.0 Normal 5.0-8.0 [facility] Comment on above: Performed By: #### U AX #### [address] [address] Wharf Hand: Harpal Adair MD Protein Ql (U) Negative Normal NEG [facility] Comment on above: Performed By: #### U AX #### [address] [address] Wharf Hand: Harpal Adair MD Spec. [place],Ur 1.020 Normal 1.005-1.030 [facility] Comment on above: Performed By: #### U AX #### [address] [address] Wharf Hand: Harpal Adair MD Urobilinogen,Ur Normal Normal 0.0-1.0 [facility] Comment on above: Performed By: #### U AX #### [address] [address] Wharf Hand: Harpal Adair MD ED Note-Physicianon 07-14-20 23 ED Note-Physician Basic Information Time Seen: Shama Macdonald PA-C 06/09/2023 15:45 Chief Complaint Pt presents to ED with complaints of MALDONADO onset today. History of Present Illness This patient presents to the emergency department chief complaint of maryam. She states that she has spent $10,000 in the last 2 weeks. She did see her psychiatrist at [facility] today and they are starting her [...] of care. (more content not included)... Normal [facility] Comment on above: Result Comment: Elec tronically Signed By: Shama Macdonald PA-C\.br\Date and Time Signed: 07/14/23 19:57 EDT\.br\Electronically Co-Signed By: Alexis Shukla DO\.br\Date and Time Co-Signed: 07/20/23 07:11 EST COVID Quick Testingon 2022 Result Negative [facility] Other Consultation Noteon 07-08-20 Consultation Note [id number]#[id number] F Normal [facility] Consent for Treatmenton 06-14 Consent for Treatment [id number]#[id number] F Normal [facility] ED Clinical Summaryon 2022 ED Clinical Summary (Inserted Image. Jordana ble to display) [address] [address] ED Clinical Summary Person Information Name: SHAZIA CHOU [facility] Age: 32 Years : 1990 Sex: Female Language: Cameroonian PCP: Jennie Ames DO Marital Status: Phone: [phone] MRN: Visit Id: Visit Reason: Headache; Neck [...] 07/02/2023 15:29:14 07/02/2023 15:29:14 07/02/2023 15:29:14 ADDRESS: [address] [place] [phone] PHYS DOC NOTES: MEDICAL INFORMATION: Prescriptions Given: [...] EDUCATION INFORMATION: Instructions: Follow up: DIAGNOSIS: Normal [facility] ED Patient Education Noteon 07-02-2023 ED Patient Education Note Normal [facility] ED Patient Summaryon 023 ED Patient Summary (Inserted Image. Jordana ble to display) [place] [id number] Patient Discharge Instructions Person Information Name: SHAZIA CHOU Age: 32 Years Arrival Date: 07/02/2023 14:03:05 Discharge Diagnosis: Primary Care Physician: Jennie Ames DO Provider Information Primary Provider: Bakari Chester DO Advanced Alarm Mechanic:Merari Polanco PA-C The exam and treatment you received in the Emergency Department were for an urgent problem and are not intended as complete care. It is important that you follow up with a doctor, nurse practitioner, or physician?s speech language assistant for ongoing care. If your symptoms [...] opioids can be used to help relieve wntgbptw-pu-hfbkoc pain and are often prescribed following a [...] be struggling with addiction, tell your health dog day care attendant and ask for guidance or call SAMHSA?S National Helpline at 3-794-881-HELP. v Source: [place] Department of Health and Human Services/Center for Disease Control & Prevention [facility] Medications Given: Medication Dose Route No medication (more content not included)... Normal [facility] Consultation Noteon 06-22-20 Consultation Note [id number]#[id number] Normal [facility] Consultation Noteon 06-19-20 Consultation Note [id number]#[id number] F [facility] CNPNon 06-15-2023 CNPN Telephone (NEADFV) -------- SHAZIA CHOU ([id number]) 1990 F Date Time Provider Department 06/15/23 EILEEN MANZANO During your visit today, we recorded the following information about you: Bunny Durbin, RN 06/15/2023 4:57 PM Signed Received clinical notes and test results from [facility] ED visit from 06/10/23. 13 pages. Scanned to chart via [employer] Routed to provider for review Glen Singh [...] is not alleviating the problem. Patient # [phone] Gorge Betancur 07/03/2023 12:15 PM Signed Per instructions from Dr. Manzano. for patient, also sent message via [employer]. She needs to be back on diamox [...] 40 mg by mouth once daily. - tpesqcpqgszz-bzh-xuet-FA -vit K (BARIATRIC MULTIVITAMINS) 45 mg iron- [...] Encounter Status:Closed by GORGE BETANCUR [facility] SHAZIA CHOU ([id number]) 1990 F Date Time Provider Department 06/15/23 EILEEN MANZANO During your visit today, we recorded the following information about you: Sharon Cassidy Fabby 06/15/2023 3:[address] Brain report from [facility]. Scanned to chart for review. Bunny Durbin RN 06/15/2023 4:[address] brain results available in scanned documents for your review. Bunny Durbin RN 06/16/2023 3:04 PM Signed Call to patient without answer. Voice message left asking her to review her [employer] message with a response from . Informed [...] 40 mg by mouth once daily. - sxorvhpgaoao-cae-vgva-FA -vit K (BARIATRIC MULTIVITAMINS) 45 mg iron- [...] Encounter Status:Closed by BUNNY DURBIN on 06/16/23 [facility] 06-11-2023 [facility] Telephone (NECVS8) -------- SHAZIA CHOU ([id number]) 1990 F Date Time Provider Department 06/11/23 EILEEN MANZANO NECVS8 During your visit today, we recorded the following information about you: Daisy Martínez 06/11/2023 2:04 PM Signed CV PHONE Name of caller : Tatianavalentine Jolly Relationship to patient : [facility] If not self Will need patient permission to release results or disclose health information with called documented in . Patient identified by Name and Date of . ( Shazia José Antonio, 1990). 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 The results are available [facility]. Patient is still experiencing vision changes and headaches. [phone] Thank you calling [facility]. You will receive a return [...] Signed Spoke with Karin at radiology at [facility]. She will fax the CT Brain results to our office. Fax number provided. Bunny Durbin RN 06/12/2023 2:53 PM Signed As of this hour, no fax received for CT Brain . Spoke with applications sales representative again in radiology and different [...] was evaluated in the ED today at [facility] for complaints of 'feeling like someone was [...] 40 mg by mouth once daily. - aktndobctkrv-vkz-jplu-FA -vit K (BARIATRIC MULTIVITAMINS) 45 mg iron- [...] Status:Closed by BUNNY DURBIN on 06/15/23 Normal [facility] Discharge Instructionson Discharge Instructions [id number] :127 Normal [facility] Acetamnphn Lvlon 06-09-2023 Acetaminophen [Mass/Vol] ug/mL Low 15-30 [facility] Comment on above: Performed By: #### 2 723245, 0675249, 6551563, 8737172, 8777528, [id number] ####[facility] [address] [place] [address] Auto Diffon 06-09-2023 Basophils/100 WBC (Bld) 0.6 % Normal 0.0-2.0 [facility] Comment on above: Order Comment: Order Added by Discern Expert. Performed By: #### 2 651602, 8347866, 0197159, 1551912, 7612127, 65032118 ####[facility] [address] [place] [address] Basophils/Leukocytes Auto (Bld) [Pure # fraction] 0.0 E9/L Normal 0.0-0.2 [facility] Comment on above: Order Comment: Order Added by Discern Expert. Performed By: #### 2 146933, 3069576, 6483513, 0445847, 7696494, 38797173 ####[facility] [address] [place] [address] Eosinophils/100 WBC (Bld) 1.9 % Normal 0.0-8.0 [facility] Comment on above: Order Comment: Order Added by Ilana Expert. Performed By: #### 2 455527, 0297642, 6626837, 6083798, 0393200, 63810624 ####[facility] [address] [place] [address] Eosinophils/Leukocyte s Auto (Bld) [Pure # fraction] 0.2 E9/L Normal 0.0-0.5 [facility] Comment on above: Order Comment: Order Added by Discern Expert. Performed By: #### 2 574907, 5656273, 0933362, 3231622, 8661103, 19034669 ####[address] [address] Lymphocytes/100 WBC (Bld) 23.4 % Normal 14.0-50.0 [facility] Comment on above: Order Comment: Order Added by Ilana Expert. Performed By: #### 2 624786, 4812931, 3559147, 3993391, 1297764, 97738682 ####[address] [address] Lymphocytes/Leukocyte s Auto (Bld) [Pure # fraction] 2.0 E9/L Normal 1.0-4.0 [facility] Comment on above: Order Comment: Order Added by Ilana Expert. Performed By: #### 2 759709, 1636232, 0296500, 4086383, 0260606, 26081452 ####[address] [address] Monocytes/100 WBC (Bld) 6.9 % Normal 4.0-14.0 [facility] Comment on above: Order Comment: Order Added by Ilana Expert. Performed By: #### 2 867871, 9857086, 0352921, 7195445, 3386524, 05730193 ####[address] [place] [address] Monocytes/Leukocytes Auto (Bld) [Pure # fraction] 0.6 E9/L Normal 0.2-1.0 [facility] Comment on above: Order Comment: Order Added by Discern Expert. Performed By: #### 2 610194, 5639422, 4717169, 5385051, 3320650, 12894864 ####[address] [place] [address] Neutrophils/100 WBC (Bld) 67.2 % Normal 36.0-75.0 [facility] Comment on above: Order Comment: Order Added by Discern Expert. Performed By: #### 2 537551, 0725603, 3888528, 8286407, 4229706, 30272024 ####[address] [place] [address] Neutrophils/Leukocyte s Auto (Bld) [Pure # fraction] 5.6 E9/L Normal 2.0-7.5 [facility] Comment on above: Order Comment: Order Added by Discern Expert. Performed By: #### 2 622254, 1696975, 0450110, 5935105, 0875345, 64003026 ####[address] [address] CBC w/ Auto Diffon 3 Erythrocyte distribution width (RBC) [Ratio] 18.2 % High 10.9-14.2 [facility] Comment on above: Performed By: #### 2 749061, 0290813, 8204813, 6468006, 4580069, 98824894 ####[address] [place] [address] Hematocrit (Bld) [Volume fraction] 34.3 % Normal 34.0-46.0 [facility] Comment on above: Performed By: #### 2 279055, 8443797, 6585023, 5796033, 9062182, 99071616 ####[address] [place] [address] Hemoglobin (Bld) [Mass/Vol] 11.5 g/dL Low 12.0-16.0 [facility] Comment on above: Performed By: #### 2 616406, 0768327, 4648359, 2030055, 7514152, 55152674 ####[facility] [address] [place] [address] MCH (RBC) [Entitic mass] 30.6 pg Normal 27.0-34.0 [facility] Comment on above: Performed By: #### 2 887146, 9503614, 2586551, 7195434, 7188378, 00499177 ####[address] [address] MCHC (RBC) [Mass/Vol] 33.6 g/dL Normal 31.4-36.0 [facility] Comment on above: Performed By: #### 2 967122, 7359651, 8986421, 2972949, 0688358, 61466633 ####[address] [address] MCV (RBC) [Entitic vol] 91.0 fL Normal 80.0-100.0 [facility] Comment on above: Performed By: #### 2 826912, 3395437, 1392371, 2639223, 7477637, 61207652 ####[address] [address] Platelet mean volume (Bld) [Entitic vol] 9.8 fL Normal 6.4-10.8 [facility] Comment on above: Performed By: #### 2 101351, 1297783, 1916983, 5043241, 0767320, 33158985 ####[address] [address] Platelets (Bld) [#/Vol] 283.0 E9/L Normal 150.0-500.0 [facility] Comment on above: Performed By: #### 2 502257, 7723608, 3993113, 7366068, 3253653, 18820539 ####[address] [address] RBC (Bld) [#/Vol] 3.8 E12/L Low 4.3-5.9 [facility] Comment on above: Performed By: #### 2 068964, 3280333, 1896328, 0062211, 7852020, 46000473 ####[facility] [address] [place] [address] WBC corrected for nucl RBC Auto (Bld) [#/Vol] 8.4 E9/L Normal 4.0-11.0 [facility] Comment on above: Performed By: #### 2 916950, 4413550, 9079656, 3804737, 5069171, 92367045 ####[facility] [address] [place] [address] CMPon 06-09-2023 Albumin [Mass/Vol] 4.1 g/dL Normal 3.3-5.0 [facility] Comment on above: Performed By: #### 2 885379, 7782368, 1791717, 5089022, 7192288, 80526295 ####[address] [place] [address] Albumin/Globulin (S) [Mass conc ratio] 1.3 Normal 1.1-2.2 [facility] Comment on above: Performed By: #### 2 462436, 3407227, 1428692, 9154091, 5261781, 39498398 ####[address] [place] [address] ALP [Catalytic activity/Vol] 58 Int._Unit/L Normal 21-98 [facility] Comment on above: Performed By: #### 2 584616, 6868729, 8807890, 1755199, 6379987, [id number] ####[facility] [address] [place] [address] ALT No additional P-5'-P [Catalytic activity/Vol] 18 Int._Unit/L Normal 6-46 [facility] Comment on above: Performed By: #### 2 132989, 2376213, 6775133, 2368685, 0484414, 11518330 ####[address] [place] [address] AST [Catalytic activity/Vol] 20 Int._Unit/L Normal 5-43 [facility] Comment on above: Performed By: #### 2 170948, 7474996, 6657053, 9696105, 3539223, 35864601 ####[facility] [address] [place] [address] Bilirubin [Mass/Vol] 0.1 mg/dL Normal 0.0-1.1 [facility] Comment on above: Performed By: #### 2 935573, 7386482, 7573060, 9623937, 4833322, 22665822 ####[facility] [address] [place] [address] Creatinine [Mass/Vol] 0.6 mg/dL Normal 0.5-1.3 [facility] Comment on above: Performed By: #### 2 421012, 6413617, 6988003, 1296198, 7416608, 68254928 ####[facility] [address] [place] [address] Globulin (S) [Mass/Vol] 3.2 g/dL Normal 1.4-4.0 [facility] Comment on above: Performed By: #### 2 994268, 3752111, 8049932, 7556565, 3929878, 57454138 ####[facility] [address] [place] [address] Protein [Mass/Vol] 7.3 g/dL Normal 6.0-7.8 [facility] Comment on above: Performed By: #### 2 714736, 0435664, 4017100, 1303272, 5985956, 36004862 ####[facility] [address] [place] [address] Urea nitrogen [Mass/Vol] 15 mg/dL Normal 5-21 [facility] Comment on above: Performed By: #### 2 181621, 9173229, 3479700, 0953728, 2791129, 71533231 ####[facility] [address] [place] [address] Urea nitrogen/Creatinine [Mass ratio] 25 No Units High 10-20 [facility] Comment on above: Performed By: #### 2 387461, 5661666, 5024268, 5829100, 5669150, 84979702 ####[facility] [address] [facility] [place] [address] Anion gap [Moles/Vol] 13 mmol/L Normal 6-16 [facility] Comment on above: Performed By: #### 2 556983, 1617295, 5162014, 9619141, 5730597, 90966067 ####[facility] [address] [place] [address] Calcium [Mass/Vol] 9.3 mg/dL Normal 8.9-11.1 [facility] Comment on above: Performed By: #### 2 193573, 9166612, 1317219, 2431954, 9788204, 18718062 ####[facility] [address] [place] [place] [address] Chloride [Moles/Vol] 107 mmol/L Normal 101-111 [facility] Comment on above: Performed By: #### 2 398326, 1591253, 6422252, 6713766, 5047430, 85587635 ####[facility] [address] [place] [address] CO2 [Moles/Vol] 23 mmol/L Normal 21-31 [facility] Comment on above: Performed By: #### 2 947451, 8236099, 0454127, 1331871, 9668042, 33034923 ####[facility] [address] [place] [address] Glucose [Mass/Vol] 91 mg/dL Normal 55-199 [facility] Comment on above: Result Comment: If t his glucose result represents a fasting glucose, interpretation should refer to the following reference range: 55-99 mg/dL Performed By: #### 2 776441, 7769725, 3277746, 3728574, 7476169, 74174834 ####[facility] [address] [place] [address] Potassium [Moles/Vol] 3.6 mmol/L Normal 3.5-5.3 [facility] Comment on above: Performed By: #### 2 730918, 3124643, 7183299, 4354485, 7163777, 73119581 ####[facility] [address] [place] [address] Sodium [Moles/Vol] 139 mmol/L Normal 135-145 [facility] Comment on above: Performed By: #### 2 508878, 9787101, 9475879, 0172506, 7792958, 16718403 ####[facility] [address] [place] [address] Consent for Treatmenton 05-16 Consent for Treatment [id number]: 127 Normal [facility] ED Clinical Summaryon 2022 ED Clinical Summary (Inserted Image. Jordana ble to display) [address] [address] ED Clinical Summary Person Information Name: SHAZIA CHOU [facility] Age: 32 Years : 1990 Sex: Female Language: Cameroonian PCP: Jennie Ames DO Marital Status: Phone: [phone] Visit Id: Visit Reason: Headache; HEADACHE Speciality: [...] 06/09/2023 18:42:22 06/09/2023 18:42:22 06/09/2023 18:42:22 ADDRESS: [address] [place] [id number] PHYS DOC NOTES: MEDICAL INFORMATION: Prescriptions Given: [...] (at bedtime). PATIENT EDUCATION INFORMATION: Instructions: Paresthesia, Jope-pz-Sjcb; Migraine Headache, Eyur-jr-Lxbn Follow up: With: Address: When: [facility] In 3 days 06/12/2023 With: Address: When: Jennie De La Paz, Mic C, [address] [place] [address] Business (1) In 3 days 06/12/2023 DIAGNOSIS: 1:Headache; 2:Paresthesia of arm Normal [facility] ED Patient Education Noteon 06-09-2023 [...] liquor (44 mL). General instructions ? Take igye-zdp-imlwkvu and prescription medicines only as told by [...] provider. Document Revised: 05/12/2022 Document Reviewed: 05/12/2022 [employer] Diabetes Patient Education ? 2022 Vint. Migraine Headache A migraine headache is a [...] ? Tiredness. (more content not included)... Normal [facility] ED Patient Summaryon 023 ED Patient Summary (Inserted Image. Jordana ble to display) [address] [address] Patient Discharge Instructions Person Information Name: SHAZIA CHOU Age: 32 Years Arrival Date: 06/09/2023 15:33:36 Discharge Diagnosis: 1:Headache; 2:Paresthesia of arm Primary Care Physician: Jennie Ames DO Provider Information Primary Provider: Alexis Shukla DO Advanced Alarm Mechanic:None The exam and treatment you received in the Emergency Department were for an urgent problem and are not intended as complete care. It is important that you follow up with a doctor, nurse practitioner, or physician?s speech language assistant for ongoing care. If your symptoms become worse or you do not improve as expected and you are unable to reach your usual health care provider, you should return to the Emergency Department. We are available 24 hours a day. SHAZIA CHOU has been given the following list of patient education materials, prescriptions and follow-up instructions: Follow-up Instructions: With: Address: When: [facility] In 3 days 06/12/2023 With: Address: When: Jennie Ames [address], [address] [place] [address] Business (1) In 3 days 06/12/2023 In the event that this physician does not participate in your insurance network, please consult with your insurance company to find a nearby participating provider. Patient Education Materials: Paresthesia, Ligl-yg-Zryl; Migraine Headache, Batr-eg-Dogv A MESSAGE TO ALL PATIENTS REGARDING OPIOIDS PRESCRIPTION OPIOIDS: WHAT YOU NEED TO KNOW Prescription opioids can be used to help relieve mzhdawfp-ov-dwodls pain and are often prescribed following a [...] addiction, tell (more content not included)... Normal [facility] Ethanolon 06-09-2023 Ethanol [Mass/Vol] mg/dL Normal <=7 [facility] Comment on above: Performed By: #### 2 123087 ####[facility] [address] [place] [address] Salicylateon 06-09-2023 Salicylates [Mass/Vol] mg/dL Low 6-29 [facility] Comment on above: Performed By: #### 2 700933, 8121898, 3311575, 9637338, 1028732, 92182973 ####[facility] [address] [place] [address] U Drug Screenon 06-09-2023 Amphetamines Screen method >1000 ng/mL Ql (U) Negative Normal Negative [facility] Comment on above: Result Comment: Nega tive Cutoff: <1000 ng/mL Performed By: #### 2 531781 ####[facility] [address] [place] [address] Barbiturates Screen Ql (U) Negative Normal Negative [facility] Comment on above: Result Comment: Nega tive Cutoff: <200 ng/mL Performed By: #### 2 420390 ####[address] [place] [address] Benzodiazepines Ql (U) Negative Normal Negative [facility] Comment on above: Result Comment: Nega tive Cutoff: <200 ng/mL Performed By: #### 2 124186 ####[address] [place] [address] Cocaine Ql (U) Negative Normal Negative [facility] Comment on above: Result Comment: Nega tive Cutoff: <300 ng/mL Performed By: #### 2 291557 ####[address] [place] [address] Opiates Screen Ql (U) Negative Normal Negative Fis [facility] Comment on above: Result Comment: Nega tive Cutoff: <300 ng/mL Performed By: #### 2 984135 ####[address] [address] Phencyclidine Screen method >25 ng/mL Ql (U) Negative Normal Negative [facility] Comment on above: Result Comment: Nega tive Cutoff: <25 ng/mL These drug screen results are to be used for medical (i.e., treatment) purposes only. Unconfirmed drug screening results must not be used for non-medical purposes (e.g., employment testing, legal testing). Performed By: #### 2 497769 ####[address] [place] [address] Tetrahydrocannabinol Screen method >50 ng/mL Ql (U) Negative Normal Negative [facility] Comment on above: Result Comment: Nega tive Cutoff: <50 ng/mL Performed By: #### 2 447061 ####[facility] [address] [place] [address] UA With Cult Reflexon 2022 Bilirubin Ql (U) Negative Normal Negative [facility] Comment on above: Performed By: #### 1 3045120 #### [facility] [address] [place] [address] Clarity (U) CLEAR Normal Clear [facility] Comment on above: Performed By: #### 1 9764318 #### [facility] [address] [place] [address] Color (U) YELLOW Normal Yellow [facility] Comment on above: Performed By: #### 1 8750581 #### [facility] [address] [place] [address] Crystals LM Ql (Urine sed) Present Normal [facility] Comment on above: Performed By: #### 1 6127287 #### [facility] [address] [place] [address] Epithelial cells.squamous LM.HPF (Urine sed) [#/Area] 0-2 Normal 0-2 [facility] Comment on above: Performed By: #### 1 4908294 #### [facility] [address] [place] [address] Glucose Test strip (U) [Mass/Vol] Negative Normal Negative [facility] Comment on above: Performed By: #### 1 8899268 #### [facility] [address] [place] [address] Hemoglobin Ql (U) Negative Normal Negative [facility] Comment on above: Performed By: #### 1 2832413 #### [facility] [address] [place] [address] Ketones (U) [Mass/Vol] Negative Normal Negative [facility] Comment on above: Performed By: #### 1 0934253 #### [facility] [address] [place] [address] Franquez.plasma/Lithiu m.RBC (Bld) [Mass ratio] 0-3 Normal 0-3 [facility] Comment on above: Performed By: #### 1 0585312 #### [facility] [address] [place] [address] Nitrite Ql (U) Negative Normal Negative [facility] Comment on above: Performed By: #### 1 7519814 #### [facility] [address] [place] [address] pH (U) 6.0 [pH] Invalid Interpretation Code 5.0-9.0 [facility] Comment on above: Performed By: #### 1 4478259 #### [facility] [address] [place] [address] Protein (U) [Mass/Vol] Negative Normal Negative [facility] Comment on above: Performed By: #### 1 3183190 #### [facility] [address] [place] [address] Specific gravity (U) [Rel density] 1.010 Invalid Interpretation Code 1.005-1.030 [facility] Comment on above: Performed By: #### 1 7348927 #### [facility] [address] [place] [address] Type of Urine collection method Clean Catch Normal [facility] Comment on above: Performed By: #### 1 5467267 #### [facility] [address] [place] [address] Urobilinogen Qn (U) 0.2 {Lucila'U}/dL Normal 0.0-1.0 [facility] Comment on above: Performed By: #### 1 3076688 #### [facility] [address] [place] [address] WBC Auto Ql (U) Negative Normal Negative [facility] Comment on above: Performed By: #### 1 0223339 #### [facility] [address] [place] [address] WBC LM.HPF (Urine sed) [#/Area] 0-5 Normal 0-5 [facility] Comment on above: Performed By: #### 1 3610014 #### [facility] [address] [place] [address] eGFRon 06-09-2023 GFR/1.73 sq M.predicted among non-blacks MDRD (S/P/Bld) [Vol rate/Area] 121 mL/min/1.73 m2 Normal >=[address] [facility] Comment on above: Order Comment: Order added by Discern Expert. Result Comment: Center Machine Set Up Operator gurpreet kidney disease could be indicated at eGFR's of less than 60 mL/min/1.73m2. Kidney failure is indicated at less than 15 mL/min/1.73m2. Performed By: #### 2 884499, 8019843, 1168240, 6239596, 9534426, 64116243 ####[facility] [address] [place] [address] Vit Aon 03-24-2023 Retinol [Mass/Vol] 42.9 microgram/dL Invalid Interpretation Code 18.9-57.3 [facility] Comment on above: Result Comment: Refe rence intervals for vitamin A determined from [facility] internal studies. Individuals with vitamin A less than 20 ug/dL are considered vitamin A deficient and those with serum concentrations less than 10 ug/dL are considered severely deficient. This test was developed and its performance characteristics determined by [employer]. It has not been cleared or approved by the Food and Drug Administration. Performed at: [address] [id number] MD Shorty Rodríguez Performed By: #### 2 468305, 95536176, 4413186, 5696103, 09166578, 80275426, 650444030, 0698168, 1374957, 61015266, 3297694, 9136655, 330996029, 68456101, 6100884, 1884452, 3284597, 2841918 ####[facility] [address] [place] [address] Vit B1on 03-24-2023 Thiamine (Bld) [Moles/Vol] 171.7 nmol/L Invalid Interpretation Code 66.5-200.0 [facility] Comment on above: Result Comment: This test was developed and its performance characteristics determined by [employer]. It has not been cleared or approved by the Food and Drug Administration. Performed at: [address] [id number] MD Shorty Rodríguez Performed By: #### 2 138483, 49761267, 3862099, 9903741, 23915541, 24482223, 540565678, 8144418, 3932344, 61279020, 3550053, 4965134, 734440042, 72292850, 5199184, 7739197, 8533617, 0475575 ####[facility] [address] [place] [address] Zinc Lvlon 03-24-2023 Zinc [Mass/Vol] 85 microgram/dL Invalid Interpretation Code 44-115 [facility] Comment on above: Result Comment: This test was developed and its performance characteristics determined by [employer]. It has not been cleared or approved by the Food and Drug Administration. Detection Limit = 5 Performed at: [address] [id number] MD Shorty Rodríguez Performed By: #### 2 241064, 71677686, 1313699, 1680875, 39166904, 32071447, 706243366, 2246068, 1595803, 36149830, 5437598, 9674999, 884996585, 69412158, 1829011, 2707879, 7701746, 4842733 ####[facility] [address] [place] [address] PTH Intacton 03-20-2023 Parathyrin.intact [Mass/Vol] 17 pg/mL Invalid Interpretation Code 15 [facility] Comment on above: Result Comment: Perf ormed at: [address] [id number] PhD Cordelia Madera Performed By: #### 1 1607668 ####[facility] [address] [place] [address] Auto Diffon 03-19-2023 Basophils/100 WBC (Bld) 1.1 % Normal 0.0-2.0 [facility] Comment on above: Order Comment: Order Added by Discern Expert. Performed By: #### 2 743658, 36283695, 8964209, 1726194, 34288423, 37305195, 456127477, 4954881, 1352042, 83269525, 0208811, 0035362, 585886367, 20020156, 6002071, 2848411, 3595038, 8186235 ####[facility] [address] [place] [address] Basophils/Leukocytes Auto (Bld) [Pure # fraction] 0.1 E9/L Normal 0.0-0.2 [facility] Comment on above: Order Comment: Order Added by Discern Expert. Performed By: #### 2 990037, 80081652, 1934767, 9161072, 29803091, 56038653, 376546054, 4200066, 0894966, 80194127, 3744956, 0541162, 235022154, 88458580, 3783782, 8451468, 9384033, 0647179 ####[address] [place] [address] Eosinophils/100 WBC (Bld) 4.1 % Normal 0.0-8.0 [facility] Comment on above: Order Comment: Order Added by Discern Expert. Performed By: #### 2 218461, 27323756, 0333084, 0329049, 67041382, 78207704, 073393004, 1359389, 3265581, 75416225, 0320271, 9957103, 817830714, 87778999, 9427025, 1651537, 5151621, 4856730 ####[facility] [address] [place] [address] Eosinophils/Leukocyte s Auto (Bld) [Pure # fraction] 0.4 E9/L Normal 0.0-0.5 [facility] Comment on above: Order Comment: Order Added by Discern Expert. Performed By: #### 2 715210, 34019668, 0111113, 0671865, 77123796, 05703251, 046169689, 9858563, 2321339, 56375107, 7606448, 4705070, 286624831, 20970510, 0642878, 3385340, 9119746, 5796244 ####[facility] [address] [place] [address] Lymphocytes/100 WBC (Bld) 20.5 % Normal 14.0-50.0 [facility] Comment on above: Order Comment: Order Added by Discern Expert. Performed By: #### 2 691885, 79091703, 5429731, 8525767, 17778611, 63635651, 647608611, 5704717, 4752734, 28289713, 9327341, 9196151, 299063955, 96565562, 9970325, 8408145, 4344193, 6531690 ####[address] [place] [address] Lymphocytes/Leukocyte s Auto (Bld) [Pure # fraction] 2.1 E9/L Normal 1.0-4.0 [facility] Comment on above: Order Comment: Order Added by Discern Expert. Performed By: #### 2 916980, 67448251, 1538995, 9698283, 40044351, 99762679, 587083697, 1037805, 3646848, 59717313, 2311749, 1963154, 754742839, 35456103, 6730682, 4025605, 6964521, 7133258 ####[address] [place] [address] Monocytes/100 WBC (Bld) 7.6 % Normal 4.0-14.0 [facility] Comment on above: Order Comment: Order Added by Discern Expert. Performed By: #### 2 594219, 47442858, 7087800, 3941135, 73330127, 63356315, 698621532, 6449039, 7610501, 45426259, 4912779, 1790672, 370469410, 77644286, 6526961, 3399422, 9803064, 8873179 ####[address] [place] [address] Monocytes/Leukocytes Auto (Bld) [Pure # fraction] 0.8 E9/L Normal 0.2-1.0 [facility] Comment on above: Order Comment: Order Added by Discern Expert. Performed By: #### 2 188728, 75522359, 7295689, 9429401, 59624773, 59090963, 769106855, 1172132, 7199028, 43133134, 6439908, 7448389, 126247258, 77394662, 9086405, 6646650, 9249009, 4049574 ####[facility] [address] [place] [address] Neutrophils/100 WBC (Bld) 66.7 % Normal 36.0-75.0 [facility] Comment on above: Order Comment: Order Added by Discern Expert. Performed By: #### 2 119698, 81555920, 8193592, 8398195, 58531102, 79391032, 539283231, 6673051, 5557271, 16327421, 0046304, 3572832, 684871994, 11922180, 1415067, 2305152, 3427875, 9805429 ####[facility] [address] [place] [address] Neutrophils/Leukocyte s Auto (Bld) [Pure # fraction] 6.8 E9/L Normal 2.0-7.5 [facility] Comment on above: Order Comment: Order Added by Discern Expert. Performed By: #### 2 862167, 02162505, 6128785, 8067180, 19614600, 14326838, 608466545, 1074734, 0726276, 36066563, 5546241, 3716109, 100048733, 91620584, 7008953, 0057524, 3937936, 6010158 ####[facility] [address] [place] [address] CBC w/ Auto Diffon 3 Erythrocyte distribution width (RBC) [Ratio] 16.0 % High 10.9-14.2 [facility] Comment on above: Performed By: #### 2 298195, 43936980, 8395899, 9422623, 32966404, 07095065, 902631165, 4521309, 9122595, 50780727, 2580866, 5509632, 689535592, 81911728, 6276452, 5183246, 7213591, 2329096 ####[facility] [address] [place] [address] Hematocrit (Bld) [Volume fraction] 37.1 % Normal 34.0-46.0 [facility] Comment on above: Performed By: #### 2 943296, 61180238, 5910872, 3590261, 87868699, 30994704, 549509047, 2841624, 5231339, 57071857, 3013612, 4381138, 592584634, 63410703, 1153091, 6924222, 6204262, 0189079 ####[address] [place] [address] Hemoglobin (Bld) [Mass/Vol] 12.6 g/dL Normal 12.0-16.0 [facility] Comment on above: Performed By: #### 2 384567, 81839700, 6487610, 7486092, 60023436, 85610881, 790901787, 2633259, 8991582, 91473787, 3707105, 6890394, 610321737, 68678757, 6467314, 3790969, 7143426, 2296607 ####[address] [place] [address] MCH (RBC) [Entitic mass] 31.2 pg Normal 27.0-34.0 [facility] Comment on above: Performed By: #### 2 689645, 80468956, 8501318, 5028077, 43743397, 53493792, 049281802, 5790584, 8869931, 99411267, 3476331, 8275068, 624736423, 65814260, 8751420, 4407507, 3632191, 7422672 ####[address] [place] [address] MCHC (RBC) [Mass/Vol] 33.9 g/dL Normal 31.4-36.0 [facility] Comment on above: Performed By: #### 2 781254, 91761326, 5702886, 2579648, 96094267, 34076860, 332803652, 9374645, 6331007, 77435557, 2462303, 5450058, 893695512, 07708163, 9099049, 3988248, 2820608, 2718181 ####[address] [address] MCV (RBC) [Entitic vol] 92.0 fL Normal 80.0-100.0 [facility] Comment on above: Performed By: #### 2 962846, 41792563, 4711177, 7552909, 72249932, 11814394, 968791751, 4296073, 5896021, 77097950, 9615883, 9461492, 211231778, 67873364, 6985902, 6718516, 6306539, 0158829 ####[address] [address] Platelet mean volume (Bld) [Entitic vol] 9.8 fL Normal 6.4-10.8 [facility] Comment on above: Performed By: #### 2 467594, 55421361, 1838698, 9969295, 63746178, 56259178, 514244325, 7132312, 2134501, 66624858, 9703958, 9886504, 383156795, 31094008, 1003888, 6889098, 2323445, 6349183 ####[address] [address] Platelets (Bld) [#/Vol] 369.0 E9/L Normal 150.0-500.0 [facility] Comment on above: Performed By: #### 2 735537, 21668109, 9416259, 4084983, 04164750, 66844728, 228285353, 0524835, 4030298, 13251956, 8395137, 2338841, 156642153, 84264614, 6252462, 1542176, 0131800, 9299609 ####[facility] [address] [place] [address] RBC (Bld) [#/Vol] 4.0 E12/L Low 4.3-5.9 [facility] Comment on above: Performed By: #### 2 110512, 28864513, 1321613, 9415211, 64269615, 44752772, 704578814, 1155181, 9854745, 41102882, 2144422, 8426445, 104645323, 09850410, 8474444, 1399639, 0476322, 1744547 ####[facility] [address] [place] [address] WBC corrected for nucl RBC Auto (Bld) [#/Vol] 10.1 E9/L Normal 4.0-11.0 [facility] Comment on above: Performed By: #### 2 900548, 29186332, 9878745, 9401070, 93191489, 12474992, 581245388, 2378599, 7538292, 20028744, 5709324, 3763347, 869159896, 07545547, 4825894, 9940835, 0412684, 6410521 ####[facility] [address] [place] [address] CHEMISTRYOrdered By: SYSTEM SYSTEM on 03-19-2023 25-hydroxyvitamin [...] (Bld) [Mass fraction] 5.8 % Normal <=5.9% [facility] [place] ChemAutoSS CMPon 03-19-2023 Albumin [Mass/Vol] 4.0 g/dL Normal 3.3-5.0 [facility] Comment on above: Performed By: #### 2 192504, 01518599, 0332813, 7538207, 27752236, 27133749, 003597028, 1343149, 9722079, 73987643, 6068815, 9981374, 363182289, 32826959, 0258655, 2119259, 3269664, 2555586 ####[address] [place] [address] Albumin/Globulin (S) [Mass conc ratio] 1.2 Normal 1.1-2.2 [facility] Comment on above: Performed By: #### 2 910330, 28300999, 8265889, 0692765, 02933647, 54601310, 228761173, 9370768, 1346101, 58677072, 1420384, 5536316, 481580297, 31968325, 6136643, 7429654, 3575087, 1885157 ####[facility] [address] [place] [address] ALP [Catalytic activity/Vol] 61 Int._Unit/L Normal 21-98 [facility] Comment on above: Performed By: #### 2 352067, 25216378, 4454447, 2634505, 58803444, 38645848, 412693323, 3506662, 8843080, 64944439, 0027229, 4159854, 803897791, 84312690, 2611458, 8301554, 4339342, 9105839 ####[facility] [address] [place] [address] ALT No additional P-5'-P [Catalytic activity/Vol] 17 Int._Unit/L Normal 6-46 [facility] Comment on above: Performed By: #### 2 546788, 83356374, 0184498, 4836531, 90003171, 61062794, 216323308, 0430944, 4827824, 16847893, 6037057, 2814892, 792269171, 40354955, 3292040, 3695605, 7779808, 5748634 ####[facility] [address] [place] [address] Anion gap [Moles/Vol] 9 mmol/L Normal 6-16 [facility] Comment on above: Performed By: #### 2 940889, 08913970, 2944998, 5293248, 35623636, 03353761, 172874309, 6660650, 2126955, 99299757, 1526887, 8781664, 217207341, 77342578, 2263016, 9395467, 5203688, 5077782 ####[facility] [address] [place] [address] AST [Catalytic activity/Vol] 20 Int._Unit/L Normal 5-43 [facility] Comment on above: Performed By: #### 2 269128, 00399927, 5619771, 7206385, 00614413, 05675266, 622828796, 7175954, 7318149, 49872695, 0414017, 5802851, 899875370, 32688087, 2903578, 9517111, 4599588, 5350302 ####[facility] [address] [place] [address] Bilirubin [Mass/Vol] 0.4 mg/dL Normal 0.0-1.1 [facility] Comment on above: Performed By: #### 2 721365, 45889079, 0382296, 4736538, 17168044, 09289553, 389236993, 2523524, 0744910, 19171063, 5405865, 1239204, 438989800, 94419553, 5565402, 6405159, 8308010, 4967611 ####[facility] [address] [place] [address] Calcium [Mass/Vol] 9.2 mg/dL Normal 8.9-11.1 [facility] Comment on above: Performed By: #### 2 521182, 85125867, 1587517, 9212954, 10309131, 81165084, 210259969, 5366941, 4560200, 11643373, 3062151, 0147397, 553428196, 24612504, 8190289, 9416966, 8309098, 8877789 ####[facility] [address] [place] [address] Chloride [Moles/Vol] 113 mmol/L High 101-111 [facility] Comment on above: Performed By: #### 2 976989, 32600560, 8254943, 9301626, 30029814, 46339149, 573787687, 5415657, 0633893, 29888727, 9886057, 0656813, 200549725, 54654606, 1957379, 6960229, 3474083, 1242061 ####[facility] [address] [place] [address] CO2 [Moles/Vol] 22 mmol/L Normal 21-31 [facility] Comment on above: Performed By: #### 2 805705, 44445348, 2333035, 5360789, 84841853, 66224519, 102195562, 1884282, 0716594, 28061278, 4407487, 1037734, 063740649, 97855453, 1885259, 4858927, 1863924, 2559871 ####[address] [place] [address] Creatinine [Mass/Vol] 0.7 mg/dL Normal 0.5-1.3 [facility] Comment on above: Performed By: #### 2 402240, 09761457, 9181818, 3843343, 58130129, 73340754, 877395788, 8797788, 1209421, 02131012, 7407926, 2979804, 992955550, 61784660, 1083760, 0382802, 1453131, 3953035 ####[facility] [address] [place] [address] Globulin (S) [Mass/Vol] 3.2 g/dL Normal 1.4-4.0 [facility] Comment on above: Performed By: #### 2 299607, 40705620, 7941637, 3548808, 58495240, 71639365, 698678135, 2341996, 1859468, 11710870, 2765278, 0631342, 353389353, 68335235, 7174036, 4222921, 3441159, 2563961 ####[facility] [address] [place] [address] Glucose [Mass/Vol] 103 mg/dL Normal 55-199 [facility] Comment on above: Result Comment: If t his glucose result represents a fasting glucose, interpretation should refer to the following reference range: 55-99 mg/dL Performed By: #### 2 190215, 75712279, 9252445, 5009560, 15548954, 69738569, 748428874, 9759373, 6798248, 12399163, 0222307, 6144008, 449262275, 53636945, 8169349, 4333351, 7600339, 3008231 ####[facility] [address] [place] [address] Potassium [Moles/Vol] 3.8 mmol/L Normal 3.5-5.3 [facility] Comment on above: Performed By: #### 2 288520, 59287286, 8402652, 5723197, 98890392, 90737752, 614980476, 6157943, 2054426, 69455670, 2264866, 6713538, 801178197, 08242360, 6215084, 1233944, 4766247, 1592009 ####[facility] [address] [place] [address] Protein [Mass/Vol] 7.2 g/dL Normal 6.0-7.8 [facility] Comment on above: Performed By: #### 2 620328, 99142623, 2739502, 4983751, 86953941, 23254130, 545542619, 1722603, 3207868, 98695309, 5188950, 9803095, 051052161, 91878980, 0140247, 8978663, 6656768, 3200279 ####[facility] [address] [place] [address] Sodium [Moles/Vol] 140 mmol/L Normal 135-145 [facility] Comment on above: Performed By: #### 2 848692, 96022054, 2892086, 6603793, 90409229, 62273746, 913610341, 9766358, 4405929, 12978272, 2301229, 5025656, 636480597, 92918076, 3160920, 4353719, 7536071, 3040459 ####[facility] [address] [place] [address] Urea nitrogen [Mass/Vol] 12 mg/dL Normal 5-21 [facility] Comment on above: Performed By: #### 2 000459, 36645721, 9027923, 1848677, 15450890, 51055172, 693490440, 2319469, 4317465, 08474581, 8674489, 7862521, 685923555, 94643356, 2799717, 7492739, 6127432, 6253679 ####[facility] [address] [place] [address] Urea nitrogen/Creatinine [Mass ratio] 17 No Units Normal 10-20 [facility] Comment on above: Performed By: #### 2 947891, 34063411, 1811074, 1436877, 83103123, 51425045, 193427982, 4435212, 6029118, 01810532, 0864184, 9640492, 163379546, 13482524, 4520267, 1392119, 9108473, 5880266 ####[facility] [address] [place] [address] Consent for Treatmenton Consent for Treatment [id number]: 127 Normal [facility] Ferritinon - Ferritin [Mass/Vol] 6 ng/mL Low 11-307 [facility] Comment on above: Result Comment: NORM ALS MEN <30 YRS 16-132 ng/mL MEN >30 YRS 8-338 ng/mL WOMEN (PREMEN) 6-104 ng/mL WOMEN (POSTMEN) 12-210 ng/mL Performed By: #### 2 316341, 96501583, 6142973, 6887984, 46256525, 99545009, 402040452, 5464441, 5272687, 84714521, 8632631, 1227889, 927399365, 63366532, 0376573, 3309183, 0528257, 1495618 ####[facility] [address] [place] [address] Folateon 03-19-2023 Folate [Mass/Vol] 15.6 ng/mL Normal >=6.7 [facility] Comment on above: Performed By: #### 2 452062, 01462341, 5320537, 9092807, 00523797, 75712049, 644837051, 4435222, 3368047, 03435127, 0478429, 0474556, 181406926, 30410080, 7023366, 1904193, 8463937, 7697009 ####[facility] [address] [place] [address] Free T4on 03-19-2023 Free T4 [Mass/Vol] 0.88 ng/dL Normal 0.58-1.64 [facility] Comment on above: Performed By: #### 2 738481, 96105518, 8936082, 3282272, 20030645, 56945277, 786521564, 9125595, 5528662, 36467964, 4184062, 0224955, 653000335, 60348120, 0033278, 7958333, 9394290, 8071416 ####[facility] [address] [place] [address] HEMATOLOGYOrdered By: SYSTEM SYSTEM on 03-19-2023 Basophils/100 [...] 10.1 E9/L Normal 4.0 - 11.0 E9/L [facility] [place] HemeAutoSS TsrF2bfz 03-19-2023 HbA1c (Bld) [Mass fraction] 5.8 % Normal <=5.9 [facility] Comment on above: Performed By: #### 2 778724, 63609830, 4277970, 9194689, 67410705, 48047989, 532565831, 5006390, 8542344, 48426854, 7028434, 4303971, 696061389, 46567139, 5474924, 5032028, 0751237, 2475881 ####[facility] [address] [place] [address] Ironon 03-19-2023 Iron [Mass/Vol] 69 microgram/dL Normal 35-153 [facility] Comment on above: Performed By: #### 2 182716, 46102240, 8057941, 3444880, 19659338, 54055852, 957047043, 4095193, 6528529, 12009305, 4136428, 3620134, 025278273, 97176683, 9937903, 6056550, 7320874, 5078512 ####[facility] [address] [place] [address] Lipid Panelon 03-19-2023 Cholesterol [Mass/Vol] 167 mg/dL Normal 120-200 [facility] Comment on above: Performed By: #### 2 471939, 57593378, 8565511, 5716829, 50874209, 16421569, 024020501, 6064600, 4432454, 84613556, 5782882, 9936087, 020421635, 97920664, 6587088, 9929910, 2820482, 1996525 ####[facility] [address] [place] [address] Cholesterol in HDL [Mass/Vol] 72 mg/dL Invalid Interpretation Code [facility] Comment on above: Result Comment: HDL > or equal to 60 mg/dL: Low cardiovascular risk HDL < 40 mg/dL : High cardiovascular risk Performed By: #### 2 220901, 69830087, 8765782, 4722556, 48968602, 56822855, 050200014, 2981874, 7960306, 10728046, 2109597, 9459234, 819152873, 54449601, 9332107, 9700292, 0933622, 6449005 ####[facility] [address] [place] [address] Cholesterol in LDL [Mass/Vol] 72 mg/dL Normal <=129 [facility] Comment on above: Performed By: #### 2 237616, 98311525, 3104810, 7174226, 25308518, 68001723, 262302547, 6353473, 3777150, 15189423, 5588737, 9117250, 637272436, 00455365, 5574417, 9178849, 3931109, 9988924 ####[facility] [address] [place] [address] Cholesterol in VLDL [Mass/Vol] 14 mg/dL Normal 7-40 [facility] Comment on above: Performed By: #### 2 710746, 00338904, 9900517, 4508911, 96804476, 88906599, 640354629, 8505367, 9993231, 43183732, 3416388, 3184659, 837938617, 84363895, 7326245, 0536124, 3144077, 0242706 ####[facility] [address] [place] [address] Triglyceride [Mass/Vol] 69 mg/dL Normal <=149 [facility] Comment on above: Performed By: #### 2 270013, 89784533, 0403281, 1884177, 30038896, 87101575, 124927352, 1331276, 6892206, 59016651, 5861934, 1892512, 710764334, 88373751, 7394918, 0756870, 5002361, 2752621 ####[facility] [address] [place] [address] Magnesiumon 03-19-2023 Magnesium [Mass/Vol] 2.0 mg/dL Normal 1.3-2.4 [facility] Comment on above: Performed By: #### 2 578054, 96910389, 4506898, 3784556, 80479651, 51743266, 452508124, 3290493, 9324459, 32781206, 4750998, 9584159, 261117933, 17640042, 0512740, 4544264, 3830886, 6970081 ####[facility] [address] [place] [address] Physician Orderon 03-19-2023 Physician Order [id number] :127 Normal [facility] TIBC Calculatedon 03-19-2023 Iron binding capacity [Mass/Vol] 423 microgram/dL High 250-400 [facility] Comment on above: Performed By: #### 2 126036, 40252607, 4909854, 1703259, 95249150, 52991113, 361993230, 7603598, 7846811, 50583670, 4972576, 8524758, 522326842, 70169359, 7873681, 1840225, 9090852, 9561308 ####[facility] [address] [place] [address] Transferrin [Mass/Vol] 302 mg/dL Normal 200-370 [facility] Comment on above: Performed By: #### 2 822390, 86485819, 9579822, 4605299, 74781514, 56947003, 840908892, 3151309, 5667625, 40166622, 3008996, 7794112, 499989458, 79429344, 0418952, 6783437, 2974357, 0431991 ####[facility] [address] [place] [address] TSHon 03-19-2023 TSH Qn 0.61 m[IU]/L Normal 0.34-5.60 [facility] Comment on above: Performed By: #### 2 611717, 28658544, 0368358, 9300056, 15884414, 89376443, 576584243, 4280557, 5235484, 15878127, 2481935, 7183188, 928286280, 64055161, 4770741, 3741682, 0873387, 6255769 ####[facility] [address] [place] [address] Vit B12on 03-19-2023 Cobalamin (Vitamin B12) [Mass/Vol] 357 pg/mL Normal 50-1500 [facility] Comment on above: Performed By: #### 2 764482, 11884883, 0654486, 7101806, 07695274, 03603730, 979909664, 7725297, 7001702, 25907769, 2403337, 4227695, 369918214, 84607490, 4060372, 3484170, 4831911, 5795271 ####[facility] [address] [place] [address] Vitamin D 25 Hydroxyon 03-19 25-hydroxyvitamin D3 [Mass/Vol] 43.1 ng/mL Normal 30.0-100.0 [facility] Comment on above: Result Comment: Vit alberto D deficiency has been defined as a level of serum 25-OH vitamin D less than 20 ng/mL (1,2) by the Fate of Medicine and an Endocrine Society practice guideline. The Endocrine Society further defined vitamin D insufficiency as a level between 21 and 29 ng/mL (2). 1. IOM (Fate of Medicine). 2010. Dietary reference intakes for calcium and D. [place]: The National Academies Press. 2. Willard MF, Luisa NC, Nestor MALDONADO, et al. Evaluation, treatment, and prevention of vitamin D deficiency: an Endocrine Society clinical practice guideline. JCEM. 2010; 96 (7):1911-30. Performed By: #### 2 358234, 77781774, 4605687, 2992460, 24959088, 22386751, 593748509, 0611238, 5291417, 85742727, 8440799, 0104738, 402595125, 50157339, 4810610, 2285455, 2939003, 6450793 ####[facility] [address] [place] [address] eGFRon 03-19-2023 GFR/1.73 sq M.predicted among non-blacks MDRD (S/P/Bld) [Vol rate/Area] 116 mL/min/1.73 m2 Normal >=59 [facility] Comment on above: Order Comment: Order added by Discern Expert. Result Comment: Center Machine Set Up Operator gurpreet kidney disease could be indicated at eGFR's of less than 60 mL/min/1.73m2. Kidney failure is indicated at less than 15 mL/min/1.73m2. Performed By: #### 2 104417, 88915397, 0005732, 4838572, 84622880, 96057640, 294018086, 0032595, 4643976, 98721748, 0206534, 8568369, 019394332, 76220964, 7341676, 3557390, 6978726, 2383529 ####[facility] [address] [place] [address] MRA Head veins WO and W cont rast Ramón 01-29-2023 IMPRESSION: Unremarkable MRV head with and without contrast. Field Collector: PSCB Transcribe Date/Time: Jan 29 2023 2:40P Dictated by : JENNIFER RUVALCABA MD This examination was interpreted and the report reviewed and electronically signed by: JENNIFER RUVALCABA MD on Jan 29 2023 2:44PM [facility] DIVISION OF RADIOLOGY * * *Final Report* * * DATE OF EXAM: Jan 29 2023 1:10PM LN 0336 - MRV BRAIN WO/W IVCON / PROCEDURE REASON: Idiopathic intracranial hypertension * * * * Physician Interpretation * * * * EXAMINATION: MRV BRAIN WO/W IVCON CLINICAL HISTORY: Idiopathic intracranial hypertension. TECHNIQUE: Intracranial 2-D eshz-vv-yickkz and postcontrast MRV with post-processing performed at the modality and 2D multiplanar and 3D maximum intensity projections were created, reviewed and archived. Contrast dose: 17 mL Dotarem administered intravenously. MQ: MRAB_4 COMPARISON: None. RESULT: INTRACRANIAL MRV: There is no evidence of significant narrowing, occlusion, or thrombosis of the dural venous sinuses. Note is made of a partially empty sella. DIVISION OF RADIOLOGY Provider, [facility] - 01/29/2023 * * *Final Report* * * DATE OF EXAM: Jan 29 2023 1:10PM [facility] 0336 - MRV BRAIN WO/W IVCON / PROCEDURE REASON: Idiopathic intracranial hypertension * * * * Physician Interpretation * * * * EXAMINATION: MRV BRAIN WO/W IVCON CLINICAL HISTORY: Idiopathic intracranial hypertension. TECHNIQUE: Intracranial 2-D vovl-pz-jbfynx and postcontrast MRV with post-processing performed at the modality and 2D multiplanar and 3D maximum intensity projections were created, reviewed and archived. Contrast dose: 17 mL Dotarem administered intravenously. MQ: MRAB_4 COMPARISON: None. RESULT: INTRACRANIAL MRV: There is no evidence of significant narrowing, occlusion, or thrombosis of the dural venous sinuses. Note is made of a partially empty sella. IMPRESSION IMPRESSION: Unremarkable MRV head with and without contrast. Field Collector: [facility] Transcribe Date/Time: Jan 29 2023 2:40P Dictated by : JENNIFER RUVALCABA MD This examination was interpreted and the report reviewed and electronically signed by: JENNIFER RUVALCABA MD on Jan 29 2023 2:44PM EST [facility] Radiology Study observation (narrative) [facility] MRA Head veins WO and W cont rast IVOrdered By: Ccf Provider on 01-29-2023 [facility] CHEMISTRYOrdered By: SYSTEM SYSTEM on 01-15-2023 Albumin [...] 0.8 mg/dL Normal 0.5 - 1.3 mg/dL FT Remisol GFR/1.73 sq M.predicted among non-blacks MDRD (S/P/Bld) [Vol rate/Area] 99 mL/min/1.73 m2 Normal >=59mL/min/1 .73 m2 [facility] [place] Chem [...] hCG Ql Negative (01/15/23 11:31 AM) Normal [facility] [place] Man Sero URINALYSISOrdered By: Jacki santana on 01-15-2023 Bacteria [...] PM) Normal Negative [facility] UA Auto SS Franquez.plasma/Lithiu m.RBC (Bld) [Mass ratio] 0-3 /HPF Normal [...] Desc Clean Catch (01/15/23 12:51 PM) Normal [facility] [place] UA Auto SS Urobilinogen Qn (U) 0.4397294 {Lucila'U}/dL Normal 0.0 - 1.0 EU/dL [facility] UA Auto SS WBC Auto Ql (U) 1+ *ABN* (01/15/23 12:51 PM) Invalid Interpretation Code Negative [facility] UA Auto SS WBC LM.HPF (Urine sed) [#/Area] 0-5 /HPF Normal 0-5/HPF [facility] [place] UA Auto SS BLOOD BANKOrdered By: Myrna Contreras on 12-05-2022 ABO/Rh Interp Negative Invalid Interpretation Code [facility] [place] BB Subsection ABSC Gel Interp Negative (12/05/22 7:24 AM) Normal [facility] [place] BB [...] AM) Normal Negative [facility] UA Auto SS Franquez.plasma/Lithiu m.RBC (Bld) [Mass ratio] 0-3 /HPF Normal 0-3/HPF [facility] [place] UA Auto SS Nitrite Ql (U) Negative (12/05/22 10:05 AM) Normal Negative [facility] [place] UA Auto SS pH (U) 6.5 *NA* (12/05/22 10:05 AM) Invalid Interpretation Code 5.0 - 9.0 [facility] [place] UA Auto SS Protein (U) [Mass/Vol] Negative (12/05/22 10:05 AM) Normal Negative [facility] [place] UA Auto SS Specific gravity (U) [Rel density] 1.015 *NA* (12/05/22 10:05 AM) Invalid Interpretation Code 1.005 - 1.030 [facility] [place] UA Auto SS UA Spec Desc Catheter (12/05/22 10:05 AM) Normal [facility] [place] UA Auto SS Urobilinogen Qn (U) 1.6030998 {Lucila'U}/dL Normal 0.0 - 1.0 EU/dL [facility] [place] UA Auto SS WBC Auto Ql (U) Negative (12/05/22 10:05 AM) Normal Negative [facility] [place] UA Auto SS WBC LM.HPF (Urine sed) [#/Area] 0-5 /HPF Normal 0-5/HPF [facility] [place] UA [...] rate/Area] mL/min/1.73 m2 Normal >=59mL/min/1 .73 m2 [facility] [place] Chem S Potassium [Moles/Vol] [...] Office Visit (NEADFV ) -------- SHAZIA CHOU ([id number]) 1990 F Date Time Provider Department 11/20/22 8:00 AM EILEEN MANZANO During your visit today, we recorded the following information about you: Pulse Blood pressure Weight Height 67/minute 137/81 85.7 kg 1.702 m Last Period 10/23/22 Eileen Manzano MD 11/20/2022 10:33 AM Signed [facility] New Patient Evaluation [...] due to congenital deformity, seen in the [facility] for: Idiopathic intracranial [...] her eyes. She has never seen an brass finisher. CSF protein 24, Glu 55, Pro 28, [...] due to congenital deformity, seen in the [facility] for: 1. Idiopathic [...] she agreed. She needs to follow with brass finisher every 6 months. In some patients with intracranial hypertension, there might be a concurrent transverse sinus stenosis and transverse sinus stenting may resolve the symptoms. I will do MRV. --HTN --H depression --Headache: there are a (more content not included)... Normal [facility] CBC AUTO DIFFon 10-30-2022 BASO # 0.0 103/ul Normal 0.0-0.1 [facility] Comment on above: Performed By: #### C JENNIE PATRICK LIPA #### [facility] [address] [address] [address] Manuel Sandhu Basophils/100 WBC (Bld) 0.5 % Normal 0.2-2.0 [facility] [place] Comment on above: Performed By: #### C JENNIE APTRICK LIPA #### [facility] [address] [address] [address] Manuel Sandhu EO # 0.1 103/ul Normal 0.0-0.7 [facility] [place] Comment on above: Performed By: #### C JENNIE PATRICK LIPA #### [facility] [address] [address] [address] Manuel Sandhu Eosinophils/100 WBC (Bld) 1.6 % Normal 0.9-7.0 [facility] Comment on above: Performed By: #### C JENNIE PATRICK LIPA #### [facility] [address] [address] [address] Manuel Sandhu Erythrocyte distribution width (RBC) [Ratio] 13.8 % Normal 11.0-15.0 [facility] [place] Comment on above: Performed By: #### C JENNIE PATRICK LIPA #### [facility] [address] [address] [address] Manuel Sandhu Hematocrit (Bld) [Volume fraction] 38.7 % Normal 36.0-48.0 [facility] [place] Comment on above: Performed By: #### C JENNIE PATRICK LIPA #### [facility] [address] [place] [address] Dr. Manuel Sandhu Hemoglobin (Bld) [Mass/Vol] 12.9 g/dL Normal 12.0-16.0 [facility] [place] Comment on above: Performed By: #### C JENNIE PATRICK LIPA #### [facility] [address] [place] [address] Dr. aMnuel Sandhu IG # 0.03 10e3/ul Normal 0.00-0.03 [facility] [place] Comment on above: Performed By: #### C JENNIE PATRICK LIPA #### [facility] [address] [place] [address] Dr. Manuel Sandhu IG % 0.4 % Normal 0.0-0.5 [facility] [place] Comment on above: Performed By: #### C JENNIE PATRICK LIPA #### [facility] [address] [place] [address] Dr. Manuel Sandhu LYMPH # 2.1 103/ul Normal 1.2-3.8 [facility] [place] Comment on above: Performed By: #### C JENNIE PATRICK LIPA #### [facility] [address] [place] [address] Dr. Manuel Sandhu Lymphocytes/100 WBC (Bld) 25.1 % Normal 20.5-60.0 [facility] [place] Comment on above: Performed By: #### C JENNIE PATRICK LIPA #### [facility] [address] [place] [address] Dr. Manuel Sandhu MANUAL DIFF REQ NO Normal [facility] Comment on above: Performed By: #### C JENNIE PATRICK LIPA #### [facility] [address] [place] [address] Dr. Manuel Sandhu MCH (RBC) [Entitic mass] 32.0 pg Normal 26.7-34.0 [facility] [place] Comment on above: Performed By: #### C JENNIE PATRICK, LIPA #### [facility] [address] [place] [address] Dr. Manuel Sandhu MCHC (RBC) [Mass/Vol] 33.3 g/dL Normal 29.9-35.[address] [facility] Comment on above: Performed By: #### C MP, JENNIE, LIPA #### [facility] [address] [place] [address] Dr. Manuel Sandhu MCV (RBC) [Entitic vol] 96.0 fL Normal 81.0-99.[address] [facility] Comment on above: Performed By: #### C MP, JENNIE, LIPA #### [facility] [address] [place] [address] Dr. Manuel Sandhu MONO # 0.5 103/ul Normal 0.3-0.[address] [facility] Comment on above: Performed By: #### C MP, JENNIE, LIPA #### [facility] [address] [place] [address] Dr. Manuel Sandhu Monocytes/100 WBC (Bld) 5.7 % Normal 1.7-12.[address] [facility] Comment on above: Performed By: #### C MP, JENNIE, LIPA #### [facility] [address] [place] [address] Dr. Manuel Sandhu NEUT # 5.6 103/ul Normal 1.4-6.[address] [facility] Comment on above: Performed By: #### C MP, JENNIE, LIPA #### [facility] [address] [place] [address] Dr. Manuel Sandhu Neutrophils/100 WBC (Bld) 66.7 % Normal 43.0-75.[address] [facility] Comment on above: Performed By: #### C MP, JENNIE, LIPA #### [facility] [address] [place] [address] Dr. Manuel Sandhu Platelet mean volume (Bld) [Entitic vol] 10.9 fL Normal 9.5-13.[address] [facility] Comment on above: Performed By: #### C MP, JENNIE, LIPA #### [facility] [address] [place] [address] Dr. Manuel Sandhu PLT 310 103/ul Normal 150-[address] [facility] Comment on above: Performed By: #### C MP, JENNIE, LIPA #### [facility] [address] [address] [address] Manuel Sandhu RBC 4.03 106/ul Critically low 4.20-5.40 [facility] Comment on above: Performed By: #### C MP, JENNIE, LIPA #### [facility] [address] [address] [address] Manuel Sandhu WBC 8.4 103/ul Normal 4.0-11.0 [facility] [place] Comment on above: Performed By: #### C MP, JENNIE, LIPA #### [facility] [address] [address] [address] Manuel Sandhu ER URINE PROFILEon 3 Bilirubin Ql (U) Negative Normal NEGATIVE [facility] Comment on above: Performed By: #### U MICRO, ERUR #### [facility] [address] [place] [address] Dr. Manuel Sandhu Clarity (U) CLEAR Normal CLEAR [facility] [place] Comment on above: Performed By: #### U MICRO, ERUR #### [facility] [address] [address] [address] Manuel Sandhu Color (U) LT. YELLOW Normal YELLOW [facility] [place] Comment on above: Performed By: #### U MICRO, ERUR #### [facility] [address] [place] [address] Dr. Manuel Sandhu ERUAHD A micrscopic examina tion will be performed if indicated. Normal [facility] Comment on above: Performed By: #### U MICRO, ERUR #### [facility] [address] [address] [address] Manuel Sandhu Glucose Ql (U) Negative Normal NEGATIVE [facility] Comment on above: Performed By: #### U MICRO, ERUR #### [facility] [address] [address] [address] Manuel Sandhu Hemoglobin Ql (U) LARGE Abnormal NEGATIVE [facility] Comment on above: Performed By: #### U MICRO, ERUR #### [facility] [address] [place] [address] Dr. Manuel Sandhu Ketones Ql (U) Negative Normal NEGATIVE [facility] Comment on above: Performed By: #### U MICRO, ERUR #### [facility] [address] [place] [address] Dr. Manuel Sandhu LEUKOCYTES TRACE Abnormal NEGATIVE [facility] [place] Comment on above: Performed By: #### U MICRO, ERUR #### [facility] [address] [place] [address] Dr. Manuel Sandhu Nitrite Ql (U) Negative Normal NEGATIVE [facility] Comment on above: Performed By: #### U MICRO, ERUR #### [facility] [address] [place] [address] Dr. Manuel Sandhu pH (U) 6.5 [pH] Normal 5-9 [facility] [place] Comment on above: Performed By: #### U MICRO, ERUR #### [facility] [address] [place] [address] Dr. Manuel Sandhu SPEC GRAVITY <=1.005 Abnormal 1.005-<=1.02 5 [facility] [place] Comment on above: Performed By: #### U MICRO, ERUR #### [facility] [address] [place] [address] Dr. Manuel Sandhu UA PROTEIN Negative Normal NEGATIVE/ TRACE [facility] Comment on above: Performed By: #### U MICRO, ERUR #### [facility] [address] [place] [address] Dr. Manuel Sandhu UR MICRO IND INDICATED Normal [facility] Comment on above: Performed By: #### U MICRO, ERUR #### [facility] [address] [place] [address] Dr. Manuel Sandhu Urobilinogen Qn (U) 0.2 {Lucila'U}/dL Normal 0.2 - 1. 0 [facility] [place] Comment on above: Performed By: #### U MICRO, ERUR #### [facility] [address] [place] [address] Dr. Manuel Sandhu PROF CHEM 8 (BAS METB)on Anion gap [Moles/Vol] 11.7 mmol/L Normal [facility] Comment on above: Performed By: #### C JENNIE PATRICK LIPA #### [facility] [address] [place] [address] Dr. Manuel Sandhu Calcium [Mass/Vol] 9.1 mg/dL Normal 8.5-10.1 [facility] Comment on above: Performed By: #### C JENNIE PATRICK, LIPA #### [facility] [address] [address] [address] Manuel Sandhu Chloride [Moles/Vol] 105 mmol/L Normal 98-107 [facility] [place] Comment on above: Performed By: #### C JENNIE PATRICK LIPA #### [facility] [address] [place] [address] Dr. Manuel Sandhu CO2 [Moles/Vol] 26.8 mmol/L Normal 21.0-32.0 [facility] Comment on above: Performed By: #### C JENNIE PATRICK LIPA #### [facility] [address] [place] [address] Dr. Manuel Sandhu Creatinine [Mass/Vol] 0.62 mg/dL Normal 0.55-1.02 [facility] [place] Comment on above: Performed By: #### C JENNIE PATRICK LIPA #### [facility] [address] [place] [address] Dr. Manuel Sandhu EGFR-AF IRAQI >60 Normal >=60 [facility] Comment on above: Performed By: #### C JENNIE PATRICK LIPA #### [facility] [address] [place] [address] Dr. Manuel Sandhu EGFR-NON AF IRAQI >60 Normal >=60 [facility] [place] Comment on above: Performed By: #### C JENNIE PATRICK, LIPA #### [facility] [address] [place] [address] Dr. Manuel Sandhu Glucose [Mass/Vol] 92 mg/dL Normal 74-106 [facility] Comment on above: Performed By: #### C JENNIE PATRICK, LIPA #### [facility] [address] [place] [address] Dr. Manuel Sandhu Potassium [Moles/Vol] 3.5 mmol/L Normal 3.5-5.1 [facility] [place] Comment on above: Performed By: #### C JENNIE PATRICK LIPA #### [facility] [address] [address] [address] Manuel Sandhu Sodium [Moles/Vol] 140 mmol/L Normal 136-145 [facility] Comment on above: Performed By: #### C JENNIE PATRICK LIPA #### [facility] [address] [place] [address] Dr. Manuel Sandhu Urea nitrogen [Mass/Vol] 8.0 mg/dL Normal 7.0-18.0 [facility] [place] Comment on above: Performed By: #### C JENNIE PATRICK LIPA #### [facility] [address] [place] [address] Dr. Manuel Sandhu Urea nitrogen/Creatinine [Mass ratio] 12.9 mg/mg Normal [facility] [place] Comment on above: Performed By: #### C JENNIE PATRICK LIPA #### [facility] [address] [place] [address] Dr. Manuel Sandhu URINE MICROSCOPIC ONLYon BACTERIA NONE SEEN Normal NONE SEEN [facility] [place] Comment on above: Performed By: #### U MICRO, ERUR #### [facility] [address] [place] [address] Dr. Manuel Sandhu Bacteria identified Cx Nom (U) NOT INDICATED Normal [facility] [place] Comment on above: Performed By: #### U MICRO, ERUR #### [facility] [address] [place] [address] Dr. Manuel Sandhu CAST NONE SEEN Normal NONE SEEN [facility] [place] Comment on above: Performed By: #### U MICRO, ERUR #### [facility] [address] [place] [address] Dr. Manuel Sandhu Crystals LM Nom (Urine sed) NONE SEEN Normal NONE SEEN [facility] [place] Comment on above: Performed By: #### U MICRO, ERUR #### [facility] [address] [place] [address] Dr. Manuel Sandhu Epithelial cells LM Ql (Urine sed) FEW Abnormal NONE SEEN /RARE [facility] Comment on above: Performed By: #### U MICRO, ERUR #### [facility] [address] [place] [address] Dr. Manuel Sandhu MUCOUS TRACE Abnormal NONE SEEN [facility] Comment on above: Performed By: #### U MICRO, ERUR #### [facility] [address] [place] [address] Dr. Manuel Sandhu RBC 5-10 Abnormal 0-2 [facility] [place] Comment on above: Performed By: #### U MICRO, ERUR #### [facility] [address] [place] [address] Dr. Manuel Sandhu WBC 2-5 Abnormal NONE SEEN [facility] Comment on above: Performed By: #### U MICRO, ERUR #### [facility] [address] [place] [address] Dr. Manuel Sandhu No Panel InformationOrdered By: Dorita Niño on 08-19-2022 CSF Glucose 55 mg/dL 40-70 [facility] CSF Total Protein 24 mg/dL 15-45 [facility] CBC AUTO DIFFon 08-16-2022 BASO # 0.1 103/ul Normal 0.0-0.1 [facility] [place] Comment on above: Performed By: #### U MICRO, ERUR #### [facility] [address] [place] [address] Dr. Manuel Sandhu Basophils/100 WBC (Bld) 0.4 % Normal 0.2-2.0 [facility] [place] Comment on above: Performed By: #### U MICRO, ERUR #### [facility] [address] [place] [address] Dr. Manuel Sandhu EO # 0.2 103/ul Normal 0.0-0.[address] [facility] Comment on above: Performed By: #### U MICRO, ERUR #### [facility] [address] [place] [address] Dr. Manuel Sandhu Eosinophils/100 WBC (Bld) 1.8 % Normal 0.9-7.0 [facility] [place] Comment on above: Performed By: #### U MICRO, ERUR #### [facility] [address] [address] [address] Manuel Sandhu Erythrocyte distribution width (RBC) [Ratio] 13.6 % Normal 11.0-15.0 [facility] [place] Comment on above: Performed By: #### U MICRO, ERUR #### [facility] [address] [place] [address] Dr. Manuel Sandhu Hematocrit (Bld) [Volume fraction] 35.8 % Critically low 36.0-48.0 [facility] [place] Comment on above: Performed By: #### U MICRO, ERUR #### [facility] [address] [place] [address] Dr. Manuel Sandhu Hemoglobin (Bld) [Mass/Vol] 12.2 g/dL Normal 12.0-16.0 [facility] [place] Comment on above: Performed By: #### U MICRO, ERUR #### [facility] [address] [place] [address] Dr. Manuel Sandhu IG # 0.05 10e3/ul Critically high 0.00-0.03 [facility] Comment on above: Performed By: #### U MICRO, ERUR #### [facility] [address] [place] [address] Dr. Manuel Sandhu IG % 0.4 % Normal 0.0-0.5 [facility] [place] Comment on above: Performed By: #### U MICRO, ERUR #### [facility] [address] [place] [address] Dr. Manuel Sandhu LYMPH # 2.0 103/ul Normal 1.2-3.8 [facility] [place] Comment on above: Performed By: #### U MICRO, ERUR #### [facility] [address] [place] [address] Dr. Manuel Sandhu Lymphocytes/100 WBC (Bld) 18.1 % Critically low 20.5-60.0 [facility] [place] Comment on above: Performed By: #### U MICRO, ERUR #### [facility] [address] [place] [address] Dr. Manuel Sandhu MANUAL DIFF REQ NO Normal [facility] Comment on above: Performed By: #### U MICRO, ERUR #### [facility] [address] [place] [address] Dr. Manuel Sandhu MCH (RBC) [Entitic mass] 32.0 pg Normal 26.7-34.0 [facility] [place] Comment on above: Performed By: #### U MICRO, ERUR #### [facility] [address] [place] [address] Dr. Manuel Sandhu MCHC (RBC) [Mass/Vol] 34.1 g/dL Normal 29.9-35.[address] [facility] Comment on above: Performed By: #### U MICRO, ERUR #### [facility] [address] [place] [address] Dr. Manuel Sandhu MCV (RBC) [Entitic vol] 94.0 fL Normal 81.0-99.0 [facility] [place] Comment on above: Performed By: #### U MICRO, ERUR #### [facility] [address] [place] [address] Dr. Manuel Sandhu MONO # 0.7 103/ul Normal 0.3-0.[address] [facility] Comment on above: Performed By: #### U MICRO, ERUR #### [facility] [address] [place] [address] Dr. Manuel Sandhu Monocytes/100 WBC (Bld) 5.8 % Normal 1.7-12.0 [facility] [place] Comment on above: Performed By: #### U MICRO, ERUR #### [facility] [address] [place] [address] Dr. Manuel Sandhu NEUT # 8.2 103/ul Critically high 1.4-6.5 [facility] Comment on above: Performed By: #### U MICRO, ERUR #### [facility] [address] [place] [address] Dr. Manuel Sandhu Neutrophils/100 WBC (Bld) 73.5 % Normal 43.0-75.[address] [facility] Comment on above: Performed By: #### U MICRO, ERUR #### [facility] [address] [place], [place] [id number] Dr. Manuel Sandhu Platelet mean volume (Bld) [Entitic vol] 11.3 fL Normal 9.5-13.[address] [facility] Comment on above: Performed By: #### U MICRO, ERUR #### [facility] [address] [address] [address] Manuel Sandhu PLT 284 103/ul Normal 150-[address] [facility] Comment on above: Performed By: #### U MICRO, ERUR #### [facility] [address] [address] [address] Manuel Sandhu RBC 3.81 106/ul Critically low 4.20-5.40 [facility] Comment on above: Performed By: #### U MICRO, ERUR #### [facility] [address] [place] [address] Dr. Manuel Sandhu WBC 11.2 103/ul Critically high 4.0-11.0 [facility] Comment on above: Performed By: #### U MICRO, ERUR #### [facility] [address] [address] [address] Manuel Sandhu D-DIMERon 08-16-2022 D-DIMER 0.34 mg/L FEU Normal <=0.59 [facility] Comment on above: Performed By: #### U MICRO, ERUR #### [facility] [address] [place] [address] Dr. Manuel Sandhu D-DIMER COMMENTS SEE BELOW Normal [facility] Comment on above: Result Comment: Incr [...] Performed By: #### U MICRO, ERUR #### [facility] [address] [place] [address] Dr. Manuel Sandhu PROF CHEM 8 (BAS METB)on Anion gap [Moles/Vol] 10.6 mmol/L Normal [facility] Comment on above: Performed By: #### I NFLUAB #### [facility] [address] [place] [address] Dr. Manuel Sandhu Calcium [Mass/Vol] 9.2 mg/dL Normal 8.5-10.1 [facility] Comment on above: Performed By: #### I NFLUAB #### [facility] [address] [address] [address] Manuel Sandhu Chloride [Moles/Vol] 103 mmol/L Normal 98-107 [facility] [place] Comment on above: Performed By: #### I NFLUAB #### [facility] [address] [place] [address] Dr. Manuel Sandhu CO2 [Moles/Vol] 28.4 mmol/L Normal 21.0-32.0 [facility] Comment on above: Performed By: #### I NFLUAB #### [facility] [address] [place] [address] Dr. Manuel Sandhu Creatinine [Mass/Vol] 0.61 mg/dL Normal 0.55-1.02 [facility] [place] Comment on above: Performed By: #### I NFLUAB #### [facility] [address] [place] [address] Dr. Manuel Sandhu EGFR-AF IRAQI >60 Normal >=60 [facility] Comment on above: Performed By: #### I NFLUAB #### [facility] [address] [place] [address] Dr. Manuel Sandhu EGFR-NON AF IRAQI >60 Normal >=[address] [facility] Comment on above: Performed By: #### I NFLUAB #### [facility] [address] [place] [address] Dr. Manuel Sandhu Glucose [Mass/Vol] 90 mg/dL Normal 74-106 [facility] Comment on above: Performed By: #### I NFLUAB #### [facility] [address] [place] [address] Dr. Manuel Sandhu Potassium [Moles/Vol] 4.0 mmol/L Normal 3.5-5.1 [facility] [place] Comment on above: Performed By: #### I NFLUAB #### [facility] [address] [address] [address] Manuel Sandhu Sodium [Moles/Vol] 138 mmol/L Normal 136-145 [facility] Comment on above: Performed By: #### I NFLUAB #### [facility] [address] [address] [address] Manuel Sandhu Urea nitrogen [Mass/Vol] 16.0 mg/dL Normal 7.0-18.0 [facility] [place] Comment on above: Performed By: #### I NFLUAB #### [facility] [address] [address] [address] Manuel Sandhu Urea nitrogen/Creatinine [Mass ratio] 26.2 mg/mg Normal [facility] [place] Comment on above: Performed By: #### I NFLUAB #### [facility] [address] [address] [address] Manuel Sandhu XR CHEST 1 Von [...] YOLI FRANKS Date: 2022-08-16 14:[address] [facility] Albumin [Mass/volume] in Ser um or PlasmaOrdered By: Sangeetha Peña on 08-12-2022 Albumin [Mass/Vol] 3.2 g/dL 3.2-5.5 [facility] Basophils Auto (Bld) [#/Vol] Ordered By: Sangeetha Peña on 08-12-2022 Basophils (Bld) [#/Vol] 0.1 10*3/uL 0.0-0.2 [facility] Basophils/100 WBC Auto (Bld) Ordered By: Sangeetha Peña on 08-12-2022 Basophils/100 WBC (Bld) 0.7 % . [facility] C reactive protein [Mass/vol ume] in Serum or PlasmaOrdered By: Sangeetha Peña on 08-12-2022 CRP [Mass/Vol] 0.5 mg/dL 0.0-1.0 [facility] Creatinine and Glomerular fi ltration rate.predicted panel (S/P/Bld)Ordered By: Sangeetha Peña on 08-12-2022 Creatinine [Mass/Vol] 0.65 mg/dL 0.44-1.03 [facility] Eosinophils Auto (Bld) [#/Vo l]Ordered By: Sangeetha Peña on 08-12-2022 Eosinophils (Bld) [#/Vol] 0.4 10*3/uL 0.0-0.45 [facility] Eosinophils/100 WBC Auto (Bl d)Ordered By: Sangeetha Peña on 08-12-2022 Eosinophils/100 WBC (Bld) 5.2 % . [facility] Erythrocyte distribution wid th Auto (RBC) [Ratio]Ordered By: Sangeetha Peña on 08-12-2022 Erythrocyte distribution width (RBC) [Ratio] 14.4 % 11.9-15.3 [facility] Erythrocyte sedimentation ra te by Photometric methodOrdered By: Dorita Niño on 08-12-2022 ESR Photometric method (Bld) [Velocity] 3 mm/hr 0-19 [facility] Estimated glomerular filtrat ion rate (GFR) non- AmericanOrdered By: Sangeetha Peña on 08-12-2022 GFR/1.73 sq M.predicted among non-blacks MDRD (S/P/Bld) [Vol rate/Area] > 60 mL/Min [facility] Folate [Mass/volume] in Seru m or PlasmaOrdered By: Lizzeth Malave on 08-12-2022 Folate [Mass/Vol] 15.3 ng/mL >5.9 [facility] Comment on above: Folate reference ran ge: >5.9 ng/mlThe WHO technical consultation on folate and vitamin [id number] has determined that folate concentrations lessthan 4 ng/ml are considered deficient. Globulin Calc (S) [Mass/Vol] Ordered By: Sangeetha Pñea on 08-12-2022 Globulin (S) [Mass/Vol] 2.4 g/dL [facility] HCG ( test) IA.rapi d Ql (U)Ordered By: Lizzeth Malave on 08-12-2022 HCG ( test) Ql (U) Negative [facility] Hematocrit Auto (Bld) [Volum e fraction]Ordered By: Sangeetha Peña on 08-12-2022 Hematocrit (Bld) [Volume fraction] 34.6 % 34.0-46.4 [facility] Hemoglobin [Mass/volume] in BloodOrdered By: Sangeetha Peña on 08-12-2022 Hemoglobin (Bld) [Mass/Vol] 11.3 g/dL 11.8-15.4 [facility] - Chemistry and C hemistry - challengeOrdered By: Lizzeth Malave on 08-12-2022 Cobalamin (Vitamin B12) [Mass/Vol] 610 pg/mL 180-914 [facility] Magnesium [Mass/Vol] 1.9 mg/dL 1.6-2.6 [facility] - Hematology and Cell countsOrdered By: Sangeetha Peña on 08-12-2022 Nucleated RBC/100 WBC (Bld) [Ratio] 0.1 % 0-0.5 [facility] Leukocytes [#/volume] in Blo od by Automated countOrdered By: Sangeetha Peña on 08-12-2022 WBC (Bld) [#/Vol] 8.3 10*3/uL 4.5-11.0 [facility] Lymphocytes Auto (Bld) [#/Vo l]Ordered By: Sangeetha Peña on 08-12-2022 Lymphocytes (Bld) [#/Vol] 2.3 10*3/uL 1.00-4.8 [facility] Lymphocytes/100 WBC Auto (Bl d)Ordered By: Sangeetha Peña on 08-12-2022 Lymphocytes/100 WBC (Bld) 27.4 % . [facility] MCH Auto (RBC) [Entitic mass ]Ordered By: Sangeetha Peña on 08-12-2022 MCH (RBC) [Entitic mass] 32.0 pg 24.7-34.3 [facility] MCHC Auto (RBC) [Mass/Vol]Or dered By: Sangeetha Peña on 08-12-2022 MCHC (RBC) [Mass/Vol] 32.8 g/dL 32.0-35.0 [facility] MCV Auto (RBC) [Entitic vol] Ordered By: Sangeetha Peña on 08-12-2022 MCV (RBC) [Entitic vol] 97.7 fL 80-100 [facility] Monocytes Auto (Bld) [#/Vol] Ordered By: Sangeetha Peña on 08-12-2022 Monocytes (Bld) [#/Vol] 0.7 10*3/uL 0.0-0.8 [facility] Monocytes/100 WBC Auto (Bld) Ordered By: Sangeetha Peña on 08-12-2022 Monocytes/100 WBC (Bld) 8.7 % . [facility] Neutrophils Auto (Bld) [#/Vo l]Ordered By: Sangeetha Peña on 08-12-2022 Neutrophils (Bld) [#/Vol] 4.8 10*3/uL 1.8-7.7 [facility] Neutrophils/100 WBC Auto (Bl d)Ordered By: Sangeetha Peña on 08-12-2022 Neutrophils/100 WBC (Bld) 58.0 % . [facility] No Panel InformationOrdered By: Sanegetha Peña on 08-12-2022 Estimated GFR () > 60 mL/Min [facility] Comment on above: GFR estimated refere nce range: According to KDOQI guidelines, <60 ml/min/1.73m2 is sufficient to diagnose a patient with chronic kidney disease. Pharmacy Creatinine Clearance (Chem 140.31 [facility] Platelet mean volume Auto (B ld) [Entitic vol]Ordered By: Sangeetha Peña on 08-12-2022 Platelet mean volume (Bld) [Entitic vol] 10.2 fL 6.3-10.7 [facility] Platelets Auto (Bld) [#/Vol] Ordered By: Sangeetha Peña on 08-12-2022 Platelets (Bld) [#/Vol] 263 10*3/uL 150-450 [facility] Protein [Mass/volume] in Ser um or PlasmaOrdered By: Sangeetha Peña on 08-12-2022 Protein [Mass/Vol] 5.6 g/dL 6.1-7.9 [facility] RBC Auto (Bld) [#/Vol]Ordere d By: Sangeetha Peña on 08-12-2022 RBC (Bld) [#/Vol] 3.54 10*6/uL 3.60-5.00 [facility] Serum or plasma alanine alberto otransferase measurement without P-5'-P (enzymatic activiOrdered By: Sangeetha Peña on 08-12-2022 ALT No additional P-5'-P [Catalytic activity/Vol] 22 U/L 1060 [facility] Serum or plasma albumin/glob ulin mass ratioOrdered By: Sangeetha Peña on 08-12-2022 Albumin/Globulin [Mass ratio] 1.3 {ratio} [facility] Serum or plasma alkaline marquez sphatase measurement (enzymatic activity/volume)Ordered By: Sangeetha Peña on 08-12-2022 ALP [Catalytic activity/Vol] 54 U/L 32-92 [facility] Serum or plasma anion gap de terminationOrdered By: Sangeetha Peña on 08-12-2022 Anion gap [Moles/Vol] 10.6 mmol/L 6.0-15.0 [facility] Serum or plasma aspartate am inotransferase measurement (enzymatic activity/volume)Ordered By: Sangeetha Peña on 08-12-2022 AST [Catalytic activity/Vol] 20 U/L 10-42 [facility] Serum or plasma calcium audie urement (mass/volume)Ordered By: Sangeetha Peña on 08-12-2022 Calcium [Mass/Vol] 8.8 mg/dL 8.2-10.2 [facility] Serum or plasma chloride nimisha surement (moles/volume)Ordered By: Sangeetha Peña on 08-12-2022 Chloride [Moles/Vol] 105 mmol/L 95-114 [facility] Serum or plasma glucose audie urement (mass/volume)Ordered By: Sangeetha Peña on 08-12-2022 Glucose [Mass/Vol] 85 mg/dL 70-100 [facility] Comment on above: ADA recommended refe rence rangeRandom Glucose Reference Range is dependent on time and content of last meal. Glucose of more than 200 mg/dL in a nonstressed, ambulatory subject supports the diagnosis of Diabetes Mellitus. Serum or plasma potassium me asurement (moles/volume)Ordered By: Sangeetha Peña on 08-12-2022 Potassium [Moles/Vol] 4.2 mmol/L 3.5-5.1 [facility] Serum or plasma sodium measu rement (moles/volume)Ordered By: Sangeetha Peña on 08-12-2022 Sodium [Moles/Vol] 140 mmol/L 136-146 [facility] Serum or plasma total biliru bin measurement (mass/volume)Ordered By: Sangeetha Peña on 08-12-2022 Bilirubin [Mass/Vol] 0.5 mg/dL 0.3-1.2 [facility] Serum or plasma total carbon dioxide measurement (moles/volume)Ordered By: Sangeetha Peña on 08-12-2022 CO2 [Moles/Vol] 28.6 mmol/L 22.0-30.0 [facility] Serum or plasma urea nitroge n measurement (mass/volume)Ordered By: Sangeetha Peña on 08-12-2022 Urea nitrogen [Mass/Vol] 7 mg/dL 9-23 [facility] TSH DL <= 0.005 mIU/L QnOrde red By: Lizzeth Malave on 08-12-2022 TSH Qn 1.79 m[IU]/L 0.45-5.33 [facility] Troponin I.cardiac [Mass/vol ume] in Serum or Plasma by High sensitivity methodOrdered By: Lizzeth Malave on 08-12-2022 Troponin I.cardiac High sensitivity method [Mass/Vol] < 3 pg/mL 0-15 [facility] CBC AUTO DIFFon 08-11-2022 BASO # 0.1 103/ul Normal 0.0-0.[address] [facility] Comment on above: Performed By: #### C MP, JENNIE, LIPA #### [facility] [address] [place] [address] Dr. Manuel Sandhu Basophils/100 WBC (Bld) 0.5 % Normal 0.2-2.0 [facility] Comment on above: Performed By: #### C MP, JENNIE, LIPA #### [facility] [address] [place] [address] Dr. Manuel Sandhu EO # 0.4 103/ul Normal 0.0-0.7 [facility] Comment on above: Performed By: #### C MP JENNIE, LIPA #### [facility] [address] [place] [address] Dr. Manuel Sandhu Eosinophils/100 WBC (Bld) 2.4 % Normal 0.9-7.0 [facility] Comment on above: Performed By: #### C CELINA JENNIE, LIPA #### [facility] [address] [place] [address] Dr. Manuel Sandhu Erythrocyte distribution width (RBC) [Ratio] 14.1 % Normal 11.0-15.0 [facility] Comment on above: Performed By: #### C JENNIE PATRICK LIPA #### [facility] [address] [place] [address] Dr. Manuel Sandhu Hematocrit (Bld) [Volume fraction] 39.4 % Normal 36.0-48.0 [facility] Comment on above: Performed By: #### C CELINA JENNIE, LIPA #### [facility] [address] [place] [address] Dr. Manuel Sandhu Hemoglobin (Bld) [Mass/Vol] 13.3 g/dL Normal 12.0-16.0 [facility] Comment on above: Performed By: #### C CELINA JENNIE, LIPA #### [facility] [address] [place] [address] Dr. Manuel Sandhu IG # 0.07 10e3/ul Critically high 0.00-0.03 [facility] Comment on above: Performed By: #### C CELINA JENNIE, LIPA #### [facility] [address] [place] [address] Dr. Manuel Sandhu IG % 0.5 % Normal 0.0-0.[address] [facility] Comment on above: Performed By: #### C JENNIE PATRICK LIPA #### [facility] [address] [place] [address] Dr. Manuel Sandhu LYMPH # 3.6 103/ul Normal 1.2-3.[address] [facility] Comment on above: Performed By: #### C JENNIE PATRICK LIPA #### [facility] [address] [place] [address] Dr. Manuel Sandhu Lymphocytes/100 WBC (Bld) 23.5 % Normal 20.5-60.0 [facility] Comment on above: Performed By: #### C JENNIE PATRICK LIPA #### [facility] [address] [place] [address] Dr. Manuel Sandhu MANUAL DIFF REQ NO Normal [facility] Comment on above: Performed By: #### C JENNIE PATRICK LIPA #### [facility] [address] [place] [address] Dr. Manuel Sandhu MCH (RBC) [Entitic mass] 32.1 pg Normal 26.7-34.0 [facility] [place] Comment on above: Performed By: #### C JENNIE PATRICK LIPA #### [facility] [address] [place] [address] Dr. Manuel Sandhu MCHC (RBC) [Mass/Vol] 33.8 g/dL Normal 29.9-35.2 [facility] Comment on above: Performed By: #### C JENNIE PATRICK LIPA #### [facility] [address] [place] [address] Dr. Manuel Sandhu MCV (RBC) [Entitic vol] 95.2 fL Normal 81.0-99.[address] [facility] Comment on above: Performed By: #### C JENNIE PATRICK LIPA #### [facility] [address] [place] [address] Dr. Manuel Sandhu MONO # 0.9 103/ul Critically high 0.3-0.8 [facility] Comment on above: Performed By: #### C JENNIE PATRICK LIPA #### [facility] [address] [address] [address] Manuel Sandhu Monocytes/100 WBC (Bld) 5.8 % Normal 1.7-12.0 [facility] Comment on above: Performed By: #### C MP, JENNIE, LIPA #### [facility] [address] [place] [address] Dr. Manuel Sandhu NEUT # 10.3 103/ul Critically high 1.4-6.5 [facility] Comment on above: Performed By: #### C MP, JENNIE, LIPA #### [facility] [address] [place] [address] Dr. Manuel Sandhu Neutrophils/100 WBC (Bld) 67.3 % Normal 43.0-75.0 [facility] Comment on above: Performed By: #### C CELINA JENNIE, LIPA #### [facility] [address] [place] [address] Dr. Manuel Sandhu Platelet mean volume (Bld) [Entitic vol] 11.4 fL Normal 9.5-13.5 [facility] Comment on above: Performed By: #### C MP JENNIE, LIPA #### [facility] [address] [place] [address] Dr. Manuel Sandhu PLT 364 103/ul Normal 150-[address] [facility] Comment on above: Performed By: #### C MP, JENNIE, LIPA #### [facility] [address] [place] [address] Dr. Manuel Sandhu RBC 4.14 106/ul Critically low 4.20-5.40 [facility] Comment on above: Performed By: #### C MP, JENNIE, LIPA #### [facility] [address] [place] [address] Dr. Manuel Sandhu WBC 15.3 103/ul Critically high 4.0-11.0 [facility] Comment on above: Performed By: #### C MP, JENNIE, LIPA #### [facility] [address] [place] [address] STROKE HEAD WOon [...] YOLI MCKEON Date: 2022-08-11 15:[address] [facility] ER URINE PROFILEon 2 Bilirubin Ql (U) Negative Normal NEGATIVE [facility] Comment on above: Performed By: #### U MICRO, ERUR #### [facility] [address] [place] [address] Dr. Manuel Sandhu Clarity (U) CLEAR Normal CLEAR [facility] Comment on above: Performed By: #### U MICRO, ERUR #### [facility] [address] [address] [address] Manuel Sandhu Color (U) LT. YELLOW Normal YELLOW [facility] Comment on above: Performed By: #### U MICRO, ERUR #### [facility] [address] [place] [address] Dr. Manuel Sandhu ERUGRAHAM A micrscopic examina tion will be performed if indicated. Normal [facility] Comment on above: Performed By: #### U MICRO, ERUR #### [facility] [address] [place] [address] Dr. Manuel Sandhu Glucose Ql (U) Negative Normal NEGATIVE [facility] Comment on above: Performed By: #### U MICRO, ERUR #### [facility] [address] [address] [address] Manuel Sandhu Hemoglobin Ql (U) Negative Normal NEGATIVE [facility] Comment on above: Performed By: #### U MICRO, ERUR #### [facility] [address] [address] [address] Manuel Sandhu Ketones Ql (U) Negative Normal NEGATIVE [facility] Comment on above: Performed By: #### U MICRO, ERUR #### [facility] [address] [address] [address] Manuel Sandhu LEUKOCYTES Negative Normal NEGATIVE [facility] [place] Comment on above: Performed By: #### U MICRO, ERUR #### [facility] [address] [place] [address] Dr. Manuel Sandhu Nitrite Ql (U) Negative Normal NEGATIVE [facility] Comment on above: Performed By: #### U MICRO, ERUR #### [facility] [address] [place] [address] Dr. Manuel Sandhu pH (U) 7.0 [pH] Normal 5-9 [facility] Comment on above: Performed By: #### U MICRO, ERUR #### [facility] [address] [place] [address] Dr. Manuel Sandhu SPEC GRAVITY <=1.005 Abnormal 1.005-<=1.02 5 [facility] Comment on above: Performed By: #### U MICRO, ERUR #### [facility] [address] [address] [address] Manuel Sandhu UA PROTEIN Negative Normal NEGATIVE/ TRACE [facility] Comment on above: Performed By: #### U MICRO, ERUR #### [facility] [address] [address] [address] Manuel Sandhu UR MICRO IND NOT INDICATED Normal [facility] Comment on above: Performed By: #### U MICRO, ERUR #### [facility] [address] [address] [address] Manuel Sandhu Urobilinogen Qn (U) 0.2 {Lucila'U}/dL Normal 0.2 - 1. 0 [facility] Comment on above: Performed By: #### U MICRO, ERUR #### [facility] [address] [place] [address] Dr. Manuel Sandhu LACTATE/LACTIC ACIDon 2021 Lactate [Moles/Vol] 1.5 mmol/L Normal 0.4-1.9 [facility] Comment on above: Performed By: #### I NFLUAB #### [facility] [address] [place] [address] Dr. Manuel Sandhu LIPASEon 08-11-2022 Lipase [Catalytic activity/Vol] 84.0 U/L Normal 73.0-393.0 [facility] Comment on above: Performed By: #### C CELINA JENNIE, LIPA #### [facility] [address] [place] [address] Dr. Manuel Sandhu URon 08-11-2022 , QUAL Negative Normal NEGATIVE [facility] Comment on above: Performed By: #### U MICRO, ERUR #### [facility] [address] [place] [address] Dr. Manuel Sandhu PROF 14(COMP METB)on 022 Albumin [Mass/Vol] 4.3 g/dL Normal 3.4-5.0 [facility] Comment on above: Performed By: #### C CELINA JENNIE, LIPA #### [facility] [address] [place] [address] Dr. Manuel Sandhu Albumin/Globulin [Mass ratio] 1.1 {ratio} Normal [facility] Comment on above: Performed By: #### C MP, JENNIE, LIPA #### [facility] [address] [place] [address] Dr. Manuel Sandhu ALP [Catalytic activity/Vol] 87 U/L Normal 46-[address] [facility] Comment on above: Performed By: #### C MP JENNIE, LIPA #### [facility] [address] [place] [address] Dr. Manuel Sandhu ALT [Catalytic activity/Vol] 32 U/L Normal 14-59 [facility] Comment on above: Performed By: #### C JENNIE PATRICK, LIPA #### [facility] [address] [place] [address] Dr. Manuel Sandhu Anion gap [Moles/Vol] 12.7 mmol/L Normal [facility] Comment on above: Performed By: #### C JENNIE PATRICK, LIPA #### [facility] [address] [place] [address] Dr. Manuel Sandhu AST [Catalytic activity/Vol] 24 U/L Normal 15-37 [facility] Comment on above: Performed By: #### C JENNIE PATRICK, LIPA #### [facility] [address] [place] [address] Dr. Manuel Sandhu Bilirubin [Mass/Vol] 0.3 mg/dL Normal 0.2-1.0 [facility] Comment on above: Performed By: #### C JENNIE PATRICK, LIPA #### [facility] [address] [place] [address] Dr. Manuel Sandhu Calcium [Mass/Vol] 9.4 mg/dL Normal 8.5-10.1 [facility] Comment on above: Performed By: #### C JENNIE PATRICK LIPA #### [facility] [address] [place] [address] Dr. Manuel Sandhu Chloride [Moles/Vol] 100 mmol/L Normal 98-107 [facility] Comment on above: Performed By: #### C CELINA JENNIE, LIPA #### [facility] [address] [place] [address] Dr. Manuel Sandhu CO2 [Moles/Vol] 27.7 mmol/L Normal 21.0-32.0 [facility] Comment on above: Performed By: #### C CELINA JENNIE, LIPA #### [facility] [address] [place] [address] Dr. Manuel Sandhu Creatinine [Mass/Vol] 0.71 mg/dL Normal 0.55-1.02 [facility] Comment on above: Performed By: #### C CELINA JENNIE, LIPA #### [facility] [address] [address] [address] Manuel Sandhu EGFR-AF IRAQI >60 Normal >=60 [facility] Comment on above: Performed By: #### C JENNIE PATRICK, LIPA #### [facility] [address] [address] [address] Manuel Sandhu EGFR-NON AF IRAQI >60 Normal >=60 [facility] Comment on above: Performed By: #### C JENNIE PATRICK, LIPA #### [facility] [address] [address] [address] Manuel Sandhu Globulin (S) [Mass/Vol] 3.9 g/dL Normal [facility] Comment on above: Performed By: #### C JENNIE PATRICK, LIPA #### [facility] [address] [address] [address] Manuel Sandhu Glucose [Mass/Vol] 109 mg/dL Critically high 74-106 [facility] Comment on above: Performed By: #### C JENNIE PATRICK, LIPA #### [facility] [address] [address] [address] Manuel Sandhu Potassium [Moles/Vol] 3.4 mmol/L Critically low 3.5-5.1 [facility] Comment on above: Performed By: #### C JENNIE PATRICK, LIPA #### [facility] [address] [address] [address] Manuel Sandhu Protein [Mass/Vol] 8.2 g/dL Normal 6.4-8.2 [facility] Comment on above: Performed By: #### C CELINA JENNIE, LIPA #### [facility] [address] [address] [address] Manuel Snadhu Sodium [Moles/Vol] 137 mmol/L Normal 136-145 [facility] Comment on above: Performed By: #### C CELINA JENNIE, LIPA #### [facility] [address] [address] [address] Manuel Sandhu Urea nitrogen [Mass/Vol] 10.0 mg/dL Normal 7.0-18.0 [facility] Comment on above: Performed By: #### C MP, JENNIE, LIPA #### [facility] [address] [address] [address] Manuel Sandhu Urea nitrogen/Creatinine [Mass ratio] 14.1 mg/mg Normal [facility] Comment on above: Performed By: #### C MP, JENNIE, LIPA #### [facility] [address] [place] [address] Dr. Manuel Sandhu PROTIMEon 08-11-2022 INR Coag (PPP) [Relative time] 0.96 {INR} Normal [facility] Comment on above: Performed By: #### I NFLUAB #### [facility] [address] [place] [address] Dr. Manuel Sandhu INR GUIDELINES SEE BELOW Normal [facility] Comment on above: Result Comment: CHUY RED INR: 2.0 - 3.0 CONDITIONS NOT LISTED BELOW 2.5 - 3.5 FOR PROSTHETIC HEART VALVE REPLACEMENT 2.5 - 3.5 RECURRENT THROMBOSIS Performed By: #### I NFLUAB #### [facility] [address] [place] [address] Dr. Manuel Sandhu PT Coag (PPP) [Time] 10.4 s Normal 9.0-11.[address] [facility] Comment on above: Performed By: #### I NFLUAB #### [facility] [address] [place] [address] Dr. Manuel Sandhu PTTon 08-11-2022 aPTT Coag (Bld) [Time] 25.3 s Normal 22.3-36.[address] [facility] Comment on above: Performed By: #### I NFLUAB #### [facility] [address] [place] [address] Dr. Manuel Sandhu TROPONIN, HIGH SENSITIVITYon 08-11-2022 HSTROP 4.5 pg/mL Normal 4.0-51.[address] [facility] Comment on above: Result Comment: CUT- OFF POINTS HAVE BEEN ESTABLISHED BASED ON THE FOURTH UNIVERSAL DEFINITIONS OF MYOCARDIAL INFARCTION. THE UPPER REFERENCE LIMIT (URL) OF TROPONIN, DEFINED THE 99TH PERCENTILE OF cTnI DISTRIBUTION IN A REFERENCE POPULATION, HAS BEEN CONFIRMED THE DECISION THRESHOLD FOR [place] DIAGNOSIS. Performed By: #### C JENNIE PATRICK, LIPA #### [facility] [address] [place], [place] [address] Dr. Manuel Sandhu TSHon 08-11-2022 TSH 1.778 uIU/mL Normal 0.358-3.740 [facility] Comment on above: Performed By: #### C JENNIE PATRICK, LIPA #### [facility] [address] [id number] Manuel Sandhu CHEMISTRYOrdered By: SYSTEM SYSTEM on 08-08-2022 Anion gap [Moles/Vol] 11 mmol/L Normal 6 - 16 mEq/L [facility] Remisol Calcium [Mass/Vol] 9.0 mg/dL Normal 8.9 [...] rate/Area] mL/min/1.73 m2 Normal >=59mL/min/1 .73 m2 [facility] [place] S Glucose [Mass/Vol] 84 mg/dL Normal 55 - 199 mg/dL [facility] Remisol Potassium [Moles/Vol] 4.2 mmol/L Normal 3.5 - 5.3 mmol/L [facility] Sodium [Moles/Vol] 137 mmol/L Normal 135 - 145 mmol/L [facility] Urea nitrogen [Mass/Vol] 13 mg/dL Normal 5 - 21 mg/dL [facility] Urea nitrogen/Creatinine [Mass ratio] 22 mg/mg High 10 - 20 [facility] CHEMISTRYOrdered By: Lab ROP User on 08-08-2022 Glucose [Mass/Vol] 98 mg/dL Normal 55 - 99 mg/dL [facility] [place] P[place] Subsection POC Device SN [id number] Invalid Interpretation Code [facility] [place] POC Subsection POC User ID [id number] Invalid Interpretation Code [facility] [place] POC Subsection POC Username MOLLY RALPH Invalid Interpretation Code [facility] [place] [...] Ag Negative (08/08/22 9:59 AM) Normal Negative [facility] [place] Sero Influenzae B Ag Negative (08/08/22 9:59 AM) Normal Negative [facility] Man Sero Rapid COV Int NEG [place] (08/08/22 9:59 AM) Normal [facility] Man Sero Rapid COV Int POS Ctl Pass (08/08/22 9:59 AM) Normal [facility] [place] Sero SARS-CoV+SARS-CoV-2 (COVID-19) Ag IA.rapid Ql [...] AM) Normal Negative [facility] UA Auto SS Franquez.plasma/Lithiu m.RBC (Bld) [Mass ratio] 0-3 /HPF Normal 0-3/HPF [facility] UA Auto SS Nitrite Ql (U) Negative (08/08/22 10:01 AM) Normal Negative [facility]A Auto SS pH (U) 5.5 *NA* (08/08/22 10:01 AM) Invalid Interpretation Code 5.0 - 9.0 [facility] [place] UA Auto SS Protein (U) [Mass/Vol] Negative (08/08/22 10:01 AM) Normal Negative [facility] [place] UA Auto SS Specific gravity (U) [Rel density] <=1.005 *NA* (08/08/22 10:01 AM) Invalid Interpretation Code 1.005 - 1.030 [facility] [place] UA Auto SS UA Spec Desc Clean Catch (08/08/22 10:01 AM) Normal [facility] [place] UA Auto SS Urobilinogen Qn (U) 0.1204383 {Lucila'U}/dL Normal 0.0 - 1.0 EU/dL [facility] [place] UA Auto SS WBC Auto Ql (U) Negative (08/08/22 10:01 AM) Normal Negative [facility] [place] UA Auto SS WBC LM.HPF (Urine sed) [#/Area] 0-5 /HPF Normal 0-5/HPF [facility] [place] UA Auto SS CBC AUTO DIFFon 07-19-2022 BASO # 0.1 103/ul Normal 0.0-0.[address] [facility] Comment on above: Performed By: #### I NFLUAB #### [facility] [address] [place], [place] [address] Dr. Manuel Sandhu Basophils/100 WBC (Bld) 0.4 % Normal 0.2-2.[address] [facility] Comment on above: Performed By: #### I NFLUAB #### [facility] [address] [place] [address] Dr. Manuel Sandhu EO # 0.3 103/ul Normal 0.0-0.[address] [facility] Comment on above: Performed By: #### I NFLUAB #### [facility] [address] [place] [address] Dr. Manuel Sandhu Eosinophils/100 WBC (Bld) 2.4 % Normal 0.9-7.[address] [facility] Comment on above: Performed By: #### I NFLUAB #### [facility] [address] [place] [address] Dr. Manuel Sandhu Erythrocyte distribution width (RBC) [Ratio] 13.7 % Normal 11.0-15.[address] [facility] Comment on above: Performed By: #### I NFLUAB #### [facility] [address] [place] [address] Dr. Manuel Sandhu Hematocrit (Bld) [Volume fraction] 36.5 % Normal 36.0-48.[address] [facility] Comment on above: Performed By: #### I NFLUAB #### [facility] [address] [place] [address] Dr. Manuel Sandhu Hemoglobin (Bld) [Mass/Vol] 12.3 g/dL Normal 12.0-16.0 [facility] [place] Comment on above: Performed By: #### I NFLUAB #### [facility] [address] [place] [address] Dr. Manuel Sandhu IG # 0.04 10e3/ul Critically high 0.00-0.03 [facility] Comment on above: Performed By: #### I NFLUAB #### [facility] [address] [place] [address] Dr. Manuel Sandhu IG % 0.3 % Normal 0.0-0.[address] [facility] Comment on above: Performed By: #### I NFLUAB #### [facility] [address] [place] [address] Dr. Manuel Sandhu LYMPH # 2.6 103/ul Normal 1.2-3.[address] [facility] Comment on above: Performed By: #### I NFLUAB #### [facility] [address] [place] [address] Dr. Manuel Sandhu Lymphocytes/100 WBC (Bld) 22.3 % Normal 20.5-60.[address] [facility] Comment on above: Performed By: #### I NFLUAB #### [facility] [address] [place] [address] Dr. Manuel Sandhu MANUAL DIFF REQ NO Normal [facility] Comment on above: Performed By: #### I NFLUAB #### [facility] [address] [place] [address] Dr. Manuel Sandhu MCH (RBC) [Entitic mass] 32.5 pg Normal 26.7-34.[address] [facility] Comment on above: Performed By: #### I NFLUAB #### [facility] [address] [place] [address] Dr. Manuel Sandhu MCHC (RBC) [Mass/Vol] 33.7 g/dL Normal 29.9-35.[address] [facility] Comment on above: Performed By: #### I NFLUAB #### [facility] [address] [place] [address] Dr. Manuel Sandhu MCV (RBC) [Entitic vol] 96.6 fL Normal 81.0-99.0 [facility] Comment on above: Performed By: #### I NFLUAB #### [facility] [address] [place] [address] Dr. Manuel Sandhu MONO # 0.6 103/ul Normal 0.3-0.[address] [facility] Comment on above: Performed By: #### I NFLUAB #### [facility] [address] [place] [address] Dr. Manuel Sandhu Monocytes/100 WBC (Bld) 5.2 % Normal 1.7-12.[address] [facility] Comment on above: Performed By: #### I NFLUAB #### [facility] [address] [place] [address] Dr. Manuel Sandhu NEUT # 8.2 103/ul Critically high 1.4-6.5 [facility] Comment on above: Performed By: #### I NFLUAB #### [facility] [address] [address] [address] Manuel Sandhu Neutrophils/100 WBC (Bld) 69.4 % Normal 43.0-75.0 [facility] Comment on above: Performed By: #### I NFLUAB #### [facility] [address] [address] [address] Manuel Sandhu Platelet mean volume (Bld) [Entitic vol] 11.2 fL Normal 9.5-13.5 [facility] [place] Comment on above: Performed By: #### I NFLUAB #### [facility] [address] [address] [address] Manuel Sandhu PLT 308 103/ul Normal 150-450 [facility] [place] Comment on above: Performed By: #### I NFLUAB #### [facility] [address] [place] [address] Dr. Manuel Sandhu RBC 3.78 106/ul Critically low 4.20-5.40 [facility] Comment on above: Performed By: #### I NFLUAB #### [facility] [address] [address] [address] Manuel Sandhu WBC 11.8 103/ul Critically high 4.0-11.0 [facility] Comment on above: Performed By: #### I NFLUAB #### [facility] [address] [place] [address] Dr. Manuel Sandhu D-DIMERon 07-19-2022 D-DIMER 0.29 mg/L FEU Normal <=0.59 [facility] Comment on above: Performed By: #### U MICRO, ERUR #### [facility] [address] [address] [address] Manuel Sandhu D-DIMER COMMENTS SEE BELOW Normal [facility] Comment on above: Result Comment: Incr [...] Performed By: #### U MICRO, ERUR #### [facility] [address] [place] [address] Dr. Manuel Sandhu LIPASEon 07-19-2022 Lipase [Catalytic activity/Vol] 119.0 U/L Normal 73.0-393.0 [facility] [place] Comment on above: Performed By: #### C MP, JENNIE, LIPA #### [facility] [address] [place] [address] Dr. Manuel Sandhu PROF 14(COMP METB)on 022 Albumin [Mass/Vol] 3.5 g/dL Normal 3.4-5.0 [facility] Comment on above: Performed By: #### C MP, JENNIE, LIPA #### [facility] [address] [place] [address] Dr. Manuel Sandhu Albumin/Globulin [Mass ratio] 1.0 {ratio} Normal [facility] [place] Comment on above: Performed By: #### C MP, JENNIE, LIPA #### [facility] [address] [place] [address] Dr. Manuel Sandhu ALP [Catalytic activity/Vol] 65 U/L Normal 46-116 [facility] [place] Comment on above: Performed By: #### C MP, JENNIE, LIPA #### [facility] [address] [place] [address] Dr. Manuel Sandhu ALT [Catalytic activity/Vol] 33 U/L Normal 14-59 [facility] [place] Comment on above: Performed By: #### C MP, JENNIE, LIPA #### [facility] [address] [place] [address] Dr. Manuel Sandhu Anion gap [Moles/Vol] 10.8 mmol/L Normal [facility] Comment on above: Performed By: #### C MP, JENNIE, LIPA #### [facility] [address] [place] [address] Dr. Manuel Sandhu AST [Catalytic activity/Vol] 20 U/L Normal 15-37 [facility] [place] Comment on above: Performed By: #### C CELINA JENNIE, LIPA #### [facility] [address] [place] [address] Dr. Manuel Sandhu Bilirubin [Mass/Vol] 0.1 mg/dL Critically low 0.2-1.0 [facility] [place] Comment on above: Performed By: #### C MP JENNIE, LIPA #### [facility] [address] [place] [address] Dr. Manuel Sandhu Calcium [Mass/Vol] 8.7 mg/dL Normal 8.5-10.1 [facility] Comment on above: Performed By: #### C CELINA JENNIE, LIPA #### [facility] [address] [place] [address] Dr. Manuel Sandhu Chloride [Moles/Vol] 105 mmol/L Normal 98-107 [facility] [place] Comment on above: Performed By: #### C CELINA JENNIE, LIPA #### [facility] [address] [place] [address] Dr. Manuel Sandhu CO2 [Moles/Vol] 24.4 mmol/L Normal 21.0-32.0 [facility] Comment on above: Performed By: #### C CELINA JENNIE, LIPA #### [facility] [address] [place] [address] Dr. Manuel Sandhu Creatinine [Mass/Vol] 0.91 mg/dL Normal 0.55-1.02 [facility] [place] Comment on above: Performed By: #### C CELINA JENNIE, LIPA #### [facility] [address] [place] [address] Dr. Manuel Sandhu EGFR-AF IRAQI >60 Normal >=60 [facility] Comment on above: Performed By: #### C CELINA JENNIE, LIPA #### [facility] [address] [place] [address] Dr. Manuel Sandhu EGFR-NON AF IRAQI >60 Normal >=60 [facility] [place] Comment on above: Performed By: #### C MP JENNIE, LIPA #### [facility] [address] [place] [address] Dr. Manuel Sandhu Globulin (S) [Mass/Vol] 3.4 g/dL Normal [facility] [place] Comment on above: Performed By: #### C JENNIE PATRICK LIPA #### [facility] [address] [address] [address] Manuel Sandhu Glucose [Mass/Vol] 127 mg/dL Critically high 74-106 [facility] Comment on above: Performed By: #### C JENNIE PATRICK LIPA #### [facility] [address] [place] [address] Dr. Manuel Sandhu Potassium [Moles/Vol] 3.2 mmol/L Critically low 3.5-5.1 [facility] [place] Comment on above: Performed By: #### C JENNIE PATRICK LIPA #### [facility] [address] [place] [address] Dr. Manuel Sandhu Protein [Mass/Vol] 6.9 g/dL Normal 6.4-8.2 [facility] Comment on above: Performed By: #### C JENNIE PATRICK LIPA #### [facility] [address] [place] [address] Dr. Manuel Sandhu Sodium [Moles/Vol] 137 mmol/L Normal 136-145 [facility] Comment on above: Performed By: #### C JENNIE PATRICK LIPA #### [facility] [address] [place] [address] Dr. Manuel Sandhu Urea nitrogen [Mass/Vol] 13.0 mg/dL Normal 7.0-18.0 [facility] [place] Comment on above: Performed By: #### C JENNIE PATRICK LIPA #### [facility] [address] [place] [address] Dr. Manuel Sandhu Urea nitrogen/Creatinine [Mass ratio] 14.3 mg/mg Normal [facility] [place] Comment on above: Performed By: #### C JENNIE PATRICK LIPA #### [facility] [address] [place] [address] Dr. Manuel Sandhu PROTIMEon 07-19-2022 INR Coag (PPP) [Relative time] 0.97 {INR} Normal [facility] [place] Comment on above: Performed By: #### P TT, PT #### [facility] [address] [place] [address] Dr. Manuel Sandhu INR GUIDELINES SEE BELOW Normal [facility] Comment on above: Result Comment: CHUY RED INR: 2.0 - 3.0 CONDITIONS NOT LISTED BELOW 2.5 - 3.5 FOR PROSTHETIC HEART VALVE REPLACEMENT 2.5 - 3.5 RECURRENT THROMBOSIS Performed By: #### P TT, PT #### [facility] [address] [address] [address] Manuel Sandhu PT Coag (PPP) [Time] 10.5 s Normal 9.0-11.[address] [facility] Comment on above: Performed By: #### P TT, PT #### [facility] [address] [place] [address] Dr. Manuel Sandhu PTTon 07-19-2022 aPTT Coag (Bld) [Time] 26.1 s Normal 22.3-36.[address] [facility] Comment on above: Performed By: #### P TT, PT #### [facility] [address] [place] [address] Dr. Manuel Sandhu TROPONIN, HIGH SENSITIVITYon 07-19-2022 HSTROP 5.4 pg/mL Normal 4.0-51.[address] [facility] Comment on above: Result Comment: CUT- OFF POINTS HAVE BEEN ESTABLISHED BASED ON THE FOURTH UNIVERSAL DEFINITIONS OF MYOCARDIAL INFARCTION. THE UPPER REFERENCE LIMIT (URL) OF TROPONIN, DEFINED THE 99TH PERCENTILE OF cTnI DISTRIBUTION IN A REFERENCE POPULATION, HAS BEEN CONFIRMED THE DECISION THRESHOLD FOR [place] DIAGNOSIS. Performed By: #### U MICRO, ERUR #### [facility] [address] [place] [address] Dr. Manuel Sandhu HSTROP 5.1 pg/mL Normal 4.0-51.[address] [facility] Comment on above: Result Comment: CUT- OFF POINTS HAVE BEEN ESTABLISHED BASED ON THE FOURTH UNIVERSAL DEFINITIONS OF MYOCARDIAL INFARCTION. THE UPPER REFERENCE LIMIT (URL) OF TROPONIN, DEFINED THE 99TH PERCENTILE OF cTnI DISTRIBUTION IN A REFERENCE POPULATION, HAS BEEN CONFIRMED THE DECISION THRESHOLD FOR MN DIAGNOSIS. Performed By: #### C MP, JENNIE, LIPA #### [facility] [address] [place], [place] [address] Dr. Manuel Sandhu XR CHEST 1 Von [...] LUCIANA ALLEN Date: 2022-07-19 19:[address] [facility] Covid-19 PCR ([facility]VD[facility])on 05-16 SARS-CoV-2 (COVID-19) RNA JOSÉ MIGUEL+probe Ql (Unsp spec) Not detected Normal NOT DETECTED [facility] Comment on above: Result Comment: When [...] for this test is supported by the [employer] of Health and Human Service's declaration that [...] By: #### C JENNIE PATRICK LIPA #### [facility] [address] [place], [place] [address] Dr. Manuel Sandhu XR CHEST 2 Von [...] CAROLYNE RALPH Date: 2022-06-12 10:[address] [facility] Covid-19 PCR ([facility])on 05-15 SARS-CoV-2 (COVID-19) RNA JOSÉ MIGUEL+probe Ql (Unsp spec) Not detected Normal NOT DETECTED [facility] Comment on above: Result Comment: When [...] for this test is supported by the [place] of Health and Human Service's declaration that [...] used). Performed By: #### I NFLUAB #### [facility] [address] [place] [address] Dr. Manuel Sandhu CHEMISTRYOrdered By: SYSTEM SYSTEM [...] rate/Area] mL/min/1.73 m2 Normal >=59mL/min/1 .73 m2 [facility] [place] S GFR/1.73 sq M.predicted among non-blacks MDRD (S/P/Bld) [Vol rate/Area] mL/min/1.73 m2 Normal >=59mL/min/1 .73 m2 [facility] [place] S Glucose [Mass/Vol] 98 mg/dL Normal 55 - 199 mg/dL [facility] Potassium [Moles/Vol] 3.6 mmol/L Normal 3.5 - 5.3 mmol/L [facility] Sodium [Moles/Vol] 137 mmol/L Normal 135 - 145 mmol/L [facility] Urea nitrogen [Mass/Vol] 15 mg/dL Normal 5 - 21 mg/dL [facility] Urea nitrogen/Creatinine [Mass ratio] 25 mg/mg High 10 - 20 [facility] HEMATOLOGYOrdered By: SYSTEM SYSTEM on 04-20-2022 [...] 73.5 % Normal 36.0 - 75.0 % [facility] HemeAutoSS Neutrophils/Leukocyte s Auto (Bld) [Pure # [...] spec) Detected Critically abnormal NOT DETECTED [facility] Comment on above: Result Comment: This test is not yet approved or cleared by the [place] FDA. When there are no FDA-approved or cleared tests available, and other criteria are met, FDA can make tests available under an emergency access mechanism called an Emergency Use Authorization (EUA). The EUA for this test is supported by the [employer] Picker of Health and Human Service's declaration that [...] longer be used). Performed By: #### C EJNNIE PATRICK LIPA #### [facility] [address] [place] [address] Dr. Manuel Sandhu GROUP A STREP CULTUREon 03-15 S. pyogenes Ag Ql (Unsp spec) Culture Observations: NEGATIVE FOR GROUP A STREPTOCOCCUS. Normal [facility] Comment on above: Performed By: #### U MICRO, ERUR #### [facility] [address] [place] [address] Dr. Manuel Sandhu INFLUENZA A AND B AGon 04-07 INFLUENZA A AG Negative Normal NEGATIVE SEE COMMENT [facility] Comment on above: Performed By: #### I NFLUAB #### [facility] [address] [place] [address] Dr. Manuel Sandhu INFLUENZA B AG Negative Normal NEGATIVE SEE COMMENT [facility] Comment on above: Performed By: #### I NFLUAB #### [facility] [address] [place] [address] Dr. Manuel Sandhu INTERNAL CONTROLS Within Normal Limits Normal Wi thin Normal Limits [facility] Comment on above: Performed By: #### I NFLUAB #### [facility] [address] [place] [address] Dr. Manuel Sandhu STREPT SCREENon 04-07-2022 STREP SCREEN A Negative Normal NEGATIVE [facility] Comment on above: Performed By: #### U MICRO, ERUR #### [facility] [address] [place] [address] Dr. Manuel Sandhu CHEMISTRYOrdered By: SYSTEM SYSTEM [...] 11.3 E9/L High 4.0 - 11.0 E9/L [facility] HemeAutoSS URINALYSISOrdered By: Aspen Leonard on 04-03-2022 [...] PM) Normal Negative [facility] UA Auto SS Franquez.plasma/Lithiu m.RBC (Bld) [Mass ratio] 0-3 /HPF Normal [...] [facility] UA Auto SS Urobilinogen Qn (U) [id number] {Lucila'U}/dL Normal 0.0 - 1.0 EU/dL [facility] UA Auto SS WBC Auto Ql (U) Negative (04/03/22 6:51 PM) Normal Negative [facility] UA Auto SS WBC LM.HPF (Urine sed) [#/Area] 0-5 /HPF Normal 0-5/HPF [facility] UA Auto SS GROUP A STREP CULTUREon 01-13 S. pyogenes Ag Ql (Unsp spec) Culture Observations: NEGATIVE FOR GROUP A STREPTOCOCCUS. Normal [facility] Comment on above: Performed By: #### I NFLUAB #### [facility] [address] [place] [address] Dr. Manuel Sandhu STREPT SCREENon 02-08-2022 STREP SCREEN A Negative Normal NEGATIVE [facility] Comment on above: Performed By: #### I NFLUAB #### [facility] [address] [place] [address] Dr. Manuel Sandhu CBC AUTO DIFFon 01-30-2022 BASO # 0.1 103/ul Normal 0.0-0.1 [facility] [place] Comment on above: Performed By: #### C BC #### [facility] [address] [place] [address] Dr. Manuel Sandhu Basophils/100 WBC (Bld) 0.4 % Normal 0.2-2.0 [facility] [place] Comment on above: Performed By: #### C BC #### [facility] [address] [place] [address] Dr. Manuel Sandhu EO # 0.4 103/ul Normal 0.0-0.7 [facility] [place] Comment on above: Performed By: #### C BC #### [facility] [address] [place] [address] Dr. Manuel Sandhu Eosinophils/100 WBC (Bld) 3.0 % Normal 0.9-7.[address] [facility] Comment on above: Performed By: #### C BC #### [facility] [address] [place] [address] Dr. Manuel Sandhu Erythrocyte distribution width (RBC) [Ratio] 13.3 % Normal 11.0-15.[address] [facility] Comment on above: Performed By: #### C BC #### [facility] [address] [place] [address] Dr. Manuel Sandhu Hematocrit (Bld) [Volume fraction] 36.8 % Normal 36.0-48.0 [facility] [place] Comment on above: Performed By: #### C BC #### [facility] [address] [address] [address] Manuel Sandhu Hemoglobin (Bld) [Mass/Vol] 12.2 g/dL Normal 12.0-16.0 [facility] [place] Comment on above: Performed By: #### C BC #### [facility] [address] [address] [address] Manuel Sandhu IG # 0.04 10e3/ul Critically high 0.00-0.03 [facility] Comment on above: Performed By: #### C BC #### [facility] [address] [place] [address] Dr. Manuel Sandhu IG % 0.3 % Normal 0.0-0.5 [facility] [place] Comment on above: Performed By: #### C BC #### [facility] [address] [place] [address] Dr. Manuel Sandhu LYMPH # 2.8 103/ul Normal 1.2-3.[address] [facility] Comment on above: Performed By: #### C BC #### [facility] [address] [place] [address] Dr. Manuel Sandhu Lymphocytes/100 WBC (Bld) 23.0 % Normal 20.5-60.0 [facility] [place] Comment on above: Performed By: #### C BC #### [facility] [address] [place] [address] Dr. Manuel Sandhu MANUAL DIFF REQ NO Normal [facility] Comment on above: Performed By: #### C BC #### [facility] [address] [place] [address] Dr. Manuel Sandhu MCH (RBC) [Entitic mass] 32.1 pg Normal 26.7-34.[address] [facility] Comment on above: Performed By: #### C BC #### [facility] [address] [place] [address] Dr. Manuel Sandhu MCHC (RBC) [Mass/Vol] 33.2 g/dL Normal 29.9-35.[address] [facility] Comment on above: Performed By: #### C BC #### [facility] [address] [address] [address] Manuel Sandhu MCV (RBC) [Entitic vol] 96.8 fL Normal 81.0-99.0 [facility] [place] Comment on above: Performed By: #### C BC #### [facility] [address] [place] [address] Dr. Manuel Sandhu MONO # 0.7 103/ul Normal 0.3-0.[address] [facility] Comment on above: Performed By: #### C BC #### [facility] [address] [place] [address] Dr. Manuel Sandhu Monocytes/100 WBC (Bld) 5.6 % Normal 1.7-12.0 [facility] [place] Comment on above: Performed By: #### C BC #### [facility] [address] [place] [address] Dr. Manuel Sandhu NEUT # 8.2 103/ul Critically high 1.4-6.5 [facility] Comment on above: Performed By: #### C BC #### [facility] [address] [place] [address] Dr. Manuel Sandhu Neutrophils/100 WBC (Bld) 67.7 % Normal 43.0-75.[address] [facility] Comment on above: Performed By: #### C BC #### [facility] [address] [place] [address] Dr. Manuel Sandhu Platelet mean volume (Bld) [Entitic vol] 11.2 fL Normal 9.5-13.[address] [facility] Comment on above: Performed By: #### C BC #### [facility] [address] [place] [address] Dr. Manuel Sandhu PLT 312 103/ul Normal 150-[address] [facility] Comment on above: Performed By: #### C BC #### [facility] [address] [place] [address] Dr. Manuel Sandhu RBC 3.80 106/ul Critically low 4.20-5.40 [facility] Comment on above: Performed By: #### C BC #### [facility] [address] [place] [address] Dr. Manuel Sandhu WBC 12.1 103/ul Critically high 4.0-11.0 [facility] Comment on above: Performed By: #### C BC #### [facility] [address] [address] [address] Manuel Sandhu Covid-19 PCR ([facility])on 01-12 SARS-CoV-2 (COVID-19) RNA JOSÉ MIGUEL+probe Ql (Unsp spec) Not detected Normal NOT DETECTED [facility] Comment on above: Result Comment: This test is not yet approved or cleared by the [place] FDA. When there are no FDA-approved or cleared tests available, and other criteria are met, FDA can make tests available under an emergency access mechanism called an Emergency Use Authorization (EUA). The EUA for this test is supported by the [place] of Health and Human Service's (HHS's) declaration [...] consistent with SARS-CoV-2. Performed By: #### C VDTB #### [facility] [address] [address] [address] Manuel Sandhu DRUG SCREEN RAPID (URINE)on 01-30-2022 AMP Negative Normal NEGATIVE [facility] [place] Comment on above: Performed By: #### U MICRO, ERUR #### [facility] [address] [address] [address] Manuel Sandhu BAR Negative Normal NEGATIVE [facility] Comment on above: Performed By: #### U MICRO, ERUR #### [facility] [address] [address] [address] Manuel Sandhu BUP Negative Normal NEGATIVE [facility] Comment on above: Performed By: #### U MICRO, ERUR #### [facility] [address] [place] [address] Dr. Manuel Sandhu BZO Negative Normal NEGATIVE [facility] [place] Comment on above: Performed By: #### U MICRO, ERUR #### [facility] [address] [place] [address] Dr. Manuel Sandhu WISAM Negative Normal NEGATIVE [facility] [place] Comment on above: Performed By: #### U MICRO, ERUR #### [facility] [address] [place] [address] Dr. Manuel Sandhu CUT-OFFS SEE BELOW Normal [facility] [place] Comment on above: Result Comment: AMP (Amphetamine): [...] Performed By: #### U MICRO, ERUR #### [facility] [address] [place] [address] Dr. Manuel Sandhu DRUG CUT HEADER DRUG CLASS TEST SYST EM CUT-OFF CONCENTRATIONS ARE FOLLOWS: Normal [facility] [place] Comment on above: Performed By: #### U MICRO, ERUR #### [facility] [address] [place] [address] Dr. Manuel Sandhu mAMP Negative Normal NEGATIVE [facility] [place] Comment on above: Performed By: #### U MICRO, ERUR #### [facility] [address] [place] [address] Dr. Manuel Sandhu MTD Negative Normal NEGATIVE [facility] [place] Comment on above: Performed By: #### U MICRO, ERUR #### [facility] [address] [place] [address] Dr. Manuel Sandhu OPI Negative Normal NEGATIVE [facility] [place] Comment on above: Performed By: #### U MICRO, ERUR #### [facility] [address] [address] [address] Manuel Sandhu OXY Negative Normal NEGATIVE [facility] [place] Comment on above: Performed By: #### U MICRO, ERUR #### [facility] [address] [address] [address] Manuel Sandhu PCP Negative Normal NEGATIVE [facility] [place] Comment on above: Performed By: #### U MICRO, ERUR #### [facility] [address] [address] [address] Manuel Sandhu PPX Negative Normal NEGATIVE [facility] [place] Comment on above: Performed By: #### U MICRO, ERUR #### [facility] [address] [place] [address] Dr. Manuel Sandhu TCA Negative Normal NEGATIVE [facility] [place] Comment on above: Performed By: #### U MICRO, ERUR #### [facility] [address] [place] [address] Dr. Manuel Sandhu THC Negative Normal NEGATIVE [facility] [place] Comment on above: Performed By: #### U MICRO, ERUR #### [facility] [address] [address] [address] Manuel Sandhu ER URINE PROFILEon 2 Bilirubin Ql (U) Negative Normal NEGATIVE [facility] Comment on above: Performed By: #### U MICRO, ERUR #### [facility] [address] [place] [address] Dr. Manuel Sandhu Clarity (U) CLEAR Normal CLEAR [facility] [place] Comment on above: Performed By: #### U MICRO, ERUR #### [facility] [address] [place] [address] Dr. Manuel Sandhu Color (U) LT. YELLOW Normal YELLOW [facility] [place] Comment on above: Performed By: #### U MICRO, ERUR #### [facility] [address] [place] [address] Dr. Manuel Sandhu ERUAHD A micrscopic examina tion will be performed if indicated. Normal [facility] Comment on above: Performed By: #### U MICRO, ERUR #### [facility] [address] [address] [address] Manuel Sandhu Glucose Ql (U) Negative Normal NEGATIVE [facility] Comment on above: Performed By: #### U MICRO, ERUR #### [facility] [address] [address] [address] Manuel Sandhu Hemoglobin Ql (U) Negative Normal NEGATIVE [facility] Comment on above: Performed By: #### U MICRO, ERUR #### [facility] [address] [address] [address] Manuel Sandhu Ketones Ql (U) Negative Normal NEGATIVE [facility] [facility] Comment on above: Performed By: #### U MICRO, ERUR #### [facility] [address] [address] [address] Manuel Sandhu LEUKOCYTES Negative Normal NEGATIVE [facility] [place] Comment on above: Performed By: #### U MICRO, ERUR #### [facility] [address] [address] [address] Manuel Sandhu Nitrite Ql (U) Negative Normal NEGATIVE [facility] Comment on above: Performed By: #### U MICRO, ERUR #### [facility] [address] [address] [address] Manuel Sandhu pH (U) 5.5 [pH] Normal 5-9 [facility] [place] Comment on above: Performed By: #### U MICRO, ERUR #### [facility] [address] [address] [address] Manuel Sandhu SPEC GRAVITY <=1.005 Abnormal 1.005-<=1.[address] [place] [address] Comment on above: Performed By: #### U MICRO, ERUR #### [facility] [address] [address] [address] Manuel Sandhu UA PROTEIN Negative Normal NEGATIVE/ TRACE [facility] Comment on above: Performed By: #### U MICRO, ERUR #### [facility] [address] [address] [address] Manuel Sandhu UR MICRO IND NOT INDICATED Normal [facility] Comment on above: Performed By: #### U MICRO, ERUR #### [facility] [address] [address] [address] Manuel Sandhu Urobilinogen Qn (U) 0.2 {Lucila'U}/dL Normal 0.2 - 1. 0 [facility] [place] Comment on above: Performed By: #### U MICRO, ERUR #### [facility] [address] [place] [address] Dr. Manuel Sandhu ETHANOL (BLD ALC)on 01-31-20 22 ALC NOTE NOTE: 80 mg/dl is th e legal limit for a blood alcohol level Normal [facility] [place] Comment on above: Performed By: #### I NFLUAB #### [facility] [address] [place] [address] Dr. Manuel Sandhu Ethanol [Mass/Vol] 47 mg/dL Normal [facility] Comment on above: Performed By: #### I NFLUAB #### [facility] [address] [place] [address] Dr. Manuel Sandhu PREG HCG QUALon 01-30-2022 , QUAL Negative Normal NEGATIVE [facility] Comment on above: Performed By: #### U MICRO, ERUR #### [facility] [address] [place] [address] Dr. Manuel Sandhu PROF 14(COMP METB)on 022 Albumin [Mass/Vol] 3.8 g/dL Normal 3.4-5.0 [facility] Comment on above: Performed By: #### I NFLUAB #### [facility] [address] [place] [address] Dr. Manuel Sandhu Albumin/Globulin [Mass ratio] 1.1 {ratio} Normal [facility] [place] Comment on above: Performed By: #### I NFLUAB #### [facility] [address] [place] [address] Dr. Manuel Sandhu ALP [Catalytic activity/Vol] 88 U/L Normal 46-116 [facility] [place] Comment on above: Performed By: #### I NFLUAB #### [facility] [address] [place] [address] Dr. Manuel Sandhu ALT [Catalytic activity/Vol] 30 U/L Normal 14-59 [facility] [place] Comment on above: Performed By: #### I NFLUAB #### [facility] [address] [place] [address] Dr. Manuel Sandhu Anion gap [Moles/Vol] 17.3 mmol/L Normal [facility] Comment on above: Performed By: #### I NFLUAB #### [facility] [address] [place] [address] Dr. Manuel Sandhu AST [Catalytic activity/Vol] 17 U/L Normal 15-37 [facility] [place] Comment on above: Performed By: #### I NFLUAB #### [facility] [address] [place] [address] Dr. Manuel Sandhu Bilirubin [Mass/Vol] 0.2 mg/dL Normal 0.2-1.0 [facility] [place] Comment on above: Performed By: #### I NFLUAB #### [facility] [address] [place] [address] Dr. Manuel Sandhu Calcium [Mass/Vol] 8.9 mg/dL Normal 8.5-10.1 [facility] Comment on above: Performed By: #### I NFLUAB #### [facility] [address] [place] [address] Dr. Manuel Sandhu Chloride [Moles/Vol] 109 mmol/L Critically high 98-107 [facility] [place] Comment on above: Performed By: #### I NFLUAB #### [facility] [address] [place] [address] Dr. Manuel Sandhu CO2 [Moles/Vol] 20.2 mmol/L Critically low 21.0-32.0 [facility] [place] Comment on above: Performed By: #### I NFLUAB #### [facility] [address] [place] [address] Dr. Manuel Sandhu Creatinine [Mass/Vol] 0.69 mg/dL Normal 0.55-1.02 [facility] [place] Comment on above: Performed By: #### I NFLUAB #### [facility] [address] [place] [address] Dr. Manuel Sandhu EGFR-AF IRAQI >60 Normal >=60 [facility] Comment on above: Performed By: #### I NFLUAB #### [facility] [address] [place] [address] Dr. Manuel Sandhu EGFR-NON AF IRAQI >60 Normal >=60 [facility] [place] Comment on above: Performed By: #### I NFLUAB #### [facility] [address] [address] [address] Manuel Sandhu Globulin (S) [Mass/Vol] 3.6 g/dL Normal [facility] [place] Comment on above: Performed By: #### I NFLUAB #### [facility] [address] [address] [address] Manuel Sandhu Glucose [Mass/Vol] 79 mg/dL Normal 74-106 [facility] Comment on above: Performed By: #### I NFLUAB #### [facility] [address] [place] [address] Dr. Manuel Sandhu Potassium [Moles/Vol] 3.5 mmol/L Normal 3.5-5.1 [facility] [place] Comment on above: Performed By: #### I NFLUAB #### [facility] [address] [place] [address] Dr. Manuel Sandhu Protein [Mass/Vol] 7.4 g/dL Normal 6.4-8.2 [facility] Comment on above: Performed By: #### I NFLUAB #### [facility] [address] [place] [address] Dr. Manuel Sandhu Sodium [Moles/Vol] 143 mmol/L Normal 136-145 [facility] Comment on above: Performed By: #### I NFLUAB #### [facility] [address] [address] [address] Manuel Sandhu Urea nitrogen [Mass/Vol] 18.0 mg/dL Normal 7.0-18.0 [facility] [place] Comment on above: Performed By: #### I NFLUAB #### [facility] [address] [place] [address] Dr. Manuel Sandhu Urea nitrogen/Creatinine [Mass ratio] 26.1 mg/mg Normal [facility] [place] Comment on above: Performed By: #### I NFLUAB #### [facility] [address] [place] [address] Dr. Manuel Sandhu AMYLASEon 11-16-2021 Amylase [Catalytic activity/Vol] 60 U/L Normal 31-[address] [facility] Comment on above: Performed By: #### C JENNIE PATRICK LIPA #### [facility] [address] [place] [address] Dr. Manuel Sandhu CBC AUTO DIFFon 11-16-2021 BASO # 0.1 103/ul Normal 0.0-0.1 [facility] [place] Comment on above: Performed By: #### C JENNIE PATRICK, LIPA #### [facility] [address] [place] [address] Dr. Manuel Sandhu Basophils/100 WBC (Bld) 0.5 % Normal 0.2-2.0 [facility] [place] Comment on above: Performed By: #### C CELINA JENNIE, LIPA #### [facility] [address] [place] [address] Dr. Manuel Sandhu EO # 0.3 103/ul Normal 0.0-0.7 [facility] [place] Comment on above: Performed By: #### C CELINA JENNIE, LIPA #### [facility] [address] [place] [address] Dr. Manuel Sandhu Eosinophils/100 WBC (Bld) 3.1 % Normal 0.9-7.0 [facility] [place] Comment on above: Performed By: #### C JENNIE PATRICK, LIPA #### [facility] [address] [place] [address] Dr. Manuel Sandhu Erythrocyte distribution width (RBC) [Ratio] 13.4 % Normal 11.0-15.[address] [facility] Comment on above: Performed By: #### C JENNIE PATRICK, LIPA #### [facility] [address] [place] [address] Dr. Manuel Sandhu Hematocrit (Bld) [Volume fraction] 39.0 % Normal 36.0-48.[address] [facility] Comment on above: Performed By: #### C MP, JENNIE, LIPA #### [facility] [address] [place] [address] Dr. Manuel Sandhu Hemoglobin (Bld) [Mass/Vol] 12.8 g/dL Normal 12.0-16.0 [facility] [place] Comment on above: Performed By: #### C MP, JENNIE, LIPA #### [facility] [address] [place] [address] Dr. Manuel Sandhu IG # 0.03 10e3/ul Normal 0.00-0.03 [facility] [place] Comment on above: Performed By: #### C MP, JENNIE, LIPA #### [facility] [address] [place] [address] Dr. Manuel Sandhu IG % 0.3 % Normal 0.0-0.5 [facility] [place] Comment on above: Performed By: #### C MP, JENNIE, LIPA #### [facility] [address] [place] [address] Dr. Manuel Sandhu LYMPH # 2.8 103/ul Normal 1.2-3.8 [facility] [place] Comment on above: Performed By: #### C MP JENNIE, LIPA #### [facility] [address] [place] [address] Dr. Manuel Sandhu Lymphocytes/100 WBC (Bld) 29.9 % Normal 20.5-60.0 [facility] [place] Comment on above: Performed By: #### C CELINA JENNIE, LIPA #### [facility] [address] [place] [address] Dr. Manuel Sandhu MANUAL DIFF REQ NO Normal [facility] Comment on above: Performed By: #### C MP, JENNIE, LIPA #### [facility] [address] [place] [address] Dr. Manuel Sandhu MCH (RBC) [Entitic mass] 32.2 pg Normal 26.7-34.0 [facility] [place] Comment on above: Performed By: #### C MP, JENNIE, LIPA #### [facility] [address] [place] [address] Dr. Manuel Sandhu MCHC (RBC) [Mass/Vol] 32.8 g/dL Normal 29.9-35.[address] [facility] Comment on above: Performed By: #### C JENNIE PATRICK LIPA #### [facility] [address] [place] [address] Dr. Manuel Sandhu MCV (RBC) [Entitic vol] 98.0 fL Normal 81.0-99.[address] [facility] Comment on above: Performed By: #### C JENNIE PATRICK LIPA #### [facility] [address] [place] [address] Dr. Manuel Sandhu MONO # 0.7 103/ul Normal 0.3-0.[address] [facility] Comment on above: Performed By: #### C JENNIE PATRICK LIPA #### [facility] [address] [place] [address] Dr. Manuel Sandhu Monocytes/100 WBC (Bld) 7.7 % Normal 1.7-12.0 [facility] [place] Comment on above: Performed By: #### C JENNIE PATRICK LIPA #### [facility] [address] [place] [address] Dr. Manuel Sandhu NEUT # 5.5 103/ul Normal 1.4-6.[address] [facility] Comment on above: Performed By: #### C JENNIE PATRICK LIPA #### [facility] [address] [place] [address] Dr. Manuel Sandhu Neutrophils/100 WBC (Bld) 58.5 % Normal 43.0-75.[address] [facility] Comment on above: Performed By: #### C JENNIE PATRICK LIPA #### [facility] [address] [place] [address] Dr. Manuel Sandhu Platelet mean volume (Bld) [Entitic vol] 11.7 fL Normal 9.5-13.[address] [facility] Comment on above: Performed By: #### C JENNIE PATRICK LIPA #### [facility] [address] [place] [address] Dr. Manuel Sandhu PLT 301 103/ul Normal 150-[address] [facility] Comment on above: Performed By: #### C JENNIE PATRICK LIPA #### [facility] [address] [place], [place] [address] Dr. Manuel Sandhu RBC 3.98 106/ul Critically low 4.20-5.40 [facility] Comment on above: Performed By: #### C JENNIE PATRICK, LIPA #### [facility] [address] [place], [place] [address] Dr. Manuel Sandhu WBC 9.3 103/ul Normal 4.0-11.[address] [facility] Comment on above: Performed By: #### C JENNIE PATRICK, LIPA #### [facility] [address] [place], [place] [address] ABD/PELVIS WO CONon [...] HARMONY HARRELL Date: 2021-11-16 19:[address] [facility] ER URINE PROFILEon 2 Bilirubin Ql (U) Negative Normal NEGATIVE [facility] Comment on above: Performed By: #### C JENNIE PATRICK LIPA #### [facility] [address] [place] [address] Dr. Manuel Sandhu Clarity (U) CLEAR Normal CLEAR [facility] [place] Comment on above: Performed By: #### C CELINA JENNIE, LIPA #### [facility] [address] [place] [address] Dr. Manuel Sandhu Color (U) LT. YELLOW Normal YELLOW [facility] [place] Comment on above: Performed By: #### C MP JENNIE, LIPA #### [facility] [address] [place] [address] Dr. Manuel Sandhu ERUANAD A micrscopic examina tion will be performed if indicated. Normal [facility] Comment on above: Performed By: #### C MP JENNIE, LIPA #### [facility] [address] [place] [address] Dr. Manuel Sandhu Glucose Ql (U) Negative Normal NEGATIVE [facility] Comment on above: Performed By: #### C MP, JENNIE, LIPA #### [facility] [address] [address] [address] Manuel Sandhu Hemoglobin Ql (U) Negative Normal NEGATIVE [facility] Comment on above: Performed By: #### C MP, JENNIE, LIPA #### [facility] [address] [address] [address] Manuel Sandhu Ketones Ql (U) Negative Normal NEGATIVE [facility] Comment on above: Performed By: #### C MP, JENNIE, LIPA #### [facility] [address] [address] [address] Manuel Sandhu LEUKOCYTES Negative Normal NEGATIVE [facility] [place] Comment on above: Performed By: #### C MP, JENNIE, LIPA #### [facility] [address] [place] [address] Dr. Manuel Sandhu Nitrite Ql (U) Negative Normal NEGATIVE [facility] Comment on above: Performed By: #### C MP, JENNIE, LIPA #### [facility] [address] [place] [address] Dr. Manuel Sandhu pH (U) 7.0 [pH] Normal 5-9 [facility] [place] Comment on above: Performed By: #### C MP, JENNIE, LIPA #### [facility] [address] [place] [address] Dr. Manuel Sandhu SPEC GRAVITY <=1.005 Abnormal 1.005-<=1.02 5 [facility] [place] Comment on above: Performed By: #### C MP, JENNIE, LIPA #### [facility] [address] [place] [address] Dr. Manuel Sandhu UA PROTEIN Negative Normal NEGATIVE/ TRACE [facility] Comment on above: Performed By: #### C MP, JENNIE, LIPA #### [facility] [address] [place] [address] Dr. Manuel Sandhu UR MICRO IND NOT INDICATED Normal [facility] Comment on above: Performed By: #### C MP, JENNIE, LIPA #### [facility] [address] [place] [address] Dr. Manuel Sandhu Urobilinogen Qn (U) 0.2 {Lucila'U}/dL Normal 0.2 - 1. 0 [facility] [place] Comment on above: Performed By: #### C MP, JENNIE, LIPA #### [facility] [address] [place] [address] Dr. Manuel Sandhu LIPASEon 11-16-2021 Lipase [Catalytic activity/Vol] 78.0 U/L Normal 23.0-300.0 [facility] [place] Comment on above: Performed By: #### C MP, JENNIE, LIPA #### [facility] [address] [place] [address] Dr. Manuel Sandhu URon 11-16-2021 , QUAL Negative Normal NEGATIVE [facility] Comment on above: Performed By: #### C MP, JENNIE, LIPA #### [facility] [address] [place] [address] Dr. Manuel Sandhu PROF 14(COMP METB)on 022 Albumin [Mass/Vol] 4.1 g/dL Normal 3.5-5.0 [facility] Comment on above: Performed By: #### C MP JENNIE, LIPA #### [facility] [address] [place] [address] Dr. Manuel Sandhu Albumin/Globulin [Mass ratio] 1.1 {ratio} Normal [facility] [place] Comment on above: Performed By: #### C MP, JENNIE, LIPA #### [facility] [address] [place] [address] Dr. Manuel Sandhu ALP [Catalytic activity/Vol] 102 U/L Normal 38-[address] [facility] Comment on above: Performed By: #### C MP, JENNIE, LIPA #### [facility] [address] [place] [address] Dr. Manuel Sandhu ALT [Catalytic activity/Vol] 39 U/L Normal 9-52 [facility] [place] Comment on above: Performed By: #### C MP, JENNIE, LIPA #### [facility] [address] [place] [address] Dr. Manuel Sandhu Anion gap [Moles/Vol] 11.5 mmol/L Normal [facility] e [facility] Comment on above: Performed By: #### C JENNIE PATRICK LIPA #### [facility] [address] [place] [address] Dr. Manuel Sandhu AST [Catalytic activity/Vol] 28 U/L Normal 14-36 [facility] [place] Comment on above: Performed By: #### C JENNIE PATRICK LIPA #### [facility] [address] [place] [address] Dr. Manuel Sandhu Bilirubin [Mass/Vol] 0.2 mg/dL Normal 0.2-1.[address] [facility] Comment on above: Performed By: #### C JENNIE PATRICK LIPA #### [facility] [address] [place] [address] Dr. Manuel Sandhu Calcium [Mass/Vol] 9.1 mg/dL Normal 8.4-10.2 [facility] Comment on above: Performed By: #### C JENNIE PATRICK LIPA #### [facility] [address] [place] [address] Dr. Manuel Sandhu Chloride [Moles/Vol] 105 mmol/L Normal 98-[address] [facility] Comment on above: Performed By: #### C JENNIE PATRICK LIPA #### [facility] [address] [place] [address] Dr. Manuel Sandhu CO2 [Moles/Vol] 25.0 mmol/L Normal 22.0-30.0 [facility] Comment on above: Performed By: #### C JENNIE PATRICK LIPA #### [facility] [address] [place] [address] Dr. Manuel Sandhu Creatinine [Mass/Vol] 0.77 mg/dL Normal 0.52-1.[address] [facility] Comment on above: Performed By: #### C JENNIE PATRICK LIPA #### [facility] [address] [place] [address] Dr. Manuel Sandhu EGFR-AF IRAQI >60 Normal >=60 [facility] Comment on above: Performed By: #### C JENNIE PATRICK, LIPA #### [facility] [address] [address] [address] Manuel Sandhu EGFR-NON AF IRAQI >60 Normal >=[address] [facility] Comment on above: Performed By: #### C JENNIE PATRICK LIPA #### [facility] [address] [address] [address] Manuel Sandhu Globulin (S) [Mass/Vol] 3.8 g/dL Normal [facility] [place] Comment on above: Performed By: #### C JENNIE PATRICK LIPA #### [facility] [address] [place] [address] Dr. Manuel Sandhu Glucose [Mass/Vol] 85 mg/dL Normal 74-106 [facility] Comment on above: Performed By: #### C JENNIE PATRICK LIPA #### [facility] [address] [place] [address] Dr. Manuel Sandhu Potassium [Moles/Vol] 3.5 mmol/L Normal 3.4-5.[address] [facility] Comment on above: Performed By: #### C JENNIE PATRICK LIPA #### [facility] [address] [place] [address] Dr. Manuel Sandhu Protein [Mass/Vol] 7.9 g/dL Normal 6.1-8.2 [facility] Comment on above: Performed By: #### C JENNIE PATRICK LIPA #### [facility] [address] [place] [address] Dr. Manuel Sandhu Sodium [Moles/Vol] 138 mmol/L Normal 137-145 [facility] Comment on above: Performed By: #### C JENNIE PATRICK, LIPA #### [facility] [address] [place] [address] Dr. Manuel Sandhu Urea nitrogen [Mass/Vol] 18.0 mg/dL Critically high 7.0-17.0 [facility] [place] Comment on above: Performed By: #### C JENNIE PATRICK, LIPA #### [facility] [address] [place] [address] Dr. Manuel Sandhu Urea nitrogen/Creatinine [Mass ratio] 23.4 mg/mg Normal [facility] Comment on above: Performed By: #### C JENNIE PATRICK LIPA #### [facility] [address] [address] ABDOMEN PELVIS W [...] in the pelvis, which could be physiologic. [employer] Work Phone: EXAMINATION: CT OF T HE [...] grade 1 anterolisthesis at L5-S1 is unchanged. [employer] Phone: Dario, [facility] Incoming Radiant Results From [employer] - 02/04/2021 4:32 PM EDT EXAMINATION: CT [...] in the pelvis, which could be physiologic. [employer] Phone: [employer] Phone: Basic Metabolic Panel w/ Ref brannon to MGOrdered By: Ruiz Joel on 02-01-2021 Anion gap [Moles/Vol] 15 mmol/L 9 - 17 mmol/L [employer] Phone: Calcium [Mass/Vol] 8.5 mg/dL Low 8.6 - 10. 4 mg/dL [employer] Phone: Chloride [Moles/Vol] 107 mmol/L 98 - 10 7 mmol/L [employer] Phone: CO2 [Moles/Vol] 16 mmol/L Low 20 - 31 mmol/L [employer] Phone: Creatinine [Mass/Vol] 0.36 mg/dL Low 0.50 - 0.90 mg/dL [employer] Phone: GFR >60 >60 mL/min [employer] Phone: GFR Non- >60 >60 mL/min [employer] Phone: GFR/1.73 sq M.predicted MDRD (S/P/Bld) [Vol rate/Area] [employer] Phone: Comment on above: Average GFR for 30-3 9 years old: 107 mL/min/1.73sq m Chronic Kidney Disease: <60 mL/min/1.73sq m Kidney failure: <15 mL/min/1.73sq m eGFR calculated using average adult body mass. Additional eGFR calculator available at: http://www.[employer]/multiple_crcl_2012.htm GFR/1.73 sq M.predicted MDRD (S/P/Bld) [Vol rate/Area] NOT REPORTED [employer] Phone: Glucose [Mass/Vol] 79 mg/dL 70 - 99 mg/dL [employer] Phone: Interpretation and review of laboratory results Abnormal [employer] Phone: Potassium [Moles/Vol] 3.7 mmol/L 3.7 - 5.3 mmol/L [employer] Phone: Sodium [Moles/Vol] 138 mmol/L 135 - 144 mmol/L [employer] Phone: Urea nitrogen (BldV) [Mass/Vol] 2 mg/dL Low 6 - 20 mg/dL [employer] Phone: Urea nitrogen/Creatinine (Bld) [Mass ratio] NOT REPORTED [employer] Phone: [employer] Phone: CBC WITH AUTO DIFFERENTIALOr dered By: Ruiz Joel on 02-01-2021 [employer] # 0.28 [facility] Work Phone: [employer] Immature Granulocyte 0.06 [employer] Work Phone: [employer] Lymph # 1.62 [employer] [facility] Work Phone: [employer] [place] # 1.46 [employer] Work Phone: Basophils (Bld) [#/Vol] 0.04 10*3/uL [employer] Work Phone: Basophils/100 WBC (Bld) 0 % 0 - 2 % [employer] Work Phone: Differential Type NOT REPORTED [employer] [employer] Phone: Eosinophils/100 WBC (Bld) 3 % 1 - 4 % [employer] Phone: Hematocrit (Bld) [Volume fraction] 33.7 % Low 36.3 - 47.1 % [employer] Work Phone: Hemoglobin.gastrointe stinal spec 1 Ql (Stl) 10.3 g/dL Low 11.9 - 15.1 g/dL [employer] Phone: Immature granulocytes/100 WBC (Bld) 1 % High 0 [employer] Phone: Interpretation and review of laboratory results Abnormal [employer] Phone: Lymphocytes/100 WBC (Bld) 14 % Low 24 - 43 % [employer] Phone: MCH (RBC) [Entitic mass] 29.9 pg 25.2 - 33.5 pg [employer] Phone: MCHC (RBC) [Mass/Vol] 30.6 g/dL 28.4 - 34.8 g/dL [employer] Phone: MCV (RBC) [Entitic vol] 98.0 fL 82.6 - 102.9 fL [employer] Work Phone: Monocytes/100 WBC (Bld) 13 % High 3 - 12 % [employer] Work Phone: NRBC Automated 0.0 0.0 per 100 WBC [employer] Phone: Platelet distribution width (Bld) [Ratio] 13.4 % 11.8 - 14.4 % [employer] Phone: Platelet Estimate NOT REPORTED [employer] Phone: Platelet mean volume (Bld) [Entitic vol] 11.6 fL 8.1 - 13.5 fL [employer] Phone: Platelets (Bld) [#/Vol] 392 10*3/uL [employer] Phone: RBC (Bld) [#/Vol] 3.44 10*6/uL Low 3.95 - 5.1 1 m/uL [employer] Work Phone: RBC (Bld) [#/Vol] NOT REPORTED [employer] Phone: Segmented neutrophils/100 WBC (Bld) 69 % High 36 - 65 % [employer] Phone: Segs Absolute 7.88 [facility] Work Phone: WBC (Bld) [#/Vol] 11.3 10*3/uL [employer] Work Phone: WBC (Bld) [#/Vol] NOT REPORTED [employer] Phone: [employer] Work Phone: Basic Metabolic Panel w/ Ref brannon to MGOrdered By: Nicolasa Le on 01-31-2021 Anion gap [Moles/Vol] 17 mmol/L 9 - 17 mmol/L [employer] Phone: Calcium [Mass/Vol] 8.7 mg/dL 8.6 - 10. 4 mg/dL [employer] Work Phone: Chloride [Moles/Vol] 105 mmol/L 98 - 10 7 mmol/L [employer] Phone: CO2 [Moles/Vol] 15 mmol/L Low 20 - 31 mmol/L [employer] Phone: Creatinine [Mass/Vol] 0.36 mg/dL Low 0.50 - 0.90 mg/dL [employer] Phone: GFR >60 >60 mL/min [employer] Phone: GFR Non- >60 >60 mL/min [employer] Phone: GFR/1.73 sq M.predicted MDRD (S/P/Bld) [Vol rate/Area] [employer] Phone: Comment on above: Average GFR for 30-3 9 years old: 107 mL/min/1.73sq m Chronic Kidney Disease: <60 mL/min/1.73sq m Kidney failure: <15 mL/min/1.73sq m eGFR calculated using average adult body mass. Additional eGFR calculator available at: http://www.[employer]/multiple_crcl_2012.htm GFR/1.73 sq M.predicted MDRD (S/P/Bld) [Vol rate/Area] NOT REPORTED [employer] Phone: Glucose [Mass/Vol] 78 mg/dL 70 - 99 mg/dL [employer] Phone: Interpretation and review of laboratory results Abnormal [employer] Phone: Potassium [Moles/Vol] 3.8 mmol/L 3.7 - 5.3 mmol/L [employer] Phone: Sodium [Moles/Vol] 137 mmol/L 135 - 144 mmol/L [employer] Phone: Urea nitrogen (BldV) [Mass/Vol] 3 mg/dL Low 6 - 20 mg/dL [employer] Phone: Urea nitrogen/Creatinine (Bld) [Mass ratio] NOT REPORTED [employer] Work Phone: [employer] Work Phone: CBC auto differentialOrdered By: Nicolasa Le on 01-31-2021 [facility] Eos # 0.30 [facility] Work Phone: Absolute Immature Granulocyte 0.15 [employer] Work Phone: Absolute Lymph # 2.10 [employer] [facility] Work Phone: Absolute [place] # 2.25 High [employer] [facility] Work Phone: Basophils (Bld) [#/Vol] 0.00 10*3/uL [employer] Work Phone: Basophils/100 WBC (Bld) 0 % 0 - 2 % [employer] Work Phone: Differential Type NOT REPORTED [employer] Work Phone: Eosinophils/100 WBC (Bld) 2 % 1 - 4 % [employer] Work Phone: Hematocrit (Bld) [Volume fraction] 35.7 % Low 36.3 - 47.1 % [employer] Phone: Hemoglobin.gastrointe stinal spec 1 Ql (Stl) 10.8 g/dL Low 11.9 - 15.1 g/dL [employer] Work Phone: Immature granulocytes/100 WBC (Bld) 1 % High 0 [employer] Work Phone: Interpretation and review of laboratory results Abnormal [employer] Phone: Lymphocytes/100 WBC (Bld) 14 % Low 24 - 43 % [employer] Work Phone: MCH (RBC) [Entitic mass] 29.9 pg 25.2 - 33.5 pg [employer] Work Phone: MCHC (RBC) [Mass/Vol] 30.3 g/dL 28.4 - 34.8 g/dL [employer] Phone: MCV (RBC) [Entitic vol] 98.9 fL 82.6 - 102.9 fL [employer] Phone: Monocytes/100 WBC (Bld) 15 % High 3 - 12 % [employer] Phone: Morphology Celso (Bld) [Interp] Normal [employer] Phone: NRBC Automated 0.0 0.0 per 100 WBC [employer] Phone: Platelet distribution width (Bld) [Ratio] 13.5 % 11.8 - 14.4 % [employer] Phone: Platelet Estimate NOT REPORTED [employer] Phone: Platelet mean volume (Bld) [Entitic vol] 11.6 fL 8.1 - 13.5 fL [employer] Phone: Platelets (Bld) [#/Vol] 375 10*3/uL [employer] Phone: RBC (Bld) [#/Vol] 3.61 10*6/uL Low 3.95 - 5.1 1 m/uL [employer] Phone: RBC (Bld) [#/Vol] NOT REPORTED [employer] Phone: Segmented neutrophils/100 WBC (Bld) 68 % High 36 - 65 % [employer] Phone: Segs Absolute 10.20 High [facility] Work Phone: WBC (Bld) [#/Vol] 15.0 10*3/uL High [employer] Work Phone: WBC (Bld) [#/Vol] NOT REPORTED [employer] Phone: [employer] Work Phone: CBC Auto DifferentialOrdered By: David Nash on 01-30-2021 Absolute Eos # 0.21 [facility] Work Phone: Absolute Immature Granulocyte 0.04 [employer] Work Phone: Absolute Lymph # 1.88 [employer] [facility] Work Phone: Absolute [place] # 1.43 High [facility] Work Phone: Basophils (Bld) [#/Vol] 0.04 10*3/uL [employer] Work Phone: Basophils/100 WBC (Bld) 0 % 0 - 2 % [employer] Work Phone: Differential Type NOT REPORTED [employer] Work Phone: Eosinophils/100 WBC (Bld) 2 % 1 - 4 % [employer] Phone: Hematocrit (Bld) [Volume fraction] 36.2 % Low 36.3 - 47.1 % [employer] Work Phone: Hemoglobin.gastrointe stinal spec 1 Ql (Stl) 11.7 g/dL Low 11.9 - 15.1 g/dL [employer] Phone: Immature granulocytes/100 WBC (Bld) 0 % 0 [employer] Phone: Interpretation and review of laboratory results Abnormal [employer] Phone: Lymphocytes/100 WBC (Bld) 15 % Low 24 - 43 % [employer] Work Phone: MCH (RBC) [Entitic mass] 30.3 pg 25.2 - 33.5 pg [employer] Phone: MCHC (RBC) [Mass/Vol] 32.3 g/dL 28.4 - 34.8 g/dL [employer] Phone: MCV (RBC) [Entitic vol] 93.8 fL 82.6 - 102.9 fL [employer] Work Phone: Monocytes/100 WBC (Bld) 12 % 3 - 12 % [employer] Work Phone: NRBC Automated 0.0 0.0 per 100 WBC [employer] Phone: Platelet distribution width (Bld) [Ratio] 13.2 % 11.8 - 14.4 % [employer] Phone: Platelet Estimate NOT REPORTED [employer] Phone: Platelet mean volume (Bld) [Entitic vol] 11.6 fL 8.1 - 13.5 fL [employer] Phone: Platelets (Bld) [#/Vol] 414 10*3/uL [employer] Phone: RBC (Bld) [#/Vol] 3.86 10*6/uL Low 3.95 - 5.1 1 m/uL [employer] Phone: RBC (Bld) [#/Vol] NOT REPORTED [employer] Phone: Segmented neutrophils/100 WBC (Bld) 71 % High 36 - 65 % [employer] Work Phone: Segs Absolute 8.75 High [facility] Work Phone: WBC (Bld) [#/Vol] 12.4 10*3/uL High [employer] Work Phone: WBC (Bld) [#/Vol] NOT REPORTED [employer] Phone: [employer] Work Phone: CT ABDOMEN PELVIS W IV [...] anterolisthesis and marked decrease in disc height. [employer] Phone: EXAMINATION: CT OF T HE ABDOMEN [...] height was noted at the L5-S1 disc. [employer] Phone: Dario, Mhpn Incoming Radiant Results From [employer] - 01/30/2021 12:20 PM EDT EXAMINATION: CT [...] anterolisthesis and marked decrease in disc height. [employer] Phone: [employer] Phone: Comprehensive Metabolic Pane l w/ Reflex to MGOrdered By: David Nash on 01-30-2021 Albumin [Mass/Vol] 3.6 g/dL 3.5 - 5.2 g/dL [employer] Phone: Albumin/Globulin [Mass ratio] 1.0 {ratio} [employer] Phone: ALP (Bld) [Catalytic activity/Vol] 107 U/L High 35 - 104 U/L [employer] Phone: ALT [Catalytic activity/Vol] 33 U/L 5 - 33 U/L [employer] Phone: Anion gap [Moles/Vol] 17 mmol/L 9 - 17 mmol/L [employer] Phone: AST [Catalytic activity/Vol] 26 U/L <32 [employer] Phone: Bilirubin [Mass/Vol] 0.25 mg/dL Low 0.3 - 1 .2 mg/dL [employer] Phone: Calcium [Mass/Vol] 9.5 mg/dL 8.6 - 10. 4 mg/dL [employer] Phone: Chloride [Moles/Vol] 104 mmol/L 98 - 10 7 mmol/L [employer] Phone: CO2 [Moles/Vol] 19 mmol/L Low 20 - 31 mmol/L [employer] Phone: Creatinine [Mass/Vol] 0.47 mg/dL Low 0.50 - 0.90 mg/dL [employer] Phone: Free PSA/Total PSA [Mass fraction] 7.3 g/dL 6.4 - 8.3 g/dL [employer] Phone: GFR >60 >60 mL/min [employer] Phone: GFR Non- >60 >60 mL/min [employer] Phone: Glucose [Mass/Vol] 79 mg/dL 70 - 99 mg/dL [employer] Phone: Interpretation and review of laboratory results Abnormal [employer] Phone: Potassium [Moles/Vol] 3.8 mmol/L 3.7 - 5.3 mmol/L [employer] Phone: Sodium [Moles/Vol] 140 mmol/L 135 - 144 mmol/L [employer] Phone: Urea nitrogen (BldV) [Mass/Vol] 5 mg/dL Low 6 - 20 mg/dL [employer] Phone: Urea nitrogen/Creatinine (Bld) [Mass ratio] 11 [employer] Phone: HCG Qualitative, SerumOrdere d By: Noreenfallon Mckeon on 01-30-2021 hCG Qual Negative NEGATIVE [employer] Phone: Comment on above: Specimens with hCG l evels near the threshold of the test (25 mIU/mL) may give a negative or indeterminate result. In such cases, another test should be performed with a new specimen in 48-72 hours. If early is suspected clinically in this setting, correlation with quantitative serum b-hCG level is suggested. [employer] has confirmed the use of plasma for this test. This has not been cleared or approved by the U.S. Food and Drug Administration. The FDA has determined that such clearance is not necessary. [employer] Phone: Laboratory - Chemistry and C hemistry - challengeOrdered By: David Nash on 01-30-2021 GFR/1.73 sq M.predicted MDRD (S/P/Bld) [Vol rate/Area] [employer] Phone: Comment on above: Average GFR for 30-3 9 years old: 107 mL/min/1.73sq m Chronic Kidney Disease: <60 mL/min/1.73sq m Kidney failure: <15 mL/min/1.73sq m eGFR calculated using average adult body mass. Additional eGFR calculator available at: http://www.[employer]/multiple_crcl_2012.htm Stage 1: Some kidney damage normal GFR Stage 2: Mild kidney damage GFR 60-89 Stage 3: Moderate kidney damage GFR 30-59 Stage 4: Severe kidney damage GFR 15-29 Stage 5: Severe kidney damage GFR <15 ESRD - chronic treatment by dialysis or transplant Lactic AcidOrdered By: Beatriz Nash on 01-30-2021 Lactate [Moles/Vol] 0.6 mmol/L 0.5 - 2. 2 mmol/L [facility] [employer] Work Phone: [facility] Work Phone: LipaseOrdered By: David dalton on 01-30-2021 Lipase [Catalytic activity/Vol] 30 U/L 13 - 60 U/L [facility] [employer] Work Phone: Microscopic UrinalysisOrdere d By: David Nash on 01-30-2021 - [facility] Work Phone: Amorphous, UA NOT REPORTED None [facility] Work Phone: Bacteria, UA TRACE Abnormal None [facility] Work Phone: Casts UA NOT REPORTED /LPF [facility] Work Phone: Crystals, UA NOT REPORTED None /HPF [facility] Work Phone: Epithelial Cells UA 2 TO 5 [facility] Work Phone: Interpretation and review of laboratory results Abnormal [facility] Work Phone: Mucus, UA NOT REPORTED None [facility] Work Phone: Other Observations UA NOT REPORTED NOT REQ. M [facility] Work Phone: RBC, UA 0 TO 2 [facility] Work Phone: Renal Epithelial, UA NOT REPORTED 0 /HPF [facility] Work Phone: Trichomonas, UA NOT REPORTED None [facility] Work Phone: WBC, UA 2 TO 5 [facility] Work Phone: Yeast, UA NOT REPORTED None [facility] Work Phone: [facility] Work Phone: No Panel InformationOrdered By: David Nash on 01-30-2021 [facility] [employer] Work Phone: Protime-INROrdered By: Linda Mckeon on 01-30-2021 INR Coag (Bld) [Relative time] 1.1 {INR} [facility] [employer] Work Phone: Comment on above: Therapeutic Range: Moderate Anticoagulant Intensity: INR = 2.0-3.0 High Anticoagulant Intensity: INR = 2.5-3.5 PT Coag (PPP) [Time] 11.4 s [facility] [employer] Work Phone: [facility] [employer] Work Phone: Urinalysis, reflex to micros copicOrdered By: David Nash on 01-30-2021 Bilirubin Urine SMALL Abnormal NEGATIVE [facility] Work Phone: Color, UA YELLOW YELLOW [facility] [employer] Work Phone: Glucose, Ur Negative NEGATIVE [facility] [employer] Work Phone: Interpretation and review of laboratory results Abnormal [facility] [employer] Work Phone: Ketones Ql (U) 4+ Abnormal NEGATIVE [facility] Work Phone: Leukocyte esterase Test strip Ql (U) Negative NEGATIVE [facility] [employer] Work Phone: Nitrite, Urine Negative NEGATIVE [facility] Work Phone: pH, UA 5.5 [facility] [employer] Work Phone: Protein, UA Negative NEGATIVE [facility] [employer] Work Phone: Specific [place], UA <1.005 Low [facility] [employer] Work Phone: Turbidity UA CLEAR CLEAR [facility] [employer] Work Phone: Urinalysis Comments NOT REPORTED [facility] [employer] Work Phone: Urine Hgb Negative NEGATIVE [facility] [employer] Work Phone: Urobilinogen, Urine Normal Normal [facility] [employer] Work Phone: [employer] Phone: Basic Metabolic PanelOrdered By: Gamaliel Harris on 01-08-2021 Anion gap [Moles/Vol] 11 mmol/L 9 - 17 mmol/L [employer] Phone: Calcium [Mass/Vol] 9.1 mg/dL 8.6 - 10. 4 mg/dL [employer] Phone: Chloride [Moles/Vol] 105 mmol/L 98 - 10 7 mmol/L [employer] Phone: CO2 [Moles/Vol] 23 mmol/L 20 - 31 mmol/L [employer] Phone: Creatinine [Mass/Vol] 0.57 mg/dL 0.50 - 0.90 mg/dL [employer] Phone: GFR >60 >60 mL/min [employer] Phone: GFR Non- >60 >60 mL/min [employer] Phone: GFR/1.73 sq M.predicted MDRD (S/P/Bld) [Vol rate/Area] [employer] Phone: Comment on above: Average GFR for 30-3 9 years old: 107 mL/min/1.73sq m Chronic Kidney Disease: <60 mL/min/1.73sq m Kidney failure: <15 mL/min/1.73sq m eGFR calculated using average adult body mass. Additional eGFR calculator available at: http://www.[employer]/multiple_crcl_2012.htm GFR/1.73 sq M.predicted MDRD (S/P/Bld) [Vol rate/Area] NOT REPORTED [employer] Phone: Glucose [Mass/Vol] 106 mg/dL High 70 - 99 mg/dL [employer] Phone: Interpretation and review of laboratory results Abnormal [employer] Phone: Potassium [Moles/Vol] 3.7 mmol/L 3.7 - 5.3 mmol/L [employer] Phone: Sodium [Moles/Vol] 139 mmol/L 135 - 144 mmol/L [employer] Phone: Urea nitrogen (BldV) [Mass/Vol] 7 mg/dL 6 - 20 mg/dL [employer] Phone: Urea nitrogen/Creatinine (Bld) [Mass ratio] NOT REPORTED [employer] Phone: CBCOrdered By: Gamaliel castillo on 01-08-2021 Hematocrit (Bld) [Volume fraction] 38.0 % 36.3 - 47.1 % [employer] Phone: Hemoglobin.gastrointe stinal spec 1 Ql (Stl) 12.2 g/dL 11.9 - 15.1 g/dL [employer] Phone: Interpretation and review of laboratory results Abnormal [employer] Phone: MCH (RBC) [Entitic mass] 30.4 pg 25.2 - 33.5 pg [employer] Phone: MCHC (RBC) [Mass/Vol] 32.1 g/dL 28.4 - 34.8 g/dL [employer] Phone: MCV (RBC) [Entitic vol] 94.8 fL 82.6 - 102.9 fL [employer] Phone: NRBC Automated 0.0 0.0 per 100 WBC [employer] Phone: Platelet distribution width (Bld) [Ratio] 13.5 % 11.8 - 14.4 % [employer] Phone: Platelet mean volume (Bld) [Entitic vol] 11.4 fL 8.1 - 13.5 fL [employer] Phone: Platelets (Bld) [#/Vol] 304 10*3/uL [employer] Phone: RBC (Bld) [#/Vol] 4.01 10*6/uL 3.95 - 5.1 1 m/uL [employer] Phone: WBC (Bld) [#/Vol] 18.0 10*3/uL High [employer] Phone: FL ESOPHAGRAMOrdered By: Yadi Harris on 01-08-2021 No evidence of postoperative leak. [employer] Phone: EXAMINATION: SINGLE CONTRAST ESOPHAGRAM 01/08/2021 HISTORY: [...] KUB/radiographs to assess progression as clinically warranted. [employer] Phone: Dario, pn Incoming Radiant Results From [employer] - 01/08/2021 12:29 PM EDT EXAMINATION: SINGLE [...] warranted. IMPRESSION: No evidence of postoperative leak. [employer] Phone: Basic Metabolic PanelOrdered By: Gamaliel Harris on 01-07-2021 Anion gap [Moles/Vol] 10 mmol/L 9 - 17 mmol/L [employer] Phone: Calcium [Mass/Vol] 8.8 mg/dL 8.6 - 10. 4 mg/dL [employer] Phone: Chloride [Moles/Vol] 105 mmol/L 98 - 10 7 mmol/L [employer] Phone: CO2 [Moles/Vol] 20 mmol/L 20 - 31 mmol/L [employer] Phone: Creatinine [Mass/Vol] 0.68 mg/dL 0.50 - 0.90 mg/dL [employer] Phone: GFR >60 >60 mL/min [employer] Phone: GFR Non- >60 >60 mL/min [employer] Phone: GFR/1.73 sq M.predicted MDRD (S/P/Bld) [Vol rate/Area] [employer] Phone: Comment on above: Average GFR for 30-3 9 years old: 107 mL/min/1.73sq m Chronic Kidney Disease: <60 mL/min/1.73sq m Kidney failure: <15 mL/min/1.73sq m eGFR calculated using average adult body mass. Additional eGFR calculator available at: http://www.[employer]/multiple_crcl_2012.htm GFR/1.73 sq M.predicted MDRD (S/P/Bld) [Vol rate/Area] NOT REPORTED [employer] Phone: Glucose [Mass/Vol] 215 mg/dL High 70 - 99 mg/dL [employer] Phone: Interpretation and review of laboratory results Abnormal [employer] Phone: Potassium [Moles/Vol] 4.2 mmol/L 3.7 - 5.3 mmol/L [employer] Phone: Sodium [Moles/Vol] 135 mmol/L 135 - 144 mmol/L [employer] Phone: Urea nitrogen (BldV) [Mass/Vol] 14 mg/dL 6 - 20 mg/dL [employer] Phone: Urea nitrogen/Creatinine (Bld) [Mass ratio] NOT REPORTED [employer] Phone: CBC without DiffOrdered By: Gamaliel Harris on 01-07-2021 Hematocrit (Bld) [Volume fraction] 38.3 % 36.3 - 47.1 % [employer] Phone: Hemoglobin.gastrointe stinal spec 1 Ql (Stl) 12.5 g/dL 11.9 - 15.1 g/dL [employer] Phone: Interpretation and review of laboratory results Abnormal [employer] Phone: MCH (RBC) [Entitic mass] 30.9 pg 25.2 - 33.5 pg [employer] Phone: MCHC (RBC) [Mass/Vol] 32.6 g/dL 28.4 - 34.8 g/dL [employer] Phone: MCV (RBC) [Entitic vol] 94.8 fL 82.6 - 102.9 fL [employer] Phone: NRBC Automated 0.0 0.0 per 100 WBC [employer] Phone: Platelet distribution width (Bld) [Ratio] 13.4 % 11.8 - 14.4 % [employer] Phone: Platelet mean volume (Bld) [Entitic vol] 11.2 fL 8.1 - 13.5 fL [employer] Phone: Platelets (Bld) [#/Vol] 373 10*3/uL [employer] Phone: RBC (Bld) [#/Vol] 4.04 10*6/uL 3.95 - 5.1 1 m/uL [employer] Phone: WBC (Bld) [#/Vol] 24.9 10*3/uL High [employer] Phone: POCT urine pregnancyOrdered By: Gamaliel Harris on 01-07-2021 Beta HCG ( test) Ql (U) Negative NEGATIVE [facility] Phone: Comment on above: Specimens with hCG l evels near the threshold of the test (25 mIU/mL) may give a negative or indeterminate result. In such cases, another test should be performed with a new specimen in 48-72 hours. If early is suspected clinically in this setting, correlation with quantitative serum b-hCG level is suggested. [id number] 01-04-2021 SARS-CoV-2 (COVID-19) RNA JOSÉ MIGUEL+probe Ql (Unsp spec) Normal [facility] Comment on above: Performed By: #### C OVID #### [facility] [address] [place], [place] [id number] Wharf Hand: Wei Reyna MD [facility] [address] [place], [place] [id number] [employer]arf Hand: Harpal Adair MD SARS-CoV-2 (COVID-19) RNA JOSÉ MIGUEL+probe Ql (Unsp spec) Not detected Normal NOTDET [facility] Comment on above: Result Comment: The specimen is NEGATIVE for SARS-CoV-2, the novel coronavirus associated with COVID-19. A negative result does not rule out COVID-19. [employer] SARS-CoV-2 for use on the [employer] is a real-time RT-PCR test intended [...] this assay. Fact sheet for Healthcare Providers: https://www.fda.gov/media/411729/download Fact sheet for Patients: https://www.fda.gov/media/210716/download METHODOLOGY: RT-PCR Performed By: #### C OVID #### [facility] [address] [place] [address] Wharf Hand: Wei Reyna MD [address] [id number] Wharf Hand: Harpal Adair MD [id number] 01-03-2021 SARS-CoV-2 (COVID-19) RNA JOSÉ MIGUEL+probe Ql (Unsp spec) .NASOPHARYNGEAL SWAB Normal [facility] Comment on above: Performed By: #### C OVID #### [facility] [address] [place] [address] Wharf Hand: Wei Reyna MD [address] [address] Wharf Hand: Harpal Adair MD Nicotine, BloodOrdered By: Jose Harris on 12-26-2020 2-VY-Eohrkdio <2 ng/mL [facility] [employer] Work Phone: Cotinine <2 ng/mL [facility] [employer] Work Phone: Nicotine <2 ng/mL [facility] [employer] Work Phone: Comment on above: (NOTE) Consistent [...] developed and its performance characteristics determined by [facility]. It has not been cleared or approved by the US Food and Drug Administration. This test was performed in a CLIA certified laboratory and is intended for clinical purposes. Performed By: [facility] [address] [place] [id number] [employer] Bin Tender: Brissa Bonilla MD EKG 12 LeadOrdered By: Enmanuel Harris on 12-25-2020 Atrial Rate 70 BPM [employer] Phone: P [place] 20 degrees [employer] Phone: P-R Interval 176 ms [employer] Phone: Q-T Interval 414 ms [employer] Phone: QRS Duration 88 ms [employer] Phone: QTc Calculation (Bazett) 447 ms [employer] Phone: R [place] 7 degrees [employer] Phone: T [place] 8 degrees [employer] Phone: Ventricular Rate 70 BPM [employer] Work Phone: Normal sinus rhythm Normal ECG No previous ECGs available [employer] Phone: Dario, Mhpn Incoming E kg Results From [employer] - 12/25/2020 12:47 PM EDT Normal sinus rhythm Normal ECG No previous ECGs available [employer] Phone: APTTOrdered By: Gamaliel horvath on 12-24-2020 aPTT Coag (Bld) [Time] 23.1 s [employer] Phone: Comment on above: IV Heparin Therapy Range: 48.6-77.8 Basic Metabolic PanelOrdered By: Gamaliel Harris on 12-24-2020 Anion gap [Moles/Vol] 10 mmol/L 9 - 17 mmol/L [employer] Phone: Calcium [Mass/Vol] 9.4 mg/dL 8.6 - 10. 4 mg/dL [employer] Phone: Chloride [Moles/Vol] 106 mmol/L 98 - 10 7 mmol/L [employer] Phone: CO2 [Moles/Vol] 23 mmol/L 20 - 31 mmol/L [employer] Phone: Creatinine [Mass/Vol] 0.56 mg/dL 0.50 - 0.90 mg/dL [employer] Phone: GFR >60 >60 mL/min [employer] Phone: GFR Non- >60 >60 mL/min [employer] Phone: GFR/1.73 sq M.predicted MDRD (S/P/Bld) [Vol rate/Area] [employer] Phone: Comment on above: Average GFR for 30-3 9 years old: 107 mL/min/1.73sq m Chronic Kidney Disease: <60 mL/min/1.73sq m Kidney failure: <15 mL/min/1.73sq m eGFR calculated using average adult body mass. Additional eGFR calculator available at: http://www.[employer]/multiple_crcl_2012.htm GFR/1.73 sq M.predicted MDRD (S/P/Bld) [Vol rate/Area] NOT REPORTED [employer] Phone: Glucose [Mass/Vol] 86 mg/dL 70 - 99 mg/dL [employer] Phone: Potassium [Moles/Vol] 3.8 mmol/L 3.7 - 5.3 mmol/L [employer] Phone: Sodium [Moles/Vol] 139 mmol/L 135 - 144 mmol/L [employer] Phone: Urea nitrogen (BldV) [Mass/Vol] 12 mg/dL 6 - 20 mg/dL [employer] Phone: Urea nitrogen/Creatinine (Bld) [Mass ratio] NOT REPORTED [employer] Phone: CBCOrdered By: Gamaliel castillo on 12-24-2020 Hematocrit (Bld) [Volume fraction] 41.2 % 36.3 - 47.1 % [employer] Phone: Hemoglobin.gastrointe stinal spec 1 Ql (Stl) 13.4 g/dL 11.9 - 15.1 g/dL [employer] Phone: MCH (RBC) [Entitic mass] 30.5 pg 25.2 - 33.5 pg [employer] Phone: MCHC (RBC) [Mass/Vol] 32.5 g/dL 28.4 - 34.8 g/dL [employer] Phone: MCV (RBC) [Entitic vol] 93.6 fL 82.6 - 102.9 fL [employer] Phone: NRBC Automated 0.0 0.0 per 100 WBC [employer] Phone: Platelet distribution width (Bld) [Ratio] 13.2 % 11.8 - 14.4 % [employer] Phone: Platelet mean volume (Bld) [Entitic vol] 10.7 fL 8.1 - 13.5 fL [employer] Phone: Platelets (Bld) [#/Vol] 391 10*3/uL [employer] Phone: RBC (Bld) [#/Vol] 4.40 10*6/uL 3.95 - 5.1 1 m/uL [employer] Phone: WBC (Bld) [#/Vol] 8.5 10*3/uL [employer] Phone: Protime-INROrdered By: Enmanuel Harris on 12-24-2020 INR Coag (Bld) [Relative time] 0.9 {INR} [employer] Phone: Comment on above: Therapeutic Range: Moderate Anticoagulant Intensity: INR = 2.0-3.0 High Anticoagulant Intensity: INR = 2.5-3.5 PT Coag (PPP) [Time] 10 s [employer] Phone: XR CHEST (2 VW)on 12-24-2020 No acute cardiopulmo nary findings [employer] Phone: EXAMINATION: TWO XRA Y VIEWS OF THE CHEST 12/24/2020 11:24 am COMPARISON: None. HISTORY: ORDERING SYSTEM PROVIDED HISTORY: preop gastric bypass [employer] TECHNOLOGIST PROVIDED HISTORY: preop gastric bypass Tian [employer] Y Reason for Exam: no chest complaints FINDINGS: Normal cardiopericardial silhouette There are no significant mediastinal, pleural, parenchymal or osseous findings [employer] Phone: Dario, Mhpn Incoming Radiant Results From [facility] - 12/24/2020 11:30 AM EDT EXAMINATION: TWO XRAY VIEWS OF THE CHEST 12/24/2020 11:24 am COMPARISON: None. HISTORY: ORDERING SYSTEM PROVIDED HISTORY: preop gastric bypass [employer] TECHNOLOGIST PROVIDED HISTORY: preop gastric bypass Tian [employer] Reason for Exam: no chest complaints FINDINGS: Normal cardiopericardial silhouette There are no significant mediastinal, pleural, parenchymal or osseous findings IMPRESSION: No acute cardiopulmonary findings [employer] Phone: XR CHEST (2 VW)Ordered By: Jose Harris on 12-24-2020 No acute cardiopulmo nary findings [employer] Phone: EXAMINATION: TWO XRA Y VIEWS OF THE CHEST 12/24/2020 11:24 am COMPARISON: None. HISTORY: ORDERING SYSTEM PROVIDED HISTORY: preop gastric bypass [employer] TECHNOLOGIST PROVIDED HISTORY: preop gastric bypass Tian [employer] Reason for Exam: no chest complaints FINDINGS: Normal cardiopericardial silhouette There are no significant mediastinal, pleural, parenchymal or osseous findings [employer] Phone: Dario, pn Incoming Radiant Results From [facility] - 12/24/2020 11:30 AM EDT EXAMINATION: TWO XRAY VIEWS OF THE CHEST 12/24/2020 11:24 am COMPARISON: None. HISTORY: ORDERING SYSTEM PROVIDED HISTORY: preop gastric bypass [employer] TECHNOLOGIST PROVIDED HISTORY: preop gastric bypass Tian [employer] Reason for Exam: no chest complaints FINDINGS: Normal cardiopericardial silhouette There are no significant mediastinal, pleural, parenchymal or osseous findings IMPRESSION: No acute cardiopulmonary findings [employer] Phone: FL UGI W AIR CONTRASTon 10-15 Intermittent signifi cant spontaneous GE reflux. Otherwise unremarkable double-contrast upper GI and esophagram. [employer] Phone: EXAMINATION: DOUBLE CONTRAST UPPER GI SERIES [...] The duodenal bulb and sweep are normal. [employer] Phone: Dario, pn Incoming Radiant Results From [facility] - 11/01/2020 5:21 PM EST EXAMINATION: DOUBLE [...] Otherwise unremarkable double-contrast upper GI and esophagram. [facility] Work Phone: COVID-19on 09-25-2020 SARS-CoV-2 [place], [place] SARS-CoV-2 Not Detected Not Detected [place], [place] Comment on above: The specimen is NEGATIVE for SARS-CoV-2, the novel coronavirus associated with COVID-19. A negative result does not rule out COVID-19. [employer]ide SARS-CoV-2 for use on the [employer] is a real-time RT-PCR test intended [...] this assay. Fact sheet for Healthcare Providers: https://www.fda.gov/media/003584/download Fact sheet for Patients: https://www.fda.gov/media/220660/download METHODOLOGY: RT-PCR SARS-CoV-2, [place], [place] Source .NASOPHARYNGEAL SWAB [place], [place] Vital Signs Date Time Vital Sign Value Performing Clinician Facility 03-08-2024 15:02-0400 Diastolic blood pressure 78 mm[Hg] Alexis Shukla [facility] 03-08-2024 15:02-0400 Heart rate 65 /min Alexis Vazquez [facility] 03-08-2024 15:02-0400 Mean blood pressure 89 mm[Hg] Alexis Lopeze [facility] 03-08-2024 15:02-0400 SaO2% (BldA) [Mass fraction] 100 % Alexis Lopeze [facility] 03-08-2024 15:02-0400 Systolic blood pressure 110 mm[Hg] Alexis Lopeze [facility] 03-08-2024 14:00-0400 SaO2% (BldA) [Mass fraction] 99 % Alexis Lopeze [facility] 03-08-2024 13:37-0400 Body temperature 98.42 [degF] Alexis Lopeze [facility] 03-08-2024 13:37-0400 Diastolic blood pressure 82 mm[Hg] Alexis Lopeze [facility] 03-08-2024 13:37-0400 Heart rate 70 /min Alexis Lopeze [facility] 03-08-2024 13:37-0400 Respiratory rate 18 /min Alexis Lopeze [facility] 03-08-2024 13:37-0400 SaO2% (BldA) [Mass fraction] 100 % Alexis Lopeze [facility] 03-08-2024 13:37-0400 Systolic blood pressure 126 mm[Hg] Alexis Vazquez [facility] 03-08-2024 13:14-0400 Body temperature 98.24 [degF] Alexis Vazquez [facility] 03-08-2024 13:14-0400 Diastolic blood pressure 87 mm[Hg] Alexis Lopeze [facility] 03-08-2024 13:14-0400 Heart rate 67 /min Alexis Shukla [facility] 03-08-2024 13:14-0400 Respiratory rate 16 /min Alexis Shukla [facility] 03-08-2024 13:14-0400 Systolic blood pressure 135 mm[Hg] Alexis Shukla [facility] 03-08-2024 08:06-0400 Body height 170.2 cm Elia Baires DO Work Phone: [facility] 03-08-2024 08:06-0400 Body mass index (BMI) [Ratio] 30.9 kg/m2 Elia Baires DO Work Phone: [facility] 03-08-2024 08:06-0400 Body weight 89.5 kg Elia Baires DO Work Phone: [facility] 03-08-2024 08:06-0400 Diastolic blood pressure 72 mm[Hg] Elia Baires DO Work Phone: [facility] 03-08-2024 08:06-0400 Heart rate 82 /min Elia Baires DO Work Phone: [facility] 03-08-2024 08:06-0400 SaO2% (BldA) [Mass fraction] 100 % Elia Baires DO Work Phone: [facility] 03-08-2024 08:06-0400 Systolic blood pressure 114 mm[Hg] Elia Baires DO Work Phone: [facility] 01-04-2024 09:28-0400 Body height 170.2 cm Elia Baires DO Work Phone: [facility] 01-04-2024 09:28-0400 Body mass index (BMI) [Ratio] 31.96 kg/m2 Elia Baires DO Work Phone: [facility] 01-04-2024 09:28-0400 Body weight 92.55 kg Elia Baires DO Work Phone: [facility] 01-04-2024 [id number] Diastolic blood pressure 86 mm[Hg] Elia Baires DO Work Phone: [facility] 01-04-2024 09:28-0400 Heart rate 92 /min Elia Baires DO Work Phone: [facility] 01-04-2024 09:28-0400 SaO2% (BldA) [Mass fraction] 97 % Elia Baires DO Work Phone: [facility] 01-04-2024 [id number] Systolic blood pressure 123 mm[Hg] Elia Baires DO Work Phone: [facility] 12-31-2023 11:17-0400 Heart rate 76 /min DO Jennie Ames Work Phone: [facility] 12-31-2023 11:14-0400 Body temperature 98.2 [degF] DO Jennie Ames Work Phone: [facility] 12-31-2023 11:14-0400 Diastolic blood pressure 73 mm[Hg] DO Jennie Ames Work Phone: [facility] 12-31-2023 11:14-0400 Respiratory rate 18 /min DO Jennie Ames Work Phone: [facility] 12-31-2023 11:14-0400 SaO2% (BldA) [Mass fraction] 97 % DO Jennie Ames Work Phone: [facility] 12-31-2023 11:14-0400 Systolic blood pressure 138 mm[Hg] DO Jennie Ames Work Phone: [facility] 12-31-2023 11:13-0400 Body height 170.18 cm DO Jennie Ames Work Phone: [facility] 12-31-2023 11:13-0400 Body weight 89.35 kg DO Jennie Ames Work Phone: [facility] 12-24-2023 11:58-0400 Body height 170.18 cm DO Jennie Ames Work Phone: [facility] 12-24-2023 11:58-0400 Body temperature 97.8 [degF] DO Jennie Ames Work Phone: [facility] 12-24-2023 11:58-0400 Body weight 89 kg DO Jennie Ames Work Phone: [facility] 12-24-2023 11:58-0400 Diastolic blood pressure 91 mm[Hg] DO Jennie Ames Work Phone: [facility] 12-24-2023 11:58-0400 Heart rate 85 /min DO Jennie Ames Work Phone: [facility] 12-24-2023 11:58-0400 Respiratory rate 15 /min DO Jennie Ames Work Phone: [facility] 12-24-2023 11:58-0400 SaO2% (BldA) [Mass fraction] 100 % DO Jennie Ames Work Phone: [facility] 12-24-2023 11:58-0400 Systolic blood pressure 137 mm[Hg] DO Jennie Ames Work Phone: [facility] 12-10-2023 12:35-0400 Heart rate 70 /min DO Jennie Ames Work Phone: [facility] 12-10-2023 12:35-0400 Respiratory rate 16 /min DO Jennie Ames Work Phone: [facility] 12-10-2023 12:35-0400 SaO2% (BldA) [Mass fraction] 98 % DO Jennie Ames Work Phone: [facility] 12-10-2023 12:08-0400 Body height 170.18 cm DO Jennie Ames Work Phone: [facility] 12-10-2023 12:08-0400 Body temperature 98 [degF] DO Jennie Ames Work Phone: [facility] 12-10-2023 12:08-0400 Body weight 89.8 kg DO Jennie Ames Work Phone: [facility] 12-10-2023 12:08-0400 Diastolic blood pressure 76 mm[Hg] DO Jennie Ames Work Phone: [facility] 12-10-2023 12:08-0400 Systolic blood pressure 123 mm[Hg] DO Jennie Ames Work Phone: [facility] 09-18-2023 08:49-0500 Diastolic blood pressure 72 mm[Hg] Gamaliel Harris DO Work Phone: [employer] 09-18-2023 08:49-0500 Heart rate 58 /min Gamaliel Harris DO Work Phone: [facility] [employer] 09-18-2023 08:49-0500 Respiratory rate 18 /min Gamaliel Harris DO Work Phone: [employer] 09-18-2023 08:49-0500 SaO2% (BldA) [Mass fraction] 100 % Gamaliel Harris DO Work Phone: [employer] 09-18-2023 08:49-0500 Systolic blood pressure 111 mm[Hg] Gamaliel Harris DO Work Phone: [employer] 09-18-2023 08:24-0500 Body temperature 97.11 [degF] Gamaliel Harris DO Work Phone: [employer] 09-18-2023 07:23-0500 Body height 170.2 cm Gamaliel Harris DO Work Phone: [employer] 09-18-2023 07:23-0500 Body mass index (BMI) [Ratio] 31.79 kg/m2 Gamaliel Harris DO Work Phone: [employer] 09-18-2023 07:23-0500 Body weight 92.08 kg Gamaliel Harris DO Work Phone: [facility] 08-15-2023 13:37-0500 Diastolic blood pressure 69 mm[Hg] DO Jennie Ames Work Phone: [facility] 08-15-2023 13:37-0500 Heart rate 70 /min DO Jennie Ames Work Phone: [facility] 08-15-2023 13:37-0500 Respiratory rate 18 /min DO Jennie Ames Work Phone: [facility] 08-15-2023 13:37-0500 SaO2% (BldA) [Mass fraction] 99 % DO Jennie Ames Work Phone: [facility] 08-15-2023 13:37-0500 Systolic blood pressure 107 mm[Hg] DO Jennie Ames Work Phone: [facility] 08-15-2023 11:29-0500 Body height 170.18 cm DO Jennie Ames Work Phone: [facility] 08-15-2023 11:29-0500 Body temperature 98.2 [degF] DO Jennie Ames Work Phone: [facility] 08-15-2023 11:29-0500 Body weight 86.18 kg DO Jennie Ames Work Phone: [facility] 08-14-2023 16:43-0500 Body height 170.18 cm DO Jennie Ames Work Phone: [facility] 08-14-2023 16:43-0500 Body temperature 98.2 [degF] DO Jennie Ames Work Phone: [facility] 08-14-2023 16:43-0500 Body weight 88.6 kg DO Jennie Ames Work Phone: [facility] 08-14-2023 16:43-0500 Diastolic blood pressure 66 mm[Hg] DO Jennie Ames Work Phone: [facility] 08-14-2023 16:43-0500 Heart rate 80 /min DO Jennie Ames Work Phone: [facility] 08-14-2023 16:43-0500 Respiratory rate 18 /min DO Jennie Ames Work Phone: [facility] 08-14-2023 16:43-0500 SaO2% (BldA) [Mass fraction] 98 % DO Jennie Ames Work Phone: [facility] 08-14-2023 16:43-0500 Systolic blood pressure 118 mm[Hg] DO Jennie Ames Work Phone: [facility] 08-13-2023 11:15-0500 Body height 170.18 cm Imad Asaad Other [employer] Other 08-13-2023 11:15-0500 Body mass index (BMI) [Ratio] 30.54 kg/m2 Imad Asaad Other [employer] Other 08-13-2023 11:15-0500 Body weight 88.45 kg Imad Asaad Other [employer] Other 08-13-2023 11:15-0500 Diastolic blood pressure 84 mm[Hg] Imad Asaad Other [employer] Other 08-13-2023 11:15-0500 Systolic blood pressure 133 mm[Hg] Imad Asaad Other [employer] Other 07-08-2023 12:05-0400 Body height 170.18 cm Ania Javed Other [employer] Other 07-08-2023 12:05-0400 Body mass index (BMI) [Ratio] 30.22 kg/m2 Ania Javed Other [employer] Other 07-08-2023 12:05-0400 Body temperature 99 [degF] Ania Javed Other [employer] Other 07-08-2023 12:05-0400 Body weight 87.54 kg Ania Javed Other [employer] Other 07-08-2023 12:05-0400 Diastolic blood pressure 64 mm[Hg] Ania Javed Other [employer] Other 07-08-2023 12:05-0400 Respiratory rate 19 /min Ania Javed Other [employer] Other 07-08-2023 12:05-0400 SaO2% (BldA) [Mass fraction] 98 % Ania Javed Other [employer] Other 07-08-2023 12:05-0400 Systolic blood pressure 110 mm[Hg] Ania Javed Other [employer] Other 07-03-2023 11:05-0400 Diastolic blood pressure 80 mm[Hg] DO Jennie Ames Work Phone: [facility] 07-03-2023 11:05-0400 Heart rate 78 /min DO Jennie Ames Work Phone: [facility] 07-03-2023 11:05-0400 Respiratory rate 16 /min DO Jennie Ames Work Phone: [facility] 07-03-2023 11:05-0400 SaO2% (BldA) [Mass fraction] 99 % DO Jennie Ames Work Phone: [facility] 07-03-2023 11:05-0400 Systolic blood pressure 119 mm[Hg] DO Jennie Ames Work Phone: [facility] 07-03-2023 10:10-0400 Body height 170.18 cm DO Jennie Ames Work Phone: [facility] 07-03-2023 10:10-0400 Body temperature 98.7 [degF] DO Jennie Hameede Work Phone: [facility] 07-03-2023 10:10-0400 Body weight 86.9 kg DO Jennie Hameede Work Phone: [facility] 07-02-2023 14:06-0400 Body temperature 98.06 [degF] Bakari Chester [facility] 07-02-2023 14:06-0400 Diastolic blood pressure 78 mm[Hg] Bakari Chester [facility] 07-02-2023 14:06-0400 Heart rate 91 /min Bakari Henrik [facility] 07-02-2023 14:06-0400 Respiratory rate 18 /min Bakari Henrik [facility] 07-02-2023 14:06-0400 SaO2% (BldA) [Mass fraction] 100 % Bakari Henrik [facility] 07-02-2023 14:06-0400 Systolic blood pressure 121 mm[Hg] Bakari Henrik [facility] 01-15-2023 13:30-0400 Diastolic blood pressure 85 mm[Hg] Bakari Henrik [facility] 01-15-2023 13:30-0400 Heart rate 71 /min Bakari Henrik [facility] 01-15-2023 13:30-0400 Mean blood pressure 98 mm[Hg] Bakari Henrik [facility] 01-15-2023 13:30-0400 Respiratory rate 18 /min Bakari Henrik [facility] 01-15-2023 13:30-0400 SaO2% (BldA) [Mass fraction] 100 % Bakari Henrik [facility] 01-15-2023 13:30-0400 Systolic blood pressure 125 mm[Hg] Bakari Henrik [facility] 01-15-2023 12:30-0400 Diastolic blood pressure 99 mm[Hg] Bakari Henrik [facility] 01-15-2023 12:30-0400 Heart rate 78 /min Bakari Henrik [facility] 01-15-2023 12:30-0400 Mean blood pressure 107 mm[Hg] Bakari Henrik [facility] 01-15-2023 12:30-0400 Respiratory rate 18 /min Bakari Henrik [facility] 01-15-2023 12:30-0400 SaO2% (BldA) [Mass fraction] 100 % Bakari Henrik [facility] 01-15-2023 12:30-0400 Systolic blood pressure 122 mm[Hg] Bakari Henrik [facility] 01-15-2023 10:50-0400 Body temperature 98.42 [degF] Bakari Henrik [facility] 01-15-2023 10:50-0400 Diastolic blood pressure 74 mm[Hg] Bakari Henrik [facility] 01-15-2023 10:50-0400 Heart rate 77 /min Bakari Henrik [facility] 01-15-2023 10:50-0400 Mean blood pressure 92 mm[Hg] Bakari Chester [facility] 01-15-2023 10:50-0400 Respiratory rate 17 /min Bakari Chester [facility] 01-15-2023 10:50-0400 SaO2% (BldA) [Mass fraction] 99 % Bakari Chester [facility] 01-15-2023 10:50-0400 Systolic blood pressure 129 mm[Hg] Bakari Chester [facility] 12-05-2022 13:20-0400 Diastolic blood pressure 74 mm[Hg] Gal Das [facility] 12-05-2022 13:20-0400 Heart rate 58 /min Gal Das [facility] 12-05-2022 13:20-0400 Respiratory rate 18 /min Gal Das [facility] 12-05-2022 13:20-0400 SaO2% (BldA) [Mass fraction] 100 % Gal Das [facility] 12-05-2022 13:20-0400 Systolic blood pressure 110 mm[Hg] Gal Marinten [facility] 12-05-2022 12:00-0400 Heart rate 54 /min Gal Das [facility] 12-05-2022 12:00-0400 SaO2% (BldA) [Mass fraction] 100 % Gal Das [facility] 12-05-2022 11:59-0400 Diastolic blood pressure 72 mm[Hg] Gal Thiago [facility] 12-05-2022 11:59-0400 Mean blood pressure 84 mm[Hg] Gal Das [facility] 12-05-2022 11:59-0400 Systolic blood pressure 109 mm[Hg] Gal Das [facility] 12-05-2022 11:53-0400 Body temperature 97.52 [degF] Gal Das [facility] 12-05-2022 11:53-0400 Diastolic blood pressure 73 mm[Hg] Gal Das [facility] 12-05-2022 11:53-0400 Heart rate 59 /min Gal Das [facility] 12-05-2022 11:53-0400 Mean blood pressure 87 mm[Hg] Gal Das [facility] 12-05-2022 11:53-0400 Respiratory rate 14 /min Gal Das [facility] 12-05-2022 11:53-0400 SaO2% (BldA) [Mass fraction] 100 % Gal Das [facility] 12-05-2022 11:53-0400 Systolic blood pressure 115 mm[Hg] Gal Das [facility] 12-05-2022 11:40-0400 Mean blood pressure 80 mm[Hg] Gal Das [facility] 12-05-2022 11:40-0400 Respiratory rate 18 /min Gal Das [facility] 12-05-2022 11:30-0400 Mean blood pressure 90 mm[Hg] Gal Das [facility] 12-05-2022 11:15-0400 Body temperature 97.34 [degF] Gal Das [facility] 12-05-2022 11:10-0400 Respiratory rate 18 /min Gal Das [facility] 12-05-2022 11:05-0400 Respiratory rate 21 /min Gal Das [facility] 12-05-2022 11:00-0400 Respiratory rate 11 /min Gal Das [facility] 12-05-2022 07:15-0400 Mean blood pressure 79 mm[Hg] Gal Das [facility] 12-05-2022 07:15-0400 Body temperature 97.88 [degF] Gal Das [facility] 12-05-2022 07:15-0400 Heart rate 72 /min Gal Das [facility] 12-05-2022 07:12-0400 Mean blood pressure 82 mm[Hg] Gal Das [facility] 11-21-2022 10:44-0500 Diastolic blood pressure 75 mm[Hg] Gal Das [facility] 11-21-2022 10:44-0500 Heart rate 67 /min Gal Das [facility] 11-21-2022 10:44-0500 Mean blood pressure 88 mm[Hg] Gal Das [facility] 11-21-2022 10:44-0500 Systolic blood pressure 112 mm[Hg] Gal Das [facility] 11-21-2022 10:44-0500 Heart rate 71 /min Gal Das [facility] 11-21-2022 10:44-0500 SaO2% (BldA) [Mass fraction] 100 % Gal Das [facility] 11-21-2022 10:43-0500 Diastolic blood pressure 79 mm[Hg] Gal Das [facility] 11-21-2022 10:43-0500 Mean blood pressure 91 mm[Hg] Gal Das [facility] 11-21-2022 10:43-0500 Systolic blood pressure 116 mm[Hg] Gal Das [facility] 11-21-2022 10:43-0500 Respiratory rate 16 /min Gal Das [facility] 11-20-2022 08:09-0500 Body height 170.2 cm Eileen Manzano MD Work Phone: [facility] 11-20-2022 08:09-0500 Body weight 85.73 kg Eileen Manzano MD Work Phone: [facility] 11-20-2022 08:09-0500 Diastolic blood pressure 81 mm[Hg] Eileen Manzano MD Work Phone: [facility] 11-20-2022 08:09-0500 Heart rate 67 /min Eileen Manzano MD Work Phone: [facility] 11-20-2022 08:09-0500 SaO2% (BldA) [Mass fraction] 100 % Eileen Manzano MD Work Phone: [facility] 11-20-2022 08:09-0500 Systolic blood pressure 137 mm[Hg] Eileen Manzano MD Work Phone: [facility] 11-03-2022 12:57-0500 Blood Pressure Location Nakia Mcqueen [facility] 11-03-2022 12:57-0500 Body temperature 98.24 [degF] Nakia Mcqueen [facility] 11-03-2022 12:57-0500 Diastolic blood pressure 80 mm[Hg] Nakia Mcqueen [facility] 11-03-2022 12:57-0500 Heart rate 85 /min Nakia Mcqueen [facility] 11-03-2022 12:57-0500 SaO2% (BldA) [Mass fraction] 98 % Nakia Mcqueen [facility] 11-03-2022 12:57-0500 Systolic blood pressure 104 mm[Hg] Nakia Mcqueen [facility] 09-24-2022 06:57-0500 Blood Pressure Location Aimee Walker [facility] 09-24-2022 06:57-0500 Body temperature 98.24 [degF] Aimee Valadezell [facility] 09-24-2022 06:57-0500 Diastolic blood pressure 64 mm[Hg] Aimee Valadezell [facility] 09-24-2022 06:57-0500 Heart rate 77 /min Aimee Valadezell [facility] 09-24-2022 06:57-0500 SaO2% (BldA) [Mass fraction] 99 % Aimeeerin Valadezell [facility] 09-24-2022 06:57-0500 Systolic blood pressure 118 mm[Hg] Aimee Walker [facility] 08-22-2022 10:31-0500 Blood Pressure Location Rahul Salinas [facility] 08-22-2022 10:31-0500 Body temperature 98.06 [degF] Rahul Salinas [facility] 08-22-2022 10:31-0500 Diastolic blood pressure 76 mm[Hg] [facility] 08-22-2022 10:31-0500 Heart rate 95 /min Rahul Rita [facility] 08-22-2022 10:31-0500 SaO2% (BldA) [Mass fraction] 98 % [facility] 08-22-2022 10:31-0500 Systolic blood pressure 110 mm[Hg] [facility] 08-19-2022 09:45-0500 Diastolic blood pressure 69 mm[Hg] DO Jennie Ames Work Phone: [facility] 08-19-2022 09:45-0500 Heart rate 82 /min DO Jennie Ames Work Phone: [facility] 08-19-2022 09:45-0500 Respiratory rate 16 /min DO Jennie Ames Work Phone: [facility] 08-19-2022 09:45-0500 SaO2% (BldA) [Mass fraction] 95 % DO Jennie Ames Work Phone: [facility] 08-19-2022 09:45-0500 Systolic blood pressure 104 mm[Hg] DO Jennie Ames Work Phone: [facility] 08-19-2022 07:41-0500 Body height 170.18 cm DO Jennie Ames Work Phone: [facility] 08-19-2022 07:41-0500 Body weight 83.6 kg DO Jennie Ames Work Phone: [facility] 08-18-2022 17:26-0500 Body temperature 98.06 [degF] Alexis Shukla [facility] 08-18-2022 17:26-0500 Diastolic blood pressure 83 mm[Hg] Alexis Lopeze [facility] 08-18-2022 17:26-0500 Heart rate 84 /min Alexis Vazquez [facility] 08-18-2022 17:26-0500 Respiratory rate 18 /min Alexis Shukla [facility] 08-18-2022 17:26-0500 SaO2% (BldA) [Mass fraction] 98 % Alexis Shukla [facility] 08-18-2022 17:26-0500 Systolic blood pressure 120 mm[Hg] Alexis Shukla [facility] 08-12-2022 15:50-0500 Body temperature 97.9 [degF] DO Jennie Ames Work Phone: [facility] 08-12-2022 15:50-0500 Diastolic blood pressure 83 mm[Hg] DO Jennie Ames Work Phone: [facility] 08-12-2022 15:50-0500 Heart rate 64 /min DO Jennie Ames Work Phone: [facility] 08-12-2022 15:50-0500 Respiratory rate 20 /min DO Jennie Ames Work Phone: [facility] 08-12-2022 15:50-0500 SaO2% (BldA) [Mass fraction] 100 % DO Jennie Ames Work Phone: [facility] 08-12-2022 15:50-0500 Systolic blood pressure 136 mm[Hg] DO Jennie Ames Work Phone: [facility] 08-12-2022 11:00-0500 Body height 170.18 cm DO Jennie Ames Work Phone: [facility] 08-12-2022 06:00-0500 Body weight 88.1 kg DO Jennie Ames Work Phone: [facility] 08-08-2022 10:30-0500 Diastolic blood pressure 76 mm[Hg] Bakari Chester [facility] 08-08-2022 10:30-0500 Heart rate 58 /min Bakari Henrik [facility] 08-08-2022 10:30-0500 Mean blood pressure 88 mm[Hg] Bakari Henrik [facility] 08-08-2022 10:30-0500 Respiratory rate 20 /min Bakari Henrik [facility] 08-08-2022 10:30-0500 SaO2% (BldA) [Mass fraction] 100 % Bakari Chester [facility] 08-08-2022 10:30-0500 Systolic blood pressure 112 mm[Hg] Bakari Chester [facility] 08-08-2022 10:00-0500 Diastolic blood pressure 86 mm[Hg] Bakari Chester [facility] 08-08-2022 10:00-0500 Heart rate 64 /min Bakari Henrik [facility] 08-08-2022 10:00-0500 Mean blood pressure 97 mm[Hg] Bakari Chester [facility] 08-08-2022 10:00-0500 Systolic blood pressure 120 mm[Hg] Bakari Chester [facility] 08-08-2022 09:13-0500 gluc 98 mg/dL Bakari Chester [facility] 08-08-2022 09:13-0500 gluc Bakari Chester [facility] 08-08-2022 09:06-0500 Body temperature 97.7 [degF] Bakari Chester [facility] 08-08-2022 09:06-0500 Diastolic blood pressure 87 mm[Hg] Bakari Chester [facility] 08-08-2022 09:06-0500 Heart rate 79 /min Bakari Chester [facility] 08-08-2022 09:06-0500 Respiratory rate 18 /min Bakari Chester [facility] 08-08-2022 09:06-0500 SaO2% (BldA) [Mass fraction] 100 % Bakari Chester [facility] 08-08-2022 09:06-0500 Systolic blood pressure 127 mm[Hg] Bakari Chester [facility] 07-21-2022 10:50-0500 Blood Pressure Location Aimee Aaron [facility] 07-21-2022 10:50-0500 Body temperature 97.7 [degF] Aimee Walker [facility] 07-21-2022 10:50-0500 Diastolic blood pressure 72 mm[Hg] Aimee Valadezell [facility] 07-21-2022 10:50-0500 Heart rate 74 /min Aimee Walker [facility] 07-21-2022 10:50-0500 SaO2% (BldA) [Mass fraction] 99 % Aimee Valadezell [facility] 07-21-2022 10:50-0500 Systolic blood pressure 128 mm[Hg] Aimee Valadezell [facility] 05-13-2022 10:09-0400 Diastolic blood pressure 74 mm[Hg] Alexis Rivers [facility] [place] 05-13-2022 10:09-0400 Heart rate 68 /min Alexis Rivers [facility] [place] 05-13-2022 10:09-0400 Systolic blood pressure 112 mm[Hg] Alexis Rivers [facility] [place] 04-21-2022 09:39-0400 Blood Pressure Location Aimeeerin Valadezell [facility] 04-21-2022 09:39-0400 Body temperature 98.24 [degF] Aimee Walker [facility] 04-21-2022 09:39-0400 Diastolic blood pressure 72 mm[Hg] Aimee Walker [facility] 04-21-2022 09:39-0400 Heart rate 94 /min Aimeeerin Valadezell [facility] 04-21-2022 09:39-0400 SaO2% (BldA) [Mass fraction] 100 % Aimeeerin Valadezell [facility] 04-21-2022 09:39-0400 Systolic blood pressure 112 mm[Hg] Aimee Walker [facility] 04-20-2022 14:56-0400 Body temperature 98.24 [degF] [facility] 04-20-2022 14:56-0400 Diastolic blood pressure 72 mm[Hg] [facility] 04-20-2022 14:56-0400 Heart rate 69 /min [facility] 04-20-2022 14:56-0400 Respiratory rate 18 /min [facility] 04-20-2022 14:56-0400 SaO2% (BldA) [Mass fraction] 99 % [facility] 04-20-2022 14:56-0400 Systolic blood pressure 111 mm[Hg] [facility] 04-03-2022 19:17-0400 Hourly Rounding Kaylinn Dokken [facility] 04-03-2022 19:17-0400 Promise to Return Kaylinn Dokken [facility] 04-03-2022 19:15-0400 Diastolic blood pressure 71 mm[Hg] Kaylinn Dokken [facility] 04-03-2022 19:15-0400 Heart rate 63 /min Kaylinn Dokken [facility] 04-03-2022 19:15-0400 Mean blood pressure 82 mm[Hg] Kaylinn Dokken [facility] 04-03-2022 19:15-0400 Respiratory rate 18 /min Kaylinn Dokken [facility] 04-03-2022 19:15-0400 SaO2% (BldA) [Mass fraction] 100 % Kaylinn Dokken [facility] 04-03-2022 19:15-0400 Systolic blood pressure 105 mm[Hg] Kaylinn Dokken [facility] 04-03-2022 17:09-0400 Body temperature 98.06 [degF] Kaylinn Dokken [facility] 04-03-2022 17:09-0400 Diastolic blood pressure 83 mm[Hg] Kaylinn Dokken [facility] 04-03-2022 17:09-0400 Heart rate 87 /min Larry Baker [facility] 04-03-2022 17:09-0400 Respiratory rate 18 /min Larry Gregorioen [facility] 04-03-2022 17:09-0400 SaO2% (BldA) [Mass fraction] 99 % Larry Baker [facility] 04-03-2022 17:09-0400 Systolic blood pressure 119 mm[Hg] Larry Gregorioen [facility] 02-06-2022 09:06-0400 Blood Pressure Location Aimeeerin Valadezell [facility] 02-06-2022 09:06-0400 Body temperature 97.52 [degF] Aimee Walker [facility] 02-06-2022 09:06-0400 Diastolic blood pressure 72 mm[Hg] Aimee Walker [facility] 02-06-2022 09:06-0400 Heart rate 81 /min Aimee Walker [facility] 02-06-2022 09:06-0400 SaO2% (BldA) [Mass fraction] 100 % Aieme Walker [facility] 02-06-2022 09:06-0400 Systolic blood pressure 130 mm[Hg] Aimee Walker [facility] 01-29-2022 10:31-0400 Blood Pressure Location Aimee Walker [facility] 01-29-2022 10:31-0400 Body temperature 97.16 [degF] Aimee Valadezell [facility] 01-29-2022 10:31-0400 Diastolic blood pressure 76 mm[Hg] Aimee Valadezell [facility] 01-29-2022 10:31-0400 Heart rate 94 /min Aimee Valadezell [facility] 01-29-2022 10:31-0400 SaO2% (BldA) [Mass fraction] 98 % Aimee Walker [facility] 01-29-2022 10:31-0400 Systolic blood pressure 118 mm[Hg] Aimee Valadezell [facility] 02-01-2021 07:15-0400 Body temperature 97.7 [degF] Berry Lawson MD Work Phone: [employer] Work Phone: 02-01-2021 07:15-0400 Diastolic blood pressure 63 mm[Hg] Berry Lawson MD Work Phone: [employer] Work Phone: 02-01-2021 07:15-0400 Heart rate 82 /min Berry Lawson MD Work Phone: [employer] Work Phone: 02-01-2021 07:15-0400 Respiratory rate 18 /min Berry Lawson MD Work Phone: [employer] Work Phone: 02-01-2021 07:15-0400 SaO2% (BldA) [Mass fraction] 98 % Berry Lawson MD Work Phone: [employer] Work Phone: 02-01-2021 07:15-0400 Systolic blood pressure 110 mm[Hg] Berry Lawson MD Work Phone: [employer] Work Phone: 01-30-2021 16:54-0400 Body height 170.2 cm Berry Lawson MD Work Phone: [employer] Work Phone: 01-30-2021 16:54-0400 Body mass index (BMI) [Ratio] 38.53 kg/m2 Berry Lawson MD Work Phone: [employer] Work Phone: 01-30-2021 16:54-0400 Body weight 111.58 kg Berry Lawosn MD Work Phone: [employer] Work Phone: 01-30-2021 14:27-0400 Diastolic blood pressure 66 mm[Hg] David Nash MD Work Phone: [employer] Work Phone: 01-30-2021 14:27-0400 Heart rate 93 /min David Nash MD Work Phone: [employer] Work Phone: 01-30-2021 14:27-0400 Respiratory rate 16 /min David Nash MD Work Phone: [employer] Work Phone: 01-30-2021 14:27-0400 SaO2% (BldA) [Mass fraction] 98 % David Nash MD Work Phone: [employer] Work Phone: 01-30-2021 14:27-0400 Systolic blood pressure 107 mm[Hg] David Nash MD Work Phone: [employer] Work Phone: 01-30-2021 09:51-0400 Body temperature 97.2 [degF] David Nash MD Work Phone: [employer] Work Phone: 01-26-2021 09:00-0400 Body temperature 98.2 [degF] Gamaliel Harris DO Work Phone: [employer] Phone: 01-26-2021 09:00-0400 Diastolic blood pressure 77 mm[Hg] Gamaliel Harris DO Work Phone: [employer] Work Phone: 01-26-2021 09:00-0400 Heart rate 90 /min Gamaliel Harris [employer] Work Phone: [employer] Phone: 01-26-2021 09:00-0400 Respiratory rate 16 /min Gamaliel Harris [employer] Work Phone: [employer] Work Phone: 01-26-2021 09:00-0400 SaO2% (BldA) [Mass fraction] 96 % Gamaliel Harris [employer] Work Phone: [employer] Work Phone: 01-26-2021 09:00-0400 Systolic blood pressure 111 mm[Hg] Gamalielkemar Harris [employer] Work Phone: [employer] Phone: 01-08-2021 07:35-0400 Body temperature 97.81 [degF] Gamalielkemar Harris [employer] Work Phone: [employer] Work Phone: 01-08-2021 07:35-0400 SaO2% (BldA) [Mass fraction] 97 % Gamaliel Harris [employer] Work Phone: [employer] Phone: 01-08-2021 07:29-0400 Diastolic blood pressure 77 mm[Hg] Gamaliel Harris [employer] Work Phone: [employer] Phone: 01-08-2021 07:29-0400 Heart rate 87 /min Gamaliel Harris [employer] Work Phone: [employer] Phone: 01-08-2021 07:29-0400 Respiratory rate 18 /min Gamaliel Harris [employer] Phone: [employer] Phone: 01-08-2021 07:29-0400 Systolic blood pressure 123 mm[Hg] Gamaliel Harris [employer] Work Phone: [employer] Phone: 01-07-2021 06:29-0400 Body height 170.2 cm Gamaliel Harris [employer] Work Phone: [employer] Phone: 01-07-2021 06:29-0400 Body mass index (BMI) [Ratio] 40.68 kg/m2 Gamaliel Harris [employer] Work Phone: [employer] Phone: 01-07-2021 06:29-0400 Body weight 117.8 kg Gamaliel Harris [employer] Work Phone: [employer] Phone: 12-24-2020 10:33-0400 Body height 170.2 cm Stvz 2 [employer] Phone: 12-24-2020 10:33-0400 Body mass index (BMI) [Ratio] 42.76 kg/m2 Stvz 2 [employer] Phone: 12-24-2020 10:33-0400 Body temperature 97.7 [degF] Stv 2 [employer] Phone: 12-24-2020 10:33-0400 Body weight 123.83 kg Stv 2 [employer] Phone: 12-24-2020 10:33-0400 Diastolic blood pressure 76 mm[Hg] Stv 2 [employer] Phone: 12-24-2020 10:33-0400 Heart rate 71 /min Stv 2 [employer] Phone: 12-24-2020 10:33-0400 Respiratory rate 18 /min Stv 2 [employer] Phone: 12-24-2020 10:33-0400 SaO2% (BldA) [Mass fraction] 98 % St 2 [employer] Phone: 12-24-2020 10:33-0400 Systolic blood pressure 115 mm[Hg] St 2 [employer] Phone: 09-28-2020 08:40-0500 BP Diastolic 75 mm[Hg] [email or web address] [place] 09-28-2020 08:40-0500 BP Systolic 117 mm[Hg] Gamaliel [employer] [place] 09-28-2020 08:40-0500 Pulse (Heart Rate) 84 /min Gamaliel Harris [employer], [place] 09-28-2020 08:40-0500 Pulse Oximetry 100 % Gamaliel [employer], [place] 09-28-2020 08:25-0500 Body Temperature 96.8 [degF] Gamaliel Harris [employer] 09-28-2020 08:25-0500 Respiratory Rate 23 /min Gamaliel Harris [employer] [place], [place] 09-28-2020 07:07-0500 BMI (Body Mass Index) 45.66 kg/m2 [facility] 09-28-2020 07:07-0500 Body weight 132.22 [facility] 09-28-2020 07:07-0500 Height 170.2 cm [facility] En[facility] Encounter Date Encounter Type Care Provider Facility Start: 05-30-2024 End: 05-30-2024 ambulatory Lenora Yee RN Work Phone: Nursing Aide Management Comment on above: CARMELINA LAN RN ( ED Utilization review per request of payer) Start: 05-11-2024 ambulatory Lindy Keen Facility :[facility] Start: 04-26-2024 ambulatory Elia mcdowell DO Work Phone: Family Medicine Start: 03-08-2024 End: 03-08-2024 Emergency department patient visit Alexis Shukla [facility] Start: 03-08-2024 End: 03-08-2024 Subsequent hospital visit by physician Mri [facility] [place] (Lg Bore/1.5t) Radiology MRI Comment on above: 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 ] Start: 03-08-2024 End: 03-08-2024 ambulatory ELIA BAIRES Facility:[facility] Start: 03-08-2024 End: 03-08-2024 Patient encounter procedure Elia Baires DO Work Phone: Family [facility] Comment on above: Routine health maint enance [...] encounter status Elia Baires DO Work Phone: [facility] Work Phone: Start: 02-25-2024 End: 02-25-2024 ambulatory ELIA BAIRSE Facility:[facility] Start: 01-13-2024 End: 01-14-2024 ambulatory MARII DASILVA [facility] Start: 01-05-2024 Telephone encounter Elia rob DO Work Phone: Family [facility] Start: 01-04-2024 End: 01-04-2024 ambulatory ELIA BAIRES Facility:[facility] Start: 01-04-2024 End: 01-04-2024 Patient encounter procedure Elia Baires DO Work Phone: Family Medicine Comment on above: Panic disorder (Prim masoud Dx); Borderline personality disorder (HCC); Bipolar affective disorder in remission (HCC); Chronic alcoholism in remission (HCC); Routine health maintenance Start: 01-04-2024 End: 01-04-2024 Patient encounter status Elia Baires DO Work Phone: [facility] Start: 12-31-2023 End: 12-31-2023 Emergency department patient visit DO Jennie Ames Work Phone: [facility] Work Phone: Start: 12-25-2023 ambulatory SELF REFERRAL [place] [facility] [place] Start: 12-24-2023 End: 12-24-2023 Emergency department patient visit DO Jennie Ames Work Phone: [facility] Work Phone: Start: 2023 ambulatory Otto Larsen [place] [place] Start: 12-10-2023 End: 12-10-2023 Emergency department patient visit DO Jennie Ames Work Phone: [facility] Work Phone: Start: 12-09-2023 End: 12-09-2023 ambulatory Jennie Ames [place] [place] Start: 12-09-2023 End: 12-09-2023 Patient encounter procedure Jennie Ames [facility] Start: 10-23-2023 End: 10-26-2023 [facility] Start: 10-12-2023 End: 10-15-2023 ambulatory [facility]EL [facility] Start: 09-18-2023 End: 09-18-2023 ambulatory GAMALIEL Gastelum [facility] Start: 09-18-2023 End: 09-18-2023 Subsequent hospital visit by physician Gamaliel Harris DO Work Phone: [facility] Start: 08-31-2023 End: 09-01-2023 ambulatory HEYDIR Fallon GROSSMAN Facility:[facility] Start: 08-28-2023 End: 08-28-2023 ambulatory Imad Asaad Other [employer] Other Start: 08-28-2023 Telephone encounter Imad Asaad [facility] Start: 08-18-2023 End: 08-21-2023 ambulatory [facility] Start: 08-15-2023 End: 08-15-2023 Emergency department patient visit DO Jennie Ames Work Phone: [facility] Work Phone: Start: 08-14-2023 End: 08-14-2023 Emergency department patient visit DO Jennie Ames Work Phone: [facility] Work Phone: Start: 08-13-2023 End: 08-13-2023 ambulatory Imad Asaad Other [employer] Other Start: 08-13-2023 Office outpatient ne w 45 minutes Imad Asaad [facility] Start: 08-12-2023 End: 08-15-2023 ambulatory [facility] Start: 07-30-2023 End: 07-31-2023 ambulatory JENNIE Ngo LADARIUS [facility] Start: 07-08-2023 End: 07-08-2023 ambulatory Ania Javed Other [employer] Other Start: 07-08-2023 Office outpatient ne w 20 minutes Ania Javed [facility] Start: 07-03-2023 End: 07-03-2023 Emergency department patient visit Jennie Ames Work Phone: [facility] Work Phone: Start: 07-02-2023 End: 07-02-2023 Emergency department patient visit Bakari Chester [facility] Start: 06-10-2023 End: 06-10-2023 ambulatory EILEEN MANZANO Facility:[facility] Start: 06-09-2023 End: 06-09-2023 Emergency department patient visit Alexis Shukla [place] [place] Start: 06-03-2023 Refill Eileen Manzano MD Work Phone: Neurology Comment on above: Refill Request Start: 03-19-2023 End: 03-19-2023 ambulatory SN[employer] REMOVAL SUPERVISOR GANESH CORDERO [place] [place] Start: 03-19-2023 End: 03-19-2023 Patient encounter procedure GANESH CORDERO [facility] Start: 01-29-2023 End: 01-29-2023 Subsequent hospital visit by physician Marixa [facility] [place] (1.5t) Work Phone: Radiology Comment on above: 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] Start: 01-15-2023 End: 01-15-2023 Emergency department patient visit Bakari Chester [facility] Start: 01-02-2023 End: 01-02-2023 Patient encounter procedure Nakia Mcqueen [facility] Start: 12-12-2022 Refill Eileen Manzano MD Work Phone: Neurology Comment on above: Refill Request Start: 12-05-2022 End: 12-05-2022 Admission to same day surgery center Gal Das [facility] Start: 11-21-2022 End: 11-21-2022 Patient encounter procedure Gal Das [facility] Start: 11-20-2022 End: 11-20-2022 ambulatory EILEEN MANZANO Facility:[facility] Start: 11-20-2022 End: 11-20-2022 Patient encounter procedure Eileen Manzano MD Work Phone: Neurology Comment on above: Idiopathic intracran ial hypertension (Primary Dx); Depression, unspecified depression type; Primary hypertension; Hx of gastric bypass; H/O foot surgery Start: 11-03-2022 End: 11-03-2022 Patient encounter procedure Nakia Mcqueen [facility] Start: 10-30-2022 End: 10-30-2022 ambulatory STEFANIE SINGH . Facility: Start: 10-23-2022 End: 10-23-2022 Lab Drop off Gal Das [facility] Start: 10-14-2022 End: 10-14-2022 Patient encounter procedure Rita Loja [facility] Start: 09-24-2022 End: 09-24-2022 Patient encounter procedure Aimee Walker [facility] Start: 08-22-2022 End: 08-22-2022 Patient encounter procedure Rahul Salinas [facility] Start: 08-19-2022 End: 08-19-2022 ambulatory DO Jennie Ames Work Phone: [facility] Work Phone: Start: 08-19-2022 End: 08-19-2022 Patient encounter procedure DO Jennie Ames Work Phone: [facility] Start: 08-18-2022 End: 08-18-2022 ambulatory RAMSES MARTINEZ . Facility:[facility] Start: 08-18-2022 End: 08-18-2022 Emergency department patient visit Alexis Shukla [facility] Start: 08-16-2022 End: 08-16-[address] NEW DREW . Facility:[facility] Start: 08-12-2022 ambulatory Facility:[id number] Start: 08-11-2022 End: 08-12-2022 Evaluation and management of inpatient DO Jennie Ames Work Phone: [facility] [place] [facility] Start: 08-11-2022 End: 08-12-2022 observation encounter DO Jennie Ames Work Phone: [facility] Work Phone: Start: 08-11-2022 End: 08-11-[address] WEI PHAM Facility:H1 Start: 08-08-2022 End: 08-08-2022 Emergency department patient visit Bakari Chester [facility] Start: 07-21-2022 End: 07-21-2022 Patient encounter procedure Aimee Walker [facility] Start: 07-19-2022 End: 11-05-[address] DOCTOR CAMARILLO Facility:H1 Start: 07-18-2022 Telephone encounter Eduin Mckee Plastic Surgery Comment on above: Appointment Start: 06-12-2022 End: 06-12-[address] CAROLYNE RALPH Facility:H1 Start: 06-10-2022 End: 06-10-2022 Patient encounter procedure Alexis Rivers [facility] Start: 05-30-2022 End: 05-30-2022 ambulatory GABRIELA CAMARGO Facility:H1 Start: 05-13-2022 End: 05-13-2022 Patient encounter procedure Alexis Rivers [facility] [place] Start: 04-22-2022 End: 04-22-2022 Patient encounter procedure Aimee Walker [facility] Start: 04-21-2022 End: 04-21-2022 Patient encounter procedure Aimee Walker [facility] Start: 04-20-2022 End: 04-20-2022 Emergency department patient visit Jose Correia [facility] Start: 04-07-2022 End: 04-07-[address] LADY SANCHEZ . Facility:H1 Start: 04-03-2022 End: 04-03-2022 Emergency department patient visit Larry Baker [facility] Start: 04-03-2022 End: 04-03-2022 Well adult monitoring check done Larry Baker [facility] Start: 02-12-2022 End: 02-12-2022 Patient encounter procedure Amee Gonzalez PA-C Work Phone: Otolaryngology Comment on above: Burning tongue (Prim masoud Dx); Irritation of oral cavity Start: 02-08-2022 End: 02-08-2022 ambulatory STEFANIE BON . Facility:H1 Start: 02-06-2022 End: 02-06-2022 Patient encounter procedure Aimee Walker [facility] Start: 01-30-2022 End: 01-30-2022 ambulatory GABRIELA CAMARGO Facility:H1 Start: 01-29-2022 End: 01-29-2022 Patient encounter procedure Aimee Walker [facility] Start: 01-27-2022 ambulatory Eduin Mckee MD Work Phone: Plastic Surgery Comment on above: questions Start: 01-10-2022 Telephone encounter Eduin marx MD Work Phone: Plastic Surgery Comment on above: Patient Question; Ap pointment Start: 01-09-2022 End: 01-09-2022 Patient encounter procedure Aimee Walker [facility] Start: 12-27-2021 Telephone encounter Eduin marx MD Work Phone: Plastic Surgery Comment on above: Orders Scheduling Start: 11-16-2021 End: 11-17-[address] WILEY ZABALA Facility:H1 Start: 02-04-2021 End: 02-06-2021 Subsequent hospital visit by physician [facility] Cat Scan Room [facility] CT Scan Comment on above: Omental infarction ( HCC) Start: 01-30-2021 End: 02-01-2021 Evaluation and management of inpatient Berry Lawson MD Work Phone: ST 2C Ortho/Med Surg Comment on above: Surgery, elective (P rimary Dx); Omental infarction (HCC) Start: 01-30-2021 End: 01-30-2021 Emergency department patient visit David Nash MD Work Phone: [facility] ED Comment on above: Generalized abdomina l pain (Primary Dx) Start: 01-26-2021 End: 01-26-2021 Subsequent hospital visit by physician Gamaliel Harris DO Work Phone: STNIKOLAI 3C Med Surg Comment on above: Dehydration Start: 01-07-2021 End: 01-08-2021 Evaluation and management of inpatient Gamaliel Harris DO Work Phone: STVYoim 2C Ortho/Med Surg Comment on above: Post-op pain (Primar y Dx) Start: 01-03-2021 End: 01-04-2021 ambulatory JENNIE AMES [facility] Start: 01-03-2021 End: 01-03-2021 Patient encounter status [employer] Schedule EDGARDO Covid Scre ening Start: 01-03-2021 End: 01-03-2021 Subsequent hospital visit by physician Edgardo Beyid Screening Schedule EDGARDO Covid Screening Comment on above: Preop testing (Prima ry Dx) Start: 12-24-2020 End: 12-28-2020 Subsequent hospital visit by physician Christiane Salinas Xr [facility] Radiology Comment on above: Arrived Start: 11-01-2020 End: 11-03-2020 Subsequent hospital visit by physician Chaitanya Jett Radiologist [facility] Radiology Comment on above: Gastroesophageal [...] testing Start: 11-01-2015 Patient encounter procedure LINDY COET Facility:[facility] Procedures Date Procedure Procedure Detail Performing Clinician Start: 06-25-2024 H/O: hysterectomy History of hysterectomy Elia N Baires DO Work Phone: Start: 03-08-2024 3d rendering w/interp&postproc diff work station Leonela Grossman MD Work Phone: Start: 03-08-2024 Mri abdomen w/o & w/contrast material Leonela Grossman MD Work Phone: Start: 01-04-2024 Drug tst prsmv instr mnt chem analyzers pr date Eliafredrick Baires DO Work Phone: Start: 12-10-2023 Plain chest X-ray DO Azeb Ames Work Phone: Start: 08-15-2023 Computed tomography of abdomen and pelvis with contrast DO Jennie Ames Work Phone: Start: 01-29-2023 Mra head w/o & w/con trast material Eileen Manzano MD Work Phone: Start: 12-05-2022 Hysterectomy Gal Ochoa [...] esop hagus single contrast study Gamaliel Harris [employer] Work Phone: Start: 01-08-2021 Basic metabolic pane l calcium total Gamaliel Gastelum Alee [place] Work Phone: Start: 01-07-2021 Basic metabolic pane l calcium total Gamaliel Gastelum Harris [place] Work Phone: Start: 01-07-2021 End: 01-07-2021 Laps gstr rstcv px w/byp tian-en-y limb <150 cm Gamaliel Gastelum Harris [place] Work Phone: Start: 01-07-2021 Urine test visual color cmprsn meths Gamaliel Gastelum Alee [place] [employer] Work Phone: Start: 12-24-2020 Assay of nicotine Enmanuel Gastelum Harris DO Work Phone: Start: 12-24-2020 Basic metabolic pane l calcium total Gamaliel Chinjonathan [place] Work Phone: Start: 12-24-2020 Radiologic exam ches t 2 views Gamaliel Chinton Work Phone: Start: 12-24-2020 Ecg routine ecg w/le ast 12 lds trcg only w/o i&r Gamaliel Harris DO Work Phone: Start: 12-24-2020 EKG REPORT Hpf Scanni ng Start: 11-01-2020 Radex upper gi w/wo glucagon/delay imges w/o kub Gamaliel Chinton Work Phone: Start: 09-24-2020 COVID-19 Obdulio Matthewu regalondra Work Phone: Start: 02-16-2020 Endoscopic plantar fasciotomy Aimee Walker Start: 06-02-2019 Endoscopic plantar fasciotomy Aimee Walker Comment on above: Endoscopic plantar f asciotomy, right foot Start: 02-11-2019 LEFT ELBOW ULNAR NER VE DECOMPRESSION Aimee Valadezell x3 Aimee Walker Esophagogastrostomy, antesternal or antethoracic Aimee Walker ft (qualifier value) Aimee Walker Comment on above: reconstruction H/O: tubal ligation Aimee Walker Investigation of transfusion reaction DO Jennie Ames Work Phone: Lumbar puncture to l ower intracranial pressure Rahul Salinas Plan of Treatment Date Care Activity Detail Author Start: 03-08-2025 Annual PCP Team Chronic Disease Visit Annual PCP Team Chronic Disease Visit [facility] Start: 03-08-2025 BP Controlled (<130/80) BP Controlled (<130/80) [facility] Start: 03-08-2025 Urine microalbumin profile DTaP,Tdap,Td Vaccine (1 - Tdap) [facility] Comment on above: Postponed from 12/18/2007 (Declined at t his time) Start: 01-03-2025 Annual PCP Team Chronic Disease Visit Annual PCP Team Chronic Disease Visit [facility] Start: 08-05-2024 End: 08-05-2024 ambulatory [facility] Comment on above: Fhx of pancreatic cancer, Phx of pancrea tic mass Action taken: Marked in OnBase for Schedulers Start: 07-01-2024 End: 07-01-2024 Patient encounter procedure 07/01/2024 11:00 AM EDT Office Visit Family Medicine [address] [place] [address] [place] [address] [place] [address] est care. Updated PCP per navigation rules. Family Medicine Comment on above: est care. Updated PCP per navigation rul es. Start: 05-31-2024 End: 05-31-2024 Patient encounter procedure 05/31/2024 11:00 AM EDT Office Visit Family Medicine [address] [place] [address] Lisha Bianchi, DIRECTOR OF AGRICULTURE.[employer] [address] [place] [address] ED follow up Family Medicine Comment on above: ED follow up Start: 05-24-2024 End: 05-24-2024 Patient encounter procedure 05/24/2024 11:15 AM EDT Office Visit Endocrinology [address] [place] [phone] Austin Leon, DIRECTOR OF AGRICULTURE.[employer] [address] [place] [address] Class 1 obesity due to excess calories without serious comorbidity with body ma Endocrinology Comment on above: Class 1 obesity due to excess calories w ithout serious comorbidity with body ma Start: 05-15-2024 Influenza vaccination [facility] Start: 03-01-2024 End: 03-01-2024 Patient encounter procedure 03/01/2024 11:20 AM EDT Appointment Radiology [address] [place] [address] MRI Panc/[facility] Comment on above: MRI Panc/Tanmay [facility] Start: 01-06-2024 End: 01-06-2024 ambulatory 01/06/2024 8:30 AM EDT Results Only [facility] [address] [place] [address] [place] [address] [facility] Start: 01-04-2024 End: 04-04-2024 CBC panel - Blood by Automated count COMPLETE BLOOD COUNT Lab Routine Routine health maintenance Expected: 01/04/2024, Expires: 04/04/2024 [facility] Work Phone: Comment on above: Expected: 01/04/2024, Expires: Start: 01-04-2024 End: 04-04-2024 Comprehensive metabolic 2000 panel - Serum or Plasma COMPREHENSIVE METABOLIC PANEL Lab Routine Routine health maintenance Expected: 01/04/2024, Expires: 04/04/2024 [facility] Comment on above: Expected: 01/04/2024, Expires: Start: 01-04-2024 End: 04-04-2024 Hemoglobin A1c in Blood HEMOGLOBIN A1C Lab Routine Routine health maintenance Expected: 01/04/2024, Expires: 04/04/2024 [facility] Comment on above: Expected: 01/04/2024, Expires: Start: 01-04-2024 End: 04-04-2024 Hepatitis C virus Ab [Presence] in Serum HEPATITIS C ANTIBODY IA WITH CONFIRMATION Lab Routine Routine health maintenance Expected: 01/04/2024, Expires: 04/04/2024 [facility] Comment on above: Expected: 01/04/2024, Expires: Start: 01-04-2024 End: 04-04-2024 HIV 1+2 Ab [Presence] in Serum or Plasma by Immunoassay HIV 1/2 COMBO WITH REFLEX TO DIFFERENTIATION Lab Routine Routine health maintenance Expected: 01/04/2024, Expires: 04/04/2024 [facility] Comment on above: Expected: 01/04/2024, Expires: Start: 01-04-2024 End: 04-04-2024 Lipid 1996 panel - Serum or Plasma LIPID PANEL BASIC Lab Routine Routine health maintenance Expected: 01/04/2024, Expires: 04/04/2024 [facility] Comment on above: Expected: 01/04/2024, Expires: Start: 12-10-2023 [facility] Start: 09-18-2023 End: 09-18-2023 Egd transoral biopsy single/multiple EGD BIOPSY Gastroesophageal reflux disease, unspecified whether esophagitis present Obesity (BMI 30-39.9) 09/18/2023 8:14 AM [facility] [place] Start: 05-15-2023 COVID-19 Vaccine () COVID-19 Vaccine () [facility] Start: 05-15-2023 Influenza vaccination Influenza Vaccine (#1) [facility] Start: 04-14-2023 Influenza vaccination Flu vaccine (#1) [facility] Start: 08-19-2022 Cerebrospinal fluid culture [facility] Start: 08-19-2022 End: 08-19-2022 [facility] Start: 08-12-2022 [facility] Start: 08-12-2022 Glucose [Mass/volume] in Cerebral spinal fluid [facility] Start: 08-12-2022 Protein [Mass/volume] in Cerebral spinal fluid [facility] Start: 08-12-2022 [facility] Start: 08-11-2022 Hospital admission [facility] Start: 08-11-2022 Referral to neurologist [facility] Start: 08-11-2022 [facility] Start: 05-15-2022 Influenza vaccination [facility] Start: 09-29-2021 COVID-19 VACCINE (3 - Booster for Pfizer series) COVID-19 VACCINE (3 - Booster for Pfizer series) [facility] Start: 09-14-2021 DEPRESSION ASSESSMENT DEPRESSION ASSESSMENT [facility] Start: 06-24-2021 COVID-19 VACCINE (3 - Booster for Pfizer series) COVID-19 VACCINE (3 - Booster for Pfizer series) [facility] Start: 06-24-2021 Covid-19 Vaccine (3 - Pfizer series) Covid-19 Vaccine (3 - Pfizer series) [facility] Start: 03-06-2021 End: 03-06-2021 Patient encounter procedure 03/06/2021 Office Visit Bariatrics Gamaliel Harris, DO [address] [phone] [facility] Invasive Bariatric Surg Start: 02-20-2021 End: 02-20-2021 Patient encounter procedure 02/20/2021 Office Visit Bariatrics Gamaliel Harris, DO [address] [place] [address] [facility] Start: 01-18-2021 End: 01-18-2021 Office Visit 01/18/2021 Office Visit Bariatrics Gamaliel Harris, DO [address] [place] [address] [facility] Invasive Bariatric Surg Start: 01-07-2021 End: 01-07-2021 Hospital Encounter [facility] Comment on above: XI LAPAROSCOPIC ROBOTIC GASTRIC BYPASS R OUX-EN-Y, LIVER BIOPSY, EGD- GI UNIT SCHEDULED. Start: 01-03-2021 End: 01-03-2021 Office Visit [facility] Invasive Bariatric Surg Comment on above: Arrived Start: 12-31-2020 End: 12-31-2021 COVID-19 COVID-19 Lab Routine Preop testing Expected: 12/31/2020, Expires: 12/31/2021 [facility] Work Phone: Comment on above: Expected: 12/31/2020, Expires: Start: 11-21-2020 End: 11-21-2020 Office Visit 11/21/2020 Office Visit Bariatrics Ganesh Cordero, DIRECTOR OF AGRICULTURE - [employer] [address] [place] [phone] [facility] Start: 11-01-2020 End: 11-01-2020 Appointment 11/01/2020 Appointment Radiology RadiologistChaitanya [facility]iology Start: 10-24-2020 End: 10-24-2020 Office Visit [facility] Start: 09-26-2020 Annual Wellness Visit (AWV) Annual Wellness Visit (AWV) [facility] [place], [place] Start: 2018 HPV TESTING HPV TESTING [facility] Start: 2018 Screening for malignant neoplasm of cervix [facility] Start: 2009 PAP TESTING PAP TESTING [facility] Start: 2009 Screening for malignant neoplasm of cervix [facility] Start: 12-18-2007 DTaP/Tdap/Td vaccine (1 - Tdap) DTaP/Tdap/Td vaccine (1 - Tdap) [facility] Start: 12-18-2007 Urine microalbumin profile [facility] Start: 2006 ANNUAL PCP TEAM CHRONIC DISEASE VISIT ANNUAL PCP TEAM CHRONIC DISEASE VISIT [facility] Start: 2006 BP CONTROLLED (<130/80) BP CONTROLLED (<130/80) [facility] Start: 2006 HEPATITIS C SCREENING HEPATITIS C SCREENING [facility] Start: 2006 Hepatitis C screening [facility] Start: 2006 HIV SCREENING HIV SCREENING [facility] Start: 2006 HIV screening HIV Screening [facility] Start: 2004 COVID-19 Vaccine (1) COVID-19 [facility]ine (1) [facility] Start: 12-18-2003 HIV screening HIV screen [facility] Start: 2000 Adult depression screening assessment DEPRESSION SCREENING [facility] Start: 2000 COVID-19 Vaccine (1) COVID-19 Vaccine (1) [facility]: Start: 2000 Depression Monitoring Depression Monitoring [facility] Start: 12-10-2000 Hepatitis B Vaccine (2 of 3 - 3-dose series) Hepatitis B Vaccine (2 of 3 - 3-dose series) [facility] Start: 1994 PNEUMOCOCCAL (1 - PCV) PNEUMOCOCCAL (1 - PCV) [facility] Start: 1994 Pneumococcal 0-64 years Vaccine (1 - PCV) Pneumococcal 0-64 years Vaccine (1 - PCV) [facility] Start: 1994 Pneumococcal vaccination [facility] Start: 1989 Varicella vaccine (1 of 2 - 2-dose childhood series) Varicella vaccine (1 of 2 - 2-dose childhood series) [facility] [employer] Start: 1988 HEPATITIS B (1 of 3 - 3-dose series) HEPATITIS B (1 of 3 - 3-dose series) [facility] Start: 1988 Hepatitis B Vaccine (1 of 3 - 3-dose series) Hepatitis B Vaccine (1 of 3 - 3-dose series) [facility] Start: 1988 Hepatitis C screening Hepatitis C screen [facility] [place] [place] Bacteria identified in Unspecified specimen by Aerobe culture [facility] Work Phone: Bacteria identified in Unspecified specimen by Anaerobe culture [facility] Work Phone: Basic Metabolic Pane l w/ Reflex to MG Basic Metabolic Panel w/ Reflex to MG Lab Routine Daily until discontinued starting 02/01/2021, 1 completed [employer] Work Phone: Comment on above: Daily until discontinued starting 2020, 1 completed End: 09-18-2023 Blood glucose - POCT Blood glucose - POCT Point of Care Testing Routine One Time for 1 Occurrences starting 09/18/2023 until 09/18/2023 [facility] [employer] Comment on above: One Time for 1 Occurrences starting 01/2024 until 09/18/2023 CANNABINOID CONF, UR CANNABINOID CONF, UR Lab Routine Panic disorder 01/04/2024 10:20 AM EDT [facility] Cell count, cerebrospinal fluid [facility] Work Phone: Cerebrospinal fluid examination [facility] Work Phone: Continuous pulse oximetry Pulse oximetry, continuous Respiratory Care Routine Every 4hr until discontinued starting 01/07/2021 [employer] Work Phone: Comment on above: Every 4hr until discontinued starting End: 10-26-2020 COVID-19 COVID-19 Lab Routine Preoperative testing 1 Occurrences starting 10/26/2020 until 10/26/2020 [employer] Work Phone: Comment on above: 1 Occurrences starting 10/26/2020 until 10/26/2020 COVID-19 [facility] Work Phone: End: 01-03-2021 COVID-19 COVID-19 Lab Routine Preop testing 1 Occurrences starting 01/03/2021 until 01/03/2021 [employer] Work Phone: Comment on above: 1 Occurrences starting 01/03/2021 until 01/03/2021 Evaluation of cerebrospinal fluid [facility] Work Phone: Fluid sample volume measurement [facility] Work Phone: Glucose [Mass/volume ] in Cerebral spinal fluid [facility] Work Phone: End: 09-18-2023 INITIATE PACU OXYGEN THERAPY PROTOCOL Initiate PACU Oxygen Therapy Protocol Respiratory Care Routine Continuous until discontinued starting 09/18/2023 WALKER VERGARA [facility] Comment on above: Continuous until discontinued starting 0 09/18/2023 Meningitis+Encephali ti s pathogens DNA and RNA panel - Cerebral spinal fluid by JOSÉ MIGUEL with non-probe detection [facility] Work Phone: Microscopic observation [Identifier] in Unspecified specimen by Gram stain [facility] Work Phone: End: 04-07-2025 MR Breast - left WO and W contrast IV MRI BREAST BX WO/W IVCON LEFT Radiology Routine Mass of upper outer quadrant of left breast 1 Occurrences starting 03/08/2024 until 04/07/2025 [facility] Work Phone: Comment on above: 1 Occurrences starting 03/08/2024 until 04/07/2025 End: 12-20-2023 Mra head w/o & w/contrast material MRV BRAIN WO/W IVCON Radiology Routine Idiopathic intracranial hypertension 1 Occurrences starting 11/20/2022 until 12/20/2023 [facility] Work Phone: Comment on above: 1 Occurrences starting 11/20/2022 until 12/20/2023 Nebulizer therapy HHN Treatment Respiratory Care Routine TID until discontinued starting 01/07/2021 [facility] Work Phone: Comment on above: TID until discontinued starting 01/08/20 21 Nucleated cells [#/volume] in Cerebral spinal fluid by Manual count [facility] Work Phone: Oxygen therapy [Minimum Data Set] [employer] Comment on above: Daily until discontinued starting 2020 Daily until disconti nued starting 01/07/2021 Daily until disconti nued starting 01/31/2021 Oxygen therapy [Minimum Data Set] Initiate Oxygen Therapy Protocol Respiratory Care Routine As Needed until discontinued starting 09/18/2023 [facility] [employer] Work Phone: Comment on above: As Needed until discontinued starting Patient Education [facility] Work Phone: Patient referral [facility] Work Phone: Phase I & II - meter ed glucose Phase I & II - metered glucose Point of Care Testing Routine As Needed until discontinued starting 09/28/2020 [facility] Comment on above: As Needed until discontinued starting End: 09-28-2020 , urine POCT , urine POCT Point of Care Testing Routine One Time for 1 Occurrences starting 09/28/2020 until 09/28/2020 [facility] Comment on above: One Time for 1 Occurrences starting 09/14 until 09/28/2020 End: 09-18-2023 , urine POCT , urine POCT Point of Care Testing Routine One Time for 1 Occurrences starting 09/18/2023 until 09/18/2023 [facility] [employer] Comment on above: One Time for 1 Occurrences starting 01/2024 until 09/18/2023 Protein [Mass/volume ] in Cerebral spinal fluid [facility] Work Phone: Red blood cell count [facility] Work Phone: SPECIMEN VALIDITY, URINE SPECIMEN VALIDITY, URINE Lab Routine Panic disorder 01/04/2024 10:20 AM EDT [facility] Spirometry panel Incentive pete metry Respiratory Care Routine Every 2hr while awake until discontinued starting 01/07/2021 [employer] Work Phone: Comment on above: Every 2hr while awake until discontinued starting 01/07/2021 Surgical Pathology Surgical Path ology Lab Routine Release Upon Ordering for 1 Occurrences starting 09/28/2020 [place], [place] Comment on above: Release Upon Ordering for 1 Occurrences starting 09/28/2020 [facility] c Immunizations Immunization Date Immunization Notes Care Provider Fa dragan 04-29-2021 SARS-CoV-2 (COVID-19 ) mRNA BNT-162b2 vax Aimee Walker [facility] 04-08-2021 SARS-CoV-2 (COVID-19 ) mRNA BNT-162b2 vax Aimee Walker [facility] 07-23-2020 influenza virus vaccine, unspecified formulation Eileen Manzano MD Work Phone: [facility] 07-09-2020 influenza nasal, unspecified formulation Elia Baires DO Work Phone: [facility] 07-09-2020 influenza virus vaccine, unspecified formulation Aimee Walker [facility] 07-09-2020 influenza, injectable, quadrivalent, preservative free Elia Baires DO Work Phone: [facility] 11-12-2000 hepatitis B vaccine, pediatric or pediatric/adolescent dosage Elia Baires DO Work Phone: [facility] 11-12-2000 measles, mumps and rubella virus vaccine Elia Baires DO Work Phone: [facility] NEGATED: Highlighted row has not occurred!07-21-2022 influenza virus vaccine, unspecified formulation Aieme Walker [facility] Payers Date Payer Category Payer Unknown 2023 Medicare [id number] 2021 Medicaid MEDICAID [facility] MEDICAID [id number] 2021-Present [phone] [address] [place] [address] Medicaid [id number] [id number] .3.330452.315 2021 Medicaid [id number]. 1.13.159.2.7 .[id number] 2021 Medicare HUMANA MEDICARE HUMANA MEDICARE PPO [id number] 2021-Present [phone] [address] [address] [place] [address] PPO [id number] 1.2.840.215486.1.13.159.2.7 .3.716971.315 2021 Medicare 1.2.840.678087. 1.13.159.2.7 .3.807516.315 2020 Medicare [id number] 1.2.840.221364.1.13.239.2.7 .3.393539.315 1988 Unknown [id number] 2.16.840.1.165596.3.579.2.7 32 1988 Unknown [id number] 2.16.840.1.492362.3.579.2.1 77 1988 Unknown [id number] 2.16.840.1.147536.3.579.2.3 56 1988 Unknown [id number] 2.16.840.1.258557.3.579.2.5 93 1988 Unknown [id number] 2.16.840.1.693658.3.579.2.5 93 1988 Unknown [id number] 2.16.840.1.151723.3.579.2.5 93 1988 Unknown [id number] 2.16.840.1.450641.3.579.2.5 93 1988 Unknown [id number] 2.16.840.1.875046.3.579.2.5 1988 Unknown [id number] 2.16.840.1.913386.3.579.2.5 1988 Unknown [id number] 2.16.840.1.740702.3.579.2.5 1988 Unknown [id number] 2.16.840.1.568512.3.579.2.5 93 1988 Unknown [id number] 2.16.840.1.868413.3.579.2.5 1988 Unknown [id number] 2.16.840.1.318107.3.579.2.5 1988 Unknown [id number] 2.16.840.1.302456.3.579.2.5 1988 Unknown [id number] 2.16.840.1.419134.3.579.2.1 1988 Unknown [id number] 2.16.840.1.725077.3.579.2.1 1988 Unknown [id number] 2.16.840.1.779434.3.579.2.1 1988 Unknown [id number] 2.16.840.1.323557.3.579.2.1 1988 Unknown [id number] 2.16.840.1.124877.3.579.2.1 1988 Unknown [id number] 2.16.840.1.791032.3.579.2.1 1988 Unknown [id number] 2.16.840.1.827234.3.579.2.1 1988 Unknown [id number] 2.16.840.1.607331.3.579.2.7 27 1988 Unknown [id number] 2.16.840.1.520894.3.579.2.7 27 1988 Unknown [id number] 2.16.840.1.464965.3.579.2.7 27 1988 Unknown [id number] 2.16.840.1.411596.3.579.2.7 27 1988 Unknown [id number] 2.16.840.1.688421.3.579.2.7 27 1988 Unknown [id number] 2.16.840.1.914587.3.579.2.7 27 1959 Medicaid [id number] 1.2.840.948874.1.13.239.2.7 .3.987304.315 1959 Private Health Insurance [id number] 1959 Self-pay [id number] Medicare Medicare [id number] Private Health Insurance Aetna MCR PFFS M [id number] Unknown [id number] 2.16.840.1.837521.3.579.2.5 31 Unknown [id number] 2.16.840.1.284101.3.579.2.5 31 Unknown [id number] 2.16.840.1.601447.3.579.2.5 31 Unknown [id number] 2.16.840.1.911089.3.579.2.5 31 Unknown [id number] 2.16.840.1.774709.3.579.2.5 31 Unknown [id number] 2.16.840.1.571269.3.579.2.5 31 Unknown [id number] 2.16.840.1.358187.3.579.2.5 31 Social History Date Type Detail Facility Start: 09-28-2020 End: 01-29-2022 Tobacco smoking status NHIS Former smoker [place] Start: 08-12-2022 End: 12-31-2023 History of tobacco use Current [place]oker [place] Start: 09-28-2020 End: 11-20-2022 Tobacco use and exposure Never used [place] Start: 09-28-2020 End: 11-20-2022 Alcohol intake Current drinker of alcohol (finding) [place] Start: 09-28-2020 End: 07-03-2022 History SDOH Alcohol Frequency 1 [place] Start: 09-28-2020 Alcohol Comment rare [place] Start: 1990 Sex Assigned At Not on file [place] Start: 12-16-2021 End: 02-06-2022 Exposure to SARS-CoV-2 (event) Not sure [place] End: 03-14-2020 History of tobacco use Cigarette Smoker [facility] Work Phone: Start: 09-28-2020 Alcohol Comment rare [facility] Work Phone: Start: 12-26-2021 End: 11-20-2022 Tobacco smoking status CTIS Smokes tobacco daily [facility] Start: 12-26-2021 End: 09-29-2022 Cigarettes smoked current (pack per day) - Reported 1 [facility] Start: 03-18-2010 History SDOH Alcohol Comment beer and wine once a month [facility] Start: 07-01-2021 End: 11-03-2022 Tobacco smoking status Heavy tobacco smoker (finding) [facility] Tobacco smoking status Never [facility] Start: 07-03-2022 End: 09-29-2022 Sex Assigned At Female [facility] Start: 1990 Sex Assigned At Female [facility] Start: 07-03-2022 History SDOH Alcohol Frequency 5 [facility] Start: 07-03-2022 History SDOH Alcohol Std Drinks 4 [facility] Start: 07-03-2022 History SDOH Social Connections Get Together 2 [facility] Start: 07-03-2022 History SDOH Social Connections Living 3 [facility] Do you belong to any clubs or organizations such as alevism groups, unions, fraMevvy or athletic groups, or school groups? No [facility] Are you now , , , , never or living with a partner? [facility] How often to you hav e a drink containing alcohol? 4 or more times a week [facility] How many standard dr inks containing alcohol do you have on a typical day? 7 to 9 [facility] How often do you hav e 6 or more drinks on 1 occasion? Daily or almost daily [facility] How hard is it for y ou to pay for the very basics like food, housing, medical care, and heating Not very hard [facility] Do you feel stress - tense, restless, nervous, or anxious, or unable to sleep at night because your mind is troubled all the time - these days [OSQ] To some extent [facility] (I/We) worried iqra er (my/our) food would run out before (I/we) got money to buy more. Sometimes true [facility] The food that (I/we) bought just didn't last, and (I/we) didn't have money to get more. Never true [facility] Start: 01-13-2022 Gender identity Identifies as female gender (finding) [facility] Start: 02-06-2022 Sexual orientation Heterosexual (finding) [facility] How often to you hav e a drink containing alcohol? Never [facility] Start: 12-10-2023 Tobacco smoking status NHIS Never smoked tobacco (finding) [facility] Do you feel stress - tense, restless, nervous, or anxious, or unable to sleep at night because your mind is troubled all the time - these days [OSQ] Only a little [facility] Functional Status Date Assessment Result Facility 03-08-2024 Functional Status N/A [facility] 07-02-2023 Functional Status N/A [facility] 01-15-2023 Functional Status N/A [facility] 11-21-2022 Functional Status No [facility] 11-03-2022 Functional Status N/A [facility] 09-24-2022 Functional Status N/A [facility] 08-22-2022 Functional Status N/A [facility] 08-18-2022 Functional Status N/A [facility] 08-12-2022 Functional status Patient at Baseline [facility] Work Phone: 08-08-2022 Functional Status N/A [facility] 07-21-2022 Functional Status N/A [facility] 04-21-2022 Functional Status N/A [facility] 04-20-2022 Functional Status N/A [facility] 04-03-2022 Functional Status N/A [facility] Mental Status Date Assessment Result Facility 08-12-2022 Cognitive function Cognitive Sta tus Patient at Baseline [facility] Work Phone: Clinical Notes 12-24-2020 to 05-30-2024 Orlando Hernandez MA - 05/30/2024 1:37 PM Orlando Radford MA - 05/30/2024 1:01 PM Lenora Alvarado RN - 05/30/2024 12:40 PM Lauren Avila LPN - 04/26/2024 3:43 PM EDTPatient Instructions Note Date & Type Note Facility 05-30-2024 Note HNO ID: [id number] Author: ORLANDO HERNANDEZ MA Service: ? Author Type: Silver Brazer Type: Progress Notes Filed: 05/30/2024 13:52 Note Text: POPULATION HEALTH NAVIGATION OUTREACH Action/FYI Patient called back and I scheduled her for a ED follow up with BRONZER in office. Also scheduled patient for est care appointment. Updated PCP field PER Navigation rules. ACM Reason for Outreach Community Monitoring/Network Navigator Pools AND Phone Line: ACM Patient Contacted: Spoke to patient/parent/or legal guardian Patient identified by name and : Yes Community Monitoring/Network Navigator Pools AND Phone Line actions taken: Patient scheduled: ER Follow-up Establish Care Appointment 05/31/2024 in [facility] with LISHA BIANCHI - ED follow up 07/01/2024 in [facility] with TEVIN CARSON - est care 08/05/2024 in [facility] with ROBERTO MCKEON of pancreatic cancer, Phx of pancreatic mass Action taken: Marked in OnBase for Schedulers PCP field updated Navigation Signature: Orlando Hernandez MA May 30, 2024 1:44 PM [facility] 05-30-2024 History of Present illness Narrative POPULATION HEALTH NAVIGATION OUTREACH Action/FYI Patient called back and I scheduled her for a ED follow up with BRONZER in office. Also scheduled patient for est care appointment. Updated PCP field PER Navigation rules. ACM Reason for Outreach Community Monitoring/Network Navigator Pools & Phone Line: ACM Patient Contacted: Spoke to patient/parent/or legal guardian Patient identified by name and : Yes Community Monitoring/Network Navigator Pools & Phone Line actions taken: Patient scheduled: ER Follow-up Establish Care Appointment 05/31/2024 in [facility] with LISHA BIANCHI - ED follow up 07/01/2024 in [facility] with TEVIN CARSON est care 08/05/2024 in [facility] with ROBERTO MCKEON of pancreatic cancer, Phx of pancreatic mass Action taken: Marked in OnBase for Schedulers PCP field updated Navigation Signature: Orlando Hernandez MA May 30, 2024 1:44 PM POPULATION HEALTH NAVIGATION OUTREACH Action/FYI Reason for review or outreach: Chart Review Edyta Priority Emergency Department Utilization REQUESTED ACTION/FYI: Please see ED Utilization summary below: A follow-up appointment is not noted in patient's record. We are forwarding this patient to [employer] Navigation to schedule a [facility] ED 05/23/24 PCP follow-up appointment. Thank you 1st attempt- Called and left a voicemail for patient to call me back directly. [employer] message sent Postponing for 2 days. [facility] Reason for Outreach Community Monitoring/Network Navigator Pools & Phone Line: [facility] Patient Contacted: Unable or unnecessary to reach patient: Left message [employer] message sent Navigation Signature: Orlando Hernandez MA May 30, 2024 1:01 PM Summary: ED Utilization review per request of payer AC EDYTA RN Patient identified by name and date of . Reason for review or outreach: Chart Review Edyta Priority Emergency Department Utilization REQUESTED ACTION/FYI: Please see ED Utilization summary below: A follow-up appointment is not noted in patient's record. We are forwarding this patient to Network Navigation to schedule a [facility] ED 05/23/24 PCP follow-up appointment. Thank you Exclusion Criteria - Does not meet exclusion criteria ED DIAGNOSES/REASON(S) FOR ED USE: [place] [facility] OTHER FINDINGS/SUMMARY: Unable to locate ED discharge summary in Care everywhere Patient Attributed To: QAE Payer: Mauricio HAMMOND Action Taken: Referrals/Routed: Population Health Navigation: Appointment. Router to COMMUNITY MONITORING PSS POOL [[id number]] Contact made with patient: No, Chart review only. Signature: Lenora KHALIL, RN, [facility] Primary Care Transitional Toddler Lead Teacher [facility] [phone] documented in this encounter [facility] 05-30-2024 Note HNO ID: [id number] Author: ORLANDO HERNANDEZ MA Service: ? Author Type: Silver Brazer Type: Progress Notes Filed: 05/30/2024 13:07 Note Text: POPULATION HEALTH NAVIGATION OUTREACH Action/FYI Reason for review or outreach: Chart Review Edyta Priority Emergency Department Utilization REQUESTED ACTION/FYI: Please see ED Utilization summary below: A follow-up appointment is not noted in patient's record. We are forwarding this patient to Network Navigation to schedule a [facility] ED 05/23/24 PCP follow-up appointment. Thank you 1st attempt- Called and left a voicemail for patient to call me back directly. [employer] message sent Postponing for 2 days. AC Reason for Outreach Community [employer]/Network Navigator Pools AND Phone Line: [facility] Patient Contacted: Unable or unnecessary to reach patient: Left message [employer] message sent Navigation Signature: Orlando Hernandez MA May 30, 2024 1:01 PM [facility] 05-30-2024 Note HNO ID: [id number] Author: LENORA YEE, RN Service: ? Author Type: Registered Nurse Type: Progress Notes Filed: 05/30/2024 12:45 Note Text: Summary: ED Utilization review per request of payer ACM EDYTA RN Patient identified by name and date of . Reason for review or outreach: Chart Review Edyta Priority Emergency Department Utilization REQUESTED ACTION/FYI: Please see ED Utilization summary below: A follow-up appointment is not noted in patient's record. We are forwarding this patient to Network Navigation to schedule a [facility] ED 05/23/24 PCP follow-up appointment. Thank you Exclusion Criteria - Does not meet exclusion criteria ED DIAGNOSES/REASON(S) FOR ED USE: [facility] OTHER FINDINGS/SUMMARY: Unable to locate ED discharge summary in Care everywhere Patient Attributed To: KERMIT Payer: Mauricio HAMMOND Action Taken: Referrals/Routed: Population Health Navigation: Appointment. Router to COMMUNITY [employer] US PSS POOL [[id number]] Contact made with patient: No, Chart review only. Signature: Lenora Yee MSN, RN, [facility] Primary Care Transitional Toddler Lead Teacher [facility] [phone] [facility] 05-30-2024 Note Patient Outreach ([facility]) SHAZIA CHOU ([id number]) 1990 F Date Time Provider Department 05/30/24 LENORA YEE [facility] During your visit today, we recorded the following information about you: Lenora Yee RN 05/30/2024 12:45 PM Signed ACM EDYTA RN Patient identified by name and date of . Reason for review or outreach: Chart Review Edyta Priority Emergency Department Utilization REQUESTED ACTION/FYI: Please see ED Utilization summary below: A follow-up appointment is not noted in patient's record. We are forwarding this patient to [employer] to schedule a [facility] ED 05/23/24 PCP follow-up appointment. Thank you Exclusion Criteria - Does not meet exclusion criteria ED DIAGNOSES/REASON(S) FOR ED USE: [place] [facility] OTHER FINDINGS/SUMMARY: Unable to locate ED discharge summary in Care everywhere Patient Attributed To: QAE Payer: Mauricio HAMMOND Action Taken: Referrals/Routed: Population Health Navigation: Appointment. Router to [facility] [[phone]] Contact made with patient: No, Chart review only. Signature: Lenora KHALIL, RN, [facility] Primary Care Transitional Toddler Lead Teacher [facility] [phone] Orlando Hernandez MA 05/30/2024 1:07 PM Addendum POPULATION HEALTH NAVIGATION OUTREACH Action/FYI Reason for review or outreach: Chart Review Edyta Priority Emergency Department Utilization REQUESTED ACTION/FYI: Please see ED Utilization summary below: A follow-up appointment is not noted in patient's record. We are forwarding this patient to [employer] [facility] to schedule a [facility] ED 05/23/24 PCP follow-up appointment. Thank you 1st attempt- Called and left a voicemail for patient to call me back directly. Mychart message sent Postponing for 2 days. ACM Reason for Outreach Community Monitoring/Network Navigator Pools AND Phone Line: ACM Patient Contacted: Unable or unnecessary to reach patient: Left message [employer] message sent Navigation Signature: Orlando Hernandez MA May 30, 2024 1:01 PM Orlando Hernandez MA 05/30/2024 1:52 PM Addendum POPULATION HEALTH NAVIGATION OUTREACH Action/FYI Patient called back and I scheduled her for a ED follow up with BRONZER in office. Also scheduled patient for est care appointment. Updated PCP field PER Navigation rules. ACM Reason for Outreach Community Monitoring/Network Navigator Pools AND Phone Line: ACM Patient Contacted: Spoke to patient/parent/or legal guardian Patient identified by name and : Yes Community Monitoring/Network Navigator Pools AND Phone Line actions taken: Patient scheduled: ER Follow-up Establish Care Appointment 05/31/2024 in [facility] with LISHA BIANCHI - ED follow up 07/01/2024 in [facility] with TEVIN CARSON - est care 08/05/2024 in [facility] with ROBERTO MCKEON - Fhx of pancreatic cancer, Phx of pancreatic mass Action taken: Marked in OnBase for Schedulers PCP field updated Navigation Signature: Orlando Hernandez MA May 30, 2024 1:44 PM Allergies As of Date: 05/30/2024 Noted Allergy Reaction ARIPIPRAZOLE 08/19/2022 1 - Mental Status Change 14 - Other: See Comments 16 - Unknown BUPROPION 07/16/2021 16 - Unknown COCONUT 11/20/2022 7 - Swelling Date Reviewed: 03/08/2024 Reviewed by: Sofia Benavidez, RN - Fully Assessed Reason for Visit: ACM EDYTA RN [[id number]] Cmt: ED Utilization review per request of payer Prescriptions as of 05/30/2024 - naltrexone 50 mg tablet Take 1 [...] mg by mouth daily at bedtime. - uicktshuyrhf-rbx-jvxo-FA-vit K (BARIATRIC MULTIVITAMINS) 45 mg iron- 800 mcg-120 mcg cap Take by mouth. Problem List As Of Date 05/30/2024 Noted Resolved Poor growth, affecting management of moth*07/03/2008 03/08/2024 Idiopathic intracranial hypertension [G93.2] 11/20/2022 Primary hypertension [I10] 11/20/2022 03/08/2024 Depression [F32.A] 11/20/2022 Hx of gastric bypass [Z98.84] 11/20/2022 H/O foot surgery [Z98.890] 11/20/2022 Bipolar affective d (more content not included)... [facility] 05-12-2024 Note HNO ID: [id number] Author: ?, ?, ? Service: ? Author Type: ? Type: Progress Notes Filed: 05/12/2024 17:42 Note Text: MCM sent to pt advising her that her Breast MRI has still not been scheduled. Pancreas was completed. Kimberli Malave PSS [facility] 04-26-2024 History of Present illness Narrative Outreach message sent documented in this encounter [facility] 04-26-2024 Note HNO ID: [id number] Author: LAUREN CAPELLAN LPN Service: ? Author Type: LICENSED NURSE Type: Progress Notes Filed: 04/26/2024 15:43 Note Text: Outreach message sent [facility] 04-26-2024 Note Patient Outreach ([facility]) SHAZIA CHOU ([id number]) 1990 F Date Time Provider Department 04/26/24 ELIA BAIRES [facility] During your visit today, we recorded [...] mg by mouth daily at bedtime. - wlqjwrtoqjrh-fqm-uzrv-FA-vit K (BARIATRIC MULTIVITAMINS) 45 mg iron- 800 [...] Encounter Status:Closed by LAUREN CAPELLAN on 04/26/24 [facility] 03-08-2024 Hospital Discharge instructions Patient Education [...] Follow these instructions at home: Medicines Take eoix-hsv-fgfilad and prescription medicines only as told by your health care provider. Ask your health care provider if the medicine prescribed to you: ?Requires you to avoid driving or using heavy machinery. ?Can cause constipation. You may need to take these actions to prevent or treat constipation: ?Drink enough fluid to keep your urine pale yellow. ?Take ncwh-nsa-olqwjks or prescription medicines. ?Eat foods that are [...] provider. Document Revised: 12/08/2022 Document Reviewed: 01/24/2020 [employer] Patient Education 2022 [employer]int. 03/08/2024 15:36:59 Head Injury, Adult Head Injury, [...] Ask your health care provider for a qgxq-bk-qomx plan for gradually returning to activities. 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 Have them watch for any new or worsening problems. General instructions Take zqnd-zst-effvvkh and prescription medicines only as told by [...] provider. Document Revised: 07/13/2020 Document Reviewed: 07/13/2020 [employer] Patient Education 2022 Vint. 03/08/2024 15:36:59 Muscle Strain Muscle Strain A [...] is not too tight. General instructions Take tgcx-din-eaimcgy and prescription medicines only as told by [...] provider. Document Revised: 11/18/2021 Document Reviewed: 11/18/2021 [employer] Patient Education 2022 Vint. Follow Up Care 03/08/2024 13:07:25 With:David Zazueta Address: [address], [address] [place] [address] [phone] Business (1) When:03/11/2024 15:24:14 With:Jennie Ames Address: [address] [place] [address]- Business (1) When:Within 3 Day(s) [facility] 03-08-2024 History of Present illness Narrative [...] IV SITE APPEARANCE: Clean,Dry and Intact SIGNATURE: Sofai Benavidez RN PATIENT NAME: Shazia Chou DATE: [...] PATIENT PRESENTS WITH AN IMPLANTABLE OR ATTACHED CPA TAX: No RADIOLOGY DEPARTMENT: MR; Exam(s) Completed: Body: Pancreas/Biliary PERIPHERAL IV DATA: Site assessment: Clean,Dry and Intact, Site disposition Discontinued SIGNED BY: MARIXA Tovar March 08, 2024 10:35 AM documented in this encounter [facility] 03-08-2024 Note HNO ID: [id number] Author: MIRLANDE DIAZ MRI Tech Service: Radiology Author Type: Licensed Guide Type: Progress Notes Filed: 03/08/2024 10:36 Note [...] PATIENT PRESENTS WITH AN IMPLANTABLE OR ATTACHED CPA TAX: No RADIOLOGY DEPARTMENT: MR; Exam(s) Completed: Body: Pancreas/Biliary PERIPHERAL IV DATA: Site assessment: Clean,Dry and Intact, Site disposition Discontinued SIGNED BY: MARIXA Tovar March 08, 2024 10:35 AM [facility] 03-08-2024 Note HNO ID: [id number] Author: SOFIA BENAVIDEZ RN Service: Nursing Author [...] DATE: March 08, 2024 TIME: 10:01 AM [facility] 03-08-2024 Instructions Elia Baires DO - 03/08/2024 8:47 AM EDT 1) Schedule appointment with Austin Mata to discuss Adipex. 2) Schedule MRI of breast 3) I can refill the klonopin as needed. 4) Try steroid as needed twice daily 5) Follow-up in [address] Carson to establish care documented in this encounter [facility] 03-08-2024 Note HNO ID: [id number] Author: BAIRES, ELIA, DO Service: ? Author Type: Physician Type: [...] was able to establish with psychiatry at [facility]. Says they stopped her Rexulti and switch to Lamictal 75 mg daily. Says this has dramatically improved her symptoms. Currently taking duloxetine 60 mg twice daily and trazodone 50 mg at bedtime. She says that she has only needed to use her clonazepam a few times a week. H (more content not included)... [facility] 03-08-2024 History of Present illness Narrative [...] was able to establish with psychiatry at [facility]. Says they stopped her Rexulti and switch [...] updated today in the History tab of testbirds. REVIEW OF SYSTEMS: All other reviewed and [...] Elia Baires DO documented in this encounter [facility] 01-04-2024 Instructions Elia Baires DO - 01/04/2024 10:16 AM EDT 1) Give urine sample today. 2) Placed lab orders. Fast for 12 hours then get labs. 3) I would follow-up with your psychiatrist in January 4) Physical in 1-2 months. documented in this encounter [facility] 01-04-2024 Note HNO ID: [id number] Author: ELIA BAIRES DO Service: ? Author [...] She says that she is originally from [facility] however came up to here today [...] to establish with a new psychiatrist at [facility] in [place]. She also sees a counselor weekly. Current [...] psychosis or maryam. Dr. Elia Baires, DO [facility] 01-04-2024 History of Present illness Narrative [...] She says that she is originally from [facility] however came up to here today [...] to establish with a new psychiatrist at [facility] in [place]. She also sees a counselor weekly. Current [...] Elia Baires DO documented in this encounter [facility] 09-18-2023 Hospital Discharge instructions Gamaliel [...] questions, PLEASE call your doctor or the [facility] Weight Management center at documented in this encounter [facility] 09-16-2023 History of Present illness Narrative PAT phone call for /EGD completed with pt. Date/time/location (entrance C) of surgery/procedure verified with pt. NPO after [place] status verified with pt. 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 Instructed pt to take a shower the AM of surgery/procedure and to avoid lotions, creams, jewelry. Encouraged pt to avoid artificial nails and/or nailpolish. Instructed pt to take BP meds with a small sip of water prior to procedure/surgery. documented in this encounter [facility] 09-15-2023 Note HNO ID: [id number] Author: Rahul Godinez DO Service: ? Author Type: Fellow Type: Progress Notes Filed: 09/15/2023 12:00 PM Note Text: [facility] Multidisciplinary Egbegi-Twxuzzdab-Pcyzest AND Upper GI Case Conference -- Consensus Note -- Conference Date: 09/15/2023 Case reviewed with physicians from GI, Surgery, AND Radiology services: -- Surgeons - Cristal Rodriguez Augustin, Naffouje, Visioni, and Gaurang -- Gastroenterologists - Brando Sinclair -- Radiologist - [place] Issue(s) Question(s): 32 year old female with [...] months Rahul Godinez DO HPB Surgical Fellow [facility] 08-13-2023 Evaluation note Encounter Date Diagnosis Assessment Notes Jul, Pancreatic cyst (ICD-10 - K86.2) [facility] Other 10-25-2023 Evaluation note* Encounter Date Diagnosis [...] stop smoking. Jun, Smoker (ICD-10 - F17.200) [facility] Other 09-27-2023 NoteHNO ID: [id number] Author: Eileen Manzano MD Service: ? Author Type: Physician Type: Progress Notes Filed: 06/10/2023 3:39 PM Note Text: [facility] General Neurology Follow Up / Established Virtual Visit I have communicated my name and active licensure. The patient's identity and physical location were verified at the time of this visit. Either the patient or their legal applications sales representative has been informed of the [...] due to congenital deformity, seen in the [facility] for: Idiopathic intracranial [...] due to congenital deformity, seen in the [facility] for: 1. Idiopathic [...] she agreed. She needs to follow with brass finisher every 6 months. In some patients with [...] her eyes. She has never seen an brass finisher. CSF protein 24, Glu 55, Pro 28, [...] cognition, memory, speech. Cr (more content not included)...[id number] Miscellaneous Notes * Telephone Encounter - Bunny [...] A DAY IN A WEEK Pharmacy Name: [facility] Pharmacy Phone #: [phone] Fabby Cassidy [facility] Evaluation + Plan note Diagnostic Tests Pending * Zinc Level 03/19/23 * PTH Intact 03/19/23 * Vitamin A Level 03/19/23 * Vitamin B1 03/19/23 Future Scheduled Tests Laboratory* CBC w/ Auto Diff 07/21/22 Radiology* MA Mamm Screen w/CAD if perf and 3D Tanmay 04/21/22 [facility]05-04-2023 Hospital Discharge instructions Patient Education 01/15/2023 [...] Follow these instructions at home: Medicines Take vkcz-ibb-rzjqghu and prescription medicines only as told by [...] provider. Document Revised: 11/14/2021 Document Reviewed: 11/14/2021 [employer] Patient Education 2022 Vint. Follow Up Care 01/15/2023 10:48:45 With:Jennie Ames Address: [address] [place] [address] [place] [address] , [address] [address] Business (1) When:01/18/2023 13:32:37 [facility]05-04-2023 Evaluation + Plan noteExtracted from: Title:ED Note Author:Bteo Shea PA-C te:01/15/23 Chest pain (R07.9: Chest [...] w/CAD if perf and 3D Tanmay 04/21/22 [facility]03-31-2023 Miscellaneous Notes* Telephone Encounter - Bunny Durbin RN - 12/12/2022 3:03 PM EDT Spoke with patient and informed that per [facility] pharmacy, there are remaining refills on [...] A DAY IN A WEEK Pharmacy Name: [facility] Pharmacy Phone #: [phone] Fabby Cassidy [facility] Hospital Discharge instructions Patient Education 12/05/2022 12:15:12 Post Op Patient Instructions - FT (CUSTOM) 12/05/2022 12:15:12 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 [facility]03-24-2023 Evaluation + Plan noteExtracted from: Title:ANES Post-operative Note - General Author: Vu Maria Jr., DO Date:12/05/22 Plan Transfer/Discharge: Transfer/Discharge Discharge when meets criteria ( From PACU to Ambulatory Surgery Unit, and To home ). Extracted from: Title:ANES Pre-operative Note - Adult Author:Vu Chowdhury Jr., DO Date:12/05/22 Plan [place] [employer] Anesthesiologists (ASA) physical status classification: Class II. Anesthetic Preoperative Plan: Anesthesia General. Future Appointments Appointment Date:01/02/2023 10:00:00 AM Scheduled Provider:Nakia Shah Location:[facility] Appointment Type: Open Future Scheduled Tests Laboratory* CBC w/ Auto Diff 07/21/22 Radiology* MA Mamm Screen w/CAD if perf and 3D Tanmay 04/21/22 [facility]03-09-2023 NoteHNO ID: [id number] Author: Eileen Manzano MD Service: ? Author Type: Physician Type: Progress Notes Filed: 11/20/2022 10:33 AM Note Text: [facility] General Neurology New Patient Evaluation Consulting Provider: [...] due to congenital deformity, seen in the [facility] for: Idiopathic intracranial [...] her eyes. She has never seen an brass finisher. CSF protein 24, Glu 55, Pro 28, [...] due to congenital deformity, seen in the [facility] for: 1. Idiopathic [...] she agreed. She needs to follow with brass finisher every 6 months. In some patients with [...] --start acetazolamide (diamox 500m (more content not included)...[facility] [id number] Instructions* Patient Instructions* Eileen Manzano MD - [...] up in 2-4 months [facility] History of Present illness Narrative* Eileen Manzano MD - 11/20/2022 7:57 AM EST Images from the original note were not included. [facility] New Patient Evaluation [...] due to congenital deformity, seen in the [facility] for: Idiopathic intracranial [...] her eyes. She has never seen an brass finisher. CSF protein 24, Glu 55, Pro 28, [...] due to congenital deformity, seen in the [facility] for: 1. Idiopathic [...] she agreed. She needs to follow with brass finisher every 6 months. In some patients with [...] Take 40 mg by mouth once daily. rmonzvnkyjof-int-qeaq-FA-vit K (BARIATRIC MULTIVITAMINS) 45 mg iron- 800 [...] % Lymph% 20 15.9 - 47.3 % [place]% 6 0.0 - 12.0 % Eosin% 3 0.0 - 6.6 % Baso% 1 0.0 - 1.2 % Abs Neut (ANC) 7.64 (H) 1.45 - 7.50 k/uL Abs Lymph 2.18 1.00 - 4.00 K/uL Abs [place] 0.65 0.00 - 0.86 k/uL Abs Eosin [...] which included preparing to see the patient, mjvv-yo-eoyr patient care, completing clinical documentation, obtaining and/or reviewing separately obtained history, performing a medically appropriate examination, counseling and educating the pat ient/family/caregiver, ordering medications, tests, or procedures, independently interpreting results (not separately reported), communicating results to the patient/family/caregiver, and care coordination (not separately reported). Eileen Manzano MD [facility] Hospital Discharge instructions Patient Education [...] height. This can be done either in [place]onian ([place] or metric measurements. Note that charts are available to help you find your BMI quickly and easily without having to do these calculations yourself. To calculate your BMI in [place]onian ([place] measurements, your health care provider will: [...] medical problems. BMI can be measured using Cam[place]onian measurements or metric measurements. To interpret your [...] 05/12/2005 Document Revised: 08/13/2018 Document Reviewed: 07/14/2018 [employer] Patient Education 2020 Vint. 11/03/2022 13:28:26 Tobacco Use Disorder Tobacco Use [...] reduces withdrawal symptoms. NRT is available as: ?Mofu-txn-aowznmk gums, lozenges, and skin patches. ?Prescription mouth [...] recovery for many people. General instructions Take vyyi-gou-jspiepu and prescription medicines only as told by your health care provider. Check with your health care provider before taking any new prescription or mecc-yrq-ogrwbel medicines. Decide on a friend, family member, or smoking quit-line (such as 1-078-MPVG-NOW in the [place] that you can call [...] 05/06/2005 Document Revised: 08/18/2018 Document Reviewed: 08/18/2018 [employer] Patient Education 2020 Vint. 11/03/2022 13:28:23 Alcohol Abuse and Dependence Information, [...] find support Your health care provider. [employer]: www.smartrecovery.org Therapy and support groups Local treatment centers or chemical dependency counselors. Local AA groups in your community: www.aa.org Where to find more information Centers for Disease Control and Prevention: www.cdc.gov National Fate on Alcohol Abuse and Alcoholism: www.niaaa.nih.gov Alcoholics [...] 08/25/2017 Document Revised: 12/20/2019 Document Reviewed: 11/08/2019 [employer] Patient Education 2020 [employer] 11/03/2022 13:28:19 BMI for Adults BMI [...] height. This can be done either in [place]onian ([place] or metric measurements. Note that charts are available to help you find your BMI quickly and easily without having to do these calculations yourself. To calculate your BMI in [place] ([place] measurements, your health care provider will: [...] medical problems. BMI can be measured using Cameroonian measurements or metric measurements. To interpret your [...] 05/12/2005 Document Revised: 08/13/2018 Document Reviewed: 07/14/2018 [employer] Patient Education 2020 Vint. 10/27/2022 11:56:27 Alcohol Abuse and Dependence Information, [...] for Disease Control and Prevention: www.cdc.gov National Fate on Alcohol Abuse and Alcoholism: www.niaaa.nih.gov Alcoholics [...] 08/25/2017 Document Revised: 12/20/2019 Document Reviewed: 11/08/2019 [employer] Patient Education 2019 Vint. Follow Up Care 10/15/2022 11:28:56 With:Charisse TEIXEIRA, Nakia Brock Address: [address], [place] [address]- When:Within 2 Month(s) Comments:f/u smoking cessation and BP [facility] 01-11-2023 Hospital Discharge instructions Patient [...] reduces withdrawal symptoms. NRT is available as: ?Nxip-vfm-dsdbysd gums, lozenges, and skin patches. ?Prescription mouth [...] recovery for many people. General instructions Take rqyb-gui-grgnfbv and prescription medicines only as told by your health care provider. Check with your health care provider before taking any new prescription or jmky-xjs-kaikqtr medicines. Decide on a friend, family member, or smoking quit-line (such as 2-721-VJQL-NOW in the [place] that you can call [...] 05/06/2005 Document Revised: 08/18/2018 Document Reviewed: 08/18/2018 [employer] Patient Education 2020 Vint. 09/24/2022 07:23:47 BMI for Adults BMI for [...] height. This can be done either in [place]onian ([place] or metric measurements. Note that charts are available to help you find your BMI quickly and easily without having to do these calculations yourself. To calculate your BMI in [place]onian ([place] measurements, your health care provider will: [...] medical problems. BMI can be measured using Cameroonian measurements or metric measurements. To interpret your [...] 05/12/2005 Document Revised: 08/13/2018 Document Reviewed: 07/14/2018 [employer] Patient Education 2020 Vint. 09/24/2022 07:23:45 Alcohol Use Disorder Alcohol Use [...] centers. Follow these instructions at home: Take xhpk-qjl-ogwqtzh and prescription medicines only as told by [...] 10/08/2005 Document Revised: 08/13/2018 Document Reviewed: 05/28/2017 [employer] Patient Education 2020 Vint. 09/24/2022 07:23:42 Borderline Personality Disorder, Adult Borderline [...] with BPD should do these things: Take bexv-bil-twwtcij and prescription medicines only as told by [...] important. Where to find more information National [place] on Mental Illness: www.marivel.org U.S. National Fate of Mental Health: www.nimh.nih.gov Contact a health [...] 12/16/2011 Document Revised: 08/13/2018 Document Reviewed: 11/05/2017 [employer] Patient Education 2020 Vint. 09/24/2022 07:23:39 Managing Bipolar Disorder Managing Bipolar [...] Follow these instructions at home: Medicines Take cujh-bgy-npjdsse and prescription medicines only as told by your health care provider or pharmacist. Ask your pharmacist what lvar-pqm-wttrgfa cold medicines you should avoid. Some medicines [...] a problem, search for a local or critical access hospital mental health care center. Public mental [...] 12/23/2019 Document Reviewed: 12/31/2017 Elsevier Patient Education 2019 [employer] Follow Up Care 09/16/2022 13:23:11 With:Aimee Walker CNP Address: [address] [place] [address] [phone] When:3 months [facility] 12-09-2022 Hospital Discharge instructions Patient Education 08/22/2022 11:12:56 Tension Headache, Adult, Riru-xc-Uvkl Tension Headache, Adult A tension headache is pain, pressure, or aching in your head. Tension headaches can last from 30 minutes to several days. Follow these instructions at home: Managing pain Take vfxu-rxh-rvuualv and prescription medicines only as told by [...] 11/25/2010 Document Revised: 08/13/2018 Document Reviewed: 12/11/2017 [employer] Patient Education 2020 Vint. Follow Up Care 08/14/2022 12:38:29 With:Rita SNOWDEN, IGGY Roberson, PED Address: [address] [place] [address] [place] [address] When:1 month only if needed Comments:40 mins [facility] 12-05-2022 Hospital Discharge instructions Patient [...] feet clean and dry. General instructions Take atgx-xgk-rxrdeke and prescription medicines only as told by [...] 09/26/2016 Document Revised: 06/16/2019 Document Reviewed: 06/16/2019 [employer] Patient Education 2020 Vint. 08/18/2022 19:56:48 Foot Sprain Foot Sprain A [...] fully hardened. This may takeseveral hours. Take uwyi-fac-qioifqd and prescription medicines only as told by [...] 02/20/2003 Document Revised: 09/04/2018 Document Reviewed: 09/04/2018 [employer] Patient Education 2020 Vint. 08/18/2022 19:56:48 Elastic Bandage and RICE Therapy [...] limityour activities and whether you should start wtpxn-rc-poctjt exercises for your injury. Ice Ice your [...] 02/20/2003 Document Revised: 05/21/2018 Document Reviewed: 05/21/2018 Elsevier Patient Education 2020 Vint. Follow Up Care 08/18/2022 17:21:15 With:Hilton Gillis Address: [address] [place], [place] [id number]- Business (1) When:08/21/2022 19:10:21 With:Aimee Walker Address:Unknown When:Within 3 Day(s) [facility] Progress note Author Lizzeth Malave [facility] August 12, 2022 10:46am Note Date/Time August 12, 2022 10:45am [facility] [address] [place] [address] Hospitalist Progress Note Signed Patient: Shazia Chou MR#: [id number] : 1990 Acct:[id number] Age/Sex: 31 / F Adm Date: 2 Loc: Room: [address] [place] [address] Type: ADM INOo Attending Dr: Lizzeth Malvae MD Copies to: ~ Date of Service: 08/12/2022 Subjective Subjective Narrative: Shazia Chou is a 31yo F. She was transferred here last night from [facility] with worsening headache and blurry vision [...] Flu Vac Quad (36month+)Pf 0.5 Ml Syringe [id number] IM 08/13/22 09:01 .ONCE ONE Omeprazole 20 [...] <Electronically signed by Lizzeth Malave MD> 08/12/22 [facility] Work Phone: 1(642) 552-225311-29-2022 Consult note Author Kenrick Lee [facility] August 12, 2022 4:21pm Note Date/Time August 12, 2022 8:13am [facility] [address] [place] [address] Neurology Consult Note Signed Patient: Shazia Chou MR#: [id number] : 1990 Acct:[id number] Age/Sex: 31 / F Adm Date: 2 Loc: 4N Room: [address] [place] [address] Type: ADM INOo Attending Dr: Lizzeth Malave MD Copies to: DO Jennie Wise ANP-C Lizzeth Malave MD~ HPI Consult Date: 08/12/22 Guest Room Attendant: ASTON Bro with Dr Lee Reason for consult: Headache, blurred vision Consult Narrative HPI: Patient is a 31-year-old female with medical history of bipolar, personality disorder, depression, and tobacco use in addition to 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 She has been seen in neurological consultation with request of the hospital service for headache and blurred vision. Patient initially presented to [facility] and was transferred to [facility] for [facility]. She was seen in the [place] [facility] on 08/08/2022 with similar symptoms and [...] this is when she called EMS. At [facility] she had a CT scan of [...] extremity from prior surgery CEREBELLAR EXAM: * Sjbuuc-gs-mfop and alternating movements are intact and normal in bilateral upper extremities * Mcph-oa-nqnp and alternating movements are intact and normal [...] puncture based on these results. Evaluation at [facility]: * CT scan head is nonacute. [...] once daily). Okay for discharge now from [facility]. Documented By: EDINSON Dias [id number] Signed By: <Electronically signed by EDINSON Niño> 08/12/22 0958 <Electronically signed by Kenrick Lee DO> 08/12/22 1621 [facility] Work Phone: 1(236) 863-109711-28-2022 History and physical note Author Sangeetha Peña [facility] August 11, 2022 9:43pm Note Date/Time August 11, 2022 9:08pm [facility] [address] [place] [address] Hospitalist H&P Signed Patient: Shazia Chou MR#: [id number] : 1990 Acct:[id number] Age/Sex: 31 / F Adm Date: 2 Loc: 4 Room: [id number] Type: ADM IN Attending Dr: Erin Barahona MD Copies to: MD Erin Mcwilliams MD~ HPI DATE OF EXAMINATION: 08/11/22 CHIEF COMPLAINT: Headache with blurry vision HISTORY OF PRESENT ILLNESS: Patient is a pleasant 31-year-old female with history of borderline personality disorder, bipolar disorder and depression. She was accepted by daytime hospitalist when contacted by [place] [facility] physician due to concern for headache [...] pain or dysuria. She was seenin the [place] [facility] on 08/08 with similar symptoms. She was discharged home withadvice for outpatient neurology follow-up. Patient continues to [...] vision: Plan Patient has been transferred from [facility] when she presented with complaint of headache and blurry vision. During my evaluation her blood pressure is in 115 systolic and complaining of headache with blurry vision. Denies diplopia with no pain in extraocular movement. There is concern for possible idiopathic intracranial hypertension and patient has been transferred to [facility] for further management and neurology evaluation. Will [...] By: <Electronically signed by Sangeetha Peña MD> 08/11/222142 [facility] Work Phone: 1(705) 539-891111-25-2022 Evaluation + Plan noteExtracted from: Title:ED Note Author:Bakari Chester DO Date:10/08/21 Asymptomatic hypertension (I 10: Essential (primary) hypertension) Headache (R51.9: Headache, unspecified) Orders: APAP/butalbital/caffeine, 1 cap(s), Oral, q4hr for headache, 12 cap(s), Refill(s) 0, [facility]/pharmacy #[id number], 162, cm, 08/08/22 9:11:00 EST, Height/Length Dosing, 83.1, kg, 08/08/22 9:11:00 EST, Weight Dosing ondansetron, 4 mg = 1 tab(s), Oral, q8hr, PRN Nausea/Vomiting, # 12 tab(s), Refills(s) 0, Pharmacy: [facility]/pharmacy #[id number], 162, cm, 08/08/22 9:11:00 EST, Height/Length Dosing, 83.1, kg, 08/08/22 9:11:00 EST, Weight Dosing Automated Diff Basic Metabolic Panel Beta hCG Qual CBC w/ Auto Diff CT Head or Brain w/o Contrast eGFR Influenza A&B Ag Rapid [place] [place] UA With Cult Reflex Future Scheduled Tests Laboratory* CBC w/ Auto Diff 07/21/22 Radiology* MA Mamm Screen w/CAD if perf and 3D Tanmay 04/21/22 [facility]11-25-2022 Hospital Discharge instructions Patient Education 08/08/2022 [...] health care provider to lose weight. Take baqe-axh-sapswny and prescription medicines only as told by [...] 11/09/2002 Document Revised: 08/13/2018 Document Reviewed: 07/22/2017 [employer] Patient Education 2020 Vint. Follow Up Care 08/08/2022 09:04:11 With:Kenrick Lee Address: [address] [place] [address] [facility] (1) When:08/11/2022 11:38:22 Comments:Follow-up with Dr. Lee [...] you develop any new or worsening symptoms. [facility]11-07-2022 Evaluation + Plan note Future Scheduled Tests Laboratory* CBC w/ Auto Diff 07/21/22 Radiology* MA Mamm Screen w/CAD if perf and 3D Tanmay 04/21/22 [facility] 11-07-2022 Evaluation + Plan note Future Scheduled Tests Laboratory* CBC w/ Auto Diff 07/21/22 [facility]11-07-2022 Hospital Discharge instructions Patient Education 07/21/2022 [...] Follow these instructions at home: Medicines Take qgfa-bwv-zgzxbah and prescription medicines only as told by your health care provider or pharmacist. Ask your pharmacist what orhg-sko-zzyecde cold medicines you should avoid. Some medicines [...] a problem, search for a local or critical access hospital mental health care center. Public mental [...] 12/31/2017 Document Revised: 12/23/2019 Document Reviewed: 12/31/2017 [employer] Patient Education 2020 [employer] 07/21/2022 11:21:57 Tobacco Use Disorder Tobacco [...] reduces withdrawal symptoms. NRT is available as: ?Nssp-twj-fevechq gums, lozenges, and skin patches. ?Prescription mouth [...] recovery for many people. General instructions Take amss-aea-kqrtzyn and prescription medicines only as told by your health care provider. Check with your health care provider before taking any new prescription or frpx-osw-umtpknp medicines. Decide on a friend, family member, or smoking quit-line (such as 3-352-AFSZ-NOW in the [place] that you can call [...] 05/06/2005 Document Revised: 08/18/2018 Document Reviewed: 08/18/2018 [employer] Patient Education 2020 Vint. 07/21/2022 11:21:55 BMI for Adults BMI for [...] height. This can be done either in [place]onian ([place] or metric measurements. Note that charts are available to help you find your BMI quickly and easily without having to do these calculations yourself. To calculate your BMI in Cam[place]onian ([place] measurements, your health care provider will: [...] medical problems. BMI can be measured using Cameroonian measurements or metric measurements. To interpret your [...] 05/12/2005 Document Revised: 08/13/2018 Document Reviewed: 07/14/2018 [employer] Diabetes Patient Education 2020 Vint. 07/21/2022 11:21:53 Leukocytosis Leukocytosis Leukocytosis means that [...] Follow these instructions at home: Medicines Take irgu-php-tqznnfn and prescription medicines only as told by [...] 08/19/2012 Document Revised: 05/26/2019 Document Reviewed: 05/26/2019 [employer] Patient Education 2020 Vint. Follow Up Care 07/18/2022 10:46:12 With:Aimee Walker CNP Address: When: only if needed [facility] 11-04-2022 Miscellaneous Notes* Telephone Encounter - Cat Rojo LPN - 07/18/2022 11:04 AM EDT Call placed to patient, no answer. Left message for patient to proceed with nicotine testing prior to scheduling. Please transfer to plastic surgery nurse if patient returns call with questions. documented in this encounterTri[facility] Evaluation + Plan note Future Scheduled Tests Radiology* MRI Breast w/o and w/ Contrast, Left 05/13/22 * MA Mamm Screen w/CAD if perf and 3D Tanmay 04/21/22 [facility] General [facility] [place] 08-30-2022 Hospital Discharge instructions Patient Education 05/13/2022 [...] food choices, such as grocery stores and [employer]. What are the signs or symptoms? The [...] and how much exercise you get. Take hnez-qar-wmwuxeg and prescription medicines only as told by [...] 10/08/2005 Document Revised: 05/05/2019 Document Reviewed: 05/05/2019 [employer] Patient Education 2019 Vint. [facility] [place] [id number] Evaluation + Plan note Future Scheduled Tests Radiology* MA Mamm Screen w/CAD if perf and 3D Tanmay 04/21/22 [facility]08-08-2022 Hospital Discharge instructions Patient Education 04/21/2022 [...] height. This can be done either in Cam[place]onian ([place] or metric measurements. Note that charts are available to help you find your BMI quickly and easily without having to do these calculations yourself. To calculate your BMI in Cam[place]onian ([place] measurements, your health care provider will: [...] medical problems. BMI can be measured using Cameroonian measurements or metric measurements. To interpret your [...] 05/12/2005 Document Revised: 08/13/2018 Document Reviewed: 07/14/2018 [employer] Patient Education 2020 Vint. 04/21/2022 10:14:51 Lymphadenopathy Lymphadenopathy Lymphadenopathy means that [...] at home: Get plenty of rest. Take xccr-yis-ndytown and prescription medicines only as told by your health care provider. Your health care provider may recommend hzdp-olk-avkzhts medicines for pain. If directed, apply heat [...] 06/09/2009 Document Revised: 08/13/2018 Document Reviewed: 07/16/2018 [employer] Patient Education 2020 Vint. 04/21/2022 10:14:49 Tobacco Use Disorder Tobacco Use [...] reduces withdrawal symptoms. NRT is available as: ?Yxwf-ise-fruldal gums, lozenges, and skin patches. ?Prescription mouth [...] recovery for many people. General instructions Take befx-swu-rwvaqpw and prescription medicines only as told by your health care provider. Check with your health care provider before taking any new prescription or ynwr-jrb-oczxvcr medicines. Decide on a friend, family member, or smoking quit-line (such as 8-675-TWJV-NOW in the [place] that you can call [...] 05/06/2005 Document Revised: 08/18/2018 Document Reviewed: 08/18/2018 [employer] Patient Education 2020 [employer] Follow Up Care 04/17/2022 09:51:05 With:Aimee Walker CNP Address: When: only if needed [facility] 08-07-2022 Hospital Discharge instructions Patient [...] at home: Get plenty of rest. Take ezrs-ldx-vblfnhp and prescription medicines only as told by your health care provider. Your health care provider may recommend bnfj-alh-wulmegf medicines for pain. If directed, apply heat [...] 06/09/2009 Document Revised: 08/13/2018 Document Reviewed: 07/16/2018 [employer] Patient Education [employer]. Follow Up Care 04/20/2022 14:55:22 With:Aimee Walker Address: [address] [place] [address] [place], [place] [address] [phone] Business (1) When:04/23/2022 16:08:48 Comments:Follow-up with your primary care provider in 3 to 5 days. If symptoms worsen, do not improve, or new symptoms arise please report back to emergency department for further evaluation. [facility]08-07-2022 Evaluation + Plan noteExtracted from: Title:ED Note Author:Codey GERONIMO, Dony Hodgson te:04/20/22 Axillary lymphadenopathy (R5 9.0: Localized enlarged lymph nodes) Orders: naproxen, 500 mg = 1 tab(s), Oral, BID, PRN for pain, # 20 tab(s), Refills(s) 0, Pharmacy: [facility]/pharmacy #[id number], 170, cm, 04/20/22 15:01:00 EDT, Height/Length Dosing, 81.5, kg, 04/20/22 15:01:00 EDT, Weight Dosing Automated Diff Basic Metabolic Panel CBC w/ Auto Diff eGFR XR Chest 2 Views Future Appointments Appointment Date:04/21/2022 09:40:00 AM Scheduled Provider:Aimee Walker CNP [facility]07[facility]21[facility]2022 Hospital Discharge instructions Patient Education [...] 03/15/2012 Document Revised: 08/24/2019 Document Reviewed: 08/24/2019 [employer] Patient Education 2020 Vint. Follow Up Care 04/03/2022 16:59:04 With:Aimee Walker CNP Address: [phone] When:04/06/2022 [facility]06-17-2022 Miscellaneous Notes* Telephone Encounter - Lina Chavez RN - 02/28/2022 3:[address] Mckee, patient must be 4 weeks nicotine free prior to scheduling and collection of cosmetic payment. documented in this encounterTri[facility]06-[facility] History of Present illness Narrative* Amee Gonzalez PA-C - 02/12/2022 10:38 AM EDT Images from the original note were not included. Otolaryngology Consultation/Evaluation Note Head and Neck Fate ASSESSMENT: Burning tongue (primary encounter diagnosis) Irritation [...] Take 40 mg by mouth once daily. ldpxwpfpfltc-uso-nmvo-FA-vit K (BARIATRIC MULTIVITAMINS) 45 mg iron- 800 [...] and tender to palpation specifically around b/l [place]'s ducts and frenulum. Ventral aspect of tongue [...] Level: 3 - Low [place] [address] Hospital Discharge instructions Patient Education 02/06/2022 09:33:48 [...] reduces withdrawal symptoms. NRT is available as: ?Wwoj-pfj-mfuzoum gums, lozenges, and skin patches. ?Prescription mouth [...] recovery for many people. General instructions Take kbbt-oov-lqprlok and prescription medicines only as told by your health care provider. Check with your health care provider before taking any new prescription or zsyr-pea-lyuqdix medicines. Decide on a friend, family member, or smoking quit-line (such as 5-604-KBVU-NOW in the [place] that you can call [...] 05/06/2005 Document Revised: 08/18/2018 Document Reviewed: 08/18/2018 [employer] Patient Education 2020 Vint. 02/06/2022 09:33:46 BMI for Adults BMI for [...] height. This can be done either in [place]onian ([place] or metric measurements. Note that charts are available to help you find your BMI quickly and easily without having to do these calculations yourself. To calculate your BMI in Cam[place]onian ([place] measurements, your health care provider will: [...] medical problems. BMI can be measured using Cameroonian measurements or metric measurements. To interpret your [...] 05/12/2005 Document Revised: 08/13/2018 Document Reviewed: 07/14/2018 [employer] Patient Education 2020 [employer] Follow Up Care 02/05/2022 13:43:34 With:Aimee Walker CNP Address: When: only if needed [facility] 05-18-2022 Hospital Discharge instructions Patient [...] height. This can be done either in Cam[place]onian ([place] or metric measurements. Note that charts are available to help you find your BMI quickly and easily without having to do these calculations yourself. To calculate your BMI in Cam[place]onian ([place] measurements, your health care provider will: [...] medical problems. BMI can be measured using Cameroonian measurements or metric measurements. To interpret your [...] 05/12/2005 Document Revised: 08/13/2018 Document Reviewed: 07/14/2018 [employer] Patient Education 2020 Vint. 01/29/2022 11:02:54 Complicated Grief Complicated Grief Grief [...] friends and loved ones. General instructions Take mmqg-kkp-pfwtvyb and prescription medicines only as told by [...] 08/31/2006 Document Revised: 08/13/2018 Document Reviewed: 06/16/2018 [employer] Patient Education 2020 Vint. 01/29/2022 11:02:50 Alcohol Abuse and Dependence Information, [...] for Disease Control and Prevention: www.cdc.gov National Fate on Alcohol Abuse and Alcoholism: www.niaaa.nih.gov Alcoholics [...] 08/25/2017 Document Revised: 12/20/2019 Document Reviewed: 11/08/2019 [employer] Patient Education 2020 [employer] 01/29/2022 11:02:46 Managing Bipolar Disorder Managing Bipolar [...] Follow these instructions at home: Medicines Take yhri-tnv-jisicnc and prescription medicines only as told by your health care provider or pharmacist. Ask your pharmacist what zwsz-uvr-swxpzyk cold medicines you should avoid. Some medicines [...] services is a problem, search for a [facility] mental health care center. Public mental [...] 12/31/2017 Document Revised: 12/23/2019 Document Reviewed: 12/31/2017 [employer] Patient Education 2019 Vint. [facility] 05-02-2022 Miscellaneous Notes* Telephone Encounter [...] they would pay for the panniculectomy verses deidre shine. Patient was wondering if she had the panniculectomy with lipo and the bellybutton. How much would that be for her out of pocket? Patient states that if she needed to come in for another consult she would. Please advise at [phone] documented in this encounterTri[facility]04-[facility]22 Miscellaneous Notes* Telephone Encounter - [...] understood. Rocio Hester Ma documented in this encounterTri[facility]05-21-[facility]21 History of Present illness Narrative* Radha Jara - 02/01/2021 9:47 AM EDT CLINICAL PHARMACY NOTE: MEDS TO BEDS Total # of Prescriptions Filled: 2 The following medications were delivered to the patient: Percocet 5-325mg Augmentin 875-125mg Additional Documentation: delivered to patient in room 236 02/01 at 9:44am. Co- pay paid with credit on [employer] ($4.31). * Gamaliel Harris DO - 01/31/2021 [...] Singh RPH 19:00 PM documented in this encounterBCD Semicon[facility] Manufacturing Limited Phone: [phone]) 307-938605-15-2021 History of Present illness Narrative* Jasmine Burch RN - 01/26/2021 1:51 PM EDT Infusion complete, no complications, IV out and dressing applied. Encouraged patient to call with any questions. Patient left unit with steady gait to private residence. [facility] this [facility] Phone: [phone]) 962-336804-27-2021 History of Present illness Narrative* Radha Jara - 01/08/2021 5:59 PM EDT CLINICAL PHARMACY NOTE: MEDS TO [facility] Patient?: No Total # of Prescriptions Filled: 3 The following medications were delivered to the patient: Percocet 5-325mg Promethazine 25mg Pantoprazole 40mg Total # of Interventions Completed: 0 Time Spent (min): 0 Additional Documentation: delivered to patient in room 247 01/08 at 5:43pm. Co- pay paid with [employer] ($7.02). * Gal Atwood DO - 01/08/2021 [...] Morbid obesity with BMI of 40.0-44.9, adult ([facility]) [E66.01, Z68.41] 05/16/2020 30 y.o. female postop [...] obtained for OR 01-07-21 documented in this [facility] Work Phone: [phone]) 493-250104-27-2021 Hospital Discharge instructions* Instructions* Gamaliel Harris DO - 01/08/2021 Discharge Instructions for Surgery You had a Tian-en- Y Gastric Bypass (51317) surgery to treat obesity. Recovery from this [...] scheduled appointment, please call the office at [phone]. Call Your Doctor If Any of the [...] emergency, call 911 immediately. documented in this [facility] Phone: [phone]) 985-347704-12-2021 Hospital Discharge instructions* Instructions* Mahesh Price APRN - BRONZER - 12/24/2020 Images from the original note [...] drive you home after your procedure. Your limousine driver must be 18 years of age [...] questions, call the Pre-Admission Testing Unit at [phone]. Day of Surgery/Procedure As a patient at [facility] you can expect quality medical and nursing care that is centered on your individual needs. Our goal is to make your surgical experience as comfortableas possible . Directions to the Surgery Center [facility] is located at [address] [place] [address]. Please pull into the Emergency parking lot and stop at the spouting installer arcos. We offer free spouting installer service for all our surgery patients, if you choose not to have spouting installer parking we have additional parking across the street.You will enter the facility following the [facility] sign. Please stop at the medical secretary receptionist desk where you will be checked in by the staff. If you have any questions please call [phone]. Transportation after your procedure. You will need a friend or family member to drive you home after your procedure. Your limousine driver must be18 years of age or [...] You may shave your face or neck. [place] your teeth but do not swallow water. [...] or the day of surgery, please call [phone], or [phone] documented in this [facility] Work Phone: 1(222) 546-957304-12-2021 History of Present illness Narrative* Mahesh Price [...] Anxiety Arthritis knees and back Bipolar disorder ([facility]) 11/25/[address] Chap[address] Dr. 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 Harris Obesity Patient was evaluated in [facility] & anesthesia guidelines were applied. NPO [...] 11:38 AM documented in this [facility] Work Phone: evaluation + Plan note No data available for this section [facility] Evaluation + Plan note Referrals to Other Providers Referred by: Aimee Walker CNP [facility] Evaluation + Plan note Future Appointments Appointment Date:04/04/2022 02:40:00 PM Scheduled Provider:Rahul Salinas DO [facility] Future App[facility]ments Appointment [...] w/CAD if perf and 3D Tanmay 04/21/22 [facility] Evaluation + Plan note Future Appointments Appointment Date:08/22/2022 10:20:00 AM Scheduled Provider:Rahul Salinas DO Location:[facility] Appointment Type: Hospital Follow Up w/TCM Future Scheduled Tests Laboratory* CBC w/ Auto Diff 07/21/22 Radiology* MA Mamm Screen w/CAD if perf and 3D Tanmay 04/21/22 [facility] Future Appointments Appointment Date:11/03/2022 01:00:00 PM Scheduled Provider:Nakia Shah Location:[facility] Appointment Type: Open Future Scheduled Tests Laboratory* CBC w/ Auto Diff 07/21/22 Radiology* MA Mamm Screen w/CAD if perf and 3D Tanmay 04/21/22 [facility] Future Appointments Appointment Date:01/02/2023 10:00:00 AM Scheduled Provider:Nakia Shah Location:[facility] Appointment Type: Open Future Scheduled Tests Laboratory* CBC w/ Auto Diff 07/21/22 Radiology* MA Mamm Screen w/CAD if perf and 3D Tanmay 04/21/22 [facility] Evaluation + Plan note Future Appointments Appointment Date:12/05/2022 09:00:00 AM Scheduled Provider: Location:[facility] Surgical Services Appointment Type:Surgery FT Appointment Date:01/02/2023 10:00:00 AM Scheduled Provider:Nakia Shah Location:[facility] Appointment Type:FM Open Future Scheduled Tests Laboratory* CBC w/ Auto Diff 07/21/22 Radiology* MA Mamm Screen w/CAD if perf and 3D Tanmay 04/21/22 [facility] Future Appointments Appointment Date:12/25/2023 10:15:00 AM Scheduled Provider:Chava BHAKTA, Otto Chester Location:.[facility]iology Clinic Appointment Type:Cardiology [facility] (FT) [facility]* Diagnosis Preop testing- Primary Preoperative examination, unspecified documented in this encounter [employer] Phone: [email or web address] note* Diagnosis Post-op pain- Primary Other acute postoperative pain Status post gastric bypass for obesity Bariatric surgery status Morbid obesity with BMI of 40.0-44.9, adult (HCC) Hiatal hernia Diaphragmatic hernia without mention of obstruction or gangrene documented in this encounter [employer] Phone: [email or web address] note* Diagnosis Dehydration documented in this encounter [employer] Phone: evalchylka note* Diagnosis Generalized abdominal pain- Primary Abdominal pain, generalized documented in this encounter [employer] Phone: evalngklox note* Diagnosis Surgery, elective- Primary Unspecified elective surgery for purposes other than remedying health states Omental infarction (HCC) Acute vascular insufficiency of intestine Intra-abdominal abscess (HCC) Peritoneal abscess documented in this encounter [employer] Phone: [email or web address] note* Diagnosis Omental infarction (HCC) Acute vascular insufficiency of intestine documented in this encounter [employer] Phone: evalbwlvov note* Diagnosis Hypertrophy of breast- Primary Upper back pain Excess skin [facility]* Diagnosis Burning tongue- Primary Glossodynia Irritation of oral cavity Other and unspecified diseases of the oral soft tissues documented in this encounter [facility] note* Diagnosis Onset Date Resolution Status Bipolar [...] to other organs documented in this encounter [facility] noteNo assessment information [facility] Work Phone: Evaluation noteNo InformationNort [employer] Other Evaluation note* Diagnosis Panic disorder- Primary Panic disorder without agoraphobia Borderline personality disorder (HCC) Borderline personality disorder Bipolar affective disorder in remission (HCC) Chronic alcoholism in remission (HCC) Other and unspecified alcohol dependence, in remission Routine health maintenance Routine general medical examination at a health care facility documented in this encounter [facility]* Diagnosis Panic disorder- Primary Panic disorder without agoraphobia documented in this encounter [facility] note* Diagnosis Routine health maintenance- Primary Routine [...] disorder, unspecified type documented in this encounter [facility]* Diagnosis 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 documented in this encounter [facility]* Diagnosis Idiopathic intracranial hypertension Benign intracranial hypertension documented in this encounter [facility] general Narrative - Reported* Type Description Date Medical History plantar fasciitis Medical History migraine headache Medical History borderline personality disorder Medical History chronic depression Medical History bipolar Surgical History C section Surgical History c section Surgical History tubal ligation Surgical History HYSTERECTOMY Surgical History oral surgery Surgical History gastric bypass Hospitalization History mental health issues Enlightened Lifestyle Other History general Narrative - Reported* Type Description Date Medical History plantar fasciitis Medical History migraine headache Medical History borderline personality disorder Medical History chronic depression Medical History bipolar Surgical History C section Surgical History c section Surgical History tubal ligation Surgical History HYSTERECTOMY Surgical History oral surgery Surgical History gastric bypass Hospitalization History mental health issues [place] [facility] Enlightened Lifestyle Other Hospital Discharge instructions No data available for this section [facility] Progress note No data available for this section [facility] Assessments Diagnosis Preoperative testing Preoperative examination, unspecified Diagnosis Gastroesophageal reflux disease with esophagitis without hemorrhage Advance Directives Documents on File Type Date Recorded Patient [employer] ACP-Advance Directive 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-Power of 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 Adjuster Leader Case Trim Documents on File Type Date Recorded Patient [employer] ACP-Advance Directive ACP-Power of Machine Adjuster Leader Case Trim Latest Code Status on File Code Status [...] 01/08/2021 8:31 PM Summary Purpose Family History Relationship Condition Age at Onset Recorded Date/T [...] questions, PLEASE call your doctor or the [facility] Weight Management center at documented in this encounter Reason for Referral Status Reason Specialty Diagnoses / Procedures Referre d By Contact Referred To Contact Closed Radiology Diagnoses Omental infarction (HCC) Procedures CT ABDOMEN PELVIS W IV CONTRAST Additional Contrast? Oral Gamaliel Harris, [address] [facility] [address] [place] [address] Specialty Diagnoses / Procedures Referred By Contdeya t Referred To Contact Ophthalmology Diagnoses Idiopathic intracranial hypertension Procedures CONSULT TO OPHTHALMOLOGY OFFICE/OUTPATIENT [facility] 60-74 MINUTES Eileen Manzano MD [address] [id number] Referral ID Status Reason Start Date Expiration Date Visits Requested Visits Authorized [id number] Authorized PCP Requested Referral 11/20/2022 11/20/2023 1 1 Specialty Diagnoses / Procedures Referred By Contac t Referred To Contact MR IMAGING Diagnoses Idiopathic intracranial hypertension Procedures MRV BRAIN WO/W IVCON MRA; HEAD W & WO CONTRAST Eileen Manzano MD [address] [id number] Mr Imaging Referral ID Status Reason Start Date Expiration Date Visits Requested Visits Authorized [id number] Pending Review Auto-Generat ed Referral 11/20/2022 12/20/2023 1 1 Specialty Diagnoses / Procedures Referred By Contac t Referred To Contact MR IMAGING Diagnoses Mass of upper outer quadrant of left breast Procedures MRI BREAST BX WO/W IVCON LEFT BX BREAST W/DEVICE 1ST [place] [address] [place] [address] Mr Imaging [facility] Referral ID Status Reason Start Date Expiration Date Visits Requested Visits Authorized [id number] Pending Review Auto-Generat ed Referral 03/08/2024 04/07/2025 1 1 Specialty Diagnoses / Procedures Referred By Contac t Referred To Contact Diagnoses Class 1 obesity due to excess calories without serious comorbidity with body mass index (BMI) of 30.0 to 30.9 in adult Procedures ENDOCRINE MEDICAL WEIGHT MANAGEMENT OFFICE/OUTPATIENT [facility] [address] [place] [address] [place] [address] Referral ID Status Reason Start Date Expiration Date Visits Requested Visits Authorized [id number] Authorized PCP Requested Referral 03/08/2024 03/08/2025 1 1 Specialty Diagnoses / Procedures Referred By Contac t Referred To Contact MR IMAGING Diagnoses Pancreas cyst Procedures MRI 3D POST PROCESSING 3D RENDERING W/INTERP&POSTPROC DIFF WORK STATION Leonela Grossman MD [address] [place] [address] Mr Imaging [id number] Referral ID Status Reason Start Date Expiration Date V isits Requested Visits Authorized [id number] Closed Auto-Generate d Referral 08/31/2023 09/29/2024 1 1 Specialty Diagnoses / Procedures Referred By Contac t Referred To Contact MR IMAGING Diagnoses Pancreas cyst Procedures MRI PANC/TANMAY WO/W IVCON MRI ABDOMEN W/O & W/CONTRAST MATERIAL Leonela Grossman MD [address] [place] [address] Mr Imaging [place] [address] Referral ID Status Reason Start Date Expiration Date V isits Requested Visits Authorized [id number] Closed Auto-Generate d Referral 03/01/2024 03/31/2024 1 1 Specialty Diagnoses / Procedures Referred By Contac t Referred To Contact MR IMAGING Diagnoses Idiopathic intracranial hypertension Procedures MRV BRAIN WO/W IVCON MRA; HEAD W & WO Eileen Dang MD [address] [place] [address] Mr Imaging [place] [address] Referral ID Status Reason Start Date Expiration Date V isits Requested Visits Authorized [id number] Closed Auto-Generate d Referral 01/29/2023 02/28/2023 1 1 Chief Complaint and Reason for [...] and content) DATE CREATED AUTHOR 10/06/2020 [employer] DATE CREATED AUTHOR AUTHOR'S ORGANIZ ATION 01/06/2021 [facility] DATE CREATED AUTHOR AUTHOR'S ORGANIZ ATION 08/16/2022 [facility] DATE CREATED AUTHOR AUTHOR'S ORGANIZ ATION 11/15/2022 [facility] DATE CREATED AUTHOR AUTHOR'S ORGANIZ ATION 08/17/2023 [facility] DATE CREATED AUTHOR AUTHOR'S ORGANIZ ATION 09/04/2023 [facility] DATE CREATED AUTHOR AUTHOR'S ORGANIZ ATION 10/26/2023 [facility] DATE CREATED AUTHOR AUTHOR'S ORGANIZ ATION 01/14/[address] [facility] DATE CREATED AUTHOR AUTHOR'S ORGANIZ ATION 03/12/2024 [facility] DATE CREATED AUTHOR AUTHOR'S ORGANIZ ATION 05/21/2024 [facility] DATE CREATED AUTHOR AUTHOR'S ORGANIZ ATION 05/31/2024 [facility] Reason for Visit (unrecogniz ed section and content) Status Reason Specialty Diagnoses / Procedures Re ferred By Contact Referred To Contact Diagnoses GERD (gastroesophageal reflux disease) GERD/OBESITY Procedures [place] ESOPHAGOGASTRODUODENOSCOPY TRANSORAL DIAGNOSTIC EGD ESOPHAGOGASTRODUODENOSCOPY Gamaliel Harris DO [address] [facility] [place] [address] Strava Status Reason Specialty Diagnoses / Procedures Referre d By Contact Referred To Contact Closed Radiology Diagnoses Gastro-esophageal reflux disease with esophagitis, without bleeding Procedures CHG RADIOLOGIC EXAM UPR GI TRC SINGLE CONTRAST STUDY Gamaliel Harris DO [address] [place] [address] [facility] Radiology [address] [place] [id number] Status Reason Specialty Diagnoses / Procedures Referre d By Contact Referred To Contact Diagnoses Morbid obesity (HCC) GERD (gastroesophageal reflux disease) MORBID OBESITY, GERD Procedures [place] LAP GASTRIC BYPASS/TIAN-EN-Y XI LAPAROSCOPIC ROBOTIC GASTRIC BYPASS TIAN-EN-Y, LIVER BIOPSY, EGD- GI UNIT SCHEDULED. Gamaliel Harris DO [address] [place] [address] [place] [address] Reason Comments Abdominal Pain Diffuse cramping and bloating. Onset 2 days ago. Pt reports she is 3.5weeks post Gastric bypass. Last BM this AM Reason Comments Abdominal Pain possible abscess Status Reason Specialty Diagnoses / Procedures Referre d By Contact Referred To Contact Diagnoses Intra-abdominal abscess (HCC) Omental infarction (HCC) Gamaliel Harris DO [address] [place] [phone] [facility] Status Reason Specialty Diagnoses / Procedures Referre d By Contact Referred To Contact Closed Radiology Diagnoses Omental infarction (HCC) Procedures CT ABDOMEN PELVIS W IV CONTRAST Additional Contrast? Oral Gamaliel Harris DO [address] [place] [address] Reason Comments Orders Reason Comments Patient Question [...] present [K21.9] Obesity (BMI 30-39.9) [E66.9] Procedures [place] EGD TRANSORAL BIOPSY SINGLE/MULTIPLE [place] ESOPHAGOGASTRODUODENOSCOPY TRANSORAL DIAGNOSTIC [place] EGD BALLOON DILATION ESOPHAGUS <30 MM DIAM EGD BIOPSY Gamaliel Harris DO [address] [facility] [address] [place] [address] [facility] [address] [place] [address] Referral ID Status Reason Start Date Expiration Date Visits Re quested Visits Authorized [id number] 1 1 Reason Comments Establish Care Panic attacks , SOB ( Chest tightness ) Reason Comments Physical Gastric by pass surg luis 3 yrs ago and wants to talk about how to help with weight loss.Rash on right upper thigh. Reason Comments Radiology MRI Specialty Diagnoses / Procedures Referred By Simona bailey Referred To Contact MR IMAGING Diagnoses Pancreas cyst Procedures MRI PANC/TANMAY WO/W IVCON MRI ABDOMEN W/O & W/CONTRAST MATERIAL Leonela Grossman MD [address] [place] [id number] Mr Imaging [place] [address] Referral ID Status Reason Start Date Expiration Date V isits Requested Visits Authorized [id number] Closed Auto-Generate d Referral 03/01/2024 03/31/2024 1 1 Reason Onset Date Comments ACM EDYTA RN 05/30/2024 ED Utilizatio n review per request of payer Specialty Diagnoses / Procedures Referred By Contac t Referred To Contact MR IMAGING Diagnoses Idiopathic intracranial hypertension Procedures MRV BRAIN WO/W IVCON MRA; HEAD W & WO CONTRAST Eileen Manzano MD [address] [place] [address] Mr Imaging [place] [address] Referral ID Status Reason Start Date Expiration Date V isits Requested Visits Authorized [id number] Closed Auto-Generate d Referral 01/29/2023 02/28/2023 1 1 Ordered Prescriptions (unrec ognized section [...] dose 1044 (Given - Provid er: Judy Reeder, MARCO) piperacillin-tazobactam (ZOSYN) 3,375 mg in dextrose 5 [...] 1 dose 1142 (Given - Provid er: [facility]) iopamidol (ISOVUE-370) 76 % injection 75 mL (COMPLETED) 75 mL, Intravenous, IMG ONCE PRN, Other, Starting on Thu01/30/21 at 1137, For 1 dose 1142 (Given - Provid er: [facility]) Scheduled Medication Order 01/30/2021 01/31/2021 02/01/2021 0.9 % sodium chloride bolus (COMPLETED) 1,000 mL (8.96 mL/kg), Intravenous, at 1,000 mL/hr, Administer over 1 Hours, ONCE, On Thu01/30/21 at 1715, For 1 dose 1708 (New Bag - Provider: Orlando Guevara, RN)1901 (Stopped - Provider: Orlando Guevara RN) enoxaparin (LOVENOX) injection 40 mg [...] unless specifically ordered. 1707 (Given - Provider: Orlando Guevara RN) fentaNYL (SUBLIMAZE) injection 50 mcg [...] Palacios, MARCO)0635 (New Bag - Provider: Heather aPlacios, MARCO)0940 (Stopped - Provider: Wei Carter, MARCO)1257 (New Bag - Provider: Wei Carter, MARCO)1632 (Stopped - Provider: Wei Carter, MARCO)2032 (New Bag - Provider: Rita Klein, MARCO) 0030 (Stopped - Provider: Rita Klein, MARCO)0559 [...] Wei Carter RN)1424 (Given - Provider: Wei Carter, MARCO)1921 (Given - Provider: Rita Klein, RN) 0404 (Given - Provider: Rita Klein, RN)0832 (Given - Provider: Bonnie Ruiz, MARCO) promethazine (PHENERGAN) injection 12.5 mg 12.5 mg, [...] or prosecute any alcohol or drug abuse patient.[facility] Hospital[facility] the event this information is protected by the Federal Confidentiality of Alcohol and Drug Abuse Patient Records regulations: The Federal rules restrict any use of the information to criminally investigate or prosecute any alcohol or drug abuse patient.[facility] Hospital[facility] the event this information is protected by the Federal Confidentiality of Alcohol and Drug Abuse Patient Records regulations: The Federal rules restrict any use of the information to criminally investigate or prosecute any alcohol or drug abuse patient.[facility] Hospital[facility] the event this information is protected by the Federal Confidentiality of Alcohol and Drug Abuse Patient Records regulations: The Federal rules restrict any use of the information to criminally investigate or prosecute any alcohol or drug abuse patient.[facility] Hospital[facility] the event this information is protected by the Federal Confidentiality of Alcohol and Drug Abuse Patient Records regulations: The Federal rules restrict any use of the information to criminally investigate or prosecute any alcohol or drug abuse patient.[facility] Hospital[facility] the event this information is protected by the Federal Confidentiality of Alcohol and Drug Abuse Patient Records regulations: The Federal rules restrict any use of the information to criminally investigate or prosecute any alcohol or drug abuse patient.[facility] HospitalIn the event this information is protected by the Federal Confidentiality of Alcohol and Drug Abuse Patient Records regulations: The Federal rules restrict any use of the information to criminally investigate or prosecute any alcohol or drug abuse patient.[facility] HospitalIn the event this information is protected by the Federal Confidentiality of Alcohol and Drug Abuse Patient Records regulations: The Federal rules restrict any use of the information to criminally investigate or prosecute any alcohol or drug abuse patient.[facility] Hospital[facility] the event this information is protected by the Federal Confidentiality of Alcohol and Drug Abuse Patient Records regulations: The Federal rules restrict any use of the information to criminally investigate or prosecute any alcohol or drug abuse patient.[facility] HospitalIn the event this information is protected by the Federal Confidentiality of Alcohol and Drug Abuse Patient Records regulations: The Federal rules restrict any use of the information to criminally investigate or prosecute any alcohol or drug abuse patient.[facility] Hospital[facility] the event this information is protected by the Federal Confidentiality of Alcohol and Drug Abuse Patient Records regulations: The Federal rules restrict any use of the information to criminally investigate or prosecute any alcohol or drug abuse patient.[facility] HospitalIn the event this information is protected by the Federal Confidentiality of Alcohol and Drug Abuse Patient Records regulations: The Federal rules restrict any use of the information to criminally investigate or prosecute any alcohol or drug abuse patient.[facility] the event this information is protected by the Federal Confidentiality of Alcohol and Drug Abuse Patient Records regulations: The Federal rules restrict any use of the information to criminally investigate or prosecute any alcohol or drug abuse patient.[facility] HospitalIn the event this information is protected by the Federal Confidentiality of Alcohol and Drug Abuse Patient Records regulations: The Federal rules restrict any use of the information to criminally investigate or prosecute any alcohol or drug abuse patient.[facility] HospitalIn the event this information is protected by the Federal Confidentiality of Alcohol and Drug Abuse Patient Records regulations: The Federal rules restrict any use of the information to criminally investigate or prosecute any alcohol or drug abuse patient.[facility] HospitalIn the event this information is protected by the Federal Confidentiality of Alcohol and Drug Abuse Patient Records regulations: The Federal rules restrict any use of the information to criminally investigate or prosecute any alcohol or drug abuse patient.[facility] Care Team (unrecognized sect ion and content) Team Status: Inactive Member Role Status Dates Jennie Ames , DO Primary Care Provider Active Sangeetha Peña MD Admit Provider Active Lindy Hdz Other Provider Active Krystal Romo , DO Other Provider Active Carolyne Schilling MD Other Provider Active Jamie Larsen , DO Other Provider Active DIANNE Bro-BC Other Provider Active Kenrick Lee , DO [...] DO Referring Provider, Other Pr ovider Active DIANNE Bro-BC Other Provider Active Kenrick Lee , DO [...] Primary Care Provider Active Jose Maria Nair DO Emergency Provider Active Team Status: Inactive Member Role Status Dates Jennie Ames , DO Primary Care Provider Active Yoli Norris MD Emergency Provider Active Associate Professor Of Literacy Relationship Specialty Start Date End Date Jennie Ames, [address] [facility] [place] [address] PCP - General Family Medicine 11/19/22 Team [...] End: December 24, 2023 Jose Maria Nair , Emergency Provider Active St art: December 24, 2023 End: December 24, 2023 Team Status: Inactive Member Role Status Dates Jennie Ames , DO Primary Care Provider Active S tart: December 31, 2023 End: December 31, 2023 Kenny Javed APRN Emergency Provider Active Start: December 31, 2023 End: December 31, 2023 Associate Professor Of Literacy Relationship Specialty [place] [address] [place] [address] PCP - General Family Medicine 01/04/24 Nilo Prado MD [address] [place] [address] Referring Gastroenterology 08/17/23 Associate Professor Of Literacy Relationship Specialty [place] [address] [place] [address] PCP - General Family Medicine 01/04/24 Nilo Prado MD [address] [place] [address] Referring Gastroenterology 08/17/23 Associate Professor Of Literacy Relationship Specialty [place] [address] [place] [address] PCP - General Family Medicine 01/04/24 Nilo Prado MD [address] [place] [address] Referring Gastroenterology 08/17/23 Associate Professor Of Literacy Relationship Specialty [place] [address] [place] [address] PCP - General Family Medicine 01/04/24 Nilo Prado MD [address] [place] [address] Referring Gastroenterology 08/17/23 Associate Professor Of Literacy Relationship Specialty [place] [address] [place] [address] PCP - General Family Medicine 01/04/24 Nilo Prado MD [address] [place] [address] Referring Gastroenterology 08/17/23 Associate Professor Of Literacy Relationship Specialty [place] [address] [place] [address] PCP - General Family Medicine 05/30/24 iNlo Prado MD [address] [place] [address] Referring Gastroenterology 08/17/23 Goals (unrecognized section and [...] BE BASED ON THE PRIMARY CLINICAL RECORDS. [facility]. provides no warranty or guarantee of the accuracy or completeness of information in this document.
[2024-06-12] MEDS: 0.9 % SODIUM CHLORIDE 1,000 ML 1000 ML IV (11:25)
[2024-06-12] MEDS: LORAZEPAM 2 MG/ML VIAL 1 MG IV (11:26)
[2024-06-12] MEDS: ONDANSETRON PF 4 MG/2 ML VIAL IV (11:26)
[2024-06-12 11:55] VITALS: BP 124/86; PULSE 68; O2SAT 100
[2024-06-12 12:12] LABS: BUN Creatinine Ratio 6.6; Calcium 9.7 mg/dL (8.5-10.1); Carbon Dioxide 24.2 mmol/L (21.0-32.0); Estimated GFR (African America >60 (>=60); Estimated GFR (Non-African Ame >60 (>=60); Glucose 131 mg/dL (74-106)
[2024-06-12 12:19] LABS: Anion Gap 13.1; Chloride 103 mmol/L (98-107); Sodium 136 mmol/L (136-145)
[2024-06-12 12:22] LABS: Potassium 4.3 mmol/L (3.5-5.1)
[2024-06-12 12:36] LABS: Basophils Percent Auto 0.6 % (0.2-2.0); Eosinophils Absolute Auto 0.1 10^3/uL (0.0-0.7); Eosinophils Percent Auto 1.3 % (0.9-7.0); Hematocrit 37.4 % (36.0-48.0); Hemoglobin 12.6 g/dL (12.0-16.0); Immature Granulocytes Abs Auto 0.01 10^3/uL (0.00-0.03); Immature Granulocytes Pct Auto 0.1 % (0.0-0.5); Lymphocytes Absolute Auto 1.8 10^3/uL (1.2-3.8); Lymphocytes Percent Auto 25.3 % (20.5-60.0); Mean Corpuscular HGB Conc 33.7 g/dL (29.9-35.2); Mean Corpuscular Hemoglobin 31.2 pg (26.7-34.0); Mean Corpuscular Volume 92.6 fL (81.0-99.0); Mean Platelet Volume 11.1 fL (9.5-13.5); Monocytes Absolute Auto 0.5 10^3/uL (0.3-0.8); Monocytes Percent Auto 6.7 % (1.7-12.0); Neutrophils Absolute Auto 4.8 10^3/uL (1.4-6.5); Platelet Count 311 10^3/uL (150-450); Red Blood Count 4.04 10^6/uL (4.20-5.40); Red Cell Distribution Width 15.9 % (11.0-15.0); White Blood Count 7.2 10^3/uL (4.0-11.0)
[2024-06-12 13:29] VITALS: BP 123/94; PULSE 68; O2SAT 100
== END 2024-06-12 13:43 | disposition home or self-care (01) ==
PROVIDERS: Emergency Provider Emergency Medicine
DX: F10.239 Alcohol dependence with withdrawal, unspecified (principal); F17.200 Nicotine dependence, unspecified, uncomplicated; Z98.84 Bariatric surgery status
CPT/HCPCS: 36415; 80048; 85025; 93005; 96374; 96375; 99284; J2060; J2405

== ENCOUNTER 2024-07-02 09:45 | Emergency (ER) | payer MEDICARE, MEDICAID, SELFPAY ==
[2024-07-02] VITALS (8 sets, daily range): BP systolic 117–139; BP diastolic 77–90; PULSE 62–86; TEMP 36.7; O2SAT 99–100; BMI 29.0
--- NOTE | 2024-07-02 09:57 | ECG_ITS ---
The 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
--- NOTE | 2024-07-02 10:10 | XR_ITS ---
The [address] [address] Patient Name: LEILA HASSAN MRN: [id number] date: 1990 Sex: F Assigned Patient Location: ER Current Patient Location: ED.MAIN Accession/Order Number: [id number] Exam Date: 07/02/2024 10:18 Report Date: 07/02/2024 11:21 At the request of: JOSÉ ANTONIO WARE Procedure: XR chest 1V FRONTAL CHEST; 07/02/2024 10:18 AM EDT Clinical History:sob Comparison: 10/14/2023 . AP portable upright film. Osseous structures are grossly intact. No change cardiac and mediastinal silhouettes or brayan. No infiltrate or effusion. No failure pattern. Lungs are well expanded. No distinct evidence of pleural edge to indicate pneumothorax. XR/XR chest 1V IMPRESSION: 1. No acute findings. Electronically authenticated by: THERESA MANZANO Date: 07/02/2024 11:21
[2024-07-02 10:33] LABS: Basophils Absolute Auto 0.1 10^3/uL (0.0-0.1); Basophils Percent Auto 0.5 % (0.2-2.0); Eosinophils Absolute Auto 0.1 10^3/uL (0.0-0.7); Eosinophils Percent Auto 0.9 % (0.9-7.0); Hematocrit 36.6 % (36.0-48.0); Hemoglobin 12.2 g/dL (12.0-16.0); Immature Granulocytes Abs Auto 0.03 10^3/uL (0.00-0.03); Immature Granulocytes Pct Auto 0.3 % (0.0-0.5); Lymphocytes Absolute Auto 1.6 10^3/uL (1.2-3.8); Lymphocytes Percent Auto 17.2 % (20.5-60.0); Mean Corpuscular HGB Conc 33.3 g/dL (29.9-35.2); Mean Corpuscular Hemoglobin 31.6 pg (26.7-34.0); Mean Corpuscular Volume 94.8 fL (81.0-99.0); Mean Platelet Volume 10.6 fL (9.5-13.5); Monocytes Absolute Auto 0.6 10^3/uL (0.3-0.8); Monocytes Percent Auto 6.6 % (1.7-12.0); Neutrophils Absolute Auto 7.1 10^3/uL (1.4-6.5); Neutrophils Percent Auto 74.5 % (43.0-75.0); Platelet Count 362 10^3/uL (150-450); Red Blood Count 3.86 10^6/uL (4.20-5.40); Red Cell Distribution Width 16.6 % (11.0-15.0); White Blood Count 9.5 10^3/uL (4.0-11.0)
[2024-07-02 10:42] LABS: Bilirubin Urine NEGATIVE (NEGATIVE); Blood Urine NEGATIVE (NEGATIVE); Clarity Urine CLEAR (CLEAR); Color Urine YELLOW (YELLOW); Glucose Urine UA NEGATIVE (NEGATIVE); Ketones Urine NEGATIVE (NEGATIVE); Leukocyte Esterase Urine NEGATIVE (NEGATIVE); Nitrite Urine NEGATIVE (NEGATIVE); Protein Urine NEGATIVE (NEG/TRACE); Urobilinogen Urine 0.2 EU/dL (0.2-1.0)
[2024-07-02 10:44] LABS: Urine Microscopic Indicated NO
[2024-07-02 10:49] LABS: HCG Qualitative NEGATIVE (NEGATIVE); Internal Control Within Normal Limits
[2024-07-02 10:50] LABS: Alanine Aminotransferase 21 U/L (14-59); Albumin Level 3.5 g/dL (3.4-5.0); Alkaline Phosphatase 62 U/L (46-116); Anion Gap 15.7; Aspartate Amino Transferase 15 U/L (15-37); BUN Creatinine Ratio 10.7; Bilirubin Total 0.3 mg/dL (0.2-1.0); Calcium 9.3 mg/dL (8.5-10.1); Carbon Dioxide 25.4 mmol/L (21.0-32.0); Chloride 106 mmol/L (98-107); Estimated GFR (African America >60 (>=60 mL/min/1.73m^2); Estimated GFR (Non-African Ame >60 (>=60 mL/min/1.73m^2); Globulin 3.4 g/dL; Glucose 93 mg/dL (74-106); Magnesium 1.9 mg/dL (1.8-2.4); Potassium 4.1 mmol/L (3.5-5.1); Sodium 143 mmol/L (136-145); Total Protein 6.9 g/dL (6.4-8.2); Troponin I High Sensitivity 4.1 pg/mL (4.0-51.3)
--- OUTSIDE RECORDS SUMMARY | 2024-07-02 10:57 | XMS_ITS | CCD ---
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 [address] Cholesterol in LDL/Cholesterol in HDL [Mass ratio] 0.83 {ratio} Normal <2.54 [facility] Comment on above: Order Comment: Cecili men Type: BLOOD SPECIMENOrdering Facility: [facility] Address: [address] [place] [address] Result Comment: Eric kasper: 1. National Cholesterol Education Program ATP III Guideline At-A-Glance Quick Desk Reference: National Heart, Lung, and Blood [place]. National Institutes of Health. 2001: NIH Publication No. 01-3305. 2. An International Atherosclerosis Society position paper: global recommendations for the management of dyslipidemia: executive summary, Atherosclerosis. 2014: 232(2):410-413. Performed By: #### 2 4331-1 ####[facility] LABCLIA [id number] [address] LABCLIA [id number] [place] [address] Cholesterol in VLDL [Mass/Vol] 10 mg/dL Normal <30 [facility] Comment on above: Order Comment: Philip birmingham Type: BLOOD SPECIMENOrdering Facility: [facility] Address: [address] [place] [address] Performed By: #### 2 4331-1 ####[facility] LABCLIA [id number] [address] LABCLIA [id number] [place] [address] Cholesterol non HDL [Mass/Vol] 70 mg/dL Normal <130 [facility] Comment on above: Order Comment: Cecili men Type: BLOOD SPECIMENOrdering Facility: [facility] Address: [address] [place] [address] Result Comment: <130 mg/dL, Optimal 130-159 mg/dL, Near optimal/above optimal 160-189 mg/dL, Borderline high 190-219 mg/dL, High >219 mg/dL, Very high Secondary prevention optimal non HDL Cholesterol levels are recommended to be <100 mg/dL Performed By: #### 2 4331-1 ####[facility] LABCLIA [id number] [address] [address] [facility] LABCLIA [id number] [place] [address] Cholesterol.total/Cho lesterol in HDL [Mass ratio] 1.97 {ratio} Normal <5.10 [facility] Comment on above: Order Comment: Speci men Type: BLOOD SPECIMENOrdering Facility: [facility] Address: [address] [place], [place] [id number] Performed By: #### 2 4331-1 ####[facility] LABCLIA [id number] [place] [id number] [facility] LABCLIA [id number] [place] [address] FASTING TIME 12 hrs Normal [facility] Comment on above: Order Comment: Speci men Type: BLOOD SPECIMENOrdering Facility: [facility] Address: [address] [place], [place] [address] Performed By: #### 2 4331-1 ####[facility] LABCLIA [id number] [place] [id number] [facility] LABCLIA [id number] [place] [address] Triglyceride [Mass/Vol] 51 mg/dL Normal <150 [facility] Comment on above: Order Comment: Speci men Type: BLOOD SPECIMENOrdering Facility: [facility] Address: [address] [place] [address] Result Comment: <150 mg/dL, Normal 150-199 mg/dL, Borderline high 200-499 mg/dL, High >499 mg/dL, Very high Performed By: #### 2 4331-1 ####[facility] LABCLIA [id number] [address] [address] [facility] LABCLIA [id number] [place] [address] CBC with Diffon 01-13-2024 Abs. Basophil 0.08 k/uL Normal 0.00-0.20 [facility] Comment on above: Performed By: #### ALFONSO PFEIFFER, CDP #### [address] [address] [employer] Repairer: Harpal Adair MD Abs.Imm.Granulocyte 0.05 k/uL Normal 0.00-0.30 [facility] Comment on above: Performed By: #### ALFONSO PFEIFFER, CDP #### [address] [address] [employer] Repairer: Harpal Adair MD Abs.Neutrophil (Seg) 7.68 k/uL Normal 1.50-8.10 [facility] Comment on above: Performed By: #### ALFONSO PFEIFFER, CDP #### [facility] [employer] [address] [place] [address] [employer]airer: Harpal Adair MD Basophils/100 WBC (Bld) 1 % Normal 0-2 [facility] Comment on above: Performed By: #### ALFONSO PFEIFFER, CDP #### [facility] [employer] [address] [place] [address] [employer]r: Harpal Adair MD Eosinophils (Bld) [#/Vol] 0.25 10*3/uL Normal 0.00-0.44 [facility] Comment on above: Performed By: #### ALFONSO PFEIFFER, CDP #### [address] [address] [employer]r: Harpal Adair MD Eosinophils/100 WBC (Bld) 2 % Normal 1-4 [facility] Comment on above: Performed By: #### ALFONSO PFEIFFER, CDP #### [facility] [employer] [address] [place] [address] [employer]r: Harpal Adair MD Erythrocyte distribution width (RBC) [Ratio] 18.6 % High 11.8-14.4 [facility] Comment on above: Performed By: #### ALFONSO PFEIFFER, CDP #### [facility] [employer] [address] [place] [address] [employer]r: Harpal Adair MD Hematocrit (Bld) [Volume fraction] 36.7 % Normal 36.3-47.1 [facility] Comment on above: Performed By: #### ALFONSO PFEIFFER, CDP #### [facility] [employer] [address] [place] [address] [employer]airer: Harpal Adair MD Hemoglobin (Bld) [Mass/Vol] 11.3 g/dL Low 11.9-15.1 [facility] Comment on above: Performed By: #### ALFONSO PFEIFFER, CDP #### [facility] [employer] [address] [place] [address] [employer]airer: Harpal Adair MD Immature granulocytes/100 WBC (Bld) 0 % Normal 0 [facility] Comment on above: Performed By: #### ALFONSO PFEIFFER, CDP #### [facility] [employer] [address] [place] [address] [employer]airer: Harpal Adair MD Lymphocytes (Bld) [#/Vol] 2.30 10*3/uL Normal 1.10-3.70 [facility] Comment on above: Performed By: #### ALFONSO PFEIFFER, CDP #### [facility] [address] [place] [address] [employer] Repairer: Harpal Adair MD Lymphocytes/100 WBC (Bld) 21 % Low 24-43 [facility] Comment on above: Performed By: #### ALFONSO PFEIFFER, CDP #### [facility] [employer] [address] [place] [address] [employer] Repairer: Harpal Adair MD MCH (RBC) [Entitic mass] 28.4 pg Normal 25.2-33.5 [facility] Comment on above: Performed By: #### ALFONSO PFEIFFER, CDP #### [facility] [employer] [address] [place] [address] [employer] Repairer: Harpal Adair MD MCHC (RBC) [Mass/Vol] 30.8 g/dL Normal 28.4-34.8 [facility] Comment on above: Performed By: #### ALFONSO PFEIFFER, CDP #### [address] [address] [employer] Repairer: Harpal Adair MD MCV (RBC) [Entitic vol] 92.2 fL Normal 82.6-102.9 [facility] Comment on above: Performed By: #### ALFONSO PFEIFFER, CDP #### [address] [address] [employer] Repairer: Harpal Adair MD Monocytes (Bld) [#/Vol] 0.77 10*3/uL Normal 0.10-1.20 [facility] Comment on above: Performed By: #### ALFONSO PFEIFFER, CDP #### [facility] [employer] [address] [place] [address] [employer] Repairer: Harpal Adair MD Monocytes/100 WBC (Bld) 7 % Normal 3-12 [facility] Comment on above: Performed By: #### ALFONSO PFEIFFER, CDP #### [facility] [employer] [address] [place] [address] [employer] Repairer: Harpal Adair MD Neutrophil (Seg) 69 % High 36-65 [facility] Comment on above: Performed By: #### ALFONSO PFEIFFER, CDP #### [facility] [employer] [address] [place] [address] [employer] Repairer: Harpal Adair MD NRBC Automated 0.0 per 100 WBC Normal 0.0 [facility] Comment on above: Performed By: #### ALFONSO PFEIFFER, CDP #### [facility] [employer] [address] [place] [address] [employer] Repairer: Harpal Adair MD Platelet mean volume (Bld) [Entitic vol] 11.4 fL Normal 8.1-13.5 [facility] Comment on above: Performed By: #### ALFONSO PFEIFFER, CDP #### [facility] [employer] [address] [place] [address] [employer] Rep[employer]r: Harpal Adair MD Platelets (Bld) [#/Vol] 387 10*3/uL Normal 138-453 [facility] Comment on above: Performed By: #### ALFONSO PFEIFFER, CDP #### [address] [address] [employer] Repairer: Harpal Adair MD RBC (Bld) [#/Vol] 3.98 10*6/uL Normal 3.95-5.11 [facility] Comment on above: Performed By: #### ALFONSO PFEIFFER, CDP #### [facility] [employer] [address] [place] [address] [employer] Repairer: Harpal Adair MD RBC morphology finding Nom (Bld) ANISOCYTOSIS PRESENT Normal [facility] Comment on above: Performed By: #### ALFONSO PFEIFFER, CDP #### [facility] [employer] [address] [place] [address] [employer] Repairer: Harpal Adair MD WBC (Bld) [#/Vol] 11.1 10*3/uL Normal 3.5-11.3 [facility] Comment on above: Performed By: #### ALFONSO PFEIFFER, CDP #### [facility] [employer] [address] [place] [address] [employer] Repairer: Harpal Adair MD Ferritinon 01-13-2024 Ferritin [Mass/Vol] 9 ng/mL Low 13-150 [facility] Comment on above: Result Comment: FERRITIN Reference Ranges: Adult Males 20 - 60 years: 30 - 400 ng/mL Adult females 17 - 60 years: 13 - 150 ng/mL Adults greater than 60 years: no established reference range Pediatrics: no established reference range Performed By: #### F ALFONSO BELL, CDP #### [facility] [address] [place] [address] [employer] Repairer: Harpal Adair MD Iron Binding Cap.on 01-13-20 24 % Fe Saturation 9 % Low 20-55 [facility] Comment on above: Performed By: #### ALFONSO PFEIFFER, CDP #### [facility] [address] [place] [address] [employer] Repairer: Harpal Adair MD Iron [Mass/Vol] 37 ug/dL Normal 37-145 [facility] Comment on above: Performed By: #### ALFONSO PFEIFFER, CDP #### [facility] [address] [place] [address] [employer] Repairer: Harpal Adair MD Total Fe Binding Cap 390 ug/dL Normal 250-450 [facility] Comment on above: Performed By: #### ALFONSO PFEIFFER, CDP #### [facility] [address] [place] [address] [employer] Repairer: Harpal Adair MD Unbound Fe Bind Cap 353 ug/dL High 112-347 [facility] Comment on above: Performed By: #### ALFONSO PFEIFFER, CDP #### [facility] [address] [place] [address] [employer] Repairer: MD Ernesto Naylor 01-05-2024 [facility] -------- JOSÉ ANTONIOSHAZIA ([id number]) 1990 F Date Time Provider Department 01/05/24 DEQUAN ELIA [facility] During your visit today, we recorded the [...] 60 mg by mouth once daily. - qrhapurtclbx-hxh-adhz-FA -vit K (BARIATRIC MULTIVITAMINS) 45 mg iron- [...] Status:Closed by ELIA BAIRES on 01/05/24 Normal [facility] TOXICOLOGY SCRN W/CONF,URINE on 01-05-2024 Amphetamines Confirm (U) [Mass/Vol] Negative Negative [facility] Comment on above: Cutoff threshold at 1000 ng/mL. Barbiturates Urine Negative Negative [facility] Comment on above: Cutoff threshold at 200 ng/mL. Benzodiazepines Urine Negative Negative [facility] Comment on above: Cutoff threshold at 200 ng/mL. Cannabinoids Screen Ql (U) Sent for confirmation Abnormal Negative [facility] Comment on above: Cutoff threshold at 50 ng/mL. Cocaine Ql (U) Negative Negative [facility] Comment on above: Cutoff threshold at 300 ng/mL. Ethanol (U) [Mass/Vol] mg/dL NINF - 11 mg/dL [facility] Interpretation and review of laboratory results Abnormal [facility] Opiates Screen Ql (U) Negative Negative [facility] Comment on above: Cutoff threshold at 300 ng/mL. oxyCODONE cutoff Screen (U) [Mass/Vol] Negative Negative [facility] Comment on above: Cutoff threshold at 100 ng/mL. Phencyclidine Ql (U) Negative Negative [facility] Comment on above: Cutoff threshold at 25 ng/mL. Immunoassay screen o nly. Cross reactivity with other substances can occur with immunoassay screening. Detection of any drug(s) in this urine toxicology panel is presumptive only. These tests are for medical purposes only and should not be used for compliance monitoring, legal, or forensic use. [facility] CANNABINOID CONF, URon 01-03 Cannabinoids Confirm (U) [Mass/Vol] 153 ng/mL High <16 [facility] Comment on above: Order Comment: Speci men Type: URINE SPECIMENOrdering Facility: [facility] Address: [address] [place] [address] Result Comment: Tetr ahydrocannabinol carboxylic acid (THCA) is a metabolite of ykrrv-8-svekuoginrssslrujmjt which is the main active component of marijuana. Presence of THCA indicates use of marijuana. Performed By: #### C ANNCONFU ####[facility] LABIA [id number] [address] [place] NOTE ([facility]) Normal [facility] Comment on above: Order Comment: Speci men Type: URINE SPECIMENOrdering Facility: [facility] Address: [address] [place] [address] Result Comment: This test is for medical use only. This test was developed and its performance characteristics determined by [facility]'s Rahul Schaefer [facility] [place] ([facility]). It has not been cleared or approved by the FDA. -[facility] is regulated under CLIA as qualified to perform high-complexity testing. This test is used for clinical purposes. It should not be regarded as investigational or for research. Performed By: #### C ANNCONFU ####[facility] LABCLIA [id number] [address] [place] CNOVon 01-04-2024 CNOV Office Visit (FPNRMO C) -------- SHAZIA CHOU ([id number]) 1990 F Date Time Provider Department 01/04/24 9:20 AM DEQUANCHELLYNirav Cardenas [facility] During your visit today, we [...] She says that she is originally from [facility] however came up to here today [...] to establish with a new psychiatrist at [facility] in [place]. She also sees a counselor weekly. Current [...] in 1 (more content not included)... Normal [facility] SPECIMEN VALIDITY, URINEon 0 01-04-2024 CHROMATE,URINE <10 Normal <50 [facility] Comment on above: Order Comment: Speci men Type: URINE SPECIMENOrdering Facility: [facility] Address: [address] [place] [address] Performed By: #### L [id number] ####[facility] LABCLIA [id number] [place] [address] [place] CREATININE,URINE 33.7 mg/dL Normal 20.0-300.0 [facility] Comment on above: Order Comment: Speci men Type: URINE SPECIMENOrdering Facility: [facility] Address: [address] [place] [address] Performed By: #### L [id number] ####[facility] LABCLIA [id number] [place] [address] [place] NITRITES,URINE <50 Normal <500 [facility] Comment on above: Order Comment: Speci men Type: URINE SPECIMENOrdering Facility: [facility] Address: [address] [place] [address] Performed By: #### L [id number] ####[facility] LABCLIA [id number] [place] [address] [place] OXIDANTS,URINE 70 mg/L Normal <200 [facility] Comment on above: Order Comment: Speci men Type: URINE SPECIMENOrdering Facility: [facility] Address: [address] [place] [address] Performed By: #### L [id number] ####[facility] LABIA [id number] [place] [address] [place] pH (U) 5.6 [pH] Normal 4.5-8.0 [facility] Comment on above: Order Comment: Speci men Type: URINE SPECIMENOrdering Facility: [facility] Address: [address] [place] [address] Performed By: #### L [id number] ####[facility] LABIA [id number] [place] [address] [place] SPEC GRAVITY,UR 1.019 Normal 1.003-1.035 [facility] Comment on above: Order Comment: Speci men Type: URINE SPECIMENOrdering Facility: [facility] Address: [address] [place] [address] Performed By: #### L [id number] ####[facility] [id number] [place] [address] [place] SPECIMEN VALIDITY QUALITY Specimen quality results within acceptable limits Normal [facility] Comment on above: Order Comment: Speci men Type: URINE SPECIMENOrdering Facility: [facility] Address: [address] [place] [address] Performed By: #### L [id number] ####[facility] LABIA [id number] [place] [address] [place] TOXICOLOGY SCRN W/CONF,URINE on 01-04-2024 Amphetamines Confirm (U) [Mass/Vol] Negative Normal Negative [facility] Comment on above: Order Comment: Speci men Type: URINE SPECIMENOrdering Facility: [facility] Address: [address] [place] [address] Result Comment: Cuto ff threshold at 1000 ng/mL. Performed By: #### U TOXRF ####[facility] LABIA [id number] [place] [address] [place] BARBITURATES, URINE Negative Normal Negative [facility] Comment on above: Order Comment: Speci men Type: URINE SPECIMENOrdering Facility: [facility] Address: [address] [place] [address] Result Comment: Cuto ff threshold at 200 ng/mL. Performed By: #### U TOXRF ####[facility] LABCLIA [id number] [place] [address] [place] BENZODIAZEPINES, UR Negative Normal Negative [facility] Comment on above: Order Comment: Speci men Type: URINE SPECIMENOrdering Facility: [facility] Address: [address] [place] [address] Result Comment: Cuto ff threshold at 200 ng/mL. Performed By: #### U TOXRF ####[facility] LABCLIA [id number] [place] [address] [place] Cannabinoids Screen Ql (U) Sent for confirmation Abnormal Negative [facility] Comment on above: Order Comment: Speci men Type: URINE SPECIMENOrdering Facility: [facility] Address: [address] [place] [address] Result Comment: Cuto ff threshold at 50 ng/mL. Performed By: #### U TOXRF ####[facility] LABCLIA [id number] [place] [address] [place] Cocaine Ql (U) Negative Normal Negative [facility] Comment on above: Order Comment: Speci men Type: URINE SPECIMENOrdering Facility: [facility] Address: [address] [place] [address] Result Comment: Cuto ff threshold at 300 ng/mL. Performed By: #### U TOXRF ####[facility] LABCLIA [id number] [place] [address] [place] Ethanol (U) [Mass/Vol] <11 Normal <11 [facility] Comment on above: Order Comment: Speci men Type: URINE SPECIMENOrdering Facility: [facility] Address: [address] [place] [address] Performed By: #### U TOXRF ####[facility] LABIA [id number] [place] [address] [place] Opiates Screen Ql (U) Negative Normal Negative [facility] Comment on above: Order Comment: Speci men Type: URINE SPECIMENOrdering Facility: [facility] Address: [address] [place] [address] Result Comment: Cuto ff threshold at 300 ng/mL. Performed By: #### U TOXRF ####[facility] LABIA [id number] [place] [address] [place] oxyCODONE cutoff Screen (U) [Mass/Vol] Negative Normal Negative [facility] Comment on above: Order Comment: Speci men Type: URINE SPECIMENOrdering Facility: [facility] Address: [address] [place] [address] Result Comment: Cuto ff threshold at 100 ng/mL. Performed By: #### U TOXRF ####[facility] [id number] [place] [address] [place] Phencyclidine Ql (U) Negative Normal Negative [facility] Comment on above: Order Comment: Speci men Type: URINE SPECIMENOrdering Facility: [facility] Address: [address] [place] [address] Result Comment: Cuto ff threshold at 25 ng/mL. Performed By: #### U TOXRF ####[facility] [id number] [place] [address] [place] ECG 12 lead ECGon 12-31-2023 ECG 12 lead ECG [address] [address] Electrocardiograph Report Signed Patient: Shazia Chou MR#: [id number] : 1990 Acct:[id number] Age/Sex: 33 / F ADM Date: 12/31/23 Loc: ER Room: Type: [facility] ER Attending Dr: Ordering Provider: Kenny [...] needs review Confirmed by JULES JANSEN DO ([id number]) on 01/01/2024 6:11:00 AM Referred By: Electronically Signed By:JULES JANSEN DO Transcribed By: MUS Signed By Jules Jansen DO 12/31 0611 Normal [facility] ED Noteon 2023 ED Note [id number] F Normal [facility] Activated partial thrombopla stin time (aPTT) in platelet poor plasma by coagulation aOrdered By: Marii Christiansen on 12-10-2023 aPTT Coag (PPP) [Time] 28.8 s 25.1-36.5 [facility] Comment on above: A hematocrit value g reater than 55% may lead to inaccurate results in coagulation testing. Patients having hematocrit values >55% require a special collection tube for coagulation studies. Please contact the laboratory at [phone] for redraw instructions. Automated basophil %Ordered By: Marii Christiansen on 12-10-2023 Basophils/100 WBC (Bld) 1.0 % Normal . [facility] Comment on above: Performed By: #### B LAUNDROMAT MANAGER, CK, HS TROP, PT, PTT, BMP, PHOS, MG, T4F, TSH3, HCGQUAL, CBC #### [facility] [address] [place] [place] [address] Automated basophil countOrde red By: Marii Christiansen on 12-10-2023 Basophils (Bld) [#/Vol] 0.1 10*3/uL Normal 0.0-0.2 [facility] Comment on above: Result Comment: PERF ORMED BY: [place] [address] PATHOLOGIST ADMINISTRATIVE SPECIALIST JOHNIE BOSS M.D. Performed By: #### B LAUNDROMAT MANAGER, CK, HS TROP, PT, PTT, BMP, PHOS, MG, T4F, TSH3, HCGQUAL, CBC #### [address] Automated blood monocyte cou ntOrdered By: Marii Christiansen on 12-10-2023 Monocytes (Bld) [#/Vol] 0.5 10*3/uL Normal 0.0-0.8 [facility] Comment on above: Performed By: #### B LAUNDROMAT MANAGER, CK, HS TROP, PT, PTT, BMP, PHOS, MG, T4F, TSH3, HCGQUAL, CBC #### [address] Automated eosinophil %Ordere d By: Marii Christiansen on 12-10-2023 Eosinophils/100 WBC (Bld) 1.7 % Normal . [facility] Comment on above: Performed By: #### B LAUNDROMAT MANAGER, CK, HS TROP, PT, PTT, BMP, PHOS, MG, T4F, TSH3, HCGQUAL, CBC #### [address] Automated eosinophil countOr dered By: Marii Christiansen on 12-10-2023 Eosinophils (Bld) [#/Vol] 0.1 10*3/uL Normal 0.0-0.45 [facility] Comment on above: Performed By: #### B LAUNDROMAT MANAGER, CK, HS TROP, PT, PTT, BMP, PHOS, MG, T4F, TSH3, HCGQUAL, CBC #### [address] Automated monocyte %Ordered By: Marii Christiansen on 12-10-2023 Monocytes/100 WBC (Bld) 6.4 % Normal . [facility] Comment on above: Performed By: #### B LAUNDROMAT MANAGER, CK, HS TROP, PT, PTT, BMP, PHOS, MG, T4F, TSH3, HCGQUAL, CBC #### [facility] [address] Automated neutrophil %Ordere d By: Marii Christiansen on 12-10-2023 Neutrophils/100 WBC (Bld) 69.0 % Normal . [facility] Comment on above: Performed By: #### B LAUNDROMAT MANAGER, CK, HS TROP, PT, PTT, BMP, PHOS, MG, T4F, TSH3, HCGQUAL, CBC #### [address] BNP ser/plasOrdered By: Priya Christiansen on 12-10-2023 Natriuretic peptide B (Bld) [Mass/Vol] 12.0 pg/mL Normal 5-100 [facility] Comment on above: Result Comment: PERF ORMED BY: [place] [address] PATHOLOGIST ADMINISTRATIVE SPECIALIST JOHNIE BOSS M.D. Performed By: #### B LAUNDROMAT MANAGER, CK, HS TROP, PT, PTT, BMP, PHOS, MG, T4F, TSH3, HCGQUAL, CBC #### [address] Basic Metabolic Panelon 11-13 Creatinine Clr Calc Pharmacy 144.76 Normal [facility] Comment on above: Performed By: #### B LAUNDROMAT MANAGER, CK, HS TROP, PT, PTT, BMP, PHOS, MG, T4F, TSH3, HCGQUAL, CBC ####[address] GFR/1.73 sq M.predicted MDRD (S/P/Bld) [Vol rate/Area] mL/min/{1.73_m2} Normal [facility] Comment on above: Performed By: #### B LAUNDROMAT MANAGER, CK, HS TROP, PT, PTT, BMP, PHOS, MG, T4F, TSH3, HCGQUAL, CBC ####[place] [address] [address] Calcium [Mass/volume] in Ser um or PlasmaOrdered By: Marii Christiansen on 12-10-2023 Calcium [Mass/Vol] 9.3 mg/dL Normal 8.6-10.3 [facility] Comment on above: Performed By: #### B LAUNDROMAT MANAGER, CK, HS TROP, PT, PTT, BMP, PHOS, MG, T4F, TSH3, HCGQUAL, CBC ####[facility] Carbon dioxide, total [Moles /volume] in Serum or PlasmaOrdered By: Marii Christiansen on 12-10-2023 CO2 [Moles/Vol] 26.2 mmol/L Normal 21.0-31.0 [facility] Comment on above: Performed By: #### B LAUNDROMAT MANAGER, CK, HS TROP, PT, PTT, BMP, PHOS, MG, T4F, TSH3, HCGQUAL, CBC ####[facility] Chloride [Moles/volume] in S tushar or PlasmaOrdered By: Marii Christiansen on 12-10-2023 Chloride [Moles/Vol] 108 mmol/L High 98-107 [facility] Comment on above: Performed By: #### B LAUNDROMAT MANAGER, CK, HS TROP, PT, PTT, BMP, PHOS, MG, T4F, TSH3, HCGQUAL, CBC ####[facility] Choriogonadotropin.beta subu nit [Units/volume] in Serum or PlasmaOrdered By: Marii Christiansen on 12-10-2023 HCG.beta subunit Qn Negative [facility] Complete Blood Count Auto Di ffon 12-10-2023 Mean Corpuscular HGB Conc 32.5 g/dL Normal 32.0-35.0 [facility] Comment on above: Performed By: #### B LAUNDROMAT MANAGER, CK, HS TROP, PT, PTT, BMP, PHOS, MG, T4F, TSH3, HCGQUAL, CBC #### [facility] [address] Monocytes/100 WBC (Bld) 16.94 % Normal 0.00-20.00 [facility] Comment on above: Performed By: #### B LAUNDROMAT MANAGER, CK, HS TROP, PT, PTT, BMP, PHOS, MG, T4F, TSH3, HCGQUAL, CBC #### [facility] [address] NRBC% 0.1 /100{WBC} Normal 0-0.5 [facility] Comment on above: Performed By: #### B LAUNDROMAT MANAGER, CK, HS TROP, PT, PTT, BMP, PHOS, MG, T4F, TSH3, HCGQUAL, CBC #### [address] Creatine kinase [Enzymatic a ctivity/volume] in Serum or PlasmaOrdered By: Marii Christiansen on 12-10-2023 CK [Catalytic activity/Vol] 90 U/L Normal 30-223 [facility] Comment on above: Performed By: #### B LAUNDROMAT MANAGER, CK, HS TROP, PT, PTT, BMP, PHOS, MG, T4F, TSH3, HCGQUAL, CBC ####[address] Creatinine [Mass/volume] in Serum or PlasmaOrdered By: Marii Christiansen on 12-10-2023 Creatinine [Mass/Vol] 0.63 mg/dL Normal 0.60-1.20 [facility] Comment on above: Performed By: #### B LAUNDROMAT MANAGER, CK, HS TROP, PT, PTT, BMP, PHOS, MG, T4F, TSH3, HCGQUAL, CBC ####[address] ECG 12 lead ECGon 12-10-2023 ECG 12 lead ECG [facility] Main [place] [address] [place] [address] Electrocardiograph Report Signed Patient: Shazia Chou MR#: [id number] : 1990 Acct:[id number] Age/Sex: 32 / F ADM Date: 12/10/23 Loc: ER Room: Type: [facility] ER Attending Dr: Ordering Provider: Marii [...] sinus rhythm Confirmed by Jaylon YANES DO ([id number]) on 12/10/2023 3:20:27 PM Referred By: Electronically Signed By:Jaylon YANES DO Transcribed By: MUS Signed By Jaylon Yanes DO 0 12/10/23 1520 Normal [facility] Erythrocyte distribution wid th [Ratio] by Automated countOrdered By: Marii Christiansen on 12-10-2023 Erythrocyte distribution width (RBC) [Ratio] 18.2 % High 11.9-15.3 [facility] Comment on above: Performed By: #### B LAUNDROMAT MANAGER, CK, HS TROP, PT, PTT, BMP, PHOS, MG, T4F, TSH3, HCGQUAL, CBC #### [facility] [address] Erythrocytes [#/volume] in B lood by Automated countOrdered By: Marii Christiansen on 12-10-2023 RBC (Bld) [#/Vol] 3.88 10*6/uL Normal 3.60-5.00 [facility] Comment on above: Performed By: #### B LAUNDROMAT MANAGER, CK, HS TROP, PT, PTT, BMP, PHOS, MG, T4F, TSH3, HCGQUAL, CBC #### [facility] [address] [place] [id number] [facility] Glucose [Mass/volume] in Ser um or PlasmaOrdered By: Marii Christiansen on 12-10-2023 Glucose [Mass/Vol] 84 mg/dL Normal 70-100 [facility] Comment on above: ADA recommended refe rence rangeRandom Glucose Reference Range is dependent on time and content of last meal. Glucose of more than 200 mg/dL in a nonstressed, ambulatory subject supports the diagnosis of Diabetes Mellitus. Result Comment: [place] om Glucose Reference Range is dependent on time and content of last meal. Glucose of more than 200 mg/dL in a nonstressed, ambulatory subject supports the diagnosis of Diabetes Mellitus. ADA recommended reference range Performed By: #### B LAUNDROMAT MANAGER, CK, HS TROP, PT, PTT, BMP, PHOS, MG, T4F, TSH3, HCGQUAL, CBC ####[facility] [address] [place] [address] HCG,Qualitative Serumon 11-13 HCG,Qualitative Serum Negative Normal [facility] Comment on above: Result Comment: PERF ORMED BY: [place] [address] PATHOLOGIST ADMINISTRATIVE SPECIALIST JOHNIE BOSS M.D. Performed By: #### B LAUNDROMAT MANAGER, CK, HS TROP, PT, PTT, BMP, PHOS, MG, T4F, TSH3, HCGQUAL, CBC ####[address] Hematocrit [Volume Fraction] of Blood by Automated countOrdered By: Marii Christiansen on 12-10-2023 Hematocrit (Bld) [Volume fraction] 34.4 % Normal 34.0-46.4 [facility] Comment on above: Performed By: #### B LAUNDROMAT MANAGER, CK, HS TROP, PT, PTT, BMP, PHOS, MG, T4F, TSH3, HCGQUAL, CBC #### [facility] [address] [place] [place] [address] Hemoglobin [Mass/volume] in BloodOrdered By: Marii Christiansen on 12-10-2023 Hemoglobin (Bld) [Mass/Vol] 11.2 g/dL Low 11.8-15.4 [facility] Comment on above: Performed By: #### B LAUNDROMAT MANAGER, CK, HS TROP, PT, PTT, BMP, PHOS, MG, T4F, TSH3, HCGQUAL, CBC #### [facility] [address] [place] [place] [address] INR in Platelet poor plasma by Coagulation assayOrdered By: Marii Christiansen on 12-10-2023 INR Coag (PPP) [Relative time] 1.0 {INR} Normal [facility] Comment on above: INR Therapeutic Rang e [...] 3 - 4.5 Performed By: #### B LAUNDROMAT MANAGER, CK, HS TROP, PT, PTT, BMP, PHOS, MG, T4F, TSH3, HCGQUAL, CBC ####[facility] Esp[address] Leukocytes [#/volume] correc caitlin for nucleated erythrocytes in Blood by Automated counOrdered By: Marii Christiansen on 12-10-2023 WBC corrected for nucl RBC Auto (Bld) [#/Vol] 7.1 10*3/uL 3.8-11.6 [facility] Leukocytes [#/volume] in Blo od by Automated countOrdered By: Marii Christiansen on 12-10-2023 WBC (Bld) [#/Vol] 7.1 10*3/uL Normal 3.8-11.6 [facility] Comment on above: Performed By: #### B LAUNDROMAT MANAGER, CK, HS TROP, PT, PTT, BMP, PHOS, MG, T4F, TSH3, HCGQUAL, CBC #### [facility] [address] Lymphocytes [#/volume] in Bl ood by Automated countOrdered By: Marii Christiansen on 12-10-2023 Lymphocytes (Bld) [#/Vol] 1.6 10*3/uL Normal 1.00-4.8 [facility] Comment on above: Performed By: #### B LAUNDROMAT MANAGER, CK, HS TROP, PT, PTT, BMP, PHOS, MG, T4F, TSH3, HCGQUAL, CBC #### [facility] [address] Lymphocytes/100 leukocytes i n Blood by Automated countOrdered By: Marii Christiansen on 12-10-2023 Lymphocytes/100 WBC (Bld) 21.9 % Normal . [facility] Comment on above: Performed By: #### B LAUNDROMAT MANAGER, CK, HS TROP, PT, PTT, BMP, PHOS, MG, T4F, TSH3, HCGQUAL, CBC #### [facility] [address] MCH [Entitic mass] by Automa caitlin countOrdered By: Marii Christiansen on 12-10-2023 MCH (RBC) [Entitic mass] 28.8 pg Normal 24.7-34.3 [facility] Comment on above: Performed By: #### B LAUNDROMAT MANAGER, CK, HS TROP, PT, PTT, BMP, PHOS, MG, T4F, TSH3, HCGQUAL, CBC #### [facility] [address] MCHC Auto (RBC) [Mass/Vol]Or dered By: Marii Christiansen on 12-10-2023 MCHC (RBC) [Mass/Vol] 32.5 g/dL 32.0-35.0 [facility] MCV [Entitic volume] by Auto mated countOrdered By: Marii Christiansen on 12-10-2023 MCV (RBC) [Entitic vol] 88.7 fL Normal 80-100 [facility] Comment on above: Performed By: #### B LAUNDROMAT MANAGER, CK, HS TROP, PT, PTT, BMP, PHOS, MG, T4F, TSH3, HCGQUAL, CBC #### [facility] [address] Magnesium [Mass/volume] in S tushar or PlasmaOrdered By: Marii Christiansen on 12-10-2023 Magnesium [Mass/Vol] 1.9 mg/dL Normal 1.9-2.7 [facility] Comment on above: Performed By: #### B LAUNDROMAT MANAGER, CK, HS TROP, PT, PTT, BMP, PHOS, MG, T4F, TSH3, HCGQUAL, CBC ####[facility] [id number] Monocyte distribution width [Entitic volume] in Blood by AutomatedOrdered By: Marii Christiansen on 12-10-2023 Monocyte distribution width Auto (Bld) [Entitic vol] 16.94 % 0.00-20.00 [facility] Neutrophils [#/volume] in Bl ood by Automated countOrdered By: Marii Christiansen on 12-10-2023 Neutrophils (Bld) [#/Vol] 4.9 10*3/uL Normal 1.8-7.7 [facility] Comment on above: Performed By: #### B LAUNDROMAT MANAGER, CK, HS TROP, PT, PTT, BMP, PHOS, MG, T4F, TSH3, HCGQUAL, CBC #### [facility] [address] [place] [id number] [facility] No Panel InformationOrdered By: Marii Christiansen on 12-10-2023 Estimated GFR (CKD-EPI) > 60.0 mL/Min [facility] Creatinine Clearance (Chem 144.76 [facility] Nucleated erythrocytes [Pres ence] in Blood by Automated countOrdered By: Marii Christiansen on 12-10-2023 Nucleated RBC Auto Ql (Bld) 0.1 /100{WBC} 0-0.5 [facility] Partial Thromboplastin Timeo n 12-10-2023 aPTT Coag (Bld) [Time] 28.8 s Normal 25.1-36.5 [facility] Comment on above: Result Comment: A he matocrit value greater than 55% may lead to inaccurate results in coagulation testing. Patients having hematocrit values >55% require a special collection tube for coagulation studies. Please contact the laboratory at [phone] for redraw instructions. PERFORMED BY: [facility] [address] [place] [address] PATHOLOGIST ADMINISTRATIVE SPECIALIST JOHNIE BOSS M.D. Performed By: #### B LAUNDROMAT MANAGER, CK, HS TROP, PT, PTT, BMP, PHOS, MG, T4F, TSH3, HCGQUAL, CBC ####[facility] [address] [place] [address] [facility] Phosphate [Mass/volume] in S tushar or PlasmaOrdered By: Marii Christiansen on 12-10-2023 Phosphate [Mass/Vol] 3.7 mg/dL Normal 2.5-4.5 [facility] Comment on above: Performed By: #### B LAUNDROMAT MANAGER, CK, HS TROP, PT, PTT, BMP, PHOS, MG, T4F, TSH3, HCGQUAL, CBC ####[facility] [id number] [address] Platelet mean volume [Entiti c volume] in Blood by Automated countOrdered By: Marii Christiansen on 12-10-2023 Platelet mean volume (Bld) [Entitic vol] 9.2 fL Normal 6.3-10.7 [facility] Comment on above: Performed By: #### B LAUNDROMAT MANAGER, CK, HS TROP, PT, PTT, BMP, PHOS, MG, T4F, TSH3, HCGQUAL, CBC #### [facility] [address] Platelets [#/volume] in Bloo d by Automated countOrdered By: Marii Christiansen on 12-10-2023 Platelets (Bld) [#/Vol] 331 10*3/uL Normal 150-450 [facility] Comment on above: Performed By: #### B LAUNDROMAT MANAGER, CK, HS TROP, PT, PTT, BMP, PHOS, MG, T4F, TSH3, HCGQUAL, CBC #### [facility] [address] [place] [address] Potassium [Moles/volume] in Serum or PlasmaOrdered By: Marii Christiansen on 12-10-2023 Potassium [Moles/Vol] 4.0 mmol/L Normal 3.5-5.1 [facility] Comment on above: Performed By: #### B LAUNDROMAT MANAGER, CK, HS TROP, PT, PTT, BMP, PHOS, MG, T4F, TSH3, HCGQUAL, CBC ####[facility] Prothrombin time (PT)Ordered By: Marii Christiansen on 12-10-2023 PT Coag (PPP) [Time] 11.3 s Normal 9.0-12.9 [facility] Comment on above: A hematocrit value g reater than 55% may lead to inaccurate results in coagulation testing. Patients having hematocrit values >55% require a special collection tube for coagulation studies. Please contact the laboratory at [phone] for redraw instructions. Result Comment: A he matocrit value greater than 55% may lead to inaccurate results in coagulation testing. Patients having hematocrit values >55% require a special collection tube for coagulation studies. Please contact the laboratory at [phone] for redraw instructions. Performed By: #### B LAUNDROMAT MANAGER, CK, HS TROP, PT, PTT, BMP, PHOS, MG, T4F, TSH3, HCGQUAL, CBC ####[address] Serum or plasma anion gap de terminationOrdered By: Marii Christiansen on 12-10-2023 Anion gap [Moles/Vol] 9.8 mmol/L Normal 6.0-15.0 [facility] Comment on above: Performed By: #### B LAUNDROMAT MANAGER, CK, HS TROP, PT, PTT, BMP, PHOS, MG, T4F, TSH3, HCGQUAL, CBC ####[address] Sodium [Moles/volume] in Ser um or PlasmaOrdered By: Marii Christiansen on 12-10-2023 Sodium [Moles/Vol] 140 mmol/L Normal 136-145 [facility] Comment on above: Performed By: #### B LAUNDROMAT MANAGER, CK, HS TROP, PT, PTT, BMP, PHOS, MG, T4F, TSH3, HCGQUAL, CBC ####[address] Thyrotropin [Units/volume] i n Serum or PlasmaOrdered By: Marii Christiansen on 12-10-2023 TSH Qn 0.61 m[IU]/L Normal 0.45-5.33 [facility] Comment on above: Performed By: #### B LAUNDROMAT MANAGER, CK, HS TROP, PT, PTT, BMP, PHOS, MG, T4F, TSH3, HCGQUAL, CBC ####[address] Thyroxine (T4) free [Mass/vo lume] in Serum or PlasmaOrdered By: Marii Christiansen on 12-10-2023 Free T4 [Mass/Vol] 0.82 ng/dL Normal 0.61-1.12 [facility] Comment on above: Performed By: #### B LAUNDROMAT MANAGER, CK, HS TROP, PT, PTT, BMP, PHOS, MG, T4F, TSH3, HCGQUAL, CBC ####[place] [id number] [facility] Troponin I High Sensitivityo n 12-10-2023 Troponin I High Sensitivity < 2.3 Normal 0.0-15.0 [facility] Comment on above: Result Comment: PERF ORMED BY: [place] [address] PATHOLOGIST ADMINISTRATIVE SPECIALIST JOHNIE BOSS M.D. Performed By: #### B LAUNDROMAT MANAGER, CK, HS TROP, PT, PTT, BMP, PHOS, MG, T4F, TSH3, HCGQUAL, CBC ####[place] [address] [facility] Troponin I.cardiac [Mass/vol ume] in Serum or Plasma by Detection limit <= 0.01 ng/Ordered By: Marii Christiansen on 12-10-2023 Troponin I.cardiac DL <= 0.01 ng/mL [Mass/Vol] < 2.3 pg/mL 0.0-15.0 [facility] Urea nitrogen [Mass/volume] in Serum or PlasmaOrdered By: Marii Christiansen on 12-10-2023 Urea nitrogen [Mass/Vol] 14 mg/dL Normal 7-25 [facility] Comment on above: Performed By: #### B LAUNDROMAT MANAGER, CK, HS TROP, PT, PTT, BMP, PHOS, MG, T4F, TSH3, HCGQUAL, CBC ####[place] [id number] [facility] XR chest 2V*on 12-10-2023 XR chest 2V* [facility] Main [place] [address] [place] [address] XRay Report Signed Patient: Shazia Chou MR#: [id number] : 1990 Acct:[id number] Age/Sex: 32 / F ADM Date: 12/10/23 Loc: ER Room: Type: [facility] ER Attending Dr: Copies to: Marii [...] Gaye Peraza M.D.12/10/2023 2:29 PM Dictation Location: [place] [address] Transcribed By: [facility] 12/10/23 1429 Dictated By: Gaye Peraza MD 12/10/231427 Signed By: 12/10/23 1429 Normal [facility] Consent for Treatmenton 11-13 Consent for Treatment [id number] F Normal [facility] [place] Mamm Diag w/CAD if perf [...] very important to your health. The current [employer] and [employer] Cancer [...] Category 1-Negative Recommendation: Normal interval follow-up Normal [facility] US Breast Unilateral Lt Comp leteon 12-09-2023 US Breast Unilateral Lt Complete Exam Date/Time: 12/09/2023 10:07 EDT Reason for Exam: N63.21 Report PLEASE REFER TO THE MAMMOGRAM REPORT. Ordering Provider: Jennie Ames FINAL REPORT Dictated: 12/09/2023 4:28 pm Mychal Cabezas M.D. Signed (Electronic Signature): 12/09/2023 4:28 pm Signed by: Mychal Cabezas M.D. Transcribed by: MARCO Technologist: KYLE Normal [facility] Physician Orderon 12-08-2023 Physician Order [id number] FF Normal [facility] CT ABDOMEN PELVIS W IV CONTR [...] result Normal [facility] CBC panel Auto (Bld)on 08-31 Erythrocyte distribution width (RBC) [Ratio] 14.7 % Normal 11.5-15.0 [facility] Comment on above: Order Comment: Speci men Type: BLOOD SPECIMEN Ordering Facility: [facility] Address: [address] [place] [address] Performed By: #### 5 8410-2 #### [facility] CLIA [id number] [address] [place] [address] [place] Hematocrit (Bld) [Volume fraction] 36.9 % Normal 36.0-46.0 [facility] Comment on above: Order Comment: Speci men Type: BLOOD SPECIMEN Ordering Facility: [facility] Address: [address] [place] [address] Performed By: #### 5 8410-2 #### [facility] CLIA [id number] [address] [place] [address] [place] Hemoglobin (Bld) [Mass/Vol] 11.7 g/dL Normal 11.5-15.5 [facility] Comment on above: Order Comment: Speci men Type: BLOOD SPECIMEN Ordering Facility: [facility] Address: [address] [place] [address] Performed By: #### 5 8410-2 #### [facility] CLIA [id number] [address] [place] [address] [place] MCH (RBC) [Entitic mass] 29.8 pg Normal 26.0-34.0 [facility] Comment on above: Order Comment: Speci men Type: BLOOD SPECIMEN Ordering Facility: [facility] Address: [address] [place] [address] Performed By: #### 5 8410-2 #### [facility] CLIA [id number] [address] [place] [address] [place] MCHC (RBC) [Mass/Vol] 31.7 g/dL Normal 30.5-36.0 [facility] Comment on above: Order Comment: Speci men Type: BLOOD SPECIMEN Ordering Facility: [facility] Address: [address] [place] [address] Performed By: #### 5 8410-2 #### [facility] CLIA [id number] [address] [place] [address] [place] MCV (RBC) [Entitic vol] 93.9 fL Normal 80.0-100.0 [facility] Comment on above: Order Comment: Speci men Type: BLOOD SPECIMEN Ordering Facility: [facility] Address: [address] [place] [address] Performed By: #### 5 8410-2 #### [facility] CLIA [id number] [address] [place] [address] [place] Nucleated RBC (Bld) [#/Vol] 10*3/uL Normal <0.01 [facility] Comment on above: Order Comment: Speci men Type: BLOOD SPECIMEN Ordering Facility: [facility] Address: [address] [place] [address] Performed By: #### 5 8410-2 #### [facility] CLIA [id number] [address] [place] [address] [place] Platelet mean volume (Bld) [Entitic vol] 11.1 fL Normal 9.0-12.7 [facility] Comment on above: Order Comment: Speci men Type: BLOOD SPECIMEN Ordering Facility: [facility] Address: [address] [place] [address] Performed By: #### 5 8410-2 #### [facility] CLIA [id number] [address] [place] [address] [place] Platelets (Bld) [#/Vol] 297 10*3/uL Normal 150-400 [facility] Comment on above: Order Comment: Speci men Type: BLOOD SPECIMEN Ordering Facility: [facility] Address: [address] [place] [address] Performed By: #### 5 8410-2 #### [facility] CLIA [id number] [address] [place] [address] [place] RBC (Bld) [#/Vol] 3.93 10*6/uL Normal 3.90-5.20 [facility] Comment on above: Order Comment: Speci men Type: BLOOD SPECIMEN Ordering Facility: [facility] Address: [address] [place] [address] Performed By: #### 5 8410-2 #### [facility] CLIA [id number] [address] [place] [address] [place] WBC (Bld) [#/Vol] 6.82 10*3/uL Normal 3.70-11.00 [facility] Comment on above: Order Comment: Speci men Type: BLOOD SPECIMEN Ordering Facility: [facility] Address: [facility] [place] [address] Performed By: #### 5 8410-2 #### [facility] CLIA [id number] [address] [place] [id number] [place] CNOVon 08-31-2023 CNOV Office Visit ([id number] ) -------- CASSIASHAZIA MALDONADO ([id number]) 1990 F Date Time Provider Department 08/31/23 11:00 AM LEONELA GROSSMAN [id number] During your visit today, we recorded the following information about you: Temperature Pulse Blood pressure Weight 97.9 degrees 78/minute 123/88 89.4 kg Height 1.702 m [place], [place] 08/31/2023 11:14 AM Signed What is [...] Take 40 mg by mouth once daily. pxihgftjtmvn-wvq-oazm-FA -vit K (BARIATRIC MULTIVITAMINS) 45 mg iron- [...] 08-31-2023 Albumin [Mass/Vol] 4.4 g/dL Normal 3.9-4.9 [facility] Comment on above: Order Comment: Speci men Type: BLOOD SPECIMEN Ordering Facility: [facility] Address: [address] [place] [address] Performed By: #### L SONALI, 98990-6 #### [facility] CLIA [id number] [address] [place] [address] [place] ALP [Catalytic activity/Vol] 75 U/L Normal 34-123 [facility] Comment on above: Order Comment: Speci men Type: BLOOD SPECIMEN Ordering Facility: [facility] Address: [address] [place] [address] Performed By: #### L SONALI, 87393-8 #### [facility] CLIA [id number] [address] [place] [address] [place] ALT [Catalytic activity/Vol] 16 U/L Normal 7-38 [facility] Comment on above: Order Comment: Speci men Type: BLOOD SPECIMEN Ordering Facility: [facility] Address: [address] [place] [address] Performed By: #### L IPNF, #### [facility] CLIA [id number] [address] [place] [address] [place] Anion gap [Moles/Vol] 11 mmol/L Normal 9-18 [facility] Comment on above: Order Comment: Speci men Type: BLOOD SPECIMEN Ordering Facility: [facility] Address: [address] [place] [address] Performed By: #### L IPNF, #### [facility] CLIA [id number] [place] [address] [place] AST [Catalytic activity/Vol] 21 U/L Normal 13-35 [facility] Comment on above: Order Comment: Speci men Type: BLOOD SPECIMEN Ordering Facility: [facility] Address: [address] [place] [address] Performed By: #### L IPNF, #### [facility] CLIA [id number] [address] [place] [address] [place] Bilirubin [Mass/Vol] 0.2 mg/dL Normal 0.2-1.3 [facility] Comment on above: Order Comment: Speci men Type: BLOOD SPECIMEN Ordering Facility: [facility] Address: [address] [place] [address] Performed By: #### L IPNF, #### [facility] CLIA [id number] [place] [address] [place] Calcium [Mass/Vol] 9.7 mg/dL Normal 8.5-10.2 [facility] Comment on above: Order Comment: Speci men Type: BLOOD SPECIMEN Ordering Facility: [facility] Address: [address] [place] [address] Performed By: #### L IPNF, #### [facility] CLIA [id number] [place] [address] [place] Chloride [Moles/Vol] 106 mmol/L High 97-105 [facility] Comment on above: Order Comment: Speci men Type: BLOOD SPECIMEN Ordering Facility: [facility] Address: [address] [place] [address] Performed By: #### L IPNF, #### [facility] CLIA [id number] [address] [place] [address] [place] CO2 [Moles/Vol] 25 mmol/L Normal 22-30 [facility] Comment on above: Order Comment: Speci men Type: BLOOD SPECIMEN Ordering Facility: [facility] Address: [address] [place] [address] Performed By: #### L IPNF, #### [facility] CLIA [id number] [address] [place] [address] [place] Creatinine [Mass/Vol] 0.55 mg/dL Low 0.58-0.96 [facility] Comment on above: Order Comment: Speci men Type: BLOOD SPECIMEN Ordering Facility: [facility] Address: [address] [place] [address] Performed By: #### L IPNF, #### [facility] CLIA [id number] [address] [place] [address] Creatinine and Glomerular filtration rate.predicted panel (S/P/Bld) 124 mL/min/1.73m??? Normal >=60 [facility] Comment on above: Order Comment: Speci men Type: BLOOD SPECIMEN Ordering Facility: [facility] Address: [address] [place] [address] Result Comment: Brenda mated Glomerular Filtration Rate [...] GFR. Performed By: #### L IPNF, #### [facility] CLIA [id number] [place] [address] [place] Glucose [Mass/Vol] 93 mg/dL Normal 74-99 [facility] Comment on above: Order Comment: Philip birmingham Type: BLOOD SPECIMEN Ordering Facility: [facility] Address: [address] [place] [address] Result Comment: The [place] Diabetes Association (ADA) provides guidance for cutoff [...] Standards of Medical Care in Diabetes 2016, [place] Diabetes Association. Diabetes Care. 2016.39(Suppl 1). Performed By: #### L IPMARTHA, 02856-2 #### [facility] CLIA [id number] [address] [place] [address] [place] Potassium [Moles/Vol] 4.7 mmol/L Normal 3.7-5.1 [facility] Comment on above: Order Comment: Philip birmingham Type: BLOOD SPECIMEN Ordering Facility: [facility] Address: [address] [place] [address] Performed By: #### L IPNF, 12373-9 #### [facility] CLIA [id number] [address] [place] [address] [place] Protein [Mass/Vol] 7.3 g/dL Normal 6.3-8.0 [facility] Comment on above: Order Comment: Philip birmingham Type: BLOOD SPECIMEN Ordering Facility: [facility] Address: [address] [place] [address] Performed By: #### L IPMARTHA, 52655-5 #### [facility] CLIA [id number] [address] [place] [address] [place] Sodium [Moles/Vol] 142 mmol/L Normal 136-144 [facility] Comment on above: Order Comment: Philip birmingham Type: BLOOD SPECIMEN Ordering Facility: [facility] Address: [address] [facility] [address] Performed By: #### L IPNF, 90504-2 #### [facility] CLIA [id number] [place] Urea nitrogen [Mass/Vol] 9 mg/dL Normal 7-21 [facility] Comment on above: Order Comment: Speci valencia Type: BLOOD SPECIMEN Ordering Facility: [facility] Address: [address] [place] [address] Performed By: #### L IPNF, 48631-8 #### [facility] CLIA [id number] [address] [place] HISTORY PHYSICALon HISTORY PHYSICAL HNO ID: [id number] Author: Leonela Grossman MD Service: ? Author [...] Take 40 mg by mouth once daily. uyshfinrmloo-htq-aaro-FA -vit K (BARIATRIC MULTIVITAMINS) 45 mg iron- 800 mcg-120 mcg cap Take by mouth. calcium citrate-vitamin D3 500 mg-12.5 mcg /5 gram powd Take by mouth. iv contrast (will be provided with radiology test) MRI PANC/TNAMAY Inject, intravenously, once for 1 dose. No [...] NONFASTINGon Cholesterol [Mass/Vol] 154 mg/dL Normal <200 [facility] Comment on above: Order Comment: Philip birmingham Type: BLOOD SPECIMEN Ordering Facility: [facility] Address: [address] [place] [address] Result Comment: <200 mg/dL, Desirable 200-239 mg/dL, Borderline high >239 mg/dL, High Performed By: #### L IPNF, 59041-0 #### [facility] CLIA [id number] [address] [place] [address] [place] HDL CHOLESTEROL, NF 69 mg/dL Normal >39 [facility] Comment on above: Order Comment: Philip birmingham Type: BLOOD SPECIMEN Ordering Facility: [facility] Address: [address] [place] [address] Result Comment: 40-5 9 mg/dL, Acceptable >59 mg/dL, High: Negative risk factor for coronary heart disease <40 mg/dL, Low: Positive risk factor for coronary heart disease Performed By: #### L IPNF, 73831-7 #### [facility] CLIA [id number] [facility] LDL CHOLESTEROL, NF 66 mg/dL Normal <100 [facility] Comment on above: Order Comment: Philip birmingham Type: BLOOD SPECIMEN Ordering Facility: [facility] Address: [address] [place] [address] Result Comment: <100 mg/dL, Optimal 100-129 mg/dL, Near optimal/above optimal 130-159 mg/dL, Borderline high 160-189 mg/dL, High >189 mg/dL, Very high Secondary prevention optimal LDL Cholesterol levels are recommended to be < 70 mg/dL Performed By: #### L IPNF, 34853-3 #### [facility] CLIA [id number] [address] [place] [address] LDL/HDL RATIO, NF 0.96 mg/dL Normal <2.54 [facility] Comment on above: Order Comment: Philip birmingham Type: BLOOD SPECIMEN Ordering Facility: [facility] Address: [address] [place] [address] Result Comment: Refaby kasper: 1. National Cholesterol Education Program ATP III Guideline At-A-Glance Quick Desk Reference: National Heart, Lung, and Blood [place]. National Institutes of Health. 2001: NIH Publication No. 01-3305. 2. An International Atherosclerosis Society position paper: global recommendations for the management of dyslipidemia: executive summary, Atherosclerosis. 2014: 232(2):410-413. Performed By: #### L IPNF, 96014-3 #### [facility] CLIA [id number] [address] [place] [address] [place] [facility] NON HDL CHOL, NF 85 mg/dL Normal <130 [facility] Comment on above: Order Comment: Philip valencia Type: BLOOD SPECIMEN Ordering Facility: [facility] Address: [address] [place] [address] Result Comment: <130 mg/dL, Optimal 130-159 mg/dL, Near optimal/above optimal 160-189 mg/dL, Borderline high 190-219 mg/dL, High >219 mg/dL, Very high Secondary prevention optimal non HDL Cholesterol levels are recommended to be <100 mg/dL Performed By: #### L IPNF, 49096-8 #### [facility] CLIA [id number] [address] [place] [address] [place] T CHOL/HDL RATIO NF 2.23 mg/dL Normal <5.10 [facility] Comment on above: Order Comment: Speci men Type: BLOOD SPECIMEN Ordering Facility: [facility] Address: [address] [place] [address] Performed By: #### L IPNF, 24644-9 #### [facility] CLIA [id number] [address] [place] [address] [place] TRIGLYCERIDES, NF 96 mg/dL Normal <150 [facility] Comment on above: Order Comment: Speci men Type: BLOOD SPECIMEN Ordering Facility: [facility] Address: [address] [place] [address] Result Comment: <150 mg/dL, Normal 150-199 mg/dL, Borderline high 200-499 mg/dL, High >499 mg/dL, Very high Performed By: #### L IPNF, 44429-7 #### [facility] CLIA [id number] [address] [place] [address] [place] VLDL CHOLESTEROL, NF 19 mg/dL Normal <30 [facility] Comment on above: Order Comment: Speci men Type: BLOOD SPECIMEN Ordering Facility: [facility] Address: [address] [place] [address] Performed By: #### L IPNF, 21808-8 #### [facility] CLIA [id number] [address] [place] [address] [place] PHOSPHATIDYLETHANOL (PETH)on 08-31-2023 EER PETH See Note Normal [facility] Comment on above: Order Comment: Speci men Type: BLOOD SPECIMEN Ordering Facility: [facility] Address: [address] [place] [address] Result Comment: Auth orized individuals can access the Simfinit Enhanced Report using the following link: [email or web address] Performed By: #### P ETH #### [facility] CLIA [id number] [address] [place] [address] PETH 16:0/18.2 (PLPETH) 244 ng/mL Normal [facility] Comment on above: Order Comment: Speci men Type: BLOOD SPECIMEN Ordering Facility: [facility] Address: [address] [place] [address] Result Comment: Refe rence ranges are not well established. Performed By: #### P ETH #### [facility] CLIA [id number] [address] [place] [address] PETH 16:0/18:1 (POPETH) 169 ng/mL Normal [facility] Comment on above: Order Comment: Speci men Type: BLOOD SPECIMEN Ordering Facility: [facility] Address: [address] [place] [address] Result Comment: PEth 16:0/18:1 (POPEth) Less than 10 ng/mL............Not detected Less than 20 ng/mL............Abstinence or light alcohol consumption 20 - 200 ng/mL................Moderate alcohol consumption Greater than 200 ng/mL........Heavy alcohol consumption or chronic alcohol use (Reference: Sophie Gonzalez and Crystal Zabala 2018 J. Forensic Sci) Performed By: #### P ETH #### [facility] IA [id number] [address] [place] [address] PETH INTERPRETATION See Note Normal [facility] Comment on above: Order Comment: Speci men Type: BLOOD SPECIMEN Ordering Facility: [facility] Address: [address] [place] [address] Result Comment: Phos phatidylethanol (PEth) is a [...] may have falsely elevated PEth concentrations (Larisa RUODLPH et al 2018, Alcoholism Clinical & Experimental Research). This test was developed and its performance characteristics determined by [facility]. It has not been cleared or approved by the U.S. Food and Drug Administration. This test was performed in a CLIA-certified laboratory and is intended for clinical purposes. Performed By: [facility] [address] [place] [address] Apparatus Cleaner: Osmar Salcido MD, PhD CLIA Number: [id number] Performed By: #### P ETH #### [facility] CLIA [id number] [address] [place] [address] Ernesto 08-21-2023 [facility] ([id number]) -------- SHAZIA CHOU ([id number]) 1990 F Date Time Provider Department 08/21/23 LEONELA GROSSMAN [id number] During your visit today, we recorded the following information about you: Sindy Ruvalcaba RN 08/21/2023 10:19 AM Signed Called made to [facility] to push MRI from 08/20 [...] 40 mg by mouth once daily. - mmyoqtznmaqf-dld-zkhn-FA -vit K (BARIATRIC MULTIVITAMINS) 45 mg iron- [...] result Normal [facility] Vitamin Aon 08-16-2023 Interpretation Normal Normal [facility] Comment on above: Result Comment: (NOT E) This test was developed and its performance characteristics determined by [facility]. It has not been cleared or approved by the US Food and Drug Administration. This test was performed in a CLIA certified laboratory and is intended for clinical purposes. Performed By: [facility] [address] [place] [address] Apparatus Cleaner: Osmar Salcido MD, PhD CLIA Number: [id number] Performed By: #### P THNCA, FEBC, FERI, GLYHGB, VD25 #### [place] [address] Production Ski Repairer: Harpal Adair MD #### TYREE OLIVO1, AZN #### [facility] [address] [place] [address] Production Ski Repairer: Patricio Zuñiga MD #### CP, MG, CDP #### [address] [place] [address] Production Ski Repairer: Hilton Armenta MD Retinol (Vitamin A) 0.60 mg/L Normal 0.30-1.20 [facility] Comment on above: Performed By: #### P THNCA, FEBC, FERI, GLYHGB, VD25 #### [facility] [address] [place], [place] [id number] Production Ski Repairer: Harpal Adair MD #### AGNES OLIVO, AZN #### [facility] [address] [place], [place] [id number] Production Ski Repairer: Patricio Zuñiga MD #### ANGEL, MG, CDP #### [address] [place] [address] Production Ski Repairer: Hilton Armenta MD Retinyl Palmitate <0.02 Normal 0.00-0.10 [facility] Comment on above: Performed By: #### P DENNISA, FEBC, FERI, GLYHGB, VD25 #### [facility] [address] [place], [place] [id number] Production Ski Repairer: Harpal Adair MD #### AGNES OLIVO, AZN #### [facility] [address] [place], [place] [id number] Production Ski Repairer: aPtricio Zuñiga MD #### CP, MG, CDP #### [address] [place] [address] Production Ski Repairer: Hilton Armenta MD Alanine aminotransferase [En zymatic activity/volume] in Serum or PlasmaOrdered By: Yoli Norris on 08-15-2023 ALT [Catalytic activity/Vol] 18 U/L Normal 7-52 [facility] Comment on above: Performed By: #### C BC, HEPATIC, BMP, LIPASE #### [facility] [address] [place] [address] [facility] Albumin [Mass/volume] in Ser um or Plasma by Bromocresol green (BCG) dye binding methoOrdered By: Yoli Norris on 08-15-2023 Albumin BCG dye [Mass/Vol] 4.6 g/dL 3.5-5.7 [facility] Alkaline phosphatase [Enzyma tic activity/volume] in Serum or PlasmaOrdered By: Yoli Norris on 08-15-2023 ALP [Catalytic activity/Vol] 77 U/L Normal 34-104 [facility] Comment on above: Performed By: #### C BC, HEPATIC, BMP, LIPASE #### [address] Aspartate aminotransferase [ Enzymatic activity/volume] in Serum or PlasmaOrdered By: Yoli Norris on 08-15-2023 AST [Catalytic activity/Vol] 18 U/L Normal 13-39 [facility] Comment on above: Performed By: #### C BC, HEPATIC, BMP, LIPASE #### [address] Automated basophil %Ordered By: Yoli Norris on 08-15-2023 Basophils/100 WBC (Bld) 0.5 % Normal . [facility] Comment on above: Performed By: #### C BC, HEPATIC, BMP, LIPASE #### [facility] [address] [place] [place] [address] Automated basophil countOrde red By: Yoli Norris on 08-15-2023 Basophils (Bld) [#/Vol] 0.1 10*3/uL Normal 0.0-0.2 [facility] Comment on above: Result Comment: PERF ORMED BY: [place] [address] PATHOLOGIST ADMINISTRATIVE SPECIALIST JOHNIE BOSS M.D. Performed By: #### C BC, HEPATIC, BMP, LIPASE #### [facility] [address] [place] [address] Automated blood monocyte cou ntOrdered By: Yoli Norris on 08-15-2023 Monocytes (Bld) [#/Vol] 0.6 10*3/uL Normal 0.0-0.8 [facility] Comment on above: Performed By: #### C BC, HEPATIC, BMP, LIPASE #### [address] Automated eosinophil %Ordere d By: Yoli Jr on 08-15-2023 Eosinophils/100 WBC (Bld) 2.1 % Normal . [facility] Comment on above: Performed By: #### C BC, HEPATIC, BMP, LIPASE #### [address] Automated eosinophil countOr dered By: Yoli Jr on 08-15-2023 Eosinophils (Bld) [#/Vol] 0.2 10*3/uL Normal 0.0-0.45 [facility] Comment on above: Performed By: #### C BC, HEPATIC, BMP, LIPASE #### [address] Automated monocyte %Ordered By: Yoli Norris on 08-15-2023 Monocytes/100 WBC (Bld) 5.0 % Normal . [facility] Comment on above: Performed By: #### C BC, HEPATIC, BMP, LIPASE #### [address] Automated neutrophil %Ordere d By: Yoli Norris on 08-15-2023 Neutrophils/100 WBC (Bld) 74.6 % Normal . [facility] Comment on above: Performed By: #### C BC, HEPATIC, BMP, LIPASE #### [address] Automated urine color determ inationOrdered By: Yoli Norris on 08-15-2023 Color (U) Yellow Normal Yellow [facility] Comment on above: Order Comment: Name Collection Type:: Clean-Voided Midstream Performed By: #### U A, UHCG #### [address] Basic Metabolic Panelon Creatinine Clr Calc Pharmacy 117.62 Normal [facility] Comment on above: Performed By: #### C BC, HEPATIC, BMP, LIPASE #### [address] GFR/1.73 sq M.predicted MDRD (S/P/Bld) [Vol rate/Area] mL/min/{1.73_m2} Normal [facility] Comment on above: Performed By: #### C BC, HEPATIC, BMP, LIPASE #### [address] Bilirubin Test strip Ql (U)O rdered By: Yoli Norris on 08-15-2023 Bilirubin Ql (U) Negative Negative [facility] Bilirubin.direct [Mass/volum e] in Serum or PlasmaOrdered By: Yoli Norris on 08-15-2023 Bilirubin.direct [Mass/Vol] 0.00 mg/dL 0.03-0.18 [facility] Comment on above: If the DBIL is less than 0.1, IBIL is not able to becalculated. Bilirubin.total [Mass/volume ] in Serum or PlasmaOrdered By: Yoli Norris on 08-15-2023 Bilirubin [Mass/Vol] 0.3 mg/dL Normal 0.3-1.0 [facility] Comment on above: Performed By: #### C BC, HEPATIC, BMP, LIPASE #### [address] abdomen pelvis w conon CT abdomen pelvis w con [facility] [place] [address] CT Scan Report Signed Patient: Shazia Chou MR#: [id number] : 1990 Acct:[id number] Age/Sex: 32 / F ADM Date: 08/15/23 Loc: ER Room: Type: [facility] ER Attending Dr: Copies to: Yoli [...] Gaye Peraza M.D.08/15/2023 1:03 PM Dictation Location: [place] [address] Transcribed By: [facility] 08/15/23 1303 Dictated By: Gaye Peraza MD 08/15/23 1256 Signed By: 08/15/23 1303 Normal [facility] Calcium [Mass/volume] in Ser um or PlasmaOrdered By: Yoli Norris on 08-15-2023 Calcium [Mass/Vol] 9.8 mg/dL Normal 8.6-10.3 [facility] Comment on above: Performed By: #### C BC, HEPATIC, BMP, LIPASE #### [facility] [address] [place] [address] Carbon dioxide, total [Moles /volume] in Serum or PlasmaOrdered By: Yoli Norris on 08-15-2023 CO2 [Moles/Vol] 21.8 mmol/L Normal 21.0-31.0 [facility] Comment on above: Performed By: #### C BC, HEPATIC, BMP, LIPASE #### [address] Chloride [Moles/volume] in S tushar or PlasmaOrdered By: Yoli Norris on 08-15-2023 Chloride [Moles/Vol] 109 mmol/L High 98-107 [facility] Comment on above: Performed By: #### C BC, HEPATIC, BMP, LIPASE #### [address] Complete Blood Count Auto Di ffon 08-15-2023 Mean Corpuscular HGB Conc 32.7 g/dL Normal 32.0-35.0 [facility] Comment on above: Performed By: #### C BC, HEPATIC, BMP, LIPASE #### [address] Monocytes/100 WBC (Bld) 15.46 % Normal 0.00-20.00 [facility] Comment on above: Performed By: #### C BC, HEPATIC, BMP, LIPASE #### [address] NRBC% 0.0 /100{WBC} Normal 0-0.5 [facility] Comment on above: Performed By: #### C BC, HEPATIC, BMP, LIPASE #### [address] Creatinine [Mass/volume] in Serum or PlasmaOrdered By: Yoli Norris on 08-15-2023 Creatinine [Mass/Vol] 0.76 mg/dL Normal 0.60-1.20 [facility] Comment on above: Performed By: #### C BC, HEPATIC, BMP, LIPASE #### [address] Erythrocyte distribution wid th [Ratio] by Automated countOrdered By: Yoli Norris on 08-15-2023 Erythrocyte distribution width (RBC) [Ratio] 15.1 % Normal 11.9-15.3 [facility] Comment on above: Performed By: #### C BC, HEPATIC, BMP, LIPASE #### [facility] [address] Erythrocytes [#/volume] in B lood by Automated countOrdered By: Yoli Norris on 08-15-2023 RBC (Bld) [#/Vol] 4.03 10*6/uL Normal 3.60-5.00 [facility] Comment on above: Performed By: #### C BC, HEPATIC, BMP, LIPASE #### [facility] [address] Glucose [Mass/volume] in Ser um or PlasmaOrdered By: Yoli Norris on 08-15-2023 Glucose [Mass/Vol] 85 mg/dL Normal 70-100 [facility] Comment on above: ADA recommended refe rence rangeRandom Glucose Reference Range is dependent on time and content of last meal. Glucose of more than 200 mg/dL in a nonstressed, ambulatory subject supports the diagnosis of Diabetes Mellitus. Result Comment: [place] om Glucose Reference Range is dependent on time and content of last meal. Glucose of more than 200 mg/dL in a nonstressed, ambulatory subject supports the diagnosis of Diabetes Mellitus. ADA recommended reference range Performed By: #### C BC, HEPATIC, BMP, LIPASE #### [address] HCG ( test) IA.rapi d Ql (U)Ordered By: Yoli Norris on 08-15-2023 HCG ( test) Ql (U) Negative [facility] HCG,Urineon 08-15-2023 Beta HCG ( test) Ql (U) Negative Normal [facility] Comment on above: Order Comment: Name Collection Type:: Clean-Voided Midstream Result Comment: PERF ORMED BY: [place] [address] PATHOLOGIST ADMINISTRATIVE SPECIALIST JOHNIE BOSS M.D. Performed By: #### U A, UHCG #### [address] Hematocrit [Volume Fraction] of Blood by Automated countOrdered By: Yoli Norris on 08-15-2023 Hematocrit (Bld) [Volume fraction] 37.2 % Normal 34.0-46.4 [facility] Comment on above: Performed By: #### C BC, HEPATIC, BMP, LIPASE #### [address] Hemoglobin [Mass/volume] in BloodOrdered By: Yoli Norris on 08-15-2023 Hemoglobin (Bld) [Mass/Vol] 12.2 g/dL Normal 11.8-15.4 [facility] Comment on above: Performed By: #### C BC, HEPATIC, BMP, LIPASE #### [address] Hepatic Panelon 08-15-2023 Albumin [Mass/Vol] 4.6 g/dL Normal 3.5-5.7 [facility] Comment on above: Performed By: #### C BC, HEPATIC, BMP, LIPASE #### [address] Bilirubin,Indirect 0.3 mg/dL Normal [facility] Comment on above: Performed By: #### C BC, HEPATIC, BMP, LIPASE #### [address] Bilirubin.indirect [Mass/Vol] 0.00 mg/dL Low 0.03-0.18 [facility] Comment on above: Result Comment: If t he DBIL is less than 0.1, IBIL is not able to be calculated. Performed By: #### C BC, HEPATIC, BMP, LIPASE #### [address] Ketones Auto test strip (U) [Mass/Vol]Ordered By: Yoli Nroris on 08-15-2023 Ketones (U) [Mass/Vol] Negative Negative [facility] Leukocytes [#/volume] correc caitlin for nucleated erythrocytes in Blood by Automated counOrdered By: Yoli Norris on 08-15-2023 WBC corrected for nucl RBC Auto (Bld) [#/Vol] 11.3 10*3/uL 3.8-11.6 [facility] Leukocytes [#/volume] in Blo od by Automated countOrdered By: Yoli Norris on 08-15-2023 WBC (Bld) [#/Vol] 11.3 10*3/uL Normal 3.8-11.6 [facility] Comment on above: Performed By: #### C BC, HEPATIC, BMP, LIPASE #### [address] Lipase [Enzymatic activity/v olume] in Serum or PlasmaOrdered By: Yoli Norris on 08-15-2023 Lipase [Catalytic activity/Vol] 32.0 U/L Normal 11.0-82.0 [facility] Comment on above: Result Comment: PERF ORMED BY: [place] [address] PATHOLOGIST ADMINISTRATIVE SPECIALIST JOHNIE BOSS M.D. Performed By: #### C BC, HEPATIC, BMP, LIPASE #### [address] Lymphocytes [#/volume] in Bl ood by Automated countOrdered By: Yoli Norris on 08-15-2023 Lymphocytes (Bld) [#/Vol] 2.0 10*3/uL Normal 1.00-4.8 [facility] Comment on above: Performed By: #### C BC, HEPATIC, BMP, LIPASE #### [address] Lymphocytes/100 leukocytes i n Blood by Automated countOrdered By: Yoli Norris on 08-15-2023 Lymphocytes/100 WBC (Bld) 17.8 % Normal . [facility] Comment on above: Performed By: #### C BC, HEPATIC, BMP, LIPASE #### [address] MCH [Entitic mass] by Automa caitlin countOrdered By: Yoli Norris on 08-15-2023 MCH (RBC) [Entitic mass] 30.2 pg Normal 24.7-34.3 [facility] Comment on above: Performed By: #### C BC, HEPATIC, BMP, LIPASE #### [address] MCHC Auto (RBC) [Mass/Vol]Or dered By: Yoli Norris on 08-15-2023 MCHC (RBC) [Mass/Vol] 32.7 g/dL 32.0-35.0 [facility] MCV [Entitic volume] by Auto mated countOrdered By: Yoli Norris on 08-15-2023 MCV (RBC) [Entitic vol] 92.4 fL Normal 80-100 [facility] Comment on above: Performed By: #### C BC, HEPATIC, BMP, LIPASE #### [facility] [address] Monocyte distribution width [Entitic volume] in Blood by AutomatedOrdered By: Yoli Norris on 08-15-2023 Monocyte distribution width Auto (Bld) [Entitic vol] 15.46 % 0.00-20.00 [facility] Neutrophils [#/volume] in Bl ood by Automated countOrdered By: Yoli Norris on 08-15-2023 Neutrophils (Bld) [#/Vol] 8.4 10*3/uL High 1.8-7.7 [facility] Comment on above: Performed By: #### C BC, HEPATIC, BMP, LIPASE #### [facility] [address] [place] [place] [address] Nitrite Test strip Ql (U)Ord ered By: Yoli Norris on 08-15-2023 Nitrite Ql (U) Negative Negative [facility] No Panel InformationOrdered By: Yoli Norris on 08-15-2023 Estimated GFR (CKD-EPI) > 60.0 mL/Min [facility] Creatinine Clearance (Chem 117.62 [facility] Nucleated erythrocytes [Pres ence] in Blood by Automated countOrdered By: Yoli Norris on 08-15-2023 Nucleated RBC Auto Ql (Bld) 0.0 /100{WBC} 0-0.5 [facility] Platelet mean volume [Entiti c volume] in Blood by Automated countOrdered By: Yoli Norris on 08-15-2023 Platelet mean volume (Bld) [Entitic vol] 9.2 fL Normal 6.3-10.7 [facility] Comment on above: Performed By: #### C BC, HEPATIC, BMP, LIPASE #### [facility] [address] [place] [place] [address] Platelets [#/volume] in Bloo d by Automated countOrdered By: Yoli Norris on 08-15-2023 Platelets (Bld) [#/Vol] 321 10*3/uL Normal 150-450 [facility] Comment on above: Performed By: #### C BC, HEPATIC, BMP, LIPASE #### [facility] [address] [place] [address] Potassium [Moles/volume] in Serum or PlasmaOrdered By: Yoli Norris on 08-15-2023 Potassium [Moles/Vol] 3.5 mmol/L Normal 3.5-5.1 [facility] Comment on above: Performed By: #### C BC, HEPATIC, BMP, LIPASE #### [address] Protein Auto test strip (U) [Mass/Vol]Ordered By: Yoli Norris on 08-15-2023 Protein (U) [Mass/Vol] Negative Negative [facility] Protein [Mass/volume] in Ser um or PlasmaOrdered By: Yoli Norris on 08-15-2023 Protein [Mass/Vol] 7.8 g/dL Normal 6.4-8.9 [facility] Comment on above: Performed By: #### C BC, HEPATIC, BMP, LIPASE #### [address] Serum globulin measurement b y calculation (mass/volume)Ordered By: Yoli Norris on 08-15-2023 Globulin (S) [Mass/Vol] 3.2 g/dL [facility] Comment on above: Performed By: #### C BC, HEPATIC, BMP, LIPASE #### [facility] [address] [place] [address] Serum or plasma albumin/glob ulin mass ratioOrdered By: Yoli Norris on 08-15-2023 Albumin/Globulin [Mass ratio] 1.4 {ratio} [facility] Comment on above: Performed By: #### C BC, HEPATIC, BMP, LIPASE #### [address] Serum or plasma anion gap de terminationOrdered By: Yoli Norris on 12-02-2023 Anion gap [Moles/Vol] 12.7 mmol/L Normal 6.0-15.0 [facility] Comment on above: Performed By: #### C BC, HEPATIC, BMP, LIPASE #### [address] Serum or plasma non-glucuron idated bilirubin measurement (mass/volume)Ordered By: Yoli Norris on 08-15-2023 Bilirubin.indirect [Mass/Vol] 0.3 mg/dL [facility] Sodium [Moles/volume] in Ser um or PlasmaOrdered By: Yoli Norris on 08-15-2023 Sodium [Moles/Vol] 140 mmol/L Normal 136-145 [facility] Comment on above: Performed By: #### C BC, HEPATIC, BMP, LIPASE #### [address] Specific gravity Auto test s trip (U) [Rel density]Ordered By: Yoli Norris on 08-15-2023 Specific gravity (U) [Rel density] 1.007 1.001-1.030 [facility] Urea nitrogen [Mass/volume] in Serum or PlasmaOrdered By: Yoli Norris on 08-15-2023 Urea nitrogen [Mass/Vol] 11 mg/dL Normal 7-25 [facility] Comment on above: Performed By: #### C BC, HEPATIC, BMP, LIPASE #### [address] Urinalysison 08-15-2023 Appearance (U) Clear Normal Clear [facility] Comment on above: Order Comment: Name Collection Type:: Clean-Voided Midstream Performed By: #### U A, UHCG #### [address] Bilirubin,Urine Negative Normal Negative [facility] Comment on above: Order Comment: Name Collection Type:: Clean-Voided Midstream Performed By: #### U A, UHCG #### [address] Glucose Ql (U) Normal Normal Normal [facility] Comment on above: Order Comment: Name Collection Type:: Clean-Voided Midstream Performed By: #### U A, UHCG #### [place] [address] [place] Ketones Ql (U) Negative Normal Negative [facility] Comment on above: Order Comment: Name Collection Type:: Clean-Voided Midstream Performed By: #### U A, UHCG #### [address] Leukocyte esterase Test strip Ql (U) Negative Normal Negative [facility] Comment on above: Order Comment: Name Collection Type:: Clean-Voided Midstream Performed By: #### U A, UHCG #### [place] [address] [place] Nitrite,Urine Negative Normal Negative [facility] Comment on above: Order Comment: Name Collection Type:: Clean-Voided Midstream Performed By: #### U A, UHCG #### [place] [address] [place] Occult Blood,Urine Negative Normal Negative [facility] Comment on above: Order Comment: Name Collection Type:: Clean-Voided Midstream Performed By: #### U A, UHCG #### [place] [address] [place] Protein,Urine Negative Normal Negative [facility] Comment on above: Order Comment: Name Collection Type:: Clean-Voided Midstream Performed By: #### U A, UHCG #### [place] [address] [place] Specificy [place],Urine 1.007 Normal 1.001-1.030 [facility] Comment on above: Order Comment: Name Collection Type:: Clean-Voided Midstream Performed By: #### U A, UHCG #### [place] [address] [place] Urobilinogen,Urine Normal Normal Normal [facility] Comment on above: Order Comment: Name Collection Type:: Clean-Voided Midstream Performed By: #### U A, UHCG #### [address] [place] [address] [facility] Urine clarity by refractomet ry automatedOrdered By: Yoli Norris on 08-15-2023 Clarity Refractometry automated (U) Clear Clear [facility] Urine glucose measurement by automated test strip (mass/volume)Ordered By: Yoli Norris on 08-15-2023 Glucose Auto test strip (U) [Mass/Vol] Normal mg/dL Normal [facility] Urine hemoglobin detection b y automated test stripOrdered By: Yoli Norris on 08-15-2023 Hemoglobin Auto test strip Ql (U) Negative Negative [facility] Urine leukocyte esterase det ection by automated test stripOrdered By: Yoli Norris on 08-15-2023 Leukocyte esterase Auto test strip Ql (U) Negative Negative [facility] Urine pH measurement by auto mated test stripOrdered By: Yoli Norris on 08-15-2023 pH (U) 8.0 [pH] Normal 5.0-9.0 [facility] Comment on above: Order Comment: Name Collection Type:: Clean-Voided Midstream Performed By: #### U A, [facility] #### [place] [id number] [facility] Urobilinogen Auto test strip (U) [Mass/Vol]Ordered By: Yoli Norris on 08-15-2023 Urobilinogen (U) [Mass/Vol] Normal mg/dL Normal [facility] Vitamin B1on 08-15-2023 Vitamin B1 145 nmol/L Normal 70-180 [facility] Comment on above: Result Comment: (NOT [...] developed and its performance characteristics determined by [facility]. It has not been cleared or approved by the [place] Food and Drug Administration. This test was performed in a CLIA certified laboratory and is intended for clinical purposes. Performed By: [facility] [address] [place] [address] Apparatus Cleaner: Osmar Salcido MD, PhD CLIA Number: [id number] Performed By: #### P THNCA, FEBC, FERI, GLYHGB, VD25 #### [place] [id number] [place] [address] Production Ski Repairer: Harpal Adair MD #### AGNES OLIVO, AZN #### [facility] [address] [place] [address] Production Ski Repairer: Patricio Zuñiga MD #### CP, MG, CDP #### [facility] [address] [place] [address] Production Ski Repairer: Hilton Armenta MD Zinc, Serumon 08-14-2023 Zinc, Serum 95.3 ug/dL Normal 60.0-120.0 [facility] Comment on above: Result Comment: (NOT [...] developed and its performance characteristics determined by [facility]. It has not been cleared or approved by the [place] Food and Drug Administration. This test was performed in a CLIA certified laboratory and is intended for clinical purposes. Performed By: [facility] [address] [place] [address] Apparatus Cleaner: Osmar Salcido MD, PhD CLIA Number: [id number] Performed By: #### P THNCA, FEBC, FERI, GLYHGB, VD25 #### [place] [address] [place] [address] Production Ski Repairer: Harpal Adair MD #### AGNES OLIVO, AZN #### [address] [address] Production Ski Repairer: Patricio Zuñiga MD #### CP, MG, CDP #### [address] [place], [place] [id number] Production Ski Repairer: Hilton Armenta MD B12/Folate Panelon 3 Folic Acid >20.0 Normal >4.8 [facility] Comment on above: Performed By: #### P GINCA, FEBC, FERI, GLYHGB, VD25 #### [place] [address] [place] [address] Production Ski Repairer: Harpal Adair MD #### AGNES OLIVO, AZN #### [facility] [address] [place] [address] Production Ski Repairer: Patricio Zuñiga MD #### ANGEL, MG, CDP #### [address] [place] [phone] Production Ski Repairer: Hilton Armenta MD Cobalamin (Vitamin B12) [Mass/Vol] 632 pg/mL Normal 232-1245 [facility] Comment on above: Performed By: #### ALFONSO COSTA, FERI, GLYHGB, VD25 #### [address] [address] Production Ski Repairer: Harpal Adair MD #### AGNES OLIVO, AZN #### [facility] [address] [place] [address] Production Ski Repairer: Patricio Zuñiga MD #### CP, MG, CDP #### [address] [place], [place] [phone] Production Ski Repairer: Hilton Armenta MD CBC with Diffon 08-12-2023 Abs. Basophil 0.06 k/uL Normal 0.00-0.20 [facility] Comment on above: Performed By: #### P THNCA, FEBC, FERI, GLYHGB, VD25 #### [address] [address] Production Ski Repairer: Harpal Adair MD #### AGNES OLIVO, AZN #### [facility] [address] [place], [place] [id number] Production Ski Repairer: Patricio Zuñiga MD #### ANGEL, MG, CDP #### [address] [place] [phone] Production Ski Repairer: Hilton Armenta MD Abs.Imm.Granulocyte 0.03 k/uL Normal 0.00-0.30 [facility] Comment on above: Performed By: #### ALFONSO COSTA, ARNOLDO, GLYHGB, VD25 #### [address] [address] Production Ski Repairer: Harpal Adair MD #### AGNES OLIVO, AZN #### [address] [phone] Production Ski Repairer: Patricio Zuñiga MD #### ANGEL, MG, CDP #### [address] [place] [phone] Production Ski Repairer: Hilton Armenta MD Abs.Neutrophil (Seg) 6.33 k/uL Normal 1.50-8.10 [facility] Comment on above: Performed By: #### ALFONSO COSTA, FERI, GLYHGB, VD25 #### [address] [address] Production Ski Repairer: Harpal Adair MD #### AGNES OLIVO, AZN #### [facility] [address] [place], [place] [id number] Production Ski Repairer: Patricio Zuñiga MD #### ANGEL, MG, CDP #### [address] [place] [address] Production Ski Repairer: Hilton Armenta MD Basophils/100 WBC (Bld) 1 % Normal 0-2 [facility] Comment on above: Performed By: #### P THNCA, FEBC, FERI, GLYHGB, VD25 #### [facility] [place] [address] Production Ski Repairer: Harpal Adair MD #### ARIAN OLIVOTB1, AZN #### [facility] [address] [place] [address] Production Ski Repairer: Patricio Zuñiga MD #### CP, MG, CDP #### [facility] [address] [place] [address] Production Ski Repairer: Hilton Armenta MD Eosinophils (Bld) [#/Vol] 0.43 10*3/uL Normal 0.00-0.44 [facility] Comment on above: Performed By: #### P THNCA, FEBC, FERI, GLYHGB, VD25 #### [facility] [address] [place] [address] Production Ski Repairer: Harpal Adair MD #### AGNES OLIVO, AZN #### [facility] [address] [place], [place] [phone] Production Ski Repairer: Patricio Zuñiga MD #### CP, MG, CDP #### [address] [place] [phone] Production Ski Repairer: Hilton Armenta MD Eosinophils/100 WBC (Bld) 5 % High 1-4 [facility] Comment on above: Performed By: #### P THNCA, FEBC, FERI, GLYHGB, VD25 #### [facility] [address] [place] [address] Production Ski Repairer: Harpal Adair MD #### ARIAN OLIVOTB1, AZN #### [facility] [address] [place] [address] Production Ski Repairer: Patricio Zuñiga MD #### CP, MG, CDP #### [address] [place], [place] [phone] Production Ski Repairer: Hilton Armenta MD Erythrocyte distribution width (RBC) [Ratio] 14.9 % High 11.8-14.4 [facility] Comment on above: Performed By: #### P THNCA, FEBC, FERI, GLYHGB, VD25 #### [address] [id number] Production Ski Repairer: Harpal Adair MD #### AGNES OLIVO, AZN #### [facility] [address] [place] [address] Production Ski Repairer: Patricio Zuñiga MD #### ANGEL, MG, CDP #### [address] [place] [phone] Production Ski Repairer: Hilton Armenta MD Hematocrit (Bld) [Volume fraction] 38.0 % Normal 36.3-47.1 [facility] Comment on above: Performed By: #### P DENNISA, FEBC, FERI, GLYHGB, VD25 #### [address] [phone] Production Ski Repairer: Harpal Adair MD #### AGNES OLIVO, AZN #### [facility] [address] [place] [address] Production Ski Repairer: Patricio Zuñiga MD #### CP, MG, CDP #### [address] [place] [address] Production Ski Repairer: Hilton Armenta MD Hemoglobin (Bld) [Mass/Vol] 12.2 g/dL Normal 11.9-15.1 [facility] Comment on above: Performed By: #### P THNCA, FEBC, FERI, GLYHGB, VD25 #### [address] [address] Production Ski Repairer: Harpal Adair MD #### ARIAN OLIVOTB1, AZN #### [facility] [address] [place], [place] [phone] Production Ski Repairer: Patricio Zuñiga MD #### CP, MG, CDP #### [address] [place], [place] [phone] Production Ski Repairer: Hilton Armenta MD Immature granulocytes/100 WBC (Bld) 0 % Normal 0 [facility] Comment on above: Performed By: #### P THHAYDEEA, FEBC, FERI, GLYHGB, VD25 #### [address] [address] Production Ski Repairer: Harpal Adair MD #### TYREE OLIVO1, AZN #### [facility] [address] [place] [address] Production Ski Repairer: Patricio Zuñiga MD #### ANGEL, MG, CDP #### [address] [place] [phone] Production Ski Repairer: Hilton Armenta MD Lymphocytes (Bld) [#/Vol] 1.90 10*3/uL Normal 1.10-3.70 [facility] Comment on above: Performed By: #### P THNCA, FEBC, FERI, GLYHGB, VD25 #### [facility] [address] [place] [address] Production Ski Repairer: Harpal Adair MD #### ARIAN OLIVOTB1, AZN #### [facility] [address] [place] [address] Production Ski Repairer: Patricio Zuñiga MD #### CP, MG, CDP #### [address] [place] [address] Production Ski Repairer: Hilton Armenta MD Lymphocytes/100 WBC (Bld) 20 % Low 24-43 [facility] Comment on above: Performed By: #### P THNCA, FEBC, FERI, GLYHGB, VD25 #### [place] [address] [place], [place] [phone] Production Ski Repairer: Harpal Adair MD #### ARIAN OLIVOTB1, AZN #### [facility] [address] [place], [place] [id number] Production Ski Repairer: Patricio Zuñiga MD #### CP, MG, CDP #### [facility] [address] [place] [address] Production Ski Repairer: Hilton Armenta MD MCH (RBC) [Entitic mass] 29.9 pg Normal 25.2-33.5 [facility] Comment on above: Performed By: #### P DENNISA, FEBC, FERI, GLYHGB, VD25 #### [address] [phone] Production Ski Repairer: Harpal Adair MD #### AGNES OLIVO, AZN #### [facility] [address] [address] Production Ski Repairer: Patricio Zuñiga MD #### ANGEL, MG, CDP #### [address] [place] [address] Production Ski Repairer: Hilton Armenta MD MCHC (RBC) [Mass/Vol] 32.1 g/dL Normal 28.4-34.8 [facility] Comment on above: Performed By: #### P THNCA, FEBC, FERI, GLYHGB, VD25 #### [address] [phone] Production Ski Repairer: Harpal Adair MD #### AGNES OLIVO, AZN #### [facility] [address] [place] [address] Production Ski Repairer: Patricio Zuñiga MD #### CP, MG, CDP #### [facility] [address] [place] [phone] Production Ski Repairer: Hilton Armenta MD MCV (RBC) [Entitic vol] 93.1 fL Normal 82.6-102.9 [facility] Comment on above: Performed By: #### P THNCA, FEBC, FERI, GLYHGB, VD25 #### [address] [address] Production Ski Repairer: Harpal Adair MD #### AGNES OLIVO, AZN #### [facility] [address] [place] [address] Production Ski Repairer: Patricio Zuñiga MD #### ANGEL, MG, CDP #### [address] [place] [phone] Production Ski Repairer: Hilton Armenta MD Monocytes (Bld) [#/Vol] 0.70 10*3/uL Normal 0.10-1.20 [facility] Comment on above: Performed By: #### P THNCA, FEBC, FERI, GLYHGB, VD25 #### [address] [address] Production Ski Repairer: Harpal Adair MD #### AGNES OLIVO, AZN #### [facility] [address] [place] [address] Production Ski Repairer: Patricio Zuñiga MD #### CP, MG, CDP #### [address] [place] [phone] Production Ski Repairer: Hilton Armenta MD Monocytes/100 WBC (Bld) 7 % Normal 3-12 [facility] Comment on above: Performed By: #### P THNCA, FEBC, FERI, GLYHGB, VD25 #### [address] [address] Production Ski Repairer: Harpal Adair MD #### ARIAN OLIVOTB1, AZN #### [facility] [address] [place], [place] [id number] Production Ski Repairer: Patricio Zuñiga MD #### CP, MG, CDP #### [facility] [address] [place], [place] [phone] Production Ski Repairer: Hilton Armenta MD Neutrophil (Seg) 67 % High 36-65 [facility] Comment on above: Performed By: #### P THNCA, FEBC, FERI, GLYHGB, VD25 #### [address] [address] Production Ski Repairer: Harpal Adair MD #### ARIAN OLIVOTB1, AZN #### [facility] [address] [place], [place] [phone] Production Ski Repairer: Patricio Zuñiga MD #### ANGEL, MG, CDP #### [facility] [address] [place] [address] Production Ski Repairer: Hilton Armenta MD NRBC Automated 0.0 per 100 WBC Normal 0.0 [facility] [facility] Comment on above: Performed By: #### P THNCA, FEBC, FERI, GLYHGB, VD25 #### [address] [address] Production Ski Repairer: Harpal Adair MD #### ARIAN OLIVOTB1, AZN #### [facility] [address], [place] [phone] Production Ski Repairer: Patricio Zuñiga MD #### CP, MG, CDP #### [facility] [address] [place] [address] Production Ski Repairer: Hilton Armenta MD Platelet mean volume (Bld) [Entitic vol] 10.6 fL Normal 8.1-13.5 [facility] Comment on above: Performed By: #### P THNCA, FEBC, FERI, GLYHGB, VD25 #### [address] [place] [address] Production Ski Repairer: Harpal Adair MD #### ARIANTAS, AVITB1, AZN #### [facility] [address] [place] [address] Production Ski Repairer: Patricio Zuñiga MD #### CP, MG, CDP #### [address] [place], [place] [phone] Production Ski Repairer: Hilton Armenta MD Platelets (Bld) [#/Vol] 355 10*3/uL Normal 138-453 [facility] Comment on above: Performed By: #### P THNCA, FEBC, FERI, GLYHGB, VD25 #### [address] [address] Production Ski Repairer: Harpal Adair MD #### ARIAN OLIVOTB1, AZN #### [facility] [address], [place] [id number] Production Ski Repairer: Patricio Zuñiga MD #### ANGEL, MG, CDP #### [address] [place], [place] [phone] Production Ski Repairer: Hilton Armenta MD RBC (Bld) [#/Vol] 4.08 10*6/uL Normal 3.95-5.11 [facility] Comment on above: Performed By: #### P THNCA, FEBC, FERI, GLYHGB, VD25 #### [address] [address] Production Ski Repairer: Harpal Adair MD #### AVITAS, AVITB1, AZN #### [facility] [address] [place] [address] Production Ski Repairer: Patricio Zuñiga MD #### CP, MG, CDP #### [facility] [address] [place] [address] [place] [place], [place] [phone] Production Ski Repairer: Hilton Armenta MD WBC (Bld) [#/Vol] 9.5 10*3/uL Normal 3.5-11.3 [facility] Comment on above: Performed By: #### P THNCA, FEBC, FERI, GLYHGB, VD25 #### [address] [address] Production Ski Repairer: Harpal Adair MD #### ARIAN OLIVOTBCeli, AZN #### [facility] [address] [place] [address] Production Ski Repairer: Patricio Zuñiga MD #### ANGEL, MG, CDP #### [address] [place] [address] Production Ski Repairer: Hilton Armenta MD Comp Metabolic Profon 2022 Albumin [Mass/Vol] 4.5 g/dL Normal 3.5-5.2 [facility] Comment on above: Performed By: #### P THHAYDEEA, FEBC, FERI, GLYHGB, VD25 #### [address] [address] Production Ski Repairer: Harpal Adair MD #### AGNES OLIVO, AZN #### [facility] [address] [place] [address] Production Ski Repairer: Patricio Zuñiga MD #### CP, MG, CDP #### [address] [place], [place] [phone] Production Ski Repairer: Hilton Armenta MD Albumin/Glob Ratio 1.6 Normal 1.0-2.5 [facility] Comment on above: Performed By: #### P THNCA, FEBC, FERI, GLYHGB, VD25 #### [facility] [address] [place] [address] Production Ski Repairer: Harpal Adair MD #### ARIAN OLIVOTB1, AZN #### [facility] [address], [place] [id number] Production Ski Repairer: Patricio Zuñiga MD #### CP, MG, CDP #### [facility] [address] [place], [place] [phone] Production Ski Repairer: Hilton Armenta MD Alkaline Phos 85 U/L Normal 35-104 [facility] Comment on above: Performed By: #### P BAILEY, FEBC, FERI, GLYHGB, VD25 #### [address] [place] [address] Production Ski Repairer: Harpal Adair MD #### ARIAN OLIVOTB1, AZN #### [facility] [address], [place] [id number] Production Ski Repairer: Patricio Zuñiga MD #### ANGEL, MG, CDP #### [address] [place] [address] Production Ski Repairer: Hilton Armenta MD ALT [Catalytic activity/Vol] 21 U/L Normal 5-33 [facility] Comment on above: Performed By: #### P THNCA, FEBC, FERI, GLYHGB, VD25 #### [address] [address] Production Ski Repairer: Harpal Adair MD #### ARIAN OLIVOTB1, AZN #### [facility] [address] [place] [address] Production Ski Repairer: Patricio Zuñiga MD #### CP, MG, CDP #### [facility] [address] [place] [address] Production Ski Repairer: Hilton Armenta MD Anion gap [Moles/Vol] 11 mmol/L Normal 9-17 [facility] Comment on above: Performed By: #### P THNCA, FEBC, FERI, GLYHGB, VD25 #### [facility] [address] [place] [address] Production Ski Repairer: Harpal Adair MD #### AGNES OLIVO, AZN #### [facility] [address], [place] [id number] Production Ski Repairer: Patricio Zuñiga MD #### MG ANGEL, CDP #### [address] [place], [place] [phone] Production Ski Repairer: Hilton Armenta MD AST [Catalytic activity/Vol] 22 U/L Normal <32 [facility] Comment on above: Performed By: #### P THNCA, FEBC, FERI, GLYHGB, VD25 #### [address] [address] Production Ski Repairer: Harpal Adair MD #### AGNES OLIVO, AZN #### [facility] [address], [place] [phone] Production Ski Repairer: Patricio Zuñiga MD #### MG ANGEL, CDP #### [address] [place], [place] [phone] Production Ski Repairer: Hilton Armenta MD Bilirubin [Mass/Vol] 0.2 mg/dL Low 0.3-1.2 [facility] Comment on above: Performed By: #### P THNCA, FEBC, FERI, GLYHGB, VD25 #### [facility] [address] [place] [address] Production Ski Repairer: Harpal Adair MD #### AGNES OLIVO, AZN #### [facility] [address] [place] [address] Production Ski Repairer: Patricio Zuñiga MD #### ANGEL MG, CDP #### [address] [place], [place] [phone] Production Ski Repairer: Hilton Armenta MD BUN/CRE Ratio 20 Normal 9-20 [facility] Comment on above: Performed By: #### P THNCA, FEBC, FERI, GLYHGB, VD25 #### [address] [address] Production Ski Repairer: Harpal Adair MD #### AGNES OLIVO, AZN #### [facility] [address], [place] [phone] Production Ski Repairer: Patricio Zuñiga MD #### MG ANGEL, CDP #### [address] [place], [place] [phone] Production Ski Repairer: Hilton Armenta MD Calcium [Mass/Vol] 9.9 mg/dL Normal 8.6-10.4 [facility] Comment on above: Performed By: #### Kina AVALOS, FECHRIS, FERI, GLYHGB, VD25 #### [address] [address] Production Ski Repairer: Harpal Adair MD #### AGNES OLIVO, AZN #### [facility] [address], [place] [phone] Production Ski Repairer: Patricio Zuñiga MD #### MG ANGEL, CDP #### [facility] [address] [place], [place] [phone] Production Ski Repairer: Hilton Armenta MD Chloride [Moles/Vol] 107 mmol/L Normal 98-107 [facility] Comment on above: Performed By: #### P THNCA, FEBC, FERI, GLYHGB, VD25 #### [address] [address] Production Ski Repairer: Harpal Adair MD #### AGNES OLIVO, AZN #### [facility] [address], [place] [id number] Production Ski Repairer: Patricio Zuñiga MD #### ANGEL MG, CDP #### [address] [place] [address] Production Ski Repairer: Hilton Armenta MD CO2 [Moles/Vol] 23 mmol/L Normal 20-31 [facility] Comment on above: Performed By: #### P ALFONSO AVALOS, FERI, GLYHGB, VD25 #### [facility] [address] [place] [phone] Production Ski Repairer: Harpal Adair MD #### AGNES OLIVO, AZN #### [facility] [address], [place] [phone] Production Ski Repairer: Patricio Zuñiga MD #### MG ANGEL, CDP #### [address] [place] [address] Production Ski Repairer: Hilton Armenta MD Creatinine [Mass/Vol] 0.6 mg/dL Normal 0.5-0.9 [facility] Comment on above: Performed By: #### ALFONSO COSTA, ARNOLDO, GLYHGB, VD25 #### [address] [address] Production Ski Repairer: Harpal Adair MD #### AGNES OLIVO, AZN #### [facility] [address], [place] [phone] Production Ski Repairer: Patricio Zuñiga MD #### ANGEL MG, CDP #### [address] [place] [address] Production Ski Repairer: Hilton Armenta MD GFR/1.73 sq M.predicted among non-blacks MDRD (S/P/Bld) [Vol rate/Area] mL/min/{1.73_m2} Normal >60 [facility] Comment on above: Result Comment: These [...] P THNCA, FEBC, FERI, GLYHGB, VD25 #### [address] [address] Production Ski Repairer: Harpal Adair MD #### AGNES OLIVO, AZN #### [facility] [address] [phone] Production Ski Repairer: Patricio Zuñiga MD #### ANGEL, MG, CDP #### [address] [place] [address] Production Ski Repairer: Hilton Armenta MD Glucose [Mass/Vol] 89 mg/dL Normal 70-99 [facility] Comment on above: Performed By: #### P DENNISA, JOSÉ LUISBC, FERI, GLYHGB, VD25 #### [address] [address] Production Ski Repairer: Harpal Adair MD #### AGNES OLIVO, AZN #### [facility] [address] [place] [address] Production Ski Repairer: Patricio Zuñiga MD #### CP, MG, CDP #### [address] [place] [address] Production Ski Repairer: Hilton Armenta MD Potassium [Moles/Vol] 4.3 mmol/L Normal 3.7-5.3 [facility] Comment on above: Performed By: #### P THNCA, FEBC, FERI, GLYHGB, VD25 #### [address] [address] Production Ski Repairer: Harpal Adair MD #### PALLAVI, ARIANTB1, AZN #### [facility] [address], [place] [phone] Production Ski Repairer: Patricio Zuñiga MD #### CP, MG, CDP #### [facility] [address] [place] [address] [place] [address] Production Ski Repairer: Hilton Armenta MD Protein [Mass/Vol] 7.4 g/dL Normal 6.4-8.3 [facility] Comment on above: Performed By: #### P DENNISA, FEBC, FERI, GLYHGB, VD25 #### [address] [phone] Production Ski Repairer: Harpal Adair MD #### PALLAVI, ARIANTB1, AZN #### [facility] [address] [place], [place] [phone] Production Ski Repairer: Patricio Zuñiga MD #### ANGEL, MG, CDP #### [address] [place] [address] Production Ski Repairer: Hilton Armenta MD Sodium [Moles/Vol] 141 mmol/L Normal 135-144 [facility] Comment on above: Performed By: #### P THNCA, FEBC, FERI, GLYHGB, VD25 #### [address] [address] Production Ski Repairer: Harpal Adair MD #### FARHADSARIANTB1, AZN #### [facility] [address] [place], [place] [phone] Production Ski Repairer: Patricio Zuñiga MD #### CP, MG, CDP #### [address] [place] [address] Production Ski Repairer: Hilton Armenta MD Urea nitrogen [Mass/Vol] 12 mg/dL Normal 6-20 [facility] Comment on above: Performed By: #### P THNCA, FEBC, FERI, GLYHGB, VD25 #### [facility] [address] [place] [address] Production Ski Repairer: Harpal Adair MD #### FARHADS, ARIANTB1, AZN #### [facility] [address] [place], [place] [phone] Production Ski Repairer: Patricio Zuñiga MD #### CP, MG, CDP #### [facility] [address] [place], [place] [phone] Production Ski Repairer: Hilton Armenta MD Ferritinon 08-12-2023 Ferritin [Mass/Vol] 12 ng/mL Low 13-150 [facility] Comment on above: Performed By: #### P THNCA, FEBC, FERI, GLYHGB, VD25 #### [address] [address] Production Ski Repairer: Harpal Adair MD #### ARIAN OLIVOTB1, AZN #### [facility] [address] [place] [address] Production Ski Repairer: Patricio Zuñiga MD #### CP, MG, CDP #### [address] [place] [address] Production Ski Repairer: Hilton Armenta MD Hemoglobin A1Con 08-12-2023 Glucose [Mass/Vol] 114 mg/dL Normal [facility] Comment on above: Result Comment: The ADA and AACC recommend providing the estimated average glucose result to permit better patient understanding of their HBA1c result. Performed By: #### P THNCA, FEBC, FERI, GLYHGB, VD25 #### [facility] [address] [place] [address] Production Ski Repairer: Harpal Adair MD #### ARIAN OLIVOTB1, AZN #### [facility] [address], [place] [phone] Production Ski Repairer: Patricio Zuñiga MD #### CP, MG, CDP #### [facility] [address] [place] [address] [place] [address] Production Ski Repairer: Hilton Armenta MD HbA1c (Bld) [Mass fraction] 5.6 % Normal 4.0-6.0 [facility] Comment on above: Performed By: #### P THNCA, FEBC, FERI, GLYHGB, VD25 #### [facility] [address] [place] [address] Production Ski Repairer: Harpal Adair MD #### AGNES OLIVO, AZN #### [facility] [address] [place] [address] Production Ski Repairer: Patricio Zuñiga MD #### ANGEL, MG, CDP #### [facility] [address] [place] [address] [place] [address] Production Ski Repairer: Hilton Armenta MD Iron Binding Cap.on 08-12-20 23 % Fe Saturation 16 % Low 20-55 [facility] Comment on above: Performed By: #### P THNCA, FEBC, FERI, GLYHGB, VD25 #### [facility] [address] [place] [address] Production Ski Repairer: Harpal Adair MD #### AGNES OLIVO, AZN #### [facility] [address] [place] [address] Production Ski Repairer: Patricio Zuñiga MD #### ANGEL, MG, CDP #### [facility] [address] [place] [address] [place] [address] Production Ski Repairer: Hilton Armenta MD Iron [Mass/Vol] 57 ug/dL Normal 37-145 [facility] Comment on above: Performed By: #### P THNCA, FEBC, FERI, GLYHGB, VD25 #### [facility] [address] [place] [address] Production Ski Repairer: Harpal Adair MD #### ARIAN OLIVOTB1, AZN #### [facility] [address] [place] [address] Production Ski Repairer: Patricio Zuñiga MD #### CP, MG, CDP #### [facility] [address] [place], [place] [phone] Production Ski Repairer: Hilton Armenta MD Total Fe Binding Cap 354 ug/dL Normal 250-450 [facility] Comment on above: Performed By: #### P THNCA, FEBC, FERI, GLYHGB, VD25 #### [address] [place] [address] Production Ski Repairer: Harpal Adair MD #### ARIAN OLIVOTB1, AZN #### [facility] [address] [place], [place] [phone] Production Ski Repairer: Patricio Zuñiga MD #### CP, MG, CDP #### [facility] [address] [place] [address] Production Ski Repairer: Hilton Armenta MD Unbound Fe Bind Cap 297 ug/dL Normal 112-347 [facility] Comment on above: Performed By: #### P THNCA, FEBC, FERI, GLYHGB, VD25 #### [address] [address] Production Ski Repairer: Harpal Adair MD #### ARIAN OLIVOTB1, AZN #### [facility] [address] [place], [place] [id number] Production Ski Repairer: Patricio Zuñiga MD #### CP, MG, CDP #### [facility] [address] [place], [place] [phone] Production Ski Repairer: Hilton Armenta MD Lipid Profileon 08-12-2023 Cholesterol [Mass/Vol] 153 mg/dL Normal <200 [facility] Comment on above: Result Comment: Cholesterol Guidelines: <200 Desirable 200-240 Borderline >240 Undesirable Performed By: #### L IPR #### [facility] [address] [place] [address] Production Ski Repairer: Harpal Adair MD Cholesterol in HDL [Mass/Vol] 68 mg/dL Normal >40 [facility] Comment on above: Result Comment: HDL Guidelines: <40 Undesirable 40-59 Borderline >59 Desirable Performed By: #### L IPR #### [facility] [address] [place] [address] Production Ski Repairer: Harpal Adair MD Cholesterol in LDL [Mass/Vol] 77 mg/dL Normal 0-130 [facility] Comment on above: Result Comment: LDL Guidelines: <100 Desirable 100-129 Near to/above Desirable 130-159 Borderline >159 Undesirable Direct (measured) LDL and calculated LDL are not interchangeable tests. Performed By: #### L IPR #### [facility] [address] [place] [address] Production Ski Repairer: Harpal Adair MD Cholesterol.total/Cho lesterol in HDL [Mass ratio] 2.3 {ratio} Normal <5 [facility] Comment on above: Performed By: #### L IPR #### [facility] [address] [place] [address] Production Ski Repairer: Harpal Adair MD Triglyceride [Mass/Vol] 39 mg/dL Normal <150 [facility] Comment on above: Result Comment: Triglyceride Guidelines: <150 Desirable 150-199 Borderline 200-499 High >499 Very high Based on AHA Guidelines for fasting triglyceride, June 2012. Performed By: #### L IPR #### [facility] [address] [place] [address] Production Ski Repairer: Harpal Adair MD Magnesiumon 08-12-2023 Magnesium [Mass/Vol] 2.1 mg/dL Normal 1.6-2.6 [facility] Comment on above: Performed By: #### P THNCA, FEBC, FERI, GLYHGB, VD25 #### [address] [address] Production Ski Repairer: Harpal Adair MD #### AGNES OLIVO, AZN #### [facility] [address], [place] [phone] Production Ski Repairer: Patricio Zuñiga MD #### CP, MG, CDP #### [address] [place] [address] Production Ski Repairer: Hilton Armenta MD PTH, Intacton 08-12-2023 PTH, Intact 17.1 pg/mL Normal 14.0-72.0 [facility] Comment on above: Result Comment: SAMP LES FROM PATIENTS ROUTINELY RECEIVING HIGH DOSE BIOTIN THERAPY MAY SHOW FALSELY DEPRESSED RESULTS. ADDITIONAL INFORMATION MAY BE REQUIRED FOR DIAGNOSIS. Performed By: #### P ALFONSO AVALOS, ARNOLDO, ARNOLDO, VD25 #### [address] [address] Production Ski Repairer: Harpal Adair MD #### AGNES OLIVO, AZN #### [facility] [address] [place] [address] Production Ski Repairer: Patricio Zuñiga MD #### CP, MG, CDP #### [address] [place] [address] Production Ski Repairer: Hilton Armenta MD Thyroid Stim. Horm.on 2022 Thyroid Stim. Horm. 1.50 uIU/mL Normal 0.30-5.00 [facility] Comment on above: Performed By: #### P DENNISA, ALFONSO, ASHLYI, GLYHGB, VD25 #### [address] [address] Production Ski Repairer: Harpal Adair MD #### AGNES OLIVO, AZN #### [facility] [address] [place] [address] Production Ski Repairer: Patricio Zuñiga MD #### CP, MG, CDP #### [facility] [address] [place] [address] Production Ski Repairer: Hilton Armenta MD Thyroxine, Freeon 08-12-2023 Thyroxine, Free 1.2 ng/dL Normal 0.9-1.7 [facility] Comment on above: Performed By: #### P THNCA, FEBC, FERI, GLYHGB, VD25 #### [facility] [address] [place], [place] [phone] Production Ski Repairer: Harpal Adair MD #### ARIAN OLIVOTB1, AZN #### [facility] [address] [place] [address] Production Ski Repairer: Patricio Zuñiga MD #### ANGEL, MG, CDP #### [facility] [address] [place] [address] Production Ski Repairer: Hilton Armenta MD US GALLBLADDER RUQon 023 US GALLBLADDER RUQ EXAMINATION: RIGHT UPPER QUADRANT ULTRASOUND 08/12/2023 7:25 am COMPARISON: None. HISTORY: ORDERING SYSTEM PROVIDED HISTORY: LUQ pain TECHNOLOGIST PROVIDED HISTORY: This procedure can be scheduled via [employer]. Access your [employer] account by visiting [facility]. FINDINGS: LIVER: The liver demonstrates normal echogenicity [...] Bret Monson DO 08/12/23 Final result Normal [facility] Vitamin D 25 OHon 08-12-2023 Vitamin D 25 OH 45.1 ng/mL Normal >29.9 [facility] Comment on above: Result Comment: Reference Range: Vitamin D status Range Deficiency <20 ng/mL Mild Deficiency 20-30 ng/mL Sufficiency 30-100 ng/mL Toxicity >100 ng/mL Performed By: #### P THNCA, FEBC, FERI, GLYHGB, VD25 #### [address] [address] Production Ski Repairer: Harpal Adair MD #### AGNES OLIVO, SENAN #### [facility] [address] [address] Production Ski Repairer: Patricio Zuñiga MD #### ANGEL, MG, CDP #### [facility] [address] [place], [place] [phone] Production Ski Repairer: Hilton Armenta MD Patient Correspondenceon Patient Correspondence [id number] F Normal [facility] CBC with Diffon 07-30-2023 Abs. Basophil 0.08 k/uL Normal 0.00-0.20 [facility] Comment on above: Performed By: #### T VALERIO REED LIP, CP #### [facility] [address] [place] [address] Production Ski Repairer: Harpal Adair MD Abs.Imm.Granulocyte 0.04 k/uL Normal 0.00-0.30 [facility] Comment on above: Performed By: #### T VALERIO REED, LIP, CP #### [address] [address] Production Ski Repairer: Harpal Adair MD Abs.Neutrophil (Seg) 6.94 k/uL Normal 1.50-8.10 [facility] Comment on above: Performed By: #### T SH, CDP, LIP, CP #### [facility] [address] [place] [address] Production Ski Repairer: Harpal Adair MD Basophils/100 WBC (Bld) 1 % Normal 0-2 [facility] Comment on above: Performed By: #### T SH, CDP, LIP, CP #### [facility] [address] [place] [address] Production Ski Repairer: Harpal Adair MD Eosinophils (Bld) [#/Vol] 0.23 10*3/uL Normal 0.00-0.44 [facility] Comment on above: Performed By: #### T SH, CDP, LIP, CP #### [facility] [address] [place] [address] Production Ski Repairer: Harpal Adair MD Eosinophils/100 WBC (Bld) 2 % Normal 1-4 [facility] Comment on above: Performed By: #### T SH, CDP, LIP, CP #### [facility] [address] [place] [address] Production Ski Repairer: Harpal Adair MD Erythrocyte distribution width (RBC) [Ratio] 15.3 % High 11.8-14.4 [facility] Comment on above: Performed By: #### T SH, CDP, LIP, CP #### [facility] [address] [place] [address] Production Ski Repairer: Harpal Adair MD Hematocrit (Bld) [Volume fraction] 38.8 % Normal 36.3-47.1 [facility] Comment on above: Performed By: #### T SH, CDP, LIP, CP #### [facility] [address] [place] [address] Production Ski Repairer: Harpal Adair MD Hemoglobin (Bld) [Mass/Vol] 12.5 g/dL Normal 11.9-15.1 [facility] Comment on above: Performed By: #### T SH, CDP, LIP, CP #### [address] [address] Production Ski Repairer: Harpal Adair MD Immature granulocytes/100 WBC (Bld) 0 % Normal 0 [facility] Comment on above: Performed By: #### T SH, CDP, LIP, CP #### [place] [address] Production Ski Repairer: Harpal Adair MD Lymphocytes (Bld) [#/Vol] 2.19 10*3/uL Normal 1.10-3.70 [facility] Comment on above: Performed By: #### T SH, CDP, LIP, CP #### [place] [address] Production Ski Repairer: Harpal Adair MD Lymphocytes/100 WBC (Bld) 21 % Low 24-43 [facility] Comment on above: Performed By: #### T SH, CDP, LIP, CP #### [place] [address] Production Ski Repairer: Harpal Adair MD MCH (RBC) [Entitic mass] 30.6 pg Normal 25.2-33.5 [facility] Comment on above: Performed By: #### T SH, CDP, LIP, CP #### [place] [address] Production Ski Repairer: Harpal Adair MD MCHC (RBC) [Mass/Vol] 32.2 g/dL Normal 28.4-34.8 [facility] Comment on above: Performed By: #### T SH, CDP, LIP, CP #### [place] [address] Production Ski Repairer: Harpal Adair MD MCV (RBC) [Entitic vol] 94.9 fL Normal 82.6-102.9 [facility] Comment on above: Performed By: #### T SH, CDP, LIP, CP #### [address] [address] Production Ski Repairer: Harpal Adair MD Monocytes (Bld) [#/Vol] 0.74 10*3/uL Normal 0.10-1.20 [facility] Comment on above: Performed By: #### T SH, CDP, LIP, CP #### [address] [address] Production Ski Repairer: Harpal Adair MD Monocytes/100 WBC (Bld) 7 % Normal 3-12 [facility] Comment on above: Performed By: #### T SH, CDP, LIP, CP #### [address] [address] Production Ski Repairer: Harpal Adair MD Neutrophil (Seg) 69 % High 36-65 [facility] Comment on above: Performed By: #### T SH, CDP, LIP, CP #### [address] [address] Production Ski Repairer: Harpal Adair MD NRBC Automated 0.0 per 100 WBC Normal 0.0 [facility] Comment on above: Performed By: #### T SH, CDP, LIP, CP #### [address] [address] Production Ski Repairer: Harpal Adair MD Platelet mean volume (Bld) [Entitic vol] 12.0 fL Normal 8.1-13.5 [facility] Comment on above: Performed By: #### T SH, CDP, LIP, CP #### [facility] [employer] [address] [place] [address] [employer] Ski Repairer: Harpal Adair MD Platelets (Bld) [#/Vol] 348 10*3/uL Normal 138-453 [facility] Comment on above: Performed By: #### T SH, CDP, LIP, CP #### [facility] [employer] [address] [place] [address] Production Ski Repairer: Harpal Adair MD RBC (Bld) [#/Vol] 4.09 10*6/uL Normal 3.95-5.11 [facility] Comment on above: Performed By: #### T SH, CDP, LIP, CP #### [facility] [employer] [address] [place] [address] [employer] Ski Repairer: Harpal Adair MD RBC morphology finding Nom (Bld) ANISOCYTOSIS PRESENT Normal [facility] Comment on above: Performed By: #### T SH, CDP, LIP, CP #### [facility] [employer] [address] [place] [address] [employer] Ski Repairer: Harpal Adair MD WBC (Bld) [#/Vol] 10.2 10*3/uL Normal 3.5-11.3 [facility] Comment on above: Performed By: #### T SH, CDP, LIP, CP #### [facility] [employer] [address] [place] [address] [employer] Ski Repairer: Harpal Adair MD Comp Metabolic Profon 2022 Bilirubin [Mass/Vol] mg/dL Low 0.3-1.2 [facility] Comment on above: Performed By: #### T SH, CDP, LIP, CP #### [facility] [employer] [address] [place] [address] [employer] Ski Repairer: Harpal Adair MD Albumin [Mass/Vol] 4.4 g/dL Normal 3.5-5.2 [facility] Comment on above: Performed By: #### T SH, CDP, LIP, CP #### [facility] [employer] [address] [place] [address] [employer] Ski Repairer: Harpal Adair MD Albumin/Glob Ratio 1.4 Normal 1.0-2.5 [facility] Comment on above: Performed By: #### T SH, CDP, LIP, CP #### [facility] [employer] [address] [place] [address] [employer] Ski Repairer: Harpal Adair MD Alkaline Phos 76 U/L Normal 35-104 [facility] Comment on above: Performed By: #### T SH, CDP, LIP, CP #### [address] [address] Production Ski Repairer: Harpal Adair MD ALT [Catalytic activity/Vol] 20 U/L Normal 5-33 [facility] Comment on above: Performed By: #### T SH, CDP, LIP, CP #### [address] [address] Production Ski Repairer: Harpal Adair MD Anion gap [Moles/Vol] 11 mmol/L Normal 9-17 [facility] Comment on above: Performed By: #### T SH, CDP, LIP, CP #### [address] [address] Production Ski Repairer: Harpal Adair MD AST [Catalytic activity/Vol] 22 U/L Normal <32 [facility] Comment on above: Performed By: #### T SH, CDP, LIP, CP #### [address] [address] Production Ski Repairer: Harpal Adair MD Calcium [Mass/Vol] 9.6 mg/dL Normal 8.6-10.4 [facility] Comment on above: Performed By: #### T SH, CDP, LIP, CP #### [facility] [employer] [address] [place] [address] Production Ski Repairer: Harpal Aadir MD Chloride [Moles/Vol] 105 mmol/L Normal 98-107 [facility] Comment on above: Performed By: #### T SH, CDP, LIP, CP #### [facility] [employer] [address] [place] [address] Production Ski Repairer: Harpal Adair MD CO2 [Moles/Vol] 23 mmol/L Normal 20-31 [facility] Comment on above: Performed By: #### T VALERIO REED LIP, CP #### [facility] [employer] [address] [place] [address] Production Ski Repairer: Harpal Adair MD Creatinine [Mass/Vol] 0.6 mg/dL Normal 0.5-0.9 [facility] Comment on above: Performed By: #### T VALERIO REED, LIP, CP #### [address] [address] Production Ski Repairer: Harpal Adair MD GFR/1.73 sq M.predicted among non-blacks MDRD (S/P/Bld) [Vol rate/Area] mL/min/{1.73_m2} Normal >60 [facility] Comment on above: Result Comment: These [...] #### T VALERIO REED LIP, CP #### [address] [address] Production Ski Repairer: Harpal Adair MD Glucose [Mass/Vol] 73 mg/dL Normal 70-99 [facility] Comment on above: Performed By: #### T VALERIO REED, LIP, CP #### [facility] [employer] [address] [place] [address] Production Ski Repairer: Harpal Adair MD Potassium [Moles/Vol] 4.0 mmol/L Normal 3.7-5.3 [facility] Comment on above: Performed By: #### T VALERIO REED, LIP, CP #### [facility] [address] [place] [address] [place] [address] Production Ski Repairer: Harpal Adair MD Protein [Mass/Vol] 7.5 g/dL Normal 6.4-8.3 [facility] Comment on above: Performed By: #### T SH, CDP, LIP, CP #### [address] [address] Production Ski Repairer: Harpal Adair MD Sodium [Moles/Vol] 139 mmol/L Normal 135-144 [facility] Comment on above: Performed By: #### T SH, CDP, LIP, CP #### [address] [address] Production Ski Repairer: Harpal Adair MD Urea nitrogen [Mass/Vol] 15 mg/dL Normal 6-20 [facility] Comment on above: Performed By: #### T SH, CDP, LIP, CP #### [address] [address] Production Ski Repairer: Harpal Adair MD Lipaseon 07-30-2023 Lipase [Catalytic activity/Vol] 45 U/L Normal 13-60 [facility] Comment on above: Performed By: #### T SH, CDP, LIP, CP #### [address] [address] Production Ski Repairer: Harpal Adair MD Thyroid Stim. Horm.on 2022 Thyroid Stim. Horm. 1.18 uIU/mL Normal 0.30-5.00 [facility] Comment on above: Performed By: #### T SH, CDP, LIP, CP #### [address] [address] Production Ski Repairer: Harpal Adair MD UA w/Reflex Cultureon 2022 Bilirubin, SemiQt,Ur Negative Normal NEG [facility] Comment on above: Performed By: #### U AX #### [address] [address] Production Ski Repairer: Harpal Adair MD Blood, Urine Negative Normal NEG [facility] Comment on above: Performed By: #### U AX #### [address] [address] Production Ski Repairer: Harpal Adair MD Clarity (U) Clear Normal CLEAR [facility] Comment on above: Performed By: #### U AX #### [address] [address] Production Ski Repairer: Harpal Adair MD Color (U) Yellow Normal YEL [facility] Comment on above: Performed By: #### U AX #### [address] [address] Production Ski Repairer: Harpal Adair MD Comment Microscopic exam not performed based on chemical results unless requested in Normal [facility] Comment on above: Result Comment: orig inal order. Performed By: #### U AX #### [address] [address] Production Ski Repairer: Harpal Adair MD Glucose Ql (U) Negative Normal NEG [facility] Comment on above: Performed By: #### U AX #### [address] [address] Production Ski Repairer: Harpal Adair MD Ketones Ql (U) Negative Normal NEG [facility] Comment on above: Performed By: #### U AX #### [address] [address] Production Ski Repairer: Harpal Adair MD Leukocyte esterase Test strip Ql (U) Negative Normal NEG [facility] Comment on above: Performed By: #### U AX #### [address] [address] Production Ski Repairer: Harpal Adair MD Nitrite,Ur Negative Normal NEG [facility] Comment on above: Performed By: #### U AX #### [address] [place] [address] Production Ski Repairer: Harpal Adair MD PH,Ur 5.0 Normal 5.0-8.0 [facility] Comment on above: Performed By: #### U AX #### [address] [address] Production Ski Repairer: Harpal Adair MD Protein Ql (U) Negative Normal NEG [facility] Comment on above: Performed By: #### U AX #### [address] [address] Production Ski Repairer: Harpal Adair MD Spec. [place],Ur 1.020 Normal 1.005-1.030 [facility] Comment on above: Performed By: #### U AX #### [address] [address] Production Ski Repairer: Harpal Adair MD Urobilinogen,Ur Normal Normal 0.0-1.0 [facility] Comment on above: Performed By: #### U AX #### [address] [address] Production Ski Repairer: Harpal Adair MD ED Note-Physicianon 07-14-20 23 ED Note-Physician Basic Information Time Seen: Shama Macdonald PA-C 06/09/2023 15:45 Chief Complaint Pt presents to ED with complaints of MALDONADO onset today. History of Present Illness This patient presents to the emergency department chief complaint of maryam. She states that she has spent $10,000 in the last 2 weeks. She did see her psychiatrist at [facility] today and they are starting her [...] of care. (more content not included)... Normal [facility] Comment on above: Result Comment: Elec tronically Signed By: Shama Macdonald PA-C\.br\Date and Time Signed: 07/14/23 19:57 EDT\.br\Electronically Co-Signed By: Alexis Shukla DO\.br\Date and Time Co-Signed: 07/20/23 07:11 EST COVID Quick Testingon 2022 Result Negative Above Security Other Consultation Noteon 07-08-20 Consultation Note [id number]#[id number] F Normal [facility] Consent for Treatmenton 06-14 Consent for Treatment [id number]#[id number] F Normal [facility] ED Clinical Summaryon 2022 ED Clinical Summary (Inserted Image. Jordana ble to display) [address] [address] ED Clinical Summary Person Information Name: SHAZIA CHOU [facility] Age: 32 Years : 1990 Sex: Female Language: Maltese PCP: Jennie Ames DO Marital Status: Phone: [phone] MRN: Visit Id: Visit Reason: Headache; Neck [...] 07/02/2023 15:29:14 07/02/2023 15:29:14 07/02/2023 15:29:14 ADDRESS: [address] [place] [phone] PHYS DOC NOTES: MEDICAL INFORMATION: Prescriptions Given: [...] EDUCATION INFORMATION: Instructions: Follow up: DIAGNOSIS: Normal [facility] ED Patient Education Noteon 07-02-2023 ED Patient Education Note Normal [facility] ED Patient Summaryon 023 ED Patient Summary (Inserted Image. Jordana ble to display) [place] [id number] Patient Discharge Instructions Person Information Name: SHAZIA CHOU Age: 32 Years Arrival Date: 07/02/2023 14:03:05 Discharge Diagnosis: Primary Care Physician: Jennie Ames DO Provider Information Primary Provider: Bakari Chester DO Advanced Chef Concierge:Merari Polanco PA-C The exam and treatment you received in the Emergency Department were for an urgent problem and are not intended as complete care. It is important that you follow up with a doctor, nurse practitioner, or physician?s graduate research assistant for ongoing care. If your symptoms [...] opioids can be used to help relieve nkgiifxv-bz-kdwtzm pain and are often prescribed following a [...] be struggling with addiction, tell your health critical care nurse practitioner and ask for guidance or call SAMHSA?S National Helpline at 7-481-165-HELP. v Source: [place] Department of Health and Human Services/Center for Disease Control & Prevention [facility] Medications Given: Medication Dose Route No medication (more content not included)... Normal [facility] Consultation Noteon 06-22-20 Consultation Note [id number]#[id number] Normal [facility] Consultation Noteon 06-19-20 Consultation Note [id number]#[id number] F [facility] CNPNon 06-15-2023 CNPN Telephone (NEADFV) -------- SHAZIA CHOU ([id number]) 1990 F Date Time Provider Department 06/15/23 EILEEN MANZANO During your visit today, we recorded the following information about you: Bunny Durbin, RN 06/15/2023 4:57 PM Signed Received clinical notes and test results from [facility] ED visit from 06/10/23. 13 pages. Scanned to chart via [employer]. Routed to provider for review Glen Singh [...] is not alleviating the problem. Patient # [phone] Gorge Betancur 07/03/2023 12:15 PM Signed Per instructions from Dr. Manzano. for patient, also sent message via [employer]. She needs to be back on diamox [...] 40 mg by mouth once daily. - acfumrytidep-ggn-ihnm-FA -vit K (BARIATRIC MULTIVITAMINS) 45 mg iron- [...] Encounter Status:Closed by GORGE BETANCUR [facility] SHAZIA CHOU ([id number]) 1990 F Date Time Provider Department 06/15/23 EILEEN MANZANO During your visit today, we recorded the following information about you: Sharon Cassidy Fabby 06/15/2023 3:[address] Brain report from [facility]. Scanned to chart for review. Bunny Durbin RN 06/15/2023 4:[address] brain results available in scanned documents for your review. Bunny Durbin RN 06/16/2023 3:04 PM Signed Call to patient without answer. Voice message left asking her to review her [employer] message with a response from . Informed [...] 40 mg by mouth once daily. - brhfrcpgmlqr-tnu-hybo-FA -vit K (BARIATRIC MULTIVITAMINS) 45 mg iron- [...] Encounter Status:Closed by BUNNY DURBIN on 06/16/23 [facility] 06-11-2023 [facility] Telephone (NECVS8) -------- SHAZIA CHOU ([id number]) 1990 F Date Time Provider Department 06/11/23 [...] Antonio, 1990). 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 The results are available [facility]. Patient is still experiencing vision changes and headaches. [phone] [facility]. You will receive a return call [...] Signed Spoke with Karin at radiology at [facility]. She will fax the CT Brain results to our office. Fax number provided. Bunny Durbin RN 06/12/2023 2:53 PM Signed As of this hour, no fax received for CT Brain . Spoke with volunteer patient representative again in radiology and different fax [...] was evaluated in the ED today at [place] for complaints of 'feeling like someone was [...] 40 mg by mouth once daily. - kjynihqpaqva-ywz-kazy-FA -vit K (BARIATRIC MULTIVITAMINS) 45 mg iron- [...] [facility] Discharge Instructionson Discharge Instructions [id number]#[id number] :127 Normal [facility] Acetamnphn Lvlon 06-09-2023 Acetaminophen [Mass/Vol] ug/mL Low 15-30 [facility] Comment on above: Performed By: #### 2 099487, 8389717, 8059308, 9260966, 5331538, 66856685 ####[facility] [address] [place] [address] Auto Diffon 06-09-2023 Basophils/100 WBC (Bld) 0.6 % Normal 0.0-2.0 [facility] Comment on above: Order Comment: Order Added by Discern Expert. Performed By: #### 2 444387, 7208313, 6869883, 3761471, 9664306, 80580902 ####[facility] [address] [place] [address] Basophils/Leukocytes Auto (Bld) [Pure # fraction] 0.0 E9/L Normal 0.0-0.2 [facility] Comment on above: Order Comment: Order Added by Discern Expert. Performed By: #### 2 405761, 3944070, 7028513, 8822796, 0679331, 45664400 ####[facility] [address] [place] [address] Eosinophils/100 WBC (Bld) 1.9 % Normal 0.0-8.0 [facility] Comment on above: Order Comment: Order Added by Ilana Expert. Performed By: #### 2 544340, 2571158, 6226052, 7236313, 8130604, 57671342 ####[facility] [address] [place] [address] Eosinophils/Leukocyte s Auto (Bld) [Pure # fraction] 0.2 E9/L Normal 0.0-0.5 [facility] Comment on above: Order Comment: Order Added by Discern Expert. Performed By: #### 2 889083, 1371895, 6435343, 0425751, 7967741, 89037276 ####[address] [address] Lymphocytes/100 WBC (Bld) 23.4 % Normal 14.0-50.0 [facility] Comment on above: Order Comment: Order Added by Ilana Expert. Performed By: #### 2 540012, 6384731, 3218743, 2424515, 2011239, 95396473 ####[address] [address] Lymphocytes/Leukocyte s Auto (Bld) [Pure # fraction] 2.0 E9/L Normal 1.0-4.0 [facility] Comment on above: Order Comment: Order Added by Ilana Expert. Performed By: #### 2 339400, 0785741, 5749699, 9300015, 1517807, 75486539 ####[address] [address] Monocytes/100 WBC (Bld) 6.9 % Normal 4.0-14.0 [facility] Comment on above: Order Comment: Order Added by Ilana Expert. Performed By: #### 2 974552, 2852560, 7782604, 7978941, 9176899, 34484631 ####[place] [address] [place] [address] Monocytes/Leukocytes Auto (Bld) [Pure # fraction] 0.6 E9/L Normal 0.2-1.0 [facility] Comment on above: Order Comment: Order Added by Discern Expert. Performed By: #### 2 497905, 4523748, 8347178, 2378551, 3048896, 91362331 ####[address] [place] [address] Neutrophils/100 WBC (Bld) 67.2 % Normal 36.0-75.0 [facility] Comment on above: Order Comment: Order Added by Discern Expert. Performed By: #### 2 102250, 3042862, 9416190, 8038322, 3175770, 79159198 ####[address] [place] [address] Neutrophils/Leukocyte s Auto (Bld) [Pure # fraction] 5.6 E9/L Normal 2.0-7.5 [facility] Comment on above: Order Comment: Order Added by Discern Expert. Performed By: #### 2 375042, 7453349, 4510620, 7880288, 6543349, 81166254 ####[address] [address] CBC w/ Auto Diffon 3 Erythrocyte distribution width (RBC) [Ratio] 18.2 % High 10.9-14.2 [facility] Comment on above: Performed By: #### 2 740851, 3907597, 2451908, 0679240, 6481756, 69373222 ####[address] [place] [address] Hematocrit (Bld) [Volume fraction] 34.3 % Normal 34.0-46.0 [facility] Comment on above: Performed By: #### 2 543297, 6148474, 0289112, 5494751, 3186472, 07457413 ####[address] [place] [address] Hemoglobin (Bld) [Mass/Vol] 11.5 g/dL Low 12.0-16.0 [facility] Comment on above: Performed By: #### 2 794267, 1822176, 6836944, 7462263, 1670148, 24208848 ####[facility] [address] [place] [address] MCH (RBC) [Entitic mass] 30.6 pg Normal 27.0-34.0 [facility] Comment on above: Performed By: #### 2 756998, 1563689, 5045583, 1637700, 7729221, 80536305 ####[address] [address] MCHC (RBC) [Mass/Vol] 33.6 g/dL Normal 31.4-36.0 [facility] Comment on above: Performed By: #### 2 292437, 1489179, 8659870, 6716726, 9087432, 68780035 ####[address] [address] MCV (RBC) [Entitic vol] 91.0 fL Normal 80.0-100.0 [facility] Comment on above: Performed By: #### 2 038606, 6241823, 6544121, 2980489, 4047956, 77827228 ####[address] [address] Platelet mean volume (Bld) [Entitic vol] 9.8 fL Normal 6.4-10.8 [facility] Comment on above: Performed By: #### 2 503119, 2389182, 5484763, 3137646, 1183241, 30376890 ####[address] [address] Platelets (Bld) [#/Vol] 283.0 E9/L Normal 150.0-500.0 [facility] Comment on above: Performed By: #### 2 254586, 7978224, 8176094, 8198206, 4294989, 36178484 ####[address] [address] RBC (Bld) [#/Vol] 3.8 E12/L Low 4.3-5.9 [facility] Comment on above: Performed By: #### 2 605682, 4706159, 2424214, 4557169, 6271264, 03317467 ####[facility] [address] [place] [address] WBC corrected for nucl RBC Auto (Bld) [#/Vol] 8.4 E9/L Normal 4.0-11.0 [facility] Comment on above: Performed By: #### 2 828051, 9586351, 3434149, 7028570, 9747651, 43868243 ####[facility] [address] [place] [address] CMPon 06-09-2023 Albumin [Mass/Vol] 4.1 g/dL Normal 3.3-5.0 [facility] Comment on above: Performed By: #### 2 363686, 4959099, 6128525, 9855507, 0006517, 62137530 ####[address] [place] [address] Albumin/Globulin (S) [Mass conc ratio] 1.3 Normal 1.1-2.2 [facility] Comment on above: Performed By: #### 2 229645, 5913661, 1687198, 6590834, 0315022, 17744708 ####[address] [place] [address] ALP [Catalytic activity/Vol] 58 Int._Unit/L Normal 21-98 [facility] Comment on above: Performed By: #### 2 703459, 1715999, 1473866, 6264490, 5072093, 41314291 ####[facility] [address] [place] [address] ALT No additional P-5'-P [Catalytic activity/Vol] 18 Int._Unit/L Normal 6-46 [facility] Comment on above: Performed By: #### 2 943059, 2518686, 1253334, 8419464, 4814328, 14312684 ####[address] [place] [address] AST [Catalytic activity/Vol] 20 Int._Unit/L Normal 5-43 [facility] Comment on above: Performed By: #### 2 091762, 6938064, 1294637, 9538634, 3664203, 77206054 ####[facility] [address] [place] [address] Bilirubin [Mass/Vol] 0.1 mg/dL Normal 0.0-1.1 [facility] Comment on above: Performed By: #### 2 226023, 3272453, 8684974, 6008869, 5043615, 40590556 ####[facility] [address] [place] [address] Creatinine [Mass/Vol] 0.6 mg/dL Normal 0.5-1.3 [facility] Comment on above: Performed By: #### 2 946797, 6331831, 0661113, 6939701, 2247536, 86592672 ####[facility] [address] [place] [address] Globulin (S) [Mass/Vol] 3.2 g/dL Normal 1.4-4.0 [facility] Comment on above: Performed By: #### 2 844107, 8220741, 4211398, 7536046, 9551424, 99710993 ####[facility] [address] [place] [address] Protein [Mass/Vol] 7.3 g/dL Normal 6.0-7.8 [facility] Comment on above: Performed By: #### 2 166310, 3565221, 6468674, 4703820, 3114714, 43616706 ####[facility] [address] [place] [address] Urea nitrogen [Mass/Vol] 15 mg/dL Normal 5-21 [facility] Comment on above: Performed By: #### 2 262212, 1824641, 3219817, 4696995, 0936520, 91420916 ####[facility] [address] [place] [address] Urea nitrogen/Creatinine [Mass ratio] 25 No Units High 10-20 [facility] Comment on above: Performed By: #### 2 935466, 0750617, 5187657, 6026183, 3001706, 19701116 ####[facility] [address] [place] [address] Anion gap [Moles/Vol] 13 mmol/L Normal 6-16 [facility] Comment on above: Performed By: #### 2 535967, 9388187, 9427015, 6602311, 9042992, 28740036 ####[facility] [address] [place] [address] Calcium [Mass/Vol] 9.3 mg/dL Normal 8.9-11.1 [facility] Comment on above: Performed By: #### 2 442147, 0881711, 8213644, 7119268, 0918193, 18549461 ####[facility] [address] [place] [address] Chloride [Moles/Vol] 107 mmol/L Normal 101-111 [facility] Comment on above: Performed By: #### 2 950316, 0086707, 2994428, 6306787, 3719822, 82809047 ####[facility] [address] [place] [address] CO2 [Moles/Vol] 23 mmol/L Normal 21-31 [facility] Comment on above: Performed By: #### 2 713520, 3024398, 9294817, 0906409, 4650736, 95347260 ####[facility] [address] [place] [address] Glucose [Mass/Vol] 91 mg/dL Normal 55-199 [facility] Comment on above: Result Comment: If t his glucose result represents a fasting glucose, interpretation should refer to the following reference range: 55-99 mg/dL Performed By: #### 2 680939, 2332814, 0209371, 7867142, 2320826, 37470509 ####[facility] [address] [place] [address] Potassium [Moles/Vol] 3.6 mmol/L Normal 3.5-5.3 [facility] Comment on above: Performed By: #### 2 333821, 0169844, 3765047, 1401206, 5543556, 96021249 ####[facility] [address] [place] [address] Sodium [Moles/Vol] 139 mmol/L Normal 135-145 [facility] Comment on above: Performed By: #### 2 088896, 4364330, 7301514, 6887788, 0909022, 94706916 ####[facility] [address] [place] [address] Consent for Treatmenton 05-16 Consent for Treatment [id number]: 127 Normal [facility] ED Clinical Summaryon 2022 ED Clinical Summary (Inserted Image. Jordana ble to display) [address] [address] ED Clinical Summary Person Information Name: SHAZIA CHOU [facility] [facility] Age: 32 Years : 1990 Sex: Female Language: Maltese PCP: Jennie Ames DO Marital Status: Phone: [phone] Visit Id: Visit Reason: Headache; HEADACHE Speciality: [...] 06/09/2023 18:42:22 06/09/2023 18:42:22 06/09/2023 18:42:22 ADDRESS: [address] [place] [id number] PHYS DOC NOTES: MEDICAL INFORMATION: Prescriptions Given: [...] (at bedtime). PATIENT EDUCATION INFORMATION: Instructions: Paresthesia, Slew-ss-Fesy; Migraine Headache, Shub-ga-Xaap Follow up: With: Address: When: [facility] In 3 days 06/12/2023 With: Address: When: Jennie De La Paz, Mic C, Michael [address] [place] [address] Business (1) In 3 days 06/12/2023 DIAGNOSIS: 1:Headache; 2:Paresthesia of arm Normal [facility] ED Patient Education Noteon 06-09-2023 ED [...] liquor (44 mL). General instructions ? Take jnzu-lxl-mgvznuv and prescription medicines only as told by [...] provider. Document Revised: 05/12/2022 Document Reviewed: 05/12/2022 [facility] Patient Education ? 2022 CMGE. Migraine Headache A migraine headache is a [...] ? Tiredness. (more content not included)... Normal [facility] ED Patient Summaryon 023 ED Patient Summary (Inserted Image. Jordana ble to display) [address] [address] Patient Discharge Instructions Person Information Name: SHAZIA CHOU Age: 32 Years Arrival Date: 06/09/2023 15:33:36 Discharge Diagnosis: 1:Headache; 2:Paresthesia of arm Primary Care Physician: Jennie Ames DO Provider Information Primary Provider: Alexis Shukla DO Advanced Chef Concierge:None The exam and treatment you received in the Emergency Department were for an urgent problem and are not intended as complete care. It is important that you follow up with a doctor, nurse practitioner, or physician?s graduate research assistant for ongoing care. If your symptoms become worse or you do not improve as expected and you are unable to reach your usual health care provider, you should return to the Emergency Department. We are available 24 hours a day. SHAZIA CHOU has been given the following list of patient education materials, prescriptions and follow-up instructions: Follow-up Instructions: With: Address: When: [facility] In 3 days 06/12/2023 With: Address: When: Jennie Ames [address], [address] [place] [address] Business (1) In 3 days 06/12/2023 In the event that this physician does not participate in your insurance network, please consult with your insurance company to find a nearby participating provider. Patient Education Materials: Paresthesia, Dlwe-rc-Xdkh; Migraine Headache, Axzo-gs-Zlhr A MESSAGE TO ALL PATIENTS REGARDING OPIOIDS PRESCRIPTION OPIOIDS: WHAT YOU NEED TO KNOW Prescription opioids can be used to help relieve czsvpfxw-jc-bffhcz pain and are often prescribed following a [...] addiction, tell (more content not included)... Normal [facility] Ethanolon 06-09-2023 Ethanol [Mass/Vol] mg/dL Normal <=7 [facility] Comment on above: Performed By: #### 2 [id number] ####[facility] [address] [place] [address] Salicylateon 06-09-2023 Salicylates [Mass/Vol] mg/dL Low 6-29 [facility] Comment on above: Performed By: #### 2 038554, 6704335, 4307606, 4331153, 9572137, 59069194 ####[facility] [address] [place] [address] U Drug Screenon 06-09-2023 Amphetamines Screen method >1000 ng/mL Ql (U) Negative Normal Negative [facility] Comment on above: Result Comment: Nega tive Cutoff: <1000 ng/mL Performed By: #### 2 888220 ####[facility] [address] [place] [address] Barbiturates Screen Ql (U) Negative Normal Negative [facility] Comment on above: Result Comment: Nega tive Cutoff: <200 ng/mL Performed By: #### 2 178909 ####[address] [place] [address] Benzodiazepines Ql (U) Negative Normal Negative [facility] Comment on above: Result Comment: Nega tive Cutoff: <200 ng/mL Performed By: #### 2 917343 ####[address] [place] [address] Cocaine Ql (U) Negative Normal Negative [facility] Comment on above: Result Comment: Nega tive Cutoff: <300 ng/mL Performed By: #### 2 529434 ####[address] [place] [address] Opiates Screen Ql (U) Negative Normal Negative [facility] Comment on above: Result Comment: Nega tive Cutoff: <300 ng/mL Performed By: #### 2 489833 ####[address] [address] Phencyclidine Screen method >25 ng/mL Ql (U) Negative Normal Negative [facility] Comment on above: Result Comment: Nega tive Cutoff: <25 ng/mL These drug screen results are to be used for medical (i.e., treatment) purposes only. Unconfirmed drug screening results must not be used for non-medical purposes (e.g., employment testing, legal testing). Performed By: #### 2 392537 ####[address] [place] [address] Tetrahydrocannabinol Screen method >50 ng/mL Ql (U) Negative Normal Negative [facility] Comment on above: Result Comment: Nega tive Cutoff: <50 ng/mL Performed By: #### 2 566428 ####[facility] [address] [place] [address] UA With Cult Reflexon 2022 Bilirubin Ql (U) Negative Normal Negative [facility] Comment on above: Performed By: #### 1 7254875 #### [facility] [address] [place] [address] Clarity (U) CLEAR Normal Clear [facility] Comment on above: Performed By: #### 1 7345217 #### [facility] [address] [place] [address] Color (U) YELLOW Normal Yellow [facility] Comment on above: Performed By: #### 1 8717722 #### [facility] [address] [place] [address] Crystals LM Ql (Urine sed) Present Normal [facility] Comment on above: Performed By: #### 1 7515588 #### [facility] [address] [place] [address] Epithelial cells.squamous LM.HPF (Urine sed) [#/Area] 0-2 Normal 0-2 [facility] Comment on above: Performed By: #### 1 0777573 #### [facility] [address] [place] [address] Glucose Test strip (U) [Mass/Vol] Negative Normal Negative [facility] Comment on above: Performed By: #### 1 2848105 #### [facility] [address] [place] [address] Hemoglobin Ql (U) Negative Normal Negative [facility] Comment on above: Performed By: #### 1 3201023 #### [facility] [address] [place] [address] Ketones (U) [Mass/Vol] Negative Normal Negative [facility] Comment on above: Performed By: #### 1 1766725 #### [facility] [address] [place] [address] [place].plasma/Lithiu m.RBC (Bld) [Mass ratio] 0-3 Normal 0-3 [facility] Comment on above: Performed By: #### 1 0153855 #### [facility] [address] [place] [address] Nitrite Ql (U) Negative Normal Negative [facility] Comment on above: Performed By: #### 1 3165088 #### [facility] [address] [place] [address] pH (U) 6.0 [pH] Invalid Interpretation Code 5.0-9.0 [facility] Comment on above: Performed By: #### 1 1474222 #### [facility] [address] [place] [address] Protein (U) [Mass/Vol] Negative Normal Negative [facility] Comment on above: Performed By: #### 1 0441623 #### [facility] [address] [place] [address] Specific gravity (U) [Rel density] 1.010 Invalid Interpretation Code 1.005-1.030 [facility] Comment on above: Performed By: #### 1 1930987 #### [facility] [address] [place] [address] Type of Urine collection method Clean Catch Normal [facility] Comment on above: Performed By: #### 1 3542358 #### [facility] [address] [place] [address] Urobilinogen Qn (U) 0.2 {Lucila'U}/dL Normal 0.0-1.0 [facility] Comment on above: Performed By: #### 1 7212531 #### [facility] [address] [place] [address] WBC Auto Ql (U) Negative Normal Negative [facility] Comment on above: Performed By: #### 1 1912111 #### [facility] [address] [place] [address] WBC LM.HPF (Urine sed) [#/Area] 0-5 Normal 0-5 [facility] Comment on above: Performed By: #### 1 8070572 #### [facility] [address] [place] [address] eGFRon 06-09-2023 GFR/1.73 sq M.predicted among non-blacks MDRD (S/P/Bld) [Vol rate/Area] 121 mL/min/1.73 m2 Normal >=59 [facility] Comment on above: Order Comment: Order added by Discern Expert. Result Comment: Park Recreation Manager gurpreet kidney disease could be indicated at eGFR's of less than 60 mL/min/1.73m2. Kidney failure is indicated at less than 15 mL/min/1.73m2. Performed By: #### 2 340017, 7932444, 2584641, 7282178, 3520349, 33927957 ####[facility] [address] [place] [address] Vit Aon 03-24-2023 Retinol [Mass/Vol] 42.9 microgram/dL Invalid Interpretation Code 18.9-57.3 [facility] Comment on above: Result Comment: Refe rence intervals for vitamin A determined from [facility] internal studies. Individuals with vitamin A less than 20 ug/dL are considered vitamin A deficient and those with serum concentrations less than 10 ug/dL are considered severely deficient. This test was developed and its performance characteristics determined by [employer]. It has not been cleared or approved by the Food and Drug Administration. Performed at: [address] [id number] MD Shorty Rodríguez Performed By: #### 2 200453, 10766469, 4630709, 2832401, 71199829, 22222416, 132129885, 6813055, 5765544, 06251012, 8828484, 3226881, 805415868, 38648489, 2389264, 9105323, 2711056, 2558472 ####[facility] [address] [place] [address] Vit B1on 03-24-2023 Thiamine (Bld) [Moles/Vol] 171.7 nmol/L Invalid Interpretation Code 66.5-200.0 [facility] Comment on above: Result Comment: This test was developed and its performance characteristics determined by [employer]. It has not been cleared or approved by the Food and Drug Administration. Performed at: [address] [id number] MD Shorty Rodríguez Performed By: #### 2 127932, 89680636, 0113922, 8009844, 00020296, 16848090, 822699641, 6523243, 2907266, 82650745, 6585415, 3822169, 132545203, 45431308, 5445626, 2670629, 2151039, 3469711 ####[facility] [address] [place] [address] Zinc Lvlon 03-24-2023 Zinc [Mass/Vol] 85 microgram/dL Invalid Interpretation Code 44-115 [facility] Comment on above: Result Comment: This test was developed and its performance characteristics determined by [employer]. It has not been cleared or approved by the Food and Drug Administration. Detection Limit = 5 Performed at: [address] [id number] MD Shorty Rodríguez Performed By: #### 2 864500, 31725675, 7726554, 4689051, 33881800, 30955021, 278677802, 8320498, 1086935, 22926798, 1656701, 3242463, 238381363, 02776382, 8104091, 4846655, 6279404, 2638615 ####[facility] [address] [place] [address] PTH Intacton 03-20-2023 Parathyrin.intact [Mass/Vol] 17 pg/mL Invalid Interpretation Code 15 [facility] Comment on above: Result Comment: Perf ormed at: [address] [id number] PhD Cordelia Madera Performed By: #### 1 8923800 ####[facility] [address] [place] [address] Auto Diffon 03-19-2023 Basophils/100 WBC (Bld) 1.1 % Normal 0.0-2.0 [facility] Comment on above: Order Comment: Order Added by Discern Expert. Performed By: #### 2 299659, 32068597, 7488112, 8577666, 46036168, 87994485, 461373568, 5072124, 2473793, 90298072, 3457294, 2088405, 856927235, 52303190, 5574548, 4801499, 5036814, 8733057 ####[facility] [address] [place] [address] Basophils/Leukocytes Auto (Bld) [Pure # fraction] 0.1 E9/L Normal 0.0-0.2 [facility] Comment on above: Order Comment: Order Added by Discern Expert. Performed By: #### 2 755494, 34695535, 5759936, 6908583, 92423938, 14259602, 648200185, 8383728, 4873285, 86218239, 6193697, 1116840, 256985538, 05487578, 9860932, 9430316, 4969521, 1486057 ####[address] [place] [address] Eosinophils/100 WBC (Bld) 4.1 % Normal 0.0-8.0 [facility] Comment on above: Order Comment: Order Added by Discern Expert. Performed By: #### 2 085286, 29135760, 9788592, 9508717, 09489130, 92352845, 201660404, 6230803, 9024576, 85316749, 6108284, 3956315, 646496260, 49327459, 8698067, 7079391, 7032237, 6408998 ####[facility] [address] [place] [address] Eosinophils/Leukocyte s Auto (Bld) [Pure # fraction] 0.4 E9/L Normal 0.0-0.5 [facility] Comment on above: Order Comment: Order Added by Discern Expert. Performed By: #### 2 146673, 78748822, 1912436, 5829260, 26506904, 14285745, 792220289, 6848266, 3058215, 78282557, 2730776, 3743591, 382586548, 11377327, 9743112, 7037472, 1593829, 9510532 ####[facility] [address] [place] [address] Lymphocytes/100 WBC (Bld) 20.5 % Normal 14.0-50.0 [facility] Comment on above: Order Comment: Order Added by Discern Expert. Performed By: #### 2 184056, 41878296, 1736544, 8908001, 82082595, 26479626, 427890283, 5352519, 4970717, 23672811, 9142015, 3184871, 665266525, 62039555, 2858900, 4486190, 9052377, 8165946 ####[address] [place] [address] Lymphocytes/Leukocyte s Auto (Bld) [Pure # fraction] 2.1 E9/L Normal 1.0-4.0 [facility] Comment on above: Order Comment: Order Added by Discern Expert. Performed By: #### 2 851091, 65498960, 4243008, 4342700, 29772971, 14442748, 529034906, 1566247, 9787032, 36810347, 4810214, 5069542, 224128272, 34873864, 8289532, 7232086, 5363382, 5639709 ####[address] [place] [address] Monocytes/100 WBC (Bld) 7.6 % Normal 4.0-14.0 [facility] Comment on above: Order Comment: Order Added by Discern Expert. Performed By: #### 2 842696, 17689537, 8150512, 8827060, 38172468, 82585088, 715826120, 5272055, 6427661, 21528607, 7742971, 7712219, 337862572, 25185960, 6264678, 8449696, 8811061, 4730733 ####[address] [place] [address] Monocytes/Leukocytes Auto (Bld) [Pure # fraction] 0.8 E9/L Normal 0.2-1.0 [facility] Comment on above: Order Comment: Order Added by Discern Expert. Performed By: #### 2 256622, 25147473, 8732394, 6131202, 66289384, 60652864, 382278356, 4787271, 6200774, 06760611, 9355269, 5448785, 110203000, 68367780, 0841821, 7291920, 3276395, 8536971 ####[facility] [address] [place] [address] Neutrophils/100 WBC (Bld) 66.7 % Normal 36.0-75.0 [facility] Comment on above: Order Comment: Order Added by Discern Expert. Performed By: #### 2 391290, 53513316, 0974702, 6984936, 19883516, 06210631, 000301918, 6306344, 0592382, 50515731, 5200738, 3945964, 625942007, 80063442, 4913797, 3071350, 0968124, 6016236 ####[facility] [address] [place] [address] Neutrophils/Leukocyte s Auto (Bld) [Pure # fraction] 6.8 E9/L Normal 2.0-7.5 [facility] Comment on above: Order Comment: Order Added by Discern Expert. Performed By: #### 2 020241, 37837896, 6574431, 2141008, 01989158, 99108682, 816129700, 5702411, 8095950, 52664412, 5059224, 5433753, 393883837, 00391872, 6483935, 3625479, 7949590, 0417211 ####[facility] [address] [place] [address] CBC w/ Auto Diffon 3 Erythrocyte distribution width (RBC) [Ratio] 16.0 % High 10.9-14.2 [facility] Comment on above: Performed By: #### 2 535669, 69736421, 0402993, 1603363, 38325907, 70954153, 951795660, 4949969, 4640337, 37245182, 4139190, 9851690, 927399841, 37314823, 2102408, 8509224, 9371861, 8507199 ####[facility] [address] [place] [address] Hematocrit (Bld) [Volume fraction] 37.1 % Normal 34.0-46.0 [facility] Comment on above: Performed By: #### 2 896005, 42030942, 7193004, 8520763, 80432229, 25137626, 017661546, 6090548, 9950457, 99840846, 6046524, 3033012, 974702280, 84351795, 9754431, 8153478, 8066550, 1169098 ####[address] [place] [address] Hemoglobin (Bld) [Mass/Vol] 12.6 g/dL Normal 12.0-16.0 [facility] Comment on above: Performed By: #### 2 038537, 08522130, 1377234, 2390815, 87457580, 13228903, 414860832, 7611527, 2050034, 75611509, 1148545, 2698667, 205893364, 30187913, 4019662, 3709023, 3880614, 2277684 ####[address] [place] [address] MCH (RBC) [Entitic mass] 31.2 pg Normal 27.0-34.0 [facility] Comment on above: Performed By: #### 2 387636, 55950910, 2825900, 5182100, 60553773, 74843480, 954344040, 0107075, 5222917, 54730949, 5936655, 1120220, 449705812, 46803659, 3706183, 7141677, 9773447, 4377369 ####[address] [place] [address] MCHC (RBC) [Mass/Vol] 33.9 g/dL Normal 31.4-36.0 [facility] Comment on above: Performed By: #### 2 486333, 54164254, 1481436, 8591004, 13483629, 55569482, 290494149, 3357040, 0861026, 60437314, 8466340, 2224637, 070145515, 26881933, 8192662, 3410508, 8177085, 9316295 ####[address] [address] MCV (RBC) [Entitic vol] 92.0 fL Normal 80.0-100.0 [facility] Comment on above: Performed By: #### 2 149419, 18585817, 8402275, 2699293, 98141151, 09008289, 188065962, 8550444, 8622372, 09213816, 0568806, 3847036, 459981792, 60998684, 5326058, 8527865, 8201461, 1769242 ####[address] [address] Platelet mean volume (Bld) [Entitic vol] 9.8 fL Normal 6.4-10.8 [facility] Comment on above: Performed By: #### 2 332565, 94977854, 8630264, 2804529, 52980837, 41477451, 943097828, 4632344, 7055818, 24183195, 4396750, 4247228, 817593138, 44905906, 9143955, 6667255, 2479029, 8539299 ####[address] [address] Platelets (Bld) [#/Vol] 369.0 E9/L Normal 150.0-500.0 [facility] Comment on above: Performed By: #### 2 549025, 40533020, 4407032, 6300478, 88736242, 30469143, 234806854, 6465875, 1399571, 30913933, 8320489, 3230307, 237582475, 99051090, 3249587, 6969708, 0427555, 5729155 ####[facility] [address] [place] [address] RBC (Bld) [#/Vol] 4.0 E12/L Low 4.3-5.9 [facility] Comment on above: Performed By: #### 2 024353, 13422054, 9183936, 1846228, 12066558, 06528922, 943287542, 5445444, 3875348, 85991849, 2209143, 7443789, 970813260, 72970122, 3220503, 7762680, 8373485, 8495518 ####[facility] [address] [place] [address] WBC corrected for nucl RBC Auto (Bld) [#/Vol] 10.1 E9/L Normal 4.0-11.0 [facility] Comment on above: Performed By: #### 2 591026, 17906002, 5661952, 7279129, 55362976, 71971772, 915698691, 3778469, 4301225, 05975429, 8610756, 0834289, 226561079, 43846919, 9456021, 9129988, 7031778, 7414153 ####[facility] [address] [place] [address] CHEMISTRYOrdered By: SYSTEM SYSTEM on 03-19-2023 25-hydroxyvitamin [...] [Mass fraction] 5.8 % Normal <=5.9% [facility] ChemAutoSS CMPon 03-19-2023 Albumin [Mass/Vol] 4.0 g/dL Normal 3.3-5.0 [facility] Comment on above: Performed By: #### 2 279974, 43759231, 2699803, 1538934, 33435871, 33623044, 452794893, 0183515, 8118925, 05221080, 6210796, 0746857, 281930733, 04550928, 0947528, 8397680, 1653809, 9431232 ####[address] [place] [address] Albumin/Globulin (S) [Mass conc ratio] 1.2 Normal 1.1-2.2 [facility] Comment on above: Performed By: #### 2 391559, 32881867, 9869441, 6432187, 80149689, 60160566, 934774410, 0670893, 0209980, 98214935, 2886804, 9854675, 375548719, 28703542, 7948263, 5788246, 4184528, 3563527 ####[facility] [address] [place] [address] ALP [Catalytic activity/Vol] 61 Int._Unit/L Normal 21-98 [facility] Comment on above: Performed By: #### 2 123316, 02824500, 6476770, 1913231, 32829714, 68287999, 457879055, 1733513, 1679917, 87547298, 5799751, 3611501, 025528696, 72479197, 2848825, 3771683, 5674579, 6452997 ####[facility] [address] [place] [address] ALT No additional P-5'-P [Catalytic activity/Vol] 17 Int._Unit/L Normal 6-46 [facility] Comment on above: Performed By: #### 2 452068, 12713757, 1206518, 7650764, 19910629, 71936366, 106705729, 9419836, 6251865, 36666950, 3542858, 5099362, 913122521, 92286568, 6535607, 8836744, 3651711, 8224502 ####[facility] [address] [place] [address] Anion gap [Moles/Vol] 9 mmol/L Normal 6-16 [facility] Comment on above: Performed By: #### 2 606596, 36120218, 9931842, 2517629, 96318964, 04512043, 916368268, 3742509, 2321307, 44992930, 7293725, 9910362, 850973546, 72899857, 5137341, 5592410, 7526762, 6303807 ####[facility] [address] [place] [address] AST [Catalytic activity/Vol] 20 Int._Unit/L Normal 5-43 [facility] Comment on above: Performed By: #### 2 575591, 36800898, 8755666, 2918426, 96226157, 80210477, 060353798, 5408104, 4178543, 68537205, 0187140, 6898138, 158077508, 64974437, 7726291, 8691270, 8666159, 9784936 ####[facility] [address] [place] [address] Bilirubin [Mass/Vol] 0.4 mg/dL Normal 0.0-1.1 [facility] Comment on above: Performed By: #### 2 477845, 36481534, 5002278, 6603341, 74589825, 82756983, 266425775, 2736794, 3642234, 85899266, 8479797, 1278992, 106132275, 74766890, 4133971, 6961983, 4672603, 4164205 ####[facility] [address] [place] [address] Calcium [Mass/Vol] 9.2 mg/dL Normal 8.9-11.1 [facility] Comment on above: Performed By: #### 2 334258, 73267171, 4548786, 4571000, 02074422, 20807295, 365478596, 4707783, 3138018, 45572223, 1254140, 1973945, 295213391, 55608527, 5183462, 1029331, 6314675, 7597545 ####[facility] [address] [place] [address] Chloride [Moles/Vol] 113 mmol/L High 101-111 [facility] Comment on above: Performed By: #### 2 371990, 49839265, 6586916, 9624427, 11570493, 60299640, 141538806, 2024340, 7295669, 76340262, 6174045, 2595017, 622999210, 36000770, 4261814, 8025454, 2048676, 9950478 ####[facility] [address] [place] [address] CO2 [Moles/Vol] 22 mmol/L Normal 21-31 [facility] Comment on above: Performed By: #### 2 991815, 49486575, 8251954, 6778328, 60708707, 24295409, 965213292, 7443640, 5167819, 45360651, 1791307, 4822491, 178623562, 32077064, 5733140, 3438996, 8810349, 1094197 ####[address] [place] [address] Creatinine [Mass/Vol] 0.7 mg/dL Normal 0.5-1.3 [facility] Comment on above: Performed By: #### 2 274526, 60994255, 6916667, 9364761, 44658215, 62818606, 036178903, 6583436, 0228581, 87564347, 8239370, 4898441, 290864724, 09076379, 2090145, 3960902, 1794705, 9932047 ####[facility] [address] [place] [address] Globulin (S) [Mass/Vol] 3.2 g/dL Normal 1.4-4.0 [facility] Comment on above: Performed By: #### 2 607974, 19731818, 8288513, 4669596, 20892409, 47589738, 349394733, 9904187, 5580684, 87948635, 6281175, 1047448, 185548512, 13286573, 8470954, 3263630, 5966359, 7807988 ####[facility] [address] [place] [address] Glucose [Mass/Vol] 103 mg/dL Normal 55-199 [facility] Comment on above: Result Comment: If t his glucose result represents a fasting glucose, interpretation should refer to the following reference range: 55-99 mg/dL Performed By: #### 2 550655, 85898822, 3651786, 5957830, 85495204, 44187016, 222374946, 1714839, 9722737, 01756741, 0734645, 2235014, 907248018, 98929877, 9326429, 4430725, 8537246, 8876376 ####[facility] [address] [place] [address] Potassium [Moles/Vol] 3.8 mmol/L Normal 3.5-5.3 [facility] Comment on above: Performed By: #### 2 321909, 56393086, 2939875, 8406067, 12157492, 69669911, 167164562, 5973427, 7257301, 21405577, 6202510, 4877499, 701827352, 99446953, 3850876, 0274687, 9865012, 3829718 ####[facility] [address] [place] [address] Protein [Mass/Vol] 7.2 g/dL Normal 6.0-7.8 [facility] [facility] Comment on above: Performed By: #### 2 869644, 04573414, 9774742, 8606901, 64056464, 93147081, 459705818, 6284303, 1674505, 45376050, 7460600, 2829300, 162864247, 01012035, 1906834, 4499924, 2775063, 2599218 ####[facility] [address] [place] [address] Sodium [Moles/Vol] 140 mmol/L Normal 135-145 [facility] Comment on above: Performed By: #### 2 197362, 36895567, 0824359, 8291753, 83514524, 94808070, 101546198, 3565721, 2412474, 64426171, 0374056, 6495940, 017300143, 39093628, 5650176, 2482245, 5762050, 2169712 ####[facility] [address] [place] [address] Urea nitrogen [Mass/Vol] 12 mg/dL Normal 5-21 [facility] Comment on above: Performed By: #### 2 654229, 96797790, 6670148, 7279461, 77455400, 71337889, 478588866, 3969735, 6107112, 99692272, 4707283, 2700158, 728525395, 23739626, 9366787, 0040085, 6827187, 1822634 ####[facility] [address] [place] [address] Urea nitrogen/Creatinine [Mass ratio] 17 No Units Normal 10-20 [facility] Comment on above: Performed By: #### 2 512316, 99213399, 3211146, 6990928, 89409660, 52765118, 692452378, 7755711, 3012635, 38045069, 6631175, 5353532, 930259360, 61833537, 7384540, 6481591, 4837948, 5497073 ####[facility] [address] [place] [address] Consent for Treatmenton Consent for Treatment [id number]: 127 Normal [facility] Ferritinon - Ferritin [Mass/Vol] 6 ng/mL Low 11-307 [facility] Comment on above: Result Comment: NORM ALS MEN <30 YRS 16-132 ng/mL MEN >30 YRS 8-338 ng/mL WOMEN (PREMEN) 6-104 ng/mL WOMEN (POSTMEN) 12-210 ng/mL Performed By: #### 2 997228, 91425144, 0618102, 9692281, 62874662, 54693757, 673030327, 8448538, 9998887, 35601193, 9022634, 9436972, 980047354, 48419155, 2294491, 6558230, 5039232, 6333584 ####[facility] [address] [place] [address] Folateon 03-19-2023 Folate [Mass/Vol] 15.6 ng/mL Normal >=6.7 [facility] Comment on above: Performed By: #### 2 564633, 75250977, 3568566, 9276421, 44869473, 95337561, 242547534, 3985992, 5129610, 93205543, 6415580, 0375203, 097722421, 93015189, 4279144, 4084405, 3724822, 1686096 ####[facility] [address] [place] [address] Free T4on 03-19-2023 Free T4 [Mass/Vol] 0.88 ng/dL Normal 0.58-1.64 [facility] Comment on above: Performed By: #### 2 569268, 04112556, 0568459, 8702240, 87711363, 32334994, 623380287, 9371545, 3455809, 39872789, 8528217, 6199824, 037605971, 99755645, 5330125, 4975093, 9485721, 5022185 ####[facility] [address] [place] [address] HEMATOLOGYOrdered By: SYSTEM SYSTEM on 03-19-2023 Basophils/100 [...] 10.1 E9/L Normal 4.0 - 11.0 E9/L [facility] HemeAutoSS OztO9hgf 03-19-2023 HbA1c (Bld) [Mass fraction] 5.8 % Normal <=5.9 [facility] Comment on above: Performed By: #### 2 774319, 35827479, 6064859, 3997573, 08612364, 86869719, 622465902, 1793642, 3475928, 65301497, 5852416, 3397348, 546711156, 92641989, 4499743, 1513769, 8297915, 3225062 ####[facility] [address] [place] [address] Ironon 03-19-2023 Iron [Mass/Vol] 69 microgram/dL Normal 35-153 [facility] Comment on above: Performed By: #### 2 523139, 98385937, 9968433, 6760001, 31610523, 54889951, 834760016, 3775093, 5118485, 38479357, 4695492, 8604775, 542920765, 30227530, 5625265, 1794447, 1641712, 3672477 ####[facility] [address] [place] [address] Lipid Panelon 03-19-2023 Cholesterol [Mass/Vol] 167 mg/dL Normal 120-200 [facility] Comment on above: Performed By: #### 2 248636, 29650639, 7155106, 9251057, 62880297, 79432538, 040396395, 0034480, 1892944, 61224352, 6317760, 6488242, 477222009, 79032344, 6324521, 0786614, 9096389, 0084352 ####[facility] [address] [place] [address] Cholesterol in HDL [Mass/Vol] 72 mg/dL Invalid Interpretation Code [facility] Comment on above: Result Comment: HDL > or equal to 60 mg/dL: Low cardiovascular risk HDL < 40 mg/dL : High cardiovascular risk Performed By: #### 2 382114, 56711629, 5933575, 7791274, 76918234, 72607969, 105067730, 3035423, 0219196, 17097845, 9441946, 9515918, 932940586, 69687649, 4157476, 1149220, 1125544, 5206450 ####[facility] [address] [place] [address] Cholesterol in LDL [Mass/Vol] 72 mg/dL Normal <=129 [facility] Comment on above: Performed By: #### 2 027874, 15073690, 6753273, 8647760, 31916061, 59047965, 770889755, 5330326, 0205779, 61878690, 6434070, 6801603, 294605443, 63235454, 6325269, 1738918, 0110874, 9850858 ####[facility] [address] [place] [address] Cholesterol in VLDL [Mass/Vol] 14 mg/dL Normal 7-40 [facility] Comment on above: Performed By: #### 2 114562, 00274092, 9249949, 5607427, 13160592, 39782891, 321330520, 6319892, 2894530, 97539183, 5884286, 2406228, 255780071, 66052912, 3700228, 2436606, 4260014, 9006567 ####[facility] [address] [place] [address] Triglyceride [Mass/Vol] 69 mg/dL Normal <=149 [facility] Comment on above: Performed By: #### 2 675382, 62101476, 2739734, 1455590, 88219682, 03213478, 313625651, 2540320, 4760960, 23599574, 0644210, 7777918, 432601749, 25023880, 8038107, 7259576, 5757778, 8467846 ####[facility] [address] [place] [address] Magnesiumon 03-19-2023 Magnesium [Mass/Vol] 2.0 mg/dL Normal 1.3-2.4 [facility] Comment on above: Performed By: #### 2 777887, 20853854, 7833454, 5112690, 91934825, 26049871, 461920968, 1877948, 3620770, 29797100, 2617946, 0240073, 340496657, 18934518, 5679018, 2571921, 7940897, 5823484 ####[facility] [address] [place] [address] Physician Orderon 03-19-2023 Physician Order [id number] :127 Normal [facility] TIBC Calculatedon 03-19-2023 Iron binding capacity [Mass/Vol] 423 microgram/dL High 250-400 [facility] Comment on above: Performed By: #### 2 700633, 25444829, 3153491, 2627403, 07702292, 71278306, 341998467, 7619259, 3762214, 77742216, 1815888, 1324552, 893382270, 45572796, 0711180, 8393961, 8084551, 7044857 ####[facility] [address] [place] [address] Transferrin [Mass/Vol] 302 mg/dL Normal 200-370 [facility] Comment on above: Performed By: #### 2 096282, 36729649, 8779478, 7634693, 59198878, 25146506, 646599936, 4780806, 5764409, 41299846, 3862099, 0864788, 084377066, 87602455, 6040639, 2668820, 2004292, 1376515 ####[facility] [address] [place] [address] TSHon 03-19-2023 TSH Qn 0.61 m[IU]/L Normal 0.34-5.60 [facility] Comment on above: Performed By: #### 2 185807, 97228195, 8237213, 8768021, 90823211, 25901179, 175487915, 2701144, 9567419, 44847851, 5632746, 1620336, 840857597, 54111159, 0904495, 4030827, 5441941, 1836814 ####[facility] [address] [place] [address] Vit B12on 03-19-2023 Cobalamin (Vitamin B12) [Mass/Vol] 357 pg/mL Normal 50-1500 [facility] Comment on above: Performed By: #### 2 676864, 07949575, 0905774, 9997301, 00375199, 62978037, 224750777, 7796634, 3473315, 37220197, 3158233, 3620457, 940597272, 58709513, 5388815, 0434630, 3874841, 5394687 ####[facility] [address] [place] [address] Vitamin D 25 Hydroxyon 03-19 25-hydroxyvitamin D3 [Mass/Vol] 43.1 ng/mL Normal 30.0-100.0 [facility] Comment on above: Result Comment: Vit alberto D deficiency has been defined as a level of serum 25-OH vitamin D less than 20 ng/mL (1,2) by the [place] [employer] and an Endocrine Society practice guideline. The Endocrine Society further defined vitamin D insufficiency as a level between 21 and 29 ng/mL (2). 1. IOM ([place] [employer]). 2010. Dietary reference intakes for calcium and D. [place]: The National Academies Press. 2. Willard MF, Luisa NC, Nestor MALDONADO, et al. Evaluation, treatment, and prevention of vitamin D deficiency: an Endocrine Society clinical practice guideline. JCEM. 2010; 96 (7):1911-30. Performed By: #### 2 666430, 62042896, 9391887, 3841226, 82259419, 78818472, 907565241, 4446720, 7475544, 32096843, 3235443, 3676971, 444926261, 33504804, 9122407, 1210518, 7763904, 1630103 ####[facility] [address] [place] [address] eGFRon 03-19-2023 GFR/1.73 sq M.predicted among non-blacks MDRD (S/P/Bld) [Vol rate/Area] 116 mL/min/1.73 m2 Normal >=59 [facility] Comment on above: Order Comment: Order added by Discern Expert. Result Comment: Park Recreation Manager gurpreet kidney disease could be indicated at eGFR's of less than 60 mL/min/1.73m2. Kidney failure is indicated at less than 15 mL/min/1.73m2. Performed By: #### 2 650384, 41181199, 0346766, 4124233, 48412060, 86029059, 430576897, 9675865, 8870469, 39939195, 1389504, 9560155, 445650287, 70548385, 7014448, 7458717, 3116383, 3900571 ####[facility] [address] [place] [address] MRA Head veins WO and W cont rast Ramón 01-29-2023 IMPRESSION: Unremarkable MRV head with and without contrast. Carbon Furnace Operator: PSCB Transcribe Date/Time: Jan 29 2023 2:40P Dictated by : JENNIFER RUVALCABA MD This examination was interpreted and the report reviewed and electronically signed by: JENNIFER RUVALCABA MD on Jan 29 2023 2:44PM [facility] DIVISION OF RADIOLOGY * * *Final Report* * * DATE OF EXAM: Jan 29 2023 1:10PM LN 0336 - MRV BRAIN WO/W IVCON / PROCEDURE REASON: Idiopathic intracranial hypertension * * * * Physician Interpretation * * * * EXAMINATION: MRV BRAIN WO/W IVCON CLINICAL HISTORY: Idiopathic intracranial hypertension. TECHNIQUE: Intracranial 2-D nimb-rb-hxepjf and postcontrast MRV with post-processing performed at the modality and 2D multiplanar and 3D maximum intensity projections were created, reviewed and archived. Contrast dose: 17 mL Dotarem administered intravenously. MQ: MRAB_4 COMPARISON: None. RESULT: INTRACRANIAL MRV: There is no evidence of significant narrowing, occlusion, or thrombosis of the dural venous sinuses. Note is made of a partially empty sella. DIVISION OF RADIOLOGY Provider, [facility] - 01/29/2023 * * *Final Report* * * DATE OF EXAM: Jan 29 2023 1:10PM [facility] 0336 - MRV BRAIN WO/W IVCON / PROCEDURE REASON: Idiopathic intracranial hypertension * * * * Physician Interpretation * * * * EXAMINATION: MRV BRAIN WO/W IVCON CLINICAL HISTORY: Idiopathic intracranial hypertension. TECHNIQUE: Intracranial 2-D ejyb-az-nxmczm and postcontrast MRV with post-processing performed at [...] Unremarkable MRV head with and without contrast. Carbon Furnace Operator: [facility] Transcribe Date/Time: Jan 29 2023 2:40P Dictated by : JENNIFER RUVALCABA MD This examination was interpreted and the report reviewed and electronically signed by: JENNIFER RUVALCABA MD on Jan 29 2023 2:44PM EST [facility] Radiology Study observation (narrative) [facility] MRA Head veins WO and W cont rast IVOrdered By: Ccf Provider on 01-29-2023 [facility] CHEMISTRYOrdered By: SYSTEM SYSTEM on 01-15-2023 [...] mL/min/1.73 m2 Normal >=59mL/min/1 .73 m2 [facility] Chem S Globulin (S) [Mass/Vol] [...] Ql Negative (01/15/23 11:31 AM) Normal [facility] Man Sero URINALYSISOrdered By: Jacki santana on [...] PM) Normal Negative [facility] UA Auto SS [place].plasma/Lithiu m.RBC (Bld) [Mass ratio] 0-3 /HPF Normal [...] Desc Clean Catch (01/15/23 12:51 PM) Normal [facility] UA Auto SS Urobilinogen Qn (U) 0.9468226 {Lucila'U}/dL Normal 0.0 - 1.0 EU/dL [facility] UA Auto SS WBC Auto Ql (U) 1+ *ABN* (01/15/23 12:51 PM) Invalid Interpretation Code Negative [facility] UA Auto SS WBC LM.HPF (Urine sed) [#/Area] 0-5 /HPF Normal 0-5/HPF [facility] UA Auto SS BLOOD BANKOrdered By: Myrna Contreras on 12-05-2022 ABO/Rh Interp Negative Invalid Interpretation Code [facility] BB Subsection ABSC Gel Interp Negative (12/05/22 7:24 AM) Normal [facility] BB Subsection URINALYSISOrdered By: Kimberli [...] AM) Normal Negative [facility] UA Auto SS [place].plasma/Lithiu m.RBC (Bld) [Mass ratio] 0-3 /HPF Normal 0-3/HPF [facility] UA Auto SS Nitrite Ql (U) Negative (12/05/22 10:05 AM) Normal Negative [facility] UA Auto SS pH (U) 6.5 *NA* (12/05/22 10:05 AM) Invalid Interpretation Code 5.0 - 9.0 [facility] UA Auto SS Protein (U) [Mass/Vol] Negative (12/05/22 10:05 AM) Normal Negative [facility] UA Auto SS Specific gravity (U) [Rel density] 1.015 *NA* (12/05/22 10:05 AM) Invalid Interpretation Code 1.005 - 1.030 [facility] UA Auto SS UA Spec Desc Catheter (12/05/22 10:05 AM) Normal [facility] UA Auto SS Urobilinogen Qn (U) 1.5966110 {Lucila'U}/dL Normal 0.0 - 1.0 EU/dL [facility] UA Auto SS WBC Auto Ql (U) Negative (12/05/22 10:05 AM) Normal Negative [facility] UA Auto SS WBC LM.HPF (Urine sed) [#/Area] 0-5 /HPF Normal 0-5/HPF [facility] UA Auto SS CHEMISTRYOrdered By: [...] mL/min/1.73 m2 Normal >=59mL/min/1 .73 m2 [facility] Chem S Potassium [Moles/Vol] 3.6 [...] Office Visit ([facility]AD[facility] ) -------- SHAZIA CHOU ([id number]) 1990 F Date Time Provider Department 11/20/22 8:00 AM EILEEN MANZANO During your visit today, we recorded the following information about you: Pulse Blood pressure Weight Height 67/minute 137/81 85.7 kg 1.702 m Last Period 10/23/22 Eileen Manzano MD 11/20/2022 10:33 AM Signed [facility] New Patient Evaluation [...] due to congenital deformity, seen in the [facility] for: Idiopathic intracranial [...] her eyes. She has never seen an manager discovery. CSF protein 24, Glu 55, Pro 28, [...] due to congenital deformity, seen in the [facility] for: 1. Idiopathic [...] she agreed. She needs to follow with manager discovery every 6 months. In some patients with intracranial hypertension, there might be a concurrent transverse sinus stenosis and transverse sinus stenting may resolve the symptoms. I will do MRV. --HTN --H depression --Headache: there are a (more content not included)... Normal [facility] CBC AUTO DIFFon 10-30-2022 BASO # 0.0 103/ul Normal 0.0-0.1 [facility] Comment on above: Performed By: #### C JENNIE PATRICK LIPA #### [facility] [address] [address] [address] Manuel Sandhu Basophils/100 WBC (Bld) 0.5 % Normal 0.2-2.0 [facility] Comment on above: Performed By: #### C JENNIE PATRICK LIPA #### [facility] [address] [address] [address] Manuel Sandhu EO # 0.1 103/ul Normal 0.0-0.7 [facility] Comment on above: Performed By: #### C JENNIE PATRICK LIPA #### [facility] [address] [address] [address] Manuel Sandhu Eosinophils/100 WBC (Bld) 1.6 % Normal 0.9-7.0 [facility] Comment on above: Performed By: #### C JENNIE PATRICK LIPA #### [facility] [address] [address] [address] Manuel Sandhu Erythrocyte distribution width (RBC) [Ratio] 13.8 % Normal 11.0-15.0 [facility] Comment on above: Performed By: #### C JENNIE PATRICK LIPA #### [facility] [address] [address] [address] Manuel Sandhu Hematocrit (Bld) [Volume fraction] 38.7 % Normal 36.0-48.0 [facility] Comment on above: Performed By: #### C JENNIE PATRICK LIPA #### [facility] [address] [place] [address] Dr. Manuel Sandhu Hemoglobin (Bld) [Mass/Vol] 12.9 g/dL Normal 12.0-16.0 [facility] Comment on above: Performed By: #### C JENNIE PATRICK LIPA #### [facility] [address] [place] [address] Dr. Manuel Sandhu IG # 0.03 10e3/ul Normal 0.00-0.03 [facility] Comment on above: Performed By: #### C JENNIE PATRICK LIPA #### [facility] [address] [place] [address] Dr. Manuel Sandhu IG % 0.4 % Normal 0.0-0.5 [facility] Comment on above: Performed By: #### C JENNIE PATRICK LIPA #### [facility] [address] [place] [address] Dr. Manuel Sandhu LYMPH # 2.1 103/ul Normal 1.2-3.8 [facility] Comment on above: Performed By: #### C JENNIE PATRICK LIPA #### [facility] [address] [place] [address] Dr. Manuel Sandhu Lymphocytes/100 WBC (Bld) 25.1 % Normal 20.5-60.0 [facility] Comment on above: Performed By: #### C JENNIE PATRICK LIPA #### [facility] [address] [place] [address] Dr. Manuel Sandhu MANUAL DIFF REQ NO Normal [facility] Comment on above: Performed By: #### C JENNIE PATRICK LIPA #### [facility] [address] [place] [address] Dr. Manuel Sandhu MCH (RBC) [Entitic mass] 32.0 pg Normal 26.7-34.0 [facility] Comment on above: Performed By: #### C JENNIE PATRICK, LIPA #### [facility] [address] [place] [address] Dr. Manuel Sandhu MCHC (RBC) [Mass/Vol] 33.3 g/dL Normal 29.9-35.[address] [facility] Comment on above: Performed By: #### C MP, JENNIE, LIPA #### [facility] [address] [place] [address] Dr. Manuel Sandhu MCV (RBC) [Entitic vol] 96.0 fL Normal 81.0-99.[address] [facility] Comment on above: Performed By: #### C MP, JENNIE, LIPA #### [facility] [address] [place] [address] Dr. Manuel Sandhu MONO # 0.5 103/ul Normal 0.3-0.[address] [facility] Comment on above: Performed By: #### C MP, JENNIE, LIPA #### [facility] [address] [place] [address] Dr. Manuel Sandhu Monocytes/100 WBC (Bld) 5.7 % Normal 1.7-12.[address] [facility] Comment on above: Performed By: #### C MP, JENNIE, LIPA #### [facility] [address] [place] [address] Dr. Manuel Sandhu NEUT # 5.6 103/ul Normal 1.4-6.[address] [facility] Comment on above: Performed By: #### C MP, JENNIE, LIPA #### [facility] [address] [place] [address] Dr. Manuel Sandhu Neutrophils/100 WBC (Bld) 66.7 % Normal 43.0-75.[address] [facility] Comment on above: Performed By: #### C MP, JENNIE, LIPA #### [facility] [address] [place] [address] Dr. Manuel Sandhu Platelet mean volume (Bld) [Entitic vol] 10.9 fL Normal 9.5-13.[address] [facility] Comment on above: Performed By: #### C MP, JENNIE, LIPA #### [facility] [address] [place] [address] Dr. Manuel Sandhu PLT 310 103/ul Normal 150-[address] [facility] Comment on above: Performed By: #### C MP, JENNIE, LIPA #### [facility] [address] [address] [address] Manuel Sandhu RBC 4.03 106/ul Critically low 4.20-5.40 [facility] Comment on above: Performed By: #### C MP, JENNIE, LIPA #### [facility] [address] [address] [address] Manuel Sandhu WBC 8.4 103/ul Normal 4.0-11.0 [facility] Comment on above: Performed By: #### C MP, JENNIE, LIPA #### [facility] [address] [address] [address] Manuel Sandhu ER URINE PROFILEon 3 Bilirubin Ql (U) Negative Normal NEGATIVE [facility] Comment on above: Performed By: #### U MICRO, ERUR #### [facility] [address] [place] [address] Dr. Manuel Sandhu Clarity (U) CLEAR Normal CLEAR [facility] Comment on above: Performed By: #### U MICRO, ERUR #### [facility] [address] [address] [address] Manuel Sandhu Color (U) LT. YELLOW Normal YELLOW [facility] Comment on above: Performed By: #### U MICRO, ERUR #### [facility] [address] [place] [address] Dr. Manuel Sandhu ERUAHD A micrscopic examina tion will be performed if indicated. Normal The [facility] Comment on above: Performed By: #### U MICRO, ERUR #### [facility] [address] [address] [address] Manuel Sandhu Glucose Ql (U) Negative Normal NEGATIVE [facility] Comment on above: Performed By: #### U MICRO, ERUR #### [facility] [address] [address] [address] Manuel Sandhu Hemoglobin Ql (U) LARGE Abnormal NEGATIVE The [facility] Comment on above: Performed By: #### U MICRO, ERUR #### [facility] [address] [place] [address] Dr. Manuel Sandhu Ketones Ql (U) Negative Normal NEGATIVE [facility] Comment on above: Performed By: #### U MICRO, ERUR #### [facility] [address] [place] [address] Dr. Manuel Sandhu LEUKOCYTES TRACE Abnormal NEGATIVE [facility] Comment on above: Performed By: #### U MICRO, ERUR #### [facility] [address] [place] [address] Dr. Manuel Sandhu Nitrite Ql (U) Negative Normal NEGATIVE [facility] Comment on above: Performed By: #### U MICRO, ERUR #### [facility] [address] [place] [address] Dr. Manuel Sandhu pH (U) 6.5 [pH] Normal 5-9 [facility] Comment on above: Performed By: #### U MICRO, ERUR #### [facility] [address] [place] [address] Dr. Manuel Sandhu SPEC GRAVITY <=1.005 Abnormal 1.005-<=1.02 5 [facility] Comment on above: Performed By: #### U MICRO, ERUR #### [facility] [address] [place] [address] Dr. Manuel Sandhu UA PROTEIN Negative Normal NEGATIVE/ TRACE The [facility] Comment on above: Performed By: #### U MICRO, ERUR #### [facility] [address] [place] [address] Dr. Manuel Sandhu UR MICRO IND INDICATED Normal The [facility] Comment on above: Performed By: #### U MICRO, ERUR #### [facility] [address] [place] [address] Dr. Manuel Sandhu Urobilinogen Qn (U) 0.2 {Lucila'U}/dL Normal 0.2 - 1. 0 [facility] Comment on above: Performed By: #### U MICRO, ERUR #### [facility] [address] [place] [address] Dr. Manuel Sandhu PROF CHEM 8 (BAS METB)on Anion gap [Moles/Vol] 11.7 mmol/L Normal Th e [facility] Comment on above: Performed By: #### C JENNIE PATRICK LIPA #### [facility] [address] [place] [address] Dr. Manuel Sandhu Calcium [Mass/Vol] 9.1 mg/dL Normal 8.5-10.1 [facility] Comment on above: Performed By: #### C JENNIE PATRICK, LIPA #### [facility] [address] [address] [address] Manuel Sandhu Chloride [Moles/Vol] 105 mmol/L Normal 98-107 [facility] Comment on above: Performed By: #### C JENNIE PATRICK LIPA #### [facility] [address] [place] [address] Dr. Manuel Sandhu CO2 [Moles/Vol] 26.8 mmol/L Normal 21.0-32.0 [facility] Comment on above: Performed By: #### C JENNIE PATRICK LIPA #### [facility] [address] [place] [address] Dr. Manuel Sandhu Creatinine [Mass/Vol] 0.62 mg/dL Normal 0.55-1.02 [facility] Comment on above: Performed By: #### C JENNIE PATRICK LIPA #### [facility] [address] [place] [address] Dr. Manuel Sandhu EGFR-AF IRAQI >60 Normal >=60 [facility] Comment on above: Performed By: #### C JENNIE PATRICK LIPA #### [facility] [address] [place] [address] Dr. Manuel Sandhu EGFR-NON AF IRAQI >60 Normal >=60 [facility] Comment on above: Performed By: #### C JENNIE PATRICK, LIPA #### [facility] [address] [place] [address] Dr. Manuel Sandhu Glucose [Mass/Vol] 92 mg/dL Normal 74-106 [facility] Comment on above: Performed By: #### C JENNIE PATRICK, LIPA #### [facility] [address] [place] [address] Dr. Manuel Sandhu Potassium [Moles/Vol] 3.5 mmol/L Normal 3.5-5.1 [facility] Comment on above: Performed By: #### C JENNIE PATRICK LIPA #### [facility] [address] [address] [address] Manuel Sandhu Sodium [Moles/Vol] 140 mmol/L Normal 136-145 [facility] Comment on above: Performed By: #### C JENNIE PATRICK LIPA #### [facility] [address] [place] [address] Dr. Manuel Sandhu Urea nitrogen [Mass/Vol] 8.0 mg/dL Normal 7.0-18.0 [facility] Comment on above: Performed By: #### C JENNIE PATRICK LIPA #### [facility] [address] [place] [address] Dr. Manuel Sandhu Urea nitrogen/Creatinine [Mass ratio] 12.9 mg/mg Normal [facility] Comment on above: Performed By: #### C JENNIE APTRICK LIPA #### [facility] [address] [place] [address] Dr. Manuel Sandhu URINE MICROSCOPIC ONLYon BACTERIA NONE SEEN Normal NONE SEEN [facility] Comment on above: Performed By: #### U MICRO, ERUR #### [facility] [address] [place] [address] Dr. Manuel Sandhu Bacteria identified Cx Nom (U) NOT INDICATED Normal [facility] Comment on above: Performed By: #### U MICRO, ERUR #### [facility] [address] [place] [address] Dr. Manuel Sandhu CAST NONE SEEN Normal NONE SEEN [facility] Comment on above: Performed By: #### U MICRO, ERUR #### [facility] [address] [place] [address] Dr. Manuel Sandhu Crystals LM Nom (Urine sed) NONE SEEN Normal NONE SEEN [facility] Comment on above: Performed By: #### U MICRO, ERUR #### [facility] [address] [place] [address] Dr. Manuel Sandhu Epithelial cells LM Ql (Urine sed) FEW Abnormal NONE SEEN /RARE [facility] Comment on above: Performed By: #### U MICRO, ERUR #### [facility] [address] [place] [address] Dr. Manuel Sandhu MUCOUS TRACE Abnormal NONE SEEN The [facility] Comment on above: Performed By: #### U MICRO, ERUR #### [facility] [address] [place] [address] Dr. Manuel Sandhu RBC 5-10 Abnormal 0-2 [facility] Comment on above: Performed By: #### U MICRO, ERUR #### [facility] [address] [place] [address] Dr. Manuel Sandhu WBC 2-5 Abnormal NONE SEEN The [facility] Comment on above: Performed By: #### U MICRO, ERUR #### [facility] [address] [place] [address] Dr. Manuel Sandhu No Panel InformationOrdered By: Dorita Niño on 08-19-2022 CSF Glucose 55 mg/dL 40-70 [facility] CSF Total Protein 24 mg/dL 15-[address] [facility] CBC AUTO DIFFon 08-16-2022 BASO # 0.1 103/ul Normal 0.0-0.1 [facility] Comment on above: Performed By: #### U MICRO, ERUR #### [facility] [address] [place] [address] Dr. Manuel Sandhu Basophils/100 WBC (Bld) 0.4 % Normal 0.2-2.0 [facility] Comment on above: Performed By: #### U MICRO, ERUR #### [facility] [address] [place] [address] Dr. Manuel Sandhu EO # 0.2 103/ul Normal 0.0-0.[address] [facility] Comment on above: Performed By: #### U MICRO, ERUR #### [facility] [address] [place] [address] Dr. Manule Sandhu Eosinophils/100 WBC (Bld) 1.8 % Normal 0.9-7.0 [facility] Comment on above: Performed By: #### U MICRO, ERUR #### [facility] [address] [address] [address] Manuel Sandhu Erythrocyte distribution width (RBC) [Ratio] 13.6 % Normal 11.0-15.0 [facility] Comment on above: Performed By: #### U MICRO, ERUR #### [facility] [address] [place] [address] Dr. Manuel Sandhu Hematocrit (Bld) [Volume fraction] 35.8 % Critically low 36.0-48.0 [facility] Comment on above: Performed By: #### U MICRO, ERUR #### [facility] [address] [place] [address] Dr. Manuel Sandhu Hemoglobin (Bld) [Mass/Vol] 12.2 g/dL Normal 12.0-16.0 [facility] Comment on above: Performed By: #### U MICRO, ERUR #### [facility] [address] [place] [address] Dr. Manuel Sandhu IG # 0.05 10e3/ul Critically high 0.00-0.03 [facility] Comment on above: Performed By: #### U MICRO, ERUR #### [facility] [address] [place] [address] Dr. Manuel Sandhu IG % 0.4 % Normal 0.0-0.5 [facility] Comment on above: Performed By: #### U MICRO, ERUR #### [facility] [address] [place] [address] Dr. Manuel Sandhu LYMPH # 2.0 103/ul Normal 1.2-3.8 [facility] Comment on above: Performed By: #### U MICRO, ERUR #### [facility] [address] [place] [address] Dr. Manuel Sandhu Lymphocytes/100 WBC (Bld) 18.1 % Critically low 20.5-60.0 [facility] Comment on above: Performed By: #### U MICRO, ERUR #### [facility] [address] [place] [address] Dr. Manuel Sandhu MANUAL DIFF REQ NO Normal [facility] Comment on above: Performed By: #### U MICRO, ERUR #### [facility] [address] [place] [address] Dr. Manuel Sandhu MCH (RBC) [Entitic mass] 32.0 pg Normal 26.7-34.0 [facility] Comment on above: Performed By: #### U MICRO, ERUR #### [facility] [address] [place] [address] Dr. Manuel Sandhu MCHC (RBC) [Mass/Vol] 34.1 g/dL Normal 29.9-35.[address] [facility] Comment on above: Performed By: #### U MICRO, ERUR #### [facility] [address] [place] [address] Dr. Manuel Sandhu MCV (RBC) [Entitic vol] 94.0 fL Normal 81.0-99.0 [facility] Comment on above: Performed By: #### U MICRO, ERUR #### [facility] [address] [place] [address] Dr. Manuel Sandhu MONO # 0.7 103/ul Normal 0.3-0.[address] [facility] Comment on above: Performed By: #### U MICRO, ERUR #### [facility] [address] [place] [address] Dr. Manuel Sandhu Monocytes/100 WBC (Bld) 5.8 % Normal 1.7-12.0 [facility] Comment on above: Performed By: #### U MICRO, ERUR #### [facility] [address] [place] [address] Dr. Manuel Sandhu NEUT # 8.2 103/ul Critically high 1.4-6.5 [facility] Comment on above: Performed By: #### U MICRO, ERUR #### [facility] [address] [place] [address] Dr. Manuel Sandhu Neutrophils/100 WBC (Bld) 73.5 % Normal 43.0-75.[address] [facility] Comment on above: Performed By: #### U MICRO, ERUR #### [facility] [address] [place], [place] [id number] Dr. Manuel Sandhu Platelet mean volume (Bld) [Entitic vol] 11.3 fL Normal 9.5-13.[address] [facility] Comment on above: Performed By: #### U MICRO, ERUR #### [facility] [address] [address] [address] Manuel Sandhu PLT 284 103/ul Normal 150-[address] [facility] Comment on above: Performed By: #### U MICRO, ERUR #### [facility] [address] [address] [address] Manuel Sandhu RBC 3.81 106/ul Critically low 4.20-5.40 [facility] Comment on above: Performed By: #### U MICRO, ERUR #### [facility] [address] [place] [address] Dr. Manuel Sandhu WBC 11.2 103/ul Critically high 4.0-11.[address] [facility] Comment on above: Performed By: #### U MICRO, ERUR #### [facility] [address] [address] [address] Manuel Sandhu D-DIMERon 08-16-2022 D-DIMER 0.34 mg/L FEU Normal <=0.59 [facility] Comment on above: Performed By: #### U MICRO, ERUR #### [facility] [address] [place] [address] Dr. Manuel Sandhu D-DIMER COMMENTS SEE BELOW Normal [facility] Comment on above: Result Comment: Incr eases [...] Performed By: #### U MICRO, ERUR #### [facility] [address] [place] [address] Dr. Manuel Sandhu PROF CHEM 8 (BAS METB)on Anion gap [Moles/Vol] 10.6 mmol/L Normal Th [facility] Comment on above: Performed By: #### I NFLUAB #### [facility] [address] [place] [address] Dr. Manuel Sandhu Calcium [Mass/Vol] 9.2 mg/dL Normal 8.5-10.1 [facility] Comment on above: Performed By: #### I NFLUAB #### [facility] [address] [address] [address] Manuel Sandhu Chloride [Moles/Vol] 103 mmol/L Normal 98-107 [facility] Comment on above: Performed By: #### I NFLUAB #### [facility] [address] [place] [address] Dr. Manuel Sandhu CO2 [Moles/Vol] 28.4 mmol/L Normal 21.0-32.0 [facility] Comment on above: Performed By: #### I NFLUAB #### [facility] [address] [place] [address] Dr. Manuel Sandhu Creatinine [Mass/Vol] 0.61 mg/dL Normal 0.55-1.02 [facility] Comment on above: Performed By: #### I NFLUAB #### [facility] [address] [place] [address] Dr. Manuel Sandhu EGFR-AF IRAQI >60 Normal >=[address] [facility] Comment on above: Performed By: #### I NFLUAB #### [facility] [address] [place] [address] Dr. Manuel Sandhu EGFR-NON AF IRAQI >60 Normal >=[address] [facility] Comment on above: Performed By: #### I NFLUAB #### [facility] [address] [place] [address] Dr. Manuel Sandhu Glucose [Mass/Vol] 90 mg/dL Normal 74-106 [facility] Comment on above: Performed By: #### I NFLUAB #### [facility] [address] [place] [address] Dr. Manuel Sandhu Potassium [Moles/Vol] 4.0 mmol/L Normal 3.5-5.1 [facility] Comment on above: Performed By: #### I NFLUAB #### [facility] [address] [address] [address] Manuel Sandhu Sodium [Moles/Vol] 138 mmol/L Normal 136-145 [facility] Comment on above: Performed By: #### I NFLUAB #### [facility] [address] [address] [address] Manuel Sandhu Urea nitrogen [Mass/Vol] 16.0 mg/dL Normal 7.0-18.0 [facility] Comment on above: Performed By: #### I NFLUAB #### [facility] [address] [address] [address] Manuel Sandhu Urea nitrogen/Creatinine [Mass ratio] 26.2 mg/mg Normal [facility] Comment on above: Performed By: #### I NFLUAB #### [facility] [address] [address] [address] Manuel Sandhu XR CHEST 1 Von [...] YOLI FRANKS Date: 2022-08-16 14:16 Normal [address] [facility] Albumin [Mass/volume] in Ser um or PlasmaOrdered By: Sangeetha Peña on 08-12-2022 Albumin [Mass/Vol] 3.2 g/dL 3.2-5.5 [facility] Basophils Auto (Bld) [#/Vol] Ordered By: Sangeetha Peña on 08-12-2022 Basophils (Bld) [#/Vol] 0.1 10*3/uL 0.0-0.2 [facility] Basophils/100 WBC Auto (Bld) Ordered By: Sangeetha Peña on 08-12-2022 Basophils/100 WBC (Bld) 0.7 % . [facility] C reactive protein [Mass/vol ume] in Serum or PlasmaOrdered By: Sangeetha Peña on 08-12-2022 CRP [Mass/Vol] 0.5 mg/dL 0.0-1.0 [facility] Creatinine and Glomerular fi ltration rate.predicted panel (S/P/Bld)Ordered By: Sangeetha Peña on 08-12-2022 Creatinine [Mass/Vol] 0.65 mg/dL 0.44-1.03 [facility] Eosinophils Auto (Bld) [#/Vo l]Ordered By: Sangeetha Peña on 08-12-2022 Eosinophils (Bld) [#/Vol] 0.4 10*3/uL 0.0-0.45 [facility] Eosinophils/100 WBC Auto (Bl d)Ordered By: Sangeetha Peña on 08-12-2022 Eosinophils/100 WBC (Bld) 5.2 % . [facility] Erythrocyte distribution wid th Auto (RBC) [Ratio]Ordered By: Sangeetha Peña on 08-12-2022 Erythrocyte distribution width (RBC) [Ratio] 14.4 % 11.9-15.3 [facility] Erythrocyte sedimentation ra te by Photometric methodOrdered By: Dorita Niño on 08-12-2022 ESR Photometric method (Bld) [Velocity] 3 mm/hr 0-19 [facility] Estimated glomerular filtrat ion rate (GFR) non- AmericanOrdered By: Sangeetha Peña on 08-12-2022 GFR/1.73 sq M.predicted among non-blacks MDRD (S/P/Bld) [Vol rate/Area] > 60 mL/Min [facility] Folate [Mass/volume] in Seru m or PlasmaOrdered By: Lizzeth Malave on 08-12-2022 Folate [Mass/Vol] 15.3 ng/mL >5.[address] [facility] Comment on above: Folate reference ran ge: >5.9 ng/mlThe WHO technical consultation on folate and vitamin [id number] has determined that folate concentrations lessthan 4 ng/ml are considered deficient. Globulin Calc (S) [Mass/Vol] Ordered By: Sangeetha Peña on 08-12-2022 Globulin (S) [Mass/Vol] 2.4 g/dL [facility] HCG ( test) IA.rapi d Ql (U)Ordered By: Lizzeth Malave on 08-12-2022 HCG ( test) Ql (U) Negative [facility] Hematocrit Auto (Bld) [Volum e fraction]Ordered By: Sangeetha Peña on 08-12-2022 Hematocrit (Bld) [Volume fraction] 34.6 % 34.0-46.4 [facility] Hemoglobin [Mass/volume] in BloodOrdered By: Sangeetha Peña on 08-12-2022 Hemoglobin (Bld) [Mass/Vol] 11.3 g/dL 11.8-15.4 [facility] - Chemistry and C hemistry - challengeOrdered By: Lizzeth Malave on 08-12-2022 Cobalamin (Vitamin B12) [Mass/Vol] 610 pg/mL 180-914 [facility] Magnesium [Mass/Vol] 1.9 mg/dL 1.6-2.6 [facility] - Hematology and Cell countsOrdered By: Sangeetha Peña on 08-12-2022 Nucleated RBC/100 WBC (Bld) [Ratio] 0.1 % 0-0.5 [facility] Leukocytes [#/volume] in Blo od by Automated countOrdered By: Sangeetha Peña on 08-12-2022 WBC (Bld) [#/Vol] 8.3 10*3/uL 4.5-11.0 [facility] Lymphocytes Auto (Bld) [#/Vo l]Ordered By: Sangeetha Peña on 08-12-2022 Lymphocytes (Bld) [#/Vol] 2.3 10*3/uL 1.00-4.8 [facility] Lymphocytes/100 WBC Auto (Bl d)Ordered By: Sangeetha Peña on 08-12-2022 Lymphocytes/100 WBC (Bld) 27.4 % . [facility] MCH Auto (RBC) [Entitic mass ]Ordered By: Sangeetha Peña on 08-12-2022 MCH (RBC) [Entitic mass] 32.0 pg 24.7-34.3 [facility] MCHC Auto (RBC) [Mass/Vol]Or dered By: Sangeetha Peña on 08-12-2022 MCHC (RBC) [Mass/Vol] 32.8 g/dL 32.0-35.0 [facility] MCV Auto (RBC) [Entitic vol] Ordered By: Sangeetha Peña on 08-12-2022 MCV (RBC) [Entitic vol] 97.7 fL 80-100 [facility] Monocytes Auto (Bld) [#/Vol] Ordered By: Sangeetha Peña on 08-12-2022 Monocytes (Bld) [#/Vol] 0.7 10*3/uL 0.0-0.8 [facility] Monocytes/100 WBC Auto (Bld) Ordered By: Sangeetha Peña on 08-12-2022 Monocytes/100 WBC (Bld) 8.7 % . [facility] Neutrophils Auto (Bld) [#/Vo l]Ordered By: Sangeetha Peña on 08-12-2022 Neutrophils (Bld) [#/Vol] 4.8 10*3/uL 1.8-7.7 [facility] Neutrophils/100 WBC Auto (Bl d)Ordered By: Sangeetha Peña on 08-12-2022 Neutrophils/100 WBC (Bld) 58.0 % . [facility] No Panel InformationOrdered By: Sangeetha Peña on 08-12-2022 Estimated GFR () > 60 mL/Min [facility] Comment on above: GFR estimated refere nce range: According to KDOQI guidelines, <60 ml/min/1.73m2 is sufficient to diagnose a patient with chronic kidney disease. Pharmacy Creatinine Clearance (Chem 140.31 [facility] Platelet mean volume Auto (B ld) [Entitic vol]Ordered By: Sangeetha Peña on 08-12-2022 Platelet mean volume (Bld) [Entitic vol] 10.2 fL 6.3-10.7 [facility] Platelets Auto (Bld) [#/Vol] Ordered By: Sangeetha Peña on 08-12-2022 Platelets (Bld) [#/Vol] 263 10*3/uL 150-450 [facility] Protein [Mass/volume] in Ser um or PlasmaOrdered By: Sangeetha Peña on 08-12-2022 Protein [Mass/Vol] 5.6 g/dL 6.1-7.9 [facility] RBC Auto (Bld) [#/Vol]Ordere d By: Sangeetha Peña on 08-12-2022 RBC (Bld) [#/Vol] 3.54 10*6/uL 3.60-5.00 [facility] Serum or plasma alanine alberto otransferase measurement without P-5'-P (enzymatic activiOrdered By: Sangeetha Peña on 08-12-2022 ALT No additional P-5'-P [Catalytic activity/Vol] 22 U/L 1060 [facility] Serum or plasma albumin/glob ulin mass ratioOrdered By: Sangeetha Peña on 08-12-2022 Albumin/Globulin [Mass ratio] 1.3 {ratio} [facility] Serum or plasma alkaline marquez sphatase measurement (enzymatic activity/volume)Ordered By: Sangeetha Peña on 08-12-2022 ALP [Catalytic activity/Vol] 54 U/L 32-92 [facility] Serum or plasma anion gap de terminationOrdered By: Sangeetha Peña on 08-12-2022 Anion gap [Moles/Vol] 10.6 mmol/L 6.0-15.0 [facility] Serum or plasma aspartate am inotransferase measurement (enzymatic activity/volume)Ordered By: Sangeetha Peña on 08-12-2022 AST [Catalytic activity/Vol] 20 U/L 10-42 [facility] Serum or plasma calcium audie urement (mass/volume)Ordered By: Sangeetha Peña on 08-12-2022 Calcium [Mass/Vol] 8.8 mg/dL 8.2-10.2 [facility] Serum or plasma chloride nimisha surement (moles/volume)Ordered By: Sangeetha Peña on 08-12-2022 Chloride [Moles/Vol] 105 mmol/L 95-114 [facility] Serum or plasma glucose audie urement (mass/volume)Ordered By: Sangeetha Peña on 08-12-2022 Glucose [Mass/Vol] 85 mg/dL 70-100 [facility] Comment on above: ADA recommended refe rence rangeRandom Glucose Reference Range is dependent on time and content of last meal. Glucose of more than 200 mg/dL in a nonstressed, ambulatory subject supports the diagnosis of Diabetes Mellitus. Serum or plasma potassium me asurement (moles/volume)Ordered By: Sangeetha Peña on 08-12-2022 Potassium [Moles/Vol] 4.2 mmol/L 3.5-5.1 [facility] Serum or plasma sodium measu rement (moles/volume)Ordered By: Sangeetha Peña on 08-12-2022 Sodium [Moles/Vol] 140 mmol/L 136-146 [facility] Serum or plasma total biliru bin measurement (mass/volume)Ordered By: Sangeetha Peña on 08-12-2022 Bilirubin [Mass/Vol] 0.5 mg/dL 0.3-1.2 [facility] Serum or plasma total carbon dioxide measurement (moles/volume)Ordered By: Sangeetha Peña on 08-12-2022 CO2 [Moles/Vol] 28.6 mmol/L 22.0-30.0 [facility] Serum or plasma urea nitroge n measurement (mass/volume)Ordered By: Sangeetha Peña on 08-12-2022 Urea nitrogen [Mass/Vol] 7 mg/dL 9-23 [facility] TSH DL <= 0.005 mIU/L QnOrde red By: Lizzeth Malave on 08-12-2022 TSH Qn 1.79 m[IU]/L 0.45-5.33 [facility] Troponin I.cardiac [Mass/vol ume] in Serum or Plasma by High sensitivity methodOrdered By: Lizzeth Malave on 08-12-2022 Troponin I.cardiac High sensitivity method [Mass/Vol] < 3 pg/mL 0-15 [facility] CBC AUTO DIFFon 08-11-2022 BASO # 0.1 103/ul Normal 0.0-0.[address] [facility] Comment on above: Performed By: #### C MP, JENNIE, LIPA #### [facility] [address] [place] [address] Dr. Manuel Sandhu Basophils/100 WBC (Bld) 0.5 % Normal 0.2-2.0 [facility] Comment on above: Performed By: #### C MP, JENNIE, LIPA #### [facility] [address] [place] [address] Dr. Manuel Sandhu EO # 0.4 103/ul Normal 0.0-0.7 [facility] Comment on above: Performed By: #### C MP JENNIE, LIPA #### [facility] [address] [place] [address] Dr. Manuel Sandhu Eosinophils/100 WBC (Bld) 2.4 % Normal 0.9-7.0 [facility] Comment on above: Performed By: #### C CELINA JENNIE, LIPA #### [facility] [address] [place] [address] Dr. Manuel Sandhu Erythrocyte distribution width (RBC) [Ratio] 14.1 % Normal 11.0-15.0 [facility] Comment on above: Performed By: #### C JENNIE PATRICK LIPA #### [facility] [address] [place] [address] Dr. Manuel Sandhu Hematocrit (Bld) [Volume fraction] 39.4 % Normal 36.0-48.0 [facility] Comment on above: Performed By: #### C CELINA JENNIE, LIPA #### [facility] [address] [place] [address] Dr. Manuel Sandhu Hemoglobin (Bld) [Mass/Vol] 13.3 g/dL Normal 12.0-16.0 [facility] Comment on above: Performed By: #### C CELINA JENNIE, LIPA #### [facility] [address] [place] [address] Dr. Manuel Sandhu IG # 0.07 10e3/ul Critically high 0.00-0.03 [facility] Comment on above: Performed By: #### C CELINA JENNIE, LIPA #### [facility] [address] [place] [address] Dr. Manuel Sandhu IG % 0.5 % Normal 0.0-0.[address] [facility] Comment on above: Performed By: #### C JENNIE PATRICK LIPA #### [facility] [address] [place] [address] Dr. Manuel Sandhu LYMPH # 3.6 103/ul Normal 1.2-3.[address] [facility] Comment on above: Performed By: #### C JENNIE PATRICK LIPA #### [facility] [address] [place] [address] Dr. Manuel Sandhu Lymphocytes/100 WBC (Bld) 23.5 % Normal 20.5-60.0 [facility] Comment on above: Performed By: #### C JENNIE PATRICK LIPA #### [facility] [address] [place] [address] Dr. Manuel Sandhu MANUAL DIFF REQ NO Normal [facility] Comment on above: Performed By: #### C JENNIE PATRICK LIPA #### [facility] [address] [place] [address] Dr. Manuel Sandhu MCH (RBC) [Entitic mass] 32.1 pg Normal 26.7-34.0 [facility] Comment on above: Performed By: #### C JENNIE PATRICK LIPA #### [facility] [address] [place] [address] Dr. Manuel Sandhu MCHC (RBC) [Mass/Vol] 33.8 g/dL Normal 29.9-35.2 [facility] Comment on above: Performed By: #### C JENNIE PATRICK LIPA #### [facility] [address] [place] [address] Dr. Manuel Sandhu MCV (RBC) [Entitic vol] 95.2 fL Normal 81.0-99.[address] [facility] Comment on above: Performed By: #### C JENNIE PATRICK LIPA #### [facility] [address] [place] [address] Dr. Manuel Sandhu MONO # 0.9 103/ul Critically high 0.3-0.8 The [facility] Comment on above: Performed By: #### C JENNIE PATRICK LIPA #### [facility] [address] [address] [address] Manuel Sandhu Monocytes/100 WBC (Bld) 5.8 % Normal 1.7-12.0 [facility] Comment on above: Performed By: #### C MP, JENNIE, LIPA #### [facility] [address] [place] [address] Dr. Manuel Sandhu NEUT # 10.3 103/ul Critically high 1.4-6.5 [facility] Comment on above: Performed By: #### C MP, JENNIE, LIPA #### [facility] [address] [place] [address] Dr. Manuel Sandhu Neutrophils/100 WBC (Bld) 67.3 % Normal 43.0-75.0 [facility] Comment on above: Performed By: #### C CELINA JENNIE, LIPA #### [facility] [address] [place] [address] Dr. Manuel Sandhu Platelet mean volume (Bld) [Entitic vol] 11.4 fL Normal 9.5-13.5 [facility] Comment on above: Performed By: #### C MP JENNIE, LIPA #### [facility] [address] [place] [address] Dr. Manuel Sandhu PLT 364 103/ul Normal 150-[address] [facility] Comment on above: Performed By: #### C MP, JENNIE, LIPA #### [facility] [address] [place] [address] Dr. Manuel Sandhu RBC 4.14 106/ul Critically low 4.20-5.40 The [facility] Comment on above: Performed By: #### C MP, JENNIE, LIPA #### [facility] [address] [place] [address] Dr. Manuel Sandhu WBC 15.3 103/ul Critically high 4.0-11.[address] [facility] Comment on above: Performed By: #### C MP, JENNIE, LIPA #### [facility] [address] [place] [address] STROKE HEAD WOon [...] YOLI MCKEON Date: 2022-08-11 15:21 Normal [address] [facility] ER URINE PROFILEon 2 Bilirubin Ql (U) Negative Normal NEGATIVE The [facility] Comment on above: Performed By: #### U MICRO, ERUR #### [facility] [address] [place] [address] Dr. Manuel Sandhu Clarity (U) CLEAR Normal CLEAR The [facility] Comment on above: Performed By: #### U MICRO, ERUR #### [facility] [address] [address] [address] Manuel Sandhu Color (U) LT. YELLOW Normal YELLOW The [facility] Comment on above: Performed By: #### U MICRO, ERUR #### [facility] [address] [place] [address] Dr. Manuel Sandhu ERUGRAHAM A micrscopic examina tion will be performed if indicated. Normal The [facility] Comment on above: Performed By: #### U MICRO, ERUR #### [facility] [address] [place] [address] Dr. Manuel Sandhu Glucose Ql (U) Negative Normal NEGATIVE [facility] Comment on above: Performed By: #### U MICRO, ERUR #### [facility] [address] [address] [address] Manuel Sandhu Hemoglobin Ql (U) Negative Normal NEGATIVE [facility] Comment on above: Performed By: #### U MICRO, ERUR #### [facility] [address] [address] [address] Manuel Sandhu Ketones Ql (U) Negative Normal NEGATIVE [facility] Comment on above: Performed By: #### U MICRO, ERUR #### [facility] [address] [address] [address] Manuel Sandhu LEUKOCYTES Negative Normal NEGATIVE [facility] Comment on above: Performed By: #### U MICRO, ERUR #### [facility] [address] [place] [address] Dr. Manuel Sandhu Nitrite Ql (U) Negative Normal NEGATIVE [facility] Comment on above: Performed By: #### U MICRO, ERUR #### [facility] [address] [place] [address] Dr. Manuel Sandhu pH (U) 7.0 [pH] Normal 5-9 [facility] Comment on above: Performed By: #### U MICRO, ERUR #### [facility] [address] [place] [address] Dr. Manuel Sandhu SPEC GRAVITY <=1.005 Abnormal 1.005-<=1.02 5 [facility] Comment on above: Performed By: #### U MICRO, ERUR #### [facility] [address] [address] [address] Manuel Sandhu UA PROTEIN Negative Normal NEGATIVE/ TRACE The [facility] Comment on above: Performed By: #### U MICRO, ERUR #### [facility] [address] [address] [address] Manuel Sandhu UR MICRO IND NOT INDICATED Normal The [facility] Comment on above: Performed By: #### U MICRO, ERUR #### [facility] [address] [address] [address] Manuel Sandhu Urobilinogen Qn (U) 0.2 {Lucila'U}/dL Normal 0.2 - 1. 0 [facility] Comment on above: Performed By: #### U MICRO, ERUR #### [facility] [address] [place] [address] Dr. Manuel Sandhu LACTATE/LACTIC ACIDon 2021 Lactate [Moles/Vol] 1.5 mmol/L Normal 0.4-1.9 [facility] Comment on above: Performed By: #### I NFLUAB #### [facility] [address] [place] [address] Dr. Manuel Sandhu LIPASEon 08-11-2022 Lipase [Catalytic activity/Vol] 84.0 U/L Normal 73.0-393.0 [facility] Comment on above: Performed By: #### C CELINA JENNIE, LIPA #### [facility] [address] [place] [address] Dr. Manuel Sandhu URon 08-11-2022 , QUAL Negative Normal NEGATIVE [facility] Comment on above: Performed By: #### U MICRO, ERUR #### [facility] [address] [place] [address] Dr. Manuel Sandhu PROF 14(COMP METB)on 022 Albumin [Mass/Vol] 4.3 g/dL Normal 3.4-5.0 [facility] Comment on above: Performed By: #### C CELINA JENNIE, LIPA #### [facility] [address] [place] [address] Dr. Manuel Sandhu Albumin/Globulin [Mass ratio] 1.1 {ratio} Normal The [facility] Comment on above: Performed By: #### C MP, JENNIE, LIPA #### [facility] [address] [place] [address] Dr. Manuel Sandhu ALP [Catalytic activity/Vol] 87 U/L Normal 46-[address] [facility] Comment on above: Performed By: #### C MP JENNIE, LIPA #### [facility] [address] [place] [address] Dr. Manuel Sandhu ALT [Catalytic activity/Vol] 32 U/L Normal 14-59 [facility] Comment on above: Performed By: #### C JENNIE PATRICK, LIPA #### [facility] [address] [place] [address] Dr. Manuel Sandhu Anion gap [Moles/Vol] 12.7 mmol/L Normal Th e [facility] Comment on above: Performed By: #### C JENNIE PATRICK, LIPA #### [facility] [address] [place] [address] Dr. Manuel Sandhu AST [Catalytic activity/Vol] 24 U/L Normal 15-37 [facility] Comment on above: Performed By: #### C JENNIE PATRICK, LIPA #### [facility] [address] [place] [address] Dr. Manuel Sandhu Bilirubin [Mass/Vol] 0.3 mg/dL Normal 0.2-1.0 [facility] Comment on above: Performed By: #### C JENNIE PATRICK, LIPA #### [facility] [address] [place] [address] Dr. Manuel Sandhu Calcium [Mass/Vol] 9.4 mg/dL Normal 8.5-10.1 [facility] Comment on above: Performed By: #### C JENNIE PATRICK LIPA #### [facility] [address] [place] [address] Dr. Manuel Sandhu Chloride [Moles/Vol] 100 mmol/L Normal 98-107 [facility] Comment on above: Performed By: #### C CELINA JENNIE, LIPA #### [facility] [address] [place] [address] Dr. Manuel Sanduh CO2 [Moles/Vol] 27.7 mmol/L Normal 21.0-32.[address] [facility] Comment on above: Performed By: #### C CELINA JENNIE, LIPA #### [facility] [address] [place] [address] Dr. Manuel Sandhu Creatinine [Mass/Vol] 0.71 mg/dL Normal 0.55-1.02 [facility] Comment on above: Performed By: #### C CELINA JENNIE, LIPA #### [facility] [address] [address] [address] Manuel Sandhu EGFR-AF IRAQI >60 Normal >=[address] [facility] Comment on above: Performed By: #### C JENNIE PATRICK, LIPA #### [facility] [address] [address] [address] Manuel Sandhu EGFR-NON AF IRAQI >60 Normal >=60 [facility] Comment on above: Performed By: #### C JENNIE PATRICK, LIPA #### [facility] [address] [address] [address] Manuel Sandhu Globulin (S) [Mass/Vol] 3.9 g/dL Normal [facility] Comment on above: Performed By: #### C JENNIE PATRICK, LIPA #### [facility] [address] [address] [address] Manuel Sandhu Glucose [Mass/Vol] 109 mg/dL Critically high 74-106 [facility] Comment on above: Performed By: #### C JENNIE PATRICK, LIPA #### [facility] [address] [address] [address] Manuel Sandhu Potassium [Moles/Vol] 3.4 mmol/L Critically low 3.5-5.1 [facility] Comment on above: Performed By: #### C JENNIE PATRICK, LIPA #### [facility] [address] [address] [address] Manuel Sandhu Protein [Mass/Vol] 8.2 g/dL Normal 6.4-8.2 [facility] Comment on above: Performed By: #### C CELINA JENNIE, LIPA #### [facility] [address] [address] [address] Manuel Sandhu Sodium [Moles/Vol] 137 mmol/L Normal 136-145 [facility] Comment on above: Performed By: #### C CELINA JENNIE, LIPA #### [facility] [address] [address] [address] Manuel Sandhu Urea nitrogen [Mass/Vol] 10.0 mg/dL Normal 7.0-18.0 [facility] Comment on above: Performed By: #### C MP, JENNIE, LIPA #### [facility] [address] [address] [address] Manuel Sandhu Urea nitrogen/Creatinine [Mass ratio] 14.1 mg/mg Normal The [facility] Comment on above: Performed By: #### C MP, JENNIE, LIPA #### [facility] [address] [place] [address] Dr. Manuel Sandhu PROTIMEon 08-11-2022 INR Coag (PPP) [Relative time] 0.96 {INR} Normal The [facility] Comment on above: Performed By: #### I NFLUAB #### [facility] [address] [place] [address] Dr. Manuel Sandhu INR GUIDELINES SEE BELOW Normal [facility] Comment on above: Result Comment: CHUY RED INR: 2.0 - 3.0 CONDITIONS NOT LISTED BELOW 2.5 - 3.5 FOR PROSTHETIC HEART VALVE REPLACEMENT 2.5 - 3.5 RECURRENT THROMBOSIS Performed By: #### I NFLUAB #### [facility] [address] [place] [address] Dr. Manuel Sandhu PT Coag (PPP) [Time] 10.4 s Normal 9.0-11.[address] [facility] Comment on above: Performed By: #### I NFLUAB #### [facility] [address] [place] [address] Dr. Manuel Sandhu PTTon 08-11-2022 aPTT Coag (Bld) [Time] 25.3 s Normal 22.3-36.[address] [facility] Comment on above: Performed By: #### I NFLUAB #### [facility] [address] [place] [address] Dr. Manuel Sandhu TROPONIN, HIGH SENSITIVITYon 08-11-2022 HSTROP 4.5 pg/mL Normal 4.0-51.[address] [facility] Comment on above: Result Comment: CUT- OFF POINTS HAVE BEEN ESTABLISHED BASED ON THE FOURTH UNIVERSAL DEFINITIONS OF MYOCARDIAL INFARCTION. THE UPPER REFERENCE LIMIT (URL) OF TROPONIN, DEFINED THE 99TH PERCENTILE OF cTnI DISTRIBUTION IN A REFERENCE POPULATION, HAS BEEN CONFIRMED THE DECISION THRESHOLD FOR IA DIAGNOSIS. Performed By: #### C JENNIE PATRICK, LIPA #### [facility] [address] [place], [place] [address] Dr. Manuel Sandhu TSHon 08-11-2022 TSH 1.778 uIU/mL Normal 0.358-3.740 [facility] Comment on above: Performed By: #### C JENNIE PATRICK, LIPA #### [facility] [address] [id number] Manuel Sandhu CHEMISTRYOrdered By: SYSTEM SYSTEM [...] mL/min/1.73 m2 Normal >=59mL/min/1 .73 m2 [facility] Chem S Glucose [Mass/Vol] 84 [...] mg/dL Normal 55 - 99 mg/dL [facility] POC Subsection POC Device SN [id number] Invalid Interpretation Code [facility] POC Subsection POC User ID [id number] Invalid Interpretation Code [facility] POC Subsection POC Username MOLLY RALPH Invalid Interpretation Code [facility] POC Subsection HEMATOLOGYOrdered By: SYSTEM [...] E9/L [facility] HemeAutoSS MICRO OTHER TESTSOrdered By: Kimebrli Briseno on 08-08-2022 Influenzae A Ag Negative (08/08/22 9:59 AM) Normal Negative [facility] Man Sero Influenzae B Ag Negative (08/08/22 9:59 AM) Normal Negative [facility] Rapid COV Int NEG [place] (08/08/22 9:59 AM) Normal [facility] Rapid COV Int POS Ctl Pass (08/08/22 9:59 AM) Normal [facility]ero SARS-CoV+SARS-CoV-2 (COVID-19) Ag IA.rapid Ql [...] AM) Normal Negative [facility] Auto SS [place].plasma/Lithiu m.RBC (Bld) [Mass ratio] 0-3 /HPF Normal 0-3/HPF [facility] Auto SS Nitrite Ql (U) Negative (08/08/22 10:01 AM) Normal Negative [facility] Auto SS pH (U) 5.5 *NA* (08/08/22 10:01 AM) Invalid Interpretation Code 5.0 - 9.0 [facility] UA Auto SS Protein (U) [Mass/Vol] Negative (08/08/22 10:01 AM) Normal Negative [facility] UA Auto SS Specific gravity (U) [Rel density] <=1.005 *NA* (08/08/22 10:01 AM) Invalid Interpretation Code 1.005 - 1.030 [facility] UA Auto SS UA Spec Desc Clean Catch (08/08/22 10:01 AM) Normal [facility] UA Auto SS Urobilinogen Qn (U) [id number] {Lucila'U}/dL Normal 0.0 - 1.0 EU/dL [facility] UA Auto SS WBC Auto Ql (U) Negative (08/08/22 10:01 AM) Normal Negative [facility] UA Auto SS WBC LM.HPF (Urine sed) [#/Area] 0-5 /HPF Normal 0-5/HPF [facility] UA Auto SS CBC AUTO DIFFon 07-19-2022 BASO # 0.1 103/ul Normal 0.0-0.[address] [facility] Comment on above: Performed By: #### I NFLUAB #### [facility] [address] [place], [place] [address] Dr. Manuel Sandhu Basophils/100 WBC (Bld) 0.4 % Normal 0.2-2.[address] [facility] Comment on above: Performed By: #### I NFLUAB #### [facility] [address] [place] [address] Dr. Manuel Sandhu EO # 0.3 103/ul Normal 0.0-0.[address] [facility] Comment on above: Performed By: #### I NFLUAB #### [facility] [address] [place] [address] Dr. Manuel Sandhu Eosinophils/100 WBC (Bld) 2.4 % Normal 0.9-7.[address] [facility] Comment on above: Performed By: #### I NFLUAB #### [facility] [address] [place] [address] Dr. Manuel Sandhu Erythrocyte distribution width (RBC) [Ratio] 13.7 % Normal 11.0-15.[address] [facility] Comment on above: Performed By: #### I NFLUAB #### [facility] [address] [place] [address] Dr. Manuel Sandhu Hematocrit (Bld) [Volume fraction] 36.5 % Normal 36.0-48.[address] [facility] Comment on above: Performed By: #### I NFLUAB #### [facility] [address] [place] [address] Dr. Manuel Sandhu Hemoglobin (Bld) [Mass/Vol] 12.3 g/dL Normal 12.0-16.0 [facility] Comment on above: Performed By: #### I NFLUAB #### [facility] [address] [place] [address] Dr. Manuel Sandhu IG # 0.04 10e3/ul Critically high 0.00-0.03 The [facility] Comment on above: Performed By: #### I NFLUAB #### [facility] [address] [place] [address] Dr. Manuel Sandhu IG % 0.3 % Normal 0.0-0.[address] [facility] Comment on above: Performed By: #### I NFLUAB #### [facility] [address] [place] [address] Dr. Manuel Sandhu LYMPH # 2.6 103/ul Normal 1.2-3.[address] [facility] Comment on above: Performed By: #### I NFLUAB #### [facility] [address] [place] [address] Dr. Manuel Sandhu Lymphocytes/100 WBC (Bld) 22.3 % Normal 20.5-60.[address] [facility] Comment on above: Performed By: #### I NFLUAB #### [facility] [address] [place] [address] Dr. Manuel Sandhu MANUAL DIFF REQ NO Normal The [facility] Comment on above: Performed By: #### I NFLUAB #### [facility] [address] [place] [address] Dr. Manuel Sandhu MCH (RBC) [Entitic mass] 32.5 pg Normal 26.7-34.[address] [facility] Comment on above: Performed By: #### I NFLUAB #### [facility] [address] [place] [address] Dr. Manuel Sandhu MCHC (RBC) [Mass/Vol] 33.7 g/dL Normal 29.9-35.[address] [facility] Comment on above: Performed By: #### I NFLUAB #### [facility] [address] [place] [address] Dr. Manuel Sandhu MCV (RBC) [Entitic vol] 96.6 fL Normal 81.0-99.0 [facility] Comment on above: Performed By: #### I NFLUAB #### [facility] [address] [place] [address] Dr. Manuel Sandhu MONO # 0.6 103/ul Normal 0.3-0.[address] [facility] Comment on above: Performed By: #### I NFLUAB #### [facility] [address] [place] [address] Dr. Manuel Sandhu Monocytes/100 WBC (Bld) 5.2 % Normal 1.7-12.[address] [facility] Comment on above: Performed By: #### I NFLUAB #### [facility] [address] [place] [address] Dr. Manuel Sandhu NEUT # 8.2 103/ul Critically high 1.4-6.5 The [facility] Comment on above: Performed By: #### I NFLUAB #### [facility] [address] [address] [address] Manuel Sandhu Neutrophils/100 WBC (Bld) 69.4 % Normal 43.0-75.0 [facility] Comment on above: Performed By: #### I NFLUAB #### [facility] [address] [address] [address] Manuel Sandhu Platelet mean volume (Bld) [Entitic vol] 11.2 fL Normal 9.5-13.5 [facility] Comment on above: Performed By: #### I NFLUAB #### [facility] [address] [address] [address] Manuel Sandhu PLT 308 103/ul Normal 150-450 [facility] Comment on above: Performed By: #### I NFLUAB #### [facility] [address] [place] [address] Dr. Manuel Sandhu RBC 3.78 106/ul Critically low 4.20-5.40 The [facility] Comment on above: Performed By: #### I NFLUAB #### [facility] [address] [address] [address] Manuel Sandhu WBC 11.8 103/ul Critically high 4.0-11.[address] [facility] Comment on above: Performed By: #### I NFLUAB #### [facility] [address] [place] [address] Dr. Manuel Sandhu D-DIMERon 07-19-2022 D-DIMER 0.29 mg/L FEU Normal <=0.59 [facility] Comment on above: Performed By: #### U MICRO, ERUR #### [facility] [address] [address] [address] Manuel Sandhu D-DIMER COMMENTS SEE BELOW Normal [facility] Comment on above: Result Comment: Incr eases [...] Performed By: #### U MICRO, ERUR #### [facility] [address] [place] [address] Dr. Manuel Sandhu LIPASEon 07-19-2022 Lipase [Catalytic activity/Vol] 119.0 U/L Normal 73.0-393.0 [facility] Comment on above: Performed By: #### C MP, JENNIE, LIPA #### [facility] [address] [place] [address] Dr. Manuel Sandhu PROF 14(COMP METB)on 022 Albumin [Mass/Vol] 3.5 g/dL Normal 3.4-5.0 [facility] Comment on above: Performed By: #### C MP, JENNIE, LIPA #### [facility] [address] [place] [address] Dr. Manuel Sandhu Albumin/Globulin [Mass ratio] 1.0 {ratio} Normal [facility] Comment on above: Performed By: #### C MP, JENNIE, LIPA #### [facility] [address] [place] [address] Dr. Manuel Sandhu ALP [Catalytic activity/Vol] 65 U/L Normal 46-116 [facility] Comment on above: Performed By: #### C MP, JENNIE, LIPA #### [facility] [address] [place] [address] Dr. Manuel Sandhu ALT [Catalytic activity/Vol] 33 U/L Normal 14-59 [facility] Comment on above: Performed By: #### C MP, JENNIE, LIPA #### [facility] [address] [place] [address] Dr. Manuel Sandhu Anion gap [Moles/Vol] 10.8 mmol/L Normal [facility] Comment on above: Performed By: #### C MP, JENNIE, LIPA #### [facility] [address] [place] [address] Dr. Manuel Sandhu AST [Catalytic activity/Vol] 20 U/L Normal 15-37 [facility] Comment on above: Performed By: #### C CELINA JENNIE, LIPA #### [facility] [address] [place] [address] Dr. Manuel Sandhu Bilirubin [Mass/Vol] 0.1 mg/dL Critically low 0.2-1.0 [facility] Comment on above: Performed By: #### C MP JENNIE, LIPA #### [facility] [address] [place] [address] Dr. Manuel Sandhu Calcium [Mass/Vol] 8.7 mg/dL Normal 8.5-10.1 [facility] Comment on above: Performed By: #### C CELINA JENNIE, LIPA #### [facility] [address] [place] [address] Dr. Manuel Sandhu Chloride [Moles/Vol] 105 mmol/L Normal 98-107 [facility] Comment on above: Performed By: #### C CELINA JENNIE, LIPA #### [facility] [address] [place] [address] Dr. Manuel Sandhu CO2 [Moles/Vol] 24.4 mmol/L Normal 21.0-32.[address] [facility] Comment on above: Performed By: #### C CELINA JENNIE, LIPA #### [facility] [address] [place] [address] Dr. Manuel Sandhu Creatinine [Mass/Vol] 0.91 mg/dL Normal 0.55-1.02 [facility] Comment on above: Performed By: #### C CELINA JENNIE, LIPA #### [facility] [facility] [address] [place] [address] Dr. Manuel Sandhu EGFR-AF IRAQI >60 Normal >=[address] [facility] Comment on above: Performed By: #### C CELINA JENNIE, LIPA #### [facility] [address] [place] [address] Dr. Manuel Sandhu EGFR-NON AF IRAQI >60 Normal >=60 [facility] Comment on above: Performed By: #### C MP JENNIE, LIPA #### [facility] [address] [place] [address] Dr. Manuel Sandhu Globulin (S) [Mass/Vol] 3.4 g/dL Normal [facility] Comment on above: Performed By: #### C JENNIE PATRICK LIPA #### [facility] [address] [address] [address] Manuel Sandhu Glucose [Mass/Vol] 127 mg/dL Critically high 74-106 T [facility] Comment on above: Performed By: #### C JENNIE PATRICK LIPA #### [facility] [address] [place] [address] Dr. Manuel Sandhu Potassium [Moles/Vol] 3.2 mmol/L Critically low 3.5-5.1 [facility] Comment on above: Performed By: #### C JENNIE PATRICK LIPA #### [facility] [address] [place] [address] Dr. Manuel Sandhu Protein [Mass/Vol] 6.9 g/dL Normal 6.4-8.2 [facility] Comment on above: Performed By: #### C JENNIE PATRICK LIPA #### [facility] [address] [place] [address] Dr. Manuel Sandhu Sodium [Moles/Vol] 137 mmol/L Normal 136-145 [facility] Comment on above: Performed By: #### C JENNIE PATRICK LIPA #### [facility] [address] [place] [address] Dr. Manuel Sandhu Urea nitrogen [Mass/Vol] 13.0 mg/dL Normal 7.0-18.0 [facility] Comment on above: Performed By: #### C JENNIE PATRICK LIPA #### [facility] [address] [place] [address] Dr. Manuel Sandhu Urea nitrogen/Creatinine [Mass ratio] 14.3 mg/mg Normal [facility] Comment on above: Performed By: #### C JENNIE PATRICK LIPA #### [facility] [address] [place] [address] Dr. Manuel Sandhu PROTIMEon 07-19-2022 INR Coag (PPP) [Relative time] 0.97 {INR} Normal [facility] Comment on above: Performed By: #### P TT, PT #### [facility] [address] [place] [address] Dr. Manuel Sandhu INR GUIDELINES SEE BELOW Normal [facility] Comment on above: Result Comment: CHUY RED INR: 2.0 - 3.0 CONDITIONS NOT LISTED BELOW 2.5 - 3.5 FOR PROSTHETIC HEART VALVE REPLACEMENT 2.5 - 3.5 RECURRENT THROMBOSIS Performed By: #### P TT, PT #### [facility] [address] [address] [address] Manuel Sandhu PT Coag (PPP) [Time] 10.5 s Normal 9.0-11.[address] [facility] Comment on above: Performed By: #### P TT, PT #### [facility] [address] [place] [address] Dr. Manuel Sandhu PTTon 07-19-2022 aPTT Coag (Bld) [Time] 26.1 s Normal 22.3-36.[address] [facility] Comment on above: Performed By: #### P TT, PT #### [facility] [address] [place] [address] Dr. Manuel Sandhu TROPONIN, HIGH SENSITIVITYon 07-19-2022 HSTROP 5.4 pg/mL Normal 4.0-51.[address] [facility] Comment on above: Result Comment: CUT- OFF POINTS HAVE BEEN ESTABLISHED BASED ON THE FOURTH UNIVERSAL DEFINITIONS OF MYOCARDIAL INFARCTION. THE UPPER REFERENCE LIMIT (URL) OF TROPONIN, DEFINED THE 99TH PERCENTILE OF cTnI DISTRIBUTION IN A REFERENCE POPULATION, HAS BEEN CONFIRMED THE DECISION THRESHOLD FOR IA DIAGNOSIS. Performed By: #### U MICRO, ERUR #### [facility] [address] [place] [address] Dr. Manuel Sandhu HSTROP 5.1 pg/mL Normal 4.0-51.[address] [facility] Comment on above: Result Comment: CUT- OFF POINTS HAVE BEEN ESTABLISHED BASED ON THE FOURTH UNIVERSAL DEFINITIONS OF MYOCARDIAL INFARCTION. THE UPPER REFERENCE LIMIT (URL) OF TROPONIN, DEFINED THE 99TH PERCENTILE OF cTnI DISTRIBUTION IN A REFERENCE POPULATION, HAS BEEN CONFIRMED THE DECISION THRESHOLD FOR IA DIAGNOSIS. Performed By: #### C MP, JENNIE, LIPA #### [facility] [address] [place], [place] [address] Dr. Manuel Sandhu XR CHEST 1 Von [...] LUCIANA ALLEN Date: 2022-07-19 19:28 [address] [facility] Covid-19 PCR (CVDTB[facility])on 05-16 SARS-CoV-2 (COVID-19) RNA JOSÉ MIGUEL+probe Ql (Unsp spec) Not detected Normal NOT DETECTED [facility] Comment on above: Result Comment: [...] for this test is supported by the Head Of Business Development of Health and Human Service's declaration that [...] By: #### C JENNIE PATRICK LIPA #### [facility] [address] [place], [place] [address] Dr. Manuel Sandhu XR CHEST 2 Von [...] CAROLYNE RALPH Date: 2022-06-12 10:12 Normal [address] [facility] Covid-19 PCR (CVDTBH)on 05-15 SARS-CoV-2 (COVID-19) RNA JOSÉ MIGUEL+probe Ql (Unsp spec) Not detected Normal NOT DETECTED [facility] Comment on above: Result Comment: [...] for this test is supported by the [place] of Health and Human Service's declaration that [...] used). Performed By: #### I NFLUAB #### [facility] [address] [place] [address] Dr. Manuel Sandhu CHEMISTRYOrdered By: SYSTEM SYSTEM [...] mL/min/1.73 m2 Normal >=59mL/min/1 .73 m2 [facility] S GFR/1.73 sq M.predicted among non-blacks MDRD (S/P/Bld) [Vol rate/Area] mL/min/1.73 m2 Normal >=59mL/min/1 .73 m2 [facility] Chem S Glucose [Mass/Vol] 98 mg/dL Normal [...] spec) Detected Critically abnormal NOT DETECTED [facility] Comment on above: Result Comment: This test is not yet approved or cleared by the [place] FDA. When there are no FDA-approved or cleared tests available, and other criteria are met, FDA can make tests available under an emergency access mechanism called an Emergency Use Authorization (EUA). The EUA for this test is supported by the [place] of Health and Human Service's declaration that [...] By: #### C JENNIE PATRICK LIPA #### [facility] [address] [place] [address] Dr. Manuel Sandhu GROUP A STREP CULTUREon 03-15 S. pyogenes Ag Ql (Unsp spec) Culture Observations: NEGATIVE FOR GROUP A STREPTOCOCCUS. Normal [facility] Comment on above: Performed By: #### U MICRO, ERUR #### [facility] [address] [place] [address] Dr. Manuel Sandhu INFLUENZA A AND B AGon 04-07 INFLUENZA A AG Negative Normal NEGATIVE SEE COMMENT [facility] Comment on above: Performed By: #### I NFLUAB #### [facility] [address] [place] [address] Dr. Manuel Sandhu INFLUENZA B AG Negative Normal NEGATIVE SEE COMMENT [facility] Comment on above: Performed By: #### I NFLUAB #### [facility] [address] [place] [address] Dr. Manuel Sandhu INTERNAL CONTROLS Within Normal Limits Normal Wi thin Normal Limits [facility] Comment on above: Performed By: #### I NFLUAB #### [facility] [address] [place] [address] Dr. Manuel Sandhu STREPT SCREENon 04-07-2022 STREP SCREEN A Negative Normal NEGATIVE [facility] Comment on above: Performed By: #### U MICRO, ERUR #### [facility] [address] [place] [address] Dr. Manuel Sandhu CHEMISTRYOrdered By: SYSTEM SYSTEM [...] PM) Normal Negative [facility] UA Auto SS [place].plasma/Lithiu m.RBC (Bld) [Mass ratio] 0-3 /HPF Normal [...] [facility] UA Auto SS Urobilinogen Qn (U) 0.2261121 {Lucila'U}/dL Normal 0.0 - 1.0 EU/dL [facility] UA Auto SS WBC Auto Ql (U) Negative (04/03/22 6:51 PM) Normal Negative [facility] UA Auto SS WBC LM.HPF (Urine sed) [#/Area] 0-5 /HPF Normal 0-5/HPF [facility] UA Auto SS GROUP A STREP CULTUREon 01-13 S. pyogenes Ag Ql (Unsp spec) Culture Observations: NEGATIVE FOR GROUP A STREPTOCOCCUS. Normal [facility] Comment on above: Performed By: #### I NFLUAB #### [facility] [address] [place] [address] Dr. Manuel Sandhu STREPT SCREENon 02-08-2022 STREP SCREEN A Negative Normal NEGATIVE [facility] Comment on above: Performed By: #### I NFLUAB #### [facility] [address] [place] [address] Dr. Manuel Sandhu CBC AUTO DIFFon 01-30-2022 BASO # 0.1 103/ul Normal 0.0-0.1 [facility] Comment on above: Performed By: #### C BC #### [facility] [address] [place] [address] Dr. Manuel Sandhu Basophils/100 WBC (Bld) 0.4 % Normal 0.2-2.0 [facility] Comment on above: Performed By: #### C BC #### [facility] [address] [place] [address] Dr. Manuel Sandhu EO # 0.4 103/ul Normal 0.0-0.7 [facility] Comment on above: Performed By: #### C BC #### [facility] [address] [place] [address] Dr. Manuel Sandhu Eosinophils/100 WBC (Bld) 3.0 % Normal 0.9-7.[address] [facility] Comment on above: Performed By: #### C BC #### [facility] [address] [place] [address] Dr. Manuel Sandhu Erythrocyte distribution width (RBC) [Ratio] 13.3 % Normal 11.0-15.[address] [facility] Comment on above: Performed By: #### C BC #### [facility] [address] [place] [address] Dr. Manuel Sandhu Hematocrit (Bld) [Volume fraction] 36.8 % Normal 36.0-48.0 [facility] Comment on above: Performed By: #### C BC #### [facility] [address] [address] [address] Manuel Sandhu Hemoglobin (Bld) [Mass/Vol] 12.2 g/dL Normal 12.0-16.0 [facility] Comment on above: Performed By: #### C BC #### [facility] [address] [address] [address] Manuel Sandhu IG # 0.04 10e3/ul Critically high 0.00-0.03 [facility] Comment on above: Performed By: #### C BC #### [facility] [address] [place] [address] Dr. Manuel Sandhu IG % 0.3 % Normal 0.0-0.5 [facility] Comment on above: Performed By: #### C BC #### [facility] [address] [place] [address] Dr. Manuel Sandhu LYMPH # 2.8 103/ul Normal 1.2-3.[address] [facility] Comment on above: Performed By: #### C BC #### [facility] [address] [place] [address] Dr. Manuel Sandhu Lymphocytes/100 WBC (Bld) 23.0 % Normal 20.5-60.0 [facility] Comment on above: Performed By: #### C BC #### [facility] [address] [place] [address] Dr. Manuel Sandhu MANUAL DIFF REQ NO Normal The [facility] Comment on above: Performed By: #### C BC #### [facility] [address] [place] [address] Dr. Manuel Sandhu MCH (RBC) [Entitic mass] 32.1 pg Normal 26.7-34.[address] [facility] Comment on above: Performed By: #### C BC #### [facility] [address] [place] [address] Dr. Maneul Sandhu MCHC (RBC) [Mass/Vol] 33.2 g/dL Normal 29.9-35.[address] [facility] Comment on above: Performed By: #### C BC #### [facility] [address] [address] [address] Manuel Sandhu MCV (RBC) [Entitic vol] 96.8 fL Normal 81.0-99.0 [facility] Comment on above: Performed By: #### C BC #### [facility] [address] [place] [address] Dr. Manuel Sandhu MONO # 0.7 103/ul Normal 0.3-0.[address] [facility] Comment on above: Performed By: #### C BC #### [facility] [address] [place] [address] Dr. Manuel Sandhu Monocytes/100 WBC (Bld) 5.6 % Normal 1.7-12.0 [facility] Comment on above: Performed By: #### C BC #### [facility] [address] [place] [address] Dr. Manuel Sandhu NEUT # 8.2 103/ul Critically high 1.4-6.5 [facility] Comment on above: Performed By: #### C BC #### [facility] [address] [place] [address] Dr. Manuel Sandhu Neutrophils/100 WBC (Bld) 67.7 % Normal 43.0-75.[address] [facility] Comment on above: Performed By: #### C BC #### [facility] [address] [place] [address] Dr. Manuel Sandhu Platelet mean volume (Bld) [Entitic vol] 11.2 fL Normal 9.5-13.[address] [facility] Comment on above: Performed By: #### C BC #### [facility] [address] [place] [address] Dr. Manuel Sandhu PLT 312 103/ul Normal 150-[address] [facility] Comment on above: Performed By: #### C BC #### [facility] [address] [place] [address] Dr. Manuel Sandhu RBC 3.80 106/ul Critically low 4.20-5.40 [facility] Comment on above: Performed By: #### C BC #### [facility] [address] [place] [address] Dr. Manuel Sandhu WBC 12.1 103/ul Critically high 4.0-11.[address] [facility] Comment on above: Performed By: #### C BC #### [facility] [address] [address] [address] Manuel Sandhu Covid-19 PCR ([facility])on 01-12 SARS-CoV-2 (COVID-19) RNA JOSÉ MIGUEL+probe Ql (Unsp spec) Not detected Normal NOT DETECTED [facility] Comment on above: Result Comment: This test is not yet approved or cleared by the [place] FDA. When there are no FDA-approved or cleared tests available, and other criteria are met, FDA can make tests available under an emergency access mechanism called an Emergency Use Authorization (EUA). The EUA for this test is supported by the Head Of Business Development of Health and Human Service's (HHS's) declaration [...] SARS-CoV-2. Performed By: #### C VDTB #### [facility] [address] [address] [address] Manuel Sandhu DRUG SCREEN RAPID (URINE)on 01-30-2022 AMP Negative Normal NEGATIVE [facility] Comment on above: Performed By: #### U MICRO, ERUR #### [facility] [address] [address] [address] Manuel Sandhu BAR Negative Normal NEGATIVE [facility] Comment on above: Performed By: #### U MICRO, ERUR #### [facility] [address] [address] [address] Manuel Sandhu BUP Negative Normal NEGATIVE [facility] Comment on above: Performed By: #### U MICRO, ERUR #### [facility] [address] [place] [address] Dr. Manuel Sandhu BZO Negative Normal NEGATIVE [facility] Comment on above: Performed By: #### U MICRO, ERUR #### [facility] [address] [place] [address] Dr. Manuel Sandhu WISAM Negative Normal NEGATIVE [facility] Comment on above: Performed By: #### U MICRO, ERUR #### [facility] [address] [place] [address] Dr. Manuel Sandhu CUT-OFFS SEE BELOW Normal [facility] Comment on above: Result Comment: AMP [...] Performed By: #### U MICRO, ERUR #### [facility] [address] [place] [address] Dr. Manuel Sandhu DRUG CUT HEADER DRUG CLASS TEST SYST EM CUT-OFF CONCENTRATIONS ARE FOLLOWS: Normal [facility] Comment on above: Performed By: #### U MICRO, ERUR #### [facility] [address] [place] [address] Dr. Manuel Sandhu mAMP Negative Normal NEGATIVE [facility] Comment on above: Performed By: #### U MICRO, ERUR #### [facility] [address] [place] [address] Dr. Manuel Sandhu MTD Negative Normal NEGATIVE [facility] Comment on above: Performed By: #### U MICRO, ERUR #### [facility] [address] [place] [address] Dr. Manuel Sandhu OPI Negative Normal NEGATIVE [facility] Comment on above: Performed By: #### U MICRO, ERUR #### [facility] [address] [address] [address] Manuel Sandhu OXY Negative Normal NEGATIVE [facility] Comment on above: Performed By: #### U MICRO, ERUR #### [facility] [address] [address] [address] Manuel Sandhu PCP Negative Normal NEGATIVE [facility] Comment on above: Performed By: #### U MICRO, ERUR #### [facility] [address] [address] [address] Manuel Sandhu PPX Negative Normal NEGATIVE [facility] Comment on above: Performed By: #### U MICRO, ERUR #### [facility] [address] [place] [address] Dr. Manuel Sandhu TCA Negative Normal NEGATIVE [facility] Comment on above: Performed By: #### U MICRO, ERUR #### [facility] [address] [place] [address] Dr. Manuel Sandhu THC Negative Normal NEGATIVE [facility] Comment on above: Performed By: #### U MICRO, ERUR #### [facility] [address] [address] [address] Manuel Sandhu ER URINE PROFILEon 2 Bilirubin Ql (U) Negative Normal NEGATIVE [facility] Comment on above: Performed By: #### U MICRO, ERUR #### [facility] [address] [place] [address] Dr. Manuel Sandhu Clarity (U) CLEAR Normal CLEAR [facility] Comment on above: Performed By: #### U MICRO, ERUR #### [facility] [address] [place] [address] Dr. Manuel Sandhu Color (U) LT. YELLOW Normal YELLOW [facility] Comment on above: Performed By: #### U MICRO, ERUR #### [facility] [address] [place] [address] Dr. Manuel Sandhu ERUAHD A micrscopic examina tion will be performed if indicated. Normal [facility] Comment on above: Performed By: #### U MICRO, ERUR #### [facility] [address] [address] [address] Manuel Sandhu Glucose Ql (U) Negative Normal NEGATIVE [facility] Comment on above: Performed By: #### U MICRO, ERUR #### [facility] [address] [address] [address] Manuel Sandhu Hemoglobin Ql (U) Negative Normal NEGATIVE [facility] Comment on above: Performed By: #### U MICRO, ERUR #### [facility] [address] [address] [address] Manuel Sandhu Ketones Ql (U) Negative Normal NEGATIVE [facility] Comment on above: Performed By: #### U MICRO, ERUR #### [facility] [address] [address] [address] Manuel Sandhu LEUKOCYTES Negative Normal NEGATIVE [facility] Comment on above: Performed By: #### U MICRO, ERUR #### [facility] [address] [address] [address] Manuel Sandhu Nitrite Ql (U) Negative Normal NEGATIVE [facility] Comment on above: Performed By: #### U MICRO, ERUR #### [facility] [address] [address] [address] Manuel Sandhu pH (U) 5.5 [pH] Normal 5-9 [facility] Comment on above: Performed By: #### U MICRO, ERUR #### [facility] [address] [address] [address] Manuel Sandhu SPEC GRAVITY <=1.005 Abnormal 1.005-<=1.[address] [place] [address] Comment on above: Performed By: #### U MICRO, ERUR #### [facility] [address] [address] [address] Manuel Sandhu UA PROTEIN Negative Normal NEGATIVE/ TRACE [facility] Comment on above: Performed By: #### U MICRO, ERUR #### [facility] [address] [address] [address] Manuel Sandhu UR MICRO IND NOT INDICATED Normal [facility] Comment on above: Performed By: #### U MICRO, ERUR #### [facility] [address] [address] [address] Manuel Sandhu Urobilinogen Qn (U) 0.2 {Lucila'U}/dL Normal 0.2 - 1. 0 [facility] Comment on above: Performed By: #### U MICRO, ERUR #### [facility] [address] [place] [address] Dr. Manuel Sandhu ETHANOL (BLD ALC)on 01-31-20 22 ALC NOTE NOTE: 80 mg/dl is th e legal limit for a blood alcohol level Normal [facility] Comment on above: Performed By: #### I NFLUAB #### [facility] [address] [place] [address] Dr. Manuel Sandhu Ethanol [Mass/Vol] 47 mg/dL Normal [facility] Comment on above: Performed By: #### I NFLUAB #### [facility] [address] [place] [address] Dr. Manuel Sandhu PREG HCG QUALon 01-30-2022 , QUAL Negative Normal NEGATIVE [facility] Comment on above: Performed By: #### U MICRO, ERUR #### [facility] [address] [place] [address] Dr. Manuel Sandhu PROF 14(COMP METB)on 022 Albumin [Mass/Vol] 3.8 g/dL Normal 3.4-5.0 [facility] Comment on above: Performed By: #### I NFLUAB #### [facility] [address] [place] [address] Dr. Manuel Sandhu Albumin/Globulin [Mass ratio] 1.1 {ratio} Normal [facility] Comment on above: Performed By: #### I NFLUAB #### [facility] [address] [place] [address] Dr. Manuel Sandhu ALP [Catalytic activity/Vol] 88 U/L Normal 46-116 [facility] Comment on above: Performed By: #### I NFLUAB #### [facility] [address] [place] [address] Dr. Manuel Sandhu ALT [Catalytic activity/Vol] 30 U/L Normal 14-59 [facility] Comment on above: Performed By: #### I NFLUAB #### [facility] [address] [place] [address] Dr. Manuel Sandhu Anion gap [Moles/Vol] 17.3 mmol/L Normal Th [facility] Comment on above: Performed By: #### I NFLUAB #### [facility] [address] [place] [address] Dr. Manuel Sandhu AST [Catalytic activity/Vol] 17 U/L Normal 15-37 [facility] Comment on above: Performed By: #### I NFLUAB #### [facility] [address] [place] [address] Dr. Manuel Sandhu Bilirubin [Mass/Vol] 0.2 mg/dL Normal 0.2-1.0 [facility] Comment on above: Performed By: #### I NFLUAB #### [facility] [address] [place] [address] Dr. Manuel Sandhu Calcium [Mass/Vol] 8.9 mg/dL Normal 8.5-10.1 [facility] Comment on above: Performed By: #### I NFLUAB #### [facility] [address] [place] [address] Dr. Manuel Sandhu Chloride [Moles/Vol] 109 mmol/L Critically high 98-107 [facility] Comment on above: Performed By: #### I NFLUAB #### [facility] [address] [place] [address] Dr. Manuel Sandhu CO2 [Moles/Vol] 20.2 mmol/L Critically low 21.0-32.0 [facility] Comment on above: Performed By: #### I NFLUAB #### [facility] [address] [place] [address] Dr. Manuel Sandhu Creatinine [Mass/Vol] 0.69 mg/dL Normal 0.55-1.02 [facility] Comment on above: Performed By: #### I NFLUAB #### [facility] [address] [place] [address] Dr. Manuel Sandhu EGFR-AF IRAQI >60 Normal >=60 [facility] Comment on above: Performed By: #### I NFLUAB #### [facility] [address] [place] [address] Dr. Manuel Sandhu EGFR-NON AF IRAQI >60 Normal >=60 [facility] Comment on above: Performed By: #### I NFLUAB #### [facility] [address] [address] [address] Manuel Sandhu Globulin (S) [Mass/Vol] 3.6 g/dL Normal [facility] Comment on above: Performed By: #### I NFLUAB #### [facility] [address] [address] [address] Manuel Sandhu Glucose [Mass/Vol] 79 mg/dL Normal 74-106 [facility] Comment on above: Performed By: #### I NFLUAB #### [facility] [address] [place] [address] Dr. Manuel Sandhu Potassium [Moles/Vol] 3.5 mmol/L Normal 3.5-5.1 [facility] Comment on above: Performed By: #### I NFLUAB #### [facility] [address] [place] [address] Dr. Manuel Sandhu Protein [Mass/Vol] 7.4 g/dL Normal 6.4-8.2 [facility] Comment on above: Performed By: #### I NFLUAB #### [facility] [address] [place] [address] Dr. Manuel Sandhu Sodium [Moles/Vol] 143 mmol/L Normal 136-145 [facility] Comment on above: Performed By: #### I NFLUAB #### [facility] [address] [address] [address] Manuel Sandhu Urea nitrogen [Mass/Vol] 18.0 mg/dL Normal 7.0-18.0 [facility] Comment on above: Performed By: #### I NFLUAB #### [facility] [address] [place] [address] Dr. Manuel Sandhu Urea nitrogen/Creatinine [Mass ratio] 26.1 mg/mg Normal [facility] Comment on above: Performed By: #### I NFLUAB #### [facility] [address] [place] [address] Dr. Manuel Sandhu AMYLASEon 11-16-2021 Amylase [Catalytic activity/Vol] 60 U/L Normal 31-[address] [facility] Comment on above: Performed By: #### C JENNIE PATRICK LIPA #### [facility] [address] [place] [address] Dr. Manuel Sandhu CBC AUTO DIFFon 11-16-2021 BASO # 0.1 103/ul Normal 0.0-0.1 [facility] Comment on above: Performed By: #### C JENNIE PATRICK, LIPA #### [facility] [address] [place] [address] Dr. Manuel Sandhu Basophils/100 WBC (Bld) 0.5 % Normal 0.2-2.0 [facility] Comment on above: Performed By: #### C CELINA JENNIE, LIPA #### [facility] [address] [place] [address] Dr. Manuel Sandhu EO # 0.3 103/ul Normal 0.0-0.7 [facility] Comment on above: Performed By: #### C CELINA JENNIE, LIPA #### [facility] [address] [place] [address] Dr. Manuel Sandhu Eosinophils/100 WBC (Bld) 3.1 % Normal 0.9-7.0 [facility] Comment on above: Performed By: #### C JENNIE PATRICK, LIPA #### [facility] [address] [place] [address] Dr. Manuel Sandhu Erythrocyte distribution width (RBC) [Ratio] 13.4 % Normal 11.0-15.[address] [facility] Comment on above: Performed By: #### C JENNIE PATRICK, LIPA #### [facility] [address] [place] [address] Dr. Manuel Sandhu Hematocrit (Bld) [Volume fraction] 39.0 % Normal 36.0-48.[address] [facility] Comment on above: Performed By: #### C MP, JENNIE, LIPA #### [facility] [address] [place] [address] Dr. Manuel Sandhu Hemoglobin (Bld) [Mass/Vol] 12.8 g/dL Normal 12.0-16.0 [facility] Comment on above: Performed By: #### C MP, JENNIE, LIPA #### [facility] [address] [place] [address] Dr. Manuel Sandhu IG # 0.03 10e3/ul Normal 0.00-0.03 [facility] Comment on above: Performed By: #### C MP, JENNIE, LIPA #### [facility] [address] [place] [address] Dr. Manuel Sandhu IG % 0.3 % Normal 0.0-0.5 [facility] Comment on above: Performed By: #### C MP, JENNIE, LIPA #### [facility] [address] [place] [address] Dr. Manuel Sandhu LYMPH # 2.8 103/ul Normal 1.2-3.8 [facility] Comment on above: Performed By: #### C MP JENNIE, LIPA #### [facility] [address] [place] [address] Dr. Manuel Sandhu Lymphocytes/100 WBC (Bld) 29.9 % Normal 20.5-60.0 [facility] Comment on above: Performed By: #### C CELINA JENNIE, LIPA #### [facility] [address] [place] [address] Dr. Manuel Sandhu MANUAL DIFF REQ NO Normal [facility] Comment on above: Performed By: #### C MP, JENNIE, LIPA #### [facility] [address] [place] [address] Dr. Manuel Sandhu MCH (RBC) [Entitic mass] 32.2 pg Normal 26.7-34.0 [facility] Comment on above: Performed By: #### C MP, JENNIE, LIPA #### [facility] [address] [place] [address] Dr. Manuel Sandhu MCHC (RBC) [Mass/Vol] 32.8 g/dL Normal 29.9-35.[address] [facility] Comment on above: Performed By: #### C JENNIE PATRICK LIPA #### [facility] [address] [place] [address] Dr. Manuel Sandhu MCV (RBC) [Entitic vol] 98.0 fL Normal 81.0-99.[address] [facility] Comment on above: Performed By: #### C JENNIE PATRICK LIPA #### [facility] [address] [place] [address] Dr. Manuel Sandhu MONO # 0.7 103/ul Normal 0.3-0.[address] [facility] Comment on above: Performed By: #### C JENNIE PATRICK LIPA #### [facility] [address] [place] [address] Dr. Manuel Sandhu Monocytes/100 WBC (Bld) 7.7 % Normal 1.7-12.0 [facility] Comment on above: Performed By: #### C JENNIE PATRICK LIPA #### [facility] [address] [place] [address] Dr. Manuel Sandhu NEUT # 5.5 103/ul Normal 1.4-6.[address] [facility] Comment on above: Performed By: #### C JENNIE PATRICK LIPA #### [facility] [address] [place] [address] Dr. Manuel Sandhu Neutrophils/100 WBC (Bld) 58.5 % Normal 43.0-75.[address] [facility] Comment on above: Performed By: #### C JENNIE PATRICK LIPA #### [facility] [address] [place] [address] Dr. Manuel Sandhu Platelet mean volume (Bld) [Entitic vol] 11.7 fL Normal 9.5-13.[address] [facility] Comment on above: Performed By: #### C JENNIE PATRICK LIPA #### [facility] [address] [place] [address] Dr. Manuel Sandhu PLT 301 103/ul Normal 150-[address] [facility] Comment on above: Performed By: #### C JENNIE PATRICK LIPA #### [facility] [address] [place], [place] [address] Dr. Manuel Sandhu RBC 3.98 106/ul Critically low 4.20-5.40 The [facility] Comment on above: Performed By: #### C JENNIE PATRICK, LIPA #### [facility] [address] [place], [place] [address] Dr. Manuel Sandhu WBC 9.3 103/ul Normal 4.0-11.[address] [facility] Comment on above: Performed By: #### C JENNIE PATRICK, LIPA #### [facility] [address] [place], [place] [address] ABD/PELVIS WO CONon [...] HARMONY HARRELL Date: 2021-11-16 19:55 Normal [address] [facility] ER URINE PROFILEon 2 Bilirubin Ql (U) Negative Normal NEGATIVE [facility] Comment on above: Performed By: #### C JENNIE PATRICK LIPA #### [facility] [address] [place] [address] Dr. Manuel Sandhu Clarity (U) CLEAR Normal CLEAR [facility] Comment on above: Performed By: #### C CELINA JENNIE, LIPA #### [facility] [address] [place] [address] Dr. Manuel Sandhu Color (U) LT. YELLOW Normal YELLOW [facility] Comment on above: Performed By: #### C MP JENNIE, LIPA #### [facility] [address] [place] [address] Dr. Manuel Sandhu ERUANAD A micrscopic examina tion will be performed if indicated. Normal The [facility] Comment on above: Performed By: #### C MP JENNIE, LIPA #### [facility] [address] [place] [address] Dr. Manuel Sandhu Glucose Ql (U) Negative Normal NEGATIVE [facility] Comment on above: Performed By: #### C MP, JENNIE, LIPA #### [facility] [address] [address] [address] Manuel Sandhu Hemoglobin Ql (U) Negative Normal NEGATIVE [facility] Comment on above: Performed By: #### C MP, JENNIE, LIPA #### [facility] [address] [address] [address] Manuel Sandhu Ketones Ql (U) Negative Normal NEGATIVE [facility] Comment on above: Performed By: #### C MP, JENNIE, LIPA #### [facility] [address] [address] [address] Manuel Sandhu LEUKOCYTES Negative Normal NEGATIVE [facility] Comment on above: Performed By: #### C MP, JENNIE, LIPA #### [facility] [address] [place] [address] Dr. Manuel Sandhu Nitrite Ql (U) Negative Normal NEGATIVE [facility] Comment on above: Performed By: #### C MP, JENNIE, LIPA #### [facility] [address] [place] [address] Dr. Manuel Sandhu pH (U) 7.0 [pH] Normal 5-9 [facility] Comment on above: Performed By: #### C MP, JENNIE, LIPA #### [facility] [address] [place] [address] Dr. Manuel Sandhu SPEC GRAVITY <=1.005 Abnormal 1.005-<=1.02 5 [facility] Comment on above: Performed By: #### C MP, JENNIE, LIPA #### [facility] [address] [place] [address] Dr. Manuel Sandhu UA PROTEIN Negative Normal NEGATIVE/ TRACE The [facility] Comment on above: Performed By: #### C MP, JENNIE, LIPA #### [facility] [address] [place] [address] Dr. Manuel Sandhu UR MICRO IND NOT INDICATED Normal The [facility] Comment on above: Performed By: #### C MP, JENNIE, LIPA #### [facility] [address] [place] [address] Dr. Manuel Sandhu Urobilinogen Qn (U) 0.2 {Lucila'U}/dL Normal 0.2 - 1. 0 [facility] Comment on above: Performed By: #### C MP, JENNIE, LIPA #### [facility] [address] [place] [address] Dr. Manuel Sandhu LIPASEon 11-16-2021 Lipase [Catalytic activity/Vol] 78.0 U/L Normal 23.0-300.0 [facility] Comment on above: Performed By: #### C MP, JENNIE, LIPA #### [facility] [address] [place] [address] Dr. Manuel Sandhu URon 11-16-2021 , QUAL Negative Normal NEGATIVE The [facility] Comment on above: Performed By: #### C MP, JENNIE, LIPA #### [facility] [address] [place] [address] Dr. Manuel Sandhu PROF 14(COMP METB)on 022 Albumin [Mass/Vol] 4.1 g/dL Normal 3.5-5.0 [facility] Comment on above: Performed By: #### C MP JENNIE, LIPA #### [facility] [address] [place] [address] Dr. Manuel Sandhu Albumin/Globulin [Mass ratio] 1.1 {ratio} Normal [facility] Comment on above: Performed By: #### C MP, JENNIE, LIPA #### [facility] [address] [place] [address] Dr. Manuel Sandhu ALP [Catalytic activity/Vol] 102 U/L Normal 38-[address] [facility] Comment on above: Performed By: #### C MP, JENNIE, LIPA #### [facility] [address] [place] [address] Dr. Manuel Sandhu ALT [Catalytic activity/Vol] 39 U/L Normal 9-52 [facility] Comment on above: Performed By: #### C MP, JENNIE, LIPA #### [facility] [address] [place] [address] Dr. Manuel Sandhu Anion gap [Moles/Vol] 11.5 mmol/L Normal Th e [facility] Comment on above: Performed By: #### C JENNIE PATRICK LIPA #### [facility] [address] [place] [address] Dr. Manuel Sandhu AST [Catalytic activity/Vol] 28 U/L Normal 14-36 [facility] Comment on above: Performed By: #### C JENNIE PATRICK LIPA #### [facility] [address] [place] [address] Dr. Manuel Sandhu Bilirubin [Mass/Vol] 0.2 mg/dL Normal 0.2-1.[address] [facility] Comment on above: Performed By: #### C JENNIE PATRICK LIPA #### [facility] [address] [place] [address] Dr. Manuel Sandhu Calcium [Mass/Vol] 9.1 mg/dL Normal 8.4-10.2 [facility] Comment on above: Performed By: #### C JENNIE PATRICK LIPA #### [facility] [address] [place] [address] Dr. Manuel Sandhu Chloride [Moles/Vol] 105 mmol/L Normal 98-[address] [facility] Comment on above: Performed By: #### C JENNIE PATRICK LIPA #### [facility] [address] [place] [address] Dr. Manuel Sandhu CO2 [Moles/Vol] 25.0 mmol/L Normal 22.0-30.[address] [facility] Comment on above: Performed By: #### C JENNIE PATRICK LIPA #### [facility] [address] [place] [address] Dr. Manuel Sandhu Creatinine [Mass/Vol] 0.77 mg/dL Normal 0.52-1.[address] [facility] Comment on above: Performed By: #### C JENNIE PATRICK LIPA #### [facility] [address] [place] [address] Dr. Manuel Sandhu EGFR-AF IRAQI >60 Normal >=[address] [facility] Comment on above: Performed By: #### C JENNIE PATRICK, LIPA #### [facility] [address] [address] [address] Manuel Sandhu EGFR-NON AF IRAQI >60 Normal >=[address] [facility] Comment on above: Performed By: #### C JENNIE PATRICK LIPA #### [facility] [address] [address] [address] Manuel Sandhu Globulin (S) [Mass/Vol] 3.8 g/dL Normal [facility] Comment on above: Performed By: #### C JENNIE PATRICK LIPA #### [facility] [address] [place] [address] Dr. Manuel Sandhu Glucose [Mass/Vol] 85 mg/dL Normal 74-106 [facility] Comment on above: Performed By: #### C JENNIE PATRICK LIPA #### [facility] [address] [place] [address] Dr. Manuel Sandhu Potassium [Moles/Vol] 3.5 mmol/L Normal 3.4-5.[address] [facility] Comment on above: Performed By: #### C JENNIE PATRICK LIPA #### [facility] [address] [place] [address] Dr. Manuel Sandhu Protein [Mass/Vol] 7.9 g/dL Normal 6.1-8.2 [facility] Comment on above: Performed By: #### C JENNIE PATRICK LIPA #### [facility] [address] [place] [address] Dr. Manuel Sandhu Sodium [Moles/Vol] 138 mmol/L Normal 137-145 [facility] Comment on above: Performed By: #### C JENNIE PATRICK, LIPA #### [facility] [address] [place] [address] Dr. Manuel Sandhu Urea nitrogen [Mass/Vol] 18.0 mg/dL Critically high 7.0-17.0 [facility] Comment on above: Performed By: #### C JENNIE PATRICK, LIPA #### [facility] [address] [place] [address] Dr. Manuel Sandhu Urea nitrogen/Creatinine [Mass ratio] 23.4 mg/mg Normal [facility] Comment on above: Performed By: #### C JENNIE PATRICK LIPA #### [facility] [address] ABDOMEN PELVIS W [...] in the pelvis, which could be physiologic. [employer] Work Phone: EXAMINATION: CT OF T HE [...] grade 1 anterolisthesis at L5-S1 is unchanged. [employer] Phone: Dario, [facility] Incoming Radiant Results From [employer] - 02/04/2021 4:32 PM EDT EXAMINATION: CT [...] in the pelvis, which could be physiologic. [employer] Phone: [employer] Phone: Basic Metabolic Panel w/ Ref brannon to MGOrdered By: Ruiz Joel on 02-01-2021 Anion gap [Moles/Vol] 15 mmol/L 9 - 17 mmol/L [employer] Phone: Calcium [Mass/Vol] 8.5 mg/dL Low 8.6 - 10. 4 mg/dL [employer] Phone: Chloride [Moles/Vol] 107 mmol/L 98 - 10 7 mmol/L [employer] Phone: CO2 [Moles/Vol] 16 mmol/L Low 20 - 31 mmol/L [employer] Phone: Creatinine [Mass/Vol] 0.36 mg/dL Low 0.50 - 0.90 mg/dL [employer] Phone: GFR >60 >60 mL/min [employer] Phone: GFR Non- >60 >60 mL/min [employer] Phone: GFR/1.73 sq M.predicted MDRD (S/P/Bld) [Vol rate/Area] [employer] Phone: Comment on above: Average GFR for 30-3 9 years old: 107 mL/min/1.73sq m Chronic Kidney Disease: <60 mL/min/1.73sq m Kidney failure: <15 mL/min/1.73sq m eGFR calculated using average adult body mass. Additional eGFR calculator available at: http://www.SeeWhy/multiple_crcl_2012.htm GFR/1.73 sq M.predicted MDRD (S/P/Bld) [Vol rate/Area] NOT REPORTED [employer] Phone: Glucose [Mass/Vol] 79 mg/dL 70 - 99 mg/dL [employer] Phone: Interpretation and review of laboratory results Abnormal [employer] Phone: Potassium [Moles/Vol] 3.7 mmol/L 3.7 - 5.3 mmol/L [employer] Phone: Sodium [Moles/Vol] 138 mmol/L 135 - 144 mmol/L [employer] Phone: Urea nitrogen (BldV) [Mass/Vol] 2 mg/dL Low 6 - 20 mg/dL [employer] Phone: Urea nitrogen/Creatinine (Bld) [Mass ratio] NOT REPORTED [employer] Phone: [employer] Phone: CBC WITH AUTO DIFFERENTIALOr dered By: Ruiz Joel on 02-01-2021 Absolute Eos # 0.28 [facility] Work Phone: Absolute Immature Granulocyte 0.06 [employer] Work Phone: Absolute Lymph # 1.62 [facility] Work Phone: Absolute Ida # 1.46 High [employer] [facility] Work Phone: Basophils (Bld) [#/Vol] 0.04 10*3/uL [employer] Work Phone: Basophils/100 WBC (Bld) 0 % 0 - 2 % [employer] Work Phone: Differential Type NOT REPORTED [employer] Phone: Eosinophils/100 WBC (Bld) 3 % 1 - 4 % [employer] Phone: Hematocrit (Bld) [Volume fraction] 33.7 % Low 36.3 - 47.1 % [employer] Work Phone: Hemoglobin.gastrointe stinal spec 1 Ql (Stl) 10.3 g/dL Low 11.9 - 15.1 g/dL [employer] Phone: Immature granulocytes/100 WBC (Bld) 1 % High 0 [employer] Phone: Interpretation and review of laboratory results Abnormal [employer] Phone: Lymphocytes/100 WBC (Bld) 14 % Low 24 - 43 % [employer] Phone: MCH (RBC) [Entitic mass] 29.9 pg 25.2 - 33.5 pg [employer] Phone: MCHC (RBC) [Mass/Vol] 30.6 g/dL 28.4 - 34.8 g/dL [employer] Phone: MCV (RBC) [Entitic vol] 98.0 fL 82.6 - 102.9 fL [employer] Work Phone: Monocytes/100 WBC (Bld) 13 % High 3 - 12 % [employer] Work Phone: NRBC Automated 0.0 0.0 per 100 WBC [employer] Phone: Platelet distribution width (Bld) [Ratio] 13.4 % 11.8 - 14.4 % [employer] Phone: Platelet Estimate NOT REPORTED [employer] Phone: Platelet mean volume (Bld) [Entitic vol] 11.6 fL 8.1 - 13.5 fL [employer] Phone: Platelets (Bld) [#/Vol] 392 10*3/uL [employer] Phone: RBC (Bld) [#/Vol] 3.44 10*6/uL Low 3.95 - 5.1 1 m/uL [employer] Work Phone: RBC (Bld) [#/Vol] NOT REPORTED [employer] Phone: Segmented neutrophils/100 WBC (Bld) 69 % High 36 - 65 % [employer] Phone: Segs Absolute 7.88 [employer] Work Phone: WBC (Bld) [#/Vol] 11.3 10*3/uL [employer] Work Phone: WBC (Bld) [#/Vol] NOT REPORTED [employer] Phone: [employer] Work Phone: Basic Metabolic Panel w/ Ref brannon to MGOrdered By: Nicolasa Le on 01-31-2021 Anion gap [Moles/Vol] 17 mmol/L 9 - 17 mmol/L [employer] Phone: Calcium [Mass/Vol] 8.7 mg/dL 8.6 - 10. 4 mg/dL [employer] Work Phone: Chloride [Moles/Vol] 105 mmol/L 98 - 10 7 mmol/L [employer] Phone: CO2 [Moles/Vol] 15 mmol/L Low 20 - 31 mmol/L [employer] Phone: Creatinine [Mass/Vol] 0.36 mg/dL Low 0.50 - 0.90 mg/dL [employer] Phone: GFR >60 >60 mL/min [employer] Phone: GFR Non- >60 >60 mL/min [employer] Phone: GFR/1.73 sq M.predicted MDRD (S/P/Bld) [Vol rate/Area] [employer] Phone: Comment on above: Average GFR for 30-3 9 years old: 107 mL/min/1.73sq m Chronic Kidney Disease: <60 mL/min/1.73sq m Kidney failure: <15 mL/min/1.73sq m eGFR calculated using average adult body mass. Additional eGFR calculator available at: http://www.SeeWhy/multiple_crcl_2012.htm GFR/1.73 sq M.predicted MDRD (S/P/Bld) [Vol rate/Area] NOT REPORTED [employer] Phone: Glucose [Mass/Vol] 78 mg/dL 70 - 99 mg/dL [employer] Phone: Interpretation and review of laboratory results Abnormal [employer] Phone: Potassium [Moles/Vol] 3.8 mmol/L 3.7 - 5.3 mmol/L [employer] Phone: Sodium [Moles/Vol] 137 mmol/L 135 - 144 mmol/L [employer] Phone: Urea nitrogen (BldV) [Mass/Vol] 3 mg/dL Low 6 - 20 mg/dL [employer] Phone: Urea nitrogen/Creatinine (Bld) [Mass ratio] NOT REPORTED [employer] Work Phone: [employer] Work Phone: CBC auto differentialOrdered By: Nicolasa Le on 01-31-2021 Absolute Eos # 0.30 [facility] Work Phone: Absolute Immature Granulocyte 0.15 [employer] Work Phone: Absolute Lymph # 2.10 [employer] [facility] Work Phone: Absolute Ida # 2.25 High [employer] [facility] Work Phone: Basophils (Bld) [#/Vol] 0.00 10*3/uL [employer] Work Phone: Basophils/100 WBC (Bld) 0 % 0 - 2 % [employer] Work Phone: Differential Type NOT REPORTED [employer] Work Phone: Eosinophils/100 WBC (Bld) 2 % 1 - 4 % [employer] Work Phone: Hematocrit (Bld) [Volume fraction] 35.7 % Low 36.3 - 47.1 % [employer] Phone: Hemoglobin.gastrointe stinal spec 1 Ql (Stl) 10.8 g/dL Low 11.9 - 15.1 g/dL [employer] Work Phone: Immature granulocytes/100 WBC (Bld) 1 % High 0 [employer] Work Phone: Interpretation and review of laboratory results Abnormal [employer] Phone: Lymphocytes/100 WBC (Bld) 14 % Low 24 - 43 % [employer] Work Phone: MCH (RBC) [Entitic mass] 29.9 pg 25.2 - 33.5 pg [employer] Work Phone: MCHC (RBC) [Mass/Vol] 30.3 g/dL 28.4 - 34.8 g/dL [employer] Phone: MCV (RBC) [Entitic vol] 98.9 fL 82.6 - 102.9 fL [employer] Phone: Monocytes/100 WBC (Bld) 15 % High 3 - 12 % [employer] Phone: Morphology Celso (Bld) [Interp] Normal [employer] Phone: NRBC Automated 0.0 0.0 per 100 WBC [employer] Phone: Platelet distribution width (Bld) [Ratio] 13.5 % 11.8 - 14.4 % [employer] Phone: Platelet Estimate NOT REPORTED [employer] Phone: Platelet mean volume (Bld) [Entitic vol] 11.6 fL 8.1 - 13.5 fL [employer] Phone: Platelets (Bld) [#/Vol] 375 10*3/uL [employer] Phone: RBC (Bld) [#/Vol] 3.61 10*6/uL Low 3.95 - 5.1 1 m/uL [employer] Phone: RBC (Bld) [#/Vol] NOT REPORTED [employer] Phone: Segmented neutrophils/100 WBC (Bld) 68 % High 36 - 65 % [employer] Phone: Segs Absolute 10.20 High [employer] Work Phone: WBC (Bld) [#/Vol] 15.0 10*3/uL High [employer] Work Phone: WBC (Bld) [#/Vol] NOT REPORTED [employer] Phone: [employer] Work Phone: CBC Auto DifferentialOrdered By: David Nash on 01-30-2021 [facility] # 0.21 [facility] [facility] Work Phone: Absolute Immature Granulocyte 0.04 [employer] Work Phone: Absolute Lymph # 1.88 [employer] Work Phone: Absolute Ida # 1.43 High [employer] [facility] Work Phone: Basophils (Bld) [#/Vol] 0.04 10*3/uL [employer] Work Phone: Basophils/100 WBC (Bld) 0 % 0 - 2 % [employer] Work Phone: Differential Type NOT REPORTED [employer] Work Phone: Eosinophils/100 WBC (Bld) 2 % 1 - 4 % [employer] Phone: Hematocrit (Bld) [Volume fraction] 36.2 % Low 36.3 - 47.1 % [employer] Work Phone: Hemoglobin.gastrointe stinal spec 1 Ql (Stl) 11.7 g/dL Low 11.9 - 15.1 g/dL [facility] Phone: Immature granulocytes/100 WBC (Bld) 0 % 0 [employer] Phone: Interpretation and review of laboratory results Abnormal [employer] Phone: Lymphocytes/100 WBC (Bld) 15 % Low 24 - 43 % [employer] Work Phone: MCH (RBC) [Entitic mass] 30.3 pg 25.2 - 33.5 pg [employer] Phone: MCHC (RBC) [Mass/Vol] 32.3 g/dL 28.4 - 34.8 g/dL [employer] Phone: MCV (RBC) [Entitic vol] 93.8 fL 82.6 - 102.9 fL [employer] Work Phone: Monocytes/100 WBC (Bld) 12 % 3 - 12 % [employer] Work Phone: NRBC Automated 0.0 0.0 per 100 WBC [employer] Phone: Platelet distribution width (Bld) [Ratio] 13.2 % 11.8 - 14.4 % [employer] Phone: Platelet Estimate NOT REPORTED [employer] Phone: Platelet mean volume (Bld) [Entitic vol] 11.6 fL 8.1 - 13.5 fL [employer] Phone: Platelets (Bld) [#/Vol] 414 10*3/uL [employer] Phone: RBC (Bld) [#/Vol] 3.86 10*6/uL Low 3.95 - 5.1 1 m/uL [employer] Phone: RBC (Bld) [#/Vol] NOT REPORTED [employer] Phone: Segmented neutrophils/100 WBC (Bld) 71 % High 36 - 65 % [employer] Work Phone: Segs Absolute 8.75 High [employer] Work Phone: WBC (Bld) [#/Vol] 12.4 10*3/uL High [employer] Work Phone: WBC (Bld) [#/Vol] NOT REPORTED [facility] Phone: [employer] Work Phone: CT ABDOMEN PELVIS W IV [...] anterolisthesis and marked decrease in disc height. [facility] Phone: EXAMINATION: CT OF T HE ABDOMEN [...] height was noted at the L5-S1 disc. [facility] Phone: Dario, Mhpn Incoming Radiant Results From [employer] - 01/30/2021 12:20 PM EDT EXAMINATION: CT [...] anterolisthesis and marked decrease in disc height. [facility] Phone: [employer] Phone: Comprehensive Metabolic Pane l w/ Reflex to MGOrdered By: David Nash on 01-30-2021 Albumin [Mass/Vol] 3.6 g/dL 3.5 - 5.2 g/dL [facility] Phone: Albumin/Globulin [Mass ratio] 1.0 {ratio} [facility] Phone: ALP (Bld) [Catalytic activity/Vol] 107 U/L High 35 - 104 U/L [employer] Phone: ALT [Catalytic activity/Vol] 33 U/L 5 - 33 U/L [employer] Phone: Anion gap [Moles/Vol] 17 mmol/L 9 - 17 mmol/L [employer] Phone: AST [Catalytic activity/Vol] 26 U/L <32 [employer] Phone: Bilirubin [Mass/Vol] 0.25 mg/dL Low 0.3 - 1 .2 mg/dL [facility] Phone: Calcium [Mass/Vol] 9.5 mg/dL 8.6 - 10. 4 mg/dL [employer] Phone: Chloride [Moles/Vol] 104 mmol/L 98 - 10 7 mmol/L [employer] Phone: CO2 [Moles/Vol] 19 mmol/L Low 20 - 31 mmol/L [employer] Phone: Creatinine [Mass/Vol] 0.47 mg/dL Low 0.50 - 0.90 mg/dL [employer] Phone: Free PSA/Total PSA [Mass fraction] 7.3 g/dL 6.4 - 8.3 g/dL [employer] Phone: GFR >60 >60 mL/min apprupt Phone: GFR Non- >60 >60 mL/min [facility] Phone: Glucose [Mass/Vol] 79 mg/dL 70 - 99 mg/dL [facility] Phone: Interpretation and review of laboratory results Abnormal [employer] Phone: Potassium [Moles/Vol] 3.8 mmol/L 3.7 - 5.3 mmol/L [employer] Phone: Sodium [Moles/Vol] 140 mmol/L 135 - 144 mmol/L [employer] Phone: Urea nitrogen (BldV) [Mass/Vol] 5 mg/dL Low 6 - 20 mg/dL [employer] Phone: Urea nitrogen/Creatinine (Bld) [Mass ratio] 11 [employer] Phone: HCG Qualitative, SerumOrdere d By: Noreenfallon Mckeon on 01-30-2021 hCG Qual Negative NEGATIVE [facility] Phone: Comment on above: Specimens with hCG l evels near the threshold of the test (25 mIU/mL) may give a negative or indeterminate result. In such cases, another test should be performed with a new specimen in 48-72 hours. If early is suspected clinically in this setting, correlation with quantitative serum b-hCG level is suggested. [facility] has confirmed the use of plasma for this test. This has not been cleared or approved by the U.S. Food and Drug Administration. The FDA has determined that such clearance is not necessary. [facility] Phone: Laboratory - Chemistry and C hemistry - challengeOrdered By: David Nash on 01-30-2021 GFR/1.73 sq M.predicted MDRD (S/P/Bld) [Vol rate/Area] [employer] Phone: Comment on above: Average GFR for 30-3 9 years old: 107 mL/min/1.73sq m Chronic Kidney Disease: <60 mL/min/1.73sq m Kidney failure: <15 mL/min/1.73sq m eGFR calculated using average adult body mass. Additional eGFR calculator available at: http://www.Ofelia Feliz.Evolve IP/multiple_crcl_2012.htm Stage 1: Some kidney damage normal GFR Stage 2: Mild kidney damage GFR 60-89 Stage 3: Moderate kidney damage GFR 30-59 Stage 4: Severe kidney damage GFR 15-29 Stage 5: Severe kidney damage GFR <15 ESRD - chronic treatment by dialysis or transplant Lactic AcidOrdered By: Beatriz Nash on 01-30-2021 Lactate [Moles/Vol] 0.6 mmol/L 0.5 - 2. 2 mmol/L [facility] [employer] Work Phone: [facility] Work Phone: LipaseOrdered By: David dalton on 01-30-2021 Lipase [Catalytic activity/Vol] 30 U/L 13 - 60 U/L [facility] [employer] Work Phone: Microscopic UrinalysisOrdere d By: David Nash on 01-30-2021 - [facility] Work Phone: Amorphous, UA NOT REPORTED None [facility] [place] Work Phone: Bacteria, UA TRACE Abnormal None [facility] Work Phone: Casts UA NOT REPORTED /LPF [facility] Work Phone: Crystals, UA NOT REPORTED None /HPF [facility] Work Phone: Epithelial Cells UA 2 TO 5 [facility] Work Phone: Interpretation and review of laboratory results Abnormal [facility] Work Phone: Mucus, UA NOT REPORTED None [facility] Work Phone: Other Observations UA NOT REPORTED NOT REQ. M [facility] Work Phone: RBC, UA 0 TO [address] [facility] Work Phone: Renal Epithelial, UA NOT REPORTED 0 /HPF Me [facility] Work Phone: Trichomonas, UA NOT REPORTED None [facility] Work Phone: WBC, UA 2 TO [address] [facility] Work Phone: Yeast, UA NOT REPORTED None [facility] Work Phone: [facility] Work Phone: No Panel InformationOrdered By: David Nash on 01-30-[address] [facility] [employer] Work Phone: Protime-INROrdered By: Linda Mckeon on 01-30-2021 INR Coag (Bld) [Relative time] 1.1 {INR} [facility] [employer] Work Phone: Comment on above: Therapeutic Range: Moderate Anticoagulant Intensity: INR = 2.0-3.0 High Anticoagulant Intensity: INR = 2.5-3.5 PT Coag (PPP) [Time] 11.4 s [facility] [employer] Work Phone: [facility] [employer] Work Phone: Urinalysis, reflex to micros copicOrdered By: David Nash on 01-30-2021 Bilirubin Urine SMALL Abnormal NEGATIVE [facility] Work Phone: Color, UA YELLOW YELLOW [facility] [employer] Work Phone: Glucose, Ur Negative NEGATIVE [facility] [employer] Work Phone: Interpretation and review of laboratory results Abnormal [facility] [employer] Work Phone: Ketones Ql (U) 4+ Abnormal NEGATIVE [facility] Work Phone: Leukocyte esterase Test strip Ql (U) Negative NEGATIVE [facility] [employer] Work Phone: Nitrite, Urine Negative NEGATIVE [facility] Work Phone: pH, UA 5.[address] [facility] [employer] Work Phone: Protein, UA Negative NEGATIVE [facility] [employer] Work Phone: Specific [place], UA <1.005 Low [facility] [employer] Work Phone: Turbidity UA CLEAR CLEAR [facility] [employer] Work Phone: Urinalysis Comments NOT REPORTED [facility] [employer] Work Phone: Urine Hgb Negative NEGATIVE [facility] [employer] Work Phone: Urobilinogen, Urine Normal Normal [facility] [employer] Work Phone: [employer] Phone: Basic Metabolic PanelOrdered By: Gamaliel Harris on 01-08-2021 Anion gap [Moles/Vol] 11 mmol/L 9 - 17 mmol/L [employer] Phone: Calcium [Mass/Vol] 9.1 mg/dL 8.6 - 10. 4 mg/dL [employer] Phone: Chloride [Moles/Vol] 105 mmol/L 98 - 10 7 mmol/L [employer] Phone: CO2 [Moles/Vol] 23 mmol/L 20 - 31 mmol/L [employer] Phone: Creatinine [Mass/Vol] 0.57 mg/dL 0.50 - 0.90 mg/dL [employer] Phone: GFR >60 >60 mL/min apprupt Phone: GFR Non- >60 >60 mL/min [facility] Phone: GFR/1.73 sq M.predicted MDRD (S/P/Bld) [Vol rate/Area] [employer] Phone: Comment on above: Average GFR for 30-3 9 years old: 107 mL/min/1.73sq m Chronic Kidney Disease: <60 mL/min/1.73sq m Kidney failure: <15 mL/min/1.73sq m eGFR calculated using average adult body mass. Additional eGFR calculator available at: http://www.Ofelia Feliz.Evolve IP/multiple_crcl_2012.htm GFR/1.73 sq M.predicted MDRD (S/P/Bld) [Vol rate/Area] NOT REPORTED [facility] Phone: Glucose [Mass/Vol] 106 mg/dL High 70 - 99 mg/dL [employer] Phone: Interpretation and review of laboratory results Abnormal [facility] Phone: Potassium [Moles/Vol] 3.7 mmol/L 3.7 - 5.3 mmol/L [employer] Phone: Sodium [Moles/Vol] 139 mmol/L 135 - 144 mmol/L [employer] Phone: Urea nitrogen (BldV) [Mass/Vol] 7 mg/dL 6 - 20 mg/dL [employer] Phone: Urea nitrogen/Creatinine (Bld) [Mass ratio] NOT REPORTED [facility] Phone: CBCOrdered By: Gamaliel castillo on 01-08-2021 Hematocrit (Bld) [Volume fraction] 38.0 % 36.3 - 47.1 % [employer] Phone: Hemoglobin.gastrointe stinal spec 1 Ql (Stl) 12.2 g/dL 11.9 - 15.1 g/dL [employer] Phone: Interpretation and review of laboratory results Abnormal [facility] Phone: MCH (RBC) [Entitic mass] 30.4 pg 25.2 - 33.5 pg [employer] Phone: MCHC (RBC) [Mass/Vol] 32.1 g/dL 28.4 - 34.8 g/dL [employer] Phone: MCV (RBC) [Entitic vol] 94.8 fL 82.6 - 102.9 fL [employer] Phone: NRBC Automated 0.0 0.0 per 100 WBC [employer] Phone: Platelet distribution width (Bld) [Ratio] 13.5 % 11.8 - 14.4 % [employer] Phone: Platelet mean volume (Bld) [Entitic vol] 11.4 fL 8.1 - 13.5 fL [employer] Phone: Platelets (Bld) [#/Vol] 304 10*3/uL [employer] Phone: RBC (Bld) [#/Vol] 4.01 10*6/uL 3.95 - 5.1 1 m/uL [employer] Phone: WBC (Bld) [#/Vol] 18.0 10*3/uL High [employer] Phone: FL ESOPHAGRAMOrdered By: Yadi Harris on 01-08-2021 No evidence of postoperative leak. [facility] Phone: EXAMINATION: SINGLE CONTRAST ESOPHAGRAM 01/08/2021 HISTORY: [...] KUB/radiographs to assess progression as clinically warranted. [facility] Phone: Dario, pn Incoming Radiant Results From [employer] - 01/08/2021 12:29 PM EDT EXAMINATION: SINGLE [...] warranted. IMPRESSION: No evidence of postoperative leak. [facility] Phone: Basic Metabolic PanelOrdered By: Gamaliel Harris on 01-07-2021 Anion gap [Moles/Vol] 10 mmol/L 9 - 17 mmol/L [employer] Phone: Calcium [Mass/Vol] 8.8 mg/dL 8.6 - 10. 4 mg/dL [employer] Phone: Chloride [Moles/Vol] 105 mmol/L 98 - 10 7 mmol/L [employer] Phone: CO2 [Moles/Vol] 20 mmol/L 20 - 31 mmol/L [employer] Phone: Creatinine [Mass/Vol] 0.68 mg/dL 0.50 - 0.90 mg/dL [employer] Phone: GFR >60 >60 mL/min apprupt Phone: GFR Non- >60 >60 mL/min [employer] Phone: GFR/1.73 sq M.predicted MDRD (S/P/Bld) [Vol rate/Area] [employer] Phone: Comment on above: Average GFR for 30-3 9 years old: 107 mL/min/1.73sq m Chronic Kidney Disease: <60 mL/min/1.73sq m Kidney failure: <15 mL/min/1.73sq m eGFR calculated using average adult body mass. Additional eGFR calculator available at: http://www.SeeWhy/multiple_crcl_2012.htm GFR/1.73 sq M.predicted MDRD (S/P/Bld) [Vol rate/Area] NOT REPORTED [facility] Phone: Glucose [Mass/Vol] 215 mg/dL High 70 - 99 mg/dL [employer] Phone: Interpretation and review of laboratory results Abnormal [employer] Phone: Potassium [Moles/Vol] 4.2 mmol/L 3.7 - 5.3 mmol/L [employer] Phone: Sodium [Moles/Vol] 135 mmol/L 135 - 144 mmol/L [employer] Phone: Urea nitrogen (BldV) [Mass/Vol] 14 mg/dL 6 - 20 mg/dL [employer] Phone: Urea nitrogen/Creatinine (Bld) [Mass ratio] NOT REPORTED [employer] Phone: CBC without DiffOrdered By: Gamaliel Harris on 01-07-2021 Hematocrit (Bld) [Volume fraction] 38.3 % 36.3 - 47.1 % [employer] Phone: Hemoglobin.gastrointe stinal spec 1 Ql (Stl) 12.5 g/dL 11.9 - 15.1 g/dL [employer] Phone: Interpretation and review of laboratory results Abnormal [employer] Phone: MCH (RBC) [Entitic mass] 30.9 pg 25.2 - 33.5 pg [employer] Phone: MCHC (RBC) [Mass/Vol] 32.6 g/dL 28.4 - 34.8 g/dL [employer] Phone: MCV (RBC) [Entitic vol] 94.8 fL 82.6 - 102.9 fL [employer] Phone: NRBC Automated 0.0 0.0 per 100 WBC [facility] Phone: Platelet distribution width (Bld) [Ratio] 13.4 % 11.8 - 14.4 % [employer] Phone: Platelet mean volume (Bld) [Entitic vol] 11.2 fL 8.1 - 13.5 fL [employer] Phone: Platelets (Bld) [#/Vol] 373 10*3/uL [employer] Phone: RBC (Bld) [#/Vol] 4.04 10*6/uL 3.95 - 5.1 1 m/uL [employer] Phone: WBC (Bld) [#/Vol] 24.9 10*3/uL High [employer] Phone: POCT urine pregnancyOrdered By: Gamaliel Harris on 01-07-2021 Beta HCG ( test) Ql (U) Negative NEGATIVE [facility]: Comment on above: Specimens with hCG l evels near the threshold of the test (25 mIU/mL) may give a negative or indeterminate result. In such cases, another test should be performed with a new specimen in 48-72 hours. If early is suspected clinically in this setting, correlation with quantitative serum b-hCG level is suggested. [id number] 01-04-2021 SARS-CoV-2 (COVID-19) RNA JOSÉ MIGUEL+probe Ql (Unsp spec) Normal [facility] Comment on above: Performed By: #### C OVID #### [facility] [address], [place] [id number] Production Ski Repairer: Wei Reyna MD [facility] [address], [place] [id number] Production Ski Repairer: Harpal Adair MD SARS-CoV-2 (COVID-19) RNA JOSÉ MIGUEL+probe Ql (Unsp spec) Not detected Normal NOTDET [facility] Comment on above: Result Comment: The specimen is NEGATIVE for SARS-CoV-2, the novel coronavirus associated with COVID-19. A negative result does not rule out COVID-19. [employer] SARS-CoV-2 for use on the [employer] is a real-time RT-PCR test intended [...] this assay. Fact sheet for Healthcare Providers: https://www.fda.gov/media/980818/download Fact sheet for Patients: https://www.fda.gov/media/927735/download METHODOLOGY: RT-PCR Performed By: #### C OVID #### [facility] [address] [place] [address] Production Ski Repairer: Wei Reyna MD [address] [id number] Production Ski Repairer: Harpal Adair MD [id number] 01-03-2021 SARS-CoV-2 (COVID-19) RNA JOSÉ MIGUEL+probe Ql (Unsp spec) .NASOPHARYNGEAL SWAB Normal [facility] Comment on above: Performed By: #### C OVID #### [facility] [address] [place] [address] Production Ski Repairer: Wei Reyna MD [address] [id number] Production Ski Repairer: Harpal Adair MD Nicotine, BloodOrdered By: Jose Harris on 12-26-2020 2-QL-Yfifbisf <2 ng/mL [facility] [employer] Work Phone: Cotinine <2 ng/mL [facility] [employer] Work Phone: Nicotine <2 ng/mL [facility] [employer] Work Phone: Comment on above: (NOTE) Consistent [...] developed and its performance characteristics determined by [facility]. It has not been cleared or approved by the US Food and Drug Administration. This test was performed in a CLIA certified laboratory and is intended for clinical purposes. Performed By: [facility] [address] [place] [id number] Apparatus Cleaner: Brissa Bonilla MD EKG 12 LeadOrdered By: Enmanuel Harris on 12-25-2020 Atrial Rate 70 BPM [employer] Phone: P [place] 20 degrees [employer] Phone: P-R Interval 176 ms [employer] Phone: Q-T Interval 414 ms [employer] Phone: QRS Duration 88 ms [employer] Phone: QTc Calculation (Bazett) 447 ms [employer] Phone: R [place] 7 degrees [employer] Phone: T [place] 8 degrees [employer] Phone: Ventricular Rate 70 BPM [employer] Work Phone: Normal sinus rhythm Normal ECG No previous ECGs available [facility] Phone: Dario, Mhpn Incoming E kg Results From [employer] - 12/25/2020 12:47 PM EDT Normal sinus rhythm Normal ECG No previous ECGs available [employer] Phone: APTTOrdered By: Gamaliel horvath on 12-24-2020 aPTT Coag (Bld) [Time] 23.1 s [employer] Phone: Comment on above: IV Heparin Therapy Range: 48.6-77.8 Basic Metabolic PanelOrdered By: Gamaliel Harris on 12-24-2020 Anion gap [Moles/Vol] 10 mmol/L 9 - 17 mmol/L [employer] Phone: Calcium [Mass/Vol] 9.4 mg/dL 8.6 - 10. 4 mg/dL [employer] Phone: Chloride [Moles/Vol] 106 mmol/L 98 - 10 7 mmol/L [employer] Phone: CO2 [Moles/Vol] 23 mmol/L 20 - 31 mmol/L [employer] Phone: Creatinine [Mass/Vol] 0.56 mg/dL 0.50 - 0.90 mg/dL [employer] Phone: GFR >60 >60 mL/min [employer]rupt Phone: GFR Non- >60 >60 mL/min [facility] Phone: GFR/1.73 sq M.predicted MDRD (S/P/Bld) [Vol rate/Area] [employer] Phone: Comment on above: Average GFR for 30-3 9 years old: 107 mL/min/1.73sq m Chronic Kidney Disease: <60 mL/min/1.73sq m Kidney failure: <15 mL/min/1.73sq m eGFR calculated using average adult body mass. Additional eGFR calculator available at: http://www.Ofelia Feliz.Evolve IP/multiple_crcl_2012.htm GFR/1.73 sq M.predicted MDRD (S/P/Bld) [Vol rate/Area] NOT REPORTED [facility] Phone: Glucose [Mass/Vol] 86 mg/dL 70 - 99 mg/dL [employer] Phone: Potassium [Moles/Vol] 3.8 mmol/L 3.7 - 5.3 mmol/L [employer] Phone: Sodium [Moles/Vol] 139 mmol/L 135 - 144 mmol/L [employer] Phone: Urea nitrogen (BldV) [Mass/Vol] 12 mg/dL 6 - 20 mg/dL [employer] Phone: Urea nitrogen/Creatinine (Bld) [Mass ratio] NOT REPORTED [employer] Phone: CBCOrdered By: Gamaliel castillo on 12-24-2020 Hematocrit (Bld) [Volume fraction] 41.2 % 36.3 - 47.1 % [employer] Phone: Hemoglobin.gastrointe stinal spec 1 Ql (Stl) 13.4 g/dL 11.9 - 15.1 g/dL [employer] Phone: MCH (RBC) [Entitic mass] 30.5 pg 25.2 - 33.5 pg [employer] Phone: MCHC (RBC) [Mass/Vol] 32.5 g/dL 28.4 - 34.8 g/dL [employer] Phone: MCV (RBC) [Entitic vol] 93.6 fL 82.6 - 102.9 fL [employer] Phone: NRBC Automated 0.0 0.0 per 100 WBC [employer] Phone: Platelet distribution width (Bld) [Ratio] 13.2 % 11.8 - 14.4 % [employer] Phone: Platelet mean volume (Bld) [Entitic vol] 10.7 fL 8.1 - 13.5 fL [employer] Phone: Platelets (Bld) [#/Vol] 391 10*3/uL [employer] Phone: RBC (Bld) [#/Vol] 4.40 10*6/uL 3.95 - 5.1 1 m/uL [employer] Phone: WBC (Bld) [#/Vol] 8.5 10*3/uL [employer] Phone: Protime-INROrdered By: Enmanuel Harris on 12-24-2020 INR Coag (Bld) [Relative time] 0.9 {INR} [employer] Phone: Comment on above: Therapeutic Range: Moderate Anticoagulant Intensity: INR = 2.0-3.0 High Anticoagulant Intensity: INR = 2.5-3.5 PT Coag (PPP) [Time] 10 s apprupt Phone: XR CHEST (2 VW)on 12-24-2020 No acute cardiopulmo nary findings [facility] Phone: EXAMINATION: TWO XRA Y VIEWS OF THE CHEST 12/24/2020 11:24 am COMPARISON: None. HISTORY: ORDERING SYSTEM PROVIDED HISTORY: preop gastric bypass [employer] TECHNOLOGIST PROVIDED HISTORY: preop gastric bypass [employer] Reason for Exam: no chest complaints FINDINGS: Normal cardiopericardial silhouette There are no significant mediastinal, pleural, parenchymal or osseous findings [facility] Phone: Dario, Mhpn Incoming Radiant Results From [employer] - 12/24/2020 11:30 AM EDT EXAMINATION: TWO XRAY VIEWS OF THE CHEST 12/24/2020 11:24 am COMPARISON: None. HISTORY: ORDERING SYSTEM PROVIDED HISTORY: preop gastric bypass [employer] TECHNOLOGIST PROVIDED HISTORY: preop gastric bypass [employer] Reason for Exam: no chest complaints FINDINGS: Normal cardiopericardial silhouette There are no significant mediastinal, pleural, parenchymal or osseous findings IMPRESSION: No acute cardiopulmonary findings [facility] Phone: XR CHEST (2 VW)Ordered By: Jose Harris on 12-24-2020 No acute cardiopulmo nary findings [facility] Phone: EXAMINATION: TWO XRA Y VIEWS OF THE CHEST 12/24/2020 11:24 am COMPARISON: None. HISTORY: ORDERING SYSTEM PROVIDED HISTORY: preop gastric bypass [employer] TECHNOLOGIST PROVIDED HISTORY: preop gastric bypass [employer] Reason for Exam: no chest complaints FINDINGS: Normal cardiopericardial silhouette There are no significant mediastinal, pleural, parenchymal or osseous findings [facility] Phone: Dario, pn Incoming Radiant Results From [employer] - 12/24/2020 11:30 AM EDT EXAMINATION: TWO XRAY VIEWS OF THE CHEST 12/24/2020 11:24 am COMPARISON: None. HISTORY: ORDERING SYSTEM PROVIDED HISTORY: preop gastric bypass [employer] TECHNOLOGIST PROVIDED HISTORY: preop gastric bypass [employer] Reason for Exam: no chest complaints FINDINGS: Normal cardiopericardial silhouette There are no significant mediastinal, pleural, parenchymal or osseous findings IMPRESSION: No acute cardiopulmonary findings [facility] Phone: FL UGI W AIR CONTRASTon 10-15 Intermittent signifi cant spontaneous GE reflux. Otherwise unremarkable double-contrast upper GI and esophagram. [facility] Phone: EXAMINATION: DOUBLE CONTRAST UPPER GI SERIES [...] The duodenal bulb and sweep are normal. [facility] Phone: Dario, pn Incoming Radiant Results From [employer] - 11/01/2020 5:21 PM EST EXAMINATION: DOUBLE [...] Otherwise unremarkable double-contrast upper GI and esophagram. [facility] Work Phone: COVID-19on 09-25-2020 SARS-CoV-2 [place], [place] SARS-CoV-2 Not Detected Not Detected [place], [place] Comment on above: The specimen is NEGATIVE for SARS-CoV-2, the novel coronavirus associated with COVID-19. A negative result does not rule out COVID-19. [employer] SARS-CoV-2 for use on the [employer] Systems is a real-time RT-PCR test intended [...] this assay. Fact sheet for Healthcare Providers: https://www.fda.gov/media/472879/download Fact sheet for Patients: https://www.fda.gov/media/558812/download METHODOLOGY: RT-PCR SARS-CoV-2, Rapid [place], [place] Source .NASOPHARYNGEAL SWAB [place], [place] Vital Signs Date Time Vital Sign Value Performing Clinician Facility 03-08-2024 15:02-0400 Diastolic blood pressure 78 mm[Hg] Alexis Shukla [facility] 03-08-2024 15:02-0400 Heart rate 65 /min Alexis Vazquez [facility] 03-08-2024 15:02-0400 Mean blood pressure 89 mm[Hg] Alexis Lopeze [facility] 03-08-2024 15:02-0400 SaO2% (BldA) [Mass fraction] 100 % Alexis Lopeze [facility] 03-08-2024 15:02-0400 Systolic blood pressure 110 mm[Hg] Alexis Lopeze [facility] 03-08-2024 14:00-0400 SaO2% (BldA) [Mass fraction] 99 % Alexis Lopeze [facility] 03-08-2024 13:37-0400 Body temperature 98.42 [degF] Alexis Lopeze [facility] 03-08-2024 13:37-0400 Diastolic blood pressure 82 mm[Hg] Alexis Lopeze [facility] 03-08-2024 13:37-0400 Heart rate 70 /min Alexis Lopeze [facility] 03-08-2024 13:37-0400 Respiratory rate 18 /min Alexis Lopeze [facility] 03-08-2024 13:37-0400 SaO2% (BldA) [Mass fraction] 100 % Alexis Lopeze [facility] 03-08-2024 13:37-0400 Systolic blood pressure 126 mm[Hg] Alexis Vazquez [facility] 03-08-2024 13:14-0400 Body temperature 98.24 [degF] Alexis Vazquez [facility] 03-08-2024 13:14-0400 Diastolic blood pressure 87 mm[Hg] Alexis Lopeze [facility] 03-08-2024 13:14-0400 Heart rate 67 /min Alexis Shukla [facility] 03-08-2024 13:14-0400 Respiratory rate 16 /min Alexis Shukla [facility] 03-08-2024 13:14-0400 Systolic blood pressure 135 mm[Hg] Alexis Shukla [facility] 03-08-2024 08:06-0400 Body height 170.2 cm Elia Baires DO Work Phone: [facility] 03-08-2024 08:06-0400 Body mass index (BMI) [Ratio] 30.9 kg/m2 Elia Baires DO Work Phone: [facility] 03-08-2024 08:06-0400 Body weight 89.5 kg Elia Baires DO Work Phone: [facility] 03-08-2024 08:06-0400 Diastolic blood pressure 72 mm[Hg] Elia Baires DO Work Phone: [facility] 03-08-2024 08:06-0400 Heart rate 82 /min Elia Baires DO Work Phone: [facility] 03-08-2024 08:06-0400 SaO2% (BldA) [Mass fraction] 100 % Elia Baires DO Work Phone: [facility] 03-08-2024 08:06-0400 Systolic blood pressure 114 mm[Hg] Elia Baires DO Work Phone: [facility] 01-04-2024 09:28-0400 Body height 170.2 cm Elia Baires DO Work Phone: [facility] 01-04-2024 09:28-0400 Body mass index (BMI) [Ratio] 31.96 kg/m2 Elia Baires DO Work Phone: [facility] 01-04-2024 09:28-0400 Body weight 92.55 kg Elia Baires DO Work Phone: [facility] 01-04-2024 [id number] Diastolic blood pressure 86 mm[Hg] Elia Baires DO Work Phone: [facility] 01-04-2024 09:28-0400 Heart rate 92 /min Elia Baires DO Work Phone: [facility] 01-04-2024 09:28-0400 SaO2% (BldA) [Mass fraction] 97 % Elia Baires DO Work Phone: [facility] 01-04-2024 [id number] Systolic blood pressure 123 mm[Hg] Elia Baires DO Work Phone: [facility] 12-31-2023 11:17-0400 Heart rate 76 /min DO Jennie Ames Work Phone: [facility] 12-31-2023 11:14-0400 Body temperature 98.2 [degF] DO Jennie Ames Work Phone: [facility] 12-31-2023 11:14-0400 Diastolic blood pressure 73 mm[Hg] DO Jennie Ames Work Phone: [facility] 12-31-2023 11:14-0400 Respiratory rate 18 /min DO Jennie Ames Work Phone: [facility] 12-31-2023 11:14-0400 SaO2% (BldA) [Mass fraction] 97 % DO Jennie Ames Work Phone: [facility] 12-31-2023 11:14-0400 Systolic blood pressure 138 mm[Hg] DO Jennie Ames Work Phone: [facility] 12-31-2023 11:13-0400 Body height 170.18 cm DO Jennie Ames Work Phone: [facility] 12-31-2023 11:13-0400 Body weight 89.35 kg DO Jennie Ames Work Phone: [facility] 12-24-2023 11:58-0400 Body height 170.18 cm DO Jennie Ames Work Phone: [facility] 12-24-2023 11:58-0400 Body temperature 97.8 [degF] DO Jennie Ames Work Phone: [facility] 12-24-2023 11:58-0400 Body weight 89 kg DO Jennie Ames Work Phone: [facility] 12-24-2023 11:58-0400 Diastolic blood pressure 91 mm[Hg] DO Jennie Ames Work Phone: [facility] 12-24-2023 11:58-0400 Heart rate 85 /min DO Jennie Ames Work Phone: [facility] 12-24-2023 11:58-0400 Respiratory rate 15 /min DO Jennie Ames Work Phone: [facility] 12-24-2023 11:58-0400 SaO2% (BldA) [Mass fraction] 100 % DO Jennie Ames Work Phone: [facility] 12-24-2023 11:58-0400 Systolic blood pressure 137 mm[Hg] DO Jennie Ames Work Phone: [facility] 12-10-2023 12:35-0400 Heart rate 70 /min DO Jennie Ames Work Phone: [facility] 12-10-2023 12:35-0400 Respiratory rate 16 /min DO Jennie Ames Work Phone: [facility] 12-10-2023 12:35-0400 SaO2% (BldA) [Mass fraction] 98 % DO Jennie Ames Work Phone: [facility] 12-10-2023 12:08-0400 Body height 170.18 cm DO Jennie Ames Work Phone: [facility] 12-10-2023 12:08-0400 Body temperature 98 [degF] DO Jennie Ames Work Phone: [facility] 12-10-2023 12:08-0400 Body weight 89.8 kg DO Jennie Ames Work Phone: [facility] 12-10-2023 12:08-0400 Diastolic blood pressure 76 mm[Hg] DO Jennie Ames Work Phone: [facility] 12-10-2023 12:08-0400 Systolic blood pressure 123 mm[Hg] DO Jennie Ames Work Phone: [facility] 09-18-2023 08:49-0500 Diastolic blood pressure 72 mm[Hg] Gamaliel Harris DO Work Phone: [employer] 09-18-2023 08:49-0500 Heart rate 58 /min Gamaliel Harris DO Work Phone: [facility] [employer] 09-18-2023 08:49-0500 Respiratory rate 18 /min Gamaliel Harris DO Work Phone: [employer] 09-18-2023 08:49-0500 SaO2% (BldA) [Mass fraction] 100 % Gamaliel Harris DO Work Phone: [employer] 09-18-2023 08:49-0500 Systolic blood pressure 111 mm[Hg] Gamaliel Harris DO Work Phone: [employer] 09-18-2023 08:24-0500 Body temperature 97.11 [degF] Gamaliel Harris DO Work Phone: [employer] 09-18-2023 07:23-0500 Body height 170.2 cm Gamaliel Harris DO Work Phone: [employer] 09-18-2023 07:23-0500 Body mass index (BMI) [Ratio] 31.79 kg/m2 Gamaliel Harris DO Work Phone: [employer] 09-18-2023 07:23-0500 Body weight 92.08 kg Gamaliel Harris DO Work Phone: [facility] 08-15-2023 13:37-0500 Diastolic blood pressure 69 mm[Hg] DO Jennie Amse Work Phone: [facility] 08-15-2023 13:37-0500 Heart rate 70 /min DO Jennie Ames Work Phone: [facility] 08-15-2023 13:37-0500 Respiratory rate 18 /min DO Jennie Ames Work Phone: [facility] 08-15-2023 13:37-0500 SaO2% (BldA) [Mass fraction] 99 % DO Jennie Ames Work Phone: [facility] 08-15-2023 13:37-0500 Systolic blood pressure 107 mm[Hg] DO Jennie Ames Work Phone: [facility] 08-15-2023 11:29-0500 Body height 170.18 cm DO Jennie Ames Work Phone: [facility] 08-15-2023 11:29-0500 Body temperature 98.2 [degF] DO Jennie Ames Work Phone: [facility] 08-15-2023 11:29-0500 Body weight 86.18 kg DO Jennie Ames Work Phone: [facility] 08-14-2023 16:43-0500 Body height 170.18 cm DO Jennie Ames Work Phone: [facility] 08-14-2023 16:43-0500 Body temperature 98.2 [degF] DO Jennie Ames Work Phone: [facility] 08-14-2023 16:43-0500 Body weight 88.6 kg DO Jennie Ames Work Phone: [facility] 08-14-2023 16:43-0500 Diastolic blood pressure 66 mm[Hg] DO Jennie Ames Work Phone: [facility] 08-14-2023 16:43-0500 Heart rate 80 /min DO Jennie Ames Work Phone: [facility] 08-14-2023 16:43-0500 Respiratory rate 18 /min DO Jennie Ames Work Phone: [facility] 08-14-2023 16:43-0500 SaO2% (BldA) [Mass fraction] 98 % DO Jennie Ames Work Phone: [facility] 08-14-2023 16:43-0500 Systolic blood pressure 118 mm[Hg] DO Jennie Ames Work Phone: [facility] 08-13-2023 11:15-0500 Body height 170.18 cm Imad Asaad Other [employer] Other 08-13-2023 11:15-0500 Body mass index (BMI) [Ratio] 30.54 kg/m2 Imad Asaad Other [employer] Other 08-13-2023 11:15-0500 Body weight 88.45 kg Imad Asaad Other [employer] Other 08-13-2023 11:15-0500 Diastolic blood pressure 84 mm[Hg] Imad Asaad Other [employer] Other 08-13-2023 11:15-0500 Systolic blood pressure 133 mm[Hg] Imad Asaad Other [employer] Other 07-08-2023 12:05-0400 Body height 170.18 cm Ania Javed Other [employer] Other 07-08-2023 12:05-0400 Body mass index (BMI) [Ratio] 30.22 kg/m2 Ania Javed Other [employer] Other 07-08-2023 12:05-0400 Body temperature 99 [degF] Ania Javed Other [employer] Other 07-08-2023 12:05-0400 Body weight 87.54 kg Ania Javed Other [employer] Other 07-08-2023 12:05-0400 Diastolic blood pressure 64 mm[Hg] Ania Javed Other [employer] Other 07-08-2023 12:05-0400 Respiratory rate 19 /min Ania Javed Other [employer] Other 07-08-2023 12:05-0400 SaO2% (BldA) [Mass fraction] 98 % Ania Javed Other [employer] Other 07-08-2023 12:05-0400 Systolic blood pressure 110 mm[Hg] Ania Javed Other [employer] Other 07-03-2023 11:05-0400 Diastolic blood pressure 80 mm[Hg] DO Jennie Ames Work Phone: [facility] 07-03-2023 11:05-0400 Heart rate 78 /min DO Jennie Ames Work Phone: [facility] 07-03-2023 11:05-0400 Respiratory rate 16 /min DO Jennie Ames Work Phone: [facility] 07-03-2023 11:05-0400 SaO2% (BldA) [Mass fraction] 99 % DO Jennie Ames Work Phone: [facility] 07-03-2023 11:05-0400 Systolic blood pressure 119 mm[Hg] DO Jennie Ames Work Phone: [facility] 07-03-2023 10:10-0400 Body height 170.18 cm DO Jennie Ames Work Phone: [facility] 07-03-2023 10:10-0400 Body temperature 98.7 [degF] DO Jennie Hameede Work Phone: [facility] 07-03-2023 10:10-0400 Body weight 86.9 kg DO Jennie Hameede Work Phone: [facility] 07-02-2023 14:06-0400 Body temperature 98.06 [degF] Bakari Chester [facility] 07-02-2023 14:06-0400 Diastolic blood pressure 78 mm[Hg] Bakari Chester [facility] 07-02-2023 14:06-0400 Heart rate 91 /min Bakari Henrik [facility] 07-02-2023 14:06-0400 Respiratory rate 18 /min Bakari Henrik [facility] 07-02-2023 14:06-0400 SaO2% (BldA) [Mass fraction] 100 % Bakari Henrik [facility] 07-02-2023 14:06-0400 Systolic blood pressure 121 mm[Hg] Bakari Henrik [facility] 01-15-2023 13:30-0400 Diastolic blood pressure 85 mm[Hg] Bakari Henrik [facility] 01-15-2023 13:30-0400 Heart rate 71 /min Bakari Henrik [facility] 01-15-2023 13:30-0400 Mean blood pressure 98 mm[Hg] Bakari Henrik [facility] 01-15-2023 13:30-0400 Respiratory rate 18 /min Bakari Henrik [facility] 01-15-2023 13:30-0400 SaO2% (BldA) [Mass fraction] 100 % Bakari Henrik [facility] 01-15-2023 13:30-0400 Systolic blood pressure 125 mm[Hg] Abkari Henrik [facility] 01-15-2023 12:30-0400 Diastolic blood pressure 99 mm[Hg] Bakari Henrik [facility] 01-15-2023 12:30-0400 Heart rate 78 /min Bakari Henrik [facility] 01-15-2023 12:30-0400 Mean blood pressure 107 mm[Hg] Bakari Henrik [facility] 01-15-2023 12:30-0400 Respiratory rate 18 /min Bakari Henrik [facility] 01-15-2023 12:30-0400 SaO2% (BldA) [Mass fraction] 100 % Bakari Henrik [facility] 01-15-2023 12:30-0400 Systolic blood pressure 122 mm[Hg] Bakari Henrik [facility] 01-15-2023 10:50-0400 Body temperature 98.42 [degF] Bakari Henrik [facility] 01-15-2023 10:50-0400 Diastolic blood pressure 74 mm[Hg] Bakari Henrik [facility] 01-15-2023 10:50-0400 Heart rate 77 /min Bakari Henrik [facility] 01-15-2023 10:50-0400 Mean blood pressure 92 mm[Hg] Bakari Chester [facility] 01-15-2023 10:50-0400 Respiratory rate 17 /min Bakari Chester [facility] 01-15-2023 10:50-0400 SaO2% (BldA) [Mass fraction] 99 % Bakari Chester [facility] 01-15-2023 10:50-0400 Systolic blood pressure 129 mm[Hg] Bakari Chester [facility] 12-05-2022 13:20-0400 Diastolic blood pressure 74 mm[Hg] Gal Das [facility] 12-05-2022 13:20-0400 Heart rate 58 /min Gal Das [facility] 12-05-2022 13:20-0400 Respiratory rate 18 /min Gal Das [facility] 12-05-2022 13:20-0400 SaO2% (BldA) [Mass fraction] 100 % Gal Das [facility] 12-05-2022 13:20-0400 Systolic blood pressure 110 mm[Hg] Gal Marinten [facility] 12-05-2022 12:00-0400 Heart rate 54 /min Gal Das [facility] 12-05-2022 12:00-0400 SaO2% (BldA) [Mass fraction] 100 % Gal Das [facility] 12-05-2022 11:59-0400 Diastolic blood pressure 72 mm[Hg] Gal Thiago [facility] 12-05-2022 11:59-0400 Mean blood pressure 84 mm[Hg] Gal Das [facility] 12-05-2022 11:59-0400 Systolic blood pressure 109 mm[Hg] Gal Das [facility] 12-05-2022 11:53-0400 Body temperature 97.52 [degF] Gal Das [facility] 12-05-2022 11:53-0400 Diastolic blood pressure 73 mm[Hg] Gal Das [facility] 12-05-2022 11:53-0400 Heart rate 59 /min Gal Das [facility] 12-05-2022 11:53-0400 Mean blood pressure 87 mm[Hg] Gal Das [facility] 12-05-2022 11:53-0400 Respiratory rate 14 /min Gal Das [facility] 12-05-2022 11:53-0400 SaO2% (BldA) [Mass fraction] 100 % Gal Das [facility] 12-05-2022 11:53-0400 Systolic blood pressure 115 mm[Hg] Gal aDs [facility] 12-05-2022 11:40-0400 Mean blood pressure 80 mm[Hg] Gal Das [facility] 12-05-2022 11:40-0400 Respiratory rate 18 /min Gal Das [facility] 12-05-2022 11:30-0400 Mean blood pressure 90 mm[Hg] Gal Das [facility] 12-05-2022 11:15-0400 Body temperature 97.34 [degF] Gal Das [facility] 12-05-2022 11:10-0400 Respiratory rate 18 /min Gal Das [facility] 12-05-2022 11:05-0400 Respiratory rate 21 /min Gal Das [facility] 12-05-2022 11:00-0400 Respiratory rate 11 /min Gal Das [facility] 12-05-2022 07:15-0400 Mean blood pressure 79 mm[Hg] Gal Das [facility] 12-05-2022 07:15-0400 Body temperature 97.88 [degF] Gal Das [facility] 12-05-2022 07:15-0400 Heart rate 72 /min Gal Das [facility] 12-05-2022 07:12-0400 Mean blood pressure 82 mm[Hg] Gal Das [facility] 11-21-2022 10:44-0500 Diastolic blood pressure 75 mm[Hg] Gal Das [facility] 11-21-2022 10:44-0500 Heart rate 67 /min Gal Das [facility] 11-21-2022 10:44-0500 Mean blood pressure 88 mm[Hg] Gal Das [facility] 11-21-2022 10:44-0500 Systolic blood pressure 112 mm[Hg] Gal Das [facility] 11-21-2022 10:44-0500 Heart rate 71 /min Gal Das [facility] 11-21-2022 10:44-0500 SaO2% (BldA) [Mass fraction] 100 % Gal Das [facility] 11-21-2022 10:43-0500 Diastolic blood pressure 79 mm[Hg] Gal Das [facility] 11-21-2022 10:43-0500 Mean blood pressure 91 mm[Hg] Gal Das [facility] 11-21-2022 10:43-0500 Systolic blood pressure 116 mm[Hg] Gal Das [facility] 11-21-2022 10:43-0500 Respiratory rate 16 /min Gal Das [facility] 11-20-2022 08:09-0500 Body height 170.2 cm Eileen Manzano MD Work Phone: [facility] 11-20-2022 08:09-0500 Body weight 85.73 kg Eileen Manzano MD Work Phone: [facility] 11-20-2022 08:09-0500 Diastolic blood pressure 81 mm[Hg] Eileen Manzano MD Work Phone: [facility] 11-20-2022 08:09-0500 Heart rate 67 /min Eileen Manzano MD Work Phone: [facility] 11-20-2022 08:09-0500 SaO2% (BldA) [Mass fraction] 100 % Eileen Manzano MD Work Phone: [facility] 11-20-2022 08:09-0500 Systolic blood pressure 137 mm[Hg] Eileen Manzano MD Work Phone: [facility] 11-03-2022 12:57-0500 Blood Pressure Location Nakia Mcqueen [facility] 11-03-2022 12:57-0500 Body temperature 98.24 [degF] Nakia Mcqueen [facility] 11-03-2022 12:57-0500 Diastolic blood pressure 80 mm[Hg] Nakia Mcqueen [facility] 11-03-2022 12:57-0500 Heart rate 85 /min Nakia Mcqueen [facility] 11-03-2022 12:57-0500 SaO2% (BldA) [Mass fraction] 98 % Nakia Mcqueen [facility] 11-03-2022 12:57-0500 Systolic blood pressure 104 mm[Hg] Nakia Mcqueen [facility] 09-24-2022 06:57-0500 Blood Pressure Location Aimee Walker [facility] 09-24-2022 06:57-0500 Body temperature 98.24 [degF] Aimee Valadezell [facility] 09-24-2022 06:57-0500 Diastolic blood pressure 64 mm[Hg] Aimee Valadezell [facility] 09-24-2022 06:57-0500 Heart rate 77 /min Aimee Valadezell [facility] 09-24-2022 06:57-0500 SaO2% (BldA) [Mass fraction] 99 % Aimeeerin Valadezell [facility] 09-24-2022 06:57-0500 Systolic blood pressure 118 mm[Hg] Aimee Walker [facility] 08-22-2022 10:31-0500 Blood Pressure Location Rahul Salinas [facility] 08-22-2022 10:31-0500 Body temperature 98.06 [degF] Rahul Salinas [facility] 08-22-2022 10:31-0500 Diastolic blood pressure 76 mm[Hg] [facility] 08-22-2022 10:31-0500 Heart rate 95 /min Rahul Rita [facility] 08-22-2022 10:31-0500 SaO2% (BldA) [Mass fraction] 98 % [facility] 08-22-2022 10:31-0500 Systolic blood pressure 110 mm[Hg] [facility] 08-19-2022 09:45-0500 Diastolic blood pressure 69 mm[Hg] DO Jennie Ames Work Phone: [facility] 08-19-2022 09:45-0500 Heart rate 82 /min DO Jennie Ames Work Phone: [facility] 08-19-2022 09:45-0500 Respiratory rate 16 /min DO Jennie Ames Work Phone: [facility] 08-19-2022 09:45-0500 SaO2% (BldA) [Mass fraction] 95 % DO Jennie Ames Work Phone: [facility] 08-19-2022 09:45-0500 Systolic blood pressure 104 mm[Hg] DO Jennie Ames Work Phone: [facility] 08-19-2022 07:41-0500 Body height 170.18 cm DO Jennie Ames Work Phone: [facility] 08-19-2022 07:41-0500 Body weight 83.6 kg DO Jennie Ames Work Phone: [facility] 08-18-2022 17:26-0500 Body temperature 98.06 [degF] Alexis Shukla [facility] 08-18-2022 17:26-0500 Diastolic blood pressure 83 mm[Hg] Alexis Lopeze [facility] 08-18-2022 17:26-0500 Heart rate 84 /min Alexis Vazquez [facility] 08-18-2022 17:26-0500 Respiratory rate 18 /min Alexis Shukla [facility] 08-18-2022 17:26-0500 SaO2% (BldA) [Mass fraction] 98 % Alexis Shukla [facility] 08-18-2022 17:26-0500 Systolic blood pressure 120 mm[Hg] Alexis Shukla [facility] 08-12-2022 15:50-0500 Body temperature 97.9 [degF] DO Jennie Ames Work Phone: [facility] 08-12-2022 15:50-0500 Diastolic blood pressure 83 mm[Hg] DO Jennie Ames Work Phone: [facility] 08-12-2022 15:50-0500 Heart rate 64 /min DO Jennie Ames Work Phone: [facility] 08-12-2022 15:50-0500 Respiratory rate 20 /min DO Jennie Ames Work Phone: [facility] 08-12-2022 15:50-0500 SaO2% (BldA) [Mass fraction] 100 % DO Jennie Ames Work Phone: [facility] 08-12-2022 15:50-0500 Systolic blood pressure 136 mm[Hg] DO Jennie Ames Work Phone: [facility] 08-12-2022 11:00-0500 Body height 170.18 cm DO Jennie Ames Work Phone: [facility] 08-12-2022 06:00-0500 Body weight 88.1 kg DO Jennie Ames Work Phone: [facility] 08-08-2022 10:30-0500 Diastolic blood pressure 76 mm[Hg] Bakari Chester [facility] 08-08-2022 10:30-0500 Heart rate 58 /min Bakari Henrik [facility] 08-08-2022 10:30-0500 Mean blood pressure 88 mm[Hg] Bakari Henrik [facility] 08-08-2022 10:30-0500 Respiratory rate 20 /min Bakari Henrik [facility] 08-08-2022 10:30-0500 SaO2% (BldA) [Mass fraction] 100 % Bakari Chester [facility] 08-08-2022 10:30-0500 Systolic blood pressure 112 mm[Hg] Bakari Chester [facility] 08-08-2022 10:00-0500 Diastolic blood pressure 86 mm[Hg] Bakari Chester [facility] 08-08-2022 10:00-0500 Heart rate 64 /min Bakari Henrik [facility] 08-08-2022 10:00-0500 Mean blood pressure 97 mm[Hg] Bakari Chester [facility] 08-08-2022 10:00-0500 Systolic blood pressure 120 mm[Hg] Bakari Chester [facility] 08-08-2022 09:13-0500 gluc 98 mg/dL Bakari Chester [facility] 08-08-2022 09:13-0500 gluc Bakari Chester [facility] 08-08-2022 09:06-0500 Body temperature 97.7 [degF] Bakari Chester [facility] 08-08-2022 09:06-0500 Diastolic blood pressure 87 mm[Hg] Bakari Chester [facility] 08-08-2022 09:06-0500 Heart rate 79 /min Bakari Chester [facility] 08-08-2022 09:06-0500 Respiratory rate 18 /min Bakari Chester [facility] 08-08-2022 09:06-0500 SaO2% (BldA) [Mass fraction] 100 % Bakari Chester [facility] 08-08-2022 09:06-0500 Systolic blood pressure 127 mm[Hg] Bakari Chester [facility] 07-21-2022 10:50-0500 Blood Pressure Location Aimee Aaron [facility] 07-21-2022 10:50-0500 Body temperature 97.7 [degF] Aimee Walker [facility] 07-21-2022 10:50-0500 Diastolic blood pressure 72 mm[Hg] Aimee Valadezell [facility] 07-21-2022 10:50-0500 Heart rate 74 /min Aimee Walker [facility] 07-21-2022 10:50-0500 SaO2% (BldA) [Mass fraction] 99 % Aimee Valadezell [facility] 07-21-2022 10:50-0500 Systolic blood pressure 128 mm[Hg] Aimee Valadezell [facility] 05-13-2022 10:09-0400 Diastolic blood pressure 74 mm[Hg] Alexis Rivers [facility] [place] 05-13-2022 10:09-0400 Heart rate 68 /min Alexis Rivers [facility] [place] 05-13-2022 10:09-0400 Systolic blood pressure 112 mm[Hg] Alexis Rivers [facility] 04-21-2022 09:39-0400 Blood Pressure Location Aimeeerin Valadezell [facility] 04-21-2022 09:39-0400 Body temperature 98.24 [degF] Aimee Walker [facility] 04-21-2022 09:39-0400 Diastolic blood pressure 72 mm[Hg] Aimee Walker [facility] 04-21-2022 09:39-0400 Heart rate 94 /min Aimeeerin Valadezell [facility] 04-21-2022 09:39-0400 SaO2% (BldA) [Mass fraction] 100 % Aimeeerin Valadezell [facility] 04-21-2022 09:39-0400 Systolic blood pressure 112 mm[Hg] Aimee Walker [facility] 04-20-2022 14:56-0400 Body temperature 98.24 [degF] [facility] 04-20-2022 14:56-0400 Diastolic blood pressure 72 mm[Hg] [facility] 04-20-2022 14:56-0400 Heart rate 69 /min [facility] 04-20-2022 14:56-0400 Respiratory rate 18 /min [facility] 04-20-2022 14:56-0400 SaO2% (BldA) [Mass fraction] 99 % [facility] 04-20-2022 14:56-0400 Systolic blood pressure 111 mm[Hg] [facility] 04-03-2022 19:17-0400 Hourly Rounding Kaylinn Dokken [facility] 04-03-2022 19:17-0400 Promise to Return Kaylinn Dokken [facility] 04-03-2022 19:15-0400 Diastolic blood pressure 71 mm[Hg] Kaylinn Dokken [facility] 04-03-2022 19:15-0400 Heart rate 63 /min Kaylinn Dokken [facility] 04-03-2022 19:15-0400 Mean blood pressure 82 mm[Hg] Kaylinn Dokken [facility] 04-03-2022 19:15-0400 Respiratory rate 18 /min Kaylinn Dokken [facility] 04-03-2022 19:15-0400 SaO2% (BldA) [Mass fraction] 100 % Kaylinn Dokken [facility] 04-03-2022 19:15-0400 Systolic blood pressure 105 mm[Hg] Kaylinn Dokken [facility] 04-03-2022 17:09-0400 Body temperature 98.06 [degF] Kaylinn Dokken [facility] 04-03-2022 17:09-0400 Diastolic blood pressure 83 mm[Hg] Kaylinn Dokken [facility] 04-03-2022 17:09-0400 Heart rate 87 /min Larry Baker [facility] 04-03-2022 17:09-0400 Respiratory rate 18 /min Larry Gregorioen [facility] 04-03-2022 17:09-0400 SaO2% (BldA) [Mass fraction] 99 % Larry Baker [facility] 04-03-2022 17:09-0400 Systolic blood pressure 119 mm[Hg] Larry Gregorioen [facility] 02-06-2022 09:06-0400 Blood Pressure Location Aimeeerin Valadezell [facility] 02-06-2022 09:06-0400 Body temperature 97.52 [degF] Aimee Walker [facility] 02-06-2022 09:06-0400 Diastolic blood pressure 72 mm[Hg] Aimee Walker [facility] 02-06-2022 09:06-0400 Heart rate 81 /min Aimee Walker [facility] 02-06-2022 09:06-0400 SaO2% (BldA) [Mass fraction] 100 % Aimee Walker [facility] 02-06-2022 09:06-0400 Systolic blood pressure 130 mm[Hg] Aimee Walker [facility] 01-29-2022 10:31-0400 Blood Pressure Location Aimee Walker [facility] 01-29-2022 10:31-0400 Body temperature 97.16 [degF] Aimee Valadezell [facility] 01-29-2022 10:31-0400 Diastolic blood pressure 76 mm[Hg] Aimee Valadezell [facility] 01-29-2022 10:31-0400 Heart rate 94 /min Aimee Valadezell [facility] 01-29-2022 10:31-0400 SaO2% (BldA) [Mass fraction] 98 % Aimee Walker [facility] 01-29-2022 10:31-0400 Systolic blood pressure 118 mm[Hg] Aimee Valadezell [facility] 02-01-2021 07:15-0400 Body temperature 97.7 [degF] Berry Lawson MD Work Phone: [employer] Work Phone: 02-01-2021 07:15-0400 Diastolic blood pressure 63 mm[Hg] Berry Lawson MD Work Phone: [employer] Work Phone: 02-01-2021 07:15-0400 Heart rate 82 /min Berry Lawson MD Work Phone: [employer] Work Phone: 02-01-2021 07:15-0400 Respiratory rate 18 /min Berry Lawson MD Work Phone: [employer] Work Phone: 02-01-2021 07:15-0400 SaO2% (BldA) [Mass fraction] 98 % Berry Lawson MD Work Phone: [employer] Work Phone: 02-01-2021 07:15-0400 Systolic blood pressure 110 mm[Hg] Berry Lawson MD Work Phone: [employer] Work Phone: 01-30-2021 16:54-0400 Body height 170.2 cm Berry Lawson MD Work Phone: [employer] Work Phone: 01-30-2021 16:54-0400 Body mass index (BMI) [Ratio] 38.53 kg/m2 Berry Lawson MD Work Phone: [employer] Work Phone: 01-30-2021 16:54-0400 Body weight 111.58 kg Berry Lawson MD Work Phone: [employer] Work Phone: 01-30-2021 14:27-0400 Diastolic blood pressure 66 mm[Hg] David Nash MD Work Phone: [employer] Work Phone: 01-30-2021 14:27-0400 Heart rate 93 /min David Nash MD Work Phone: [employer] Work Phone: 01-30-2021 14:27-0400 Respiratory rate 16 /min David Nash MD Work Phone: [employer] Work Phone: 01-30-2021 14:27-0400 SaO2% (BldA) [Mass fraction] 98 % David Nash MD Work Phone: [employer] Work Phone: 01-30-2021 14:27-0400 Systolic blood pressure 107 mm[Hg] David Nash MD Work Phone: [employer] Work Phone: 01-30-2021 09:51-0400 Body temperature 97.2 [degF] David Nash MD Work Phone: [employer] Work Phone: 01-26-2021 09:00-0400 Body temperature 98.2 [degF] Gamaliel Harris DO Work Phone: [employer] Phone: 01-26-2021 09:00-0400 Diastolic blood pressure 77 mm[Hg] Gamaliel Harris DO Work Phone: [employer] Work Phone: 01-26-2021 09:00-0400 Heart rate 90 /min Gamaliel Harris [employer] Work Phone: [employer] Phone: 01-26-2021 09:00-0400 Respiratory rate 16 /min Gamaliel Harris [employer] Work Phone: [employer] Work Phone: 01-26-2021 09:00-0400 SaO2% (BldA) [Mass fraction] 96 % Gamaliel Harris [employer] Work Phone: [employer] Work Phone: 01-26-2021 09:00-0400 Systolic blood pressure 111 mm[Hg] Gamalielkemar Harris [employer] Work Phone: [employer] Phone: 01-08-2021 07:35-0400 Body temperature 97.81 [degF] Gamalielkemar Harris [employer] Work Phone: [employer] Work Phone: 01-08-2021 07:35-0400 SaO2% (BldA) [Mass fraction] 97 % Gamaliel Harris [employer] Work Phone: [employer] Phone: 01-08-2021 07:29-0400 Diastolic blood pressure 77 mm[Hg] Gamaliel Harris [employer] Work Phone: [employer] Phone: 01-08-2021 07:29-0400 Heart rate 87 /min Gamaliel Harris [employer] Work Phone: [employer] Phone: 01-08-2021 07:29-0400 Respiratory rate 18 /min Gamaliel Harris [employer] Phone: [employer] Phone: 01-08-2021 07:29-0400 Systolic blood pressure 123 mm[Hg] Gamaliel Harris [employer] Work Phone: [employer] Phone: 01-07-2021 06:29-0400 Body height 170.2 cm Gamaliel Harris [employer] Work Phone: [employer] Phone: 01-07-2021 06:29-0400 Body mass index (BMI) [Ratio] 40.68 kg/m2 Gamaliel Harris [employer] Work Phone: [employer] Phone: 01-07-2021 06:29-0400 Body weight 117.8 kg Gamaliel Harris [employer] Work Phone: [employer] Phone: 12-24-2020 10:33-0400 Body height 170.2 cm St[facility] 2 [employer] Phone: 12-24-2020 10:33-0400 Body mass index (BMI) [Ratio] 42.76 kg/m2 [facility] 2 [employer] Phone: 12-24-2020 10:33-0400 Body temperature 97.7 [degF] Stv 2 [employer] Phone: 12-24-2020 10:33-0400 Body weight 123.83 kg Stv 2 [employer] Phone: 12-24-2020 10:33-0400 Diastolic blood pressure 76 mm[Hg] [facility]v 2 [employer] Phone: 12-24-2020 10:33-0400 Heart rate 71 /min Stv 2 [employer] Phone: 12-24-2020 10:33-0400 Respiratory rate 18 /min Stv 2 [employer] Phone: 12-24-2020 10:33-0400 SaO2% (BldA) [Mass fraction] 98 % [facility] Phone: 12-24-2020 10:33-0400 Systolic blood pressure 115 mm[Hg] [facility] [employer] Phone: 09-28-2020 08:40-0500 BP Diastolic 75 mm[Hg] [employer] [place] 09-28-2020 08:40-0500 BP Systolic 117 mm[Hg] Gamaliel [employer] [place] 09-28-2020 08:40-0500 Pulse (Heart Rate) 84 /min Gamaliel Harris [employer] 09-28-2020 08:40-0500 Pulse Oximetry 100 % Gamaliel [employer], [place] 09-28-2020 08:25-0500 Body Temperature 96.8 [degF] Gamaliel Harris [employer], [place] 09-28-2020 08:25-0500 Respiratory Rate 23 /min Gamaliel Harris [employer] [place] 09-28-2020 07:07-0500 BMI (Body Mass Index) 45.66 kg/m2 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 Comment on above: CARMELINA LAN RN ( ED Utilization review per request of payer) Start: 05-11-2024 ambulatory Lindy Keen Facility :[facility] Start: 04-26-2024 ambulatory Elia mcdowell DO Work Phone: Family Medicine Start: 03-08-2024 End: 03-08-2024 Emergency department patient visit Alexis Shukla [facility] Start: 03-08-2024 End: 03-08-2024 Subsequent hospital visit by physician [facility] (Lg Bore/1.5t) Radiology MRI Comment on above: 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 ] Start: 03-08-2024 End: 03-08-2024 ambulatory ELIA BAIRES Facility:[facility] Start: 03-08-2024 End: 03-08-2024 Patient encounter procedure Eila Baires DO Work Phone: [facility] [place] Comment on above: Routine health maint enance [...] encounter status Elia Baires DO Work Phone: [facility] Work Phone: Start: 02-25-2024 End: 02-25-2024 ambulatory ELIA BAIRES Facility:[facility] Start: 01-13-2024 End: 01-14-2024 ambulatory MARII DASILVA [facility] Start: 01-05-2024 Telephone encounter Elia rob DO Work Phone: [facility] [place] Start: 01-04-2024 End: 01-04-2024 ambulatory ELIA BAIRES Facility:[facility] Start: 01-04-2024 End: 01-04-2024 Patient encounter procedure Elia Baires DO Work Phone: Family Medicine Comment on above: Panic disorder (Prim masoud Dx); Borderline personality disorder (HCC); Bipolar affective disorder in remission (HCC); Chronic alcoholism in remission (HCC); Routine health maintenance Start: 01-04-2024 End: 01-04-2024 Patient encounter status Elia Baires DO Work Phone: [facility] Start: 12-31-2023 End: 12-31-2023 Emergency department patient visit DO Jennie Ames Work Phone: [facility] Work Phone: Start: 12-25-2023 ambulatory SELF REFERRAL Facility: [facility] Start: 12-24-2023 End: 12-24-2023 Emergency department patient visit DO Jennie Ames Work Phone: [facility] Work Phone: Start: 2023 ambulatory Otto Larsen Facility:[facility] Start: 12-10-2023 End: 12-10-2023 Emergency department patient visit DO Jennie Ames Work Phone: [facility] Work Phone: Start: 12-09-2023 End: 12-09-2023 ambulatory Jennie Ames Facility:[facility] Start: 12-09-2023 End: 12-09-2023 Patient encounter procedure Jennie Ames [facility] Start: 10-23-2023 End: 10-26-2023 [facility] Start: 10-12-2023 End: 10-15-2023 ambulatory [facility] Start: 09-18-2023 End: 09-18-2023 ambulatory GAMALIEL Gastelum [facility] Start: 09-18-2023 End: 09-18-2023 Subsequent hospital visit by physician Gamaliel Harris DO Work Phone: [facility] Start: 08-31-2023 End: 09-01-2023 ambulatory HEYDIR Fallon GROSSMAN Facility:[facility] Start: 08-28-2023 End: 08-28-2023 ambulatory Imad Asaad Other [employer] Other Start: 08-28-2023 Telephone encounter Imad Asaad [employer] Economist Research Assistant Start: 08-18-2023 End: 08-21-2023 [facility] Start: 08-15-2023 End: 08-15-2023 Emergency department patient visit DO Jennie Ames Work Phone: [facility] Work Phone: Start: 08-14-2023 End: 08-14-2023 Emergency department patient visit DO Jennie Ames Work Phone: [facility] Work Phone: Start: 08-13-2023 End: 08-13-2023 ambulatory Imad Asaad Other [employer] Other Start: 08-13-2023 Office outpatient ne w 45 minutes Imad Asaad [facility] Start: 08-12-2023 End: 08-15-2023 ambulatory [facility] Start: 07-30-2023 End: 07-31-2023 ambulatory JENNIE Ngo LADARIUS [facility] Start: 07-08-2023 End: 07-08-2023 ambulatory Ania Javed Other [employer] Other Start: 07-08-2023 Office outpatient ne w 20 minutes Ania Javed [facility] Start: 07-03-2023 End: 07-03-2023 Emergency department patient visit Jennie Ames Work Phone: [facility] Work Phone: Start: 07-02-2023 End: 07-02-2023 Emergency department patient visit Bakari Chester [facility] Start: 06-10-2023 End: 06-10-2023 ambulatory EILEEN MANZANO Facility:[facility] Start: 06-09-2023 End: 06-09-2023 Emergency department patient visit Alexis Shukla Facility:[facility] Start: 06-03-2023 Refill Eileen Manzano MD Work Phone: Neurology Comment on above: Refill Request Start: 03-19-2023 End: 03-19-2023 ambulatory LAUNDROMAT MANAGER GANESH CORDERO Facility:[facility] Start: 03-19-2023 End: 03-19-2023 Patient encounter procedure GANESH CORDERO [facility] Start: 01-29-2023 End: 01-29-2023 Subsequent hospital visit by physician [facility] (1.5t) Work Phone: Radiology Comment on above: 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] Start: 01-15-2023 End: 01-15-2023 Emergency department patient visit Bakari Chester [facility] Start: 01-02-2023 End: 01-02-2023 Patient encounter procedure Nakia Mcqueen [facility] Start: 12-12-2022 Refill Eileen Manzano MD Work Phone: Neurology Comment on above: Refill Request Start: 12-05-2022 End: 12-05-2022 Admission to same day surgery center Gal Das [facility] Start: 11-21-2022 End: 11-21-2022 Patient encounter procedure Gal Das [facility] Start: 11-20-2022 End: 11-20-2022 ambulatory EILEEN MANZANO Facility:[facility] Start: 11-20-2022 End: 11-20-2022 Patient encounter procedure Eileen Manzano MD Work Phone: Neurology Comment on above: Idiopathic intracran ial hypertension (Primary Dx); Depression, unspecified depression type; Primary hypertension; Hx of gastric bypass; H/O foot surgery Start: 11-03-2022 End: 11-03-2022 Patient encounter procedure Nakia Mcqueen [facility] Start: 10-30-2022 End: 10-30-2022 ambulatory STEFANIE SINGH . Facility: Start: 10-23-2022 End: 10-23-2022 Lab Drop off Gal Das [facility] Start: 10-14-2022 End: 10-14-2022 Patient encounter procedure Rita Loja [facility] Start: 09-24-2022 End: 09-24-2022 Patient encounter procedure Aimee Walker [facility] Start: 08-22-2022 End: 08-22-2022 Patient encounter procedure Rahul Salinas [facility] Start: 08-19-2022 End: 08-19-2022 ambulatory DO Jennie Ames Work Phone: [facility] Work Phone: Start: 08-19-2022 End: 08-19-2022 Patient encounter procedure DO Jennie Ames Work Phone: [facility] Start: 08-18-2022 End: 08-18-2022 ambulatory RAMSES MARTINEZ . Facility:[facility] Start: 08-18-2022 End: 08-18-2022 Emergency department patient visit Alexis Shukla [facility] Start: 08-16-2022 End: 08-16-[address] NEW DREW . Facility:[facility] Start: 08-12-2022 ambulatory Facility:[id number] Start: 08-11-2022 End: 08-12-2022 Evaluation and management of inpatient DO Jennie Ames Work Phone: [facility] Start: 08-11-2022 End: 08-12-2022 observation encounter DO Jennie Ames Work Phone: [facility] Work Phone: Start: 08-11-2022 End: 08-11-[address] WEI PHAM Facility:[facility] Start: 08-08-2022 End: 08-08-2022 Emergency department patient visit Bakari Chester [facility] Start: 07-21-2022 End: 07-21-2022 Patient encounter procedure Aimee Walker [facility] Start: 07-19-2022 End: 11-05-[address] DOCTOR CAMARILLO Facility:[facility] Start: 07-18-2022 Telephone encounter Eduin Mckee Plastic Surgery Comment on above: Appointment Start: 06-12-2022 End: 06-12-[address] CAROLYNE RALPH Facility:[facility] Start: 06-10-2022 End: 06-10-2022 Patient encounter procedure Alexis Rivers [facility] Start: 05-30-2022 End: 05-30-2022 ambulatory GABRIELA CAMARGO Facility:[facility] Start: 05-13-2022 End: 05-13-2022 Patient encounter procedure Alexis Rivers [facility] [place] Start: 04-22-2022 End: 04-22-2022 Patient encounter procedure Aimee Walker [facility] Start: 04-21-2022 End: 04-21-2022 Patient encounter procedure Aimee Walker [facility] Start: 04-20-2022 End: 04-20-2022 Emergency department patient visit Jose Correia [facility] Start: 04-07-2022 End: 04-07-[address] LADY SANCHEZ . Facility:[facility] Start: 04-03-2022 End: 04-03-2022 Emergency department patient visit Larry Baker [facility] Start: 04-03-2022 End: 04-03-2022 Well adult monitoring check done Larry Baker [facility] Start: 02-12-2022 End: 02-12-2022 Patient encounter procedure Amee Gonzalez PA-C Work Phone: Otolaryngology Comment on above: Burning tongue (Prim masoud Dx); Irritation of oral cavity Start: 02-08-2022 End: 02-08-2022 ambulatory STEFANIE BON . Facility:[facility] Start: 02-06-2022 End: 02-06-2022 Patient encounter procedure Aimee Walker [facility] Start: 01-30-2022 End: 01-30-2022 ambulatory GABRIELA CAMARGO Facility:[facility] Start: 01-29-2022 End: 01-29-2022 Patient encounter procedure Aimee Walker [facility] Start: 01-27-2022 ambulatory Eduin Mckee MD Work Phone: Plastic Surgery Comment on above: questions Start: 01-10-2022 Telephone encounter Eduin marx MD Work Phone: Plastic Surgery Comment on above: Patient Question; Ap pointment Start: 01-09-2022 End: 01-09-2022 Patient encounter procedure Aimee Walker [facility] Start: 12-27-2021 Telephone encounter Eduin marx MD Work Phone: Plastic Surgery Comment on above: Orders Scheduling Start: 11-16-2021 End: 11-17-[address] WILEY ZABALA Facility:[facility] Start: 02-04-2021 End: 02-06-2021 Subsequent hospital visit by physician [facility] Cat Scan Room [facility] CT Scan Comment on above: Omental infarction ( HCC) Start: 01-30-2021 End: 02-01-2021 Evaluation and management of inpatient Berry Lawson MD Work Phone: ST 2C Ortho/Med Surg Comment on above: Surgery, elective (P rimary Dx); Omental infarction (HCC) Start: 01-30-2021 End: 01-30-2021 Emergency department patient visit David Nash MD Work Phone: [facility] ED Comment on above: Generalized abdomina l pain (Primary Dx) Start: 01-26-2021 End: 01-26-2021 Subsequent hospital visit by physician Gamaliel Harris DO Work Phone: [facility] 3C Med Surg Comment on above: Dehydration Start: 01-07-2021 End: 01-08-2021 Evaluation and management of inpatient Gamaliel Harris DO Work Phone: [facility] 2C Ortho/Med Surg Comment on above: Post-op pain (Primar y Dx) Start: 01-03-2021 End: 01-04-2021 ambulatory JENNIE AMES [facility] Start: 01-03-2021 End: 01-03-2021 Patient encounter status [facility] Schedule EDGARDO Covid Scre ening Start: 01-03-2021 End: 01-03-2021 Subsequent hospital visit by physician Edgardo Beyid Screening Schedule EDGARDO Covid Screening Comment on above: Preop testing (Prima ry Dx) Start: 12-24-2020 End: 12-28-2020 Subsequent hospital visit by physician Christiane Salinas Xr [facility] Radiology Comment on above: Arrived Start: 11-01-2020 End: 11-03-2020 Subsequent hospital visit by physician Chaitanya Jett Radiologist [facility] Radiology Comment on above: Gastroesophageal ref lux [...] Start: 11-01-2015 Patient encounter procedure LINDY COTE Facility:[facility] Procedures Date Procedure Procedure Detail Performing [...] esop hagus single contrast study Gamaliel Harris [employer] Work Phone: Start: 01-08-2021 Basic metabolic pane l calcium total Gamaliel Gastelum Alee [employer] Work Phone: Start: 01-07-2021 Basic metabolic pane l calcium total Gamaliel Gastelum Harris [employer] Work Phone: Start: 01-07-2021 End: 01-07-2021 Laps gstr rstcv px w/byp tian-en-y limb <150 cm Gamaliel Gastelum Harris [employer] Work Phone: Start: 01-07-2021 Urine test visual color cmprsn meths Gamaliel Gastelum Alee [employer] Work Phone: Start: 12-24-2020 Assay of nicotine [...] Visit Annual PCP Team Chronic Disease Visit [facility] Start: 03-08-2025 BP Controlled (<130/80) BP Controlled (<130/80) [facility] Start: 03-08-2025 Urine microalbumin profile DTaP,Tdap,Td Vaccine (1 - Tdap) [facility] Comment on above: Postponed from 12/18/2007 (Declined at t his time) Start: 01-03-2025 Annual PCP Team Chronic Disease Visit Annual PCP Team Chronic Disease Visit [facility] Start: 08-05-2024 End: 08-05-2024 ambulatory [facility] Comment on above: Fhx of pancreatic cancer, Phx of pancrea tic mass Action taken: Marked in OnBase for Schedulers Start: 07-01-2024 End: 07-01-2024 Patient encounter procedure 07/01/2024 11:00 AM EDT Office Visit Family Medicine [address] [place] [address] [place] [address] [place] [address] est care. Updated PCP per navigation rules. Family Medicine Comment on above: est care. Updated PCP per navigation rul es. Start: 05-31-2024 End: 05-31-2024 Patient encounter procedure 05/31/2024 11:00 AM EDT Office Visit Family Medicine [address] [place] [address] Lisha Bianchi, AERONAUTICAL ENGINEER.LAB ASSISTANT [address] [place] [address] ED follow up Family Medicine Comment on above: ED follow up Start: 05-24-2024 End: 05-24-2024 Patient encounter procedure 05/24/2024 11:15 AM EDT Office Visit Endocrinology [address] [place] [phone] Austin Leon, AERONAUTICAL ENGINEER.LAB ASSISTANT [address] [place] [address] Class 1 obesity due to excess calories without serious comorbidity with body ma Endocrinology Comment on above: Class 1 obesity due to excess calories w ithout serious comorbidity with body ma Start: 05-15-2024 Influenza vaccination [facility] Start: 03-01-2024 End: 03-01-2024 Patient encounter procedure 03/01/2024 11:20 AM EDT Appointment Radiology [address] [place] [address] MRI Panc/Tanmay [facility] Comment on above: MRI Panc/Tnamay [facility] Start: 01-06-2024 End: 01-06-2024 ambulatory 01/06/2024 8:30 AM EDT Results Only [facility] [address] [place] [address] [place] [address] [facility] Start: 01-04-2024 End: 04-04-2024 CBC panel - Blood by Automated count COMPLETE BLOOD COUNT Lab Routine Routine health maintenance Expected: 01/04/2024, Expires: 04/04/2024 [facility] Work Phone: Comment on above: Expected: 01/04/2024, Expires: Start: 01-04-2024 End: 04-04-2024 Comprehensive metabolic 2000 panel - Serum or Plasma COMPREHENSIVE METABOLIC PANEL Lab Routine Routine health maintenance Expected: 01/04/2024, Expires: 04/04/2024 [facility] Comment on above: Expected: 01/04/2024, Expires: Start: 01-04-2024 End: 04-04-2024 Hemoglobin A1c in Blood HEMOGLOBIN A1C Lab Routine Routine health maintenance Expected: 01/04/2024, Expires: 04/04/2024 [facility] Comment on above: Expected: 01/04/2024, Expires: Start: 01-04-2024 End: 04-04-2024 Hepatitis C virus Ab [Presence] in Serum HEPATITIS C ANTIBODY IA WITH CONFIRMATION Lab Routine Routine health maintenance Expected: 01/04/2024, Expires: 04/04/2024 [facility] Comment on above: Expected: 01/04/2024, Expires: Start: 01-04-2024 End: 04-04-2024 HIV 1+2 Ab [Presence] in Serum or Plasma by Immunoassay HIV 1/2 COMBO WITH REFLEX TO DIFFERENTIATION Lab Routine Routine health maintenance Expected: 01/04/2024, Expires: 04/04/2024 [facility] Comment on above: Expected: 01/04/2024, Expires: Start: 01-04-2024 End: 04-04-2024 Lipid 1996 panel - Serum or Plasma LIPID PANEL BASIC Lab Routine Routine health maintenance Expected: 01/04/2024, Expires: 04/04/2024 [facility] Comment on above: Expected: 01/04/2024, Expires: Start: 12-10-2023 [facility] Start: 09-18-2023 End: 09-18-2023 Egd transoral biopsy single/multiple EGD BIOPSY Gastroesophageal reflux disease, unspecified whether esophagitis present Obesity (BMI 30-39.9) 09/18/2023 8:14 AM [facility] Start: 05-15-2023 COVID-19 Vaccine () COVID-19 Vaccine () [facility] Start: 05-15-2023 Influenza vaccination Influenza Vaccine (#1) [facility] Start: 04-14-2023 Influenza vaccination Flu vaccine (#1) [facility] Start: 08-19-2022 Cerebrospinal fluid culture [facility] Start: 08-19-2022 End: 08-19-2022 [facility] Start: 08-12-2022 [facility] Start: 08-12-2022 Glucose [Mass/volume] in Cerebral spinal fluid [facility] Start: 08-12-2022 Protein [Mass/volume] in Cerebral spinal fluid [facility] Start: 08-12-2022 [facility] Start: 08-11-2022 Hospital admission [facility] Start: 08-11-2022 Referral to neurologist [facility] Start: 08-11-2022 [facility] Start: 05-15-2022 Influenza vaccination [facility] Start: 09-29-2021 COVID-19 VACCINE (3 - Booster for Pfizer series) COVID-19 VACCINE (3 - Booster for Pfizer series) [facility] Start: 09-14-2021 DEPRESSION ASSESSMENT DEPRESSION ASSESSMENT [facility] Start: 06-24-2021 COVID-19 VACCINE (3 - Booster for Pfizer series) COVID-19 VACCINE (3 - Booster for Pfizer series) [facility] Start: 06-24-2021 Covid-19 Vaccine (3 - Pfizer series) Covid-19 Vaccine (3 - Pfizer series) [facility] Start: 03-06-2021 End: 03-06-2021 Patient encounter procedure 03/06/2021 Office Visit Bariatrics Gamaliel Harris, DO [address] [phone] [facility] Invasive Bariatric Surg Start: 02-20-2021 End: 02-20-2021 Patient encounter procedure 02/20/2021 Office Visit Bariatrics Gamaliel Harris, DO [address] [place] [phone] [facility] Start: 01-18-2021 End: 01-18-2021 Office Visit 01/18/2021 Office Visit Bariatrics Gamaliel Harris, DO [address] [place] [address] [facility] Invasive Bariatric Surg Start: 01-07-2021 End: 01-07-2021 Hospital Encounter [facility] Comment on above: XI LAPAROSCOPIC ROBOTIC GASTRIC BYPASS R OUX-EN-Y, LIVER BIOPSY, EGD- GI UNIT SCHEDULED. Start: 01-03-2021 End: 01-03-2021 Office Visit [facility] Invasive Bariatric Surg Comment on above: Arrived Start: 12-31-2020 End: 12-31-2021 COVID-19 COVID-19 Lab Routine Preop testing Expected: 12/31/2020, Expires: 12/31/2021 [facility] Work Phone: Comment on above: Expected: 12/31/2020, Expires: Start: 11-21-2020 End: 11-21-2020 Office Visit 11/21/2020 Office Visit Bariatrics Ganesh Cordero, AERONAUTICAL ENGINEER - LAB ASSISTANT [address] [place] [phone] [facility] Start: 11-01-2020 End: 11-01-2020 Appointment 11/01/2020 Appointment Radiology RadiologistChaitanya [facility] Radiology Start: 10-24-2020 End: 10-24-2020 Office Visit [facility] Start: 09-26-2020 Annual Wellness Visit (AWV) Annual Wellness Visit (AWV) [facility] [place], [place] Start: 2018 HPV TESTING HPV TESTING [facility] Start: 2018 Screening for malignant neoplasm of cervix MARY [facility] Start: 2009 PAP TESTING PAP TESTING [facility] Start: 2009 Screening for malignant neoplasm of cervix [facility] Start: 12-18-2007 DTaP/Tdap/Td vaccine (1 - Tdap) DTaP/Tdap/Td vaccine (1 - Tdap) [facility] Start: 12-18-2007 Urine microalbumin profile [facility] Start: 2006 ANNUAL PCP TEAM CHRONIC DISEASE VISIT ANNUAL PCP TEAM CHRONIC DISEASE VISIT [facility] Start: 2006 BP CONTROLLED (<130/80) BP CONTROLLED (<130/80) [facility] Start: 2006 HEPATITIS C SCREENING HEPATITIS C SCREENING [facility] Start: 2006 Hepatitis C screening [facility] Start: 2006 HIV SCREENING HIV SCREENING [facility] Start: 2006 HIV screening HIV Screening [facility] Start: 2004 COVID-19 Vaccine (1) COVID-19 Vaccine (1) [facility] Start: 12-18-2003 HIV screening HIV screen [facility] Start: 2000 Adult depression screening assessment DEPRESSION SCREENING [facility] Start: 2000 COVID-19 Vaccine (1) COVID-19 Vaccine (1) [facility] Start: 2000 Depression Monitoring Depression Monitoring [facility] Start: 12-10-2000 Hepatitis B Vaccine (2 of 3 - 3-dose series) Hepatitis B Vaccine (2 of 3 - 3-dose series) [facility] Start: 1994 PNEUMOCOCCAL (1 - PCV) PNEUMOCOCCAL (1 - PCV) [facility] Start: 1994 Pneumococcal 0-64 years Vaccine (1 - PCV) Pneumococcal 0-64 years Vaccine (1 - PCV) [facility] Start: 1994 Pneumococcal vaccination [facility] Start: 1989 Varicella vaccine (1 of 2 - 2-dose childhood series) Varicella vaccine (1 of 2 - 2-dose childhood series) [facility] [employer] Start: 1988 HEPATITIS B (1 of 3 - 3-dose series) HEPATITIS B (1 of 3 - 3-dose series) [facility] Start: 1988 Hepatitis B Vaccine (1 of 3 - 3-dose series) Hepatitis B Vaccine (1 of 3 - 3-dose series) [facility] Start: 1988 Hepatitis C screening Hepatitis C screen [facility] [place] [place] Bacteria identified in Unspecified specimen by Aerobe culture [facility] Work Phone: Bacteria identified in Unspecified specimen by Anaerobe culture [facility] Work Phone: Basic Metabolic Pane l w/ Reflex to MG Basic Metabolic Panel w/ Reflex to MG Lab Routine Daily until discontinued starting 02/01/2021, 1 completed [facility] Work Phone: Comment on above: Daily until discontinued starting 2020, 1 completed End: 09-18-2023 Blood glucose - POCT Blood glucose - POCT Point of Care Testing Routine One Time for 1 Occurrences starting 09/18/2023 until 09/18/2023 [facility] [employer] Comment on above: One Time for 1 Occurrences starting 01/2024 until 09/18/2023 CANNABINOID CONF, UR CANNABINOID CONF, UR Lab Routine Panic disorder 01/04/2024 10:20 AM EDT [facility] Cell count, cerebrospinal fluid [facility] Work Phone: Cerebrospinal fluid examination [facility] Work Phone: Continuous pulse oximetry Pulse oximetry, continuous Respiratory Care Routine Every 4hr until discontinued starting 01/07/2021 [facility] Work Phone: Comment on above: Every 4hr until discontinued starting End: 10-26-2020 COVID-19 COVID-19 Lab Routine Preoperative testing 1 Occurrences starting 10/26/2020 until 10/26/2020 [facility] Work Phone: Comment on above: 1 Occurrences starting 10/26/2020 until 10/26/2020 COVID-19 [facility]: End: 01-03-2021 COVID-19 COVID-19 Lab Routine Preop testing 1 Occurrences starting 01/03/2021 until 01/03/2021 [facility] Work Phone: Comment on above: 1 Occurrences starting 01/03/2021 until 01/03/2021 Evaluation of cerebrospinal fluid [facility] Work Phone: Fluid sample volume measurement [facility] Work Phone: Glucose [Mass/volume ] in Cerebral spinal fluid [facility] Work Phone: End: 09-18-2023 INITIATE PACU OXYGEN THERAPY PROTOCOL Initiate PACU Oxygen Therapy Protocol Respiratory Care Routine Continuous until discontinued starting 09/18/2023 [facility] Comment on above: Continuous until discontinued starting 0 09/18/2023 Meningitis+Encephali ti s pathogens DNA and RNA panel - Cerebral spinal fluid by JOSÉ MIGUEL with non-probe detection [facility] Work Phone: Microscopic observation [Identifier] in Unspecified specimen by Gram stain [facility] Work Phone: End: 04-07-2025 MR Breast - left WO and W contrast IV MRI BREAST BX WO/W IVCON LEFT Radiology Routine Mass of upper outer quadrant of left breast 1 Occurrences starting 03/08/2024 until 04/07/2025 [facility] Work Phone: Comment on above: 1 Occurrences starting 03/08/2024 until 04/07/2025 End: 12-20-2023 Mra head w/o & w/contrast material MRV BRAIN WO/W IVCON Radiology Routine Idiopathic intracranial hypertension 1 Occurrences starting 11/20/2022 until 12/20/2023 [facility] Work Phone: Comment on above: 1 Occurrences starting 11/20/2022 until 12/20/2023 Nebulizer therapy HHN Treatment Respiratory Care Routine TID until discontinued starting 01/07/2021 [facility] Work Phone: Comment on above: TID until discontinued starting 01/08/20 21 Nucleated cells [#/volume] in Cerebral spinal fluid by Manual count [facility] Work Phone: Oxygen therapy [Minimum Data Set] [employer] [facility] Comment on above: Daily until discontinued starting 2020 Daily until disconti nued starting 01/07/2021 Daily until disconti nued starting 01/31/2021 Oxygen therapy [Minimum Data Set] Initiate Oxygen Therapy Protocol Respiratory Care Routine As Needed until discontinued starting 09/18/2023 [facility] [employer] Work Phone: Comment on above: As Needed until discontinued starting Patient Education [facility] Work Phone: Patient referral [facility] Work Phone: Phase I & II - meter ed glucose Phase I & II - metered glucose Point of Care Testing Routine As Needed until discontinued starting 09/28/2020 [facility] Comment on above: As Needed until discontinued starting End: 09-28-2020 , urine POCT , urine POCT Point of Care Testing Routine One Time for 1 Occurrences starting 09/28/2020 until 09/28/2020 [facility] Comment on above: One Time for 1 Occurrences starting 09/14 until 09/28/2020 End: 09-18-2023 , urine POCT , urine POCT Point of Care Testing Routine One Time for 1 Occurrences starting 09/18/2023 until 09/18/2023 [facility] [employer] Comment on above: One Time for 1 Occurrences starting 01/2024 until 09/18/2023 Protein [Mass/volume ] in Cerebral spinal fluid [facility] Work Phone: Red blood cell count [facility] Work Phone: SPECIMEN VALIDITY, URINE SPECIMEN VALIDITY, URINE Lab Routine Panic disorder 01/04/2024 10:20 AM EDT [facility] Spirometry panel Incentive pete metry Respiratory Care Routine Every 2hr while awake until discontinued starting 01/07/2021 [facility] Work Phone: Comment on above: Every 2hr while awake until discontinued starting 01/07/2021 Surgical Pathology Surgical Path ology Lab Routine Release Upon Ordering for 1 Occurrences starting 09/28/2020 [place] Comment on above: Release Upon Ordering for 1 Occurrences starting 09/28/2020 [facility] Immunizations Immunization Date Immunization Notes Care Provider Fa dragan 04-29-2021 SARS-CoV-2 (COVID-19 ) mRNA BNT-162b2 vax Aimee Walker [facility] 04-08-2021 SARS-CoV-2 (COVID-19 ) mRNA BNT-162b2 vax Aimee Walker [facility] 07-23-2020 influenza virus vaccine, unspecified formulation Eileen Manzano MD Work Phone: [facility] 07-09-2020 influenza nasal, unspecified formulation Elia Baires DO Work Phone: [facility] 07-09-2020 influenza virus vaccine, unspecified formulation Aimee Walker [facility] 07-09-2020 influenza, injectable, quadrivalent, preservative free Elia Baires DO Work Phone: [facility] 11-12-2000 hepatitis B vaccine, pediatric or pediatric/adolescent dosage Elia Baires DO Work Phone: [facility] 11-12-2000 measles, mumps and rubella virus vaccine Elia Baires DO Work Phone: [facility] NEGATED: Highlighted row has not occurred!07-21-2022 influenza virus vaccine, unspecified formulation Aimee Walker [facility] Payers Date Payer Category Payer Unknown 2023 Medicare [id number] 2021 Medicaid MEDICAID [facility] MEDICAID [id number] 2021-Present [phone] [address] [place] [address] Medicaid [id number] 2021 Medicaid [id number] 2021 Medicare HUMANA MEDICARE HUMANA MEDICARE PPO [id number] 2021-Present [phone] [address] [address] [place] [address] PPO [id number] 2021 Medicare [id number] [id number] .[id number] 2020 Medicare [id number] 1.2.840.079982.1.13.239.2.7 .3.994510.315 1988 Unknown [id number] 2.16.840.1.881253.3.579.2.7 32 1988 Unknown [id number] 2.16.840.1.704639.3.579.2.1 77 1988 Unknown [id number] 2.16.840.1.698474.3.579.2.3 56 1988 Unknown [id number] 2.16.840.1.967703.3.579.2.5 93 1988 Unknown [id number] 2.16.840.1.068942.3.579.2.5 93 1988 Unknown [id number] 2.16.840.1.522860.3.579.2.5 93 1988 Unknown [id number] 2.16.840.1.792138.3.579.2.5 93 1988 Unknown [id number] 2.16.840.1.079986.3.579.2.5 1988 Unknown [id number] 2.16.840.1.185598.3.579.2.5 1988 Unknown [id number] 2.16.840.1.506438.3.579.2.5 1988 Unknown [id number] 2.16.840.1.990394.3.579.2.5 93 1988 Unknown [id number] 2.16.840.1.016729.3.579.2.5 1988 Unknown [id number] 2.16.840.1.663590.3.579.2.5 1988 Unknown [id number] 2.16.840.1.820127.3.579.2.5 1988 Unknown [id number] 2.16.840.1.423641.3.579.2.1 1988 Unknown [id number] 2.16.840.1.827826.3.579.2.1 1988 Unknown [id number] 2.16.840.1.981722.3.579.2.1 1988 Unknown [id number] 2.16.840.1.854940.3.579.2.1 1988 Unknown [id number] 2.16.840.1.464007.3.579.2.1 1988 Unknown [id number] 2.16.840.1.612695.3.579.2.1 1988 Unknown [id number] 2.16.840.1.330770.3.579.2.1 1988 Unknown [id number] 2.16.840.1.293594.3.579.2.7 27 1988 Unknown [id number] 2.16.840.1.096451.3.579.2.7 27 1988 Unknown [id number] 2.16.840.1.297565.3.579.2.7 27 1988 Unknown [id number] 2.16.840.1.718096.3.579.2.7 27 1988 Unknown [id number] 2.16.840.1.034978.3.579.2.7 27 1988 Unknown [id number] 2.16.840.1.304017.3.579.2.7 27 1959 Medicaid [id number] 1.2.840.779271.1.13.239.2.7 .3.222192.315 1959 Private Health Insurance [id number] 1959 Self-pay [id number] Medicare Medicare [id number] Private Health Insurance [employer] MCR PFFS M [id number] Unknown [id number] 2.16.840.1.199567.3.579.2.5 31 Unknown [id number] 2.16.840.1.249910.3.579.2.5 31 Unknown [id number] 2.16.840.1.874544.3.579.2.5 31 Unknown [id number] 2.16.840.1.795074.3.579.2.5 31 Unknown [id number] 2.16.840.1.281532.3.579.2.5 31 Unknown [id number] 2.16.840.1.441899.3.579.2.5 31 Unknown [id number] 2.16.840.1.053607.3.579.2.5 31 Social History Date Type Detail Facility Start: 09-28-2020 End: 01-29-2022 Tobacco smoking status NHIS Former smoker [place], [place] Start: 08-12-2022 End: 12-31-2023 History of tobacco use Current smoker [place], [place] Start: 09-28-2020 End: 11-20-2022 Tobacco use and exposure Never used [place] Start: 09-28-2020 End: 11-20-2022 Alcohol intake Current drinker of alcohol (finding) [place] Start: 09-28-2020 End: 07-03-2022 History SDOH Alcohol Frequency 1 [place] Start: 09-28-2020 Alcohol Comment rare [place], [place] Start: 1990 Sex Assigned At Not on file [place] Start: 12-16-2021 End: 02-06-2022 Exposure to SARS-CoV-2 (event) Not sure [place] End: 03-14-2020 History of tobacco use Cigarette Smoker [facility] Work Phone: Start: 09-28-2020 Alcohol Comment rare [facility] Work Phone: Start: 12-26-2021 End: 11-20-2022 Tobacco smoking status LAIS Smokes tobacco daily [facility] Start: 12-26-2021 End: 09-29-2022 Cigarettes smoked current (pack per day) - Reported 1 [facility] Start: 03-18-2010 History SDOH Alcohol Comment beer and wine once a month [facility] Start: 07-01-2021 End: 11-03-2022 Tobacco smoking status Heavy tobacco smoker (finding) [facility] Tobacco smoking status Never [facility] Start: 07-03-2022 End: 09-29-2022 Sex Assigned At Female [facility] Start: 1990 Sex Assigned At Female [facility] Start: 07-03-2022 History SDOH Alcohol Frequency 5 [facility] Start: 07-03-2022 History SDOH Alcohol Std Drinks 4 [facility] Start: 07-03-2022 History SDOH Social Connections Get Together 2 [facility] Start: 07-03-2022 History SDOH Social Connections Living 3 [facility] Do you belong to any clubs or organizations such as druze groups, unions, fraBioincept or athletic groups, or school groups? No [facility] Are you now , , , , never or living with a partner? [facility] How often to you hav e a drink containing alcohol? 4 or more times a week [facility] How many standard dr inks containing alcohol do you have on a typical day? 7 to 9 [facility] How often do you hav e 6 or more drinks on 1 occasion? Daily or almost daily [facility] How hard is it for y ou to pay for the very basics like food, housing, medical care, and heating Not very hard [facility] Do you feel stress - tense, restless, nervous, or anxious, or unable to sleep at night because your mind is troubled all the time - these days [OSQ] To some extent [facility] (I/We) worried iqra er (my/our) food would run out before (I/we) got money to buy more. Sometimes true [facility] The food that (I/we) bought just didn't last, and (I/we) didn't have money to get more. Never true [facility] Start: 01-13-2022 Gender identity Identifies as female gender (finding) [facility] Start: 02-06-2022 Sexual orientation Heterosexual (finding) [facility] How often to you hav e a drink containing alcohol? Never [facility] Start: 12-10-2023 Tobacco smoking status NHIS Never smoked tobacco (finding) [facility] Do you feel stress - tense, restless, nervous, or anxious, or unable to sleep at night because your mind is troubled all the time - these days [OSQ] Only a little [facility] Functional Status Date Assessment Result Facility 03-08-2024 Functional Status N/A [facility] 07-02-2023 Functional Status N/A [facility] 01-15-2023 Functional Status N/A [facility] 11-21-2022 Functional Status No [facility] 11-03-2022 Functional Status N/A [facility] 09-24-2022 Functional Status N/A [facility] 08-22-2022 Functional Status N/A [facility] 08-18-2022 Functional Status N/A [facility] 08-12-2022 Functional status Patient at Baseline [facility] Work Phone: 08-08-2022 Functional Status N/A [facility] 07-21-2022 Functional Status N/A [facility] 04-21-2022 Functional Status N/A [facility] 04-20-2022 Functional Status N/A [facility] 04-03-2022 Functional Status N/A [facility] Mental Status Date Assessment Result Facility 08-12-2022 Cognitive function Cognitive Sta tus Patient at Baseline [facility] Work Phone: Clinical Notes 12-24-2020 to 05-30-2024 Orlando Hernandez MA - 05/30/2024 1:37 PM Orlando Radford MA - 05/30/2024 1:01 PM Lenora Alvarado RN - 05/30/2024 12:40 PM Lauren Avila LPN - 04/26/2024 3:43 PM EDTPatient Instructions Note Date & Type Note Facility 05-30-2024 Note HNO ID: [id number] Author: ORLANDO HERNANDEZ MA Service: ? Author Type: [employer] Supervisor Type: Progress Notes Filed: 05/30/2024 13:52 Note Text: POPULATION HEALTH NAVIGATION OUTREACH Action/FYI Patient called back and I scheduled her for a ED follow up with LAB ASSISTANT in office. Also scheduled patient for est care appointment. Updated PCP field PER Navigation rules. ACM Reason for Outreach Community Monitoring/Network [employer] Phone Line: ACM Patient Contacted: Spoke to patient/parent/or legal guardian Patient identified by name and : Yes Community Monitoring/Network Nav[employer] Phone Line actions taken: Patient scheduled: ER Follow-up Establish Care Appointment 05/31/2024 in [facility] with LISHA BIANCHI - ED follow up 07/01/2024 in [facility] with TEVIN CRASON - est care 08/05/2024 in [facility] with ROBERTO MCKEON of pancreatic cancer, Phx of pancreatic mass Action taken: Marked in OnBase for Schedulers PCP field updated Navigation Signature: Orlando Hernandez MA May 30, 2024 1:44 PM [facility] 05-30-2024 History of Present illness Narrative POPULATION HEALTH NAVIGATION OUTREACH Action/FYI Patient called back and I scheduled her for a ED follow up with LAB ASSISTANT in office. Also scheduled patient for est care appointment. Updated PCP field PER Navigation rules. ACM Reason for Outreach Community Monitoring/Network Navigator [employer] & Phone Line: ACM Patient Contacted: Spoke to patient/parent/or legal guardian Patient identified by name and : Yes Community Monitoring/Network Nav[employer] Phone Line actions taken: Patient scheduled: ER Follow-up Establish Care Appointment 05/31/2024 in [facility] with LISHA BIANCHI - ED follow up 07/01/2024 in [facility] with TEVIN CARSON est care 08/05/2024 in [facility] with ROBERTO MCKEON of pancreatic cancer, [...] record. We are forwarding this patient to [employer] Navigation to schedule a [facility] ED 05/23/24 PCP follow-up appointment. Thank you 1st attempt- Called and left a voicemail for patient to call me back directly. [employer] message sent Postponing for 2 days. [facility] Reason for Outreach Community Monitoring/Network Navigator [employer]ools & Phone Line: [facility] Patient Contacted: Unable or unnecessary to reach patient: Left message [employer] message sent Navigation Signature: Orlando Hernandez MA [...] patient to Network Navigation to schedule a [facility] ED 05/23/24 PCP follow-up appointment. Thank you Exclusion Criteria - Does not meet exclusion criteria ED DIAGNOSES/REASON(S) FOR ED USE: [facility] OTHER FINDINGS/SUMMARY: Unable to locate ED discharge summary in Care everywhere Patient Attributed To: QAE Payer: Mauricio HAMMOND Action Taken: Referrals/Routed: Population Health Navigation: Appointment. Router to COMMUNITY MONITORING PSS POOL [[id number]] Contact made with patient: No, Chart review only. Signature: Lenora KHALIL, RN, [facility] Transitional Therapist Respiratory [facility] [phone] documented in this encounter [facility] 05-30-2024 Note HNO ID: [id number] Author: ORLANDO HERNANDEZ MA Service: ? Author Type: [employer] Supervisor Type: Progress Notes Filed: 05/30/2024 13:07 Note Text: POPULATION HEALTH NAVIGATION OUTREACH Action/FYI Reason for review or outreach: Chart Review Ed[facility] Priority Emergency Department Utilization REQUESTED ACTION/FYI: Please see ED Utilization summary below: A follow-up appointment is not noted in patient's record. We are forwarding this patient to Network Navigation to schedule a [facility] ED 05/23/24 PCP follow-up appointment. Thank you 1st attempt- Called and left a voicemail for patient to call me back directly. [employer] message sent Postponing for 2 days. AC Reason for Outreach [employer]/Network Navigator [employer] AND Phone Line: [facility] Patient Contacted: Unable or unnecessary to reach patient: Left message [employer] message sent Navigation Signature: Orlando Hernandez MA May 30, 2024 1:01 PM [facility] 05-30-2024 Note HNO ID: [id number] Author: LENORA YEE, RN Service: ? Author [...] patient to Network Navigation to schedule a [facility] ED 05/23/24 PCP follow-up appointment. Thank you Exclusion Criteria - Does not meet exclusion criteria ED DIAGNOSES/REASON(S) FOR ED USE: [facility] OTHER FINDINGS/SUMMARY: Unable to locate ED discharge summary in Care everywhere Patient Attributed To: KERMIT Payer: Mauricio HAMMOND Action Taken: Referrals/Routed: Population Health Navigation: Appointment. Router to COMMUNITY [employer] PSS POOL [[id number]] Contact made with patient: No, Chart review only. Signature: Lenora Yee MSN, RN, [facility] Primary Care Transitional Therapist Respiratory [facility] [phone] [facility] 05-30-2024 Note Patient Outreach ([facility]) SHAZIA CHOU ([id number]) 1990 F Date Time Provider Department 05/30/[address] [facility] During your visit today, we recorded the [...] record. We are forwarding this patient to [employer] to schedule a [facility] ED 05/23/24 PCP follow-up appointment. Thank you Exclusion Criteria - Does not meet exclusion criteria ED DIAGNOSES/REASON(S) FOR ED USE: [facility] OTHER FINDINGS/SUMMARY: Unable to locate ED discharge summary in Care everywhere Patient Attributed To: QAE Payer: Mauricio HAMMOND Action Taken: Referrals/Routed: Population Health Navigation: Appointment. Router to [facility] [[id number]] Contact made with patient: No, Chart review only. Signature: Lenora KHALIL, RN, [facility] Primary Care Transitional Therapist Respiratory [facility] [phone] Orlando Hernandez MA 05/30/2024 1:07 PM Addendum POPULATION HEALTH NAVIGATION OUTREACH Action/FYI Reason for review or outreach: Chart Review Edy[facility] Priority Emergency Department Utilization REQUESTED ACTION/FYI: Please see ED Utilization summary below: A follow-up appointment is not noted in patient's record. We are forwarding this patient to [employer] Navigation to schedule a [facility] ED 05/23/24 PCP follow-up appointment. Thank you 1st attempt- Called and left a voicemail for patient to call me back directly. Mychart message sent Postponing for 2 days. ACM Reason for Outreach Community Monitoring/Network Navigator [employer] Phone Line: ACM Patient Contacted: Unable or unnecessary to reach patient: Left message [employer]umhart message sent Navigation Signature: Orlando Hernandez MA May 30, 2024 1:01 PM Orlando Hernandez MA 05/30/2024 1:52 PM Addendum POPULATION HEALTH NAVIGATION OUTREACH Action/FYI Patient called back and I scheduled her for a ED follow up with LAB ASSISTANT in office. Also scheduled patient for est care appointment. Updated PCP field PER Navigation rules. ACM Reason for Outreach Community Monitoring/Network Navigator Pools AND Phone Line: ACM Patient Contacted: Spoke to patient/parent/or legal guardian Patient identified by name and : Yes Community Monitoring/Network Navigator P[employer] AND Phone Line actions taken: Patient scheduled: ER Follow-up Establish Care Appointment 05/31/2024 in [facility] with LISHA BIANCHI - ED follow up 07/01/2024 in [facility] with TEVIN CARSON - est care 08/05/2024 in [facility] with ROBERTO MCKEON - Fhx of [...] - Swelling Date Reviewed: 03/08/2024 Reviewed by: oSfia Benavidez, RN - Fully Assessed Reason for Visit: ACM EDYTA RN [[id number]] Cmt: ED Utilization review per request of [...] mg by mouth daily at bedtime. - bfwalgomypbj-okw-oswc-FA-vit K (BARIATRIC MULTIVITAMINS) 45 mg iron- 800 mcg-120 mcg cap Take by mouth. Problem List As Of Date 05/30/2024 Noted Resolved Poor growth, affecting management of moth*07/03/2008 03/08/2024 Idiopathic intracranial hypertension [G93.2] 11/20/2022 Primary hypertension [I10] 11/20/2022 03/08/2024 Depression [F32.A] 11/20/2022 Hx of gastric bypass [Z98.84] 11/20/2022 H/O foot surgery [Z98.890] 11/20/2022 Bipolar affective d (more content not included)... [facility] 05-12-2024 Note HNO ID: [id number] Author: ?, ?, ? Service: ? Author Type: ? Type: Progress Notes Filed: 05/12/2024 17:42 Note Text: MCM sent to pt advising her that her Breast MRI has still not been scheduled. Pancreas was completed. Kimberli Malave PSS [facility] 04-26-2024 History of Present illness Narrative Outreach message sent documented in this encounter [facility] 04-26-2024 Note HNO ID: [id number] Author: LAUREN CAPELLAN LPN Service: ? Author Type: LICENSED NURSE Type: Progress Notes Filed: 04/26/2024 15:43 Note Text: Outreach message sent [facility] 04-26-2024 Note Patient Outreach ([facility]) SHAZIA CHOU ([id number]) 1990 F Date Time Provider Department 04/26/24 ELIA BAIRES [facility] During your visit today, we [...] mg by mouth daily at bedtime. - kfnucfnbcfxj-ile-amow-FA-vit K (BARIATRIC MULTIVITAMINS) 45 mg iron- 800 [...] Encounter Status:Closed by LAUREN CAPELLAN on 04/26/24 [facility] 03-08-2024 Hospital Discharge instructions Patient Education 03/08/2024 [...] Follow these instructions at home: Medicines Take mvbc-lzf-zdclflj and prescription medicines only as told by your health care provider. Ask your health care provider if the medicine prescribed to you: ?Requires you to avoid driving or using heavy machinery. ?Can cause constipation. You may need to take these actions to prevent or treat constipation: ?Drink enough fluid to keep your urine pale yellow. ?Take vyxg-jkl-wfmpbuv or prescription medicines. ?Eat foods that are [...] provider. Document Revised: 12/08/2022 Document Reviewed: 01/24/2020 [facility] Patient Education 2022 CMGE. 03/08/2024 15:36:59 Head Injury, Adult Head Injury, [...] Ask your health care provider for a gpdk-ct-cvgu plan for gradually returning to activities. Ask [...] your friends, family, a trusted colleague, and body worker about your injury, symptoms, and restrictions. Have them watch for any new or worsening problems. General instructions Take ytsc-ypv-lnluwlm and prescription medicines only as told by [...] provider. Document Revised: 07/13/2020 Document Reviewed: 07/13/2020 [facility] Patient Education 2022 CMGE. 03/08/2024 15:36:59 Muscle Strain Muscle Strain A [...] is not too tight. General instructions Take arcy-bzh-jiudauc and prescription medicines only as told by [...] provider. Document Revised: 11/18/2021 Document Reviewed: 11/18/2021 [facility] Patient Education 2022 CMGE. Follow Up Care 03/08/2024 13:07:25 With:David Zazueta Address: [address], [address] [place] [phone] Business (1) When:03/11/2024 15:24:14 With:Jennie Ames Address: [address] [facility] [place] [address]- Business (1) When:Within 3 Day(s) [facility] 03-08-2024 History of Present illness Narrative [...] PATIENT PRESENTS WITH AN IMPLANTABLE OR ATTACHED SALES REPRESENTATIVE ELECTRIC SERVICE: No RADIOLOGY DEPARTMENT: MR; Exam(s) Completed: Body: Pancreas/Biliary PERIPHERAL IV DATA: Site assessment: Clean,Dry and Intact, Site disposition Discontinued SIGNED BY: MARIXA Tovar March 08, 2024 10:35 AM documented in this encounter [facility] 03-08-2024 Note HNO ID: [id number] Author: MIRLANDE DIAZ MRI Tech Service: Radiology Author Type: Concrete Engineer Type: Progress Notes Filed: 03/08/2024 10:36 Note [...] PATIENT PRESENTS WITH AN IMPLANTABLE OR ATTACHED SALES REPRESENTATIVE ELECTRIC SERVICE: No RADIOLOGY DEPARTMENT: MR; Exam(s) Completed: Body: Pancreas/Biliary PERIPHERAL IV DATA: Site assessment: Clean,Dry and Intact, Site disposition Discontinued SIGNED BY: MARIXA Tovar March 08, 2024 10:35 AM [facility] 03-08-2024 Note HNO ID: [id number] Author: SOFIA BENAVIDEZ RN Service: Nursing Author [...] DATE: March 08, 2024 TIME: 10:01 AM [facility] 03-08-2024 Instructions Elia Baires DO - 03/08/2024 8:47 AM EDT 1) Schedule appointment with Austin Mata to discuss Adipex. 2) Schedule MRI of breast 3) I can refill the klonopin as needed. 4) Try steroid as needed twice daily 5) Follow-up in [address] Carson to establish care documented in this encounter [facility] 03-08-2024 Note HNO ID: [id number] Author: BAIRES, ELIA, DO Service: ? Author [...] was able to establish with psychiatry at [facility]. Says they stopped her Rexulti and switch to Lamictal 75 mg daily. Says this has dramatically improved her symptoms. Currently taking duloxetine 60 mg twice daily and trazodone 50 mg at bedtime. She says that she has only needed to use her clonazepam a few times a week. H (more content not included)... [facility] 03-08-2024 History of Present illness [...] was able to establish with psychiatry at [facility]. Says they stopped her Rexulti and switch [...] updated today in the History tab of makemoji. REVIEW OF SYSTEMS: All other reviewed and [...] Pulses: DP 2+, Well perfused Dr. Elia Biares DO documented in this encounter [facility] 01-04-2024 Instructions Elia Baires DO - 01/04/2024 10:16 AM EDT 1) Give urine sample today. 2) Placed lab orders. Fast for 12 hours then get labs. 3) I would follow-up with your psychiatrist in January 4) Physical in 1-2 months. documented in this encounter [facility] 01-04-2024 Note HNO ID: [id number] Author: ELIA BAIRES DO Service: ? Author [...] She says that she is originally from [facility] however came up to here today [...] to establish with a new psychiatrist at [facility] in [place]. She also sees a counselor weekly. Current [...] psychosis or maryam. Dr. Elia Baires, DO [facility] 01-04-2024 History of Present illness [...] She says that she is originally from [facility] however came up to here today [...] to establish with a new psychiatrist at [facility] in [place]. She also sees a counselor weekly. Current [...] Elia Baires DO documented in this encounter [facility] 09-18-2023 Hospital Discharge instructions Gamaliel Harris [...] questions, PLEASE call your doctor or the [facility] center at documented in this encounter [facility] 09-16-2023 History of Present illness Narrative PAT phone call for /EGD completed with pt. Date/time/location (entrance C) of surgery/procedure verified with pt. NPO after MN status verified with pt. 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 Instructed pt to take a shower the AM of surgery/procedure and to avoid lotions, creams, jewelry. Encouraged pt to avoid artificial nails and/or nailpolish. Instructed pt to take BP meds with a small sip of water prior to procedure/surgery. documented in this encounter [facility] 09-15-2023 Note HNO ID: [id number] Author: Rahul Godinez DO Service: ? Author Type: Fellow Type: Progress Notes Filed: 09/15/2023 12:00 PM Note Text: [facility] Multidisciplinary Fxkclf-Ubvhfqluu-Rhdknbq AND Upper GI Case Conference -- Consensus Note -- Conference Date: 09/15/2023 Case reviewed with physicians from GI, Surgery, AND Radiology services: -- Surgeons - Cristal Rodriguez Augustin, Naffouje, Visioni, and Gaurang -- Gastroenterologists - Brando Sinclair -- Radiologist - Chetek Issue(s) Question(s): 32 year old female with [...] Notes Jul, Pancreatic cyst (ICD-10 - K86.2) [facility] [employer] [facility] 10-25-2023 Evaluation note* Encounter Date Diagnosis [...] stop smoking. Jun, Smoker (ICD-10 - F17.200) [facility] [employer] Other 09-27-2023 NoteHNO ID: [id number] Author: Eileen Manzano MD Service: ? Author Type: Physician Type: Progress Notes Filed: 06/10/2023 3:39 PM Note Text: [facility] General Neurology Follow Up / Established Virtual Visit I have communicated my name and active licensure. The patient's identity and physical location were verified at the time of this visit. Either the patient or their legal volunteer patient representative has been informed of the risks [...] due to congenital deformity, seen in the [facility] for General Neurology for: Idiopathic intracranial [...] due to congenital deformity, seen in the [facility] for General Neurology for: 1. Idiopathic [...] she agreed. She needs to follow with manager discovery every 6 months. In some patients with [...] her eyes. She has never seen an manager discovery. CSF protein 24, Glu 55, Pro 28, [...] cognition, memory, speech. Cr (more content not included)...[id number] Miscellaneous Notes * Telephone Encounter - Bunny [...] A DAY IN A WEEK Pharmacy Name: [facility] Phone #: [phone] Fabby Cassidy [facility] Evaluation + Plan note Diagnostic Tests Pending * Zinc Level 03/19/23 * PTH Intact 03/19/23 * Vitamin A Level 03/19/23 * Vitamin B1 03/19/23 Future Scheduled Tests Laboratory* CBC w/ Auto Diff 07/21/22 Radiology* MA Mamm Screen w/CAD if perf and 3D Tanmay 04/21/22 [facility]05-04-2023 Hospital Discharge instructions Patient Education 01/15/2023 [...] Follow these instructions at home: Medicines Take hxam-kvb-gqzphjr and prescription medicines only as told by [...] provider. Document Revised: 11/14/2021 Document Reviewed: 11/14/2021 [facility] Patient Education 2022 CMGE. Follow Up Care 01/15/2023 10:48:45 With:Jennie Ames Address: [address] [place] [address] [address] , [address] [address] Business (1) When:01/18/2023 13:32:37 [facility]05-04-2023 Evaluation + Plan noteExtracted from: Title:ED [...] w/CAD if perf and 3D Tanmay 04/21/22 [facility]03-31-2023 Miscellaneous Notes* Telephone Encounter - Bunny Durbin RN - 12/12/2022 3:03 PM EDT Spoke with patient and informed that per [facility] pharmacy, there are remaining refills on her [...] A DAY IN A WEEK Pharmacy Name: [facility] Pharm[facility] Phone #: [phone] Fabby Cassidy documented [facility] Hospital Discharge instructions Patient Education 12/05/2022 12:15:12 Post Op Patient Instructions - FT (CUSTOM) 12/05/2022 12:15:12 TILE DECORATOR - Post Hysterectomy/Laparotomy/Major Surgery-Thiago (CUSTOM) Instructions post [...] Up Care 11/04/2022 14:01:47 With:Gal Das Address: [facility] [address] [address] Business (1) When:6 weeks With:Gal Das Address: [facility] [address] [address] [facility] (1) When:2 weeks Comments:Call for any problems. [facility]03-24-2023 Evaluation + Plan noteExtracted from: Title:ANES Post-operative Note - General Author: Vu Maria Jr., DO Date:12/05/22 Plan Transfer/Discharge: Transfer/Discharge Discharge when meets criteria ( From PACU to Ambulatory Surgery Unit, and To home ). Extracted from: Title:ANES Pre-operative Note - Adult Author:Vu Chowdhury Jr., DO Date:12/05/22 Plan [place] [employer] Anesthesiologists (ASA) physical status classification: Class II. Anesthetic Preoperative Plan: Anesthesia General. Future Appointments Appointment Date:01/02/2023 10:00:00 AM Scheduled Provider:Nakia Shah Location:[facility] Appointment Type: Open Future Scheduled Tests Laboratory* CBC w/ Auto Diff 07/21/22 Radiology* MA Mamm Screen w/CAD if perf and 3D Tanmay 04/21/22 [facility]03-09-2023 NoteHNO ID: [id number] Author: Eileen Manzano MD Service: ? Author Type: Physician Type: Progress Notes Filed: 11/20/2022 10:33 AM Note Text: [facility] General Neurology New Patient Evaluation Consulting [...] due to congenital deformity, seen in the [facility] for General Neurology for: Idiopathic intracranial [...] her eyes. She has never seen an manager discovery. CSF protein 24, Glu 55, Pro 28, [...] due to congenital deformity, seen in the [facility] for General Neurology for: 1. Idiopathic [...] she agreed. She needs to follow with manager discovery every 6 months. In some patients with [...] --start acetazolamide (diamox 500m (more content not included)...[facility] [id number] Instructions* Patient Instructions* Eileen Manzano MD - [...] up in 2-4 months [facility] History of Present illness Narrative* Eileen Manzano MD - 11/20/2022 7:57 AM EST Images from the original note were not included. [facility] for General Neurology New Patient Evaluation [...] due to congenital deformity, seen in the [facility] for General Neurology for: Idiopathic intracranial [...] her eyes. She has never seen an manager discovery. CSF protein 24, Glu 55, Pro 28, [...] due to congenital deformity, seen in the [facility] for General Neurology for: 1. Idiopathic [...] she agreed. She needs to follow with manager discovery every 6 months. In some patients with [...] Take 40 mg by mouth once daily. wksfizbecovg-xnm-hsgq-FA-vit K (BARIATRIC MULTIVITAMINS) 45 mg iron- 800 [...] % Lymph% 20 15.9 - 47.3 % Ida% 6 0.0 - 12.0 % Eosin% 3 0.0 - 6.6 % Baso% 1 0.0 - 1.2 % Abs Neut (ANC) 7.64 (H) 1.45 - 7.50 k/uL Abs Lymph 2.18 1.00 - 4.00 K/uL Abs Ida 0.65 0.00 - 0.86 k/uL Abs Eosin [...] which included preparing to see the patient, vxmg-us-icdk patient care, completing clinical documentation, obtaining and/or reviewing separately obtained history, performing a medically appropriate examination, counseling and educating the pat ient/family/caregiver, ordering medications, tests, or procedures, independently interpreting results (not separately reported), communicating results to the patient/family/caregiver, and care coordination (not separately reported). Eileen Manzano MD [facility] Hospital Discharge instructions Patient Education 11/03/2022 [...] height. This can be done either in Maltese (U.S[place] or metric measurements. Note that charts are available to help you find your BMI quickly and easily without having to do these calculations yourself. To calculate your BMI in Maltese ([place] measurements, your health care provider will: [...] medical problems. BMI can be measured using Maltese measurements or metric measurements. To interpret your [...] 05/12/2005 Document Revised: 08/13/2018 Document Reviewed: 07/14/2018 [facility] Patient Education 2020 CMGE. 11/03/2022 13:28:26 Tobacco Use Disorder Tobacco Use [...] reduces withdrawal symptoms. NRT is available as: ?Ygcj-hen-gtzxspw gums, lozenges, and skin patches. ?Prescription mouth [...] recovery for many people. General instructions Take rrkc-nte-ghubknz and prescription medicines only as told by your health care provider. Check with your health care provider before taking any new prescription or tvwf-uae-fjfiudl medicines. Decide on a friend, family member, or smoking quit-line (such as 0-054-TCVK-NOW in the [place] that you can call [...] 05/06/2005 Document Revised: 08/18/2018 Document Reviewed: 08/18/2018 [facility] Patient Education 2020 CMGE. 11/03/2022 13:28:23 Alcohol Abuse and Dependence Information, [...] find support Your health care provider. SMART [place]: www.smartrecovery.org Therapy and support groups Local treatment centers or chemical dependency counselors. Local AA groups in your community: www.aa.org Where to find more information Centers for Disease Control and Prevention: www.cdc.gov National [place] on Alcohol Abuse and Alcoholism: www.niaaa.nih.gov Alcoholics [...] 08/25/2017 Document Revised: 12/20/2019 Document Reviewed: 11/08/2019 [facility] Patient Education 2020 [facility] 11/03/2022 13:28:19 BMI for Adults BMI [...] height. This can be done either in Maltese ([place] or metric measurements. Note that charts are available to help you find your BMI quickly and easily without having to do these calculations yourself. To calculate your BMI in Maltese ([place] measurements, your health care provider will: [...] medical problems. BMI can be measured using Maltese measurements or metric measurements. To interpret your [...] 05/12/2005 Document Revised: 08/13/2018 Document Reviewed: 07/14/2018 [facility] Patient Education 2020 CMGE. 10/27/2022 11:56:27 Alcohol Abuse and Dependence Information, [...] for Disease Control and Prevention: www.cdc.gov National [place] on Alcohol Abuse and Alcoholism: www.niaaa.nih.gov Alcoholics [...] 08/25/2017 Document Revised: 12/20/2019 Document Reviewed: 11/08/2019 [facility] Patient Education 2019 CMGE. Follow Up Care 10/15/2022 11:28:56 With:Charisse TEIXEIRA, Nakia Brock Address: [address], [place] [address]- When:Within 2 Month(s) Comments:f/u smoking cessation and BP [facility] 01-11-2023 Hospital Discharge instructions [...] reduces withdrawal symptoms. NRT is available as: ?Ibnc-kyu-nrzevyc gums, lozenges, and skin patches. ?Prescription mouth [...] recovery for many people. General instructions Take xkrx-ria-vyaawxa and prescription medicines only as told by your health care provider. Check with your health care provider before taking any new prescription or fqsm-vef-busvlch medicines. Decide on a friend, family member, or smoking quit-line (such as 4-639-HCFC-NOW in the [place] that you can call [...] 05/06/2005 Document Revised: 08/18/2018 Document Reviewed: 08/18/2018 [facility] Patient Education 2020 CMGE. 09/24/2022 07:23:47 BMI for Adults BMI for [...] height. This can be done either in Maltese ([place] or metric measurements. Note that charts are available to help you find your BMI quickly and easily without having to do these calculations yourself. To calculate your BMI in Maltese ([place] measurements, your health care provider will: [...] medical problems. BMI can be measured using Maltese measurements or metric measurements. To interpret your [...] 05/12/2005 Document Revised: 08/13/2018 Document Reviewed: 07/14/2018 [facility] Patient Education 2020 CMGE. 09/24/2022 07:23:45 Alcohol Use Disorder Alcohol Use [...] centers. Follow these instructions at home: Take wgka-fqm-fgfqeau and prescription medicines only as told by [...] 10/08/2005 Document Revised: 08/13/2018 Document Reviewed: 05/28/2017 [facility] Patient Education 2020 CMGE. 09/24/2022 07:23:42 Borderline Personality Disorder, Adult Borderline [...] with BPD should do these things: Take uarc-uqn-nwaawbf and prescription medicines only as told by [...] important. Where to find more information National [place] on Mental Illness: www.marivel.org [place]. National Palmetto of Mental Health: www.nimh.nih.gov Contact a health [...] 12/16/2011 Document Revised: 08/13/2018 Document Reviewed: 11/05/2017 [facility] Patient Education 2020 CMGE. 09/24/2022 07:23:39 Managing Bipolar Disorder Managing Bipolar [...] Follow these instructions at home: Medicines Take skug-ruk-zjkcwbg and prescription medicines only as told by your health care provider or pharmacist. Ask your pharmacist what ozla-uxc-tmziccb cold medicines you should avoid. Some medicines [...] search for a local or [facility] mental health care center. Public mental [...] Document Reviewed: 12/31/2017 Elsevier Patient Education 2019 [facility] Follow Up Care 09/16/2022 13:23:11 With:Aimee Walker CNP Address: [address] [place] [phone] When:3 months [facility] 12-09-2022 Hospital Discharge instructions Patient Education 08/22/2022 11:12:56 Tension Headache, Adult, Shor-iu-Yeqi Tension Headache, Adult A tension headache is pain, pressure, or aching in your head. Tension headaches can last from 30 minutes to several days. Follow these instructions at home: Managing pain Take pgle-zyb-fcnfuir and prescription medicines only as told by [...] 11/25/2010 Document Revised: 08/13/2018 Document Reviewed: 12/11/2017 [facility] Patient Education 2020 CMGE. Follow Up Care 08/14/2022 12:38:29 With:Rita SNOWDEN, IGGY Roberson, PED Address: [address] [place] [address] [place] [address] When:1 month only if needed Comments:40 mins [facility] 12-05-2022 Hospital Discharge instructions [...] feet clean and dry. General instructions Take faka-wax-fccokpt and prescription medicines only as told by [...] 09/26/2016 Document Revised: 06/16/2019 Document Reviewed: 06/16/2019 [facility] Patient Education 2020 CMGE. 08/18/2022 19:56:48 Foot Sprain Foot Sprain A [...] fully hardened. This may takeseveral hours. Take zulv-hrx-hsushsx and prescription medicines only as told by [...] 02/20/2003 Document Revised: 09/04/2018 Document Reviewed: 09/04/2018 [facility] Patient Education 2020 CMGE. 08/18/2022 19:56:48 Elastic Bandage and RICE Therapy [...] limityour activities and whether you should start hagty-dv-eelmav exercises for your injury. Ice Ice your [...] Document Reviewed: 05/21/2018 Elsevier Patient Education 2020 CMGE. Follow Up Care 08/18/2022 17:21:15 With:Hilton Gillis Address: [address] [place], [place] [id number]- Business (1) When:08/21/2022 19:10:21 With:Aimee Walker Address:Unknown When:Within 3 Day(s) [facility] Progress note Author Lizzeth Malave [facility] August 12, 2022 10:46am Note Date/Time August 12, 2022 10:45am [facility] [address] [place] [address] Hospitalist Progress Note Signed Patient: Shazia Chou MR#: [id number] : 1990 Acct:[id number] Age/Sex: 31 / F Adm Date: 2 Loc: Room: [address] [place] [address] Type: ADM INOo Attending Dr: Lizzeth Malave MD Copies to: ~ Date of Service: 08/12/2022 Subjective Subjective Narrative: Shazia Chou is a 31yo F. She was transferred here last night from [facility] with worsening headache and blurry [...] Flu Vac Quad (36month+)Pf 0.5 Ml Syringe [id number] IM 08/13/22 09:01 .ONCE ONE Omeprazole 20 [...] <Electronically signed by Lizzeth Malave MD> 08/12/22 [facility] Work Phone: [phone]) 380-686211-29-2022 Consult note Author Kenrick Lee [facility] August 12, 2022 4:21pm Note Date/Time August 12, 2022 8:13am [facility] [address] [place] [address] Neurology Consult Note Signed Patient: Shazia Chou MR#: [id number] : 1990 Acct:[id number] Age/Sex: 31 / F Adm Date: 2 Loc: 4N Room: [address] [place] [address] Type: ADM INOo Attending Dr: Lizzeth Malave MD Copies to: DO Jennie Wise ANP-C Lizzeth Malave MD~ HPI Consult Date: 08/12/22 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 She has been seen in neurological consultation with request of the hospital service for headache and blurred vision. Patient initially presented to [facility] and was transferred to [facility] for evaluation. She was seen in the [place] ER on 08/08/2022 with similar symptoms and [...] this is when she called EMS. At [facility] she had a CT scan [...] extremity from prior surgery CEREBELLAR EXAM: * Yfzwui-fz-osls and alternating movements are intact and normal in bilateral upper extremities * Tppb-la-qebc and alternating movements are intact and normal [...] puncture based on these results. Evaluation at [facility]: * CT scan head is [...] once daily). Okay for discharge now from [facility]. Documented By: EDINSON Dias [id number] Signed By: <Electronically signed by EDINSON Niño> 08/12/22 0958 <Electronically signed by Kenrick Lee DO> 08/12/22 1621 [facility] Work Phone: [phone] 387-772411-28-2022 History and physical note Author Sangeetha Peña [facility] August 11, 2022 9:43pm Note Date/Time August 11, 2022 9:08pm [facility] [address] [place] [address] Hospitalist H&P Signed Patient: Shazia Chou MR#: [id number] : 1990 Acct:[id number] Age/Sex: 31 / F Adm Date: 2 Loc: 4 Room: 2C9362-2 Type: ADM IN Attending Dr: Erin Barahona MD Copies to: MD Erin Mcwilliams MD~ HPI DATE OF EXAMINATION: 08/11/22 CHIEF COMPLAINT: Headache with blurry vision HISTORY OF PRESENT ILLNESS: Patient is a pleasant 31-year-old female with history of borderline personality disorder, bipolar disorder and depression. She was accepted by daytime hospitalist when contacted by [place] ER physician due to concern for headache [...] pain or dysuria. She was seenin the [place] on 08/08 with similar symptoms. She [...] vision: Plan Patient has been transferred from [facility] when she presented with complaint of headache and blurry vision. During my evaluation her blood pressure is in 115 systolic and complaining of headache with blurry vision. Denies diplopia with no pain in extraocular movement. There is concern for possible idiopathic intracranial hypertension and patient has been transferred to [facility] for further management and neurology evaluation. Will [...] <Electronically signed by Sangeetha Peña MD> 08/11/222142 [facility] Work Phone: 1(796) 940-978811-25-2022 Evaluation + Plan noteExtracted from: Title:ED Note Author:Bakari Chester DO Date:10/08/21 Asymptomatic hypertension (I 10: Essential (primary) hypertension) Headache (R51.9: Headache, unspecified) Orders: APAP/butalbital/caffeine, 1 cap(s), Oral, q4hr for headache, 12 cap(s), Refill(s) 0, [facility]/pharmacy #[id number], 162, cm, 08/08/22 9:11:00 EST, Height/Length Dosing, 83.1, kg, 08/08/22 9:11:00 EST, Weight Dosing ondansetron, 4 mg = 1 tab(s), Oral, q8hr, PRN Nausea/Vomiting, # 12 tab(s), Refills(s) 0, Pharmacy: [facility]/pharmacy #[id number], 162, cm, 08/08/22 9:11:00 EST, Height/Length Dosing, 83.1, kg, 08/08/22 9:11:00 EST, Weight Dosing Automated Diff Basic Metabolic Panel Beta hCG Qual CBC w/ Auto Diff CT Head or Brain w/o Contrast eGFR Influenza A&B Ag Rapid COVID Antigen ([facility]) UA With Cult Reflex Future Scheduled Tests Laboratory* CBC w/ Auto Diff 07/21/22 Radiology* MA Mamm Screen w/CAD if perf and 3D Tanmay 04/21/22 [facility]11-25-2022 Hospital Discharge instructions Patient Education 08/08/2022 [...] health care provider to lose weight. Take ielu-eer-iplkjiq and prescription medicines only as told by [...] 11/09/2002 Document Revised: 08/13/2018 Document Reviewed: 07/22/2017 [facility] Patient Education 2020 CMGE. Follow Up Care 08/08/2022 09:04:11 With:Kenrick Lee Address: [address] [place] [address] [facility] (1) When:08/11/2022 11:38:22 Comments:Follow-up with Dr. Lee [...] you develop any new or worsening symptoms. [facility]11-07-2022 Evaluation + Plan note Future Scheduled Tests Laboratory* CBC w/ Auto Diff 07/21/22 Radiology* MA Mamm Screen w/CAD if perf and 3D Tanmay 04/21/22 [facility] 11-07-2022 Evaluation + Plan note Future Scheduled Tests Laboratory* CBC w/ Auto Diff 07/21/22 [facility]11-07-2022 Hospital Discharge instructions Patient Education 07/21/2022 [...] Follow these instructions at home: Medicines Take kypj-ozk-pmebnjj and prescription medicines only as told by your health care provider or pharmacist. Ask your pharmacist what bdao-vap-gxmgnaf cold medicines you should avoid. Some medicines [...] search for a local or [facility] mental health care center. Public mental [...] 12/31/2017 Document Revised: 12/23/2019 Document Reviewed: 12/31/2017 [facility] Patient Education 2020 [facility] [employer] 07/21/2022 11:21:57 Tobacco Use Disorder Tobacco [...] reduces withdrawal symptoms. NRT is available as: ?Teac-spy-sreeuzm gums, lozenges, and skin patches. ?Prescription mouth [...] recovery for many people. General instructions Take ygxc-jek-zddzemj and prescription medicines only as told by your health care provider. Check with your health care provider before taking any new prescription or abdu-qah-dubzryp medicines. Decide on a friend, family member, or smoking quit-line (such as 7-712-KZMT-NOW in the [place] that you can call [...] 05/06/2005 Document Revised: 08/18/2018 Document Reviewed: 08/18/2018 [facility] Patient Education 2020 CMGE. 07/21/2022 11:21:55 BMI for Adults BMI for [...] height. This can be done either in Maltese ([place].S[place] or metric measurements. Note that charts are available to help you find your BMI quickly and easily without having to do these calculations yourself. To calculate your BMI in Maltese (U.S[place] measurements, your health care provider will: [...] medical problems. BMI can be measured using Maltese measurements or metric measurements. To interpret your [...] 05/12/2005 Document Revised: 08/13/2018 Document Reviewed: 07/14/2018 [facility] Patient Education 2020 CMGE. 07/21/2022 11:21:53 Leukocytosis Leukocytosis Leukocytosis means that [...] Follow these instructions at home: Medicines Take hagr-erq-mdiozmh and prescription medicines only as told by [...] 08/19/2012 Document Revised: 05/26/2019 Document Reviewed: 05/26/2019 [facility] Patient Education 2020 CMGE. Follow Up Care 07/18/2022 10:46:12 With:Aimee Walker CNP Address: When: only if needed [facility] 11-04-2022 Miscellaneous Notes* Telephone Encounter - Cat Rojo LPN - 07/18/2022 11:04 AM EDT Call placed to patient, no answer. Left message for patient to proceed with nicotine testing prior to scheduling. Please transfer to plastic surgery nurse if patient returns call with questions. [facility] Evaluation + Plan note Future Scheduled Tests Radiology* MRI Breast w/o and w/ Contrast, Left 05/13/22 * MA Mamm Screen w/CAD if perf and 3D Tanmay 04/21/22 [facility] [place] 08-30-2022 Hospital Discharge instructions Patient Education 05/13/2022 [...] ?Hypothyroidism. ?Polycystic ovarian syndrome (PCOS). ?Binge-eating disorder. ?Satn syndrome. Taking certain medicines, such as steroids, [...] food choices, such as grocery stores and [employer]. What are the signs or symptoms? The [...] and how much exercise you get. Take arhj-jpn-nxpmajv and prescription medicines only as told by [...] 10/08/2005 Document Revised: 05/05/2019 Document Reviewed: 05/05/2019 [facility] Patient Education 2019 CMGE. [facility] [place] [id number] Evaluation + Plan note Future Scheduled Tests Radiology* MA Mamm Screen w/CAD if perf and 3D Tanmay 04/21/22 [facility]08-08-2022 Hospital Discharge instructions Patient Education 04/21/2022 [...] height. This can be done either in Maltese (U.S[place] or metric measurements. Note that charts are available to help you find your BMI quickly and easily without having to do these calculations yourself. To calculate your BMI in Maltese ([place].S[place] measurements, your health care provider will: [...] medical problems. BMI can be measured using Maltese measurements or metric measurements. To interpret your [...] 05/12/2005 Document Revised: 08/13/2018 Document Reviewed: 07/14/2018 [facility] Patient Education 2020 CMGE. 04/21/2022 10:14:51 Lymphadenopathy Lymphadenopathy Lymphadenopathy means that [...] at home: Get plenty of rest. Take xfnk-phb-gkwbvum and prescription medicines only as told by your health care provider. Your health care provider may recommend gyfb-osi-tyvqelh medicines for pain. If directed, apply heat [...] 06/09/2009 Document Revised: 08/13/2018 Document Reviewed: 07/16/2018 [facility] Patient Education 2020 CMGE. 04/21/2022 10:14:49 Tobacco Use Disorder Tobacco Use [...] reduces withdrawal symptoms. NRT is available as: ?Aebh-cvy-fzbdjjq gums, lozenges, and skin patches. ?Prescription mouth [...] recovery for many people. General instructions Take ucbx-bfo-cwvntqi and prescription medicines only as told by your health care provider. Check with your health care provider before taking any new prescription or fpdt-mdu-ycnmlay medicines. Decide on a friend, family member, or smoking quit-line (such as 8-955-JZJI-NOW in the [place] that you can call [...] 05/06/2005 Document Revised: 08/18/2018 Document Reviewed: 08/18/2018 [facility] Patient Education 2020 [facility] Follow Up Care 04/17/2022 09:51:05 With:Aimee Walker CNP Address: When: only if needed [facility] 08-07-2022 Hospital Discharge instructions [...] at home: Get plenty of rest. Take nnbj-dvf-fobobdw and prescription medicines only as told by your health care provider. Your health care provider may recommend iakp-zjg-sysqdfv medicines for pain. If directed, apply heat [...] 06/09/2009 Document Revised: 08/13/2018 Document Reviewed: 07/16/2018 [facility] Patient Education [employer]. Follow Up Care 04/20/2022 14:55:22 With:Aimee Walker Address: [address] [place] [address] [place], [place] [address] [phone] Business (1) When:04/23/2022 16:08:48 Comments:Follow-up with your primary care provider in 3 to 5 days. If symptoms worsen, do not improve, or new symptoms arise please report back to emergency department for further evaluation. [facility]08-07-2022 Evaluation + Plan noteExtracted from: Title:ED Note Author:Codey GERONIMO, Dony Hodgson te:04/20/22 Axillary lymphadenopathy (R5 9.0: Localized enlarged lymph nodes) Orders: naproxen, 500 mg = 1 tab(s), Oral, BID, PRN for pain, # 20 tab(s), Refills(s) 0, Pharmacy: [facility]/pharmacy #[id number], 170, cm, 04/20/22 15:01:00 EDT, Height/Length Dosing, 81.5, kg, 04/20/22 15:01:00 EDT, Weight Dosing Automated Diff Basic Metabolic Panel CBC w/ Auto Diff eGFR XR Chest 2 Views Future Appointments Appointment Date:04/21/2022 09:40:00 AM Scheduled Provider:Aimee Walker CNP Location:[facility] Appointment Type:[facility]07-21-2022 Hospital Discharge instructions Patient Education [...] 03/15/2012 Document Revised: 08/24/2019 Document Reviewed: 08/24/2019 [facility] Patient Education 2020 CMGE. Follow Up Care 04/03/2022 16:59:04 With:Aimee Walker CNP Address: [phone] When:04/06/2022 [facility]06-17-2022 Miscellaneous Notes* Telephone Encounter - Lina Chavez RN - 02/28/2022 3:[address] Mckee, patient must be 4 weeks nicotine free prior to scheduling and collection of cosmetic payment. documented in this encounterC[facility]06-[facility] History of Present illness Narrative* Amee Gonzalez PA-C - 02/12/2022 10:38 AM EDT Images from the original note were not included. Otolaryngology Consultation/Evaluation Note Head and Neck [place] ASSESSMENT: Burning tongue (primary encounter diagnosis) Irritation of oral cavity PLAN: - Oral mucosa at floor of mouth, Denton's ducts, and frenulum irritated with mild erythema [...] Take 40 mg by mouth once daily. wyikhzgnikvu-kvs-jxru-FA-vit K (BARIATRIC MULTIVITAMINS) 45 mg iron- 800 [...] and tender to palpation specifically around b/l Denton's ducts and frenulum. Ventral aspect of tongue [...] Level: 3 - Low documented in [place]Chad [place]ille [address]-26-2022 Hospital Discharge instructions Patient Education 02/06/2022 09:33:48 [...] reduces withdrawal symptoms. NRT is available as: ?Bton-mzt-zsbdpjo gums, lozenges, and skin patches. ?Prescription mouth [...] recovery for many people. General instructions Take iwlf-dkz-bfhzftd and prescription medicines only as told by your health care provider. Check with your health care provider before taking any new prescription or sufp-thq-nddlsqa medicines. Decide on a friend, family member, or smoking quit-line (such as 9-381-YJEE-NOW in the [place] that you can call [...] 05/06/2005 Document Revised: 08/18/2018 Document Reviewed: 08/18/2018 [facility] Patient Education 2020 CMGE. 02/06/2022 09:33:46 BMI for Adults BMI for [...] height. This can be done either in Maltese ([place] or metric measurements. Note that charts are available to help you find your BMI quickly and easily without having to do these calculations yourself. To calculate your BMI in Maltese ([place].S.) measurements, your health care provider will: [...] medical problems. BMI can be measured using Maltese measurements or metric measurements. To interpret your [...] 05/12/2005 Document Revised: 08/13/2018 Document Reviewed: 07/14/2018 [facility] Patient Education 2020 [facility] [employer] Follow Up Care 02/05/2022 13:43:34 With:Aimee Walker CNP Address: When: only if needed [facility] 05-18-2022 Hospital Discharge instructions [...] height. This can be done either in Maltese ([place].S[place] or metric measurements. Note that charts are available to help you find your BMI quickly and easily without having to do these calculations yourself. To calculate your BMI in Maltese ([place].S[place] measurements, your health care provider will: [...] medical problems. BMI can be measured using Maltese measurements or metric measurements. To interpret your [...] 05/12/2005 Document Revised: 08/13/2018 Document Reviewed: 07/14/2018 [facility] Patient Education 2020 CMGE. 01/29/2022 11:02:54 Complicated Grief Complicated Grief Grief [...] friends and loved ones. General instructions Take egkw-rpe-yiixbqe and prescription medicines only as told by [...] 08/31/2006 Document Revised: 08/13/2018 Document Reviewed: 06/16/2018 [facility] Patient Education 2020 CMGE. 01/29/2022 11:02:50 Alcohol Abuse and Dependence Information, [...] for Disease Control and Prevention: www.cdc.gov National [place] on Alcohol Abuse and Alcoholism: www.niaaa.nih.gov Alcoholics [...] 08/25/2017 Document Revised: 12/20/2019 Document Reviewed: 11/08/2019 [facility] Patient Education 2020 [facility] 01/29/2022 11:02:46 Managing Bipolar Disorder Managing [...] Follow these instructions at home: Medicines Take tdua-jxi-lxzurnr and prescription medicines only as told by your health care provider or pharmacist. Ask your pharmacist what kwxw-bdq-tlgvodv cold medicines you should avoid. Some medicines [...] services is a problem, search for a [facility] or [facility] mental health care center. Public mental [...] 12/31/2017 Document Revised: 12/23/2019 Document Reviewed: 12/31/2017 [facility] Patient Education 2019 CMGE. [facility] 05-02-2022 Miscellaneous Notes* Telephone [...] another consult she would. Please advise at [phone] documented in this encounterC[facility]04-[facility]-2022 Miscellaneous Notes* Telephone Encounter - Rocio [...] put in a surgical slip. Patient understood. Rcoio Hester Ma documented in this encounterC[facility]05-21-2021 History of Present illness Narrative* Radha Jara - 02/01/2021 9:47 AM EDT CLINICAL PHARMACY NOTE: MEDS TO BEDS Total # of Prescriptions Filled: 2 The following medications were delivered to the patient: Percocet 5-325mg Augmentin 875-125mg Additional Documentation: delivered to patient in room 236 02/01 at 9:44am. Co- pay paid with credit on [employer] ($4.31). * Gamaliel Harris DO - 01/31/2021 [...] Singh RPH 19:00 PM documented in this encounterModeWalk Phone: 1(576) 368-194205-15-2021 History of Present illness Narrative* Jasmine Burch RN - 01/26/2021 1:51 PM EDT Infusion complete, no complications, IV out and dressing applied. Encouraged patient to call with any questions. Patient left unit with steady gait to private residence. documented in this [facility] Phone: 1(666) 212-179304-27-2021 History of Present illness Narrative* Radha Jara - 01/08/2021 5:59 PM EDT CLINICAL PHARMACY NOTE: MEDS TO [facility] Patient?: No Total # of Prescriptions Filled: 3 The following medications were delivered to the patient: Percocet 5-325mg Promethazine 25mg Pantoprazole 40mg Total # of Interventions Completed: 0 Time Spent (min): 0 Additional Documentation: delivered to patient in room 247 01/08 at 5:43pm. Co- pay paid with [employer] ($7.02). * Gal Atwood DO - 01/08/2021 [...] Morbid obesity with BMI of 40.0-44.9, adult ([facility]) [E66.01, Z68.41] 05/16/2020 30 y.o. [...] obtained for OR 01-07-21 documented in this [facility] Work Phone: 1(646) 935-272304-27-2021 Hospital Discharge instructions* Instructions* Gamaliel Harris DO - 01/08/2021 Discharge Instructions for Surgery You had a Tian-en- Y Gastric Bypass (48788) surgery to treat obesity. Recovery from this [...] scheduled appointment, please call the office at [phone]. Call Your Doctor If Any of the [...] emergency, call 911 immediately. documented in this [facility] Phone: 1([phone]) 476-795904-12-2021 Hospital Discharge instructions* Instructions* Mahesh Price APRN - LAB ASSISTANT - 12/24/2020 Images from the original note [...] drive you home after your procedure. Your bus driver supervisor must be 18 years of age or [...] questions, call the Pre-Admission Testing Unit at [phone]. Day of Surgery/Procedure As a patient at [facility] you can expect quality medical and nursing care that is centered on your individual needs. Our goal is to make your surgical experience as comfortableas possible . Directions to the Surgery Center [facility] is located at [address] [place] [address]. Please pull into the Emergency parking lot and stop at the grid trimmer arcos. We offer free grid trimmer service for all our surgery patients, if you choose not to have grid trimmer parking we have additional parking across the street.You will enter the facility following the [facility] sign. Please stop at the medical records receptionist desk where you will be checked in by the staff. If you have any questions please call [phone]. Transportation after your procedure. You will need a friend or family member to drive you home after your procedure. Your bus driver supervisor must be18 years of age or older [...] You may shave your face or neck. [place] your teeth but do not swallow water. [...] or the day of surgery, please call [phone], or [phone] documented in this [facility] Work Phone: 1(882) 671-731704-12-2021 History of Present illness Narrative* Mahesh Price [...] Anxiety Arthritis knees and back Bipolar disorder ([facility]) 11/25/[address]. Jacki Nicole for therapy Borderline personality disorder ([facility]) [facility], therapist Jacki Nicole Depression Flat feet, bilateral Foot pain, bilateral Dr. Octavio Sims, outdoor guide GERD (gastroesophageal reflux disease) managed by Dr. Harris Obesity Patient was evaluated in [facility] & anesthesia guidelines were applied. NPO [...] BLEVINS 12/24/20 11:38 AM documented in this [facility] Work Phone: evaluation + Plan note No data available for this section [facility] Evaluation + Plan note Referrals to Other Providers Referred by: Aimee Walker CNP [facility] Evaluation + Plan note Future Appointments Appointment Date:04/04/2022 02:40:00 PM Scheduled Provider:Rahul Salinas DO Location:[facility]ments Appointment [...] if perf and 3D Tanmay 04/21/22 [facility] Evaluation + Plan note Future Appointments Appointment Date:08/22/2022 10:20:00 AM Scheduled Provider:Rahul Salinas DO Location:[facility] Appointment Type: Hospital Follow Up w/TCM Future Scheduled Tests Laboratory* CBC w/ Auto Diff 07/21/22 Radiology* MA Mamm Screen w/CAD if perf and 3D Tanmay 04/21/22 [facility] Future Appointments Appointment Date:11/03/2022 01:00:00 PM Scheduled Provider:Nakia Shah Location:[facility] Appointment Type: Open Future Scheduled Tests Laboratory* CBC w/ Auto Diff 07/21/22 Radiology* MA Mamm Screen w/CAD if perf and 3D Tanmay 04/21/22 [facility] Future Appointments Appointment Date:01/02/2023 10:00:00 AM Scheduled Provider:Nakia Shah Location:[facility] Appointment Type: Open Future Scheduled Tests Laboratory* CBC w/ Auto Diff 07/21/22 Radiology* MA Mamm Screen w/CAD if perf and 3D Tanmay 04/21/22 [facility] Evaluation + Plan note Future Appointments Appointment Date:12/05/2022 09:00:00 AM Scheduled Provider: Location:[facility] Appointment Type:Surgery FT Appointment Date:01/02/2023 10:00:00 AM Scheduled Provider:Nakia Shah Location:[facility] Appointment Type:FM Open Future Scheduled Tests Laboratory* CBC w/ Auto Diff 07/21/22 Radiology* MA Mamm Screen w/CAD if perf and 3D Tanmay 04/21/22 [facility] Future Appointments Appointment Date:12/25/2023 10:15:00 AM Scheduled Provider:Chava BHAKTA, Otto Chester Location[facility] Appointment Type:[facility]iology [facility] ([facility]) [facility] Diagnosis Preop testing- Primary Preoperative examination, unspecified documented in this encounter [facility] Phone: evalinguce note* Diagnosis Post-op pain- Primary Other acute postoperative pain Status post gastric bypass for obesity Bariatric surgery status Morbid obesity with BMI of 40.0-44.9, adult (HCC) Hiatal hernia Diaphragmatic hernia without mention of obstruction or gangrene documented in this encounter [facility] Phone: evalitxnwu note* Diagnosis Dehydration documented in this encounter [facility] Phone: evalxowbzf note* Diagnosis Generalized abdominal pain- Primary Abdominal pain, generalized documented in this encounter [facility] Phone: evalkzgdst note* Diagnosis Surgery, elective- Primary Unspecified elective surgery for purposes other than remedying health states Omental infarction (HCC) Acute vascular insufficiency of intestine Intra-abdominal abscess (HCC) Peritoneal abscess documented in this encounter ModeWalk Phone: evalpiebiv note* Diagnosis Omental infarction (HCC) Acute vascular insufficiency of intestine documented in this encounter [employer] Phone: evalentagc note* Diagnosis Hypertrophy of breast- Primary Upper back pain Excess skin [facility] Diagnosis Burning tongue- Primary Glossodynia Irritation of oral cavity Other and unspecified diseases of the oral soft tissues documented in this encounter [facility] note* Diagnosis Onset Date Resolution Status Bipolar 1 disorder acute Blurry vision acute Borderline personality disorder acute Headache acute MDD (major depressive disorder) acute Palpitation acute [facility] Work Phone: Evaluation note* Diagnosis Idiopathic intracranial hypertension- Primary Benign intracranial hypertension Depression, unspecified depression type Primary hypertension Unspecified essential hypertension Hx of gastric bypass Bariatric surgery status H/O foot surgery Personal history of surgery to other organs [facility] assessment information [facility] Work Phone: Evaluation noteNo InformationNort [employer] Other Evaluation note* Diagnosis Panic disorder- Primary Panic disorder without agoraphobia Borderline personality disorder (HCC) Borderline personality disorder Bipolar affective disorder in remission (HCC) Chronic alcoholism in remission (HCC) Other and unspecified alcohol dependence, in remission Routine health maintenance Routine general medical examination at a health care facility documented [facility] Diagnosis Panic disorder- Primary Panic disorder without agoraphobia documented in this encounter [facility] note* Diagnosis Routine health maintenance- [...] disorder, unspecified type [facility] Diagnosis 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 documented [facility] this [facility]* Diagnosis Idiopathic intracranial hypertension Benign intracranial hypertension documented in this encounter [facility] general Narrative - Reported* Type Description Date Medical History plantar fasciitis Medical History migraine headache Medical History borderline personality disorder Medical History chronic depression Medical History bipolar Surgical History C section Surgical History c section Surgical History tubal ligation Surgical History HYSTERECTOMY Surgical History oral surgery Surgical History gastric bypass Hospitalization History mental health issues [employer] Other History general Narrative - Reported* Type Description Date Medical History plantar fasciitis Medical History migraine headache Medical History borderline personality disorder Medical History chronic depression Medical History bipolar Surgical History C section Surgical History c section Surgical History tubal ligation Surgical History HYSTERECTOMY Surgical History oral surgery Surgical History gastric bypass Hospitalization History mental health issues Hospitalization History [facility] [place] / 023 [employer] Other Hospital Discharge instructions No data available for this section [facility] Progress note No data available for this section [facility] Assessments Diagnosis Preoperative testing Preoperative examination, unspecified Diagnosis Gastroesophageal reflux disease with esophagitis without hemorrhage Advance Directives Documents on File Type Date Recorded 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 Weight Management center at documented in this encounter Reason for Referral Status Reason Specialty Diagnoses / Procedures Referre d By Contact Referred To Contact Closed Radiology Diagnoses Omental infarction (HCC) Procedures CT ABDOMEN PELVIS W IV CONTRAST Additional Contrast? Oral Gamaliel Harris, [address] [facility] [address] [place] [address] Specialty Diagnoses / Procedures Referred By Contdeya t Referred To Contact Ophthalmology Diagnoses Idiopathic intracranial hypertension Procedures CONSULT TO OPHTHALMOLOGY OFFICE/OUTPATIENT [facility] 60-74 MINUTES Eileen Manzano MD [address] [id number] Referral ID Status Reason Start Date Expiration Date Visits Requested Visits Authorized [id number] Authorized PCP Requested Referral 11/20/2022 11/20/2023 1 1 Specialty Diagnoses / Procedures Referred By Contac t Referred To Contact MR IMAGING Diagnoses Idiopathic intracranial hypertension Procedures MRV BRAIN WO/W IVCON MRA; HEAD W & WO CONTRAST Eileen Manzano MD [address] [id number] Mr Imaging Referral ID Status Reason Start Date Expiration Date Visits Requested Visits Authorized [id number] Pending Review Auto-Generat ed Referral 11/20/2022 12/20/2023 1 1 Specialty Diagnoses / Procedures Referred By Contac t Referred To Contact MR IMAGING Diagnoses Mass of upper outer quadrant of left breast Procedures MRI BREAST BX WO/W IVCON LEFT BX BREAST W/DEVICE 1ST LESION [place] [address] [place] [address] Mr Imaging [facility] Referral ID Status Reason Start Date Expiration Date Visits Requested Visits Authorized [id number] Pending Review Auto-Generat ed Referral 03/08/2024 04/07/2025 1 1 Specialty Diagnoses / Procedures Referred By Contac t Referred To Contact Diagnoses Class 1 obesity due to excess calories without serious comorbidity with body mass index (BMI) of 30.0 to 30.9 in adult Procedures ENDOCRINE MEDICAL WEIGHT MANAGEMENT OFFICE/OUTPATIENT [facility] 60 [place] [address] [place] [address] Referral ID Status Reason Start Date Expiration Date Visits Requested Visits Authorized [id number] Authorized PCP Requested Referral 03/08/2024 03/08/2025 1 1 Specialty Diagnoses / Procedures Referred By Contac t Referred To Contact MR IMAGING Diagnoses Pancreas cyst Procedures MRI 3D POST PROCESSING 3D RENDERING W/INTERP&POSTPROC DIFF WORK STATION Leonela Grossman MD [address] [place] [address] Mr Imaging [facility] Referral ID Status Reason Start Date Expiration Date V isits Requested Visits Authorized [id number] Closed Auto-Generate d Referral 08/31/2023 09/29/2024 1 1 Specialty Diagnoses / Procedures Referred By Contac t Referred To Contact MR IMAGING Diagnoses Pancreas cyst Procedures MRI PANC/TANMAY WO/W IVCON MRI ABDOMEN W/O & W/CONTRAST MATERIAL Leonela Grossman MD [address] [place] [address] Mr Imaging [place] [address] Referral ID Status Reason Start Date Expiration Date V isits Requested Visits Authorized [id number] Closed Auto-Generate d Referral 03/01/2024 03/31/2024 1 1 Specialty Diagnoses / Procedures Referred By Contac t Referred To Contact MR IMAGING Diagnoses Idiopathic intracranial hypertension Procedures MRV BRAIN WO/W IVCON MRA; HEAD W & WO Eileen Dang MD [address] [place] [address] Mr Imaging [place] [address] Referral ID Status Reason Start Date Expiration Date V isits Requested Visits Authorized [id number] Closed Auto-Generate d Referral 01/29/2023 02/28/2023 1 [...] and content) DATE CREATED AUTHOR 10/06/2020 [facility] [employer] [facility] DATE CREATED AUTHOR AUTHOR'S ORGANIZ ATION 01/06/[address] [facility] DATE CREATED AUTHOR AUTHOR'S ORGANIZ ATION 08/16/2022 [facility] DATE CREATED AUTHOR AUTHOR'S ORGANIZ ATION 11/15/2022 [facility] DATE CREATED AUTHOR AUTHOR'S ORGANIZ ATION 08/17/2023 [facility] DATE CREATED AUTHOR AUTHOR'S ORGANIZ ATION 09/04/2023 [facility] DATE CREATED AUTHOR AUTHOR'S ORGANIZ ATION 10/26/2023 [facility] DATE CREATED AUTHOR AUTHOR'S ORGANIZ ATION 01/14/2024 [facility] DATE CREATED AUTHOR AUTHOR'S ORGANIZ ATION 03/12/2024 [facility] DATE CREATED AUTHOR AUTHOR'S ORGANIZ ATION 05/21/2024 [facility] DATE CREATED AUTHOR AUTHOR'S ORGANIZ ATION 05/31/2024 [facility] Reason for Visit (unrecogniz ed section and content) Status Reason Specialty Diagnoses / Procedures Re ferred By Contact Referred To Contact Diagnoses GERD (gastroesophageal reflux disease) GERD/OBESITY Procedures MA ESOPHAGOGASTRODUODENOSCOPY TRANSORAL DIAGNOSTIC EGD ESOPHAGOGASTRODUODENOSCOPY Gamaliel Harris DO [address] [facility] [address] [place] [address] [place] Status Reason Specialty Diagnoses / Procedures Referre d By Contact Referred To Contact Closed Radiology Diagnoses Gastro-esophageal reflux disease with esophagitis, without bleeding Procedures CHG RADIOLOGIC EXAM UPR GI TRC SINGLE CONTRAST STUDY Gamaliel Harris DO [address] [place] [address] [facility] Radiology [address] [place] [address] Status Reason Specialty Diagnoses / Procedures Referre d By Contact Referred To Contact Diagnoses Morbid obesity (HCC) GERD (gastroesophageal reflux disease) MORBID OBESITY, GERD Procedures MA LAP GASTRIC BYPASS/TIAN-EN-Y XI LAPAROSCOPIC ROBOTIC GASTRIC BYPASS TIAN-EN-Y, LIVER BIOPSY, EGD- GI UNIT SCHEDULED. Gamaliel Harris DO [address] [place] [address] [place] [address] Reason Comments Abdominal Pain Diffuse cramping and bloating. Onset 2 days ago. Pt reports she is 3.5weeks post Gastric bypass. Last BM this AM Reason Comments Abdominal Pain possible abscess Status Reason Specialty Diagnoses / Procedures Referre d By Contact Referred To Contact Diagnoses Intra-abdominal abscess (HCC) Omental infarction (HCC) Gamaliel Harris DO [address] [facility] [address] [place] [phone] [facility] Status Reason Specialty Diagnoses / Procedures Referre d By Contact Referred To Contact Closed Radiology Diagnoses Omental infarction (HCC) Procedures CT ABDOMEN PELVIS W IV CONTRAST Additional Contrast? Oral Gamaliel Harris DO [address] [facility] [address] [place] [address] Reason Comments Orders Reason Comments Patient Question [...] present [K21.9] Obesity (BMI 30-39.9) [E66.9] Procedures MA EGD TRANSORAL BIOPSY SINGLE/MULTIPLE MA ESOPHAGOGASTRODUODENOSCOPY TRANSORAL DIAGNOSTIC MA EGD BALLOON DILATION ESOPHAGUS <30 MM DIAM EGD BIOPSY Gamaliel Harris DO [address] [facility] [address] [place] [address] [facility] [address] [place] [address] Referral ID Status Reason Start Date Expiration Date Visits Re quested Visits Authorized [id number] 1 1 Reason Comments Establish Care Panic [...] W/O & W/CONTRAST MATERIAL Leonela Grossman MD [address] [phone] Mr Imaging [place] [address] Referral ID Status Reason Start Date Expiration Date V isits Requested Visits Authorized [id number] Closed Auto-Generate d Referral 03/01/2024 03/31/2024 1 1 Reason Onset Date Comments ACM EDYTA RN 05/30/2024 ED Utilizatio n review per request of payer Specialty Diagnoses / Procedures Referred By Contac t Referred To Contact MR IMAGING Diagnoses Idiopathic intracranial hypertension Procedures MRV BRAIN WO/W IVCON MRA; HEAD W & WO CONTRAST Eileen Manzano MD [address] [place] [address] Mr Imaging [place] [address] Referral ID Status Reason Start Date Expiration Date V isits Requested Visits Authorized [id number] Closed Auto-Generate d Referral 01/29/2023 02/28/2023 1 [...] 1 dose 1142 (Given - Provid er: [facility]) iopamidol (ISOVUE-370) 76 % injection 75 mL (COMPLETED) 75 mL, Intravenous, IMG ONCE PRN, Other, Starting on Thu01/30/21 at 1137, For 1 dose 1142 (Given - Provid er: [facility]) Scheduled Medication Order 01/30/2021 01/31/2021 [...] Palacios, MARCO)0635 (New Bag - Provider: Heather Palacios, MARCO)0940 (Stopped - Provider: Wei Carter, MARCO)1257 [...] or prosecute any alcohol or drug abuse patient.[facility] the event this information is protected by the Federal Confidentiality of Alcohol and Drug Abuse Patient Records regulations: The Federal rules restrict any use of the information to criminally investigate or prosecute any alcohol or drug abuse patient.[facility] Hospital[facility] the event this information is protected by the Federal Confidentiality of Alcohol and Drug Abuse Patient Records regulations: The Federal rules restrict any use of the information to criminally investigate or prosecute any alcohol or drug abuse patient.[facility] the event this information is protected by the Federal Confidentiality of Alcohol and Drug Abuse Patient Records regulations: The Federal rules restrict any use of the information to criminally investigate or prosecute any alcohol or drug abuse patient.[facility] the event this information is protected by the Federal Confidentiality of Alcohol and Drug Abuse Patient Records regulations: The Federal rules restrict any use of the information to criminally investigate or prosecute any alcohol or drug abuse patient.[facility] Hospital[facility] the event this information is protected by the Federal Confidentiality of Alcohol and Drug Abuse Patient Records regulations: The Federal rules restrict any use of the information to criminally investigate or prosecute any alcohol or drug abuse patient.[facility] Hospital[facility] the event this information is protected by the Federal Confidentiality of Alcohol and Drug Abuse Patient Records regulations: The Federal rules restrict any use of the information to criminally investigate or prosecute any alcohol or drug abuse patient.[facility] Hospital[facility] the event this information is protected by the Federal Confidentiality of Alcohol and Drug Abuse Patient Records regulations: The Federal rules restrict any use of the information to criminally investigate or prosecute any alcohol or drug abuse patient.[facility] Hospital[facility] the event this information is protected by the Federal Confidentiality of Alcohol and Drug Abuse Patient Records regulations: The Federal rules restrict any use of the information to criminally investigate or prosecute any alcohol or drug abuse patient.[facility] Hospital[facility] the event this information is protected by the Federal Confidentiality of Alcohol and Drug Abuse Patient Records regulations: The Federal rules restrict any use of the information to criminally investigate or prosecute any alcohol or drug abuse patient.[facility] Hospital[facility] the event this information is protected by the Federal Confidentiality of Alcohol and Drug Abuse Patient Records regulations: The Federal rules restrict any use of the information to criminally investigate or prosecute any alcohol or drug abuse patient.[facility] Hospital[facility] the event this information is protected by the Federal Confidentiality of Alcohol and Drug Abuse Patient Records regulations: The Federal rules restrict any use of the information to criminally investigate or prosecute any alcohol or drug abuse patient.[facility] the event this information is protected by the Federal Confidentiality of Alcohol and Drug Abuse Patient Records regulations: The Federal rules restrict any use of the information to criminally investigate or prosecute any alcohol or drug abuse patient.[facility] Hospital[facility] the event this information is protected by the Federal Confidentiality of Alcohol and Drug Abuse Patient Records regulations: The Federal rules restrict any use of the information to criminally investigate or prosecute any alcohol or drug abuse patient.[facility] Hospital[facility] the event this information is protected by the Federal Confidentiality of Alcohol and Drug Abuse Patient Records regulations: The Federal rules restrict any use of the information to criminally investigate or prosecute any alcohol or drug abuse patient.[facility] Hospital[facility] the event this information is protected by the Federal Confidentiality of Alcohol and Drug Abuse Patient Records regulations: The Federal rules restrict any use of the information to criminally investigate or prosecute any alcohol or drug abuse patient.[facility] Care Team (unrecognized sect ion and [...] Active Yoli Norris MD Emergency Provider Active Night Clerk Auditor Relationship Specialty Start Date End Date Jennie Ames, [address] [facility] [place] [address] PCP - General Family Medicine 11/19/22 Team [...] December 31, 2023 End: December 31, 2023 Night Clerk Auditor Relationship Specialty [place] [address] [place] [address] PCP - General Family Medicine 01/04/24 Nilo Prado MD [address] [place] [address] Referring Gastroenterology 08/17/23 Night Clerk Auditor Relationship Specialty [place] [address] [place] [address] PCP - General Family Medicine 01/04/24 Nilo Prado MD [address] [place] [address] Referring Gastroenterology 08/17/23 Night Clerk Auditor Relationship Specialty [place] [address] [place] [address] PCP - General Family Medicine 01/04/24 Nilo Prado MD [address] [place] [address] Referring Gastroenterology 08/17/23 Night Clerk Auditor Relationship Specialty [place] [address] [place] [address] PCP - General Family Medicine 01/04/24 Nilo Prado MD [address] [place] [address] Referring Gastroenterology 08/17/23 Night Clerk Auditor Relationship Specialty [place] [address] [place] [address] PCP - General Family Medicine 01/04/24 Nilo Prado MD [address] [place] [address] Referring Gastroenterology 08/17/23 Night Clerk Auditor Relationship Specialty [place] [address] [place] [address] PCP - General Family Medicine 05/30/24 Nilo Prado MD [address] [place] [address] Referring Gastroenterology 08/17/23 Goals (unrecognized section and [...] BE BASED ON THE PRIMARY CLINICAL RECORDS. [facility] provides no warranty or guarantee of the accuracy or completeness of information in this document.
--- NOTE | 2024-07-02 11:39 | ED.GENADUL1 ---
HPI HPI - General Adult General Chief complaint: Shortness of Breath/Dyspnea Stated complaint: SHORTNESS OF BREATH Time Seen by Provider: 07/02/24 10:01 Source: patient Mode of arrival: walk-in History of Present Illness HPI narrative: The patient is coming to us with retrosternal chest discomfort and pressure she mentioned that she went to her primary care yesterday where he did the EKG and told her that if she is having any chest pain need to go to the ER The patient denies any nausea vomiting but she does have some chest discomfort mostly pressure-like associated with shortness of breath that comes and goes with no relation to taking deep breath or movement and the patient denies any history of acid reflux Almost 10 days ago she started detox from alcohol and she is 11 days June The patient denies any other concern Related Data Home Medications ?Medication ?Instructions ?Recorded ?Confirmed cholecalciferol (vitamin D3) 125 5,000 unit PO .COMPLEX 06/10/23 04/08/24 mcg (5,000 unit) capsule duloxetine 60 mg capsule,delayed 60 mg PO BID 06/10/23 04/08/24 release acetazolamide 250 mg tablet 250 mg PO Q12H 07/10/23 04/08/24 brexpiprazole 4 mg tablet (Rexulti) 4 mg PO DAILY 07/10/23 04/08/24 buspirone 5 mg tablet 5 mg PO BID 10/14/23 04/08/24 trazodone 100 mg tablet 50 mg PO BEDTIME 10/14/23 04/08/24 semaglutide 0.25 mg or 0.5 mg (2 0.5 mg subcut QWEEK 12/19/23 04/08/24 mg/3 mL) subcutaneous pen injector clonazepam 0.5 mg tablet 0.5 mg PO PRN 04/08/24 04/08/24 lamotrigine 25 mg tablet 25 mg PO TID 04/08/24 04/08/24 naltrexone 50 mg tablet 50 mg PO .once daily 04/08/24 04/08/24 tirzepatide 2.5 mg/0.5 mL 2.5 mg subcut .once a week 04/08/24 04/08/24 subcutaneous pen injector (Yolande) Previous Rx's ?Medication ?Instructions ?Recorded ondansetron 4 mg disintegrating 4 mg PO Q6H PRN nausea/vomiting 08/14/23 tablet #20 tabs meclizine 25 mg tablet 25 mg PO TID PRN dizziness #20 tabs 10/14/23 lorazepam 1 mg tablet (Ativan) 1 mg PO Q8H PRN alcohol withdrawal 06/12/24 3 days #10 tabs ondansetron 4 mg disintegrating 4 mg PO Q6H PRN nausea and 06/12/24 tablet vomiting #20 tabs Allergies Allergy/AdvReac Type Severity Reaction Status Date / Time buspirone (From BuSpar) Allergy Intermediate tachycardia Verified 05/23/24 06:37 aripiprazole (From Abilify) Allergy Unknown Verified 05/23/24 06:37 COCONUT Allergy Mild Hives Uncoded 05/23/24 06:37 Opioid HPI Opioid Management Most Recent Opioid Data: Last Pain Scale 2 10/14/23 15:35 10/14/23 Review of Systems ROS Status of ROS 10 or more systems reviewed and unremarkable except as noted in history and below PFSH PFSH Social History Smoking status: Current every day smoker Little interest or pleasure in doing things: not at all Feeling down, depressed, or hopeless: not at all Exam Narrative Exam Narrative: Nurses notes and vital signs reviewed and patient is not hypoxic. General: Well-appearing and in no apparent distress. Skin: Warm, dry, no pallor noted. No rash. Head: Normocephalic, atraumatic. Neck: Supple, non-tender. Eye: Pupils are equal, round and EOMI. No scleral icterus. Ears, Nose, Mouth, and Throat: TM are clear, no nasal mucosal hypertrophy. Oral mucosa is moist, no posterior oropharynx erythema, uvula is mid-line Cardiovascular: Regular Rate and Rhythm without murmur, gallop or rub. Respiratory: No accessory muscle use or respiratory distress. Lungs are clear to auscultation, no wheezing, rales or rhonchi Chest Wall: no tenderness Back: No midline thoracic or lumbar vertebral tenderness. No CVA tenderness Musculoskeletal: normal ROM, no calf or popliteal tenderness, no lower extremity edema/swelling GI: Abdomen is soft, non-distended. Normal bowel sounds. No masses appreciated. No tenderness to palpation. No rebound, guarding, or rigidity noted. Neurological: A&O x4. No cranial nerve dysfunction observed. No truncal ataxia. Moves all extremities. Sensation intact. Psychiatric: Cooperative and interactive. Normal mood and affect. Constitutional Vital Signs, click to edit/add: Last Vital Signs Temp 98.1 F 07/02/24 09:50 Pulse 71 07/02/24 11:45 Resp 16 07/02/24 11:45 BP 139/86 07/02/24 11:45 Pulse Ox 99 07/02/24 11:45 O2 Del Method Room Air 07/02/24 11:45 Course Vital Signs Vital signs: Vital Signs Temperature 98.1 F 07/02/24 09:50 Pulse Rate 86 07/02/24 09:50 Respiratory Rate 20 07/02/24 09:50 Blood Pressure 120/90 07/02/24 09:50 Pulse Oximetry 100 07/02/24 09:50 Oxygen Delivery Method Room Air 07/02/24 09:50 Temperature 98.1 F 07/02/24 09:50 Pulse Rate 71 07/02/24 11:45 Respiratory Rate 16 07/02/24 11:45 Blood Pressure 139/86 07/02/24 11:45 Pulse Oximetry 99 07/02/24 11:45 Oxygen Delivery Method Room Air 07/02/24 11:45 Medical Decision Making MDM Narrative Medical decision making narrative: The patient EKG showing sinus rhythm with a heart rate of [address] elevation or depression The patient CBC and chemistry showed no acute pathology Chest x-ray was within normal and troponin was negative The patient did mention that she have a family history of having cardiac disease on young age Right now she was referred to cardiology as outpatient for further evaluation and possible stress test in case of recurrent chest pain The patient is to follow up with primary care physician in next 2-3 days or to return to the emergency department should any of the signs or symptoms worsen or new symptoms develop. The patient agrees with the following Diagnosis and Treatment plan and the patient will be discharged home. Lab Data Labs: Lab Results 07/02/24 07/02/24 Range/Units 10:24 10:35 WBC 9.5 (4.0-11.0) 10^3/uL RBC 3.86 L (4.20-5.40) 10^6/uL Hgb 12.2 (12.0-16.0) g/dL Hct 36.6 (36.0-48.0) % MCV 94.8 (81.0-99.0) fL MCH 31.6 (26.7-34.0) pg MCHC 33.3 (29.9-35.2) g/dL RDW 16.6 H (11.0-15.0) % Plt Count 362 (150-450) 10^3/uL MPV 10.6 (9.5-13.5) fL Neut % (Auto) 74.5 (43.0-75.0) % Lymph % (Auto) 17.2 L (20.5-60.0) % [place] % (Auto) 6.6 (1.7-12.0) % Eos % (Auto) 0.9 (0.9-7.0) % Baso % (Auto) 0.5 (0.2-2.0) % Neut # (Auto) 7.1 H (1.4-6.5) 10^3/uL Lymph # (Auto) 1.6 (1.2-3.8) 10^3/uL [place] # (Auto) 0.6 (0.3-0.8) 10^3/uL Eos # (Auto) 0.1 (0.0-0.7) 10^3/uL Baso # (Auto) 0.1 (0.0-0.1) 10^3/uL Abs Immat Gran (auto) 0.03 (0.00-0.03) 10^3/uL Imm/Tot Granulo (auto) 0.3 (0.0-0.5) % Sodium 143 (136-145) mmol/L Potassium 4.1 (3.5-5.1) mmol/L Chloride 106 (98-107) mmol/L Carbon Dioxide 25.4 (21.0-32.0) mmol/L Anion Gap 15.7 BUN 8.0 (7.0-18.0) mg/dL Creatinine 0.75 (0.55-1.02) mg/dL Est GFR ( Amer) >60 (>=60 mL/min/1.73m^2) Est GFR (Non-Af Amer) >60 (>=60 mL/min/1.73m^2) BUN/Creatinine Ratio 10.7 Glucose 93 (74-106) mg/dL Calcium 9.3 (8.5-10.1) mg/dL Magnesium 1.9 (1.8-2.4) mg/dL Total Bilirubin 0.3 (0.2-1.0) mg/dL AST 15 (15-37) U/L ALT 21 (14-59) U/L Alkaline Phosphatase 62 (46-116) U/L Troponin I High Sens 4.1 (4.0-51.3) pg/mL Total Protein 6.9 (6.4-8.2) g/dL Albumin 3.5 (3.4-5.0) g/dL Globulin 3.4 g/dL Albumin/Globulin Ratio 1.0 Serum HCG, Qual Negative (NEGATIVE) Urine Color Yellow (YELLOW) Urine Clarity Clear (CLEAR) Urine pH 6.0 (5.0-9.0) Ur Specific [place] 1.010 (1.005-1.025) Urine Protein Negative (NEG/TRACE) mg/dL Urine Glucose (UA) Negative (NEGATIVE) mg/dL Urine Ketones Negative (NEGATIVE) mg/dL Urine Occult Blood Negative (NEGATIVE) Urine Nitrite Negative (NEGATIVE) Urine Bilirubin Negative (NEGATIVE) Urine Urobilinogen 0.2 (0.2-1.0) EU/dL Ur Leukocyte Esterase Negative (NEGATIVE) Discharge Plan Discharge Chief Complaint: Shortness of Breath/Dyspnea Clinical Impression: Chest pain Patient Disposition: Home, Self-Care Time of Disposition Decision: 11:37 Condition: Good Mode of Transportation: Private Vehicle Prescriptions / Home Meds: No Action cholecalciferol (vitamin D3) 125 mcg (5,000 unit) capsule 5,000 unit PO .COMPLEX Rx Instructions: 5,000 units orally weekly; duloxetine 60 mg capsule,delayed release(DR/EC) 60 mg PO BID acetazolamide 250 mg tablet 250 mg PO Q12H Rexulti 4 mg tablet 4 mg PO DAILY semaglutide 0.25 mg or 0.5 mg (2 mg/3 mL) pen injector 0.5 mg subcut QWEEK Rx Instructions: for 4 weeks naltrexone 50 mg tablet 50 mg PO .once daily Mounjaro 2.5 mg/0.5 mL pen injector 2.5 mg SUBCUT .once a week lamotrigine 25 mg tablet 25 mg PO TID clonazepam 0.5 mg tablet 0.5 mg PO PRN ondansetron 4 mg tablet,disintegrating 4 mg PO Q6H PRN (Reason: nausea/vomiting) Qty: 20 0RF buspirone 5 mg tablet 5 mg PO BID trazodone 100 mg tablet 50 mg PO BEDTIME meclizine 25 mg tablet 25 mg PO TID PRN (Reason: dizziness) Qty: 20 0RF lorazepam [Ativan] 1 mg tablet 1 mg PO Q8H PRN (Reason: alcohol withdrawal) 3 Days Qty: 10 0RF ondansetron 4 mg tablet,disintegrating 4 mg PO Q6H PRN (Reason: nausea and vomiting) Qty: 20 0RF Print Language: French Instructions: Chest Pain (DC) Referrals: Dr Tijerina [Other] - 1 week Physician,Non-Staff, MD [Primary Care Provider] - 1 week Discharge Date/Time: 07/02/24 11:45
== END 2024-07-02 11:45 | disposition home or self-care (01) ==
PROVIDERS: Emergency Provider Emergency Medicine
DX: R07.9 Chest pain, unspecified (principal); F17.200 Nicotine dependence, unspecified, uncomplicated
CPT/HCPCS: 36415; 71045; 80053; 81003; 83735; 84484; 84703; 85025; 93005; 99285

== ENCOUNTER 2024-07-22 13:28 | Emergency (ER) | payer MEDICARE, MEDICAID, SELFPAY ==
[2024-07-22 13:38] VITALS: BP 133/89; PULSE 88; TEMP 37.3; O2SAT 98; BMI 28.2
[2024-07-22] MEDS: ONDANSETRON 4 MG RAPDIS TABLET SL (13:52)
[2024-07-22 14:03] LABS: Basophils Absolute Auto 0.1 10^3/uL (0.0-0.1); Basophils Percent Auto 0.6 % (0.2-2.0); Eosinophils Absolute Auto 0.2 10^3/uL (0.0-0.7); Hematocrit 38.8 % (36.0-48.0); Hemoglobin 12.9 g/dL (12.0-16.0); Immature Granulocytes Abs Auto 0.03 10^3/uL (0.00-0.03); Immature Granulocytes Pct Auto 0.3 % (0.0-0.5); Lymphocytes Absolute Auto 2.3 10^3/uL (1.2-3.8); Lymphocytes Percent Auto 21.3 % (20.5-60.0); Mean Corpuscular HGB Conc 33.2 g/dL (29.9-35.2); Mean Corpuscular Hemoglobin 31.2 pg (26.7-34.0); Mean Corpuscular Volume 93.9 fL (81.0-99.0); Monocytes Absolute Auto 0.7 10^3/uL (0.3-0.8); Monocytes Percent Auto 6.1 % (1.7-12.0); Neutrophils Absolute Auto 7.5 10^3/uL (1.4-6.5); Neutrophils Percent Auto 69.7 % (43.0-75.0); Platelet Count 304 10^3/uL (150-450); Red Blood Count 4.13 10^6/uL (4.20-5.40); Red Cell Distribution Width 16.1 % (11.0-15.0); White Blood Count 10.7 10^3/uL (4.0-11.0)
[2024-07-22 14:04] LABS: Bilirubin Urine NEGATIVE (NEGATIVE); Blood Urine NEGATIVE (NEGATIVE); Clarity Urine CLEAR (CLEAR); Color Urine YELLOW (YELLOW); Glucose Urine UA NEGATIVE (NEGATIVE); Ketones Urine NEGATIVE (NEGATIVE); Leukocyte Esterase Urine NEGATIVE (NEGATIVE); Nitrite Urine NEGATIVE (NEGATIVE); Protein Urine NEGATIVE (NEG/TRACE); Urobilinogen Urine 0.2 EU/dL (0.2-1.0); pH Urine 6.5 (5.0-9.0)
--- NOTE | 2024-07-22 14:05 | PC.NURSE ---
Patient is here today due to anxiousness with having problems sleeping and eating. Denies being homicidal and or suicidal. Is having problems getting with a psychiatrist and wants something to just calm her down.
[2024-07-22 14:12] LABS: Bacteria Urine NONE SEEN #/HPF (NONE SEEN); Cast Seen? NONE SEEN #/LPF (NONE SEEN); Crystals Seen? None Seen #/HPF (None Seen); Mucus Urine NONE SEEN (NONE SEEN); RBC Urine NONE SEEN #/HPF (0-2); Squamous Epithelial Cell Urine RARE #/LPF (NONE/RARE); Urine Culture Indicated NO; WBC Urine NONE SEEN #/HPF (NONE SEEN)
[2024-07-22 14:13] LABS: Alanine Aminotransferase 13 U/L (14-59); Albumin Level 3.7 g/dL (3.4-5.0); Alkaline Phosphatase 65 U/L (46-116); Anion Gap 16.4; Aspartate Amino Transferase 14 U/L (15-37); BUN Creatinine Ratio 10.7; Bilirubin Total 0.3 mg/dL (0.2-1.0); Calcium 9.3 mg/dL (8.5-10.1); Carbon Dioxide 24.6 mmol/L (21.0-32.0); Chloride 107 mmol/L (98-107); Estimated GFR (African America >60 (>=60 mL/min/1.73m^2); Estimated GFR (Non-African Ame >60 (>=60 mL/min/1.73m^2); Globulin 3.7 g/dL; Glucose 88 mg/dL (74-106); Sodium 144 mmol/L (136-145); Total Protein 7.4 g/dL (6.4-8.2)
[2024-07-22 14:21] LABS: Thyroid Stimulating Hormone 1.108 uIU/mL (0.358-3.740)
[2024-07-22] MEDS: LORAZEPAM 0.5 MG TABLET 0.25 MG PO ×2 (14:42→15:25)
--- NOTE | 2024-07-22 15:19 | ED.ANXIETY1 ---
HPI - Anxiety General Chief Complaint: Anxiety Stated Complaint: ANXIETY/ GENERAL WEAKNESS Time Seen by Provider: 07/22/24 13:34 Source: patient Mode of arrival: walk-in Limitations: no limitations History of Present Illness HPI narrative: 33-year-old female presents here with a chief complaint of generalized anxiety and stress. She is 31 days sober. She states she does not feel like she needs to drink alcohol but she is having trouble dealing with daily activities. She states she has had loss of 3 significant family members including mother, father, and grandfather. Patient denies any suicidal homicidal ideation. She states she saw her primary care physician to ask for something to help with her anxiety and he did not want to give her any medications due to her history of alcoholism. Oriented shows no signs of distress other than mild agitation. She denies any alcohol at this time. Related Data Home Medications ?Medication ?Instructions ?Recorded ?Confirmed duloxetine 60 mg capsule,delayed 60 mg PO BID 06/10/23 07/22/24 release lamotrigine 25 mg tablet 25 mg PO TID 04/08/24 07/22/24 Previous Rx's ?Medication ?Instructions ?Recorded citalopram 20 mg tablet (Celexa) 20 mg PO DAILY #30 tabs 07/22/24 Allergies Allergy/AdvReac Type Severity Reaction Status Date / Time buspirone (From BuSpar) Allergy Intermediate tachycardia Verified 05/23/24 06:37 aripiprazole (From Abilify) Allergy Unknown Verified 05/23/24 06:37 COCONUT Allergy Mild Hives Uncoded 05/23/24 06:37 Review of Systems ROS Narrative All Systems are negative except as noted/marked.All systems reviewed and otherwise negative [facility] Social History Smoking status: Current every day smoker Little interest or pleasure in doing things: nearly every day Feeling down, depressed, or hopeless: nearly every day Exam Narrative Exam Narrative: All Systems are negative except as noted/marked.All systems reviewed and otherwise negative Nurses note and vital signs reviewed and patient is not hypoxic. General: The patient appears anxious but no suicidal or homicidal Patient is resting comfortably on cart. Skin: Warm, dry, no pallor noted. There is no rash noted. Head: Normocephalic, atraumatic Eye: Normal conjunctiva, no drainage, EOMI. PERRL Ears, Nose, Mouth, and Throat: oral mucosa is moist. Nares patent. Mouth without vesicles. Ear canals patent. Tm's without Erythema Cardiovascular: Regular Rate and Rhythm Respiratory: Patient is in no distress, no accessory muscle use, lungs are clear to auscultation, no wheezing, rales or rhonchi Back: non-tender, no CVA tenderness bilaterally to percussion. Musculoskeletal: The patient has no evidence of calf tenderness, no pitting edema, symmetrical pulses noted bilaterally Neurological: A&O x4, normal speech Psychiatric: Cooperative, anxious Constitutional Vital Signs, click to edit/add: Last Vital Signs Temp 99.1 F 07/22/24 13:38 Pulse 88 07/22/24 13:38 Resp 18 07/22/24 13:38 BP 133/89 07/22/24 13:38 Pulse Ox 98 07/22/24 13:38 O2 Del Method Room Air 07/22/24 13:38 Course Vital Signs Vital signs: Vital Signs Temperature 99.1 F 07/22/24 13:38 Pulse Rate 88 07/22/24 13:38 Respiratory Rate 18 07/22/24 13:38 Blood Pressure 133/89 07/22/24 13:38 Pulse Oximetry 98 07/22/24 13:38 Oxygen Delivery Method Room Air 07/22/24 13:38 Temperature 99.1 F 07/22/24 13:38 Pulse Rate 88 07/22/24 13:38 Respiratory Rate 18 07/22/24 13:38 Blood Pressure 133/89 07/22/24 13:38 Pulse Oximetry 98 07/22/24 13:38 Oxygen Delivery Method Room Air 07/22/24 13:38 MDM - Anxiety MDM Narrative Medical decision making narrative: 33-year-old female presents here with a chief complaint of generalized anxiety and stress. She is 31 days sober. She states she does not feel like she needs to drink alcohol but she is having trouble dealing with daily activities. She states she has had loss of 3 significant family members including mother, father, and grandfather. Patient denies any suicidal homicidal ideation. She states she saw her primary care physician to ask for something to help with her anxiety and he did not want to give her any medications due to her history of alcoholism. Oriented shows no signs of distress other than mild agitation. She denies any alcohol at this time. Patient presented here chief complaint of anxiety. Patient has been medically cleared. LABS REVIEWED she was medicated with 1 dose of 0.25 mg Ativan. We will discharge her home with 1 more dose of that as well. I discussed starting Celexa with the patient. Patient agrees she will start this. She will follow-up with her primary care physician. Patient spoke to [facility] today. They discussed with her coping mechanisms. Did not feel she is a threat to herself. Patient agrees with plan of care will follow-up with her scheduled appointment with her counselor. She denies the need or want to drink alcohol. She just wants to get over this hump. Patient agrees with plan of care. denies Suicidal homicidal ideation Differential Diagnosis Differential diagnosis: Likely acute anxiety Medical Records Attestation: I reviewed the patient's medical records. Lab Data Attestation: I reviewed the patient's lab results. Labs: Lab Results 07/22/24 07/22/24 Range/Units 13:48 13:51 WBC 10.7 (4.0-11.0) 10^3/uL RBC 4.13 L (4.20-5.40) 10^6/uL Hgb 12.9 (12.0-16.0) g/dL Hct 38.8 (36.0-48.0) % MCV 93.9 (81.0-99.0) fL MCH 31.2 (26.7-34.0) pg MCHC 33.2 (29.9-35.2) g/dL RDW 16.1 H (11.0-15.0) % Plt Count 304 (150-450) 10^3/uL MPV 11.0 (9.5-13.5) fL Neut % (Auto) 69.7 (43.0-75.0) % Lymph % (Auto) 21.3 (20.5-60.0) % [place] % (Auto) 6.1 (1.7-12.0) % Eos % (Auto) 2.0 (0.9-7.0) % Baso % (Auto) 0.6 (0.2-2.0) % Neut # (Auto) 7.5 H (1.4-6.5) 10^3/uL Lymph # (Auto) 2.3 (1.2-3.8) 10^3/uL [place] # (Auto) 0.7 (0.3-0.8) 10^3/uL Eos # (Auto) 0.2 (0.0-0.7) 10^3/uL Baso # (Auto) 0.1 (0.0-0.1) 10^3/uL Abs Immat Gran (auto) 0.03 (0.00-0.03) 10^3/uL Imm/Tot Granulo (auto) 0.3 (0.0-0.5) % Sodium 144 (136-145) mmol/L Potassium 4.0 (3.5-5.1) mmol/L Chloride 107 (98-107) mmol/L Carbon Dioxide 24.6 (21.0-32.0) mmol/L Anion Gap 16.4 BUN 8.0 (7.0-18.0) mg/dL Creatinine 0.75 (0.55-1.02) mg/dL Est GFR ( Amer) >60 (>=60 mL/min/1.73m^2) Est GFR (Non-Af Amer) >60 (>=60 mL/min/1.73m^2) BUN/Creatinine Ratio 10.7 Glucose 88 (74-106) mg/dL Calcium 9.3 (8.5-10.1) mg/dL Total Bilirubin 0.3 (0.2-1.0) mg/dL AST 14 L (15-37) U/L ALT 13 L (14-59) U/L Alkaline Phosphatase 65 (46-116) U/L Total Protein 7.4 (6.4-8.2) g/dL Albumin 3.7 (3.4-5.0) g/dL Globulin 3.7 g/dL Albumin/Globulin Ratio 1.0 Lipase 30.0 (16.0-77.0) U/L TSH 1.108 (0.358-3.740) uIU/mL Urine Color Yellow (YELLOW) Urine Clarity Clear (CLEAR) Urine pH 6.5 (5.0-9.0) Ur Specific [place] 1.010 (1.005-1.025) Urine Protein Negative (NEG/TRACE) mg/dL Urine Glucose (UA) Negative (NEGATIVE) mg/dL Urine Ketones Negative (NEGATIVE) mg/dL Urine Occult Blood Negative (NEGATIVE) Urine Nitrite Negative (NEGATIVE) Urine Bilirubin Negative (NEGATIVE) Urine Urobilinogen 0.2 (0.2-1.0) EU/dL Ur Leukocyte Esterase Negative (NEGATIVE) Urine RBC None seen (0-2) #/HPF Urine WBC None seen (NONE SEEN) #/HPF Ur Squamous Epith Cells Rare (NONE/RARE) #/LPF Urine Crystals None seen (None Seen) #/HPF Urine Bacteria None seen (NONE SEEN) #/HPF Urine Casts None seen (NONE SEEN) #/LPF Urine Mucus None seen (NONE SEEN) Ur Culture Indicated? No Discharge Plan Discharge Chief Complaint: Anxiety Clinical Impression: Anxiety Patient Disposition: Home, Self-Care Time of Disposition Decision: 15:14 Condition: Good Prescriptions / Home Meds: New citalopram [Celexa] 20 mg tablet 20 mg PO DAILY Qty: 30 0RF No Action duloxetine 60 mg capsule,delayed release(DR/EC) 60 mg PO BID lamotrigine 25 mg tablet 25 mg PO TID Print Language: [place] Instructions: Generalized Anxiety Disorder (ED), Anxiety (ED) Additional Instructions: follow up with [facility] hot line if needed. [phone] Referrals: Physician,Non-Staff, MD [Primary Care Provider] - 1 week
[2024-07-22 15:28] VITALS: BP 128/66; PULSE 86; O2SAT 98
[2024-07-22 15:46] LABS: Cannabinoid Screen Urine NEGATIVE (NEGATIVE)
[2024-07-22 15:47] LABS: Amphetamine Screen Urine NEGATIVE (NEGATIVE); Barbiturates Screen Urine NEGATIVE (NEGATIVE); Benzodiazepines Screen Urine NEGATIVE (NEGATIVE); Buprenorphine Screen Urine NEGATIVE (NEGATIVE); Cocaine Screen Urine NEGATIVE (NEGATIVE); Methadone Screen Urine NEGATIVE (NEGATIVE); Methamphetamines Screen Urine NEGATIVE (NEGATIVE); Opiate Screen Urine NEGATIVE (NEGATIVE); Oxycodone Screen Urine NEGATIVE (NEGATIVE); Phencyclidine Screen Urine NEGATIVE (NEGATIVE); Tricyclic Antidepressant Urine NEGATIVE (NEGATIVE)
== END 2024-07-22 15:29 | disposition home or self-care (01) ==
PROVIDERS: Physician Assistant; Emergency Provider Emergency Medicine
DX: F41.9 Anxiety disorder, unspecified (principal); F17.200 Nicotine dependence, unspecified, uncomplicated; Z79.899 Other long term (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
CPT/HCPCS: 36415; 80053; 80307; 81001; 83690; 84443; 85025; 99285; Q0162

== ENCOUNTER 2024-08-15 14:48 | Emergency (ER) | payer MEDICARE, MEDICAID, SELFPAY ==
[2024-08-15 14:52] VITALS: BP 132/84; PULSE 84; TEMP 36.7; O2SAT 96; BMI 28.7
--- NOTE | 2024-08-15 15:19 | CT_ITS ---
The [address] [address] Patient Name: LEILA HASSNA MRN: [id number] date: 1990 Sex: F Assigned Patient Location: ER Current Patient Location: Accession/Order Number: [id number] Exam Date: 08/15/2024 15:54 Report Date: 08/15/2024 16:57 At the request of: MARIO MARTINEZ Procedure: CT soft tissue neck w con EXAM: CT scan of the neck using 100 mL of IV iodinated contrast. Dose reduction technique used: Automated exposure control and/or adjustment of the mA and/or kV according to patient size and/or use of iterative reconstruction technique. REASON FOR EXAM: neck swelling, anterior COMPARISON: None FINDINGS: Mild bilateral cervical lymphadenopathy with asymmetric distribution. No abscess, fluid collection or soft tissue emphysema in the neck. No inflammatory changes in the neck. No abnormal soft tissue masses. Patent vascular structures in the neck. Remainder unremarkable. CT/CT soft tissue neck w con IMPRESSION: 1. Mild bilateral cervical lymphadenopathy with asymmetric distribution, this is likely reactive. 2. Otherwise, no acute abnormalities in the neck. Electronically authenticated by: ROSLYN BECKWITH Date: 08/15/2024 16:57
--- NOTE | 2024-08-15 15:24 | ED.GENADUL1 ---
HPI HPI - General Adult General Chief complaint: Neck Pain/Injury Stated complaint: swollen neck Time Seen by Provider: 08/15/24 14:49 Source: patient Mode of arrival: walk-in Limitations: no limitations History of Present Illness HPI narrative: Patient is a 33-year-old female who is well-known to this emergency department who presents for multiple complaints. Patient states for the last day she noticed swelling in her anterior neck and under her chin. She has not had any difficulty speaking or swallowing. She states yesterday she noticed swollen lymph nodes in the neck. No fevers or other upper respiratory symptoms. No vomiting or diarrhea. After initial interview, patient request to also be checked for GI bleed. She states she has had dark tarry stools for several weeks. She reports chronic intermittent abdominal pain and nausea. She has a history of gastric bypass and hysterectomy. She started taking iron 1 week ago but states her symptoms began before this. Related Data Home Medications ?Medication ?Instructions ?Recorded ?Confirmed duloxetine 60 mg capsule,delayed 60 mg PO BID 06/10/23 07/22/24 release lamotrigine 25 mg tablet 25 mg PO TID 04/08/24 07/22/24 Previous Rx's ?Medication ?Instructions ?Recorded citalopram 20 mg tablet (Celexa) 20 mg PO DAILY #30 tabs 07/22/24 Allergies Allergy/AdvReac Type Severity Reaction Status Date / Time buspirone (From BuSpar) Allergy Intermediate tachycardia Verified 08/15/24 14:56 aripiprazole (From Abilify) Allergy Unknown Verified 08/15/24 14:56 COCONUT Allergy Mild Hives Uncoded 08/15/24 14:56 Opioid HPI Opioid Management Most Recent Opioid Data: Last Pain Scale 2 10/14/23 15:35 10/14/23 Ur Phencyclidine Scrn Negative (NEGATIVE) 07/22/24 13:51 07/22/24 Review of Systems ROS Constitutional Denies: fever or chills Ears, nose, mouth, and throat Reports: throat pain and throat swelling; Denies: neck pain, difficulty swallowing or hoarseness Cardiovascular Denies: chest pain Respiratory Denies: shortness of breath Gastrointestinal Reports: abdominal pain and nausea; Denies: vomiting or diarrhea Musculoskeletal Denies: back pain Integumentary/Breast Denies: rash Neurological Denies: headache, numbness in extremities or weakness in extremities Hematologic/Lymphatic Denies: easy bruising or easy bleeding PFSH PFSH Social History Smoking status: Current every day smoker Little interest or pleasure in doing things: nearly every day Feeling down, depressed, or hopeless: nearly every day Exam Constitutional Vital Signs, click to edit/add: Last Vital Signs Temp 98.1 F 08/15/24 14:52 Pulse 84 08/15/24 14:52 BP 132/84 08/15/24 14:52 Pulse Ox 96 08/15/24 14:52 Course Vital Signs Vital signs: Vital Signs Temperature 98.1 F 08/15/24 14:52 Pulse Rate 84 08/15/24 14:52 Blood Pressure 132/84 08/15/24 14:52 Pulse Oximetry 96 08/15/24 14:52 Temperature 98.1 F 08/15/24 14:52 Pulse Rate 84 08/15/24 14:52 Blood Pressure 132/84 08/15/24 14:52 Pulse Oximetry 96 08/15/24 14:52 Medical Decision Making MDM Narrative Medical decision making narrative: Rectal exam was performed with Daysi Jimenez RN at bedside throughout the duration of the exam. No hemorrhoids or active bleeding noted. A small amount of brown stool was obtained for Hemoccult testing. Hemoccult is negative, labs are stable and CT of the soft tissue of the neck shows cervical adenopathy with no acute process. Patient given Decadron and discharged home with education and reassurance. Follow-up with primary care and return to the ER if symptoms change or worsen SHARED APC VISIT, PHYSICIAN ATTESTATION: [id number] I performed a substantive part of the MDM during the patient?s E/M visit. I personally evaluated and examined the patient. I personally made or approved the documented management plan and acknowledge its risk of complications. Medical Records Medical records reviewed: Yes I reviewed the patient's medical records Lab Data Lab results reviewed: Yes I reviewed the patient's lab results Labs: Lab Results 08/15/24 08/15/24 08/15/24 Range/Units 15:31 15:33 15:40 WBC 8.8 (4.0-11.0) 10^3/uL RBC 3.70 L (4.20-5.40) 10^6/uL Hgb 11.7 L (12.0-16.0) g/dL Hct 35.6 L (36.0-48.0) % MCV 96.2 (81.0-99.0) fL MCH 31.6 (26.7-34.0) pg MCHC 32.9 (29.9-35.2) g/dL RDW 16.1 H (11.0-15.0) % Plt Count 316 (150-450) 10^3/uL MPV 10.4 (9.5-13.5) fL Neut % (Auto) 61.8 (43.0-75.0) % Lymph % (Auto) 26.8 (20.5-60.0) % [place] % (Auto) 7.2 (1.7-12.0) % Eos % (Auto) 3.3 (0.9-7.0) % Baso % (Auto) 0.7 (0.2-2.0) % Neut # (Auto) 5.4 (1.4-6.5) 10^3/uL Lymph # (Auto) 2.4 (1.2-3.8) 10^3/uL [place] # (Auto) 0.6 (0.3-0.8) 10^3/uL Eos # (Auto) 0.3 (0.0-0.7) 10^3/uL Baso # (Auto) 0.1 (0.0-0.1) 10^3/uL Abs Immat Gran (auto) 0.02 (0.00-0.03) 10^3/uL Imm/Tot Granulo (auto) 0.2 (0.0-0.5) % PT 10.0 (9.0-11.6) sec INR 0.94 Sodium 144 (136-145) mmol/L Potassium 3.7 (3.5-5.1) mmol/L Chloride 106 (98-107) mmol/L Carbon Dioxide 28.6 (21.0-32.0) mmol/L Anion Gap 13.1 BUN 6.0 L (7.0-18.0) mg/dL Creatinine 0.84 (0.55-1.02) mg/dL Est GFR ( Amer) >60 (>=60 mL/min/1.73m^2) Est GFR (Non-Af Amer) >60 (>=60 mL/min/1.73m^2) BUN/Creatinine Ratio 7.1 Glucose 59 L (74-106) mg/dL Lactate 1.0 (0.4-2.0) mmol/L Calcium 9.0 (8.5-10.1) mg/dL Total Bilirubin 0.2 (0.2-1.0) mg/dL AST 20 (15-37) U/L ALT 28 (14-59) U/L Alkaline Phosphatase 63 (46-116) U/L Total Protein 6.7 (6.4-8.2) g/dL Albumin 3.4 (3.4-5.0) g/dL Globulin 3.3 g/dL Albumin/Globulin Ratio 1.0 Stool Occult Blood Negative Monoscreen Negative (NEGATIVE) Streptococcus Screen Negative Imaging Data CT neck: Attestation: I have reviewed the pertinent imaging results. Radiologist's impression: ITS Impressions Soft Tissue Neck CT 08/15/24 15:19 IMPRESSION: 1. Mild bilateral cervical lymphadenopathy with asymmetric distribution, this is likely reactive. 2. Otherwise, no acute abnormalities in the neck. Electronically authenticated by: ROSLYN BECKWITH Date: 08/15/2024 16:57 Discharge Plan Discharge Chief Complaint: Neck Pain/Injury Clinical Impression: Cervical lymphadenopathy Patient Disposition: Home, Self-Care Time of Disposition Decision: 17:06 Condition: Good Prescriptions / Home Meds: No Action duloxetine 60 mg capsule,delayed release(DR/EC) 60 mg PO BID lamotrigine 25 mg tablet 25 mg PO TID citalopram [Celexa] 20 mg tablet 20 mg PO DAILY Qty: 30 0RF Print Language: Swedish Instructions: Lymphadenopathy (ED) Referrals: Physician,Non-Staff, MD [Primary Care Provider] - 1 week
[2024-08-15 15:38] LABS: Basophils Absolute Auto 0.1 10^3/uL (0.0-0.1); Basophils Percent Auto 0.7 % (0.2-2.0); Eosinophils Absolute Auto 0.3 10^3/uL (0.0-0.7); Eosinophils Percent Auto 3.3 % (0.9-7.0); Hematocrit 35.6 % (36.0-48.0); Hemoglobin 11.7 g/dL (12.0-16.0); Immature Granulocytes Abs Auto 0.02 10^3/uL (0.00-0.03); Immature Granulocytes Pct Auto 0.2 % (0.0-0.5); Lymphocytes Absolute Auto 2.4 10^3/uL (1.2-3.8); Lymphocytes Percent Auto 26.8 % (20.5-60.0); Mean Corpuscular HGB Conc 32.9 g/dL (29.9-35.2); Mean Corpuscular Hemoglobin 31.6 pg (26.7-34.0); Mean Corpuscular Volume 96.2 fL (81.0-99.0); Mean Platelet Volume 10.4 fL (9.5-13.5); Monocytes Absolute Auto 0.6 10^3/uL (0.3-0.8); Monocytes Percent Auto 7.2 % (1.7-12.0); Neutrophils Absolute Auto 5.4 10^3/uL (1.4-6.5); Neutrophils Percent Auto 61.8 % (43.0-75.0); Platelet Count 316 10^3/uL (150-450); Red Cell Distribution Width 16.1 % (11.0-15.0); White Blood Count 8.8 10^3/uL (4.0-11.0)
[2024-08-15 15:43] LABS: Internal Control Within Normal Limits; Strep A Antigen Screen Negative
[2024-08-15 15:50] LABS: Internal Control Within Normal Limits; Mono Screen NEGATIVE (NEGATIVE)
[2024-08-15 15:51] LABS: INR 0.94
[2024-08-15 15:52] LABS: Alanine Aminotransferase 28 U/L (14-59); Albumin Level 3.4 g/dL (3.4-5.0); Alkaline Phosphatase 63 U/L (46-116); Anion Gap 13.1; Aspartate Amino Transferase 20 U/L (15-37); BUN Creatinine Ratio 7.1; Bilirubin Total 0.2 mg/dL (0.2-1.0); Carbon Dioxide 28.6 mmol/L (21.0-32.0); Chloride 106 mmol/L (98-107); Estimated GFR (African America >60 (>=60 mL/min/1.73m^2); Estimated GFR (Non-African Ame >60 (>=60 mL/min/1.73m^2); Globulin 3.3 g/dL; Glucose 59 mg/dL (74-106); Potassium 3.7 mmol/L (3.5-5.1); Sodium 144 mmol/L (136-145); Total Protein 6.7 g/dL (6.4-8.2)
[2024-08-15 15:54] LABS: Internal Control Within Normal Limits; Occult Blood Negative
[2024-08-15] MEDS: DEXAMETHASONE SOD PHOS 10 MG/ML VIAL IV (17:17)
[2024-08-15 17:28] VITALS: BP 137/88; PULSE 63; TEMP 36.8; O2SAT 100
== END 2024-08-15 17:30 | disposition home or self-care (01) ==
PROVIDERS: Physician Assistant; Emergency Provider Emergency Medicine
DX: R59.0 Localized enlarged lymph nodes (principal); R10.9 Unspecified abdominal pain; Z90.710 Acquired absence of both cervix and uterus; Z98.84 Bariatric surgery status; F17.200 Nicotine dependence, unspecified, uncomplicated; R11.0 Nausea
CPT/HCPCS: 36415; 70491; 80053; 83605; 85025; 85610; 86308; 87070; 87880; 96374; 99285; G0328; J1100; Q9967

== ENCOUNTER 2024-08-22 11:37 | Emergency (ER) | payer MEDICARE, MEDICAID, SELFPAY ==
[2024-08-22 11:41] VITALS: BP 116/65; PULSE 73; TEMP 36.9; O2SAT 99; BMI 30.5
--- NOTE | 2024-08-22 11:53 | ED_ITS ---
HPI HPI - General Adult General Chief complaint: Abdominal Pain Stated complaint: ABDOMINAL PAIN Time Seen by Provider: 08/22/24 11:45 Source: patient Mode of arrival: walk-in Limitations: no limitations History of Present Illness HPI narrative: Patient presenting to the emergency department for evaluation of feeling swollen everywhere. Patient states that she was seen in the emergency department here approximately 1 week ago, she had a sore throat, she had labs were drawn, they give her steroid shot in the emergency department. States that she follow-up with her primary care physician, she was started on 1 day course of steroids, 3 tablets day for 3 days, then 2 a day for 3 days, then 1 a day for 3 days. Patient states over the course of the last week now she feels that she is retaining water everywhere. She states she feels like she is just swollen over. Feels that her legs are swollen, hands feel puffy, states that her face feels puffy, and her stomach feels like it is just retaining fluid and feels like she is getting bloated. She called her PCP office the [facility] today, they told her that steroids should not cause fluid retention and she should come to the emergency department for evaluation. Related Data Home Medications ?Medication ?Instructions ?Recorded ?Confirmed duloxetine 60 mg capsule,delayed 60 mg PO BID 06/10/23 07/22/24 release lamotrigine 25 mg tablet 25 mg PO TID 04/08/24 07/22/24 Previous Rx's ?Medication ?Instructions ?Recorded citalopram 20 mg tablet (Celexa) 20 mg PO DAILY #30 tabs 07/22/24 Allergies Allergy/AdvReac Type Severity Reaction Status Date / Time buspirone (From BuSpar) Allergy Intermediate tachycardia Verified 08/15/24 14:56 aripiprazole (From Abilify) Allergy Unknown Verified 08/15/24 14:56 COCONUT Allergy Mild Hives Uncoded 08/15/24 14:56 Opioid HPI Opioid Management Most Recent Opioid Data: Last Pain Scale 2 10/14/23 15:35 10/14/23 Ur Phencyclidine Scrn Negative (NEGATIVE) 07/22/24 13:51 11/0 05/07 Review of Systems ROS Narrative Negative unless otherwise stated in the HPI PFSH PFSH Social History Smoking status: Current every day smoker Little interest or pleasure in doing things: not at all Feeling down, depressed, or hopeless: not at all Exam Narrative Exam Narrative: General: NAD, AAOx3, no distress Eyes: No edema was noted HEENT: NCAT, mmm Neck: Supple, no LAD, non meningeal Respiratory: respiratory effort normal, speaks in full sentences, no tripod position, no accessory muscle use. No crackles Cardiac: Regular rate and rhythm, no edema, regular s1/s2, no m/g/r Abdomen: Soft, no distention or bloating was noted Ext: No edema noted Constitutional Vital Signs, click to edit/add: Last Vital Signs Temp 98.4 F 08/22/24 11:41 Pulse 73 08/22/24 11:41 Resp 18 08/22/24 11:41 BP 116/65 08/22/24 11:41 Pulse Ox 99 08/22/24 11:41 O2 Del Method Room Air 08/22/24 11:41 Course Vital Signs Vital signs: Vital Signs Temperature 98.4 F 08/22/24 11:41 Pulse Rate 73 08/22/24 11:41 Respiratory Rate 18 08/22/24 11:41 Blood Pressure 116/65 08/22/24 11:41 Pulse Oximetry 99 08/22/24 11:41 Oxygen Delivery Method Room Air 08/22/24 11:41 Temperature 98.4 F 08/22/24 11:41 Pulse Rate 73 08/22/24 11:41 Respiratory Rate 18 08/22/24 11:41 Blood Pressure 116/65 08/22/24 11:41 Pulse Oximetry 99 08/22/24 11:41 Oxygen Delivery Method Room Air 08/22/24 11:41 Medical Decision Making [facility] Narrative Medical decision making narrative: Advanced guidance has been given. Vss, pex is benign at this time. Pt to fu with pcp 1-2 days for reeval, rter should sx worsen, persist or become worrysome in any way. All incidental laboratory studies, EKG, radiologic findings have been noted and discussed with patient. Patient was reevaluated with a benign exam at this time. Patient with leukocytosis, likely related to large steroid doses that she has been over the last couple of days. Patient does not have any specific abdominal pain, or pain in the epigastric region. States that she is unknown pancreatic pseudocyst 2 months. Has no specific pain over her pancreas. 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 Pt expressed understanding and agreement with plan of care at this time. Will fu as planned. Pt stable for discharge. Medical Records Medical records reviewed: Yes I reviewed the patient's medical records Lab Data Lab results reviewed: Yes I reviewed the patient's lab results Labs: Lab Results 08/22/24 Range/Units 12:05 WBC 20.0 H (4.0-11.0) 10^3/uL RBC 3.72 L (4.20-5.40) 10^6/uL Hgb 11.8 L (12.0-16.0) g/dL Hct 35.5 L (36.0-48.0) % MCV 95.4 (81.0-99.0) fL MCH 31.7 (26.7-34.0) pg MCHC 33.2 (29.9-35.2) g/dL RDW 16.0 H (11.0-15.0) % Plt Count 305 (150-450) 10^3/uL MPV 11.1 (9.5-13.5) fL Neut % (Auto) 90.7 H (43.0-75.0) % Lymph % (Auto) 6.2 L (20.5-60.0) % [place] % (Auto) 2.3 (1.7-12.0) % Eos % (Auto) 0.1 L (0.9-7.0) % Baso % (Auto) 0.3 (0.2-2.0) % Neut # (Auto) 18.1 H (1.4-6.5) 10^3/uL Lymph # (Auto) 1.2 (1.2-3.8) 10^3/uL [place] # (Auto) 0.5 (0.3-0.8) 10^3/uL Eos # (Auto) 0.0 (0.0-0.7) 10^3/uL Baso # (Auto) 0.1 (0.0-0.1) 10^3/uL Abs Immat Gran (auto) 0.08 H (0.00-0.03) 10^3/uL Imm/Tot Granulo (auto) 0.4 (0.0-0.5) % Sodium 139 (136-145) mmol/L Potassium 4.6 (3.5-5.1) mmol/L Chloride 107 (98-107) mmol/L Carbon Dioxide 26.2 (21.0-32.0) mmol/L Anion Gap 10.4 BUN 10.0 (7.0-18.0) mg/dL Creatinine 0.73 (0.55-1.02) mg/dL Est GFR ( Amer) >60 (>=60 mL/min/1.73m^2) Est GFR (Non-Af Amer) >60 (>=60 mL/min/1.73m^2) BUN/Creatinine Ratio 13.7 Glucose 107 H (74-106) mg/dL Calcium 8.8 (8.5-10.1) mg/dL Total Bilirubin 0.3 (0.2-1.0) mg/dL AST 14 L (15-37) U/L ALT 22 (14-59) U/L Alkaline Phosphatase 56 (46-116) U/L Total Protein 6.5 (6.4-8.2) g/dL Albumin 3.2 L (3.4-5.0) g/dL Globulin 3.3 g/dL Albumin/Globulin Ratio 1.0 Lipase 271.0 H (16.0-77.0) U/L TSH & Free T4 Interp 0.854 (0.358-3.740) uIU/mL Discharge Plan Discharge Chief Complaint: Abdominal Pain Clinical Impression: Abnormal serum level of lipase, Fluid retention, Pancreatitis Patient Disposition: Home, Self-Care Time of Disposition Decision: 13:23 Prescriptions / Home Meds: No Action duloxetine 60 mg capsule,delayed release(DR/EC) 60 mg PO BID lamotrigine 25 mg tablet 25 mg PO TID citalopram [Celexa] 20 mg tablet 20 mg PO DAILY Qty: 30 0RF Print Language: Upper Sorbian Instructions: Edema (ED) Additional Instructions: Follow-up with your PCP in the next 1 to 2 days. Return to the emergency department should symptoms worsen or become worrisome in any way., Referrals: Physician,Non-Staff, MD [Primary Care Provider] - 1 week
[2024-08-22 12:18] LABS: Basophils Absolute Auto 0.1 10^3/uL (0.0-0.1); Basophils Percent Auto 0.3 % (0.2-2.0); Eosinophils Percent Auto 0.1 % (0.9-7.0); Hematocrit 35.5 % (36.0-48.0); Hemoglobin 11.8 g/dL (12.0-16.0); Immature Granulocytes Abs Auto 0.08 10^3/uL (0.00-0.03); Immature Granulocytes Pct Auto 0.4 % (0.0-0.5); Lymphocytes Absolute Auto 1.2 10^3/uL (1.2-3.8); Lymphocytes Percent Auto 6.2 % (20.5-60.0); Mean Corpuscular HGB Conc 33.2 g/dL (29.9-35.2); Mean Corpuscular Hemoglobin 31.7 pg (26.7-34.0); Mean Corpuscular Volume 95.4 fL (81.0-99.0); Mean Platelet Volume 11.1 fL (9.5-13.5); Monocytes Absolute Auto 0.5 10^3/uL (0.3-0.8); Monocytes Percent Auto 2.3 % (1.7-12.0); Neutrophils Absolute Auto 18.1 10^3/uL (1.4-6.5); Neutrophils Percent Auto 90.7 % (43.0-75.0); Platelet Count 305 10^3/uL (150-450); Red Blood Count 3.72 10^6/uL (4.20-5.40)
[2024-08-22 12:35] LABS: Alanine Aminotransferase 22 U/L (14-59); Albumin Level 3.2 g/dL (3.4-5.0); Alkaline Phosphatase 56 U/L (46-116); Anion Gap 10.4; Aspartate Amino Transferase 14 U/L (15-37); BUN Creatinine Ratio 13.7; Bilirubin Total 0.3 mg/dL (0.2-1.0); Calcium 8.8 mg/dL (8.5-10.1); Carbon Dioxide 26.2 mmol/L (21.0-32.0); Chloride 107 mmol/L (98-107); Estimated GFR (African America >60 (>=60 mL/min/1.73m^2); Estimated GFR (Non-African Ame >60 (>=60 mL/min/1.73m^2); Globulin 3.3 g/dL; Glucose 107 mg/dL (74-106); Potassium 4.6 mmol/L (3.5-5.1); Sodium 139 mmol/L (136-145); Total Protein 6.5 g/dL (6.4-8.2)
[2024-08-22 12:44] LABS: TSH W/ REFLEX FT4 0.854 uIU/mL (0.358-3.740)
== END 2024-08-22 13:31 | disposition home or self-care (01) ==
PROVIDERS: Emergency Provider Emergency Medicine
DX: R60.9 Edema, unspecified (principal); K85.90 Acute pancreatitis without necrosis or infection, unspecified; F17.200 Nicotine dependence, unspecified, uncomplicated; R79.89 Other specified abnormal findings of blood chemistry
CPT/HCPCS: 36415; 80053; 83690; 84443; 85025; 99283

== ENCOUNTER 2024-09-05 14:16 | Outpatient (OUT) | payer MEDICARE, MEDICAID, SELFPAY ==
[2024-09-05 14:54] LABS: Basophils Percent Auto 0.4 % (0.2-2.0); Eosinophils Absolute Auto 0.3 10^3/uL (0.0-0.7); Eosinophils Percent Auto 3.6 % (0.9-7.0); Hematocrit 36.4 % (36.0-48.0); Hemoglobin 12.1 g/dL (12.0-16.0); Immature Granulocytes Abs Auto 0.02 10^3/uL (0.00-0.03); Immature Granulocytes Pct Auto 0.2 % (0.0-0.5); Lymphocytes Absolute Auto 2.4 10^3/uL (1.2-3.8); Lymphocytes Percent Auto 25.6 % (20.5-60.0); Mean Corpuscular HGB Conc 33.2 g/dL (29.9-35.2); Mean Corpuscular Hemoglobin 31.7 pg (26.7-34.0); Mean Corpuscular Volume 95.3 fL (81.0-99.0); Mean Platelet Volume 10.5 fL (9.5-13.5); Monocytes Absolute Auto 0.7 10^3/uL (0.3-0.8); Monocytes Percent Auto 7.5 % (1.7-12.0); Neutrophils Absolute Auto 5.8 10^3/uL (1.4-6.5); Neutrophils Percent Auto 62.7 % (43.0-75.0); Platelet Count 360 10^3/uL (150-450); Red Blood Count 3.82 10^6/uL (4.20-5.40); Red Cell Distribution Width 15.9 % (11.0-15.0); White Blood Count 9.3 10^3/uL (4.0-11.0)
[2024-09-05 15:09] LABS: Alanine Aminotransferase 21 U/L (14-59); Albumin Level 3.4 g/dL (3.4-5.0); Alkaline Phosphatase 57 U/L (46-116); Anion Gap 11.4; Aspartate Amino Transferase 14 U/L (15-37); Bilirubin Total 0.3 mg/dL (0.2-1.0); C Reactive Protein <0.50 mg/dL (<=0.50); Calcium 8.9 mg/dL (8.5-10.1); Carbon Dioxide 25.9 mmol/L (21.0-32.0); Chloride 105 mmol/L (98-107); Estimated GFR (African America >60 (>=60 mL/min/1.73m^2); Estimated GFR (Non-African Ame >60 (>=60 mL/min/1.73m^2); Globulin 3.4 g/dL; Glucose 94 mg/dL (74-106); Potassium 3.3 mmol/L (3.5-5.1); Sodium 139 mmol/L (136-145); Total Protein 6.8 g/dL (6.4-8.2)
[2024-09-05 15:10] LABS: Erythrocyte Sedimentation Rate 17 mm/hr (<=20)
[2024-09-06 06:07] LABS: Rheumatoid Factor (RF) <10.0 IU/mL (<14.0)
[2024-09-06 11:08] LABS: ANA Direct Negative (Negative)
== END 2024-09-05 14:17 | disposition home or self-care (01) ==
LOC: LAB 14:18
DX: R53.82 Chronic fatigue, unspecified (principal)
CPT/HCPCS: 36415; 80053; 82728; 85025; 85652; 86038; 86140; 86431

== ENCOUNTER 2024-09-11 08:50 | Emergency (ER) | payer MEDICARE, MEDICAID, SELFPAY ==
[2024-09-11 08:57] VITALS: BP 122/86; PULSE 87; TEMP 37.1; O2SAT 97; BMI 29.0
--- OUTSIDE RECORDS SUMMARY | 2024-09-11 09:08 | XMS_ITS | CCD ---
Author Organization [facility] Care Team Providers Care Sleep Technician Name Role Phone Jennie Durand Primary Care Provider LINDY COTE Attending Unavailable PROVIDER, UNKNOWN Admitting Unavailable PATIENT, SELF Referring Unavailable Jennie Durand Primary Care Provider [phone] Jennie Durand DO Primary Care Provider [phone] JENNIE DURAND Primary Care Unavailable Jennie Durand DO Primary Care Provider Unavailable Primary Care Provider UnavailAimee Renee Primary Care Physician [phone] Unavailable Primary Care Provider UnavailDO Jennie Pichardo Primary Care Provider [phone] MD Sangeetha Peña Admit Provider Lindy Hdz Other Provider Unavailable DO Krystal Romo Other Provider MD Carolyne Schilling Other Provider DO Jamie Larsen Other Provider [facility] Dorita Other Provider DO Kenrick Lee Other [...] e Nakia Mcqueen Primary Care Physician [phone] Jennie Durand Primary Care Physician DO Jennie Durand Primary Care Provider [phone] DO Jose Maria Nair Emergency Provider [phone] Ania Javed Unavailable Asaad, Imad Unavailable DO Ladarius Jennie D Primary Care Provider Turamses, DO Jose Maria Blue Emergency Provider MD Yoli Norris Emergency Provider [phone] GANESH CORDERO Referring Unavailable DURAND, JENNIE D Primary Care Unavailable JOSUEMARII Referring Unavailable DURAND, JENNIE D Primary Care Unavailable EILEEN ALVAREZ Attending Unavailable EILEEN ALVAREZ Attending Unavailable LEONELA AGUIRRE Referring Unavailable Durand DO, Jennie D Primary Care Provider GAMALIEL VICKERS Referring Unavailable DURAND, JENNIE D Primary Care Unavailable JOSUEMARII Referring Unavailable DURAND, JENNIE D Primary Care Unavailable JOSUEMARII Referring Unavailable DURAND, JENNIE D Primary Care Unavailable Durand DO Jennie D Primary Care Provider [phone] MD Marii Christiansen Emergency Provider Turamses, DO Jose Maria Blue Emergency Provider [phone] CEDRIC Javed Emergency Provider Eve BHAKTA, Imad Unavailable Elia Baires DO Primary Care Provider GAMALIEL VICKERS Admitting Unavailable GAMALIEL VICKERS Attending Unavailable DURAND, JENNIE D Primary Care Unavailable MARII JOSUE Referring Unavailable DURAND, JENNIE D Primary Care Unavailable DURAND, JENNIE D Primary Care Unavailable MARII JOSUE Referring Unavailable Alexis Shukla Attending Unavailable Bakari Chester Attending Unavailable REFERRAL, SELF Referring Unavailable Otto Larsen Attending Unavaila ble Durand, Jennie D Admitting Unavailable Durand, Jennie D Referring Unavailable Durand, Jennie D Attending Unavailable GIL, LEONOR Bach Attending Unavailable GIL, LEONOR Bach Admitting Unavailable Otto Larsen Attending Unavaila Alexis Curry Attending Unavailable Durand, Jennie D Primary Care Unavailable TuJose Maria henry Admitting Unavailable TuJose Maria henry Attending Unavailable Jose Maria Nair Admitting Unavailable TupaJose Maria Attending Unavailable Durand, Jennie D Primary Care Unavailable Durand, Jennie D Primary Care Unavailable Jose Maria Nair Admitting Unavailable Jose Maria Nair Attending Unavailable Jennie Durand Primary Care Unavailable Yoli Norris Admitting Unavailable Yoli Norris Attending Unavailable Kenny Javed Admitting Unavailable Kenny Javed Attending Unavailable Jennie Durand Primary Care Unavailable Marii Christiansen Admitting Unavailable Marii Christiansen Attending Unavailable Jennie Durand Primary Care Unavailable Lindy Keen Primary Care Unavailable Efrem Victor Admitting Unavailab Efrem Staton Attending Unavailab Tevin Contreras DO Primary Care Provider [phone] Unavailable Primary Care Provider Unavailbehzad badillo Unavailable Primary Care Provider UnavailTIFFANIE Love Primary Care Physician [phone] ALEAH HOWARD Attending Unavailable Natacha Schroeder DO Unavailable HEYDI AGUIRRER A Attending Unavailable TEVIN CARSON Referring Unavailable CARSON, TEVIN Primary Care Unavailable TEVIN CARSON Attending Unavailable CARSON, TEVIN Primary Care Unavailable CARSON, TEVIN Primary Care Unavailable ABI ASIF Referring Unavailable CARSON, TEVIN Primary Care Unavailable CARSON, TEVIN Primary Care Unavailable FATUMA TYLER Attending Unavailable CARSON, TEVIN Primary Care Unavailable CARSONTEVIN Attending Unavailable NAFFOSHELLIE, SAMER A Referring Unavailable BAIRES, ELIA N Primary Care Unavailable BAIRES, ELIA N Attending Unavailable BAIRES, ELIA N Primary Care Unavailable BAIRES, ELIA N Primary Care Unavailable BAIRES, ELIA N Referring Unavailable BAIRES, ELIA N Attending Unavailable Allergies Allergy Classification Reported Allergen(s) Allergy Type Date of Onset Reaction(s) Facility coconut allergenic extract (7 sources) coconut allergenic extract Drug Allergy 07-18-20 [facility] (20 sources) coconut allergenic extract; Translations: [Coconut Oil] Drug Allergy 07-18-20 Itching [place], [place] (17 sources) Coconut Flavor; Translations: [COCONUT FLAVOR] Propensity to adverse reactions to drug 05-09-20 Anaphylaxis [place], [place] (1 source) SOAP; Translations: [SOAP] Propensity to adverse reactions to drug (disorder) 11-13-19 [facility] (1 source) Pencils; Translations: [Unknown] Propensity to adverse reactions (disorder) 11-13-19 [facility] (20 sources) Coconut extract; Translations: [coconut] Drug Allergy 07-18-20 20 Swelling [facility] (16 sources) ARIPiprazole lauroxil; Translations: [aripiprazole] Drug Allergy suicidal [facility] (20 sources) ARIPiprazole; Translations: [aripiprazole] Drug Allergy 08-19-20 22 Mental Status Change, Other: See Comments, Unknown, Other [facility] (1 source) ARIPiprazole Drug Allergy 10-30-19 23 [facility] (5 sources) busPIRone; Translations: [Buspirone] Drug Allergy Unknown, palpitations [facility] (20 sources) buPROPion; Translations: [BUPROPION] Drug Allergy 07-16-20 21 Unknown, Other [facility] (4 sources) busPIRone; Translations: [buspirone] Drug Allergy 12-10-19 24 Unknown Reaction [facility] (2 sources) Coconut Oil, Hydrogenated; Translations: [COCONUT OIL, HYDROGENATED] Propensity to adverse reactions 07-18-20 [facility] Work Phone: Medications Current Medications Medication Drug Class(es) Dates [...] q4hr for headache, 12 cap(s), Refill(s) 0, [id number], 170, cm, 08/22/22 10:41:00 EST, Height/Length Dosing, 85, kg, 08/22/22 10:41:00 EST, Weight Dosing Start Date: 08/22/22 Status: Ordered Start: 08-08-2022 take 1 capsule by mo [facility] every four hours for headache APAP/butalbital/caffeine 300 mg-50 mg-40 mg oral capsule 1 cap(s), Oral, q4hr for headache, 12 cap(s), Refill(s) 0, [facility][id number], 162, cm, 08/08/22 9:11:00 EST, Height/Length Dosing, 83.1, kg, 08/08/22 9:11:00 EST, Weight Dosing Start Date: 08/08/22 Status: Ordered acetaminophen 325 mg / oxyCODONE hydrochloride 5 mg oral tablet (7 sources) Opioid Agonist Start: 12-05-2022 End: 12-07-2022 acetaminophen-oxycodone 325 mg-5 mg Tab 1 tab(s), Oral, q6hr for pain for 2 day(s), 7 tab(s), Refill(s) 0, [id number], 170, cm, 11/21/22 10:37:00 EST, Height/Length Dosing, [...] 02/06/2021 Start: 01-30-2021 take 1 tablet by [facility] every four hours as needed for [...] COCET) 5-325 MG per tablet 1 tablet [id number] actuat albuterol 0.09 mg/actuat metered dose [...] 01-07-2021 ipratropium-albuterol (DUONEB) nebulizer solution 1 ampule amoxicillin 875 mg / clavulanate 125 mg [...] tablet Take 1 tablet by mouth daily Josue melts 0 Suspended calcium chloride 0.0014 meq/ [...] Ordered cyclobenzaprine hydrochloride 5 mg oral tablet (4 sources) Muscle Relaxant Start: 11-10-2022 End: 09-18-2023 [...] day(s), # 42 tab(s), Refills(s) 0, Pharmacy: [facility]/pharmacy #[id number], 170, cm, 08/22/22 10:41:00 EST, Height/Length Dosing, 85, kg, 08/22/22 10:41:00 EST, Weight Dosing Start Date: 08/22/22 Stop Date: 09/05/22 Status: Ordered Start: 07-27-2020 End: 08-08-2024 take 10 mg by mouth three times [...] a day. 03/08/2024 Active Start: 02-21-2023 End: 08-08-2024 take 1 capsule by mouth once daily DULoxetine (Cymbalta) [address] capsule Take 1 capsule (30 mg) by mouth once daily. 02/21/2023 08/08/2024 Discontinued (Therapy completed) Start: 07-20-2020 End: 08-19-2022 Duloxetine Discontinued 30 M G PO Daily at bedtime July 20, 2020 1:00am August 19, 2022 8:39am Take with 60mg tablet for total of 90mg Start: 02-29-2020 DULoxetine (Cy mbalta) [address] capsule Take 90 mg by mouth. 02/29/2020 Active Start: 02-02-2019 Cymbalta 60 mg , Oral, [...] Start: 01-08-2019 take 1 capsule by [facility] twice daily Duloxetine (Cymbalta) 60 mg Capsule,Delayed Release(Dr/Ec) Active 60 MG PO Twice daily January 08, 2019 12:00am take 1 capsule by [facility] every eight hours Cymbalta 30 [...] IRON) TAB) gabapentin 300 mg oral capsule (14 sources) Anti-epileptic Agent Start: End: take 1 [...] 08, 2019 12:00am July 18, 2020 3:27pm labetalol (NORMODYNE;TRANDATE) injection 10 mg (1 source) Start: 09-18-2023 labetalol (NORMODYNE;TRANDATE) injection 10 mg labetalol (NORMODYNE;TRANDATE) injection syringe 5 mg (1 source) Start: 09-28-2020 labetalol (NORMODYNE;TRANDATE) injection syringe 5 mg lamoTRIgine 25 mg oral tablet (19 sources) Mood Stabilizer , Anti-epile ptic Agent Start: 01-06-2024 End: 11-15-2024 take 2 tablets by mouth twice daily lamoTRIgine (LAMICTAL) 25 mg tablet Indications: Bipolar affective disorder in remission (HCC) , Borderline personality disorder (HCC) , Anxiety disorder, unspecified type Take 2 tablets by mouth two times a day. 360 tablet 08/17/2024 11/15/2024 Active End: 07-25-2024 take 3 tablets by mouth once daily lamoTRIgine (LAMICTAL) 25 mg tablet Indications: Bipolar affective disorder in remission (HCC) , Borderline personality disorder (HCC) , Anxiety disorder, unspecified type Take 75 mg by mouth once daily. 07/25/2024 Discontinued (Course of therapy completed) lisinopril 5 mg oral tablet (20 sources) Angiotensin Converting Enzyme Inhibitor Start: 08-14-2022 End: 08-08-2024 take 1 tablet by mouth once daily lisinopril 5 mg Tab 5 mg = 1 tab(s), Oral, Daily, # 30 tab(s), Refills(s) 5, Pharmacy: [facility]/pharmacy #[id number], 170, cm, 09/24/22 7:09:00 EST, Height/Length Dosing, 86.8, kg, 09/24/22 7:09:00 EST, Weight Dosing Start Date: 10/06/22 Status: Ordered LORazepam 0.5 mg oral tablet (14 sources) Benzodiazepine Start: 12-31-2023 take 1 tablet by mouth three times daily Lorazepam (Ativan) 0.5 mg tablet Active 0.5 MG PO Three times daily 02 13December 31, 2023 12:00am Start: 01-31-2020 End: 08-19-2022 take 1 mg by mouth twice daily Lorazepam Discontinued 1 MG PO Twice daily July 18, 2020 1:00am August 19, 2022 8:39am End: 08-08-2024 take 1 tablet by mouth every eight hours as needed LORazepam (Ativan) 1 mg tablet Take 1 tablet (1 mg) by mouth every 8 hours if needed. 08/08/2024 Discontinued (Therapy completed) magnesium oxide 400 mg oral tablet (1 source) Start: 08-08-2024 End: 08-08-2025 take 1 tablet by mouth once daily magnesium oxide (Mag-Ox) 400 mg tablet Indications: Palpitations Take 1 tablet (400 mg) by mouth once daily. 90 tablet 3 08/08/2024 08/08/2025 Active 1 ml meperidine hydrochloride 50 mg/ml injection [...] TAB PO Daily August 11, 2022 12:00am bnnkuektruem-zgl-lfpl-FA-vit K (BARIATRIC MULTIVITAMINS) 45 mg iron- 800 mcg-120 mcg cap (20 sources) multivitamin-min -iron-FA-vit K (BARIATRIC MULTIVITAMINS) 45 mg iron- 800 mcg-120 mcg cap Take by mouth. Active multivitamin-min -iron-FA-vit K (BARIATRIC MULTIVITAMINS) 45 mg iron- 800 mcg- 120 mcg cap Take by mouth. 0 Active Comment on above: Take by mouth. euahssjrdjvg-lvm-cv on-FA-vit K (Bariatric Multivitamins) 45 mg iron- 800 mcg-120 mcg capsule (1 source) multivitamin-min -i bria-FA-vit K (Bariatric Multivitamins) 45 mg iron- 800 mcg-120 mcg capsule Take by mouth. Active naproxen 500 mg oral tablet (9 sources) Nonsteroidal Anti-inflammatory Drug Start: 03-08-2024 End: 03-18-2024 take 1 tablet by mouth twice daily naproxen 500 mg Tab 500 mg = 1 tab(s), Oral, BID, X 10 day(s), # 20 tab(s), Refills(s) 0, Pharmacy: [facility]/pharmacy #[id number], 170, cm, 03/08/24 13:22:00 EDT, Height/Length Dosing, 89.4, kg, 03/08/24 13:22:00 EDT, Weight Dosing Start Date: 03/08/24 Stop Date: 03/18/24 Status: Ordered Start: 04-20-2022 take 1 tablet by juan manuel th twice daily as needed for pain naproxen 500 mg Tab 500 mg = 1 tab(s), Oral, BID, PRN for pain, # 20 tab(s), Refills(s) 0, Pharmacy: [facility]/pharmacy #[id number], 170, cm, 04/20/22 15:01:00 EDT, Height/Length Dosing, 81.5, kg, 04/20/22 15:01:00 EDT, Weight Dosing Start Date: 04/20/22 Status: Ordered 24 hr nicotine 0.583 mg/hr transdermal system (1 source) Cholinergic Nicotinic Agonist Start: 11-03-2022 End: 01-02-2023 nicotine 14 mg/24 hr Transderm ER Film 1 patch(es), Topical, Daily for 30 day(s), 30 patch(es), Refill(s) 1, [facility]/pharmacy #[id number], 170, cm, 11/03/22 13:04:00 EST, [...] FOOD Start Date: 01/29/22 Status: Ordered nystatin [id number] unt/ml oral suspension (1 source) Polyene Antifungal [...] eat or drink for 30 minutes afterwards. ondansetron 4 mg disintegrating oral tablet (20 sources) Serotonin-3 Receptor Antagonist Start: 07-25-2024 take 1 tablet by mouth every eight hours as needed ondansetron orally disintegrating (ZOFRAN ODT) 4 mg disintegrating tablet Take 1 tablet by mouth every 8 hours as needed for nausea/vomiting. 30 tablet 07/25/2024 Active Start: 09-18-2023 End: 09-19-2023 ondansetron (ZOFRAN) injecti on 4 mg Start: 08-14-2022 take 1 tablet by [facility] twice daily Zofran 8 mg Tab 8 mg = 1 tab(s), Oral, BID, # 6 tab(s), Refills(s) 1, Pharmacy: [facility]/pharmacy #[id number], 162, cm, 08/08/22 9:11:00 EST, [...] 0, Gas Start Date: 07/01/21 Status: Ordered End: 08-08-2024 take 1 tablet by mouth once daily pantoprazole (ProtoNix) 20 mg EC tablet Take 1 tablet (20 mg) by mouth once daily. 08/08/2024 Discontinued (Therapy completed) Comment on above: Take 40 mg by [...] August 15, 2023 12:47pm Start: 01-08-2019 End: 08-08-2024 take 1 tablet by mouth once daily at bedtime Topiramate (Topamax) 100 mg Tablet Discontinued 100 MG PO Daily at bedtime January 08, 2019 12:00am August 12, 2022 5:17pm Topamax Not-Takarielle ng/PRN Topamax Not-Taki ng Comment on above: [...] day(s), # 7 tab(s), Refills(s) 0, Pharmacy: [facility]/pharmacy #[id number], 170, cm, 01/31/22 16:58:00 EDT, Height/Length Dosing, 90, kg, 01/31/22 16:58:00 EDT, Weight Dosing Start Date: 01/31/22 Stop Date: 02/07/22 Status: Ordered varenicline 0.5 mg oral tablet (20 sources) [...] Start Date: 04/21/22 Status: Ordered Start: 08-27-2021 End: 08-08-2024 varenicline (Chantix) 1 mg t ablet as needed 08/27/2021 08/08/2024 Discontinued (Therapy completed) Zofran ODT 4 mg Tab-Dis (2 sources) Start: 08-08-2022 take 1 tablet by mouth every eight hours as needed for nausea Zofran ODT 4 mg Tab-Dis 4 mg = 1 tab(s), Oral, q8hr, PRN Nausea/Vomiting, # 12 tab(s), Refills(s) 0, Pharmacy: [facility]/pharmacy #[id number], 162, cm, 08/08/22 9:11:00 EST, Height/Length Dosing, 83.1, kg, 08/08/22 9:11:00 EST, Weight Dosing Start Date: 08/08/22 Status: Ordered Completed/Discontinued Medications Medication Drug Class(es) Dates Sig (Normalized) Sig (Original) acetaminophen 325 mg / HYDROcodone bitartrate 5 mg oral tablet (2 sources) Opioid Agonist End: 08-08-2024 take 1 tablet by mouth every six hours as needed HYDROcodone-acetami nophen ([place]) 5-325 mg tablet Take 1 tablet by mouth every 6 hours if needed. 08/08/2024 Discontinued (Therapy completed) acetaZOLAMIDE 250 mg oral tablet (20 sources) Carbonic Anhydrase Inhibitor Start: 07-07-2023 End: 07-01-2024 take 250 mg by mouth twice daily Acetazolamide Discontinued 250 MG PO Twice daily August 15, 2023 1:00am December 31, 2023 11:59am Start: 11-20-2022 End: 08-08-2024 take 1 capsule by mouth twice daily acetaZOLAMIDE 500 mg oral capsule, extended release 500 mg = 1 cap(s), Oral, BID, Refills(s) 0, Other (see comment) Start Date: 11/21/22 Status: Ordered Comment on above: Take 1 capsule by [facility] twice daily. Start from 500mg daily, increase to twice a day in a week ALPRAZolam 0.5 mg oral tablet (10 sources) Benzodiazepine Start: End: take 1 tablet by mouth three times daily as needed ALPRAZolam (Xanax) 0.5 mg tablet Take 1 tablet (0.5 mg) by mouth 3 times a day as needed. 11/22/2020 08/08/2024 Discontinued (Therapy completed) Start: 11-22-2020 take 1 tablet by [facility] once daily as needed for anxiety ALPRAZolam (XANAX) 0.5 MG tablet TAKE 1 TABLET BY MOUTH DAILY NEEDED FOR ANXIETY 0 11/22/2020 Active aspirin 81 mg chewable tablet (1 source) [...] tablet (20 sources) Atypical Antipsychotic Start: 06-26-2021 End: 03-08-2024 REXULTI 4 MG TABS tablet Start: 01-08-2019 [...] dextrose 5 % 50 mL IVPB cholecalciferol 1.25 mg oral tablet (9 sources) Vitamin D End: 08-08-2024 cholecalciferol (Vitamin D3) 1,250 mcg (50,000 unit) tablet Take 1 tablet (50,000 Units) by mouth every 7 days. 08/08/2024 Discontinued (Therapy completed) End: 01-07-2021 Cholecalciferol (VITAMIN D3) 125 MCG (5000 UT) TABS Take by mouth daily 0 01/07/2021 Discontinued (LIST CLEANUP) Cholecalciferol (VITAMIN D3) 125 MCG (5000 UT) TABS Take by mouth 0 Active clonazePAM 0.5 mg oral tablet (7 sources) Benzodiazepine Start: 01-05-2024 End: 07-01-2024 take 1 tablet by mouth twice daily as needed for anxiety clonazePAM (KLONOPIN) 0.5 mg tablet Indications: Panic disorder Take 1 tablet by mouth two times a day as needed for anxiety (Panic attacks) for up to 30 days. 60 tablet 01/05/2024 07/01/2024 Discontinued End: 08-08-2024 take 1 tablet by mouth twice daily clonazePAM (KlonoPIN) 0.25 mg disintegrating tablet Take 1 tablet (0.25 mg) by mouth twice a day. 08/08/2024 Discontinued (Therapy completed) cloNIDine hydrochloride 0.1 mg oral tablet (1 source) Central alpha-2 Adrenergic Agonist Start: 02-25-2023 End: 08-08-2024 take 1 tablet by mouth twice daily cloNIDine (Catapres) 0.1 mg tablet Take 1 tablet (0.1 mg) by mouth 2 times a day. 02/25/2023 08/08/2024 Discontinued (Therapy completed) doxycycline hyclate 100 mg oral capsule (3 sources) Tetracycline-cla ss Drug Start: 12-03-2018 take 1 capsule by mouth every twelve hours Doxycycline Hyclate 100 MG 1 capsule Orally every 12 hrs for 7 days Nov, Not-Taking/PRN ergocalciferol 1.25 mg oral capsule (7 sources) Provitamin D2 Compound Start: 07-19-2020 End: 08-19-2022 take 61692 [IU] by mouth every week Ergocalciferol (Vitamin D2) Discontinued 36085 UNIT PO every week July 19, 2020 [...] iopamidol (ISOVUE-370) 76 % injection 75 mL iv contrast (will be provide d with radiology test) (4 sources) Start: 07-04-2024 End: 07-05-2024 iv contrast (will be provide d with radiology test) Indications: Mass of upper outer quadrant of left breast , Fibrocystic breast changes of both breasts , Mastodynia , Inversion of left nipple , Bloody discharge from left nipple , Nipple discharge MRI Breast TANMAY Inject, intravenously, once for 1 dose. No [...] MR contrast administration guidelines link 1 Each 07/04/2024 07/05/2024 Start: 03-08-2024 End: 03-09-2024 iv contrast (will [...] the MR contrast administration guidelines link. 1 ml ketorolac tromethamine 30 mg/ml cartridge (1 source) Nonsteroidal Anti-inflammatory Drug, Cyclooxygenase Inhibitor Start: 01-08-2021 End: 01-08-2021 ketorolac (TORADOL) injection 30 mg Lidocaine (2 sources) Antiarrhythmic, Amide Local Anesthetic Start: 07-11-2024 End: 07-11-2024 X (OR/PROCEDURE) PRN, Starting on Thu07/11/24 at 0901, Until Thu07/11/24 at 0901, Intraprocedure Start: 09-28-2020 End: 09-28-2020 lidocaine PF 1 % injection 1 mL Magic Mouthwash (10 sources) Start: 02-06-2022 End: 02-20-2022 Magic Mouthwash Magic Mouthwash, 5 mL, Oral, TID, 240 mL, 0, Swish and swallow. 30 mL Nystatin + 210 mL Diphenhydramine + #5 tabs 20 mg hydrocortisone + Doxycycline 1,000 mg (tabs/cap)., [facility]/pharmacy #[id number], Compound, 170, cm, 02/06/22 9:17:00 EDT, [...] tablet Take 1 tablet by mouth daily Josue melts with iron 0 Suspended take 1 tablet by mouth once otto y Multiple Vitamins-Minerals (THERAPEUTIC MULTIVITAMIN-MINERALS) tablet Take 1 tablet by mouth daily Josue melts with iron 0 Active multivitamin with minerals tablet (1 source) Start: 07-01-2021 End: 08-08-2024 take 1 tablet by mouth once daily multivitamin with minerals tablet Take 1 tablet by mouth once daily. 07/01/2021 08/08/2024 Discontinued (Therapy completed) naltrexone hydrochloride 50 mg oral tablet (17 sources) Opioid Antagonist Start: 08-15-2023 End: 12-31-2023 inject 380 mg by intramuscular injection every month Naltrexone Microspheres (Vivitrol) 380 mg suspension,extend ed rel recon Discontinued 380 MG IM every month August 15, 2023 1:00am December 31, 2023 12:00pm Not planning on taking it this month Start: 03-12-2023 End: 03-08-2025 take 1 tablet by mouth once daily naltrexone 50 mg tablet Indications: Chronic alcoholism in remission (HCC) Take 1 tablet by mouth once daily. 90 tablet 3 03/08/2024 07/01/2024 Discontinued Start: 09-24-2022 take 1 tablet by juan manuel th once daily naltrexone 50 mg oral tablet 50 mg = 1 tab(s), Oral, Daily, # 30 tab(s), Refills(s) 0 Start Date: 09/24/22 Status: Ordered End: 08-08-2024 naltrexone ER (VivitroL) inj ection Inject 4 mL (380 mg) into the muscle. 08/08/2024 Discontinued (Therapy completed) PARoxetine hydrochloride 30 mg oral tablet (1 source) Serotonin Reuptake Inhibitor End: 08-08-2024 take 1 tablet by mouth once daily PARoxetine (Paxil) 30 mg tablet Take 1 tablet (30 mg) by mouth once daily. 08/08/2024 Discontinued (Therapy completed) 100 ml potassium chloride 0.1 meq/ml injection [...] (20 sources) Atypical Antipsychotic Start: 07-19-2020 End: 08-08-2024 take 100 mg by mouth once daily [...] 19, 2020 1:00am July 20, 2020 11:10am triamcinolone acetonide 1 mg/ml topical cream (7 sources) Corticosteroid Start: 03-08-2024 End: 07-01-2024 triamcinolone acetonide (KENALOG) 0.1 % cream Indications: Dermatitis Apply to affected area two times a day. 28.4 g 03/08/2024 07/01/2024 Discontinued Start: 11-02-2015 End: 08-08-2024 triamcinolone (Kenalog) 0.1 % ointment Apply topically twice a day. 11/02/2015 08/08/2024 Discontinued (Therapy completed) Problems Active Problems Problem Classification Problem Date [...] disturbances] Onset: 2 08-11-2022 Episodic Cardiac dysrhythmias (16 sources) Palpitations; Translations: [Palpitations] Onset: 4 08-12-2022 Episodic Chronic obstructive pulmonary disease and bronchiectasis (1 source) Bronchitis, not specified as acute or chronic Episodic Complications of surgical procedures or medical care (15 sources) Reaction to lumbar puncture; Translations: [Other reaction to spinal and lumbar puncture] Onset: 2 Episodic Conditions associated with dizziness or vertigo (1 source) Dizziness and giddiness; Translations: [DIZZINESS AND GIDDINESS] Onset: 3 Episodic Coronary atherosclerosis and other heart disease (7 sources) Angina pectoris; Translations: [Angina pectoris, unspecified] Onset: 4 08-13-2024 Chronic Deficiency and other anemia (1 source) Iron deficiency anemia; Translations: [Iron deficiency anemia, unspecified] 07-25-2024 Episodic Diseases of white blood cells (8 [...] [Depression, unspecified] Onset: 0 Nonmalignant breast conditions (1 source) Fibrocystic changes of bilateral breasts; Translations: [Diffuse cystic mastopathy of right breast] 07-04-2024 Chronic Nonspecific chest pain (11 sources) Chest pain, unspecified; Translations: [Other chest pain] Onset: 2 Episodic Nutritional deficiencies (20 sources) Vitamin D deficiency; Translations: [Vitamin D deficiency, unspecified] Onset: 0 06-27-2020 Chronic Osteoarthritis (14 sources) Arthritis; Translations: [Unspecified osteoarthritis, unspecified site] Onset: 0 05-16-2020 Chronic Other acquired deformities (1 source) Spondylolisthesis; Translations: [Spondylolisthesis, site unspecified] Onset: 4 Episodic Other aftercare (1 source) Other terminal system operator (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; Translations: [OTH USP CURRENT DRUG THERAPY] Onset: 3 Episodic Other [...] malabsorption] Onset: 3 Chronic Other gastrointestinal disorders (2 sources) Intestinal malabsorption; Translations: [Intestinal malabsorption, unspecified] Onset: 3 11-19-2022 Chronic Other gastrointestinal disorders (20 sources) Mass of pancreas 07-01-2021 Episodic Other lower respiratory disease (7 sources) Dyspnea; Translations: [Shortness of breath] Onset: 4 08-13-2024 Episodic Other lower respiratory disease (1 source) Shortness of breath; Translations: [Shortness of breath] Onset: 4 Episodic Other nervous system disorders (20 sources) Benign intracranial hypertension; Translations: [Benign intracranial [...] nutritional; endocrine; and metabolic disorders (1 source) Hypercalcemia; Translations: [Hypercalcemia] 07-01-2024 Chronic Other nutritional; endocrine; and metabolic disorders (19 sources) Overweight in adulthood with body mass index of 25 or more but less than 30; Translations: [Body mass index (BMI) 29.0-29.9, adult] Onset: 2 Episodic Other nutritional; endocrine; and metabolic disorders (15 sources) Overweight; Translations: [Overweight] Onset: 2 Episodic Other nutritional; endocrine; and metabolic disorders (2 sources) Body mass index (BMI) 29.0-29.9, adult; Translations: [Body mass index (BMI) 29.0-29.9, adult] Onset: 4 Episodic Other screening for suspected conditions (not mental disorders or infectious disease) (3 sources) Mammography abnormal; Translations: [Other abnormal and inconclusive findings on diagnostic imaging of breast] Onset: 4 07-06-2024 Episodic Other skin disorders (1 source) Skin finding; Translations: [Excessive and redundant skin and subcutaneous tissue] Episodic Personality disorders (20 sources) Borderline personality [...] codes; unclassified (4 sources) Family history of ischemic heart disease; Translations: [Family history of ischemic heart disease and other diseases of the circulatory system] Onset: 4 08-13-2024 Episodic Residual codes; unclassified (2 sources) Family history of ischemic heart disease and other diseases of the circulatory system; Translations: [Family history of ischemic heart disease and other diseases of the circulatory system] Onset: 4 Episodic Substance-related disorders (20 sources) Smoker; Translations: [...] or gangrene] Resolved: 07-24-2021 Episodic Abdominal pain (15 sources) Generalized abdominal pain; Translations: [Generalized abdominal pain] Onset: 06-13-2002 Episodic Acquired foot deformities (9 sources) Acquired bilateral pes planus; Translations: [Flat foot [pes planus] (acquired), right foot] Onset: 05-23-2020 05-23-2020 Episodic Diseases of mouth; excluding dental (4 sources) Lesion of oral mucosa; Translations: [Unspecified lesions of oral mucosa] Onset: 02-06-2022 Episodic Essential hypertension (20 sources) Essential hypertension; Translations: [Essential (primary) hypertension] [...] Vomiting, unspecified; Translations: [Nausea] Onset: 06-12-2022 Episodic Nonmalignant breast conditions (20 sources) Hypertrophy of breast; Translations: [Hypertrophy of breast] Onset: 05-13-2022 Episodic Nutritional deficiencies (4 sources) Iron deficiency; Translations: [Serum iron low] Onset: 05-27-2023 05-27-2023 Episodic Other complications of (20 sources) Poor growth affecting management; Translations: [Maternal care for other known or suspected poor growth, unspecified trimester, not applicable or unspecified] Onset: 07-03-2008 Resolved: 03-08-2024 07-03-2008 Episodic Other connective tissue disease (9 sources) Pain in both feet; Translations: [Pain in right foot] Onset: 05-23-2020 05-23-2020 Episodic Other connective tissue disease (20 sources) Plantar fasciitis; Translations: [Plantar fascial fibromatosis] Onset: 03-08-2024 Resolved: 03-08-2024 07-01-2021 Episodic Other gastrointestinal disorders (20 sources) History of bypass of stomach; Translations: [...] Episodic Other nutritional; endocrine; and metabolic disorders (20 sources) Body mass index 40+ - severely [...] Onset: 07-30-2023 Episodic Other upper respiratory infections (6 sources) Acute upper respiratory infection, unspecified; Translations: [Acute pharyngitis, unspecified] Onset: 12-01-2002 Episodic Otitis media and related conditions (1 source) Acute suppurative otitis media without spontaneous rupture of ear drum; Translations: [Acute suppurative otitis media without spontaneous rupture of ear drum, unspecified ear] Onset: 06-13-2002 07-17-2023 Episodic Pancreatic disorders (not diabetes) (20 sources) Cyst of pancreas; Translations: [Cyst of pancreas] Onset: 08-13-2023 Episodic Peripheral and visceral atherosclerosis (16 sources) Omental infarction; Translations: [Acute infarction of intestine, part and extent unspecified] Onset: 01-31-2021 Resolved: 05-27-2023 Episodic Peritonitis and intestinal abscess (4 sources) Abdominal abscess; Translations: [Peritoneal abscess] Onset: 01-30-2021 Resolved: 05-27-2023 Episodic Residual codes; unclassified (20 sources) History of operative procedure on foot; Translations: [Other specified postprocedural states] Onset: 11-20-2022 Episodic Residual codes; unclassified (17 sources) Family history of malignant neoplasm of pancreas; Translations: [Family history of malignant neoplasm of digestive organs] Onset: 03-08-2024 03-08-2024 Episodic Residual codes; unclassified (17 sources) Family history of cancer; Translations: [Family history of malignant neoplasm, unspecified] Onset: 03-08-2024 03-08-2024 Episodic Screening and history of mental health and substance abuse codes (20 sources) History of clinical finding in subject; Translations: [Personal history of nicotine dependence] Onset: 05-23-2020 05-23-2020 Episodic Spondylosis; intervertebral disc disorders; other back problems (3 sources) Backache; Translations: [Dorsalgia, unspecified] Onset: 06-13-2002 Episodic Sprains and strains (5 sources) Injury of muscle and tendon at ankle and foot level; Translations: [Strain of unspecified muscle and tendon at ankle and foot level, left foot, initial encounter] Onset: 12-06-2001 Episodic Suicide and intentional self-inflicted injury (4 [...] Test Name Value Interpretation Reference Range Facility EBV Early Abon 08-19-2024 EBV early diffuse IgG Qn (S) <9.0 Invalid Interpretation Code 0.0-8.9 [facility] Comment on above: Result Comment: Nega tive < 9.0 Equivocal 9.0 - 10.9 Positive >10.9 Performed at: [facility] [address] [id number] PhD Cordelia Madera Performed By: #### 1 [id number] #### [facility] [address] [place] [address] CHEMISTRYOrdered By: SYSTEM SYSTEM on 08-18-2024 Ferritin [Mass/Vol] 10 ng/mL Low 11 - 307 ng/mL Remisol Chem Iron [Mass/Vol] 55 ug/dL Normal 35 - 153 mcg/dL Remisol Chem Iron binding capacity [Mass/Vol] 414 ug/dL High 250 - 400 mcg/dL Remisol Chem Iron saturation [Mass fraction] 13 % Low 20 - 50 % Remisol Chem Transferrin [Mass/Vol] 296 mg/dL Normal 200 - 370 mg/dL Remisol Chem Reference Laboratory Testing Ordered By: Rayne Pinto on 08-18-2024 Test Code [id number] [address] [facility] SendOuts Test Name a1C Invalid Interpretation Code [facility] SendOutsSS ECG 12 Leadon 08-16-2024 [facility] Work Phone: 25([facility])D3 [facility] 25-hydroxyvitamin D3 [Mass/Vol] 41.9 ng/mL Normal 31.0-80.0 [facility] Comment on above: Order Comment: Speci men Type: BLOOD SPECIMENOrdering Facility: [facility] Address: [address] [place] [address] Result Comment: Clas sification of 25 [place] Vitamin D status: Deficiency/Insufficiency: < or = 30 ng/ml. Sufficiency/Optimal Levels: 31-80 ng/mL Toxicity: > 100 ng/mL. Test performed by chemiluminescent immunoassay. Performed By: #### 1 989-3 ####[facility] LABCLIA [id number] [place] [address] [place] CBC W Auto Differential pane l (Bld)on 07-26-2024 Basophils (Bld) [#/Vol] 0.05 10*3/uL Normal <0.11 [facility] Comment on above: Order Comment: Speci men Type: BLOOD SPECIMENOrdering Facility: [facility] Address: [address] [place] [address] Performed By: #### 5 7021-8 ####[facility] LABCLIA [id number] [place] [address] Basophils/100 WBC (Bld) 0.4 % Normal [facility] Comment on above: Order Comment: Speci men Type: BLOOD SPECIMENOrdering Facility: [facility] Address: [address] [place] [address] Performed By: #### 5 7021-8 ####[facility] LABCLIA [id number] [place] [address] Differential cell count method Nom (Bld) Auto Normal [facility] Comment on above: Order Comment: Speci men Type: BLOOD SPECIMENOrdering Facility: [facility] Address: [address] [place] [address] Performed By: #### 5 7021-8 ####[facility] LABCLIA [id number] [place] [address] Eosinophils (Bld) [#/Vol] 0.29 10*3/uL Normal <0.46 [facility] Comment on above: Order Comment: Speci men Type: BLOOD SPECIMENOrdering Facility: [facility] Address: [address] [place] [address] Performed By: #### 5 7021-8 ####[facility] LABCLIA [id number] [place] [address] Eosinophils/100 WBC (Bld) 2.3 % Normal [facility] Comment on above: Order Comment: Speci men Type: BLOOD SPECIMENOrdering Facility: [facility] Address: [address] [place] [address] Performed By: #### 5 7021-8 ####[facility] LABIA [id number] [place] [address] Erythrocyte distribution width (RBC) [Ratio] 16.4 % High 11.5-15.0 [facility] Comment on above: Order Comment: Speci men Type: BLOOD SPECIMENOrdering Facility: [facility] Address: [address] [place] [address] Performed By: #### 5 7021-8 ####[facility] LABCLIA [id number] [place] [address] Hematocrit (Bld) [Volume fraction] 38.2 % Normal 36.0-46.0 [facility] Comment on above: Order Comment: Speci men Type: BLOOD SPECIMENOrdering Facility: [facility] Address: [address] [place] [address] Performed By: #### 5 7021-8 ####[facility] LABIA [id number] [place] [address] Hemoglobin (Bld) [Mass/Vol] 13.0 g/dL Normal 11.5-15.5 [facility] Comment on above: Order Comment: Speci men Type: BLOOD SPECIMENOrdering Facility: [facility] Address: [address] [place] [address] Performed By: #### 5 7021-8 ####[facility] LABCLIA [id number] [place] [address] Immature granulocytes (Bld) [#/Vol] 0.04 10*3/uL Normal <0.10 [facility] Comment on above: Order Comment: Speci men Type: BLOOD SPECIMENOrdering Facility: [facility] Address: [address] [place] [address] Performed By: #### 5 7021-8 ####[facility] LABCLIA [id number] [place] [address] Immature granulocytes/100 WBC (Bld) 0.3 % Normal [facility] Comment on above: Order Comment: Speci men Type: BLOOD SPECIMENOrdering Facility: [facility] Address: [address] [place] [address] Performed By: #### 5 7021-8 ####[facility] LABCLIA [id number] [place] [address] Lymphocytes (Bld) [#/Vol] 1.78 10*3/uL Normal 1.00-4.00 [facility] Comment on above: Order Comment: Speci men Type: BLOOD SPECIMENOrdering Facility: [facility] Address: [address] [place] [address] Performed By: #### 5 7021-8 ####[facility] LABCLIA [id number] [place] [address] Lymphocytes/100 WBC (Bld) 14.4 % Normal [facility] Comment on above: Order Comment: Speci men Type: BLOOD SPECIMENOrdering Facility: [facility] Address: [address] [place] [address] Performed By: #### 5 7021-8 ####[facility] LABCLIA [id number] [place] [address] MCH (RBC) [Entitic mass] 31.4 pg Normal 26.0-34.0 [facility] Comment on above: Order Comment: Speci men Type: BLOOD SPECIMENOrdering Facility: [facility] Address: [address] [place] [address] Performed By: #### 5 7021-8 ####[facility] LABCLIA [id number] [place] [address] MCHC (RBC) [Mass/Vol] 34.0 g/dL Normal 30.5-36.0 [facility] Comment on above: Order Comment: Speci men Type: BLOOD SPECIMENOrdering Facility: [facility] Address: [address] [place] [address] Performed By: #### 5 7021-8 ####[facility] LABIA [id number] [place] [address] MCV (RBC) [Entitic vol] 92.3 fL Normal 80.0-100.0 [facility] Comment on above: Order Comment: Speci men Type: BLOOD SPECIMENOrdering Facility: [facility] Address: [address] [place] [address] Performed By: #### 5 7021-8 ####[facility] LABCLIA [id number] [place] [address] Monocytes (Bld) [#/Vol] 0.62 10*3/uL Normal <0.87 [facility] Comment on above: Order Comment: Speci men Type: BLOOD SPECIMENOrdering Facility: [facility] Address: [address] [place] [address] Performed By: #### 5 7021-8 ####[facility] LABIA [id number] [place] [address] Monocytes/100 WBC (Bld) 5.0 % Normal [facility] Comment on above: Order Comment: Speci men Type: BLOOD SPECIMENOrdering Facility: [facility] Address: [address] [place] [address] Performed By: #### 5 7021-8 ####[facility] LABCLIA [id number] [place] [address] Neutrophils (Bld) [#/Vol] 9.58 10*3/uL High 1.45-7.50 [facility] Comment on above: Order Comment: Speci men Type: BLOOD SPECIMENOrdering Facility: [facility] Address: [address] [place] [address] Performed By: #### 5 7021-8 ####[facility] LABCLIA [id number] [place] [address] Neutrophils/100 WBC (Bld) 77.6 % Normal [facility] Comment on above: Order Comment: Speci men Type: BLOOD SPECIMENOrdering Facility: [facility] Address: [address] [place] [address] Performed By: #### 5 7021-8 ####[facility] LABCLIA [id number] [place] [address] Nucleated RBC (Bld) [#/Vol] 10*3/uL Normal <0.01 [facility] Comment on above: Order Comment: Speci men Type: BLOOD SPECIMENOrdering Facility: [facility] Address: [address] [place] [address] Performed By: #### 5 7021-8 ####[facility] LABCLIA [id number] [place] [address] Nucleated RBC/100 WBC (Bld) [Ratio] 0.0 /100 WBC Normal [facility] Comment on above: Order Comment: Speci men Type: BLOOD SPECIMENOrdering Facility: [facility] Address: [address] [place] [address] Performed By: #### 5 7021-8 ####[facility] LABIA [id number] [place] [address] Platelet mean volume (Bld) [Entitic vol] 10.8 fL Normal 9.0-12.7 [facility] Comment on above: Order Comment: Speci men Type: BLOOD SPECIMENOrdering Facility: [facility] Address: [address] [place] [address] Performed By: #### 5 7021-8 ####[facility] LABCLIA [id number] [place] [address] Platelets (Bld) [#/Vol] 302 10*3/uL Normal 150-400 [facility] Comment on above: Order Comment: Speci men Type: BLOOD SPECIMENOrdering Facility: [facility] Address: [address] [place] [address] Performed By: #### 5 7021-8 ####[facility] LABIA [id number] [place] [address] RBC (Bld) [#/Vol] 4.14 10*6/uL Normal 3.90-5.20 [facility] Comment on above: Order Comment: Speci men Type: BLOOD SPECIMENOrdering Facility: [facility] Address: [address] [place] [address] Performed By: #### 5 7021-8 ####[facility] LABIA [id number] [place] [address] WBC (Bld) [#/Vol] 12.36 10*3/uL High 3.70-11.00 [facility] Comment on above: Order Comment: Speci men Type: BLOOD SPECIMENOrdering Facility: [facility] Address: [address] [place] [address] Performed By: #### 5 7021-8 ####[facility] LABIA [id number] [place] [address] Comprehensive metabolic 2000 panelon 07-26-2024 Albumin [Mass/Vol] 4.7 g/dL Normal 3.9-4.9 [facility] Comment on above: Order Comment: Speci men Type: BLOOD SPECIMEN [facility] Address: [address] [place] [address] Performed By: #### 2 4331-1 #### [facility] CLIA [id number] [address] [place], [place] [address] [facility] CLIA [id number] [address] [place] [address] ALP [Catalytic activity/Vol] 64 U/L Normal 34-123 [facility] Comment on above: Order Comment: Speci men Type: BLOOD SPECIMEN [facility] Address: [address] [place] [address] Performed By: #### 2 4331-1 #### [facility] CLIA [id number] [address] [place], [place] [address] [facility] CLIA [id number] [address] [place] [address] ALT [Catalytic activity/Vol] 13 U/L Normal 7-38 [facility] Comment on above: Order Comment: Speci men Type: BLOOD SPECIMEN [facility] Address: [address] [place], [place] [address] Performed By: #### 2 4331-1 #### [facility] CLIA [id number] [address] [place], [place] [address] [facility] CLIA [id number] [address] [place] [address] Anion gap [Moles/Vol] 11 mmol/L Normal 8-15 [facility] Comment on above: Order Comment: Speci men Type: BLOOD SPECIMEN [facility] Address: [address] [place], [place] [address] Performed By: #### 2 4331-1 #### [facility] CLIA [id number] [address] [place], [place] [address] [facility] CLIA [id number] [address] [place] [address]290 AST [Catalytic activity/Vol] 20 U/L Normal 13-35 [facility] Comment on above: Order Comment: Speci men Type: BLOOD SPECIMEN [facility] Address: [address] [place] [address] Performed By: #### 2 4331-1 #### [facility] CLIA [id number] [address] [place] [address] LAB CLIA [id number] [address] [place] [address] Bilirubin [Mass/Vol] 0.2 mg/dL Normal 0.2-1.3 [facility] Comment on above: Order Comment: Speci men Type: BLOOD SPECIMEN [facility] Address: [address] [place] [address] Performed By: #### 2 4331-1 #### [facility] CLIA [id number] [address] [place] [address] LAB CLIA [id number] [address] [place], [place] [address] Calcium [Mass/Vol] 9.6 mg/dL Normal 8.5-10.2 [facility] Comment on above: Order Comment: Speci men Type: BLOOD SPECIMEN [facility] Address: [address] [place] [address] Performed By: #### 2 4331-1 #### [facility] CLIA [id number] [address] [place] [address] OF [facility] CLIA [id number] [address] [place] [address] Chloride [Moles/Vol] 106 mmol/L Normal 98-107 [facility] Comment on above: Order Comment: Speci men Type: BLOOD SPECIMEN [facility] Address: [address] [place] [address] Performed By: #### 2 4331-1 #### [facility] CLIA [id number] [address] [place] [address] OF [facility] CLIA [id number] [address] [place] [address] CO2 [Moles/Vol] 22 mmol/L Normal 22-30 [facility] Comment on above: Order Comment: Speci men Type: BLOOD SPECIMEN [facility] Address: [address] [place] [address] Performed By: #### 2 4331-1 #### [facility] CLIA [id number] [address] [place] [address] LAB CLIA [id number] [address] [place] [address] Creatinine [Mass/Vol] 0.69 mg/dL Normal 0.58-0.96 [facility] Comment on above: Order Comment: Speci men Type: BLOOD SPECIMEN [facility] Address: [address] [place] [address] Performed By: #### 2 4331-1 #### [facility] CLIA [id number] [address] [place] [address] LAB CLIA [id number] [address] [place] [address] Creatinine and Glomerular filtration rate.predicted panel (S/P/Bld) 116 mL/min/1.73m??? Normal >=60 [facility] Comment on above: Order Comment: Speci men Type: BLOOD SPECIMEN [facility] Address: [address] [place] [address] Result Comment: Brenda mated Glomerular Filtration Rate [...] reflect actual GFR. Performed By: #### 2 4331-1 #### [facility] CLIA [id number] [address] [place] [id number] [facility] CLIA [id number] [address] [place] [address] Glucose [Mass/Vol] 91 mg/dL Normal 74-99 [facility] Comment on above: Order Comment: Specarielle [place] Type: BLOOD SPECIMEN [facility] Address: [address] [place] [address] Result Comment: The [place] Diabetes Association (ADA) provides guidance for cutoff [...] Standards of Medical Care in Diabetes 2016, [place] Diabetes Association. Diabetes Care. 2016.39(Suppl 1). Performed By: #### 2 4331-1 #### [facility] CLIA [id number] [address] [place] [address] LAB CLIA [id number] [address] [place] [address] Potassium [Moles/Vol] 4.3 mmol/L Normal 3.7-5.1 [facility] Comment on above: Order Comment: Speci men Type: BLOOD SPECIMEN [facility] Address: [address] [place] [address] Performed By: #### 2 4331-1 #### [facility] CLIA [id number] [address] [place] [address] LAB CLIA [id number] [address] [place] [address] Protein [Mass/Vol] 7.3 g/dL Normal 6.3-8.0 [facility] Comment on above: Order Comment: Speci men Type: BLOOD SPECIMEN [facility] Address: [address] [place] [address] Performed By: #### 2 4331-1 #### [facility] CLIA [id number] [address] [place] [address] LAB CLIA [id number] [address] [place], [place] [address] Sodium [Moles/Vol] 139 mmol/L Normal 136-144 [facility] Comment on above: Order Comment: Speci men Type: BLOOD SPECIMEN [facility] Address: [address] [place] [address] Performed By: #### 2 4331-1 #### [facility] CLIA [id number] [address] [place] [address] LAB CLIA [id number] [address] [place], [place] [address] Urea nitrogen [Mass/Vol] 9 mg/dL Normal 7-21 [facility] Comment on above: Order Comment: Speci men Type: BLOOD SPECIMEN [facility] Address: [address] [place] [address] Performed By: #### 2 4331-1 #### [facility] CLIA [id number] [address] [place] [address] LAB CLIA [id number] [address] [place], [place] [address] Ferritin SerPl-ncon 2023 Ferritin [Mass/Vol] 17.5 ng/mL Normal 14.7-205.1 [facility] Comment on above: Order Comment: Speci men Type: BLOOD SPECIMENOrdering Facility: [facility] Address: [address] [place] [address] Performed By: #### 5 0190-8, 2731-8, 2276-4 ####[facility] LABCLIA [id number] [place] [address] [place] [employer] Iron binding capaci ty panelon 07-26-2024 Iron [Mass/Vol] 114 ug/dL Normal 41-186 [facility] Comment on above: Order Comment: Speci men Type: BLOOD SPECIMENOrdering Facility: [facility] Address: [address] [place] [address] Performed By: #### 5 0190-8, 2731-8, 2276-4 ####[facility] LABIA [id number] [place] [address] [place] Iron binding capacity [Mass/Vol] 360 ug/dL Normal 232-386 [facility] Comment on above: Order Comment: Speci men Type: BLOOD SPECIMENOrdering Facility: [facility] Address: [address] [place] [address] Performed By: #### 5 0190-8, 2731-8, 2276-4 ####[facility] LABCLIA [id number] [place] [address] [place] Iron/TIBC [Molar ratio] 31.7 % Normal 15.0-57.0 [facility] Comment on above: Order Comment: Speci men Type: BLOOD SPECIMENOrdering Facility: [facility] Address: [address] [place] [address] Performed By: #### 5 0190-8, 2731-8, 2276-4 ####[facility] LABIA [id number] [place] [id number] [place] PTH-Intact SerPl-[facility] Foundationon 07-15 Parathyrin.intact [Mass/Vol] 17 pg/mL Normal 15-65 [facility] Comment on above: Order Comment: Speci men Type: BLOOD SPECIMENOrdering Facility: [facility] Address: [address] [place] [address] Performed By: #### 5 0190-8, 2731-8, 2276-4 ####[facility] LABCLIA [id number] [id number] [address] [place] CNOVon 07-25-2024 CNOV Office Visit (FPNRMO C) -------- SHAZIA CHOU ([id number]) 1990 F Date Time Provider Department 07/25/24 3:00 PM TEVIN CARSON [facility] During your visit today, we recorded the following information about you: Pulse Blood pressure Weight 67/minute 122/72 83.8 kg Tevin Carson DO 07/25/2024 4:57 PM Signed [facility] Family Medicine Visit Assessment and Plan 1. Bipolar affective disorder in remission (HCC) - ICD9: 296.80, ICD10: F31.70 (primary diagnosis) 2. Borderline personality disorder (HCC) - ICD9: 301.83, ICD10: F60.3 3. Anxiety disorder, unspecified type - ICD9: 300.00, ICD10: F41.9 -Patient with significantly worsening mood, depression mainly, changing psychiatrist and set to be seen end of next month. She does not have any active SI/HI, but does report that there are many days when she wishes that something natural were to happen that would take her pain away. She overall has supportive factors including family, children and overall at the moment I do not think she would benefit from inpatient hospitalization. -I discussed with her that she ultimately needs to get into see psychiatry, but until she can see them, I can increase her Lamictal from 75 to 100 mg to see if this provides her any benefit. We will plan to follow-up in the next 3 to 4 weeks to reassess and can consider further medication titration until she is seen by psychiatry. She is to call 911 or go to the hospital if she is to have worsening depressive symptoms and is understanding of this. - LAMOTRIGINE 25 MG TABLET 4. Chest pain, unspecified type - ICD9: 786.50, ICD10: R07.9 -Previously seen for this pain, still ongoing and is set to see cardiology. Overall do not feel that this is cardiac related, but does have strong family history and with persistence of symptoms, do feel a cardiology evaluation/stress testing is warranted. She is to go to ED if she is to have persistent chest pressure that does not go away, changing of symptoms, radiation of symptoms, or accompanying shortness of breath/nausea/lightheade dness/arm pain. 5. Iron deficiency anemia, unspecified iron deficiency anemia type - ICD9: 280.9, ICD10: D50.9 -She is due for blood work from her last appointment, in addition to this it was noted on review that she was significantly iron deficient and we will recheck iron stores and blood counts at this time. 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 Has also cut down on smoking, less than 1 pack/day at this time. She is happy about this as she has been saving money. Was in ED this past Thursday due to worsening mood. She feels very down, depressed. She is very adamant that she does not want to hurt herself and that she would never hurt herself, but notes that there have been more days lately that she had wished that she had some type of illness because of how bad her depression is at the moment. She is working to find a psychiatrist and has an appointment with 1 next month. Her current regimen of medication includes duloxetine 60 mg twice daily, Lamictal 75 mg daily, trazodone 50 mg at bedtime. She is scheduled to see a therapist tomorrow for DBT, she is already done the intake appointment and is looking forward to the actual therapy sessions. She does report that she continues to experience the chest discomfort she had complained of at her last appointment. She is scheduled to see a hand tool filer at for this. ROS: As per HPI. Objective BP 122/72 Pulse 67 Wt 83.8 kg (184 lb 11.9 oz) LMP 10/23/2022 SpO2 100% BMI 28.94 kg/m? Physical Exam Constitutional: Appearance: Normal appearance. Cardiovascular: Rate and Rhythm: Normal rate and regular rhythm. Pulmonary: Effort: Pulmonary effort is normal. Breath sounds: Normal breath sounds. Abdominal: General: Abdomen is flat. Palpations: Abdomen is soft. Musculoskeletal: Cervical back: Normal range of motion and neck supple. Right lower leg: No edema. Left lower leg: No edema. Skin: General: Skin is warm and dry. Capillary Refill: Capillary refill takes less than 2 seconds. Neurological: General: No focal deficit present. Mental Status: She is alert and oriented to person, place, and time. Psychiatric: Mood and Affect: Mood normal. Behavior: Behavior normal. Allergies As of Date: 07/25/2024 Noted Allergy Reaction ARIPIPRAZOLE 08/19/2022 1 - Mental Status Change 14 - Other: See Comments 16 - Unknown BUPROPION 07/16/2021 16 - Unknown COCONUT 11/20/2022 7 - Swelling Date Reviewed: 07/25/2024 Reviewed by: Yvonne Hester LPN - Fully Assessed Reason for Visi (more content not included)... Normal [facility] SHAZ[facility]OU ([id number]) 1990 F Date Time Provider Department 07/13/24 PATRICIA TATE RADDE During your visit today, we recorded the following information about you: Allergies As of Date: 07/13/2024 Noted Allergy Reaction ARIPIPRAZOLE 08/19/2022 1 - Mental Status Change 14 - Other: See Comments 16 - Unknown BUPROPION 07/16/2021 16 - Unknown COCONUT 11/20/2022 7 - Swelling Date Reviewed: 07/04/2024 Reviewed by: Naldo Borrego MA - Fully Assessed Reason for Visit: Results [95] Appointment [186] Prescriptions as of 07/13/2024 - varenicline (CHANTIX) 0.5 mg (11)- 1 [...] by mouth two times a day. - traZODone (DESYREL) 50 mg tablet Take 50 mg by mouth daily at bedtime. - dnurxxpnhwnp-hqh-iqcs-FA -vit K (BARIATRIC MULTIVITAMINS) 45 mg iron- 800 mcg-120 mcg cap Take by mouth. Problem List As Of Date 07/13/2024 Noted Resolved Poor growth, affecting management of [...] Panic disorder [F41.0] 03/08/2024 Encounter Status:Closed by PATRICIA TATE Isreal on 07/13/24 Normal [facility] DBT Breast - left diagnostic for implanton 07-11-2024 IMPRESSION: ULTRASOU ND GUIDED BIOPSY Site 1: Successful ultrasound guided biopsy of the area at 1 o'clock, 15 cm from the nipple in the left breast with placement of a clip was successful. Waiting for pathology results. A final report will be issued when these become available. Interpreting Radiologist: Alexandra Son M.D. Electronically signed on: 07/11/2024 Assistant Construction Superintendent: SERGIO Transcribe Date/Time: Jul 11 2024 8:53A Dictated by: ALEXANDRA SON MD This examination was interpreted and the report reviewed and electronically signed by: ALEXANDRA SON MD on Jul 11 2024 9:45AM [facility] DIVISION OF RADIOLOGY * * *Final Report* * * DATE OF EXAM: Jul 11 2024 9:17AM [facility] 0628 - LINDA GAMALIELG Moshe LEY LT / PROCEDURE REASON: Abnormal mammogram of left breast * * * * Physician Interpretation * * * * RESULT: [facility] [address] [place] [id number] HISTORY: 33 year old patient presents for ultrasound guided core biopsy of area at 1 o'clock, 15 cm from the nipple in the left breast. PATIENT CONSENT: A time out was performed immediately prior to procedure start with the radiology team, correctly identifying the patient name, date of , procedure, anatomy (including marking of site and side), patient position, relevant diagnostic and radiology test results, safety precautions, and procedure-specific equipment needs. The procedure was explained to the patient including the risks, benefits and alternatives. Medications and allergies were also reviewed. The risks, including but not limited to infection and bleeding, were reviewed by the performing physician and the patient agreed to undergo the procedure. The radiologist and technologist were present throughout the entire procedure. Correlation is made to exams dated: 07/04/2024 (ultrasound) and 07/04/2024 (mammogram). Site 1: Audible Time Out Time: 9:00 AM Procedure Start Time: 9:01 AM Procedure Stop Time: 9:06 AM An ultrasound guided biopsy using real-time ultrasound was performed for the concerning area located in the left breast at 1 o'clock 15 cm from the nipple. This was described on the previous ultrasound report. The skin was prepped in the usual manner. Local anesthetic was administered to the access site. The abnormality was approached from the lateral aspect. A 14 gauge biopsy needle was placed adjacent to the abnormality under ultrasound guidance. Once the needle was documented to be in the correct location, 3 passes were made using a spring-loaded biopsy device. A ribbon biopsy marker was then placed under sonographic guidance. A skin closure strip and a sterile dressing were applied to the access site. During the procedure, there were no biopsy complications observed. The specimens were sent to the laboratory for pathological analysis. Post procedure imaging demonstrates the clip in appropriate position at the biopsy target. The breasts are heterogeneously dense, which may obscure small masses. DIVISION OF RADIOLOGY Provider, [facility] - 07/11/2024 * * *Final Report* * * DATE OF EXAM: Jul 11 2024 9:17AM [facility] 0628 - LINDA GAMALIELG Moshe LEY LT / PROCEDURE REASON: Abnormal mammogram of left breast * * * * Physician Interpretation * * * * RESULT: [facility] [address] [place] [address] HISTORY: 33 year old patient presents for ultrasound guided core biopsy of area at 1 o'clock, 15 cm from the nipple in the left breast. PATIENT CONSENT: A time out was performed immediately prior to procedure start with the radiology team, correctly identifying the patient name, date of , procedure, anatomy (including marking of site and side), patient position, relevant diagnostic and radiology test results, safety precautions, and procedure-specific equipment needs. The procedure was explained to the patient including the risks, benefits and alternatives. Medications and allergies were also reviewed. The risks, including but not limited to infection and bleeding, were reviewed by the performing physician and the patient agreed to undergo the procedure. The radiologist and technologist were present throughout the entire procedure. Correlation is made to exams dated: 07/04/2024 (ultrasound) and 07/04/2024 (mammogram). Site 1: Audible Time Out Time: 9:00 AM Procedure Start Time: 9:01 AM Procedure Stop Time: 9:06 AM An ultrasound guided biopsy using real-time ultrasound was performed for the concerning area located in the left breast at 1 o'clock 15 cm from the nipple. This was described on the previous ultrasound report. The skin was prepped in the usual manner. Local anesthetic was administered to the access site. The abnormality was approached from the lateral aspect. A 14 gauge biopsy needle was placed adjacent to the abnormality under ultrasound guidance. Once the needle was documented to be in the correct location, 3 passes were made using a spring-loaded biopsy device. A ribbon biopsy marker was then placed under sonographic guidance. A skin closure strip and a sterile dressing were applied to the access site. During the procedure, there were no biopsy complications observed. The specimens were sent to the laboratory for pathological analysis. Post procedure imaging demonstrates the clip in appropriate position at the biopsy target. The breasts are heterogeneously dense, which may obscure small masses. IMPRESSION IMPRESSION: ULTRASOUND GUIDED BIOPSY Site 1: Successful ultrasound guided biopsy of the area at 1 o'clock, 15 cm from the nipple in the left breast with placement of a clip was successful. Waiting for pathology results. A final report will be issued when these become available. Interpreting Radiologist: Alexandra Son M.D. Electronically signed on: 07/11/2024 Assistant Construction Superintendent: SERGIO Transcrialfonzo Date/Time: Jul 11 2024 8:53A Dictated by: ALEXANDRA SON MD This examination was interpreted and the report reviewed and electronically signed by: ALEXANDRA SON MD on Jul 11 2024 9:45AM EST [facility] Radiology Study observation (narrative) [facility] LINDA LEY LTon 024 LINDA LEY LT * * *Final Report* * * * * * SEE BOTTOM OF REPORT FOR ADDENDED TEXT * * * DATE OF EXAM: Jul 11 2024 9:17AM W 0628 - LINDA LEY LT / PROCEDURE REASON: Abnormal mammogram of left breast * * * * Physician Interpretation * * * * RESULT: [facility] [address] [place] [address] - - - - - - - - - - ADDENDED REPORT - - - - - - - - - - 07/13/2024 at 07:42:29 Addendum: The final pathology results of the patient's ultrasound guided core biopsy demonstrate the following; 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 This is concordant with the imaging findings. RECOMMENDATION Site 1: Post Biopsy: Imaging follow up as indicated below. Clinical follow up is recommended. Patient should follow up with her PCP and start screening per ACR/NCCN guidelines/risk assessment. A breast imaging nurse navigator will call the patient to discuss the results and recommendations. The breast imaging nurse will review these pathology results by phone with the patient. Interpreting Radiologist: Alexandra Son M.D. Electronically signed on: 07/13/2024 - - - - - - - - - - ORIGINAL REPORT - - - - - - - - - - HISTORY: 33 year old patient presents for ultrasound guided core biopsy of area at 1 o'clock, 15 cm from the nipple in the left breast. PATIENT CONSENT: A time out was performed immediately prior to procedure start with the radiology team, correctly identifying the patient name, date of , procedure, anatomy (including marking of site and side), patient position, relevant diagnostic and radiology test results, safety precautions, and procedure-specific equipment needs. The procedure was explained to the patient including the risks, benefits and alternatives. Medications and allergies were also reviewed. The risks, including but not limited to infection and bleeding, were reviewed by the performing physician and the patient agreed to undergo the procedure. The radiologist and technologist were present throughout the entire procedure. Correlation is made to exams dated: 07/04/2024 (ultrasound) and 07/04/2024 (mammogram). Site 1: Audible Time Out Time: 9:00 AM Procedure Start Time: 9:01 AM Procedure Stop Time: 9:06 AM An ultrasound guided biopsy using real-time ultrasound was performed for the concerning area located in the left breast at 1 o'clock 15 cm from the nipple. This was described on the previous ultrasound report. The skin was prepped in the usual manner. Local anesthetic was administered to the access site. The abnormality was approached from the lateral aspect. A 14 gauge biopsy needle was placed adjacent to the abnormality under ultrasound guidance. Once the needle was documented to be in the correct location, 3 passes were made using a spring-loaded biopsy device. A ribbon biopsy marker was then placed under sonographic guidance. A skin closure strip and a sterile dressing were applied to the access site. During the procedure, there were no biopsy complications observed. The specimens were sent to the laboratory for pathological analysis. Post procedure imaging demonstrates the clip in appropriate position at the biopsy target. The breasts are heterogeneously dense, which may obscure small masses. IMPRESSION: ULTRASOUND GUIDED BIOPSY Site 1: Successful ultrasound guided biopsy of the area at 1 o'clock, 15 cm from the nipple in the left breast with placement of a clip was successful. Waiting for pathology results. A final report will be issued when these become available. Interpreting Radiologist: Alexandra Son M.D. Electronically signed on: 07/11/2024 Assistant Construction Superintendent: SERGIO Transcribe Date/Time: Jul 11 2024 8:53A Dictated by: ALEXANDRA SON MD This examination was interpreted and the report reviewed and electronically signed by: ALEXANDRA SON MD on Jul 11 2024 9:45AM EST This document has been addended by: ALEXANDRA SON MD on Jul 13 2024 3:56PM EST [id number] Normal [facility] US BIOPSY BREAST LTon [facility] US BIOPSY BREAST LT * * *Final Report* * * * * * SEE BOTTOM OF REPORT FOR ADDENDED TEXT * * * DATE OF EXAM: Jul 11 2024 9:15AM W 0597 - [facility] US BIOPSY BREAST LT / PROCEDURE REASON: Abnormal mammogram of left breast * * * * Physician Interpretation * * * * RESULT: [facility] [address] [place] [address] - - - - - - - - - - ADDENDED REPORT - - - - - - - - - - 07/13/2024 at 07:42:29 Addendum: The final pathology results of the patient's ultrasound guided core biopsy demonstrate the following; 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 This is concordant with the imaging findings. RECOMMENDATION Site 1: Post Biopsy: Imaging follow up as indicated below. Clinical follow up is recommended. Patient should follow up with her PCP and start screening per ACR/NCCN guidelines/risk assessment. A breast imaging nurse navigator will call the patient to discuss the results and recommendations. The breast imaging nurse will review these pathology results by phone with the patient. Interpreting Radiologist: Alexandra Son M.D. Electronically signed on: 07/13/2024 - - - - - - - - - - ORIGINAL REPORT - - - - - - - - - - HISTORY: 33 year old patient presents for ultrasound guided core biopsy of area at 1 o'clock, 15 cm from the nipple in the left breast. PATIENT CONSENT: A time out was performed immediately prior to procedure start with the radiology team, correctly identifying the patient name, date of , procedure, anatomy (including marking of site and side), patient position, relevant diagnostic and radiology test results, safety precautions, and procedure-specific equipment needs. The procedure was explained to the patient including the risks, benefits and alternatives. Medications and allergies were also reviewed. The risks, including but not limited to infection and bleeding, were reviewed by the performing physician and the patient agreed to undergo the procedure. The radiologist and technologist were present throughout the entire procedure. Correlation is made to exams dated: 07/04/2024 (ultrasound) and 07/04/2024 (mammogram). Site 1: Audible Time Out Time: 9:00 AM Procedure Start Time: 9:01 AM Procedure Stop Time: 9:06 AM An ultrasound guided biopsy using real-time ultrasound was performed for the concerning area located in the left breast at 1 o'clock 15 cm from the nipple. This was described on the previous ultrasound report. The skin was prepped in the usual manner. Local anesthetic was administered to the access site. The abnormality was approached from the lateral aspect. A 14 gauge biopsy needle was placed adjacent to the abnormality under ultrasound guidance. Once the needle was documented to be in the correct location, 3 passes were made using a spring-loaded biopsy device. A ribbon biopsy marker was then placed under sonographic guidance. A skin closure strip and a sterile dressing were applied to the access site. During the procedure, there were no biopsy complications observed. The specimens were sent to the laboratory for pathological analysis. Post procedure imaging demonstrates the clip in appropriate position at the biopsy target. The breasts are heterogeneously dense, which may obscure small masses. IMPRESSION: ULTRASOUND GUIDED BIOPSY Site 1: Successful ultrasound guided biopsy of the area at 1 o'clock, 15 cm from the nipple in the left breast with placement of a clip was successful. Waiting for pathology results. A final report will be issued when these become available. Interpreting Radiologist: Alexandra Son M.D. Electronically signed on: 07/11/2024 Assistant Construction Superintendent: SERGIO Transcribe Date/Time: Jul 11 2024 8:52A Dictated by: ALEXANDRA SON MD This examination was interpreted and the report reviewed and electronically signed by: ALEXANDRA SON MD on Jul 11 2024 9:45AM EST This document has been addended by: ALEXANDRA SON MD on Jul 13 2024 3:56PM EST [id number] Normal [facility] No Panel InformationOrdered By: [facility] Provider on 07-11-2024 [facility] SURGICAL PATHOLOGYon 024 CASE REPORT Normal [facility] Comment on above: Order Comment: Speci men Type: BLOOD SPECIMEN [facility] Address: [address] [place] [address] Result Comment: Surg ical Pathology Report Case: [id number] Authorizing Provider: Alexandra Son Collected: 07/11/2024 09:01 AM MD Nicole Ordering Location: Mammography Received: 07/11/2024 09:37 AM Pathologist: Mia Erwin MD Specimen: Breast, Left, Core Biopsy, Asymmetry 1:00 15 cm FN Ribbon clip Performed By: #### 2 4331-1 #### [facility] CLIA [id number] [address] [place] [address] [facility] CLIA [id number] [address] [place] [address] FINAL DIAGNOSIS Normal [facility] Comment on above: Order Comment: Speci men Type: BLOOD SPECIMEN [facility] Address: [address] [place] [address] Result Comment: Left breast, 1:00, asymmetry, 15 cm FN, ribbon clip, needle core biopsy: - 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 JR 07/12/2024 Performed By: #### 2 4331-1 #### [facility] CLIA [id number] [address] [place] [address] LAB CLIA [id number] [address] [place], [place] [id number] FINAL PERFORMING LAB Normal [facility] Comment on above: Order Comment: Speci men Type: BLOOD SPECIMEN [facility] Address: [address] [place] [address] Result Comment: Diag nostic interpretation performed at [facility], [address] [place] [address] CLIA# [id number] Photocopying Equipment Mechanic: Jarred Canales M.D. Performed By: #### 2 4331-1 #### [facility] CLIA [id number] [address] [place] [address] LAB CLIA [id number] [address] [place] [address] GROSS DESCRIPTION Normal [facility] Comment on above: Order Comment: Speci men Type: BLOOD SPECIMEN [facility] Address: [address] [place] [address] Result Comment: AEusebio Rivers reast, Left, Core Biopsy Received in formalin labeled as left breast are multiple segments of cylindrical tissue aggregating to 1.4 x 0.5 x 0.2 cm, parkinson-yellow and of a soft consistency. The specimen was removed from the patient at 9:01 AM on 07/11/2024. On the same day, the specimen was placed in formalin at no time recorded. Totally submitted in formalin in one cassette. Gross examination performed at [facility], [address] [place] [address] 07/11/2024 5:14 PM Performed By: #### 2 [id number] #### [facility] CLIA [id number] [address] [place] [address] LAB CLIA [id number] [address] [place] [address] [place] Guidance for biopsy of David acosta 07-11-2024 IMPRESSION: ULTRASOU ND GUIDED BIOPSY Site 1: Successful ultrasound guided biopsy of the area at 1 o'clock, 15 cm from the nipple in the left breast with placement of a clip was successful. Waiting for pathology results. A final report will be issued when these become available. Interpreting Radiologist: Alexandra Son M.D. Electronically signed on: 07/11/2024 Assistant Construction Superintendent: SERGIO Transcribe Date/Time: Jul 11 2024 8:52A Dictated by: ALEXANDRA SON MD This examination was interpreted and the report reviewed and electronically signed by: ALEXANDRA SON MD on Jul 11 2024 9:45AM [facility] DIVISION OF RADIOLOGY * * *Final Report* * * DATE OF EXAM: Jul 11 2024 9:15AM [facility] 0597 - LINDA US BIOPSY BREAST LT / PROCEDURE REASON: Abnormal mammogram of left breast * * * * Physician Interpretation * * * * RESULT: [facility] [address] [place] [address] HISTORY: 33 year old patient presents for ultrasound guided core biopsy of area at 1 o'clock, 15 cm from the nipple in the left breast. PATIENT CONSENT: A time out was performed immediately prior to procedure start with the radiology team, correctly identifying the patient name, date of , procedure, anatomy (including marking of site and side), patient position, relevant diagnostic and radiology test results, safety precautions, and procedure-specific equipment needs. The procedure was explained to the patient including the risks, benefits and alternatives. Medications and allergies were also reviewed. The risks, including but not limited to infection and bleeding, were reviewed by the performing physician and the patient agreed to undergo the procedure. The radiologist and technologist were present throughout the entire procedure. Correlation is made to exams dated: 07/04/2024 (ultrasound) and 07/04/2024 (mammogram). Site 1: Audible Time Out Time: 9:00 AM Procedure Start Time: 9:01 AM Procedure Stop Time: 9:06 AM An ultrasound guided biopsy using real-time ultrasound was performed for the concerning area located in the left breast at 1 o'clock 15 cm from the nipple. This was described on the previous ultrasound report. The skin was prepped in the usual manner. Local anesthetic was administered to the access site. The abnormality was approached from the lateral aspect. A 14 gauge biopsy needle was placed adjacent to the abnormality under ultrasound guidance. Once the needle was documented to be in the correct location, 3 passes were made using a spring-loaded biopsy device. A ribbon biopsy marker was then placed under sonographic guidance. A skin closure strip and a sterile dressing were applied to the access site. During the procedure, there were no biopsy complications observed. The specimens were sent to the laboratory for pathological analysis. Post procedure imaging demonstrates the clip in appropriate position at the biopsy target. The breasts are heterogeneously dense, which may obscure small masses. DIVISION OF RADIOLOGY Provider, [facility] - 07/11/2024 * * *Final Report* * * DATE OF EXAM: Jul 11 2024 9:15AM [facility] 0597 - LINDA US BIOPSY BREAST LT / PROCEDURE REASON: Abnormal mammogram of left breast * * * * Physician Interpretation * * * * RESULT: [facility] [address] [place] [address] HISTORY: 33 year old patient presents for ultrasound guided core biopsy of area at 1 o'clock, 15 cm from the nipple in the left breast. PATIENT CONSENT: A time out was performed immediately prior to procedure start with the radiology team, correctly identifying the patient name, date of , procedure, anatomy (including marking of site and side), patient position, relevant diagnostic and radiology test results, safety precautions, and procedure-specific equipment needs. The procedure was explained to the patient including the risks, benefits and alternatives. Medications and allergies were also reviewed. The risks, including but not limited to infection and bleeding, were reviewed by the performing physician and the patient agreed to undergo the procedure. The radiologist and technologist were present throughout the entire procedure. Correlation is made to exams dated: 07/04/2024 (ultrasound) and 07/04/2024 (mammogram). Site 1: Audible Time Out Time: 9:00 AM Procedure Start Time: 9:01 AM Procedure Stop Time: 9:06 AM An ultrasound guided biopsy using real-time ultrasound was performed for the concerning area located in the left breast at 1 o'clock 15 cm from the nipple. This was described on the previous ultrasound report. The skin was prepped in the usual manner. Local anesthetic was administered to the access site. The abnormality was approached from the lateral aspect. A 14 gauge biopsy needle was placed adjacent to the abnormality under ultrasound guidance. Once the needle was documented to be in the correct location, 3 passes were made using a spring-loaded biopsy device. A ribbon biopsy marker was then placed under sonographic guidance. A skin closure strip and a sterile dressing were applied to the access site. During the procedure, there were no biopsy complications observed. The specimens were sent to the laboratory for pathological analysis. Post procedure imaging demonstrates the clip in appropriate position at the biopsy target. The breasts are heterogeneously dense, which may obscure small masses. IMPRESSION IMPRESSION: ULTRASOUND GUIDED BIOPSY Site 1: Successful ultrasound guided biopsy of the area at 1 o'clock, 15 cm from the nipple in the left breast with placement of a clip was successful. Waiting for pathology results. A final report will be issued when these become available. Interpreting Radiologist: Alexandra Son M.D. Electronically signed on: 07/11/2024 Assistant Construction Superintendent: SERGIO Transcribe Date/Time: Jul 11 2024 8:52A Dictated by: ALEXANDRA SON MD This examination was interpreted and the report reviewed and electronically signed by: ALEXANDRA SON MD on Jul 11 2024 9:45AM EST [facility] Radiology Study observation (narrative) [facility] DBT Breast - bilateral diagn ostic for implanton 07-05-2024 * * *Final Report* * * DATE OF EXAM: Jul 04 2024 11:59AM [facility] 0627 - LINDA DIAG Moshe ZAMBRANO / PROCEDURE REASON: Mass of upper outer quadrant of left breast * * * * Physician Interpretation * * * * RESULT: HISTORY: Patient is 33 years old and is seen for diagnostic evaluation of a palpable abnormality, focal pain and bloody discharge in the left breast. COMPARISON STUDIES: The present examination has been compared to a prior imaging study dated 04/22/2022. MAMMOGRAM TECHNIQUE: The study was acquired using full field digital technology and interpreted from soft copy. Digital Breast Tomosynthesis (DBT) images were obtained and used to assist in the interpretation of this examination. Computer-aided detection was utilized by the radiologist in the interpretation of this examination. MAMMOGRAM FINDINGS: The breasts are heterogeneously dense, which may obscure small masses. Finding 1: There is a focal asymmetry in the posterior depth upper outer quadrant of the left breast. The finding is more prominent on the present exam. Focal asymmetry correlates to the area of palpable concern in the left breast. Finding 2: There is a calcified lymph node in the left axilla. Findings 3: No mammographic correlation for reported left bloody discharge. No suspicious masses, calcifications or other abnormalities are seen in the right breast. ULTRASOUND TECHNIQUE: Targeted ultrasound of the indicated area was performed. Garcia scale images were saved. ULTRASOUND FINDINGS: The breast tissue composition shows a homogeneous background echotexture with scattered areas of fibroglandular densities. Finding 1: Ultrasound demonstrates an oval area measuring 3.3 cm in the posterior depth region of the left breast at 1 o'clock. This area correlates with mammographic finding in reported palpable abnormality. Findings 3, no sonographic correlation for reported left bloody discharge, with no suspicious findings seen. DIVISION OF RADIOLOGY Provider, [facility] - 07/05/2024 * * *Final Report* * * DATE OF EXAM: Jul 04 2024 11:59AM [facility] 0627 - LINDA MELVIN ZAMBRANO / PROCEDURE REASON: Mass of upper outer quadrant of left breast * * * * Physician Interpretation * * * * RESULT: HISTORY: Patient is 33 years old and is seen for diagnostic evaluation of a palpable abnormality, focal pain and bloody discharge in the left breast. COMPARISON STUDIES: The present examination has been compared to a prior imaging study dated 04/22/2022. MAMMOGRAM TECHNIQUE: The study was acquired using full field digital technology and interpreted from soft copy. Digital Breast Tomosynthesis (DBT) images were obtained and used to assist in the interpretation of this examination. Computer-aided detection was utilized by the radiologist in the interpretation of this examination. MAMMOGRAM FINDINGS: The breasts are heterogeneously dense, which may obscure small masses. Finding 1: There is a focal asymmetry in the posterior depth upper outer quadrant of the left breast. The finding is more prominent on the present exam. Focal asymmetry correlates to the area of palpable concern in the left breast. Finding 2: There is a calcified lymph node in the left axilla. Findings 3: No mammographic correlation for reported left bloody discharge. No suspicious masses, calcifications or other abnormalities are seen in the right breast. ULTRASOUND TECHNIQUE: Targeted ultrasound of the indicated area was performed. Garcia scale images were saved. ULTRASOUND FINDINGS: The breast tissue composition shows a homogeneous background echotexture with scattered areas of fibroglandular densities. Finding 1: Ultrasound demonstrates an oval area measuring 3.3 cm in the posterior depth region of the left breast at 1 o'clock. This area correlates with mammographic finding in reported palpable abnormality. Findings 3, no sonographic correlation for reported left bloody discharge, with no suspicious findings seen. IMPRESSION IMPRESSION: Finding 1: There is a palpable area in the left breast at 1:00 posterior depth, which resembles fibroglandular tissue/PASH. This has increased in size and/more prominent from 2021 exam. Given interval change in reported palpable abnormality, ultrasound-guided biopsy is recommended for further evaluation. Finding 2: Calcified lymph nodes node in the left axilla is benign. Patient has multiple tattoos in both sides, which can explain calcified node. Findings 3: No mammographic or sonographic correlation for reported left bloody discharge. Clinical follow-up is recommended. Breast MRI can be performed for further evaluation as clinical discretion. Patient saw Fatuma Tyler CNP today. BI-RADS Category 4A: Suspicious - Low suspicion for malignancy Results and recommendations reviewed with the patient. Informed consent was signed in the office today. RISK: Based on the Tyrer-Cuzick (TC) risk assessment model, this patient has a 8.2% lifetime risk of developing breast cancer, meaning they are at average risk for developing breast cancer. However, this is only an estimate based on available history provided on the patient's questionnaire. We encourage all patients to talk with their providers about these results, further recommendations for managing breast health, and appropriate supplemental screening options if the patient has dense breast tissue. Interpreting Radiologist: Abi Asif M.D. Electronically signed on: 07/05/2024 Assistant Construction Superintendent: WILLIAM Transcribe Date/Time: Jul 05 2024 11:53A Dictated by: ABI ASIF MD This examination was interpreted and the report reviewed and electronically signed by: ABI ASIF MD on Jul 05 2024 11:58AM [facility] Panel Informationon 07-05 IMPRESSION: Finding 1: There is a palpable area in the left breast at 1:00 posterior depth, which resembles fibroglandular tissue/PASH. This has increased in size and/more prominent from 2021 exam. Given interval change in reported palpable abnormality, ultrasound-guided biopsy is recommended for further evaluation. Finding 2: Calcified lymph nodes node in the left axilla is benign. Patient has multiple tattoos in both sides, which can explain calcified node. Findings 3: No mammographic or sonographic correlation for reported left bloody discharge. Clinical follow-up is recommended. Breast MRI can be performed for further evaluation as clinical discretion. Patient saw Fatuma Tyler CNP today. BI-RADS Category 4A: Suspicious - Low suspicion for malignancy Results and recommendations reviewed with the patient. Informed consent was signed in the office today. RISK: Based on the Tyrer-Cuzick (TC) risk assessment model, this patient has a 8.2% lifetime risk of developing breast cancer, meaning they are at average risk for developing breast cancer. However, this is only an estimate based on available history provided on the patient's questionnaire. We encourage all patients to talk with their providers about these results, further recommendations for managing breast health, and appropriate supplemental screening options if the patient has dense breast tissue. Interpreting Radiologist: Abi Asif M.D. Electronically signed on: 07/05/2024 Assistant Construction Superintendent: WILLIAM Transcribe Date/Time: Jul 05 2024 11:53A Dictated by: ABI ASIF MD This examination was interpreted and the report reviewed and electronically signed by: ABI ASIF MD on Jul 05 2024 11:58AM [facility] DIVISION OF RADIOLOGY No Panel InformationOrdered By: [facility] Provider on 07-05-2024 [facility] US Breast - left limitedon 1 * * *Final Report* * * DATE OF EXAM: Jul 04 2024 12:12PM [facility] 0593 - LINDA BREAST LTD LT / PROCEDURE REASON: Mass of upper outer quadrant of left breast * * * * Physician Interpretation * * * * RESULT: HISTORY: Patient is 33 years old and is seen for diagnostic evaluation of a palpable abnormality, focal pain and bloody discharge in the left breast. COMPARISON STUDIES: The present examination has been compared to a prior imaging study dated 04/22/2022. MAMMOGRAM TECHNIQUE: The study was acquired using full field digital technology and interpreted from soft copy. Digital Breast Tomosynthesis (DBT) images were obtained and used to assist in the interpretation of this examination. Computer-aided detection was utilized by the radiologist in the interpretation of this examination. MAMMOGRAM FINDINGS: The breasts are heterogeneously dense, which may obscure small masses. Finding 1: There is a focal asymmetry in the posterior depth upper outer quadrant of the left breast. The finding is more prominent on the present exam. Focal asymmetry correlates to the area of palpable concern in the left breast. Finding 2: There is a calcified lymph node in the left axilla. Findings 3: No mammographic correlation for reported left bloody discharge. No suspicious masses, calcifications or other abnormalities are seen in the right breast. ULTRASOUND TECHNIQUE: Targeted ultrasound of the indicated area was performed. Garcia scale images were saved. ULTRASOUND FINDINGS: The breast tissue composition shows a homogeneous background echotexture with scattered areas of fibroglandular densities. Finding 1: Ultrasound demonstrates an oval area measuring 3.3 cm in the posterior depth region of the left breast at 1 o'clock. This area correlates with mammographic finding in reported palpable abnormality. Findings 3, no sonographic correlation for reported left bloody discharge, with no suspicious findings seen. DIVISION OF RADIOLOGY Provider, [facility] - 07/05/2024 * * *Final Report* * * DATE OF EXAM: Jul 04 2024 12:12PM [facility] 0593 - LINDA BREAST [facility] LT / PROCEDURE REASON: Mass of upper outer quadrant of left breast * * * * Physician Interpretation * * * * RESULT: HISTORY: Patient is 33 years old and is seen for diagnostic evaluation of a palpable abnormality, focal pain and bloody discharge in the left breast. COMPARISON STUDIES: The present examination has been compared to a prior imaging study dated 04/22/2022. MAMMOGRAM TECHNIQUE: The study was acquired using full field digital technology and interpreted from soft copy. Digital Breast Tomosynthesis (DBT) images were obtained and used to assist in the interpretation of this examination. Computer-aided detection was utilized by the radiologist in the interpretation of this examination. MAMMOGRAM FINDINGS: The breasts are heterogeneously dense, which may obscure small masses. Finding 1: There is a focal asymmetry in the posterior depth upper outer quadrant of the left breast. The finding is more prominent on the present exam. Focal asymmetry correlates to the area of palpable concern in the left breast. Finding 2: There is a calcified lymph node in the left axilla. Findings 3: No mammographic correlation for reported left bloody discharge. No suspicious masses, calcifications or other abnormalities are seen in the right breast. ULTRASOUND TECHNIQUE: Targeted ultrasound of the indicated area was performed. Garcia scale images were saved. ULTRASOUND FINDINGS: The breast tissue composition shows a homogeneous background echotexture with scattered areas of fibroglandular densities. Finding 1: Ultrasound demonstrates an oval area measuring 3.3 cm in the posterior depth region of the left breast at 1 o'clock. This area correlates with mammographic finding in reported palpable abnormality. Findings 3, no sonographic correlation for reported left bloody discharge, with no suspicious findings seen. IMPRESSION IMPRESSION: Finding 1: There is a palpable area in the left breast at 1:00 posterior depth, which resembles fibroglandular tissue/PASH. This has increased in size and/more prominent from 202 exam. Given interval change in reported palpable abnormality, ultrasound-guided biopsy is recommended for further evaluation. Finding 2: Calcified lymph nodes node in the left axilla is benign. Patient has multiple tattoos in both sides, which can explain calcified node. Findings 3: No mammographic or sonographic correlation for reported left bloody discharge. Clinical follow-up is recommended. Breast MRI can be performed for further evaluation as clinical discretion. Patient saw Fatuma Tyler CNP today. BI-RADS Category 4A: Suspicious - Low suspicion for malignancy Results and recommendations reviewed with the patient. Informed consent was signed in the office today. RISK: Based on the Tyrer-Cuzick (TC) risk assessment model, this patient has a 8.2% lifetime risk of developing breast cancer, meaning they are at average risk for developing breast cancer. However, this is only an estimate based on available history provided on the patient's questionnaire. We encourage all patients to talk with their providers about these results, further recommendations for managing breast health, and appropriate supplemental screening options if the patient has dense breast tissue. Interpreting Radiologist: Abi Asif M.D. Electronically signed on: 07/05/2024 Assistant Construction Superintendent: WILLIAM Transcribe Date/Time: Jul 05 2024 11:53A Dictated by: ABI ASIF MD This examination was interpreted and the report reviewed and electronically signed by: ABI ASIF MD on Jul 05 2024 11:58AM EST [facility] CNOVon 07-04-2024 CNOV Office Visit ([facility] ) -------- SHAZIA CHOU ([id number]) 1990 F Date Time Provider Department 07/04/24 11:00 AM [facility] During your visit today, we recorded the following information about you: Weight Height 83.9 kg 1.702 m Fatuma Tyler APRN.CNP 07/06/2024 8:25 AM Signed MEDICAL BREAST PATIENT NAME: Shazia Chou July 04, 2024 REFERRAL: She is self referred for an opinion regarding regarding LEFT breast painful lump and bloody nipple discharge HISTORY of PRESENT ILLNESS: Shazia Chou is a 33 year old premenopausal female who presents to the [facility] today for evaluation of left breast lump and incident of bloody left nipple discharge. She reports a long history of concern for left breast lump and couple incidents of bloody nipple discharge. 04/22/22 she was seen at OSH and underwent diagnostic mammogram and ultrasound to assess breast concern with negative findings. MRI of breast was completed 06/10/22 per report was negative for any evidence of malignancy-small moderate area of otherwise unremarkable appearing asymmetric breast tissue was seen in left lateral breast at posterior depth which may account for the palpable area of concern. 12/09/23 she underwent left diagnostic mammogram and ultrasound with negative findings. The lump in left breast has persisted and is tender with palpation. She hasn't noticed any further bloody nipple discharge which she confirms was spontaneous She is aware we do not have her imaging uploaded which may delay final interpretation in her care The patient denies any skin changes. Genetic Testing: No Scheduled 11/22/24-due to FH pancreatic cancer Vitamin D 25 Hydroxy (no units) Date Value 06/20/2009 20.4 Reference range: 31.0 to 80.0 Unit: ng/mL Classification of 25 [place] Vitamin D status: Insufficiency/Moderate Deficiency: < or = 30 ng/mL Sufficiency/Optimal Levels: 31 to 80 ng/mL Toxicity: > 100 ng/mL Test performed by chemiluminescent immunoassay. Performed at [facility] [place] [address] She takes a multivitamin daily. BMD: No PERSONAL BREAST HISTORY: Breast biopsy: No Breast cysts: No Breast surgery: No Breast cancer: No CANCER SURVEILLANCE: Mammograms: Date in [facility]: 12/09/23; results - Negative-Left breast only Breast MRI: Date in [facility]: 06/10/22; results - Negative Colonoscopy: No RISK FACTORS FOR BREAST CANCER: Age at the onset of menses: 12 years of age. P: 3 Age at the of first child: 17 years of age. She breast fed. Age at menopause: The patient is not menopausal at this time. She has had uterus removed with negative pathology (done for adenomyosis), but ovaries remain; Date: 2022 She has had a hysterectomy and does not use control. History of Mantle Radiation prior to the age of 28: No Obesity: -Last 1 Encounter Wt Readings: Date: Wt: 07/01/2024 86.3 kg (190 lb 4.1 oz) -28.98 kg/m2 Mammographic density: The breasts are heterogeneously dense which limits the sensitivity of mammography Personal History of Benign Atypical Breast Biopsy: No Alcohol use: Sober for past 2 weeks PAST MEDICAL HISTORY: Patient specifically denies history of: DVT, PE, migraine headaches without aura, osteopenia, and osteoporosis. 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 There is no family history of melanoma, sarcoma or leukemia. Osteoporosis: None Stroke: Mother Blood Clot: Father Heart attack: Yes on maternal side Thyroid Nodule or Goiter: None Autism: son REVIEW OF SYSTEMS: The patient specifically denies unintentional weight loss, abnormal swelling in the arms or legs, chest pain, shortness of breath, persistant cough, heartburn, urinary incontinence, vaginal dryness, decreased libido or unusual bony pains. + insomnia, hot flashes, night sweats,and severe headaches The sensitive examination was dis (more content not included)... Normal [facility] DIAG W AV BILon 2023 [facility] DIAG W AV TANMAY * * *Final Report* * * DATE OF EXAM: Jul 04 2024 11:59AM SSW 0627 - [facility] DIAG W AV TANMAY / PROCEDURE REASON: Mass of upper outer quadrant of left breast * * * * Physician Interpretation * * * * RESULT: HISTORY: Patient is 33 years old and is seen for diagnostic evaluation of a palpable abnormality, focal pain and bloody discharge in the left breast. COMPARISON STUDIES: The present examination has been compared to a prior imaging study dated 04/22/2022. MAMMOGRAM TECHNIQUE: The study was acquired using full field digital technology and interpreted from soft copy. Digital Breast Tomosynthesis (DBT) images were obtained and used to assist in the interpretation of this examination. Computer-aided detection was utilized by the radiologist in the interpretation of this examination. MAMMOGRAM FINDINGS: The breasts are heterogeneously dense, which may obscure small masses. Finding 1: There is a focal asymmetry in the posterior depth upper outer quadrant of the left breast. The finding is more prominent on the present exam. Focal asymmetry correlates to the area of palpable concern in the left breast. Finding 2: There is a calcified lymph node in the left axilla. Findings 3: No mammographic correlation for reported left bloody discharge. No suspicious masses, calcifications or other abnormalities are seen in the right breast. ULTRASOUND TECHNIQUE: Targeted ultrasound of the indicated area was performed. Garcia scale images were saved. ULTRASOUND FINDINGS: The breast tissue composition shows a homogeneous background echotexture with scattered areas of fibroglandular densities. Finding 1: Ultrasound demonstrates an oval area measuring 3.3 cm in the posterior depth region of the left breast at 1 o'clock. This area correlates with mammographic finding in reported palpable abnormality. Findings 3, no sonographic correlation for reported left bloody discharge, with no suspicious findings seen. IMPRESSION: Finding 1: There is a palpable area in the left breast at 1:00 posterior depth, which resembles fibroglandular tissue/PASH. This has increased in size and/more prominent from 2021 exam. Given interval change in reported palpable abnormality, ultrasound-guided biopsy is recommended for further evaluation. Finding 2: Calcified lymph nodes node in the left axilla is benign. Patient has multiple tattoos in both sides, which can explain calcified node. Findings 3: No mammographic or sonographic correlation for reported left bloody discharge. Clinical follow-up is recommended. Breast MRI can be performed for further evaluation as clinical discretion. Patient saw Fatuma Tyler CNP today. BI-RADS Category 4A: Suspicious - Low suspicion for malignancy Results and recommendations reviewed with the patient. Informed consent was signed in the office today. RISK: Based on the Tyrer-Cuzick (TC) risk assessment model, this patient has a 8.2% lifetime risk of developing breast cancer, meaning they are at average risk for developing breast cancer. However, this is only an estimate based on available history provided on the patient's questionnaire. We encourage all patients to talk with their providers about these results, further recommendations for managing breast health, and appropriate supplemental screening options if the patient has dense breast tissue. Interpreting Radiologist: Abi Asif M.D. Electronically signed on: 07/05/2024 Assistant Construction Superintendent: WILLIAM Transcribe Date/Time: Jul 05 2024 11:53A Dictated by: ABI ASIF MD This examination was interpreted and the report reviewed and electronically signed by: ABI ASIF MD on Jul 05 2024 11:58AM EST [id number] [facility] BREAST LTD LTon 07-04 [facility] BREAST [facility] * * *Final Report* * * DATE OF EXAM: Jul 04 2024 12:12PM SSW 0593 - [facility] [employer] LT / PROCEDURE REASON: Mass of upper outer quadrant of left breast * * * * Physician Interpretation * * * * RESULT: HISTORY: Patient is 33 years old and is seen for diagnostic evaluation of a palpable abnormality, focal pain and bloody discharge in the left breast. COMPARISON STUDIES: The present examination has been compared to a prior imaging study dated 04/22/2022. MAMMOGRAM TECHNIQUE: The study was acquired using full field digital technology and interpreted from soft copy. Digital Breast Tomosynthesis (DBT) images were obtained and used to assist in the interpretation of this examination. Computer-aided detection was utilized by the radiologist in the interpretation of this examination. MAMMOGRAM FINDINGS: The breasts are heterogeneously dense, which may obscure small masses. Finding 1: There is a focal asymmetry in the posterior depth upper outer quadrant of the left breast. The finding is more prominent on the present exam. Focal asymmetry correlates to the area of palpable concern in the left breast. Finding 2: There is a calcified lymph node in the left axilla. Findings 3: No mammographic correlation for reported left bloody discharge. No suspicious masses, calcifications or other abnormalities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 above: Order Comment: Speci men Type: BLOOD SPECIMENOrdering Facility: [facility] Address: [address] [place] [address] Result Comment: The result suggests no evidence of active infection with Hepatitis C virus. Should recent infection be suspected, repeat testing may be considered 4-6 weeks after this draw. Performed By: #### 1 6128-1 ####[facility] LABCLIA [id number] [address] HIV 1+2 Ab IA Qlon 4 HIV 1 and 2 Ab IA.rapid Nom (S/P/Bld) Normal [facility] Comment on above: Order Comment: Speci men Type: BLOOD SPECIMEN [facility] Address: [address] [place] [address] Result Comment: Test not indicated. Performed By: #### 2 4331-1 #### [facility] LAB CLIA [id number] [address] [place] [address] LAB CLIA [id number] [address] [place] [address] HIV 1+2 Ab+HIV1 p24 Ag IA Ql Non-Reactive Normal Nonreactive [facility] Comment on above: Order Comment: Speci men Type: BLOOD SPECIMEN [facility] Address: [address] [place] [address] Performed By: #### 2 4331-1 #### [facility] LAB CLIA [id number] [address] [place] [address] LAB CLIA [id number] [address] [place] [address] HIV immunoassay testing algorithm interpretation (S/P/Bld) [Interp] Normal [facility] Comment on above: Order Comment: Speci men Type: BLOOD SPECIMEN [facility] Address: [address] [place] [address] Result Comment: No e vidence of HIV-1 [...] test results or diagnoses. Performed By: #### 2 4331-1 #### [facility] LAB CLIA [id number] [address] [place] [address] [place] [facility] CLIA [id number] [address] [place] [address] HbA1c (Bld)on 02-25-2024 Average glucose Estimated from glycated hemoglobin (Bld) [Mass/Vol] 111 mg/dL Normal [facility] Comment on above: Order Comment: Speci men Type: BLOOD SPECIMEN [facility] Address: [address] [place] [address] Result Comment: eAG: (Estimated average glucose) is a calculated value from HgbA1c and is kiosk sales representative of the average blood glucose level in the last 2-3 month period. Performed By: #### 5 5454-3 #### [facility] LAB CLIA [id number] [address] [place] [address] [place] HbA1c (Bld) [Mass fraction] 5.5 % Normal 4.3-5.6 [facility] Comment on above: Order Comment: Cecili men Type: BLOOD SPECIMEN [facility] Address: [address] [place] [address] Result Comment: Amer [place] Diabetes Association guidelines indicate that patients with HgbA1c in the range 5.7-6.4% are at increased risk for development of diabetes, and intervention by lifestyle modification may be beneficial. HgbA1c greater or equal to 6.5% is considered diagnostic of diabetes. Performed By: #### 5 5454-3 #### [facility] LAB CLIA [id number] [address] [place] [address] [place] Lipid 1996 panelon 4 Cholesterol [Mass/Vol] 142 mg/dL Normal <200 [facility] Comment on above: Order Comment: Speci men Type: BLOOD SPECIMEN [facility] Address: [address] [place] [address] Result Comment: <200 mg/dL, Desirable 200-239 mg/dL, Borderline high >239 mg/dL, High Performed By: #### 2 4331-1 #### [facility] LAB CLIA [id number] [address] [place] [address] LAB CLIA [id number] [address] [place] [address] Cholesterol in HDL [Mass/Vol] 72 mg/dL Normal >39 [facility] Comment on above: Order Comment: Speci men Type: BLOOD SPECIMEN [facility] Address: [address] [place] [address] Result Comment: 40-5 9 mg/dL, Acceptable >59 mg/dL, High: Negative risk factor for coronary heart disease <40 mg/dL, Low: Positive risk factor for coronary heart disease Performed By: #### 2 4331-1 #### [facility] CLIA [id number] [address] [place] [address] LAB CLIA [id number] [address] [place], [place] [address] Cholesterol in LDL [Mass/Vol] 60 mg/dL Normal <100 [facility] Comment on above: Order Comment: Speci men Type: BLOOD SPECIMEN [facility] Address: [address] [place] [address] Result Comment: <100 mg/dL, Optimal 100-129 mg/dL, Near optimal/above optimal 130-159 mg/dL, Borderline high 160-189 mg/dL, High >189 mg/dL, Very high Secondary prevention optimal LDL Cholesterol levels are recommended to be < 70 mg/dL Performed By: #### 2 4331-1 #### [facility] CLIA [id number] [address] [place] [address] LAB CLIA [id number] [address] [place] [address] Cholesterol in LDL/Cholesterol in HDL [Mass ratio] 0.83 {ratio} Normal <2.54 [facility] Comment on above: Order Comment: Philip birmingham Type: BLOOD SPECIMEN [facility] Address: [address] [place] [address] Result Comment: Eric kasper: 1. National Cholesterol Education Program ATP III Guideline At-A-Glance Quick Desk Reference: National Heart, Lung, and Blood [place]. National Institutes of Health. 2001: NIH Publication No. 01-3305. 2. An International Atherosclerosis Society position paper: global recommendations for the management of dyslipidemia: executive summary, Atherosclerosis. 2014: 232(2):410-413. Performed By: #### 2 4331-1 #### [facility] CLIA [id number] [address] [place] [address] LAB CLIA [id number] [address] [place] [address] Cholesterol in VLDL [Mass/Vol] 10 mg/dL Normal <30 [facility] Comment on above: Order Comment: Philip birmingham Type: BLOOD SPECIMEN [facility] Address: [address] [place] [address] Performed By: #### 2 4331-1 #### [facility] CLIA [id number] [address] [place] [address] LAB CLIA [id number] [address] [place] [address] Cholesterol non HDL [Mass/Vol] 70 mg/dL Normal <130 [facility] Comment on above: Order Comment: Philip birmingham Type: BLOOD SPECIMEN [facility] Address: [address] [place] [address] Result Comment: <130 mg/dL, Optimal 130-159 mg/dL, Near optimal/above optimal 160-189 mg/dL, Borderline high 190-219 mg/dL, High >219 mg/dL, Very high Secondary prevention optimal non HDL Cholesterol levels are recommended to be <100 mg/dL Performed By: #### 2 4331-1 #### [facility] CLIA [id number] [address] [place] [address] LAB CLIA [id number] [address] [place] [address] Cholesterol.total/Cho lesterol in HDL [Mass ratio] 1.97 {ratio} Normal <5.10 [facility] Comment on above: Order Comment: Speci men Type: BLOOD SPECIMEN [facility] Address: [address] [place], [place] [address] Performed By: #### 2 4331-1 #### [facility] CLIA [id number] [address] [place] [address] LAB CLIA [id number] [address] [place] [address] FASTING TIME 12 hrs Normal [facility] Comment on above: Order Comment: Speci men Type: BLOOD SPECIMEN [facility] Address: [address] [place], [place] [address] Performed By: #### 2 4331-1 #### [facility] CLIA [id number] [address] [place] [address] LAB CLIA [id number] [address] [place] [address] Triglyceride [Mass/Vol] 51 mg/dL Normal <150 [facility] Comment on above: Order Comment: Speci men Type: BLOOD SPECIMEN [facility] Address: [address] [place], [place] [address] Result Comment: <150 mg/dL, Normal 150-199 mg/dL, Borderline high 200-499 mg/dL, High >499 mg/dL, Very high Performed By: #### 2 4331-1 #### [facility] CLIA [id number] [address] [place], [place] [address] [facility] CLIA [id number] [address] [place] [address] CBC with Diffon 01-13-2024 Abs. Basophil 0.08 k/uL Normal 0.00-0.20 [facility] Comment on above: Performed By: #### ALFONSO PFEIFFER, CDP #### [facility] [address] [place] [address] Manager: Harpal Adair MD Abs.Imm.Granulocyte 0.05 k/uL Normal 0.00-0.30 [facility] Comment on above: Performed By: #### ALFONSO PFEIFFER, CDP #### [address] [address] [address] Manager: Harpal Adair MD Abs.Neutrophil (Seg) 7.68 k/uL Normal 1.50-8.10 [facility] Comment on above: Performed By: #### ALFONSO PFEIFFER, CDP #### [facility] [address] [place] [address] Manager: Harpal Adair MD Basophils/100 WBC (Bld) 1 % Normal 0-2 [facility] Comment on above: Performed By: #### ALFONSO PFEIFFER, CDP #### [facility] [address] [place] [address] Manager: Harpal Adair MD Eosinophils (Bld) [#/Vol] 0.25 10*3/uL Normal 0.00-0.44 [facility] Comment on above: Performed By: #### ALFONSO PFEIFFER, CDP #### [facility] [address] [place] [address] Manager: Harpal Adair MD Eosinophils/100 WBC (Bld) 2 % Normal 1-4 [facility] Comment on above: Performed By: #### ALFONSO PFEIFFER, CDP #### [facility] [address] [place] [address] Manager: Harpal Adair MD Erythrocyte distribution width (RBC) [Ratio] 18.6 % High 11.8-14.4 [facility] Comment on above: Performed By: #### ALFONSO PFEIFFER, CDP #### [facility] [address] [place] [address] Manager: Harpal Adair MD Hematocrit (Bld) [Volume fraction] 36.7 % Normal 36.3-47.1 [facility] Comment on above: Performed By: #### ALFONSO PFEIFFER, CDP #### [facility] [address] [place] [address] Manager: Harpal Adair MD Hemoglobin (Bld) [Mass/Vol] 11.3 g/dL Low 11.9-15.1 [facility] Comment on above: Performed By: #### ALFONSO PFEIFFER, CDP #### [facility] [address] [place] [address] Manager: Harpal Adair MD Immature granulocytes/100 WBC (Bld) 0 % Normal 0 [facility] Comment on above: Performed By: #### ALFONSO PFEIFFER, CDP #### [facility] [address] [place] [address] Manager: Harpal Adair MD Lymphocytes (Bld) [#/Vol] 2.30 10*3/uL Normal 1.10-3.70 [facility] Comment on above: Performed By: #### ALFONSO PFEIFFER, CDP #### [facility] [address] [place] [address] Manager: Harpal Adair MD Lymphocytes/100 WBC (Bld) 21 % Low 24-43 [facility] Comment on above: Performed By: #### ALFONSO PFEIFFER, CDP #### [facility] [address] [place] [address] Manager: Harpal Adair MD MCH (RBC) [Entitic mass] 28.4 pg Normal 25.2-33.5 [facility] Comment on above: Performed By: #### ALFONSO PFEIFFER, CDP #### [facility] [address] [place] [address] Manager: Harpal Adair MD MCHC (RBC) [Mass/Vol] 30.8 g/dL Normal 28.4-34.8 [facility] Comment on above: Performed By: #### ALFONSO PFEIFFER, CDP #### [facility] [address] [place] [address] Manager: Harpal Adair MD MCV (RBC) [Entitic vol] 92.2 fL Normal 82.6-102.9 [facility] Comment on above: Performed By: #### ALFONSO PFEIFFER, CDP #### [facility] [address] [place] [address] Manager: Harpal Adair MD Monocytes (Bld) [#/Vol] 0.77 10*3/uL Normal 0.10-1.20 [facility] Comment on above: Performed By: #### ALFONSO PFEIFFER, CDP #### [facility] [address] [place] [address] Manager: Harpal Adair MD Monocytes/100 WBC (Bld) 7 % Normal 3-12 [facility] Comment on above: Performed By: #### ALFONSO PFEIFFER, CDP #### [facility] [address] [place] [address] Manager: Harpal Adair MD Neutrophil (Seg) 69 % High 36-65 [facility] Comment on above: Performed By: #### ALFONSO PFEIFFER, CDP #### [facility] [address] [place] [address] Manager: Harpal Adair MD NRBC Automated 0.0 per 100 WBC Normal 0.0 [facility] Comment on above: Performed By: #### ALFONSO PFEIFFER, CDP #### [facility] [address] [place] [address] Manager: Harpal Adair MD Platelet mean volume (Bld) [Entitic vol] 11.4 fL Normal 8.1-13.5 [facility] Comment on above: Performed By: #### ALFONSO PFEIFFER, CDP #### [facility] [address] [place] [address] Manager: Harpal Adair MD Platelets (Bld) [#/Vol] 387 10*3/uL Normal 138-453 [facility] Comment on above: Performed By: #### ALFONSO PFEIFFER, CDP #### [address] [address] [address] Manager: Harpal Adair MD RBC (Bld) [#/Vol] 3.98 10*6/uL Normal 3.95-5.11 [facility] Comment on above: Performed By: #### ALFONSO PFEIFFER, CDP #### [facility] [address] [place] [address] Manager: Harpal Adair MD RBC morphology finding Nom (Bld) ANISOCYTOSIS PRESENT Normal [facility] Comment on above: Performed By: #### ALFONSO PFEIFFER, CDP #### [facility] [address] [place] [address] Manager: Harpal Adair MD WBC (Bld) [#/Vol] 11.1 10*3/uL Normal 3.5-11.3 [facility] Comment on above: Performed By: #### ALFONSO PFEIFFER, CDP #### [facility] [address] [place] [address] Manager: Harpal Adair MD Ferritinon 01-13-2024 Ferritin [Mass/Vol] 9 ng/mL Low 13-150 [facility] Comment on above: Result Comment: FERRITIN Reference Ranges: Adult Males 20 - 60 years: 30 - 400 ng/mL Adult females 17 - 60 years: 13 - 150 ng/mL Adults greater than 60 years: no established reference range Pediatrics: no established reference range Performed By: #### F ALFONSO BELL, CDP #### [facility] [address] [place] [address] Manager: Harpal Adair MD Iron Binding Cap.on 01-13-20 24 % Fe Saturation 9 % Low 20-55 [facility] Comment on above: Performed By: #### ALFONSO PFEIFFER, CDP #### [facility] [address] [place] [address] Manager: Harpal Adair MD Iron [Mass/Vol] 37 ug/dL Normal 37-145 [facility] Comment on above: Performed By: #### ALFONSO PFEIFFER, CDP #### [facility] [address] [place] [address] Manager: Harpal Adair MD Total Fe Binding Cap 390 ug/dL Normal 250-450 [facility] Comment on above: Performed By: #### ALFONSO PFEIFFER, CDP #### [facility] [address] [place] [address] Manager: Harpal Adair MD Unbound Fe Bind Cap 353 ug/dL High 112-347 [facility] Comment on above: Performed By: #### F ALFONSO BELL, CDP #### [facility] [address] [place] [address] Manager: MD Ernesto Naylor 01-05-2024 GLORIA Telephone ([facility]) -------- JOSÉ ANTONIOKARINSHAZIA ([id number]) 1990 F Date Time Provider Department 01/05/24 DEQUAN ELIA N [facility] During your visit today, we recorded the [...] 60 mg by mouth once daily. - pjodbtnzqjem-shf-mgpg-FA -vit K (BARIATRIC MULTIVITAMINS) 45 mg iron- [...] Status:Closed by ELIA BAIRES on 01/05/24 Normal [facility] TOXICOLOGY SCRN W/CONF,URINE on 01-05-2024 Amphetamines Confirm (U) [Mass/Vol] Negative Negative [facility] Comment on above: Cutoff threshold at 1000 ng/mL. Barbiturates Urine Negative Negative [facility] Comment on above: Cutoff threshold at 200 ng/mL. Benzodiazepines Urine Negative Negative [facility] Comment on above: Cutoff threshold at 200 ng/mL. Cannabinoids Screen Ql (U) Sent for confirmation Abnormal Negative [facility] Comment on above: Cutoff threshold at 50 ng/mL. Cocaine Ql (U) Negative Negative [facility] Comment on above: Cutoff threshold at 300 ng/mL. Ethanol (U) [Mass/Vol] mg/dL NINF - 11 mg/dL [facility] Interpretation and review of laboratory results Abnormal [facility] Opiates Screen Ql (U) Negative Negative [facility] Comment on above: Cutoff threshold at 300 ng/mL. oxyCODONE cutoff Screen (U) [Mass/Vol] Negative Negative [facility] Comment on above: Cutoff threshold at 100 ng/mL. Phencyclidine Ql (U) Negative Negative [facility] Comment on above: Cutoff threshold at 25 ng/mL. Immunoassay screen o nly. Cross reactivity with other substances can occur with immunoassay screening. Detection of any drug(s) in this urine toxicology panel is presumptive only. These tests are for medical purposes only and should not be used for compliance monitoring, legal, or forensic use. [facility] CANNABINOID CONF, URon 01-03 Cannabinoids Confirm (U) [Mass/Vol] 153 ng/mL High <16 [facility] Comment on above: Order Comment: Speci men Type: URINE SPECIMENOrdering Facility: [facility] Address: [address] [place] [address] Result Comment: Tetr ahydrocannabinol carboxylic acid (THCA) is a metabolite of fjznf-5-bbeitconqaumulhwzkxt which is the main active component of marijuana. Presence of THCA indicates use of marijuana. Performed By: #### C ANNCONFU ####[facility] [id number] [address] [place] NOTE ([facility]) Normal [facility] Comment on above: Order Comment: Speci men Type: URINE SPECIMENOrdering Facility: [facility] Address: [address] [place] [address] Result Comment: This test is for medical use only. This test was developed and its performance characteristics determined by [facility]'s Rahul Schaefer [facility] [place] ([facility]). It has not been cleared or approved by the FDA. -[facility] is regulated under CLIA as qualified to perform high-complexity testing. This test is used for clinical purposes. It should not be regarded as investigational or for research. Performed By: #### C ANNCONFU ####[facility] [id number] [address] [place] CNOVon 01-04-2024 CNOV Office Visit (FPNRMO C) -------- SHAZIA CHOU ([id number]) 1990 F Date Time Provider Department 01/04/24 9:20 AM ELIA BAIRES [facility] [place] [facility] During your visit today, we recorded the following information about you: Pulse Blood pressure Weight Height 92/minute 123/86 92.5 kg 1.702 m Gilda Baireskeshav Cardenas, 01/04/2024 2:25 PM Signed ASSESSMENT/PLAN: 1. Panic [...] She says that she is originally from [place] however came up to here today to [...] to establish with a new psychiatrist at [facility] in [place]. She also sees a counselor weekly. Current [...] in 1 (more content not included)... Normal [facility] SPECIMEN VALIDITY, URINEon 0 01-04-2024 CHROMATE,URINE <10 Normal <50 [facility] Comment on above: Order Comment: Speci men Type: URINE SPECIMENOrdering Facility: [facility] Address: [address] [place] [address] Performed By: #### L [id number] ####[facility] LABCLIA [id number] [place] [address] [place] CREATININE,URINE 33.7 mg/dL Normal 20.0-300.0 [facility] Comment on above: Order Comment: Speci men Type: URINE SPECIMENOrdering Facility: [facility] Address: [address] [place] [address] Performed By: #### L [id number] ####[facility] LABCLIA [id number] [place] [address] [place] NITRITES,URINE <50 Normal <500 [facility] Comment on above: Order Comment: Speci men Type: URINE SPECIMENOrdering Facility: [facility] Address: [address] [place] [address] Performed By: #### L [id number] ####[facility] LABCLIA [id number] [place] [address] [place] OXIDANTS,URINE 70 mg/L Normal <200 [facility] Comment on above: Order Comment: Speci men Type: URINE SPECIMENOrdering Facility: [facility] Address: [address] [place] [address] Performed By: #### L [id number] ####[facility] LABCLIA [id number] [place] [address] [place] pH (U) 5.6 [pH] Normal 4.5-8.0 [facility] Comment on above: Order Comment: Speci men Type: URINE SPECIMENOrdering Facility: [facility] Address: [address] [place] [address] Performed By: #### L [id number] ####[facility] LABCLIA [id number] [place] [address] [place] SPEC GRAVITY,UR 1.019 Normal 1.003-1.035 [facility] Comment on above: Order Comment: Speci men Type: URINE SPECIMENOrdering Facility: [facility] Address: [address] [place] [address] Performed By: #### L [id number] ####[facility] [id number] [place] [address] [place] SPECIMEN VALIDITY QUALITY Specimen quality results within acceptable limits Normal [facility] Comment on above: Order Comment: Speci men Type: URINE SPECIMENOrdering Facility: [facility] Address: [address] [place] [address] Performed By: #### L [id number] ####[facility] [id number] [place] [address] [place] TOXICOLOGY SCRN W/CONF,URINE on 01-04-2024 Amphetamines Confirm (U) [Mass/Vol] Negative Normal Negative [facility] Comment on above: Order Comment: Speci men Type: URINE SPECIMENOrdering Facility: [facility] Address: [address] [place] [address] Result Comment: Cuto ff threshold at 1000 ng/mL. Performed By: #### U TOXRF ####[facility]IA [id number] [id number] [address] [place] BARBITURATES, URINE Negative Normal Negative [facility] Comment on above: Order Comment: Speci men Type: URINE SPECIMENOrdering Facility: [facility] Address: [address] [place] [address] Result Comment: Cuto ff threshold at 200 ng/mL. Performed By: #### U TOXRF ####[facility] LABCLIA [id number] [place] [address] [place] BENZODIAZEPINES, UR Negative Normal Negative [facility] Comment on above: Order Comment: Speci men Type: URINE SPECIMENOrdering Facility: [facility] Address: [address] [place] [address] Result Comment: Cuto ff threshold at 200 ng/mL. Performed By: #### U TOXRF ####[facility] LABCLIA [id number] [place] [address] [place] Cannabinoids Screen Ql (U) Sent for confirmation Abnormal Negative [facility] Comment on above: Order Comment: Speci men Type: URINE SPECIMENOrdering Facility: [facility] Address: [address] [place] [address] Result Comment: Cuto ff threshold at 50 ng/mL. Performed By: #### U TOXRF ####[facility] LABCLIA [id number] [place] [address] [place] Cocaine Ql (U) Negative Normal Negative [facility] Comment on above: Order Comment: Speci men Type: URINE SPECIMENOrdering Facility: [facility] Address: [address] [place] [address] Result Comment: Cuto ff threshold at 300 ng/mL. Performed By: #### U TOXRF ####[facility] LABCLIA [id number] [place] [address] [place] Ethanol (U) [Mass/Vol] <11 Normal <11 [facility] Comment on above: Order Comment: Speci men Type: URINE SPECIMENOrdering Facility: [facility] Address: [address] [place] [address] Performed By: #### U TOXRF ####[facility] [id number] [place] [address] [place] Opiates Screen Ql (U) Negative Normal Negative [facility] Comment on above: Order Comment: Speci men Type: URINE SPECIMENOrdering Facility: [facility] Address: [address] [place] [address] Result Comment: Cuto ff threshold at 300 ng/mL. Performed By: #### U TOXRF ####[facility] [id number] [place] [address] [place] oxyCODONE cutoff Screen (U) [Mass/Vol] Negative Normal Negative [facility] Comment on above: Order Comment: Speci men Type: URINE SPECIMENOrdering Facility: [facility] Address: [address] [place] [address] Result Comment: Cuto ff threshold at 100 ng/mL. Performed By: #### U TOXRF ####[facility] [id number] [place] [address] [place] Phencyclidine Ql (U) Negative Normal Negative [facility] Comment on above: Order Comment: Speci men Type: URINE SPECIMENOrdering Facility: [facility] Address: [address] [place] [address] Result Comment: Cuto ff threshold at 25 ng/mL. Performed By: #### U TOXRF ####[facility] [id number] [place] [address] [place] ECG 12 lead ECGon 12-31-2023 ECG 12 lead ECG [address] [address] Electrocardiograph Report Signed Patient: Shazia Chou MR#: [id number] : 1990 Acct:[id number] Age/Sex: 33 / F ADM Date: 12/31/23 Loc: ER Room: Type: [facility] ER Attending Dr: Ordering Provider: [...] needs review Confirmed by JULES JANSEN DO ([id number]) on 01/01/2024 6:11:00 AM Referred By: Electronically Signed By:JULES JANSEN DO Transcribed By: MUS Signed By Jules Jansen DO 12/31 0611 Normal [facility] ED Noteon 2023 ED Note [id number]#[id number] F Normal [facility] Activated partial thrombopla stin time (aPTT) in platelet poor plasma by coagulation aOrdered By: Marii Christiansen on 12-10-2023 aPTT Coag (PPP) [Time] 28.8 s 25.1-36.5 [facility] Comment on above: A hematocrit value g reater than 55% may lead to inaccurate results in coagulation testing. Patients having hematocrit values >55% require a special collection tube for coagulation studies. Please contact the laboratory at [phone] for redraw instructions. Automated basophil %Ordered By: Marii Christiansen on 12-10-2023 Basophils/100 WBC (Bld) 1.0 % Normal . [facility] Comment on above: Performed By: #### B SPOOL SALVAGER, CK, HS TROP, PT, PTT, BMP, PHOS, MG, T4F, TSH3, HCGQUAL, CBC #### [facility] [address] Automated basophil countOrde red By: Marii Christiansen on 12-10-2023 Basophils (Bld) [#/Vol] 0.1 10*3/uL Normal 0.0-0.2 [facility] Comment on above: Result Comment: PERF ORMED BY: [place] [address] PATHOLOGIST DATA ENTRY MANAGER JOHNIE BOSS M.D. Performed By: #### B SPOOL SALVAGER, CK, HS TROP, PT, PTT, BMP, PHOS, MG, T4F, TSH3, HCGQUAL, CBC #### [address] Automated blood monocyte cou ntOrdered By: Marii Christiansen on 12-10-2023 Monocytes (Bld) [#/Vol] 0.5 10*3/uL Normal 0.0-0.8 [facility] Comment on above: Performed By: #### B SPOOL SALVAGER, CK, HS TROP, PT, PTT, BMP, PHOS, MG, T4F, TSH3, HCGQUAL, CBC #### [address] Automated eosinophil %Ordere d By: Marii Christiansen on 12-10-2023 Eosinophils/100 WBC (Bld) 1.7 % Normal . [facility] Comment on above: Performed By: #### B SPOOL SALVAGER, CK, HS TROP, PT, PTT, BMP, PHOS, MG, T4F, TSH3, HCGQUAL, CBC #### [address] Automated eosinophil countOr dered By: Marii Christiansen on 12-10-2023 Eosinophils (Bld) [#/Vol] 0.1 10*3/uL Normal 0.0-0.45 [facility] Comment on above: Performed By: #### B SPOOL SALVAGER, CK, HS TROP, PT, PTT, BMP, PHOS, MG, T4F, TSH3, HCGQUAL, CBC #### [address] Automated monocyte %Ordered By: Marii Christiansen on 12-10-2023 Monocytes/100 WBC (Bld) 6.4 % Normal . [facility] Comment on above: Performed By: #### B SPOOL SALVAGER, CK, HS TROP, PT, PTT, BMP, PHOS, MG, T4F, TSH3, HCGQUAL, CBC #### [facility] [address] Automated neutrophil %Ordere d By: Marii Christiansen on 12-10-2023 Neutrophils/100 WBC (Bld) 69.0 % Normal . [facility] Comment on above: Performed By: #### B SPOOL SALVAGER, CK, HS TROP, PT, PTT, BMP, PHOS, MG, T4F, TSH3, HCGQUAL, CBC #### [address] BNP ser/plasOrdered By: Priya Christiansen on 12-10-2023 Natriuretic peptide B (Bld) [Mass/Vol] 12.0 pg/mL Normal 5-100 [facility] Comment on above: Result Comment: PERF ORMED BY: [place] [address] PATHOLOGIST DATA ENTRY MANAGER JOHNIE BOSS M.D. Performed By: #### B SPOOL SALVAGER, CK, HS TROP, PT, PTT, BMP, PHOS, MG, T4F, TSH3, HCGQUAL, CBC #### [address] Basic Metabolic Panelon 11-13 Creatinine Clr Calc Pharmacy 144.76 Normal [facility] Comment on above: Performed By: #### B SPOOL SALVAGER, CK, HS TROP, PT, PTT, BMP, PHOS, MG, T4F, TSH3, HCGQUAL, CBC ####[address] GFR/1.73 sq M.predicted MDRD (S/P/Bld) [Vol rate/Area] mL/min/{1.73_m2} Normal [facility] Comment on above: Performed By: #### B SPOOL SALVAGER, CK, HS TROP, PT, PTT, BMP, PHOS, MG, T4F, TSH3, HCGQUAL, CBC ####[facility] Calcium [Mass/volume] in Ser um or PlasmaOrdered By: Marii Christiansen on 12-10-2023 Calcium [Mass/Vol] 9.3 mg/dL Normal 8.6-10.3 [facility] Comment on above: Performed By: #### B SPOOL SALVAGER, CK, HS TROP, PT, PTT, BMP, PHOS, MG, T4F, TSH3, HCGQUAL, CBC ####[facility] Wvr[address] Carbon dioxide, total [Moles /volume] in Serum or PlasmaOrdered By: Marii Christiansen on 12-10-2023 CO2 [Moles/Vol] 26.2 mmol/L Normal 21.0-31.0 [facility] Comment on above: Performed By: #### B SPOOL SALVAGER, CK, HS TROP, PT, PTT, BMP, PHOS, MG, T4F, TSH3, HCGQUAL, CBC ####[facility] Chloride [Moles/volume] in S tushar or PlasmaOrdered By: Marii Christiansen on 12-10-2023 Chloride [Moles/Vol] 108 mmol/L High 98-107 [facility] Comment on above: Performed By: #### B SPOOL SALVAGER, CK, HS TROP, PT, PTT, BMP, PHOS, MG, T4F, TSH3, HCGQUAL, CBC ####[facility] Choriogonadotropin.beta subu nit [Units/volume] in Serum or PlasmaOrdered By: Marii Christiansen on 12-10-2023 HCG.beta subunit Qn Negative [facility] Complete Blood Count Auto Di ffon 12-10-2023 Mean Corpuscular HGB Conc 32.5 g/dL Normal 32.0-35.0 [facility] Comment on above: Performed By: #### B SPOOL SALVAGER, CK, HS TROP, PT, PTT, BMP, PHOS, MG, T4F, TSH3, HCGQUAL, CBC #### [facility] 1[address] [place] [address] [place] Monocytes/100 WBC (Bld) 16.94 % Normal 0.00-20.00 [facility] Comment on above: Performed By: #### B SPOOL SALVAGER, CK, HS TROP, PT, PTT, BMP, PHOS, MG, T4F, TSH3, HCGQUAL, CBC #### [facility] [address] NRBC% 0.1 /100{WBC} Normal 0-0.5 [facility] Comment on above: Performed By: #### B SPOOL SALVAGER, CK, HS TROP, PT, PTT, BMP, PHOS, MG, T4F, TSH3, HCGQUAL, CBC #### [address] Creatine kinase [Enzymatic a ctivity/volume] in Serum or PlasmaOrdered By: Marii Christiansen on 12-10-2023 CK [Catalytic activity/Vol] 90 U/L Normal 30-223 [facility] Comment on above: Performed By: #### B SPOOL SALVAGER, CK, HS TROP, PT, PTT, BMP, PHOS, MG, T4F, TSH3, HCGQUAL, CBC ####[place] [address] [address] Creatinine [Mass/volume] in Serum or PlasmaOrdered By: Marii Christiansen on 12-10-2023 Creatinine [Mass/Vol] 0.63 mg/dL Normal 0.60-1.20 [facility] Comment on above: Performed By: #### B SPOOL SALVAGER, CK, HS TROP, PT, PTT, BMP, PHOS, MG, T4F, TSH3, HCGQUAL, CBC ####[facility] ECG 12 lead ECGon 12-10-2023 ECG 12 lead ECG [facility] [place] [address] [place] [address] Electrocardiograph Report Signed Patient: Shazia Chou MR#: [id number] : 1990 Acct:[id number] Age/Sex: 32 / F ADM Date: 12/10/23 Loc: ER Room: Type: [facility] ER Attending Dr: Ordering Provider: [...] sinus rhythm Confirmed by Jaylon YANES DO ([id number]) on 12/10/2023 3:20:27 PM Referred By: Electronically Signed By:Jaylon YANES DO Transcribed By: MUS Signed By Jaylon Yanes DO 0 12/10/23 1520 Normal [facility] Erythrocyte distribution wid th [Ratio] by Automated countOrdered By: Marii Christiansen on 12-10-2023 Erythrocyte distribution width (RBC) [Ratio] 18.2 % High 11.9-15.3 [facility] Comment on above: Performed By: #### B SPOOL SALVAGER, CK, HS TROP, PT, PTT, BMP, PHOS, MG, T4F, TSH3, HCGQUAL, CBC #### [facility] [address] Erythrocytes [#/volume] in B lood by Automated countOrdered By: Marii Christiansen on 12-10-2023 RBC (Bld) [#/Vol] 3.88 10*6/uL Normal 3.60-5.00 [facility] Comment on above: Performed By: #### B SPOOL SALVAGER, CK, HS TROP, PT, PTT, BMP, PHOS, MG, T4F, TSH3, HCGQUAL, CBC #### [facility] [address] [place] [id number] [facility] Glucose [Mass/volume] in Ser um or PlasmaOrdered By: Marii Christiansen on 12-10-2023 Glucose [Mass/Vol] 84 mg/dL Normal 70-100 [facility] Comment on above: ADA recommended refe rence rangeRandom Glucose Reference Range is dependent on time and content of last meal. Glucose of more than 200 mg/dL in a nonstressed, ambulatory subject supports the diagnosis of Diabetes Mellitus. Result Comment: Clune om Glucose Reference Range is dependent on time and content of last meal. Glucose of more than 200 mg/dL in a nonstressed, ambulatory subject supports the diagnosis of Diabetes Mellitus. ADA recommended reference range Performed By: #### B SPOOL SALVAGER, CK, HS TROP, PT, PTT, BMP, PHOS, MG, T4F, TSH3, HCGQUAL, CBC ####[place] [id number] [address] HCG,Qualitative Serumon 11-13 HCG,Qualitative Serum Negative Normal [facility] Comment on above: Result Comment: PERF ORMED BY: [place] [address] PATHOLOGIST DATA ENTRY MANAGER JOHNIE BOSS M.D. Performed By: #### B SPOOL SALVAGER, CK, HS TROP, PT, PTT, BMP, PHOS, MG, T4F, TSH3, HCGQUAL, CBC ####[address] Hematocrit [Volume Fraction] of Blood by Automated countOrdered By: Marii Christiansen on 12-10-2023 Hematocrit (Bld) [Volume fraction] 34.4 % Normal 34.0-46.4 [facility] Comment on above: Performed By: #### B SPOOL SALVAGER, CK, HS TROP, PT, PTT, BMP, PHOS, MG, T4F, TSH3, HCGQUAL, CBC #### [facility] [address] [place] [address] Hemoglobin [Mass/volume] in BloodOrdered By: Marii Christiansen on 12-10-2023 Hemoglobin (Bld) [Mass/Vol] 11.2 g/dL Low 11.8-15.4 [facility] Comment on above: Performed By: #### B SPOOL SALVAGER, CK, HS TROP, PT, PTT, BMP, PHOS, MG, T4F, TSH3, HCGQUAL, CBC #### [facility] [address] [place] [address] INR in Platelet poor plasma by Coagulation assayOrdered By: Marii Christiansen on 12-10-2023 INR Coag (PPP) [Relative time] 1.0 {INR} Normal [facility] Comment on above: INR Therapeutic Rang e [...] 3 - 4.5 Performed By: #### B SPOOL SALVAGER, CK, HS TROP, PT, PTT, BMP, PHOS, MG, T4F, TSH3, HCGQUAL, CBC ####[facility] Cul0281 [address] Leukocytes [#/volume] correc caitlin for nucleated erythrocytes in Blood by Automated counOrdered By: Marii Christiansen on 12-10-2023 WBC corrected for nucl RBC Auto (Bld) [#/Vol] 7.1 10*3/uL 3.8-11.6 [facility] Leukocytes [#/volume] in Blo od by Automated countOrdered By: Marii Christiansen on 12-10-2023 WBC (Bld) [#/Vol] 7.1 10*3/uL Normal 3.8-11.6 [facility] Comment on above: Performed By: #### B SPOOL SALVAGER, CK, HS TROP, PT, PTT, BMP, PHOS, MG, T4F, TSH3, HCGQUAL, CBC #### [facility] [address] Lymphocytes [#/volume] in Bl ood by Automated countOrdered By: Marii Christiansen on 12-10-2023 Lymphocytes (Bld) [#/Vol] 1.6 10*3/uL Normal 1.00-4.8 [facility] Comment on above: Performed By: #### B SPOOL SALVAGER, CK, HS TROP, PT, PTT, BMP, PHOS, MG, T4F, TSH3, HCGQUAL, CBC #### [facility] [address] [place] [address] [place] Lymphocytes/100 leukocytes i n Blood by Automated countOrdered By: Marii Christiansen on 12-10-2023 Lymphocytes/100 WBC (Bld) 21.9 % Normal . [facility] Comment on above: Performed By: #### B SPOOL SALVAGER, CK, HS TROP, PT, PTT, BMP, PHOS, MG, T4F, TSH3, HCGQUAL, CBC #### [facility] [address] MCH [Entitic mass] by Automa caitlin countOrdered By: Marii Christiansen on 12-10-2023 MCH (RBC) [Entitic mass] 28.8 pg Normal 24.7-34.3 [facility] Comment on above: Performed By: #### B SPOOL SALVAGER, CK, HS TROP, PT, PTT, BMP, PHOS, MG, T4F, TSH3, HCGQUAL, CBC #### [facility] [address] MCHC Auto (RBC) [Mass/Vol]Or dered By: Marii Christiansen on 12-10-2023 MCHC (RBC) [Mass/Vol] 32.5 g/dL 32.0-35.0 [facility] MCV [Entitic volume] by Auto mated countOrdered By: Marii Christiansen on 12-10-2023 MCV (RBC) [Entitic vol] 88.7 fL Normal 80-100 [facility] Comment on above: Performed By: #### B SPOOL SALVAGER, CK, HS TROP, PT, PTT, BMP, PHOS, MG, T4F, TSH3, HCGQUAL, CBC #### [facility] [address] Magnesium [Mass/volume] in S tushar or PlasmaOrdered By: Marii Christiansen on 12-10-2023 Magnesium [Mass/Vol] 1.9 mg/dL Normal 1.9-2.7 [facility] Comment on above: Performed By: #### B SPOOL SALVAGER, CK, HS TROP, PT, PTT, BMP, PHOS, MG, T4F, TSH3, HCGQUAL, CBC ####[facility] [place] [address] [place] Monocyte distribution width [Entitic volume] in Blood by AutomatedOrdered By: Marii Christiansen on 12-10-2023 Monocyte distribution width Auto (Bld) [Entitic vol] 16.94 % 0.00-20.00 [facility] Neutrophils [#/volume] in Bl ood by Automated countOrdered By: Marii Christiansen on 12-10-2023 Neutrophils (Bld) [#/Vol] 4.9 10*3/uL Normal 1.8-7.7 [facility] Comment on above: Performed By: #### B SPOOL SALVAGER, CK, HS TROP, PT, PTT, BMP, PHOS, MG, T4F, TSH3, HCGQUAL, CBC #### [facility] [address] No Panel InformationOrdered By: Marii Christiansen on 12-10-2023 Estimated GFR (CKD-EPI) > 60.0 mL/Min [facility] Creatinine Clearance (Chem 144.76 [facility] Nucleated erythrocytes [Pres ence] in Blood by Automated countOrdered By: Marii Christiansen on 12-10-2023 Nucleated RBC Auto Ql (Bld) 0.1 /100{WBC} 0-0.5 [facility] Partial Thromboplastin Timeo n 12-10-2023 aPTT Coag (Bld) [Time] 28.8 s Normal 25.1-36.5 [facility] Comment on above: Result Comment: A he matocrit value greater than 55% may lead to inaccurate results in coagulation testing. Patients having hematocrit values >55% require a special collection tube for coagulation studies. Please contact the laboratory at [phone] for redraw instructions. PERFORMED BY: [facility] [address] [place] [address] PATHOLOGIST DATA ENTRY MANAGER JOHNIE BOSS M.D. Performed By: #### B SPOOL SALVAGER, CK, HS TROP, PT, PTT, BMP, PHOS, MG, T4F, TSH3, HCGQUAL, CBC ####[facility] Jex[address] [place] [address] [place] Phosphate [Mass/volume] in S tushar or PlasmaOrdered By: Marii Christiansen on 03-28-2024 Phosphate [Mass/Vol] 3.7 mg/dL Normal 2.5-4.5 [facility] Comment on above: Performed By: #### B SPOOL SALVAGER, CK, HS TROP, PT, PTT, BMP, PHOS, MG, T4F, TSH3, HCGQUAL, CBC ####[facility] Jvq[address] Platelet mean volume [Entiti c volume] in Blood by Automated countOrdered By: Marii Christiansen on 12-10-2023 Platelet mean volume (Bld) [Entitic vol] 9.2 fL Normal 6.3-10.7 [facility] Comment on above: Performed By: #### B SPOOL SALVAGER, CK, HS TROP, PT, PTT, BMP, PHOS, MG, T4F, TSH3, HCGQUAL, CBC #### [facility] [address] Platelets [#/volume] in Bloo d by Automated countOrdered By: Marii Christiansen on 12-10-2023 Platelets (Bld) [#/Vol] 331 10*3/uL Normal 150-450 [facility] Comment on above: Performed By: #### B SPOOL SALVAGER, CK, HS TROP, PT, PTT, BMP, PHOS, MG, T4F, TSH3, HCGQUAL, CBC #### [facility] [address] Potassium [Moles/volume] in Serum or PlasmaOrdered By: Marii Christiansen on 12-10-2023 Potassium [Moles/Vol] 4.0 mmol/L Normal 3.5-5.1 [facility] Comment on above: Performed By: #### B SPOOL SALVAGER, CK, HS TROP, PT, PTT, BMP, PHOS, MG, T4F, TSH3, HCGQUAL, CBC ####[facility] Prothrombin time (PT)Ordered By: Marii Christiansen on 12-10-2023 PT Coag (PPP) [Time] 11.3 s Normal 9.0-12.9 [facility] Comment on above: A hematocrit value g reater than 55% may lead to inaccurate results in coagulation testing. Patients having hematocrit values >55% require a special collection tube for coagulation studies. Please contact the laboratory at [phone] for redraw instructions. Result Comment: A he matocrit value greater than 55% may lead to inaccurate results in coagulation testing. Patients having hematocrit values >55% require a special collection tube for coagulation studies. Please contact the laboratory at [phone] for redraw instructions. Performed By: #### B SPOOL SALVAGER, CK, HS TROP, PT, PTT, BMP, PHOS, MG, T4F, TSH3, HCGQUAL, CBC ####[address] Serum or plasma anion gap de terminationOrdered By: Marii Christiansen on 12-10-2023 Anion gap [Moles/Vol] 9.8 mmol/L Normal 6.0-15.0 [facility] Comment on above: Performed By: #### B SPOOL SALVAGER, CK, HS TROP, PT, PTT, BMP, PHOS, MG, T4F, TSH3, HCGQUAL, CBC ####[address] Sodium [Moles/volume] in Ser um or PlasmaOrdered By: Marii Christiansen on 12-10-2023 Sodium [Moles/Vol] 140 mmol/L Normal 136-145 [facility] Comment on above: Performed By: #### B SPOOL SALVAGER, CK, HS TROP, PT, PTT, BMP, PHOS, MG, T4F, TSH3, HCGQUAL, CBC ####[address] Thyrotropin [Units/volume] i n Serum or PlasmaOrdered By: Marii Christiansen on 12-10-2023 TSH Qn 0.61 m[IU]/L Normal 0.45-5.33 [facility] Comment on above: Performed By: #### B SPOOL SALVAGER, CK, HS TROP, PT, PTT, BMP, PHOS, MG, T4F, TSH3, HCGQUAL, CBC ####[address] Thyroxine (T4) free [Mass/vo lume] in Serum or PlasmaOrdered By: Marii Christiansen on 12-10-2023 Free T4 [Mass/Vol] 0.82 ng/dL Normal 0.61-1.12 [facility] Comment on above: Performed By: #### B SPOOL SALVAGER, CK, HS TROP, PT, PTT, BMP, PHOS, MG, T4F, TSH3, HCGQUAL, CBC ####[place] [address] [place] [id number] [facility] Troponin I High Sensitivityo n 12-10-2023 Troponin I High Sensitivity < 2.3 Normal 0.0-15.0 [facility] Comment on above: Result Comment: PERF ORMED BY: [place] [address] PATHOLOGIST DATA ENTRY MANAGER JOHNIE BOSS M.D. Performed By: #### B SPOOL SALVAGER, CK, HS TROP, PT, PTT, BMP, PHOS, MG, T4F, TSH3, HCGQUAL, CBC ####[place] [id number] [facility] Troponin I.cardiac [Mass/vol ume] in Serum or Plasma by Detection limit <= 0.01 ng/Ordered By: Marii Christiansen on 12-10-2023 Troponin I.cardiac DL <= 0.01 ng/mL [Mass/Vol] < 2.3 pg/mL 0.0-15.0 [facility] Urea nitrogen [Mass/volume] in Serum or PlasmaOrdered By: Marii Christiansen on 12-10-2023 Urea nitrogen [Mass/Vol] 14 mg/dL Normal 7-25 [facility] Comment on above: Performed By: #### B SPOOL SALVAGER, CK, HS TROP, PT, PTT, BMP, PHOS, MG, T4F, TSH3, HCGQUAL, CBC ####[place] [id number] [facility] XR chest 2V*on 12-10-2023 XR chest 2V* [facility] [place] [address] [place] [address] XRay Report Signed Patient: Shazia Chou MR#: [id number] : 1990 Acct:[id number] Age/Sex: 32 / F ADM Date: 12/10/23 Loc: ER Room: Type: [facility] ER Attending Dr: Copies to: Marii [...] Gaye Peraza M.D.12/10/2023 2:29 PM Dictation Location: [place] [address] Transcribed By: [facility] 12/10/23 1429 Dictated By: Gaye Peraza MD 12/10/231427 Signed By: 12/10/23 142 Normal [facility] Consent for Treatmenton 11-13 Consent for Treatment [id number] F Normal [facility] [place] Mamm Diag w/CAD if perf a [...] very important to your health. The current [place] [employer] and National Comprehensive Cancer Network guidelines recommends annual mammography beginning at age 40. This facility utilizes a reminder system to ensure all patients receive reminder notifications at the appropriate time based on the recommendations of this exam. Board Certified Radiologists. Accredited by the ACR and FDA. Ordering Provider: Jennie Durand FINAL REPORT Dictated: 12/09/2023 4:27 pm Mychal Cabezas M.D. Signed (Electronic Signature): 12/09/2023 4:27 pm Signed by: Mychal Cabezas M.D. Transcribed by: MARCO Technologist: ANABEL Assessment: BI-RADS Category 1-Negative Recommendation: Normal interval follow-up Normal [facility] US Breast Unilateral Lt Comp leteon 12-09-2023 US Breast Unilateral Lt Complete Exam Date/Time: 12/09/2023 10:07 EDT Reason for Exam: N63.21 Report PLEASE REFER TO THE MAMMOGRAM REPORT. Ordering Provider: Jennie Durand FINAL REPORT Dictated: 12/09/2023 4:28 pm Mychal Cabezas M.D. Signed (Electronic Signature): 12/09/2023 4:28 pm Signed by: Mychal Cabezas M.D. Transcribed by: MARCO Technologist: KYLE Normal [facility] Physician Orderon 12-08-2023 Physician Order [id number] FF Normal [facility] CT ABDOMEN PELVIS W IV CONTR Melba [...] Jacob Dillon DO 10/25/23 Final result Normal [facility] CBC panel Auto (Bld)on 08-31 Erythrocyte distribution width (RBC) [Ratio] 14.7 % Normal 11.5-15.0 [facility] Comment on above: Order Comment: Speci men Type: BLOOD SPECIMEN Ordering Facility: [facility] Address: [address] [place] [address] Performed By: #### 5 8410-2 #### [facility] CLIA [id number] [address] [place] [address] OF [facility] Hematocrit (Bld) [Volume fraction] 36.9 % Normal 36.0-46.0 [facility] Comment on above: Order Comment: Speci men Type: BLOOD SPECIMEN Ordering Facility: [facility] Address: [address] [place] [address] Performed By: #### 5 8410-2 #### [facility] CLIA [id number] [address] [place] [address] [place] Hemoglobin (Bld) [Mass/Vol] 11.7 g/dL Normal 11.5-15.5 [facility] Comment on above: Order Comment: Speci men Type: BLOOD SPECIMEN Ordering Facility: [facility] Address: [address] [place] [address] Performed By: #### 5 8410-2 #### [facility] CLIA [id number] [address] [place] [address] [place] MCH (RBC) [Entitic mass] 29.8 pg Normal 26.0-34.0 [facility] Comment on above: Order Comment: Speci men Type: BLOOD SPECIMEN Ordering Facility: [facility] Address: [address] [place] [address] Performed By: #### 5 8410-2 #### [facility] CLIA [id number] [address] [place] [address] [place] MCHC (RBC) [Mass/Vol] 31.7 g/dL Normal 30.5-36.0 [facility] Comment on above: Order Comment: Speci men Type: BLOOD SPECIMEN Ordering Facility: [facility] Address: [address] [place] [address] Performed By: #### 5 8410-2 #### [facility] CLIA [id number] [address] [place] [address] [place] MCV (RBC) [Entitic vol] 93.9 fL Normal 80.0-100.0 [facility] Comment on above: Order Comment: Speci men Type: BLOOD SPECIMEN Ordering Facility: [facility] Address: [address] [place] [address] Performed By: #### 5 8410-2 #### [facility] CLIA [id number] [address] [place] [address] [place] Nucleated RBC (Bld) [#/Vol] 10*3/uL Normal <0.01 [facility] Comment on above: Order Comment: Speci men Type: BLOOD SPECIMEN Ordering Facility: [facility] Address: [address] [place] [address] Performed By: #### 5 8410-2 #### [facility] CLIA [id number] [address] [place] [address] [place] Platelet mean volume (Bld) [Entitic vol] 11.1 fL Normal 9.0-12.7 [facility] Comment on above: Order Comment: Speci men Type: BLOOD SPECIMEN Ordering Facility: [facility] Address: [address] [place] [address] Performed By: #### 5 8410-2 #### [facility] CLIA [id number] [address] [place] [address] [place] Platelets (Bld) [#/Vol] 297 10*3/uL Normal 150-400 [facility] Comment on above: Order Comment: Speci men Type: BLOOD SPECIMEN Ordering Facility: [facility] Address: [address] [place] [address] Performed By: #### 5 8410-2 #### [facility] CLIA [id number] [address] [place] [address] [place] RBC (Bld) [#/Vol] 3.93 10*6/uL Normal 3.90-5.20 [facility] Comment on above: Order Comment: Speci men Type: BLOOD SPECIMEN Ordering Facility: [facility] Address: [address] [place] [address] Performed By: #### 5 8410-2 #### [facility] CLIA [id number] [address] [place] [address] [place] WBC (Bld) [#/Vol] 6.82 10*3/uL Normal 3.70-11.00 [facility] Comment on above: Order Comment: Speci men Type: BLOOD SPECIMEN Ordering Facility: [facility] Address: [facility] [address] Performed By: #### 5 8410-2 #### [facility] CLIA [id number] [address] [place] [address] [place] CNOVon 08-31-2023 CNOV Office Visit ([id number] ) -------- SHAZIA CHOU ([id number]) 1990 F Date Time Provider Department 08/31/23 11:00 AM LEONELA AGUIRRE [id number] During your visit today, we recorded the following information about you: Temperature Pulse Blood pressure Weight 97.9 degrees 78/minute 123/88 89.4 kg Height 1.702 m [place], [place] 08/31/2023 11:14 AM Signed What is [...] diarrhea Wound: Temperature: No Drains: No Leonela Aguirre MD 08/31/2023 3:01 PM Signed New Patient [...] Take 40 mg by mouth once daily. jdccnvxfmlqs-xyk-wgyy-FA -vit K (BARIATRIC MULTIVITAMINS) 45 mg iron- [...] measure: Med (more content not included)... Normal [facility] Comprehensive metabolic 2000 panelon 08-31-2023 Albumin [Mass/Vol] 4.4 g/dL Normal 3.9-4.9 [facility] Comment on above: Order Comment: Philip [place] Type: BLOOD SPECIMEN Ordering Facility: [facility] Address: [address] [place] [address] Performed By: #### L SONALI, 13227-8 #### [facility] CLIA [id number] [address] [place] [address] [place] ALP [Catalytic activity/Vol] 75 U/L Normal 34-123 [facility] Comment on above: Order Comment: Philip [place] Type: BLOOD SPECIMEN Ordering Facility: [facility] Address: [address] [place] [address] Performed By: #### L SONALI, 57822-4 #### [facility] CLIA [id number] [address] [place] [address] [place] ALT [Catalytic activity/Vol] 16 U/L Normal 7-38 [facility] Comment on above: Order Comment: Speci men Type: BLOOD SPECIMEN Ordering Facility: [facility] Address: [address] [place] [address] Performed By: #### L IPNF, #### [facility] CLIA [id number] [address] [place] [address] [place] Anion gap [Moles/Vol] 11 mmol/L Normal 9-18 [facility] Comment on above: Order Comment: Speci men Type: BLOOD SPECIMEN Ordering Facility: [facility] Address: [address] [place] [address] Performed By: #### L IPNF, #### [facility] CLIA [id number] [address] [place] [address] [place] AST [Catalytic activity/Vol] 21 U/L Normal 13-35 [facility] Comment on above: Order Comment: Speci men Type: BLOOD SPECIMEN Ordering Facility: [facility] Address: [address] [place] [address] Performed By: #### L IPNF, #### [facility] CLIA [id number] [address] [place] [address] [place] Bilirubin [Mass/Vol] 0.2 mg/dL Normal 0.2-1.3 [facility] Comment on above: Order Comment: Speci men Type: BLOOD SPECIMEN Ordering Facility: [facility] Address: [address] [place] [address] Performed By: #### L IPNF, #### [facility] CLIA [id number] [address] [place] [address] [place] Calcium [Mass/Vol] 9.7 mg/dL Normal 8.5-10.2 [facility] Comment on above: Order Comment: Speci men Type: BLOOD SPECIMEN Ordering Facility: [facility] Address: [address] [place] [address] Performed By: #### L IPNF, #### [facility] CLIA [id number] [address] [place] [address] [place] Chloride [Moles/Vol] 106 mmol/L High 97-105 [facility] Comment on above: Order Comment: Speci men Type: BLOOD SPECIMEN Ordering Facility: [facility] Address: [address] [place] [address] Performed By: #### L IPNF, #### [facility] CLIA [id number] [address] [place] [address] [place] CO2 [Moles/Vol] 25 mmol/L Normal 22-30 [facility] Comment on above: Order Comment: Speci men Type: BLOOD SPECIMEN Ordering Facility[facility] Address: [address] [place] [address] Performed By: #### L IPNF, #### [facility] CLIA [id number] [address] [place] [address] [place] Creatinine [Mass/Vol] 0.55 mg/dL Low 0.58-0.96 [facility] Comment on above: Order Comment: Speci men Type: BLOOD SPECIMEN Ordering Facility: [facility] Address: [address] [place] [address] Performed By: #### L IPNF, #### [facility] CLIA [id number] [address] [place] [address] [place] Creatinine and Glomerular filtration rate.predicted panel (S/P/Bld) 124 mL/min/1.73m??? Normal >=60 [facility] Comment on above: Order Comment: Speci men Type: BLOOD SPECIMEN Ordering Facility: [facility] Address: [address] [place] [address] Result Comment: Brenda mated Glomerular Filtration Rate [...] GFR. Performed By: #### L IPNF, #### [facility] CLIA [id number] [address] [place] [address] [place] Glucose [Mass/Vol] 93 mg/dL Normal 74-99 [facility] Comment on above: Order Comment: Philip birmingham Type: BLOOD SPECIMEN Ordering Facility: [facility] Address: [address] [place] [address] Result Comment: The [place] Diabetes Association (ADA) provides guidance for cutoff [...] Standards of Medical Care in Diabetes 2016, [place] Diabetes Association. Diabetes Care. 2016.39(Suppl 1). Performed By: #### L IPNF, 72712-1 #### [facility] CLIA [id number] [address] [place] [address] [place] Potassium [Moles/Vol] 4.7 mmol/L Normal 3.7-5.1 [facility] Comment on above: Order Comment: Philip b[place] Type: BLOOD SPECIMEN Ordering Facility: [facility] Address: [address] [place] [address] Performed By: #### L IPNF, 74795-1 #### [facility] CLIA [id number] [address] [place] [address] [place] Protein [Mass/Vol] 7.3 g/dL Normal 6.3-8.0 [facility] Comment on above: Order Comment: Philip [place] Type: BLOOD SPECIMEN Ordering Facility: [facility] Address: [address] [place] [address] Performed By: #### L IPNF, 59812-1 #### [facility] CLIA [id number] [address] [place] [address] [place] Sodium [Moles/Vol] 142 mmol/L Normal 136-144 [facility] Comment on above: Order Comment: Philip birmingham Type: BLOOD SPECIMEN Ordering Facility: [facility] Address: [address] [place] [address] Performed By: #### L IPNF, 72043-3 #### [facility] CLIA [id number] [address] STATES OF [facility] Urea nitrogen [Mass/Vol] 9 mg/dL Normal 7-21 [facility] Comment on above: Order Comment: Specarielle birmingham Type: BLOOD SPECIMEN Ordering Facility: [facility] Address: [address] [place] [address] Performed By: #### L IPNF, 44638-9 #### [facility] CLIA [id number] [address] [place] HISTORY PHYSICALon HISTORY PHYSICAL HNO ID: [id number] Author: Leonela Aguirre MD Service: ? Author Type: Physician Type: [...] Take 40 mg by mouth once daily. pkkpedblcbly-hmf-ifar-FA -vit K (BARIATRIC MULTIVITAMINS) 45 mg iron- [...] or problem (more content not included)... Normal [facility] LIPID PANEL, NONFASTINGon Cholesterol [Mass/Vol] 154 mg/dL Normal <200 [facility] Comment on above: Order Comment: Philip birmingham Type: BLOOD SPECIMEN Ordering Facility: [facility] Address: [address] [place] [address] Result Comment: <200 mg/dL, Desirable 200-239 mg/dL, Borderline high >239 mg/dL, High Performed By: #### L IPNF, 95269-1 #### [facility] CLIA [id number] [address] [place] [address] OF [facility] HDL CHOLESTEROL, NF 69 mg/dL Normal >39 [facility] Comment on above: Order Comment: Philip [place] Type: BLOOD SPECIMEN Ordering Facility: [facility] Address: [address] [place] [address] Result Comment: 40-5 9 mg/dL, Acceptable >59 mg/dL, High: Negative risk factor for coronary heart disease <40 mg/dL, Low: Positive risk factor for coronary heart disease Performed By: #### L IPNF, 16189-6 #### [facility] CLIA [id number] [address] [place] [address] [place] OF [facility] LDL CHOLESTEROL, NF 66 mg/dL Normal <100 [facility] Comment on above: Order Comment: Philip [place] Type: BLOOD SPECIMEN Ordering Facility: [facility] Address: [address] [place] [address] Result Comment: <100 mg/dL, Optimal 100-129 mg/dL, Near optimal/above optimal 130-159 mg/dL, Borderline high 160-189 mg/dL, High >189 mg/dL, Very high Secondary prevention optimal LDL Cholesterol levels are recommended to be < 70 mg/dL Performed By: #### L IPNF, 34103-8 #### [facility] CLIA [id number] [address] [place] [address] LDL/HDL RATIO, NF 0.96 mg/dL Normal <2.54 [facility] Comment on above: Order Comment: Philip birmingham Type: BLOOD SPECIMEN Ordering Facility: [facility] Address: [address] [place] [address] Result Comment: Eric kasper: 1. National Cholesterol Education Program ATP III Guideline At-A-Glance Quick Desk Reference: National Heart, Lung, and Blood [place]. National Institutes of Health. 2001: NIH Publication No. 01-3305. 2. An International Atherosclerosis Society position paper: global recommendations for the management of dyslipidemia: executive summary, Atherosclerosis. 2014: 232(2):410-413. Performed By: #### L IPNF, 90482-1 #### [facility] CLIA [id number] [address] [place] [address] OF [facility] NON HDL CHOL, NF 85 mg/dL Normal <130 [facility] Comment on above: Order Comment: Philip [place] Type: BLOOD SPECIMEN Ordering Facility: [facility] Address: [address] [place] [address] Result Comment: <130 mg/dL, Optimal 130-159 mg/dL, Near optimal/above optimal 160-189 mg/dL, Borderline high 190-219 mg/dL, High >219 mg/dL, Very high Secondary prevention optimal non HDL Cholesterol levels are recommended to be <100 mg/dL Performed By: #### L IPNF, 28012-8 #### [facility] CLIA [id number] [address] [place] [address] [place] T CHOL/HDL RATIO NF 2.23 mg/dL Normal <5.10 [facility] Comment on above: Order Comment: Speci men Type: BLOOD SPECIMEN Ordering Facility: [facility] Address: [address] [place] [address] Performed By: #### L IPNF, 99484-0 #### [facility] CLIA [id number] [address] [place] [address] [place] TRIGLYCERIDES, NF 96 mg/dL Normal <150 [facility] Comment on above: Order Comment: Speci men Type: BLOOD SPECIMEN Ordering Facility: [facility] Address: [address] [place] [address] Result Comment: <150 mg/dL, Normal 150-199 mg/dL, Borderline high 200-499 mg/dL, High >499 mg/dL, Very high Performed By: #### L IPNF, 75357-8 #### [facility] CLIA [id number] [address] [place] [address] [place] VLDL CHOLESTEROL, NF 19 mg/dL Normal <30 [facility] Comment on above: Order Comment: Speci men Type: BLOOD SPECIMEN Ordering Facility[facility] Address: [address] [place] [address] Performed By: #### L IPNF, 50229-0 #### [facility] CLIA [id number] [address] [place] [address] [place] PHOSPHATIDYLETHANOL (PETH)on 08-31-2023 EER PETH See Note Normal [facility] Comment on above: Order Comment: Speci men Type: BLOOD SPECIMEN Ordering Facility: [facility] Address: [address] [place] [address] Result Comment: Auth orized individuals can access the [employer] Enhanced Report using the following link: [email or web address] Performed By: #### P ETH #### [facility] CLIA [id number] [address] [place] [address] PETH 16:0/18.2 (PLPETH) 244 ng/mL Normal [facility] Comment on above: Order Comment: Speci men Type: BLOOD SPECIMEN Ordering Facility: [facility] Address: [address] [place] [address] Result Comment: Refe rence ranges are not well established. Performed By: #### P ETH #### [facility] CLIA [id number] [address] [place] [address] PETH 16:0/18:1 (POPETH) 169 ng/mL [facility] Comment on above: Order Comment: Speci men Type: BLOOD SPECIMEN Ordering Facility: [facility] Address: [address] [place] [address] Result Comment: PEth 16:0/18:1 (POPEth) Less than 10 ng/mL............Not detected Less than 20 ng/mL............Abstinence or light alcohol consumption 20 - 200 ng/mL................Moderate alcohol consumption Greater than 200 ng/mL........Heavy alcohol consumption or chronic alcohol use (Reference: Sophie Gonzalez and Crystal Helm 2018 J. Forensic Sci) Performed By: #### P ETH #### [facility] CLIA [id number] [address] [place] [address] PETH INTERPRETATION See Note Normal [facility] Comment on above: Order Comment: Speci men Type: BLOOD SPECIMEN Ordering Facility[facility] Address: [address] [place] [address] Result Comment: Phos phatidylethanol (PEth) is a [...] developed and its performance characteristics determined by [facility]. It has not been cleared or approved by the U.S. Food and Drug Administration. This test was performed in a CLIA-certified laboratory and is intended for clinical purposes. Performed By: [facility] [address] [place] [address] Photocopying Equipment Mechanic: Osmar Salcido MD, PhD CLIA Number: [id number] Performed By: #### P ETH #### [facility] CLIA [id number] [address] [place] [address] MRI ABDOMEN W WO CONTRAST MR CPon [...] Troy Bond MD 08/20/23 Final result Normal [facility] Vitamin Aon 08-16-2023 Interpretation Normal Normal [facility] Comment on above: Result Comment: (NOT E) This test was developed and its performance characteristics determined by [facility]. It has not been cleared or approved by the US Food and Drug Administration. This test was performed in a CLIA certified laboratory and is intended for clinical purposes. Performed By: [facility] [address] [place] [address] Photocopying Equipment Mechanic: Osmar Salcido MD, PhD CLIA Number: [id number] Performed By: #### P THNCA, FEBC, FERI, GLYHGB, VD25 #### [facility] [address] [place] [address] Rd Manager: Harpal Adair MD #### TYREE OLIVO1, AZN #### [facility] [address] [place] [address] Rd Manager: Patricio Zuñiga MD #### CP, MG, CDP #### [facility] [address] [place] [address] Rd Manager: Hilton Armenta MD Retinol (Vitamin A) 0.60 mg/L Normal 0.30-1.20 [facility] Comment on above: Performed By: #### P THNCA, FEBC, FERI, GLYHGB, VD25 #### [facility] [address] [place] [address] Rd Manager: Harpal Adair MD #### TYREE OLIVO1, AZN #### [facility] [address] [place], [place] [id number] Rd Manager: Patricio Zuñiga MD #### CP, MG, CDP #### [facility] [address] [place] [address] Rd Manager: Hilton Armenta MD Retinyl Palmitate <0.02 Normal 0.00-0.10 [facility] Comment on above: Performed By: #### P DENNISA, FEBC, FERI, GLYHGB, VD25 #### [address] [address] Rd Manager: Harpal Adair MD #### AGNES OLIVO, AZN #### [facility] [address] [place] [address] Rd Manager: Patricio Zuñiga MD #### ANGEL, MG, CDP #### [facility] [address] [place] [address] Rd Manager: Hilton Armenta MD Alanine aminotransferase [En zymatic activity/volume] in Serum or PlasmaOrdered By: Yoli Norris on 08-15-2023 ALT [Catalytic activity/Vol] 18 U/L Normal 7-52 [facility] Comment on above: Performed By: #### C BC, HEPATIC, BMP, LIPASE #### [facility] [address] [place] [id number] [facility] Albumin [Mass/volume] in Ser um or Plasma by Bromocresol green (BCG) dye binding methoOrdered By: Yoli Norris on 08-15-2023 Albumin BCG dye [Mass/Vol] 4.6 g/dL 3.5-5.7 [facility] Alkaline phosphatase [Enzyma tic activity/volume] in Serum or PlasmaOrdered By: Yoli Norris on 08-15-2023 ALP [Catalytic activity/Vol] 77 U/L Normal 34-104 [facility] Comment on above: Performed By: #### C BC, HEPATIC, BMP, LIPASE #### [address] Aspartate aminotransferase [ Enzymatic activity/volume] in Serum or PlasmaOrdered By: Yoli Norris on 08-15-2023 AST [Catalytic activity/Vol] 18 U/L Normal 13-39 [facility] Comment on above: Performed By: #### C BC, HEPATIC, BMP, LIPASE #### [address] Automated basophil %Ordered By: Yoli Norris on 08-15-2023 Basophils/100 WBC (Bld) 0.5 % Normal . [facility] Comment on above: Performed By: #### C BC, HEPATIC, BMP, LIPASE #### [address] Automated basophil countOrde red By: Yoli Norris on 08-15-2023 Basophils (Bld) [#/Vol] 0.1 10*3/uL Normal 0.0-0.2 [facility] Comment on above: Result Comment: PERF ORMED BY: [place] [address] PATHOLOGIST DATA ENTRY MANAGER JOHNIE BOSS M.D. Performed By: #### C BC, HEPATIC, BMP, LIPASE #### [address] Automated blood monocyte cou ntOrdered By: Yoli Norris on 08-15-2023 Monocytes (Bld) [#/Vol] 0.6 10*3/uL Normal 0.0-0.8 [facility] Comment on above: Performed By: #### C BC, HEPATIC, BMP, LIPASE #### [address] Automated eosinophil %Ordere d By: Yoli Norris on 08-15-2023 Eosinophils/100 WBC (Bld) 2.1 % Normal . [facility] Comment on above: Performed By: #### C BC, HEPATIC, BMP, LIPASE #### [address] Automated eosinophil countOr dered By: Yoli Norris on 08-15-2023 Eosinophils (Bld) [#/Vol] 0.2 10*3/uL Normal 0.0-0.45 [facility] Comment on above: Performed By: #### C BC, HEPATIC, BMP, LIPASE #### [address] Automated monocyte %Ordered By: Yoli Norris on 08-15-2023 Monocytes/100 WBC (Bld) 5.0 % Normal . [facility] Comment on above: Performed By: #### C BC, HEPATIC, BMP, LIPASE #### [address] Automated neutrophil %Ordere d By: Yoli Norris on 08-15-2023 Neutrophils/100 WBC (Bld) 74.6 % Normal . [facility] Comment on above: Performed By: #### C BC, HEPATIC, BMP, LIPASE #### [address] Automated urine color determ inationOrdered By: Yoli Norris on 08-15-2023 Color (U) Yellow Normal Yellow [facility] Comment on above: Order Comment: Name Collection Type:: Clean-Voided Midstream Performed By: #### U A, UHCG #### [address] Basic Metabolic Panelon 12-0 Creatinine Clr Calc Pharmacy 117.62 Normal [facility] Comment on above: Performed By: #### C BC, HEPATIC, BMP, LIPASE #### [address] GFR/1.73 sq M.predicted MDRD (S/P/Bld) [Vol rate/Area] mL/min/{1.73_m2} Normal [facility] Comment on above: Performed By: #### C BC, HEPATIC, BMP, LIPASE #### [address] Bilirubin Test strip Ql (U)O rdered By: Yoli Norris on 08-15-2023 Bilirubin Ql (U) Negative Negative [facility] Bilirubin.direct [Mass/volum e] in Serum or PlasmaOrdered By: Yoli Norris on 08-15-2023 Bilirubin.direct [Mass/Vol] 0.00 mg/dL 0.03-0.18 [facility] Comment on above: If the DBIL is less than 0.1, IBIL is not able to becalculated. Bilirubin.total [Mass/volume ] in Serum or PlasmaOrdered By: Yoli Norris on 08-15-2023 Bilirubin [Mass/Vol] 0.3 mg/dL Normal 0.3-1.0 [facility] Comment on above: Performed By: #### C BC, HEPATIC, BMP, LIPASE #### [address] abdomen pelvis w conon CT abdomen pelvis w con [facility] [place] [address] [place] [address] CT Scan Report Signed Patient: Shazia Chou MR#: [id number] : 1990 Acct:[id number] Age/Sex: 32 / F ADM Date: 08/15/23 Loc: ER Room: Type: [facility] ER Attending Dr: Copies to: Yoli [...] Gaye Peraza M.D.08/15/2023 1:03 PM Dictation Location: [place] [address] Transcribed By: MARKY 08/15/23 1303 Dictated By: Gaye Peraza MD 08/15/23 1256 Signed By: 08/15/23 1303 Normal [facility] Calcium [Mass/volume] in Ser um or PlasmaOrdered By: Yoli Norris on 08-15-2023 Calcium [Mass/Vol] 9.8 mg/dL Normal 8.6-10.3 [facility] Comment on above: Performed By: #### C BC, HEPATIC, BMP, LIPASE #### [facility] [address] [place] [address] Carbon dioxide, total [Moles /volume] in Serum or PlasmaOrdered By: Yoli Norris on 08-15-2023 CO2 [Moles/Vol] 21.8 mmol/L Normal 21.0-31.0 [facility] Comment on above: Performed By: #### C BC, HEPATIC, BMP, LIPASE #### [facility] [address] [place] [id number] [facility] Chloride [Moles/volume] in S tushar or PlasmaOrdered By: Yoli Norris on 08-15-2023 Chloride [Moles/Vol] 109 mmol/L High 98-107 [facility] Comment on above: Performed By: #### C BC, HEPATIC, BMP, LIPASE #### [address] Complete Blood Count Auto Di ffon 08-15-2023 Mean Corpuscular HGB Conc 32.7 g/dL Normal 32.0-35.0 [facility] Comment on above: Performed By: #### C BC, HEPATIC, BMP, LIPASE #### [address] Monocytes/100 WBC (Bld) 15.46 % Normal 0.00-20.00 [facility] Comment on above: Performed By: #### C BC, HEPATIC, BMP, LIPASE #### [address] NRBC% 0.0 /100{WBC} Normal 0-0.5 [facility] Comment on above: Performed By: #### C BC, HEPATIC, BMP, LIPASE #### [address] Creatinine [Mass/volume] in Serum or PlasmaOrdered By: Yoli Norris on 08-15-2023 Creatinine [Mass/Vol] 0.76 mg/dL Normal 0.60-1.20 [facility] Comment on above: Performed By: #### C BC, HEPATIC, BMP, LIPASE #### [address] Erythrocyte distribution wid th [Ratio] by Automated countOrdered By: Yoli Norris on 08-15-2023 Erythrocyte distribution width (RBC) [Ratio] 15.1 % Normal 11.9-15.3 [facility] Comment on above: Performed By: #### C BC, HEPATIC, BMP, LIPASE #### [address] Erythrocytes [#/volume] in B lood by Automated countOrdered By: Yoli Norris on 12-02-2023 RBC (Bld) [#/Vol] 4.03 10*6/uL Normal 3.60-5.00 [facility] Comment on above: Performed By: #### C BC, HEPATIC, BMP, LIPASE #### [facility] [address] Glucose [Mass/volume] in Ser um or PlasmaOrdered By: Yoli Norris on 08-15-2023 Glucose [Mass/Vol] 85 mg/dL Normal 70-100 [facility] Comment on above: ADA recommended refe rence rangeRandom Glucose Reference Range is dependent on time and content of last meal. Glucose of more than 200 mg/dL in a nonstressed, ambulatory subject supports the diagnosis of Diabetes Mellitus. Result Comment: Clune om Glucose Reference Range is dependent on time and content of last meal. Glucose of more than 200 mg/dL in a nonstressed, ambulatory subject supports the diagnosis of Diabetes Mellitus. ADA recommended reference range Performed By: #### C BC, HEPATIC, BMP, LIPASE #### [address] HCG ( test) IA.rapi d Ql (U)Ordered By: Yoli Norris on 08-15-2023 HCG ( test) Ql (U) Negative [facility] HCG,Urineon 08-15-2023 Beta HCG ( test) Ql (U) Negative Normal [facility] Comment on above: Order Comment: Name Collection Type:: Clean-Voided Midstream Result Comment: PERF ORMED BY: [place] [address] PATHOLOGIST DATA ENTRY MANAGER JOHNIE BOSS M.D. Performed By: #### U A, UHCG #### [address] Hematocrit [Volume Fraction] of Blood by Automated countOrdered By: Yoli Norris on 08-15-2023 Hematocrit (Bld) [Volume fraction] 37.2 % Normal 34.0-46.4 [facility] Comment on above: Performed By: #### C BC, HEPATIC, BMP, LIPASE #### [address] Hemoglobin [Mass/volume] in BloodOrdered By: Yoli Norris on 08-15-2023 Hemoglobin (Bld) [Mass/Vol] 12.2 g/dL Normal 11.8-15.4 [facility] Comment on above: Performed By: #### C BC, HEPATIC, BMP, LIPASE #### [facility] [address] Hepatic Panelon 08-15-2023 Albumin [Mass/Vol] 4.6 g/dL Normal 3.5-5.7 [facility] Comment on above: Performed By: #### C BC, HEPATIC, BMP, LIPASE #### [facility] [address] Bilirubin,Indirect 0.3 mg/dL Normal [facility] Comment on above: Performed By: #### C BC, HEPATIC, BMP, LIPASE #### [address] Bilirubin.indirect [Mass/Vol] 0.00 mg/dL Low 0.03-0.18 [facility] Comment on above: Result Comment: If t he DBIL is less than 0.1, IBIL is not able to be calculated. Performed By: #### C BC, HEPATIC, BMP, LIPASE #### [address] Ketones Auto test strip (U) [Mass/Vol]Ordered By: Yoli Norris on 08-15-2023 Ketones (U) [Mass/Vol] Negative Negative [facility] Leukocytes [#/volume] correc caitlin for nucleated erythrocytes in Blood by Automated counOrdered By: Yoli Norris on 08-15-2023 WBC corrected for nucl RBC Auto (Bld) [#/Vol] 11.3 10*3/uL 3.8-11.6 [facility] Leukocytes [#/volume] in Blo od by Automated countOrdered By: Yoli Norris on 08-15-2023 WBC (Bld) [#/Vol] 11.3 10*3/uL Normal 3.8-11.6 [facility] Comment on above: Performed By: #### C BC, HEPATIC, BMP, LIPASE #### [address] Lipase [Enzymatic activity/v olume] in Serum or PlasmaOrdered By: Yoli Norris on 08-15-2023 Lipase [Catalytic activity/Vol] 32.0 U/L Normal 11.0-82.0 [facility] Comment on above: Result Comment: PERF ORMED BY: [place] [address] PATHOLOGIST DATA ENTRY MANAGER JOHNIE BOSS M.D. Performed By: #### C BC, HEPATIC, BMP, LIPASE #### [address] Lymphocytes [#/volume] in Bl ood by Automated countOrdered By: Yoli Norris on 08-15-2023 Lymphocytes (Bld) [#/Vol] 2.0 10*3/uL Normal 1.00-4.8 [facility] Comment on above: Performed By: #### C BC, HEPATIC, BMP, LIPASE #### [address] Lymphocytes/100 leukocytes i n Blood by Automated countOrdered By: Yoli Norris on 08-15-2023 Lymphocytes/100 WBC (Bld) 17.8 % Normal . [facility] Comment on above: Performed By: #### C BC, HEPATIC, BMP, LIPASE #### [address] MCH [Entitic mass] by Automa caitlin countOrdered By: Yoli Norris on 08-15-2023 MCH (RBC) [Entitic mass] 30.2 pg Normal 24.7-34.3 [facility] Comment on above: Performed By: #### C BC, HEPATIC, BMP, LIPASE #### [address] MCHC Auto (RBC) [Mass/Vol]Or dered By: Yoli Norris on 08-15-2023 MCHC (RBC) [Mass/Vol] 32.7 g/dL 32.0-35.0 [facility] MCV [Entitic volume] by Auto mated countOrdered By: Yoli Norris on 08-15-2023 MCV (RBC) [Entitic vol] 92.4 fL Normal 80-100 [facility] Comment on above: Performed By: #### C BC, HEPATIC, BMP, LIPASE #### [facility] [address] Monocyte distribution width [Entitic volume] in Blood by AutomatedOrdered By: Yoli Norris on 08-15-2023 Monocyte distribution width Auto (Bld) [Entitic vol] 15.46 % 0.00-20.00 [facility] Neutrophils [#/volume] in Bl ood by Automated countOrdered By: Yoli Norris on 08-15-2023 Neutrophils (Bld) [#/Vol] 8.4 10*3/uL High 1.8-7.7 [facility] Comment on above: Performed By: #### C BC, HEPATIC, BMP, LIPASE #### [facility] [address] [place] [address] Nitrite Test strip Ql (U)Ord ered By: Yoli Norris on 08-15-2023 Nitrite Ql (U) Negative Negative [facility] No Panel InformationOrdered By: Yoli Norris on 08-15-2023 Estimated GFR (CKD-EPI) > 60.0 mL/Min [facility] Creatinine Clearance (Chem 117.62 [facility] Nucleated erythrocytes [Pres ence] in Blood by Automated countOrdered By: Yoli Norris on 08-15-2023 Nucleated RBC Auto Ql (Bld) 0.0 /100{WBC} 0-0.5 [facility] Platelet mean volume [Entiti c volume] in Blood by Automated countOrdered By: Yoli Norris on 08-15-2023 Platelet mean volume (Bld) [Entitic vol] 9.2 fL Normal 6.3-10.7 [facility] Comment on above: Performed By: #### C BC, HEPATIC, BMP, LIPASE #### [facility] [address] [place] [address] [place] Platelets [#/volume] in Bloo d by Automated countOrdered By: Yoli Norris on 08-15-2023 Platelets (Bld) [#/Vol] 321 10*3/uL Normal 150-450 [facility] Comment on above: Performed By: #### C BC, HEPATIC, BMP, LIPASE #### [address] Potassium [Moles/volume] in Serum or PlasmaOrdered By: Yoli Norris on 08-15-2023 Potassium [Moles/Vol] 3.5 mmol/L Normal 3.5-5.1 [facility] Comment on above: Performed By: #### C BC, HEPATIC, BMP, LIPASE #### [address] Protein Auto test strip (U) [Mass/Vol]Ordered By: Yoli Norris on 08-15-2023 Protein (U) [Mass/Vol] Negative Negative [facility] Protein [Mass/volume] in Ser um or PlasmaOrdered By: Yoli Norris on 08-15-2023 Protein [Mass/Vol] 7.8 g/dL Normal 6.4-8.9 [facility] Comment on above: Performed By: #### C BC, HEPATIC, BMP, LIPASE #### [address] Serum globulin measurement b y calculation (mass/volume)Ordered By: Yoli Norris on 08-15-2023 Globulin (S) [Mass/Vol] 3.2 g/dL [facility] Comment on above: Performed By: #### C BC, HEPATIC, BMP, LIPASE #### [address] Serum or plasma albumin/glob ulin mass ratioOrdered By: Yoli Norris on 08-15-2023 Albumin/Globulin [Mass ratio] 1.4 {ratio} [facility] Comment on above: Performed By: #### C BC, HEPATIC, BMP, LIPASE #### [address] Serum or plasma anion gap de terminationOrdered By: Yoli Norris on 08-15-2023 Anion gap [Moles/Vol] 12.7 mmol/L Normal 6.0-15.0 [facility] Comment on above: Performed By: #### C BC, HEPATIC, BMP, LIPASE #### [facility] [address] Serum or plasma non-glucuron idated bilirubin measurement (mass/volume)Ordered By: Yoli Norris on 08-15-2023 Bilirubin.indirect [Mass/Vol] 0.3 mg/dL [facility] Sodium [Moles/volume] in Ser um or PlasmaOrdered By: Yoli Norris on 08-15-2023 Sodium [Moles/Vol] 140 mmol/L Normal 136-145 [facility] Comment on above: Performed By: #### C BC, HEPATIC, BMP, LIPASE #### [address] Specific gravity Auto test s trip (U) [Rel density]Ordered By: Yoli Norris on 08-15-2023 Specific gravity (U) [Rel density] 1.007 1.001-1.030 [facility] Urea nitrogen [Mass/volume] in Serum or PlasmaOrdered By: Yoli Norris on 08-15-2023 Urea nitrogen [Mass/Vol] 11 mg/dL Normal 7-25 [facility] Comment on above: Performed By: #### C BC, HEPATIC, BMP, LIPASE #### [address] Urinalysison 08-15-2023 Appearance (U) Clear Normal Clear [facility] Comment on above: Order Comment: Name Collection Type:: Clean-Voided Midstream Performed By: #### U A, UHCG #### [address] Bilirubin,Urine Negative Normal Negative [facility] Comment on above: Order Comment: Name Collection Type:: Clean-Voided Midstream Performed By: #### U A, UHCG #### [address] Glucose Ql (U) Normal Normal Normal [facility] Comment on above: Order Comment: Name Collection Type:: Clean-Voided Midstream Performed By: #### U A, UHCG #### [address] Ketones Ql (U) Negative Normal Negative [facility] Comment on above: Order Comment: Name Collection Type:: Clean-Voided Midstream Performed By: #### U A, UHCG #### [address] Leukocyte esterase Test strip Ql (U) Negative Normal Negative [facility] Comment on above: Order Comment: Name Collection Type:: Clean-Voided Midstream Performed By: #### U A, UHCG #### [place] [address] [place] Nitrite,Urine Negative Normal Negative [facility] Comment on above: Order Comment: Name Collection Type:: Clean-Voided Midstream Performed By: #### U A, UHCG #### [address] Occult Blood,Urine Negative Normal Negative [facility] Comment on above: Order Comment: Name Collection Type:: Clean-Voided Midstream Performed By: #### U A, UHCG #### [address] Protein,Urine Negative Normal Negative [facility] Comment on above: Order Comment: Name Collection Type:: Clean-Voided Midstream Performed By: #### U A, UHCG #### [address] Specificy [place],Urine 1.007 Normal 1.001-1.030 [facility] Comment on above: Order Comment: Name Collection Type:: Clean-Voided Midstream Performed By: #### U A, UHCG #### [place] [address] [place] Urobilinogen,Urine Normal Normal Normal [facility] Comment on above: Order Comment: Name Collection Type:: Clean-Voided Midstream Performed By: #### U A, UHCG #### [place] [address] [place] Urine clarity by refractomet ry automatedOrdered By: Yoli Norris on 08-15-2023 Clarity Refractometry automated (U) Clear Clear [facility] Urine glucose measurement by automated test strip (mass/volume)Ordered By: Yoli Norris on 08-15-2023 Glucose Auto test strip (U) [Mass/Vol] Normal mg/dL Normal [facility] Urine hemoglobin detection b y automated test stripOrdered By: Yoli Norris on 08-15-2023 Hemoglobin Auto test strip Ql (U) Negative Negative [facility] Urine leukocyte esterase det ection by automated test stripOrdered By: Yoli Norris on 08-15-2023 Leukocyte esterase Auto test strip Ql (U) Negative Negative [facility] Urine pH measurement by auto mated test stripOrdered By: Yoli Norris on 08-15-2023 pH (U) 8.0 [pH] Normal 5.0-9.0 [facility] Comment on above: Order Comment: Name Collection Type:: Clean-Voided Midstream Performed By: #### U A, UHCG #### [facility] [address] Urobilinogen Auto test strip (U) [Mass/Vol]Ordered By: Yoli Norris on 08-15-2023 Urobilinogen (U) [Mass/Vol] Normal mg/dL Normal [facility] Vitamin B1on 08-15-2023 Vitamin B1 145 nmol/L Normal 70-180 [facility] Comment on above: Result Comment: (NOT [...] developed and its performance characteristics determined by [facility]. It has not been cleared or approved by the [place] Food and Drug Administration. This test was performed in a CLIA certified laboratory and is intended for clinical purposes. Performed By: [facility] [address] [place] [address] Photocopying Equipment Mechanic: Osmar Salcido MD, PhD CLIA Number: [id number] Performed By: #### P BAILEY, ALFONSO, FERI, GLYHGB, VD25 #### [place] [id number] Rd Manager: Harpal Adair MD #### AGNES OLIVO, AZN #### [address] [address] Rd Manager: Patricio Zuñiga MD #### CP, MG, CDP #### [facility] [address] [place] [address] Rd Manager: Hiltno Armenta MD Zinc, Serumon 08-14-2023 Zinc, Serum 95.3 ug/dL Normal 60.0-120.0 [facility] Comment on above: Result Comment: (NOT [...] developed and its performance characteristics determined by [facility]. It has not been cleared or approved by the US Food and Drug Administration. This test was performed in a CLIA certified laboratory and is intended for clinical purposes. Performed By: [facility] [address] [place] [id number] Photocopying Equipment Mechanic: Osmar Salcido MD, PhD CLIA Number: [id number] Performed By: #### P THNCA, FEBC, FERI, GLYHGB, VD25 #### [facility] [address] [place] [address] Rd Manager: Harpal Adair MD #### AGNES OLIVO, AZN #### [facility] [place] [address] [place] [address] [address] Manager: Patricio Zuñiga MD #### ANGEL, MG, CDP #### [facility] [address] [place] [address] Rd Manager: Hilton Armenta MD B12/Folate Panelon 3 Folic Acid >20.0 Normal >4.8 [facility] Comment on above: Performed By: #### P BAILEY, ALFONSO, FERI, GLYHGB, VD25 #### [facility] [address] [place] [address] Rd Manager: Harpal Adair MD #### AGNES OLIVO, AZN #### [facility] [address] [place], [place] [id number] Rd Manager: Patricio Zuñiga MD #### ANGEL MG, CDP #### [address] [place] [address] Rd Manager: Hilton Armenta MD Cobalamin (Vitamin B12) [Mass/Vol] 632 pg/mL Normal 232-1245 [facility] Comment on above: Performed By: #### ALFONSO COSTA, FERI, GLYHGB, VD25 #### [facility] [address] [place] [address] Rd Manager: Harpal Adair MD #### AGNES OLIVO, AZN #### [facility] [address] [place] [address] Rd Manager: Patricio Zuñiga MD #### ANGEL MG, CDP #### [address] [place] [address] Rd Manager: Hilton Armenta MD CBC with Diffon 08-12-2023 Abs. Basophil 0.06 k/uL Normal 0.00-0.20 [facility] Comment on above: Performed By: #### Kina AVALOS, FECHRIS, FERI, GLYHGB, VD25 #### [facility] [address] [place] [address] Rd Manager: Harpal Adair MD #### AGNES OLIVO, AZN #### [facility] [address] [place], [place] [id number] Rd Manager: Patricio Zuñiga MD #### ANGEL, MG, CDP #### [address] [place] [address] Rd Manager: Hilton Armenta MD Abs.Imm.Granulocyte 0.03 k/uL Normal 0.00-0.30 [facility] Comment on above: Performed By: #### P THNCA, FEBC, FERI, GLYHGB, VD25 #### [facility] [address] [place] [id number] Manager: Harpal Adair MD #### AGNES OLIVO, AZN #### [facility] [address] [place], [place] [id number] Rd Manager: Patricio Zuñiga MD #### MG ANGEL, CDP #### [address] [place] [address] Rd Manager: Hilton Armenta MD Abs.Neutrophil (Seg) 6.33 k/uL Normal 1.50-8.10 [facility] Comment on above: Performed By: #### P DENNISA, FEBC, FERI, GLYHGB, VD25 #### [id number] Manager: Harpal Adair MD #### AGNES OLIVO, AZN #### [facility] [address] [place], [place] [id number] Rd Manager: Patricio Zuñiga MD #### ANGEL, MG, CDP #### [address] [place] [address] Rd Manager: Hilton Armenta MD Basophils/100 WBC (Bld) 1 % Normal 0-2 [facility] Comment on above: Performed By: #### P THNCA, FEBC, FERI, GLYHGB, VD25 #### [address] [address] Rd Manager: Harpal Adair MD #### AGNES OLIVO, AZN #### [facility] [address] [place], [place] [id number] Rd Manager: Patricio Zuñiga MD #### CP, MG, CDP #### [facility] [address] [place] [address] [place] [address] Rd Manager: Hilton Armenta MD Eosinophils (Bld) [#/Vol] 0.43 10*3/uL Normal 0.00-0.44 [facility] Comment on above: Performed By: #### ALFONSO COSTA, FERI, GLYHGB, VD25 #### [address] [address] [address] Manager: Harpal Adair MD #### AGNES OLIVO, AZN #### [facility] [address] [place], [place] [id number] Rd Manager: Patricio Zuñiga MD #### ANGEL, MG, CDP #### [address] [place] [address] Rd Manager: Hilton Armenta MD Eosinophils/100 WBC (Bld) 5 % High 1-4 [facility] Comment on above: Performed By: #### P BAILEY, ALFONSO, FERI, GLYHGB, VD25 #### [address] [address] [address] Manager: Harpal Adair MD #### AGNES OLIVO, AZN #### [facility] [address] [place], [place] [id number] Rd Manager: Patricio Zuñiga MD #### CP, MG, CDP #### [address] [place] [address] Rd Manager: Hilton Armenta MD Erythrocyte distribution width (RBC) [Ratio] 14.9 % High 11.8-14.4 [facility] Comment on above: Performed By: #### P THNCA, FEBC, FERI, GLYHGB, VD25 #### [facility] [place] [address] Rd Manager: Harpal Adair MD #### AGNES OLIVO, AZN #### [facility] [address] [place] [address] Rd Manager: Patricio Zuñiga MD #### ANGEL MG, CDP #### [address] [place] [address] Rd Manager: Hilton Armenta MD Hematocrit (Bld) [Volume fraction] 38.0 % Normal 36.3-47.1 [facility] Comment on above: Performed By: #### Kina AVALOS, JOSÉ LUISBC, FERI, GLYHGB, VD25 #### [address] [address] [address] Manager: Harpal Adair MD #### AGNES OLIVO, AZN #### [facility] [address] [place] [address] Rd Manager: Patricio Zuñiga MD #### ANGEL, MG, CDP #### [address] [place] [address] Rd Manager: Hilton Armenta MD Hemoglobin (Bld) [Mass/Vol] 12.2 g/dL Normal 11.9-15.1 [facility] Comment on above: Performed By: #### P GINCA, FEBC, FERI, GLYHGB, VD25 #### [address] [address] [address] Manager: Harpal Adair MD #### AGNES OLIVO, AZN #### [facility] [address] [place], [place] [id number] Rd Manager: Patricio Zuñiga MD #### CP, MG, CDP #### [facility] [address] [place] [address] [place] [address] Rd Manager: Hilton Armenta MD Immature granulocytes/100 WBC (Bld) 0 % Normal 0 [facility] Comment on above: Performed By: #### P THNCA, FEBC, FERI, GLYHGB, VD25 #### [facility] [address] [place] [address] [address] Manager: Harpal Adair MD #### AGNES OLIVO, AZN #### [facility] [address] [place] [address] Rd Manager: Patricio Zuñiga MD #### ANGEL MG, CDP #### [address] [place] [id number] Rd Manager: Hilton Armenta MD Lymphocytes (Bld) [#/Vol] 1.90 10*3/uL Normal 1.10-3.70 [facility] Comment on above: Performed By: #### P THNCA, FEBC, FERI, GLYHGB, VD25 #### [address] [address] [address] Manager: Harpal Adair MD #### AGNES OLIVO, AZN #### [facility] [address] [place], [place] [id number] Rd Manager: Patricio Zuñiga MD #### CP, MG, CDP #### [address] [place] [address] Rd Manager: Hilton Armenta MD Lymphocytes/100 WBC (Bld) 20 % Low 24-43 [facility] Comment on above: Performed By: #### P THNCA, FEBC, FERI, GLYHGB, VD25 #### [facility] [address] [place] [address] [address] Manager: Harpal Adair MD #### AGNES OLIVO, AZN #### [facility] [address] [place], [place] [id number] Rd Manager: Patricio Zuñiga MD #### CP, MG, CDP #### [address] [place], [place] [address]2383 Rd Manager: Hilton Armenta MD MCH (RBC) [Entitic mass] 29.9 pg Normal 25.2-33.5 [facility] Comment on above: Performed By: #### ALFONSO COSTA, FERI, GLYHGB, VD25 #### [address] [place] [address] Rd Manager: Harpal Adair MD #### AGNES OLIVO, AZN #### [address] [address] Rd Manager: Patricio Zuñiga MD #### ANGEL, MG, CDP #### [address] [place] [id number] Rd Manager: Hilton Armenta MD MCHC (RBC) [Mass/Vol] 32.1 g/dL Normal 28.4-34.8 [facility] Comment on above: Performed By: #### P ALFONSO AVALOS, FERI, GLYHGB, VD25 #### [facility] [address] [place] [address] Rd Manager: Harpal Adair MD #### AGNES OLIVO, AZN #### [facility] [address] [place] [address] Rd Manager: Patricio Zuñiga MD #### CP, MG, CDP #### [address] [place] [address] Rd Manager: Hilton Armenta MD MCV (RBC) [Entitic vol] 93.1 fL Normal 82.6-102.9 [facility] Comment on above: Performed By: #### P THNCA, FEBC, FERI, GLYHGB, VD25 #### [facility] [place] [address] Rd Manager: Harpal Adair MD #### ARIAN OLIVOTBCeli, AZN #### [facility] [address] [place] [address] Rd Manager: Patricio Zuñiga MD #### CP, MG, CDP #### [address] [place] [address] Rd Manager: Hilton Armenta MD Monocytes (Bld) [#/Vol] 0.70 10*3/uL Normal 0.10-1.20 [facility] Comment on above: Performed By: #### P DENNISA, FEBC, FERI, GLYHGB, VD25 #### [address] [address] [address] Manager: Harpal Adair MD #### AGNES OLIVO, AZN #### [facility] [address] [place] [address] Rd Manager: Patricio Zñuiga MD #### ANGEL, MG, CDP #### [address] [place] [address] Rd Manager: Hilton Armenta MD Monocytes/100 WBC (Bld) 7 % Normal 3-12 [facility] Comment on above: Performed By: #### P GINCA, FECHRIS, FERI, GLYHGB, VD25 #### [address] [address] [address] Manager: Harpal Adair MD #### ARIAN OLIVOTB1, AZN #### [facility] [address] [place], [place] [id number] Rd Manager: Patricio Zuñiga MD #### CP, MG, CDP #### [facility] [address] [place] [address] [place] [address] Rd Manager: Hilton Armenta MD Neutrophil (Seg) 67 % High 36-65 [facility] Comment on above: Performed By: #### P THNCA, FEBC, FERI, GLYHGB, VD25 #### [id number] Manager: Harpal Adair MD #### ARIAN OLIVOTB1, AZN #### [facility] [address] [place] [address] Rd Manager: Patricio Zuñiga MD #### ANGEL, MG, CDP #### [address] [place] [address] Rd Manager: Hilton Armenta MD NRBC Automated 0.0 per 100 WBC Normal 0.0 [facility] Comment on above: Performed By: #### P THNCA, FEBC, FERI, GLYHGB, VD25 #### [id number] Manager: Harpal Adair MD #### ARIAN OLIVOTBCeli, AZN #### [facility] [address] [place] [address] Rd Manager: Patricio Zuñiga MD #### CP, MG, CDP #### [facility] [address] [place] [address] [place] [address] Rd Manager: Hilton Armenta MD Platelet mean volume (Bld) [Entitic vol] 10.6 fL Normal 8.1-13.5 [facility] Comment on above: Performed By: #### P THNCA, FEBC, FERI, GLYHGB, VD25 #### [address] [address] [address] Manager: Harpal Adair MD #### AVITAS, ARIANTB1, AZN #### [facility] [address] [place] [address] Rd Manager: Patricio Zuñiga MD #### CP, MG, CDP #### [address] [place], [place] [address]438083 Rd Manager: Hilton Armenta MD Platelets (Bld) [#/Vol] 355 10*3/uL Normal 138-453 [facility] Comment on above: Performed By: #### P THNCA, FEBC, FERI, GLYHGB, VD25 #### [facility] [address] [place] [address] [id number] Manager: Harpal Adair MD #### FARHADS, ARIANTB1, AZN #### [facility] [address] [place] [address] Rd Manager: Patricio Zuñiga MD #### CP, MG, CDP #### [address] [place] [id number] Rd Manager: Hilton Armenta MD RBC (Bld) [#/Vol] 4.08 10*6/uL Normal 3.95-5.11 [facility] Comment on above: Performed By: #### P THNCA, FEBC, FERI, GLYHGB, VD25 #### [facility] [address] [place] [address] [address] Manager: Harpal Adair MD #### AVITAS, AVITB1, AZN #### [facility] [address] [place] [address] Rd Manager: Patricio Zuñiga MD #### CP, MG, CDP #### [address] [place], [place] 2245583 Rd Manager: Hilton Armenta MD WBC (Bld) [#/Vol] 9.5 10*3/uL Normal 3.5-11.3 [facility] Comment on above: Performed By: #### P THNCA, FEBC, FERI, GLYHGB, VD25 #### [facility] [place] [address] Rd Manager: Harpal Adair MD #### AGNES OLIVO, AZN #### [facility] [address] [place], [place] [id number] Rd Manager: Patricio Zuñiga MD #### CP, MG, CDP #### [address] [place] [address] Rd Manager: Hilton Armenta MD Comp Metabolic Profon 2022 Albumin [Mass/Vol] 4.5 g/dL Normal 3.5-5.2 [facility] Comment on above: Performed By: #### P DENNISA, FEBC, FERI, GLYHGB, VD25 #### [address] [address] [address] Manager: Harpal Adair MD #### AGNES OLIVO, AZN #### [facility] [address] [place] [address] [address] Manager: Patricio Zuñiga MD #### ANGEL, MG, CDP #### [address] [place] [address] Rd Manager: Hilton Armenta MD Albumin/Glob Ratio 1.6 Normal 1.0-2.5 [facility] Comment on above: Performed By: #### P THNCA, FEBC, FERI, GLYHGB, VD25 #### [facility] [address] [place] [address] [address] Manager: Harpal Adair MD #### AGNES OLIVO, AZN #### [facility] [address] [place] [address] Rd Manager: Patricio Zuñiga MD #### CP, MG, CDP #### [facility] [address] [place] [address] Rd Manager: Hilton Armenta MD Alkaline Phos 85 U/L Normal 35-104 [facility] Comment on above: Performed By: #### P THNCA, FEBC, FERI, GLYHGB, VD25 #### [facility] [address] [place] [address] [address] Manager: Harpal Adair MD #### ARIAN OLIVOTB1, AZN #### [facility] [address] [place] [address] Rd Manager: Patricio Zuñiga MD #### ANGEL, MG, CDP #### [address] [place] [address] Rd Manager: Hilton Armenta MD ALT [Catalytic activity/Vol] 21 U/L Normal 5-33 [facility] Comment on above: Performed By: #### P THNCA, FEBC, FERI, GLYHGB, VD25 #### [address] [address] [address] Manager: Harpal Adair MD #### ARIAN OLIVOTB1, AZN #### [facility] [address] [place] [address] Rd Manager: Patricio Zuñiga MD #### CP, MG, CDP #### [address] [place] [address] Rd Manager: Hilton Armenta MD Anion gap [Moles/Vol] 11 mmol/L Normal 9-17 [facility] Comment on above: Performed By: #### P THNCA, FEBC, FERI, GLYHGB, VD25 #### [facility] [address] [place] [address] [address] Manager: Harpal Adair MD #### ARIAN OLIVOTB1, AZN #### [facility] [address] [place], [place] [id number] Rd Manager: Patricio Zuñiga MD #### CP, MG, CDP #### [facility] [address] [place], [place] 1017683 Rd Manager: Hilton Armenta MD AST [Catalytic activity/Vol] 22 U/L Normal <32 [facility] Comment on above: Performed By: #### P THNCA, FEBC, FERI, GLYHGB, VD25 #### [address] [place] [address] Rd Manager: Harpal Adair MD #### TYREE OLIVO1, AZN #### [facility] [address] [place], [place] [id number] Rd Manager: Patricio Zuñiga MD #### ANGEL, MG, CDP #### [facility] [address] [place] [address] Rd Manager: Hilton Armenta MD Bilirubin [Mass/Vol] 0.2 mg/dL Low 0.3-1.2 [facility] Comment on above: Performed By: #### P THHAYDEEA, FEBC, FERI, GLYHGB, VD25 #### [address] [address] [address] Manager: Harpal Adair MD #### TYREE OLIVO1, AZN #### [facility] [address] [place], [place] [id number] Rd Manager: Patricio Zuñiga MD #### CP, MG, CDP #### [facility] [address] [place] [address] Rd Manager: Hilton Armenta MD BUN/CRE Ratio 20 Normal 9-20 [facility] Comment on above: Performed By: #### P THNCA, FEBC, FERI, GLYHGB, VD25 #### [address] [address] [address] Manager: Harpal Adair MD #### AGNES OLIVO, AZN #### [facility] [address] [place], [place] [id number] Rd Manager: Patricio Zuñiga MD #### ANGEL MG, CDP #### [address] [place], [place] 7431083 Rd Manager: Hilton Armenta MD Calcium [Mass/Vol] 9.9 mg/dL Normal 8.6-10.4 [facility] Comment on above: Performed By: #### P THNCA, FEBC, FERI, GLYHGB, VD25 #### [address] [address] [address] Manager: Harpal Adair MD #### AGNSE OLIVO, AZN #### [facility] [address] [place], [place] [id number] Rd Manager: Patricio Zuñiga MD #### MG ANGEL, CDP #### [address] [place] [address] Rd Manager: Hilton Armenta MD Chloride [Moles/Vol] 107 mmol/L Normal 98-107 [facility] Comment on above: Performed By: #### P THNCA, FEBC, FERI, GLYHGB, VD25 #### [address] [address] [address] Manager: Harpal Adair MD #### AGNES OLIVO, AZN #### [facility] [address] [place], [place] [id number] Rd Manager: Patricio Zuñiga MD #### NAGEL MG, CDP #### [address] [place], [place] [phone] Rd Manager: Hilton Armenta MD CO2 [Moles/Vol] 23 mmol/L Normal 20-31 [facility] Comment on above: Performed By: #### P BAILEY, ALFONSO, FERI, GLYHGB, VD25 #### [facility] [address] [place] [address] Rd Manager: Harpal Adair MD #### AGNES OLIVO, AZN #### [facility] [address] [place], [place] [id number] Rd Manager: Patricio Zuñiga MD #### MG ANGEL, CDP #### [facility] [address] [place], [place] [phone] Rd Manager: Hilton Armenta MD Creatinine [Mass/Vol] 0.6 mg/dL Normal 0.5-0.9 [facility] Comment on above: Performed By: #### Kina AVALOS, ALFONSO, FERI, GLYHGB, VD25 #### [address] [address] [address] Manager: Harpal Adair MD #### AGNES OLIVO, AZN #### [facility] [address] [place] [id number] Manager: Patricio Zuñiga MD #### ANGEL MG, CDP #### [facility] [address] [place], [place] 1214283 Rd Manager: Hilton Armenta MD GFR/1.73 sq M.predicted among non-blacks MDRD (S/P/Bld) [Vol rate/Area] mL/min/{1.73_m2} Normal >60 [facility] [...] affects renal tubular secretion. Performed By: #### ALFONSO COSTA, FERI, GLYHGB, VD25 #### [address] [address] [address] Manager: Harpal Adair MD #### AGNES OLIVO, AZN #### [facility] [address] [place] [address] Rd Manager: Patricio Zuñiga MD #### ANGEL, MG, CDP #### [address] [place] [address] Rd Manager: Hilton Armenta MD Glucose [Mass/Vol] 89 mg/dL Normal 70-99 [facility] Comment on above: Performed By: #### ALFONSO COSTA, ARNOLDO, GLYHGB, VD25 #### [address] [address] [address] Manager: Harpal Adair MD #### AGNES OLIVO, AZN #### [facility] [address] [place] [address] [id number] Manager: Patricio Zuñiga MD #### ANGEL, MG, CDP #### [address] [place] [address] Rd Manager: Hilton Armenta MD Potassium [Moles/Vol] 4.3 mmol/L Normal 3.7-5.3 [facility] Comment on above: Performed By: #### ALFONSO COSTA, FERI, GLYHGB, VD25 #### [address] [address] [address] Manager: Harpal Adair MD #### AGNES OLIVO, AZN #### [facility] [address] [place], [place] [id number] Rd Manager: Patricio Zuñiga MD #### CP, MG, CDP #### [facility] [address] [place], [place] 6796483 Rd Manager: Hilton Armenta MD Protein [Mass/Vol] 7.4 g/dL Normal 6.4-8.3 [facility] Comment on above: Performed By: #### P THNCA, FEBC, FERI, GLYHGB, VD25 #### [address] [address] [address] Manager: Harpal Adair MD #### ARIAN OLIVOTBCeli, AZN #### [facility] [address] [place] [address] Rd Manager: Patricio Zuñiga MD #### ANGEL, MG, CDP #### [address] [place] [address] Rd Manager: Hilton Armenta MD Sodium [Moles/Vol] 141 mmol/L Normal 135-144 [facility] Comment on above: Performed By: #### P THNCA, FEBC, FERI, GLYHGB, VD25 #### [address] [address] [address] Manager: Harpal Adair MD #### ARIAN OLIVOTBCeli, AZN #### [facility] [address] [place] [address] [address] Manager: Patricio Zuñiga MD #### CP, MG, CDP #### [facility] [address] [place] [address] Dr. [place], [place] [id number] Rd Manager: Hilton Armenta MD Urea nitrogen [Mass/Vol] 12 mg/dL Normal 6-20 [facility] Comment on above: Performed By: #### P THNCA, FEBC, FERI, GLYHGB, VD25 #### [address] [address] [address] Manager: Harpal Adair MD #### ARIAN OLIVOTB1, AZN #### [facility] [address] [place], [place] [id number] Rd Manager: Patricio Zuñiga MD #### CP, MG, CDP #### [facility] [address] [place] [address] Rd Manager: Hilton Armenta MD Ferritinon 08-12-2023 Ferritin [Mass/Vol] 12 ng/mL Low 13-150 [facility] Comment on above: Performed By: #### P THHAYDEEA, FEBC, FERI, GLYHGB, VD25 #### [facility] [address] [place] [address] Rd Manager: Harpal Adair MD #### ARIAN OLIVOTB1, AZN #### [facility] [address] [place] [address] Rd Manager: Patricio Zuñiga MD #### CP, MG, CDP #### [facility] [address] [place] [address] [place] [address] Rd Manager: Hilton Armenta MD Hemoglobin A1Con 08-12-2023 Glucose [Mass/Vol] 114 mg/dL Normal [facility] Comment on above: Result Comment: The ADA and AACC recommend providing the estimated average glucose result to permit better patient understanding of their HBA1c result. Performed By: #### P THNCA, FEBC, FERI, GLYHGB, VD25 #### [facility] [address] [place], [place] [address]308 Rd Manager: Harpal Adair MD #### ARIAN OLIVOTB1, AZN #### [facility] [address] [place], [place] [id number] Rd Manager: Patricio Zuñiga MD #### CP, MG, CDP #### [facility] [address] [place] [address] Rd Manager: Hilton Armenta MD HbA1c (Bld) [Mass fraction] 5.6 % Normal 4.0-6.0 [facility] Comment on above: Performed By: #### P THNCA, FEBC, FERI, GLYHGB, VD25 #### [address] [address] [address] Manager: Harpal Adair MD #### AGNES OLIVO, AZN #### [facility] [address] [place] [address] Rd Manager: Patricio Zuñiga MD #### MG ANGEL, CDP #### [facility] [address] [place] [address] Rd Manager: Hilton Armenta MD Iron Binding Cap.on 08-12-20 23 % Fe Saturation 16 % Low 20-55 [facility] Comment on above: Performed By: #### P THNCA, FEBC, FERI, GLYHGB, VD25 #### [address] [address] [address] Manager: Harpal Adair MD #### AGNES OLIVO, AZN #### [facility] [address] [place] [address] Rd Manager: Patricio Zuñiga MD #### MG ANGEL, CDP #### [facility] [address] [place] [address] Rd Manager: Hilton Armenta MD Iron [Mass/Vol] 57 ug/dL Normal 37-145 [facility] Comment on above: Performed By: #### P THNCA, FEBC, FERI, GLYHGB, VD25 #### [address] [address] [address] Manager: Harpal Adair MD #### AGNES OLIVO, AZN #### [facility] [address] [place], [place] [id number] Rd Manager: Patricio Zuñiga MD #### CP, MG, CDP #### [facility] [address] [place] [address] [place] [address] Rd Manager: Hilton Armenta MD Total Fe Binding Cap 354 ug/dL Normal 250-450 [facility] Comment on above: Performed By: #### P THNCA, FEBC, FERI, GLYHGB, VD25 #### [facility] [address] [place] [address] [id number] Manager: Harpal Adair MD #### ARIAN OLIVOTB1, AZN #### [facility] [address] [place] [address] Rd Manager: Patricio Zuñiga MD #### CP, MG, CDP #### [address] [place] [address] Rd Manager: Hilton Armenta MD Unbound Fe Bind Cap 297 ug/dL Normal 112-347 [facility] Comment on above: Performed By: #### P THNCA, FEBC, FERI, GLYHGB, VD25 #### [id number] Manager: Harpal Adair MD #### ARIAN OLIVOTBCeli, AZN #### [facility] [address] [place] [address] Rd Manager: Patricio Zuñiga MD #### CP, MG, CDP #### [facility] [address] [place] [address] [place] [address] Rd Manager: Hilton Armenta MD Lipid Profileon 08-12-2023 Cholesterol [Mass/Vol] 153 mg/dL Normal <200 [facility] Comment on above: Result Comment: Cholesterol Guidelines: <200 Desirable 200-240 Borderline >240 Undesirable Performed By: #### L IPR #### [address] [address] [address] Manager: Harpal Adair MD Cholesterol in HDL [Mass/Vol] 68 mg/dL Normal >40 [facility] Comment on above: Result Comment: HDL Guidelines: <40 Undesirable 40-59 Borderline >59 Desirable Performed By: #### L IPR #### [facility] [place], [place] [id number] Rd Manager: Harpal Adair MD Cholesterol in LDL [Mass/Vol] 77 mg/dL Normal 0-130 [facility] Comment on above: Result Comment: LDL Guidelines: <100 Desirable 100-129 Near to/above Desirable 130-159 Borderline >159 Undesirable Direct (measured) LDL and calculated LDL are not interchangeable tests. Performed By: #### L IPR #### [facility] [address] [place] [address] [address] Manager: Harpal Adair MD Cholesterol.total/Cho lesterol in HDL [Mass ratio] 2.3 {ratio} Normal <5 [facility] Comment on above: Performed By: #### L IPR #### [facility] [address] [place] [address] [address] [address] Manager: Harpal Adair MD Triglyceride [Mass/Vol] 39 mg/dL Normal <150 [facility] Comment on above: Result Comment: Triglyceride Guidelines: <150 Desirable 150-199 Borderline 200-499 High >499 Very high Based on AHA Guidelines for fasting triglyceride, June 2012. Performed By: #### L IPR #### [facility] [address] [place] [address] [address] Manager: Harpal Adair MD Magnesiumon 08-12-2023 Magnesium [Mass/Vol] 2.1 mg/dL Normal 1.6-2.6 [facility] Comment on above: Performed By: #### P THHAKEEM, FECHRIS, FERI, GLYHGB, VD25 #### [facility] [address] [place] [address] Rd Manager: Harpal Adair MD #### AGNES OLIVO, AZN #### [facility] [address] [place] [address] Rd Manager: Patricio Zuñiga MD #### ANGEL, MG, CDP #### [address] [place] [address] Rd Manager: Hilton Armenta MD PTH, Intacton 08-12-2023 PTH, Intact 17.1 pg/mL Normal 14.0-72.0 [facility] Comment on above: Result Comment: SAMP LES FROM PATIENTS ROUTINELY RECEIVING HIGH DOSE BIOTIN THERAPY MAY SHOW FALSELY DEPRESSED RESULTS. ADDITIONAL INFORMATION MAY BE REQUIRED FOR DIAGNOSIS. Performed By: #### P ALFONSO AVALOS, ARNOLDO, DONAVANB, VD25 #### [id number] Manager: Harpal Adair MD #### AGNES OLIVO, AZN #### [id number] Manager: Patricio Zuñiga MD #### MG ANGEL, CDP #### [address] [place] [address] Rd Manager: Hilton Armenta MD Thyroid Stim. Horm.on 2022 Thyroid Stim. Horm. 1.50 uIU/mL Normal 0.30-5.00 [facility] Comment on above: Performed By: #### P BAILEY, ALFONSO, FERI, GLYHGB, VD25 #### [id number] Manager: Harpal Adair MD #### AGNES OLIVO, AZN #### [facility] [address] [place] [id number] Manager: Patricio Zuñiga MD #### ANGEL MG, CDP #### [address] [place] [address] Rd Manager: Hilton Armenta MD Thyroxine, Freeon 08-12-2023 Thyroxine, Free 1.2 ng/dL Normal 0.9-1.7 [facility] Comment on above: Performed By: #### P THNCA, FEBC, FERI, GLYHGB, VD25 #### [facility] [address] [place] [address] Rd Manager: Harpal Adair MD #### TYREE OLIVO1, AZN #### [facility] [address] [place] [address] Rd Manager: Patricio Zuñiga MD #### CP, MG, CDP #### [facility] [address] [place] [address] Rd Manager: Hilton Armneta MD US GALLBLADDER RUQon 023 US GALLBLADDER RUQ EXAMINATION: RIGHT UPPER QUADRANT ULTRASOUND 08/12/2023 7:25 am COMPARISON: None. HISTORY: ORDERING SYSTEM PROVIDED HISTORY: LUQ pain TECHNOLOGIST PROVIDED HISTORY: This procedure can be scheduled via [employer]. Access your [employer] account by visiting App [place] [employer] FINDINGS: LIVER: The liver demonstrates normal echogenicity [...] Bret Monson DO 08/12/23 Final result Normal [facility] Vitamin D 25 OHon 08-12-2023 Vitamin D 25 OH 45.1 ng/mL Normal >29.9 [facility] Comment on above: Result Comment: Reference Range: Vitamin D status Range Deficiency <20 ng/mL Mild Deficiency 20-30 ng/mL Sufficiency 30-100 ng/mL Toxicity >100 ng/mL Performed By: #### P THHAYDEEA, FEBC, FERI, GLYHGB, VD25 #### [address] [address] [address] Manager: Harpal Adair MD #### AGNES OLIVO, AZN #### [facility] [address] [place] [address] Rd Manager: Patricio Zuñiga MD #### CP, MG, CDP #### [facility] [address] [place] [address] Rd Manager: Hilton Armenta MD Patient Correspondenceon Patient Correspondence [id number]#[id number] F Normal [facility] CBC with Diffon 07-30-2023 Abs. Basophil 0.08 k/uL Normal 0.00-0.20 [facility] Comment on above: Performed By: #### T BRIANNA, CDP, LIP, CP #### [address] [address] [address] Manager: Harpal Adair MD Abs.Imm.Granulocyte 0.04 k/uL Normal 0.00-0.30 [facility] Comment on above: Performed By: #### T SH, CDP, LIP, CP #### [address] [address] [address] Manager: Harpal Adair MD Abs.Neutrophil (Seg) 6.94 k/uL Normal 1.50-8.10 [facility] Comment on above: Performed By: #### T BRIANNA, CDP, LIP, CP #### [address] [address] [address] Manager: Harpal Adair MD Basophils/100 WBC (Bld) 1 % Normal 0-2 [facility] Comment on above: Performed By: #### T SH, CDP, LIP, CP #### [address] [address] [address] Manager: Harpal Adair MD Eosinophils (Bld) [#/Vol] 0.23 10*3/uL Normal 0.00-0.44 [facility] Comment on above: Performed By: #### T SH, CDP, LIP, CP #### [facility] [address] [place] [address] [address] Manager: Harpal Adair MD Eosinophils/100 WBC (Bld) 2 % Normal 1-4 [facility] Comment on above: Performed By: #### T SH, CDP, LIP, CP #### [place] [address] Rd Manager: Harpal Adair MD Erythrocyte distribution width (RBC) [Ratio] 15.3 % High 11.8-14.4 [facility] Comment on above: Performed By: #### T SH, CDP, LIP, CP #### [facility] [address] [place] [address] Rd Manager: Harpal Adair MD Hematocrit (Bld) [Volume fraction] 38.8 % Normal 36.3-47.1 [facility] Comment on above: Performed By: #### T SH, CDP, LIP, CP #### [facility] [address] [place] [address] [address] Manager: Harpal Adair MD Hemoglobin (Bld) [Mass/Vol] 12.5 g/dL Normal 11.9-15.1 [facility] Comment on above: Performed By: #### T SH, CDP, LIP, CP #### [facility] [address] [place] [address] [address] Manager: Harpal Adair MD Immature granulocytes/100 WBC (Bld) 0 % Normal 0 [facility] Comment on above: Performed By: #### T SH, CDP, LIP, CP #### [place] [address] Rd Manager: Harpal Adair MD Lymphocytes (Bld) [#/Vol] 2.19 10*3/uL Normal 1.10-3.70 [facility] Comment on above: Performed By: #### T SH, CDP, LIP, CP #### [place] [address] Rd Manager: Harpal Adair MD Lymphocytes/100 WBC (Bld) 21 % Low 24-43 [facility] Comment on above: Performed By: #### T SH, CDP, LIP, CP #### [place] [address] Rd Manager: Harpal Adair MD MCH (RBC) [Entitic mass] 30.6 pg Normal 25.2-33.5 [facility] Comment on above: Performed By: #### T SH, CDP, LIP, CP #### [place] [address] Rd Manager: Harpal Adair MD MCHC (RBC) [Mass/Vol] 32.2 g/dL Normal 28.4-34.8 [facility] Comment on above: Performed By: #### T SH, CDP, LIP, CP #### [place] [address] Rd Manager: Harpal Adair MD MCV (RBC) [Entitic vol] 94.9 fL Normal 82.6-102.9 [facility] Comment on above: Performed By: #### T SH, CDP, LIP, CP #### [address] [address] [address] Manager: Harpal Adair MD Monocytes (Bld) [#/Vol] 0.74 10*3/uL Normal 0.10-1.20 [facility] Comment on above: Performed By: #### T SH, CDP, LIP, CP #### [address] [address] [address] Manager: Harpal Adair MD Monocytes/100 WBC (Bld) 7 % Normal 3-12 [facility] Comment on above: Performed By: #### T SH, CDP, LIP, CP #### [address] [address] [address] Manager: Harpal Adair MD Neutrophil (Seg) 69 % High 36-65 [facility] Comment on above: Performed By: #### T SH, CDP, LIP, CP #### [address] [address] [address] Manager: Harpal Adair MD NRBC Automated 0.0 per 100 WBC Normal 0.0 [facility] Comment on above: Performed By: #### T SH, CDP, LIP, CP #### [address] [address] [address] Manager: Harpal Adair MD Platelet mean volume (Bld) [Entitic vol] 12.0 fL Normal 8.1-13.5 [facility] Comment on above: Performed By: #### T SH, CDP, LIP, CP #### [address] [address] [address] Manager: Harpal Adair MD Platelets (Bld) [#/Vol] 348 10*3/uL Normal 138-453 [facility] Comment on above: Performed By: #### T SH, CDP, LIP, CP #### [address] [address] [address] Manager: Harpal Adair MD RBC (Bld) [#/Vol] 4.09 10*6/uL Normal 3.95-5.11 [facility] Comment on above: Performed By: #### T SH, CDP, LIP, CP #### [facility] [address] [place] [address] [address] Manager: Harpal Adair MD RBC morphology finding Nom (Bld) ANISOCYTOSIS PRESENT Normal [facility] Comment on above: Performed By: #### T SH, CDP, LIP, CP #### [facility] [address] [place] [address] [address] Manager: Harpal Adair MD WBC (Bld) [#/Vol] 10.2 10*3/uL Normal 3.5-11.3 [facility] Comment on above: Performed By: #### T SH, CDP, LIP, CP #### [address] [address] [address] Manager: Harpal Adiar MD Comp Metabolic Profon 2022 Bilirubin [Mass/Vol] mg/dL Low 0.3-1.2 [facility] Comment on above: Performed By: #### T SH, CDP, LIP, CP #### [facility] [address] [place] [address] [address] Manager: Harpal Adair MD Albumin [Mass/Vol] 4.4 g/dL Normal 3.5-5.2 [facility] Comment on above: Performed By: #### T SH, CDP, LIP, CP #### [facility] [address] [place] [address] [address] Manager: Harpal Adair MD Albumin/Glob Ratio 1.4 Normal 1.0-2.5 [facility] Comment on above: Performed By: #### T SH, CDP, LIP, CP #### [facility] [address] [place] [address] [address] Manager: Harpal Adair MD Alkaline Phos 76 U/L Normal 35-104 [facility] Comment on above: Performed By: #### T SH, CDP, LIP, CP #### [address] [address] [address] Manager: Harpal Adair MD ALT [Catalytic activity/Vol] 20 U/L Normal 5-33 [facility] Comment on above: Performed By: #### T SH, CDP, LIP, CP #### [address] [address] [address] Manager: Harpal Adair MD Anion gap [Moles/Vol] 11 mmol/L Normal 9-17 [facility] Comment on above: Performed By: #### T SH, CDP, LIP, CP #### [address] [address] [address] Manager: Harpal Adair MD AST [Catalytic activity/Vol] 22 U/L Normal <32 [facility] Comment on above: Performed By: #### T SH, CDP, LIP, CP #### [facility] [address] [place] [address] [address] Manager: Harpal Adair MD Calcium [Mass/Vol] 9.6 mg/dL Normal 8.6-10.4 [facility] Comment on above: Performed By: #### T SH, CDP, LIP, CP #### [address] [address] [address] Manager: Harpal Adair MD Chloride [Moles/Vol] 105 mmol/L Normal 98-107 [facility] Comment on above: Performed By: #### T SH, CDP, LIP, CP #### [facility] [address] [place] [address] [address] [address] Manager: Harpal Adair MD CO2 [Moles/Vol] 23 mmol/L Normal 20-31 [facility] Comment on above: Performed By: #### T SH, CDP, LIP, CP #### [address] [address] [address] Manager: Harpal Adair MD Creatinine [Mass/Vol] 0.6 mg/dL Normal 0.5-0.9 [facility] Comment on above: Performed By: #### T VALERIO REED, LIP, CP #### [address] [address] [address] Manager: Harpal Adair MD GFR/1.73 sq M.predicted among non-blacks MDRD (S/P/Bld) [Vol rate/Area] mL/min/{1.73_m2} Normal >60 [facility] Comment on above: Result Comment: These [...] #### T VALERIO REED, LIP, CP #### [address] [address] [address] Manager: Harpal Adair MD Glucose [Mass/Vol] 73 mg/dL Normal 70-99 [facility] Comment on above: Performed By: #### T VALERIO REED LIP, CP #### [address] [address] [address] Manager: Harpal Adair MD Potassium [Moles/Vol] 4.0 mmol/L Normal 3.7-5.3 [facility] Comment on above: Performed By: #### T VALERIO REED, LIP, CP #### [address] [address] [address] Manager: Harpal Adair MD Protein [Mass/Vol] 7.5 g/dL Normal 6.4-8.3 [facility] Comment on above: Performed By: #### T SH, CDP, LIP, CP #### [facility] [address] [place] [address] [address] Manager: Harpal Adair MD Sodium [Moles/Vol] 139 mmol/L Normal 135-144 [facility] Comment on above: Performed By: #### T SH, CDP, LIP, CP #### [address] [address] [address] Manager: Harpal Adair MD Urea nitrogen [Mass/Vol] 15 mg/dL Normal 6-20 [facility] Comment on above: Performed By: #### T SH, CDP, LIP, CP #### [facility] [address] [place] [address] [address] Manager: Harpal Adair MD Lipaseon 07-30-2023 Lipase [Catalytic activity/Vol] 45 U/L Normal 13-60 [facility] Comment on above: Performed By: #### T SH, CDP, LIP, CP #### [facility] [address] [place] [address] [address] Manager: Harpal Adair MD Thyroid Stim. Horm.on 2022 Thyroid Stim. Horm. 1.18 uIU/mL Normal 0.30-5.00 [facility] Comment on above: Performed By: #### T SH, CDP, LIP, CP #### [address] [address] [address] Manager: Harpal Adair MD UA w/Reflex Cultureon 2022 Bilirubin, SemiQt,Ur Negative Normal NEG [facility] Comment on above: Performed By: #### U AX #### [address] [address] [address] Manager: Harpal Adair MD Blood, Urine Negative Normal NEG [facility] Comment on above: Performed By: #### U AX #### [address] [address] [address] Manager: Harpal Adair MD Clarity (U) Clear Normal CLEAR [facility] Comment on above: Performed By: #### U AX #### [address] [address] [address] Manager: Harpal Adair MD Color (U) Yellow Normal YEL [facility] Comment on above: Performed By: #### U AX #### [address] [address] [address] Manager: Harpal Aadir MD Comment Microscopic exam not performed based on chemical results unless requested in Normal [facility] Comment on above: Result Comment: orig inal order. Performed By: #### U AX #### [address] [address] [address] Manager: Harpal Adair MD Glucose Ql (U) Negative Normal NEG [facility] Comment on above: Performed By: #### U AX #### [address] [address] [address] Manager: Harpal Adair MD Ketones Ql (U) Negative Normal NEG [facility] Comment on above: Performed By: #### U AX #### [address] [address] [address] Manager: Harpal Adair MD Leukocyte esterase Test strip Ql (U) Negative Normal NEG [facility] Comment on above: Performed By: #### U AX #### [address] [address] [address] Manager: Harpal Adair MD Nitrite,Ur Negative Normal NEG [facility] Comment on above: Performed By: #### U AX #### [address] [address] [address] Manager: Harpal Adair MD PH,Ur 5.0 Normal 5.0-8.0 [facility] Comment on above: Performed By: #### U AX #### [facility] [place] [address] Rd Manager: Harpal Adair MD Protein Ql (U) Negative Normal NEG [facility] Comment on above: Performed By: #### U AX #### [facility] [address] [place] [address] [address] Manager: Harpal Adair MD Spec. Waban,Ur 1.020 Normal 1.005-1.030 [facility] Comment on above: Performed By: #### U AX #### [facility] [place] [address] Rd Manager: Harpal Adair MD Urobilinogen,Ur Normal Normal 0.0-1.0 [facility] Comment on above: Performed By: #### U AX #### [address] [address] [address] Manager: Harpal Adair MD ED Note-Physicianon 31-20 23 ED Note-Physician Basic Information Time Seen: Shama Macdonald PA-C 06/09/2023 15:45 Chief Complaint Pt presents to ED with complaints of MALDONADO onset today. History of Present Illness This patient presents to the emergency department chief complaint of maryam. She states that she has spent $10,000 in the last 2 weeks. She did see her psychiatrist at [facility] today and they are starting her [...] of care. (more content not included)... Normal [facility] Comment on above: Result Comment: Elec tronically Signed By: Shama Macdonald PA-C\.br\Date and Time Signed: 07/14/23 19:57 EDT\.br\Electronically Co-Signed By: Alexis Shukla DO\.br\Date and Time Co-Signed: 07/20/23 07:11 EST COVID Quick Testingon 2022 Result Negative [employer] Other Consultation Noteon 07-08-20 Consultation Note [id number]#1.00TIF F Normal [facility] Consent for Treatmenton 06-14 Consent for Treatment [id number]#1.00TIF F Normal [facility] ED Clinical Summaryon 2022 ED Clinical Summary (Inserted Image. Jordana ble to display) [place] [id number] ED Clinical Summary Person Information Name: SHAZIA CHOU [facility] Age: 32 Years : 1990 Sex: Female Language: Kuwaiti PCP: Jennie Durand DO Marital Status: Phone: [phone] MRN: Visit Id: Visit Reason: Headache; Neck [...] 15:29:14 07/02/2023 15:29:14 07/02/2023 15:29:14 ADDRESS: [address] [place] [phone] PHYS DOC NOTES: MEDICAL INFORMATION: Prescriptions Given: [...] EDUCATION INFORMATION: Instructions: Follow up: DIAGNOSIS: Normal [facility] ED Patient Education Noteon 07-02-2023 ED Patient Education Note Normal [facility] ED Patient Summaryon 023 ED Patient Summary (Inserted Image. Jordana ble to display) [place] [id number] Patient Discharge Instructions Person Information Name: SHAZIA CHOU Age: 32 Years Arrival Date: 07/02/2023 14:03:05 Discharge Diagnosis: Primary Care Physician: Jennie Durand DO Provider Information Primary Provider: Bakari Chester DO Advanced Sander Wooden Pencils:Merari Polanco PA-C The exam and treatment you received in the Emergency Department were for an urgent problem and are not intended as complete care. It is important that you follow up with a doctor, nurse practitioner, or physician?s classroom assistant for ongoing care. If your symptoms [...] opioids can be used to help relieve xvhijbrj-bh-aiuanm pain and are often prescribed following a [...] be struggling with addiction, tell your health senior care provider and ask for guidance or call SAM[employer]SA?S National Helpline at 1-524-879-HELP. v Source: [place] Department of Health and Human Services/Center for Disease Control & Prevention [facility] Medications Given: Medication Dose Route No medication (more content not included)... Normal [facility] Consultation Noteon 06-22-20 Consultation Note [id number]#1.00TIFF Normal [facility] Consultation Noteon 06-19-20 Consultation Note [id number]#1.00TIF F Normal [facility] CNPNon 06-15-2023 CNPN Telephone (NEADFV) -------- SHAZIA CHOU ([id number]) 1990 F Date Time Provider Department 06/15/23 EILEEN ALVAREZ During your visit today, we recorded the following information about you: Clara Durbin, MARCO 06/15/2023 4:57 PM Signed Received clinical notes and test results from [facility] ED visit from 06/10/23. 13 pages. Scanned to chart via DabKick. Routed to provider for review Glen Singh 07/03/2023 9:21 AM Signed Patient called stating that she is feeling lots of pressure and extreme pain on the head. Patient was in the ER yesterday and was discharge with no clarification of why she is felling this pain and pressure. She talked to PCP and they said she needed to see Dr. Alvarez for a follow up but she is not able to see her till 10/07/23. Patient is taking medication but is not alleviating the problem. Patient # [phone] SophiaJosh leyi 07/03/2023 12:15 PM Signed Per instructions from Dr. Alvarez. for patient, also sent message via iNeed. She needs to be back on diamox 500mg bid. Eileen Alvarez MD Allergies As of Date: 06/15/2023 Noted [...] 40 mg by mouth once daily. - rfeqrndjkmgx-rgq-vvkn-FA -vit K (BARIATRIC MULTIVITAMINS) 45 mg iron- [...] Encounter Status:Closed by GORGE BETANCUR on 07/03/23 Normal [facility] Discharge Instructionson Discharge Instructions [id number]#[id number] :127 Normal [facility] Acetamnphn Lvlon 06-09-2023 Acetaminophen [Mass/Vol] ug/mL Low 15-30 [facility] Comment on above: Performed By: #### 2 683769, 6552048, 6232245, 8027883, 7542505, [id number] ####[facility] [id number] [place] [address] Auto Diffon 06-09-2023 Basophils/100 WBC (Bld) 0.6 % Normal 0.0-2.0 [facility] Comment on above: Order Comment: Order Added by Discern Expert. Performed By: #### 2 395207, 1488290, 1431529, 6685502, 7943984, [id number] ####[address] [address] Basophils/Leukocytes Auto (Bld) [Pure # fraction] 0.0 E9/L Normal 0.0-0.2 [facility] Comment on above: Order Comment: Order Added by Discern Expert. Performed By: #### 2 322572, 4546336, 3041633, 3222361, 0906779, 07844632 ####[address] [address] Eosinophils/100 WBC (Bld) 1.9 % Normal 0.0-8.0 [facility] Comment on above: Order Comment: Order Added by Discern Expert. Performed By: #### 2 101103, 2701749, 0370594, 2501109, 3500833, 84624734 ####[address] [address] Eosinophils/Leukocyte s Auto (Bld) [Pure # fraction] 0.2 E9/L Normal 0.0-0.5 [facility] Comment on above: Order Comment: Order Added by Discern Expert. Performed By: #### 2 367333, 2363855, 0111903, 6468958, 1958057, 64060166 ####[address] [address] Lymphocytes/100 WBC (Bld) 23.4 % Normal 14.0-50.0 [facility] Comment on above: Order Comment: Order Added by Discern Expert. Performed By: #### 2 373921, 6652045, 2515395, 9797996, 2712240, 18127581 ####[address] [address] Lymphocytes/Leukocyte s Auto (Bld) [Pure # fraction] 2.0 E9/L Normal 1.0-4.0 [facility] Comment on above: Order Comment: Order Added by Discern Expert. Performed By: #### 2 281415, 0095937, 0911299, 8678607, 3677903, 39880060 ####[place] [address] [place] [address] Monocytes/100 WBC (Bld) 6.9 % Normal 4.0-14.0 [facility] Comment on above: Order Comment: Order Added by Discern Expert. Performed By: #### 2 253333, 2766109, 8931143, 1426492, 4217374, 11751472 ####[place] [address] [place] [address] Monocytes/Leukocytes Auto (Bld) [Pure # fraction] 0.6 E9/L Normal 0.2-1.0 [facility] Comment on above: Order Comment: Order Added by Discern Expert. Performed By: #### 2 383234, 1643675, 2936604, 4926977, 8017491, 10265830 ####[address] [address] Neutrophils/100 WBC (Bld) 67.2 % Normal 36.0-75.0 [facility] Comment on above: Order Comment: Order Added by Discern Expert. Performed By: #### 2 424139, 4380399, 8179179, 6117704, 9243116, 54552067 ####[place] [address] [place] [address] Neutrophils/Leukocyte s Auto (Bld) [Pure # fraction] 5.6 E9/L Normal 2.0-7.5 [facility] Comment on above: Order Comment: Order Added by Discern Expert. Performed By: #### 2 275360, 4104769, 2824047, 2981585, 2108017, 31509236 ####[place] [address] [place] [address] CBC w/ Auto Diffon 3 Erythrocyte distribution width (RBC) [Ratio] 18.2 % High 10.9-14.2 [facility] Comment on above: Performed By: #### 2 850906, 9063449, 8616766, 7121377, 2539940, 91808765 ####[address] [address] Hematocrit (Bld) [Volume fraction] 34.3 % Normal 34.0-46.0 [facility] Comment on above: Performed By: #### 2 319644, 8505611, 7093689, 2994800, 8486127, 23117972 ####[address] [address] Hemoglobin (Bld) [Mass/Vol] 11.5 g/dL Low 12.0-16.0 [facility] Comment on above: Performed By: #### 2 013920, 3850761, 8873285, 1311426, 9974559, 56885037 ####[place] [address]57 MCH (RBC) [Entitic mass] 30.6 pg Normal 27.0-34.0 [facility] Comment on above: Performed By: #### 2 875479, 3727016, 2254231, 6983497, 3074372, 29285301 ####[address] [address] MCHC (RBC) [Mass/Vol] 33.6 g/dL Normal 31.4-36.0 [facility] Comment on above: Performed By: #### 2 907161, 1181411, 3408059, 0448521, 8982207, 48738155 ####[address] [address] MCV (RBC) [Entitic vol] 91.0 fL Normal 80.0-100.0 [facility] Comment on above: Performed By: #### 2 532945, 9110255, 1686586, 4412656, 1691210, 17479450 ####[address] [address] Platelet mean volume (Bld) [Entitic vol] 9.8 fL Normal 6.4-10.8 [facility] Comment on above: Performed By: #### 2 583536, 7893325, 5940633, 3980201, 7467975, 61789307 ####[facility] [id number] [place] [address] Platelets (Bld) [#/Vol] 283.0 E9/L Normal 150.0-500.0 [facility] Comment on above: Performed By: #### 2 919527, 4202144, 5029966, 9940063, 1443616, 49783778 ####[address] [address] RBC (Bld) [#/Vol] 3.8 E12/L Low 4.3-5.9 [facility] Comment on above: Performed By: #### 2 107923, 0893637, 0830824, 4174464, 2587167, 45370002 ####[address] [address] WBC corrected for nucl RBC Auto (Bld) [#/Vol] 8.4 E9/L Normal 4.0-11.0 [facility] Comment on above: Performed By: #### 2 505005, 8669263, 1271394, 9623990, 0104168, 93145971 ####[place] [address] [place] [address] CMPon 06-09-2023 Albumin [Mass/Vol] 4.1 g/dL Normal 3.3-5.0 [facility] Comment on above: Performed By: #### 2 199887, 9520277, 0508293, 6621623, 6422497, 85729582 ####[place] [address] [place] [address] Albumin/Globulin (S) [Mass conc ratio] 1.3 Normal 1.1-2.2 [facility] Comment on above: Performed By: #### 2 254265, 6241517, 9844044, 9346193, 2287145, 08122454 ####[address] [place] [address] ALP [Catalytic activity/Vol] 58 Int._Unit/L Normal 21-98 [facility] Comment on above: Performed By: #### 2 991253, 4927236, 5065522, 2872423, 3824708, 01174443 ####[facility] [address] [place] [address] ALT No additional P-5'-P [Catalytic activity/Vol] 18 Int._Unit/L Normal 6-46 [facility] Comment on above: Performed By: #### 2 403381, 0842105, 9009373, 6000398, 5090807, 16711554 ####[facility] [address] [place] [address] AST [Catalytic activity/Vol] 20 Int._Unit/L Normal 5-43 [facility] Comment on above: Performed By: #### 2 898661, 6705270, 6331223, 5551273, 1133502, 28538163 ####[facility] [address] [place] [address] Bilirubin [Mass/Vol] 0.1 mg/dL Normal 0.0-1.1 [facility] Comment on above: Performed By: #### 2 669734, 7386722, 0693693, 5182597, 6476842, 31488009 ####[facility] [address] [place] [address] Creatinine [Mass/Vol] 0.6 mg/dL Normal 0.5-1.3 [facility] Comment on above: Performed By: #### 2 791444, 1508143, 4143730, 9399422, 1636973, 10924751 ####[facility] [address] [place] [address] Globulin (S) [Mass/Vol] 3.2 g/dL Normal 1.4-4.0 [facility] Comment on above: Performed By: #### 2 601023, 1254519, 5647925, 2873719, 4464457, 73494948 ####[facility] [address] [place] [address] Protein [Mass/Vol] 7.3 g/dL Normal 6.0-7.8 [facility] Comment on above: Performed By: #### 2 789963, 1855869, 2205168, 6230445, 3071758, 92660216 ####[facility] [address] [place] [address] Urea nitrogen [Mass/Vol] 15 mg/dL Normal 5-21 [facility] Comment on above: Performed By: #### 2 821801, 7420358, 9531901, 0515625, 6250823, 33603272 ####[facility] [address] [place] [address] Urea nitrogen/Creatinine [Mass ratio] 25 No Units High 10-20 [facility] Comment on above: Performed By: #### 2 130784, 1688073, 0791230, 6271751, 4035670, 90684132 ####[facility] [address] [place] [address] Anion gap [Moles/Vol] 13 mmol/L Normal 6-16 [facility] Comment on above: Performed By: #### 2 762898, 3203809, 6316637, 4420166, 5617032, 33168991 ####[facility] [address] [place] [address] Calcium [Mass/Vol] 9.3 mg/dL Normal 8.9-11.1 [facility] Comment on above: Performed By: #### 2 005824, 3786055, 1353705, 7315878, 1813059, 33282443 ####[facility] [address] [place] [address] Chloride [Moles/Vol] 107 mmol/L Normal 101-111 [facility] Comment on above: Performed By: #### 2 698318, 6448543, 4944201, 2896264, 9958252, 58348360 ####[facility] [address] [place] [address] CO2 [Moles/Vol] 23 mmol/L Normal 21-31 [facility] Comment on above: Performed By: #### 2 819934, 0187262, 7234552, 8302045, 5837188, 68397328 ####[facility] [address] [place] [address] Glucose [Mass/Vol] 91 mg/dL Normal 55-199 [facility] Comment on above: Result Comment: If t his glucose result represents a fasting glucose, interpretation should refer to the following reference range: 55-99 mg/dL Performed By: #### 2 542222, 6922505, 5661269, 0857712, 1562814, 52021625 ####[facility] [address] [place] [address] Potassium [Moles/Vol] 3.6 mmol/L Normal 3.5-5.3 [facility] Comment on above: Performed By: #### 2 738948, 7509528, 0916212, 3293989, 0192146, 39716175 ####[facility] [address] [place] [address] Sodium [Moles/Vol] 139 mmol/L Normal 135-145 [facility] Comment on above: Performed By: #### 2 443846, 6360005, 6908601, 5090715, 2881384, 29455250 ####[facility] [address] [place] [address] Consent for Treatmenton 05-16 Consent for Treatment [id number]: 127 Normal [facility] ED Clinical Summaryon 2022 ED Clinical Summary (Inserted Image. Ojrdana ble to display) [address] [address] ED Clinical Summary Person Information Name: SHAZIA CHOU [facility] Age: 32 Years : 1990 Sex: Female Language: Kuwaiti PCP: Jennie Durand DO Marital Status: Phone: [phone] MRN: Visit Id: Visit Reason: Headache; HEADACHE [...] 18:42:22 06/09/2023 18:42:22 06/09/2023 18:42:22 ADDRESS: [address] [place] [phone] PHYS DOC NOTES: MEDICAL INFORMATION: Prescriptions Given: [...] (at bedtime). PATIENT EDUCATION INFORMATION: Instructions: Paresthesia, Oeeh-oa-Feex; Migraine Headache, Xfnq-yw-Ovsr Follow up: With: Address: When: [facility] In 3 days 06/12/2023 With: Address: When: Jennie Durand [facility] Shakir Robertson, Mic , [facility] [id number] [facility] (1) In 3 days 06/12/2023 DIAGNOSIS: 1:Headache; 2:Paresthesia of arm Normal [facility] ED Patient Education Noteon 06-09-2023 ED Patient [...] liquor (44 mL). General instructions ? Take flij-pbp-dfiubnw and prescription medicines only as told by [...] provider. Document Revised: 05/12/2022 Document Reviewed: 05/12/2022 [employer] Patient Education ? 2022 [employer] Migraine Headache A migraine headache is [...] ? Tiredness. (more content not included)... Normal [facility] ED Patient Summaryon 023 ED Patient Summary (Inserted Image. Jordana ble to display) [place] [id number] Patient Discharge Instructions Person Information Name: SHAZIA CHOU Age: 32 Years Arrival Date: 06/09/2023 15:33:36 Discharge Diagnosis: 1:Headache; 2:Paresthesia of arm Primary Care Physician: Jennie Durand DO Provider Information Primary Provider: Alexis Shukla DO Advanced Sander Wooden Pencils:None The exam and treatment you received in the Emergency Department were for an urgent problem and are not intended as complete care. It is important that you follow up with a doctor, nurse practitioner, or physician?s classroom assistant for ongoing care. If your symptoms become worse or you do not improve as expected and you are unable to reach your usual health care provider, you should return to the Emergency Department. We are available 24 hours a day. SHAZIA CHOU has been given the following list of patient education materials, prescriptions and follow-up instructions: Follow-up Instructions: With: Address: When: [facility] In 3 days 06/12/2023 With: Address: When: Jennie Durand [facility] Mic [place] , [facility] [place], [place] [phone] [facility] (2) In 3 days 06/12/2023 In the event that this physician does not participate in your insurance network, please consult with your insurance company to find a nearby participating provider. Patient Education Materials: Paresthesia, Phwu-qo-Ahxw; Migraine Headache, Gfau-cn-Rswg A MESSAGE TO ALL PATIENTS REGARDING OPIOIDS PRESCRIPTION OPIOIDS: WHAT YOU NEED TO KNOW Prescription opioids can be used to help relieve tczpyesy-xv-ocvflq pain and are often prescribed following a [...] addiction, tell (more content not included)... Normal [facility] Ethanolon 06-09-2023 Ethanol [Mass/Vol] mg/dL Normal <=7 [facility] Comment on above: Performed By: #### 2 505454 ####[address] [place] [address] Salicylateon 06-09-2023 Salicylates [Mass/Vol] mg/dL Low 6- [facility] Comment on above: Performed By: #### 2 889018, 6778529, 0444130, 8844917, 0073310, 65018333 ####[facility] [address] [place] [address] U Drug Screenon 06-09-2023 Amphetamines Screen method >1000 ng/mL Ql (U) Negative Normal Negative [facility] Comment on above: Result Comment: Nega tive Cutoff: <1000 ng/mL Performed By: #### 2 973788 ####[facility] [address] [place] [address] Barbiturates Screen Ql (U) Negative Normal Negative [facility] Comment on above: Result Comment: Nega tive Cutoff: <200 ng/mL Performed By: #### 2 666586 ####[address] [address] Benzodiazepines Ql (U) Negative Normal Negative [facility] Comment on above: Result Comment: Nega tive Cutoff: <200 ng/mL Performed By: #### 2 117556 ####[facility] [address] [place] [address] Cocaine Ql (U) Negative Normal Negative [facility] Comment on above: Result Comment: Nega tive Cutoff: <300 ng/mL Performed By: #### 2 763207 ####[facility] [address] [place] [address] Opiates Screen Ql (U) Negative Normal Negative [facility] Comment on above: Result Comment: Nega tive Cutoff: <300 ng/mL Performed By: #### 2 258142 ####[facility] [address] [place] [address] Phencyclidine Screen method >25 ng/mL Ql (U) Negative Normal Negative [facility] Comment on above: Result Comment: Nega tive Cutoff: <25 ng/mL These drug screen results are to be used for medical (i.e., treatment) purposes only. Unconfirmed drug screening results must not be used for non-medical purposes (e.g., employment testing, legal testing). Performed By: #### 2 112146 ####[facility] [address] [place] [address] Tetrahydrocannabinol Screen method >50 ng/mL Ql (U) Negative Normal Negative [facility] Comment on above: Result Comment: Nega tive Cutoff: <50 ng/mL Performed By: #### 2 680084 ####[facility] [address] [place] [address] UA With Cult Reflexon 2022 Bilirubin Ql (U) Negative Normal Negative [facility] Comment on above: Performed By: #### 1 5642972 #### [facility] [address] [place] [address] Clarity (U) CLEAR Normal Clear [facility] Comment on above: Performed By: #### 1 0581405 #### [facility] [address] [place] [address] Color (U) YELLOW Normal Yellow [facility] Comment on above: Performed By: #### 1 2837693 #### [facility] [address] [place] [address] Crystals LM Ql (Urine sed) Present Normal [facility] Comment on above: Performed By: #### 1 7041456 #### [facility] [address] [place] [address] Epithelial cells.squamous LM.HPF (Urine sed) [#/Area] 0-2 Normal 0-2 [facility] Comment on above: Performed By: #### 1 5548080 #### [facility] [address] [place] [address] Glucose Test strip (U) [Mass/Vol] Negative Normal Negative [facility] Comment on above: Performed By: #### 1 3669667 #### [facility] [address] [place] [address] Hemoglobin Ql (U) Negative Normal Negative [facility] Comment on above: Performed By: #### 1 3387259 #### [facility] [address] [place] [address] Ketones (U) [Mass/Vol] Negative Normal Negative [facility] Comment on above: Performed By: #### 1 0452374 #### [facility] [address] [place] [address] [place] Lear.plasma/Lithiu m.RBC (Bld) [Mass ratio] 0-3 Normal 0-3 [facility] Comment on above: Performed By: #### 1 8167730 #### [facility] [address] [place] [address] Nitrite Ql (U) Negative Normal Negative [facility] Comment on above: Performed By: #### 1 7147373 #### [facility] [address] [place] [address] pH (U) 6.0 [pH] Invalid Interpretation Code 5.0-9.0 [facility] Comment on above: Performed By: #### 1 0430406 #### [facility] [address] [place] [address] Protein (U) [Mass/Vol] Negative Normal Negative [facility] Comment on above: Performed By: #### 1 0633846 #### [facility] [address] [place] [address] Specific gravity (U) [Rel density] 1.010 Invalid Interpretation Code 1.005-1.030 [facility] Comment on above: Performed By: #### 1 9685307 #### [facility] [address] [place] [address] Type of Urine collection method Clean Catch Normal [facility] Comment on above: Performed By: #### 1 6752245 #### [facility] [address] [place] [address] Urobilinogen Qn (U) 0.2 {Lucila'U}/dL Normal 0.0-1.0 [facility] Comment on above: Performed By: #### 1 4539548 #### [facility] [address] [place] [address] WBC Auto Ql (U) Negative Normal Negative [facility] Comment on above: Performed By: #### 1 6637727 #### [facility] [address] [place] [address] WBC LM.HPF (Urine sed) [#/Area] 0-5 Normal 0-5 [facility] Comment on above: Performed By: #### 1 3986090 #### [facility] [address] [place] [address] eGFRon 06-09-2023 GFR/1.73 sq M.predicted among non-blacks MDRD (S/P/Bld) [Vol rate/Area] 121 mL/min/1.73 m2 Normal >=59 [facility] Comment on above: Order Comment: Order added by Discern Expert. Result Comment: Hog Grader gurpreet kidney disease could be indicated at eGFR's of less than 60 mL/min/1.73m2. Kidney failure is indicated at less than 15 mL/min/1.73m2. Performed By: #### 2 563193, 9144804, 5256473, 5524546, 2706248, 70926112 ####[facility] [address] [place] [address] Vit Aon 03-24-2023 Retinol [Mass/Vol] 42.9 microgram/dL Invalid Interpretation Code 18.9-57.3 [facility] Comment on above: Result Comment: Refe rence intervals for vitamin A determined from [facility] internal studies. Individuals with vitamin A less than 20 ug/dL are considered vitamin A deficient and those with serum concentrations less than 10 ug/dL are considered severely deficient. This test was developed and its performance characteristics determined by [employer]. It has not been cleared or approved by the Food and Drug Administration. Performed at: [address] [id number] MD Shorty Rodríguez Performed By: #### 2 641955, 14762595, 8543839, 9566745, 90892824, 37656127, 471754043, 6362432, 0508427, 42626509, 8013066, 2430285, 327820373, 95436037, 4659994, 2372941, 2377068, 8432081 ####[facility] [address] [place] [address] Vit B1on 03-24-2023 Thiamine (Bld) [Moles/Vol] 171.7 nmol/L Invalid Interpretation Code 66.5-200.0 [facility] Comment on above: Result Comment: This test was developed and its performance characteristics determined by [facility]. It has not been cleared or approved by the Food and Drug Administration. Performed at: [address] [id number] MD Shorty Rodríguez Performed By: #### 2 591207, 35012582, 1003831, 2941233, 10496553, 98693398, 904246010, 8311013, 1848505, 47601375, 0960494, 4321461, 491080839, 62964431, 0209286, 9427310, 8300417, 6676428 ####[facility] [address] [place] [address] Zinc Lvlon 03-24-2023 Zinc [Mass/Vol] 85 microgram/dL Invalid Interpretation Code 44-115 [facility] Comment on above: Result Comment: This test was developed and its performance characteristics determined by [facility]. It has not been cleared or approved by the Food and Drug Administration. Detection Limit = 5 Performed at: [address] [id number] MD Shorty Rodríguez Performed By: #### 2 293136, 17135576, 6365571, 3192121, 62811499, 85786542, 300734329, 4972150, 7088419, 37574639, 7745813, 8723616, 043998477, 29110858, 0352220, 9027177, 1975028, 6143872 ####[facility] [address] [place] [address] PTH Intacton 03-20-2023 Parathyrin.intact [Mass/Vol] 17 pg/mL Invalid Interpretation Code 15-65 [facility] Comment on above: Result Comment: Perf ormed at: [facility] [address] [place], [place] [id number] PhD Cordelia Madera Performed By: #### 1 7439066 ####[facility] [address] [place] [address] Auto Diffon 03-19-2023 Basophils/100 WBC (Bld) 1.1 % Normal 0.0-2.0 [facility] Comment on above: Order Comment: Order Added by Discern Expert. Performed By: #### 2 220359, 49290919, 2180905, 2367824, 12507568, 36685210, 139234019, 7010767, 5939351, 03727167, 6868284, 9893084, 801208017, 03880910, 7779885, 8597340, 4989320, 8601377 ####[facility] [address] [place] [address] Basophils/Leukocytes Auto (Bld) [Pure # fraction] 0.1 E9/L Normal 0.0-0.2 [facility] Comment on above: Order Comment: Order Added by Discern Expert. Performed By: #### 2 108307, 62027753, 3162363, 4509575, 77264755, 89153128, 490363896, 1813329, 6982996, 79986637, 9870726, 3945686, 479443744, 22216707, 8466187, 5264332, 7103193, 5440599 ####[facility] [address] [place] [address] Eosinophils/100 WBC (Bld) 4.1 % Normal 0.0-8.0 [facility] Comment on above: Order Comment: Order Added by Discern Expert. Performed By: #### 2 707235, 36799105, 3335657, 9918575, 25925595, 71012128, 674305439, 7783531, 6376298, 45577263, 7389198, 1107914, 255964298, 48270768, 9246151, 9045168, 9568805, 7579727 ####[facility] [address] [place] [address] Eosinophils/Leukocyte s Auto (Bld) [Pure # fraction] 0.4 E9/L Normal 0.0-0.5 [facility] Comment on above: Order Comment: Order Added by Discern Expert. Performed By: #### 2 114526, 02714486, 0538081, 8980151, 58116669, 86758346, 216405369, 7364601, 0626675, 46686658, 2895188, 8834577, 253186060, 67933889, 9483449, 0381412, 9110378, 8665412 ####[address] [place] [address] Lymphocytes/100 WBC (Bld) 20.5 % Normal 14.0-50.0 [facility] Comment on above: Order Comment: Order Added by Discern Expert. Performed By: #### 2 340965, 68603237, 6421899, 1459802, 35735182, 57577916, 590311079, 7420509, 4102199, 54724124, 8260604, 1184694, 718027787, 87988142, 5348904, 9821006, 9395701, 0518123 ####[address] [place] [address] Lymphocytes/Leukocyte s Auto (Bld) [Pure # fraction] 2.1 E9/L Normal 1.0-4.0 [facility] Comment on above: Order Comment: Order Added by Discern Expert. Performed By: #### 2 846128, 22586379, 0517619, 9385639, 94115935, 31016284, 510557794, 5696649, 5258997, 14239474, 3554335, 2634443, 647400445, 24435579, 1529811, 7588317, 7004434, 0187929 ####[facility] [address] [place] [address] Monocytes/100 WBC (Bld) 7.6 % Normal 4.0-14.0 [facility] Comment on above: Order Comment: Order Added by Discern Expert. Performed By: #### 2 662030, 70489994, 1095846, 6690139, 97500209, 64390773, 198579268, 1622735, 1505032, 58877874, 8660807, 1491248, 669527248, 64830377, 6786179, 3888404, 3087840, 3506442 ####[address] [place] [address] Monocytes/Leukocytes Auto (Bld) [Pure # fraction] 0.8 E9/L Normal 0.2-1.0 [facility] Comment on above: Order Comment: Order Added by Discern Expert. Performed By: #### 2 981712, 75775465, 3059095, 8463369, 06805161, 96043572, 670340647, 0643063, 0091290, 85228144, 6968117, 2460556, 784454127, 54847761, 2939419, 7486490, 0671185, 1236776 ####[address] [place] [address] Neutrophils/100 WBC (Bld) 66.7 % Normal 36.0-75.0 [facility] Comment on above: Order Comment: Order Added by Discern Expert. Performed By: #### 2 285946, 18091703, 6386029, 0209355, 21206080, 69396849, 739510397, 2642868, 9734035, 77536624, 5579276, 4024317, 859736595, 76429418, 2233945, 0852747, 4097726, 9336044 ####[address] [place] [address] Neutrophils/Leukocyte s Auto (Bld) [Pure # fraction] 6.8 E9/L Normal 2.0-7.5 [facility] Comment on above: Order Comment: Order Added by Discern Expert. Performed By: #### 2 276629, 14119745, 1627525, 1539391, 28936951, 79271092, 382173478, 8175288, 8628885, 65207144, 4614624, 6359725, 524394657, 01203635, 8963545, 1452342, 0496683, 7098636 ####[address] [place] [address] CBC w/ Auto Diffon 3 Erythrocyte distribution width (RBC) [Ratio] 16.0 % High 10.9-14.2 [facility] Comment on above: Performed By: #### 2 257889, 18239058, 7079803, 5457986, 47284098, 38552543, 236267116, 0488854, 1013046, 55997175, 9276740, 6159381, 860234449, 89948922, 0988682, 7866303, 1286286, 3411764 ####[address] [place] [address] Hematocrit (Bld) [Volume fraction] 37.1 % Normal 34.0-46.0 [facility] Comment on above: Performed By: #### 2 851873, 63749710, 5298793, 6726009, 63828877, 64507365, 743934184, 4897367, 4764844, 02225147, 4828052, 3147676, 667158743, 58898280, 6188879, 7220462, 7702794, 2471423 ####[address] [place] [address] Hemoglobin (Bld) [Mass/Vol] 12.6 g/dL Normal 12.0-16.0 [facility] Comment on above: Performed By: #### 2 953949, 65310274, 8377212, 9054948, 11382060, 16639222, 916414138, 2487406, 9958191, 96404975, 4224778, 5126519, 714999492, 62655108, 9455899, 8301336, 3517298, 0871304 ####[facility] [address] [place] [address] MCH (RBC) [Entitic mass] 31.2 pg Normal 27.0-34.0 [facility] Comment on above: Performed By: #### 2 603956, 37353996, 0759499, 8420144, 99920311, 72649054, 735660923, 6926638, 6263030, 31073714, 2439535, 8686518, 159054915, 22597400, 5285015, 6363907, 5874083, 1439459 ####[facility] [address] [place] [address] MCHC (RBC) [Mass/Vol] 33.9 g/dL Normal 31.4-36.0 [facility] Comment on above: Performed By: #### 2 024639, 63186273, 3496910, 3206033, 81641642, 86934262, 384064607, 5835678, 2729535, 72507306, 6947600, 1483599, 501447324, 09934792, 8512401, 5469563, 5971533, 9912720 ####[address] [place] [address] MCV (RBC) [Entitic vol] 92.0 fL Normal 80.0-100.0 [facility] Comment on above: Performed By: #### 2 490855, 84388837, 0069128, 2219005, 54337802, 34587372, 653447026, 4137549, 1510935, 18230613, 7106519, 3421950, 893470339, 58600331, 4323199, 2285984, 7169760, 3618563 ####[address] [place] [address] Platelet mean volume (Bld) [Entitic vol] 9.8 fL Normal 6.4-10.8 [facility] Comment on above: Performed By: #### 2 421896, 86055982, 5420271, 8032814, 97361975, 09211584, 303178321, 9093516, 5054314, 02556628, 6383409, 9574274, 619605884, 93949522, 5105711, 1230642, 0441044, 3081570 ####[facility] [address] [place] [address] Platelets (Bld) [#/Vol] 369.0 E9/L Normal 150.0-500.0 [facility] Comment on above: Performed By: #### 2 327879, 45994563, 3198894, 0859789, 94642116, 22363387, 555470812, 4154976, 2185333, 07428431, 3728334, 9585378, 155923905, 12517234, 8205830, 3829424, 5648438, 1548754 ####[facility] [address] [place] [address] RBC (Bld) [#/Vol] 4.0 E12/L Low 4.3-5.9 [facility] Comment on above: Performed By: #### 2 015059, 26573321, 8976175, 5648013, 78916930, 69830480, 664179419, 9484445, 8145377, 21877748, 9379414, 8853429, 281764583, 40567143, 2868388, 9227894, 3331566, 8233990 ####[address] [place] [address] WBC corrected for nucl RBC Auto (Bld) [#/Vol] 10.1 E9/L Normal 4.0-11.0 [facility] Comment on above: Performed By: #### 2 322299, 25195556, 9135575, 8682851, 64538139, 09828715, 599227659, 9625009, 0780073, 31695175, 1599891, 2801593, 284078599, 13517578, 7971279, 6553981, 7240139, 6630757 ####[place] [facility] [id number] CHEMISTRYOrdered By: SYSTEM SYSTEM on 03-19-2023 25-hydroxyvitamin [...] (Bld) [Mass fraction] 5.8 % Normal <=5.9% [facility] ChemAutoSS CMPon 03-19-2023 Albumin [Mass/Vol] 4.0 g/dL Normal 3.3-5.0 [facility] Comment on above: Performed By: #### 2 689928, 01101511, 8056009, 0652276, 57336725, 16161983, 747849275, 3214385, 9531622, 73198778, 1639989, 6173406, 827614488, 80553634, 7671591, 7350777, 4803588, 6314129 ####[facility] [address] [place] [address] Albumin/Globulin (S) [Mass conc ratio] 1.2 Normal 1.1-2.2 [facility] Comment on above: Performed By: #### 2 623774, 52577416, 5207559, 4961551, 41569442, 33555944, 337394392, 1364185, 1583164, 00341882, 4865648, 3414176, 903063593, 70887350, 9102854, 5650384, 2952577, 5907031 ####[facility] [address] [place] [address] ALP [Catalytic activity/Vol] 61 Int._Unit/L Normal 21-98 [facility] Comment on above: Performed By: #### 2 807539, 99931463, 7226754, 0805172, 34457802, 59626792, 900839491, 4513285, 5132686, 09910406, 6242004, 0913876, 375569594, 12969419, 6407890, 8199847, 1493268, 0599783 ####[facility] [address] [place] [address] ALT No additional P-5'-P [Catalytic activity/Vol] 17 Int._Unit/L Normal 6-46 [facility] Comment on above: Performed By: #### 2 261558, 85407007, 4158798, 4763728, 65060603, 07398747, 335578450, 6325715, 9300983, 70066588, 3651955, 9157132, 990034463, 85760144, 3683214, 0852068, 1437751, 7337189 ####[facility] [address] [place] [address] Anion gap [Moles/Vol] 9 mmol/L Normal 6-16 [facility] Comment on above: Performed By: #### 2 509188, 59424025, 2429603, 2580726, 11752177, 46929349, 354767610, 5764454, 0199751, 62877039, 6666318, 8243141, 667100743, 42484405, 6828308, 6350646, 4277591, 5447953 ####[facility] [address] [place] [address] AST [Catalytic activity/Vol] 20 Int._Unit/L Normal 5-43 [facility] Comment on above: Performed By: #### 2 818132, 74329324, 4414752, 2075123, 94375184, 97450998, 087383865, 2991972, 2158027, 63780626, 3406939, 3184198, 110538784, 05238207, 5815341, 3220804, 2214837, 2093650 ####[facility] [address] [place] [address] Bilirubin [Mass/Vol] 0.4 mg/dL Normal 0.0-1.1 [facility] Comment on above: Performed By: #### 2 801144, 86115890, 4051164, 8765109, 66069594, 73029185, 448638924, 8625577, 4025859, 93514930, 1753893, 7990304, 381201070, 24497123, 2350932, 5537070, 6194492, 7422298 ####[address] [address] Calcium [Mass/Vol] 9.2 mg/dL Normal 8.9-11.1 [facility] Comment on above: Performed By: #### 2 843714, 50654427, 9295968, 1618268, 34464931, 79553060, 710798233, 9837716, 7314896, 97049513, 3911596, 3759822, 797004333, 51822276, 3983131, 2935496, 8913298, 4176692 ####[facility] [address] [place] [address] Chloride [Moles/Vol] 113 mmol/L High 101-111 [facility] Comment on above: Performed By: #### 2 682367, 88302042, 1377887, 4414918, 94366457, 29670150, 683151192, 8235684, 6761420, 70269853, 5217775, 2469447, 276385474, 08093811, 0900835, 3114202, 9232707, 0371253 ####[facility] [address] [place] [address] CO2 [Moles/Vol] 22 mmol/L Normal 21-31 [facility] Comment on above: Performed By: #### 2 133643, 10060026, 7892687, 3086145, 90632088, 03653155, 454008027, 9215022, 9164482, 82705266, 1106577, 4887791, 361851021, 56019393, 2112303, 4005869, 1455794, 8974709 ####[facility] [address] [place] [address] Creatinine [Mass/Vol] 0.7 mg/dL Normal 0.5-1.3 [facility] Comment on above: Performed By: #### 2 529381, 51121642, 6407653, 0748129, 42688425, 48650501, 087211653, 4228274, 6962166, 62303601, 4560456, 7382065, 331927021, 09355067, 7561036, 4838837, 1887812, 6969320 ####[facility] [address] [place] [address] Globulin (S) [Mass/Vol] 3.2 g/dL Normal 1.4-4.0 [facility] Comment on above: Performed By: #### 2 738111, 46080614, 7175936, 6492727, 61773642, 06780144, 262042438, 5754022, 2280115, 73718945, 2764156, 8806494, 975166569, 45923612, 5259499, 2207883, 5524653, 8383358 ####[facility] [address] [place] [address] Glucose [Mass/Vol] 103 mg/dL Normal 55-199 [facility] Comment on above: Result Comment: If t his glucose result represents a fasting glucose, interpretation should refer to the following reference range: 55-99 mg/dL Performed By: #### 2 901732, 00599719, 5340275, 5365371, 71283044, 41941207, 275308494, 2521337, 3409370, 71685807, 1630157, 5786188, 417149552, 49384887, 0209547, 1794814, 6962874, 9054885 ####[facility] [address] [place] [address] Potassium [Moles/Vol] 3.8 mmol/L Normal 3.5-5.3 [facility] Comment on above: Performed By: #### 2 246219, 50438896, 7981770, 9825044, 03328265, 10701712, 236124472, 4663880, 7833922, 28789339, 4515536, 7589424, 711780105, 62680002, 8877365, 4384157, 5075173, 6318355 ####[facility] [address] [place] [address] Protein [Mass/Vol] 7.2 g/dL Normal 6.0-7.8 [facility] Comment on above: Performed By: #### 2 516595, 58940874, 3693761, 0731603, 43397653, 35127738, 572194345, 3701338, 0750605, 33837961, 0676817, 2202083, 008468519, 07472017, 3767659, 5781292, 7757011, 1609813 ####[facility] [address] [place] [address] Sodium [Moles/Vol] 140 mmol/L Normal 135-145 [facility] Comment on above: Performed By: #### 2 221351, 35241892, 1589605, 4514738, 52366913, 41316308, 065988642, 2707478, 4349407, 08066078, 3732784, 0470361, 332521908, 29229954, 4946463, 9148634, 1519685, 6709130 ####[facility] [address] [place] [address] Urea nitrogen [Mass/Vol] 12 mg/dL Normal 5-21 [facility] Comment on above: Performed By: #### 2 869612, 91763125, 1820216, 2340884, 56802241, 07428730, 542533221, 7650864, 0651431, 15575856, 9507608, 4672998, 533027100, 34819215, 0247251, 1025048, 7271402, 6411097 ####[facility] [address] [place] [address] Urea nitrogen/Creatinine [Mass ratio] 17 No Units Normal 10-20 [facility] Comment on above: Performed By: #### 2 274563, 37843751, 7383330, 3762997, 29078398, 19631031, 313331220, 4816901, 3801670, 28172432, 0822859, 1656680, 974511358, 65952776, 6066098, 0765326, 9959283, 8268424 ####[facility] [address] [place] [address] Consent for Treatmenton 07-0 Consent for Treatment [id number]: 127 Normal [facility] Ferritinon 03-19-2023 Ferritin [Mass/Vol] 6 ng/mL Low 11-307 [facility] Comment on above: Result Comment: NORM ALS MEN <30 YRS 16-132 ng/mL MEN >30 YRS 8-338 ng/mL WOMEN (PREMEN) 6-104 ng/mL WOMEN (POSTMEN) 12-210 ng/mL Performed By: #### 2 167501, 54436758, 5223852, 4332804, 41538152, 93468625, 040303437, 6470209, 5561591, 45180431, 2902938, 8309149, 891568445, 60445196, 7551849, 0318373, 3294507, 0307529 ####[facility] [address] [place] [address] Folateon 03-19-2023 Folate [Mass/Vol] 15.6 ng/mL Normal >=6.7 [facility] Comment on above: Performed By: #### 2 363706, 89209986, 7150377, 4531458, 10537970, 81101878, 000276751, 5016688, 4115518, 28823560, 7305711, 7639293, 622014481, 94982822, 5231297, 0440437, 2683563, 8123718 ####[facility] [address] [place] [address] Free T4on 03-19-2023 Free T4 [Mass/Vol] 0.88 ng/dL Normal 0.58-1.64 [facility] Comment on above: Performed By: #### 2 153476, 28480784, 6393421, 6001346, 42331552, 03907568, 932960113, 2304488, 8082406, 43929997, 1102128, 1143586, 172151266, 55858006, 0012733, 5192722, 5859159, 4374489 ####[facility] [address] [place] [address] HEMATOLOGYOrdered By: SYSTEM SYSTEM on 03-19-2023 Basophils/100 [...] 31.2 pg Normal 27.0 - 34.0 pg FT HemeAutoSS MCHC (RBC) [Mass/Vol] 33.9 g/dL Normal [...] 10.1 E9/L Normal 4.0 - 11.0 E9/L FT HemeAutoSS EmvX3zts 03-19-2023 HbA1c (Bld) [Mass fraction] 5.8 % Normal <=5.9 [facility] Comment on above: Performed By: #### 2 026089, 53347163, 5170840, 2991855, 90214613, 69840309, 083540913, 9734601, 9639667, 47184133, 4494479, 4428744, 955374462, 94919333, 5103779, 7654370, 3661455, 6768630 ####[facility] [address] [place] [address] Ironon 03-19-2023 Iron [Mass/Vol] 69 microgram/dL Normal 35-153 [facility] Comment on above: Performed By: #### 2 376755, 92102669, 6171123, 3113366, 06983076, 58729939, 993396379, 7684259, 6838206, 59807270, 3651831, 9256295, 742775831, 24117718, 2610754, 5594145, 5859790, 3351077 ####[facility] [address] [place] [address] Lipid Panelon 03-19-2023 Cholesterol [Mass/Vol] 167 mg/dL Normal 120-200 [facility] Comment on above: Performed By: #### 2 409349, 62880409, 0973087, 7388800, 38593764, 17825093, 786604750, 3692233, 9236528, 02618226, 0239450, 5112586, 752425528, 73740627, 8440796, 0428204, 7579353, 0481318 ####[facility] [address] [place] [address] Cholesterol in HDL [Mass/Vol] 72 mg/dL Invalid Interpretation Code [facility] Comment on above: Result Comment: HDL > or equal to 60 mg/dL: Low cardiovascular risk HDL < 40 mg/dL : High cardiovascular risk Performed By: #### 2 950089, 47147024, 4343736, 0752561, 36300041, 87449807, 232647762, 5577156, 0332032, 21399914, 4910215, 6418408, 899697444, 75144255, 9796188, 5330838, 6251536, 1828185 ####[facility] [address] [place] [address] Cholesterol in LDL [Mass/Vol] 72 mg/dL Normal <=129 [facility] Comment on above: Performed By: #### 2 339750, 92955693, 9028906, 3848409, 12362225, 39490517, 663463858, 2740671, 6897488, 33554280, 7575937, 8026072, 568081732, 95694939, 1771403, 8239367, 9787904, 2463381 ####[facility] [address] [place] [address] Cholesterol in VLDL [Mass/Vol] 14 mg/dL Normal 7-40 [facility] Comment on above: Performed By: #### 2 158637, 19603468, 3751237, 1227137, 86073649, 75810976, 560863509, 2225988, 0889923, 36510158, 3271280, 9819248, 600523123, 98254492, 9051503, 4809963, 7835144, 0819116 ####[facility] [address] [place] [address] Triglyceride [Mass/Vol] 69 mg/dL Normal <=149 [facility] Comment on above: Performed By: #### 2 653887, 15855079, 5500216, 3689804, 31346236, 99432297, 778053185, 2825437, 7285129, 01625194, 0293099, 2770664, 449054826, 92117154, 1717731, 7261641, 0830854, 6281508 ####[address] [place] [address] Magnesiumon 03-19-2023 Magnesium [Mass/Vol] 2.0 mg/dL Normal 1.3-2.4 [facility] Comment on above: Performed By: #### 2 708234, 15186580, 9008115, 5948493, 21819052, 99740503, 823086644, 4513182, 7423454, 34798749, 9441425, 8866162, 749224322, 83591190, 6587737, 2253576, 7374394, 2982954 ####[address] [place] [address] Physician Orderon 03-19-2023 Physician Order [id number]#[id number] :127 Normal [facility] TIBC Calculatedon 03-19-2023 Iron binding capacity [Mass/Vol] 423 microgram/dL High 250-400 [facility] Comment on above: Performed By: #### 2 312672, 90682273, 6833112, 0731053, 50708697, 52915216, 738677860, 5798160, 0277500, 22624739, 0974235, 5124757, 473943443, 63342961, 9385463, 5251318, 8271149, 5227193 ####[facility] [address] [place] [address] Transferrin [Mass/Vol] 302 mg/dL Normal 200-370 [facility] Comment on above: Performed By: #### 2 069045, 24715335, 3487704, 7831494, 75288373, 38266451, 968969700, 5192670, 6819578, 66561727, 8878775, 7104445, 404093679, 15964446, 2607754, 6448998, 1882308, 2007063 ####[facility] [address] [place] [address] TSHon 03-19-2023 TSH Qn 0.61 m[IU]/L Normal 0.34-5.60 [facility] Comment on above: Performed By: #### 2 585267, 94470075, 5301549, 6960351, 59922188, 53454406, 510652500, 8406671, 1488971, 25487229, 5600155, 2539481, 991414709, 44803171, 7909741, 6665382, 9115630, 8339624 ####[facility] [address] [place] [address] Vit B12on 03-19-2023 Cobalamin (Vitamin B12) [Mass/Vol] 357 pg/mL Normal 50-1500 [facility] Comment on above: Performed By: #### 2 605639, 39423987, 8565398, 9075958, 42391369, 74751476, 651394258, 8948265, 2969223, 69950410, 8629588, 6163980, 825842376, 48472261, 4498895, 6497251, 2329393, 9994830 ####[facility] [address] [place] [address] Vitamin D 25 Hydroxyon 03-19 25-hydroxyvitamin D3 [Mass/Vol] 43.1 ng/mL Normal 30.0-100.0 [facility] Comment on above: Result Comment: Vit alberto D deficiency has been defined as a level of serum 25-OH vitamin D less than 20 ng/mL (1,2) by the [place] of Medicine and an Endocrine Society practice guideline. The Endocrine Society further defined vitamin D insufficiency as a level between 21 and 29 ng/mL (2). 1. IOM ([place] of Medicine). 2010. Dietary reference intakes for calcium and D. [place]: The National Academies Press. 2. Willard MF, Luisa HUBBARD, Nestor MALDONADO, et al. Evaluation, treatment, and prevention of vitamin D deficiency: an Endocrine Society clinical practice guideline. JCEM. 2010; 96 (7):1911-30. Performed By: #### 2 275300, 31673649, 8610818, 7797796, 49589996, 38841411, 229702013, 1976910, 1698411, 35168341, 9233425, 4603946, 928818493, 73880676, 8120370, 9029553, 5642656, 5742671 ####[facility] [address] [place] [address] eGFRon 03-19-2023 GFR/1.73 sq M.predicted among non-blacks MDRD (S/P/Bld) [Vol rate/Area] 116 mL/min/1.73 m2 Normal >=59 [facility] Comment on above: Order Comment: Order added by Discern Expert. Result Comment: Hog Grader gurpreet kidney disease could be indicated at eGFR's of less than 60 mL/min/1.73m2. Kidney failure is indicated at less than 15 mL/min/1.73m2. Performed By: #### 2 983905, 13993703, 7128943, 6404659, 37796315, 54193608, 987599041, 1040228, 3630303, 27461677, 7309554, 9767390, 511649159, 87050822, 3595540, 1006498, 3736901, 2707441 ####[facility] [address] [place] [address] MRA Head veins WO and W cont rast Ramón 01-29-2023 IMPRESSION: Unremarkable MRV head with and without contrast. Assistant Construction Superintendent: WILLIAM Transcribe Date/Time: Jan 29 2023 2:40P Dictated by : JENNIFER RUVALCABA MD This examination was interpreted and the report reviewed and electronically signed by: JENNIFER RUVALCABA MD on Jan 29 2023 2:44PM [facility] DIVISION OF RADIOLOGY * * *Final Report* * * DATE OF EXAM: Jan 29 2023 1:10PM [facility] 0336 - MRV BRAIN WO/W IVCON / PROCEDURE REASON: Idiopathic intracranial hypertension * * * * Physician Interpretation * * * * EXAMINATION: MRV BRAIN WO/W IVCON CLINICAL HISTORY: Idiopathic intracranial hypertension. TECHNIQUE: Intracranial 2-D rwvc-qq-efkzbq and postcontrast MRV with post-processing performed at the modality and 2D multiplanar and 3D maximum intensity projections were created, reviewed and archived. Contrast dose: 17 mL Dotarem administered intravenously. MQ: MRAB_4 COMPARISON: None. RESULT: INTRACRANIAL MRV: There is no evidence of significant narrowing, occlusion, or thrombosis of the dural venous sinuses. Note is made of a partially empty sella. DIVISION OF RADIOLOGY Provider, [facility] - 01/29/2023 * * *Final Report* * * DATE OF EXAM: Jan 29 2023 1:10PM [facility] 0336 - MRV BRAIN WO/W IVCON / PROCEDURE REASON: Idiopathic intracranial hypertension * * * * Physician Interpretation * * * * EXAMINATION: MRV BRAIN WO/W IVCON CLINICAL HISTORY: Idiopathic intracranial hypertension. TECHNIQUE: Intracranial 2-D qupx-je-mtevvv and postcontrast MRV with post-processing performed at [...] Unremarkable MRV head with and without contrast. Assistant Construction Superintendent: WILLIAM Transcribe Date/Time: Jan 29 2023 2:40P Dictated by : JENNIFER RUVALCABA MD This examination was interpreted and the report reviewed and electronically signed by: JENNIFER RUVALCABA MD on Jan 29 2023 2:44PM EST [facility] Radiology Study observation (narrative) [facility] MRA Head veins WO and W cont rast IVOrdered By: Ccf Provider on 01-29-2023 [facility] CHEMISTRYOrdered By: SYSTEM SYSTEM on 01-15-2023 Albumin [...] 99 mL/min/1.73 m2 Normal >=59mL/min/1 .73 m2 FT Chem S Globulin (S) [Mass/Vol] 3.0 g/dL [...] hCG Ql Negative (01/15/23 11:31 AM) Normal [facility] Man Sero URINALYSISOrdered By: Jacki santana on [...] PM) Normal Negative [facility] UA Auto SS [place] Lear.plasma/Lithiu m.RBC (Bld) [Mass ratio] 0-3 /HPF Normal 0-3/HPF [facility] UA Auto SS Nitrite Ql (U) Negative (01/15/23 12:51 PM) Normal Negative [facility] UA Auto SS pH (U) 7.5 *NA* (01/15/23 12:51 PM) Invalid Interpretation Code 5.0 - 9.0 [facility] Auto SS Protein (U) [Mass/Vol] Negative (01/15/23 12:51 PM) Normal Negative [facility] UA Auto SS Specific gravity (U) [Rel density] 1.015 *NA* (01/15/23 12:51 PM) Invalid Interpretation Code 1.005 - 1.030 [facility] UA Auto SS UA Spec Desc Clean Catch (01/15/23 12:51 PM) Normal [facility] UA Auto SS Urobilinogen Qn (U) 0.6462401 {Lucila'U}/dL Normal 0.0 - 1.0 EU/dL [facility] UA Auto SS WBC Auto Ql (U) 1+ *ABN* (01/15/23 12:51 PM) Invalid Interpretation Code Negative [facility] UA Auto SS WBC LM.HPF (Urine sed) [#/Area] 0-5 /HPF Normal 0-5/HPF [facility] UA Auto SS BLOOD BANKOrdered By: Myrna Contreras on 12-05-2022 ABO/Rh Interp Negative Invalid Interpretation Code [facility] BB Subsection ABSC Gel Interp Negative (12/05/22 7:24 AM) Normal [facility] BB Subsection URINALYSISOrdered By: Kimberli Martin on [...] AM) Normal Negative [facility] UA Auto SS [place].plasma/Lithiu m.RBC (Bld) [Mass ratio] 0-3 /HPF Normal [...] [facility] UA Auto SS Urobilinogen Qn (U) 1.6232347 {Lucila'U}/dL Normal 0.0 - 1.0 EU/dL [facility] UA Auto SS WBC Auto Ql (U) Negative (12/05/22 10:05 AM) Normal Negative [facility] UA Auto SS WBC LM.HPF (Urine sed) [#/Area] 0-5 /HPF Normal 0-5/HPF [facility] UA Auto SS CHEMISTRYOrdered By: SYSTEM SYSTEM on 11-21-2022 Anion gap [Moles/Vol] 13 mmol/L Normal 6 - 16 mEq/L F [facility] Remisol Chloride [Moles/Vol] 109 mmol/L Normal 101 [...] Normal >=59mL/min/1 .73 m2 FT Chem S Potassium [Moles/Vol] 3.6 [...] Office Visit (NEADFV ) -------- SHAZIA CHOU ([id number]) 1990 F Date Time Provider Department 11/20/22 8:00 AM EILEEN ALVAREZ During your visit today, we recorded the following information about you: Pulse Blood pressure Weight Height 67/minute 137/81 85.7 kg 1.702 m Last Period 10/23/22 Eileen Alvarez MD 11/20/2022 10:33 AM Signed [facility] General Neurology New Patient Evaluation Consulting Provider: SELF Individuals who were included in, or assisted with the encounter were: Shazia Alvarez MD Chief Complaint/Issues: Shazia Chou is a 31 year old R handed female w PMH HTN, depression, recently diagnosed idiopathic intracranial hypertension, EtOH drinking, H gastric bypass surgery w 100lb weight loss, 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 She has never seen an shadowgraph operator. 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 Idiopathic [...] she agreed. She needs to follow with shadowgraph operator every 6 months. In some patients with intracranial hypertension, there might be a concurrent transverse sinus stenosis and transverse sinus stenting may resolve the symptoms. I will do MRV. --HTN --H depression --Headache: there are a (more content not included)... Normal [facility] CBC AUTO DIFFon 10-30-2022 BASO # 0.0 103/ul Normal 0.0-0.1 [facility] Comment on above: Performed By: #### C JENNIE PATRICK LIPA #### [facility] [address] [address] [address] Manuel Sandhu Basophils/100 WBC (Bld) 0.5 % Normal 0.2-2.0 [facility] Comment on above: Performed By: #### C JENNIE PATRICK LIPA #### [facility] [address] [address] [address] Manuel Sandhu EO # 0.1 103/ul Normal 0.0-0.7 [facility] Comment on above: Performed By: #### C JENNIE PATRICK LIPA #### [facility] [address] [place] [address] Dr. Manule Sandhu Eosinophils/100 WBC (Bld) 1.6 % Normal 0.9-7.0 [facility] Comment on above: Performed By: #### C JENNIE PATRICK, LIPA #### [facility] [address] [place] [address] Dr. Manuel Sandhu Erythrocyte distribution width (RBC) [Ratio] 13.8 % Normal 11.0-15.0 [facility] Comment on above: Performed By: #### C CELINA JENNIE, LIPA #### [facility] [address] [place] [address] Dr. Manuel Sandhu Hematocrit (Bld) [Volume fraction] 38.7 % Normal 36.0-48.0 [facility] Comment on above: Performed By: #### C JENNIE PATRICK, LIPA #### [facility] [address] [place] [address] Dr. Manuel Sandhu Hemoglobin (Bld) [Mass/Vol] 12.9 g/dL Normal 12.0-16.0 [facility] Comment on above: Performed By: #### C JENNIE PATRICK LIPA #### [facility] [address] [place] [address] Dr. Manuel Sandhu IG # 0.03 10e3/ul Normal 0.00-0.03 [facility] Comment on above: Performed By: #### C JENNIE PATRICK LIPA #### [facility] [address] [place] [address] Dr. Manuel Sandhu IG % 0.4 % Normal 0.0-0.5 [facility] Comment on above: Performed By: #### C JENNIE PATRICK, LIPA #### [facility] [address] [place] [address] Dr. Manuel Sandhu LYMPH # 2.1 103/ul Normal 1.2-3.8 [facility] Comment on above: Performed By: #### C JENNIE PATRICK, LIPA #### [facility] [address] [place] [address] Dr. Manuel Sandhu Lymphocytes/100 WBC (Bld) 25.1 % Normal 20.5-60.0 [facility] Comment on above: Performed By: #### C JENNIE PATRICK LIPA #### [facility] [address] [place] [address] Dr. Manuel Sandhu MANUAL DIFF REQ NO Normal [facility] Comment on above: Performed By: #### C CELINA JENNIE, LIPA #### [facility] [address] [place] [address] Dr. Manuel Sandhu MCH (RBC) [Entitic mass] 32.0 pg Normal 26.7-34.0 [facility] Comment on above: Performed By: #### C JENNIE PATRICK LIPA #### [facility] [address] [place] [address] Dr. Manuel Sandhu MCHC (RBC) [Mass/Vol] 33.3 g/dL Normal 29.9-35.2 [facility] Comment on above: Performed By: #### C JENNIE PATRICK LIPA #### [facility] [address] [place] [address] Dr. Manuel Sandhu MCV (RBC) [Entitic vol] 96.0 fL Normal 81.0-99.0 [facility] Comment on above: Performed By: #### C JENNIE PATRICK LIPA #### [facility] [address] [place] [address] Dr. Manuel Sandhu MONO # 0.5 103/ul Normal 0.3-0.8 [facility] Comment on above: Performed By: #### C CELINA JENNIE, LIPA #### [facility] [address] [place] [address] Dr. Manuel Sandhu Monocytes/100 WBC (Bld) 5.7 % Normal 1.7-12.0 [facility] Comment on above: Performed By: #### C CELINA JENNIE, LIPA #### [facility] [address] [place] [address] Dr. Manuel Sandhu NEUT # 5.6 103/ul Normal 1.4-6.5 [facility] Comment on above: Performed By: #### C CELINA JENNIE, LIPA #### [facility] [address] [place] [address] Dr. Manuel Sandhu Neutrophils/100 WBC (Bld) 66.7 % Normal 43.0-75.0 [facility] Comment on above: Performed By: #### C JENNIE PATRICK, LIPA #### [facility] [address] [place] [address] Dr. Manuel Sandhu Platelet mean volume (Bld) [Entitic vol] 10.9 fL Normal 9.5-13.5 [facility] Comment on above: Performed By: #### C CELINA JENNIE, LIPA #### [facility] [address] [place] [address] Dr. Manuel Sandhu PLT 310 103/ul Normal 150-450 [facility] Comment on above: Performed By: #### C CELINA JENNIE, LIPA #### [facility] [address] [place] [address] Dr. Manuel Sandhu RBC 4.03 106/ul Critically low 4.20-5.40 [facility] Comment on above: Performed By: #### C JENNIE PATRICK, LIPA #### [facility] [address] [place] [address] Dr. Manuel Sandhu WBC 8.4 103/ul Normal 4.0-11.0 [facility] Comment on above: Performed By: #### C JENNIE PATRICK, LIPA #### [facility] [address] [place] [address] Dr. Manuel Sandhu ER URINE PROFILEon 3 Bilirubin Ql (U) Negative Normal NEGATIVE [facility] Comment on above: Performed By: #### U MICRO, ERUR #### [facility] [address] [place] [address] Dr. Manuel Sandhu Clarity (U) CLEAR Normal CLEAR [facility] Comment on above: Performed By: #### U MICRO, ERUR #### [facility] [address] [place] [address] Dr. Manuel Sandhu Color (U) LT. YELLOW Normal YELLOW [facility] Comment on above: Performed By: #### U MICRO, ERUR #### [facility] [address] [address] [address] Manuel CUNHA A micrscopic examina tion will be performed if indicated. Normal [facility] Comment on above: Performed By: #### U MICRO, ERUR #### [facility] [address] [address] [address] Manuel Sandhu Glucose Ql (U) Negative Normal NEGATIVE [facility] Comment on above: Performed By: #### U MICRO, ERUR #### [facility] [address] [address] [address] Manuel Sandhu Hemoglobin Ql (U) LARGE Abnormal NEGATIVE [facility] Comment on above: Performed By: #### U MICRO, ERUR #### [facility] [address] [address] [address] Manuel Sandhu Ketones Ql (U) Negative Normal NEGATIVE [facility] Comment on above: Performed By: #### U MICRO, ERUR #### [facility] [address] [address] [address] Manuel Sandhu LEUKOCYTES TRACE Abnormal NEGATIVE [facility] Comment on above: Performed By: #### U MICRO, ERUR #### [facility] [address] [address] [address] Manuel Sandhu Nitrite Ql (U) Negative Normal NEGATIVE [facility] Comment on above: Performed By: #### U MICRO, ERUR #### [facility] [address] [address] [address] Manuel Sandhu pH (U) 6.5 [pH] Normal 5-9 [facility] Comment on above: Performed By: #### U MICRO, ERUR #### [facility] [address] [address] [address] Manuel Sandhu SPEC GRAVITY <=1.005 Abnormal 1.005-<=1.02 5 [facility] Comment on above: Performed By: #### U MICRO, ERUR #### [facility] [address] [place] [address] Dr. Manuel Sandhu UA PROTEIN Negative Normal NEGATIVE/ TRACE [facility] Comment on above: Performed By: #### U MICRO, ERUR #### [facility] [address] [place] [address] Dr. Manuel Sandhu UR MICRO IND INDICATED Normal [facility] Comment on above: Performed By: #### U MICRO, ERUR #### [facility] [address] [place] [address] Dr. Manuel Sandhu Urobilinogen Qn (U) 0.2 {Lucila'U}/dL Normal 0.2 - 1. 0 [facility] Comment on above: Performed By: #### U MICRO, ERUR #### [facility] [address] [place] [address] Dr. Manuel Sandhu PROF CHEM 8 (BAS METB)on Anion gap [Moles/Vol] 11.7 mmol/L Normal [facility] Comment on above: Performed By: #### C MP, JENNIE, LIPA #### [facility] [address] [place] [address] Dr. Manuel Sandhu Calcium [Mass/Vol] 9.1 mg/dL Normal 8.5-10.1 [facility] Comment on above: Performed By: #### C MP, JENNIE, LIPA #### [facility] [address] [place] [address] Dr. Manuel Sandhu Chloride [Moles/Vol] 105 mmol/L Normal 98-107 [facility] Comment on above: Performed By: #### C MP, JENNIE, LIPA #### [facility] [address] [place] [address] Dr. Manuel Sandhu CO2 [Moles/Vol] 26.8 mmol/L Normal 21.0-32.0 [facility] Comment on above: Performed By: #### C MP, JENNIE, LIPA #### [facility] [address] [place] [address] Dr. Manuel Sandhu Creatinine [Mass/Vol] 0.62 mg/dL Normal 0.55-1.02 [facility] Comment on above: Performed By: #### C MP, JENNIE, LIPA #### [facility] [address] [place] [address] Dr. Manuel Sandhu EGFR-AF BRITISH >60 Normal >=60 [facility] Comment on above: Performed By: #### C JENNIE PATRICK, LIPA #### [facility] [address] [place] [address] Dr. Manuel Sandhu EGFR-NON AF BRITISH >60 Normal >=60 [facility] Comment on above: Performed By: #### C JENNIE PATRICK, LIPA #### [facility] [address] [place] [address] Dr. Manuel Sandhu Glucose [Mass/Vol] 92 mg/dL Normal 74-106 [facility] Comment on above: Performed By: #### C JENNIE PATRICK, LIPA #### [facility] [address] [place] [address] Dr. Manuel Sandhu Potassium [Moles/Vol] 3.5 mmol/L Normal 3.5-5.1 [facility] Comment on above: Performed By: #### C JENNIE PATRICK LIPA #### [facility] [address] [place] [address] Dr. Manuel Sandhu Sodium [Moles/Vol] 140 mmol/L Normal 136-145 [facility] Comment on above: Performed By: #### C JENNIE PATRICK LIPA #### [facility] [address] [place] [address] Dr. Manuel Sandhu Urea nitrogen [Mass/Vol] 8.0 mg/dL Normal 7.0-18.0 [facility] Comment on above: Performed By: #### C JENNIE PATRICK LIPA #### [facility] [address] [place] [address] Dr. Manuel Sandhu Urea nitrogen/Creatinine [Mass ratio] 12.9 mg/mg Normal [facility] Comment on above: Performed By: #### C JENNIE PATRICK LIPA #### [facility] [address] [place] [address] Dr. Manuel Sandhu URINE MICROSCOPIC ONLYon BACTERIA NONE SEEN Normal NONE SEEN [facility] Comment on above: Performed By: #### U MICRO, ERUR #### [facility] [address] [place] [address] Dr. Manuel Sandhu Bacteria identified Cx Nom (U) NOT INDICATED Normal [facility] Comment on above: Performed By: #### U MICRO, ERUR #### [facility] [address] [place] [address] Dr. Manuel Sandhu CAST NONE SEEN Normal NONE SEEN [facility] Comment on above: Performed By: #### U MICRO, ERUR #### [facility] [address] [address] [address] Manuel Sandhu Crystals LM Nom (Urine sed) NONE SEEN Normal NONE SEEN [facility] Comment on above: Performed By: #### U MICRO, ERUR #### [facility] [address] [place] [address] Dr. Manuel Sandhu Epithelial cells LM Ql (Urine sed) FEW Abnormal NONE SEEN /RARE [facility] Comment on above: Performed By: #### U MICRO, ERUR #### [facility] [address] [place] [address] Dr. Manuel Sandhu MUCOUS TRACE Abnormal NONE SEEN [facility] Comment on above: Performed By: #### U MICRO, ERUR #### [facility] [address] [place] [address] Dr. Manuel Sandhu RBC 5-10 Abnormal 0-2 [facility] Comment on above: Performed By: #### U MICRO, ERUR #### [facility] [address] [place] [address] Dr. Manuel Sandhu WBC 2-5 Abnormal NONE SEEN [facility] Comment on above: Performed By: #### U MICRO, ERUR #### [facility] [address] [place] [address] Dr. Manuel Sandhu No Panel InformationOrdered By: Dorita Niño on 08-19-2022 CSF Glucose 55 mg/dL 40-70 [facility] CSF Total Protein 24 mg/dL 15-45 [facility] CBC AUTO DIFFon 08-16-2022 BASO # 0.1 103/ul Normal 0.0-0.1 [facility] Comment on above: Performed By: #### U MICRO, ERUR #### [facility] [address] [address] [address] Manuel Sandhu Basophils/100 WBC (Bld) 0.4 % Normal 0.2-2.0 [facility] Comment on above: Performed By: #### U MICRO, ERUR #### [facility] [address] [place] [address] Dr. Manuel Sandhu EO # 0.2 103/ul Normal 0.0-0.7 [facility] Comment on above: Performed By: #### U MICRO, ERUR #### [facility] [address] [place] [address] Dr. Manuel Sandhu Eosinophils/100 WBC (Bld) 1.8 % Normal 0.9-7.0 [facility] Comment on above: Performed By: #### U MICRO, ERUR #### [facility] [address] [place] [address] Dr. Manuel Sandhu Erythrocyte distribution width (RBC) [Ratio] 13.6 % Normal 11.0-15.0 [facility] Comment on above: Performed By: #### U MICRO, ERUR #### [facility] [address] [place] [address] Dr. Manuel Sandhu Hematocrit (Bld) [Volume fraction] 35.8 % Critically low 36.0-48.0 [facility] Comment on above: Performed By: #### U MICRO, ERUR #### [facility] [address] [place] [address] Dr. Manuel Sandhu Hemoglobin (Bld) [Mass/Vol] 12.2 g/dL Normal 12.0-16.0 [facility] Comment on above: Performed By: #### U MICRO, ERUR #### [facility] [address] [place] [address] Dr. Manuel Sandhu IG # 0.05 10e3/ul Critically high 0.00-0.03 [facility] Comment on above: Performed By: #### U MICRO, ERUR #### [facility] [address] [place] [address] Dr. Manuel Sandhu IG % 0.4 % Normal 0.0-0.5 [facility] Comment on above: Performed By: #### U MICRO, ERUR #### [facility] [address] [address] [address] Manuel Sandhu LYMPH # 2.0 103/ul Normal 1.2-3.8 [facility] Comment on above: Performed By: #### U MICRO, ERUR #### [facility] [address] [address] [address] Manuel Sandhu Lymphocytes/100 WBC (Bld) 18.1 % Critically low 20.5-60.0 [facility] Comment on above: Performed By: #### U MICRO, ERUR #### [facility] [address] [address] [address] Manuel Sandhu MANUAL DIFF REQ NO Normal [facility] Comment on above: Performed By: #### U MICRO, ERUR #### [facility] [address] [place] [address] Dr. Manuel Sandhu MCH (RBC) [Entitic mass] 32.0 pg Normal 26.7-34.0 [facility] Comment on above: Performed By: #### U MICRO, ERUR #### [facility] [address] [address] [address] Manuel Sandhu MCHC (RBC) [Mass/Vol] 34.1 g/dL Normal 29.9-35.2 [facility] Comment on above: Performed By: #### U MICRO, ERUR #### [facility] [address] [address] [address] Manuel Sandhu MCV (RBC) [Entitic vol] 94.0 fL Normal 81.0-99.0 [facility] Comment on above: Performed By: #### U MICRO, ERUR #### [facility] [address] [address] [address] Manuel Sandhu MONO # 0.7 103/ul Normal 0.3-0.8 [facility] Comment on above: Performed By: #### U MICRO, ERUR #### [facility] [address] [address] [address] Manuel Sandhu Monocytes/100 WBC (Bld) 5.8 % Normal 1.7-12.0 [facility] Comment on above: Performed By: #### U MICRO, ERUR #### [facility] [address] [place] [address] Dr. Manuel Sandhu NEUT # 8.2 103/ul Critically high 1.4-6.[address] [facility] Comment on above: Performed By: #### U MICRO, ERUR #### [facility] [address] [place] [address] Dr. Manuel Sandhu Neutrophils/100 WBC (Bld) 73.5 % Normal 43.0-75.0 [facility] Comment on above: Performed By: #### U MICRO, ERUR #### [facility] [address] [place] [address] Dr. Manuel Sandhu Platelet mean volume (Bld) [Entitic vol] 11.3 fL Normal 9.5-13.5 [facility] Comment on above: Performed By: #### U MICRO, ERUR #### [facility] [address] [place] [address] Dr. Manuel Sandhu PLT 284 103/ul Normal 150-450 [facility] Comment on above: Performed By: #### U MICRO, ERUR #### [facility] [address] [place] [address] Dr. Manuel Sandhu RBC 3.81 106/ul Critically low 4.20-5.[address] [facility] Comment on above: Performed By: #### U MICRO, ERUR #### [facility] [address] [place] [address] Dr. Manuel Sandhu WBC 11.2 103/ul Critically high 4.0-11.0 [facility] Comment on above: Performed By: #### U MICRO, ERUR #### [facility] [address] [place] [address] Dr. Manuel Sandhu D-DIMERon 08-16-2022 D-DIMER 0.34 mg/L FEU Normal <=0.59 [facility] Comment on above: Performed By: #### U MICRO, ERUR #### [facility] [address] [place] [address] Dr. Manuel Sandhu D-DIMER COMMENTS SEE BELOW Normal [facility] Comment on above: Result Comment: Incr eases [...] Performed By: #### U MICRO, ERUR #### [facility] [address] [place] [address] Dr. Manuel Sandhu PROF CHEM 8 (BAS METB)on Anion gap [Moles/Vol] 10.6 mmol/L Normal [facility] Comment on above: Performed By: #### I NFLUAB #### [facility] [address] [place] [address] Dr. Manuel Sandhu Calcium [Mass/Vol] 9.2 mg/dL Normal 8.5-10.1 [facility] Comment on above: Performed By: #### I NFLUAB #### [facility] [address] [place] [address] Dr. Manuel Sandhu Chloride [Moles/Vol] 103 mmol/L Normal 98-107 [facility] Comment on above: Performed By: #### I NFLUAB #### [facility] [address] [place] [address] Dr. Manuel Sandhu CO2 [Moles/Vol] 28.4 mmol/L Normal 21.0-32.0 [facility] Comment on above: Performed By: #### I NFLUAB #### [facility] [address] [place] [address] Dr. Manuel Sandhu Creatinine [Mass/Vol] 0.61 mg/dL Normal 0.55-1.02 [facility] Comment on above: Performed By: #### I NFLUAB #### [facility] [address] [place] [address] Dr. Manuel Sandhu EGFR-AF BRITISH >60 Normal >=60 [facility] Comment on above: Performed By: #### I NFLUAB #### [facility] [address] [address] [address] Manuel Sandhu EGFR-NON AF BRITISH >60 Normal >=60 [facility] Comment on above: Performed By: #### I NFLUAB #### [facility] [address] [address] [address] Manuel Sandhu Glucose [Mass/Vol] 90 mg/dL Normal 74-106 [facility] Comment on above: Performed By: #### I NFLUAB #### [facility] [address] [address] [address] Manuel Sandhu Potassium [Moles/Vol] 4.0 mmol/L Normal 3.5-5.1 [facility] Comment on above: Performed By: #### I NFLUAB #### [facility] [address] [address] [address] Manuel Sandhu Sodium [Moles/Vol] 138 mmol/L Normal 136-145 [facility] Comment on above: Performed By: #### I NFLUAB #### [facility] [address] [address] [address] Manuel Sandhu Urea nitrogen [Mass/Vol] 16.0 mg/dL Normal 7.0-18.0 [facility] Comment on above: Performed By: #### I NFLUAB #### [facility] [address] [address] [address] Manuel Sandhu Urea nitrogen/Creatinine [Mass ratio] 26.2 mg/mg Normal [facility] Comment on above: Performed By: #### I NFLUAB #### [facility] [address] [address] [address] Manuel Sandhu XR CHEST 1 Von 08-16-2022 XR CHEST 1 V EXAM: XR CHEST 1 V HISTORY: CHEST PAIN, UNSPECIFIED. Shortness of breath. COMPARISON: Comparison made to chest x-ray dated 07/19/2022. TECHNIQUE: Single AP portable chest x-ray. FINDINGS: The lungs are clear bilaterally and the cardiomediastinal silhouette is within normal limits. IMPRESSION: 1. No acute cardiopulmonary disease. Electronically authenticated by: YOLI DOUGLASSHU Date: 2022-08-16 14:16 Normal [facility] Albumin [Mass/volume] in Ser um or PlasmaOrdered By: Sangeetha Peña on 08-12-2022 Albumin [Mass/Vol] 3.2 g/dL 3.2-5.5 [facility] Basophils Auto (Bld) [#/Vol] Ordered By: Sangeetha Peña on 08-12-2022 Basophils (Bld) [#/Vol] 0.1 10*3/uL 0.0-0.2 [facility] Basophils/100 WBC Auto (Bld) Ordered By: Sangeetha Peña on 08-12-2022 Basophils/100 WBC (Bld) 0.7 % . [facility] C reactive protein [Mass/vol ume] in Serum or PlasmaOrdered By: Sangeetha Peña on 08-12-2022 CRP [Mass/Vol] 0.5 mg/dL 0.0-1.0 [facility] Creatinine and Glomerular fi ltration rate.predicted panel (S/P/Bld)Ordered By: Sangeetha Peña on 08-12-2022 Creatinine [Mass/Vol] 0.65 mg/dL 0.44-1.03 [facility] Eosinophils Auto (Bld) [#/Vo l]Ordered By: Sangeetha Peña on 08-12-2022 Eosinophils (Bld) [#/Vol] 0.4 10*3/uL 0.0-0.45 [facility] Eosinophils/100 WBC Auto (Bl d)Ordered By: Sangeetha Peña on 08-12-2022 Eosinophils/100 WBC (Bld) 5.2 % . [facility] Erythrocyte distribution wid th Auto (RBC) [Ratio]Ordered By: Sangeetha Peña on 08-12-2022 Erythrocyte distribution width (RBC) [Ratio] 14.4 % 11.9-15.3 [facility] Erythrocyte sedimentation ra te by Photometric methodOrdered By: Dorita Niño on 08-12-2022 ESR Photometric method (Bld) [Velocity] 3 mm/hr 0-19 [facility] Estimated glomerular filtrat ion rate (GFR) non- AmericanOrdered By: Sangeehta Peña on 08-12-2022 GFR/1.73 sq M.predicted among non-blacks MDRD (S/P/Bld) [Vol rate/Area] > 60 mL/Min [facility] Folate [Mass/volume] in Seru m or PlasmaOrdered By: Lizzeth Malave on 08-12-2022 Folate [Mass/Vol] 15.3 ng/mL >5.9 [facility] Comment on above: Folate reference ran ge: >5.9 ng/mlThe WHO technical consultation on folate and vitamin [id number] has determined that folate concentrations lessthan 4 ng/ml are considered deficient. Globulin Calc (S) [Mass/Vol] Ordered By: Sangeetha Peña on 08-12-2022 Globulin (S) [Mass/Vol] 2.4 g/dL [facility] HCG ( test) IA.rapi d Ql (U)Ordered By: Lizzeth Malave on 08-12-2022 HCG ( test) Ql (U) Negative [facility] Hematocrit Auto (Bld) [Volum e fraction]Ordered By: Sangeetha Peña on 08-12-2022 Hematocrit (Bld) [Volume fraction] 34.6 % 34.0-46.4 [facility] Hemoglobin [Mass/volume] in BloodOrdered By: Sangeetha Peña on 08-12-2022 Hemoglobin (Bld) [Mass/Vol] 11.3 g/dL 11.8-15.4 [facility] - Chemistry and C hemistry - challengeOrdered By: Lizzeth Malave on 08-12-2022 Cobalamin (Vitamin B12) [Mass/Vol] 610 pg/mL 180-914 [facility] Magnesium [Mass/Vol] 1.9 mg/dL 1.6-2.6 [facility] - Hematology and Cell countsOrdered By: Sangeetha Peña on 08-12-2022 Nucleated RBC/100 WBC (Bld) [Ratio] 0.1 % 0-0.5 [facility] Leukocytes [#/volume] in Blo od by Automated countOrdered By: Sangeetha Peña on 08-12-2022 WBC (Bld) [#/Vol] 8.3 10*3/uL 4.5-11.0 [facility] Lymphocytes Auto (Bld) [#/Vo l]Ordered By: Sangeetha Peña on 08-12-2022 Lymphocytes (Bld) [#/Vol] 2.3 10*3/uL 1.00-4.8 [facility] Lymphocytes/100 WBC Auto (Bl d)Ordered By: Sangeetha Peña on 08-12-2022 Lymphocytes/100 WBC (Bld) 27.4 % . [facility] MCH Auto (RBC) [Entitic mass ]Ordered By: Sangeetha Peña on 08-12-2022 MCH (RBC) [Entitic mass] 32.0 pg 24.7-34.3 [facility] MCHC Auto (RBC) [Mass/Vol]Or dered By: Sangeetha Peña on 08-12-2022 MCHC (RBC) [Mass/Vol] 32.8 g/dL 32.0-35.0 [facility] MCV Auto (RBC) [Entitic vol] Ordered By: Sangeetha Peña on 08-12-2022 MCV (RBC) [Entitic vol] 97.7 fL 80-100 [facility] Monocytes Auto (Bld) [#/Vol] Ordered By: Sangeetha Peña on 08-12-2022 Monocytes (Bld) [#/Vol] 0.7 10*3/uL 0.0-0.8 [facility] Monocytes/100 WBC Auto (Bld) Ordered By: Sangeetha Peña on 08-12-2022 Monocytes/100 WBC (Bld) 8.7 % . [facility] Neutrophils Auto (Bld) [#/Vo l]Ordered By: Sangeetha Peña on 08-12-2022 Neutrophils (Bld) [#/Vol] 4.8 10*3/uL 1.8-7.7 [facility] Neutrophils/100 WBC Auto (Bl d)Ordered By: Sangeetha Peña on 08-12-2022 Neutrophils/100 WBC (Bld) 58.0 % . [facility] No Panel InformationOrdered By: Sangeetha Pñea on 08-12-2022 Estimated GFR () > 60 mL/Min [facility] Comment on above: GFR estimated refere nce range: According to KDOQI guidelines, <60 ml/min/1.73m2 is sufficient to diagnose a patient with chronic kidney disease. Pharmacy Creatinine Clearance (Chem 140.31 [facility] Platelet mean volume Auto (B ld) [Entitic vol]Ordered By: Sangeetha Peña on 08-12-2022 Platelet mean volume (Bld) [Entitic vol] 10.2 fL 6.3-10.7 [facility] Platelets Auto (Bld) [#/Vol] Ordered By: Sangeetha Peña on 08-12-2022 Platelets (Bld) [#/Vol] 263 10*3/uL 150-450 [facility] Protein [Mass/volume] in Ser um or PlasmaOrdered By: Sangeetha Peña on 08-12-2022 Protein [Mass/Vol] 5.6 g/dL 6.1-7.9 [facility] RBC Auto (Bld) [#/Vol]Ordere d By: Sangeetha Peña on 08-12-2022 RBC (Bld) [#/Vol] 3.54 10*6/uL 3.60-5.00 [facility] Serum or plasma alanine alberto otransferase measurement without P-5'-P (enzymatic activiOrdered By: Sangeetha Peña on 08-12-2022 ALT No additional P-5'-P [Catalytic activity/Vol] 22 U/L 10-60 [facility] Serum or plasma albumin/glob ulin mass ratioOrdered By: Sangeetha Peña on 08-12-2022 Albumin/Globulin [Mass ratio] 1.3 {ratio} [facility] Serum or plasma alkaline marquez sphatase measurement (enzymatic activity/volume)Ordered By: Sangeetha Peña on 08-12-2022 ALP [Catalytic activity/Vol] 54 U/L 32-92 [facility] Serum or plasma anion gap de terminationOrdered By: Sangeetha Peña on 08-12-2022 Anion gap [Moles/Vol] 10.6 mmol/L 6.0-15.0 [facility] Serum or plasma aspartate am inotransferase measurement (enzymatic activity/volume)Ordered By: Sangeetha Peña on 08-12-2022 AST [Catalytic activity/Vol] 20 U/L 10-42 [facility] Serum or plasma calcium audie urement (mass/volume)Ordered By: Sangeetha Peña on 08-12-2022 Calcium [Mass/Vol] 8.8 mg/dL 8.2-10.2 [facility] Serum or plasma chloride nimisha surement (moles/volume)Ordered By: Sangeetha Peña on 08-12-2022 Chloride [Moles/Vol] 105 mmol/L 95-114 [facility] Serum or plasma glucose audie urement (mass/volume)Ordered By: Sangeetha Peña on 08-12-2022 Glucose [Mass/Vol] 85 mg/dL 70-100 [facility] Comment on above: ADA recommended refe rence rangeRandom Glucose Reference Range is dependent on time and content of last meal. Glucose of more than 200 mg/dL in a nonstressed, ambulatory subject supports the diagnosis of Diabetes Mellitus. Serum or plasma potassium me asurement (moles/volume)Ordered By: Sangeetha Peña on 08-12-2022 Potassium [Moles/Vol] 4.2 mmol/L 3.5-5.1 [facility] Serum or plasma sodium measu rement (moles/volume)Ordered By: Sangeetha Peña on 08-12-2022 Sodium [Moles/Vol] 140 mmol/L 136-146 [facility] Serum or plasma total biliru bin measurement (mass/volume)Ordered By: Sangeetha Peña on 08-12-2022 Bilirubin [Mass/Vol] 0.5 mg/dL 0.3-1.2 [facility] Serum or plasma total carbon dioxide measurement (moles/volume)Ordered By: Sangeetha Peña on 08-12-2022 CO2 [Moles/Vol] 28.6 mmol/L 22.0-30.0 [facility] Serum or plasma urea nitroge n measurement (mass/volume)Ordered By: Sangeetha Peña on 08-12-2022 Urea nitrogen [Mass/Vol] 7 mg/dL 9- [facility] TSH DL <= 0.005 mIU/L QnOrde red By: Lizzeth Malave on 08-12-2022 TSH Qn 1.79 m[IU]/L 0.45-5.33 [facility] Troponin I.cardiac [Mass/vol ume] in Serum or Plasma by High sensitivity methodOrdered By: Lizzeth Malave on 08-12-2022 Troponin I.cardiac High sensitivity method [Mass/Vol] < 3 pg/mL 0-15 [facility] CBC AUTO DIFFon 08-11-2022 BASO # 0.1 103/ul Normal 0.0-0.1 [facility] Comment on above: Performed By: #### C JENNIE PATRICK LIPA #### [facility] [address] [place] [address] Dr. Manuel Sandhu Basophils/100 WBC (Bld) 0.5 % Normal 0.2-2.0 [facility] Comment on above: Performed By: #### C JENNIE PATRICK LIPA #### [facility] [address] [place] [address] Dr. Manuel Sandhu EO # 0.4 103/ul Normal 0.0-0.7 [facility] Comment on above: Performed By: #### C JENNIE PATRICK LIPA #### [facility] [address] [place] [address] Dr. Manuel Sandhu Eosinophils/100 WBC (Bld) 2.4 % Normal 0.9-7.0 [facility] Comment on above: Performed By: #### C JENNIE PATRICK LIPA #### [facility] [address] [place] [address] Dr. Manuel Sandhu Erythrocyte distribution width (RBC) [Ratio] 14.1 % Normal 11.0-15.0 [facility] Comment on above: Performed By: #### C JENNIE PATRICK LIPA #### [facility] [address] [place] [address] Dr. Manuel Sandhu Hematocrit (Bld) [Volume fraction] 39.4 % Normal 36.0-48.0 [facility] Comment on above: Performed By: #### C MP, JENNIE, LIPA #### [facility] [address] [place] [address] Dr. Manuel Sandhu Hemoglobin (Bld) [Mass/Vol] 13.3 g/dL Normal 12.0-16.0 [facility] Comment on above: Performed By: #### C MP, JENNIE, LIPA #### [facility] [address] [place] [address] Dr. Manuel Sandhu IG # 0.07 10e3/ul Critically high 0.00-0.03 [facility] Comment on above: Performed By: #### C MP, JENNIE, LIPA #### [facility] [address] [place] [address] Dr. Manuel Sandhu IG % 0.5 % Normal 0.0-0.5 [facility] Comment on above: Performed By: #### C MP, JENNIE, LIPA #### [facility] [address] [place] [address] Dr. Manuel Sandhu LYMPH # 3.6 103/ul Normal 1.2-3.8 [facility] Comment on above: Performed By: #### C CELINA JENNIE, LIPA #### [facility] [address] [place] [address] Dr. Manuel Sandhu Lymphocytes/100 WBC (Bld) 23.5 % Normal 20.5-60.0 [facility] Comment on above: Performed By: #### C CELINA JENNIE, LIPA #### [facility] [address] [place] [address] Dr. Manuel Sandhu MANUAL DIFF REQ NO Normal [facility] Comment on above: Performed By: #### C MP, JENNIE, LIPA #### [facility] [address] [place] [address] Dr. Manuel Sandhu MCH (RBC) [Entitic mass] 32.1 pg Normal 26.7-34.0 [facility] Comment on above: Performed By: #### C MP, JENNIE, LIPA #### [facility] [address] [place] [address] Dr. Manuel Sandhu MCHC (RBC) [Mass/Vol] 33.8 g/dL Normal 29.9-35.2 [facility] Comment on above: Performed By: #### C JENNIE PATRICK LIPA #### [facility] [address] [place] [address] Dr. Manuel Sandhu MCV (RBC) [Entitic vol] 95.2 fL Normal 81.0-99.0 [facility] Comment on above: Performed By: #### C CELINA JENNIE, LIPA #### [facility] [address] [place] [address] Dr. Manuel Sandhu MONO # 0.9 103/ul Critically high 0.3-0.[address] [facility] Comment on above: Performed By: #### C JENNIE PATRICK LIPA #### [facility] [address] [place] [address] Dr. Manuel Sandhu Monocytes/100 WBC (Bld) 5.8 % Normal 1.7-12.0 [facility] Comment on above: Performed By: #### C CELINA JENNIE, LIPA #### [facility] [address] [place] [address] Dr. Manuel Sandhu NEUT # 10.3 103/ul Critically high 1.4-6.5 [facility] Comment on above: Performed By: #### C JENNIE PATRICK, LIPA #### [facility] [address] [place] [address] Dr. aMnuel Sandhu Neutrophils/100 WBC (Bld) 67.3 % Normal 43.0-75.0 [facility] Comment on above: Performed By: #### C CELINA JENNIE, LIPA #### [facility] [address] [place] [address] Dr. Manuel Sandhu Platelet mean volume (Bld) [Entitic vol] 11.4 fL Normal 9.5-13.5 [facility] Comment on above: Performed By: #### C MP JENNIE, LIPA #### [facility] [address] [place] [address] Dr. Manuel Sandhu PLT 364 103/ul Normal 150-450 [facility] Comment on above: Performed By: #### C MP JENNIE, LIPA #### [facility] [address] [address] [address] Manuel Sandhu RBC 4.14 106/ul Critically low 4.20-5.[address] [facility] Comment on above: Performed By: #### C CELINA JENNIE, LIPA #### [facility] [address] [place], [place] [address] Dr. Manuel Sandhu WBC 15.3 103/ul Critically high 4.0-11.0 [facility] Comment on above: Performed By: #### C JENNIE PATRICK, LIPA #### [facility] [address] [address] [address] STROKE HEAD WOon [...] YOLI MCKEON Date: 2022-08-11 15:21 Normal [facility] ER URINE PROFILEon 2 Bilirubin Ql (U) Negative Normal NEGATIVE [facility] Comment on above: Performed By: #### U MICRO, ERUR #### [facility] [address] [address] [address] Manuel Sandhu Clarity (U) CLEAR Normal CLEAR [facility] Comment on above: Performed By: #### U MICRO, ERUR #### [facility] [address] [address] [address] Manuel Sandhu Color (U) LT. YELLOW Normal YELLOW [facility] Comment on above: Performed By: #### U MICRO, ERUR #### [facility] [address] [address] [address] Manuel Sandhu ERUAHD A micrscopic examina tion will be performed if indicated. Normal [facility] Comment on above: Performed By: #### U MICRO, ERUR #### [facility] [address] [address] [address] Manuel Sandhu Glucose Ql (U) Negative Normal NEGATIVE [facility] Comment on above: Performed By: #### U MICRO, ERUR #### [facility] [address] [place] [address] Dr. Manuel Sandhu Hemoglobin Ql (U) Negative Normal NEGATIVE [facility] Comment on above: Performed By: #### U MICRO, ERUR #### [facility] [address] [address] [address] Manuel Sandhu Ketones Ql (U) Negative Normal NEGATIVE [facility] Comment on above: Performed By: #### U MICRO, ERUR #### [facility] [address] [place] [address] Dr. Manuel Sandhu LEUKOCYTES Negative Normal NEGATIVE [facility] Comment on above: Performed By: #### U MICRO, ERUR #### [facility] [address] [address] [address] Manuel Sandhu Nitrite Ql (U) Negative Normal NEGATIVE [facility] Comment on above: Performed By: #### U MICRO, ERUR #### [facility] [address] [place] [address] Dr. Manuel Sandhu pH (U) 7.0 [pH] Normal 5-9 [facility] Comment on above: Performed By: #### U MICRO, ERUR #### [facility] [address] [place] [address] Dr. Manuel Sandhu SPEC GRAVITY <=1.005 Abnormal 1.005-<=1.02 5 [facility] Comment on above: Performed By: #### U MICRO, ERUR #### [facility] [address] [place] [address] Dr. Manuel Sandhu UA PROTEIN Negative Normal NEGATIVE/ TRACE [facility] Comment on above: Performed By: #### U MICRO, ERUR #### [facility] [address] [place] [address] Dr. Manuel Sandhu UR MICRO IND NOT INDICATED Normal [facility] Comment on above: Performed By: #### U MICRO, ERUR #### [facility] [address] [place] [address] Dr. Manuel Sandhu Urobilinogen Qn (U) 0.2 {Lucila'U}/dL Normal 0.2 - 1. 0 [facility] Comment on above: Performed By: #### U MICRO, ERUR #### [facility] [address] [place] [address] Dr. Manuel Sandhu LACTATE/LACTIC ACIDon 2021 Lactate [Moles/Vol] 1.5 mmol/L Normal 0.4-1.9 [facility] Comment on above: Performed By: #### I NFLUAB #### [facility] [address] [place] [address] Dr. Manuel Sandhu LIPASEon 08-11-2022 Lipase [Catalytic activity/Vol] 84.0 U/L Normal 73.0-393.0 [facility] Comment on above: Performed By: #### C MP, JENINE, LIPA #### [facility] [address] [place] [address] Dr. Manuel Sandhu URon 08-11-2022 , QUAL Negative Normal NEGATIVE [facility] Comment on above: Performed By: #### U MICRO, ERUR #### [facility] [address] [place] [address] Dr. Manuel Sandhu PROF 14(COMP METB)on Albumin [Mass/Vol] 4.3 g/dL Normal 3.4-5.0 [facility] Comment on above: Performed By: #### C MP, JENNIE, LIPA #### [facility] [address] [address] [address] Manuel Sandhu Albumin/Globulin [Mass ratio] 1.1 {ratio} Normal [facility] Comment on above: Performed By: #### C MP, JENNIE, LIPA #### [facility] [address] [address] [address] Manuel Sandhu ALP [Catalytic activity/Vol] 87 U/L Normal 46-116 [facility] Comment on above: Performed By: #### C MP, JENNIE, LIPA #### [facility] [address] [address] [address] Manuel Sandhu ALT [Catalytic activity/Vol] 32 U/L Normal 14-59 [facility] Comment on above: Performed By: #### C MP, JENNIE, LIPA #### [facility] [address] [address] [address] Manuel Sandhu Anion gap [Moles/Vol] 12.7 mmol/L Normal [facility] Comment on above: Performed By: #### C MP, JENNIE, LIPA #### [facility] [address] [address] [address] Manuel Sandhu AST [Catalytic activity/Vol] 24 U/L Normal 15-37 [facility] Comment on above: Performed By: #### C MP, JENNIE, LIPA #### [facility] [address] [address] [address] Manuel Sandhu Bilirubin [Mass/Vol] 0.3 mg/dL Normal 0.2-1.0 [facility] Comment on above: Performed By: #### C MP, JENNIE, LIPA #### [facility] [address] [address] [address] Manuel Sandhu Calcium [Mass/Vol] 9.4 mg/dL Normal 8.5-10.1 [facility] Comment on above: Performed By: #### C MP, JENNIE, LIPA #### [facility] [address] [address] [address] Manuel Sandhu Chloride [Moles/Vol] 100 mmol/L Normal 98-107 [facility] Comment on above: Performed By: #### C JENNIE PATRICK LIPA #### [facility] [address] [address] [address] Manuel Sandhu CO2 [Moles/Vol] 27.7 mmol/L Normal 21.0-32.0 [facility] Comment on above: Performed By: #### C JENNIE PATRICK LIPA #### [facility] [address] [address] [address] Manuel Sandhu Creatinine [Mass/Vol] 0.71 mg/dL Normal 0.55-1.02 [facility] Comment on above: Performed By: #### C JENNIE PATRICK LIPA #### [facility] [address] [place] [address] Dr. Manuel Sandhu EGFR-AF BRITISH >60 Normal >=60 [facility] Comment on above: Performed By: #### C JENNIE PATRICK LIPA #### [facility] [address] [place] [address] Dr. Manuel Sandhu EGFR-NON AF BRITISH >60 Normal >=60 [facility] Comment on above: Performed By: #### C JENNIE PATRICK LIPA #### [facility] [address] [place] [address] Dr. Manuel Sandhu Globulin (S) [Mass/Vol] 3.9 g/dL Normal [facility] Comment on above: Performed By: #### C JENNIE PATRICK LIPA #### [facility] [address] [address] [address] Manuel Sandhu Glucose [Mass/Vol] 109 mg/dL Critically high 74-106 [facility] Comment on above: Performed By: #### C JENNIE PATRICK LIPA #### [facility] [address] [place] [address] Dr. Manuel Sandhu Potassium [Moles/Vol] 3.4 mmol/L Critically low 3.5-5.1 [facility] Comment on above: Performed By: #### C JENNIE PATRICK LIPA #### [facility] [address] [place] [address] Dr. Manuel Sandhu Protein [Mass/Vol] 8.2 g/dL Normal 6.4-8.2 [facility] Comment on above: Performed By: #### C JENNIE PATRICK LIPA #### [facility] [address] [place] [address] Dr. Manuel Sandhu Sodium [Moles/Vol] 137 mmol/L Normal 136-145 [facility] Comment on above: Performed By: #### C JENNIE PATRICK LIPA #### [facility] [address] [place] [address] Dr. Manuel Sandhu Urea nitrogen [Mass/Vol] 10.0 mg/dL Normal 7.0-18.0 [facility] Comment on above: Performed By: #### C JENNIE PATRICK LIPA #### [facility] [address] [place] [address] Dr. Manuel Sandhu Urea nitrogen/Creatinine [Mass ratio] 14.1 mg/mg Normal [facility] Comment on above: Performed By: #### C JENNIE PATRICK LIPA #### [facility] [address] [place] [address] Dr. Manuel Sandhu PROTIMEon 08-11-2022 INR Coag (PPP) [Relative time] 0.96 {INR} Normal [facility] Comment on above: Performed By: #### I NFLUAB #### [facility] [address] [place] [address] Dr. Manuel Sandhu INR GUIDELINES SEE BELOW Normal [facility] Comment on above: Result Comment: CHUY RED INR: 2.0 - 3.0 CONDITIONS NOT LISTED BELOW 2.5 - 3.5 FOR PROSTHETIC HEART VALVE REPLACEMENT 2.5 - 3.5 RECURRENT THROMBOSIS Performed By: #### I NFLUAB #### [facility] [address] [place] [address] Dr. Manuel Sandhu PT Coag (PPP) [Time] 10.4 s Normal 9.0-11.6 [facility] Comment on above: Performed By: #### I NFLUAB #### [facility] [address] [place] [address] Dr. Manuel Sandhu PTTon 08-11-2022 aPTT Coag (Bld) [Time] 25.3 s Normal 22.3-36.2 [facility] Comment on above: Performed By: #### I NFLUAB #### [facility] [address] [place], [place] [address] Dr. Manuel Sandhu TROPONIN, HIGH SENSITIVITYon 08-11-2022 HSTROP 4.5 pg/mL Normal 4.0-51.3 [facility] Comment on above: Result Comment: CUT- OFF POINTS HAVE BEEN ESTABLISHED BASED ON THE FOURTH UNIVERSAL DEFINITIONS OF MYOCARDIAL INFARCTION. THE UPPER REFERENCE LIMIT (URL) OF TROPONIN, DEFINED THE 99TH PERCENTILE OF cTnI DISTRIBUTION IN A REFERENCE POPULATION, HAS BEEN CONFIRMED THE DECISION THRESHOLD FOR SD DIAGNOSIS. Performed By: #### C JENNIE PATRICK LIPA #### [facility] [address] [place], [place] [address] Dr. Manuel Sandhu TSHon 08-11-2022 TSH 1.778 uIU/mL Normal 0.358-3.740 [facility] Comment on above: Performed By: #### C JENNIE PATRICK LIPA #### [facility] [address] [place], [place] [address] Dr. Manuel Sandhu CHEMISTRYOrdered By: SYSTEM SYSTEM [...] rate/Area] mL/min/1.73 m2 Normal >=59mL/min/[address] [facility] Chem S Glucose [Mass/Vol] 84 mg/dL Normal 55 - 199 mg/dL [facility] Remisol Potassium [Moles/Vol] 4.2 mmol/L Normal 3.5 - 5.3 mmol/L [facility] Remisol Sodium [Moles/Vol] 137 mmol/L Normal 135 - 145 mmol/L [facility] Remisol Urea nitrogen [Mass/Vol] 13 mg/dL Normal 5 - 21 mg/dL [facility] Remisol Urea nitrogen/Creatinine [Mass ratio] 22 mg/mg High 10 - 20 [facility] Remisol CHEMISTRYOrdered By: Lab ROP User on 08-08-2022 Glucose [Mass/Vol] 98 mg/dL Normal 55 - 99 mg/dL [facility] POC Subsection POC Device SN [id number] Invalid Interpretation Code [facility] POC Subsection POC User ID [id number] Invalid Interpretation Code [facility] POC Subsection POC Username [email or web address] RALPHFER Invalid Interpretation Code [facility] POC Subsection HEMATOLOGYOrdered By: SYSTEM SYSTEM on 08-08-2022 Basophils/100 WBC (Bld) 0.5 % Normal 0.0 - 2.0 % [facility] HemeAutoSS Basophils/Leukocytes Auto (Bld) [Pure # fraction] 0.1 E9/L Normal 0.0 - 0.2 E9/L [facility] HemeAutoSS Eosinophils/100 WBC (Bld) 2.8 % Normal 0.0 - 8.0 % [facility] Eosinophils/Leukocyte s Auto (Bld) [Pure # [...] 74.8 % Normal 36.0 - 75.0 % [facility] Neutrophils/Leukocyte s Auto (Bld) [Pure # fraction] 8.3 E9/L High 2.0 - 7.5 E9/L [facility] HEMATOLOGYOrdered By: Shasta Eller on 08-08-2022 Erythrocyte distribution width (RBC) [Ratio] 14.1 % Normal 10.9 - 14.2 % [facility] Hematocrit (Bld) [Volume fraction] 34.9 % Normal 34.0 - 46.0 % [facility] Hemoglobin (Bld) [Mass/Vol] 11.9 g/dL Low 12.0 - 16.0 gm/dL [facility] MCH (RBC) [Entitic mass] 32.2 pg Normal 27.0 - 34.0 pg [facility] MCHC (RBC) [Mass/Vol] 34.1 g/dL Normal 31.4 - 36.0 gm/dL [facility] MCV (RBC) [Entitic vol] 94.5 fL Normal 80.0 - 100.0 fL [facility] Platelet mean volume (Bld) [Entitic vol] 9.0 fL Normal 6.4 - 10.8 fL [facility] Platelets (Bld) [#/Vol] 288.0 E9/L Normal 150.0 - 500.0 E9/L [facility] RBC (Bld) [#/Vol] 3.7 E12/L Low 4.3 - 5.9 E12/L [facility] WBC corrected for nucl RBC Auto (Bld) [#/Vol] 11.1 E9/L High 4.0 - 11.0 E9/L [facility] MICRO OTHER TESTSOrdered By: Kimberli Briseno on 08-08-2022 Influenzae A Ag Negative (08/08/22 9:59 AM) Normal Negative [facility] Man Sero Influenzae B Ag Negative (08/08/22 9:59 AM) Normal Negative [facility] Man Sero Rapid COV Int NEG Ctl Pass (08/08/22 9:59 AM) Normal [facility] Man Sero Rapid COV Int POS Ctl Pass (08/08/22 9:59 AM) Normal [facility] Man Sero SARS-CoV+SARS-CoV-2 (COVID-19) Ag IA.rapid Ql [...] AM) Normal Negative [facility] UA Auto SS Van Lear.plasma/Lithiu m.RBC (Bld) [Mass ratio] 0-3 /HPF Normal [...] [facility] UA Auto SS Urobilinogen Qn (U) 0.1488449 {Lucila'U}/dL Normal 0.0 - 1.0 EU/dL [facility] UA Auto SS WBC Auto Ql (U) Negative (08/08/22 10:01 AM) Normal Negative [facility] UA Auto SS WBC LM.HPF (Urine sed) [#/Area] 0-5 /HPF Normal 0-5/HPF [facility] UA Auto SS CBC AUTO DIFFon 07-19-2022 BASO # 0.1 103/ul Normal 0.0-0.1 [facility] Comment on above: Performed By: #### I NFLUAB #### [facility] [address] [place] [address] Dr. Manuel Sandhu Basophils/100 WBC (Bld) 0.4 % Normal 0.2-2.0 [facility] Comment on above: Performed By: #### I NFLUAB #### [facility] [address] [place] [address] Dr. Manuel Sandhu EO # 0.3 103/ul Normal 0.0-0.7 [facility] Comment on above: Performed By: #### I NFLUAB #### [facility] [address] [place] [address] Dr. Manuel Sandhu Eosinophils/100 WBC (Bld) 2.4 % Normal 0.9-7.0 [facility] Comment on above: Performed By: #### I NFLUAB #### [facility] [address] [place] [address] Dr. Manuel Sandhu Erythrocyte distribution width (RBC) [Ratio] 13.7 % Normal 11.0-15.0 [facility] Comment on above: Performed By: #### I NFLUAB #### [facility] [address] [place] [address] Dr. Manuel Sandhu Hematocrit (Bld) [Volume fraction] 36.5 % Normal 36.0-48.0 [facility] Comment on above: Performed By: #### I NFLUAB #### [facility] [address] [place] [address] Dr. Manuel Sandhu Hemoglobin (Bld) [Mass/Vol] 12.3 g/dL Normal 12.0-16.0 [facility] Comment on above: Performed By: #### I NFLUAB #### [facility] [address] [address] [address] Manuel Sandhu IG # 0.04 10e3/ul Critically high 0.00-0.03 [facility] Comment on above: Performed By: #### I NFLUAB #### [facility] [address] [place] [address] Dr. Manuel Sandhu IG % 0.3 % Normal 0.0-0.5 [facility] Comment on above: Performed By: #### I NFLUAB #### [facility] [address] [place] [address] Dr. Manuel Sandhu LYMPH # 2.6 103/ul Normal 1.2-3.8 [facility] Comment on above: Performed By: #### I NFLUAB #### [facility] [address] [place] [address] Dr. Manuel Sandhu Lymphocytes/100 WBC (Bld) 22.3 % Normal 20.5-60.0 [facility] Comment on above: Performed By: #### I NFLUAB #### [facility] [address] [place] [address] Dr. Manuel Sandhu MANUAL DIFF REQ NO Normal [facility] Comment on above: Performed By: #### I NFLUAB #### [facility] [address] [place] [address] Dr. Manuel Sandhu MCH (RBC) [Entitic mass] 32.5 pg Normal 26.7-34.0 [facility] Comment on above: Performed By: #### I NFLUAB #### [facility] [address] [place] [address] Dr. Manuel Sandhu MCHC (RBC) [Mass/Vol] 33.7 g/dL Normal 29.9-35.2 [facility] Comment on above: Performed By: #### I NFLUAB #### [facility] [address] [place] [address] Dr. Manuel Sandhu MCV (RBC) [Entitic vol] 96.6 fL Normal 81.0-99.0 [facility] Comment on above: Performed By: #### I NFLUAB #### [facility] [address] [address] [address] Manuel Sandhu MONO # 0.6 103/ul Normal 0.3-0.8 [facility] Comment on above: Performed By: #### I NFLUAB #### [facility] [address] [place] [address] Dr. Manuel Sandhu Monocytes/100 WBC (Bld) 5.2 % Normal 1.7-12.0 [facility] Comment on above: Performed By: #### I NFLUAB #### [facility] [address] [place] [address] Dr. Manuel Sandhu NEUT # 8.2 103/ul Critically high 1.4-6.[address] [facility] Comment on above: Performed By: #### I NFLUAB #### [facility] [address] [place] [address] Dr. Manuel Sandhu Neutrophils/100 WBC (Bld) 69.4 % Normal 43.0-75.0 [facility] Comment on above: Performed By: #### I NFLUAB #### [facility] [address] [place] [address] Dr. Manuel Sandhu Platelet mean volume (Bld) [Entitic vol] 11.2 fL Normal 9.5-13.5 [facility] Comment on above: Performed By: #### I NFLUAB #### [facility] [address] [place] [address] Dr. Manuel Sandhu PLT 308 103/ul Normal 150-450 [facility] Comment on above: Performed By: #### I NFLUAB #### [facility] [address] [place] [address] Dr. Manuel Sandhu RBC 3.78 106/ul Critically low 4.20-5.[address] [facility] Comment on above: Performed By: #### I NFLUAB #### [facility] [address] [place] [address] Dr. Manuel Sandhu WBC 11.8 103/ul Critically high 4.0-11.0 [facility] Comment on above: Performed By: #### I NFLUAB #### [facility] [address] [place] [address] Dr. Manuel Sandhu D-DIMERon 07-19-2022 D-DIMER 0.29 mg/L FEU Normal <=0.59 [facility] Comment on above: Performed By: #### U MICRO, ERUR #### [facility] [address] [place] [address] Dr. Manuel Sandhu D-DIMER COMMENTS SEE BELOW Normal [facility] Comment on above: Result Comment: Incr [...] Performed By: #### U MICRO, ERUR #### [facility] [address] [place] [address] Dr. Manuel Sandhu LIPASEon 07-19-2022 Lipase [Catalytic activity/Vol] 119.0 U/L Normal 73.0-393.0 [facility] Comment on above: Performed By: #### C JENNIE PATRICK LIPA #### [facility] [address] [place] [address] Dr. Manuel Sandhu PROF 14(COMP METB)on 022 Albumin [Mass/Vol] 3.5 g/dL Normal 3.4-5.0 [facility] Comment on above: Performed By: #### C CELINA JENNIE, LIPA #### [facility] [address] [place] [address] Dr. Manuel Sandhu Albumin/Globulin [Mass ratio] 1.0 {ratio} Normal [facility] Comment on above: Performed By: #### C CELINA JENNIE LIPA #### [facility] [address] [place] [address] Dr. Manuel Sandhu ALP [Catalytic activity/Vol] 65 U/L Normal 46-116 [facility] Comment on above: Performed By: #### C JENNIE PATRICK LIPA #### [facility] [address] [address] [address] Manuel Sandhu ALT [Catalytic activity/Vol] 33 U/L Normal 14-59 [facility] Comment on above: Performed By: #### C MP, JENNIE, LIPA #### [facility] [address] [address] [address] Manuel Sandhu Anion gap [Moles/Vol] 10.8 mmol/L Normal [facility] Comment on above: Performed By: #### C MP, JENNIE, LIPA #### [facility] [address] [address] [address] Manuel Sandhu AST [Catalytic activity/Vol] 20 U/L Normal 15-37 [facility] Comment on above: Performed By: #### C MP, JENNIE, LIPA #### [facility] [address] [place] [address] Dr. Manuel Sandhu Bilirubin [Mass/Vol] 0.1 mg/dL Critically low 0.2-1.0 [facility] Comment on above: Performed By: #### C MP, JENNIE, LIPA #### [facility] [address] [address] [address] Manuel Sandhu Calcium [Mass/Vol] 8.7 mg/dL Normal 8.5-10.1 [facility] Comment on above: Performed By: #### C MP, JENNIE, LIPA #### [facility] [address] [address] [address] Manuel Sandhu Chloride [Moles/Vol] 105 mmol/L Normal 98-107 [facility] Comment on above: Performed By: #### C MP, JENNIE, LIPA #### [facility] [address] [address] [address] Manuel Sandhu CO2 [Moles/Vol] 24.4 mmol/L Normal 21.0-32.0 [facility] Comment on above: Performed By: #### C MP, JENNIE, LIPA #### [facility] [address] [address] [address] Manuel Sandhu Creatinine [Mass/Vol] 0.91 mg/dL Normal 0.55-1.02 [facility] Comment on above: Performed By: #### C MP, JENNIE, LIPA #### [facility] [address] [place] [address] Dr. Manuel Sandhu EGFR-AF BRITISH >60 Normal >=60 [facility] Comment on above: Performed By: #### C MP, JENNIE, LIPA #### [facility] [address] [place] [address] Dr. Manuel Sandhu EGFR-NON AF BRITISH >60 Normal >=60 [facility] Comment on above: Performed By: #### C MP, JENNIE, LIPA #### [facility] [address] [place] [address] Dr. Manuel Sandhu Globulin (S) [Mass/Vol] 3.4 g/dL Normal [facility] Comment on above: Performed By: #### C MP, JENNIE, LIPA #### [facility] [address] [place] [address] Dr. Manuel Sandhu Glucose [Mass/Vol] 127 mg/dL Critically high 74-106 [facility] Comment on above: Performed By: #### C MP JENNIE, LIPA #### [facility] [address] [place] [address] Dr. Manuel Sandhu Potassium [Moles/Vol] 3.2 mmol/L Critically low 3.5-5.1 [facility] Comment on above: Performed By: #### C MP, JENNIE, LIPA #### [facility] [address] [place] [address] Dr. Manuel Sandhu Protein [Mass/Vol] 6.9 g/dL Normal 6.4-8.2 [facility] Comment on above: Performed By: #### C MP, JENNIE, LIPA #### [facility] [address] [place] [address] Dr. Manuel Sandhu Sodium [Moles/Vol] 137 mmol/L Normal 136-145 [facility] Comment on above: Performed By: #### C MP, JENNIE, LIPA #### [facility] [address] [place] [address] Dr. Manuel Sandhu Urea nitrogen [Mass/Vol] 13.0 mg/dL Normal 7.0-18.0 [facility] Comment on above: Performed By: #### C JENNIE PATRICK LIPA #### [facility] [address] [place] [address] Dr. Manuel Sandhu Urea nitrogen/Creatinine [Mass ratio] 14.3 mg/mg Normal [facility] Comment on above: Performed By: #### C JENNIE PATRICK LIPA #### [facility] [address] [place] [address] Dr. Manuel Sandhu PROTIMEon 07-19-2022 INR Coag (PPP) [Relative time] 0.97 {INR} Normal [facility] Comment on above: Performed By: #### P TT, PT #### [facility] [address] [place] [address] Dr. Manuel Sandhu INR GUIDELINES SEE BELOW Normal [facility] Comment on above: Result Comment: CHUY RED INR: 2.0 - 3.0 CONDITIONS NOT LISTED BELOW 2.5 - 3.5 FOR PROSTHETIC HEART VALVE REPLACEMENT 2.5 - 3.5 RECURRENT THROMBOSIS Performed By: #### P TT, PT #### [facility] [address] [place] [address] Dr. Manuel Sandhu PT Coag (PPP) [Time] 10.5 s Normal 9.0-11.6 [facility] Comment on above: Performed By: #### P TT, PT #### [facility] [address] [place] [address] Dr. Manuel Sandhu PTTon 07-19-2022 aPTT Coag (Bld) [Time] 26.1 s Normal 22.3-36.2 [facility] Comment on above: Performed By: #### P TT, PT #### [facility] [address] [place] [address] Dr. Manuel Sandhu TROPONIN, HIGH SENSITIVITYon 07-19-2022 HSTROP 5.4 pg/mL Normal 4.0-51.3 [facility] Comment on above: Result Comment: CUT- OFF POINTS HAVE BEEN ESTABLISHED BASED ON THE FOURTH UNIVERSAL DEFINITIONS OF MYOCARDIAL INFARCTION. THE UPPER REFERENCE LIMIT (URL) OF TROPONIN, DEFINED THE 99TH PERCENTILE OF cTnI DISTRIBUTION IN A REFERENCE POPULATION, HAS BEEN CONFIRMED THE DECISION THRESHOLD FOR SD DIAGNOSIS. Performed By: #### U AVNI [place] #### [facility] [address] [address] [address] Manuel Sandhu HSTROP 5.1 pg/mL Normal 4.0-51.3 [facility] Comment on above: Result Comment: CUT- OFF POINTS HAVE BEEN ESTABLISHED BASED ON THE FOURTH UNIVERSAL DEFINITIONS OF MYOCARDIAL INFARCTION. THE UPPER REFERENCE LIMIT (URL) OF TROPONIN, DEFINED THE 99TH PERCENTILE OF cTnI DISTRIBUTION IN A REFERENCE POPULATION, HAS BEEN CONFIRMED THE DECISION THRESHOLD FOR SD DIAGNOSIS. Performed By: #### C JENNIE PATRICK LIPA #### [facility] [address] [address] [address] Manuel Sandhu XR CHEST 1 Von [...] LUCIANA ALLEN Date: 2022-07-19 19:28 Normal [facility] Covid-19 PCR (CVDTBH)on 05-16 SARS-CoV-2 (COVID-19) RNA JOSÉ MIGUEL+probe Ql (Unsp spec) Not detected Normal NOT DETECTED [facility] Comment on above: Result Comment: When [...] for this test is supported by the [place] of Health and Human Service's declaration that [...] By: #### C JENNIE PATRICK LIPA #### [facility] [address] [address] [address] Manuel Sandhu XR CHEST 2 Von [...] CAROLYNE RALPH Date: 2022-06-12 10:12 Normal [facility] Covid-19 PCR (CVDTB)on 05-15 SARS-CoV-2 (COVID-19) RNA JOSÉ MIGUEL+probe Ql (Unsp spec) Not detected Normal NOT DETECTED [facility] Comment on above: Result Comment: When [...] for this test is supported by the [place] of Health and Human Service's declaration that [...] used). Performed By: #### I NFLUAB #### [facility] [address] [address] [address] Manuel Sandhu CHEMISTRYOrdered By: SYSTEM SYSTEM on 04-20-2022 Anion gap [Moles/Vol] 12 mmol/L Normal 6 - 16 mEq/L F C Remisol Calcium [Mass/Vol] 9.5 mg/dL Normal 8.9 [...] 13.1 E9/L High 4.0 - 11.0 E9/L [facility] HemeAutoSS Covid-19 PCR (CVDTBH)on 03-15 SARS-CoV-2 (COVID-19) RNA JOSÉ MIGUEL+probe Ql (Unsp spec) Detected Critically abnormal NOT DETECTED [facility] Comment on above: Result Comment: This test is not yet approved or cleared by the [place] FDA. When there are no FDA-approved or cleared tests available, and other criteria are met, FDA can make tests available under an emergency access mechanism called an Emergency Use Authorization (EUA). The EUA for this test is supported by the [place] of Health and Human Service's declaration that [...] By: #### C JENNIE PATRICK LIPA #### [facility] [address] [place] [address] Dr. Manuel Sandhu GROUP A STREP CULTUREon 03-15 S. pyogenes Ag Ql (Unsp spec) Culture Observations: NEGATIVE FOR GROUP A STREPTOCOCCUS. Normal [facility] Comment on above: Performed By: #### U MICRO, ERUR #### [facility] [address] [address] [address] Manuel Sandhu INFLUENZA A AND B AGon 04-07 INFLUENZA A AG Negative Normal NEGATIVE SEE COMMENT [facility] Comment on above: Performed By: #### I NFLUAB #### [facility] [address] [address] [address] Manuel Sandhu INFLUENZA B AG Negative Normal NEGATIVE SEE COMMENT [facility] Comment on above: Performed By: #### I NFLUAB #### [facility] [address] [address] [address] Manuel Sandhu INTERNAL CONTROLS Within Normal Limits Normal Wi thin Normal Limits [facility] Comment on above: Performed By: #### I NFLUAB #### [facility] [address] [address] [address] Manuel Sandhu STREPT SCREENon 04-07-2022 STREP SCREEN A Negative Normal NEGATIVE [facility] Comment on above: Performed By: #### U MICRO, ERUR #### [facility] [address] [address] [address] Manuel Sandhu CHEMISTRYOrdered By: SYSTEM SYSTEM [...] 138 mmol/L Normal 135 - 145 mmol/L FT [...] 7.3 E9/L Normal 2.0 - 7.5 E9/L FT [facility] HEMATOLOGYOrdered By: Hansa grover on 04-03-2022 Erythrocyte distribution width (RBC) [Ratio] 14.1 % Normal 10.9 - 14.2 % FT [facility] Hematocrit (Bld) [Volume fraction] 37.3 % Normal 34.0 - 46.0 % FT [facility] Hemoglobin (Bld) [Mass/Vol] 12.4 g/dL Normal 12.0 - 16.0 gm/dL FT [facility] MCH (RBC) [Entitic mass] 31.6 pg [...] PM) Normal Negative [facility] UA Auto SS Van Lear.plasma/Lithiu m.RBC (Bld) [Mass ratio] 0-3 /HPF Normal 0-3/HPF [facility] UA Auto SS Nitrite Ql (U) Negative (04/03/22 6:51 PM) Normal Negative [facility] UA Auto SS pH (U) 5.0 *NA* (04/03/22 6:51 PM) Invalid Interpretation Code 5.0 - 9.0 [facility] UA Auto SS Protein (U) [Mass/Vol] Negative (04/03/22 6:51 PM) Normal Negative [facility] UA Auto SS Specific gravity (U) [Rel density] 1.010 *NA* (04/03/22 6:51 PM) Invalid Interpretation Code 1.005 - 1.030 [facility] UA Auto SS UA Spec Desc Clean Catch (04/03/22 6:51 PM) Normal [facility] UA Auto SS Urobilinogen Qn (U) [id number] {Lucila'U}/dL Normal 0.0 - 1.0 EU/dL [facility] UA Auto SS WBC Auto Ql (U) Negative (04/03/22 6:51 PM) Normal Negative [facility] UA Auto SS WBC LM.HPF (Urine sed) [#/Area] 0-5 /HPF Normal 0-5/HPF [facility] UA Auto SS GROUP A STREP CULTUREon 01-13 S. pyogenes Ag Ql (Unsp spec) Culture Observations: NEGATIVE FOR GROUP A STREPTOCOCCUS. Normal [facility] Comment on above: Performed By: #### I NFLUAB #### [facility] [address] [place] [address] Dr. Manuel Sandhu STREPT SCREENon 02-08-2022 STREP SCREEN A Negative Normal NEGATIVE [facility] Comment on above: Performed By: #### I NFLUAB #### [facility] [address] [place] [address] Dr. Manuel Sandhu CBC AUTO DIFFon 01-30-2022 BASO # 0.1 103/ul Normal 0.0-0.1 [facility] Comment on above: Performed By: #### C BC #### [facility] [address] [place] [address] Dr. Manuel Sandhu Basophils/100 WBC (Bld) 0.4 % Normal 0.2-2.0 [facility] Comment on above: Performed By: #### C BC #### [facility] [address] [place] [address] Dr. Manuel Sandhu EO # 0.4 103/ul Normal 0.0-0.7 [facility] Comment on above: Performed By: #### C BC #### [facility] [address] [place] [address] Dr. Manuel Sandhu Eosinophils/100 WBC (Bld) 3.0 % Normal 0.9-7.0 [facility] Comment on above: Performed By: #### C BC #### [facility] [address] [place] [address] Dr. Manuel Sandhu Erythrocyte distribution width (RBC) [Ratio] 13.3 % Normal 11.0-15.0 [facility] Comment on above: Performed By: #### C BC #### [facility] [address] [place] [address] Dr. Manuel Sandhu Hematocrit (Bld) [Volume fraction] 36.8 % Normal 36.0-48.0 [facility] Comment on above: Performed By: #### C BC #### [facility] [address] [place] [address] Dr. Manuel Sandhu Hemoglobin (Bld) [Mass/Vol] 12.2 g/dL Normal 12.0-16.0 [facility] Comment on above: Performed By: #### C BC #### [facility] [address] [place] [address] Dr. Manuel Sandhu IG # 0.04 10e3/ul Critically high 0.00-0.03 [facility] Comment on above: Performed By: #### C BC #### [facility] [address] [place] [address] Dr. Manuel Sandhu IG % 0.3 % Normal 0.0-0.5 [facility] Comment on above: Performed By: #### C BC #### [facility] [address] [place] [address] Dr. Manuel Sandhu LYMPH # 2.8 103/ul Normal 1.2-3.8 [facility] Comment on above: Performed By: #### C BC #### [facility] [address] [place] [address] Dr. Manuel Sandhu Lymphocytes/100 WBC (Bld) 23.0 % Normal 20.5-60.0 [facility] Comment on above: Performed By: #### C BC #### [facility] [address] [place] [address] Dr. Manuel Sandhu MANUAL DIFF REQ NO Normal [facility] Comment on above: Performed By: #### C BC #### [facility] [address] [place] [address] Dr. Manuel Sandhu MCH (RBC) [Entitic mass] 32.1 pg Normal 26.7-34.0 [facility] Comment on above: Performed By: #### C BC #### [facility] [address] [place] [address] Dr. Manuel Sandhu MCHC (RBC) [Mass/Vol] 33.2 g/dL Normal 29.9-35.2 [facility] Comment on above: Performed By: #### C BC #### [facility] [address] [place] [address] Dr. Manuel Sandhu MCV (RBC) [Entitic vol] 96.8 fL Normal 81.0-99.0 [facility] Comment on above: Performed By: #### C BC #### [facility] [address] [place] [address] Dr. Manuel Sandhu MONO # 0.7 103/ul Normal 0.3-0.8 [facility] Comment on above: Performed By: #### C BC #### [facility] [address] [place] [address] Dr. Manuel Sandhu Monocytes/100 WBC (Bld) 5.6 % Normal 1.7-12.0 [facility] Comment on above: Performed By: #### C BC #### [facility] [address] [place] [address] Dr. Manuel Sandhu NEUT # 8.2 103/ul Critically high 1.4-6.[address] [facility] Comment on above: Performed By: #### C BC #### [facility] [address] [place] [address] Dr. Manuel Sandhu Neutrophils/100 WBC (Bld) 67.7 % Normal 43.0-75.0 [facility] Comment on above: Performed By: #### C BC #### [facility] [address] [place] [address] Dr. Manuel Sandhu Platelet mean volume (Bld) [Entitic vol] 11.2 fL Normal 9.5-13.5 [facility] Comment on above: Performed By: #### C BC #### [facility] [address] [place] [address] Dr. Manuel Sandhu PLT 312 103/ul Normal 150-450 [facility] Comment on above: Performed By: #### C BC #### [facility] [address] [address] [address] Manuel Sandhu RBC 3.80 106/ul Critically low 4.20-5.40 [facility] Comment on above: Performed By: #### C BC #### [facility] [address] [address] [address] Manuel Sandhu WBC 12.1 103/ul Critically high 4.0-11.0 [facility] Comment on above: Performed By: #### C BC #### [facility] [address] [place] [address] Dr. Manuel Sandhu Covid-19 PCR (CVDTB)on 01-12 SARS-CoV-2 (COVID-19) RNA JOSÉ MIGUEL+probe Ql (Unsp spec) Not detected Normal NOT DETECTED [facility] Comment on above: Result Comment: This test is not yet approved or cleared by the [place] FDA. When there are no FDA-approved or cleared tests available, and other criteria are met, FDA can make tests available under an emergency access mechanism called an Emergency Use Authorization (EUA). The EUA for this test is supported by the [place] of Health and Human Service's (HHS's) declaration [...] SARS-CoV-2. Performed By: #### C VDTBH #### [facility] [address] [address] [address] Manuel Sandhu DRUG SCREEN RAPID (URINE)on 01-30-2022 AMP Negative Normal NEGATIVE [facility] Comment on above: Performed By: #### U MICRO, ERUR #### [facility] [address] [address] [address] Manuel Sandhu BAR Negative Normal NEGATIVE [facility] Comment on above: Performed By: #### U MICRO, ERUR #### [facility] [address] [address] [address] Manuel Sandhu BUP Negative Normal NEGATIVE [facility] Comment on above: Performed By: #### U MICRO, ERUR #### [facility] [address] [address] [address] Manuel Sandhu BZO Negative Normal NEGATIVE [facility] Comment on above: Performed By: #### U MICRO, ERUR #### [facility] [address] [address] [address] Manuel Sandhu WISAM Negative Normal NEGATIVE [facility] Comment on above: Performed By: #### U MICRO, ERUR #### [facility] [address] [address] [address] Manuel Sandhu CUT-OFFS SEE BELOW Normal [facility] Comment on above: Result Comment: AMP (Amphetamine): [...] Performed By: #### U MICRO, ERUR #### [facility] [address] [place] [address] Dr. Manuel Sandhu DRUG CUT HEADER DRUG CLASS TEST SYST EM CUT-OFF CONCENTRATIONS ARE FOLLOWS: Normal [facility] Comment on above: Performed By: #### U MICRO, ERUR #### [facility] [address] [address] [address] Manuel Sandhu mAMP Negative Normal NEGATIVE [facility] Comment on above: Performed By: #### U MICRO, ERUR #### [facility] [address] [address] [address] Manuel Sandhu MTD Negative Normal NEGATIVE [facility] Comment on above: Performed By: #### U MICRO, ERUR #### [facility] [address] [address] [address] Manuel Sandhu OPI Negative Normal NEGATIVE [facility] Comment on above: Performed By: #### U MICRO, ERUR #### [facility] [address] [place] [address] Dr. Manuel Sandhu OXY Negative Normal NEGATIVE [facility] Comment on above: Performed By: #### U MICRO, ERUR #### [facility] [address] [address] [address] Manuel Sandhu PCP Negative Normal NEGATIVE [facility] Comment on above: Performed By: #### U MICRO, ERUR #### [facility] [address] [address] [address] Manuel Sandhu PPX Negative Normal NEGATIVE [facility] Comment on above: Performed By: #### U MICRO, ERUR #### [facility] [address] [address] [address] Manuel Sandhu TCA Negative Normal NEGATIVE [facility] Comment on above: Performed By: #### U MICRO, ERUR #### [facility] [address] [address] [address] Manuel Sandhu THC Negative Normal NEGATIVE [facility] Comment on above: Performed By: #### U MICRO, ERUR #### [facility] [address] [place] [address] Dr. Manuel Sandhu ER URINE PROFILEon 2 Bilirubin Ql (U) Negative Normal NEGATIVE [facility] Comment on above: Performed By: #### U MICRO, ERUR #### [facility] [address] [address] [address] Manuel Sandhu Clarity (U) CLEAR Normal CLEAR [facility] Comment on above: Performed By: #### U MICRO, ERUR #### [facility] [address] [address] [address] Manuel Sandhu Color (U) LT. YELLOW Normal YELLOW [facility] Comment on above: Performed By: #### U MICRO, ERUR #### [facility] [address] [address] [address] Manuel Sandhu ERUAHD A micrscopic examina tion will be performed if indicated. Normal [facility] Comment on above: Performed By: #### U MICRO, ERUR #### [facility] [address] [place] [address] Dr. Maneul Sandhu Glucose Ql (U) Negative Normal NEGATIVE [facility] Comment on above: Performed By: #### U MICRO, ERUR #### [facility] [address] [address] [address] Manuel Sandhu Hemoglobin Ql (U) Negative Normal NEGATIVE [facility] Comment on above: Performed By: #### U MICRO, ERUR #### [facility] [address] [place] [address] Dr. Manuel Sandhu Ketones Ql (U) Negative Normal NEGATIVE [facility] Comment on above: Performed By: #### U MICRO, ERUR #### [facility] [address] [address] [address] Manuel Sandhu LEUKOCYTES Negative Normal NEGATIVE [facility] Comment on above: Performed By: #### U MICRO, ERUR #### [facility] [address] [address] [address] Manuel Sandhu Nitrite Ql (U) Negative Normal NEGATIVE [facility] Comment on above: Performed By: #### U MICRO, ERUR #### [facility] [address] [place] [address] Dr. Manuel Sandhu pH (U) 5.5 [pH] Normal 5-9 [facility] Comment on above: Performed By: #### U MICRO, ERUR #### [facility] [address] [address] [address] Manuel Sandhu SPEC GRAVITY <=1.005 Abnormal 1.005-<=1.02 5 [facility] Comment on above: Performed By: #### U MICRO, ERUR #### [facility] [address] [address] [address] Manuel Sandhu UA PROTEIN Negative Normal NEGATIVE/ TRACE [facility] Comment on above: Performed By: #### U MICRO, ERUR #### [facility] [address] [address] [address] Manuel Sandhu UR MICRO IND NOT INDICATED Normal [facility] Comment on above: Performed By: #### U MICRO, ERUR #### [facility] [address] [address] [address] Manuel Sandhu Urobilinogen Qn (U) 0.2 {Lucila'U}/dL Normal 0.2 - 1. 0 [facility] Comment on above: Performed By: #### U MICRO, ERUR #### [facility] [address] [address] [address] Manuel Sandhu ETHANOL (BLD ALC)on 01-31-20 22 ALC NOTE NOTE: 80 mg/dl is th e legal limit for a blood alcohol level Normal [facility] Comment on above: Performed By: #### I NFLUAB #### [facility] [address] [address] [address] Manuel Sandhu Ethanol [Mass/Vol] 47 mg/dL Normal [facility] Comment on above: Performed By: #### I NFLUAB #### [facility] [address] [address] [address] Manuel Sandhu PREG HCG QUALon 01-30-2022 , QUAL Negative Normal NEGATIVE [facility] Comment on above: Performed By: #### U MICRO, ERUR #### [facility] [address] [address] [address] Manuel Sandhu PROF 14(COMP METB)on 022 Albumin [Mass/Vol] 3.8 g/dL Normal 3.4-5.0 [facility] Comment on above: Performed By: #### I NFLUAB #### [facility] [address] [address] [address] Manuel Sandhu Albumin/Globulin [Mass ratio] 1.1 {ratio} Normal [facility] Comment on above: Performed By: #### I NFLUAB #### [facility] [address] [address] [address] Manuel Sandhu ALP [Catalytic activity/Vol] 88 U/L Normal 46-116 [facility] Comment on above: Performed By: #### I NFLUAB #### [facility] [address] [address] [address] Manuel Sandhu ALT [Catalytic activity/Vol] 30 U/L Normal 14-59 [facility] Comment on above: Performed By: #### I NFLUAB #### [facility] [address] [address] [address] Manuel Sandhu Anion gap [Moles/Vol] 17.3 mmol/L Normal [facility] Comment on above: Performed By: #### I NFLUAB #### [facility] [address] [address] [address] Manuel Sandhu AST [Catalytic activity/Vol] 17 U/L Normal 15-37 [facility] Comment on above: Performed By: #### I NFLUAB #### [facility] [address] [address] [address] Manuel Sandhu Bilirubin [Mass/Vol] 0.2 mg/dL Normal 0.2-1.0 [facility] Comment on above: Performed By: #### I NFLUAB #### [facility] [address] [address] [address] Manuel Sandhu Calcium [Mass/Vol] 8.9 mg/dL Normal 8.5-10.1 [facility] Comment on above: Performed By: #### I NFLUAB #### [facility] [address] [address] [address] Manuel Sandhu Chloride [Moles/Vol] 109 mmol/L Critically high 98-107 [facility] Comment on above: Performed By: #### I NFLUAB #### [facility] [address] [address] [address] Manuel Sandhu CO2 [Moles/Vol] 20.2 mmol/L Critically low 21.0-32.0 [facility] Comment on above: Performed By: #### I NFLUAB #### [facility] [address] [address] [address] Manuel Sandhu Creatinine [Mass/Vol] 0.69 mg/dL Normal 0.55-1.02 [facility] Comment on above: Performed By: #### I NFLUAB #### [facility] [address] [address] [address] Manuel Sandhu EGFR-AF BRITISH >60 Normal >=60 [facility] Comment on above: Performed By: #### I NFLUAB #### [facility] [address] [address] [address] Manuel Sandhu EGFR-NON AF BRITISH >60 Normal >=60 [facility] Comment on above: Performed By: #### I NFLUAB #### [facility] [address] [address] [address] Manuel Sandhu Globulin (S) [Mass/Vol] 3.6 g/dL Normal [facility] Comment on above: Performed By: #### I NFLUAB #### [facility] [address] [address] [address] Manuel Sandhu Glucose [Mass/Vol] 79 mg/dL Normal 74-106 [facility] Comment on above: Performed By: #### I NFLUAB #### [facility] [address] [address] [address] Manuel Sandhu Potassium [Moles/Vol] 3.5 mmol/L Normal 3.5-5.1 [facility] Comment on above: Performed By: #### I NFLUAB #### [facility] [address] [address] [address] Manuel Sandhu Protein [Mass/Vol] 7.4 g/dL Normal 6.4-8.2 [facility] Comment on above: Performed By: #### I NFLUAB #### [facility] [address] [place] [address] Dr. Manuel Sandhu Sodium [Moles/Vol] 143 mmol/L Normal 136-145 [facility] Comment on above: Performed By: #### I NFLUAB #### [facility] [address] [place] [address] Dr. Manuel Sandhu Urea nitrogen [Mass/Vol] 18.0 mg/dL Normal 7.0-18.0 [facility] Comment on above: Performed By: #### I NFLUAB #### [facility] [address] [place] [address] Dr. Manuel Sandhu Urea nitrogen/Creatinine [Mass ratio] 26.1 mg/mg Normal [facility] Comment on above: Performed By: #### I NFLUAB #### [facility] [address] [place] [address] Dr. Manuel Sandhu AMYLASEon 11-16-2021 Amylase [Catalytic activity/Vol] 60 U/L Normal 31-110 [facility] Comment on above: Performed By: #### C MP, JENNIE, LIPA #### [facility] [address] [place] [address] Dr. Manuel Sandhu CBC AUTO DIFFon 11-16-2021 BASO # 0.1 103/ul Normal 0.0-0.1 [facility] Comment on above: Performed By: #### C MP, JENNIE, LIPA #### [facility] [address] [place] [address] Dr. Manuel Sandhu Basophils/100 WBC (Bld) 0.5 % Normal 0.2-2.0 [facility] Comment on above: Performed By: #### C MP, JENNIE, LIPA #### [facility] [address] [place] [address] Dr. Manuel Sandhu EO # 0.3 103/ul Normal 0.0-0.7 [facility] Comment on above: Performed By: #### C MP, JENNIE, LIPA #### [facility] [address] [place] [address] Dr. Manuel Sandhu Eosinophils/100 WBC (Bld) 3.1 % Normal 0.9-7.0 [facility] Comment on above: Performed By: #### C JENNIE PATRICK LIPA #### [facility] [address] [place] [address] Dr. Manule Sandhu Erythrocyte distribution width (RBC) [Ratio] 13.4 % Normal 11.0-15.0 [facility] Comment on above: Performed By: #### C JENNIE PATRICK LIPA #### [facility] [address] [place] [address] Dr. Manuel Sandhu Hematocrit (Bld) [Volume fraction] 39.0 % Normal 36.0-48.0 [facility] Comment on above: Performed By: #### C JENNIE PATRICK LIPA #### [facility] [address] [place] [address] Dr. Manuel Sandhu Hemoglobin (Bld) [Mass/Vol] 12.8 g/dL Normal 12.0-16.0 [facility] Comment on above: Performed By: #### C JENNIE PATRICK LIPA #### [facility] [address] [place] [address] Dr. Manuel Sandhu IG # 0.03 10e3/ul Normal 0.00-0.03 [facility] Comment on above: Performed By: #### C JENNIE PATRICK LIPA #### [facility] [address] [place] [address] Dr. Manuel Sandhu IG % 0.3 % Normal 0.0-0.5 [facility] Comment on above: Performed By: #### C JENNIE PATRICK LIPA #### [facility] [address] [place] [address] Dr. Manuel Sandhu LYMPH # 2.8 103/ul Normal 1.2-3.8 [facility] Comment on above: Performed By: #### C JENNIE PATRICK LIPA #### [facility] [address] [place] [address] Dr. Manuel Sandhu Lymphocytes/100 WBC (Bld) 29.9 % Normal 20.5-60.0 [facility] Comment on above: Performed By: #### C MP, JENNIE, LIPA #### [facility] [address] [place] [address] Dr. Manuel Sandhu MANUAL DIFF REQ NO Normal [facility] Comment on above: Performed By: #### C MP, JENNIE, LIPA #### [facility] [address] [place] [address] Dr. Manuel Sandhu MCH (RBC) [Entitic mass] 32.2 pg Normal 26.7-34.0 [facility] Comment on above: Performed By: #### C MP, JENNIE, LIPA #### [facility] [address] [place] [address] Dr. Manuel Sandhu MCHC (RBC) [Mass/Vol] 32.8 g/dL Normal 29.9-35.2 [facility] Comment on above: Performed By: #### C MP, JENNIE, LIPA #### [facility] [address] [place] [address] Dr. Manuel Sandhu MCV (RBC) [Entitic vol] 98.0 fL Normal 81.0-99.0 [facility] Comment on above: Performed By: #### C MP, JENNIE, LIPA #### [facility] [address] [place] [address] Dr. Manuel Sandhu MONO # 0.7 103/ul Normal 0.3-0.8 [facility] Comment on above: Performed By: #### C MP, JENNIE, LIPA #### [facility] [address] [place] [address] Dr. Manuel Sandhu Monocytes/100 WBC (Bld) 7.7 % Normal 1.7-12.0 [facility] Comment on above: Performed By: #### C MP, JENNIE, LIPA #### [facility] [address] [place] [address] Dr. Manuel Sandhu NEUT # 5.5 103/ul Normal 1.4-6.5 [facility] Comment on above: Performed By: #### C MP, JENNIE, LIPA #### [facility] [address] [place] [address] Dr. Manuel Sandhu Neutrophils/100 WBC (Bld) 58.5 % Normal 43.0-75.0 [facility] Comment on above: Performed By: #### C JENNIE PATRICK LIPA #### [facility] [address] [address] [address] Manuel Sandhu Platelet mean volume (Bld) [Entitic vol] 11.7 fL Normal 9.5-13.5 [facility] Comment on above: Performed By: #### C JENNIE PATRICK LIPA #### [facility] [address] [address] [address] aMnuel Sandhu PLT 301 103/ul Normal 150-450 [facility] Comment on above: Performed By: #### C JENNIE PATRICK LIPA #### [facility] [address] [address] [address] Manuel Sandhu RBC 3.98 106/ul Critically low 4.20-5.40 [facility] Comment on above: Performed By: #### C JENNIE PATRICK LIPA #### [facility] [address] [place] [address] Dr. Manuel Sandhu WBC 9.3 103/ul Normal 4.0-11.0 [facility] Comment on above: Performed By: #### C JENNIE PATRICK LIPA #### [facility] [address] [place] [address] ABD/PELVIS WO CONon [...] HARMONY HARRELL Date: 2021-11-16 19:55 Normal [facility] ER URINE PROFILEon 2 Bilirubin Ql (U) Negative Normal NEGATIVE [facility] Comment on above: Performed By: #### C MP, JENNIE, LIPA #### [facility] [address] [place] [address] Dr. Manuel Sandhu Clarity (U) CLEAR Normal CLEAR [facility] Comment on above: Performed By: #### C MP, JENNIE, LIPA #### [facility] [address] [address] [address] Manuel Sandhu Color (U) LT. YELLOW Normal YELLOW [facility] Comment on above: Performed By: #### C MP, JENNIE, LIPA #### [facility] [address] [address] [address] Manuel Sandhu ERUAHD A micrscopic examina tion will be performed if indicated. Normal [facility] Comment on above: Performed By: #### C MP, JENNIE, LIPA #### [facility] [address] [address] [address] Manuel Sandhu Glucose Ql (U) Negative Normal NEGATIVE [facility] Comment on above: Performed By: #### C MP, JENNIE, LIPA #### [facility] [address] [place] [address] Dr. Manuel Sandhu Hemoglobin Ql (U) Negative Normal NEGATIVE [facility] Comment on above: Performed By: #### C MP, JENNIE, LIPA #### [facility] [address] [place] [address] Dr. Manuel Sandhu Ketones Ql (U) Negative Normal NEGATIVE [facility] Comment on above: Performed By: #### C MP, JENNIE, LIPA #### [facility] [address] [place] [address] Dr. Manuel Sandhu LEUKOCYTES Negative Normal NEGATIVE [facility] Comment on above: Performed By: #### C MP, JENNIE, LIPA #### [facility] [address] [place] [address] Dr. Manuel Sandhu Nitrite Ql (U) Negative Normal NEGATIVE [facility] Comment on above: Performed By: #### C MP, JENNIE, LIPA #### [facility] [address] [place] [address] Dr. Manuel Sandhu pH (U) 7.0 [pH] Normal 5-9 [facility] Comment on above: Performed By: #### C MP, JENNIE, LIPA #### [facility] [address] [place] [address] Dr. Manuel Sandhu SPEC GRAVITY <=1.005 Abnormal 1.005-<=1.02 5 [facility] Comment on above: Performed By: #### C JENNIE PATRICK, LIPA #### [facility] [address] [place] [address] Dr. Manuel Sandhu UA PROTEIN Negative Normal NEGATIVE/ TRACE [facility] Comment on above: Performed By: #### C JENNIE PATRICK, LIPA #### [facility] [address] [place] [address] Dr. Manuel Sandhu UR MICRO IND NOT INDICATED Normal [facility] Comment on above: Performed By: #### C JENNIE PATRICK, LIPA #### [facility] [address] [place] [address] Dr. Manuel Sandhu Urobilinogen Qn (U) 0.2 {Lucila'U}/dL Normal 0.2 - 1. 0 [facility] Comment on above: Performed By: #### C JENNIE PATRICK, LIPA #### [facility] [address] [place] [address] Dr. Manuel Sandhu LIPASEon 11-16-2021 Lipase [Catalytic activity/Vol] 78.0 U/L Normal 23.0-300.0 [facility] Comment on above: Performed By: #### C JENNIE PATRICK, LIPA #### [facility] [address] [place] [address] Dr. Manuel Sandhu URon 11-16-2021 , QUAL Negative Normal NEGATIVE [facility] Comment on above: Performed By: #### C CELINA JENNIE, LIPA #### [facility] [address] [place] [address] Dr. Manuel Sandhu PROF 14(COMP METB)on 022 Albumin [Mass/Vol] 4.1 g/dL Normal 3.5-5.0 [facility] Comment on above: Performed By: #### C MP JENNIE, LIPA #### [facility] [address] [place] [address] Dr. Manuel Sandhu Albumin/Globulin [Mass ratio] 1.1 {ratio} Normal [facility] Comment on above: Performed By: #### C MP, JENNIE, LIPA #### [facility] [address] [address] [address] Manuel Sandhu ALP [Catalytic activity/Vol] 102 U/L Normal 38-126 [facility] Comment on above: Performed By: #### C MP, JENNIE, LIPA #### [facility] [address] [address] [address] Manuel Sandhu ALT [Catalytic activity/Vol] 39 U/L Normal 9-52 [facility] Comment on above: Performed By: #### C MP, JENNIE, LIPA #### [facility] [address] [address] [address] Manuel Sandhu Anion gap [Moles/Vol] 11.5 mmol/L Normal [facility] Comment on above: Performed By: #### C MP, JENNIE, LIPA #### [facility] [address] [place] [address] Dr. Manuel Sandhu AST [Catalytic activity/Vol] 28 U/L Normal 14-36 [facility] Comment on above: Performed By: #### C MP, JENNIE, LIPA #### [facility] [address] [address] [address] Manuel Sandhu Bilirubin [Mass/Vol] 0.2 mg/dL Normal 0.2-1.3 [facility] Comment on above: Performed By: #### C MP, JENNIE, LIPA #### [facility] [address] [address] [address] Manuel Sandhu Calcium [Mass/Vol] 9.1 mg/dL Normal 8.4-10.2 [facility] Comment on above: Performed By: #### C MP, JENNIE, LIPA #### [facility] [address] [place] [address] Dr. Manuel Sandhu Chloride [Moles/Vol] 105 mmol/L Normal 98-107 [facility] Comment on above: Performed By: #### C MP, JENNIE, LIPA #### [facility] [address] [address] [address] Manuel Sandhu CO2 [Moles/Vol] 25.0 mmol/L Normal 22.0-30.0 [facility] Comment on above: Performed By: #### C JENNIE PATRICK, LIPA #### [facility] [address] [address] [address] Manuel Sandhu Creatinine [Mass/Vol] 0.77 mg/dL Normal 0.52-1.04 [facility] Comment on above: Performed By: #### C MP JENNIE, LIPA #### [facility] [address] [address] [address] Manuel Sandhu EGFR-AF BRITISH >60 Normal >=60 [facility] Comment on above: Performed By: #### C CELINA JENNIE, LIPA #### [facility] [address] [address] [address] Manuel Sandhu EGFR-NON AF BRITISH >60 Normal >=60 [facility] Comment on above: Performed By: #### C CELINA JENNIE, LIPA #### [facility] [address] [address] [address] Manuel Sandhu Globulin (S) [Mass/Vol] 3.8 g/dL Normal [facility] Comment on above: Performed By: #### C JENNIE PATRICK, LIPA #### [facility] [address] [place] [address] Dr. Manuel Sandhu Glucose [Mass/Vol] 85 mg/dL Normal 74-106 [facility] Comment on above: Performed By: #### C CELINA JENNIE, LIPA #### [facility] [address] [address] [address] Manuel Sandhu Potassium [Moles/Vol] 3.5 mmol/L Normal 3.4-5.0 [facility] Comment on above: Performed By: #### C CELINA JENNIE, LIPA #### [facility] [address] [address] [address] Manuel Sandhu Protein [Mass/Vol] 7.9 g/dL Normal 6.1-8.2 [facility] Comment on above: Performed By: #### C MP JENNIE, LIPA #### [facility] [address] [address] [address] Manuel Sandhu Sodium [Moles/Vol] 138 mmol/L Normal 137-145 [facility] Comment on above: Performed By: #### C JENNIE PATRICK LIPA #### [facility] [address] [address] [address] Manuel Sandhu Urea nitrogen [Mass/Vol] 18.0 mg/dL Critically high 7.0-17.0 [facility] Comment on above: Performed By: #### C JENNIE PATRICK LIPA #### [facility] [address] [address] [address] Manuel Sandhu Urea nitrogen/Creatinine [Mass ratio] 23.4 mg/mg Normal [facility] Comment on above: Performed By: #### C JENNIE PATRICK LIPA #### [facility] [address] ABDOMEN PELVIS W IV CONTR AST Additional Contrast? OralOrdered By: Gamaliel Vickers on 02-04-2021 1. Partially improve d focal [...] in the pelvis, which could be physiologic. [employer] Phone: EXAMINATION: CT OF T HE ABDOMEN [...] grade 1 anterolisthesis at L5-S1 is unchanged. [employer] Work Phone: Dario, pn Incoming Radiant Results From [employer] - 02/04/2021 4:32 PM EDT EXAMINATION: CT [...] in the pelvis, which could be physiologic. [employer] Phone: [employer] Phone: Basic Metabolic Panel w/ Ref brannon to MGOrdered By: Ruiz Joel on 02-01-2021 Anion gap [Moles/Vol] 15 mmol/L 9 - 17 mmol/L [employer] Phone: Calcium [Mass/Vol] 8.5 mg/dL Low 8.6 - 10. 4 mg/dL [employer] Phone: Chloride [Moles/Vol] 107 mmol/L 98 - 10 7 mmol/L [employer] Phone: CO2 [Moles/Vol] 16 mmol/L Low 20 - 31 mmol/L [employer] Phone: Creatinine [Mass/Vol] 0.36 mg/dL Low 0.50 - 0.90 mg/dL [employer] Phone: GFR >60 >60 mL/min [employer] Phone: GFR Non- >60 >60 mL/min [employer] Phone: GFR/1.73 sq M.predicted MDRD (S/P/Bld) [Vol rate/Area] [employer] Phone: Comment on above: Average GFR for 30-3 9 years old: 107 mL/min/1.73sq m Chronic Kidney Disease: <60 mL/min/1.73sq m Kidney failure: <15 mL/min/1.73sq m eGFR calculated using average adult body mass. Additional eGFR calculator available at: http://www.HubHub.com/multiple_crcl_2012.htm GFR/1.73 sq M.predicted MDRD (S/P/Bld) [Vol rate/Area] NOT REPORTED [employer] Phone: Glucose [Mass/Vol] 79 mg/dL 70 - 99 mg/dL [employer] Phone: Interpretation and review of laboratory results Abnormal [employer] Phone: Potassium [Moles/Vol] 3.7 mmol/L 3.7 - 5.3 mmol/L [employer] Phone: Sodium [Moles/Vol] 138 mmol/L 135 - 144 mmol/L [employer] Phone: Urea nitrogen (BldV) [Mass/Vol] 2 mg/dL Low 6 - 20 mg/dL [employer] Work Phone: Urea nitrogen/Creatinine (Bld) [Mass ratio] NOT REPORTED [employer] Phone: [employer] Work Phone: CBC WITH AUTO DIFFERENTIALOr dered By: Ruiz Joel on 02-01-2021 Absolute Eos # 0.[address] [facility] Work Phone: Absolute Immature Granulocyte 0.06 [employer] Work Phone: Absolute Lymph # 1.62 [employer] Lawy He alth Work Phone: Absolute Dewey # 1.46 High RSVP Lawy Hea [facility] Work Phone: Basophils (Bld) [#/Vol] 0.04 10*3/uL [employer] Phone: Basophils/100 WBC (Bld) 0 % 0 - 2 % [employer] Phone: Differential Type NOT REPORTED [employer] Phone: Eosinophils/100 WBC (Bld) 3 % 1 - 4 % [employer] Work Phone: Hematocrit (Bld) [Volume fraction] 33.7 % Low 36.3 - 47.1 % [employer] Phone: Hemoglobin.gastrointe stinal spec 1 Ql (Stl) 10.3 g/dL Low 11.9 - 15.1 g/dL [employer] Phone: Immature granulocytes/100 WBC (Bld) 1 % High 0 [employer] Phone: Interpretation and review of laboratory results Abnormal [employer] Phone: Lymphocytes/100 WBC (Bld) 14 % Low 24 - 43 % [employer] Phone: MCH (RBC) [Entitic mass] 29.9 pg 25.2 - 33.5 pg [employer] Phone: MCHC (RBC) [Mass/Vol] 30.6 g/dL 28.4 - 34.8 g/dL [employer] Phone: MCV (RBC) [Entitic vol] 98.0 fL 82.6 - 102.9 fL [employer] Phone: Monocytes/100 WBC (Bld) 13 % High 3 - 12 % [employer] Phone: NRBC Automated 0.0 0.0 per 100 WBC [employer] Phone: Platelet distribution width (Bld) [Ratio] 13.4 % 11.8 - 14.4 % [employer] Phone: Platelet Estimate NOT REPORTED [employer] Phone: Platelet mean volume (Bld) [Entitic vol] 11.6 fL 8.1 - 13.5 fL [employer] Phone: Platelets (Bld) [#/Vol] 392 10*3/uL [employer] Phone: RBC (Bld) [#/Vol] 3.44 10*6/uL Low 3.95 - 5.1 1 m/uL [employer] Phone: RBC (Bld) [#/Vol] NOT REPORTED [employer] Phone: Segmented neutrophils/100 WBC (Bld) 69 % High 36 - 65 % [employer] Work Phone: [employer]s [employer] Work Phone: WBC (Bld) [#/Vol] 11.3 10*3/uL [employer] Phone: WBC (Bld) [#/Vol] NOT REPORTED [employer] Phone: [employer] Phone: Basic Metabolic Panel w/ Ref brannon to MGOrdered By: Nicolasa Le on 01-31-2021 Anion gap [Moles/Vol] 17 mmol/L 9 - 17 mmol/L [employer] Phone: Calcium [Mass/Vol] 8.7 mg/dL 8.6 - 10. 4 mg/dL [employer] Phone: Chloride [Moles/Vol] 105 mmol/L 98 - 10 7 mmol/L [employer] Phone: CO2 [Moles/Vol] 15 mmol/L Low 20 - 31 mmol/L [employer] Phone: Creatinine [Mass/Vol] 0.36 mg/dL Low 0.50 - 0.90 mg/dL [employer] Phone: GFR >60 >60 mL/min [employer] Phone: GFR Non- >60 >60 mL/min [employer] Phone: GFR/1.73 sq M.predicted MDRD (S/P/Bld) [Vol rate/Area] [employer] Phone: Comment on above: Average GFR for 30-3 9 years old: 107 mL/min/1.73sq m Chronic Kidney Disease: <60 mL/min/1.73sq m Kidney failure: <15 mL/min/1.73sq m eGFR calculated using average adult body mass. Additional eGFR calculator available at: http://www.HubHub.BitMethod/multiple_crcl_2012.htm GFR/1.73 sq M.predicted MDRD (S/P/Bld) [Vol rate/Area] NOT REPORTED [facility] Phone: Glucose [Mass/Vol] 78 mg/dL 70 - 99 mg/dL [employer] Work Phone: Interpretation and review of laboratory results Abnormal [employer] Work Phone: Potassium [Moles/Vol] 3.8 mmol/L 3.7 - 5.3 mmol/L [employer] Work Phone: Sodium [Moles/Vol] 137 mmol/L 135 - 144 mmol/L [employer] Work Phone: Urea nitrogen (BldV) [Mass/Vol] 3 mg/dL Low 6 - 20 mg/dL [employer] Work Phone: Urea nitrogen/Creatinine (Bld) [Mass ratio] NOT REPORTED [employer] Work Phone: [employer] Work Phone: CBC auto differentialOrdered By: Nicolasa Le on 01-31-2021 Absolute Eos # 0.[address] [facility] Work Phone: Absolute Immature Granulocyte 0.15 [employer] Work Phone: Absolute Lymph # 2.[address] [facility] Work Phone: Absolute Dewey # 2.25 High [employer]P Lawy Hea [facility] Work Phone: Basophils (Bld) [#/Vol] 0.00 10*3/uL [employer] Work Phone: Basophils/100 WBC (Bld) 0 % 0 - 2 % [employer] Work Phone: Differential Type NOT REPORTED [employer] Work Phone: Eosinophils/100 WBC (Bld) 2 % 1 - 4 % [employer] Work Phone: Hematocrit (Bld) [Volume fraction] 35.7 % Low 36.3 - 47.1 % [employer] Work Phone: Hemoglobin.gastrointe stinal spec 1 Ql (Stl) 10.8 g/dL Low 11.9 - 15.1 g/dL [facility] Phone: Immature granulocytes/100 WBC (Bld) 1 % High 0 [employer] Phone: Interpretation and review of laboratory results Abnormal [employer] Phone: Lymphocytes/100 WBC (Bld) 14 % Low 24 - 43 % [employer] Phone: MCH (RBC) [Entitic mass] 29.9 pg 25.2 - 33.5 pg [employer] Phone: MCHC (RBC) [Mass/Vol] 30.3 g/dL 28.4 - 34.8 g/dL [employer] Phone: MCV (RBC) [Entitic vol] 98.9 fL 82.6 - 102.9 fL [facility] Phone: Monocytes/100 WBC (Bld) 15 % High 3 - 12 % [employer] Phone: Morphology Celso (Bld) [Interp] Normal [facility] Phone: NRBC Automated 0.0 0.0 per 100 WBC [employer] Phone: Platelet distribution width (Bld) [Ratio] 13.5 % 11.8 - 14.4 % [employer] Phone: Platelet Estimate NOT REPORTED [employer] Phone: Platelet mean volume (Bld) [Entitic vol] 11.6 fL 8.1 - 13.5 fL [employer] Phone: Platelets (Bld) [#/Vol] 375 10*3/uL [employer] Phone: RBC (Bld) [#/Vol] 3.61 10*6/uL Low 3.95 - 5.1 1 m/uL [employer] Phone: RBC (Bld) [#/Vol] NOT REPORTED [employer] Work Phone: Segmented neutrophils/100 WBC (Bld) 68 % High 36 - 65 % [employer] Work Phone: Segs Absolute 10.20 High [facility] Work Phone: WBC (Bld) [#/Vol] 15.0 10*3/uL High [employer] Work Phone: WBC (Bld) [#/Vol] NOT REPORTED [employer] Work Phone: [employer] Work Phone: CBC Auto DifferentialOrdered By: David Nash on 01-30-2021 Absolute Eos # 0.21 [employer] Work Phone: Absolute Immature Granulocyte 0.04 [employer] Work Phone: Absolute Lymph # 1.88 [employer] Work Phone: Absolute Dewey # 1.43 High [employer] [facility] Work Phone: Basophils (Bld) [#/Vol] 0.04 10*3/uL [employer] Work Phone: Basophils/100 WBC (Bld) 0 % 0 - 2 % [employer] Work Phone: Differential Type NOT REPORTED [employer] Work Phone: Eosinophils/100 WBC (Bld) 2 % 1 - 4 % [employer] Work Phone: Hematocrit (Bld) [Volume fraction] 36.2 % Low 36.3 - 47.1 % [employer] Work Phone: Hemoglobin.gastrointe stinal spec 1 Ql (Stl) 11.7 g/dL Low 11.9 - 15.1 g/dL [employer] Work Phone: Immature granulocytes/100 WBC (Bld) 0 % 0 [employer] Work Phone: Interpretation and review of laboratory results Abnormal [facility] Phone: Lymphocytes/100 WBC (Bld) 15 % Low 24 - 43 % [facility] Phone: MCH (RBC) [Entitic mass] 30.3 pg 25.2 - 33.5 pg [employer] Phone: MCHC (RBC) [Mass/Vol] 32.3 g/dL 28.4 - 34.8 g/dL [facility] Phone: MCV (RBC) [Entitic vol] 93.8 fL 82.6 - 102.9 fL [employer] Phone: Monocytes/100 WBC (Bld) 12 % 3 - 12 % [facility] Phone: NRBC Automated 0.0 0.0 per 100 WBC [employer] Phone: Platelet distribution width (Bld) [Ratio] 13.2 % 11.8 - 14.4 % [facility] Phone: Platelet Estimate NOT REPORTED [employer] Phone: Platelet mean volume (Bld) [Entitic vol] 11.6 fL 8.1 - 13.5 fL [employer] Phone: Platelets (Bld) [#/Vol] 414 10*3/uL [employer] Phone: RBC (Bld) [#/Vol] 3.86 10*6/uL Low 3.95 - 5.1 1 m/uL [employer] Phone: RBC (Bld) [#/Vol] NOT REPORTED [employer] Phone: Segmented neutrophils/100 WBC (Bld) 71 % High 36 - 65 % [facility] Phone: Segs Absolute 8.75 High [employer] Work Phone: WBC (Bld) [#/Vol] 12.4 10*3/uL High [facility] Phone: WBC (Bld) [#/Vol] NOT REPORTED [facility] Phone: [facility] Phone: CT ABDOMEN PELVIS W IV CONTR [...] anterolisthesis and marked decrease in disc height. [facility] Phone: EXAMINATION: CT OF T HE ABDOMEN [...] height was noted at the L5-S1 disc. [employer] Work Phone: Dario, Mhpn Incoming Radiant Results From [facility] - 01/30/2021 12:20 PM EDT EXAMINATION: CT [...] anterolisthesis and marked decrease in disc height. [facility] Phone: [facility] Phone: Comprehensive Metabolic Pane l w/ Reflex to MGOrdered By: David Nash on 01-30-2021 Albumin [Mass/Vol] 3.6 g/dL 3.5 - 5.2 g/dL [facility] Phone: Albumin/Globulin [Mass ratio] 1.0 {ratio} [facility] Phone: ALP (Bld) [Catalytic activity/Vol] 107 U/L High 35 - 104 U/L [employer] Phone: ALT [Catalytic activity/Vol] 33 U/L 5 - 33 U/L [employer] Phone: Anion gap [Moles/Vol] 17 mmol/L 9 - 17 mmol/L [employer] Phone: AST [Catalytic activity/Vol] 26 U/L <32 [facility] Phone: Bilirubin [Mass/Vol] 0.25 mg/dL Low 0.3 - 1 .2 mg/dL [employer] Phone: Calcium [Mass/Vol] 9.5 mg/dL 8.6 - 10. 4 mg/dL [employer] Phone: Chloride [Moles/Vol] 104 mmol/L 98 - 10 7 mmol/L [employer] Phone: CO2 [Moles/Vol] 19 mmol/L Low 20 - 31 mmol/L [employer] Phone: Creatinine [Mass/Vol] 0.47 mg/dL Low 0.50 - 0.90 mg/dL [employer] Phone: Free PSA/Total PSA [Mass fraction] 7.3 g/dL 6.4 - 8.3 g/dL [facility] Phone: GFR >60 >60 mL/min [facility] Phone: GFR Non- >60 >60 mL/min [facility] Phone: Glucose [Mass/Vol] 79 mg/dL 70 - 99 mg/dL [facility] Phone: Interpretation and review of laboratory results Abnormal [employer] Phone: Potassium [Moles/Vol] 3.8 mmol/L 3.7 - 5.3 mmol/L [facility] Phone: Sodium [Moles/Vol] 140 mmol/L 135 - 144 mmol/L [employer] Phone: Urea nitrogen (BldV) [Mass/Vol] 5 mg/dL Low 6 - 20 mg/dL [facility] Phone: Urea nitrogen/Creatinine (Bld) [Mass ratio] 11 [facility] Phone: HCG Qualitative, SerumOrdere d By: Noreen Mckeon on 01-30-2021 hCG Qual Negative NEGATIVE [facility] Phone: Comment on above: Specimens with hCG l evels near the threshold of the test (25 mIU/mL) may give a negative or indeterminate result. In such cases, another test should be performed with a new specimen in 48-72 hours. If early is suspected clinically in this setting, correlation with quantitative serum b-hCG level is suggested. [employer] has confirmed the use of plasma for this test. This has not been cleared or approved by the U.S. Food and Drug Administration. The FDA has determined that such clearance is not necessary. [facility] Phone: Laboratory - Chemistry and C hemistry - challengeOrdered By: David Nash on 01-30-2021 GFR/1.73 sq M.predicted MDRD (S/P/Bld) [Vol rate/Area] [employer] Phone: Comment on above: Average GFR for 30-3 9 years old: 107 mL/min/1.73sq m Chronic Kidney Disease: <60 mL/min/1.73sq m Kidney failure: <15 mL/min/1.73sq m eGFR calculated using average adult body mass. Additional eGFR calculator available at: http://www.[employer]/multiple_crcl_2012.htm Stage 1: Some kidney damage normal GFR Stage 2: Mild kidney damage GFR 60-89 Stage 3: Moderate kidney damage GFR 30-59 Stage 4: Severe kidney damage GFR 15-29 Stage 5: Severe kidney damage GFR <15 ESRD - chronic treatment by dialysis or transplant Lactic AcidOrdered By: Beatriz Nash on 01-30-2021 Lactate [Moles/Vol] 0.6 mmol/L 0.5 - 2. 2 mmol/L [facility] Phone: [employer] Work Phone: LipaseOrdered By: David dalton on 01-30-2021 Lipase [Catalytic activity/Vol] 30 U/L 13 - 60 U/L [facility] Phone: Microscopic UrinalysisOrdere d By: David Nash on 01-30-2021 - [employer] Phone: Amorphous, UA NOT REPORTED None [facility] Work Phone: Bacteria, UA TRACE Abnormal None [employer] Work Phone: Casts UA NOT REPORTED /LPF [employer] Work Phone: Crystals, UA NOT REPORTED None /HPF [employer] [facility] Work Phone: Epithelial Cells UA 2 TO 5 [employer] Work Phone: Interpretation and review of laboratory results Abnormal [employer] Work Phone: Mucus, UA NOT REPORTED None [employer] Work Phone: Other Observations UA NOT REPORTED NOT REQ. [facility] Work Phone: RBC, UA 0 TO 2 [facility] Work Phone: Renal Epithelial, UA NOT REPORTED 0 /HPF Me [facility] Work Phone: Trichomonas, UA NOT REPORTED None [facility] Work Phone: WBC, UA 2 TO 5 [facility] [employer] Work Phone: Yeast, UA NOT REPORTED None [facility] [employer] Work Phone: [facility] [employer] Work Phone: No Panel InformationOrdered By: David Nash on 01-30-2021 [facility] [employer] Work Phone: Protime-INROrdered By: Linda Mckeon on 01-30-2021 INR Coag (Bld) [Relative time] 1.1 {INR} [facility] [employer] Work Phone: Comment on above: Therapeutic Range: Moderate Anticoagulant Intensity: INR = 2.0-3.0 High Anticoagulant Intensity: INR = 2.5-3.5 PT Coag (PPP) [Time] 11.4 s [facility] Work Phone: [facility] [employer] Work Phone: Urinalysis, reflex to micros copicOrdered By: David Nash on 01-30-2021 Bilirubin Urine SMALL Abnormal NEGATIVE [facility] Work Phone: Color, UA YELLOW YELLOW [facility] Work Phone: Glucose, Ur Negative NEGATIVE [facility] Work Phone: Interpretation and review of laboratory results Abnormal [facility] [employer] Work Phone: Ketones Ql (U) 4+ Abnormal NEGATIVE [facility] Work Phone: Leukocyte esterase Test strip Ql (U) Negative NEGATIVE [facility] Work Phone: Nitrite, Urine Negative NEGATIVE [facility] Work Phone: pH, UA 5.5 [facility] Work Phone: Protein, UA Negative NEGATIVE [facility] Work Phone: Specific [place], UA <1.005 Low [facility] [employer] Work Phone: Turbidity UA CLEAR CLEAR [facility] Work Phone: Urinalysis Comments NOT REPORTED [facility] Work Phone: Urine Hgb Negative NEGATIVE [facility] Work Phone: Urobilinogen, Urine Normal Normal [facility] [employer] Work Phone: [facility] [employer] Work Phone: Basic Metabolic PanelOrdered By: Gamaliel Vickers on 01-08-2021 Anion gap [Moles/Vol] 11 mmol/L 9 - 17 mmol/L [facility] [employer] Phone: Calcium [Mass/Vol] 9.1 mg/dL 8.6 - 10. 4 mg/dL [facility] [employer] Phone: Chloride [Moles/Vol] 105 mmol/L 98 - 10 7 mmol/L [facility] [employer] Phone: CO2 [Moles/Vol] 23 mmol/L 20 - 31 mmol/L [facility] [employer] Phone: Creatinine [Mass/Vol] 0.57 mg/dL 0.50 - 0.90 mg/dL [facility] [employer] Phone: GFR >60 >60 mL/min [facility] [employer] Work Phone: GFR Non- >60 >60 mL/min [facility] [employer] Work Phone: GFR/1.73 sq M.predicted MDRD (S/P/Bld) [Vol rate/Area] [facility] [employer] Phone: Comment on above: Average GFR for 30-3 9 years old: 107 mL/min/1.73sq m Chronic Kidney Disease: <60 mL/min/1.73sq m Kidney failure: <15 mL/min/1.73sq m eGFR calculated using average adult body mass. Additional eGFR calculator available at: http://www.[employer]/multiple_crcl_2012.htm GFR/1.73 sq M.predicted MDRD (S/P/Bld) [Vol rate/Area] NOT REPORTED [facility] Phone: Glucose [Mass/Vol] 106 mg/dL High 70 - 99 mg/dL [employer] Phone: Interpretation and review of laboratory results Abnormal [employer] Phone: Potassium [Moles/Vol] 3.7 mmol/L 3.7 - 5.3 mmol/L [employer] Phone: Sodium [Moles/Vol] 139 mmol/L 135 - 144 mmol/L [employer] Phone: Urea nitrogen (BldV) [Mass/Vol] 7 mg/dL 6 - 20 mg/dL [employer] Phone: Urea nitrogen/Creatinine (Bld) [Mass ratio] NOT REPORTED [employer] Phone: CBCOrdered By: Gamaliel castillo on 01-08-2021 Hematocrit (Bld) [Volume fraction] 38.0 % 36.3 - 47.1 % [employer] Phone: Hemoglobin.gastrointe stinal spec 1 Ql (Stl) 12.2 g/dL 11.9 - 15.1 g/dL [employer] Phone: Interpretation and review of laboratory results Abnormal [employer] Phone: MCH (RBC) [Entitic mass] 30.4 pg 25.2 - 33.5 pg [facility] Phone: MCHC (RBC) [Mass/Vol] 32.1 g/dL 28.4 - 34.8 g/dL [employer] Phone: MCV (RBC) [Entitic vol] 94.8 fL 82.6 - 102.9 fL [employer] Phone: NRBC Automated 0.0 0.0 per 100 WBC [employer] Phone: Platelet distribution width (Bld) [Ratio] 13.5 % 11.8 - 14.4 % [employer] Phone: Platelet mean volume (Bld) [Entitic vol] 11.4 fL 8.1 - 13.5 fL [employer] Phone: Platelets (Bld) [#/Vol] 304 10*3/uL [employer] Phone: RBC (Bld) [#/Vol] 4.01 10*6/uL 3.95 - 5.1 1 m/uL [employer] Phone: WBC (Bld) [#/Vol] 18.0 10*3/uL High [employer] Phone: FL ESOPHAGRAMOrdered By: Yadi Vickers on 01-08-2021 No evidence of postoperative leak. [facility] Phone: EXAMINATION: SINGLE CONTRAST ESOPHAGRAM 01/08/2021 HISTORY: [...] KUB/radiographs to assess progression as clinically warranted. [facility] Phone: Dario, Mhpn Incoming Radiant Results From [facility] - 01/08/2021 12:29 PM EDT EXAMINATION: SINGLE [...] esophagus through the bypass and into the Itan limb without evidence of leak. Delayed imaging demonstrates no significant progression of contrast. Consider follow-up abdominal KUB/radiographs to assess progression as clinically warranted. IMPRESSION: No evidence of postoperative leak. [facility] Phone: Basic Metabolic PanelOrdered By: Gamaliel Vickers on 01-07-2021 Anion gap [Moles/Vol] 10 mmol/L 9 - 17 mmol/L [facility] Phone: Calcium [Mass/Vol] 8.8 mg/dL 8.6 - 10. 4 mg/dL [employer] Phone: Chloride [Moles/Vol] 105 mmol/L 98 - 10 7 mmol/L [facility] Phone: CO2 [Moles/Vol] 20 mmol/L 20 - 31 mmol/L [employer] Phone: Creatinine [Mass/Vol] 0.68 mg/dL 0.50 - 0.90 mg/dL [facility] Phone: GFR >60 >60 mL/min [facility] Phone: GFR Non- >60 >60 mL/min [facility] Phone: GFR/1.73 sq M.predicted MDRD (S/P/Bld) [Vol rate/Area] [employer] Phone: Comment on above: Average GFR for 30-3 9 years old: 107 mL/min/1.73sq m Chronic Kidney Disease: <60 mL/min/1.73sq m Kidney failure: <15 mL/min/1.73sq m eGFR calculated using average adult body mass. Additional eGFR calculator available at: http://www.[employer]/multiple_crcl_2011.htm GFR/1.73 sq M.predicted MDRD (S/P/Bld) [Vol rate/Area] NOT REPORTED [facility] Phone: Glucose [Mass/Vol] 215 mg/dL High 70 - 99 mg/dL [employer] Phone: Interpretation and review of laboratory results Abnormal [facility] Phone: Potassium [Moles/Vol] 4.2 mmol/L 3.7 - 5.3 mmol/L [employer] Phone: Sodium [Moles/Vol] 135 mmol/L 135 - 144 mmol/L [employer] Phone: Urea nitrogen (BldV) [Mass/Vol] 14 mg/dL 6 - 20 mg/dL [employer] Phone: Urea nitrogen/Creatinine (Bld) [Mass ratio] NOT REPORTED [employer] Phone: CBC without DiffOrdered By: Gamaliel Vickers on 01-07-2021 Hematocrit (Bld) [Volume fraction] 38.3 % 36.3 - 47.1 % [employer] Phone: Hemoglobin.gastrointe stinal spec 1 Ql (Stl) 12.5 g/dL 11.9 - 15.1 g/dL [facility] Phone: Interpretation and review of laboratory results Abnormal [facility] Phone: MCH (RBC) [Entitic mass] 30.9 pg 25.2 - 33.5 pg [employer] Phone: MCHC (RBC) [Mass/Vol] 32.6 g/dL 28.4 - 34.8 g/dL [employer] Phone: MCV (RBC) [Entitic vol] 94.8 fL 82.6 - 102.9 fL [employer] Phone: NRBC Automated 0.0 0.0 per 100 WBC [employer] Phone: Platelet distribution width (Bld) [Ratio] 13.4 % 11.8 - 14.4 % [employer] Phone: Platelet mean volume (Bld) [Entitic vol] 11.2 fL 8.1 - 13.5 fL [employer] Phone: Platelets (Bld) [#/Vol] 373 10*3/uL [employer] Phone: RBC (Bld) [#/Vol] 4.04 10*6/uL 3.95 - 5.1 1 m/uL [employer] Phone: WBC (Bld) [#/Vol] 24.9 10*3/uL High [employer] Phone: POCT urine pregnancyOrdered By: Gamaliel Vickers on 01-07-2021 Beta HCG ( test) Ql (U) Negative NEGATIVE [employer] Phone: Comment on above: Specimens with hCG l evels near the threshold of the test (25 mIU/mL) may give a negative or indeterminate result. In such cases, another test should be performed with a new specimen in 48-72 hours. If early is suspected clinically in this setting, correlation with quantitative serum b-hCG level is suggested. [id number] 01-04-2021 SARS-CoV-2 (COVID-19) RNA JOSÉ MIGUEL+probe Ql (Unsp spec) Normal [facility] Comment on above: Performed By: #### C OVID #### [facility] [address] [place] [address] Rd Manager: Wei Reyna MD [facility] [place] [address] Rd Manager: Harpal Adair MD SARS-CoV-2 (COVID-19) RNA JOSÉ MIGUEL+probe Ql (Unsp spec) Not detected Normal NOTDET [facility] Comment on above: Result Comment: The specimen is NEGATIVE for SARS-CoV-2, the novel coronavirus associated with COVID-19. A negative result does not rule out COVID-19. [employer] SARS-CoV-2 for use on the [employer] is a real-time RT-PCR test intended [...] this assay. Fact sheet for Healthcare Providers: https://www.fda.gov/media/401600/download Fact sheet for Patients: https://www.fda.gov/media/137120/download METHODOLOGY: RT-PCR Performed By: #### C OVID #### [facility] [address] [place] [address] Rd Manager: Wei Reyna MD [address] [id number] Manager: Harpal Adair MD [id number] 01-03-2021 SARS-CoV-2 (COVID-19) RNA JOSÉ MIGUEL+probe Ql (Unsp spec) .NASOPHARYNGEAL SWAB Normal [facility] Comment on above: Performed By: #### C OVID #### [facility] [place] [address] Rd Manager: Wei Reyna MD [id number] Manager: Harpal Adair MD Nicotine, BloodOrdered By: Jose Vickers on 12-26-2020 [id number] <2 ng/mL [facility] Work Phone: Cotinine <2 ng/mL [facility] Work Phone: Nicotine <2 ng/mL [employer] Phone: Comment on above: (NOTE) Consistent with [...] developed and its performance characteristics determined by [employer]. It has not been cleared or approved by the US Food and Drug Administration. This test was performed in a CLIA certified laboratory and is intended for clinical purposes. Performed By: [facility] [address] [place] [id number] [employer] Equipment Mechanic: Brissa Bonilla MD EKG 12 LeadOrdered By: Enmanuel Vickers on 12-25-2020 Atrial Rate 70 BPM [employer] Phone: P [place] 20 degrees [employer] Phone: P-R Interval 176 ms [employer] Phone: Q-T Interval 414 ms [employer] Phone: QRS Duration 88 ms [employer] Phone: QTc Calculation (Bazett) 447 ms [employer] Phone: R [place] 7 degrees [employer] Phone: T [place] 8 degrees [employer] Phone: Ventricular Rate 70 BPM [place] Phone: Normal sinus rhythm Normal ECG No previous ECGs available [facility] Phone: Dario, Mhpn Incoming E kg Results From [facility] [place] - 12/25/2020 12:47 PM EDT Normal sinus rhythm Normal ECG No previous ECGs available [facility] Phone: APTTOrdered By: Gamaliel horvath on 12-24-2020 aPTT Coag (Bld) [Time] 23.1 s [employer] Phone: Comment on above: IV Heparin Therapy Range: 48.6-77.8 Basic Metabolic PanelOrdered By: Gamaliel Vickers on 12-24-2020 Anion gap [Moles/Vol] 10 mmol/L 9 - 17 mmol/L [facility] Phone: Calcium [Mass/Vol] 9.4 mg/dL 8.6 - 10. 4 mg/dL [employer] Phone: Chloride [Moles/Vol] 106 mmol/L 98 - 10 7 mmol/L [employer] Phone: CO2 [Moles/Vol] 23 mmol/L 20 - 31 mmol/L [employer] Phone: Creatinine [Mass/Vol] 0.56 mg/dL 0.50 - 0.90 mg/dL [employer] Phone: GFR >60 >60 mL/min [place] Phone: GFR Non- >60 >60 mL/min [facility] Phone: GFR/1.73 sq M.predicted MDRD (S/P/Bld) [Vol rate/Area] [facility] Phone: Comment on above: Average GFR for 30-3 9 years old: 107 mL/min/1.73sq m Chronic Kidney Disease: <60 mL/min/1.73sq m Kidney failure: <15 mL/min/1.73sq m eGFR calculated using average adult body mass. Additional eGFR calculator available at: http://www.[employer]/multiple_crcl_2012.htm GFR/1.73 sq M.predicted MDRD (S/P/Bld) [Vol rate/Area] NOT REPORTED [facility] Phone: Glucose [Mass/Vol] 86 mg/dL 70 - 99 mg/dL [facility] Phone: Potassium [Moles/Vol] 3.8 mmol/L 3.7 - 5.3 mmol/L [facility] Phone: Sodium [Moles/Vol] 139 mmol/L 135 - 144 mmol/L [facility] Phone: Urea nitrogen (BldV) [Mass/Vol] 12 mg/dL 6 - 20 mg/dL [facility] Phone: Urea nitrogen/Creatinine (Bld) [Mass ratio] NOT REPORTED [facility] Phone: CBCOrdered By: Gamaliel castillo on 12-24-2020 Hematocrit (Bld) [Volume fraction] 41.2 % 36.3 - 47.1 % [facility] Phone: Hemoglobin.gastrointe stinal spec 1 Ql (Stl) 13.4 g/dL 11.9 - 15.1 g/dL [facility] Phone: MCH (RBC) [Entitic mass] 30.5 pg 25.2 - 33.5 pg [facility] Phone: MCHC (RBC) [Mass/Vol] 32.5 g/dL 28.4 - 34.8 g/dL [facility] Phone: MCV (RBC) [Entitic vol] 93.6 fL 82.6 - 102.9 fL [facility] Phone: NRBC Automated 0.0 0.0 per 100 WBC [employer] Phone: Platelet distribution width (Bld) [Ratio] 13.2 % 11.8 - 14.4 % [employer] Phone: Platelet mean volume (Bld) [Entitic vol] 10.7 fL 8.1 - 13.5 fL [employer] Phone: Platelets (Bld) [#/Vol] 391 10*3/uL [employer] Phone: RBC (Bld) [#/Vol] 4.40 10*6/uL 3.95 - 5.1 1 m/uL [employer] Phone: WBC (Bld) [#/Vol] 8.5 10*3/uL [employer] Phone: Protime-INROrdered By: Enmanuel Vickers on 12-24-2020 INR Coag (Bld) [Relative time] 0.9 {INR} [facility] Phone: Comment on above: Therapeutic Range: Moderate Anticoagulant Intensity: INR = 2.0-3.0 High Anticoagulant Intensity: INR = 2.5-3.5 PT Coag (PPP) [Time] 10 s [place] Phone: XR CHEST (2 VW)on 12-24-2020 No acute cardiopulmo nary findings [employer] Phone: EXAMINATION: TWO XRA Y VIEWS OF THE CHEST 12/24/2020 11:24 am COMPARISON: None. HISTORY: ORDERING SYSTEM PROVIDED HISTORY: preop gastric bypass [employer] TECHNOLOGIST PROVIDED HISTORY: preop gastric bypass Tian [employer] Y Reason for Exam: no chest complaints FINDINGS: Normal cardiopericardial silhouette There are no significant mediastinal, pleural, parenchymal or osseous findings [employer] Phone: Dario, Mhpn Incoming Radiant Results From [facility] - 12/24/2020 11:30 AM EDT EXAMINATION: TWO XRAY VIEWS OF THE CHEST 12/24/2020 11:24 am COMPARISON: None. HISTORY: ORDERING SYSTEM PROVIDED HISTORY: preop gastric bypass [employer] TECHNOLOGIST PROVIDED HISTORY: preop gastric bypass [employer] Reason for Exam: no chest complaints FINDINGS: Normal cardiopericardial silhouette There are no significant mediastinal, pleural, parenchymal or osseous findings IMPRESSION: No acute cardiopulmonary findings [facility] Phone: XR CHEST (2 VW)Ordered By: Jose Vickers on 12-24-2020 No acute cardiopulmo nary findings [employer] Phone: EXAMINATION: TWO XRA Y VIEWS OF THE CHEST 12/24/2020 11:24 am COMPARISON: None. HISTORY: ORDERING SYSTEM PROVIDED HISTORY: preop gastric bypass [employer] TECHNOLOGIST PROVIDED HISTORY: preop gastric bypass [employer] Y Reason for Exam: no chest complaints FINDINGS: Normal cardiopericardial silhouette There are no significant mediastinal, pleural, parenchymal or osseous findings [employer] Phone: Dario, Mhpn Incoming Radiant Results From [facility] - 12/24/2020 11:30 AM EDT EXAMINATION: TWO XRAY VIEWS OF THE CHEST 12/24/2020 11:24 am COMPARISON: None. HISTORY: ORDERING SYSTEM PROVIDED HISTORY: preop gastric bypass [employer] TECHNOLOGIST PROVIDED HISTORY: preop gastric bypass [employer] Y Reason for Exam: no chest complaints FINDINGS: Normal cardiopericardial silhouette There are no significant mediastinal, pleural, parenchymal or osseous findings IMPRESSION: No acute cardiopulmonary findings [employer] Phone: FL UGI W AIR CONTRASTon 10-15 Intermittent signifi cant spontaneous GE reflux. Otherwise unremarkable double-contrast upper GI and esophagram. [employer] Phone: EXAMINATION: DOUBLE CONTRAST UPPER GI SERIES [...] The duodenal bulb and sweep are normal. [facility] Phone: Dario, Mhpn Incoming Radiant Results From [facility] - 11/01/2020 5:21 PM EST EXAMINATION: DOUBLE [...] Otherwise unremarkable double-contrast upper GI and esophagram. [employer] Phone: COVID-19on 09-25-2020 SARS-CoV-2 [place], [place] SARS-CoV-2 Not Detected Not Detected [facility] [place] Comment on above: The specimen is NEGATIVE for SARS-CoV-2, the novel coronavirus associated with COVID-19. A negative result does not rule out COVID-19. [place]ide SARS-CoV-2 for use on the [employer] is a real-time RT-PCR test [...] this assay. Fact sheet for Healthcare Providers: https://www.fda.gov/media/879225/download Fact sheet for Patients: https://www.fda.gov/media/172778/download METHODOLOGY: RT-PCR SARS-CoV-2, Rapid [place], [place] Source .NASOPHARYNGEAL SWAB [place], [place] Vital Signs Date Time Vital Sign Value Performing Clinician Facility 08-08-2024 15:29-0500 Diastolic blood pressure 70 mm[Hg] Aleah Howard MD Work Phone: [facility] 08-08-2024 15:29-0500 Systolic blood pressure 110 mm[Hg] Aleah Howard MD Work Phone: [facility] 08-08-2024 15:28-0500 Body height 170.2 cm Aleah Howard MD Work Phone: [facility] 08-08-2024 15:28-0500 Body mass index (BMI) [Ratio] 29.44 kg/m2 Aleah Howard MD Work Phone: [facility] 08-08-2024 15:28-0500 Body weight 85.28 kg Aleah Howard MD Work Phone: [facility] 08-08-2024 15:28-0500 Heart rate 75 /min Aleah Howard MD Work Phone: [facility] 07-25-2024 15:08-0500 Body mass index (BMI) [Ratio] 28.94 kg/m2 Tevin Carson DO Work Phone: [facility] 07-25-2024 15:08-0500 Body weight 83.8 kg Tevin Carson DO Work Phone: [facility] 07-25-2024 15:08-0500 Diastolic blood pressure 72 mm[Hg] Tevin Carson DO Work Phone: [facility] 07-25-2024 15:08-0500 Heart rate 67 /min Tevin Carson DO Work Phone: [facility] 07-25-2024 15:08-0500 SaO2% (BldA) [Mass fraction] 100 % Tevin Carson DO Work Phone: [facility] 07-25-2024 15:08-0500 Systolic blood pressure 122 mm[Hg] Tevin Carson DO Work Phone: [facility] 07-04-2024 11:01-0400 Body height 170.2 cm Fatuma Tyler SKI LIFT OPERATOR.ELEVATOR INSPECTOR Work Phone: [facility] 07-04-2024 11:01-0400 Body mass index (BMI) [Ratio] 28.98 kg/m2 Bellaa Tyler SKI LIFT OPERATOR.ELEVATOR INSPECTOR Work Phone: [facility] 07-04-2024 11:01-0400 Body weight 83.92 kg Fatuma Tyler SKI LIFT OPERATOR.ELEVATOR INSPECTOR Work Phone: [facility] 07-01-2024 11:01-0400 Body height 170.2 cm Tevin Carson DO Work Phone: [facility] 07-01-2024 11:01-0400 Body mass index (BMI) [Ratio] 29.8 kg/m2 Tevin Carson DO Work Phone: [facility] 07-01-2024 11:01-0400 Body weight 86.3 kg Tevin Carson DO Work Phone: [facility] 07-01-2024 11:01-0400 Diastolic blood pressure 59 mm[Hg] Tevin Carson DO Work Phone: [facility] 07-01-2024 11:01-0400 Heart rate 72 /min Tevin Carson DO Work Phone: [facility] 07-01-2024 11:01-0400 SaO2% (BldA) [Mass fraction] 99 % Tevin Carson DO Work Phone: [facility] 07-01-2024 11:01-0400 Systolic blood pressure 101 mm[Hg] Tevin Ledy DO Work Phone: [facility] 03-08-2024 15:02-0400 Diastolic blood pressure 78 mm[Hg] Alexis Lopeze [facility] 03-08-2024 15:02-0400 Heart rate 65 /min Alexis Lopeze [facility] 03-08-2024 15:02-0400 Mean blood pressure 89 mm[Hg] Alexis Lopeze [facility] 03-08-2024 15:02-0400 SaO2% (BldA) [Mass fraction] 100 % Alexis Lopeze [facility] 03-08-2024 15:02-0400 Systolic blood pressure 110 mm[Hg] Alexis Lopeze [facility] 03-08-2024 14:00-0400 SaO2% (BldA) [Mass fraction] 99 % Alexis Lopeze [facility] 03-08-2024 13:37-0400 Body temperature 98.42 [degF] Alexis Lopeze [facility] 03-08-2024 13:37-0400 Diastolic blood pressure 82 mm[Hg] Alexis Lopeze [facility] 03-08-2024 13:37-0400 Heart rate 70 /min Alexis Lopeze [facility] 03-08-2024 13:37-0400 Respiratory rate 18 /min Alexis Lopeze [facility] 03-08-2024 13:37-0400 SaO2% (BldA) [Mass fraction] 100 % Alexis Lopeze [facility] 03-08-2024 13:37-0400 Systolic blood pressure 126 mm[Hg] Alexis Lopeze [facility] 03-08-2024 13:14-0400 Body temperature 98.24 [degF] Alexis Shukla [facility] 03-08-2024 13:14-0400 Diastolic blood pressure 87 mm[Hg] Alexis Shukla [facility] 03-08-2024 13:14-0400 Heart rate 67 /min Alexis Shukla [facility] 03-08-2024 13:14-0400 Respiratory rate 16 /min Alexis Shukla [facility] 03-08-2024 13:14-0400 Systolic blood pressure 135 mm[Hg] Alexis Shukla [facility] 03-08-2024 08:06-0400 Body height 170.2 cm Elia Baires DO Work Phone: [facility] 03-08-2024 08:06-0400 Body mass index (BMI) [Ratio] 30.9 kg/m2 Elia Baires DO Work Phone: [facility] 03-08-2024 08:06-0400 Body weight 89.5 kg Elia Baires DO Work Phone: [facility] 03-08-2024 08:06-0400 Diastolic blood pressure 72 mm[Hg] Elia Baires DO Work Phone: [facility] 03-08-2024 08:06-0400 Heart rate 82 /min Elia Baires DO Work Phone: [facility] 03-08-2024 08:06-0400 SaO2% (BldA) [Mass fraction] 100 % Elia Baires DO Work Phone: [facility] 03-08-2024 08:06-0400 Systolic blood pressure 114 mm[Hg] Elia Baires DO Work Phone: [facility] 01-04-2024 09:28-0400 Body height 170.2 cm Elia Baires DO Work Phone: [facility] 01-04-2024 [id number] Body mass index (BMI) [Ratio] 31.96 kg/m2 Elia Baires DO Work Phone: [facility] 01-04-2024 [id number] Body weight 92.55 kg Elia Baires DO Work Phone: [facility] 01-04-2024 [id number] Diastolic blood pressure 86 mm[Hg] Elia Dequan DO Work Phone: [facility] 01-04-2024 [id number] Heart rate 92 /min Eliafredrick Baires DO Work Phone: [facility] 01-04-2024 [id number] SaO2% (BldA) [Mass fraction] 97 % Eliafredrick Baires DO Work Phone: [facility] 01-04-2024 [id number] Systolic blood pressure 123 mm[Hg] Eliafredrick Baires DO Work Phone: [facility] 12-31-2023 11:17-0400 Heart rate 76 /min DO Jennie Durand Work Phone: [facility] 12-31-2023 11:14-0400 Body temperature 98.2 [degF] DO Jennie Durand Work Phone: [facility] 12-31-2023 11:14-0400 Diastolic blood pressure 73 mm[Hg] DO Jennie Durand Work Phone: [facility] 12-31-2023 11:14-0400 Respiratory rate 18 /min DO Jennie Durand Work Phone: [facility] 12-31-2023 11:14-0400 SaO2% (BldA) [Mass fraction] 97 % DO Jennie Durand Work Phone: [facility] 12-31-2023 11:14-0400 Systolic blood pressure 138 mm[Hg] DO Jennie Durand Work Phone: [facility] 12-31-2023 11:13-0400 Body height 170.18 cm DO Jennie Durand Work Phone: [facility] 12-31-2023 11:13-0400 Body weight 89.35 kg DO Jennie Durand Work Phone: [facility] 12-24-2023 11:58-0400 Body height 170.18 cm DO Jennie Durand Work Phone: [facility] 12-24-2023 11:58-0400 Body temperature 97.8 [degF] DO Jennie Durand Work Phone: [facility] 12-24-2023 11:58-0400 Body weight 89 kg DO Jennie Durand Work Phone: [facility] 12-24-2023 11:58-0400 Diastolic blood pressure 91 mm[Hg] DO Jennie Durand Work Phone: [facility] 12-24-2023 11:58-0400 Heart rate 85 /min DO Jennie Durand Work Phone: [facility] 12-24-2023 11:58-0400 Respiratory rate 15 /min DO Jennie Durand Work Phone: [facility] 12-24-2023 11:58-0400 SaO2% (BldA) [Mass fraction] 100 % DO Jennie Durand Work Phone: [facility] 12-24-2023 11:58-0400 Systolic blood pressure 137 mm[Hg] DO Jennie Durand Work Phone: [facility] 12-10-2023 12:35-0400 Heart rate 70 /min DO Jennie Durand Work Phone: [facility] 12-10-2023 12:35-0400 Respiratory rate 16 /min DO Jennie Durand Work Phone: [facility] 12-10-2023 12:35-0400 SaO2% (BldA) [Mass fraction] 98 % DO Jennie Durand Work Phone: [facility] 12-10-2023 12:08-0400 Body height 170.18 cm DO Jennie Durand Work Phone: [facility] 12-10-2023 12:08-0400 Body temperature 98 [degF] DO Jennie Durand Work Phone: [facility] 12-10-2023 12:08-0400 Body weight 89.8 kg DO Jennie Durand Work Phone: [facility] 12-10-2023 12:08-0400 Diastolic blood pressure 76 mm[Hg] DO Jennie Durand Work Phone: [facility] 12-10-2023 12:08-0400 Systolic blood pressure 123 mm[Hg] DO Jennie Durand Work Phone: [facility] 09-18-2023 08:49-0500 Diastolic blood pressure 72 mm[Hg] Gamaliel Vickers DO Work Phone: [facility] 09-18-2023 08:49-0500 Heart rate 58 /min Gamaliel Vickers DO Work Phone: [facility] 09-18-2023 08:49-0500 Respiratory rate 18 /min Gamaliel Vickers DO Work Phone: [facility] 09-18-2023 08:49-0500 SaO2% (BldA) [Mass fraction] 100 % Gamaliel Vickers DO Work Phone: [facility] 09-18-2023 08:49-0500 Systolic blood pressure 111 mm[Hg] Gamaliel Vickers DO Work Phone: [facility] 09-18-2023 08:24-0500 Body temperature 97.11 [degF] Gamaliel Vickers DO Work Phone: [facility] 09-18-2023 07:23-0500 Body height 170.2 cm Gamaliel Vickers DO Work Phone: [facility] 09-18-2023 07:23-0500 Body mass index (BMI) [Ratio] 31.79 kg/m2 Gamaliel Vickers DO Work Phone: [facility] 09-18-2023 07:23-0500 Body weight 92.08 kg Gamaliel Vickers DO Work Phone: [facility] 08-15-2023 13:37-0500 Diastolic blood pressure 69 mm[Hg] DO Jennie Durand Work Phone: [facility] 08-15-2023 13:37-0500 Heart rate 70 /min DO Jennie Durand Work Phone: [facility] 08-15-2023 13:37-0500 Respiratory rate 18 /min DO Jennie Durand Work Phone: [facility] 08-15-2023 13:37-0500 SaO2% (BldA) [Mass fraction] 99 % DO Jennie Durand Work Phone: [facility] 08-15-2023 13:37-0500 Systolic blood pressure 107 mm[Hg] DO Jennie Durand Work Phone: [facility] 08-15-2023 11:29-0500 Body height 170.18 cm DO Jennie Durand Work Phone: [facility] 08-15-2023 11:29-0500 Body temperature 98.2 [degF] DO Jennie Durand Work Phone: [facility] 08-15-2023 11:29-0500 Body weight 86.18 kg DO Jennie Durand Work Phone: [facility] 08-14-2023 16:43-0500 Body height 170.18 cm DO Jennie Durand Work Phone: [facility] 08-14-2023 16:43-0500 Body temperature 98.2 [degF] DO Jennie Durand Work Phone: [facility] 08-14-2023 16:43-0500 Body weight 88.6 kg DO Jennie Durand Work Phone: [facility] 08-14-2023 16:43-0500 Diastolic blood pressure 66 mm[Hg] DO Jennie Durand Work Phone: [facility] 08-14-2023 16:43-0500 Heart rate 80 /min DO Jennie Durand Work Phone: [facility] 08-14-2023 16:43-0500 Respiratory rate 18 /min DO Jennie Durand Work Phone: [facility] 08-14-2023 16:43-0500 SaO2% (BldA) [Mass fraction] 98 % DO Jennie Durand Work Phone: [facility] 08-14-2023 16:43-0500 Systolic blood pressure 118 mm[Hg] DO Jennie Durand Work Phone: [facility] 08-13-2023 11:15-0500 Body height 170.18 cm Imad Asaad Other [employer] Other 08-13-2023 11:15-0500 Body mass index (BMI) [Ratio] 30.54 kg/m2 Imad Asaad Other [employer] Other 08-13-2023 11:15-0500 Body weight 88.45 kg Imad Asaad Other [employer] Other 08-13-2023 11:15-0500 Diastolic blood pressure 84 mm[Hg] Imad Asaad Other [employer] Other 08-13-2023 11:15-0500 Systolic blood pressure 133 mm[Hg] Imad Asaad Other [employer] Other 07-08-2023 12:05-0400 Body height 170.18 cm Ania Shipleymond Other [employer] Other 07-08-2023 12:05-0400 Body mass index (BMI) [Ratio] 30.22 kg/m2 Ania Tegan Other [employer] Other 07-08-2023 12:05-0400 Body temperature 99 [degF] Ania Javed Other [employer] Other 07-08-2023 12:05-0400 Body weight 87.54 kg Ania Tegan Other [employer] Other 07-08-2023 12:05-0400 Diastolic blood pressure 64 mm[Hg] Ania Tegan Other [employer] Other 07-08-2023 12:05-0400 Respiratory rate 19 /min Ania Tegan Other [employer] Other 07-08-2023 12:05-0400 SaO2% (BldA) [Mass fraction] 98 % Ania Tegan Other [employer] Other 07-08-2023 12:05-0400 Systolic blood pressure 110 mm[Hg] Ania Tegan Other [employer] Other 07-03-2023 11:05-0400 Diastolic blood pressure 80 mm[Hg] DO Jennie Durand Work Phone: [facility] 07-03-2023 11:05-0400 Heart rate 78 /min DO Jennie Durand Work Phone: [facility] 07-03-2023 11:05-0400 Respiratory rate 16 /min DO Jennie Durand Work Phone: [facility] 07-03-2023 11:05-0400 SaO2% (BldA) [Mass fraction] 99 % DO Jennie Durand Work Phone: [facility] 07-03-2023 11:05-0400 Systolic blood pressure 119 mm[Hg] DO Jennie Durand Work Phone: [facility] 07-03-2023 10:10-0400 Body height 170.18 cm DO Jennie Durand Work Phone: [facility] 07-03-2023 10:10-0400 Body temperature 98.7 [degF] DO Jennie Durand Work Phone: [facility] 07-03-2023 10:10-0400 Body weight 86.9 kg DO Jennie Hameede Work Phone: [facility] 07-02-2023 14:06-0400 Body temperature 98.06 [degF] Bakari Henrik [facility] 07-02-2023 14:06-0400 Diastolic blood pressure 78 mm[Hg] Bakari Henrik [facility] 07-02-2023 14:06-0400 Heart rate 91 /min Bakari Henrik [facility] 07-02-2023 14:06-0400 Respiratory rate 18 /min Bakari Henrik [facility] 07-02-2023 14:06-0400 SaO2% (BldA) [Mass fraction] 100 % Bakari Henrik [facility] 07-02-2023 14:06-0400 Systolic blood pressure 121 mm[Hg] Bakari Henrik [facility] 01-15-2023 13:30-0400 Diastolic blood pressure 85 mm[Hg] Bakari Henrik [facility] 01-15-2023 13:30-0400 Heart rate 71 /min Bakari Henrik [facility] 01-15-2023 13:30-0400 Mean blood pressure 98 mm[Hg] Bakari Henrik [facility] 01-15-2023 13:30-0400 Respiratory rate 18 /min Bakari Henrik [facility] 01-15-2023 13:30-0400 SaO2% (BldA) [Mass fraction] 100 % Bakari Henrik [facility] 01-15-2023 13:30-0400 Systolic blood pressure 125 mm[Hg] Bakari Henrik [facility] 01-15-2023 12:30-0400 Diastolic blood pressure 99 mm[Hg] Bakari Henrik [facility] 01-15-2023 12:30-0400 Heart rate 78 /min Bakari Henrik [facility] 01-15-2023 12:30-0400 Mean blood pressure 107 mm[Hg] Bakari Henrik [facility] 01-15-2023 12:30-0400 Respiratory rate 18 /min Bakari Henrik [facility] 01-15-2023 12:30-0400 SaO2% (BldA) [Mass fraction] 100 % Bakari Henrik [facility] 01-15-2023 12:30-0400 Systolic blood pressure 122 mm[Hg] Bakari Henrik [facility] 01-15-2023 10:50-0400 Body temperature 98.42 [degF] Bakari Henrik [facility] 01-15-2023 10:50-0400 Diastolic blood pressure 74 mm[Hg] Bakari Chester [facility] 01-15-2023 10:50-0400 Heart rate 77 /min Bakari Chester [facility] 01-15-2023 10:50-0400 Mean blood pressure 92 mm[Hg] Bakari Chester [facility] 01-15-2023 10:50-0400 Respiratory rate 17 /min Bakari Chester [facility] 01-15-2023 10:50-0400 SaO2% (BldA) [Mass fraction] 99 % Bakari Chester [facility] 01-15-2023 10:50-0400 Systolic blood pressure 129 mm[Hg] Bakari Chester [facility] 12-05-2022 13:20-0400 Diastolic blood pressure 74 mm[Hg] Gal Das [facility] 12-05-2022 13:20-0400 Heart rate 58 /min Gal Das [facility] 12-05-2022 13:20-0400 Respiratory rate 18 /min Gal Thiago [facility] 12-05-2022 13:20-0400 SaO2% (BldA) [Mass fraction] 100 % Gal Thiago [facility] 12-05-2022 13:20-0400 Systolic blood pressure 110 mm[Hg] Gal Das [facility] 12-05-2022 12:00-0400 Heart rate 54 /min Gal Thiago [facility] 12-05-2022 12:00-0400 SaO2% (BldA) [Mass fraction] 100 % Gal Das [facility] 12-05-2022 11:59-0400 Diastolic blood pressure 72 mm[Hg] Gal Das [facility] 12-05-2022 11:59-0400 Mean blood pressure 84 mm[Hg] Gal Das [facility] 12-05-2022 11:59-0400 Systolic blood pressure 109 mm[Hg] Gal Dsa [facility] 12-05-2022 11:53-0400 Body temperature 97.52 [degF] Gal Das [facility] 12-05-2022 11:53-0400 Diastolic blood pressure 73 mm[Hg] Gal Das [facility] 12-05-2022 11:53-0400 Heart rate 59 /min Gal Das [facility] 12-05-2022 11:53-0400 Mean blood pressure 87 mm[Hg] Gal Das [facility] 12-05-2022 11:53-0400 Respiratory rate 14 /min Gal Das [facility] 12-05-2022 11:53-0400 SaO2% (BldA) [Mass fraction] 100 % Gal Das [facility] 12-05-2022 11:53-0400 Systolic blood pressure 115 mm[Hg] Gal Das [facility] 12-05-2022 11:40-0400 Mean blood pressure 80 mm[Hg] Gal Das [facility] 12-05-2022 11:40-0400 Respiratory rate 18 /min Gal Das [facility] 12-05-2022 11:30-0400 Mean blood pressure 90 mm[Hg] Gal Das [facility] 12-05-2022 11:15-0400 Body temperature 97.34 [degF] Gal Das [facility] 12-05-2022 11:10-0400 Respiratory rate 18 /min Gal Das [facility] 12-05-2022 11:05-0400 Respiratory rate 21 /min Gal Das [facility] 12-05-2022 11:00-0400 Respiratory rate 11 /min Gal Das [facility] 12-05-2022 07:15-0400 Mean blood pressure 79 mm[Hg] Gal Das [facility] 12-05-2022 07:15-0400 Body temperature 97.88 [degF] Gal Das [facility] 12-05-2022 07:15-0400 Heart rate 72 /min Gal Das [facility] 12-05-2022 07:12-0400 Mean blood pressure 82 mm[Hg] Gal Das [facility] 11-21-2022 10:44-0500 Diastolic blood pressure 75 mm[Hg] Gal Das [facility] 11-21-2022 10:44-0500 Heart rate 67 /min Gal Das [facility] 11-21-2022 10:44-0500 Mean blood pressure 88 mm[Hg] Gal Marinten [facility] 11-21-2022 10:44-0500 Systolic blood pressure 112 mm[Hg] Gal Marinten [facility] 11-21-2022 10:44-0500 Heart rate 71 /min Gal Das [facility] 11-21-2022 10:44-0500 SaO2% (BldA) [Mass fraction] 100 % Gal Das [facility] 11-21-2022 10:43-0500 Diastolic blood pressure 79 mm[Hg] Gal Das [facility] 11-21-2022 10:43-0500 Mean blood pressure 91 mm[Hg] Gal Das [facility] 11-21-2022 10:43-0500 Systolic blood pressure 116 mm[Hg] Gal Das [facility] 11-21-2022 10:43-0500 Respiratory rate 16 /min Gal Das [facility] 11-20-2022 08:09-0500 Body height 170.2 cm Eileen Alvarez MD Work Phone: [facility] 11-20-2022 08:09-0500 Body weight 85.73 kg Eileen Alvarez MD Work Phone: [facility] 11-20-2022 08:09-0500 Diastolic blood pressure 81 mm[Hg] Eileen Alvarez MD Work Phone: [facility] 11-20-2022 08:09-0500 Heart rate 67 /min Eileen Alvarez MD Work Phone: [facility] 11-20-2022 08:09-0500 SaO2% (BldA) [Mass fraction] 100 % Eileen Alvarez MD Work Phone: [facility] 11-20-2022 08:09-0500 Systolic blood pressure 137 mm[Hg] Eileen Alvarez MD Work Phone: [facility] 11-03-2022 12:57-0500 Blood Pressure Location Nakia Charisse [facility] 11-03-2022 12:57-0500 Body temperature 98.24 [degF] Nakia Mcqueen [facility] 11-03-2022 12:57-0500 Diastolic blood pressure 80 mm[Hg] Nakia Jhaveriler [facility] 11-03-2022 12:57-0500 Heart rate 85 /min Nakia Mcqueen [facility] 11-03-2022 12:57-0500 SaO2% (BldA) [Mass fraction] 98 % Nakia Mcqueen [facility] 11-03-2022 12:57-0500 Systolic blood pressure 104 mm[Hg] Nakia Mcqueen [facility] 09-24-2022 06:57-0500 Blood Pressure Location Aimee Valadezell [facility] 09-24-2022 06:57-0500 Body temperature 98.24 [degF] Aimee Walker [facility] 09-24-2022 06:57-0500 Diastolic blood pressure 64 mm[Hg] Aimee Walker [facility] 09-24-2022 06:57-0500 Heart rate 77 /min Aimee Walker [facility] 09-24-2022 06:57-0500 SaO2% (BldA) [Mass fraction] 99 % Aimee Walker [facility] 09-24-2022 06:57-0500 Systolic blood pressure 118 mm[Hg] Aimee Walker [facility] 08-22-2022 10:31-0500 Blood Pressure Location [facility] 08-22-2022 10:31-0500 Body temperature 98.06 [degF] Rahul Rita [facility] 08-22-2022 10:31-0500 Diastolic blood pressure 76 mm[Hg] [facility] 08-22-2022 10:31-0500 Heart rate 95 /min [facility] 08-22-2022 10:31-0500 SaO2% (BldA) [Mass fraction] 98 % [facility] 08-22-2022 10:31-0500 Systolic blood pressure 110 mm[Hg] [facility] 08-19-2022 09:45-0500 Diastolic blood pressure 69 mm[Hg] DO Jennie Durand Work Phone: [facility] 08-19-2022 09:45-0500 Heart rate 82 /min DO Jennie Durand Work Phone: [facility] 08-19-2022 09:45-0500 Respiratory rate 16 /min DO Jennie Durand Work Phone: [facility] 08-19-2022 09:45-0500 SaO2% (BldA) [Mass fraction] 95 % DO Jennie Durand Work Phone: [facility] 08-19-2022 09:45-0500 Systolic blood pressure 104 mm[Hg] DO Jennie Durand Work Phone: [facility] 08-19-2022 07:41-0500 Body height 170.18 cm DO Jennie Durand Work Phone: [facility] 08-19-2022 07:41-0500 Body weight 83.6 kg DO Jennie Durand Work Phone: [facility] 08-18-2022 17:26-0500 Body temperature 98.06 [degF] Alexis Shukla [facility] 08-18-2022 17:26-0500 Diastolic blood pressure 83 mm[Hg] Alexis Shukla [facility] 08-18-2022 17:26-0500 Heart rate 84 /min Alexis Shukla [facility] 08-18-2022 17:26-0500 Respiratory rate 18 /min Alexis Shukla [facility] 08-18-2022 17:26-0500 SaO2% (BldA) [Mass fraction] 98 % Alexis Shukla [facility] 08-18-2022 17:26-0500 Systolic blood pressure 120 mm[Hg] Alexis Shukla [facility] 08-12-2022 15:50-0500 Body temperature 97.9 [degF] DO Jennie Durand Work Phone: [facility] 08-12-2022 15:50-0500 Diastolic blood pressure 83 mm[Hg] DO Jennie Durand [facility] [place] 08-12-2022 15:50-0500 Heart rate 64 /min DO Jennie Durand Work Phone: [facility] 08-12-2022 15:50-0500 Respiratory rate 20 /min DO Jennie Durand Work Phone: [facility] 08-12-2022 15:50-0500 SaO2% (BldA) [Mass fraction] 100 % DO Jennie Durand Work Phone: [facility] [place] 08-12-2022 15:50-0500 Systolic blood pressure 136 mm[Hg] DO Jennie Durand Work Phone: [facility] [place] 08-12-2022 11:00-0500 Body height 170.18 cm DO Jennie Durand Work Phone: [facility] [place] 08-12-2022 06:00-0500 Body weight 88.1 kg DO Jennie Durand Work Phone: [facility] [place] 08-08-2022 10:30-0500 Diastolic blood pressure 76 mm[Hg] Bakari Henrik [facility] 08-08-2022 10:30-0500 Heart rate 58 /min Bakari Henrik [facility] 08-08-2022 10:30-0500 Mean blood pressure 88 mm[Hg] Bakari Henrik [facility] 08-08-2022 10:30-0500 Respiratory rate 20 /min Bakari Henrik [facility] 08-08-2022 10:30-0500 SaO2% (BldA) [Mass fraction] 100 % Bakari Chester [facility] 08-08-2022 10:30-0500 Systolic blood pressure 112 mm[Hg] Bakari Henrik [facility] 08-08-2022 10:00-0500 Diastolic blood pressure 86 mm[Hg] Bakari Henrik [facility] 08-08-2022 10:00-0500 Heart rate 64 /min Bakari Henrik [facility] 08-08-2022 10:00-0500 Mean blood pressure 97 mm[Hg] Bakari Henrik [facility] 08-08-2022 10:00-0500 Systolic blood pressure 120 mm[Hg] Bakari Henrik [facility] 08-08-2022 09:13-0500 gluc 98 mg/dL Bakari Chester [facility] 08-08-2022 09:13-0500 gluc Bakari Chester [facility] 08-08-2022 09:06-0500 Body temperature 97.7 [degF] Bakari Chester [facility] 08-08-2022 09:06-0500 Diastolic blood pressure 87 mm[Hg] Bakari Chester [facility] 08-08-2022 09:06-0500 Heart rate 79 /min Bakari Chester [facility] 08-08-2022 09:06-0500 Respiratory rate 18 /min Bakari Chester [facility] 08-08-2022 09:06-0500 SaO2% (BldA) [Mass fraction] 100 % Bakari Chester [facility] 08-08-2022 09:06-0500 Systolic blood pressure 127 mm[Hg] Bakari Chester [facility] 07-21-2022 10:50-0500 Blood Pressure Location Aimee Walker [facility] 07-21-2022 10:50-0500 Body temperature 97.7 [degF] Aimee Valadezell [facility] 07-21-2022 10:50-0500 Diastolic blood pressure 72 mm[Hg] [facility] 07-21-2022 10:50-0500 Heart rate 74 /min [facility] 07-21-2022 10:50-0500 SaO2% (BldA) [Mass fraction] 99 % [facility] 07-21-2022 10:50-0500 Systolic blood pressure 128 mm[Hg] [facility] 05-13-2022 10:09-0400 Diastolic blood pressure 74 mm[Hg] Alexis [facility] [place] 05-13-2022 10:09-0400 Heart rate 68 /min Alexis [facility] [place] 05-13-2022 10:09-0400 Systolic blood pressure 112 mm[Hg] Alexis [facility] 04-21-2022 09:39-0400 Blood Pressure Location [facility] 04-21-2022 09:39-0400 Body temperature 98.24 [degF] [facility] 04-21-2022 09:39-0400 Diastolic blood pressure 72 mm[Hg] [facility] 04-21-2022 09:39-0400 Heart rate 94 /min [facility] 04-21-2022 09:39-0400 SaO2% (BldA) [Mass fraction] 100 % [facility] 04-21-2022 09:39-0400 Systolic blood pressure 112 mm[Hg] [facility] 04-20-2022 14:56-0400 Body temperature 98.24 [degF] Jose Correia [facility] 04-20-2022 14:56-0400 Diastolic blood pressure 72 mm[Hg] [facility] 04-20-2022 14:56-0400 Heart rate 69 /min [facility] 04-20-2022 14:56-0400 Respiratory rate 18 /min [facility] 04-20-2022 14:56-0400 SaO2% (BldA) [Mass fraction] 99 % [facility] 04-20-2022 14:56-0400 Systolic blood pressure 111 mm[Hg] [facility] 04-03-2022 19:17-0400 Hourly Rounding Kaylinn Dokken [facility] 04-03-2022 19:17-0400 Promise to Return Kaylinn Dokken [facility] 04-03-2022 19:15-0400 Diastolic blood pressure 71 mm[Hg] Kaylinn Dokken [facility] 04-03-2022 19:15-0400 Heart rate 63 /min Kaylinn Dokken [facility] 04-03-2022 19:15-0400 Mean blood pressure 82 mm[Hg] Kaylinn Dokken [facility] 04-03-2022 19:15-0400 Respiratory rate 18 /min Kaylinn Dokken [facility] 04-03-2022 19:15-0400 SaO2% (BldA) [Mass fraction] 100 % Kaylinn Dokken [facility] 04-03-2022 19:15-0400 Systolic blood pressure 105 mm[Hg] Kaylinn Dokken [facility] 04-03-2022 17:09-0400 Body temperature 98.06 [degF] Marlynn Darlineen [facility] 04-03-2022 17:09-0400 Diastolic blood pressure 83 mm[Hg] Raymondinn Dokken [facility] 04-03-2022 17:09-0400 Heart rate 87 /min Marlynn kken [facility] 04-03-2022 17:09-0400 Respiratory rate 18 /min Larry Gregorioen [facility] 04-03-2022 17:09-0400 SaO2% (BldA) [Mass fraction] 99 % Marlynn kken [facility] 04-03-2022 17:09-0400 Systolic blood pressure 119 mm[Hg] Marlynn kken [facility] 02-06-2022 09:06-0400 Blood Pressure Location [facility] 02-06-2022 09:06-0400 Body temperature 97.52 [degF] [facility] 02-06-2022 09:06-0400 Diastolic blood pressure 72 mm[Hg] [facility] 02-06-2022 09:06-0400 Heart rate 81 /min [facility] 02-06-2022 09:06-0400 SaO2% (BldA) [Mass fraction] 100 % [facility] 02-06-2022 09:06-0400 Systolic blood pressure 130 mm[Hg] Aimee Valadezell [facility] 01-29-2022 10:31-0400 Blood Pressure Location [facility]imee Valadez[facility] 01-29-2022 10:31-0400 Body temperature 97.16 [degF] [facility]e Valadez[facility] 01-29-2022 10:31-0400 Diastolic blood pressure 76 mm[Hg] [facility] 01-29-2022 10:31-0400 Heart rate 94 /min [facility]imee Valadezell [facility] 01-29-2022 10:31-0400 SaO2% (BldA) [Mass fraction] 98 % [facility]imee Valadezell [facility] 01-29-2022 10:31-0400 Systolic blood pressure 118 mm[Hg] [facility] 02-01-2021 07:15-0400 Body temperature 97.7 [degF] Berry Lawson MD Work Phone: [employer] Work Phone: 02-01-2021 07:15-0400 Diastolic blood pressure 63 mm[Hg] Berry Lawson MD Work Phone: [employer] Work Phone: 02-01-2021 07:15-0400 Heart rate 82 /min Berry Lawson MD Work Phone: [employer] Work Phone: 02-01-2021 07:15-0400 Respiratory rate 18 /min Berry Lawson MD Work Phone: [employer] Work Phone: 02-01-2021 07:15-0400 SaO2% (BldA) [Mass fraction] 98 % Berry Lawson MD Work Phone: [employer] Work Phone: 02-01-2021 07:15-0400 Systolic blood pressure 110 mm[Hg] Berry Lawson MD Work Phone: [employer] Work Phone: 01-30-2021 16:54-0400 Body height 170.2 cm Berry Lawson MD Work Phone: [employer] Work Phone: 01-30-2021 16:54-0400 Body mass index (BMI) [Ratio] 38.53 kg/m2 Berry Lawson MD Work Phone: [employer] Work Phone: 01-30-2021 16:54-0400 Body weight 111.58 kg Berry Lawson MD Work Phone: [employer] Work Phone: 01-30-2021 14:27-0400 Diastolic blood pressure 66 mm[Hg] David Nash MD Work Phone: [employer] Work Phone: 01-30-2021 14:27-0400 Heart rate 93 /min David Nash MD Work Phone: [employer] Work Phone: 01-30-2021 14:27-0400 Respiratory rate 16 /min David Nash MD Work Phone: [employer] Work Phone: 01-30-2021 14:27-0400 SaO2% (BldA) [Mass fraction] 98 % David Nash MD Work Phone: [employer] Work Phone: 01-30-2021 14:27-0400 Systolic blood pressure 107 mm[Hg] David Nash MD Work Phone: [employer] Work Phone: 01-30-2021 09:51-0400 Body temperature 97.2 [degF] David Nash MD Work Phone: [employer] Work Phone: 01-26-2021 09:00-0400 Body temperature 98.2 [degF] [employer] Work Phone: [employer] Work Phone: 01-26-2021 09:00-0400 Diastolic blood pressure 77 mm[Hg] Gamaliel Vickers DO Work Phone: [employer] Work Phone: 01-26-2021 09:00-0400 Heart rate 90 /min [employer]aliel [employer] Work Phone: [employer] Work Phone: 01-26-2021 09:00-0400 Respiratory rate 16 /min Gamaliel Vickers DO Work Phone: [employer] Work Phone: 01-26-2021 09:00-0400 SaO2% (BldA) [Mass fraction] 96 % Gamaliel Vickers DO Work Phone: [employer] Work Phone: 01-26-2021 09:00-0400 Systolic blood pressure 111 mm[Hg] Gamalielkemar Vickers DO Work Phone: [employer] Phone: 01-08-2021 07:35-0400 Body temperature 97.81 [degF] [employer] Work Phone: [employer] Phone: 01-08-2021 07:35-0400 SaO2% (BldA) [Mass fraction] 97 % [employer]aliel [employer] Work Phone: [employer] Phone: 01-08-2021 07:29-0400 Diastolic blood pressure 77 mm[Hg] [employer] Work Phone: [employer] Phone: 01-08-2021 07:29-0400 Heart rate 87 /min Gamaliel Vickers [employer] Phone: [facility] Phone: 01-08-2021 07:29-0400 Respiratory rate 18 /min Gamaliel Vickers [employer] Phone: [facility] Phone: 01-08-2021 07:29-0400 Systolic blood pressure 123 mm[Hg] Gamaliel Vickers DO [employer] Phone: [employer] Phone: 01-07-2021 06:29-0400 Body height 170.2 cm Gamaliel [employer] Work Phone: [employer] Phone: 01-07-2021 06:29-0400 Body mass index (BMI) [Ratio] 40.68 kg/m2 [employer] Work Phone: [employer] Phone: 01-07-2021 06:29-0400 Body weight 117.8 kg Gamaliel [employer] Work Phone: [employer] Phone: 12-24-2020 10:33-0400 Body height 170.[address] [facility] [employer] Phone: 12-24-2020 10:33-0400 Body mass index (BMI) [Ratio] 42.76 kg/m2 St [facility] [employer] Phone: 12-24-2020 10:33-0400 Body temperature 97.7 [degF] St [facility] Phone: 12-24-2020 10:33-0400 Body weight 123.[address] [facility] [employer] Phone: 12-24-2020 10:33-0400 Diastolic blood pressure 76 mm[Hg] [facility] [employer] Phone: 12-24-2020 10:33-0400 Heart rate 71 /min St [facility] [employer] Phone: 12-24-2020 10:33-0400 Respiratory rate 18 /min St [facility] [employer] Phone: 12-24-2020 10:33-0400 SaO2% (BldA) [Mass fraction] 98 % [facility] [employer] Phone: 12-24-2020 10:33-0400 Systolic blood pressure 115 mm[Hg] [facility] [employer] Phone: 09-28-2020 08:40-0500 BP Diastolic 75 mm[Hg] [facility] [place] 09-28-2020 08:40-0500 BP Systolic 117 mm[Hg] [facility] [place] 09-28-2020 08:40-0500 Pulse (Heart Rate) 84 /min [employer] [facility] 09-28-2020 08:40-0500 Pulse Oximetry 100 % [facility] [place] 09-28-2020 08:25-0500 Body Temperature 96.8 [degF] [facility] 09-28-2020 08:25-0500 Respiratory Rate 23 /min [facility] 09-28-2020 07:07-0500 BMI (Body Mass Index) 45.66 kg/m2 Gamaliel Vickers [facility] 09-28-2020 07:07-0500 Body weight 132.22 kg Gamaliel [facility] 09-28-2020 07:07-0500 Height 170.2 cm Gamaliel [facility] Encounters Encounter Date Encounter Type Care Provider Facility Start: 09-04-2024 End: 09-05-2024 ambulatory Tevin Carson DO Work Phone: Family Medicine Comment on above: Blood work Start: 08-25-2024 End: 08-25-2024 ambulatory Mary Jo Trinidad RN Work Phone: [employer] Start: 08-25-2024 End: 08-25-2024 Patient encounter procedure Mar yJo Trinidad RN Work Phone: [employer] Comment on above: ACSu LAN RN ( ED Utilization Review per request of payor/) Start: 08-18-2024 End: 08-18-2024 Patient encounter procedure TIFFANIE MARADIAGA [facility] Start: 08-17-2024 End: 08-17-2024 Refill Tevin Carson DO Work Phone: [facility] Comment on above: Med Change Request Start: 08-08-2024 End: 08-08-2024 Office outpatient new 45 minutes Aleah Howard MD Work Phone: [facility] Comment on above: Angina pectoris; Shortness of breath; Palpitations; Family history of ischemic heart disease; Primary hypertension; Current smoker; BMI 29.0-29.9,adult Start: 08-08-2024 End: 08-08-2024 ambulatory [facility] Start: 07-26-2024 End: 07-26-2024 ambulatory TEVIN CARSON Facility:[facility] Start: 07-25-2024 End: 07-25-2024 [facility] TEVIN KATEE Facility:[facility] Start: 07-25-2024 End: 07-25-2024 Office outpatient visit 25 minutes Tevin Carson DO Work Phone: Family Medicine Comment on above: Bipolar affective di sorder in remission (HCC) (Primary Dx); Borderline personality disorder (HCC); Anxiety disorder, unspecified type; Chest pain, unspecified type; Iron deficiency anemia, unspecified iron deficiency anemia type Start: 07-22-2024 End: 07-22-2024 ambulatory Tevin Carson DO Work Phone: Family Medicine Comment on above: Depression and anxie ty Anxiety; Depression Start: 07-13-2024 End: 07-13-2024 Telephone encounter Patricia Tate RN Mammography Comment on above: Results; Appointment Start: 07-11-2024 End: 07-11-2024 [facility] TEVIN CARSON [facility] Start: 07-11-2024 End: 07-11-2024 Subsequent hospital visit by physician Procedure Mammo [facility] Comment on above: Abnormal mammogram o f left breast [R92.8] Start: 07-04-2024 End: 07-04-2024 [facility] TEVIN CARSON Facility:[facility] Start: 07-04-2024 End: 07-04-2024 Patient encounter procedure Fatuma Tyler APRN.ELEVATOR INSPECTOR Work Phone: [facility] Comment on above: Abnormal mammogram ( Primary Dx); Mass of upper outer quadrant of left breast; Fibrocystic breast changes of both breasts; Mastodynia; Inversion of left nipple; Bloody discharge from left nipple; Nipple discharge Start: 07-04-2024 End: 07-04-2024 Subsequent hospital visit by physician [facility] Work Phone: Mammography Comment on above: Mass of upper outer quadrant of left breast [N63.21] Start: 07-01-2024 End: 07-01-2024 [facility] TEVIN CARSON Facility:[facility] Start: 07-01-2024 End: 07-01-2024 Office outpatient visit 25 minutes Tevin Carson DO Work Phone: Family Medicine Comment on above: Chest pain, unspecif ied type (Primary Dx); Palpitations; Bipolar affective disorder in remission (HCC); History of substance abuse (HCC); Borderline personality disorder (HCC); Serum calcium elevated Start: 06-30-2024 End: 07-01-2024 Telephone encounter Fatuma Tyler APRN.CNP Work Phone: [facility] Comment on above: Appointment Start: 05-30-2024 End: 05-30-2024 ambulatory Lenora Yee RN Work Phone: Head [employer] Comment on above: CARMELINA LAN RN ( ED Utilization review per request of payer) Start: 05-11-2024 ambulatory Lindy Keen Facility :[facility] Start: 04-26-2024 ambulatory Elia mcdowell DO Work Phone: Family Medicine Start: 03-08-2024 End: 03-08-2024 Emergency department patient visit Alexis Shukla [facility] Start: 03-08-2024 End: 03-08-2024 Subsequent hospital visit by physician Mri [facility] (Lg Bore/1.5t) Radiology MRI Comment on above: 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 ] Start: 03-08-2024 End: 03-08-2024 ambulatory LEONELA AGUIRRE Facility:[facility] Start: 03-08-2024 End: 03-08-2024 Patient encounter [...] encounter status Elia Baires DO Work Phone: [facility] Work Phone: Start: 02-25-2024 End: 02-25-2024 ambulatory ELIA BAIRES Facility:[facility] Start: 01-13-2024 End: 01-14-2024 ambulatory [facility] Start: 01-05-2024 Telephone encounter Elia rob DO Work Phone: Family Medicine Start: 01-04-2024 End: 01-04-2024 ambulatory ELIA BAIRES Facility:[facility] Start: 01-04-2024 End: 01-04-2024 Patient encounter procedure Elia Baires DO Work Phone: Family Medicine Comment on above: Panic disorder (Prim masoud Dx); Borderline personality disorder (HCC); Bipolar affective disorder in remission (HCC); Chronic alcoholism in remission (HCC); Routine health maintenance Start: 01-04-2024 End: 01-04-2024 Patient encounter status Elia Baires DO Work Phone: [facility] Start: 12-31-2023 End: 12-31-2023 Emergency department patient visit DO Jennie Durand Work Phone: [facility] Work Phone: Start: 12-25-2023 ambulatory SELF REFERRAL Facility: [facility] Start: 12-24-2023 End: 12-24-2023 Emergency department patient visit DO Jennie Durand Work Phone: [facility] Work Phone: Start: 2023 ambulatory Otto Larsen Facility:[facility] Start: 12-10-2023 End: 12-10-2023 Emergency department patient visit DO Jennie Durand Work Phone: [facility] Work Phone: Start: 12-09-2023 End: 03-27-2024 ambulatory Jennie Durand Facility:[facility] Start: 12-09-2023 End: 12-09-2023 Patient encounter procedure Jennie Ngo Ladarius [facility] Start: 10-23-2023 End: 10-26-2023 [facility] Start: 10-12-2023 End: 10-15-2023 ambulatory GAMALIEL Gastelum [facility] Start: 09-18-2023 End: 09-18-2023 ambulatory GAMALIEL Gastelum [facility] Start: 09-18-2023 End: 09-18-2023 Subsequent hospital visit by physician Gamaliel Vickers DO Work Phone: [facility] Start: 08-31-2023 End: 09-01-2023 ambulatory LEONELA AGUIRRE Facility:[facility] Start: 08-28-2023 End: 08-28-2023 ambulatory Imad Asaad Other [employer] Other Start: 08-28-2023 Telephone encounter Imad Asaad [facility] Start: 08-18-2023 End: 08-21-2023 [facility] Start: 08-15-2023 End: 08-15-2023 Emergency department patient visit DO Jennie Durand Work Phone: [facility] Work Phone: Start: 08-14-2023 End: 08-14-2023 Emergency department patient visit DO Jennie Durand Work Phone: [facility] Work Phone: Start: 08-13-2023 End: 08-13-2023 ambulatory Imad Asaad Other [employer] Other Start: 08-13-2023 Office outpatient ne w 45 minutes Imad Asaad [facility] Start: 08-12-2023 End: 08-15-2023 ambulatory [facility] Start: 07-30-2023 End: 07-31-2023 ambulatory JENNIE Jeni DURAND [facility] Start: 07-08-2023 End: 07-08-2023 ambulatory Ania Javed Other [employer] Other Start: 07-08-2023 Office outpatient ne w 20 minutes Ania Javed [facility] Start: 07-03-2023 End: 07-03-2023 Emergency department patient visit DO Jennie Durand Work Phone: [facility] Work Phone: Start: 07-02-2023 End: 07-02-2023 Emergency department patient visit Bakari Chester [facility] Start: 06-10-2023 End: 06-10-2023 ambulatory EILEEN ALVAREZ Facility:[facility] Start: 06-09-2023 End: 06-09-2023 Emergency department patient visit Alexis Shukla Facility:[facility] Start: 06-03-2023 Refill Eileen Alvarez MD Work Phone: Neurology Comment on above: Refill Request Start: 03-19-2023 End: 03-19-2023 ambulatory SPOOL SALVAGER GANESH CORDERO Facility: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] Start: 01-15-2023 End: 01-15-2023 Emergency department patient visit Bakari Chester [facility] Start: 01-02-2023 End: 01-02-2023 Patient encounter procedure Nakia Mcque[facility] Start: 12-12-2022 Refill Eileen Alvarez MD Work Phone: Neurology Comment on above: Refill Request Start: 12-05-2022 End: 12-05-2022 Admission to same day surgery center Gal Das [facility] Start: 11-21-2022 End: 11-21-2022 Patient encounter procedure Gal Das [facility] Start: 11-20-2022 End: 11-20-2022 ambulatory EILEEN ALVAREZ Facility:[facility] Start: 11-20-2022 End: 11-20-2022 Patient encounter procedure Eileen Alvarez MD Work Phone: Neurology Comment on above: Idiopathic intracran ial hypertension (Primary Dx); Depression, unspecified depression type; Primary hypertension; Hx of gastric bypass; H/O foot surgery Start: 11-03-2022 End: 11-03-2022 Patient encounter procedure Nakia Mcqueen [facility] Start: 10-30-2022 End: 10-30-2022 ambulatory STEFANIE SINGH . Facility: Start: 10-23-2022 End: 10-23-2022 Lab Drop off Gal Das [facility] Start: 10-14-2022 End: 10-14-2022 Patient encounter procedure Rita Loja [facility] Start: 09-24-2022 End: 09-24-2022 Patient encounter procedure Aimee Walker [facility] Start: 08-22-2022 End: 08-22-2022 Patient encounter procedure Rahul Salinas [facility] Start: 08-19-2022 End: 08-19-2022 ambulatory DO Jennie Durand Work Phone: [facility] Work Phone: Start: 08-19-2022 End: 08-19-2022 Patient encounter procedure DO Jennie Durand Work Phone: [facility] Start: 08-18-2022 End: 08-18-2022 ambulatory RAMSES MARTINEZ . Facility:[facility] Start: 08-18-2022 End: 08-18-2022 Emergency department patient visit Alexis Shukla [facility] Start: 08-16-2022 End: 08-16-[address] NEW DREW . Facility:[facility] Start: 08-12-2022 ambulatory Facility:9 0 Start: 08-11-2022 End: 08-12-2022 Evaluation and management of inpatient DO Jennie Durand Work Phone: [facility] Start: 08-11-2022 End: 08-12-2022 observation encounter DO Jennie Durand Work Phone: [facility] Work Phone: Start: 08-11-2022 End: 08-11-[address] WEI PHAM Facility:[facility] Start: 08-08-2022 End: 08-08-2022 Emergency department patient visit Bakari Chester [facility] Start: 07-21-2022 End: 07-21-2022 Patient encounter procedure Aimee Walker [facility] Start: 07-19-2022 End: 07-19-[address] DOCTOR CAMARILLO Facility:[facility] Start: 07-18-2022 Telephone encounter Eduin Mckee [facility] Surgery Comment on above: Appointment Start: 06-12-2022 End: 06-12-[address] CAROLYNE RALPH Facility:[facility] Start: 06-10-2022 End: 06-10-2022 Patient encounter procedure Aleixs Rivers [facility] Start: 05-30-2022 End: 05-30-2022 ambulatory GABRIELA CAMARGO Facility:[facility] Start: 05-13-2022 End: 05-13-2022 Patient encounter procedure Alexis Rivers [facility] [place] Start: 04-22-2022 End: 04-22-2022 Patient encounter procedure Aimee Walker [facility] Start: 04-21-2022 End: 04-21-2022 Patient encounter procedure Aimee [facility] Start: 04-20-2022 End: 04-20-2022 Emergency department patient visit Jose Castillo Bren [facility] Start: 04-07-2022 End: 04-07-[address] LADY SANCHEZ . Facility:[facility]1 Start: 04-03-2022 End: 04-03-2022 Emergency department patient visit Larry Baker [facility] Start: 04-03-2022 End: 04-03-2022 Well adult monitoring check done Larry Baker [facility] Start: 02-12-2022 End: 02-12-2022 Patient encounter procedure Amee Gonzalez PA-C Work Phone: Otolaryngology Comment on above: Burning tongue (Prim masoud Dx); Irritation of oral cavity Start: 02-08-2022 End: 02-08-2022 ambulatory STEFANIE SINGH . Facility:[facility]1 Start: 02-06-2022 End: 02-06-2022 Patient encounter procedure Aimee [facility] Start: 01-30-2022 End: 01-30-2022 ambulatory GABRIELA CAMARGO Facility:[facility]1 Start: 01-29-2022 End: 01-29-2022 Patient encounter procedure Aimee [facility] Start: 01-27-2022 ambulatory Eduin Mckee MD Work Phone: Plastic Surgery Comment on above: questions Start: 01-10-2022 Telephone encounter Eduin marx MD Work Phone: Plastic Surgery Comment on above: Patient Question; Ap pointment Start: 01-09-2022 End: 01-09-2022 Patient encounter procedure Aimee [facility] Start: 12-27-2021 Telephone encounter Eduin marx MD Work Phone: Plastic Surgery Comment on above: Orders Scheduling Start: 11-16-2021 End: 11-17-[address] WILEY HELM Facility:[facility]1 Start: 02-04-2021 End: 02-06-2021 Subsequent hospital visit by physician [facility] Cat Scan Room [facility] CT Scan Comment on above: Omental infarction ( HCC) Start: 01-30-2021 End: 02-01-2021 Evaluation and management of inpatient Berry Lawson MD Work Phone: [facility] 2C Ortho/Med Surg Comment on above: Surgery, elective (P rimary Dx); Omental infarction (HCC) Start: 01-30-2021 End: 01-30-2021 Emergency department patient visit David Nash MD Work Phone: [facility] ED Comment on above: Generalized abdomina l pain (Primary Dx) Start: 01-26-2021 End: 01-26-2021 Subsequent hospital visit by physician Gamaliel Vickers DO Work Phone: KARYN 3C Med Surg Comment on above: Dehydration Start: 01-07-2021 End: 01-08-2021 Evaluation and management of inpatient Gamaliel Vickers DO Work Phone: STNIKOLAI 2C Ortho/Med Surg Comment on above: Post-op pain (Primar y Dx) Start: 01-03-2021 End: 01-04-2021 ambulatory JENNIE DURAND [facility] Start: 01-03-2021 End: 01-03-2021 Patient encounter status Staz Schedule STAYomi Covid Scre ening Start: 01-03-2021 End: 01-03-2021 Subsequent hospital visit by physician Edgardo Covid Screening Schedule EDGARDO Covid Screening Comment on above: Preop testing (Prima ry Dx) Start: 12-24-2020 End: 12-28-2020 Subsequent hospital visit by physician Christiane Salinas Xr [facility] Radiology Comment on above: Arrived Start: 11-01-2020 End: 11-03-2020 Subsequent hospital visit by physician Chaitanya Jett Radiologist [facility] Radiology Comment on above: Gastroesophageal ref lux disease with esophagitis without hemorrhage Start: 10-26-2020 End: 10-26-2020 Subsequent hospital visit by physician Lyle Covid Screening Schedule YLLE Covid Screening Comment on above: Preoperative testing Start: 09-28-2020 End: 09-28-2020 Subsequent hospital visit by physician Gamaliel Vickers Work Phone: K[facility] [place] Start: 09-24-2020 End: 09-28-2020 Subsequent hospital visit by physician Chaitanya Mcclendon19 Pat Screening Schedule LYLE PRE ADMIT Comment on above: Preoperative testing Start: 11-01-2015 Patient encounter procedure LINDY COTE Facility:[facility] Procedures Date Procedure Procedure Detail Performing Clinician Start: 08-08-2024 Ecg routine ecg w/le ast 12 lds w/i&r Aleah Howard MD Work Phone: Start: 07-11-2024 Digital breast tomosynthesis unilateral Abi Asif MD Work Phone: Start: 07-11-2024 Bx breast w/device 1 st lesion ultrasound guid Abi Asif MD Work Phone: Start: 03-08-2024 H/O: hysterectomy History of hysterectomy Elia Baires DO Work Phone: Start: 03-08-2024 3d rendering w/interp&postproc diff work station Leonela Aguirre MD Work Phone: Start: 03-08-2024 Mri abdomen w/o & w/contrast material Leonela Aguirre MD Work Phone: Start: 01-04-2024 Drug tst prsmv instr mnt chem analyzers pr date Elia Baires DO Work Phone: Start: 12-10-2023 Plain chest X-ray DO Azeb gallegos Ladarius Work Phone: Start: 08-15-2023 Computed tomography of abdomen and pelvis with contrast DO Jennie Durand Work Phone: Start: 01-29-2023 Mra head w/o & w/con trast material Eileen Alvarez MD Work Phone: Start: 12-05-2022 Hysterectomy Gal Marint en Start: 08-12-2022 MRI of head DO Jennie carlos Work Phone: Start: 08-12-2022 MRI venography DO Jennie xie Work Phone: Start: 02-04-2021 Ct abdomen & pelvis w/contrast material Gamaliel Vickers DO Work Phone: Start: 02-01-2021 BASIC METABOLIC [...] exam esop hagus single contrast study Gamaliel Vickers DO Work Phone: Start: 01-08-2021 Basic metabolic pane l calcium total Gamaliel Vickers DO Work Phone: Start: 01-07-2021 Basic metabolic pane l calcium total Gamaliel Vickers DO Work Phone: Start: 01-07-2021 End: 01-07-2021 Laps gstr rstcv px w/byp tian-en-y limb <150 cm Gamaliel Vickers DO Work Phone: Start: 01-07-2021 Urine test visual color cmprsn meths Gamaliel Gastelum [employer] Work Phone: Start: 12-24-2020 Assay of nicotine Enmanuel Gastelum [employer] Work Phone: Start: 12-24-2020 Basic metabolic pane l calcium total Gamaliel Vickers [employer] Work Phone: Start: 12-24-2020 Radiologic exam ches t 2 views Gamaliel Gastelum [employer] Work Phone: Start: 12-24-2020 Ecg routine ecg w/le ast 12 lds trcg only w/o i&r Gamaliel Gastelum [employer] Work Phone: Start: 12-24-2020 EKG REPORT Hpf Scanni ng Start: 11-01-2020 Radex upper gi w/wo glucagon/delay imges w/o kub Gamaliel Gastelum [employer] Work Phone: Start: 09-24-2020 COVID-19 Obdulio Jau regui Work Phone: Start: 02-16-2020 Endoscopic plantar fasciotomy Aimee Walker Start: 06-02-2019 Endoscopic plantar fasciotomy Aimee Walker Comment on above: Endoscopic plantar f asciotomy, right foot Start: 02-11-2019 LEFT ELBOW ULNAR NER VE DECOMPRESSION Aimee Walker Start: 06-10-2013 Microscopic observat ion [Identifier] in Cervix by Cyto stain Aleah Howard MD Work Phone: [phone] Aimee Walker Esophagogastrostomy, antesternal or antethoracic Aimee Walker ft (qualifier value) Aimee Walker Comment on above: reconstruction H/O: tubal ligation Aimee Walker Investigation of transfusion reaction DO Jennie Durand Work Phone: Lumbar puncture to isreal perez intracranial pressure Rahul Mejíaphanvicente Plan of Treatment Date Care Activity Detail Author Start: 2038 Zoster Vaccines (1 of 2) Zoster Vaccines (1 of 2) [facility] Start: 02-24-2027 Diabetes mellitus screening Diabetes Screening [facility] Start: 07-25-2025 Annual PCP Team Chronic Disease Visit Annual PCP Team Chronic Disease Visit [facility] Start: 07-25-2025 BP Controlled (<130/80) BP Controlled (<130/80) [facility] Start: 07-01-2025 Annual PCP Team Chronic Disease Visit Annual PCP Team Chronic Disease Visit [facility] Start: 07-01-2025 BP Controlled (<130/80) BP Controlled (<130/80) [facility] Start: 03-08-2025 Annual PCP Team Chronic Disease Visit Annual PCP Team Chronic Disease Visit [facility] Start: 03-08-2025 BP Controlled (<130/80) BP Controlled (<130/80) [facility] Start: 03-08-2025 Urine microalbumin profile DTaP,Tdap,Td Vaccine (1 - Tdap) [facility] Comment on above: Postponed from 12/18/2007 (Declined at t his time) Start: 01-03-2025 Annual PCP Team Chronic Disease Visit Annual PCP Team Chronic Disease Visit [facility] Start: 10-04-2024 End: 10-04-2024 Patient encounter procedure 10/04/2024 12:40 PM EST Appointment Radiology MRI [address] [place] [address] MRI BREAST WO/W IVCON Radiology MRI Comment on above: MRI BREAST WO/W IVCON Start: 09-19-2024 End: 09-19-2024 Patient encounter procedure 09/19/2024 3:00 PM EST Office Visit [facility] [address] [facility] [address] [place] [address] Aleah Howard MD [address] [address] [place] [address] [facility] Start: 09-13-2024 End: 09-13-2024 Patient encounter procedure Azra Walls Comment on above: ER Follow up Start: 08-24-2024 End: 08-24-2024 ambulatory 08/24/2024 11:20 AM EST [facility] [address] [place] [address] [place] [address] [place] [address] Return in about 4 weeks (around 08/22/2024) Family Medicine Comment on above: Return in about 4 weeks (around ) Start: 08-23-2024 End: 08-23-2024 [facility] Start: 08-08-2024 End: 08-08-2025 NM Heart Perfusion W stress and W radionuclide IV Nuclear Stress Test Cardiac Nuclear Medicine Routine Angina pectoris Shortness of breath Palpitations Family history of ischemic heart disease Primary hypertension Expected: 08/08/2024 (Approximate), Expires: 08/08/2025 [facility] Service Area Work Phone: Comment on above: Expected: 08/08/2024 (Approximate), Expi res: 08/08/2025 Start: 08-08-2024 End: 08-08-2026 US Heart Transthoracic Transthoracic Echo Complete Echocardiography Routine Angina pectoris Shortness of breath Palpitations Family history of ischemic heart disease Primary hypertension Expected: 08/08/2024 (Approximate), Expires: 08/08/2026 [facility] Work Phone: Comment on above: Expected: 08/08/2024 (Approximate), Expi res: 08/08/2026 Start: 08-05-2024 End: 08-05-2024 ambulatory [facility] Comment on above: Fhx of pancreatic cancer, Phx of pancrea tic mass Action taken: Marked in [employer]Base for Schedulers Start: 07-29-2024 End: 07-29-2024 Patient encounter procedure 07/29/2024 2:40 PM EST Office Visit Family Medicine [address] [place] [address] [place] [address] [place], [place] [id number] Return in about 4 weeks (around 07/29/2024) Family Medicine Comment on above: Return in about 4 weeks (around 07/29/20) Start: 07-27-2024 End: 07-27-2024 Patient encounter procedure 07/27/2024 11:30 AM EST Office Visit [facility] [address] [place] [address] Kiera Gilmore DO [address] [place] [address] Teresa David, 07/27/24, 1130am, ty per email [facility] Comment on above: Teresa David, 07/27/24, 1130am, ty per email Start: 07-26-2024 End: 07-26-2024 ambulatory 07/26/2024 8:45 AM EST Results Only [facility] [address] [place] [address] [place] [address] Iron deficiency anemia, unspecified iron deficiency anemia type [D50.9] [facility] Comment on above: Iron deficiency anemia, unspecified iron deficiency anemia type [D50.9] Start: 07-25-2024 End: 07-25-2024 Patient encounter procedure 07/25/2024 3:00 PM EST Office Visit Family Medicine [address] [place] [address] [place] [address] [place] [address] H f/u Family Medicine Comment on above: H f/u Start: 07-25-2024 End: 10-24-2024 CBC W Auto Differential panel - Blood COMPLETE BLOOD COUNT AND DIFFERENTIAL Lab Routine Iron deficiency anemia, unspecified iron deficiency anemia type Expected: 07/25/2024, Expires: 10/24/2024 [facility] Comment on above: Expected: 07/25/2024, Expires: Start: 07-25-2024 End: 10-24-2024 Ferritin [Mass/volume] in Serum or Plasma FERRITIN Lab Routine Iron deficiency anemia, unspecified iron deficiency anemia type Expected: 07/25/2024, Expires: 10/24/2024 [facility] Work Phone: Comment on above: Expected: 07/25/2024, Expires: Start: 07-25-2024 End: 10-24-2024 Iron and Iron binding capacity panel - Serum or Plasma IRON AND TIBC Lab Routine Iron deficiency anemia, unspecified iron deficiency anemia type Expected: 07/25/2024, Expires: 10/24/2024 [facility] Comment on above: Expected: 07/25/2024, Expires: Start: 07-11-2024 End: 07-11-2024 Patient encounter procedure 07/11/2024 8:30 AM EDT Appointment Mammography [id number] [id number] lt breast us core bx Mammography Comment on above: lt breast us core bx Start: 07-04-2024 End: 07-04-2024 Patient encounter procedure [facility] Comment on above: 11:30A IMAGING; Breast lump with pain x 1 yr; imaging done at [facility](pt hand caring images); Bx recommended by PCP; blood nipple discharge- spontaneous- last noticed 8 months ago Breast lump with suraj n x 1 yr; imaging done at [facility](pt hand caring images); Bx recommended by PCP; blood nipple discharge- spontaneous- last noticed 8 months ago Start: 07-01-2024 End: 09-30-2024 25-hydroxyvitamin D3 [Mass/volume] in Serum or Plasma VITAMIN D 25 HYDROXY Lab Routine Serum calcium elevated Expected: 07/01/2024, Expires: 09/30/2024 [facility] Comment on above: Expected: 07/01/2024, Expires: Start: 07-01-2024 End: 09-30-2024 Comprehensive metabolic 2000 panel - Serum or Plasma COMPREHENSIVE METABOLIC PANEL Lab Routine Serum calcium elevated Expected: 07/01/2024, Expires: 09/30/2024 [facility] Comment on above: Expected: 07/01/2024, Expires: Start: 07-01-2024 End: 01-17-2025 Parathyrin.intact [Mass/volume] in Serum or Plasma PTH INTACT Lab Routine Serum calcium elevated Expected: 07/01/2024, Expires: 09/30/2024 [facility] Comment on above: Expected: 07/01/2024, Expires: Start: 07-01-2024 End: 07-01-2024 Patient encounter procedure 07/01/2024 11:00 AM EDT Office Visit Family Medicine [address] [place] [address] [place] [address] [place] [address] est care. Updated PCP per navigation rules. Family Medicine Comment on above: est care. Updated PCP per navigation rul es. Start: 05-31-2024 End: 05-31-2024 Patient encounter procedure 05/31/2024 11:00 AM EDT Office Visit Family Medicine [address] [place] [address] Lisha Bianchi, SKI LIFT OPERATOR.ELEVATOR INSPECTOR [address] [place] [address] ED follow up Family Medicine Comment on above: ED follow up Start: 05-24-2024 End: 05-24-2024 Patient encounter procedure 05/24/2024 11:15 AM EDT Office Visit Endocrinology [address] [place] [address] Austin Leon, SKI LIFT OPERATOR.ELEVATOR INSPECTOR [address] [place] [address] Class 1 obesity due to excess calories without serious comorbidity with body ma Endocrinology Comment on above: Class 1 obesity due to excess calories w ithout serious comorbidity with body ma Start: 05-15-2024 COVID-19 Vaccine ( season) COVID-19 Vaccine ( season) [facility] Start: 05-15-2024 Influenza vaccination [facility] Start: 03-01-2024 End: 03-01-2024 Patient encounter procedure 03/01/2024 11:20 AM EDT Appointment Radiology [address] [place] [address] MRI Panc/Tanmay Wo/W Ivcon Radiology Comment on above: MRI Panc/Tanmay Wo/W Ivcon Start: 01-06-2024 End: 01-06-2024 ambulatory 01/06/2024 8:30 AM EDT Results Only [facility] [address] [place] [address] [facility] Start: 01-04-2024 End: 04-04-2024 CBC panel - Blood by Automated count COMPLETE BLOOD COUNT Lab Routine Routine health maintenance Expected: 01/04/2024, Expires: 04/04/2024 [facility] Work Phone: Comment on above: Expected: 01/04/2024, Expires: Start: 01-04-2024 End: 04-04-2024 Comprehensive metabolic 2000 panel - Serum or Plasma COMPREHENSIVE METABOLIC PANEL Lab Routine Routine health maintenance Expected: 01/04/2024, Expires: 04/04/2024 [facility] Comment on above: Expected: 01/04/2024, Expires: Start: 01-04-2024 End: 04-04-2024 Hemoglobin A1c in Blood HEMOGLOBIN A1C Lab Routine Routine health maintenance Expected: 01/04/2024, Expires: 04/04/2024 [facility] Comment on above: Expected: 01/04/2024, Expires: Start: 01-04-2024 End: 04-04-2024 Hepatitis C virus Ab [Presence] in Serum HEPATITIS C ANTIBODY IA WITH CONFIRMATION Lab Routine Routine health maintenance Expected: 01/04/2024, Expires: 04/04/2024 [facility] Comment on above: Expected: 01/04/2024, Expires: Start: 01-04-2024 End: 04-04-2024 HIV 1+2 Ab [Presence] in Serum or Plasma by Immunoassay HIV 1/2 COMBO WITH REFLEX TO DIFFERENTIATION Lab Routine Routine health maintenance Expected: 01/04/2024, Expires: 04/04/2024 [facility] Comment on above: Expected: 01/04/2024, Expires: Start: 01-04-2024 End: 04-04-2024 Lipid 1996 panel - Serum or Plasma LIPID PANEL BASIC Lab Routine Routine health maintenance Expected: 01/04/2024, Expires: 04/04/2024 [facility] Comment on above: Expected: 01/04/2024, Expires: Start: 12-10-2023 [facility] Start: 09-18-2023 End: 09-18-2023 Egd transoral biopsy single/multiple EGD BIOPSY Gastroesophageal reflux disease, unspecified whether esophagitis present Obesity (BMI 30-39.9) 09/18/2023 8:14 AM [facility] [employer] [facility] Start: 05-15-2023 COVID-19 Vaccine () COVID-19 Vaccine () [facility] Start: 05-15-2023 Influenza vaccination Influenza Vaccine (#1) [facility] Start: 04-14-2023 Influenza vaccination Flu vaccine (#1) [facility] Start: 08-19-2022 Cerebrospinal fluid culture [facility] Start: 08-19-2022 End: 08-19-2022 [facility] Start: 08-12-2022 [facility] Start: 08-12-2022 Glucose [Mass/volume] in Cerebral spinal fluid [facility] Start: 08-12-2022 Protein [Mass/volume] in Cerebral spinal fluid [facility] Start: 08-12-2022 [facility] Start: 08-11-2022 Hospital admission [facility] Start: 08-11-2022 Referral to neurologist [facility] Start: 08-11-2022 [facility] Start: 05-15-2022 Influenza vaccination [facility] Start: 09-29-2021 COVID-19 VACCINE (3 - Booster for Pfizer series) COVID-19 VACCINE (3 - Booster for Pfizer series) [facility] Start: 09-14-2021 DEPRESSION ASSESSMENT DEPRESSION ASSESSMENT [facility] Start: 06-24-2021 COVID-19 VACCINE (3 - Booster for Pfizer series) COVID-19 VACCINE (3 - Booster for Pfizer series) [facility] Start: 06-24-2021 Covid-19 Vaccine (3 - Pfizer series) Covid-19 Vaccine (3 - Pfizer series) [facility] Start: 03-06-2021 End: 03-06-2021 Patient encounter procedure 03/06/2021 Office Visit BariatricGamaliel Robledo, DO [address] [place] [address] [facility] Invasive Bariatric Surg Start: 02-20-2021 End: 02-20-2021 Patient encounter procedure 02/20/2021 Office Visit BariatricGamaliel Robledo, DO [address] [place] [address] [facility] Start: 01-18-2021 End: 01-18-2021 Office Visit 01/18/2021 Office Visit BariatricGamaliel Robledo DO [address] [place] [address] [facility] Invasive Bariatric Surg Start: 01-07-2021 End: 01-07-2021 Hospital Encounter [facility] Comment on above: XI LAPAROSCOPIC ROBOTIC GASTRIC BYPASS R OUX-EN-Y, LIVER BIOPSY, EGD- GI UNIT SCHEDULED. Start: 01-03-2021 End: 01-03-2021 Office Visit [facility] Invasive Bariatric Surg Comment on above: Arrived Start: 12-31-2020 End: 12-31-2021 COVID-19 COVID-19 Lab Routine Preop testing Expected: 12/31/2020, Expires: 12/31/2021 [facility] Work Phone: Comment on above: Expected: 12/31/2020, Expires: Start: 11-21-2020 End: 11-21-2020 Office Visit 11/21/2020 Office Visit BariatricGanesh Jones, SKI LIFT OPERATOR - ELEVATOR INSPECTOR [address] [place] [address] [facility] Start: 11-01-2020 End: 11-01-2020 Appointment 11/01/2020 Appointment Radiology Radiologist, Chaitanya Gen [facility] Start: 10-24-2020 End: 10-24-2020 Office Visit [facility] Start: 09-26-2020 Annual Wellness Visit (AWV) Annual Wellness Visit (AWV) [facility] [place] [place] Start: 2018 HPV TESTING HPV TESTING [facility] Start: 2018 Screening for malignant neoplasm of cervix [facility] Start: 06-10-2016 Screening for malignant neoplasm of cervix [facility] Start: 2010 DTaP/Tdap/Td Vaccines (1 - Tdap) DTaP/Tdap/Td Vaccines (1 - Tdap) [facility] Start: 2009 PAP TESTING PAP TESTING [facility] Start: 2009 Screening for malignant neoplasm of cervix [facility] Start: 12-18-2007 DTaP/Tdap/Td vaccine (1 - Tdap) DTaP/Tdap/Td vaccine (1 - Tdap) [facility] Start: 12-18-2007 Pneumococcal vaccination Pneumococcal Vaccine (1 of 2 - PCV) [facility] Start: 12-18-2007 Urine microalbumin profile [facility] Start: 2006 ANNUAL PCP TEAM CHRONIC DISEASE VISIT ANNUAL PCP TEAM CHRONIC DISEASE VISIT [facility] Start: 2006 BP CONTROLLED (<130/80) BP CONTROLLED (<130/80) [facility] Start: 2006 HEPATITIS C SCREENING HEPATITIS C SCREENING [facility] Start: 2006 Hepatitis C screening [facility] Start: 2006 HIV SCREENING HIV SCREENING [facility] Start: 2006 HIV screening HIV Screening [facility] Start: 2004 COVID-19 Vaccine (1) COVID-19 Vaccine (1) [facility] Work Phone: Start: 12-18-2003 HIV screening HIV screen [facility] Start: 2001 Varicella vaccination Varicella Vaccines (1 of 2 - 13+ 2-dose series) [facility] Start: 2000 Adult depression screening assessment DEPRESSION SCREENING [facility] Start: 2000 COVID-19 Vaccine (1) COVID-19 Vaccine (1) [facility] Work [facility]: Start: 2000 Depression Monitoring Depression Monitoring [facility] [employer] [facility] Start: 12-10-2000 Hepatitis B Vaccine (2 of 3 - 3-dose series) Hepatitis B Vaccine (2 of 3 - 3-dose series) [facility] Start: 12-10-2000 Hepatitis B Vaccines (2 of 3 - 3-dose series) Hepatitis B Vaccines (2 of 3 - 3-dose series) [facility] Start: 1994 PNEUMOCOCCAL (1 - PCV) PNEUMOCOCCAL (1 - PCV) [facility] Start: 1994 Pneumococcal 0-64 years Vaccine (1 - PCV) Pneumococcal 0-64 years Vaccine (1 - PCV) [facility] Start: 1994 Pneumococcal vaccination [facility] Start: 1994 Pneumococcal Vaccine: Pediatrics (0 to 5 Years) and At-Risk Patients (6 to 64 Years) (1 of 2 - PCV) Pneumococcal Vaccine: Pediatrics (0 to 5 Years) and At-Risk Patients (6 to 64 Years) (1 of 2 - PCV) [facility] Start: 1989 Varicella vaccine (1 of 2 - 2-dose childhood series) Varicella vaccine (1 of 2 - 2-dose childhood series) [facility] Start: 1988 HEPATITIS B (1 of 3 - 3-dose series) HEPATITIS B (1 of 3 - 3-dose series) [facility] Start: 1988 Hepatitis B Vaccine (1 of 3 - 3-dose series) Hepatitis B Vaccine (1 of 3 - 3-dose series) [facility] Start: 1988 Hepatitis C screening Hepatitis C screen [facility] [place], [place] Start: 1988 HIV screening HIV Screening [facility] Start: 1988 Lipid panel Lipid Panel [facility] Start: 1988 Medicare Annual Wellness Visit Medicare Annual Wellness Visit (AWV) [facility] Bacteria identified in Unspecified specimen by Aerobe culture [facility] Work Phone: Bacteria identified in Unspecified specimen by Anaerobe culture [facility] Work Phone: Basic Metabolic Pane l w/ Reflex to MG Basic Metabolic Panel w/ Reflex to MG Lab Routine Daily until discontinued starting 02/01/2021, 1 completed [employer] Work Phone: Comment on above: Daily until discontinued starting 2020, 1 completed End: 09-18-2023 Blood glucose - POCT Blood glucose - POCT Point of Care Testing Routine One Time for 1 Occurrences starting 09/18/2023 until 09/18/2023 [facility] 9+ [employer] Comment on above: One Time for 1 Occurrences starting 01/2024 until 09/18/2023 CANNABINOID CONF, UR CANNABINOID CONF, UR Lab Routine Panic disorder 01/04/2024 10:20 AM EDT [facility] Cell count, cerebrospinal fluid [facility] Work Phone: Cerebrospinal fluid examination [facility] Work Phone: Continuous pulse oximetry Pulse oximetry, continuous Respiratory Care Routine Every 4hr until discontinued starting 01/07/2021 [employer] Work Phone: Comment on above: Every 4hr until discontinued starting End: 10-26-2020 COVID-19 COVID-19 Lab Routine Preoperative testing 1 Occurrences starting 10/26/2020 until 10/26/2020 [employer] Work Phone: Comment on above: 1 Occurrences starting 10/26/2020 until 10/26/2020 COVID-19 [employer] Work Phone: End: 01-03-2021 COVID-19 COVID-19 Lab Routine Preop testing 1 Occurrences starting 01/03/2021 until 01/03/2021 [employer] Work Phone: Comment on above: 1 Occurrences starting 01/03/2021 until 01/03/2021 DBT Breast - bilater al diagnostic for implant LINDA DIAG W AV BILATERAL Radiology Routine Mass of upper outer quadrant of left breast 07/04/2024 11:59 AM EDT [facility] Work Phone: ECG COMPLETE ECG COMPLETE ECG Routine Chest pain, unspecified type Palpitations Ordered: 07/01/2024 [facility] Work Phone: Comment on above: Ordered: 07/01/2024 Evaluation of cerebrospinal fluid [facility] Work Phone: Fluid sample volume measurement [facility] Work Phone: Glucose [Mass/volume ] in Cerebral spinal fluid [facility] Work Phone: End: 09-18-2023 INITIATE PACU OXYGEN THERAPY PROTOCOL Initiate PACU Oxygen Therapy Protocol Respiratory Care Routine Continuous until discontinued starting 09/18/2023 [facility] Comment on above: Continuous until discontinued starting 0 09/18/2023 Meningitis+Encephali ti s pathogens DNA and RNA panel - Cerebral spinal fluid by JOSÉ MIGUEL with non-probe detection [facility] Work Phone: Microscopic observation [Identifier] in Unspecified specimen by Gram stain [facility] Work Phone: End: 08-03-2025 MR Breast - bilateral WO and W contrast IV MRI BREAST WO/W IVCON BILATERAL Radiology Routine Mass of upper outer quadrant of left breast Fibrocystic breast changes of both breasts Mastodynia Inversion of left nipple Bloody discharge from left nipple Nipple discharge 1 Occurrences starting 07/04/2024 until 08/03/2025 [facility] Work Phone: Comment on above: 1 Occurrences starting 07/04/2024 until 08/03/2025 End: 04-07-2025 MR Breast - left WO and W contrast IV MRI BREAST BX WO/W IVCON LEFT Radiology Routine Mass of upper outer quadrant of left breast 1 Occurrences starting 03/08/2024 until 04/07/2025 [facility] Work Phone: Comment on above: 1 Occurrences starting 03/08/2024 until 04/07/2025 End: 12-20-2023 Mra head w/o & w/contrast material MRV BRAIN WO/W IVCON Radiology Routine Idiopathic intracranial hypertension 1 Occurrences starting 11/20/2022 until 12/20/2023 [facility] Work Phone: Comment on above: 1 Occurrences starting 11/20/2022 until 12/20/2023 Nebulizer therapy HHN Treatment Respiratory Care Routine TID until discontinued starting 01/07/2021 [employer] Work Phone: Comment on above: TID until discontinued starting 01/08/20 21 Nucleated cells [#/volume] in Cerebral spinal fluid by Manual count [facility] Work Phone: Oxygen therapy [Minimum Data Set] [facility] Comment on above: Daily until discontinued starting 2020 Daily until disconti nued starting 01/07/2021 Daily until disconti nued starting 01/31/2021 Oxygen therapy [Minimum Data Set] Initiate Oxygen Therapy Protocol Respiratory Care Routine As Needed until discontinued starting 09/18/2023 [facility] Work Phone: Comment on above: As Needed until discontinued starting Patient Education [facility] Work Phone: Patient referral [facility] Work Phone: Phase I & II - meter ed glucose Phase I & II - metered glucose Point of Care Testing Routine As Needed until discontinued starting 09/28/2020 [facility] Comment on above: As Needed until discontinued starting End: 09-28-2020 , urine POCT , urine POCT Point of Care Testing Routine One Time for 1 Occurrences starting 09/28/2020 until 09/28/2020 [facility] on above: One Time for 1 Occurrences starting 09/14 until 09/28/2020 End: 09-18-2023 , urine POCT , urine POCT Point of Care Testing Routine One Time for 1 Occurrences starting 09/18/2023 until 09/18/2023 [facility] [employer] [facility] Comment on above: One Time for 1 Occurrences starting 01/2024 until 09/18/2023 Protein [Mass/volume ] in Cerebral spinal fluid [facility] Work Phone: Red blood cell count [facility] Work Phone: SPECIMEN VALIDITY, URINE SPECIMEN VALIDITY, URINE Lab Routine Panic disorder 01/04/2024 10:20 AM EDT [facility] Spirometry panel Incentive pete metry Respiratory Care Routine Every 2hr while awake until discontinued starting 01/07/2021 [facility] Work Phone: Comment on above: Every 2hr while awake until discontinued starting 01/07/2021 Surgical Pathology Surgical Path ology Lab Routine Release Upon Ordering for 1 Occurrences starting 09/28/2020 [facility] [place], [place] Comment on above: Release Upon Ordering for 1 Occurrences starting 09/28/2020 SURGICAL PATHOLOGY [facility] Work Phone: Comment on above: Release Upon Ordering for 1 Occurrences starting 07/11/2024, 1 completed US Breast - left limited US BREAST LTD LEFT Radiology Routine Mass of upper outer quadrant of left breast 07/04/2024 12:13 PM EDT [facility] Immunizations Immunization Date Immunization Notes Care Provider Fa cility 04-29-2021 SARS-CoV-2 (COVID-19 ) mRNA BNT-162b2 vax Aimee Walker [facility] 04-08-2021 SARS-CoV-2 (COVID-19 ) mRNA BNT-162b2 vax Aimee Walker [facility] 07-23-2020 influenza virus vaccine, unspecified formulation Eileen Alvarez MD Work Phone: [facility] 07-09-2020 influenza nasal, unspecified formulation Elia Baires DO Work Phone: [facility] 07-09-2020 influenza virus vaccine, unspecified formulation Aimee Walker [facility] 07-09-2020 influenza, injectable, quadrivalent, preservative free Elia Baires DO Work Phone: [facility] 11-12-2000 hepatitis B vaccine, pediatric or pediatric/adolescent dosage Elia Baires DO Work Phone: [facility] 11-12-2000 measles, mumps and rubella virus vaccine Elia Baires DO Work Phone: [facility] NEGATED: Highlighted row has not occurred!07-21-2022 influenza virus vaccine, unspecified formulation Aimee Aaron [facility] Payers Date Payer Category Payer Unknown 2023 Medicare (Managed Care) [employer] [id number] 2023 Medicare [id number] 2021 Medicaid MEDICAID [facility] MEDICAID [id number] 2021-Present [phone] [address] [place] [address] Medicaid [id number] 2021 Medicaid [id number]. [id number] 2021 Medicare [employer]NA MEDICARE [employer] MEDICARE PPO [id number] 2021-Present [phone] [address] [address] [place] [address] PPO [id number]. [id number] 2021 Medicare [id number]. 1.13.159.2. [id number] 2020 Medicare [id number] 1.2.840.725168.1.13.239.2. 7.3.291845.315 1988 Unknown [id number] 2.16.840.1.653814.3.579.2. 732 1988 Unknown [id number] 2.16.840.1.447254.3.579.2. 177 1988 Unknown [id number] 2.16.840.1.967581.3.579.2. 356 1988 Unknown [id number] 2.16.840.1.484617.3.579.2. 593 1988 Unknown [id number] 2.16.840.1.222191.3.579.2. 593 1988 Unknown [id number] 2.16.840.1.398798.3.579.2. 593 1988 Unknown [id number] 2.16.840.1.615364.3.579.2. 593 1988 Unknown [id number] 2.16.840.1.452482.3.579.2. 593 1988 Unknown [id number] 2.16.840.1.060440.3.579.2. 593 1988 Unknown [id number] 2.16.840.1.899474.3.579.2. 593 1988 Unknown [id number] 2.16.840.1.070634.3.579.2. 593 1988 Unknown [id number] 2.16.840.1.983616.3.579.2. 593 1988 Unknown [id number] 2.16.840.1.823721.3.579.2. 593 1988 Unknown [id number] 2.16.840.1.387351.3.579.2. 593 1988 Unknown [id number] 2.16.840.1.004755.3.579.2. 173 1988 Unknown [id number] 2.16.840.1.440542.3.579.2. 173 1988 Unknown [id number] 2.16.840.1.126072.3.579.2. 174 1988 Unknown [id number] 2.16.840.1.123182.3.579.2. 174 1988 Unknown [id number] 2.16.840.1.262716.3.579.2. 174 1988 Unknown [id number] 2.16.840.1.624876.3.579.2. 175 1988 Unknown [id number] 2.16.840.1.941477.3.579.2. 175 1988 Unknown [id number] 2.16.840.1.881252.3.579.2. 727 1988 Unknown [id number] 2.16.840.1.630899.3.579.2. 727 1988 Unknown [id number] 2.16.840.1.454291.3.579.2. 727 1988 Unknown [id number] 2.16.840.1.372578.3.579.2. 727 1988 Unknown [id number] 2.16.840.1.302396.3.579.2. 727 1988 Unknown [id number] 2.16.840.1.507718.3.579.2. 727 1988 Unknown [id number] 2.16.840.1.428036.3.579.2. 1244 1959 Medicaid [id number] 1.2.840.126342.1.13.239.2. 7.3.677537.315 1959 Private Health Insurance [id number] 1959 Self-pay [id number] Medicare Medicare [id number] Private Health Insurance [employer] MCR PFFS M [id number] Unknown [id number] 2.16.840.1.772773.3.579.2. 531 Unknown [id number] 2.16.840.1.366734.3.579.2. 531 Unknown [id number] 2.16.840.1.343170.3.579.2. 531 Unknown [id number] 2.16.840.1.181084.3.579.2. 531 Unknown [id number] 2.16.840.1.368417.3.579.2. 531 Unknown [id number] 2.16.840.1.995699.3.579.2. 531 Unknown [id number] 2.16.840.1.352203.3.579.2. 531 Social History Date Type Detail Facility Start: 09-28-2020 End: 01-29-2022 Tobacco smoking status NHIS Former smoker [place] Start: 08-12-2022 End: 12-31-2023 History of tobacco use Current smoker [place] Start: 09-28-2020 End: 07-01-2024 Tobacco use and exposure Never used [facility] [place] Start: 09-28-2020 End: 07-25-2024 Alcohol intake Current drinker of alcohol (finding) [place] Start: 09-28-2020 End: 07-03-2022 History SDOH Alcohol Frequency 1 [place] Start: 09-28-2020 [facility]: 1990 Sex Assigned At Not on file [facility] [employer] [facility] Start: 12-16-2021 End: 08-08-2024 Exposure to SARS-CoV-2 (event) Not sure [employer] [facility] End: 03-14-2020 History of tobacco use Cigarette Smoker [facility] Phone: Start: 09-28-2020 Alcohol Comment brien [facility] Work Phone: Start: 12-26-2021 End: 07-01-2024 Tobacco smoking status NHIS Smokes tobacco daily [facility] Start: 12-26-2021 End: 02-27-2023 Cigarettes smoked current (pack per day) - Reported 1 [facility] Start: 03-18-2010 History SDOH Alcohol Comment beer and wine once a month [facility] Start: 07-01-2021 End: 11-03-2022 Tobacco smoking status Heavy tobacco smoker (finding) [facility] Tobacco smoking status Never [facility] Start: 07-03-2022 End: 02-27-2023 Sex Assigned At Female [facility] Start: 1990 Sex Assigned At Female [facility] Start: 07-03-2022 History SDOH Alcohol Frequency 5 [facility] Start: 07-03-2022 History SDOH Alcohol Std Drinks 4 [facility] Start: 07-03-2022 History SDOH Social Connections Get Together 2 [facility] Start: 07-03-2022 History SDOH Social Connections Living 3 [facility] Do you belong to any clubs or organizations such as pentecostal groups, unions, fraternal or athletic groups, or school groups? No [facility] Are you now , , , , never or living with a partner? [facility] How often to you hav e a drink containing alcohol? 4 or more times a week [facility] How many standard dr inks containing alcohol do you have on a typical day? 7 to 9 [facility] How often do you hav e 6 or more drinks on 1 occasion? Daily or almost daily [facility] How hard is it for y ou to pay for the very basics like food, housing, medical care, and heating Not very hard [facility] Do you feel stress - tense, restless, nervous, or anxious, or unable to sleep at night because your mind is troubled all the time - these days [OSQ] To some extent [facility] (I/We) worried iqra er (my/our) food would run out before (I/we) got money to buy more. Sometimes true [facility] The food that (I/we) bought just didn't last, and (I/we) didn't have money to get more. Never true [facility] Start: 01-13-2022 Gender identity Identifies as female gender (finding) [facility] Start: 02-06-2022 Sexual orientation Heterosexual (finding) [facility] How often to you hav e a drink containing alcohol? Never [facility] Start: 12-10-2023 Tobacco smoking status NHIS Never smoked tobacco (finding) [facility] Do you feel stress - tense, restless, nervous, or anxious, or unable to sleep at night because your mind is troubled all the time - these days [OSQ] Only a little [facility] Start: 07-04-2024 Alcohol Comment 13 days sober- 07/04/2024 [facility] Start: 08-08-2024 Alcoholic beverage intake Lifetime non-drinker (finding) [facility] Work Phone: Medical Equipment Procedure Code Equipment Code Equipment Origin al Text Equipment Identifier Dates Breast Us Core B x Clip [id number] Start: 07-11-2024 Comment on above: Description: Ribbon clip Functional Status Date Assessment Result Facility 03-08-2024 Functional Status N/A [facility] 07-02-2023 Functional Status N/A [facility] 01-15-2023 Functional Status N/A [facility] 11-21-2022 Functional Status No [facility] 11-03-2022 Functional Status N/A [facility] 09-24-2022 Functional Status N/A [facility] 08-22-2022 Functional Status N/A [facility] 08-18-2022 Functional Status N/A [facility] 08-12-2022 Functional status Patient at Baseline [facility] Work Phone: 08-08-2022 Functional Status N/A [facility] 07-21-2022 Functional Status N/A [facility] 04-21-2022 Functional Status N/A [facility] 04-20-2022 Functional Status N/A [facility] 04-03-2022 Functional Status N/A [facility] Mental Status Date Assessment Result Facility 08-12-2022 Cognitive function Cognitive Sta tus Patient at Baseline [facility] Work Phone: Clinical Notes 12-24-2020 to 09-05-2024 Telephone Encounter - Hilda Lemos RN - 09/05/2024 10:07 AM ESTTelephone Encounter - Hilda Lemos RN - 09/05/2024 10:07 AM Mary Jo Do RN - 08/25/2024 2:56 PM ESTPatient Instructions Note Date & Type Note Facility 09-05-2024 Telephone encounter Note S- patient asked PCP to review labs B- recent ER visit 08/27/24 A- uploaded care everywhere. ER follow up phone call. R- Follow up scheduled 09/13 At [facility]. Lipase [facility] at [place] [facility] about [employer] [place] reports. Patient will screenshot and send her lab work from the other hospitals in a [employer] message CALL FOR ER FOLLOW UP: On this date and time, Shazia was seen at 08/27/[address] [facility] 08/22/24 at [facility] How is patient doing now? Lipase [address] at [place] Con[facility] about [employer] and [place] reports. Patient will screenshot and send her lab work from the other hospitals in a MC message I'm extremely tired, my left leg hurts from hip to knee. I have diarrhea and vomiting (I don't bring anything up because of my gastric bypass surgery but its the same violent feeling of vomiting), which I get a lot and I don't know why. I have chest pains and I check my BP regurlarly - it was 113/95- and my HR was in the 80s. I've had low grade fevers. My pulse ox is always 100% but I just feel like I have to sigh a lot. Like I can't get a deep breath and I don't understand why. I have to catch my breath while I'm talking. I quit drinking 3 months ago because I know I've got a problem with alcohol. I have had 3 isolated drinks in the last three months. I keep going to the ER and they just tell me it's anxiety. Advised patient that for chest pain and SOB go to the ER. ER Follow up 09/13 with Rayne Macias CNP. DX/Clinical Impression: updated care everywhere. RX: none Hilda KHALIL drum carrier of Dr. Carson [facility] [address] [place] [address] phone [phone] fax [facility] 09-05-2024 Miscellaneous Notes S- patient asked PCP to review labs B- recent ER visit 08/27/24 A- uploaded care everywhere. ER follow up phone call. R- Follow up scheduled 09/13 At [facility]. Lipase 271 at [place] [facility] about [employer] [place] reports. Patient will screenshot and send her lab work from the other hospitals in a message CALL FOR ER FOLLOW UP: On this date and time, Shazia was seen at 08/27/[address] [facility] 08/22/24 at [facility] How is patient doing now? Lipase 271 at [place] [facility] about [employer] [place] reports. Patient will screenshot and send her lab work from the other hospitals in a message I'm extremely tired, my left leg hurts from hip to knee. I have diarrhea and vomiting (I don't bring anything up because of my gastric bypass surgery but its the same violent feeling of vomiting), which I get a lot and I don't know why. I have chest pains and I check my BP regurlarly - it was 113/95- and my HR was in the 80s. I've had low grade fevers. My pulse ox is always 100% but I just feel like I have to sigh a lot. Like I can't get a deep breath and I don't understand why. I have to catch my breath while I'm talking. I quit drinking 3 months ago because I know I've got a problem with alcohol. I have had 3 isolated drinks in the last three months. I keep going to the ER and they just tell me it's anxiety. Advised patient that for chest pain and SOB go to the ER. ER Follow up 09/13 with Rayne Macias CNP. DX/Clinical Impression: updated care everywhere. RX: none Hilda KHALIL drum carrier of Dr. Carson [facility] [address] [place] [address] phone [phone] fax documented in this encounter [facility] 08-25-2024 Note HNO ID: [id number] Author: MARY JO TRINIDAD RN Service: ? Author Type: Registered Nurse Type: Progress Notes Filed: 08/25/2024 15:00 Note Text: ACM EDYTA RN Patient identified by name and date of . Reason for review or outreach: Chart Review Edyta Priority Emergency Department Utilization REQUESTED ACTION/FYI: None Exclusion Criteria - leave appropriate response and delete the rest Does not meet exclusion criteria Utilization in past 6 months: # Occurrences Date Last Occurrence Hospital Admission 0 Not applicable Hospital Observation 0 Not applicable ED 9 08-22-24 SNF / Acute Rehab / LTAC 0 Not applicable Chart reviewed by colleague 05-30-24. ED DIAGNOSES/REASON(S) FOR ED USE: Chart updated x 3 via Care Everywhere. Unable to determine where the ED encounters below took place or what Ms. Chou was seen for. 06-12-24 07-02-24 07-22-24 08-15-24 08-22-24 OTHER FINDINGS/SUMMARY: None Patient Attributed To: QAE Payer: Mauricio HAMMOND Action Taken: No action needed. Contact made with patient: No, Chart review only. Signature: Mary Jo Trinidad RN [facility] 08-25-2024 History of Present illness Narrative ACM EDYTA RN Patient identified by name and date of . Reason for review or outreach: Chart Review Edyta Priority Emergency Department Utilization REQUESTED ACTION/FYI: None Exclusion Criteria - leave appropriate response and delete the rest Does not meet exclusion criteria Utilization in past 6 months: # Occurrences Date Last Occurrence Hospital Admission 0 Not applicable Hospital Observation 0 Not applicable ED 9 08-22-24 SNF / Acute Rehab / LTAC 0 Not applicable Chart reviewed by colleague 05-30-24. ED DIAGNOSES/REASON(S) FOR ED USE: Chart updated x 3 via Care Everywhere. Unable to determine where the ED encounters below took place or what Ms. Chou was seen for. 06-12-24 07-02-24 07-22-24 08-15-24 08-22-24 OTHER FINDINGS/SUMMARY: None Patient Attributed To: QAE Payer: Mauricio [place] Action Taken: No action needed. Contact made with patient: No, Chart review only. Signature: Mary Jo Trinidad RN documented in this encounter [facility] 08-25-2024 Note Patient Outreach ([facility] CASSIASHAZIA MALDONADO ([id number]) 1990 F Date Time Provider Department 08/25/24 MARY JO TRINIDAD [facility] During your visit today, we recorded the following information about you: Mary Jo Trinidad, RN 08/25/2024 3:00 PM Signed ACM EDYTA RN Patient identified by name and date of . Reason for review or outreach: Chart Review Edyta Priority Emergency Department Utilization REQUESTED ACTION/FYI: None Exclusion Criteria - leave appropriate response and delete the rest Does not meet exclusion criteria Utilization in past 6 months: # Occurrences Date Last Occurrence Hospital Admission 0 Not applicable Hospital Observation 0 Not applicable ED 9 08-22-24 SNF / Acute Rehab / LTAC 0 Not applicable Chart reviewed by colleague 05-30-24. ED DIAGNOSES/REASON(S) FOR ED USE: Chart updated x 3 via Care Everywhere. Unable to determine where the ED encounters below took place or what Ms. Chou was seen for. 06-12-24 07-02-24 07-22-24 08-15-24 08-22-24 OTHER FINDINGS/SUMMARY: None Patient Attributed To: QAE Payer: Mauricio HAMMOND Action Taken: No action needed. Contact made with patient: No, Chart review only. Signature: Mary Jo Trinidad RN Allergies As of Date: 08/25/2024 Noted Allergy Reaction ARIPIPRAZOLE 08/19/2022 1 - Mental Status Change 14 - Other: See Comments 16 - Unknown BUPROPION 07/16/2021 16 - Unknown COCONUT 11/20/2022 7 - Swelling Date Reviewed: 07/25/2024 Reviewed by: Yvonne Hester LPN - Fully Assessed Reason for Visit: ACM EDYTA RN [[id number]] Cmt: ED Utilization Review per request of payor Prescriptions as of 08/25/2024 - lamoTRIgine (LAMICTAL) 25 mg tablet Take 2 tablets by mouth two times a day. - ondansetron orally disintegrating (ZOFRAN ODT) 4 mg disintegrating tablet Take 1 tablet by mouth every 8 hours as needed for nausea/vomiting. - varenicline (CHANTIX) 0.5 mg (11)- 1 mg (42) tablet Take 0.5 mg by mouth once daily on Days 1 through 3, THEN 0.5 mg twice daily on Days 4 through 7, THEN 1 mg twice daily on Day 8 and thereafter - DULoxetine (CYMBALTA) 60 mg capsule Take 1 capsule by mouth two times a day. - traZODone (DESYREL) 50 mg tablet Take 50 mg by mouth daily at bedtime. - szgutcnhhtxw-ata-mkge-FA-vit K (BARIATRIC MULTIVITAMINS) 45 mg iron- 800 mcg-120 mcg cap Take by mouth. Problem List As Of Date 08/25/2024 Noted Resolved Poor growth, affecting management of [...] Panic disorder [F41.0] 03/08/2024 Encounter Status:Closed by MARY JO TRINIDAD on 08/25/24 [facility] 08-18-2024 Evaluation + Plan note Diagnostic Tests PendingEBV Antibody Profile 08/18/24Epstein Teixeira Ab Early Antigen 08/18/24 [facility] 08-17-2024 Telephone encounter Note The following approved medication requests have been transmitted electronically. Requested Prescriptions Pending Prescriptions Disp Refills lamoTRIgine (LAMICTAL) 25 mg tablet [Pharmacy Med Name: LAMOTRIGINE 25 MG TABLET] 360 tablet 0 Sig: Take 2 tablets by mouth two times a day. Tevin Carson DO [facility] 08-17-2024 Miscellaneous Notes The following approved medication requests have been transmitted electronically. Requested Prescriptions Pending Prescriptions Disp Refills lamoTRIgine (LAMICTAL) 25 mg tablet [Pharmacy Med Name: LAMOTRIGINE 25 MG TABLET] 360 tablet 0 Sig: Take 2 tablets by mouth two times a day. Tevin Carson DO Pt last seen 07/25/24. Pharmacy electronically requesting refills as follows: Requested Prescriptions Pending Prescriptions Disp Refills lamoTRIgine (LAMICTAL) 25 mg tablet [Pharmacy Med Name: LAMOTRIGINE 25 MG TABLET] 360 tablet 1 Sig: TAKE 2 TABLETS BY MOUTH TWICE A DAY Please review and advise. Jacinda Arreola MA, documented in this encounter [facility] 08-17-2024 Telephone encounter Note Pt last seen 07/25/24. Pharmacy electronically requesting refills as follows: Requested Prescriptions Pending Prescriptions Disp Refills lamoTRIgine (LAMICTAL) 25 mg tablet [Pharmacy Med Name: LAMOTRIGINE 25 MG TABLET] 360 tablet 1 Sig: TAKE 2 TABLETS BY MOUTH TWICE A DAY Please review and advise. Jacinda Arreola MA, [facility] 08-16-2024 Note Normal sinus rhythm at 75 bpm normal intervals abnormal R wave progression cannot exclude previous anterior septal myocardial infarction, 1 ventricular premature beat is noted. Compared to the EKG from 07/01/2024, there was 1 ventricular premature beat noted on the current EKG. [facility] 08-08-2024 History of Present illness Narrative Referred by Dr. Red ref. provider found for No chief complaint on file. History Of Present Illness: Shazia Chou is a 33 y.o. female presenting with concerns about her chest discomfort. She has a very strong family history, mother had her first heart attack at age 39. Father at age 54 of a massive myocardial event great-grandmother in her 50s. She is a mother of 4 kids ages 16 1210 and 8. She used to smoke 1 pack/day, but is trying to cut back. 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 She is status post partial hysterectomy. She has had gastric bypass 3 years ago. She lost 120 pounds. She denies symptoms of GERD. She denies nausea vomiting or diarrhea. Her chest discomfort is described as a tightening/burning sensation that comes and goes, associated with shortness of breath, sometimes associated with diaphoresis. With her chest discomfort both biceps hurt. Symptoms have been gradually escalating. Sometimes she gets it as she is about to fall asleep. She feels that that her heart is off rhythm when she lays on her left side. She also admits to occasional palpitations which she describes as a flip-flopping sensation. Her chest discomfort usually lasts 10 to 15 minutes. Multiple occurrences through the day. With activity she has noticed some shortness of breath as well. Her EKG shows abnormal R wave progression and 1 PVC. 12 point review of systems is negative or noncontributory except as noted.. Past Medical History: Anxiety Pseudotumor cerebri Alcoholism in recovery Depression Bipolar 1 disorder Current everyday smoker History of gastric bypass surgery Echocardiogram July 2022-LVEF 60 to 65% normal diastolic function normal left atrial size normal right atrial size normal RV size and systolic function grossly normal valves no pericardial or pleural effusion IVC normal left atrial diameter 3.4 cm RV systolic pressure 19 mmHg Past Surgical History: She has a past surgical history that includes section, classic; Gastric bypass; Hysterectomy; Ulnar nerve repair (Left); Plantar fascia release (Bilateral); and Foot surgery. Social History: She reports that she has been smoking cigarettes. She has never used smokeless tobacco. She reports that she does not drink alcohol and does not use drugs. Family History: Family History Problem Relation Name Age of Onset Heart attack Mother Hypertension Mother Pancreatic cancer Mother Hypertension Father ALS Father Hypertension Brother Heart attack Maternal Grandfather Coronary artery disease Maternal Grandfather Allergies: Coconut flavor; Coconut oil, hydrogenated; Aripiprazole; Bupropion; and Coconut Outpatient Medications: Current Outpatient Medications Medication Instructions DULoxetine (CYMBALTA) 90 mg lamoTRIgine (LAMICTAL) 50 mg, 2 times daily nyjrocmzukho-fly-govm-FA-vit K (Bariatric Multivitamins) 45 mg iron- 800 mcg-120 mcg capsule Take by mouth. traZODone (DESYREL) 100 mg, Nightly Last Recorded Vitals: Vitals: 08/08/24 1528 08/08/24 1529 BP: 118/82 110/70 BP Location: Left arm Right arm Patient Position: Sitting Sitting Pulse: 75 Weight: 85.3 kg (188 lb) Height: 1.702 m (5' 7 ) Physical Exam: GENERAL APPEARANCE: Well developed, well nourished, in no acute distress. CHEST: Symmetric and non-tender. INTEGUMENT: Skin warm and dry, without gross excoriationis or lesions. HEENT: No gross abnormalities, no jugular venous distention no carotid bruit or scleral icterus NECK: Supple, no JVD, no bruit. Thyroid not palpable. Carotid upstrokes normal. NEURO/PSHCY: Alert and oriented x3; appropriate behavior and responses and responses, with normal balance and coordination LUNGS: Clear to auscultation bilaterally; normal respiratory effort. HEART: Rate and rhythm regular with no evident murmur; no gallop appreciated. There are no rubs, clicks or heaves. ABDOMEN: Soft, nontender, no masses or bruits. MUSCULOSKELETAL: No obvious deformity identified EXTREMITIES: Warm There is no edema noted. PERIPHERAL VASCULAR: Pulses present and equally palpable; 2+ throughout. Labs reviewed today : Laboratory data from November 2023 was reviewed. NEGAR globin 11.2 hematocrit 34.4 MCV 88.7 platelet count 3 31,000 sodium 140 potassium 4 BUN 14 creatinine 0.60 GFR greater than 60 magnesium 1.9 BNP 12 Free T4 0.82 TSH 0.61 hCG negative chest x-ray November 2023 Assessment/Plan 1. Angina pectoris 2. Shortness of breath 3. Palpitations 4. Family history of ischemic heart disease 5. Primary hypertension 6. Current smoker 7. BMI 29.0-29.9,adult Clinical decision makin-year-old mother of 4 children, with present a pattern of chest discomfort and shortness of breath over the past 6 months. EKG abnormal, cannot exclude previous anterior septal myocardial infarction, but no acute abnormality compared to an EKG from June 2024. Several features of her chest discomfort are concerning for angina pectoris. More than anything, her family history is very bothersome. She says she is currently scared. She needs additional workup to include treadmill stress perfusion imaging and echocardiogram. For her palpitations we will start with magnesium oxide 400 mg daily. She understands that if symptoms escalate she needs to seek prompt medical attention. She had already been to the emergency room in [place] for her symptoms. Follow-up after testing Discussed the impact of nicotine. Will continue to address at every visit. She was advised and encouraged to work on nicotine cessation. Provider Attestation - Scribe documentation Scribe Attestation By signing my name below, I, Rita Mcqueen LPN , Scribe attest that this documentation has been prepared under the direction and in the presence of Aleah Howard MD. All medical record entries made by the Scribe were at my direction and personally dictated by me. I have reviewed the chart and agree that the record accurately reflects my personal performance of the history, physical exam, discussion and plan. documented in this encounter [facility] Work Phone: 08-08-2024 Instructions Rita Knowles LPN - 08/08/2024 3:15 PM EST Please bring all medicines, vitamins, and herbal supplements with you when you come to the office. Prescriptions will not be filled unless you are compliant with your follow up appointments or have a follow up appointment scheduled as per instruction of your physician. Refills should be requested at the time of your visit. EKG done in office today BMI was above normal measurement. Current weight: 85.3 kg (188 lb) Weight change since last visit (-) denotes wt loss 188 lbs Weight loss needed to achieve BMI 25: 28.7 Lbs Weight loss needed to achieve BMI 30: -3.1 Lbs Provided instructions on dietary changes Provided instructions on exercise. documented in this encounter [facility] Work Phone: 07-25-2024 Note HNO ID: [id number] Author: TEVIN CARSON, DO Service: ? Author Type: Physician Type: Progress Notes Filed: 07/25/2024 16:57 Note Text: [facility] Medicine Visit Assessment and Plan 1. Bipolar affective disorder in remission (HCC) - ICD9: 296.80, ICD10: F31.70 (primary diagnosis) 2. Borderline personality disorder (HCC) - ICD9: 301.83, ICD10: F60.3 3. Anxiety disorder, unspecified type - ICD9: 300.00, ICD10: F41.9 -Patient with significantly worsening mood, depression mainly, changing psychiatrist and set to be seen end of next month. She does not have any active SI/HI, but does report that there are many days when she wishes that something natural were to happen that would take her pain away. She overall has supportive factors including family, children and overall at the moment I do not think she would benefit from inpatient hospitalization. -I discussed with her that she ultimately needs to get into see psychiatry, but until she can see them, I can increase her Lamictal from 75 to 100 mg to see if this provides her any benefit. We will plan to follow-up in the next 3 to 4 weeks to reassess and can consider further medication titration until she is seen by psychiatry. She is to call 911 or go to the hospital if she is to have worsening depressive symptoms and is understanding of this. - LAMOTRIGINE 25 MG TABLET 4. Chest pain, unspecified type - ICD9: 786.50, ICD10: R07.9 -Previously seen for this pain, still ongoing and is set to see cardiology. Overall do not feel that this is cardiac related, but does have strong family history and with persistence of symptoms, do feel a cardiology evaluation/stress testing is warranted. She is to go to ED if she is to have persistent chest pressure that does not go away, changing of symptoms, radiation of symptoms, or accompanying shortness of breath/nausea/lightheadedness/arm pain. 5. Iron deficiency anemia, unspecified iron deficiency anemia type - ICD9: 280.9, ICD10: D50.9 -She is due for blood work from her last appointment, in addition to this it was noted on review that she was significantly iron deficient and we will recheck iron stores and blood counts at this time. 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 Has also cut down on smoking, less than 1 pack/day at this time. She is happy about this as she has been saving money. Was in ED this past Thursday due to worsening mood. She feels very down, depressed. She is very adamant that she does not want to hurt herself and that she would never hurt herself, but notes that there have been more days lately that she had wished that she had some type of illness because of how bad her depression is at the moment. She is working to find a psychiatrist and has an appointment with 1 next month. Her current regimen of medication includes duloxetine 60 mg twice daily, Lamictal 75 mg daily, trazodone 50 mg at bedtime. She is scheduled to see a therapist tomorrow for DBT, she is already done the intake appointment and is looking forward to the actual therapy sessions. She does report that she continues to experience the chest discomfort she had complained of at her last appointment. She is scheduled to see a hand tool filer at for this. ROS: As per HPI. Objective BP 122/72 Pulse 67 Wt 83.8 kg (184 lb 11.9 oz) LMP 10/23/2022 SpO2 100% BMI 28.94 kg/m? Physical Exam Constitutional: Appearance: Normal appearance. Cardiovascular: Rate and Rhythm: Normal rate and regular rhythm. Pulmonary: Effort: Pulmonary effort is normal. Breath sounds: Normal breath sounds. Abdominal: General: Abdomen is flat. Palpations: Abdomen is soft. Musculoskeletal: Cervical back: Normal range of motion and neck supple. Right lower leg: No edema. Left lower leg: No edema. Skin: General: Skin is warm and dry. Capillary Refill: Capillary refill takes less than 2 seconds. Neurological: General: No focal deficit present. Mental Status: She is alert and oriented to person, place, and time. Psychiatric: Mood and Affect: Mood normal. Behavior: Behavior normal. [facility] 07-25-2024 History of Present illness Narrative [facility] Visit Assessment and Plan 1. Bipolar affective disorder in remission (HCC) - ICD9: 296.80, ICD10: F31.70 (primary diagnosis) 2. Borderline personality disorder (HCC) - ICD9: 301.83, ICD10: F60.3 3. Anxiety disorder, unspecified type - ICD9: 300.00, ICD10: F41.9 -Patient with significantly worsening mood, depression mainly, changing psychiatrist and set to be seen end of next month. She does not have any active SI/HI, but does report that there are many days when she wishes that something natural were to happen that would take her pain away. She overall has supportive factors including family, children and overall at the moment I do not think she would benefit from inpatient hospitalization. -I discussed with her that she ultimately needs to get into see psychiatry, but until she can see them, I can increase her Lamictal from 75 to 100 mg to see if this provides her any benefit. We will plan to follow-up in the next 3 to 4 weeks to reassess and can consider further medication titration until she is seen by psychiatry. She is to call 911 or go to the hospital if she is to have worsening depressive symptoms and is understanding of this. - LAMOTRIGINE 25 MG TABLET 4. Chest pain, unspecified type - ICD9: 786.50, ICD10: R07.9 -Previously seen for this pain, still ongoing and is set to see cardiology. Overall do not feel that this is cardiac related, but does have strong family history and with persistence of symptoms, do feel a cardiology evaluation/stress testing is warranted. She is to go to ED if she is to have persistent chest pressure that does not go away, changing of symptoms, radiation of symptoms, or accompanying shortness of breath/nausea/lightheadedness/arm pain. 5. Iron deficiency anemia, unspecified iron deficiency anemia type - ICD9: 280.9, ICD10: D50.9 -She is due for blood work from her last appointment, in addition to this it was noted on review that she was significantly iron deficient and we will recheck iron stores and blood counts at this time. - FERRITIN - IRON AND TIBC - COMPLETE BLOOD COUNT AND DIFFERENTIAL Tevin Carson DO 07/25/2024 Subjective This is a 33 year old female with history of Anxiety, Bipolar 1 disorder, Borderline PD who presents due to worsening symptoms Currently 34 days sober, no desire to drink since. Has also cut down on smoking, less than 1 pack/day at this time. She is happy about this as she has been saving money. Was in ED this past Thursday due to worsening mood. She feels very down, depressed. She is very adamant that she does not want to hurt herself and that she would never hurt herself, but notes that there have been more days lately that she had wished that she had some type of illness because of how bad her depression is at the moment. She is working to find a psychiatrist and has an appointment with 1 next month. Her current regimen of medication includes duloxetine 60 mg twice daily, Lamictal 75 mg daily, trazodone 50 mg at bedtime. She is scheduled to see a therapist tomorrow for DBT, she is already done the intake appointment and is looking forward to the actual therapy sessions. She does report that she continues to experience the chest discomfort she had complained of at her last appointment. She is scheduled to see a hand tool filer at for this. ROS: As per HPI. Objective BP 122/72 Pulse 67 Wt 83.8 kg (184 lb 11.9 oz) LMP 10/23/2022 SpO2 100% BMI 28.94 kg/m Physical Exam Constitutional: Appearance: Normal appearance. Cardiovascular: Rate and Rhythm: Normal rate and regular rhythm. Pulmonary: Effort: Pulmonary effort is normal. Breath sounds: Normal breath sounds. Abdominal: General: Abdomen is flat. Palpations: Abdomen is soft. Musculoskeletal: Cervical back: Normal range of motion and neck supple. Right lower leg: No edema. Left lower leg: No edema. Skin: General: Skin is warm and dry. Capillary Refill: Capillary refill takes less than 2 seconds. Neurological: General: No focal deficit present. Mental Status: She is alert and oriented to person, place, and time. Psychiatric: Mood and Affect: Mood normal. Behavior: Behavior normal. documented in this encounter [facility] 07-22-2024 Telephone encounter Note Agree with in office evaluation, needs to go to ED if symptoms worsen Tevin Carson DO [facility] Work Phone: 07-22-2024 Miscellaneous Notes Agree with in office evaluation, needs to go to ED if symptoms worsen Tevin Carson DO Images from the original note were not included. Situation: Triage Call Background: Patient sent [facility] message today C/O depression an anxiety symptoms. H/O bipolar 1, borderline PD and has been sober from alcohol 1 month. Unable to get sooner appt with psychiatrist or therapist. Wants to review meds with provider and make changes if needed. Assessment: Reviewed current meds with patient. None are new. Reason for Disposition MODERATE anxiety (e.g., persistent or frequent anxiety symptoms; interferes with sleep, school, or work) Answer Assessment - Initial Assessment Questions 1. CONCERN: feeling has been creeping on for one month, which is how long patient has been sober from alcohol. 2. ANXIETY SYMPTOMS: My depression has been so bad it feels like a weigh on my chest constantly, and I feel like I'm having anxiety and can't check my breath. I have headaches, pressure in my eyes and always feel like I'm going to cry. I have no intentions of harming or killing myself but I just want to be done. I had a breast biopsy done and I hoped it was cancer. Maybe I'll get into a car wreck or choke while I'm home alone. I have a strong urge to cut myself but I haven't done it. It's my biggest concern. It's how I used to cope. Superficial cuts. This feeling has been creeping up on me in the last month. I dwell on things and overthink everything. I look in the mirror and just hate every little thing about me. 3. ONSET: 1 month since becoming sober from alcohol. 4. SEVERITY: I don't know but it's getting worse. I think I need to change my meds but I have to wait a long time for a psychiatric appointment. 5. FUNCTIONAL IMPAIRMENT: Not sleeping restfully. Waking up a lot, toss/turn. Scratching self in sleep. Talking in sleep. Woke at 3am yesterday and couldn't get back to sleep. 6. HISTORY: BPD, Bipolar 1, alcohol abuse disorder - sober 1 month. 7. RISK OF HARM - SUICIDAL IDEATION: Denies SI. Denies timeline/method for self harm. Identifies protective factors (children, spouse). Denies HI. 8. TREATMENT: Patient has DBT therapist and psychiatrist. Reviewed med regimen with patient, who endorsed compliance with meds. 9. POTENTIAL TRIGGERS: We're going into the holidays and money is very tight. My son is struggling in school (age 10), he's autistic and he's clingy and sleeping in my bed at night. I deleted social media because it was a trigger. 11. PATIENT SUPPORT: spouse and children, DBT therapist and psychiatrist. Patient's previous psychiatrist left the practice and she is unable to get an appointment with a new one until the end of August. 12. OTHER SYMPTOMS: depressed 13. : s/p hyster Protocols used: Anxiety and Panic Pjyqol-RQYAC-LO Request/Response - Patient scheduled for ThursdayJul [address] Carson (20 minutes). Patient is also scheduled for 40 minutes on ThursdayJul [address] Carson. I did not cancel the Thursday appt in case a 40 min follow up would be appropriate. Please advise if needed. documented in this encounter [facility] 07-22-2024 Telephone encounter Note Images from the original note were not included. Situation: Triage Call Background: Patient sent [facility] message today C/O depression an anxiety symptoms. H/O bipolar 1, borderline PD and has been sober from alcohol 1 month. Unable to get sooner appt with psychiatrist or therapist. Wants to review meds with provider and make changes if needed. Assessment: Reviewed current meds with patient. None are new. Reason for Disposition MODERATE anxiety (e.g., persistent or frequent anxiety symptoms; interferes with sleep, school, or work) Answer Assessment - Initial Assessment Questions 1. CONCERN: feeling has been creeping on for one month, which is how long patient has been sober from alcohol. 2. ANXIETY SYMPTOMS: My depression has been so bad it feels like a weigh on my chest constantly, and I feel like I'm having anxiety and can't check my breath. I have headaches, pressure in my eyes and always feel like I'm going to cry. I have no intentions of harming or killing myself but I just want to be done. I had a breast biopsy done and I hoped it was cancer. Maybe I'll get into a car wreck or choke while I'm home alone. I have a strong urge to cut myself but I haven't done it. It's my biggest concern. It's how I used to cope. Superficial cuts. This feeling has been creeping up on me in the last month. I dwell on things and overthink everything. I look in the mirror and just hate every little thing about me. 3. ONSET: 1 month since becoming sober from alcohol. 4. SEVERITY: I don't know but it's getting worse. I think I need to change my meds but I have to wait a long time for a psychiatric appointment. 5. FUNCTIONAL IMPAIRMENT: Not sleeping restfully. Waking up a lot, toss/turn. Scratching self in sleep. Talking in sleep. Woke at 3am yesterday and couldn't get back to sleep. 6. HISTORY: BPD, Bipolar 1, alcohol abuse disorder - sober 1 month. 7. RISK OF HARM - SUICIDAL IDEATION: Denies SI. Denies timeline/method for self harm. Identifies protective factors (children, spouse). Denies HI. 8. TREATMENT: Patient has DBT therapist and psychiatrist. Reviewed med regimen with patient, who endorsed compliance with meds. 9. POTENTIAL TRIGGERS: We're going into the holidays and money is very tight. My son is struggling in school (age 10), he's autistic and he's clingy and sleeping in my bed at night. I deleted social media because it was a trigger. 11. PATIENT SUPPORT: spouse and children, DBT therapist and psychiatrist. Patient's previous psychiatrist left the practice and she is unable to get an appointment with a new one until the end of August. 12. OTHER SYMPTOMS: depressed 13. : s/p hyster Protocols used: Anxiety and Panic [id number] Request/Response - Patient scheduled for ThursdayJul [address] Carson (20 minutes). Patient is also scheduled for 40 minutes on ThursdayJul [address] Carson. I did not cancel the Thursday appt in case a 40 min follow up would be appropriate. Please advise if needed. [facility] 07-22-2024 Telephone encounter Note See nurse triage encounter. [facility] 07-22-2024 Miscellaneous Notes See nurse triage encounter. documented in this encounter [facility] 07-11-2024 Instructions Formatting of th is note might be different from the original. Post procedure written instructions were given to patient. [facility] 07-11-2024 Miscellaneous Notes Post procedure written instructions were given to patient. documented in this encounter [facility] 07-11-2024 Note HNO ID: [id number] Author: EV LINDSEY RT(R) Service: Radiology Author Type: Golf Caddy Type: Patient Education Filed: 07/11/2024 09:29 Note Text: Post procedure written instructions were given to patient. [facility] 07-04-2024 History of Present illness Narrative Radiology Service Progress Note PATIENT NAME: Shazia Chou DATE OF SERVICE: July 04, 2024 TIME: 12:32 PM PATIENT IDENTITY VERIFICATION COMPLETED USING TWO [...] PATIENT PRESENTS WITH AN IMPLANTABLE OR ATTACHED BUSINESS CONTROL SPECIALIST: No RADIOLOGY DEPARTMENT: Mammography PERIPHERAL IV DATA: Not applicable SIGNED BY: Stewart Brewer July 04, 2024 12:32 PM documented in this encounter [facility] 07-04-2024 Note HNO ID: [id number] Author: OMAR SOLIMAN Mammo Tech Service: ? Author Type: Golf Caddy Type: Progress Notes Filed: 07/04/2024 12:32 Note Text: Radiology Service Progress Note PATIENT NAME: Shazia Chou DATE OF SERVICE: July 04, 2024 TIME: 12:32 PM PATIENT IDENTITY VERIFICATION COMPLETED USING TWO [...] PATIENT PRESENTS WITH AN IMPLANTABLE OR ATTACHED BUSINESS CONTROL SPECIALIST: No RADIOLOGY DEPARTMENT: Mammography PERIPHERAL IV DATA: Not applicable SIGNED BY: Stewart Brewer July 04, 2024 12:32 PM [facility] 07-04-2024 Note HNO ID: [id number] Author: FATUMA TYLER APRN.ELEVATOR INSPECTOR Service: ? Author Type: Nurse Practitioner Type: Progress Notes Filed: 07/06/2024 08:25 Note Text: MEDICAL BREAST PATIENT NAME: Shazia Chou July 04, 2024 REFERRAL: She is self referred for an opinion regarding regarding LEFT breast painful lump and bloody nipple discharge HISTORY of PRESENT ILLNESS: Shazia Chou is a 33 year old premenopausal female who presents to the [facility] today for evaluation of left breast lump and incident of bloody left nipple discharge. She reports a long history of concern for left breast lump and couple incidents of bloody nipple discharge. 04/22/22 she was seen at OSH and underwent diagnostic mammogram and ultrasound to assess breast concern with negative findings. MRI of breast was completed 06/10/22 per report was negative for any evidence of malignancy-small moderate area of otherwise unremarkable appearing asymmetric breast tissue was seen in left lateral breast at posterior depth which may account for the palpable area of concern. 12/09/23 she underwent left diagnostic mammogram and ultrasound with negative findings. The lump in left breast has persisted and is tender with palpation. She hasn't noticed any further bloody nipple discharge which she confirms was spontaneous She is aware we do not have her imaging uploaded which may delay final interpretation in her care The patient denies any skin changes. Genetic Testing: No Scheduled 08/05/24-due to FH pancreatic cancer Vitamin D 25 Hydroxy (no units) Date Value 06/20/2009 20.4 Reference range: 31.0 to 80.0 Unit: ng/mL Classification of 25 [place] Vitamin D status: Insufficiency/Moderate Deficiency: < or = 30 ng/mL Sufficiency/Optimal Levels: 31 to 80 ng/mL Toxicity: > 100 ng/mL Test performed by chemiluminescent immunoassay. Performed at [facility],[address] [place] [address] She takes a multivitamin daily. BMD: No PERSONAL BREAST HISTORY: Breast biopsy: No Breast cysts: No Breast surgery: No Breast cancer: No CANCER SURVEILLANCE: Mammograms: Date in [facility]: 12/09/23; results - Negative-Left breast only Breast MRI: Date in [facility]: 06/10/22; results - Negative Colonoscopy: No RISK FACTORS FOR BREAST CANCER: Age at the onset of menses: 12 years of age. P: 3 Age at the of first child: 17 years of age. She breast fed. Age at menopause: The patient is not menopausal at this time. She has had uterus removed with negative pathology (done for adenomyosis), but ovaries remain; Date: 2022 She has had a hysterectomy and does not use control. History of Mantle Radiation prior to the age of 28: No Obesity: -Last 1 Encounter Wt Readings: Date: Wt: 07/01/2024 86.3 kg (190 lb 4.1 oz) -28.98 kg/m2 Mammographic density: The breasts are heterogeneously dense which limits the sensitivity of mammography Personal History of Benign Atypical Breast Biopsy: No Alcohol use: Sober for past 2 weeks PAST MEDICAL HISTORY: Patient specifically denies history of: DVT, PE, migraine headaches without aura, osteopenia, and osteoporosis. 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 There is no family history of melanoma, sarcoma or leukemia. Osteoporosis: None Stroke: Mother Blood Clot: Father Heart attack: Yes on maternal side Thyroid Nodule or Goiter: None Autism: son REVIEW OF SYSTEMS: The patient specifically denies unintentional weight loss, abnormal swelling in the arms or legs, chest pain, shortness of breath, persistant cough, heartburn, urinary incontinence, vaginal dryness, decreased libido or unusual bony pains. + insomnia, hot flashes, night sweats,and severe headaches The sensitive examination was discussed with the Patient or Patient's Authorized Laundromat Manager. As applicable, any other physician, advance practice provider, medical student, or other health professional student that will be observing or involved in (more content not included)... [facility] 07-04-2024 History of Present illness Narrative MEDICAL BREAST PATIENT NAME: Shazia Chou July 04, 2024 REFERRAL: She is self referred for an opinion regarding regarding LEFT breast painful lump and bloody nipple discharge HISTORY of PRESENT ILLNESS: Shazia Chou is a 33 year old premenopausal female who presents to the [facility] today for evaluation of left breast lump and incident of bloody left nipple discharge. She reports a long history of concern for left breast lump and couple incidents of bloody nipple discharge. 04/22/22 she was seen at OSH and underwent diagnostic mammogram and ultrasound to assess breast concern with negative findings. MRI of breast was completed 06/10/22 per report was negative for any evidence of malignancy-small moderate area of otherwise unremarkable appearing asymmetric breast tissue was seen in left lateral breast at posterior depth which may account for the palpable area of concern. 12/09/23 she underwent left diagnostic mammogram and ultrasound with negative findings. The lump in left breast has persisted and is tender with palpation. She hasn't noticed any further bloody nipple discharge which she confirms was spontaneous She is aware we do not have her imaging uploaded which may delay final interpretation in her care The patient denies any skin changes. Genetic Testing: No Scheduled 08/05/24-due to FH pancreatic cancer Vitamin D 25 Hydroxy (no units) Date Value 06/20/2009 20.4 Reference range: 31.0 to 80.0 Unit: ng/mL Classification of 25 [place] Vitamin D status: Insufficiency/Moderate Deficiency: < or = 30 ng/mL Sufficiency/Optimal Levels: 31 to 80 ng/mL Toxicity: > 100 ng/mL Test performed by chemiluminescent immunoassay. Performed at [facility],[address] [place] [address] She takes a multivitamin daily. BMD: No PERSONAL BREAST HISTORY: Breast biopsy: No Breast cysts: No Breast surgery: No Breast cancer: No CANCER SURVEILLANCE: Mammograms: Date in [facility]: 12/09/23; results - Negative-Left breast only Breast MRI: Date in [facility]: 06/10/22; results - Negative Colonoscopy: No RISK FACTORS FOR BREAST CANCER: Age at the onset of menses: 12 years of age. P: 3 Age at the of first child: 17 years of age. She breast fed. Age at menopause: The patient is not menopausal at this time. She has had uterus removed with negative pathology (done for adenomyosis), but ovaries remain; Date: 2022 She has had a hysterectomy and does not use control. History of Mantle Radiation prior to the age of 28: No Obesity: -Last 1 Encounter Wt Readings: Date: Wt: 07/01/2024 86.3 kg (190 lb 4.1 oz) -28.98 kg/m2 Mammographic density: The breasts are heterogeneously dense which limits the sensitivity of mammography Personal History of Benign Atypical Breast Biopsy: No Alcohol use: Sober for past 2 weeks PAST MEDICAL HISTORY: Patient specifically denies history of: DVT, PE, migraine headaches without aura, osteopenia, and osteoporosis. 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 There is no family history of melanoma, sarcoma or leukemia. Osteoporosis: None Stroke: Mother Blood Clot: Father Heart attack: Yes on maternal side Thyroid Nodule or Goiter: None Autism: son REVIEW OF SYSTEMS: The patient specifically denies unintentional weight loss, abnormal swelling in the arms or legs, chest pain, shortness of breath, persistant cough, heartburn, urinary incontinence, vaginal dryness, decreased libido or unusual bony pains. + insomnia, hot flashes, night sweats,and severe headaches The sensitive examination was discussed with the Patient or Patient's Authorized Laundromat Manager. As applicable, any other physician, advance practice provider, medical student, or other health professional student that will be observing or involved in the sensitive examination for educational or training purposes was discussed with the Patient or Authorized Laundromat Manager. The Patient or Authorized Laundromat Manager has agreed to proceed with the sensitive examination. (Sensitive examination includes inspection and/or palpation of the breasts, pelvis, prostate and anorectal regions) PHYSICAL EXAM: Ht 170.2 cm (5' 7 ) Wt 83.9 kg (185 lb) LMP 10/23/2022 BMI 28.98 kg/m General: well-nourished, healthy, white, female, alert and oriented x 3, calm Skin: warm, dry, skin color, texture, turgor normal Head/Eyes: normocephalic, atraumatic, and anicteric Lymph nodes- The supraclavicular, axillary, and cervical regions are free of significant lymphadenopathy. Right breast-The skin, nipple and areola appear normal. There is no skin dimpling with movement of the pectoralis. There is no nipple retraction. No discharge can be elicited. The parenchya is moderately fibrocystic. There is no dominant masses in the breast. The axillary tail is normal. There is no tenderness noted with palpation. R>L Left breast- The skin, nipple, and areola appear normal. There is no skin dimpling with movement of the pectoralis. There is no nipple retraction. No discharge can be elicited. The parenchyma is moderately fibrocystic. At the 1 o'clock position 15 cmfn there is a prominent elongated area of increased fibrocystic change which is moderately tender with palpation-she confirms this is area of concern. The axillary tail is normal. There is no tenderness noted with palpation. IMAGING: Bilateral diagnostic imaging with Left ultrasound was performed today in the breast center and showed The breasts are heterogeneously dense, which may obscure small masses. Finding 1: There is a focal asymmetry in the posterior depth upper outer quadrant of the left breast. The finding is more prominent on the present exam. Focal asymmetry correlates to the area of palpable concern in the left breast. Finding 2: There is a calcified lymph node in the left axilla. Findings 3: No mammographic correlation for reported left bloody discharge. No suspicious masses, calcifications or other abnormalities are seen in the right breast. The breast tissue composition shows a homogeneous background echotexture with scattered areas of fibroglandular densities. Finding 1: Ultrasound demonstrates an oval area measuring 3.3 cm in the posterior depth region of the left breast at 1 o'clock. This area correlates with mammographic finding in reported palpable abnormality. Findings 3, no sonographic correlation for reported left bloody discharge, with no suspicious findings seen. Finding 1: There is a palpable area in the left breast at 1:00 posterior depth, which resembles fibroglandular tissue/PASH. This has increased in size and/more prominent from 2022 exam. Given interval change in reported palpable abnormality, ultrasound-guided biopsy is recommended for further evaluation. Finding 2: Calcified lymph nodes node in the left axilla is benign. Patient has multiple tattoos in both sides, which can explain calcified node. Findings 3: No mammographic or sonographic correlation for reported left bloody discharge. Clinical follow-up is recommended. Breast MRI can be performed for further evaluation as clinical discretion. Patient saw Fatuma Tyler CNP today. BI-RADS Category 4A: Suspicious - Low suspicion for malignancy . Results personally reviewed along with Dr Asif Assessment IMPRESSION/PLAN: Shazia Chou is a 33 year old year old female with Abnormal Mammogram, bilateral fibrocystic change, dense breasts, mastodynia , a breast mass, and nipple discharge There are concerning findings on history imaging physical exam. She will return for core biopsy 07/11/24 to further evaluate.. We discussed that pathologic nipple discharge, that which is spontaneous, from a single duct orifice, and bloody or clear, is usually a sign of a benign intraductal papilloma or benign duct ectasia, but that an underlying malignancy can be found in 5-21% of patients with pathologic nipple discharge who undergo biopsy. The risk of malignancy increases with age. In women under 40, the risk is less than 3%, in women age 40-60, there is a 10% risk and in those over 60, a 32% risk. Diagnostic MRI of breast will be ordered to further assess bloody nipple discharge. The pros and cons of screening MRI have been discussed with the patient including enhanced sensitivity and false positives. The patient is responsible for getting pre-certification from her insurance company and is advised to ask about a deductible or co-pay. This will also allow us to further assess left breast lump Genetics referral made: No: Reason: N/A Chemoprevention discussion: N/A The patient is advised to exercise regularly, achieve/maintain ideal body weight, and to limit alcohol consumption to less than 7 drinks weekly for breast cancer risk reduction and overall health. She will return in 3 months for follow-up evaluation pending MRI of breast. She will call me in the interim should she have any questions or concerns. My final recommendations will be communicated back to the requesting physician by way of shared medical record or letter via US mail. I spent a total of 45 minutes minutes on the date of the service which included preparing to see the patient, [id number] patient care, completing clinical documentation, obtaining and/or reviewing separately obtained history, performing a medically appropriate examination, counseling and educating the patient/family/caregiver, ordering medications, tests, or procedures, and communicating results to the patient/family/caregiver. Fatuma Tyler APRN.[facility] Medical Breast Specialist July 04, 2024 CC: Tevin Carson [id number] [place] [address] documented in this encounter [facility] 07-04-2024 Instructions Naldo Borrego MA - 07/04/2024 10:52 AM EDT Thank you for trusting me with your breast care today. Please call or MyChart in 2-3 months with an update in your symptoms. With any changes in symptoms evaluated today such as worsening, pain, skin redness, warmth, drainage, palpable mass or other breast symptoms. Your Breast Care Team, Fatuma Tyler CNP, Medical Breast Specialist Sofia Shelton RN [phone] ([place]) Nlado Borrego, Insulation Blanket Maker [phone] ([place]) documented in this encounter [facility] 07-01-2024 Tevin Barrientos DO - 07/01/2024 11:41 AM EDT Try an extended release formulation of Melatonin, lowest dosage possible CALL 911 or go to ED for: - Chest pain, pressure, or discomfort in the center of the chest for more than a few minutes. It can also go away and come back again. - This can also feel like heaviness, tightness, pressure, aching, burning, numbness, fullness, or a squeezing feeling. This feeling can be similar to indigestion or heartburn. - You may have pain in your arm(s), shoulder, back, neck, jaw or stomach, trouble breathing or feeling short of breath, sweating or cold sweat , feeling full, indigestion, nausea or vomiting, feeling lightheaded, dizzy, very weak or anxious, and having a fast or irregular heartbeat. Follow up with me in 1 month documented in this encounter [facility] 07-01-2024 Note HNO ID: [id number] Author: TEVIN CARSON DO Service: ? Author Type: Physician Type: Progress Notes Filed: 07/01/2024 12:18 Note Text: [facility] Family Medicine Visit Assessment and Plan 1. Chest pain, unspecified type - ICD9: 786.50, ICD10: R07.9 (primary diagnosis) 2. Palpitations - ICD9: 785.1, ICD10: R00.2 3. Bipolar affective disorder in remission (HCC) - ICD9: 296.80, ICD10: F31.70 4. History of substance abuse (HCC) - ICD9: 305.93, ICD10: F19.11 5. Borderline personality disorder (HCC) - ICD9: 301.83, ICD10: F60.3 Atypical chest pain, symptoms are not consistent with cardiac ischemia due to nonexertional nature of symptom and localization of the pain possible etiology include MSK versus anxiety, especially given recent detox from alcohol. - Electrocardiogram: An ECG today showed normal sinus rhythm with sinus arrhythmia at 73 BPM, WY interval 138 ms, normal QRS, poor quality EKG, but overall normal ST-T segments, QT 360 ms -Given overall normal EKG findings, patient saturating 99% on room air, normal cardiac exam and her being hemodynamically stable, I do not think that this warrants further workup or escalation of care at this time. It is very possible that the symptoms were sequela of recent detox and worsening anxiety. We discussed that if symptoms are to recur and not go away, or be associated with diaphoresis, nausea, radiation of pain, feeling of chest pressure or heaviness, that she should go to the ED. She expressed understanding of this and is agreeable to plan. -We will plan to follow-up in 1 month to review her mood, anxiety, and see how she is sleeping. We can additionally check in on substance abuse and attempt to discuss smoking cessation. Patient is agreeable to this. - ECG COMPLETE 6. Serum calcium elevated - ICD9: 275.42, ICD10: E83.52 -Likely secondary to supplement the patient takes, can recheck and also check PTH and vitamin D. We will review these at follow-up visit. - COMPREHENSIVE METABOLIC PANEL - PTH INTACT - VITAMIN D 25 HYDROXY Tevin Carson, DO 07/01/2024 Subjective Patient is a 33 year old female who presents for est care Reports her anxiety is worsening. She follows with psychiatry and is currently on Lamictal 25 mg, Cymbalta 60 mg, Trazodone 50 mg. She recently entered a detox program for alcohol, was at a facility, but left after 12 hours due to a bad experience and has been detoxing at home on her own. She has been experiencing a multitude of symptoms including chest pain, palpitations, worsening anxiety, insomnia, lightheadedness, blurry vision, and bodyaches. Her blood pressure was elevated at 1 point, so she was taking a blood pressure medication and hydroxyzine to help through her detox. She was given this by an online healthcare consultation. Insomnia has significantly worsened during her detox. Has only ever tried trazodone for sleep, has also taken Tylenol PM. Was drinking 5 x 24 cans of Smirnoff drinks on a daily basis. She is not having chest pain or palpitations currently. She said that she felt a sharp pain when this occurred, no shortness of breath, nausea, diaphoresis accompanying this. Was not associated with exertion. Has not recurred since. Starts DBT therapy later this month. Hopes that this will help with BDP, as well as alcohol. Has Chantix, but has not yet started taking. Would like to remain abstinent from alcohol and then work on quitting smoking as she was smoking double which she is now when she was drinking. She is very committed to continuing to abstain from alcohol. ROS: As per HPI. Objective BP 101/59 Pulse 72 Ht 170.2 cm (5' 7 ) Wt 86.3 kg (190 lb 4.1 oz) LMP 10/23/2022 SpO2 99% BMI 29.80 kg/m? Physical Exam Constitutional: Appearance: Normal appearance. Cardiovascular: Rate and Rhythm: Normal rate and regular rhythm. Pulses: Normal pulses. Pulmonary: Effort: Pulmonary effort is normal. Breath sounds: Normal breath sounds. Neurological: Mental Status: She is alert. Psychiatric: Attention and Perception: Attention normal. Speech: Speech normal. Thought Content: Thought content normal. Cognition and Memory: Cognition normal. Comments: Slightly anxious [facility] 07-01-2024 History of Present illness Narrative [facility] Medicine Visit Assessment and Plan 1. Chest pain, unspecified type - ICD9: 786.50, ICD10: R07.9 (primary diagnosis) 2. Palpitations - ICD9: 785.1, ICD10: R00.2 3. Bipolar affective disorder in remission (HCC) - ICD9: 296.80, ICD10: F31.70 4. History of substance abuse (HCC) - ICD9: 305.93, ICD10: F19.11 5. Borderline personality disorder (HCC) - ICD9: 301.83, ICD10: F60.3 Atypical chest pain, symptoms are not consistent with cardiac ischemia due to nonexertional nature of symptom and localization of the pain possible etiology include MSK versus anxiety, especially given recent detox from alcohol. - Electrocardiogram: An ECG today showed normal sinus rhythm with sinus arrhythmia at 73 BPM, WY interval 138 ms, normal QRS, poor quality EKG, but overall normal ST-T segments, QT 360 ms -Given overall normal EKG findings, patient saturating 99% on room air, normal cardiac exam and her being hemodynamically stable, I do not think that this warrants further workup or escalation of care at this time. It is very possible that the symptoms were sequela of recent detox and worsening anxiety. We discussed that if symptoms are to recur and not go away, or be associated with diaphoresis, nausea, radiation of pain, feeling of chest pressure or heaviness, that she should go to the ED. She expressed understanding of this and is agreeable to plan. -We will plan to follow-up in 1 month to review her mood, anxiety, and see how she is sleeping. We can additionally check in on substance abuse and attempt to discuss smoking cessation. Patient is agreeable to this. - ECG COMPLETE 6. Serum calcium elevated - ICD9: 275.42, ICD10: E83.52 -Likely secondary to supplement the patient takes, can recheck and also check PTH and vitamin D. We will review these at follow-up visit. - COMPREHENSIVE METABOLIC PANEL - PTH INTACT - VITAMIN D 25 HYDROXY Tevin Carson, DO 07/01/2024 Subjective Patient is a 33 year old female who presents for est care Reports her anxiety is worsening. She follows with psychiatry and is currently on Lamictal 25 mg, Cymbalta 60 mg, Trazodone 50 mg. She recently entered a detox program for alcohol, was at a facility, but left after 12 hours due to a bad experience and has been detoxing at home on her own. She has been experiencing a multitude of symptoms including chest pain, palpitations, worsening anxiety, insomnia, lightheadedness, blurry vision, and bodyaches. Her blood pressure was elevated at 1 point, so she was taking a blood pressure medication and hydroxyzine to help through her detox. She was given this by an online healthcare consultation. Insomnia has significantly worsened during her detox. Has only ever tried trazodone for sleep, has also taken Tylenol PM. Was drinking 5 x 24 cans of Smirnoff drinks on a daily basis. She is not having chest pain or palpitations currently. She said that she felt a sharp pain when this occurred, no shortness of breath, nausea, diaphoresis accompanying this. Was not associated with exertion. Has not recurred since. Starts DBT therapy later this month. Hopes that this will help with BDP, as well as alcohol. Has Chantix, but has not yet started taking. Would like to remain abstinent from alcohol and then work on quitting smoking as she was smoking double which she is now when she was drinking. She is very committed to continuing to abstain from alcohol. ROS: As per HPI. Objective BP 101/59 Pulse 72 Ht 170.2 cm (5' 7 ) Wt 86.3 kg (190 lb 4.1 oz) LMP 10/23/2022 SpO2 99% BMI 29.80 kg/m Physical Exam Constitutional: Appearance: Normal appearance. Cardiovascular: Rate and Rhythm: Normal rate and regular rhythm. Pulses: Normal pulses. Pulmonary: Effort: Pulmonary effort is normal. Breath sounds: Normal breath sounds. Neurological: Mental Status: She is alert. Psychiatric: Attention and Perception: Attention normal. Speech: Speech normal. Thought Content: Thought content normal. Cognition and Memory: Cognition normal. Comments: Slightly anxious documented in this encounter [facility] 07-01-2024 Telephone encounter Note Shazia returned my call from yesterday about her appointment on Thursday. Patient stated that she had a mammogram and US done at [email or web address] recently because she felt a lump in her breast but the images was not able to find it. She stated that her PCP recommended that she get a bx of the area if the mammogram was not able to verify the mass. Patient stated that she felt the lump a year ago and the area is extremely tender to touch; She denies any changes in the size of the lump. She also stated that she spontaneous bloody nipple discharge last year and the last time she noticed it was 8 months ago. She stated she is not sure if the nipple discharge and the lump are in related to one another or not. She plans to greens picker disk with reports from [facility] before her appointment. I asked her to arrive 30 minutes early to appointment so that we can start uploading the disk and she can fill out paperwork. She was appreciative for the call and information. Naldo Borrego MA [facility] 07-01-2024 Miscellaneous Notes Shazia returned my call from yesterday about her appointment on Thursday. Patient stated that she had a mammogram and US done at [email or web address] recently because she felt a lump in her breast but the images was not able to find it. She stated that her PCP recommended that she get a bx of the area if the mammogram was not able to verify the mass. Patient stated that she felt the lump a year ago and the area is extremely tender to touch; She denies any changes in the size of the lump. She also stated that she spontaneous bloody nipple discharge last year and the last time she noticed it was 8 months ago. She stated she is not sure if the nipple discharge and the lump are in related to one another or not. She plans to greens picker disk with reports from [facility] before her appointment. I asked her to arrive 30 minutes early to appointment so that we can start uploading the disk and she can fill out paperwork. She was appreciative for the call and information. Naldo Borrego MA I called and left a message for the patient regarding her appointment 07/04 [address] Mrs. Tyler in the breast center. I left my contact information for her to reach me. Naldo Borrego MA documented in this encounter [facility] 06-30-2024 Telephone encounter Note I called and left a message for the patient regarding her appointment 07/04 [address] Mrs[address] Tyler in the breast center. I left my contact information for her to reach me. Naldo Borrego MA [facility] 05-30-2024 Note HNO ID: [id number] Author: ORLANDO MARTINEZ MA Service: ? Author Type: Insulation Blanket Maker Type: Progress Notes Filed: 05/30/2024 13:52 Note Text: POPULATION HEALTH NAVIGATION OUTREACH Action/FYI Patient called back and I scheduled her for a ED follow up with ELEVATOR INSPECTOR in office. Also scheduled patient for est care appointment. Updated PCP field PER Navigation rules. ACM Reason for Outreach Community Monitoring/Network Navigator Pools AND Phone Line: ACM Patient Contacted: Spoke to patient/parent/or legal guardian Patient identified by name and : Yes Community Monitoring/Network Navigator Pools AND Phone Line actions taken: Patient scheduled: ER Follow-up Establish Care Appointment 05/31/2024 in [facility] with LISHA BIANCHI - ED follow up 07/01/2024 in [facility] with TEVIN CARSON care 08/05/2024 in [facility] with ROBERTO MCKEON of pancreatic cancer, Phx of pancreatic mass Action taken: Marked in OnBase for Schedulers PCP field updated Navigation Signature: Orlando Martinez MA May 30, 2024 1:44 PM [facility] 05-30-2024 History of Present illness Narrative POPULATION HEALTH NAVIGATION OUTREACH Action/FYI Patient called back and I scheduled her for a ED follow up with ELEVATOR INSPECTOR in office. Also scheduled patient for est care appointment. Updated PCP field PER Navigation rules. ACM Reason for Outreach Community Monitoring/Network Navigator Pools & Phone Line: ACM Patient Contacted: Spoke to patient/parent/or legal guardian Patient identified by name and : Yes Community Monitoring/Network Navigator Pools & Phone Line actions taken: Patient scheduled: ER Follow-up Establish Care Appointment 05/31/2024 in [facility] with LISHA BIANCHI - ED follow up 07/01/2024 in [facility] with TEVIN CARSON care 08/05/2024 in [facility] with ROBERTO MCKEON of pancreatic cancer, Phx of pancreatic mass Action taken: Marked in OnBase for Schedulers PCP field updated Navigation Signature: Orlando Martinez MA May 30, 2024 1:44 PM POPULATION HEALTH NAVIGATION OUTREACH Action/FYI Reason for review or outreach: Chart Review Edy[facility] Emergency Department Utilization REQUESTED ACTION/FYI: Please see ED Utilization summary below: A follow-up appointment is not noted in patient's record. We are forwarding this patient to Network Navigation to schedule a [facility] ED 05/23/24 PCP follow-up appointment. Thank you 1st attempt- Called and left a voicemail for patient to call me back directly. [email or web address] message sent Postponing for 2 days. ACM Reason for Outreach Community Monitoring/Network Navigator Pools & Phone Line: ACM Patient Contacted: Unable or unnecessary to reach patient: Left message Unipower Batteryhart message sent Navigation Signature: Orlando Martinez MA May 30, 2024 1:01 PM Summary: [...] patient to Network Navigation to schedule a [facility] ED 05/23/24 PCP follow-up appointment. Thank you Exclusion Criteria - Does not meet exclusion criteria ED DIAGNOSES/REASON(S) FOR ED USE: [place] ED OTHER FINDINGS/SUMMARY: Unable to locate ED discharge summary in Care everywhere Patient Attributed To: KERMIT Payer: Mauricio HAMMOND Action Taken: Referrals/Routed: Population Health Navigation: Appointment. Router to COMMUNITY MONITORING PSS POOL [[id number]] Contact made with patient: No, Chart review only. Signature: Lenora KHALIL, RN, [facility] Primary Care [employer] Set Up Technician [facility] [phone] documented in this encounter [facility] 05-30-2024 Note HNO ID: [id number] Author: ORLANDO MARTINEZ MA Service: ? Author Type: Insulation Blanket Maker Type: Progress Notes Filed: 05/30/2024 13:07 Note Text: POPULATION HEALTH NAVIGATION OUTREACH Action/FYI Reason for review or outreach: Chart Review Edyta Priority Emergency Department Utilization REQUESTED ACTION/FYI: Please see ED Utilization summary below: A follow-up appointment is not noted in patient's record. We are forwarding this patient to Network Navigation to schedule a [facility] ED 05/23/24 PCP follow-up appointment. Thank you 1st attempt- Called and left a voicemail for patient to call me back directly. [email or web address] message sent Postponing for 2 days. AC Reason for Outreach Community Monitoring/Network Navigator Pools AND Phone Line: AC Patient Contacted: Unable or unnecessary to reach patient: Left message Unipower Batteryhart message sent Navigation Signature: Orlando Martinez MA May 30, 2024 1:01 PM [facility] 05-30-2024 Note HNO ID: [id number] Author: LENORA YEE, RN Service: ? Author [...] patient to Network Navigation to schedule a [facility] ED 05/23/24 PCP follow-up appointment. Thank you Exclusion Criteria - Does not meet exclusion criteria ED DIAGNOSES/REASON(S) FOR ED USE: [place] [facility] OTHER FINDINGS/SUMMARY: Unable to locate ED discharge summary in Care everywhere Patient Attributed To: EULALIOE Payer: Mauricio HAMMOND Action Taken: Referrals/Routed: Population Health Navigation: Appointment. Router to [facility] [[phone]] Contact made with patient: No, Chart review only. Signature: Lenora Yee MSN, RN, [facility] Primary Care [employer] Set Up Technician [facility] [phone] [facility] 05-30-2024 Note Patient Outreach ([facility] SHAZIA CHOU ([id number]) 1990 F Date Time Provider Department 05/30/24 LENORA YEE During your visit today, we recorded the [...] patient to Network Navigation to schedule a [facility] ED 05/23/24 PCP follow-up appointment. Thank you Exclusion Criteria - Does not meet exclusion criteria ED DIAGNOSES/REASON(S) FOR ED USE: [place] [facility] OTHER FINDINGS/SUMMARY: Unable to locate ED discharge summary in Care everywhere Patient Attributed To: [facility] Payer: Mauricio HAMMOND Action Taken: Referrals/Routed: Population Health Navigation: Appointment. Router to COMMUNITY MONITORING PSS POOL [[id number]] Contact made with patient: No, Chart review only. Signature: Lenora Yee MSN, RN, [facility] Primary Care [employer] Set Up Technician [facility] [phone] Orlando Martinez MA 05/30/2024 1:07 PM Addendum POPULATION HEALTH NAVIGATION OUTREACH Action/FYI Reason for review or outreach: Chart Review Edy[facility] Priority Emergency Department Utilization REQUESTED ACTION/FYI: Please see ED Utilization summary below: A follow-up appointment is not noted in patient's record. We are forwarding this patient to Network Navigation to schedule a [facility] ED 05/23/24 PCP follow-up appointment. Thank you 1st attempt- Called and left a voicemail for patient to call me back directly. [email or web address] message sent Postponing for 2 days. [facility] Reason for Outreach Community Monitoring/Network Navigator Pools AND Phone Line: [facility] Patient Contacted: Unable or unnecessary to reach patient: Left message Unipower Batteryhart message sent Navigation Signature: Orlando Martinez MA May 30, 2024 1:01 PM Orlando Martinez MA 05/30/2024 1:52 PM Addendum POPULATION HEALTH NAVIGATION OUTREACH Action/FYI Patient called back and I scheduled her for a ED follow up with ELEVATOR INSPECTOR in office. Also scheduled patient for est care appointment. Updated PCP field PER Navigation rules. ACM Reason for Outreach Community Monitoring/Network Navigator Pools AND Phone Line: ACM Patient Contacted: Spoke to patient/parent/or legal guardian Patient identified by name and : Yes Community Monitoring/Network Navigator Pools AND Phone Line actions taken: Patient scheduled: ER Follow-up Establish Care Appointment 05/31/2024 in [facility] with LISHA BIANCHI - ED follow up 07/01/2024 in [facility] with TEVIN CARSON - est care 08/05/2024 in [facility] with ROBERTO MCKEON - Fhx of pancreatic cancer, Phx of pancreatic mass Action taken: Marked in OnBase for Schedulers PCP field updated Navigation Signature: Orlando Martinez MA May 30, 2024 1:44 PM Allergies As of Date: 05/30/2024 Noted Allergy Reaction ARIPIPRAZOLE 08/19/2022 1 - Mental Status Change 14 - Other: See Comments 16 - Unknown BUPROPION 07/16/2021 16 - Unknown COCONUT 11/20/2022 7 - Swelling Date Reviewed: 03/08/2024 Reviewed by: Sofia Benavidez RN - Fully Assessed Reason for Visit: ACM EDYTA RN [[id number]] Cmt: ED Utilization review per request of [...] mg by mouth daily at bedtime. - mqiappphmctk-qbj-zxox-FA-vit K (BARIATRIC MULTIVITAMINS) 45 mg iron- 800 mcg-120 mcg cap Take by mouth. Problem List As Of Date 05/30/2024 Noted Resolved Poor growth, affecting management of moth*07/03/2008 03/08/2024 Idiopathic intracranial hypertension [G93.2] 11/20/2022 Primary hypertension [I10] 11/20/2022 03/08/2024 Depression [F32.A] 11/20/2022 Hx of gastric bypass [Z98.84] 11/20/2022 H/O foot surgery [Z98.890] 11/20/2022 Bipolar affective d (more content not included)... [facility] 05-12-2024 Note HNO ID: [id number] Author: ?, ?, ? Service: ? Author Type: ? Type: Progress Notes Filed: 05/12/2024 17:42 Note Text: MCM sent to pt advising her that her Breast MRI has still not been scheduled. Pancreas was completed. [employer] PSS [facility] 04-26-2024 History of Present illness Narrative Outreach message sent documented in this encounter [facility] 04-26-2024 Note HNO ID: [id number] Author: LAUREN CAPELLAN LPN Service: ? Author Type: LICENSED NURSE Type: Progress Notes Filed: 04/26/2024 15:43 Note Text: Outreach message sent [facility] 04-26-2024 Note Patient Outreach ([facility]) SHAZIA CHOU ([id number]) 1990 F Date Time Provider Department 04/26/24 ELIA BAIRES [facility] During your visit today, we recorded the following information about you: Lauren Capellan LPN 04/26/2024 3:43 PM Signed Outreach message sent Allergies As of Date: 04/26/2024 Noted Allergy Reaction ARIPIPRAZOLE 08/19/2022 1 - Mental Status Change 14 - Other: See Comments 16 - Unknown BUPROPION 07/16/2021 16 - Unknown COCONUT 11/20/2022 7 - Swelling Date Reviewed: 03/08/2024 Reviewed by: Sofia Benavidez RN - Fully Assessed Prescriptions as of 04/26/2024 [...] mg by mouth daily at bedtime. - jnftaydesjgq-gry-wqyq-FA-vit K (BARIATRIC MULTIVITAMINS) 45 mg iron- 800 [...] Encounter Status:Closed by LAUREN CAPELLAN on 04/26/24 [facility] 03-08-2024 Hospital Discharge instructions Patient Education [...] Follow these instructions at home: Medicines Take rhcz-zug-lldpskj and prescription medicines only as told by your health care provider. Ask your health care provider if the medicine prescribed to you: ?Requires you to avoid driving or using heavy machinery. ?Can cause constipation. You may need to take these actions to prevent or treat constipation: ?Drink enough fluid to keep your urine pale yellow. ?Take jngk-akh-pxiloqr or prescription medicines. ?Eat foods that are [...] provider. Document Revised: 12/08/2022 Document Reviewed: 01/24/2020 [employer] Patient Education 2022 [email or web address]. 03/08/2024 15:36:59 Head Injury, Adult Head Injury, [...] Ask your health care provider for a ckki-fy-vsuh plan for gradually returning to activities. Ask [...] your friends, family, a trusted colleague, and workforce consultant about your injury, symptoms, and restrictions. Have them watch for any new or worsening problems. General instructions Take sely-itx-mfbmklv and prescription medicines only as told by [...] provider. Document Revised: 07/13/2020 Document Reviewed: 07/13/2020 [employer] Patient Education 2022 [email or web address]. 03/08/2024 15:36:59 Muscle Strain Muscle Strain A [...] treated? This condition is initially treated with CASTILLO therapy. This therapy involves: Protecting the muscle [...] is not too tight. General instructions Take pzha-zvl-lxwkvmz and prescription medicines only as told by [...] far. This condition is initially treated with CASTILLO therapy, which involves protecting, resting, icing, compressing, and elevating. Gentle movements may be allowed. If physical therapy was prescribed, do exercises as told by your health care provider. This information is not intended to replace advice given to you by your health care provider. Make sure you discuss any questions you have with your health care provider. Document Revised: 11/18/2021 Document Reviewed: 11/18/2021 [employer] Patient Education 2022 [email or web address]. Follow Up Care 03/08/2024 13:07:25 With:David Zazueta Address: [address], [address] [place] [address] [phone] Business (1) When:03/11/2024 15:24:14 With:Jennie Durand Address: [address], [facility] [place] [address]- Business (1) When:Within 3 Day(s) [facility] 03-08-2024 History of Present illness Narrative [...] PATIENT PRESENTS WITH AN IMPLANTABLE OR ATTACHED BUSINESS CONTROL SPECIALIST: No RADIOLOGY DEPARTMENT: MR; Exam(s) Completed: Body: Pancreas/Biliary PERIPHERAL IV DATA: Site assessment: Clean,Dry and Intact, Site disposition Discontinued SIGNED BY: MARIXA Tovar March 08, 2024 10:35 AM documented in this encounter [facility] 03-08-2024 Note HNO ID: [id number] Author: MIRLANDE DIAZ MRI Tech Service: Radiology Author Type: Golf Caddy Type: Progress Notes Filed: 03/08/2024 10:36 Note [...] PATIENT PRESENTS WITH AN IMPLANTABLE OR ATTACHED BUSINESS CONTROL SPECIALIST: No RADIOLOGY DEPARTMENT: MR; Exam(s) Completed: Body: Pancreas/Biliary PERIPHERAL IV DATA: Site assessment: Clean,Dry and Intact, Site disposition Discontinued SIGNED BY: MARIXA Tovar March 08, 2024 10:35 AM [facility] 03-08-2024 Note HNO ID: [id number] Author: SOFIA BENAVIDEZ RN Service: Nursing Author [...] DATE: March 08, 2024 TIME: 10:01 AM [facility] 03-08-2024 Instructions Elia Baires DO - 03/08/2024 8:47 AM EDT 1) Schedule appointment with Austin Mata to discuss Adipex. 2) Schedule MRI of breast 3) I can refill the klonopin as needed. 4) Try steroid as needed twice daily 5) Follow-up in [address] Carson to establish care documented in this encounter [facility] 03-08-2024 Note HNO ID: [id number] Author: ELIA BAIRES DO Service: ? Author [...] CT imaging; following with hepatobiliary surgeon Dr. Aguirre. Recommended she follow-up with recommended MRI for [...] [facility] Says they stopped her Rexulti and switch to Lamictal 75 mg daily. Says this has dramatically improved her symptoms. Currently taking duloxetine 60 mg twice daily and trazodone 50 mg at bedtime. She says that she has only needed to use her clonazepam a few times a week. H (more content not included)... [facility] 03-08-2024 History of Present illness [...] CT imaging; following with hepatobiliary surgeon Dr. Aguirre. Recommended she follow-up with recommended MRI for [...] able to [facility]. Says they stopped her Rexulti [...] cancer so was referred to hepatobiliary Dr. Aguirre for evaluation. Case also discussed with tumor board. 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 Dr. Agiurre recommended serial imaging for February which she [...] updated today in the History tab of [facility]. REVIEW OF SYSTEMS: All other reviewed and [...] Elia Baires DO documented in this encounter [facility] 01-04-2024 Instructions Elia Baires DO - 01/04/2024 10:16 AM EDT 1) Give urine sample today. 2) Placed lab orders. Fast for 12 hours then get labs. 3) I would follow-up with your psychiatrist in January 4) Physical in 1-2 months. documented in this encounter [facility] 01-04-2024 Note HNO ID: [id number] Author: ELIA BAIRES DO Service: ? Author [...] She says that she is originally from [facility] however came up to here today to [...] to establish with a new psychiatrist at [facility] in [place]. She also sees a counselor weekly. Current [...] psychosis or maryam. Dr. Elia Baires, DO [facility] 01-04-2024 History of Present illness Narrative [...] She says that she is originally from [facility] however came up to here today to [...] to establish with a new psychiatrist at [facility] in [place]. She also sees a counselor weekly. Current [...] Elia Baires DO documented in this encounter [facility] 09-18-2023 Hospital Discharge instructions Gamaliel Vickers DO - 09/18/2023 8:29 AM EST POST-ENDOSCOPY [...] questions, PLEASE call your doctor or the [facility] Weight Management center at documented in this encounter [facility] 09-16-2023 History of Present illness Narrative PAT phone call for /EGD completed with pt. Date/time/location (entrance C) of surgery/procedure verified with pt. NPO after MN status verified with pt. Need for jinrikisha driver ( ) verified with pt. Instructed pt to take a shower the AM of surgery/procedure and to avoid lotions, creams, jewelry. Encouraged pt to avoid artificial nails and/or nailpolish. Instructed pt to take BP meds with a small sip of water prior to procedure/surgery. documented in this encounter [facility] 09-15-2023 Note HNO ID: [id number] Author: Rahul Godinez DO Service: ? Author Type: Fellow Type: Progress Notes Filed: 09/15/2023 12:00 PM Note Text: [facility] Multidisciplinary Crquow-Rczjoojnk-Htfmium AND Upper GI Case Conference -- Consensus [...] months Rahul Godinez DO HPB Surgical Fellow [facility] 08-13-2023 Evaluation note Encounter Date Diagnosis Assessment Notes Jul, Pancreatic cyst (ICD-10 - K86.2) [facility] 10-25-2023 Evaluation note* Encounter Date Diagnosis [...] stop smoking. Jun, Smoker (ICD-10 - F17.200) [facility] Other 09-27-2023 NoteHNO ID: [id number] Author: Eileen Alvarez MD Service: ? Author Type: Physician Type: Progress Notes Filed: 06/10/2023 3:39 PM Note Text: [facility] Follow Up / Established Virtual Visit I have communicated my name and active licensure. The patient's identity and physical location were verified at the time of this visit. Either the patient or their legal kiosk sales representative has been informed of the risks and benefits of -- and alternatives to -- treatment through a remote evaluation and consents to proceed with the evaluation remotely. 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 Idiopathic [...] she agreed. She needs to follow with shadowgraph operator every 6 months. In some patients with [...] her eyes. She has never seen an shadowgraph operator. CSF protein 24, Glu 55, Pro 28, [...] speech. Cr (more content not included)...[id number] Miscellaneous Notes * Telephone Encounter - Clara Durbin RN - 06/03/2023 4:24 PM EDT Refill request routed to provider for review. * Telephone Encounter - Fabby Fam - 06/03/2023 12:43 PM EDT Physician: Dr Alvarez Call from pharmacy requesting refill. Please E-Scribe Last OV: 11/20/22 with Man Future OV: none with Man Requested Prescriptions Pending Prescriptions Disp Refills acetaZOLAMIDE SR (DIAMOX SEQUELS) 500 mg capsule [Pharmacy Med Name: ACETAZOLAMIDE ER 500 MG CAP] 180 capsule 1 Sig: TAKE 1 CAPSULE BY MOUTH TWICE DAILY. START FROM 500MG DAILY, INCREASE TO TWICE A DAY IN A WEEK Pharmacy Name: [facility] Pharmacy Phone #: [phone] Fabby Cassidy [facility] Evaluation + Plan note Diagnostic Tests Pending * Zinc Level 03/19/23 * PTH Intact 03/19/23 * Vitamin A Level 03/19/23 * Vitamin B1 03/19/23 Future Scheduled Tests Laboratory* CBC w/ Auto Diff 11/7/22 Radiology* MA Mamm Screen w/CAD if perf and 3D Tanmay 04/21/22 [facility]05-04-2023 Hospital Discharge instructions Patient Education 01/15/2023 [...] Follow these instructions at home: Medicines Take jyzg-gdt-apvghnm and prescription medicines only as told by [...] provider. Document Revised: 11/14/2021 Document Reviewed: 11/14/2021 [employer] Patient Education 2022 [email or web address]. Follow Up Care 01/15/2023 10:48:45 With:Jennie Durand Address: [address] , [facility] [address] [place] [address]- Business (1) When:01/18/2023 13:32:37 [facility]05-04-2023 Evaluation + Plan noteExtracted from: Title:ED [...] w/CAD if perf and 3D Tanmay 04/21/22 [facility]03-31-2023 Miscellaneous Notes* Telephone Encounter - Clara Durbin RN - 12/12/2022 3:03 PM EDT Spoke with patient and informed that per [facility] pharmacy, there are remaining refills on her Diamox Sequels. She verbalized understanding. * Telephone Encounter - Fabby Cassidy - 12/12/2022 2:32 PM EDT Physician: Dr Alvarez Call from patient requesting refill. Please E-Scribe Last OV: 11/20/[address] Alvarez Future OV: 03/20/[address] Alvarez Requested Prescriptions Pending Prescriptions Disp Refills acetaZOLAMIDE SR (DIAMOX SEQUELS) 500 mg capsule [Pharmacy Med Name: ACETAZOLAMIDE ER 500 MG CAP] 60 capsule 5 Sig: TAKE 1 CAPSULE BY MOUTH TWICE DAILY. START FROM 500MG DAILY, INCREASE TO TWICE A DAY IN A WEEK Pharmacy Name: [facility] Pharmacy Phone #: [phone] Fabby Cassidy [facility] Hospital Discharge instructions Patient Education 12/05/2022 12:15:12 Post Op Patient Instructions - FT (CUSTOM) 12/05/2022 12:15:12 ELECTRONIC DEVELOPMENT TECHNICIAN - Post Hysterectomy/Laparotomy/Major Surgery-Thiago (CUSTOM) Instructions post [...] Up Care 11/04/2022 14:01:47 With:Gal Das Address: [address] [place] [address] Business (1) When:6 weeks With:Gal Das Address: [address] [place] [address], [place] [id number] [facility] (1) When:2 weeks Comments:Call for any problems. [facility]03-24-2023 Evaluation + Plan noteExtracted from: Title:ANES Post-operative Note - General Author: Vu Maria Jr., DO Date:12/05/22 Plan Transfer/Discharge: Transfer/Discharge Discharge when meets criteria ( From PACU to Ambulatory Surgery Unit, and To home ). Extracted from: Title:ANES Pre-operative Note - Adult Author:Vu Chowdhury Jr., DO Date:12/05/22 Plan Citizen Of [place] Society of Anesthesiologists (ASA) physical status classification: Class II. Anesthetic Preoperative Plan: Anesthesia General. Future Appointments Appointment Date:01/02/2023 10:00:00 AM Scheduled Provider:Nakia Shah Location:[facility] Appointment Type:FM Open Future Scheduled Tests Laboratory* CBC w/ Auto Diff 07/21/22 Radiology* MA Mamm Screen w/CAD if perf and 3D Tanmay 04/21/22 [facility]03-09-2023 NoteHNO ID: [id number] Author: Eileen Alvarez MD Service: ? 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 She has never seen an shadowgraph operator. 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 Idiopathic [...] she agreed. She needs to follow with shadowgraph operator every 6 months. In some patients with [...] (diamox 500m (more content not included)...[facility] [id number] Instructions* Patient Instructions* Eileen Alvarez MD - 11/20/2022 8:58 AM EST --We [...] up in 2-4 months [facility] History of Present illness Narrative* Eileen Alvarez MD - 11/20/2022 7:57 AM EST Images from the original note were not included. [facility] New Patient Evaluation Consulting Provider: SELF Individuals who were included in, or assisted with the encounter were: Shazia José Antonio Alvarez MD Chief Complaint/Issues: Shazia Chou is a 31 year old R handed female w PMH HTN, depression, recently diagnosed idiopathic intracranial hypertension, EtOH drinking, H gastric bypass surgery w 100lb weight loss, H of footsurgery due to congenital deformity, seen in the [facility] for: Idiopathic intracranial [...] her eyes. She has never seen an shadowgraph operator. CSF protein 24, Glu 55, Pro 28, [...] & Plan 11/20/2022 - General Neurology, Eileen Alvarez MD ASSESSMENT Shazia Chou is a 31 year old R handed female w PMH HTN, depression, recently diagnosed idiopathic intracranial hypertension, EtOH drinking, H gastric bypass surgery w 100lb weight loss, H of footsurgery due to congenital deformity, seen in the [facility] for: 1. Idiopathic [...] she agreed. She needs to follow with shadowgraph operator every 6 months. In some patients with [...] Take 40 mg by mouth once daily. afobpastbmis-yhk-xvst-FA-vit K (BARIATRIC MULTIVITAMINS) 45 mg iron- 800 [...] % Lymph% 20 15.9 - 47.3 % Dewey% 6 0.0 - 12.0 % Eosin% 3 0.0 - 6.6 % Baso% 1 0.0 - 1.2 % Abs Neut (ANC) 7.64 (H) 1.45 - 7.50 k/uL Abs Lymph 2.18 1.00 - 4.00 K/uL Abs Dewey 0.65 0.00 - 0.86 k/uL Abs Eosin [...] which included preparing to see the patient, skip-lm-boly patient care, completing clinical documentation, obtaining and/or reviewing separately obtained history, performing a medically appropriate examination, counseling and educating the pat ient/family/caregiver, ordering medications, tests, or procedures, independently interpreting results (not separately reported), communicating results to the patient/family/caregiver, and care coordination (not separately reported). Eileen Alvarez MD documented [facility] this [facility] Hospital Discharge instructions Patient Education 11/03/2022 13:28:28 [...] height. This can be done either in [place] ([place] or metric measurements. Note that charts are available to help you find your BMI quickly and easily without having to do these calculations yourself. To calculate your BMI in [place] ([place] measurements, your health care provider will: [...] medical problems. BMI can be measured using [place]i measurements or metric measurements. To interpret your [...] 05/12/2005 Document Revised: 08/13/2018 Document Reviewed: 07/14/2018 [employer] Patient Education 2020 [email or web address]. 11/03/2022 13:28:26 Tobacco Use Disorder Tobacco Use [...] reduces withdrawal symptoms. NRT is available as: ?Bkap-pld-mvspwjt gums, lozenges, and skin patches. ?Prescription mouth [...] recovery for many people. General instructions Take aebu-whl-mkysnej and prescription medicines only as told by your health care provider. Check with your health care provider before taking any new prescription or edyq-sdi-ngeuzkg medicines. Decide on a friend, family member, or smoking quit-line (such as 1-659-PQQE-NOW in the [place] that you can call [...] 05/06/2005 Document Revised: 08/18/2018 Document Reviewed: 08/18/2018 [employer] Patient Education 2020 [employer].com. 11/03/2022 13:28:23 Alcohol Abuse and Dependence Information, [...] to find support Your health care provider. [employer]: www.[employer] Labsy.org Therapy and support groups Local treatment centers or chemical dependency counselors. Local AA groups in your community: www.aa.org Where to find more information Centers for Disease Control and Prevention: www.cdc.gov National [place] on Alcohol Abuse and Alcoholism: www.niaaa.nih.gov Alcoholics [...] 08/25/2017 Document Revised: 12/20/2019 Document Reviewed: 11/08/2019 [employer] Patient Education 2020 [employer]. 11/03/2022 13:28:19 BMI for Adults BMI for [...] height. This can be done either in [place] ([place] or metric measurements. Note that charts are available to help you find your BMI quickly and easily without having to do these calculations yourself. To calculate your BMI in [place] ([place] measurements, your health care provider will: [...] medical problems. BMI can be measured using [place]i measurements or metric measurements. To interpret your [...] 05/12/2005 Document Revised: 08/13/2018 Document Reviewed: 07/14/2018 [employer] Patient Education 2020 [employer]. 10/27/2022 11:56:27 Alcohol Abuse and Dependence Information, [...] for Disease Control and Prevention: www.cdc.gov National [place] on Alcohol Abuse and Alcoholism: www.niaaa.nih.gov Alcoholics [...] 08/25/2017 Document Revised: 12/20/2019 Document Reviewed: 11/08/2019 [employer] Patient Education 2019 [employer] Follow Up Care 10/15/2022 11:28:56 With:Nakia Shah Address: [address], [place] [address]- When:Within 2 Month(s) Comments:f/u smoking cessation and BP [facility] 01-11-2023 Hospital Discharge [...] reduces withdrawal symptoms. NRT is available as: ?Dwuk-fyd-nqxwupe gums, lozenges, and skin patches. ?Prescription mouth [...] recovery for many people. General instructions Take tyyq-xqy-yeuaotd and prescription medicines only as told by your health care provider. Check with your health care provider before taking any new prescription or chgp-zsu-ohiiynj medicines. Decide on a friend, family member, or smoking quit-line (such as 7-455-OSJP-NOW in the [place] that you can call [...] 05/06/2005 Document Revised: 08/18/2018 Document Reviewed: 08/18/2018 [employer] Patient Education 2020 [employer]. 09/24/2022 07:23:47 BMI for Adults BMI for [...] height. This can be done either in [place] ([place] or metric measurements. Note that charts are available to help you find your BMI quickly and easily without having to do these calculations yourself. To calculate your BMI in [place] ([place] measurements, your health care provider will: [...] medical problems. BMI can be measured using [place]i measurements or metric measurements. To interpret your [...] 05/12/2005 Document Revised: 08/13/2018 Document Reviewed: 07/14/2018 [employer] Patient Education 2020 [employer]. 09/24/2022 07:23:45 Alcohol Use Disorder Alcohol Use [...] centers. Follow these instructions at home: Take wkww-zgd-kzpqcgw and prescription medicines only as told by [...] 10/08/2005 Document Revised: 08/13/2018 Document Reviewed: 05/28/2017 [employer] Patient Education 2020 [employer].com. 09/24/2022 07:23:42 Borderline Personality Disorder, Adult Borderline [...] with BPD should do these things: Take efvj-tju-wtikxud and prescription medicines only as told by [...] important. Where to find more information National [place] on Mental Illness: www.marivel.org [place]. National [place] of Mental Health: www.nimh.nih.gov Contact a health [...] 12/16/2011 Document Revised: 08/13/2018 Document Reviewed: 11/05/2017 [employer] Patient Education 2020 [employer] 09/24/2022 07:23:39 Managing Bipolar Disorder Managing Bipolar [...] Follow these instructions at home: Medicines Take xaag-pox-lacahqx and prescription medicines only as told by your health care provider or pharmacist. Ask your pharmacist what xxxd-qrp-fylzmol cold medicines you should avoid. Some medicines [...] a problem, search for a local or [facility] mental health care center. Public mental [...] 12/31/2017 Document Revised: 12/23/2019 Document Reviewed: 12/31/2017 [employer] Patient Education 2020 G[employer].com. Follow Up Care 09/16/2022 13:23:11 With:Aimee Walker CNP Address: [address] [place] [phone] [phone] When:3 months [facility] 12-09-2022 Hospital Discharge instructions Patient Education 08/22/2022 11:12:56 Tension Headache, Adult, Ibxr-jz-Qxlw Tension Headache, Adult A tension headache is pain, pressure, or aching in your head. Tension headaches can last from 30 minutes to several days. Follow these instructions at home: Managing pain Take ozmc-ioc-ojmzjhh and prescription medicines only as told by [...] 11/25/2010 Document Revised: 08/13/2018 Document Reviewed: 12/11/2017 [employer] Patient Education 2020 [employer]. Follow Up Care 08/14/2022 12:38:29 With:Rita SNOWDEN, IGGY Roberson, PED Address: [address], [place] [address] When:1 month only if needed Comments:40 mins [facility] 12-05-2022 Hospital Discharge [...] feet clean and dry. General instructions Take snmz-vyr-ozhxmpk and prescription medicines only as told by [...] 09/26/2016 Document Revised: 06/16/2019 Document Reviewed: 06/16/2019 [employer] Patient Education 2020 [employer].com. 08/18/2022 19:56:48 Foot Sprain Foot Sprain A [...] fully hardened. This may takeseveral hours. Take hujb-pmn-pdsoizm and prescription medicines only as told by [...] 02/20/2003 Document Revised: 09/04/2018 Document Reviewed: 09/04/2018 [employer] Patient Education 2020 [employer]. 08/18/2022 19:56:48 Elastic Bandage and RICE Therapy [...] limityour activities and whether you should start ccsxv-qm-mkiyqo exercises for your injury. Ice Ice your [...] 02/20/2003 Document Revised: 05/21/2018 Document Reviewed: 05/21/2018 [employer] Patient Education 2020 [employer]. Follow Up Care 08/18/2022 17:21:15 With:Hilton Gillis Address: [address] [place] [id number] Business (1) When:08/21/2022 19:10:21 With:Aimee Walker Address:Unknown When:Within 3 Day(s) [facility]29[facility] Progress note Author Lizzeth Malave [facility] August 12, 2022 10:46am Note Date/Time August 12, 2022 10:45am [facility] [address] [place] [address] Hospitalist Progress Note Signed Patient: Shazia Chou MR#: [id number] : 1990 Acct:[id number] Age/Sex: 31 / F Adm Date: 2 Loc: 4N Room: [address] [place] [address] Type: ADM INOo Attending Dr: Lizzeth Malave MD Copies to: ~ Date of Service: 08/12/2022 Subjective Subjective Narrative: Shazia Chou is a 31yo F. She was transferred here last night from [facility] with worsening headache and blurry vision [...] 0.5 ml 08/13/22 09:00 Flu Vac Quad (36mon+)Pf 0.5 Ml Syringe 8004-3524 IM 08/13/22 09:01 .ONCE ONE Omeprazole 20 [...] signed by Lizzeth Malave MD> 08/12/22 1046 [facility] Work Phone: 1(196) 716-688711-29-2022 Consult note Author Kenrick Lee [facility] August 12, 2022 4:21pm Note Date/Time August 12, 2022 8:13am [facility] [address] [place] [address] Neurology Consult Note Signed Patient: Shazia Chou MR#: [id number] : 1990 Acct:[id number] Age/Sex: 31 / F Adm Date: 2 Loc: Room: [address] [place] [address] Type: ADM INOo Attending Dr: Lizzeth Malave MD Copies to: DO Jennie Wise ANP-C Ruta Semaskiene, MD~ HPI Consult Date: 08/12/22 Block Trimmer: ASTON Bro with Dr Lee Reason for consult: Headache, blurred vision Consult Narrative HPI: Patient is a 31-year-old female with medical history of bipolar, personality disorder, depression, and tobacco use in addition to 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 She has been seen in neurological consultation with request of the hospital service for headache and blurred vision. Patient initially presented to [facility] and [facility]. She was seen in the [place] [facility] on 08/08/2022 with similar symptoms and [...] this is when she called EMS. At [facility] she had a CT scan of [...] History (Updated 08/12/22 @ 09:50 by Cynthia Borrego) Alcoholism in recovery Bipolar 1 disorder Borderline [...] extremity from prior surgery CEREBELLAR EXAM: * Rznsft-mc-plmk and alternating movements are intact and normal in bilateral upper extremities * Yeak-ow-jwrt and alternating movements are intact and normal [...] puncture based on these results. Evaluation at [facility]: * CT scan head is nonacute. [...] once daily). Okay for discharge now from [facility]. Documented By: EDINSON Dias [id number] Signed By: <Electronically signed by EDINSON Niño> 08/12/22 0958 <Electronically signed by Kenrick Lee DO> 08/12/22 1774 [facility] Work Phone: 1(237) 638-576511-28-2022 History and physical note Author Sangeetha Peña [facility] August 11, 2022 9:43pm Note Date/Time August 11, 2022 9:08pm [facility] [address] [place] [address] Hospitalist H&P Signed Patient: Shazia Chou MR#: [id number] : 1990 Acct:[id number] Age/Sex: 31 / F Adm Date: 2 Loc: 4N Room: [address] [place] [address] Type: ADM IN Attending Dr: Erin Barahona MD Copies to: MD Erin Mcwilliams MD~ HPI DATE OF EXAMINATION: 08/11/22 CHIEF COMPLAINT: Headache with blurry vision HISTORY OF PRESENT ILLNESS: Patient is a pleasant 31-year-old female with history of borderline personality disorder, bipolar disorder and depression. She was accepted by daytime hospitalist when contacted by [place] [facility] physician due to concern for headache [...] pain or dysuria. She was seenin the [place] [facility] on 08/08 with similar symptoms. She [...] vision: Plan Patient has been transferred from [facility] when she presented with complaint of headache and blurry vision. During my evaluation her blood pressure is in 115 systolic and complaining of headache with blurry vision. Denies diplopia with no pain in extraocular movement. There is concern for possible idiopathic intracranial hypertension and patient has been transferred to [facility] for further management and neurology evaluation. [...] <Electronically signed by Sangeetha Peña MD> 08/11/222142 [facility] Work Phone: 1(191) 463-785611-25-2022 Evaluation + Plan noteExtracted from: Title:ED Note [...] Nausea/Vomiting, # 12 tab(s), Refills(s) 0, Pharmacy: [facility]/pharmacy #[id number], 162, cm, 08/08/22 9:11:00 EST, Height/Length Dosing, 83.1, kg, 08/08/22 9:11:00 EST, Weight Dosing Automated Diff Basic Metabolic Panel Beta hCG Qual CBC w/ Auto Diff CT Head or Brain w/o Contrast eGFR Influenza A&B Ag Rapid COVID Antigen ([facility]) UA With Cult Reflex Future Scheduled Tests Laboratory* CBC w/ Auto Diff 07/21/22 Radiology* MA Mamm Screen w/CAD if perf and 3D Tanmay 04/21/22 [facility]11-25-2022 Hospital Discharge instructions Patient Education 08/08/2022 [...] health care provider to lose weight. Take fwlx-qlo-hmpihok and prescription medicines only as told by [...] 11/09/2002 Document Revised: 08/13/2018 Document Reviewed: 07/22/2017 [employer] Patient Education [employer]. Follow Up Care 08/08/2022 09:04:11 With:Kenrick Lee Address: [address] [place] [address] [facility] (1) When:08/11/2022 11:38:22 Comments:Follow-up with Dr. Lee [...] you develop any new or worsening symptoms. [facility]11-07-2022 Evaluation + Plan note Future Scheduled Tests Laboratory* CBC w/ Auto Diff 07/21/22 Radiology* MA Mamm Screen w/CAD if perf and 3D Tanmay 04/21/22 [facility] 11-07-2022 Evaluation + Plan note Future Scheduled Tests Laboratory* CBC w/ Auto Diff 07/21/22 [facility]11-07-2022 Hospital Discharge instructions Patient Education 07/21/2022 [...] Follow these instructions at home: Medicines Take fhin-mri-ilyhqdu and prescription medicines only as told by your health care provider or pharmacist. Ask your pharmacist what wnbp-cnd-rldwenw cold medicines you should avoid. Some medicines [...] a problem, search for a local or [facility] mental health care center. Public mental [...] 12/31/2017 Document Revised: 12/23/2019 Document Reviewed: 12/31/2017 [employer] Patient Education 2020 [email or web address]. 07/21/2022 11:21:57 Tobacco Use Disorder Tobacco Use [...] reduces withdrawal symptoms. NRT is available as: ?Jgsf-wwf-xehldcl gums, lozenges, and skin patches. ?Prescription mouth [...] recovery for many people. General instructions Take lzic-pax-lulzyny and prescription medicines only as told by your health care provider. Check with your health care provider before taking any new prescription or foye-gnq-dsmzorj medicines. Decide on a friend, family member, or smoking quit-line (such as 3-576-CYLG-NOW in the [place] that you can call [...] 05/06/2005 Document Revised: 08/18/2018 Document Reviewed: 08/18/2018 [employer] Patient Education 2020 [email or web address]. 07/21/2022 11:21:55 BMI for Adults BMI for [...] height. This can be done either in [place] ([place] or metric measurements. Note that charts are available to help you find your BMI quickly and easily without having to do these calculations yourself. To calculate your BMI in [place] ([place] measurements, your health care provider will: [...] medical problems. BMI can be measured using [place]i measurements or metric measurements. To interpret your [...] 05/12/2005 Document Revised: 08/13/2018 Document Reviewed: 07/14/2018 [employer]YIO Patient Education 2020 Elsevier Inc. 07/21/2022 11:21:53 Leukocytosis Leukocytosis Leukocytosis means [...] Follow these instructions at home: Medicines Take gwyw-aan-cbkfyfu and prescription medicines only as told by [...] 08/19/2012 Document Revised: 05/26/2019 Document Reviewed: 05/26/2019 Elsevier Patient Education 2019 Elsevier Inc. Follow Up Care 07/18/2022 10:46:12 With:Aimee Walker CNP Address: When: only if needed [facility] 11-04-2022 Miscellaneous Notes* Telephone Encounter - Cat Rojo LPN - 07/18/2022 11:04 AM EDT Call placed to patient, no answer. Left message for patient to proceed with nicotine testing prior to scheduling. Please transfer to plastic surgery nurse if patient returns call with questions. [facility] Evaluation + Plan note Future Scheduled Tests Radiology* MRI Breast w/o and w/ Contrast, Left 05/13/22 * MA Mamm Screen w/CAD if perf and 3D Tanmay 04/21/22 [facility] [place] 08-30-2022 Hospital Discharge instructions Patient Education 05/13/2022 [...] ?Hypothyroidism. ?Polycystic ovarian syndrome (PCOS). ?Binge-eating disorder. ?[place] syndrome. Taking certain medicines, such as steroids, [...] food choices, such as grocery stores and [employer]. What are the signs or symptoms? [...] and how much exercise you get. Take jvqs-dpr-aggvnaw and prescription medicines only as told by [...] 10/08/2005 Document Revised: 05/05/2019 Document Reviewed: 05/05/2019 [employer] Patient Education 2020 [email or web address]. [facility] [place] [id number] Evaluation + Plan note Future Scheduled Tests Radiology* MA Mamm Screen w/CAD if perf and 3D Tanmay 04/21/22 [facility]08-08-2022 Hospital Discharge instructions Patient Education 04/21/2022 [...] height. This can be done either in [place] ([place] or metric measurements. Note that charts are available to help you find your BMI quickly and easily without having to do these calculations yourself. To calculate your BMI in [place] ([place] measurements, your health care provider will: [...] medical problems. BMI can be measured using [place]i measurements or metric measurements. To interpret your [...] 05/12/2005 Document Revised: 08/13/2018 Document Reviewed: 07/14/2018 [employer] Patient Education 2020 [employer] Inc. 04/21/2022 10:14:51 Lymphadenopathy Lymphadenopathy Lymphadenopathy means that [...] at home: Get plenty of rest. Take omze-iop-xhefhkx and prescription medicines only as told by your health care provider. Your health care provider may recommend ldpu-nbs-lvaxbti medicines for pain. If directed, apply heat [...] 06/09/2009 Document Revised: 08/13/2018 Document Reviewed: 07/16/2018 [employer] Patient Education 2020 [email or web address]. 04/21/2022 10:14:49 Tobacco Use Disorder Tobacco Use [...] reduces withdrawal symptoms. NRT is available as: ?Smfu-cqy-ctlwxfj gums, lozenges, and skin patches. ?Prescription mouth [...] recovery for many people. General instructions Take ycmi-sum-rxplkom and prescription medicines only as told by your health care provider. Check with your health care provider before taking any new prescription or dqau-jji-uqpvqoi medicines. Decide on a friend, family member, or smoking quit-line (such as 0-310-MUXW-NOW in the [place] that you can call [...] 05/06/2005 Document Revised: 08/18/2018 Document Reviewed: 08/18/2018 [employer] Patient Education 2020 [email or web address]. Follow Up Care 04/17/2022 09:51:05 With:Aimee Walker CNP Address: When: only if needed [facility] 08-07-2022 Hospital Discharge [...] at home: Get plenty of rest. Take ktfw-ttw-wuxglwa and prescription medicines only as told by your health care provider. Your health care provider may recommend imdm-ybx-ocsfzly medicines for pain. If directed, apply heat [...] 06/09/2009 Document Revised: 08/13/2018 Document Reviewed: 07/16/2018 [employer]YIO Patient Education 2020 [email or web address]. Follow Up Care 04/20/2022 14:55:22 With:Aimee Walker Address: [address] [place] [address] Frank, [facility] [place] [address] [phone] Business (1) When:04/23/2022 16:08:48 Comments:Follow-up with your primary care provider in 3 to 5 days. If symptoms worsen, do not improve, or new symptoms arise please report back to emergency department for further evaluation. [facility]08-07-2022 Evaluation + Plan noteExtracted from: Title:ED Note Author:Dony Alegre PA-C te:04/20/22 Axillary lymphadenopathy (R5 9.0: Localized enlarged lymph nodes) Orders: naproxen, 500 mg = 1 tab(s), Oral, BID, PRN for pain, # 20 tab(s), Refills(s) 0, Pharmacy: [facility]/pharmacy #[id number], 170, cm, 04/20/22 15:01:00 EDT, Height/Length Dosing, 81.5, kg, 04/20/22 15:01:00 EDT, Weight Dosing Automated Diff Basic Metabolic Panel CBC w/ Auto Diff eGFR XR Chest 2 Views Future Appointments Appointment Date:04/21/2022 09:40:00 AM Scheduled Provider:Aimee Walker CNP Location:[facility] Appointment Type: Open [facility]07-21-2022 Hospital Discharge instructions Patient Education 04/03/2022 [...] 03/15/2012 Document Revised: 08/24/2019 Document Reviewed: 08/24/2019 [employer] Patient Education 2020 [email or web address]. Follow Up Care 04/03/2022 16:59:04 With:Aimee Walker CNP Address: [phone] When:04/06/2022 [facility]06-17-2022 Miscellaneous Notes* Telephone Encounter - Lina Chavez RN - 02/28/2022 3:[address] Mckee, patient must be 4 weeks nicotine free prior to scheduling and collection of cosmetic payment. documented in this encounter[facility] History of Present illness Narrative* Amee Gonzalez PA-C - 02/12/2022 10:38 AM EDT Images from the original note were not included. Otolaryngology Consultation/Evaluation Note Head and Neck [place] ASSESSMENT: Burning tongue (primary encounter diagnosis) Irritation [...] Take 40 mg by mouth once daily. fbkinczvlyxe-tmr-cyeu-FA-vit K (BARIATRIC MULTIVITAMINS) 45 mg iron- 800 [...] and tender to palpation specifically around b/l [place]'s ducts and frenulum. Ventral aspect of tongue [...] Level: 3 - Low documented in this encounter[facility] Hospital Discharge instructions Patient Education 02/06/2022 09:33:48 [...] reduces withdrawal symptoms. NRT is available as: ?Knmg-sfg-vdclurw gums, lozenges, and skin patches. ?Prescription mouth [...] recovery for many people. General instructions Take cxqd-vjq-elxhptz and prescription medicines only as told by your health care provider. Check with your health care provider before taking any new prescription or ubqa-bhh-chcziwm medicines. Decide on a friend, family member, or smoking quit-line (such as 9-903-YDXL-NOW in the [place] that you can call [...] 05/06/2005 Document Revised: 08/18/2018 Document Reviewed: 08/18/2018 [employer]YIO Patient Education 2020 [email or web address].com. 02/06/2022 09:33:46 BMI for Adults BMI for [...] height. This can be done either in [place] ([place] or metric measurements. Note that charts are available to help you find your BMI quickly and easily without having to do these calculations yourself. To calculate your BMI in [place] ([place] measurements, your health care provider will: [...] medical problems. BMI can be measured using [place]i measurements or metric measurements. To interpret your [...] 05/12/2005 Document Revised: 08/13/2018 Document Reviewed: 07/14/2018 [employer] Patient Education 2019 [email or web address]. Follow Up Care 02/05/2022 13:43:34 With:Aimee Walker CNP Address: When: only if needed [facility] 05-18-2022 Hospital Discharge [...] problems. It is used to check whether neel is obese, overweight, healthy weight, or underweight. How is BMI calculated? BMI measures your weight and compares it to your height. This can be done either in [place] ([place] or metric measurements. Note that charts are available to help you find your BMI quickly and easily without having to do these calculations yourself. To calculate your BMI in [place] ([place] measurements, your health care provider will: [...] medical problems. BMI can be measured using [place]i measurements or metric measurements. To interpret your [...] 05/12/2005 Document Revised: 08/13/2018 Document Reviewed: 07/14/2018 [employer]YIO Patient Education 2020 [email or web address]. 01/29/2022 11:02:54 Complicated Grief Complicated Grief Grief [...] friends and loved ones. General instructions Take aoqk-taz-aypqurk and prescription medicines only as told by [...] 08/31/2006 Document Revised: 08/13/2018 Document Reviewed: 06/16/2018 [employer]YIO Patient Education 2020 GZ.com. 01/29/2022 11:02:50 Alcohol Abuse and Dependence Information, [...] find support Your health care provider. [employer]: www.[employer].org Therapy and support groups Local treatment centers or chemical dependency counselors. Local AA groups in your community: www.aa.org Where to find more information Centers for Disease Control and Prevention: www.cdc.gov National [place] on Alcohol Abuse and Alcoholism: www.niaaa.nih.gov Alcoholics [...] 08/25/2017 Document Revised: 12/20/2019 Document Reviewed: 11/08/2019 [employer] Patient Education 2020 G[employer].com. 01/29/2022 11:02:46 Managing Bipolar Disorder Managing Bipolar [...] Follow these instructions at home: Medicines Take spul-gyj-zglcttd and prescription medicines only as told by your health care provider or pharmacist. Ask your pharmacist what iqok-zus-cgqiptg cold medicines you should avoid. Some medicines [...] a problem, search for a local or [facility] mental health care center. Public mental [...] 12/31/2017 Document Revised: 12/23/2019 Document Reviewed: 12/31/2017 [employer]YIO Patient Education 2020 [email or web address].com. [facility] 05-02-2022 Miscellaneous Notes* [...] test discussed. * Telephone Encounter - Molly Armen - 01/10/2022 9:11 AM EDT Patient is calling in because her insurance told her they would pay for the panniculectomy verses atummy tuck. Patient was wondering if she had the panniculectomy with lipo and the bellybutton. How much would that be for her out of pocket? Patient states that if she needed to come in for another consult she would. Please advise at [phone] documented in this encounter[facility]22 Miscellaneous Notes* Telephone Encounter - Rocio Hester [...] understood. Rocio Hester Ma documented in this encounterSelect [facility]21 History of Present illness Narrative* Radha Jara - 02/01/2021 9:47 AM EDT CLINICAL PHARMACY NOTE: MEDS TO BEDS Total # of Prescriptions Filled: 2 The following medications were delivered to the patient: Percocet 5-325mg Augmentin 875-125mg Additional Documentation: delivered to patient in room 236 02/01 at 9:44am. Co- pay paid with credit on [employer] ($4.31). * Gamaliel Vickers DO - 01/31/2021 6:29 AM EDT Bariatric [...] Advance diet Overall improvement * Yvonne Singh RP - 01/30/2021 9:03 PM EDT Images from [...] Singh RPH :00 PM documented in this encounterMozido Phone: [phone] 271-982805-15-2021 History of Present illness Narrative* Jasmine Burch RN - 01/26/2021 1:51 PM EDT Infusion complete, no complications, IV out and dressing applied. Encouraged patient to call with any questions. Patient left unit with steady gait to private residence. documented [facility] this [facility]: 1(632) 789-526904-27-2021 History of Present illness Narrative* Radha Jara - 01/08/2021 5:59 PM EDT CLINICAL PHARMACY NOTE: MEDS TO [facility] Patient?: No Total # of Prescriptions Filled: 3 The following medications were delivered to the patient: Percocet 5-325mg Promethazine 25mg Pantoprazole 40mg Total # of Interventions Completed: 0 Time Spent (min): 0 Additional Documentation: delivered to patient in room 247 01/08 at 5:43pm. Co- pay paid with [employer] ($7.02). * Gal Atwood, DO - 01/08/2021 6:53 AM EDT General [...] OR 01-07-21 [facility] this [facility] Phone: [phone]) 773-877704-27-2021 Hospital Discharge instructions* Instructions* Gamaliel Vickers DO - 01/08/2021 Discharge Instructions for Surgery You had a Tian-en- Y Gastric Bypass (68151) surgery to treat obesity. Recovery from this [...] in one week. Follow up with Dr. Vickers in 1 week. If you don't already have a scheduled appointment, please call the office at [phone]. Call Your Doctor If Any of the [...] emergency, call 911 immediately. documented in this [facility] Phone: [phone]) 570-768504-12-2021 Hospital Discharge instructions* Instructions* Mahesh Price APRN - ELEVATOR INSPECTOR - 12/24/2020 Images from the original note [...] drive you home after your procedure. Your jinrikisha driver must be 18 years of age [...] questions, call the Pre-Admission Testing Unit at [phone]. Day of Surgery/Procedure As a patient at [facility] you can expect quality medical and nursing care that is centered on your individual needs. Our goal is to make your surgical experience as comfortableas possible . Directions to the Surgery Center [facility] is located at [address] [place] [address]. Please pull into the Emergency parking lot and stop at the [employer]. We offer free money order clerk service for all our surgery patients, if you choose not to have money order clerk parking we have additional parking across the street.You will enter the facility following the [facility] sign. Please stop at the hospital receptionist desk where you will be checked in by the staff. If you have any questions please call [phone]. Transportation after your procedure. You will need a friend or family member to drive you home after your procedure. Your jinrikisha driver must be18 years of age or [...] You may shave your face or neck. Norvell your teeth but do not swallow water. 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 Vickers Obesity Patient was evaluated in [facility] & anesthesia guidelines were applied. NPO guidelines, medication instructions and scheduled arrival time were reviewed with patient. Hx of anesthesia complications: No but reports extremely thirsty after Family hx of anesthesia complications: no Anesthesia contacted: no Medical or cardiac clearance ordered: PCP clearance pending, has appt this Thursday12/26/[address] Durand for this. Will request copy once available. MAHESH BLEVINS 12/24/20 11:38 AM documented in this [facility] [employer] Work Phone: evaluation + Plan note No data available for this section [facility] Evaluation + Plan note Referrals to Other Providers Referred by: Aimee Walker CNP [facility] Evaluation + Plan note Future Appointments Appointment Date:04/04/2022 02:40:00 PM Scheduled Provider:Rahul Salinas DO Location:[facility] Future Appointments Appointment Date:04/22/2022 09:15:00 AM Scheduled [facility]: [facility] Type:MA Diagnostic () Appointment Date:04/22/2022 10:00:00 AM Scheduled Provider: [facility] Type:US Breast (FT) Future Scheduled Tests Radiology* US Breast Unilateral Lt Complete 04/21/22 * US Breast Unilateral Rt Complete 04/21/22 * MA Mamm Diag w/CAD if perf and 3D Tanmay 04/22/22 * MA Mamm Screen w/CAD if perf and 3D [place]may 04/21/22 [facility] Evaluation + Plan note Future Appointments Appointment Date:08/22/2022 10:20:00 AM Scheduled Provider:Rahul Salinas DO Location:[facility] Appointment Type: Hospital Follow Up w/TCM Future Scheduled Tests Laboratory* CBC w/ Auto Diff 07/21/22 Radiology* MA Mamm Screen w/CAD if perf and 3D Tanmay 04/21/22 [facility] Future Appointments Appointment Date:11/03/2022 01:00:00 PM Scheduled Provider:Nakia Shah Location:[facility] Appointment Type: Open Future Scheduled Tests Laboratory* CBC w/ Auto Diff 07/21/22 Radiology* MA Mamm Screen w/CAD if perf and 3D Tanmay 04/21/22 [facility] Future Appointments Appointment Date:01/02/2023 10:00:00 AM Scheduled Provider:Nakia Shah Location:[facility] Appointment Type: Open Future Scheduled Tests Laboratory* CBC w/ Auto Diff 07/21/22 Radiology* MA Mamm Screen w/CAD if perf and 3D Tanmay 04/21/22 [facility] Evaluation + Plan note Future Appointments Appointment Date:12/05/2022 09:00:00 AM Scheduled Provider: Location:[facility] Appointment Type:Surgery FT Appointment Date:01/02/2023 10:00:00 AM Scheduled Provider:Nakia Shah Location:[facility] Appointment Type: Open Future Scheduled Tests Laboratory* CBC w/ Auto Diff 07/21/22 Radiology* MA Mamm Screen w/CAD if perf and 3D Tanmay 04/21/22 [facility] + Plan note Future Appointments Appointment Date:12/25/2023 10:15:00 AM Scheduled Provider:Otto Larsen MD Location[facility] Appointment Type:Cardiology New Patient (FT) [facility] note* Diagnosis Preop testing- Primary Preoperative examination, unspecified documented in this encounter [employer] Phone: [email or web address] note* Diagnosis Post-op pain- Primary Other acute postoperative pain Status post gastric bypass for obesity Bariatric surgery status Morbid obesity with BMI of 40.0-44.9, adult (HCC) Hiatal hernia Diaphragmatic hernia without mention of obstruction or gangrene documented in this encounter [employer] Phone: [email or web address] note* Diagnosis Dehydration documented in this encounter [employer] Phone: evaluation note* Diagnosis Generalized abdominal pain- Primary Abdominal pain, generalized documented in this encounter [employer] Phone: [email or web address] note* Diagnosis Surgery, elective- Primary Unspecified elective surgery for purposes other than remedying health states Omental infarction (HCC) Acute vascular insufficiency of intestine Intra-abdominal abscess (HCC) Peritoneal abscess documented in this encounter [employer] Phone: [email or web address] note* Diagnosis Omental infarction (HCC) Acute vascular insufficiency of intestine documented in this encounter [employer] Phone: evaluation note* Diagnosis Hypertrophy of breast- Primary Upper back pain Excess skin documented in this encounter [facility] note* Diagnosis Burning tongue- Primary Glossodynia Irritation of oral cavity Other and unspecified diseases of the oral soft tissues documented in this encounter [facility] note* Diagnosis Onset Date Resolution Status Bipolar 1 disorder acute Blurry vision acute Borderline personality disorder acute Headache acute MDD (major depressive disorder) acute Palpitation acute [facility] [employer] Work Phone: Evaluation note* Diagnosis Idiopathic intracranial hypertension- Primary Benign intracranial hypertension Depression, unspecified depression type Primary hypertension Unspecified essential hypertension Hx of gastric bypass Bariatric surgery status H/O foot surgery Personal history of surgery to other organs documented in this encounter [facility] noteNo assessment information availableMer[facility] Work Phone: Evaluation noteNo [facility] [employer] Other Evaluation note* Diagnosis Panic disorder- Primary Panic disorder without agoraphobia Borderline personality disorder (HCC) Borderline personality disorder Bipolar affective disorder in remission (HCC) Chronic alcoholism in remission (HCC) Other and unspecified alcohol dependence, in remission Routine health maintenance Routine general medical examination at a health care facility [facility]* Diagnosis Panic disorder- Primary Panic disorder without agoraphobia [facility]* Diagnosis Routine health maintenance- Primary Routine [...] disorder, unspecified type [facility] this [facility]* Diagnosis 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 documented in this encounter [facility]* Diagnosis Idiopathic intracranial hypertension Benign intracranial hypertension documented [facility] this [facility]* Diagnosis Chest pain, unspecified type- Primary Palpitations Bipolar affective disorder in remission (HCC) History of substance abuse (HCC) Other, mixed, or unspecified nondependent drug abuse, unspecified Borderline personality disorder (HCC) Borderline personality disorder Serum calcium elevated Hypercalcemia documented [facility] this [facility]* Diagnosis Mass of upper outer quadrant of left breast documented [facility] this [facility]* Diagnosis Abnormal mammogram- Primary Abnormal mammogram, unspecified Mass of upper outer quadrant of left breast Fibrocystic breast changes of both breasts Mastodynia Inversion of left nipple Bloody discharge from left nipple Other sign and symptom in breast Nipple discharge Other sign and symptom in breast Mass of upper outer quadrant of left breast documented [facility] this encounter [facility]* Diagnosis Abnormal mammogram of left breast documented in this encounter [facility] note* Diagnosis Bipolar affective disorder in remission (HCC)- Primary Borderline personality disorder (HCC) Borderline personality disorder Anxiety disorder, unspecified type Chest pain, unspecified type Iron deficiency anemia, unspecified iron deficiency anemia type documented in this encounter [facility] note* Diagnosis Angina pectoris Other and unspecified angina pectoris Shortness of breath Palpitations Family history of ischemic heart disease Primary hypertension Unspecified essential hypertension Current smoker BMI 29.0-29.9,adult documented in this encounter [facility] Work Phone: Evaluation note* Diagnosis Bipolar affective disorder in remission (HCC) Borderline personality disorder (HCC) Borderline personality disorder Anxiety disorder, unspecified type documented in this encounter [facility] general Narrative - Reported* Type Description Date Medical History plantar fasciitis Medical History migraine headache Medical History borderline personality disorder Medical History chronic depression Medical History bipolar Surgical History C section Surgical History c section Surgical History tubal ligation Surgical History HYSTERECTOMY Surgical History oral surgery Surgical History gastric bypass Hospitalization History mental health issues [facility] Other [facility] general Narrative - Reported* Type Description Date Medical History plantar fasciitis Medical History migraine headache Medical History borderline personality disorder Medical History chronic depression Medical History bipolar Surgical History C section Surgical History c section Surgical History tubal ligation Surgical History HYSTERECTOMY Surgical History oral surgery Surgical History gastric bypass Hospitalization History mental health issues Hospitalization History [facility] - hysterectomy / 0[address] [facility] Other Hospital Discharge instructions No data available for this section [facility] Progress note No data available for this section [facility] Outpatient Procedure (Routine) - New Request Specialty Diagnoses / Procedures Referred By Contac t Referred To Contact [facility] Diagnoses Chest pain, unspecified type Palpitations Procedures ECG COMPLETE ECG ROUTINE ECG W/LEAST 12 LDS W/I&[place] [address] [place] [address] [facility] [address] [place] [address] Referral ID Status Reason Start Date Expiration Date Visits Requested Visits Authorized [id number] New Request Auto-Generat ed Referral 07/01/2025 [address] [facility] for referral (narrative)* Diagnostic Procedure Only (Routine) - Closed Specialty Diagnoses / Procedures Referred By Contac t Referred To Contact BR IMAGING Diagnoses Abnormal mammogram of left breast Procedures US BIOPSY BREAST LEFT BX BREAST W/DEVICE 1ST LESION ULTRASOUND GUID Abi Asif MD [address] [address] Br Imaging [address] [place] [address] Referral ID Status Reason Start Date Expiration Date V isits Requested Visits Authorized [id number] Closed Auto-Generate d Referral 07/05/2024 08/04/2025 [address] [facility] for visit Narrative* Diagnostic Procedure Only (Routine) - Closed Specialty Diagnoses / Procedures Referred By Contac t Referred To Contact BR IMAGING Diagnoses Abnormal mammogram of left breast Procedures US BIOPSY BREAST LEFT BX BREAST W/DEVICE 1ST LESION ULTRASOUND GUID Abi Asif MD [address] [address] [facility] Imaging [address] [place] [address] Referral ID Status Reason Start Date Expiration Date V isits Requested Visits Authorized [id number] Closed Auto-Generate d Referral 07/05/2024 08/04/2025 [address] [facility] for visit Narrative* Cardiovascular (Routine) - Authorized Specialty Diagnoses / Procedures Referred By Contac t Referred To Contact Cardiology Diagnoses Angina pectoris Shortness of breath Procedures ECG 12 Lead Aleah Howard MD [address] [address] Phone: tel: fax: Referral ID Status Reason Start Date Expiration Date V isits Requested Visits Authorized [id number] Authorized 08/08/2024 08/08/2025 1 1 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 ACTIVITY No [...] questions, PLEASE call your doctor or the [facility] Weight Management center at documented in this encounter Reason for Referral Status Reason Specialty Diagnoses / Procedures Referre d By Contact Referred To Contact Closed Radiology Diagnoses Omental infarction (HCC) Procedures CT ABDOMEN PELVIS W IV CONTRAST Additional Contrast? Oral Gamaliel Vickers, [address] [facility] [address] [place] [address] Specialty Diagnoses / Procedures Referred By Simona bailey Referred To Contact Ophthalmology Diagnoses Idiopathic intracranial hypertension Procedures CONSULT TO OPHTHALMOLOGY OFFICE/OUTPATIENT [facility] 60-74 MINUTES Eileen Alvarez MD [address] [place] [address] Referral ID Status Reason Start Date Expiration Date Visits Requested Visits Authorized [id number] Authorized PCP Requested Referral 11/20/2022 11/20/2023 1 1 Specialty Diagnoses / Procedures Referred By Simona bailey Referred To Contact MR IMAGING Diagnoses Idiopathic intracranial hypertension Procedures MRV BRAIN WO/W IVCON MRA; HEAD W & WO CONTRAST Eileen Alvarez MD [address] [facility] [place] [place] [address] Mr Imaging Referral ID Status Reason Start Date Expiration Date Visits Requested Visits Authorized [id number] Pending Review Auto-Generat ed Referral 11/20/2022 12/20/2023 1 1 Specialty Diagnoses / Procedures Referred By Rafac t Referred To Contact MR IMAGING Diagnoses Mass of upper outer quadrant of left breast Procedures MRI BREAST BX WO/W IVCON LEFT BX BREAST W/DEVICE 1ST [place] [address] [place] [address] Mr [place] [facility] Referral ID Status Reason Start Date Expiration Date Visits Requested Visits Authorized [id number] Pending Review Auto-Generat ed Referral 03/08/2024 04/07/2025 1 1 Specialty Diagnoses / Procedures Referred By Simona t Referred To Contact Diagnoses Class 1 obesity due to excess calories without serious comorbidity with body mass index (BMI) of 30.0 to 30.9 in adult Procedures ENDOCRINE MEDICAL WEIGHT MANAGEMENT OFFICE/OUTPATIENT [facility] [address] [place] [address] [place] [address] Referral ID Status Reason Start Date Expiration Date Visits Requested Visits Authorized [id number] Authorized PCP Requested Referral 03/08/2024 03/08/2025 1 1 Specialty Diagnoses / Procedures Referred By Simona t Referred To Contact MR IMAGING Diagnoses Pancreas cyst Procedures MRI 3D POST PROCESSING 3D RENDERING W/INTERP&POSTPROC DIFF WORK STATION Leonela Aguirre MD [address] [place] [address] Mr Imaging [place] [address] Referral ID Status Reason Start Date Expiration Date V isits Requested Visits Authorized [id number] Closed Auto-Generate d Referral 08/31/2023 09/29/2024 1 1 Specialty Diagnoses / Procedures Referred By Rafac t Referred To Contact MR IMAGING Diagnoses Pancreas cyst Procedures MRI PANC/TANMAY WO/W IVCON MRI ABDOMEN W/O & W/CONTRAST MATERIAL Leonela Aguirre MD [address] [place] [address] Mr Imaging [place] [facility] Referral ID Status Reason Start Date Expiration Date V isits Requested Visits Authorized [id number] Closed Auto-Generate d Referral 03/01/2024 03/31/2024 1 1 Specialty Diagnoses / Procedures Referred By Contac t Referred To Contact MR IMAGING Diagnoses Idiopathic intracranial hypertension Procedures MRV BRAIN WO/W IVCON MRA; HEAD W & WO CONTRAST Eileen Alvarez MD [address] [place] [id number] Mr Imaging [place] [address] Referral ID Status Reason Start Date Expiration Date V isits Requested Visits Authorized [id number] Closed Auto-Generate d Referral 01/29/2023 02/28/2023 1 1 Specialty Diagnoses / Procedures [facility] Referred To Contact MR IMAGING Diagnoses Mass of upper outer quadrant of left breast Fibrocystic breast changes of both breasts Mastodynia Inversion of left nipple Bloody discharge from left nipple Nipple discharge Procedures MRI BREAST WO/W IVCON BILATERAL MRI BREAST WITHOUT&WITH CONTRAST W/CAD BILATERAL Fatuma Tyler APRN.ELEVATOR INSPECTOR [address] [place] [id number] Mr Imaging [place] [address] Referral ID Status Reason Start Date Expiration Date Visits Requested Visits Authorized [id number] Pending Review Auto-Generat ed Referral 08/03/2025 1 1 Specialty Diagnoses / Procedures Referred By Simona bailey Referred To Contact BR IMAGING Diagnoses Mass of upper outer quadrant of left breast Procedures US BREAST LTD LEFT US BREAST UNI REAL TIME WITH IMAGE LIMITED Fatuma Tyler APRN.ELEVATOR INSPECTOR [address] [place] [address] Br Imaging [address] [place] [address] Referral ID Status Reason Start Date Expiration Date V isits Requested Visits Authorized [id number] Closed Auto-Generate d Referral 07/04/2024 09/13/2024 1 1 Specialty Diagnoses / Procedures Referred By Simona bailey Referred To Contact BR IMAGING Diagnoses Mass of upper outer quadrant of left breast Procedures LINDA DIAG W AV BILATERAL DIGITAL BREAST TOMOSYNTHESIS BILATERAL Fatuma Tyler APRN.ELEVATOR INSPECTOR [address] [place] [address] Br Imaging [address] [place] [address] Referral ID Status Reason Start Date Expiration Date V isits Requested Visits Authorized [id number] Closed Auto-Generate d Referral 07/04/2024 09/13/2024 1 1 Chief Complaint and Reason for [...] and content) DATE CREATED AUTHOR 10/06/2020 [employer] DATE CREATED AUTHOR AUTHOR'S ORGANIZ ATION 01/06/2021 [facility] DATE CREATED AUTHOR AUTHOR'S ORGANIZ ATION 08/16/2022 [facility] DATE CREATED AUTHOR AUTHOR'S ORGANIZ ATION 11/15/2022 [facility] DATE CREATED AUTHOR AUTHOR'S ORGANIZ ATION 08/17/2023 [facility] DATE CREATED AUTHOR AUTHOR'S ORGANIZ ATION 09/04/2023 [facility] DATE CREATED AUTHOR AUTHOR'S ORGANIZ ATION 10/26/2023 [facility] DATE CREATED AUTHOR AUTHOR'S ORGANIZ ATION 01/14/2024 [facility] DATE CREATED AUTHOR AUTHOR'S ORGANIZ ATION 03/12/2024 [facility] DATE CREATED AUTHOR AUTHOR'S ORGANIZ ATION 05/21/2024 [facility] DATE CREATED AUTHOR AUTHOR'S ORGANIZ ATION 08/26/2024 [facility] DATE CREATED AUTHOR AUTHOR'S ORGANIZ ATION 08/27/2024 [facility] DATE CREATED AUTHOR AUTHOR'S ORGANIZ ATION 08/29/2024 [facility] Reason for Visit (unrecogniz ed section and content) Status Reason Specialty Diagnoses / Procedures Re ferred By Contact Referred To Contact Diagnoses GERD (gastroesophageal reflux disease) GERD/OBESITY Procedures WY ESOPHAGOGASTRODUODENOSCOPY TRANSORAL DIAGNOSTIC EGD ESOPHAGOGASTRODUODENOSCOPY Gamaliel Vickers DO [address] [place] [phone] [employer] Status Reason Specialty Diagnoses / Procedures Referre d By Contact Referred To Contact Closed Radiology Diagnoses Gastro-esophageal reflux disease with esophagitis, without bleeding Procedures CHG RADIOLOGIC EXAM UPR GI TRC SINGLE CONTRAST STUDY Gamaliel Vickers DO [address] [place] [address] [facility] [address] [place] [id number] Status Reason Specialty Diagnoses / Procedures Referre d By Contact Referred To Contact Diagnoses Morbid obesity (HCC) GERD (gastroesophageal reflux disease) MORBID OBESITY, GERD Procedures WY LAP GASTRIC BYPASS/TIAN-EN-Y XI LAPAROSCOPIC ROBOTIC GASTRIC BYPASS TIAN-EN-Y, LIVER BIOPSY, EGD- GI UNIT SCHEDULED. Gamaliel Vickers DO [address] [place] [phone] [employer] Reason Comments Abdominal Pain Diffuse cramping and bloating. Onset 2 days ago. Pt reports she is 3.5weeks post Gastric bypass. Last BM this AM Reason Comments Abdominal Pain possible abscess Status Reason Specialty Diagnoses / Procedures Referre d By Contact Referred To Contact Diagnoses Intra-abdominal abscess (HCC) Omental infarction (HCC) Gamaliel Vickers DO [address] [place] [address] [employer] Status Reason Specialty Diagnoses / Procedures Referre d By Contact Referred To Contact Closed Radiology Diagnoses Omental infarction (HCC) Procedures CT ABDOMEN PELVIS W IV CONTRAST Additional Contrast? Oral Gamaliel Vickers DO [address] [facility] [address] [place] [address] Reason Comments Orders Reason Comments Patient Question Appointment Reason Comments Mouth Sores blood in the back of throat Reason Comments Scheduling Reason Comments Appointment Reason Comments Headache Reason Comments Refill Request Specialty Diagnoses / Procedures [facility] Referred To Contact Diagnoses Gastroesophageal reflux disease, unspecified whether esophagitis present Obesity (BMI 30-39.9) Gastroesophageal reflux disease, unspecified whether esophagitis present [K21.9] Obesity (BMI 30-39.9) [E66.9] Procedures WY EGD TRANSORAL BIOPSY SINGLE/MULTIPLE WY ESOPHAGOGASTRODUODENOSCOPY TRANSORAL DIAGNOSTIC WY EGD BALLOON DILATION ESOPHAGUS <30 MM DIAM EGD BIOPSY Gamaliel Vickers DO [address] [facility] [address] [place] [address] [facility] [address] [place] [address] Referral ID Status Reason Start Date Expiration Date Visits Re quested Visits Authorized [id number] 1 1 Reason Comments Establish Care Panic attacks , SOB ( Chest tightness ) Reason Comments Physical Gastric by pass surg luis 3 yrs ago and wants to talk about how to help with weight loss.Rash on right upper thigh. Reason Comments Radiology MRI Specialty Diagnoses / Procedures [facility] Referred To Contact MR IMAGING Diagnoses Pancreas cyst Procedures MRI PANC/TANMAY WO/W IVCON MRI ABDOMEN W/O & W/CONTRAST MATERIAL Leonela Aguirre MD [address] [place] [address] [place] [address] Referral ID Status Reason Start Date Expiration Date V isits Requested Visits Authorized [id number] Closed Auto-Generate d Referral 03/01/2024 03/31/2024 1 1 Reason Onset Date Comments ACM EDYTA RN 05/30/2024 ED Utilizatio n review per request of payer Specialty Diagnoses / Procedures [facility] Referred To Contact MR IMAGING Diagnoses Idiopathic intracranial hypertension Procedures MRV BRAIN WO/W IVCON MRA; HEAD W & WO CONTRAST Eileen Alvarez MD [address] [place] [address] [place] [address] Referral ID Status Reason Start Date Expiration Date V isits Requested Visits Authorized [id number] Closed Auto-Generate d Referral 01/29/2023 02/28/2023 1 1 Reason Comments Establish Care Anxiety is getting b ad On/off chest pain ,Rapid HR, trouble in sleeping, body aches, BP elevated , light headed dizzy, blurry vision, trouble eating or drinking can't stop eating Reason Comments Radiology Mammogram Specialty Diagnoses / Procedures Referred By Simona bailey Referred To Contact BR IMAGING Diagnoses Mass of upper outer quadrant of left breast Procedures LINDA DIAG W AV BILATERAL DIGITAL BREAST TOMOSYNTHESIS BILATERAL Fatuma Tyler, SKI LIFT OPERATOR.ELEVATOR INSPECTOR [address] [place] [address] Br Imaging [address] [place] [address] Referral ID Status Reason Start Date Expiration Date V isits Requested Visits Authorized [id number] Closed Auto-Generate d Referral 07/04/2024 09/13/2024 1 1 Reason Comments New Patient Left breast lump and pain for over a year; pt feels that the lump has increased in size over the years; she did experience blood nipple discharge and is not sure how long this has been going on; lump is close to axilla; pain at the site of the lump with no redness or signs of infection; left nipple will invert and she is able to pull it back out; she also c/o dark spots under her breast Reason Comments Results Appointment Reason Comments Anxiety Depression Reason Comments ER F/U Feels same Reason Comments Med Change Request Reason Onset Date Comments ACM EDYTA RN 08/25/2024 ED Utilizatio n Review per request of payor Ordered Prescriptions (unrec ognized section and content) [...] 1131 (New Bag - Prov ider: Jasmine Burch, RN)1345 (Stopped - Provider: Jasmine Burch, RN) Scheduled Medication Order 01/28/2021 01/29/2021 01/30/2021 morphine (PF) injection 2 mg (COMPLETED) 2 mg, Intravenous, ONCE, On 01/30/21 at 1015, For 1 dose, If oral [...] 1 dose 1142 (Given - Provid er: [facility]) iopamidol (ISOVUE-370) 76 % injection 75 mL (COMPLETED) 75 mL, Intravenous, IMG ONCE PRN, Other, Starting on Thu01/30/21 at 1137, For 1 dose 1142 (Given - Provid er: [facility]) Scheduled Medication Order 01/30/2021 01/31/2021 02/01/2021 0.9 % sodium chloride bolus (COMPLETED) 1,000 mL (8.96 mL/kg), Intravenous, at 1,000 mL/hr, Administer over 1 Hours, ONCE, On Thu01/30/21 at 1715, For 1 dose 1708 (New Bag - Provider: Orlando Guevara, RN)1901 (Stopped - Provider: Orlando Guevara, RN) enoxaparin (LOVENOX) injection 40 mg [...] specifically ordered. 1707 (Given - Provider: Orlando Guevara, MARCO) fentaNYL (SUBLIMAZE) injection 50 mcg [...] Palacios RN)0635 (New Bag - Provider: Heather Palacios, MARCO)0940 (Stopped - Provider: Wei Carter, MARCO)1257 (New Bag - Provider: Wei Carter RN)1632 (Stopped - Provider: Wei Carter RN)2032 (New Bag - Provider: Rita Klein RN) 0030 (Stopped - Provider: Rita Klein RN)0559 (New Bag - Provider: Rita Klein RN)0959 (Due: Stopped - Provider: Rita Klein RN)1315 (Due)5 (Due) sodium chloride flush 0.9 % injection [...] at 2157 0939 (Given - Provider: Wei Carter, RN)1424 (Given - Provider: Wei Carter, RN)1921 (Given - Provider: Rita Klein, MARCO) [...] Wei Carter, MARCO)1921 (Given - Provider: Rita Klein RN) 0404 [...] or prosecute any alcohol or drug abuse patient.[facility] the event this information is protected by the Federal Confidentiality of Alcohol and Drug Abuse Patient Records regulations: The Federal rules restrict any use of the information to criminally investigate or prosecute any alcohol or drug abuse patient.[facility] NorthIn the event this information is protected by the Federal Confidentiality of Alcohol and Drug Abuse Patient Records regulations: The Federal rules restrict any use of the information to criminally investigate or prosecute any alcohol or drug abuse patient.[facility] NorthIn the event this information is protected by the Federal Confidentiality of Alcohol and Drug Abuse Patient Records regulations: The Federal rules restrict any use of the information to criminally investigate or prosecute any alcohol or drug abuse patient.[facility] NorthIn the event this information is protected by the Federal Confidentiality of Alcohol and Drug Abuse Patient Records regulations: The Federal rules restrict any use of the information to criminally investigate or prosecute any alcohol or drug abuse patient.[facility] NorthIn the event this information is protected by the Federal Confidentiality of Alcohol and Drug Abuse Patient Records regulations: The Federal rules restrict any use of the information to criminally investigate or prosecute any alcohol or drug abuse patient.[facility] NorthIn the event this information is protected by the Federal Confidentiality of Alcohol and Drug Abuse Patient Records regulations: The Federal rules restrict any use of the information to criminally investigate or prosecute any alcohol or drug abuse patient.[facility] NorthIn the event this information is protected by the Federal Confidentiality of Alcohol and Drug Abuse Patient Records regulations: The Federal rules restrict any use of the information to criminally investigate or prosecute any alcohol or drug abuse patient.[facility] NorthIn the event this information is protected by the Federal Confidentiality of Alcohol and Drug Abuse Patient Records regulations: The Federal rules restrict any use of the information to criminally investigate or prosecute any alcohol or drug abuse patient.[facility] NorthIn the event this information is protected by the Federal Confidentiality of Alcohol and Drug Abuse Patient Records regulations: The Federal rules restrict any use of the information to criminally investigate or prosecute any alcohol or drug abuse patient.[facility] NorthIn the event this information is protected by the Federal Confidentiality of Alcohol and Drug Abuse Patient Records regulations: The Federal rules restrict any use of the information to criminally investigate or prosecute any alcohol or drug abuse patient.[facility] NorthIn the event this information is protected by the Federal Confidentiality of Alcohol and Drug Abuse Patient Records regulations: The Federal rules restrict any use of the information to criminally investigate or prosecute any alcohol or drug abuse patient.[facility] NorthIn the event this information is protected by the Federal Confidentiality of Alcohol and Drug Abuse Patient Records regulations: The Federal rules restrict any use of the information to criminally investigate or prosecute any alcohol or drug abuse patient.[facility] NorthIn the event this information is protected by the Federal Confidentiality of Alcohol and Drug Abuse Patient Records regulations: The Federal rules restrict any use of the information to criminally investigate or prosecute any alcohol or drug abuse patient.[facility] NorthIn the event this information is protected by the Federal Confidentiality of Alcohol and Drug Abuse Patient Records regulations: The Federal rules restrict any use of the information to criminally investigate or prosecute any alcohol or drug abuse patient.[facility] NorthIn the event this information is protected by the Federal Confidentiality of Alcohol and Drug Abuse Patient Records regulations: The Federal rules restrict any use of the information to criminally investigate or prosecute any alcohol or drug abuse patient.[facility] NorthIn the event this information is protected by the Federal Confidentiality of Alcohol and Drug Abuse Patient Records regulations: The Federal rules restrict any use of the information to criminally investigate or prosecute any alcohol or drug abuse patient.[facility] NorthIn the event this information is protected by the Federal Confidentiality of Alcohol and Drug Abuse Patient Records regulations: The Federal rules restrict any use of the information to criminally investigate or prosecute any alcohol or drug abuse patient.[facility] the event this information is protected by the Federal Confidentiality of Alcohol and Drug Abuse Patient Records regulations: The Federal rules restrict any use of the information to criminally investigate or prosecute any alcohol or drug abuse patient.[facility] NorthIn the event this information is protected by the Federal Confidentiality of Alcohol and Drug Abuse Patient Records regulations: The Federal rules restrict any use of the information to criminally investigate or prosecute any alcohol or drug abuse patient.[facility] NorthIn the event this information is protected by the Federal Confidentiality of Alcohol and Drug Abuse Patient Records regulations: The Federal rules restrict any use of the information to criminally investigate or prosecute any alcohol or drug abuse patient.[facility] NorthIn the event this information is protected by the Federal Confidentiality of Alcohol and Drug Abuse Patient Records regulations: The Federal rules restrict any use of the information to criminally investigate or prosecute any alcohol or drug abuse patient.[facility] NorthIn the event this information is protected by the Federal Confidentiality of Alcohol and Drug Abuse Patient Records regulations: The Federal rules restrict any use of the information to criminally investigate or prosecute any alcohol or drug abuse patient.[facility] NorthIn the event this information is protected by the Federal Confidentiality of Alcohol and Drug Abuse Patient Records regulations: The Federal rules restrict any use of the information to criminally investigate or prosecute any alcohol or drug abuse patient.[facility] NorthIn the event this information is protected by the Federal Confidentiality of Alcohol and Drug Abuse Patient Records regulations: The Federal rules restrict any use of the information to criminally investigate or prosecute any alcohol or drug abuse patient.[facility] NorthIn the event this information is protected by the Federal Confidentiality of Alcohol and Drug Abuse Patient Records regulations: The Federal rules restrict any use of the information to criminally investigate or prosecute any alcohol or drug abuse patient.[facility] NorthIn the event this information is protected by the Federal Confidentiality of Alcohol and Drug Abuse Patient Records regulations: The Federal rules restrict any use of the information to criminally investigate or prosecute any alcohol or drug abuse patient.[facility] NorthIn the event this information is protected by the Federal Confidentiality of Alcohol and Drug Abuse Patient Records regulations: The Federal rules restrict any use of the information to criminally investigate or prosecute any alcohol or drug abuse patient.[facility] Care Team (unrecognized sect ion and content) Team Status: Inactive Member Role Status Dates Jennie Durand , DO Primary Care Provider Active Sangeetha [...] Status: Active Member Role Status Dates Jennie Durand , DO Primary Care Provider Active Team Status: Inactive Member Role Status Dates Jennie Durand , DO Primary Care Provider Active Sangeetha Peña MD Admit Provider Active Lindy Hdz Other Provider Active Krystal Romo , DO Other Provider Active Carolyne Schilling MD Other Provider Active Jamie Larsen , DO Referring Provider, Other Pr ovider Active Dorita Niño ANP-BC Other Provider Active Kenrick Lee , DO Other Provider Active Shasta Zaragoza APRN Other Provider Active Danielle Smith SPOOL SALVAGER-C Other Provider Active Lizzeth Malave MD Attending Provider Active Team Status: Inactive Member Role Status Dates Jennie Durand , DO Primary Care Provider Active Dorita Niño ANP-BC Attending Provider Active Team Status: Inactive Member Role Status Dates Jennie Durand , DO Primary Care Provider Active Jose Maria Nair , DO Emergency Provider Active Team Status: Inactive Member Role Status Dates Jennie Durand , DO Primary Care Provider Active Yoli Norris MD Emergency Provider Active Sleep Technician Relationship Specialty Start Date End Date Jennie Durand DO [facility] [place] [id number] PCP - General Family Medicine 11/19/22 Team Status: Inactive Member Role Status Dates Jennie Durand , Primary Care Provider Active S tart: December 10, 2023 End: December 10, 2023 Marii Christiansen MD Emergency Provider Active Start: December 10, 2023 End: December 10, 2023 Team Status: Inactive Member Role Status Dates Jennie Durand , Primary Care Provider Active S tart: December 24, 2023 End: December 24, 2023 Jose Maria Nair DO Emergency Provider Active St art: December 24, 2023 End: December 24, 2023 Team Status: Inactive Member Role Status Dates Jennie Durand , Primary Care Provider Active S tart: December 31, 2023 End: December 31, 2023 Kenny Javed APRN Emergency Provider Active Start: December 31, 2023 End: December 31, 2023 Sleep Technician Relationship Specialty [place] [address] [place] [address] PCP - General Family Medicine 01/04/24 Nilo Prado MD [address] [place] [address] Referring Gastroenterology 08/17/23 Sleep Technician Relationship Specialty [place] [address] [place] [address] PCP - General Family Medicine 01/04/24 Nilo Prado MD [address] [place] [address] Referring Gastroenterology 08/17/23 Sleep Technician Relationship Specialty [place] [address] [place] [address] PCP - General Family Medicine 01/04/24 Nilo Prado MD [address] [place] [address] Referring Gastroenterology 08/17/23 Sleep Technician Relationship Specialty [place] [address] [place] [address] PCP - General Family Medicine 01/04/24 Nilo Prado MD [address] [place] [address] Referring Gastroenterology 08/17/23 Sleep Technician Relationship Specialty [place] [address] [place] [address] PCP - General Family Medicine 01/04/24 Nilo Prado MD [address] [place] [address] Referring Gastroenterology 08/17/23 Sleep Technician Relationship Specialty [place] [address] [place] [address] PCP - General Family Medicine 05/30/24 Nilo Prado MD [address] [place] [address] Referring Gastroenterology 08/17/23 Sleep Technician Relationship Specialty [place] [address] [place] [address] PCP - General Family Medicine 05/30/24 Nilo Prado MD [address] [place] [address] Referring Gastroenterology 08/17/23 Sleep Technician Relationship Specialty [place] [address] [place] [address] PCP - General Family Medicine 05/30/24 Nilo Prado MD [address] [place] [address] Referring Gastroenterology 08/17/23 Sleep Technician Relationship Specialty [place] [address] [place] [address] PCP - General Family Medicine 05/30/24 Nilo Prado MD [address] [place] [address] Referring Gastroenterology 08/17/23 Sleep Technician Relationship Specialty Start Date End Date Tevin Carson [address] [place] [address] PCP - General Family Medicine 05/30/24 Nilo Prado MD [address] [place] [address] Referring Gastroenterology 08/17/23 Sleep Technician Relationship Specialty Start [place]evin CarsonDO [address] [place] [address] PCP - General Family Medicine 05/30/24 Nilo Prado MD [address] [place] [address] Referring Gastroenterology 08/17/23 Sleep Technician Relationship Specialty Start Date End Date Tevin Carson [address] [place] [address] PCP - General Family Medicine 05/30/24 Nilo Prado MD [address] [place] [address] Referring Gastroenterology 08/17/23 Sleep Technician Relationship Specialty Start [place] [address] [place] [address] PCP - General Family Medicine 05/30/24 Nilo Prado MD [address] [place] [address] Referring Gastroenterology 08/17/23 Sleep Technician Relationship Specialty Start Date End Date Tevin Carson [address] [place] [address] PCP - General Family Medicine 05/30/24 Nilo Prado MD [address] [place] [address] Referring Gastroenterology 08/17/23 Sleep Technician Relationship Specialty Start [place] [address] [place] [address] PCP - General Family Medicine 05/30/24 Nilo Prado MD [address] [place] [address] Referring Gastroenterology 08/17/23 Sleep Technician Relationship Specialty Start [place] [address] [place] [address] PCP - General Family Medicine 05/30/24 Nilo Prado MD [address] [place] [address] Referring Gastroenterology 08/17/23 Sleep Technician Relationship Specialty [place] [address] [place] [address] PCP - General Family Medicine 05/30/24 Nilo Prado MD [address] [place] [address] Referring Gastroenterology 08/17/23 [place] [address] [place] [address] [facility] 08/22/24 Sleep Technician Relationship Specialty Start Date End Date Tevin Carson [address] [place] [address] PCP - General Family Medicine 05/30/24 Nilo Prado MD [address] [place] [address] Referring Gastroenterology 08/17/23 [place] [address] [place] [address] [facility] 08/22/24 Goals (unrecognized section and content) Goals may [...] BE BASED ON THE PRIMARY CLINICAL RECORDS. [facility] [employer] provides no warranty or guarantee of the accuracy or completeness of information in this document.
--- NOTE | 2024-09-11 09:33 | ED.GENADUL1 ---
HPI HPI - General Adult General Stated complaint: ABDOMINAL PAIN, FATIGUE, BREATHING HEAVY Time Seen by Provider: 09/11/24 09:20 Source: patient Mode of arrival: walk-in Limitations: no limitations History of Present Illness HPI narrative: This patient is here for very nonspecific symptomatology. I did review her previous medical records from here before eval waiting for she has had approximately 13 visits already this year. She is under the care of numerous specialist and is scheduled to have more diagnostic testing this week and she is being managed by specialist at the [facility]. She says she has not been drinking over the holidays. 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 She did does not have any short breath nausea or vomiting are negative her vital signs as noted are perfect here. She just wanted to come in and get tested for COVID at the end of the day. Related Data Home Medications ?Medication ?Instructions ?Recorded ?Confirmed duloxetine 60 mg capsule,delayed 60 mg PO BID 06/10/23 07/22/24 release lamotrigine 25 mg tablet 25 mg PO TID 04/08/24 07/22/24 Previous Rx's ?Medication ?Instructions ?Recorded citalopram 20 mg tablet (Celexa) 20 mg PO DAILY #30 tabs 07/22/24 Allergies Allergy/AdvReac Type Severity Reaction Status Date / Time buspirone (From BuSpar) Allergy Intermediate tachycardia Verified 08/15/24 14:56 aripiprazole (From Abilify) Allergy Unknown Verified 08/15/24 14:56 COCONUT Allergy Mild Hives Uncoded 08/15/24 14:56 Opioid HPI Opioid Management Most Recent Opioid Data: Last Pain Scale 2 10/14/23 15:35 10/14/23 Ur Phencyclidine Scrn Negative (NEGATIVE) 07/22/24 13:51 07/22/24 PFSH PFSH Social History Smoking status: Current every day smoker Little interest or pleasure in doing things: not at all Feeling down, depressed, or hopeless: not at all Exam Narrative Exam Narrative: Awake alert [place] x 3 moderately anxious vital signs are stable no respiratory distress. Lungs were completely clear with no wheeze rales or rhonchi. She does smoke 1 pack of cigarettes a day. Legs do not have any peripheral edema phlebitis erythema or cellulitis. Heart sounds are normal with no clicks rubs gallops or murmurs. Neurological examination is normal. She has no abdominal pain or discomfort. Cognition and mental status are essentially normal Constitutional Vital Signs, click to edit/add: Last Vital Signs Temp 98.7 F 09/11/24 08:57 Pulse 87 09/11/24 08:57 Resp 18 09/11/24 08:57 BP 122/86 09/11/24 08:57 Pulse Ox 97 09/11/24 08:57 O2 Del Method Room Air 09/11/24 08:57 Course Vital Signs Vital signs: Vital Signs Temperature 98.7 F 09/11/24 08:57 Pulse Rate 87 09/11/24 08:57 Respiratory Rate 18 09/11/24 08:57 Blood Pressure 122/86 09/11/24 08:57 Pulse Oximetry 97 09/11/24 08:57 Oxygen Delivery Method Room Air 09/11/24 08:57 Temperature 98.7 F 09/11/24 08:57 Pulse Rate 87 09/11/24 08:57 Respiratory Rate 18 09/11/24 08:57 Blood Pressure 122/86 09/11/24 08:57 Pulse Oximetry 97 09/11/24 08:57 Oxygen Delivery Method Room Air 09/11/24 08:57 Medical Decision Making MDM Narrative Medical decision making narrative: this patient did not wait for lab and left AWOL. Discharge Plan Discharge Patient Disposition: Left Without Being Seen Discharge Date/Time: 09/11/24 10:01
== END 2024-09-11 10:01 | disposition left against medical advice (07) ==
LOC: ER 09:03
PROVIDERS: Emergency Provider Emergency Medicine Emergency Medical Services
DX: Z53.29 Procedure and treatment not carried out because of patient's decision for other reasons (principal); Z20.822 Contact with and (suspected) exposure to COVID-19; F17.210 Nicotine dependence, cigarettes, uncomplicated
CPT/HCPCS: 87811; 99283

== ENCOUNTER 2024-09-21 12:16 | Outpatient (OUT) | payer MEDICARE, MEDICAID, SELFPAY ==
[2024-09-21 13:17] LABS: Myoglobin 33 ng/mL (9-82); Thyroid Stimulating Hormone 1.268 uIU/mL (0.358-3.740)
[2024-09-23 09:11] LABS: Antinuclear Antibodies, IFA Negative (.)
== END 2024-09-21 12:17 | disposition home or self-care (01) ==
LOC: LAB 12:19
PROVIDERS: Visit Provider Psychiatry & Neurology Neurology
DX: M79.10 Myalgia, unspecified site (principal)
CPT/HCPCS: 36415; 83874; 84443; 86038

== ENCOUNTER 2024-11-25 10:10 | Emergency (ER) | payer MEDICARE, MEDICAID, SELFPAY ==
[2024-11-25 10:20] VITALS: BP 125/83; PULSE 97; TEMP 36.6; O2SAT 98; BMI 34.5
== END 2024-11-25 11:42 | disposition left against medical advice (07) ==
PROVIDERS: Emergency Provider Emergency Medicine
DX: Z53.21 Procedure and treatment not carried out due to patient leaving prior to being seen by health care provider (principal)
CPT/HCPCS: 99283

== ENCOUNTER 2025-01-23 12:16 | Emergency (ER) | payer MEDICARE, MEDICAID, SELFPAY ==
[2025-01-23 12:42] VITALS: BP 130/93; PULSE 88; TEMP 36.8; O2SAT 99; BMI 31.3
--- NOTE | 2025-01-23 13:00 | ED.GENADUL1 ---
HPI HPI - General Adult General Chief complaint: Upper Respiratory Infection Stated complaint: SORE THROAT, UPPER BACK & CHEST PAIN, Time Seen by Provider: 01/23/25 12:34 Source: patient Mode of arrival: walk-in Limitations: no limitations History of Present Illness HPI narrative: Patient is a 34 yo year-old female presents to the emergency department today for evaluation of concerns for multiple complaints a sore throat with cough and cold symptoms. Symptoms began 4 days ago. She denies any fevers. Pain or shortness of breath. She does endorse some pain in her back that she states is worse with coughing. No dizziness or syncope. She denies any abdominal pain or nausea/vomiting/diarrhea. No smoking. Related Data Home Medications ?Medication ?Instructions ?Recorded ?Confirmed duloxetine 60 mg capsule,delayed 60 mg PO BID 06/10/23 01/23/25 release lamotrigine 25 mg tablet 100 mg PO QDAY 04/08/24 01/23/25 gabapentin 100 mg capsule 600 mg PO TID 01/23/25 01/23/25 trazodone 100 mg tablet 100 mg PO .qhs 01/23/25 01/23/25 Allergies Allergy/AdvReac Type Severity Reaction Status Date / Time buspirone (From BuSpar) Allergy Intermediate tachycardia Verified 08/15/24 14:56 aripiprazole (From Abilify) Allergy Unknown Verified 08/15/24 14:56 COCONUT Allergy Mild Hives Uncoded 08/15/24 14:56 Opioid HPI Opioid Management Most Recent Opioid Data: Last Pain Scale 3 Today, 12:42 Ur Phencyclidine Scrn, (NEGATIVE) Negative 07/22/24, 13:51 Review of Systems ROS Status of ROS 10 or more systems reviewed and unremarkable except as noted in history and below [facility] Social History Smoking status: Current every day smoker Little interest or pleasure in doing things: not at all Feeling down, depressed, or hopeless: not at all Exam Constitutional Vital Signs, click to edit/add: Last Vital Signs Temp 98.2 F 01/23/25 12:42 Pulse 88 01/23/25 12:42 Resp 14 01/23/25 12:42 BP 130/93 H 01/23/25 12:42 Pulse Ox 99 01/23/25 12:42 O2 Del Method Room Air 01/23/25 12:42 Common normals: no apparent distress General appearance: cooperative and comfortable [facility] Common normals: normocephalic, external ears normal, moist oral mucous membranes and oropharynx normal Eye Common normals: EOMs intact bilaterally and conjunctivae normal Neck & C-Spine Common normals: full ROM and no lymphadenopathy Chest Common normals: inspection of chest normal Respiratory Common normals: normal respiratory effort Auscultation: clear to auscultation bilaterally Cardio Common normals: regular rate and regular rhythm GI Common normals: soft to palpation and non-tender Back & Pelvis Common normals: thoracic and lumbar spine normal to inspection Extremity Common normals: normal to inspection, full ROM and normal capillary refill Neuro Sensorium/orientation: awake and alert Meningeal signs: no meningeal signs Psych Common normals: mental status grossly normal Course Vital Signs Vital signs: Vital Signs Temperature 98.2 F 01/23/25 12:42 Pulse Rate 88 01/23/25 12:42 Respiratory Rate 14 01/23/25 12:42 Blood Pressure 130/93 H 01/23/25 12:42 Pulse Oximetry 99 01/23/25 12:42 Oxygen Delivery Method Room Air 01/23/25 12:42 Temperature 98.2 F 01/23/25 12:42 Pulse Rate 88 01/23/25 12:42 Respiratory Rate 14 01/23/25 12:42 Blood Pressure 130/93 H 01/23/25 12:42 Pulse Oximetry 99 01/23/25 12:42 Oxygen Delivery Method Room Air 01/23/25 12:42 Medical Decision Making Medical Records Medical records reviewed: Yes I reviewed the patient's medical records Lab Data Lab results reviewed: Yes I reviewed the patient's lab results Labs: Lab Results 01/23/25 Range/Units 12:55 Streptococcus Screen Negative Smoking Cessation Time spent discussing smoking cessation with patient: 3 to 10 minutes Patient Acknowledges Need for Cessation: Yes Discharge Plan Discharge Chief Complaint: Upper Respiratory Infection Clinical Impression: Acute viral pharyngitis Patient Disposition: Home, Self-Care Prescriptions / Home Meds: No Action duloxetine 60 mg capsule,delayed release(DR/EC) 60 mg PO BID lamotrigine 25 mg tablet 100 mg PO QDAY gabapentin 100 mg capsule 600 mg PO TID trazodone 100 mg tablet 100 mg PO .qhs Print Language: Georgian Instructions: Pharyngitis (ED) Additional Instructions: May take Tylenol or ibuprofen as needed for any pain. Salt water or take throat lozenges [id number] for further relief in pain. Stop smoking as discussed. Please up with your primary care provider for reevaluation as discussed. Referrals: KAYLEE AMES [Primary Care Provider, Unknown] - 1 week
[2025-01-23 13:26] LABS: Internal Control Within Normal Limits; Strep A Antigen Screen Negative
== END 2025-01-23 13:40 | disposition home or self-care (01) ==
PROVIDERS: Nurse Practitioner; Emergency Provider Emergency Medicine
DX: J02.9 Acute pharyngitis, unspecified (principal); R05.9 Cough, unspecified; M54.9 Dorsalgia, unspecified
CPT/HCPCS: 87070; 87880; 99283

== ENCOUNTER 2025-03-16 06:22 | Emergency (ER) | payer MEDICARE, MEDICAID, SELFPAY ==
[2025-03-16 06:25] VITALS: BP 136/93; PULSE 78; TEMP 36.4; O2SAT 97; BMI 30.5
--- OUTSIDE RECORDS SUMMARY | 2025-03-16 06:34 | XMS_ITS | CCD ---
Author Organization [facility] ion Partnership [facility] Care Team Providers Care Manager Orange Name Role Phone Jennie Durand Primary Care Provider [phone] LINDY COTE Attending Unavailable PROVIDER, UNKNOWN Admitting Unavailable PATIENT, SELF Referring Unavailable Jennie Durand Primary Care Provider [phone] Jennie Durand DO Primary Care Provider [phone] JENNIE DURAND Primary Care Unavailable Jennie Durand DO Primary Care Provider Unavailable Primary Care Provider UnavailAimee Renee Primary Care Physician Unavailable Primary Care Provider UnavailDO Jennie Pichardo Primary Care Provider [phone] MD Sangeetha Peña Admit Provider Lindy Hdz Other Provider Unavailable DO Krystal Romo Other Provider MD Carolyne Schilling Other Provider DO Jamie Larsen Other Provider DIANNE Niño-CHRIS Kevin Other Provider DO Kenrick Lee Other Provider CEDRIC Zaragoza Other Provider [phone] ASTON Smith Other Provider [phone] MD Lizzeth Malave Attending Provider DO Jamie Larsen Referring Provider [phone] DIANNE Niño-CHRIS Kevin Attending Provider Charisse Nakia Brock Primary Care Physician [phone] DR CAROLYNE RALPH Consulting Unavailable MISC, DR [...] YOLI ALFORD Consulting Unavailable ALICJA, DR WILEY Parr Consulting Unavailable BON ., STEFANIE Attending Unavailable [...] e Nakia Mcqueen Primary Care Physician Jennie Duradn Primary Care Physician Durand, DO Jennie D Primary Care Provider [phone] Tupa, DO Jose Maria Blue Emergency Provider Ania Javed Unavailable Eve, Imad Unavailable Durand, DO Jennie D Primary Care Provider Turamses, DO Joes Maria Blue Emergency Provider MD Yoli Norris Emergency Provider [phone] GANESH CORDERO Referring Unavailable DURAND, JENNIE D Primary Care Unavailable MARII JOSUE Referring Unavailable DURAND, JENNIE D Primary Care Unavailable MAN, SHUMEArielle Attending Unavailable EILEEN ALVAREZ Attending Unavailable LEONELA AGUIRRE Referring Unavailable Durand DO, Jennie D Primary Care Provider GAMALIEL VICKERS Referring Unavailable DURAND, JENNIE D Primary Care Unavailable JOSUEMARII Referring Unavailable DURAND, JENNIE D Primary Care Unavailable MARII JOSUE Referring Unavailable DURAND, JENNIE D Primary Care Unavailable Durand, DO Jennie D Primary Care Provider MD Marii Christiansen Emergency Provider [phone] Turamses, DO Jose Maria Blue Emergency Provider CEDRIC Javed Emergency Provider Eve BHAKTA, Imad Unavailable Elia Baires DO Primary Care Provider Alexis Shukla Attending Unavailable Bakari Chester Attending Unavailable REFERRAL, SELF Referring Unavailable Otto Larsen Attending Unavaila ble Durand, Jennie D Admitting Unavailable Durand, Jennie D Referring Unavailable Durand, Jennie D Attending Unavailable LEONOR CORDERO Attending Unavailable LEONOR CORDERO Admitting Unavailable Otto Larsen Attending UnavailAlexis Bergman Attending Unavailable Tevin Carson DO Primary Care Provider [phone] Unavailable Primary Care Provider Unavailbehzad e Unavailable Primary Care Provider Unavailabl e TIFFANIE MARADIAGA Primary Care Physician [facility] DO Natacha Unavailable ALAEH HOWARD Referring Unavailable ESHA, KURT A Primary Care Physician Esha, Kurt A Unavailable NON STAFF Primary Care Provider Unavailabl e Saffle Sailaja STEELE N Emergency Provider ESHA, KURT A Attending Unavailable ESHA, KURT A Admitting Unavailable ESHA, KURT A Attending Unavailable TIFFANIE MARADIAGA Primary Care Unavailable ESHA, KURT A Attending Unavailable Corby Larsen DO Unavailable [phone] ESHA, KURT A Attending Unavailable ESHA, KURT A Admitting Unavailable ESHA, KURT A Attending Unavailable ESHA, KURT A Attending Unavailable GANGA LARSENER Attending Unavailable CORBY LARSEN Attending Unavailable TEVIN CARSON Attending Unavailable CARSON, TEVIN Primary Care Unavailable FATUMA TYLER Attending Unavailable CARSON, TEVIN Primary Care Unavailable CARSON, TEVIN Primary Care Unavailable ABI ASIF Referring Unavailable CARSON, TEVIN Primary Care Unavailable CARSON TEVIN Attending Unavailable CARSON, TEVIN Primary Care Unavailable CARSON, TEVIN Referring Unavailable CARSON, TEVIN Primary Care Unavailable BAIRES, ELIA N Attending Unavailable BAIRES, ELIA N Referring Unavailable BAIRES, ELIA N Primary Care Unavailable BAIRES, ELIA N Attending Unavailable BAIRES, ELIA N Primary Care Unavailable NAFFOUJE, SAMER A Referring Unavailable BAIRES, ELIA N Primary Care Unavailable NON STAFF Primary Care Provider Unavailabl e Safjosee Sailaja STEELE Emergency Provider Jacob Baker MD Attending Provider [phone] MARII JOSUE Referring Unavailable JENNIE DURAND Primary Care Unavailable NON STAFF Primary Care Provider UnavailCorby Godwin DO M Attending Provider [phone] ALEAH HOWARD Attending Unavailable Jose Roberto Card JOB TRAINING SPECIALIST.[facility], [facility] Unavailable MOLLY WAGNER Admitting Unavailable MOLLY WAGNER Referring Unavailable MOLLY WAGNER Attending Unavailable Babar Mayers Referring Unavailable Babar Mayers Attending Unavailable Babar Mayers Admitting Unavailable Jennie Durand Admitting Unavailable Jennie Durand Referring Unavailable Durand, Jennie D Attending Unavailable Othman, Mahmoud Consulting Unavailable BERNARD, MOLLY Admitting Unavailable BERNARD, MOLLY Referring Unavailable BERNARD, MOLLY Attending Unavailable Othman, Mahmoud Consulting Unavailable Othman, Mahmoud Consulting Unavailable Riverside, Jak W Referring Unavailable Riverside, Jak W Attending Unavailable Riverside, Jak W Admitting Unavailable Babar Mayers Attending Unavailable Babar Mayers Referring Unavailable Durand, Jennie D Attending Unavailable Durand, Jennie D Admitting Unavailable Rhiew, David B Referring Unavailable Rhiew, David B Attending Unavailable Rhiew, David B Admitting Unavailable Rhiew, David B Attending Unavailable Rhiew, David B Admitting Unavailable AustinBryan Attending Unavailable Jose Correia Attending Unavailable ESHA, KURT A Attending Unavailable ESHA, KURT A Attending Unavailable ESHA, UKRT A Attending Unavailable Kate, Orlando Attending Unavailable Kate, Orlando Admitting Unavailable Rhiew, David B Referring Unavailable Kate, Orlando Attending Unavailable Kate, Orlando Admitting Unavailable Durand, Jennie D Referring Unavailable Kate, Orlando Referring Unavailable Kate, Orlando Attending Unavailable Kate, Orlando Admitting Unavailable Durand, Jennie D Referring Unavailable Durand, Jennie D Attending Unavailable BERNARD, MOLLY Referring Unavailable Riverside, Jak W Attending Unavailable MARII RICK Admitting Unavailable MARII RICK Attending Unavailable Bryan Avila Attending Unavailable NON STAFF Primary Care Unavailable Corby Larsen Attending Unavailab Corby Apodaca Admitting Unavailab le NON STAFF Primary Care Unavailable Jacob Baker Attending Unavailable Jacob Baker Admitting Unavailable Valente, Efrem Attending Unavailab le Valente, Efrem Admitting Unavailab le Lindy Keen Primary Care Unavailable NON STAFF Primary Care Unavailable Sailaja Anderson N Attending Unavailable SaffleSailaja N Admitting Unavailable Riverside, Jak W Referring Unavailable Riverside, Jak W Attending Unavailable MARII RICK R Attending Unavailable MARII RICK R Admitting Unavailable Babar Mayers Attending Unavailable Babar Mayers Admitting Unavailable Durand, Jennie D Referring Unavailable Babar Mayers Referring Unavailable Babar Mayers Attending Unavailable Allergies Allergy Classification Reported Allergen(s) Allergy Type Date of Onset Reaction(s) Facility coconut allergenic extract (7 sources) coconut allergenic extract Drug Allergy 07-18-20 [facility] (20 sources) coconut allergenic extract; Translations: [Coconut Oil] Drug Allergy 07-18-20 Itching [place], [place] (19 sources) Coconut Flavor; Translations: [COCONUT FLAVOR] Propensity to adverse reactions to drug 05-09-20 Anaphylaxis [place] (1 source) SOAP; Translations: [SOAP] Propensity to adverse reactions to drug (disorder) 11-13-[address] [facility] (1 source) Pencils; Translations: [Unknown] Propensity to adverse reactions (disorder) 11-13-19 [facility] Rep[facility] (20 sources) Coconut extract; Translations: [coconut] Drug Allergy 07-18-20 Swelling [facility] (20 sources) ARIPiprazole lauroxil; Translations: [aripiprazole] Drug Allergy suicidal [facility] (20 sources) ARIPiprazole; Translations: [aripiprazole] Drug Allergy 08-19-20 22 Mental Status Change, Other: See Comments, Unknown, Other [facility] Comment on above: Pt states it makes h er suicidal. (1 source) ARIPiprazole Drug Allergy 10-30-19 23 [facility] Rep[facility] (20 sources) busPIRone; Translations: [Buspirone] Drug Allergy Unknown, palpitations [facility] (20 sources) buPROPion; Translations: [BUPROPION] Drug Allergy 07-16-20 21 Unknown, Other [facility] (12 sources) busPIRone; Translations: [buspirone] Drug Allergy 12-10-19 24 Palpitations [facility] (4 sources) Coconut Oil, Hydrogenated; Translations: [COCONUT OIL, HYDROGENATED] Propensity to adverse reactions 07-18-20 [facility] Work Phone: (5 sources) Coconut extract Drug Allergy 01-31-20 24 [facility] Medications Current Medications Medication Drug Class(es) Dates Sig (Normalized) Sig (Original) acetaminophen 325 mg oral tablet (20 sources) Start: 04-18-2016 take 325 mg by mouth every four hours as needed for pain Tylenol 325 mg, Oral, q4hr, PRN as needed for pain, Refills(s) 0, Pain Start Date: 04/18/16 Status: Ordered Repeat number: 1 End: 01-07-2021 take 2 tablets by mouth [...] headache, 12 cap(s), Refill(s) 0, [id number], 170, cm, 08/22/22 10:41:00 EST, Height/Length Dosing, 85, kg, 08/22/22 10:41:00 EST, Weight Dosing Start Date: 08/22/22 Status: Ordered Start: 08-08-2022 take 1 capsule by [facility] every four hours for headache APAP/butalbital/caffeine [...] day(s), 7 tab(s), Refill(s) 0, [id number], 170, cm, 11/21/22 10:37:00 EST, Height/Length Dosing, [...] COCET) 5-325 MG per tablet 1 tablet [id number] 60 actuat albuterol 0.09 mg/actuat metered dose [...] times a day prn Jun, Active Start: 10-25-2023 take 2 puff(s) by in halation four [...] Refill(s) 0 Start Date: 07/01/21 Status: Ordered baclofen 5 mg oral tablet (2 sources) gamma-Aminobutyric Acid-ergic Agonist Start: 03-03-2025 End: 04-02-2025 take 1 tablet by mouth three times daily as needed for pain baclofen 5 mg oral tablet 5 mg = 1 tab(s), Oral, TID, PRN Pain, X 30 day(s), # 90 tab(s), Refills(s) 0, Pharmacy: [facility] #[id number], 170, cm, 03/03/25 7:35:00 EDT, Height/Length Dosing, 90.4, kg, 02/17/25 18:58:00 EDT, Weight Dosing Start Date: 03/03/25 Stop Date: 04/02/25 Status: Ordered Quantity: 90.0 Unit: tab(s) Repeat number: 1 brompheniramine maleate 0.4 mg/ml / dextromethorphan hydrobromide 2 mg/ml / pseudoephedrine hydrochloride 6 mg/ml oral solution (3 sources) alpha-Adrenergic Agonist, Uncompetitive K-zxaxlw-B-aspartat e Receptor Antagonist, Sigma-1 Agonist Start: 02-17-2025 take 10 mL by mouth four times daily Bromfed DM oral syrup 10 mL, Oral, QID for cold symptoms, 200 mL, Refill(s) 0, [facility][id number], 170, cm, 02/17/25 18:58:00 EDT, Height/Length Dosing, 90.4, kg, 02/17/25 18:58:00 EDT, Weight Dosing Start Date: 02/17/25 Status: Ordered Quantity: 200.0 Unit: mL Repeat number: 1 calcium carbonate 1250 mg oral tablet (15 sources) Start: 08-11-2022 take 1 tablet by mouth twice daily Calcium Carbonate 500 mg calcium (1,250 mg) Tablet Active 500 MG PO Twice daily August [...] Refills(s) 0 Start Date: 07/01/21 Status: Ordered Vraylar (12 sources) Atypical Antipsychotic Start: 01-13-2025 Vraylar Oral, Daily, Refills(s) 0 Start Date: 01/13/25 Status: Ordered Repeat number: 1 cyclobenzaprine hydrochloride 5 mg oral tablet (4 [...] day(s), # 42 tab(s), Refills(s) 0, Pharmacy: [facility]/pharm[facility] #[id number], 170, cm, 08/22/22 10:41:00 EST, Height/Length [...] Serotonin and Norepinephrine Reuptake Inhibitor Start: 02-21-2023 End: 08-08-2024 take 1 capsule by mouth once daily at bedtime Duloxetine 30 mg capsule,delayed release(DR/EC) Discontinued 30 MG PO Daily at bedtime August 15, 2023 1:00am December 31, 2023 11:59am Start: 07-20-2020 End: 08-19-2022 Duloxetine 30 mg Capsule,Del ayed Release(Dr/Ec) Discontinued 30 MG PO Daily at bedtime July 20, 2020 1:00am August 19, 2022 8:39am Take with 60mg tablet for total of 90mg Start: 02-29-2020 DULoxetine (Cy mbalta) [address] capsule Take 90 mg by mouth. 02/29/2020 Active Start: 02-02-2019 Cymbalta 60 mg , Oral, BID, per dr chaparro, Depression Start Date: 02/02/19 Status: Ordered Repeat number: 1 Start: 02-02-2019 Cymbalta 60 mg , Oral, BID, per dr chaparro, Depression Start Date: 02/02/19 Status: Ordered Start: 02-02-2019 Cymbalta 90 mg , Oral, Daily, 30mg in AM 60mg at night, Depression Start Date: 02/02/19 Status: Ordered Start: 01-08-2019 take 1 capsule by [facility] twice daily DULoxetine (CYMBALTA) 60 mg capsule Indications: Bipolar affective disorder in remission (HCC) , Borderline personality disorder (HCC) , Anxiety disorder, unspecified type Take 1 capsule by mouth two times a day. 03/08/2024 Active Start: 01-08-2019 End: 03-08-2024 take 1 capsule by mouth once daily at bedtime Duloxetine (Cymbalta) 60 mg Capsule,Delayed Release(Dr/Ec) Active 60 MG PO Daily at bedtime January 08, 2019 12:00am take 1 capsule by [facility] every eight hours Cymbalta 30 MG 1 capsule Orally three times a day Active Cymbalta Active Comment on above: Take 60 mg by mouth once daily. 0.4 ml enoxaparin sodium 100 mg/ml prefilled syringe (1 source) Low Molecular Weight Heparin Start: 1 inject 1 dose by subcutaneous injection twice daily 40 mg, Subcutaneous, EVERY 12 HOURS SCHEDULED (2 times per day), First dose on Thu01/30/21 at 2200 2 ml famotidine 10 mg/ml injection (1 source) Histamine-2 Receptor Antagonist Start: 1 famotidine (PEPCID) injection 20 mg ferrous sulfate 325 mg oral tablet (20 sources) Start: 5 take 1 tablet by mouth once daily ferrous sulfate 325 mg Tab TAKE 1 TABLET BY MOUTH EVERY DAY FOR 30 DAYS Start Date: 09/15/24 Status: Ordered Repeat number: 1 Start: 06-22-2008 End: 02-13-2022 ferrous sulfate(IRON 325 MG (65 MG IRON) TAB) gabapentin 600 mg oral tablet (20 sources) Anti-epileptic Agent Start: 01-13-2025 take 1 tablet by mouth three times daily gabapentin 600 mg Tab 600 mg = 1 tab(s), Oral, TID, # 90 tab(s), Refills(s) 2, Pharmacy: [facility]/pharmacy #[id number], 170, cm, 01/13/25 8:29:00 EDT, Height/Length Dosing, 88.5, kg, 01/13/25 8:29:00 EDT, Weight Dosing Start Date: 01/13/25 Status: Ordered Quantity: 90.0 Unit: tab(s) Repeat number: 3 Indications: Radiculopathy, lumbar region; Start: 01-13-2025 gabapentin 300 mg, Oral, BID-TID, Refills(s) 0 Start Date: 01/13/25 Status: Ordered Repeat number: 1 Start: 10-14-2024 take 1 capsule by [facility] three times daily gabapentin 300 mg Cap 300 mg = 1 cap(s), Oral, TID, # 90 cap(s), Refills(s) 0, Pharmacy: [facility]/pharmacy #[id number], 170, cm, 10/14/24 9:02:00 EST, Height/Length Dosing, 90.2, kg, 10/14/24 9:02:00 EST, Weight Dosing Start Date: 10/14/24 Status: Ordered Start: 09-24-2022 End: 08-08-2024 take 1 capsule by mouth twice daily gabapentin 300 mg Cap 300 mg = 1 cap(s), Oral, BID, Refills(s) 0, Other (see comment) Start Date: 11/21/22 Status: Ordered 1 ml heparin sodium, porcine 5000 unt/ml prefilled syringe (2 sources) Unfractionated Heparin, Anti-coagulant Start: 01-07-2021 End: 01-07-2021 heparin (porcine) injection 5,000 Units 1 ml HYDROmorphone hydrochloride 1 mg/ml cartridge (5 sources) Opioid Agonist Start: 09-18-2023 HYDROmorphone (DILAUDID) injection 0.5 mg Start: 01-07-2021 HYDROmorphone (DILAUDID) injection 1 mg Start: 09-28-2020 HYDROmorphone (DILAUDID) injection 0.25 mg Start: 09-28-2020 HYDROmorphone (DILAUDID) injection 0.5 mg hydrOXYzine hydrochloride 50 mg oral tablet (12 sources) Antihistamine Start: 04-21-2022 hydrOXYzine hy drochloride 50 mg oral tablet Refills(s) 0 Start Date: 04/21/22 Status: Ordered Start: 01-08-2019 End: 07-18-2020 take 1 capsule by mouth three times daily Hydroxyzine Pamoate 25 mg capsule Discontinued 25 MG PO Three times daily January 08, 2019 12:00am July 18, 2020 3:27pm labetalol (NORMODYNE;TRANDATE) injection 10 mg (1 source) Start: 09-18-2023 labetalol (NORMODYNE;TRANDATE) injection 10 mg labetalol (NORMODYNE;TRANDATE) injection syringe 5 mg (1 source) Start: 09-28-2020 labetalol (NORMODYNE;TRANDATE) injection syringe 5 mg lamoTRIgine 25 mg oral tablet (20 sources) Mood Stabilizer , Anti-epile ptic Agent Start: 02-13-2025 take 2 tablets by mouth twice daily lamoTRIgine (LAMICTAL) 25 mg tablet Indications: Bipolar affective disorder in remission (HCC) , Borderline personality disorder (HCC) , Anxiety disorder, unspecified type TAKE 2 TABLETS BY MOUTH TWICE A DAY 360 tablet 02/13/2025 Active Start: 01-13-2025 take 100 mg by mouth once otto y lamotrigine 100 mg, Oral, Daily, Refills(s) 0 Start Date: 01/13/25 Status: Ordered Repeat number: 1 Start: 09-15-2024 take 3 tablets by mo uth once daily lamotrigine 25 mg Tab TAKE 3 TABLETS BY MOUTH EVERY DAY Start Date: 09/15/24 Status: Ordered Repeat number: 1 Start: 01-06-2024 End: 02-13-2025 take 2 tablets by mouth twice daily lamoTRIgine (LAMICTAL) 25 mg tablet Indications: Bipolar affective disorder in remission (HCC) , Borderline personality disorder (HCC) , Anxiety disorder, unspecified type Take 2 tablets by mouth two times a day. 360 tablet 08/17/2024 02/13/2025 Discontinued End: 07-25-2024 take 3 tablets by mouth once daily lamoTRIgine (LAMICTAL) 25 mg tablet Indications: Bipolar affective disorder in remission (HCC) , Borderline personality disorder (HCC) , Anxiety disorder, unspecified type Take 75 mg by mouth once daily. 07/25/2024 Discontinued (Course of therapy completed) LORazepam 0.5 mg oral tablet (20 sources) Benzodiazepine Start: 12-31-2023 take 1 tablet by mouth three times daily as needed for anxiety Lorazepam (Ativan) 0.5 mg tablet Active 0.5 MG PO Three times daily as needed for anxiety 6 2 December 31, 2023 12:00am Start: 01-31-2020 End: 08-19-2022 take 1 tablet by mouth twice daily as needed for anxiety Lorazepam 1 mg tablet Discontinued 1 MG PO Twice daily as needed for Anxiety July 18, 2020 1:00am August 19, 2022 8:39am End: 08-08-2024 take 1 tablet by mouth every eight hours as needed LORazepam (Ativan) 1 mg tablet Take 1 tablet (1 mg) by mouth every 8 hours if needed. 08/08/2024 Discontinued (Therapy completed) magnesium oxide 400 mg oral tablet (2 sources) Start: 08-08-2024 End: 08-08-2025 take 1 tablet by mouth once daily magnesium oxide (Mag-Ox) 400 mg tablet Indications: Palpitations Take 1 tablet (400 mg) by mouth once daily. 90 tablet 3 08/08/2024 08/08/2025 Active 1 ml meperidine hydrochloride 50 mg/ml injection (1 source) Opioid Agonist Start: 09-28-2020 meperidine (DEMEROL) injection 12.5 mg methocarbamol 750 mg oral tablet (1 source) Muscle Relaxant Start: 10-18-2024 End: 10-21-2024 take 1 tablet by mouth three times daily Robaxin-750 oral tablet 1,500 mg = 2 tab(s), Oral, TID, X 3 day(s), # 18 tab(s), Refills(s) 0, Pharmacy: [facility]/pharmacy #[id number], 170, cm, 10/18/24 8:12:00 EST, Height/Length Dosing, 90, kg, 10/18/24 8:12:00 EST, Weight Dosing Start Date: 10/18/24 Stop Date: 10/21/24 Status: Ordered 2 ml metoclopramide 5 mg/ml prefilled syringe [...] Refill(s) 0 Start Date: 07/01/21 Status: Ordered Repeat number: 1 Start: 07-01-2021 Multi-Day Plus Minerals Oral, Daily, Refill(s) 0 Start Date: 07/01/21 Status: Ordered Multiple Vitamins-Minerals (multivitamin with minerals) tablet (5 sources) take 1 tablet by mouth once daily Multiple Vitamins-Minerals (multivitamin with minerals) tablet Take 1 tablet by mouth Daily Active Multivitamin preparation (7 sources) Start: 08-11-2022 take 1 tablet by mouth once daily Multivitamin Active 1 TAB PO Daily August 11, 2022 1:00am Start: 08-11-2022 take 1 tablet by juan manuel th once daily Multivitamin Active 1 TAB PO Daily August 11, 2022 12:00am Multivitamin Tablet (3 sources) Start: 08-11-2022 take 1 tablet by mouth once daily Multivitamin Tablet Active 1 TAB PO Daily August 11, 2022 1:00am Start: 08-11-2022 take 1 tablet by juan manuel th once daily Multivitamin Tablet Active 1 TAB PO Daily August 11, 2022 12:00am cfsbawwiumhv-qyr-jbdw-FA-vit K (BARIATRIC MULTIVITAMINS) 45 mg iron- 800 mcg-120 mcg cap (20 sources) multivitamin-min -iron-FA-vit K (BARIATRIC MULTIVITAMINS) 45 mg iron- 800 mcg-120 mcg cap Take by mouth. Active multivitamin-min -iron-FA-vit K (BARIATRIC MULTIVITAMINS) 45 mg iron- 800 mcg- 120 mcg cap Take by mouth. 0 Active Comment on above: Take by mouth. dxcmhsbjagwg-zmd-ox on-FA-vit K (Bariatric Multivitamins) 45 mg iron- 800 mcg-120 mcg capsule (2 sources) multivitamin-min -i bria-FA-vit K (Bariatric Multivitamins) 45 mg iron- 800 mcg-120 mcg capsule Take by mouth. Active naproxen 500 mg oral tablet (9 sources) Nonsteroidal Anti-inflammatory Drug Start: 03-08-2024 End: 03-18-2024 take 1 tablet by mouth twice daily naproxen 500 mg Tab 500 mg = 1 tab(s), Oral, BID, X 10 day(s), # 20 tab(s), Refills(s) 0, Pharmacy: [facility]/pharmacy #[id number], 170, cm, 03/08/24 13:22:00 EDT, Height/Length Dosing, 89.4, kg, 03/08/24 13:22:00 EDT, Weight Dosing Start Date: 03/08/24 Stop Date: 03/18/24 Status: Ordered Start: 08-07-2022 take 1 tablet by juan manuel th twice daily as needed for pain naproxen 500 mg Tab 500 mg = 1 tab(s), Oral, BID, PRN for pain, # 20 tab(s), Refills(s) 0, Pharmacy: [facility]/pharmacy #[id number], 170, cm, 04/20/22 15:01:00 EDT, Height/Length Dosing, 81.5, kg, 04/20/22 15:01:00 EDT, Weight Dosing Start Date: 04/20/22 Status: Ordered 24 hr nicotine 0.583 mg/hr transdermal system (1 source) Cholinergic Nicotinic Agonist Start: 11-03-2022 End: 01-02-2023 nicotine 14 mg/24 hr Transderm ER Film 1 patch(es), Topical, Daily for 30 day(s), 30 patch(es), Refill(s) 1, [facility]/pharm[facility] #[id number], 170, cm, 11/03/22 13:04:00 EST, Height/Length [...] FOOD Start Date: 01/29/22 Status: Ordered nystatin [id number] unt/ml oral suspension (1 source) Polyene Antifungal [...] eat or drink for 30 minutes afterwards. OLANZapine 5 mg oral tablet (8 sources) Atypical Antipsychotic Start: 11-15-2024 olanzapine 5 mg Tab Refills(s) 0 Start Date: 11/15/24 Status: Ordered Repeat number: 1 ondansetron 4 mg disintegrating oral tablet (20 [...] BID, # 6 tab(s), Refills(s) 1, Pharmacy: [facility]/pharmacy #[id number], 162, cm, 08/08/22 9:11:00 EST, Height/Length Dosing, 83.1, kg, 08/08/22 9:11:00 EST, Weight Dosing Start Date: 08/14/22 Status: Ordered Quantity: 6.0 Unit: tab(s) Repeat number: 2 Indication: Nausea Start: 01-30-2021 End: 01-30-2021 ondansetron (ZOFRAN) injecti on 4 mg Start: 01-07-2021 ondansetron (Z OFRAN) injection 4 mg Start: 11-26-2020 take 1 tablet by juan manuel th every four hours as needed ondansetron (ZOFRAN-ODT) 4 MG disintegrating tablet DISSOLVE ONE TABLET BY MOUTH EVERY 4 HOURS NEEDED 0 11/26/2020 Active Start: 09-28-2020 End: 09-28-2020 ondansetron (ZOFRAN) injecti on 4 mg ondansetron (Zof ran) 4 MG tablet Take by mouth Active Trileptal (15 sources) Anti-epileptic Agent Start: 08-22-2022 Trileptal Refills(s) 0 Start Date: 08/22/22 Status: Ordered Start: 08-12-2022 End: 08-15-2023 Oxcarbazepine 150 mg tablet Discontinued 75 MG PO Twice daily August 12, 2022 1:00am August 15, 2023 12:45pm Start: 08-12-2022 End: 08-15-2023 take 75 mg [...] by mouth once daily Pantoprazole 40 mg tablet,delayed release (DR/EC) Active 40 MG PO Daily July 18, 2020 1:00am End: 08-08-2024 take 1 tablet by mouth [...] dextrose 5 % 50 mL IVPB (mini-bag) predniSONE 20 mg oral tablet (4 sources) Start: 10-18-2024 End: 10-25-2024 take 3 tablets by mouth once daily predniSONE 20 mg Tab 60 mg = 3 tab(s), Oral, Daily, X 7 day(s), # 21 tab(s), Refills(s) 0, [id number] 170, cm, 10/18/24 8:12:00 EST, Height/Length Dosing, 90, kg, 10/18/24 8:12:00 EST, Weight Dosing Start Date: 10/18/24 Stop Date: 10/25/24 Status: Ordered Start: 07-08-2023 take 1 tablet by juan manuel th every twelve hours predniSONE 20 MG 1 tablet Orally bid for 5 day(s) Jun, Not-Taking/PRN pregabalin 150 mg oral capsule (5 sources) Start: 11-21-2024 End: 12-21-2024 take 1 capsule by mouth twice daily pregabalin 150 mg Cap 150 mg = 1 cap(s), Oral, BID, X 30 day(s), # 60 cap(s), Refills(s) 0, [id number] 170, cm, 11/15/24 13:59:00 EST, Height/Length Dosing, 88.5, kg, 11/15/24 13:59:00 EST, Weight Dosing Start Date: 11/21/24 Stop Date: 12/21/24 Status: Ordered Quantity: 60.0 Unit: cap(s) Repeat number: 1 Indication: Radiculopathy, lumbar region Start: 11-21-2024 End: 01-20-2025 take 1 capsule by mouth twice daily pregabalin 50 mg Cap 50 mg = 1 cap(s), Oral, BID, X 30 day(s), # 60 cap(s), Refills(s) 1, [id number] 170, cm, 11/15/24 13:59:00 EST, Height/Length Dosing, 88.5, kg, 11/15/24 13:59:00 EST, Weight Dosing Start Date: 11/21/24 Stop Date: 01/20/25 Status: Ordered Quantity: 60.0 Unit: cap(s) Repeat number: 2 Indication: Radiculopathy, lumbar region vits w-ca,fe,fa(<1m g)( VITAMIN TAB) (3 sources) Start: 06-22-2008 End: 02-13-2022 vits w-ca,fe,fa( Start: 06-22-2008 vits w-ca,fe,fa( 72 hr scopolamine 0.0139 mg/hr transdermal system (1 source) Anticholinergic Start: 01-07-2021 scopolamine (TRANSDERM-SCOP) transdermal patch 1 patch Semaglutide (4 sources) Start: 12-31-2023 Semaglutide (O zempic) 0.25 mg or 0.5 mg (2 mg/3 mL) pen injector Active 0.5 MG SUBCUT every week December 30, 2023 11:00pm for 4 weeks Start: 12-31-2023 Semaglutide (O zempic) 0.25 mg or 0.5 mg (2 mg/3 mL) pen injector Active 0.5 MG SUBCUT every week December 31, 2023 12:00am for 4 weeks semaglutide (9 sources) Start: 01-27-2025 inject 2.4 mg by subcutaneous injection every week semaglutide 2.4 mg, SubCutaneous, qWeek, Refills(s) 0 Start Date: 01/27/25 Status: Ordered Repeat number: 1 5 ml sodium chloride 9 mg/ml injection [...] 08, 2019 12:00am August 12, 2022 5:17pm take 1 tablet by juan manuel th in the morning topiramate (Topamax) 25 MG tablet Take 25 mg by mouth in the morning and 25 mg before bedtime. Active Topamax Not-Taki ng/PRN Topamax Not-Taki ng Comment [...] 0, Sleep Start Date: 08/22/22 Status: Ordered Repeat number: 1 Start: 01-31-2022 End: 02-07-2022 take 1 tablet by mouth once daily at bedtime traZODONE 50 mg Tab 50 mg = 1 tab(s), Oral, Once a day (at bedtime), X 7 day(s), # 7 tab(s), Refills(s) 0, Pharmacy: [id number], 170, cm, 01/31/22 16:58:00 EDT, Height/Length [...] as needed 08/27/2021 08/08/2024 Discontinued (Therapy completed) work excuse (1 source) Start: 03-09-2025 work excuse work excuse, Patient was seen in our clinic and received a procedure on 03/03/2025. She is to be off for recovery from the procedure on 03/04/2025., Print Requisition, Supply Start Date: 03/09/25 Status: Ordered Repeat number: 1 ziprasidone 20 mg oral capsule (5 sources) Atypical Antipsychotic take 1 capsule by mouth in the morning ziprasidone (Geodon) 20 MG capsule Take 20 mg by mouth in the morning and 20 mg in the evening. Take with meals. Active Zofran ODT 4 mg Tab-Dis (2 sources) Start: 08-08-2022 take 1 tablet by mouth every eight hours as needed for nausea Zofran ODT 4 mg Tab-Dis 4 mg = 1 tab(s), Oral, q8hr, PRN Nausea/Vomiting, # 12 tab(s), Refills(s) 0, Pharmacy: [facility] #[id number], 162, cm, 08/08/22 9:11:00 EST, Height/Length Dosing, 83.1, kg, 08/08/22 9:11:00 EST, Weight Dosing Start Date: 08/08/22 Status: Ordered Completed/Discontinued Medications Medication Drug Class(es) Dates Sig (Normalized) Sig (Original) acetaminophen 325 mg / HYDROcodone bitartrate 5 mg oral tablet (2 sources) Opioid Agonist End: 08-08-2024 take 1 tablet by mouth every six hours as needed HYDROcodone-acetami nophen (Dexter) 5-325 mg tablet Take 1 tablet by mouth every 6 hours if needed. 08/08/2024 Discontinued (Therapy completed) acetaZOLAMIDE 250 mg oral tablet (20 sources) Carbonic Anhydrase Inhibitor Start: 07-07-2023 End: 07-01-2024 take 1 tablet by mouth twice daily as needed Acetazolamide 250 mg tablet Discontinued 250 MG PO Twice daily as needed for intracranial pressure August 15, 2023 1:00am December 31, 2023 11:59am Start: 11-20-2022 End: 08-08-2024 take 1 capsule by mouth twice daily Acetazolamide 500 mg capsule, extended release Discontinued 500 MG PO Twice daily July 03, 2023 12:00am August 15, 2023 12:41pm Comment on above: Take 1 capsule by [facility] twice daily. Start from 500mg [...] completed) Start: 11-22-2020 take 1 tablet by juan [...] Nov, Not-Taking/PRN ergocalciferol 1.25 mg oral capsule (10 sources) Provitamin D2 Compound Start: 07-19-2020 End: 08-19-2022 Ergocalciferol (Vitamin D2) 1,250 mcg (50,000 unit) capsule Discontinued 59754 UNIT PO every week July 19, 2020 1:00am August 19, 2022 8:39am Start: 07-19-2020 End: 08-19-2022 take 46507 [IU] by mouth every week Ergocalciferol (Vitamin D2) Discontinued 60269 UNIT PO every week July 19, 2020 [...] take 1 tablet by mouth once daily Lisinopril 5 mg Tablet Discontinued 5 MG PO Daily August 19, 2022 1:00am July 03, 2023 10:07am Magic Mouthwash (10 sources) Start: 02-06-2022 End: 02-20-2022 Magic Mouthwash Magic Mouthwash, 5 mL, Oral, TID, 240 mL, 0, Swish and swallow. 30 mL Nystatin + 210 mL Diphenhydramine + #5 tabs 20 mg hydrocortisone + Doxycycline 1,000 mg (tabs/cap)., [id number], Compound, 170, cm, 02/06/22 9:17:00 EDT, Height/Length Dos... Start Date: 02/06/22 Stop Date: 02/20/22 Status: Ordered methylPREDNISolone 4 mg oral tablet (8 sources) Corticosteroid Start: 12-03-2018 methylPREDNISolone 4 MG [...] daily. 07/01/2021 08/08/2024 Discontinued (Therapy completed) naltrexone 380 mg injection (20 sources) Opioid Antagonist Start: 08-15-2023 End: 04-18-2024 inject 380 mg by intramuscular injection every [...] chloride 10 mEq/100 mL IVPB (Peripheral Line) promethazine hydrochloride 25 mg oral tablet (20 sources) Phenothiazine Start: 08-15-2023 End: 12-31-2023 take 1 tablet by mouth every six hours as needed for nausea and vomiting Promethazine 25 mg tablet Discontinued 25 MG PO Q6H as needed for nausea and vomiting August 15, 2023 1:00am December 31, 2023 12:00pm Start: 08-22-2022 Phenergan Refi lls(s) 0 Start Date: 08/22/22 Status: Ordered Start: 08-21-2022 End: 07-03-2023 take 1 tablet by mouth every six hours as needed for nausea Promethazine 25 mg tablet Discontinued 25 MG PO Q6H as needed for Nausea August 21, 2022 1:00am July 03, 2023 [...] Atypical Antipsychotic Start: 07-19-2020 End: 08-08-2024 take 1 tablet by mouth once daily at bedtime Quetiapine 100 mg tablet Discontinued 100 MG PO Daily at bedtime July 19, 2020 1:00am August 19, 2022 8:39am Start: 01-08-2019 End: 07-19-2020 take 3 tablets by mouth once daily at bedtime Quetiapine (Seroquel) 50 mg Tablet Discontinued 150 MG PO Daily at bedtime January 08, 2019 12:00am July 19, 2020 1:34am SEROquel Not-Darile ing/PRN SEROquel Not-Dariel ing End: 12-24-2020 QUEtiapine (SEROQUEL) 100 MG tablet Take 50 mg by mouth daily 0 12/24/2020 Discontinued (LIST CLEANUP) SEMAGLUTIDE SUBCUTANEOUS (3 sources) End: 03-08-2024 SEMAGLUTIDE SUBCUTANEOUS Inj ect subcutaneously. 0 03/08/2024 Discontinued SEMAGLUTIDE SUBC UTANEOUS Inject subcutaneously. 0 Active sucralfate 1000 mg oral tablet (8 sources) Aluminum Complex Start: 07-30-2023 End: 12-31-2023 take 1 tablet by mouth four times daily Sucralfate 1 gram tablet Discontinued 1 GM PO Four times daily August 15, 2023 1:00am December 31, 2023 12:00pm SUMAtriptan (3 sources) Serotonin-1b and Serotonin-1d Receptor Agonist Imitrex Not-Taking/PRN Imitrex Not-Taki ng terbinafine 250 mg oral tablet (10 sources) Allylamine Antifungal Start: 07-19-2020 End: 07-20-2020 take 1 tablet by mouth once daily Terbinafine Hcl 250 mg tablet Discontinued 250 MG PO Daily July 19, [...] Date Documented Da te Episodic/Chronic Abdominal pain (16 sources) Generalized abdominal pain; Translations: [Generalized abdominal [...] 0 05-16-2020 Chronic Blindness and vision defects (18 sources) Blurring of visual image; Translations: [Other visual disturbances] Onset: 2 08-11-2022 Episodic Cardiac dysrhythmias (20 sources) Palpitations; Translations: [Palpitations] Onset: 4 08-12-2022 Episodic Chronic obstructive pulmonary disease and bronchiectasis (2 sources) Bronchitis, not specified as acute or chronic; Translations: [Bronchitis] Onset: 5 Episodic Complications of surgical procedures or medical care (16 sources) Reaction to lumbar puncture; Translations: [Other reaction to spinal and lumbar puncture] Onset: 2 Episodic Conditions associated with dizziness or vertigo (2 sources) Dizziness and giddiness; Translations: [Dizziness and giddiness] Onset: 3 Episodic Coronary atherosclerosis and other heart disease (11 sources) Angina pectoris; Translations: [Angina pectoris, unspecified] Onset: 4 08-13-2024 Chronic Deficiency and other anemia (20 sources) Iron deficiency anemia; Translations: [Iron deficiency anemia, unspecified] 07-25-2024 Episodic Comment on above: noted in 09/16/2024 [facility] Records page 5. added per [facility] CDI policy. Diseases of white blood cells (8 sources) Leukocytosis; Translations: [Elevated white blood cell count, unspecified] Onset: 2 Chronic Esophageal disorders (20 sources) Gastroesophageal reflux disease without esophagitis; Translations: [Gastro-esophageal reflux disease with esophagitis] Onset: 0 Resolved: 3 05-23-2020 Chronic Essential hypertension (20 sources) Essential hypertension; Translations: [Essential (primary) hypertension] Onset: 2 Resolved: 4 Chronic Headache; including migraine (13 sources) Tension-type headache; Translations: [Tension-type headache, unspecified, not intractable] Onset: 4 08-21-2022 Chronic Headache; including migraine (19 sources) Headache; Translations: [Headache, unspecified] Onset: 2 Episodic Headache; including migraine (4 sources) Headache; including migraine; Translations: [HEADACHE UNSPECIFIED] Onset: 2 Lymphadenitis (13 sources) Localized enlarged lymph nodes; Translations: [Localized enlarged lymph nodes] Onset: 2 Episodic Mood disorders (20 sources) Bipolar disorder; Translations: [Bipolar disorder, unspecified] Onset: 0 05-16-2020 Chronic Mood disorders (1 source) Mood disorders; Translations: [Depression, unspecified] Onset: 0 Nausea and vomiting (13 sources) Vomiting, unspecified; Translations: [Nausea] Onset: 2 Episodic Nonmalignant breast conditions (1 source) Fibrocystic changes of bilateral breasts; Translations: [Diffuse cystic mastopathy of right breast] 07-04-2024 Chronic Nonmalignant breast conditions (20 sources) Hypertrophy of breast; Translations: [Hypertrophy of breast] Onset: 2 Episodic Nonspecific chest pain (12 sources) Chest pain, unspecified; Translations: [Other chest pain] Onset: 2 Episodic Nutritional deficiencies (20 sources) Vitamin D deficiency; Translations: [Vitamin D deficiency, unspecified] Onset: 0 06-27-2020 Chronic Osteoarthritis (15 sources) Arthritis; Translations: [Unspecified osteoarthritis, unspecified site] Onset: 0 05-16-2020 Chronic Other acquired deformities (1 source) Spondylolisthesis; Translations: [Spondylolisthesis, site unspecified] Onset: 4 Episodic Other aftercare (1 source) Other detention (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; Translations: [OTH HALFWAY CURRENT DRUG THERAPY] Onset: 3 Episodic Other [...] dysfunction of thoracic region 08-22-2022 Episodic Other circulatory disease (1 source) Raynaud's syndrome without gangrene; Translations: [Raynaud's syndrome without gangrene] Onset: 5 Chronic Other connective tissue disease (14 sources) Disorder of oral soft tissues 02-06-2022 Episodic Other connective tissue disease (1 source) Spasm; Translations: [Other muscle spasm] Onset: 2 Episodic Other connective tissue disease (4 sources) Muscle spasm of cervical muscle of neck 08-22-2022 Episodic Other connective tissue disease (3 sources) Muscle pain; Translations: [Myalgia, unspecified site] 09-21-2024 Episodic Other connective tissue disease (19 sources) Muscle weakness 09-26-2024 Episodic Other connective tissue disease (5 sources) Pain in both feet; Translations: [Bilateral foot pain] Onset: 0 05-23-2020 Other eye disorders (5 sources) Optic disc edema; 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] Onset: 4 01-31-2024 Chronic Other gastrointestinal disorders (1 source) Other intestinal malabsorption; Translations: [Other intestinal malabsorption] Onset: 3 Chronic Other gastrointestinal disorders (3 sources) Intestinal malabsorption; Translations: [Intestinal malabsorption, unspecified] Onset: 3 11-19-2022 Chronic Other gastrointestinal disorders (20 sources) Mass of pancreas 07-01-2021 Episodic Other gastrointestinal disorders (3 sources) Cyst of abdomen 08-23-2023 Episodic Other lower respiratory disease (1 source) Cough; Translations: [Cough, unspecified] Onset: 5 Episodic Other nervous system disorders (20 sources) Benign intracranial hypertension; Translations: [Benign intracranial hypertension] Onset: 3 Chronic Other nervous system disorders (2 sources) Raised intracranial pressure 11-21-2022 Chronic Other nervous system disorders (1 source) Benign intracranial hypertension; Translations: [Idiopathic intracranial hypertension] Onset: 3 Chronic Other nervous system disorders (5 sources) Ulnar neuropathy; 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 nerve, unspecified upper limb] Onset: 4 01-31-2024 Chronic Other nervous system disorders (6 sources) Chronic pain; Translations: [Other chronic pain] Onset: 4 01-31-2024 Chronic Other nervous system disorders (19 sources) Chronic pain syndrome 09-30-2024 Chronic Other nervous system disorders (1 source) Postoperative pain ; Translations: [Other acute postprocedural pain] Episodic Other nervous system disorders (1 source) Dysphasia; Translations: [Dysphasia] Onset: 3 Episodic Other nervous system disorders (4 sources) Ataxia; Translations: [Ataxia, unspecified] 09-21-2024 Episodic Other nervous system disorders (1 source) Ataxia, unspecified; Translations: [Ataxia, unspecified] Onset: 5 Episodic Other nutritional; endocrine; and metabolic disorders [...] Chronic Other nutritional; endocrine; and metabolic disorders (20 sources) Body mass index 30+ - obesity; Translations: [Obesity, unspecified] Onset: 1 09-24-2022 Chronic Other nutritional; endocrine; and metabolic disorders (1 source) Obesity caused by energy imbalance; Translations: [Other obesity due to excess calories] 03-08-2024 Chronic Other nutritional; endocrine; and metabolic disorders (1 source) Hypercalcemia; Translations: [Hypercalcemia] 07-01-2024 Chronic Other nutritional; endocrine; and metabolic disorders (20 sources) Overweight in adulthood with body mass index of 25 or more but less than 30; Translations: [Body mass index (BMI) 29.0-29.9, adult] Onset: 2 Episodic Other nutritional; endocrine; and metabolic disorders (15 sources) Overweight; Translations: [Overweight] Onset: 2 Episodic Other nutritional; endocrine; and metabolic disorders (20 sources) Body mass index 25-29 - overweight; Translations: [Overweight] Onset: 2 11-20-2021 Episodic Other skin disorders (1 source) Skin finding; Translations: [Excessive and redundant skin and subcutaneous tissue] Episodic Other skin disorders (3 sources) Loss of hair; Translations: [Nonscarring hair loss, unspecified] 09-15-2024 Episodic Personality disorders (20 sources) Borderline personality disorder; Translations: [Borderline personality disorder] Onset: 0 05-23-2020 Chronic Poisoning by psychotropic agents (20 sources) Intentional benzodiazepine overdose; Translations: [Poisoning by benzodiazepines, intentional self-harm, initial encounter] 04-21-2022 Episodic Residual codes; unclassified (7 sources) Patient encounter status; Translations: [Encounter for [...] uterus] Onset: 3 Episodic Residual codes; unclassified (7 sources) Family history of ischemic heart disease; Translations: [Family history of ischemic heart disease and other diseases of the circulatory system] Onset: 4 08-13-2024 Episodic Substance-related disorders (20 sources) Smoker; Translations: [Nicotine dependence] Onset: 2 03-06-2015 Chronic Comment on above: Added secondary to d ocumentation in Social History. Syncope (1 source) Syncope and collapse; Translations: [Syncope and collapse] Onset: 5 Episodic Unclassified (5 sources) History of clinical finding [...] gangrene] Resolved: 07-24-2021 Episodic Acquired foot deformities (10 sources) Acquired bilateral pes planus; Translations: [Flat [...] Translations: [Dehydration] Onset: 01-26-2021 Resolved: 02-25-2021 Episodic Malaise and fatigue (9 sources) Asthenia; Translations: [Weakness] Onset: 01-31-2024 01-31-2024 Episodic Menstrual disorders (6 sources) Excessive and frequent menstruation with irregular cycle; Translations: [Menorrhagia] Onset: 10-30-2022 Resolved: 05-27-2023 Chronic Nutritional deficiencies (5 sources) Iron deficiency; Translations: [Serum iron low] Onset: 05-27-2023 05-27-2023 Episodic Other complications of (20 sources) Poor growth affecting management; Translations: [Maternal care for other known or suspected poor growth, unspecified trimester, not applicable or unspecified] Onset: 07-03-2008 Resolved: 03-08-2024 07-03-2008 Episodic Other connective tissue disease (10 sources) Pain in both feet; Translations: [Pain [...] SPEC DISORDERS PERITONEUM] Onset: 11-19-2021 Episodic Other lower respiratory disease (11 sources) Dyspnea; Translations: [Shortness of breath] Onset: 08-08-2024 08-13-2024 Episodic Other lower respiratory disease (2 sources) Shortness of breath; Translations: [Shortness of breath] Onset: 08-08-2024 Episodic Other nervous system disorders (5 sources) Numbness; Translations: [Anesthesia of skin] Onset: 01-31-2024 01-31-2024 Episodic Other nervous system disorders (10 sources) Paresthesia; Translations: [Paresthesia of skin] Onset: 01-31-2024 01-31-2024 Episodic Other nutritional; endocrine; and metabolic disorders [...] [Body mass index (BMI) 29.0-29.9, adult] Onset: 08-08-2024 Episodic Other screening for suspected conditions (not mental disorders or infectious disease) (3 sources) Mammography abnormal; Translations: [Other abnormal and inconclusive findings on diagnostic imaging of breast] Onset: 07-11-2024 07-06-2024 Episodic Other upper respiratory infections (8 sources) Acute upper respiratory infection, unspecified; Translations: [Acute pharyngitis, unspecified] Onset: 12-01-2002 Episodic Otitis media and related conditions (2 sources) Acute suppurative otitis media without spontaneous rupture [...] states] Onset: 11-20-2022 Episodic Residual codes; unclassified (19 sources) Family history of malignant neoplasm of pancreas; Translations: [Family history of malignant neoplasm of digestive organs] Onset: 03-08-2024 03-08-2024 Episodic Residual codes; unclassified (19 sources) Family history of cancer; Translations: [Family history of malignant neoplasm, unspecified] Onset: 03-08-2024 03-08-2024 Episodic Residual codes; unclassified (4 sources) Family history of ischemic heart disease and other diseases of the circulatory system; Translations: [Family history of ischemic heart disease and other diseases of the circulatory system] Onset: 08-08-2024 Episodic Screening and history of mental health and substance abuse codes (20 sources) History of clinical finding in subject; Translations: [Personal history of nicotine dependence] Onset: 05-23-2020 05-23-2020 Episodic Spondylosis; intervertebral disc disorders; other back problems (4 sources) Backache; Translations: [Dorsalgia, unspecified] Onset: 06-13-2002 Episodic Sprains and strains (6 sources) Injury of muscle and tendon at [...] Test Name Value Interpretation Reference Range Facility Main OR Intraoperative Recor don 03-03-2025 Main OR Intraoperative Record Main OR Intraoperative Record IntraOp Document Type FTPM Summary Primary Physician: Babar Mayers DO Finalized Date/Time: 03/03/25 08:45:29 Pt. Name: SHAZIA CHOU/Sex: 1990 Female Med Rec #: [id number] Physician: Babar Mayers DO Financial #: [id number] Pt. Type: P Room/Bed: / Admit/Disch: 03/03/25 07:21:36 - Institution: Case Times FTPM Entry 1 Patient Times In Room 03/03/25 08:33:00 Out Room 03/03/25 08:45:00 Procedure Times Start 03/03/25 08:36:00 Stop 03/03/25 08:44:00 Anesthesia Times Last Modified By: Corby Rand RN 03/03/25 08:44:14 Case Attendance FTPM Entry 1 Entry 2 Entry 3 Case Attendee Talib SNOWDEN, Babar Rand RN, Corby Burrows RN, Lulu Bellamy Role Performed Surgeon - Primary Lottery Clerk - Primary Scrub - Primary Time In 03/03/25 08:33:00 03/03/25 08:33:00 03/03/25 08:33:00 Time Out 03/03/25 08:45:00 03/03/25 08:45:00 03/03/25 08:45:00 Procedure MEDIAL BRANCH MEDIAL BRANCH MEDIAL BRANCH BLOCK(Bilateral) BLOCK(Bilateral) BLOCK(Bilateral) Comments Last Modified By: Giorgi ROLLE, Corby Rand RN, Corby Bell RN 03/03/25 08:44:15 03/03/25 08:44:15 03/03/25 08:44:15 Entry 4 Case Attendee Amina Allen (R) Role Performed Conservation Enforcement Officer Time In 03/03/25 08:33:00 Time Out 03/03/25 08:45:00 Procedure MEDIAL BRANCH BLOCK(Bilateral) Comments Last Modified By: Corby Rand RN 03/03/25 08:44:15 Perioperative Protocols FTPM Pre-Care Text: Implements protective measures prior to operative or invasive procedure, confirms identity before the operative or invasive procedure, verifies operative procedure, surgical site, and laterality Entry 1 Procedure(s) MEDIAL BRANCH Patient Identity Birthday, ID Band BLOCK(Bilateral) Verified (select at Check, Patient least 2): Participation Consents / H and P H&P, Surgery/Procedure Operative Site Present Verified Consent Marking Verified Surgical Site Yes Laterality Verified Yes Verified Procedure Verified Yes Correct Patient Yes Position Verified Availability Equipment, Medication, Prep Dry Yes Verified (If X-ray Applicable) PreOp Antibiotic No Time Out Giorgi Corby ROLLE Roderick RN, Talib Patino DO, Bradford A., Christman RT(R), Amina Time Out Complete 03/03/25 08:33:00 Outcomes Met? Yes Last Modified By: Corby Rand RN 03/03/25 08:32:47 Post-Care Text: The patient is free from signs and symptoms of injury caused by extraneous objects Allergy Information FTPM Pre-Care Text: Verifies allergies Entry 1 Allergies Reviewed? Yes Allergies Reviewed Self/Patient With Outcomes Met? Yes Last Modified By: Corby Rand RN 03/03/25 08:34:03 Post-Care Text: The patient received appropriate medication(s) safely administered during the perioperative period Surgical Procedures FTPM Entry 1 Procedure Description Procedure MEDIAL BRANCH BLOCK Modifiers Bilateral Surgeon Description MBB COVERING THE L4-S1 FACET JTS Primary Procedure Yes Primary Surgeon Babar Mayers DO Start 03/03/25 08:36:00 Stop 03/03/25 08:44:00 Anesthesia Type None Surgical Service Pain Management Wound Class 1 - Clean Last Modified By: Corby Rand RN 03/03/25 08:44:17 General Case Data FTPM Pre-Care Text: Classifies surgical wound, implements aseptic technique, initiates traffic control Entry 1 Case Information OR Pain Proc Room Case Level Level 2 Wound Class 1 - Clean Specialty Pain Management Preop Diagnosis M47.816 Postop Same As Preop Yes Postop Diagnosis M47.816 Outcomes Met? Yes Last Modified By: Corby Rand RN 03/03/25 08:34:11 Post-Care Text: The patient is free from signs and symptoms of infection Skin Assessment (Pre Procedure) FTPM Pre-Care Text: Implements protective measures to prevent skin/ tissue injury due to thermal or mechanical sources Evaluates for signs and symptoms of physical injury to skin and tissue Entry 1 Skin Integrity Intact, [place], Warm, & Skin Abnormality No Dry Outcomes Met? Yes Last Modified By: Corby Rand RN 03/03/25 08:34:19 Post-Care Text: The patient is free from signs and symptoms of injury caused by extraneous objects Patient Positioning FTPM Pre-Care Text: Identifies physical alterations that require additional precautions for procedure-specific positioning, verifies presence of prosthetics or corrective devices, positions the patient, evaluates the patient for signs and symptoms of injury as a result of positioning Entry 1 Procedure MEDIAL BRANCH Body Position Prone BLOCK(Bilateral) Feet Uncrossed? Yes Left Arm Position Resting at Side Right Arm Position Resting at Side Left Leg Position Extended Right Leg Position Extended Positioning Device Pillow Under Head Large, Safety Strap, Pillow Large Under Knees Press Points Checked Ye (more content not included)... Normal [facility] Main OR Preoperative Recordo n 03-03-2025 Main OR Preoperative Record Main OR Preoperative Record Holding Area Document Type FTPM Summary Primary Physician: Babar Mayers DO Finalized Date/Time: 03/03/25 07:33:54 Pt. Name: SHAZIA CHOU/Sex: 1990 Female Med Rec #: [id number] Physician: Babar Mayers DO Financial #: [id number] Pt. Type: P Room/Bed: / Admit/Disch: 03/03/25 07:21:36 - Institution: Case Times Holding FT Pre-Care Text: Verifies consent for planned procedure, identifies individual values and wishes concerning care, includes family members in perioperative teaching Secures patient's records' belongings, and valuables, maintains patient's dignity and privacy, and maintains patient confidentiality Entry 1 In Holding 03/03/25 07:28:00 Outcomes Met? Yes Last Modified By: Kayy ROLLE, Gabrielle Blue 03/03/25 07:28:18 Post-Care Text: The patient participates in decisions affecting his or her perioperative plan of care The patient's right to privacy is maintained Surgery Checklist FTPM Entry 1 Patient Birthday, ID Band Procedure History and Physical, Identification: Check, Patient Verification: Surgical Consent, With Participation Patient NPO after Midnight: No Date/Time: 03/03/25 07:28:00 Results Reviewed 0700 coffee and protien Personal Items: Dentures, Glasses, Comments: shake Jewelry Personal Items Pt. wearing a watch, Complaints of Pain: Yes Comment: three rings, one bracelet and ten earrings. Pain Comment: 6/10 lower back pain Operative Site Yes Marking: Marked By: Dr. Mayers Location: bilateral L4-S1 Availability Equipment, X-Ray Verified: Does Patient Smoke Yes If Yes to Smoking. 1 PPD cigarettes Cigars or Cigarettes. How much per day? Patient states Yes Comment - Adult -[place] postop adult Supervision supervision available Case Cancelled in No Holding Area see comments below for reason Last Modified By: Gabrielle Sultana RN 03/03/25 07:30:10 Finalized By: Gabrielle Sultana RN Document Signatures Signed By: Gabrielle Sultana RN 03/03/25 07:33 Normal [facility] CBC w/Indiceson 03-02-2025 Erythrocyte distribution width (RBC) [Ratio] 14.4 % High 10.9-14.2 [facility] Comment on above: Performed By: #### 2 [id number] #### [facility] [address] [place] [address] Hematocrit (Bld) [Volume fraction] 39.0 % Normal 34.0-46.0 [facility] Comment on above: Performed By: #### 2 [id number] #### [facility] [address] [place] [address] Hemoglobin (Bld) [Mass/Vol] 13.2 g/dL Normal 12.0-16.0 [facility] Comment on above: Performed By: #### 2 [id number] #### [facility] [address] [place] [address] MCH (RBC) [Entitic mass] 33.5 pg Normal 27.0-34.0 [facility] Comment on above: Performed By: #### 2 [id number] #### [facility] [address] [place] [address] MCHC (RBC) [Mass/Vol] 33.8 g/dL Normal 31.4-36.0 [place] Comment on above: Performed By: #### 2 [id number] #### [facility] [address] [place] [address] MCV (RBC) [Entitic vol] 99.1 fL Normal 80.0-100.0 [facility] Comment on above: Performed By: #### 2 [id number] #### [facility] [address] [place] [address] Platelet 325.0 E9/L Normal 150.0-500.0 [facility] Comment on above: Performed By: #### 2 [id number] #### [facility] [address] [place] [address] Platelet mean volume (Bld) [Entitic vol] 9.5 fL Normal 6.4-10.8 [facility] Comment on above: Performed By: #### 2 [id number] #### [facility] [address] [place] [address] RBC 3.9 E12/L Low 4.3-5.9 [facility] Comment on above: Performed By: #### 2 [id number] #### [facility] [address] [place] [address] RBC morphology finding Nom (Bld) NORMAL Invalid Interpretation Code [facility] Comment on above: Performed By: #### 2 [id number] #### [facility] [address] [place] [address] WBC 13.1 E9/L High 4.0-11.0 [facility] Comment on above: Performed By: #### 2 [id number] #### [facility] [address] [id number] CHEMISTRYOrdered By: SYSTEM SYSTEM on 03-02-2025 Ferritin [Mass/Vol] 11 ng/mL Normal 11 - 307 ng/mL Rem[facility] Chem Iron [Mass/Vol] 156 ug/dL High 35 - 153 mcg/dL [facility] Chem Iron binding capacity [Mass/Vol] 403 ug/dL High 250 - 400 mcg/dL [facility] Chem Transferrin [Mass/Vol] 288 mg/dL Normal 200 - 370 mg/dL [facility] Chem Ferritinon 03-02-2025 Ferritin Lvl 11 ng/mL Normal 11-307 [facility] Comment on above: Performed By: #### 2 [id number] #### [facility] [address] [place] [address] HEMATOLOGYOrdered By: SYSTEM SYSTEM on 03-02-2025 Erythrocyte distribution width (RBC) [Ratio] 14.4 % High 10.9 - 14.2 % Remisol Heme Hematocrit (Bld) [Volume fraction] 39.0 % Normal 34.0 - 46.0 % Remisol Heme Hemoglobin (Bld) [Mass/Vol] 13.2 g/dL Normal 12.0 - 16.0 gm/dL Rem[facility] Heme MCH (RBC) [Entitic mass] 33.5 pg Normal 27.0 - 34.0 pg Remisol Heme MCHC (RBC) [Mass/Vol] 33.8 g/dL Normal 31.4 - 36.0 gm/dL Remisol Heme MCV (RBC) [Entitic vol] 99.1 fL Normal 80.0 - 100.0 fL [facility] Heme Platelet mean volume (Bld) [Entitic vol] 9.5 fL Normal 6.4 - 10.8 fL Remisol Heme Platelets (Bld) [#/Vol] 325.0 E9/L Normal 150.0 - 500.0 E9/L Remisol Heme RBC (Bld) [#/Vol] 3.9 E12/L Low 4.3 - 5.9 E12/L Remisol Heme RBC size Nom (Bld) NORMAL *NA* (03/02/25 8:35 AM) Invalid Interpretation Code Rem[facility] Heme WBC corrected for nucl RBC Auto (Bld) [#/Vol] 13.1 E9/L High 4.0 - 11.0 E9/L Rem[facility] Heme Ironon 03-02-2025 Iron 156 microgram/dL High 35-153 [facility] Comment on above: Performed By: #### 2 [id number] #### [facility] [address] [place] [address] TIBC Calculatedon 03-02-2025 TIBC 403 microgram/dL High 250-400 [facility] Comment on above: Performed By: #### 1 [id number] #### [facility] [address] [place] [address] Transferrin [Mass/Vol] 288 mg/dL Normal 200-370 [facility] Comment on above: Performed By: #### 1 [id number] #### [facility] [address] [place] [address] ED Note-Physicianon 02-22-20 ED Note-Physician ED Note-Physician Basic Information Time Seen: Ben Garber PA-C 02/17/2025 18:57 Chief Complaint pt has been sick for 2 weeks. per pt she is being treated for pna. having dizziness for a few weeks. started having coughing spell earlier when she got more dizzy and felt lightheaded. pt c/o headache since History of Present Illness Patient is a 34-year-old female presents today via EMS for evaluation of her cough and congestion as well as her feelings of dizziness, lightheadedness and headache. Patient states that she has not been feeling well with cough and congestion for about 2 weeks now. She been having a lot of coughing spells. Was started on antibiotics and steroids and today she had a coughing spell that made her feel really dizzy and lightheaded afterwards. Does have a mild headache as well. She did not pass out or lose conscious. She did not hit her head. She is on any blood thinners. She denies any chest pain but has been having intermittent shortness of breath with her cough and congestion. Denies any nausea, vomiting, abdominal pain. She is not on any oral contraceptives. No recent surgery or travel. Review of Systems No other aggravating or relieving factors no other associated symptoms no other prior treatments or complaints. Family: Reviewed and noncontributory Social: lives at home Review of systems negative unless otherwise specified in the HPI. Physical Exam Vitals & Measurements T: 36.7 ???C(Oral) HR: 77(Peripheral) RR: 18 BP: 138/88 SpO2: 100% HT: 170 cm WT: 90.4 kg BMI: 31.28 General: The patient appears well and in [...] deformity Musculoskeletal: normal ROM, no deformity, no swelling GI: Soft no obvious distention. No rebound or rigidity. No guarding. No tenderness. Neurological: A&O moves all extremities equal strength and symmetry. No ataxia with finger-nose or [id number]. Intact strength and sensation of bilateral upper and lower extremities. No Dysphasia. Psychiatric: Cooperative and appropriate Procedure [x]The patient has acute bronchitis/bronchioliti s and antibiotics were not prescribed or dispensed today.[SATISFIES MIPS PERFORMANCE] [] The patient has acute bronchitis/bronchioliti s. Antibiotics were prescribed or dispensed because the patient meets one of the following: [MIPS PERFORMANCE EXCEPTION/EXCLUSION] [] Patient has a medical reason for prescribing or dispensing an antibiotic. That reason is [] (ex. COPD, bacterial infection, acute sinusitis, etc.). [] Patient is currently on antibiotics or has been in the last 30 days. [] Patient's visit resulted in an inpatient admission. []The patient has acute bronchitis/bronchioliti sand antibiotics were prescribed or dispensed today. [DOES NOT SATISFY MIPS PERFORMANCE] Medical Decision Making Patient is a 34-year-old female who presents today via EMS for evaluation of cough and congestion as well as feelings of dizziness lightheadedness and headache. She has had cough and congestion for about 2 weeks now and was just started on antibiotics and steroids by her PCP. Has had some intermittent shortness of breath. She had a coughing spell that lasted so long and was so hard that she became dizzy and lightheaded afterwards. Now has a mild headache. On exam patient is afebrile and nontoxic-appearing. She is not tachycardic or hypotensive. No tachypnea. SpO2 100% on room air. CTA to bilateral lung bee. RRR. Abdomen soft nontender. PERRLA, EOMI. Unremarkable neuroexam. Given patient's initial complaints labs, EKG, chest x-ray is obtained. Patient is given a dose of Toradol, meclizine, liter of fluids for symptomatic management. EKG demonstrates NSR. Labs are WNL including troponin. UA negative for UTI. Single view chest x-ray is negative for any acute cardiopulmonary process. Patient likely has bronchitis given negative workup. She is already on antibiotics as prescribed by her PCP, no further antibiotics are necessary at this time. She does note that her cough and congestion are getting a little bit better with the antibiotics and steroids and so she will continue on these. She likely had a vasovagal response after coughing which we discussed at length. We will provide her with Bromfed for further symptomatic management. She will be discharged home with close follow-up with her PCP. We discussed if she has new or worsening symptoms she should promptly return to the ED for reevaluation. Return to ED precautions were reviewed with the patient at length. Assessment/Plan Bronchitis (J40: Bronchitis, not specified as acute or chronic) Cough (R05.9: Cough, unspecified) Dizzi (more content not included)... Normal [facility] Comment on above: Result Comment: Elec tronically Signed By: Ben Garber PA-C\.br\Date and Time Signed: 02/17/25 20:20 EDT\.br\Electronically Co-Signed By: Bakari Chester DO\.br\Date and Time Co-Signed: 02/21/25 20:08 EDT XR Chest Single Viewon 02-18 XR Chest Single View Exam Date/Time: 02/17/2025 19:33 EDT Reason for Exam: Chest pain Report IMPRESSION: NO RADIOGRAPHIC EVIDENCE OF ACUTE INTRATHORACIC PROCESS. EXAM: XR Chest Single View History: Chest pain Technique: Portable AP view of the chest. Comparison: 02/16/2025 radiographs Findings: The cardiomediastinal silhouette is within normal limits. No pneumothorax, pleural effusion, or consolidation. No acute osseous abnormality. Ordering Provider: Ben Garber FINAL REPORT Dictated: 02/18/2025 8:08 am Rahul Faith DO Signed (Electronic Signature): 02/18/2025 8:08 am Signed by: Rahul Faith DO Transcribed by: MARCO Technologist: DANISH Normal [facility] BMPon 02-17-2025 Anion gap [Moles/Vol] 14 mmol/L Normal 6-16 [place] Comment on above: Performed By: #### 2 [id number] #### [facility] [address] [place] [address] BUN/Creat Ratio 16 No Units Normal 10-20 [facility] Comment on above: Performed By: #### 2 [id number] #### [facility] [address] [place] [address] Calcium [Mass/Vol] 10.4 mg/dL Normal 8.9-11.1 [facility] Comment on above: Performed By: #### 2 [id number] #### [facility] [address] [place] [address] Chloride [Moles/Vol] 105 mmol/L Normal 101-111 [facility] Comment on above: Performed By: #### 2 [id number] #### [facility] [address] [place] [address] CO2 [Moles/Vol] 21 mmol/L Normal 21-31 [facility] Comment on above: Performed By: #### 2 337010 #### [facility] [address] [place] [address] Creatinine [Mass/Vol] 0.7 mg/dL Normal 0.5-1.3 [place] Comment on above: Performed By: #### 2 [id number] #### [facility] [address] [place] [address] Glucose [Mass/Vol] 109 mg/dL Normal 55-199 [facility] Comment on above: Performed By: #### 2 [id number] #### [facility] [address] [place] [address] Potassium [Moles/Vol] 3.8 mmol/L Normal 3.5-5.3 [place] Comment on above: Performed By: #### 2 [id number] #### [facility] [address] [place] [address] Sodium [Moles/Vol] 136 mmol/L Normal 135-145 [facility] Comment on above: Performed By: #### 2 [id number] #### [facility] [address] [place] [address] Urea nitrogen [Mass/Vol] 11 mg/dL Normal 5-21 [facility] Comment on above: Performed By: #### 2 701148 #### [facility] [address] [place] [address] CBC w/ Auto Diffon 5 Basophil Absolute 0.0 E9/L Normal 0.0-0.2 [facility] Comment on above: Performed By: #### 2 [id number] #### [facility] [address] [place] [address] Basophils/100 WBC (Bld) 0.3 % Normal 0.0-2.0 [facility] Comment on above: Performed By: #### 2 [id number] #### [facility] [address] [place] [address] Eos Absolute 0.0 E9/L Normal 0.0-0.5 [facility] Comment on above: Performed By: #### 2 [id number] #### [facility] [address] [place] [address] Eosinophils/100 WBC (Bld) 0.2 % Normal 0.0-8.0 [facility] Comment on above: Performed By: #### 2 [id number] #### [facility] [address] [place] [address] Erythrocyte distribution width (RBC) [Ratio] 14.2 % Normal 10.9-14.2 [facility] Comment on above: Performed By: #### 2 [id number] #### [facility] [address] [place] [address] Hematocrit (Bld) [Volume fraction] 40.2 % Normal 34.0-46.0 [facility] Comment on above: Performed By: #### 2 [id number] #### [facility] [address] [place] [address] Hemoglobin (Bld) [Mass/Vol] 13.6 g/dL Normal 12.0-16.0 [facility] Comment on above: Performed By: #### 2 666183 #### [facility] [address] [place] [address] Lymph Absolute 1.4 E9/L Normal 1.0-4.0 [facility] Comment on above: Performed By: #### 2 [id number] #### [facility] [address] [place] [address] Lymphocytes/100 WBC (Bld) 16.5 % Normal 14.0-50.0 [facility] Comment on above: Performed By: #### 2 [id number] #### [facility] [address] [place] [address] MCH (RBC) [Entitic mass] 32.6 pg Normal 27.0-34.0 [facility] Comment on above: Performed By: #### 2 547054 #### [facility] [address] [place] [address] MCHC (RBC) [Mass/Vol] 33.8 g/dL Normal 31.4-36.0 [place] Comment on above: Performed By: #### 2 [id number] #### [facility] [address] [place] [address] MCV (RBC) [Entitic vol] 96.4 fL Normal 80.0-100.0 [facility] Comment on above: Performed By: #### 2 [id number] #### [facility] [address] [place] [address] Potter Absolute 0.5 E9/L Normal 0.2-1.0 [facility] Comment on above: Performed By: #### 2 086408 #### [facility] [address] [place] [address] Monocytes/100 WBC (Bld) 5.7 % Normal 4.0-14.0 [facility] Comment on above: Performed By: #### 2 290235 #### [facility] [address] [place] [address] Neutro Absolute 6.5 E9/L Normal 2.0-7.5 [facility] Comment on above: Performed By: #### 2 633006 #### [facility] [address] [place] [address] Neutro Auto 77.3 % High 36.0-75.0 [facility] Comment on above: Performed By: #### 2 [id number] #### [facility] [address] [place] [address] Platelet 350.0 E9/L Normal 150.0-500.0 [facility] Comment on above: Performed By: #### 2 [id number] #### [facility] [address] [place] [address] Platelet mean volume (Bld) [Entitic vol] 9.3 fL Normal 6.4-10.8 [facility] Comment on above: Performed By: #### 2 [id number] #### [facility] [address] [place] [address] RBC 4.2 E12/L Low 4.3-5.9 [facility] Comment on above: Performed By: #### 2 529888 #### [facility] [address] [place] [address] WBC 8.4 E9/L Normal 4.0-11.0 [facility] Comment on above: Performed By: #### 2 146206 #### [facility] [address] [place] [address] CHEMISTRYOrdered By: SYSTEM SYSTEM on 02-17-2025 Albumin [Mass/Vol] 4.5 g/dL Normal 3.3 - 5.0 gm/dL Rem[facility] Chem Albumin/Globulin [Mass ratio] 1.5 {ratio} Normal 1.1 - 2.2 [facility] Chem ALP [Catalytic activity/Vol] 55 [iU]/d Normal 21 - 98 Int._Unit/L [facility] Chem ALT No additional P-5'-P [Catalytic activity/Vol] 12 [iU]/d Normal 6 - 46 Int._Unit/L [facility] Chem Anion gap [Moles/Vol] 14 mmol/L Normal 6 - 16 mEq/L R emisol Chem AST [Catalytic activity/Vol] 17 [iU]/d Normal 5 - 43 Int._Unit/L [facility] Chem Bilirubin [Mass/Vol] 0.4 mg/dL Normal 0.0 - 1 .1 mg/dL [facility] Chem Bilirubin.direct [Mass/Vol] 0.1 mg/dL Normal 0.0 - 0.4 mg/dL [facility] Chem Bilirubin.indirect [Mass or moles/Vol] 0.3 mg/dL Normal 0.1 - 0.9 mg/dL [facility] Chem Calcium [Mass/Vol] 10.4 mg/dL Normal 8.9 - 11. 1 mg/dL [facility] Chem Chloride [Moles/Vol] 105 mmol/L Normal 101 - 1 11 mmol/L [facility] Chem CO2 [Moles/Vol] 21 mmol/L Normal 21 - 31 mmol/L [facility] Chem Creatinine [Mass/Vol] 0.7 mg/dL Normal 0.5 - 1.3 mg/dL [facility] Chem GFR/1.73 sq M.predicted MDRD (S/P/Bld) [Vol rate/Area] 115 mL/min/1.73 m2 Normal >=59mL/min/1 .73 m2 [facility] Chem Globulin (S) [Mass/Vol] 3.0 g/dL Normal 1.4 - 4.0 gm/dL [facility] Chem Glucose [Mass/Vol] 109 mg/dL Normal 55 - 199 mg/dL [facility] Chem Magnesium [Mass/Vol] 1.8 mg/dL Normal 1.3 - 2 .4 mg/dL [facility] Chem Potassium [Moles/Vol] 3.8 mmol/L Normal 3.5 - 5.3 mmol/L [facility] Chem Protein [Mass/Vol] 7.5 g/dL Normal 6.0 - 7.8 gm/dL [facility] Chem Sodium [Moles/Vol] 136 mmol/L Normal 135 - 145 mmol/L [facility] Chem Troponin HS pg/mL Low 10.10 - 27.10 pg/mL [facility] Comment on above: Interpretive Data: T he 95% CI (Confidence Interval) PPV (Positive Predictive Value) for myocardial infarction in females is 38 pg/mL, in males 51 pg/mL. The results should be used in conjunction with clinical conditions of myocardial infarction. (Access High Sensitivity Troponin I Instructions For Use, Carter Hildreth, April 2018) Urea nitrogen [Mass/Vol] 11 mg/dL Normal 5 - 21 mg/dL [facility] Urea nitrogen/Creatinine [Mass ratio] 16 mg/mg Normal 10 - 20 [facility] Chem COAGULATIONOrdered By: Peng Kahn on 02-17-2025 aPTT Coag (PPP) [Time] 30.7 s Normal 25.1 - 36.5 second(s) [facility] Auto Coag Comment on above: Interpretive Data: P arameter 15 days - 4 weeks 1 - 5 months 6 - 11 months 1 - 5 years 6 - 10 years 11 - 17 years PTT Mean: 35.4 (27.6-45.6) Mean: 33.5 (24.8-40.7) Mean: 32.4 (25.1-40.7) Mean: 31.6 (24.0-39.2) Mean: 31.6 (26.9-38.7) Mean: 31.0 (24.6-38.4) Pediatric Reference ranges were obtained from a study by arlen Snyder alEusebio prepared from 1437 samples obtained at 7 different centers using the same coagulation reagent and instrumentation as [facility]. Currently there are no coagulation studies available worldwide for children to 14 days, and no normal ranges. Heparin therapeutic range (represented by Anti-Factor Xa activity of 0.2 - 0.4 U/mL) corresponds to PTT of 56.6 - 109.0 sec. INR Coag (PPP) [Relative time] 0.88 {INR} Invalid Interpretation Code [facility] Auto Coag Comment on above: Interpretive Data: I NR results are specifically intended to assess patients stabilized on long-term Anticoagulation therapy suggested INR s Less Intensive Anticoagulation 2.0 3.0 Conventional Range 3.0 4.5 PT Coag (PPP) [Time] 9.8 s Normal 9.4 - 1 2.5 second(s) [facility] Auto Coag Comment on above: Interpretive Data: 1 5 days - 4 weeks 1 - 5 months 6 -11 months 1-5 years 6-10 years 11 -17 years Mean: 11.2 (9.5-12.6) Mean: 11.0 (9.7-12.8) Mean: 11.0 (9.8-13.0) Mean: 11.3 (9.9-13.4) Mean: 11.7 (10.0-14.6) Mean: 11.8 (10.0 - 14.1) Pediatric Reference ranges were obtained from a study by arlen Snyder alEusebio prepared from 1437 samples obtained at 7 different centers using the same coagulation reagent and instrumentation as [facility]. Currently there are no coagulation studies available worldwide for children to 14 days, and no normal ranges. ED Clinical Summaryon 2024 ED Clinical Summary ED Clinical Summary [address] [address] ED Clinical Summary Person Information Name: SHAZIA CHOU [facility] Age: 34 Years : 1990 Sex: Female Language: Guinean PCP: Jennie Durand DO Marital Status: Phone: [phone] Visit Id: Visit Reason: Headache; Cough; Dizziness; DIZZINESS Speciality: Acuity: 3 Enc Type: Emergency Med Service: Emergency Arrival: 02/17/2025 18:53:55 Discharge: 02/17/2025 21:08:45 LOS: 000 02:15 Checkin: 02/17/2025 18:53:55 Checkout: 02/17/2025 21:08:45 Dispo Type: Home (Routine DC) EVENTS: Event Name Event Status Request Date/Time Start Date/Time Complete Date/Time Arrive Complete 02/17/2025 18:53:55 02/17/2025 18:53:55 02/17/2025 18:53:55 Document Home Meds Request 02/17/2025 18:53:55 Triage Complete 02/17/2025 18:53:55 02/17/2025 18:58:58 02/17/2025 18:58:58 Bed Assign Complete 02/17/2025 18:53:55 02/17/2025 18:53:55 02/17/2025 18:53:55 Dr Exam Complete 02/17/2025 18:53:55 02/17/2025 18:57:42 02/17/2025 18:57:42 RN Exam Complete 02/17/2025 18:53:55 02/17/2025 19:08:51 02/17/2025 19:08:51 EKG Complete 02/17/2025 18:57:17 02/17/2025 19:04:51 Registration Complete 02/17/2025 18:57:42 02/17/2025 19:19:41 02/17/2025 19:19:41 Dr Exam Complete 02/17/2025 18:58:48 02/17/2025 18:58:48 02/17/2025 18:58:48 Meds Admin Complete 02/17/2025 19:12:52 02/17/2025 19:24:05 Meds Admin Complete 02/17/2025 19:13:23 02/17/2025 19:24:06 Pending Labs Complete 02/17/2025 19:13:44 02/17/2025 19:56:49 Lab Complete 02/17/2025 19:13:44 02/17/2025 19:50:01 Patient Care Request 02/17/2025 19:13:44 X-Ray Complete 02/17/2025 19:13:44 02/17/2025 19:30:11 02/17/2025 19:33:20 Pending Labs Complete 02/17/2025 19:13:54 02/17/2025 19:35:55 Pending Labs Complete 02/17/2025 19:14:10 02/17/2025 19:50:28 Lab Complete 02/17/2025 19:14:10 02/17/2025 19:50:28 Reg Complete Request 02/17/2025 19:19:41 Reg Bed Request Complete 02/17/2025 19:19:41 02/17/2025 19:19:41 02/17/2025 19:19:41 Pending Labs Complete 02/17/2025 19:24:23 02/17/2025 19:24:23 02/17/2025 19:50:01 Lab Complete 02/17/2025 19:24:23 02/17/2025 19:24:23 02/17/2025 19:50:01 Wet Read Request 02/17/2025 19:33:20 Discharge Complete 02/17/2025 20:12:10 02/17/2025 21:08:51 02/17/2025 21:08:51 Transfer Complete 02/17/2025 21:08:51 02/17/2025 21:08:51 02/17/2025 21:08:51 ADDRESS: [address] [place] [id number] [facility] DOC NOTES: MEDICAL INFORMATION: Prescriptions Given: New Medications [id number], [address] [place], [place] [id number], [phone] brompheniramine/dextrom ethorphan/PSE (Bromfed DM oral syrup) 10 Milliliter By Mouth 4 times a day as needed for cold symptoms. Refills: 0. Medications to Continue with No Changes Other Medications acetaminophen (Tylenol) 325 Milligram By Mouth every 4 hours as needed as needed for pain. cariprazine (Vraylar) By Mouth every day. duloxetine (Cymbalta) 60 Milligram By Mouth 2 times a day. per dr chaparro. ferrous sulfate (ferrous sulfate 325 mg Tab) TAKE 1 TABLET BY MOUTH EVERY DAY FOR 30 DAYS. gabapentin (gabapentin 600 mg Tab) 1 Tablets By Mouth 3 times a day. Refills: 2. lamotrigine 100 Milligram By Mouth every day. multivitamin with minerals (Multi-Day Plus Minerals) By Mouth every day. semaglutide 2.4 Milligram Subcutaneous every week. trazodone 100 Milligram By Mouth once a day (at bedtime). PATIENT EDUCATION INFORMATION: Instructions: Near-Syncope; Acute Bronchitis, Adult Follow up: With: Address: When: Jennie Durand [facility] [address] , [place] [phone] Business (1) In 3 days 02/20/2025 DIAGNOSIS: Bronchitis; Cough; Dizziness; Vasovagal near syncope Normal [facility] ED Patient Summaryon 025 ED Patient Summary ED Patient Summary [address] [address] Patient Discharge Instructions Person Information Name: SHAZIA CHOU Age: 34 Years Arrival Date: 02/17/2025 18:53:55 Discharge Diagnosis: Bronchitis; Cough; Dizziness; Vasovagal near syncope Primary Care Physician: Jennie Durand DO Provider Information Primary Provider: Bakari Chester DO Advanced Apprentice Carpenter:Ben Garber PA-C. The exam and treatment you received in the Emergency Department were for an urgent problem and are not intended as complete care. It is important that you follow up with a doctor, nurse practitioner, or physician???s assistant printer floor covering for ongoing care. If your symptoms become worse or you do not improve as expected and you are unable to reach your usual health care provider, you should return to the Emergency Department. We are available 24 hours a day. JOSÉ ANTONIOKARINSHAZIA Isreal has been given the following list of patient education materials, prescriptions and follow-up instructions: Follow-up Instructions: With: Address: When: Jennie Durand [address], [address] [place] [address] Business (1) In 3 days 02/20/2025 In the event that this physician does not participate in your insurance network, please consult with your insurance company to find a nearby participating provider. Patient Education Materials: Near-Syncope; Acute Bronchitis, Adult A MESSAGE TO ALL PATIENTS REGARDING OPIOIDS PRESCRIPTION OPIOIDS: WHAT YOU NEED TO KNOW Prescription opioids can be used to help relieve udrshuov-jv-fokapk pain and are often prescribed following a [...] as well, even when taken as directed: ??? Tolerance???meaning you might need to take more of the medication for the same pain relief ??? Physical dependence???meaning you have symptoms of withdrawal when a medication is stopped ??? Increased sensitivity to pain ??? Constipation ??? Nausea, vomiting, and dry mouth ??? Sleepiness and dizziness ??? Confusion ??? Depression ??? Low levels of testosterone that can result in lower sex drive, energy, and strength ??? Itching and sweating RISKS ARE GREATER WITH: ??? History of drug misuse, substance use disorder, or overdose ??? Mental health conditions (such as depression or anxiety) ??? Sleep apnea ??? Older age (65 years and older) ??? Avoid alcohol while taking prescription opioids. Also, unless specifically advised by your health care provider, medications to avoid include: ??? Benzodiazepines (such as Xanax or Valium) ??? Muscle relaxants (such as Soma or Flexeril) ??? Hypnotics (such as Ambien or Lunesta) ??? Other prescription opioids KNOW YOUR OPTIONS Talk to your health care provider about ways to manage your pain that don???t involve prescription opioids. Some of these options may actually work better and have fewer risks and side effects. Options may include: ??? Pain relievers such as acetaminophen, ibuprofen, and naproxen ??? Some medication that are also used for depression or seizures ??? Physical therapy and exercise ??? Cognitive behavioral therapy, a psychological, goal-directed approach, in which patients learn how to modify physical, behavioral, and emotional triggers of pain and stress. IF YOU ARE PRESCRIBED OPIOIDS FOR PAIN: ??? Never take opioids in greater amounts or more often than prescribed. ??? Follow up with your primary health care provider. o Work together to create a plan on how to manage your pain. o Talk about ways to help manage your pain that don???t involve prescription opioids. o Talk about any and all concerns and side effects. ??? Help prevent misuse and abuse o Never sell or share prescription opioids. o Never use another person???s prescription opioids. ??? Store prescription opioids in a secure place and out of reach of others (this may include visitors, children, friends, and family). ??? Safely dispose of unused prescription opioids: Find your community drug take-back program or your pharmacy mail-back program, or flush them down the toilet, following guidance from the Food and Drug Administration (www.fda.gov/Drugs/Reso urcesForYou). ??? Visit www.cdc.gov/drugoverdos e to learn about the risks of opioids abuse and overdose. ??? If you believe you may be struggli (more content not included)... Normal [facility] HEMATOLOGYOrdered By: SYSTEM SYSTEM on 02-17-2025 Basophils/100 WBC (Bld) 0.3 % Normal 0.0 - 2.0 % Remisol Heme Basophils/Leukocytes Auto (Bld) [Pure # fraction] 0.0 E9/L Normal 0.0 - 0.2 E9/L Remisol Heme Eosinophils (Bld) [#/Vol] 0.0 E9/L Normal 0.0 - 0.5 E9/L Remisol Heme Eosinophils/100 WBC (Bld) 0.2 % Normal 0.0 - 8.0 % Remisol Heme Erythrocyte distribution width (RBC) [Ratio] 14.2 % Normal 10.9 - 14.2 % Remisol Heme Hematocrit (Bld) [Volume fraction] 40.2 % Normal 34.0 - 46.0 % Remisol Heme Hemoglobin (Bld) [Mass/Vol] 13.6 g/dL Normal 12.0 - 16.0 gm/dL Remisol Heme Lymphocytes (Bld) [#/Vol] 1.4 E9/L Normal 1.0 - 4.0 E9/L Remisol Heme Lymphocytes/100 WBC (Bld) 16.5 % Normal 14.0 - 50.0 % Remisol Heme MCH (RBC) [Entitic mass] 32.6 pg Normal 27.0 - 34.0 pg Remisol Heme MCHC (RBC) [Mass/Vol] 33.8 g/dL Normal 31.4 - 36.0 gm/dL Remisol Heme MCV (RBC) [Entitic vol] 96.4 fL Normal 80.0 - 100.0 fL Remisol Heme Monocytes (Bld) [#/Vol] 0.5 E9/L Normal 0.2 - 1.0 E9/L Remisol Heme Monocytes/100 WBC (Bld) 5.7 % Normal 4.0 - 14.0 % Remisol Heme Neutrophils (Bld) [#/Vol] 6.5 E9/L Normal 2.0 - 7.5 E9/L Remisol Heme Neutrophils/100 WBC (Bld) 77.3 % High 36.0 - 75.0 % Remisol Heme Platelet mean volume (Bld) [Entitic vol] 9.3 fL Normal 6.4 - 10.8 fL Remisol Heme Platelets (Bld) [#/Vol] 350.0 E9/L Normal 150.0 - 500.0 E9/L Remisol Heme RBC (Bld) [#/Vol] 4.2 E12/L Low 4.3 - 5.9 E12/L Remisol Heme WBC corrected for nucl RBC Auto (Bld) [#/Vol] 8.4 E9/L Normal 4.0 - 11.0 E9/L Remisol Heme Hep Func Panelon 02-17-2025 Albumin [Mass/Vol] 4.5 g/dL Normal 3.3-5.0 [facility] Comment on above: Performed By: #### 2 [id number] #### [facility] [address] [place] [address] Albumin/Globulin [Mass ratio] 1.5 {ratio} Normal 1.1-2.2 [facility] Comment on above: Performed By: #### 2 [id number] #### [facility] [address] [place] [address] Alk Phos 55 Int._Unit/L Normal 21-98 [facility] Comment on above: Performed By: #### 2 [id number] #### [facility] [address] [place] [address] ALT 12 Int._Unit/L Normal 6-46 [facility] Comment on above: Performed By: #### 2 [id number] #### [facility] [address] [place] [address] AST 17 Int._Unit/L Normal 5-43 [facility] Comment on above: Performed By: #### 2 [id number] #### [facility] [address] [place] [address] Bili Direct 0.1 mg/dL Normal 0.0-0.4 [facility] Comment on above: Performed By: #### 2 [id number] #### [facility] [address] [place] [address] Bili Indirect 0.3 mg/dL Normal 0.1-0.9 [facility] Comment on above: Performed By: #### 2 [id number] #### [facility] [address] [place] [address] Bili Total 0.4 mg/dL Normal 0.0-1.1 [facility] Comment on above: Performed By: #### 2 [id number] #### [facility] [address] [place] [address] Globulin (S) [Mass/Vol] 3.0 g/dL Normal 1.4-4.0 [facility] Comment on above: Performed By: #### 2 [id number] #### [facility] [address] [place] [address] Protein [Mass/Vol] 7.5 g/dL Normal 6.0-7.8 [facility] Comment on above: Performed By: #### 2 [id number] #### [facility] [address] [place] [address] Magnesiumon 02-17-2025 Magnesium [Mass/Vol] 1.8 mg/dL Normal 1.3-2.4 [facility] Comment on above: Performed By: #### 2 [id number] #### [facility] [address] [place] [address] PT & PTTon 02-17-2025 INR Coag (PPP) [Relative time] 0.88 {INR} Invalid Interpretation Code [facility] Comment on above: Result Comment: INR results are specifically intended to assess patients stabilized on long-term Anticoagulation therapy suggested INR???s ???Less Intensive Anticoagulation??? 2.0 ??? 3.0 Conventional Range 3.0 ??? 4.5 Performed By: #### 1 [id number] #### [facility] [address] [place] [address] PT 9.8 second(s) Normal 9.4-12.5 [facility] Comment on above: Result Comment: 15 d ays - 4 weeks 1 - 5 months 6 -11 months 1- 5 years 6-10 years 11 -17 years Mean: 11.2 (9.5-12.6) Mean: 11.0 (9.7-12.8) Mean: 11.0 (9.8-13.0) Mean: 11.3 (9.9-13.4) Mean: 11.7 (10.0-14.6) Mean: 11.8 (10.0 - 14.1) Pediatric Reference ranges were obtained from a study by Beni Wynne et al. prepared from 1437 samples obtained at 7 different centers using the same coagulation reagent and instrumentation as [facility]. Currently there are no coagulation studies available worldwide for children to 14 days, and no normal ranges. Performed By: #### 1 [id number] #### [facility] [address] [place] [address] PTT 30.7 second(s) Normal 25.1-36.5 [facility] Comment on above: Result Comment: Para meter 15 days - 4 weeks 1 - 5 months 6 - 11 months 1 - 5 years 6 - 10 years 11 - 17 years PTT Mean: 35.4 (27.6-45.6) Mean: 33.5 (24.8-40.7) Mean: 32.4 (25.1-40.7) Mean: 31.6 (24.0-39.2) Mean: 31.6 (26.9-38.7) Mean: 31.0 (24.6-38.4) Pediatric Reference ranges were obtained from a study by Beni Wynne et al. prepared from 1437 samples obtained at 7 different centers using the same coagulation reagent and instrumentation as [facility]. Currently there are no coagulation studies available worldwide for children to 14 days, and no normal ranges. Heparin therapeutic range (represented by Anti-Factor Xa activity of 0.2 - 0.4 U/mL) corresponds to PTT of 56.6 - 109.0 sec. Performed By: #### 1 [id number] #### [facility] [address] [place] [address] Pre-Arrival Noteon Pre-Arrival Note Pre-Arrival Note Pre-Arrival Summary [facility] Current Date: 02/17/2025 18:54:29 EDT Gender: Female Date of : Age: 34 Pre-Arrival Type: EMS ETA: 02/17/2025 19:10:00 EDT Primary Care Physician: Presenting Problem: dizziness Pre-Arrival User: Tania RNLibby Referring Source: Location: [place] Completion Date/Time: 02/17/2025 18:40:00 [facility] Emergency Department Pre-Hospital Report Form Vital Signs: Pre-Hospital Report: Treatment in Route: Response to Treatment: Misc. Issues: Normal [facility] Troponin 0 Hr.on 02-17-2025 Troponin HS <2.30 Low 10.10-27.10 [facility] Comment on above: Result Comment: The 95% CI (Confidence Interval) PPV (Positive Predictive Value) for myocardial infarction in females is 38 pg/mL, in males 51 pg/mL. The results should be used in conjunction with clinical conditions of myocardial infarction. (Access High Sensitivity Troponin I Instructions For Use, Carter Hildreth, April 2018) Performed By: #### 1 [id number] #### [facility] [address] [place] [address] UA with Cult Rflxon 02-18-20 25 Color (U) Light-Yellow Normal Yellow [facility] Comment on above: Result Comment: Micr oscopic readings are only performed on those samples that meet specific criteria set forth by [facility]. Performed By: #### 4 [id number] #### [facility] [address] [place] [address] Glucose (U) [Mass/Vol] Negative Normal Negative [facility] Comment on above: Performed By: #### 4 [id number] #### [facility] [address] [place] [address] Ketones Ql (U) Negative Normal Negative [facility] Comment on above: Performed By: #### 4 [id number] #### [facility] [address] [place] [address] UA Blood Negative Normal Negative [facility] Comment on above: Performed By: #### 4 [id number] #### [facility] [address] [place] [address] UA Bacteria Trace Normal Trace [facility] Comment on above: Performed By: #### 4 [id number] #### [facility] [address] [place] [address] UA Clarity Clear Normal Clear [facility] Comment on above: Performed By: #### 4 [id number] #### [facility] [address] [place] [address] UA Leuk Est 25 Keven/uL Normal Negative [facility] Comment on above: Performed By: #### 4 [id number] #### [facility] [address] [place] [address] UA Mucous Negative Normal Negative [facility] Comment on above: Performed By: #### 4 [id number] #### [facility] [address] [place] [address] UA Nitrite Negative Normal Negative [facility] Comment on above: Performed By: #### 4 [id number] #### [facility] [address] [place] [address] UA pH 7.5 Invalid Interpretation Code 5.0-9.0 [facility] Comment on above: Performed By: #### 4 [id number] #### [facility] [address] [place] [address] UA Protein Negative Normal Negative [facility] Comment on above: Performed By: #### 4 [id number] #### [facility] [address] [place] [address] UA RBC 0-3 Normal 0-3 [facility] Comment on above: Performed By: #### 4 [id number] #### [facility] [address] [place] [address] UA Spec Grav 1.006 Invalid Interpretation Code 1.005-1.030 [facility] Comment on above: Performed By: #### 4 [id number] #### [facility] [address] [place] [address] UA Squam Epithelial 3-4 Invalid Interpretation Code [facility] Comment on above: Performed By: #### 4 [id number] #### [facility] [address] [place] [address] UA Transitional Epithelial 0-2 Normal 0-2 [facility] Comment on above: Performed By: #### 4 [id number] #### [facility] [address] [place] [address] UA Urobilinogen Negative Normal Negative [facility] Comment on above: Performed By: #### 4 [id number] #### [facility] [address] [place] [address] UA WBC 0-5 Normal 0-5 [facility] Comment on above: Performed By: #### 4 [id number] #### [facility] [address] [place] [address] Urobilinogen (U) [Mass/Vol] Negative Normal Negative [facility] Comment on above: Performed By: #### 4 [id number] #### [facility] [address] [place] [address] UA Spec Desc Clean Catch Normal [facility] Comment on above: Performed By: #### 4 [id number] #### [facility] [address] [place] [address] URINALYSISOrdered By: SYSTEM SYSTEM on 02-17-2025 Bacteria Auto Ql (U) Trace /HPF Normal Trace/HPF [facility] UA Auto SS Bilirubin Ql (U) Negative Normal Negativemg/ d L [facility] UA Auto SS Clarity (U) Clear (02/17/25 7:24 PM) Normal Clear [facility] UA Auto SS Color (U) Light-Yellow 1 (02/17/25 7:24 PM) Normal Yellow [facility] UA Auto SS Comment on above: Interpretive Data: M icroscopic readings are only performed on those samples that meet specific criteria set forth by [facility]. Epithelial cells.squamous Auto (Urine sed) [#/Area] 3-4 graded/HPF Invalid Interpretation Code FT UA Auto SS Glucose Ql (U) Negative Normal Negativemg/d L [facility] UA Auto SS Hemoglobin Auto test strip (U) [Mass/Vol] Negative Normal Negativemg/d L [facility] UA Auto SS Ketones Auto test strip Ql (U) Negative Normal Negativemg/d L [facility] UA Auto SS Leukocyte esterase Auto test strip Ql (U) 25 Keven/uL Keven/uL Normal NegativeLeu/ uL FT UA Auto SS Mucus Auto Ql (U) Negative Normal Negativegr ad ed/LPF [facility] UA Auto SS Nitrite Auto test strip Ql (U) Negative Normal Negativemg/d L [facility] UA Auto SS pH (U) 7.5 *NA* (02/17/25 7:24 PM) Invalid Interpretation Code 5.0 - 9.0 [facility] UA Auto SS Protein Ql (U) Negative Normal Negativemg/d L [facility] UA Auto SS RBC Ql (U) 0-3 graded/HPF Normal 0-3graded/HP F [facility] UA Auto SS Specific gravity (U) [Rel density] 1.006 *NA* (02/17/25 7:24 PM) Invalid Interpretation Code 1.005 - 1.030 [facility] UA Auto SS Transitional cells Computer assisted (U) [#/Area] 0-2 graded/HPF Normal 0-2graded/HP F [facility] UA Auto SS Urobilinogen (U) [Mass/Vol] Negative Normal Negativemg/d L [facility] UA Auto SS WBC Auto (Urine sed) [#/Area] 0-5 graded/HPF Normal 0-5graded/HP F [facility] UA Auto SS URINALYSISOrdered By: Ben Garber on 02-17-2025 UA Spec Desc Clean Catch (02/17/25 7:24 PM) Normal [facility] UA Auto SS eGFRon 02-17-2025 eGFR 115 mL/min/1.73 m2 Normal >=59 [facility] Comment on above: Performed By: #### 1 [id number] #### [facility] [address] [place] [address] Heart and Vascular Office/Cl inic Noteon 02-16-2025 Heart and Vascular Office/Clinic Note Heart and Vascular Office/Clinic Note Chief Complaint New Patient- Palpitations History of Present Illness Patient is a 34 year old female here with concerns of heart palpitations. Patient states she feels skipping and racing, she states she feels the pain right in the center of her chest. She does not feel the skip beats. She states when she has episodes her heart rate drops to sometimes less than 50 bpm. She states she currently is struggling to catch her breath. Patient states heart disease runs in her family. Patient had gastric bypass in 2020. Review of Systems PHQ Score Initial Depression Screen Score: 0 SCORE Constitutional: no fever, no sweats, no weakness Skin: no rash, no lesions, nobruising/petechiae ENMT: no sore throat, no congestion, no hoarseness Respiratory: no shortness of breath, no cough, no orthopnea, no wheezing Cardiovascular: no chest pain, no palpitations, no edema Gastrointestinal: no nausea, no vomiting, no diarrhea, no GI bleeding Genitourinary: no anuria/oliguria no hematuria Musculoskeletal: no back pain, no trauma Neurologic: no headache, no dizziness, no numbness, no weakness Psychiatric: no sleeping problems, no irritability, no anxiety/depression. Heme/Lymph: no bleeding tendency, no bruising tendency Allergy/Immunologic: no recurrent infections, no impaired immunity Additional ROS info: Except as noted in the above Review of Systems and in the History of Present Illness all other systems have been reviewed and are negative or noncontributor Physical Exam Vitals & Measurements HR: 85(Peripheral) RR: 18 BP: 138/90 SpO2: 97% HT: 67 in HT: 170 cm WT: 199.298 lb WT: 90.4 kg BMI: 31.28 General: alert, no acute distress Neck: Supple, noJVD nocarotid bruit Cardiovascular: regular rate and rhythm, no murmur normal peripheral perfusion Respiratory: Lungs CTAB, respirations non labored Extremities: no edema left lower extremity. no edema right lower extremity Neurological: oriented x 4, LOC appropriate for age, speech normal Skin: Warm, dry, intact- no rash or concerning lesions Cardiac Diagnostics (02/09/2025 11:26 EDT Echo Transthoracic Complete) The left ventricle is normal in size. There is normal left ventricular wall thickness. Ejection Fraction = 60-65%. The left ventricular ejection fraction is normal. [1] (02/03/2025 holter monitor) 1. Predominant rhythm was sinus rhythm/sinus tachycardia. 2. Minimum heart rate 46 beats per minute, average heart rate 88 beats per minute, maximum heart rate 142 beats per minute. 3. Two patient events with symptoms of not specified and baseline. 4. No secondary arrhythmia detected. 5. Total supraventricular ectopic beats 6 which represent less than 0.01%. 6. Total ventricular ectopics 1 beat which represents less than 0.01%. 7. LA interval 0.15 second, QRS 0.10 second, QT 0.40 second at heart rate of 64 beats per minute. [2] Assessment/Plan 1. Palpitation (R00.2: Palpitations) Patient has strong family history of cardiac disease including mother, father, maternal grandmother and siblings. Patient will do a 14 day event monitor, a pharmacologic nuclear scan and chest x-ray. She will check blood pressure at home. Note provided for work for patient to wear her watch while she is there for monitoring. 2. Tachycardia (R00.0: Tachycardia, unspecified) Patient is aware of heart irregularities where the heart skips and slows. She does have a smart to monitor heart rate. 3. Chest pain (R07.9: Chest pain, unspecified) Not related to exertion and is usually present in the sternal area. No syncope associated with this. Patient will return to clinic in 1 month for regular follow up appointment. Patient will call office for sooner appointment for acute concerns. Arielle Ware personally transcribed this note for on 02/16/2025 at 1341. Follow-up No qualifying data available Problem List/Past Medical History Ongoing Alcohol abuse, uncomplicated Bipolar disorder BMI 31.0-31.9,adult Borderline personality disorder Chronic pain syndrome History of bypass of stomach Hypertension Iron deficiency anemia Left breast mass Muscle weakness-general Obesity (BMI 30-39.9) Overweight (BMI 25.0-29.9) Pancreatic mass Smoker Vitamin D deficiency Historical Alcohol abuse Procedure/Surgical History Injection of facet joint using fluoroscopic guidance (01/24/2025), Injection of nerve root of lumbar spine using fluoroscopic guidance (11/28/2024), Biopsy, breast, with placement of breast localization device(s) (eg, clip, metallic pellet), when performed, and imaging of the biopsy specimen, when performed, percutaneous; first lesion, including ultrasound guidance (07/11/2024), Hysterectomy (12/05/2022), Endoscopic plantar fasciotomy (02/16/2020), Endoscopic plantar fasciotomy (06/02/2019), LEFT ELBOW ULNAR NERVE DECOMPRESSION (02/11/2019), x3, Foot, Foot, Gastric (more content not included)... Normal [facility] Comment on above: Result Comment: Elec tronically Signed By: Jak Peace MD W\.br\Date and Time Signed: 02/16/25 14:43 EDT\.br\Electronically Co-Signed By: Roxana Shipman\.br\Date and Time Co-Signed: 02/16/25 14:37 EDT XR Chest 2 Viewson XR Chest 2 Views Exam Date/Time: 02/16/2025 14:18 EDT Reason for Exam: R00.2, R07.9, R00.0;Chest pain Report IMPRESSION: NO RADIOGRAPHIC EVIDENCE OF ACTIVE DISEASE IN THE CHEST. CLINICAL INFORMATION: Chest pain, R00.2, R07.9, R00.0 COMPARISON: 01/15/2023 FINDINGS: Two views of the chest were obtained. Heart and mediastinum appear normal. The lungs appear clear. Visualized bony thorax and remainder of the chest appears unremarkable. Ordering Provider: Jak Peace FINAL REPORT Dictated: 02/16/2025 2:29 pm Julio Snyder MD Signed (Electronic Signature): 02/16/2025 2:29 pm Signed by: Julio Snyder MD Transcribed by: MARCO Technologist: MELYSSA Walters [facility] Holter Monitoron 02-13-2025 Holter Monitor Holter Monitor HOLTER MONITOR DATES OF STUDY: 02/03/2025 to 02/04/2025 TEST DURATION: One day. INDICATION: Palpitations. FINDINGS: 1. Predominant rhythm was sinus rhythm/sinus tachycardia. 2. Minimum heart rate 46 beats per minute, average heart rate 88 beats per minute, maximum heart rate 142 beats per minute. 3. Two patient events with symptoms of not specified and baseline. 4. No secondary arrhythmia detected. 5. Total supraventricular ectopic beats 6 which represent less than 0.01%. 6. Total ventricular ectopics 1 beat which represents less than 0.01%. 7. LA interval 0.15 second, QRS 0.10 second, QT 0.40 second at heart rate of 64 beats per minute. READ BY: terrell Hernandez Dictated: 02/10/2025 [id number] Transcribed: 02/13/2025 [facility] Comment on above: Result Comment: Elec tronically Signed By: Jeremiah BHAKTA, Fernandez\.br\Date and Time Signed: 02/13/25 18:05 EDT Main OR Intraoperative Recor don 01-24-2025 Main OR Intraoperative Record Main OR Intraoperative Record IntraOp Document Type [facility] Summary Primary Physician: Babar Mayers DO Finalized Date/Time: 01/24/25 09:58:05 Pt. Name: SHAZIA CHOU/Sex: 1990 Female Med Rec #: [id number] Physician: Babar Mayers DO Financial #: [id number] Pt. Type: P Room/Bed: / Admit/Disch: 01/24/25 08:25:39 - Institution: Case Times FTPM Entry 1 Patient Times In Room 01/24/25 09:48:00 Out Room 01/24/25 09:58:00 Procedure Times Start 01/24/25 09:51:00 Stop 01/24/25 09:57:00 Anesthesia Times Last Modified By: Nolvia Rodas RN 01/24/25 09:57:47 Case Attendance FTPM Entry 1 Entry 2 Entry 3 Case Attendee Babar Mayers DO, RN, Nolvia Rand RN, Corby Blue Role Performed Surgeon - Primary Lottery Clerk - Primary Scrub - Primary Time In 01/24/25 09:48:00 01/24/25 09:48:00 01/24/25 09:48:00 Time Out 01/24/25 09:58:00 01/24/25 09:58:00 01/24/25 09:58:00 Procedure MEDIAL BRANCH MEDIAL BRANCH MEDIAL BRANCH BLOCK(Bilateral) BLOCK(Bilateral) BLOCK(Bilateral) Comments Last Modified By: Clark ROLLE, Nolvia Rodas RN, Nolvia Gonzalez RN 01/24/25 09:57:49 01/24/25 09:57:49 01/24/25 09:57:49 Entry 4 Case Attendee Jennie Hurtado Role Performed Conservation Enforcement Officer Time In 01/24/25 09:48:00 Time Out 01/24/25 09:58:00 Procedure MEDIAL BRANCH BLOCK(Bilateral) Comments Last Modified By: Nlovia Rodas RN 01/24/25 09:57:49 Perioperative Protocols FTPM Pre-Care Text: Implements protective measures prior to operative or invasive procedure, confirms identity before the operative or invasive procedure, verifies operative procedure, surgical site, and laterality Entry 1 Procedure(s) MEDIAL BRANCH Patient Identity Birthday, ID Band BLOCK(Bilateral) Verified (select at Check, Patient least 2): Participation Consents / H and P H&P, Surgery/Procedure Operative Site Present Verified Consent Marking Verified Surgical Site Yes Laterality Verified Yes Verified Procedure Verified Yes Correct Patient Yes Position Verified Availability Equipment, Medication, Prep Dry Yes Verified (If X-ray Applicable) PreOp Antibiotic No Time Out Nolvia Rodas RN, Harvey RN, Talib Lynch DO, Bradford A., Jennie Hurtado Time Out Complete 01/24/25 09:51:00 Outcomes Met? Yes Last Modified By: Nolvia Rodas RN 01/24/25 09:51:13 Post-Care Text: The patient is free from signs and symptoms of injury caused by extraneous objects Allergy Information FTPM Pre-Care Text: Verifies allergies Entry 1 Allergies Reviewed? Yes Allergies Reviewed Self/Patient With Outcomes Met? Yes Last Modified By: Nolvia Rodas RN 01/24/25 09:51:20 Post-Care Text: The patient received appropriate medication(s) safely administered during the perioperative period Surgical Procedures FTPM Entry 1 Procedure Description Procedure MEDIAL BRANCH BLOCK Modifiers Bilateral Surgeon Description Bilateral MBB covering the L4-S1 facet jts. Primary Procedure Yes Primary Surgeon Babar Mayers DO Start 01/24/25 09:51:00 Stop 01/24/25 09:57:00 Anesthesia Type None Surgical Service Pain Management Wound Class 1 - Clean Last Modified By: Nolvia Rodas RN 01/24/25 09:57:51 General Case Data FTPM Pre-Care Text: Classifies surgical wound, implements aseptic technique, initiates traffic control Entry 1 Case Information OR Pain Proc Room Case Level Level 2 Wound Class 1 - Clean Specialty Pain Management Preop Diagnosis M47.816 Postop Same As Preop Yes Postop Diagnosis M47.816 Outcomes Met? Yes Last Modified By: Nolvia Rodas RN 01/24/25 09:51:27 Post-Care Text: The patient is free from signs and symptoms of infection Skin Assessment (Pre Procedure) FTPM Pre-Care Text: Implements protective measures to prevent skin/ tissue injury due to thermal or mechanical sources Evaluates for signs and symptoms of physical injury to skin and tissue Entry 1 Skin Integrity Intact, [place], Warm, & Skin Abnormality No Dry Outcomes Met? Yes Last Modified By: Nolvia Rodas RN 01/24/25 09:52:01 Post-Care Text: The patient is free from signs and symptoms of injury caused by extraneous objects Patient Positioning FTPM Pre-Care Text: Identifies physical alterations that require additional precautions for procedure-specific positioning, verifies presence of prosthetics or corrective devices, positions the patient, evaluates the patient for signs and symptoms of injury as a result of positioning Entry 1 Procedure MEDIAL BRANCH Body Position Prone BLOCK(Bilateral) Feet Uncrossed? Yes Left Arm Position Resting at Side Right Arm Position Resting at Side Left Leg Position Extended Right Leg Position Extended Positioning Device Pillow Under Head Large, Safety Strap, Pillow Large Under Knees Press Points Checked Yes By Clark ROLLE, Vu (more content not included)... Normal [facility] Main OR Preoperative Recordo n 01-24-2025 Main OR Preoperative Record Main OR Preoperative Record Holding Area Document Type FTPM Summary Primary Physician: Babar Mayers DO Finalized Date/Time: 01/24/25 08:43:59 Pt. Name: CASSIASHAZIA MALDONADO/Sex: 1990 Female Med Rec #: [id number] Physician: Babar Mayers DO Financial #: [id number] Pt. Type: P Room/Bed: / Admit/Disch: 01/24/25 08:25:39 - Institution: Case Times Holding FTPM Pre-Care Text: Verifies consent for planned procedure, identifies individual values and wishes concerning care, includes family members in perioperative teaching Secures patient's records' belongings, and valuables, maintains patient's dignity and privacy, and maintains patient confidentiality Entry 1 In Holding 01/24/25 08:38:00 Outcomes Met? Yes Last Modified By: Gabrielle Sultana RN 01/24/25 08:38:59 Post-Care Text: The patient participates in decisions affecting his or her perioperative plan of care The patient's right to privacy is maintained Surgery Checklist FTPM Entry 1 Patient Birthday, ID Band Procedure History and Physical, Identification: Check, Patient Verification: Surgical Consent, With Participation Patient NPO after Midnight: No Date/Time: 01/24/25 08:39:00 Results Reviewed 0800 coffee and Gatorade Personal Items: Dentures, Jewelry Comments: Personal Items Pt. wearing Complaints of Pain: Yes Comment: upper/lower dentures, four rings, 10 earrings and two necklaces. Pain Comment: 7/10 lower back pain Operative Site Yes Marking: Marked By: Dr. Mayers Location: bilateral L4-S1 Availability Equipment, X-Ray Verified: Does Patient Smoke Yes If Yes to Smoking. 1 PPD cigarettes Cigars or Cigarettes. How much per day? Patient states Yes Comment - Adult friend-[place] postop adult Supervision supervision available Case Cancelled in No Holding Area see comments below for reason Last Modified By: Gabrielle Sultana RN 01/24/25 08:41:00 Finalized By: Gabrielle Sultana RN Document Signatures Signed By: Gabrielle Sultana RN 01/24/25 08:43 Normal [facility] MR head/brain wo/w conon MR head/brain wo/w con [facility] [place] [address] [place] [address] MRI Report Signed Patient: Shazia Chou MR#: [id number] : 1990 Acct:[id number] Age/Sex: 33 / F ADM Date: 12/16/24 Loc: MR Room: Type: [facility] Attending Dr: Corby Larsen DO Copies to: Corby Larsen DO Ordering Provider: Corby Larsen DO Date of Service: 12/16/24 MR/MR head/brain wo/w con: R27.0 MRI BRAIN WITHOUT AND WITH INTRAVENOUS CONTRAST CLINICAL DATA: Intracranial hypertension, headache COMPARISON: MRI brain 08/02/2020 Multiecho, multiplanar imaging of the brain was performed before and after intravenous administration of 17 mL of ProHance. FINDINGS: No restricted diffusion. Ventricles and sulci normal size and configuration for the patient's age. No shift midline structures. Basal cisterns are patent. No significant T2 prolongation within the supratentorial or infratentorial brain. Similar appearance of the partially empty sella turcica. Stable symmetric prominence of Meckel's caves. Similar prominence of the optic nerve sheath complexes with slight tortuosity. No evidence of abnormal post contrast- enhancement. MR/MR head/brain wo/w con IMPRESSION: Stable findings of intracranial hypertension. No acute intracranial process by MRI. Impression dictated by: Denny Escalante M.D.12/16/2024 2:50 PM Dictation Location: [place] [address] Transcribed By: MARKY 12/16/241449 Dictated By: Denny Escalante MD 12/16/241403 Signed By: 12/16/241449 Normal [facility] Magnetic resonance imaging r eportOrdered By: Denny Escalante on 12-16-2024 Study report [place] [facility] [place] [address] [place], [place] [id number] MRI Report Signed Patient: Shazia Chou MR#: [id number] : 1990 Acct:[id number] Age/Sex: 33 / F ADM Date: 5 Loc: MR Room: Type: [facility] Attending Dr: Corby Larsen DO Copies to: Corby Larsen DO~ Ordering Provider: Corby aLrsen DO Date of Service: 12/16/24 MR/MR head/brain wo/w con: R27.0 MRI BRAIN WITHOUT AND WITH INTRAVENOUS CONTRAST CLINICAL DATA: Intracranial hypertension, headache COMPARISON: MRI brain 08/02/2020 Multiecho, multiplanar imaging of the brain was performed before and after intravenous administration of 17 mL of ProHance. FINDINGS: No restricted diffusion. Ventricles and sulci normal size and configuration for the patient's age. No shift midline structures. Basal cisterns are patent. No significant T2 prolongation within the supratentorial or infratentorial brain. Similar appearance of the partially empty sella turcica. Stable symmetric prominence of Meckel's caves. Similar prominence of the optic nerve sheath complexes with slight tortuosity. No evidence of abnormal post contrast-enhancement. MR/MR head/brain wo/w con IMPRESSION: Stable findings of intracranial hypertension. No acute intracranial process by MRI. Impression dictated by: Denny Escalante M.D.12/16/2024 2:50 PM Dictation Location: [place] [address] Transcribed By: MARKY 12/16/241449 Dictated By: Denny Escalante MD 12/16/241403 Signed By: 12/16/241449 [facility] Work Phone: XR Spine Lumbar Complete Inc luding Bendion 12-14-2024 XR Spine Lumbar Complete Including Bendi Exam Date/Time: 12/14/2024 11:38 EDT Reason for Exam: M43.16 Report IMPRESSION: Grade 2 L5 spondylolisthesis with L5 pars interarticularis defect. CLINICAL INFORMATION: M43.16 COMPARISON: NONE. COMMENT: 8 views. Lumbar vertebral bodies are normal in height. 1.1 cm anterolisthesis L5 on S1 visualized on flexion, extension, and neutral position. Diffuse disc space narrowing L5-S1. Pars interarticularis defect L5. No bone lesion. Ordering Provider: David Zazueta FINAL REPORT Dictated: 12/14/2024 1:53 pm Julio Snyder MD Signed (Electronic Signature): 12/14/2024 1:53 pm Signed by: Julio Snyder MD Transcribed by: MARCO Technologist: CHAN [facility] 24 hour urine albumin/total protein ratio by electrophoresisOrdered By: Jacob Baker on 12-12-2024 Albumin Elph (24H U) [Mass fraction] Albumin/Protein.total in 24 hour Urine by Electrophoresis . [facility] 24 hour urine gamma globulin /total protein ratio by electrophoresisOrdered By: Jacob Baker on 12-12-2024 Gamma globulin Elph (24H U) [Mass fraction] Gamma globulin/Protein.total in 24 hour Urine by Electrophoresis . [facility] 24 hour urine protein monocl onal/total protein by electrophoresisOrdered By: Jacob Baker on 12-12-2024 Protein.monoclonal Elph (24H U) [Mass fraction] Protein.monoclonal/Prot ein.total in 24 hour Urine by Electrophoresis Not Observed [facility] CYNDI Antinuclear Antibodieson 12-12-2024 Antinuclear Abs, IFA Negative Normal . [facility] Comment on above: Result Comment: Nega tive <1:80 Borderline 1:80 Positive >1:80 ICAP nomenclature: AC-0 For more information about Hep-2 cell patterns use ANApatterns.org, the official website for the International Consensus on Antinuclear Antibody (CYNDI) Patterns (ICAP). Performed at: [facility] [address] [id number] Dynamic Balancer: Santy Storey PhD, Phone: [phone] PERFORMED BY: [place] [address] [place] [address] PATHOLOGIST [employer] TESTER CARLOS KNAPP M.D. Performed By: #### A NA ####[facility] , Result Comment: Nega tive <1:80 Borderline 1:80 Positive >1:80 ICAP nomenclature: AC-0 For more information about Hep-2 cell patterns use ANApatterns.org, the official website for the International Consensus on Antinuclear Antibody (CYNDI) Patterns (ICAP). Performed at: [facility] [address] [id number] Dynamic Balancer: Santy Storey PhD, Phone: [phone] Performed By: #### R A, CYNDI, JO1, SJOGRENS, ANTIR, HELM, [id number], HISAB, C3, C4, CARDIO GMA, CENTROME, CCP, B2 GLYPROT, ADNA, CHROMATIN, CH50 ####[facility] , Alanine aminotransferase [En zymatic activity/volume] in Serum or PlasmaOrdered By: Jacob Baker on 12-12-2024 ALT [Catalytic activity/Vol] Alanine aminotransferase [Enzymatic activity/volume] in Serum or Plasma [facility] Albumin [Mass/volume] in Ser um or Plasma by Bromocresol green (BCG) dye binding methoOrdered By: Jacob Baker on 12-12-2024 Albumin BCG dye [Mass/Vol] Albumin [Mass/volume] in Serum or Plasma by Bromocresol green (BCG) dye binding metho 3.5-5.7 [facility] Alkaline phosphatase [Enzyma tic activity/volume] in Serum or PlasmaOrdered By: Jacob Baker on 12-12-2024 ALP [Catalytic activity/Vol] Alkaline phosphatase [Enzymatic activity/volume] in Serum or Plasma 34-104 [facility] Anti-Centromere B Antibodies on 12-12-2024 Anti-Centromere B Antibodies <0.2 Normal 0.0-0.9 [facility] Comment on above: Result Comment: Perf ormed at: [facility] [address] [id number] Dynamic Balancer: Santy Storey PhD, Phone: [phone] Performed By: #### R A, CYNDI, JO1, SJOGRENS, ANTIR, HELM, [id number], HISAB, C3, C4, CARDIO GMA, CENTROME, CCP, B2 GLYPROT, ADNA, CHROMATIN, CH50 ####[facility] , Anti-RNPon 12-12-2024 Anti-IOS PROGRAMMER <0.2 Normal 0.0-0.9 [facility] Comment on above: Performed By: #### R A, CYNDI, JO1, SJOGRENS, ANTIR, HELM, [id number], HISAB, C3, C4, CARDIO GMA, CENTROME, CCP, B2 GLYPROT, ADNA, CHROMATIN, CH50 ####[facility] , Anti-Helm Antibodieson 11-14 Anti-Helm Antibodies <0.2 Normal 0.0-0.9 [facility] Comment on above: Performed By: #### R A, CYNDI, JO1, SJOGRENS, ANTIR, HELM, [id number], HISAB, C3, C4, CARDIO GMA, CENTROME, CCP, B2 GLYPROT, ADNA, CHROMATIN, CH50 ####[facility] , Anti-dsDNA(DBL)Abon 12-13-19 Anti-dsDNA(DBL)Ab 1 [IU]/mL Normal 0-9 [facility] Comment on above: Result Comment: Nega tive <5 Equivocal 5 - 9 Positive >9 Performed By: #### M YOG, SYMONE SERUM, SPE, RPR W RFX, SYMONE,URINE, UPE RAND, ALDOLASE #### [facility] , #### CK, CMP, CRP, T4F, TSH3, PP, CBC, ESR, ADDONUAPLUS #### [facility] [address] [place] [address] Anticardiolipin IgG/M/A, Qno n 12-12-2024 Anticardiolipin Ab, IgA,Qn <9 Normal 0-11 [facility] Comment on above: Result Comment: Nega tive: <12 Indeterminate: 12 - 20 Low-Med Positive: >20 - 80 High Positive: >80 Performed By: #### R A, CYNDI, JO1, SJOGRENS, ANTIR, HELM, [id number], HISAB, C3, C4, CARDIO GMA, CENTROME, CCP, B2 GLYPROT, ADNA, CHROMATIN, CH50 ####[facility] , Anticardiolipin Ab, IgG,Qn <9 Normal 0-14 [facility] Comment on above: Result Comment: Nega tive: <15 Indeterminate: 15 - 20 Low-Med Positive: >20 - 80 High Positive: >80 Performed By: #### R A, CYNID, JO1, SJOGRENS, ANTIR, HELM, [id number], HISAB, C3, C4, CARDIO GMA, CENTROME, CCP, B2 GLYPROT, ADNA, CHROMATIN, CH50 ####[facility] , Anticardiolipin Ab, IgM,Qn <9 Normal 0-12 [facility] Comment on above: Result Comment: Nega tive: <13 Indeterminate: 13 - 20 Low-Med Positive: >20 - 80 High Positive: >80 Performed By: #### R A, CYNDI, JO1, SJOGRENS, ANTIR, HELM, [id number], HISAB, C3, C4, CARDIO GMA, CENTROME, CCP, B2 GLYPROT, ADNA, CHROMATIN, CH50 ####[facility] , Appearance of UrineOrdered B y: Jacob Baker on 12-12-2024 Appearance (U) Urine appearance [facility] Aspartate aminotransferase [ Enzymatic activity/volume] in Serum or PlasmaOrdered By: Jacob Baker on 12-12-2024 AST [Catalytic activity/Vol] Aspartate aminotransferase [Enzymatic activity/volume] in Serum or Plasma 13-39 [facility] Bacteria [Presence] in Urine by AutomatedOrdered By: Jacob Baker on 12-12-2024 Bacteria Auto Ql (U) Bacteria [Presence] in Urine by Automated None Seen [facility] Basophils Auto (Bld) [#/Vol] Ordered By: Jacob Baker on 12-12-2024 Basophils (Bld) [#/Vol] Automated basophil count 0.0-0.2 [facility] Basophils/100 WBC Auto (Bld) Ordered By: Jacob Baker on 12-12-2024 Basophils/100 WBC (Bld) Automated basophil % . [facility] Beta 2 Glycoprotein I Ab IgG /Mon 12-12-2024 Beta 2 Glycoprotein I Ab, IgG <9 Normal 0-20 [facility] Comment on above: Result Comment: Resu lt Units: GPI IgG units The reference interval reflects a 3SD or 99th percentile interval, which is thought to represent a potentially clinically significant result in accordance with the International Consensus Statement on the classification criteria for definitive antiphospholipid syndrome (APS). J Thromb Haem 2006;4:295-306. Performed By: #### M YOG, SYMONE SERUM, SPE, RPR W RFX, SYMONE,URINE, UPE RAND, ALDOLASE #### [facility] , #### CK, CMP, CRP, T4F, TSH3, PP, CBC, ESR, ADDONUAPLUS #### [facility] [address] [place] [address] [place] Beta 2 Glycoprotein I Ab, IgM <9 Normal 0-32 [facility] Comment on above: Result Comment: Resu lt Units: GPI IgM units The reference interval reflects a 3SD or 99th percentile interval, which is thought to represent a potentially clinically significant result in accordance with the International Consensus Statement on the classification criteria for definitive antiphospholipid syndrome (APS). J Thromb Haem 2006;4:295-306. Performed at: [facility] [address] [id number] Dynamic Balancer: Santy Storey PhD, Phone: [phone] Performed By: #### M YOG, SYMONE SERUM, SPE, RPR W RFX, SYMONE,URINE, UPE RAND, ALDOLASE #### [facility] , #### CK, CMP, CRP, T4F, TSH3, PP, CBC, ESR, ADDONUAPLUS #### [facility] [address] [place] [id number] [place] Beta 2 glycoprotein 1 IgG Ab [Units/volume] in SerumOrdered By: Jacob Baker on 12-12-2024 Beta 2 glycoprotein 1 IgG Qn (S) Beta 2 glycoprotein 1 IgG Ab [Units/volume] in Serum 0-20 [facility] Comment on above: Result Units: GPI Ig G unitsThe reference interval reflects a 3SD or 99th percentileinterval, which is thought to represent a potentiallyclinically significant result in accordance with theBanner [facility] Webb Medical Centernational Consensus Statement on the classificationcriteria for definitive antiphospholipid syndrome (APS). JThromb Haem 2006;4:295-306. Bilirubin Test strip Ql (U)O rdered By: Jacob Baker on 12-12-2024 Bilirubin Ql (U) Bilirubin.total [Presence] in Urine by Test strip Negative [facility] Bilirubin.total [Mass/volume ] in Serum or PlasmaOrdered By: Jacob Baker on 12-12-2024 Bilirubin [Mass/Vol] Bilirubin.total [Mass/volume] in Serum or Plasma 0.3-1.0 [facility] C reactive protein [Mass/vol ume] in Serum or PlasmaOrdered By: Jacob Baker on 12-12-2024 CRP [Mass/Vol] C reactive protein [Mass/volume] in Serum or Plasma 0.0-0.5 [facility] C-Reactive Proteinon 025 CRP [Mass/Vol] mg/L Normal 0.0-0.5 [facility] Comment on above: Performed By: #### M YOG, SYMONE SERUM, SPE, RPR W RFX, SYMONE,URINE, UPE RAND, ALDOLASE #### [facility] , #### CK, CMP, CRP, T4F, TSH3, PP, CBC, ESR, ADDONUAPLUS #### [facility] [address] [place] [address] Calcium [Mass/volume] in Ser um or PlasmaOrdered By: Jacob Baker on 12-12-2024 Calcium [Mass/Vol] Calcium [Mass/volume ] in Serum or Plasma 8.6-10.3 [facility] Carbon dioxide, total [Moles /volume] in Serum or PlasmaOrdered By: Jacbo Baker on 12-12-2024 CO2 [Moles/Vol] Carbon dioxide, tota l [Moles/volume] in Serum or Plasma 21.0-31.0 [facility] Chloride [Moles/volume] in S tushar or PlasmaOrdered By: Jacob Baker on 12-12-2024 Chloride [Moles/Vol] Chloride [Moles/vol ume] in Serum or Plasma 98-107 [facility] Chromatin Antibodyon 025 Chromatin Antibody <0.2 Normal 0.0-0.9 [facility] Comment on above: Result Comment: PERF ORMED BY: [place] [id number] PATHOLOGIST [employer] TESTER CARLOS KNAPP M.D. Performed By: #### M YOG, SYMONE SERUM, SPE, RPR W RFX, SYMONE,URINE, UPE RAND, ALDOLASE #### [facility] , #### CK, CMP, CRP, T4F, TSH3, PP, CBC, ESR, ADDONUAPLUS #### [facility] [address] [place], [place] [id number] [facility] Coagulation Profileon 2024 aPTT Coag (Bld) [Time] 29.5 s Normal 25.1-36.5 [facility] Comment on above: Result Comment: A he matocrit value greater than 55% may lead to inaccurate results in coagulation testing. Patients having hematocrit values >55% require a special collection tube for coagulation studies. Please contact the laboratory at [phone] for redraw instructions. PERFORMED BY: [address] [place] [id number] PATHOLOGIST [employer] TESTER CARLOS KNAPP M.D. Performed By: #### M YOG, SYMONE SERUM, SPE, RPR W RFX, SYMONE,URINE, UPE RAND, ALDOLASE #### [facility] , #### CK, CMP, CRP, T4F, TSH3, PP, CBC, ESR, ADDONUAPLUS #### [facility] [address] [place] [id number] [facility] INR Coag (PPP) [Relative time] 0.8 {INR} Normal [facility] Comment on above: Result Comment: [...] valves: 3 - 4.5 Performed By: #### M YOG, SYMONE SERUM, SPE, RPR W RFX, SYMONE,URINE, UPE RAND, ALDOLASE #### [facility] , #### CK, CMP, CRP, T4F, TSH3, PP, CBC, ESR, ADDONUAPLUS #### [facility] [address] PT Coag (PPP) [Time] 9.6 s Normal 9.0-12.9 [facility] Comment on above: Result Comment: A he matocrit value greater than 55% may lead to inaccurate results in coagulation testing. Patients having hematocrit values >55% require a special collection tube for coagulation studies. Please contact the laboratory at [phone] for redraw instructions. Performed By: #### M YOG, SYMONE SERUM, SPE, RPR W RFX, SYMONE,URINE, UPE RAND, ALDOLASE #### [facility] , #### CK, CMP, CRP, T4F, TSH3, PP, CBC, ESR, ADDONUAPLUS #### [facility] [address] [place] [id number] [facility] Color Auto (U)Ordered By: Stephany Baker on 12-12-2024 Color (U) Color of Urine by Auto Yellow [facility] Complement C3on 12-12-2024 Complement C3 133 mg/dL Normal 82-167 [facility] Comment on above: Performed By: #### R A, CYNDI, JO1, SJOGRENS, ANTIR, HELM, [id number], HISAB, C3, C4, CARDIO GMA, CENTROME, CCP, B2 GLYPROT, ADNA, CHROMATIN, CH50 ####[facility] , Complement C4on 12-12-2024 Complement C4 23 mg/dL Normal 12-38 [facility] Comment on above: Performed By: #### R A, CYNDI, JO1, SJOGRENS, ANTIR, HELM, [id number], HISAB, C3, C4, CARDIO GMA, CENTROME, CCP, B2 GLYPROT, ADNA, CHROMATIN, CH50 ####[facility] , Complement Total (CH50)on Complement Total (CH50) >60 Normal >41 [facility] Comment on above: Result Comment: Age Male Female 1 - 30 days Not Estab. Not Estab. 31 days - 6 months >32 >20 7 months - 17 years >39 >39 >17 years >41 >41 NOTE: The adult ( >17 years ) reference interval range is used to flag abnormals on this report. If the patient is 17 years old or younger, use the table above to determine out of range values. Performed at: - [facility] [id number] Dynamic Balancer: Santy Storey PhD, Phone: [phone] PERFORMED BY: [facility] [address] [place] [address] PATHOLOGIST [employer] TESTER CARLOS KNAPP M.D. Performed By: #### R A, CYNDI, JO1, SJOGRENS, ANTIR, HELM, [id number], HISAB, C3, C4, CARDIO GMA, CENTROME, CCP, B2 GLYPROT, ADNA, CHROMATIN, CH50 ####[facility] , Complete Blood Count Auto Di ffon 12-12-2024 Basophils (Bld) [#/Vol] 0.1 10*3/uL Normal 0.0-0.2 [facility] Comment on above: Performed By: #### M YOG, SYMONE SERUM, SPE, RPR W RFX, SYMONE,URINE, UPE RAND, ALDOLASE ####[facility] ,#### CK, CMP, CRP, T4F, TSH3, PP, CBC, ESR, ADDONUAPLUS ####[facility] [address] Basophils/100 WBC (Bld) 0.8 % Normal . [facility] Comment on above: Performed By: #### M YOG, SYMONE SERUM, SPE, RPR W RFX, SYMONE,URINE, UPE RAND, ALDOLASE ####[facility] ,#### CK, CMP, CRP, T4F, TSH3, PP, CBC, ESR, ADDONUAPLUS ####[address] Eosinophils (Bld) [#/Vol] 0.2 10*3/uL Normal 0.0-0.45 [facility] Comment on above: Performed By: #### M YOG, SYMONE SERUM, SPE, RPR W RFX, SYMONE,URINE, UPE RAND, ALDOLASE ####[facility] ,#### CK, CMP, CRP, T4F, TSH3, PP, CBC, ESR, ADDONUAPLUS ####[address] Eosinophils/100 WBC (Bld) 2.0 % Normal . [facility] Comment on above: Performed By: #### M YOG, SYMONE SERUM, SPE, RPR W RFX, SYMONE,URINE, UPE RAND, ALDOLASE ####[facility] ,#### CK, CMP, CRP, T4F, TSH3, PP, CBC, ESR, ADDONUAPLUS ####[address] Erythrocyte distribution width (RBC) [Ratio] 15.3 % Normal 11.9-15.3 [facility] Comment on above: Performed By: #### M YOG, SYMONE SERUM, SPE, RPR W RFX, SYMONE,URINE, UPE RAND, ALDOLASE ####[facility] ,#### CK, CMP, CRP, T4F, TSH3, PP, CBC, ESR, ADDONUAPLUS ####[address] Hematocrit (Bld) [Volume fraction] 40.4 % Normal 34.0-46.4 [facility] Comment on above: Performed By: #### M YOG, SYMONE SERUM, SPE, RPR W RFX, SYMONE,URINE, UPE RAND, ALDOLASE ####[facility] ,#### CK, CMP, CRP, T4F, TSH3, PP, CBC, ESR, ADDONUAPLUS ####[address] Hemoglobin (Bld) [Mass/Vol] 13.6 g/dL Normal 11.8-15.4 [facility] Comment on above: Performed By: #### M YOG, SYMONE SERUM, SPE, RPR W RFX, SYMONE,URINE, UPE RAND, ALDOLASE ####[facility] ,#### CK, CMP, CRP, T4F, TSH3, PP, CBC, ESR, ADDONUAPLUS ####[address] Lymphocytes (Bld) [#/Vol] 1.8 10*3/uL Normal 1.00-4.8 [facility] Comment on above: Performed By: #### M YOG, SYMONE SERUM, SPE, RPR W RFX, SYMONE,URINE, UPE RAND, ALDOLASE ####[facility] ,#### CK, CMP, CRP, T4F, TSH3, PP, CBC, ESR, ADDONUAPLUS ####[address] Lymphocytes/100 WBC (Bld) 18.1 % Normal . [facility] Comment on above: Performed By: #### M YOG, SYMONE SERUM, SPE, RPR W RFX, SYMONE,URINE, UPE RAND, ALDOLASE ####[facility] ,#### CK, CMP, CRP, T4F, TSH3, PP, CBC, ESR, ADDONUAPLUS ####[address] MCH (RBC) [Entitic mass] 33.1 pg Normal 24.7-34.3 [facility] Comment on above: Performed By: #### M YOG, SYMONE SERUM, SPE, RPR W RFX, SYMONE,URINE, UPE RAND, ALDOLASE ####[facility] ,#### CK, CMP, CRP, T4F, TSH3, PP, CBC, ESR, ADDONUAPLUS ####[address] MCV (RBC) [Entitic vol] 98.2 fL Normal 80-100 [facility] Comment on above: Performed By: #### M YOG, SYMONE SERUM, SPE, RPR W RFX, SYMONE,URINE, UPE RAND, ALDOLASE ####[facility] ,#### CK, CMP, CRP, T4F, TSH3, PP, CBC, ESR, ADDONUAPLUS ####[address] Mean Corpuscular HGB Conc 33.7 g/dL Normal 32.0-35.0 [facility] Comment on above: Performed By: #### M YOG, SYMONE SERUM, SPE, RPR W RFX, SYMONE,URINE, UPE RAND, ALDOLASE ####[facility] ,#### CK, CMP, CRP, T4F, TSH3, PP, CBC, ESR, ADDONUAPLUS ####[address] Monocytes (Bld) [#/Vol] 0.7 10*3/uL Normal 0.0-0.8 [facility] Comment on above: Performed By: #### M YOG, SYMONE SERUM, SPE, RPR W RFX, SYMONE,URINE, UPE RAND, ALDOLASE ####[facility] ,#### CK, CMP, CRP, T4F, TSH3, PP, CBC, ESR, ADDONUAPLUS ####[address] Monocytes/100 WBC (Bld) 6.8 % Normal . [facility] Comment on above: Performed By: #### M YOG, SYMONE SERUM, SPE, RPR W RFX, SYMONE,URINE, UPE RAND, ALDOLASE ####[facility] ,#### CK, CMP, CRP, T4F, TSH3, PP, CBC, ESR, ADDONUAPLUS ####[address] Neutrophils (Bld) [#/Vol] 7.1 10*3/uL Normal 1.8-7.7 [facility] Comment on above: Performed By: #### M YOG, SYMONE SERUM, SPE, RPR W RFX, SYMONE,URINE, UPE RAND, ALDOLASE ####[facility] ,#### CK, CMP, CRP, T4F, TSH3, PP, CBC, ESR, ADDONUAPLUS ####[address] Neutrophils/100 WBC (Bld) 72.3 % Normal . [facility] Comment on above: Performed By: #### M YOG, SYMONE SERUM, SPE, RPR W RFX, SYMONE,URINE, UPE RAND, ALDOLASE ####[facility] ,#### CK, CMP, CRP, T4F, TSH3, PP, CBC, ESR, ADDONUAPLUS ####[address] NRBC% 0.0 /100{WBC} Normal 0-0.5 [facility] Comment on above: Performed By: #### M YOG, SYMONE SERUM, SPE, RPR W RFX, SYMONE,URINE, UPE RAND, ALDOLASE ####[facility] ,#### CK, CMP, CRP, T4F, TSH3, PP, CBC, ESR, ADDONUAPLUS ####[address] Platelet mean volume (Bld) [Entitic vol] 9.6 fL Normal 6.3-10.7 [facility] Comment on above: Performed By: #### M YOG, SYMONE SERUM, SPE, RPR W RFX, SYMONE,URINE, UPE RAND, ALDOLASE ####[facility] ,#### CK, CMP, CRP, T4F, TSH3, PP, CBC, ESR, ADDONUAPLUS ####[place] [id number] [place] [id number] [facility] Platelets (Bld) [#/Vol] 297 10*3/uL Normal 150-450 [facility] Comment on above: Performed By: #### M YOG, SYMONE SERUM, SPE, RPR W RFX, SYMONE,URINE, UPE RAND, ALDOLASE ####[facility] ,#### CK, CMP, CRP, T4F, TSH3, PP, CBC, ESR, ADDONUAPLUS ####[address] RBC (Bld) [#/Vol] 4.11 10*6/uL Normal 3.60-5.00 [facility] Comment on above: Performed By: #### M YOG, SYMONE SERUM, SPE, RPR W RFX, SYMONE,URINE, UPE RAND, ALDOLASE ####[facility] ,#### CK, CMP, CRP, T4F, TSH3, PP, CBC, ESR, ADDONUAPLUS ####[place] [id number] [facility] WBC (Bld) [#/Vol] 9.8 10*3/uL Normal 3.8-11.6 [facility] Comment on above: Performed By: #### M YOG, SYMONE SERUM, SPE, RPR W RFX, SYMONE,URINE, UPE RAND, ALDOLASE ####[facility] ,#### CK, CMP, CRP, T4F, TSH3, PP, CBC, ESR, ADDONUAPLUS ####[place] [phone] [place] Comprehensive Metabolic Pane jak 12-12-2024 Albumin [Mass/Vol] 4.7 g/dL Normal 3.5-5.7 [facility] Comment on above: Performed By: #### M YOG, SYMONE SERUM, SPE, RPR W RFX, SYMONE,URINE, UPE RAND, ALDOLASE #### [facility] , #### CK, CMP, CRP, T4F, TSH3, PP, CBC, ESR, ADDONUAPLUS #### [address] Albumin/Globulin [Mass ratio] 1.7 {ratio} Normal [facility] Comment on above: Performed By: #### M YOG, SYMONE SERUM, SPE, RPR W RFX, SYMONE,URINE, UPE RAND, ALDOLASE #### [facility] , #### CK, CMP, CRP, T4F, TSH3, PP, CBC, ESR, ADDONUAPLUS #### [address] ALP [Catalytic activity/Vol] 69 U/L Normal 34-104 [facility] Comment on above: Performed By: #### M YOG, SYMONE SERUM, SPE, RPR W RFX, SYMONE,URINE, UPE RAND, ALDOLASE #### [facility] , #### CK, CMP, CRP, T4F, TSH3, PP, CBC, ESR, ADDONUAPLUS #### [facility] [address] [place] [address] ALT [Catalytic activity/Vol] 20 U/L Normal 7-52 [facility] Comment on above: Performed By: #### M YOG, SYMONE SERUM, SPE, RPR W RFX, SYMONE,URINE, UPE RAND, ALDOLASE #### [facility] , #### CK, CMP, CRP, T4F, TSH3, PP, CBC, ESR, ADDONUAPLUS #### [facility] [address] [place] [address] [place] Anion gap [Moles/Vol] 13.5 mmol/L Normal 6.0-15.0 [facility] Comment on above: Performed By: #### M YOG, SYMONE SERUM, SPE, RPR W RFX, SYMONE,URINE, UPE RAND, ALDOLASE #### [facility] , #### CK, CMP, CRP, T4F, TSH3, PP, CBC, ESR, ADDONUAPLUS #### [facility] [address] AST [Catalytic activity/Vol] 23 U/L Normal 13-39 [facility] Comment on above: Performed By: #### M YOG, SYMONE SERUM, SPE, RPR W RFX, SYMONE,URINE, UPE RAND, ALDOLASE #### [facility] , #### CK, CMP, CRP, T4F, TSH3, PP, CBC, ESR, ADDONUAPLUS #### [address] Bilirubin [Mass/Vol] 0.3 mg/dL Normal 0.3-1.0 [facility] Comment on above: Performed By: #### M YOG, SYMONE SERUM, SPE, RPR W RFX, SYMONE,URINE, UPE RAND, ALDOLASE #### [facility] , #### CK, CMP, CRP, T4F, TSH3, PP, CBC, ESR, ADDONUAPLUS #### [address] Calcium [Mass/Vol] 10.3 mg/dL Normal 8.6-10.3 [facility] Comment on above: Performed By: #### M YOG, SYMONE SERUM, SPE, RPR W RFX, SYMONE,URINE, UPE RAND, ALDOLASE #### [facility] , #### CK, CMP, CRP, T4F, TSH3, PP, CBC, ESR, ADDONUAPLUS #### [facility] [address] Chloride [Moles/Vol] 103 mmol/L Normal 98-107 [facility] Comment on above: Performed By: #### M YOG, SYMONE SERUM, SPE, RPR W RFX, SYMONE,URINE, UPE RAND, ALDOLASE #### [facility] , #### CK, CMP, CRP, T4F, TSH3, PP, CBC, ESR, ADDONUAPLUS #### [facility] [address] CO2 [Moles/Vol] 28.8 mmol/L Normal 21.0-31.0 [facility] Comment on above: Performed By: #### M YOG, SYMONE SERUM, SPE, RPR W RFX, SYMONE,URINE, UPE RAND, ALDOLASE #### [facility] , #### CK, CMP, CRP, T4F, TSH3, PP, CBC, ESR, ADDONUAPLUS #### [address] Creatinine [Mass/Vol] 0.66 mg/dL Normal 0.60-1.20 [facility] Comment on above: Performed By: #### M YOG, SYMONE SERUM, SPE, RPR W RFX, SYMONE,URINE, UPE RAND, ALDOLASE #### [facility] , #### CK, CMP, CRP, T4F, TSH3, PP, CBC, ESR, ADDONUAPLUS #### [address] GFR/1.73 sq M.predicted MDRD (S/P/Bld) [Vol rate/Area] mL/min/{1.73_m2} Normal [facility] Comment on above: Performed By: #### M YOG, SYMONE SERUM, SPE, RPR W RFX, SYMONE,URINE, UPE RAND, ALDOLASE #### [facility] , #### CK, CMP, CRP, T4F, TSH3, PP, CBC, ESR, ADDONUAPLUS #### [facility] [address] [place] [address] [place] Globulin (S) [Mass/Vol] 2.8 g/dL Normal [facility] Comment on above: Performed By: #### M YOG, SYMONE SERUM, SPE, RPR W RFX, SYMONE,URINE, UPE RAND, ALDOLASE #### [facility] , #### CK, CMP, CRP, T4F, TSH3, PP, CBC, ESR, ADDONUAPLUS #### [facility] [address] Glucose [Mass/Vol] 77 mg/dL Normal 70-100 [facility] Comment on above: Result Comment: [facility] Glucose Reference Range is dependent on time and content of last meal. Glucose of more than 200 mg/dL in a nonstressed, ambulatory subject supports the diagnosis of Diabetes Mellitus. ADA recommended reference range Performed By: #### M YOG, SYMONE SERUM, SPE, RPR W RFX, SYMONE,URINE, UPE RAND, ALDOLASE #### [facility] , #### CK, CMP, CRP, T4F, TSH3, PP, CBC, ESR, ADDONUAPLUS #### [place] [address] [place] Potassium [Moles/Vol] 4.3 mmol/L Normal 3.5-5.1 [facility] Comment on above: Performed By: #### M YOG, SYMONE SERUM, SPE, RPR W RFX, SYMONE,URINE, UPE RAND, ALDOLASE #### [facility] , #### CK, CMP, CRP, T4F, TSH3, PP, CBC, ESR, ADDONUAPLUS #### [place] [phone] [facility] Protein [Mass/Vol] 7.5 g/dL Normal 6.0-8.5 [facility] Comment on above: Performed By: #### M YOG, SYMONE SERUM, SPE, RPR W RFX, SYMONE,URINE, UPE RAND, ALDOLASE #### [facility] , #### CK, CMP, CRP, T4F, TSH3, PP, CBC, ESR, ADDONUAPLUS #### [facility] [address] Performed By: #### M YOG, SYMONE SERUM, SPE, RPR W RFX, SYMONE,URINE, UPE RAND, ALDOLASE ####[facility] ,#### CK, CMP, CRP, T4F, TSH3, PP, CBC, ESR, ADDONUAPLUS ####[facility] Sodium [Moles/Vol] 141 mmol/L Normal 136-145 [facility] Comment on above: Performed By: #### M YOG, SYMONE SERUM, SPE, RPR W RFX, SYMONE,URINE, UPE RAND, ALDOLASE #### [facility] , #### CK, CMP, CRP, T4F, TSH3, PP, CBC, ESR, ADDONUAPLUS #### [address] Urea nitrogen [Mass/Vol] 12 mg/dL Normal 7-25 [facility] Comment on above: Performed By: #### M YOG, SYMONE SERUM, SPE, RPR W RFX, SYMONE,URINE, UPE RAND, ALDOLASE #### [facility] , #### CK, CMP, CRP, T4F, TSH3, PP, CBC, ESR, ADDONUAPLUS #### [address] Creatine Kinaseon 12-12-2024 CK [Catalytic activity/Vol] 122 U/L Normal 30-223 [facility] Comment on above: Result Comment: PERF ORMED BY: [place] [address] PATHOLOGIST [employer] TE[employer] CARLOS KNAPP M.D. Performed By: #### M YOG, SYMONE SERUM, SPE, RPR W RFX, SYMONE,URINE, UPE RAND, ALDOLASE #### [facility] , #### CK, CMP, CRP, T4F, TSH3, PP, CBC, ESR, ADDONUAPLUS #### [facility] [address] Creatine kinase [Enzymatic a ctivity/volume] in Serum or PlasmaOrdered By: Jacob Baker on 12-12-2024 CK [Catalytic activity/Vol] Creatine kinase [Enzymatic activity/volume] in Serum or Plasma 30-223 [facility] Creatinine [Mass/volume] in Serum or PlasmaOrdered By: Jacob Baker on 12-12-2024 Creatinine [Mass/Vol] Creatinine [Mass/volume] in Serum or Plasma 0.60-1.20 [facility] Cyclic Citrulliated Pep Abon 12-12-2024 Cyclic Citrulliated Pep Ab 7 Normal 0-19 [facility] Comment on above: Result Comment: Nega tive <20 Weak positive 20 - 39 Moderate positive 40 - 59 Strong positive >59 Performed at: [facility] [address] [id number] Dynamic Balancer: Santy Storey PhD, Phone: [phone] Performed By: #### R A, CYNDI, JO1, SJOGRENS, ANTIR, HELM, [id number], HISAB, C3, C4, CARDIO GMA, CENTROME, CCP, B2 GLYPROT, ADNA, CHROMATIN, CH50 ####[facility] , DNA double strand Ab [Units/ volume] in SerumOrdered By: Jacob Baker on 12-12-2024 DNA double strand Ab Qn (S) DNA double strand Ab [Units/volume] in Serum 0-9 [facility] Comment on above: Negative <5 Equivoca l 5 - 9 Positive >9 Dipstick and Microscopicon 0 12-12-2024 Appearance (U) Clear Normal Clear [facility] Comment on above: Order Comment: Name Collection Type:: Clean-Voided Midstream Performed By: #### M YOG, SYMONE SERUM, SPE, RPR W RFX, SYMONE,URINE, UPE RAND, ALDOLASE ####[facility] ,#### CK, CMP, CRP, T4F, TSH3, PP, CBC, ESR, ADDONUAPLUS ####[place] [address] [place] [id number] [facility] Bacteria,Urine None Seen Normal None Seen [facility] Comment on above: Order Comment: Name Collection Type:: Clean-Voided Midstream Performed By: #### M YOG, SYMONE SERUM, SPE, RPR W RFX, SYMONE,URINE, UPE RAND, ALDOLASE ####[facility] ,#### CK, CMP, CRP, T4F, TSH3, PP, CBC, ESR, ADDONUAPLUS ####[place] [phone] [facility] Bilirubin,Urine Negative Normal Negative [facility] Comment on above: Order Comment: Name Collection Type:: Clean-Voided Midstream Performed By: #### M YOG, SYMONE SERUM, SPE, RPR W RFX, SYMONE,URINE, UPE RAND, ALDOLASE ####[facility] ,#### CK, CMP, CRP, T4F, TSH3, PP, CBC, ESR, ADDONUAPLUS ####[address] Color (U) Light-Yellow Normal Yellow [facility] Comment on above: Order Comment: Name Collection Type:: Clean-Voided Midstream Performed By: #### M YOG, SYMONE SERUM, SPE, RPR W RFX, SYMONE,URINE, UPE RAND, ALDOLASE ####[facility] ,#### CK, CMP, CRP, T4F, TSH3, PP, CBC, ESR, ADDONUAPLUS ####[place] [phone] [facility] Glucose Ql (U) Normal Normal Normal [facility] Comment on above: Order Comment: Name Collection Type:: Clean-Voided Midstream Performed By: #### M YOG, SYMONE SERUM, SPE, RPR W RFX, SYMONE,URINE, UPE RAND, ALDOLASE ####[facility] ,#### CK, CMP, CRP, T4F, TSH3, PP, CBC, ESR, ADDONUAPLUS ####[place] [address] [place] [address] [facility] Hyaline Casts,Urine None Normal 0-8 [facility] Comment on above: Order Comment: Name Collection Type:: Clean-Voided Midstream Performed By: #### M YOG, SYMONE SERUM, SPE, RPR W RFX, SYMONE,URINE, UPE RAND, ALDOLASE ####[facility] ,#### CK, CMP, CRP, T4F, TSH3, PP, CBC, ESR, ADDONUAPLUS ####[address] [address] [facility] Ketones Ql (U) Negative Normal Negative [facility] Comment on above: Order Comment: Name Collection Type:: Clean-Voided Midstream Performed By: #### M YOG, SYMONE SERUM, SPE, RPR W RFX, SYMONE,URINE, UPE RAND, ALDOLASE ####[facility] ,#### CK, CMP, CRP, T4F, TSH3, PP, CBC, ESR, ADDONUAPLUS ####[address] Leukocyte esterase Test strip Ql (U) Negative Normal Negative [facility] Comment on above: Order Comment: Name Collection Type:: Clean-Voided Midstream Performed By: #### M YOG, SYMONE SERUM, SPE, RPR W RFX, SYMONE,URINE, UPE RAND, ALDOLASE ####[facility] ,#### CK, CMP, CRP, T4F, TSH3, PP, CBC, ESR, ADDONUAPLUS ####[place] [phone] [facility] Mucus,Urine Rare Normal [facility] Comment on above: Order Comment: Name Collection Type:: Clean-Voided Midstream Result Comment: PERF ORMED BY: [facility] [address] [place] [address] PATHOLOGIST [employer] TE[employer] CARLOS KNAPP M.D. Performed By: #### M YOG, SYMONE SERUM, SPE, RPR W RFX, SYMONE,URINE, UPE RAND, ALDOLASE ####[facility] ,#### CK, CMP, CRP, T4F, TSH3, PP, CBC, ESR, ADDONUAPLUS ####[place] [address] [place] [address] [facility] Nitrite,Urine Negative Normal Negative [facility] Comment on above: Order Comment: Name Collection Type:: Clean-Voided Midstream Performed By: #### M YOG, SYMONE SERUM, SPE, RPR W RFX, SYMONE,URINE, UPE RAND, ALDOLASE ####[facility] ,#### CK, CMP, CRP, T4F, TSH3, PP, CBC, ESR, ADDONUAPLUS ####[address] [address] [facility] Occult Blood,Urine Negative Normal Negative [facility] Comment on above: Order Comment: Name Collection Type:: Clean-Voided Midstream Performed By: #### M YOG, SYMONE SERUM, SPE, RPR W RFX, SYMONE,URINE, UPE RAND, ALDOLASE ####[facility] ,#### CK, CMP, CRP, T4F, TSH3, PP, CBC, ESR, ADDONUAPLUS ####[address] [address] [facility] pH (U) 6.5 [pH] Normal 5.0-9.0 [facility] Comment on above: Order Comment: Name Collection Type:: Clean-Voided Midstream Performed By: #### M YOG, SYMONE SERUM, SPE, RPR W RFX, SYMONE,URINE, UPE RAND, ALDOLASE ####[facility] ,#### CK, CMP, CRP, T4F, TSH3, PP, CBC, ESR, ADDONUAPLUS ####[address] [address] [facility] Protein,Urine Negative Normal Negative [facility] Comment on above: Order Comment: Name Collection Type:: Clean-Voided Midstream Performed By: #### M YOG, SYMONE SERUM, SPE, RPR W RFX, SYMONE,URINE, UPE RAND, ALDOLASE ####[facility] ,#### CK, CMP, CRP, T4F, TSH3, PP, CBC, ESR, ADDONUAPLUS ####[address] RBC,Urine 1-2 Normal 0-4 [facility] Comment on above: Order Comment: Name Collection Type:: Clean-Voided Midstream Performed By: #### M YOG, SYMONE SERUM, SPE, RPR W RFX, SYMONE,URINE, UPE RAND, ALDOLASE ####[facility] ,#### CK, CMP, CRP, T4F, TSH3, PP, CBC, ESR, ADDONUAPLUS ####[address] Specificy [place],Urine 1.005 Normal 1.001-1.030 [facility] Comment on above: Order Comment: Name Collection Type:: Clean-Voided Midstream Performed By: #### M YOG, SYMONE SERUM, SPE, RPR W RFX, SYMONE,URINE, UPE RAND, ALDOLASE ####[facility] ,#### CK, CMP, CRP, T4F, TSH3, PP, CBC, ESR, ADDONUAPLUS ####[address] Squamous Epithelial Cell,Urine 1-2 Normal 0-2 [facility] Comment on above: Order Comment: Name Collection Type:: Clean-Voided Midstream Performed By: #### M YOG, SYMONE SERUM, SPE, RPR W RFX, SYMONE,URINE, UPE RAND, ALDOLASE ####[facility] ,#### CK, CMP, CRP, T4F, TSH3, PP, CBC, ESR, ADDONUAPLUS ####[address] Urobilinogen,Urine Normal Normal Normal [facility] Comment on above: Order Comment: Name Collection Type:: Clean-Voided Midstream Performed By: #### M YOG, SYMONE SERUM, SPE, RPR W RFX, SYMONE,URINE, UPE RAND, ALDOLASE ####[facility] ,#### CK, CMP, CRP, T4F, TSH3, PP, CBC, ESR, ADDONUAPLUS ####[place] [address] WBC,Urine 1-2 Normal 0-4 [facility] Comment on above: Order Comment: Name Collection Type:: Clean-Voided Midstream Performed By: #### M YOG, SYMONE SERUM, SPE, RPR W RFX, SYMONE,URINE, UPE RAND, ALDOLASE ####[facility] ,#### CK, CMP, CRP, T4F, TSH3, PP, CBC, ESR, ADDONUAPLUS ####[address] Eosinophils Auto (Bld) [#/Vo l]Ordered By: Jacob Baker on 12-12-2024 Eosinophils (Bld) [#/Vol] Automated eosinophil count 0.0-0.45 [facility] Eosinophils/100 WBC Auto (Bl d)Ordered By: Jacob Baker on 12-12-2024 Eosinophils/100 WBC (Bld) Automated eosinophil % . [facility] Epithelial cells.squamous [# /area] in Urine sediment by Automated countOrdered By: Jacob Baker on 12-12-2024 Epithelial cells.squamous Auto (Urine sed) [#/Area] Epithelial cells.squamous [#/area] in Urine sediment by Automated count 0-2 [facility] Erythrocyte Sedimentation Ra don 12-12-2024 ESR (Bld) [Velocity] 19 mm/h Normal 0-19 [facility] Comment on above: Result Comment: PERF ORMED BY: [facility] [address] [facility] [place] [address] PATHOLOGIST [employer] TE[employer] CARLOS KNAPP M.D. Performed By: #### M YOG, SYMONE SERUM, SPE, RPR W RFX, SYMONE,URINE, UPE RAND, ALDOLASE ####[facility] ,#### CK, CMP, CRP, T4F, TSH3, PP, CBC, ESR, ADDONUAPLUS ####[facility] [id number] Erythrocyte distribution wid th Auto (RBC) [Ratio]Ordered By: Jacob Baker on 12-12-2024 Erythrocyte distribution width (RBC) [Ratio] Erythrocyte distribution width [Ratio] by Automated count 11.9-15.3 [facility] Erythrocyte sedimentation ra te by Photometric methodOrdered By: Jacob Baker on 12-12-2024 ESR Photometric method (Bld) [Velocity] Erythrocyte sedimentation rate by Photometric method 0-19 [facility] Erythrocytes [#/area] in Uri ne sediment by Automated countOrdered By: Jacob Baker on 12-12-2024 RBC Auto (Urine sed) [#/Area] Erythrocytes [#/area] in Urine sediment by Automated count 0-4 [facility] Free T4 (Free Thyroxine)on 0 12-12-2024 Free T4 [Mass/Vol] 0.84 ng/dL Normal 0.61-1.12 [facility] Comment on above: Performed By: #### M YOG, SYMONE SERUM, SPE, RPR W RFX, SYMONE,URINE, UPE RAND, ALDOLASE #### [facility] , #### CK, CMP, CRP, T4F, TSH3, PP, CBC, ESR, ADDONUAPLUS #### [facility] [address] Globulin Calc (S) [Mass/Vol] Ordered By: Jacob Baker on 12-12-2024 Globulin (S) [Mass/Vol] Serum globulin measurement by calculation (mass/volume) [facility] Glucose [Mass/volume] in Ser um or PlasmaOrdered By: Jacob Baker on 12-12-2024 Glucose [Mass/Vol] Glucose [Mass/volume ] in Serum or Plasma 70-100 [facility] Comment on above: ADA recommended refe rence rangeRandom Glucose Reference Range is dependent on time and content of last meal. Glucose of more than 200 mg/dL in a nonstressed, ambulatory subject supports the diagnosis of Diabetes Mellitus. Glucose [Mass/volume] in Uri ne by Test stripOrdered By: Jacob Baker on 12-12-2024 Glucose Test strip (U) [Mass/Vol] Glucose [Mass/volume] in Urine by Test strip Normal [facility] Hematocrit Auto (Bld) [Volum e fraction]Ordered By: Jacob Baker on 12-12-2024 Hematocrit (Bld) [Volume fraction] Hematocrit [Volume Fraction] of Blood by Automated count 34.0-46.4 [facility] Hemoglobin Test strip Ql (U) Ordered By: Jacob Baker on 12-12-2024 Hemoglobin Ql (U) Hemoglobin [Presence ] in Urine by Test strip Negative [facility] Hemoglobin [Mass/volume] in BloodOrdered By: Jacob Baker on 12-12-2024 Hemoglobin (Bld) [Mass/Vol] Hemoglobin [Mass/volume] in Blood 11.8-15.4 [facility] Histone Antibodieson 025 Histone Antibodies 1.4 High 0.0-0.9 [facility] Comment on above: Result Comment: Nega tive <1.0 Weak Positive 1.0 - 1.5 Moderate Positive 1.6 - 2.5 Strong Positive >2.5 Performed at: - [facility] [id number] Dynamic Balancer: Anne Oro MD, Phone: [phone] Performed By: #### R A, CYNDI, JO1, SJOGRENS, ANTIR, HELM, [id number], HISAB, C3, C4, CARDIO GMA, CENTROME, CCP, B2 GLYPROT, ADNA, CHROMATIN, CH50 ####[facility] , Hyaline casts [#/area] in Ur ine sediment by Automated countOrdered By: Jacob Baker on 12-12-2024 Hyaline casts Auto (Urine sed) [#/Area] Hyaline casts [#/area] in Urine sediment by Automated count 0-8 [facility] INR in Platelet poor plasma by Coagulation assayOrdered By: Jacob Baker on 12-12-2024 INR Coag (PPP) [Relative time] INR in Platelet poor plasma by Coagulation assay [facility] Comment on above: INR Therapeutic Rang [...] with mechanical heart valves: 3 - 4.5 Immunofixation for UrineOrde red By: Jacob Baker on 12-12-2024 Interpretation Immunofixation (U) [Interp] Immunofixation for Urine . [facility] Comment on above: No monoclonality det ected.Performed at: [facility] [address] [id number] Director: Santy Storey PhD, Phone: [phone] Immunofixation, (SYMONE), Urine on 12-12-2024 Immunofixation, (SYMONE), Urine Comment Normal . [facility] Comment on above: Result Comment: No m onoclonality detected. Performed at: [facility] [address] [id number] Dynamic Balancer: Santy Storey PhD, Phone: [phone] Performed By: #### M YOG, SYMONE SERUM, SPE, RPR W RFX, SYMONE,URINE, UPE RAND, ALDOLASE ####[facility] ,#### CK, CMP, CRP, T4F, TSH3, PP, CBC, ESR, ADDONUAPLUS ####[facility] [id number] Immunofixation,Serumon 12-12 Immunofixation, Serum Comment Normal . [facility] Comment on above: Result Comment: No m onoclonality detected. Performed By: #### M YOG, SYMONE SERUM, SPE, RPR W RFX, SYMONE,URINE, UPE RAND, ALDOLASE ####[facility] ,#### CK, CMP, CRP, T4F, TSH3, PP, CBC, ESR, ADDONUAPLUS ####[address] [place] [address] [facility] Immunoglobulin A, Serum 262 mg/dL Normal 87-352 [facility] Comment on above: Performed By: #### M YOG, SYMONE SERUM, SPE, RPR W RFX, SYMONE,URINE, UPE RAND, ALDOLASE ####[facility] ,#### CK, CMP, CRP, T4F, TSH3, PP, CBC, ESR, ADDONUAPLUS ####[address] [place] [address] [facility] Immunoglobulin G 935 mg/dL Normal 586-1602 The [facility] Comment on above: Performed By: #### M YOG, SYMONE SERUM, SPE, RPR W RFX, SYMONE,URINE, UPE RAND, ALDOLASE ####[facility] ,#### CK, CMP, CRP, T4F, TSH3, PP, CBC, ESR, ADDONUAPLUS ####[address] [place] [address] [facility] Immunoglobulin M, Serum 110 mg/dL Normal 26-217 [facility] Comment on above: Result Comment: Perf ormed at: - [facility] [id number] [place], [place] [id number] Dynamic Balancer: Santy Storey PhD, Phone: [phone] Performed By: #### M YOG, SYMONE SERUM, SPE, RPR W RFX, SYMONE,URINE, UPE RAND, ALDOLASE ####[facility] ,#### CK, CMP, CRP, T4F, TSH3, PP, CBC, ESR, ADDONUAPLUS ####[address] [place] [id number] [facility] ES-1 Antibodyon 12-12-2024 ES-1 Antibody <0.2 Normal 0.0-0.9 The [facility] Comment on above: Performed By: #### R A, CYNDI, JO1, SJOGRENS, ANTIR, HELM, [id number], HISAB, C3, C4, CARDIO GMA, CENTROME, CCP, B2 GLYPROT, ADNA, CHROMATIN, CH50 ####[facility] , Ketones Test strip Ql (U)Ord ered By: Jacob Baker on 12-12-2024 Ketones Ql (U) Ketones [Presence] i n Urine by Test strip Negative [facility] Leukocyte esterase [Presence ] in Urine by Test stripOrdered By: Jacob Chaneyrow on 12-12-2024 Leukocyte esterase Test strip Ql (U) Leukocyte esterase [Presence] in Urine by Test strip Negative [facility] Leukocytes [#/area] in Urine sediment by Automated countOrdered By: Jacob Chaneyrow on 12-12-2024 WBC Auto (Urine sed) [#/Area] Leukocytes [#/area] in Urine sediment by Automated count 0-4 [facility] Leukocytes [#/volume] correc caitlin for nucleated erythrocytes in Blood by Automated counOrdered By: Jacob Chaneyrow on 12-12-2024 WBC corrected for nucl RBC Auto (Bld) [#/Vol] Leukocytes [#/volume] corrected for nucleated erythrocytes in Blood by Automated coun 3.8-11.6 [facility] Lupus Anticoagulant Compon 0 12-12-2024 Dilute Prothrombin Time (dPt) 28.5 Normal 0.0-47.6 [facility] Comment on above: Performed By: #### L UPANTCOAG ####[facility] , dPT Confirm Ratio 1.09 Normal 0.00-1.34 The [facility] Comment on above: Performed By: #### L UPANTCOAG ####[facility] , DRVVT Lupus 29.9 Normal 0.0-47.0 [facility] Comment on above: Performed By: #### L UPANTCOAG ####[facility] , Interpretation Comment: Normal . [facility] Comment on above: Result Comment: No l upus anticoagulant was detected. Performed at: [address] [id number] Dynamic Balancer: Anne Oro MD, Phone: [phone] PERFORMED BY: [facility] [place] [address] PATHOLOGIST [employer] TESTER CARLOS KNAPP M.D. Performed By: #### L UPANTCOAG ####[facility] , PTT-LA 26.0 Normal 0.0-43.5 [facility] Comment on above: Performed By: #### L UPANTCOAG ####[facility] , Thrombin Time 17.0 Normal 0.0-23.0 [facility] Comment on above: Performed By: #### L UPANTCOAG ####[facility] , Lupus anticoagulant [Interpr etation] in Platelet poor plasmaOrdered By: Jacob Baker on 12-12-2024 Lupus anticoagulant (PPP) [Interp] Lupus anticoagulant [Interpretation] in Platelet poor plasma . [facility] Comment on above: No lupus anticoagula nt was detected.Performed at: - [facility] [id number] Director: Anne Oro MD, Phone: [phone] Lymphocytes Auto (Bld) [#/Vo l]Ordered By: Jacob Baker on 12-12-2024 Lymphocytes (Bld) [#/Vol] Lymphocytes [#/volume] in Blood by Automated count 1.00-4.8 [facility] Lymphocytes/100 WBC Auto (Bl d)Ordered By: Jacob Baker on 12-12-2024 Lymphocytes/100 WBC (Bld) Lymphocytes/100 leukocytes in Blood by Automated count . [facility] MCH Auto (RBC) [Entitic mass ]Ordered By: Jacob Baker on 12-12-2024 MCH (RBC) [Entitic mass] MCH [Entitic mass] by Automated count 24.7-34.3 [facility] MCHC Auto (RBC) [Mass/Vol]Or dered By: Jacob Baker on 12-12-2024 MCHC (RBC) [Mass/Vol] MCHC [Mass/volume] by Automated count 32.0-35.0 [facility] MCV Auto (RBC) [Entitic vol] Ordered By: Jacob Baker on 12-12-2024 MCV (RBC) [Entitic vol] MCV [Entitic volume] by Automated count 80-100 [facility] Monocytes Auto (Bld) [#/Vol] Ordered By: Jacob Baker on 12-12-2024 Monocytes (Bld) [#/Vol] Automated blood monocyte count 0.0-0.8 [facility] Monocytes/100 WBC Auto (Bld) Ordered By: Jacob Baker on 12-12-2024 Monocytes/100 WBC (Bld) Automated monocyte % . [facility] Mucus [Presence] in Urine by AutomatedOrdered By: Jacob Baker on 12-12-2024 Mucus Auto Ql (U) Mucus [Presence] in Urine by Automated [facility] Myoglobinon 12-12-2024 Myoglobin [Mass/Vol] ng/mL Low 25-58 [facility] Comment on above: Result Comment: Perf ormed at: - [facility] [place] [id number] Dynamic Balancer: Santy Storey PhD, Phone: [phone] Performed By: #### M YOG, SYMONE SERUM, SPE, RPR W RFX, SYMONE,URINE, UPE RAND, ALDOLASE ####[facility] ,#### CK, CMP, CRP, T4F, TSH3, PP, CBC, ESR, ADDONUAPLUS ####[facility] [id number] Neutrophils Auto (Bld) [#/Vo l]Ordered By: Jacob Baker on 12-12-2024 Neutrophils (Bld) [#/Vol] Neutrophils [#/volume] in Blood by Automated count 1.8-7.7 [facility] Neutrophils/100 WBC Auto (Bl d)Ordered By: Jacob Baker on 12-12-2024 Neutrophils/100 WBC (Bld) Automated neutrophil % . [facility] Nitrite Test strip Ql (U)Ord ered By: Jacob Baker on 12-12-2024 Nitrite Ql (U) Nitrite [Presence] i n Urine by Test strip Negative [facility] No Panel InformationOrdered By: Jacob Baker on 12-12-2024 Estimated GFR (CKD-EPI) > 60.0 mL/Min [facility] Creatinine Clearance (Chem N/A [facility] Protein Electrophoresis M-Vincent Not observed g/dL Not Observed [facility] Protein Electrophoresis Note Comment . [facility] Comment on above: Protein electrophore sis scan will follow via computer,mail, or cotton feeder delivery.Performed at: [place] [id number] Director: Santy Storey PhD, Phone: [phone] Urine Random Prot Electrophor Note Comment . [facility] Comment on above: Protein electrophore sis scan will follow via computer,mail, or cotton feeder delivery. Nucleated erythrocytes [Pres ence] in Blood by Automated countOrdered By: Jacob Baker on 12-12-2024 Nucleated RBC Auto Ql (Bld) Nucleated erythrocytes [Presence] in Blood by Automated count 0-0.5 [facility] Plasma thrombin timeOrdered By: Jacob Baker on 12-12-2024 Thrombin time Coag (PPP) [Time] TT plas 0.0-23.0 [facility] Platelet mean volume Auto (B ld) [Entitic vol]Ordered By: Jacob Baker on 12-12-2024 Platelet mean volume (Bld) [Entitic vol] Platelet mean volume [Entitic volume] in Blood by Automated count 6.3-10.7 [facility] Platelet poor plasma ratio o f lupus anticoagulant-sensitive activated partial thromboOrdered By: Jacob Baker on 12-12-2024 aPTT.lupus sensitive.excess phospholipid actual/normal Coag (PPP) [Relative time] Platelet poor plasma ratio of lupus anticoagulant-sensitive activated partial thrombo 0.0-47.6 [facility] Platelets Auto (Bld) [#/Vol] Ordered By: Jacob Baker on 12-12-2024 Platelets (Bld) [#/Vol] Platelets [#/volume] in Blood by Automated count 150-450 [facility] Potassium [Moles/volume] in Serum or PlasmaOrdered By: Jacob Baker on 12-12-2024 Potassium [Moles/Vol] Potassium [Moles/volume] in Serum or Plasma 3.5-5.1 [facility] Protein Electro, Random Urin trent 12-12-2024 Albumin, Urine 21.6 % Normal . [facility] Comment on above: Performed By: #### M YOG, SYMONE SERUM, SPE, RPR W RFX, SYMONE,URINE, UPE RAND, ALDOLASE ####[facility] ,#### CK, CMP, CRP, T4F, TSH3, PP, CBC, ESR, ADDONUAPLUS ####[address] [address] [place] Mhoxs-3-Ctptnsio, Urine 7.6 % Normal . [facility] Comment on above: Performed By: #### M YOG, SYMONE SERUM, SPE, RPR W RFX, SYMONE,URINE, UPE RAND, ALDOLASE ####[facility] ,#### CK, CMP, CRP, T4F, TSH3, PP, CBC, ESR, ADDONUAPLUS ####[place] [id number] [facility] Vimlz-8-Ejopsjuf, Urine 12.8 % Normal . [facility] Comment on above: Performed By: #### M YOG, SYMONE SERUM, SPE, RPR W RFX, SYMONE,URINE, UPE RAND, ALDOLASE ####[facility] ,#### CK, CMP, CRP, T4F, TSH3, PP, CBC, ESR, ADDONUAPLUS ####[address] [address] [place] Beta Globulin, Urine 40.6 % Normal . [facility] Comment on above: Performed By: #### M YOG, SYMONE SERUM, SPE, RPR W RFX, SYMONE,URINE, UPE RAND, ALDOLASE ####[facility] ,#### CK, CMP, CRP, T4F, TSH3, PP, CBC, ESR, ADDONUAPLUS ####[address] [address] [place] Gamma Globulin, Urine 17.5 % Normal . [facility] Comment on above: Performed By: #### M YOG, SYMONE SERUM, SPE, RPR W RFX, SYMONE,URINE, UPE RAND, ALDOLASE ####[facility] ,#### CK, CMP, CRP, T4F, TSH3, PP, CBC, ESR, ADDONUAPLUS ####[address] M-Vincent % Not Observed Normal Not Observed [facility] Comment on above: Performed By: #### M YOG, SYMONE SERUM, SPE, RPR W RFX, SYMONE,URINE, UPE RAND, ALDOLASE ####[facility] ,#### CK, CMP, CRP, T4F, TSH3, PP, CBC, ESR, ADDONUAPLUS ####[address] Please Note: Comment Normal . [facility] Comment on above: Result Comment: Prot ein electrophoresis scan will follow via computer, mail, or cotton feeder delivery. PERFORMED BY: [facility] [address] [place] [address] PATHOLOGIST [employer] TESTER CARLOS KNAPP M.D. Performed By: #### M YOG, SYMONE SERUM, SPE, RPR W RFX, SYMONE,URINE, UPE RAND, ALDOLASE ####[facility] ,#### CK, CMP, CRP, T4F, TSH3, PP, CBC, ESR, ADDONUAPLUS ####[address] Protein (U) [Mass/Vol] mg/dL Normal Not Estab. Th e [facility] Comment on above: Result Comment: Ve rified by repeat analysis Performed By: #### M YOG, SYMONE SERUM, SPE, RPR W RFX, SYMONE,URINE, UPE RAND, ALDOLASE ####[facility] ,#### CK, CMP, CRP, T4F, TSH3, PP, CBC, ESR, ADDONUAPLUS ####[place] [address] [place] [id number] [facility] Protein Electrophoresis, Ser umon 12-12-2024 Albumin [Mass/Vol] 4.1 g/dL Normal 2.9-4.4 [facility] Comment on above: Performed By: #### M YOG, SYMONE SERUM, SPE, RPR W RFX, SYMONE,URINE, UPE RAND, ALDOLASE ####[facility] ,#### CK, CMP, CRP, T4F, TSH3, PP, CBC, ESR, ADDONUAPLUS ####[place] [id number] [facility] Albumin/Globulin [Mass ratio] 1.2 {ratio} Normal 0.7-1.7 [facility] Comment on above: Performed By: #### M YOG, SYMONE SERUM, SPE, RPR W RFX, SYMONE,URINE, UPE RAND, ALDOLASE ####[facility] ,#### CK, CMP, CRP, T4F, TSH3, PP, CBC, ESR, ADDONUAPLUS ####[place] [address] [facility] Lqkpm-1-Zsjhlcmm 0.3 g/dL Normal 0.0-0.4 [facility] Comment on above: Performed By: #### M YOG, SYMONE SERUM, SPE, RPR W RFX, SYMONE,URINE, UPE RAND, ALDOLASE ####[facility] ,#### CK, CMP, CRP, T4F, TSH3, PP, CBC, ESR, ADDONUAPLUS ####[place] [id number] [facility] Osfsr-2-Ztitytfk 0.9 g/dL Normal 0.4-1.0 [facility] Comment on above: Performed By: #### M YOG, SYMONE SERUM, SPE, RPR W RFX, SYMONE,URINE, UPE RAND, ALDOLASE ####[facility] ,#### CK, CMP, CRP, T4F, TSH3, PP, CBC, ESR, ADDONUAPLUS ####[address] [place] [address] [facility] Beta Globulin 1.2 g/dL Normal 0.7-1.3 [facility] Comment on above: Performed By: #### M YOG, SYMONE SERUM, SPE, RPR W RFX, SYMONE,URINE, UPE RAND, ALDOLASE ####[facility] ,#### CK, CMP, CRP, T4F, TSH3, PP, CBC, ESR, ADDONUAPLUS ####[facility] [place] [address] [facility] Gamma Globulin 1.0 g/dL Normal 0.4-1.8 [facility] Comment on above: Performed By: #### M YOG, SYMONE SERUM, SPE, RPR W RFX, SYMONE,URINE, UPE RAND, ALDOLASE ####[facility] ,#### CK, CMP, CRP, T4F, TSH3, PP, CBC, ESR, ADDONUAPLUS ####[address] [place] [address] [facility] Globulin (S) [Mass/Vol] 3.4 g/dL Normal 2.2-3.9 [facility] Comment on above: Performed By: #### M YOG, SYMONE SERUM, SPE, RPR W RFX, SYMONE,URINE, UPE RAND, ALDOLASE ####[facility] ,#### CK, CMP, CRP, T4F, TSH3, PP, CBC, ESR, ADDONUAPLUS ####[facility] [place] [address] [facility] M-Vincent Not Observed Normal Not Observed [facility] Comment on above: Performed By: #### M YOG, SYMONE SERUM, SPE, RPR W RFX, SYMONE,URINE, UPE RAND, ALDOLASE ####[facility] ,#### CK, CMP, CRP, T4F, TSH3, PP, CBC, ESR, ADDONUAPLUS ####[address] [place] [address] [place] SPE-Note Comment Normal . [facility] Comment on above: Result Comment: Prot ein electrophoresis scan will follow via computer, mail, or cotton feeder delivery. Performed at: - [facility] [id number] Dynamic Balancer: Santy Storey PhD, Phone: [phone] Performed By: #### M YOG, SYMONE SERUM, SPE, RPR W RFX, SYMONE,URINE, UPE RAND, ALDOLASE ####[facility] ,#### CK, CMP, CRP, T4F, TSH3, PP, CBC, ESR, ADDONUAPLUS ####[facility] [id number] Protein Test strip (U) [Mass /Vol]Ordered By: Jacob Baker on 12-12-2024 Protein (U) [Mass/Vol] Protein [Mass/vol ume] in Urine by Test strip Negative [facility] Protein [Mass/volume] in Ser um or PlasmaOrdered By: Jacob Baker on 12-12-2024 Protein [Mass/Vol] Protein [Mass/volume ] in Serum or Plasma 6.0-8.5 [facility] Prothrombin time (PT)Ordered By: Jacob Baker on 12-12-2024 PT Coag (PPP) [Time] Prothrombin time (PT) 9.0- 12.9 [facility] Comment on above: A hematocrit value g reater than 55% may lead to inaccurate results in coagulation testing. Patients having hematocrit values >55% require a special collection tube for coagulation studies. Please contact the laboratory at [phone] for redraw instructions. RBC Auto (Bld) [#/Vol]Ordere d By: Jacob Baker on 12-12-2024 RBC (Bld) [#/Vol] Erythrocytes [#/volu me] in Blood by Automated count 3.60-5.00 [facility] RPR w/rfx to Quant TP Abson 12-12-2024 RPR, Rfx Quant RPR Non-Reactive Normal Non Reactive [facility] e [facility] Comment on above: Result Comment: Perf ormed at: [facility] [address] [id number] Dynamic Balancer: Santy Storey PhD, Phone: [phone] PERFORMED BY: [facility] [address] [place] [address] PATHOLOGIST [employer] TESTER CARLOS KNAPP M.D. Performed By: #### M YOG, SYMONE SERUM, SPE, RPR W RFX, SYMONE,URINE, UPE RAND, ALDOLASE ####[facility] ,#### CK, CMP, CRP, T4F, TSH3, PP, CBC, ESR, ADDONUAPLUS ####[facility] [id number] Rheumatoid Factoron 12-13-19 25 Rheumatoid Factor <10.0 Normal <14.0 [facility] Comment on above: Result Comment: Perf ormed at: [facility] [address] [id number] Dynamic Balancer: Santy Storey PhD, Phone: [phone] Performed By: #### R A, CYNDI, JO1, SJOGRENS, ANTIR, HELM, [id number], HISAB, C3, C4, CARDIO GMA, CENTROME, CCP, B2 GLYPROT, ADNA, CHROMATIN, CH50 ####[facility] , Ribonucleoprotein antibody a ssayOrdered By: Jacob Baker on 12-12-2024 IOS PROGRAMMER Antibody <0.2 AI 0.0-0.9 [facility] Scl-70 antibody assayOrdered By: Jacob Baker on 12-12-2024 Scl-70 (Scleroderma) Antibody <0.2 AI 0.0-0.9 [facility] Scleroderma 70 Antibodieson 12-12-2024 Scleroderma 70 Antibodies <0.2 Normal 0.0-0.9 [facility] Comment on above: Performed By: #### R A, CYNDI, JO1, SJOGRENS, ANTIR, HELM, [id number], HISAB, C3, C4, CARDIO GMA, CENTROME, CCP, B2 GLYPROT, ADNA, CHROMATIN, CH50 ####[facility] , Screening dilute Kuldip's v iper venom time (DRVVT) with reflex to confirmatory testOrdered By: Jacob Baker on 12-12-2024 dRVVT Coag (PPP) [Time] Screening dilute Kuldip's viper venom time (DRVVT) with reflex to confirmatory test 0.0-47.0 [facility] Screening lupus anticoagulan t-sensitive activated partial thromboplastin time (aPTT)Ordered By: Jacob Baker on 12-12-2024 aPTT.lupus sensitive Coag (PPP) [Time] Screening lupus anticoagulant-sensitive activated partial thromboplastin time (aPTT) 0.0-43.5 [facility] Serum Es-1 extractable nucle ar antibody assay (units/volume)Ordered By: Jacob Baker on 12-12-2024 Es-1 extractable nuclear Ab Qn (S) Serum Es-1 extractable nuclear antibody assay (units/volume) 0.0-0.9 [facility] Serum RPR testOrdered By: Stephany Baker on 12-12-2024 Reagin Ab RPR Ql (S) Reagin Ab [Presence ] in Serum by RPR Non Reactive [facility] Comment on above: Performed at: [address] [id number] Director: Santy Storey PhD, Phone: [phone] Serum Sjogrens syndrome-A ex tractable nuclear antibody assay (units/volume)Ordered By: Jacob Baker on 12-12-2024 Sjogrens syndrome-A extractable nuclear Ab Qn (S) Serum Sjogrens syndrome-A extractable nuclear antibody assay (units/volume) 0.0-0.9 [facility] Serum Sjogrens syndrome-B ex tractable nuclear antibody assay (units/volume)Ordered By: Jacob Baker on 12-12-2024 Sjogrens syndrome-B extractable nuclear Ab Qn (S) Serum Sjogrens syndrome-B extractable nuclear antibody assay (units/volume) 0.0-0.9 [facility] Serum Helm extractable nucl ear antigen (HERIBERTO) antibody assay (units/volume)Ordered By: Jacob Baker on 12-12-2024 Helm extractable nuclear Ab Qn (S) Serum Helm extractable nuclear antigen (HERIBERTO) antibody assay (units/volume) 0.0-0.9 [facility] Serum aldolase measurementOr dered By: Jacob Baker on 12-12-2024 Aldolase 4.2 U/L Normal 3.3-10.3 [facility] Comment on above: Performed at: [facility] [address] [id number] Director: Santy Storey PhD, Phone: [phone] Result Comment: Perf ormed at: [facility] [id number] Dynamic Balancer: Santy Storey PhD, Phone: [phone] PERFORMED BY: [place] [address] PATHOLOGIST [employer] TESTER CARLOS KNAPP M.D. Performed By: #### M YOG, SYMONE SERUM, SPE, RPR W RFX, SYMONE,URINE, UPE RAND, ALDOLASE ####[facility] ,#### CK, CMP, CRP, T4F, TSH3, PP, CBC, ESR, ADDONUAPLUS ####[facility] [id number] [address] Serum beta 2 glycoprotein 1 IgM antibody assay (units/volume)Ordered By: Jacob Baker on 12-12-2024 Beta 2 glycoprotein 1 IgM Qn (S) Beta 2 glycoprotein 1 IgM Ab [Units/volume] in Serum 0-32 [facility] Comment on above: Result Units: GPI Ig M unitsThe reference interval reflects a 3SD or 99th percentileinterval, which is thought to represent a potentiallyclinically significant result in accordance with theInternational Consensus Statement on the classificationcriteria for definitive antiphospholipid syndrome (APS). JThromb Haem 2006;4:295-306.Performed at: [employer] [facility] [id number] Director: Santy Storey PhD, Phone: [phone] Serum cardiolipin IgA antibo dy assay by immunoassay (units/volume)Ordered By: Jacob Baker on 12-12-2024 Cardiolipin IgA IA Qn (S) Cardiolipin IgA Ab [Units/volume] in Serum by Immunoassay 0-11 [facility] Comment on above: Negative: <12 Indete rminate: 12 - 20 Low-Med Positive: >20 - 80 High Positive: >80 Serum cardiolipin IgG antibo dy assay by immunoassay (units/volume)Ordered By: Jacob Baker on 12-12-2024 Cardiolipin IgG IA Qn (S) Cardiolipin IgG Ab [Units/volume] in Serum by Immunoassay 0-14 [facility] Comment on above: Negative: <15 Indete rminate: 15 - 20 Low-Med Positive: >20 - 80 High Positive: >80 Serum cardiolipin IgM antibo dy assay by immunoassay (units/volume)Ordered By: Jacob Baker on 12-12-2024 Cardiolipin IgM IA Qn (S) Cardiolipin IgM Ab [Units/volume] in Serum by Immunoassay 0-12 [facility] Comment on above: Negative: <13 Indete rminate: 13 - 20 Low-Med Positive: >20 - 80 High Positive: >80 Serum centromere protein B a ntibody assay (units/volume)Ordered By: Jacob Baker on 12-12-2024 Centromere protein B Ab Qn (S) Serum centromere protein B antibody assay (units/volume) 0.0-0.9 [facility] Comment on above: Performed at: [address] [id number] Director: Santy Storey PhD, Phone: [phone] Serum globulin measurement ( mass/volume)Ordered By: Jacob Baker on 12-12-2024 Globulin (S) [Mass/Vol] Serum globulin measurement (mass/volume) 2.2-3.9 [facility] Serum histone IgG antibody a ssay by immunoassay (units/volume)Ordered By: Jacob Baker on 12-12-2024 Histone IgG IA Qn (S) Serum histone IgG antibody assay by immunoassay (units/volume) High 0.0-0.9 [facility] Comment on above: Negative <1.0 Weak P ositive 1.0 - 1.5 Moderate Positive 1.6 - 2.5 Strong Positive >2.5Performed at: [facility]wz[facility] [place], [place] [id number] Director: Anne Oro MD, Phone: [phone] Serum immunofixation electro phoresisOrdered By: Jacob Baker on 12-12-2024 Serum Immunofixation Comment . [facility] Comment on above: No monoclonality det ected. Serum nuclear antibody titer Ordered By: Jacob Baker on 12-12-2024 Nuclear Ab (S) [Titer] Serum nuclear ant ibody titer . [facility] Comment on above: Negative <1:80 Borde rline 1:80 Positive >1:80ICAP nomenclature: [id number] more information about Hep-2 cell patterns useANApatterns.org, the official website for theInternational Consensus on Antinuclear Antibody (CYNDI)Patterns (ICAP).Performed at: [facility] [place] [address] [id number] Director: Santy Storey PhD, Phone: [phone] Serum or plasma IgA measurem ent (mass/volume)Ordered By: Jacob Baker on 12-12-2024 IgA [Mass/Vol] IgA [Mass/volume] in Serum or Plasma 87-352 [facility] Serum or plasma IgG measurem ent (mass/volume)Ordered By: Jacob Baker on 12-12-2024 IgG [Mass/Vol] IgG [Mass/volume] in Serum or Plasma [phone] [facility] Serum or plasma IgM measurem ent (mass/volume)Ordered By: Jacob Baker on 12-12-2024 IgM [Mass/Vol] IgM [Mass/volume] in Serum or Plasma 26-217 [facility] Comment on above: Performed at: [facility] [address] [id number] Director: Santy Storey PhD, Phone: [phone] Serum or plasma albumin audie urement (mass/volume)Ordered By: Jacob Baker on 12-12-2024 Albumin [Mass/Vol] Albumin [Mass/volume ] in Serum or Plasma 2.9-4.4 [facility] Serum or plasma albumin/glob ulin mass ratioOrdered By: Jacob Baker on 12-12-2024 Albumin/Globulin [Mass ratio] Serum or plasma albumin/globulin mass ratio 0.7-1.7 [facility] Serum or plasma alpha 1 glob ulin measurement by electrophoresis (mass/volume)Ordered By: Jacob Baker on 12-12-2024 Alpha 1 globulin Elph [Mass/Vol] Serum or plasma alpha 1 globulin measurement by electrophoresis (mass/volume) 0.0-0.4 [facility] Serum or plasma alpha 2 glob ulin measurement by electrophoresis (mass/volume)Ordered By: Jacob Baker on 12-12-2024 Alpha 2 globulin Elph [Mass/Vol] Serum or plasma alpha 2 globulin measurement by electrophoresis (mass/volume) 0.4-1.0 [facility] Serum or plasma anion gap de terminationOrdered By: Jacob Baker on 12-12-2024 Anion gap [Moles/Vol] Serum or plasma an ion gap determination 6.0-15.0 [facility] Serum or plasma beta globuli n measurement by electrophoresis (mass/volume)Ordered By: Jacob Baker on 12-12-2024 Beta globulin Elph [Mass/Vol] Serum or plasma beta globulin measurement by electrophoresis (mass/volume) 0.7-1.3 [facility] Serum or plasma chromatin an tibody assay (units/volume)Ordered By: Jacob Baker on 12-12-2024 Chromatin Ab Qn Serum or plasma chromatin antibody assay (units/volume) 0.0-0.9 [facility] Serum or plasma complement C 3 measurement (mass/volume)Ordered By: Jacob Baker on 12-12-2024 Complement C3 [Mass/Vol] Serum or plasma complement C3 measurement (mass/volume) 82-167 [facility] Serum or plasma complement C 4 measurement (mass/volume)Ordered By: Jacob Baker on 12-12-2024 Complement C4 [Mass/Vol] Serum or plasma complement C4 measurement (mass/volume) 12-38 [facility] Serum or plasma cyclic adeno sine monophosphate measurement (moles/volume)Ordered By: Jacob Baker on 12-12-2024 Adenosine monophosphate.cyclic [Moles/Vol] Serum or plasma cyclic adenosine monophosphate measurement (moles/volume) 0-19 [facility] Comment on above: Negative <20 Weak po sitive 20 - 39 Moderate positive 40 - 59 Strong positive >59Performed at: [facility] [address] [id number] Director: Santy Storey PhD, Phone: [phone] Serum or plasma gamma globul in measurement by electrophoresis (mass/volume)Ordered By: Jacob Baker on 12-12-2024 Gamma globulin Elph [Mass/Vol] Serum or plasma gamma globulin measurement by electrophoresis (mass/volume) 0.4-1.8 [facility] Serum or plasma myoglobin me asurement (mass/volume)Ordered By: Jacob Baker on 12-12-2024 Myoglobin [Mass/Vol] Serum or plasma myoglobin measurement (mass/volume) Low 25-58 [facility] Comment on above: Performed at: [facility] [address] [id number] Director: Santy Storey PhD, Phone: [phone] Serum or plasma rheumatoid f actor measurement (units/volume)Ordered By: Jacob Baker on 12-12-2024 Rheumatoid factor Qn Serum or plasma rheumatoid factor measurement (units/volume) <14.0 [facility] Comment on above: Performed at: [facility] [place] [address] [id number] Director: Santy Sotrey PhD, Phone: [phone] Sjogrens Anti-SSA/SSBon 11-14 SS-A/Ro Sjogrens Antibody <0.2 Normal 0.0-0.9 [facility] Comment on above: Performed By: #### R A, CYNDI, JO1, SJOGRENS, ANTIR, HELM, SON34SW, HISAB, C3, C4, CARDIO GMA, CENTROME, CCP, B2 GLYPROT, ADNA, CHROMATIN, CH50 ####[facility] , SS-B/La Sjogrens Antibody <0.2 Normal 0.0-0.9 [facility] Comment on above: Performed By: #### R A, CYNDI, JO1, SJOGRENS, ANTIR, HELM, ATH50BC, HISAB, C3, C4, CARDIO GMA, CENTROME, CCP, B2 GLYPROT, ADNA, CHROMATIN, CH50 ####[facility] , Sodium [Moles/volume] in Ser um or PlasmaOrdered By: Jacob Baker on 12-12-2024 Sodium [Moles/Vol] Sodium [Moles/volume ] in Serum or Plasma 136-145 [facility] Specific gravity Test strip (U) [Rel density]Ordered By: Jacob Baker on 12-12-2024 Specific gravity (U) [Rel density] Specific gravity of Urine by Test strip 1.001-1.030 [facility] Thyroid Stimulating Hormoneo n 12-12-2024 TSH Qn 0.91 m[IU]/L Normal 0.45-5.33 [facility] Comment on above: Result Comment: PERF ORMED BY: [place] [address] PATHOLOGIST [employer] TESTER CARLOS KNAPP M.D. Performed By: #### M YOG, SYMONE SERUM, SPE, RPR W RFX, SYMONE,URINE, UPE RAND, ALDOLASE #### [facility] , #### CK, CMP, CRP, T4F, TSH3, PP, CBC, ESR, ADDONUAPLUS #### [facility] [address] Thyrotropin [Units/volume] i n Serum or PlasmaOrdered By: Jacob Baker on 12-12-2024 TSH Qn Thyrotropin [Units/volume] in Serum or Plasma 0.45-5.33 [facility] Thyroxine (T4) free [Mass/vo lume] in Serum or PlasmaOrdered By: Jacob Baker on 12-12-2024 Free T4 [Mass/Vol] Thyroxine (T4) free [Mass/volume] in Serum or Plasma 0.61-1.12 [facility] Total hemolytic complement C H50 assayOrdered By: Jacob Baker on 12-12-2024 Total Complement (CH50) >60 U/mL >41 [facility] Comment on above: Age Male Female 1 - 30 days Not Estab. Not Estab. 31 days - 6 months >32 >20 7 months - 17 years >39 >39 >17 years >41 >41 NOTE: The adult ( >17 years ) reference interval range is used to flag abnormals on this report. If the patient is 17 years old or younger, use the table above to determine out of range values.Performed at: [facility] [id number] Director: Santy Storey PhD, Phone: [phone] Urea nitrogen [Mass/volume] in Serum or PlasmaOrdered By: Jacob Baker on 12-12-2024 Urea nitrogen [Mass/Vol] Urea nitrogen [Mass/volume] in Serum or Plasma 04-07 [facility] Urine alpha 1 globulin/total protein by electrophoresisOrdered By: Jacob Baker on 12-12-2024 Alpha 1 globulin Elph (U) [Mass fraction] Urine alpha 1 globulin/total protein by electrophoresis . [facility] Urine alpha 2 globulin/total protein ratio by electrophoresisOrdered By: Jacob Baker on 12-12-2024 Alpha 2 globulin Elph (U) [Mass fraction] Urine alpha 2 globulin/total protein ratio by electrophoresis . [facility] Urine beta globulin measurem ent by electrophoresis (mass/volume)Ordered By: Jacob Baker on 12-12-2024 Beta globulin Elph (U) [Mass/Vol] Urine beta globulin measurement by electrophoresis (mass/volume) . [facility] Urine protein measurement (m ass/volume)Ordered By: Jacob Baker on 12-12-2024 Protein (U) [Mass/Vol] Protein [Mass/vol ume] in Urine Not Estab. [facility] Comment on above: Verified by repeat analysis Urobilinogen Test strip (U) [Mass/Vol]Ordered By: Jacob Baker on 12-12-2024 Urobilinogen (U) [Mass/Vol] Urobilinogen [Mass/volume] in Urine by Test strip Normal [facility] WBC Auto (Bld) [#/Vol]Ordere d By: Jacob Baker on 03-31-2025 WBC (Bld) [#/Vol] Leukocytes [#/volume ] in Blood by Automated count 3.8-11.6 [facility] aPTT in Platelet poor plasma by Coagulation assayOrdered By: Jacob Baker on 12-12-2024 aPTT Coag (PPP) [Time] Activated partial thromboplastin time (aPTT) in platelet poor plasma by coagulation a 25.1-36.5 [facility] Comment on above: A hematocrit value g reater than 55% may lead to inaccurate results in coagulation testing. Patients having hematocrit values >55% require a special collection tube for coagulation studies. Please contact the laboratory at [phone] for redraw instructions. aPTT.lupus sensitive/aPTT.babs pus sensitive W excess phospholipid (screen to confirm raOrdered By: Jacob Baker on 12-12-2024 aPTT.lupus sensitive/aPTT.lupus sensitive W excess phospholipid Coag (PPP) [Ratio] aPTT.lupus sensitive/aPTT.lupus sensitive W excess phospholipid (screen to confirm ra 0.00-1.34 [facility] pH Test strip (U)Ordered By: Jacob Baker on 12-12-2024 pH (U) pH of Urine by Test strip 5.0-9.0 [facility] US Abdomen, Limitedon 2024 US Abdomen, Limited Exam Date/Time: 11/29/2024 07:20 EDT Reason for Exam: K86.2 Cyst of pancreas Report IMPRESSION: NO CHANGE IN SIZE COMPLEX PREDOMINANTLY CYSTIC 2.2 X 3.7 X 2.5 CM AREA PANCREATIC MASS. DIFFERENTIAL REMAINS PANCREATIC CYST/PSEUDOCYST VERSUS MESENTERIC CYST. ABDOMINAL SONOGRAPHY WITH COLOR FLOW. CLINICAL HISTORY: K86.2 CYST OF PANCREAS COMPARISON: MRI ABDOMEN, 05/02/2021. CT ABDOMEN PELVIS, 03/29/2021. FINDINGS: Liver is normal in size, shape, and echogenicity. No intrahepatic, and no extrahepatic ductal dilatation. Common duct measures 5 mm. Color-flow without anomaly. Gallbladder contains no shadowing and no echogenic foci. No pericholecystic fluid. No gallbladder wall thickening. Pancreatic head and tail normal in size, shape, and echogenicity. Along the anterior margin of the mid to distal pancreatic body, a 2.2 x 3.7 x 2.5 cm complex, predominantly cystic mass is identified, in comparison with prior MRI measurement of 1.9 x 3.6 x 2.9 cm Technical Comments: Ordering Provider: Jennie Durand FINAL REPORT Dictated: 11/30/2024 12:17 pm Julio Snyder MD Signed (Electronic Signature): 11/30/2024 12:17 pm Signed by: Julio Snyder MD Transcribed by: MARCO Technologist: [facility] Main OR Intraoperative Recor don 11-28-2024 Main OR Intraoperative Record Main OR Intraoperative Record IntraOp Document Type FTPM Summary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 Biopsy, breast, with placement of breast localization device(s) (eg, clip, metallic pellet), when performed, and imaging of the biopsy specimen, when performed, percutaneous; first lesion, including ultrasound guidance (07/11/2024), Hysterectomy (12/05/2022), Endoscopic plantar fasciotomy (02/16/2020), Endoscopic plantar fasciotomy (06/02/2019), LEFT ELBOW ULNAR NERVE DECOMPRESSION (02/11/2019), x3, Foot, Gastric bypass operation, History of tubal ligation, Lumbar puncture to lower intracranial pressure. Discharge Vitals Temperature (Tympanic) 36.7 ???C Heart Rate (Peripheral) 75 Blood Pressure 132/84 Height 170 cm Height 67 in Weight 90.2 kg Weight 198.857 lb BMI 31.21 What to do next Scheduled Follow-Up Appointments Thursday 8:00 AM EST With: KURT BALBUENA CNP Where: [facility] Medicine [place] [phone]- Medications What How Much When Why Instructions Unchanged acetaminophen (Tylenol) 325 Milligram By Mouth Every 4 hours as needed for as needed for pain Contact prescribing physician if questions or concerns Unchanged duloxetine (Cymbalta) 60 Milligram By Mouth 2 times a day per dr hcaparro Contact prescribing physician if questions or concerns Unchanged ferrous sulfate (ferrous sulfate 325 mg Tab) TAKE 1 TABLET BY MOUTH EVERY DAY FOR 30 DAYS Contact prescribing physician if questions or concerns Unchanged lamotrigine (lamotrigine 25 mg Tab) TAKE 3 TABLETS BY MOUTH EVERY DAY Contact prescribing physician if questions or concerns Unchanged multivitamin with minerals (Multi-Day Plus Minerals) By Mouth Every day Contact prescribing physician if questions or concerns Unchanged ondansetron (Zofran 8 mg Tab) 1 Tablets By Mouth 2 times a day Nausea Contact prescribing physician if questions or concerns Unchanged trazodone 100 Milligram By Mouth Once a day (at bedtime) Contact prescribing physician if questions or concerns What How Much When Why Comments Stop Taking gabapentin (gabapentin 100 mg Cap) 1 Capsules By Mouth 3 times a day Chronic pain syndrome Allergies Abilify (suicidal) BuSpar (palpitations) Coconut Oil (Swelling, Itching) Problems Ongoing - Any problem that you are currently receiving treatment for. Alcohol abuse, uncomplicated Bipolar disorder BMI 31.0-31.9,adult Borderline personality disorder Chronic pain syndrome History of bypass of stomach Hypertension Iron deficiency anemia Left breast mass Muscle weakness-general Obesity (BMI 30-39.9) Overweight (BMI 25.0-29.9) Pancreatic mass Smoker Vitamin D deficiency Historical - Any problem that you are no longer receiving treatment for. Alcohol abuse Patient Survey You may receive a survey via text or e-mail asking about your office visit. Please share your experience with us by completing your survey. We appreciate your feedback and thank you for choosing us for your care. Romeo Mullins [facility] Family Medicine Office/Clini c Noteon 10-14-2024 Family Medicine Office/Clinic Note Family Medicine Office/Clinic Note Chief Complaint Pain follow up HPI Staff Pt presents today for 2wk follow up to chronic pain. Treated w/gabapentin 100mg. Pt denies relief from pain with med. Brain MRI? Has not scheduled yet due to rescheduling on pt's end. Rheumatoid factor ordered last encounter. NEG (done @ [facility]) Referred to [facility]. Did see, but waiting for MRI brain results. PHQ9: 14 Does see psychiatrist. Concerned she may have Raynaud's. 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 History of Present Illness 33 year old patient presents today in f/u for chronic pain syndrome. She was started on gabapentin 100 mg one tablet po TID at her last visit. She states she is not sure whether this medication helped or not. She states she continues with chronic multiple joint pain. She states she has to reschedule the MRI as she did not go the day it was scheduled due to the weather. She states she has a f/u appointment with [facility] on 10/20/2024. She reports left-sided back pain that radiates down her left leg. She states she has not taken anything for this and it is a constant pain- in review of her recent visit with neurology they ordered an EMG of the lower extremities and this has not been conducted to date. She is requesting a referral to rheumatology as the MD at [facility] suggested she may have Raynaud's phenomenon. Patient states she has not had any alcoholic beverages since her last visit. Review of Systems PHQ Score Initial Depression Screen Score: 3 SCORE Detailed Depression Screen Score: 11 Total Depression Screen Score: 14 Physical Exam Vitals & Measurements T: 36.7 ???C(Tympanic) HR: 75(Peripheral) BP: 132/84 SpO2: 99% HT: 67 in HT: 170 cm WT: 90.2 kg WT: 198.857 lb BMI: 31.21 General: alert, no acute distress Cardiovascular: regular rate and rhythm, normal peripheral perfusion Respiratory: Lungs CTA, respirations non labored Extremities: no deformity, no trauma Neurological: oriented x 4, LOC appropriate for age, speech normal Assessment/Plan 1. Chronic pain syndrome (G89.4: Chronic pain syndrome) Review of recent visit with [facility] on 09/21/2024- awaiting EMG results Encouraged to keep appointment with neurology Increase gabapentin to 300 mg one tablet po TID Referral placed for rheumatology Reviewed [facility], TSH, and myoglobin results f/u 4-6 weeks Ordered: gabapentin, 300 mg = 1 cap(s), Oral, TID, # 90 cap(s), Refills(s) 0, Pharmacy: [facility]/pharmacy #[id number], 170, cm, 10/14/24 9:02:00 EST, Height/Length Dosing, 90.2, kg, 10/14/24 9:02:00 EST, Weight Dosing 2. Raynaud phenomenon (I73.00: Raynaud's syndrome without gangrene) Ordered: [facility] External Ambulatory Referral 3. Alcohol abuse, uncomplicated (F10.10: Alcohol abuse, uncomplicated) Monitor for s/sx of alcohol dependence Recheck Vitamin B, folate, TIBC, Ferritin, Magnesium, phosphate, & zinc annually Encouraged to limit alcohol consumption to 4-6 ounces when she drinks Encouraged to continue with counseling f/u in 4-6 weeks 4. BMI 31.0-31.9,adult (Z68.31: Body mass index [BMI] 31.0-31.9, adult) The standard range for ages 18 and older is >=18.5 and < 25 kg/m2. Your BMI today was above this range, this falls in the overweight to obese category and there are medical benefits to weight loss. We can offer counselling, referral, and/or medical support in addressing this problem. Your BMI and weight management will be followed at subsequent visits. 5. Obesity (BMI 30-39.9) (E66.9: Obesity, unspecified) The standard range for [...] will be followed at subsequent visits. 6. Smoker (F17.200: Nicotine dependence, unspecified, uncomplicated) We strongly recommend to quit tobacco use. Cigarette smoking harms nearly every organ of the body, causes many diseases, and reduces the health of smokers in general. Quitting smoking lowers your risk for smoking-related diseases and can add years to your life. We encourage you to visit www.smokefree.gov access to helpful resources including free telephone support. If you decide on prescription treatment to help you quit, we would be happy to provide these. Follow-up With When Contact Information KURT BALBUENA CNP, FAM Within [address] [place] [phone] Business (1) Additional Instructions: Chronic pain syndrome Patient Education Binge-Drinking Information, Adult Problem List/Past Medical History Ongoing Alcohol abuse, uncomplicated Bipolar disorder BMI 31.0-31.9,adult Borderline personality disorder Chronic pain syndrome History of bypass of stomach Hypertension Iron deficiency anemia Left breast mass Muscle weakness-general Obesity (BMI 30-39.9) Overweight (BMI 25.0 (more content not included)... Normal [facility] Comment on above: Result Comment: Elec tronically Signed By: KURT BALBUENA CNP\.br\Date and Time Signed: 10/14/24 09:39 EST Pre-Visit Planningon 025 Pre-Visit Planning Pre-Visit Planning From: Lina Chirinos To: KURT BALBUENA CNP; Sent: 10/13/2024 14:16:22 EST Subject: Pre-Visit Planning Due Date/Time: 10/13/2024 14:16:00 EST Caller Name: JOSÉ ANTONIO SHAZIA Bach; Caller Number: H , M Antonio Lanier. During a pre-visit planning chart review, I noted the following documentation in the medical record: Current Problem List: Alcohol abuse, uncomplicated. 11/03/2022 Office Visit Note: HPI- Pt reports her sobriety is under control. 50 days sober. Currently not drinking. Pt reports she started drinking heavily about 16 mo ago when her mother . Pt is currently using Naltrexone. 06/09/2023 [facility] ED Note: HPI- The patient states that she has a history of drug abuse and alcohol abuse. She is currently on Vivitrol. She has been sober for 70 days today. She adamantly denies any suicidal or homicidal ideation. Addendum to prior dictation from 06/09/2023, patient ER visit. In error it was dictated the patient had a history of drug and alcohol abuse. The patient DOES NOT have a history of drug abuse. This was an error. 09/16/2024 [facility] Records (page 11): Office Visit dated 06/16/2024- HPI- Pt. is seeing Darrell for . Pt. is an alcoholic and wants to get things taken care of before she goes into detox. 09/30/2024 Office Visit Note: HPI- She reports she has been taking acetaminophen and ibuprofen OTC for the pain but it is not touching it so she has went back to drinking alcohol 3- 24 ounces cans of something similar to [place] each day for the past 7 days. She states she just can not take the pain and all the providers she has been too have come up with no reason she is having generalized pain. Based on your medical judgment, can you please clarify which of the following condition is present? I can update the Chronic Problem List with your response if you would like. -Alcohol abuse, uncomplicated: no change -Alcoholism in recovery -Alcoholism in remission -History of alcoholism -Other (please specify): In responding to this request, please exercise your independent professional judgment. The fact that a question is asked does not imply that any particular answer is desired or expected. If you have any questions, please feel free to contact me at extension [phone]. Lina Chirinos LPN Clinical Strategic Planning Consultant [address] [address] Extension: [phone] [email or web address] From: KURT BALBUENA CNP To: Lina Chirinos Su; Sent: 10/14/2024 09:24:40 EST Subject: RE: Pre-Visit Planning Caller Name: SHAZIA CHOU; Caller Number: Jonathan , M Dx of alcohol abuse, uncomplicated added to the visit dx and chronic list- The following in in the patient's plan- Monitor for s/sx of alcohol dependence Recheck Vitamin B, folate, TIBC, Ferritin, Magnesium, phosphate, & zinc annually Encouraged to limit alcohol consumption to 4-6 ounces when she drinks Encouraged to continue with counseling f/u in 4-6 weeks Normal [facility] Ambulatory Visit Summaryon 0 09-30-2024 Ambulatory Visit Summary Ambulatory Visit Summary RUTH CHOUURSULA Bach :1990 Visit Date:09/30/2024 Ambulatory Visit Instructions Your Diagnosis Chronic pain syndrome Smoker BMI 31.0-31.9,adult Exogenous obesity Your Care Team Attending Physician - KURT BALBUENA CNP Primary Care Physician - KURT BALBUENA CNP This Is Your Medications List acetaminophen (Tylenol) duloxetine (Cymbalta) ferrous sulfate (ferrous sulfate 325 mg Tab) gabapentin (gabapentin 100 mg Cap) lamotrigine (lamotrigine 25 mg Tab) multivitamin with minerals (Multi-Day Plus Minerals) ondansetron (Zofran 8 mg Tab) trazodone Procedures Performed Biopsy, breast, with placement of breast localization device(s) (eg, clip, metallic pellet), when performed, and imaging of the biopsy specimen, when performed, percutaneous; first lesion, including ultrasound guidance (07/11/2024), Hysterectomy (12/05/2022), Endoscopic plantar fasciotomy (02/16/2020), Endoscopic plantar fasciotomy (06/02/2019), LEFT ELBOW ULNAR NERVE DECOMPRESSION (02/11/2019), x3, Foot, Gastric bypass operation, History of tubal ligation, Lumbar puncture to lower intracranial pressure. Discharge Vitals Temperature (Oral) 36.5 ???C Heart Rate (Peripheral) 90 Respiratory Rate 18 Blood Pressure 130/80 Height 170.0 cm Height 67 in Weight 89.7 kg Weight 197.754 lb BMI 31.04 What to do next Scheduled Follow-Up Appointments Thursday 9:00 AM EST With: KURT BALBUENA CNP Where: [address] [phone]- Medications What How Much When Why Instructions New gabapentin (gabapentin 100 mg Cap) 1 Capsules By Mouth 3 times a day Chronic pain syndrome Pickup at [facility]/pharmacy #[id number] Unchanged acetaminophen (Tylenol) 325 Milligram By Mouth Every 4 hours as needed for as needed for pain Unchanged duloxetine (Cymbalta) 60 Milligram By Mouth 2 times a day per dr chaparro Unchanged ferrous sulfate (ferrous sulfate 325 mg Tab) TAKE 1 TABLET BY MOUTH EVERY DAY FOR 30 DAYS Unchanged lamotrigine (lamotrigine 25 mg Tab) TAKE 3 TABLETS BY MOUTH EVERY DAY Unchanged multivitamin with minerals (Multi-Day Plus Minerals) By Mouth Every day Unchanged ondansetron (Zofran 8 mg Tab) 1 Tablets By Mouth 2 times a day Nausea Unchanged trazodone 100 Milligram By Mouth Once a day (at bedtime) Pharmacy Information [facility]/pharmacy #[id number]: [address] [place], [place] [phone] Allergies Abilify (suicidal) BuSpar (palpitations) Coconut Oil (Swelling, Itching) Problems Ongoing - Any problem that you are currently receiving treatment for. Alcohol abuse Bipolar disorder Borderline personality disorder Chronic pain syndrome Headache after spinal puncture History of bypass of stomach Hypertension Left breast mass Muscle weakness-general Overweight (BMI 25.0-29.9) Pancreatic mass Smoker Vitamin D deficiency Historical - Any problem that you are no longer receiving treatment for. Patient Survey You may receive a survey via text or e-mail asking about your office visit. Please share your experience with us by completing your survey. We appreciate your feedback and thank you for choosing us for your care. Normal [facility] Family Medicine Office/Clini c Noteon 09-30-2024 Family Medicine Office/Clinic Note Family Medicine Office/Clinic Note HPI Staff Shazia is a 33 year old female presenting with pain all over Pain characteristics: Pain location: joints, back, legs, arms Intensity:6/10 Onset: started a few weeks ago just been getting worse Medication used: Tylenol... Ibuprofen not helping at all Between acky and sharp pain off and on all day History of Present Illness Patient presents today with her for chronic pain syndrome. She reports she has had generalized pain since July 2024. She reports the weakness started about 7 weeks ago and has become progressively worse. She reports she went to her previous pcp in July, to the [facility] ED on 09/05/2024 and again on 09/11/2024. She was seen by a provider at [facility] on 09/05/2024 and additional laboratory testing was completed. She is awaiting an MRI ordered by neurology to be completed on Thursday. She reports she has been taking acetaminophen and ibuprofen OTC for the pain but it is not touching it so she has went back to drinking alcohol 3- 24 ounces cans of something similar to [place] each day for the past 7 days. She states she just can not take the pain and all the providers she has been too have come up with no reason she is having generalized pain. Review of Systems PHQ Score Initial Depression Screen Score: 0 SCORE Physical Exam Vitals & Measurements T: 36.5 ???C(Oral) HR: 90(Peripheral) RR: 18 BP: 130/80 SpO2: 99% HT: 67 in HT: 170.0 cm WT: 89.7 kg WT: 197.754 lb BMI: 31.04 General: alert, no acute distress Cardiovascular: regular rate and rhythm, normal peripheral perfusion Respiratory: Lungs CTA, respirations non labored Extremities: no deformity, no trauma Neurological: oriented x 4, LOC appropriate for age motor strength equal & normal bilaterally, sensation equal & normal bilaterally, speech normal Assessment/Plan 1. Chronic pain syndrome (G89.4: Chronic pain syndrome) Reviewed notes and laboratory results from [facility] Awaiting results from the [facility] & [facility] Awaiting consult information form [facility] MRI scheduled for Thursday f/u in 2 weeks Ordered: gabapentin, 100 mg = 1 cap(s), Oral, TID, # 90 cap(s), Refills(s) 0, Pharmacy: [facility]/pharmacy #[id number], 170, cm, 09/30/24 9:53:00 EST, Height/Length Dosing, 89.7, kg, 09/30/24 9:53:00 EST, Weight Dosing 2. Smoker (F17.200: Nicotine dependence, unspecified, uncomplicated) We strongly recommend to quit tobacco use. Cigarette smoking harms nearly every organ of the body, causes many diseases, and reduces the health of smokers in general. Quitting smoking lowers your risk for smoking-related diseases and can add years to your life. We encourage you to visit www.smokefree.gov access to helpful resources including free telephone support. If you decide on prescription treatment to help you quit, we would be happy to provide these. 3. BMI 31.0-31.9,adult (Z68.31: Body mass index [BMI] 31.0-31.9, adult) The standard range for ages 18 and older is >=18.5 and < 25 kg/m2. Your BMI today was above this range, this falls in the overweight to obese category and there are medical benefits to weight loss. We can offer counselling, referral, and/or medical support in addressing this problem. Your BMI and weight management will be followed at subsequent visits. 4. Exogenous obesity (E66.09: Other obesity due to excess calories) The standard range for ages 18 and older is >=18.5 and < 25 kg/m2. Your BMI today was above this range, this falls in the overweight to obese category and there are medical benefits to weight loss. We can offer counselling, referral, and/or medical support in addressing this problem. Your BMI and weight management will be followed at subsequent visits. Total time spent preparing the chart, conducting of the encounter with the patient and family and time spent documenting, reviewing, and ordering tests was 30 minutes. Follow-up No qualifying data available Patient Education Chronic Pain, Adult Problem List/Past Medical History Ongoing Alcohol abuse Bipolar disorder Borderline personality disorder Chronic pain syndrome Headache after spinal puncture History of bypass of stomach Hypertension Left breast mass Muscle weakness-general Overweight (BMI 25.0-29.9) Pancreatic mass Smoker Vitamin D deficiency Historical Procedure/Surgical History Biopsy, breast, with placement of breast localization device(s) (eg, clip, metallic pellet), when performed, and imaging of the biopsy specimen, when performed, percutaneous; first lesion, including ultrasound guidance (07/11/2024), Hysterectomy (12/05/2022), Endoscopic plantar fasciotomy (02/16/2020), Endoscopic plantar fasciotomy (06/02/2019), LEFT ELBOW ULNAR NERVE DECOMPRESSION (02/11/2019), x3, Foot, Gastric bypass operation, History of tubal ligation, Lumbar puncture to lower intracranial pressure. Medications Cymbalta, 60 mg, Oral, BID ferrous sulfate 325 mg Tab gabapen (more content not included)... Normal [facility] Comment on above: Result Comment: Elec tronically Signed By: KURT BALBUENA CNP\.br\Date and Time Signed: 09/30/24 10:29 EST Vit Aon 09-29-2024 Retinol [Mass/Vol] 68.4 microgram/dL High 18.9-57.3 [facility] Comment on above: Result Comment: Refe rence intervals for vitamin A determined from [facility] internal studies. Individuals with vitamin A less than 20 ug/dL are considered vitamin A deficient and those with serum concentrations less than 10 ug/dL are considered severely deficient. This test was developed and its performance characteristics determined by [facility]. It has not been cleared or approved by the Food and Drug Administration. Performed at: [facility] [id number] MD Shorty Rodríguez Performed By: #### 1 [id number] ####[facility] [address] [place] [address] EMG 2 Extremitieson 09-27-19 25 Normal EMG of the ft upper and lower extremity [facility] Family Medicine Office/Clini c Noteon 09-27-2024 Family Medicine Office/Clinic Note Family Medicine Office/Clinic Note [facility] Staff Shazia is a 33 year old female presenting with paperwork for adoption She brought the papers with her History of Present Illness Patient presents today to have documents completed for the adoption of her 12 year old cousin. She reports the cousin has been living with her and her for the past four years. Patient report she has an appointment today at [facility] for an EMG. She is not sure what all this entails but she will make sure I receive the reports. She states she saw Dr. Larsen last week and is waiting for an MRI of her brain. Review of Systems PHQ Score Initial Depression Screen Score: 0 SCORE Physical Exam Vitals & Measurements T: 36.6 ???C(Oral) HR: 72(Peripheral) RR: 20 BP: 128/84 SpO2: 97% HT: 67 in HT: 170.0 cm WT: 91.1 kg WT: 200.841 lb BMI: 31.52 General: alert, no acute distress Cardiovascular: regular rate and rhythm, normal peripheral perfusion Respiratory: Lungs CTA, respirations non labored Extremities: no deformity, no trauma Neurological: oriented x 4, LOC appropriate for age speech normal Assessment/Plan 1. Encounter for adoption services (Z02.82: Encounter for adoption services) Paper work completed for adoption services f/u with neurology as scheduled 2. Smoker (F17.200: Nicotine dependence, unspecified, uncomplicated) We strongly recommend to quit tobacco use. Cigarette smoking harms nearly every organ of the body, causes many diseases, and reduces the health of smokers in general. Quitting smoking lowers your risk for smoking-related diseases and can add years to your life. We encourage you to visit www.smokefree.gov access to helpful resources including free telephone support. If you decide on prescription treatment to help you quit, we would be happy to provide these. 3. BMI 31.0-31.9,adult (Z68.31: Body mass index [BMI] 31.0-31.9, adult) The standard range for ages 18 and older is >=18.5 and < 25 kg/m2. Your BMI today was above this range, this falls in the overweight to obese category and there are medical benefits to weight loss. We can offer counselling, referral, and/or medical support in addressing this problem. Your BMI and weight management will be followed at subsequent visits. 4. Exogenous obesity (E66.09: Other obesity due to excess calories) The standard range for ages 18 and older is >=18.5 and < 25 kg/m2. Your BMI today was above this range, this falls in the overweight to obese category and there are medical benefits to weight loss. We can offer counselling, referral, and/or medical support in addressing this problem. Your BMI and weight management will be followed at subsequent visits. Follow-up No qualifying data available Problem List/Past Medical History Ongoing Alcohol abuse Bipolar disorder Borderline personality disorder Headache after spinal puncture History of bypass of stomach Hypertension Left breast mass Muscle weakness-general Overweight (BMI 25.0-29.9) Pancreatic mass Smoker Vitamin D deficiency Historical Procedure/Surgical History Biopsy, breast, with placement of breast localization device(s) (eg, clip, metallic pellet), when performed, and imaging of the biopsy specimen, when performed, percutaneous; first lesion, including ultrasound guidance (07/11/2024), Hysterectomy (12/05/2022), Endoscopic plantar fasciotomy (02/16/2020), Endoscopic plantar fasciotomy (06/02/2019), LEFT ELBOW ULNAR NERVE DECOMPRESSION (02/11/2019), x3, Foot, Gastric bypass operation, History of tubal ligation, Lumbar puncture to lower intracranial pressure. Medications Cymbalta, 60 mg, Oral, BID ferrous sulfate 325 mg Tab lamotrigine 25 mg Tab Multi-Day Plus Minerals, Oral, Daily trazodone, 100 mg, Oral, Once a day (at bedtime) Tylenol, 325 mg, Oral, q4hr, PRN Zofran 8 mg Tab, 8 mg= 1 tab(s), Oral, BID, 1 refills Allergies Abilify (suicidal) BuSpar (palpitations) Coconut Oil (Swelling, Itching) Social History Alcohol - Medium Risk, 07/01/2021 Beer. 3-5 times per week., 09/27/2024 Current, Liquor, 3-5 times per week, 01/29/2022 Substance Abuse - Denies Substance Abuse, 02/11/2019 Never., 09/15/2024 Tobacco - High Risk, 02/07/2020 10 or more cigarettes (1/2 pack or more)/day in last 30 days Tobacco Use:. Cigarettes, Started age 11.0 Years. Household tobacco concerns: No. Yes, 09/27/2024 Family History Cardiac arrest: Mother and Grandparent. Diabetes mellitus type 1: Mother and Grandparent. Hypertension: Mother and Grandparent. Primary malignant neoplasm of bladder: Father. Primary malignant neoplasm of female genital organ: Mother. Immunizations Vaccine Date Status Comments influenza virus vaccine, inactivated - Not Given Patient Refuses SARS-CoV-2 (COVID-19) mRNA BNT-162b2 vax 04/29/2021 Recorded SARS-CoV-2 (COVID-19) mRNA BNT-162b2 vax 04/08/2021 Recorded influenza virus vaccine, inactivated 07/09/2020 Recorded Normal [facility] Comment on above: Result Comment: Elec tronically Signed By: KURT BALBUENA CNP\.br\Date and Time Signed: 09/27/24 12:39 EST [place] 11-12 Nerveson Normal EMG of the le ft upper and lower extremity [facility] ALL MYOGLOBINon 09-21-2024 Myoglobin [Mass/Vol] 33 ng/mL 9 - 82 ng/mL NO [facility] ALL THYROID STIM HORMONEon 0 09-21-2024 TSH Qn 1.268 m[IU]/L [facility] No Panel Informationon 09-21 CL[facility]IS[facility] Ambulatory Visit Summaryon 0 09-20-2024 Ambulatory Visit Summary Ambulatory Visit Summary SHAZIA CHOU Isreal :1990 Visit Date:09/20/2024 Ambulatory Visit Instructions Your Diagnosis Vitamin deficiency syndrome Your Care Team Attending Physician - KURT BALBUENA CNP Primary Care Physician - KURT BALBUENA CNP This Is Your Medications List acetaminophen (Tylenol) duloxetine (Cymbalta) ferrous sulfate (ferrous sulfate 325 mg Tab) lamotrigine (lamotrigine 25 mg Tab) multivitamin with minerals (Multi-Day Plus Minerals) ondansetron (Zofran 8 mg Tab) trazodone Procedures Performed Biopsy, breast, with placement of breast localization device(s) (eg, clip, metallic pellet), when performed, and imaging of the biopsy specimen, when performed, percutaneous; first lesion, including ultrasound guidance (07/11/2024), Hysterectomy (12/05/2022), Endoscopic plantar fasciotomy (02/16/2020), Endoscopic plantar fasciotomy (06/02/2019), LEFT ELBOW ULNAR NERVE DECOMPRESSION (02/11/2019), x3, Foot, Gastric bypass operation, History of tubal ligation, Lumbar puncture to lower intracranial pressure. Discharge Vitals Temperature (Oral) 36.8 ???C Heart Rate (Peripheral) 78 Respiratory Rate 18 Blood Pressure 116/80 Height 170.0 cm Height 67 in Weight 85.7 kg Weight 188.936 lb BMI 29.65 Medications What How Much When Why Instructions Unchanged acetaminophen (Tylenol) 325 Milligram By Mouth Every 4 hours as needed for as needed for pain Unchanged duloxetine (Cymbalta) 60 Milligram By Mouth 2 times a day per dr chaparro Unchanged ferrous sulfate (ferrous sulfate 325 mg Tab) TAKE 1 TABLET BY MOUTH EVERY DAY FOR 30 DAYS Unchanged lamotrigine (lamotrigine 25 mg Tab) TAKE 3 TABLETS BY MOUTH EVERY DAY Unchanged multivitamin with minerals (Multi-Day Plus Minerals) By Mouth Every day Unchanged ondansetron (Zofran 8 mg Tab) 1 Tablets By Mouth 2 times a day Nausea Unchanged trazodone 100 Milligram By Mouth Once a day (at bedtime) Allergies Abilify (suicidal) BuSpar (palpitations) Coconut Oil (Swelling, Itching) Problems Ongoing - Any problem that you are currently receiving treatment for. Alcohol abuse Bipolar disorder Borderline personality disorder Headache after spinal puncture History of bypass of stomach Hypertension Left breast mass Overweight (BMI 25.0-29.9) Pancreatic mass Smoker Vitamin D deficiency Historical - Any problem that you are no longer receiving treatment for. Patient Survey You may receive a survey via text or e-mail asking about your office visit. Please share your experience with us by completing your survey. We appreciate your feedback and thank you for choosing us for your care. Normal [facility] CHEMISTRYOrdered By: SYSTEM SYSTEM on 09-20-2024 25-hydroxyvitamin D3 [Mass/Vol] 43.7 ng/mL Normal 30.0 - 100.0 ng/mL [facility] Cobalamin (Vitamin B12) [Mass/Vol] 626 pg/mL Normal 50 - 1500 pg/mL [facility] Ferritin [Mass/Vol] 10 ng/mL Low 11 - 307 ng/mL [facility] Folate [Mass/Vol] ng/mL Normal >=6.7ng/mL [facility] Iron [Mass/Vol] 124 ug/dL Normal 35 - 153 mcg/dL [facility] Iron binding capacity [Mass/Vol] 455 ug/dL High 250 - 400 mcg/dL [facility] Magnesium [Mass/Vol] 2.2 mg/dL Normal 1.3 - 2 .4 mg/dL [facility] Transferrin [Mass/Vol] 325 mg/dL Normal 200 - 370 mg/dL [facility] Family Medicine Office/Clini c Noteon 09-20-2024 Family Medicine Office/Clinic Note Family Medicine Office/Clinic Note [facility] Staff Shazia is a 33 year old female presenting with Neurology referral was put in 09/16/24 She was able to speak with a neurologist who recommended an ER trip. At her ER visit she was told her symptoms are possibly due to malabsorption. Pt reports she had gastric bypass surgery in December of 2020. She is requesting labs be ordered for a full Vitamin panel. ER visit [facility] - malnutrition Gave magnesium pill 1 pill History of Present Illness Patient presents today to discuss getting tested for vitamin deficiencies. She reports she had bariatric surgery in 2020 and was in the ED on 09/15/2023 after her visit to establish care at this office. She reports she called the neurologist this provider referred her to and they told her to go to the ED. She reports she went to [facility] and it was recommended that she be checked for vitamin deficiencies. She reports they did a bunch of laboratory testing, a CTA of her head which was negative. She states they also did an EKG and an echogram. She states her magnesium level was low and they gave her a dose of magnesium. She states the ED doctor told her she should be checked for vitamin deficiencies and this is why she came in today. She reports she has an appointment scheduled with neurology tomorrow. Review of Systems PHQ Score Initial Depression Screen Score: 0 SCORE Constitutional: fatigue, weakness Skin: no Jaundice, no rash, no lesions, nopetechiae Respiratory: no shortness of breath, no cough, no orthopnea, no wheezing Cardiovascular: no chest pain, no palpitations, no edema Musculoskeletal: no back pain, no trauma Neurologic: moderate weakness Psychiatric: no sleeping problems, no irritability, no mood swings/depression. Additional ROS info: Except as noted in the above Review of Systems and in the History of Present Illness all other systems have been reviewed and are negative or noncontributory. Physical Exam Vitals & Measurements T: 36.8 ???C(Oral) HR: 78(Peripheral) RR: 18 BP: 116/80 SpO2: 99% HT: 67 in HT: 170.0 cm WT: 85.7 kg WT: 188.936 lb BMI: 29.65 General: alert, no acute distress Cardiovascular: regular rate and rhythm, normal peripheral perfusion Respiratory: Lungs CTA, respirations non labored Extremities: no deformity, no trauma Neurological: oriented x 4, LOC appropriate for age, CN II-XII intact, motor strength equal & normal bilaterally, sensation equal & normal bilaterally, speech normal Assessment/Plan 1. Vitamin deficiency syndrome (E56.9: Vitamin deficiency, unspecified) Awaiting laboratory test results Encouraged to keep appointment as scheduled with neurology f/u TBD Ordered: Ferritin Folate Level Iron Level Lab Specimen Collect [id number] Magnesium Level TIBC Calculated Vitamin A Level Vitamin B12 Level Vitamin D 25 Hydroxy 2. Smoker (F17.200: Nicotine dependence, unspecified, uncomplicated) We strongly recommend to quit tobacco use. Cigarette smoking harms nearly every organ of the body, causes many diseases, and reduces the health of smokers in general. Quitting smoking lowers your risk for smoking-related diseases and can add years to your life. We encourage you to visit www.smokefree.gov access to helpful resources including free telephone support. If you decide on prescription treatment to help you quit, we would be happy to provide these. 3. BMI 29.0-29.9,adult (Z68.29: Body mass index [BMI] 29.0-29.9, adult) [...] management will be followed at subsequent visits. 4. Overweight (BMI 25.0-29.9) (E66.3: Overweight) The standard range for ages 18 and older is >=18.5 and < 25 kg/m2. Your BMI today was above this range, this falls in the overweight to obese category and there are medical benefits to weight loss. We can offer counselling, referral, and/or medical support in addressing this problem. Your BMI and weight management will be followed at subsequent visits. Follow-up No qualifying data available Problem List/Past Medical History Ongoing Alcohol abuse Bipolar disorder Borderline personality disorder Headache after spinal puncture History of bypass of stomach Hypertension Left breast mass Overweight (BMI 25.0-29.9) Pancreatic mass Smoker Vitamin D deficiency Historical Procedure/Surgical History Biopsy, breast, with placement of breast localization device(s) (eg, clip, metallic pellet), when performed, and imaging of the biopsy specimen, when performed, percutaneous; first lesion, including ultrasound guidance (07/11/2024), Hysterectomy (12/05/2022), Endoscopic plantar fasciotomy (02/16/2020), Endoscopic plantar fasciotomy (06/02/ (more content not included)... Normal [facility] Comment on above: Result Comment: Elec tronically Signed By: KURT BALBUENA CNP\Eusebiobr\Date and Time Signed: 09/20/24 11:15 EST Ferritinon 09-20-2024 Ferritin [Mass/Vol] 10 ng/mL Low 11-307 [facility] Comment on above: Performed By: #### [id number] #### [facility] [address] [place] [address] Folateon 09-20-2024 Folate [Mass/Vol] ng/mL Normal >=6.7 [facility] Comment on above: Performed By: #### [id number] #### [facility] [address] [place] [address] Ironon 09-20-2024 Iron [Mass/Vol] 124 microgram/dL Normal 35-153 [place] Comment on above: Performed By: #### 2 [id number] #### [facility] [address] [place] [address] Magnesiumon 09-20-2024 Magnesium [Mass/Vol] 2.2 mg/dL Normal 1.3-2.4 [facility] Comment on above: Performed By: #### 2 [id number] #### [facility] [address] [place] [address] TIBC Calculatedon 09-20-2024 Iron binding capacity [Mass/Vol] 455 microgram/dL High 250-400 [facility] Comment on above: Performed By: #### 1 [id number] #### [facility] [address] [place] [address] Transferrin [Mass/Vol] 325 mg/dL Normal 200-370 [facility] Comment on above: Performed By: #### 1 [id number] #### [facility] [address] [place] [address] Vit B12on 09-20-2024 Cobalamin (Vitamin B12) [Mass/Vol] 626 pg/mL Normal 50-1500 [facility] Comment on above: Performed By: #### 2 [id number] #### [facility] [address] [place] [address] Vitamin D 25 Hydroxyon 09-20 25-hydroxyvitamin D3 [Mass/Vol] 43.7 ng/mL Normal 30.0-100.0 [facility] Comment on above: Performed By: #### 5 [id number] #### [facility] [address] [place] [address] Alanine aminotransferase [En zymatic activity/volume] in Serum or PlasmaOrdered By: Sailaja Anderson on 09-15-2024 ALT [Catalytic activity/Vol] Alanine aminotransferase [Enzymatic activity/volume] in Serum or Plasma 7-52 [facility] Albumin [Mass/volume] in Ser um or Plasma by Bromocresol green (BCG) dye binding methoOrdered By: Sailaja Anderson on 09-15-2024 Albumin BCG dye [Mass/Vol] Albumin [Mass/volume] in Serum or Plasma by Bromocresol green (BCG) dye binding metho 3.5-5.7 [facility] Alkaline phosphatase [Enzyma tic activity/volume] in Serum or PlasmaOrdered By: Sailaja Anderson on 09-15-2024 ALP [Catalytic activity/Vol] Alkaline phosphatase [Enzymatic activity/volume] in Serum or Plasma 34-104 [facility] Amphetamine Screen Ql (U)Ord ered By: Sailaja Anderson on 09-15-2024 Amphetamines Ql (U) Amphetamines screen Negativ e [facility] Appearance of UrineOrdered B y: Sailaja Anderson on 09-15-2024 Appearance (U) Urine appearance [facility] Aspartate aminotransferase [ Enzymatic activity/volume] in Serum or PlasmaOrdered By: Sailaja Anderson on 09-15-2024 AST [Catalytic activity/Vol] Aspartate aminotransferase [Enzymatic activity/volume] in Serum or Plasma 13-39 [facility] Bacteria [Presence] in Urine by AutomatedOrdered By: Sailaja Anderson on 09-15-2024 Bacteria Auto Ql (U) Bacteria [Presence] in Urine by Automated None Seen [facility] Barbiturates [Presence] in U rine by Screen methodOrdered By: Sailaja Anderson on 09-15-2024 Barbiturates Screen Ql (U) Barbiturates [Presence] in Urine by Screen method Negative [facility] Basophils Auto (Bld) [#/Vol] Ordered By: Sailaja Anderson on 09-15-2024 Basophils (Bld) [#/Vol] Automated basophil count 0.0-0.2 [facility] Basophils/100 WBC Auto (Bld) Ordered By: Sailaja Anderson on 09-15-2024 Basophils/100 WBC (Bld) Automated basophil % . [facility] Benzodiazepines Screen Ql (U )Ordered By: Sailaja Anderson on 09-15-2024 Benzodiazepines Ql (U) Benzodiazepines [Presence] in Urine by Screen method Negative [facility] Benzoylecgonine [Presence] i n Urine by Screen methodOrdered By: Sailaja Anderson on 09-15-2024 Benzoylecgonine Screen Ql (U) Benzoylecgonine [Presence] in Urine by Screen method Negative [facility] Bilirubin Test strip Ql (U)O rdered By: Sailaja Anderson on 09-15-2024 Bilirubin Ql (U) Bilirubin.total [Presence] in Urine by Test strip Negative [facility] Bilirubin.total [Mass/volume ] in Serum or PlasmaOrdered By: Sailaja Anderson on 09-15-2024 Bilirubin [Mass/Vol] Bilirubin.total [Mass/volume] in Serum or Plasma 0.3-1.[address] [facility] [address] angio headon 09-15-2024 CT angio head [place] [address] CT Scan Report Signed Patient: Shazia Chou MR#: [id number] : 1990 Acct:[id number] Age/Sex: 33 / F ADM Date: 09/15/24 Loc: ER Room: Type: [facility] ER Attending Dr: Copies to: Sailaja Anderson APRN Ordering Provider: Sailaja Anderson APRN Date of Service: 09/15/24 CT/CT angio head: weakness ([id number]) CT/CT angio neck: weakness ([id number]) CT/CT head/brain wo con: weakness CT head/brain wo con, CT angio neck, CT angio head 09/15/2024 3:41 PM SIGNS AND SYMPTOMS: Muscle fatigue, weakness, imbalance, history of pseudotumor CONTRAST: 80 mL of intravenous Isovue-370 TECHNIQUE: Multi-detector CT angiography axial slices of the head were obtained before and during intravenous administration of IV contrast material. Sagittal, coronal, and 3-D reconstructions were performed and viewed on a separate workstation. CT was performed with one or more of the following dose reduction techniques: Automated exposure control, adjustment of the mA and/or kV according to patient size, or use of iterative reconstruction technique. Stenoses were measured using the NASCET criteria. COMPARISON: None. FINDINGS: Noncontrast head CT: There is no shift of the midline structures, acute intracranial bleeding, mass effects, or evidence of acute ischemia. The ventricular system is normal in size. The brainstem and the cerebellum are unremarkable. The infratemporal soft tissues and the visualized paranasal sinuses show no abnormality. There is flattening of the pituitary within the sella consistent with the history of pseudotumor cerebri. There is tortuosity of the optic nerves with prominence of the optic nerve sheath complex consistent with a history of pseudotumor measuring 1. The osseous structures in the skull base and the calvarium show no acute abnormality. CTA HEAD: The superior cerebellar arteries, posterior inferior cerebellar arteries, and the basilar artery are within normal limits. The posterior cerebral arteries are unremarkable. The intracranial segments of the internal carotid arteries are within normal limits. There are normal anterior and middle cerebral arteries. Anterior communicating artery is patent. Posterior communicating arteries are present. There is flattening of the posterior and lateral aspects of the transverse sinuses suggesting pseudotumor cerebri. No bony abnormalities are appreciated. CTA NECK: There is a normal three-vessel arch. The subclavian arteries are within normal limits. The vertebral arteries arise from the subclavian arteries and are normal in course and caliber up to the skull base. The common and internal carotid arteries are within normal limits. Visualized lung parenchyma is clear. No acute bony abnormalities are identified. The paraspinous soft tissues are within normal limits. CT/CT head/brain wo con IMPRESSION: No acute intracranial pathology. No evidence of focal stenosis, aneurysmal dilatation, dissection or occlusion. Findings are noted above that support the history of pseudotumor cerebri. Impression dictated by: Wiley Shetty M.D.09/15/2024 3:56 PM Dictation Location: [place] [address] Transcribed By: MARKY 09/15/24 1556 Dictated By: Wiley Shetty II, MD 09/15/24 1546 Signed By: 09/15/24 1556 Normal [facility] Calcium [Mass/volume] in Ser um or PlasmaOrdered By: Sailaja Anderson on 09-15-2024 Calcium [Mass/Vol] Calcium [Mass/volume ] in Serum or Plasma 8.6-10.3 [facility] Cannabinoids [Presence] in U rine by Screen methodOrdered By: Sailaja Anderson on 09-15-2024 Cannabinoids Screen Ql (U) Cannabinoids [Presence] in Urine by Screen method Negative [facility] Comment on above: These are unconfirme d results and should not be used for legal purposes. Drug Cut-Off Concentration: AMPH 1000 ng/mL OPAL 200 ng/mL AURELIANO 200 ng/mL COCM 300 ng/mL OP 300 ng/mL PCP 25 ng/mL THC 20 ng/mL Carbon dioxide, total [Moles /volume] in Serum or PlasmaOrdered By: Sailaja Anderson on 09-15-2024 CO2 [Moles/Vol] Carbon dioxide, tota l [Moles/volume] in Serum or Plasma 21.0-31.0 [facility] Chloride [Moles/volume] in S tushar or PlasmaOrdered By: Sailaja Anderson on 09-15-2024 Chloride [Moles/Vol] Chloride [Moles/vol ume] in Serum or Plasma 98-107 [facility] Color Auto (U)Ordered By: Scott Anderson on 09-15-2024 Color (U) Color of Urine by Auto Yellow Fi [facility] Complete Blood Count Auto Di ffon 09-15-2024 Basophils (Bld) [#/Vol] 0.1 10*3/uL Normal 0.0-0.2 [facility] Comment on above: Result Comment: PERF ORMED BY: [facility] [address] [place] [id number] PATHOLOGIST [employer] CARLOS KNAPP M.D. Performed By: #### C BC ####[place] [id number] [facility] Basophils/100 WBC (Bld) 0.7 % Normal . [facility] Comment on above: Performed By: #### C BC ####[place] [id number] [facility] Eosinophils (Bld) [#/Vol] 0.2 10*3/uL Normal 0.0-0.45 [facility] Comment on above: Performed By: #### C BC ####[address] Eosinophils/100 WBC (Bld) 2.4 % Normal . [facility] Comment on above: Performed By: #### C BC ####[place] [id number] [facility] Erythrocyte distribution width (RBC) [Ratio] 16.9 % High 11.9-15.3 [facility] Comment on above: Performed By: #### C BC ####[place] [id number] [facility] Hematocrit (Bld) [Volume fraction] 35.6 % Normal 34.0-46.4 [facility] Comment on above: Performed By: #### C BC ####[place] [id number] [facility] Hemoglobin (Bld) [Mass/Vol] 12.1 g/dL Normal 11.8-15.4 [facility] Comment on above: Performed By: #### C BC ####[place] [id number] [facility] Lymphocytes (Bld) [#/Vol] 2.3 10*3/uL Normal 1.00-4.8 [facility] Comment on above: Performed By: #### C BC ####[place] [id number] [facility] Lymphocytes/100 WBC (Bld) 26.3 % Normal . [facility] Comment on above: Performed By: #### C BC ####[place] [id number] [facility] MCH (RBC) [Entitic mass] 32.5 pg Normal 24.7-34.3 [facility] Comment on above: Performed By: #### C BC ####[place] [id number] [facility] MCV (RBC) [Entitic vol] 96.0 fL Normal 80-100 [facility] Comment on above: Performed By: #### C BC ####[address] Mean Corpuscular HGB Conc 33.9 g/dL Normal 32.0-35.0 [facility] Comment on above: Performed By: #### C BC ####[address] Monocytes (Bld) [#/Vol] 0.7 10*3/uL Normal 0.0-0.8 [facility] Comment on above: Performed By: #### C BC ####[place] [id number] [facility] Monocytes/100 WBC (Bld) 17.55 % Normal 0.00-20.00 [facility] Comment on above: Performed By: #### C BC ####[place] [id number] [facility] Monocytes/100 WBC (Bld) 7.8 % Normal . [facility] Comment on above: Performed By: #### C BC ####[place] [id number] [facility] Neutrophils (Bld) [#/Vol] 5.4 10*3/uL Normal 1.8-7.7 [facility] Comment on above: Performed By: #### C BC ####[place] [id number] [place] Neutrophils/100 WBC (Bld) 62.8 % Normal . [facility] Comment on above: Performed By: #### C BC ####[address] NRBC% 0.1 /100{WBC} Normal 0-0.5 [facility] Comment on above: Performed By: #### C BC ####[address] Platelet mean volume (Bld) [Entitic vol] 9.2 fL Normal 6.3-10.7 [facility] Comment on above: Performed By: #### C BC ####[address] Platelets (Bld) [#/Vol] 292 10*3/uL Normal 150-450 [facility] Comment on above: Performed By: #### C BC ####[address] RBC (Bld) [#/Vol] 3.71 10*6/uL Normal 3.60-5.00 [facility] Comment on above: Performed By: #### C BC ####[address] WBC (Bld) [#/Vol] 8.6 10*3/uL Normal 3.8-11.6 [facility] Comment on above: Performed By: #### C BC ####[address] Comprehensive Metabolic Pane jak 09-15-2024 Albumin [Mass/Vol] 3.8 g/dL Normal 3.5-5.7 [facility] Comment on above: Performed By: #### M YOG, SYMONE SERUM, SPE, RPR W RFX, SYMONE,URINE, UPE RAND, ALDOLASE #### [facility] , #### CK, CMP, CRP, T4F, TSH3, PP, CBC, ESR, ADDONUAPLUS #### [address] Albumin/Globulin [Mass ratio] 1.5 {ratio} Normal [facility] Comment on above: Performed By: #### M YOG, SYMONE SERUM, SPE, RPR W RFX, SYMONE,URINE, UPE RAND, ALDOLASE #### [facility] , #### CK, CMP, CRP, T4F, TSH3, PP, CBC, ESR, ADDONUAPLUS #### [address] ALP [Catalytic activity/Vol] 53 U/L Normal 34-104 [facility] Comment on above: Performed By: #### M YOG, SYMONE SERUM, SPE, RPR W RFX, SYMONE,URINE, UPE RAND, ALDOLASE #### [facility] , #### CK, CMP, CRP, T4F, TSH3, PP, CBC, ESR, ADDONUAPLUS #### [address] ALT [Catalytic activity/Vol] 15 U/L Normal 7-52 [facility] Comment on above: Performed By: #### M YOG, SYMONE SERUM, SPE, RPR W RFX, SYMONE,URINE, UPE RAND, ALDOLASE #### [facility] , #### CK, CMP, CRP, T4F, TSH3, PP, CBC, ESR, ADDONUAPLUS #### [address] Anion gap [Moles/Vol] 8.3 mmol/L Normal 6.0-15.0 [facility] Comment on above: Performed By: #### M YOG, SYMONE SERUM, SPE, RPR W RFX, SYMONE,URINE, UPE RAND, ALDOLASE #### [facility] , #### CK, CMP, CRP, T4F, TSH3, PP, CBC, ESR, ADDONUAPLUS #### [address] AST [Catalytic activity/Vol] 16 U/L Normal 13-39 [facility] Comment on above: Performed By: #### M YOG, SYMONE SERUM, SPE, RPR W RFX, SYMONE,URINE, UPE RAND, ALDOLASE #### [facility] , #### CK, CMP, CRP, T4F, TSH3, PP, CBC, ESR, ADDONUAPLUS #### [facility] [address] Bilirubin [Mass/Vol] 0.3 mg/dL Normal 0.3-1.0 [facility] Comment on above: Performed By: #### M YOG, SYMONE SERUM, SPE, RPR W RFX, SYMONE,URINE, UPE RAND, ALDOLASE #### [facility] , #### CK, CMP, CRP, T4F, TSH3, PP, CBC, ESR, ADDONUAPLUS #### [address] Calcium [Mass/Vol] 9.0 mg/dL Normal 8.6-10.3 [facility] Comment on above: Performed By: #### M YOG, SYMONE SERUM, SPE, RPR W RFX, SYMONE,URINE, UPE RAND, ALDOLASE #### [facility] , #### CK, CMP, CRP, T4F, TSH3, PP, CBC, ESR, ADDONUAPLUS #### [place] [address] [place] Chloride [Moles/Vol] 107 mmol/L Normal 98-107 [facility] Comment on above: Performed By: #### M YOG, SYMONE SERUM, SPE, RPR W RFX, SYMONE,URINE, UPE RAND, ALDOLASE #### [facility] , #### CK, CMP, CRP, T4F, TSH3, PP, CBC, ESR, ADDONUAPLUS #### [place] [id number] [facility] CO2 [Moles/Vol] 26.2 mmol/L Normal 21.0-31.0 [facility] Comment on above: Performed By: #### M YOG, SYMONE SERUM, SPE, RPR W RFX, SYMONE,URINE, UPE RAND, ALDOLASE #### [facility] , #### CK, CMP, CRP, T4F, TSH3, PP, CBC, ESR, ADDONUAPLUS #### [address] Creatinine [Mass/Vol] 0.57 mg/dL Low 0.60-1.20 [facility] Comment on above: Performed By: #### M YOG, SYMONE SERUM, SPE, RPR W RFX, SYMONE,URINE, UPE RAND, ALDOLASE #### [facility] , #### CK, CMP, CRP, T4F, TSH3, PP, CBC, ESR, ADDONUAPLUS #### [address] Creatinine Clr Calc Pharmacy 157.80 Normal [facility] Comment on above: Performed By: #### M YOG, SYMONE SERUM, SPE, RPR W RFX, SYMONE,URINE, UPE RAND, ALDOLASE #### [facility] , #### CK, CMP, CRP, T4F, TSH3, PP, CBC, ESR, ADDONUAPLUS #### [address] GFR/1.73 sq M.predicted MDRD (S/P/Bld) [Vol rate/Area] mL/min/{1.73_m2} Normal [facility] Comment on above: Performed By: #### M YOG, SYMONE SERUM, SPE, RPR W RFX, SYMONE,URINE, UPE RAND, ALDOLASE #### [facility] , #### CK, CMP, CRP, T4F, TSH3, PP, CBC, ESR, ADDONUAPLUS #### [address] Globulin (S) [Mass/Vol] 2.6 g/dL Normal [facility] Comment on above: Performed By: #### M YOG, SYMONE SERUM, SPE, RPR W RFX, SYMONE,URINE, UPE RAND, ALDOLASE #### [facility] , #### CK, CMP, CRP, T4F, TSH3, PP, CBC, ESR, ADDONUAPLUS #### [address] Glucose [Mass/Vol] 87 mg/dL Normal 70-100 [facility] Comment on above: Result Comment: [facility] Glucose Reference Range is dependent on time and content of last meal. Glucose of more than 200 mg/dL in a nonstressed, ambulatory subject supports the diagnosis of Diabetes Mellitus. ADA recommended reference range Performed By: #### M YOG, SYMONE SERUM, SPE, RPR W RFX, SYMONE,URINE, UPE RAND, ALDOLASE #### [facility] , #### CK, CMP, CRP, T4F, TSH3, PP, CBC, ESR, ADDONUAPLUS #### [place] [address] [place] Potassium [Moles/Vol] 3.5 mmol/L Normal 3.5-5.1 [facility] Comment on above: Performed By: #### M YOG, SYMONE SERUM, SPE, RPR W RFX, SYMONE,URINE, UPE RAND, ALDOLASE #### [facility] , #### CK, CMP, CRP, T4F, TSH3, PP, CBC, ESR, ADDONUAPLUS #### [address] Protein [Mass/Vol] 6.4 g/dL Normal 6.4-8.9 [facility] Comment on above: Performed By: #### M YOG, SYMONE SERUM, SPE, RPR W RFX, SYMONE,URINE, UPE RAND, ALDOLASE #### [facility] , #### CK, CMP, CRP, T4F, TSH3, PP, CBC, ESR, ADDONUAPLUS #### [address] [address] [place] Sodium [Moles/Vol] 138 mmol/L Normal 136-145 [facility] Comment on above: Performed By: #### M YOG, SYMONE SERUM, SPE, RPR W RFX, SYMONE,URINE, UPE RAND, ALDOLASE #### [facility] , #### CK, CMP, CRP, T4F, TSH3, PP, CBC, ESR, ADDONUAPLUS #### [facility] [address] Urea nitrogen [Mass/Vol] 6 mg/dL Low 7-25 [facility] Comment on above: Performed By: #### M YOG, SYMONE SERUM, SPE, RPR W RFX, SYMONE,URINE, UPE RAND, ALDOLASE #### [facility] , #### CK, CMP, CRP, T4F, TSH3, PP, CBC, ESR, ADDONUAPLUS #### [facility] [address] Creatinine [Mass/volume] in Serum or PlasmaOrdered By: Sailaja Anderson on 09-15-2024 Creatinine [Mass/Vol] Creatinine [Mass/volume] in Serum or Plasma Low 0.60-1.20 [facility] Dipstick and Microscopicon 0 09-15-2024 Appearance (U) Clear Normal Clear [facility] Comment on above: Order Comment: Name Collection Type:: Clean-Voided Midstream Performed By: #### U RDS, ADDONUAPLUS, UHCG ####[facility] [place] [id number] [place] Bacteria,Urine None Seen Normal None Seen [facility] Comment on above: Order Comment: Name Collection Type:: Clean-Voided Midstream Performed By: #### U RDS, ADDONUAPLUS, UHCG ####[facility] [place] [id number] [place] Bilirubin,Urine Negative Normal Negative [facility] Comment on above: Order Comment: Name Collection Type:: Clean-Voided Midstream Performed By: #### U RDS, ADDONUAPLUS, UHCG ####[facility] [place] [address] [place] Color (U) Yellow Normal Yellow [facility] Comment on above: Order Comment: Name Collection Type:: Clean-Voided Midstream Performed By: #### U RDS, ADDONUAPLUS, UHCG ####[place] [address] [place] [address] [place] Glucose Ql (U) Normal Normal Normal [facility] Comment on above: Order Comment: Name Collection Type:: Clean-Voided Midstream Performed By: #### U RDS, ADDONUAPLUS, UHCG ####[address] [address] [place] Hyaline Casts,Urine None Normal 0-8 [facility] Comment on above: Order Comment: Name Collection Type:: Clean-Voided Midstream Performed By: #### U RDS, ADDONUAPLUS, UHCG ####[address] [address] [facility] Ketones Ql (U) 1+ High Negative [facility] Comment on above: Order Comment: Name Collection Type:: Clean-Voided Midstream Performed By: #### U RDS, ADDONUAPLUS, UHCG ####[address] [address] [facility] Leukocyte esterase Test strip Ql (U) Negative Normal Negative [facility] Comment on above: Order Comment: Name Collection Type:: Clean-Voided Midstream Performed By: #### U RDS, ADDONUAPLUS, UHCG ####[address] [place] [address] [place] Mucus,Urine Rare Normal [facility] Comment on above: Order Comment: Name Collection Type:: Clean-Voided Midstream Performed By: #### U RDS, ADDONUAPLUS, UHCG ####[address] [address] [place] Nitrite,Urine Negative Normal Negative [facility] Comment on above: Order Comment: Name Collection Type:: Clean-Voided Midstream Performed By: #### U RDS, ADDONUAPLUS, UHCG ####[address] [address] [facility] Occult Blood,Urine Negative Normal Negative [facility] Comment on above: Order Comment: Name Collection Type:: Clean-Voided Midstream Performed By: #### U RDS, ADDONUAPLUS, UHCG ####[address] [address] [facility] pH (U) 7.0 [pH] Normal 5.0-9.0 [facility] Comment on above: Order Comment: Name Collection Type:: Clean-Voided Midstream Performed By: #### U RDS, ADDONUAPLUS, UHCG ####[address] [address] [facility] Protein,Urine Trace High Negative [facility] Comment on above: Order Comment: Name Collection Type:: Clean-Voided Midstream Performed By: #### U RDS, ADDONUAPLUS, UHCG ####[address] [address] [facility] RBC,Urine 1 [HPF] Normal 0-4 [facility] Comment on above: Order Comment: Name Collection Type:: Clean-Voided Midstream Performed By: #### U RDS, ADDONUAPLUS, UHCG ####[address] [address] [facility] Specificy [place],Urine 1.025 Normal 1.001-1.030 [facility] Comment on above: Order Comment: Name Collection Type:: Clean-Voided Midstream Performed By: #### U RDS, ADDONUAPLUS, UHCG ####[address] [address] [facility] Squamous Epithelial Cell,Urine 3 [HPF] High 0-2 [facility] Comment on above: Order Comment: Name Collection Type:: Clean-Voided Midstream Performed By: #### U RDS, ADDONUAPLUS, UHCG ####[address] [address] [facility] Urobilinogen,Urine 2 mg/dL High Normal [facility] Comment on above: Order Comment: Name Collection Type:: Clean-Voided Midstream Performed By: #### U RDS, ADDONUAPLUS, UHCG ####[place] [address] [place] [address] [facility] WBC,Urine 1 [HPF] Normal 0-4 [facility] Comment on above: Order Comment: Name Collection Type:: Clean-Voided Midstream Performed By: #### U RDS, ADDONUAPLUS, UHCG ####[place] [phone] [facility] Drug Screen,Urineon 09-15-19 Amphetamine Screen,Urine Negative Normal Negative [facility] Comment on above: Performed By: #### U RDS, ADDONUAPLUS, CG ####[address] Barbiturate Screen,Urine Negative Normal Negative [facility] Comment on above: Performed By: #### U RDS, ADDONUAPLUS, CG ####[place] [phone] [facility] Benzodiazepines Screen,Urine Negative Normal Negative [facility] Comment on above: Performed By: #### U RDS, ADDONUAPLUS, CG ####[place] [phone] [facility] Cannabinoid Screen,Urine Negative Normal Negative [facility] Comment on above: Result Comment: Thes e are unconfirmed results and should not be used for legal purposes. Drug Cut-Off Concentration: AMPH 1000 ng/mL OPAL 200 ng/mL AURELIANO 200 ng/mL COCM 300 ng/mL OP 300 ng/mL PCP 25 ng/mL THC 20 ng/mL PERFORMED BY: [facility] [address] [place] [id number] PATHOLOGIST [employer] TE[employer] CARLOS KNAPP M.D. Performed By: #### U RDS, ADDONUAPLUS, UHCG ####[place] [phone] [facility] Cocaine Screen,Urine Negative Normal Negative [facility] Comment on above: Performed By: #### U RDS, ADDONUAPLUS, [facility] ####[facility] [place] [id number] [facility] Opiate Screen,Urine Negative Normal Negative [facility] Comment on above: Performed By: #### U RDS, ADDONUAPLUS, CG ####[facility] [place] [address] [facility] Phencyclidine Screen,Urine Negative Normal Negative [facility] Comment on above: Performed By: #### U RDS, ADDONUAPLUS, [facility] ####[facility] [place] [address] [facility] ECG 12 lead ECGon 09-15-2024 ECG 12 lead ECG [place] [address] [place] [address] [place] [address] Electrocardiograph Report Signed Patient: Shazia Chou MR#: [id number] : 1990 Acct:[id number] Age/Sex: 33 / F ADM Date: 09/15/24 Loc: ER Room: Type: [facility] ER Attending Dr: Ordering Provider: Sailaja Anderson APRN Date of Service: 09/15/2411/08/1328 ECG/ECG 12 lead ECG: chest pain Copies to: Test Reason : Blood Pressure : */* mmHG Vent. Rate : 73 BPM Atrial Rate : 73 BPM P-R Int : 134 ms QRS Dur : 82 ms QT Int : 394 ms P-R-T Axes : 40 68 56 degrees QTcB Int : 434 ms Normal sinus rhythm Normal ECG When compared with ECG of 31-Dec-2023 11:17, Previous ECG has undetermined rhythm, needs review Confirmed by Agus Hooper DO ([id number]) on 09/15/2024 3:29:15 PM Referred By: Electronically Signed By: Agus Hooper DO Transcribed By: MUS Signed By Agus Hooper DO 5 1529 Normal [facility] Eosinophils Auto (Bld) [#/Vo l]Ordered By: Sailaja Anderson on 09-15-2024 Eosinophils (Bld) [#/Vol] Automated eosinophil count 0.0-0.45 [facility] Eosinophils/100 WBC Auto (Bl d)Ordered By: Sailaja Anderson on 09-15-2024 Eosinophils/100 WBC (Bld) Automated eosinophil % . [facility] Epithelial cells.squamous [# /area] in Urine sediment by Automated countOrdered By: Sailaja Anderson on 09-15-2024 Epithelial cells.squamous Auto (Urine sed) [#/Area] Epithelial cells.squamous [#/area] in Urine sediment by Automated count High 0-2 [facility] Erythrocyte Sedimentation Ra don 09-15-2024 ESR (Bld) [Velocity] 7 mm/h Normal 0-19 [facility] Comment on above: Result Comment: PERF ORMED BY: [place] [address] PATHOLOGIST [employer] CARLOS KNAPP M.D. Performed By: #### M YOG, SYMONE SERUM, SPE, RPR W RFX, SYMONE,URINE, UPE RAND, ALDOLASE #### [facility] , #### CK, CMP, CRP, T4F, TSH3, PP, CBC, ESR, ADDONUAPLUS #### [facility] [address] Erythrocyte distribution wid th Auto (RBC) [Ratio]Ordered By: Sailaja Anderson on 09-15-2024 Erythrocyte distribution width (RBC) [Ratio] Erythrocyte distribution width [Ratio] by Automated count High 11.9-15.3 [facility] Erythrocyte sedimentation ra te by Photometric methodOrdered By: Sailaja Anderson on 09-15-2024 ESR Photometric method (Bld) [Velocity] Erythrocyte sedimentation rate by Photometric method 0-19 [facility] Erythrocytes [#/area] in Uri ne sediment by Automated countOrdered By: Sailaja Anderson on 09-15-2024 RBC Auto (Urine sed) [#/Area] Erythrocytes [#/area] in Urine sediment by Automated count 0-4 [facility] Ethanol [Mass/volume] in Ser um or PlasmaOrdered By: Sailaja Anderson on 09-15-2024 Ethanol [Mass/Vol] Ethanol [Mass/volume ] in Serum or Plasma [facility] Comment on above: Test not performed Ethyl Alcohol Profileon Ethanol [Mass/Vol] mg/dL Normal [facility] Comment on above: Performed By: #### M YOG, SYMONE SERUM, SPE, RPR W RFX, SYMONE,URINE, UPE RAND, ALDOLASE #### [facility] , #### CK, CMP, CRP, T4F, TSH3, PP, CBC, ESR, ADDONUAPLUS #### [facility] [address] Percent Ethanol Not performed Normal [facility] Comment on above: Result Comment: PERF ORMED BY: [place] [address] PATHOLOGIST [employer] TE[employer] CARLOS KNAPP M.D. Performed By: #### M YOG, SYMONE SERUM, SPE, RPR W RFX, SYMONE,URINE, UPE RAND, ALDOLASE #### [facility] , #### CK, CMP, CRP, T4F, TSH3, PP, CBC, ESR, ADDONUAPLUS #### [address] Family Medicine Office/Clini c Noteon 09-15-2024 Family Medicine Office/Clinic Note Family Medicine Office/Clinic Note Chief Complaint New Pt HPI Staff Pt is a new pt. Presenting today to establish care. Establish Care: History: Any previous diagnosis: Iron deficiency anemia History of seeing any specialist: general surgery for lump on breast & cardiology When was your last doctors visit: 07/2024 Last provider: Mia PERRY Any recent labs: done @ [facility] ER 09/05/24 Health Maintenance UTD: Colonoscopy: NA Mammogram: 12/09/23 [facility] Pelvic/Pap: 12/05 following hysterectomy, states she was told she no longer needs them Acute: Current issues/complaints: Iron deficiency anemia & fatigue. Leg & Arm weakness. Skin discoloration & hair falling off. PHQ9 23 Biggest concern is increased weakness. History of Present Illness 33 year old patient presents to establish care and to discuss generalized progressive weakness. She reports the weakness started about 5-6 weeks ago and has become progressively worse. She reports she went to her previous pcp in July, to the [facility] ED on 09/05/2024 and again on 09/11/2024. She reports she was at [facility] last week and they performed a bunch of laboratory testing that came back negative. She was seen at in [place] on 09/13/2024 for chest pain and this was negative. She states she is not sure what is causing this weakness and general malaise. Review of Systems PHQ Score Initial Depression Screen Score: 6 SCORE Detailed Depression Screen Score: 17 Total Depression Screen Score: 23 Constitutional: no fever, no chills, no sweats, no weakness Skin: no Jaundice, no rash, no lesions, nopetechiae ENMT: no ear pain, no sore throat, no congestion, no hoarseness Respiratory: no shortness of breath, no cough, no orthopnea, no wheezing Cardiovascular: no chest pain, no palpitations, no edema Gastrointestinal: no nausea, no vomiting, no diarrhea, no GI bleeding Genitourinary: no dysuria, no hematuria, no discharge, no pain Musculoskeletal: no back pain, no trauma; general weakness Neurologic: no headache, no dizziness, no numbness, no weakness Psychiatric: no sleeping problems, no irritability, no mood swings/depression. Heme/Lymph: no bleeding tendency, no bruising tendency, no petechiae, no swollen nodes Allergy/Immunologic: no seasonal allergies, no food allergies, no recurrent infections, no impaired immunity Additional ROS info: Except as noted in the above Review of Systems and in the History of Present Illness all other systems have been reviewed and are negative or noncontributory. Physical Exam Vitals & Measurements T: 36.9 ???C(Oral) HR: 79(Peripheral) RR: 18 BP: 124/80 SpO2: 98% HT: 67 in HT: 170 cm WT: 86.4 kg WT: 190.479 lb BMI: 29.9 General: alert, no acute distress Skin: warm, dry Head: no trauma, normocephalic Neck: Trachea midline, no adenopathy, no tenderness Eye: normal conjunctiva, sclera clear ENMT: TM's clear, oral mucosa moist, no pharyngeal erythema or exudate Cardiovascular: regular rate and rhythm, normal peripheral perfusion Respiratory: Lungs CTA, respirations non labored Gastrointestinal: soft, non distended, no tenderness, no guarding. Back: No tenderness, Normal ROM, Normal alignment. Extremities: no deformity, no trauma; Decreased ROM of the upper extremities Neurological: oriented x 4, LOC appropriate for age, CN II-XII intact, motor strength equal & normal bilaterally, sensation equal & normal bilaterally, speech normal; Positive romberg Psychiatric: cooperative, affect appropriate for age, normal judgement, normal psychiatric thoughts. Assessment/Plan 1. Generalized muscle ache (M79.10: Myalgia, unspecified site) Reviewed the discharge summary from [facility]- CMP, CRP, ESR, & CBC - WNL Reviewed the Echo from in [place] on the 13 of September- Normal results Awaiting additional records from providers f/u after consult with neurology Ordered: [facility] External Ambulatory Referral 2. Balance problem (R26.89: Other abnormalities of gait and mobility) Reviewed the discharge summary from [facility]- CMP, CRP, ESR, & CBC - WNL Reviewed the Echo from in [place] on the 13 of September- Normal results Awaiting additional records from providers f/u after consult with neurology Ordered: [facility] External Ambulatory Referral 3. Encounter to establish care (Z76.89: Persons encountering health services in other specified circumstances) Awaiting records from providers to review 4. Bipolar disorder (F31.9: Bipolar disorder, unspecified) Continue with Dr. Chaparro 5. Borderline personality disorder (F60.3: Borderline personality disorder) Continue with Dr. Chaparro 6. Adult BMI 29.0-29.9 kg/sq m (Z68.29: Body mass index [BMI] 29.0-29.9, adult) The standard range for ages 18 and older is >=18.5 and < 25 kg/m2. Your BMI today was above this range, this falls in the overweight to obese category and there are medical benefits to weight loss. We can offer counselling, referral, and/or medical support in addres (more content not included)... Normal [facility] Comment on above: Result Comment: Elec tronically Signed By: KURT BALBUENA CNP\.benito\Date and Time Signed: 09/15/24 14:31 EST Free T4 (Free Thyroxine)on 0 09-15-2024 Free T4 [Mass/Vol] 1.02 ng/dL Normal 0.61-1.12 [facility] Comment on above: Performed By: #### M YOG, SYMONE SERUM, SPE, RPR W RFX, SYMONE,URINE, UPE RAND, ALDOLASE #### [facility] , #### CK, CMP, CRP, T4F, TSH3, PP, CBC, ESR, ADDONUAPLUS #### [facility] [address] Globulin Calc (S) [Mass/Vol] Ordered By: Sailaja Anderson on 09-15-2024 Globulin (S) [Mass/Vol] Serum globulin measurement by calculation (mass/volume) [facility] Glucose [Mass/volume] in Ser um or PlasmaOrdered By: Sailaja Anderson on 09-15-2024 Glucose [Mass/Vol] Glucose [Mass/volume ] in Serum or Plasma 70-100 [facility] Comment on above: ADA recommended refe rence rangeRandom Glucose Reference Range is dependent on time and content of last meal. Glucose of more than 200 mg/dL in a nonstressed, ambulatory subject supports the diagnosis of Diabetes Mellitus. Glucose [Mass/volume] in Uri ne by Test stripOrdered By: Sailaja Anderson on 09-15-2024 Glucose Test strip (U) [Mass/Vol] Glucose [Mass/volume] in Urine by Test strip Normal [facility] HCG ( test) IA.rapi d Ql (U)Ordered By: Sailaja Anderson on 09-15-2024 HCG ( test) Ql (U) Urine human chorionic gonadotropin (hCG) detection by immunoassay [facility] HCG,Urineon 09-15-2024 Beta HCG ( test) Ql (U) Negative Normal [facility] Comment on above: Order Comment: Name Collection Type:: Clean-Voided Midstream Result Comment: PERF ORMED BY: [facility] [address] [place] [address] PATHOLOGIST [employer] TE[employer] CARLOS KNAPP M.D. Performed By: #### U RDS, ADDONUAPLUS, UHCG ####[facility] [id number] Hematocrit Auto (Bld) [Volum e fraction]Ordered By: Sailaja Anderson on 09-15-2024 Hematocrit (Bld) [Volume fraction] Hematocrit [Volume Fraction] of Blood by Automated count 34.0-46.4 [facility] Hemoglobin Test strip Ql (U) Ordered By: Sailaja Anderson on 09-15-2024 Hemoglobin Ql (U) Hemoglobin [Presence ] in Urine by Test strip Negative [facility] Hemoglobin [Mass/volume] in BloodOrdered By: Sailaja Anderson on 09-15-2024 Hemoglobin (Bld) [Mass/Vol] Hemoglobin [Mass/volume] in Blood 11.8-15.4 [facility] Hyaline casts [#/area] in Ur ine sediment by Automated countOrdered By: Sailaja Anderson on 09-15-2024 Hyaline casts Auto (Urine sed) [#/Area] Hyaline casts [#/area] in Urine sediment by Automated count 0-8 [facility] INR in Platelet poor plasma by Coagulation assayOrdered By: Sailaja Anderson on 09-15-2024 INR Coag (PPP) [Relative time] INR in Platelet poor plasma by Coagulation assay [facility] Comment on above: INR Therapeutic Rang [...] with mechanical heart valves: 3 - 4.5 Ketones Test strip Ql (U)Ord ered By: Sailaja Anderson on 09-15-2024 Ketones Ql (U) Ketones [Presence] i n Urine by Test strip High Negative [facility] Leukocyte esterase [Presence ] in Urine by Test stripOrdered By: Sailaja Anderson on 09-15-2024 Leukocyte esterase Test strip Ql (U) Leukocyte esterase [Presence] in Urine by Test strip Negative [facility] Leukocytes [#/area] in Urine sediment by Automated countOrdered By: Sailaja Anderson on 09-15-2024 WBC Auto (Urine sed) [#/Area] Leukocytes [#/area] in Urine sediment by Automated count 0-4 [facility] Leukocytes [#/volume] correc caitlin for nucleated erythrocytes in Blood by Automated counOrdered By: Sailaja Anderson on 09-15-2024 WBC corrected for nucl RBC Auto (Bld) [#/Vol] Leukocytes [#/volume] corrected for nucleated erythrocytes in Blood by Automated coun 3.8-11.6 [facility] Lymphocytes Auto (Bld) [#/Vo l]Ordered By: Sailaja Anderson on 09-15-2024 Lymphocytes (Bld) [#/Vol] Lymphocytes [#/volume] in Blood by Automated count 1.00-4.8 [facility] Lymphocytes/100 WBC Auto (Bl d)Ordered By: Sailaja Anderson on 09-15-2024 Lymphocytes/100 WBC (Bld) Lymphocytes/100 leukocytes in Blood by Automated count . [facility] MCH Auto (RBC) [Entitic mass ]Ordered By: Sailaja Anderson on 09-15-2024 MCH (RBC) [Entitic mass] MCH [Entitic mass] by Automated count 24.7-34.3 [facility] MCHC Auto (RBC) [Mass/Vol]Or dered By: Sailaja Anderson on 09-15-2024 MCHC (RBC) [Mass/Vol] MCHC [Mass/volume] by Automated count 32.0-35.0 [facility] MCV Auto (RBC) [Entitic vol] Ordered By: Sailaja Anderson on 09-15-2024 MCV (RBC) [Entitic vol] MCV [Entitic volume] by Automated count 80-100 [facility] Magnesiumon 09-15-2024 Magnesium [Mass/Vol] 1.7 mg/dL Low 1.9-2.7 [facility] Comment on above: Performed By: #### M YOG, SYMONE SERUM, SPE, RPR W RFX, SYMONE,URINE, UPE RAND, ALDOLASE #### [facility] , #### CK, CMP, CRP, T4F, TSH3, PP, CBC, ESR, ADDONUAPLUS #### [facility] [address] [place] [address] Magnesium [Mass/volume] in S tushar or PlasmaOrdered By: Sailaja Anderson on 09-15-2024 Magnesium [Mass/Vol] Magnesium [Mass/vol ume] in Serum or Plasma Low 1.9-2.7 [facility] Monocyte distribution width [Entitic volume] in Blood by AutomatedOrdered By: Sailaja Anderson on 09-15-2024 Monocyte distribution width Auto (Bld) [Entitic vol] Monocyte distribution width [Entitic volume] in Blood by Automated 0.00-20.00 [facility] Monocytes Auto (Bld) [#/Vol] Ordered By: Sailaja Anderson on 09-15-2024 Monocytes (Bld) [#/Vol] Automated blood monocyte count 0.0-0.8 [facility] Monocytes/100 WBC Auto (Bld) Ordered By: Sailaja Anderson on 09-15-2024 Monocytes/100 WBC (Bld) Automated monocyte % . [facility] Mucus [Presence] in Urine by AutomatedOrdered By: Sailaja Anedrson on 09-15-2024 Mucus Auto Ql (U) Mucus [Presence] in Urine by Automated [facility] Neutrophils Auto (Bld) [#/Vo l]Ordered By: Sailaja Anderson on 09-15-2024 Neutrophils (Bld) [#/Vol] Neutrophils [#/volume] in Blood by Automated count 1.8-7.7 [facility] Neutrophils/100 WBC Auto (Bl d)Ordered By: Sailaja Anderson on 09-15-2024 Neutrophils/100 WBC (Bld) Automated neutrophil % . [facility] Nitrite Test strip Ql (U)Ord ered By: Sailaja Anderson on 09-15-2024 Nitrite Ql (U) Nitrite [Presence] i n Urine by Test strip Negative [facility] No Panel InformationOrdered By: Sailaja Anderson on 09-15-2024 Estimated GFR (CKD-EPI) > 60.0 mL/Min [facility] Creatinine Clearance (Chem 157.80 [facility] Nucleated erythrocytes [Pres ence] in Blood by Automated countOrdered By: Sailaja Anderson on 09-15-2024 Nucleated RBC Auto Ql (Bld) Nucleated erythrocytes [Presence] in Blood by Automated count 0-0.5 [facility] Opiates [Presence] in Urine by Screen methodOrdered By: Sailaja Anderson on 09-15-2024 Opiates Screen Ql (U) Opiates [Presence] in Urine by Screen method Negative [facility] Partial Thromboplastin Timeo n 09-15-2024 aPTT Coag (Bld) [Time] 28.0 s Normal 25.1-36.5 [facility] Comment on above: Result Comment: A he matocrit value greater than 55% may lead to inaccurate results in coagulation testing. Patients having hematocrit values >55% require a special collection tube for coagulation studies. Please contact the laboratory at [phone] for redraw instructions. PERFORMED BY: [place] [address] PATHOLOGIST [employer] TE[employer] CARLOS KNAPP M.D. Performed By: #### M YOG, SYMONE SERUM, SPE, RPR W RFX, SYMONE,URINE, UPE RAND, ALDOLASE #### [facility] , #### CK, CMP, CRP, T4F, TSH3, PP, CBC, ESR, ADDONUAPLUS #### [facility] [address] [place] [address] Phencyclidine Screen Ql (U)O rdered By: Sailaja Anderson on 09-15-2024 Phencyclidine Ql (U) Phencyclidine [Presence] in Urine by Screen method Negative [facility] Platelet mean volume Auto (B ld) [Entitic vol]Ordered By: Sailaja Anderson on 09-15-2024 Platelet mean volume (Bld) [Entitic vol] Platelet mean volume [Entitic volume] in Blood by Automated count 6.3-10.7 [facility] Platelets Auto (Bld) [#/Vol] Ordered By: Sailaja Anderson on 09-15-2024 Platelets (Bld) [#/Vol] Platelets [#/volume] in Blood by Automated count 150-450 [facility] Potassium [Moles/volume] in Serum or PlasmaOrdered By: Sailaja Anderson on 09-15-2024 Potassium [Moles/Vol] Potassium [Moles/volume] in Serum or Plasma 3.5-5.1 [facility] Protein Test strip (U) [Mass /Vol]Ordered By: Sailaja Anderson on 09-15-2024 Protein (U) [Mass/Vol] Protein [Mass/vol ume] in Urine by Test strip High Negative [facility] Protein [Mass/volume] in Ser um or PlasmaOrdered By: Sailaja Anderson on 09-15-2024 Protein [Mass/Vol] Protein [Mass/volume ] in Serum or Plasma 6.4-8.9 [facility] Prothrombin Time INRon 09-15 INR Coag (PPP) [Relative time] 0.9 {INR} Normal [facility] Comment on above: Result Comment: [...] valves: 3 - 4.5 Performed By: #### M YOG, SYMONE SERUM, SPE, RPR W RFX, SYMONE,URINE, UPE RAND, ALDOLASE #### [facility] , #### CK, CMP, CRP, T4F, TSH3, PP, CBC, ESR, ADDONUAPLUS #### [address] PT Coag (PPP) [Time] 10.4 s Normal 9.0-12.9 [facility] Comment on above: Result Comment: A he matocrit value greater than 55% may lead to inaccurate results in coagulation testing. Patients having hematocrit values >55% require a special collection tube for coagulation studies. Please contact the laboratory at [phone] for redraw instructions. Performed By: #### M YOG, SYMONE SERUM, SPE, RPR W RFX, SYMONE,URINE, UPE RAND, ALDOLASE #### [facility] , #### CK, CMP, CRP, T4F, TSH3, PP, CBC, ESR, ADDONUAPLUS #### [facility] [address] [place] [address] [facility] Prothrombin time (PT)Ordered By: Sailaja Anderson on 09-15-2024 PT Coag (PPP) [Time] Prothrombin time (PT) 9.0- 12.9 [facility] Comment on above: A hematocrit value g reater than 55% may lead to inaccurate results in coagulation testing. Patients having hematocrit values >55% require a special collection tube for coagulation studies. Please contact the laboratory at [phone] for redraw instructions. RBC Auto (Bld) [#/Vol]Ordere d By: Sailaja Anderson on 09-15-2024 RBC (Bld) [#/Vol] Erythrocytes [#/volu me] in Blood by Automated count 3.60-5.00 [facility] Serum or plasma albumin/glob ulin mass ratioOrdered By: Sailaja Anderson on 09-15-2024 Albumin/Globulin [Mass ratio] Serum or plasma albumin/globulin mass ratio [facility] Serum or plasma anion gap de terminationOrdered By: Sailaja Anderson on 09-15-2024 Anion gap [Moles/Vol] Serum or plasma an ion gap determination 6.0-15.0 [facility] Sodium [Moles/volume] in Ser um or PlasmaOrdered By: Sailaja [facility] on 09-15-2024 Sodium [Moles/Vol] Sodium [Moles/volume ] in Serum or Plasma 136-145 [facility] Specific gravity Test strip (U) [Rel density]Ordered By: Sailaja Anderson on 09-15-2024 Specific gravity (U) [Rel density] Specific gravity of Urine by Test strip 1.001-1.030 [facility] Thyroid Stimulating Hormoneo n 09-15-2024 TSH Qn 0.73 m[IU]/L Normal 0.45-5.33 [facility] Comment on above: Result Comment: PERF ORMED BY: [facility] [address] [facility] [place] [address] PATHOLOGIST [employer] CARLOS KNAPP M.D. Performed By: #### M YOG, SYMONE SERUM, SPE, RPR W RFX, SYMONE,URINE, UPE RAND, ALDOLASE #### [facility] , #### CK, CMP, CRP, T4F, TSH3, PP, CBC, ESR, ADDONUAPLUS #### [address] Thyrotropin [Units/volume] i n Serum or PlasmaOrdered By: Sailaja Anderson on 09-15-2024 TSH Qn Thyrotropin [Units/volume] in Serum or Plasma 0.45-5.33 [facility] Thyroxine (T4) free [Mass/vo lume] in Serum or PlasmaOrdered By: Sailaja Anderson on 09-15-2024 Free T4 [Mass/Vol] Thyroxine (T4) free [Mass/volume] in Serum or Plasma 0.61-1.12 [facility] Troponin I High Sensitivityo n 09-15-2024 Troponin I High Sensitivity 2.3 pg/mL Normal 0.0-15.0 [facility] Comment on above: Result Comment: PERF ORMED BY: [address] [place] [address] PATHOLOGIST [employer] TE[employer] CARLOS KNAPP M.D. Performed By: #### M YOG, SYMONE SERUM, SPE, RPR W RFX, SYMONE,URINE, UPE RAND, ALDOLASE #### [facility] , #### CK, CMP, CRP, T4F, TSH3, PP, CBC, ESR, ADDONUAPLUS #### [address] Troponin I.cardiac [Mass/vol ume] in Serum or Plasma by Detection limit <= 0.01 ng/Ordered By: Sailaja Anderson on 09-15-2024 Troponin I.cardiac DL <= 0.01 ng/mL [Mass/Vol] Troponin I.cardiac [Mass/volume] in Serum or Plasma by Detection limit <= 0.01 ng/ 0.0-15.0 [facility] Urea nitrogen [Mass/volume] in Serum or PlasmaOrdered By: Sailaja Anderson on 09-15-2024 Urea nitrogen [Mass/Vol] Urea nitrogen [Mass/volume] in Serum or Plasma Low 7-25 [facility] Urobilinogen Test strip (U) [Mass/Vol]Ordered By: Sailaja Anderson on 09-15-2024 Urobilinogen (U) [Mass/Vol] Urobilinogen [Mass/volume] in Urine by Test strip High Normal [facility] WBC Auto (Bld) [#/Vol]Ordere d By: Sailaja Anderson on 09-15-2024 WBC (Bld) [#/Vol] Leukocytes [#/volume ] in Blood by Automated count 3.8-11.6 [facility] X-ray reportOrdered By: Wiley Shetty on 09-15-2024 Study report [place] [address] XRay Report Signed Patient: Shazia Chou MR#: [id number] : 1990 Acct:[id number] Age/Sex: 33 / F ADM Date: 5 Loc: ER Room: Type: [facility] ER Attending Dr: Copies to: Sailaja Anderson APRN~ Ordering Provider: Sailaja Anderson APRN Date of Service: 09/15/24 XR/XR chest 2V*: Chest Pain XR chest 2V* 09/15/2024 2:24 PM SIGNS AND SYMPTOMS: Muscle fatigue, weakness, imbalance, history of pseudotumor PROTOCOL: Frontal and lateral radiograph of the chest COMPARISON: 12/10/2023 FINDINGS: The trachea is midline. The heart and mediastinal structures are within normal limits. The lung parenchyma is clear. The bony thorax is intact. There is a dextro convex curvature of the thoracic spine. XR/XR chest 2V* IMPRESSION: No acute cardiopulmonary pathology. Impression dictated by: Wiley Shetty M.D.09/15/2024 3:56 PM Dictation Location: [place] [address] Transcribed By: MARKY 09/15/24 1556 Dictated By: Wiley Shetty II, MD 09/15/24 1556 Signed By: 09/15/24 155 [facility] Work Phone: XR chest 2V*on 09-15-2024 XR chest 2V* [place] [facility] [place] [address] [place] [address] XRay Report Signed Patient: Shazia Chou MR#: [id number] : 1990 Acct:[id number] Age/Sex: 33 / F ADM Date: 09/15/24 Loc: ER Room: Type: [facility] ER Attending Dr: Copies to: Sailaja Anderson APRN Ordering Provider: Sailaja Anderson APRN Date of Service: 09/15/24 XR/XR chest 2V*: Chest Pain XR chest 2V* 09/15/2024 2:24 PM SIGNS AND SYMPTOMS: Muscle fatigue, weakness, imbalance, history of pseudotumor PROTOCOL: Frontal and lateral radiograph of the chest COMPARISON: 12/10/2023 FINDINGS: The trachea is midline. The heart and mediastinal structures are within normal limits. The lung parenchyma is clear. The bony thorax is intact. There is a dextro convex curvature of the thoracic spine. XR/XR chest 2V* IMPRESSION: No acute cardiopulmonary pathology. Impression dictated by: Wiley Shetty M.D.09/15/2024 3:56 PM Dictation Location: [place] [address] Transcribed By: [facility] 09/15/24 1556 Dictated By: Wiley Shetty II, MD 09/15/24 1556 Signed By: 09/15/24 1556 Normal [facility] aPTT in Platelet poor plasma by Coagulation assayOrdered By: Sailaja Anderson on 09-15-2024 aPTT Coag (PPP) [Time] Activated partial thromboplastin time (aPTT) in platelet poor plasma by coagulation a 25.1-36.5 [facility] Comment on above: A hematocrit value g reater than 55% may lead to inaccurate results in coagulation testing. Patients having hematocrit values >55% require a special collection tube for coagulation studies. Please contact the laboratory at [phone] for redraw instructions. pH Test strip (U)Ordered By: Sailaja Anderson on 09-15-2024 pH (U) pH of Urine by Test strip 5.0-9.0 [facility] TRANSTHORACIC ECHO (TTE) COM OMERTEmaximiliano 09-13-2024 TRANSTHORACIC ECHO (TTE) COMPLETE [facility] [address], [address], [place] [address] TRANSTHORACIC ECHOCARDIOGRAM REPORT Patient Name: SHAZIA CHOU Reading Physician: [id number] Adithya Boswell MD, [facility] Study Date: 09/13/2024 Ordering Provider: [id number] ALEAH HOWARD MRN/PID: [id number] Fellow: Nurse: Date of /Age: 4 1990 / 33 years Peripheral Equipment Operator: Julissa Licona RDCS T Gender Assigned at F Additional Staff: : Height: 170.18 cm Admit Date: Weight: 85.28 kg Admission Status: BSA / BMI: 1.97 m2 / 29.45 Department Location: [facility] kg/m2 [facility] Blood Pressure: 118 /76 mmHg Study Type: TRANSTHORACIC ECHO (TTE) COMPLETE Diagnosis/ICD: Angina pectoris, unspecified-I20.9; Shortness of breath-R06.02; Palpitations-R00.2; Family history of ischemic heart disease and other diseases of the circulatory system-Z82.49; Essential (primary) hypertension-I10 Indication: Tobacco Abuse, Anxiety/Depression, Pseudotumor Cerebri, ETOH Abuse, Bipolar Disorder, History of Gastric Bypass CPT Codes: Echo Complete w Full Doppler-[id number] Study Detail: The following Echo studies were performed: 2D, M-Mode, Doppler and color flow. PHYSICIAN INTERPRETATION: Left Ventricle: Left ventricular ejection fraction is normal, by visual estimate at 65-70%. There is mild eccentric left ventricular hypertrophy. There are no regional wall motion abnormalities. The left ventricular cavity size is normal. There is mild increased septal and normal posterior left ventricular wall thickness. Spectral Doppler shows a normal pattern of left ventricular diastolic filling. Left Atrium: The left atrium is normal in size. Right Ventricle: The right ventricle is normal in size. There is normal right ventricular global systolic function. Right Atrium: The right atrium is normal in size. Aortic Valve: The aortic valve is trileaflet. The aortic valve dimensionless index is 0.70. There is no evidence of aortic valve regurgitation. The peak instantaneous gradient of the aortic valve is 8 mmHg. The mean gradient of the aortic valve is 4 mmHg. Mitral Valve: The mitral valve is normal in structure. The peak instantaneous gradient of the mitral valve is 4 mmHg. There is trace mitral valve regurgitation. Tricuspid Valve: The tricuspid valve is structurally normal. There is trace tricuspid regurgitation. Pulmonic Valve: The pulmonic valve is structurally normal. There is trace pulmonic valve regurgitation. Pericardium: No pericardial effusion noted. Aorta: The aortic root is normal. Systemic Veins: The inferior vena cava appears normal in size. In comparison to the previous echocardiogram(s): No previous studies are available for comparison. CONCLUSIONS: 1. Left ventricular ejection fraction is normal, by visual estimate at 65-70%. 2. There is normal right ventricular global systolic function. 3. No previous studies are available for comparison. QUANTITATIVE DATA SUMMARY: 2D MEASUREMENTS: Normal Ranges: Ao Root d: 2.90 cm (2.0-3.7cm) LAs: 3.40 cm (2.7-4.0cm) RVIDd: 3.43 cm (0.9-3.6cm) IVSd: 1.18 cm (0.6-1.1cm) LVPWd: 0.92 cm (0.6-1.1cm) LVIDd: 5.01 cm (3.9-5.9cm) LVIDs: 3.52 cm LV Mass Index: 98.8 g/m2 LV % FS 29.7 % LV SYSTOLIC FUNCTION BY 2D PLANIMETRY (MOD): Normal Ranges: EF-A4C View: 68 % (>=55%) EF-A2C View: 71 % EF-Biplane: 68 % EF-Visual: 68 % LV EF Reported: 68 % LV DIASTOLIC FUNCTION: Normal Ranges: MV Peak E: 1.15 m/s (0.7-1.2 m/s) MV Peak A: 0.76 m/s (0.42-0.7 m/s) E/A Ratio: 1.52 (1.0-2.2) MV e' 0.145 m/s (>8.0) MV lateral e' 0.18 m/s MV medial e' 0.12 m/s E/e' Ratio: 7.93 (<8.0) MITRAL VALVE: Normal Ranges: MV Vmax: 1.04 m/s (<=1.3m/s) MV peak P.3 mmHg (<5mmHg) MV mean P.0 mmHg (<48mmHg) MITRAL INSUFFICIENCY: Normal Ranges: MR Vmax: 261.00 cm/s AORTIC VALVE: Normal Ranges: AoV Vmax: 1.43 m/s (<=1.7m/s) AoV Peak P.2 mmHg (<20mmHg) AoV Mean P.0 mmHg (1.7-11.5mmHg) LVOT Max Joellen: 0.93 m/s (<=1.1m/s) AoV VTI: 30.90 cm (18-25cm) LVOT VTI: 21.60 cm LVOT Diameter: 2.20 cm (1.8-2.4cm) AoV Area, VTI: 2.66 cm2 (2.5-5.5cm2) AoV Area,Vmax: 2.48 cm2 (2.5-4.5cm2) AoV Dimensionless Index: 0.70 TRICUSPID VALVE/RVSP: Normal Ranges: Peak TR Velocity: 2.45 m/s RV Syst Pressure: 27 mmHg (< 30mmHg) PULMONIC VALVE: Normal Ranges: PV Max Joellen: 0.7 m/s (0.6-0.9m/s) PV Max P.1 mmHg [id number] Adithya Boswell MD, FACC Electronically signed on 09/13/2024 at 4:00:19 PM Final Normal [facility] US Heart TransthoracicOrdere d By: Adithya Boswell on 09-13-2024 Aortic Valve Area by Continuity of Peak Velocity 2.48 cm2 [facility] Work Phone: Aortic Valve Area by Continuity of VTI 2.66 cm2 [facility] Work Phone: AV mn grad 4 mmHg [facility] Work Phone: AV pk grad 8 mmHg [facility] Work Phone: AV pk joellen 1.43 m/s [facility] Work Phone: LV A4C EF 67.8 [facility] Work Phone: LV Biplane EF 68 % [facility] Work Phone: LV EF 68 % [facility] Work Phone: LVIDd 5.01 cm [facility] Work Phone: LVOT diam 2.2 cm [facility] Work Phone: MV avg E/e' ratio 6.6 [facility] Work Phone: MV E/A ratio 1.52 [facility] Work Phone: RVSP 27 mmHg [facility] Work Phone: [facility] Work Phone: Heart Transthoracicon [address], [address] [place] [address] TRANSTHORACIC ECHOCARDIOGRAM REPORT Patient Name: SHAZIA ANTONYJOEL Garcia Physician: [id number] Adithya Boswell MD, [facility] Study Date: 09/13/2024 Ordering Provider: [id number] ALEAH HOWARD MRN/PID: [id number] Fellow: Nurse: Date of /Age: 4 1990 / 33 years Peripheral Equipment Operator: Julissa Licona RDCS, RVT Gender Assigned at F Additional Staff: : Height: 170.18 cm Admit Date: Weight: 85.28 kg Admission Status: BSA / BMI: 1.97 m2 / 29.45 Department Location: [facility] kg/m2 [facility] [place] Blood Pressure: 118 /76 mmHg Study Type: TRANSTHORACIC ECHO (TTE) COMPLETE Diagnosis/ICD: Angina pectoris, unspecified-I20.9; Shortness of breath-R06.02; Palpitations-R00.2; Family history of ischemic heart disease and other diseases of the circulatory system-Z82.49; Essential (primary) hypertension-I10 Indication: Tobacco Abuse, Anxiety/Depression, Pseudotumor Cerebri, ETOH Abuse, Bipolar Disorder, History of Gastric Bypass CPT Codes: Echo Complete w Full Doppler-06582 Study Detail: The following Echo studies were performed: 2D, M-Mode, Doppler and color flow. PHYSICIAN INTERPRETATION: Left Ventricle: Left ventricular ejection fraction is normal, by visual estimate at 65-70%. There is mild eccentric left ventricular hypertrophy. There are no regional wall motion abnormalities. The left ventricular cavity size is normal. There is mild increased septal and normal posterior left ventricular wall thickness. Spectral Doppler shows a normal pattern of left ventricular diastolic filling. Left Atrium: The left atrium is normal in size. Right Ventricle: The right ventricle is normal in size. There is normal right ventricular global systolic function. Right Atrium: The right atrium is normal in size. Aortic Valve: The aortic valve is trileaflet. The aortic valve dimensionless index is 0.70. There is no evidence of aortic valve regurgitation. The peak instantaneous gradient of the aortic valve is 8 mmHg. The mean gradient of the aortic valve is 4 mmHg. Mitral Valve: The mitral valve is normal in structure. The peak instantaneous gradient of the mitral valve is 4 mmHg. There is trace mitral valve regurgitation. Tricuspid Valve: The tricuspid valve is structurally normal. There is trace tricuspid regurgitation. Pulmonic Valve: The pulmonic valve is structurally normal. There is trace pulmonic valve regurgitation. Pericardium: No pericardial effusion noted. Aorta: The aortic root is normal. Systemic Veins: The inferior vena cava appears normal in size. In comparison to the previous echocardiogram(s): No previous studies are available for comparison. CONCLUSIONS: 1. Left ventricular ejection fraction is normal, by visual estimate at 65-70%. 2. There is normal right ventricular global systolic function. 3. No previous studies are available for comparison. QUANTITATIVE DATA SUMMARY: 2D MEASUREMENTS: Normal Ranges: Ao Root d: 2.90 cm (2.0-3.7cm) LAs: 3.40 cm (2.7-4.0cm) RVIDd: 3.43 cm (0.9-3.6cm) IVSd: 1.18 cm (0.6-1.1cm) LVPWd: 0.92 cm (0.6-1.1cm) LVIDd: 5.01 cm (3.9-5.9cm) LVIDs: 3.52 cm LV Mass Index: 98.8 g/m2 LV % FS 29.7 % LV SYSTOLIC FUNCTION BY 2D PLANIMETRY (MOD): Normal Ranges: EF-A4C View: 68 % (>=55%) EF-A2C View: 71 % EF-Biplane: 68 % EF-Visual: 68 % LV EF Reported: 68 % LV DIASTOLIC FUNCTION: Normal Ranges: MV Peak E: 1.15 m/s (0.7-1.2 m/s) MV Peak A: 0.76 m/s (0.42-0.7 m/s) E/A Ratio: 1.52 (1.0-2.2) MV e' 0.145 m/s (>8.0) MV lateral e' 0.18 m/s MV medial e' 0.12 m/s E/e' Ratio: 7.93 (<8.0) MITRAL VALVE: Normal Ranges: MV Vmax: 1.04 m/s (<=1.3m/s) MV peak P.3 mmHg (<5mmHg) MV mean P.0 mmHg (<48mmHg) MITRAL INSUFFICIENCY: Normal Ranges: MR Vmax: 261.00 cm/s AORTIC VALVE: Normal Ranges: AoV Vmax: 1.43 m/s (<=1.7m/s) AoV Peak P.2 mmHg (<20mmHg) AoV Mean P.0 mmHg (1.7-11.5mmHg) LVOT Max Joellen (more content not included)... Adithya Jenkins M D - 09/13/[address], [address] [place] [address] TRANSTHORACIC ECHOCARDIOGRAM REPORT Patient Name: SHAZIA Garcia Physician: [id number] Adithya Boswell MD, [facility] Study Date: 09/13/2024 Ordering Provider: [id number] ALEAH HOWARD MRN/PID: [id number] Fellow: Nurse: Date of /Age: 4 1990 / 33 years Peripheral Equipment Operator: Julissa Licona RDCS RVT Gender Assigned at F Additional Staff: : Height: 170.18 cm Admit Date: Weight: 85.28 kg Admission Status: BSA / BMI: 1.97 m2 / 29.45 Department Location: [facility] kg/m2 [facility] [place] Blood Pressure: 118 /76 mmHg Study Type: TRANSTHORACIC ECHO (TTE) COMPLETE Diagnosis/ICD: Angina pectoris, unspecified-I20.9; Shortness of breath-R06.02; Palpitations-R00.2; Family history of ischemic heart disease and other diseases of the circulatory system-Z82.49; Essential (primary) hypertension-I10 Indication: Tobacco Abuse, Anxiety/Depression, Pseudotumor Cerebri, ETOH Abuse, Bipolar Disorder, History of Gastric Bypass CPT Codes: Echo Complete w Full Doppler-43007 Study Detail: The following Echo studies were performed: 2D, M-Mode, Doppler and color flow. PHYSICIAN INTERPRETATION: Left Ventricle: Left ventricular ejection fraction is normal, by visual estimate at 65-70%. There is mild eccentric left ventricular hypertrophy. There are no regional wall motion abnormalities. The left ventricular cavity size is normal. There is mild increased septal and normal posterior left ventricular wall thickness. Spectral Doppler shows a normal pattern of left ventricular diastolic filling. Left Atrium: The left atrium is normal in size. Right Ventricle: The right ventricle is normal in size. There is normal right ventricular global systolic function. Right Atrium: The right atrium is normal in size. Aortic Valve: The aortic valve is trileaflet. The aortic valve dimensionless index is 0.70. There is no evidence of aortic valve regurgitation. The peak instantaneous gradient of the aortic valve is 8 mmHg. The mean gradient of the aortic valve is 4 mmHg. Mitral Valve: The mitral valve is normal in structure. The peak instantaneous gradient of the mitral valve is 4 mmHg. There is trace mitral valve regurgitation. Tricuspid Valve: The tricuspid valve is structurally normal. There is trace tricuspid regurgitation. Pulmonic Valve: The pulmonic valve is structurally normal. There is trace pulmonic valve regurgitation. Pericardium: No pericardial effusion noted. Aorta: The aortic root is normal. Systemic Veins: The inferior vena cava appears normal in size. In comparison to the previous echocardiogram(s): No previous studies are available for comparison. CONCLUSIONS: 1. Left ventricular ejection fraction is normal, by visual estimate at 65-70%. 2. There is normal right ventricular global systolic function. 3. No previous studies are available for comparison. QUANTITATIVE DATA SUMMARY: 2D MEASUREMENTS: Normal Ranges: Ao Root d: 2.90 cm (2.0-3.7cm) LAs: 3.40 cm (2.7-4.0cm) RVIDd: 3.43 cm (0.9-3.6cm) IVSd: 1.18 cm (0.6-1.1cm) LVPWd: 0.92 cm (0.6-1.1cm) LVIDd: 5.01 cm (3.9-5.9cm) LVIDs: 3.52 cm LV Mass Index: 98.8 g/m2 LV % FS 29.7 % LV SYSTOLIC FUNCTION BY 2D PLANIMETRY (MOD): Normal Ranges: EF-A4C View: 68 % (>=55%) EF-A2C View: 71 % EF-Biplane: 68 % EF-Visual: 68 % LV EF Reported: 68 % LV DIASTOLIC FUNCTION: Normal Ranges: MV Peak E: 1.15 m/s (0.7-1.2 m/s) MV Peak A: 0.76 m/s (0.42-0.7 m/s) E/A Ratio: 1.52 (1.0-2.2) MV e' 0.145 m/s (>8.0) MV lateral e' 0.18 m/s MV medial e' 0.12 m/s E/e' Ratio: 7.93 (<8.0) MITRAL VALVE: Normal Ranges: MV Vmax: 1.04 m/s (<=1.3m/s) MV peak P.3 mmHg (<5mmHg) MV mean P.0 mmHg (<48mmHg) MITRAL INSUFFICIENCY: Normal Ranges: MR Vmax: 261.00 cm/s AORTIC VALVE: Normal Ranges: AoV Vmax: 1.43 m/s (<=1.7m/s) AoV Peak P.2 mmHg (<20mmHg) AoV Mean P.0 mmHg (1.7-11.5mmHg) LVOT Max Joellen: 0.93 m/s (<=1.1m/s) AoV VTI: 30.90 cm (18-25cm) LVOT VTI: 21.60 cm LVOT Diameter: 2.20 cm (1.8-2.4cm) AoV Area, VTI: 2.66 cm2 (2.5-5.5cm2) AoV Area,Vmax: 2.48 cm2 (2.5-4.5cm2) AoV Dimensionless Index: 0.70 TRICUSPID VALVE/RVSP: Normal Ranges: Peak TR Velocity: 2.45 m/s RV Syst Pressure: 27 mmHg (< 30mmHg) PULMONIC VALVE: Normal Ranges: PV Max Joellen: 0.7 m/s (0.6-0.9m/s) PV Max P.1 mmHg [id number] Adithya Boswell MD, [facility] Electronically signed on 09/13/2024 at 4:00:19 PM Final [facility] Work Phone: EBV Early Abon 08-19-2024 EBV early diffuse IgG Qn (S) <9.0 Invalid Interpretation Code 0.0-8.9 [facility] Comment on above: Result Comment: Nega tive < 9.0 Equivocal 9.0 - 10.9 Positive >10.9 Performed at: [facility] [id number] PhD Cordelia Madera Performed By: #### 1 [id number] #### [facility] [address] [place] [address] CHEMISTRYOrdered By: SYSTEM SYSTEM on 08-18-2024 Ferritin [...] By: Rayne Pinto on 08-18-2024 Test Code [id number] 1 Invalid Interpretation Code [facility] SendOuts Test Name a1C Invalid Interpretation Code [facility] SendOutsSS ECG 12 Leadon 08-16-2024 [facility] Work Phone: 25(OH)D3 [facility] 25-hydroxyvitamin D3 [Mass/Vol] 41.9 ng/mL Normal 31.0-80.0 [facility] Comment on above: Order Comment: Speci men Type: BLOOD SPECIMENOrdering Facility: [facility] Address: [address] [place] [address] Result Comment: Clas sification of 25 [place] Vitamin D status: Deficiency/Insufficiency: < or = 30 ng/ml. Sufficiency/Optimal Levels: 31-80 ng/mL Toxicity: > 100 ng/mL. Test performed by chemiluminescent immunoassay. Performed By: #### 1 989-3 ####[facility] LABCLIA [id number] [place] [id number] [place] CBC W Auto Differential pane l (Bld)on 07-26-2024 Basophils (Bld) [#/Vol] 0.05 10*3/uL Normal <0.11 [facility] Comment on above: Order Comment: Speci men Type: BLOOD SPECIMEN [facility]ing Facility: [facility] Address: [address] [place] [address] Performed By: #### 5 7021-8 #### [facility] CLIA [id number] [address] [place] [address]111 Basophils/100 WBC (Bld) 0.4 % Normal [facility] Comment on above: Order Comment: Speci men Type: BLOOD SPECIMEN Ordering Facility: [facility] Address: [address] [place] [address] Performed By: #### 5 7021-8 #### [facility] CLIA [id number] [address] [place] [address]25 Differential cell count method Nom (Bld) Auto Normal [facility] Comment on above: Order Comment: Speci men Type: BLOOD SPECIMEN [facility]ing Facility: [facility] Address: [address] [place] [address] Performed By: #### 5 7021-8 #### [facility] CLIA [id number] [address] [place] [address]844 Eosinophils (Bld) [#/Vol] 0.29 10*3/uL Normal <0.46 [facility] Comment on above: Order Comment: Speci men Type: BLOOD SPECIMEN Ordering Facility: [facility] Address: [address] [place] [address] Performed By: #### 5 7021-8 #### [facility] CLIA [id number] [address] [place] [address]2931 Eosinophils/100 WBC (Bld) 2.3 % Normal [facility] Comment on above: Order Comment: Speci men Type: BLOOD SPECIMEN Ordering Facility: [facility] Address: [address] [place] [address] Performed By: #### 5 7021-8 #### [facility] CLIA [id number] [address] [place] [address]253 Erythrocyte distribution width (RBC) [Ratio] 16.4 % High 11.5-15.0 [facility] Comment on above: Order Comment: Speci men Type: BLOOD SPECIMEN [facility]ing Facility: [facility] Address: [address] [place] [address] Performed By: #### 5 7021-8 #### [facility] CLIA [id number] [address] [place] [address]4744 Hematocrit (Bld) [Volume fraction] 38.2 % Normal 36.0-46.0 [facility] Comment on above: Order Comment: Speci men Type: BLOOD SPECIMEN Ordering Facility: [facility] Address: [address] [place] [address] Performed By: #### 5 7021-8 #### [facility] CLIA [id number] [address] [place] [address] 66702 Hemoglobin (Bld) [Mass/Vol] 13.0 g/dL Normal 11.5-15.5 [facility] Comment on above: Order Comment: Speci men Type: BLOOD SPECIMEN Ordering Facility: [facility] Address: [address] [place], [place] [address] Performed By: #### 5 7021-8 #### [facility] CLIA [id number] [address] [place] [address] 43661 Immature granulocytes (Bld) [#/Vol] 0.04 10*3/uL Normal <0.10 [facility] Comment on above: Order Comment: Speci men Type: BLOOD SPECIMEN Ordering Facility: [facility] Address: [address] [place] [address] Performed By: #### 5 7021-8 #### [facility] CLIA [id number] [address] [place] [address] 54770 Immature granulocytes/100 WBC (Bld) 0.3 % Normal [facility] Comment on above: Order Comment: Speci men Type: BLOOD SPECIMEN [facility]ing Facility: [facility] Address: [address] [place] [address] Performed By: #### 5 7021-8 #### [facility] CLIA [id number] [address] [place] [address] 11013 Lymphocytes (Bld) [#/Vol] 1.78 10*3/uL Normal 1.00-4.00 [facility] Comment on above: Order Comment: Speci men Type: BLOOD SPECIMEN Ordering Facility: [facility] Address: [address] [place] [address] Performed By: #### 5 7021-8 #### [facility] CLIA [id number] [address] [place] [address] 87279 Lymphocytes/100 WBC (Bld) 14.4 % Normal [facility] Comment on above: Order Comment: Speci men Type: BLOOD SPECIMEN Ordering Facility: [facility] Address: [address] [place] [address] Performed By: #### 5 7021-8 #### [facility] CLIA [id number] [address] [place] [address] 81194 MCH (RBC) [Entitic mass] 31.4 pg Normal 26.0-34.0 [facility] Comment on above: Order Comment: Speci men Type: BLOOD SPECIMEN Ordering Facility: [facility] Address: [address] [place] [address] Performed By: #### 5 7021-8 #### [facility] CLIA [id number] [address] [place] [address] MCHC (RBC) [Mass/Vol] 34.0 g/dL Normal 30.5-36.0 [facility] Comment on above: Order Comment: Speci men Type: BLOOD SPECIMEN [facility] Facility: [facility] Address: [address] [place] [address] Performed By: #### 5 7021-8 #### [facility] CLIA [id number] [address] [place] [address]22 MCV (RBC) [Entitic vol] 92.3 fL Normal 80.0-100.0 [facility] Comment on above: Order Comment: Speci men Type: BLOOD SPECIMEN Ordering Facility: [facility] Address: [address] [place] [address] Performed By: #### 5 7021-8 #### [facility] CLIA [id number] [address] [place] [address] 15512 Monocytes (Bld) [#/Vol] 0.62 10*3/uL Normal <0.87 [facility] Comment on above: Order Comment: Speci men Type: BLOOD SPECIMEN Order[facility] Facility: [facility] Address: [address] [place] [address] Performed By: #### 5 7021-8 #### [facility] CLIA [id number] [address] [place] [address] 41901 Monocytes/100 WBC (Bld) 5.0 % Normal [facility] Comment on above: Order Comment: Speci men Type: BLOOD SPECIMEN [facility] Facility: [facility] Address: [address] [place] [address] Performed By: #### 5 7021-8 #### [facility] CLIA [id number] [address] [place] [address] 53913 Neutrophils (Bld) [#/Vol] 9.58 10*3/uL High 1.45-7.50 [facility] Comment on above: Order Comment: Speci men Type: BLOOD SPECIMEN Order[facility] Facility: [facility] Address: [address] [place] [address] Performed By: #### 5 7021-8 #### [facility] CLIA [id number] [address] [place] [address] 97168 Neutrophils/100 WBC (Bld) 77.6 % Normal [facility] Comment on above: Order Comment: Speci men Type: BLOOD SPECIMEN Order[facility] Facility: [facility] Address: [address] [place] [address] Performed By: #### 5 7021-8 #### [facility] CLIA [id number] [address] [place] [address] 01075 Nucleated RBC (Bld) [#/Vol] 10*3/uL Normal <0.01 [facility] Comment on above: Order Comment: Speci men Type: BLOOD SPECIMEN [facility] Facility: [facility] Address: [address] [place] [address] Performed By: #### 5 7021-8 #### [facility] CLIA [id number] [address] [place] [address]1971 Nucleated RBC/100 WBC (Bld) [Ratio] 0.0 /100 WBC Normal [facility] Comment on above: Order Comment: Speci men Type: BLOOD SPECIMEN [facility] Facility: [facility] Address: [address] [place] [address] Performed By: #### 5 7021-8 #### [facility] CLIA [id number] [address] [place] [address] 10113 Platelet mean volume (Bld) [Entitic vol] 10.8 fL Normal 9.0-12.7 [facility] Comment on above: Order Comment: Speci men Type: BLOOD SPECIMEN [facility] Facility: [facility] Address: [address] [place] [address] Performed By: #### 5 7021-8 #### [facility] CLIA [id number] [address] [place] [address] 86198 Platelets (Bld) [#/Vol] 302 10*3/uL Normal 150-400 [facility] Comment on above: Order Comment: Speci men Type: BLOOD SPECIMEN [facility] Facility: [facility] Address: [address] [place] [address] Performed By: #### 5 7021-8 #### [facility] CLIA [id number] [address] [place] [address] 85290 RBC (Bld) [#/Vol] 4.14 10*6/uL Normal 3.90-5.20 [facility] Comment on above: Order Comment: Speci men Type: BLOOD SPECIMEN [facility] Facility: [facility] Address: [address] [place] [address] Performed By: #### 5 7021-8 #### [facility] CLIA [id number] [address] [place] [address]1024 WBC (Bld) [#/Vol] 12.36 10*3/uL High 3.70-11.00 [facility] Comment on above: Order Comment: Speci men Type: BLOOD SPECIMEN [facility] Facility: [facility] Address: [address] [place] [address] Performed By: #### 5 7021-8 #### [facility] CLIA [id number] [address] [place] [address] 99072 Comprehensive metabolic 2000 panelon 07-26-2024 Albumin [Mass/Vol] 4.7 g/dL Normal 3.9-4.9 [facility] Comment on above: Order Comment: Speci men Type: BLOOD SPECIMEN [facility] Facility: [facility] Address: [address] [place] [address] Performed By: #### 5 5454-3 #### [facility] CLIA [id number] [address] [place] [address] [place] ALP [Catalytic activity/Vol] 64 U/L Normal 34-123 [facility] Comment on above: Order Comment: Speci men Type: BLOOD SPECIMEN Order[facility] Facility: [facility] Address: [address] [place] [address] Performed By: #### 5 5454-3 #### [facility] CLIA [id number] [address] [place] [address] [place] ALT [Catalytic activity/Vol] 13 U/L Normal 7-38 [facility] Comment on above: Order Comment: Speci men Type: BLOOD SPECIMEN [facility] Facility: [facility] Address: [address] [place] [address] Performed By: #### 5 5454-3 #### [facility] CLIA [id number] [address] [place] [address] [place] Anion gap [Moles/Vol] 11 mmol/L Normal 8-15 [facility] Comment on above: Order Comment: Speci men Type: BLOOD SPECIMEN Ordering Facility: [facility] Address: [address] [place] [address] Performed By: #### 5 5454-3 #### [facility] CLIA [id number] [address] [place] [address] [place] AST [Catalytic activity/Vol] 20 U/L Normal 13-35 [facility] Comment on above: Order Comment: Speci men Type: BLOOD SPECIMEN Ordering Facility: [facility] Address: [address] [place] [address] Performed By: #### 5 5454-3 #### [facility] CLIA [id number] [address] [place] [address] [place] Bilirubin [Mass/Vol] 0.2 mg/dL Normal 0.2-1.3 [facility] Comment on above: Order Comment: Speci men Type: BLOOD SPECIMEN Ordering Facility: [facility] Address: [address] [place] [address] Performed By: #### 5 5454-3 #### [facility] CLIA [id number] [address] [place] [address] [place] Calcium [Mass/Vol] 9.6 mg/dL Normal 8.5-10.2 [facility] Comment on above: Order Comment: Speci men Type: BLOOD SPECIMEN Ordering Facility: [facility] Address: [address] [place] [address] Performed By: #### 5 5454-3 #### [facility] CLIA [id number] [address] [place] [address] [place] Chloride [Moles/Vol] 106 mmol/L Normal 98-107 [facility] Comment on above: Order Comment: Speci men Type: BLOOD SPECIMEN Ordering Facility: [facility] Address: [address] [place] [address] Performed By: #### 5 5454-3 #### [facility] CLIA [id number] [address] [place] [address] [place] CO2 [Moles/Vol] 22 mmol/L Normal 22-30 [facility] Comment on above: Order Comment: Speci men Type: BLOOD SPECIMEN Ordering Facility: [facility] Address: [address] [place] [address] Performed By: #### 5 5454-3 #### [facility] CLIA [id number] [address] [place] [address] [place] Creatinine [Mass/Vol] 0.69 mg/dL Normal 0.58-0.96 [facility] Comment on above: Order Comment: Speci men Type: BLOOD SPECIMEN Ordering Facility: [facility] Address: [address] [place] [address] Performed By: #### 5 5454-3 #### [facility] CLIA [id number] [address] [place] [address] [place] Creatinine and Glomerular filtration rate.predicted panel (S/P/Bld) 116 mL/min/1.73m??? Normal >=60 [facility] Comment on above: Order Comment: Speci men Type: BLOOD SPECIMEN Ordering Facility: [facility] Address: [address] [place] [address] Result Comment: Brenda mated Glomerular Filtration Rate [...] accurately reflect actual GFR. Performed By: #### 5 5454-3 #### [facility] CLIA [id number] [address] [place] [address] [place] Glucose [Mass/Vol] 91 mg/dL Normal 74-99 [facility] Comment on above: Order Comment: Philip birmingham Type: BLOOD SPECIMEN Ordering Facility: [facility] Address: [address] [place] [address] [address] Comment: The [place] [employer] (ADA) provides guidance for cutoff [...] Standards of Medical Care in Diabetes 2016, [place] [employer]. Diabetes Care. 2016.39(Suppl 1). Performed By: #### 5 5454-3 #### [facility] CLIA [id number] [address] [place] [address] [place] Potassium [Moles/Vol] 4.3 mmol/L Normal 3.7-5.1 [facility] Comment on above: Order Comment: Philip birmingham Type: BLOOD SPECIMEN Ordering Facility: [facility] Address: [address] [place] [address] Performed By: #### 5 5454-3 #### [facility] CLIA [id number] [address] [place] [address] [place] Protein [Mass/Vol] 7.3 g/dL Normal 6.3-8.0 [facility] Comment on above: Order Comment: Speci men Type: BLOOD SPECIMEN Ordering Facility: [facility] Address: [address] [place] [address] Performed By: #### 5 5454-3 #### [facility] CLIA [id number] [address] [place] [address] [place] Sodium [Moles/Vol] 139 mmol/L Normal 136-144 [facility] Comment on above: Order Comment: Speci men Type: BLOOD SPECIMEN Ordering Facility: [facility] Address: [address] [place] [address] Performed By: #### 5 5454-3 #### [facility] CLIA [id number] [address] [place] [address] [place] Urea nitrogen [Mass/Vol] 9 mg/dL Normal 7-21 [facility] Comment on above: Order Comment: Speci men Type: BLOOD SPECIMEN Ordering Facility: [facility] Address: [address] [place] [address] Performed By: #### 5 5454-3 #### [facility] CLIA [id number] [address] [place] [address] [place] Ferritin SerPl-mCncon 2023 Ferritin [Mass/Vol] 17.5 ng/mL Normal 14.7-205.1 [facility] Comment on above: Order Comment: Speci men Type: BLOOD SPECIMENOrdering Facility: [facility] Address: [address] [place] [address] Performed By: #### 2 731-8, 16381-2, 2276-4 ####[facility] [id number] [place] [address] [place] Iron and Iron binding capaci ty panelon 11-12-2024 Iron [Mass/Vol] 114 ug/dL Normal 41-186 [facility] Comment on above: Order Comment: Speci men Type: BLOOD SPECIMENOrdering Facility: [facility] Address: [address] [place] [address] Performed By: #### 2 731-8, 23548-7, 2275-4 ####[facility] [id number] [place] [address] [place] Iron binding capacity [Mass/Vol] 360 ug/dL Normal 232-386 [facility] Comment on above: Order Comment: Speci men Type: BLOOD SPECIMENOrdering Facility: [facility] Address: [address] [place] [address] Performed By: #### 2 731-8, 33464-7, 4 ####[facility] [id number] [place] [address] [place] Iron/TIBC [Molar ratio] 31.7 % Normal 15.0-57.0 [facility] Comment on above: Order Comment: Speci men Type: BLOOD SPECIMENOrdering Facility: [facility] Address: [address] [place] [address] Performed By: #### 2 731-8, 90515-8, 4 ####[facility] [id number] [place] [address] [place] P[facility]act [facility] Parathyrin.intact [Mass/Vol] 17 pg/mL Normal 15-65 [facility] Comment on above: Order Comment: Speci men Type: BLOOD SPECIMENOrdering Facility: [facility] Address: [address] [place] [address] Performed By: #### 2 731-8, 60887-6, 4 ####[facility] [id number] [place] [id number] [place] CNOVon 07-25-2024 CNOV Office Visit (FPNRMO C) JOSÉ ANTONIOSHAZIA ([id number]) 1990 F Date Time Provider Department 07/25/24 3:00 PM [facility] During your visit today, we recorded the following information about you: Pulse Blood pressure Weight 67/minute 122/72 83.8 kg Tevin Carson DO 07/25/2024 4:57 PM Signed [facility] Medicine Visit Assessment and Plan 1. Bipolar [...] radiation of symptoms, or accompanying shortness of breath/nausea/lighthead edness/arm pain. 5. Iron deficiency anemia, unspecified iron [...] appointment. She is scheduled to see a case investigator at for this. ROS: As per HPI. [...] - Swelling Date Reviewed: 07/25/2024 Reviewed by: Melissa Hester LPN - Fully Assessed Reason for Visi (more content not included)... [facility] (RADMN) SHAZIA CHOU ([id number]) 1990 F Date Time Provider Department 07/13/24 PATRICIA TATE RADMA During your visit today, we recorded the [...] mg by mouth daily at bedtime. - rjqguovabibq-unc-lekn-F A-vit K (BARIATRIC MULTIVITAMINS) 45 mg iron- 800 [...] [F41.0] 03/08/2024 Encounter Status:Closed by PATRICIA TATE on 07/13/24 Normal [facility] DBT Breast - left diagnostic for implanton [...] Alexandra Son M.D. Electronically signed on: 07/11/2024 Ladle Repairman: ESRGIO Transcribe Date/Time: Jul 11 2024 8:53A Dictated by: ALEXANDRA SON MD This examination was interpreted and the report reviewed and electronically signed by: ALEXANDRA SON MD on Jul 11 2024 9:45AM [facility] DIVISION OF RADIOLOGY * * *Final Report* * * DATE OF EXAM: Jul 11 2024 9:17AM [facility] 0628 - LINDA GAMALIELG Moshe AV LT / PROCEDURE REASON: Abnormal mammogram of left breast * * * * Physician Interpretation * * * * RESULT: [facility] [address] [place] [address] HISTORY: 33 year old patient presents for [...] obscure small masses. DIVISION OF RADIOLOGY Provider, [facility] - 07/11/2024 * * *Final Report* * * DATE OF EXAM: Jul 11 2024 9:17AM [facility] 0628 - LINDA DIAG Moshe LEY LT / PROCEDURE REASON: Abnormal mammogram of left breast * * * * Physician Interpretation * * * * RESULT: [facility] [address] [place] [address] HISTORY: 33 year old patient presents for [...] Alexandra Son M.D. Electronically signed on: 07/11/2024 Ladle Repairman: SERGIO Transcribe Date/Time: Jul 11 2024 8:53A Dictated by: ALEXANDRA SON MD This examination was interpreted and the report reviewed and electronically signed by: ALEXANDRA SON MD on Jul 11 2024 9:45AM EST [facility] Radiology Study observation (narrative) [facility] LINDA MELVIN CASTROO LTon 024 LINDA MELVIN LEY LT * * *Final Report* * * * * * SEE BOTTOM OF REPORT FOR ADDENDED TEXT * * * DATE OF EXAM: Jul 11 2024 9:17AM [facility] 0628 - LINDA MELVIN W AV LT / PROCEDURE REASON: Abnormal mammogram of left breast * * * * Physician Interpretation * * * * RESULT: [facility] [address] [place] [address] - - - - - - - [...] Alexandra Son M.D. Electronically signed on: 07/11/2024 Ladle Repairman: SERGIO Transcribe Date/Time: Jul 11 2024 8:53A Dictated by: ALEXANDRA SON MD This examination was interpreted and the report reviewed and electronically signed by: ALEXANDRA SON MD on Jul 11 2024 9:45AM EST This document has been addended by: ALEXANDRA SON MD on Jul 13 2024 3:56PM EST [id number] [facility] US BIOPSY BREAST LTon [facility] US BIOPSY BREAST LT * * *Final Report* * * * * * SEE BOTTOM OF REPORT FOR ADDENDED TEXT * * * DATE OF EXAM: Jul 11 2024 9:15AM W 0597 - [facility] US BIOPSY BREAST LT / PROCEDURE REASON: Abnormal mammogram of left breast * * * * Physician Interpretation * * * * RESULT: [facility] [address] [place] [address] - - - - - - - [...] phone with the patient. Interpreting Radiologist: Alexandra Ilkanich, M.D. Electronically signed on: 07/13/2024 - - [...] Alexandra Son M.D. Electronically signed on: 07/11/2024 Ladle Repairman: SERGIO Transcribe Date/Time: Jul 11 2024 8:52A Dictated by: ALEXANDRA SON MD This examination was interpreted and the report reviewed and electronically signed by: ALEXANDRA SON MD on Jul 11 2024 9:45AM EST This document has been addended by: ALEXANDRA SON MD on Jul 13 2024 3:56PM EST [id number] Normal [facility] No Panel InformationOrdered By: Ccf Provider on 07-11-2024 [facility] SURGICAL PATHOLOGYon 024 CASE REPORT Normal [facility] Comment on above: Order Comment: Speci men Type: BLOOD SPECIMEN Ordering Facility: [facility] Address: [address] [place] [address] Result Comment: Surg ical Pathology Report Case: [id number] Authorizing Provider: Alexandra Son Collected: 07/11/2024 09:01 AM MD Nicole Ordering Location: Mammography Received: 07/11/2024 09:37 AM Pathologist: Mia Erwin MD Specimen: Breast, Left, Core Biopsy, Asymmetry 1:00 15 cm FN Ribbon clip Performed By: #### 5 5454-3 #### [facility] CLIA [id number] [address] [place] [address] 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 JR 07/12/2024 Performed By: #### 5 5454-3 #### [facility] CLIA [id number] [address] [place] [address] [place] FINAL PERFORMING LAB [facility] Comment on above: Order Comment: Speci men Type: BLOOD SPECIMEN Ordering Facility: [facility] Address: [address] [place] [address] Result Comment: Diag nostic interpretation performed at [facility], [address] [place] [address] CLIA# [id number] Tissue Rewinder: Jarred Canales M.D. Performed By: #### 5 5454-3 #### [facility] IA [id number] [address] [place] [address] [place] GROSS DESCRIPTION Normal [facility] Comment on above: Order Comment: Speci men Type: BLOOD SPECIMEN Ordering Facility: [facility] Address: [address] [place] [address] Result Comment: [place] reast, Left, Core Biopsy Received in [...] performed at [facility], [address] [place] [address] 07/11/2024 5:14 PM Performed By: #### 5 5454-3 #### [facility] IA [id number] [address] [place] [address] [place] US Guidance for biopsy of Br east - lefton 07-11-2024 IMPRESSION: ULTRASOU ND GUIDED BIOPSY Site 1: Successful ultrasound guided biopsy of the area at 1 o'clock, 15 cm from the nipple in the left breast with placement of a clip was successful. Waiting for pathology results. A final report will be issued when these become available. Interpreting Radiologist: Alexandra Son M.D. Electronically signed on: 07/11/2024 Ladle Repairman: SERGIO Transcribe Date/Time: Jul 11 2024 8:52A Dictated by: ALEXANDRA SON MD This examination was interpreted and the report reviewed and electronically signed by: ALEXANDRA SON MD on Jul 11 2024 9:45AM [facility] DIVISION OF RADIOLOGY * * *Final Report* * * DATE OF EXAM: Jul 11 2024 9:15AM [facility] 0597 - LINDA US BIOPSY BREAST LT / PROCEDURE REASON: Abnormal mammogram of left breast * * * * Physician Interpretation * * * * RESULT: [facility] [address] [place] [address] HISTORY: 33 year old patient presents for [...] obscure small masses. DIVISION OF RADIOLOGY Provider, [facility] Mahnaz [facility] - 07/11/2024 * * *Final Report* * * DATE OF EXAM: Jul 11 2024 9:15AM SSW 0597 - LINDA US BIOPSY BREAST LT / PROCEDURE REASON: Abnormal mammogram of left breast * * * * Physician Interpretation * * * * RESULT: [facility] [address] [place] [id number] HISTORY: 33 year old patient presents for [...] Alexandra Son M.D. Electronically signed on: 07/11/2024 Ladle Repairman: SERGIO Transcrialfonzo Date/Time: Jul 11 2024 8:52A Dictated by: ALEXANDRA SON MD This examination was interpreted and the report reviewed and electronically signed by: ALEXANDRA SON MD on Jul 11 2024 9:45AM EST [facility] Radiology Study observation (narrative) [facility] DBT Breast - bilateral diagn ostic for implanton 07-05-2024 * * *Final Report* * * DATE OF EXAM: Jul 04 2024 11:59AM W 0627 - LINDA MELVIN ZAMBRANO / PROCEDURE [...] suspicious findings seen. DIVISION OF RADIOLOGY [facility] 07/05/2024 * * *Final Report* * * DATE OF EXAM: Jul 04 2024 11:59AM SSW 0627 - LINDA DIAG W AV TANMAY / PROCEDURE REASON: [...] Abi Asif M.D. Electronically signed on: 07/05/2024 Ladle Repairman: WILLIAM Transcribe Date/Time: Jul 05 2024 11:53A Dictated by: ABI ASIF MD This examination was interpreted and the report reviewed and electronically signed by: ABI ASIF MD on Jul 05 2024 11:58AM [facility] Panel Informationon 07-05 IMPRESSION: Finding 1: There [...] Abi Asif M.D. Electronically signed on: 07/05/2024 Ladle Repairman: [facility] Transcribe Date/Time: Jul 05 2024 11:53A Dictated by: ABI ASIF MD This examination was interpreted and the report reviewed and electronically signed by: ABI ASIF MD on Jul 05 2024 11:58AM [facility] DIVISION OF RADIOLOGY No Panel InformationOrdered By: Cc Provider on 07-05-2024 [facility] Breast - left limitedon 1 * * *Final Report* * * DATE OF EXAM: Jul 04 2024 12:12PM [facility] 0593 - LINDA BREAST LTD LT / [...] suspicious findings seen. DIVISION OF RADIOLOGY Provider, [facility] - 07/05/2024 * * *Final Report* * * DATE OF EXAM: Jul 04 2024 12:12PM W 0593 - [facility] BREAST [facility] LT / PROCEDURE REASON: Mass of [...] Abi Asif M.D. Electronically signed on: 07/05/2024 Ladle Repairman: WILLIAM Transcribe Date/Time: Jul 05 2024 11:53A Dictated by: ABI ASIF MD This examination was interpreted and the report reviewed and electronically signed by: ABI ASIF MD on Jul 05 2024 11:58AM EST [facility] CNOVon 07-04-2024 CNOV Office Visit ([facility]HLST ) SHAZIA CHOU ([id number]) 1990 F Date Time Provider Department 07/04/24 11:00 AM FATUMA TYLER [facility] During your visit today, we recorded the following information about you: Weight Height 83.9 kg 1.702 m Fatuma Tyler APRN.DESIGN TRANSFERRER 07/06/2024 8:25 AM Signed MEDICAL BREAST PATIENT NAME: Shazia Chou July 04, 2024 REFERRAL: She is self referred for an opinion regarding regarding LEFT breast painful lump and bloody nipple discharge HISTORY of PRESENT ILLNESS: Shazia Chou is a 33 year old premenopausal female who presents to the [facility] today for evaluation of left [...] Test performed by chemiluminescent immunoassay. Performed at [facility] [place] [address] She takes a multivitamin daily. BMD: No PERSONAL BREAST HISTORY: Breast biopsy: No Breast cysts: No Breast surgery: No Breast cancer: No CANCER SURVEILLANCE: Mammograms: Date in [facility]: 12/09/23; results - Negative-Left breast only Breast MRI: Date in [facility]: 06/10/22; results - Negative Colonoscopy: No RISK [...] was dis (more content not included)... [facility] DIAG W AV BILon 2023 [facility] DIAG W AV TANMAY * * *Final Report* * * DATE OF EXAM: Jul 04 2024 11:59AM [facility]W 0627 - [facility] DIAG W AV TANMAY / PROCEDURE [...] Abi Asif M.D. Electronically signed on: 07/05/2024 Ladle Repairman: WILLIAM Transcribe Date/Time: Jul 05 2024 11:53A Dictated by: ABI ASIF MD This examination was interpreted and the report reviewed and electronically signed by: ABI ASIF MD on Jul 05 2024 11:58AM EST [id number] [facility] Sanrad BREAST LTD LTon 07-04 [facility] Sanrad BREAST LTD LT * * *Final Report* * * DATE OF EXAM: Jul 04 2024 12:12PM SSW 0593 - [place] BREAST [employer] LT / PROCEDURE REASON: Mass of upper [...] has dense breast tissue. Interpreting Radiologist: Abi Asfi M.D. Electronically signed on: 07/05/2024 Ladle Repairman: WILLIAM Transcribe Date/Time: Jul 05 2024 11:53A Dictated by: ABI ASIF MD This examination was interpreted and the report reviewed and electronically signed by: ABI ASIF MD on Jul 05 2024 11:58AM EST [id number] Normal [facility] Panel Informationon 07-04 Radiology Study observation (narrative) [facility] CNOVon 07-01-2024 CNOV Office Visit (FPNRMO C) SHAZIA CHOU ([id number]) 1990 F Date Time Provider Department 07/01/24 11:00 AM [facility]IN [facility] During your visit today, we recorded the following information about you: Pulse Blood pressure Weight Height 72/minute 101/59 86.3 kg 1.702 eTvin Simon DO 07/01/2024 12:18 PM Signed [facility] Medicine Visit Assessment and Plan 1. Chest [...] rhythm with sinus arrhythmia at 73 BPM, LA interval 138 ms, normal QRS, poor quality [...] Memory: Cognition normal. Comments: Slightly anxious Tevin Carson DO 07/01/2024 11:41 AM Signed Try an extended [...] similar to (more content not included)... Normal [facility] ECG COMPLETEon 07-01-2024 ECG COMPLETE Ventricular Rate : 7 3 BPM Atrial Rate : 73 BPM P-R Interval : 138 ms QRS Duration : 84 ms Q-T Interval : 360 ms QTC Calculation(Bazett) : 396 ms Calculated P Westover : 26 degrees Calculated R [place] : 63 degrees Calculated T [place] : 38 degrees NORMAL SINUS RHYTHM WITH SINUS ARRHYTHMIA CANNOT EXCLUDE ANTERIOR MYOCARDIAL INFARCTION , AGE UNDETERMINED ABNORMAL ECG Confirmed by Aayush Tillman M.D. ([id number]) on 07/04/2024 10:25:09 PM NAME : SHAZIA CHOU PID : [id number] : 1990 Gender : Female Race : ORD : [id number] Procedure Date : Jul 01 2024 11:16:51 [...] Referred By : , Acquired by : LEXI HAMMOND, Romeo [facility] Ernesto 06-30-2024 CNPN Telephone ([employer]) SHAZIA CHOU ([id number]) 1990 F Date Time Provider Department 06/30/24 TYLERFATUMA [employer] During your visit today, we recorded the [...] had a mammogram and US done at [facility] recently because she felt a lump in [...] one another or not. 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 - ydwntadcqrvo-uwa-gpna-F A-vit K (BARIATRIC MULTIVITAMINS) 45 mg iron- 800 [...] Encounter Status:Closed by NALDO BORREGO on 07/01/24 [facility] ED Note-Physicianon 03-11-20 ED Note-Physician ED Note-Physician [...] and symmetry. No ataxia with finger-nose or uzgi-qd-pzfu. Intact sensation of bilateral upper and lower extremities. No Dysphasia. Psychiatric: Cooperative and appropriate Medical Decision Making Patient is a 33-year-old female who presents today for evaluation of her entire back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 CDP, FERI #### [facility] [address] [place] [address] Dynamic Balancer: Harpal Adair MD Lymphocytes (Bld) [#/Vol] 2.30 10*3/uL Normal 1.10-3.70 [facility] Comment on above: Performed By: #### F EBC, CDP, FERI #### [facility] [address] [place] [address] Dynamic Balancer: Harpal Adair MD Lymphocytes/100 WBC (Bld) 21 % Low 24-43 [facility] Comment on above: Performed By: #### F EBC, CDP, FERI #### [facility] [address] [place] [address] Dynamic Balancer: Harpal Adair MD MCH (RBC) [Entitic mass] 28.4 pg Normal 25.2-33.5 [facility] Comment on above: Performed By: #### F EBC, CDP, FERI #### [facility] [address] [place] [address] Dynamic Balancer: Harpal Adair MD MCHC (RBC) [Mass/Vol] 30.8 g/dL Normal 28.4-34.8 [facility] Comment on above: Performed By: #### F EBC, CDP, FERI #### [place] [address] Dynamic Balancer: Harpal Adair MD MCV (RBC) [Entitic vol] 92.2 fL Normal 82.6-102.9 [facility] Comment on above: Performed By: #### F EBC, CDP, FERI #### [facility] [address] [place] [address] Dynamic Balancer: Harpal Adair MD Monocytes (Bld) [#/Vol] 0.77 10*3/uL Normal 0.10-1.20 [facility] Comment on above: Performed By: #### F EBC, CDP, FERI #### [address] [address] Dynamic Balancer: Harpal Adair MD Monocytes/100 WBC (Bld) 7 % Normal 3-12 [facility] Comment on above: Performed By: #### F EBC, CDP, FERI #### [facility] [address] [place] [address] Dynamic Balancer: Harpal Adair MD Neutrophil (Seg) 69 % High 36-65 [facility] Comment on above: Performed By: #### F EBC, CDP, FERI #### [facility] [address] [place] [address] Dynamic Balancer: Harpal Adair MD NRBC Automated 0.0 per 100 WBC Normal 0.0 [facility] Comment on above: Performed By: #### F EBC CDP, FERI #### [address] [address] Dynamic Balancer: Harpal Adair MD Platelet mean volume (Bld) [Entitic vol] 11.4 fL Normal 8.1-13.5 [facility] Comment on above: Performed By: #### F EBC, CDP, FERI #### [address] [address] Dynamic Balancer: Harpal Adair MD Platelets (Bld) [#/Vol] 387 10*3/uL Normal 138-453 [facility] Comment on above: Performed By: #### F EBC CDP, FERI #### [address] [address] Dynamic Balancer: Harpal Adair MD RBC (Bld) [#/Vol] 3.98 10*6/uL Normal 3.95-5.11 [facility] Comment on above: Performed By: #### F EBC, CDP, FERI #### [facility] [address] [place] [address] Dynamic Balancer: aHrpal Adair MD RBC morphology finding Nom (Bld) ANISOCYTOSIS PRESENT Normal [facility] Comment on above: Performed By: #### F EBC, CDP, FERI #### [facility] [address] [place] [address] Dynamic Balancer: Harpal Adair MD WBC (Bld) [#/Vol] 11.1 10*3/uL Normal 3.5-11.3 [facility] Comment on above: Performed By: #### F EBC, CDP, FERI #### [facility] [address] [place] [phone] Dynamic Balancer: Harpal Adair MD Ferritinon 01-13-2024 Ferritin [Mass/Vol] 9 ng/mL Low 13-150 [facility] Comment on above: Result Comment: FERRITIN Reference Ranges: Adult Males 20 - 60 years: 30 - 400 ng/mL Adult females 17 - 60 years: 13 - 150 ng/mL Adults greater than 60 years: no established reference range Pediatrics: no established reference range Performed By: #### F EBShaneka CDP, FERI #### [employer] [facility] [address] [place] [address] Dynamic Balancer: Harpal Adair MD Iron Binding Cap.on 01-13-20 24 % Fe Saturation 9 % Low 20-55 [facility] Comment on above: Performed By: #### F EBShaneka CDP, FERI #### [employer] [address] [place] [address] Dynamic Balancer: Harpal Adair MD Iron [Mass/Vol] 37 ug/dL Normal 37-145 [facility] Comment on above: Performed By: #### F EBVALERIO Munroe, FERI #### [employer] [address] [place] [address] Dynamic Balancer: Harpal Adair MD Total Fe Binding Cap 390 ug/dL Normal 250-450 [facility] Comment on above: Performed By: #### F EBVALERIO Munroe, FERI #### [employer] [address] [place] [address] Dynamic Balancer: Harpal Adair MD Unbound Fe Bind Cap 353 ug/dL High 112-347 [facility] Comment on above: Performed By: #### F EBShaneka CDP, FERI #### [employer] [address] [place] [address] Dynamic Balancer: MD Ernesto Naylor 01-05-2024 [facility] SHAZIA CHOU ([id number]) 1990 F Date Time Provider Department 01/05/24 ELIA BAIRES [facility] During your visit today, we [...] 60 mg by mouth once daily. - ozwclnpwimsd-aop-vtcl-F A-vit K (BARIATRIC MULTIVITAMINS) 45 mg iron- 800 [...] Status:Closed by ELIA BAIRES on 01/05/24 Normal [facility] TOXICOLOGY SCRN W/CONF,URINE on 01-05-2024 Amphetamines Confirm (U) [Mass/Vol] Negative Negative [facility] Comment on above: Cutoff threshold at 1000 ng/mL. Barbiturates Urine Negative Negative [facility] Comment on above: Cutoff threshold at 200 ng/mL. Benzodiazepines Urine Negative Negative [facility] Comment on above: Cutoff threshold at 200 ng/mL. Cannabinoids Screen Ql (U) Sent for confirmation Abnormal Negative [facility] Comment on above: Cutoff threshold at 50 ng/mL. Cocaine Ql (U) Negative Negative [facility] Comment on above: Cutoff threshold at 300 ng/mL. Ethanol (U) [Mass/Vol] mg/dL NINF - 11 mg/dL [facility] Interpretation and review of laboratory results Abnormal [facility] Opiates Screen Ql (U) Negative Negative [facility] Comment on above: Cutoff threshold at 300 ng/mL. oxyCODONE cutoff Screen (U) [Mass/Vol] Negative Negative [facility] Comment on above: Cutoff threshold at 100 ng/mL. Phencyclidine Ql (U) Negative Negative [facility] Comment on above: Cutoff threshold at 25 ng/mL. Immunoassay screen only. Cross reactivity with other substances can occur with immunoassay screening. Detection of any drug(s) in this urine toxicology panel is presumptive only. These tests are for medical purposes only and should not be used for compliance monitoring, legal, or forensic use. [facility] CANNABINOID CONF, URon 01-03 Cannabinoids Confirm (U) [Mass/Vol] 153 ng/mL High <16 [facility] Comment on above: Order Comment: Speci men Type: URINE SPECIMENOrdering Facility: [facility] Address: [address] [place] [address] Result Comment: Tetr ahydrocannabinol carboxylic acid (THCA) is a metabolite of eawqu-9-fpuhohjziqexoixsvwvj which is the main active component of marijuana. Presence of THCA indicates use of marijuana. Performed By: #### C ANNCONFU ####[facility] [id number] [place] [address] [place] NOTE ([facility]) Normal [facility] Comment on above: Order Comment: Speci men Type: URINE SPECIMENOrdering Facility: [facility] Address: [address] [place] [address] Result Comment: This test is for medical use only. This test was developed and its performance characteristics determined by [facility] [place] ([facility] It has not been cleared or approved by the FDA. [facility] is regulated under CLIA as qualified to perform high-complexity testing. This test is used for clinical purposes. It should not be regarded as investigational or for research. Performed By: #### C ANNCONFU ####[facility] [id number] [address] [place] CNOVon 01-04-2024 CNOV Office Visit (FPNRMO C) SHAZIA CHOU ([id number]) 1990 F Date Time Provider Department 01/04/24 9:20 AM BAIRESCHELLY MCDOWELLNirav Cardenas [facility] During your visit today, we recorded the following information about you: Pulse Blood pressure Weight Height 92/minute 123/86 92.5 kg 1.702 m Elia Baires, DO 01/04/2024 2:25 PM Signed ASSESSMENT/PLAN: 1. [...] She says that she is originally from [facility] however came up to here [...] psychiatrist [facility] [place]. She also sees a counselor weekly. Current [...] in 1 (more content not included)... Normal [facility] SPECIMEN VALIDITY, URINEon 0 01-04-2024 CHROMATE,URINE <10 Normal <50 [facility] Comment on above: Order Comment: Speci men Type: URINE SPECIMENOrdering Facility: [facility] Address: [address] [place] [address] Performed By: #### L [id number] ####[facility] [id number] [place] [address] [place] CREATININE,URINE 33.7 mg/dL Normal 20.0-300.0 [facility] Comment on above: Order Comment: Speci men Type: URINE SPECIMENOrdering Facility: [facility] Address: [address] [place] [address] Performed By: #### L [id number] ####[facility] [id number] [place] [address] [place] NITRITES,URINE <50 Normal <500 [facility] Comment on above: Order Comment: Speci men Type: URINE SPECIMENOrdering Facility: [facility] Address: [address] [place] [address] Performed By: #### L [id number] ####[facility] [id number] [place] [address] [place] OXIDANTS,URINE 70 mg/L Normal <200 [facility] Comment on above: Order Comment: Speci men Type: URINE SPECIMENOrdering Facility: [facility] Address: [address] [place] [address] Performed By: #### L [id number] ####[facility] [id number] [place] [address] [place] pH (U) 5.6 [pH] Normal 4.5-8.0 [facility] Comment on above: Order Comment: Speci men Type: URINE SPECIMENOrdering Facility: [facility] Address: [address] [place] [address] Performed By: #### L [id number] ####[facility] [id number] [place] [address] [place] SPEC GRAVITY,UR 1.019 Normal 1.003-1.035 [facility] Comment on above: Order Comment: Speci men Type: URINE SPECIMENOrdering Facility: [facility] Address: [address] [place] [address] Performed By: #### L [id number] ####[facility] [id number] [place] [address] [place] SPECIMEN VALIDITY QUALITY Specimen quality results within acceptable limits Normal [facility] Comment on above: Order Comment: Speci men Type: URINE SPECIMENOrdering Facility: [facility] Address: [address] [place] [address] Performed By: #### L [id number] ####[facility] [id number] [place] [id number] [place] TOXICOLOGY SCRN W/CONF,URINE on 01-04-2024 Amphetamines Confirm (U) [Mass/Vol] Negative Normal Negative [facility] Comment on above: Order Comment: Speci men Type: URINE SPECIMENOrdering Facility: [facility] Address: [address] [place] [address] Result Comment: Cuto ff threshold at 1000 ng/mL. Performed By: #### U TOXRF ####[facility] [id number] [place] [address] [place] BARBITURATES, URINE Negative Normal Negative [facility] Comment on above: Order Comment: Speci men Type: URINE SPECIMENOrdering Facility: [facility] Address: [address] [place] [address] Result Comment: Cuto ff threshold at 200 ng/mL. Performed By: #### U TOXRF ####[facility] [id number] [place] [address] [place] BENZODIAZEPINES, UR Negative Normal Negative [facility] Comment on above: Order Comment: Speci men Type: URINE SPECIMENOrdering Facility: [facility] Address: [address] [place] [address] Result Comment: Cuto ff threshold at 200 ng/mL. Performed By: #### U TOXRF ####[facility]IA [id number] [place] [address] [place] Cannabinoids Screen Ql (U) Sent for confirmation Abnormal Negative [facility] Comment on above: Order Comment: Speci men Type: URINE SPECIMENOrdering Facility: [facility] Address: [address] [place] [address] Result Comment: Cuto ff threshold at 50 ng/mL. Performed By: #### U TOXRF ####[facility]IA [id number] [place] [address] [place] Cocaine Ql (U) Negative Normal Negative [facility] Comment on above: Order Comment: Speci men Type: URINE SPECIMENOrdering Facility: [facility] Address: [address] [place] [address] Result Comment: Cuto ff threshold at 300 ng/mL. Performed By: #### U TOXRF ####[facility]IA [id number] [place] [address] [place] Ethanol (U) [Mass/Vol] <11 Normal <11 Cl [facility] Comment on above: Order Comment: Speci men Type: URINE SPECIMENOrdering Facility: [facility] Address: [address] [place] [address] Performed By: #### U TOXRF ####[facility] [id number] [place] [address] [place] Opiates Screen Ql (U) Negative Normal Negative [facility] Comment on above: Order Comment: Speci men Type: URINE SPECIMENOrdering Facility: [facility] Address: [address] [place] [address] Result Comment: Cuto ff threshold at 300 ng/mL. Performed By: #### U TOXRF ####[facility] [id number] [address] [place] oxyCODONE cutoff Screen (U) [Mass/Vol] Negative Normal Negative [facility] Comment on above: Order Comment: Speci men Type: URINE SPECIMENOrdering Facility: [facility] Address: [address] [place] [address] Result Comment: Cuto ff threshold at 100 ng/mL. Performed By: #### U TOXRF ####[facility] [id number] [address] [place] Phencyclidine Ql (U) Negative Normal Negative [facility] Comment on above: Order Comment: Speci men Type: URINE SPECIMENOrdering Facility: [facility] Address: [address] [place] [address] Result Comment: Cuto ff threshold at 25 ng/mL. Performed By: #### U TOXRF ####[facility] [id number] [place] [address] [place] ED Noteon 2023 ED Note [id number]#1.00T IFF Normal [facility] Activated partial thrombopla stin time (aPTT) in platelet poor plasma by coagulation aOrdered By: Marii Christiansen on 12-10-2023 aPTT Coag (PPP) [Time] 28.8 s 25.1-36.5 [facility] Comment on above: A hematocrit value g reater than 55% may lead to inaccurate results in coagulation testing. Patients having hematocrit values >55% require a special collection tube for coagulation studies. Please contact the laboratory at [phone] for redraw instructions. Basophils Auto (Bld) [#/Vol] Ordered By: Marii Christiansen on 12-10-2023 Basophils (Bld) [#/Vol] 0.1 10*3/uL 0.0-0.2 [facility] Basophils/100 WBC Auto (Bld) Ordered By: Marii Christiansen on 12-10-2023 Basophils/100 WBC (Bld) 1.0 % . [facility] Calcium [Mass/volume] in Ser um or PlasmaOrdered By: Marii Christiansen on 12-10-2023 Calcium [Mass/Vol] 9.3 mg/dL 8.6-10.3 [facility] Carbon dioxide, total [Moles /volume] in Serum or PlasmaOrdered By: Marii Christiansen on 12-10-2023 CO2 [Moles/Vol] 26.2 mmol/L 21.0-31.0 [facility] Chloride [Moles/volume] in S tushar or PlasmaOrdered By: Marii Christiansen on 12-10-2023 Chloride [Moles/Vol] 108 mmol/L 98-107 [facility] Choriogonadotropin.beta subu nit [Units/volume] in Serum or PlasmaOrdered By: Marii Christiansen on 12-10-2023 HCG.beta subunit Qn Negative [facility] Creatine kinase [Enzymatic a ctivity/volume] in Serum or PlasmaOrdered By: Marii Christiansen on 12-10-2023 CK [Catalytic activity/Vol] 90 U/L 30-223 [facility] Creatinine [Mass/volume] in Serum or PlasmaOrdered By: Marii Christiansen on 12-10-2023 Creatinine [Mass/Vol] 0.63 mg/dL 0.60-1.20 [facility] Eosinophils Auto (Bld) [#/Vo l]Ordered By: Marii Christiansen on 12-10-2023 Eosinophils (Bld) [#/Vol] 0.1 10*3/uL 0.0-0.45 [facility] Eosinophils/100 WBC Auto (Bl d)Ordered By: Marii Christiansen on 12-10-2023 Eosinophils/100 WBC (Bld) 1.7 % . [facility] Erythrocyte distribution wid th Auto (RBC) [Ratio]Ordered By: Marii Christiansen on 12-10-2023 Erythrocyte distribution width (RBC) [Ratio] 18.2 % 11.9-15.3 [facility] Glucose [Mass/volume] in Ser um or PlasmaOrdered By: Marii Christiansen on 12-10-2023 Glucose [Mass/Vol] 84 mg/dL 70-100 [facility] Comment on above: ADA recommended refe rence rangeRandom Glucose Reference Range is dependent on time and content of last meal. Glucose of more than 200 mg/dL in a nonstressed, ambulatory subject supports the diagnosis of Diabetes Mellitus. Hematocrit Auto (Bld) [Volum e fraction]Ordered By: Marii Christiansen on 12-10-2023 Hematocrit (Bld) [Volume fraction] 34.4 % 34.0-46.4 [facility] Hemoglobin [Mass/volume] in BloodOrdered By: Marii Christiansen on 12-10-2023 Hemoglobin (Bld) [Mass/Vol] 11.2 g/dL 11.8-15.4 [facility] INR in Platelet poor plasma by Coagulation assayOrdered By: Marii Christiansen on 12-10-2023 INR Coag (PPP) [Relative time] 1.0 {INR} [facility] Comment on above: INR Therapeutic Rang [...] RBC Auto (Bld) [#/Vol] 7.1 10*3/uL 3.8-11.6 [facility] Lymphocytes Auto (Bld) [#/Vo l]Ordered By: Marii Christiansen on 12-10-2023 Lymphocytes (Bld) [#/Vol] 1.6 10*3/uL 1.00-4.8 [facility] Lymphocytes/100 WBC Auto (Bl d)Ordered By: Marii Christiansen on 12-10-2023 Lymphocytes/100 WBC (Bld) 21.9 % . [facility] MCH Auto (RBC) [Entitic mass ]Ordered By: Marii Christiansen on 12-10-2023 MCH (RBC) [Entitic mass] 28.8 pg 24.7-34.3 [facility] MCHC Auto (RBC) [Mass/Vol]Or dered By: Marii Christiansen on 12-10-2023 MCHC (RBC) [Mass/Vol] 32.5 g/dL 32.0-35.0 [facility] MCV Auto (RBC) [Entitic vol] Ordered By: Marii Christiansen on 12-10-2023 MCV (RBC) [Entitic vol] 88.7 fL 80-100 [facility] Magnesium [Mass/volume] in S tushar or PlasmaOrdered By: Marii Christiansen on 12-10-2023 Magnesium [Mass/Vol] 1.9 mg/dL 1.9-2.7 [facility] Monocyte distribution width [Entitic volume] in Blood by AutomatedOrdered By: Marii Christiansen on 12-10-2023 Monocyte distribution width Auto (Bld) [Entitic vol] 16.94 % 0.00-20.00 [facility] Monocytes Auto (Bld) [#/Vol] Ordered By: Marii Christiansen on 12-10-2023 Monocytes (Bld) [#/Vol] 0.5 10*3/uL 0.0-0.8 [facility] Monocytes/100 WBC Auto (Bld) Ordered By: Marii Christiansen on 12-10-2023 Monocytes/100 WBC (Bld) 6.4 % . [facility] Natriuretic peptide B [Mass/ Vol]Ordered By: Marii Christiansen on 12-10-2023 Natriuretic peptide B (Bld) [Mass/Vol] 12.0 pg/mL 5-100 [facility] Neutrophils Auto (Bld) [#/Vo l]Ordered By: Marii Christiansen on 12-10-2023 Neutrophils (Bld) [#/Vol] 4.9 10*3/uL 1.8-7.7 [facility] Neutrophils/100 WBC Auto (Bl d)Ordered By: Marii Christiansen on 12-10-2023 Neutrophils/100 WBC (Bld) 69.0 % . [facility] No Panel InformationOrdered By: Marii Christiansen on 12-10-2023 Estimated GFR (CKD-EPI) > 60.0 mL/Min [facility] Creatinine Clearance (Chem 144.76 [facility] Nucleated erythrocytes [Pres ence] in Blood by Automated countOrdered By: Marii Christiansen on 12-10-2023 Nucleated RBC Auto Ql (Bld) 0.1 /100{WBC} 0-0.5 [facility] Phosphate [Mass/volume] in S tushar or PlasmaOrdered By: Marii Christiansen on 12-10-2023 Phosphate [Mass/Vol] 3.7 mg/dL 2.5-4.5 [facility] Platelet mean volume Auto (B ld) [Entitic vol]Ordered By: Marii Christiansen on 12-10-2023 Platelet mean volume (Bld) [Entitic vol] 9.2 fL 6.3-10.7 [facility] Platelets Auto (Bld) [#/Vol] Ordered By: Marii Christiansen on 12-10-2023 Platelets (Bld) [#/Vol] 331 10*3/uL 150-450 [facility] Potassium [Moles/volume] in Serum or PlasmaOrdered By: Marii Christiansen on 12-10-2023 Potassium [Moles/Vol] 4.0 mmol/L 3.5-5.1 [facility] Prothrombin time (PT)Ordered By: Marii Christiansen on 12-10-2023 PT Coag (PPP) [Time] 11.3 s 9.0-12.9 [facility] Comment on above: A hematocrit value g reater than 55% may lead to inaccurate results in coagulation testing. Patients having hematocrit values >55% require a special collection tube for coagulation studies. Please contact the laboratory at [phone] for redraw instructions. RBC Auto (Bld) [#/Vol]Ordere d By: Marii Christiansen on 12-10-2023 RBC (Bld) [#/Vol] 3.88 10*6/uL 3.60-5.00 [facility] Serum or plasma anion gap de terminationOrdered By: Marii Christiansen on 12-10-2023 Anion gap [Moles/Vol] 9.8 mmol/L 6.0-15.0 [facility] Sodium [Moles/volume] in Ser um or PlasmaOrdered By: Marii Christiansen on 12-10-2023 Sodium [Moles/Vol] 140 mmol/L 136-145 [facility] Thyrotropin [Units/volume] i n Serum or PlasmaOrdered By: Marii Christiansen on 12-10-2023 TSH Qn 0.61 m[IU]/L 0.45-5.33 [facility] Thyroxine (T4) free [Mass/vo lume] in Serum or PlasmaOrdered By: Marii Christiansen on 12-10-2023 Free T4 [Mass/Vol] 0.82 ng/dL 0.61-1.12 [facility] Troponin I.cardiac [Mass/vol ume] in Serum or Plasma by Detection limit <= 0.01 ng/Ordered By: Marii Christiansen on 12-10-2023 Troponin I.cardiac DL <= 0.01 ng/mL [Mass/Vol] < 2.3 pg/mL 0.0-15.0 [facility] Urea nitrogen [Mass/volume] in Serum or PlasmaOrdered By: Marii Christiansen on 12-10-2023 Urea nitrogen [Mass/Vol] 14 mg/dL 7 [facility] WBC Auto (Bld) [#/Vol]Ordere d By: Marii Christiansen on 12-10-2023 WBC (Bld) [#/Vol] 7.1 10*3/uL 3.8-11.6 [facility] Consent for Treatmenton 11-13 Consent for Treatment [id number]#[id number] IFF Normal [facility] [place] Mamm Diag w/CAD if perf a [...] very important to your health. The current [employer] and National Comprehensive Cancer [...] Category 1-Negative Recommendation: Normal interval follow-up Romeo [facility] US Breast Unilateral Lt Comp handy 12-09-2023 US Breast Unilateral Lt Complete Exam Date/Time: 12/09/2023 10:07 EDT Reason for Exam: N63.21 Report PLEASE REFER TO THE MAMMOGRAM REPORT. Ordering Provider: Jennie Durand FINAL REPORT Dictated: 12/09/2023 4:28 pm Mychal Cabezas M.D. Signed (Electronic Signature): 12/09/2023 4:28 pm Signed by: Mychal Cabezas M.D. Transcribed by: MARCO Technologist: KYLE Walters [facility] Physician Orderon 12-08-2023 Physician Order [id number]#1.00 TIFF Normal [facility] CT ABDOMEN PELVIS W IV CONTR Melba [...] Jacob Dillon DO 10/25/23 Final result Normal [facility] CBC panel Auto (Bld)on 08-31 Erythrocyte distribution width (RBC) [Ratio] 14.7 % Normal 11.5-15.0 [facility] Comment on above: Order Comment: Philip birmingham Type: BLOOD SPECIMEN Ordering Facility: [facility] Address: [address] [place] [address] Performed By: #### 5 8410-2 #### [facility] CLIA [id number] [address] [place] [address] [place] Hematocrit (Bld) [Volume fraction] 36.9 % Normal 36.0-46.0 [facility] Comment on above: Order Comment: Philip birmingham Type: BLOOD SPECIMEN Ordering Facility: [facility] Address: [address] [place] [address] Performed By: #### 5 8410-2 #### [facility] CLIA [id number] [address] [place] [address] [place] Hemoglobin (Bld) [Mass/Vol] 11.7 g/dL Normal 11.5-15.5 [facility] Comment on above: Order Comment: Philip birmingham Type: BLOOD SPECIMEN Ordering Facility: [facility] Address: [address] [place] [address] Performed By: #### 5 8410-2 #### [facility] CLIA [id number] [address] [place] [address] [place] MCH (RBC) [Entitic mass] 29.8 pg Normal 26.0-34.0 [facility] Comment on above: Order Comment: Speci men Type: BLOOD SPECIMEN Ordering Facility: [facility] Address: [address] [place] [address] Performed By: #### 5 8410-2 #### [facility] CLIA [id number] [address] [place] [address] [place] MCHC (RBC) [Mass/Vol] 31.7 g/dL Normal 30.5-36.0 [facility] Comment on above: Order Comment: Speci men Type: BLOOD SPECIMEN Ordering Facility: [facility] Address: [address] [place] [address] Performed By: #### 5 8410-2 #### [facility] CLIA [id number] [address] [place] [address] [place] MCV (RBC) [Entitic vol] 93.9 fL Normal 80.0-100.0 [facility] Comment on above: Order Comment: Speci men Type: BLOOD SPECIMEN Ordering Facility: [facility] Address: [address] [place] [address] Performed By: #### 5 8410-2 #### [facility] CLIA [id number] [address] [place] [address] [place] Nucleated RBC (Bld) [#/Vol] 10*3/uL Normal <0.01 [facility] Comment on above: Order Comment: Speci men Type: BLOOD SPECIMEN Ordering Facility: [facility] Address: [address] [place] [address] Performed By: #### 5 8410-2 #### [facility] CLIA [id number] [address] [place] [address] [place] Platelet mean volume (Bld) [Entitic vol] 11.1 fL Normal 9.0-12.7 [facility] Comment on above: Order Comment: Speci men Type: BLOOD SPECIMEN Ordering Facility: [facility] Address: [address] [place] [address] Performed By: #### 5 8410-2 #### [facility] CLIA [id number] [address] [place] [address] [place] Platelets (Bld) [#/Vol] 297 10*3/uL Normal 150-400 [facility] Comment on above: Order Comment: Speci men Type: BLOOD SPECIMEN Ordering Facility: [facility] Address: [address] [place] [address] Performed By: #### 5 8410-2 #### [facility] CLIA [id number] [place] [address] [place] RBC (Bld) [#/Vol] 3.93 10*6/uL Normal 3.90-5.20 [facility] Comment on above: Order Comment: Speci men Type: BLOOD SPECIMEN Ordering Facility: [facility] Address: [address] [place] [address] Performed By: #### 5 8410-2 #### [facility] CLIA [id number] [address] [place] [address] [place] WBC (Bld) [#/Vol] 6.82 10*3/uL Normal 3.70-11.00 [facility] Comment on above: Order Comment: Speci men Type: BLOOD SPECIMEN Ordering Facility: [facility] Address: [address] [place] [address] Performed By: #### 5 8410-2 #### [facility] CLIA [id number] [address] [place] [address] [place] Comprehensive metabolic 2000 panelon 08-31-2023 Albumin [Mass/Vol] 4.4 g/dL Normal 3.9-4.9 [facility] Comment on above: Order Comment: Speci men Type: BLOOD SPECIMEN Ordering Facility: [facility] Address: [address] [place] [address] Performed By: #### L IPNF, 54397-5 #### [facility] CLIA [id number] [address] [place] [address] [place] ALP [Catalytic activity/Vol] 75 U/L Normal 34-123 [facility] Comment on above: Order Comment: Speci men Type: BLOOD SPECIMEN Ordering Facility: [facility] Address: [address] [place] [address] Performed By: #### L IPNF, #### [facility] CLIA [id number] [address] [place] [address] [place] ALT [Catalytic activity/Vol] 16 U/L Normal 7-38 [facility] Comment on above: Order Comment: Speci men Type: BLOOD SPECIMEN Ordering Facility: [facility] Address: [address] [place] [address] Performed By: #### L IPNF, #### [facility] CLIA [id number] [address] [place] [address] [place] Anion gap [Moles/Vol] 11 mmol/L Normal 9-18 [facility] Comment on above: Order Comment: Speci men Type: BLOOD SPECIMEN Ordering Facility: [facility] Address: [address] [place] [address] Performed By: #### L IPNF, #### [facility] CLIA [id number] [address] [place] [address] [place] AST [Catalytic activity/Vol] 21 U/L Normal 13-35 [facility] Comment on above: Order Comment: Speci men Type: BLOOD SPECIMEN Ordering Facility: [facility] Address: [address] [place] [address] Performed By: #### L IPNF, #### [facility] CLIA [id number] [address] [place] [address] [place] Bilirubin [Mass/Vol] 0.2 mg/dL Normal 0.2-1.3 [facility] Comment on above: Order Comment: Speci men Type: BLOOD SPECIMEN Ordering Facility: [facility] Address: [address] [place] [address] Performed By: #### L IPNF, 05064-1 #### [facility] CLIA [id number] [address] [place] [address] [place] Calcium [Mass/Vol] 9.7 mg/dL Normal 8.5-10.2 [facility] Comment on above: Order Comment: Speci men Type: BLOOD SPECIMEN Ordering Facility: [facility] Address: [address] [place] [address] Performed By: #### L IPNF, 10769-4 #### [facility] CLIA [id number] [address] [place] [address] [place] Chloride [Moles/Vol] 106 mmol/L High 97-105 [facility] Comment on above: Order Comment: Speci men Type: BLOOD SPECIMEN Ordering Facility: [facility] Address: [address] [place] [address] Performed By: #### L IPNF, 50378-0 #### [facility] CLIA [id number] [address] [place] [address] [place] CO2 [Moles/Vol] 25 mmol/L Normal 22-30 [facility] Comment on above: Order Comment: Speci men Type: BLOOD SPECIMEN Ordering Facility: [facility] Address: [address] [place] [address] Performed By: #### L IPNF, 75983-9 #### [facility] CLIA [id number] [address] [place] [address] [place] Creatinine [Mass/Vol] 0.55 mg/dL Low 0.58-0.96 [facility] Comment on above: Order Comment: Speci men Type: BLOOD SPECIMEN Ordering Facility: [facility] Address: [address] [place] [address] Performed By: #### L IPNF, 88520-0 #### [facility] CLIA [id number] [address] [place] [address] [place] Creatinine and Glomerular filtration rate.predicted panel (S/P/Bld) 124 mL/min/1.73m??? Normal >=60 [facility] Comment on above: Order Comment: Speci men Type: BLOOD SPECIMEN Ordering Facility: [facility] Address: [address] [place] [address] Result Comment: Brenda mated Glomerular Filtration Rate [...] actual GFR. Performed By: #### L IPNF, 76492-2 #### [facility] CLIA [id number] [address] [place] [address] [place] Glucose [Mass/Vol] 93 mg/dL Normal 74-99 [facility] Comment on above: Order Comment: Philip birmingham Type: BLOOD SPECIMEN Ordering Facility: [facility] Address: [address] [place] [address] [address]: The [place] [employer] [employer] (ADA) provides guidance for cutoff [...] Standards of Medical Care in Diabetes 2016, [employer] [place] [employer]. Diabetes Care. 2016.39(Suppl 1). Performed By: #### L IPNF, 82252-5 #### [facility] CLIA [id number] [address] [place] [address] [place] Potassium [Moles/Vol] 4.7 mmol/L Normal 3.7-5.1 [facility] Comment on above: Order Comment: Philip birmingham Type: BLOOD SPECIMEN Ordering Facility: [facility] Address: [address] [place] [address] Performed By: #### L IPNF, 59118-2 #### [facility] CLIA [id number] [address] [place] [address] [place] Protein [Mass/Vol] 7.3 g/dL Normal 6.3-8.0 [facility] Comment on above: Order Comment: Philip birmingham Type: BLOOD SPECIMEN Ordering Facility: [facility] Address: [address] [place] [address] Performed By: #### L IPNF, 97881-2 #### [facility] CLIA [id number] [address] [place] [address] [place] Sodium [Moles/Vol] 142 mmol/L Normal 136-144 [facility] Comment on above: Order Comment: Speci men Type: BLOOD SPECIMEN Ordering Facility: [facility] Address: [address] [place] [address] Performed By: #### L IPNF, 04271-3 #### [facility] CLIA [id number] [address] [place] [address] [place] Urea nitrogen [Mass/Vol] 9 mg/dL Normal 7-21 [facility] Comment on above: Order Comment: Speci men Type: BLOOD SPECIMEN Ordering Facility: [facility] Address: [address] [place] [address] Performed By: #### L IPNF, 50744-1 #### [facility] CLIA [id number] [address] [place] [address] [place] LIPID PANEL, NONFASTINGon Cholesterol [Mass/Vol] 154 mg/dL Normal <200 [facility] Comment on above: Order Comment: Speci men Type: BLOOD SPECIMEN Ordering Facility: [facility] Address: [address] [place] [address] Result Comment: <200 mg/dL, Desirable 200-239 mg/dL, Borderline high >239 mg/dL, High Performed By: #### L IPNF, 63232-4 #### [facility] CLIA [id number] [address] [place] [address] [place] HDL CHOLESTEROL, NF 69 mg/dL Normal >39 [facility] Comment on above: Order Comment: Speci men Type: BLOOD SPECIMEN Ordering Facility: [facility] Address: [address] [place] [address] Result Comment: 40-5 9 mg/dL, Acceptable >59 mg/dL, High: Negative risk factor for coronary heart disease <40 mg/dL, Low: Positive risk factor for coronary heart disease Performed By: #### L IPNF, #### [facility] CLIA [id number] [address] [place] [address] [place] LDL CHOLESTEROL, NF 66 mg/dL Normal <100 [facility] Comment on above: Order Comment: Cecilarielle birmingham Type: BLOOD SPECIMEN Ordering Facility: [facility] Address: [address] [place] [address] Result Comment: <100 mg/dL, Optimal 100-129 mg/dL, Near optimal/above optimal 130-159 mg/dL, Borderline high 160-189 mg/dL, High >189 mg/dL, Very high Secondary prevention optimal LDL Cholesterol levels are recommended to be < 70 mg/dL Performed By: #### L IPNF, 66730-1 #### [facility] CLIA [id number] [address] [place] [address] [place] [facility] LDL/HDL RATIO, NF 0.96 mg/dL Normal <2.54 [facility] Comment on above: Order Comment: Philip valencia Type: BLOOD SPECIMEN Ordering Facility: [facility] Address: [address] [place] [address] Result Comment: Refe rence: 1. National Cholesterol Education Program ATP III Guideline At-A-Glance Quick Desk Reference: National Heart, Lung, and Blood [place]. National Institutes of Health. 2001: NIH Publication No. 01-3305. 2. An International Atherosclerosis Society position paper: global recommendations for the management of dyslipidemia: executive summary, Atherosclerosis. 2014: 232(2):410-413. Performed By: #### L IPNF, 98010-1 #### [facility] CLIA [id number] [address] [place] [address] [facility] NON HDL CHOL, NF 85 mg/dL Normal <130 [facility] Comment on above: Order Comment: Cecilarielle birmingham Type: BLOOD SPECIMEN Ordering Facility: [facility] Address: [address] [place] [address] Result Comment: <130 mg/dL, Optimal 130-159 mg/dL, Near optimal/above optimal 160-189 mg/dL, Borderline high 190-219 mg/dL, High >219 mg/dL, Very high Secondary prevention optimal non HDL Cholesterol levels are recommended to be <100 mg/dL Performed By: #### L IPNF, 60536-2 #### [facility] CLIA [id number] [address] [place] [address] [place] T CHOL/HDL RATIO NF 2.23 mg/dL Normal <5.10 [facility] Comment on above: Order Comment: Speci men Type: BLOOD SPECIMEN Ordering Facility: [facility] Address: [address] [place] [address] Performed By: #### L IPNF, 30822-4 #### [facility] CLIA [id number] [place] [address] [place] [facility] TRIGLYCERIDES, NF 96 mg/dL Normal <150 [facility] Comment on above: Order Comment: Speci men Type: BLOOD SPECIMEN Ordering Facility: [facility] Address: [address] [place] [address] Result Comment: <150 mg/dL, Normal 150-199 mg/dL, Borderline high 200-499 mg/dL, High >499 mg/dL, Very high Performed By: #### L IPNF, #### [facility] CLIA [id number] [address] [place] [address] [place] VLDL CHOLESTEROL, NF 19 mg/dL Normal <30 [facility] Comment on above: Order Comment: Speci men Type: BLOOD SPECIMEN Ordering Facility: [facility] Address: [address] [place] [address] Performed By: #### L IPNF, #### [facility] CLIA [id number] [address] [place] [address] [place] PHOSPHATIDYLETHANOL (PETH)on 08-31-2023 EER PETH See Note Normal [facility] Comment on above: Order Comment: Speci men Type: BLOOD SPECIMEN Ordering Facility: [facility] Address: [address] [place] [address] Result Comment: Auth orized individuals can access the Internal [employer] Enhanced Report using the following link: [email or web address] Performed By: #### P ETH #### [facility] CLIA [id number] [address] [place] [address] PETH 16:0/18.2 (PLPETH) 244 ng/mL Normal [facility] Comment on above: Order Comment: Speci men Type: BLOOD SPECIMEN Ordering Facility: [facility] Address: [address] [place] [address] Result Comment: Refe rence ranges are not well established. Performed By: #### P ETH #### [facility] CLIA [id number] [address] [place] [address] PETH 16:0/18:1 (POPETH) 169 ng/mL Normal [facility] Comment on above: Order Comment: Speci men Type: BLOOD SPECIMEN Ordering Facility: [facility] Address: [address] [place] [address] Result Comment: PEth 16:0/18:1 (POPEth) Less than 10 ng/mL............Not detected Less than 20 ng/mL............Abstinence or light alcohol consumption 20 - 200 ng/mL................Moderate alcohol consumption Greater than 200 ng/mL........Heavy alcohol consumption or chronic alcohol use (Reference: Sophie Gonzalez and Crystal Helm 2018 J. Forensic Sci) Performed By: #### P ETH #### [facility] CLIA [id number] [address] [place] [address] PETH INTERPRETATION See Note Normal [facility] Comment on above: Order Comment: Speci men Type: BLOOD SPECIMEN Ordering Facility: [facility] Address: [address] [place] [address] Result Comment: Phos phatidylethanol (PEth) is a [...] developed and its performance characteristics determined by [facility]. It has not been cleared or approved by the U.S. Food and Drug Administration. This test was performed in a CLIA-certified laboratory and is intended for clinical purposes. Performed By: [facility] [address] [place] [address] Tissue Rewinder: Osmar Salcido MD, PhD CLIA Number: [id number] Performed By: #### P ETH #### [facility] CLIA [id number] [address] [place] [address] MRI ABDOMEN W WO CONTRAST MR CPon [...] Troy Bond MD 08/20/23 Final result Normal [facility] Vitamin Aon 08-16-2023 Interpretation Normal Normal [facility] Comment on above: Result Comment: (NOT E) This test was developed and its performance characteristics determined by [facility]. It has not been cleared or approved by the US Food and Drug Administration. This test was performed in a CLIA certified laboratory and is intended for clinical purposes. Performed By: [facility] [address] [place] [address] Tissue Rewinder: Osmar Salcido MD, PhD CLIA Number: [id number] Performed By: #### P THNCA, FEBC, FERI, GLYHGB, VD25 #### [facility] [address] [place] [address] Dynamic Balancer: Harpal Adair MD #### ARIAN OLIVOTB1, AZN #### [facility] [address] [place] [address] Dynamic Balancer: Patricio Zuñiga MD #### CP, MG, CDP #### [facility] [address] [place] [address] Dynamic Balancer: Hilton Armenta MD Retinol (Vitamin A) 0.60 mg/L Normal 0.30-1.20 [facility] Comment on above: Performed By: #### P THNCA, FEBC, FERI, GLYHGB, VD25 #### [facility] [address] [place], [place] [id number] Dynamic Balancer: Harpal Adair MD #### PALLAVI, ARIANTB1, AZN #### [facility] [address] [place] [address] Dynamic Balancer: Patricio Zuñiga MD #### ANGEL, MG, CDP #### [facility] [address] [place] [address] [place] [address] Dynamic Balancer: Hilton Armenta MD Retinyl Palmitate <0.02 Normal 0.00-0.10 [facility] Comment on above: Performed By: #### P THHAYDEEA, FEBC, FERI, GLYHGB, VD25 #### [facility] [address] [place] [address] [id number] Dynamic Balancer: Harpal Adair MD #### AGNES OLIVO, AZN #### [facility] [address] [place], [place] [id number] Dynamic Balancer: Patricio Zuñiga MD #### ANGEL, MG, CDP #### [address] [place] [address] Dynamic Balancer: Hilton Armenta MD Alanine aminotransferase [En zymatic activity/volume] in Serum or PlasmaOrdered By: Yoli Norris on 08-15-2023 ALT [Catalytic activity/Vol] 18 U/L 7-52 [facility] Albumin [Mass/volume] in Ser um or Plasma by Bromocresol green (BCG) dye binding methoOrdered By: Yoli Norris on 08-15-2023 Albumin BCG dye [Mass/Vol] 4.6 g/dL 3.5-5.7 [facility] Alkaline phosphatase [Enzyma tic activity/volume] in Serum or PlasmaOrdered By: Yoli Norris on 08-15-2023 ALP [Catalytic activity/Vol] 77 U/L 34-104 [facility] Aspartate aminotransferase [ Enzymatic activity/volume] in Serum or PlasmaOrdered By: Yoli Norris on 08-15-2023 AST [Catalytic activity/Vol] 18 U/L 13-39 [facility] Basophils Auto (Bld) [#/Vol] Ordered By: Yoli Norris on 08-15-2023 Basophils (Bld) [#/Vol] 0.1 10*3/uL 0.0-0.2 [facility] Basophils/100 WBC Auto (Bld) Ordered By: Yoli Norris on 08-15-2023 Basophils/100 WBC (Bld) 0.5 % . [facility] Bilirubin Test strip Ql (U)O rdered By: Yoli Norris on 08-15-2023 Bilirubin Ql (U) Negative Negative [facility] Bilirubin.direct [Mass/volum e] in Serum or PlasmaOrdered By: Yoli Norris on 08-15-2023 Bilirubin.direct [Mass/Vol] 0.00 mg/dL 0.03-0.18 [facility] Comment on above: If the DBIL is less than 0.1, IBIL is not able to becalculated. Bilirubin.total [Mass/volume ] in Serum or PlasmaOrdered By: Yoli Norris on 08-15-2023 Bilirubin [Mass/Vol] 0.3 mg/dL 0.3-1.0 [facility] Calcium [Mass/volume] in Ser um or PlasmaOrdered By: Yoli Norris on 08-15-2023 Calcium [Mass/Vol] 9.8 mg/dL 8.6-10.3 [facility] Carbon dioxide, total [Moles /volume] in Serum or PlasmaOrdered By: Yoli Norris on 08-15-2023 CO2 [Moles/Vol] 21.8 mmol/L 21.0-31.0 [facility] Chloride [Moles/volume] in S tushar or PlasmaOrdered By: Yoli Norris on 08-15-2023 Chloride [Moles/Vol] 109 mmol/L 98-107 [facility] Color Auto (U)Ordered By: Maribel Norris on 08-15-2023 Color (U) Yellow Yellow [facility] Creatinine [Mass/volume] in Serum or PlasmaOrdered By: Yoli Norris on 08-15-2023 Creatinine [Mass/Vol] 0.76 mg/dL 0.60-1.20 [facility] Eosinophils Auto (Bld) [#/Vo l]Ordered By: Yoli Norris on 08-15-2023 Eosinophils (Bld) [#/Vol] 0.2 10*3/uL 0.0-0.45 [facility] Eosinophils/100 WBC Auto (Bl d)Ordered By: Yoli Norris on 08-15-2023 Eosinophils/100 WBC (Bld) 2.1 % . [facility] Erythrocyte distribution wid th Auto (RBC) [Ratio]Ordered By: Yoli Norris on 08-15-2023 Erythrocyte distribution width (RBC) [Ratio] 15.1 % 11.9-15.3 [facility] Globulin Calc (S) [Mass/Vol] Ordered By: Yoli Norris on 08-15-2023 Globulin (S) [Mass/Vol] 3.2 g/dL [facility] Glucose [Mass/volume] in Ser um or PlasmaOrdered By: Yoli Norris on 08-15-2023 Glucose [Mass/Vol] 85 mg/dL 70-100 [facility] Comment on above: ADA recommended refe rence rangeRandom Glucose Reference Range is dependent on time and content of last meal. Glucose of more than 200 mg/dL in a nonstressed, ambulatory subject supports the diagnosis of Diabetes Mellitus. HCG ( test) IA.rapi d Ql (U)Ordered By: Yoli Norris on 08-15-2023 HCG ( test) Ql (U) Negative [facility] Hematocrit Auto (Bld) [Volum e fraction]Ordered By: Yoli Norris on 08-15-2023 Hematocrit (Bld) [Volume fraction] 37.2 % 34.0-46.4 [facility] Hemoglobin [Mass/volume] in BloodOrdered By: Yoli Norris on 08-15-2023 Hemoglobin (Bld) [Mass/Vol] 12.2 g/dL 11.8-15.4 [facility] Ketones Auto test strip (U) [Mass/Vol]Ordered By: Yoli Norris on 08-15-2023 Ketones (U) [Mass/Vol] Negative Negative Fi [facility] Leukocytes [#/volume] correc caitlin for nucleated erythrocytes in Blood by Automated counOrdered By: Yoli Norris on 08-15-2023 WBC corrected for nucl RBC Auto (Bld) [#/Vol] 11.3 10*3/uL 3.8-11.6 [facility] Lipase [Enzymatic activity/v olume] in Serum or PlasmaOrdered By: Yoli Norris on 08-15-2023 Lipase [Catalytic activity/Vol] 32.0 U/L 11.0-82.0 [facility] Lymphocytes Auto (Bld) [#/Vo l]Ordered By: Yoli Norris on 08-15-2023 Lymphocytes (Bld) [#/Vol] 2.0 10*3/uL 1.00-4.8 [facility] Lymphocytes/100 WBC Auto (Bl d)Ordered By: Yoli Norris on 08-15-2023 Lymphocytes/100 WBC (Bld) 17.8 % . [facility] MCH Auto (RBC) [Entitic mass ]Ordered By: Yoli Norris on 08-15-2023 MCH (RBC) [Entitic mass] 30.2 pg 24.7-34.3 [facility] MCHC Auto (RBC) [Mass/Vol]Or dered By: Yoli Norris on 08-15-2023 MCHC (RBC) [Mass/Vol] 32.7 g/dL 32.0-35.0 [facility] MCV Auto (RBC) [Entitic vol] Ordered By: Yoli Norris on 08-15-2023 MCV (RBC) [Entitic vol] 92.4 fL 80-100 [facility] Monocyte distribution width [Entitic volume] in Blood by AutomatedOrdered By: Yoli Norris on 08-15-2023 Monocyte distribution width Auto (Bld) [Entitic vol] 15.46 % 0.00-20.00 [facility] Monocytes Auto (Bld) [#/Vol] Ordered By: Yoli Norris on 08-15-2023 Monocytes (Bld) [#/Vol] 0.6 10*3/uL 0.0-0.8 [facility] Monocytes/100 WBC Auto (Bld) Ordered By: Yoli Norris on 08-15-2023 Monocytes/100 WBC (Bld) 5.0 % . [facility] Neutrophils Auto (Bld) [#/Vo l]Ordered By: Yoli Norris on 08-15-2023 Neutrophils (Bld) [#/Vol] 8.4 10*3/uL 1.8-7.7 [facility] Neutrophils/100 WBC Auto (Bl d)Ordered By: Yoli Norris on 08-15-2023 Neutrophils/100 WBC (Bld) 74.6 % . [facility] Nitrite Test strip Ql (U)Ord ered By: Yoli Norris on 08-15-2023 Nitrite Ql (U) Negative Negative [facility] No Panel InformationOrdered By: Yoli Norris on 08-15-2023 Estimated GFR (CKD-EPI) > 60.0 mL/Min [facility] Creatinine Clearance (Chem 117.62 [facility] Nucleated erythrocytes [Pres ence] in Blood by Automated countOrdered By: Yoli Norris on 08-15-2023 Nucleated RBC Auto Ql (Bld) 0.0 /100{WBC} 0-0.5 [facility] Platelet mean volume Auto (B ld) [Entitic vol]Ordered By: Yoli Norris on 08-15-2023 Platelet mean volume (Bld) [Entitic vol] 9.2 fL 6.3-10.7 [facility] Platelets Auto (Bld) [#/Vol] Ordered By: Yoli Norris on 08-15-2023 Platelets (Bld) [#/Vol] 321 10*3/uL 150-450 [facility] Potassium [Moles/volume] in Serum or PlasmaOrdered By: Yoli Norris on 08-15-2023 Potassium [Moles/Vol] 3.5 mmol/L 3.5-5.1 [facility] Protein Auto test strip (U) [Mass/Vol]Ordered By: Yoli Norris on 08-15-2023 Protein (U) [Mass/Vol] Negative Negative [facility] Protein [Mass/volume] in Ser um or PlasmaOrdered By: Yoli Norris on 08-15-2023 Protein [Mass/Vol] 7.8 g/dL 6.4-8.9 [facility] RBC Auto (Bld) [#/Vol]Ordere d By: Yoli Norris on 08-15-2023 RBC (Bld) [#/Vol] 4.03 10*6/uL 3.60-5.00 [facility] Serum or plasma albumin/glob ulin mass ratioOrdered By: Yoli Norris on 08-15-2023 Albumin/Globulin [Mass ratio] 1.4 {ratio} [facility] Serum or plasma anion gap de terminationOrdered By: Yoli Norris on 08-15-2023 Anion gap [Moles/Vol] 12.7 mmol/L 6.0-15.0 [facility] Serum or plasma non-glucuron idated bilirubin measurement (mass/volume)Ordered By: Yoli Norris on 08-15-2023 Bilirubin.indirect [Mass/Vol] 0.3 mg/dL [facility] Sodium [Moles/volume] in Ser um or PlasmaOrdered By: Yoli Norris on 08-15-2023 Sodium [Moles/Vol] 140 mmol/L 136-145 [facility] Specific gravity Auto test s trip (U) [Rel density]Ordered By: Yoli Norris on 08-15-2023 Specific gravity (U) [Rel density] 1.007 1.001-1.030 [facility] Urea nitrogen [Mass/volume] in Serum or PlasmaOrdered By: Yoli Norris on 08-15-2023 Urea nitrogen [Mass/Vol] 11 mg/dL 7-25 [facility] Urine clarity by refractomet ry automatedOrdered By: Yoli Norris on 08-15-2023 Clarity Refractometry automated (U) Clear Clear [facility] Urine glucose measurement by automated test strip (mass/volume)Ordered By: Yoli Norris on 08-15-2023 Glucose Auto test strip (U) [Mass/Vol] Normal mg/dL Normal [facility] Urine hemoglobin detection b y automated test stripOrdered By: Yoli Norris on 08-15-2023 Hemoglobin Auto test strip Ql (U) Negative Negative [facility] Urine leukocyte esterase det ection by automated test stripOrdered By: Yoli Norris on 08-15-2023 Leukocyte esterase Auto test strip Ql (U) Negative Negative [facility] Urobilinogen Auto test strip (U) [Mass/Vol]Ordered By: Yoli Norris on 08-15-2023 Urobilinogen (U) [Mass/Vol] Normal mg/dL Normal [facility] Vitamin B1on 08-15-2023 Vitamin B1 145 nmol/L Normal 70-180 [facility] Comment on above: Result Comment: (NOT [...] developed and its performance characteristics determined by [facility]. It has not been cleared or approved by the [place] Food and Drug Administration. This test was performed in a CLIA certified laboratory and is intended for clinical purposes. Performed By: [facility] [address] [place] [address] Tissue Rewinder: Osmar Salcido MD, PhD CLIA Number: [id number] Performed By: #### P THHAYDEEA, FEBC, FERI, GLYHGB, VD25 #### [facility] [address] [place] [address] Dynamic Balancer: Harpal Adair MD #### ARIAN OLIVOTB1, AZN #### [facility] [address] [place] [address] Dynamic Balancer: Patricio Zuñiga MD #### CP, MG, CDP #### [facility] [address] [place] [address] Dynamic Balancer: Hilton Armenta MD WBC Auto (Bld) [#/Vol]Ordere d By: Yoli Norris on 08-15-2023 WBC (Bld) [#/Vol] 11.3 10*3/uL 3.8-11.6 [facility] pH Auto test strip (U)Ordere d By: Yoli Norris on 08-15-2023 pH (U) 8.0 [pH] 5.0-9.0 [facility] Zinc, Serumon 08-14-2023 Zinc, Serum 95.3 ug/dL Normal 60.0-120.0 [facility] Comment on above: Result Comment: (NOT [...] developed and its performance characteristics determined by [facility]. It has not been cleared or approved by the US Food and Drug Administration. This test was performed in a CLIA certified laboratory and is intended for clinical purposes. Performed By: [facility] [employer] [address] [place] [id number] Tissue Rewinder: Osmar Salcido MD, PhD CLIA Number: [id number] Performed By: #### ALFONSO COSTA FERI, DONAVANB, VD25 #### [address] [id number] Dynamic Balancer: Harpal Adair MD #### AGNES OLIVO, AZN #### [address] [id number] Dynamic Balancer: Patricio Zuñiga MD #### MG ANGEL, CDP #### [address] [place] [address] Dynamic Balancer: Hilton Armenta MD B12/Folate Panelon 3 Folic Acid >20.0 Normal >4.8 [facility] Comment on above: Performed By: #### ALFONSO COSTA FERI, GLYHGB, VD25 #### [address] [id number] Dynamic Balancer: Harpal Adair MD #### AGNES OLIVO, AZN #### [address] [phone] Dynamic Balancer: Patricio Zuñiga MD #### ANGEL MG, CDP #### [address] [place] [address] Dynamic Balancer: Hilton Armenta MD Cobalamin (Vitamin B12) [Mass/Vol] 632 pg/mL Normal 232-1245 [facility] Comment on above: Performed By: #### P BAILEY, FECHRIS, FERI, GLYHGB, VD25 #### [address] [place] [address] Dynamic Balancer: Harpal Adair MD #### AGNES OLIVO, AZN #### [facility] [address] [place], [place] [phone] Dynamic Balancer: Patricio Zuñiga MD #### MG ANGEL, CDP #### [address] [place] [address] Dynamic Balancer: Hilton Armenta MD CBC with Diffon 08-12-2023 Abs. Basophil 0.06 k/uL Normal 0.00-0.20 [facility] Comment on above: Performed By: #### Kina AVALOS, ALFONSO, FERI, GLYHGB, VD25 #### [address] [address] Dynamic Balancer: Harpal Adair MD #### AGNES OLIVO, AZN #### [facility] [address] [place] [id number] Dynamic Balancer: Patricio Zuñiga MD #### MG ANGEL, CDP #### [address] [place] [address] Dynamic Balancer: Hilton Armenta MD Abs.Imm.Granulocyte 0.03 k/uL Normal 0.00-0.30 [facility] Comment on above: Performed By: #### P BAILEY, FECHRIS, FERI, GLYHGB, VD25 #### [address] [address] Dynamic Balancer: Harpal Adair MD #### AGNES OLIVO, AZN #### [facility] [address] [place] [address] Dynamic Balancer: Patricio Zuñiga MD #### MG ANGEL, CDP #### [address] [place] [id number] Dynamic Balancer: Hilton Armenta MD Abs.Neutrophil (Seg) 6.33 k/uL Normal 1.50-8.10 [facility] Comment on above: Performed By: #### P GINCA, FEBC, FERI, GLYHGB, VD25 #### [address] [id number] Dynamic Balancer: Harpal Adair MD #### AGNES OLIVO, AZN #### [facility] [address] [place], [place] [id number] Dynamic Balancer: Patricio Zuñiga MD #### MG ANGEL, CDP #### [address] [place] [address]2583 Dynamic Balancer: Hilton Armenta MD Basophils/100 WBC (Bld) 1 % Normal 0-2 [facility] Comment on above: Performed By: #### Kina AVALOS, ALFONSO, FERI, GLYHGB, VD25 #### [address] [address] Dynamic Balancer: Harpal Adair MD #### AGNES OLIVO, AZN #### [facility] [address] [place] [address] Dynamic Balancer: Patricio Zuñiga MD #### ANGEL MG, CDP #### [address] [place] [address] Dynamic Balancer: Hilton Armenta MD Eosinophils (Bld) [#/Vol] 0.43 10*3/uL Normal 0.00-0.44 [facility] Comment on above: Performed By: #### P THNCA, FEBC, FERI, GLYHGB, VD25 #### [facility] [address] [place] [address] Dynamic Balancer: Harpal Adair MD #### AGNES OLIVO, AZN #### [facility] [address] [place] [address] Dynamic Balancer: Patricio Zuñiga MD #### MG ANGEL, CDP #### [address] [place], [place] [id number] Dynamic Balancer: Hilton Armenta MD Eosinophils/100 WBC (Bld) 5 % High 1-4 [facility] Comment on above: Performed By: #### ALFONSO COSTA, ASHLYI, GLYHGB, VD25 #### [address] [address] Dynamic Balancer: Harpal Adair MD #### AGNES OLIVO, AZN #### [facility] [address] [place], [place] [phone] Dynamic Balancer: Patricio Zuñiga MD #### MG ANGEL, CDP #### [address] [place] [address] Dynamic Balancer: Hilton Armenta MD Erythrocyte distribution width (RBC) [Ratio] 14.9 % High 11.8-14.4 [facility] Comment on above: Performed By: #### P BAILEY, FECHRIS, FERI, GLYHGB, VD25 #### [facility] [address] [place] [address] Dynamic Balancer: Harpal Adair MD #### AGNES OLIVO, AZN #### [facility] [address] [place], [place] [id number] Dynamic Balancer: Patricio Zuñiga MD #### ANGEL, MG, CDP #### [address] [place] [address] Dynamic Balancer: Hilton Armenta MD Hematocrit (Bld) [Volume fraction] 38.0 % Normal 36.3-47.1 [facility] Comment on above: Performed By: #### P THNCA, FEBC, FERI, GLYHGB, VD25 #### [facility] [place] [address] Dynamic Balancer: Harpal Adair MD #### AGNES OLIVO, AZN #### [facility] [address] [place] [address] Dynamic Balancer: Patricio Zuñiga MD #### MG ANGEL, CDP #### [address] [place] [address] Dynamic Balancer: Hilton Armenta MD Hemoglobin (Bld) [Mass/Vol] 12.2 g/dL Normal 11.9-15.1 [facility] Comment on above: Performed By: #### P DENNISA, FEBC, FERI, GLYHGB, VD25 #### [address] [address] Dynamic Balancer: Harpal Adair MD #### AGNES OLIVO, AZN #### [facility] [address] [place], [place] [id number] Dynamic Balancer: Patricio Zuñiga MD #### MG ANGEL, CDP #### [address] [place] [address] Dynamic Balancer: Hilton Armenta MD Immature granulocytes/100 WBC (Bld) 0 % Normal 0 [facility] Comment on above: Performed By: #### P THNCA, FEBC, FERI, GLYHGB, VD25 #### [facility] [address] [place] [address] Dynamic Balancer: Harpal Adair MD #### AGNES OLIVO, AZN #### [facility] [address] [place], [place] [id number] Dynamic Balancer: Patricio Zuñiga MD #### CP, MG, CDP #### [facility] [address] [place] [address] [place] [address] Dynamic Balancer: Hilton Armenta MD Lymphocytes (Bld) [#/Vol] 1.90 10*3/uL Normal 1.10-3.70 [facility] Comment on above: Performed By: #### P THNCA, FEBC, FERI, GLYHGB, VD25 #### [facility] [address] [place], [place] [id number] Dynamic Balancer: Harpal Adair MD #### AGNES OLIVO, AZN #### [facility] [address] [place], [place] [id number] Dynamic Balancer: Patricio Zuñiga MD #### MG ANGEL, CDP #### [address] [place] [id number] Dynamic Balancer: Hilton Armenta MD Lymphocytes/100 WBC (Bld) 20 % Low 24-43 [facility] Comment on above: Performed By: #### P THNCA, FEBC, FERI, GLYHGB, VD25 #### [facility] [address] [place] [address] [id number] Dynamic Balancer: Harpal Adair MD #### AGNES OLIVO, AZN #### [facility] [address] [place], [place] [phone] Dynamic Balancer: Patricio Zuñiga MD #### CP, MG, CDP #### [address] [place] [address] Dynamic Balancer: Hilton Armenta MD MCH (RBC) [Entitic mass] 29.9 pg Normal 25.2-33.5 [facility] Comment on above: Performed By: #### P THNCA, FEBC, FERI, GLYHGB, VD25 #### [address] [id number] Dynamic Balancer: Harpal Adair MD #### AGNES OLIVO, AZN #### [facility] [address] [place], [place] [id number] Dynamic Balancer: Patricio Zuñiga MD #### ANGEL, MG, CDP #### [address] [place] [address] Dynamic Balancer: Hilton Armenta MD MCHC (RBC) [Mass/Vol] 32.1 g/dL Normal 28.4-34.8 [facility] Comment on above: Performed By: #### ALFONSO COSTA, ASHLYI, GLYHGB, VD25 #### [address] [id number] Dynamic Balancer: Harpal Aadir MD #### AGNES OLIVO, AZN #### [address] [id number] Dynamic Balancer: Patricio Zuñiga MD #### MG ANGEL, CDP #### [address] [place] [address] Dynamic Balancer: Hilton Armenta MD MCV (RBC) [Entitic vol] 93.1 fL Normal 82.6-102.9 [facility] Comment on above: Performed By: #### ALFONSO COSTA, FERI, GLYHGB, VD25 #### [address] [id number] Dynamic Balancer: Harpal Adair MD #### AGNES OLIVO, AZN #### [facility] [address] [place], [place] [id number] Dynamic Balancer: Patricio Zuñiga MD #### ANGEL, MG, CDP #### [address] [place] [address] Dynamic Balancer: Hilton Armenta MD Monocytes (Bld) [#/Vol] 0.70 10*3/uL Normal 0.10-1.20 [facility] Comment on above: Performed By: #### P THNCA, FEBC, FERI, GLYHGB, VD25 #### [address] [address] Dynamic Balancer: Harpal Adair MD #### ARIAN OLIVOTBCeli, AZN #### [facility] [address] [place] [address] Dynamic Balancer: Patricio Zuñiga MD #### MG ANGEL, CDP #### [address] [place] [address] Dynamic Balancer: Hilton Armenta MD Monocytes/100 WBC (Bld) 7 % Normal 3-12 [facility] Comment on above: Performed By: #### P THNCA, FEBC, FERI, GLYHGB, VD25 #### [address] [address] Dynamic Balancer: Harpal Adair MD #### AGNES OLIVO, AZN #### [facility] [address] [place], [place] [id number] Dynamic Balancer: Patricio Zuñiga MD #### ANGEL MG, CDP #### [address] [place] [address] Dynamic Balancer: Hilton Armenta MD Neutrophil (Seg) 67 % High 36-65 [facility] Comment on above: Performed By: #### P THNCA, FEBC, FERI, GLYHGB, VD25 #### [address] [address] Dynamic Balancer: Harpal Adair MD #### ARIAN OLIVOTB1, AZN #### [facility] [address] [place], [place] [id number] Dynamic Balancer: Patricio Zuñiga MD #### CP, MG, CDP #### [facility] [address] [place] [address] [address] [place] [id number] Dynamic Balancer: Hilton Armenta MD NRBC Automated 0.0 per 100 WBC Normal 0.0 [facility] Comment on above: Performed By: #### P THNCA, FEBC, FERI, GLYHGB, VD25 #### [address] [address] Dynamic Balancer: Harpal Adair MD #### ARIAN OLIVOTBCeli, AZN #### [facility] [address] [place] [address] Dynamic Balancer: Patricio Zuñiga MD #### ANGEL, MG, CDP #### [address] [place] [id number] Dynamic Balancer: Hilton Armenta MD Platelet mean volume (Bld) [Entitic vol] 10.6 fL Normal 8.1-13.5 [facility] Comment on above: Performed By: #### P THNCA, FEBC, FERI, GLYHGB, VD25 #### [address] [address] Dynamic Balancer: Harpal Adair MD #### AGNES OLIVO, AZN #### [facility] [address] [place], [place] [id number] Dynamic Balancer: Patricio Zuñiga MD #### CP, MG, CDP #### [address] [place] [id number] Dynamic Balancer: Hilton Armenta MD Platelets (Bld) [#/Vol] 355 10*3/uL Normal 138-453 [facility] Comment on above: Performed By: #### P THNCA, FEBC, FERI, GLYHGB, VD25 #### [address] [address] Dynamic Balancer: Harpal Adair MD #### AGNES OLIVO, AZN #### [facility] [address] [place], [place] [id number] Dynamic Balancer: Patricio Zuñiga MD #### CP, MG, CDP #### [address] [place], [place] [id number] Dynamic Balancer: Hilton Armenta MD RBC (Bld) [#/Vol] 4.08 10*6/uL Normal 3.95-5.11 [facility] Comment on above: Performed By: #### P BAILEY, ALFONSO, FERI, GLYHGB, VD25 #### [facility] [place] [address] Dynamic Balancer: Harpal Adair MD #### AGNES OLIVO, AZN #### [facility] [address] [place], [place] [phone] Dynamic Balancer: Patricio Zuñiga MD #### ANGEL, MG, CDP #### [address] [place] [id number] Dynamic Balancer: Hilton Armenta MD WBC (Bld) [#/Vol] 9.5 10*3/uL Normal 3.5-11.3 [facility] Comment on above: Performed By: #### P THNCA, FEBC, FERI, GLYHGB, VD25 #### [facility] [place] [address] Dynamic Balancer: Harpal Adair MD #### AGNES OLIVO, AZN #### [facility] [address] [place], [place] [phone] Dynamic Balancer: Patricio Zuñiga MD #### CP, MG, CDP #### [address] [place] [id number] Dynamic Balancer: Hilton Armenta MD Comp Metabolic Profon 2022 Albumin [Mass/Vol] 4.5 g/dL Normal 3.5-5.2 [facility] Comment on above: Performed By: #### P THNCA, FEBC, FERI, GLYHGB, VD25 #### [address] [place] [address] Dynamic Balancer: Harpal Adair MD #### AGNES OLIVO, AZN #### [facility] [address] [place] [address] Dynamic Balancer: Patricio Zuñiga MD #### MG ANGEL, CDP #### [address] [place] [address] Dynamic Balancer: Hilton Armenta MD Albumin/Glob Ratio 1.6 Normal 1.0-2.5 [facility] Comment on above: Performed By: #### P DENNISA, FEBC, FERI, GLYHGB, VD25 #### [address] [address] Dynamic Balancer: Harpal Adair MD #### AGNES OLIVO, AZN #### [facility] [address] [place] [address] Dynamic Balancer: Patricio Zuñiga MD #### MG ANGEL, CDP #### [address] [place] [address] Dynamic Balancer: Hilton Armenta MD Alkaline Phos 85 U/L Normal 35-104 [facility] Comment on above: Performed By: #### P THNCA, FEBC, FERI, GLYHGB, VD25 #### [address] [address] Dynamic Balancer: Harpal Adair MD #### AGNES OLIVO, AZN #### [facility] [address] [place], [place] [id number] Dynamic Balancer: Patricio Zuñiga MD #### CP, MG, CDP #### [facility] [address] [place] [address] [place] [address] Dynamic Balancer: Hilton Armenta MD ALT [Catalytic activity/Vol] 21 U/L Normal 5-33 [facility] Comment on above: Performed By: #### P THNCA, FEBC, FERI, GLYHGB, VD25 #### [facility] [address] [place] [address] Dynamic Balancer: Harpal Adair MD #### ARIAN OLIVOTBCeli, AZN #### [facility] [address] [place] [address] Dynamic Balancer: Patricio Zuñiga MD #### ANGEL, MG, CDP #### [address] [place] [address] Dynamic Balancer: Hilton Armenta MD Anion gap [Moles/Vol] 11 mmol/L Normal 9-17 [facility] Comment on above: Performed By: #### P THNCA, FEBC, FERI, GLYHGB, VD25 #### [address] [address] Dynamic Balancer: Harpal Adair MD #### AGNES OLIVO, AZN #### [facility] [address] [place] [address] Dynamic Balancer: Patricio Zuñiga MD #### CP, MG, CDP #### [address] [address] Dynamic Balancer: Hilton Armenta MD AST [Catalytic activity/Vol] 22 U/L Normal <32 [facility] Comment on above: Performed By: #### P THNCA, FEBC, FERI, GLYHGB, VD25 #### [facility] [address] [place] [address] Dynamic Balancer: Harpal Adair MD #### ARIAN OLIVOTB1, AZN #### [facility] [address] [place], [place] [id number] Dynamic Balancer: Patricio Zuñiga MD #### CP, MG, CDP #### [facility] [address] [place] [address] Dynamic Balancer: Hilton Armenta MD Bilirubin [Mass/Vol] 0.2 mg/dL Low 0.3-1.2 [facility] Comment on above: Performed By: #### P THNCA, FEBC, FERI, GLYHGB, VD25 #### [address] [id number] Dynamic Balancer: Harpal Adair MD #### ARIAN OLIVOTB1, AZN #### [facility] [address] [place], [place] [id number] Dynamic Balancer: Patricio Zuñiga MD #### ANGEL, MG, CDP #### [address] [place] [address] Dynamic Balancer: Hilton Armenta MD BUN/CRE Ratio 20 Normal 9-20 [facility] Comment on above: Performed By: #### P THNCA, FEBC, FERI, GLYHGB, VD25 #### [address] [id number] Dynamic Balancer: Harpal Adair MD #### ARIAN OLIVOTB1, AZN #### [facility] [address] [place], [place] [id number] Dynamic Balancer: Patricio Zuñiga MD #### CP, MG, CDP #### [facility] [address] [place] [address] Dynamic Balancer: Hilton Armenta MD Calcium [Mass/Vol] 9.9 mg/dL Normal 8.6-10.4 [facility] Comment on above: Performed By: #### P THNCA, FEBC, FERI, GLYHGB, VD25 #### [facility] [address] [place] [address] Dynamic Balancer: Harpal Adair MD #### ARIAN OLIVOTB1, AZN #### [facility] [address] [place] [address] Dynamic Balancer: Patricio Zuñiga MD #### MG ANGEL, CDP #### [facility] [address] [place], [place] [id number] Dynamic Balancer: Hilton Armenta MD Chloride [Moles/Vol] 107 mmol/L Normal 98-107 [facility] Comment on above: Performed By: #### P THNCA, FEBC, FERI, GLYHGB, VD25 #### [address] [address] Dynamic Balancer: Harpal Adair MD #### AGNES OLIVO, AZN #### [facility] [address] [place], [place] [id number] Dynamic Balancer: Patricio Zuñiga MD #### MG ANGEL, CDP #### [address] [place] [address] Dynamic Balancer: Hilton Armenta MD CO2 [Moles/Vol] 23 mmol/L Normal 20-31 [facility] Comment on above: Performed By: #### P THNCA, FEBC, FERI, GLYHGB, VD25 #### [address] [address] Dynamic Balancer: Harpal Adair MD #### AGNES OLIVO, AZN #### [facility] [address] [place] [address] Dynamic Balancer: Patricio Zuñiga MD #### ANGEL, MG, CDP #### [address] [place] [address] Dynamic Balancer: Hilton Armenta MD Creatinine [Mass/Vol] 0.6 mg/dL Normal 0.5-0.9 [facility] Comment on above: Performed By: #### P BAILEY, ALFONSO, FERI, GLYHGB, VD25 #### [address] [place] [address] Dynamic Balancer: Harpal Adair MD #### AGNES OLIVO, AZN #### [facility] [address] [place] [address] Dynamic Balancer: Patricio Zuñiga MD #### MG ANGEL, CDP #### [address] [place] [address] Dynamic Balancer: Hilton Armenta MD GFR/1.73 sq M.predicted among non-blacks MDRD (S/P/Bld) [Vol rate/Area] mL/min/{1.73_m2} Normal >60 [facility] Comment on above: Result Comment: These [...] tubular secretion. Performed By: #### P BAILEY, ALFONSO, FERI, GLYHGB, VD25 #### [address] [place] [address] Dynamic Balancer: Harpal Adair MD #### AGNES OLIVO, AZN #### [facility] [address] [place] [address] Dynamic Balancer: Patricio Zuñiga MD #### ANGEL, MG, CDP #### [facility] [address] [place] [address] [place] [address] Dynamic Balancer: Hilton Armenta MD Glucose [Mass/Vol] 89 mg/dL Normal 70-99 [facility] Comment on above: Performed By: #### P ALFONSO AVALOS, FERI, GLYHGB, VD25 #### [facility] [place] [address] Dynamic Balancer: Harpal Adair MD #### AGNES OLIVO, AZN #### [facility] [address] [place] [address] Dynamic Balancer: Patricio Zuñiga MD #### ANGEL, MG, CDP #### [address] [place] [address] Dynamic Balancer: Hilton Armenta MD Potassium [Moles/Vol] 4.3 mmol/L Normal 3.7-5.3 [facility] Comment on above: Performed By: #### ALFONSO COSTA, FERI, GLYHGB, VD25 #### [address] [address] Dynamic Balancer: Harpal Adair MD #### AGNES OLIVO, AZN #### [facility] [address] [place], [place] [id number] Dynamic Balancer: Patricio Zuñiga MD #### ANGEL, MG, CDP #### [address] [place] [address] Dynamic Balancer: Hilton Armenta MD Protein [Mass/Vol] 7.4 g/dL Normal 6.4-8.3 [facility] Comment on above: Performed By: #### ALFONSO COSTA, FERI, GLYHGB, VD25 #### [address] [address] Dynamic Balancer: Harpal Adair MD #### AGNES OLIVO, AZN #### [facility] [address] [place], [place] [id number] Dynamic Balancer: Patricio Zuñiga MD #### CP, MG, CDP #### [facility] [address] [place] [address] [place] [address] Dynamic Balancer: Hilton Armenta MD Sodium [Moles/Vol] 141 mmol/L Normal 135-144 [facility] Comment on above: Performed By: #### P THNCA, FEBC, FERI, GLYHGB, VD25 #### [address] [address] Dynamic Balancer: Harpal Adair MD #### AGNES OLIVO, AZN #### [facility] [address] [place] [address] Dynamic Balancer: Patricio Zuñiga MD #### ANGEL, MG, CDP #### [facility] [address] [place] [address] [place] [address] Dynamic Balancer: Hilton Armenta MD Urea nitrogen [Mass/Vol] 12 mg/dL Normal 6-20 [facility] Comment on above: Performed By: #### P THNCA, FEBC, FERI, GLYHGB, VD25 #### [address] [address] Dynamic Balancer: Harpal Adair MD #### AGNES OLIVO, AZN #### [facility] [address] [place] [address] Dynamic Balancer: Patricio Zuñiga MD #### CP, MG, CDP #### [address] [place] [address] Dynamic Balancer: Hilton Armenta MD Ferritinon 08-12-2023 Ferritin [Mass/Vol] 12 ng/mL Low 13-150 [facility] Comment on above: Performed By: #### P THNCA, FEBC, FERI, GLYHGB, VD25 #### [facility] [address] [place] [address] Dynamic Balancer: Harpal Adair MD #### AGNES OLIVO, AZN #### [facility] [address] [place], [place] [id number] Dynamic Balancer: Patricio Zuñiga MD #### ANGEL, MG, CDP #### [address] [place], [place] [address] Dynamic Balancer: Hilton Armenta MD Hemoglobin A1Con 08-12-2023 Glucose [Mass/Vol] 114 mg/dL Normal [facility] Comment on above: Result Comment: The ADA and AACC recommend providing the estimated average glucose result to permit better patient understanding of their HBA1c result. Performed By: #### ALFONSO COSTA FERI, GLYHGB, VD25 #### [address] [address] Dynamic Balancer: Harpal Adair MD #### AGNES OLIVO, AZN #### [facility] [address] [place] [id number] Dynamic Balancer: Patricio Zuñiga MD #### MG ANGEL, CDP #### [address] [place], [place] [address] Dynamic Balancer: Hilton Armenta MD HbA1c (Bld) [Mass fraction] 5.6 % Normal 4.0-6.0 [facility] Comment on above: Performed By: #### ALFONSO COSTA FERI, GLYHGB, VD25 #### [address] [address] Dynamic Balancer: Harpal Adair MD #### AGNES OLIVO, AZN #### [facility] [address] [place] [address] Dynamic Balancer: Patricio Zuñiga MD #### ANGEL, MG, CDP #### [address] [place] [place] [address] Dynamic Balancer: Hilton Armenta MD Iron Binding Cap.on 08-12-20 23 % Fe Saturation 16 % Low 20-55 [facility] Comment on above: Performed By: #### P THNCA, FEBC, FERI, GLYHGB, VD25 #### [address] [address] Dynamic Balancer: Harpal Adair MD #### ARIAN OLIVOTBCeli, AZN #### [facility] [address] [place] [address] Dynamic Balancer: Patricio Zuñiga MD #### MG ANGEL, CDP #### [address] [place] [place] [address] Dynamic Balancer: Hilton Armenta MD Iron [Mass/Vol] 57 ug/dL Normal 37-145 [facility] Comment on above: Performed By: #### P THNCA, FEBC, FERI, GLYHGB, VD25 #### [address] [address] Dynamic Balancer: Harpal Adair MD #### AGNES OLIVO, AZN #### [facility] [address] [place], [place] [id number] Dynamic Balancer: Patricio Zuñiga MD #### MG ANGEL, CDP #### [address] [place] [address] Dynamic Balancer: Hilton Armenta MD Total Fe Binding Cap 354 ug/dL Normal 250-450 [facility] Comment on above: Performed By: #### P THNCA, FEBC, FERI, GLYHGB, VD25 #### [address] [address] Dynamic Balancer: Harpal Adair MD #### ARIAN OLIVOTB1, AZN #### [facility] [address] [place] [address] Dynamic Balancer: Patricio Zuñiga MD #### CP, MG, CDP #### [facility] [address] [place] [address] Dynamic Balancer: Hilton Armenta MD Unbound Fe Bind Cap 297 ug/dL Normal 112-347 [facility] Comment on above: Performed By: #### P THNCA, FEBC, FERI, GLYHGB, VD25 #### [facility] [employer] [address] [place] [id number] Dynamic Balancer: Harpal Adair MD #### TYREE OLIVO1, AZN #### [facility] [address] [place] [address] Dynamic Balancer: Patricio Zuñiga MD #### CP, MG, CDP #### [facility] [address] [place] [address] Dynamic Balancer: Hilton Armenta MD Lipid Profileon 08-12-2023 Cholesterol [Mass/Vol] 153 mg/dL Normal <200 [facility] Comment on above: Result Comment: Cholesterol Guidelines: <200 Desirable 200-240 Borderline >240 Undesirable Performed By: #### L IPR #### [address] [address] Dynamic Balancer: Harapl Adair MD Cholesterol in HDL [Mass/Vol] 68 mg/dL Normal >40 [facility] Comment on above: Result Comment: HDL Guidelines: <40 Undesirable 40-59 Borderline >59 Desirable Performed By: #### L IPR #### [address] [address] Dynamic Balancer: Harpal Adair MD Cholesterol in LDL [Mass/Vol] 77 mg/dL Normal 0-130 [facility] Comment on above: Result Comment: LDL Guidelines: <100 Desirable 100-129 Near to/above Desirable 130-159 Borderline >159 Undesirable Direct (measured) LDL and calculated LDL are not interchangeable tests. Performed By: #### L IPR #### [address] [address] Dynamic Balancer: Harpal Adair MD Cholesterol.total/Chol esterol in HDL [Mass ratio] 2.3 {ratio} Normal <5 [facility] Comment on above: Performed By: #### L IPR #### [address] [address] Dynamic Balancer: Harpal Adair MD Triglyceride [Mass/Vol] 39 mg/dL Normal <150 [facility] Comment on above: Result Comment: Triglyceride Guidelines: <150 Desirable 150-199 Borderline 200-499 High >499 Very high Based on AHA Guidelines for fasting triglyceride, June 2012. Performed By: #### L IPR #### [address] [address] Dynamic Balancer: Harpal Adair MD Magnesiumon Magnesium [Mass/Vol] 2.1 mg/dL Normal 1.6-2.6 [facility] Comment on above: Performed By: #### P THNCA, FEBC, FERI, GLYHGB, VD25 #### [address] [address] Dynamic Balancer: Harpal Adair MD #### AGNES OLIVO, AZN #### [facility] [address] [place], [place] [id number] Dynamic Balancer: Patricio Zuñiga MD #### CP, MG, CDP #### [facility] [address] [place] [address] Dynamic Balancer: Hilton Armenta MD PTH, Intacton 08-12-2023 PTH, Intact 17.1 pg/mL Normal 14.0-72.0 [facility] Comment on above: Result Comment: SAMP LES FROM PATIENTS ROUTINELY RECEIVING HIGH DOSE BIOTIN THERAPY MAY SHOW FALSELY DEPRESSED RESULTS. ADDITIONAL INFORMATION MAY BE REQUIRED FOR DIAGNOSIS. Performed By: #### P THNCA, FEBC, FERI, GLYHGB, VD25 #### [address] [id number] Dynamic Balancer: Harpal Adair MD #### AGNES OLIVO, AZN #### [facility] [address] [place] [address] Dynamic Balancer: Patricio Zuñiga MD #### ANGEL, MG, CDP #### [address] [place] [address] Dynamic Balancer: Hilton Armenta MD Thyroid Stim. Horm.on 2022 Thyroid Stim. Horm. 1.50 uIU/mL Normal 0.30-5.00 [facility] Comment on above: Performed By: #### P ALFONSO AVALOS, FERI, GLYHGB, VD25 #### [facility] [address] [place] [address] Dynamic Balancer: Harpal Adair MD #### AGNES OLIVO, AZN #### [facility] [address] [place] [address] Dynamic Balancer: Patricio Zuñiga MD #### ANGEL MG, CDP #### [address] [place] [address] Dynamic Balancer: Hilton Armenta MD Thyroxine, Freeon 08-12-2023 Thyroxine, Free 1.2 ng/dL Normal 0.9-1.7 [facility] Comment on above: Performed By: #### P BAILEY, ALFONSO, FERI, GLYHGB, VD25 #### [facility] [address] [place] [address] Dynamic Balancer: Harpal Adair MD #### AGNES OLIVO, AZN #### [facility] [address] [place] [address] Dynamic Balancer: Patricio Zuñiga MD #### ANGEL, MG, CDP #### [address] [place] [address] Dynamic Balancer: Hilton Armenta MD US GALLBLADDER RUQon 023 US GALLBLADDER RUQ EXAMINATION: RIGHT UPPER QUADRANT ULTRASOUND 08/12/2023 7:25 am COMPARISON: None. HISTORY: ORDERING SYSTEM PROVIDED HISTORY: LUQ pain TECHNOLOGIST PROVIDED HISTORY: This procedure can be scheduled via [employer]ass[employer]. Access your [facility] account by visiting [facility]. FINDINGS: LIVER: The liver demonstrates normal echogenicity [...] Bret Monson DO 08/12/23 Final result Normal [facility] Vitamin D 25 OHon 08-12-2023 Vitamin D 25 OH 45.1 ng/mL Normal >29.9 [facility] Comment on above: Result Comment: Reference Range: Vitamin D status Range Deficiency <20 ng/mL Mild Deficiency 20-30 ng/mL Sufficiency 30-100 ng/mL Toxicity >100 ng/mL Performed By: #### P THNCA, FEBC, FERI, GLYHGB, VD25 #### [facility] [address] [place], [place] [id number] Dynamic Balancer: Harpal Adair MD #### AGNES OLIVO, AZN #### [facility] [employer] [address] [place] [address] Dynamic Balancer: Patricio Zuñiga MD #### ANGEL, MG, CDP #### [facility] [address] [place] [address] Dynamic Balancer: Hilton Armenta MD Patient Correspondenceon Patient Correspondence [id number]#1.00T IFF [facility]o [facility] ED Note-Physicianon 07-14-20 ED Note-Physician Basic Information Time Seen: Shama Macdonald PA-C 06/09/2023 15:45 Chief Complaint Pt presents to ED with complaints of MALDONADO onset today. History of Present Illness This patient presents to the emergency department chief complaint of maryam. She states that she has spent $10,000 in the last 2 weeks. She did see her psychiatrist at [facility] today and they are starting her on [...] of care. (more content not included)... Normal [facility] Comment on above: Result Comment: Elec tronically Signed By: Shama Macdonald PA-C\.br\Date and Time Signed: 07/14/23 19:57 EDT\.br\Electronically Co-Signed By: Alexis Shukla DO\.br\Date and Time Co-Signed: 07/20/23 07:11 EST COVID Quick Testingon 2022 Result Negative Internal Gaming Other Consultation Noteon 07-08-20 Consultation Note [id number]#1.00T IFF Normal [facility] Consent for Treatmenton 06-14 Consent for Treatment [id number]#1.00T IFF Normal [facility] ED Clinical Summaryon 2022 ED Clinical Summary (Inserted Image. Jordana ble to display) [address] [address] ED Clinical Summary Person Information Name: SHAZIA CHOU [place] Age: 32 Years : 1990 Sex: Female Language: Guinean PCP: Jennie Durand DO Marital Status: Phone: [phone] MRN: Visit Id: Visit Reason: Headache; Neck [...] 07/02/2023 15:29:14 07/02/2023 15:29:14 07/02/2023 15:29:14 ADDRESS: [address] [place] [id number] [facility] DOC NOTES: MEDICAL INFORMATION: Prescriptions Given: [...] EDUCATION INFORMATION: Instructions: Follow up: DIAGNOSIS: Normal [facility] ED Patient Education Noteon 07-02-2023 ED Patient Education Note Normal [facility] ED Patient Summaryon 023 ED Patient Summary (Inserted Image. Jordana ble to display) [place] [id number] Patient Discharge Instructions Person Information Name: SHAZIA CHOU Age: 32 Years Arrival Date: 07/02/2023 14:03:05 Discharge Diagnosis: Primary Care Physician: Jennie Durand DO Provider Information Primary Provider: Bakari Chester DO Advanced Apprentice Carpenter:Merari Polanco PA-C The exam and treatment you received in the Emergency Department were for an urgent problem and are not intended as complete care. It is important that you follow up with a doctor, nurse practitioner, or physician?s assistant printer floor covering for ongoing care. If your symptoms become [...] opioids can be used to help relieve vaduqvvi-cs-dpztqb pain and are often prescribed following a [...] guidance from the Food and Drug Administration (www.fda.gov/Drugs/Reso urcesForYou). ? Visit www.cdc.gov/drugoverdos e to learn about the risks of opioids abuse and overdose. ? If you believe you may be struggling with addiction, tell your health career development manager and ask for guidance or call [facility]?S National Helpline at 3-116-340-[employer]. v Source: US Department of Health and Human Services/Center for Disease Control & Prevention [facility] Medications Given: Medication Dose Route No medication (more content not included)... [facility] Consultation Noteon 06-22-20 Consultation Note [id number]#1.00TI FF [facility] Consultation Noteon 06-19-20 Consultation Note [id number]#1.00T IFF [facility] Erensto 06-15-2023 CNPN Telephone (NEADFV) SHAZIA CHOU ([id number]) 1990 F Date Time Provider Department 06/15/23 EILEEN ALVAREZ During your visit today, we recorded the following information about you: Clara Durbin, MARCO 06/15/2023 4:57 PM Signed Received clinical notes and test results from [facility] ED visit from 06/10/23. 13 pages. Scanned to chart via [employer]. Routed to provider for review Glen Singh [...] is not alleviating the problem. Patient # [phone] Gorge Betancur 07/03/2023 12:15 PM Signed Per instructions from Dr. Alvarez. for patient, also sent message via [employer]. She needs to be back on diamox [...] 40 mg by mouth once daily. - ydcccxjicwpo-day-tngk-F A-vit K (BARIATRIC MULTIVITAMINS) 45 mg iron- 800 [...] Status:Closed by GORGE BETANCUR on 07/03/23 Normal [facility] Discharge Instructionson Discharge Instructions [id number]#1.00 CD:127 Normal [facility] Acetamnphn Lvlon 06-09-2023 Acetaminophen [Mass/Vol] ug/mL Low 15-30 [facility] Comment on above: Performed By: #### 2 357744, 3861377, 5392812, 4368197, 7672814, 84034758 ####[facility] [address] [place] [address] Auto Diffon 06-09-2023 Basophils/100 WBC (Bld) 0.6 % Normal 0.0-2.0 [facility] Comment on above: Order Comment: Order Added by Discern Expert. Performed By: #### 2 726626, 9271044, 1517570, 7035603, 6109477, 09639598 ####[facility] [address] [place] [address] Basophils/Leukocytes Auto (Bld) [Pure # fraction] 0.0 E9/L Normal 0.0-0.2 [facility] Comment on above: Order Comment: Order Added by Discern Expert. Performed By: #### 2 503264, 8025891, 2642196, 4001411, 3916664, 83959852 ####[facility] [address] [place] [address] Eosinophils/100 WBC (Bld) 1.9 % Normal 0.0-8.0 [facility] Comment on above: Order Comment: Order Added by Discern Expert. Performed By: #### 2 967485, 2183548, 8833321, 2141942, 7588148, 06719195 ####[address] [place] [address] Eosinophils/Leukocytes Auto (Bld) [Pure # fraction] 0.2 E9/L Normal 0.0-0.5 [facility] Comment on above: Order Comment: Order Added by Discern Expert. Performed By: #### 2 095895, 4187575, 1633317, 9318328, 6904085, 93217873 ####[address] [address] Lymphocytes/100 WBC (Bld) 23.4 % Normal 14.0-50.0 [facility] Comment on above: Order Comment: Order Added by Discern Expert. Performed By: #### 2 504465, 9440914, 5516082, 9653452, 5641948, 78489897 ####[address] [address] Lymphocytes/Leukocytes Auto (Bld) [Pure # fraction] 2.0 E9/L Normal 1.0-4.0 [facility] Comment on above: Order Comment: Order Added by Discern Expert. Performed By: #### 2 580048, 5633198, 2304740, 4535197, 4149757, 07090216 ####[address] [address] Monocytes/100 WBC (Bld) 6.9 % Normal 4.0-14.0 [facility] Comment on above: Order Comment: Order Added by Discern Expert. Performed By: #### 2 655136, 3338479, 9389213, 6797355, 8545175, 77732610 ####[address] [place] [address] Monocytes/Leukocytes Auto (Bld) [Pure # fraction] 0.6 E9/L Normal 0.2-1.0 [facility] Comment on above: Order Comment: Order Added by Discern Expert. Performed By: #### 2 198784, 8053649, 2176730, 1493040, 2440495, 67099480 ####[address] [place] [address] Neutrophils/100 WBC (Bld) 67.2 % Normal 36.0-75.0 [facility] Comment on above: Order Comment: Order Added by Discern Expert. Performed By: #### 2 431505, 3642678, 1691229, 1145174, 8608353, 08613460 ####[address] [place] [address] Neutrophils/Leukocytes Auto (Bld) [Pure # fraction] 5.6 E9/L Normal 2.0-7.5 [facility] Comment on above: Order Comment: Order Added by Discern Expert. Performed By: #### 2 691727, 0707398, 2926744, 1272399, 1074261, 94641993 ####[address] [address] CBC w/ Auto Diffon 3 Erythrocyte distribution width (RBC) [Ratio] 18.2 % High 10.9-14.2 [facility] Comment on above: Performed By: #### 2 269739, 6220122, 9099021, 7003880, 3820219, 41662215 ####[address] [address] Hematocrit (Bld) [Volume fraction] 34.3 % Normal 34.0-46.0 [facility] Comment on above: Performed By: #### 2 351995, 3448060, 2898857, 0491105, 2132221, 54674980 ####[address] [address] Hemoglobin (Bld) [Mass/Vol] 11.5 g/dL Low 12.0-16.0 [facility] Comment on above: Performed By: #### 2 201390, 0015247, 3036323, 4342062, 0208084, 67695060 ####[address] [place] [address] MCH (RBC) [Entitic mass] 30.6 pg Normal 27.0-34.0 [facility] Comment on above: Performed By: #### 2 790497, 1774081, 1235118, 9077494, 4478899, 81841899 ####[place] [address] MCHC (RBC) [Mass/Vol] 33.6 g/dL Normal 31.4-36.0 [facility] Comment on above: Performed By: #### 2 726160, 0827825, 1618196, 2836993, 4042816, 90497501 ####[address] [address] MCV (RBC) [Entitic vol] 91.0 fL Normal 80.0-100.0 [facility] Comment on above: Performed By: #### 2 214798, 3273014, 0328808, 7006895, 8295944, 02072569 ####[place] [address] Platelet mean volume (Bld) [Entitic vol] 9.8 fL Normal 6.4-10.8 [facility] Comment on above: Performed By: #### 2 583050, 6882640, 0349538, 4367584, 9947593, 18417069 ####[address] [address] Platelets (Bld) [#/Vol] 283.0 E9/L Normal 150.0-500.0 [facility] Comment on above: Performed By: #### 2 362843, 4155931, 4361032, 2338859, 4734720, 44975783 ####[address] [address] RBC (Bld) [#/Vol] 3.8 E12/L Low 4.3-5.9 [facility] Comment on above: Performed By: #### 2 554301, 3358305, 7446011, 6505014, 5624271, 29904713 ####[place] [address] WBC corrected for nucl RBC Auto (Bld) [#/Vol] 8.4 E9/L Normal 4.0-11.0 [facility] Comment on above: Performed By: #### 2 073807, 7785036, 4600049, 9383872, 0078455, 52654435 ####[facility] [address] [place] [address] CMPon 06-09-2023 Albumin [Mass/Vol] 4.1 g/dL Normal 3.3-5.0 [facility] Comment on above: Performed By: #### 2 262104, 4806844, 5402522, 9780506, 0590117, 51112060 ####[address] [place] [address] Albumin/Globulin (S) [Mass conc ratio] 1.3 Normal 1.1-2.2 [facility] Comment on above: Performed By: #### 2 255528, 9959937, 0059274, 8862548, 2360645, 10258728 ####[facility] [address] [place] [address] ALP [Catalytic activity/Vol] 58 Int._Unit/L Normal 21-98 [facility] Comment on above: Performed By: #### 2 654646, 7326839, 5020304, 1932155, 8288553, 93539990 ####[address] [place] [address] ALT No additional P-5'-P [Catalytic activity/Vol] 18 Int._Unit/L Normal 6-46 [facility] Comment on above: Performed By: #### 2 923700, 0793905, 4633649, 8618262, 5426553, 14853030 ####[facility] [address] [place] [address] AST [Catalytic activity/Vol] 20 Int._Unit/L Normal 5-43 [facility] Comment on above: Performed By: #### 2 547052, 9815109, 0554782, 7913967, 8074457, 71537395 ####[facility] [address] [place] [address] Bilirubin [Mass/Vol] 0.1 mg/dL Normal 0.0-1.1 [facility] Comment on above: Performed By: #### 2 988840, 9259988, 3832085, 4631354, 9473201, 20592631 ####[facility] [address] [place] [address] Creatinine [Mass/Vol] 0.6 mg/dL Normal 0.5-1.3 [facility] Comment on above: Performed By: #### 2 111622, 9320929, 9754358, 8500611, 6875712, 92026544 ####[facility] [address] [place] [address] Globulin (S) [Mass/Vol] 3.2 g/dL Normal 1.4-4.0 [facility] Comment on above: Performed By: #### 2 549099, 4606498, 3194110, 0679858, 6669155, 09060669 ####[facility] [address] [place] [address] Protein [Mass/Vol] 7.3 g/dL Normal 6.0-7.8 [facility] Comment on above: Performed By: #### 2 556212, 6717624, 9759085, 9448387, 0714401, 31775691 ####[facility] [address] [place] [address] Urea nitrogen [Mass/Vol] 15 mg/dL Normal 5-21 [facility] Comment on above: Performed By: #### 2 822896, 2345838, 1963773, 0727371, 5576600, 53165730 ####[facility] [address] [place] [address] Urea nitrogen/Creatinine [Mass ratio] 25 No Units High 10-20 [facility] Comment on above: Performed By: #### 2 479395, 6213183, 2469802, 3147925, 9552730, 24373414 ####[facility] [address] [place] [address] Anion gap [Moles/Vol] 13 mmol/L Normal 6-16 [facility] Comment on above: Performed By: #### 2 735844, 7683577, 4481565, 8240834, 2605927, 78958857 ####[facility] [address] [place] [address] Calcium [Mass/Vol] 9.3 mg/dL Normal 8.9-11.1 [facility] Comment on above: Performed By: #### 2 940378, 9747413, 3144984, 7004609, 4790735, 26051968 ####[facility] [address] [place] [address] Chloride [Moles/Vol] 107 mmol/L Normal 101-111 [facility] Comment on above: Performed By: #### 2 830637, 2039268, 0654881, 5340220, 9730043, 22447786 ####[facility] [address] [place] [address] CO2 [Moles/Vol] 23 mmol/L Normal 21-31 [facility] Comment on above: Performed By: #### 2 176155, 5455662, 3369516, 0578630, 7284115, 01817112 ####[facility] [address] [place] [address] Glucose [Mass/Vol] 91 mg/dL Normal 55-199 [facility] Comment on above: Result Comment: If t his glucose result represents a fasting glucose, interpretation should refer to the following reference range: 55-99 mg/dL Performed By: #### 2 741831, 5400754, 4701722, 2075907, 1766391, 41544921 ####[facility] [address] [place] [address] Potassium [Moles/Vol] 3.6 mmol/L Normal 3.5-5.3 [facility] Comment on above: Performed By: #### 2 316329, 0586892, 9096944, 0230042, 0565122, 90644571 ####[facility] [address] [place] [address] Sodium [Moles/Vol] 139 mmol/L Normal 135-145 [facility] Comment on above: Performed By: #### 2 258599, 8729820, 6512243, 4255408, 5688442, 07358003 ####[facility] [address] [place] [address] Consent for Treatmenton 05-16 Consent for Treatment [id number] D:127 Normal [facility] ED Clinical Summaryon 2022 ED Clinical Summary (Inserted Image. Jordana ble to display) [address] [address] ED Clinical Summary Person Information Name: SHAZIA CHOU [place]/[facility] Age: 32 Years : 1990 Sex: Female Language: Guinean PCP: Jennie Durand DO Marital Status: Phone: [phone] MRN: Visit Id: Visit Reason: Headache; HEADACHE [...] 06/09/2023 18:42:22 06/09/2023 18:42:22 06/09/2023 18:42:22 ADDRESS: [address] [place] [phone] PHYS DOC NOTES: MEDICAL INFORMATION: Prescriptions Given: [...] (at bedtime). PATIENT EDUCATION INFORMATION: Instructions: Paresthesia, Jmap-um-Gdmm; Migraine Headache, Xmwb-jf-Jfci Follow up: With: Address: When: [facility] In 3 days 06/12/2023 With: Address: When: Jennie Robertson, Mic C, [facility] [address] [place] [address] Business (1) In 3 days 06/12/2023 DIAGNOSIS: 1:Headache; 2:Paresthesia of arm Normal [facility] ED Patient Education Noteon 09-26-2023 ED Patient Education Note Neurology Paresthesia Paresthesia [...] liquor (44 mL). General instructions ? Take wcqz-qpa-kzflqru and prescription medicines only as told by [...] provider. Document Revised: 05/12/2022 Document Reviewed: 05/12/2022 [employer] Patient Education ? 2022 [employer] Migraine Headache A migraine headache is a [...] ? Tiredness. (more content not included)... Normal [facility] ED Patient Summaryon 023 ED Patient Summary (Inserted Image. Jordana ble to display) [address] [address] Patient Discharge Instructions Person Information Name: SHAZIA CHOU Age: 32 Years Arrival Date: 06/09/2023 15:33:36 Discharge Diagnosis: 1:Headache; 2:Paresthesia of arm Primary Care Physician: Jennie Durand DO Provider Information Primary Provider: Alexis Shukla DO Advanced Apprentice Carpenter:None The exam and treatment you received in the Emergency Department were for an urgent problem and are not intended as complete care. It is important that you follow up with a doctor, nurse practitioner, or physician?s assistant printer floor covering for ongoing care. If your symptoms become worse or you do not improve as expected and you are unable to reach your usual health care provider, you should return to the Emergency Department. We are available 24 hours a day. JOSÉ ANTONIO SHAZIA Isreal has been given the following list of patient education materials, prescriptions and follow-up instructions: Follow-up Instructions: With: Address: When: [facility] In 3 days 06/12/2023 With: Address: When: Jennie Durand [address] [place] [address] Ailyn, Mic C, [facility] [address] [place] [address] [facility] (1) In 3 days 06/12/2023 In the event that this physician does not participate in your insurance network, please consult with your insurance company to find a nearby participating provider. Patient Education Materials: Paresthesia, Hpna-to-Adtc; Migraine Headache, Sgpf-ci-Zxfy A MESSAGE TO ALL PATIENTS REGARDING OPIOIDS PRESCRIPTION OPIOIDS: WHAT YOU NEED TO KNOW Prescription opioids can be used to help relieve bzbpfrha-og-yzedvd pain and are often prescribed following a [...] guidance from the Food and Drug Administration (www.fda.gov/Drugs/Reso urcesForYou). ? Visit www.cdc.gov/drugoverdos e to learn about the risks of opioids abuse and overdose. ? If you believe you may be struggling with addiction, tell (more content not included)... Normal [facility] Ethanolon 06-09-2023 Ethanol [Mass/Vol] mg/dL Normal <=7 [facility] Comment on above: Performed By: #### 2 074544 ####[facility] [address] [place] [address] Salicylateon 06-09-2023 Salicylates [Mass/Vol] mg/dL Low 6-29 [facility] Comment on above: Performed By: #### 2 895884, 0084758, 9815726, 5757277, 4228711, 90180712 ####[facility] [address] [place] [address] U Drug Screenon 06-09-2023 Amphetamines Screen method >1000 ng/mL Ql (U) Negative Normal Negative [facility] Comment on above: Result Comment: Nega tive Cutoff: <1000 ng/mL Performed By: #### 2 733932 ####[facility] [address] [place] [address] Barbiturates Screen Ql (U) Negative Normal Negative [facility] Comment on above: Result Comment: Nega tive Cutoff: <200 ng/mL Performed By: #### 2 872256 ####[facility] [address] [place] [address] Benzodiazepines Ql (U) Negative Normal Negative Fi [facility] Comment on above: Result Comment: Nega tive Cutoff: <200 ng/mL Performed By: #### 2 786162 ####[facility] [address] [place] [address] Cocaine Ql (U) Negative Normal Negative [facility] Comment on above: Result Comment: Nega tive Cutoff: <300 ng/mL Performed By: #### 2 723781 ####[facility] [address] [address] Opiates Screen Ql (U) Negative Normal Negative Fis [facility] Comment on above: Result Comment: Nega tive Cutoff: <300 ng/mL Performed By: #### 2 071540 ####[facility] [address] [place] [address] Phencyclidine Screen method >25 ng/mL Ql (U) Negative Normal Negative [facility] Comment on above: Result Comment: Nega tive Cutoff: <25 ng/mL These drug screen results are to be used for medical (i.e., treatment) purposes only. Unconfirmed drug screening results must not be used for non-medical purposes (e.g., employment testing, legal testing). Performed By: #### 2 036257 ####[facility] [address] [place] [place] [address] Tetrahydrocannabinol Screen method >50 ng/mL Ql (U) Negative Normal Negative [facility] Comment on above: Result Comment: Nega tive Cutoff: <50 ng/mL Performed By: #### 2 703401 ####[facility] [address] [place] [address] UA With Cult Reflexon 2022 Bilirubin Ql (U) Negative Normal Negative [facility] Comment on above: Performed By: #### 1 0542504 #### [facility] [address] [place] [address] Clarity (U) CLEAR Normal Clear [facility] Comment on above: Performed By: #### 1 1370275 #### [facility] [address] [place] [address] Color (U) YELLOW Normal Yellow [facility] Comment on above: Performed By: #### 1 3761127 #### [facility] [address] [place] [address] Crystals LM Ql (Urine sed) Present Normal [facility] Comment on above: Performed By: #### 1 [id number] #### [facility] [address] [place] [address] Epithelial cells.squamous LM.HPF (Urine sed) [#/Area] 0-2 Normal 0-2 [facility] Comment on above: Performed By: #### 1 7294707 #### [facility] [address] [place] [address] Glucose Test strip (U) [Mass/Vol] Negative Normal Negative [facility] Comment on above: Performed By: #### 1 [id number] #### [facility] [address] [place] [address] Hemoglobin Ql (U) Negative Normal Negative [facility] Comment on above: Performed By: #### 1 7468277 #### [facility] [address] [place] [address] Ketones (U) [Mass/Vol] Negative Normal Negative Fi [facility] Comment on above: Performed By: #### 1 0595582 #### [facility] [address] [place] [address] Sharpes.plasma/Sharpes .RBC (Bld) [Mass ratio] 0-3 Normal 0-3 [facility] Comment on above: Performed By: #### 1 8007012 #### [facility] [address] [place] [address] Nitrite Ql (U) Negative Normal Negative [facility] Comment on above: Performed By: #### 1 8525558 #### [facility] [address] [place] [address] pH (U) 6.0 [pH] Invalid Interpretation Code 5.0-9.0 [facility] Comment on above: Performed By: #### 1 [id number] #### [facility] [address] [place] [address] Protein (U) [Mass/Vol] Negative Normal Negative [facility] Comment on above: Performed By: #### 1 0561522 #### [facility] [address] [place] [address] Specific gravity (U) [Rel density] 1.010 Invalid Interpretation Code 1.005-1.030 [facility] Comment on above: Performed By: #### 1 4886972 #### [facility] [address] [place] [address] Type of Urine collection method Clean Catch Normal [facility] Comment on above: Performed By: #### 1 0123579 #### [facility] [address] [place] [address] Urobilinogen Qn (U) 0.2 {Lucila'U}/dL Normal 0.0-1.0 [facility] Comment on above: Performed By: #### 1 7342572 #### [facility] [address] [place] [address] WBC Auto Ql (U) Negative Normal Negative [facility] Comment on above: Performed By: #### 1 7569782 #### [facility] [address] [place] [address] WBC LM.HPF (Urine sed) [#/Area] 0-5 Normal 0-5 [facility] Comment on above: Performed By: #### 1 3867853 #### [facility] [address] [place] [address] eGFRon 06-09-2023 GFR/1.73 sq M.predicted among non-blacks MDRD (S/P/Bld) [Vol rate/Area] 121 mL/min/1.73 m2 Normal >=59 [facility] Comment on above: Order Comment: Order added by Discern Expert. Result Comment: [employer] Spring Machine Operator gurpreet kidney disease could be indicated at eGFR's of less than 60 mL/min/1.73m2. Kidney failure is indicated at less than 15 mL/min/1.73m2. Performed By: #### 2 736918, 8112608, 1327455, 5481115, 9947050, 33969466 ####[facility] [address] [place] [address] Vit Aon 03-24-2023 Retinol [Mass/Vol] 42.9 microgram/dL Invalid Interpretation Code 18.9-57.3 [facility] Comment on above: Result Comment: Refe rence intervals for vitamin A determined from [facility] internal studies. Individuals with vitamin A less than 20 ug/dL are considered vitamin A deficient and those with serum concentrations less than 10 ug/dL are considered severely deficient. This test was developed and its performance characteristics determined by [facility]. It has not been cleared or approved by the Food and Drug Administration. Performed at: [address] [id number] MD Shorty Rodríguez Performed By: #### 2 686360, 05467755, 5365952, 4242811, 39525951, 82718882, 623908862, 7755727, 8313146, 86999513, 4877195, 1885506, 105875384, 42152619, 7628564, 0127985, 3981792, 0407813 ####[facility] [address] [place] [address] Vit B1on 03-24-2023 Thiamine (Bld) [Moles/Vol] 171.7 nmol/L Invalid Interpretation Code 66.5-200.0 [facility] Comment on above: Result Comment: This test was developed and its performance characteristics determined by [facility]. It has not been cleared or approved by the Food and Drug Administration. Performed at: [address] [id number] MD Shorty Rodríguez Performed By: #### 2 755176, 83516479, 7278942, 7572397, 25179880, 45743512, 995506468, 8811661, 2575652, 64367567, 8387244, 4953963, 536028749, 71566231, 5058819, 0953189, 0714762, 7773100 ####[facility] [address] [place] [address] Zinc Lvlon 03-24-2023 Zinc [Mass/Vol] 85 microgram/dL Invalid Interpretation Code 44-128 [facility] Comment on above: Result Comment: This test was developed and its performance characteristics determined by [facility]. It has not been cleared or approved by the Food and Drug Administration. Detection Limit = 5 Performed at: [address] [id number] MD Shorty Rodríguez Performed By: #### 2 080214, 78288234, 9123953, 3669520, 97829615, 99248081, 153987394, 6935769, 2995520, 35830381, 6324584, 4555591, 944944301, 45730910, 6925892, 8564440, 6318620, 6717966 ####[address] [place] [address] PTH Intacton 03-20-2023 Parathyrin.intact [Mass/Vol] 17 pg/mL Invalid Interpretation Code 15 [facility] Comment on above: Result Comment: Perf ormed at: [facility] [id number] PhD Cordelia Madera Performed By: #### 1 0404788 ####[address] [place] [address] Auto Diffon 03-19-2023 Basophils/100 WBC (Bld) 1.1 % Normal 0.0-2.0 [facility] Comment on above: Order Comment: Order Added by Discern Expert. Performed By: #### 2 745525, 23379731, 5615746, 5100441, 28157209, 17183128, 605912886, 0427515, 6002428, 02590468, 3751202, 3725423, 826462023, 56030549, 3435471, 9402119, 3411752, 8335804 ####[facility] [address] [place] [address] Basophils/Leukocytes Auto (Bld) [Pure # fraction] 0.1 E9/L Normal 0.0-0.2 [facility] Comment on above: Order Comment: Order Added by Discern Expert. Performed By: #### 2 268708, 05003565, 8734110, 4904254, 23519215, 74502548, 416377845, 7722396, 1393102, 63007511, 3371292, 2491507, 163483546, 94131590, 9039284, 7274649, 0898279, 7133627 ####[address] [place] [address] Eosinophils/100 WBC (Bld) 4.1 % Normal 0.0-8.0 [facility] Comment on above: Order Comment: Order Added by Discern Expert. Performed By: #### 2 619943, 63423812, 2020662, 2044340, 79896621, 18548525, 698356708, 5039182, 5052931, 61614186, 9200878, 7772491, 570689881, 69272613, 0832508, 3428527, 9002414, 7714628 ####[address] [place] [address] Eosinophils/Leukocytes Auto (Bld) [Pure # fraction] 0.4 E9/L Normal 0.0-0.5 [facility] Comment on above: Order Comment: Order Added by Discern Expert. Performed By: #### 2 022280, 63023335, 4664953, 6668446, 59776935, 19497480, 822598851, 4071255, 1166796, 06827590, 4058427, 7476080, 551540494, 27087689, 0247555, 6625421, 1517107, 1204275 ####[address] [place] [address] Lymphocytes/100 WBC (Bld) 20.5 % Normal 14.0-50.0 [facility] Comment on above: Order Comment: Order Added by Discern Expert. Performed By: #### 2 148489, 90216845, 7258522, 0198930, 97177827, 41039718, 677085875, 3991072, 4379193, 90465897, 6259612, 2580372, 739067517, 26781558, 0706613, 0915136, 7017234, 2795924 ####[facility] [address] [place] [address] Lymphocytes/Leukocytes Auto (Bld) [Pure # fraction] 2.1 E9/L Normal 1.0-4.0 [facility] Comment on above: Order Comment: Order Added by Discern Expert. Performed By: #### 2 498848, 11137856, 4355516, 0399950, 92477334, 17245238, 576268213, 0511552, 3356034, 30329265, 8626867, 2442001, 993239714, 69679663, 1282665, 3773375, 4745290, 4127786 ####[address] [place] [address] Monocytes/100 WBC (Bld) 7.6 % Normal 4.0-14.0 [facility] Comment on above: Order Comment: Order Added by Discern Expert. Performed By: #### 2 903129, 79255924, 2246792, 0146502, 41137779, 48483648, 254353475, 1216795, 7167378, 98498966, 4444252, 0157117, 603982244, 21085945, 1902285, 9086258, 2581886, 9958675 ####[address] [place] [address] Monocytes/Leukocytes Auto (Bld) [Pure # fraction] 0.8 E9/L Normal 0.2-1.0 [facility] Comment on above: Order Comment: Order Added by Discern Expert. Performed By: #### 2 717919, 57608585, 0537033, 9122569, 12436478, 97452415, 080774180, 5291499, 7091653, 88810150, 6726835, 9354795, 386897007, 89991807, 1281579, 1911273, 9423811, 7752193 ####[facility] [address] [place] [address] Neutrophils/100 WBC (Bld) 66.7 % Normal 36.0-75.0 [facility] Comment on above: Order Comment: Order Added by Discern Expert. Performed By: #### 2 668731, 67939035, 6922049, 8562361, 49032203, 75604622, 680235375, 1390011, 0534113, 87450470, 2376504, 1517773, 553732444, 79625422, 4864976, 2601959, 7570976, 9221463 ####[address] [place] [address] Neutrophils/Leukocytes Auto (Bld) [Pure # fraction] 6.8 E9/L Normal 2.0-7.5 [facility] Comment on above: Order Comment: Order Added by Discern Expert. Performed By: #### 2 692950, 71066521, 7330325, 1650388, 61015629, 54857645, 392211382, 0345859, 8311012, 18028457, 2675631, 6571197, 430889095, 32223749, 0375243, 8543143, 6803922, 2912187 ####[address] [place] [address] CBC w/ Auto Diffon 3 Erythrocyte distribution width (RBC) [Ratio] 16.0 % High 10.9-14.2 [facility] Comment on above: Performed By: #### 2 020728, 90209978, 9482011, 9870218, 04628556, 11335433, 211407157, 7005318, 7973185, 67799303, 1743177, 4057103, 734000641, 60195645, 5679356, 6321945, 7085977, 7030763 ####[facility] [address] [place] [address] Hematocrit (Bld) [Volume fraction] 37.1 % Normal 34.0-46.0 [facility] Comment on above: Performed By: #### 2 521056, 91478862, 1023283, 7125666, 93970644, 64626418, 330123470, 5823763, 4044878, 74814748, 0559809, 0106074, 221653197, 70288708, 4029793, 1330907, 0976523, 2912130 ####[facility] [address] [place] [address] Hemoglobin (Bld) [Mass/Vol] 12.6 g/dL Normal 12.0-16.0 [facility] Comment on above: Performed By: #### 2 103289, 01874709, 8128638, 4591111, 37006567, 63057066, 586493245, 1373660, 4250503, 85976829, 0482489, 7340496, 075628642, 62029156, 2353325, 6023533, 7627393, 1607395 ####[address] [place] [address] MCH (RBC) [Entitic mass] 31.2 pg Normal 27.0-34.0 [facility] Comment on above: Performed By: #### 2 127435, 00269511, 9583310, 6132366, 42263624, 98248124, 338262258, 7319493, 2527679, 20952203, 9413421, 7720140, 121905073, 76956380, 7843806, 3230577, 4873592, 5923569 ####[facility] [address] [place] [address] MCHC (RBC) [Mass/Vol] 33.9 g/dL Normal 31.4-36.0 [facility] Comment on above: Performed By: #### 2 352344, 29295329, 0334756, 9245717, 32918807, 47913280, 470644396, 1657293, 4782121, 85026830, 8697626, 0613388, 813053734, 86948080, 6406205, 8323893, 8006454, 6311391 ####[facility] [address] [place] [address] MCV (RBC) [Entitic vol] 92.0 fL Normal 80.0-100.0 [facility] Comment on above: Performed By: #### 2 740207, 54381063, 1691701, 1188073, 52162351, 12658676, 749358107, 9934744, 6746252, 79709117, 2526159, 7272533, 909963300, 02132555, 0646685, 5208533, 1120115, 1293385 ####[facility] [address] [place] [address] Platelet mean volume (Bld) [Entitic vol] 9.8 fL Normal 6.4-10.8 [facility] Comment on above: Performed By: #### 2 972952, 20612325, 9173032, 7304034, 43103655, 56770666, 673324022, 8816570, 3446300, 39484306, 2961702, 7807764, 464221609, 68206618, 9342350, 8760607, 5184230, 4124435 ####[address] [place] [address] Platelets (Bld) [#/Vol] 369.0 E9/L Normal 150.0-500.0 [facility] Comment on above: Performed By: #### 2 267171, 54071384, 7671318, 4490228, 38121843, 51602436, 089146398, 9699759, 0979189, 60830565, 2975818, 9775613, 473454637, 58573570, 1814155, 5567550, 3882515, 4864399 ####[facility] [address] [place] [address] RBC (Bld) [#/Vol] 4.0 E12/L Low 4.3-5.9 [facility] Comment on above: Performed By: #### 2 701284, 50994499, 2544904, 4926614, 21683558, 44753455, 454181204, 6954070, 4191505, 23491364, 8769222, 0815203, 554792146, 90921939, 6350103, 9467735, 3015216, 4647488 ####[facility] [address] [place] [address] WBC corrected for nucl RBC Auto (Bld) [#/Vol] 10.1 E9/L Normal 4.0-11.0 [facility] Comment on above: Performed By: #### 2 137937, 79986025, 7454598, 7864191, 08799422, 71254564, 619367580, 0560668, 2552226, 20847424, 6078841, 9072473, 221015398, 04708000, 5313682, 1508946, 5962053, 1287053 ####[facility] [address] [place] [address] CHEMISTRYOrdered By: SYSTEM SYSTEM on 03-19-2023 25-hydroxyvitamin [...] [Mass fraction] 5.8 % Normal <=5.9% [facility] ChemAutoSS CMPon 03-19-2023 Albumin [Mass/Vol] 4.0 g/dL Normal 3.3-5.0 [facility] Comment on above: Performed By: #### 2 277472, 54556515, 9286794, 6930431, 21420888, 91012225, 720312418, 6580951, 5778064, 79252726, 0677802, 0186725, 859021421, 78791802, 8069825, 9305749, 6576584, 5342397 ####[facility] [place] [address] Albumin/Globulin (S) [Mass conc ratio] 1.2 Normal 1.1-2.2 [facility] Comment on above: Performed By: #### 2 551886, 60930560, 8817680, 1593214, 90160337, 67814426, 248995340, 2180670, 6654761, 06845811, 3912568, 5367341, 425894106, 83423659, 1655825, 9921234, 5000221, 2452149 ####[facility] [address] [place] [address] ALP [Catalytic activity/Vol] 61 Int._Unit/L Normal 21-98 [facility] Comment on above: Performed By: #### 2 494087, 50186657, 1612878, 2079466, 84722068, 56383821, 735809610, 8909076, 1141073, 74331211, 4853798, 1420409, 904611416, 05297876, 5476445, 6212279, 3044897, 6938632 ####[address] [place] [address] ALT No additional P-5'-P [Catalytic activity/Vol] 17 Int._Unit/L Normal 6-46 [facility] Comment on above: Performed By: #### 2 037633, 24733008, 2104554, 1051142, 22931569, 51713582, 404845154, 3172513, 8658808, 54626512, 2132394, 4266593, 554965428, 19547398, 1839041, 4556206, 9520010, 5989798 ####[address] [place] [address] Anion gap [Moles/Vol] 9 mmol/L Normal 6-16 [facility] Comment on above: Performed By: #### 2 368665, 04689243, 1360882, 4033757, 06572045, 45297032, 415835429, 8047317, 1192582, 98257132, 2492947, 2152460, 093369752, 16866415, 9748358, 8447412, 9187250, 7967177 ####[address] [place] [address] AST [Catalytic activity/Vol] 20 Int._Unit/L Normal 5-43 [facility] Comment on above: Performed By: #### 2 150207, 40815171, 5269421, 1146100, 03048488, 92193763, 087531689, 3965421, 3643295, 14365604, 2107660, 9500950, 979544145, 59253570, 9941855, 5216659, 7553183, 2417842 ####[facility] [address] [place] [address] Bilirubin [Mass/Vol] 0.4 mg/dL Normal 0.0-1.1 [facility] Comment on above: Performed By: #### 2 104648, 12228776, 6398204, 8837036, 78753825, 42874186, 889165733, 7586480, 0038174, 64749895, 5171058, 6815958, 793348892, 12453867, 0072298, 7565915, 4015222, 3914192 ####[address] [place] [address] Calcium [Mass/Vol] 9.2 mg/dL Normal 8.9-11.1 [facility] Comment on above: Performed By: #### 2 050674, 47449514, 3308958, 6605958, 89293505, 78202348, 786293294, 5201932, 9895251, 76463319, 4871088, 0293785, 528920715, 49972062, 7820184, 7707333, 0932286, 7713854 ####[address] [place] [address] Chloride [Moles/Vol] 113 mmol/L High 101-111 [facility] Comment on above: Performed By: #### 2 841319, 24840342, 0019231, 9184297, 58451235, 35862831, 304237251, 0622850, 1685032, 03706438, 0428157, 9784145, 718902766, 95036456, 3246149, 0411608, 5847178, 2015435 ####[facility] [address] [place] [address] CO2 [Moles/Vol] 22 mmol/L Normal 21-31 [facility] Comment on above: Performed By: #### 2 362941, 48304399, 7594265, 4487873, 70339672, 86370101, 282173408, 4134720, 5069873, 61764643, 3040743, 3474892, 497011199, 65022700, 4427669, 4660404, 0609004, 3597324 ####[facility] [address] [place] [address] Creatinine [Mass/Vol] 0.7 mg/dL Normal 0.5-1.3 [facility] Comment on above: Performed By: #### 2 108492, 49120108, 3341069, 0483736, 29319561, 71290266, 450452041, 4265344, 5002626, 72818472, 7124236, 8721419, 044793681, 23654395, 9689540, 8893237, 6688396, 9214021 ####[facility] [address] [place] [address] Globulin (S) [Mass/Vol] 3.2 g/dL Normal 1.4-4.0 [facility] Comment on above: Performed By: #### 2 332077, 64197111, 5887704, 2994992, 22765667, 81270488, 393772832, 4368112, 7725110, 32279019, 2425407, 8944370, 297415410, 57093738, 0734854, 4824963, 3265830, 2408365 ####[facility] [address] [place] [address] Glucose [Mass/Vol] 103 mg/dL Normal 55-199 [facility] Comment on above: Result Comment: If t his glucose result represents a fasting glucose, interpretation should refer to the following reference range: 55-99 mg/dL Performed By: #### 2 653480, 52858127, 7729145, 1224548, 10412408, 88212410, 909930265, 0617273, 9270402, 32053492, 6557698, 8447190, 892300080, 42315374, 0669928, 9436830, 7573608, 0178921 ####[facility] [address] [place] [address] Potassium [Moles/Vol] 3.8 mmol/L Normal 3.5-5.3 [facility] Comment on above: Performed By: #### 2 203630, 16256749, 9734137, 4724446, 69586809, 42079487, 390370210, 5864110, 5610496, 32976585, 5316668, 6425884, 993444602, 01131141, 5268724, 4689777, 0754967, 2222397 ####[facility] [address] [place] [address] Protein [Mass/Vol] 7.2 g/dL Normal 6.0-7.8 [facility] Comment on above: Performed By: #### 2 473662, 41441743, 6319336, 9679585, 53996008, 24280893, 796886834, 5212254, 3690188, 63254839, 2680968, 7105887, 978002605, 64926082, 3514459, 5662588, 2144136, 1605800 ####[facility] [address] [place] [address] Sodium [Moles/Vol] 140 mmol/L Normal 135-145 [facility] Comment on above: Performed By: #### 2 [id number], [id number], 5164232, 4922328, 84802382, 24777888, 438232619, 0997572, 0883528, 75915125, 2907150, 8823691, [id number], 44361690, 4886286, 9281004, 5917051, 5702788 ####[facility] [address] [place] [address] Urea nitrogen [Mass/Vol] 12 mg/dL Normal 5-21 [facility] Comment on above: Performed By: #### 2 207292, 25360455, 3014734, 9686755, 85503635, 23127051, 100413725, 4307169, 8056988, 87033775, 4636686, 2622830, [id number], 19543730, 2764479, 9799606, [id number], [id number] ####[facility] [address] [place] [address] Urea nitrogen/Creatinine [Mass ratio] 17 No Units Normal 10-20 [facility] Comment on above: Performed By: #### 2 445864, 84858049, 1817982, 7709690, 34100311, 29953963, 995630554, 9240831, 1707082, 70085729, 6372302, 5780832, 168761936, 56119273, 7940385, 5193793, 1364180, 7110574 ####[facility] [address] [place] [address] Consent for Treatmenton Consent for Treatment [id number] D:127 Normal [facility] Ferritinon 03-19-2023 Ferritin [Mass/Vol] 6 ng/mL Low 11-307 [facility] Comment on above: Result Comment: NORM ALS MEN <30 YRS 16-132 ng/mL MEN >30 YRS 8-338 ng/mL WOMEN (PREMEN) 6-104 ng/mL WOMEN (POSTMEN) 12-210 ng/mL Performed By: #### 2 386994, 00675138, 9201476, 4108068, 20102840, 56330221, 379992167, 6372749, 4784510, 93207535, 8951543, 4963018, 162220397, 53479110, 9949072, 3909040, 0971896, 9198921 ####[facility] [address] [place] [address] Folateon 03-19-2023 Folate [Mass/Vol] 15.6 ng/mL Normal >=6.7 [facility] Comment on above: Performed By: #### 2 684084, 84877619, 7515574, 1683518, 73369722, 87476067, 664857568, 8909351, 1299334, 33695166, 6419366, 9169806, 893968581, 67214335, 7331434, 8617615, 7803511, 2452210 ####[facility] [address] [place] [address] Free T4on 03-19-2023 Free T4 [Mass/Vol] 0.88 ng/dL Normal 0.58-1.64 [facility] Comment on above: Performed By: #### 2 752804, 84020050, 1047921, 9025136, 40879746, 70579086, 321787230, 2143843, 6204475, 45135249, 3232551, 1497931, 844216042, 00461344, 8308368, 4463867, 6907493, 7694380 ####[facility] [address] [place] [address] HEMATOLOGYOrdered By: SYSTEM SYSTEM on 03-19-2023 Basophils/100 [...] Normal 4.0 - 11.0 E9/L FT HemeAutoSS WaiE0ezw 03-19-2023 HbA1c (Bld) [Mass fraction] 5.8 % Normal <=5.9 [facility] Comment on above: Performed By: #### 2 746740, 51798336, 5063789, 0729381, 09276141, 24700521, 031084750, 6995262, 4958363, 58508311, 9889831, 9843018, 803415514, 96814414, 4917055, 4395629, 1558935, 6188495 ####[facility] [address] [place] [address] Ironon 03-19-2023 Iron [Mass/Vol] 69 microgram/dL Normal 35-153 [facility] Comment on above: Performed By: #### 2 418885, 63272745, 7657312, 5606312, 38549895, 83956483, 376760573, 4052977, 7737739, 83003242, 0457656, 8913773, 447531143, 74577621, 3937563, 7899335, 6445827, 9822331 ####[facility] [address] [place] [address] Lipid Panelon 03-19-2023 Cholesterol [Mass/Vol] 167 mg/dL Normal 120-200 [facility] Comment on above: Performed By: #### 2 628406, 19646769, 4661758, 9186856, 35209958, 90533159, 167451970, 6042143, 2480094, 64156716, 2664886, 9072764, 478353738, 03365983, 0474761, 7375205, 1356619, 5254339 ####[facility] [address] [place] [address] Cholesterol in HDL [Mass/Vol] 72 mg/dL Invalid Interpretation Code [facility] Comment on above: Result Comment: HDL > or equal to 60 mg/dL: Low cardiovascular risk HDL < 40 mg/dL : High cardiovascular risk Performed By: #### 2 535953, 01657959, 5624075, 6030253, 39352185, 99315585, 933031921, 0158646, 6754287, 41423660, 5894471, 7245289, 315582779, 99443964, 9197036, 3940978, 2941118, 1419932 ####[facility] [address] [place] [address] Cholesterol in LDL [Mass/Vol] 72 mg/dL Normal <=129 [facility] Comment on above: Performed By: #### 2 804570, 91751426, 8451704, 3752832, 15449616, 81340594, 216960981, 1999912, 6418808, 90768930, 8964419, 3151386, 146933288, 42094452, 6773127, 0833634, 2002739, 1747813 ####[facility] [address] [place] [address] Cholesterol in VLDL [Mass/Vol] 14 mg/dL Normal 7-40 [facility] Comment on above: Performed By: #### 2 406587, 96095641, 3421616, 1265744, 65912323, 38617694, 416460394, 3900388, 8906407, 70511171, 0980586, 6714193, 831719846, 57135009, 7279836, 9862089, 2249445, 4094921 ####[facility] [address] [place] [address] Triglyceride [Mass/Vol] 69 mg/dL Normal <=149 [facility] Comment on above: Performed By: #### 2 072487, 37676731, 7120103, 0300841, 59499415, 48459867, 970856351, 6146623, 3885031, 14933834, 8493304, 3773929, 614470507, 38333726, 9395971, 5363488, 6532567, 8391377 ####[facility] [address] [place] [address] Magnesiumon 03-19-2023 Magnesium [Mass/Vol] 2.0 mg/dL Normal 1.3-2.4 [facility] Comment on above: Performed By: #### 2 757366, 44087638, 2816300, 0319826, 07692174, 67730305, 984197955, 0457138, 7532966, 65453505, 4978965, 0909877, 352847141, 14963924, 8149878, 6538510, 8270310, 7453078 ####[facility] [address] [place] [address] Physician Orderon 03-19-2023 Physician Order [id number] CD:127 Normal [facility] TIBC Calculatedon 03-19-2023 Iron binding capacity [Mass/Vol] 423 microgram/dL High 250-400 [facility] Comment on above: Performed By: #### 2 933142, 15326037, 7374614, 9796211, 46256566, 97621667, 539612265, 5833565, 2220875, 43429136, 5961109, 3013508, 736935409, 05713789, 2540120, 4460487, 5387007, 3633690 ####[facility] [address] [place] [address] Transferrin [Mass/Vol] 302 mg/dL Normal 200-370 [facility] Comment on above: Performed By: #### 2 882730, 70519456, 0186483, 0632287, 12673014, 45448937, 005658532, 8405060, 5228922, 58372477, 2509323, 0441264, 072385768, 33114986, 8257632, 2911765, 3656308, 5465052 ####[facility] [address] [place] [address] TSHon 03-19-2023 TSH Qn 0.61 m[IU]/L Normal 0.34-5.60 [facility] Comment on above: Performed By: #### 2 143745, 87417563, 9695160, 0977981, 66922045, 03884322, 672779652, 5737392, 8386071, 43436695, 8107526, 3399283, 966247528, 64807246, 2937612, 2230522, 9950183, 1655881 ####[facility] [address] [place] [address] Vit B12on 03-19-2023 Cobalamin (Vitamin B12) [Mass/Vol] 357 pg/mL Normal 50-1500 [facility] Comment on above: Performed By: #### 2 359255, 01996258, 2451908, 6174861, 77012946, 80795727, 913450041, 9674866, 7953118, 58771826, 7621681, 4748966, 148510264, 28529697, 4146815, 5334606, 0455890, 7032830 ####[facility] [address] [place] [address] Vitamin D 25 Hydroxyon 03-19 25-hydroxyvitamin D3 [Mass/Vol] 43.1 ng/mL Normal 30.0-100.0 [facility] Comment on above: Result Comment: Vit alberto D deficiency has been defined as a level of serum 25-OH vitamin D less than 20 ng/mL (1,2) by the [employer] of [employer] and an Endocrine Society practice guideline. The Endocrine Society further defined vitamin D insufficiency as a level between 21 and 29 ng/mL (2). 1. IOM ([employer] of [employer]). 2010. Dietary reference intakes for calcium and D. [place]: The National Academies Press. 2. Willard MF, Luisa NC, Nestor MALDONADO, et al. Evaluation, treatment, and prevention of vitamin D deficiency: an Endocrine Society clinical practice guideline. JCEM. 2010; 96 (7):1911-30. Performed By: #### 2 991062, 41945301, 2883545, 5385997, 88171835, 89889752, 918119698, 2993708, 8531131, 83484244, 9074944, 5293717, 521487854, 96140716, 5663227, 9460276, 1017199, 3124002 ####[facility] [address] [place] [address] eGFRon 03-19-2023 GFR/1.73 sq M.predicted among non-blacks MDRD (S/P/Bld) [Vol rate/Area] 116 mL/min/1.73 m2 Normal >=59 [facility] Comment on above: Order Comment: Order added by Discern Expert. Result Comment: [employer] Machine Operator gurpreet kidney disease could be indicated at eGFR's of less than 60 mL/min/1.73m2. Kidney failure is indicated at less than 15 mL/min/1.73m2. Performed By: #### 2 323258, 90565617, 6013269, 7652798, 87674491, 08808377, 838147417, 1045309, 1600741, 77449306, 7618028, 8960315, 595906990, 70008810, 7078595, 0548089, 0117819, 2205175 ####[facility] [address] [place] [address] MRA Head veins WO and W cont rast Ramón 01-29-2023 IMPRESSION: Unremarkable MRV head with and without contrast. Ladle Repairman: WILLIAM Transcribe Date/Time: Jan 29 2023 2:40P Dictated by : JENNIFER RUVALCABA MD This examination was interpreted and the report reviewed and electronically signed by: JENNIFER RUVALCABA MD on Jan 29 2023 2:44PM [facility] DIVISION OF RADIOLOGY * * *Final Report* * * DATE OF EXAM: Jan 29 2023 1:10PM LN 0336 - MRV BRAIN WO/W IVCON / PROCEDURE REASON: Idiopathic intracranial hypertension * * * * Physician Interpretation * * * * EXAMINATION: MRV BRAIN WO/W IVCON CLINICAL HISTORY: Idiopathic intracranial hypertension. TECHNIQUE: Intracranial 2-D zycb-us-jmxmdy and postcontrast MRV with post-processing performed at the modality and 2D multiplanar and 3D maximum intensity projections were created, reviewed and archived. Contrast dose: 17 mL Dotarem administered intravenously. MQ: MRAB_4 COMPARISON: None. RESULT: INTRACRANIAL MRV: There is no evidence of significant narrowing, occlusion, or thrombosis of the dural venous sinuses. Note is made of a partially empty sella. DIVISION OF RADIOLOGY Provider, Ashwin Olea - 01/29/2023 * * *Final Report* * * DATE OF EXAM: Jan 29 2023 1:10PM LNM 0336 - MRV BRAIN WO/W IVCON / PROCEDURE REASON: Idiopathic intracranial hypertension * * * * Physician Interpretation * * * * EXAMINATION: MRV BRAIN WO/W IVCON CLINICAL HISTORY: Idiopathic intracranial hypertension. TECHNIQUE: Intracranial 2-D lbmj-lz-fqsuxa and postcontrast MRV with post-processing performed at [...] Unremarkable MRV head with and without contrast. Ladle Repairman: PSCB Transcribe Date/Time: Jan 29 2023 2:40P Dictated by : JENNIFER RUVALCABA MD This examination was interpreted and the report reviewed and electronically signed by: JENNIFER RUVALCABA MD on Jan 29 2023 2:44PM EST [facility] Radiology Study observation (narrative) [facility] MRA Head veins WO and W cont rast IVOrdered By: Ccf Provider on 01-29-2023 [facility] CHEMISTRYOrdered By: SYSTEM SYSTEM on 01-15-2023 Albumin [...] hCG Ql Negative (01/15/23 11:31 AM) Normal [facility] URINALYSISOrdered By: Jacki santana on [...] PM) Normal Negative [facility] UA Auto SS Sharpes.plasma/Sharpes .RBC (Bld) [Mass ratio] 0-3 /HPF Normal [...] [facility] UA Auto SS Urobilinogen Qn (U) 0.0206903 {Lucila'U}/dL Normal 0.0 - 1.0 EU/dL [facility] UA Auto SS WBC Auto Ql (U) 1+ *ABN* (01/15/23 12:51 PM) Invalid Interpretation Code Negative [facility] UA Auto SS WBC LM.HPF (Urine sed) [#/Area] 0-5 /HPF Normal 0-5/HPF [facility] UA Auto SS BLOOD BANKOrdered By: Myrna Contreras on 12-05-2022 ABO/Rh Interp Negative Invalid Interpretation Code [facility] BB Subsection ABSC Gel Interp Negative (12/05/22 7:24 AM) Normal [facility] BB Subsection URINALYSISOrdered By: Kimberli Martin on [...] AM) Normal Negative [facility] UA Auto SS Sharpes.plasma/Sharpes .RBC (Bld) [Mass ratio] 0-3 /HPF Normal 0-3/HPF [facility] UA Auto SS Nitrite Ql (U) Negative (12/05/22 10:05 AM) Normal Negative [facility] UA Auto SS pH (U) 6.5 *NA* (12/05/22 10:05 AM) Invalid Interpretation Code 5.0 - 9.0 [facility] UA Auto SS Protein (U) [Mass/Vol] Negative (12/05/22 10:05 AM) Normal Negative [facility] UA Auto SS Specific gravity (U) [Rel density] 1.015 *NA* (12/05/22 10:05 AM) Invalid Interpretation Code 1.005 - 1.030 [facility] UA Auto SS UA Spec Desc Catheter (12/05/22 10:05 AM) Normal [facility] UA Auto SS Urobilinogen Qn (U) 1.1309078 {Lucila'U}/dL Normal 0.0 - 1.0 EU/dL [facility] UA Auto SS WBC Auto Ql (U) Negative (12/05/22 10:05 AM) Normal Negative [facility] UA Auto SS WBC LM.HPF (Urine sed) [#/Area] 0-5 /HPF Normal 0-5/HPF [facility] UA Auto SS CHEMISTRYOrdered By: SYSTEM SYSTEM on 11-21-2022 Anion gap [Moles/Vol] 13 mmol/L Normal 6 - 16 mEq/L [facility] Remisol Chloride [Moles/Vol] 109 mmol/L Normal 101 - 1 11 mmol/L [facility] Remisol CO2 [Moles/Vol] 17 mmol/L Low 21 - 31 mmol/L [facility] Remisol Creatinine [Mass/Vol] 0.6 mg/dL Normal 0.5 - 1.3 mg/dL [facility] Remisol GFR/1.73 sq M.predicted among blacks MDRD (S/P/Bld) [Vol rate/Area] mL/min/1.73 m2 Normal >=59mL/min/1 .73 m2 [facility] Chem S GFR/1.73 sq M.predicted among non-blacks MDRD (S/P/Bld) [Vol rate/Area] mL/min/1.73 m2 Normal >=59mL/min/1 .73 m2 [facility] Chem S Potassium [Moles/Vol] 3.6 mmol/L Normal 3.5 - 5.3 mmol/L [facility] Remisol Sodium [Moles/Vol] 135 mmol/L Normal 135 - 145 mmol/L [facility] Remisol Urea nitrogen [Mass/Vol] 14 mg/dL Normal 5 - 21 mg/dL [facility] Remisol COAGULATIONOrdered By: Genaro Robert on 11-21-2022 [...] CNOV Office Visit (NEADFV ) SHAZIA CHOU ([id number]) 1990 F Date Time Provider Department 11/20/22 8:00 AM EILEEN ALVAREZ DANIEL During your visit today, we recorded the following information about you: Pulse Blood pressure Weight Height 67/minute 137/81 85.7 kg 1.702 m Last Period 10/23/22 Eileen Alvarez MD 11/20/2022 10:33 AM Signed [facility] New Patient Evaluation Consulting [...] due to congenital deformity, seen in the [facility] for: Idiopathic intracranial hypertension [...] her eyes. She has never seen an bottle selector. CSF protein 24, Glu 55, Pro 28, [...] due to congenital deformity, seen in the [facility] for: 1. Idiopathic intracranial [...] she agreed. She needs to follow with bottle selector every 6 months. In some patients with intracranial hypertension, there might be a concurrent transverse sinus stenosis and transverse sinus stenting may resolve the symptoms. I will do MRV. --HTN --H depression --Headache: there are a (more content not included)... Normal [facility] CBC AUTO DIFFon 10-30-2022 BASO # 0.0 103/ul Normal 0.0-0.1 [facility] Comment on above: Performed By: #### C JENNIE PATRICK LIPA #### [facility] [address] [place] [address] Dr. Manuel Sandhu Basophils/100 WBC (Bld) 0.5 % Normal 0.2-2.0 [facility] Comment on above: Performed By: #### C JENNIE APTRICK LIPA #### [facility] [address] [place] [address] Dr. Manuel Sandhu EO # 0.1 103/ul Normal 0.0-0.7 [facility] Comment on above: Performed By: #### C JENNIE PATRICK LIPA #### [facility] [address] [place] [address] Dr. Manuel Sandhu Eosinophils/100 WBC (Bld) 1.6 % Normal 0.9-7.0 [facility] Comment on above: Performed By: #### C JENNIE PATRICK LIPA #### [facility] [address] [place] [address] Dr. Manuel Sandhu Erythrocyte distribution width (RBC) [Ratio] 13.8 % Normal 11.0-15.0 [facility] Comment on above: Performed By: #### C JENNIE PATRICK LIPA #### [facility] [address] [place] [address] Dr. Maunel Sandhu Hematocrit (Bld) [Volume fraction] 38.7 % Normal 36.0-48.0 [facility] Comment on above: Performed By: #### C JENNIE PATRICK LIPA #### [facility] [address] [place] [address] Dr. Manuel Sandhu Hemoglobin (Bld) [Mass/Vol] 12.9 g/dL Normal 12.0-16.0 [facility] Comment on above: Performed By: #### C JENNIE PATRICK LIPA #### [facility] [address] [place] [address] Dr. Manuel Sandhu IG # 0.03 10e3/ul Normal 0.00-0.03 [facility] Comment on above: Performed By: #### C JENNIE PATRICK LIPA #### [facility] [address] [place] [address] Dr. Manuel Sandhu IG % 0.4 % Normal 0.0-0.5 [facility] Comment on above: Performed By: #### C JENNIE PATRICK LIPA #### [facility] [address] [place] [address] Dr. Manuel Sandhu LYMPH # 2.1 103/ul Normal 1.2-3.8 [facility] Comment on above: Performed By: #### C JENNIE PATRICK LIPA #### [facility] [address] [place] [address] Dr. Manuel Sandhu Lymphocytes/100 WBC (Bld) 25.1 % Normal 20.5-60.0 [facility] Comment on above: Performed By: #### C JENNIE PATRICK LIPA #### [facility] [address] [place] [address] Dr. Manuel Sandhu MANUAL DIFF REQ NO Normal [facility] Comment on above: Performed By: #### C JENNIE PATRICK LIPA #### [facility] [address] [place] [address] Dr. Manuel Sandhu MCH (RBC) [Entitic mass] 32.0 pg Normal 26.7-34.0 [facility] Comment on above: Performed By: #### C JENNIE PATRICK LIPA #### [facility] [address] [place] [address] Dr. Manuel Sandhu MCHC (RBC) [Mass/Vol] 33.3 g/dL Normal 29.9-35.2 [facility] Comment on above: Performed By: #### C JENNIE PATRICK LIPA #### [facility] [address] [place] [address] Dr. Manuel Sandhu MCV (RBC) [Entitic vol] 96.0 fL Normal 81.0-99.0 [facility] Comment on above: Performed By: #### C MP, JENNIE, LIPA #### [facility] [address] [place] [address] Dr. Manuel Sandhu MONO # 0.5 103/ul Normal 0.3-0.8 [facility] Comment on above: Performed By: #### C MP, JENNIE, LIPA #### [facility] [address] [place] [address] Dr. Manuel Sandhu Monocytes/100 WBC (Bld) 5.7 % Normal 1.7-12.0 [facility] Comment on above: Performed By: #### C MP, JENNIE, LIPA #### [facility] [address] [place] [address] Dr. Manuel Sandhu NEUT # 5.6 103/ul Normal 1.4-6.5 [facility] Comment on above: Performed By: #### C MP JENNIE, LIPA #### [facility] [address] [place] [address] Dr. Manuel Sandhu Neutrophils/100 WBC (Bld) 66.7 % Normal 43.0-75.0 [facility] Comment on above: Performed By: #### C MP JENNIE, LIPA #### [facility] [address] [place] [address] Dr. Manuel Sandhu Platelet mean volume (Bld) [Entitic vol] 10.9 fL Normal 9.5-13.5 [facility] Comment on above: Performed By: #### C MP, JENNIE, LIPA #### [facility] [address] [place] [address] Dr. Manuel Sandhu PLT 310 103/ul Normal 150-450 [facility] Comment on above: Performed By: #### C MP, JENNIE, LIPA #### [facility] [address] [place] [address] Dr. Manuel Sandhu RBC 4.03 106/ul Critically low 4.20-5.40 [facility] Comment on above: Performed By: #### C MP, JENNIE, LIPA #### [facility] [address] [address] [address] Manuel Sandhu WBC 8.4 103/ul Normal 4.0-11.0 [facility] Comment on above: Performed By: #### C MP JENNIE, LIPA #### [facility] [address] [address] [address] Manuel Sandhu ER URINE PROFILEon 3 Bilirubin Ql (U) Negative Normal NEGATIVE [facility] Comment on above: Performed By: #### U MICRO, ERUR #### [facility] [address] [place] [address] Dr. Manuel Sandhu Clarity (U) CLEAR Normal CLEAR [facility] Comment on above: Performed By: #### U MICRO, ERUR #### [facility] [address] [place] [address] Dr. Manuel Sandhu Color (U) LT. YELLOW Normal YELLOW [facility] Comment on above: Performed By: #### U MICRO, ERUR #### [facility] [address] [address] [address] Manuel CUNHA A micrscopic examination will be performed if indicated. Normal [facility] Comment on above: Performed By: #### U MICRO, ERUR #### [facility] [address] [address] [address] Manuel Sandhu Glucose Ql (U) Negative Normal NEGATIVE [facility] Comment on above: Performed By: #### U MICRO, ERUR #### [facility] [address] [address] [address] Manuel Sandhu Hemoglobin Ql (U) LARGE Abnormal NEGATIVE [facility] Comment on above: Performed By: #### U MICRO, ERUR #### [facility] [address] [address] [address] Manuel Sandhu Ketones Ql (U) Negative Normal NEGATIVE [facility] Comment on above: Performed By: #### U MICRO, ERUR #### [facility] [address] [place] [address] Dr. Manuel Sandhu LEUKOCYTES TRACE Abnormal NEGATIVE [facility] Comment on above: Performed By: #### U MICRO, ERUR #### [facility] [address] [place] [address] Dr. Manuel Sandhu Nitrite Ql (U) Negative Normal NEGATIVE [facility] Comment on above: Performed By: #### U MICRO, ERUR #### [facility] [address] [place] [address] Dr. Manuel Sandhu pH (U) 6.5 [pH] Normal 5-9 [facility] Comment on above: Performed By: #### U MICRO, ERUR #### [facility] [address] [place] [address] Dr. Manuel Sandhu SPEC GRAVITY <=1.005 Abnormal 1.005-<=1.02 5 [facility] Comment on above: Performed By: #### U MICRO, ERUR #### [facility] [address] [place] [address] Dr. Manuel Sandhu UA PROTEIN Negative Normal NEGATIVE/ TRACE [facility] Comment on above: Performed By: #### U MICRO, ERUR #### [facility] [address] [place] [address] Dr. Manuel Sandhu UR MICRO IND INDICATED Normal [facility] Comment on above: Performed By: #### U MICRO, ERUR #### [facility] [address] [place] [address] Dr. Manuel Sandhu Urobilinogen Qn (U) 0.2 {Lucila'U}/dL Normal 0.2 - 1. 0 [facility] Comment on above: Performed By: #### U MICRO, ERUR #### [facility] [address] [place] [address] Dr. Manuel Sandhu PROF CHEM 8 (BAS METB)on Anion gap [Moles/Vol] 11.7 mmol/L Normal [facility] Comment on above: Performed By: #### C MP, JENNIE, LIPA #### [facility] [address] [place] [address] Dr. Manuel Sandhu Calcium [Mass/Vol] 9.1 mg/dL Normal 8.5-10.1 [facility] Comment on above: Performed By: #### C JENNIE PATRICK LIPA #### [facility] [address] [address] [address] Manuel Sandhu Chloride [Moles/Vol] 105 mmol/L Normal 98-107 [facility] Comment on above: Performed By: #### C JENNIE PATRICK LIPA #### [facility] [address] [address] [address] Manuel Sandhu CO2 [Moles/Vol] 26.8 mmol/L Normal 21.0-32.0 [facility] Comment on above: Performed By: #### C JENNIE PATRICK LIPA #### [facility] [address] [place] [address] Dr. Manuel Sandhu Creatinine [Mass/Vol] 0.62 mg/dL Normal 0.55-1.02 [facility] General Comment on above: Performed By: #### C JENNIE PATRICK LIPA #### [facility] [address] [place] [address] Dr. Manuel Sandhu EGFR-AF MARTINIQUAIS >60 Normal >=60 [facility] Comment on above: Performed By: #### C JENNIE PATRICK LIPA #### [facility] [address] [place] [address] Dr. Manuel Sandhu EGFR-NON AF MARTINIQUAIS >60 Normal >=60 [facility] Comment on above: Performed By: #### C JENNIE PATRICK LIPA #### [facility] [address] [place] [address] Dr. Manuel Sandhu Glucose [Mass/Vol] 92 mg/dL Normal 74-106 [facility] Comment on above: Performed By: #### C JENNIE PATRICK LIPA #### [facility] [address] [place] [address] Dr. Manuel Sandhu Potassium [Moles/Vol] 3.5 mmol/L Normal 3.5-5.1 [facility] Comment on above: Performed By: #### C MP, JENNIE, LIPA #### [facility] [address] [address] [address] Manuel Sandhu Sodium [Moles/Vol] 140 mmol/L Normal 136-145 [facility] Comment on above: Performed By: #### C MP, JENNIE, LIPA #### [facility] [address] [place] [address] Dr. Manuel Sandhu Urea nitrogen [Mass/Vol] 8.0 mg/dL Normal 7.0-18.0 [facility] Comment on above: Performed By: #### C JENNIE PATRICK, LIPA #### [facility] [address] [place] [address] Dr. Manuel Sandhu Urea nitrogen/Creatinine [Mass ratio] 12.9 mg/mg Normal [facility] Comment on above: Performed By: #### C JENNIE PATRICK, LIPA #### [facility] [address] [place] [address] Dr. Manuel Sandhu URINE MICROSCOPIC ONLYon BACTERIA NONE SEEN Normal NONE SEEN [facility] Comment on above: Performed By: #### U MICRO, ERUR #### [facility] [address] [place] [address] Dr. Manuel Sandhu Bacteria identified Cx Nom (U) NOT INDICATED Normal [facility] Comment on above: Performed By: #### U MICRO, ERUR #### [facility] [address] [place] [address] Dr. Manuel Sandhu CAST NONE SEEN Normal NONE SEEN [facility] Comment on above: Performed By: #### U MICRO, ERUR #### [facility] [address] [place] [address] Dr. Manuel Sandhu Crystals LM Nom (Urine sed) NONE SEEN Normal NONE SEEN [facility] Comment on above: Performed By: #### U MICRO, ERUR #### [facility] [address] [place] [address] Dr. Manuel Sandhu Epithelial cells LM Ql (Urine sed) FEW Abnormal NONE SEEN /RARE [facility] Comment on above: Performed By: #### U MICRO, ERUR #### [facility] [address] [place] [address] Dr. Manuel Sandhu MUCOUS TRACE Abnormal NONE SEEN [facility] Comment on above: Performed By: #### U MICRO, ERUR #### [facility] [address] [address] [address] Manuel Sandhu RBC 5-10 Abnormal 0-2 [facility] Comment on above: Performed By: #### U MICRO, ERUR #### [facility] [address] [address] [address] Manuel Sandhu WBC 2-5 Abnormal NONE SEEN [facility] Comment on above: Performed By: #### U MICRO, ERUR #### [facility] [address] [address] [address] Manuel Sandhu No Panel InformationOrdered By: Dorita Niño on 08-19-2022 CSF Glucose 55 mg/dL 40-70 [facility] CSF Total Protein 24 mg/dL 15-45 [facility] CBC AUTO DIFFon 08-16-2022 BASO # 0.1 103/ul Normal 0.0-0.1 [facility] Comment on above: Performed By: #### U MICRO, ERUR #### [facility] [address] [place] [address] Dr. Manuel Sandhu Basophils/100 WBC (Bld) 0.4 % Normal 0.2-2.0 [facility] Comment on above: Performed By: #### U MICRO, ERUR #### [facility] [address] [address] [address] Manuel Sandhu EO # 0.2 103/ul Normal 0.0-0.7 [facility] Comment on above: Performed By: #### U MICRO, ERUR #### [facility] [address] [place] [address] Dr. Manuel Sandhu Eosinophils/100 WBC (Bld) 1.8 % Normal 0.9-7.0 [facility] Comment on above: Performed By: #### U MICRO, ERUR #### [facility] [address] [address] [address] Manuel Sandhu Erythrocyte distribution width (RBC) [Ratio] 13.6 % Normal 11.0-15.0 [facility] Comment on above: Performed By: #### U MICRO, ERUR #### [facility] [address] [address] [address] Manuel Sandhu Hematocrit (Bld) [Volume fraction] 35.8 % Critically low 36.0-48.0 [facility] Comment on above: Performed By: #### U MICRO, ERUR #### [facility] [address] [place] [address] Dr. Manuel Sandhu Hemoglobin (Bld) [Mass/Vol] 12.2 g/dL Normal 12.0-16.0 [facility] Comment on above: Performed By: #### U MICRO, ERUR #### [facility] [address] [place] [address] Dr. Manuel Sandhu IG # 0.05 10e3/ul Critically high 0.00-0.03 [facility] Comment on above: Performed By: #### U MICRO, ERUR #### [facility] [address] [place] [address] Dr. Manuel Sandhu IG % 0.4 % Normal 0.0-0.5 [facility] Comment on above: Performed By: #### U MICRO, ERUR #### [facility] [address] [place] [address] Dr. Manuel Sandhu LYMPH # 2.0 103/ul Normal 1.2-3.8 [facility] Comment on above: Performed By: #### U MICRO, ERUR #### [facility] [address] [place] [address] Dr. Manuel Sandhu Lymphocytes/100 WBC (Bld) 18.1 % Critically low 20.5-60.0 [facility] Comment on above: Performed By: #### U MICRO, ERUR #### [facility] [address] [place] [address] Dr. Manuel Sandhu MANUAL DIFF REQ NO Normal [facility] Comment on above: Performed By: #### U MICRO, ERUR #### [facility] [address] [place] [address] Dr. Manuel Sandhu MCH (RBC) [Entitic mass] 32.0 pg Normal 26.7-34.0 [facility] Comment on above: Performed By: #### U MICRO, ERUR #### [facility] [address] [place] [address] Dr. Manuel Sandhu MCHC (RBC) [Mass/Vol] 34.1 g/dL Normal 29.9-35.2 [facility] Comment on above: Performed By: #### U MICRO, ERUR #### [facility] [address] [place] [address] Dr. Manuel Sandhu MCV (RBC) [Entitic vol] 94.0 fL Normal 81.0-99.0 [facility] Comment on above: Performed By: #### U MICRO, ERUR #### [facility] [address] [place] [address] Dr. Manuel Sandhu MONO # 0.7 103/ul Normal 0.3-0.8 [facility] Comment on above: Performed By: #### U MICRO, ERUR #### [facility] [address] [place] [address] Dr. Manuel Sandhu Monocytes/100 WBC (Bld) 5.8 % Normal 1.7-12.0 [facility] Comment on above: Performed By: #### U MICRO, ERUR #### [facility] [address] [place] [address] Dr. Manuel Sandhu NEUT # 8.2 103/ul Critically high 1.4-6.5 [facility] Comment on above: Performed By: #### U MICRO, ERUR #### [facility] [address] [place] [address] Dr. Manuel Sandhu Neutrophils/100 WBC (Bld) 73.5 % Normal 43.0-75.0 [facility] Comment on above: Performed By: #### U MICRO, ERUR #### [facility] [address] [place] [address] Dr. Manuel Sandhu Platelet mean volume (Bld) [Entitic vol] 11.3 fL Normal 9.5-13.5 [facility] Comment on above: Performed By: #### U MICRO, ERUR #### [facility] [address] [address] [address] Manuel Sandhu PLT 284 103/ul Normal 150-450 [facility] Comment on above: Performed By: #### U MICRO, ERUR #### [facility] [address] [address] [address] Manuel aSndhu RBC 3.81 106/ul Critically low 4.20-5.40 [facility] Comment on above: Performed By: #### U MICRO, ERUR #### [facility] [address] [address] [address] Manuel Sandhu WBC 11.2 103/ul Critically high 4.0-11.0 [facility] Comment on above: Performed By: #### U MICRO, ERUR #### [facility] [address] [place] [address] Dr. Manuel Sandhu D-DIMERon 08-16-2022 D-DIMER 0.34 mg/L FEU Normal <=0.59 [facility] Comment on above: Performed By: #### U MICRO, ERUR #### [facility] [address] [place] [address] Dr. Manuel Sandhu D-DIMER COMMENTS SEE BELOW Normal [facility] Comment on above: Result Comment: [...] Performed By: #### U MICRO, ERUR #### [facility] [address] [place] [address] Dr. Manuel Sandhu PROF CHEM 8 (BAS METB)on Anion gap [Moles/Vol] 10.6 mmol/L Normal [facility] Comment on above: Performed By: #### I NFLUAB #### [facility] [address] [address] [address] Manuel Sandhu Calcium [Mass/Vol] 9.2 mg/dL Normal 8.5-10.1 [facility] Comment on above: Performed By: #### I NFLUAB #### [facility] [address] [address] [address] Manuel Sandhu Chloride [Moles/Vol] 103 mmol/L Normal 98-107 [facility] Comment on above: Performed By: #### I NFLUAB #### [facility] [address] [place] [address] Dr. Manuel Sandhu CO2 [Moles/Vol] 28.4 mmol/L Normal 21.0-32.0 [facility] Comment on above: Performed By: #### I NFLUAB #### [facility] [address] [place] [address] Dr. Manuel Sandhu Creatinine [Mass/Vol] 0.61 mg/dL Normal 0.55-1.02 [facility] Comment on above: Performed By: #### I NFLUAB #### [facility] [address] [address] [address] Manuel Sandhu EGFR-AF MARTINIQUAIS >60 Normal >=60 [facility] Comment on above: Performed By: #### I NFLUAB #### [facility] [address] [place] [address] Dr. Manuel Sandhu EGFR-NON AF MARTINIQUAIS >60 Normal >=60 [facility] Comment on above: Performed By: #### I NFLUAB #### [facility] [address] [address] [address] Manuel Sandhu Glucose [Mass/Vol] 90 mg/dL Normal 74-106 [facility] Comment on above: Performed By: #### I NFLUAB #### [facility] [address] [address] [address] Manuel Sandhu Potassium [Moles/Vol] 4.0 mmol/L Normal 3.5-5.1 [facility] Comment on above: Performed By: #### I NFLUAB #### [facility] [address] [address] [address] Manuel Sandhu Sodium [Moles/Vol] 138 mmol/L Normal 136-145 [facility] Comment on above: Performed By: #### I NFLUAB #### [facility] [address] [address] [address] Manuel Sandhu Urea nitrogen [Mass/Vol] 16.0 mg/dL Normal 7.0-18.0 [facility] Comment on above: Performed By: #### I NFLUAB #### [facility] [address] [address] [address] Manuel Sandhu Urea nitrogen/Creatinine [Mass ratio] 26.2 mg/mg Normal [facility] Comment on above: Performed By: #### I NFLUAB #### [facility] [address] [address] [address] Manuel Sandhu XR CHEST 1 Von [...] by: YOLI FRANKS Date: 2022-08-16 14:16 Normal [facility] Albumin [Mass/volume] in Ser um or PlasmaOrdered By: Sangeetha Peña on 08-12-2022 Albumin [Mass/Vol] 3.2 g/dL 3.2-5.5 [facility] Basophils Auto (Bld) [#/Vol] Ordered By: Sangeetha Peña on 08-12-2022 Basophils (Bld) [#/Vol] 0.1 10*3/uL 0.0-0.2 [facility] Basophils/100 WBC Auto (Bld) Ordered By: Sangeetha Peña on 08-12-2022 Basophils/100 WBC (Bld) 0.7 % . [facility] C reactive protein [Mass/vol ume] in Serum or PlasmaOrdered By: Sangeetha Peña on 08-12-2022 CRP [Mass/Vol] 0.5 mg/dL 0.0-1.0 [facility] Creatinine and Glomerular fi ltration rate.predicted panel (S/P/Bld)Ordered By: Sangeetha Peña on 08-12-2022 Creatinine [Mass/Vol] 0.65 mg/dL 0.44-1.03 [facility] Eosinophils Auto (Bld) [#/Vo l]Ordered By: Sangeetha Peña on 08-12-2022 Eosinophils (Bld) [#/Vol] 0.4 10*3/uL 0.0-0.45 [facility] Eosinophils/100 WBC Auto (Bl d)Ordered By: Sangeetha Peña on 08-12-2022 Eosinophils/100 WBC (Bld) 5.2 % . [facility] Erythrocyte distribution wid th Auto (RBC) [Ratio]Ordered By: Sangeetha Peña on 08-12-2022 Erythrocyte distribution width (RBC) [Ratio] 14.4 % 11.9-15.3 [facility] Erythrocyte sedimentation ra te by Photometric methodOrdered By: Dorita Niño on 08-12-2022 ESR Photometric method (Bld) [Velocity] 3 mm/hr 0-19 [facility] Estimated glomerular filtrat ion rate (GFR) non- AmericanOrdered By: Sangeetha Peña on 08-12-2022 GFR/1.73 sq M.predicted among non-blacks MDRD (S/P/Bld) [Vol rate/Area] > 60 mL/Min [facility] Folate [Mass/volume] in Seru m or PlasmaOrdered By: Lizzeth Malave on 08-12-2022 Folate [Mass/Vol] 15.3 ng/mL >5.9 [facility] Comment on above: Folate reference ran ge: >5.9 ng/mlThe WHO technical consultation on folate and vitamin [id number] has determined that folate concentrations lessthan 4 ng/ml are considered deficient. Globulin Calc (S) [Mass/Vol] Ordered By: Sangeetha Peña on 08-12-2022 Globulin (S) [Mass/Vol] 2.4 g/dL [facility] HCG ( test) IA.rapi d Ql (U)Ordered By: Lizzeth Malave on 08-12-2022 HCG ( test) Ql (U) Negative [facility] Hematocrit Auto (Bld) [Volum e fraction]Ordered By: Sangeetha Peña on 08-12-2022 Hematocrit (Bld) [Volume fraction] 34.6 % 34.0-46.4 [facility] Hemoglobin [Mass/volume] in BloodOrdered By: Sangeetha Peña on 08-12-2022 Hemoglobin (Bld) [Mass/Vol] 11.3 g/dL 11.8-15.4 [facility] - Chemistry and C hemistry - challengeOrdered By: Lizzeth Malave on 08-12-2022 Cobalamin (Vitamin B12) [Mass/Vol] 610 pg/mL 180-914 [facility] Magnesium [Mass/Vol] 1.9 mg/dL 1.6-2.6 [facility] - Hematology and Cell countsOrdered By: Sangeetha Peña on 08-12-2022 Nucleated RBC/100 WBC (Bld) [Ratio] 0.1 % 0-0.5 [facility] Leukocytes [#/volume] in Blo od by Automated countOrdered By: Sangeetha Peña on 08-12-2022 WBC (Bld) [#/Vol] 8.3 10*3/uL 4.5-11.0 [facility] Lymphocytes Auto (Bld) [#/Vo l]Ordered By: Sangeetha Peña on 08-12-2022 Lymphocytes (Bld) [#/Vol] 2.3 10*3/uL 1.00-4.8 [facility] Lymphocytes/100 WBC Auto (Bl d)Ordered By: Sangeetha Peña on 08-12-2022 Lymphocytes/100 WBC (Bld) 27.4 % . [facility] MCH Auto (RBC) [Entitic mass ]Ordered By: Sangeetha Peña on 08-12-2022 MCH (RBC) [Entitic mass] 32.0 pg 24.7-34.3 [facility] MCHC Auto (RBC) [Mass/Vol]Or dered By: Sangeetha Peña on 08-12-2022 MCHC (RBC) [Mass/Vol] 32.8 g/dL 32.0-35.0 [facility] MCV Auto (RBC) [Entitic vol] Ordered By: Sangeetha Peña on 08-12-2022 MCV (RBC) [Entitic vol] 97.7 fL 80-100 [facility] Monocytes Auto (Bld) [#/Vol] Ordered By: Sangeetha Peña on 08-12-2022 Monocytes (Bld) [#/Vol] 0.7 10*3/uL 0.0-0.8 [facility] Monocytes/100 WBC Auto (Bld) Ordered By: Sangeetha Peña on 08-12-2022 Monocytes/100 WBC (Bld) 8.7 % . [facility] Neutrophils Auto (Bld) [#/Vo l]Ordered By: Sangeetha Peña on 08-12-2022 Neutrophils (Bld) [#/Vol] 4.8 10*3/uL 1.8-7.7 [facility] Neutrophils/100 WBC Auto (Bl d)Ordered By: Sangeetha Peña on 08-12-2022 Neutrophils/100 WBC (Bld) 58.0 % . [facility] No Panel InformationOrdered By: Sangeetha Peña on 08-12-2022 Estimated GFR () > 60 mL/Min [facility] Comment on above: GFR estimated refere nce range: According to KDOQI guidelines, <60 ml/min/1.73m2 is sufficient to diagnose a patient with chronic kidney disease. Pharmacy Creatinine Clearance (Chem 140.31 [facility] Platelet mean volume Auto (B ld) [Entitic vol]Ordered By: Sangeetha Peña on 08-12-2022 Platelet mean volume (Bld) [Entitic vol] 10.2 fL 6.3-10.7 [facility] Platelets Auto (Bld) [#/Vol] Ordered By: Sangeetha Peña on 08-12-2022 Platelets (Bld) [#/Vol] 263 10*3/uL 150-450 [facility] Protein [Mass/volume] in Ser um or PlasmaOrdered By: Sangeetha Peña on 08-12-2022 Protein [Mass/Vol] 5.6 g/dL 6.1-7.9 [facility] RBC Auto (Bld) [#/Vol]Ordere d By: Sangeetha Peña on 08-12-2022 RBC (Bld) [#/Vol] 3.54 10*6/uL 3.60-5.00 [facility] Serum or plasma alanine alberto otransferase measurement without P-5'-P (enzymatic activiOrdered By: Sangeetha Peña on 08-12-2022 ALT No additional P-5'-P [Catalytic activity/Vol] 22 U/L 10-60 [facility] Serum or plasma albumin/glob ulin mass ratioOrdered By: Sangeetha Peña on 08-12-2022 Albumin/Globulin [Mass ratio] 1.3 {ratio} [facility] Serum or plasma alkaline marquez sphatase measurement (enzymatic activity/volume)Ordered By: Sangeetha Peña on 08-12-2022 ALP [Catalytic activity/Vol] 54 U/L 32-92 [facility] Serum or plasma anion gap de terminationOrdered By: Sangeetha Peña on 08-12-2022 Anion gap [Moles/Vol] 10.6 mmol/L 6.0-15.0 [facility] Serum or plasma aspartate am inotransferase measurement (enzymatic activity/volume)Ordered By: Sangeetha Peña on 08-12-2022 AST [Catalytic activity/Vol] 20 U/L 10-42 [facility] Serum or plasma calcium audie urement (mass/volume)Ordered By: Sangeetha Peña on 08-12-2022 Calcium [Mass/Vol] 8.8 mg/dL 8.2-10.2 [facility] Serum or plasma chloride nimisha surement (moles/volume)Ordered By: Sangeetha Peña on 08-12-2022 Chloride [Moles/Vol] 105 mmol/L 95-114 [facility] Serum or plasma glucose audie urement (mass/volume)Ordered By: Sangeetha Peña on 08-12-2022 Glucose [Mass/Vol] 85 mg/dL 70-100 [facility] Comment on above: ADA recommended refe rence rangeRandom Glucose Reference Range is dependent on time and content of last meal. Glucose of more than 200 mg/dL in a nonstressed, ambulatory subject supports the diagnosis of Diabetes Mellitus. Serum or plasma potassium me asurement (moles/volume)Ordered By: Sangeetha Peña on 08-12-2022 Potassium [Moles/Vol] 4.2 mmol/L 3.5-5.1 [facility] Serum or plasma sodium measu rement (moles/volume)Ordered By: Sangeetha Peña on 08-12-2022 Sodium [Moles/Vol] 140 mmol/L 136-146 [facility] Serum or plasma total biliru bin measurement (mass/volume)Ordered By: Sangeetha Peña on 08-12-2022 Bilirubin [Mass/Vol] 0.5 mg/dL 0.3-1.2 [facility] Serum or plasma total carbon dioxide measurement (moles/volume)Ordered By: Sangeetha Peña on 08-12-2022 CO2 [Moles/Vol] 28.6 mmol/L 22.0-30.0 [facility] Serum or plasma urea nitroge n measurement (mass/volume)Ordered By: Sangeetha Peña on 08-12-2022 Urea nitrogen [Mass/Vol] 7 mg/dL 9-23 [facility] TSH DL <= 0.005 mIU/L QnOrde red By: Lizzeth Malave on 08-12-2022 TSH Qn 1.79 m[IU]/L 0.45-5.33 [facility] Troponin I.cardiac [Mass/vol ume] in Serum or Plasma by High sensitivity methodOrdered By: Lizzeth Malave on 08-12-2022 Troponin I.cardiac High sensitivity method [Mass/Vol] < 3 pg/mL 0-15 [facility] CBC AUTO DIFFon 08-11-2022 BASO # 0.1 103/ul Normal 0.0-0.1 [facility] Comment on above: Performed By: #### C JENNIE PATRICK LIPA #### [facility] [address] [address] [address] Manuel Sandhu Basophils/100 WBC (Bld) 0.5 % Normal 0.2-2.0 [facility] Comment on above: Performed By: #### C JENNIE PATRICK LIPA #### [facility] [address] [place] [address] Dr. Manuel Sandhu EO # 0.4 103/ul Normal 0.0-0.7 [facility] Comment on above: Performed By: #### C JENNIE PATRICK LIPA #### [facility] [address] [place] [address] Dr. Manuel Sandhu Eosinophils/100 WBC (Bld) 2.4 % Normal 0.9-7.0 [facility] Comment on above: Performed By: #### C JENNIE PATRICK LIPA #### [facility] [address] [place] [address] Dr. Manuel Sandhu Erythrocyte distribution width (RBC) [Ratio] 14.1 % Normal 11.0-15.0 [facility] Comment on above: Performed By: #### C JENNIE PATRICK LIPA #### [facility] [address] [place] [address] Dr. Manuel Sandhu Hematocrit (Bld) [Volume fraction] 39.4 % Normal 36.0-48.0 [facility] Comment on above: Performed By: #### C JENNIE PATRICK LIPA #### [facility] [address] [place] [address] Dr. Manuel Sandhu Hemoglobin (Bld) [Mass/Vol] 13.3 g/dL Normal 12.0-16.0 [facility] Comment on above: Performed By: #### C JENNIE PATRICK LIPA #### [facility] [address] [place] [address] Dr. Manuel Sandhu IG # 0.07 10e3/ul Critically high 0.00-0.03 [facility] Comment on above: Performed By: #### C JENNIE PATRICK LIPA #### [facility] [address] [place] [address] Dr. Manuel Sandhu IG % 0.5 % Normal 0.0-0.5 [facility] Comment on above: Performed By: #### C JENNIE PATRICK LIPA #### [facility] [address] [place] [address] Dr. Manuel Sandhu LYMPH # 3.6 103/ul Normal 1.2-3.8 [facility] Comment on above: Performed By: #### C JENNIE PATRICK LIPA #### [facility] [address] [place] [address] Dr. Manuel Sandhu Lymphocytes/100 WBC (Bld) 23.5 % Normal 20.5-60.0 [facility] Comment on above: Performed By: #### C JENNIE PATRICK LIPA #### [facility] [address] [place] [address] Dr. Manuel Sandhu MANUAL DIFF REQ NO Normal [facility] Comment on above: Performed By: #### C JENNIE PATRICK LIPA #### [facility] [address] [place] [address] Dr. Manuel Sandhu MCH (RBC) [Entitic mass] 32.1 pg Normal 26.7-34.0 [facility] Comment on above: Performed By: #### C JENNIE PATRICK LIPA #### [facility] Laboratory [address] [place] [address] Dr. Manuel Sandhu MCHC (RBC) [Mass/Vol] 33.8 g/dL Normal 29.9-35.2 [facility] Comment on above: Performed By: #### C JENNIE PATRICK, LIPA #### [facility] Laboratory [address] [place] [address] Dr. Manuel Sandhu MCV (RBC) [Entitic vol] 95.2 fL Normal 81.0-99.0 [facility] Comment on above: Performed By: #### C JENNIE PATRICK, LIPA #### [facility] Laboratory [address] [place] [address] Dr. Manuel Sandhu MONO # 0.9 103/ul Critically high 0.3-0.8 The [facility] Comment on above: Performed By: #### C JENNIE PATRICK, LIPA #### [facility] Laboratory [address] [place] [address] Dr. Manuel Sandhu Monocytes/100 WBC (Bld) 5.8 % Normal 1.7-12.0 [facility] Comment on above: Performed By: #### C JENNIE PATRICK, LIPA #### [facility] Laboratory [address] [address] [address] Manuel Sandhu NEUT # 10.3 103/ul Critically high 1.4-6.5 [facility] Comment on above: Performed By: #### C JENNIE PATRICK, LIPA #### [facility] Laboratory [address] [place] [address] Dr. Manuel Sandhu Neutrophils/100 WBC (Bld) 67.3 % Normal 43.0-75.0 [facility] Comment on above: Performed By: #### C JENNIE PATRICK, LIPA #### [facility] Laboratory [address] [place] [address] Dr. Manuel Sandhu Platelet mean volume (Bld) [Entitic vol] 11.4 fL Normal 9.5-13.5 [facility] Comment on above: Performed By: #### C JENNIE PATRICK LIPA #### [facility] Laboratory [address] [place] [address] Dr. Manuel Sandhu PLT 364 103/ul Normal 150-450 [facility] Comment on above: Performed By: #### C JENNIE PATRICK, LIPA #### [facility] Laboratory [address] [place] [address] Dr. Manuel Sandhu RBC 4.14 106/ul Critically low 4.20-5.40 [facility] Comment on above: Performed By: #### C JENNIE PATRICK, LIPA #### [facility] Laboratory [address] [place] [address] Dr. Manuel Sandhu WBC 15.3 103/ul Critically high 4.0-11.0 The [facility] Comment on above: Performed By: #### C JENNIE PATRICK, LIPA #### [facility] Laboratory [address] [place] [address] STROKE HEAD WOon [...] YOLI MCKEON Date: 2022-08-11 15:21 Normal [facility] ER URINE PROFILEon 2 Bilirubin Ql (U) Negative Normal NEGATIVE [facility] Comment on above: Performed By: #### U MICRO, ERUR #### [facility] Laboratory [address] [place] [address] Dr. Manuel Sandhu Clarity (U) CLEAR Normal CLEAR [facility] Comment on above: Performed By: #### U MICRO, ERUR #### [facility] Laboratory [address] [place] [address] Dr. Manuel Sandhu Color (U) LT. YELLOW Normal YELLOW [facility] Comment on above: Performed By: #### U MICRO, ERUR #### [facility] Laboratory [address] [place] [address] Dr. Manuel Sandhu ERUAHD A micrscopic examination will be performed if indicated. Normal [facility] Comment on above: Performed By: #### U MICRO, ERUR #### [facility] Laboratory [address] [place] [address] Dr. Manuel Sandhu Glucose Ql (U) Negative Normal NEGATIVE The [facility] Comment on above: Performed By: #### U MICRO, ERUR #### [facility] Laboratory [address] [place] [address] Dr. Manuel Sandhu Hemoglobin Ql (U) Negative Normal NEGATIVE The [facility] Comment on above: Performed By: #### U MICRO, ERUR #### [facility] Laboratory [address] [address] [address] Manuel Sandhu Ketones Ql (U) Negative Normal NEGATIVE [facility] Comment on above: Performed By: #### U MICRO, ERUR #### [facility] Laboratory [address] [address] [address] Manuel Sandhu LEUKOCYTES Negative Normal NEGATIVE [facility] Comment on above: Performed By: #### U MICRO, ERUR #### [facility] Laboratory [address] [address] [address] Manuel Sandhu Nitrite Ql (U) Negative Normal NEGATIVE [facility] Comment on above: Performed By: #### U MICRO, ERUR #### [facility] Laboratory [address] [place] [address] Dr. Manuel Sandhu pH (U) 7.0 [pH] Normal 5-9 [facility] Comment on above: Performed By: #### U MICRO, ERUR #### [facility] Laboratory [address] [place] [address] Dr. Manuel Sandhu SPEC GRAVITY <=1.005 Abnormal 1.005-<=1.02 5 [facility] Comment on above: Performed By: #### U MICRO, ERUR #### [facility] Laboratory [address] [place] [address] Dr. Manuel Sandhu UA PROTEIN Negative Normal NEGATIVE/ TRACE [facility] Comment on above: Performed By: #### U MICRO, ERUR #### [facility] Laboratory [address] [address] [address] Manuel Sandhu UR MICRO IND NOT INDICATED Normal [facility] Comment on above: Performed By: #### U MICRO, ERUR #### [facility] Laboratory [address] [place] [address] Dr. Manuel Sandhu Urobilinogen Qn (U) 0.2 {Lucila'U}/dL Normal 0.2 - 1. 0 [facility] Comment on above: Performed By: #### U MICRO, ERUR #### [facility] Laboratory [address] [place] [address] Dr. Manuel Sandhu LACTATE/LACTIC ACIDon 2021 Lactate [Moles/Vol] 1.5 mmol/L Normal 0.4-1.9 [facility] Comment on above: Performed By: #### I NFLUAB #### [facility] Laboratory [address] [place] [address] Dr. Manuel Sandhu LIPASEon 08-11-2022 Lipase [Catalytic activity/Vol] 84.0 U/L Normal 73.0-393.0 [facility] Comment on above: Performed By: #### C MP, JENNIE, LIPA #### [facility] Laboratory [address] [place] [address] Dr. Manuel Sandhu URon 08-11-2022 , QUAL Negative Normal NEGATIVE [facility] Comment on above: Performed By: #### U MICRO, ERUR #### [facility] Laboratory [address] [place] [address] Dr. Manuel Sandhu PROF 14(COMP METB)on 022 Albumin [Mass/Vol] 4.3 g/dL Normal 3.4-5.0 [facility] Comment on above: Performed By: #### C MP, JENNIE, LIPA #### [facility] Laboratory [address] [place] [address] Dr. Manuel Sandhu Albumin/Globulin [Mass ratio] 1.1 {ratio} Normal [facility] Comment on above: Performed By: #### C MP, JENNIE, LIPA #### [facility] Laboratory [address] [place] [address] Dr. Manuel Sandhu ALP [Catalytic activity/Vol] 87 U/L Normal 46-116 [facility] Comment on above: Performed By: #### C MP, JENNIE, LIPA #### [facility] Laboratory [address] [place] [address] Dr. Manuel Sandhu ALT [Catalytic activity/Vol] 32 U/L Normal 14-59 [facility] Comment on above: Performed By: #### C MP, JENNIE, LIPA #### [facility] Laboratory [address] [place] [address] Dr. Manuel Sandhu Anion gap [Moles/Vol] 12.7 mmol/L Normal Th e [facility] Comment on above: Performed By: #### C JENNIE PATRICK LIPA #### [facility] Laboratory [address] [address] [address] Manuel Sandhu AST [Catalytic activity/Vol] 24 U/L Normal 15-37 [facility] Comment on above: Performed By: #### C JENNIE PATRICK LIPA #### [facility] Laboratory [address] [address] [address] Manuel Sandhu Bilirubin [Mass/Vol] 0.3 mg/dL Normal 0.2-1.0 [facility] Comment on above: Performed By: #### C JENNIE PATRICK LIPA #### [facility] Laboratory [address] [place] [address] Dr. Manuel Sandhu Calcium [Mass/Vol] 9.4 mg/dL Normal 8.5-10.1 [facility] Comment on above: Performed By: #### C JENNIE PATRICK LIPA #### [facility] Laboratory [address] [place] [address] Dr. Manuel Sandhu Chloride [Moles/Vol] 100 mmol/L Normal 98-107 [facility] Comment on above: Performed By: #### C JENNIE PATRICK LIPA #### [facility] Laboratory [address] [place] [address] Dr. Manuel Sandhu CO2 [Moles/Vol] 27.7 mmol/L Normal 21.0-32.0 [facility] Comment on above: Performed By: #### C JENNIE PATRICK LIPA #### [facility] Laboratory [address] [place] [address] Dr. Manuel Sandhu Creatinine [Mass/Vol] 0.71 mg/dL Normal 0.55-1.02 [facility] Comment on above: Performed By: #### C JENNIE PATRICK LIPA #### [facility] Laboratory [address] [address] [address] Manuel Sandhu EGFR-AF MARTINIQUAIS >60 Normal >=60 [facility] Comment on above: Performed By: #### C MP, JENNIE, LIPA #### [facility] [address] [address] [address] Manuel Sandhu EGFR-NON AF MARTINIQUAIS >60 Normal >=60 [facility] Comment on above: Performed By: #### C JENNIE PATRICK, LIPA #### [facility] [address] [address] [address] Manuel Sandhu Globulin (S) [Mass/Vol] 3.9 g/dL Normal [facility] Comment on above: Performed By: #### C CELINA JENNIE, LIPA #### [facility] [address] [address] [address] Manuel Sandhu Glucose [Mass/Vol] 109 mg/dL Critically high 74-106 [facility] Comment on above: Performed By: #### C JENNIE PATRICK, LIPA #### [facility] [address] [address] [address] Manuel Sandhu Potassium [Moles/Vol] 3.4 mmol/L Critically low 3.5-5.1 [facility] Comment on above: Performed By: #### C CELINA JENNIE, LIPA #### [facility] [address] [address] [address] Manuel Sandhu Protein [Mass/Vol] 8.2 g/dL Normal 6.4-8.2 [facility] Comment on above: Performed By: #### C CELINA JENNIE, LIPA #### [facility] [address] [address] [address] Manuel Sanhdu Sodium [Moles/Vol] 137 mmol/L Normal 136-145 [facility] Comment on above: Performed By: #### C CELINA JENNIE, LIPA #### [facility] [address] [address] [address] Manuel Sandhu Urea nitrogen [Mass/Vol] 10.0 mg/dL Normal 7.0-18.0 [facility] Comment on above: Performed By: #### C CELINA JENNIE, LIPA #### [facility] [address] [address] [address] Manuel Sandhu Urea nitrogen/Creatinine [Mass ratio] 14.1 mg/mg Normal [facility] Comment on above: Performed By: #### C JENNIE PATRICK, LIPA #### [facility] [address] [place] [address] Dr. Manuel Sandhu PROTIMEon 08-11-2022 INR Coag (PPP) [Relative time] 0.96 {INR} Normal [facility] Comment on above: Performed By: #### I NFLUAB #### [facility] Laboratory [address] [place] [address] Dr. Manuel Sandhu INR GUIDELINES SEE BELOW Normal [facility] Comment on above: Result Comment: CHUY RED INR: 2.0 - 3.0 CONDITIONS NOT LISTED BELOW 2.5 - 3.5 FOR PROSTHETIC HEART VALVE REPLACEMENT 2.5 - 3.5 RECURRENT THROMBOSIS Performed By: #### I NFLUAB #### [facility] Laboratory [address] [place] [address] Dr. Manuel Sandhu PT Coag (PPP) [Time] 10.4 s Normal 9.0-11.6 [facility] Comment on above: Performed By: #### I NFLUAB #### [facility] Laboratory [address] [place] [address] Dr. aMnuel Sandhu PTTon 08-11-2022 aPTT Coag (Bld) [Time] 25.3 s Normal 22.3-36.2 Th [facility] Comment on above: Performed By: #### I NFLUAB #### [facility] Laboratory [address] [place] [address] Dr. Manuel Sandhu TROPONIN, HIGH SENSITIVITYon 08-11-2022 HSTROP 4.5 pg/mL Normal 4.0-51.3 [facility] Comment on above: Result Comment: CUT- OFF POINTS HAVE BEEN ESTABLISHED BASED ON THE FOURTH UNIVERSAL DEFINITIONS OF MYOCARDIAL INFARCTION. THE UPPER REFERENCE LIMIT (URL) OF TROPONIN, DEFINED THE 99TH PERCENTILE OF cTnI DISTRIBUTION IN A REFERENCE POPULATION, HAS BEEN CONFIRMED THE DECISION THRESHOLD FOR TX DIAGNOSIS. Performed By: #### C MP, JENNIE, LIPA #### [facility] Laboratory [address] [place] [address] Dr. Manuel Sandhu TSHon 08-11-2022 TSH 1.778 uIU/mL Normal 0.358-3.740 [facility] Comment on above: Performed By: #### C JENNIE PATRICK LIPA #### [facility] Laboratory [address] [address] [address] Manuel Sandhu CHEMISTRYOrdered By: SYSTEM SYSTEM on 08-08-2022 Anion gap [Moles/Vol] 11 mmol/L Normal 6 - 16 mEq/L F [facility] Remisol Calcium [Mass/Vol] 9.0 mg/dL Normal 8.9 - 11. 1 mg/dL [facility] Chloride [Moles/Vol] 105 mmol/L Normal 101 - 1 11 mmol/L [facility] CO2 [Moles/Vol] 25 mmol/L Normal 21 - 31 mmol/L [facility] Creatinine [Mass/Vol] 0.6 mg/dL Normal 0.5 - 1.3 mg/dL [facility] Remisol GFR/1.73 sq M.predicted among blacks MDRD (S/P/Bld) [Vol rate/Area] mL/min/1.73 m2 Normal >=59mL/min/1 .73 m2 [facility] Chem S GFR/1.73 sq M.predicted among non-blacks MDRD (S/P/Bld) [Vol rate/Area] mL/min/1.73 m2 Normal >=59mL/min/1 .73 m2 [facility] Chem S Glucose [Mass/Vol] 84 mg/dL Normal 55 - 199 mg/dL [facility] Remisol Potassium [Moles/Vol] 4.2 mmol/L Normal 3.5 - 5.3 mmol/L [facility] Sodium [Moles/Vol] 137 mmol/L Normal 135 - 145 mmol/L [facility] Remisol Urea nitrogen [Mass/Vol] 13 mg/dL Normal 5 - 21 mg/dL [facility] Remisol Urea nitrogen/Creatinine [Mass ratio] 22 mg/mg High 10 - 20 [facility] Remisol CHEMISTRYOrdered By: Lab ROP User on 08-08-2022 Glucose [Mass/Vol] 98 mg/dL Normal 55 - 99 mg/dL [facility] POC Subsection POC Device SN [id number] Invalid Interpretation Code [facility] POC Subsection POC User ID [id number] Invalid Interpretation Code [facility] POC Subsection POC Username ZIEBER, MOLLY Invalid Interpretation Code [facility] POC Subsection HEMATOLOGYOrdered By: SYSTEM SYSTEM on [...] Detected (08/08/22 9:59 AM) Normal Not Detected [facility] Man Sero SEROLOGYOrdered By: Kimberli heart on [...] AM) Normal Negative [facility] UA Auto SS Sharpes.plasma/Sharpes .RBC (Bld) [Mass ratio] 0-3 /HPF Normal [...] Clean Catch (08/08/22 10:01 AM) Normal [facility] UA Auto SS Urobilinogen Qn (U) [id number] {Lucila'U}/dL Normal 0.0 - 1.0 EU/dL [facility] UA Auto SS WBC Auto Ql (U) Negative (08/08/22 10:01 AM) Normal Negative [facility] UA Auto SS WBC LM.HPF (Urine sed) [#/Area] 0-5 /HPF Normal 0-5/HPF [facility] UA Auto SS CBC AUTO DIFFon 07-19-2022 BASO # 0.1 103/ul Normal 0.0-0.1 [facility] Comment on above: Performed By: #### I NFLUAB #### [facility] Laboratory [address] [place] [address] Dr. Manuel Sandhu Basophils/100 WBC (Bld) 0.4 % Normal 0.2-2.0 [facility] Comment on above: Performed By: #### I NFLUAB #### [facility] Laboratory [address] [place] [address] Dr. Manuel Sandhu EO # 0.3 103/ul Normal 0.0-0.7 [facility] Comment on above: Performed By: #### I NFLUAB #### [facility] Laboratory [address] [place] [address] Dr. Manuel Sandhu Eosinophils/100 WBC (Bld) 2.4 % Normal 0.9-7.0 [facility] Comment on above: Performed By: #### I NFLUAB #### [facility] [address] [place] [address] Dr. Manuel Sandhu Erythrocyte distribution width (RBC) [Ratio] 13.7 % Normal 11.0-15.0 [facility] Comment on above: Performed By: #### I NFLUAB #### [facility] Laboratory [address] [place] [address] Dr. Manuel Sandhu Hematocrit (Bld) [Volume fraction] 36.5 % Normal 36.0-48.0 [facility] Comment on above: Performed By: #### I NFLUAB #### [facility] [address] [place] [address] Dr. Manuel Sandhu Hemoglobin (Bld) [Mass/Vol] 12.3 g/dL Normal 12.0-16.0 [facility] Comment on above: Performed By: #### I NFLUAB #### [facility] [address] [place] [address] Dr. Manuel Sandhu IG # 0.04 10e3/ul Critically high 0.00-0.03 [facility] Comment on above: Performed By: #### I NFLUAB #### [facility] [address] [place] [address] Dr. Manuel Sandhu IG % 0.3 % Normal 0.0-0.5 [facility] Comment on above: Performed By: #### I NFLUAB #### [facility] [address] [place] [address] Dr. Manuel Sandhu LYMPH # 2.6 103/ul Normal 1.2-3.8 [facility] Comment on above: Performed By: #### I NFLUAB #### [facility] [address] [place] [address] Dr. Manuel Sandhu Lymphocytes/100 WBC (Bld) 22.3 % Normal 20.5-60.0 [facility] Comment on above: Performed By: #### I NFLUAB #### [facility] [address] [place] [address] Dr. Manuel Sandhu MANUAL DIFF REQ NO Normal [facility] Comment on above: Performed By: #### I NFLUAB #### [facility] [address] [place] [address] Dr. Manuel Sandhu MCH (RBC) [Entitic mass] 32.5 pg Normal 26.7-34.0 [facility] Comment on above: Performed By: #### I NFLUAB #### [facility] [address] [place] [address] Dr. Manuel Sandhu MCHC (RBC) [Mass/Vol] 33.7 g/dL Normal 29.9-35.2 [facility] Comment on above: Performed By: #### I NFLUAB #### [facility] [address] [place] [address] Dr. Manuel Sandhu MCV (RBC) [Entitic vol] 96.6 fL Normal 81.0-99.0 [facility] Comment on above: Performed By: #### I NFLUAB #### [facility] [address] [place] [address] Dr. Manuel Sandhu MONO # 0.6 103/ul Normal 0.3-0.8 [facility] Comment on above: Performed By: #### I NFLUAB #### [facility] [address] [place] [address] Dr. Manuel Sandhu Monocytes/100 WBC (Bld) 5.2 % Normal 1.7-12.0 [facility] Comment on above: Performed By: #### I NFLUAB #### [facility] Laboratory [address] [place] [address] Dr. Manuel Sandhu NEUT # 8.2 103/ul Critically high 1.4-6.5 [facility] Comment on above: Performed By: #### I NFLUAB #### [facility] [address] [place] [address] Dr. Manuel Sandhu Neutrophils/100 WBC (Bld) 69.4 % Normal 43.0-75.0 [facility] Comment on above: Performed By: #### I NFLUAB #### [facility] [address] [address] [address] Manuel Sandhu Platelet mean volume (Bld) [Entitic vol] 11.2 fL Normal 9.5-13.5 [facility] Comment on above: Performed By: #### I NFLUAB #### [facility] [address] [place] [address] Dr. Manuel Sandhu PLT 308 103/ul Normal 150-450 [facility] Comment on above: Performed By: #### I NFLUAB #### [facility] [address] [address] [address] Manuel Sandhu RBC 3.78 106/ul Critically low 4.20-5.40 [facility] Comment on above: Performed By: #### I NFLUAB #### [facility] [address] [place] [address] Dr. Manuel Snadhu WBC 11.8 103/ul Critically high 4.0-11.0 [facility] Comment on above: Performed By: #### I NFLUAB #### [facility] [address] [place] [address] Dr. Manuel Sandhu D-DIMERon 07-19-2022 D-DIMER 0.29 mg/L FEU Normal <=0.59 [facility] Comment on above: Performed By: #### U MICRO, ERUR #### [facility] [address] [place] [address] Dr. Manuel Sandhu D-DIMER COMMENTS SEE BELOW Normal [facility] Comment on above: Result Comment: [...] Performed By: #### U MICRO, ERUR #### [facility] [address] [place], [place] [id number] Dr. Manuel Sandhu LIPASEon 07-19-2022 Lipase [Catalytic activity/Vol] 119.0 U/L Normal 73.0-393.0 [facility] Comment on above: Performed By: #### C MP, JENNIE, LIPA #### [facility] [address] [place] [address] Dr. Manuel Sandhu PROF 14(COMP METB)on 022 Albumin [Mass/Vol] 3.5 g/dL Normal 3.4-5.0 [facility] Comment on above: Performed By: #### C MP, JENNIE, LIPA #### [facility] [address] [place] [address] Dr. Manuel Sandhu Albumin/Globulin [Mass ratio] 1.0 {ratio} Normal [facility] Comment on above: Performed By: #### C MP, JENNIE, LIPA #### [facility] [address] [place] [address] Dr. Manuel Sadnhu ALP [Catalytic activity/Vol] 65 U/L Normal 46-116 [facility] Comment on above: Performed By: #### C MP, JENNIE, LIPA #### [facility] [address] [place] [address] Dr. Manuel Sandhu ALT [Catalytic activity/Vol] 33 U/L Normal 14-59 [facility] Comment on above: Performed By: #### C MP, JENNIE, LIPA #### [facility] [address] [place] [address] Dr. Manuel Sandhu Anion gap [Moles/Vol] 10.8 mmol/L Normal [facility] Comment on above: Performed By: #### C MP, JENNIE, LIPA #### [facility] [address] [place] [address] Dr. Manuel Sandhu AST [Catalytic activity/Vol] 20 U/L Normal 15-37 [facility] Comment on above: Performed By: #### C MP, JENNIE, LIPA #### [facility] [address] [place] [address] Dr. Manuel Sandhu Bilirubin [Mass/Vol] 0.1 mg/dL Critically low 0.2-1.0 [facility] Comment on above: Performed By: #### C CELINA JENNIE, LIPA #### [facility] [address] [place] [address] Dr. Manuel Sandhu Calcium [Mass/Vol] 8.7 mg/dL Normal 8.5-10.1 [facility] Comment on above: Performed By: #### C MP JENNIE, LIPA #### [facility] [address] [place] [address] Dr. Manuel Sandhu Chloride [Moles/Vol] 105 mmol/L Normal 98-107 [facility] Comment on above: Performed By: #### C CELINA JENNIE, LIPA #### [facility] [address] [place] [address] Dr. Manuel Sandhu CO2 [Moles/Vol] 24.4 mmol/L Normal 21.0-32.0 [facility] Comment on above: Performed By: #### C CELINA JENNIE, LIPA #### [facility] [address] [place] [address] Dr. Manuel Sandhu Creatinine [Mass/Vol] 0.91 mg/dL Normal 0.55-1.02 [facility] Comment on above: Performed By: #### C CELINA JENNIE, LIPA #### [facility] [address] [place] [address] Dr. Manuel Sandhu EGFR-AF MARTINIQUAIS >60 Normal >=60 [facility] Comment on above: Performed By: #### C CELINA JENNIE, LIPA #### [facility] [address] [place] [address] Dr. Manuel Sandhu EGFR-NON AF MARTINIQUAIS >60 Normal >=60 [facility] Comment on above: Performed By: #### C CELINA JENNIE, LIPA #### [facility] [address] [place] [address] Dr. Manuel Sandhu Globulin (S) [Mass/Vol] 3.4 g/dL Normal [facility] Comment on above: Performed By: #### C CELINA JENNIE, LIPA #### [facility] [address] [place] [address] Dr. Manuel Sandhu Glucose [Mass/Vol] 127 mg/dL Critically high 74-[address] [facility] Comment on above: Performed By: #### C JENNIE PATRICK LIPA #### [facility] [address] [address] [address] Manuel Sandhu Potassium [Moles/Vol] 3.2 mmol/L Critically low 3.5-5.1 [facility] Comment on above: Performed By: #### C JENNIE PATRICK LIPA #### [facility] [address] [place] [address] Dr. Manuel Sandhu Protein [Mass/Vol] 6.9 g/dL Normal 6.4-8.2 [facility] Comment on above: Performed By: #### C JENNIE PATRICK LIPA #### [facility] [address] [place] [address] Dr. Manuel Sandhu Sodium [Moles/Vol] 137 mmol/L Normal 136-145 [facility] Comment on above: Performed By: #### C JENNIE PATRICK LIPA #### [facility] [address] [place] [address] Dr. Manuel Sandhu Urea nitrogen [Mass/Vol] 13.0 mg/dL Normal 7.0-18.0 [facility] Comment on above: Performed By: #### C JENNIE PATRICK LIPA #### [facility] [address] [place] [address] Dr. Manuel Sandhu Urea nitrogen/Creatinine [Mass ratio] 14.3 mg/mg Normal [facility] Comment on above: Performed By: #### C JENNIE PATRICK, LIPA #### [facility] [address] [place] [address] Dr. Manuel Sandhu PROTIMEon 07-19-2022 INR Coag (PPP) [Relative time] 0.97 {INR} Normal [facility] Comment on above: Performed By: #### P TT, PT #### [facility] [address] [place] [address] Dr. Manuel Sandhu INR GUIDELINES SEE BELOW Normal [facility] Comment on above: Result Comment: CHUY RED INR: 2.0 - 3.0 CONDITIONS NOT LISTED BELOW 2.5 - 3.5 FOR PROSTHETIC HEART VALVE REPLACEMENT 2.5 - 3.5 RECURRENT THROMBOSIS Performed By: #### P TT, PT #### [facility] [address] [place] [address] Dr. Manuel Sandhu PT Coag (PPP) [Time] 10.5 s Normal 9.0-11.6 [facility] Comment on above: Performed By: #### P TT, PT #### [facility] [address] [place] [address] Dr. Manuel Sandhu PTTon 07-19-2022 aPTT Coag (Bld) [Time] 26.1 s Normal 22.3-36.2 Th e [facility] Comment on above: Performed By: #### P TT, PT #### [facility] [address] [place] [address] Dr. Manuel Sandhu TROPONIN, HIGH SENSITIVITYon 07-19-2022 HSTROP 5.4 pg/mL Normal 4.0-51.3 [facility] Comment on above: Result Comment: CUT- OFF POINTS HAVE BEEN ESTABLISHED BASED ON THE FOURTH UNIVERSAL DEFINITIONS OF MYOCARDIAL INFARCTION. THE UPPER REFERENCE LIMIT (URL) OF TROPONIN, DEFINED THE 99TH PERCENTILE OF cTnI DISTRIBUTION IN A REFERENCE POPULATION, HAS BEEN CONFIRMED THE DECISION THRESHOLD FOR TX DIAGNOSIS. Performed By: #### U MICRO, ERUR #### [facility] [address] [place] [address] Dr. Manuel Sandhu HSTROP 5.1 pg/mL Normal 4.0-51.3 [facility] Comment on above: Result Comment: CUT- OFF POINTS HAVE BEEN ESTABLISHED BASED ON THE FOURTH UNIVERSAL DEFINITIONS OF MYOCARDIAL INFARCTION. THE UPPER REFERENCE LIMIT (URL) OF TROPONIN, DEFINED THE 99TH PERCENTILE OF cTnI DISTRIBUTION IN A REFERENCE POPULATION, HAS BEEN CONFIRMED THE DECISION THRESHOLD FOR TX DIAGNOSIS. Performed By: #### C JENNIE PATRICK LIPA #### [facility] [address] [place] [address] Dr. Manuel Sandhu XR CHEST 1 Von [...] LUCIANA ALLEN Date: 2022-07-19 19:28 Normal [facility] Covid-19 PCR (CVDTB)on 05-16 SARS-CoV-2 (COVID-19) RNA JOSÉ MIGUEL+probe Ql (Unsp spec) Not detected Normal NOT DETECTED [facility] Comment on above: Result Comment: [...] for this test is supported by the Marketing Information Analyst of Health and Human Service's declaration that [...] By: #### C JENNIE PATRICK LIPA #### [facility] [address] [place] [address] Dr. Manuel Sandhu XR CHEST 2 Von [...] CAROLYNE RALPH Date: 2022-06-12 10:12 Normal [facility] Covid-19 PCR (CVDTB)on 05-15 SARS-CoV-2 (COVID-19) RNA JOSÉ MIGUEL+probe Ql (Unsp spec) Not detected Normal NOT DETECTED [facility] Comment on above: Result Comment: [...] for this test is supported by the Marketing Information Analyst of Health and Human Service's declaration that [...] used). Performed By: #### I NFLUAB #### [facility] [address] [place] [address] Dr. Manuel Sandhu CHEMISTRYOrdered By: SYSTEM SYSTEM on 04-20-2022 Anion gap [Moles/Vol] 12 mmol/L Normal 6 - 16 mEq/L [facility] Calcium [Mass/Vol] 9.5 mg/dL Normal 8.9 - 11. 1 mg/dL [facility] Chloride [Moles/Vol] 107 mmol/L Normal 101 - 1 11 mmol/L [facility] CO2 [Moles/Vol] 22 mmol/L Normal 21 - 31 mmol/L [facility] Creatinine [Mass/Vol] 0.6 mg/dL Normal 0.5 - 1.3 mg/dL [facility] Remisol GFR/1.73 sq M.predicted among blacks MDRD (S/P/Bld) [Vol rate/Area] mL/min/1.73 m2 Normal >=59mL/min/1 .73 m2 [facility] Chem S GFR/1.73 sq M.predicted among non-blacks MDRD (S/P/Bld) [Vol rate/Area] mL/min/1.73 m2 Normal >=59mL/min/1 .73 m2 [facility] Chem S Glucose [Mass/Vol] 98 [...] - 11.0 E9/L [facility] HemeAutoSS [facility] PCR ([facility]on 03-15 SARS-CoV-2 (COVID-19) RNA JOSÉ MIGUEL+probe Ql (Unsp spec) Detected Critically abnormal NOT DETECTED [facility] Comment on above: Result Comment: This test is not yet approved or cleared by the [place] FDA. When there are no FDA-approved or cleared tests available, and other criteria are met, FDA can make tests available under an emergency access mechanism called an Emergency Use Authorization (EUA). The EUA for this test is supported by the Marketing Information Analyst of Health and Human Service's declaration that [...] longer be used). Performed By: #### C MP, JENNIE, LIPA #### [facility] [address] [address] [address] Manuel Sandhu GROUP A STREP CULTUREon 03-15 S. pyogenes Ag Ql (Unsp spec) Culture Observations: NEGATIVE FOR GROUP A STREPTOCOCCUS. Normal [facility] Comment on above: Performed By: #### U MICRO, ERUR #### [facility] [address] [address] [address] Manuel Sandhu INFLUENZA A AND B AGon 04-07 INFLUENZA A AG Negative Normal NEGATIVE SEE COMMENT [facility] Comment on above: Performed By: #### I NFLUAB #### [facility] [address] [address] [address] Manuel Sandhu INFLUENZA B AG Negative Normal NEGATIVE SEE COMMENT [facility] Comment on above: Performed By: #### I NFLUAB #### [facility] [address] [address] [address] Manuel Sandhu INTERNAL CONTROLS Within Normal Limits Normal Wi thin Normal Limits [facility] Comment on above: Performed By: #### I NFLUAB #### [facility] [address] [address] [address] Manuel Sandhu STREPT SCREENon 04-07-2022 STREP SCREEN A Negative Normal NEGATIVE [facility] Comment on above: Performed By: #### U MICRO, ERUR #### [facility] [address] [address] [address] Manuel Sandhu CHEMISTRYOrdered By: SYSTEM SYSTEM [...] PM) Normal Negative [facility] UA Auto SS Sharpes.plasma/Sharpes .RBC (Bld) [Mass ratio] 0-3 /HPF Normal [...] [facility] UA Auto SS Urobilinogen Qn (U) [id number] {Lucila'U}/dL Normal 0.0 - 1.0 EU/dL [facility] UA Auto SS WBC Auto Ql (U) Negative (04/03/22 6:51 PM) Normal Negative [facility] UA Auto SS WBC LM.HPF (Urine sed) [#/Area] 0-5 /HPF Normal 0-5/HPF [facility] UA Auto SS GROUP A STREP CULTUREon 01-13 S. pyogenes Ag Ql (Unsp spec) Culture Observations: NEGATIVE FOR GROUP A STREPTOCOCCUS. Normal [facility] Comment on above: Performed By: #### I NFLUAB #### [facility] [address] [place] [address] Dr. Manuel Sandhu STREPT SCREENon 02-08-2022 STREP SCREEN A Negative Normal NEGATIVE [facility] Comment on above: Performed By: #### I NFLUAB #### [facility] [address] [place] [address] Dr. Manuel Sandhu CBC AUTO DIFFon 01-30-2022 BASO # 0.1 103/ul Normal 0.0-0.1 [facility] Comment on above: Performed By: #### C BC #### [facility] [address] [place] [address] Dr. Manuel Sandhu Basophils/100 WBC (Bld) 0.4 % Normal 0.2-2.0 [facility] Comment on above: Performed By: #### C BC #### [facility] [address] [place] [address] Dr. Manuel Sandhu EO # 0.4 103/ul Normal 0.0-0.7 [facility] Comment on above: Performed By: #### C BC #### [facility] [address] [place] [address] Dr. Manuel Sandhu Eosinophils/100 WBC (Bld) 3.0 % Normal 0.9-7.0 [facility] Comment on above: Performed By: #### C BC #### [facility] [address] [place] [address] Dr. Manuel Sandhu Erythrocyte distribution width (RBC) [Ratio] 13.3 % Normal 11.0-15.0 [facility] Comment on above: Performed By: #### C BC #### [facility] [address] [place] [address] Dr. Manuel Sandhu Hematocrit (Bld) [Volume fraction] 36.8 % Normal 36.0-48.0 [facility] Comment on above: Performed By: #### C BC #### [facility] [address] [place] [address] Dr. Manuel Sandhu Hemoglobin (Bld) [Mass/Vol] 12.2 g/dL Normal 12.0-16.0 [facility] Comment on above: Performed By: #### C BC #### [facility] [address] [place] [address] Dr. Manuel Sandhu IG # 0.04 10e3/ul Critically high 0.00-0.03 [facility] Comment on above: Performed By: #### C BC #### [facility] [address] [place] [address] Dr. Manuel Sandhu IG % 0.3 % Normal 0.0-0.5 [facility] Comment on above: Performed By: #### C BC #### [facility] [address] [place] [address] Dr. Manuel Sandhu LYMPH # 2.8 103/ul Normal 1.2-3.8 [facility] Comment on above: Performed By: #### C BC #### [facility] [address] [place] [address] Dr. Manuel Sandhu Lymphocytes/100 WBC (Bld) 23.0 % Normal 20.5-60.0 [facility] Comment on above: Performed By: #### C BC #### [facility] [address] [place] [address] Dr. Manuel Sandhu MANUAL DIFF REQ NO Normal [facility] Comment on above: Performed By: #### C BC #### [facility] [address] [place] [address] Dr. Manuel Sandhu MCH (RBC) [Entitic mass] 32.1 pg Normal 26.7-34.0 [facility] Comment on above: Performed By: #### C BC #### [facility] [address] [place] [address] Dr. Manuel Sandhu MCHC (RBC) [Mass/Vol] 33.2 g/dL Normal 29.9-35.2 [facility] Comment on above: Performed By: #### C BC #### [facility] [address] [place] [address] Dr. Manuel Sandhu MCV (RBC) [Entitic vol] 96.8 fL Normal 81.0-99.0 [facility] Comment on above: Performed By: #### C BC #### [facility] [address] [place] [address] Dr. Manuel Sandhu MONO # 0.7 103/ul Normal 0.3-0.8 [facility] Comment on above: Performed By: #### C BC #### [facility] [address] [place] [address] Dr. Manuel Sandhu Monocytes/100 WBC (Bld) 5.6 % Normal 1.7-12.0 [facility] Comment on above: Performed By: #### C BC #### [facility] [address] [place] [address] Dr. Manuel Sandhu NEUT # 8.2 103/ul Critically high 1.4-6.5 [facility] Comment on above: Performed By: #### C BC #### [facility] [address] [place] [address] Dr. Manuel Sandhu Neutrophils/100 WBC (Bld) 67.7 % Normal 43.0-75.0 [facility] Comment on above: Performed By: #### C BC #### [facility] [address] [place] [address] Dr. Manuel Sandhu Platelet mean volume (Bld) [Entitic vol] 11.2 fL Normal 9.5-13.5 [facility] Comment on above: Performed By: #### C BC #### [facility] [address] [place] [address] Dr. Manuel Sandhu PLT 312 103/ul Normal 150-450 [facility] Comment on above: Performed By: #### C BC #### [facility] [address] [place] [address] Dr. Manuel Sandhu RBC 3.80 106/ul Critically low 4.20-5.40 [facility] Comment on above: Performed By: #### C BC #### [facility] [address] [place] [address] Dr. Manuel Sandhu WBC 12.1 103/ul Critically high 4.0-11.0 [facility] Comment on above: Performed By: #### C BC #### [facility] [address] [place] [address] Dr. Manuel Sandhu Covid-19 PCR (CVDTBH)on 05-1 9-2022 SARS-CoV-2 (COVID-19) RNA JOSÉ MIGUEL+probe Ql (Unsp spec) Not detected Normal NOT DETECTED [facility] Comment on above: Result Comment: This test is not yet approved or cleared by the [place] FDA. When there are no FDA-approved or cleared tests available, and other criteria are met, FDA can make tests available under an emergency access mechanism called an Emergency Use Authorization (EUA). The EUA for this test is supported by the Bridger of Health and Human Service's (HHS's) declaration [...] SARS-CoV-2. Performed By: #### C VDTBH #### [facility] [address] [place] [address] Dr. Manuel Sandhu DRUG SCREEN RAPID (URINE)on 01-30-2022 AMP Negative Normal NEGATIVE [facility] Comment on above: Performed By: #### U MICRO, ERUR #### [facility] [address] [place] [address] Dr. Manuel Sandhu BAR Negative Normal NEGATIVE [facility] Comment on above: Performed By: #### U MICRO, ERUR #### [facility] [address] [address] [address] Manuel Sandhu BUP Negative Normal NEGATIVE [facility] Comment on above: Performed By: #### U MICRO, ERUR #### [facility] [address] [place] [address] Dr. Manuel Sandhu BZO Negative Normal NEGATIVE [facility] Comment on above: Performed By: #### U MICRO, ERUR #### [facility] [address] [place] [address] Dr. Manuel Sandhu WISAM Negative Normal NEGATIVE [facility] Comment on above: Performed By: #### U MICRO, ERUR #### [facility] [address] [address] [address] Manuel Sandhu CUT-OFFS SEE BELOW Normal [facility] Comment on above: Result Comment: AMP (Amphetamine): [...] Performed By: #### U MICRO, ERUR #### [facility] [address] [place] [address] Dr. Manuel Sandhu DRUG CUT HEADER DRUG CLASS TEST SYST EM CUT-OFF CONCENTRATIONS ARE FOLLOWS: Normal [facility] Comment on above: Performed By: #### U MICRO, ERUR #### [facility] [address] [place] [address] Dr. Manuel Sandhu mAMP Negative Normal NEGATIVE [facility] Comment on above: Performed By: #### U MICRO, ERUR #### [facility] [address] [address] [address] Manuel Sandhu MTD Negative Normal NEGATIVE [facility] Comment on above: Performed By: #### U MICRO, ERUR #### [facility] [address] [address] [address] Manuel Sandhu OPI Negative Normal NEGATIVE [facility] Comment on above: Performed By: #### U MICRO, ERUR #### [facility] [address] [place] [address] Dr. Manuel Sandhu OXY Negative Normal NEGATIVE [facility] Comment on above: Performed By: #### U MICRO, ERUR #### [facility] [address] [address] [address] Manuel Sandhu PCP Negative Normal NEGATIVE [facility] Comment on above: Performed By: #### U MICRO, ERUR #### [facility] [address] [address] [address] Manuel Sandhu PPX Negative Normal NEGATIVE [facility] Comment on above: Performed By: #### U MICRO, ERUR #### [facility] [address] [place] [address] Dr. Manuel Sandhu TCA Negative Normal NEGATIVE [facility] Comment on above: Performed By: #### U MICRO, ERUR #### [facility] [address] [address] [address] Manuel Sandhu THC Negative Normal NEGATIVE [facility] Comment on above: Performed By: #### U MICRO, ERUR #### [facility] [address] [place] [address] Dr. Manuel Sandhu ER URINE PROFILEon 2 Bilirubin Ql (U) Negative Normal NEGATIVE [facility] Comment on above: Performed By: #### U MICRO, ERUR #### [facility] [address] [place] [address] Dr. Manuel Sandhu Clarity (U) CLEAR Normal CLEAR [facility] Comment on above: Performed By: #### U MICRO, ERUR #### [facility] [address] [place] [address] Dr. Manuel Sandhu Color (U) LT. YELLOW Normal YELLOW [facility] Comment on above: Performed By: #### U MICRO, ERUR #### [facility] [address] [place] [address] Dr. Manuel Sandhu ERUAHD A micrscopic examination will be performed if indicated. Normal [facility] Comment on above: Performed By: #### U MICRO, ERUR #### [facility] [address] [place] [address] Dr. Manuel Sandhu Glucose Ql (U) Negative Normal NEGATIVE [facility] Comment on above: Performed By: #### U MICRO, ERUR #### [facility] [address] [place] [address] Dr. Manuel Sandhu Hemoglobin Ql (U) Negative Normal NEGATIVE [facility] Comment on above: Performed By: #### U MICRO, ERUR #### [facility] [address] [place] [address] Dr. Manuel Sandhu Ketones Ql (U) Negative Normal NEGATIVE [facility] Comment on above: Performed By: #### U MICRO, ERUR #### [facility] [address] [place] [address] Dr. Manuel Sandhu LEUKOCYTES Negative Normal NEGATIVE [facility] Comment on above: Performed By: #### U MICRO, ERUR #### [facility] [address] [place] [address] Dr. Manuel Sandhu Nitrite Ql (U) Negative Normal NEGATIVE [facility] Comment on above: Performed By: #### U MICRO, ERUR #### [facility] [address] [place] [address] Dr. Manuel Sandhu pH (U) 5.5 [pH] Normal 5-9 [facility] Comment on above: Performed By: #### U MICRO, ERUR #### [facility] [address] [place] [address] Dr. Manuel Sandhu SPEC GRAVITY <=1.005 Abnormal 1.005-<=1.02 5 [facility] Comment on above: Performed By: #### U MICRO, ERUR #### [facility] [address] [place] [address] Dr. Manuel Sandhu UA PROTEIN Negative Normal NEGATIVE/ TRACE [facility] Comment on above: Performed By: #### U MICRO, ERUR #### [facility] [address] [place] [address] Dr. Manuel Sandhu UR MICRO IND NOT INDICATED Normal [facility] Comment on above: Performed By: #### U MICRO, ERUR #### [facility] [address] [place] [address] Dr. Manuel Sandhu Urobilinogen Qn (U) 0.2 {Lucila'U}/dL Normal 0.2 - 1. 0 [facility] Comment on above: Performed By: #### U MICRO, ERUR #### [facility] [address] [address] [address] Manuel Sandhu ETHANOL (BLD ALC)on 01-31-20 22 ALC NOTE NOTE: 80 mg/dl is legal limit for a blood alcohol level Normal [facility] Comment on above: Performed By: #### I NFLUAB #### [facility] [address] [address] [address] Manuel Sandhu Ethanol [Mass/Vol] 47 mg/dL Normal [facility] Comment on above: Performed By: #### I NFLUAB #### [facility] [address] [address] [address] Manuel Sandhu PREG HCG QUALon 01-30-2022 , QUAL Negative Normal NEGATIVE [facility] Comment on above: Performed By: #### U MICRO, ERUR #### [facility] [address] [address] [address] Manuel Sandhu PROF 14(COMP METB)on 022 Albumin [Mass/Vol] 3.8 g/dL Normal 3.4-5.0 [facility] Comment on above: Performed By: #### I NFLUAB #### [facility] [address] [address] [address] Manuel Sandhu Albumin/Globulin [Mass ratio] 1.1 {ratio} Normal [facility] Comment on above: Performed By: #### I NFLUAB #### [facility] [address] [address] [address] Mnauel Sandhu ALP [Catalytic activity/Vol] 88 U/L Normal 46-116 [facility] Comment on above: Performed By: #### I NFLUAB #### [facility] [address] [address] [address] Manuel Sandhu ALT [Catalytic activity/Vol] 30 U/L Normal 14-59 [facility] Comment on above: Performed By: #### I NFLUAB #### [facility] [address] [address] [address] Manuel Sandhu Anion gap [Moles/Vol] 17.3 mmol/L Normal e [facility] Comment on above: Performed By: #### I NFLUAB #### [facility] [address] [address] [address] Manuel Sandhu AST [Catalytic activity/Vol] 17 U/L Normal 15-37 [facility] Comment on above: Performed By: #### I NFLUAB #### [facility] [address] [address] [address] Manuel Sandhu Bilirubin [Mass/Vol] 0.2 mg/dL Normal 0.2-1.0 [facility] Comment on above: Performed By: #### I NFLUAB #### [facility] [address] [address] [address] Manuel Sandhu Calcium [Mass/Vol] 8.9 mg/dL Normal 8.5-10.1 [facility] Comment on above: Performed By: #### I NFLUAB #### [facility] [address] [address] [address] Manuel Sandhu Chloride [Moles/Vol] 109 mmol/L Critically high 98-107 [facility] Comment on above: Performed By: #### I NFLUAB #### [facility] [address] [address] [address] Manuel Sandhu CO2 [Moles/Vol] 20.2 mmol/L Critically low 21.0-32.0 [facility] Comment on above: Performed By: #### I NFLUAB #### [facility] [address] [address] [address] Manuel Sandhu Creatinine [Mass/Vol] 0.69 mg/dL Normal 0.55-1.02 [facility] Comment on above: Performed By: #### I NFLUAB #### [facility] [address] [address] [address] Manuel Sandhu EGFR-AF MARTINIQUAIS >60 Normal >=60 [facility] Comment on above: Performed By: #### I NFLUAB #### [facility] [address] [address] [address] Manuel Sandhu EGFR-NON AF MARTINIQUAIS >60 Normal >=60 [facility] Comment on above: Performed By: #### I NFLUAB #### [facility] [address] [address] [address] Manuel Sandhu Globulin (S) [Mass/Vol] 3.6 g/dL Normal [facility] Comment on above: Performed By: #### I NFLUAB #### [facility] [address] [address] [address] Manuel Sandhu Glucose [Mass/Vol] 79 mg/dL Normal 74-106 [facility] Comment on above: Performed By: #### I NFLUAB #### [facility] [address] [address] [address] Manuel Sandhu Potassium [Moles/Vol] 3.5 mmol/L Normal 3.5-5.1 [facility] Comment on above: Performed By: #### I NFLUAB #### [facility] [address] [place] [address] Dr. Manuel Sandhu Protein [Mass/Vol] 7.4 g/dL Normal 6.4-8.2 [facility] Comment on above: Performed By: #### I NFLUAB #### [facility] [address] [address] [address] Manuel Sandhu Sodium [Moles/Vol] 143 mmol/L Normal 136-145 [facility] Comment on above: Performed By: #### I NFLUAB #### [facility] [address] [address] [address] Manuel Sandhu Urea nitrogen [Mass/Vol] 18.0 mg/dL Normal 7.0-18.0 [facility] Comment on above: Performed By: #### I NFLUAB #### [facility] [address] [address] [address] Manuel Sandhu Urea nitrogen/Creatinine [Mass ratio] 26.1 mg/mg Normal [facility] Comment on above: Performed By: #### I NFLUAB #### [facility] [address] [address] [address] Manuel Sandhu AMYLASEon 11-16-2021 Amylase [Catalytic activity/Vol] 60 U/L Normal 31-110 [facility] Comment on above: Performed By: #### C JENNIE PATRICK LIPA #### [facility] [address] [place] [address] Dr. Manuel Sandhu CBC AUTO DIFFon 11-16-2021 BASO # 0.1 103/ul Normal 0.0-0.1 [facility] Comment on above: Performed By: #### C JENNIE PATRICK LIPA #### [facility] [address] [place] [address] Dr. Manuel Sandhu Basophils/100 WBC (Bld) 0.5 % Normal 0.2-2.0 [facility] Comment on above: Performed By: #### C JENNIE PATRICK LIPA #### [facility] [address] [place] [address] Dr. Manuel Sandhu EO # 0.3 103/ul Normal 0.0-0.7 [facility] Comment on above: Performed By: #### C JENNIE PATRICK LIPA #### [facility] [address] [place] [address] Dr. Manuel Sandhu Eosinophils/100 WBC (Bld) 3.1 % Normal 0.9-7.0 [facility] Comment on above: Performed By: #### C JENNIE PATRICK LIPA #### [facility] [address] [place] [address] Dr. Manuel Sandhu Erythrocyte distribution width (RBC) [Ratio] 13.4 % Normal 11.0-15.0 [facility] Comment on above: Performed By: #### C JENNIE PATRICK LIPA #### [facility] [address] [place] [address] Dr. Manuel Sandhu Hematocrit (Bld) [Volume fraction] 39.0 % Normal 36.0-48.0 [facility] Comment on above: Performed By: #### C JENNIE PATRICK LIPA #### [facility] [address] [place] [address] Dr. Manuel Sandhu Hemoglobin (Bld) [Mass/Vol] 12.8 g/dL Normal 12.0-16.0 [facility] Comment on above: Performed By: #### C JENNIE PATRICK, LIPA #### [facility] [address] [address] [address] Manuel Sandhu IG # 0.03 10e3/ul Normal 0.00-0.03 [facility] Comment on above: Performed By: #### C MP, JENNIE, LIPA #### [facility] [address] [address] [address] Manuel Sandhu IG % 0.3 % Normal 0.0-0.5 [facility] Comment on above: Performed By: #### C MP, JENNIE, LIPA #### [facility] [address] [place] [address] Dr. Manuel Sandhu LYMPH # 2.8 103/ul Normal 1.2-3.8 [facility] Comment on above: Performed By: #### C MP, JENNIE, LIPA #### [facility] [address] [place] [address] Dr. Manuel Sandhu Lymphocytes/100 WBC (Bld) 29.9 % Normal 20.5-60.0 [facility] Comment on above: Performed By: #### C MP, JENNIE, LIPA #### [facility] [address] [place] [address] Dr. Manuel Sandhu MANUAL DIFF REQ NO Normal [facility] Comment on above: Performed By: #### C MP, JENNIE, LIPA #### [facility] [address] [place] [address] Dr. Manuel Sandhu MCH (RBC) [Entitic mass] 32.2 pg Normal 26.7-34.0 [facility] Comment on above: Performed By: #### C MP, JENNIE, LIPA #### [facility] [address] [place] [address] Dr. Manuel Sandhu MCHC (RBC) [Mass/Vol] 32.8 g/dL Normal 29.9-35.2 [facility] Comment on above: Performed By: #### C MP, JENNIE, LIPA #### [facility] [address] [address] [address] Manuel Sandhu MCV (RBC) [Entitic vol] 98.0 fL Normal 81.0-99.0 [facility] Comment on above: Performed By: #### C JENNIE PATRICK LIPA #### [facility] [address] [place] [address] Dr. Manuel Sandhu MONO # 0.7 103/ul Normal 0.3-0.8 [facility] Comment on above: Performed By: #### C JENNIE PATRICK LIPA #### [facility] [address] [place] [address] Dr. Manuel Sandhu Monocytes/100 WBC (Bld) 7.7 % Normal 1.7-12.0 [facility] Comment on above: Performed By: #### C JENNIE PATRICK LIPA #### [facility] [address] [place] [address] Dr. Manuel Sandhu NEUT # 5.5 103/ul Normal 1.4-6.5 [facility] Comment on above: Performed By: #### C JENNIE PATRICK LIPA #### [facility] [address] [place] [address] Dr. Manuel Sandhu Neutrophils/100 WBC (Bld) 58.5 % Normal 43.0-75.0 [facility] Comment on above: Performed By: #### C JENNIE PATRICK LIPA #### [facility] [address] [place] [address] Dr. Manuel Sandhu Platelet mean volume (Bld) [Entitic vol] 11.7 fL Normal 9.5-13.5 [facility] Comment on above: Performed By: #### C JENNIE PATRICK, LIPA #### [facility] [address] [place] [address] Dr. Manuel Sandhu PLT 301 103/ul Normal 150-450 [facility] Comment on above: Performed By: #### C JENNIE PATRICK, LIPA #### [facility] [address] [place] [address] Dr. Manuel Sandhu RBC 3.98 106/ul Critically low 4.20-5.40 [facility] Comment on above: Performed By: #### C JENNIE PARTICK, LIPA #### [facility] [address], [place] [address] Dr. Manuel Sandhu WBC 9.3 103/ul Normal 4.0-11.0 [facility] Comment on above: Performed By: #### C JENNIE PATRICK LIPA #### [facility] [address], [place] [address] ABD/PELVIS WO CONon [...] HARMONY HARRELL Date: 2021-11-16 19:55 Normal [facility] ER URINE PROFILEon 2 Bilirubin Ql (U) Negative Normal NEGATIVE [facility] Comment on above: Performed By: #### C MP, JENNIE, LIPA #### [facility] [address] [place] [address] Dr. Manuel Sandhu Clarity (U) CLEAR Normal CLEAR [facility] Comment on above: Performed By: #### C MP, JENNIE, LIPA #### [facility] [address] [address] [address] Manuel Sandhu Color (U) LT. YELLOW Normal YELLOW [facility] Comment on above: Performed By: #### C MP, JENNIE, LIPA #### [facility] [address] [place] [address] Dr. Manuel Sandhu ERUAHD A micrscopic examination will be performed if indicated. Normal [facility] Comment on above: Performed By: #### C MP, JENNIE, LIPA #### [facility] [address] [address] [address] Manuel Sandhu Glucose Ql (U) Negative Normal NEGATIVE [facility] Comment on above: Performed By: #### C MP, JENNIE, LIPA #### [facility] [address] [place] [address] Dr. Manuel Sandhu Hemoglobin Ql (U) Negative Normal NEGATIVE [facility] Comment on above: Performed By: #### C MP, JENNIE, LIPA #### [facility] [address] [place] [address] Dr. Manuel Sandhu Ketones Ql (U) Negative Normal NEGATIVE [facility] Comment on above: Performed By: #### C MP, JENNIE, LIPA #### [facility] [address] [place] [address] Dr. Manuel Sandhu LEUKOCYTES Negative Normal NEGATIVE [facility] Comment on above: Performed By: #### C MP JENNIE, LIPA #### [facility] [address] [place] [address] Dr. Manuel Sandhu Nitrite Ql (U) Negative Normal NEGATIVE [facility] Comment on above: Performed By: #### C JENNIE PATRICK LIPA #### [facility] [address] [place] [address] Dr. Manuel Sandhu pH (U) 7.0 [pH] Normal 5-9 [facility] Comment on above: Performed By: #### C JENNIE PATRICK, LIPA #### [facility] [address] [place] [address] Dr. Manuel Sandhu SPEC GRAVITY <=1.005 Abnormal 1.005-<=1.02 5 [facility] Comment on above: Performed By: #### C CELINA JENNIE, LIPA #### [facility] [address] [place] [address] Dr. Manuel Sandhu UA PROTEIN Negative Normal NEGATIVE/ TRACE [facility] Comment on above: Performed By: #### C JENNIE PATRICK, LIPA #### [facility] [address] [place] [address] Dr. Manuel Sandhu UR MICRO IND NOT INDICATED Normal [facility] Comment on above: Performed By: #### C CELINA JENNIE, LIPA #### [facility] [address] [place] [address] Dr. Manuel Sandhu Urobilinogen Qn (U) 0.2 {Lucila'U}/dL Normal 0.2 - 1. 0 [facility] Comment on above: Performed By: #### C CELINA JENNIE, LIPA #### [facility] [address] [place] [address] Dr. Manuel Sandhu LIPASEon 11-16-2021 Lipase [Catalytic activity/Vol] 78.0 U/L Normal 23.0-300.0 [facility] Comment on above: Performed By: #### C MP, JENNIE, LIPA #### [facility] [address] [address] [address] Manuel Sandhu URon 11-16-2021 , QUAL Negative Normal NEGATIVE [facility] Comment on above: Performed By: #### C MP, JENNIE, LIPA #### [facility] [address] [address] [address] Manuel Sandhu PROF 14(COMP METB)on 022 Albumin [Mass/Vol] 4.1 g/dL Normal 3.5-5.0 [facility] Comment on above: Performed By: #### C MP, JENNIE, LIPA #### [facility] [address] [place] [address] Dr. Manuel Sandhu Albumin/Globulin [Mass ratio] 1.1 {ratio} Normal [facility] Comment on above: Performed By: #### C MP, JENNIE, LIPA #### [facility] [address] [address] [address] Manuel Sandhu ALP [Catalytic activity/Vol] 102 U/L Normal 38-126 [facility] Comment on above: Performed By: #### C MP, JENNIE, LIPA #### [facility] [address] [address] [address] Manuel Sandhu ALT [Catalytic activity/Vol] 39 U/L Normal 9-52 [facility] Comment on above: Performed By: #### C MP, JENNIE, LIPA #### [facility] [address] [address] [address] Manuel Sandhu Anion gap [Moles/Vol] 11.5 mmol/L Normal [facility] Comment on above: Performed By: #### C MP, JENNIE, LIPA #### [facility] [address] [address] [address] Manuel Sandhu AST [Catalytic activity/Vol] 28 U/L Normal 14-36 [facility] Comment on above: Performed By: #### C MP, JENNIE, LIPA #### [facility] [address] [place] [address] Dr. Manuel Sandhu Bilirubin [Mass/Vol] 0.2 mg/dL Normal 0.2-1.3 [facility] Comment on above: Performed By: #### C MP, JENNIE, LIPA #### [facility] [address] [place] [address] Dr. Manuel Sandhu Calcium [Mass/Vol] 9.1 mg/dL Normal 8.4-10.2 [facility] Comment on above: Performed By: #### C MP JENNIE, LIPA #### [facility] [address] [place] [address] Dr. Manuel Sandhu Chloride [Moles/Vol] 105 mmol/L Normal 98-107 [facility] Comment on above: Performed By: #### C CELINA JENNIE, LIPA #### [facility] [address] [place] [address] Dr. Manuel Sandhu CO2 [Moles/Vol] 25.0 mmol/L Normal 22.0-30.0 [facility] Comment on above: Performed By: #### C CELINA JENNIE, LIPA #### [facility] [address] [place] [address] Dr. Manuel Sandhu Creatinine [Mass/Vol] 0.77 mg/dL Normal 0.52-1.04 [facility] Comment on above: Performed By: #### C MP JENNIE, LIPA #### [facility] [address] [place] [address] Dr. Manuel Sandhu EGFR-AF MARTINIQUAIS >60 Normal >=60 [facility] Comment on above: Performed By: #### C MP JENNIE, LIPA #### [facility] [address] [place] [address] Dr. Manuel Sandhu EGFR-NON AF MARTINIQUAIS >60 Normal >=60 [facility] Comment on above: Performed By: #### C MP, JENNIE, LIPA #### [facility] [address] [place] [address] Dr. Manuel Sandhu Globulin (S) [Mass/Vol] 3.8 g/dL Normal [facility] Comment on above: Performed By: #### C JENNIE PATRICK LIPA #### [facility] [address] [address] [address] Manuel Sandhu Glucose [Mass/Vol] 85 mg/dL Normal 74-106 [facility] Comment on above: Performed By: #### C JENNIE PATRICK LIPA #### [facility] [address] [address] [address] Manuel Sandhu Potassium [Moles/Vol] 3.5 mmol/L Normal 3.4-5.0 [facility] Comment on above: Performed By: #### C JENNIE PATRICK LIPA #### [facility] [address] [address] [address] Manuel Sandhu Protein [Mass/Vol] 7.9 g/dL Normal 6.1-8.2 [facility] Comment on above: Performed By: #### C JENNIE PATRICK LIPA #### [facility] [address] [address] [address] Manuel Sandhu Sodium [Moles/Vol] 138 mmol/L Normal 137-145 [facility] Comment on above: Performed By: #### C JENNIE PATRICK LIPA #### [facility] [address] [address] [address] Manuel Sandhu Urea nitrogen [Mass/Vol] 18.0 mg/dL Critically high 7.0-17.0 [facility] Comment on above: Performed By: #### C JENNIE PATRICK LIPA #### [facility] [address] [address] [address] Manuel Sandhu Urea nitrogen/Creatinine [Mass ratio] 23.4 mg/mg Normal [facility] Comment on above: Performed By: #### C JENNIE PATRICK LIPA #### [facility] [address] [address] ABDOMEN PELVIS W [...] in the pelvis, which could be physiologic. [employer] Phone: EXAMINATION: CT OF T SULEIMAN ABDOMEN AND PELVIS WITH CONTRAST 02/04/2021 1:00 [...] for the patient's age. No pelvic lymphadenopathy. Peritoneum/Retroperiton eum: Abdominal aorta is normal in caliber. No retroperitoneal lymphadenopathy. Bones/Soft Tissues: There is mild stranding in the midline and left upper abdominal wall subcutaneous fat. No fluid collection or gas in the subcutaneous fat. No acute or suspicious osseous abnormality. 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 [employer] Work Phone: Dario, pn Incoming Radiant Results From [employer] - 02/04/2021 4:32 PM EDT EXAMINATION: CT [...] for the patient's age. No pelvic lymphadenopathy. Peritoneum/Retroperiton eum: Abdominal aorta is normal in caliber. No [...] in the pelvis, which could be physiologic. [employer] Phone: [employer] Phone: Basic Metabolic Panel w/ Ref brannon to MGOrdered By: Ruiz Joel on 02-01-2021 Anion gap [Moles/Vol] 15 mmol/L 9 - 17 mmol/L [employer] Phone: Calcium [Mass/Vol] 8.5 mg/dL Low 8.6 - 10. 4 mg/dL [employer] Phone: Chloride [Moles/Vol] 107 mmol/L 98 - 10 7 mmol/L [employer] Phone: CO2 [Moles/Vol] 16 mmol/L Low 20 - 31 mmol/L [employer] Phone: Creatinine [Mass/Vol] 0.36 mg/dL Low 0.50 - 0.90 mg/dL [employer] Phone: GFR >60 >60 mL/min [employer] Phone: GFR Non- >60 >60 mL/min [employer] Phone: GFR/1.73 sq M.predicted MDRD (S/P/Bld) [Vol rate/Area] [employer] Phone: Comment on above: Average GFR for 30-3 9 years old: 107 mL/min/1.73sq m Chronic Kidney Disease: <60 mL/min/1.73sq m Kidney failure: <15 mL/min/1.73sq m eGFR calculated using average adult body mass. Additional eGFR calculator available at: http://www.[employer]_crcl_2012.htm GFR/1.73 sq M.predicted MDRD (S/P/Bld) [Vol rate/Area] NOT REPORTED [employer] Phone: Glucose [Mass/Vol] 79 mg/dL 70 - 99 mg/dL [employer] Phone: Interpretation and review of laboratory results Abnormal [employer] Phone: Potassium [Moles/Vol] 3.7 mmol/L 3.7 - 5.3 mmol/L [employer] Phone: Sodium [Moles/Vol] 138 mmol/L 135 - 144 mmol/L [employer] Phone: Urea nitrogen (BldV) [Mass/Vol] 2 mg/dL Low 6 - 20 mg/dL [employer] Phone: Urea nitrogen/Creatinine (Bld) [Mass ratio] NOT REPORTED [employer] Phone: [employer] Phone: CBC WITH AUTO DIFFERENTIALOr dered By: Ruiz Joel on 02-01-2021 [employer] # 0.28 [email or web address] [facility] Work Phone: Absolute Immature Granulocyte 0.06 [employer] Work Phone: [employer] Lymph # 1.62 [employer] Work Phone: [employer] Potter # 1.46 [employer] [facility] [facility] Work Phone: Basophils (Bld) [#/Vol] 0.04 10*3/uL [employer] Work Phone: Basophils/100 WBC (Bld) 0 % 0 - 2 % [employer] Phone: Differential Type NOT REPORTED [employer] Phone: Eosinophils/100 WBC (Bld) 3 % 1 - 4 % [employer] Work Phone: Hematocrit (Bld) [Volume fraction] 33.7 % Low 36.3 - 47.1 % [employer] Phone: Hemoglobin.gastrointes tinal spec 1 Ql (Stl) 10.3 g/dL Low 11.9 - 15.1 g/dL [employer] Phone: Immature granulocytes/100 WBC (Bld) 1 % High 0 [employer] Work Phone: Interpretation and review of laboratory results Abnormal [employer] Phone: Lymphocytes/100 WBC (Bld) 14 % Low 24 - 43 % [employer] Phone: MCH (RBC) [Entitic mass] 29.9 pg 25.2 - 33.5 pg [employer] Phone: MCHC (RBC) [Mass/Vol] 30.6 g/dL 28.4 - 34.8 g/dL [employer] Phone: MCV (RBC) [Entitic vol] 98.0 fL 82.6 - 102.9 fL [employer] Phone: Monocytes/100 WBC (Bld) 13 % High 3 - 12 % [employer] Phone: NRBC Automated 0.0 0.0 per 100 WBC [employer] Phone: Platelet distribution width (Bld) [Ratio] 13.4 % 11.8 - 14.4 % [employer] Work Phone: Platelet Estimate NOT REPORTED [employer] Work Phone: Platelet mean volume (Bld) [Entitic vol] 11.6 fL 8.1 - 13.5 fL [employer] Work Phone: Platelets (Bld) [#/Vol] 392 10*3/uL [employer] Work Phone: RBC (Bld) [#/Vol] 3.44 10*6/uL Low 3.95 - 5.1 1 m/uL [employer] Work Phone: RBC (Bld) [#/Vol] NOT REPORTED [employer] Work Phone: Segmented neutrophils/100 WBC (Bld) 69 % High 36 - 65 % [employer] Work Phone: Segs Absolute 7.88 [employer] Work Phone: WBC (Bld) [#/Vol] 11.3 10*3/uL [employer] Work Phone: WBC (Bld) [#/Vol] NOT REPORTED [employer] Phone: [employer] Work Phone: Basic Metabolic Panel w/ Ref brannon to MGOrdered By: Nicolasa Le on 01-31-2021 Anion gap [Moles/Vol] 17 mmol/L 9 - 17 mmol/L [employer] Phone: Calcium [Mass/Vol] 8.7 mg/dL 8.6 - 10. 4 mg/dL [employer] Work Phone: Chloride [Moles/Vol] 105 mmol/L 98 - 10 7 mmol/L [employer] Work Phone: CO2 [Moles/Vol] 15 mmol/L Low 20 - 31 mmol/L [employer] Work Phone: Creatinine [Mass/Vol] 0.36 mg/dL Low 0.50 - 0.90 mg/dL [employer] Phone: GFR >60 >60 mL/min [employer] Phone: GFR Non- >60 >60 mL/min [employer] Phone: GFR/1.73 sq M.predicted MDRD (S/P/Bld) [Vol rate/Area] [employer] Phone: Comment on above: Average GFR for 30-3 9 years old: 107 mL/min/1.73sq m Chronic Kidney Disease: <60 mL/min/1.73sq m Kidney failure: <15 mL/min/1.73sq m eGFR calculated using average adult body mass. Additional eGFR calculator available at: http://www.[place] [employer]/multiple_crcl_2012.htm GFR/1.73 sq M.predicted MDRD (S/P/Bld) [Vol rate/Area] NOT REPORTED [employer] Phone: Glucose [Mass/Vol] 78 mg/dL 70 - 99 mg/dL [employer] Phone: Interpretation and review of laboratory results Abnormal [employer] Phone: Potassium [Moles/Vol] 3.8 mmol/L 3.7 - 5.3 mmol/L [employer] Phone: Sodium [Moles/Vol] 137 mmol/L 135 - 144 mmol/L [employer] Phone: Urea nitrogen (BldV) [Mass/Vol] 3 mg/dL Low 6 - 20 mg/dL [employer] Phone: Urea nitrogen/Creatinine (Bld) [Mass ratio] NOT REPORTED [employer] Phone: [employer] Phone: CBC auto differentialOrdered By: Nicolasa Le on 01-31-2021 Absolute Eos # 0.30 [email or web address] [facility] Work Phone: Absolute Immature Granulocyte 0.15 [employer] Work Phone: Absolute Lymph # 2.10 [email or web address] Work Phone: Absolute Potter # 2.25 High [employer] [facility] Work Phone: Basophils (Bld) [#/Vol] 0.00 10*3/uL [employer] Work Phone: Basophils/100 WBC (Bld) 0 % 0 - 2 % [employer] Work Phone: Differential Type NOT REPORTED [employer] Phone: Eosinophils/100 WBC (Bld) 2 % 1 - 4 % [employer] Phone: Hematocrit (Bld) [Volume fraction] 35.7 % Low 36.3 - 47.1 % [employer] Work Phone: Hemoglobin.gastrointes tinal spec 1 Ql (Stl) 10.8 g/dL Low 11.9 - 15.1 g/dL [employer] Phone: Immature granulocytes/100 WBC (Bld) 1 % High 0 [employer] Phone: Interpretation and review of laboratory results Abnormal [employer] Phone: Lymphocytes/100 WBC (Bld) 14 % Low 24 - 43 % [employer] Work Phone: MCH (RBC) [Entitic mass] 29.9 pg 25.2 - 33.5 pg [employer] Work Phone: MCHC (RBC) [Mass/Vol] 30.3 g/dL 28.4 - 34.8 g/dL [employer] Phone: MCV (RBC) [Entitic vol] 98.9 fL 82.6 - 102.9 fL [employer] Work Phone: Monocytes/100 WBC (Bld) 15 % High 3 - 12 % [employer] Work Phone: Morphology Celso (Bld) [Interp] Normal [employer] Phone: NRBC Automated 0.0 0.0 per 100 WBC [employer] Phone: Platelet distribution width (Bld) [Ratio] 13.5 % 11.8 - 14.4 % [employer] Work Phone: Platelet Estimate NOT REPORTED [employer] Phone: Platelet mean volume (Bld) [Entitic vol] 11.6 fL 8.1 - 13.5 fL [employer] Phone: Platelets (Bld) [#/Vol] 375 10*3/uL [employer] Phone: RBC (Bld) [#/Vol] 3.61 10*6/uL Low 3.95 - 5.1 1 m/uL [employer] Work Phone: RBC (Bld) [#/Vol] NOT REPORTED [employer] Phone: Segmented neutrophils/100 WBC (Bld) 68 % High 36 - 65 % [employer] Phone: Segs Absolute 10.20 High [facility] Work Phone: WBC (Bld) [#/Vol] 15.0 10*3/uL High [employer] Work Phone: WBC (Bld) [#/Vol] NOT REPORTED [employer] Phone: [employer] Work Phone: CBC Auto DifferentialOrdered By: David Nash on 01-30-2021 Absolute Eos # 0.21 [employer] Work Phone: Absolute Immature Granulocyte 0.04 [employer] Work Phone: Absolute Lymph # 1.88 [email or web address] [facility] Work Phone: Absolute Potter # 1.43 High [email or web address] [facility] Work Phone: Basophils (Bld) [#/Vol] 0.04 10*3/uL [employer] Work Phone: Basophils/100 WBC (Bld) 0 % 0 - 2 % [employer] Phone: Differential Type NOT REPORTED [employer] Phone: Eosinophils/100 WBC (Bld) 2 % 1 - 4 % [employer] Phone: Hematocrit (Bld) [Volume fraction] 36.2 % Low 36.3 - 47.1 % [employer] Phone: Hemoglobin.gastrointes tinal spec 1 Ql (Stl) 11.7 g/dL Low 11.9 - 15.1 g/dL [employer] Phone: Immature granulocytes/100 WBC (Bld) 0 % 0 [employer] Work Phone: Interpretation and review of laboratory results Abnormal [employer] Phone: Lymphocytes/100 WBC (Bld) 15 % Low 24 - 43 % [employer] Work Phone: MCH (RBC) [Entitic mass] 30.3 pg 25.2 - 33.5 pg [employer] Phone: MCHC (RBC) [Mass/Vol] 32.3 g/dL 28.4 - 34.8 g/dL [employer] Phone: MCV (RBC) [Entitic vol] 93.8 fL 82.6 - 102.9 fL [employer] Phone: Monocytes/100 WBC (Bld) 12 % 3 - 12 % [employer] Phone: NRBC Automated 0.0 0.0 per 100 WBC [employer] Phone: Platelet distribution width (Bld) [Ratio] 13.2 % 11.8 - 14.4 % [employer] Phone: Platelet Estimate NOT REPORTED [employer] Phone: Platelet mean volume (Bld) [Entitic vol] 11.6 fL 8.1 - 13.5 fL [employer] Work Phone: Platelets (Bld) [#/Vol] 414 10*3/uL [employer] Phone: RBC (Bld) [#/Vol] 3.86 10*6/uL Low 3.95 - 5.1 1 m/uL [employer] Phone: RBC (Bld) [#/Vol] NOT REPORTED [employer] Phone: Segmented neutrophils/100 WBC (Bld) 71 % High 36 - 65 % [employer] Work Phone: Segs Absolute 8.75 High [employer] Work Phone: WBC (Bld) [#/Vol] 12.4 10*3/uL High [employer] Work Phone: WBC (Bld) [#/Vol] NOT REPORTED [employer] Phone: [employer] Work Phone: CT ABDOMEN PELVIS W IV [...] anterolisthesis and marked decrease in disc height. [employer] Work Phone: EXAMINATION: CT OF T ABDOMEN AND PELVIS WITH CONTRAST 01/30/2021 10:36 [...] No urinary bladder wall thickening was noted. Peritoneum/Retroperiton eum: No abdominal or pelvic lymphadenopathy were identified. Bones/Soft Tissues: Subcutaneous soft tissue inflammation was noted along the left anterolateral abdominal wall. Grade 1 anterolisthesis of L5 over S1 was noted secondary to bilateral pars interarticularis defects. Marked decrease in disc height was noted at the L5-S1 disc. [employer] Work Phone: Dario, pn Incoming Radiant Results From [employer] - 01/30/2021 12:20 PM EDT EXAMINATION: CT [...] No urinary bladder wall thickening was noted. Peritoneum/Retroperiton eum: No abdominal or pelvic lymphadenopathy were identified. [...] anterolisthesis and marked decrease in disc height. [employer] Phone: [employer] Phone: Comprehensive Metabolic Pane l w/ Reflex to MGOrdered By: David Nash on 01-30-2021 Albumin [Mass/Vol] 3.6 g/dL 3.5 - 5.2 g/dL [employer] Phone: Albumin/Globulin [Mass ratio] 1.0 {ratio} [employer] Phone: ALP (Bld) [Catalytic activity/Vol] 107 U/L High 35 - 104 U/L [employer] Phone: ALT [Catalytic activity/Vol] 33 U/L 5 - 33 U/L [employer] Phone: Anion gap [Moles/Vol] 17 mmol/L 9 - 17 mmol/L [employer] Phone: AST [Catalytic activity/Vol] 26 U/L <32 [employer] Phone: Bilirubin [Mass/Vol] 0.25 mg/dL Low 0.3 - 1 .2 mg/dL [employer] Phone: Calcium [Mass/Vol] 9.5 mg/dL 8.6 - 10. 4 mg/dL [employer] Phone: Chloride [Moles/Vol] 104 mmol/L 98 - 10 7 mmol/L [employer] Phone: CO2 [Moles/Vol] 19 mmol/L Low 20 - 31 mmol/L [employer] Phone: Creatinine [Mass/Vol] 0.47 mg/dL Low 0.50 - 0.90 mg/dL [employer] Phone: Free PSA/Total PSA [Mass fraction] 7.3 g/dL 6.4 - 8.3 g/dL [employer] Phone: GFR >60 >60 mL/min [employer] Phone: GFR Non- >60 >60 mL/min [employer] Phone: Glucose [Mass/Vol] 79 mg/dL 70 - 99 mg/dL [employer] Phone: Interpretation and review of laboratory results Abnormal [employer] Phone: Potassium [Moles/Vol] 3.8 mmol/L 3.7 - 5.3 mmol/L [employer] Phone: Sodium [Moles/Vol] 140 mmol/L 135 - 144 mmol/L [employer] Phone: Urea nitrogen (BldV) [Mass/Vol] 5 mg/dL Low 6 - 20 mg/dL [employer] Phone: Urea nitrogen/Creatinine (Bld) [Mass ratio] 11 [employer] Phone: HCG Qualitative, SerumOrdere d By: Noreen Mckeon on 01-30-2021 hCG Qual Negative NEGATIVE [employer] Phone: Comment on above: Specimens with hCG l evels near the threshold of the test (25 mIU/mL) may give a negative or indeterminate result. In such cases, another test should be performed with a new specimen in 48-72 hours. If early is suspected clinically in this setting, correlation with quantitative serum b-hCG level is suggested. [employer] has confirmed the use of plasma for this test. This has not been cleared or approved by the U.S. Food and Drug Administration. The FDA has determined that such clearance is not necessary. [employer] Phone: Laboratory - Chemistry and C hemistry - challengeOrdered By: David Nash on 01-30-2021 GFR/1.73 sq M.predicted MDRD (S/P/Bld) [Vol rate/Area] [employer] Phone: Comment on above: Average GFR for 30-3 9 years old: 107 mL/min/1.73sq m Chronic Kidney Disease: <60 mL/min/1.73sq m Kidney failure: <15 mL/min/1.73sq m eGFR calculated using average adult body mass. Additional eGFR calculator available at: http://www.emotion.me.[employer]/multiple_crcl_2012.htm Stage 1: Some kidney damage normal GFR Stage 2: Mild kidney damage GFR 60-89 Stage 3: Moderate kidney damage GFR 30-59 Stage 4: Severe kidney damage GFR 15-29 Stage 5: Severe kidney damage GFR <15 ESRD - chronic treatment by dialysis or transplant Lactic AcidOrdered By: Beatriz Nash on 01-30-2021 Lactate [Moles/Vol] 0.6 mmol/L 0.5 - 2. 2 mmol/L [employer] Phone: [employer] Phone: LipaseOrdered By: David dalton on 01-30-2021 Lipase [Catalytic activity/Vol] 30 U/L 13 - 60 U/L [facility] [employer] Work Phone: Microscopic UrinalysisOrdere d By: David Nash on 01-30-2021 - [facility] [employer] Work Phone: Amorphous, UA NOT REPORTED None [facility] Work Phone: Bacteria, UA TRACE Abnormal None [facility] Work Phone: Casts UA NOT REPORTED /LPF [facility] Work Phone: Crystals, UA NOT REPORTED None /HPF [facility] Work Phone: Epithelial Cells UA 2 TO 5 [facility] Work Phone: Interpretation and review of laboratory results Abnormal [facility] Work Phone: Mucus, UA NOT REPORTED None [facility] Work Phone: Other Observations UA NOT REPORTED NOT REQ. [facility] Work Phone: RBC, UA 0 TO 2 [facility] Work Phone: Renal Epithelial, UA NOT REPORTED 0 /HPF [facility] Work Phone: Trichomonas, UA NOT REPORTED None [facility] Work Phone: WBC, UA 2 TO 5 [facility] Work Phone: Yeast, UA NOT REPORTED None [facility] Work Phone: [facility] Work Phone: No Panel InformationOrdered By: David Nash on 01-30-2021 [facility] Work Phone: Protime-INROrdered By: Linda Mckeon on 01-30-2021 INR Coag (Bld) [Relative time] 1.1 {INR} [facility] Work Phone: Comment on above: Therapeutic Range: Moderate Anticoagulant Intensity: INR = 2.0-3.0 High Anticoagulant Intensity: INR = 2.5-3.5 PT Coag (PPP) [Time] 11.4 s [facility] [employer] Work Phone: [facility] Work Phone: Urinalysis, reflex to micros copicOrdered By: David Nash on 01-30-2021 Bilirubin Urine SMALL Abnormal NEGATIVE [facility] Work Phone: Color, UA YELLOW YELLOW [facility] Work Phone: Glucose, Ur Negative NEGATIVE [facility] Work Phone: Interpretation and review of laboratory results Abnormal [facility] Work Phone: Ketones Ql (U) 4+ Abnormal NEGATIVE [facility] Work Phone: Leukocyte esterase Test strip Ql (U) Negative NEGATIVE [facility] Work Phone: Nitrite, Urine Negative NEGATIVE [facility] Work Phone: pH, UA 5.5 [facility] [employer] Work Phone: Protein, UA Negative NEGATIVE [facility] Work Phone: Specific [place], UA <1.005 Low [facility] [employer] Work Phone: Turbidity UA CLEAR CLEAR [facility] Work Phone: Urinalysis Comments NOT REPORTED [facility] [employer] Work Phone: Urine Hgb Negative NEGATIVE [facility] Work Phone: Urobilinogen, Urine Normal Normal [facility] Work Phone: [facility] Work Phone: Basic Metabolic PanelOrdered By: Gamaliel Vickers on 01-08-2021 Anion gap [Moles/Vol] 11 mmol/L 9 - 17 mmol/L [facility] [employer] Work Phone: Calcium [Mass/Vol] 9.1 mg/dL 8.6 - 10. 4 mg/dL [employer] Phone: Chloride [Moles/Vol] 105 mmol/L 98 - 10 7 mmol/L [employer] Phone: CO2 [Moles/Vol] 23 mmol/L 20 - 31 mmol/L [employer] Phone: Creatinine [Mass/Vol] 0.57 mg/dL 0.50 - 0.90 mg/dL [employer] Phone: GFR >60 >60 mL/min [employer] Phone: GFR Non- >60 >60 mL/min [employer] Phone: GFR/1.73 sq M.predicted MDRD (S/P/Bld) [Vol rate/Area] [employer] Phone: Comment on above: Average GFR for 30-3 9 years old: 107 mL/min/1.73sq m Chronic Kidney Disease: <60 mL/min/1.73sq m Kidney failure: <15 mL/min/1.73sq m eGFR calculated using average adult body mass. Additional eGFR calculator available at: http://www.[place] [employer]/multiple_crcl_2012.htm GFR/1.73 sq M.predicted MDRD (S/P/Bld) [Vol rate/Area] NOT REPORTED [employer] Phone: Glucose [Mass/Vol] 106 mg/dL High 70 - 99 mg/dL [employer] Phone: Interpretation and review of laboratory results Abnormal [employer] Phone: Potassium [Moles/Vol] 3.7 mmol/L 3.7 - 5.3 mmol/L [employer] Phone: Sodium [Moles/Vol] 139 mmol/L 135 - 144 mmol/L [employer] Phone: Urea nitrogen (BldV) [Mass/Vol] 7 mg/dL 6 - 20 mg/dL [employer] Phone: Urea nitrogen/Creatinine (Bld) [Mass ratio] NOT REPORTED [employer] Phone: CBCOrdered By: Gamaliel castillo on 01-08-2021 Hematocrit (Bld) [Volume fraction] 38.0 % 36.3 - 47.1 % [employer] Phone: Hemoglobin.gastrointes tinal spec 1 Ql (Stl) 12.2 g/dL 11.9 - 15.1 g/dL [employer] Phone: Interpretation and review of laboratory results Abnormal [employer] Phone: MCH (RBC) [Entitic mass] 30.4 pg 25.2 - 33.5 pg [employer] Phone: MCHC (RBC) [Mass/Vol] 32.1 g/dL 28.4 - 34.8 g/dL [employer] Phone: MCV (RBC) [Entitic vol] 94.8 fL 82.6 - 102.9 fL [employer] Phone: NRBC Automated 0.0 0.0 per 100 WBC [employer] Phone: Platelet distribution width (Bld) [Ratio] 13.5 % 11.8 - 14.4 % [employer] Phone: Platelet mean volume (Bld) [Entitic vol] 11.4 fL 8.1 - 13.5 fL [employer] Phone: Platelets (Bld) [#/Vol] 304 10*3/uL [employer] Phone: RBC (Bld) [#/Vol] 4.01 10*6/uL 3.95 - 5.1 1 m/uL [employer] Phone: WBC (Bld) [#/Vol] 18.0 10*3/uL High [employer] Phone: FL ESOPHAGRAMOrdered By: Yadi Vickers on 01-08-2021 No evidence of postoperative leak. [employer] Phone: EXAMINATION: SINGLE CONTRAST ESOPHAGRAM 01/08/2021 HISTORY: [...] KUB/radiographs to assess progression as clinically warranted. [employer] Phone: Dario, pn Incoming Rad[facility] 01/08/2021 12:29 PM EDT EXAMINATION: SINGLE [...] warranted. IMPRESSION: No evidence of postoperative leak. [employer] Phone: Basic Metabolic PanelOrdered By: Gamaliel Vickers on 01-07-2021 Anion gap [Moles/Vol] 10 mmol/L 9 - 17 mmol/L [employer] Phone: Calcium [Mass/Vol] 8.8 mg/dL 8.6 - 10. 4 mg/dL [employer] Phone: Chloride [Moles/Vol] 105 mmol/L 98 - 10 7 mmol/L [employer] Phone: CO2 [Moles/Vol] 20 mmol/L 20 - 31 mmol/L [employer] Phone: Creatinine [Mass/Vol] 0.68 mg/dL 0.50 - 0.90 mg/dL [employer] Phone: GFR >60 >60 mL/min [employer] Phone: GFR Non- >60 >60 mL/min [employer] Phone: GFR/1.73 sq M.predicted MDRD (S/P/Bld) [Vol rate/Area] [employer] Phone: Comment on above: Average GFR for 30-3 9 years old: 107 mL/min/1.73sq m Chronic Kidney Disease: <60 mL/min/1.73sq m Kidney failure: <15 mL/min/1.73sq m eGFR calculated using average adult body mass. Additional eGFR calculator available at: http://www.[place] [employer]/multiple_crcl_2012.htm GFR/1.73 sq M.predicted MDRD (S/P/Bld) [Vol rate/Area] NOT REPORTED [employer] Phone: Glucose [Mass/Vol] 215 mg/dL High 70 - 99 mg/dL [employer] Phone: Interpretation and review of laboratory results Abnormal [employer] Phone: Potassium [Moles/Vol] 4.2 mmol/L 3.7 - 5.3 mmol/L [employer] Phone: Sodium [Moles/Vol] 135 mmol/L 135 - 144 mmol/L [employer] Phone: Urea nitrogen (BldV) [Mass/Vol] 14 mg/dL 6 - 20 mg/dL [employer] Phone: Urea nitrogen/Creatinine (Bld) [Mass ratio] NOT REPORTED [employer] Phone: CBC without DiffOrdered By: Gamaliel Vickers on 01-07-2021 Hematocrit (Bld) [Volume fraction] 38.3 % 36.3 - 47.1 % [employer] Phone: Hemoglobin.gastrointes tinal spec 1 Ql (Stl) 12.5 g/dL 11.9 - 15.1 g/dL [employer] Phone: Interpretation and review of laboratory results Abnormal [employer] Phone: MCH (RBC) [Entitic mass] 30.9 pg 25.2 - 33.5 pg [employer] Phone: MCHC (RBC) [Mass/Vol] 32.6 g/dL 28.4 - 34.8 g/dL [employer] Phone: MCV (RBC) [Entitic vol] 94.8 fL 82.6 - 102.9 fL [employer] Phone: NRBC Automated 0.0 0.0 per 100 WBC [employer] Phone: Platelet distribution width (Bld) [Ratio] 13.4 % 11.8 - 14.4 % [employer] Phone: Platelet mean volume (Bld) [Entitic vol] 11.2 fL 8.1 - 13.5 fL [employer] Phone: Platelets (Bld) [#/Vol] 373 10*3/uL [employer] Phone: RBC (Bld) [#/Vol] 4.04 10*6/uL 3.95 - 5.1 1 m/uL [employer] Phone: WBC (Bld) [#/Vol] 24.9 10*3/uL High [employer] Phone: POCT urine pregnancyOrdered By: Gamaliel Vickers on 01-07-2021 Beta HCG ( test) Ql (U) Negative NEGATIVE [employer] Phone: Comment on above: Specimens with hCG l evels near the threshold of the test (25 mIU/mL) may give a negative or indeterminate result. In such cases, another test should be performed with a new specimen in 48-72 hours. If early is suspected clinically in this setting, correlation with quantitative serum b-hCG level is suggested. [id number] 01-04-2021 SARS-CoV-2 (COVID-19) RNA JOSÉ MIGUEL+probe Ql (Unsp spec) Normal [facility] Comment on above: Performed By: #### C OVID #### [facility] [address] [place], [place] [id number] Dynamic Balancer: Wei Reyna MD [id number] [place], [place] [id number] Dynamic Balancer: Harpal Adair MD SARS-CoV-2 (COVID-19) RNA JOSÉ MIGUEL+probe Ql (Unsp spec) Not detected Normal NOTDET [facility] Comment on above: Result Comment: The specimen is NEGATIVE for SARS-CoV-2, the novel coronavirus associated with COVID-19. A negative result does not rule out COVID-19. [employer] SARS-CoV-2 for use on the [employer] is a real-time RT-PCR test intended [...] this assay. Fact sheet for Healthcare Providers: https://www.fda.gov/media/113982/download Fact sheet for Patients: https://www.fda.gov/media/732848/download METHODOLOGY: RT-PCR Performed By: #### C OVID #### [facility] [address] [place] [address] Dynamic Balancer: Wei Reyan MD [address] [place], [place] [id number] Dynamic Balancer: Harpal Adair MD [id number] 01-03-2021 SARS-CoV-2 (COVID-19) RNA JOSÉ MIGUEL+probe Ql (Unsp spec) .NASOPHARYNGEAL SWAB Normal [facility] Comment on above: Performed By: #### C OVID #### [facility] [address] [place], [place] [id number] Dynamic Balancer: Wei Reyna MD [address] [id number] Dynamic Balancer: Harpal Adair MD Nicotine, BloodOrdered By: Jose Vickers on 12-26-2020 [id number] <2 ng/mL [facility] Work Phone: Cotinine <2 ng/mL [employer] Work Phone: Nicotine <2 ng/mL [facility] [employer] Phone: Comment on above: (NOTE) Consistent with [...] developed and its performance characteristics determined by [facility]. It has not been cleared or approved by the US Food and Drug Administration. This test was performed in a CLIA certified laboratory and is intended for clinical purposes. Performed By: [facility] [address] [place] [id number] Tissue Rewinder: Brissa Bonilla MD EKG 12 LeadOrdered By: Enmanuel Vickers on 12-25-2020 Atrial Rate 70 BPM [employer] Phone: P [place] 20 degrees [employer] Work Phone: P-R Interval 176 ms [employer] Phone: Q-T Interval 414 ms [employer] Phone: QRS Duration 88 ms [employer] Phone: QTc Calculation (Bazett) 447 ms [employer] Phone: R [place] 7 degrees [employer] Phone: T [place] 8 degrees [employer] Phone: Ventricular Rate 70 BPM [employer] Work Phone: Normal sinus rhythm Normal ECG No previous ECGs available [employer] Phone: Dario, Mhpn Incoming E kg Results From [facility] - 12/25/2020 12:47 PM EDT Normal sinus rhythm Normal ECG No previous ECGs available [employer] Phone: APTTOrdered By: Gamaliel horvath on 12-24-2020 aPTT Coag (Bld) [Time] 23.1 s [employer] Work Phone: Comment on above: IV Heparin Therapy Range: 48.6-77.8 Basic Metabolic PanelOrdered By: Gamaliel Vickers on 12-24-2020 Anion gap [Moles/Vol] 10 mmol/L 9 - 17 mmol/L [employer] Phone: Calcium [Mass/Vol] 9.4 mg/dL 8.6 - 10. 4 mg/dL [employer] Phone: Chloride [Moles/Vol] 106 mmol/L 98 - 10 7 mmol/L [employer] Phone: CO2 [Moles/Vol] 23 mmol/L 20 - 31 mmol/L [employer] Phone: Creatinine [Mass/Vol] 0.56 mg/dL 0.50 - 0.90 mg/dL [employer] Phone: GFR >60 >60 mL/min [employer] Phone: GFR Non- >60 >60 mL/min [employer] Phone: GFR/1.73 sq M.predicted MDRD (S/P/Bld) [Vol rate/Area] [employer] Phone: Comment on above: Average GFR for 30-3 9 years old: 107 mL/min/1.73sq m Chronic Kidney Disease: <60 mL/min/1.73sq m Kidney failure: <15 mL/min/1.73sq m eGFR calculated using average adult body mass. Additional eGFR calculator available at: http://www.emotion.me.Legend[employer]D/multiple_crcl_2012.htm GFR/1.73 sq M.predicted MDRD (S/P/Bld) [Vol rate/Area] NOT REPORTED [employer] Phone: Glucose [Mass/Vol] 86 mg/dL 70 - 99 mg/dL [employer] Phone: Potassium [Moles/Vol] 3.8 mmol/L 3.7 - 5.3 mmol/L [employer] Phone: Sodium [Moles/Vol] 139 mmol/L 135 - 144 mmol/L [employer] Phone: Urea nitrogen (BldV) [Mass/Vol] 12 mg/dL 6 - 20 mg/dL [employer] Phone: Urea nitrogen/Creatinine (Bld) [Mass ratio] NOT REPORTED [employer] Phone: CBCOrdered By: Gamaliel castillo on 12-24-2020 Hematocrit (Bld) [Volume fraction] 41.2 % 36.3 - 47.1 % [employer] Phone: Hemoglobin.gastrointes tinal spec 1 Ql (Stl) 13.4 g/dL 11.9 - 15.1 g/dL [employer] Phone: MCH (RBC) [Entitic mass] 30.5 pg 25.2 - 33.5 pg [employer] Phone: MCHC (RBC) [Mass/Vol] 32.5 g/dL 28.4 - 34.8 g/dL [employer] Phone: MCV (RBC) [Entitic vol] 93.6 fL 82.6 - 102.9 fL [employer] Phone: NRBC Automated 0.0 0.0 per 100 WBC [employer] Phone: Platelet distribution width (Bld) [Ratio] 13.2 % 11.8 - 14.4 % [employer] Phone: Platelet mean volume (Bld) [Entitic vol] 10.7 fL 8.1 - 13.5 fL [employer] Phone: Platelets (Bld) [#/Vol] 391 10*3/uL [employer] Phone: RBC (Bld) [#/Vol] 4.40 10*6/uL 3.95 - 5.1 1 m/uL [employer] Phone: WBC (Bld) [#/Vol] 8.5 10*3/uL [employer] Phone: Protime-INROrdered By: Enmanuel Vickers on 12-24-2020 INR Coag (Bld) [Relative time] 0.9 {INR} [employer] Phone: Comment on above: Therapeutic Range: Moderate Anticoagulant Intensity: INR = 2.0-3.0 High Anticoagulant Intensity: INR = 2.5-3.5 PT Coag (PPP) [Time] 10 s [employer] Phone: XR CHEST (2 VW)on 12-24-2020 No acute cardiopulmonary findings [employer] Phone: EXAMINATION: TWO XRA Y VIEWS OF THE CHEST 12/24/2020 11:24 am COMPARISON: None. HISTORY: ORDERING SYSTEM PROVIDED HISTORY: preop gastric bypass [employer] TECHNOLOGIST PROVIDED HISTORY: preop gastric bypass Itan En Y Reason for Exam: no chest complaints FINDINGS: Normal cardiopericardial silhouette There are no significant mediastinal, pleural, parenchymal or osseous findings [employer] Phone: Dario, [facility] Incoming Radiant Results From [facility] - 12/24/2020 11:30 AM EDT EXAMINATION: TWO XRAY VIEWS OF THE CHEST 12/24/2020 11:24 am COMPARISON: None. HISTORY: ORDERING SYSTEM PROVIDED HISTORY: preop gastric bypass Tian [employer] TECHNOLOGIST PROVIDED HISTORY: preop gastric bypass Tian En Y Reason for Exam: no chest complaints FINDINGS: Normal cardiopericardial silhouette There are no significant mediastinal, pleural, parenchymal or osseous findings IMPRESSION: No acute cardiopulmonary findings [employer] Phone: XR CHEST (2 VW)Ordered By: Jose Vickers on 12-24-2020 No acute cardiopulmonary findings [employer] Phone: EXAMINATION: TWO XRA Y VIEWS OF THE CHEST 12/24/2020 11:24 am COMPARISON: None. HISTORY: ORDERING SYSTEM PROVIDED HISTORY: preop gastric bypass Tian [employer] TECHNOLOGIST PROVIDED HISTORY: preop gastric bypass Tian En Y Reason for Exam: no chest complaints FINDINGS: Normal cardiopericardial silhouette There are no significant mediastinal, pleural, parenchymal or osseous findings [employer] Phone: Dario, [facility] Incoming Radiant Results From [facility] - 12/24/2020 11:30 AM EDT EXAMINATION: TWO XRAY VIEWS OF THE CHEST 12/24/2020 11:24 am COMPARISON: None. HISTORY: ORDERING SYSTEM PROVIDED HISTORY: preop gastric bypass Tian [employer] TECHNOLOGIST PROVIDED HISTORY: preop gastric bypass Tian En Y Reason for Exam: no chest complaints FINDINGS: Normal cardiopericardial silhouette There are no significant mediastinal, pleural, parenchymal or osseous findings IMPRESSION: No acute cardiopulmonary findings [employer] Phone: [place] UGI W AIR CONTRASTon 10-15 Intermittent significant spontaneous GE reflux. Otherwise unremarkable double-contrast upper GI and esophagram. [employer] Phone: EXAMINATION: DOUBLE CONTRAST UPPER GI SERIES [...] The duodenal bulb and sweep are normal. [employer] Phone: Dario, [facility] Incoming Radiant Results From [facility] - 11/01/2020 5:21 PM EST EXAMINATION: DOUBLE [...] Otherwise unremarkable double-contrast upper GI and esophagram. [facility] Work Phone: COVID-19on 09-25-2020 SARS-CoV-2 [place], [place] SARS-CoV-2 Not Detected Not Detected [place], [place] Comment on above: The specimen is NEGATIVE for SARS-CoV-2, the novel coronavirus associated with COVID-19. A negative result does not rule out COVID-19. Heide SARS-CoV-2 for use on the [employer] is a real-time RT-PCR test intended [...] this assay. Fact sheet for Healthcare Providers: https://www.fda.gov/media/041352/download Fact sheet for Patients: https://www.fda.gov/media/660939/download METHODOLOGY: RT-PCR SARS-CoV-2, Rapid [place], [place] Source .NASOPHARYNGEAL SWAB [place], [place] Vital Signs Date Time Vital Sign Value Performing Clinician Facility 01-27-2025 10:12-0400 Diastolic blood pressure 91 mm[Hg] Orlando Bolongaro Trevor [facility] 01-27-2025 10:12-0400 Heart rate 86 /min Orlando Bolongaro Trevor [facility] 01-27-2025 10:12-0400 Mean blood pressure 106 mm[Hg] Orlando Bolongaro Trevor [facility] 01-27-2025 10:12-0400 Respiratory rate 14 /min Orlando Bolongaro Trevor [facility] 01-27-2025 10:12-0400 Systolic blood pressure 136 mm[Hg] Orlando Kate [facility] 01-24-2025 09:59-0400 Heart rate 76 /min Babar Mayers [facility] 01-24-2025 09:59-0400 SaO2% (BldA) [Mass fraction] 100 % Eckert Talib [facility] 01-24-2025 09:59-0400 Diastolic blood pressure 88 mm[Hg] Eckert Talib [facility] 01-24-2025 09:59-0400 Mean blood pressure 104 mm[Hg] Babar Mayers [facility] 01-24-2025 09:59-0400 Systolic blood pressure 137 mm[Hg] Babar Mayers [facility] 01-24-2025 09:54-0400 Diastolic blood pressure 80 mm[Hg] Babar Mayers [facility] 01-24-2025 09:54-0400 Heart rate 79 /min Babar Mayers [facility] 01-24-2025 09:54-0400 Respiratory rate 14 /min Babar Mayers [facility] 01-24-2025 09:54-0400 SaO2% (BldA) [Mass fraction] 100 % Babar Mayers [facility] 01-24-2025 09:54-0400 Systolic blood pressure 141 mm[Hg] Babar Mayers [facility] 01-24-2025 08:35-0400 Heart rate 79 /min Babar Mayers [facility] 01-24-2025 08:35-0400 SaO2% (BldA) [Mass fraction] 99 % Babar Mayers [facility] 01-24-2025 08:34-0400 Body temperature 97.88 [degF] Babar Mayers [facility] 01-24-2025 08:34-0400 Diastolic blood pressure 91 mm[Hg] Babar Mayers [facility] 01-24-2025 08:34-0400 Mean blood pressure 105 mm[Hg] Babar Mayers [facility] 01-24-2025 08:34-0400 Systolic blood pressure 134 mm[Hg] Babar Mayers [facility] 01-24-2025 08:32-0400 Respiratory rate 16 /min Babar Mayers [facility] 01-13-2025 08:15-0400 Diastolic blood pressure 95 mm[Hg] Orlando Kate [facility] 01-13-2025 08:15-0400 Heart rate 79 /min Orlando Kate [facility] 01-13-2025 08:15-0400 Mean blood pressure 108 mm[Hg] Orlando Kate [facility] 01-13-2025 08:15-0400 Respiratory rate 16 /min Orlando Kate [facility] 01-13-2025 08:15-0400 Systolic blood pressure 133 mm[Hg] Orlando Kate [facility] 12-16-2024 10:31-0400 Body height 170.18 cm [facility] 12-16-2024 10:31-0400 Body weight 83.91 kg [facility] 11-28-2024 10:23-0400 Heart rate 64 /min Babar Mayers [facility] 11-28-2024 10:23-0400 SaO2% (BldA) [Mass fraction] 100 % Babar Mayers [facility] 11-28-2024 10:23-0400 Diastolic blood pressure 86 mm[Hg] Babar Mayers [facility] 11-28-2024 10:23-0400 Mean blood pressure 101 mm[Hg] Babar Mayers [facility] 11-28-2024 10:23-0400 Systolic blood pressure 133 mm[Hg] Babar Mayers [facility] 11-28-2024 10:23-0400 Respiratory rate 16 /min Babar Mayers [facility] 11-28-2024 10:19-0400 Diastolic blood pressure 97 mm[Hg] Babar Mayers [facility] 11-28-2024 10:19-0400 Heart rate 81 /min Babar Mayers [facility] 11-28-2024 10:19-0400 SaO2% (BldA) [Mass fraction] 97 % Babar Mayers [facility] 11-28-2024 10:19-0400 Systolic blood pressure 137 mm[Hg] Babar Mayers [facility] 11-28-2024 09:10-0400 Heart rate 77 /min Babar Mayers [facility] 11-28-2024 09:10-0400 SaO2% (BldA) [Mass fraction] 99 % Babar Mayers [facility] 11-28-2024 09:09-0400 Diastolic blood pressure 97 mm[Hg] Eckert Mayers [facility] 11-28-2024 09:09-0400 Mean blood pressure 115 mm[Hg] Babar Talib [facility] 11-28-2024 09:09-0400 Systolic blood pressure 149 mm[Hg] Babar Mayers [facility] 11-28-2024 09:09-0400 Body temperature 98.06 [degF] Eckert Talib [facility] 11-28-2024 09:06-0400 Respiratory rate 20 /min Babar Mayers [facility] 11-15-2024 13:35-0500 Diastolic blood pressure 93 mm[Hg] Orlando Kate [facility] 11-15-2024 13:35-0500 Heart rate 90 /min Orlando Kate [facility] 11-15-2024 13:35-0500 Mean blood pressure 106 mm[Hg] Orlando Kate [facility] 11-15-2024 13:35-0500 Respiratory rate 14 /min Orlando Kate [facility] 11-15-2024 13:35-0500 Systolic blood pressure 131 mm[Hg] Orlando Kate [facility] 10-18-2024 08:08-0500 Body temperature 98.24 [degF] [facility] 10-18-2024 08:08-0500 Diastolic blood pressure 88 mm[Hg] [facility] 10-18-2024 08:08-0500 Heart rate 86 /min [facility] 10-18-2024 08:08-0500 Respiratory rate 16 /min [facility] 10-18-2024 08:08-0500 SaO2% (BldA) [Mass fraction] 100 % [facility] 10-18-2024 08:08-0500 Systolic blood pressure 123 mm[Hg] [facility] 09-21-2024 11:17-0500 Body mass index (BMI) [Ratio] 30.12 kg/m2 Corby Larsen DO Work Phone: [facility] 09-21-2024 11:17-0500 Body weight 84.64 kg Christsamanta Larsen DO Work Phone: [facility] 09-21-2024 11:17-0500 Diastolic blood pressure 84 mm[Hg] Christopher Suzie DO Work Phone: [facility] 09-21-2024 11:17-0500 Heart rate 80 /min Christopher Suzie DO Work Phone: [facility] 09-21-2024 11:17-0500 SaO2% (BldA) [Mass fraction] 98 % [facility] Work Phone: [facility] 09-21-2024 11:17-0500 Systolic blood pressure 118 mm[Hg] Christopher Suzie DO Work Phone: [facility] 09-15-2024 16:36-0500 Diastolic blood pressure 82 mm[Hg] [facility] 09-15-2024 16:36-0500 Heart rate 55 /min [facility] 09-15-2024 16:36-0500 Respiratory rate 23 /min [facility] 09-15-2024 16:36-0500 SaO2% (BldA) [Mass fraction] 100 % [facility] 09-15-2024 16:36-0500 Systolic blood pressure 147 mm[Hg] [facility] 09-15-2024 13:29-0500 Body height 170.18 cm [facility] 09-15-2024 13:29-0500 Body temperature 98 [degF] [facility] 09-15-2024 13:29-0500 Body weight 89 kg [facility] 09-13-2024 09:40-0500 Body height 170.[address] 09-13-2024 09:40-0500 Body mass index (BMI) [Ratio] 29.44 kg/m2 [address] 09-13-2024 09:40-0500 Body weight 85.[address] 09-13-2024 09:40-0500 Diastolic blood pressure 76 mm[Hg] [address] 09-13-2024 09:40-0500 Systolic blood pressure 118 mm[Hg] [address] 08-08-2024 15:29-0500 Diastolic blood pressure 70 mm[Hg] Aleah Howard MD Work Phone: [facility] 08-08-2024 15:29-0500 Systolic blood pressure 110 mm[Hg] Aleah Howard MD Work Phone: [facility] 08-08-2024 15:28-0500 Body height 170.2 cm Aleah Howard MD Work Phone: [facility] 08-08-2024 15:28-0500 Body mass index (BMI) [Ratio] 29.44 kg/m2 Aleah Howard MD Work Phone: [facility] 08-08-2024 15:28-0500 Body weight 85.28 kg Aleah Howard MD Work Phone: [facility] 08-08-2024 15:28-0500 Heart rate 75 /min Aleah Howard MD Work Phone: [facility] 07-25-2024 15:08-0500 Body mass index (BMI) [Ratio] 28.94 kg/m2 Tevin Carson DO Work Phone: [facility] 07-25-2024 15:08-0500 Body weight 83.8 kg Tevin Carson DO Work Phone: [facility] 07-25-2024 15:08-0500 Diastolic blood pressure 72 mm[Hg] Tevin Carson DO Work Phone: [facility] 07-25-2024 15:08-0500 Heart rate 67 /min Tevin Carson DO Work Phone: [facility] 07-25-2024 15:08-0500 SaO2% (BldA) [Mass fraction] 100 % Tevin Carson DO Work Phone: [facility] 07-25-2024 15:08-0500 Systolic blood pressure 122 mm[Hg] Tevin Carson DO Work Phone: [facility] 07-04-2024 11:01-0400 Body height 170.2 cm Bruceceleste Tyler JOB TRAINING SPECIALIST.DESIGN TRANSFERRER Work Phone: [facility] 07-04-2024 11:01-0400 Body mass index (BMI) [Ratio] 28.98 kg/m2 Fatuma Tyler JOB TRAINING SPECIALIST.DESIGN TRANSFERRER Work Phone: [facility] 07-04-2024 11:01-0400 Body weight 83.92 kg Bellafallon FisherTyler JOB TRAINING SPECIALIST.DESIGN TRANSFERRER Work Phone: [facility] 07-01-2024 11:01-0400 Body height 170.2 cm Tevin Carson DO Work Phone: [facility] 07-01-2024 11:01-0400 Body mass index (BMI) [Ratio] 29.8 kg/m2 Tevin Carson DO Work Phone: [facility] 07-01-2024 11:01-0400 Body weight 86.3 kg Tevin Carson DO Work Phone: [facility] 07-01-2024 11:01-0400 Diastolic blood pressure 59 mm[Hg] Tevin Henriqueze DO Work Phone: [facility] 07-01-2024 11:01-0400 Heart rate 72 /min Tevin Carson DO Work Phone: [facility] 07-01-2024 11:01-0400 SaO2% (BldA) [Mass fraction] 99 % Tevin Carson DO Work Phone: [facility] 07-01-2024 11:01-0400 Systolic blood pressure 101 mm[Hg] Tevin Henriqueze DO Work Phone: [facility] 03-08-2024 15:02-0400 Diastolic blood pressure 78 mm[Hg] Alexis Shukla [facility] 03-08-2024 15:02-0400 Heart rate 65 /min Alexis Vazquez [facility] 03-08-2024 15:02-0400 Mean blood pressure 89 mm[Hg] Alexis Vazquez [facility] 03-08-2024 15:02-0400 SaO2% (BldA) [Mass fraction] 100 % Alexis Vazquez [facility] 03-08-2024 15:02-0400 Systolic blood pressure 110 mm[Hg] Alexis Vazquez [facility] 03-08-2024 14:00-0400 SaO2% (BldA) [Mass fraction] 99 % Alexis Vazquez [facility] 03-08-2024 13:37-0400 Body temperature 98.42 [degF] Alexis Vazquez [facility] 03-08-2024 13:37-0400 Diastolic blood pressure 82 mm[Hg] Alexis Vazquez [facility] 03-08-2024 13:37-0400 Heart rate 70 /min Alexis Vazquez [facility] 03-08-2024 13:37-0400 Respiratory rate 18 /min Alexis Lopeze [facility] 03-08-2024 13:37-0400 SaO2% (BldA) [Mass fraction] 100 % Alexis Vazquez [facility] 03-08-2024 13:37-0400 Systolic blood pressure 126 mm[Hg] Alexis Vazquez [facility] 03-08-2024 13:14-0400 Body temperature 98.24 [degF] Alexis Vazquez [facility] 03-08-2024 13:14-0400 Diastolic blood pressure 87 mm[Hg] Alexis Vazquez [facility] 03-08-2024 13:14-0400 Heart rate 67 /min Alexis Shukla [facility] 03-08-2024 13:14-0400 Respiratory rate 16 /min Alexis Shukla [facility] 03-08-2024 13:14-0400 Systolic blood pressure 135 mm[Hg] Alexis Shukla [facility] 03-08-2024 08:06-0400 Body height 170.2 cm Elia Baires DO Work Phone: [facility] 03-08-2024 08:06-0400 Body mass index (BMI) [Ratio] 30.9 kg/m2 Elia Baires DO Work Phone: [facility] 03-08-2024 08:06-0400 Body weight 89.5 kg Elia Baires DO Work Phone: [facility] 03-08-2024 08:06-0400 Diastolic blood pressure 72 mm[Hg] Elia Baires DO Work Phone: [facility] 03-08-2024 08:06-0400 Heart rate 82 /min Elia Baires DO Work Phone: [facility] 03-08-2024 08:06-0400 SaO2% (BldA) [Mass fraction] 100 % Elia Baires DO Work Phone: [facility] 03-08-2024 08:06-0400 Systolic blood pressure 114 mm[Hg] Elia Baires DO Work Phone: [facility] 01-04-2024 09:28-0400 Body height 170.2 cm Elia Baires DO Work Phone: [facility] 01-04-2024 09:28-0400 Body mass index (BMI) [Ratio] 31.96 kg/m2 Elia Baires DO Work Phone: [facility] 01-04-2024 09:28-0400 Body weight 92.55 kg Elia Baires DO Work Phone: [facility] 01-04-2024 [id number] Diastolic blood pressure 86 mm[Hg] Elia Baires DO Work Phone: [facility] 01-04-2024 09:28-0400 Heart rate 92 /min Elia Baires DO Work Phone: [facility] 01-04-2024 09:28-0400 SaO2% (BldA) [Mass fraction] 97 % Elia Baires DO Work Phone: [facility] 01-04-2024 [id number] Systolic blood pressure 123 mm[Hg] Elia Baires DO Work Phone: [facility] 12-31-2023 11:17-0400 Heart rate 76 /min DO Jennie Durand Work Phone: [facility] 12-31-2023 11:14-0400 Body temperature 98.2 [degF] DO Jennie Durand Work Phone: [facility] 12-31-2023 11:14-0400 Diastolic blood pressure 73 mm[Hg] DO Jennie Durand Work Phone: [facility] 12-31-2023 11:14-0400 Respiratory rate 18 /min DO Jennie Durand Work Phone: [facility] 12-31-2023 11:14-0400 SaO2% (BldA) [Mass fraction] 97 % DO Jennie Durand Work Phone: [facility] 12-31-2023 11:14-0400 Systolic blood pressure 138 mm[Hg] DO Jennie Durand Work Phone: [facility] 12-31-2023 11:13-0400 Body height 170.18 cm DO Jennie Durand Work Phone: [facility] 12-31-2023 11:13-0400 Body weight 89.35 kg DO Jennie Durand Work Phone: [facility] 12-24-2023 11:58-0400 Body height 170.18 cm DO Jennie Durand Work Phone: [facility] 12-24-2023 11:58-0400 Body temperature 97.8 [degF] DO Jennie Durand Work Phone: [facility] 12-24-2023 11:58-0400 Body weight 89 kg DO Jennie Durand Work Phone: [facility] 12-24-2023 11:58-0400 Diastolic blood pressure 91 mm[Hg] DO Jennie Durand Work Phone: [facility] 12-24-2023 11:58-0400 Heart rate 85 /min DO Jennie Durand Work Phone: [facility] 12-24-2023 11:58-0400 Respiratory rate 15 /min DO Jennie Durand Work Phone: [facility] 12-24-2023 11:58-0400 SaO2% (BldA) [Mass fraction] 100 % DO Jennie Durand Work Phone: [facility] 12-24-2023 11:58-0400 Systolic blood pressure 137 mm[Hg] DO Jennie Durand Work Phone: [facility] 12-10-2023 12:35-0400 Heart rate 70 /min DO Jennie Durand Work Phone: [facility] 12-10-2023 12:35-0400 Respiratory rate 16 /min DO Jennie Durand Work Phone: [facility] 12-10-2023 12:35-0400 SaO2% (BldA) [Mass fraction] 98 % DO Jennie Durand Work Phone: [facility] 12-10-2023 12:08-0400 Body height 170.18 cm DO Jennie Durand Work Phone: [facility] 12-10-2023 12:08-0400 Body temperature 98 [degF] DO Jennie Durand Work Phone: [facility] 12-10-2023 12:08-0400 Body weight 89.8 kg DO Jennie Durand Work Phone: [facility] 12-10-2023 12:08-0400 Diastolic blood pressure 76 mm[Hg] DO Jennie Durand Work Phone: [facility] 12-10-2023 12:08-0400 Systolic blood pressure 123 mm[Hg] DO Jennie Durand Work Phone: [facility] 09-18-2023 08:49-0500 Diastolic blood pressure 72 mm[Hg] Gamaliel Vickers DO Work Phone: [employer] 09-18-2023 08:49-0500 Heart rate 58 /min Gamaliel Vickers DO Work Phone: [facility] 09-18-2023 08:49-0500 Respiratory rate 18 /min Gamaliel Vickers DO Work Phone: [facility] 09-18-2023 08:49-0500 SaO2% (BldA) [Mass fraction] 100 % Gamaliel Vickers DO Work Phone: [facility] 09-18-2023 08:49-0500 Systolic blood pressure 111 mm[Hg] Gamaliel Vickers DO Work Phone: [facility] 09-18-2023 08:24-0500 Body temperature 97.11 [degF] Gamaliel Vickers DO Work Phone: [facility] 09-18-2023 07:23-0500 Body height 170.2 cm Gamaliel Vickers DO Work Phone: [facility] 09-18-2023 07:23-0500 Body mass index (BMI) [Ratio] 31.79 kg/m2 Gamaliel Vickers DO Work Phone: [facility] 09-18-2023 07:23-0500 Body weight 92.08 kg Gamaliel Vickers DO Work Phone: [facility] 08-15-2023 13:37-0500 Diastolic blood pressure 69 mm[Hg] DO Jennie Durand Work Phone: [facility] 08-15-2023 13:37-0500 Heart rate 70 /min DO Jennie Durand Work Phone: [facility] 08-15-2023 13:37-0500 Respiratory rate 18 /min DO Jennie Durand Work Phone: [facility] 08-15-2023 13:37-0500 SaO2% (BldA) [Mass fraction] 99 % DO Jennie Durand Work Phone: [facility] 08-15-2023 13:37-0500 Systolic blood pressure 107 mm[Hg] DO Jennie Durand Work Phone: [facility] 08-15-2023 11:29-0500 Body height 170.18 cm DO Jennie Durand Work Phone: [facility] 08-15-2023 11:29-0500 Body temperature 98.2 [degF] DO Jennie Durand Work Phone: [facility] 08-15-2023 11:29-0500 Body weight 86.18 kg DO Jennie Durand Work Phone: [facility] 08-14-2023 16:43-0500 Body height 170.18 cm DO Jennie Durand Work Phone: [facility] 08-14-2023 16:43-0500 Body temperature 98.2 [degF] DO Jennie Durand Work Phone: [facility] 08-14-2023 16:43-0500 Body weight 88.6 kg DO Jennie Durand Work Phone: [facility] 08-14-2023 16:43-0500 Diastolic blood pressure 66 mm[Hg] DO Jennie Durand Work Phone: [facility] 08-14-2023 16:43-0500 Heart rate 80 /min DO Jennie Durand Work Phone: [facility] 08-14-2023 16:43-0500 Respiratory rate 18 /min DO Jennie Durand Work Phone: [facility] 08-14-2023 16:43-0500 SaO2% (BldA) [Mass fraction] 98 % DO Jennie Durand Work Phone: [facility] 08-14-2023 16:43-0500 Systolic blood pressure 118 mm[Hg] DO Jennie Durand Work Phone: [facility] 08-13-2023 11:15-0500 Body height 170.18 cm Imad Asaad Other [employer] Other 08-13-2023 11:15-0500 Body mass index (BMI) [Ratio] 30.54 kg/m2 Imad Asaad Other [employer] Other 08-13-2023 11:15-0500 Body weight 88.45 kg Imad Asaad Other [employer] Other 08-13-2023 11:15-0500 Diastolic blood pressure 84 mm[Hg] Imad Asaad Other [employer] Other 08-13-2023 11:15-0500 Systolic blood pressure 133 mm[Hg] Imad Asaad Other [employer] Other 07-08-2023 12:05-0400 Body height 170.18 cm Ania Javed Other [employer] Other 10-25-2023 12:05-0400 Body mass index (BMI) [Ratio] 30.22 kg/m2 Ania Javed Other [employer] Other 07-08-2023 12:05-0400 Body temperature 99 [degF] Ania Javed Other [employer] Other 07-08-2023 12:05-0400 Body weight 87.54 kg Ania Javed Other [employer] Other 07-08-2023 12:05-0400 Diastolic blood pressure 64 mm[Hg] Ania Javed Other [employer] Other 07-08-2023 12:05-0400 Respiratory rate 19 /min Ania Javed Other [employer] Other 07-08-2023 12:05-0400 SaO2% (BldA) [Mass fraction] 98 % Ania Javed Other [employer] Other 07-08-2023 12:05-0400 Systolic blood pressure 110 mm[Hg] Ania Javed Other [employer] Other 07-03-2023 11:05-0400 Diastolic blood pressure 80 mm[Hg] DO Jennie Durand Work Phone: [facility] 07-03-2023 11:05-0400 Heart rate 78 /min DO Jennie Durand Work Phone: [facility] 07-03-2023 11:05-0400 Respiratory rate 16 /min DO Jennie Durand Work Phone: [facility] 07-03-2023 11:05-0400 SaO2% (BldA) [Mass fraction] 99 % DO Jennie Durand Work Phone: [facility] 07-03-2023 11:05-0400 Systolic blood pressure 119 mm[Hg] DO Jennie Hameede Work Phone: [facility] 07-03-2023 10:10-0400 Body height 170.18 cm DO Jennie Hameede Work Phone: [facility] 07-03-2023 10:10-0400 Body temperature 98.7 [degF] DO Jennie Hameede Work Phone: [facility] 07-03-2023 10:10-0400 Body weight 86.9 kg DO Jennie Hameede Work Phone: [facility] 07-02-2023 14:06-0400 Body temperature 98.06 [degF] Bakari Chester [facility] 07-02-2023 14:06-0400 Diastolic blood pressure 78 mm[Hg] Bakari Chester [facility] 07-02-2023 14:06-0400 Heart rate 91 /min Bakari Henrik [facility] 07-02-2023 14:06-0400 Respiratory rate 18 /min Bakari Henrik [facility] 07-02-2023 14:06-0400 SaO2% (BldA) [Mass fraction] 100 % Bakari Henrik [facility] 07-02-2023 14:06-0400 Systolic blood pressure 121 mm[Hg] Bakari Henrik [facility] 01-15-2023 13:30-0400 Diastolic blood pressure 85 mm[Hg] Bakari Henrik [facility] 01-15-2023 13:30-0400 Heart rate 71 /min Bakari Chester [facility] 01-15-2023 13:30-0400 Mean blood pressure 98 mm[Hg] Bakari Henrik [facility] 01-15-2023 13:30-0400 Respiratory rate 18 /min Bakari Henrik [facility] 01-15-2023 13:30-0400 SaO2% (BldA) [Mass fraction] 100 % Bakari Henrik [facility] 01-15-2023 13:30-0400 Systolic blood pressure 125 mm[Hg] Bakari Henrik [facility] 01-15-2023 12:30-0400 Diastolic blood pressure 99 mm[Hg] Bakari Henrik [facility] 01-15-2023 12:30-0400 Heart rate 78 /min Bakari Henrik [facility] 01-15-2023 12:30-0400 Mean blood pressure 107 mm[Hg] Bakari Henrik [facility] 01-15-2023 12:30-0400 Respiratory rate 18 /min Bakari Henrik [facility] 01-15-2023 12:30-0400 SaO2% (BldA) [Mass fraction] 100 % Bakari Henrik [facility] 01-15-2023 12:30-0400 Systolic blood pressure 122 mm[Hg] Bakari Henrik [facility] 01-15-2023 10:50-0400 Body temperature 98.42 [degF] Bakari Henrik [facility] 01-15-2023 10:50-0400 Diastolic blood pressure 74 mm[Hg] Bakari Henrik [facility] 01-15-2023 10:50-0400 Heart rate 77 /min Bakari Henrik [facility] 01-15-2023 10:50-0400 Mean blood pressure 92 mm[Hg] Bakari Chester [facility] 01-15-2023 10:50-0400 Respiratory rate 17 /min Bakari Chester [facility] 01-15-2023 10:50-0400 SaO2% (BldA) [Mass fraction] 99 % Bakari Chester [facility] 01-15-2023 10:50-0400 Systolic blood pressure 129 mm[Hg] Bakari Chester [facility] 12-05-2022 13:20-0400 Diastolic blood pressure 74 mm[Hg] Gal Das [facility] 12-05-2022 13:20-0400 Heart rate 58 /min Gal Das [facility] 12-05-2022 13:20-0400 Respiratory rate 18 /min Gal Das [facility] 12-05-2022 13:20-0400 SaO2% (BldA) [Mass fraction] 100 % Gal Das [facility] 12-05-2022 13:20-0400 Systolic blood pressure 110 mm[Hg] Gal Das [facility] 12-05-2022 12:00-0400 Heart rate 54 /min Gal Das [facility] 12-05-2022 12:00-0400 SaO2% (BldA) [Mass fraction] 100 % Gal Das [facility] 12-05-2022 11:59-0400 Diastolic blood pressure 72 mm[Hg] Gal Thiago [facility] 12-05-2022 11:59-0400 Mean blood pressure 84 mm[Hg] Gal Das [facility] 12-05-2022 11:59-0400 Systolic blood pressure 109 mm[Hg] Gal Das [facility] 12-05-2022 11:53-0400 Body temperature 97.52 [degF] Gal Das [facility] 12-05-2022 11:53-0400 Diastolic blood pressure 73 mm[Hg] Gal Das [facility] 12-05-2022 11:53-0400 Heart rate 59 /min Gal Das [facility] 12-05-2022 11:53-0400 Mean blood pressure 87 mm[Hg] Gal Das [facility] 12-05-2022 11:53-0400 Respiratory rate 14 /min Gal Das [facility] 12-05-2022 11:53-0400 SaO2% (BldA) [Mass fraction] 100 % Gal Das [facility] 12-05-2022 11:53-0400 Systolic blood pressure 115 mm[Hg] Gal Das [facility] 12-05-2022 11:40-0400 Mean blood pressure 80 mm[Hg] Gal Das [facility] 12-05-2022 11:40-0400 Respiratory rate 18 /min Gal Das [facility] 12-05-2022 11:30-0400 Mean blood pressure 90 mm[Hg] Gal Das [facility] 12-05-2022 11:15-0400 Body temperature 97.34 [degF] Gal Das [facility] 12-05-2022 11:10-0400 Respiratory rate 18 /min Gal Das [facility] 12-05-2022 11:05-0400 Respiratory rate 21 /min Gal Das [facility] 12-05-2022 11:00-0400 Respiratory rate 11 /min Gal Das [facility] 12-05-2022 07:15-0400 Mean blood pressure 79 mm[Hg] Gal Das [facility] 12-05-2022 07:15-0400 Body temperature 97.88 [degF] Gal Das [facility] 12-05-2022 07:15-0400 Heart rate 72 /min Gal Das [facility] 12-05-2022 07:12-0400 Mean blood pressure 82 mm[Hg] Gal Das [facility] 11-21-2022 10:44-0500 Diastolic blood pressure 75 mm[Hg] Gal Das [facility] 11-21-2022 10:44-0500 Heart rate 67 /min Gal Dsa [facility] 11-21-2022 10:44-0500 Mean blood pressure 88 mm[Hg] Gal Das [facility] 11-21-2022 10:44-0500 Systolic blood pressure 112 mm[Hg] Gal Das [facility] 11-21-2022 10:44-0500 Heart rate 71 /min Gal Das [facility] 11-21-2022 10:44-0500 SaO2% (BldA) [Mass fraction] 100 % Gal Das [facility] 11-21-2022 10:43-0500 Diastolic blood pressure 79 mm[Hg] Gal Das [facility] 11-21-2022 10:43-0500 Mean blood pressure 91 mm[Hg] Gal Das [facility] 11-21-2022 10:43-0500 Systolic blood pressure 116 mm[Hg] Gal Das [facility] 11-21-2022 10:43-0500 Respiratory rate 16 /min Gal Das [facility] 11-20-2022 08:09-0500 Body height 170.2 cm Eileen Alvarez MD Work Phone: [facility] 11-20-2022 08:09-0500 Body weight 85.73 kg Eileen Alvarez MD Work Phone: [facility] 11-20-2022 08:09-0500 Diastolic blood pressure 81 mm[Hg] Eileen Alvarez MD Work Phone: [facility] 11-20-2022 08:09-0500 Heart rate 67 /min Eileen Alvarez MD Work Phone: [facility] 11-20-2022 08:09-0500 SaO2% (BldA) [Mass fraction] 100 % Eileen Alvarez MD Work Phone: [facility] 11-20-2022 08:09-0500 Systolic blood pressure 137 mm[Hg] Eileen Alvarez MD Work Phone: [facility] 11-03-2022 12:57-0500 Blood Pressure Location Nakia Mcqueen [facility] 11-03-2022 12:57-0500 Body temperature 98.24 [degF] Nakia Mcqueen [facility] 11-03-2022 12:57-0500 Diastolic blood pressure 80 mm[Hg] Nakia Mcqueen [facility] 11-03-2022 12:57-0500 Heart rate 85 /min Nakia Mcqueen [facility] 11-03-2022 12:57-0500 SaO2% (BldA) [Mass fraction] 98 % Nakia Mcqueen [facility] 11-03-2022 12:57-0500 Systolic blood pressure 104 mm[Hg] Nakia Mcqueen [facility] 09-24-2022 06:57-0500 Blood Pressure Location Aimee Walker [facility] 09-24-2022 06:57-0500 Body temperature 98.24 [degF] Aimee Walker [facility] 09-24-2022 06:57-0500 Diastolic blood pressure 64 mm[Hg] Aimeeerin Valadezell [facility] 09-24-2022 06:57-0500 Heart rate 77 /min Aimee Valadezell [facility] 09-24-2022 06:57-0500 SaO2% (BldA) [Mass fraction] 99 % Aimeeerin Valadezell [facility] 09-24-2022 06:57-0500 Systolic blood pressure 118 mm[Hg] Aimee Walker [facility] 08-22-2022 10:31-0500 Blood Pressure Location Rahul Salinas [facility] 08-22-2022 10:31-0500 Body temperature 98.06 [degF] Rahul Salinas [facility] 12-09-2022 10:31-0500 Diastolic blood pressure 76 mm[Hg] [facility] 08-22-2022 10:31-0500 Heart rate 95 /min Rahul [facility] 08-22-2022 10:31-0500 SaO2% (BldA) [Mass fraction] 98 % [facility] 08-22-2022 10:31-0500 Systolic blood pressure 110 mm[Hg] [facility] 08-19-2022 09:45-0500 Diastolic blood pressure 69 mm[Hg] DO Jennie Durand Work Phone: [facility] 08-19-2022 09:45-0500 Heart rate 82 /min DO Jennie Durand Work Phone: [facility] 08-19-2022 09:45-0500 Respiratory rate 16 /min DO Jennie Durand Work Phone: [facility] 08-19-2022 09:45-0500 SaO2% (BldA) [Mass fraction] 95 % DO Jennie Durand Work Phone: [facility] 08-19-2022 09:45-0500 Systolic blood pressure 104 mm[Hg] DO Jennie Durand Work Phone: [facility] 08-19-2022 07:41-0500 Body height 170.18 cm DO Jennie Durand Work Phone: [facility] 08-19-2022 07:41-0500 Body weight 83.6 kg DO Jennie Durand Work Phone: [facility] 08-18-2022 17:26-0500 Body temperature 98.06 [degF] Alexis Shukla [facility] 08-18-2022 17:26-0500 Diastolic blood pressure 83 mm[Hg] Alexis Shukla [facility] 08-18-2022 17:26-0500 Heart rate 84 /min Alexis Shukla [facility] 08-18-2022 17:26-0500 Respiratory rate 18 /min Alexis Shukla [facility] 08-18-2022 17:26-0500 SaO2% (BldA) [Mass fraction] 98 % Alexis Shukla [facility] 08-18-2022 17:26-0500 Systolic blood pressure 120 mm[Hg] Alexis Shukla [facility] 08-12-2022 15:50-0500 Body temperature 97.9 [degF] DO Jennie Durand Work Phone: [facility] 08-12-2022 15:50-0500 Diastolic blood pressure 83 mm[Hg] DO Jennie Durand Work Phone: [facility] 08-12-2022 15:50-0500 Heart rate 64 /min DO Jennie Durand Work Phone: [facility] 08-12-2022 15:50-0500 Respiratory rate 20 /min DO Jennie Durand Work Phone: [facility] 08-12-2022 15:50-0500 SaO2% (BldA) [Mass fraction] 100 % DO Jennie Durand Work Phone: [facility] 08-12-2022 15:50-0500 Systolic blood pressure 136 mm[Hg] DO Jennie Durand Work Phone: [facility] 08-12-2022 11:00-0500 Body height 170.18 cm DO Jennie Durand Work Phone: [facility] 08-12-2022 06:00-0500 Body weight 88.1 kg DO Jennie Durand Work Phone: [facility] 08-08-2022 10:30-0500 Diastolic blood pressure 76 mm[Hg] Bakari Chester [facility] 08-08-2022 10:30-0500 Heart rate 58 /min Bakari Henrik [facility] 08-08-2022 10:30-0500 Mean blood pressure 88 mm[Hg] Bakari Henrik [facility] 08-08-2022 10:30-0500 Respiratory rate 20 /min Bakari Henrik [facility] 08-08-2022 10:30-0500 SaO2% (BldA) [Mass fraction] 100 % Bakari Henrik [facility] 08-08-2022 10:30-0500 Systolic blood pressure 112 mm[Hg] Bakari Chester [facility] 08-08-2022 10:00-0500 Diastolic blood pressure 86 mm[Hg] Bakari Henrik [facility] 08-08-2022 10:00-0500 Heart rate 64 /min Bakari Henrik [facility] 08-08-2022 10:00-0500 Mean blood pressure 97 mm[Hg] Bakari Henrik [facility] 08-08-2022 10:00-0500 Systolic blood pressure 120 mm[Hg] Bakari Henrik [facility] 08-08-2022 09:13-0500 gluc 98 mg/dL Bakari Henrik [facility] 08-08-2022 09:13-0500 gluc Bakari Chester [facility] 08-08-2022 09:06-0500 Body temperature 97.7 [degF] Bakari Chester [facility] 08-08-2022 09:06-0500 Diastolic blood pressure 87 mm[Hg] Bakari Henrik [facility] 08-08-2022 09:06-0500 Heart rate 79 /min Bakari Chester [facility] 08-08-2022 09:06-0500 Respiratory rate 18 /min Bakari Chester [facility] 08-08-2022 09:06-0500 SaO2% (BldA) [Mass fraction] 100 % Bakari Chester [facility] 08-08-2022 09:06-0500 Systolic blood pressure 127 mm[Hg] Bakari Chester [facility] 07-21-2022 10:50-0500 Blood Pressure Location Aimee Aaron [facility] 07-21-2022 10:50-0500 Body temperature 97.7 [degF] Aimee Walker [facility] 07-21-2022 10:50-0500 Diastolic blood pressure 72 mm[Hg] Aimee Valadezell [facility] 07-21-2022 10:50-0500 Heart rate 74 /min Aimee Walker [facility] 07-21-2022 10:50-0500 SaO2% (BldA) [Mass fraction] 99 % Aimee Valadezell [facility] 07-21-2022 10:50-0500 Systolic blood pressure 128 mm[Hg] Aimee Valadezell [facility] 05-13-2022 10:09-0400 Diastolic blood pressure 74 mm[Hg] Alexis Rivers [facility] [place] 05-13-2022 10:09-0400 Heart rate 68 /min Alexis Rivers [facility] [place] 05-13-2022 10:09-0400 Systolic blood pressure 112 mm[Hg] Alexis Rivers [facility] [place] 04-21-2022 09:39-0400 Blood Pressure Location Aimeeerin Valadezell [facility] 04-21-2022 09:39-0400 Body temperature 98.24 [degF] Aimee Walker [facility] 04-21-2022 09:39-0400 Diastolic blood pressure 72 mm[Hg] Aimee Walker [facility] 04-21-2022 09:39-0400 Heart rate 94 /min Aimeeerin Valadezell [facility] 04-21-2022 09:39-0400 SaO2% (BldA) [Mass fraction] 100 % Aimeeerin Valadezell [facility] 04-21-2022 09:39-0400 Systolic blood pressure 112 mm[Hg] Aimee Walker [facility] 04-20-2022 14:56-0400 Body temperature 98.24 [degF] [facility] 04-20-2022 14:56-0400 Diastolic blood pressure 72 mm[Hg] [facility] 04-20-2022 14:56-0400 Heart rate 69 /min [facility] 08-07-2022 14:56-0400 Respiratory rate 18 /min [facility] 04-20-2022 14:56-0400 SaO2% (BldA) [Mass fraction] 99 % [facility] 04-20-2022 14:56-0400 Systolic blood pressure 111 mm[Hg] [facility] 04-03-2022 19:17-0400 Hourly Rounding Kaylinn Dokken [facility] 04-03-2022 19:17-0400 Promise to Return Kaylinn Dokken [facility] 04-03-2022 19:15-0400 Diastolic blood pressure 71 mm[Hg] Kaylinn Dokken [facility] 04-03-2022 19:15-0400 Heart rate 63 /min Kaylinn Dokken [facility] 04-03-2022 19:15-0400 Mean blood pressure 82 mm[Hg] Kaylinn Dokken [facility] 04-03-2022 19:15-0400 Respiratory rate 18 /min Kaylinn Dokken [facility] 04-03-2022 19:15-0400 SaO2% (BldA) [Mass fraction] 100 % Kaylinn Dokken [facility] 04-03-2022 19:15-0400 Systolic blood pressure 105 mm[Hg] Kaylinn Dokken [facility] 04-03-2022 17:09-0400 Body temperature 98.06 [degF] Kaylinn Dokken [facility] 04-03-2022 17:09-0400 Diastolic blood pressure 83 mm[Hg] Kaylinn Dokken [facility] 04-03-2022 17:09-0400 Heart rate 87 /min Larry Gregorioen [facility] 04-03-2022 17:09-0400 Respiratory rate 18 /min Larry Gregorioen [facility] 04-03-2022 17:09-0400 SaO2% (BldA) [Mass fraction] 99 % Larry Gregorioen [facility] 04-03-2022 17:09-0400 Systolic blood pressure 119 mm[Hg] Larry Gregorioen [facility] 02-06-2022 09:06-0400 Blood Pressure Location Aimeeerin Valadezell [facility] 02-06-2022 09:06-0400 Body temperature 97.52 [degF] Aimee Walker [facility] 02-06-2022 09:06-0400 Diastolic blood pressure 72 mm[Hg] Aimee Walker [facility] 02-06-2022 09:06-0400 Heart rate 81 /min Aimee Walker [facility] 02-06-2022 09:06-0400 SaO2% (BldA) [Mass fraction] 100 % Aimee Walker [facility] 02-06-2022 09:06-0400 Systolic blood pressure 130 mm[Hg] Aimee Walker [facility] 01-29-2022 10:31-0400 Blood Pressure Location Aimee Walker [facility] 01-29-2022 10:31-0400 Body temperature 97.16 [degF] Aimee Valadezell [facility] 01-29-2022 10:31-0400 Diastolic blood pressure 76 mm[Hg] Aimee Valadezell [facility] 01-29-2022 10:31-0400 Heart rate 94 /min Aimee Valadezell [facility] 01-29-2022 10:31-0400 SaO2% (BldA) [Mass fraction] 98 % Aimee Walker [facility] 01-29-2022 10:31-0400 Systolic blood pressure 118 mm[Hg] Aimee Valadezell [facility] 02-01-2021 07:15-0400 Body temperature 97.7 [degF] Berry Lawson MD Work Phone: [employer] Work Phone: 02-01-2021 07:15-0400 Diastolic blood pressure 63 mm[Hg] Berry Lawson MD Work Phone: [employer] Work Phone: 02-01-2021 07:15-0400 Heart rate 82 /min Berry Lawson MD Work Phone: [employer] Work Phone: 02-01-2021 07:15-0400 Respiratory rate 18 /min Berry Lawson MD Work Phone: [employer] Work Phone: 02-01-2021 07:15-0400 SaO2% (BldA) [Mass fraction] 98 % Berry Lawson MD Work Phone: [employer] Work Phone: 02-01-2021 07:15-0400 Systolic blood pressure 110 mm[Hg] Berry Lawson MD Work Phone: [employer] Work Phone: 01-30-2021 16:54-0400 Body height 170.2 cm Berry Lawson MD Work Phone: [employer] Work Phone: 01-30-2021 16:54-0400 Body mass index (BMI) [Ratio] 38.53 kg/m2 Berry Lawson MD Work Phone: [employer] Work Phone: 01-30-2021 16:54-0400 Body weight 111.58 kg Berry Lawson MD Work Phone: [employer] Work Phone: 01-30-2021 14:27-0400 Diastolic blood pressure 66 mm[Hg] David Nash MD Work Phone: [employer] Work Phone: 01-30-2021 14:27-0400 Heart rate 93 /min David Nash MD Work Phone: [employer] Work Phone: 01-30-2021 14:27-0400 Respiratory rate 16 /min David Nash MD Work Phone: [employer] Work Phone: 01-30-2021 14:27-0400 SaO2% (BldA) [Mass fraction] 98 % David Nash MD Work Phone: [employer] Work Phone: 01-30-2021 14:27-0400 Systolic blood pressure 107 mm[Hg] David Nash MD Work Phone: [employer] Work Phone: 01-30-2021 09:51-0400 Body temperature 97.2 [degF] David Nash MD Work Phone: [employer] Work Phone: 01-26-2021 09:00-0400 Body temperature 98.2 [degF] Gamaliel Vickers DO Work Phone: [employer] Phone: 01-26-2021 09:00-0400 Diastolic blood pressure 77 mm[Hg] Gamaliel Vickers DO Work Phone: [employer] Work Phone: 01-26-2021 09:00-0400 Heart rate 90 /min Gamaliel Vickers [employer] Work Phone: [employer] Work Phone: 01-26-2021 09:00-0400 Respiratory rate 16 /min Gamaliel Vickers DO Work Phone: [employer] Work Phone: 01-26-2021 09:00-0400 SaO2% (BldA) [Mass fraction] 96 % Gamaliel Vickers DO Work Phone: [employer] Work Phone: 01-26-2021 09:00-0400 Systolic blood pressure 111 mm[Hg] Gamalielkemar Vickers DO Work Phone: [employer] Phone: 01-08-2021 07:35-0400 Body temperature 97.81 [degF] Gamalielkemar Vickers [employer] Work Phone: [employer] Work Phone: 01-08-2021 07:35-0400 SaO2% (BldA) [Mass fraction] 97 % Gamaliel Vickers [employer] Work Phone: [employer] Phone: 01-08-2021 07:29-0400 Diastolic blood pressure 77 mm[Hg] Gamaliel Vickers [employer] Work Phone: [employer] Phone: 01-08-2021 07:29-0400 Heart rate 87 /min Gamaliel Vickers [employer] Work Phone: [employer] Phone: 01-08-2021 07:29-0400 Respiratory rate 18 /min Gamaliel Vickers [employer] Phone: [employer] Phone: 01-08-2021 07:29-0400 Systolic blood pressure 123 mm[Hg] Gamaliel Vickers [employer] Work Phone: [employer] Phone: 01-07-2021 06:29-0400 Body height 170.2 cm Gamaliel Vickers [employer] Work Phone: [employer] Phone: 01-07-2021 06:29-0400 Body mass index (BMI) [Ratio] 40.68 kg/m2 Gamaliel Vickers [employer] Work Phone: [employer] Phone: 01-07-2021 06:29-0400 Body weight 117.8 kg Gamaliel Vickers [employer] Work Phone: [employer] Phone: 12-24-2020 10:33-0400 Body height 170.2 cm Stvz 2 [employer] Phone: 12-24-2020 10:33-0400 Body mass index (BMI) [Ratio] 42.76 kg/m2 Stv[facility] 2 [employer] Phone: 12-24-2020 10:33-0400 Body temperature 97.7 [degF] Stvz 2 [employer] Phone: 12-24-2020 10:33-0400 Body weight 123.83 kg Stvz 2 [employer] Phone: 12-24-2020 10:33-0400 Diastolic blood pressure 76 mm[Hg] Stvz 2 [employer] Phone: 12-24-2020 10:33-0400 Heart rate 71 /min Stvz 2 [employer] Phone: 12-24-2020 10:33-0400 Respiratory rate 18 /min Stvz 2 [employer] Phone: 12-24-2020 10:33-0400 SaO2% (BldA) [Mass fraction] 98 % St [address] [employer] Phone: 12-24-2020 10:33-0400 Systolic blood pressure 115 mm[Hg] Stvz 2 [employer] Phone: 09-28-2020 08:40-0500 BP Diastolic 75 mm[Hg] Gamaliel Vickers [employer] [place] 09-28-2020 08:40-0500 BP Systolic 117 mm[Hg] Gamaliel Vickers [employer] 09-28-2020 08:40-0500 Pulse (Heart Rate) 84 /min Gamaliel Vickers [employer] [facility], [place] 09-28-2020 08:40-0500 Pulse Oximetry 100 % Gamaliel Vickers [employer] 09-28-2020 08:25-0500 Body Temperature 96.8 [degF] Gamaliel Vickers [employer] [place] 09-28-2020 08:25-0500 Respiratory Rate 23 /min Gamaliel [facility]ickers [facility] [place] 09-28-2020 07:07-0500 BMI (Body Mass Index) 45.66 kg/m2 Gamaliel [facility] 09-28-2020 07:07-0500 Body weight 132.22 kg Gamaliel [facility], [place] 09-28-2020 07:07-0500 Height 170.2 cm Gamaliel [facility] Encounters Encounter Date Encounter Type Care Provider Facility Start: 03-13-2025 ambulatory Jak W [place]ide Facility:[facility] Start: 03-09-2025 End: 03-09-2025 ambulatory Efrem Victor Facility:[facility] Start: 03-09-2025 End: 03-09-2025 Patient encounter procedure Babar Mayers [facility] Start: 03-03-2025 End: 03-03-2025 ambulatory Babar Mayers Facility:[facility] Start: 03-03-2025 End: 03-03-2025 Pain Management Babar Mayers [facility] Start: 03-02-2025 End: 03-02-2025 ambulatory MARII RICK Facility:[facility] Start: 03-02-2025 End: 03-02-2025 Patient encounter procedure MARII RICK [facility] Start: 02-17-2025 End: 02-17-2025 Emergency department patient visit Bryan Avila [facility] Start: 02-16-2025 End: 02-16-2025 ambulatory Jak W Riverside Facility:[facility] Start: 02-16-2025 End: 02-16-2025 Patient encounter procedure Jak W Riverside [facility] Start: 02-16-2025 End: 02-16-2025 ambulatory MOLLY WAGNER Facility:[facility] Start: 02-16-2025 End: 02-16-2025 Patient encounter procedure Jak W Riverside [facility] Start: 02-11-2025 End: 02-13-2025 Refill Tevin Carson DO Work Phone: [facility] Comment on above: Refill Request Start: 02-09-2025 End: 02-09-2025 ambulatory Fernandez Daniels Facility:[facility] Start: 02-09-2025 End: 02-09-2025 Patient encounter procedure MOLLY WAGNER [facility] Start: 02-03-2025 End: 02-18-2025 Pre-admission assessment Babar Mayers [facility] Start: 02-03-2025 End: 02-03-2025 ambulatory MOLLY WAGNER Facility:[facility] Start: 01-27-2025 End: 01-27-2025 ambulatory Orlando Kate Facility:[facility] Start: 01-27-2025 End: 01-27-2025 Patient encounter procedure Orlando Kate [facility] Start: 01-24-2025 End: 01-24-2025 ambulatory Babar Mayers Facility:[facility] Start: 01-24-2025 End: 01-24-2025 Pain Management Babar Mayers [facility] Start: 01-19-2025 End: 01-20-2025 Pre-admission assessment Orlando Kate [facility] Start: 01-13-2025 End: 01-13-2025 ambulatory Orlando Kate Facility:[facility] Start: 01-13-2025 End: 01-13-2025 Patient encounter procedure Orlando Kate [facility] Start: 12-16-2024 End: 12-16-2024 Patient encounter procedure [facility] [address] [place] Work Phone: Start: 12-16-2024 End: 12-16-2024 ambulatory NON STAFF [facility] Work Phone: Start: 12-14-2024 End: 12-15-2024 ambulatory David B Rhiew Facility:[facility] Start: 12-14-2024 End: 12-15-2024 Patient encounter procedure David B Rhiew [facility] Start: 12-12-2024 End: 12-12-2024 Patient encounter procedure [facility]-Lab [address] Work Phone: Start: 12-12-2024 End: 12-12-2024 ambulatory NON STAFF [facility] Work Phone: Start: 11-29-2024 End: 11-30-2024 ambulatory Jennie Durand Facility:[facility] Start: 11-28-2024 End: 11-28-2024 ambulatory Babar Mayers Facility:[facility] Start: 11-28-2024 End: 11-28-2024 Pain Management Babar Mayers [facility] Start: 11-18-2024 End: 11-18-2024 ambulatory KURT BALBUENA Facility:[facility] Start: 11-15-2024 End: 11-15-2024 ambulatory Orlando Kate Facility:[facility] Start: 11-15-2024 End: 11-15-2024 Patient encounter procedure Orlando Kate [facility] Start: 11-11-2024 End: 11-11-2024 ambulatory David Vaughnw Facility:[facility] Start: 11-11-2024 End: 11-11-2024 Patient encounter procedure David B Rhiew [facility] Start: 11-02-2024 End: 11-02-2024 Patient encounter procedure Jennie Durand [facility] Start: 11-02-2024 End: 01-11-2025 ambulatory Jennie Durand Facility:[facility] Start: 11-01-2024 End: 11-11-2024 Pre-admission assessment Jennie Durand [facility] Start: 10-18-2024 End: 10-18-2024 Emergency department patient visit Jose Croreia [facility] Start: 10-17-2024 End: 10-17-2024 [facility] [place] Start: 10-17-2024 End: 10-17-2024 Patient encounter procedure [facility] [place] Comment on above: Population Health Na vigation Outreach ([facility] [place] Start: 10-14-2024 End: 10-14-2024 ambulatory KURT A ESHA Facility:[facility] [place] [facility] Start: 09-30-2024 End: 09-30-2024 ambulatory KURT A ESHA [facility] [place] [facility] Start: 09-27-2024 End: 09-27-2024 Bamboo flowsheet Christopher Suzie DO Work Phone: [facility] Start: 09-27-2024 End: 09-27-2024 Bamboo flowsheet Christopher Suzie DO Work Phone: [facility] Start: 09-27-2024 End: 09-27-2024 Patient encounter procedure Corby Larsen DO Work Phone: [facility] Comment on above: Myalgia Start: 09-27-2024 End: 09-27-2024 ambulatory CORBY LARSEN Not Available Start: 09-27-2024 End: 09-27-2024 ambulatory KURT A ESHA [facility] [place] [facility] Start: 09-26-2024 End: 09-26-2024 ambulatory KURT BALBUENA Facility:[facility] Start: 09-21-2024 End: 09-21-2024 Clinisync Result Encounter Corby Larsen DO Work Phone: [facility] External Department Unsolicited Start: 09-21-2024 End: 09-21-2024 Clinisync Result Encounter Corby Larsen DO Work Phone: [facility] External Department Unsolicited Start: 09-21-2024 End: 09-21-2024 Office outpatient visit 25 minutes Corby Larsen DO Work Phone: [facility] Comment on above: Ataxia (Primary Dx); Myalgia Start: 09-21-2024 End: 09-21-2024 ambulatory CORBY LARSEN Not Available Start: 09-20-2024 End: 09-20-2024 Lab Drop off KURT Fallon ESHA [facility] Start: 09-20-2024 End: 09-20-2024 ambulatory KURT Lehman ESHA Facility:[facility] Start: 09-16-2024 ambulatory KURT BALBUENA Facility :[facility] Start: 09-15-2024 End: 09-15-2024 Emergency department patient visit [facility] Work Phone: Start: 09-15-2024 End: 09-15-2024 ambulatory TIFFANIE MARADIAGA Facility:[facility] Start: 09-13-2024 End: 09-13-2024 Subsequent hospital visit by physician Clarita Smith [facility] Comment on above: Angina pectoris; Shortness of breath; Palpitations; Family history of ischemic heart disease; Primary hypertension Start: 09-13-2024 End: 09-13-2024 ambulatory [facility] Start: 09-04-2024 End: 09-05-2024 ambulatory Tevin Carson DO Work Phone: Family Medicine Comment on above: Blood work Start: 08-25-2024 End: 08-25-2024 ambulatory Mray Jo Trinidad RN Work Phone: [employer] Start: 08-25-2024 End: 08-25-2024 Patient encounter procedure Mary Jo Trinidad RN Work Phone: [employer] Comment on above: CARMELINA LAN RN ( ED Utilization Review per request of payor/) Start: 08-18-2024 End: 08-18-2024 Patient encounter procedure TIFFANIE MARADIAGA [facility] Start: 08-17-2024 End: 08-17-2024 Refill Tevin Carson DO Work Phone: Family Medicine Comment on above: Med Change Request Start: 08-08-2024 End: 08-08-2024 Office outpatient new 45 minutes Aleah Howard MD Work Phone: [facility] Comment on above: Angina pectoris; Shortness of breath; Palpitations; Family history of ischemic heart disease; Primary hypertension; Current smoker; BMI 29.0-29.9,adult Start: 08-08-2024 End: 08-08-2024 ambulatory [facility] Start: 07-26-2024 End: 07-26-2024 ambulatory TEVIN CARSON Facility:[facility] Start: 07-25-2024 End: 07-25-2024 ambulatory TEVIN HENRIQUEZE Facility:[facility] Start: 07-25-2024 End: 07-25-2024 Office outpatient [...] above: Results; Appointment Start: 07-11-2024 End: 07-11-2024 ambulatory ABI ASIF Facility:[facility] Start: 07-11-2024 End: 07-11-2024 Subsequent hospital visit by physician Procedure Mammo [facility] Comment on above: Abnormal mammogram o f left breast [R92.8] Start: 07-04-2024 End: 07-04-2024 ambulatory TEVIN CARSON Facility:[facility] Start: 07-04-2024 End: 07-04-2024 Patient encounter procedure Fatuma Tyler APRN.DESIGN TRANSFERRER Work Phone: [facility] Comment on above: Abnormal mammogram ( Primary Dx); Mass of upper outer quadrant of left breast; Fibrocystic breast changes of both breasts; Mastodynia; Inversion of left nipple; Bloody discharge from left nipple; Nipple discharge Start: 07-04-2024 End: 07-04-2024 Subsequent hospital visit by physician [facility] Work Phone: Mammography Comment on above: Mass of upper outer quadrant of left breast [N63.21] Start: 07-03-2024 Non-patient / Non-visit [facility] Work Phone: Start: 07-01-2024 End: 07-01-2024 ambulatory TEVIN CARSON Facility:[facility] Start: 07-01-2024 End: 07-01-2024 Office outpatient visit 25 minutes Tevin Carson DO Work Phone: Family Medicine Comment on above: Chest pain, unspecif ied type (Primary Dx); Palpitations; Bipolar affective disorder in remission (HCC); History of substance abuse (HCC); Borderline personality disorder (HCC); Serum calcium elevated Start: 06-30-2024 End: 07-01-2024 Telephone encounter Fatuma Tyler APRN.DESIGN TRANSFERRER Work Phone: [facility] Comment on above: Appointment Start: 05-30-2024 End: 05-30-2024 ambulatory Lenora Yee RN Work Phone: [employer] Comment on above: CARMELINA LAN RN ( ED Utilization review per request of payer) Start: 04-26-2024 ambulatory Elia mcdowell DO Work Phone: Family Medicine Start: 03-08-2024 End: 03-08-2024 Emergency department patient visit Alexis Shukla [facility] Start: 03-08-2024 End: 03-08-2024 Subsequent hospital visit by physician Mri [facility] (Lg Bore/1.5t) Radiology MRI Comment on above: 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 ] Start: 03-08-2024 End: 03-08-2024 ambulatory LEONELA AGUIRRE Facility:[facility] Start: 03-08-2024 End: 03-08-2024 Patient encounter [...] Work Phone: [facility] Work Phone: Start: 02-25-2024 End: 02-25-2024 ambulatory ELIA BAIRES Facility:[facility] Start: 01-13-2024 End: 01-13-2024 ambulatory [facility] Start: 01-05-2024 Telephone encounter Elia rob DO Work Phone: Family Medicine Start: 01-04-2024 End: 01-04-2024 ambulatory ELIA BAIRES Facility:[facility] Start: 01-04-2024 End: 01-04-2024 Patient encounter procedure Elia Baires DO Work Phone: Family Medicine Comment on above: Panic disorder (Prim masoud Dx); Borderline personality disorder (HCC); Bipolar affective disorder in remission (HCC); Chronic alcoholism in remission (HCC); Routine health maintenance Start: 01-04-2024 End: 01-04-2024 Patient encounter status Elia Baires DO Work Phone: [facility] Start: 12-31-2023 End: 12-31-2023 Emergency department patient visit DO Jennie Durand Work Phone: [facility]Emer[facility] Work Phone: Start: 12-25-2023 ambulatory SELF REFERRAL Facility: [facility] Start: 12-24-2023 End: 12-24-2023 Emergency department patient visit DO Jennie Ladarius Work Phone: [facility] Work Phone: Start: 2023 ambulatory Otto Larsen Facility:[facility] Start: 12-10-2023 End: 12-10-2023 Emergency department patient visit DO Jennie Durand Work Phone: [facility] Work Phone: Start: 12-09-2023 End: 12-09-2023 ambulatory Jennie Durand Facility:[facility] Start: 12-09-2023 End: 12-09-2023 Patient encounter procedure Jennie Durand [facility] Start: 10-23-2023 End: 10-26-2023 [facility] Start: 10-12-2023 End: 10-15-2023 ambulatory [facility] Start: 09-18-2023 End: 09-18-2023 Subsequent hospital visit by physician Gamaliel Vickers DO Work Phone: [facility] Start: 08-31-2023 End: 09-01-2023 ambulatory HEYDINirav IRVINURUTH Facility:[facility] Start: 08-28-2023 End: 08-28-2023 ambulatory Imad Asaad Other [employer] Other Start: 08-28-2023 Telephone encounter Imad Asaad [employer] Start: 08-18-2023 End: 08-21-2023 [facility] Start: 08-15-2023 End: 08-15-2023 Emergency department patient visit DO Jennie Durand Work Phone: [facility] Work Phone: Start: 08-14-2023 End: 08-14-2023 Emergency department patient visit DO Jennie Durand Work Phone: [facility] Work Phone: Start: 08-13-2023 End: 08-13-2023 ambulatory Imad Asaad Other [employer] Other Start: 08-13-2023 Office outpatient ne w 45 minutes Imad Asaad [facility] Start: 08-12-2023 End: 08-15-2023 ambulatory [facility] Start: 07-08-2023 End: 07-08-2023 ambulatory Ania Javed Other [employer] Other Start: 07-08-2023 Office outpatient ne w 20 minutes Ania Javed [facility] Start: 07-03-2023 End: 07-03-2023 Emergency department patient visit DO Jennie Durand Work Phone: [facility]Emer[facility] Work Phone: Start: 07-02-2023 End: 07-02-2023 Emergency department patient visit Bakari Chester [facility] Start: 06-10-2023 End: 06-10-2023 [facility] Start: 06-09-2023 End: 06-09-2023 Emergency department patient visit Alexis Shukla Facility:[facility] Start: 06-03-2023 Refill Eileen Alvarez MD Work Phone: Neurology Comment on above: Refill Request Start: 03-19-2023 End: 03-19-2023 ambulatory FENCE ERECTOR [employer]PERVISOR GANESH CORDERO Facility:[facility] Start: 03-19-2023 End: 03-19-2023 Patient encounter procedure GANESH CORDERO [facility] Start: 01-29-2023 End: 01-29-2023 Subsequent hospital visit by physician Marixa [facility] Vicky (1.5t) Work Phone: Radiology Comment on above: 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] Start: 01-15-2023 End: 01-15-2023 Emergency department patient visit Bakari Chester [facility] Start: 01-02-2023 End: 01-02-2023 Patient encounter procedure Nakia Mcqueen [facility] Start: 12-12-2022 Refill Eileen Alvarez MD Work Phone: Neurology Comment on above: Refill Request Start: 12-05-2022 End: 12-05-2022 Admission to same day surgery center Gal Das [facility] Start: 11-21-2022 End: 11-21-2022 Patient encounter procedure Gal Das [facility] Start: 11-20-2022 End: 03-09-2023 ambulatory EILEEN ALVAREZ Facility:[facility] Start: 11-20-2022 End: 11-20-2022 Patient encounter procedure Eileen Alvarez MD Work Phone: Neurology Comment on above: Idiopathic intracran ial hypertension (Primary Dx); Depression, unspecified depression type; Primary hypertension; Hx of gastric bypass; H/O foot surgery Start: 11-03-2022 End: 11-03-2022 Patient encounter procedure Nakia Mcqueen [facility] Start: 10-30-2022 End: 10-30-2022 ambulatory STEFANIE SINGH . Facility: Start: 10-23-2022 End: 10-23-2022 Lab Drop off Gal Das [facility] Start: 10-14-2022 End: 10-14-2022 Patient encounter procedure Rita Loja [facility] Start: 09-24-2022 End: 09-24-2022 Patient encounter procedure Aimee Walker [facility] Start: 08-22-2022 End: 08-22-2022 Patient encounter procedure Rahul Salinas [facility] Start: 08-19-2022 End: 08-19-2022 ambulatory DO Jennie Durand Work Phone: [facility] Work Phone: Start: 08-19-2022 End: 08-19-2022 Patient encounter procedure DO Jennie Durand Work Phone: [facility]-XRay [facility] Start: 08-18-2022 End: 08-18-2022 ambulatory PA JACKIE MARTINEZ . Facility:[facility] Start: 08-18-2022 End: 08-18-2022 Emergency department patient visit Alexis Shukla [facility] Start: 08-16-2022 End: 08-16-[address] NEW DREW . Facility:[facility] Start: 08-12-2022 ambulatory Facility:[id number] Start: 08-11-2022 End: 08-12-2022 Evaluation and management of inpatient DO Jennie Durand Work Phone: [facility] Start: 08-11-2022 End: 08-12-2022 observation encounter DO Jennie Durand Work Phone: [facility] Work Phone: Start: 08-11-2022 End: 08-11-[address] WEI PHAM Facility:[facility] Start: 08-08-2022 End: 08-08-2022 Emergency department patient visit Bakari Chester [facility] Start: 07-21-2022 End: 07-21-2022 Patient encounter procedure Aimee Walker [facility] Start: 07-19-2022 End: 07-19-[address] DOCTOR CAMARILLO Facility:[facility] Start: 07-18-2022 Telephone encounter Eduin Leiva) [facility] Comment on above: Appointment Start: 06-12-2022 End: 06-12-[address] CAROLYNE RALPH Facility:[facility] Start: 06-10-2022 End: 06-10-2022 Patient encounter procedure Alexis Rivers [facility] Start: 05-30-2022 End: 05-30-2022 ambulatory GABRIELA CAMARGO Facility:[facility] Start: 05-13-2022 End: 05-13-2022 Patient encounter procedure Alexis Rivers [facility] [place] Start: 04-22-2022 End: 04-22-2022 Patient encounter procedure Aimee Walker [facility] Start: 04-21-2022 End: 04-21-2022 Patient encounter procedure Aimee Walker [facility] Start: 04-20-2022 End: 04-20-2022 Emergency department patient visit Jose Correia [facility] Start: 04-07-2022 End: 04-07-[address] LADY SANCHEZ . Facility:[facility] Start: 04-03-2022 End: 04-03-2022 Emergency department patient visit Larry Baker [facility] Start: 04-03-2022 End: 04-03-2022 [facility] Start: 02-12-2022 End: 02-12-2022 Patient encounter procedure Amee Gonzalez PA-C Work Phone: Otolaryngology Comment on above: Burning tongue (Prim masoud Dx); Irritation of oral cavity Start: 02-08-2022 End: 02-08-2022 ambulatory STEFANIE SINGH . Facility:[facility] Start: 02-06-2022 End: 02-06-2022 Patient encounter procedure Aimee Walker [facility] Start: 01-30-2022 End: 01-30-2022 ambulatory GABRIELA CAMARGO Facility:H1 Start: 01-29-2022 End: 01-29-2022 Patient encounter procedure Aimee Walker [facility] Start: 01-27-2022 ambulatory Eduin Mckee MD Work Phone: Plastic Surgery Comment on above: questions Start: 01-10-2022 Telephone encounter Eduin marx MD Work Phone: Plastic Surgery Comment on above: Patient Question; Ap pointment Start: 01-09-2022 End: 01-09-2022 Patient encounter procedure Aimee Walker [facility] Start: 12-27-2021 Telephone encounter Eduin marx MD Work Phone: Plastic Surgery Comment on above: Orders Scheduling Start: 11-16-2021 End: 11-17-[address] WILEY HELM Facility: Start: 02-04-2021 End: 02-06-2021 Subsequent hospital visit by physician [facility] Cat Scan Room [facility] CT Scan Comment on above: Omental infarction ( HCC) Start: 01-30-2021 End: 02-01-2021 Evaluation and management of inpatient Berry Lawson MD Work Phone: [facility] Ortho/Med Surg Comment on above: Surgery, elective (P rimary Dx); Omental infarction (HCC) Start: 01-30-2021 End: 01-30-2021 Emergency department patient visit David Nash MD Work Phone: [facility] ED Comment on above: Generalized abdomina l pain (Primary Dx) Start: 01-26-2021 End: 01-26-2021 Subsequent hospital visit by physician Gamaliel Vickers DO Work Phone: [facility] Med Surg Comment on above: Dehydration Start: 01-07-2021 End: 01-08-2021 Evaluation and management of inpatient Gamaliel Vickers DO Work Phone: [facility] Ortho/Med Surg Comment on above: Post-op pain (Primar y Dx) Start: 01-03-2021 End: 01-04-2021 [facility] Start: 01-03-2021 End: 01-03-2021 Patient encounter status St[facility] Schedule EDGADRO Mcclendon Scre ening Start: 01-03-2021 End: 01-03-2021 Subsequent hospital visit by physician Edgardo Mcclendon Screening Schedule EDGARDO Covid Screening Comment on above: Preop testing (Prima ry Dx) Start: 12-24-2020 End: 12-28-2020 Subsequent hospital visit by physician Christiane Salinas Xr [facility] Radiology Comment on above: Arrived Start: 11-01-2020 End: 11-03-2020 Subsequent hospital visit by physician Chaitanya Jett Radiologist [facility] Radiology Comment on above: Gastroesophageal [...] Start: 11-01-2015 Patient encounter procedure LINDY COTE Facility:[facility] Procedures Date Procedure Procedure Detail Performing Clinician Start: 03-03-2025 Injection of facet j oint using fluoroscopic guidance Babar Mayers Comment on above: L4-S1 Start: 01-24-2025 Injection of facet j oint using fluoroscopic guidance Orlando Kate Start: 12-16-2024 MRI of head Start: 11-28-2024 Injection of nerve r oot of lumbar spine using fluoroscopic guidance Orlando Kate Comment on above: left L5/S1 TFESI Start: 09-27-2024 End: 09-27-2024 Needle emg ea extremty w/paraspinl area complete Corby Larsen DO Work Phone: Start: 09-21-2024 ALL MYOGLOBIN Ganga Larsen DO Work Phone: Start: 09-21-2024 ALL THYROID STIM HORMONE Corby Larsen DO Work Phone: Start: 09-15-2024 CT angiography of head Start: 09-15-2024 CT angiography of ne ck vessels Start: 09-15-2024 CT of head without contrast Start: 09-15-2024 Plain chest X-ray Start: 09-13-2024 Echo tthrc r-t 2d w/wom-mode compl spec&colr d Aleah Howard MD Work Phone: Start: 08-08-2024 Ecg routine ecg w/le ast 12 lds w/i&r Aleah Howard MD Work Phone: Start: 07-11-2024 Digital breast tomosynthesis unilateral Abi Asif MD Work Phone: Start: 07-11-2024 End: 07-11-2024 Bx breast w/device 1st lesion ultrasound guid Abi Asif MD Work [...] Start: 12-10-2023 Plain chest X-ray DO Azeb Durand Work Phone: Start: 08-15-2023 Computed tomography of abdomen and pelvis with contrast DO Jennie Durand Work Phone: Start: 01-29-2023 Mra head w/o & w/contrast material Eileen Alvarez MD Work Phone: Start: 12-05-2022 Hysterectomy Gal Ochoa en Start: 08-12-2022 MRI of head DO Jennie carlos Work Phone: Start: 08-12-2022 MRI venography DO Jennie xie Work Phone: Start: 02-04-2021 Ct abdomen & pelvis w/contrast material Gamaliel Vickers DO Work Phone: Start: 02-01-2021 BASIC METABOLIC PANE L W/ REFLEX TO MG FOR LOW K Riuz Wisam DO Work Phone: Start: 02-01-2021 Blood [...] MD Work Phone: Start: 01-08-2021 Radiologic exam esophagus single contrast study Gamaliel Vickers DO Work Phone: Start: 01-08-2021 Basic metabolic pane l calcium total Gamaliel Vickers DO Work Phone: Start: 01-07-2021 Basic metabolic pane l calcium total Gamaliel Vickers [employer] Work Phone: Start: 01-07-2021 End: 01-07-2021 Laps gstr rstcv px w/byp tian-en-y limb <150 cm Gamaliel Vickers [employer] Work Phone: Start: 01-07-2021 Urine test visual color cmprsn meths Gamaliel Vickers [employer] Work Phone: Start: 12-24-2020 Assay of nicotine Enmanuel Parr [employer] Work Phone: Start: 12-24-2020 Basic metabolic pane l calcium total Gamaliel Vickers [employer] Work Phone: Start: 12-24-2020 Radiologic exam ches t 2 views Gamaliel Vickers Work Phone: Start: 12-24-2020 Ecg routine ecg w/le ast 12 lds trcg only w/o i&r Gamaliel Vickers [employer] Work Phone: Start: 12-24-2020 EKG REPORT Hpf Scanni ng Start: 11-01-2020 Radex upper gi w/wo glucagon/delay imges w/o kub Gamaliel Vickers Work Phone: Start: 09-24-2020 COVID-19 Obdulio Nj nathan Work Phone: Start: 02-16-2020 Endoscopic plantar [...] value) Aimee Walker Comment on above: reconstruction ft (qualifier value) Jennie carlos H/O: tubal ligation Aimee Walker Investigation of transfusion reaction DO Jennie Durand Work Phone: Lumbar puncture to l ower intracranial pressure Rahul Salinas Plan of Treatment Date Care Activity Detail Author Start: 2038 Zoster Vaccines (1 of 2) Zoster Vaccines (1 of 2) [facility] Start: 02-24-2027 Diabetes mellitus screening Diabetes Screening [facility] Start: 07-25-2025 Annual PCP Team Chronic Disease Visit Annual PCP Team Chronic Disease Visit [facility] Start: 07-25-2025 BP Controlled (<130/80) BP Controlled (<130/80) [facility] in Start: 07-01-2025 Annual PCP Team Chronic Disease Visit Annual PCP Team Chronic Disease Visit [facility] Start: 07-01-2025 BP Controlled (<130/80) BP Controlled (<130/80) [facility] in Start: 05-15-2025 Influenza vaccination Influenza Vaccine (Season Ended) [facility] Start: 03-08-2025 Annual PCP Team Chronic Disease Visit Annual PCP Team Chronic Disease Visit [facility] Start: 03-08-2025 BP Controlled (<130/80) BP Controlled (<130/80) [facility] in Start: 03-08-2025 Urine microalbumin profile DTaP,Tdap,Td Vaccine (1 - Tdap) [facility] Comment on above: Postponed from 12/18/2007 (Declined at t his time) Start: 01-03-2025 Annual PCP Team Chronic Disease Visit Annual PCP Team Chronic Disease Visit [facility] Start: 12-12-2024 Aldolase measurement [facility] Start: 12-12-2024 Antibody to Scl-70 measurement [facility] Start: 12-12-2024 Hemolytic complement CH50 level [facility] Start: 12-12-2024 IOS PROGRAMMER antibody measurement [facility] Start: 12-12-2024 [facility] Start: 10-20-2024 End: 10-20-2024 Patient encounter procedure 10/20/2024 8:40 AM EST Office Visit [facility]I SAMUEL[facility] [address] [place] [phone] Babatunde Mague, LEONOR [address] [place] [address] [facility] Start: 10-04-2024 End: 10-04-2024 Patient encounter procedure 10/04/2024 12:40 PM EST Appointment Radiology MRI [address] [place] [address] MRI BREAST WO/W IVCON Radiology MRI Comment on above: MRI BREAST WO/W IVCON Start: 09-27-2024 End: 09-27-2024 Patient encounter procedure RUTH O[facility] Comment on above: Arrived Start: 09-21-2024 End: 09-21-2025 EMG 2 Extremities EMG 2 Extremities Neurology Routine Myalgia Expected: 09/21/2024, Expires: 09/21/2025 [facility] Work Phone: Comment on above: Expected: 09/21/2024, Expires: Start: 09-21-2024 End: 09-21-2025 MR Brain WO and W contrast IV MR brain w and wo contrast routine Imaging Routine Ataxia Expected: 09/21/2024, Expires: 09/21/2025 [facility] Healthcare Comment on above: Expected: 09/21/2024, Expires: Start: 09-21-2024 End: 09-21-2025 Myoglobin, serum Myoglobin, serum Lab Routine Myalgia Expected: 09/21/2024 (Approximate), Expires: 09/21/2025 [facility] Comment on above: Expected: 09/21/2024 (Approximate), Expi res: 09/21/2025 Start: 09-21-2024 End: 09-21-2025 Nuclear Ab [Titer] in Serum by Immunofluorescence CYNDI Lab Routine Myalgia Expected: 09/21/2024 (Approximate), Expires: 09/21/2025 [facility] Comment on above: Expected: 09/21/2024 (Approximate), Expi res: 09/21/2025 Start: 09-21-2024 End: 09-21-2025 Thyrotropin [Units/volume] in Serum or Plasma TSH Lab Routine Myalgia Expected: 09/21/2024 (Approximate), Expires: 09/21/2025 [facility] Healthcare Comment on above: Expected: 09/21/2024 (Approximate), Expi res: 09/21/2025 Start: 09-19-2024 End: 09-19-2024 Patient encounter procedure 09/19/2024 3:00 PM EST Office Visit [facility] [address] [facility] [address] [place] [address] Aleah Howard MD [address] [facility] [address] [place], [place] [id number] [facility] Start: 09-13-2024 End: 09-13-2024 [facility] Comment on above: ER Follow up Start: 08-24-2024 End: 08-24-2024 ambulatory 08/24/2024 11:20 AM EST [facility] [address] [place] [address] [place] [address] [place], [place] [id number] Return in about 4 weeks (around 08/22/2024) Family Medicine Comment on above: Return in about 4 weeks (around ) Start: 08-23-2024 End: 08-23-2024 Patient encounter procedure Azra Walls Start: 08-08-2024 End: 08-08-2025 NM Heart Perfusion W stress and W radionuclide IV Nuclear Stress Test Cardiac Nuclear Medicine Routine Angina pectoris Shortness of breath Palpitations Family history of ischemic heart disease Primary hypertension Expected: 08/08/2024 (Approximate), Expires: 08/08/2025 [facility] Service Area Work Phone: Comment on above: Expected: 08/08/2024 (Approximate), Expi res: 08/08/2025 Start: 08-08-2024 End: 08-08-2026 US Heart Transthoracic Transthoracic Echo Complete Echocardiography Routine Angina pectoris Shortness of breath Palpitations Family history of ischemic heart disease Primary hypertension Expected: 08/08/2024 (Approximate), Expires: 08/08/2026 [facility] Work Phone: Comment on above: Expected: 08/08/2024 (Approximate), Expi res: 08/08/2026 Start: 08-05-2024 End: 08-05-2024 ambulatory [facility] Comment on above: Fhx of pancreatic cancer, Phx of pancrea tic mass Action taken: Marked in [employer] for Schedulers Start: 07-29-2024 End: 07-29-2024 Patient encounter procedure 07/29/2024 2:40 PM EST Office Visit Family Medicine [address] [place], [place] [id number] [place] [address] [place], [place] [phone] Return in about 4 weeks (around 07/29/2024) Family Medicine Comment on above: Return in about 4 weeks (around 07/29/20) Start: 07-27-2024 End: 07-27-2024 Patient encounter procedure 07/27/2024 11:30 AM EST Office Visit Breast [place] [address] [address] Kiera Gilmore DO [address] [place], [place] [id number] Teresa David, 07/27/24, 1130am, ty per email [facility] Comment on above: Teresa David, 07/27/24, 1130am, ty per email Start: 07-26-2024 End: 07-26-2024 ambulatory 07/26/2024 8:45 AM EST Results Only [facility] [address] [place] [address] [place] [address] Iron deficiency anemia, unspecified iron deficiency anemia type [D50.9] [facility] Comment on above: Iron deficiency anemia, unspecified iron deficiency anemia type [D50.9] Start: 07-25-2024 End: 07-25-2024 Patient encounter procedure 07/25/2024 3:00 PM EST Office Visit Family Medicine [address] [place] [address] [place] [address] [place] [address] H f/u Family Medicine Comment on above: H f/u Start: 07-25-2024 End: 10-24-2024 CBC W Auto Differential panel - Blood COMPLETE BLOOD COUNT AND DIFFERENTIAL Lab Routine Iron deficiency anemia, unspecified iron deficiency anemia type Expected: 07/25/2024, Expires: 10/24/2024 [facility] Comment on above: Expected: 07/25/2024, Expires: Start: 07-25-2024 End: 10-24-2024 Ferritin [Mass/volume] in Serum or Plasma FERRITIN Lab Routine Iron deficiency anemia, unspecified iron deficiency anemia type Expected: 07/25/2024, Expires: 10/24/2024 [facility] Work Phone: Comment on above: Expected: 07/25/2024, Expires: Start: 07-25-2024 End: 10-24-2024 Iron and Iron binding capacity panel - Serum or Plasma IRON AND TIBC Lab Routine Iron deficiency anemia, unspecified iron deficiency anemia type Expected: 07/25/2024, Expires: 10/24/2024 [facility] Comment on above: Expected: 07/25/2024, Expires: Start: 07-11-2024 End: 07-11-2024 Patient encounter procedure 07/11/2024 8:30 AM EDT Appointment Mammography [address] [place] [address] lt breast us core bx Mammography Comment on above: lt breast us core bx Start: 07-04-2024 End: 07-04-2024 Patient encounter procedure [facility] Comment on above: 11:30A IMAGING; Breast lump with pain x 1 yr; imaging done at [facility](pt hand caring images); Bx recommended by PCP; blood nipple discharge- spontaneous- last noticed 8 months ago Breast lump with suraj n x 1 yr; imaging done at [facility](pt hand caring images); Bx recommended by PCP; blood nipple discharge- spontaneous- last noticed 8 months ago Start: 07-01-2024 End: 09-30-2024 25-hydroxyvitamin D3 [Mass/volume] in Serum or Plasma VITAMIN D 25 HYDROXY Lab Routine Serum calcium elevated Expected: 07/01/2024, Expires: 09/30/2024 [facility] Comment on above: Expected: 07/01/2024, Expires: Start: 07-01-2024 End: 09-30-2024 Comprehensive metabolic 2000 panel - Serum or Plasma COMPREHENSIVE METABOLIC PANEL Lab Routine Serum calcium elevated Expected: 07/01/2024, Expires: 09/30/2024 [facility] Comment on above: Expected: 07/01/2024, Expires: Start: 07-01-2024 End: 09-30-2024 Parathyrin.intact [Mass/volume] in Serum or Plasma PTH INTACT Lab Routine Serum calcium elevated Expected: 07/01/2024, Expires: 09/30/2024 [facility] Comment on above: Expected: 07/01/2024, Expires: Start: 07-01-2024 End: 07-01-2024 Patient encounter procedure 07/01/2024 11:00 AM EDT Office Visit Family Medicine [id number] [place] [address] [place] [address] [place] [phone] est care. Updated PCP per navigation rules. Family Medicine Comment on above: est care. Updated PCP per navigation rul es. Start: 05-31-2024 End: 05-31-2024 Patient encounter procedure 05/31/2024 11:00 AM EDT Office Visit Family Medicine [address] [place] [address] Lisha Bianchi, JOB TRAINING SPECIALIST.DESIGN TRANSFERRER [address] [place] [address] ED follow up Family Medicine Comment on above: ED follow up Start: 05-24-2024 End: 05-24-2024 Patient encounter procedure 05/24/2024 11:15 AM EDT Office Visit Endocrinology [address] [place] [phone] Austin Leon, JOB TRAINING SPECIALIST.DESIGN TRANSFERRER [address] [place] [address] Class 1 obesity due to excess calories without serious comorbidity with body ma Endocrinology Comment on above: Class 1 obesity due to excess calories w ithout serious comorbidity with body ma Start: 05-15-2024 COVID-19 Vaccine ( season) COVID-19 Vaccine () [facility] Start: 05-15-2024 COVID-19 Vaccine ( season) COVID-19 Vaccine () [facility] Start: 05-15-2024 Influenza vaccination [facility] Start: 03-01-2024 End: 03-01-2024 Patient encounter procedure 03/01/2024 11:20 AM EDT Appointment Radiology [address] [place] [address] MRI Panc/Tanmay Wo/W Ivcon Radiology Comment on above: MRI Panc/Tanmay Wo/W Ivcon Start: 01-06-2024 End: 01-06-2024 ambulatory 01/06/2024 8:30 AM EDT Results Only [facility] [address] [place] [address] [place] [address] [facility] Start: 01-04-2024 End: 04-04-2024 CBC panel - Blood by Automated count COMPLETE BLOOD COUNT Lab Routine Routine health maintenance Expected: 01/04/2024, Expires: 04/04/2024 [facility] Work Phone: Comment on above: Expected: 01/04/2024, Expires: Start: 01-04-2024 End: 04-04-2024 Comprehensive metabolic 2000 panel - Serum or Plasma COMPREHENSIVE METABOLIC PANEL Lab Routine Routine health maintenance Expected: 01/04/2024, Expires: 04/04/2024 [facility] Comment on above: Expected: 01/04/2024, Expires: Start: 01-04-2024 End: 04-04-2024 Hemoglobin A1c in Blood HEMOGLOBIN A1C Lab Routine Routine health maintenance Expected: 01/04/2024, Expires: 04/04/2024 [facility] Comment on above: Expected: 01/04/2024, Expires: Start: 01-04-2024 End: 04-04-2024 Hepatitis C virus Ab [Presence] in Serum HEPATITIS C ANTIBODY IA WITH CONFIRMATION Lab Routine Routine health maintenance Expected: 01/04/2024, Expires: 04/04/2024 [facility] Comment on above: Expected: 01/04/2024, Expires: Start: 01-04-2024 End: 04-04-2024 HIV 1+2 Ab [Presence] in Serum or Plasma by Immunoassay HIV 1/2 COMBO WITH REFLEX TO DIFFERENTIATION Lab Routine Routine health maintenance Expected: 01/04/2024, Expires: 04/04/2024 [facility] Comment on above: Expected: 01/04/2024, Expires: Start: 01-04-2024 End: 04-04-2024 Lipid 1996 panel - Serum or Plasma LIPID PANEL BASIC Lab Routine Routine health maintenance Expected: 01/04/2024, Expires: 04/04/2024 [facility] Comment on above: Expected: 01/04/2024, Expires: Start: 12-10-2023 [facility] Start: 09-18-2023 End: 09-18-2023 Egd transoral biopsy single/multiple EGD BIOPSY Gastroesophageal reflux disease, unspecified whether esophagitis present Obesity (BMI 30-39.9) 09/18/2023 8:[address] [facility] Start: 05-15-2023 COVID-19 Vaccine () COVID-19 Vaccine () [facility] Start: 05-15-2023 Influenza vaccination Influenza Vaccine (#1) [facility] Start: 04-14-2023 Influenza vaccination Flu vaccine (#1) [facility] Start: 08-19-2022 Cerebrospinal fluid culture [facility] Start: 08-19-2022 End: 08-19-2022 [facility] Start: 08-12-2022 [facility] Start: 08-12-2022 Glucose [Mass/volume] in Cerebral spinal fluid [facility] Start: 08-12-2022 Protein [Mass/volume] in Cerebral spinal fluid [facility] Start: 08-12-2022 [facility] Start: 08-11-2022 Hospital admission [facility] Start: 08-11-2022 Referral to neurologist [facility] Start: 08-11-2022 [facility] Start: 05-15-2022 Influenza vaccination [facility] Start: 09-29-2021 COVID-19 VACCINE (3 - Booster for Pfizer series) COVID-19 VACCINE (3 - Booster for Pfizer series) [facility] Start: 09-14-2021 DEPRESSION ASSESSMENT DEPRESSION ASSESSMENT [facility] Start: 06-24-2021 COVID-19 VACCINE (3 - Booster for Pfizer series) COVID-19 VACCINE (3 - Booster for Pfizer series) [facility] Start: 06-24-2021 Covid-19 Vaccine (3 - Pfizer series) Covid-19 Vaccine (3 - Pfizer series) [facility] Start: 03-06-2021 End: 03-06-2021 Patient encounter procedure 03/06/2021 Office Visit Bariatrics Gamaliel Vickers DO [address] [place] [phone] [facility] Invasive Bariatric Surg Start: 02-20-2021 End: 02-20-2021 Patient encounter procedure 02/20/2021 Office Visit Bariatrics Gamaliel Vickers DO [address] [place] [phone] [facility] Start: 01-18-2021 End: 01-18-2021 Office Visit 01/18/2021 Office Visit Bariatrics Gamaliel Vickers, DO [address] [facility] [address] [place] [phone] [facility] Invasive Bariatric Surg Start: 01-07-2021 End: 01-07-2021 Hospital Encounter [facility] Comment on above: XI LAPAROSCOPIC ROBOTIC GASTRIC BYPASS R OUX-EN-Y, LIVER BIOPSY, EGD- GI UNIT SCHEDULED. Start: 01-03-2021 End: 01-03-2021 Office Visit [facility] Invasive Bariatric Surg Comment on above: Arrived Start: 12-31-2020 End: 12-31-2021 COVID-19 COVID-19 Lab Routine Preop testing Expected: 12/31/2020, Expires: 12/31/2021 [facility] Work Phone: Comment on above: Expected: 12/31/2020, Expires: Start: 11-21-2020 End: 11-21-2020 Office Visit 11/21/2020 Office Visit Bariatrics Ganesh Cordero, JOB TRAINING SPECIALIST - DESIGN TRANSFERRER [address] [facility] [address] [place] [phone] [facility] Start: 11-01-2020 End: 11-01-2020 Appointment 11/01/2020 Appointment Radiology Radiologist, [facility] Start: 10-24-2020 End: 10-24-2020 Office Visit [facility] Start: 09-26-2020 Annual Wellness Visit (AWV) Annual Wellness Visit (AWV) [facility] [place] Start: 2018 HPV TESTING HPV TESTING [facility] Start: 2018 Screening for malignant neoplasm of cervix [facility] Start: 06-10-2016 Screening for malignant neoplasm of cervix [facility] Start: 2010 DTaP/Tdap/Td Vaccines (1 - Tdap) DTaP/Tdap/Td Vaccines (1 - Tdap) [facility] Start: 2009 PAP TESTING PAP TESTING [facility] Start: 2009 Screening for malignant neoplasm of cervix [facility] Start: 12-18-2007 DTaP/Tdap/Td vaccine (1 - Tdap) DTaP/Tdap/Td vaccine (1 - Tdap) [facility] Start: 12-18-2007 Pneumococcal vaccination Pneumococcal Vaccine (1 of 2 - PCV) [facility] Start: 12-18-2007 Pneumococcal Vaccine: Pediatrics and At-Risk Adult Patients (1 of 2 - PCV) Pneumococcal Vaccine: Pediatrics and At-Risk Adult Patients (1 of 2 - PCV) [facility] Start: 12-18-2007 Urine microalbumin profile [facility] Start: 2006 ANNUAL PCP TEAM CHRONIC DISEASE VISIT ANNUAL PCP TEAM CHRONIC DISEASE VISIT [facility] Start: 2006 BP CONTROLLED (<130/80) BP CONTROLLED (<130/80) [facility] Start: 2006 HEPATITIS C SCREENING HEPATITIS C SCREENING [facility] Start: 2006 Hepatitis C screening [facility] Start: 2006 HIV SCREENING HIV SCREENING [facility] Start: 2006 HIV screening HIV Screening [facility] Start: 2004 COVID-19 Vaccine (1) COVID-19 Vaccine (1) [employer] Phone: Start: 12-18-2003 HIV screening HIV screen [facility] Start: 2001 Varicella vaccination Varicella Vaccines (1 of 2 - 13+ 2-dose series) [facility] Start: 2000 Adult depression screening assessment DEPRESSION SCREENING [facility] Start: 2000 COVID-19 Vaccine (1) COVID-19 Vaccine (1) [employer] Phone: Start: 2000 Depression Monitoring Depression Monitoring [facility] [employer] Start: 12-10-2000 Hepatitis B Vaccine (2 of 3 - 3-dose series) Hepatitis B Vaccine (2 of 3 - 3-dose series) [facility] Start: 12-10-2000 Hepatitis B Vaccines (2 of 3 - 3-dose series) Hepatitis B Vaccines (2 of 3 - 3-dose series) [facility] Start: 1994 PNEUMOCOCCAL (1 - PCV) PNEUMOCOCCAL (1 - PCV) [facility] Start: 1994 Pneumococcal 0-64 years Vaccine (1 - PCV) Pneumococcal 0-64 years Vaccine (1 - PCV) [facility] Start: 1994 Pneumococcal vaccination [facility] Start: 1994 Pneumococcal Vaccine: Pediatrics (0 to 5 Years) and At-Risk Patients (6 to 64 Years) (1 of 2 - PCV) Pneumococcal Vaccine: Pediatrics (0 to 5 Years) and At-Risk Patients (6 to 64 Years) (1 of 2 - PCV) [facility] Start: 1989 Varicella vaccine (1 of 2 - 2-dose childhood series) Varicella vaccine (1 of 2 - 2-dose childhood series) [facility] Start: 1988 HEPATITIS B (1 of 3 - 3-dose series) HEPATITIS B (1 of 3 - 3-dose series) [facility] Start: 1988 Hepatitis B Vaccine (1 of 3 - 3-dose series) Hepatitis B Vaccine (1 of 3 - 3-dose series) [facility] Start: 1988 Hepatitis C screening Hepatitis C screen [place], [place] Start: 1988 HIV screening HIV Screening [facility] Start: 1988 Lipid panel Lipid Panel [facility] Start: 1988 Medicare Annual Wellness Visit Medicare Annual Wellness Visit (AWV) [facility] 24 hour urine measurement [facility] Adenosine monophosphate.cyclic [Moles/volume] in Serum or Plasma [facility] Albumin [Mass/volume ] in Serum or Plasma [facility] Albumin/Globulin ratio [facility] Bacteria identified in Unspecified specimen by Aerobe culture [facility] Work Phone: Bacteria identified in Unspecified specimen by Anaerobe culture [facility] Work Phone: Basic Metabolic Pane l w/ Reflex to MG Basic Metabolic Panel w/ Reflex to MG Lab Routine Daily until discontinued starting 02/01/2021, 1 completed [facility] Work Phone: Comment on above: Daily until discontinued starting 2020, 1 completed Beta 2 glycoprotein 1 IgG Ab [Units/volume] in Serum [facility] Beta 2 glycoprotein 1 IgM Ab [Units/volume] in Serum [facility] End: 09-18-2023 Blood glucose - POCT Blood glucose - POCT Point of Care Testing Routine One Time for 1 Occurrences starting 09/18/2023 until 09/18/2023 [facility] [employer] Comment on above: One Time for 1 Occurrences starting 01/2024 until 09/18/2023 CANNABINOID CONF, UR CANNABINOID CONF, UR Lab Routine Panic disorder 01/04/2024 10:20 AM EDT [facility] Cardiolipin IgA Ab [Units/volume] in Serum by Immunoassay [facility] Cardiolipin IgG Ab [Units/volume] in Serum by Immunoassay [facility] Cardiolipin IgM Ab [Units/volume] in Serum by Immunoassay [facility] Cell count, cerebros kinga fluid [facility] Work Phone: Centromere protein B Ab [Units/volume] in Serum [facility] Cerebrospinal fluid examination [facility] Work Phone: Chromatin Ab [Units/volume] in Serum or Plasma [facility] Complement C3 [Mass/volume] in Serum or Plasma [facility] Complement C4 [Mass/volume] in Serum or Plasma [facility] Continuous pulse oximetry Pulse oximetry, continuous Respiratory Care Routine Every 4hr until discontinued starting 01/07/2021 [employer] Phone: Comment on above: Every 4hr until discontinued starting End: 10-26-2020 COVID-19 COVID-19 Lab Routine Preoperative testing 1 Occurrences starting 10/26/2020 until 10/26/2020 [employer] Phone: Comment on above: 1 Occurrences starting 10/26/2020 until 10/26/2020 COVID-19 [employer] Phone: End: 01-03-2021 COVID-19 COVID-19 Lab Routine Preop testing 1 Occurrences starting 01/03/2021 until 01/03/2021 [employer] Phone: Comment on above: 1 Occurrences starting 01/03/2021 until 01/03/2021 DBT Breast - bilater al diagnostic for implant LINDA DIAG W AV BILATERAL Radiology Routine Mass of upper outer quadrant of left breast 07/04/2024 11:59 AM EDT [facility] Work Phone: ECG COMPLETE ECG COMPLETE ECG Routine Chest pain, unspecified type Palpitations Ordered: 07/01/2024 [facility] Work Phone: Comment on above: Ordered: 07/01/2024 Electrophoresis: [id number] [facility] Electrophoresis: [id number] [facility] Electrophoresis: beta-globulin [facility] Electrophoresis: fiorella ma globulin [facility] Evaluation of cerebrospinal fluid [facility] Work Phone: Fluid sample volume measurement [facility] Work Phone: Globulin [Mass/volum e] in Serum [facility] Glucose [Mass/volume ] in Cerebral spinal fluid [facility] Work Phone: Histone IgG Ab [Units/volume] in Serum by Immunoassay [facility] Homogenous nuclear A b pattern [Titer] in Serum [facility] IgA [Mass/volume] in Serum or Plasma [facility] IgG [Mass/volume] in Serum or Plasma [facility] IgM [Mass/volume] in Serum or Plasma [facility] Immunofixation for Urine [facility] End: 09-18-2023 INITIATE PACU OXYGEN THERAPY PROTOCOL Initiate PACU Oxygen Therapy Protocol Respiratory Care Routine Continuous until discontinued starting 09/18/2023 [facility] Comment on above: Continuous until discontinued starting 0 09/18/2023 Es-1 extractable nuc lear Ab [Units/volume] in Serum [facility] Lupus anticoagulant [Interpretation] in Platelet poor plasma [facility] Measurement of monoc lonal protein concentration [facility] Meningitis+Encephali tis pathogens DNA and RNA panel - Cerebral spinal fluid by JOSÉ MIGUEL with non-probe detection [facility] Work Phone: Microscopic observat ion [Identifier] in Unspecified specimen by Gram stain [facility] Work Phone: End: 08-03-2025 MR Breast - bilateral WO and W contrast IV MRI BREAST WO/W IVCON BILATERAL Radiology Routine Mass of upper outer quadrant of left breast Fibrocystic breast changes of both breasts Mastodynia Inversion of left nipple Bloody discharge from left nipple Nipple discharge 1 Occurrences starting 07/04/2024 until 08/03/2025 [facility] Work Phone: Comment on above: 1 Occurrences starting 07/04/2024 until 08/03/2025 End: 04-07-2025 MR Breast - left WO and W contrast IV MRI BREAST BX WO/W IVCON LEFT Radiology Routine Mass of upper outer quadrant of left breast 1 Occurrences starting 03/08/2024 until 04/07/2025 [facility] Work Phone: Comment on above: 1 Occurrences starting 03/08/2024 until 04/07/2025 End: 12-20-2023 Mra head w/o & w/contrast material MRV BRAIN WO/W IVCON Radiology Routine Idiopathic intracranial hypertension 1 Occurrences starting 11/20/2022 until 12/20/2023 [facility] Work Phone: Comment on above: 1 Occurrences starting 11/20/2022 until 12/20/2023 Myoglobin [Mass/volu me] in Serum or Plasma [facility] Nebulizer therapy HHN Treatment Respiratory Care Routine TID until discontinued starting 01/07/2021 [facility] Work Phone: Comment on above: TID until discontinued starting 01/08/20 21 Nuclear Ab [Titer] i n Serum [facility] Nucleated cells [#/v olume] in Cerebral spinal fluid by Manual count [facility] Work Phone: Oxygen therapy [Mini mum Data Set] [facility] [place], [place] Comment on above: Daily until discontinued starting 2020 Daily until disconti nued starting 01/07/2021 Daily until disconti nued starting 01/31/2021 Oxygen therapy [Mini mum Data Set] Initiate Oxygen Therapy Protocol Respiratory Care Routine As Needed until discontinued starting 09/18/2023 [employer] Work Phone: Comment on above: As Needed until discontinued starting Patient Education [facility] Work Phone: Patient referral [facility] Work Phone: Phase I & II - meter ed glucose Phase I & II - metered glucose Point of Care Testing Routine As Needed until discontinued starting 09/28/2020 [employer] [facility] Comment on above: As Needed until discontinued starting End: 09-28-2020 , urine POCT , urine POCT Point of Care Testing Routine One Time for 1 Occurrences starting 09/28/2020 until 09/28/2020 [employer] [facility] Comment on above: One Time for 1 Occurrences starting 09/14 until 09/28/2020 End: 09-18-2023 , urine POCT , urine POCT Point of Care Testing Routine One Time for 1 Occurrences starting 09/18/2023 until 09/18/2023 [facility] [employer] Comment on above: One Time for 1 Occurrences starting 01/2024 until 09/18/2023 Protein [Mass/volume ] in Cerebral spinal fluid [facility] Work Phone: Protein [Mass/volume ] in Serum or Plasma [facility] Protein [Mass/volume ] in Urine [facility] Reagin Ab [Presence] in Serum by RPR [facility] Red blood cell count [facility] Work Phone: Rheumatoid factor [Units/volume] in Serum or Plasma [facility] Serum immunofixation [facility] Sjogrens syndrome-A extractable nuclear Ab [Units/volume] in Serum [facility] Sjogrens syndrome-B extractable nuclear Ab [Units/volume] in Serum [facility] Helm extractable nu clear Ab [Units/volume] in Serum [facility] SPECIMEN VALIDITY, URINE SPECIME N VALIDITY, URINE Lab Routine Panic disorder 01/04/2024 10:20 AM EDT [facility] Spirometry panel Incentive pete metry Respiratory Care Routine Every 2hr while awake until discontinued starting 01/07/2021 [facility] Work Phone: Comment on above: Every 2hr while awake until discontinued starting 01/07/2021 Surgical Pathology Surgical Path ology Lab Routine Release Upon Ordering for 1 Occurrences starting 09/28/2020 [facility] [place] Comment on above: Release Upon Ordering for 1 Occurrences starting 09/28/2020 SURGICAL PATHOLOGY [facility] Work Phone: Comment on above: Release Upon Ordering for 1 Occurrences starting 07/11/2024, 1 completed Thrombin time [facility] US Breast - left limited US JORDYN ST LTD LEFT Radiology Routine Mass of upper outer quadrant of left breast 07/04/2024 12:13 PM EDT [facility] Immunizations Immunization Date Immunization Notes Care Provider Fa cili 04-29-2021 SARS-CoV-2 (COVID-19 ) mRNA BNT-162b2 vax Aimee Walker [facility] 04-08-2021 SARS-CoV-2 (COVID-19 ) mRNA BNT-162b2 vax Aimee Walker [facility] 07-23-2020 influenza virus vaccine, unspecified formulation Eileen Alvarez MD Work Phone: [facility] 07-09-2020 influenza nasal, unspecified formulation Elia Baires DO Work Phone: [facility] 07-09-2020 influenza virus vaccine, unspecified formulation Aimee Walker [facility] 07-09-2020 influenza, injectable, quadrivalent, preservative free Elia Baires DO Work Phone: [facility] 11-12-2000 hepatitis B vaccine, pediatric or pediatric/adolescent dosage Elia Baires DO Work Phone: [facility] 11-12-2000 measles, mumps and rubella virus vaccine Elia Baires DO Work Phone: [facility] NEGATED: Highlighted row has not occurred!07-21-2022 influenza virus vaccine, unspecified formulation Aimee Valadezell [facility] Payers Date Payer Category Payer Unknown [id number] 2024 Unknown 2023 Medicare (Managed Care) 1.2. [id number] 2023 Medicare [id number] 2021 [place] [id number] 2021-Present [phone] [address] [place] [address] Medicaid [id number] 2021 Medicaid [id number]. [id number] .[id number] 2021 Medicare HUMANA MEDICARE HUMANA MEDICARE PPO [id number] 2021-Present [phone] [address] [address] [place] [address] PPO [id number] .[id number] 2020 Medicare [id number] 1.2.840.388497.1.13.239.2.7 .[id number] 2018 Medicare [id number]. 1.13.159.2.7 .[id number] 2018 Medicare [id number] 1988 Unknown [id number] 2.16.840.1.165910.3.579.2.7 32 1988 Unknown [id number] 2.16.840.1.840148.3.579.2.1 77 1988 Unknown [id number] 2.16.840.1.541486.3.579.2.3 56 1988 Unknown [id number] 2.16.840.1.217787.3.579.2.5 93 1988 Unknown [id number] 2.16.840.1.802663.3.579.2.5 93 1988 Unknown [id number] 2.16.840.1.709041.3.579.2.5 93 1988 Unknown [id number] 2.16.840.1.054671.3.579.2.5 93 1988 Unknown [id number] 2.16.840.1.973726.3.579.2.5 93 1988 Unknown [id number] 2.16.840.1.062255.3.579.2.5 93 1988 Unknown [id number] 2.16.840.1.469678.3.579.2.5 93 1988 Unknown [id number] 2.16.840.1.386043.3.579.2.5 93 1988 Unknown [id number] 2.16.840.1.061449.3.579.2.5 93 1988 Unknown [id number] 2.16.840.1.380135.3.579.2.5 93 1988 Unknown [id number] 2.16.840.1.312927.3.579.2.5 93 1988 Unknown [id number] 2.16.840.1.474599.3.579.2.1 73 1988 Unknown [id number] 2.16.840.1.209061.3.579.2.1 73 1988 Unknown [id number] 2.16.840.1.436927.3.579.2.1 74 1988 Unknown [id number] 2.16.840.1.356420.3.579.2.1 74 1988 Unknown [id number] 2.16.840.1.907083.3.579.2.1 74 1988 Unknown [id number] 2.16.840.1.980112.3.579.2.7 27 1988 Unknown [id number] 2.16.840.1.493306.3.579.2.7 27 1988 Unknown [id number] 2.16.840.1.846558.3.579.2.7 27 1988 Unknown [id number] 2.16.840.1.681618.3.579.2.7 27 1988 Unknown [id number] 2.16.840.1.843414.3.579.2.7 27 1988 Unknown [id number] 2.16.840.1.145620.3.579.2.7 27 1988 Unknown [id number] 2.16.840.1.724173.3.579.2.1 246 1988 Unknown [id number] 2.16.840.1.135001.3.579.2.7 27 1988 Unknown [id number] 2.16.840.1.989265.3.579.2.7 27 1988 Unknown [id number] 2.16.840.1.772896.3.579.2.7 27 1988 Unknown [id number] 2.16.840.1.429420.3.579.2.7 27 1988 Unknown [id number] 2.16.840.1.266109.3.579.2.7 27 1988 Unknown [id number] 2.16.840.1.163160.3.579.2.1 259 1988 Unknown [id number] 2.16.840.1.867558.3.579.2.1 259 1988 Unknown [id number] 2.16.840.1.525550.3.579.2.1 75 1988 Unknown [id number] 2.16.840.1.903714.3.579.2.1 244 1988 Unknown [id number] 2.16.840.1.192911.3.579.2.7 27 1988 Unknown [id number] 2.16.840.1.142912.3.579.2.7 27 1988 Unknown [id number] 2.16.840.1.884640.3.579.2.7 27 1988 Unknown [id number] 2.16840.1.471980.3.579.2.7 27 1988 Unknown [id number] 2.16.840.1.642447.3.579.2.7 27 1988 Unknown [id number] 2.16.840.1.663257.3.579.2.7 27 1988 Unknown [id number] 2.16.840.1.060701.3.579.2.7 27 1988 Unknown [id number] 2.16840.1.888371.3.579.2.7 27 1988 Unknown [id number] 2.16.840.1.826953.3.579.2.7 27 1988 Unknown [id number] 2.16.840.1.325924.3.579.2.7 27 1988 Unknown [id number] 2.16.840.1.605669.3.579.2.7 27 1988 Unknown [id number] 2.16.840.1.518133.3.579.2.7 27 1988 Unknown [id number] 2.16.840.1.210949.3.579.2.7 27 1988 Unknown [id number] 2.16.840.1.730262.3.579.2.7 27 1988 Unknown [id number] 2.16.840.1.046657.3.579.2.7 27 1988 Unknown [id number] 2.16.840.1.959052.3.579.2.7 27 1988 Unknown [id number] 2.16.840.1.639084.3.579.2.7 27 1988 Unknown [id number] 2.16.840.1.012351.3.579.2.7 27 1988 Unknown [id number] 2.16.840.1.546576.3.579.2.7 27 1988 Unknown [id number] 2.16.840.1.316462.3.579.2.7 27 1988 Unknown [id number] 2.16.840.1.588639.3.579.2.7 27 1988 Unknown [id number] 2.16.840.1.628240.3.579.2.7 27 1988 Unknown [id number] 2.16.840.1.872286.3.579.2.7 27 1988 Unknown [id number] 2.16.840.1.949038.3.579.2.7 27 1959 Medicaid [id number] 1.2.840.233659.1.13.239.2.7 .3.296702.315 1959 Private Health Insurance [id number] Self-pay [id number] Private Health Insurance [employer] [facility] PFFS M [id number] Unknown [id number] 2.16.840.1.367942.3.579.2.5 31 Unknown [id number] 2.16.840.1.355385.3.579.2.5 31 Unknown [id number] 2.16.840.1.791123.3.579.2.5 31 Unknown [id number] 2.16.840.1.375692.3.579.2.5 31 Social History Date Type Detail Facility Start: 09-28-2020 End: 01-29-2022 Tobacco smoking status NHIS Former smoker [place] Start: 08-12-2022 End: 09-15-2024 History of tobacco use Current smoker [place] Start: 09-28-2020 End: 07-01-2024 Tobacco use and exposure Never used [place], [place] Start: 09-28-2020 End: 07-25-2024 Alcohol intake Current drinker of alcohol (finding) [place] Start: 09-28-2020 End: 07-03-2022 History SDOH Alcohol Frequency 1 [place] Start: 09-28-2020 Alcohol Comment rare [place] Start: 1990 Sex Assigned At Not on file [place] Start: 12-16-2021 End: 09-13-2024 Exposure to SARS-CoV-2 (event) Not sure [place] End: 03-14-2020 History of tobacco use Cigarette Smoker [facility] [employer] Phone: Start: 09-28-2020 Alcohol Comment rare [facility] [employer] Phone: Start: 12-26-2021 End: 07-01-2024 Tobacco smoking status TXIS Smokes tobacco daily [facility] Start: 12-26-2021 End: 02-27-2023 Cigarettes smoked current (pack per day) - Reported 1 [facility] Start: 03-18-2010 History SDOH Alcohol Comment beer and wine once a month [facility] Start: 07-01-2021 End: 02-17-2025 Tobacco smoking status Heavy tobacco smoker (finding) [facility] Tobacco [facility] status [facility] Start: 07-03-2022 End: 02-27-2023 Sex Assigned At Female [facility] Start: 1990 Sex Assigned At Female [facility] Start: 07-03-2022 History SDOH Alcohol Frequency 5 [facility] Start: 07-03-2022 History SDOH Alcohol Std Drinks 4 [facility] Start: 07-03-2022 History SDOH Social Connections Get Together 2 [facility] Start: 07-03-2022 History SDOH Social Connections Living 3 [facility] Do you belong to any clubs or organizations such as scientology groups, unions, fraternal or athletic groups, or school groups? No [facility] Are you now , , , , never or living with a partner? [facility] How often to you hav e a drink containing alcohol? 4 or more times a week [facility] How many standard dr inks containing alcohol do you have on a typical day? 7 to 9 [facility] How often do you hav e 6 or more drinks on 1 occasion? Daily or almost daily [facility] How hard is it for y ou to pay for the very basics like food, housing, medical care, and heating Not very hard [facility] Do you feel stress - tense, restless, nervous, or anxious, or unable to sleep at night because your mind is troubled all the time - these days [OSQ] To some extent [facility] (I/We) worried iqra er (my/our) food would run out before (I/we) got money to buy more. Sometimes true [facility] The food that (I/we) bought just didn't last, and (I/we) didn't have money to get more. Never true [facility] Start: 01-13-2022 Gender identity Identifies as female gender (finding) [facility] Start: 02-06-2022 Sexual orientation Heterosexual (finding) [facility] How often to you hav e a drink containing alcohol? Never [facility] Start: 12-10-2023 Tobacco smoking status NHIS Never smoked tobacco (finding) [facility] Do you feel stress - tense, restless, nervous, or anxious, or unable to sleep at night because your mind is troubled all the time - these days [OSQ] Only a little [facility] Start: 07-04-2024 Alcohol Comment 13 days sober- 07/04/2024 [facility] Start: 08-08-2024 Alcoholic beverage intake Lifetime non-drinker (finding) [facility] Work Phone: Start: 09-11-2024 Sexual orientation Choose not to disclose [facility] Work Phone: How many standard dr inks containing alcohol do you have on a typical day? 3 or 4 [facility] Start: 08-26-2013 End: 09-15-2024 Sex Female (finding) [facility] Sexual Orientation [facility] Medical Equipment Procedure Code Equipment Code Equipment Origin al Text Equipment Identifier Dates Breast Us Core B x Clip [id number] Start: 07-11-2024 Comment on above: Description: Ribbon clip Functional Status Date Assessment Result Facility 01-27-2025 Functional Status N/A [facility] 01-24-2025 Functional Status N/A [facility] 01-13-2025 Functional Status N/A [facility] 11-28-2024 Functional Status N/A [facility] 11-15-2024 Functional Status N/A [facility] 10-18-2024 Functional Status N/A [facility] 03-08-2024 Functional Status N/A [facility] 07-02-2023 Functional Status N/A [facility] 01-15-2023 Functional Status N/A [facility] 11-21-2022 Functional Status No [facility] 11-03-2022 Functional Status N/A [facility] 09-24-2022 Functional Status N/A [facility] 08-22-2022 Functional Status N/A [facility] 08-18-2022 Functional Status N/A [facility] 08-12-2022 Functional status Patient at Baseline [facility] Work Phone: 08-08-2022 Functional Status N/A [facility] 07-21-2022 Functional Status N/A [facility] 04-21-2022 Functional Status N/A [facility] 04-20-2022 Functional Status N/A [facility] 04-03-2022 Functional Status N/A [facility] Mental Status Date Assessment Result Facility 08-12-2022 Cognitive function Cognitive Sta tus Patient at Baseline [facility] Work Phone: Clinical Notes 12-24-2020 to 03-09-2025 Note Date & Type Note Facility 03-09-2025 Evaluation + Plan note Extrac caitlin from: Title:chronic pain Author:Babar Mayers DO Date:03/09/25 Patient is presenting with a history of lumbar radiculopathy, myofascial pain and lumbar spondyloarthropathy. On 03/03/2025 she underwent bilateral lumbar medial branch blocks target L4/5 and L5/S1 facet joints under fluoroscopic guidance. This provided 100% relief for 3 hours. Unfortunately her pain is returned to the exact same nature and character as before, axial nature worse with twisting turning and bending. Her radicular symptoms are still improved after a left L5/S1 transforaminal epidural steroid injection. She is still taking baclofen and gabapentin with good efficacy. She would like to continue with treatment for her facet mediated pain in her low back as this is a 1/10 now but can be at 5/10 at its worst. She would like to proceed with an ablation for this region. NOAH Score: 18% PHQ-2: 3 Patient denies any symptoms of progressively worsening upper/lower extremity weakness, progressively worsening gait abnormality, new onset bowel/bladder incontinence/ urinary retention, or saddle anesthesia. No new or worsening symptoms of fever, chills, night sweats. 14 Point Review of systems negative unless otherwise noted. General: No acute distress. Patient appears well-nourished. HEENT: Head is normocephalic and external ears are normal in appearance. Cardiovascular: No signs of poor perfusion and no peripheral edema Pulmonary: Nonlabored breathing, symmetric chest movement. GI: Abdomen nondistended Integumentary: No lesions Neurologic: Alert, oriented x3. 5/5 strength grossly in the bilateral upper extremities. Sensation intact to light touch in the bilateral upper extremities. 5/5 strength grossly in the bilateral lower extremities. Sensation intact to light touch in the bilateral lower extremities. MSK/Special Testing: Negative Yudith sign bilaterally. History, physical examination, and personal review of pertinent imaging results indicate a diagnosis of: - Lumbar spondyloarthropathy - Lumbar radiculopathy - Myofascial pain Plan: - Continue baclofen for myofascial pain - Continue gabapentin for radicular symptoms that are now improved - We will schedule her for lumbar medial branch radiofrequency ablation target L4/5 and L5/S1 facet joints under fluoroscopic guidance follow-up 1 month postinjection or sooner if any issues arise Patient was counseled on the above diagnosis and treatment, all questions were answered and patient agrees to adhere to the plan above. Risk and benefits of appropriate procedures and medications were reviewed as well with patient, who voiced understanding and agreeance. Patient was counseled on appropriate use of opioids if prescribed or renewed today and naloxone was offered to patient if opioids were prescribed or maintained at this visit. PHQ-2 scoring reviewed with patient and discussed seeking treatment for depression or mood disorder as appropriate. Patient was counseled on smoking cessation and/or continuing to abstain from nicotine/tobacco products as appropriate based on history for greater than 3 minutes if appropriate; as smoking/nicotine can contribute to increased pain overall and decreased wound healing, counseling performed for smoking cessation when appropriate for F17.200 nicotine dependence. NOAH reviewed and discussed during encounter. Patient counseled on maintaining a healthy BMI as part of the total treatment of their pain and to reduce stress/strain on joints. Patient invited to return or call with any questions or concerns that arise. Future Appointments Appointment Date:03/13/2025 11:30:00 AM Scheduled Provider: Location:[facility] Appointment Type:UT Myocard Spect Multi Rest/Stress-Res Appointment Date:03/13/2025 12:30:00 PM Scheduled Provider: Location:[facility] Appointment Type:NM Myocard Spect Multi Rest/Stress - R Appointment Date:03/13/2025 01:00:00 PM Scheduled Provider: Location:[facility] Appointment Type:NM Myocard Spect Multi Rest/Stress-Str Appointment Date:03/13/2025 02:00:00 PM Scheduled Provider: Location:[facility] Appointment Type:NM Myocar Spect Multi Rest/Stress - St Appointment Date:03/16/2025 02:30:00 PM Scheduled Provider:Jak Peace MD Location[facility] Appointment Type:Cardiology Follow Up ([facility]) Future Scheduled Tests Radiology* NM Myocardial Spect Rest/Stress 1 Day 03/13/25 [facility] 06-26-2025 NoteConsultation Note Patient is presenting with a history of lumbar radiculopathy, myofascial pain and lumbar spondyloarthropathy. On 03/03/2025 she underwent bilateral lumbar medial branch blocks target L4/5 and L5/S1 facet joints under fluoroscopic guidance. This provided 100% relief for 3 hours. Unfortunately her pain is returned to the exact same nature and character as before, axial nature worse with twisting turning and bending. Her radicular symptoms are still improved after a left L5/S1 transforaminal epidural steroid injection. She is still taking baclofen and gabapentin with good efficacy. She would liketo continue with treatment for her facet mediated pain in her low back as this is a 1/10 now but can be at 5/10 at its worst. She would like to proceed with an ablation for this region. NOAH Score: 18% PHQ-2: 3 Patient denies any symptoms of progressively worsening upper/lower extremity weakness, progressively worsening gait abnormality, new onset bowel/bladder incontinence/ urinary retention, or saddle anesthesia. No new or worsening symptoms of fever, chills, night sweats. 14 Point Review of systems negative unless otherwise noted. General: No acute distress. Patient appears well-nourished. HEENT: Head is normocephalic and external ears are normal in appearance. Cardiovascular: No signs of poor perfusion and no peripheral edema Pulmonary: Nonlabored breathing, symmetric chest movement. GI: Abdomen nondistended Integumentary: No lesions Neurologic: Alert, oriented x3. 5/5 strength grossly in the bilateral upper extremities. Sensation intact to light touch in the bilateral upper extremities. 5/5 strength grossly in the bilateral lower extremities. Sensation intact to light touch in the bilateral lower extremities. MSK/Special Testing: Negative Yudith sign bilaterally. History, physical examination, and personal review of pertinent imaging results indicate a diagnosis of: - Lumbar spondyloarthropathy - Lumbar radiculopathy - Myofascial pain Plan: - Continue baclofen for myofascial pain - Continue gabapentin for radicular symptoms that are now improved - We will schedule her for lumbar medial branch radiofrequency ablation target L4/5 and L5/S1 facetjoints under fluoroscopic guidance follow-up 1 month postinjection or sooner if any issues arise Patient was counseled on the above diagnosis and treatment, all questions were answered and patientagrees to adhere to the plan above. Risk and benefits of appropriate procedures and medications were reviewed as well with patient, who voiced understanding and agreeance. Patient was counseled on appropriate use of opioids if prescribed or renewed today and naloxone was offered to patient if opioids were prescribed or maintained at this visit. PHQ-2 scoring reviewed with patient and discussed seeking treatment for depression or mood disorder as appropriate. Patient was counseled on smoking cessation and/or continuing to abstain from nicotine/tobacco products as appropriate based on history for greater than 3 minutes if appropriate; as smoking/nicotine can contribute to increased pain overall and decreased wound healing, counseling performed for smoking cessation when appropriate for F17.200 nicotine dependence. NOAH reviewed and discussed during encounter. Patient counseled on maintaining a healthy BMI as part of the total treatment of their pain and to reduce stress/strain on joints.Patient invited to return or call with any questions or concerns that arise.[facility] HealthComment on above:Result Comment: Electronically Signed By: Babar Mayers DO.br\Date and Time Signed: 03/09/25 13:04 EDT 03-03-2025 NoteOperative Report Diagnosis: m47.816, lumbar spondyloarthropathy Procedure: Bilateral diagnostic lumbar medial branch blocks under fluoroscopic guidance, targeting the L4/5 and L5/S1 facet joints Anesthesia: Local Complications: none After informed consent was obtained, the patient was brought to the procedure room and placed in the prone position. The back area is prepped and draped in usual sterile fashion. Using fluoroscopic guidance skin and subcutaneous tissue overlying needle trajectories to the target sites were anesthetized with 2% lidocaine. 22-gauge needles were advanced under fluoroscopic guidance to the appropriate anatomic landmarks. Needle tip position was confirmed using fluoroscopy in at least 2 views. Afternegative aspiration, injection of small amount of contrast through each needle tip revealed appropriate spread without vascular take. Subsequently, 1.0 mL of 0.5% bupivacaine was injected at each needle tip. The needles were removed. The patient was then transferred to the recovery room in stable condition. Follow-up: Should the patient have pain relief, the patient may be a candidate for radiofrequency lesioning. The patient agrees to continue currently prescribed/recommended therapies.[facility] HealthComment on above: Result Comment: Electronically Signed By: Babar Mayers DO.benito\Date and Time Signed: 03/03/25 08:46 [id number] Hospital Discharge instructions Patient Education 02/17/2025 21:08:51 Near-Syncope Near-Syncope Near-syncope is when you suddenly feel like you might pass out or faint, but you do not actually lose consciousness. This may also be referred to as presyncope. During an episode of near-syncope, youmay: Feel dizzy, weak, light-headed, or like the room is spinning. Feel nauseous. See spots or see all white or all black in your field of vision. Have cold, clammy skin or feel warm and sweaty. Hear ringing in your ears (tinnitus). This condition is caused by a sudden decrease in blood flow to the brain. This decrease can result from various causes, but most of those causes are not dangerous. However, near-syncope may be a signof a serious medical problem, so it is important to seek medical care. Follow these instructions at home: Medicines Take mdur-jvl-mxrpoko and prescription medicines only as told by your health care provider. If you are taking blood pressure or heart medicine, get up slowly and take several minutes to sit and then stand. This can reduce dizziness and decrease the risk of near-syncope. Lifestyle Do not drive, use machinery, or play sports until your health care provider says it is okay. Do not drink alcohol. Do not use any products that contain nicotine or tobacco. These products include cigarettes, chewing tobacco, and vaping devices, such as e-cigarettes. If you need help quitting, ask your health careprovider. Avoid hot tubs and saunas. General instructions Pay attention to any changes in your symptoms. Talk with your health care provider about your symptoms. You may need to have testing to understandthe cause of your near-syncope. If you start to feel like you might faint, sit or lie down right away. If sitting, put your head down between your legs. If lying down, raise (elevate) your feet above the level of your heart. ?Breathe deeply and steadily. Wait until all of the symptoms have passed. ?Have someone stay with you until you feel stable. Drink enough fluid to keep your urine pale yellow. Avoid prolonged standing. If you must stand for a long time, do movements such as: ?Moving your legs. ?Crossing your legs. ?Flexing and stretching your leg muscles. ?Squatting. Keep all follow-up visits. This is important. Contact a health care provider if: You continue to have episodes of near fainting. Get help right away if: You faint. You have any of these symptoms that may indicate trouble with your heart: ?Fast or irregular heartbeats (palpitations). ?Unusual pain in your chest, abdomen, or back. ?Shortness of breath. You have a seizure. You have a severe headache. You are confused. You have vision problems. You have severe weakness or trouble walking. You are bleeding from your mouth or rectum, or have black or tarry stool. These symptoms may represent a serious problem that is an emergency. Do not wait to see if your symptoms will go away. Get medical help right away. Call your local emergency services (911 in the [place] Do not drive yourself to the hospital. Summary Near-syncope is when you suddenly feel like you might pass out or faint, but you do not actually lose consciousness. This condition is caused by a sudden decrease in blood flow to the brain. This decrease can result from various causes, but most of those causes are not dangerous. Near-syncope may be a sign of a serious medical problem, so it is important to seek medical care. If you start to feel like you might faint, sit or lie down right away. If sitting, put your head down between your legs. If lying down, raise (elevate) your feet above the level of your heart. Talk with your health care provider about your symptoms. You may need to have testing to understandthe cause of your near-syncope. This information is not intended to replace advice given to you by your health care provider. Make sure you discuss any questions you have with your health care provider. Document Revised: 01/09/2022 Document Reviewed: 01/09/2022 [employer] Patient Education 2023 [employer] 02/17/2025 21:08:51 Acute Bronchitis, Adult Acute Bronchitis, Adult Acute bronchitis is sudden inflammation of the main airways (bronchi) that come off the windpipe (trachea) in the lungs. The swelling causes the airways to get smaller and make more mucus than normal. This can make it hard to breathe and can cause coughing or noisy breathing (wheezing). Acute bronchitis may last several weeks. The cough may last longer. Allergies, asthma, and exposureto smoke may make the condition worse. What are the causes? This condition can be caused by germs and by substances that irritate the lungs, including: Cold and flu viruses. The most common cause of this condition is the virus that causes the common cold. Bacteria. This is less common. Breathing in substances that irritate the lungs, including: ?Smoke from cigarettes and other forms of tobacco. ?Dust and pollen. ?Fumes from household cleaning products, gases, or burned fuel. ?Indoor or outdoor air pollution. What increases the risk? The following factors may make you more likely to develop this condition: A weak body's defense system, also called the immune system. A condition that affects your lungs and breathing, such as asthma. What are the signs or symptoms? Common symptoms of this condition include: Coughing. This may bring up clear, yellow, or green mucus from your lungs (sputum). Wheezing. Runny or stuffy nose. Having too much mucus in your lungs (chest congestion). Shortness of breath. Aches and pains, including sore throat or chest. How is this diagnosed? This condition is usually diagnosed based on: Your symptoms and medical history. A physical exam. You may also have other tests, including tests to rule out other conditions, such as pneumonia. These tests include: A test of lung function. Test of a mucus sample to look for the presence of bacteria. Tests to check the oxygen level in your blood. Blood tests. Chest X-ray. How is this treated? Most cases of acute bronchitis clear up over time without treatment. Your health care provider may recommend: Drinking more fluids to help thin your mucus so it is easier to cough up. Taking inhaled medicine (inhaler) to improve air flow in and out of your lungs. Using a vaporizer or a humidifier. These are machines that add water to the air to help you breathebetter. Taking a medicine that thins mucus and clears congestion (expectorant). Taking a medicine that prevents or stops coughing (cough suppressant). It is not common to take an antibiotic medicine for this condition. Follow these instructions at home: Take kbwp-vmt-uhmeyho and prescription medicines only as told by your health care provider. Use an inhaler, vaporizer, or humidifier as told by your health care provider. Take two teaspoons (10 mL) of honey at bedtime to lessen coughing at night. Drink enough fluid to keep your urine pale yellow. Do not use any products that contain nicotine or tobacco. These products include cigarettes, chewing tobacco, and vaping devices, such as e-cigarettes. If you need help quitting, ask your health careprovider. Get plenty of rest. Return to your normal activities as told by your health care provider. Ask your health care provider what activities are safe for you. Keep all follow-up visits. This is important. How is this prevented? To lower your risk of getting this condition again: Wash your hands often with soap and water for at least 20 seconds. If soap and water are not available, use hand product applications engineer. Avoid contact with people who have cold symptoms. Try not to touch your mouth, nose, or eyes with your hands. Avoid breathing in smoke or chemical fumes. Breathing smoke or chemical fumes will make your condition worse. Get the flu shot every year. Contact a health care provider if: Your symptoms do not improve after 2 weeks. You have trouble coughing up the mucus. Your cough keeps you awake at night. You have a fever. Get help right away if you: Cough up blood. Feel pain in your chest. Have severe shortness of breath. Faint or keep feeling like you are going to faint. Have a severe headache. Have a fever or chills that get worse. These symptoms may represent a serious problem that is an emergency. Do not wait to see if the symptoms will go away. Get medical help right away. Call your local emergency services (911 in the [place] Do not drive yourself to the hospital. Summary Acute bronchitis is inflammation of the main airways (bronchi) that come off the windpipe (trachea)in the lungs. The swelling causes the airways to get smaller and make more mucus than normal. Drinking more fluids can help thin your mucus so it is easier to cough up. Take egpr-wjk-bwvqjsu and prescription medicines only as told by your health care provider. Do not use any products that contain nicotine or tobacco. These products include cigarettes, chewing tobacco, and vaping devices, such as e-cigarettes. If you need help quitting, ask your health careprovider. Contact a health care provider if your symptoms do not improve after 2 weeks. This information is not intended to replace advice given to you by your health care provider. Make sure you discuss any questions you have with your health care provider. Document Revised: 12/11/2022 Document Reviewed: 01/01/2022 [employer] Patient Education 2023 [employer] Follow Up Care 02/17/2025 18:54:28 With:Jennie Durand Address: [facility] [address] , [facility] [address] [place] [address]- Business (1) When:02/20/2025 20:12:05 [facility] 06-06-2025 NoteED Patient Education Note Neurology Near-Syncope Near-syncope is when you suddenly feel like you might pass out or faint, but you do not actually lose consciousness. This may also be referred to as presyncope. During an episode of near-syncope, youmay: ??? Feel dizzy, weak, light-headed, or like the room is spinning. ??? Feel nauseous. ??? See spots or see all white or all black in your field of vision. ??? Have cold, clammy skin or feel warm and sweaty. ??? Hear ringing in your ears (tinnitus). This condition is caused by a sudden decrease in blood flow to the brain. This decrease can result from various causes, but most of those causes are not dangerous. However, near-syncope may be a signof a serious medical problem, so it is important to seek medical care. Follow these instructions at home: Medicines ??? Take atdf-yjh-ctmzrhj and prescription medicines only as told by your health care provider. ??? If you are taking blood pressure or heart medicine, get up slowly and take several minutes to sit and then stand. This can reduce dizziness and decrease the risk of near-syncope. Lifestyle ??? Do not drive, use machinery, or play sports until your health care provider says it is okay. ??? Do not drink alcohol. ??? Do not use any products that contain nicotine or tobacco. These products include cigarettes, chewing tobacco, and vaping devices, such as e-cigarettes. If you need help quitting, ask your health care provider. ??? Avoid hot tubs and saunas. General instructions ??? Pay attention to any changes in your symptoms. ??? Talk with your health care provider about your symptoms. You may need to have testing to understand the cause of your near-syncope. ??? If you start to feel like you might faint, sit or lie down right away. If sitting, put your head down between your legs. If lying down, raise (elevate) your feet above the level of your heart. ? Breathe deeply and steadily. Wait until all of the symptoms have passed. ? Have someone stay with you until you feel stable. ??? Drink enough fluid to keep your urine pale yellow. ??? Avoid prolonged standing. If you must stand for a long time, do movements such as: ? Moving your legs. ? Crossing your legs. ? Flexing and stretching your leg muscles. ? Squatting. ??? Keep all follow-up visits. This is important. Contact a health care provider if: ??? You continue to have episodes of near fainting. Get help right away if: ??? You faint. ??? You have any of these symptoms that may indicate trouble with your heart: ? Fast or irregular heartbeats (palpitations). ? Unusual pain in your chest, abdomen, or back. ? Shortness of breath. ??? You have a seizure. ??? You have a severe headache. ??? You are confused. ??? You have vision problems. ??? You have severe weakness or trouble walking. ??? You are bleeding from your mouth or rectum, or have black or tarry stool. These symptoms may represent a serious problem that is an emergency. Do not wait to see if your symptoms will go away. Get medical help right away. Call your local emergency services (911 in the [place] Do not drive yourself to the hospital. Summary ??? Near-syncope is when you suddenly feel like you might pass out or faint, but you do not actually lose consciousness. ??? This condition is caused by a sudden decrease in blood flow to the brain. This decrease can result from various causes, but most of those causes are not dangerous. ??? Near-syncope may be a sign of a serious medical problem, so it is important to seek medical care. ??? If you start to feel like you might faint, sit or lie down right away. If sitting, put your head down between your legs. If lying down, raise (elevate) your feet above the level of your heart. ??? Talk with your health care provider about your symptoms. You may need to have testing to understand the cause of your near-syncope. This information is not intended to replace advice given to you by your health care provider. Make sure you discuss any questions you have with your health care provider. Document Revised: 01/09/2022 Document Reviewed: 01/09/2022 [employer] Patient Education ? 2023 [employer] Pulmonary Medicine Acute Bronchitis, Adult Acute bronchitis is sudden inflammation of the main airways (bronchi) that come off the windpipe (trachea) in the lungs. The swelling causes the airways to get smaller and make more mucus than normal. This can make it hard to breathe and can cause coughing or noisy breathing (wheezing). Acute bronchitis may last several weeks. The cough may last longer. Allergies, asthma, and exposureto smoke may make the condition worse. What are the causes? This condition can be caused by germs and by substances that irritate the lungs, including: ??? Cold and flu viruses. The most common cause of this condition is the virus that causes the common cold. ??? (more content not included)...[facility] Tele[facility] encounter Note* Telephone Encounter - Tevin Carson DO - 02/13/2025 8:56 AM EDT Needs follow-up Tevin Carson DO [facility]06-02-2025 Miscellaneous Notes* Telephone Encounter - Tevin Carson DO - 02/13/2025 8:56 AM EDT Needs follow-up Tevin Carson DO * Telephone Encounter - Madeline Teixeira MA - 02/11/2025 10:13 AM EDT Last OV 07/25/2024 ..Pharmacy escripts requesting the following refill: Requested Prescriptions Pending Prescriptions Disp Refills lamoTRIgine (LAMICTAL) 25 mg tablet [Pharmacy Med Name: LAMOTRIGINE 25 MG TABLET] 360 tablet 0 Sig: TAKE 2 TABLETS BY MOUTH TWICE A DAY Please review and advise. Madeline Teixeira MA [facility] encounter Note * Telephone Encounter - Madeline Teixeira MA - 02/11/2025 10:13 AM EDT Last OV 07/25/2024 ..Pharmacy escripts requesting the following refill: Requested Prescriptions Pending Prescriptions Disp Refills lamoTRIgine (LAMICTAL) 25 mg tablet [Pharmacy Med Name: LAMOTRIGINE 25 MG TABLET] 360 tablet 0 Sig: TAKE 2 TABLETS BY MOUTH TWICE A DAY Please review and advise. Madeline Teixeira MA [facility]05-30-2025 NoteEchocardiology Procedure Exam Date/Time Accession # Ordering Dr. [facility] 02/09/2025 11:26 EDT [id number] MOLLY WAGNER CNP CPT code 87253 [id number] Reason for Exam ([facility] Transthoracic Complete) Palpitations R00.2 Report [facility] [address] [place] [address] Adult Echocardiogram Report Name: SHAZIA CHOU Study Date: 02/09/2025 10:52 AM BP: 135/99 mmHg Patient Location: [facility] Ambulatory(s) [facility] HR: 65 : 1990 Gender: Female Height: 67 in Age: 34 yrs Ethnicity: T Weight: 205 lb Reason For Study: Palpitations R00.2 BSA: 2.0 m2 History: HTN,Smoker-Yes Ordering Physician: BERNARD^MOLLY Referring Physician: MOLLY WAGNER Performed By: Candis Matthews, JHOAN, RVT Interpretation Summary The left ventricle is normal in size. There is normal left ventricular wall thickness. Ejection Fraction = 60-65%. The left ventricular ejection fraction is normal. Procedure A complete two-dimensional transthoracic echocardiogram was performed (2D, M- mode, spectral and color flow Doppler). Left Ventricle The left ventricle is normal in size. There is normal left ventricular wall thickness. Ejection Fraction = 60-65%. The left ventricular ejection fraction is normal. Normal diastolic function. Left Atrium The left atrium is grossly normal. Right Atrium Echocardiology Report The right atrium is grossly normal. Right Ventricle The right ventricular systolic function is normal. Aortic Valve The aortic valve is grossly normal. No aortic regurgitation. There is no aortic stenosis. Mitral Valve The mitral valve is grossly normal. Tricuspid Valve Anatomically normal tricuspid valve. There is trace tricuspid regurgitation. Estimated RVSP is 32.7 mmHg. Pulmonic Valve The pulmonic valve is normal. Arteries The aortic root is normal in size. Venous The inferior vena cava is normal in size, and collapses normally with respiration. Effusion There is no pericardial effusion. MMode/2D Measurements & Calculations RVDd: 3.2 cm LVIDd: 4.6 cm FS: 30.5 % Ao root diam: 3.0 cm IVSd: 0.88 cm LVIDs: 3.2 cm EDV(Teich): 96.8 ml Ao root area: 7.1 cm2 LVPWd: 0.69 cm ESV(Teich): 40.7 ml LA dimension: 3.2 cm EF(Teich): 58.0 % LVLd ap4: 8.8 cm EDV(MOD-sp2): 118.0 ml SV(MOD-sp4): 81.0 ml TAPSE: 2.3 cm EDV(MOD-sp4): 125.0 ml ESV(MOD-sp2): 42.6 ml LVLs ap4: 7.5 cm EF(MOD-sp2): 63.9 % ESV(MOD-sp4): 44.0 ml EF(MOD-sp4): 64.8 % IVC Diam: 1.6 cm RV Base_phl: 3.7 cm RVIDd/LVIDd: 0.69 EF (MOD-bp): 64.2 % RV Length_phl: 8.1 cm RV Mid_phl: 3.5 cm LA Vol Index: 21.5 ml/m2 Doppler Measurements & Calculations MV E max joellen: 64.7 cm/sec MV dec time: 0.24 sec Ao V2 max: 139.0 cm/sec LV V1 max P.2 mmHg MV A max joellen: 68.6 cm/sec Ao max P.7 mmHg LV V1 mean P.0 mmHg MV E/A: 0.94 Ao V2 mean: 95.3 cm/sec LV V1 max: 103.0 cm/sec Lat Peak E' Joellen: 11.0 cm/sec Ao mean P.0 mmHg LV V1 mean: 64.5 cm/sec Echocardiology Report E/E' Lat: 5.9 Ao V2 VTI: 28.9 cm LV V1 VTI: 19.5 cm Med Peak E' Joellen: 7.7 cm/sec E/E' Med: 8.4 TR max joellen: 272.6 cm/sec RAP systole: 3.0 mmHg AV VR: 0.74 TR max P.7 mmHg RVSP(TR): 32.7 mmHg Measurements from AB ED Mass (HM): 133.0 grams LAEF (): 62.0 % BSA (HM): 2.0 m2 CI (): 2.8 l/min/m2 MINESH (): 25.0 ml/m2 LAVmax (): 50.0 ml LAVmin (): 19.0 ml Pat Height (): 170.0 cm Pat Weight (HM): 93.0 kg FINAL REPORT Dictated: 02/09/2025 10:52 am Fernandez Daniels MD Signed (Electronic Signature): 02/10/2025 11:27 am Signed by: Fernandez Daniels MD Transcribed by: GINA Technologist: [facility]05-16-2025 Evaluation + Plan noteExtracted from: Title:Pain Managment Follow up Author:Orlando Damon Date:01/27/25 Impression and Plan Patient is a 34-year-old female with a past medical history significant for lumbar spondylolisthesis, lumbar neuritis improved from recent transforaminal epidural steroid injection, chronic lower back pain and lumbar spondylosis. Recent bilateral medial branch block covering the L4-S1 facet joints gave her significant relief. At least 80% for the first 24 hours. She was better able to stand. She is better able to do things. Her quality life is improved. The normal back pain that she experiences was overall resolved. She had some muscular discomfort but the back pain was better. She would like to continue this process and work on getting this amount of pain relief long-term as she feels that overall, this injection was very beneficial to her. She is going to continue on gabapentin and her radicular symptoms still are well-controlled from her previous epidural. She is going to pursue her second bilateral medial branch block once again covering the L4-S1 facet joints under fluoroscopy for diagnostic purposes and if she once again get significant short- term relief she may be future can for RFA. Procedure was discussed. Risks and benefits were discussed. Patient will follow-up 1 week after the injection for reevaluation. NOAH score 29%. As part of providing excellent, safe, comprehensive care, the following was completed at our patient's visit: Reviewed patient's medication reconciliation. Reviewed screening for depression, screening for tobacco use, and patient's Oswestry disability index results. For concerning screenings had a discussion with the patient, provided patient education, and recommended follow-up with primary care provider when appropriate. Patient noted with risk of falling received education on strength, gait, and balance training to prevent future risk of falling. [facility] 05-16-2025 NoteConsultation Note Patient: SHAZIA CHOU Age: 34 years Sex: Female : 1990 Associated Diagnoses: None Author: Orlando Kate PA-C Subjective Chief complaint 01/27/2025 10:12 EDT Back pain . Patient is a 34-year-old female. She presents today for follow-up after undergoing her first bilateral medial branch block covering the L4-S1 facet joints. This was done on 01/24/2025 and she states gave her 80% relief for the first 24 hours. She states that her back was a little sore from the actual procedure itself and the muscles were sore but the actual pain she experiences on a daily basis was overall almost completely resolved until the 24-hour wiley. Unfortunate, at that time the pain thenreturned. After the injection her pain was 0/10 with standing, being upright and active. She states that her normal pain was completely gone. The muscles were sore but things were better. Unfortunate, since then her back pain has since returned back to baseline at a 3???6/10 depending on what she is doing. When she is up and active and doing things throughout the day her back pain gets worse. It is a 6/10 when she is standing. Patient has a history of radicular symptoms and underwent a left-sided L5-S1 transforaminal epidural steroid injection. This helped her radicular symptoms. She is using gabapentin 600 mg in the morning and 1200 mg at night. At this time, she states that the back pain was significantly improved after the medial branch block and she would like to continue this process as she overall feels that thisis 1 thing to give her the most relief from the back pain. Health Status Allergies: Allergic Reactions (Selected) Severity Not Documented Abilify- Suicidal. BuSpar- Palpitations. Coconut Oil- Itching and swelling., Allergies (3) Active Severity Reaction Coconut Oil Itching, Swelling Abilify suicidal BuSpar palpitations Current medications: (Selected) Prescriptions Prescribed gabapentin 600 mg Tab: 600 mg = 1 tab(s), Oral, TID, # 90 tab(s), Refills(s) 2, Pharmacy: [facility]/pharmacy #[id number], 170, cm, 01/13/25 8:29:00 EDT, Height/Length Dosing, 88.5, kg, 01/13/25 8:29:00 EDT, Weight Dosing Documented Medications Documented Cymbalta: 60 mg, Oral, BID, per dr chaparro, Depression Multi-Day Plus Minerals: Oral, Daily, Refill(s) 0 Tylenol: 325 mg, Oral, q4hr, PRN as needed for pain, Refills(s) 0, Pain Vraylar: Oral, Daily, Refills(s) 0 ferrous sulfate 325 mg Tab: TAKE 1 TABLET BY MOUTH EVERY DAY FOR 30 DAYS lamotrigine: 100 mg, Oral, Daily, Refills(s) 0 olanzapine 5 mg Tab: Refills(s) 0 semaglutide: 2.4 mg, SubCutaneous, qWeek, Refills(s) 0 trazodone: 100 mg, Oral, Once a day (at bedtime), Refills(s) 0, Sleep Problem list: All Problems Bipolar disorder / SNOMED CT 21359891 / Confirmed Pancreatic mass / SNOMED CT 6090307940 / Confirmed Smoker / SNOMED CT 649436993 / Confirmed Added secondary to documentation in Social History. Borderline personality disorder / SNOMED CT 00395329 / Confirmed History of bypass of stomach / SNOMED CT 2278758266 / Confirmed Vitamin D deficiency / SNOMED CT 53491361 / Confirmed Left breast mass / SNOMED CT 268103847 / Confirmed Hypertension / SNOMED CT 6874094359 / Confirmed Overweight (BMI 25.0-29.9) / SNOMED CT 2054907629 / Confirmed Muscle weakness-general / SNOMED CT 53773931 / Confirmed Chronic pain syndrome / SNOMED CT 6066713792 / Confirmed Iron deficiency anemia / SNOMED CT 285458034 / Confirmed noted in 09/16/2024 [facility] Records page 5. added per OP CDI policy. Alcohol abuse, uncomplicated / SNOMED CT 89510502 / Confirmed BMI 31.0-31.9,adult / SNOMED CT 840974714 / Confirmed Obesity (BMI 30-39.9) / SNOMED CT 923411188 / Confirmed Resolved: / SNOMED CT 372717439 Resolved: / SNOMED CT 855310843 Resolved: / SNOMED CT 022825930 Resolved: Alcohol abuse / SNOMED CT 08790017 Canceled: Anxiety and depression / SNOMED CT 76075325 Canceled: Plantar fasciitis of left foot / SNOMED CT 439618574 Canceled: Intracranial hypertension / SNOMED CT 307524832 Canceled: Smoker / SNOMED CT [id number] Added secondary to documentation in Social History. Canceled: Class 1 obesity with body mass index (BMI) of 32.0 to 32.9 in adult / SNOMED CT 9799943224 Canceled: Anxiety / SNOMED CT 60816213 Canceled: Depression / SNOMED CT 27782731 Canceled: Borderline personality disorder / SNOMED CT 63814997 Canceled: Class 1 obesity with body mass index (BMI) of 30.0 to 30.9 in adult / SNOMED CT 2226891327 Canceled: Former smoker / SNOMED CT 22012494 Canceled: Grief reaction / SNOMED CT 686126558 Canceled: Overweight with body mass index (BMI) of 29 to 29.9 in adult / SNOMED CT 5953325133 Canceled: Disorder of oral soft tissue / SNOMED CT 9946383248 Canceled: Intentional benzodiazepine overdose / SNOMED CT 7745933598 Canceled: Omental infarction / SNOMED CT 993013209 Canceled: Axillary (more content not included)...[facility] Comment on above:Result Comment: Electronically Signed By: Orlando Kate PA-C\.br\Date and Time Signed: 01/27/25 10:38 [id number] NoteOperative Report Diagnosis: m47.816, lumbar spondyloarthropathy Procedure: Bilateral diagnostic lumbar medial branch blocks under fluoroscopic guidance, targeting the L4/5 and L5/S1 facet joints Anesthesia: Local Complications: none After informed consent was obtained, the patient was brought to the procedure room and placed in the prone position. The back area is prepped and draped in usual sterile fashion. Using fluoroscopic guidance skin and subcutaneous tissue overlying needle trajectories to the target sites were anesthetized with 2% lidocaine. 22-gauge needles were advanced under fluoroscopic guidance to the appropriate anatomic landmarks. Needle tip position was confirmed using fluoroscopy in at least 2 views. Injection of small amount of contrast through each needle tip revealed appropriate spread without vascular take. Subsequently, 0.5 mL of 0.5% bupivacaine was injected at each needle tip. The needles were re moved. The patient was then transferred to the recovery room in stable condition. Follow-up: Should the patient have pain relief, the patient may be a candidate for radiofrequency lesioning. The patient agrees to continue currently prescribed/recommended therapies.[facility]: Result Comment: Electronically Signed By: Babar Mayers DO.br\Date and Time Signed: 01/24/25 09:58 [id number] Evaluation + Plan noteExtracted from: Title:Pain Managment Follow up Author:Orlando Damon Date:01/13/25 Impression and Plan patient is a 34-year-old female with a past medical history significant for lumbar spondylolisthesis, lumbar neuritis improved from recent transforaminal epidural steroid injection, chronic lower back pain and lumbar spondylosis. At this time, she is having a lot of back pain that appears facet mediated. We discussed bilateral medial branch block covering the L4-S1 facet joint. This to be done under fluoroscopy for diagnostic purposes. If she gets significant short lived relief she may be future can for RFA. Procedure was discussed. Risks and benefits were discussed. Patient is agreeable. She will follow-up 1 week after the injection for reevaluation. Call clinic sooner if necessary. She noted that she has previously trialed and failed all reasonable conservative treatments including physical therapy in the past, [id number]-[id number] anti-inflammatory medications and the recent injection helped her radicular symptoms but not her back pain. She is really trying to avoid surgery as she is following with a surgeon as well. At this time, she is inquiring about getting an aquatic therapy requisition as she states that this was recommended to her by her surgeon but they did not give her a requisition as she states that they just recommended it to her. We will provide this for her. She is going to also continue on the gabapentin but we discussed taking 1 pill in the morning and 2 at night as she states that she normally forgets the midday dose. She is going to trial it. [facility] reviewed NOAH score: 36%. As part of providing excellent, safe, comprehensive care, the following was completed at our patient's visit: Reviewed patient's medication reconciliation. Reviewed screening for depression, screening for tobacco use, and patient's Oswestry disability index results. For concerning screenings had a discussion with the patient, provided patient education, and recommended follow-up with primary care provider when appropriate. Patient noted with risk of falling received education on strength, gait, and balance training to prevent future risk of falling. Future Appointments Appointment Date:01/19/2025 09:15:00 AM Scheduled Provider: Location:.[facility] [place] Appointment Type:PT Julieta () [facility] 05-02-2025 NoteConsultation Note Patient: SHAZIA CHOU Age: 34 years Sex: Female : 1990 Associated Diagnoses: None Author: Orlando Kate PA-C Subjective Chief complaint 01/13/2025 8:15 EDT lower back pain- into bilat hips/thighs . Patient is a 34-year-old female. She presents today for follow-up after undergoing a left-sided L5-S1 transforaminal epidural steroid injection. This has helped her left radicular symptoms. She states that she has 100% relief of her leg pain but unfortunate, she is having a lot of back pain. She states that she has been miserable because of the back pain and she has been working full- time. She works at [employer] and they were running a special where they went back to the prices from the 1980s and she states that everybody was ordering [employer] and then everybody called off and she worked for over 12 hours. She states that it was miserable. At this time, she has back pain that she rates a 7/10 but it can get up to a 10/10 with walking, standing, being upright and active. She feels like the Lyrica did not help her so [facility]. She is using 600 mg usually only twice a day because she forgets the middle of the day dose because of work. She saw the spine surgeon once again. He recommended aquatic therapy for her but they did not give her an order. She states that they just recommended and an order was not given to her. She wonders if we could provide this for her. She also states that her PCP wants her to get her gabapentin from us if we are going to continue it. Health Status Allergies: Allergic Reactions (Selected) Severity Not Documented Abilify- Suicidal. BuSpar- Palpitations. Coconut Oil- Itching and swelling., Allergies (3) Active Severity Reaction Coconut Oil Itching, Swelling Abilify suicidal BuSpar palpitations Current medications: (Selected) Prescriptions Prescribed Zofran 8 mg Tab: 8 mg = 1 tab(s), Oral, BID, # 6 tab(s), Refills(s) 1, Pharmacy: [facility]/pharmacy #[id number], 162, cm, 08/08/22 9:11:00 EST, Height/Length Dosing, 83.1, kg, 08/08/22 9:11:00 EST, Weight Dosing pregabalin 50 mg Cap: 50 mg = 1 cap(s), Oral, BID, X 30 day(s), # 60 cap(s), Refills(s) 1, Pharmacy: [facility]/pharmacy #[id number], 170, cm, 11/15/24 13:59:00 EST, Height/Length Dosing, 88.5, kg, 11/15/24 13:59:00 EST, Weight Dosing Documented Medications Documented Cymbalta: 60 mg, Oral, BID, per dr chaparro, Depression Multi-Day Plus Minerals: Oral, Daily, Refill(s) 0 Tylenol: 325 mg, Oral, q4hr, PRN as needed for pain, Refills(s) 0, Pain Vraylar: Oral, Daily, Refills(s) 0 ferrous sulfate 325 mg Tab: TAKE 1 TABLET BY MOUTH EVERY DAY FOR 30 DAYS gabapentin: 300 mg, Oral, BID-TID, Refills(s) 0 lamotrigine 25 mg Tab: TAKE 3 TABLETS BY MOUTH EVERY DAY lamotrigine: 100 mg, Oral, Daily, Refills(s) 0 olanzapine 5 mg Tab: Refills(s) 0 trazodone: 100 mg, Oral, Once a day (at bedtime), Refills(s) 0, Sleep Problem list: All Problems Bipolar disorder / SNOMED CT 15020512 / Confirmed Pancreatic mass / SNOMED CT 3937165315 / Confirmed Smoker / SNOMED CT 053816931 / Confirmed Added secondary to documentation in Social History. Borderline personality disorder / SNOMED CT 78326280 / Confirmed History of bypass of stomach / SNOMED CT 3754217245 / Confirmed Vitamin D deficiency / SNOMED CT 78448741 / Confirmed Left breast mass / SNOMED CT 714180933 / Confirmed Hypertension / SNOMED CT 6047910005 / Confirmed Overweight (BMI 25.0-29.9) / SNOMED CT 9435333268 / Confirmed Muscle weakness-general / SNOMED CT 23216126 / Confirmed Chronic pain syndrome / SNOMED CT 4790085342 / Confirmed Iron deficiency anemia / SNOMED CT 465944016 / Confirmed noted in 09/16/2024 [facility] Records page 5. added per OP CDI policy. Alcohol abuse, uncomplicated / SNOMED CT 40311198 / Confirmed BMI 31.0-31.9,adult / SNOMED CT 368649404 / Confirmed Obesity (BMI 30-39.9) / SNOMED CT 697578157 / Confirmed Resolved: / SNOMED CT 328161618 Resolved: / SNOMED CT 059618148 Resolved: / SNOMED CT 986869519 Resolved: Alcohol abuse / SNOMED CT 99153845 Canceled: Anxiety and depression / SNOMED CT 30675829 Canceled: Plantar fasciitis of left foot / SNOMED CT 558109008 Canceled: Intracranial hypertension / SNOMED CT 771605910 Canceled: Smoker / SNOMED CT [id number] Added secondary to documentation in Social History. Canceled: Class 1 obesity with body mass index (BMI) of 32.0 to 32.9 in adult / SNOMED CT 7269524855 Canceled: Anxiety / SNOMED CT 39207284 Canceled: Depression / SNOMED CT 55561389 Canceled: Borderline personality disorder / SNOMED CT 47340954 Canceled: Class 1 obesity with body mass index (BMI) of 30.0 to 30.9 in adult / SNOMED CT 4392831819 Canceled: Former smoker / SNOMED CT 66389609 Canceled: Grief reaction / SNOMED CT 768352971 Canceled: Overweight with body mass index (BMI) of 29 to 29.9 in adult / SNOMED CT 9553419666 Cance (more content not included)...[facility]: Result Comment: Electronically Signed By: Orlando Kate PA-C\.br\Date and Time Signed: 01/13/25 08:44 [id number] Evaluation + Plan noteExtracted from: Title:Bilateral lumbar media l branch blocks target L4/5 and L5/S1 facets Author:Babar Mayers DO Date:01/24/25 Diagnosis: m47.816, lumbar s pondyloarthropathy Procedure: Bilateral diagnostic lumbar medial branch blocks under fluoroscopic guidance, targeting the L4/5 and L5/S1 facet joints Anesthesia: Local Complications: none After informed consent was obtained, the patient was brought to the procedure room and placed in the prone position. The back area is prepped and draped in usual sterile fashion. Using fluoroscopic guidance skin and subcutaneous tissue overlying needle trajectories to the target sites were anesthetized with 2% lidocaine. 22- gauge needles were advanced under fluoroscopic guidance to the appropriate anatomic landmarks. Needle tip position was confirmed using fluoroscopy in at least 2 views. Injection of small amount of contrast through each needle tip revealed appropriate spread without vascular take. Subsequently, 0.5 mL of 0.5% bupivacaine was injected at each needle tip. The needles were removed. The patient was then transferred to the recovery room in stable condition. Follow-up: Should the patient have pain relief, the patient may be a candidate for radiofrequency lesioning. The patient agrees to continue currently prescribed/recommended therapies. Future Appointments Appointment Date:01/27/2025 10:15:00 AM Scheduled Provider:Orlando Kate PA-C Location:.[facility] Appointment Type:Pain Management - Follow Up (FT) [facility] 04-05-2025 Evaluation + Plan noteExtracted from: Title:Bilateral lumbar media l branch blocks target L4/5 and L5/S1 facets Author:Babar Mayers DO Date:03/03/25 Diagnosis: m47.816, lumbar s pondyloarthropathy Procedure: Bilateral diagnostic lumbar medial branch blocks under fluoroscopic guidance, targeting the L4/5 and L5/S1 facet joints Anesthesia: Local Complications: none After informed consent was obtained, the patient was brought to the procedure room and placed in the prone position. The back area is prepped and draped in usual sterile fashion. Using fluoroscopic guidance skin and subcutaneous tissue overlying needle trajectories to the target sites were anesthetized with 2% lidocaine. 22- gauge needles were advanced under fluoroscopic guidance to the appropriate anatomic landmarks. Needle tip position was confirmed using fluoroscopy in at least 2 views. After negative aspiration, injection of small amount of contrast through each needle tip revealed appropriate spread without vascular take. Subsequently, 1.0 mL of 0.5% bupivacaine was injected at each needle tip. The needles were removed. The patient was then transferred to the recovery room in stable condition. Follow-up: Should the patient have pain relief, the patient may be a candidate for radiofrequency lesioning. The patient agrees to continue currently prescribed/recommended therapies. Future Appointments Appointment Date:03/09/2025 12:30:00 PM Scheduled Provider:Babar Mayers DO Location:.[facility] Appointment Type:Pain Management - Follow Up (FT) Appointment Date:03/13/2025 11:30:00 AM Scheduled Provider: [facility] Type:NM Myocard Spect Multi Rest/Stress-Res Appointment Date:03/13/2025 12:30:00 PM Scheduled Provider: [facility] Type:NM Myocard Spect Multi Rest/Stress - R Appointment Date:03/13/2025 01:00:00 PM Scheduled Provider: [facility] App[facility] Type:NM Myocard Spect Multi Rest/Stress-Str Appointment Date:03/13/2025 02:00:00 PM Scheduled Provider: [facility] App[facility] Type:NM Myocar Spect Multi Rest/Stress - St Appointment Date:03/16/2025 02:30:00 PM Scheduled Provider:Jak Peace MD [facility]iology Follow Up (FT) Future Scheduled Tests Radiology* NM Myocardial Spect Rest/Stress 1 Day 03/13/25 [facility] 03-17-2025 Evaluation + Plan noteExtracted from: Title:Left L5/S1 transforami nal epidural steroid injection under fluoroscopic guidance Author:Babar Mayers DO Date:11/28/24 Diagnosis: m54.16, lumbar ra diculopathy Procedure: Left L5/S1 lumbar transforaminal epidural steroid injection under fluoroscopic guidance Anesthesia: Local Complications: none After informed consent was obtained, the patient was brought to the procedure suite placed in the prone position. Pulse oximetry and blood pressure were monitored throughout. The low back area is prepped and draped in usual sterile fashion. Using fluoroscopic guidance, skin and subcutaneous tissue overlying the trajectory of the neuroforamina were anesthetized with 2% lidocaine. A 22-gauge Sprotte needles were then advanced under fluoroscopic guidance to the appropriate foramina. Needle tip positions were confirmed under at least 2 fluoroscopic views. Injection of contrast revealed appropriate spread of the dye without vascular uptake. Next, 2 mL of 1.0% lidocaine with 10 mg of dexamethasone was injected through the needle tip. The needle was then removed and the patient was then transferred to the recovery room in stable condition. The pain tolerated the procedure well. There were no apparent complications. Follow-up: The patient will update us on the response to this procedure, and agrees to comply to currently prescribed/recommended therapies. Future Appointments Appointment Date:11/29/2024 07:00:00 AM Scheduled Provider: Location:FT.[facility] Appointment Type:US Abdominal/Pelvis (FT) Appointment Date:12/19/2024 10:15:00 AM Scheduled Provider:Orlando Kate PA-C Location:FT.Pain [facility] Appointment Type:Pain Management - Follow Up (FT) Future Scheduled Tests Radiology* US Abdomen, Limited 11/29/24 [facility] 03-17-2025 NoteOperative Report Diagnosis: m54.16, lumbar radiculopathy Procedure: Left L5/S1 lumbar transforaminal epidural steroid injection under fluoroscopic guidance Anesthesia: Local Complications: none After informed consent was obtained, the patient was brought to the procedure suite placed in the prone position. Pulse oximetry and blood pressure were monitored throughout. The low back area is prepped and draped in usual sterile fashion. Using fluoroscopic guidance, skin and subcutaneous tissue overlying the trajectory of the neuroforamina were anesthetized with 2% lidocaine. A 22-gauge Sprotte needles were then advanced under fluoroscopic guidance to the appropriate foramina. Needle tip positions were confirmed under at least 2 fluoroscopic views. Injection of contrast revealed appropriate spread of the dye without vascular uptake. Next, 2 mL of 1.0% lidocaine with 10 mg of dexamethasone was injected through the needle tip. The needle was then removed and the patient was then transferred to the recovery room in stable condition. The pain tolerated the procedure well. There were no apparent complications. Follow-up: The patient will update us on the response to this procedure, and agrees to comply to currently prescribed/recommended therapies.[facility] Comment on above:Result Comment: Electronically Signed By: Babar Mayers DO\.br\Date and Time Signed: 11/28/24 10:22 [id number] NoteConsultation Note Patient: SHAZIA CHOU Age: 33 years Sex: Female : 1990 Associated Diagnoses: None Author: Orlando Kate PA-C Basic Information Accompanied by: No one. Source of history: Self. Referral source: Self. Chief Complaint 11/15/2024 13:35 EST back pain History of Present Illness Patient is a 33-year-old female presenting today as a new patient with complaints of lower back pain with left buttock pain and left radiating leg pain. She states that in fact, her left radiating leg pain is more bothersome than her back pain but they are both present and bothersome to her. She rates them a 7???10/10 on the visual analog scale. She states that the more she is up and active the worst the pain gets. This has been going on for years and unfortunate, recently has gotten worse. [facility] physical therapy. Unfortunate, this did not give her any significant relief. She saw a spine surgeon. He discussed with her surgery based on her spondylolisthesis but he wanted her to try all conservative treatments first. She has taken rxgq-jul-tkaqbhv medication without any long-term relief. She states that her left leg pain affects her quality of life and affects her activities. 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 She just started there and she is hopeful to make this better but she states that she cannot do things she wants to because the pain. Review of Systems Constitutional: No fever, No chills. Eye: No recent visual problem. Ear/Nose/Mouth/Throat: No decreased hearing. Respiratory: No shortness of breath, No cough. Cardiovascular: No chest pain. Gastrointestinal: No nausea, No vomiting. Genitourinary: No dysuria, No hematuria. Hematology/Lymphatics: No bruising tendency, No bleeding tendency. Musculoskeletal: Back pain, Claudication, Decreased range of motion. Integumentary: No rash, No pruritus. Neurologic: Alert and oriented X4, Numbness, Tingling. Psychiatric: No anxiety, No depression. Health Status Allergies: Allergic Reactions (Selected) Severity Not Documented Abilify- Suicidal. BuSpar- Palpitations. Coconut Oil- Itching and swelling. Current medications: No qualifying data available Problem list: All Problems Bipolar disorder / SNOMED CT 28005443 / Confirmed Pancreatic mass / SNOMED CT 1476958378 / Confirmed Smoker / SNOMED CT 576905644 / Confirmed Added secondary to documentation in Social History. Borderline personality disorder / SNOMED CT 43382465 / Confirmed History of bypass of stomach / SNOMED CT 9465215530 / Confirmed Vitamin D deficiency / SNOMED CT 38651795 / Confirmed Left breast mass / SNOMED CT 076375897 / Confirmed Hypertension / SNOMED CT 5690232972 / Confirmed Overweight (BMI 25.0-29.9) / SNOMED CT 1061667928 / Confirmed Muscle weakness-general / SNOMED CT 39219816 / Confirmed Chronic pain syndrome / SNOMED CT 6251542326 / Confirmed Iron deficiency anemia / SNOMED CT 895979092 / Confirmed noted in 09/16/2024 [facility] Records page 5. added per OP CDI policy. Alcohol abuse, uncomplicated / SNOMED CT 63603723 / Confirmed BMI 31.0-31.9,adult / SNOMED CT 571522344 / Confirmed Obesity (BMI 30-39.9) / SNOMED CT 240706981 / Confirmed Resolved: / SNOMED CT 488877101 Resolved: / SNOMED CT 850896689 Resolved: / SNOMED CT 989398823 Resolved: Alcohol abuse / SNOMED CT 92947860 Canceled: Anxiety and depression / SNOMED CT 01660729 Canceled: Plantar fasciitis of left foot / SNOMED CT 319223541 Canceled: Intracranial hypertension / SNOMED CT 551870736 Canceled: Smoker / SNOMED CT [id number] Added secondary to documentation in Social History. Canceled: Class 1 obesity with body mass index (BMI) of 32.0 to 32.9 in adult / SNOMED CT 7567093198 Canceled: Anxiety / SNOMED CT 39621367 Canceled: Depression / SNOMED CT 84993927 Canceled: Borderline personality disorder / SNOMED CT 27844660 Canceled: Class 1 obesity with body mass index (BMI) of 30.0 to 30.9 in adult / SNOMED CT 1514179402 Canceled: Former smoker / SNOMED CT 53485690 Canceled: Grief reaction / SNOMED CT 834775515 Canceled: Overweight with body mass index (BMI) of 29 to 29.9 in adult / SNOMED CT 0647847056 Canceled: Disorder of oral soft tissue / SNOMED CT 5327781635 Canceled: Intentional benzodiazepine overdose / SNOMED CT 0824148431 Canceled: Omental infarction / SNOMED CT 211175395 Canceled: Axillary lymphadenopathy / SNOMED CT 375194 Canceled: BMI 28.0-28.9,adult / SNOMED CT 5971089191 Canceled: Over weight / SNOMED CT 835519119 Canceled: Leukocytosis / SNOMED CT 211997586 Canceled: BMI 29.0-29.9,adult / SNOMED CT 3320926406 Canceled: Headache after spinal puncture / SNOMED CT 413413301 Canceled: Trapezius muscle spasm / SNOMED CT 3109354162 Canceled: Recovering alcoholic (more content not included)...[facility]Result Comment: Electronically Signed By: Humble GERONIMO Orlando\.br\Date and Time Signed: 11/15/24 14:14 [id number] Evaluation + Plan noteExtracted from: Title:Pain Managment H&P new patient Author:Orlando Aguillon PA-C Date:11/15/24 Impression and Plan Patient is a 33-year-old female with past medical history significant for lumbar spondylolisthesis, pars defect and lumbar neuritis. At this time, she has lower back pain with left buttock pain and left radiating leg pain. This affects her ambulatory status. This affects her quality life and affects her activities. Affects her ability to do things she wants to do. At this time, we reviewed her MRI and we discussed different options. She has seen a spine surgery but they are trying to avoid surgery. She wants to try and avoid this at all cost. At this time, she tried to do physical therapy but could not get relief from this and in fact, she feels that it made her pain worse. Based on her imaging findings, her failure to improve with conservative treatments and the significant radicular symptoms she is still experiencing I recommended to patient a left-sided L5-S1 transforaminal epidural steroid injection to be done under fluoroscopy for both diagnostic and therapeutic purposes. Procedure was discussed. Risks and benefits were discussed. Patient is agreeable. She is going to follow-up 2 weeks after the injection for reevaluation. Call clinic sooner if necessary. NOAH score: 42%. [facility] 02-04-2025 Evaluation + Plan noteExtracted from: Title:ED Note Author:Beto Shea PA-C te:10/18/24 Chronic pain (G89.29: Other chronic pain) Orders: ketorolac, 60 mg = 2 mL, Injection, IntraMuscular, Once PRN Pain, STAT, Start date 10/18/24 8:31:00 EST, 10/18/24 8:31:00 EST methocarbamol, 1,500 mg = 2 tab(s), Oral, TID, X 3 day(s), # 18 tab(s), Refills(s) 0, Pharmacy: [facility]/pharmacy #[id number], 170, cm, 10/18/24 8:12:00 EST, Height/Length Dosing, 90, kg, 10/18/24 8:12:00 EST, Weight Dosing predniSONE, 60 mg = 3 tab(s), Oral, Daily, X 7 day(s), # 21 tab(s), Refills(s) 0, Pharmacy: [facility]/pharmacy #[id number], 170, cm, 10/18/24 8:12:00 EST, Height/Length Dosing, 90, kg, 10/18/24 8:12:00 EST, Weight Dosing Future Appointments Appointment Date:11/18/2024 08:00:00 AM Scheduled Provider:KURT BALBUENA CNP Location:[facility] Appointment Type:[facility] 02-04-2025 Hospital Discharge instructions Patient Education 10/18/2024 08:40:02 Chronic Pain, Adult Chronic Pain, Adult Chronic pain is a type of pain that lasts or keeps coming back for at least 3 6 months. You may have headaches, pain in the abdomen, or pain in other areas of the body. Chronic pain may be related hardy illness, injury, or a health condition. Sometimes, the cause of chronic pain is not known. Chronic pain can make it hard for you to do daily activities. If it is not treated, chronic pain can lead to anxiety and depression. Treatment depends on the cause of your pain and how severe it is. You may need to work with a pain specialist to come up with a treatment plan. Many people benefit from two or more types of treatment to control their pain. Follow these instructions at home: Treatment plan Follow your treatment plan as told by your health care provider. This may include: Gentle, regular exercise. Eating a healthy diet that includes foods such as vegetables, fruits, fish, and lean meats. Mental health therapy (cognitive or behavioral therapy) that changes the way you think or act in response to the pain. This may help improve how you feel. Doing physical therapy exercises to improve movement and strength. Meditation, yoga, acupuncture, or massage therapy. Using the oils from plants in your environment or on your skin (aromatherapy). Other treatments may include: Rrbm-uow-noomtow or prescription medicines. Color, light, or sound therapy. Local electrical stimulation. The electrical pulses help to relieve pain by temporarily stopping the nerve impulses that cause you to feel pain. Injections. These deliver numbing or pain-relieving medicines into the spine or the area of pain. Medicines Take pldw-dug-ivwlsgl and prescription medicines only as told by your health care provider. Ask your health care provider if the medicine prescribed to you: ?Requires you to avoid driving or using machinery. ?Can cause constipation. You may need to take these actions to prevent or treat constipation: ?Drink enough fluid to keep your urine pale yellow. ?Take edon-ryu-wktsmmf or prescription medicines. ?Eat foods that are high in fiber, such as beans, whole grains, and fresh fruits and vegetables. ?Limit foods that are high in fat and processed sugars, such as fried or sweet foods. Lifestyle Ask your health care provider whether you should keep a pain diary. Your health care provider will tell you what information to write in the diary. This may include: ?When you have pain. ?What the pain feels like. ?How medicines and other behaviors or treatments help to reduce the pain. Consider talking with a mental health care provider about how to help manage chronic pain. Consider joining a chronic pain support group. Try to control or lower your stress levels. Talk with your health care provider about ways to do this. General instructions Learn as much as you can about how to manage your chronic pain. Ask your health care provider if anintensive pain rehabilitation program or a chronic pain specialist would be helpful. Check your pain level as told by your health care provider. Ask your health care provider if you should use a pain scale. Contact a health care provider if: Your pain is not controlled with treatment. You have new pain. You have side effects from pain medicine. You feel weak or you have trouble doing your normal activities. You have trouble sleeping or you develop confusion. You lose feeling or have numbness in your body. You lose control of your bowels or bladder. Get help right away if: Your pain suddenly gets much worse. You develop chest pain. You have trouble breathing or shortness of breath. You faint, or another person sees you faint. These symptoms may be an emergency. Get help right away. Call 911. Do not wait to see if the symptoms will go away. Do not drive yourself to the hospital. Also, get help right away if: You have thoughts about hurting yourself or others. Take one of these steps if you feel like you may hurt yourself or others, or have thoughts about taking your own life: Go to your nearest emergency room. Call 911. Call the National Suicide Prevention Lifeline at or 977. This is open 24 hours a day. Text the Crisis Text Line at 321221. This information is not intended to replace advice given to you by your health care provider. Make sure you discuss any questions you have with your health care provider. Document Revised: 04/22/2023 Document Reviewed: 03/25/2023 [employer] Patient Education 2023 [employer] Follow Up Care 10/18/2024 08:05:45 With:KURT BALBUENA Address: [address] [place] [phone] Business (1) When:10/21/2024 08:32:28 [facility] 02-04-2025 NoteED Patient Education Note Mental and Behavioral Health Chronic Pain, Adult Chronic pain is a type of pain that lasts or keeps coming back for at least 3?6 months. You may have headaches, pain in the abdomen, or pain in other areas of the body. Chronic pain may be related hardy illness, injury, or a health condition. Sometimes, the cause of chronic pain is not known. Chronic pain can make it hard for you to do daily activities. If it is not treated, chronic pain can lead to anxiety and depression. Treatment depends on the cause of your pain and how severe it is. You may need to work with a pain specialist to come up with a treatment plan. Many people benefit from two or more types of treatment to control their pain. Follow these instructions at home: Treatment plan Follow your treatment plan as told by your health care provider. This may include: ??? Gentle, regular exercise. ??? Eating a healthy diet that includes foods such as vegetables, fruits, fish, and lean meats. ??? Mental health therapy (cognitive or behavioral therapy) that changes the way you think or act in response to the pain. This may help improve how you feel. ??? Doing physical therapy exercises to improve movement and strength. ??? Meditation, yoga, acupuncture, or massage therapy. ??? Using the oils from plants in your environment or on your skin (aromatherapy). Other treatments may include: ??? Xmfa-lem-lqctkzp or prescription medicines. ??? Color, light, or sound therapy. ??? Local electrical stimulation. The electrical pulses help to relieve pain by temporarily stopping the nerve impulses that cause you to feel pain. ??? Injections. These deliver numbing or pain-relieving medicines into the spine or the area of pain. Medicines ??? Take cibe-mhy-ghawsyc and prescription medicines only as told by your health care provider. ??? Ask your health care provider if the medicine prescribed to you: ? Requires you to avoid driving or using machinery. ? Can cause constipation. You may need to take these actions to prevent or treat constipation: ? Drink enough fluid to keep your urine pale yellow. ? Take knew-tdo-vyxrhsu or prescription medicines. ? Eat foods that are high in fiber, such as beans, whole grains, and fresh fruits and vegetables. ? Limit foods that are high in fat and processed sugars, such as fried or sweet foods. Lifestyle ??? Ask your health care provider whether you should keep a pain diary. Your health care provider will tell you what information to write in the diary. This may include: ? When you have pain. ? What the pain feels like. ? How medicines and other behaviors or treatments help to reduce the pain. ??? Consider talking with a mental health care provider about how to help manage chronic pain. ??? Consider joining a chronic pain support group. ??? Try to control or lower your stress levels. Talk with your health care provider about ways to do this. General instructions ??? Learn as much as you can about how to manage your chronic pain. Ask your health care provider if an intensive pain rehabilitation program or a chronic pain specialist would be helpful. ??? Check your pain level as told by your health care provider. Ask your health care provider if you should use a pain scale. Contact a health care provider if: ??? Your pain is not controlled with treatment. ??? You have new pain. ??? You have side effects from pain medicine. ??? You feel weak or you have trouble doing your normal activities. ??? You have trouble sleeping or you develop confusion. ??? You lose feeling or have numbness in your body. ??? You lose control of your bowels or bladder. Get help right away if: ??? Your pain suddenly gets much worse. ??? You develop chest pain. ??? You have trouble breathing or shortness of breath. ??? You faint, or another person sees you faint. These symptoms may be an emergency. Get help right away. Call 911. ??? Do not wait to see if the symptoms will go away. ??? Do not drive yourself to the hospital. Also, get help right away if: ??? You have thoughts about hurting yourself or others. Take one of these steps if you feel like you may hurt yourself or others, or have thoughts about taking your own life: ??? Go to your nearest emergency room. ??? Call 911. ??? Call the National Suicide Prevention Lifeline at or 163. This is open 24 hours aday. ??? Text the Crisis Text Line at 458771. This information is not intended to replace advice given to you by your health care provider. Make sure you discuss any questions you have with your health care provider. Document Revised: 04/22/2023 Document Reviewed: 03/25/2023 [employer] Patient Education ? 2023 [employer] 10-17-2024 NoteHNO ID: [id number] Author: MELISSA GOLD MA Service: ? Author Type: Delivery Nurse Type: Progress Notes Filed: 10/17/2024 12:28 Note Text: POPULATION HEALTH NAVIGATION OUTREACH Action/ Topic Due (Y or N) Comments Medicare Wellness Y PCP Follow up Y Mammogram N Colorectal Cancer Screening N A1C N Controlling BP N Dilated Retinal Exam (RONAK) N KED (UACR and eGFR) N HCC Y Flu Vaccine Y Care Everywhere Reviewed DONE MyChart Activation ACTIVE Updated Appointment Note N/A Reason for Outreach Care Gap/HCC or Scheduling Wellness Visits Care Gaps due: Medicare Annual Wellness Visit Follow-up Appointment Flu Vaccine Patient Contacted: Unable or unnecessary to reach patient: Left message weipasshart message sent HCC related Navigation Signature: Melissa Gold MA October 17, 2024 12:23 [facility]02-03-2025 History of Present illness Narrative* Melissa Gold MA - 10/17/2024 12:21 PM EST POPULATION HEALTH NAVIGATION OUTREACH Action/FYI Topic Due (Y or N) Comments Medicare Wellness Y PCP Follow up Y Mammogram N Colorectal Cancer Screening N A1C N Controlling BP N Dilated Retinal Exam (RONAK) N KED (UACR and eGFR) N HCC Y Flu Vaccine Y Care Everywhere Reviewed DONE MyChart Activation ACTIVE Updated Appointment Note N/A Reason for Outreach Care Gap/HCC or Scheduling Wellness Visits Care Gaps due: Medicare Annual Wellness Visit Follow-up Appointment Flu Vaccine Patient Contacted: Unable or unnecessary to reach patient: Left message IMVU message sent HCC related Navigation Signature: Melissa Gold MA October 17, 2024 12:23 PM [facility] NotePatient Outreach (NETNAV) SHAZIA CHOU ([id number]) 1990 F Date Time Provider Department 10/17/24 MELISSA GOLD During your visit today, we recorded the following information about you: Melissa Gold MA 10/17/2024 12:28 PM Signed POPULATION HEALTH NAVIGATION OUTREACH Action/FYI Topic Due (Y or N) Comments Medicare Wellness Y PCP Follow up Y Mammogram N Colorectal Cancer Screening N A1C N Controlling BP N Dilated Retinal Exam (RONAK) N KED (UACR and eGFR) N HCC Y Flu Vaccine Y Care Everywhere Reviewed DONE MyChart Activation ACTIVE Updated Appointment Note N/A Reason for Outreach Care Gap/HCC or Scheduling Wellness Visits Care Gaps due: Medicare Annual Wellness Visit Follow-up Appointment Flu Vaccine Patient Contacted: Unable or unnecessary to reach patient: Left message IMVU message sent HCC related Navigation Signature: Melissa Gold MA October 17, 2024 12:23 PM Allergies As of Date: 10/17/2024 Noted Allergy Reaction ARIPIPRAZOLE 08/19/2022 1 - Mental Status Change 14 - Other: See Comments 16 - Unknown BUPROPION 07/16/2021 16 - Unknown COCONUT 11/20/2022 7 - Swelling Date Reviewed: 07/25/2024 Reviewed by: Melissa Hester LPN - Fully Assessed Reason for Visit: Population Health Navigation Outreach [3910] Cmt: Esequielfallon Holguin Emilie Prescriptions as of 10/17/2024 - lamoTRIgine (LAMICTAL) 25 mg tablet Take [...] mg by mouth daily at bedtime. - ezbzoctktkdu-npu-bkkq-FA-vit K (BARIATRIC MULTIVITAMINS) 45 mg iron- 800 mcg-120 mcg cap Take by mouth. Problem List As Of Date 10/17/2024 Noted Resolved Poor growth, affecting management of [...] Panic disorder [F41.0] 03/08/2024 Encounter Status:Closed by MELISSA GOLD on 10/17/24[facility]01-31[facility] NotePatient Education Mental and Behavioral Health Binge-Drinking Information, Adult Binge-drinking means drinking a large amount of alcohol in a short time. This is usually 5 drinks for men or 4 drinks for women, on one occasion. People who binge-drink do not always have an alcohol problem. However, binge- drinking can raise your risk of becoming dependent on alcohol. Becoming dependent on alcohol is called alcohol use disorder. Binge drinking can: ??? Cause health problems, such as heart disease, liver disease, or cancer. ??? Cause problems between you and family members or friends. ??? Lead to legal and financial problems. How can binge-drinking affect me? Friends and family may notice signs of binge-drinking or alcohol use disorder before you do. Binge-drinking can put you at risk for serious health problems, including: ??? Accidental injuries, such as alcohol poisoning or falls. ??? Developing alcohol use disorder. ??? Violence, such as sexual assault. ??? STIs (sexually transmitted infections). ??? Mental health problems, such as anxiety or depression. ??? Liver disease. ??? Heart disease. ??? Cancer of the liver, colon, esophagus, breast, or mouth. Binge-drinking can raise your risk of these problems: ??? Car accidents. ??? Problems with relationships and other social situations. ??? Legal or financial problems. ??? Unplanned pregnancies. If you binge-drink while , you and your baby may be at risk for health problems, including: ??? Miscarriage. ??? Stillbirth. ??? alcohol spectrum disorders (FASDs). ??? Sudden infant syndrome (SIDS). What actions can I take to prevent binge-drinking? Avoid drinking too much alcohol. ? If you drink alcohol: ? Limit how much you have to: ??? 0?1 drink a day for women who are not . ??? 0?2 drinks a day for men. ? Know how much alcohol is in a drink. In the [place] one drink equals one 12 oz bottle of beer (355 mL), one 5 oz glass of wine (148 mL), or one 1? oz glass of hard liquor (44 mL). ??? Encourage others around you not to binge-drink. ??? Become aware of situations and people who trigger your drinking behavior, and either avoid those or find a new way to deal with them. Find hobbies that you can do instead of drinking, such as exercising or outdoor activities. ??? Do not drink if: ? You are or trying to become . ? You plan to drive a vehicle. ? You plan to use machinery, such as a surgery specialist or power tool. ? You have a health condition that alcohol can make worse. ? You take medicines that are affected by alcohol, including prescription pain medicines. ? You are recovering from alcohol use disorder. ??? Develop skills to manage your moods and emotions so you do not need to drink to cope with them.This may include using stress reduction techniques such as: ? Deep breathing. ? Meditation or yoga. ? Exercise or playing sports. ? Keeping a stress diary. ? Listening to music. What are the benefits of controlling my drinking? Controlling your drinking or quitting drinking can make you feel better about your life. It can also: ??? Help you control your weight. ??? Make you more likely to get into good physical shape and stay fit. ??? Improve how your body processes vitamins and minerals. ??? Improve your health by lowering your blood pressure, cholesterol, triglycerides, and blood sugar (glucose). ??? Help you think more clearly and make better decisions. Where to find support: You can get support to stop binge-drinking from: ??? Your health care provider. They may recommend counseling if you drink too much. ??? The National Drug and Alcohol Treatment Referral Service: 8-729-515-HELP (7491) ??? Alcoholics Anonymous, Alcoholics Resource Center: ??? Substance Abuse and Mental Health Services Administration: samhsa.gov Where to find more information: ??? Centers for Disease Control and Prevention: cdc.gov ??? National Ridge on Alcohol Abuse and Alcoholism: niaaa.nih.gov/alcohol Contact a health care provider if: ??? You cannot control your drinking, or you think that your drinking might be out of your control. ??? You have unexpected physical problems that cause you distress, such as accidental injuries. Get help right away if: ??? You have thoughts about hurting yourself or others. Get help right away if you feel like you may hurt yourself or others, or have thoughts about takingyour own life. ??? Call 911. ??? Call the National Suicide Prevention Lifeline at or 024. This is open 24 hours aday. ??? Text the Crisis Text Line at 376849. Summary ??? Binge-drinking refers to drinking a large amount of alcohol in a short time. This is usually 5 drinks for men or 4 drinks for women, on one occasion. ??? Binge-drinking can lead to serious health problems, such as heart dise (more content not included)...[facility]01-17-2025 NotePatient Education Mental and Behavioral Health Chronic Pain, Adult Chronic pain is a type of pain that lasts or keeps coming back for at least 3?6 months. You may have headaches, pain in the abdomen, or pain in other areas of the body. Chronic pain may be related hardy illness, injury, or a health condition. Sometimes, the cause of chronic pain is not known. Chronic pain can make it hard for you to do daily activities. If it is not treated, chronic pain can lead to anxiety and depression. Treatment depends on the cause of your pain and how severe it is. You may need to work with a pain specialist to come up with a treatment plan. Many people benefit from two or more types of treatment to control their pain. Follow these instructions at home: Treatment plan Follow your treatment plan as told by your health care provider. This may include: ??? Gentle, regular exercise. ??? Eating a healthy diet that includes foods such as vegetables, fruits, fish, and lean meats. ??? Mental health therapy (cognitive or behavioral therapy) that changes the way you think or act in response to the pain. This may help improve how you feel. ??? Doing physical therapy exercises to improve movement and strength. ??? Meditation, yoga, acupuncture, or massage therapy. ??? Using the oils from plants in your environment or on your skin (aromatherapy). Other treatments may include: ??? Kvmi-oiw-zypdawz or prescription medicines. ??? Color, light, or sound therapy. ??? Local electrical stimulation. The electrical pulses help to relieve pain by temporarily stopping the nerve impulses that cause you to feel pain. ??? Injections. These deliver numbing or pain-relieving medicines into the spine or the area of pain. Medicines ??? Take qgfh-uyt-sjzqxsd and prescription medicines only as told by your health care provider. ??? Ask your health care provider if the medicine prescribed to you: ? Requires you to avoid driving or using machinery. ? Can cause constipation. You may need to take these actions to prevent or treat constipation: ? Drink enough fluid to keep your urine pale yellow. ? Take ndrl-qud-nzdqgiq or prescription medicines. ? Eat foods that are high in fiber, such as beans, whole grains, and fresh fruits and vegetables. ? Limit foods that are high in fat and processed sugars, such as fried or sweet foods. Lifestyle ??? Ask your health care provider whether you should keep a pain diary. Your health care provider will tell you what information to write in the diary. This may include: ? When you have pain. ? What the pain feels like. ? How medicines and other behaviors or treatments help to reduce the pain. ??? Consider talking with a mental health care provider about how to help manage chronic pain. ??? Consider joining a chronic pain support group. ??? Try to control or lower your stress levels. Talk with your health care provider about ways to do this. General instructions ??? Learn as much as you can about how to manage your chronic pain. Ask your health care provider if an intensive pain rehabilitation program or a chronic pain specialist would be helpful. ??? Check your pain level as told by your health care provider. Ask your health care provider if you should use a pain scale. Contact a health care provider if: ??? Your pain is not controlled with treatment. ??? You have new pain. ??? You have side effects from pain medicine. ??? You feel weak or you have trouble doing your normal activities. ??? You have trouble sleeping or you develop confusion. ??? You lose feeling or have numbness in your body. ??? You lose control of your bowels or bladder. Get help right away if: ??? Your pain suddenly gets much worse. ??? You develop chest pain. ??? You have trouble breathing or shortness of breath. ??? You faint, or another person sees you faint. These symptoms may be an emergency. Get help right away. Call 911. ??? Do not wait to see if the symptoms will go away. ??? Do not drive yourself to the hospital. Also, get help right away if: ??? You have thoughts about hurting yourself or others. Take one of these steps if you feel like you may hurt yourself or others, or have thoughts about taking your own life: ??? Go to your nearest emergency room. ??? Call 911. ??? Call the National Suicide Prevention Lifeline at or 671. This is open 24 hours aday. ??? Text the Crisis Text Line at 168025. This information is not intended to replace advice given to you by your health care provider. Make sure you discuss any questions you have with your health care provider. Document Revised: 04/22/2023 Document Reviewed: 03/25/2023 [employer] Patient Education ? 2023 [employer] 09-27-2024 History of Present illness Narrative* Corby Larsen, DO - 09/27/2024 2:00 PM EST Images from the original note were not included. Reason for Appointment: EMG Patient: Shazia Chou : 1990 EMG Computer: [employer] Referring Physician: Dr. Corby Larsen EMG: [place] electronics worker: Saúl Mccray RT(R) Office Location: [place] Reason for EMG: c/o weakness in bilateral arms/hands & bilateral legs/feet L>R, extreme painall over body. Hx of surgery to left elbow & left foot. No hx of DM. Not on blood thinners. Comments: Procedure was explained to the patient who expressed understanding. Patient appeared to have tolerated the test well despite some discomfort due to the nature of the test. documented in this encounterDoctors [facility] of [id number] History of Present illness Narrative* Corby Larsen DO - 09/21/2024 11:30 AM EST Images from the original note were not included. Chief Complaint: muscle weakness and imbalance Subjective Shazia Isreal Chou, 33 y.o., female Patient presents today for new symptoms of extreme muscle weakness and imbalance. Patient was last seen in September 2023 of intracranial hypertension and paresthesia. Patient states she has been bumping into things for a few months. Patient states she has been having generalized weakness that has been progressively getting worse. She states this is worse in her arms and legs. She also is having memory and concentration problems. She is forgetting things that she typically knows very well. She works at [employer] and will forget what goes on pizzas at times. She also reports lower back pain thatradiates down her left leg. She describes this as feeling like bone pain. She also reports hair loss, and discoloration in her hands. She states at times they will be a red/ purple at times especially when she is using them more. Review of Systems Constitutional: Negative for appetite change, fatigue and fever. Respiratory: Negative for cough, shortness of breath and wheezing. Cardiovascular: Negative for chest pain, palpitations and leg swelling. Gastrointestinal: Negative for abdominal pain, constipation, diarrhea and nausea. Musculoskeletal: Positive for gait problem. Negative for arthralgias and myalgias. Neurological: Positive for weakness and numbness. Negative for dizziness, tremors and headaches. Past Medical History: Diagnosis Date Borderline personality disorder (CMS/HCC) Depression (CMS/HCC) GERD (gastroesophageal reflux disease) Numbness Ulnar neuropathy Weakness Past Surgical History: Procedure Laterality Date SECTION, LOW TRANSVERSE GASTRIC BYPASS PARTIAL HYSTERECTOMY 11/2022 Family History Problem Relation Name Age of Onset Cancer Mother Diabetes Mother Hyperlipidemia Mother Hypertension Mother Stroke Mother ALS Father Social History Tobacco Use Smoking status: Every Day Types: Cigarettes Smokeless tobacco: Not on file Substance Use Topics Alcohol use: Yes Alcohol/week: 4.0 standard drinks of alcohol Types: 4 Standard drinks or equivalent per week Allergies: Abilify [aripiprazole], Coconut (cocos nucifera), and Buspirone Vitals: 09/21/24 1117 BP: 118/84 Pulse: 80 SpO2: 98% Body mass index is 30.12 kg/m . weight: 186 lb 9.6 oz Neurologic exam: Mental status: Awake, alert to person, place and time. Recent and remote memory are intact. Language is fluent without aphasia. Attention and concentration are normal. Fund of knowledge is appropriate for level of education. Cranial nerves: CN II: Visual acuity is normal. Visual bee full to confrontation. CN III, IV, : pupils equal round and reactive to light. Extraocular movements intact. No ptosis present. CN V: Facial sensation is normal. CN VII: Full and symmetric facial movement. CN VIII: Hearing is normal to finger rub bilaterally: CN IX and X: Palate elevates symmetrically. CN XI: Shoulder shrug is normal bilaterally. CN XII: Tongue is midline without atrophy or fasciculation. Motor: RUE Strength deltoid, , biceps , triceps , wrist extensors , wrist flexor , screen stretcher strength 5/5. LUE Strength deltoid , biceps , triceps , wrist extensors , wrist flexor , screen stretcher strength 5/5. RLE Strength illopsoas, quadriceps, tibialis anterior, and gastrocnemius strength 5/5. LLE Strength illopsoas, quadriceps, tibialis anterior, and gastrocnemius strength 5/5. Normal tone x4 extremities. Bulk is normal. Sensory: Sensation is intact to light touch throughout Four extremities. Reflexes: RUE biceps reflex 2+ brachioradialis reflex 2+ . LUE biceps reflex 2+ brachioradialis reflex 2+ . RLE knee reflex 2+ . LLE knee reflex 2+ . Gonzalez's sign negative. Coordination: Abnormal bilaterally Gait: Normal Review and summary of old records: CT and CT angiogram of the head and neck on 09/15/2024: No acute intracranial pathology. No evidence of stenosis, aneurysm or dissection or occlusion. HIV and b12 lab on 02/25/24: normal/non-reactive EMG of the bilateral lower extremities on 07/09/23: [place] [facility] [place]: Opening pressure of 23 cm of CSF, CSF testing was unremarkable MRI brain and MR venogram [place]11[place] [facility] unremarkable. Assessment/Plan Diagnoses and all orders for this visit: Ataxia It is my impression that patient has abnormal ayuxvu-dq-bagb testing and feels like she is walking into robb. I am certainly concerned given her age and recent flare-up of symptoms this could represent an event such as a clinically isolated syndrome or be related to demyelinating disease. This could be life- threatening or debilitating if not correctly identified and treated Plan: MRI of the brain with and without contrast. We will do [place] [facility] [place]. Paresthesia Patient continues to complain of paresthesias that seem to be worse in the left upper and left lower extremity. She has had some evaluation and B12 and HIV are unremarkable/ normal. EMG over a year ago was also unremarkable of the lower extremities but again, symptoms seem to be changing drastically and she seems to also described a Raynaud's type phenomenon in the upper extremities raising suspicion for potential autoimmune disease. Plan: Check CK, myoglobin and CYNDI with reflex EMG of the left upper and lower extremities to assess for pathology as above and determine type andseverity Psychiatric disease is also considered but the patient states she is not stressed. She did however quit her excessive drinking about 3-4 months ago which overall is good but I do wonder if it createdsome stressors for her from a withdrawal perspective. Previously the patient was thought to potentially have papilledema. She did undergo imaging with MRI and MRV as well as lumbar puncture. Opening pressure was normal. Patient's symptoms have largely resolved in September of 2023 when we went over the lumbar puncture results. Pt has been fully educated on their diagnosis, lab results, treatment options, follow up plan, return instructions, and discussion of mental health issues documented in this encounterDoctors Hospital of [id number] Evaluation + Plan note Diagnostic Tests Pending * Vitamin A Level 09/20/24 [facility] [id number] Radiology Diagnostic [facility] [place] [address] [place] [address] CT Scan Report Signed Patient: Shazia Chou MR#: [id number] : 1990 Acct:[id number] Age/Sex: 33 / F ADM Date: 5 Loc: ER Room: Type: [facility] ER Attending Dr: Copies to: Sailaja Anderson APRN~ Ordering Provider: Sailaja Anderson APRN Date of Service: 09/15/24 CT/CT angio head: weakness ([id number]) CT/CT angio neck: weakness ([id number]) CT/CT head/brain wo con: weakness CT head/brain wo con, CT angio neck, CT angio head 09/15/2024 3:41 PM SIGNS AND SYMPTOMS: Muscle fatigue, weakness, imbalance, history of pseudotumor CONTRAST: 80 mL of intravenous Isovue-370 TECHNIQUE: Multi-detector CT angiography axial slices of the head were obtained before and during intravenous administration of IV contrast material. Sagittal, coronal, and 3-D reconstructions were performed and viewed on a separate workstation. CT was performed with one or more of the following dose reduction techniques: Automated exposure control, adjustment of the mA and/or kV accordingto patient size, or use of iterative reconstruction technique. Stenoses were measured using the NASCET criteria. COMPARISON: None. FINDINGS: Noncontrast head CT: There is no shift of the midline structures, acute intracranial bleeding, mass effects, or evidenceof acute ischemia. The ventricular system is normal in size. The brainstem and the cerebellum are unremarkable. The infratemporal soft tissues and the visualized paranasal sinuses show no abnormality. There is flattening of the pituitary within the sella consistent with the history of pseudotumor cerebri. There is tortuosity of the optic nerves with prominence ofthe optic nerve sheath complex consistent with a history of pseudotumor measuring 1. The osseous structures in the skull base and the calvarium show noacute abnormality. CTA HEAD: The superior cerebellar arteries, posterior inferior cerebellar arteries, and the basilar artery are within normal limits. The posterior cerebral arteries areunremarkable. The intracranial segments of the internal carotid arteries are within normal limits. There are normal anterior and middle cerebral arteries. Anterior communicating artery is patent. Posterior communicating arteries are present. There is flattening of the posterior and lateral aspects of the transverse sinuses suggesting pseudotumor cerebri. No bony abnormalities are appreciated. CTA NECK: There is a normal three-vessel arch. The subclavian arteries are within normal limits. The vertebral arteries arise from the subclavian arteries and are normal in course and caliber up to the skull base. The common and internal carotid arteries are within normal limits. Visualized lung parenchyma is clear. No acute bony abnormalities are identified. The paraspinous soft tissues are within normal limits. CT/CT head/brain wo con IMPRESSION: No acute intracranial pathology. No evidence of focal stenosis, aneurysmal dilatation, dissection or occlusion. Findings are noted above that support the history of pseudotumor cerebri. Impression dictated by: Wiley Shetty M.D.09/15/2024 3:56 PM Dictation Location: [facility] Transcribed By: MARKY 09/15/24 1556 Dictated By: Wiley Shetty II, MD 09/15/24 1546 Signed By: 09/15/24 1556 [facility] Work Phone: 1([phone]) 953-550701-02-2025 NotePatient Education Mental and Behavioral Health Myofascial Pain Syndrome and Fibromyalgia Myofascial pain syndrome and fibromyalgia are both pain disorders. You may feel this pain mainly inyour muscles. ??? Myofascial pain syndrome: ? Always has tender points in the muscles that will cause pain when pressed (trigger points). The pain may come and go. ? Usually affects your neck, upper back, and shoulder areas. The pain often moves into your arms and hands. ??? Fibromyalgia: ? Has muscle pains and tenderness that come and go. ? Is often associated with tiredness (fatigue) and sleep problems. ? Has trigger points. ? Tends to be long-lasting (chronic), but is not life-threatening. Fibromyalgia and myofascial pain syndrome are not the same. However, they often occur together. If you have both conditions, each can make the other worse. Both are common and can cause enough pain and fatigue to make day-to-day activities difficult. Both can be hard to diagnose because their symptoms are common in many other conditions. What are the causes? The exact causes of these conditions are not known. What increases the risk? You are more likely to develop either of these conditions if: ??? You have a family history of the condition. ??? You are female. ??? You have certain triggers, such as: ? Spine disorders. ? An injury (trauma) or other physical stressors. ? Being under a lot of stress. ? Medical conditions such as osteoarthritis, rheumatoid arthritis, or lupus. What are the signs or symptoms? Fibromyalgia The main symptom of fibromyalgia is widespread pain and tenderness in your muscles. Pain is sometimes described as stabbing, shooting, or burning. You may also have: ??? Tingling or numbness. ??? Sleep problems and fatigue. ??? Problems with attention and concentration (fibro fog). Other symptoms may include: ??? Bowel and bladder problems. ??? Headaches. ??? Vision problems. ??? Sensitivity to odors and noises. ??? Depression or mood changes. ??? Painful menstrual periods (dysmenorrhea). ??? Dry skin or eyes. These symptoms can vary over time. Myofascial pain syndrome Symptoms of myofascial pain syndrome include: ??? Tight, ropy bands of muscle. ??? Uncomfortable sensations in muscle areas. These may include aching, cramping, burning, numbness, tingling, and weakness. ??? Difficulty moving certain parts of the body freely (poor range of motion). How is this diagnosed? This condition may be diagnosed by your symptoms and medical history. You will also have a physicalexam. In general: ??? Fibromyalgia is diagnosed if you have pain, fatigue, and other symptoms for more than 3 months,and symptoms cannot be explained by another condition. ??? Myofascial pain syndrome is diagnosed if you have trigger points in your muscles, and those trigger points are tender and cause pain elsewhere in your body (referred pain). How is this treated? Treatment for these conditions depends on the type that you have. ??? For fibromyalgia, a healthy lifestyle is the most important treatment including aerobic and strength exercises. Different types of medicines are used to help treat pain and include: ? NSAIDs. ? Medicines for treating depression. ? Medicines that help control seizures. ? Medicines that relax the muscles. ??? Treatment for myofascial pain syndrome includes: ? Pain medicines, such as NSAIDs. ? Cooling and stretching of muscles. ? Massage therapy with myofascial release technique. ? Trigger point injections. Treating these conditions often requires a team of health care providers. These may include: ??? Your primary care provider. ??? A physical therapist. ??? Complementary health care providers, such as massage therapists or acupuncturists. ??? A psychiatrist for cognitive behavioral therapy. Follow these instructions at home: Medicines ??? Take jpnj-ika-kvnpdrt and prescription medicines only as told by your health care provider. ??? Ask your health care provider if the medicine prescribed to you: ? Requires you to avoid driving or using machinery. ? Can cause constipation. You may need to take these actions to prevent or treat constipation: ? Drink enough fluid to keep your urine pale yellow. ? Take zvxu-hsk-axhqwsz or prescription medicines. ? Eat foods that are high in fiber, such as beans, whole grains, and fresh fruits and vegetables. ? Limit foods that are high in fat and processed sugars, such as fried or sweet foods. Lifestyle ??? Do exercises as told by your health care provider or physical therapist. ??? Practice relaxation techniques to control your stress. You may want to try: ? Biofeedback. ? Visual imagery. ? Hypnosis. ? Muscle relaxation. ? Yoga. ? Meditation. ??? Maintain a healthy lifestyle. This includes eating a healthy diet and getting enough sleep. ??? Do not use (more content not included)...[facility] 09-13-2024 Miscellaneous Notes* Result Encounter Note - Aleah Howard MD - 09/13/2024 9:45 AM EST Shazia your echocardiogram shows normal heart pump function and valves, we will discuss more at upcoming visit. documented in [facility] encounterMary[facility] Work Phone: [phone]) 494-429912-31-2024 Progress note* Result Encounter Note - Aleah Howard MD - 09/13/2024 9:45 AM EST Shazia your echocardiogram shows normal heart pump function and valves, we will discuss more at upcoming visit. [facility] Work Phone: [phone] 446-303512-23-2024 Telephone encounter Note* Telephone Encounter - Hilda Lemos RN - 09/05/2024 10:07 AM EST S- patient asked PCP to review labs B- recent ER visit 08/27/24 A- uploaded care everywhere. ER follow up phone call. R- Follow up scheduled 09/13 At [facility]. Lipase 271 at [place] Concerned about [employer] and Potter reports. Patient will screenshot and send her lab work from the other hospitals in a Mailsuite message CALL FOR ER FOLLOW UP: On this date and time, Shazia was seen at 08/27/24 at [facility] 08/22/24 at [facility] How is patient doing now? Lipase 271 at [place] Concerned about [place] and Potter reports. Patient will screenshot and send her [...] updated care everywhere. RX: none Hilda KHALIL dean of education of Dr. Carson [facility] [address] [place] [address] phone [phone] fax [facility]12-23-2024 Miscellaneous Notes* Telephone Encounter - Hilda Lemos RN - 09/05/2024 10:07 AM EST S- patient asked PCP to review labs B- recent ER visit 08/27/24 A- uploaded care everywhere. ER follow up phone call. R- Follow up scheduled 09/13 At [facility]. Lipase 271 at [place] Concerned about [place] and Potter reports. Patient will screenshot and send her lab work from the other hospitals in a Mailsuite message CALL FOR ER FOLLOW UP: On this date and time, Shazia was seen at 08/27/24 at [facility] 08/22/24 at [facility] How is patient doing now? Lipase 271 at [place] Concerned about [place] and [place] reports. Patient will screenshot and send her [...] updated care everywhere. RX: none Hilda KHALIL dean of education of Dr. Carson [facility] [address] [place], [place] [id number] phone [phone] fax documented in this encounterSelect [facility]-2024 NoteHNO ID: [id number] Author: MARY JO TRINIDAD RN Service: ? [...] FINDINGS/SUMMARY: None Patient Attributed To: QAE [facility] Action Taken: No action needed. Contact made with patient: No, Chart review only. Signature: Mary Jo Trinidad [facility] History of Present illness Narrative* Mary Jo Trinidad RN - 08/25/2024 2:56 PM EST [facility] EDYTA RN Patient identified by name and [...] determine where the ED encounters below took placeor what Ms. Chou was seen for. 06-12-24 07-02-24 07-22-24 08-15-24 08-22-24 OTHER FINDINGS/SUMMARY: None Patient Attributed To: QAE Payer: Mauricio HAMMOND Action Taken: No action needed. Contact made with patient: No, Chart review only. Signature: Mary Jo Trinidad RN documented in this encounterSelect [facility]12-12-2024 NotePatient Outreach (AMBG) SAHZIA CHOU ([id number]) 1990 F Date Time Provider Department 08/25/24 MARY JO TRINIDAD [facility] During your visit today, we recorded the following information about you: Mary Jo Trinidad RN 08/25/2024 3:00 PM Signed ACM EDYTA [...] applicable Hospital Observation 0 Not applicable ED 08-22-24 SNF / Acute Rehab / LTAC [...] - Swelling Date Reviewed: 07/25/2024 Reviewed by: Melissa Hester LPN - Fully Assessed Reason for Visit: CARMELINA EDYTA RN [[id number]] Cmt: ED Utilization Review per request of [...] mg by mouth daily at bedtime. - tajkhktsmwvi-eer-paol-FA-vit K (BARIATRIC MULTIVITAMINS) 45 mg iron- 800 [...] Encounter Status:Closed by MARY JO TRINIDAD on 08/25/24[facility]12[facility] Evaluation + Plan note Diagnostic Tests Pending * EBV Antibody Profile 08/18/24 * Jazmin Teixeira Ab Early Antigen 08/18/24 [facility] [phone] Telephone encounter Note* Telephone Encounter - Tevin Carson DO - 08/17/2024 3:12 PM EST The following approved medication requests have been transmitted electronically. Requested Prescriptions Pending Prescriptions Disp Refills lamoTRIgine (LAMICTAL) 25 mg tablet [Pharmacy Med Name: LAMOTRIGINE 25 MG TABLET] 360 tablet 0 Sig: Take 2 tablets by mouth two times a day. Tevin Carson DO [facility]12-04-2024 Miscellaneous Notes* Telephone Encounter - Tevin Carson DO - 08/17/2024 3:12 PM EST The following approved medication requests have been transmitted electronically. Requested Prescriptions Pending Prescriptions Disp Refills lamoTRIgine (LAMICTAL) 25 mg tablet [Pharmacy Med Name: LAMOTRIGINE 25 MG TABLET] 360 tablet 0 Sig: Take 2 tablets by mouth two times a day. Tevin Carson DO * Telephone Encounter - Jacinda Arreola MA - 08/17/2024 2:42 PM EST Pt last seen 07/25/24. Pharmacy electronically requesting refills as follows: Requested Prescriptions Pending Prescriptions Disp Refills lamoTRIgine (LAMICTAL) 25 mg tablet [Pharmacy Med Name: LAMOTRIGINE 25 MG TABLET] 360 tablet 1 Sig: TAKE 2 TABLETS BY MOUTH TWICE A DAY Please review and advise. Jacinda Arreola MA, documented in this encounterSelect [facility]12-04-2024 Telephone encounter Note * Telephone Encounter - Jacinda Arreola MA - 08/17/2024 2:42 PM EST Pt last seen 07/25/24. Pharmacy electronically requesting refills as follows: Requested Prescriptions Pending Prescriptions Disp Refills lamoTRIgine (LAMICTAL) 25 mg tablet [Pharmacy Med Name: LAMOTRIGINE 25 MG TABLET] 360 tablet 1 Sig: TAKE 2 TABLETS BY MOUTH TWICE A DAY Please review and advise. Jacinda Arreola MA, [facility]12-03-2024 NoteNormal sinus rhythm at 75 bpm normal intervals abnormal R wave progression cannot exclude previous anterior septal myocardial infarction, 1 ventricular premature beat is noted. Compared to the EKG from 07/01/2024, there was 1 ventricular premature beat noted on the current EKG.[id number] History of Present illness Narrative* Aleah Howard MD - 08/08/2024 3:15 PM EST Referred by Dr. Red ref. provider found for No chief complaint on file. History Of Present Illness: Shazia Chou is a 33 y.o. female presenting with concerns about her chest discomfort. She has a very strong family history, mother had her first heart attack at age 39. Father at age 54 of a massive myocardial event great- grandmother in her 50s. She is a mother of 4 kids ages 16 1210 and 8. She used to smoke 1 pack/day, but is trying to cut back. 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 She is status post partial hysterectomy. She has had gastric bypass 3 years ago. She lost 120 pounds. She denies symptoms of GERD. She denies nausea vomiting or diarrhea. Her chest discomfort is described as a tightening/burning sensation that comes and goes, associatedwith shortness of breath, sometimes associated with diaphoresis. [...] She has never used smokeless tobacco. She reportsthat she does not drink alcohol and does [...] lamoTRIgine (LAMICTAL) 50 mg, 2 times daily ollacfpiruto-rco-sjtm-FA-vit K (Bariatric Multivitamins) 45 mg iron- 800 [...] 2023 was reviewed. NEGAR globin 11.2 hematocrit 34.4MCV 88.7 platelet count 3 31,000 sodium 140 [...] already been to the emergency room in [place] for her symptoms. Follow-up after testing Discussed [...] my direction and personally dictated by me. Ihave reviewed the chart and agree that the record accurately reflects my personal performance of the history, physical exam, discussion and plan. documented in this encounterMary[facility] Hospital Work Phone: 1(761) 143-625711-25-2024 Instructions* Patient Instructions* Rita Knowles LPN - 08/08/2024 3:15 PM [...] Provided instructions on exercise. documented in this encounterMarymount Hospital Work Phone: 1(934) 335-247911-11-2024 NoteHNO ID: [id number] Author: TEVIN CARSON, DO Service: ? Author Type: Physician Type: Progress Notes Filed: 07/25/2024 16:57 Note Text: [facility] Visit Assessment and Plan 1. Bipolar affective [...] appointment. She is scheduled to see a case investigator at for this. ROS: As per HPI. [...] Mood and Affect: Mood normal. Behavior: Behavior normal.[facility]11-11-20[facility] History of Present illness Narrative* Tevin Carson - 07/25/2024 3:07 PM EST [facility] Medicine Visit Assessment and Plan 1. Bipolar [...] but does report that there are many dayswhen she wishes that something natural were to [...] to reassess and can consider further medication titrationuntil she is seen by psychiatry. She is [...] find a psychiatrist and has an appointment with1 next month. Her current regimen of medication [...] appointment. She is scheduled to see a case investigator at for this. ROS: As per HPI. [...] normal. Behavior: Behavior normal. documented in this encounterSelect [facility]-08-2024 Telephone encounter Note * Telephone Encounter - Tevin Carson DO - 07/22/2024 12:27 PM EST Agree with in office evaluation, needs to go to ED if symptoms worsen Tevin Carson DO [facility] Work Phone: [phone] 638-642711-08-2024 Miscellaneous Notes* Telephone Encounter - Tevin Carson DO - 07/22/2024 12:27 PM EST Agree with in office evaluation, needs to go to ED if symptoms worsen Tevin Carson DO * Telephone Encounter - Hilda Lemos RN - 07/22/2024 11:35 AM EST Images from the original note [...] to be done. I had a breast biopsydone and I hoped it was cancer. Maybe [...] money is very tight. My son is strugglingin school (age 10), he's autistic and he's clingy and sleeping in my bed at night. I deleted socialmedia because it was a trigger. 11. PATIENT SUPPORT: spouse and children, DBT therapist and psychiatrist. Patient's previous psychiatrist left the practice and she is unable to get an appointment with a new one until the end of August. 12. OTHER SYMPTOMS: depressed 13. : s/p hyster Protocols used: Anxiety and Panic [id number]-HA Request/Response - Patient scheduled for ThursdayJul [address] Carson (20 minutes). Patient is alsoscheduled for 40 minutes on ThursdayJul [address] Carson. I did not cancel the Thursday appt in case a 40 min follow up would be appropriate. Please advise if needed. documented in this encounterSelect Medical [facility]ty [facility]11-08-2024 Telephone encounter Note * Telephone Encounter - Hilda Lemos RN - 07/22/2024 11:35 AM EST Images from the original note [...] to be done. I had a breast biopsydone and I hoped it was cancer. Maybe [...] money is very tight. My son is strugglingin school (age 10), he's autistic and he's clingy and sleeping in my bed at night. I deleted socialmedia because it was a trigger. 11. PATIENT SUPPORT: spouse and children, DBT therapist and psychiatrist. Patient's previous psychiatrist left the practice and she is unable to get an appointment with a new one until the end of August. 12. OTHER SYMPTOMS: depressed 13. : s/p hyster Protocols used: Anxiety and Panic [id number]-ALHJA-OT Request/Response - Patient scheduled for ThursdayJul [address] Carson (20 minutes). Patient is alsoscheduled for 40 minutes on ThursdayJul [address] Carson. I did not cancel the Thursday appt in case a 40 min follow up would be appropriate. Please advise if needed. [facility]11-08-2024 Telephone encounter Note* Telephone Encounter - Hilda Lemos RN - 07/22/2024 11:34 AM EST See nurse triage encounter. [facility]11-08-2024 Miscellaneous Notes* Telephone Encounter - Hilda Lemos RN - 07/22/2024 11:34 AM EST See nurse triage encounter. documented in this encounterSelect Medical [facility]ty [facility]10-28-2024 Instructions* Patient Education - Ev Lindsey RT(R) - 07/11/2024 9:29 AM EDT Post procedure written instructions were given to patient. [facility]10-28-2024 Miscellaneous Notes* Patient Education - Ev Lindsey RT(Nirav) - 07/11/2024 9:29 AM EDT Post procedure written instructions were given to patient. documented in this encounterSelect Medical Specialty [facility]10-28-2024 NoteHNO ID: [id number] Author: EV LINDSEY RT(R) Service: Radiology Author Type: Protein Specialist Type: Patient Education Filed: 07/11/2024 09:29 Note Text: Post procedure written instructions were given to patient.[facility]10-21-2024 History of Present illness Narrative* Omar Soliman Mammo Tech - 07/04/2024 11:30 AM EDT Radiology Service Progress Note PATIENT NAME: Shazia Chou DATE OF SERVICE: July 04, 2024 TIME: 12:32 PM PATIENT IDENTITY VERIFICATION COMPLETED USING TWO (2) IDENTIFIERS: Name and Date of confirmedby patient verbally. FALL SCREENING: Has the patient had 2 falls in the last year or 1 fall with injury or currently using an Ambulatory Assistive Device (Walker, Cane, Wheelchair, Crutches, etc.)? No PATIENT GENDER DATA: Female. status: : No status: NO. PATIENT RELEVANT IMPLANT DATA REVIEWED: Yes PATIENT PRESENTS WITH AN IMPLANTABLE OR ATTACHED VICE PRESIDENT OF DEVELOPMENT: No RADIOLOGY DEPARTMENT: Mammography PERIPHERAL IV DATA: Not applicable SIGNED BY: Stewart Brewer July 04, 2024 12:32 PM documented in this encounterSelect Medical Specialty [facility]10-21-2024 NoteHNO ID: [id number] Author: OMAR SOLIMAN Mammo Tech Service: ? Author Type: Protein Specialist Type: Progress Notes Filed: 07/04/2024 12:32 Note [...] PATIENT PRESENTS WITH AN IMPLANTABLE OR ATTACHED VICE PRESIDENT OF DEVELOPMENT: No RADIOLOGY DEPARTMENT: Mammography PERIPHERAL IV DATA: Not applicable SIGNED BY: Omar Soliman [employer] Tech July 04, 2024 12:32 [facility]10-21-2024 NoteHNO ID: [id number] Author: FATUMA TYLER APRN.DESIGN TRANSFERRER Service: ? Author Type: Nurse Practitioner Type: Progress Notes Filed: 07/06/2024 08:25 Note Text: MEDICAL BREAST PATIENT NAME: Shazia Chou July 04, 2024 REFERRAL: She is self referred for an opinion regarding regarding LEFT breast painful lump and bloody nipple discharge HISTORY of PRESENT ILLNESS: Shazia Chou is a 33 year old premenopausal female who presents to the [facility] today for evaluation of left [...] Test performed by chemiluminescent immunoassay. Performed at [facility],[address],[place] [address] She takes a multivitamin daily. BMD: No PERSONAL BREAST HISTORY: Breast biopsy: No Breast cysts: No Breast surgery: No Breast cancer: No CANCER SURVEILLANCE: Mammograms: Date in [facility]: 12/09/23; results - Negative-Left breast only Breast MRI: Date in [facility]: 06/10/22; results - Negative Colonoscopy: No RISK [...] discussed with the Patient or Patient's Authorized Content Designer. As applicable, any other physician, advance practice provider, medical student, or other health professional student that will be observing or involved in (more content not included)...[facility]10-21-2024 History of Present illness Narrative* Fatuma Tyler APRN.DESIGN TRANSFERRER - 07/04/2024 10:52 AM EDT MEDICAL BREAST PATIENT NAME: Shazia Chou July 04, 2024 REFERRAL: She is self referred for an opinion regarding regarding LEFT breast painful lump and bloody nipple discharge HISTORY of PRESENT ILLNESS: Shazia Chou is a 33 year old premenopausal female who presents to the [facility] today for evaluation of left [...] palpation. She hasn't noticed any further bloody nippledischarge which she confirms was spontaneous She is [...] Test performed by chemiluminescent immunoassay. Performed at [facility],[address] [place] [address] She takes a multivitamin daily. BMD: No PERSONAL BREAST HISTORY: Breast biopsy: No Breast cysts: No Breast surgery: No Breast cancer: No CANCER SURVEILLANCE: Mammograms: Date in [facility]: 12/09/23; results - Negative-Left breast only Breast MRI: Date in [facility]: 06/10/22; results - Negative Colonoscopy: No RISK [...] discussed with the Patient or Patient's Authorized Content Designer. Asapplicable, any other physician, advance practice provider, medical student, or other health professional student that will be observing or involved in the sensitive examination for educational or training purposes was discussed with the Patient or Authorized Content Designer. The Patient or Authorized Content Designer has agreed to proceed with the sensitive [...] There is no skin dimpling with movement ofthe pectoralis. There is no nipple retraction. No [...] in 5-21% of patients with pathologic nipple dischargewho undergo biopsy. The risk of malignancy increases [...] pre-certification from her insurance company and is a dvised to ask about a deductible or co-pay. [...] of breast. She will call me in theinterim should she have any questions or concerns. My final recommendations will be communicated back to the requesting physician by way of shared medical record or letter via US mail. I spent a total of 45 minutes minutes on the date of the service which included preparing to see the patient, gdxj-ne-vxak patient care, completing clinical documentation, obtaining and/or reviewing separately obtained history, performing a medically appropriate examination, counseling and educating the patient/family/caregiver, ordering medications, tests, or procedures, and communicating results to the patient/family/caregiver. Fatuma Tyler APRN.IRENE Medical Breast Specialist July 04, 2024 CC: Tevin Carson [phone] [phone] documented in this encounterSelect Medical Specialty [facility]10-21-2024 Instructions* Patient Instructions* Naldo Borrego MA - 07/04/2024 10:52 AM EDT Thank you for trusting me with your breast care today. Please call or MyChart in 2-3 months with an update in your symptoms. With any changes in symptoms evaluated today such as worsening, pain, skin redness, warmth, drainage, palpable mass or other breast symptoms. Your Breast Care Team, Fatuma Tyler, IRENE, Medical Breast Specialist Sofia Shelton, MARCO [phone] ([place]) Naldo Borrego, Delivery Nurse [phone] ([place]) documented in this encounterSelect Medical Specialty [facility]10-18-2024 Instructions* Patient Instructions* Tevin Carson DO - 07/01/2024 11:41 AM EDT Try [...] tightness, pressure, aching, burning, numbness, fullness, or asqueezing feeling. This feeling can be similar to indigestion or heartburn. - You may have pain in your arm(s), shoulder, back, neck, jaw or stomach, trouble breathing or feeling short of breath, sweating or cold sweat , feeling full, indigestion, nausea or vomiting, feelinglightheaded, dizzy, very weak or anxious, and having a fast or irregular heartbeat. Follow up with me in 1 month documented in this encounterSelect Medical Specialty [facility]10-18-2024 NoteHNO ID: [id number] Author: TEVIN CARSON DO Service: ? Author Type: Physician Type: Progress Notes Filed: 07/01/2024 12:18 Note Text: [facility] Family Medicine Visit Assessment and Plan 1. [...] rhythm with sinus arrhythmia at 73 BPM, LA interval 138 ms, normal QRS, poor quality [...] Cognition and Memory: Cognition normal. Comments: Slightly anxiousAdena Pike [facility] Center10-18-2024 History of Present illness Narrative* Ledy Tevin, - 07/01/2024 11:03 AM EDT [facility] Family Medicine Visit Assessment and Plan 1. [...] rhythm with sinus arrhythmia at 73 BPM, LA interval 138 ms, normal QRS, poor quality EKG, but overall normal ST-T segments, QT 360 ms -Given overall normal EKG findings, patient saturating 99% on room air, normal cardiac exam and herbeing hemodynamically stable, I do not think that this warrants further workup or escalation of care at this time. It is very possible that the symptoms were sequela of recent detox and worsening anxiety. We discussed that if symptoms are to recur and not go away, or be associated with diaphoresis,nausea, radiation of pain, feeling of chest pressure [...] and also check PTH and vitamin D. Buzz review these at follow-up visit. - COMPREHENSIVE [...] facility, but left after 12 hours due toa bad experience and has been detoxing at home on her own. She has been experiencing a multitude ofsymptoms including chest pain, palpitations, worsening anxiety, insomnia, lightheadedness, blurry vision, and bodyaches. Her blood pressure was elevated at 1 point, so she was taking a blood pressuremedication and hydroxyzine to help through her detox. [...] normal. Comments: Slightly anxious documented in this encounterSelect Medical Specialty [facility]10-18-2024 Telephone encounter Note * Telephone Encounter - Naldo Borrego MA - 07/01/2024 10:23 AM EDT Shazia returned my call from yesterday about her appointment on Thursday. Patient stated that she had a mammogram and US done at [facility] recently because she felt a lump in [...] the size of the lump. She also statedthat she spontaneous bloody nipple discharge last year and the last time she noticed it was 8 months ago. She stated she is not sure if the nipple discharge and the lump are in related to one anotheror not. She plans to citrus picker disk with reports from [facility] before her appointment. I asked her to arrive 30 minutes early to appointment so that we can start uploading the disk and she can fillout paperwork. She was appreciative for the call and information. Naldo Borrego MA [facility]10-18-2024 Miscellaneous Notes* Telephone Encounter - Naldo Borrego MA - 07/01/2024 10:23 AM EDT Shazia returned my call from yesterday about her appointment on Thursday. Patient stated that she had a mammogram and US done at [facility] recently because she felt a lump in [...] the size of the lump. She also statedthat she spontaneous bloody nipple discharge last year and the last time she noticed it was 8 months ago. She stated she is not sure if the nipple discharge and the lump are in related to one anotheror not. She plans to citrus picker disk with reports from [facility] before her appointment. I asked her to arrive 30 minutes early to appointment so that we can start uploading the disk and she can fillout paperwork. She was appreciative for the call and information. Naldo Borrego MA * Telephone Encounter - Naldo Borrego MA - 06/30/2024 2:43 PM EDT I called and left a message for the patient regarding her appointment 07/04 [address] Mrs[address] Tyler in the breast center. I left my contact information for her to reach me. Naldo Borrego MA documented in this encounterSelect Medical Specialty [facility]10-17-2024 Telephone encounter Note * Telephone Encounter - Naldo Borrego MA - 06/30/2024 2:43 PM EDT I called and left a message for the patient regarding her appointment 07/04 [address] Tyler in the breast center. I left my contact information for her to reach me. Naldo Borrego MA [facility]09-16-2024 NoteHNO ID: [id number] Author: ORLANDO MARTINEZ MA Service: ? Author Type: Delivery Nurse Type: Progress Notes Filed: 05/30/2024 13:52 Note Text: POPULATION HEALTH NAVIGATION OUTREACH Action/FYI Patient called back and I scheduled her for a ED follow up with DESIGN TRANSFERRER in office. Also scheduled patient for est care appointment. Updated PCP field PER Navigation rules. ACM Reason for Outreach Community Monitoring/Network Navigator Pools AND Phone Line: ACM Patient Contacted: Spoke to patient/parent/or legal guardian Patient identified by name and : Yes Community Monitoring/Network Navigator Pools AND Phone Line actions taken: Patient scheduled: ER Follow-up Establish Care Appointment 05/31/2024 in [facility] with LISHA BIANCHI - ED follow up 07/01/2024 in [facility] with TEVIN CARSON - est care 08/05/[address] [facility] with ROBERTO MCKEON - Fhx of pancreatic cancer, Phx of pancreatic mass Action taken: Marked in OnBase for Schedulers PCP field updated Navigation Signature: Orlando Martinez MA May 30, 2024 1:44 [facility]09-16-2024 History of Present illness Narrative* Orlando Martinez MA - 05/30/2024 1:37 PM EDT POPULATION HEALTH NAVIGATION OUTREACH Action/FYI Patient called back and I scheduled her for a ED follow up with IRENE in office. Also scheduled patient for est care appointment. Updated PCP field PER Navigation rules. ACM Reason for Outreach Community Monitoring/Network Navigator Pools & Phone Line: ACM Patient Contacted: Spoke to patient/parent/or legal guardian Patient identified by name and : Yes Community Monitoring/Network Navigator Pools & Phone Line actions taken: Patient scheduled: ER Follow-up Establish Care Appointment 05/31/2024 in [facility] with LISHA BIANCHI - ED follow up 07/01/2024 in [facility] with TEVIN CARSON - est care 08/05/[address] [facility] with ROBERTO MCKEON - Fhx of pancreatic cancer, Phx of pancreatic mass Action taken: Marked in OnBase for Schedulers PCP field updated Navigation Signature: Orlando Martinez MA May 30, 2024 1:44 PM * Orlando Martinez MA - 05/30/2024 1:01 PM EDT POPULATION HEALTH NAVIGATION OUTREACH Action/FYI Reason for review or outreach: Chart Review Edyta Priority Emergency Department Utilization REQUESTED ACTION/FYI: Please see ED Utilization summary below: A follow-up appointment is not noted in patient's record. We are forwarding this patient to Network Navigation to schedule a [facility] ED 05/23/24 PCP follow-up appointment. Thank you 1st attempt- Called and left a voicemail for patient to call me back directly. Huixiaoert message sent Postponing for 2 days. ACM Reason for Outreach Community Monitoring/Network Navigator Pools & Phone Line: ACM Patient Contacted: Unable or unnecessary to reach patient: Left message weipasshart message sent Navigation Signature: Orlando Martinez MA May 30, 2024 1:01 PM * Lenora Yee RN - 05/30/2024 12:40 PM EDTSummary: ED Utilization review per request of payer ACM EDYTA RN Patient identified by name and date of . Reason for review or outreach: Chart Review Edyta Priority Emergency Department Utilization REQUESTED ACTION/FYI: Please see ED Utilization summary below: A follow-up appointment is not noted in patient's record. We are forwarding this patient to Network Navigation to schedule a [facility] ED 05/23/24 PCP follow-up appointment. Thank you Exclusion Criteria - Does not meet exclusion criteria ED DIAGNOSES/REASON(S) FOR ED USE: [facility] OTHER FINDINGS/SUMMARY: Unable to locate ED discharge summary in Care everywhere Patient Attributed To: QAE Payer: Mauricio HAMMOND Action Taken: Referrals/Routed: Population Health Navigation: Appointment. Router to COMMUNITY MONITORING PSS POOL [[phone]] Contact made with patient: No, Chart review only. Signature: Lenora KHALIL, RN, [facility] Primary Care Transitional Pro Shop Attendant [facility] [phone] documented in this encounterSelect Medical Specialty [facility]09-16-2024 NoteHNO ID: [id number] Author: ORLANDO MARTINEZ MA Service: ? Author Type: Delivery Nurse Type: Progress Notes Filed: 05/30/2024 13:07 Note Text: POPULATION HEALTH NAVIGATION OUTREACH Action/FYI Reason for review or outreach: Chart Review Edyta Priority Emergency Department Utilization REQUESTED ACTION/FYI: Please see ED Utilization summary below: A follow-up appointment is not noted in patient's record. We are forwarding this patient to Network Navigation to schedule a [facility] ED 05/23/24 PCP follow-up appointment. Thank you 1st attempt- Called and left a voicemail for patient to call me back directly. Karaz message sent Postponing for 2 days. [facility] Reason for Outreach Community Monitoring/Network Navigator Pools AND Phone Line: [facility] Patient Contacted: Unable or unnecessary to reach patient: Left message TelASIC Communicationst message sent Navigation Signature: Orlando Martinez MA May 30, 2024 1:01 [facility]09-16-2024 NoteHNO ID: [id number] Author: LENORA YEE RN Service: ? Author Type: Registered Nurse [...] patient to Network Navigation to schedule a [facility] ED 05/23/24 PCP follow-up appointment. Thank you Exclusion Criteria - Does not meet exclusion criteria ED DIAGNOSES/REASON(S) FOR ED USE: [facility] OTHER FINDINGS/SUMMARY: Unable to locate ED discharge summary in Care everywhere Patient Attributed To: KERMIT Payer: Mauricio STEPHANY Action Taken: Referrals/Routed: [facility] Health Navigation: Appointment. Router to [facility] [[id number]] Contact made with patient: No, Chart review only. Signature: Lenora KHALIL, RN, [facility] Primary Care Transitional Pro Shop Attendant [facility] [phone] [facility]09-16-20[facility] NotePatient Outreach (AMBCMG) SHAZIA CHOU ([id number]) 1990 F Date Time Provider Department 05/30/24 [...] patient to Network Navigation to schedule a [facility] ED 05/23/24 PCP follow-up appointment. Thank you Exclusion Criteria - Does not meet exclusion criteria ED DIAGNOSES/REASON(S) FOR ED USE: [facility] OTHER FINDINGS/SUMMARY: Unable to locate ED discharge summary in Care everywhere Patient Attributed To: KERMIT Payer: Mauricio HAMMOND Action Taken: Referrals/Routed: Population Health Navigation: Appointment. Router to COMMUNITY MONITORING PSS POOL [[id number]] Contact made with patient: No, Chart review only. Signature: Lenora KHALIL, RN, [facility] Primary Care Transitional Pro Shop Attendant [facility] [phone] Orlando Martinez MA 05/30/2024 1:07 PM Addendum POPULATION HEALTH NAVIGATION OUTREACH Action/FYI Reason for review or outreach: Chart Review Edyta Priority Emergency Department Utilization REQUESTED ACTION/FYI: Please see ED Utilization summary below: A follow-up appointment is not noted in patient's record. We are forwarding this patient to Network Navigation to schedule a [facility] ED 05/23/24 PCP follow-up appointment. Thank you 1st attempt- Called and left a voicemail for patient to call me back directly. Primavistahart message sent Postponing for 2 days. AC Reason for Outreach Community Monitoring/Network Navigator Pools AND Phone Line: [facility] Patient Contacted: Unable or unnecessary to reach patient: Left message weipasshart message sent Navigation Signature: Orlando Martinez MA May 30, 2024 1:01 PM Orlando Martinez MA 05/30/2024 1:52 PM Addendum POPULATION HEALTH NAVIGATION OUTREACH Action/FYI Patient called back and I scheduled her for a ED follow up with DESIGN TRANSFERRER in office. Also scheduled patient for est care appointment. Updated PCP field PER Navigation rules. ACM Reason for Outreach Community Monitoring/Network Navigator Pools AND Phone Line: ACM Patient Contacted: Spoke to patient/parent/or legal guardian Patient identified by name and : Yes Community Monitoring/Network Navigator Pools AND Phone Line actions taken: Patient scheduled: ER Follow-up Establish Care Appointment 05/31/2024 in [facility] with LISHA BIANCHI - ED follow up 07/01/2024 in [facility] with TEVIN CARSON - est care 08/05/[address] [facility] with ROBERTO MCKEON - Fhx of pancreatic [...] Swelling Date Reviewed: 03/08/2024 Reviewed by: Sofia Mcrae RN - Fully Assessed Reason for Visit: ACM EDYTA RN [[id number]] Cmt: ED Utilization review per request of [...] mg by mouth daily at bedtime. - rwlemiuwxqnz-eaq-ftgf-FA-vit K (BARIATRIC MULTIVITAMINS) 45 mg iron- 800 mcg-120 mcg cap Take by mouth. Problem List As Of Date 05/30/2024 Noted Resolved Poor growth, affecting management of moth*07/03/2008 03/08/2024 Idiopathic intracranial hypertension [G93.2] 11/20/2022 Primary hypertension [I10] 11/20/2022 03/08/2024 Depression [F32.A] 11/20/2022 Hx of gastric bypass [Z98.84] 11/20/2022 H/O foot surgery [Z98.890] 11/20/2022 Bipolar affective d (more content not included)...[facility] 05-12-2024 NoteHNO ID: [id number] Author: ?, ?, ? Service: ? Author Type: ? Type: Progress Notes Filed: 05/12/2024 17:42 Note Text: MCM sent to pt advising her that her Breast MRI has still not been scheduled. Pancreas was completed. Kimberli Malave PSSAdena [facility] Center08-13-2024 History of Present illness Narrative* Lauren Capellan LPN - 04/26/2024 3:43 PM EDT Outreach message sent documented in this encounterSelect Medical Specialty Hospital [facility]08-13-2024 NoteHNO ID: [id number] Author: LAUREN CAPELLAN LPN Service: ? Author Type: LICENSED NURSE Type: Progress Notes Filed: 04/26/2024 15:43 Note Text: Outreach message sentAdena Pike Medical Center08-13-2024 NotePatient Outreach (JAYCEEMOC) SHAZIA CHOU ([id number]) 1990 F Date Time Provider Department 04/26/24 ELIA BAIRESMOC During your visit today, we recorded the following information about you: Lauren Capellan LPN 04/26/2024 3:43 PM Signed Outreach message sent Allergies As of Date: 04/26/2024 Noted Allergy Reaction ARIPIPRAZOLE 08/19/2022 1 - Mental Status Change 14 - Other: See Comments 16 - Unknown BUPROPION 07/16/2021 16 - Unknown COCONUT 11/20/2022 7 - Swelling Date Reviewed: 03/08/2024 Reviewed by: Sofia Mcrae RN - Fully Assessed Prescriptions as of [...] mg by mouth daily at bedtime. - ijhujjuinayl-iyl-dbab-FA-vit K (BARIATRIC MULTIVITAMINS) 45 mg iron- 800 [...] 03/08/2024 Encounter Status:Closed by LAUREN CAPELLAN on 04/26/24[facility] 03-08-2024 Hospital Discharge instructions Patient Education 03/08/2024 15:36:59 Lumbosacral Strain Lumbosacral Strain Lumbosacral strain is an injury that causes pain in the lower back (lumbosacral spine). This injuryusually happens from overstretching the muscles or ligaments [...] Follow these instructions at home: Medicines Take oojd-bvl-nbzykco and prescription medicines only as told by your health care provider. Ask your health care provider if the medicine prescribed to you: ?Requires you to avoid driving or using heavy machinery. ?Can cause constipation. You may need to take these actions to prevent or treat constipation: ?Drink enough fluid to keep your urine pale yellow. ?Take ugtj-tkj-weuhfhk or prescription medicines. ?Eat foods that are [...] told by your health care provider. Use theheat source that your health care provider recommends, [...] provider. Document Revised: 12/08/2022 Document Reviewed: 01/24/2020 [employer] Patient Education 2022 [employer] 03/08/2024 15:36:59 Head Injury, Adult Head Injury, [...] before the first one has healed, can bedangerous. Ask your health care provider when it is safe for you to return to your regular activities, including work or school. Ask your health care provider for a ljnl-ic-ubuq plan for gradually returning to activities. Ask [...] your friends, family, a trusted colleague, and refractory worker about your injury, symptoms, and restrictions. Have them watch for any new or worsening problems. General instructions Take bdci-ibi-clzkrku and prescription medicines only as told by [...] provider. Document Revised: 07/13/2020 Document Reviewed: 07/13/2020 [employer] Patient Education 2022 [employer] 03/08/2024 15:36:59 Muscle Strain Muscle Strain A [...] is not too tight. General instructions Take irkv-eub-fkuxhom and prescription medicines only as told by [...] you need help quitting, ask your health careprovider. Ask your health care provider when it [...] provider. Document Revised: 11/18/2021 Document Reviewed: 11/18/2021 [employer] Patient Education 2022 [employer] Follow Up Care 03/08/2024 13:07:25 With:David Zazueta Address: [address], [address] [place] [phone] Business (1) When:03/11/2024 15:24:14 With:Jennie Durand Address: [address], [facility] [address] [place] [address]- Business (1) When:Within 3 Day(s) [facility]06-25-2024 History of Present illness Narrative* Sofia Mcrae RN - 03/08/2024 10:00 AM EDT Radiology Service Progress Note DATE OF SERVICE: [...] SITE APPEARANCE: Clean,Dry and Intact SIGNATURE: Sofia Mcrae RN PATIENT NAME: Shazia Chou DATE: March 08, 2024 TIME: 10:01 AM * Mirlande Diaz, environmental services coordinator - 03/08/2024 10:00 AM EDT Radiology Service Progress Note PATIENT NAME: Shazia Chou DATE OF SERVICE: March 08, 2024 TIME: 10:35 AM PATIENT IDENTITY VERIFICATION COMPLETED USING TWO (2) IDENTIFIERS: Name and Date of confirmedby patient verbally. FALL SCREENING: Has the patient had 2 falls in the last year or 1 fall with injury or currently using an Ambulatory Assistive Device (Walker, Cane, Wheelchair, Crutches, etc.)? No PATIENT GENDER DATA: Female. status: : No status: NO. PATIENT RELEVANT IMPLANT DATA REVIEWED: Yes PATIENT PRESENTS WITH AN IMPLANTABLE OR ATTACHED VICE PRESIDENT OF DEVELOPMENT: No RADIOLOGY DEPARTMENT: MR; Exam(s) Completed: Body: Pancreas/Biliary PERIPHERAL IV DATA: Site assessment: Clean,Dry and Intact, Site disposition Discontinued SIGNED BY: MARIXA Tovar March 08, 2024 10:35 AM documented in this encounterSelect Medical Specialty Hospital [facility]06-25-2024 NoteHNO ID: [id number] Author: MIRLANDE DIAZ MRI Tech Service: Radiology Author Type: Protein Specialist Type: Progress Notes Filed: 03/08/2024 10:36 Note [...] PATIENT PRESENTS WITH AN IMPLANTABLE OR ATTACHED VICE PRESIDENT OF DEVELOPMENT: No RADIOLOGY DEPARTMENT: MR; Exam(s) Completed: Body: Pancreas/Biliary PERIPHERAL IV DATA: Site assessment: Clean,Dry and Intact, Site disposition Discontinued SIGNED BY: MARIXA Tovar March 08, 2024 10:35 [facility]06-25-2024 NoteHNO ID: [id number] Author: ZAPPONE, SOFIA, RN Service: Nursing Author Type: Registered Nurse [...] SITE APPEARANCE: Clean,Dry and Intact SIGNATURE: Sofia Mcrae RN PATIENT NAME: Shazia Chou DATE: March 08, 2024 TIME: 10:01 [facility]06-25-2024 Instructions* Patient Instructions* Elia Baires DO - 03/08/2024 8:47 AM EDT 1) Schedule appointment with Austin Mata to discuss Adipex. 2) Schedule MRI of breast 3) I can refill the klonopin as needed. 4) Try steroid as needed twice daily 5) Follow-up in [address] Carson to establish care documented in this encounterSelect Medical Specialty Hospital [facility]06-25-2024 NoteHNO ID: [id number] Author: ELIA BAIRES DO Service: ? Author [...] was able to establish with psychiatry at [facility]. Says they stopped her Rexulti and switch to Lamictal 75 mg daily. Says this has dramatically improved her symptoms. Currently taking duloxetine 60 mg twice daily and trazodone 50 mg at bedtime. She says that she has only needed to use her clonazepam a few times a week. H (more content not included)...[facility]06-[facility] History of Present illness Narrative* Elia Baires DO - 03/08/2024 8:16 AM EDT ASSESSMENT/PLAN: 1. Routine health maintenance - ICD9: V70.0, ICD10: Z00.00 (primary diagnosis) - Counseled on healthy diet and regular exercise - Discussed need and benefit for weight loss. BMI 30.90 kg/(m^2) - Smoking cessation encouraged; discussed risks to health and quitting strategies. Patient is readyto quit and varenicline (Chantix) prescribed - Counseled patient on limiting alcohol intake to 1 drink per day - Follow up for annual exam in one year 2. Class 1 obesity due to excess calories without serious comorbidity with body mass index (BMI) of30.0 to 30.9 in adult - ICD9: 278.00, [...] Austin Leon but could not guarantee he wouldbe able to prescribe. She will schedule follow-up. - ENDOCRINE MEDICAL WEIGHT MANAGEMENT 3. Family history of pancreatic cancer - ICD9: V16.0, ICD10: Z80.0 4. Family history of cancer - ICD9: V16.9, ICD10: Z80.9 - She has significant family history of pancreatic cancer in father and multiple relatives. 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 Says they stopped her Rexulti and [...] suspected that this is retroperitoneal cyst. Dr. Aguirre recommended serial imaging for February which she [...] updated today in the History tab of [facility]. REVIEW OF SYSTEMS: All other reviewed and [...] Dr. Elia Baires DO documented in this encounterSelect Medical Specialty Hospital [facility]04-22-2024 Instructions* Patient Instructions* Elia Baires DO - 01/04/2024 10:16 AM EDT 1) Give urine sample today. 2) Placed lab orders. Fast for 12 hours then get labs. 3) I would follow-up with your psychiatrist in January 4) Physical in 1-2 months. documented in this encounterSelect Medical Specialty Hospital [facility]04-22-2024 NoteHNO ID: [id number] Author: ELIA BAIRES DO Service: ? Author [...] She says that she is originally from [facility] however came up to here [...] psychiatrist at [facility] in [place]. She also sees a counselor weekly. Current [...] No psychosis or maryam. Dr. Elia Baires, [facility]04-22-2024 History of Present illness Narrative* Elia Baires, DO - 01/04/2024 9:46 AM EDT ASSESSMENT/PLAN: 1. Panic disorder - ICD9: 300.01, [...] with a new psychiatrist. She agreed to [facility] drug screen but noted that it will be positive for cannabis and the lorazepam she recently received in the emergency department. Can fill prescription if negative for all other drugs. Continue d uloxetine 60 mg twice daily and Rexulti 4 [...] She says that she is originally from [facility] [place] however came up to here [...] to prescribe these. She says that she hastried hydroxyzine and buspirone. Hydroxyzine was not effective and BuSpar caused severely elevated blood pressures. She says that pain attacks are so severe that she is unable to leave the house manydays in has missed work. She is planning to establish with a new psychiatrist at [facility] in [place]. She also sees a counselor weekly. Current medication regimen is duloxetine 60 mg twice daily, Rexulti 4 mg daily, trazodone 50 mg nightly. She denies use of illegal drugs. Says that she was prescribed lorazepam at her recent ED visit. Alexy endorses use of cannabis. Hx of intracranial [...] affect. Pleasant demeanor. Not denies severe depression orSI/HI. No psychosis or maryam. Dr. Elia Baires DO documented in this encounterSelect Medical Specialty [facility]01-05-2024 Hospital Discharge instructions* Discharge Instructions* Gamaliel Vickers DO - 09/18/2023 8:29 AM [...] questions, PLEASE call your doctor or the [facility] at documented [facility] History of Present illness Narrative* Ce Bustamante RN - 09/16/2023 1:25 PM EST PAT phone call for /EGD completed with pt. Date/time/location (entrance C) of surgery/procedure verified with pt. NPO after MN status verified with pt. Need for driver manager ( ) verified with pt. Instructed pt to take a shower the AM of surgery/procedure and to avoid lotions, creams, jewelry. Encouraged pt to avoid artificial nails and/or nailpolish. Instructed pt to take BP meds with a small sip of water prior to procedure/surgery. documented in this encounterBON [facility]30[facility] Evaluation note* Encounter Date Diagnosis Assessment Notes Treatment Notes Treatment Clinical Notes Jul, Pancreatic cyst (ICD-10 - K86.2) Internal Gaming Other 10-25-2023 Evaluation note* Encounter Date Diagnosis [...] stop smoking. Jun, Smoker (ICD-10 - F17.200) Internal Gaming Other 09-27-2023 NoteHNO ID: [id number] Author: Eileen Alvarez MD Service: ? Author Type: Physician Type: Progress Notes Filed: 06/10/2023 3:39 PM Note Text: [facility] Follow Up / Established Virtual Visit I have communicated my name and active licensure. The patient's identity and physical location were verified at the time of this visit. Either the patient or their legal teleservices representative has been informed of the risks [...] due to congenital deformity, seen in the [facility] for: Idiopathic intracranial hypertension [...] due to congenital deformity, seen in the [facility] for: 1. Idiopathic intracranial [...] she agreed. She needs to follow with bottle selector every 6 months. In some patients with [...] her eyes. She has never seen an bottle selector. CSF protein 24, Glu 55, Pro 28, [...] cognition, memory, speech. Cr (more content not included)...[facility] [id number] Miscellaneous Notes * Telephone Encounter - Clara [...] A DAY IN A WEEK Pharmacy Name: [facility] Pharmacy Phone #: [phone] Fabby Cassidy documented in this encounterSelect Medical Specialty Hospital [facility]07-06-2023 Evaluation + Plan note Diagnostic Tests Pending * Zinc Level 03/19/23 * PTH Intact 03/19/23 * Vitamin A Level 03/19/23 * Vitamin B1 03/19/23 Future Scheduled Tests Laboratory* CBC w/ Auto Diff 07/21/22 Radiology* MA Mamm Screen w/CAD if perf and 3D Tanmay 04/21/22 [facility]05-04-2023 Hospital Discharge instructions Patient Education 01/15/2023 13:37:29 [...] Follow these instructions at home: Medicines Take ujzk-eel-jdtdkft and prescription medicines only as told by [...] provider. Document Revised: 11/14/2021 Document Reviewed: 11/14/2021 [employer] Patient Education 2022 [employer] Follow Up Care 01/15/2023 10:48:45 With:Jennie Durand Address: [address], [address] [place] [address]- Business (1) When:01/18/2023 13:32:37 [facility]05-04-2023 Evaluation + Plan noteExtracted from: Title:ED Note [...] w/CAD if perf and 3D Tanmay 04/21/22 [facility]03-31-2023 Miscellaneous Notes* Telephone Encounter - Clara Durbin RN - 12/12/2022 3:03 PM EDT Spoke with patient and informed that per [facility] pharmacy, there are remaining refills on her [...] A DAY IN A WEEK Pharmacy Name: [facility] Pharmacy Phone #: [phone] Fabby Cassidy documented in this encounterSelect Medical Specialty [facility]03-24-2023 Hospital Discharge instructions Patient Education 12/05/2022 12:15:12 Post Op Patient Instructions - FT (CUSTOM) 12/05/2022 12:15:12 COMPLEX CARE NURSE - Post Hysterectomy/Laparotomy/Major Surgery-Thiago (CUSTOM) Instructions post [...] 11/04/2022 14:01:47 With:Gal Das Address: [address], [address] [place] [address]- Business (1) When:6 weeks With:Gal Das Address: [address] [place] [address]- Business (1) When:2 weeks Comments:Call for any problems. [facility]03-24-2023 Evaluation + Plan noteExtracted from: Title:ANES Post-operative Note - General Author: Vu Maria Jr., DO Date:12/05/22 Plan Transfer/Discharge: Transfer/Discharge Discharge when meets criteria ( From PACU to Ambulatory Surgery Unit, and To home ). Extracted from: Title:ANES Pre-operative Note - Adult Author:Vu Chowdhury Jr., DO Date:12/05/[address] [place] [employer] (ASA) physical status classification: Class II. Anesthetic Preoperative Plan: Anesthesia General. Future Appointments Appointment Date:01/02/2023 10:00:00 AM Scheduled Provider:Nakia Shah Location:[facility] Appointment Type: Open Future Scheduled Tests Laboratory* CBC w/ Auto Diff 07/21/22 Radiology* MA Mamm Screen w/CAD if perf and 3D Tanmay 04/21/22 [facility]03-09-2023 NoteHNO ID: [id number] Author: Eileen Alvarez MD Service: ? Author Type: Physician Type: Progress Notes Filed: 11/20/2022 10:33 AM Note Text: [facility] New Patient Evaluation Consulting [...] due to congenital deformity, seen in the [facility] for: Idiopathic intracranial hypertension [...] her eyes. She has never seen an bottle selector. CSF protein 24, Glu 55, Pro 28, [...] due to congenital deformity, seen in the [facility] for: 1. Idiopathic intracranial [...] she agreed. She needs to follow with bottle selector every 6 months. In some patients with [...] --start acetazolamide (diamox 500m (more content not included)...[id number]* Patient Instructions* Eileen Alvarez MD - [...] in this encounter[facility] History of Present illness Narrative* Eileen Alvarez MD - 11/20/2022 7:57 AM EST Images from the original note were not included. [facility] New Patient Evaluation Consulting [...] due to congenital deformity, seen in the [facility] for: Idiopathic intracranial hypertension [...] her eyes. She has never seen an bottle selector. CSF protein 24, Glu 55, Pro 28, [...] due to congenital deformity, seen in the [facility] for: 1. Idiopathic intracranial [...] she agreed. She needs to follow with bottle selector every 6 months. In some patients with [...] Take 40 mg by mouth once daily. fmdaxpzremrk-hpj-jyrv-FA-vit K (BARIATRIC MULTIVITAMINS) 45 mg iron- 800 [...] % Lymph% 20 15.9 - 47.3 % Potter% 6 0.0 - 12.0 % Eosin% 3 0.0 - 6.6 % Baso% 1 0.0 - 1.2 % Abs Neut (ANC) 7.64 (H) 1.45 - 7.50 k/uL Abs Lymph 2.18 1.00 - 4.00 K/uL Abs Potter 0.65 0.00 - 0.86 k/uL Abs Eosin [...] which included preparing to see the patient, tejr-ws-wtqp patient care, completing clinical documentation, obtaining and/or reviewing separately obtained history, performing a medically appropriate examination, counseling and educating the pat ient/family/caregiver, ordering medications, tests, or procedures, independently interpreting results (not separately reported), communicating results to the patient/family/caregiver, and care coordination (not separately reported). Eileen Alvarez MD documented in this encounterSelect [facility]23 Hospital Discharge instructions Patient Education 11/03/2022 13:28:28 [...] height. This can be done either in [place] ([place] or metric measurements. Note that charts are available to help you find your BMI quickly and easily without having to do these calculations yourself. To calculate your BMI in [place] ([place] measurements, your health care provider will: [...] medical problems. BMI can be measured using [place] measurements or metric measurements. To interpret your [...] 05/12/2005 Document Revised: 08/13/2018 Document Reviewed: 07/14/2018 [employer] Patient Education 2020 [employer] 11/03/2022 13:28:26 Tobacco Use Disorder Tobacco Use [...] reduces withdrawal symptoms. NRT is available as: ?Bgkz-oyv-dzmptyq gums, lozenges, and skin patches. ?Prescription mouth [...] recovery for many people. General instructions Take xuin-bvo-isvduwh and prescription medicines only as told by your health care provider. Check with your health care provider before taking any new prescription or pmtd-ppn-dyhcuqk medicines. Decide on a friend, family member, or smoking quit-line (such as 6-651-MKBJ-NOW in the [place] that you can call [...] 05/06/2005 Document Revised: 08/18/2018 Document Reviewed: 08/18/2018 [employer] Patient Education 2020 [employer] 11/03/2022 13:28:23 Alcohol Abuse and Dependence Information, [...] for Disease Control and Prevention: www.cdc.gov National [place] on Alcohol Abuse and Alcoholism: www.niaaa.nih.gov Alcoholics [...] 08/25/2017 Document Revised: 12/20/2019 Document Reviewed: 11/08/2019 [employer] Patient Education 2020 [employer] 11/03/2022 13:28:19 BMI for Adults BMI for [...] height. This can be done either in [place] ([place] or metric measurements. Note that charts are available to help you find your BMI quickly and easily without having to do these calculations yourself. To calculate your BMI in [place] ([place] measurements, your health care provider will: [...] medical problems. BMI can be measured using [place] measurements or metric measurements. To interpret your [...] 05/12/2005 Document Revised: 08/13/2018 Document Reviewed: 07/14/2018 [employer] Patient Education 2020 [employer] 10/27/2022 11:56:27 Alcohol Abuse and Dependence Information, [...] for Disease Control and Prevention: www.cdc.gov National [place] on Alcohol Abuse and Alcoholism: www.niaaa.nih.gov Alcoholics [...] 08/25/2017 Document Revised: 12/20/2019 Document Reviewed: 11/08/2019 [employer] Patient Education 2020 [employer] Follow Up Care 10/15/2022 11:28:56 With:Nakia Shah Address: [address] [place] [address] [place] [address]- When:Within 2 Month(s) Comments:f/u smoking cessation and BP [facility] 01-11-2023 Hospital Discharge [...] reduces withdrawal symptoms. NRT is available as: ?Wgvk-yjv-aniysog gums, lozenges, and skin patches. ?Prescription mouth [...] recovery for many people. General instructions Take mofu-rzu-pziirgv and prescription medicines only as told by your health care provider. Check with your health care provider before taking any new prescription or ussv-zmd-elmkdqg medicines. Decide on a friend, family member, or smoking quit-line (such as 4-402-OQAD-NOW in the [place] that you can call [...] 05/06/2005 Document Revised: 08/18/2018 Document Reviewed: 08/18/2018 [employer] Patient Education 2020 [employer] 09/24/2022 07:23:47 BMI for Adults BMI for [...] height. This can be done either in [place] ([place] or metric measurements. Note that charts are available to help you find your BMI quickly and easily without having to do these calculations yourself. To calculate your BMI in [place] ([place] measurements, your health care provider will: [...] medical problems. BMI can be measured using [place] measurements or metric measurements. To interpret your [...] 05/12/2005 Document Revised: 08/13/2018 Document Reviewed: 07/14/2018 [employer] Patient Education 2020 [employer] 09/24/2022 07:23:45 Alcohol Use Disorder Alcohol Use [...] centers. Follow these instructions at home: Take lqex-toz-lpmuxfp and prescription medicines only as told by [...] 10/08/2005 Document Revised: 08/13/2018 Document Reviewed: 05/28/2017 [employer] Patient Education 2020 [employer] 09/24/2022 07:23:42 Borderline Personality Disorder, Adult Borderline [...] with BPD should do these things: Take jwwu-mii-cswkoba and prescription medicines only as told by [...] important. Where to find more information National [place] on Mental Illness: www.marivel.org [place] National [place] of Mental Health: www.nimh.nih.gov Contact a health [...] 12/16/2011 Document Revised: 08/13/2018 Document Reviewed: 11/05/2017 [employer] Patient Education 2020 [employer] 09/24/2022 07:23:39 Managing Bipolar Disorder Managing Bipolar [...] Follow these instructions at home: Medicines Take kfwt-wgy-yrehoqh and prescription medicines only as told by your health care provider or pharmacist. Ask your pharmacist what ljtj-ajt-tbxuezt cold medicines you should avoid. Some medicines [...] services is a problem, search for a [facility]. Public mental health [...] 12/31/2017 Document Revised: 12/23/2019 Document Reviewed: 12/31/2017 [employer] Patient Education 2019 [employer] Follow Up Care 09/16/2022 13:23:11 With:Aimee Walker CNP Address: [address] [place], [place] [address] [address] [phone] When:3 months [facility] 12-09-2022 Hospital Discharge instructions Patient Education 08/22/2022 11:12:56 Tension Headache, Adult, Cnnm-tf-Svkn Tension Headache, Adult A tension headache is pain, pressure, or aching in your head. Tension headaches can last from 30 minutes to several days. Follow these instructions at home: Managing pain Take sgzo-lsm-akrqnwt and prescription medicines only as told by [...] 11/25/2010 Document Revised: 08/13/2018 Document Reviewed: 12/11/2017 [employer] Patient Education 2020 [employer] Follow Up Care 08/14/2022 12:38:29 With:Rita SNOWDEN, IGGY Roberson, PED Address: [facility] [address] [place], [place] [address] When:1 month only if needed Comments:40 mins [facility] 12-05-2022 Hospital Discharge [...] feet clean and dry. General instructions Take hjhu-mkl-ekzdosl and prescription medicines only as told by [...] 09/26/2016 Document Revised: 06/16/2019 Document Reviewed: 06/16/2019 [employer] Patient Education 2020 [employer] 08/18/2022 19:56:48 Foot Sprain Foot Sprain A [...] fully hardened. This may takeseveral hours. Take dztl-zht-uspkhcv and prescription medicines only as told by [...] 02/20/2003 Document Revised: 09/04/2018 Document Reviewed: 09/04/2018 [employer] Patient Education 2020 [employer] 08/18/2022 19:56:48 Elastic Bandage and RICE Therapy [...] limityour activities and whether you should start yyder-eu-owgwdf exercises for your injury. Ice Ice your [...] 02/20/2003 Document Revised: 05/21/2018 Document Reviewed: 05/21/2018 [employer] Patient Education 2020 [employer] Follow Up Care 08/18/2022 17:21:15 With:Hilton Gillis Address: [address] [place], [place] [id number] Business (1) When:08/21/2022 19:10:21 With:Aimee Walker Address:Unknown When:Within 3 Day(s) [facility]29-2022 Procedure [facility]11-29-2022 Progress note Author Lizzeth Malave [facility] August 12, 2022 10:46am Note Date/Time August 12, 2022 10:45am [facility] [address] [place], [place] [id number] Hospitalist Progress Note Signed Patient: Shazia Chou MR#: [id number] : 1990 Acct:[id number] Age/Sex: 31 / F Adm Date: 2 Loc: 4N Room: 4U1087-5 Type: ADM INOo Attending Dr: Lizzeth Malave MD Copies to: ~ Date of Service: 08/12/2022 Subjective Subjective Narrative: Shazia Chou is a 31yo F. She was transferred here last night from [facility] with worsening headache and blurry [...] Flu Vac Quad (36month+)Pf 0.5 Ml Syringe 9760-1420 IM 08/13/22 09:01 .ONCE ONE Omeprazole 20 [...] V3 V2 Documented By: Lizzeth Malave MD 08/12/2244 Signed By: <Electronically signed by Lizzeth Malave MD> 08/12/22 [address] [facility] Work Phone: [phone] 345-316311-29-2022 Consult note Author Kenrick Lee [facility] August 12, 2022 4:21pm Note Date/Time August 12, 2022 8:13am [facility] [address] [place] [address] Neurology Consult Note Signed Patient: Shazia Chou MR#: [id number] : 1990 Acct:[id number] Age/Sex: 31 / F Adm Date: 2 Loc: 4N Room: [address] [place] [address] Type: ADM INOo Attending Dr: Lizzeth Malave MD Copies to: DO Jennie Wise ANP-C Ruta Semaskiene, MD~ HPI Consult Date: 08/12/22 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 She has been seen in neurological consultation with request of the hospital service for headache and blurred vision. Patient initially presented to [facility] and was transferred to [facility] for evaluation. She was seen in the [place] [facility] on 08/08/2022 with similar symptoms and [...] this is when she called EMS. At [facility] she had a CT scan [...] extremity from prior surgery CEREBELLAR EXAM: * Ywvuue-ac-oxcu and alternating movements are intact and normal in bilateral upper extremities * Npnw-ra-ddek and alternating movements are intact and normal [...] puncture based on these results. Evaluation at [facility]: * CT scan head is [...] <Electronically signed by Kenrick Lee DO> 08/12/22 [address] [facility] Work Phone: [phone] 259-545511-28-2022 History and physical note Author Sangeetha Peña [facility] August 11, 2022 9:43pm Note Date/Time August 11, 2022 9:08pm [facility] [address] [place] [address] Hospitalist H&P Signed Patient: Shazia Chou MR#: [id number] : 1990 Acct:[id number] Age/Sex: 31 / F Adm Date: 2 Loc: Room: [address] [place] [address] Type: ADM IN Attending Dr: Erin Barahona MD Copies to: MD Erin Mcwilliams MD~ HPI DATE OF EXAMINATION: 08/11/22 CHIEF COMPLAINT: Headache with blurry vision HISTORY OF PRESENT ILLNESS: Patient is a pleasant 31-year-old female with history of borderline personality disorder, bipolar disorder and depression. She was accepted by daytime hospitalist when contacted by [facility] physician due to concern for headache and [...] pain or dysuria. She was seenin the [facility] on 08/08 with [facility] symptoms. [facility]. Patient continues [...] vision: Plan Patient has been transferred from [facility] when she presented with complaint of headache and blurry vision. During my evaluation her blood pressure is in 115 systolic and complaining of headache with blurry vision. Denies diplopia with no pain in extraocular movement. There is concern for possible idiopathic intracranial hypertension and patient has been transferred to [facility] for further management and neurology evaluation. [...] <Electronically signed by Sangeetha Peña MD> 08/11/222142 [facility] Work Phone: [phone]) 752-362211-25-2022 Evaluation + Plan noteExtracted from: Title:ED Note [...] Influenza A&B Ag Rapid COVID Antigen ([facility]) UA With Cult Reflex Future Scheduled Tests Laboratory* CBC w/ Auto Diff 07/21/22 Radiology* MA Mamm Screen w/CAD if perf and 3D Tan[place] 04/21/22 [facility]11-25-2022 Hospital Discharge instructions Patient Education 08/08/2022 11:39:38 [...] health care provider to lose weight. Take exhy-sep-vsusrqa and prescription medicines only as told by [...] 11/09/2002 Document Revised: 08/13/2018 Document Reviewed: 07/22/2017 [employer] Patient Education 2020 [employer] Follow Up Care 08/08/2022 09:04:11 With:Kenrick Lee Address: [address] [place] [address]- Business (1) When:08/11/2022 11:38:22 Comments:Follow-up with Dr. [...] you develop any new or worsening symptoms. [facility]11-07-2022 Evaluation + Plan note Future Scheduled Tests Laboratory* CBC w/ Auto Diff 07/21/22 Radiology* MA Mamm Screen w/CAD if perf and 3D Tanmay 04/21/22 [facility] 11-07-2022 Evaluation + Plan note Future Scheduled Tests Laboratory* CBC w/ Auto Diff 07/21/22 [facility]11-07-2022 Hospital Discharge instructions Patient Education 07/21/2022 11:22:36 [...] Follow these instructions at home: Medicines Take ttai-gyb-wzmnwvh and prescription medicines only as told by your health care provider or pharmacist. Ask your pharmacist what bfza-jjv-baozchn cold medicines you should avoid. Some medicines [...] problem, search for a local or [facility]. Public mental health [...] 12/31/2017 Document Revised: 12/23/2019 Document Reviewed: 12/31/2017 [employer] Patient Education 2020 [employer] 07/21/2022 11:21:57 Tobacco Use Disorder Tobacco [...] reduces withdrawal symptoms. NRT is available as: ?Bcol-pja-ibmbqlb gums, lozenges, and skin patches. ?Prescription mouth [...] recovery for many people. General instructions Take qwts-cab-njafzep and prescription medicines only as told by your health care provider. Check with your health care provider before taking any new prescription or dmwh-kxd-bgqykoe medicines. Decide on a friend, family member, or smoking quit-line (such as 4-165-RAIB-NOW in the [place] that you can call [...] 05/06/2005 Document Revised: 08/18/2018 Document Reviewed: 08/18/2018 [employer] Patient Education 2020 [employer] 07/21/2022 11:21:55 BMI for Adults BMI for [...] height. This can be done either in [place] ([place] or metric measurements. Note that charts are available to help you find your BMI quickly and easily without having to do these calculations yourself. To calculate your BMI in [place] ([place] measurements, your health care provider will: [...] medical problems. BMI can be measured using [place] measurements or metric measurements. To interpret your [...] 05/12/2005 Document Revised: 08/13/2018 Document Reviewed: 07/14/2018 [employer] Patient Education 2020 [employer] 07/21/2022 11:21:53 Leukocytosis Leukocytosis Leukocytosis means that [...] Follow these instructions at home: Medicines Take uqua-hso-nnnsffw and prescription medicines only as told by [...] 08/19/2012 Document Revised: 05/26/2019 Document Reviewed: 05/26/2019 [employer] Patient Education 2020 [employer] Follow Up Care 07/18/2022 10:46:12 With:Aimee Walker CNP Address: When: only if needed [facility] 11-04-2022 Miscellaneous Notes* Telephone Encounter - Cat Rojo LPN - 07/18/2022 11:04 AM EDT Call placed to patient, no answer. Left message for patient to proceed with nicotine testing prior to scheduling. Please transfer to plastic surgery nurse if patient returns call with questions. documented in this [facility]22 Evaluation + Plan note Future Scheduled Tests Radiology* MRI Breast w/o and w/ Contrast, Left 05/13/22 * MA Mamm Screen w/CAD if perf and 3D [place] 04/21/22 [facility] General Surgery [place] 08-30-2022 Hospital Discharge instructions Patient Education 05/13/2022 [...] food choices, such as grocery stores and [employer] markets. What are the signs or symptoms? [...] and how much exercise you get. Take wvbb-flu-ssefsrb and prescription medicines only as told by [...] 10/08/2005 Document Revised: 05/05/2019 Document Reviewed: 05/05/2019 [employer] Patient Education 2019 [employer] [facility] General Surgery [place] [id number] Evaluation + Plan note Future Scheduled Tests Radiology* MA Mamm Screen w/CAD if perf and 3D Tanmay 04/21/22 [facility]08-08-2022 Hospital Discharge instructions Patient Education 04/21/2022 10:14:53 [...] height. This can be done either in [place] ([place] or metric measurements. Note that charts are available to help you find your BMI quickly and easily without having to do these calculations yourself. To calculate your BMI in [place] ([place] measurements, your health care provider will: [...] medical problems. BMI can be measured using [place] measurements or metric measurements. To interpret your [...] 05/12/2005 Document Revised: 08/13/2018 Document Reviewed: 07/14/2018 [employer] Patient Education 2020 [employer] 04/21/2022 10:14:51 Lymphadenopathy Lymphadenopathy Lymphadenopathy means that [...] at home: Get plenty of rest. Take cbqj-ryc-pmkngzo and prescription medicines only as told by your health care provider. Your health care provider may recommend posd-tch-lhhfqru medicines for pain. If directed, apply heat [...] 06/09/2009 Document Revised: 08/13/2018 Document Reviewed: 07/16/2018 [employer] Patient Education 2020 [employer] 04/21/2022 10:14:49 Tobacco Use Disorder Tobacco Use [...] reduces withdrawal symptoms. NRT is available as: ?Mhrg-ctw-sgzaxla gums, lozenges, and skin patches. ?Prescription mouth [...] recovery for many people. General instructions Take kwvs-qrm-ovqoitc and prescription medicines only as told by your health care provider. Check with your health care provider before taking any new prescription or vsna-iyd-jaewtxm medicines. Decide on a friend, family member, or smoking quit-line (such as 5-244-DMUB-NOW in the [place] that you can call [...] 05/06/2005 Document Revised: 08/18/2018 Document Reviewed: 08/18/2018 [employer] Patient Education 2020 [employer] Follow Up Care 04/17/2022 09:51:05 With:Aimee Walker CNP Address: When: only if needed [facility] 08-07-2022 Hospital Discharge [...] at home: Get plenty of rest. Take akml-iby-gpfkkbj and prescription medicines only as told by your health care provider. Your health care provider may recommend demc-sll-kmjniis medicines for pain. If directed, apply heat [...] 06/09/2009 Document Revised: 08/13/2018 Document Reviewed: 07/16/2018 [employer] Patient Education 2020 [employer] Follow Up Care 04/20/2022 14:55:22 With:Aimee Walker Address: [address] [place] [address] Ave, [place] [address] [phone] Business (1) When:04/23/2022 16:08:48 Comments:Follow-up with your primary care provider in 3 to 5 days. If symptoms worsen, do not improve, or new symptoms arise please report back to emergency department for further evaluation. [facility]08-07-2022 Evaluation + Plan noteExtracted from: Title:ED Note Author:Dony Alegre PA-C te:04/20/22 Axillary lymphadenopathy (R5 9.0: Localized enlarged lymph nodes) Orders: naproxen, 500 mg = 1 tab(s), Oral, BID, PRN for pain, # 20 tab(s), Refills(s) 0, Pharmacy: [facility]/pharmacy #[id number], 170, cm, 04/20/22 15:01:00 EDT, Height/Length Dosing, 81.5, kg, 04/20/22 15:01:00 EDT, Weight Dosing Automated Diff Basic Metabolic Panel CBC w/ Auto Diff eGFR XR Chest 2 Views Future Appointments Appointment Date:04/21/2022 09:40:00 AM Scheduled Provider:Aimee Walker CNP Location:[facility] Appointment Type: Open [facility]07-21-2022 Hospital Discharge instructions Patient Education 04/03/2022 19:32:39 [...] 03/15/2012 Document Revised: 08/24/2019 Document Reviewed: 08/24/2019 [employer] Patient Education 2020 [employer] Follow Up Care 04/03/2022 16:59:04 With:Aimee Walker CNP Address: [phone] When:04/06/2022 [facility]06-17-2022 Miscellaneous Notes* Telephone Encounter - Lina Chavez RN - 02/28/2022 3:[address] Mckee, patient must be 4 weeks nicotine free prior to scheduling and collection of cosmetic payment. documented in this [facility] History of Present illness Narrative* Amee Gonzalez PA-C - 02/12/2022 10:38 AM EDT Images from the original note were not included. Otolaryngology Consultation/Evaluation Note Head and Neck Ridge ASSESSMENT: Burning tongue (primary encounter diagnosis) Irritation of oral cavity PLAN: - Oral mucosa at floor of mouth, [place]'s ducts, and frenulum irritated with mild erythema [...] Take 40 mg by mouth once daily. axcvsyalagyp-mtm-csda-FA-vit K (BARIATRIC MULTIVITAMINS) 45 mg iron- 800 [...] in [facility] Hospital Discharge instructions Patient Education 02/06/2022 09:33:48 [...] reduces withdrawal symptoms. NRT is available as: ?Zoez-zid-fyghinj gums, lozenges, and skin patches. ?Prescription mouth [...] recovery for many people. General instructions Take xuri-ywp-ahbtcrm and prescription medicines only as told by your health care provider. Check with your health care provider before taking any new prescription or reho-grs-dgflpcs medicines. Decide on a friend, family member, or smoking quit-line (such as [phone] in the [place] that you can call [...] 05/06/2005 Document Revised: 08/18/2018 Document Reviewed: 08/18/2018 [employer] Patient Education 2020 [employer] 02/06/2022 09:33:46 BMI for Adults BMI for [...] height. This can be done either in [place] ([place] or metric measurements. Note that charts are available to help you find your BMI quickly and easily without having to do these calculations yourself. To calculate your BMI in [place] ([place] measurements, your health care provider will: [...] medical problems. BMI can be measured using Guinean measurements or metric measurements. To interpret your [...] 05/12/2005 Document Revised: 08/13/2018 Document Reviewed: 07/14/2018 [employer] Patient Education 2020 [employer] Follow Up Care 02/05/2022 13:43:34 With:Aimee Walker CNP Address: When: only if needed [facility] 05-18-2022 Hospital Discharge [...] height. This can be done either in [place] ([place] or metric measurements. Note that charts are available to help you find your BMI quickly and easily without having to do these calculations yourself. To calculate your BMI in [place] ([place] measurements, your health care provider will: [...] medical problems. BMI can be measured using Guinean measurements or metric measurements. To interpret your [...] 05/12/2005 Document Revised: 08/13/2018 Document Reviewed: 07/14/2018 [employer] Patient Education 2020 [employer] 01/29/2022 11:02:54 Complicated Grief Complicated Grief Grief [...] friends and loved ones. General instructions Take tpke-msq-gcobiny and prescription medicines only as told by [...] 08/31/2006 Document Revised: 08/13/2018 Document Reviewed: 06/16/2018 [employer] Patient Education 2020 [employer] 01/29/2022 11:02:50 Alcohol Abuse and Dependence Information, [...] for Disease Control and Prevention: www.cdc.gov National [place] on Alcohol Abuse and Alcoholism: www.niaaa.nih.gov Alcoholics [...] 08/25/2017 Document Revised: 12/20/2019 Document Reviewed: 11/08/2019 [employer] Patient Education 2019 [employer] 01/29/2022 11:02:46 Managing Bipolar Disorder Managing Bipolar [...] Follow these instructions at home: Medicines Take wwyi-ypx-uashtfu and prescription medicines only as told by your health care provider or pharmacist. Ask your pharmacist what vqwg-fqb-kogcbdj cold medicines you should avoid. Some medicines [...] problem, search for a local or [facility]. Public mental health [...] 12/31/2017 Document Revised: 12/23/2019 Document Reviewed: 12/31/2017 [employer] Patient Education 2019 [employer] [facility] 05-02-2022 Miscellaneous Notes* [...] another consult she would. Please advise at [phone] [facility] Miscellaneous Notes* Telephone Encounter - Rocio Hester [...] [facility] History of Present illness Narrative* Radha Jara - 02/01/2021 9:47 AM EDT CLINICAL PHARMACY NOTE: MEDS TO BEDS Total # of Prescriptions Filled: 2 The following medications were delivered to the patient: Percocet 5-325mg Augmentin 875-125mg Additional Documentation: delivered to patient in room 236 02/01 at 9:44am. Co- pay paid with credit on [employer] ($4.31). * Gamaliel iVckers DO - 01/31/2021 6:29 AM EDT Bariatric [...] other Hydration Advance diet Overall improvement * Melissa Singh [facility] - 01/30/2021 9:03 PM EDT Images from [...] at a rate of 12.5ml/hr. Thank You, Melissa Singh RPH 19:00 PM documented in this encounter[facility]ervilleTouchLocal Phone: 1(313) 391-681405-15-2021 History of Present illness Narrative* Jasmine Burch RN - 01/26/2021 1:51 PM EDT Infusion complete, no complications, IV out and dressing applied. Encouraged patient to call with any questions. Patient left unit with steady gait to private residence. documented in this encounterCentervilleTouchLocal Phone: 1(521) 583-876304-27-2021 History of Present illness Narrative* Radha Jara - 01/08/2021 5:59 PM EDT CLINICAL PHARMACY NOTE: MEDS TO [facility] Patient?: No Total # of Prescriptions Filled: 3 The following medications were delivered to the patient: Percocet 5-325mg Promethazine 25mg Pantoprazole 40mg Total # of Interventions Completed: 0 Time Spent (min): 0 Additional Documentation: delivered to patient in room 247 01/08 at 5:43pm. Co- pay paid with [employer] ($7.02). * Gal Atwood DO - 01/08/2021 [...] Morbid obesity with BMI of 40.0-44.9, adult ([facility]) [E66.01, Z68.41] 05/16/2020 30 y.o. female [...] obtained for OR 01-07-21 documented in this [employer] Phone: [phone]) 676-490904-27-2021 Hospital Discharge instructions* Instructions* Gamaliel Vickers, - 01/08/2021 Discharge Instructions for Surgery You had a Tian-en- Y Gastric Bypass (30151) surgery to treat obesity. Recovery from this [...] scheduled appointment, please call the office at [phone]. Call Your Doctor If Any of the [...] 911 immediately. [facility] this [facility]: [phone]) 733-555404-12-2021 Hospital Discharge instructions* Instructions* Mahesh Price, CEDRIC - DESIGN TRANSFERRER - 12/24/2020 Images from the original note [...] drive you home after your procedure. Your driver manager must be 18 years of age or [...] questions, call the Pre-Admission Testing Unit at [phone]. Day of Surgery/Procedure As a patient at [facility] you can expect quality medical and nursing care that is centered on your individual needs. Our goal is to make your surgical experience as comfortableas possible . Directions to the Surgery Center [facility] is located at [address] [place] [address]. Please pull into the Emergency parking lot and stop at the client support consultant arcos. We offer free client support consultant service for all our surgery patients, if you choose not to have client support consultant parking we have additional parking across the street.You will enter the facility following the [facility] sign. Please stop at the fiberglass tube molder desk where you will be checked in by the staff. If you have any questions please call [phone]. Transportation after your procedure. You will need a friend or family member to drive you home after your procedure. Your driver manager must be18 years of age or older [...] You may shave your face or neck. [place] your teeth but do not swallow water. [...] or the day of surgery, please call [phone], or [phone] documented in this [facility]: [phone]) 528-297304-12-2021 History of Present illness Narrative* PriceMahesh stevensonCEDRIC - DESIGN TRANSFERRER - 12/24/2020 10:30 AM EDT Anesthesia Focused [...] Jacki Nicole for therapy Borderline personality disorder (HCC) [facility], therapist Jacki Nicole Depression Flat feet, bilateral Foot pain, bilateral Dr. Octavio Sims, software packager GERD (gastroesophageal reflux disease) managed by Dr. Vickers Obesity Patient was evaluated in PAT & [...] BLEVINS 12/24/20 11:38 AM documented in this [facility] Work Phone: evaluation + Plan note No data available for this section [facility] Evaluation + Plan note Referrals to Other Providers Referred by: Aimee Walker CNP [facility] Evaluation + Plan note Future Appointments Appointment Date:04/04/2022 02:40:00 PM Scheduled Provider:Rahul Salinas DO Location:[facility] [employer] [facility]ments Appointment [...] w/CAD if perf and 3D Tanmay 04/21/22 [facility] Evaluation + Plan note Future Appointments Appointment Date:08/22/2022 10:20:00 AM Scheduled Provider:Rahul Salinas DO Location:[facility] [employer] Appointment Type: Hospital Follow Up w/TCM Future Scheduled Tests Laboratory* CBC w/ Auto Diff 07/21/22 Radiology* MA Mamm Screen w/CAD if perf and 3D [place] 04[facility]21/22 [facility] Future Appointments Appointment Date:11/03/2022 01:00:00 PM Scheduled Provider:Nakia Shah Location:[facility] Appointment Type:FM Open Future Scheduled Tests Laboratory* CBC w/ Auto Diff 07/21/22 Radiology* MA Mamm Screen w/CAD if perf and 3D [place] 04/21/22 [facility] Future Appointments Appointment Date:01/02/2023 10:00:00 AM Scheduled Provider:Nakia Shah Location:[facility] Appointment Type:FM Open Future Scheduled Tests Laboratory* CBC w/ Auto Diff 07/21/22 Radiology* MA Mamm Screen w/CAD if perf and 3D Tanmay 04/21/22 [facility] Evaluation + Plan note Future Appointments Appointment Date:12/05/2022 09:00:00 AM Scheduled Provider: Location:[facility] Appointment Type:Surgery FT Appointment Date:01/02/2023 10:00:00 AM Scheduled Provider:Nakia Shah Location:[facility] Appointment Type:FM Open Future Scheduled Tests Laboratory* CBC w/ Auto Diff 07/21/22 Radiology* MA Mamm Screen w/CAD if perf and 3D Tan[place] 04/21/22 [facility] Future Appointments Appointment Date:12/25/2023 10:15:00 AM Scheduled Provider:Otto Larsen MD Location[facility] Appointment Type:Cardiology New Patient (FT) [facility] Future Appointments Appointment Date:11/10/2024 08:00:00 AM Scheduled Provider: [facility] Type:US Abdominal/Pelvis (FT) Future Scheduled Tests Radiology* US Abdomen, Limited 11/10/24 [facility] Evaluation + Plan note Future Appointments Appointment Date:11/15/2024 01:45:00 PM Scheduled Provider:Orlando Kate PA-C Location:[facility] Appointment Type:Pain Management - New (FT) [facility] Evaluation + Plan note Future Appointments Appointment Date:12/19/2024 10:15:00 AM Scheduled Provider:Orlando Kate PA-C Location:[facility] [place] Appointment Type:Pain Management - Follow Up (FT) [facility] Evaluation + Plan note Future Appointments Appointment Date:01/24/2025 09:30:00 AM Scheduled Provider: Location:[facility] Appointment Type:Surgery FT Appointment Date:01/27/2025 10:15:00 AM Scheduled Provider:Orlando Kate PA-C Location:[facility] [place] Appointment Type:Pain Management - Follow Up (FT) [facility] Evvaleri + Plan note Future Appointments Appointment Date:02/13/2025 08:30:00 AM Scheduled Provider: Location:[facility] Appointment Type:Surgery FT Appointment Date:02/15/2025 01:30:00 PM Scheduled Provider:Orlando Kate PA-C Location:[facility] [place] Appointment Type:Pain Management - Follow Up (FT) Appointment Date:02/16/2025 01:00:00 PM Scheduled Provider:Jak Peace MD Location:[facility] Appointment Type:Cardiology New Patient (FT) [facility] evaluation + Plan note Future Appointments Appointment Date:02/17/2025 09:15:00 AM Scheduled Provider: Location:[facility] Appointment Type:Surgery FT Appointment Date:02/20/2025 02:30:00 PM Scheduled Provider:Orlando Kate PA-C Location:[facility] [place] Appointment Type:Pain Management - Follow Up (FT) Appointment Date:03/16/2025 02:30:00 PM Scheduled Provider:Jak Peace MD Location:[facility] Appointment Type:Cardiology Follow Up (FT) Future Scheduled Tests Radiology* NM Myocardial Spect Rest/Stress 1 Day 02/16/25 [facility] evaluation + Plan note Future Appointments Appointment Date:03/13/2025 11:30:00 AM Scheduled Provider: Location[facility] Appointment Type:NM Myocard Spect Multi Rest/Stress-Res Appointment Date:03/13/2025 12:30:00 PM Scheduled Provider: Location:[facility] Appointment Type:NM Myocard Spect Multi Rest/Stress - R Appointment Date:03/13/2025 01:00:00 PM Scheduled Provider: Location:[facility] Appointment Type:NM Myocard Spect Multi Rest/Stress-Str Appointment Date:03/13/2025 02:00:00 PM Scheduled Provider: Location:[facility] Appointment Type:NM Myocar Spect Multi Rest/Stress - St Appointment Date:03/16/2025 02:30:00 PM Scheduled Provider:Jak Peace MD Location:[facility] Appointment Type:Cardiology Follow Up (FT) Future Scheduled Tests Radiology* NM Myocardial Spect Rest/Stress 1 Day 03/13/25 [facility] Evaluation + Plan note Future Appointments Appointment Date:03/03/2025 08:30:00 AM Scheduled Provider: Location:[facility] Appointment Type:Surgery FT Appointment Date:03/09/2025 12:30:00 PM Scheduled Provider:Babar Mayers DO Location[facility] [place] Appointment Type:Pain Management - Follow Up (FT) Appointment Date:03/13/2025 11:30:00 AM Scheduled Provider: Location[facility] Appointment Type:NM Myocard Spect Multi Rest/Stress-Res Appointment Date:03/13/2025 12:30:00 PM Scheduled Provider: Location:[facility] Appointment Type:NM Myocard Spect Multi Rest/Stress - R Appointment Date:03/13/2025 01:00:00 PM Scheduled Provider: Location[facility] Appointment Type:NM Myocard Spect Multi Rest/Stress-Str Appointment Date:03/13/2025 02:00:00 PM Scheduled Provider: Location:[facility] Appointment Type:NM Myocar Spect Multi Rest/Stress - St Appointment Date:03/16/2025 02:30:00 PM Scheduled Provider:Jak Peace MD Location:[facility] Appointment Type:Cardiology Follow Up (FT) Future Scheduled Tests Radiology* NM Myocardial Spect Rest/Stress 1 Day 03/13/25 [facility] Evaluation note* Diagnosis Preop testing- Primary Preoperative examination, unspecified documented in this encounter [employer] Phone: [email or web address] note* Diagnosis Post-op pain- Primary Other acute postoperative pain Status post gastric bypass for obesity Bariatric surgery status Morbid obesity with BMI of 40.0-44.9, adult (HCC) Hiatal hernia Diaphragmatic hernia without mention of obstruction or gangrene documented in this encounter [employer] Phone: evaluation note* Diagnosis Dehydration documented in this encounter [employer] Phone: evaldwippi note* Diagnosis Generalized abdominal pain- Primary Abdominal pain, generalized documented in this encounter [employer] Phone: [email or web address] note* Diagnosis Surgery, elective- Primary Unspecified elective surgery for purposes other than remedying health states Omental infarction (HCC) Acute vascular insufficiency of intestine Intra-abdominal abscess (HCC) Peritoneal abscess documented in this encounter [employer] Phone: [email or web address] note* Diagnosis Omental infarction (HCC) Acute vascular insufficiency of intestine documented in this encounter [employer] Phone: [email or web address] note* Diagnosis Hypertrophy of breast- Primary Upper back pain Excess skin [facility]* Diagnosis Burning tongue- Primary Glossodynia Irritation of oral cavity Other and unspecified diseases of the oral soft tissues documented in this encounter [facility] note* Diagnosis Onset Date Resolution Status Bipolar 1 disorder acute Blurry vision acute Borderline personality disorder acute Headache acute MDD (major depressive disorder) acute Palpitation acute [facility] [employer] Phone: Evaluation note* Diagnosis Idiopathic intracranial hypertension- Primary Benign intracranial hypertension Depression, unspecified depression type Primary hypertension Unspecified essential hypertension Hx of gastric bypass Bariatric surgery status H/O foot surgery Personal history of surgery to other organs documented in this encounter [facility] noteNo assessment information availableKettering Health [facility]ble Work Phone: Evaluation noteNo InformationNort [employer] Other Evaluation note* Diagnosis Panic disorder- Primary Panic disorder without agoraphobia Borderline personality disorder (HCC) Borderline personality disorder Bipolar affective disorder in remission (HCC) Chronic alcoholism in remission (HCC) Other and unspecified alcohol dependence, in remission Routine health maintenance Routine general medical examination at a health care facility documented [facility] this encounter [facility]* Diagnosis Panic disorder- Primary Panic disorder without agoraphobia documented in this encounter [facility]* Diagnosis Routine health maintenance- Primary [...] this encounter [facility]* Diagnosis 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 documented in this encounter [facility]* Diagnosis Idiopathic intracranial hypertension Benign intracranial hypertension documented in this encounter [facility]* Diagnosis Chest pain, unspecified type- Primary Palpitations Bipolar affective disorder in remission (HCC) History of substance abuse (HCC) Other, mixed, or unspecified nondependent drug abuse, unspecified Borderline personality disorder (HCC) Borderline personality disorder Serum calcium elevated Hypercalcemia documented in this encounter [facility]* Diagnosis Mass of upper outer quadrant of left breast documented in this encounter [facility]* Diagnosis Abnormal mammogram- Primary Abnormal [...] this encounter [facility]* Diagnosis Abnormal mammogram of left breast documented in this encounter [facility]* Diagnosis Bipolar affective disorder in remission (HCC)- Primary Borderline personality disorder (HCC) Borderline personality disorder Anxiety disorder, unspecified type Chest pain, unspecified type Iron deficiency anemia, unspecified iron deficiency anemia type documented in this [facility]* Diagnosis Angina pectoris Other and unspecified angina pectoris Shortness of breath Palpitations Family history of ischemic heart disease Primary hypertension Unspecified essential hypertension Current smoker BMI 29.0-29.9,adult documented in this encounter [facility] Work Phone: Evaluation note* Diagnosis Bipolar affective disorder in remission (HCC) Borderline personality disorder (HCC) Borderline personality disorder Anxiety disorder, unspecified type [facility] Diagnosis Angina pectoris Other and unspecified angina pectoris Shortness of breath Palpitations Family history of ischemic heart disease Primary hypertension Unspecified essential hypertension documented in this encounter [facility] Work Phone: Evaluation note* Diagnosis Ataxia- Primary Lack of coordination Myalgia Unspecified myalgia and myositis documented in this encounter [facility] Healthcare[facility]* Diagnosis Myalgia Unspecified myalgia and myositis documented in this encounter [facility] Healthcare[facility] note* Diagnosis Bipolar affective disorder in remission (HCC) Borderline personality disorder (HCC) Borderline personality disorder Anxiety disorder, unspecified type documented in this encounter [facility] general Narrative - Reported* Type Description Date Medical History plantar fasciitis Medical History migraine headache Medical History borderline personality disorder Medical History chronic depression Medical History bipolar Surgical History C section Surgical History c section Surgical History tubal ligation Surgical History HYSTERECTOMY Surgical History oral surgery Surgical History gastric bypass Hospitalization History mental health issues [employer] Other [facility] general Narrative - Reported* Type Description Date Medical History plantar fasciitis Medical History migraine headache Medical History borderline personality disorder Medical History chronic depression Medical History bipolar Surgical History C section Surgical History c section Surgical History tubal ligation Surgical History HYSTERECTOMY Surgical History oral surgery Surgical History gastric bypass Hospitalization History mental health issues Hospitalization History [facility] - hysterectomy 11/13 023 [employer] Other Hospital Discharge instructions No data available for this section [facility] Hospital Discharge instructions Additional Instructions Follow-up with your PCP and neurology Rest Push fluids Tylenol or Motrin if needed for pain Return here if any problems persist or worsenK[facility] Work Phone: Progress note No data available for this section [facility] for referral (narrative)* Outpatient Procedure (Routine) - New Request Specialty Diagnoses / Procedures Referred By Simona t Referred To [facility] Diagnoses Chest pain, unspecified type Palpitations Procedures ECG COMPLETE ECG ROUTINE ECG W/LEAST 12 LDS W/I&[place] [address] [place] [address] [facility] [address] [place] [id number] Referral ID Status Reason Start Date Expiration Date Visits Requested Visits Authorized [id number] New Request Auto-Generat ed Referral 07/01/2025 1 1 T [facility] for referral (narrative)* Diagnostic Procedure Only (Routine) - Closed Specialty Diagnoses / Procedures Referred By Simona t Referred To Contact [facility] Diagnoses Abnormal mammogram of left breast Procedures US BIOPSY BREAST LEFT BX BREAST W/DEVICE 1ST [facility] ULTRASOUND Abi Allen MD [address] [place] [address] [facility] [address] [place] [id number] Referral ID Status Reason Start Date Expiration Date V isits Requested Visits Authorized [id number] Closed Auto-Generate d Referral 07/05/2024 08/04/2025 1 1 T [facility] for visit Narrative* Diagnostic Procedure Only (Routine) - Closed Specialty Diagnoses / Procedures Referred By Contac t Referred To Contact [facility] Diagnoses Abnormal mammogram of left breast Procedures US BIOPSY BREAST LEFT BX BREAST W/DEVICE 1ST [facility] ULTRASOUND Abi Allen MD [address] [place] [id number] [facility] [address] [place] [address] Referral ID Status Reason Start Date Expiration Date V isits Requested Visits Authorized [id number] Closed Auto-Generate d Referral 07/05/2024 08/04/2025 1 1 [facility] Narr[facility]* Cardiovascular (Routine) - Authorized Specialty Diagnoses / Procedures Referred By Contac t Referred To Contact Cardiology Diagnoses Angina pectoris Shortness of breath Procedures ECG 12 Lead Aleah Howard MD [address] [address] Phone: tel: fax: Referral ID Status Reason Start Date Expiration Date V isits Requested Visits Authorized [id number] Authorized 08/08/2024 08/08/2025 1 1 [facility] Work Phone: Reason for visit Narrative* CV Imaging (Routine) - Authorized Specialty Diagnoses / Procedures Referred By Simona bailey Referred To Contact Cardiology Diagnoses Angina pectoris Shortness of breath Palpitations Family history of ischemic heart disease Primary hypertension Procedures Transthoracic Echo Complete LA ECHO TTHRC R-T 2D W/WOM-MODE COMPL SPEC&COLR D Aleah Howard MD [address] [address] Phone: tel: fax: Referral ID Status Reason Start Date Expiration Date Visits Requested Visits Authorized [id number] Authorized Perform Procedure 08/08/2025 1 1 [facility] Work Phone: Assessments Diagnosis Preoperative testing Preoperative examination, unspecified Diagnosis Gastroesophageal reflux disease with esophagitis without hemorrhage Advance Directives No Advanced Directives Records FoundDocuments on File Type Date Recorded Patient Content Designer Expl anation ACP-Advance Directive ACP-Power of Substation Technician Documents on File Type Date Recorded Patient Content Designer Expl anation ACP-Advance Directive ACP-Power of Substation Technician Latest Code Status on File Code Status [...] Time Advance Directives No January 08, 019 6:21pm Advance Directive Response Recorded Date/ [...] Heart disease Unknown History of stroke Unknown Relationship Condition Age at Onset Recorded Date/T ankit mother Malignant neoplasm of pancreas Unknown father Amyotrophic lateral sclerosis Unknown grandparent Malignant neoplasm of pancreas Unknown family member Malignant neoplasm of pancreas Unknown father Unknown Family history of mental disorder Unknown Malignant neoplasm Unknown family member Family history of other condition Unknow n mother Diabetes mellitus Unknown Hypertension Unknown Unknown Heart [...] questions, PLEASE call your doctor or the [facility] at documented in this encounter Reason for Referral Status Reason Specialty Diagnoses / Procedures Referre d By Contact Referred To Contact Closed Radiology Diagnoses Omental infarction (HCC) Procedures CT ABDOMEN PELVIS W IV CONTRAST Additional Contrast? Oral Gamaliel Vickers DO [address] [place] [address] Specialty Diagnoses / Procedures Referred By Contac t Referred To Contact Ophthalmology Diagnoses Idiopathic intracranial hypertension Procedures CONSULT TO OPHTHALMOLOGY OFFICE/OUTPATIENT [facility] 60-74 MINUTES Eileen Alvarez MD [address] [place] [address] Referral ID Status Reason Start Date Expiration Date Visits Requested Visits Authorized [id number] Authorized PCP Requested Referral 11/20/2022 11/20/2023 1 1 Specialty Diagnoses / Procedures Referred By Contac t Referred To Contact MR IMAGING Diagnoses Idiopathic intracranial hypertension Procedures MRV BRAIN WO/W IVCON MRA; HEAD W & WO CONTRAST Eileen Alvarez MD [address] [place] [address] Mr Imaging Referral ID Status Reason Start Date Expiration Date Visits Requested Visits Authorized [id number] Pending Review Auto-Generat ed Referral 11/20/2022 12/20/2023 1 1 Specialty Diagnoses / Procedures Referred By Contac t Referred To Contact MR IMAGING Diagnoses Mass of upper outer quadrant of left breast Procedures MRI BREAST BX WO/W IVCON LEFT BX BREAST W/DEVICE 1ST LESION MAGNETIC RES GUID Elia Baires, [address] [place] [address] Mr Imaging [place] [address] Referral ID Status Reason Start Date Expiration Date Visits Requested Visits Authorized [id number] Pending Review Auto-Generat ed Referral 03/08/2024 04/07/2025 1 1 Specialty Diagnoses / Procedures Referred By Contac t Referred To Contact Diagnoses Class 1 obesity due to excess calories without serious comorbidity with body mass index (BMI) of 30.0 to 30.9 in adult Procedures ENDOCRINE MEDICAL WEIGHT MANAGEMENT OFFICE/OUTPATIENT [facility] [address] [place] [address] [place] [address] Referral ID Status Reason Start Date Expiration Date Visits Requested Visits Authorized [id number] Authorized PCP Requested Referral 03/08/2024 03/08/2025 1 1 Specialty Diagnoses / Procedures Referred By Contac t Referred To Contact MR IMAGING Diagnoses Pancreas cyst Procedures MRI 3D POST PROCESSING 3D RENDERING W/INTERP&POSTPROC DIFF WORK STATION Leonela Aguirre MD [address] [place] [address] Mr Imaging [place] [address] Referral ID Status Reason Start Date Expiration Date V isits Requested Visits Authorized [id number] Closed Auto-Generate d Referral 08/31/2023 09/29/2024 1 1 Specialty Diagnoses / Procedures Referred By Contac t Referred To Contact MR IMAGING Diagnoses Pancreas cyst Procedures MRI PANC/TANMAY WO/W IVCON MRI ABDOMEN W/O & W/CONTRAST MATERIAL Leonela Aguirre MD [address] [place] [address] Mr Imaging [place] [address] Referral ID Status Reason Start Date Expiration Date V isits Requested Visits Authorized [id number] Closed Auto-Generate d Referral 03/01/2024 03/31/2024 1 1 Specialty Diagnoses / Procedures Referred By Contac t Referred To Contact MR IMAGING Diagnoses Idiopathic intracranial hypertension Procedures MRV BRAIN WO/W IVCON MRA; HEAD W & WO CONTRAST Eileen Alvarez MD [address] [place] [address] Mr Imaging [facility] Referral ID Status Reason Start Date Expiration Date V isits Requested Visits Authorized [id number] Closed Auto-Generate d Referral 01/29/2023 02/28/2023 1 1 Specialty Diagnoses / Procedures Referred By Simona bailey Referred To Contact MR IMAGING Diagnoses Mass of upper outer quadrant of left breast Fibrocystic breast changes of both breasts Mastodynia Inversion of left nipple Bloody discharge from left nipple Nipple discharge Procedures MRI BREAST WO/W IVCON BILATERAL MRI BREAST WITHOUT&WITH CONTRAST W/CAD BILATERAL Fatuma Tyler APRN.DESIGN TRANSFERRER [address] [place] [address] Mr Imaging [place] [address] Referral ID Status Reason Start Date Expiration Date Visits Requested Visits Authorized [id number] Pending Review Auto-Generat ed Referral 08/03/2025 1 1 Specialty Diagnoses / Procedures Referred By Simona bailey Referred To Contact BR IMAGING Diagnoses Mass of upper outer quadrant of left breast Procedures US BREAST LTD LEFT US BREAST UNI REAL TIME WITH IMAGE LIMITED Fatuma Tyler APRN.DESIGN TRANSFERRER [address] [place] [address] Br Imaging [address] [place] [address] Referral ID Status Reason Start Date Expiration Date V isits Requested Visits Authorized [id number] Closed Auto-Generate d Referral 07/04/2024 09/13/2024 1 1 Specialty Diagnoses / Procedures [facility] Referred To Contact BR IMAGING Diagnoses Mass of upper outer quadrant of left breast Procedures LINDA DIAG W AV BILATERAL DIGITAL BREAST TOMOSYNTHESIS BILATERAL Fatuma Tyler APRN.DESIGN TRANSFERRER [address] [place] [address] Br Imaging [address] [place] [address] Referral ID Status Reason Start Date Expiration Date V isits Requested Visits Authorized [id number] Closed Auto-Generate d Referral 07/04/2024 09/13/2024 1 [...] dizzy, chest pressure mental eval trouble breathing Chief Complaint Admit Date muscle weakness, sent by September 15, 2024 12:44pm Chief Complaint Admit Date muscle weakness, sent by September 15, 2024 12:44pm [facility] December 12, 2024 9:4 0am Chief Complaint Admit Date [facility] December 12, 2024 9:4 0am [email or web address] December 16, 2024 11:2 9am Additional Source Comments INFORMATION SOURCE (unrecogn ized section and content) DATE CREATED AUTHOR 10/06/2020 [facility] DATE CREATED AUTHOR AUTHOR'S ORGANIZ ATION 01/06/2021 [facility] DATE CREATED AUTHOR AUTHOR'S ORGANIZ ATION 08/16/2022 [facility] DATE CREATED AUTHOR AUTHOR'S ORGANIZ ATION 11/15/2022 [facility] DATE CREATED AUTHOR AUTHOR'S ORGANIZ ATION 08/17/2023 [facility] DATE CREATED AUTHOR AUTHOR'S ORGANIZ ATION 09/04/2023 [facility] DATE CREATED AUTHOR AUTHOR'S ORGANIZ ATION 10/26/2023 [facility] DATE CREATED AUTHOR AUTHOR'S ORGANIZ ATION 03/12/2024 [facility] DATE CREATED AUTHOR AUTHOR'S ORGANIZ ATION 09/16/2024 [facility] DATE CREATED AUTHOR AUTHOR'S ORGANIZ ATION 09/25/2024 [facility] DATE CREATED AUTHOR AUTHOR'S ORGANIZ ATION 09/26/2024 [facility] DATE CREATED AUTHOR AUTHOR'S ORGANIZ ATION 09/30/2024 [facility] DATE CREATED AUTHOR AUTHOR'S ORGANIZ ATION 09/30/2024 [facility] DATE CREATED AUTHOR AUTHOR'S ORGANIZ ATION 10/19/2024 [facility] DATE CREATED AUTHOR AUTHOR'S ORGANIZ ATION 12/13/2024 [facility] DATE CREATED AUTHOR AUTHOR'S ORGANIZ ATION 01/29/2025 [facility] DATE CREATED AUTHOR AUTHOR'S ORGANIZ ATION 02/19/2025 [facility] DATE CREATED AUTHOR AUTHOR'S ORGANIZ ATION 02/25/2025 [facility] DATE CREATED AUTHOR AUTHOR'S ORGANIZ ATION 03/05/2025 [facility] DATE CREATED AUTHOR AUTHOR'S ORGANIZ ATION 03/10/2025 [facility] DATE CREATED AUTHOR AUTHOR'S ORGANIZ ATION 03/16/2025 [facility] Reason for Visit (unrecogniz ed section and content) Status Reason Specialty Diagnoses / Procedures Re ferred By Contact Referred To Contact Diagnoses GERD (gastroesophageal reflux disease) GERD/OBESITY Procedures LA ESOPHAGOGASTRODUODENOSCOPY TRANSORAL DIAGNOSTIC EGD ESOPHAGOGASTRODUODENOSCOPY Gamaliel Vickers DO [address] [place] [phone] [facility] Status Reason Specialty Diagnoses / Procedures Referre d By Contact Referred To Contact Closed Radiology Diagnoses Gastro-esophageal reflux disease with esophagitis, without bleeding Procedures CHG RADIOLOGIC EXAM UPR GI TRC SINGLE CONTRAST STUDY Gamaliel Vickers DO [address] [place] [address] [facility] Rad[facility] [address] [place] [id number] Status Reason Specialty Diagnoses / Procedures Referre d By Contact Referred To Contact Diagnoses Morbid obesity (HCC) GERD (gastroesophageal reflux disease) MORBID OBESITY, GERD Procedures LA LAP GASTRIC BYPASS/TIAN-EN-Y XI LAPAROSCOPIC ROBOTIC GASTRIC BYPASS TIAN-EN-Y, LIVER BIOPSY, EGD- GI UNIT SCHEDULED. Gamaliel Vickers DO [address] [place] [address] [facility] Reason Comments Abdominal Pain Diffuse cramping and bloating. Onset 2 days ago. Pt reports she is 3.5weeks post Gastric bypass. Last BM this AM Reason Comments Abdominal Pain possible abscess Status Reason Specialty Diagnoses / Procedures Referre d By Contact Referred To Contact Diagnoses Intra-abdominal abscess (HCC) Omental infarction (HCC) Gamaliel Vickers DO [address] [facility] [address] [place] [phone] [facility] Status Reason Specialty Diagnoses / Procedures Referre d By Contact Referred To Contact Closed Radiology Diagnoses Omental infarction (HCC) Procedures CT ABDOMEN PELVIS W IV CONTRAST Additional Contrast? Oral Gamaliel Vickers DO [address] [facility] [address] [place] [phone] Reason Comments Orders Reason Comments Patient Question [...] present [K21.9] Obesity (BMI 30-39.9) [E66.9] Procedures LA EGD TRANSORAL BIOPSY SINGLE/MULTIPLE LA ESOPHAGOGASTRODUODENOSCOPY TRANSORAL DIAGNOSTIC LA EGD BALLOON DILATION ESOPHAGUS <30 MM DIAM EGD BIOPSY Gamaliel Vickers DO [address] [facility] [address] [place] [address] [facility] [address] [place] [address] Referral ID Status Reason Start Date Expiration Date Visits Re quested Visits Authorized [id number] 1 1 Reason Comments Establish Care Panic [...] W/O & W/CONTRAST MATERIAL Leonela Aguirre MD [address] [place] [id number] Mr Imaging [place] [address] Referral ID Status Reason Start Date Expiration Date V isits Requested Visits Authorized [id number] Closed Auto-Generate d Referral 03/01/2024 03/31/2024 1 1 Reason Onset Date Comments ACM EDYTA RN 05/30/2024 ED Utilizatio n review per request of payer Specialty Diagnoses / Procedures [facility] Referred To Contact MR IMAGING Diagnoses Idiopathic intracranial hypertension Procedures MRV BRAIN WO/W IVCON MRA; HEAD W & WO CONTRAST Eileen Alvarez MD [address] [place] [phone] Mr Imaging [place] [address] Referral ID Status Reason Start Date Expiration Date V isits Requested Visits Authorized [id number] Closed Auto-Generate d Referral 01/29/2023 02/28/2023 1 1 Reason Comments Establish Care Anxiety is getting b ad On/off chest pain ,Rapid HR, trouble in sleeping, body aches, BP elevated , light headed dizzy, blurry vision, trouble eating or drinking can't stop eating Reason Comments Radiology Mammogram Specialty Diagnoses / Procedures [facility] Referred To Contact BR IMAGING Diagnoses Mass of upper outer quadrant of left breast Procedures LINDA DIAG W AV BILATERAL DIGITAL BREAST TOMOSYNTHESIS BILATERAL Fatuma Tyler, CEDRIC.DESIGN TRANSFERRER [address] [place] [id number] Br Imaging [address] [place] [address] Referral ID Status Reason Start Date Expiration Date V isits Requested Visits Authorized [id number] Closed Auto-Generate d Referral 07/04/2024 09/13/2024 1 [...] Utilizatio n Review per request of payor Reason Onset Date Comments Population Health Navigation Outreach 10/17/2024 [employer] [employer] Ordered Prescriptions (unrec ognized section and content) [...] mL/hr, Administer over 1 Hours, ONCE, On 5/15/21 at 0915, For 1 dose 1028 (New Bag - Prov ider: Jasmine Burch RN)1129 (Stopped - Provider: Jasmine Burch RN) 0.9 % sodium chloride bolus (COMPLETED) 1,000 mL (8.71 mL/kg), Intravenous, at 250 mL/hr, Administer over 4 Hours, ONCE, On Thu01/26/21 at 0915, For 1 dose 1131 (New [...] Yanelis Martínez, RN)1500 (Stopped - Provider: Yanelis Martínez, RN) Continuous Medication Order 01/28/2021 01/29/2021 01/30/2021 [...] 1 dose 1142 (Given - Provid er: [facility]) iopamidol (ISOVUE-370) 76 % injection 75 mL (COMPLETED) 75 mL, Intravenous, IMG ONCE PRN, Other, Starting on Thu01/30/21 at 1137, For 1 dose 1142 (Given - Provid er: [facility]) Scheduled Medication Order 01/30/2021 01/31/2021 02/01/2021 0.9 % sodium chloride bolus (COMPLETED) 1,000 mL (8.96 mL/kg), Intravenous, at 1,000 mL/hr, Administer over 1 Hours, ONCE, On Thu01/30/21 at 1715, For 1 dose 1708 (New Bag - Provider: Orlando Guevara, RN)1901 (Stopped - Provider: Orlando Guevara, MARCO) enoxaparin (LOVENOX) injection 40 mg 40 mg, [...] Heather Palacios RN)0940 (Stopped - Provider: Wei Carter, MARCO)1257 (New Bag - Provider: Wei Carter, MARCO)1632 (Stopped - Provider: Wei Carter, MARCO)2032 (New Bag - Provider: Rita Klein, MARCO) 0030 (Stopped - Provider: Rita Klein RN)0559 [...] drug abuse patient.[facility] the event this information is protected by the Federal Confidentiality of Alcohol and Drug Abuse Patient Records regulations: The Federal rules restrict any use of the information to criminally investigate or prosecute any alcohol or drug abuse patient.[facility] the event this information is protected by the Federal Confidentiality of Alcohol and Drug Abuse Patient Records regulations: The Federal rules restrict any use of the information to criminally investigate or prosecute any alcohol or drug abuse patient.[facility] the event this information is protected by the Federal Confidentiality of Alcohol and Drug Abuse Patient Records regulations: The Federal rules restrict any use of the information to criminally investigate or prosecute any alcohol or drug abuse patient.[facility] the event this information is protected by the Federal Confidentiality of Alcohol and Drug Abuse Patient Records regulations: The Federal rules restrict any use of the information to criminally investigate or prosecute any alcohol or drug abuse patient.[facility] the event this information is protected by the Federal Confidentiality of Alcohol and Drug Abuse Patient Records regulations: The Federal rules restrict any use of the information to criminally investigate or prosecute any alcohol or drug abuse patient.[facility] the event this information is protected by the Federal Confidentiality of Alcohol and Drug Abuse Patient Records regulations: The Federal rules restrict any use of the information to criminally investigate or prosecute any alcohol or drug abuse patient.[facility] the event this information is protected by the Federal Confidentiality of Alcohol and Drug Abuse Patient Records regulations: The Federal rules restrict any use of the information to criminally investigate or prosecute any alcohol or drug abuse patient.[facility] the event this information is protected by the Federal Confidentiality of Alcohol and Drug Abuse Patient Records regulations: The Federal rules restrict any use of the information to criminally investigate or prosecute any alcohol or drug abuse patient.[facility] the event this information is protected by the Federal Confidentiality of Alcohol and Drug Abuse Patient Records regulations: The Federal rules restrict any use of the information to criminally investigate or prosecute any alcohol or drug abuse patient.[facility] the event this information is protected by the Federal Confidentiality of Alcohol and Drug Abuse Patient Records regulations: The Federal rules restrict any use of the information to criminally investigate or prosecute any alcohol or drug abuse patient.[facility] the event this information is protected by the Federal Confidentiality of Alcohol and Drug Abuse Patient Records regulations: The Federal rules restrict any use of the information to criminally investigate or prosecute any alcohol or drug abuse patient.[facility] the event this information is protected by the Federal Confidentiality of Alcohol and Drug Abuse Patient Records regulations: The Federal rules restrict any use of the information to criminally investigate or prosecute any alcohol or drug abuse patient.[facility] the event this information is protected by the Federal Confidentiality of Alcohol and Drug Abuse Patient Records regulations: The Federal rules restrict any use of the information to criminally investigate or prosecute any alcohol or drug abuse patient.[facility] the event this information is protected by the Federal Confidentiality of Alcohol and Drug Abuse Patient Records regulations: The Federal rules restrict any use of the information to criminally investigate or prosecute any alcohol or drug abuse patient.[facility] the event this information is protected by the Federal Confidentiality of Alcohol and Drug Abuse Patient Records regulations: The Federal rules restrict any use of the information to criminally investigate or prosecute any alcohol or drug abuse patient.[facility] the event this information is protected by the Federal Confidentiality of Alcohol and Drug Abuse Patient Records regulations: The Federal rules restrict any use of the information to criminally investigate or prosecute any alcohol or drug abuse patient.[facility] the event this information is protected by the Federal Confidentiality of Alcohol and Drug Abuse Patient Records regulations: The Federal rules restrict any use of the information to criminally investigate or prosecute any alcohol or drug abuse patient.[facility] the event this information is protected by the Federal Confidentiality of Alcohol and Drug Abuse Patient Records regulations: The Federal rules restrict any use of the information to criminally investigate or prosecute any alcohol or drug abuse patient.[facility] the event this information is protected by the Federal Confidentiality of Alcohol and Drug Abuse Patient Records regulations: The Federal rules restrict any use of the information to criminally investigate or prosecute any alcohol or drug abuse patient.[facility] the event this information is protected by the Federal Confidentiality of Alcohol and Drug Abuse Patient Records regulations: The Federal rules restrict any use of the information to criminally investigate or prosecute any alcohol or drug abuse patient.[facility] the event this information is protected by the Federal Confidentiality of Alcohol and Drug Abuse Patient Records regulations: The Federal rules restrict any use of the information to criminally investigate or prosecute any alcohol or drug abuse patient.[facility] the event this information is protected by the Federal Confidentiality of Alcohol and Drug Abuse Patient Records regulations: The Federal rules restrict any use of the information to criminally investigate or prosecute any alcohol or drug abuse patient.[facility] the event this information is protected by the Federal Confidentiality of Alcohol and Drug Abuse Patient Records regulations: The Federal rules restrict any use of the information to criminally investigate or prosecute any alcohol or drug abuse patient.[facility] the event this information is protected by the Federal Confidentiality of Alcohol and Drug Abuse Patient Records regulations: The Federal rules restrict any use of the information to criminally investigate or prosecute any alcohol or drug abuse patient.[facility] the event this information is protected by the Federal Confidentiality of Alcohol and Drug Abuse Patient Records regulations: The Federal rules restrict any use of the information to criminally investigate or prosecute any alcohol or drug abuse patient.[facility] the event this information is protected by the Federal Confidentiality of Alcohol and Drug Abuse Patient Records regulations: The Federal rules restrict any use of the information to criminally investigate or prosecute any alcohol or drug abuse patient.[facility] the event this information is protected by the Federal Confidentiality of Alcohol and Drug Abuse Patient Records regulations: The Federal rules restrict any use of the information to criminally investigate or prosecute any alcohol or drug abuse patient.[facility] the event this information is protected by the Federal Confidentiality of Alcohol and Drug Abuse Patient Records regulations: The Federal rules restrict any use of the information to criminally investigate or prosecute any alcohol or drug abuse patient.[facility] the event this information is protected by the Federal Confidentiality of Alcohol and Drug Abuse Patient Records regulations: The Federal rules restrict any use of the information to criminally investigate or prosecute any alcohol or drug abuse patient.[facility] Care Team (unrecognized sect ion and content) Team Status: Active Member Role Status Dates NON STAFF Primary Care Provider Active Team Status: Inactive Member Role Status Dates NON STAFF Primary Care Provider Active Start: September 15, 2024 End: September 15, 2024 Sailaja Anderson APRN Emergency Provider Active Start: September 15, 2024 End: September 15, 2024 Team Status: Inactive Member Role Status Dates NON STAFF Primary Care Provider Active Start: December 12, 2024 End: December 12, 2024 Jacob Baker MD Attending Provider Active St art: December 12, 2024 End: December 12, 2024 Team Status: Inactive Member Role Status Dates Jennie Durand , Primary Care Provider Active Sangeetha Peña MD Admit Provider Active Lindy Hdz Other Provider Active Krystal Romo , DO Other Provider Active Carolyne Schilling MD Other Provider Active Jamie Larsen , DO Other Provider Active Dorita Niño ANP-BC Other Provider Active Kenrick Lee , DO Other Provider Active Shasta Zaragoza APRN Other Provider Active Danielle Smith FENCE ERECTOR SUPERVISOR-C Other Provider Active Lizzeth Malave MD Attending [...] Zaragoza APRN Other Provider Active Danielle Smith FENCE ERECTOR SUPERVISOR-C Other Provider Active Lizzeth Malave MD Attending [...] Active Yoli Norris MD Emergency Provider Active Manager Orange Relationship Specialty Start Date End Date Jennie Durand, [address] [place] [id number] PCP - General Family Medicine 11/19/22 Team Status: Inactive Member Role Status Dates Jennie Durand , Primary Care Provider Active S tart: December 10, 2023 End: December 10, 2023 Marii Christiansen MD Emergency Provider Active Start: December 10, 2023 End: December 10, 2023 Team Status: Inactive Member Role Status Dates Jennie Durand DO Primary Care Provider Active S tart: December 24, 2023 End: December 24, 2023 Jose Maria Nair DO Emergency Provider Active St art: December 24, 2023 End: December 24, 2023 Team Status: Inactive Member Role Status Dates Jennie Durand DO Primary Care Provider Active S tart: December 31, 2023 End: December 31, 2023 Kenny Javed APRN Emergency Provider Active Start: December 31, 2023 End: December 31, 2023 Manager Orange Relationship Specialty [place] [address] [place] [address] PCP - General Family Medicine 01/04/24 Nilo Prado MD [address] [place] [address] Referring Gastroenterology 08/17/23 Manager Orange Relationship Specialty [place] [address] [place] [address] PCP - General Family Medicine 01/04/24 Nilo Prado MD [address] [place] [address] Referring Gastroenterology 08/17/23 Manager Orange Relationship Specialty [place] [address] [place] [address] PCP - General Family Medicine 01/04/24 Nilo Prado MD [address] [place] [address] 22668 Referring Gastroenterology 08/17/23 Manager Orange Relationship Specialty [place] [address] [place] [address] PCP - General Family Medicine 01/04/24 Nilo Prado MD [address] [place] [address] 18631 Referring Gastroenterology 08/17/23 Manager Orange Relationship Specialty Start Date End Date Elia Baires [address] [place] [address] PCP - General Family Medicine 01/04/24 Nilo Prado MD [address] [place] [address] Referring Gastroenterology 08/17/23 Manager Orange Relationship Specialty [place] [address] [place] [address] PCP - General Family Medicine 05/30/24 Nilo Prado MD [address] [place] [address] Referring Gastroenterology 08/17/23 Manager Orange Relationship Specialty [place] [address] [place] [address] PCP - General Family Medicine 05/30/24 Nilo Prado MD [address] [place] [address] Referring Gastroenterology 08/17/23 Manager Orange Relationship Specialty [place] [address] [place] [address] PCP - General Family Medicine 05/30/24 Nilo Prado MD [address] [place] [address] 17150 Referring Gastroenterology 08/17/23 Manager Orange Relationship Specialty Start Date End Date Tevin Carson [address] [place] [address] PCP - General Family Medicine 05/30/24 Nilo Prado MD [address] [place] [address] 11372 Referring Gastroenterology 08/17/23 Manager Orange Relationship Specialty Start [place] [address] [place] [address] PCP - General Family Medicine 05/30/24 Nilo Prado MD [address] [place] [address] 65324 Referring Gastroenterology 08/17/23 Manager Orange Relationship Specialty Start [place]DO [address] [place] [address] PCP - General Family Medicine 05/30/24 Nilo Prado MD [address] [place] [address] Referring Gastroenterology 08/17/23 Manager Orange Relationship Specialty [place] [address] [place] [address] PCP - General Family Medicine 05/30/24 Nilo Prado MD [address] [place] [address] 60719 Referring Gastroenterology 08/17/23 Manager Orange Relationship Specialty Start Date End Date Carson, Tevin [address] [place] [address] PCP - General Family Medicine 05/30/24 Nilo Prado MD [address] [place] [address] 90710 Referring Gastroenterology 08/17/23 Manager Orange Relationship Specialty [place] [address] [place] [address] PCP - General Family Medicine 05/30/24 Nilo Prado MD [address] [place] [address] 16580 Referring Gastroenterology 08/17/23 Manager Orange Relationship Specialty [place] [address] [place] [address] PCP - General Family Medicine 05/30/24 Nilo Prado MD [address] [place] [address]60 Referring Gastroenterology 08/17/23 Manager Orange Relationship Specialty [place] [address] [place] [address] PCP - General Family Medicine 05/30/24 Nilo Prado MD [address] [place] [address] 11651 Referring Gastroenterology 08/17/23 Manager Orange Relationship Specialty [place] [address] [place] [address] PCP - General Family Medicine 05/30/24 Nilo Prado MD [address] [place] [address]60 Referring Gastroenterology 08/17/23 [place] [address] [place] [address] [facility] 08/22/24 Manager Orange Relationship Specialty [place] [address] [place] [address] PCP - General Family Medicine 05/30/24 Nilo Prado MD [address] [place] [address]31 Referring Gastroenterology 08/17/23 [place] [address] [place] [address] [facility] 08/22/24 Manager Orange Relationship Specialty Start Date End Date Kurt Balbuena [facility] Family Medicine [address] [place] [address] 09/21/24 Manager Orange Relationship Specialty Start Date End Date Kurt Balbuena [facility] Family Medicine [address] [place] [address] 09/21/24 Team Status: Active Member Role Status Dates Jennie Durand DO Primary Care Provider Active S tart: July 03, 2024 Julio Peña DO Attending Provider Active Sta rt: July 03, 2024 Manager Orange Relationship Specialty Start Date End Date Kurt Balbuena [address] [address] 09/21/24 Manager Orange Relationship Specialty Start Date End Date Kurt Balbuena [address] [address] 09/21/24 Corby Larsen DO [address] [place] [phone] Referring Physician Neurology 09/27/24 Team Status: Inactive Member Role Status Dates NON STAFF Primary Care Provider Active Start: December 16, 2024 End: December 16, 2024 Corby Larsen DO Attending Provider Active Start: December 16, 2024 End: December 16, 2024 Manager Orange Relationship Specialty [place] [address] [place] [address] PCP - General Family Medicine 05/30/24 Nilo Prado MD [address] [place] [address] Referring Gastroenterology 08/17/23 Lisha Bianchi, C[employer]RIC.DESIGN TRANSFERRER [address] [place] [address] [facility] 12/16/24 Goals (unrecognized section and content) Goals may [...] BE BASED ON THE PRIMARY CLINICAL RECORDS. [facility]. provides no warranty or guarantee of the accuracy or completeness of information in this document.
--- NOTE | 2025-03-16 06:40 | CT_ITS ---
The [address] [address] Patient Name: LEILA HASSAN MRN: [id number] date: 1990 Sex: F Assigned Patient Location: ED.MAIN Current Patient Location: ED.MAIN Accession/Order Number: [id number] Exam Date: 03/16/2025 08:21 Report Date: 03/16/2025 08:26 At the request of: NEW DREW Procedure: CT head/brain wo con CT BRAIN WITHOUT CONTRAST: CLINICAL HISTORY: Left-sided headache with pain behind the left eye COMPARISON: 10/14/2023 TECHNIQUE: Contiguous axial unenhanced images were obtained through the brain. This CT exam was performed using one or more following dose reduction techniques: Automated exposure control, adjustment of the mA and/or kV according to patient size, or use of iterative reconstruction technique. FINDINGS: The ventricles are normal in size and position. There are no areas of abnormal attenuation. There is no hemorrhage, mass effect or extra-axial collections. Empty sella is again noted. There is minimal residual right ethmoid mucosal thickening. The remaining imaged paranasal sinuses and mastoid air cells are clear. CT/CT head/brain wo con IMPRESSION: NO ACUTE INTRACRANIAL ABNORMALITY. Impression dictated by: Gaye Peraza M.D. 03/16/2025 8:26 AM Dictation Location: [place] [address] Electronically authenticated by: [id number] Y Date: 03/16/2025 08:26
--- NOTE | 2025-03-16 06:41 | ED.GENADUL1 ---
HPI HPI - General Adult General Chief complaint: Eye Problems Stated complaint: PRESSURE IN LEFT EYE Time Seen by Provider: 03/16/25 06:37 Source: patient Limitations: no limitations History of Present Illness HPI narrative: cc - headache, hayes behind left eye Patient complains of left-sided headache with pain behind the left eye that started 2 days ago and worsened this morning. She has hx of intracranial HTN and is concerned that might have gotten worse . No prior history of migraines although she is supposed to be seen by the neurologist, she has not seen one recently. No nausea or vomiting. No fever or chills. She told me that she believes that the left eyelids and area around the eye are swollen but I do not note that on examination. No visual changes. No recent injury to the head or neck or face. Related Data Home Medications ?Medication ?Instructions ?Recorded ?Confirmed duloxetine 60 mg capsule,delayed 60 mg PO BID 06/10/23 01/23/25 release lamotrigine 25 mg tablet 100 mg PO QDAY 04/08/24 01/23/25 gabapentin 100 mg capsule 600 mg PO TID 01/23/25 01/23/25 trazodone 100 mg tablet 100 mg PO .qhs 01/23/25 01/23/25 Allergies Allergy/AdvReac Type Severity Reaction Status Date / Time buspirone (From BuSpar) Allergy Intermediate tachycardia Verified 03/16/25 06:33 aripiprazole (From Abilify) Allergy Unknown Verified 03/16/25 06:33 COCONUT Allergy Mild Hives Uncoded 08/15/24 14:56 Opioid HPI Opioid Management Most Recent Opioid Data: Last Pain Scale 3 01/23/25, 12:42 Ur Phencyclidine Scrn, (NEGATIVE) Negative 07/22/24, 13:51 PFSH PFSH Social History Smoking status: Current every day smoker Little interest or pleasure in doing things: not at all Feeling down, depressed, or hopeless: not at all Exam Narrative Exam Narrative: Nurses notes and vital signs reviewed and patient is not hypoxic. afebrile General: Well-appearing and in no apparent distress. Skin: Warm, dry, no pallor noted. No rash to the face or scalp. Head: Normocephalic, atraumatic. Neck: Supple, non-tender. No meningismus. No cervical lymphadenopathy Eye: Pupils are equal, round and EOMI. No scleral icterus. Left eye = I do not note any swelling of the upper or lower eyelids or of the periorbital tissue. No periorbital cellulitis. Mild pain with palpation in the area. Mild retro-orbital pain with palpation. Ears, Nose, Mouth, and Throat: No nasal mucosal hypertrophy, Oral mucosa is moist Cardiovascular: Regular Rate and Rhythm without murmur, gallop or rub. Respiratory: No accessory muscle use or respiratory distress. Lungs are clear to auscultation, no wheezing, rales or rhonchi Musculoskeletal: normal ROM Neurological: A&O x4. No cranial nerve dysfunction observed. No truncal ataxia. Moves all extremities. Sensation intact. Psychiatric: Cooperative and interactive. Normal mood and affect. Constitutional Vital Signs, click to edit/add: Last Vital Signs Temp 97.6 F 03/16/25 06:25 Pulse 78 03/16/25 06:25 Resp 16 03/16/25 06:25 BP 136/93 H 03/16/25 06:25 Pulse Ox 97 03/16/25 06:25 O2 Del Method Room Air 03/16/25 06:25 Course Vital Signs Vital signs: Vital Signs Temperature 97.6 F 03/16/25 06:25 Pulse Rate 78 03/16/25 06:25 Respiratory Rate 16 03/16/25 06:25 Blood Pressure 136/93 H 03/16/25 06:25 Pulse Oximetry 97 03/16/25 06:25 Oxygen Delivery Method Room Air 03/16/25 06:25 Temperature 97.6 F 03/16/25 06:25 Pulse Rate 78 03/16/25 06:25 Respiratory Rate 16 03/16/25 06:25 Blood Pressure 136/93 H 03/16/25 06:25 Pulse Oximetry 97 03/16/25 06:25 Oxygen Delivery Method Room Air 03/16/25 06:25 Medical Decision Making MDM Narrative Medical decision making narrative: Patient presents with headache on the left side of her head behind her left eye. She also complains that there is swelling of the left upper and lower eyelid although I do not note that on examination. No visual change. She has history of intracranial hypertension and she is concerned that I think that might be worse . I do not note any findings on examination consistent with periorbital cellulitis or any sort of retrobulbar infection or abscess. Patient was ordered to undergo CT scanning of the head to evaluate for any potential worrisome condition. She was ordered to receive IM Toradol and oral Zofran for her headache. Patient signed out to Dr. Hahn at 7 PM shift change for review of the CT result and reevaluation of the patient with determination of final disposition Discharge Plan Discharge Patient Disposition: Still a Patient
[2025-03-16] MEDS: KETOROLAC TROMETHAMINE 60 MG/2 ML VIAL IM (06:48)
[2025-03-16] MEDS: ONDANSETRON 4 MG RAPDIS TABLET SL (06:49)
--- NOTE | 2025-03-16 08:33 | ED.GENADUL1 ---
HPI HPI - General Adult General Chief complaint: Eye Problems Stated complaint: PRESSURE IN LEFT EYE Time Seen by Provider: 03/16/25 06:37 Source: patient Limitations: no limitations History of Present Illness HPI narrative: 34-year-old female presents to the emergency department and was initially seen by Dr. Gannon and signed out to me after discussing the case with him thoroughly. Please see his full history and physical exam. Related Data Home Medications ?Medication ?Instructions ?Recorded ?Confirmed duloxetine 60 mg capsule,delayed 60 mg PO BID 06/10/23 01/23/25 release lamotrigine 25 mg tablet 100 mg PO QDAY 04/08/24 01/23/25 gabapentin 100 mg capsule 600 mg PO TID 01/23/25 01/23/25 trazodone 100 mg tablet 100 mg PO .qhs 01/23/25 01/23/25 Allergies Allergy/AdvReac Type Severity Reaction Status Date / Time buspirone (From BuSpar) Allergy Intermediate tachycardia Verified 03/16/25 06:33 aripiprazole (From Abilify) Allergy Unknown Verified 03/16/25 06:33 COCONUT Allergy Mild Hives Uncoded 08/15/24 14:56 Opioid HPI Opioid Management Most Recent Opioid Data: Last Pain Scale 3 01/23/25, 12:42 Ur Phencyclidine Scrn, (NEGATIVE) Negative 07/22/24, 13:51 PFSH PFSH Social History Smoking status: Current every day smoker Little interest or pleasure in doing things: not at all Feeling down, depressed, or hopeless: not at all Exam Constitutional Vital Signs, click to edit/add: Last Vital Signs Temp 97.6 F 03/16/25 06:25 Pulse 78 03/16/25 06:25 Resp 16 03/16/25 06:25 BP 136/93 H 03/16/25 06:25 Pulse Ox 97 03/16/25 06:25 O2 Del Method Room Air 03/16/25 06:25 Course Vital Signs Vital signs: Vital Signs Temperature 97.6 F 03/16/25 06:25 Pulse Rate 78 03/16/25 06:25 Respiratory Rate 16 03/16/25 06:25 Blood Pressure 136/93 H 03/16/25 06:25 Pulse Oximetry 97 03/16/25 06:25 Oxygen Delivery Method Room Air 03/16/25 06:25 Temperature 97.6 F 03/16/25 06:25 Pulse Rate 78 03/16/25 06:25 Respiratory Rate 16 03/16/25 06:25 Blood Pressure 136/93 H 03/16/25 06:25 Pulse Oximetry 97 03/16/25 06:25 Oxygen Delivery Method Room Air 03/16/25 06:25 Medical Decision Making MDM Narrative Medical decision making narrative: CT is negative and she is released home. She was recommended follow-up with her neurologist and an eye physician. Treatment diagnosis and follow-up were discussed with the patient. Imaging Data CT scan - head: Radiologist's impression: ITS Impressions Head CT 03/16/25 06:40 IMPRESSION: NO ACUTE INTRACRANIAL ABNORMALITY. Impression dictated by: Gaye Peraza M.D. 03/16/2025 8:26 AM Dictation Location: [place] [address] Electronically authenticated by: [id number] Y Date: 03/16/2025 08:26 Discharge Plan Discharge Chief Complaint: Eye Problems Clinical Impression: Headache Patient Disposition: Home, Self-Care Time of Disposition Decision: 08:33 Condition: Good Mode of Transportation: Private Vehicle Prescriptions / Home Meds: No Action duloxetine 60 mg capsule,delayed release(DR/EC) 60 mg PO BID lamotrigine 25 mg tablet 100 mg PO QDAY gabapentin 100 mg capsule 600 mg PO TID trazodone 100 mg tablet 100 mg PO .[facility] Print Language: Nicaraguan Instructions: Acute Headache (ED) Referrals: KAYLEE AMES [Primary Care Provider, Unknown] - 1 week
== END 2025-03-16 08:39 | disposition home or self-care (01) ==
PROVIDERS: Emergency Provider Emergency Medicine
DX: R51.9 Headache, unspecified (principal); G93.2 Benign intracranial hypertension; F17.200 Nicotine dependence, unspecified, uncomplicated
CPT/HCPCS: 70450; 96372; 99284; J1885; Q0162

== ENCOUNTER 2025-04-08 08:27 | Emergency (ER) | payer MEDICARE, MEDICAID, SELFPAY ==
[2025-04-08 08:31] VITALS: BP 126/94; PULSE 89; TEMP 37.1; O2SAT 100; BMI 30.5
--- OUTSIDE RECORDS SUMMARY | 2025-04-08 08:38 | XMS_ITS | CCD ---
Author Organization [facility] ion Partnership [facility] Care Team Providers Care [place] Man Name Role Phone Jennie Durand Primary Care Provider [phone] LINDY COTE Attending Unavailable PROVIDER, UNKNOWN Admitting Unavailable PATIENT, SELF Referring Unavailable Jennie Durand Primary Care Provider Jennie Durand DO Primary Care Provider [phone] JENNIE DURAND Primary Care Unavailable Jennie Durand DO Primary Care Provider Unavailable Primary Care Provider UnavailAimee Renee Primary Care Physician Unavailable Primary Care Provider UnavailDO Jennie Pichardo Primary Care Provider MD Sangeetha Peña Admit Provider Lindy Hdz Other Provider Unavailable DO Krystal Romo Other Provider MD Carolyne Schilling Other Provider [phone] DO Jamie Larsen Other Provider DIANNE Niño-CHRIS Kevin Other Provider DO Kenrick Lee Other Provider CEDRIC Zaragoza Other Provider ASTON Smith Other Provider MD Lizzeth Malave Attending Provider DO Jamie Larsen Referring Provider DIANNE Niño-CHRIS Kevin Attending Provider Charisse Nakia Brock Primary Care Physician [phone] DR CAROLYNE RALPH Consulting Unavailable MISC, DR [...] MISC, DR VELASCO Primary Care Unavailable YOLI ALFODR Consulting Unavailable ALICJA, DR WILEY Gastelum Consulting [...] e Nakia Mcqueen Primary Care Physician Jennie Durand Primary Care Physician [phone] Durand, DO Jennie D Primary Care Provider Tupa, DO Jose Maria Blue Emergency Provider [phone] Ania Javed Unavailable Eve, Imad Unavailable Durand, DO Jennie D Primary Care Provider Turamses, DO Jose Maria Blue Emergency Provider MD Yoli Norris Emergency Provider GANESH CORDERO Referring Unavailable DURAND, JENNIE D Primary Care Unavailable MARII JOSUE Referring Unavailable DURAND, JENNIE D Primary Care Unavailable MAN, SHUMEMarina Attending Unavailable EILEEN ALVAREZ Attending Unavailable LEONELA AGUIRRE Referring Unavailable Durand DO, Jennie D Primary Care Provider GAMALIEL VICKERS Referring Unavailable DURAND, JENNIE D Primary Care Unavailable JOSUEMARII Referring Unavailable DURAND, JENNIE D Primary Care Unavailable MARII JOSUE Referring Unavailable DURAND, JENNIE D Primary Care Unavailable Durand, DO Jennie D Primary Care Provider [phone] MD Marii Christiansen Emergency Provider Turamses, DO [...] Unavailable Tevin Carson DO Primary Care Provider Unavailable Primary Care Provider Unavailbehzad e Unavailable Primary Care Provider Unavailabl e TIFFANIE MARADIAAG Primary Care Physician [facility] DO Natacha Unavailable ALEAH HOWARD Referring Unavailable ESHA, KURT A Primary Care Physician Esha, Kurt A Unavailable NON STAFF Primary Care Provider Unavailabl e Rosinae Sailaja STEELE Emergency Provider [phone] ESHA, KURT A Attending Unavailable ESHA, KURT A Admitting Unavailable ESHA, KURT A Attending Unavailable TIFFANIE MARADIAGA Primary Care Unavailable ESHA, KURT A Attending Unavailable Corby Larsen DO Unavailable [phone] ESHA, KURT A Attending Unavailable ESHA, KURT A Admitting Unavailable ESHA, KURT A Attending Unavailable ESHA, KURT A Attending Unavailable CORBY LARSEN Attending Unavailable CORBY LARSEN Attending Unavailable TEVIN [...] Care Unavailable NON STAFF Primary Care Provider Unavailbehzad e Rosinae Sailaja STEELE Emergency Provider Jacob Baker MD Attending Provider MARII JOSUE Referring Unavailable JENNIE DURAND Primary Care Unavailable NON STAFF Primary Care Provider UnavailCorby Godwin DO M Attending Provider ALEAH HOWARD Attending Unavailable Jose Roberto Card APRN.[facility], [facility] Unavailable MARII RICK Admitting Unavailable MARII RICK Attending Unavailable Bryan Avila Attending Unavailable MOLLY WAGNER Admitting Unavailable MOLLY WAGNER Referring Unavailable MOLLY WAGNER Attending Unavailable Babar Mayers Referring Unavailable Babar Mayers Attending Unavailable Babar Mayers Admitting Unavailable Durand, Jennie D Admitting Unavailable Durand, Jennie D Referring Unavailable Durand, Jennie D Attending Unavailable Kayley Danielsmobeatriz Consulting Unavailable MOLLY WAGNER Admitting Unavailable MOLLY WAGNER Referring Unavailable MOLLY WAGNER Attending Unavailable MD Fernandez Daniels Consulting Unavailable OthmKayley guzmanmobeatriz Consulting Unavailable [place], Jak W Referring Unavailable [place], Jak W Attending Unavailable [place], Jak W Admitting Unavailable Babar Mayers Attending Unavailable Babar Mayers Referring Unavailable Durand, Jennie D Attending Unavailable Durand, Jennie D Admitting Unavailable Rhiew, David B Referring Unavailable Rhiew, David B Attending Unavailable Rhiew, David B Admitting Unavailable Rhiew, David B Attending Unavailable Rhiew, David B Admitting Unavailable Bryan Avila Attending Unavailable Jose Correia Attending Unavailable ESHAKURT Attending Unavailable ESHA, KURT Lehman Attending Unavailable ESHA, KURT A Attending Unavailable Kate, Orlando Attending Unavailable Kate, Orlando Admitting Unavailable Rhiew, David B Referring Unavailable Kate, Orlando Attending Unavailable Kate, Orlando Admitting Unavailable Durand, Jennie D Referring Unavailable Kate, Orlando Referring Unavailable Kate, Orlando Attending Unavailable Kate, Orlando Admitting Unavailable Durand, Jennie D Referring Unavailable Durand, Jennie D Attending Unavailable BERNARD, MOLLY Referring Unavailable [place], Jak W Attending Unavailable [place], Jak W Attending Unavailable [place], Jak W Referring Unavailable KLONK MARII R Admitting Unavailable KLONK, MARII R Attending Unavailable Babar Mayers Attending Unavailable Durand, Jennie D Referring Unavailable Babar Mayers Admitting Unavailable Babar Mayers Attending Unavailable Babar Mayers Referring Unavailable Sami Brewster Attending Unavailable MOLLY WAGNER Referring Unavailable Corby Larsen Attending Unavailab le NON STAFF Primary Care Unavailable Corby Larsen Admitting Unavailab le NON STAFF Primary Care Unavailable Jacob Baker Admitting Unavailable Jacob Baker Attending Unavailable Lindy Keen Primary Care Unavailable Valente, Efrem Admitting Unavailab le Valente, Efrem Attending Unavailab le NON STAFF Primary Care Unavailable Sailaja Anderson Admitting Unavailable Sailaja Anderson Attending Unavailable Allergies Allergy Classification Reported Allergen(s) Allergy Type Date of Onset Reaction(s) Facility coconut allergenic extract (7 sources) coconut allergenic extract Drug Allergy 07-18-20 [facility] (20 sources) coconut allergenic extract; Translations: [Coconut Oil] Drug Allergy 07-18-20 Itching [place], [place] (19 sources) Coconut Flavor; Translations: [COCONUT FLAVOR] Propensity to adverse reactions to drug 05-09-20 Anaphylaxis [place] (1 source) SOAP; Translations: [SOAP] Propensity to adverse reactions to drug (disorder) [facility]-19 [facility] Pencils; Translations: [Unknown] Propensity to adverse reactions (disorder) 11-13-19 [facility] Repository (20 sources) Coconut extract; Translations: [coconut] Drug Allergy 07-18-20 Swelling [facility] (20 sources) ARIPiprazole lauroxil; Translations: [aripiprazole] Drug Allergy suicidal [facility] (20 sources) ARIPiprazole; Translations: [aripiprazole] Drug Allergy 08-19-20 22 Mental Status Change, Other: See Comments, Unknown, Other [facility] Comment on above: Pt states it makes h er suicidal. (1 source) ARIPiprazole Drug Allergy 10-30-19 23 [facility] Repository (20 sources) busPIRone; Translations: [Buspirone] Drug Allergy Unknown, palpitations [facility] (20 sources) buPROPion; Translations: [BUPROPION] Drug Allergy 07-16-20 21 Unknown, Other [facility] (12 sources) busPIRone; Translations: [buspirone] Drug Allergy 12-10-19 24 Palpitations [facility] (4 sources) Coconut Oil, Hydrogenated; Translations: [COCONUT OIL, HYDROGENATED] Propensity to adverse reactions 07-18-20 [facility] Work Phone: (5 sources) Coconut extract [...] Ordered Start: 08-08-2022 take 1 capsule by [facility] every four hours for headache [...] day(s), 7 tab(s), Refill(s) 0, [id number], 170, cm, 11/21/22 10:37:00 EST, Height/Length Dosing, [...] COCET) 5-325 MG per tablet 1 tablet [id number] actuat albuterol 0.09 mg/actuat metered dose [...] Status: Ordered baclofen 5 mg oral tablet (3 sources) gamma-Aminobutyric Acid-ergic Agonist Start: 03-03-2025 End: 04-02-2025 take 1 tablet by mouth three times daily as needed for pain baclofen 5 mg oral tablet 5 mg = 1 tab(s), Oral, TID, PRN Pain, X 30 day(s), # 90 tab(s), Refills(s) 0, Pharmacy: [facility]/pharmacy #[id number], 170, cm, 03/03/25 7:35:00 EDT, Height/Length Dosing, 90.4, kg, 02/17/25 18:58:00 EDT, Weight Dosing Start Date: 03/03/25 Stop Date: 04/02/25 Status: Ordered Quantity: 90.0 Unit: tab(s) Repeat number: 1 brompheniramine maleate 0.4 mg/ml / dextromethorphan hydrobromide 2 mg/ml / pseudoephedrine hydrochloride 6 mg/ml oral solution (3 sources) alpha-Adrenergic Agonist, Uncompetitive Q-iwvdrr-L-aspartat e Receptor Antagonist, Sigma-1 Agonist Start: 02-17-2025 take 10 mL by mouth four times daily Bromfed DM oral syrup 10 mL, Oral, QID for cold symptoms, 200 mL, Refill(s) 0, [facility]/pharmacy #[id number], 170, cm, 02/17/25 18:58:00 EDT, Height/Length [...] 0 Start Date: 07/01/21 Status: Ordered Vraylar (13 sources) Atypical Antipsychotic Start: 01-13-2025 Vraylar Oral, [...] day(s), # 42 tab(s), Refills(s) 0, Pharmacy: [facility]/pharmacy #[id number], 170, cm, 08/22/22 10:41:00 EST, [...] Ordered Start: 01-08-2019 take 1 capsule by [facility] twice daily DULoxetine (CYMBALTA) 60 mg capsule [...] 08, 2019 12:00am take 1 capsule by [facility] every eight hours Cymbalta 30 [...] TID, # 90 tab(s), Refills(s) 2, Pharmacy: [facility]/pharmacy #[id number], 170, cm, 01/13/25 8:29:00 EDT, Height/Length Dosing, 88.5, kg, 01/13/25 8:29:00 EDT, Weight Dosing Start Date: 01/13/25 Status: Ordered Quantity: 90.0 Unit: tab(s) Repeat number: 3 Indications: Radiculopathy, lumbar region; Start: 01-13-2025 gabapentin 300 mg, Oral, BID-TID, Refills(s) 0 Start Date: 01/13/25 Status: Ordered Repeat number: 1 Start: 10-14-2024 take 1 capsule by [facility] three times daily gabapentin 300 mg Cap 300 mg = 1 cap(s), Oral, TID, # 90 cap(s), Refills(s) 0, Pharmacy: [facility]/pharmacy #[id number], 170, cm, 10/14/24 9:02:00 EST, Height/Length [...] day(s), # 18 tab(s), Refills(s) 0, Pharmacy: [facility]/pharmacy #[id number], 170, cm, 10/18/24 8:12:00 EST, Height/Length [...] TAB PO Daily August 11, 2022 12:00am ujknjeohyvnf-zkt-abnj-FA-vit K (BARIATRIC MULTIVITAMINS) 45 mg iron- 800 mcg-120 mcg cap (20 sources) multivitamin-min -iron-FA-vit K (BARIATRIC MULTIVITAMINS) 45 mg iron- 800 mcg-120 mcg cap Take by mouth. Active multivitamin-min -iron-FA-vit K (BARIATRIC MULTIVITAMINS) 45 mg iron- 800 mcg- 120 mcg cap Take by mouth. 0 Active Comment on above: Take by mouth. btoiiccmplcl-vkn-ef on-FA-vit K (Bariatric Multivitamins) 45 mg iron- [...] day(s), # 20 tab(s), Refills(s) 0, Pharmacy: [facility]/pharmacy #[id number], 170, cm, 03/08/24 13:22:00 EDT, Height/Length Dosing, 89.4, kg, 03/08/24 13:22:00 EDT, Weight Dosing Start Date: 03/08/24 Stop Date: 03/18/24 Status: Ordered Start: 04-20-2022 take 1 tablet by juan manuel twice daily as needed for pain naproxen 500 mg Tab 500 mg = 1 tab(s), Oral, BID, PRN for pain, # 20 tab(s), Refills(s) 0, Pharmacy: [facility]/pharmacy #[id number], 170, cm, 04/20/22 15:01:00 EDT, Height/Length Dosing, 81.5, kg, 04/20/22 15:01:00 EDT, Weight Dosing Start Date: 04/20/22 Status: Ordered 24 hr nicotine 0.583 mg/hr transdermal system (1 source) Cholinergic Nicotinic Agonist Start: 11-03-2022 End: 01-02-2023 nicotine 14 mg/24 hr Transderm ER Film 1 patch(es), Topical, Daily for 30 day(s), 30 patch(es), Refill(s) 1, [facility]/pharmacy #[id number], 170, cm, 11/03/22 13:04:00 EST, [...] FOOD Start Date: 01/29/22 Status: Ordered nystatin [id number] unt/ml oral suspension (1 source) Polyene Antifungal [...] BID, # 6 tab(s), Refills(s) 1, Pharmacy: [facility]/pharmacy #[id number], 162, cm, 08/08/22 9:11:00 EST, [...] day(s), # 21 tab(s), Refills(s) 0, [id number], cm, 10/18/24 8:12:00 EST, Height/Length [...] day(s), # 60 cap(s), Refills(s) 0, [id number], cm, 11/15/24 13:59:00 EST, Height/Length [...] day(s), # 60 cap(s), Refills(s) 1, [id number] 170, cm, 11/15/24 13:59:00 EST, Height/Length [...] 31, 2023 12:00am for 4 weeks semaglutide (10 sources) Start: 01-27-2025 inject 2.4 mg by [...] with frequent/long duration piggyback infusions, Starting on [facility] 01/30/21 at 2157 Administer at the same [...] day(s), # 7 tab(s), Refills(s) 0, Pharmacy: [facility]/pharmacy #[id number], 170, cm, 01/31/22 16:58:00 EDT, [...] 08/27/2021 08/08/2024 Discontinued (Therapy completed) work excuse (2 sources) Start: 03-09-2025 work excuse work excuse, Patient [...] Nausea/Vomiting, # 12 tab(s), Refills(s) 0, Pharmacy: [facility]/pharmacy #[id number], 162, cm, 08/08/22 9:11:00 EST, Height/Length Dosing, 83.1, kg, 08/08/22 9:11:00 EST, Weight Dosing Start Date: 08/08/22 Status: Ordered Completed/Discontinued Medications Medication Drug Class(es) Dates Sig (Normalized) Sig (Original) acetaminophen 325 mg / HYDROcodone bitartrate 5 mg oral tablet (2 sources) Opioid Agonist End: 08-08-2024 take 1 tablet by mouth every six hours as needed HYDROcodone-acetami nophen ([place]) 5-325 mg tablet Take 1 tablet by [...] Comment on above: Take 1 capsule by [facility] twice daily. Start from 500mg [...] D2) 1,250 mcg (50,000 unit) capsule Discontinued [id number] UNIT PO every week July 19, 2020 1:00am August 19, 2022 8:39am Start: 07-19-2020 End: 08-19-2022 take 91859 [IU] by mouth every week Ergocalciferol (Vitamin D2) Discontinued 81334 UNIT PO every week July 19, 2020 [...] (20 sources) Opioid Antagonist Start: 08-15-2023 End: 12-31-2023 [...] Episodic Comment on above: noted in 09/16/2024 [facility] Records page 5. added per OP [...] Other detention (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; Translations: [OTH AUTOMATIC BLOCKER CURRENT DRUG THERAPY] Onset: 3 Episodic Other [...] site] 09-21-2024 Episodic Other connective tissue disease (20 sources) Muscle weakness 09-26-2024 Episodic Other connective [...] 4 01-31-2024 Chronic Other nervous system disorders (20 sources) Chronic pain syndrome 09-30-2024 Chronic Other nervous system disorders (1 source) Postoperative pain ; Translations: [Other acute postprocedural pain] Episodic Other nervous system disorders (1 source) Dysphasia; Translations: [Dysphasia] Onset: 3 Episodic Other nervous system disorders (4 sources) Ataxia; Translations: [Ataxia, unspecified] 09-21-2024 Episodic Other nutritional; endocrine; and metabolic disorders [...] 01-31-2024 01-31-2024 Episodic Other nervous system disorders (1 source) Ataxia, unspecified; Translations: [Ataxia, unspecified] Onset: 12-16-2024 Episodic Other nutritional; endocrine; and metabolic disorders [...] Test Name Value Interpretation Reference Range Facility Event Monitoron 03-15-2025 Event Monitor Event Monitor TWO-WEEK EVENT MONITOR DATES OF STUDY: 02/17/2025 to 03/01/2025 REFERRING PHYSICIAN: Jak Peace M.D. INDICATION: Palpitations. FINDINGS: 1. Predominant rhythm was sinus bradycardia, sinus rhythm, sinus tachycardia. 2. Minimum heart rate 57 beats per minute, average heart rate 90 beats per minute, maximum heart rate 159 beats per minute. 3. Eight patient events with symptoms of chest pain or pressure, dizziness, shortness of breath. 4. No secondary arrhythmias noted. 5. Total supraventricular ectopic beats are 2351 or 0.22% including couplet, bigeminy, trigeminy, and quadrigeminy. 6. Total ventricular ectopics are 2556 beats or 0.24% including couplet, trigeminy. Normal axis, normal intervals. There was no correlation with her symptoms with abnormal cardiac rhythm. READ BY: terrell Arredondo Dictated: 03/10/2025 [id number] Transcribed: 03/14/2025 cc:*Jak Peace M.D. [facility] Comment on above: Result Comment: Elec tronically Signed By: Lio BHAKTA, Catalino Baker\.br\Date and Time Signed: 03/15/25 07:49 EDT Main OR Intraoperative Recor don 03-03-2025 Main OR Intraoperative Record Main OR Intraoperative Record IntraOp Document Type FTPM Summary Primary Physician: Babar Mayers DO Finalized Date/Time: 03/03/25 08:45:29 Pt. Name: KARIN CHOUDION Montgomery/Sex: 1990 Female Med Rec #: [id number] Physician: Babar Mayers DO Financial #: [id number] Pt. Type: P Room/Bed: / Admit/Disch: 03/03/25 07:21:36 - Institution: Case Times FTPM Entry 1 Patient Times In Room 03/03/25 08:33:00 Out Room 03/03/25 08:45:00 Procedure Times Start 03/03/25 08:36:00 Stop 03/03/25 08:44:00 Anesthesia Times Last Modified By: Corby Rand RN 03/03/25 08:44:14 Case Attendance FTPM Entry 1 Entry 2 Entry 3 Case Attendee Babar Mayers DO, RN, Corby Burrows RN, Lulu Bellamy Role Performed Surgeon - Primary Aircraft Delivery Checker - Primary Scrub - Primary Time In 03/03/25 08:33:00 03/03/25 08:33:00 03/03/25 08:33:00 Time Out 03/03/25 08:45:00 03/03/25 08:45:00 03/03/25 08:45:00 Procedure MEDIAL BRANCH MEDIAL BRANCH MEDIAL BRANCH BLOCK(Bilateral) BLOCK(Bilateral) BLOCK(Bilateral) Comments Last Modified By: Corby Rand RN, RN, Christopher Harvey RN, Christopher M 03/03/25 08:44:15 M 03/03/25 08:44:15 03/03/25 08:44:15 Entry 4 Case Attendee Isaac DAWN(Keshav)Amina Role Performed Channel Marketing Program Manager Time In 03/03/25 08:33:00 Time Out 03/03/25 [...] X-ray Applicable) PreOp Antibiotic No Time Out Corby Rand RN, Roderick RN, Talib Patino DO, Bradford A., Christman RT(R)Amina Time Out Complete 03/03/25 08:33:00 Outcomes Met? [...] and tissue Entry 1 Skin Integrity Intact, [place], Warm, & Skin Abnormality No Dry Outcomes [...] Checked Ye (more content not included)... Normal [facility] Main OR Preoperative Recordo n 03-03-2025 Main OR Preoperative Record Main OR Preoperative Record Holding Area Document Type FTPM Summary Primary Physician: Babar Mayers DO Finalized Date/Time: 03/03/25 07:33:54 Pt. Name: SHAZIA CHOU/Sex: 1990 Female Med Rec #: [id number] Physician: Babar Mayers DO Financial #: [id number] Pt. Type: P Room/Bed: / Admit/Disch: 03/03/25 07:21:36 - Institution: Case Times Holding FTPM Pre-Care Text: Verifies consent for planned procedure, identifies individual values and wishes concerning care, includes family members in perioperative teaching Secures patient's records' belongings, and valuables, maintains patient's dignity and privacy, and maintains patient confidentiality Entry 1 In Holding 03/03/25 07:28:00 Outcomes Met? Yes Last Modified By: Gabrielle Sultana RN 03/03/25 07:28:18 Post-Care Text: The patient participates [...] one bracelet and ten earrings. Pain Comment: 02/21 lower back pain Operative Site Yes Marking: [...] By: Gabrielle Sultana RN 03/03/25 07:[address] [facility] CBC w/Indiceson 03-02-2025 Erythrocyte distribution width (RBC) [Ratio] 14.4 % High 10.9-14.2 [facility] Comment on above: Performed By: #### 2 [id number] #### [facility] [address] [place] [address] Hematocrit (Bld) [Volume fraction] 39.0 % Normal 34.0-46.0 [facility] Comment on above: Performed By: #### 2 [id number] #### [facility] [address] [place] [address] Hemoglobin (Bld) [Mass/Vol] 13.2 g/dL Normal 12.0-16.0 [facility] Comment on above: Performed By: #### 2 [id number] #### [facility] [address] [place] [address] MCH (RBC) [Entitic mass] 33.5 pg Normal 27.0-34.0 [facility] Comment on above: Performed By: #### 2 [id number] #### [facility] [address] [place] [address] MCHC (RBC) [Mass/Vol] 33.8 g/dL Normal 31.4-36.0 [facility] Comment on above: Performed By: #### 2 [id number] #### [facility] [address] [place] [address] MCV (RBC) [Entitic vol] 99.1 fL Normal 80.0-100.0 [facility] Comment on above: Performed By: #### 2 [id number] #### [facility] [address] [place] [address] Platelet 325.0 E9/L Normal 150.0-500.0 [facility] Comment on above: Performed By: #### 2 [id number] #### [facility] [address] [place] [address] Platelet mean volume (Bld) [Entitic vol] 9.5 fL Normal 6.4-10.8 [facility] Comment on above: Performed By: #### 2 [id number] #### [facility] [address] [place] [address] RBC 3.9 E12/L Low 4.3-5.9 [facility] Comment on above: Performed By: #### 2 [id number] #### [facility] [address] [place] [address] RBC morphology finding Nom (Bld) NORMAL Invalid Interpretation Code [facility] Comment on above: Performed By: #### 2 [id number] #### [facility] [address] [place] [address] WBC 13.1 E9/L High 4.0-11.0 [facility] Comment on above: Performed By: #### 2 [id number] #### [facility] [address] [place] [address] CHEMISTRYOrdered By: SYSTEM SYSTEM on 03-02-2025 Ferritin [Mass/Vol] 11 ng/mL Normal 11 - 307 ng/mL Remisol Chem Iron [Mass/Vol] 156 ug/dL High 35 - 153 mcg/dL Remisol Chem Iron binding capacity [Mass/Vol] 403 ug/dL High 250 - 400 mcg/dL Remisol Chem Transferrin [Mass/Vol] 288 mg/dL Normal 200 - 370 mg/dL Remisol Chem Ferritinon 03-02-2025 Ferritin Lvl 11 ng/mL Normal 11-307 [facility] Comment on above: Performed By: #### 2 [id number] #### [facility] [address] [place] [address] HEMATOLOGYOrdered By: SYSTEM SYSTEM on 03-02-2025 Erythrocyte [...] Ironon 03-02-2025 Iron 156 microgram/dL High 35-153 [facility] Comment on above: Performed By: #### 2 [id number] #### [facility] [address] [place] [address] TIBC Calculatedon 03-02-2025 TIBC 403 microgram/dL High 250-400 [facility] Comment on above: Performed By: #### 1 [id number] #### [facility] [address] [place] [address] Transferrin [Mass/Vol] 288 mg/dL Normal 200-370 [facility] Comment on above: Performed By: #### 1 [id number] #### [facility] [address] [place] [address] ED Note-Physicianon 02-22-20 ED Note-Physician ED Note-Physician [...] and symmetry. No ataxia with finger-nose or hvbo-vn-ojyv. Intact strength and sensation of bilateral upper [...] unspecified) Dizzi (more content not included)... Normal [facility] Comment on above: Result Comment: Elec tronically Signed By: Ben Garber PA-C\.br\Date and Time Signed: 02/17/25 20:20 EDT\.br\Electronically Co-Signed By: Bakari Chester DO.br\Date and Time Co-Signed: 02/21/25 20:08 EDT XR [...] Faith DO Transcribed by: MARCO Technologist: DANISH Walters [facility] BMPon 02-17-2025 Anion gap [Moles/Vol] 14 mmol/L Normal 6-16 [facility] Comment on above: Performed By: #### 2 [id number] #### [facility] [address] [place] [address] BUN/Creat Ratio 16 No Units Normal 10-20 [facility] Comment on above: Performed By: #### 2 [id number] #### [facility] [address] [place] [address] Calcium [Mass/Vol] 10.4 mg/dL Normal 8.9-11.1 [facility] Comment on above: Performed By: #### 2 [id number] #### [facility] [address] [place] [address] Chloride [Moles/Vol] 105 mmol/L Normal 101-111 [facility] Comment on above: Performed By: #### 2 [id number] #### [facility] [address] [place] [address] CO2 [Moles/Vol] 21 mmol/L Normal 21-31 [facility] Comment on above: Performed By: #### 2 [id number] #### [facility] [address] [place] [address] Creatinine [Mass/Vol] 0.7 mg/dL Normal 0.5-1.3 [facility] Comment on above: Performed By: #### 2 [id number] #### [facility] [address] [place] [address] Glucose [Mass/Vol] 109 mg/dL Normal 55-199 [facility] Comment on above: Performed By: #### 2 [id number] #### [facility] [address] [place] [address] Potassium [Moles/Vol] 3.8 mmol/L Normal 3.5-5.3 [facility] Comment on above: Performed By: #### 2 [id number] #### [facility] [address] [place] [address] Sodium [Moles/Vol] 136 mmol/L Normal 135-145 [facility] Comment on above: Performed By: #### 2 [id number] #### [facility] [address] [place] [address] Urea nitrogen [Mass/Vol] 11 mg/dL Normal 5-21 [facility] Comment on above: Performed By: #### 2 [id number] #### [facility] [address] [place] [address] CBC w/ Auto Diffon 5 Basophil Absolute 0.0 E9/L Normal 0.0-0.2 [facility] Comment on above: Performed By: #### 2 [id number] #### [facility] [address] [place] [address] Basophils/100 WBC (Bld) 0.3 % Normal 0.0-2.0 [facility] Comment on above: Performed By: #### 2 [id number] #### [facility] [address] [place] [address] Eos Absolute 0.0 E9/L Normal 0.0-0.5 [facility] Comment on above: Performed By: #### 2 [id number] #### [facility] [address] [place] [address] Eosinophils/100 WBC (Bld) 0.2 % Normal 0.0-8.0 [facility] Comment on above: Performed By: #### 2 [id number] #### [facility] [address] [place] [address] Erythrocyte distribution width (RBC) [Ratio] 14.2 % Normal 10.9-14.2 [facility] Comment on above: Performed By: #### 2 [id number] #### [facility] [address] [place] [address] Hematocrit (Bld) [Volume fraction] 40.2 % Normal 34.0-46.0 [facility] Comment on above: Performed By: #### 2 [id number] #### [facility] [address] [place] [address] Hemoglobin (Bld) [Mass/Vol] 13.6 g/dL Normal 12.0-16.0 [facility] Comment on above: Performed By: #### 2 684234 #### [facility] [address] [place] [address] Lymph Absolute 1.4 E9/L Normal 1.0-4.0 [facility] Comment on above: Performed By: #### 2 [id number] #### [facility] [address] [place] [address] Lymphocytes/100 WBC (Bld) 16.5 % Normal 14.0-50.0 [facility] Comment on above: Performed By: #### 2 837377 #### [facility] [address] [place] [address] MCH (RBC) [Entitic mass] 32.6 pg Normal 27.0-34.0 [facility] Comment on above: Performed By: #### 2 600323 #### [facility] [address] [place] [address] MCHC (RBC) [Mass/Vol] 33.8 g/dL Normal 31.4-36.0 [facility] Comment on above: Performed By: #### 2 [id number] #### [facility] [address] [place] [address] MCV (RBC) [Entitic vol] 96.4 fL Normal 80.0-100.0 [facility] Comment on above: Performed By: #### 2 702930 #### [facility] [address] [place] [address] Dupage Absolute 0.5 E9/L Normal 0.2-1.0 [facility] Comment on above: Performed By: #### 2 980065 #### [facility] [address] [place] [address] Monocytes/100 WBC (Bld) 5.7 % Normal 4.0-14.0 [facility] Comment on above: Performed By: #### 2 391557 #### [facility] [address] [place] [address] Neutro Absolute 6.5 E9/L Normal 2.0-7.5 [facility] Comment on above: Performed By: #### 2 824914 #### [facility] [address] [place] [address] Neutro Auto 77.3 % High 36.0-75.0 [facility] Comment on above: Performed By: #### 2 563177 #### [facility] [address] [place] [address] Platelet 350.0 E9/L Normal 150.0-500.0 [facility] Comment on above: Performed By: #### 2 735531 #### [facility] [address] [place] [address] Platelet mean volume (Bld) [Entitic vol] 9.3 fL Normal 6.4-10.8 [facility] Comment on above: Performed By: #### 2 580216 #### [facility] [address] [place] [address] RBC 4.2 E12/L Low 4.3-5.9 [facility] Comment on above: Performed By: #### 2 119569 #### [facility] [address] [place] [address] WBC 8.4 E9/L Normal 4.0-11.0 [facility] Comment on above: Performed By: #### 2 751687 #### [facility] [address] [place] [address] CHEMISTRYOrdered By: SYSTEM SYSTEM on 02-17-2025 Albumin [...] Sensitivity Troponin I Instructions For Use, Carter Newcomb, April 2018) Urea nitrogen [Mass/Vol] 11 mg/dL Normal 5 - 21 mg/dL [facility] Urea nitrogen/Creatinine [Mass ratio] 16 mg/mg Normal 10 - 20 [facility] COAGULATIONOrdered By: Peng Kahn on 02-17-2025 aPTT Coag (PPP) [Time] 30.7 s Normal 25.1 - 36.5 second(s) [facility] Auto Coag Comment on above: Interpretive Data: [...] the same coagulation reagent and instrumentation as [facility]. Currently there are no coagulation studies available worldwide for children to 14 days, and no normal ranges. Heparin therapeutic range (represented by Anti-Factor Xa activity of 0.2 - 0.4 U/mL) corresponds to PTT of 56.6 - 109.0 sec. INR Coag (PPP) [Relative time] 0.88 {INR} Invalid Interpretation Code [facility] Auto Coag Comment on above: Interpretive Data: I NR results are specifically intended to assess patients stabilized on long-term Anticoagulation therapy suggested INR s Less Intensive Anticoagulation 2.0 3.0 Conventional Range 3.0 4.5 PT Coag (PPP) [Time] 9.8 s Normal 9.4 - 1 2.5 second(s) [facility] Auto Coag Comment on above: Interpretive Data: [...] the same coagulation reagent and instrumentation as [facility]. Currently there are no coagulation studies available worldwide for children to 14 days, and no normal ranges. ED Clinical Summaryon 2024 ED Clinical Summary ED Clinical Summary [place] [id number] ED Clinical Summary Person Information Name: SHAZIA CHOU [facility] Age: 34 Years : 1990 Sex: Female Language: Indonesian PCP: Jennie Durand DO Marital Status: Phone: [phone] Visit Id: Visit Reason: Headache; Cough; Dizziness; [...] 02/17/2025 21:08:51 02/17/2025 21:08:51 02/17/2025 21:08:51 ADDRESS: [address] [place] [id number] PHYS DOC NOTES: MEDICAL INFORMATION: Prescriptions Given: New Medications [id number], [address], [place] [id number], [phone] brompheniramine/dextrom ethorphan/PSE (Bromfed DM oral syrup) 10 [...] Adult Follow up: With: Address: When: Jennie [address] [place] [address] Business (1) In 3 days 02/20/2025 DIAGNOSIS: Bronchitis; Cough; Dizziness; Vasovagal near syncope Normal [facility] ED Patient Summaryon 025 ED Patient Summary ED Patient Summary [address] [address] Patient Discharge Instructions Person Information Name: SHAZIA CHOU Age: 34 Years Arrival Date: 02/17/2025 18:53:55 Discharge Diagnosis: Bronchitis; Cough; Dizziness; Vasovagal near syncope Primary Care Physician: Jennie Durand DO Provider Information Primary Provider: Bakari Chester DO Advanced Recreation Leader:Ben Garber PA-C The exam and treatment you received in the Emergency Department were for an urgent problem and are not intended as complete care. It is important that you follow up with a doctor, nurse practitioner, or physician???s assistant dean for ongoing care. If your symptoms become worse or you do not improve as expected and you are unable to reach your usual health care provider, you should return to the Emergency Department. We are available 24 hours a day. SHAZIA CHOU has been given the following list of patient education materials, prescriptions and follow-up instructions: Follow-up Instructions: With: Address: When: Jennie Rob[address]son, [address] [place] [address] Business (1) In 3 days 02/20/2025 In the event that this physician does not participate in your insurance network, please consult with your insurance company to find a nearby participating provider. Patient Education Materials: Near-Syncope; Acute Bronchitis, Adult A MESSAGE TO ALL PATIENTS REGARDING OPIOIDS PRESCRIPTION OPIOIDS: WHAT YOU NEED TO KNOW Prescription opioids can be used to help relieve htmudoee-kv-hqczpk pain and are often prescribed following a [...] from the Food and Drug Administration (www.fda.gov/Drugs/Reso taraForJenarou). ??? Visit www.cdc.gov/drugoverdos e to learn about the risks of opioids abuse and overdose. ??? If you believe you may be struggli (more content not included)... Normal [facility] HEMATOLOGYOrdered By: SYSTEM SYSTEM on 02-17-2025 Basophils/100 [...] 02-17-2025 Albumin [Mass/Vol] 4.5 g/dL Normal 3.3-5.0 [facility] Comment on above: Performed By: #### 2 [id number] #### [facility] [address] [place] [address] Albumin/Globulin [Mass ratio] 1.5 {ratio} Normal 1.1-2.2 [facility] Comment on above: Performed By: #### 2 [id number] #### [facility] [address] [place] [address] Alk Phos 55 Int._Unit/L Normal 21-98 [facility] Comment on above: Performed By: #### 2 423772 #### [facility] [address] [place] [address] ALT 12 Int._Unit/L Normal 6-46 [facility] Comment on above: Performed By: #### 2 782897 #### [facility] [address] [place] [address] AST 17 Int._Unit/L Normal 5-43 [facility] Comment on above: Performed By: #### 2 152376 #### [facility] [address] [place] [address] Bili Direct 0.1 mg/dL Normal 0.0-0.4 [facility] Comment on above: Performed By: #### 2 084161 #### [facility] [address] [place] [address] Bili Indirect 0.3 mg/dL Normal 0.1-0.9 [facility] Comment on above: Performed By: #### 2 442211 #### [facility] [address] [place] [address] Bili Total 0.4 mg/dL Normal 0.0-1.1 [facility] Comment on above: Performed By: #### 2 255823 #### [facility] [address] [place] [address] Globulin (S) [Mass/Vol] 3.0 g/dL Normal 1.4-4.0 [facility] Comment on above: Performed By: #### 2 782004 #### [facility] [address] [place] [address] Protein [Mass/Vol] 7.5 g/dL Normal 6.0-7.8 [facility] Comment on above: Performed By: #### 2 881353 #### [facility] [address] [place] [address] Magnesiumon 02-17-2025 Magnesium [Mass/Vol] 1.8 mg/dL Normal 1.3-2.4 [facility] Comment on above: Performed By: #### 2 872819 #### [facility] [address] [place] [address] PT & PTTon 02-17-2025 INR Coag (PPP) [Relative time] 0.88 {INR} Invalid Interpretation Code [facility] Comment on above: Result Comment: INR results are specifically intended to assess patients stabilized on long-term Anticoagulation therapy suggested INR???s ???Less Intensive Anticoagulation??? 2.0 ??? 3.0 Conventional Range 3.0 ??? 4.5 Performed By: #### 1 [id number] #### [facility] [address] [place] [address] PT 9.8 second(s) Normal 9.4-12.5 [facility] Comment on above: Result Comment: 15 d ays - 4 weeks 1 - 5 months 6 -11 months 1- 5 years 6-10 years 11 -17 years Mean: 11.2 (9.5-12.6) Mean: 11.0 (9.7-12.8) Mean: 11.0 (9.8-13.0) Mean: 11.3 (9.9-13.4) Mean: 11.7 (10.0-14.6) Mean: 11.8 (10.0 - 14.1) Pediatric Reference ranges were obtained from a study by fanta Snyder prepared from 1437 samples obtained at 7 different centers using the same coagulation reagent and instrumentation as [facility]. Currently there are no coagulation studies available worldwide for children to 14 days, and no normal ranges. Performed By: #### 1 [id number] #### [facility] [address] [place] [address] PTT 30.7 second(s) Normal 25.1-36.5 [facility] Comment on above: Result Comment: Para meter 15 days - 4 weeks 1 - 5 months 6 - 11 months 1 - 5 years 6 - 10 years 11 - 17 years PTT Mean: 35.4 (27.6-45.6) Mean: 33.5 (24.8-40.7) Mean: 32.4 (25.1-40.7) Mean: 31.6 (24.0-39.2) Mean: 31.6 (26.9-38.7) Mean: 31.0 (24.6-38.4) Pediatric Reference ranges were obtained from a study by fanta Snyder prepared from 1437 samples obtained at 7 different centers using the same coagulation reagent and instrumentation as [facility]. Currently there are no coagulation studies available worldwide for children to 14 days, and no normal ranges. Heparin therapeutic range (represented by Anti-Factor Xa activity of 0.2 - 0.4 U/mL) corresponds to PTT of 56.6 - 109.0 sec. Performed By: #### 1 [id number] #### [facility] [address] [place] [address] Pre-Arrival Noteon 5 Pre-Arrival Note Pre-Arrival Note Pre-Arrival Summary Name: , EDUARDA Current Date: 02/17/2025 18:54:29 EDT Gender: Female Date of : Age: 34 Pre-Arrival Type: EMS ETA: 02/17/2025 19:10:00 EDT Primary Care Physician: Presenting Problem: dizziness Pre-Arrival User: Service RNLibby Referring Source: Location: [place] Completion Date/Time: 02/17/2025 18:40:00 [facility] Emergency Department Pre-Hospital Report Form Vital Signs: Pre-Hospital Report: Treatment in Route: Response to Treatment: Misc. Issues: Normal [facility] Troponin 0 Hr.on 02-17-2025 Troponin HS <2.30 Low 10.10-27.10 [facility] Comment on above: Result Comment: The 95% CI (Confidence Interval) PPV (Positive Predictive Value) for myocardial infarction in females is 38 pg/mL, in males 51 pg/mL. The results should be used in conjunction with clinical conditions of myocardial infarction. (Access High Sensitivity Troponin I Instructions For Use, Carter Newcomb, April 2018) Performed By: #### 1 [id number] #### [facility] [address] [place] [address] UA with Cult Rflxon 02-18-20 25 Color (U) Light-Yellow Normal Yellow [facility] Comment on above: Result Comment: Micr oscopic readings are only performed on those samples that meet specific criteria set forth by [facility]. Performed By: #### 4 [id number] #### [facility] [address] [place] [address] Glucose (U) [Mass/Vol] Negative Normal Negative [facility] Comment on above: Performed By: #### 4 [id number] #### [facility] [address] [place] [address] Ketones Ql (U) Negative Normal Negative [facility] Comment on above: Performed By: #### 4 [id number] #### [facility] [address] [place] [address] UA Blood Negative Normal Negative [facility] Comment on above: Performed By: #### 4 [id number] #### [facility] [address] [place] [address] UA Bacteria Trace Normal Trace [facility] Comment on above: Performed By: #### 4 [id number] #### [facility] [address] [place] [address] UA Clarity Clear Normal Clear [facility] Comment on above: Performed By: #### 4 [id number] #### [facility] [address] [place] [address] UA Leuk Est 25 Keven/uL Normal Negative [facility] Comment on above: Performed By: #### 4 [id number] #### [facility] [address] [place] [address] UA Mucous Negative Normal Negative [facility] Comment on above: Performed By: #### 4 [id number] #### [facility] [address] [place] [address] UA Nitrite Negative Normal Negative [facility] Comment on above: Performed By: #### 4 [id number] #### [facility] [address] [place] [address] UA pH 7.5 Invalid Interpretation Code 5.0-9.0 [facility] Comment on above: Performed By: #### 4 [id number] #### [facility] [address] [place] [address] UA Protein Negative Normal Negative [facility] Comment on above: Performed By: #### 4 [id number] #### [facility] [address] [place] [address] UA RBC 0-3 Normal 0-3 [facility] Comment on above: Performed By: #### 4 [id number] #### [facility] [address] [place] [address] UA Spec Grav 1.006 Invalid Interpretation Code 1.005-1.030 [facility] Comment on above: Performed By: #### 4 [id number] #### [facility] [address] [place] [address] UA Squam Epithelial 3-[address] [facility] Comment on above: Performed By: #### 4 [id number] #### [facility] [address] [place] [address] UA Transitional Epithelial 0-2 Normal 0-2 [facility] Comment on above: Performed By: #### 4 [id number] #### [facility] [address] [place] [address] UA Urobilinogen Negative Normal Negative [facility] Comment on above: Performed By: #### 4 [id number] #### [facility] [address] [place] [address] UA WBC 0-5 Normal 0-5 [facility] Comment on above: Performed By: #### 4 [id number] #### [facility] [address] [place] [address] Urobilinogen (U) [Mass/Vol] Negative Normal Negative [facility] Comment on above: Performed By: #### 4 [id number] #### [facility] [address] [place] [address] UA Spec Desc Clean Catch Normal [facility] Comment on above: Performed By: #### 4 [id number] #### [facility] [address] [place] [address] URINALYSISOrdered By: SYSTEM SYSTEM on 02-17-2025 Bacteria Auto Ql (U) Trace /HPF Normal Trace/HPF [facility] UA Auto SS Bilirubin Ql (U) Negative Normal Negativemg/ d L [facility] UA Auto SS Clarity (U) Clear (02/17/25 7:24 PM) Normal Clear [facility] UA Auto SS Color (U) Light-Yellow 1 (02/17/25 7:24 PM) Normal Yellow [facility] UA Auto SS Comment on above: Interpretive Data: M icroscopic readings are only performed on those samples that meet specific criteria set forth by [facility]. Epithelial cells.squamous Auto (Urine sed) [#/Area] 3-4 graded/HPF Invalid Interpretation Code [facility] UA Auto SS Glucose Ql (U) Negative Normal Negativemg/d L [facility] UA Auto SS Hemoglobin Auto test strip (U) [Mass/Vol] Negative Normal Negativemg/d L [facility] UA Auto SS Ketones Auto test strip Ql (U) Negative Normal Negativemg/d L [facility] UA Auto SS Leukocyte esterase Auto test strip Ql (U) 25 Keven/uL Keven/uL Normal NegativeLeu/ uL [facility] UA Auto SS Mucus Auto Ql (U) Negative Normal Negativegr ad ed/LPF [facility] UA Auto SS Nitrite Auto test strip Ql (U) Negative Normal Negativemg/d L [facility] UA Auto SS pH (U) 7.5 *NA* (02/17/25 7:24 PM) Invalid Interpretation Code 5.0 - 9.0 [facility] UA Auto SS Protein Ql (U) Negative Normal Negativemg/d L [facility] UA Auto SS RBC Ql (U) 0-3 graded/HPF Normal 0-3graded/HP F [facility] UA Auto SS Specific gravity (U) [Rel density] 1.006 *NA* (02/17/25 7:24 PM) Invalid Interpretation Code 1.005 - 1.030 [facility] UA Auto SS Transitional cells Computer assisted (U) [#/Area] 0-2 graded/HPF Normal 0-2graded/HP F [facility] UA Auto SS Urobilinogen (U) [Mass/Vol] Negative Normal Negativemg/d L [facility] UA Auto SS WBC Auto (Urine sed) [#/Area] 0-5 graded/HPF Normal 0-5graded/HP F [facility] UA Auto SS URINALYSISOrdered By: Ben Garber on 02-17-2025 UA Spec Desc Clean Catch (6/6/25 7:24 PM) Normal [facility] UA Auto SS eGFRon 02-17-2025 eGFR 115 mL/min/1.73 m2 Normal >=59 [facility] Comment on above: Performed By: #### 1 [id number] #### [facility] [address] [place] [address] Heart and Vascular Office/Cl inic Noteon 02-16-2025 [...] beat which represents less than 0.01%. 7. FL interval 0.15 second, QRS 0.10 second, QT [...] office for sooner appointment for acute concerns. Marina Ware personally transcribed this note for on [...] Foot, Foot, Gastric (more content not included)... [facility] Comment on above: Result Comment: Elec tronically [...] Snyder MD Transcribed by: MARCO Technologist: MELYSSA Normal [facility] Holter Monitoron 02-13-2025 Holter Monitor Holter Monitor [...] beat which represents less than 0.01%. 7. FL interval 0.15 second, QRS 0.10 second, QT 0.40 second at heart rate of 64 beats per minute. READ BY: terrell Hernandez Dictated: 02/10/2025 [id number] Transcribed: 02/13/2025 [facility] Comment on above: Result Comment: Elec tronically Signed By: Jeremiah BHAKTA, Fernandez\.br\Date and Time Signed: 02/13/25 18:05 EDT Main OR Intraoperative Recor don 01-24-2025 Main OR Intraoperative Record Main OR Intraoperative Record IntraOp Document Type [facility] Summary Primary Physician: Babar Mayers DO Finalized Date/Time: 01/24/25 09:58:05 Pt. Name: SHAZIA CHOU/Sex: 1990 Female Med Rec #: [id number] Physician: Babar Mayers DO Financial #: [id number] Pt. Type: P Room/Bed: / Admit/Disch: 01/24/25 [...] Corby Blue Role Performed Surgeon - Primary Aircraft Delivery Checker - Primary Scrub - Primary Time In 01/24/25 09:48:00 01/24/25 09:48:00 01/24/25 09:48:00 Time Out 01/24/25 09:58:00 01/24/25 09:58:00 01/24/25 09:58:00 Procedure MEDIAL BRANCH MEDIAL BRANCH MEDIAL BRANCH BLOCK(Bilateral) BLOCK(Bilateral) BLOCK(Bilateral) Comments Last Modified By: Nolvia Rodas RN, RN, Madison A Pritchard RN, Madison A 01/24/25 09:57:49 01/24/25 09:57:49 01/24/25 09:57:49 Entry 4 Case Attendee Jennie Hurtado Role Performed Channel Marketing Program Manager Time In 01/24/25 09:48:00 Time Out 01/24/25 09:58:00 Procedure MEDIAL BRANCH BLOCK(Bilateral) Comments Last Modified By: Nolvia Rodas RN 01/24/25 09:57:49 Perioperative Protocols [facility] [...] Rodas RN, Harvey RN, Talib Lynch DO, Babar Gramajo, Jennie Hurtado Time Out Complete 01/24/25 09:51:00 [...] and tissue Entry 1 Skin Integrity Intact, [place], Warm, & Skin Abnormality No Dry Outcomes [...] ROLLE, Vu (more content not included)... Normal [facility] Main OR Preoperative Recordo n 01-24-2025 Main OR Preoperative Record Main OR Preoperative Record Holding Area Document Type [facility] Summary Primary Physician: Babar Mayers DO Finalized Date/Time: 01/24/25 08:43:59 Pt. Name: SHAZIA CHOU/Sex: 1990 Female Med Rec #: [id number] Physician: Babar Mayers DO Financial #: [id number] Pt. Type: P Room/Bed: / Admit/Disch: 01/24/25 [...] Sultana RN 01/24/25 08:41:00 Finalized By: Gabrielle Slutana RN Document Signatures Signed By: Gabrielle Sultana RN 01/24/25 08:[address] [facility] MR head/brain wo/w cheriseon MR head/brain wo/w cherise [facility] Main [address] [address] MRI Report Signed Patient: Shazia Chou MR#: [id number] : 1990 Acct:[id number] Age/Sex: 33 / F ADM Date: 12/16/24 Loc: MR Room: Type: [facility] CLI Attending Dr: Corby Larsen DO Copies to: [...] Denny Escalante M.D.12/16/2024 2:50 PM Dictation Location: [place] [address] Transcribed By: [facility] 12/16/24 1450 Dictated By: Denny Escalante MD 12/16/24 1404 Signed By: 12/16/24 1450 Normal [facility] Magnetic resonance imaging r eportOrdered By: Denny Escalante on 12-16-2024 Study report [facility] [place] [address] MRI Report Signed Patient: Shazia Chou MR#: [id number] : 1990 Acct:[id number] Age/Sex: 33 / F ADM Date: 5 Loc: MR Room: Type: [facility] CLI Attending Dr: Corby Larsen DO Copies to: Corby Larsen DO~ Ordering Provider: Corby Larsen DO Date of [...] Denny Escalante M.D.12/16/2024 2:50 PM Dictation Location: [facility] Transcribed By: [facility] 12/16/24 5010 Dictated By: Denny Escalante MD 12/16/24 1404 Signed By: 12/16/24 1450 [facility] Work Phone: XR Spine Lumbar Complete [...] Zazueta FINAL REPORT Dictated: 12/14/2024 1:53 pm Signer Julio BHAKTA Signed (Electronic Signature): 12/14/2024 1:53 pm Signed by: Julio Snyder MD Transcribed by: MARCO Technologist: CHAN Walters [facility] 24 hour urine albumin/total protein ratio by electrophoresisOrdered By: Jacobparmjit Baker on 12-12-2024 Albumin Elph (24H U) [Mass fraction] Albumin/Protein.total in 24 hour Urine by Electrophoresis . [facility] 24 hour urine gamma globulin /total protein ratio by electrophoresisOrdered By: Jacob Olivia on 12-12-2024 Gamma globulin Elph (24H U) [Mass fraction] Gamma globulin/Protein.total in 24 hour Urine by Electrophoresis . [facility] [facility] 24 hour urine protein monocl onal/total protein by electrophoresisOrdered By: Jacobparmjit Baker on 12-12-2024 Protein.monoclonal Elph (24H U) [Mass fraction] Protein.monoclonal/Prot ein.total in 24 hour Urine by Electrophoresis Not Observed [facility] CYNDI Antinuclear Antibodieson 12-12-2024 Antinuclear Abs, IFA Negative Normal . [facility] Comment on above: Result Comment: Nega tive <1:80 Borderline 1:80 Positive >1:80 ICAP nomenclature: AC-0 For more information about Hep-2 cell patterns use ANApatterns.org, the official website for the International Consensus on Antinuclear Antibody (CYNDI) Patterns (ICAP). Performed at: [facility] [id number] Technical Producer: Santy Storey PhD, Phone: [phone] Performed By: #### A DNA, SJOGRENS, HELM, C3, HISAB, CCP, CHROMATIN, CENTROME, RA, CYNDI, [id number], JO1, B2 GLYPROT, ANTIR, CARDIO GMA, C4, CH50 ####[facility] , Result Comment: Nega tive <1:80 Borderline 1:80 Positive >1:80 ICAP nomenclature: AC-0 For more information about Hep-2 cell patterns use ANApaTradoriaerPhotolitec.org, the official website for the International Consensus on Antinuclear Antibody (CYNDI) Patterns (ICAP). Performed at: [facility] [place] [id number] Technical Producer: Santy Storey PhD, Phone: [phone] PERFORMED BY: [place] [address] [place] [address] PATHOLOGIST DEBRIDGING MACHINE OPERATOR CARLOS KNAPP M.D. Performed By: #### A NA ####[facility] , Alanine aminotransferase [En zymatic activity/volume] in Serum or PlasmaOrdered By: Jacob Baker on 12-12-2024 ALT [Catalytic activity/Vol] Alanine aminotransferase [Enzymatic activity/volume] in Serum or Plasma 7-52 [facility] Albumin [Mass/volume] in Ser um or Plasma by Bromocresol green (BCG) dye binding methoOrdered By: Jacob Baker on 12-12-2024 Albumin BCG dye [Mass/Vol] Albumin [Mass/volume] in Serum or Plasma by Bromocresol green (BCG) dye binding metho 3.5-5.7 [facility] Alkaline phosphatase [Enzyma tic activity/volume] in Serum or PlasmaOrdered By: Jacob Baker on 12-12-2024 ALP [Catalytic activity/Vol] Alkaline phosphatase [Enzymatic activity/volume] in Serum or Plasma 34-104 [facility] Anti-Centromere B Antibodies on 12-12-2024 Anti-Centromere B Antibodies <0.2 Normal 0.0-0.9 [facility] Comment on above: Result Comment: Perf ormed at: - [facility] [address] [id number] Technical Producer: Santy Storey PhD, Phone: [phone] Performed By: #### A DNA, SJOGRENS, HELM, C3, HISAB, CCP, CHROMATIN, CENTROME, RA, CYNDI, [id number], JO1, B2 GLYPROT, ANTIR, CARDIO GMA, C4, CH50 ####[facility] , Anti-RNPon 12-12-2024 Anti-ENVIRONMENTAL GEOLOGIST <0.2 Normal 0.0-0.9 [facility] Comment on above: Performed By: #### A DNA, SJOGRENS, HELM, C3, HISAB, CCP, CHROMATIN, CENTROME, RA, CYNDI, [id number], JO1, B2 GLYPROT, ANTIR, CARDIO GMA, C4, CH50 ####[facility] , Anti-Helm Antibodieson 11-14 Anti-Helm Antibodies <0.2 Normal 0.0-0.9 [facility] Comment on above: Performed By: #### A DNA, SJOGRENS, HELM, C3, HISAB, CCP, CHROMATIN, CENTROME, RA, CYNDI, [id number], JO1, B2 GLYPROT, ANTIR, CARDIO GMA, C4, CH50 ####[facility] , Anti-dsDNA(DBL)Abon 12-13-19 25 Anti-dsDNA(DBL)Ab 1 [IU]/mL Normal 0-9 [facility] Comment on above: Result Comment: Nega tive <5 Equivocal 5 - 9 Positive >9 Performed By: #### A DNA, SJOGRENS, HELM, C3, HISAB, CCP, CHROMATIN, CENTROME, RA, CYNDI, [id number], JO1, B2 GLYPROT, ANTIR, CARDIO GMA, C4, CH50 ####[facility] , Anticardiolipin IgG/M/A, Qno n 12-12-2024 Anticardiolipin Ab, IgA,Qn <9 Normal 0-11 [facility] Comment on above: Result Comment: Nega tive: <12 Indeterminate: 12 - 20 Low-Med Positive: >20 - 80 High Positive: >80 Performed By: #### A DNA, SJOGRENS, HELM, C3, HISAB, CCP, CHROMATIN, CENTROME, RA, CYNDI, [id number], JO1, B2 GLYPROT, ANTIR, CARDIO GMA, C4, CH50 ####[facility] , Anticardiolipin Ab, IgG,Qn <9 Normal 0-14 [facility] Comment on above: Result Comment: Nega tive: <15 Indeterminate: 15 - 20 Low-Med Positive: >20 - 80 High Positive: >80 Performed By: #### A DNA, SJOGRENS, HELM, C3, HISAB, CCP, CHROMATIN, CENTROME, RA, CYNDI, [id number], JO1, B2 GLYPROT, ANTIR, CARDIO GMA, C4, CH50 ####[facility] , Anticardiolipin Ab, IgM,Qn <9 Normal 0-12 [facility] Comment on above: Result Comment: Nega tive: <13 Indeterminate: 13 - 20 Low-Med Positive: >20 - 80 High Positive: >80 Performed By: #### A DNA, SJOGRENS, HELM, C3, HISAB, CCP, CHROMATIN, CENTROME, RA, CYNDI, [id number], JO1, B2 GLYPROT, ANTIR, CARDIO GMA, C4, CH50 ####[facility] , Appearance of UrineOrdered B y: Jacob Olivia on 12-12-2024 Appearance (U) Urine appearance Clear [facility] Aspartate aminotransferase [ Enzymatic activity/volume] in Serum or PlasmaOrdered By: Jacob Olivia on 12-12-2024 AST [Catalytic activity/Vol] Aspartate aminotransferase [Enzymatic activity/volume] in Serum or Plasma 13-39 [facility] Bacteria [Presence] in Urine by AutomatedOrdered By: Jacob Baker on 12-12-2024 Bacteria Auto Ql (U) Bacteria [Presence] in Urine by Automated None Seen [facility] Basophils Auto (Bld) [#/Vol] Ordered By: Jacob Baker on 12-12-2024 Basophils (Bld) [#/Vol] Automated basophil count 0.0-0.2 [facility] Basophils/100 WBC Auto (Bld) Ordered By: Jacob Baker on 12-12-2024 Basophils/100 WBC (Bld) Automated basophil % . [facility] Beta 2 Glycoprotein I Ab IgG /Mon 12-12-2024 Beta 2 Glycoprotein I Ab, IgG <9 Normal 0-20 [facility] Comment on above: Result Comment: Resu lt Units: GPI IgG units The reference interval reflects a 3SD or 99th percentile interval, which is thought to represent a potentially clinically significant result in accordance with the International Consensus Statement on the classification criteria for definitive antiphospholipid syndrome (APS). J Thromb Haem 2006;4:295-306. Performed By: #### A DNA, SJOGRENS, HELM, C3, HISAB, CCP, CHROMATIN, CENTROME, RA, CYNDI, [id number], JO1, B2 GLYPROT, ANTIR, CARDIO GMA, C4, CH50 ####[facility] , Beta 2 Glycoprotein I Ab, IgM <9 Normal 0-32 [facility] Comment on above: Result Comment: Resu lt Units: GPI IgM units The reference interval reflects a 3SD or 99th percentile interval, which is thought to represent a potentially clinically significant result in accordance with the International Consensus Statement on the classification criteria for definitive antiphospholipid syndrome (APS). J Thromb Haem 2006;4:295-306. Performed at: - [facility] [address] [id number] Technical Producer: Santy Storey PhD, Phone: [phone] Performed By: #### A DNA, SJOGRENS, HELM, C3, HISAB, CCP, CHROMATIN, CENTROME, RA, CYNDI, [id number], JO1, B2 GLYPROT, ANTIR, CARDIO GMA, C4, CH50 ####[facility] , Beta 2 glycoprotein 1 IgG Ab [Units/volume] in SerumOrdered By: Jacob Baker on 12-12-2024 Beta 2 glycoprotein 1 IgG Qn (S) Beta 2 glycoprotein 1 IgG Ab [Units/volume] in Serum 0-20 [facility] Comment on above: Result Units: GPI [...] [Presence] in Urine by Test strip Negative [facility] Bilirubin.total [Mass/volume ] in Serum or PlasmaOrdered By: Jacob Baker on 12-12-2024 Bilirubin [Mass/Vol] Bilirubin.total [Mass/volume] in Serum or Plasma 0.3-1.0 [facility] C reactive protein [Mass/vol ume] in Serum or PlasmaOrdered By: Jacob Baker on 12-12-2024 CRP [Mass/Vol] C reactive protein [Mass/volume] in Serum or Plasma 0.0-0.5 [facility] C-Reactive Proteinon 025 CRP [Mass/Vol] mg/L Normal 0.0-0.5 [facility] Comment on above: Performed By: #### M G, ESR, CMP, HS TROP, PTT, TSH3, T4F, ETOH, PT #### [facility] [address] [place] [address] [facility] Calcium [Mass/volume] in Ser um or PlasmaOrdered By: Jacob Baker on 12-12-2024 Calcium [Mass/Vol] Calcium [Mass/volume ] in Serum or Plasma 8.6-10.3 [facility] Carbon dioxide, total [Moles /volume] in Serum or PlasmaOrdered By: Jacob Baker on 12-12-2024 CO2 [Moles/Vol] Carbon dioxide, tota l [Moles/volume] in Serum or Plasma 21.0-31.0 [facility] Chloride [Moles/volume] in S tushar or PlasmaOrdered By: Jacob Baker on 12-12-2024 Chloride [Moles/Vol] Chloride [Moles/vol ume] in Serum or Plasma 98-107 [facility] Chromatin Antibodyon 025 Chromatin Antibody <0.2 Normal 0.0-0.9 [facility] Comment on above: Result Comment: PERF ORMED BY: [place] [id number] PATHOLOGIST DEBRIDGING MACHINE OPERATOR CARLOS KNAPP M.D. Performed By: #### A DNA, SJOGRENS, HELM, C3, HISAB, CCP, CHROMATIN, CENTROME, RA, CYNDI, [id number], JO1, B2 GLYPROT, ANTIR, CARDIO GMA, C4, CH50 ####[facility] , Coagulation Profileon 2024 aPTT Coag (Bld) [Time] 29.5 s Normal 25.1-36.5 [facility] Comment on above: Result Comment: A he matocrit value greater than 55% may lead to inaccurate results in coagulation testing. Patients having hematocrit values >55% require a special collection tube for coagulation studies. Please contact the laboratory at [phone] for redraw instructions. PERFORMED BY: [address] [place] [address] PATHOLOGIST DEBRIDGING MACHINE OPERATOR CARLOS KNAPP M.D. Performed By: #### M G, ESR, CMP, HS TROP, PTT, TSH3, T4F, ETOH, PT #### [address] INR Coag (PPP) [Relative time] 0.8 {INR} Normal [facility] Comment on above: Result [...] 3 - 4.5 Performed By: #### M G, ESR, CMP, HS TROP, PTT, TSH3, T4F, ETOH, PT #### [place] [id number] [facility] PT Coag (PPP) [Time] 9.6 s Normal 9.0-12.9 [facility] Comment on above: Result Comment: A he matocrit value greater than 55% may lead to inaccurate results in coagulation testing. Patients having hematocrit values >55% require a special collection tube for coagulation studies. Please contact the laboratory at [phone] for redraw instructions. Performed By: #### M G, ESR, CMP, HS TROP, PTT, TSH3, T4F, ETOH, PT #### [place] [id number] [facility] Color Auto (U)Ordered By: Stephany Baker on 12-12-2024 Color (U) Color of Urine by Auto Yellow [facility] Complement C3on 12-12-2024 Complement C3 133 mg/dL Normal 82-167 [facility] Comment on above: Performed By: #### A DNA, SJOGRENS, HELM, C3, HISAB, CCP, CHROMATIN, CENTROME, RA, CYNDI, [id number], JO1, B2 GLYPROT, ANTIR, CARDIO GMA, C4, CH50 ####[facility] , Complement C4on 12-12-2024 Complement C4 23 mg/dL Normal 12-38 [facility] Comment on above: Performed By: #### A DNA, SJOGRENS, HELM, C3, HISAB, CCP, CHROMATIN, CENTROME, RA, CYNDI, [id number], JO1, B2 GLYPROT, ANTIR, CARDIO GMA, C4, CH50 ####[facility] , Complement Total (CH50)on Complement Total (CH50) >60 Normal >41 [facility] Comment on above: Result [...] determine out of range values. Performed at: [place] [id number] Technical Producer: Santy Storey PhD, Phone: [phone] PERFORMED BY: [place] [address] PATHOLOGIST DEBRIDGING MACHINE OPERATOR CARLOS KNAPP M.D. Performed By: #### A DNA, SJOGRENS, HELM, C3, HISAB, CCP, CHROMATIN, CENTROME, RA, CYNDI, [id number], JO1, B2 GLYPROT, ANTIR, CARDIO GMA, C4, CH50 ####[facility] , Complete Blood Count Auto Di ffon 12-12-2024 Basophils (Bld) [#/Vol] 0.1 10*3/uL Normal 0.0-0.2 [facility] Comment on above: Performed By: #### M G, ESR, CMP, HS TROP, PTT, TSH3, T4F, ETOH, PT #### [address] Basophils/100 WBC (Bld) 0.8 % Normal . [facility] Comment on above: Performed By: #### M G, ESR, CMP, HS TROP, PTT, TSH3, T4F, ETOH, PT #### [address] Eosinophils (Bld) [#/Vol] 0.2 10*3/uL Normal 0.0-0.45 [facility] Comment on above: Performed By: #### M G, ESR, CMP, HS TROP, PTT, TSH3, T4F, ETOH, PT #### [address] Eosinophils/100 WBC (Bld) 2.0 % Normal . [facility] Comment on above: Performed By: #### M G, ESR, CMP, HS TROP, PTT, TSH3, T4F, ETOH, PT #### [address] Erythrocyte distribution width (RBC) [Ratio] 15.3 % Normal 11.9-15.3 [facility] Comment on above: Performed By: #### M G, ESR, CMP, HS TROP, PTT, TSH3, T4F, ETOH, PT #### [address] Hematocrit (Bld) [Volume fraction] 40.4 % Normal 34.0-46.4 [facility] Comment on above: Performed By: #### M G, ESR, CMP, HS TROP, PTT, TSH3, T4F, ETOH, PT #### [address] Hemoglobin (Bld) [Mass/Vol] 13.6 g/dL Normal 11.8-15.4 [facility] Comment on above: Performed By: #### M G, ESR, CMP, HS TROP, PTT, TSH3, T4F, ETOH, PT #### [address] Lymphocytes (Bld) [#/Vol] 1.8 10*3/uL Normal 1.00-4.8 [facility] Comment on above: Performed By: #### M G, ESR, CMP, HS TROP, PTT, TSH3, T4F, ETOH, PT #### [address] Lymphocytes/100 WBC (Bld) 18.1 % Normal . [facility] Comment on above: Performed By: #### M G, ESR, CMP, HS TROP, PTT, TSH3, T4F, ETOH, PT #### [address] MCH (RBC) [Entitic mass] 33.1 pg Normal 24.7-34.3 [facility] Comment on above: Performed By: #### M G, ESR, CMP, HS TROP, PTT, TSH3, T4F, ETOH, PT #### [address] MCV (RBC) [Entitic vol] 98.2 fL Normal 80-100 [facility] Comment on above: Performed By: #### M G, ESR, CMP, HS TROP, PTT, TSH3, T4F, ETOH, PT #### [address] Mean Corpuscular HGB Conc 33.7 g/dL Normal 32.0-35.0 [facility] Comment on above: Performed By: #### M G, ESR, CMP, HS TROP, PTT, TSH3, T4F, ETOH, PT #### [address] Monocytes (Bld) [#/Vol] 0.7 10*3/uL Normal 0.0-0.8 [facility] Comment on above: Performed By: #### M G, ESR, CMP, HS TROP, PTT, TSH3, T4F, ETOH, PT #### [address] Monocytes/100 WBC (Bld) 6.8 % Normal . [facility] Comment on above: Performed By: #### M G, ESR, CMP, HS TROP, PTT, TSH3, T4F, ETOH, PT #### [address] Neutrophils (Bld) [#/Vol] 7.1 10*3/uL Normal 1.8-7.7 [facility] Comment on above: Performed By: #### M G, ESR, CMP, HS TROP, PTT, TSH3, T4F, ETOH, PT #### [facility] [address] Neutrophils/100 WBC (Bld) 72.3 % Normal . [facility] Comment on above: Performed By: #### M G, ESR, CMP, HS TROP, PTT, TSH3, T4F, ETOH, PT #### [facility] [address] NRBC% 0.0 /100{WBC} Normal 0-0.5 [facility] Comment on above: Performed By: #### M G, ESR, CMP, HS TROP, PTT, TSH3, T4F, ETOH, PT #### [facility] [address] Platelet mean volume (Bld) [Entitic vol] 9.6 fL Normal 6.3-10.7 [facility] Comment on above: Performed By: #### M G, ESR, CMP, HS TROP, PTT, TSH3, T4F, ETOH, PT #### [facility] [address] [place] [address] [place] Platelets (Bld) [#/Vol] 297 10*3/uL Normal 150-450 [facility] Comment on above: Performed By: #### M G, ESR, CMP, HS TROP, PTT, TSH3, T4F, ETOH, PT #### [facility] [address] [place] [address] [place] RBC (Bld) [#/Vol] 4.11 10*6/uL Normal 3.60-5.00 [facility] Comment on above: Performed By: #### M G, ESR, CMP, HS TROP, PTT, TSH3, T4F, ETOH, PT #### [facility] [address] [place] [address] [place] WBC (Bld) [#/Vol] 9.8 10*3/uL Normal 3.8-11.6 [facility] Comment on above: Performed By: #### M G, ESR, CMP, HS TROP, PTT, TSH3, T4F, ETOH, PT #### [address] Comprehensive Metabolic Pane jak 12-12-2024 Albumin [Mass/Vol] 4.7 g/dL Normal 3.5-5.7 [facility] Comment on above: Performed By: #### M G, ESR, CMP, HS TROP, PTT, TSH3, T4F, ETOH, PT #### [address] Albumin/Globulin [Mass ratio] 1.7 {ratio} Normal [facility] Comment on above: Performed By: #### M G, ESR, CMP, HS TROP, PTT, TSH3, T4F, ETOH, PT #### [address] ALP [Catalytic activity/Vol] 69 U/L Normal 34-104 [facility] Comment on above: Performed By: #### M G, ESR, CMP, HS TROP, PTT, TSH3, T4F, ETOH, PT #### [address] ALT [Catalytic activity/Vol] 20 U/L Normal 7-52 [facility] Comment on above: Performed By: #### M G, ESR, CMP, HS TROP, PTT, TSH3, T4F, ETOH, PT #### [address] Anion gap [Moles/Vol] 13.5 mmol/L Normal 6.0-15.0 [facility] Comment on above: Performed By: #### M G, ESR, CMP, HS TROP, PTT, TSH3, T4F, ETOH, PT #### [address] AST [Catalytic activity/Vol] 23 U/L Normal 13-39 [facility] Comment on above: Performed By: #### M G, ESR, CMP, HS TROP, PTT, TSH3, T4F, ETOH, PT #### [address] Bilirubin [Mass/Vol] 0.3 mg/dL Normal 0.3-1.0 [facility] Comment on above: Performed By: #### M G, ESR, CMP, HS TROP, PTT, TSH3, T4F, ETOH, PT #### [address] Calcium [Mass/Vol] 10.3 mg/dL Normal 8.6-10.3 [facility] Comment on above: Performed By: #### M G, ESR, CMP, HS TROP, PTT, TSH3, T4F, ETOH, PT #### [address] Chloride [Moles/Vol] 103 mmol/L Normal 98-107 [facility] Comment on above: Performed By: #### M G, ESR, CMP, HS TROP, PTT, TSH3, T4F, ETOH, PT #### [address] CO2 [Moles/Vol] 28.8 mmol/L Normal 21.0-31.0 [facility] Comment on above: Performed By: #### M G, ESR, CMP, HS TROP, PTT, TSH3, T4F, ETOH, PT #### [address] Creatinine [Mass/Vol] 0.66 mg/dL Normal 0.60-1.20 [facility] Comment on above: Performed By: #### M G, ESR, CMP, HS TROP, PTT, TSH3, T4F, ETOH, PT #### [address] GFR/1.73 sq M.predicted MDRD (S/P/Bld) [Vol rate/Area] mL/min/{1.73_m2} Normal [facility] Comment on above: Performed By: #### M G, ESR, CMP, HS TROP, PTT, TSH3, T4F, ETOH, PT #### [address] Globulin (S) [Mass/Vol] 2.8 g/dL Normal [facility] Comment on above: Performed By: #### M G, ESR, CMP, HS TROP, PTT, TSH3, T4F, ETOH, PT #### [facility] [address] Glucose [Mass/Vol] 77 mg/dL Normal 70-100 [facility] Comment on above: Result Comment: [place] Glucose Reference Range is dependent on time and content of last meal. Glucose of more than 200 mg/dL in a nonstressed, ambulatory subject supports the diagnosis of Diabetes Mellitus. ADA recommended reference range Performed By: #### M G, ESR, CMP, HS TROP, PTT, TSH3, T4F, ETOH, PT #### [address] Potassium [Moles/Vol] 4.3 mmol/L Normal 3.5-5.1 [facility] Comment on above: Performed By: #### M G, ESR, CMP, HS TROP, PTT, TSH3, T4F, ETOH, PT #### [address] Protein [Mass/Vol] 7.5 g/dL Normal 6.0-8.5 [facility] Comment on above: Performed By: #### M G, ESR, CMP, HS TROP, PTT, TSH3, T4F, ETOH, PT #### [address] Sodium [Moles/Vol] 141 mmol/L Normal 136-145 [facility] Comment on above: Performed By: #### M G, ESR, CMP, HS TROP, PTT, TSH3, T4F, ETOH, PT #### [address] Urea nitrogen [Mass/Vol] 12 mg/dL Normal 7-25 [facility] Comment on above: Performed By: #### M G, ESR, CMP, HS TROP, PTT, TSH3, T4F, ETOH, PT #### [address] Creatine Kinaseon 12-12-2024 CK [Catalytic activity/Vol] 122 U/L Normal 30-223 [facility] Comment on above: Result Comment: PERF ORMED BY: [place] [address] PATHOLOGIST DEBRIDGING MACHINE OPERATOR CARLOS KNAPP M.D. Performed By: #### M G, ESR, CMP, HS TROP, PTT, TSH3, T4F, ETOH, PT #### [facility] [address] [place] [id number] [facility] Creatine kinase [Enzymatic a ctivity/volume] in Serum or PlasmaOrdered By: Jacob Baker on 12-12-2024 CK [Catalytic activity/Vol] Creatine kinase [Enzymatic activity/volume] in Serum or Plasma - [facility] Creatinine [Mass/volume] in Serum or PlasmaOrdered By: Jacob Baker on 12-12-2024 Creatinine [Mass/Vol] Creatinine [Mass/volume] in Serum or Plasma 0.60-1.20 [facility] Cyclic Citrulliated Pep Abon 12-12-2024 Cyclic Citrulliated Pep Ab 7 Normal 0-19 [facility] Comment on above: Result Comment: Nega tive <20 Weak positive 20 - 39 Moderate positive 40 - 59 Strong positive >59 Performed at: - [facility] [address] [id number] Technical Producer: Santy Storey PhD, Phone: [phone] Performed By: #### A DNA, SJOGRENS, HELM, C3, HISAB, CCP, CHROMATIN, CENTROME, RA, CYNDI, [id number], JO1, B2 GLYPROT, ANTIR, CARDIO GMA, C4, CH50 ####[facility] , DNA double strand Ab [Units/ volume] in SerumOrdered By: Jacob Baker on 12-12-2024 DNA double strand Ab Qn (S) DNA double strand Ab [Units/volume] in Serum 0-9 [facility] Comment on above: Negative <5 Equivoca l 5 - 9 Positive >9 Dipstick and Microscopicon 0 12-12-2024 Appearance (U) Clear Normal Clear [facility] Comment on above: Order Comment: Name Collection Type:: Clean-Voided Midstream Performed By: #### M G, ESR, CMP, HS TROP, PTT, TSH3, T4F, ETOH, PT #### [facility] [address] [place] [address] [place] Bacteria,Urine None Seen Normal None Seen [facility] Comment on above: Order Comment: Name Collection Type:: Clean-Voided Midstream Performed By: #### M G, ESR, CMP, HS TROP, PTT, TSH3, T4F, ETOH, PT #### [facility] [address] [place] [address] [place] Bilirubin,Urine Negative Normal Negative [facility] Comment on above: Order Comment: Name Collection Type:: Clean-Voided Midstream Performed By: #### M G, ESR, CMP, HS TROP, PTT, TSH3, T4F, ETOH, PT #### [facility] [address] [place] [address] [place] Color (U) Light-Yellow Normal Yellow [facility] Comment on above: Order Comment: Name Collection Type:: Clean-Voided Midstream Performed By: #### M G, ESR, CMP, HS TROP, PTT, TSH3, T4F, ETOH, PT #### [facility] [address] [place] [id number] [place] Glucose Ql (U) Normal Normal Normal [facility] Comment on above: Order Comment: Name Collection Type:: Clean-Voided Midstream Performed By: #### M G, ESR, CMP, HS TROP, PTT, TSH3, T4F, ETOH, PT #### [facility] [address] [place] [address] [place] Hyaline Casts,Urine None Normal 0-8 [facility] Comment on above: Order Comment: Name Collection Type:: Clean-Voided Midstream Performed By: #### M G, ESR, CMP, HS TROP, PTT, TSH3, T4F, ETOH, PT #### [facility] [address] [place] [id number] [place] Ketones Ql (U) Negative Normal Negative [facility] Comment on above: Order Comment: Name Collection Type:: Clean-Voided Midstream Performed By: #### M G, ESR, CMP, HS TROP, PTT, TSH3, T4F, ETOH, PT #### [address] Leukocyte esterase Test strip Ql (U) Negative Normal Negative [facility] Comment on above: Order Comment: Name Collection Type:: Clean-Voided Midstream Performed By: #### M G, ESR, CMP, HS TROP, PTT, TSH3, T4F, ETOH, PT #### [address] Mucus,Urine Rare Normal [facility] Comment on above: Order Comment: Name Collection Type:: Clean-Voided Midstream Result Comment: PERF ORMED BY: [place] [address] PATHOLOGIST DEBRIDGING MACHINE OPERATOR CARLOS KNAPP M.D. Performed By: #### M G, ESR, CMP, HS TROP, PTT, TSH3, T4F, ETOH, PT #### [address] Nitrite,Urine Negative Normal Negative [facility] Comment on above: Order Comment: Name Collection Type:: Clean-Voided Midstream Performed By: #### M G, ESR, CMP, HS TROP, PTT, TSH3, T4F, ETOH, PT #### [place] [address] [place] Occult Blood,Urine Negative Normal Negative [facility] Comment on above: Order Comment: Name Collection Type:: Clean-Voided Midstream Performed By: #### M G, ESR, CMP, HS TROP, PTT, TSH3, T4F, ETOH, PT #### [place] [address] [place] pH (U) 6.5 [pH] Normal 5.0-9.0 [facility] Comment on above: Order Comment: Name Collection Type:: Clean-Voided Midstream Performed By: #### M G, ESR, CMP, HS TROP, PTT, TSH3, T4F, ETOH, PT #### [address] Protein,Urine Negative Normal Negative [facility] Comment on above: Order Comment: Name Collection Type:: Clean-Voided Midstream Performed By: #### M G, ESR, CMP, HS TROP, PTT, TSH3, T4F, ETOH, PT #### [address] RBC,Urine 1-2 Normal 0-4 [facility] Comment on above: Order Comment: Name Collection Type:: Clean-Voided Midstream Performed By: #### M G, ESR, CMP, HS TROP, PTT, TSH3, T4F, ETOH, PT #### [address] Specificy [place],Urine 1.005 Normal 1.001-1.030 [facility] Comment on above: Order Comment: Name Collection Type:: Clean-Voided Midstream Performed By: #### M G, ESR, CMP, HS TROP, PTT, TSH3, T4F, ETOH, PT #### [place] [address] [place] Squamous Epithelial Cell,Urine 1-2 Normal 0-2 [facility] Comment on above: Order Comment: Name Collection Type:: Clean-Voided Midstream Performed By: #### M G, ESR, CMP, HS TROP, PTT, TSH3, T4F, ETOH, PT #### [address] Urobilinogen,Urine Normal Normal Normal [facility] Comment on above: Order Comment: Name Collection Type:: Clean-Voided Midstream Performed By: #### M G, ESR, CMP, HS TROP, PTT, TSH3, T4F, ETOH, PT #### [place] [address] [place] WBC,Urine 1-2 Normal 0-4 [facility] Comment on above: Order Comment: Name Collection Type:: Clean-Voided Midstream Performed By: #### M G, ESR, CMP, HS TROP, PTT, TSH3, T4F, ETOH, PT #### [facility] [address] Eosinophils Auto (Bld) [#/Vo l]Ordered By: Jacob Baker on 12-12-2024 Eosinophils (Bld) [#/Vol] Automated eosinophil count 0.0-0.45 [facility] Eosinophils/100 WBC Auto (Bl d)Ordered By: Jacob Baker on 12-12-2024 Eosinophils/100 WBC (Bld) Automated eosinophil % . [facility] Epithelial cells.squamous [# /area] in Urine sediment by Automated countOrdered By: Jacob Baker on 12-12-2024 Epithelial cells.squamous Auto (Urine sed) [#/Area] Epithelial cells.squamous [#/area] in Urine sediment by Automated count 0-2 [facility] Erythrocyte Sedimentation Ra don 12-12-2024 ESR (Bld) [Velocity] 19 mm/h Normal 0-19 [facility] Comment on above: Result Comment: PERF ORMED BY: [place] [address] PATHOLOGIST DEBRIDGING MACHINE OPERATOR CARLOS KNAPP M.D. Performed By: #### M G, ESR, CMP, HS TROP, PTT, TSH3, T4F, ETOH, PT #### [facility] [address] [place] [address] Erythrocyte distribution wid th Auto (RBC) [Ratio]Ordered By: Jacob Baker on 12-12-2024 Erythrocyte distribution width (RBC) [Ratio] Erythrocyte distribution width [Ratio] by Automated count 11.9-15.3 [facility] Erythrocyte sedimentation ra te by Photometric methodOrdered By: Jacob Baker on 12-12-2024 ESR Photometric method (Bld) [Velocity] Erythrocyte sedimentation rate by Photometric method 0-19 [facility] Erythrocytes [#/area] in Uri ne sediment by Automated countOrdered By: Jacob Baker on 12-12-2024 RBC Auto (Urine sed) [#/Area] Erythrocytes [#/area] in Urine sediment by Automated count 0-4 [facility] Free T4 (Free Thyroxine)on 0 12-12-2024 Free T4 [Mass/Vol] 0.84 ng/dL Normal 0.61-1.12 [facility] Comment on above: Performed By: #### M G, ESR, CMP, HS TROP, PTT, TSH3, T4F, ETOH, PT #### [facility] [address] Globulin Calc (S) [Mass/Vol] Ordered By: Jacob Baker on 12-12-2024 Globulin (S) [Mass/Vol] Serum globulin measurement by calculation (mass/volume) [facility] Glucose [Mass/volume] in Ser um or PlasmaOrdered By: Jacob Baker on 12-12-2024 Glucose [Mass/Vol] Glucose [Mass/volume ] in Serum or Plasma 70-100 [facility] Comment on above: ADA recommended refe [...] [Mass/volume] in Urine by Test strip Normal [facility] Hematocrit Auto (Bld) [Volum e fraction]Ordered By: Jacob Baker on 12-12-2024 Hematocrit (Bld) [Volume fraction] Hematocrit [Volume Fraction] of Blood by Automated count 34.0-46.4 [facility] Hemoglobin Test strip Ql (U) Ordered By: Jacob Baker on 12-12-2024 Hemoglobin Ql (U) Hemoglobin [Presence ] in Urine by Test strip Negative [facility] Hemoglobin [Mass/volume] in BloodOrdered By: Jacob Baker on 12-12-2024 Hemoglobin (Bld) [Mass/Vol] Hemoglobin [Mass/volume] in Blood 11.8-15.4 [facility] Histone Antibodieson 025 Histone Antibodies 1.4 High 0.0-0.9 [facility] Comment on above: Result Comment: Nega tive <1.0 Weak Positive 1.0 - 1.5 Moderate Positive 1.6 - 2.5 Strong Positive >2.5 Performed at: [address] [id number] Technical Producer: Anne Oro MD, Phone: [phone] Performed By: #### A DNA, SJOGRENS, HELM, C3, HISAB, CCP, CHROMATIN, CENTROME, RA, CYNDI, [id number], JO1, B2 GLYPROT, ANTIR, CARDIO GMA, C4, CH50 ####[facility] , Hyaline casts [#/area] in Ur ine sediment by Automated countOrdered By: Jacob Baker on 12-12-2024 Hyaline casts Auto (Urine sed) [#/Area] Hyaline casts [#/area] in Urine sediment by Automated count 0-8 [facility] INR in Platelet poor plasma by Coagulation assayOrdered By: Jacob Baker on 12-12-2024 INR Coag (PPP) [Relative time] INR in Platelet poor plasma by Coagulation assay [facility] Comment on above: INR Therapeutic Rang [...] Immunofixation (U) [Interp] Immunofixation for Urine . [facility] Comment on above: No monoclonality det ected.Performed at: [facility] [id number] Director: Santy Storey PhD, Phone: [phone] Immunofixation, (SYMONE), Urine on 12-12-2024 Immunofixation, (SYMONE), Urine Comment Normal . [facility] Comment on above: Result Comment: No m onoclonality detected. Performed at: [facility] [id number] Technical Producer: Santy Storey PhD, Phone: [phone] Performed By: #### M G, ESR, CMP, HS TROP, PTT, TSH3, T4F, ETOH, PT #### [facility] [address] [place] [address] [place] Immunofixation,Serumon 12-12 Immunofixation, Serum Comment Normal . [facility] Comment on above: Result Comment: No m onoclonality detected. Performed By: #### M G, ESR, CMP, HS TROP, PTT, TSH3, T4F, ETOH, PT #### [facility] [address] Immunoglobulin A, Serum 262 mg/dL Normal 87-352 [facility] Comment on above: Performed By: #### M G, ESR, CMP, HS TROP, PTT, TSH3, T4F, ETOH, PT #### [facility] [address] Immunoglobulin G 935 mg/dL Normal 586-1602 [facility] Comment on above: Performed By: #### M G, ESR, CMP, HS TROP, PTT, TSH3, T4F, ETOH, PT #### [place] [address] [place] Immunoglobulin M, Serum 110 mg/dL Normal 26-217 [facility] Comment on above: Result Comment: Perf ormed at: - [facility] [address] [id number] Technical Producer: Santy Storey PhD, Phone: [phone] Performed By: #### M G, ESR, CMP, HS TROP, PTT, TSH3, T4F, ETOH, PT #### [place] [address] [place] ES-1 Antibodyon 12-12-2024 ES-1 Antibody <0.2 Normal 0.0-0.9 [facility] Comment on above: Performed By: #### A DNA, SJOGRENS, HELM, C3, HISAB, CCP, CHROMATIN, CENTROME, RA, CYNDI, [id number], JO1, B2 GLYPROT, ANTIR, CARDIO GMA, C4, CH50 ####[facility] , Ketones Test strip Ql (U)Ord ered By: Jacob Baker on 12-12-2024 Ketones Ql (U) Ketones [Presence] i n Urine by Test strip Negative [facility] Leukocyte esterase [Presence ] in Urine by Test stripOrdered By: Jacob Baker on 12-12-2024 Leukocyte esterase Test strip Ql (U) Leukocyte esterase [Presence] in Urine by Test strip Negative [facility] Leukocytes [#/area] in Urine sediment by Automated countOrdered By: Jacob Chaneyrow on 12-12-2024 WBC Auto (Urine sed) [#/Area] Leukocytes [#/area] in Urine sediment by Automated count 0-4 [facility] Leukocytes [#/volume] correc caitlin for nucleated erythrocytes in Blood by Automated counOrdered By: Jacob Chaneyrow on 12-12-2024 WBC corrected for nucl RBC Auto (Bld) [#/Vol] Leukocytes [#/volume] corrected for nucleated erythrocytes in Blood by Automated coun 3.8-11.6 [facility] Lupus Anticoagulant Compon 0 12-12-2024 Dilute Prothrombin Time (dPt) 28.5 Normal 0.0-47.6 [facility] Comment on above: Performed By: #### M G, ESR, CMP, HS TROP, PTT, TSH3, T4F, ETOH, PT #### [facility] [address] dPT Confirm Ratio 1.09 Normal 0.00-1.34 [facility] Comment on above: Performed By: #### M G, ESR, CMP, HS TROP, PTT, TSH3, T4F, ETOH, PT #### [facility] [address] DRVVT Lupus 29.9 Normal 0.0-47.0 [facility] Comment on above: Performed By: #### M G, ESR, CMP, HS TROP, PTT, TSH3, T4F, ETOH, PT #### [facility] [address] Interpretation Comment: Normal . [facility] Comment on above: Result Comment: No l upus anticoagulant was detected. Performed at: [address] [id number] Technical Producer: Anne Oro MD, Phone: [phone] PERFORMED BY: [place] [address] PATHOLOGIST DEBRIDGING MACHINE OPERATOR CARLOS KNAPP M.D. Performed By: #### M G, ESR, CMP, HS TROP, PTT, TSH3, T4F, ETOH, PT #### [address] PTT-LA 26.0 Normal 0.0-43.5 [facility] Comment on above: Performed By: #### M G, ESR, CMP, HS TROP, PTT, TSH3, T4F, ETOH, PT #### [address] Thrombin Time 17.0 Normal 0.0-23.0 [facility] Comment on above: Performed By: #### M G, ESR, CMP, HS TROP, PTT, TSH3, T4F, ETOH, PT #### [address] Lupus anticoagulant [Interpr etation] in Platelet poor plasmaOrdered By: Jacob Baker on 12-12-2024 Lupus anticoagulant (PPP) [Interp] Lupus anticoagulant [Interpretation] in Platelet poor plasma . [facility] Comment on above: No lupus anticoagula nt was detected.Performed at: - [facility] [id number] Director: Anne Oro MD, Phone: [phone] Lymphocytes Auto (Bld) [#/Vo l]Ordered By: Jacob Baker on 12-12-2024 Lymphocytes (Bld) [#/Vol] Lymphocytes [#/volume] in Blood by Automated count 1.00-4.8 [facility] Lymphocytes/100 WBC Auto (Bl d)Ordered By: Jacob Baker on 12-12-2024 Lymphocytes/100 WBC (Bld) Lymphocytes/100 leukocytes in Blood by Automated count . [facility] MCH Auto (RBC) [Entitic mass ]Ordered By: Jacob Baker on 12-12-2024 MCH (RBC) [Entitic mass] MCH [Entitic mass] by Automated count 24.7-34.3 [facility] MCHC Auto (RBC) [Mass/Vol]Or dered By: Jacob Baker on 12-12-2024 MCHC (RBC) [Mass/Vol] MCHC [Mass/volume] by Automated count 32.0-35.0 [facility] MCV Auto (RBC) [Entitic vol] Ordered By: Jacob Baker on 12-12-2024 MCV (RBC) [Entitic vol] MCV [Entitic volume] by Automated count 80-100 [facility] Monocytes Auto (Bld) [#/Vol] Ordered By: Jacob Baker on 12-12-2024 Monocytes (Bld) [#/Vol] Automated blood monocyte count 0.0-0.8 [facility] Monocytes/100 WBC Auto (Bld) Ordered By: Jacob Baker on 12-12-2024 Monocytes/100 WBC (Bld) Automated monocyte % . [facility] Mucus [Presence] in Urine by AutomatedOrdered By: Jacob Baker on 12-12-2024 Mucus Auto Ql (U) Mucus [Presence] in Urine by Automated [facility] Myoglobinon 12-12-2024 Myoglobin [Mass/Vol] ng/mL Low 25-58 [facility] Comment on above: Result Comment: Perf ormed at: CB - [facility] [address] [id number] Technical Producer: Santy Storey PhD, Phone: [phone] Performed By: #### M G, ESR, CMP, HS TROP, PTT, TSH3, T4F, ETOH, PT #### [facility] [address] Neutrophils Auto (Bld) [#/Vo l]Ordered By: Jacob Baker on 12-12-2024 Neutrophils (Bld) [#/Vol] Neutrophils [#/volume] in Blood by Automated count 1.8-7.7 [facility] Neutrophils/100 WBC Auto (Bl d)Ordered By: Jacob Baker on 12-12-2024 Neutrophils/100 WBC (Bld) Automated neutrophil % . [facility] Nitrite Test strip Ql (U)Ord ered By: Jacob Baker on 12-12-2024 Nitrite Ql (U) Nitrite [Presence] i n Urine by Test strip Negative [facility] No Panel InformationOrdered By: Jacob Baker on 12-12-2024 Estimated GFR (CKD-EPI) > 60.0 mL/Min [facility] Pharmacy Creatinine Clearance (Chem N/A [facility] Protein Electrophoresis M-Vincent Not observed g/dL Not Observed [facility] Protein Electrophoresis Note Comment . [facility] Comment on above: Protein electrophore sis scan will follow via computer,mail, or laboratory technologist delivery.Performed at: [place] [id number] Director: Santy Storey PhD, Phone: [phone] Urine Random Prot Electrophor Note Comment . [facility] Comment on above: Protein electrophore sis scan will follow via computer,mail, or laboratory technologist delivery. Nucleated erythrocytes [Pres ence] in Blood by Automated countOrdered By: Jacob Baker on 12-12-2024 Nucleated RBC Auto Ql (Bld) Nucleated erythrocytes [Presence] in Blood by Automated count 0-0.5 [facility] Plasma thrombin timeOrdered By: Jacob Baker on 12-12-2024 Thrombin time Coag (PPP) [Time] TT plas 0.0-23.0 [facility] Platelet mean volume Auto (B ld) [Entitic vol]Ordered By: Jacob Baker on 12-12-2024 Platelet mean volume (Bld) [Entitic vol] Platelet mean volume [Entitic volume] in Blood by Automated count 6.3-10.7 [facility] Platelet poor plasma ratio o f lupus anticoagulant-sensitive activated partial thromboOrdered By: Jacob Baker on 12-12-2024 aPTT.lupus sensitive.excess phospholipid actual/normal Coag (PPP) [Relative time] Platelet poor plasma ratio of lupus anticoagulant-sensitive activated partial thrombo 0.0-47.6 [facility] Platelets Auto (Bld) [#/Vol] Ordered By: Jacob Baker on 12-12-2024 Platelets (Bld) [#/Vol] Platelets [#/volume] in Blood by Automated count 150-450 [facility] Potassium [Moles/volume] in Serum or PlasmaOrdered By: Jacob Baker on 12-12-2024 Potassium [Moles/Vol] Potassium [Moles/volume] in Serum or Plasma 3.5-5.1 [facility] Protein Electro, Random Urin trent 12-12-2024 Albumin, Urine 21.6 % Normal . [facility] Comment on above: Performed By: #### M G, ESR, CMP, HS TROP, PTT, TSH3, T4F, ETOH, PT #### [facility] [address] Dbkez-9-Addumkdx, Urine 7.6 % Normal . [facility] Comment on above: Performed By: #### M G, ESR, CMP, HS TROP, PTT, TSH3, T4F, ETOH, PT #### [facility] [address] [place] [address] [place] Gvnjv-7-Qocgwctv, Urine 12.8 % Normal . [facility] Comment on above: Performed By: #### M G, ESR, CMP, HS TROP, PTT, TSH3, T4F, ETOH, PT #### [facility] [address] [place] [address] [place] Beta Globulin, Urine 40.6 % Normal . [facility] Comment on above: Performed By: #### M G, ESR, CMP, HS TROP, PTT, TSH3, T4F, ETOH, PT #### [facility] [address] [place] [id number] [place] Gamma Globulin, Urine 17.5 % Normal . [facility] Comment on above: Performed By: #### M G, ESR, CMP, HS TROP, PTT, TSH3, T4F, ETOH, PT #### [facility] [address] [place] [address] [place] M-Vincent % Not Observed Normal Not Observed [facility] Comment on above: Performed By: #### M G, ESR, CMP, HS TROP, PTT, TSH3, T4F, ETOH, PT #### [facility] [address] Please Note: Comment Normal . [facility] Comment on above: Result Comment: Prot ein electrophoresis scan will follow via computer, mail, or laboratory technologist delivery. PERFORMED BY: [place] [address] PATHOLOGIST DEBRIDGING MACHINE OPERATOR CARLOS KNAPP M.D. Performed By: #### M G, ESR, CMP, HS TROP, PTT, TSH3, T4F, ETOH, PT #### [address] Protein (U) [Mass/Vol] mg/dL Normal Not Estab. [facility] Comment on above: Result Comment: Ve rified by repeat analysis Performed By: #### M G, ESR, CMP, HS TROP, PTT, TSH3, T4F, ETOH, PT #### [address] Protein Electrophoresis, Ser umon 12-12-2024 Albumin [Mass/Vol] 4.1 g/dL Normal 2.9-4.4 [facility] Comment on above: Performed By: #### M G, ESR, CMP, HS TROP, PTT, TSH3, T4F, ETOH, PT #### [address] Albumin/Globulin [Mass ratio] 1.2 {ratio} Normal 0.7-1.7 [facility] Comment on above: Performed By: #### M G, ESR, CMP, HS TROP, PTT, TSH3, T4F, ETOH, PT #### [address] Oheox-2-Oogqmprp 0.3 g/dL Normal 0.0-0.4 [facility] Comment on above: Performed By: #### M G, ESR, CMP, HS TROP, PTT, TSH3, T4F, ETOH, PT #### [address] Ozggw-6-Palbpqyk 0.9 g/dL Normal 0.4-1.0 [facility] Comment on above: Performed By: #### M G, ESR, CMP, HS TROP, PTT, TSH3, T4F, ETOH, PT #### [address] Beta Globulin 1.2 g/dL Normal 0.7-1.3 [facility] Comment on above: Performed By: #### M G, ESR, CMP, HS TROP, PTT, TSH3, T4F, ETOH, PT #### [address] Gamma Globulin 1.0 g/dL Normal 0.4-1.8 [facility] Comment on above: Performed By: #### M G, ESR, CMP, HS TROP, PTT, TSH3, T4F, ETOH, PT #### [address] Globulin (S) [Mass/Vol] 3.4 g/dL Normal 2.2-3.9 [facility] Comment on above: Performed By: #### M G, ESR, CMP, HS TROP, PTT, TSH3, T4F, ETOH, PT #### [address] M-Vincent Not Observed Normal Not Observed [facility] Comment on above: Performed By: #### M G, ESR, CMP, HS TROP, PTT, TSH3, T4F, ETOH, PT #### [address] SPE-Note Comment Normal . [facility] Comment on above: Result Comment: Prot ein electrophoresis scan will follow via computer, mail, or laboratory technologist delivery. Performed at: [address] [id number] Technical Producer: Santy Storey PhD, Phone: [phone] Performed By: #### M G, ESR, CMP, HS TROP, PTT, TSH3, T4F, ETOH, PT #### [address] Protein Test strip (U) [Mass /Vol]Ordered By: Jacob Baker on 12-12-2024 Protein (U) [Mass/Vol] Protein [Mass/vol ume] in Urine by Test strip Negative [facility] Protein [Mass/volume] in Ser um or PlasmaOrdered By: Jacob Baker on 12-12-2024 Protein [Mass/Vol] Protein [Mass/volume ] in Serum or Plasma 6.0-8.5 [facility] Prothrombin time (PT)Ordered By: Jacob Baker on 12-12-2024 PT Coag (PPP) [Time] Prothrombin time (PT) 9.0- 12.9 [facility] Comment on above: A hematocrit value g reater than 55% may lead to inaccurate results in coagulation testing. Patients having hematocrit values >55% require a special collection tube for coagulation studies. Please contact the laboratory at [phone] for redraw instructions. RBC Auto (Bld) [#/Vol]Ordere d By: Jacob Baker on 12-12-2024 RBC (Bld) [#/Vol] Erythrocytes [#/volu me] in Blood by Automated count 3.60-5.00 [facility] RPR w/rfx to Quant TP Abson 12-12-2024 RPR, Rfx Quant RPR Non-Reactive Normal Non Reactive [facility] Comment on above: Result Comment: Perf ormed at: [facility] [id number] Technical Producer: Santy Storey PhD, Phone: [phone] PERFORMED BY: [place] [address] PATHOLOGIST DEBRIDGING MACHINE OPERATOR CARLOS KNAPP M.D. Performed By: #### M G, ESR, CMP, HS TROP, PTT, TSH3, T4F, ETOH, PT #### [address] Rheumatoid Factoron 12-13-19 25 Rheumatoid Factor <10.0 Normal <14.0 [facility] Comment on above: Result Comment: Perf ormed at: [facility] [id number] Technical Producer: Santy Storey PhD, Phone: [phone] Performed By: #### A DNA, SJOGRENS, HELM, C3, HISAB, CCP, CHROMATIN, CENTROME, RA, CYNDI, [id number], JO1, B2 GLYPROT, ANTIR, CARDIO GMA, C4, CH50 ####[facility] , Ribonucleoprotein antibody a ssayOrdered By: Jacob Baker on 12-12-2024 ENVIRONMENTAL GEOLOGIST Antibody <0.2 AI 0.0-0.9 [facility] Scl-70 antibody assayOrdered By: Jacob Baker on 12-12-2024 Scl-70 (Scleroderma) Antibody <0.2 AI 0.0-0.9 [facility] Scleroderma 70 Antibodieson 12-12-2024 Scleroderma 70 Antibodies <0.2 Normal 0.0-0.9 [facility] Comment on above: Performed By: #### A DNA, SJOGRENS, HELM, C3, HISAB, CCP, CHROMATIN, CENTROME, RA, CYNDI, [id number], JO1, B2 GLYPROT, ANTIR, CARDIO GMA, C4, CH50 ####[facility] , Screening dilute Kuldip's v iper venom time (DRVVT) with reflex to confirmatory testOrdered By: Jacob Baker on 12-12-2024 dRVVT Coag (PPP) [Time] Screening dilute Kuldip's viper venom time (DRVVT) with reflex to confirmatory test 0.0-47.0 [facility] Screening lupus anticoagulan t-sensitive activated partial thromboplastin time (aPTT)Ordered By: Jacob Baker on 12-12-2024 aPTT.lupus sensitive Coag (PPP) [Time] Screening lupus anticoagulant-sensitive activated partial thromboplastin time (aPTT) 0.0-43.5 [facility] Serum Es-1 extractable nucle ar antibody assay (units/volume)Ordered By: Jacob Baker on 12-12-2024 Es-1 extractable nuclear Ab Qn (S) Serum Es-1 extractable nuclear antibody assay (units/volume) 0.0-0.9 [facility] Serum RPR testOrdered By: Stephany Baker on 12-12-2024 Reagin Ab RPR Ql (S) Reagin Ab [Presence ] in Serum by RPR Non Reactive [facility] Comment on above: Performed at: CB - [place] [id number] [place], [place] [id number] Director: Santy Storey PhD, Phone: [phone] Serum Sjogrens syndrome-A ex tractable nuclear antibody assay (units/volume)Ordered By: Jacob Baker on 12-12-2024 Sjogrens syndrome-A extractable nuclear Ab Qn (S) Serum Sjogrens syndrome-A extractable nuclear antibody assay (units/volume) 0.0-0.9 [facility] Serum Sjogrens syndrome-B ex tractable nuclear antibody assay (units/volume)Ordered By: Jacob Baker on 12-12-2024 Sjogrens syndrome-B extractable nuclear Ab Qn (S) Serum Sjogrens syndrome-B extractable nuclear antibody assay (units/volume) 0.0-0.9 [facility] Serum Helm extractable nucl ear antigen (HERIBERTO) antibody assay (units/volume)Ordered By: Jacob Baker on 12-12-2024 Helm extractable nuclear Ab Qn (S) Serum Helm extractable nuclear antigen (HERIBERTO) antibody assay (units/volume) 0.0-0.9 [facility] Serum aldolase measurementOr dered By: Jacob Baker on 12-12-2024 Aldolase 4.2 U/L Normal 3.3-10.3 [facility] Comment on above: Performed at: [place] [id number] Director: Santy Storey PhD, Phone: [phone] Result Comment: Perf ormed at: [facility] [place] [address] Technical Producer: Santy Storey PhD, Phone: [phone] PERFORMED BY: [place] [address] PATHOLOGIST DEBRIDGING MACHINE OPERATOR CARLOS KNAPP M.D. Performed By: #### M G, ESR, CMP, HS TROP, PTT, TSH3, T4F, ETOH, PT #### [address] Serum beta 2 glycoprotein 1 IgM antibody assay (units/volume)Ordered By: Jacob Baker on 12-12-2024 Beta 2 glycoprotein 1 IgM Qn (S) Beta 2 glycoprotein 1 IgM Ab [Units/volume] in Serum 0-32 [facility] Comment on above: Result Units: GPI Ig M unitsThe reference interval reflects a 3SD or 99th percentileinterval, which is thought to represent a potentiallyclinically significant result in accordance with theHonorhealth John C. Lincoln Medical Centernational Consensus Statement on the classificationcriteria for definitive antiphospholipid syndrome (APS). JThromb Haem 2006;4:295-306.Performed at: [facility] [address] [id number] Director: Santy Storey PhD, Phone: [phone] Serum cardiolipin IgA antibo dy assay by immunoassay (units/volume)Ordered By: Jacob Baker on 12-12-2024 Cardiolipin IgA IA Qn (S) Cardiolipin IgA Ab [Units/volume] in Serum by Immunoassay 0-11 [facility] Comment on above: Negative: <12 Indete rminate: 12 - 20 Low-Med Positive: >20 - 80 High Positive: >80 Serum cardiolipin IgG antibo dy assay by immunoassay (units/volume)Ordered By: Jacob Baker on 12-12-2024 Cardiolipin IgG IA Qn (S) Cardiolipin IgG Ab [Units/volume] in Serum by Immunoassay 0-14 [facility] Comment on above: Negative: <15 Indete rminate: 15 - 20 Low-Med Positive: >20 - 80 High Positive: >80 Serum cardiolipin IgM antibo dy assay by immunoassay (units/volume)Ordered By: Jacob Baker on 12-12-2024 Cardiolipin IgM IA Qn (S) Cardiolipin IgM Ab [Units/volume] in Serum by Immunoassay 0-12 [facility] Comment on above: Negative: <13 Indete rminate: 13 - 20 Low-Med Positive: >20 - 80 High Positive: >80 Serum centromere protein B a ntibody assay (units/volume)Ordered By: Jacob Baker on 12-12-2024 Centromere protein B Ab Qn (S) Serum centromere protein B antibody assay (units/volume) 0.0-0.9 [facility] Comment on above: Performed at: [facility] [address] [id number] Director: Santy Storey PhD, Phone: [phone] Serum globulin measurement ( mass/volume)Ordered By: Jacob Baker on 12-12-2024 Globulin (S) [Mass/Vol] Serum globulin measurement (mass/volume) 2.2-3.9 [facility] Serum histone IgG antibody a ssay by immunoassay (units/volume)Ordered By: Jacob Baker on 12-12-2024 Histone IgG IA Qn (S) Serum histone IgG antibody assay by immunoassay (units/volume) High 0.0-0.9 [facility] Comment on above: Negative <1.0 Weak P ositive 1.0 - 1.5 Moderate Positive 1.6 - 2.5 Strong Positive >2.5Performed at: - [facility] [id number] Director: Anne Oro MD, Phone: [phone] Serum immunofixation electro phoresisOrdered By: Jacob Baker on 12-12-2024 Serum Immunofixation Comment . [facility] Comment on above: No monoclonality det ected. Serum nuclear antibody titer Ordered By: Jacob Baker on 12-12-2024 Nuclear Ab (S) [Titer] Serum nuclear ant ibody titer . [facility] Comment on above: Negative <1:80 Borde rline 1:80 Positive >1:80ICAP nomenclature: AC-0For more information about Hep-2 cell patterns useANApatterns.org, the official website for theInternational Consensus on Antinuclear Antibody (CYNDI)Patterns (ICAP).Performed at: [email or web address] [address] [id number] Director: Santy Storey PhD, Phone: [phone] Serum or plasma IgA measurem ent (mass/volume)Ordered By: Jacob Baker on 12-12-2024 IgA [Mass/Vol] IgA [Mass/volume] in Serum or Plasma 87-352 [facility] Serum or plasma IgG measurem ent (mass/volume)Ordered By: Jacob Baker on 12-12-2024 IgG [Mass/Vol] IgG [Mass/volume] in Serum or Plasma [id number] [facility] Serum or plasma IgM measurem ent (mass/volume)Ordered By: Jacob Baker on 12-12-2024 IgM [Mass/Vol] IgM [Mass/volume] in Serum or Plasma 26-217 [facility] Comment on above: Performed at: - L [facility] [id number] Director: Santy Storey PhD, Phone: [phone] Serum or plasma albumin audie urement (mass/volume)Ordered By: Jacob Baker on 12-12-2024 Albumin [Mass/Vol] Albumin [Mass/volume ] in Serum or Plasma 2.9-4.4 [facility] Serum or plasma albumin/glob ulin mass ratioOrdered By: Jacob Baker on 12-12-2024 Albumin/Globulin [Mass ratio] Serum or plasma albumin/globulin mass ratio 0.7-1.7 [facility] Serum or plasma alpha 1 glob ulin measurement by electrophoresis (mass/volume)Ordered By: Jacob Baker on 12-12-2024 Alpha 1 globulin Elph [Mass/Vol] Serum or plasma alpha 1 globulin measurement by electrophoresis (mass/volume) 0.0-0.4 [facility] Serum or plasma alpha 2 glob ulin measurement by electrophoresis (mass/volume)Ordered By: Jacob Baker on 12-12-2024 Alpha 2 globulin Elph [Mass/Vol] Serum or plasma alpha 2 globulin measurement by electrophoresis (mass/volume) 0.4-1.0 [facility] Serum or plasma anion gap de terminationOrdered By: Jacob Baker on 12-12-2024 Anion gap [Moles/Vol] Serum or plasma an ion gap determination 6.0-15.0 [facility] Serum or plasma beta globuli n measurement by electrophoresis (mass/volume)Ordered By: Jacob Baker on 12-12-2024 Beta globulin Elph [Mass/Vol] Serum or plasma beta globulin measurement by electrophoresis (mass/volume) 0.7-1.3 [facility] Serum or plasma chromatin an tibody assay (units/volume)Ordered By: Jacob Baker on 12-12-2024 Chromatin Ab Qn Serum or plasma chromatin antibody assay (units/volume) 0.0-0.9 [facility] Serum or plasma complement C 3 measurement (mass/volume)Ordered By: Jacob Baker on 12-12-2024 Complement C3 [Mass/Vol] Serum or plasma complement C3 measurement (mass/volume) 82-167 [facility] Serum or plasma complement C 4 measurement (mass/volume)Ordered By: Jacob Baker on 12-12-2024 Complement C4 [Mass/Vol] Serum or plasma complement C4 measurement (mass/volume) 12-38 [facility] Serum or plasma cyclic adeno sine monophosphate measurement (moles/volume)Ordered By: Jacob Baker on 12-12-2024 Adenosine monophosphate.cyclic [Moles/Vol] Serum or plasma cyclic adenosine monophosphate measurement (moles/volume) 0-19 [facility] Comment on above: Negative <20 Weak po sitive 20 - 39 Moderate positive 40 - 59 Strong positive >59Performed at: [facility] [address] [place] [id number] Director: Santy Storey PhD, Phone: [phone] Serum or plasma gamma globul in measurement by electrophoresis (mass/volume)Ordered By: Jacob Baker on 12-12-2024 Gamma globulin Elph [Mass/Vol] Serum or plasma gamma globulin measurement by electrophoresis (mass/volume) 0.4-1.8 [facility] Serum or plasma myoglobin me asurement (mass/volume)Ordered By: Jacob Baker on 12-12-2024 Myoglobin [Mass/Vol] Serum or plasma myoglobin measurement (mass/volume) Low 25-58 [facility] Comment on above: Performed at: [place], [place] [id number] Director: Santy Storey PhD, Phone: [phone] Serum or plasma rheumatoid f actor measurement (units/volume)Ordered By: Jacob Baker on 12-12-2024 Rheumatoid factor Qn Serum or plasma rheumatoid factor measurement (units/volume) <14.0 [facility] Comment on above: Performed at: [place], [place] [id number] Director: Santy Storey PhD, Phone: [phone] Sjogrens Anti-SSA/SSBon 11-14 SS-A/Ro Sjogrens Antibody <0.2 Normal 0.0-0.9 [facility] Comment on above: Performed By: #### A DNA, SJOGRENS, HELM, C3, HISAB, CCP, CHROMATIN, CENTROME, RA, CYNDI, [id number], JO1, B2 GLYPROT, ANTIR, CARDIO GMA, C4, CH50 ####[facility] , SS-B/La Sjogrens Antibody <0.2 Normal 0.0-0.9 [facility] Comment on above: Performed By: #### A DNA, SJOGRENS, HELM, C3, HISAB, CCP, CHROMATIN, CENTROME, RA, CYNDI, [id number], JO1, B2 GLYPROT, ANTIR, CARDIO GMA, C4, CH50 ####[facility] , Sodium [Moles/volume] in Ser um or PlasmaOrdered By: Jacob Baker on 12-12-2024 Sodium [Moles/Vol] Sodium [Moles/volume ] in Serum or Plasma 136-145 [facility] Specific gravity Test strip (U) [Rel density]Ordered By: Jacob Baker on 12-12-2024 Specific gravity (U) [Rel density] Specific gravity of Urine by Test strip 1.001-1.030 [facility] Thyroid Stimulating Hormoneo n 12-12-2024 TSH Qn 0.91 m[IU]/L Normal 0.45-5.33 [facility] Comment on above: Result Comment: PERF ORMED BY: [place] [address] PATHOLOGIST DEBRIDGING MACHINE OPERATOR CARLOS KNAPP M.D. Performed By: #### M G, ESR, CMP, HS TROP, PTT, TSH3, T4F, ETOH, PT #### [address] [address] Thyrotropin [Units/volume] i n Serum or PlasmaOrdered By: Jacob Baker on 12-12-2024 TSH Qn Thyrotropin [Units/volume] in Serum or Plasma 0.45-5.33 [facility] Thyroxine (T4) free [Mass/vo lume] in Serum or PlasmaOrdered By: Jacob Baker on 12-12-2024 Free T4 [Mass/Vol] Thyroxine (T4) free [Mass/volume] in Serum or Plasma 0.61-1.12 [facility] Total hemolytic complement C H50 assayOrdered By: Jacob Baker on 12-12-2024 Total Complement (CH50) >60 U/mL >41 [facility] Comment on above: Age Male Female [...] to determine out of range values.Performed at: [employer] [id number] Director: Santy Storey PhD, Phone: [phone] Urea nitrogen [Mass/volume] in Serum or PlasmaOrdered By: Jacob Baker on 12-12-2024 Urea nitrogen [Mass/Vol] Urea nitrogen [Mass/volume] in Serum or Plasma 04-07 [facility] Urine alpha 1 globulin/total protein by electrophoresisOrdered By: Jacob Baker on 12-12-2024 Alpha 1 globulin Elph (U) [Mass fraction] Urine alpha 1 globulin/total protein by electrophoresis . [facility] Urine alpha 2 globulin/total protein ratio by electrophoresisOrdered By: Jacob Baker on 12-12-2024 Alpha 2 globulin Elph (U) [Mass fraction] Urine alpha 2 globulin/total protein ratio by electrophoresis . [facility] Urine beta globulin measurem ent by electrophoresis (mass/volume)Ordered By: Jacob Baker on 12-12-2024 Beta globulin Elph (U) [Mass/Vol] Urine beta globulin measurement by electrophoresis (mass/volume) . [facility] Urine protein measurement (m ass/volume)Ordered By: Jacob Baker on 12-12-2024 Protein (U) [Mass/Vol] Protein [Mass/vol ume] in Urine Not Estab. [facility] Comment on above: Verified by repeat analysis Urobilinogen Test strip (U) [Mass/Vol]Ordered By: Jacob Baker on 12-12-2024 Urobilinogen (U) [Mass/Vol] Urobilinogen [Mass/volume] in Urine by Test strip Normal [facility] WBC Auto (Bld) [#/Vol]Ordere d By: Jacob Baker on 12-12-2024 WBC (Bld) [#/Vol] Leukocytes [#/volume ] in Blood by Automated count 3.8-11.6 [facility] aPTT in Platelet poor plasma by Coagulation assayOrdered By: Jacob Baker on 12-12-2024 aPTT Coag (PPP) [Time] Activated partial thromboplastin time (aPTT) in platelet poor plasma by coagulation a 25.1-36.5 [facility] Comment on above: A hematocrit value g reater than 55% may lead to inaccurate results in coagulation testing. Patients having hematocrit values >55% require a special collection tube for coagulation studies. Please contact the laboratory at [phone] for redraw instructions. aPTT.lupus sensitive/aPTT.babs pus sensitive W excess phospholipid (screen to confirm raOrdered By: Jacob Baker on 12-12-2024 aPTT.lupus sensitive/aPTT.lupus sensitive W excess phospholipid Coag (PPP) [Ratio] aPTT.lupus sensitive/aPTT.lupus sensitive W excess phospholipid (screen to confirm ra 0.00-1.34 [facility] pH Test strip (U)Ordered By: Jacob Baker on 12-12-2024 pH (U) pH of Urine by Test strip 5.0-9.0 [facility] US Abdomen, Limitedon 2024 US Abdomen, [...] [place]and FINAL REPORT Dictated: 11/30/2024 12:17 pm SignJulio pelayo MD Signed (Electronic Signature): 11/30/2024 12:17 pm Signed by: Julio Snyder MD Transcribed by: MARCO Technologist: KELLY [facility] Main OR Intraoperative Recor don 11-28-2024 Main OR Intraoperative Record Main OR Intraoperative Record IntraOp Document Type FTPM Summary Primary Physician: Babar Mayers DO Finalized Date/Time: 11/28/24 10:21:25 Pt. Name: SHAZIA CHOU/Sex: 1990 Female Med Rec #: [id number] Physician: Babar Mayers DO Financial #: [id number] Pt. Type: P Room/Bed: / Admit/Disch: 11/28/24 08:59:53 - Institution: Case Times FTPM Entry 1 Patient Times In Room 11/28/24 10:16:00 Out Room 11/28/24 10:22:00 Procedure Times Start 11/28/24 10:19:00 Stop 11/28/24 10:21:00 Anesthesia Times Last Modified By: Lulu Burrows RN 11/28/24 10:21:12 Case Attendance FTPM Entry 1 Entry 2 Entry 3 Case Attendee Babar Mayers DO, RN, Lulu Rodas RN, [place] Fallon Role Performed Surgeon - Primary Aircraft Delivery Checker - Primary Scrub - Primary Time In 11/28/24 10:16:00 11/28/24 10:16:00 11/28/24 10:16:00 Time Out 11/28/24 10:22:00 11/28/24 10:22:00 11/28/24 10:22:00 Procedure TRANSFORAMINAL EPIDURAL TRANSFORAMINAL EPIDURAL TRANSFORAMINAL EPIDURAL STEROID INJECTIO(Left) STEROID INJECTIO(Left) STEROID INJECTIO(Left) Comments Last Modified By: Lulu Burrows RN, RN, Lulu Mercer RN 11/28/24 10:21:12 11/28/24 10:21:12 11/28/24 10:21:12 Entry 4 Case Attendee Sofy Mix Role Performed Channel Marketing Program Manager Time In 11/28/24 10:16:00 Time Out 11/28/24 [...] No Time Out Lulu Burrows RN, Given Destin Rodas RN, Talib De La Garza DO, Bradford A., Daniel, Alissa M Time Out Complete 11/28/24 10:16:00 Outcomes Met? [...] and tissue Entry 1 Skin Integrity Intact, [place], Warm, & Skin Abnormality No Dry Outcomes [...] Large Under (more content not included)... [facility] Main OR Preoperative Recordo n 11-28-2024 Main OR Preoperative Record Main OR Preoperative Record Holding Area Document Type FT Summary Primary Physician: Babar Mayers DO Finalized Date/Time: 11/28/24 09:16:26 Pt. Name: SHAZIA CHOU /Sex: 1990 Female Med Rec #: [id number] Physician: Babar Mayers DO Financial #: [id number] Pt. Type: P Room/Bed: / Admit/Disch: 11/28/24 [...] 09:04 Gabrielle Sultana RN 11/28/24 09:[address] [facility] MRI Spine Lumbar w/o Contras ton 11-12-2024 [...] You MD Transcribed by: MARCO Technologist: MANDI [facility] Nonvisit Note - PTon -27-2 025 Nonvisit Note - PT Nonvisit Note - PT -per and her insurance will not cover. [facility] Nonvisit Note - PTon 025 Nonvisit Note - PT Nonvisit Note - PT Shazia called to cancel her remaining appointments. She said per request of her doctor and insurance will not cover it [facility] Nonvisit Note - PTon 025 Nonvisit Note - PT Nonvisit Note - PT - pt is having issues with her insurance and wants to figure it out first [facility] XR Spine Lumbosacral Minimum 4 Viewson 11-03-2024 [...] Pena Transcribed by: MARCO Technologist: CHANCE [facility] XR Femur Min 2 Views Lefton 11-02-2024 XR Femur Min 2 Views Left Exam Date/Time: 11/02/2024 07:56 EST Reason for Exam: M54.42 Report IMPRESSION: NEGATIVE LEFT FEMUR. CLINICAL HISTORY: M54.42 COMPARISON: None available. FINDINGS: AP and lateral views of the left femur demonstrate no evidence of a fracture or other bone abnormality. Ordering Provider: Jennie Durand FINAL REPORT Dictated: 11/02/2024 3:12 pm Signer Julio BHAKTA Signed (Electronic Signature): 11/02/2024 3:12 pm Signed by: SignJulio pelayo MD Transcribed by: MARCO Technologist: CHANCE [facility] Nonvisit Note - PTon 025 Nonvisit Note - PT Nonvisit Note - PT Chart reviewed with eval prepped for scheduled eval. KK [facility] ED Clinical Summaryon 2024 ED Clinical Summary ED Clinical Summary [place] [id number] ED Clinical Summary Person Information Name: SHAZIA CHOU [facility] Age: 33 Years : 1990 Sex: Female Language: Indonesian PCP: KURT BALBUENA CNP Marital Status: MRN: Visit Id: Visit Reason: Leg pain-swelling; Back [...] 10/18/2024 08:40:02 10/18/2024 08:40:02 10/18/2024 08:40:02 ADDRESS: [address] [place] [phone] PHYS DOC NOTES: MEDICAL INFORMATION: Prescriptions Given: New Medications [id number], [address], [place] [id number], [phone] methocarbamol (Robaxin-750 oral tablet) 2 Tablets By [...] Adult Follow up: With: Address: When: KURT BALBUENA [address] [place] [phone] Business (1) In 3 days 10/21/2024 DIAGNOSIS: Chronic pain [facility] ED Note-Physicianon 10-18-19 ED Note-Physician ED Note-Physician Basic Information Time Seen: Beto Shea PA-C 10/18/2024 08:20 Chief Complaint Pt reports lower back pain and left leg pain. Pt reports she has seen multiple doctors and no one can figure out what is oging on. Pain since . Has seen PCP, [place] [facility], Neuro. EMG and CTA of head/neck [...] day(s), # 18 tab(s), Refills(s) 0, Pharmacy: [facility] #[id number], 170, cm, 10/18/24 8:12:00 EST, Height/Length Dosing, 90, kg, 10/18/24 8:12:00 EST, Weight Dosing predniSONE, 60 mg = 3 tab(s), Oral, Daily, X 7 day(s), # 21 tab(s), Refills(s) 0, Pharmacy: [facility]/pharmacy #[id number], 170, cm, 10/18/24 8:12:00 EST, Height/Length [...] KURT BALBUENA In 3 days 10/21/2024 EST [address] [place] [phone] Business (1) Additional Instructions: Patient Education Chronic [...] made to ensure accuracy, however, inadvertently computerized receipt and report clerk mistakes may be present. Appropriate healthcare PPE [...] Procedure/Surgical H (more content not included)... [facility] Comment on above: Result Comment: Elec tronically Signed By: Beto Shea PA-C\.br\Date and Time Signed: 10/18/24 09:04 EST\.br\Electronically Co-Signed By: Jose Correia M.D.\.br\Date and Time Co-Signed: 10/18/24 09:07 EST ED Patient Summaryon 025 ED Patient Summary ED Patient Summary [address] [address] Patient Discharge Instructions Person Information Name: SHAZIA CHOU Age: 33 Years Arrival Date: 10/18/2024 08:04:01 Discharge Diagnosis: Chronic pain Primary Care Physician: KURT BALBUENA CNP Provider Information Primary Provider: Jose Correia M.D. Advanced Recreation Leader:Beto Shea PA-C The exam and treatment you received in the Emergency Department were for an urgent problem and are not intended as complete care. It is important that you follow up with a doctor, nurse practitioner, or physician???s assistant dean for ongoing care. If your symptoms become worse or you do not improve as expected and you are unable to reach your usual health care provider, you should return to the Emergency Department. We are available 24 hours a day. SHAZIA CHOU has been given the following list of patient education materials, prescriptions and follow-up instructions: Follow-up Instructions: With: Address: When: KURT BALBUENA [address] [place] [phone] Business (1) In 3 days 10/21/2024 In the event that this physician does not participate in your insurance network, please consult with your insurance company to find a nearby participating provider. Patient Education Materials: Chronic Pain, Adult A MESSAGE TO ALL PATIENTS REGARDING OPIOIDS PRESCRIPTION OPIOIDS: WHAT YOU NEED TO KNOW Prescription opioids can be used to help relieve zepctfdq-dt-kastyj pain and are often prescribed following a [...] care professio (more content not included)... [facility] Ambulatory Visit Summaryon 0 10-14-2024 Ambulatory Visit [...] AM EST With: KURT BALBUENA CNP Where: [facility] [place] [phone]- Medications What How Much When Why Instructions [...] for choosing us for your care. [facility] Family Medicine Office/Clini c Noteon 10-14-2024 Family Medicine Office/Clinic Note Family Medicine Office/Clinic Note Chief Complaint Pain follow up HPI Staff Pt presents today for 2wk follow up to chronic pain. Treated w/gabapentin 100mg. Pt denies relief from pain with med. Brain MRI? Has not scheduled yet due to rescheduling on pt's end. Rheumatoid factor ordered last encounter. NEG (done @ [facility]) Referred to [facility]. Did see, but waiting for MRI brain results. PHQ9: 14 Does see psychiatrist. Concerned she may have Raynaud's. 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 History of Present Illness 33 year old [...] referral to rheumatology as the MD at [facility] suggested she may have Raynaud's phenomenon. Patient [...] TID, # 90 cap(s), Refills(s) 0, Pharmacy: [facility]/pharmacy #[id number], 170, cm, 10/14/24 9:02:00 EST, Height/Length Dosing, 90.2, kg, 10/14/24 9:02:00 EST, Weight Dosing 2. Raynaud phenomenon (I73.00: Raynaud's syndrome without gangrene) Ordered: [facility] External Ambulatory Referral 3. Alcohol abuse, uncomplicated [...] KURT BALBUENA CNP, FAM Within [address] [place] [phone] [facility] (1) Additional Instructions: Chronic pain syndrome Patient Education Binge-Drinking Information, Adult Problem List/Past Medical History Ongoing Alcohol abuse, uncomplicated Bipolar disorder BMI 31.0-31.9,adult Borderline personality disorder Chronic pain syndrome History of bypass of stomach Hypertension Iron deficiency anemia Left breast mass Muscle weakness-general Obesity (BMI 30-39.9) Overweight (BMI 25.0 (more content not included)... [facility] Comment on above: Result Comment: Elec tronically Signed By: KURT BALBUENA CNP\.br\Date and Time Signed: 01/31/25 09:39 EST Pre-Visit Planningon 025 Pre-Visit Planning Pre-Visit Planning From: Lina Chirinos To: ESHA IRENEKURT; Sent: 10/13/2024 14:16:22 EST Subject: Pre-Visit Planning Due Date/Time: 10/13/2024 14:16:00 EST Caller Name: SHAZIA CHOU; Caller Number: Jonathan , Su Antonio Lanier. During a pre-visit planning chart review, I noted the following documentation in the medical record: Current Problem List: Alcohol abuse, uncomplicated. 11/03/2022 Office Visit Note: HPI- Pt reports her sobriety is under control. 50 days sober. Currently not drinking. Pt reports she started drinking heavily about 16 mo ago when her mother . Pt is currently using Naltrexone. 06/09/2023 [facility] ED Note: HPI- The patient states that [...] drug abuse. This was an error. 09/16/2024 [facility] Records (page 11): Office Visit dated [...] feel free to contact me at extension [phone]. Lina Chirinos LPN Clinical Referral Coordinator [place] [address] Extension: [phone] [email or web address] From: KURT BALBUENA CNP To: Lina Chirinos; Sent: 10/14/2024 09:24:40 EST Subject: RE: Pre-Visit Planning Caller Name: SHAZIA CHOU; Caller Number: , Dx of alcohol abuse, uncomplicated added to the visit dx and chronic list- The following in in the patient's plan- Monitor for s/sx of alcohol dependence Recheck Vitamin B, folate, TIBC, Ferritin, Magnesium, phosphate, & zinc annually Encouraged to limit alcohol consumption to 4-6 ounces when she drinks Encouraged to continue with counseling f/u in 4-[address] [facility] Ambulatory Visit Summaryon 0 09-30-2024 Ambulatory Visit Summary Ambulatory Visit Summary SHAZIA CHOU :1990 Visit Date:09/30/2024 Ambulatory Visit Instructions Your [...] AM EST With: KURT BALBUENA CNP Where: [address] [address]- Medications What How Much When Why Instructions New gabapentin (gabapentin 100 mg Cap) 1 Capsules By Mouth 3 times a day Chronic pain syndrome Pickup at [facility]/pharmacy #[id number] Unchanged acetaminophen (Tylenol) 325 Milligram By [...] Once a day (at bedtime) Pharmacy Information [facility]/pharmacy #[id number]: [address], [place] [phone] Allergies Abilify (suicidal) BuSpar (palpitations) Coconut Oil [...] for choosing us for your care. Normal [facility] Family Medicine Office/Clini c Noteon 09-30-2024 Family Medicine Office/Clinic Note Family Medicine Office/Clinic Note [facility] Staff Shazia is a 33 year [...] her previous pcp in July, to the [facility] ED on 09/05/2024 and again on 09/11/2024. She was seen by a provider at [facility] on 09/05/2024 and additional laboratory testing [...] syndrome) Reviewed notes and laboratory results from [facility] Awaiting results from the Rheumatoid factor & [facility] Awaiting consult information form [facility] MRI scheduled for Thursday f/u in 2 weeks Ordered: gabapentin, 100 mg = 1 cap(s), Oral, TID, # 90 cap(s), Refills(s) 0, Pharmacy: [facility]/pharmacy #[id number], 170, cm, 09/30/24 9:53:00 EST, Height/Length Dosing, [...] Tab gabapen (more content not included)... Normal [facility] Comment on above: Result Comment: Elec tronically Signed By: KURT BALBUENA CNP\.br\Date and Time Signed: 09/30/24 10:29 EST Vit Aon 09-29-2024 Retinol [Mass/Vol] 68.4 microgram/dL High 18.9-57.3 [facility] Comment on above: Result Comment: Refe [...] the Food and Drug Administration. Performed at: Lab[address] [id number] MD Shorty Rodríguez Performed By: #### 1 [id number] ####[facility] [address] [place] [address] EMG 2 Extremitieson 09-27-19 Normal EMG of the le ft upper and lower extremity [facility] Family Medicine Office/Clini c Noteon 09-27-2024 Family [...] report [facility]. She is not sure [...] virus vaccine, inactivated 07/09/2020 Recorded Normal [facility] Comment on above: Result Comment: Elec tronically Signed By: UKRT BALBUENA CNP\.br\Date and Time Signed: 09/27/24 12:39 EST NVC 11-12 Nerveson Normal EMG of the le ft upper and lower extremity [facility] ALL MYOGLOBINon 09-21-2024 Myoglobin [Mass/Vol] 33 ng/mL 9 - 82 ng/mL NO [facility] ALL THYROID STIM HORMONEon 0 09-21-2024 TSH Qn 1.268 m[IU]/L [facility] No Panel Informationon 09-21 [facility] Ambulatory Visit Summaryon 0 09-20-2024 Ambulatory Visit [...] for choosing us for your care. Normal [facility] CHEMISTRYOrdered By: SYSTEM SYSTEM on 09-20-2024 25-hydroxyvitamin [...] for a full Vitamin panel. ER visit [facility] - malnutrition Gave magnesium pill 1 pill [...] the ED. She reports she went to [facility] and it was recommended that she be [...] Folate Level Iron Level Lab Specimen Collect 82[address] Magnesium Level TIBC Calculated Vitamin A Level [...] fasciotomy (06/02/ (more content not included)... Normal [facility] Comment on above: Result Comment: Elec tronically Signed By: ESHA BONILLA, KURT Lehman\.br\Date and Time Signed: 09/20/24 11:15 EST Ferritinon 09-20-2024 Ferritin [Mass/Vol] 10 ng/mL Low 11-307 [facility] Comment on above: Performed By: #### 2 [id number] #### [facility] [address] [place] [address] Folateon 09-20-2024 Folate [Mass/Vol] ng/mL Normal >=6.7 [facility] Comment on above: Performed By: #### 2 [id number] #### [facility] [address] [place] [address] Ironon 09-20-2024 Iron [Mass/Vol] 124 microgram/dL Normal 35-153 [facility] Comment on above: Performed By: #### 2 [id number] #### [facility] [address] [place] [address] Magnesiumon 09-20-2024 Magnesium [Mass/Vol] 2.2 mg/dL Normal 1.3-2.4 [facility] Comment on above: Performed By: #### 2 [id number] #### [facility] [address] [place] [address] TIBC Calculatedon 09-20-2024 Iron binding capacity [Mass/Vol] 455 microgram/dL High 250-400 [facility] Comment on above: Performed By: #### 1 [id number] #### [facility] [address] [place] [address] Transferrin [Mass/Vol] 325 mg/dL Normal 200-370 [facility] Comment on above: Performed By: #### 1 [id number] #### [facility] [address] [place] [address] Vit B12on 09-20-2024 Cobalamin (Vitamin B12) [Mass/Vol] 626 pg/mL Normal 50-1500 [facility] Comment on above: Performed By: #### 2 [id number] #### [facility] [address] [place] [address] Vitamin D 25 Hydroxyon 09-20 25-hydroxyvitamin D3 [Mass/Vol] 43.7 ng/mL Normal 30.0-100.0 [facility] Comment on above: Performed By: #### 5 [id number] #### [facility] [address] [place] [address] Alanine aminotransferase [En zymatic activity/volume] in Serum or PlasmaOrdered By: Sailaja Anderson on 09-15-2024 ALT [Catalytic activity/Vol] Alanine aminotransferase [Enzymatic activity/volume] in Serum or Plasma 7-52 [facility] Albumin [Mass/volume] in Ser um or Plasma by Bromocresol green (BCG) dye binding methoOrdered By: Sailaja Anderson on 09-15-2024 Albumin BCG dye [Mass/Vol] Albumin [Mass/volume] in Serum or Plasma by Bromocresol green (BCG) dye binding metho 3.5-5.7 [facility] Alkaline phosphatase [Enzyma tic activity/volume] in Serum or PlasmaOrdered By: Sailaja Anderson on 09-15-2024 ALP [Catalytic activity/Vol] Alkaline phosphatase [Enzymatic activity/volume] in Serum or Plasma 34-104 [facility] Amphetamine Screen Ql (U)Ord ered By: Sailaja Anderson on 09-15-2024 Amphetamines Ql (U) Amphetamines screen Negativ e [facility] Appearance of UrineOrdered B y: Sailaja Anderson on 09-15-2024 Appearance (U) Urine appearance Clear [facility] Aspartate aminotransferase [ Enzymatic activity/volume] in Serum or PlasmaOrdered By: Sailaja Anderson on 09-15-2024 AST [Catalytic activity/Vol] Aspartate aminotransferase [Enzymatic activity/volume] in Serum or Plasma 13-39 [facility] Bacteria [Presence] in Urine by AutomatedOrdered By: Sailaja Anderson on 09-15-2024 Bacteria Auto Ql (U) Bacteria [Presence] in Urine by Automated None Seen [facility] Barbiturates [Presence] in U rine by Screen methodOrdered By: Sailaja Anderson on 09-15-2024 Barbiturates Screen Ql (U) Barbiturates [Presence] in Urine by Screen method Negative [facility] Basophils Auto (Bld) [#/Vol] Ordered By: Sailaja Anderson on 09-15-2024 Basophils (Bld) [#/Vol] Automated basophil count 0.0-0.2 [facility] Basophils/100 WBC Auto (Bld) Ordered By: Sailaja Anderson on 09-15-2024 Basophils/100 WBC (Bld) Automated basophil % . [facility] Benzodiazepines Screen Ql (U )Ordered By: Sailaja Anderson on 09-15-2024 Benzodiazepines Ql (U) Benzodiazepines [Presence] in Urine by Screen method Negative [facility] Benzoylecgonine [Presence] i n Urine by Screen methodOrdered By: Sailaja Anderosn on 09-15-2024 Benzoylecgonine Screen Ql (U) Benzoylecgonine [Presence] in Urine by Screen method Negative [facility] Bilirubin Test strip Ql (U)O rdered By: Sailaja Anderson on 09-15-2024 Bilirubin Ql (U) Bilirubin.total [Presence] in Urine by Test strip Negative [facility] Bilirubin.total [Mass/volume ] in Serum or PlasmaOrdered By: Sailaja Anderson on 09-15-2024 Bilirubin [Mass/Vol] Bilirubin.total [Mass/volume] in Serum or Plasma 0.3-1.0 [facility] CT angio headon 09-15-2024 CT angio head [facility] [place] [address] [place] [address] CT Scan Report Signed Patient: Shazia Chou MR#: [id number] : 1990 Acct:[id number] Age/Sex: 33 / F ADM Date: 09/15/24 Loc: ER Room: Type: [facility] ER Attending Dr: Copies to: Sailaja Anderson APRN Ordering Provider: Sailaja Anderson APRN Date of Service: 09/15/24 CT/CT angio head: weakness ([id number]) CT/CT angio neck: weakness ([id number]) CT/CT head/brain wo con: weakness CT head/brain [...] Wiley Shetty M.D.09/15/2024 3:56 PM Dictation Location: [place] [address] Transcribed By: MARKY 09/15/24 1556 Dictated By: Wiley Shetty II, MD 09/15/24 1546 Signed By: 09/15/24 1556 Normal [facility] Calcium [Mass/volume] in Ser um or PlasmaOrdered By: Sailaja Anderson on 09-15-2024 Calcium [Mass/Vol] Calcium [Mass/volume ] in Serum or Plasma 8.6-10.3 [facility] Cannabinoids [Presence] in U rine by Screen methodOrdered By: Sailaja Anderson on 09-15-2024 Cannabinoids Screen Ql (U) Cannabinoids [Presence] in Urine by Screen method Negative [facility] Comment on above: These are unconfirme [...] l [Moles/volume] in Serum or Plasma 21.0-31.0 [facility] Chloride [Moles/volume] in S tushar or PlasmaOrdered By: Sailaja Anderson on 09-15-2024 Chloride [Moles/Vol] Chloride [Moles/vol ume] in Serum or Plasma 98-107 [facility] Color Auto (U)Ordered By: Scott Anderson on 09-15-2024 Color (U) Color of Urine by Auto Yellow [facility] Complete Blood Count Auto Di ffon 09-15-2024 Basophils (Bld) [#/Vol] 0.1 10*3/uL Normal 0.0-0.2 [facility] Comment on above: Result Comment: PERF ORMED BY: [place] [address] PATHOLOGIST DEBRIDGING MACHINE OPERATOR CARLOS KNAPP M.D. Performed By: #### M G, ESR, CMP, HS TROP, PTT, TSH3, T4F, ETOH, PT #### [address] Basophils/100 WBC (Bld) 0.7 % Normal . [facility] Comment on above: Performed By: #### M G, ESR, CMP, HS TROP, PTT, TSH3, T4F, ETOH, PT #### [address] Eosinophils (Bld) [#/Vol] 0.2 10*3/uL Normal 0.0-0.45 [facility] Comment on above: Performed By: #### M G, ESR, CMP, HS TROP, PTT, TSH3, T4F, ETOH, PT #### [address] Eosinophils/100 WBC (Bld) 2.4 % Normal . [facility] Comment on above: Performed By: #### M G, ESR, CMP, HS TROP, PTT, TSH3, T4F, ETOH, PT #### [address] Erythrocyte distribution width (RBC) [Ratio] 16.9 % High 11.9-15.3 [facility] Comment on above: Performed By: #### M G, ESR, CMP, HS TROP, PTT, TSH3, T4F, ETOH, PT #### [address] Hematocrit (Bld) [Volume fraction] 35.6 % Normal 34.0-46.4 [facility] Comment on above: Performed By: #### M G, ESR, CMP, HS TROP, PTT, TSH3, T4F, ETOH, PT #### [address] Hemoglobin (Bld) [Mass/Vol] 12.1 g/dL Normal 11.8-15.4 [facility] Comment on above: Performed By: #### M G, ESR, CMP, HS TROP, PTT, TSH3, T4F, ETOH, PT #### [address] Lymphocytes (Bld) [#/Vol] 2.3 10*3/uL Normal 1.00-4.8 [facility] Comment on above: Performed By: #### M G, ESR, CMP, HS TROP, PTT, TSH3, T4F, ETOH, PT #### [address] Lymphocytes/100 WBC (Bld) 26.3 % Normal . [facility] Comment on above: Performed By: #### M G, ESR, CMP, HS TROP, PTT, TSH3, T4F, ETOH, PT #### [address] MCH (RBC) [Entitic mass] 32.5 pg Normal 24.7-34.3 [facility] Comment on above: Performed By: #### M G, ESR, CMP, HS TROP, PTT, TSH3, T4F, ETOH, PT #### [address] MCV (RBC) [Entitic vol] 96.0 fL Normal 80-100 [facility] Comment on above: Performed By: #### M G, ESR, CMP, HS TROP, PTT, TSH3, T4F, ETOH, PT #### [address] Mean Corpuscular HGB Conc 33.9 g/dL Normal 32.0-35.0 [facility] Comment on above: Performed By: #### M G, ESR, CMP, HS TROP, PTT, TSH3, T4F, ETOH, PT #### [address] Monocytes (Bld) [#/Vol] 0.7 10*3/uL Normal 0.0-0.8 [facility] Comment on above: Performed By: #### M G, ESR, CMP, HS TROP, PTT, TSH3, T4F, ETOH, PT #### [address] Monocytes/100 WBC (Bld) 17.55 % Normal 0.00-20.00 [facility] Comment on above: Performed By: #### M G, ESR, CMP, HS TROP, PTT, TSH3, T4F, ETOH, PT #### [address] Monocytes/100 WBC (Bld) 7.8 % Normal . [facility] Comment on above: Performed By: #### M G, ESR, CMP, HS TROP, PTT, TSH3, T4F, ETOH, PT #### [place] [address] [place] Neutrophils (Bld) [#/Vol] 5.4 10*3/uL Normal 1.8-7.7 [facility] Comment on above: Performed By: #### M G, ESR, CMP, HS TROP, PTT, TSH3, T4F, ETOH, PT #### [place] [address] [place] Neutrophils/100 WBC (Bld) 62.8 % Normal . [facility] Comment on above: Performed By: #### M G, ESR, CMP, HS TROP, PTT, TSH3, T4F, ETOH, PT #### [place] [address] [place] NRBC% 0.1 /100{WBC} Normal 0-0.5 [facility] Comment on above: Performed By: #### M G, ESR, CMP, HS TROP, PTT, TSH3, T4F, ETOH, PT #### [address] Platelet mean volume (Bld) [Entitic vol] 9.2 fL Normal 6.3-10.7 [facility] Comment on above: Performed By: #### M G, ESR, CMP, HS TROP, PTT, TSH3, T4F, ETOH, PT #### [facility] [address] Platelets (Bld) [#/Vol] 292 10*3/uL Normal 150-450 [facility] Comment on above: Performed By: #### M G, ESR, CMP, HS TROP, PTT, TSH3, T4F, ETOH, PT #### [address] RBC (Bld) [#/Vol] 3.71 10*6/uL Normal 3.60-5.00 [facility] Comment on above: Performed By: #### M G, ESR, CMP, HS TROP, PTT, TSH3, T4F, ETOH, PT #### [address] WBC (Bld) [#/Vol] 8.6 10*3/uL Normal 3.8-11.6 [facility] Comment on above: Performed By: #### M G, ESR, CMP, HS TROP, PTT, TSH3, T4F, ETOH, PT #### [facility] [address] Comprehensive Metabolic Pane jak 09-15-2024 Albumin [Mass/Vol] 3.8 g/dL Normal 3.5-5.7 [facility] Comment on above: Performed By: #### M G, ESR, CMP, HS TROP, PTT, TSH3, T4F, ETOH, PT #### [address] Albumin/Globulin [Mass ratio] 1.5 {ratio} Normal [facility] Comment on above: Performed By: #### M G, ESR, CMP, HS TROP, PTT, TSH3, T4F, ETOH, PT #### [address] ALP [Catalytic activity/Vol] 53 U/L Normal 34-104 [facility] Comment on above: Performed By: #### M G, ESR, CMP, HS TROP, PTT, TSH3, T4F, ETOH, PT #### [address] ALT [Catalytic activity/Vol] 15 U/L Normal 7-52 [facility] Comment on above: Performed By: #### M G, ESR, CMP, HS TROP, PTT, TSH3, T4F, ETOH, PT #### [address] Anion gap [Moles/Vol] 8.3 mmol/L Normal 6.0-15.0 [facility] Comment on above: Performed By: #### M G, ESR, CMP, HS TROP, PTT, TSH3, T4F, ETOH, PT #### [address] AST [Catalytic activity/Vol] 16 U/L Normal 13-39 [facility] Comment on above: Performed By: #### M G, ESR, CMP, HS TROP, PTT, TSH3, T4F, ETOH, PT #### [address] Bilirubin [Mass/Vol] 0.3 mg/dL Normal 0.3-1.0 [facility] Comment on above: Performed By: #### M G, ESR, CMP, HS TROP, PTT, TSH3, T4F, ETOH, PT #### [address] Calcium [Mass/Vol] 9.0 mg/dL Normal 8.6-10.3 [facility] Comment on above: Performed By: #### M G, ESR, CMP, HS TROP, PTT, TSH3, T4F, ETOH, PT #### [address] [place] [address] [place] Chloride [Moles/Vol] 107 mmol/L Normal 98-107 [facility] Comment on above: Performed By: #### M G, ESR, CMP, HS TROP, PTT, TSH3, T4F, ETOH, PT #### [facility] [address] CO2 [Moles/Vol] 26.2 mmol/L Normal 21.0-31.0 [facility] Comment on above: Performed By: #### M G, ESR, CMP, HS TROP, PTT, TSH3, T4F, ETOH, PT #### [facility] [address] Creatinine [Mass/Vol] 0.57 mg/dL Low 0.60-1.20 [facility] Comment on above: Performed By: #### M G, ESR, CMP, HS TROP, PTT, TSH3, T4F, ETOH, PT #### [facility] [address] [place] [address] [place] Creatinine Clr Calc Pharmacy 157.80 Normal [facility] Comment on above: Performed By: #### M G, ESR, CMP, HS TROP, PTT, TSH3, T4F, ETOH, PT #### [facility] [address] GFR/1.73 sq M.predicted MDRD (S/P/Bld) [Vol rate/Area] mL/min/{1.73_m2} Normal [facility] Comment on above: Performed By: #### M G, ESR, CMP, HS TROP, PTT, TSH3, T4F, ETOH, PT #### [facility] [address] [place] [address] [place] Globulin (S) [Mass/Vol] 2.6 g/dL Normal [facility] Comment on above: Performed By: #### M G, ESR, CMP, HS TROP, PTT, TSH3, T4F, ETOH, PT #### [facility] [address] Glucose [Mass/Vol] 87 mg/dL Normal 70-100 [facility] Comment on above: Result Comment: [facility] Glucose Reference Range is dependent on time and content of last meal. Glucose of more than 200 mg/dL in a nonstressed, ambulatory subject supports the diagnosis of Diabetes Mellitus. ADA recommended reference range Performed By: #### M G, ESR, CMP, HS TROP, PTT, TSH3, T4F, ETOH, PT #### [facility] [address] Potassium [Moles/Vol] 3.5 mmol/L Normal 3.5-5.1 [facility] Comment on above: Performed By: #### M G, ESR, CMP, HS TROP, PTT, TSH3, T4F, ETOH, PT #### [facility] [address] [place] [id number] [place] Protein [Mass/Vol] 6.4 g/dL Normal 6.4-8.9 [facility] Comment on above: Performed By: #### M G, ESR, CMP, HS TROP, PTT, TSH3, T4F, ETOH, PT #### [facility] [address] [place] [id number] [place] Sodium [Moles/Vol] 138 mmol/L Normal 136-145 [facility] Comment on above: Performed By: #### M G, ESR, CMP, HS TROP, PTT, TSH3, T4F, ETOH, PT #### [facility] [address] [place] [id number] [place] Urea nitrogen [Mass/Vol] 6 mg/dL Low 7-25 [facility] Comment on above: Performed By: #### M G, ESR, CMP, HS TROP, PTT, TSH3, T4F, ETOH, PT #### [facility] [address] [place] [id number] [place] Creatinine [Mass/volume] in Serum or PlasmaOrdered By: Sailaja Anderson on 09-15-2024 Creatinine [Mass/Vol] Creatinine [Mass/volume] in Serum or Plasma Low 0.60-1.20 [facility] Dipstick and Microscopicon 0 09-15-2024 Appearance (U) Clear Normal Clear [facility] Comment on above: Order Comment: Name Collection Type:: Clean-Voided Midstream Performed By: #### M G, ESR, CMP, HS TROP, PTT, TSH3, T4F, ETOH, PT #### [facility] [address] [place] [address] [place] Bacteria,Urine None Seen Normal None Seen [facility] Comment on above: Order Comment: Name Collection Type:: Clean-Voided Midstream Performed By: #### M G, ESR, CMP, HS TROP, PTT, TSH3, T4F, ETOH, PT #### [place] [address] [place] Bilirubin,Urine Negative Normal Negative [facility] Comment on above: Order Comment: Name Collection Type:: Clean-Voided Midstream Performed By: #### M G, ESR, CMP, HS TROP, PTT, TSH3, T4F, ETOH, PT #### [place] [address] [place] Color (U) Yellow Normal Yellow [facility] Comment on above: Order Comment: Name Collection Type:: Clean-Voided Midstream Performed By: #### M G, ESR, CMP, HS TROP, PTT, TSH3, T4F, ETOH, PT #### [place] [address] [place] Glucose Ql (U) Normal Normal Normal [facility] Comment on above: Order Comment: Name Collection Type:: Clean-Voided Midstream Performed By: #### M G, ESR, CMP, HS TROP, PTT, TSH3, T4F, ETOH, PT #### [place] [address] [place] Hyaline Casts,Urine None Normal 0-8 [facility] Comment on above: Order Comment: Name Collection Type:: Clean-Voided Midstream Performed By: #### M G, ESR, CMP, HS TROP, PTT, TSH3, T4F, ETOH, PT #### [place] [address] [place] Ketones Ql (U) 1+ High Negative [facility] Comment on above: Order Comment: Name Collection Type:: Clean-Voided Midstream Performed By: #### M G, ESR, CMP, HS TROP, PTT, TSH3, T4F, ETOH, PT #### [address] Leukocyte esterase Test strip Ql (U) Negative Normal Negative [facility] Comment on above: Order Comment: Name Collection Type:: Clean-Voided Midstream Performed By: #### M G, ESR, CMP, HS TROP, PTT, TSH3, T4F, ETOH, PT #### [place] [address] [place] Mucus,Urine Rare Normal [facility] Comment on above: Order Comment: Name Collection Type:: Clean-Voided Midstream Performed By: #### M G, ESR, CMP, HS TROP, PTT, TSH3, T4F, ETOH, PT #### [address] Nitrite,Urine Negative Normal Negative [facility] Comment on above: Order Comment: Name Collection Type:: Clean-Voided Midstream Performed By: #### M G, ESR, CMP, HS TROP, PTT, TSH3, T4F, ETOH, PT #### [place] [address] [place] Occult Blood,Urine Negative Normal Negative The [facility] Comment on above: Order Comment: Name Collection Type:: Clean-Voided Midstream Performed By: #### M G, ESR, CMP, HS TROP, PTT, TSH3, T4F, ETOH, PT #### [place] [address] [place] pH (U) 7.0 [pH] Normal 5.0-9.0 [facility] Comment on above: Order Comment: Name Collection Type:: Clean-Voided Midstream Performed By: #### M G, ESR, CMP, HS TROP, PTT, TSH3, T4F, ETOH, PT #### [place] [address] [place] Protein,Urine Trace High Negative [facility] Comment on above: Order Comment: Name Collection Type:: Clean-Voided Midstream Performed By: #### M G, ESR, CMP, HS TROP, PTT, TSH3, T4F, ETOH, PT #### [address] RBC,Urine 1 [HPF] Normal 0-4 [facility] Comment on above: Order Comment: Name Collection Type:: Clean-Voided Midstream Performed By: #### M G, ESR, CMP, HS TROP, PTT, TSH3, T4F, ETOH, PT #### [address] Specificy [place],Urine 1.025 Normal 1.001-1.030 [facility] Comment on above: Order Comment: Name Collection Type:: Clean-Voided Midstream Performed By: #### M G, ESR, CMP, HS TROP, PTT, TSH3, T4F, ETOH, PT #### [address] Squamous Epithelial Cell,Urine 3 [HPF] High 0-2 [facility] Comment on above: Order Comment: Name Collection Type:: Clean-Voided Midstream Performed By: #### M G, ESR, CMP, HS TROP, PTT, TSH3, T4F, ETOH, PT #### [address] Urobilinogen,Urine 2 mg/dL High Normal [facility] Comment on above: Order Comment: Name Collection Type:: Clean-Voided Midstream Performed By: #### M G, ESR, CMP, HS TROP, PTT, TSH3, T4F, ETOH, PT #### [address] WBC,Urine 1 [HPF] Normal 0-4 [facility] Comment on above: Order Comment: Name Collection Type:: Clean-Voided Midstream Performed By: #### M G, ESR, CMP, HS TROP, PTT, TSH3, T4F, ETOH, PT #### [address] Drug Screen,Urineon 09-15-19 25 Amphetamine Screen,Urine Negative Normal Negative [facility] Comment on above: Performed By: #### M G, ESR, CMP, HS TROP, PTT, TSH3, T4F, ETOH, PT #### [facility] [address] [place] [address] [place] Barbiturate Screen,Urine Negative Normal Negative [facility] Comment on above: Performed By: #### M G, ESR, CMP, HS TROP, PTT, TSH3, T4F, ETOH, PT #### [place] [address] [place] Benzodiazepines Screen,Urine Negative Normal Negative [facility] Comment on above: Performed By: #### M G, ESR, CMP, HS TROP, PTT, TSH3, T4F, ETOH, PT #### [place] [address] [place] Cannabinoid Screen,Urine Negative Normal Negative [facility] Comment on above: Result Comment: Thes e are unconfirmed results and should not be used for legal purposes. Drug Cut-Off Concentration: AMPH 1000 ng/mL OPAL 200 ng/mL AURELIANO 200 ng/mL COCM 300 ng/mL OP 300 ng/mL PCP 25 ng/mL THC 20 ng/mL PERFORMED BY: [place] [address] PATHOLOGIST DEBRIDGING MACHINE OPERATOR CARLOS KNAPP M.D. Performed By: #### M G, ESR, CMP, HS TROP, PTT, TSH3, T4F, ETOH, PT #### [place] [address] [place] Cocaine Screen,Urine Negative Normal Negative [facility] Comment on above: Performed By: #### M G, ESR, CMP, HS TROP, PTT, TSH3, T4F, ETOH, PT #### [facility] [address] [place] [id number] [place] Opiate Screen,Urine Negative Normal Negative [facility] Comment on above: Performed By: #### M G, ESR, CMP, HS TROP, PTT, TSH3, T4F, ETOH, PT #### [place] [address] [place] Phencyclidine Screen,Urine Negative Normal Negative [facility] Comment on above: Performed By: #### M G, ESR, CMP, HS TROP, PTT, TSH3, T4F, ETOH, PT #### [facility] [address] ECG 12 lead ECGon 09-15-2024 ECG 12 lead ECG [facility] Main [place] [address] [place] [address] Electrocardiograph Report Signed Patient: Shazia Chou MR#: [id number] : 1990 Acct:[id number] Age/Sex: 33 / F ADM Date: 09/15/24 Loc: ER Room: Type: [facility] ER Attending Dr: Ordering Provider: Sailaja [...] needs review Confirmed by Agus Hooper DO ([id number]) on 09/15/2024 3:29:15 PM Referred By: Electronically Signed By: Agus Hooper DO Transcribed By: MUS Signed By Agus Hooper DO 5 1529 Normal [facility] Eosinophils Auto (Bld) [#/Vo l]Ordered By: Sailaja Anderson on 09-15-2024 Eosinophils (Bld) [#/Vol] Automated eosinophil count 0.0-0.45 [facility] Eosinophils/100 WBC Auto (Bl d)Ordered By: Sailaja Anderson on 09-15-2024 Eosinophils/100 WBC (Bld) Automated eosinophil % . [facility] Epithelial cells.squamous [# /area] in Urine sediment by Automated countOrdered By: Sailaja Anderson on 09-15-2024 Epithelial cells.squamous Auto (Urine sed) [#/Area] Epithelial cells.squamous [#/area] in Urine sediment by Automated count High 0-2 [facility] Erythrocyte Sedimentation Ra don 09-15-2024 ESR (Bld) [Velocity] 7 mm/h Normal 0-19 [facility] Comment on above: Result Comment: PERF ORMED BY: [place] [address] PATHOLOGIST DEBRIDGING MACHINE OPERATOR CARLOS KNAPP M.D. Performed By: #### M G, ESR, CMP, HS TROP, PTT, TSH3, T4F, ETOH, PT #### [facility] [address] [place] [address] Erythrocyte distribution wid th Auto (RBC) [Ratio]Ordered By: Sailaja Anderson on 09-15-2024 Erythrocyte distribution width (RBC) [Ratio] Erythrocyte distribution width [Ratio] by Automated count High 11.9-15.3 [facility] Erythrocyte sedimentation ra te by Photometric methodOrdered By: Sailaja Anderson on 09-15-2024 ESR Photometric method (Bld) [Velocity] Erythrocyte sedimentation rate by Photometric method 0- [facility] Erythrocytes [#/area] in Uri ne sediment by Automated countOrdered By: Sailaja Anderson on 09-15-2024 RBC Auto (Urine sed) [#/Area] Erythrocytes [#/area] in Urine sediment by Automated count 0- [facility] Ethanol [Mass/volume] in Ser um or PlasmaOrdered By: Sailaja Anderson on 09-15-2024 Ethanol [Mass/Vol] Ethanol [Mass/volume ] in Serum or Plasma [facility] Comment on above: Test not performed Ethyl Alcohol Profileon Ethanol [Mass/Vol] mg/dL Normal [facility] Comment on above: Performed By: #### M G, ESR, CMP, HS TROP, PTT, TSH3, T4F, ETOH, PT #### [facility] [address] [place] [address] Percent Ethanol Not performed Normal [facility] Comment on above: Result Comment: PERF ORMED BY: [place] [address] PATHOLOGIST DEBRIDGING MACHINE OPERATOR CARLOS KNAPP M.D. Performed By: #### M G, ESR, CMP, HS TROP, PTT, TSH3, T4F, ETOH, PT #### [facility] [address] Family Medicine Office/Clini c Noteon 09-15-2024 [...] Mia PERRY Any recent labs: done @ [facility] ER 09/05/24 Health Maintenance UTD: Colonoscopy: NA Mammogram: 12/09/23 [facility] Pelvic/Pap: 12/05 following hysterectomy, states she was [...] her previous pcp in July, to the [facility] ED on 09/05/2024 and again on 09/11/2024. She reports she was at [facility] last week and they performed a bunch of laboratory testing that came back negative. She was seen at in [place] on 09/13/2024 for chest pain and this [...] unspecified site) Reviewed the discharge summary from [facility]- CMP, CRP, ESR, & CBC - WNL Reviewed the Echo from in [place] on the 13 of September- Normal results Awaiting additional records from providers f/u after consult with neurology Ordered: [facility] External Ambulatory Referral 2. Balance problem (R26.89: Other abnormalities of gait and mobility) Reviewed the discharge summary from [facility]- CMP, CRP, ESR, & CBC - WNL Reviewed the Echo from in [place] on the 13 of September- Normal results Awaiting additional records from providers f/u after consult with neurology Ordered: [facility] External Ambulatory Referral 3. Encounter to establish [...] in addres (more content not included)... Normal [facility] Comment on above: Result Comment: Elec tronically Signed By: KURT BLABUENA CNP\.br\Date and Time Signed: 09/15/24 14:31 EST Free T4 (Free Thyroxine)on 0 09-15-2024 Free T4 [Mass/Vol] 1.02 ng/dL Normal 0.61-1.12 [facility] Comment on above: Performed By: #### M G, ESR, CMP, HS TROP, PTT, TSH3, T4F, ETOH, PT ####[facility] [address] [place] [address] [facility] Globulin Calc (S) [Mass/Vol] Ordered By: Sailaja Anderson on 09-15-2024 Globulin (S) [Mass/Vol] Serum globulin measurement by calculation (mass/volume) [facility] Glucose [Mass/volume] in Ser um or PlasmaOrdered By: Sailaja Anderson on 09-15-2024 Glucose [Mass/Vol] Glucose [Mass/volume ] in Serum or Plasma 70-100 [facility] Comment on above: ADA recommended refe [...] [Mass/volume] in Urine by Test strip Normal [facility] HCG ( test) IA.rapi d Ql (U)Ordered By: Sailaja Anderson on 09-15-2024 HCG ( test) Ql (U) Urine human chorionic gonadotropin (hCG) detection by immunoassay [facility] HCG,Urineon 09-15-2024 Beta HCG ( test) Ql (U) Negative Normal [facility] Comment on above: Order Comment: Name Collection Type:: Clean-Voided Midstream Result Comment: PERF ORMED BY: [place] [address] PATHOLOGIST DEBRIDGING MACHINE OPERATOR CARLOS KNAPP M.D. Performed By: #### M G, ESR, CMP, HS TROP, PTT, TSH3, T4F, ETOH, PT #### [address] Hematocrit Auto (Bld) [Volum e fraction]Ordered By: Sailaja Anderson on 09-15-2024 Hematocrit (Bld) [Volume fraction] Hematocrit [Volume Fraction] of Blood by Automated count 34.0-46.4 [facility] Hemoglobin Test strip Ql (U) Ordered By: Sailaja Anderson on 09-15-2024 Hemoglobin Ql (U) Hemoglobin [Presence ] in Urine by Test strip Negative [facility] Hemoglobin [Mass/volume] in BloodOrdered By: Sailaja Anderson on 09-15-2024 Hemoglobin (Bld) [Mass/Vol] Hemoglobin [Mass/volume] in Blood 11.8-15.4 [facility] Hyaline casts [#/area] in Ur ine sediment by Automated countOrdered By: Sailaja Anderson on 09-15-2024 Hyaline casts Auto (Urine sed) [#/Area] Hyaline casts [#/area] in Urine sediment by Automated count 0-8 [facility] INR in Platelet poor plasma by Coagulation assayOrdered By: Sailaja Anderson on 09-15-2024 INR Coag (PPP) [Relative time] INR in Platelet poor plasma by Coagulation assay [facility] Comment on above: INR Therapeutic Rang [...] n Urine by Test strip High Negative [facility] Leukocyte esterase [Presence ] in Urine by Test stripOrdered By: Sailaja Anderson on 09-15-2024 Leukocyte esterase Test strip Ql (U) Leukocyte esterase [Presence] in Urine by Test strip Negative [facility] Leukocytes [#/area] in Urine sediment by Automated countOrdered By: Sailaja Anderson on 09-15-2024 WBC Auto (Urine sed) [#/Area] Leukocytes [#/area] in Urine sediment by Automated count 0-4 [facility] Leukocytes [#/volume] correc caitlin for nucleated erythrocytes in Blood by Automated counOrdered By: Sailaja Anderson on 09-15-2024 WBC corrected for nucl RBC Auto (Bld) [#/Vol] Leukocytes [#/volume] corrected for nucleated erythrocytes in Blood by Automated coun 3.8-11.6 [facility] Lymphocytes Auto (Bld) [#/Vo l]Ordered By: Sailaja Anderson on 09-15-2024 Lymphocytes (Bld) [#/Vol] Lymphocytes [#/volume] in Blood by Automated count 1.00-4.8 [facility] Lymphocytes/100 WBC Auto (Bl d)Ordered By: Sailaja Anderson on 09-15-2024 Lymphocytes/100 WBC (Bld) Lymphocytes/100 leukocytes in Blood by Automated count . [facility] MCH Auto (RBC) [Entitic mass ]Ordered By: Sailaja Anderson on 09-15-2024 MCH (RBC) [Entitic mass] MCH [Entitic mass] by Automated count 24.7-34.3 [facility] MCHC Auto (RBC) [Mass/Vol]Or dered By: Sailaja Anderson on 09-15-2024 MCHC (RBC) [Mass/Vol] MCHC [Mass/volume] by Automated count 32.0-35.0 [facility] MCV Auto (RBC) [Entitic vol] Ordered By: Sailaja Anderson on 09-15-2024 MCV (RBC) [Entitic vol] MCV [Entitic volume] by Automated count 80-100 [facility] Magnesiumon 09-15-2024 Magnesium [Mass/Vol] 1.7 mg/dL Low 1.9-2.7 [facility] Comment on above: Performed By: #### M G, ESR, CMP, HS TROP, PTT, TSH3, T4F, ETOH, PT #### [facility] [address] Magnesium [Mass/volume] in S tushar or PlasmaOrdered By: Sailaja Anderson on 09-15-2024 Magnesium [Mass/Vol] Magnesium [Mass/vol ume] in Serum or Plasma Low 1.9-2.7 [facility] Monocyte distribution width [Entitic volume] in Blood by AutomatedOrdered By: Sailaja Anderson on 09-15-2024 Monocyte distribution width Auto (Bld) [Entitic vol] Monocyte distribution width [Entitic volume] in Blood by Automated 0.00-20.00 [facility] Monocytes Auto (Bld) [#/Vol] Ordered By: Sailaja Anderson on 09-15-2024 Monocytes (Bld) [#/Vol] Automated blood monocyte count 0.0-0.8 [facility] Monocytes/100 WBC Auto (Bld) Ordered By: Sailaja Anderson on 09-15-2024 Monocytes/100 WBC (Bld) Automated monocyte % . [facility] Mucus [Presence] in Urine by AutomatedOrdered By: Sailaja Anderson on 09-15-2024 Mucus Auto Ql (U) Mucus [Presence] in Urine by Automated [facility] Neutrophils Auto (Bld) [#/Vo l]Ordered By: Sailaja Anderson on 09-15-2024 Neutrophils (Bld) [#/Vol] Neutrophils [#/volume] in Blood by Automated count 1.8-7.7 [facility] Neutrophils/100 WBC Auto (Bl d)Ordered By: Sailaja Anderson on 09-15-2024 Neutrophils/100 WBC (Bld) Automated neutrophil % . [facility] Nitrite Test strip Ql (U)Ord ered By: Sailaja Anderson on 09-15-2024 Nitrite Ql (U) Nitrite [Presence] i n Urine by Test strip Negative [facility] No Panel InformationOrdered By: Sailaja Anderson on 09-15-2024 Estimated GFR (CKD-EPI) > 60.0 mL/Min [facility] Creatinine Clearance (Chem 157.80 [facility] Nucleated erythrocytes [Pres ence] in Blood by Automated countOrdered By: Sailaja Anderson on 09-15-2024 Nucleated RBC Auto Ql (Bld) Nucleated erythrocytes [Presence] in Blood by Automated count 0-0.5 [facility] Opiates [Presence] in Urine by Screen methodOrdered By: Sailaja Anderson on 09-15-2024 Opiates Screen Ql (U) Opiates [Presence] in Urine by Screen method Negative [facility] Partial Thromboplastin Timeo n 09-15-2024 aPTT Coag (Bld) [Time] 28.0 s Normal 25.1-36.5 [facility] Comment on above: Result Comment: A he matocrit value greater than 55% may lead to inaccurate results in coagulation testing. Patients having hematocrit values >55% require a special collection tube for coagulation studies. Please contact the laboratory at [phone] for redraw instructions. PERFORMED BY: [place] [address] PATHOLOGIST DEBRIDGING MACHINE OPERATOR CARLOS KNAPP M.D. Performed By: #### M G, ESR, CMP, HS TROP, PTT, TSH3, T4F, ETOH, PT #### [facility] [address] [place] [id number] [facility] Phencyclidine Screen Ql (U)O rdered By: Sailaja Anderson on 09-15-2024 Phencyclidine Ql (U) Phencyclidine [Presence] in Urine by Screen method Negative [facility] Platelet mean volume Auto (B ld) [Entitic vol]Ordered By: Sailaja Anderson on 09-15-2024 Platelet mean volume (Bld) [Entitic vol] Platelet mean volume [Entitic volume] in Blood by Automated count 6.3-10.7 [facility] Platelets Auto (Bld) [#/Vol] Ordered By: Sailaja Anderson on 09-15-2024 Platelets (Bld) [#/Vol] Platelets [#/volume] in Blood by Automated count 150-450 [facility] Potassium [Moles/volume] in Serum or PlasmaOrdered By: Sailaja Anderson on 09-15-2024 Potassium [Moles/Vol] Potassium [Moles/volume] in Serum or Plasma 3.5-5.1 [facility] Protein Test strip (U) [Mass /Vol]Ordered By: Sailaja Anderson on 09-15-2024 Protein (U) [Mass/Vol] Protein [Mass/vol ume] in Urine by Test strip High Negative [facility] Protein [Mass/volume] in Ser um or PlasmaOrdered By: Sailaja Anderson on 09-15-2024 Protein [Mass/Vol] Protein [Mass/volume ] in Serum or Plasma 6.4-8.9 [facility] Prothrombin Time INRon 09-15 INR Coag (PPP) [Relative time] 0.9 {INR} Normal [facility] Comment on above: Result [...] 3 - 4.5 Performed By: #### M G, ESR, CMP, HS TROP, PTT, TSH3, T4F, ETOH, PT #### [facility] [address] [place] [address] PT Coag (PPP) [Time] 10.4 s Normal 9.0-12.9 [facility] Comment on above: Result Comment: A he matocrit value greater than 55% may lead to inaccurate results in coagulation testing. Patients having hematocrit values >55% require a special collection tube for coagulation studies. Please contact the laboratory at [phone] for redraw instructions. Performed By: #### M G, ESR, CMP, HS TROP, PTT, TSH3, T4F, ETOH, PT #### [facility] [address] [place] [address] [facility] Prothrombin time (PT)Ordered By: Sailaja Anderson on 09-15-2024 PT Coag (PPP) [Time] Prothrombin time (PT) 9.0- 12.9 [facility] Comment on above: A hematocrit value g reater than 55% may lead to inaccurate results in coagulation testing. Patients having hematocrit values >55% require a special collection tube for coagulation studies. Please contact the laboratory at [phone] for redraw instructions. RBC Auto (Bld) [#/Vol]Ordere d By: Sailaja Anderson on 09-15-2024 RBC (Bld) [#/Vol] Erythrocytes [#/volu me] in Blood by Automated count 3.60-5.00 [facility] Serum or plasma albumin/glob ulin mass ratioOrdered By: Sailaja Anderson on 09-15-2024 Albumin/Globulin [Mass ratio] Serum or plasma albumin/globulin mass ratio [facility] Serum or plasma anion gap de terminationOrdered By: Sailaja Anderson on 09-15-2024 Anion gap [Moles/Vol] Serum or plasma an ion gap determination 6.0-15.0 [facility] Sodium [Moles/volume] in Ser um or PlasmaOrdered By: Sailaja Anderson on 09-15-2024 Sodium [Moles/Vol] Sodium [Moles/volume ] in Serum or Plasma 136-145 [facility] Specific gravity Test strip (U) [Rel density]Ordered By: Sailaja Anderson on 09-15-2024 Specific gravity (U) [Rel density] Specific gravity of Urine by Test strip 1.001-1.030 [facility] Thyroid Stimulating Hormoneo n 09-15-2024 TSH Qn 0.73 m[IU]/L Normal 0.45-5.33 [facility] Comment on above: Result Comment: PERF ORMED BY: [facility] [address] [place] [address] PATHOLOGIST DEBRIDGING MACHINE OPERATOR CARLOS KNAPP M.D. Performed By: #### M G, ESR, CMP, HS TROP, PTT, TSH3, T4F, ETOH, PT ####[facility] [id number] Thyrotropin [Units/volume] i n Serum or PlasmaOrdered By: Sailaja Anderson on 09-15-2024 TSH Qn Thyrotropin [Units/volume] in Serum or Plasma 0.45-5.33 [facility] Thyroxine (T4) free [Mass/vo lume] in Serum or PlasmaOrdered By: Sailaja Anderson on 09-15-2024 Free T4 [Mass/Vol] Thyroxine (T4) free [Mass/volume] in Serum or Plasma 0.61-1.12 [facility] Troponin I High Sensitivityo n 09-15-2024 Troponin I High Sensitivity 2.3 pg/mL Normal 0.0-15.0 [facility] Comment on above: Result Comment: PERF ORMED BY: [place] [id number] PATHOLOGIST DEBRIDGING MACHINE OPERATOR CARLOS NKAPP M.D. Performed By: #### M G, ESR, CMP, HS TROP, PTT, TSH3, T4F, ETOH, PT #### [facility] [address] Troponin I.cardiac [Mass/vol ume] in Serum or Plasma by Detection limit <= 0.01 ng/Ordered By: Sailaja Anderson on 09-15-2024 Troponin I.cardiac DL <= 0.01 ng/mL [Mass/Vol] Troponin I.cardiac [Mass/volume] in Serum or Plasma by Detection limit <= 0.01 ng/ 0.0-15.0 [facility] Urea nitrogen [Mass/volume] in Serum or PlasmaOrdered By: Sailaja Anderson on 09-15-2024 Urea nitrogen [Mass/Vol] Urea nitrogen [Mass/volume] in Serum or Plasma Low 7-25 [facility] Urobilinogen Test strip (U) [Mass/Vol]Ordered By: Sailaja Anderson on 09-15-2024 Urobilinogen (U) [Mass/Vol] Urobilinogen [Mass/volume] in Urine by Test strip High Normal [facility] WBC Auto (Bld) [#/Vol]Ordere d By: Sailaja Anderson on 09-15-2024 WBC (Bld) [#/Vol] Leukocytes [#/volume ] in Blood by Automated count 3.8-11.6 [facility] X-ray reportOrdered By: Wiley Shetty on 09-15-2024 Study report [facility] Main [address] [address] XRay Report Signed Patient: Shazia Chou MR#: [id number] : 1990 Acct:[id number] Age/Sex: 33 / F ADM Date: Loc: ER Room: Type: [facility] ER Attending Dr: Copies to: Sailaja [...] Wiley Shetty M.D.09/15/2024 3:56 PM Dictation Location: [place] [address] Transcribed By: [facility] 09/15/24 1556 Dictated By: Wiley Shetty II, MD 09/15/241555 Signed By: 09/15/24 155 [facility] Work Phone: XR chest 2V*on 09-15-2024 XR chest 2V* [facility] Main [address] [address] XRay Report Signed Patient: Shazia Chou MR#: [id number] : 1990 Acct:[id number] Age/Sex: 33 / F ADM Date: 09/15/24 Loc: ER Room: Type: [facility] ER Attending Dr: Copies to: Sailaja [...] Wiley Shetty M.D.09/15/2024 3:56 PM Dictation Location: [place] [address] Transcribed By: [facility] 09/15/24 1556 Dictated By: Wiley Shetty II, MD 09/15/24 1556 Signed By: 09/15/24 1556 Normal [facility] aPTT in Platelet poor plasma by Coagulation assayOrdered By: Sailaja Anderson on 09-15-2024 aPTT Coag (PPP) [Time] Activated partial thromboplastin time (aPTT) in platelet poor plasma by coagulation a 25.1-36.5 [facility] Comment on above: A hematocrit value g reater than 55% may lead to inaccurate results in coagulation testing. Patients having hematocrit values >55% require a special collection tube for coagulation studies. Please contact the laboratory at [phone] for redraw instructions. pH Test strip (U)Ordered By: Sailaja Anderson on 09-15-2024 pH (U) pH of Urine by Test strip 5.0-9.0 [facility] TRANSTHORACIC ECHO (TTE) [facility] 09-13-2024 TRANSTHORACIC ECHO (TTE) [address], Suite [facility], [place] [address] TRANSTHORACIC ECHOCARDIOGRAM REPORT Patient Name: SHAZIA CHOU Reading Physician: [id number] Adithya Boswell MD, [facility] Study Date: 09/13/2024 Ordering Provider: [id number] ALEAH HOWARD MRN/PID: [id number] Fellow: Nurse: Date of /Age: 4 1990 / 33 years Roll Wrapper: Julissa Licona RD, RVT Gender Assigned at F Additional Staff: : Height: 170.18 cm Admit Date: Weight: 85.28 kg Admission Status: BSA / BMI: 1.97 m2 / 29.45 Department Location: [facility] kg/m2 [facility] Blood Pressure: 118 /76 mmHg Study Type: TRANSTHORACIC ECHO (TTE) COMPLETE Diagnosis/ICD: Angina pectoris, unspecified-I20.9; Shortness of breath-R06.02; Palpitations-R00.2; Family history of ischemic heart disease and other diseases of the circulatory system-Z82.49; Essential (primary) hypertension-I10 Indication: Tobacco Abuse, Anxiety/Depression, Pseudotumor Cerebri, ETOH Abuse, Bipolar Disorder, History of Gastric Bypass CPT Codes: Echo Complete w Full Doppler-25487 Study Detail: The following Echo studies were [...] 0.7 m/s (0.6-0.9m/s) PV Max P.1 mmHg [id number] Adithya Boswell MD, FACC Electronically signed on 09/13/2024 at 4:00:19 PM Final Normal [facility] US Heart TransthoracicOrdere d By: Adithya Boswell on 09-13-2024 Aortic Valve Area by Continuity of Peak Velocity 2.48 cm2 [facility] Work Phone: Aortic Valve Area by Continuity of VTI 2.66 cm2 [facility] Work Phone: AV mn grad 4 mmHg [facility] Work Phone: AV pk grad 8 mmHg [facility] Work Phone: AV pk joellen 1.43 m/s [facility] Work Phone: LV A4C EF 67.8 [facility] Work Phone: LV Biplane EF 68 % [facility] Work Phone: LV EF 68 % [facility] Work Phone: LVIDd 5.01 cm [facility] Work Phone: LVOT diam 2.2 cm [facility] Work Phone: MV avg E/e' ratio 6.[address] [facility] Work Phone: MV E/A ratio 1.52 [facility] Work Phone: RVSP 27 mmHg [facility] Work Phone: [facility] Work Phone: Heart Transthoracicon [address], [address] [place] [address] TRANSTHORACIC ECHOCARDIOGRAM REPORT Patient Name: SHAZIA SONYA Garcia Physician: [id number] Adithya Boswell MD, [facility] Study Date: 09/13/2024 Ordering Provider: [id number] ALEAH HOWARD MRN/PID: [id number] Fellow: Nurse: Date of /Age: 4 1990 / 33 years Roll Wrapper: Julissa Licona RDCS, RVT Gender Assigned at F Additional Staff: : Height: 170.18 cm Admit Date: Weight: 85.28 kg Admission Status: BSA / BMI: 1.97 m2 / 29.45 Department Location: [facility] kg/m2 [facility] Blood Pressure: 118 /76 mmHg Study Type: TRANSTHORACIC ECHO (TTE) COMPLETE Diagnosis/ICD: Angina pectoris, unspecified-I20.9; Shortness of breath-R06.02; Palpitations-R00.2; Family history of ischemic heart disease and other diseases of the circulatory system-Z82.49; Essential (primary) hypertension-I10 Indication: Tobacco Abuse, Anxiety/Depression, Pseudotumor Cerebri, ETOH Abuse, Bipolar Disorder, History of Gastric Bypass CPT Codes: Echo Complete w Full Doppler-77611 Study Detail: The following Echo studies were [...] LVOT Max Joellen (more content not included)... KATALINAO Adithya Boswell M D - 09/13/[address], [address] [place] [address] TRANSTHORACIC ECHOCARDIOGRAM REPORT Patient Name: SHAZIA ANTONYJOEL Garcia Physician: [id number] Adithya Boswell MD, [facility] Study Date: 09/13/2024 Ordering Provider: [id number] ALEAH HOWARD MRN/PID: [id number] Fellow: Nurse: Date of /Age: 4 1990 / 33 years Roll Wrapper: Julissa Licona RDCS, RVT Gender Assigned at F Additional Staff: : Height: 170.18 cm Admit Date: Weight: 85.28 kg Admission Status: BSA / BMI: 1.97 m2 / 29.45 Department Location: [facility] kg/m2 [facility] Blood Pressure: 118 /76 mmHg Study Type: TRANSTHORACIC ECHO (TTE) COMPLETE Diagnosis/ICD: Angina pectoris, unspecified-I20.9; Shortness of breath-R06.02; Palpitations-R00.2; Family history of ischemic heart disease and other diseases of the circulatory system-Z82.49; Essential (primary) hypertension-I10 Indication: Tobacco Abuse, Anxiety/Depression, Pseudotumor Cerebri, ETOH Abuse, Bipolar Disorder, History of Gastric Bypass CPT Codes: Echo Complete w Full Doppler-95661 Study Detail: The following Echo studies were [...] 0.7 m/s (0.6-0.9m/s) PV Max P.1 mmHg [id number] Adithya Boswell MD, [facility] Electronically signed on 09/13/2024 at 4:00:19 PM Final [facility] Work Phone: EBV Early Abon 08-19-2024 EBV early diffuse IgG Qn (S) <9.0 Invalid Interpretation Code 0.0-8.9 [facility] Comment on above: Result Comment: Nega tive < 9.0 Equivocal 9.0 - 10.9 Positive >10.9 Performed at: [facility] [id number] PhD Cordelia Madera Performed By: #### 1 [id number] #### [facility] [address] [place] [address] CHEMISTRYOrdered By: SYSTEM SYSTEM on 08-18-2024 Ferritin [...] By: Rayne Pinto on 08-18-2024 Test Code 764651 1 Invalid Interpretation Code [facility] [employer] Test Name a1C Invalid Interpretation Code [employer] [employer] [employer] ECG 12 Leadon 08-16-2024 [facility] Work Phone: 25(OH)D3 SerPl-ncon 2023 25-hydroxyvitamin D3 [Mass/Vol] 41.9 ng/mL Normal 31.0-80.0 [facility] Comment on above: Order Comment: Speci men Type: BLOOD SPECIMENOrdering Facility: [facility] Address: [address] [place] [address] Result Comment: Clas sification of 25 [place] Vitamin D status: Deficiency/Insufficiency: < or = 30 ng/ml. Sufficiency/Optimal Levels: 31-80 ng/mL Toxicity: > 100 ng/mL. Test performed by chemiluminescent immunoassay. Performed By: #### 1 989-3 ####[facility] [id number] [facility] [id number] [id number] [place] CBC W Auto Differential pane l (Bld)on 07-26-2024 Basophils (Bld) [#/Vol] 0.05 10*3/uL Normal <0.11 [facility] Comment on above: Order Comment: Speci men Type: BLOOD SPECIMEN Ordering Facility: [facility] Address: [facility] [place] [address] Performed By: #### 5 7021-8 #### [facility] CLIA [id number] [address] [place] [address]32 Basophils/100 WBC (Bld) 0.4 % Normal [facility] Comment on above: Order Comment: Speci men Type: BLOOD SPECIMEN Ordering Facility: [facility] Address: [address] [place] [address] Performed By: #### 5 7021-8 #### [facility] CLIA [id number] [address] [place] [address] 14270 Differential cell count method Nom (Bld) Auto Normal [facility] Comment on above: Order Comment: Speci men Type: BLOOD SPECIMEN Ordering Facility: [facility] Address: [address] [place] [address] Performed By: #### 5 7021-8 #### [facility] CLIA [id number] [address] [place] [address] 15072 Eosinophils (Bld) [#/Vol] 0.29 10*3/uL Normal <0.46 [facility] Comment on above: Order Comment: Speci men Type: BLOOD SPECIMEN Ordering Facility: [facility] Address: [address] [place] [address] Performed By: #### 5 7021-8 #### [facility] CLIA [id number] [address] [place] [address] Eosinophils/100 WBC (Bld) 2.3 % Normal [facility] Comment on above: Order Comment: Speci men Type: BLOOD SPECIMEN Ordering Facility: [facility] Address: [address] [place], [place] [address] Performed By: #### 5 7021-8 #### [facility] CLIA [id number] [address] [place] [address]671 Erythrocyte distribution width (RBC) [Ratio] 16.4 % High 11.5-15.0 [facility] Comment on above: Order Comment: Speci men Type: BLOOD SPECIMEN Ordering Facility: [facility] Address: [address] [place] [address] Performed By: #### 5 7021-8 #### [facility] CLIA [id number] [address] [place] [address]75 Hematocrit (Bld) [Volume fraction] 38.2 % Normal 36.0-46.0 [facility] Comment on above: Order Comment: Speci men Type: BLOOD SPECIMEN Ordering Facility: [facility] Address: [address] [place] [address] Performed By: #### 5 7021-8 #### [facility] CLIA [id number] [address] [place] [address] 99324 Hemoglobin (Bld) [Mass/Vol] 13.0 g/dL Normal 11.5-15.5 [facility] Comment on above: Order Comment: Speci men Type: BLOOD SPECIMEN Ordering Facility: [facility] Address: [address] [place] [address] Performed By: #### 5 7021-8 #### [facility] CLIA [id number] [address] [place] [address] 37830 Immature granulocytes (Bld) [#/Vol] 0.04 10*3/uL Normal <0.10 [facility] Comment on above: Order Comment: Speci men Type: BLOOD SPECIMEN Ordering Facility: [facility] Address: [address] [place] [address] Performed By: #### 5 7021-8 #### [facility] CLIA [id number] [address] [place] [address] Immature granulocytes/100 WBC (Bld) 0.3 % Normal [facility] Comment on above: Order Comment: Speci men Type: BLOOD SPECIMEN Ordering Facility: [facility] Address: [address] [place] [address] Performed By: #### 5 7021-8 #### [facility] CLIA [id number] [address] [place] [address] Lymphocytes (Bld) [#/Vol] 1.78 10*3/uL Normal 1.00-4.00 [facility] Comment on above: Order Comment: Speci men Type: BLOOD SPECIMEN Ordering Facility: [facility] Address: [address] [place] [address] Performed By: #### 5 7021-8 #### [facility] CLIA [id number] [address] [place] [address] Lymphocytes/100 WBC (Bld) 14.4 % Normal [facility] Comment on above: Order Comment: Speci men Type: BLOOD SPECIMEN Ordering Facility: [facility] Address: [address] [place] [address] Performed By: #### 5 7021-8 #### [facility] CLIA [id number] [address] [place] [address] 76357 MCH (RBC) [Entitic mass] 31.4 pg Normal 26.0-34.0 [facility] Comment on above: Order Comment: Speci men Type: BLOOD SPECIMEN Ordering Facility: [facility] Address: [address] [place] [address] Performed By: #### 5 7021-8 #### [facility] CLIA [id number] [address] [place] [address] MCHC (RBC) [Mass/Vol] 34.0 g/dL Normal 30.5-36.0 [facility] Comment on above: Order Comment: Speci men Type: BLOOD SPECIMEN Ordering Facility: [facility] Address: [address] [place] [address] Performed By: #### 5 7021-8 #### [facility] CLIA [id number] [address] [place] [address] 85458 MCV (RBC) [Entitic vol] 92.3 fL Normal 80.0-100.0 [facility] Comment on above: Order Comment: Speci men Type: BLOOD SPECIMEN Ordering Facility: [facility] Address: [address] [place] [address] Performed By: #### 5 7021-8 #### [facility] CLIA [id number] [address] [place] [address] 01600 Monocytes (Bld) [#/Vol] 0.62 10*3/uL Normal <0.87 [facility] Comment on above: Order Comment: Speci men Type: BLOOD SPECIMEN Ordering Facility: [facility] Address: [address] [place] [address] Performed By: #### 5 7021-8 #### [facility] CLIA [id number] [address] [place] [address] 60896 Monocytes/100 WBC (Bld) 5.0 % Normal [facility] Comment on above: Order Comment: Speci men Type: BLOOD SPECIMEN Ordering Facility: [facility] Address: [address] [place] [address] Performed By: #### 5 7021-8 #### [facility] CLIA [id number] [address] [place] [address] Neutrophils (Bld) [#/Vol] 9.58 10*3/uL High 1.45-7.50 [facility] Comment on above: Order Comment: Speci men Type: BLOOD SPECIMEN Ordering Facility: [facility] Address: [address] [place] [address] Performed By: #### 5 7021-8 #### [facility] CLIA [id number] [address] [place] [address] 70521 Neutrophils/100 WBC (Bld) 77.6 % Normal [facility] Comment on above: Order Comment: Speci men Type: BLOOD SPECIMEN Ordering Facility: [facility] Address: [address] [place] [address] Performed By: #### 5 7021-8 #### [facility] CLIA [id number] [address] [place] [address]644 Nucleated RBC (Bld) [#/Vol] 10*3/uL Normal <0.01 [facility] Comment on above: Order Comment: Speci men Type: BLOOD SPECIMEN Ordering Facility: [facility] Address: [address] [place] [address] Performed By: #### 5 7021-8 #### [facility] CLIA [id number] [address] [place] [address] 33130 Nucleated RBC/100 WBC (Bld) [Ratio] 0.0 /[address] [facility] Comment on above: Order Comment: Speci men Type: BLOOD SPECIMEN Ordering Facility: [facility] Address: [address] [place] [address] Performed By: #### 5 7021-8 #### [facility] CLIA [id number] [address] [place] [address]403 Platelet mean volume (Bld) [Entitic vol] 10.8 fL Normal 9.0-12.7 [facility] Comment on above: Order Comment: Speci men Type: BLOOD SPECIMEN Ordering Facility: [facility] Address: [address] [place] [address] Performed By: #### 5 7021-8 #### [facility] CLIA [id number] [address] [place] [address] 8[address]39 Platelets (Bld) [#/Vol] 302 10*3/uL Normal 150-400 [facility] Comment on above: Order Comment: Speci men Type: BLOOD SPECIMEN Ordering Facility: [facility] Address: [address] [place] [address] Performed By: #### 5 7021-8 #### [facility] CLIA [id number] [address] [place] [address] RBC (Bld) [#/Vol] 4.14 10*6/uL Normal 3.90-5.20 [facility] Comment on above: Order Comment: Speci men Type: BLOOD SPECIMEN Ordering Facility: [facility] Address: [address] [place] [address] Performed By: #### 5 7021-8 #### [facility] CLIA [id number] [address] [place] [address] 84475 WBC (Bld) [#/Vol] 12.36 10*3/uL High 3.70-11.00 [facility] Comment on above: Order Comment: Speci men Type: BLOOD SPECIMEN Ordering Facility: [facility] Address: [address] [place] [address] Performed By: #### 5 7021-8 #### [facility] CLIA [id number] [address] [place] [address]2216 Comprehensive metabolic 2000 panelon 07-26-2024 Albumin [Mass/Vol] 4.7 g/dL Normal 3.9-4.9 [facility] Comment on above: Order Comment: Speci men Type: BLOOD SPECIMEN Ordering Facility: [facility] Address: [address] [place] [address] Performed By: #### 5 5454-3 #### [facility] CLIA [id number] [address] [place] [address] [place] ALP [Catalytic activity/Vol] 64 U/L Normal 34-123 [facility] Comment on above: Order Comment: Speci men Type: BLOOD SPECIMEN Ordering Facility: [facility] Address: [address] [place] [address] Performed By: #### 5 5454-3 #### [facility] CLIA [id number] [address] [place] [address] [place] ALT [Catalytic activity/Vol] 13 U/L Normal 7-38 [facility] Comment on above: Order Comment: Speci men Type: BLOOD SPECIMEN Ordering Facility: [facility] Address: [address] [place] [address] Performed By: #### 5 5454-3 #### [facility] CLIA [id number] [address] [place], [place] [address] [place] Anion gap [Moles/Vol] 11 mmol/L Normal 8-15 [facility] Comment on above: Order Comment: Speci men Type: BLOOD SPECIMEN Ordering Facility: [facility] Address: [address] [place] [address] Performed By: #### 5 5454-3 #### [facility] CLIA [id number] [address] [place] [address] [place] AST [Catalytic activity/Vol] 20 U/L Normal 13-35 [facility] Comment on above: Order Comment: Speci men Type: BLOOD SPECIMEN Ordering Facility: [facility] Address: [address] [place] [address] Performed By: #### 5 5454-3 #### [facility] CLIA [id number] [address] [place] [address] [place] Bilirubin [Mass/Vol] 0.2 mg/dL Normal 0.2-1.3 [facility] Comment on above: Order Comment: Speci men Type: BLOOD SPECIMEN Ordering Facility: [facility] Address: [address] [place] [address] Performed By: #### 5 5454-3 #### [facility] CLIA [id number] [address] [place] [address] [place] Calcium [Mass/Vol] 9.6 mg/dL Normal 8.5-10.2 [facility] Comment on above: Order Comment: Speci men Type: BLOOD SPECIMEN Ordering Facility: [facility] Address: [address] [place] [address] Performed By: #### 5 5454-3 #### [facility] CLIA [id number] [address] [place] [address] [place] Chloride [Moles/Vol] 106 mmol/L Normal 98-107 [facility] Comment on above: Order Comment: Speci men Type: BLOOD SPECIMEN Ordering Facility: [facility] Address: [address] [place] [address] Performed By: #### 5 5454-3 #### [facility] CLIA [id number] [address] [place] [address] [place] CO2 [Moles/Vol] 22 mmol/L Normal 22-30 [facility] Comment on above: Order Comment: Speci men Type: BLOOD SPECIMEN Ordering Facility: [facility] Address: [address] [place] [address] Performed By: #### 5 5454-3 #### [facility] CLIA [id number] [address] [place] [address] [place] Creatinine [Mass/Vol] 0.69 mg/dL Normal 0.58-0.96 [facility] Comment on above: Order Comment: Speci men Type: BLOOD SPECIMEN Ordering Facility: [facility] Address: [address] [place] [address] Performed By: #### 5 5454-3 #### [facility] CLIA [id number] [address] [place] [address] [place] Creatinine and Glomerular filtration rate.predicted panel (S/P/Bld) 116 mL/min/1.73m??? Normal >=60 [facility] Comment on above: Order Comment: Speci men Type: BLOOD SPECIMEN Ordering Facility: [facility] Address: [address] [place] [address] Result Comment: Brenda mated Glomerular Filtration Rate [...] GFR. Performed By: #### 5 5454-3 #### [facility] CLIA [id number] [address] [place] [address] [place] Glucose [Mass/Vol] 91 mg/dL Normal 74-99 [facility] Comment on above: Order Comment: Speci men Type: BLOOD SPECIMEN Ordering Facility: [facility] Address: [address] [place] [address] Result Comment: The [place] Diabetes Association (ADA) provides guidance for cutoff [...] Standards of Medical Care in Diabetes 2016, [place] [employer] Association. Diabetes Care. 2016.39(Suppl 1). Performed By: #### 5 5454-3 #### [facility] CLIA [id number] [address] [place] [address] [place] Potassium [Moles/Vol] 4.3 mmol/L Normal 3.7-5.1 [facility] Comment on above: Order Comment: Speci men Type: BLOOD SPECIMEN Ordering Facility: [facility] Address: [address] [place], [place] [address] Performed By: #### 5 5454-3 #### [facility] CLIA [id number] [address] [place] [address] [place] Protein [Mass/Vol] 7.3 g/dL Normal 6.3-8.0 [facility] Comment on above: Order Comment: Speci men Type: BLOOD SPECIMEN Ordering Facility: [facility] Address: [address] [place] [address] Performed By: #### 5 5454-3 #### [facility] CLIA [id number] [address] [place] [address] [place] Sodium [Moles/Vol] 139 mmol/L Normal 136-144 [facility] Comment on above: Order Comment: Speci men Type: BLOOD SPECIMEN Ordering Facility: [facility] Address: [address] [place] [address] Performed By: #### 5 5454-3 #### [facility] CLIA [id number] [address] [place] [address] [place] Urea nitrogen [Mass/Vol] 9 mg/dL Normal 7-21 [facility] Comment on above: Order Comment: Speci men Type: BLOOD SPECIMEN Ordering Facility: [facility] Address: [address] [place] [address] Performed By: #### 5 5454-3 #### [facility] CLIA [id number] [address] [place] [address] [place] Ferritin SerPl-ncon 2023 Ferritin [Mass/Vol] 17.5 ng/mL Normal 14.7-205.1 [facility] Comment on above: Order Comment: Speci men Type: BLOOD SPECIMENOrdering Facility: [facility] Address: [address] [place] [address] Performed By: #### 2 731-8, 00772-9, 2276-4 ####[facility] [id number] [place] [address] [place] Iron and Iron binding capaci ty panelon 07-26-2024 Iron [Mass/Vol] 114 ug/dL Normal 41-186 [facility] Comment on above: Order Comment: Speci men Type: BLOOD SPECIMENOrdering Facility: [facility] Address: [address] [place] [address] Performed By: #### 2 731-8, 16019-2, 2276-4 ####[facility] [id number] [place] [address] [place] Iron binding capacity [Mass/Vol] 360 ug/dL Normal 232-386 [facility] Comment on above: Order Comment: Speci men Type: BLOOD SPECIMENOrdering Facility: [facility] Address: [address] [place] [address] Performed By: #### 2 731-8, 88721-6, 2276-4 ####[facility] [id number] [place] [address] [place] Iron/TIBC [Molar ratio] 31.7 % Normal 15.0-57.0 [facility] Comment on above: Order Comment: Speci men Type: BLOOD SPECIMENOrdering Facility: [facility] Address: [address] [place] [address] Performed By: #### 2 731-8, 76024-0, 2276-4 ####[facility] [id number] [address] [place] PTH-Intact [facility] 07-15 Parathyrin.intact [Mass/Vol] 17 pg/mL Normal 15-65 [facility] Comment on above: Order Comment: Speci men Type: BLOOD SPECIMENOrdering Facility: [facility] Address: [address] [place] [address] Performed By: #### 2 731-8, 20942-9, 2276-4 ####[facility] [id number] [place] [id number] [place] CNOVon 07-25-2024 CNOV Office Visit (FPNRMO C) SHAZIA CHOU ([id number]) 1990 F Date Time Provider Department 07/25/24 3:00 PM TEVIN CARSON [facility] During your visit today, we recorded the following information about you: Pulse Blood pressure Weight 67/minute 122/72 83.8 kg Tevin Carson DO 07/25/2024 4:57 PM Signed [facility] Visit Assessment and Plan 1. Bipolar [...] appointment. She is scheduled to see a bottom buffer at for this. ROS: As per HPI. [...] for Visi (more content not included)... Normal [facility] 07-13-2024 CNPN Telephone (RADMN) SHAZIA CHOU ([id number]) 1990 F Date Time Provider Department 07/13/24 PATRICIA TATE During your visit today, we recorded the [...] mg by mouth daily at bedtime. - tttqqsssrhux-opa-twlb-F A-vit K (BARIATRIC MULTIVITAMINS) 45 mg iron- [...] Status:Closed by PATRICIA TATE on 07/13/[address] [facility] DBT Breast - left diagnostic for [...] Alexandra Son M.D. Electronically signed on: 07/11/2024 Mine Engineering Supervisor: SERGIO La Date/Time: Jul 11 2024 8:53A Dictated by: ALEXANDRA SON MD This examination was interpreted and the report reviewed and electronically signed by: ALEXANDRA SON MD on Jul 11 2024 9:45AM [facility] DIVISION OF RADIOLOGY * * *Final Report* * * DATE OF EXAM: Jul 11 2024 9:17AM [facility] 0628 - LINDA DIAG W AV LT / PROCEDURE REASON: Abnormal mammogram of left breast * * * * Physician Interpretation * * * * RESULT: [facility] [place] [address] [place] [id number] HISTORY: 33 year old patient presents for [...] obscure small masses. DIVISION OF RADIOLOGY Provider, [facility] Mahnaz [facility] - 07/11/2024 * * *Final Report* * * DATE OF EXAM: Jul 11 2024 9:17AM W 0628 - LINDA DIAG W AV LT / PROCEDURE REASON: Abnormal mammogram of left breast * * * * Physician Interpretation * * * * RESULT: [facility] [address] [place] [id number] HISTORY: 33 year old patient presents for [...] Alexandra Son M.D. Electronically signed on: 07/11/2024 Mine Engineering Supervisor: SERGIO Transcribe Date/Time: Jul 11 2024 8:53A Dictated by: ALEXANDRA SON MD This examination was interpreted and the report reviewed and electronically signed by: ALEXANDRA SON MD on Jul 11 2024 9:45AM EST [facility] Study observation (narrative) [facility] LINDA DIAG W AV LTon 024 LINDA DIAG W AV LT * * *Final Report* * * * * * SEE BOTTOM OF REPORT FOR ADDENDED TEXT * * * DATE OF EXAM: Jul 11 2024 9:17AM W 0628 - LINDA DIAG W AV LT / PROCEDURE REASON: Abnormal mammogram of left breast * * * * Physician Interpretation * * * * [facility]ULT: [facility] [place] [address] [place] [id number] - - - - - - - [...] Alexandra Son M.D. Electronically signed on: 07/11/2024 Mine Engineering Supervisor: SERGIO La Date/Time: Jul 11 2024 8:53A Dictated by: ALEXANDRA SON MD This examination was interpreted and the report reviewed and electronically signed by: ALEXANDRA SON MD on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 [id number] [address] [place] [address] [place] HIV immunoassay testing algorithm interpretation (S/P/Bld) [Interp] Normal [facility] Comment on above: Order Comment: Speci men Type: BLOOD SPECIMEN Ordering Facility: [facility] Address: [address] [place] [address] Result Comment: No e vidence of HIV-1 or HIV-2 infection. Should recent infection be suspected, repeat testing may be considered 2-3 weeks after this draw. [place] Rev. Code 3701.243(E): This information has been [...] diagnoses. Performed By: #### 5 5454-3 #### [facility] CLIA [id number] [address] [place] [address] [place] HbA1c (Bld)on 02-25-2024 Average glucose Estimated from glycated hemoglobin (Bld) [Mass/Vol] 111 mg/dL Normal [facility] Comment on above: Order Comment: Speci men Type: BLOOD SPECIMEN Ordering Facility: [facility] Address: [address] [place] [address] Result Comment: eAG: (Estimated average glucose) is a calculated value from HgbA1c and is in store marketing representative of the average blood glucose level in the last 2-3 month period. Performed By: #### 5 5454-3 #### [facility] CLIA [id number] [address] [place] [address] [place] HbA1c (Bld) [Mass fraction] 5.5 % Normal 4.3-5.6 [facility] Comment on above: Order Comment: Philip birmingham Type: BLOOD SPECIMEN Ordering Facility: [facility] Address: [address] [place] [address] Result Comment: [place] Diabetes Association guidelines indicate that patients with HgbA1c in the range 5.7-6.4% are at increased risk for development of diabetes, and intervention by lifestyle modification may be beneficial. HgbA1c greater or equal to 6.5% is considered diagnostic of diabetes. Performed By: #### 5 5454-3 #### [facility] CLIA [id number] [address] [place] [address] OF [place] Lipid 1996 panelon 4 Cholesterol [Mass/Vol] 142 mg/dL Normal <200 [facility] Comment on above: Order Comment: Philip birmingham Type: BLOOD SPECIMEN Ordering Facility: [facility] Address: [address] [place] [address] Result Comment: <200 mg/dL, Desirable 200-239 mg/dL, Borderline high >239 mg/dL, High Performed By: #### 5 5454-3 #### [facility] CLIA [id number] [address] [place] [address] [place] Cholesterol in HDL [Mass/Vol] 72 mg/dL Normal >39 [facility] Comment on above: Order Comment: Philip birmingham Type: BLOOD SPECIMEN Ordering Facility: [facility] Address: [address] [place] [address] Result Comment: 40-5 9 mg/dL, Acceptable >59 mg/dL, High: Negative risk factor for coronary heart disease <40 mg/dL, Low: Positive risk factor for coronary heart disease Performed By: #### 5 5454-3 #### [facility] CLIA [id number] [address] [place] [address] OF [facility] Cholesterol in LDL [Mass/Vol] 60 mg/dL Normal <100 [facility] Comment on above: Order Comment: Philip birmingham Type: BLOOD SPECIMEN Ordering Facility: [facility] Address: [address] [place] [address] Result Comment: <100 mg/dL, Optimal 100-129 mg/dL, Near optimal/above optimal 130-159 mg/dL, Borderline high 160-189 mg/dL, High >189 mg/dL, Very high Secondary prevention optimal LDL Cholesterol levels are recommended to be < 70 mg/dL Performed By: #### 5 5454-3 #### [facility] CLIA [id number] [address] [place], [place] [address] [place] [address] [place] Cholesterol in LDL/Cholesterol in HDL [Mass ratio] 0.83 {ratio} Normal <2.54 [facility] Comment on above: Order Comment: Philip birmingham Type: BLOOD SPECIMEN Ordering Facility: [facility] Address: [address] [place] [address] Result Comment: Refe rence: 1. National Cholesterol Education Program ATP III Guideline At-A-Glance Quick Desk Reference: National Heart, Lung, and Blood [place]. National Institutes of Health. 2001: NIH Publication No. 01-3305. 2. An International Atherosclerosis Society position paper: global recommendations for the management of dyslipidemia: executive summary, Atherosclerosis. 2014: 232(2):410-413. Performed By: #### 5 5454-3 #### [facility] CLIA [id number] [address] [place] [address] [place] Cholesterol in VLDL [Mass/Vol] 10 mg/dL Normal <30 [facility] Comment on above: Order Comment: Philip birmingham Type: BLOOD SPECIMEN Ordering Facility: [facility] Address: [address] [place] [address] Performed By: #### 5 5454-3 #### [facility] CLIA [id number] [address] [place] [address] [place] Cholesterol non HDL [Mass/Vol] 70 mg/dL Normal <130 [facility] Comment on above: Order Comment: Philip birmingham Type: BLOOD SPECIMEN Ordering Facility: [facility] Address: [address] [place] [address] Result Comment: <130 mg/dL, Optimal 130-159 mg/dL, Near optimal/above optimal 160-189 mg/dL, Borderline high 190-219 mg/dL, High >219 mg/dL, Very high Secondary prevention optimal non HDL Cholesterol levels are recommended to be <100 mg/dL Performed By: #### 5 5454-3 #### [facility] CLIA [id number] [address] [place] [address] [place] Cholesterol.total/Chol esterol in HDL [Mass ratio] 1.97 {ratio} Normal <5.10 [facility] Comment on above: Order Comment: Speci men Type: BLOOD SPECIMEN Ordering Facility: [facility] Address: [address] [place] [address] Performed By: #### 5 5454-3 #### [facility] CLIA [id number] [address] [place] [address] [place] FASTING TIME [address] [facility] Comment on above: Order Comment: Speci men Type: BLOOD SPECIMEN Ordering Facility: [facility] Address: [address] [place] [address] Performed By: #### 5 5454-3 #### [facility] CLIA [id number] [address] [place] [address] [place] Triglyceride [Mass/Vol] 51 mg/dL Normal <150 [facility] Comment on above: Order Comment: Speci men Type: BLOOD SPECIMEN Ordering Facility: [facility] Address: [address] [place] [address] Result Comment: <150 mg/dL, Normal 150-199 mg/dL, Borderline high 200-499 mg/dL, High >499 mg/dL, Very high Performed By: #### 5 5454-3 #### [facility] CLIA [id number] [address] [place] [address] [place] CBC with Diffon 01-13-2024 Abs. Basophil 0.08 k/uL Normal 0.00-0.20 [facility] Comment on above: Performed By: #### F EBC, CDP, FERI #### [address] [address] Technical Producer: Harpal Adair MD Abs.Imm.Granulocyte 0.05 k/uL Normal 0.00-0.30 [facility] Comment on above: Performed By: #### F EBC, CDP, FERI #### [facility] [address] [place] [address] Technical Producer: Harpal Adair MD Abs.Neutrophil (Seg) 7.68 k/uL Normal 1.50-8.10 [facility] Comment on above: Performed By: #### F EBC, CDP, FERI #### [place] [address] Technical Producer: Harpal Adair MD Basophils/100 WBC (Bld) 1 % Normal 0-2 [facility] Comment on above: Performed By: #### F EBC, CDP, FERI #### [place] [address] Technical Producer: Harpal Adair MD Eosinophils (Bld) [#/Vol] 0.25 10*3/uL Normal 0.00-0.44 [facility] Comment on above: Performed By: #### F EBC, CDP, FERI #### [address] [address] Technical Producer: Harpal Adair MD Eosinophils/100 WBC (Bld) 2 % Normal 1-4 [facility] Comment on above: Performed By: #### F EBC, CDP, FERI #### [facility] [address] [place] [address] Technical Producer: Harpal Adair MD Erythrocyte distribution width (RBC) [Ratio] 18.6 % High 11.8-14.4 [facility] Comment on above: Performed By: #### F EBC, CDP, FERI #### [facility] [address] [place] [address] Technical Producer: Harpal Adair MD Hematocrit (Bld) [Volume fraction] 36.7 % Normal 36.3-47.1 [facility] Comment on above: Performed By: #### F EBC, CDP, FERI #### [facility] [address] [place] [address] Technical Producer: Harpal Adair MD Hemoglobin (Bld) [Mass/Vol] 11.3 g/dL Low 11.9-15.1 [facility] Comment on above: Performed By: #### F EBC, CDP, FERI #### [facility] [address] [place] [address] Technical Producer: Harpal Adair MD Immature granulocytes/100 WBC (Bld) 0 % Normal 0 [facility] Comment on above: Performed By: #### F EBC CDP, FERI #### [facility] [address] [place] [address] Technical Producer: Harpal Adair MD Lymphocytes (Bld) [#/Vol] 2.30 10*3/uL Normal 1.10-3.70 [facility] Comment on above: Performed By: #### F EBC CDP, FERI #### [facility] [address] [place] [address] Technical Producer: Harpal Adair MD Lymphocytes/100 WBC (Bld) 21 % Low 24-43 [facility] Comment on above: Performed By: #### F EBC, CDP, FERI #### [facility] [address] [place] [address] Technical Producer: Harpal Adari MD MCH (RBC) [Entitic mass] 28.4 pg Normal 25.2-33.5 [facility] Comment on above: Performed By: #### F EBC CDP, FERI #### [facility] [address] [place] [address] Technical Producer: Harpal Adair MD MCHC (RBC) [Mass/Vol] 30.8 g/dL Normal 28.4-34.8 [facility] Comment on above: Performed By: #### F EBC CDP, FERI #### [facility] [address] [place] [address] Technical Producer: Harpal Adair MD MCV (RBC) [Entitic vol] 92.2 fL Normal 82.6-102.9 [facility] Comment on above: Performed By: #### F EBC CDP, FERI #### [facility] [address] [place] [address] Technical Producer: Harpal Adair MD Monocytes (Bld) [#/Vol] 0.77 10*3/uL Normal 0.10-1.20 [facility] Comment on above: Performed By: #### F EBC CDP, FERI #### [place] [address] Technical Producer: Harpal Adair MD Monocytes/100 WBC (Bld) 7 % Normal 3-12 [facility] Comment on above: Performed By: #### F EBC CDP, FERI #### [facility] [address] [place] [address] Technical Producer: Harpal Adair MD Neutrophil (Seg) 69 % High 36-65 [facility] Comment on above: Performed By: #### F EBC CDP, FERI #### [facility] [address] [place] [address] Technical Producer: Harpal Adair MD NRBC Automated 0.0 per [address] [facility] Comment on above: Performed By: #### F EBC, CDP, FERI #### [facility] [address] [place] [address] Technical Producer: Harpal Adair MD Platelet mean volume (Bld) [Entitic vol] 11.4 fL Normal 8.1-13.5 [facility] Comment on above: Performed By: #### F EBC, CDP, FERI #### [address] [address] Technical Producer: Harpal Adair MD Platelets (Bld) [#/Vol] 387 10*3/uL Normal 138-453 [facility] Comment on above: Performed By: #### F EBC CDP, FERI #### [facility] [address] [place] [address] Technical Producer: Harpal Adair MD RBC (Bld) [#/Vol] 3.98 10*6/uL Normal 3.95-5.11 [facility] Comment on above: Performed By: #### F EBC, CDP, FERI #### [facility] [address] [place] [address] Technical Producer: Harpal Adair MD RBC morphology finding Nom (Bld) ANISOCYTOSIS PRESENT Normal [facility] Comment on above: Performed By: #### F EBC CDP, FERI #### [facility] [address] [place] [address] Technical Producer: Harpal Adair MD WBC (Bld) [#/Vol] 11.1 10*3/uL Normal 3.5-11.3 [facility] Comment on above: Performed By: #### F EBC, CDP, FERI #### [facility] [address] [place] [address] Technical Producer: Harpal Adair MD Ferritinon 01-13-2024 Ferritin [Mass/Vol] 9 ng/mL Low 13-150 [facility] Comment on above: Result Comment: FERRITIN Reference Ranges: Adult Males 20 - 60 years: 30 - 400 ng/mL Adult females 17 - 60 years: 13 - 150 ng/mL Adults greater than 60 years: no established reference range Pediatrics: no established reference range Performed By: #### F VALERIO TO FERI #### [facility] [address] [place] [address] Technical Producer: Harpal Adair MD Iron Binding Cap.on 01-13-20 24 % Fe Saturation 9 % Low 20-55 [facility] Comment on above: Performed By: #### F VALERIO TO, FERI #### [facility] [address] [place] [address] Technical Producer: Harpal Adair MD Iron [Mass/Vol] 37 ug/dL Normal 37-145 [facility] Comment on above: Performed By: #### F VALERIO TO, FERI #### [facility] [address] [place] [address] Technical Producer: Harpal Adair MD Total Fe Binding Cap 390 ug/dL Normal 250-450 [facility] Comment on above: Performed By: #### F VALERIO TO, FERI #### [facility] [address] [place] [address] Technical Producer: Harpal Adair MD Unbound Fe Bind Cap 353 ug/dL High 112-347 [facility] Comment on above: Performed By: #### F VALERIO TO, FERI #### [facility] [address] [place] [address] Technical Producer: MD Ernesto Naylor 01-05-2024 GLORIA Telephone ([facility]) SHAZIA CHOU ([id number]) 1990 F Date Time Provider Department 01/05/24 ELIA BAIRES [facility] During your visit today, we recorded the [...] 60 mg by mouth once daily. - gyryhpzwxuvs-lnk-snnc-F A-vit K (BARIATRIC MULTIVITAMINS) 45 mg iron- [...] Status:Closed by ELIA BAIRES on 01/05/[address] [facility] TOXICOLOGY SCRN W/CONF,URINE on 01-05-2024 Amphetamines Confirm (U) [Mass/Vol] Negative Negative [facility] Comment on above: Cutoff threshold at 1000 ng/mL. Barbiturates Urine Negative Negative [facility] Comment on above: Cutoff threshold at 200 ng/mL. Benzodiazepines Urine Negative Negative [facility] Comment on above: Cutoff threshold at 200 ng/mL. Cannabinoids Screen Ql (U) Sent for confirmation Abnormal Negative [facility] Comment on above: Cutoff threshold at 50 ng/mL. Cocaine Ql (U) Negative Negative [facility] Comment on above: Cutoff threshold at 300 ng/mL. Ethanol (U) [Mass/Vol] mg/dL NINF - 11 mg/dL [facility] Interpretation and review of laboratory results Abnormal [facility] Opiates Screen Ql (U) Negative Negative [facility] Comment on above: Cutoff threshold at 300 ng/mL. oxyCODONE cutoff Screen (U) [Mass/Vol] Negative Negative [facility] Comment on above: Cutoff threshold at 100 ng/mL. Phencyclidine Ql (U) Negative Negative [facility] Comment on above: Cutoff threshold at 25 ng/mL. Immunoassay screen only. Cross reactivity with other substances can occur with immunoassay screening. Detection of any drug(s) in this urine toxicology panel is presumptive only. These tests are for medical purposes only and should not be used for compliance monitoring, legal, or forensic use. [facility] CANNABINOID CONF, URon 01-03 Cannabinoids Confirm (U) [Mass/Vol] 153 ng/mL High <16 [facility] Comment on above: Order Comment: Speci men Type: URINE SPECIMENOrdering Facility: [facility] Address: [address] [place] [address] Result Comment: Tetr ahydrocannabinol carboxylic acid (THCA) is a metabolite of ddtip-6-ayckeywqupgomnnleoin which is the main active component of marijuana. Presence of THCA indicates use of marijuana. Performed By: #### C ANNCONFU ####[facility] [id number] [address] OF [facility] NOTE ([facility]) Normal [facility] Comment on above: Order Comment: Speci men Type: URINE SPECIMENOrdering Facility: [facility] Address: [address] [place] [address] Result Comment: This test is for medical use only. This test was developed and its performance characteristics determined by [facility] [place] ([facility] It has not been cleared or approved by the FDA. [facility] is regulated under CLIA as qualified to perform high-complexity testing. This test is used for clinical purposes. It should not be regarded as investigational or for research. Performed By: #### C ANNCONFU ####[facility] [id number] [address] [place] CNOVon 01-04-2024 CNOV Office Visit (FPMO C) SHAZIA CHOU ([id number]) 1990 F Date Time Provider Department 01/04/24 9:20 AM ELIA BAIRES [facility] During your visit today, we recorded the [...] She says that she is originally from [facility] however came up to here today [...] to establish with a new psychiatrist at [facility] in [place]. She also sees a counselor weekly. Current [...] in 1 (more content not included)... Normal [facility] SPECIMEN VALIDITY, URINEon 0 01-04-2024 CHROMATE,URINE <10 Normal <50 [facility] Comment on above: Order Comment: Speci men Type: URINE SPECIMENOrdering Facility: [facility] Address: [address] [place] [address] Performed By: #### L [id number] ####[facility] [id number] [place] [address] [place] CREATININE,URINE 33.7 mg/dL Normal 20.0-300.0 [facility] Comment on above: Order Comment: Speci men Type: URINE SPECIMENOrdering Facility: [facility] Address: [address] [place] [address] Performed By: #### L [id number] ####[facility] [id number] [place] [address] [place] NITRITES,URINE <50 Normal <500 [facility] Comment on above: Order Comment: Speci men Type: URINE SPECIMENOrdering Facility: [facility] Address: [address] [place] [address] Performed By: #### L [id number] ####[facility] [id number] [place] [address] [place] OXIDANTS,URINE 70 mg/L Normal <200 [facility] Comment on above: Order Comment: Speci men Type: URINE SPECIMENOrdering Facility: [facility] Address: [address] [place] [address] Performed By: #### L [id number] ####[facility] [id number] [place] [address] [place] pH (U) 5.6 [pH] Normal 4.5-8.0 [facility] Comment on above: Order Comment: Speci men Type: URINE SPECIMENOrdering Facility: [facility] Address: [address] [place] [address] Performed By: #### L [id number] ####[facility] [id number] [place] [address] [place] SPEC GRAVITY,UR 1.019 Normal 1.003-1.035 [facility] Comment on above: Order Comment: Speci men Type: URINE SPECIMENOrdering Facility: [facility] Address: [address] [place] [address] Performed By: #### L [id number] ####[facility] [id number] [place] [address] [place] SPECIMEN VALIDITY QUALITY Specimen quality results within acceptable limits Normal [facility] Comment on above: Order Comment: Speci men Type: URINE SPECIMENOrdering Facility: [facility] Address: [address] [place] [address] Performed By: #### L [id number] ####[facility] [id number] [place] [address] [place] TOXICOLOGY SCRN W/CONF,URINE on 01-04-2024 Amphetamines Confirm (U) [Mass/Vol] Negative Normal Negative [facility] Comment on above: Order Comment: Speci men Type: URINE SPECIMENOrdering Facility: [facility] Address: [address] [place] [address] Result Comment: Cuto ff threshold at 1000 ng/mL. Performed By: #### U [id number] ####[facility] [id number] [place] [address] [place] BARBITURATES, URINE Negative Normal Negative [facility] [facility] Comment on above: Order Comment: Speci men Type: URINE SPECIMENOrdering Facility: [facility] Address: [address] [place] [address] Result Comment: Cuto ff threshold at 200 ng/mL. Performed By: #### U TOXRF ####[facility] [id number] [place] [address] [place] BENZODIAZEPINES, UR Negative Normal Negative [facility] Comment on above: Order Comment: Speci men Type: URINE SPECIMENOrdering Facility: [facility] Address: [address] [place] [address] Result Comment: Cuto ff threshold at 200 ng/mL. Performed By: #### U TOXRF ####[facility] [id number] [place] [address] [place] Cannabinoids Screen Ql (U) Sent for confirmation Abnormal Negative [facility] Comment on above: Order Comment: Speci men Type: URINE SPECIMENOrdering Facility: [facility] Address: [address] [place] [address] Result Comment: Cuto ff threshold at 50 ng/mL. Performed By: #### U TOXRF ####[facility] [id number] [place] [address] [place] Cocaine Ql (U) Negative Normal Negative [facility] Comment on above: Order Comment: Speci men Type: URINE SPECIMENOrdering Facility: [facility] Address: [address] [place] [address] Result Comment: Cuto ff threshold at 300 ng/mL. Performed By: #### U TOXRF ####[facility] [id number] [place] [address] [place] Ethanol (U) [Mass/Vol] <11 Normal <11 [facility] Comment on above: Order Comment: Speci men Type: URINE SPECIMENOrdering Facility: [facility] Address: [address] [place] [address] Performed By: #### U TOXRF ####[facility] [id number] [address] [place] Opiates Screen Ql (U) Negative Normal Negative [facility] Comment on above: Order Comment: Speci men Type: URINE SPECIMENOrdering Facility: [facility] Address: [address] [place] [address] Result Comment: Cuto ff threshold at 300 ng/mL. Performed By: #### U TOXRF ####[facility] [id number] [address] [place] oxyCODONE cutoff Screen (U) [Mass/Vol] Negative Normal Negative [facility] Comment on above: Order Comment: Speci men Type: URINE SPECIMENOrdering Facility: [facility] Address: [address] [place] [address] Result Comment: Cuto ff threshold at 100 ng/mL. Performed By: #### U TOXRF ####[facility] [id number] [address] Phencyclidine Ql (U) Negative Normal Negative [facility] Comment on above: Order Comment: Speci men Type: URINE SPECIMENOrdering Facility: [facility] Address: [address] [place] [address] Result Comment: Cuto ff threshold at 25 ng/mL. Performed By: #### U TOXRF ####[facility] [id number] [place] [address] [place] ED Noteon 2023 ED Note [id number]#1.00T IFF Normal [facility] Activated partial thrombopla stin time (aPTT) in platelet poor plasma by coagulation aOrdered By: Marii Christiansen on 12-10-2023 aPTT Coag (PPP) [Time] 28.8 s 25.1-36.5 [facility] Comment on above: A hematocrit value g reater than 55% may lead to inaccurate results in coagulation testing. Patients having hematocrit values >55% require a special collection tube for coagulation studies. Please contact the laboratory at [phone] for redraw instructions. Basophils Auto (Bld) [#/Vol] Ordered By: Marii Christiansen on 12-10-2023 Basophils (Bld) [#/Vol] 0.1 10*3/uL 0.0-0.2 [facility] Basophils/100 WBC Auto (Bld) Ordered By: Marii Christiansen on 12-10-2023 Basophils/100 WBC (Bld) 1.0 % . [facility] Calcium [Mass/volume] in Ser um or PlasmaOrdered By: Marii Christiansen on 12-10-2023 Calcium [Mass/Vol] 9.3 mg/dL 8.6-10.3 [facility] Carbon dioxide, total [Moles /volume] in Serum or PlasmaOrdered By: Marii Christiansen on 12-10-2023 CO2 [Moles/Vol] 26.2 mmol/L 21.0-31.0 [facility] Chloride [Moles/volume] in S tushar or PlasmaOrdered By: Marii Christiansen on 12-10-2023 Chloride [Moles/Vol] 108 mmol/L 98-107 [facility] Choriogonadotropin.beta subu nit [Units/volume] in Serum or PlasmaOrdered By: Marii Christiansen on 12-10-2023 HCG.beta subunit Qn Negative [facility] Creatine kinase [Enzymatic a ctivity/volume] in Serum or PlasmaOrdered By: Marii Christiansen on 12-10-2023 CK [Catalytic activity/Vol] 90 U/L 30-223 [facility] Creatinine [Mass/volume] in Serum or PlasmaOrdered By: Marii Christiansen on 12-10-2023 Creatinine [Mass/Vol] 0.63 mg/dL 0.60-1.20 [facility] Eosinophils Auto (Bld) [#/Vo l]Ordered By: Marii Christiansen on 12-10-2023 Eosinophils (Bld) [#/Vol] 0.1 10*3/uL 0.0-0.45 [facility] Eosinophils/100 WBC Auto (Bl d)Ordered By: Marii Christiansen on 12-10-2023 Eosinophils/100 WBC (Bld) 1.7 % . [facility] Erythrocyte distribution wid th Auto (RBC) [Ratio]Ordered By: Marii Christiansen on 12-10-2023 Erythrocyte distribution width (RBC) [Ratio] 18.2 % 11.9-15.3 [facility] Glucose [Mass/volume] in Ser um or PlasmaOrdered By: Marii Christiansen on 12-10-2023 Glucose [Mass/Vol] 84 mg/dL 70-100 [facility] Comment on above: ADA recommended refe rence rangeRandom Glucose Reference Range is dependent on time and content of last meal. Glucose of more than 200 mg/dL in a nonstressed, ambulatory subject supports the diagnosis of Diabetes Mellitus. Hematocrit Auto (Bld) [Volum e fraction]Ordered By: Marii Christiansen on 12-10-2023 Hematocrit (Bld) [Volume fraction] 34.4 % 34.0-46.4 [facility] Hemoglobin [Mass/volume] in BloodOrdered By: Marii Christiansen on 12-10-2023 Hemoglobin (Bld) [Mass/Vol] 11.2 g/dL 11.8-15.4 [facility] INR in Platelet poor plasma by Coagulation assayOrdered By: Marii Christiansen on 12-10-2023 INR Coag (PPP) [Relative time] 1.0 {INR} [facility] Comment on above: INR Therapeutic Rang [...] RBC Auto (Bld) [#/Vol] 7.1 10*3/uL 3.8-11.6 [facility] Lymphocytes Auto (Bld) [#/Vo l]Ordered By: Marii Christiansen on 12-10-2023 Lymphocytes (Bld) [#/Vol] 1.6 10*3/uL 1.00-4.8 [facility] Lymphocytes/100 WBC Auto (Bl d)Ordered By: Marii Christiansen on 12-10-2023 Lymphocytes/100 WBC (Bld) 21.9 % . [facility] MCH Auto (RBC) [Entitic mass ]Ordered By: Marii Christiansen on 12-10-2023 MCH (RBC) [Entitic mass] 28.8 pg 24.7-34.3 [facility] MCHC Auto (RBC) [Mass/Vol]Or dered By: Marii Christiansen on 12-10-2023 MCHC (RBC) [Mass/Vol] 32.5 g/dL 32.0-35.0 [facility] MCV Auto (RBC) [Entitic vol] Ordered By: Marii Christiansen on 12-10-2023 MCV (RBC) [Entitic vol] 88.7 fL 80-100 [facility] Magnesium [Mass/volume] in S tushar or PlasmaOrdered By: Marii Christiansen on 12-10-2023 Magnesium [Mass/Vol] 1.9 mg/dL 1.9-2.7 [facility] Monocyte distribution width [Entitic volume] in Blood by AutomatedOrdered By: Marii Christiansen on 12-10-2023 Monocyte distribution width Auto (Bld) [Entitic vol] 16.94 % 0.00-20.00 [facility] Monocytes Auto (Bld) [#/Vol] Ordered By: Marii Christiansen on 12-10-2023 Monocytes (Bld) [#/Vol] 0.5 10*3/uL 0.0-0.8 [facility] Monocytes/100 WBC Auto (Bld) Ordered By: Marii Christiansen on 12-10-2023 Monocytes/100 WBC (Bld) 6.4 % . [facility] Natriuretic peptide B [Mass/ Vol]Ordered By: Marii Christiansen on 12-10-2023 Natriuretic peptide B (Bld) [Mass/Vol] 12.0 pg/mL 5-100 [facility] Neutrophils Auto (Bld) [#/Vo l]Ordered By: Marii Christiansen on 12-10-2023 Neutrophils (Bld) [#/Vol] 4.9 10*3/uL 1.8-7.7 [facility] Neutrophils/100 WBC Auto (Bl d)Ordered By: Marii Christiansen on 12-10-2023 Neutrophils/100 WBC (Bld) 69.0 % . [facility] No Panel InformationOrdered By: Marii Christiansen on 12-10-2023 Estimated GFR (CKD-EPI) > 60.0 mL/Min [facility] Creatinine Clearance (Chem 144.76 [facility] Nucleated erythrocytes [Pres ence] in Blood by Automated countOrdered By: Marii Christiansen on 12-10-2023 Nucleated RBC Auto Ql (Bld) 0.1 /100{WBC} 0-0.5 [facility] Phosphate [Mass/volume] in S tushar or PlasmaOrdered By: Marii Christiansen on 12-10-2023 Phosphate [Mass/Vol] 3.7 mg/dL 2.5-4.5 [facility] Platelet mean volume Auto (B ld) [Entitic vol]Ordered By: Marii Christiansen on 12-10-2023 Platelet mean volume (Bld) [Entitic vol] 9.2 fL 6.3-10.7 [facility] Platelets Auto (Bld) [#/Vol] Ordered By: Marii Christiansen on 12-10-2023 Platelets (Bld) [#/Vol] 331 10*3/uL 150-450 [facility] Potassium [Moles/volume] in Serum or PlasmaOrdered By: Marii Christiansen on 12-10-2023 Potassium [Moles/Vol] 4.0 mmol/L 3.5-5.1 [facility] Prothrombin time (PT)Ordered By: Marii Chritsiansen on 12-10-2023 PT Coag (PPP) [Time] 11.3 s 9.0-12.9 [facility] Comment on above: A hematocrit value g reater than 55% may lead to inaccurate results in coagulation testing. Patients having hematocrit values >55% require a special collection tube for coagulation studies. Please contact the laboratory at [phone] for redraw instructions. RBC Auto (Bld) [#/Vol]Ordere d By: Marii Christiansen on 12-10-2023 RBC (Bld) [#/Vol] 3.88 10*6/uL 3.60-5.00 [facility] Serum or plasma anion gap de terminationOrdered By: Marii Christiansen on 12-10-2023 Anion gap [Moles/Vol] 9.8 mmol/L 6.0-15.0 [facility] Sodium [Moles/volume] in Ser um or PlasmaOrdered By: Marii Christiansen on 12-10-2023 Sodium [Moles/Vol] 140 mmol/L 136-145 [facility] Thyrotropin [Units/volume] i n Serum or PlasmaOrdered By: Marii Christiansen on 12-10-2023 TSH Qn 0.61 m[IU]/L 0.45-5.33 [facility] Thyroxine (T4) free [Mass/vo lume] in Serum or PlasmaOrdered By: Marii Christiansen on 12-10-2023 Free T4 [Mass/Vol] 0.82 ng/dL 0.61-1.12 [facility] Troponin I.cardiac [Mass/vol ume] in Serum or Plasma by Detection limit <= 0.01 ng/Ordered By: Marii Christiansen on 12-10-2023 Troponin I.cardiac DL <= 0.01 ng/mL [Mass/Vol] < 2.3 pg/mL 0.0-15.0 [facility] Urea nitrogen [Mass/volume] in Serum or PlasmaOrdered By: Marii Christiansen on 12-10-2023 Urea nitrogen [Mass/Vol] 14 mg/dL 7-25 [facility] WBC Auto (Bld) [#/Vol]Ordere d By: Marii Christiansen on 12-10-2023 WBC (Bld) [#/Vol] 7.1 10*3/uL 3.8-11.6 [facility] Consent for Treatmenton 11-13 Consent for Treatment [id number]#1.00T IFF Normal [facility] MA Mamm Diag w/CAD if perf [...] very important to your health. The current [employer] and National Comprehensive Cancer [...] Category 1-Negative Recommendation: Normal interval follow-up [facility] US Breast Unilateral Lt Comp leteon 12-09-2023 US Breast Unilateral Lt Complete Exam Date/Time: 12/09/2023 10:07 EDT Reason for Exam: N63.21 Report PLEASE REFER TO THE MAMMOGRAM REPORT. Ordering Provider: Jennie Durand FINAL REPORT Dictated: 12/09/2023 4:28 pm Mychal Cabezas M.D. Signed (Electronic Signature): 12/09/2023 4:28 pm Signed by: Mychal Cabezas M.D. Transcribed by: MARCO Technologist: KYLE Walters [facility] Physician Orderon 12-08-2023 Physician Order [id number]#1.[address] [facility] CT ABDOMEN PELVIS W IV CONTR [...] Jacob Dillon DO 10/25/23 Final result Normal [facility] CBC panel Auto (Bld)on 08-31 Erythrocyte distribution width (RBC) [Ratio] 14.7 % Normal 11.5-15.0 [facility] Comment on above: Order Comment: Speci men Type: BLOOD SPECIMEN [facility] Address: [address] [place] [address] Performed By: #### 5 8410-2 #### [facility] CLIA [id number] [address] [place] [address] [place] Hematocrit (Bld) [Volume fraction] 36.9 % Normal 36.0-46.0 [facility] Comment on above: Order Comment: Speci men Type: BLOOD SPECIMEN [facility]ing [facility]: [facility] Address: [address] [place] [address] Performed By: #### 5 8410-2 #### [facility] CLIA [id number] [address] [place] [address] [place] Hemoglobin (Bld) [Mass/Vol] 11.7 g/dL Normal 11.5-15.5 [facility] Comment on above: Order Comment: Speci men Type: BLOOD SPECIMEN Ordering Facility: [facility] Address: [address] [place] [address] Performed By: #### 5 8410-2 #### [facility] CLIA [id number] [address] [place] [address] [place] MCH (RBC) [Entitic mass] 29.8 pg Normal 26.0-34.0 [facility] Comment on above: Order Comment: Speci men Type: BLOOD SPECIMEN [facility]ing Facility: [facility] Address: [address] [place] [address] Performed By: #### 5 8410-2 #### [facility] CLIA [id number] [address] [place] [address] [place] MCHC (RBC) [Mass/Vol] 31.7 g/dL Normal 30.5-36.0 [facility] Comment on above: Order Comment: Speci men Type: BLOOD SPECIMEN Ordering Facility: [facility] Address: [address] [place] [address] Performed By: #### 5 8410-2 #### [facility] CLIA [id number] [address] [place] [address] [place] MCV (RBC) [Entitic vol] 93.9 fL Normal 80.0-100.0 [facility] Comment on above: Order Comment: Speci men Type: BLOOD SPECIMEN [facility]ing Facility: [facility] Address: [address] [place] [address] Performed By: #### 5 8410-2 #### [facility] CLIA [id number] [address] [place] [address] [place] Nucleated RBC (Bld) [#/Vol] 10*3/uL Normal <0.01 [facility] Comment on above: Order Comment: Speci men Type: BLOOD SPECIMEN [facility]ing [facility]: [facility] Address: [address] [place] [address] Performed By: #### 5 8410-2 #### [facility] CLIA [id number] [address] [place] [address] [place] Platelet mean volume (Bld) [Entitic vol] 11.1 fL Normal 9.0-12.7 [facility] Comment on above: Order Comment: Speci men Type: BLOOD SPECIMEN Ordering Facility: [facility] Address: [address] [place] [address] Performed By: #### 5 8410-2 #### [facility] CLIA [id number] [address] [place] [address] [place] Platelets (Bld) [#/Vol] 297 10*3/uL Normal 150-400 [facility] Comment on above: Order Comment: Speci men Type: BLOOD SPECIMEN Ordering Facility: [facility] Address: [address] [place] [address] Performed By: #### 5 8410-2 #### [facility] CLIA [id number] [address] [place] [address] [place] RBC (Bld) [#/Vol] 3.93 10*6/uL Normal 3.90-5.20 [facility] Comment on above: Order Comment: Speci men Type: BLOOD SPECIMEN Ordering Facility: [facility] Address: [address] [place] [address] Performed By: #### 5 8410-2 #### [facility] CLIA [id number] [address] [place] [address] [place] WBC (Bld) [#/Vol] 6.82 10*3/uL Normal 3.70-11.00 [facility] Comment on above: Order Comment: Speci men Type: BLOOD SPECIMEN Ordering Facility: [facility] Address: [address] [place] [address] Performed By: #### 5 8410-2 #### [facility] CLIA [id number] [address] [place] [address] [place] Comprehensive metabolic 2000 panelon 08-31-2023 Albumin [Mass/Vol] 4.4 g/dL Normal 3.9-4.9 [facility] Comment on above: Order Comment: Speci men Type: BLOOD SPECIMEN Ordering Facility: [facility] Address: [address] [place] [address] Performed By: #### L IPNF, 87357-0 #### [facility] CLIA [id number] [address] [place] [address] [place] ALP [Catalytic activity/Vol] 75 U/L Normal 34-123 [facility] Comment on above: Order Comment: Speci men Type: BLOOD SPECIMEN Ordering Facility: [facility] Address: [address] [place] [address] Performed By: #### L IPNF, 41769-0 #### [facility] CLIA [id number] [address] [place] [address] [place] ALT [Catalytic activity/Vol] 16 U/L Normal 7-38 [facility] Comment on above: Order Comment: Speci men Type: BLOOD SPECIMEN Ordering Facility: [facility] Address: [address] [place] [address] Performed By: #### L IPNF, #### [facility] CLIA [id number] [place] [address] [place] Anion gap [Moles/Vol] 11 mmol/L Normal 9-18 [facility] Comment on above: Order Comment: Speci men Type: BLOOD SPECIMEN Ordering Facility: [facility] Address: [address] [place] [address] Performed By: #### L IPNF, #### [facility] CLIA [id number] [address] [place] [address] [place] AST [Catalytic activity/Vol] 21 U/L Normal 13-35 [facility] Comment on above: Order Comment: Speci men Type: BLOOD SPECIMEN Ordering Facility: [facility] Address: [address] [place] [address] Performed By: #### L IPNF, #### [facility] CLIA [id number] [address] [place] [address] [place] Bilirubin [Mass/Vol] 0.2 mg/dL Normal 0.2-1.3 [facility] Comment on above: Order Comment: Speci men Type: BLOOD SPECIMEN Ordering Facility: [facility] Address: [address] [place] [address] Performed By: #### L IPNF, #### [facility] CLIA [id number] [address] [place] [address] [place] Calcium [Mass/Vol] 9.7 mg/dL Normal 8.5-10.2 [facility] Comment on above: Order Comment: Speci men Type: BLOOD SPECIMEN Ordering Facility: [facility] Address: [address] [place] [address] Performed By: #### L IPNF, #### [facility] CLIA [id number] [address] [place] [address] [place] Chloride [Moles/Vol] 106 mmol/L High 97-105 [facility] Comment on above: Order Comment: Speci men Type: BLOOD SPECIMEN Ordering Facility: [facility] Address: [address] [place] [address] Performed By: #### L IPNF, #### [facility] CLIA [id number] [place] [address] [place] CO2 [Moles/Vol] 25 mmol/L Normal 22-30 [facility] Comment on above: Order Comment: Speci men Type: BLOOD SPECIMEN Ordering Facility: [facility] Address: [address] [place] [address] Performed By: #### L IPNF, #### [facility] CLIA [id number] [address] [place] [address] [place] Creatinine [Mass/Vol] 0.55 mg/dL Low 0.58-0.96 [facility] Comment on above: Order Comment: Speci men Type: BLOOD SPECIMEN Ordering Facility: [facility] Address: [address] [place] [address] Performed By: #### L IPNF, #### [facility] CLIA [id number] [address] [place] [address] [place] Creatinine and Glomerular filtration rate.predicted panel (S/P/Bld) 124 mL/min/1.73m??? Normal >=60 [facility] Comment on above: Order Comment: Speci men Type: BLOOD SPECIMEN Ordering Facility: [facility] Address: [address] [place] [address] Result Comment: Brenda mated Glomerular Filtration Rate [...] actual GFR. Performed By: #### L IPNF, 04663-4 #### [facility] CLIA [id number] [address] [place] [address] [place] Glucose [Mass/Vol] 93 mg/dL Normal 74-99 [facility] Comment on above: Order Comment: Philip [place] Type: BLOOD SPECIMEN Ordering Facility: [facility] Address: [address] [place] [address] Result Comment: The [place] [employer] (ADA) provides guidance for cutoff [...] Standards of Medical Care in Diabetes 2016, [place] [employer]. Diabetes Care. 2016.39(Suppl 1). Performed By: #### L IPMARTHA, 12076-0 #### [facility] CLIA [id number] [address] [place] [address] [place] Potassium [Moles/Vol] 4.7 mmol/L Normal 3.7-5.1 [facility] Comment on above: Order Comment: Philip [place] Type: BLOOD SPECIMEN Ordering Facility: [facility] Address: [address] [place] [address] Performed By: #### L IPNF, 29710-2 #### [facility] CLIA [id number] [address] [place] [address] [place] Protein [Mass/Vol] 7.3 g/dL Normal 6.3-8.0 [facility] Comment on above: Order Comment: Philip [place] Type: BLOOD SPECIMEN Ordering Facility: [facility] Address: [address] [place] [address] Performed By: #### L IPNF, 77139-0 #### [facility] CLIA [id number] [address] [place] [address] [place] Sodium [Moles/Vol] 142 mmol/L Normal 136-144 [facility] Comment on above: Order Comment: Speci men Type: BLOOD SPECIMEN Ordering Facility: [facility] Address: [address] [place] [address] Performed By: #### L IPNF, 26217-1 #### [facility] CLIA [id number] [address] [place] [address] [place] Urea nitrogen [Mass/Vol] 9 mg/dL Normal 7-21 [facility] Comment on above: Order Comment: Speci men Type: BLOOD SPECIMEN Ordering Facility: [facility] Address: [address] [place] [address] Performed By: #### L IPNF, 11431-7 #### [facility] CLIA [id number] [address] [place] [address] [place] LIPID PANEL, NONFASTINGon Cholesterol [Mass/Vol] 154 mg/dL Normal <200 [facility] Comment on above: Order Comment: Speci men Type: BLOOD SPECIMEN Ordering Facility: [facility] Address: [address] [place] [address] Result Comment: <200 mg/dL, Desirable 200-239 mg/dL, Borderline high >239 mg/dL, High Performed By: #### L IPNF, 71223-8 #### [facility] CLIA [id number] [address] [place] [address] [place] HDL CHOLESTEROL, NF 69 mg/dL Normal >39 [facility] Comment on above: Order Comment: Speci men Type: BLOOD SPECIMEN Ordering Facility: [facility] Address: [address] [place] [address] Result Comment: 40-5 9 mg/dL, Acceptable >59 mg/dL, High: Negative risk factor for coronary heart disease <40 mg/dL, Low: Positive risk factor for coronary heart disease Performed By: #### L IPNF, 93148-9 #### [facility] CLIA [id number] [address] [place] [address] [place] LDL CHOLESTEROL, NF 66 mg/dL Normal <100 [facility] Comment on above: Order Comment: Speci men Type: BLOOD SPECIMEN Ordering Facility: [facility] Address: [address] [place] [address] Result Comment: <100 mg/dL, Optimal 100-129 mg/dL, Near optimal/above optimal 130-159 mg/dL, Borderline high 160-189 mg/dL, High >189 mg/dL, Very high Secondary prevention optimal LDL Cholesterol levels are recommended to be < 70 mg/dL Performed By: #### L IPMARTHA, 01143-9 #### [facility] CLIA [id number] OF [facility] LDL/HDL RATIO, NF 0.96 mg/dL Normal <2.54 [facility] Comment on above: Order Comment: Philip birmingham Type: BLOOD SPECIMEN Ordering Facility: [facility] Address: [address] [place] [address] Result Comment: Eric kasper: 1. National Cholesterol Education Program ATP III Guideline At-A-Glance Quick Desk Reference: National Heart, Lung, and Blood Keiser. National Institutes of Health. 2001: NIH Publication No. 01-3305. 2. An International Atherosclerosis Society position paper: global recommendations for the management of dyslipidemia: executive summary, Atherosclerosis. 2014: 232(2):410-413. Performed By: #### L IPMARTHA, 28915-2 #### [facility] CLIA [id number] [address] [place] [address] NON HDL CHOL, NF 85 mg/dL Normal <130 [facility] Comment on above: Order Comment: Philip birmingham Type: BLOOD SPECIMEN Ordering Facility: [facility] Address: [address] [place] [address] Result Comment: <130 mg/dL, Optimal 130-159 mg/dL, Near optimal/above optimal 160-189 mg/dL, Borderline high 190-219 mg/dL, High >219 mg/dL, Very high Secondary prevention optimal non HDL Cholesterol levels are recommended to be <100 mg/dL Performed By: #### L IPMARTHA, 45201-5 #### [facility] CLIA [id number] T CHOL/HDL RATIO NF 2.23 mg/dL Normal <5.10 [facility] Comment on above: Order Comment: Philip valencia Type: BLOOD SPECIMEN Ordering Facility: [facility] Address: [address] [place] [address] Performed By: #### L IPNF, 81437-5 #### [facility] CLIA [id number] [address] [place] [address] [place] TRIGLYCERIDES, NF 96 mg/dL Normal <150 [facility] Comment on above: Order Comment: Speci men Type: BLOOD SPECIMEN Ordering Facility: [facility] Address: [address] [place] [address] Result Comment: <150 mg/dL, Normal 150-199 mg/dL, Borderline high 200-499 mg/dL, High >499 mg/dL, Very high Performed By: #### L IPNF, 79134-5 #### [facility] CLIA [id number] [address] [place] [address] [place] VLDL CHOLESTEROL, NF 19 mg/dL Normal <30 [facility] Comment on above: Order Comment: Spec men Type: BLOOD SPECIMEN Ordering Facility: [facility] Address: [address] [place] [address] Performed By: #### L IPNF, 78248-1 #### [facility] CLIA [id number] [address] [place] [address] [place] PHOSPHATIDYLETHANOL (PETH)on 08-31-2023 EER PETH See Note Normal [facility] Comment on above: Order Comment: Speci men Type: BLOOD SPECIMEN Ordering Facility: [facility] Address: [address] [place] [address] Result Comment: Auth orized individuals can access the [employer] Enhanced Report using the following link: [email or web address] Performed By: #### P ETH #### [facility] CLIA [id number] [address] [place] [address] PETH 16:0/18.2 (PLPETH) 244 ng/mL Normal [facility] Comment on above: Order Comment: Speci men Type: BLOOD SPECIMEN Ordering Facility: [facility] Address: [address] [place] [address] Result Comment: Refe rence ranges are not well established. Performed By: #### P ETH #### [facility] CLIA [id number] [address] [place] [address] PETH 16:0/18:1 (POPETH) 169 ng/mL Normal [facility] Comment on above: Order Comment: Speci men Type: BLOOD SPECIMEN Ordering Facility: [facility] Address: [address] [place] [address] Result Comment: PEth 16:0/18:1 (POPEth) Less than 10 ng/mL............Not detected Less than 20 ng/mL............Abstinence or light alcohol consumption 20 - 200 ng/mL................Moderate alcohol consumption Greater than 200 ng/mL........Heavy alcohol consumption or chronic alcohol use (Reference: Sophie Gonzalez and Crystal Helm 2018 J. Forensic Sci) Performed By: #### P ETH #### [facility] [id number] [address] [place] [address] PETH INTERPRETATION See Note Normal [facility] Comment on above: Order Comment: Speci men Type: BLOOD SPECIMEN Ordering Facility: [facility] Address: [address] [place] [address] Result Comment: Phos phatidylethanol (PEth) is a [...] developed and its performance characteristics determined by [employer]. It has not been cleared or approved by the U.S. Food and Drug Administration. This test was performed in a CLIA-certified laboratory and is intended for clinical purposes. Performed By: [facility] [address] [place] [address] Rn Internship: Osmar Salcido MD, PhD CLIA Number: [id number] Performed By: #### P ETH #### [facility] CLIA [id number] [address] [place] [address] MRI ABDOMEN W WO CONTRAST MR CPon [...] Troy Bond MD 08/20/23 Final result Normal [facility] Vitamin Aon 08-16-2023 Interpretation Normal Normal [facility] Comment on above: Result Comment: (NOT E) This test was developed and its performance characteristics determined by [employer]. It has not been cleared or approved by the US Food and Drug Administration. This test was performed in a CLIA certified laboratory and is intended for clinical purposes. Performed By: [facility] [address] [place] [address] Rn Internship: Osmar Salcido MD, PhD CLIA Number: [id number] Performed By: #### P THNCA, FEBC, FERI, GLYHGB, VD25 #### [address] [address] Technical Producer: Harpal Adair MD #### ARIAN OLIVOTB1, AZN #### [facility] [address] [place] [address] Technical Producer: Patricio Zuñiga MD #### CP, MG, CDP #### [facility] [address] [place] [address] Technical Producer: Hilton Armenta MD Retinol (Vitamin A) 0.60 mg/L Normal 0.30-1.20 [facility] Comment on above: Performed By: #### P THNCA, FEBC, FERI, GLYHGB, VD25 #### [address] [id number] Technical Producer: Harpal Adair MD #### TYREE OLIVO1, AZN #### [facility] [address] [place], [place] [id number] Technical Producer: Patriico Zuñiga MD #### ANGEL, MG, CDP #### [facility] [address] [place] [address] Technical Producer: Hilton Armenta MD Retinyl Palmitate <0.02 Normal 0.00-0.10 [facility] Comment on above: Performed By: #### P THNCA, FEBC, FERI, GLYHGB, VD25 #### [facility] [address] [place] [address] Technical Producer: Harpal Adair MD #### PALLAVI, ARIANTB1, AZN #### [facility] [address] [place], [place] [id number] Technical Producer: Patricio Zuñiga MD #### ANGEL, MG, CDP #### [facility] [address] [place] [address] Technical Producer: Hilton Armenta MD Alanine aminotransferase [En zymatic activity/volume] in Serum or PlasmaOrdered By: Yoli Norris on 08-15-2023 ALT [Catalytic activity/Vol] 18 U/L 7-52 [facility] Albumin [Mass/volume] in Ser um or Plasma by Bromocresol green (BCG) dye binding methoOrdered By: Yoli Norris on 08-15-2023 Albumin BCG dye [Mass/Vol] 4.6 g/dL 3.5-5.7 [facility] Alkaline phosphatase [Enzyma tic activity/volume] in Serum or PlasmaOrdered By: Yoli Norris on 08-15-2023 ALP [Catalytic activity/Vol] 77 U/L 34-104 [facility] Aspartate aminotransferase [ Enzymatic activity/volume] in Serum or PlasmaOrdered By: Yoli Norris on 08-15-2023 AST [Catalytic activity/Vol] 18 U/L 13-39 [facility] Basophils Auto (Bld) [#/Vol] Ordered By: Yoli Norris on 08-15-2023 Basophils (Bld) [#/Vol] 0.1 10*3/uL 0.0-0.2 [facility] Basophils/100 WBC Auto (Bld) Ordered By: Yoli Norris on 08-15-2023 Basophils/100 WBC (Bld) 0.5 % . [facility] Bilirubin Test strip Ql (U)O rdered By: Yoli Norris on 08-15-2023 Bilirubin Ql (U) Negative Negative [facility] Bilirubin.direct [Mass/volum e] in Serum or PlasmaOrdered By: Yoli Norris on 08-15-2023 Bilirubin.direct [Mass/Vol] 0.00 mg/dL 0.03-0.18 [facility] Comment on above: If the DBIL is less than 0.1, IBIL is not able to becalculated. Bilirubin.total [Mass/volume ] in Serum or PlasmaOrdered By: Yoli Norris on 08-15-2023 Bilirubin [Mass/Vol] 0.3 mg/dL 0.3-1.0 [facility] Calcium [Mass/volume] in Ser um or PlasmaOrdered By: Yoli Norris on 08-15-2023 Calcium [Mass/Vol] 9.8 mg/dL 8.6-10.3 [facility] Carbon dioxide, total [Moles /volume] in Serum or PlasmaOrdered By: Yloi Norris on 08-15-2023 CO2 [Moles/Vol] 21.8 mmol/L 21.0-31.0 [facility] Chloride [Moles/volume] in S tushar or PlasmaOrdered By: Yoli Norris on 08-15-2023 Chloride [Moles/Vol] 109 mmol/L 98-107 [facility] Color Auto (U)Ordered By: Maribel Norris on 08-15-2023 Color (U) Yellow Yellow [facility] Creatinine [Mass/volume] in Serum or PlasmaOrdered By: Yoli Norris on 08-15-2023 Creatinine [Mass/Vol] 0.76 mg/dL 0.60-1.20 [facility] Eosinophils Auto (Bld) [#/Vo l]Ordered By: Yoli Norris on 08-15-2023 Eosinophils (Bld) [#/Vol] 0.2 10*3/uL 0.0-0.45 [facility] Eosinophils/100 WBC Auto (Bl d)Ordered By: Yoli Norris on 08-15-2023 Eosinophils/100 WBC (Bld) 2.1 % . [facility] Erythrocyte distribution wid th Auto (RBC) [Ratio]Ordered By: Yoli Norris on 08-15-2023 Erythrocyte distribution width (RBC) [Ratio] 15.1 % 11.9-15.3 [facility] Globulin Calc (S) [Mass/Vol] Ordered By: Yoli Norris on 08-15-2023 Globulin (S) [Mass/Vol] 3.2 g/dL [facility] Glucose [Mass/volume] in Ser um or PlasmaOrdered By: Yoli Norris on 08-15-2023 Glucose [Mass/Vol] 85 mg/dL 70-100 [facility] Comment on above: ADA recommended refe rence rangeRandom Glucose Reference Range is dependent on time and content of last meal. Glucose of more than 200 mg/dL in a nonstressed, ambulatory subject supports the diagnosis of Diabetes Mellitus. HCG ( test) IA.rapi d Ql (U)Ordered By: Yoli Norris on 08-15-2023 HCG ( test) Ql (U) Negative [facility] Hematocrit Auto (Bld) [Volum e fraction]Ordered By: Yoli Norris on 08-15-2023 Hematocrit (Bld) [Volume fraction] 37.2 % 34.0-46.4 [facility] Hemoglobin [Mass/volume] in BloodOrdered By: Yoli Norris on 08-15-2023 Hemoglobin (Bld) [Mass/Vol] 12.2 g/dL 11.8-15.4 [facility] Ketones Auto test strip (U) [Mass/Vol]Ordered By: Yoli Norris on 08-15-2023 Ketones (U) [Mass/Vol] Negative Negative [facility] Leukocytes [#/volume] correc caitlin for nucleated erythrocytes in Blood by Automated counOrdered By: Yoli Norris on 08-15-2023 WBC corrected for nucl RBC Auto (Bld) [#/Vol] 11.3 10*3/uL 3.8-11.6 [facility] Lipase [Enzymatic activity/v olume] in Serum or PlasmaOrdered By: Yoli Norris on 08-15-2023 Lipase [Catalytic activity/Vol] 32.0 U/L 11.0-82.0 [facility] Lymphocytes Auto (Bld) [#/Vo l]Ordered By: Yoli Norris on 08-15-2023 Lymphocytes (Bld) [#/Vol] 2.0 10*3/uL 1.00-4.8 [facility] Lymphocytes/100 WBC Auto (Bl d)Ordered By: Yoli Norris on 08-15-2023 Lymphocytes/100 WBC (Bld) 17.8 % . [facility] MCH Auto (RBC) [Entitic mass ]Ordered By: Yoli Norris on 08-15-2023 MCH (RBC) [Entitic mass] 30.2 pg 24.7-34.3 [facility] MCHC Auto (RBC) [Mass/Vol]Or dered By: Yoli Norris on 08-15-2023 MCHC (RBC) [Mass/Vol] 32.7 g/dL 32.0-35.0 [facility] MCV Auto (RBC) [Entitic vol] Ordered By: Yoli Norris on 08-15-2023 MCV (RBC) [Entitic vol] 92.4 fL 80-100 [facility] Monocyte distribution width [Entitic volume] in Blood by AutomatedOrdered By: Yoli Norris on 08-15-2023 Monocyte distribution width Auto (Bld) [Entitic vol] 15.46 % 0.00-20.00 [facility] Monocytes Auto (Bld) [#/Vol] Ordered By: Yoli Norris on 08-15-2023 Monocytes (Bld) [#/Vol] 0.6 10*3/uL 0.0-0.8 [facility] Monocytes/100 WBC Auto (Bld) Ordered By: Yoli Norris on 08-15-2023 Monocytes/100 WBC (Bld) 5.0 % . [facility] Neutrophils Auto (Bld) [#/Vo l]Ordered By: Yoli Norris on 08-15-2023 Neutrophils (Bld) [#/Vol] 8.4 10*3/uL 1.8-7.7 [facility] Neutrophils/100 WBC Auto (Bl d)Ordered By: Yoli Norris on 08-15-2023 Neutrophils/100 WBC (Bld) 74.6 % . [facility] Nitrite Test strip Ql (U)Ord ered By: Yoli Norris on 08-15-2023 Nitrite Ql (U) Negative Negative [facility] No Panel InformationOrdered By: Yoli Norris on 08-15-2023 Estimated GFR (CKD-EPI) > 60.0 mL/Min [facility] Creatinine Clearance (Chem 117.62 [facility] Nucleated erythrocytes [Pres ence] in Blood by Automated countOrdered By: Yoli Norris on 08-15-2023 Nucleated RBC Auto Ql (Bld) 0.0 /100{WBC} 0-0.5 [facility] Platelet mean volume Auto (B ld) [Entitic vol]Ordered By: Yoli Norris on 08-15-2023 Platelet mean volume (Bld) [Entitic vol] 9.2 fL 6.3-10.7 [facility] Platelets Auto (Bld) [#/Vol] Ordered By: Yoli Norris on 08-15-2023 Platelets (Bld) [#/Vol] 321 10*3/uL 150-450 [facility] Potassium [Moles/volume] in Serum or PlasmaOrdered By: Yoli Norris on 08-15-2023 Potassium [Moles/Vol] 3.5 mmol/L 3.5-5.1 [facility] Protein Auto test strip (U) [Mass/Vol]Ordered By: Yoli Norris on 08-15-2023 Protein (U) [Mass/Vol] Negative Negative [facility] Protein [Mass/volume] in Ser um or PlasmaOrdered By: Yoli Norris on 08-15-2023 Protein [Mass/Vol] 7.8 g/dL 6.4-8.9 [facility] RBC Auto (Bld) [#/Vol]Ordere d By: Yoli Norris on 08-15-2023 RBC (Bld) [#/Vol] 4.03 10*6/uL 3.60-5.00 [facility] Serum or plasma albumin/glob ulin mass ratioOrdered By: Yoli Norris on 08-15-2023 Albumin/Globulin [Mass ratio] 1.4 {ratio} [facility] Serum or plasma anion gap de terminationOrdered By: Yoli Norris on 08-15-2023 Anion gap [Moles/Vol] 12.7 mmol/L 6.0-15.0 [facility] Serum or plasma non-glucuron idated bilirubin measurement (mass/volume)Ordered By: Yoli Norris on 08-15-2023 Bilirubin.indirect [Mass/Vol] 0.3 mg/dL [facility] Sodium [Moles/volume] in Ser um or PlasmaOrdered By: Yoli Norris on 08-15-2023 Sodium [Moles/Vol] 140 mmol/L 136-145 [facility] Specific gravity Auto test s trip (U) [Rel density]Ordered By: Yoli Norris on 08-15-2023 Specific gravity (U) [Rel density] 1.007 1.001-1.030 [facility] Urea nitrogen [Mass/volume] in Serum or PlasmaOrdered By: Yoli Norris on 08-15-2023 Urea nitrogen [Mass/Vol] 11 mg/dL 7-25 [facility] Urine clarity by refractomet ry automatedOrdered By: Yoli Norris on 08-15-2023 Clarity Refractometry automated (U) Clear Clear [facility] Urine glucose measurement by automated test strip (mass/volume)Ordered By: Yoli Norris on 08-15-2023 Glucose Auto test strip (U) [Mass/Vol] Normal mg/dL Normal [facility] Urine hemoglobin detection b y automated test stripOrdered By: Yoli Norris on 08-15-2023 Hemoglobin Auto test strip Ql (U) Negative Negative [facility] Urine leukocyte esterase det ection by automated test stripOrdered By: Yoli Norris on 08-15-2023 Leukocyte esterase Auto test strip Ql (U) Negative Negative [facility] Urobilinogen Auto test strip (U) [Mass/Vol]Ordered By: Yoil Norris on 08-15-2023 Urobilinogen (U) [Mass/Vol] Normal mg/dL Normal [facility] Vitamin B1on 08-15-2023 Vitamin B1 145 nmol/L Normal 70-180 [facility] Comment on above: Result Comment: (NOT [...] developed and its performance characteristics determined by [employer]. It has not been cleared or approved by the US Food and Drug Administration. This test was performed in a CLIA certified laboratory and is intended for clinical purposes. Performed By: [facility] [address] [place] [address] Rn Internship: Osmar Salcido MD, PhD CLIA Number: [id number] Performed By: #### P THNCA, FEBC, FERI, GLYHGB, VD25 #### [facility] [address] [place], [place] [id number] Technical Producer: Harpal Adair MD #### ARIAN OLIVOTB1, AZN #### [facility] [address] [place], [place] [id number] Technical Producer: Patricio Zuñiga MD #### CP, MG, CDP #### [facility] [address] [place] [address] Technical Producer: Hilton Armenta MD WBC Auto (Bld) [#/Vol]Ordere d By: Yoli Norris on 08-15-2023 WBC (Bld) [#/Vol] 11.3 10*3/uL 3.8-11.6 [facility] pH Auto test strip (U)Ordere d By: Yoli Norris on 08-15-2023 pH (U) 8.0 [pH] 5.0-9.0 [facility] Zinc, Serumon 08-14-2023 Zinc, Serum 95.3 ug/dL Normal 60.0-120.0 [facility] Comment on above: Result Comment: (NOT [...] developed and its performance characteristics determined by [employer]. It has not been cleared or approved by the US Food and Drug Administration. This test was performed in a CLIA certified laboratory and is intended for clinical purposes. Performed By: [facility] [address] [place] [address] Rn Internship: Osmar Salcido MD, PhD CLIA Number: [id number] Performed By: #### P THNCA, FEBC, FERI, GLYHGB, VD25 #### [address] [address] Technical Producer: Harpal Adair MD #### AGNES OLIVO, AZN #### [address] [phone] Technical Producer: Patricio Zuñiga MD #### MG ANGEL, CDP #### [address] [place] [address] Technical Producer: Hilton Armenta MD B12/Folate Panelon 3 Folic Acid >20.0 Normal >4.8 [facility] Comment on above: Performed By: #### Kina AVALOS, ALFONSO, FERI, GLYHGB, VD25 #### [address] [address] Technical Producer: Harpal Adair MD #### AGNES OLIVO, AZN #### [address] [id number] Technical Producer: Patricio Zuñiga MD #### ANGEL MG, CDP #### [address] [place] [address] Technical Producer: Hilton Armenta MD Cobalamin (Vitamin B12) [Mass/Vol] 632 pg/mL Normal 232-1245 [facility] Comment on above: Performed By: #### P THNCA, FEBC, FERI, GLYHGB, VD25 #### [facility] [address] [place] [address] Technical Producer: Harpal Adair MD #### AGNES OLIVO, AZN #### [facility] [address] [place], [place] [id number] Technical Producer: Patricio Zuñiga MD #### MG ANGEL, CDP #### [address] [place], [place] [phone] Technical Producer: Hilton Armenta MD CBC with Diffon 08-12-2023 Abs. Basophil 0.06 k/uL Normal 0.00-0.20 [facility] Comment on above: Performed By: #### ALFONSO COSTA, FERI, GLYHGB, VD25 #### [address] [address] Technical Producer: Harpal Adair MD #### AGNES OLIVO, AZN #### [facility] [address] [place], [place] [phone] Technical Producer: Patricio Zuñiga MD #### MG ANGEL, CDP #### [address] [place] [address] Technical Producer: Hilton Armenta MD Abs.Imm.Granulocyte 0.03 k/uL Normal 0.00-0.30 [facility] Comment on above: Performed By: #### ALFONSO COSTA, FERI, GLYHGB, VD25 #### [address] [address] Technical Producer: Harpal Adair MD #### AGNES OLIVO, AZN #### [facility] [address] [place], [place] [phone] Technical Producer: Patricio Zuñiga MD #### MG ANGEL, CDP #### [address] [place] [phone] Technical Producer: Hilton Armenta MD Abs.Neutrophil (Seg) 6.33 k/uL Normal 1.50-8.10 [facility] Comment on above: Performed By: #### P BAILEY, FECHRIS, FERI, GLYHGB, VD25 #### [facility] [place], [place] [id number] Technical Producer: Harpal Adair MD #### AGNES OLIVO, AZN #### [facility] [address] [place], [place] [phone] Technical Producer: Patricio Zuñiga MD #### MG ANGEL, CDP #### [address] [place] [phone] Technical Producer: Hilton Armenta MD Basophils/100 WBC (Bld) 1 % Normal 0-2 [facility] Comment on above: Performed By: #### ALFONSO COSTA, FERI, GLYHGB, VD25 #### [address] [address] Technical Producer: Harpal Adair MD #### AGNES OLIVO, AZN #### [facility] [address] [place], [place] [phone] Technical Producer: Patricio Zuñiga MD #### MG ANGEL, CDP #### [address] [place] [phone] Technical Producer: Hilton Armenta MD Eosinophils (Bld) [#/Vol] 0.43 10*3/uL Normal 0.00-0.44 [facility] Comment on above: Performed By: #### P BAILEY, FECHRIS, FERI, GLYHGB, VD25 #### [address] [address] Technical Producer: Harpal Adair MD #### AGNES OLIVO, AZN #### [facility] [address] [place] [address] Technical Producer: Patricio Zuñiga MD #### MG ANGEL, CDP #### [address] [place], [place] [address] Technical Producer: Hilton Armenta MD Eosinophils/100 WBC (Bld) 5 % High 1-4 [facility] Comment on above: Performed By: #### P THNCA, FEBC, FERI, GLYHGB, VD25 #### [address] [id number] Technical Producer: Harpal Adair MD #### AGNES OLIVO, AZN #### [facility] [address] [place], [place] [phone] Technical Producer: Patricio Zuñiga MD #### MG ANGEL, CDP #### [address] [place] [address] Technical Producer: Hilton Armenta MD Erythrocyte distribution width (RBC) [Ratio] 14.9 % High 11.8-14.4 [facility] Comment on above: Performed By: #### Kina COLLINSA, FEBC, FERI, GLYHGB, VD25 #### [address] [address] Technical Producer: Harpal Adair MD #### AGNES OLIVO, AZN #### [facility] [address] [place], [place] [phone] Technical Producer: Patricio Zuñiga MD #### ANGEL MG, CDP #### [address] [place] [address] Technical Producer: Hilton Armenta MD Hematocrit (Bld) [Volume fraction] 38.0 % Normal 36.3-47.1 [facility] Comment on above: Performed By: #### P THNCA, FEBC, FERI, GLYHGB, VD25 #### [facility] [address] [place] [address] Technical Producer: Harpal Adair MD #### AGNES OLIVO, AZN #### [facility] [address] [place] [address] Technical Producer: Patricio Zuñiga MD #### ANGEL, MG, CDP #### [address] [place], [place] [phone] Technical Producer: Hilton Armenta MD Hemoglobin (Bld) [Mass/Vol] 12.2 g/dL Normal 11.9-15.1 [facility] Comment on above: Performed By: #### ALFONSO COSTA, ASHLYI, GLYHGB, VD25 #### [address] [address] Technical Producer: Harpal Adair MD #### AGNES OLIVO, AZN #### [facility] [address] [place], [place] [phone] Technical Producer: Patricio Zuñiga MD #### MG ANGEL, CDP #### [address] [place] [address] Technical Producer: Hilton Armenta MD Immature granulocytes/100 WBC (Bld) 0 % Normal 0 [facility] Comment on above: Performed By: #### ALFONSO COSTA, FERI, GLYHGB, VD25 #### [address] [address] Technical Producer: Harpal Adair MD #### AGNES OLIVO, AZN #### [facility] [address] [place], [place] [id number] Technical Producer: Patricio Zuñiga MD #### CP, MG, CDP #### [address] [place] [address] Technical Producer: Hilton Armenta MD Lymphocytes (Bld) [#/Vol] 1.90 10*3/uL Normal 1.10-3.70 [facility] Comment on above: Performed By: #### P BAILEY, FECHRIS, FERI, GLYHGB, VD25 #### [address] [address] Technical Producer: Harpal Adair MD #### AGNES OLIVO, AZN #### [facility] [address] [place] [address] Technical Producer: Patricio Zuñiga MD #### MG ANGEL, CDP #### [facility] [address] [place] [address] Technical Producer: Hilton Armenta MD Lymphocytes/100 WBC (Bld) 20 % Low 24-43 [facility] Comment on above: Performed By: #### Kina AVALOS, ALFONSO, FERI, GLYHGB, VD25 #### [address] [address] Technical Producer: Harpal Adair MD #### AGNES OLIVO, AZN #### [facility] [address] [place], [place] [id number] Technical Producer: Patricio Zuñiga MD #### MG ANGEL, CDP #### [facility] [address] [place] [address] Technical Producer: Hilton Armenta MD MCH (RBC) [Entitic mass] 29.9 pg Normal 25.2-33.5 [facility] Comment on above: Performed By: #### P DENNISA, FECHRIS, FERI, GLYHGB, VD25 #### [facility] [address] [place] [address] Technical Producer: Harpal Adair MD #### AGNES OLIVO, AZN #### [facility] [address] [place], [place] [id number] Technical Producer: Patricio Zuñiga MD #### ANGEL MG, CDP #### [address] [place], [place] [phone] Technical Producer: Hilton Armenta MD MCHC (RBC) [Mass/Vol] 32.1 g/dL Normal 28.4-34.8 [facility] Comment on above: Performed By: #### P DENNISA, FECHRIS, FERI, GLYHGB, VD25 #### [address] [place], [place] [id number] Technical Producer: Harpal Adair MD #### AGNES OLIVO, AZN #### [facility] [address] [place], [place] [id number] Technical Producer: Patricio Zuñiga MD #### MG ANGEL, CDP #### [address] [place] [phone] Technical Producer: Hilton Armenta MD MCV (RBC) [Entitic vol] 93.1 fL Normal 82.6-102.9 [facility] Comment on above: Performed By: #### Kina AVALOS, ALFONSO, FERI, GLYHGB, VD25 #### [address] [address] Technical Producer: Harpal Adair MD #### AGNES OLIVO, AZN #### [facility] [address] [place], [place] [id number] Technical Producer: Patricio Zuñiga MD #### ANGEL MG, CDP #### [address] [place] [address] Technical Producer: Hilton Armenta MD Monocytes (Bld) [#/Vol] 0.70 10*3/uL Normal 0.10-1.20 [facility] Comment on above: Performed By: #### P THHAYDEEA, FEBC, FERI, GLYHGB, VD25 #### [facility] [address] [place] [address] Technical Producer: Harpal Adair MD #### TYREE OLIVO1, AZN #### [facility] [address] [place] [address] Technical Producer: Patricio Zuñiga MD #### ANGEL MG, CDP #### [facility] [address] [place], [place] [phone] Technical Producer: Hilton Armenta MD Monocytes/100 WBC (Bld) 7 % Normal 3-12 [facility] Comment on above: Performed By: #### P BAILEY, FECHRIS, FERI, GLYHGB, VD25 #### [facility] [address] [place] [address] Technical Producer: Harpal Adair MD #### AGNES OLIVO, AZN #### [facility] [address] [place], [place] [id number] Technical Producer: Patricio Zuñiga MD #### MG ANGEL, CDP #### [address] [place], [place] [phone] Technical Producer: Hilton Armenta MD Neutrophil (Seg) 67 % High 36-65 [facility] Comment on above: Performed By: #### P DENNISA, FEBC, FERI, GLYHGB, VD25 #### [facility] [address] [place] [address] Technical Producer: Harpal Adair MD #### AGNES OLIVO, AZN #### [facility] [address] [place], [place] [id number] Technical Producer: Patricio Zuñiga MD #### ANGEL, MG, CDP #### [facility] [address] [place], [place] [phone] Technical Producer: Hilton Armenta MD NRBC Automated 0.0 per 100 WBC Normal 0.0 [facility] Comment on above: Performed By: #### P THNCA, FEBC, FERI, GLYHGB, VD25 #### [address] [address] Technical Producer: Harpal Adair MD #### AGNES OLIVO, AZN #### [facility] [address] [place] [address] Technical Producer: Patricio Zuñiga MD #### CP, MG, CDP #### [address] [place] [address] Technical Producer: Hilton Armenta MD Platelet mean volume (Bld) [Entitic vol] 10.6 fL Normal 8.1-13.5 [facility] Comment on above: Performed By: #### P DENNISA, FECHRIS, FERI, GLYHGB, VD25 #### [address] [address] Technical Producer: Harpal Adair MD #### AGNES OLIVO, AZN #### [facility] [address] [place], [place] [id number] Technical Producer: Patricio Zuñiga MD #### ANGEL, MG, CDP #### [address] [place] [address] Technical Producer: Hilton Armenta MD Platelets (Bld) [#/Vol] 355 10*3/uL Normal 138-453 [facility] Comment on above: Performed By: #### P THNCA, FEBC, FERI, GLYHGB, VD25 #### [address] [address] Technical Producer: Harpal Adair MD #### AGNES OLIVO, AZN #### [facility] [address] [place], [place] [id number] Technical Producer: Patricio Zuñiga MD #### CP, MG, CDP #### [address] [place] [address] Technical Producer: Hilton Armneta MD RBC (Bld) [#/Vol] 4.08 10*6/uL Normal 3.95-5.11 [facility] Comment on above: Performed By: #### P THNCA, FEBC, FERI, GLYHGB, VD25 #### [facility] [address] [place] [address] Technical Producer: Harpal Adair MD #### AGNES OLIVO, AZN #### [facility] [address] [place], [place] [id number] Technical Producer: Patricio Zuñiga MD #### ANGEL, MG, CDP #### [address] [place] [address] Technical Producer: Hilton Armenta MD WBC (Bld) [#/Vol] 9.5 10*3/uL Normal 3.5-11.3 [facility] Comment on above: Performed By: #### P THNCA, FEBC, FERI, GLYHGB, VD25 #### [address] [place] [address] Technical Producer: Harpal Adair MD #### AGNES OLIVO, AZN #### [facility] [address] [place], [place] [id number] Technical Producer: Patricio Zuñiga MD #### CP, MG, CDP #### [address] [place] [address] Technical Producer: Hilton Armenta MD Comp Metabolic Profon 2022 Albumin [Mass/Vol] 4.5 g/dL Normal 3.5-5.2 [facility] Comment on above: Performed By: #### P THNCA, FEBC, FERI, GLYHGB, VD25 #### [facility] [place] [address] Technical Producer: Harpal Adair MD #### AGNES OLIVO, AZN #### [facility] [address] [place] [address] Technical Producer: Patricio Zuñiga MD #### ANGEL MG, CDP #### [address] [place], [place] [phone] Technical Producer: Hilton Armenta MD Albumin/Glob Ratio 1.6 Normal 1.0-2.5 [facility] Comment on above: Performed By: #### P DENNISA, FECHRIS, FERI, GLYHGB, VD25 #### [address] [address] Technical Producer: Harpal Adair MD #### AGNES OLIVO, AZN #### [facility] [address] [place] [address] Technical Producer: Patricio Zuñiga MD #### MG ANGEL, CDP #### [address] [place], [place] 1997183 Technical Producer: Hilton Armenta MD Alkaline Phos 85 U/L Normal 35-104 [facility] Comment on above: Performed By: #### P GINCA, FEBC, FERI, GLYHGB, VD25 #### [address] [place] [address] Technical Producer: Harpal Adair MD #### AGNES OLIVO, AZN #### [facility] [address] [place] [address] Technical Producer: Patricio Zuñiga MD #### ANGEL MG, CDP #### [address] [place] [address] Technical Producer: Hilton Armenta MD ALT [Catalytic activity/Vol] 21 U/L Normal 5-33 [facility] Comment on above: Performed By: #### P THNCA, FEBC, FERI, GLYHGB, VD25 #### [facility] [address] [place] [address] Technical Producer: Harpal Adair MD #### AGNES OLIVO, AZN #### [facility] [address] [place], [place] [id number] Technical Producer: Patricio Zuñiga MD #### CP, MG, CDP #### [facility] [address] [place] [address] Technical Producer: Hilton Armenta MD Anion gap [Moles/Vol] 11 mmol/L Normal 9-17 [facility] Comment on above: Performed By: #### P THNCA, FEBC, FERI, GLYHGB, VD25 #### [facility] [address] [place] [address] Technical Producer: Harpal Adair MD #### AGNES OLIVO, AZN #### [facility] [address] [place], [place] [phone] Technical Producer: Patricio Zuñiga MD #### ANGEL, MG, CDP #### [facility] [address] [place] [address] Technical Producer: Hilton Armenta MD AST [Catalytic activity/Vol] 22 U/L Normal <32 [facility] Comment on above: Performed By: #### P THNCA, FEBC, FERI, GLYHGB, VD25 #### [address] [address] Technical Producer: Harpal Adair MD #### ARIAN OLIVOTB1, AZN #### [facility] [address] [place], [place] [phone] Technical Producer: Patricio Zuñiga MD #### CP, MG, CDP #### [facility] [address] [place], [place] 504[address]83 Technical Producer: Hilton Armenta MD Bilirubin [Mass/Vol] 0.2 mg/dL Low 0.3-1.2 [facility] Comment on above: Performed By: #### P THNCA, FEBC, FERI, GLYHGB, VD25 #### [facility] [address] [place] [address] Technical Producer: Harpal Adair MD #### ARIAN OLIVOTB1, AZN #### [facility] [address] [place] [address] Technical Producer: Patricio Zuñiga MD #### ANGEL, MG, CDP #### [address] [place], [place] 7292183 Technical Producer: Hilton Armenta MD BUN/CRE Ratio 20 Normal 9-20 [facility] Comment on above: Performed By: #### P THNCA, FEBC, FERI, GLYHGB, VD25 #### [address] [address] Technical Producer: Harpal Adair MD #### AGNES OLIVO, AZN #### [facility] [address] [place] [address] Technical Producer: Patricio Zuñiga MD #### CP, MG, CDP #### [facility] [address] [place], [place] 8892983 Technical Producer: Hilton Armenta MD Calcium [Mass/Vol] 9.9 mg/dL Normal 8.6-10.4 [facility] Comment on above: Performed By: #### P THNCA, FEBC, FERI, GLYHGB, VD25 #### [address] [address] Technical Producer: Harpal Aadir MD #### TYREE OLIVO1, AZN #### [facility] [address] [place] [address] Technical Producer: Patricio Zuñiga MD #### CP, MG, CDP #### [facility] [address] [place], [place] 5406783 Technical Producer: Hilton Armenta MD Chloride [Moles/Vol] 107 mmol/L Normal 98-107 [facility] Comment on above: Performed By: #### P THNCA, FEBC, FERI, GLYHGB, VD25 #### [facility] [address] [place] [address] Technical Producer: Harpal Adair MD #### ARIAN OLIVOTB1, AZN #### [facility] [address] [place], [place] [id number] Technical Producer: Patricio Zuñiga MD #### ANGEL, MG, CDP #### [address] [place] [address] Technical Producer: Hilton Armenta MD CO2 [Moles/Vol] 23 mmol/L Normal 20-31 [facility] Comment on above: Performed By: #### P THNCA, FEBC, FERI, GLYHGB, VD25 #### [address] [address] Technical Producer: Harpal Adair MD #### TYREE OLIVO1, AZN #### [facility] [address] [place], [place] [id number] Technical Producer: Patricio Zuñiga MD #### CP, MG, CDP #### [address] [place], [place] 0881383 Technical Producer: Hilton Armenta MD Creatinine [Mass/Vol] 0.6 mg/dL Normal 0.5-0.9 [facility] Comment on above: Performed By: #### P THNCA, FEBC, FERI, GLYHGB, VD25 #### [facility] [place], [place] [phone] Technical Producer: Harpal Adair MD #### AGNES OLIVO, AZN #### [facility] [address] [place], [place] [id number] Technical Producer: Patricio Zuñiga MD #### MG ANGEL, CDP #### [address] [place] [address] Technical Producer: Hilton Armenta MD GFR/1.73 sq M.predicted among non-blacks MDRD (S/P/Bld) [Vol rate/Area] mL/min/{1.73_m2} Normal >60 [facility] Comment on above: Result Comment: These [...] renal tubular secretion. Performed By: #### P GINCA, FEBC, FERI, GLYHGB, VD25 #### [facility] [address] [place] [address] Technical Producer: Harpal Adair MD #### AGNES OLIVO, SENAN #### [facility] [address] [place], [place] [id number] Technical Producer: Patricio Zuñiga MD #### ANGEL MG, CDP #### [address] [place] [address] Technical Producer: Hilton Armenta MD Glucose [Mass/Vol] 89 mg/dL Normal 70-99 [facility] Comment on above: Performed By: #### P THHAYDEEA, FEBC, FERI, GLYHGB, VD25 #### [facility] [address] [place] [address] Technical Producer: Harpal Adair MD #### AGNES OLIVO, AZN #### [facility] [address] [place], [place] [id number] Technical Producer: Patricio Zuñiga MD #### ANGEL MG, CDP #### [address] [place] [address] Technical Producer: Hilton Armenta MD Potassium [Moles/Vol] 4.3 mmol/L Normal 3.7-5.3 [facility] Comment on above: Performed By: #### ALFONSO COSTA, ASHLYI, GLYHGB, VD25 #### [address] [address] Technical Producer: Harpal Adair MD #### AGNES OLIVO, AZN #### [facility] [address] [place] [id number] Technical Producer: Patricio Zuñiga MD #### MG ANGEL, CDP #### [address] [place] [address] Technical Producer: Hilton Armenta MD Protein [Mass/Vol] 7.4 g/dL Normal 6.4-8.3 [facility] Comment on above: Performed By: #### ALFONSO COSTA, FERI, GLYHGB, VD25 #### [address] [place] [address] Technical Producer: Harpal Adair MD #### AGNES OLIVO, AZN #### [facility] [address] [place], [place] [id number] Technical Producer: Patricio Zuñiga MD #### ANGEL MG, CDP #### [address] [place] [address] Technical Producer: Hilton Armenta MD Sodium [Moles/Vol] 141 mmol/L Normal 135-144 [facility] Comment on above: Performed By: #### P THNCA, FEBC, FERI, GLYHGB, VD25 #### [facility] [address] [place] [address] Technical Producer: Harpal Adair MD #### AGNES OLIVO, AZN #### [facility] [address] [place] [address] Technical Producer: Patricio Zuñiga MD #### CP, MG, CDP #### [facility] [address] [place] [address] Technical Producer: Hilton Armenta MD Urea nitrogen [Mass/Vol] 12 mg/dL Normal 6-20 [facility] Comment on above: Performed By: #### P DENNISA, FEBC, FERI, GLYHGB, VD25 #### [address] [address] Technical Producer: Harpal Adair MD #### AGNES OLIVO, AZN #### [facility] [address] [place] [address] Technical Producer: Patricio Zuñiga MD #### ANGEL, MG, CDP #### [facility] [address] [place] [address] Technical Producer: Hilton Armenta MD Ferritinon 08-12-2023 Ferritin [Mass/Vol] 12 ng/mL Low 13-150 [facility] Comment on above: Performed By: #### P THNCA, FEBC, FERI, GLYHGB, VD25 #### [address] [address] Technical Producer: Harpal Adair MD #### ARIAN OLIVOTB1, AZN #### [facility] [address] [place], [place] [id number] Technical Producer: Patricio Zuñiga MD #### ANGEL, MG, CDP #### [facility] [address] [place] [address] [place] [address] Technical Producer: Hilton Armenta MD Hemoglobin A1Con 08-12-2023 Glucose [Mass/Vol] 114 mg/dL Normal [facility] Comment on above: Result Comment: The ADA and AACC recommend providing the estimated average glucose result to permit better patient understanding of their HBA1c result. Performed By: #### P THNCA, FEBC, FERI, GLYHGB, VD25 #### [facility] [place], [place] [id number] Technical Producer: Harpal Adair MD #### AGNES OLIVO, AZN #### [facility] [address] [place] [address] Technical Producer: Patricio Zuñiga MD #### MG ANGEL, CDP #### [facility] [address] [place] [address] [place] [address] Technical Producer: Hilton Armenta MD HbA1c (Bld) [Mass fraction] 5.6 % Normal 4.0-6.0 [facility] Comment on above: Performed By: #### P THNCA, FEBC, FERI, GLYHGB, VD25 #### [facility] [address] [place] [id number] Technical Producer: Harpal Adair MD #### AGNES OLIVO, AZN #### [facility] [address] [place] [address] Technical Producer: Patricio Zuñiga MD #### ANGEL MG, CDP #### [address] [place] [address] Technical Producer: Hilton Armenta MD Iron Binding Cap.on 08-12-20 23 % Fe Saturation 16 % Low 20-55 [facility] Comment on above: Performed By: #### P THNCA, FEBC, FERI, GLYHGB, VD25 #### [address] [place] [address] Technical Producer: Harpal Adair MD #### AGNES OLIVO, AZN #### [facility] [address] [place] [address] Technical Producer: Patricio Zuñiga MD #### ANGEL MG, CDP #### [address] [place], [place] 2046083 Technical Producer: Hilton Armenta MD Iron [Mass/Vol] 57 ug/dL Normal 37-145 [facility] Comment on above: Performed By: #### P THNCA, FEBC, FERI, GLYHGB, VD25 #### [address] [address] Technical Producer: Harpal Adair MD #### AGNES OLIVO, AZN #### [facility] [address] [place] [address] Technical Producer: Patricio Zuñiga MD #### MG ANGEL, CDP #### [address] [place] [address] Technical Producer: Hilton Armenta MD Total Fe Binding Cap 354 ug/dL Normal 250-450 [facility] Comment on above: Performed By: #### P THNCA, FEBC, FERI, GLYHGB, VD25 #### [address] [address] Technical Producer: Harpal Adair MD #### AGNES OLIVO, AZN #### [facility] [address] [place] [address] Technical Producer: Patricio Zuñiga MD #### ANGEL, MG, CDP #### [address] [place] [address] Technical Producer: Hilton Armenta MD Unbound Fe Bind Cap 297 ug/dL Normal 112-347 [facility] Comment on above: Performed By: #### P THHAKEEM, FEBC, FERI, GLYHGB, VD25 #### [address] [place] [address] Technical Producer: Harpal Adair MD #### ARIAN OLIVOTB1, AZN #### [facility] [address] [place] [address] Technical Producer: Patricio Zuñiga MD #### CP, MG, CDP #### [facility] [address] [place] [address] Technical Producer: Hilton Armenta MD Lipid Profileon 08-12-2023 Cholesterol [Mass/Vol] 153 mg/dL Normal <200 [facility] Comment on above: Result Comment: Cholesterol Guidelines: <200 Desirable 200-240 Borderline >240 Undesirable Performed By: #### L IPR #### [address] [address] Technical Producer: Harpal Adair MD Cholesterol in HDL [Mass/Vol] 68 mg/dL Normal >40 [facility] Comment on above: Result Comment: HDL Guidelines: <40 Undesirable 40-59 Borderline >59 Desirable Performed By: #### L IPR #### [address] [address] Technical Producer: Harpal Adair MD Cholesterol in LDL [Mass/Vol] 77 mg/dL Normal 0-130 [facility] Comment on above: Result Comment: LDL Guidelines: <100 Desirable 100-129 Near to/above Desirable 130-159 Borderline >159 Undesirable Direct (measured) LDL and calculated LDL are not interchangeable tests. Performed By: #### L IPR #### [address] [address] Technical Producer: Harpal Adair MD Cholesterol.total/Chol esterol in HDL [Mass ratio] 2.3 {ratio} Normal <5 [facility] Comment on above: Performed By: #### L IPR #### [address] [place] [address] Technical Producer: Harpal Adair MD Triglyceride [Mass/Vol] 39 mg/dL Normal <150 [facility] Comment on above: Result Comment: Triglyceride Guidelines: <150 Desirable 150-199 Borderline 200-499 High >499 Very high Based on AHA Guidelines for fasting triglyceride, June 2012. Performed By: #### L IPR #### [address] [address] Technical Producer: Harpal Adair MD Magnesiumon 08-12-2023 Magnesium [Mass/Vol] 2.1 mg/dL Normal 1.6-2.6 [facility] Comment on above: Performed By: #### P ALFONSO AVALOS FERI, DONAVANB, VD25 #### [address] [address] Technical Producer: Harpal Adair MD #### AGNES OLIVO, AZN #### [facility] [address] [place] [address] Technical Producer: Patricio Zuñiga MD #### CP, MG, CDP #### [facility] [address] [place], [place] [phone] Technical Producer: Hilton Armenta MD PTH, Intacton 08-12-2023 PTH, Intact 17.1 pg/mL Normal 14.0-72.0 [facility] Comment on above: Result Comment: SAMP LES FROM PATIENTS ROUTINELY RECEIVING HIGH DOSE BIOTIN THERAPY MAY SHOW FALSELY DEPRESSED RESULTS. ADDITIONAL INFORMATION MAY BE REQUIRED FOR DIAGNOSIS. Performed By: #### P ALFONSO AVALOS FERI, GLYHGB, VD25 #### [address] [address] Technical Producer: Harpal Adair MD #### AGNES OLIVO, AZN #### [facility] [address] [place] [address] Technical Producer: Patricio Zuñiga MD #### ANGEL MG, CDP #### [address] [place] [address] Technical Producer: Hilton Armenta MD Thyroid Stim. Horm.on 2022 Thyroid Stim. Horm. 1.50 uIU/mL Normal 0.30-5.00 [facility] Comment on above: Performed By: #### P DENNISA, FECHRIS, FERI, GLYHGB, VD25 #### [address] [id number] Technical Producer: Harpal Adair MD #### AGNES OLIVO, AZN #### [facility] [address] [place] [address] Technical Producer: Patricio Zuñiga MD #### MG ANGEL, CDP #### [address] [place] [address] Technical Producer: Hilton Armenta MD Thyroxine, Freeon 08-12-2023 Thyroxine, Free 1.2 ng/dL Normal 0.9-1.7 [facility] Comment on above: Performed By: #### P DENNISA, FECHRIS, FERI, GLYHGB, VD25 #### [address] [id number] Technical Producer: Harpal Adair MD #### AGNES OLIVO, AZN #### [facility] [address] [place] [address] Technical Producer: Patricio Zuñiga MD #### MG ANGEL, CDP #### [address] [place] [address] Technical Producer: Hilton Armenta MD US GALLBLADDER RUQon 023 US GALLBLADDER RUQ EXAMINATION: RIGHT UPPER QUADRANT ULTRASOUND 08/12/2023 7:25 am COMPARISON: None. HISTORY: ORDERING SYSTEM PROVIDED HISTORY: LUQ pain TECHNOLOGIST PROVIDED HISTORY: This procedure can be scheduled via [employer]. Access your [employer] account by visiting [employer]. FINDINGS: LIVER: The liver demonstrates normal echogenicity [...] Bret Monson DO 08/12/23 Final result Normal [facility] Vitamin D 25 OHon 08-12-2023 Vitamin D 25 OH 45.1 ng/mL Normal >29.9 [facility] Comment on above: Result Comment: Reference Range: Vitamin D status Range Deficiency <20 ng/mL Mild Deficiency 20-30 ng/mL Sufficiency 30-100 ng/mL Toxicity >100 ng/mL Performed By: #### P THNCA, FEBC, FERI, GLYHGB, VD25 #### [facility] [place] [address] Technical Producer: Harpal Adair MD #### AGNES OLIVO, SENAN #### [facility] [address] [place] [address] Technical Producer: Patricio Zuñiga MD #### CP, MG, CDP #### [facility] [address] [place] [address] Technical Producer: Hilton Armenta MD Patient Correspondenceon Patient Correspondence [phone] [id number] IFF Normal [facility] ED Note-Physicianon 10-31-20 23 ED Note-Physician Basic Information Time Seen: Torres GERONIMOShama. 06/09/2023 15:45 Chief Complaint Pt presents to ED with complaints of MALDONADO onset today. History of Present Illness This patient presents to the emergency department chief complaint of maryam. She states that she has spent $10,000 in the last 2 weeks. She did see her psychiatrist at [facility] today and they are starting her [...] of care. (more content not included)... Normal [facility] Comment on above: Result Comment: Elec tronically Signed By: Shama Macdonald PA-C\.br\Date and Time Signed: 07/14/23 19:57 EDT\.br\Electronically Co-Signed By: Alexis Shukla DO\.br\Date and Time Co-Signed: 07/20/23 07:11 EST COVID Quick Testingon 2022 Result Negative Züm XR Other Consultation Noteon 07-08-20 Consultation Note [id number]#1.00T IFF Normal [facility] Consent for Treatmenton 06-14 Consent for Treatment [id number] IFF Normal [facility] ED Clinical Summaryon 2022 ED Clinical Summary (Inserted Image. Jordana ble to display) [address] [address] ED Clinical Summary Person Information Name: SHAZIA CHOU Wayne/[facility] Age: 32 Years : 1990 Sex: Female Language: Indonesian PCP: Jennie Durand DO Marital Status: Phone: [phone] MRN: Visit Id: Visit Reason: Headache; Neck [...] 15:29:14 07/02/2023 15:29:14 07/02/2023 15:29:14 ADDRESS: [address] [place] [id number] [facility] DOC NOTES: MEDICAL INFORMATION: Prescriptions Given: [...] EDUCATION INFORMATION: Instructions: Follow up: DIAGNOSIS: Normal [facility] ED Patient Education Noteon 07-02-2023 ED Patient Education Note Normal [facility] ED Patient Summaryon 023 ED Patient Summary (Inserted Image. Jordana ble to display) [place] [address] Patient Discharge Instructions Person Information Name: SHAZIA CHOU Age: 32 Years Arrival Date: 07/02/2023 14:03:05 Discharge Diagnosis: Primary Care Physician: Jennie Durand DO Provider Information Primary Provider: Bakari Chester DO Advanced Recreation Leader:Merari Polanco PA-C The exam and treatment you received in the Emergency Department were for an urgent problem and are not intended as complete care. It is important that you follow up with a doctor, nurse practitioner, or physician?s assistant dean for ongoing care. If your symptoms become [...] opioids can be used to help relieve dqwsaaok-jh-nsgcsg pain and are often prescribed following a [...] from the Food and Drug Administration (www.fda.gov/Drugs/Reso urcesYasirYou). ? Visit www.cdc.gov/drugoverdos e to learn about the risks of opioids abuse and overdose. ? If you believe you may be struggling with addiction, tell your health child care team lead and ask for guidance or call [facility]?S [employer] Helpline at [phone]. k Source: US Department of Health and Human Services/Center for Disease Control & Prevention [facility] Medications Given: Medication Dose Route No medication (more content not included)... [facility] Consultation Noteon 06-22-20 Consultation Note [id number]#[id number] FF [facility] Consultation Noteon 06-19-20 Consultation Note [id number]#[id number] IFF [facility] Ernesto 06-15-2023 IRENEN Telephone (DESTINYFV) SHAZIA CHOU ([id number]) 1990 F Date Time Provider Department 06/15/23 EILEEN ALVAREZ During your visit today, we recorded the following information about you: Clara Durbin RN 06/15/2023 4:57 PM Signed Received clinical notes and test results from [facility] ED visit from 06/10/23. 13 pages. Scanned to chart via Talk[employer]k. Routed to provider for review Glen Singh [...] is not alleviating the problem. Patient # [phone] Gorge Betancur 07/03/2023 12:15 PM Signed Per instructions from Dr. Alvarez. LM for patient, also sent message via [employer]. She needs to be back on diamox [...] 40 mg by mouth once daily. - xplyqeqsuimm-kyq-tapc-F A-vit K (BARIATRIC MULTIVITAMINS) 45 mg iron- [...] Status:Closed by GORGE BETANCUR on 07/03/23 Normal [facility] Discharge Instructionson Discharge Instructions [id number]#1.00 CD:[address] [facility] Acetamnphn Lvlon 06-09-2023 Acetaminophen [Mass/Vol] ug/mL Low 15-30 [facility] Comment on above: Performed By: #### 2 909425, 8779554, 5370729, 3189741, 7461495, 57855602 ####[facility] [address] [place] [address] Auto Diffon 06-09-2023 Basophils/100 WBC (Bld) 0.6 % Normal 0.0-2.0 [facility] Comment on above: Order Comment: Order Added by Discern Expert. Performed By: #### 2 819847, 2148923, 3313926, 4669668, 1439473, 90165695 ####[facility] [address] [place] [address] Basophils/Leukocytes Auto (Bld) [Pure # fraction] 0.0 E9/L Normal 0.0-0.2 [facility] Comment on above: Order Comment: Order Added by Discern Expert. Performed By: #### 2 896752, 0572253, 1429801, 6290523, 4425673, 40812361 ####[facility] [address] [place] [address] Eosinophils/100 WBC (Bld) 1.9 % Normal 0.0-8.0 [facility] Comment on above: Order Comment: Order Added by Discern Expert. Performed By: #### 2 842964, 5114717, 7158901, 7223351, 1032405, 86977832 ####[facility] [address] [place] [address] Eosinophils/Leukocytes Auto (Bld) [Pure # fraction] 0.2 E9/L Normal 0.0-0.5 [facility] Comment on above: Order Comment: Order Added by Discern Expert. Performed By: #### 2 702840, 4990816, 4159523, 9709169, 9749225, 84561640 ####[facility] [address] [place] [address] Lymphocytes/100 WBC (Bld) 23.4 % Normal 14.0-50.0 [facility] Comment on above: Order Comment: Order Added by Discern Expert. Performed By: #### 2 489042, 4998043, 6643954, 6722425, 0064737, 99708754 ####[facility] [address] [place] [address] Lymphocytes/Leukocytes Auto (Bld) [Pure # fraction] 2.0 E9/L Normal 1.0-4.0 [facility] Comment on above: Order Comment: Order Added by Ilana Expert. Performed By: #### 2 735032, 7999037, 0861743, 8417307, 9985612, 60221921 ####[facility] [address] [place] [address] Monocytes/100 WBC (Bld) 6.9 % Normal 4.0-14.0 [facility] Comment on above: Order Comment: Order Added by Ilana Expert. Performed By: #### 2 395968, 7098246, 6619467, 6829938, 1638697, 85416243 ####[facility] [address] [place] [address] Monocytes/Leukocytes Auto (Bld) [Pure # fraction] 0.6 E9/L Normal 0.2-1.0 [facility] Comment on above: Order Comment: Order Added by Ilana Expert. Performed By: #### 2 592997, 3996953, 8808868, 6378461, 7828535, 27231883 ####[facility] [address] [place] [address] Neutrophils/100 WBC (Bld) 67.2 % Normal 36.0-75.0 [facility] Comment on above: Order Comment: Order Added by Discern Expert. Performed By: #### 2 410023, 3151817, 8139518, 3648516, 2427816, 08448050 ####[place] [address] [place] [address] Neutrophils/Leukocytes Auto (Bld) [Pure # fraction] 5.6 E9/L Normal 2.0-7.5 [facility] Comment on above: Order Comment: Order Added by Discern Expert. Performed By: #### 2 055873, 3737160, 3605886, 9612590, 9127975, 60594262 ####[place] [address] [place] [address] CBC w/ Auto Diffon 3 Erythrocyte distribution width (RBC) [Ratio] 18.2 % High 10.9-14.2 [facility] Comment on above: Performed By: #### 2 150076, 7061385, 1984337, 2939038, 6269413, 87285251 ####[address] [address] Hematocrit (Bld) [Volume fraction] 34.3 % Normal 34.0-46.0 [facility] Comment on above: Performed By: #### 2 213418, 1326016, 7521509, 8400017, 8972481, 43798203 ####[place] [address] [place] [address] Hemoglobin (Bld) [Mass/Vol] 11.5 g/dL Low 12.0-16.0 [facility] Comment on above: Performed By: #### 2 906512, 3935644, 0978944, 9865196, 8266447, 97946847 ####[place] [address] [place] [address] MCH (RBC) [Entitic mass] 30.6 pg Normal 27.0-34.0 [facility] Comment on above: Performed By: #### 2 298771, 6427401, 7453917, 6718769, 7631027, 33344758 ####[place] [address] [place] [address] MCHC (RBC) [Mass/Vol] 33.6 g/dL Normal 31.4-36.0 [facility] Comment on above: Performed By: #### 2 739163, 6968765, 8074169, 9090627, 3312098, 32730776 ####[facility] [address] [place] [address] MCV (RBC) [Entitic vol] 91.0 fL Normal 80.0-100.0 [facility] Comment on above: Performed By: #### 2 221864, 9097557, 4257373, 9133163, 2572095, 01780051 ####[address] [address] Platelet mean volume (Bld) [Entitic vol] 9.8 fL Normal 6.4-10.8 [facility] Comment on above: Performed By: #### 2 331043, 5780133, 9602417, 3087724, 9252661, 02743997 ####[facility] [address] [place] [address] Platelets (Bld) [#/Vol] 283.0 E9/L Normal 150.0-500.0 [facility] Comment on above: Performed By: #### 2 028544, 2335877, 6458529, 1862417, 0599029, 49455400 ####[address] [address] RBC (Bld) [#/Vol] 3.8 E12/L Low 4.3-5.9 [facility] Comment on above: Performed By: #### 2 259062, 7823933, 1296896, 2652326, 9787048, 53941055 ####[address] [address] WBC corrected for nucl RBC Auto (Bld) [#/Vol] 8.4 E9/L Normal 4.0-11.0 [facility] Comment on above: Performed By: #### 2 746003, 3632232, 7869806, 7987784, 4874470, 04719067 ####[facility] [address] [place] [address] CMPon 06-09-2023 Albumin [Mass/Vol] 4.1 g/dL Normal 3.3-5.0 [facility] Comment on above: Performed By: #### 2 991479, 5481115, 1468681, 8559143, 9731929, 68683942 ####[facility] [address] [place] [address] Albumin/Globulin (S) [Mass conc ratio] 1.3 Normal 1.1-2.2 [facility] Comment on above: Performed By: #### 2 813901, 4977757, 1432218, 3941457, 3474515, 86490098 ####[place] [address] [place] [address] ALP [Catalytic activity/Vol] 58 Int._Unit/L Normal 21-98 [facility] Comment on above: Performed By: #### 2 359920, 9158891, 5470058, 9075872, 2332170, 73079694 ####[facility] [address] [place] [address] ALT No additional P-5'-P [Catalytic activity/Vol] 18 Int._Unit/L Normal 6-46 [facility] Comment on above: Performed By: #### 2 253858, 1252149, 7410883, 6329158, 3504113, 60290152 ####[facility] [address] [place] [address] AST [Catalytic activity/Vol] 20 Int._Unit/L Normal 5-43 [facility] Comment on above: Performed By: #### 2 319597, 2603176, 4122076, 8673666, 8288308, 48065548 ####[facility] [address] [place] [address] Bilirubin [Mass/Vol] 0.1 mg/dL Normal 0.0-1.1 [facility] Comment on above: Performed By: #### 2 216756, 0719545, 6955881, 7675790, 2942391, 94984702 ####[facility] [address] [place] [address] Creatinine [Mass/Vol] 0.6 mg/dL Normal 0.5-1.3 [facility] Comment on above: Performed By: #### 2 471995, 3694849, 6253164, 4498159, 4190922, 76982785 ####[facility] [address] [place] [address] Globulin (S) [Mass/Vol] 3.2 g/dL Normal 1.4-4.0 [facility] Comment on above: Performed By: #### 2 017812, 7314209, 1407828, 2715498, 3862859, 69721967 ####[facility] [address] [place] [address] Protein [Mass/Vol] 7.3 g/dL Normal 6.0-7.8 [facility] Comment on above: Performed By: #### 2 650540, 6036586, 3677267, 0588044, 2945585, 21591617 ####[facility] [address] [place] [address] Urea nitrogen [Mass/Vol] 15 mg/dL Normal 5-21 [facility] Comment on above: Performed By: #### 2 710529, 4201392, 8786489, 4745480, 6971455, 66432955 ####[facility] [address] [place] [address] Urea nitrogen/Creatinine [Mass ratio] 25 No Units High 10-20 [facility] Comment on above: Performed By: #### 2 229988, 0587515, 6512812, 9049093, 3880455, 31149912 ####[facility] [address] [place] [address] Anion gap [Moles/Vol] 13 mmol/L Normal 6-16 [facility] Comment on above: Performed By: #### 2 151479, 4731086, 6464796, 6048378, 8344276, 85117594 ####[facility] [address] [place] [address] Calcium [Mass/Vol] 9.3 mg/dL Normal 8.9-11.1 [facility] Comment on above: Performed By: #### 2 300873, 1134145, 3088204, 8684172, 0604129, 39585260 ####[facility] [address] [place] [address] Chloride [Moles/Vol] 107 mmol/L Normal 101-111 [facility] Comment on above: Performed By: #### 2 407706, 7081948, 9983490, 4685001, 8752217, 53234262 ####[facility] [address] [place] [address] CO2 [Moles/Vol] 23 mmol/L Normal 21-31 [facility] Comment on above: Performed By: #### 2 000003, 6671395, 1980167, 0963360, 2340398, 38550287 ####[facility] [address] [place] [address] Glucose [Mass/Vol] 91 mg/dL Normal 55-199 [facility] Comment on above: Result Comment: If t his glucose result represents a fasting glucose, interpretation should refer to the following reference range: 55-99 mg/dL Performed By: #### 2 136550, 9587083, 2796543, 3473340, 2120128, 07417814 ####[facility] [address] [place] [address] Potassium [Moles/Vol] 3.6 mmol/L Normal 3.5-5.3 [facility] Comment on above: Performed By: #### 2 186390, 3761716, 3819546, 7327640, 9552759, 17663013 ####[facility] [address] [place] [address] Sodium [Moles/Vol] 139 mmol/L Normal 135-145 [facility] Comment on above: Performed By: #### 2 062304, 0252728, 3213635, 3698509, 0639690, 73469925 ####[facility] [address] [place] [address] Consent for Treatmenton 05-16 Consent for Treatment [id number]#1.00C D:[address] [facility] ED Clinical Summaryon 2022 ED Clinical Summary (Inserted Image. Jordana ble to display) [address] [address] ED Clinical Summary Person Information Name: SHAZIA CHOU Wayne/[facility] Age: 32 Years : 1990 Sex: Female Language: Indonesian PCP: Jennie Durand DO Marital Status: Phone: [phone] MRN: Visit Id: Visit Reason: Headache; HEADACHE [...] 18:42:22 06/09/2023 18:42:22 06/09/2023 18:42:22 ADDRESS: [address] [place] [id number] PHYS DOC NOTES: MEDICAL INFORMATION: Prescriptions Given: [...] (at bedtime). PATIENT EDUCATION INFORMATION: Instructions: Paresthesia, Xtgq-du-Jvzx; Migraine Headache, Rzki-fh-Rxsq Follow up: With: Address: When: [facility] In 3 days 06/12/2023 With: Address: When: Jennie Robertson, Mic C, [facility] [address] [place] [address] Business (1) In 3 days 06/12/2023 DIAGNOSIS: 1:Headache; 2:Paresthesia of arm Normal [facility] ED Patient Education Noteon 06-09-2023 ED [...] liquor (44 mL). General instructions ? Take gfcn-ybq-bvugaza and prescription medicines only as told by [...] provider. Document Revised: 05/12/2022 Document Reviewed: 05/12/2022 [employer] Patient Education ? 2022 [employer] Migraine Headache A migraine headache is [...] ? Tiredness. (more content not included)... Normal [facility] ED Patient Summaryon 023 ED Patient Summary (Inserted Image. Jordana ble to display) [address] [address] Patient Discharge Instructions Person Information Name: SHAZIA CHOU Age: 32 Years Arrival Date: 06/09/2023 15:33:36 Discharge Diagnosis: 1:Headache; 2:Paresthesia of arm Primary Care Physician: Jennie Durand DO Provider Information Primary Provider: Alexis Shukla DO Advanced Recreation Leader:None The exam and treatment you received in the Emergency Department were for an urgent problem and are not intended as complete care. It is important that you follow up with a doctor, nurse practitioner, or physician?s assistant dean for ongoing care. If your symptoms become [...] days 06/12/2023 With: Address: When: Jennie Durand [address] [place] [address] Ailyn, Mic , [address] [address] [facility] () In 3 days 06/12/2023 In the event that this physician does not participate in your insurance network, please consult with your insurance company to find a nearby participating provider. Patient Education Materials: Paresthesia, Nnwx-sr-Fypx; Migraine Headache, Mohn-wv-Oads A MESSAGE TO ALL PATIENTS REGARDING OPIOIDS PRESCRIPTION OPIOIDS: WHAT YOU NEED TO KNOW Prescription opioids can be used to help relieve golwizaa-fa-tjixkh pain and are often prescribed following a [...] from the Food and Drug Administration (www.fda.gov/Drugs/Reso Serafinu). ? Visit www.cdc.gov/drugoverdos e to learn about the risks of opioids abuse and overdose. ? If you believe you may be struggling with addiction, tell (more content not included)... Normal [facility] Ethanolon 06-09-2023 Ethanol [Mass/Vol] mg/dL Normal <=7 [facility] Comment on above: Performed By: #### 2 780497 ####[facility] [address] [place] [address] Salicylateon 06-09-2023 Salicylates [Mass/Vol] mg/dL Low 6-29 [facility] Comment on above: Performed By: #### 2 671599, 9913702, 7590961, 5050369, 2111216, 20770124 ####[facility] [address] [place] [address] U Drug Screenon 06-09-2023 Amphetamines Screen method >1000 ng/mL Ql (U) Negative Normal Negative [facility] Comment on above: Result Comment: Nega tive Cutoff: <1000 ng/mL Performed By: #### 2 678999 ####[facility] [address] [place] [facility] [place] [address] Barbiturates Screen Ql (U) Negative Normal Negative [facility] Comment on above: Result Comment: Nega tive Cutoff: <200 ng/mL Performed By: #### 2 330319 ####[facility] [address] [place] [facility] [place] [address] Benzodiazepines Ql (U) Negative Normal Negative [facility] Comment on above: Result Comment: Nega tive Cutoff: <200 ng/mL Performed By: #### 2 531636 ####[facility] [address] [place] [address] Cocaine Ql (U) Negative Normal Negative [facility] Comment on above: Result Comment: Nega tive Cutoff: <300 ng/mL Performed By: #### 2 291016 ####[facility] [address] [place] [address] Opiates Screen Ql (U) Negative Normal Negative Fis [facility] Comment on above: Result Comment: Nega tive Cutoff: <300 ng/mL Performed By: #### 2 930150 ####[facility] [address] [place] [address] Phencyclidine Screen method >25 ng/mL Ql (U) Negative Normal Negative [facility] Comment on above: Result Comment: Nega tive Cutoff: <25 ng/mL These drug screen results are to be used for medical (i.e., treatment) purposes only. Unconfirmed drug screening results must not be used for non-medical purposes (e.g., employment testing, legal testing). Performed By: #### 2 824304 ####[facility] [address] [place] [address] Tetrahydrocannabinol Screen method >50 ng/mL Ql (U) Negative Normal Negative [facility] Comment on above: Result Comment: Nega tive Cutoff: <50 ng/mL Performed By: #### 2 688627 ####[facility] [address] [place] [address] UA With Cult Reflexon 2022 Bilirubin Ql (U) Negative Normal Negative [facility] Comment on above: Performed By: #### 1 0693778 #### [facility] [address] [place] [address] Clarity (U) CLEAR Normal Clear [facility] Comment on above: Performed By: #### 1 7831692 #### [facility] [address] [place] [address] Color (U) YELLOW Normal Yellow [facility] Comment on above: Performed By: #### 1 1609459 #### [facility] [address] [place] [address] Crystals LM Ql (Urine sed) Present Normal [facility] Comment on above: Performed By: #### 1 5383740 #### [facility] [address] [place] [address] Epithelial cells.squamous LM.HPF (Urine sed) [#/Area] 0-2 Normal 0-2 [facility] Comment on above: Performed By: #### 1 0890298 #### [facility] [address] [place] [address] Glucose Test strip (U) [Mass/Vol] Negative Normal Negative [facility] Comment on above: Performed By: #### 1 9739569 #### [facility] [address] [place] [address] Hemoglobin Ql (U) Negative Normal Negative [facility] Comment on above: Performed By: #### 1 0687753 #### [facility] [address] [place] [address] Ketones (U) [Mass/Vol] Negative Normal Negative [facility] Comment on above: Performed By: #### 1 1021870 #### [facility] [address] [place] [address] [place].plasma/[place] .RBC (Bld) [Mass ratio] 0-3 Normal 0-3 [facility] Comment on above: Performed By: #### 1 7227408 #### [facility] [address] [place] [address] Nitrite Ql (U) Negative Normal Negative [facility] Comment on above: Performed By: #### 1 8956457 #### [facility] [address] [place] [address] pH (U) 6.0 [pH] Invalid Interpretation Code 5.0-9.0 [facility] Comment on above: Performed By: #### 1 1249998 #### [facility] [address] [place] [address] Protein (U) [Mass/Vol] Negative Normal Negative [facility] Comment on above: Performed By: #### 1 1788247 #### [facility] [address] [place] [address] Specific gravity (U) [Rel density] 1.010 Invalid Interpretation Code 1.005-1.030 [facility] Comment on above: Performed By: #### 1 1449185 #### [facility] [address] [place] [address] Type of Urine collection method Clean Catch Normal [facility] Comment on above: Performed By: #### 1 8560600 #### [facility] [address] [place] [address] Urobilinogen Qn (U) 0.2 {Lucila'U}/dL Normal 0.0-1.0 [facility] Comment on above: Performed By: #### 1 5105445 #### [facility] [address] [place] [address] WBC Auto Ql (U) Negative Normal Negative [facility] Comment on above: Performed By: #### 1 1929084 #### [facility] [address] [place] [address] WBC LM.HPF (Urine sed) [#/Area] 0-5 Normal 0-5 [facility] Comment on above: Performed By: #### 1 0949544 #### [facility] [address] [place] [address] eGFRon 06-09-2023 GFR/1.73 sq M.predicted among non-blacks MDRD (S/P/Bld) [Vol rate/Area] 121 mL/min/1.73 m2 Normal >=59 [facility] Comment on above: Order Comment: Order added by Discern Expert. Result Comment: Supercharger Mechanic gurpreet kidney disease could be indicated at eGFR's of less than 60 mL/min/1.73m2. Kidney failure is indicated at less than 15 mL/min/1.73m2. Performed By: #### 2 908616, 9642055, 4875064, 3573077, 3455182, 89689883 ####[facility] [address] [place] [address] Vit Aon 03-24-2023 Retinol [Mass/Vol] 42.9 microgram/dL Invalid Interpretation Code 18.9-57.3 [facility] Comment on above: Result Comment: Refe rence intervals for vitamin A determined from [facility] internal studies. Individuals with vitamin A less than 20 ug/dL are considered vitamin A deficient and those with serum concentrations less than 10 ug/dL are considered severely deficient. This test was developed and its performance characteristics determined by [facility]. It has not been cleared or approved by the Food and Drug Administration. Performed at: [address] [id number] MD Shorty Rodríguez Performed By: #### 2 450656, 08925227, 2292022, 1738644, 30867931, 26400336, 259038957, 6668505, 8518028, 67603527, 5307937, 0034789, 909211529, 24341212, 6602165, 7034366, 5992965, 1358019 ####[facility] [address] [place] [address] Vit B1on 03-24-2023 Thiamine (Bld) [Moles/Vol] 171.7 nmol/L Invalid Interpretation Code 66.5-200.0 [facility] Comment on above: Result Comment: This test was developed and its performance characteristics determined by [facility]. It has not been cleared or approved by the Food and Drug Administration. Performed at: [address] [id number] MD Shorty Rodríguez Performed By: #### 2 140508, 81333344, 8120829, 4700100, 37037449, 78264998, 642417994, 2167557, 0451455, 56165369, 7258155, 3877184, 992858082, 58485165, 3538283, 2046996, 9602666, 8512218 ####[facility] [address] [place] [address] Zinc Lvlon 03-24-2023 Zinc [Mass/Vol] 85 microgram/dL Invalid Interpretation Code 44-365 [facility] Comment on above: Result Comment: This test was developed and its performance characteristics determined by [facility]. It has not been cleared or approved by the Food and Drug Administration. Detection Limit = 5 Performed at: [facility] [id number] MD Shorty Rodríguez Performed By: #### 2 895163, 60389634, 4839853, 3770754, 37085484, 78733565, 169341741, 9390683, 1060135, 01750831, 4558436, 7864090, 007538157, 36717792, 1961749, 4187265, 8271177, 1479649 ####[facility] [address] [place] [address] PTH [place] 03-20-2023 Parathyrin.intact [Mass/Vol] 17 pg/mL Invalid Interpretation Code 1565 [facility] Comment on above: Result Comment: Perf ormed at: [facility] [id number] PhD Cordelia Madera Performed By: #### 1 [id number] ####[facility] [address] [place] [address] Auto Diffon 03-19-2023 Basophils/100 WBC (Bld) 1.1 % Normal 0.0-2.0 [facility] Comment on above: Order Comment: Order Added by Discern Expert. Performed By: #### 2 824141, 81198739, 2750950, 6101656, 90710601, 63721574, 451961334, 5097873, 9930088, 26896095, 1734430, 2289384, 786642648, 19634642, 6611863, 4779025, 2923322, 3961569 ####[facility] [address] [place] [address] Basophils/Leukocytes Auto (Bld) [Pure # fraction] 0.1 E9/L Normal 0.0-0.2 [facility] Comment on above: Order Comment: Order Added by Discern Expert. Performed By: #### 2 437304, 73806444, 3220708, 7919335, 97334951, 24508466, 780553946, 5504448, 7616924, 74395170, 2557020, 3384127, 133439424, 71797118, 1667022, 0824840, 7101847, 7186819 ####[facility] [address] [place] [address] Eosinophils/100 WBC (Bld) 4.1 % Normal 0.0-8.0 [facility] Comment on above: Order Comment: Order Added by Discern Expert. Performed By: #### 2 020208, 91467954, 2039948, 1977633, 70475751, 69235056, 173789618, 4906810, 6373397, 72134636, 9601928, 9668996, 776015436, 15819350, 4024173, 5036383, 2350285, 0079161 ####[facility] [address] [place] [address] Eosinophils/Leukocytes Auto (Bld) [Pure # fraction] 0.4 E9/L Normal 0.0-0.5 [facility] Comment on above: Order Comment: Order Added by Ilana Expert. Performed By: #### 2 721965, 23308382, 0531854, 1091150, 56661183, 41496689, 789968698, 0712953, 7367388, 81031780, 8661134, 7448390, 889070444, 93449513, 4000012, 5310801, 9795726, 6891566 ####[address] [place] [address] Lymphocytes/100 WBC (Bld) 20.5 % Normal 14.0-50.0 [facility] Comment on above: Order Comment: Order Added by Discern Expert. Performed By: #### 2 258508, 20919689, 0519720, 7208885, 20731689, 84236629, 471404304, 5760109, 9200715, 85992483, 7507473, 2911399, 963098634, 12085948, 2235198, 1839546, 1235890, 0281029 ####[address] [place] [address] Lymphocytes/Leukocytes Auto (Bld) [Pure # fraction] 2.1 E9/L Normal 1.0-4.0 [facility] Comment on above: Order Comment: Order Added by Discern Expert. Performed By: #### 2 140812, 81579452, 9515387, 1008480, 73506196, 44313788, 524509457, 3703665, 8305666, 61731215, 1802732, 9274415, 817147111, 67343722, 4150037, 7936034, 5329331, 0839879 ####[address] [place] [address] Monocytes/100 WBC (Bld) 7.6 % Normal 4.0-14.0 [facility] Comment on above: Order Comment: Order Added by Discern Expert. Performed By: #### 2 602394, 53757489, 3851034, 5686845, 33623564, 77915368, 955837362, 1068819, 8769087, 82040254, 1057423, 2600959, 224990661, 93322310, 2113126, 5430894, 2759930, 5528266 ####[address] [place] [address] Monocytes/Leukocytes Auto (Bld) [Pure # fraction] 0.8 E9/L Normal 0.2-1.0 [facility] Comment on above: Order Comment: Order Added by Discern Expert. Performed By: #### 2 478319, 27879099, 5805912, 4243320, 37549730, 78292196, 612936515, 5962171, 0209419, 12531841, 6933462, 6409144, 474117701, 58361586, 0213202, 5398829, 2444777, 9284949 ####[facility] [address] [place] [address] Neutrophils/100 WBC (Bld) 66.7 % Normal 36.0-75.0 [facility] Comment on above: Order Comment: Order Added by Discern Expert. Performed By: #### 2 209243, 10674878, 8528896, 9183649, 13920696, 37206941, 282657767, 6630218, 0860204, 39433698, 4156095, 2559723, 073910665, 71284553, 0554405, 0511284, 5220270, 5709148 ####[facility] [address] [place] [address] Neutrophils/Leukocytes Auto (Bld) [Pure # fraction] 6.8 E9/L Normal 2.0-7.5 [facility] Comment on above: Order Comment: Order Added by Discern Expert. Performed By: #### 2 525002, 63750611, 4348266, 2540039, 82238717, 19204998, 849473103, 8214240, 7098424, 92971823, 3342950, 3911740, 510470985, 25588372, 1718407, 4038105, 5204760, 9363006 ####[address] [place] [address] CBC w/ Auto Diffon 3 Erythrocyte distribution width (RBC) [Ratio] 16.0 % High 10.9-14.2 [facility] Comment on above: Performed By: #### 2 893293, 21863865, 1261305, 8633070, 58974877, 88676488, 408554991, 7060084, 9151148, 56306505, 9830460, 4551379, 989648274, 37036074, 1220835, 6755966, 0809727, 5609472 ####[address] [place] [address] Hematocrit (Bld) [Volume fraction] 37.1 % Normal 34.0-46.0 [facility] Comment on above: Performed By: #### 2 294604, 56746849, 4097479, 4265416, 23624444, 10075585, 638110921, 2385702, 6182535, 97102326, 0352125, 2399860, 764684751, 35376992, 8349503, 7044226, 4820106, 7914789 ####[facility] [address] [place] [address] Hemoglobin (Bld) [Mass/Vol] 12.6 g/dL Normal 12.0-16.0 [facility] Comment on above: Performed By: #### 2 953936, 45356660, 6994939, 7318560, 04852181, 90837590, 793669265, 4899609, 4896528, 94085550, 8821662, 7939422, 240138422, 61720122, 5017533, 8670909, 3019355, 3090886 ####[facility] [address] [place] [address] MCH (RBC) [Entitic mass] 31.2 pg Normal 27.0-34.0 [facility] Comment on above: Performed By: #### 2 569298, 40944180, 2366770, 1984642, 98857800, 17211916, 025808211, 0911443, 9920691, 29041255, 4397618, 8523828, 073464328, 08567261, 3673598, 2412520, 0388607, 7713696 ####[facility] [address] [place] [address] MCHC (RBC) [Mass/Vol] 33.9 g/dL Normal 31.4-36.0 [facility] Comment on above: Performed By: #### 2 759604, 24302097, 3495043, 3018661, 03057044, 61664537, 932621351, 8085047, 4535159, 36146500, 5017031, 5759752, 921201311, 20763280, 5277084, 5368142, 2739359, 9407337 ####[facility] [address] [place] [address] MCV (RBC) [Entitic vol] 92.0 fL Normal 80.0-100.0 [facility] Comment on above: Performed By: #### 2 329214, 12035102, 3710280, 7353701, 49683840, 47493023, 445771275, 2085381, 9901957, 82643624, 6993035, 6614982, 938448184, 13418101, 7161079, 9362704, 6249629, 1142645 ####[address] [place] [address] Platelet mean volume (Bld) [Entitic vol] 9.8 fL Normal 6.4-10.8 [facility] Comment on above: Performed By: #### 2 181733, 54230544, 5675938, 2052985, 57132803, 42866913, 528287274, 3826374, 9661961, 38181789, 2451872, 3025112, 730018744, 37611233, 0129616, 0525501, 6338935, 2300840 ####[address] [address] Platelets (Bld) [#/Vol] 369.0 E9/L Normal 150.0-500.0 [facility] Comment on above: Performed By: #### 2 998116, 94439238, 3725426, 5859739, 05982250, 22044249, 620832556, 0130129, 6286935, 52621693, 7719005, 8380158, 266206729, 17670277, 4699687, 3582310, 3892632, 8705312 ####[address] [address] RBC (Bld) [#/Vol] 4.0 E12/L Low 4.3-5.9 [facility] Comment on above: Performed By: #### 2 503470, 44429508, 9519433, 1645318, 58955736, 99889766, 854934478, 4951707, 0864341, 37615100, 9601981, 2748186, 555789994, 05330334, 6967255, 8491750, 5635447, 4396303 ####[facility] [address] [place] [address] WBC corrected for nucl RBC Auto (Bld) [#/Vol] 10.1 E9/L Normal 4.0-11.0 [facility] Comment on above: Performed By: #### 2 647388, 56321225, 9633534, 0393249, 30051216, 39594460, 380547402, 0436550, 4038748, 73781313, 7326805, 3773798, 955929872, 51018083, 8741235, 9101448, 2342152, 5679669 ####[facility] [address] [place] [address] CHEMISTRYOrdered By: SYSTEM SYSTEM on 03-19-2023 25-hydroxyvitamin [...] Remisol Triglyceride [Mass/Vol] 69 mg/dL Normal <=149mg/dL FT Remisol TSH Qn 0.61 m[IU]/L Normal 0.34 - 5.60 mcIU/mL FT Remisol Urea nitrogen [Mass/Vol] 12 mg/dL Normal 5 - 21 mg/dL FT Remisol Urea nitrogen/Creatinine [Mass ratio] 17 mg/mg Normal 10 - 20 FT Remisol CHEMISTRYOrdered By: Torres Ulloa on 03-19-2023 HbA1c (Bld) [Mass fraction] 5.8 % Normal <=5.9% [employer] [facility] [employer] ChemAutoSS CMPon 03-19-2023 Albumin [Mass/Vol] 4.0 g/dL Normal 3.3-5.0 [facility] Comment on above: Performed By: #### 2 535390, 86323540, 7568818, 1904107, 90256661, 22684708, 094335938, 7671124, 7332269, 86291391, 0766225, 7405001, 301378980, 72674809, 8840054, 2683551, 9477374, 3215405 ####[facility] [address] [place] [address] Albumin/Globulin (S) [Mass conc ratio] 1.2 Normal 1.1-2.2 [facility] Comment on above: Performed By: #### 2 072086, 44206837, 0840299, 6793852, 88932283, 36447531, 572260143, 1839284, 1140061, 30896814, 8148166, 3544809, 697212417, 81646965, 8898076, 2005218, 1596113, 7060315 ####[facility] [address] [place] [address] ALP [Catalytic activity/Vol] 61 Int._Unit/L Normal 21-98 [facility] Comment on above: Performed By: #### 2 057863, 05509899, 6316224, 7375283, 40705087, 43863364, 174656246, 1702508, 4668273, 84145107, 0124917, 9490716, 807213737, 30296614, 0572779, 9325122, 2144269, 2597734 ####[facility] [address] [place] [address] ALT No additional P-5'-P [Catalytic activity/Vol] 17 Int._Unit/L Normal 6-46 [facility] Comment on above: Performed By: #### 2 060657, 25811705, 0260511, 3278259, 48860275, 06321308, 929125538, 4769210, 4140132, 20868598, 8270152, 7044886, 069535570, 87261182, 8282586, 2128506, 0680712, 2146492 ####[address] [place] [address] Anion gap [Moles/Vol] 9 mmol/L Normal 6-16 [facility] Comment on above: Performed By: #### 2 213607, 80435816, 5771554, 7426163, 02551194, 02331982, 334328419, 9203636, 7744892, 84001981, 6438222, 8526325, 984328991, 40750135, 0270098, 4410561, 9153118, 7427886 ####[address] [place] [address] AST [Catalytic activity/Vol] 20 Int._Unit/L Normal 5-43 [facility] Comment on above: Performed By: #### 2 969901, 41911211, 7222304, 8597094, 47111127, 90968987, 656564604, 9622169, 7162307, 71161916, 5706576, 4878902, 517076141, 84448266, 3836607, 5670923, 5773296, 8615766 ####[facility] [address] [place] [address] Bilirubin [Mass/Vol] 0.4 mg/dL Normal 0.0-1.1 [facility] Comment on above: Performed By: #### 2 424981, 03418096, 9827175, 9698195, 24204353, 47663251, 171269559, 5284777, 1585265, 04215113, 1008213, 6530964, 648171192, 17273143, 9284072, 7130022, 2075599, 6899663 ####[facility] [address] [place] [address] Calcium [Mass/Vol] 9.2 mg/dL Normal 8.9-11.1 [facility] Comment on above: Performed By: #### 2 222216, 65064394, 7233260, 3446895, 45229022, 58130507, 999096817, 6452259, 9220868, 25007683, 6960435, 0791312, 111740635, 90387448, 0638093, 2469007, 7823692, 7232695 ####[facility] [address] [place] [address] Chloride [Moles/Vol] 113 mmol/L High 101-111 [facility] Comment on above: Performed By: #### 2 533484, 44112634, 4196548, 3148435, 94667692, 30006918, 604244906, 0834072, 5276690, 18679243, 3254030, 8647664, 535362193, 32021821, 4391051, 5826426, 1573005, 5706975 ####[facility] [address] [place] [address] CO2 [Moles/Vol] 22 mmol/L Normal 21-31 [facility] Comment on above: Performed By: #### 2 902371, 36209056, 0281279, 5083718, 87845355, 19150965, 171700566, 8094210, 2867131, 30601055, 7702179, 4704171, 946103582, 17097041, 6257969, 4684423, 8125067, 4592450 ####[facility] [address] [place] [address] Creatinine [Mass/Vol] 0.7 mg/dL Normal 0.5-1.3 [facility] Comment on above: Performed By: #### 2 401574, 82606548, 2465872, 3576413, 54922616, 22984256, 358430818, 5539341, 7621958, 23960619, 6605310, 9097921, 777471751, 04868377, 9167352, 0769736, 9736010, 0234145 ####[facility] [address] [place] [address] Globulin (S) [Mass/Vol] 3.2 g/dL Normal 1.4-4.0 [facility] Comment on above: Performed By: #### 2 780420, 77302444, 0491207, 5428655, 52160847, 47466520, 155368527, 2532960, 7893884, 26699008, 5625712, 8988506, 781742869, 14662810, 4293753, 9427741, 9830205, 2924539 ####[facility] [address] [place] [address] Glucose [Mass/Vol] 103 mg/dL Normal 55-199 [facility] Comment on above: Result Comment: If t his glucose result represents a fasting glucose, interpretation should refer to the following reference range: 55-99 mg/dL Performed By: #### 2 116818, 88501924, 7081107, 3374639, 95594921, 74726464, 228789480, 6278862, 0382183, 79277566, 9828003, 7936370, 475720415, 58141668, 8156780, 5702135, 4950591, 0581215 ####[facility] [address] [place] [address] Potassium [Moles/Vol] 3.8 mmol/L Normal 3.5-5.3 [facility] Comment on above: Performed By: #### 2 425700, 72031606, 1187369, 8038441, 37409628, 11716305, 841153353, 6855803, 1030481, 23977168, 4012192, 0449967, 880092960, 25819741, 3360050, 1035068, 2759720, 8463033 ####[facility] [address] [place] [address] Protein [Mass/Vol] 7.2 g/dL Normal 6.0-7.8 [facility] Comment on above: Performed By: #### 2 768822, 77625460, 6017822, 4126874, 43939374, 51163831, 532905777, 8719859, 4413119, 01452565, 9922805, 1824547, 640839364, 33029391, 6646649, 8005024, 9331029, 9239496 ####[facility] [address] [place] [address] Sodium [Moles/Vol] 140 mmol/L Normal 135-145 [facility] Comment on above: Performed By: #### 2 953630, 82266699, 8009309, 7948209, 92374347, 72329984, 958854597, 7339187, 5994316, 42401979, 0406582, 0539996, 868623970, 26663190, 2986943, 3450974, 3290332, 5419163 ####[facility] [address] [place] [address] Urea nitrogen [Mass/Vol] 12 mg/dL Normal 5-21 [facility] Comment on above: Performed By: #### 2 212369, 10157309, 2825801, 5955322, 98838678, 17698476, 578434081, 0894943, 4853384, 98800241, 9147587, 3290077, 541571957, 90938325, 6492835, 5346965, 1161183, 1461674 ####[facility] [address] [place] [address] Urea nitrogen/Creatinine [Mass ratio] 17 No Units Normal 10-20 [facility] Comment on above: Performed By: #### 2 122538, 33461116, 5076602, 7994529, 19136498, 17473985, 846388694, 2651922, 4409398, 51321441, 3986365, 2398700, 685649562, 00415054, 3026879, 7238526, 6776127, 3742836 ####[facility] [address] [place] [address] Consent for Treatmenton Consent for Treatment [id number] [id number]#1.00C D:[address] [facility] Ferritinon 03-19-2023 Ferritin [Mass/Vol] 6 ng/mL Low 11-307 [facility] Comment on above: Result Comment: NORM ALS MEN <30 YRS 16-132 ng/mL MEN >30 YRS 8-338 ng/mL WOMEN (PREMEN) 6-104 ng/mL WOMEN (POSTMEN) 12-210 ng/mL Performed By: #### 2 037930, 43902483, 2456000, 4360486, 76346149, 02306448, 354337928, 7422333, 8468615, 63410348, 9642408, 8980964, 670462939, 18241735, 0199052, 5954632, 9126839, 9753131 ####[facility] [address] [place] [address] Folateon 03-19-2023 Folate [Mass/Vol] 15.6 ng/mL Normal >=6.7 [facility] Comment on above: Performed By: #### 2 855006, 48154323, 8240905, 1735832, 52387352, 43921613, 595368485, 8069426, 4852699, 87566744, 2176091, 4737455, 994994668, 58487049, 0468689, 2342114, 4831311, 7220586 ####[facility] [address] [place] [address] Free T4on 03-19-2023 Free T4 [Mass/Vol] 0.88 ng/dL Normal 0.58-1.64 [facility] Comment on above: Performed By: #### 2 027154, 61989630, 3848579, 8029668, 73934944, 62744122, 875096510, 1023642, 1217151, 07397643, 6190968, 7155622, 324401208, 54964526, 1486434, 1656290, 1074137, 1291295 ####[facility] [address] [place] [address] HEMATOLOGYOrdered By: SYSTEM SYSTEM on 03-19-2023 Basophils/100 [...] Normal 4.0 - 11.0 E9/L [facility] HemeAutoSS CkuH6obd 03-19-2023 HbA1c (Bld) [Mass fraction] 5.8 % Normal <=5.9 [facility] Comment on above: Performed By: #### 2 010008, 52385612, 9461719, 6661972, 42020163, 67574977, 886957743, 4753102, 8500071, 84958724, 2490264, 3835930, 727141402, 60835182, 5625627, 8418434, 6533520, 5752353 ####[facility] [address] [place] [address] Ironon 03-19-2023 Iron [Mass/Vol] 69 microgram/dL Normal 35-153 [facility] Comment on above: Performed By: #### 2 928051, 76701374, 4233335, 9374685, 29723244, 24583624, 485528084, 3573625, 1816653, 18826976, 8606715, 6872215, 029696259, 36630217, 9568777, 3778457, 8972750, 0539194 ####[facility] [address] [place] [address] Lipid Panelon 03-19-2023 Cholesterol [Mass/Vol] 167 mg/dL Normal 120-200 [facility] Comment on above: Performed By: #### 2 063032, 12001457, 2037464, 7235972, 47675022, 69857064, 558377028, 1000990, 1764209, 84061399, 7829953, 2794655, 052622687, 05742139, 7963896, 6190268, 5893678, 6554271 ####[facility] [address] [place] [address] Cholesterol in HDL [Mass/Vol] 72 mg/dL Invalid Interpretation Code [facility] Comment on above: Result Comment: HDL > or equal to 60 mg/dL: Low cardiovascular risk HDL < 40 mg/dL : High cardiovascular risk Performed By: #### 2 143884, 14298940, 1163895, 2435727, 51366104, 25059170, 757545098, 9149323, 3392681, 43048841, 0901635, 1279144, 813733567, 31775552, 0157712, 1372630, 7736387, 8691258 ####[facility] [address] [place] [address] Cholesterol in LDL [Mass/Vol] 72 mg/dL Normal <=129 [facility] Comment on above: Performed By: #### 2 378593, 65268106, 2468093, 0638460, 15444139, 83254099, 544326906, 2583594, 1858424, 19854847, 9512230, 1647926, 548708334, 78585902, 1536846, 1984075, 0755838, 1257260 ####[facility] [address] [place] [address] Cholesterol in VLDL [Mass/Vol] 14 mg/dL Normal 7-40 [facility] Comment on above: Performed By: #### 2 857666, 11556196, 9089441, 6146822, 38553653, 96710203, 863025922, 1372417, 7031980, 46852018, 9054100, 6070209, 663475562, 25141088, 5074278, 2396844, 5121533, 1386080 ####[facility] [address] [place] [address] Triglyceride [Mass/Vol] 69 mg/dL Normal <=149 [facility] Comment on above: Performed By: #### 2 655610, 55770727, 1533005, 0337444, 25877104, 67764700, 621772693, 2096920, 9368600, 49733309, 9282443, 2723305, 446438858, 23365726, 8840432, 0865967, 7426613, 8414862 ####[facility] [address] [place] [address] Magnesiumon 03-19-2023 Magnesium [Mass/Vol] 2.0 mg/dL Normal 1.3-2.4 [facility] Comment on above: Performed By: #### 2 209508, 15547111, 2431011, 7099870, 37962716, 16970342, 800405699, 7990003, 6097799, 28186838, 5425596, 2428590, 724788908, 65476361, 0860020, 3100093, 8945592, 8241110 ####[facility] [address] [place] [address] Physician Orderon 03-19-2023 Physician Order [id number] [id number]#1.00 CD:[address] [facility] TIBC Calculatedon 03-19-2023 Iron binding capacity [Mass/Vol] 423 microgram/dL High 250-400 [facility] Comment on above: Performed By: #### 2 788381, 40403685, 3978994, 7795230, 53802425, 54231975, 921477655, 3145658, 5940347, 64144533, 2264307, 4924538, 662837420, 70305683, 7356801, 8771707, 7115015, 5277141 ####[facility] [address] [place] [address] Transferrin [Mass/Vol] 302 mg/dL Normal 200-370 [facility] Comment on above: Performed By: #### 2 831143, 79121064, 7463094, 2403755, 91922653, 58088278, 773891689, 9215471, 7694430, 70642435, 9762761, 8411534, 956197252, 63872810, 7718014, 8912075, 8774681, 9901514 ####[facility] [address] [place] [address] TSHon 03-19-2023 TSH Qn 0.61 m[IU]/L Normal 0.34-5.60 [facility] Comment on above: Performed By: #### 2 827084, 00075709, 8279654, 7011727, 18186934, 85776480, 177533877, 3219556, 1743537, 52890063, 4936914, 0319562, 114635421, 61226574, 9200043, 6390949, 6135811, 2319382 ####[facility] [address] [place] [address] Vit B12on 03-19-2023 Cobalamin (Vitamin B12) [Mass/Vol] 357 pg/mL Normal 50-1500 [facility] Comment on above: Performed By: #### 2 033253, 73749180, 1198709, 2973376, 39024985, 83297815, 539267562, 0113888, 0101142, 20456039, 3795246, 7527473, 250552017, 04827640, 8835546, 0347288, 5184245, 7453426 ####[facility] [address] [place] [address] Vitamin D 25 Hydroxyon 03-19 25-hydroxyvitamin D3 [Mass/Vol] 43.1 ng/mL Normal 30.0-100.0 [facility] Comment on above: Result Comment: Vit alberto D deficiency has been defined as a level of serum 25-OH vitamin D less than 20 ng/mL (1,2) by the [employer] and an Endocrine Society practice guideline. The Endocrine Society further defined vitamin D insufficiency as a level between 21 and 29 ng/mL (2). 1. IOM ([employer]). 2010. Dietary reference intakes for calcium and D. [place]: The National Academies Press. 2. Willard MF, Luisa NC, Nestor MALDONADO, et al. Evaluation, treatment, and prevention of vitamin D deficiency: an Endocrine Society clinical practice guideline. JCEM. 2010; 96 (7):1911-30. Performed By: #### 2 905533, 39356632, 2417854, 2067261, 63407135, 40192069, 073863857, 5643084, 2618876, 22039596, 5211179, 3098993, 708046833, 78859993, 5690622, 9435273, 3171838, 8075525 ####[facility] [address] [place] [address] eGFRon 03-19-2023 GFR/1.73 sq M.predicted among non-blacks MDRD (S/P/Bld) [Vol rate/Area] 116 mL/min/1.73 m2 Normal >=59 [facility] Comment on above: Order Comment: Order added by Discern Expert. Result Comment: Supercharger Mechanic gurpreet kidney disease could be indicated at eGFR's of less than 60 mL/min/1.73m2. Kidney failure is indicated at less than 15 mL/min/1.73m2. Performed By: #### 2 [id number], [id number], [id number], [id number], 14873213, [id number], [id number], 6553284, 6918721, 49004304, 7321320, 8098582, [id number], 01857623, 3040584, 4302668, 6253008, 5414699 ####[facility] [address] [place] [address] MRA Head veins WO and W cont rast Ramón 01-29-2023 IMPRESSION: Unremarkable MRV head with and without contrast. Mine Engineering Supervisor: PSCB Transcribe Date/Time: Jan 29 2023 2:40P Dictated by : JENNIFER RUVALCABA MD This examination was interpreted and the report reviewed and electronically signed by: JENNIFER RUVALCABA MD on Jan 29 2023 2:44PM [facility] DIVISION OF RADIOLOGY * * *Final Report* * * DATE OF EXAM: Jan 29 2023 1:10PM LN 0336 - MRV BRAIN WO/W IVCON / PROCEDURE REASON: Idiopathic intracranial hypertension * * * * Physician Interpretation * * * * EXAMINATION: MRV BRAIN WO/W IVCON CLINICAL HISTORY: Idiopathic intracranial hypertension. TECHNIQUE: Intracranial 2-D upwt-ee-avkmhw and postcontrast MRV with post-processing performed at the modality and 2D multiplanar and 3D maximum intensity projections were created, reviewed and archived. Contrast dose: 17 mL Dotarem administered intravenously. MQ: MRAB_4 COMPARISON: None. RESULT: INTRACRANIAL MRV: There is no evidence of significant narrowing, occlusion, or thrombosis of the dural venous sinuses. Note is made of a partially empty sella. DIVISION OF RADIOLOGY Provider, [facility]naz [facility] - 01/29/2023 * * *Final Report* * * DATE OF EXAM: Jan 29 2023 1:10PM LNM 0336 - MRV BRAIN WO/W IVCON / PROCEDURE REASON: Idiopathic intracranial hypertension * * * * Physician Interpretation * * * * EXAMINATION: MRV BRAIN WO/W IVCON CLINICAL HISTORY: Idiopathic intracranial hypertension. TECHNIQUE: Intracranial 2-D aeao-im-yqflvd and postcontrast MRV with post-processing performed at [...] Unremarkable MRV head with and without contrast. Mine Engineering Supervisor: WILLIAM Transcribe Date/Time: Jan 29 2023 2:40P Dictated by : JENNIFER RUVALCABA MD This examination was interpreted and the report reviewed and electronically signed by: JENNIFER RUVALCABA MD on Jan 29 2023 2:44PM EST [facility] Radiology Study observation (narrative) [facility] MRA Head veins WO and W cont rast IVOrdered By: [facility] Provider on 01-29-2023 [facility] CHEMISTRYOrdered By: SYSTEM SYSTEM on 01-15-2023 Albumin [...] PM) Normal Negative [facility] UA Auto SS [place].plasma/[place] .RBC (Bld) [Mass ratio] 0-3 /HPF Normal [...] PM) Invalid Interpretation Code 1.005 - 1.030 [employer] UA Auto SS UA Spec Desc Clean Catch (01/15/23 12:51 PM) Normal [facility] UA Auto SS Urobilinogen Qn (U) [id number] {Lucila'U}/dL Normal 0.0 - 1.0 EU/dL [facility] UA Auto SS WBC Auto Ql (U) 1+ *ABN* (01/15/23 12:51 PM) Invalid Interpretation Code Negative [facility] UA Auto SS WBC LM.HPF (Urine sed) [#/Area] 0-5 /HPF Normal 0-5/HPF [facility] UA Auto SS BLOOD BANKOrdered By: Myrna Contreras on 12-05-2022 ABO/Rh Interp Negative Invalid Interpretation Code [facility] [employer] BB Subsection ABSC Gel Interp Negative (12/05/22 7:24 AM) Normal [employer] BB Subsection URINALYSISOrdered By: Kimberli Martin on [...] AM) Normal Negative [facility] UA Auto SS [place].plasma/[place] .RBC (Bld) [Mass ratio] 0-3 /HPF Normal [...] AM) Invalid Interpretation Code 1.005 - 1.030 [employer] UA Auto SS UA Spec Desc Catheter (12/05/22 10:05 AM) Normal [employer] UA Auto SS Urobilinogen Qn (U) [id number] {Lucila'U}/dL Normal 0.0 - 1.0 EU/dL [facility] UA Auto SS WBC Auto Ql (U) Negative (12/05/22 10:05 AM) Normal Negative [employer] UA Auto SS WBC LM.HPF (Urine sed) [#/Area] 0-5 /HPF Normal 0-5/HPF [employer] UA Auto SS CHEMISTRYOrdered By: SYSTEM SYSTEM [...] rate/Area] mL/min/1.73 m2 Normal >=59mL/min/1 .73 m2 [employer] Chem S GFR/1.73 sq M.predicted among non-blacks MDRD (S/P/Bld) [Vol rate/Area] mL/min/1.73 m2 Normal >=59mL/min/1 .73 m2 [employer] [facility] [employer] Chem S Potassium [Moles/Vol] 3.6 mmol/L Normal [...] CNOV Office Visit (NEADFV ) SHAZIA CHOU ([id number]) 1990 F Date Time Provider Department 11/20/22 8:00 AM BRIANNA ALVAREZHERNESTOMarina DIXONURVASHI During your visit today, we recorded the following information about you: Pulse Blood pressure Weight Height 67/minute 137/81 85.7 kg 1.702 m Last Period 10/23/22 Eileen Alvarez MD 11/20/2022 10:33 AM Signed [facility] New Patient Evaluation Consulting Provider: SELF Individuals who were included in, or assisted with the encounter were: Shazia Chou Eileen Alvarez MD Chief Complaint/Issues: hSazia Chou is a 31 year old R handed female w PMH HTN, depression, recently diagnosed idiopathic intracranial hypertension, EtOH drinking, H gastric bypass surgery w 100lb weight loss, 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 She has never seen an title insurance examiner. CSF protein 24, Glu 55, Pro 28, [...] congenital deformity, seen in the [facility] for: 1. [...] she agreed. She needs to follow with title insurance examiner every 6 months. In some patients with intracranial hypertension, there might be a concurrent transverse sinus stenosis and transverse sinus stenting may resolve the symptoms. I will do MRV. --HTN --H depression --Headache: there are a (more content not included)... Normal [facility] CBC AUTO DIFFon 10-30-2022 BASO # 0.0 103/ul Normal 0.0-0.[address] [facility] Comment on above: Performed By: #### C JENNIE PATRICK LIPA #### [facility] [address] [place] [address] Dr. Manuel Sandhu Basophils/100 WBC (Bld) 0.5 % Normal 0.2-2.[address] [facility] Comment on above: Performed By: #### C JENNIE PATRICK LIPA #### [facility] [address] [place] [address] Dr. Manuel Sandhu EO # 0.1 103/ul Normal 0.0-0.[address] [facility] Comment on above: Performed By: #### C JENNIE PATRICK LIPA #### [facility] [address] [place] [address] Dr. Manuel Sandhu Eosinophils/100 WBC (Bld) 1.6 % Normal 0.9-7.[address] [facility] Comment on above: Performed By: #### C JENNIE PATRICK LIPA #### [facility] [address] [place] [address] Dr. Manuel Sandhu Erythrocyte distribution width (RBC) [Ratio] 13.8 % Normal 11.0-15.[address] [facility] Comment on above: Performed By: #### C JENNIE PATRICK LIPA #### [facility] [address] [place] [address] Dr. Manuel Sandhu Hematocrit (Bld) [Volume fraction] 38.7 % Normal 36.0-48.[address] [facility] Comment on above: Performed By: #### C JENNIE PATRICK LIPA #### [facility] [address] [place] [address] Dr. Manuel Sandhu Hemoglobin (Bld) [Mass/Vol] 12.9 g/dL Normal 12.0-16.[address] [facility] Comment on above: Performed By: #### C JENNIE PATRICK LIPA #### [facility] [address] [place] [address] Dr. Manuel Sandhu IG # 0.03 10e3/ul Normal 0.00-0.[address] [facility] Comment on above: Performed By: #### C JENNIE PATRICK, LIPA #### [facility] [address] [place] [address] Dr. Manuel Sandhu IG % 0.4 % Normal 0.0-0.[address] [facility] Comment on above: Performed By: #### C CELINA JENNIE, LIPA #### [facility] [address] [place] [address] Dr. Manuel Sandhu LYMPH # 2.1 103/ul Normal 1.2-3.[address] [facility] Comment on above: Performed By: #### C CELINA JENNIE, LIPA #### [facility] [address] [place] [address] Dr. Manuel Sandhu Lymphocytes/100 WBC (Bld) 25.1 % Normal 20.5-60.[address] [facility] Comment on above: Performed By: #### C CELINA JENNIE, LIPA #### [facility] [address] [place] [address] Dr. Manuel Sandhu MANUAL DIFF REQ NO Normal [facility] Comment on above: Performed By: #### C CELINA JENNIE, LIPA #### [facility] [address] [place] [address] Dr. Manuel Sandhu MCH (RBC) [Entitic mass] 32.0 pg Normal 26.7-34.[address] [facility] Comment on above: Performed By: #### C CELINA JENNIE, LIPA #### [facility] [address] [place] [address] Dr. Manuel Sandhu MCHC (RBC) [Mass/Vol] 33.3 g/dL Normal 29.9-35.[address] [facility] Comment on above: Performed By: #### C CELNIA JENNIE, LIPA #### [facility] [address] [place] [address] Dr. Manuel Sandhu MCV (RBC) [Entitic vol] 96.0 fL Normal 81.0-99.[address] [facility] Comment on above: Performed By: #### C JENNIE PATRICK, LIPA #### [facility] [address] [place] [address] Dr. Manuel Sandhu MONO # 0.5 103/ul Normal 0.3-0.[address] [facility] Comment on above: Performed By: #### C MP JENNIE, LIPA #### [facility] [address] [place] [address] Dr. Manuel Sandhu Monocytes/100 WBC (Bld) 5.7 % Normal 1.7-12.[address] [facility] Comment on above: Performed By: #### C MP JENNIE, LIPA #### [facility] [address] [place] [address] Dr. Manuel Sandhu NEUT # 5.6 103/ul Normal 1.4-6.[address] [facility] Comment on above: Performed By: #### C JENNIE PATRICK, LIPA #### [facility] [address] [place] [address] Dr. Manuel Sandhu Neutrophils/100 WBC (Bld) 66.7 % Normal 43.0-75.0 [facility] Comment on above: Performed By: #### C JENNIE PATRICK, LIPA #### [facility] [address] [place] [address] Dr. Manuel Sandhu Platelet mean volume (Bld) [Entitic vol] 10.9 fL Normal 9.5-13.[address] [facility] Comment on above: Performed By: #### C JENNIE PATRICK, LIPA #### [facility] [address] [place] [address] Dr. Manuel Sandhu PLT 310 103/ul Normal 150-450 [facility] Comment on above: Performed By: #### C CELINA JENNIE, LIPA #### [facility] [address] [place] [address] Dr. Manuel Sandhu RBC 4.03 106/ul Critically low 4.20-5.40 [facility] Comment on above: Performed By: #### C CELINA JENNIE, LIPA #### [facility] [address] [place] [address] Dr. Manuel Sandhu WBC 8.4 103/ul Normal 4.0-11.[address] [facility] Comment on above: Performed By: #### C MP, JENNIE, LIPA #### [facility] [address] [address] [address] Manuel PELAYO URINE PROFILEon 3 Bilirubin Ql (U) Negative Normal NEGATIVE [facility] Comment on above: Performed By: #### U MICRO, ERUR #### [facility] [address] [address] [address] Manuel Sandhu Clarity (U) CLEAR Normal CLEAR [facility] Comment on above: Performed By: #### U MICRO, ERUR #### [facility] [address] [place] [address] Dr. Manuel Sandhu Color (U) LT. YELLOW Normal YELLOW [facility] Comment on above: Performed By: #### U MICRO, ERUR #### [facility] [address] [place] [address] Dr. Manuel Sandhu ERUAHD A micrscopic examination will be performed if indicated. Normal [facility] Comment on above: Performed By: #### U MICRO, ERUR #### [facility] [address] [place] [address] Dr. Manuel Sandhu Glucose Ql (U) Negative Normal NEGATIVE [facility] Comment on above: Performed By: #### U MICRO, ERUR #### [facility] [address] [address] [address] Manuel Sandhu Hemoglobin Ql (U) LARGE Abnormal NEGATIVE [facility] Comment on above: Performed By: #### U MICRO, ERUR #### [facility] [address] [address] [address] Manuel Sandhu Ketones Ql (U) Negative Normal NEGATIVE [facility] Comment on above: Performed By: #### U MICRO, ERUR #### [facility] [address] [place] [address] Dr. Manuel Sandhu LEUKOCYTES TRACE Abnormal NEGATIVE [facility] Comment on above: Performed By: #### U MICRO, ERUR #### [facility] [address] [place] [address] Dr. Manuel Sandhu Nitrite Ql (U) Negative Normal NEGATIVE [facility] Comment on above: Performed By: #### U MICRO, ERUR #### [facility] [address] [place] [address] Dr. Manuel Sandhu pH (U) 6.5 [pH] Normal 5-[address] [facility] Comment on above: Performed By: #### U MICRO, ERUR #### [facility] [address] [place] [address] Dr. Manuel Sandhu SPEC GRAVITY <=1.005 Abnormal 1.005-<=1.[address] [facility] Comment on above: Performed By: #### U MICRO, ERUR #### [facility] [address] [place] [address] Dr. Manuel Sandhu UA PROTEIN Negative Normal NEGATIVE/ TRACE [facility] Comment on above: Performed By: #### U MICRO, ERUR #### [facility] [address] [place] [address] Dr. Manuel Sandhu UR MICRO IND INDICATED Normal [facility] Comment on above: Performed By: #### U MICRO, ERUR #### [facility] [address] [place] [address] Dr. Manuel Sandhu Urobilinogen Qn (U) 0.2 {Lucila'U}/dL Normal 0.2 - 1. [address] [facility] Comment on above: Performed By: #### U MICRO, ERUR #### [facility] [address] [place] [address] Dr. Manuel Sandhu PROF CHEM 8 (BAS METB)on Anion gap [Moles/Vol] 11.7 mmol/L Normal [facility] Comment on above: Performed By: #### C JENNIE PATRICK, LIPA #### [facility] [address] [place] [address] Dr. Manuel Sandhu Calcium [Mass/Vol] 9.1 mg/dL Normal 8.5-10.1 [facility] Comment on above: Performed By: #### C JENNIE PATRICK, LIPA #### [facility] [address] [address] [address] Manuel Sandhu Chloride [Moles/Vol] 105 mmol/L Normal 98-107 [facility] Comment on above: Performed By: #### C JENNIE PATRICK, LIPA #### [facility] [address] [address] [address] Manuel Sandhu CO2 [Moles/Vol] 26.8 mmol/L Normal 21.0-32.0 [facility] Comment on above: Performed By: #### C JENNIE PATRICK, LIPA #### [facility] [address] [address] [address] Manuel Sandhu Creatinine [Mass/Vol] 0.62 mg/dL Normal 0.55-1.[address] [facility] Comment on above: Performed By: #### C JENNIE PATRICK, LIPA #### [facility] [address] [place] [address] Dr. Manuel Sandhu EGFR-AF [place]IZ[place] >60 Normal >=60 [facility] Comment on above: Performed By: #### C JENNIE PATRICK, LIPA #### [facility] [address] [address] [address] Manuel Sandhu EGFR-NON AF [place]IZ[place] >60 Normal >=[address] [facility] Comment on above: Performed By: #### C JENNIE PATRICK, LIPA #### [facility] [address] [address] [address] Manuel Sandhu Glucose [Mass/Vol] 92 mg/dL Normal 74-106 [facility] Comment on above: Performed By: #### C JENNIE PATRICK, LIPA #### [facility] [address] [address] [address] Manuel Sandhu Potassium [Moles/Vol] 3.5 mmol/L Normal 3.5-5.1 [facility] Comment on above: Performed By: #### C JENNIE PATRICK, LIPA #### [facility] [address] [address] [address] Manuel Sandhu Sodium [Moles/Vol] 140 mmol/L Normal 136-145 [facility] Comment on above: Performed By: #### C JENNIE PATRICK LIPA #### [facility] [address] [address] [address] Manuel Sandhu Urea nitrogen [Mass/Vol] 8.0 mg/dL Normal 7.0-18.0 [facility] Comment on above: Performed By: #### C MP, JENNIE, LIPA #### [facility] [address] [place] [address] Dr. Manuel Sandhu Urea nitrogen/Creatinine [Mass ratio] 12.9 mg/mg Normal [facility] Comment on above: Performed By: #### C MP, JENNIE, LIPA #### [facility] [address] [place] [address] Dr. Manuel Sandhu URINE MICROSCOPIC ONLYon BACTERIA NONE SEEN Normal NONE SEEN [facility] Comment on above: Performed By: #### U MICRO, ERUR #### [facility] [address] [place] [address] Dr. Manuel Sandhu Bacteria identified Cx Nom (U) NOT INDICATED Normal [facility] Comment on above: Performed By: #### U MICRO, ERUR #### [facility] [address] [place] [address] Dr. Manuel Sandhu CAST NONE SEEN Normal NONE SEEN [facility] Comment on above: Performed By: #### U MICRO, ERUR #### [facility] [address] [place] [address] Dr. Manuel Sandhu Crystals LM Nom (Urine sed) NONE SEEN Normal NONE SEEN [facility] Comment on above: Performed By: #### U MICRO, ERUR #### [facility] [address] [place] [address] Dr. Manuel Sandhu Epithelial cells LM Ql (Urine sed) FEW Abnormal NONE SEEN /RARE [facility] Comment on above: Performed By: #### U MICRO, ERUR #### [facility] [address] [place] [address] Dr. Manuel Sandhu MUCOUS TRACE Abnormal NONE SEEN [facility] Comment on above: Performed By: #### U MICRO, ERUR #### [facility] [address] [place] [address] Dr. Manuel Sandhu RBC 5-10 Abnormal 0-2 [facility] Comment on above: Performed By: #### U MICRO, ERUR #### [facility] [address] [address] [address] Manuel Sandhu WBC 2-5 Abnormal NONE SEEN [facility] Comment on above: Performed By: #### U MICRO, ERUR #### [facility] [address] [address] [address] Manuel Sandhu No Panel InformationOrdered By: Dorita Niño on 08-19-2022 CSF Glucose 55 mg/dL 40-70 [facility] CSF Total Protein 24 mg/dL 15-45 [facility] CBC AUTO DIFFon 08-16-2022 BASO # 0.1 103/ul Normal 0.0-0.[address] [facility] Comment on above: Performed By: #### U MICRO, ERUR #### [facility] [address] [place] [address] Dr. Manuel Sandhu Basophils/100 WBC (Bld) 0.4 % Normal 0.2-2.[address] [facility] Comment on above: Performed By: #### U MICRO, ERUR #### [facility] [address] [address] [address] Manuel Sandhu EO # 0.2 103/ul Normal 0.0-0.[address] [facility] Comment on above: Performed By: #### U MICRO, ERUR #### [facility] [address] [address] [address] Manuel Sandhu Eosinophils/100 WBC (Bld) 1.8 % Normal 0.9-7.[address] [facility] Comment on above: Performed By: #### U MICRO, ERUR #### [facility] [address] [address] [address] Manuel Sandhu Erythrocyte distribution width (RBC) [Ratio] 13.6 % Normal 11.0-15.[address] [facility] Comment on above: Performed By: #### U MICRO, ERUR #### [facility] [address] [place] [address] Dr. Manuel Sandhu Hematocrit (Bld) [Volume fraction] 35.8 % Critically low 36.0-48.[address] [facility] Comment on above: Performed By: #### U MICRO, ERUR #### [facility] [address] [place] [address] Dr. Manuel Sandhu Hemoglobin (Bld) [Mass/Vol] 12.2 g/dL Normal 12.0-16.[address] [facility] Comment on above: Performed By: #### U MICRO, ERUR #### [facility] [address] [place] [address] Dr. Manuel Sandhu IG # 0.05 10e3/ul Critically high 0.00-0.03 [facility] Comment on above: Performed By: #### U MICRO, ERUR #### [facility] [address] [place] [address] Dr. Manuel Sandhu IG % 0.4 % Normal 0.0-0.[address] [facility] Comment on above: Performed By: #### U MICRO, ERUR #### [facility] [address] [place] [address] Dr. Manuel Sandhu LYMPH # 2.0 103/ul Normal 1.2-3.[address] [facility] Comment on above: Performed By: #### U MICRO, ERUR #### [facility] [address] [place] [address] Dr. Manuel Sandhu Lymphocytes/100 WBC (Bld) 18.1 % Critically low 20.5-60.[address] [facility] Comment on above: Performed By: #### U MICRO, ERUR #### [facility] [address] [place] [address] Dr. Manuel Sandhu MANUAL DIFF REQ NO Normal [facility] Comment on above: Performed By: #### U MICRO, ERUR #### [facility] [address] [place] [address] Dr. Manuel Sandhu MCH (RBC) [Entitic mass] 32.0 pg Normal 26.7-34.[address] [facility] Comment on above: Performed By: #### U MICRO, ERUR #### [facility] [address] [place] [address] Dr. Manuel Sandhu MCHC (RBC) [Mass/Vol] 34.1 g/dL Normal 29.9-35.2 [facility] Comment on above: Performed By: #### U MICRO, ERUR #### [facility] [address] [address] [address] Manuel Sandhu MCV (RBC) [Entitic vol] 94.0 fL Normal 81.0-99.0 [facility] Comment on above: Performed By: #### U MICRO, ERUR #### [facility] [address] [place] [address] Dr. Manuel Sandhu MONO # 0.7 103/ul Normal 0.3-0.8 [facility] Comment on above: Performed By: #### U MICRO, ERUR #### [facility] [address] [place] [address] Dr. Manuel Sandhu Monocytes/100 WBC (Bld) 5.8 % Normal 1.7-12.0 [facility] Comment on above: Performed By: #### U MICRO, ERUR #### [facility] [address] [place] [address] Dr. Manuel Sandhu NEUT # 8.2 103/ul Critically high 1.4-6.5 [facility] Comment on above: Performed By: #### U MICRO, ERUR #### [facility] [address] [place] [address] Dr. Manuel Sandhu Neutrophils/100 WBC (Bld) 73.5 % Normal 43.0-75.0 [facility] Comment on above: Performed By: #### U MICRO, ERUR #### [facility] [address] [address] [address] Manuel Sandhu Platelet mean volume (Bld) [Entitic vol] 11.3 fL Normal 9.5-13.5 [facility] Comment on above: Performed By: #### U MICRO, ERUR #### [facility] [address] [place] [address] Dr. Manuel Sandhu PLT 284 103/ul Normal 150-450 [facility] Comment on above: Performed By: #### U MICRO, ERUR #### [facility] [address] [address] [address] Manuel Sandhu RBC 3.81 106/ul Critically low 4.20-5.40 [facility] Comment on above: Performed By: #### U MICRO, ERUR #### [facility] [address] [place] [address] Dr. Manuel Sandhu WBC 11.2 103/ul Critically high 4.0-11.0 [facility] Comment on above: Performed By: #### U MICRO, ERUR #### [facility] [address] [place] [address] Dr. Manuel Sandhu D-DIMERon 08-16-2022 D-DIMER 0.34 mg/L FEU Normal <=0.59 [facility] Comment on above: Performed By: #### U MICRO, ERUR #### [facility] [address] [place] [address] Dr. Manuel Sandhu D-DIMER COMMENTS SEE BELOW Normal [facility] Comment on above: Result Comment: Incr [...] Performed By: #### U MICRO, ERUR #### [facility] [address] [place] [address] Dr. Manuel Sandhu PROF CHEM 8 (BAS METB)on Anion gap [Moles/Vol] 10.6 mmol/L Normal [facility] Comment on above: Performed By: #### I NFLUAB #### [facility] [address] [place] [address] Dr. Manuel Sandhu Calcium [Mass/Vol] 9.2 mg/dL Normal 8.5-10.1 [facility] Comment on above: Performed By: #### I NFLUAB #### [facility] [address] [address] [address] Manuel Sandhu Chloride [Moles/Vol] 103 mmol/L Normal 98-107 [facility] Comment on above: Performed By: #### I NFLUAB #### [facility] [address] [address] [address] Manuel Sandhu CO2 [Moles/Vol] 28.4 mmol/L Normal 21.0-32.0 [facility] Comment on above: Performed By: #### I NFLUAB #### [facility] [address] [address] [address] Manuel Sandhu Creatinine [Mass/Vol] 0.61 mg/dL Normal 0.55-1.02 [facility] Comment on above: Performed By: #### I NFLUAB #### [facility] [address] [address] [address] Manuel Sandhu EGFR-AF [place]IZ[place] >60 Normal >=60 [facility] Comment on above: Performed By: #### I NFLUAB #### [facility] [address] [address] [address] Manuel Sandhu EGFR-NON AF CITIZ[place] >60 Normal >=[address] [facility] Comment on above: Performed By: #### I NFLUAB #### [facility] [address] [address] [address] Manuel Sandhu Glucose [Mass/Vol] 90 mg/dL Normal 74-106 [facility] Comment on above: Performed By: #### I NFLUAB #### [facility] [address] [address] [address] Manuel Sandhu Potassium [Moles/Vol] 4.0 mmol/L Normal 3.5-5.1 [facility] Comment on above: Performed By: #### I NFLUAB #### [facility] [address] [address] [address] Manuel Sandhu Sodium [Moles/Vol] 138 mmol/L Normal 136-145 [facility] Comment on above: Performed By: #### I NFLUAB #### [facility] [address] [address] [address] Manuel Sandhu Urea nitrogen [Mass/Vol] 16.0 mg/dL Normal 7.0-18.[address] [facility] Comment on above: Performed By: #### I NFLUAB #### [facility] [address] [address] [address] Manuel Sandhu Urea nitrogen/Creatinine [Mass ratio] 26.2 mg/mg Normal [facility] Comment on above: Performed By: #### I NFLUAB #### [facility] [address] [address] [address] Manuel Sandhu XR CHEST 1 Von [...] by: YOLI FRANKS Date: 2022-08-16 14:[address] [facility] Albumin [Mass/volume] in Ser um or PlasmaOrdered By: Sangeetha Peña on 08-12-2022 Albumin [Mass/Vol] 3.2 g/dL 3.2-5.5 [facility] Basophils Auto (Bld) [#/Vol] Ordered By: Sangeetha Peña on 08-12-2022 Basophils (Bld) [#/Vol] 0.1 10*3/uL 0.0-0.2 [facility] Basophils/100 WBC Auto (Bld) Ordered By: Sangeetha Peña on 08-12-2022 Basophils/100 WBC (Bld) 0.7 % . [facility] C reactive protein [Mass/vol ume] in Serum or PlasmaOrdered By: Sangeetha Peña on 08-12-2022 CRP [Mass/Vol] 0.5 mg/dL 0.0-1.0 [facility] Creatinine and Glomerular fi ltration rate.predicted panel (S/P/Bld)Ordered By: Sangeetha Peña on 08-12-2022 Creatinine [Mass/Vol] 0.65 mg/dL 0.44-1.03 [facility] Eosinophils Auto (Bld) [#/Vo l]Ordered By: Sangeetha Peña on 08-12-2022 Eosinophils (Bld) [#/Vol] 0.4 10*3/uL 0.0-0.45 [facility] Eosinophils/100 WBC Auto (Bl d)Ordered By: Sangeetha Peña on 08-12-2022 Eosinophils/100 WBC (Bld) 5.2 % . [facility] Erythrocyte distribution wid th Auto (RBC) [Ratio]Ordered By: Sangeetha Peña on 08-12-2022 Erythrocyte distribution width (RBC) [Ratio] 14.4 % 11.9-15.3 [facility] Erythrocyte sedimentation ra te by Photometric methodOrdered By: Dorita Niño on 08-12-2022 ESR Photometric method (Bld) [Velocity] 3 mm/hr 0-19 [facility] Estimated glomerular filtrat ion rate (GFR) non- AmericanOrdered By: Sangeetha Peña on 08-12-2022 GFR/1.73 sq M.predicted among non-blacks MDRD (S/P/Bld) [Vol rate/Area] > 60 mL/Min [facility] Folate [Mass/volume] in Seru m or PlasmaOrdered By: Lizzeth Malave on 08-12-2022 Folate [Mass/Vol] 15.3 ng/mL >5.9 [facility] Comment on above: Folate reference ran ge: >5.9 ng/mlThe WHO technical consultation on folate and vitamin [id number] has determined that folate concentrations lessthan 4 ng/ml are considered deficient. Globulin Calc (S) [Mass/Vol] Ordered By: Sangeetha Peña on 08-12-2022 Globulin (S) [Mass/Vol] 2.4 g/dL [facility] HCG ( test) IA.rapi d Ql (U)Ordered By: Lizzeth Malave on 08-12-2022 HCG ( test) Ql (U) Negative [facility] Hematocrit Auto (Bld) [Volum e fraction]Ordered By: Sangeetha Peña on 08-12-2022 Hematocrit (Bld) [Volume fraction] 34.6 % 34.0-46.4 [facility] Hemoglobin [Mass/volume] in BloodOrdered By: Sangeetha Peña on 08-12-2022 Hemoglobin (Bld) [Mass/Vol] 11.3 g/dL 11.8-15.4 [facility] Laboratory - Chemistry and C hemistry - challengeOrdered By: Lizzeth Malave on 08-12-2022 Cobalamin (Vitamin B12) [Mass/Vol] 610 pg/mL 180-914 [facility] Magnesium [Mass/Vol] 1.9 mg/dL 1.6-2.6 [facility] - Hematology and Cell countsOrdered By: Sangeetha Peña on 08-12-2022 Nucleated RBC/100 WBC (Bld) [Ratio] 0.1 % 0-0.5 [facility] Leukocytes [#/volume] in Blo od by Automated countOrdered By: Sangeetha Peña on 08-12-2022 WBC (Bld) [#/Vol] 8.3 10*3/uL 4.5-11.0 [facility] Lymphocytes Auto (Bld) [#/Vo l]Ordered By: Sangeetha Peña on 08-12-2022 Lymphocytes (Bld) [#/Vol] 2.3 10*3/uL 1.00-4.8 [facility] Lymphocytes/100 WBC Auto (Bl d)Ordered By: Sangeetha Peña on 08-12-2022 Lymphocytes/100 WBC (Bld) 27.4 % . [facility] MCH Auto (RBC) [Entitic mass ]Ordered By: Sangeetha Peña on 08-12-2022 MCH (RBC) [Entitic mass] 32.0 pg 24.7-34.3 [facility] MCHC Auto (RBC) [Mass/Vol]Or dered By: Sangeetha Peña on 08-12-2022 MCHC (RBC) [Mass/Vol] 32.8 g/dL 32.0-35.0 [facility] MCV Auto (RBC) [Entitic vol] Ordered By: Sangeetha Peña on 08-12-2022 MCV (RBC) [Entitic vol] 97.7 fL 80-100 [facility] Monocytes Auto (Bld) [#/Vol] Ordered By: Sangeetha Peña on 08-12-2022 Monocytes (Bld) [#/Vol] 0.7 10*3/uL 0.0-0.8 [facility] Monocytes/100 WBC Auto (Bld) Ordered By: Sangeetha Peña on 08-12-2022 Monocytes/100 WBC (Bld) 8.7 % . [facility] Neutrophils Auto (Bld) [#/Vo l]Ordered By: Sangeetha Peña on 08-12-2022 Neutrophils (Bld) [#/Vol] 4.8 10*3/uL 1.8-7.7 [facility] Neutrophils/100 WBC Auto (Bl d)Ordered By: Sangeetha Peña on 08-12-2022 Neutrophils/100 WBC (Bld) 58.0 % . [facility] No Panel InformationOrdered By: Sangeetha Peña on 08-12-2022 Estimated GFR () > 60 mL/Min [facility] Comment on above: GFR estimated refere nce range: According to KDOQI guidelines, <60 ml/min/1.73m2 is sufficient to diagnose a patient with chronic kidney disease. Pharmacy Creatinine Clearance (Chem 140.31 [facility] Platelet mean volume Auto (B ld) [Entitic vol]Ordered By: Sangeetha Peña on 08-12-2022 Platelet mean volume (Bld) [Entitic vol] 10.2 fL 6.3-10.7 [facility] Platelets Auto (Bld) [#/Vol] Ordered By: Sangeetha Peña on 08-12-2022 Platelets (Bld) [#/Vol] 263 10*3/uL 150-450 [facility] Protein [Mass/volume] in Ser um or PlasmaOrdered By: Sangeetha Peña on 08-12-2022 Protein [Mass/Vol] 5.6 g/dL 6.1-7.9 [facility] RBC Auto (Bld) [#/Vol]Ordere d By: Sangeetha Peña on 08-12-2022 RBC (Bld) [#/Vol] 3.54 10*6/uL 3.60-5.00 [facility] Serum or plasma alanine alberto otransferase measurement without P-5'-P (enzymatic activiOrdered By: Sangeetha Peña on 08-12-2022 ALT No additional P-5'-P [Catalytic activity/Vol] 22 U/L 10-60 [facility] Serum or plasma albumin/glob ulin mass ratioOrdered By: Sangeetha Peña on 08-12-2022 Albumin/Globulin [Mass ratio] 1.3 {ratio} [facility] Serum or plasma alkaline marquez sphatase measurement (enzymatic activity/volume)Ordered By: Sangeetha Peña on 08-12-2022 ALP [Catalytic activity/Vol] 54 U/L 32-92 [facility] Serum or plasma anion gap de terminationOrdered By: Sangeetha Peña on 08-12-2022 Anion gap [Moles/Vol] 10.6 mmol/L 6.0-15.0 [facility] Serum or plasma aspartate am inotransferase measurement (enzymatic activity/volume)Ordered By: Sangeetha Peña on 08-12-2022 AST [Catalytic activity/Vol] 20 U/L 10-42 [facility] Serum or plasma calcium audie urement (mass/volume)Ordered By: Sangeetha Peña on 08-12-2022 Calcium [Mass/Vol] 8.8 mg/dL 8.2-10.2 [facility] Serum or plasma chloride nimisha surement (moles/volume)Ordered By: Sangeetha Peña on 08-12-2022 Chloride [Moles/Vol] 105 mmol/L 95-114 [facility] Serum or plasma glucose audie urement (mass/volume)Ordered By: Sangeetha Peña on 08-12-2022 Glucose [Mass/Vol] 85 mg/dL 70-100 [facility] Comment on above: ADA recommended refe rence rangeRandom Glucose Reference Range is dependent on time and content of last meal. Glucose of more than 200 mg/dL in a nonstressed, ambulatory subject supports the diagnosis of Diabetes Mellitus. Serum or plasma potassium me asurement (moles/volume)Ordered By: Sangeetha Peña on 11-29-2022 Potassium [Moles/Vol] 4.2 mmol/L 3.5-5.1 [facility] Serum or plasma sodium measu rement (moles/volume)Ordered By: Sangeetha Peña on 08-12-2022 Sodium [Moles/Vol] 140 mmol/L 136-146 [facility] Serum or plasma total biliru bin measurement (mass/volume)Ordered By: Sangeetha Peña on 08-12-2022 Bilirubin [Mass/Vol] 0.5 mg/dL 0.3-1.2 [facility] Serum or plasma total carbon dioxide measurement (moles/volume)Ordered By: Sangeetha Peña on 08-12-2022 CO2 [Moles/Vol] 28.6 mmol/L 22.0-30.0 [facility] Serum or plasma urea nitroge n measurement (mass/volume)Ordered By: Sangeetha Peña on 08-12-2022 Urea nitrogen [Mass/Vol] 7 mg/dL 9-23 [facility] TSH DL <= 0.005 mIU/L QnOrde red By: Lizzeth Malave on 08-12-2022 TSH Qn 1.79 m[IU]/L 0.45-5.33 [facility] Troponin I.cardiac [Mass/vol ume] in Serum or Plasma by High sensitivity methodOrdered By: Lizzeth Malave on 08-12-2022 Troponin I.cardiac High sensitivity method [Mass/Vol] < 3 pg/mL 0-15 [facility] CBC AUTO DIFFon 08-11-2022 BASO # 0.1 103/ul Normal 0.0-0.[address] [facility] Comment on above: Performed By: #### C JENNIE PATRICK, LIPA #### [facility] [address] [address] [address] Manuel Sandhu Basophils/100 WBC (Bld) 0.5 % Normal 0.2-2.[address] [facility] Comment on above: Performed By: #### C JENNIE PATRICK, LIPA #### [facility] [address] [place], [place] [address] Dr. Manuel Sandhu EO # 0.4 103/ul Normal 0.0-0.[address] [facility] Comment on above: Performed By: #### C JENNIE PATRICK LIPA #### [facility] [address] [place] [address] Dr. Manuel Sandhu Eosinophils/100 WBC (Bld) 2.4 % Normal 0.9-7.[address] [facility] Comment on above: Performed By: #### C JENNIE PATRICK LIPA #### [facility] [address] [place] [address] Dr. Manuel Sandhu Erythrocyte distribution width (RBC) [Ratio] 14.1 % Normal 11.0-15.[address] [facility] Comment on above: Performed By: #### C JENNIE PATRICK LIPA #### [facility] [address] [place] [address] Dr. Manuel Sandhu Hematocrit (Bld) [Volume fraction] 39.4 % Normal 36.0-48.[address] [facility] Comment on above: Performed By: #### C JENNIE PATRICK LIPA #### [facility] [address] [place] [address] Dr. Manuel Sandhu Hemoglobin (Bld) [Mass/Vol] 13.3 g/dL Normal 12.0-16.0 [facility] Comment on above: Performed By: #### C JENNIE PATRICK LIPA #### [facility] [address] [place] [address] Dr. Manuel Sandhu IG # 0.07 10e3/ul Critically high 0.00-0.[address] [facility] Comment on above: Performed By: #### C JENNIE PATRICK LIPA #### [facility] [address] [place] [address] Dr. Manuel Sandhu IG % 0.5 % Normal 0.0-0.5 [facility] Comment on above: Performed By: #### C JENNIE PATRICK LIPA #### [facility] [address] [place] [address] Dr. Manuel Sandhu LYMPH # 3.6 103/ul Normal 1.2-3.8 [facility] Comment on above: Performed By: #### C JENNIE PATRICK LIPA #### [facility] [address] [address] [address] Manuel Sandhu Lymphocytes/100 WBC (Bld) 23.5 % Normal 20.5-60.0 [facility] Comment on above: Performed By: #### C MP, JENNIE, LIPA #### [facility] [address] [address] [address] Manuel Sandhu MANUAL DIFF REQ NO Normal [facility] Comment on above: Performed By: #### C MP, JENNIE, LIPA #### [facility] [address] [place] [address] Dr. Manuel Sandhu MCH (RBC) [Entitic mass] 32.1 pg Normal 26.7-34.0 [facility] Comment on above: Performed By: #### C MP, JENNIE, LIPA #### [facility] [address] [place] [address] Dr. Manuel Sandhu MCHC (RBC) [Mass/Vol] 33.8 g/dL Normal 29.9-35.2 [facility] Comment on above: Performed By: #### C MP, JENNIE, LIPA #### [facility] [address] [place] [address] Dr. Manuel Sandhu MCV (RBC) [Entitic vol] 95.2 fL Normal 81.0-99.0 [facility] Comment on above: Performed By: #### C MP, JENNIE, LIPA #### [facility] [address] [place] [address] Dr. Manuel Sandhu MONO # 0.9 103/ul Critically high 0.3-0.8 [facility] Comment on above: Performed By: #### C MP, JENNIE, LIPA #### [facility] [address] [place] [address] Dr. Manuel Sandhu Monocytes/100 WBC (Bld) 5.8 % Normal 1.7-12.0 [facility] Comment on above: Performed By: #### C MP, JENNIE, LIPA #### [facility] [address] [place] [address] Dr. Manuel Sandhu NEUT # 10.3 103/ul Critically high 1.4-6.5 [facility] Comment on above: Performed By: #### C JENNIE PATRICK LIPA #### [facility] [address] [address] [address] Manuel Sandhu Neutrophils/100 WBC (Bld) 67.3 % Normal 43.0-75.[address] [facility] Comment on above: Performed By: #### C JENNIE PATRICK LIPA #### [facility] [address] [place] [address] Dr. Manuel Sandhu Platelet mean volume (Bld) [Entitic vol] 11.4 fL Normal 9.5-13.[address] [facility] Comment on above: Performed By: #### C JENNIE PATRICK LIPA #### [facility] [address] [place] [address] Dr. Manuel Sandhu PLT 364 103/ul Normal 150-[address] [facility] Comment on above: Performed By: #### C JENNIE PATRICK LIPA #### [facility] [address] [address] [address] Manuel Sandhu RBC 4.14 106/ul Critically low 4.20-5.40 [facility] Comment on above: Performed By: #### C JENNIE PATRICK LIPA #### [facility] [address] [place] [address] Dr. Manuel Sandhu WBC 15.3 103/ul Critically high 4.0-11.0 [facility] Comment on above: Performed By: #### C JENNIE PATRICK LIPA #### [facility] [address] [place] [address] STROKE HEAD WOon [...] YOLI MCKEON Date: 2022-08-11 15:21 Normal [facility] ER URINE PROFILEon 2 Bilirubin Ql (U) Negative Normal NEGATIVE [facility] Comment on above: Performed By: #### U MICRO, ERUR #### [facility] [address] [place] [address] Dr. Manuel Sandhu Clarity (U) CLEAR Normal CLEAR [facility] Comment on above: Performed By: #### U MICRO, ERUR #### [facility] [address] [place] [address] Dr. Manuel Sandhu Color (U) LT. YELLOW Normal YELLOW [facility] Comment on above: Performed By: #### U MICRO, ERUR #### [facility] [address] [place] [address] Dr. Manuel CUNHA A micrscopic examination will be performed if indicated. Normal [facility] Comment on above: Performed By: #### U MICRO, ERUR #### [facility] [address] [place] [address] Dr. Manuel Sandhu Glucose Ql (U) Negative Normal NEGATIVE [facility] Comment on above: Performed By: #### U MICRO, ERUR #### [facility] [address] [place] [address] Dr. Manuel Sandhu Hemoglobin Ql (U) Negative Normal NEGATIVE [facility] Comment on above: Performed By: #### U MICRO, ERUR #### [facility] [address] [place] [address] Dr. Manuel Sandhu Ketones Ql (U) Negative Normal NEGATIVE [facility] Comment on above: Performed By: #### U MICRO, ERUR #### [facility] [address] [address] [address] Manuel Sandhu LEUKOCYTES Negative Normal NEGATIVE [facility] Comment on above: Performed By: #### U MICRO, ERUR #### [facility] [address] [place] [address] Dr. Manuel Sandhu Nitrite Ql (U) Negative Normal NEGATIVE [facility] Comment on above: Performed By: #### U MICRO, ERUR #### [facility] [address] [address] [address] Manuel Sandhu pH (U) 7.0 [pH] Normal 5-[address] [facility] Comment on above: Performed By: #### U MICRO, ERUR #### [facility] [address] [place] [address] Dr. Manuel Sandhu SPEC GRAVITY <=1.005 Abnormal 1.005-<=1.[address] [facility] Comment on above: Performed By: #### U MICRO, ERUR #### [facility] [address] [place] [address] Dr. Manuel Sandhu UA PROTEIN Negative Normal NEGATIVE/ TRACE [facility] Comment on above: Performed By: #### U MICRO, ERUR #### [facility] [address] [place] [address] Dr. Manuel Sandhu UR MICRO IND NOT INDICATED Normal [facility] Comment on above: Performed By: #### U MICRO, ERUR #### [facility] [address] [place] [address] Dr. Manuel Sandhu Urobilinogen Qn (U) 0.2 {Lucila'U}/dL Normal 0.2 - 1. [address] [facility] Comment on above: Performed By: #### U MICRO, ERUR #### [facility] [address] [place] [address] Dr. Manuel Sandhu LACTATE/LACTIC ACIDon 2021 Lactate [Moles/Vol] 1.5 mmol/L Normal 0.4-1.9 [facility] Comment on above: Performed By: #### I NFLUAB #### [facility] [address] [place] [address] Dr. Manuel Sandhu LIPASEon 08-11-2022 Lipase [Catalytic activity/Vol] 84.0 U/L Normal 73.0-393.[address] [facility] Comment on above: Performed By: #### C MP, JENNIE, LIPA #### [facility] [address] [place] [address] Dr. Manuel Sandhu URon 08-11-2022 , QUAL Negative Normal NEGATIVE [facility] Comment on above: Performed By: #### U MICRO, ERUR #### [facility] [address] [place] [address] Dr. Manuel Sandhu PROF 14(COMP METB)on 022 Albumin [Mass/Vol] 4.3 g/dL Normal 3.4-5.0 [facility] Comment on above: Performed By: #### C MP, JENNIE, LIPA #### [facility] [address] [place] [address] Dr. Manuel Sandhu Albumin/Globulin [Mass ratio] 1.1 {ratio} Normal [facility] Comment on above: Performed By: #### C MP, JENNIE, LIPA #### [facility] [address] [place] [address] Dr. Manuel Sandhu ALP [Catalytic activity/Vol] 87 U/L Normal 46-[address] [facility] Comment on above: Performed By: #### C MP, JENNIE, LIPA #### [facility] [address] [place] [address] Dr. Manuel Sandhu ALT [Catalytic activity/Vol] 32 U/L Normal 14-[address] [facility] Comment on above: Performed By: #### C MP, JENNIE, LIPA #### [facility] [address] [place] [address] Dr. Manuel Sandhu Anion gap [Moles/Vol] 12.7 mmol/L Normal [facility] Comment on above: Performed By: #### C MP, JENNIE, LIPA #### [facility] [address] [place] [address] Dr. Manuel Sandhu AST [Catalytic activity/Vol] 24 U/L Normal 15-[address] [facility] Comment on above: Performed By: #### C JENNIE PATRICK, LIPA #### [facility] [address] [address] [address] Manuel Sandhu Bilirubin [Mass/Vol] 0.3 mg/dL Normal 0.2-1.[address] [facility] Comment on above: Performed By: #### C CELINA JENNIE, LIPA #### [facility] [address] [place] [address] Dr. Manuel Sandhu Calcium [Mass/Vol] 9.4 mg/dL Normal 8.5-10.1 [facility] Comment on above: Performed By: #### C CELINA JENNIE, LIPA #### [facility] [address] [place] [address] Dr. Manuel Sandhu Chloride [Moles/Vol] 100 mmol/L Normal 98-107 [facility] Comment on above: Performed By: #### C CELINA JENNIE, LIPA #### [facility] [address] [place] [address] Dr. Manuel Sandhu CO2 [Moles/Vol] 27.7 mmol/L Normal 21.0-32.0 [facility] Comment on above: Performed By: #### C CELINA JENNIE, LIPA #### [facility] [address] [place] [address] Dr. Manuel Sandhu Creatinine [Mass/Vol] 0.71 mg/dL Normal 0.55-1.[address] [facility] Comment on above: Performed By: #### C CELINA JENNIE, LIPA #### [facility] [address] [place] [address] Dr. Manuel Sandhu EGFR-AF [place]IZ[place] >60 Normal >=60 [facility] Comment on above: Performed By: #### C CELINA JENNIE, LIPA #### [facility] [address] [place] [address] Dr. Manuel Sandhu EGFR-NON AF CITIZEN OF [place] >60 Normal >=60 [facility] Comment on above: Performed By: #### C MP, JENNIE, LIPA #### [facility] [address] [address] [address] Manuel Sandhu Globulin (S) [Mass/Vol] 3.9 g/dL Normal [facility] Comment on above: Performed By: #### C MP, JENNIE, LIPA #### [facility] [address] [address] [address] Manuel Sandhu Glucose [Mass/Vol] 109 mg/dL Critically high 74-106 [facility] Comment on above: Performed By: #### C MP, JENNIE, LIPA #### [facility] [address] [address] [address] Manuel Sandhu Potassium [Moles/Vol] 3.4 mmol/L Critically low 3.5-5.[address] [facility] Comment on above: Performed By: #### C MP, JENNIE, LIPA #### [facility] [address] [place] [address] Dr. Manuel Sandhu Protein [Mass/Vol] 8.2 g/dL Normal 6.4-8.2 [facility] Comment on above: Performed By: #### C MP, JENNIE, LIPA #### [facility] [address] [address] [address] Manuel Sandhu Sodium [Moles/Vol] 137 mmol/L Normal 136-145 [facility] Comment on above: Performed By: #### C MP, JENNIE, LIPA #### [facility] [address] [address] [address] Manuel Sandhu Urea nitrogen [Mass/Vol] 10.0 mg/dL Normal 7.0-18.[address] [facility] Comment on above: Performed By: #### C MP, JENNIE, LIPA #### [facility] [address] [address] [address] Manuel Sandhu Urea nitrogen/Creatinine [Mass ratio] 14.1 mg/mg Normal [facility] Comment on above: Performed By: #### C MP, JENNIE, LIPA #### [facility] [address] [address] [address] Manuel Sandhu PROTIMEon 08-11-2022 INR Coag (PPP) [Relative time] 0.96 {INR} Normal [facility] Comment on above: Performed By: #### I NFLUAB #### [facility] [address] [place] [address] Dr. Manuel Sandhu INR GUIDELINES SEE BELOW Normal [facility] Comment on above: Result Comment: CHUY RED INR: 2.0 - 3.0 CONDITIONS NOT LISTED BELOW 2.5 - 3.5 FOR PROSTHETIC HEART VALVE REPLACEMENT 2.5 - 3.5 RECURRENT THROMBOSIS Performed By: #### I NFLUAB #### [facility] [address] [place] [address] Dr. Manuel Sandhu PT Coag (PPP) [Time] 10.4 s Normal 9.0-11.[address] [facility] Comment on above: Performed By: #### I NFLUAB #### [facility] [address] [place] [address] Dr. Manuel Sandhu PTTon 08-11-2022 aPTT Coag (Bld) [Time] 25.3 s Normal 22.3-36.2 [facility] Comment on above: Performed By: #### I NFLUAB #### [facility] [address] [place] [address] Dr. Manuel Sandhu TROPONIN, HIGH SENSITIVITYon 08-11-2022 HSTROP 4.5 pg/mL Normal 4.0-51.[address] [facility] Comment on above: Result Comment: CUT- OFF POINTS HAVE BEEN ESTABLISHED BASED ON THE FOURTH UNIVERSAL DEFINITIONS OF MYOCARDIAL INFARCTION. THE UPPER REFERENCE LIMIT (URL) OF TROPONIN, DEFINED THE 99TH PERCENTILE OF cTnI DISTRIBUTION IN A REFERENCE POPULATION, HAS BEEN CONFIRMED THE DECISION THRESHOLD FOR [place] DIAGNOSIS. Performed By: #### C CELINA JENNIE, LIPA #### [facility] [address] [place] [address] Dr. Manuel Sandhu TSHon 08-11-2022 TSH 1.778 uIU/mL Normal 0.358-3.740 [facility] Comment on above: Performed By: #### C MP JENNIE, LIPA #### [facility] [address] [place] [address] Dr. Manuel Sandhu CHEMISTRYOrdered By: SYSTEM SYSTEM on 08-08-2022 Anion gap [Moles/Vol] 11 mmol/L Normal 6 - 16 mEq/L [facility] Remisol Calcium [Mass/Vol] 9.0 mg/dL Normal 8.9 - 11. 1 mg/dL [facility] Remisol Chloride [Moles/Vol] 105 mmol/L Normal 101 - 1 11 mmol/L [facility] Remisol CO2 [Moles/Vol] 25 mmol/L Normal 21 - 31 mmol/L [facility] Remisol Creatinine [Mass/Vol] 0.6 mg/dL Normal 0.5 - 1.3 mg/dL [facility] Remisol GFR/1.73 sq M.predicted among blacks MDRD (S/P/Bld) [Vol rate/Area] mL/min/1.73 m2 Normal >=59mL/min/1 .73 m2 [facility] Chem S GFR/1.73 sq M.predicted among non-blacks MDRD (S/P/Bld) [Vol rate/Area] mL/min/1.73 m2 Normal >=59mL/min/1 .73 m2 [facility] Chem S Glucose [Mass/Vol] 84 mg/dL Normal 55 - 199 mg/dL [facility] Remisol Potassium [Moles/Vol] 4.2 mmol/L Normal 3.5 - 5.3 mmol/L [facility] Remisol Sodium [Moles/Vol] 137 mmol/L Normal 135 - 145 mmol/L [facility] Remisol Urea nitrogen [Mass/Vol] 13 mg/dL Normal 5 - 21 mg/dL [facility] Remisol Urea nitrogen/Creatinine [Mass ratio] 22 mg/mg High 10 - 20 [facility] Remisol CHEMISTRYOrdered By: Lab ROP User on 08-08-2022 Glucose [Mass/Vol] 98 mg/dL Normal 55 - 99 mg/dL [facility] POC Subsection POC Device SN [id number] Invalid Interpretation Code [facility] POC Subsection POC User ID [id number] Invalid Interpretation Code [facility] POC Subsection POC Username MOLLY RALPH Invalid Interpretation Code [facility] POC Subsection HEMATOLOGYOrdered By: SYSTEM SYSTEM on 08-08-2022 Basophils/100 WBC (Bld) 0.5 % Normal 0.0 - 2.0 % [facility] HemeAutoSS Basophils/Leukocytes Auto (Bld) [Pure # fraction] [...] AM) Normal Negative [facility] UA Auto SS [place].plasma/[place] .RBC (Bld) [Mass ratio] 0-3 /HPF Normal 0-3/HPF [facility] U[facility] Auto SS Nitrite Ql (U) Negative (08/08/22 10:01 AM) Normal Negative [facility] UA Auto SS pH (U) 5.5 *NA* (08/08/22 10:01 AM) Invalid Interpretation Code 5.0 - 9.0 [facility] UA Auto SS Protein (U) [Mass/Vol] Negative (08/08/22 10:01 AM) Normal Negative [facility] UA Auto SS Specific gravity (U) [Rel density] <=1.005 *NA* (08/08/22 10:01 AM) Invalid Interpretation Code 1.005 - 1.030 [facility] UA Auto SS UA Spec Desc Clean Catch (08/08/22 10:01 AM) Normal [facility] UA Auto SS Urobilinogen Qn (U) 0.1637610 {Lucila'U}/dL Normal 0.0 - 1.0 EU/dL [facility] UA Auto SS WBC Auto Ql (U) Negative (08/08/22 10:01 AM) Normal Negative [facility] UA Auto SS WBC LM.HPF (Urine sed) [#/Area] 0-5 /HPF Normal 0-5/HPF [facility] UA Auto SS CBC AUTO DIFFon 07-19-2022 BASO # 0.1 103/ul Normal 0.0-0.1 [facility] Comment on above: Performed By: #### I NFLUAB #### [facility] [address] [address] [address] Manuel Sandhu Basophils/100 WBC (Bld) 0.4 % Normal 0.2-2.0 [facility] Comment on above: Performed By: #### I NFLUAB #### [facility] [address] [address] [address] Maneul Sandhu EO # 0.3 103/ul Normal 0.0-0.7 [facility] Comment on above: Performed By: #### I NFLUAB #### [facility] [address] [address] [address] Manuel Sandhu Eosinophils/100 WBC (Bld) 2.4 % Normal 0.9-7.0 [facility] Comment on above: Performed By: #### I NFLUAB #### [facility] [address] [address] [address] Manuel Sandhu Erythrocyte distribution width (RBC) [Ratio] 13.7 % Normal 11.0-15.[address] [facility] Comment on above: Performed By: #### I NFLUAB #### [facility] [address] [place] [address] Dr. Manuel Sandhu Hematocrit (Bld) [Volume fraction] 36.5 % Normal 36.0-48.[address] [facility] Comment on above: Performed By: #### I NFLUAB #### [facility] [address] [place] [address] Dr. Manuel Sandhu Hemoglobin (Bld) [Mass/Vol] 12.3 g/dL Normal 12.0-16.[address] [facility] Comment on above: Performed By: #### I NFLUAB #### [facility] [address] [place] [address] Dr. Manuel Sandhu IG # 0.04 10e3/ul Critically high 0.00-0.03 [facility] Comment on above: Performed By: #### I NFLUAB #### [facility] [address] [place] [address] Dr. Manuel Sandhu IG % 0.3 % Normal 0.0-0.[address] [facility] Comment on above: Performed By: #### I NFLUAB #### [facility] [address] [place] [address] Dr. Manuel Sandhu LYMPH # 2.6 103/ul Normal 1.2-3.[address] [facility] Comment on above: Performed By: #### I NFLUAB #### [facility] [address] [place] [address] Dr. Manuel Sandhu Lymphocytes/100 WBC (Bld) 22.3 % Normal 20.5-60.[address] [facility] Comment on above: Performed By: #### I NFLUAB #### [facility] [address] [place] [address] Dr. Manuel Sandhu MANUAL DIFF REQ NO Normal [facility] Comment on above: Performed By: #### I NFLUAB #### [facility] [address] [address] [address] Manuel Sandhu MCH (RBC) [Entitic mass] 32.5 pg Normal 26.7-34.0 [facility] Comment on above: Performed By: #### I NFLUAB #### [facility] [address] [place] [address] Dr. Manuel Sandhu MCHC (RBC) [Mass/Vol] 33.7 g/dL Normal 29.9-35.2 [facility] Comment on above: Performed By: #### I NFLUAB #### [facility] [address] [place] [address] Dr. Manuel Sandhu MCV (RBC) [Entitic vol] 96.6 fL Normal 81.0-99.0 [facility] Comment on above: Performed By: #### I NFLUAB #### [facility] [address] [place] [address] Dr. Manuel Sandhu MONO # 0.6 103/ul Normal 0.3-0.8 [facility] Comment on above: Performed By: #### I NFLUAB #### [facility] [address] [place] [address] Dr. Manuel Sandhu Monocytes/100 WBC (Bld) 5.2 % Normal 1.7-12.0 [facility] Comment on above: Performed By: #### I NFLUAB #### [facility] [address] [place] [address] Dr. Manuel Sandhu NEUT # 8.2 103/ul Critically high 1.4-6.5 [facility] Comment on above: Performed By: #### I NFLUAB #### [facility] [address] [place] [address] Dr. Manuel Sandhu Neutrophils/100 WBC (Bld) 69.4 % Normal 43.0-75.0 [facility] Comment on above: Performed By: #### I NFLUAB #### [facility] [address] [place] [address] Dr. Maneul Sandhu Platelet mean volume (Bld) [Entitic vol] 11.2 fL Normal 9.5-13.5 [facility] Comment on above: Performed By: #### I NFLUAB #### [facility] [address] [address] [address] Manuel Sandhu PLT 308 103/ul Normal 150-[address] [facility] Comment on above: Performed By: #### I NFLUAB #### [facility] [address] [place] [address] Dr. Manuel Sandhu RBC 3.78 106/ul Critically low 4.20-5.40 [facility] Comment on above: Performed By: #### I NFLUAB #### [facility] [address] [address] [address] Manuel Sandhu WBC 11.8 103/ul Critically high 4.0-11.0 [facility] Comment on above: Performed By: #### I NFLUAB #### [facility] [address] [place] [address] Dr. Manuel Sandhu D-DIMERon 07-19-2022 D-DIMER 0.29 mg/L FEU Normal <=0.59 [facility] Comment on above: Performed By: #### U MICRO, ERUR #### [facility] [address] [place] [address] Dr. Manuel Sandhu D-DIMER COMMENTS SEE BELOW Normal [facility] Comment on above: Result Comment: Incr [...] Performed By: #### U MICRO, ERUR #### [facility] [address] [place] [address] Dr. Manuel Sandhu LIPASEon 07-19-2022 Lipase [Catalytic activity/Vol] 119.0 U/L Normal 73.0-393.0 [facility] Comment on above: Performed By: #### C MP, JENNIE, LIPA #### [facility] [address] [place] [address] Dr. Manuel Sandhu PROF 14(COMP METB)on 022 Albumin [Mass/Vol] 3.5 g/dL Normal 3.4-5.0 [facility] Comment on above: Performed By: #### C MP, JENNIE, LIPA #### [facility] [address] [place] [address] Dr. Manuel Sandhu Albumin/Globulin [Mass ratio] 1.0 {ratio} Normal [facility] Comment on above: Performed By: #### C MP, JENNIE, LIPA #### [facility] [address] [place] [address] Dr. Manuel Sandhu ALP [Catalytic activity/Vol] 65 U/L Normal 46-[address] [facility] Comment on above: Performed By: #### C MP, JENNIE, LIPA #### [facility] [address] [place] [address] Dr. Manuel Sandhu ALT [Catalytic activity/Vol] 33 U/L Normal 14-[address] [facility] Comment on above: Performed By: #### C MP, JENNIE, LIPA #### [facility] [address] [place] [address] Dr. Manuel Sandhu Anion gap [Moles/Vol] 10.8 mmol/L Normal [facility] Comment on above: Performed By: #### C MP, JENNIE, LIPA #### [facility] [address] [place] [address] Dr. Manuel Sandhu AST [Catalytic activity/Vol] 20 U/L Normal 15-[address] [facility] Comment on above: Performed By: #### C MP, JENNIE, LIPA #### [facility] [address] [place] [address] Dr. Manuel Sandhu Bilirubin [Mass/Vol] 0.1 mg/dL Critically low 0.2-1.[address] [facility] Comment on above: Performed By: #### C MP, JENNIE, LIPA #### [facility] [address] [place] [address] Dr. Manuel Sandhu Calcium [Mass/Vol] 8.7 mg/dL Normal 8.5-10.1 [facility] Comment on above: Performed By: #### C JENNIE PATRICK LIPA #### [facility] [address] [address] [address] Manuel Sandhu Chloride [Moles/Vol] 105 mmol/L Normal 98-[address] [facility] Comment on above: Performed By: #### C JENNIE PATRICK LIPA #### [facility] [address] [address] [address] Manuel Sandhu CO2 [Moles/Vol] 24.4 mmol/L Normal 21.0-32.0 [facility] Comment on above: Performed By: #### C JENNIE PATRICK LIPA #### [facility] [address] [place] [address] Dr. Manuel Sandhu Creatinine [Mass/Vol] 0.91 mg/dL Normal 0.55-1.[address] [facility] Comment on above: Performed By: #### C JENNIE PATRICK LIPA #### [facility] [address] [place] [address] Dr. Manuel Sandhu EGFR-AF CITIZ[place] >60 Normal >=60 [facility] Comment on above: Performed By: #### C JENNIE PATRICK LIPA #### [facility] [address] [place] [address] Dr. Manuel Sandhu EGFR-NON AF CITIZEN OF [place] >60 Normal >=[address] [facility] Comment on above: Performed By: #### C JENNIE PATRICK LIPA #### [facility] [address] [place] [address] Dr. Manuel Sandhu Globulin (S) [Mass/Vol] 3.4 g/dL Normal [facility] Comment on above: Performed By: #### C JENNIE PATRICK LIPA #### [facility] [address] [place] [address] Dr. Manuel Sandhu Glucose [Mass/Vol] 127 mg/dL Critically high 74-106 [facility] Comment on above: Performed By: #### C JENNIE PATRICK LIPA #### [facility] [address] [address] [address] Manuel Sandhu Potassium [Moles/Vol] 3.2 mmol/L Critically low 3.5-5.1 [facility] Comment on above: Performed By: #### C JENNIE PATRICK LIPA #### [facility] [address] [address] [address] Manuel Sandhu Protein [Mass/Vol] 6.9 g/dL Normal 6.4-8.2 [facility] Comment on above: Performed By: #### C JENNIE PATRICK LIPA #### [facility] [address] [address] [address] Manuel Sandhu Sodium [Moles/Vol] 137 mmol/L Normal 136-145 [facility] Comment on above: Performed By: #### C JENNIE PATRICK LIPA #### [facility] [address] [place] [address] Dr. Manuel Sandhu Urea nitrogen [Mass/Vol] 13.0 mg/dL Normal 7.0-18.[address] [facility] Comment on above: Performed By: #### C JENNIE PATRICK LIPA #### [facility] [address] [place] [address] Dr. Manuel Sandhu Urea nitrogen/Creatinine [Mass ratio] 14.3 mg/mg Normal [facility] Comment on above: Performed By: #### C JENNIE PATRICK LIPA #### [facility] [address] [place] [address] Dr. Manuel Sandhu PROTIMEon 07-19-2022 INR Coag (PPP) [Relative time] 0.97 {INR} Normal [facility] Comment on above: Performed By: #### P TT, PT #### [facility] [address] [place] [address] Dr. Manuel Sandhu INR GUIDELINES SEE BELOW Normal [facility] Comment on above: Result Comment: CHUY RED INR: 2.0 - 3.0 CONDITIONS NOT LISTED BELOW 2.5 - 3.5 FOR PROSTHETIC HEART VALVE REPLACEMENT 2.5 - 3.5 RECURRENT THROMBOSIS Performed By: #### P TT, PT #### [facility] [address] [place] [address] Dr. Manuel Sandhu PT Coag (PPP) [Time] 10.5 s Normal 9.0-11.[address] [facility] Comment on above: Performed By: #### P TT, PT #### [facility] [address] [address] [address] Manuel Sandhu PTTon 07-19-2022 aPTT Coag (Bld) [Time] 26.1 s Normal 22.3-36.2 [facility] Comment on above: Performed By: #### P TT, PT #### [facility] [address] [address] [address] Manuel Sandhu TROPONIN, HIGH SENSITIVITYon 07-19-2022 HSTROP 5.4 pg/mL Normal 4.0-51.[address] [facility] Comment on above: Result Comment: CUT- OFF POINTS HAVE BEEN ESTABLISHED BASED ON THE FOURTH UNIVERSAL DEFINITIONS OF MYOCARDIAL INFARCTION. THE UPPER REFERENCE LIMIT (URL) OF TROPONIN, DEFINED THE 99TH PERCENTILE OF cTnI DISTRIBUTION IN A REFERENCE POPULATION, HAS BEEN CONFIRMED THE DECISION THRESHOLD FOR [place] DIAGNOSIS. Performed By: #### U MICRO, ERUR #### [facility] [address] [place] [address] Dr. Manuel Sandhu HSTROP 5.1 pg/mL Normal 4.0-51.[address] [facility] Comment on above: Result Comment: CUT- OFF POINTS HAVE BEEN ESTABLISHED BASED ON THE FOURTH UNIVERSAL DEFINITIONS OF MYOCARDIAL INFARCTION. THE UPPER REFERENCE LIMIT (URL) OF TROPONIN, DEFINED THE 99TH PERCENTILE OF cTnI DISTRIBUTION IN A REFERENCE POPULATION, HAS BEEN CONFIRMED THE DECISION THRESHOLD FOR [place] DIAGNOSIS. Performed By: #### C MP, JENNIE, LIPA #### [facility] [address] [place] [address] Dr. Manuel Sandhu XR CHEST 1 Von [...] LUCIANA ALLEN Date: 2022-07-19 19:28 Normal [facility] Covid-19 PCR (CVD[facility])on 05-16 SARS-CoV-2 (COVID-19) RNA JOSÉ MIGUEL+probe Ql (Unsp spec) Not detected Normal NOT DETECTED [facility] Comment on above: Result Comment: When [...] for this test is supported by the [employer] and Human Service's declaration that [...] By: #### C JENNIE PATRICK LIPA #### [facility] [address] [place] [address] Dr. Manuel Sandhu XR CHEST 2 Von [...] CAROLYNE RALPH Date: 2022-06-12 10:12 Normal [facility] Covid-19 PCR (CVDTB[facility])on 05-15 SARS-CoV-2 (COVID-19) RNA JOSÉ MIGUEL+probe Ql (Unsp spec) Not detected Normal NOT DETECTED [facility] Comment on above: Result Comment: When [...] for this test is supported by the [employer] Human [employer]'s declaration that [...] used). Performed By: #### I NFLUAB #### [facility] [address] [place] [address] Dr. Manuel Sandhu CHEMISTRYOrdered By: SYSTEM SYSTEM [...] - 11.0 E9/L [facility] HemeAutoSS [facility]15 SARS-CoV-2 (COVID-19) RNA JOSÉ MIGUEL+probe Ql (Unsp spec) Detected Critically abnormal NOT DETECTED [facility] Comment on above: Result Comment: This test is not yet approved or cleared by the [place] FDA. When there are no FDA-approved or cleared tests available, and other criteria are met, FDA can make tests available under an emergency access mechanism called an Emergency Use Authorization (EUA). The EUA for this test is supported by the [employer] and Human Service's declaration that [...] By: #### C JENNIE PATRICK LIPA #### [facility] [address] [place] [address] Dr. Manuel Sandhu GROUP A STREP CULTUREon 07-2 5-2022 S. pyogenes Ag Ql (Unsp spec) Culture Observations: NEGATIVE FOR GROUP A STREPTOCOCCUS. Normal [facility] Comment on above: Performed By: #### U MICRO, ERUR #### [facility] [address] [place] [address] Dr. Manuel Sandhu INFLUENZA A AND B AGon 04-07 INFLUENZA A AG Negative Normal NEGATIVE SEE COMMENT [facility] Comment on above: Performed By: #### I NFLUAB #### [facility] [address] [address] [address] Manuel Sandhu INFLUENZA B AG Negative Normal NEGATIVE SEE COMMENT [facility] Comment on above: Performed By: #### I NFLUAB #### [facility] [address] [place] [address] Dr. Manuel Sandhu INTERNAL CONTROLS Within Normal Limits Normal Wi thin Normal Limits [facility] Comment on above: Performed By: #### I NFLUAB #### [facility] [address] [address] [address] Manuel Sandhu STREPT SCREENon 04-07-2022 STREP SCREEN A Negative Normal NEGATIVE [facility] Comment on above: Performed By: #### U MICRO, ERUR #### [facility] [address] [address] [address] Manuel Sandhu CHEMISTRYOrdered By: SYSTEM SYSTEM [...] (Urine sed) [#/Area] 0-2 /HPF Normal 0-2/HPF [facility] Aut o SS Glucose Test strip (U) [Mass/Vol] Negative (04/03/22 6:51 PM) Normal Negative [facility] UA Auto SS Hemoglobin Ql (U) Negative (04/03/22 6:51 PM) Normal Negative [facility] UA Auto SS Ketones (U) [Mass/Vol] Negative (04/03/22 6:51 PM) Normal Negative [facility] UA Auto SS [place].plasma/[place] .RBC (Bld) [Mass ratio] 0-3 /HPF Normal 0-3/HPF [facility] Auto SS Nitrite Ql (U) Negative (04/03/22 6:51 PM) Normal Negative [facility] UA Auto SS pH (U) 5.0 *NA* (04/03/22 6:51 PM) Invalid Interpretation Code 5.0 - 9.0 [facility] UA Auto SS Protein (U) [Mass/Vol] Negative (04/03/22 6:51 PM) Normal Negative [facility] UA Auto SS Specific gravity (U) [Rel density] 1.010 *NA* (04/03/22 6:51 PM) Invalid Interpretation Code 1.005 - 1.030 [facility] UA Auto SS UA Spec Desc Clean Catch (04/03/22 6:51 PM) Normal [facility] UA Auto SS Urobilinogen Qn (U) 0.6851090 {Lucila'U}/dL Normal 0.0 - 1.0 EU/dL [facility]A Auto SS WBC Auto Ql (U) Negative (04/03/22 6:51 PM) Normal Negative [facility] UA Auto SS WBC LM.HPF (Urine sed) [#/Area] 0-5 /HPF Normal 0-5/HPF [facility] UA Auto SS GROUP A STREP CULTUREon 01-13 S. pyogenes Ag Ql (Unsp spec) Culture Observations: NEGATIVE FOR GROUP A STREPTOCOCCUS. Normal [facility] Comment on above: Performed By: #### I NFLUAB #### [facility] [address] [place] [address] [id number] [address] Manuel Sandhu STREPT SCREENon 02-08-2022 STREP SCREEN A Negative Normal NEGATIVE [facility] Comment on above: Performed By: #### I NFLUAB #### [facility] [address] [address] [address] Manuel Sandhu CBC AUTO DIFFon 01-30-2022 BASO # 0.1 103/ul Normal 0.0-0.[address] [facility] Comment on above: Performed By: #### C BC #### [facility] [address] [address] [address] Manuel Sandhu Basophils/100 WBC (Bld) 0.4 % Normal 0.2-2.[address] [facility] Comment on above: Performed By: #### C BC #### [facility] [address] [address] [address] Manuel Sandhu EO # 0.4 103/ul Normal 0.0-0.[address] [facility] Comment on above: Performed By: #### C BC #### [facility] [address] [place] [address] Dr. Manuel Sandhu Eosinophils/100 WBC (Bld) 3.0 % Normal 0.9-7.[address] [facility] Comment on above: Performed By: #### C BC #### [facility] [address] [place] [address] Dr. Manuel Sandhu Erythrocyte distribution width (RBC) [Ratio] 13.3 % Normal 11.0-15.[address] [facility] Comment on above: Performed By: #### C BC #### [facility] [address] [place] [address] Dr. Manuel Sandhu Hematocrit (Bld) [Volume fraction] 36.8 % Normal 36.0-48.[address] [facility] Comment on above: Performed By: #### C BC #### [facility] [address] [place] [address] Dr. Manuel Sandhu Hemoglobin (Bld) [Mass/Vol] 12.2 g/dL Normal 12.0-16.[address] [facility] Comment on above: Performed By: #### C BC #### [facility] [address] [place] [address] Dr. Manuel Sandhu IG # 0.04 10e3/ul Critically high 0.00-0.03 [facility] Comment on above: Performed By: #### C BC #### [facility] [address] [place] [address] Dr. Manuel Sandhu IG % 0.3 % Normal 0.0-0.[address] [facility] Comment on above: Performed By: #### C BC #### [facility] [address] [place] [address] Dr. Manuel Sandhu LYMPH # 2.8 103/ul Normal 1.2-3.8 [facility] Comment on above: Performed By: #### C BC #### [facility] [address] [place] [address] Dr. Manuel Sandhu Lymphocytes/100 WBC (Bld) 23.0 % Normal 20.5-60.0 [facility] Comment on above: Performed By: #### C BC #### [facility] [address] [place] [address] Dr. Manuel Sandhu MANUAL DIFF REQ NO Normal [facility] Comment on above: Performed By: #### C BC #### [facility] [address] [place] [address] Dr. Manuel Sandhu MCH (RBC) [Entitic mass] 32.1 pg Normal 26.7-34.[address] [facility] Comment on above: Performed By: #### C BC #### [facility] [address] [place] [address] Dr. Manuel Sandhu MCHC (RBC) [Mass/Vol] 33.2 g/dL Normal 29.9-35.2 [facility] Comment on above: Performed By: #### C BC #### [facility] [address] [place] [address] Dr. Manuel Sandhu MCV (RBC) [Entitic vol] 96.8 fL Normal 81.0-99.0 [facility] Comment on above: Performed By: #### C BC #### [facility] [address] [place] [address] Dr. Manuel Sandhu MONO # 0.7 103/ul Normal 0.3-0.8 [facility] Comment on above: Performed By: #### C BC #### [facility] [address] [place], [place] [id number] Dr. Manuel Sandhu Monocytes/100 WBC (Bld) 5.6 % Normal 1.7-12.0 [facility] Comment on above: Performed By: #### C BC #### [facility] [address] [place] [address] Dr. Manuel Sandhu NEUT # 8.2 103/ul Critically high 1.4-6.5 [facility] Comment on above: Performed By: #### C BC #### [facility] [address] [place] [address] Dr. Manuel Sandhu Neutrophils/100 WBC (Bld) 67.7 % Normal 43.0-75.0 [facility] Comment on above: Performed By: #### C BC #### [facility] [address] [place] [address] Dr. Manuel Sandhu Platelet mean volume (Bld) [Entitic vol] 11.2 fL Normal 9.5-13.5 [facility] Comment on above: Performed By: #### C BC #### [facility] [address] [place] [address] Dr. Manuel Sandhu PLT 312 103/ul Normal 150-450 [facility] Comment on above: Performed By: #### C BC #### [facility] [address] [place] [address] Dr. Manuel Sandhu RBC 3.80 106/ul Critically low 4.20-5.40 [facility] Comment on above: Performed By: #### C BC #### [facility] [address] [place] [address] Dr. Manuel Sandhu WBC 12.1 103/ul Critically high 4.0-11.0 [facility] Comment on above: Performed By: #### C BC #### [facility] [address] [place] [address] Dr. Manuel Sandhu [facility]on [facility]-12 SARS-CoV-2 (COVID-19) RNA JOSÉ MIGUEL+probe Ql (Unsp spec) Not detected Normal NOT DETECTED [facility] Comment on above: Result Comment: This test is not yet approved or cleared by the [place] FDA. When there are no FDA-approved or cleared tests available, and other criteria are met, FDA can make tests available under an emergency access mechanism called an Emergency Use Authorization (EUA). The EUA for this test is supported by the Superior of Health and Human Service's (HHS's) declaration [...] SARS-CoV-2. Performed By: #### C VDTB #### [facility] [address] [place] [address] Dr. Manuel Sandhu DRUG SCREEN RAPID (URINE)on 01-30-2022 AMP Negative Normal NEGATIVE [facility] Comment on above: Performed By: #### U MICRO, ERUR #### [facility] [address] [place] [address] Dr. Manuel Sandhu BAR Negative Normal NEGATIVE [facility] Comment on above: Performed By: #### U MICRO, ERUR #### [facility] [address] [place] [address] Dr. Manuel Sandhu BUP Negative Normal NEGATIVE [facility] Comment on above: Performed By: #### U MICRO, ERUR #### [facility] [address] [place] [address] Dr. Manuel Sandhu BZO Negative Normal NEGATIVE [facility] Comment on above: Performed By: #### U MICRO, ERUR #### [facility] [address] [place] [address] Dr. Manuel Sandhu WISAM Negative Normal NEGATIVE [facility] Comment on above: Performed By: #### U MICRO, ERUR #### [facility] [address] [place] [address] Dr. Manuel Sandhu CUT-OFFS SEE BELOW Normal [facility] Comment on above: Result Comment: AMP [...] Performed By: #### U MICRO, ERUR #### [facility] [address] [place] [address] Dr. Manuel Sandhu DRUG CUT HEADER DRUG CLASS TEST SYST EM CUT-OFF CONCENTRATIONS ARE FOLLOWS: Normal [facility] Comment on above: Performed By: #### U MICRO, ERUR #### [facility] [address] [place] [address] Dr. Manuel Sandhu mAMP Negative Normal NEGATIVE [facility] Comment on above: Performed By: #### U MICRO, ERUR #### [facility] [address] [place] [address] Dr. Manuel Sandhu MTD Negative Normal NEGATIVE [facility] Comment on above: Performed By: #### U MICRO, ERUR #### [facility] [address] [place] [address] Dr. Manuel Sandhu OPI Negative Normal NEGATIVE [facility] Comment on above: Performed By: #### U MICRO, ERUR #### [facility] [address] [place] [address] Dr. Manuel Sandhu OXY Negative Normal NEGATIVE [facility] Comment on above: Performed By: #### U MICRO, ERUR #### [facility] [address] [place] [address] Dr. Manuel Sandhu PCP Negative Normal NEGATIVE [facility] Comment on above: Performed By: #### U MICRO, ERUR #### [facility] [address] [place] [address] Dr. Manuel Sandhu PPX Negative Normal NEGATIVE [facility] Comment on above: Performed By: #### U MICRO, ERUR #### [facility] [address] [address] [address] Manuel Sandhu TCA Negative Normal NEGATIVE [facility] Comment on above: Performed By: #### U MICRO, ERUR #### [facility] [address] [address] [address] Manuel Sandhu THC Negative Normal NEGATIVE [facility] Comment on above: Performed By: #### U MICRO, ERUR #### [facility] [address] [address] [address] Manuel Sandhu ER URINE PROFILEon 2 Bilirubin Ql (U) Negative Normal NEGATIVE [facility] Comment on above: Performed By: #### U MICRO, ERUR #### [facility] [address] [address] [address] Manuel Sandhu Clarity (U) CLEAR Normal CLEAR [facility] Comment on above: Performed By: #### U MICRO, ERUR #### [facility] [address] [address] [address] Manuel Sandhu Color (U) LT. YELLOW Normal YELLOW [facility] Comment on above: Performed By: #### U MICRO, ERUR #### [facility] [address] [address] [address] Manuel CUNHA A micrscopic examination will be performed if indicated. Normal [facility] Comment on above: Performed By: #### U MICRO, ERUR #### [facility] [address] [address] [address] Manuel Sandhu Glucose Ql (U) Negative Normal NEGATIVE [facility] Comment on above: Performed By: #### U MICRO, ERUR #### [facility] [address] [address] [address] Manuel Sandhu Hemoglobin Ql (U) Negative Normal NEGATIVE [facility] Comment on above: Performed By: #### U MICRO, ERUR #### [facility] [address] [address] [address] Manuel Sandhu Ketones Ql (U) Negative Normal NEGATIVE [facility] Comment on above: Performed By: #### U MICRO, ERUR #### [facility] [address] [address] [address] Manuel Sandhu LEUKOCYTES Negative Normal NEGATIVE [facility] Comment on above: Performed By: #### U MICRO, ERUR #### [facility] [address] [address] [address] Manuel Sandhu Nitrite Ql (U) Negative Normal NEGATIVE [facility] Comment on above: Performed By: #### U MICRO, ERUR #### [facility] [address] [address] [address] Manuel Sandhu pH (U) 5.5 [pH] Normal 5-[address] [facility] Comment on above: Performed By: #### U MICRO, ERUR #### [facility] [address] [place] [address] Dr. Manuel Sandhu SPEC GRAVITY <=1.005 Abnormal 1.005-<=1.[address] [place] [address] Comment on above: Performed By: #### U MICRO, ERUR #### [facility] [address] [address] [address] Manuel Sandhu UA PROTEIN Negative Normal NEGATIVE/ TRACE [facility] Comment on above: Performed By: #### U MICRO, ERUR #### [facility] [address] [place] [address] Dr. Manuel Sandhu UR MICRO IND NOT INDICATED Normal [facility] Comment on above: Performed By: #### U MICRO, ERUR #### [facility] [address] [address] [address] Manuel Sandhu Urobilinogen Qn (U) 0.2 {Lucila'U}/dL Normal 0.2 - 1. [address] [facility] Comment on above: Performed By: #### U MICRO, ERUR #### [facility] [address] [place] [address] Dr. Manuel Sandhu ETHANOL (BLD ALC)on 01-31-20 ALC NOTE NOTE: 80 mg/dl is th e legal limit for a blood alcohol level Normal [facility] Comment on above: Performed By: #### I NFLUAB #### [facility] [address] [address] [address] Manuel Sandhu Ethanol [Mass/Vol] 47 mg/dL Normal [facility] Comment on above: Performed By: #### I NFLUAB #### [facility] [address] [address] [address] Manuel Sandhu PREG HCG QUALon 01-30-2022 , QUAL Negative Normal NEGATIVE [facility] Comment on above: Performed By: #### U MICRO, ERUR #### [facility] [address] [address] [address] Manuel Sandhu PROF 14(COMP METB)on 022 Albumin [Mass/Vol] 3.8 g/dL Normal 3.4-5.0 [facility] Comment on above: Performed By: #### I NFLUAB #### [facility] [address] [address] [address] Manuel Sandhu Albumin/Globulin [Mass ratio] 1.1 {ratio} Normal [facility] Comment on above: Performed By: #### I NFLUAB #### [facility] [address] [address] [address] Manuel Sandhu ALP [Catalytic activity/Vol] 88 U/L Normal 46-[address] [facility] Comment on above: Performed By: #### I NFLUAB #### [facility] [address] [address] [address] Manuel Sandhu ALT [Catalytic activity/Vol] 30 U/L Normal 14-[address] [facility] Comment on above: Performed By: #### I NFLUAB #### [facility] [address] [address] [address] Manuel Sandhu Anion gap [Moles/Vol] 17.3 mmol/L Normal [facility] Comment on above: Performed By: #### I NFLUAB #### [facility] [address] [address] [address] Manuel Sandhu AST [Catalytic activity/Vol] 17 U/L Normal 15-[address] [facility] Comment on above: Performed By: #### I NFLUAB #### [facility] [address] [address] [address] Manuel Sandhu Bilirubin [Mass/Vol] 0.2 mg/dL Normal 0.2-1.[address] [facility] Comment on above: Performed By: #### I NFLUAB #### [facility] [address] [place] [address] Dr. Manuel Sandhu Calcium [Mass/Vol] 8.9 mg/dL Normal 8.5-10.1 [facility] Comment on above: Performed By: #### I NFLUAB #### [facility] [address] [address] [address] Manuel Sandhu Chloride [Moles/Vol] 109 mmol/L Critically high 98-[address] [facility] Comment on above: Performed By: #### I NFLUAB #### [facility] [address] [place] [address] Dr. Manuel Sandhu CO2 [Moles/Vol] 20.2 mmol/L Critically low 21.0-32.[address] [facility] Comment on above: Performed By: #### I NFLUAB #### [facility] [address] [place] [address] Dr. Manuel Sandhu Creatinine [Mass/Vol] 0.69 mg/dL Normal 0.55-1.[address] [facility] Comment on above: Performed By: #### I NFLUAB #### [facility] [address] [place] [address] Dr. Manuel Sandhu EGFR-AF [place]IZ[place] >60 Normal >=60 [facility] Comment on above: Performed By: #### I NFLUAB #### [facility] [address] [place] [address] Dr. Manuel Sandhu EGFR-NON AF CITIZ[place] >60 Normal >=[address] [facility] Comment on above: Performed By: #### I NFLUAB #### [facility] [address] [place] [address] Dr. Manuel Sandhu Globulin (S) [Mass/Vol] 3.6 g/dL Normal [facility] Comment on above: Performed By: #### I NFLUAB #### [facility] [address] [address] [address] Manuel Sandhu Glucose [Mass/Vol] 79 mg/dL Normal 74-106 [facility] Comment on above: Performed By: #### I NFLUAB #### [facility] [address] [address] [address] Manuel Sandhu Potassium [Moles/Vol] 3.5 mmol/L Normal 3.5-5.[address] [facility] Comment on above: Performed By: #### I NFLUAB #### [facility] [address] [address] [address] Manuel Sandhu Protein [Mass/Vol] 7.4 g/dL Normal 6.4-8.2 [facility] Comment on above: Performed By: #### I NFLUAB #### [facility] [address] [address] [address] Manuel Sandhu Sodium [Moles/Vol] 143 mmol/L Normal 136-145 [facility] Comment on above: Performed By: #### I NFLUAB #### [facility] [address] [address] [address] Manuel Sandhu Urea nitrogen [Mass/Vol] 18.0 mg/dL Normal 7.0-18.[address] [facility] Comment on above: Performed By: #### I NFLUAB #### [facility] [address] [address] [address] Manuel Sandhu Urea nitrogen/Creatinine [Mass ratio] 26.1 mg/mg Normal [facility] Comment on above: Performed By: #### I NFLUAB #### [facility] [address] [address] [address] Manuel Sandhu AMYLASEon 11-16-2021 Amylase [Catalytic activity/Vol] 60 U/L Normal 31-[address] [facility] Comment on above: Performed By: #### C MP, JENNIE, LIPA #### [facility] [address] [address] [address] Manuel Sandhu CBC AUTO DIFFon 11-16-2021 BASO # 0.1 103/ul Normal 0.0-0.[address] [facility] Comment on above: Performed By: #### C JENNIE PATRICK LIPA #### [facility] [address] [place] [address] Dr. Manuel Sandhu Basophils/100 WBC (Bld) 0.5 % Normal 0.2-2.[address] [facility] Comment on above: Performed By: #### C JENNIE PATRICK LIPA #### [facility] [address] [place] [address] Dr. Manuel Sandhu EO # 0.3 103/ul Normal 0.0-0.[address] [facility] Comment on above: Performed By: #### C JENNIE PATRICK LIPA #### [facility] [address] [place] [address] Dr. Manuel Sandhu Eosinophils/100 WBC (Bld) 3.1 % Normal 0.9-7.[address] [facility] Comment on above: Performed By: #### C JENNIE PATRICK LIPA #### [facility] [address] [place] [address] Dr. Manuel Sandhu Erythrocyte distribution width (RBC) [Ratio] 13.4 % Normal 11.0-15.[address] [facility] Comment on above: Performed By: #### C JENNIE PATRICK LIPA #### [facility] [address] [place] [address] Dr. Manuel Sandhu Hematocrit (Bld) [Volume fraction] 39.0 % Normal 36.0-48.[address] [facility] Comment on above: Performed By: #### C JENNIE PATRICK LIPA #### [facility] [address] [place] [address] Dr. Manuel Sandhu Hemoglobin (Bld) [Mass/Vol] 12.8 g/dL Normal 12.0-16.[address] [facility] Comment on above: Performed By: #### C JENNIE PATRICK LIPA #### [facility] [address] [place] [address] Dr. Manuel Sandhu IG # 0.03 10e3/ul Normal 0.00-0.[address] [facility] Comment on above: Performed By: #### C MP, JENNIE, LIPA #### [facility] [address] [place] [address] Dr. Manuel Sandhu IG % 0.3 % Normal 0.0-0.[address] [facility] Comment on above: Performed By: #### C MP, JENNIE, LIPA #### [facility] [address] [place] [address] Dr. Manuel Sandhu LYMPH # 2.8 103/ul Normal 1.2-3.[address] [facility] Comment on above: Performed By: #### C MP, JENNIE, LIPA #### [facility] [address] [place] [address] Dr. Manuel Sandhu Lymphocytes/100 WBC (Bld) 29.9 % Normal 20.5-60.[address] [facility] Comment on above: Performed By: #### C MP, JENNIE, LIPA #### [facility] [address] [place] [address] Dr. Manuel Sandhu MANUAL DIFF REQ NO Normal [facility] Comment on above: Performed By: #### C MP, JENNIE, LIPA #### [facility] [address] [place] [address] Dr. Manuel Sandhu MCH (RBC) [Entitic mass] 32.2 pg Normal 26.7-34.[address] [facility] Comment on above: Performed By: #### C MP, JENNIE, LIPA #### [facility] [address] [place] [address] Dr. Manuel Sandhu MCHC (RBC) [Mass/Vol] 32.8 g/dL Normal 29.9-35.[address] [facility] Comment on above: Performed By: #### C MP, JENNIE, LIPA #### [facility] [address] [place] [address] Dr. Manuel Sandhu MCV (RBC) [Entitic vol] 98.0 fL Normal 81.0-99.[address] [facility] Comment on above: Performed By: #### C MP, JENNIE, LIPA #### [facility] [address] [place] [address] Dr. Manuel Sandhu MONO # 0.7 103/ul Normal 0.3-0.8 [facility] Comment on above: Performed By: #### C JENNIE PATRICK LIPA #### [facility] [address] [place] [address] Dr. Manuel Sandhu Monocytes/100 WBC (Bld) 7.7 % Normal 1.7-12.[address] [facility] Comment on above: Performed By: #### C JENNIE PATRICK LIPA #### [facility] [address] [place] [address] Dr. Manuel Sandhu NEUT # 5.5 103/ul Normal 1.4-6.[address] [facility] Comment on above: Performed By: #### C JENNIE PATRICK LIPA #### [facility] [address] [place] [address] Dr. Manuel Sandhu Neutrophils/100 WBC (Bld) 58.5 % Normal 43.0-75.0 [facility] Comment on above: Performed By: #### C JENNIE PATRICK LIPA #### [facility] [address] [place] [address] Dr. Manuel Sandhu Platelet mean volume (Bld) [Entitic vol] 11.7 fL Normal 9.5-13.5 [facility] Comment on above: Performed By: #### C JENNIE PATRICK LIPA #### [facility] [address] [place] [address] Dr. Manuel Sandhu PLT 301 103/ul Normal 150-450 [facility] Comment on above: Performed By: #### C JENNIE PATRICK LIPA #### [facility] [address] [place] [address] Dr. Manuel Sandhu RBC 3.98 106/ul Critically low 4.20-5.40 [facility] Comment on above: Performed By: #### C JENNIE PATRICK LIPA #### [facility] [address] [place] [address] Dr. Manuel Sandhu WBC 9.3 103/ul Normal 4.0-11.0 [facility] Comment on above: Performed By: #### C JENNIE PATRICK LIPA #### [facility] [address] [id number] Manuel Sandhu CT ABD/PELVIS WO CONon [...] and adjacent pancreas. Electronically authenticated by: HARMONY PEREZJAIME Date: 2021-11-16 19:55 Normal [facility] ER URINE PROFILEon 2 Bilirubin Ql (U) Negative Normal NEGATIVE [facility] Comment on above: Performed By: #### C MP, JENNIE, LIPA #### [facility] [address] [place] [address] Dr. Manuel Sandhu Clarity (U) CLEAR Normal CLEAR [facility] Comment on above: Performed By: #### C MP, JENNIE, LIPA #### [facility] [address] [place] [address] Dr. Manuel Sanduh Color (U) LT. YELLOW Normal YELLOW [facility] Comment on above: Performed By: #### C MP, JENNIE, LIPA #### [facility] [address] [address] [address] Manuel Sandhu ERUAHD A micrscopic examination will be performed if indicated. Normal [facility] Comment on above: Performed By: #### C MP, JENNIE, LIPA #### [facility] [address] [place] [address] Dr. Manuel Sandhu Glucose Ql (U) Negative Normal NEGATIVE [facility] Comment on above: Performed By: #### C MP, JENNIE, LIPA #### [facility] [address] [address] [address] Manuel Sandhu Hemoglobin Ql (U) Negative Normal NEGATIVE [facility] Comment on above: Performed By: #### C MP, JENNIE, LIPA #### [facility] [address] [place] [address] Dr. Manuel Sandhu Ketones Ql (U) Negative Normal NEGATIVE [facility] Comment on above: Performed By: #### C MP, JENNIE, LIPA #### [facility] [address] [place] [address] Dr. Manuel Sandhu LEUKOCYTES Negative Normal NEGATIVE [facility] Comment on above: Performed By: #### C CELINA JENNIE, LIPA #### [facility] [address] [place] [address] Dr. Manuel Sandhu Nitrite Ql (U) Negative Normal NEGATIVE [facility] Comment on above: Performed By: #### C CELINA JENNIE, LIPA #### [facility] [address] [place] [address] Dr. Manuel Sandhu pH (U) 7.0 [pH] Normal 5-9 [facility] Comment on above: Performed By: #### C JENNIE PATRICK, LIPA #### [facility] [address] [place] [address] Dr. Manuel Sandhu SPEC GRAVITY <=1.005 Abnormal 1.005-<=1.[address] [facility] Comment on above: Performed By: #### C CELINA JENNIE, LIPA #### [facility] [address] [place] [address] Dr. Manuel Sandhu UA PROTEIN Negative Normal NEGATIVE/ TRACE [facility] Comment on above: Performed By: #### C JENNIE PATRICK, LIPA #### [facility] [address] [place] [address] Dr. Manuel Sandhu UR MICRO IND NOT INDICATED Normal [facility] Comment on above: Performed By: #### C JENNIE PATRICK, LIPA #### [facility] [address] [place] [address] Dr. Manuel Sandhu Urobilinogen Qn (U) 0.2 {Lucila'U}/dL Normal 0.2 - 1. [address] [facility] Comment on above: Performed By: #### C JENNIE PATRICK, LIPA #### [facility] [address] [place] [address] Dr. Manuel Sandhu LIPASEon 11-16-2021 Lipase [Catalytic activity/Vol] 78.0 U/L Normal 23.0-300.[address] [facility] Comment on above: Performed By: #### C JENNIE PATRICK LIPA #### [facility] [address] [address] [address] Manuel Sandhu URon 11-16-2021 , QUAL Negative Normal NEGATIVE [facility] Comment on above: Performed By: #### C MP, JENNIE, LIPA #### [facility] [address] [address] [address] Manuel Sandhu PROF 14(COMP METB)on 022 Albumin [Mass/Vol] 4.1 g/dL Normal 3.5-5.0 [facility] Comment on above: Performed By: #### C MP, JENNIE, LIPA #### [facility] [address] [address] [address] Manuel Sandhu Albumin/Globulin [Mass ratio] 1.1 {ratio} Normal [facility] Comment on above: Performed By: #### C MP, JENNIE, LIPA #### [facility] [address] [place] [address] Dr. Manuel Sandhu ALP [Catalytic activity/Vol] 102 U/L Normal 38-[address] [facility] Comment on above: Performed By: #### C MP, JENNIE, LIPA #### [facility] [address] [place] [address] Dr. Manuel Sandhu ALT [Catalytic activity/Vol] 39 U/L Normal 9-[address] [facility] Comment on above: Performed By: #### C MP, JENNIE, LIPA #### [facility] [address] [address] [address] Manuel Sandhu Anion gap [Moles/Vol] 11.5 mmol/L Normal [facility] Comment on above: Performed By: #### C MP, JENNIE, LIPA #### [facility] [address] [place] [address] Dr. Manuel Sandhu AST [Catalytic activity/Vol] 28 U/L Normal 14-[address] [facility] Comment on above: Performed By: #### C MP, JENNIE, LIPA #### [facility] [address] [address] [address] Manuel Sandhu Bilirubin [Mass/Vol] 0.2 mg/dL Normal 0.2-1.[address] [facility] Comment on above: Performed By: #### C JENNIE PATRICK, LIPA #### [facility] [address] [place] [address] Dr. Manuel Sanduh Calcium [Mass/Vol] 9.1 mg/dL Normal 8.4-10.2 [facility] Comment on above: Performed By: #### C CELINA JENNIE, LIPA #### [facility] [address] [place] [address] Dr. Manuel Sandhu Chloride [Moles/Vol] 105 mmol/L Normal 98-107 [facility] Comment on above: Performed By: #### C JENNIE PATRICK, LIPA #### [facility] [address] [place] [address] Dr. Manuel Sandhu CO2 [Moles/Vol] 25.0 mmol/L Normal 22.0-30.0 [facility] Comment on above: Performed By: #### C CELINA JENNIE, LIPA #### [facility] [address] [place] [address] Dr. Manuel Sandhu Creatinine [Mass/Vol] 0.77 mg/dL Normal 0.52-1.[address] [facility] Comment on above: Performed By: #### C JENNIE PATRICK, LIPA #### [facility] [address] [place] [address] Dr. Manuel Sandhu EGFR-AF [place]IZ[place] >60 Normal >=60 [facility] Comment on above: Performed By: #### C CELINA JENNIE, LIPA #### [facility] [address] [place] [address] Dr. Manuel Sandhu EGFR-NON AF CITIZEN OF [place] >60 Normal >=60 [facility] [facility] Comment on above: Performed By: #### C CELINA JENNIE, LIPA #### [facility] [address] [place] [address] Dr. Manuel Sandhu Globulin (S) [Mass/Vol] 3.8 g/dL Normal [facility] Comment on above: Performed By: #### C CELINA JENNIE, LIPA #### [facility] [address] [place] [address] Dr. Manuel Sandhu Glucose [Mass/Vol] 85 mg/dL Normal 74-106 [facility] Comment on above: Performed By: #### C JENNIE PATRICK LIPA #### [facility] [address] [address] [address] Manuel Sandhu Potassium [Moles/Vol] 3.5 mmol/L Normal 3.4-5.[address] [facility] Comment on above: Performed By: #### C JENNIE PATRICK LIPA #### [facility] [address] [address] [address] Manuel Sandhu Protein [Mass/Vol] 7.9 g/dL Normal 6.1-8.2 [facility] Comment on above: Performed By: #### C JENNIE PATRICK LIPA #### [facility] [address] [address] [address] Manuel Sandhu Sodium [Moles/Vol] 138 mmol/L Normal 137-145 [facility] Comment on above: Performed By: #### C JENNIE PATRICK LIPA #### [facility] [address] [address] [address] Manuel Sandhu Urea nitrogen [Mass/Vol] 18.0 mg/dL Critically high 7.0-17.[address] [facility] Comment on above: Performed By: #### C JENNIE PATRICK LIPA #### [facility] [address] [place] [address] Dr. Manuel Sandhu Urea nitrogen/Creatinine [Mass ratio] 23.4 mg/mg Normal [facility] Comment on above: Performed By: #### C JENNIE PATRICK LIPA #### [facility] [address] ABDOMEN PELVIS W [...] in the pelvis, which could be physiologic. ERUCES Phone: EXAMINATION: CT OF T HE ABDOMEN [...] grade 1 anterolisthesis at L5-S1 is unchanged. [employer] Work Phone: Dario, Mhpn Incoming Radiant Results From [employer] - 02/04/2021 4:32 PM EDT EXAMINATION: CT [...] in the pelvis, which could be physiologic. ERUCES Phone: ERUCES Phone: Basic Metabolic Panel w/ Ref brannon to MGOrdered By: Ruiz Joel on 02-01-2021 Anion gap [Moles/Vol] 15 mmol/L 9 - 17 mmol/L [employer]UCES Phone: Calcium [Mass/Vol] 8.5 mg/dL Low 8.6 - 10. 4 mg/dL [employer] Phone: Chloride [Moles/Vol] 107 mmol/L 98 - 10 7 mmol/L [employer] Phone: CO2 [Moles/Vol] 16 mmol/L Low 20 - 31 mmol/L [employer] Phone: Creatinine [Mass/Vol] 0.36 mg/dL Low 0.50 - 0.90 mg/dL [employer]UCES Phone: GFR >60 >60 mL/min [employer] Phone: GFR Non- >60 >60 mL/min ERUCES Phone: GFR/1.73 sq M.predicted MDRD (S/P/Bld) [Vol rate/Area] ERUCES Phone: Comment on above: Average GFR for 30-3 9 years old: 107 mL/min/1.73sq m Chronic Kidney Disease: <60 mL/min/1.73sq m Kidney failure: <15 mL/min/1.73sq m eGFR calculated using average adult body mass. Additional eGFR calculator available at: http://www.[employer]/multiple_crcl_2012.htm GFR/1.73 sq M.predicted MDRD (S/P/Bld) [Vol rate/Area] NOT REPORTED [employer]UCES Phone: Glucose [Mass/Vol] 79 mg/dL 70 - 99 mg/dL [employer] Phone: Interpretation and review of laboratory results Abnormal [employer] Phone: Potassium [Moles/Vol] 3.7 mmol/L 3.7 - 5.3 mmol/L [employer] Work Phone: Sodium [Moles/Vol] 138 mmol/L 135 - 144 mmol/L [employer] Phone: Urea nitrogen (BldV) [Mass/Vol] 2 mg/dL Low 6 - 20 mg/dL [employer] Phone: Urea nitrogen/Creatinine (Bld) [Mass ratio] NOT REPORTED ERUCES Phone: [employer] Work Phone: CBC WITH AUTO DIFFERENTIALOr dered By: Ruiz Joel on 02-01-2021 Absolute Eos # 0.28 [employer] [facility] Work Phone: Absolute Immature Granulocyte 0.06 ERUCES Phone: Absolute Lymph # 1.62 [employer] [facility] Work Phone: Absolute Dupage # 1.46 High [employer] [facility] Work Phone: Basophils (Bld) [#/Vol] 0.04 10*3/uL [employer]UCES Phone: Basophils/100 WBC (Bld) 0 % 0 - 2 % [employer]UCES Phone: Differential Type NOT REPORTED [employer]UCES Phone: Eosinophils/100 WBC (Bld) 3 % 1 - 4 % [employer]UC[employer] Phone: Hematocrit (Bld) [Volume fraction] 33.7 % Low 36.3 - 47.1 % [employer] Phone: Hemoglobin.gastrointes tinal spec 1 Ql (Stl) 10.3 g/dL Low 11.9 - 15.1 g/dL [employer] Phone: Immature granulocytes/100 WBC (Bld) 1 % High 0 ERUCES Phone: Interpretation and review of laboratory results Abnormal [employer] Phone: Lymphocytes/100 WBC (Bld) 14 % Low 24 - 43 % [employer] Phone: MCH (RBC) [Entitic mass] 29.9 pg 25.2 - 33.5 pg [employer] Phone: MCHC (RBC) [Mass/Vol] 30.6 g/dL 28.4 - 34.8 g/dL [employer] Phone: MCV (RBC) [Entitic vol] 98.0 fL 82.6 - 102.9 fL [employer] Phone: Monocytes/100 WBC (Bld) 13 % High 3 - 12 % [employer] Phone: NRBC Automated 0.0 0.0 per 100 WBC [employer]UC[employer] Phone: Platelet distribution width (Bld) [Ratio] 13.4 % 11.8 - 14.4 % [employer] Phone: Platelet Estimate NOT REPORTED [employer]UCES Phone: Platelet mean volume (Bld) [Entitic vol] 11.6 fL 8.1 - 13.5 fL [employer] Phone: Platelets (Bld) [#/Vol] 392 10*3/uL [employer] Phone: RBC (Bld) [#/Vol] 3.44 10*6/uL Low 3.95 - 5.1 1 m/uL [employer]UCES Phone: RBC (Bld) [#/Vol] NOT REPORTED [employer] Work Phone: Segmented neutrophils/100 WBC (Bld) 69 % High 36 - 65 % [employer] Work Phone: Segs Absolute 7.88 [employer] Work Phone: WBC (Bld) [#/Vol] 11.3 10*3/uL ERUCES Phone: WBC (Bld) [#/Vol] NOT REPORTED ERUCES Phone: ERUCES Phone: Basic Metabolic Panel w/ Ref brannon to MGOrdered By: Nicolasa Le on 01-31-2021 Anion gap [Moles/Vol] 17 mmol/L 9 - 17 mmol/L [employer] Phone: Calcium [Mass/Vol] 8.7 mg/dL 8.6 - 10. 4 mg/dL [employer] Phone: Chloride [Moles/Vol] 105 mmol/L 98 - 10 7 mmol/L [employer] Phone: CO2 [Moles/Vol] 15 mmol/L Low 20 - 31 mmol/L [employer] Phone: Creatinine [Mass/Vol] 0.36 mg/dL Low 0.50 - 0.90 mg/dL [employer] Phone: GFR >60 >60 mL/min [employer] Work Phone: GFR Non- >60 >60 mL/min ERUCES Phone: GFR/1.73 sq M.predicted MDRD (S/P/Bld) [Vol rate/Area] ERUCES Phone: Comment on above: Average GFR for 30-3 9 years old: 107 mL/min/1.73sq m Chronic Kidney Disease: <60 mL/min/1.73sq m Kidney failure: <15 mL/min/1.73sq m eGFR calculated using average adult body mass. Additional eGFR calculator available at: http://www.[employer]/multiple_crcl_2012.htm GFR/1.73 sq M.predicted MDRD (S/P/Bld) [Vol rate/Area] NOT REPORTED [employer] Phone: Glucose [Mass/Vol] 78 mg/dL 70 - 99 mg/dL [employer] Phone: Interpretation and review of laboratory results Abnormal [employer] Phone: Potassium [Moles/Vol] 3.8 mmol/L 3.7 - 5.3 mmol/L [employer] Phone: Sodium [Moles/Vol] 137 mmol/L 135 - 144 mmol/L [employer] Phone: Urea nitrogen (BldV) [Mass/Vol] 3 mg/dL Low 6 - 20 mg/dL [employer] Phone: Urea nitrogen/Creatinine (Bld) [Mass ratio] NOT REPORTED ERUCES Phone: ERUCES Phone: CBC auto differentialOrdered By: Nicolasa Le on 01-31-2021 Absolute Eos # 0.30 [employer] Work Phone: Absolute Immature Granulocyte 0.15 ERUCES Phone: Absolute Lymph # 2.10 [employer] [facility] Work Phone: Absolute Dupage # 2.25 High [employer] [facility] Work Phone: Basophils (Bld) [#/Vol] 0.00 10*3/uL [employer] Work Phone: Basophils/100 WBC (Bld) 0 % 0 - 2 % ERUCES Phone: Differential Type NOT REPORTED ERUCES Phone: Eosinophils/100 WBC (Bld) 2 % 1 - 4 % [employer] Work Phone: Hematocrit (Bld) [Volume fraction] 35.7 % Low 36.3 - 47.1 % ERUCES Phone: Hemoglobin.gastrointes tinal spec 1 Ql (Stl) 10.8 g/dL Low 11.9 - 15.1 g/dL [employer] Phone: Immature granulocytes/100 WBC (Bld) 1 % High 0 ERUCES Phone: Interpretation and review of laboratory results Abnormal [employer] Phone: Lymphocytes/100 WBC (Bld) 14 % Low 24 - 43 % [employer] Phone: MCH (RBC) [Entitic mass] 29.9 pg 25.2 - 33.5 pg [employer] Phone: MCHC (RBC) [Mass/Vol] 30.3 g/dL 28.4 - 34.8 g/dL [employer] Phone: MCV (RBC) [Entitic vol] 98.9 fL 82.6 - 102.9 fL [employer] Phone: Monocytes/100 WBC (Bld) 15 % High 3 - 12 % [employer]UC[employer] Phone: Morphology Celso (Bld) [Interp] Normal ERUCES Phone: NRBC Automated 0.0 0.0 per 100 WBC [employer] Work Phone: Platelet distribution width (Bld) [Ratio] 13.5 % 11.8 - 14.4 % [employer] Work Phone: Platelet Estimate NOT REPORTED [employer] Work Phone: Platelet mean volume (Bld) [Entitic vol] 11.6 fL 8.1 - 13.5 fL [employer] Work Phone: Platelets (Bld) [#/Vol] 375 10*3/uL [employer] Work Phone: RBC (Bld) [#/Vol] 3.61 10*6/uL Low 3.95 - 5.1 1 m/uL [employer] Work Phone: RBC (Bld) [#/Vol] NOT REPORTED [employer] Work Phone: Segmented neutrophils/100 WBC (Bld) 68 % High 36 - 65 % [employer] Work Phone: Segs Absolute 10.20 High [employer] Work Phone: WBC (Bld) [#/Vol] 15.0 10*3/uL High [employer] Work Phone: WBC (Bld) [#/Vol] NOT REPORTED [employer] Work Phone: [employer] Work Phone: CBC Auto DifferentialOrdered By: David Nash on 01-30-2021 Absolute Eos # 0.21 [employer] [facility] Work Phone: Absolute Immature Granulocyte 0.04 [employer] Work Phone: Absolute Lymph # 1.88 [employer] [facility] Work Phone: Absolute Dupage # 1.43 High [employer] [facility] Work Phone: Basophils (Bld) [#/Vol] 0.04 10*3/uL [employer] Work Phone: Basophils/100 WBC (Bld) 0 % 0 - 2 % ERUCES Phone: Differential Type NOT REPORTED ERUCES Phone: Eosinophils/100 WBC (Bld) 2 % 1 - 4 % [employer] Phone: Hematocrit (Bld) [Volume fraction] 36.2 % Low 36.3 - 47.1 % [employer] Phone: Hemoglobin.gastrointes tinal spec 1 Ql (Stl) 11.7 g/dL Low 11.9 - 15.1 g/dL [employer] Phone: Immature granulocytes/100 WBC (Bld) 0 % 0 ERUCES Phone: Interpretation and review of laboratory results Abnormal [employer]ES Phone: Lymphocytes/100 WBC (Bld) 15 % Low 24 - 43 % [employer] Phone: MCH (RBC) [Entitic mass] 30.3 pg 25.2 - 33.5 pg [employer] Phone: MCHC (RBC) [Mass/Vol] 32.3 g/dL 28.4 - 34.8 g/dL [employer] Phone: MCV (RBC) [Entitic vol] 93.8 fL 82.6 - 102.9 fL [employer] Phone: Monocytes/100 WBC (Bld) 12 % 3 - 12 % [employer] Phone: NRBC Automated 0.0 0.0 per 100 WBC [employer] Phone: Platelet distribution width (Bld) [Ratio] 13.2 % 11.8 - 14.4 % [employer] Phone: Platelet Estimate NOT REPORTED [employer]ES Phone: Platelet mean volume (Bld) [Entitic vol] 11.6 fL 8.1 - 13.5 fL [employer] Work Phone: Platelets (Bld) [#/Vol] 414 10*3/uL [employer] Work Phone: RBC (Bld) [#/Vol] 3.86 10*6/uL Low 3.95 - 5.1 1 m/uL [employer] Work Phone: RBC (Bld) [#/Vol] NOT REPORTED [employer] Work Phone: Segmented neutrophils/100 WBC (Bld) 71 % High 36 - 65 % [employer] Work Phone: Segs Absolute 8.75 High [employer] Work Phone: WBC (Bld) [#/Vol] 12.4 10*3/uL High [employer] Work Phone: WBC (Bld) [#/Vol] NOT REPORTED [employer] Work Phone: [employer] Work Phone: CT ABDOMEN PELVIS W IV [...] anterolisthesis and marked decrease in disc height. [employer] Work Phone: EXAMINATION: CT OF T HE [...] height was noted at the L5-S1 disc. ERUCES Phone: Dario, pn Incoming Radiant Results From [employer] - 01/30/2021 12:20 PM EDT EXAMINATION: CT [...] anterolisthesis and marked decrease in disc height. ERUCES Phone: ERUCES Phone: Comprehensive Metabolic Pane l w/ Reflex to MGOrdered By: David Nash on 01-30-2021 Albumin [Mass/Vol] 3.6 g/dL 3.5 - 5.2 g/dL [employer] Phone: Albumin/Globulin [Mass ratio] 1.0 {ratio} [employer] Phone: ALP (Bld) [Catalytic activity/Vol] 107 U/L High 35 - 104 U/L [employer] Phone: ALT [Catalytic activity/Vol] 33 U/L 5 - 33 U/L [employer] Phone: Anion gap [Moles/Vol] 17 mmol/L 9 - 17 mmol/L [employer] Phone: AST [Catalytic activity/Vol] 26 U/L <32 [employer] Phone: Bilirubin [Mass/Vol] 0.25 mg/dL Low 0.3 - 1 .2 mg/dL [employer] Phone: Calcium [Mass/Vol] 9.5 mg/dL 8.6 - 10. 4 mg/dL [employer] Phone: Chloride [Moles/Vol] 104 mmol/L 98 - 10 7 mmol/L [employer] Phone: CO2 [Moles/Vol] 19 mmol/L Low 20 - 31 mmol/L [employer] Phone: Creatinine [Mass/Vol] 0.47 mg/dL Low 0.50 - 0.90 mg/dL [employer] Phone: Free PSA/Total PSA [Mass fraction] 7.3 g/dL 6.4 - 8.3 g/dL [employer] Phone: GFR >60 >60 mL/min [employer] Phone: GFR Non- >60 >60 mL/min ERUCES Phone: Glucose [Mass/Vol] 79 mg/dL 70 - 99 mg/dL [employer] Phone: Interpretation and review of laboratory results Abnormal [employer] Phone: Potassium [Moles/Vol] 3.8 mmol/L 3.7 - 5.3 mmol/L [employer] Phone: Sodium [Moles/Vol] 140 mmol/L 135 - 144 mmol/L [employer] Phone: Urea nitrogen (BldV) [Mass/Vol] 5 mg/dL Low 6 - 20 mg/dL [employer] Phone: Urea nitrogen/Creatinine (Bld) [Mass ratio] 11 [employer]UCES Phone: HCG Qualitative, SerumOrdere d By: Noreen Mckeon on 01-30-2021 hCG Qual Negative NEGATIVE ERUCES Phone: Comment on above: Specimens with hCG l evels near the threshold of the test (25 mIU/mL) may give a negative or indeterminate result. In such cases, another test should be performed with a new specimen in 48-72 hours. If early is suspected clinically in this setting, correlation with quantitative serum b-hCG level is suggested. [facility] has confirmed the use of plasma for this test. This has not been cleared or approved by the U.S. Food and Drug Administration. The FDA has determined that such clearance is not necessary. ERUCES Phone: Laboratory - Chemistry and C hemistry - challengeOrdered By: David Nash on 01-30-2021 GFR/1.73 sq M.predicted MDRD (S/P/Bld) [Vol rate/Area] [employer]UCES Phone: Comment on above: Average GFR for 30-3 9 years old: 107 mL/min/1.73sq m Chronic Kidney Disease: <60 mL/min/1.73sq m Kidney failure: <15 mL/min/1.73sq m eGFR calculated using average adult body mass. Additional eGFR calculator available at: http://www.[employer]/multiple_crcl_2012.htm Stage 1: Some kidney damage normal GFR Stage 2: Mild kidney damage GFR 60-89 Stage 3: Moderate kidney damage GFR 30-59 Stage 4: Severe kidney damage GFR 15-29 Stage 5: Severe kidney damage GFR <15 ESRD - chronic treatment by dialysis or transplant Lactic AcidOrdered By: Beatriz Nash on 01-30-2021 Lactate [Moles/Vol] 0.6 mmol/L 0.5 - 2. 2 mmol/L ERUCES Phone: ERUCES Phone: LipaseOrdered By: David dalton on 01-30-2021 Lipase [Catalytic activity/Vol] 30 U/L 13 - 60 U/L [employer] Phone: Microscopic UrinalysisOrdere d By: David Nash on 01-30-2021 - [facility] Work Phone: Amorphous, UA NOT REPORTED None [facility] Work Phone: Bacteria, UA TRACE Abnormal None [facility] Work Phone: Casts UA NOT REPORTED /LPF [facility] Work Phone: Crystals, UA NOT REPORTED None /HPF [facility] Work Phone: Epithelial Cells UA 2 TO 5 [facility] Work Phone: Interpretation and review of laboratory results Abnormal [facility] Work Phone: Mucus, UA NOT REPORTED None [facility] Work Phone: Other Observations UA NOT REPORTED NOT REQ. M [facility] Work Phone: RBC, UA 0 TO 2 [facility] Work Phone: Renal Epithelial, UA NOT REPORTED 0 /HPF [facility] Work Phone: Trichomonas, UA NOT REPORTED None [facility] Work Phone: WBC, UA 2 TO 5 [facility] Work Phone: Yeast, UA NOT REPORTED None [facility] Work Phone: [facility] Work Phone: No Panel InformationOrdered By: David Nash on 01-30-2021 [facility] Work Phone: Protime-INROrdered By: Linda Mckeon on 01-30-2021 INR Coag (Bld) [Relative time] 1.1 {INR} [facility] Work Phone: Comment on above: Therapeutic Range: Moderate Anticoagulant Intensity: INR = 2.0-3.0 High Anticoagulant Intensity: INR = 2.5-3.5 PT Coag (PPP) [Time] 11.4 s TIME PLUS [facility] Work Phone: [facility] Work Phone: Urinalysis, reflex to micros copicOrdered By: David Nash on 01-30-2021 Bilirubin Urine SMALL Abnormal NEGATIVE [facility] Work Phone: Color, UA YELLOW YELLOW [facility] Work Phone: Glucose, Ur Negative NEGATIVE [facility] Work Phone: Interpretation and review of laboratory results Abnormal [facility] Work Phone: Ketones Ql (U) 4+ Abnormal NEGATIVE [facility] Work Phone: Leukocyte esterase Test strip Ql (U) Negative NEGATIVE [facility] Work Phone: Nitrite, Urine Negative NEGATIVE [facility] Work Phone: pH, UA 5.5 [facility] Work Phone: Protein, UA Negative NEGATIVE [facility] Work Phone: Specific [place], UA <1.005 Low [facility] [employer] Work Phone: Turbidity UA CLEAR CLEAR [facility] Work Phone: Urinalysis Comments NOT REPORTED [facility] Work Phone: Urine Hgb Negative NEGATIVE [facility] Work Phone: Urobilinogen, Urine Normal Normal [facility] Work Phone: [facility] Work Phone: Basic Metabolic PanelOrdered By: Gamaliel Vickers on 01-08-2021 Anion gap [Moles/Vol] 11 mmol/L 9 - 17 mmol/L [facility] Work Phone: Calcium [Mass/Vol] 9.1 mg/dL 8.6 - 10. 4 mg/dL [facility] Work Phone: Chloride [Moles/Vol] 105 mmol/L 98 - 10 7 mmol/L [employer] Phone: CO2 [Moles/Vol] 23 mmol/L 20 - 31 mmol/L [employer] Phone: Creatinine [Mass/Vol] 0.57 mg/dL 0.50 - 0.90 mg/dL [employer] Phone: GFR >60 >60 mL/min [employer] Phone: GFR Non- >60 >60 mL/min [facility] Phone: GFR/1.73 sq M.predicted MDRD (S/P/Bld) [Vol rate/Area] [employer] Phone: Comment on above: Average GFR for 30-3 9 years old: 107 mL/min/1.73sq m Chronic Kidney Disease: <60 mL/min/1.73sq m Kidney failure: <15 mL/min/1.73sq m eGFR calculated using average adult body mass. Additional eGFR calculator available at: http://www.[employer]/multiple_crcl_2012.htm GFR/1.73 sq M.predicted MDRD (S/P/Bld) [Vol rate/Area] NOT REPORTED [employer] Phone: Glucose [Mass/Vol] 106 mg/dL High 70 - 99 mg/dL [employer] Phone: Interpretation and review of laboratory results Abnormal [employer] Phone: Potassium [Moles/Vol] 3.7 mmol/L 3.7 - 5.3 mmol/L [employer] Phone: Sodium [Moles/Vol] 139 mmol/L 135 - 144 mmol/L [employer] Phone: Urea nitrogen (BldV) [Mass/Vol] 7 mg/dL 6 - 20 mg/dL [employer] Phone: Urea nitrogen/Creatinine (Bld) [Mass ratio] NOT REPORTED [employer] Phone: CBCOrdered By: Gamaliel castillo on 01-08-2021 Hematocrit (Bld) [Volume fraction] 38.0 % 36.3 - 47.1 % [employer] Phone: Hemoglobin.gastrointes tinal spec 1 Ql (Stl) 12.2 g/dL 11.9 - 15.1 g/dL [employer] Phone: Interpretation and review of laboratory results Abnormal [employer] Phone: MCH (RBC) [Entitic mass] 30.4 pg 25.2 - 33.5 pg [employer] Phone: MCHC (RBC) [Mass/Vol] 32.1 g/dL 28.4 - 34.8 g/dL [employer] Phone: MCV (RBC) [Entitic vol] 94.8 fL 82.6 - 102.9 fL [employer] Phone: NRBC Automated 0.0 0.0 per 100 WBC [employer] Phone: Platelet distribution width (Bld) [Ratio] 13.5 % 11.8 - 14.4 % [employer] Phone: Platelet mean volume (Bld) [Entitic vol] 11.4 fL 8.1 - 13.5 fL [employer] Phone: Platelets (Bld) [#/Vol] 304 10*3/uL [employer] Phone: RBC (Bld) [#/Vol] 4.01 10*6/uL 3.95 - 5.1 1 m/uL [employer] Phone: WBC (Bld) [#/Vol] 18.0 10*3/uL High [employer] Phone: FL ESOPHAGRAMOrdered By: Yadi Vickers on 01-08-2021 No evidence of postoperative leak. ERUCES Phone: EXAMINATION: SINGLE CONTRAST ESOPHAGRAM 01/08/2021 HISTORY: [...] KUB/radiographs to assess progression as clinically warranted. ERUCES Phone: Draio, pn Incoming Radiant Results From [employer] - 01/08/2021 12:29 PM EDT EXAMINATION: SINGLE [...] warranted. IMPRESSION: No evidence of postoperative leak. ERUCES Phone: Basic Metabolic PanelOrdered By: Gamaliel Vickers on 01-07-2021 Anion gap [Moles/Vol] 10 mmol/L 9 - 17 mmol/L [employer] Phone: Calcium [Mass/Vol] 8.8 mg/dL 8.6 - 10. 4 mg/dL [employer] Phone: Chloride [Moles/Vol] 105 mmol/L 98 - 10 7 mmol/L [employer] Phone: CO2 [Moles/Vol] 20 mmol/L 20 - 31 mmol/L [employer] Phone: Creatinine [Mass/Vol] 0.68 mg/dL 0.50 - 0.90 mg/dL [employer] Phone: GFR >60 >60 mL/min [employer] Phone: GFR Non- >60 >60 mL/min [facility] Phone: GFR/1.73 sq M.predicted MDRD (S/P/Bld) [Vol rate/Area] [employer] Phone: Comment on above: Average GFR for 30-3 9 years old: 107 mL/min/1.73sq m Chronic Kidney Disease: <60 mL/min/1.73sq m Kidney failure: <15 mL/min/1.73sq m eGFR calculated using average adult body mass. Additional eGFR calculator available at: http://www.[employer]/multiple_crcl_2012.htm GFR/1.73 sq M.predicted MDRD (S/P/Bld) [Vol rate/Area] NOT REPORTED [employer] Phone: Glucose [Mass/Vol] 215 mg/dL High 70 - 99 mg/dL [employer] Phone: Interpretation and review of laboratory results Abnormal [employer] Phone: Potassium [Moles/Vol] 4.2 mmol/L 3.7 - 5.3 mmol/L [employer] Phone: Sodium [Moles/Vol] 135 mmol/L 135 - 144 mmol/L [employer] Phone: Urea nitrogen (BldV) [Mass/Vol] 14 mg/dL 6 - 20 mg/dL [employer] Phone: Urea nitrogen/Creatinine (Bld) [Mass ratio] NOT REPORTED [employer] Phone: CBC without DiffOrdered By: Gamaliel Vickers on 01-07-2021 Hematocrit (Bld) [Volume fraction] 38.3 % 36.3 - 47.1 % [employer] Phone: Hemoglobin.gastrointes tinal spec 1 Ql (Stl) 12.5 g/dL 11.9 - 15.1 g/dL [employer] Phone: Interpretation and review of laboratory results Abnormal [employer] Phone: MCH (RBC) [Entitic mass] 30.9 pg 25.2 - 33.5 pg [employer] Phone: MCHC (RBC) [Mass/Vol] 32.6 g/dL 28.4 - 34.8 g/dL [employer] Phone: MCV (RBC) [Entitic vol] 94.8 fL 82.6 - 102.9 fL [employer] Phone: NRBC Automated 0.0 0.0 per 100 WBC [facility] Phone: Platelet distribution width (Bld) [Ratio] 13.4 % 11.8 - 14.4 % [employer] Phone: Platelet mean volume (Bld) [Entitic vol] 11.2 fL 8.1 - 13.5 fL [employer] Phone: Platelets (Bld) [#/Vol] 373 10*3/uL [employer] Phone: RBC (Bld) [#/Vol] 4.04 10*6/uL 3.95 - 5.1 1 m/uL [employer] Phone: WBC (Bld) [#/Vol] 24.9 10*3/uL High [employer] Phone: POCT urine pregnancyOrdered By: Gamaliel Vickers on 01-07-2021 Beta HCG ( test) Ql (U) Negative NEGATIVE [employer] Phone: Comment on above: Specimens with hCG l evels near the threshold of the test (25 mIU/mL) may give a negative or indeterminate result. In such cases, another test should be performed with a new specimen in 48-72 hours. If early is suspected clinically in this setting, correlation with quantitative serum b-hCG level is suggested. [id number] 01-04-2021 SARS-CoV-2 (COVID-19) RNA JOSÉ MIGUEL+probe Ql (Unsp spec) Normal [facility] Comment on above: Performed By: #### C OVID #### [facility] [address] [place] [address] Technical Producer: Wei Reyna MD [address] [id number] Technical Producer: Harpal Adair MD SARS-CoV-2 (COVID-19) RNA JOSÉ MIGUEL+probe Ql (Unsp spec) Not detected Normal NOTDET [facility] Comment on above: Result Comment: The specimen is NEGATIVE for SARS-CoV-2, the novel coronavirus associated with COVID-19. A negative result does not rule out COVID-19. [employer]ide SARS-CoV-2 for use on the [employer] is a real-time RT-PCR test intended [...] this assay. Fact sheet for Healthcare Providers: https://www.fda.gov/media/976971/download Fact sheet for Patients: https://www.fda.gov/media/469147/download METHODOLOGY: RT-PCR Performed By: #### C OVID #### [facility] [address] [place] [address] Technical Producer: Wei Reyna MD [address] [id number] Technical Producer: Harpal Adair MD [id number] 01-03-2021 SARS-CoV-2 (COVID-19) RNA JOSÉ MIGUEL+probe Ql (Unsp spec) .NASOPHARYNGEAL SWAB Normal [facility] Comment on above: Performed By: #### C OVID #### [facility] [address] [place], [place] [id number] Technical Producer: Wei Reyna MD [facility] [address] [place], [place] [id number] Technical Producer: Harpal Adair MD Nicotine, BloodOrdered By: Jose Vickers on 12-26-2020 [id number] <2 ng/mL [facility] [employer] Work Phone: Cotinine <2 ng/mL [facility] Work Phone: Nicotine <2 ng/mL [facility] [employer] Phone: Comment on above: (NOTE) Consistent with [...] developed and its performance characteristics determined by [employer]. It has not been cleared or approved by the [place] Food and Drug Administration. This test was performed in a CLIA certified laboratory and is intended for clinical purposes. Performed By: [employer] [address] [place] [address] Rn Internship: Brissa Bonilla MD EKG 12 LeadOrdered By: Enmanuel Vickers on 12-25-2020 Atrial Rate 70 BPM [employer] Work Phone: P [place] 20 degrees [facility] Work Phone: P-R Interval 176 ms [facility]UCES Phone: Q-T Interval 414 ms [facility] Phone: QRS Duration 88 ms [employer] Work Phone: QTc Calculation (Bazett) 447 ms [facility] Phone: R [place] 7 degrees [employer] Work Phone: T [place] 8 degrees [facility] Phone: Ventricular Rate 70 BPM [employer] Work Phone: Normal sinus rhythm Normal ECG No previous ECGs available [facility] Phone: Dario, Mhpn Incoming E kg Results From [employer] - 12/25/2020 12:47 PM EDT Normal sinus rhythm Normal ECG No previous ECGs available [facility] Phone: APTTOrdered By: Gamaliel horvath on 12-24-2020 aPTT Coag (Bld) [Time] 23.[address] [facility]: Comment on above: IV Heparin Therapy Range: 48.6-77.8 Basic Metabolic PanelOrdered By: Gamaliel Vickers on 12-24-2020 Anion gap [Moles/Vol] 10 mmol/L 9 - 17 mmol/L [facility] Phone: Calcium [Mass/Vol] 9.4 mg/dL 8.6 - 10. 4 mg/dL [facility] Phone: Chloride [Moles/Vol] 106 mmol/L 98 - 10 7 mmol/L [employer] Phone: CO2 [Moles/Vol] 23 mmol/L 20 - 31 mmol/L [facility]: Creatinine [Mass/Vol] 0.56 mg/dL 0.50 - 0.90 mg/dL [facility] Phone: GFR >60 >60 mL/min [employer] Phone: GFR Non- >60 >60 mL/min [facility] Phone: GFR/1.73 sq M.predicted MDRD (S/P/Bld) [Vol rate/Area] [facility] Phone: Comment on above: Average GFR for 30-3 9 years old: 107 mL/min/1.73sq m Chronic Kidney Disease: <60 mL/min/1.73sq m Kidney failure: <15 mL/min/1.73sq m eGFR calculated using average adult body mass. Additional eGFR calculator available at: http://www.[employer]/multiple_crcl_2012.htm GFR/1.73 sq M.predicted MDRD (S/P/Bld) [Vol rate/Area] NOT REPORTED [facility] Phone: Glucose [Mass/Vol] 86 mg/dL 70 - 99 mg/dL [facility] Phone: Potassium [Moles/Vol] 3.8 mmol/L 3.7 - 5.3 mmol/L [employer] Phone: Sodium [Moles/Vol] 139 mmol/L 135 - 144 mmol/L [employer] Phone: Urea nitrogen (BldV) [Mass/Vol] 12 mg/dL 6 - 20 mg/dL [facility] Phone: Urea nitrogen/Creatinine (Bld) [Mass ratio] NOT REPORTED [facility] Phone: CBCOrdered By: Gamaliel castillo on 12-24-2020 Hematocrit (Bld) [Volume fraction] 41.2 % 36.3 - 47.1 % [facility] Phone: Hemoglobin.gastrointes tinal spec 1 Ql (Stl) 13.4 g/dL 11.9 - 15.1 g/dL [facility] Phone: MCH (RBC) [Entitic mass] 30.5 pg 25.2 - 33.5 pg [facility] Phone: MCHC (RBC) [Mass/Vol] 32.5 g/dL 28.4 - 34.8 g/dL [facility] Phone: MCV (RBC) [Entitic vol] 93.6 fL 82.6 - 102.9 fL [facility] Phone: NRBC Automated 0.0 0.0 per 100 WBC [facility] Phone: Platelet distribution width (Bld) [Ratio] 13.2 % 11.8 - 14.4 % [facility] Phone: Platelet mean volume (Bld) [Entitic vol] 10.7 fL 8.1 - 13.5 fL [employer] Phone: Platelets (Bld) [#/Vol] 391 10*3/uL [facility] Phone: RBC (Bld) [#/Vol] 4.40 10*6/uL 3.95 - 5.1 1 m/uL [facility] Phone: WBC (Bld) [#/Vol] 8.5 10*3/uL [facility] Phone: Protime-INROrdered By: Enmanuel Vickers on 12-24-2020 INR Coag (Bld) [Relative time] 0.9 {INR} [facility] Phone: Comment on above: Therapeutic Range: Moderate Anticoagulant Intensity: INR = 2.0-3.0 High Anticoagulant Intensity: INR = 2.5-3.5 PT Coag (PPP) [Time] 10 s [employer] Phone: XR CHEST (2 VW)on 12-24-2020 No acute cardiopulmonary findings [facility] Phone: EXAMINATION: TWO XRA Y VIEWS OF THE CHEST 12/24/2020 11:24 am COMPARISON: None. HISTORY: ORDERING SYSTEM PROVIDED HISTORY: preop gastric bypass [employer] TECHNOLOGIST PROVIDED HISTORY: preop gastric bypass Tian En Y Reason for Exam: no chest complaints FINDINGS: Normal cardiopericardial silhouette There are no significant mediastinal, pleural, parenchymal or osseous findings [facility] Phone: Dario, Mhpn Incoming Radiant Results From [employer] - 12/24/2020 11:30 AM EDT EXAMINATION: TWO XRAY VIEWS OF THE CHEST 12/24/2020 11:24 am COMPARISON: None. HISTORY: ORDERING SYSTEM PROVIDED HISTORY: preop gastric bypass Tian [employer] TECHNOLOGIST PROVIDED HISTORY: preop gastric bypass Tian En Y Reason for Exam: no chest complaints FINDINGS: Normal cardiopericardial silhouette There are no significant mediastinal, pleural, parenchymal or osseous findings IMPRESSION: No acute cardiopulmonary findings [facility] Phone: XR CHEST (2 VW)Ordered By: Jose Vickers on 12-24-2020 No acute cardiopulmonary findings [facility] Phone: EXAMINATION: TWO XRA Y VIEWS OF THE CHEST 12/24/2020 11:24 am COMPARISON: None. HISTORY: ORDERING SYSTEM PROVIDED HISTORY: preop gastric bypass Tian [employer] Y TECHNOLOGIST PROVIDED HISTORY: preop gastric bypass Tian En Y Reason for Exam: no chest complaints FINDINGS: Normal cardiopericardial silhouette There are no significant mediastinal, pleural, parenchymal or osseous findings [facility] Phone: Dario, Mhpn Incoming Radiant Results From [employer] - 12/24/2020 11:30 AM EDT EXAMINATION: TWO XRAY VIEWS OF THE CHEST 12/24/2020 11:24 am COMPARISON: None. HISTORY: ORDERING SYSTEM PROVIDED HISTORY: preop gastric bypass Tian En Y TECHNOLOGIST PROVIDED HISTORY: preop gastric bypass Tian En Y Reason for Exam: no chest complaints FINDINGS: Normal cardiopericardial silhouette There are no significant mediastinal, pleural, parenchymal or osseous findings IMPRESSION: No acute cardiopulmonary findings [facility] Phone: FL UGI W AIR CONTRASTon 10-15 Intermittent significant spontaneous GE reflux. Otherwise unremarkable double-contrast upper GI and esophagram. [facility] Phone: EXAMINATION: DOUBLE CONTRAST UPPER GI SERIES [...] The duodenal bulb and sweep are normal. [facility] Phone: Dario, Mhpn Incoming Radiant Results From [employer] - 11/01/2020 5:21 PM EST EXAMINATION: DOUBLE [...] Otherwise unremarkable double-contrast upper GI and esophagram. [facility] Phone: COVID-19on 09-25-2020 [facility]CoV[facility]2 [facility] [place] SARS-CoV-2 Not Detected Not Detected [place], [place] Comment on above: The specimen is NEGATIVE for SARS-CoV-2, the novel coronavirus associated with COVID-19. A negative result does not rule out COVID-19. Heide SARS-CoV-2 for use on the [employer] is a real-time RT-PCR test intended [...] this assay. Fact sheet for Healthcare Providers: https://www.fda.gov/media/840674/download Fact sheet for Patients: https://www.fda.gov/media/198952/download METHODOLOGY: RT-PCR SARS-CoV-2, [place], [place] Source .NASOPHARYNGEAL SWAB [place], [place] Vital Signs Date Time Vital Sign Value Performing Clinician Facility 01-27-2025 10:12-0400 Diastolic blood pressure 91 mm[Hg] [facility] 01-27-2025 10:12-0400 Heart rate 86 /min [facility] 01-27-2025 10:12-0400 Mean blood pressure 106 mm[Hg] [facility] 01-27-2025 10:12-0400 Respiratory rate 14 /min [facility] 01-27-2025 10:12-0400 Systolic blood pressure 136 mm[Hg] [facility] 01-24-2025 09:59-0400 Heart rate 76 /min [facility] 01-24-2025 09:59-0400 SaO2% (BldA) [Mass fraction] 100 % [facility] 01-24-2025 09:59-0400 Diastolic blood pressure 88 mm[Hg] [facility] 01-24-2025 09:59-0400 Mean blood pressure 104 mm[Hg] [facility] 01-24-2025 09:59-0400 Systolic blood pressure 137 mm[Hg] [facility] 01-24-2025 09:54-0400 Diastolic blood pressure 80 mm[Hg] Eckert [facility] 01-24-2025 09:54-0400 Heart rate 79 /min [facility] 01-24-2025 09:54-0400 Respiratory rate 14 /min [facility] 01-24-2025 09:54-0400 SaO2% (BldA) [Mass fraction] 100 % [facility] 01-24-2025 09:54-0400 Systolic blood pressure 141 mm[Hg] [facility] 01-24-2025 08:35-0400 Heart rate 79 /min Eck[facility] 01-24-2025 08:35-0400 SaO2% (BldA) [Mass fraction] 99 % [facility] 01-24-2025 08:34-0400 Body temperature 97.88 [degF] [facility] 01-24-2025 08:34-0400 Diastolic blood pressure 91 mm[Hg] [facility] 01-24-2025 08:34-0400 Mean blood pressure 105 mm[Hg] [facility] 01-24-2025 08:34-0400 Systolic blood pressure 134 mm[Hg] [facility] 01-24-2025 08:32-0400 Respiratory rate 16 /min [facility] 01-13-2025 08:15-0400 Diastolic blood pressure 95 mm[Hg] [facility] 01-13-2025 08:15-0400 Heart rate 79 /min [facility] 01-13-2025 08:15-0400 Mean blood pressure 108 mm[Hg] [facility] 01-13-2025 08:15-0400 Respiratory rate 16 /min [facility] 01-13-2025 08:15-0400 Systolic blood pressure 133 mm[Hg] [facility] 12-16-2024 10:31-0400 Body height 170.18 cm [facility] 12-16-2024 10:31-0400 Body weight 83.91 kg [facility] 11-28-2024 10:23-0400 Heart rate 64 /min [facility] 11-28-2024 10:23-0400 SaO2% (BldA) [Mass fraction] 100 % [facility] 11-28-2024 10:23-0400 Diastolic blood pressure 86 mm[Hg] [facility] 11-28-2024 10:23-0400 Mean blood pressure 101 mm[Hg] [facility] 11-28-2024 10:23-0400 Systolic blood pressure 133 mm[Hg] [facility] 11-28-2024 10:23-0400 Respiratory rate 16 /min [facility] 11-28-2024 10:19-0400 Diastolic blood pressure 97 mm[Hg] [facility] 11-28-2024 10:19-0400 Heart rate 81 /min [facility] 11-28-2024 10:19-0400 SaO2% (BldA) [Mass fraction] 97 % [facility] 11-28-2024 10:19-0400 Systolic blood pressure 137 mm[Hg] [facility] 11-28-2024 09:10-0400 Heart rate 77 /min [facility] 11-28-2024 09:10-0400 SaO2% (BldA) [Mass fraction] 99 % [facility] 11-28-2024 09:09-0400 Diastolic blood pressure 97 mm[Hg] Eck[facility] 11-28-2024 09:09-0400 Mean blood pressure 115 mm[Hg] [facility] 11-28-2024 09:09-0400 Systolic blood pressure 149 mm[Hg] [facility] 11-28-2024 09:09-0400 Body temperature 98.06 [degF] [facility] 11-28-2024 09:06-0400 Respiratory rate 20 /min [facility] 11-15-2024 13:35-0500 Diastolic blood pressure 93 mm[Hg] [facility] 11-15-2024 13:35-0500 Heart rate 90 /min [facility] 11-15-2024 13:35-0500 Mean blood pressure 106 mm[Hg] [facility] 11-15-2024 13:35-0500 Respiratory rate 14 /min [facility] 11-15-2024 13:35-0500 Systolic blood pressure 131 mm[Hg] [facility] 10-18-2024 08:08-0500 Body temperature 98.24 [degF] [facility] 10-18-2024 08:08-0500 Diastolic blood pressure 88 mm[Hg] [facility] 10-18-2024 08:08-0500 Heart rate 86 /min [facility] 10-18-2024 08:08-0500 Respiratory rate 16 /min [facility] 10-18-2024 08:08-0500 SaO2% (BldA) [Mass fraction] 100 % [facility] 10-18-2024 08:08-0500 Systolic blood pressure 123 mm[Hg] [facility] 09-21-2024 11:17-0500 Body mass index (BMI) [Ratio] 30.12 kg/m2 Corby Larsen [email or web address] Work Phone: [facility] 09-21-2024 11:17-0500 Body weight 84.64 kg Corby Larsen DO Work Phone: [facility] 09-21-2024 11:17-0500 Diastolic blood pressure 84 mm[Hg] Corby Larsen DO Work Phone: [facility] 09-21-2024 11:17-0500 Heart rate 80 /min Corby Larsen DO Work Phone: [facility] 09-21-2024 11:17-0500 SaO2% (BldA) [Mass fraction] 98 % Corby Larsen DO Work Phone: [facility] 09-21-2024 11:17-0500 Systolic blood pressure 118 mm[Hg] Corby Larsen DO Work Phone: [facility] 09-15-2024 16:36-0500 Diastolic blood pressure 82 mm[Hg] [facility] 09-15-2024 16:36-0500 Heart rate 55 /min [facility] 09-15-2024 16:36-0500 Respiratory rate 23 /min [facility] 09-15-2024 16:36-0500 SaO2% (BldA) [Mass fraction] 100 % [facility] 09-15-2024 16:36-0500 Systolic blood pressure 147 mm[Hg] [facility] 09-15-2024 13:29-0500 Body height 170.18 cm [facility] 09-15-2024 13:29-0500 Body temperature 98 [degF] [facility] 09-15-2024 13:29-0500 Body weight 89 kg [facility] 09-13-2024 09:40-0500 Body height 170.[address] 09-13-2024 09:40-0500 Body mass index (BMI) [Ratio] 29.44 kg/m2 [address] 09-13-2024 09:40-0500 Body weight 85.[address] 09-13-2024 09:40-0500 Diastolic blood pressure 76 mm[Hg] [address] 09-13-2024 09:40-0500 Systolic blood pressure 118 mm[Hg] [address] 08-08-2024 15:29-0500 Diastolic blood pressure 70 mm[Hg] Aleah Howard MD Work Phone: [facility] 08-08-2024 15:29-0500 Systolic blood pressure 110 mm[Hg] Aleah Howard MD Work Phone: [facility] 08-08-2024 15:28-0500 Body height 170.2 cm Aleah Howard MD Work Phone: [facility] 08-08-2024 15:28-0500 Body mass index (BMI) [Ratio] 29.44 kg/m2 Aleah Howard MD Work Phone: [facility] 08-08-2024 15:28-0500 Body weight 85.28 kg Aleah Howard MD Work Phone: [facility] 08-08-2024 15:28-0500 Heart rate 75 /min Aleah Howard MD Work Phone: [facility] 07-25-2024 15:08-0500 Body mass index (BMI) [Ratio] 28.94 kg/m2 Tevin Carson DO Work Phone: [facility] 07-25-2024 15:08-0500 Body weight 83.8 kg Tevin Carson DO Work Phone: [facility] 07-25-2024 15:08-0500 Diastolic blood pressure 72 mm[Hg] Tevin Carson DO Work Phone: [facility] 07-25-2024 15:08-0500 Heart rate 67 /min Tevin Carson DO Work Phone: [facility] 07-25-2024 15:08-0500 SaO2% (BldA) [Mass fraction] 100 % Tevin Carson DO Work Phone: [facility] 07-25-2024 15:08-0500 Systolic blood pressure 122 mm[Hg] Tevin Carson DO Work Phone: [facility] 07-04-2024 11:01-0400 Body height 170.2 cm Fatuma Tyler APRN.CNP Work Phone: [facility] 07-04-2024 11:01-0400 Body mass index (BMI) [Ratio] 28.98 kg/m2 Fatuma Fisherseema STEELE.TRAFFIC CHIEF Work Phone: [facility] 07-04-2024 11:01-0400 Body weight 83.92 kg Bellaf[place]on FisherTylerseema STEELE.TRAFFIC CHIEF Work Phone: [facility] 07-01-2024 11:01-0400 Body height 170.2 cm Tevin Carson DO Work Phone: [facility] 07-01-2024 11:01-0400 Body mass index (BMI) [Ratio] 29.8 kg/m2 Tevin Carson DO Work Phone: [facility] 07-01-2024 11:01-0400 Body weight 86.3 kg Tevin Carson DO Work Phone: [facility] 07-01-2024 11:01-0400 Diastolic blood pressure 59 mm[Hg] Tevin Carson DO Work Phone: [facility] 07-01-2024 11:01-0400 Heart rate 72 /min Tevin Carson DO Work Phone: [facility] 07-01-2024 11:01-0400 SaO2% (BldA) [Mass fraction] 99 % Tevin Carson DO Work Phone: [facility] 07-01-2024 11:01-0400 Systolic blood pressure 101 mm[Hg] Tevin Carson DO Work Phone: [facility] 03-08-2024 15:02-0400 Diastolic blood pressure 78 mm[Hg] Alexis Sh[facility] 03-08-2024 15:02-0400 Heart rate 65 /min Alexis Shukla [facility] 03-08-2024 15:02-0400 Mean blood pressure 89 mm[Hg] Alexis Shukla [facility] 03-08-2024 15:02-0400 SaO2% (BldA) [Mass fraction] 100 % Alexis Lopeze [facility] 03-08-2024 15:02-0400 Systolic blood pressure 110 mm[Hg] Alexis Vazquez [facility] 03-08-2024 14:00-0400 SaO2% (BldA) [Mass fraction] 99 % Alexis Vazquez [facility] 03-08-2024 13:37-0400 Body temperature 98.42 [degF] Alexis Vazquez [facility] 03-08-2024 13:37-0400 Diastolic blood pressure 82 mm[Hg] Alexis Lopeze [facility] 03-08-2024 13:37-0400 Heart rate 70 /min Alexis Lopeze [facility] 03-08-2024 13:37-0400 Respiratory rate 18 /min Alexis Vazquez [facility] 03-08-2024 13:37-0400 SaO2% (BldA) [Mass fraction] 100 % Alexis Lopeze [facility] 03-08-2024 13:37-0400 Systolic blood pressure 126 mm[Hg] Alexis Vaqzuez [facility] 03-08-2024 13:14-0400 Body temperature 98.24 [degF] Alexis Vazquez [facility] 03-08-2024 13:14-0400 Diastolic blood pressure 87 mm[Hg] Alexis Vazquez [facility] 03-08-2024 13:14-0400 Heart rate 67 /min Alexis Vazquez [facility] 03-08-2024 13:14-0400 Respiratory rate 16 /min Alexis Shukla [facility] 03-08-2024 13:14-0400 Systolic blood pressure 135 mm[Hg] Alexis Shukla [facility] 03-08-2024 08:06-0400 Body height 170.2 cm Elia Baires DO Work Phone: [facility] 03-08-2024 08:06-0400 Body mass index (BMI) [Ratio] 30.9 kg/m2 Elia Baires DO Work Phone: [facility] 03-08-2024 08:060400 Body weight 89.5 kg Elia Baires DO Work Phone: [facility] 03-08-2024 08:06-0400 Diastolic blood pressure 72 mm[Hg] Elia Baires DO Work Phone: [facility] 03-08-2024 08:06-0400 Heart rate 82 /min Elia Baires DO Work Phone: [facility] 03-08-2024 08:06-0400 SaO2% (BldA) [Mass fraction] 100 % Elia Baires DO Work Phone: [facility] 03-08-2024 08:06-0400 Systolic blood pressure 114 mm[Hg] Elia Baires DO Work Phone: [facility] 01-04-2024 09:28-0400 Body height 170.2 cm Elia Baires DO Work Phone: [facility] 01-04-2024 09:28-0400 Body mass index (BMI) [Ratio] 31.96 kg/m2 Elia Baires DO Work Phone: [facility] 01-04-2024 09:28-0400 Body weight 92.55 kg Elia Baires DO Work Phone: [facility] 01-04-2024 09:28-0400 Diastolic blood pressure 86 mm[Hg] Elia Baires DO Work Phone: [facility] 01-04-2024 09:28-0400 Heart rate 92 /min Eliakeshav Baires DO Work Phone: [facility] 01-04-2024 09:28-0400 SaO2% (BldA) [Mass fraction] 97 % Eliakeshav Baires DO Work Phone: [facility] 01-04-2024 09:28-0400 Systolic blood pressure 123 mm[Hg] Eliakeshav Baires DO Work Phone: [facility] 12-31-2023 11:17-0400 Heart rate 76 /min DO Jennie Durand Work Phone: [facility] 12-31-2023 11:14-0400 Body temperature 98.2 [degF] DO Jennie Durand Work Phone: [facility] 12-31-2023 11:14-0400 Diastolic blood pressure 73 mm[Hg] DO Jennie Durand Work Phone: [facility] 12-31-2023 11:14-0400 Respiratory rate 18 /min DO Jennie Durand Work Phone: [facility] 12-31-2023 11:14-0400 SaO2% (BldA) [Mass fraction] 97 % DO Jennie Durand Work Phone: [facility] 12-31-2023 11:14-0400 Systolic blood pressure 138 mm[Hg] DO Jennie Durand Work Phone: [facility] 12-31-2023 11:13-0400 Body height 170.18 cm DO Jennie Durand Work Phone: [facility] 12-31-2023 11:13-0400 Body weight 89.35 kg DO Jennie Durand Work Phone: [facility] 12-24-2023 11:58-0400 Body height 170.18 cm DO Jennie Durand Work Phone: [facility] 12-24-2023 11:58-0400 Body temperature 97.8 [degF] DO Jennie Durand Work Phone: [facility] 12-24-2023 11:58-0400 Body weight 89 kg DO Jennie Durand Work Phone: [facility] 12-24-2023 11:58-0400 Diastolic blood pressure 91 mm[Hg] DO Jennie Durand Work Phone: [facility] 12-24-2023 11:58-0400 Heart rate 85 /min DO Jennie Durand Work Phone: [facility] 12-24-2023 11:58-0400 Respiratory rate 15 /min DO Jennie Durand Work Phone: [facility] 12-24-2023 11:58-0400 SaO2% (BldA) [Mass fraction] 100 % DO Jennie Durand Work Phone: [facility] 12-24-2023 11:58-0400 Systolic blood pressure 137 mm[Hg] DO Jennie Durand Work Phone: [facility] 12-10-2023 12:35-0400 Heart rate 70 /min DO Jennie Durand Work Phone: [facility] 12-10-2023 12:35-0400 Respiratory rate 16 /min DO Jennie Durand Work Phone: [facility] 12-10-2023 12:35-0400 SaO2% (BldA) [Mass fraction] 98 % DO Jennie Durand Work Phone: [facility] 12-10-2023 12:08-0400 Body height 170.18 cm DO Jennie Durand Work Phone: [facility] 12-10-2023 12:08-0400 Body temperature 98 [degF] DO Jennie Durand Work Phone: [facility] 12-10-2023 12:08-0400 Body weight 89.8 kg DO Jennie Durand Work Phone: [facility] 12-10-2023 12:08-0400 Diastolic blood pressure 76 mm[Hg] DO Jennie Durand Work Phone: [facility] 12-10-2023 12:08-0400 Systolic blood pressure 123 mm[Hg] DO Jennie Durand Work Phone: [facility] 09-18-2023 08:49-0500 Diastolic blood pressure 72 mm[Hg] Gamaliel Vickers DO Work Phone: [employer] 09-18-2023 08:49-0500 Heart rate 58 /min Gamaliel Vickers DO Work Phone: [employer] 09-18-2023 08:49-0500 Respiratory rate 18 /min Gamaliel Vickers DO Work Phone: [employer] 09-18-2023 08:49-0500 SaO2% (BldA) [Mass fraction] 100 % Gamaliel Vickers DO Work Phone: [employer] 09-18-2023 08:49-0500 Systolic blood pressure 111 mm[Hg] Gamaliel Vickers DO Work Phone: [employer] 09-18-2023 08:24-0500 Body temperature 97.11 [degF] Gamaliel Vickers DO Work Phone: [employer] 09-18-2023 07:23-0500 Body height 170.2 cm Gamaliel Vickers DO Work Phone: [employer] 09-18-2023 07:23-0500 Body mass index (BMI) [Ratio] 31.79 kg/m2 Gamaliel Vickers DO Work Phone: [employer] 09-18-2023 07:23-0500 Body weight 92.08 kg Gamaliel Vickers DO Work Phone: [employer] 08-15-2023 13:37-0500 Diastolic blood pressure 69 mm[Hg] DO Jennie Durand Work Phone: [facility] 08-15-2023 13:37-0500 Heart rate 70 /min DO Jennie Durand Work Phone: [facility] 08-15-2023 13:37-0500 Respiratory rate 18 /min DO Jennie Durand Work Phone: [facility] 08-15-2023 13:37-0500 SaO2% (BldA) [Mass fraction] 99 % DO Jennie Durand Work Phone: [facility] 08-15-2023 13:37-0500 Systolic blood pressure 107 mm[Hg] DO Jennie Durand Work Phone: [facility] 08-15-2023 11:29-0500 Body height 170.18 cm DO Jennie Durand Work Phone: [facility] 08-15-2023 11:29-0500 Body temperature 98.2 [degF] DO Jennie Durand Work Phone: [facility] 08-15-2023 11:29-0500 Body weight 86.18 kg DO Jennie Durand Work Phone: [facility] 08-14-2023 16:43-0500 Body height 170.18 cm DO Jennie Durand Work Phone: [facility] 08-14-2023 16:43-0500 Body temperature 98.2 [degF] DO Jennie Durand Work Phone: [facility] 08-14-2023 16:43-0500 Body weight 88.6 kg DO Jennie Durand Work Phone: [facility] 08-14-2023 16:43-0500 Diastolic blood pressure 66 mm[Hg] DO Jennie Durand Work Phone: [facility] 08-14-2023 16:43-0500 Heart rate 80 /min DO Jennie Durand Work Phone: [facility] 08-14-2023 16:43-0500 Respiratory rate 18 /min DO Jennie Durand Work Phone: [facility] 08-14-2023 16:43-0500 SaO2% (BldA) [Mass fraction] 98 % DO Jennie Durand Work Phone: [facility] 08-14-2023 16:43-0500 Systolic blood pressure 118 mm[Hg] DO Jennie Durand Work Phone: [facility] 08-13-2023 11:15-0500 Body height 170.18 cm Imad Asaad Other [employer] Other 08-13-2023 11:15-0500 Body mass index (BMI) [Ratio] 30.54 kg/m2 Imad Asaad Other [employer] Other 08-13-2023 11:15-0500 Body weight 88.45 kg Imad Asaad Other [employer] Other 08-13-2023 11:15-0500 Diastolic blood pressure 84 mm[Hg] Imad Asaad Other [employer] Other 08-13-2023 11:15-0500 Systolic blood pressure 133 mm[Hg] Imad Asaad Other [employer] [facility] Other 07-08-2023 12:05-0400 Body height 170.18 cm Ania Javed Other [employer] [facility] Other 07-08-2023 12:05-0400 Body mass index (BMI) [Ratio] 30.22 kg/m2 Ania Javed Other [facility] Other 10-25-2023 12:05-0400 Body temperature 99 [degF] Ania Javed Other [facility] [facility] Other 07-08-2023 12:05-0400 Body weight 87.54 kg Ania Javed Other [facility] [facility] Other 07-08-2023 12:05-0400 Diastolic blood pressure 64 mm[Hg] Ania Tegan Other [facility] [facility] Other 07-08-2023 12:05-0400 Respiratory rate 19 /min Ania Shipleymond Other [facility] Other 07-08-2023 12:05-0400 SaO2% (BldA) [Mass fraction] 98 % Ania Javed Other [facility] Other 07-08-2023 12:05-0400 Systolic blood pressure 110 mm[Hg] Ania Javed Other [facility] [facility] Other 07-03-2023 11:05-0400 Diastolic blood pressure 80 mm[Hg] DO Jennie Durand Work Phone: [facility] 07-03-2023 11:05-0400 Heart rate 78 /min DO Jennie Durand Work Phone: [facility] 07-03-2023 11:05-0400 Respiratory rate 16 /min DO Jennie Durand Work Phone: [facility] 07-03-2023 11:05-0400 SaO2% (BldA) [Mass fraction] 99 % DO Jennie Durand Work Phone: [facility] 07-03-2023 11:05-0400 Systolic blood pressure 119 mm[Hg] DO Jennie Durand Work Phone: [facility] 07-03-2023 10:10-0400 Body height 170.18 cm DO Jennie Hameede Work Phone: [facility] 07-03-2023 10:10-0400 Body temperature 98.7 [degF] DO Jennie Hameede Work Phone: [facility] 07-03-2023 10:10-0400 Body weight 86.9 kg DO Jennie Hameede Work Phone: [facility] 07-02-2023 14:06-0400 Body temperature 98.06 [degF] Bakari Henrik [facility] 07-02-2023 14:06-0400 Diastolic blood pressure 78 mm[Hg] Bakari Henrik [facility] 07-02-2023 14:06-0400 Heart rate 91 /min Bakari Henrik [facility] 07-02-2023 14:06-0400 Respiratory rate 18 /min Bakari Henrik [facility] 07-02-2023 14:06-0400 SaO2% (BldA) [Mass fraction] 100 % Bakari Henrik [facility] 07-02-2023 14:06-0400 Systolic blood pressure 121 mm[Hg] Bakari Henrik [facility] 01-15-2023 13:30-0400 Diastolic blood pressure 85 mm[Hg] Bakari Henrik [facility] 01-15-2023 13:30-0400 Heart rate 71 /min Bakari Henrik [facility] 01-15-2023 13:30-0400 Mean blood pressure 98 mm[Hg] Bakari Henrik [facility] 01-15-2023 13:30-0400 Respiratory rate 18 /min Bakari Henrik [facility] 01-15-2023 13:30-0400 SaO2% (BldA) [Mass fraction] 100 % Bakari Henrik [facility] 01-15-2023 13:30-0400 Systolic blood pressure 125 mm[Hg] Bakari Henrik [facility] 01-15-2023 12:30-0400 Diastolic blood pressure 99 mm[Hg] Bakari Henrik [facility] 01-15-2023 12:30-0400 Heart rate 78 /min Bakari Henrik [facility] 01-15-2023 12:30-0400 Mean blood pressure 107 mm[Hg] Bakari Henrik [facility] 01-15-2023 12:30-0400 Respiratory rate 18 /min Bakari Henrik [facility] 01-15-2023 12:30-0400 SaO2% (BldA) [Mass fraction] 100 % Bakari Henrik [facility] 01-15-2023 12:30-0400 Systolic blood pressure 122 mm[Hg] Bakari Henrik [facility] 01-15-2023 10:50-0400 Body temperature 98.42 [degF] Bakari Henrik [facility] 01-15-2023 10:50-0400 Diastolic blood pressure 74 mm[Hg] Bakari Henrik [facility] 01-15-2023 10:50-0400 Heart rate 77 /min Bakari Henrik [facility] 01-15-2023 10:50-0400 Mean blood pressure 92 mm[Hg] Bakari Henrik [facility] 01-15-2023 10:50-0400 Respiratory rate 17 /min Bakari Chester [facility] 01-15-2023 10:50-0400 SaO2% (BldA) [Mass fraction] 99 % Bakari Chester [facility] 01-15-2023 10:50-0400 Systolic blood pressure 129 mm[Hg] Bakari Chester [facility] 12-05-2022 13:20-0400 Diastolic blood pressure 74 mm[Hg] Gal Das [facility] 12-05-2022 13:20-0400 Heart rate 58 /min Gal Das [facility] 12-05-2022 13:20-0400 Respiratory rate 18 /min Gal Das [facility] 12-05-2022 13:20-0400 SaO2% (BldA) [Mass fraction] 100 % Gal Das [facility] 12-05-2022 13:20-0400 Systolic blood pressure 110 mm[Hg] Gal Das [facility] 12-05-2022 12:00-0400 Heart rate 54 /min Gal Das [facility] 12-05-2022 12:00-0400 SaO2% (BldA) [Mass fraction] 100 % Gal Das [facility] 12-05-2022 11:59-0400 Diastolic blood pressure 72 mm[Hg] Gal Das [facility] 12-05-2022 11:59-0400 Mean blood pressure 84 mm[Hg] Gal Das [facility] 12-05-2022 11:59-0400 Systolic blood pressure 109 mm[Hg] Gal Das [facility] 12-05-2022 11:53-0400 Body temperature 97.52 [degF] Gal Das [facility] 12-05-2022 11:53-0400 Diastolic blood pressure 73 mm[Hg] Gal Das [facility] 12-05-2022 11:53-0400 Heart rate 59 /min Gal Das [facility] 12-05-2022 11:53-0400 Mean blood pressure 87 mm[Hg] Gal Das [facility] 12-05-2022 11:53-0400 Respiratory rate 14 /min Gal Das [facility] 12-05-2022 11:53-0400 SaO2% (BldA) [Mass fraction] 100 % Gal Das [facility] 12-05-2022 11:53-0400 Systolic blood pressure 115 mm[Hg] Gal Das [facility] 12-05-2022 11:40-0400 Mean blood pressure 80 mm[Hg] Gal Das [facility] 12-05-2022 11:40-0400 Respiratory rate 18 /min Gal Das [facility] 12-05-2022 11:30-0400 Mean blood pressure 90 mm[Hg] Gal Das [facility] 12-05-2022 11:15-0400 Body temperature 97.34 [degF] Gal Das [facility] 12-05-2022 11:10-0400 Respiratory rate 18 /min Gal Das [facility] 12-05-2022 11:05-0400 Respiratory rate 21 /min Gal Das [facility] 12-05-2022 11:00-0400 Respiratory rate 11 /min Gal Das [facility] 12-05-2022 07:15-0400 Mean blood pressure 79 mm[Hg] Gal Das [facility] 12-05-2022 07:15-0400 Body temperature 97.88 [degF] Gal Das [facility] 12-05-2022 07:15-0400 Heart rate 72 /min Gal Das [facility] 12-05-2022 07:12-0400 Mean blood pressure 82 mm[Hg] Gal Das [facility] 11-21-2022 10:44-0500 Diastolic blood pressure 75 mm[Hg] Gal Das [facility] 11-21-2022 10:44-0500 Heart rate 67 /min Gal Das [facility] 11-21-2022 10:44-0500 Mean blood pressure 88 mm[Hg] Gal Das [facility] 11-21-2022 10:44-0500 Systolic blood pressure 112 mm[Hg] Gal Das [facility] 11-21-2022 10:44-0500 Heart rate 71 /min Gal Das [facility] 11-21-2022 10:44-0500 SaO2% (BldA) [Mass fraction] 100 % Gal Das [facility] 11-21-2022 10:43-0500 Diastolic blood pressure 79 mm[Hg] Gal Das [facility] 11-21-2022 10:43-0500 Mean blood pressure 91 mm[Hg] Gal Das [facility] 11-21-2022 10:43-0500 Systolic blood pressure 116 mm[Hg] Gal Das [facility] 11-21-2022 10:43-0500 Respiratory rate 16 /min Gal Das [facility] 11-20-2022 08:09-0500 Body height 170.2 cm Eileen Alvarez MD Work Phone: [facility] 11-20-2022 08:09-0500 Body weight 85.73 kg Eileen Alvarez MD Work Phone: [facility] 11-20-2022 08:09-0500 Diastolic blood pressure 81 mm[Hg] Eileen Alvarez MD Work Phone: [facility] 11-20-2022 08:09-0500 Heart rate 67 /min Eileen Alvarez MD Work Phone: [facility] 11-20-2022 08:09-0500 SaO2% (BldA) [Mass fraction] 100 % Eileen Alvarez MD Work Phone: [facility] 11-20-2022 08:09-0500 Systolic blood pressure 137 mm[Hg] Eileen Alvarez MD Work Phone: [facility] 11-03-2022 12:57-0500 Blood Pressure Location Nakia Mcqueen [facility] 11-03-2022 12:57-0500 Body temperature 98.24 [degF] Nakia arie [facility] 11-03-2022 12:57-0500 Diastolic blood pressure 80 mm[Hg] Nakia arie [facility] 11-03-2022 12:57-0500 Heart rate 85 /min Nakia Mcqueen [facility] 11-03-2022 12:57-0500 SaO2% (BldA) [Mass fraction] 98 % Nakia Mcqueen [facility] 11-03-2022 12:57-0500 Systolic blood pressure 104 mm[Hg] Nakia Mcqueen [facility] 09-24-2022 06:57-0500 Blood Pressure Location Aimee Walker [facility] 09-24-2022 06:57-0500 Body temperature 98.24 [degF] Aimee Valadezell [facility] 09-24-2022 06:57-0500 Diastolic blood pressure 64 mm[Hg] Aimee Valadezell [facility] 09-24-2022 06:57-0500 Heart rate 77 /min Aimee Valadezell [facility] 09-24-2022 06:57-0500 SaO2% (BldA) [Mass fraction] 99 % Aimee Valadezell [facility] 09-24-2022 06:57-0500 Systolic blood pressure 118 mm[Hg] Aimee Valadezell [facility] 08-22-2022 10:31-0500 [facility] 08-22-2022 10:31-0500 Body temperature 98.06 [degF] Rahul Salinas [facility] 08-22-2022 10:31-0500 Diastolic blood pressure 76 mm[Hg] Rahul Mejíavicente [facility] 08-22-2022 10:31-0500 Heart rate 95 /min Rahul Correavicente [facility] 08-22-2022 10:31-0500 SaO2% (BldA) [Mass fraction] 98 % Rahul Salinas [facility] 08-22-2022 10:31-0500 Systolic blood pressure 110 mm[Hg] Rahul Salinas [facility] 08-19-2022 09:45-0500 Diastolic blood pressure 69 mm[Hg] DO Jennie Durand Work Phone: [facility] 08-19-2022 09:45-0500 Heart rate 82 /min DO Jennie Durand Work Phone: [facility] 08-19-2022 09:45-0500 Respiratory rate 16 /min DO Jennie Durand Work Phone: [facility] 08-19-2022 09:45-0500 SaO2% (BldA) [Mass fraction] 95 % DO Jennie Durand Work Phone: [facility] 08-19-2022 09:45-0500 Systolic blood pressure 104 mm[Hg] DO Jennie Durand Work Phone: [facility] 08-19-2022 07:41-0500 Body height 170.18 cm DO Jennie Durand Work Phone: [facility] 08-19-2022 07:41-0500 Body weight 83.6 kg DO Jennie Durand Work Phone: [facility] 08-18-2022 17:26-0500 Body temperature 98.06 [degF] Alexis Lopeze [facility] 08-18-2022 17:26-0500 Diastolic blood pressure 83 mm[Hg] Alexis Vazquez [facility] 08-18-2022 17:26-0500 Heart rate 84 /min Alexis Shukla [facility] 08-18-2022 17:26-0500 Respiratory rate 18 /min Alexis Shukla [facility] 08-18-2022 17:26-0500 SaO2% (BldA) [Mass fraction] 98 % Alexis Shukla [facility] 08-18-2022 17:26-0500 Systolic blood pressure 120 mm[Hg] Alexis Shukla [facility] 08-12-2022 15:50-0500 Body temperature 97.9 [degF] DO Jennie Durand Work Phone: [facility] 08-12-2022 15:50-0500 Diastolic blood pressure 83 mm[Hg] DO Jennie Durand Work Phone: [facility] 08-12-2022 15:50-0500 Heart rate 64 /min DO Jennie Durand Work Phone: [facility] 08-12-2022 15:50-0500 Respiratory rate 20 /min DO Jennie Durand Work Phone: [facility] 08-12-2022 15:50-0500 SaO2% (BldA) [Mass fraction] 100 % DO Jennie Durand Work Phone: [facility] 08-12-2022 15:50-0500 Systolic blood pressure 136 mm[Hg] DO Jennie Durand Work Phone: [facility] 08-12-2022 11:00-0500 Body height 170.18 cm DO Jennie Durand Work Phone: [facility] 08-12-2022 06:00-0500 Body weight 88.1 kg DO Jennie Durand Work Phone: [facility] 08-08-2022 10:30-0500 Diastolic blood pressure 76 mm[Hg] Bakari Chester [facility] 08-08-2022 10:30-0500 Heart rate 58 /min Bakari Chester [facility] 08-08-2022 10:30-0500 Mean blood pressure 88 mm[Hg] Bakari Henrik [facility] 08-08-2022 10:30-0500 Respiratory rate 20 /min Bakari Henrik [facility] 08-08-2022 10:30-0500 SaO2% (BldA) [Mass fraction] 100 % Bakari Henrik [facility] 08-08-2022 10:30-0500 Systolic blood pressure 112 mm[Hg] Bakari Henrik [facility] 08-08-2022 10:00-0500 Diastolic blood pressure 86 mm[Hg] Bakari Henrik [facility] 08-08-2022 10:00-0500 Heart rate 64 /min Bakari Henrik [facility] 08-08-2022 10:00-0500 Mean blood pressure 97 mm[Hg] Bakari Henrik [facility] 08-08-2022 10:00-0500 Systolic blood pressure 120 mm[Hg] Bakari Henrik [facility] 08-08-2022 09:13-0500 gluc 98 mg/dL Bakari Henrik [facility] 08-08-2022 09:13-0500 gluc Bakari Chester [facility] 08-08-2022 09:06-0500 Body temperature 97.7 [degF] Bakari Henrik [facility] 08-08-2022 09:06-0500 Diastolic blood pressure 87 mm[Hg] Bakari Henrik [facility] 08-08-2022 09:06-0500 Heart rate 79 /min Bakari Henrik [facility] 08-08-2022 09:06-0500 Respiratory rate 18 /min Bakari Chester [facility] 08-08-2022 09:06-0500 SaO2% (BldA) [Mass fraction] 100 % Bakari Chester [facility] 08-08-2022 09:06-0500 Systolic blood pressure 127 mm[Hg] Bakari Chester [facility] 07-21-2022 10:50-0500 Blood Pressure Location Aimee Walker [facility] 07-21-2022 10:50-0500 Body temperature 97.7 [degF] Aimee Valadezell [facility] 07-21-2022 10:50-0500 Diastolic blood pressure 72 mm[Hg] Aimee Walker [facility] 07-21-2022 10:50-0500 Heart rate 74 /min Aimee Valadezell [facility] 07-21-2022 10:50-0500 SaO2% (BldA) [Mass fraction] 99 % Aimee Valadezell [facility] 07-21-2022 10:50-0500 Systolic blood pressure 128 mm[Hg] Aimee Walker [facility] 05-13-2022 10:09-0400 Diastolic blood pressure 74 mm[Hg] Alexis Rivers [facility] [place] 05-13-2022 10:09-0400 Heart rate 68 /min Alexis Rivers [facility] 05-13-2022 10:09-0400 Systolic blood pressure 112 mm[Hg] Alexis Rivers [facility] [place] 04-21-2022 09:39-0400 Blood Pressure Location Aimeeerin Valadezell [facility] 04-21-2022 09:39-0400 Body temperature 98.24 [degF] Aimee Walker [facility] 04-21-2022 09:39-0400 Diastolic blood pressure 72 mm[Hg] Aimee Walker [facility] 04-21-2022 09:39-0400 Heart rate 94 /min Aimee Walker [facility] 04-21-2022 09:39-0400 SaO2% (BldA) [Mass fraction] 100 % Aimee Walker [facility] 04-21-2022 09:39-0400 Systolic blood pressure 112 mm[Hg] Aimee Walker [facility] 04-20-2022 14:56-0400 Body temperature 98.24 [degF] [facility] 04-20-2022 14:56-0400 Diastolic blood pressure 72 mm[Hg] [facility] 04-20-2022 14:56-0400 Heart rate 69 /min [facility] 04-20-2022 14:56-0400 Respiratory rate 18 /min [facility] 04-20-2022 14:56-0400 SaO2% (BldA) [Mass fraction] 99 % [facility] 04-20-2022 14:56-0400 Systolic blood pressure 111 mm[Hg] Jose Correia [facility] 04-03-2022 19:17-0400 Hourly Rounding Kaylinn Dokken [facility] 04-03-2022 19:17-0400 Promise to Return Kaylinn Dokken [facility] 04-03-2022 19:15-0400 Diastolic blood pressure 71 mm[Hg] Kaylinn Dokken [facility] 04-03-2022 19:15-0400 Heart rate 63 /min Kaylinn Dokken [facility] 04-03-2022 19:15-0400 Mean blood pressure 82 mm[Hg] Kaylinn Dokken [facility] 04-03-2022 19:15-0400 Respiratory rate 18 /min Kaylinn Dokken [facility] 04-03-2022 19:15-0400 SaO2% (BldA) [Mass fraction] 100 % Kaylinn Dokken [facility] 04-03-2022 19:15-0400 Systolic blood pressure 105 mm[Hg] Kaylinn Dokken [facility] 04-03-2022 17:09-0400 Body temperature 98.06 [degF] Kaylinn Dokken [facility] 04-03-2022 17:09-0400 Diastolic blood pressure 83 mm[Hg] Kaylinn Dokken [facility] 04-03-2022 17:09-0400 Heart rate 87 /min Kaylinn Dokken [facility] 04-03-2022 17:09-0400 Respiratory rate 18 /min Larry Baker [facility] 04-03-2022 17:09-0400 SaO2% (BldA) [Mass fraction] 99 % Larry Baker [facility] 04-03-2022 17:09-0400 Systolic blood pressure 119 mm[Hg] Larry Baker [facility] 02-06-2022 09:06-0400 Blood Pressure Location Aimee Valadezell [facility] 02-06-2022 09:06-0400 Body temperature 97.52 [degF] Aimee Walker [facility] 02-06-2022 09:06-0400 Diastolic blood pressure 72 mm[Hg] Aimeeerin Valadezell [facility] 02-06-2022 09:06-0400 Heart rate 81 /min Aimee Walker [facility] 02-06-2022 09:06-0400 SaO2% (BldA) [Mass fraction] 100 % Aimee Walker [facility] 02-06-2022 09:06-0400 Systolic blood pressure 130 mm[Hg] Aimee Walker [facility] 01-29-2022 10:31-0400 Blood Pressure Location Aimee Walker [facility] 01-29-2022 10:31-0400 Body temperature 97.16 [degF] Aimee Walker [facility] 01-29-2022 10:31-0400 Diastolic blood pressure 76 mm[Hg] Aimee Valadezell [facility] 01-29-2022 10:31-0400 Heart rate 94 /min Aimee Walker [facility] 01-29-2022 10:31-0400 SaO2% (BldA) [Mass fraction] 98 % Aimee Walker [facility] 01-29-2022 10:31-0400 Systolic blood pressure 118 mm[Hg] Aimee Walker [facility] 02-01-2021 07:15-0400 Body temperature 97.7 [degF] Berry Lawson MD Work Phone: [employer] Work Phone: 02-01-2021 07:15-0400 Diastolic blood pressure 63 mm[Hg] Berry Lawson MD Work Phone: [employer] Work Phone: 02-01-2021 07:15-0400 Heart rate 82 /min Berry Lawson MD Work Phone: [employer] Work Phone: 02-01-2021 07:15-0400 Respiratory rate 18 /min Berry Lawson MD Work Phone: [employer] Work Phone: 02-01-2021 07:15-0400 SaO2% (BldA) [Mass fraction] 98 % Berry Lawson MD Work Phone: [employer] Work Phone: 02-01-2021 07:15-0400 Systolic blood pressure 110 mm[Hg] Berry Lawson MD Work Phone: [employer] Work Phone: 01-30-2021 16:54-0400 Body height 170.2 cm Berry Lawson MD Work Phone: [employer] Work Phone: 01-30-2021 16:54-0400 Body mass index (BMI) [Ratio] 38.53 kg/m2 Berry Lawson MD Work Phone: [employer] Work Phone: 01-30-2021 16:54-0400 Body weight 111.58 kg Berry Lawson MD Work Phone: [employer] Work Phone: 01-30-2021 14:27-0400 Diastolic blood pressure 66 mm[Hg] David Nash MD Work Phone: [employer] Work Phone: 01-30-2021 14:27-0400 Heart rate 93 /min David Nash MD Work Phone: [employer] Work Phone: 01-30-2021 14:27-0400 Respiratory rate 16 /min David Nash MD Work Phone: [employer] Work Phone: 01-30-2021 14:27-0400 SaO2% (BldA) [Mass fraction] 98 % David Nash MD Work Phone: [employer] Work Phone: 01-30-2021 14:27-0400 Systolic blood pressure 107 mm[Hg] David Nash MD Work Phone: [employer] Work Phone: 01-30-2021 09:51-0400 Body temperature 97.2 [degF] David Nash MD Work Phone: [employer] Work Phone: 01-26-2021 09:00-0400 Body temperature 98.2 [degF] Gamaliel Vickers [email or web address] Work Phone: [employer] Work Phone: 01-26-2021 09:00-0400 Diastolic blood pressure 77 mm[Hg] Gamaliel Vickers DO Work Phone: [employer] Work Phone: 01-26-2021 09:00-0400 Heart rate 90 /min Gamaliel Vickers [email or web address] Work Phone: [employer] Work Phone: 01-26-2021 09:00-0400 Respiratory rate 16 /min Gamaliel Vickers [email or web address] Work Phone: [employer] Work Phone: 01-26-2021 09:00-0400 SaO2% (BldA) [Mass fraction] 96 % Gamaliel Vickers DO Work Phone: [employer] Work Phone: 01-26-2021 09:00-0400 Systolic blood pressure 111 mm[Hg] Gamaliel Vickers DO Work Phone: [employer] Work Phone: 01-08-2021 07:35-0400 Body temperature 97.81 [degF] Gamaliel Vickers DO Work Phone: [employer] Work Phone: 01-08-2021 07:35-0400 SaO2% (BldA) [Mass fraction] 97 % Gamaliel Vickers [email or web address] Work Phone: [employer] Work Phone: 01-08-2021 07:29-0400 Diastolic blood pressure 77 mm[Hg] Gamaliel Vickers [email or web address] Work Phone: [employer] Phone: 01-08-2021 07:29-0400 Heart rate 87 /min Gamaliel Vickers [email or web address] Work Phone: [facility] Phone: 01-08-2021 07:29-0400 Respiratory rate 18 /min Gamaliel Vickers [email or web address] Work Phone: [facility] Phone: 01-08-2021 07:29-0400 Systolic blood pressure 123 mm[Hg] Gamaliel Vickers [employer] Phone: [facility] Phone: 01-07-2021 06:29-0400 Body height 170.2 cm Gamaliel Vickers [email or web address] Work Phone: [facility] Phone: 01-07-2021 06:29-0400 Body mass index (BMI) [Ratio] 40.68 kg/m2 Gamaliel Vickers [email or web address] Work Phone: [facility] Phone: 01-07-2021 06:29-0400 Body weight 117.8 kg Gamaliel Vickers [employer] Phone: [facility] Phone: 12-24-2020 10:33-0400 Body height 170.2 cm [facility] Phone: 12-24-2020 10:33-0400 Body mass index (BMI) [Ratio] 42.76 kg/m2 [facility] Phone: 12-24-2020 10:33-0400 Body temperature 97.7 [degF] [facility] Phone: 12-24-2020 10:33-0400 Body weight 123.83 kg [facility] Phone: 12-24-2020 10:33-0400 Diastolic blood pressure 76 mm[Hg] [facility] [employer] Work Phone: 12-24-2020 10:33-0400 Heart rate 71 /min [facility] [employer] Work Phone: 12-24-2020 10:33-0400 Respiratory rate 18 /min [facility] Phone: 12-24-2020 10:33-0400 SaO2% (BldA) [Mass fraction] 98 % [facility] Phone: 12-24-2020 10:33-0400 Systolic blood pressure 115 mm[Hg] [facility] Phone: 09-28-2020 08:40-0500 BP Diastolic 75 mm[Hg] [facility] [place] 09-28-2020 08:40-0500 BP Systolic 117 mm[Hg] [facility] [place] 09-28-2020 08:40-0500 Pulse (Heart Rate) 84 /min [facility] [place] 09-28-2020 08:40-0500 Pulse Oximetry 100 % [facility] [place] 09-28-2020 08:25-0500 Body Temperature 96.8 [degF] [facility] [place] 09-28-2020 08:25-0500 Respiratory Rate 23 /min [facility] [place] 09-28-2020 07:07-0500 BMI (Body Mass Index) 45.66 kg/m2 [facility] [place] 09-28-2020 07:07-0500 Body weight 132.22 kg [facility] [place] [place] 09-28-2020 07:07-0500 Height 170.2 cm [facility] [place] Encounters Encounter Date Encounter Type Care Provider Facility Start: 04-04-2025 ambulatory Lindy Keen Facility :[facility] Start: 03-29-2025 End: 03-29-2025 ambulatory Sami Brewster Facility:[facility] Start: 03-16-2025 End: 03-17-2025 Pre-admission assessment Jak W [place] [facility] Start: 03-13-2025 ambulatory Jak W [place] Facility:[facility] Start: 03-09-2025 End: 03-09-2025 ambulatory Babar Mayers Facility:[facility] Start: 03-09-2025 End: 03-09-2025 Patient encounter procedure Babar Mayers [facility] Start: 03-03-2025 End: 03-03-2025 ambulatory Babar Mayers Facility:[facility] Start: 03-03-2025 End: 03-03-2025 Pain Management Babar Mayers [facility] Start: 03-02-2025 End: 03-02-2025 ambulatory MARII RICK Facility:[facility] Start: 03-02-2025 End: 03-02-2025 Patient encounter procedure MARII RICK [facility] Start: 02-17-2025 End: 02-17-2025 Emergency department patient visit Bryan Avila [facility] Start: 02-16-2025 End: 02-16-2025 ambulatory Jak W Nata Facility:[facility] Start: 02-16-2025 End: 02-16-2025 Patient encounter procedure Jak W [place] [facility] Start: 02-16-2025 End: 02-16-2025 ambulatory MOLLY WAGNER Facility:[facility] Start: 02-16-2025 End: 02-16-2025 Patient encounter procedure Jak Peace [facility] Start: 02-11-2025 End: 02-13-2025 Refill Tevin Carson DO Work Phone: [facility] Comment on above: Refill Request Start: 02-09-2025 End: 02-09-2025 ambulatory Fernandez Daniels Facility:[facility] Start: 02-09-2025 End: 02-09-2025 Patient encounter procedure MOLLY WAGNER [facility] Start: 02-03-2025 End: 02-18-2025 Pre-admission assessment Babar Mayers [facility] Start: 02-03-2025 End: 02-03-2025 ambulatory MOLLY WAGNER Facility:[facility] Start: 01-27-2025 End: 01-27-2025 ambulatory Orlando Kate Facility:[facility] Start: 01-27-2025 End: 01-27-2025 Patient encounter procedure Orlando Kate [facility] Start: 01-24-2025 End: 01-24-2025 ambulatory Babar Mayers Facility:[facility] Start: 01-24-2025 End: 01-24-2025 Pain Management Babar Mayers [facility] Start: 01-19-2025 End: 01-20-2025 Pre-admission assessment Orlando Kate [facility] Start: 01-13-2025 End: 01-13-2025 ambulatory Orlando Kate Facility:[facility] Start: 01-13-2025 End: 01-13-2025 Patient encounter procedure Orlando Kate [facility] Start: 12-16-2024 End: 12-16-2024 Patient encounter procedure [facility] [address] [place] Work Phone: Start: 12-16-2024 End: 12-16-2024 ambulatory NON STAFF [facility] Work Phone: Start: 12-14-2024 End: 12-15-2024 ambulatory David B Rhiew Facility:[facility] Start: 12-14-2024 End: 12-15-2024 Patient encounter procedure David B Rhiew [facility] Start: 12-12-2024 End: 12-12-2024 Patient encounter procedure [facility] [address] Work Phone: Start: 12-12-2024 End: 12-12-2024 ambulatory NON STAFF [facility] Work Phone: Start: 11-29-2024 End: 11-30-2024 ambulatory Jennie Durand Facility:[facility] Start: 11-28-2024 End: 11-28-2024 ambulatory Babar Mayers Facility:[facility] Start: 11-28-2024 End: 11-28-2024 Pain Management Babar Mayers [facility] Start: 11-18-2024 End: 11-18-2024 ambulatory KURT BALBUENA Facility:[facility] Start: 11-15-2024 End: 11-15-2024 ambulatory Orlando Kate Facility:[facility] Start: 11-15-2024 End: 11-15-2024 Patient encounter procedure Orlando Kate [facility] Start: 11-11-2024 End: 11-11-2024 ambulatory David B Rhiew Facility:[facility] Start: 11-11-2024 End: 11-11-2024 Patient encounter procedure David Zazueta [facility] Start: 11-02-2024 End: 11-02-2024 Patient encounter procedure Jennie Durand [facility] Start: 11-02-2024 End: 01-11-2025 ambulatory Jennie Durand Facility:[facility] Start: 11-01-2024 End: 11-11-2024 Pre-admission assessment Jennie Durand [facility] Start: 10-18-2024 End: 10-18-2024 Emergency department patient visit Jose Correia [facility] Start: 10-17-2024 End: 10-17-2024 [facility] Start: 10-17-2024 End: 10-17-2024 Patient encounter procedure [facility] Comment on above: Population Health Na vigation Outreach (Mauricio Phan) Start: 10-14-2024 End: 10-14-2024 ambulatory KURT A ESHA Facility:[facility] Start: 09-30-2024 End: 09-30-2024 ambulatory KURT A ESHA Facility:[facility] [place] [facility] Start: 09-27-2024 End: 09-27-2024 Bamboo flowsheet Corby Larsen DO Work Phone: [facility] Start: 09-27-2024 End: 09-27-2024 Bamboo flowsheet Corby Larsen DO Work Phone: [facility] Start: 09-27-2024 End: 09-27-2024 Patient encounter procedure Corby Larsen DO Work Phone: [facility] Comment on above: Myalgia Start: 09-27-2024 End: 09-27-2024 ambulatory CORBY LARSEN Not Available Start: 09-27-2024 End: 09-27-2024 ambulatory KURTBrisa BALBUENA Facility:[facility] Start: 09-26-2024 End: 09-26-2024 ambulatory KURT BALBUENA Facility:[facility] Start: 09-21-2024 End: 09-21-2024 Clinisync Result Encounter Christsamanta Moralesett DO Work Phone: [facility] Unsolicited Start: 09-21-2024 End: 09-21-2024 Clinisync Result Encounter Christsamanta Larsen DO Work Phone: [facility] External [facility] Unsolicited Start: 09-21-2024 End: 09-21-2024 Office outpatient visit 25 minutes Corby Larsen DO Work Phone: [facility] Comment on above: Ataxia (Primary Dx); Myalgia Start: 09-21-2024 End: 09-21-2024 ambulatory CORBY LARSEN Not Available Start: 09-20-2024 End: 09-20-2024 Lab Drop off KURT BALBUENA [facility] Start: 09-20-2024 End: 09-20-2024 ambulatory KURT BALBUENA Facility:[facility] Start: 09-16-2024 ambulatory KURT BALBUENA Facility :[facility] Start: 09-15-2024 End: 09-15-2024 Emergency department patient visit [facility]Emer[facility] Work Phone: Start: 09-15-2024 End: 09-15-2024 ambulatory TIFFANIE MARADIAGA Facility:[facility] Start: 09-13-2024 End: 09-13-2024 Subsequent hospital visit by physician Clarita Smith Echo/Vasc Room 2 [facility] Comment on above: Angina pectoris; Shortness of breath; Palpitations; Family history of ischemic heart disease; Primary hypertension Start: 09-13-2024 End: 09-13-2024 ambulatory [facility] Start: 09-04-2024 End: 09-05-2024 ambulatory Tevin Carson DO Work Phone: Family Medicine Comment on above: Blood work Start: 08-25-2024 End: 08-25-2024 ambulatory Mary Jo Trinidad RN Work Phone: [employer] [employer] [facility] Start: 08-25-2024 End: 08-25-2024 Patient encounter procedure Mary Jo Trinidad RN Work Phone: [facility] [employer] [facility] Comment on above: CARMELINA LAN RN ( ED Utilization Review per request of payor/) Start: 08-18-2024 End: 08-18-2024 Patient encounter procedure TIFFANIE MARADIAGA [facility] Start: 08-17-2024 End: 08-17-2024 Refill Tevin Carson DO Work Phone: Family Medicine Comment on above: Med Change Request Start: 08-08-2024 End: 08-08-2024 Office outpatient new 45 minutes Aleah Howard MD Work Phone: [facility] Comment on above: Angina pectoris; Shortness of breath; Palpitations; Family history of ischemic heart disease; Primary hypertension; Current smoker; BMI 29.0-29.9,adult Start: 08-08-2024 End: 08-08-2024 ambulatory [facility] Start: 07-26-2024 End: 07-26-2024 ambulatory TEVIN KATEE Facility:[facility] Start: 07-25-2024 End: 07-25-2024 ambulatory TEVIN CARSON Facility:[facility] Start: 07-25-2024 End: 07-25-2024 Office outpatient visit [...] Appointment Start: 07-11-2024 End: 07-11-2024 ambulatory ABI BRYANTROSIEQUEENIE Facility:[facility] Start: 07-11-2024 End: 07-11-2024 Subsequent hospital visit by physician Procedure Mammo [facility] Comment on above: Abnormal mammogram o f left breast [R92.8] Start: 07-04-2024 End: 07-04-2024 ambulatory TEVIN CARSON Facility:[facility] Start: 07-04-2024 End: 07-04-2024 Patient encounter procedure Fatuma Tyler APRN.TRAFFIC CHIEF Work Phone: [facility] Comment on above: Abnormal mammogram ( [...] breast [N63.21] Start: 07-03-2024 Non-patient / Non-visit [facility] Work Phone: Start: 07-01-2024 End: 07-01-2024 ambulatory TEVIN CARSON Facility:[facility] Start: 07-01-2024 End: 07-01-2024 Office outpatient visit 25 minutes Tevin Ledy DO Work Phone: Family Medicine Comment on above: Chest pain, unspecif ied type (Primary Dx); Palpitations; Bipolar affective disorder in remission (HCC); History of substance abuse (HCC); Borderline personality disorder (HCC); Serum calcium elevated Start: 06-30-2024 End: 07-01-2024 Telephone encounter Fatuma Tyler APRN.TRAFFIC CHIEF Work Phone: [facility] Comment on above: Appointment Start: 05-30-2024 End: 05-30-2024 ambulatory Lenora Yee RN Work Phone: [employer] Comment on above: CARMELINA LAN RN ( ED Utilization review per request of payer) Start: 04-26-2024 ambulatory Elia mcdowell DO Work Phone: Family Medicine Start: 03-08-2024 End: 03-08-2024 Emergency department patient visit Aelxis Shukla [facility] Start: 03-08-2024 End: 03-08-2024 Subsequent hospital visit by physician Mri [facility] (Lg Bore/1.5t) Radiology MRI Comment on above: 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 ] Start: 03-08-2024 End: 03-08-2024 ambulatory LEONELA AGUIRRE Facility:[facility] Start: 03-08-2024 End: 03-08-2024 Patient encounter procedure Elia Baires DO Work Phone: [facility] Comment on above: Routine health maint enance [...] encounter status Elia Baires DO Work Phone: [facility] Work Phone: Start: 02-25-2024 End: 02-25-2024 ambulatory ELIA BAIRES Facility:[facility] Start: 01-13-2024 End: 01-13-2024 ambulatory [facility] Start: 01-05-2024 Telephone encounter Elia rob DO Work Phone: [facility] Start: 01-04-2024 End: 01-04-2024 ambulatory ELIA BAIRES Facility:[facility] Start: 01-04-2024 End: 01-04-2024 Patient encounter procedure Elia Baires DO Work Phone: [facility] Comment on above: Panic disorder (Prim masoud Dx); Borderline personality disorder (HCC); Bipolar affective disorder in remission (HCC); Chronic alcoholism in remission (HCC); Routine health maintenance Start: 01-04-2024 End: 01-04-2024 Patient encounter status Elia Baires DO Work Phone: [facility] Start: 12-31-2023 End: 12-31-2023 Emergency department patient visit DO Jennie Durand Work Phone: [facility] Work Phone: Start: 12-25-2023 ambulatory SELF REFERRAL Facility: [facility] Start: 12-24-2023 End: 12-24-2023 Emergency department patient visit DO Jennie Durand Work Phone: [facility] Work Phone: Start: 2023 ambulatory Otto Larsen Facility:[facility] Start: 12-10-2023 End: 12-10-2023 Emergency department patient visit DO Jennie Durand Work Phone: [facility] Work Phone: Start: 12-09-2023 End: 12-09-2023 ambulatory Jennie Durand Facility:[facility] Start: 12-09-2023 End: 12-09-2023 Patient encounter procedure Jennie Durand [facility] Start: 10-23-2023 End: 10-26-2023 [facility] Start: 10-12-2023 End: 10-15-2023 ambulatory GAMALIEL [facility] Start: 09-18-2023 End: 09-18-2023 Subsequent hospital visit by physician aGmaliel Vickers DO Work Phone: [facility] [place] Start: 08-31-2023 End: 09-01-2023 ambulatory HEYDIKeshav CAVAZOSGAGERUTH Facility:[facility] Start: 08-28-2023 End: 08-28-2023 ambulatory Imad Asaad Other [facility] Other Start: 08-28-2023 Telephone encounter Imad Asaad [facility] [employer] [facility] Start: 08-18-2023 End: 08-21-2023 ambulatory [facility] Start: 08-15-2023 End: 08-15-2023 Emergency department patient visit DO Jennie Durand Work Phone: [facility] Work Phone: Start: 08-14-2023 End: 08-14-2023 Emergency department patient visit DO Jennie Durand Work Phone: [facility] Work Phone: Start: 08-13-2023 End: 08-13-2023 ambulatory Imad Asaad Other [facility] Other Start: 08-13-2023 Office outpatient ne w 45 minutes Imad Asaad [facility] Start: 08-12-2023 End: 08-15-2023 ambulatory [facility] Start: 07-08-2023 End: 07-08-2023 ambulatory Ania Javed Other [facility] Other Start: 07-08-2023 Office outpatient ne w 20 minutes Aniafroylan Javed [facility] Start: 07-03-2023 End: 07-03-2023 Emergency department patient visit DO Jennie Durand Work Phone: [facility] Work Phone: Start: 07-02-2023 End: 07-02-2023 Emergency department patient visit Bakari Chester [facility] Start: 06-10-2023 End: 06-10-2023 ambulatory EILEEN ALVAREZ Facility:[facility] Start: 06-09-2023 End: 06-09-2023 Emergency department patient visit Alexis Vazquez Facility:[facility] Start: 06-03-2023 Refill Eileen Alvarez MD Work Phone: Neurology Comment on above: Refill Request Start: 03-19-2023 End: 03-19-2023 ambulatory ADDING MACHINE OPERATOR GANESH CORDERO Facility:[facility] Start: 03-19-2023 End: 03-19-2023 Patient encounter procedure GANESH CORDERO [facility] Start: 01-29-2023 End: 01-29-2023 Subsequent hospital visit by physician Marixa [facility] Vicky (1.5t) Work Phone: Radiology Comment on above: 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] Start: 01-15-2023 End: 01-15-2023 Emergency department patient visit Bakari Chester [facility] Start: 01-02-2023 End: 01-02-2023 Patient encounter procedure Nakia Mcqueen [facility] Start: 12-12-2022 Refill Eileen Alvarez MD Work Phone: Neurology Comment on above: Refill Request Start: 12-05-2022 End: 12-05-2022 Admission to same day surgery center Gal Das [facility] Start: 11-21-2022 End: 11-21-2022 Patient encounter procedure Gal Das [facility] Start: 11-20-2022 End: 11-20-2022 ambulatory EILEEN ALVAREZ Facility:[facility] Start: 11-20-2022 End: 11-20-2022 Patient encounter procedure Eileen Alvarez MD Work Phone: Neurology Comment on above: Idiopathic intracran ial hypertension (Primary Dx); Depression, unspecified depression type; Primary hypertension; Hx of gastric bypass; H/O foot surgery Start: 11-03-2022 End: 11-03-2022 Patient encounter procedure Nakia Mcqueen [facility] Start: 10-30-2022 End: 10-30-2022 ambulatory STEFANIE SINGH . Facility: Start: 10-23-2022 End: 10-23-2022 Lab Drop off Gal Das [facility] Start: 10-14-2022 End: 10-14-2022 Patient encounter procedure Rita Loja [facility] Start: 09-24-2022 End: 09-24-2022 Patient encounter procedure Aimee Walker [facility] Start: 08-22-2022 End: 08-22-2022 Patient encounter procedure Rahul Salinas [facility] Start: 08-19-2022 End: 08-19-2022 ambulatory DO Jennie Durand Work Phone: [facility] Work Phone: Start: 08-19-2022 End: 08-19-2022 Patient encounter procedure DO Jennie Durand Work Phone: [facility] Start: 08-18-2022 End: 08-18-2022 ambulatory RAMSES MARTINEZ . Facility:[facility] Start: 08-18-2022 End: 08-18-2022 Emergency department patient visit Alexis Shukla [facility] Start: 08-16-2022 End: 08-16-[address] NEW Kaplan Facility:[facility] Start: 08-12-2022 ambulatory Facility:[id number] Start: 08-11-2022 End: 08-12-2022 Evaluation and management of inpatient DO Jennie Durand Work Phone: [facility] [place] [facility] Start: 08-11-2022 End: 08-12-2022 observation encounter DO Jennie Durand Work Phone: [facility] Work Phone: Start: 08-11-2022 End: 08-11-[address] WEI PHAM Facility:[facility] Start: 08-08-2022 End: 08-08-2022 Emergency department patient visit Bakari Chester [facility] Start: 07-21-2022 End: 07-21-2022 Patient encounter procedure Aimee Walker [facility] Start: 07-19-2022 End: 07-19-[address] DOCTOR CAMARILLO Facility:[facility] Start: 07-18-2022 Telephone encounter Eduin Mckee Plastic Surgery Comment on above: Appointment Start: 06-12-2022 End: 06-12-[address] CAROLYNE RALPH Facility:[facility] Start: 06-10-2022 End: 06-10-2022 Patient encounter procedure Alexis Rivers [facility] Start: 05-30-2022 End: 05-30-2022 ambulatory GABRIELA CAMARGO Facility:[facility] Start: 05-13-2022 End: 05-13-2022 Patient encounter procedure Alexis PhillpisEusebio Rivers [facility] [place] Start: 04-22-2022 End: 04-22-2022 Patient encounter procedure Aimee Walker [facility] Start: 04-21-2022 End: 04-21-2022 Patient encounter procedure Aimee Walker [facility] Start: 04-20-2022 End: 04-20-2022 Emergency department patient visit Jose Correia [facility] Start: 04-07-2022 End: 04-07-[address] LADY SANCHEZ . Facility:[facility] Start: 04-03-2022 End: 04-03-2022 Emergency department patient visit Larry Baker [facility] Start: 04-03-2022 End: 04-03-2022 Well adult monitoring check done Larry Baker [facility] Start: 02-12-2022 End: 02-12-2022 Patient encounter procedure Amee Gonzalez PA-C Work Phone: Otolaryngology Comment on above: Burning tongue (Prim masoud Dx); Irritation of oral cavity Start: 02-08-2022 End: 02-08-2022 ambulatory STEFANIE SINGH . Facility:[facility] Start: 02-06-2022 End: 02-06-2022 Patient encounter procedure Aimee Walker [facility] Start: 01-30-2022 End: 01-30-2022 ambulatory GABRIELA CAMARGO Facility:[facility] Start: 01-29-2022 End: 01-29-2022 Patient encounter procedure Aimee Walker [facility] Start: 01-27-2022 ambulatory Eduin Mckee MD Work Phone: Plastic Surgery Comment on above: questions Start: 01-10-2022 Telephone encounter Eduin marx MD Work Phone: Plastic Surgery Comment on above: Patient Question; Ap pointment Start: 01-09-2022 End: 01-09-2022 Patient encounter procedure Aimee Walker [facility] Start: 12-27-2021 Telephone encounter Eduin marx MD Work Phone: Plastic Surgery Comment on above: Orders Scheduling Start: 11-16-2021 End: 11-17-[address] WILEY HELM Facility:[facility] Start: 02-04-2021 End: 02-06-2021 Subsequent hospital visit by physician [facility] Cat Scan Room [facility] CT Scan Comment on above: Omental infarction ( HCC) Start: 01-30-2021 End: 02-01-2021 Evaluation and management of inpatient Berry Lawson MD Work Phone: [facility] Ortho/Med Surg Comment on above: Surgery, elective (P rimary Dx); Omental infarction (HCC) Start: 01-30-2021 End: 01-30-2021 Emergency department patient visit David Nash MD Work Phone: [facility] ED Comment on above: Generalized abdomina [...] Dx) Start: 01-03-2021 End: 01-04-2021 ambulatory JENNIE Jeni DURAND [facility] Start: 01-03-2021 End: 01-03-2021 Patient encounter status Edgardo Mcclendon Scre ening Start: 01-03-2021 End: 01-03-2021 Subsequent hospital visit by physician Edgardo Mcclendon Screening Schedule EDGARDO Mcclendon Screening Comment on above: Preop testing (Prima ry Dx) Start: 12-24-2020 End: 12-28-2020 Subsequent hospital visit by physician Christiane Salinas Xr [facility] Radiology Comment on above: Arrived Start: 11-01-2020 End: 11-03-2020 Subsequent hospital visit by physician Chaitanya Jett Radiologist [facility] Comment on above: Gastroesophageal ref lux disease with esophagitis without hemorrhage Start: 10-26-2020 End: 10-26-2020 Subsequent hospital visit by physician Lyle Mcclendon Screening Schedule LYLE Covzac Screening Comment on above: Preoperative testing Start: 09-28-2020 End: 09-28-2020 Subsequent hospital visit by physician Gamaliel Vickers Work Phone: [facility] [place] Start: 09-24-2020 End: 09-28-2020 Subsequent hospital visit by physician Chaitanya Mcclendon19 Pat Screening Schedule LYLE PRE ADMIT Comment on above: Preoperative testing Start: 11-01-2015 Patient encounter procedure LINDY ROCAEL Facility:[facility] Procedures Date Procedure Procedure Detail [...] 3d rendering w/interp&postproc diff work station Samekeshav Aguirre MD Work Phone: Start: 03-08-2024 Mri [...] exam esophagus single contrast study Gamaliel Vickers [email or web address] Work Phone: Start: 01-08-2021 Basic metabolic pane l calcium total Gamaliel Vickers [email or web address] Work Phone: Start: 01-07-2021 Basic metabolic pane l calcium total Gamaliel Vickers DO Work Phone: Start: 01-07-2021 End: 01-07-2021 Laps gstr rstcv px w/byp tian-en-y limb <150 cm Gamaliel Vickers [email or web address] Work Phone: Start: 01-07-2021 Urine test visual color cmprsn meths Gamaliel Vickers [email or web address] Work Phone: Start: 12-24-2020 Assay of nicotine Enmanuel Vickers [email or web address] Work Phone: Start: 12-24-2020 Basic metabolic pane l calcium total Gamaliel Vickers [email or web address] Work Phone: Start: 12-24-2020 Radiologic exam ches t 2 views Gamaliel Vickers Work Phone: Start: 12-24-2020 Ecg routine ecg w/le ast 12 lds trcg only w/o i&r Gamaliel Vickers DO Work Phone: Start: 12-24-2020 EKG REPORT Hpf Scanni ng Start: 11-01-2020 Radex upper gi w/wo glucagon/delay imges w/o kub Gamalielkemar Vickers Work Phone: Start: 09-24-2020 COVID-19 Obdulio Jau [...] Aimee Walker Esophagogastrostomy, antesternal or antethoracic Aimee Aaron ft (qualifier value) Aimeeletha Walker Comment on above: reconstruction ft (qualifier value) Jennie Jhon [place] H/O: tubal ligation Aimeeletha Walker Investigation of transfusion reaction DO Jennie Durand Work Phone: Lumbar puncture to isreal romanoer intracranial pressure Rahul Salinas Plan of Treatment Date Care Activity Detail Author Start: 2038 Zoster Vaccines (1 of 2) Zoster Vaccines (1 of 2) [facility] Start: 02-24-2027 Diabetes mellitus screening Diabetes Screening [facility] Start: 07-25-2025 Annual PCP Team Chronic Disease Visit Annual PCP Team Chronic Disease Visit [facility] Start: 07-25-2025 BP Controlled (<130/80) BP Controlled (<130/80) [facility] Start: 07-01-2025 Annual PCP Team Chronic Disease Visit Annual PCP Team Chronic Disease Visit [facility] Start: 07-01-2025 BP Controlled (<130/80) BP Controlled (<130/80) [facility] Start: 05-15-2025 Influenza vaccination Influenza Vaccine (Season Ended) [facility] Start: 03-08-2025 Annual PCP Team Chronic Disease Visit Annual PCP Team Chronic Disease Visit [facility] Start: 03-08-2025 BP Controlled (<130/80) BP Controlled (<130/80) [facility] Start: 03-08-2025 Urine microalbumin profile DTaP,Tdap,Td Vaccine (1 - Tdap) [facility] Comment on above: Postponed from 12/18/2007 (Declined at t his time) Start: 01-03-2025 Annual PCP Team Chronic Disease Visit Annual PCP Team Chronic Disease Visit [facility] Start: 12-12-2024 Aldolase measurement [facility] Start: 12-12-2024 Antibody to Scl-70 measurement [facility] Start: 12-12-2024 Hemolytic complement CH50 level [facility] Start: 12-12-2024 ENVIRONMENTAL GEOLOGIST antibody measurement [facility] Start: 12-12-2024 [facility] Start: 10-20-2024 End: 10-20-2024 Patient encounter procedure 10/20/2024 8:40 AM EST Office Visit [facility] SAMUEL[facility] [address] [place] [address] Tennille FineahLEONOR [address] [place] [id number] [facility] Start: 10-04-2024 End: 10-04-2024 Patient encounter procedure 10/04/2024 12:40 PM EST Appointment Radiology MRI [address] [place], [place] [id number] MRI BREAST WO/W IVCON Radiology MRI Comment on above: MRI BREAST WO/W IVCON Start: 09-27-2024 End: 09-27-2024 Patient encounter procedure RUTH [facility] Comment on above: Arrived Start: 09-21-2024 End: 09-21-2025 EMG 2 Extremities EMG 2 Extremities Neurology Routine Myalgia Expected: 09/21/2024, Expires: 09/21/2025 [facility] Work Phone: Comment on above: Expected: 09/21/2024, Expires: Start: 09-21-2024 End: 09-21-2025 MR Brain WO and W contrast IV MR brain w and wo contrast routine Imaging Routine Ataxia Expected: 09/21/2024, Expires: 09/21/2025 [facility] Comment on above: Expected: 09/21/2024, Expires: Start: 09-21-2024 End: 09-21-2025 Myoglobin, serum Myoglobin, serum Lab Routine Myalgia Expected: 09/21/2024 (Approximate), Expires: 09/21/2025 [facility] Comment on above: Expected: 09/21/2024 (Approximate), Expi res: 09/21/2025 Start: 09-21-2024 End: 09-21-2025 Nuclear Ab [Titer] in Serum by Immunofluorescence CYNDI Lab Routine Myalgia Expected: 09/21/2024 (Approximate), Expires: 09/21/2025 [facility] Healthcare Comment on above: Expected: 09/21/2024 (Approximate), Expi res: 09/21/2025 Start: 09-21-2024 End: 09-21-2025 Thyrotropin [Units/volume] in Serum or Plasma TSH Lab Routine Myalgia Expected: 09/21/2024 (Approximate), Expires: 09/21/2025 [facility] Comment on above: Expected: 09/21/2024 (Approximate), Expi res: 09/21/2025 Start: 09-19-2024 End: 09-19-2024 Patient encounter procedure 09/19/2024 3:00 PM EST Office Visit [facility] [address] [facility] [place] [address] Aleah Howard MD [address] [place] [address] [facility] Start: 09-13-2024 End: 09-13-2024 Patient encounter procedure [facility] Comment on above: ER Follow up Start: 08-24-2024 End: 08-24-2024 ambulatory 08/24/2024 11:20 AM EST [facility] [address] [place] [address] [place] [address] [place] [address] Return in about 4 weeks (around 08/22/2024) Family Medicine Comment on above: Return in about 4 weeks (around ) Start: 08-23-2024 End: 08-23-2024 [facility] Start: 08-08-2024 End: 08-08-2025 NM Heart Perfusion W stress and W radionuclide IV Nuclear Stress Test Cardiac Nuclear Medicine Routine Angina pectoris Shortness of breath Palpitations Family history of ischemic heart disease Primary hypertension Expected: 08/08/2024 (Approximate), Expires: 08/08/2025 [facility] Service Area Work Phone: Comment on above: Expected: 08/08/2024 (Approximate), Expi res: 08/08/2025 Start: 08-08-2024 End: 08-08-2026 Heart Transthoracic Transthoracic Echo Complete Echocardiography Routine Angina pectoris Shortness of breath Palpitations Family history of ischemic heart disease Primary hypertension Expected: 08/08/2024 (Approximate), Expires: 08/08/2026 [facility] Work Phone: Comment on above: Expected: 08/08/2024 (Approximate), Expi res: 08/08/2026 Start: 08-05-2024 End: 08-05-2024 ambulatory [facility] Comment on above: Fhx of pancreatic cancer, Phx of pancrea tic mass Action taken: Marked in [employer]Base for Schedulers Start: 07-29-2024 End: 07-29-2024 Patient encounter procedure 07/29/2024 2:40 PM EST Office Visit Family Medicine [address] [place] [address] [place] [address] [place], [place] [id number] Return in about 4 weeks (around 07/29/2024) Family Medicine Comment on above: Return in about 4 weeks (around 07/29/20) Start: 07-27-2024 End: 07-27-2024 Patient encounter procedure 07/27/2024 11:30 AM EST Office Visit Breast [place] [address] [place] [address] Kiera Gilmore DO [address] [place] [address] Teresa David, 07/27/24, 1130am, ty per email Breast Center Comment on above: Teresa David, 07/27/24, 1130am, ty per email Start: 07-26-2024 End: 07-26-2024 ambulatory 07/26/2024 8:45 AM EST Results Only [facility] [address] [place] [address] [place] [address] Iron deficiency anemia, unspecified iron deficiency anemia type [D50.9] [facility] Comment on above: Iron deficiency anemia, unspecified iron deficiency anemia type [D50.9] Start: 07-25-2024 End: 07-25-2024 Patient encounter procedure 07/25/2024 3:00 PM EST Office Visit Family Medicine [address] [place] [address] [place] [address] [place] [address] H f/u Family Medicine Comment on above: H f/u Start: 07-25-2024 End: 10-24-2024 CBC W Auto Differential panel - Blood COMPLETE BLOOD COUNT AND DIFFERENTIAL Lab Routine Iron deficiency anemia, unspecified iron deficiency anemia type Expected: 07/25/2024, Expires: 10/24/2024 [facility] Comment on above: Expected: 07/25/2024, Expires: Start: 07-25-2024 End: 10-24-2024 Ferritin [Mass/volume] in Serum or Plasma FERRITIN Lab Routine Iron deficiency anemia, unspecified iron deficiency anemia type Expected: 07/25/2024, Expires: 10/24/2024 [facility] Work Phone: Comment on above: Expected: 07/25/2024, Expires: Start: 07-25-2024 End: 10-24-2024 Iron and Iron binding capacity panel - Serum or Plasma IRON AND TIBC Lab Routine Iron deficiency anemia, unspecified iron deficiency anemia type Expected: 07/25/2024, Expires: 10/24/2024 [facility] Comment on above: Expected: 07/25/2024, Expires: Start: 07-11-2024 End: 07-11-2024 Patient encounter procedure 07/11/2024 8:30 AM EDT Appointment Mammography [id number] [place] [address] lt breast us core bx Mammography Comment on above: lt breast us core bx Start: 07-04-2024 End: 07-04-2024 Patient encounter procedure [facility] Comment on above: 11:30A IMAGING; Breast lump with pain x 1 yr; imaging done at [facility](pt hand caring images); Bx recommended by PCP; blood nipple discharge- spontaneous- last noticed 8 months ago Breast lump with suraj n x 1 yr; imaging done at [facility](pt hand caring images); Bx recommended by PCP; blood nipple discharge- spontaneous- last noticed 8 months ago Start: 07-01-2024 End: 09-30-2024 25-hydroxyvitamin D3 [Mass/volume] in Serum or Plasma VITAMIN D 25 HYDROXY Lab Routine Serum calcium elevated Expected: 07/01/2024, Expires: 09/30/2024 [facility] Comment on above: Expected: 07/01/2024, Expires: Start: 07-01-2024 End: 09-30-2024 Comprehensive metabolic 2000 panel - Serum or Plasma COMPREHENSIVE METABOLIC PANEL Lab Routine Serum calcium elevated Expected: 07/01/2024, Expires: 09/30/2024 [facility] Comment on above: Expected: 07/01/2024, Expires: Start: 07-01-2024 End: 09-30-2024 Parathyrin.intact [Mass/volume] in Serum or Plasma PTH INTACT Lab Routine Serum calcium elevated Expected: 07/01/2024, Expires: 09/30/2024 [facility] Comment on above: Expected: 07/01/2024, Expires: Start: 07-01-2024 End: 07-01-2024 Patient encounter procedure 07/01/2024 11:00 AM EDT Office Visit Family Medicine [address] [place] [address] [place] [address] [place] [address] est care. Updated PCP per navigation rules. Family Medicine Comment on above: est care. Updated PCP per navigation rul es. Start: 05-31-2024 End: 05-31-2024 Patient encounter procedure 05/31/2024 11:00 AM EDT Office Visit Family Medicine [address] [place] [address] Lisha Bianchi, GROUP ACCOUNT DIRECTOR.TRAFFIC CHIEF [address] [place] [address] ED follow up Family Medicine Comment on above: ED follow up Start: 05-24-2024 End: 05-24-2024 Patient encounter procedure 05/24/2024 11:15 AM EDT Office Visit Endocrinology [address] [place] [phone] Austin Leon, GROUP ACCOUNT DIRECTOR.TRAFFIC CHIEF [address] [place] [address] Class 1 obesity due to excess calories without serious comorbidity with body ma Endocrinology Comment on above: Class 1 obesity due to excess calories w ithout serious comorbidity with body ma Start: 05-15-2024 COVID-19 Vaccine ( season) COVID-19 Vaccine ( season) [facility] Start: 05-15-2024 COVID-19 Vaccine ( season) COVID-19 Vaccine () [facility] Start: 05-15-2024 Influenza vaccination [facility] Start: 03-01-2024 End: 03-01-2024 Patient encounter procedure 03/01/2024 11:20 AM EDT Appointment Radiology [address] [place] [address] MRI Panc/[facility] Comment on above: MRI Panc/Tanmay [facility] Start: 01-06-2024 End: 01-06-2024 ambulatory 01/06/2024 8:30 AM EDT Results Only [facility] [address] [place] [address] [place] [address] [facility] Start: 01-04-2024 End: 04-04-2024 CBC panel - Blood by Automated count COMPLETE BLOOD COUNT Lab Routine Routine health maintenance Expected: 01/04/2024, Expires: 04/04/2024 [facility] Work Phone: Comment on above: Expected: 01/04/2024, Expires: Start: 01-04-2024 End: 04-04-2024 Comprehensive metabolic 2000 panel - Serum or Plasma COMPREHENSIVE METABOLIC PANEL Lab Routine Routine health maintenance Expected: 01/04/2024, Expires: 04/04/2024 [facility] Comment on above: Expected: 01/04/2024, Expires: Start: 01-04-2024 End: 04-04-2024 Hemoglobin A1c in Blood HEMOGLOBIN A1C Lab Routine Routine health maintenance Expected: 01/04/2024, Expires: 04/04/2024 [facility] Comment on above: Expected: 01/04/2024, Expires: Start: 01-04-2024 End: 04-04-2024 Hepatitis C virus Ab [Presence] in Serum HEPATITIS C ANTIBODY IA WITH CONFIRMATION Lab Routine Routine health maintenance Expected: 01/04/2024, Expires: 04/04/2024 [facility] Comment on above: Expected: 01/04/2024, Expires: Start: 01-04-2024 End: 04-04-2024 HIV 1+2 Ab [Presence] in Serum or Plasma by Immunoassay HIV 1/2 COMBO WITH REFLEX TO DIFFERENTIATION Lab Routine Routine health maintenance Expected: 01/04/2024, Expires: 04/04/2024 [facility] Comment on above: Expected: 01/04/2024, Expires: Start: 01-04-2024 End: 04-04-2024 Lipid 1996 panel - Serum or Plasma LIPID PANEL BASIC Lab Routine Routine health maintenance Expected: 01/04/2024, Expires: 04/04/2024 [facility] Comment on above: Expected: 01/04/2024, Expires: Start: 12-10-2023 [facility] Start: 09-18-2023 End: 09-18-2023 Egd transoral biopsy single/multiple EGD BIOPSY Gastroesophageal reflux disease, unspecified whether esophagitis present Obesity (BMI 30-39.9) 09/18/2023 8:14 AM EST [facility] Start: 05-15-2023 COVID-19 Vaccine ( season) COVID-19 Vaccine () [facility] Start: 05-15-2023 Influenza vaccination Influenza Vaccine (#1) [facility] Start: 04-14-2023 Influenza vaccination Flu vaccine (#1) [facility] Start: 08-19-2022 Cerebrospinal fluid culture [facility] Start: 08-19-2022 End: 08-19-2022 [facility] Start: 08-12-2022 [facility] Start: 08-12-2022 Glucose [Mass/volume] in Cerebral spinal fluid [facility] Start: 08-12-2022 Protein [Mass/volume] in Cerebral spinal fluid [facility] Start: 08-12-2022 [facility] Start: 08-11-2022 Hospital admission [facility] Start: 08-11-2022 Referral to neurologist [facility] Start: 08-11-2022 [facility] Start: 05-15-2022 Influenza vaccination [facility] Start: 09-29-2021 COVID-19 VACCINE (3 - Booster for Pfizer series) COVID-19 VACCINE (3 - Booster for Pfizer series) [facility] Start: 09-14-2021 DEPRESSION ASSESSMENT DEPRESSION ASSESSMENT [facility] Start: 06-24-2021 COVID-19 VACCINE (3 - Booster for Pfizer series) COVID-19 VACCINE (3 - Booster for Pfizer series) [facility] Start: 06-24-2021 Covid-19 Vaccine (3 - Pfizer series) Covid-19 Vaccine (3 - Pfizer series) [facility] Start: 03-06-2021 End: 03-06-2021 Patient encounter procedure 03/06/2021 Office Visit BariatricGamaliel Robledo DO [address] [facility] [address] [place] [address] [facility] Start: 02-20-2021 End: 02-20-2021 Patient encounter procedure 02/20/2021 Office Visit Gamaliel Mistry DO [address] [facility] [address] [place] [phone] [facility] Start: 01-18-2021 End: 01-18-2021 Office Visit 01/18/2021 Office Visit Bariatrics Gamaliel Vickers, DO [address] [facility] [address] [place] [phone] Cyndie [facility] In[facility] Start: 01-07-2021 End: 01-07-2021 Hospital Encounter [facility] Comment on above: XI LAPAROSCOPIC ROBOTIC GASTRIC BYPASS R OUX-EN-Y, LIVER BIOPSY, EGD- GI UNIT SCHEDULED. Start: 01-03-2021 End: 01-03-2021 Office Visit Cyndie [facility] Invasive [facility] Comment on above: Arrived Start: 12-31-2020 End: 12-31-2021 COVID-19 COVID-19 Lab Routine Preop testing Expected: 12/31/2020, Expires: 12/31/2021 [facility] Work Phone: Comment on above: Expected: 12/31/2020, Expires: Start: 11-21-2020 End: 11-21-2020 Office Visit 11/21/2020 Office Visit Bariatrics Ganesh Cordero, GROUP ACCOUNT DIRECTOR - TRAFFIC CHIEF [address] [facility] [address] [place] [phone] [facility] Start: 11-01-2020 End: 11-01-2020 Appointment 11/01/2020 Appointment Radiology Radiologist, Chaitanya Jett [facility] Start: 10-24-2020 End: 10-24-2020 Office Visit [facility] Start: 09-26-2020 Annual Wellness Visit (AWV) Annual Wellness Visit (AWV) [facility]- [place], [place] Start: 2018 HPV TESTING HPV TESTING [facility] Start: 2018 Screening for malignant neoplasm of cervix [facility] Start: 06-10-2016 Screening for malignant neoplasm of cervix [facility] Start: 2010 DTaP/Tdap/Td Vaccines (1 - Tdap) DTaP/Tdap/Td Vaccines (1 - Tdap) [facility] Start: 2009 PAP TESTING PAP TESTING [facility] Start: 2009 Screening for malignant neoplasm of cervix [facility] Start: 12-18-2007 DTaP/Tdap/Td vaccine (1 - Tdap) DTaP/Tdap/Td vaccine (1 - Tdap) [facility] Start: 12-18-2007 Pneumococcal vaccination Pneumococcal Vaccine (1 of 2 - PCV) [facility] Start: 12-18-2007 Pneumococcal Vaccine: Pediatrics and At-Risk Adult Patients (1 of 2 - PCV) Pneumococcal Vaccine: Pediatrics and At-Risk Adult Patients (1 of 2 - PCV) [facility] Start: 12-18-2007 Urine microalbumin profile [facility] Start: 2006 ANNUAL PCP TEAM CHRONIC DISEASE VISIT ANNUAL PCP TEAM CHRONIC DISEASE VISIT [facility] Start: 2006 BP CONTROLLED (<130/80) BP CONTROLLED (<130/80) [facility] Start: 2006 HEPATITIS C SCREENING HEPATITIS C SCREENING [facility] Start: 2006 Hepatitis C screening [facility] Start: 2006 HIV SCREENING HIV SCREENING [facility] Start: 2006 HIV screening HIV Screening [facility] Start: 2004 COVID-19 Vaccine (1) COVID-19 Vaccine (1) [facility] Phone: Start: 12-18-2003 HIV screening HIV screen [facility] Start: 2001 Varicella vaccination Varicella Vaccines (1 of 2 - 13+ 2-dose series) [facility] Start: 2000 Adult depression screening assessment DEPRESSION SCREENING [facility] Start: 2000 COVID-19 Vaccine (1) COVID-19 Vaccine (1) [facility] Phone: Start: 2000 [facility] Start: 12-10-2000 Hepatitis B Vaccine (2 of 3 - 3-dose series) Hepatitis B Vaccine (2 of 3 - 3-dose series) [facility] Start: 12-10-2000 Hepatitis B Vaccines (2 of 3 - 3-dose series) Hepatitis B Vaccines (2 of 3 - 3-dose series) [facility] Start: 1994 PNEUMOCOCCAL (1 - PCV) PNEUMOCOCCAL (1 - PCV) [facility] ic Start: 1994 Pneumococcal 0-64 years Vaccine (1 - PCV) Pneumococcal 0-64 years Vaccine (1 - PCV) [facility] Start: 1994 Pneumococcal vaccination [facility] c Start: 1994 Pneumococcal Vaccine: Pediatrics (0 to 5 Years) and At-Risk Patients (6 to 64 Years) (1 of 2 - PCV) Pneumococcal Vaccine: Pediatrics (0 to 5 Years) and At-Risk Patients (6 to 64 Years) (1 of 2 - PCV) [facility] Start: 1989 Varicella vaccine (1 of 2 - 2-dose childhood series) Varicella vaccine (1 of 2 - 2-dose childhood series) [facility] Start: 1988 HEPATITIS B (1 of 3 - 3-dose series) HEPATITIS B (1 of 3 - 3-dose series) [facility] Start: 1988 Hepatitis B Vaccine (1 of 3 - 3-dose series) Hepatitis B Vaccine (1 of 3 - 3-dose series) [facility] Start: 1988 Hepatitis C screening Hepatitis C screen [place], [place] Start: 1988 HIV screening HIV Screening [facility] Start: 1988 Lipid panel Lipid Panel [facility] Start: 1988 Medicare Annual Wellness Visit Medicare Annual Wellness Visit (AWV) [facility] 24 hour urine measurement [facility] Adenosine monophosphate.cyclic [Moles/volume] in Serum or Plasma [facility] Albumin [Mass/volume ] in Serum or Plasma [facility] Albumin/Globulin ratio [facility] Bacteria identified in Unspecified specimen by Aerobe culture [facility] Work Phone: Bacteria identified in Unspecified specimen by Anaerobe culture [facility] Work Phone: Basic Metabolic Pane l w/ Reflex to MG Basic Metabolic Panel w/ Reflex to MG Lab Routine Daily until discontinued starting 02/01/2021, 1 completed [facility] Phone: Comment on above: Daily until discontinued starting 2020, 1 completed Beta 2 glycoprotein 1 IgG Ab [Units/volume] in Serum [facility] Beta 2 glycoprotein 1 IgM Ab [Units/volume] in Serum [facility] End: 09-18-2023 Blood glucose - POCT Blood glucose - POCT Point of Care Testing Routine One Time for 1 Occurrences starting 09/18/2023 until 09/18/2023 [facility] [employer] Comment on above: One Time for 1 Occurrences starting 01/2024 until 09/18/2023 CANNABINOID CONF, UR CANNABINOID CONF, UR Lab Routine Panic disorder 01/04/2024 10:20 AM EDT [facility] Cardiolipin IgA Ab [Units/volume] in Serum by Immunoassay [facility] Cardiolipin IgG Ab [Units/volume] in Serum by Immunoassay [facility] Cardiolipin IgM Ab [Units/volume] in Serum by Immunoassay [facility] Cell count, cerebros kinga fluid [facility] Work Phone: Centromere protein B Ab [Units/volume] in Serum [facility] Cerebrospinal fluid examination [facility] Work Phone: Chromatin Ab [Units/volume] in Serum or Plasma [facility] Complement C3 [Mass/volume] in Serum or Plasma [facility] Complement C4 [Mass/volume] in Serum or Plasma [facility] Continuous pulse oximetry Pulse oximetry, continuous Respiratory Care Routine Every 4hr until discontinued starting 01/07/2021 [facility] Phone: Comment on above: Every 4hr until discontinued starting End: 10-26-2020 COVID-19 COVID-19 Lab Routine Preoperative testing 1 Occurrences starting 10/26/2020 until 10/26/2020 [facility] Phone: Comment on above: 1 Occurrences starting 10/26/2020 until 10/26/2020 COVID-19 [facility] Phone: End: 01-03-2021 COVID-19 COVID-19 Lab Routine Preop testing 1 Occurrences starting 01/03/2021 until 01/03/2021 [facility] Comment on above: 1 Occurrences starting 01/03/2021 until 01/03/2021 DBT Breast - bilater al diagnostic for implant LINDA DIAG W AV BILATERAL Radiology Routine Mass of upper outer quadrant of left breast 07/04/2024 11:59 AM EDT [facility] Work Phone: ECG COMPLETE ECG COMPLETE ECG Routine Chest pain, unspecified type Palpitations Ordered: 07/01/2024 [facility] Work Phone: Comment on above: Ordered: 07/01/2024 Electrophoresis: [id number] [facility] Electrophoresis: [id number] [facility] Electrophoresis: beta-globulin [facility] Electrophoresis: fiorella ma globulin [facility] Evaluation of cerebrospinal fluid [facility] Work Phone: Fluid sample volume measurement [facility] Work Phone: Globulin [Mass/volum e] in Serum [facility] Glucose [Mass/volume ] in Cerebral spinal fluid [facility] Work Phone: Histone IgG Ab [Units/volume] in Serum by Immunoassay [facility] Homogenous nuclear A b pattern [Titer] in Serum [facility] IgA [Mass/volume] in Serum or Plasma [facility] IgG [Mass/volume] in Serum or Plasma [facility] IgM [Mass/volume] in Serum or Plasma [facility] Immunofixation for Urine [facility] End: 09-18-2023 INITIATE PACU OXYGEN THERAPY PROTOCOL Initiate PACU Oxygen Therapy Protocol Respiratory Care Routine Continuous until discontinued starting 09/18/2023 [facility] Comment on above: Continuous until discontinued starting 0 09/18/2023 Es-1 extractable nuc lear Ab [Units/volume] in Serum [facility] Lupus anticoagulant [Interpretation] in Platelet poor plasma [facility] Measurement of monoc lonal protein concentration [facility] Meningitis+Encephali tis pathogens DNA and RNA panel - Cerebral spinal fluid by JOSÉ MIGUEL with non-probe detection [facility] Work Phone: Microscopic observat ion [Identifier] in Unspecified specimen by Gram stain [facility] Work Phone: End: 08-03-2025 MR Breast - bilateral WO and W contrast IV MRI BREAST WO/W IVCON BILATERAL Radiology Routine Mass of upper outer quadrant of left breast Fibrocystic breast changes of both breasts Mastodynia Inversion of left nipple Bloody discharge from left nipple Nipple discharge 1 Occurrences starting 07/04/2024 until 08/03/2025 [facility] Work Phone: Comment on above: 1 Occurrences starting 07/04/2024 until 08/03/2025 End: 04-07-2025 MR Breast - left WO and W contrast IV MRI BREAST BX WO/W IVCON LEFT Radiology Routine Mass of upper outer quadrant of left breast 1 Occurrences starting 03/08/2024 until 04/07/2025 [facility] Work Phone: Comment on above: 1 Occurrences starting 03/08/2024 until 04/07/2025 End: 12-20-2023 Mra head w/o & w/contrast material MRV BRAIN WO/W IVCON Radiology Routine Idiopathic intracranial hypertension 1 Occurrences starting 11/20/2022 until 12/20/2023 [facility] Work Phone: Comment on above: 1 Occurrences starting 11/20/2022 until 12/20/2023 Myoglobin [Mass/volu me] in Serum or Plasma [facility] Nebulizer therapy HHN Treatment Respiratory Care Routine TID until discontinued starting 01/07/2021 [facility] Work Phone: Comment on above: TID until discontinued starting 01/08/20 21 Nuclear Ab [Titer] i n Serum [facility] Nucleated cells [#/v olume] in Cerebral spinal fluid by Manual count [facility] Work Phone: Oxygen therapy [Mini mum Data Set] [facility] [place] [place] Comment on above: Daily until discontinued starting 2020 Daily until disconti nued starting 01/07/2021 Daily until disconti nued starting 01/31/2021 Oxygen therapy [[facility] Data Set] Initiate Oxygen Therapy Protocol Respiratory Care Routine As Needed until discontinued starting 09/18/2023 [employer] Work Phone: Comment on above: As Needed until discontinued starting Patient Education [facility] Work Phone: Patient referral [facility] Work Phone: Phase I & II - meter ed glucose Phase I & II - metered glucose Point of Care Testing Routine As Needed until discontinued starting 09/28/2020 [employer] Comment on above: As Needed until discontinued starting End: 09-28-2020 , urine POCT , urine POCT Point of Care Testing Routine One Time for 1 Occurrences starting 09/28/2020 until 09/28/2020 [employer] Comment on above: One Time for 1 Occurrences starting 09/14 until 09/28/2020 End: 09-18-2023 , urine POCT , urine POCT Point of Care Testing Routine One Time for 1 Occurrences starting 09/18/2023 until 09/18/2023 [employer] Comment on above: One Time for 1 Occurrences starting 01/2024 until 09/18/2023 Protein [Mass/volume ] in Cerebral spinal fluid [facility] Work Phone: Protein [Mass/volume ] in Serum or Plasma [facility] Protein [Mass/volume ] in Urine [facility] Reagin Ab [Presence] in Serum by RPR [facility] Red blood cell count [facility] Work Phone: Rheumatoid factor [Units/volume] in Serum or Plasma [facility] Serum immunofixation [facility] Sjogrens syndrome-A extractable nuclear Ab [Units/volume] in Serum [facility] Sjogrens syndrome-B extractable nuclear Ab [Units/volume] in Serum [facility] Helm extractable nu clear Ab [Units/volume] in Serum [facility] SPECIMEN VALIDITY, URINE SPECIME N VALIDITY, URINE Lab Routine Panic disorder 01/04/2024 10:20 AM EDT [facility] Spirometry panel Incentive pete metry Respiratory Care Routine Every 2hr while awake until discontinued starting 01/07/2021 [facility] Work Phone: Comment on above: Every 2hr while awake until discontinued starting 01/07/2021 Surgical Pathology Surgical Path ology Lab Routine Release Upon Ordering for 1 Occurrences starting 09/28/2020 [facility] [place] Comment on above: Release Upon Ordering for 1 Occurrences starting 09/28/2020 SURGICAL PATHOLOGY [facility] Work Phone: Comment on above: Release Upon Ordering for 1 Occurrences starting 07/11/2024, 1 completed Thrombin time [facility] US Breast - left limited US JORDYN ST LTD LEFT Radiology Routine Mass of upper outer quadrant of left breast 07/04/2024 12:[address] [facility] [facility] Immunizations Immunization Date Immunization Notes Care Provider [facility] 04-29-2021 SARS-CoV-2 (COVID-19 ) mRNA BNT-162b2 vax Aimee Walker [facility] 04-08-2021 SARS-CoV-2 (COVID-19 ) mRNA BNT-162b2 vax Aimee Walkre [facility] 07-23-2020 influenza virus vaccine, unspecified formulation Eileen Alvarez MD Work Phone: [facility] 07-09-2020 influenza nasal, unspecified formulation Elia Baires DO Work Phone: [facility] 07-09-2020 influenza virus vaccine, unspecified formulation Aimee Walker [facility] 07-09-2020 influenza, injectable, quadrivalent, preservative free Elia Baires DO Work Phone: [facility] 11-12-2000 hepatitis B vaccine, pediatric or pediatric/adolescent dosage Elia Baires DO Work Phone: [facility] 11-12-2000 measles, mumps and rubella virus vaccine Elia Baires DO Work Phone: [facility] NEGATED: Highlighted row has not occurred!07-21-2022 influenza virus vaccine, unspecified formulation Aimee Walker [facility] Payers Date Payer Category Payer Unknown [id number] 2024 Unknown 2023 Medicare (Managed Care) 1.2. [id number] 2023 Medicare [id number] 2021 Medicaid MEDICAID [facility] MEDICAID [id number] 2021-Present [phone] [address] [place] [address] Medicaid [id number] [id number] .[id number] 2021 Medicaid [id number]. [id number] .[id number] 2021 Medicare HUMANA MEDICARE HUMANA MEDICARE PPO [id number] 2021-Present [phone] [address] [address] [place] [address] PPO [id number] 1.2.840.863660.1.13.159.2.7 .3.786105.315 2020 Medicare [id number] 1.2.840.938384.1.13.239.2.7 .3.247820.315 2018 Medicare 1.2.840.493138. 1.13.159.2.7 .3.978156.315 2018 Medicare [id number] 1988 Unknown [id number] 2.16.840.1.874590.3.579.2.7 32 1988 Unknown [id number] 2.16.840.1.616475.3.579.2.1 77 1988 Unknown [id number] 2.16.840.1.654526.3.579.2.3 56 1988 Unknown [id number] 2.16.840.1.709014.3.579.2.5 93 1988 Unknown [id number] 2.16.840.1.083042.3.579.2.5 93 1988 Unknown [id number] 2.16.840.1.013539.3.579.2.5 93 1988 Unknown [id number] 2.16.840.1.816766.3.579.2.5 93 1988 Unknown [id number] 2.16.840.1.246682.3.579.2.5 93 1988 Unknown [id number] 2.16.840.1.942051.3.579.2.5 93 1988 Unknown [id number] 2.16.840.1.084290.3.579.2.5 93 1988 Unknown [id number] 2.16.840.1.393786.3.579.2.5 93 1988 Unknown [id number] 2.16.840.1.107523.3.579.2.5 93 1988 Unknown [id number] 2.16.840.1.341176.3.579.2.5 93 1988 Unknown [id number] 2.16.840.1.893838.3.579.2.5 93 1988 Unknown [id number] 2.16.840.1.102210.3.579.2.1 73 1988 Unknown [id number] 2.16.840.1.190227.3.579.2.1 73 1988 Unknown [id number] 2.16.840.1.629559.3.579.2.1 74 1988 Unknown [id number] 2.16.840.1.396553.3.579.2.1 74 1988 Unknown [id number] 2.16.840.1.101280.3.579.2.1 74 1988 Unknown [id number] 2.16.840.1.945334.3.579.2.7 27 1988 Unknown [id number] 2.16.840.1.226833.3.579.2.7 27 1988 Unknown [id number] 2.16.840.1.090641.3.579.2.7 27 1988 Unknown [id number] 2.16.840.1.880196.3.579.2.7 27 1988 Unknown [id number] 2.16.840.1.924107.3.579.2.7 27 1988 Unknown [id number] 2.16.840.1.809495.3.579.2.7 27 1988 Unknown [id number] 2.16.840.1.838987.3.579.2.1 246 1988 Unknown [id number] 2.16.840.1.045542.3.579.2.7 27 1988 Unknown [id number] 2.16.840.1.143269.3.579.2.7 27 1988 Unknown [id number] 2.16.840.1.517641.3.579.2.7 27 1988 Unknown [id number] 2.16.840.1.293542.3.579.2.7 27 1988 Unknown [id number] 2.16.840.1.380279.3.579.2.7 27 1988 Unknown [id number] 2.16.840.1.556821.3.579.2.1 259 1988 Unknown [id number] 2.16.840.1.971328.3.579.2.1 259 1988 Unknown [id number] 2.16.840.1.733228.3.579.2.1 75 1988 Unknown [id number] 2.16.840.1.304507.3.579.2.1 244 1988 Unknown [id number] 2.16.840.1.604103.3.579.2.7 27 1988 Unknown [id number] 2.16.840.1.169267.3.579.2.7 27 1988 Unknown [id number] 2.840.1.964351.3.579.2.7 27 1988 Unknown [id number] 2.16.840.1.524634.3.579.2.7 27 1988 Unknown [id number] 2.16840.1.750972.3.579.2.7 27 1988 Unknown [id number] 2.16.840.1.265740.3.579.2.7 27 1988 Unknown [id number] 2.16840.1.937152.3.579.2.7 27 1988 Unknown [id number] 2.16.840.1.979857.3.579.2.7 27 1988 Unknown [id number] 2.16.840.1.326786.3.579.2.7 27 1988 Unknown [id number] 2.16.840.1.218414.3.579.2.7 27 1988 Unknown [id number] 2.16840.1.135818.3.579.2.7 27 1988 Unknown [id number] 2.16.840.1.405787.3.579.2.7 27 1988 Unknown [id number] 2.16.840.1.002952.3.579.2.7 27 1988 Unknown [id number] 2.16.840.1.943833.3.579.2.7 27 1988 Unknown [id number] 2.16.840.1.137807.3.579.2.7 27 1988 Unknown [id number] 2.16.840.1.352681.3.579.2.7 27 1988 Unknown [id number] 2.16.840.1.061303.3.579.2.7 1988 Unknown [id number] 2.16.840.1.304021.3.579.2.7 1988 Unknown [id number] 2.16.840.1.887614.3.579.2.7 1988 Unknown [id number] 2.16.840.1.335453.3.579.2.7 27 1988 Unknown [id number] 2.16.840.1.138971.3.579.2.7 1988 Unknown [id number] 2.16.840.1.814790.3.579.2.7 1988 Unknown [id number] 2.16.840.1.352963.3.579.2.7 1988 Unknown [id number] 2.16.840.1.427501.3.579.2.7 1988 Unknown [id number] 2.16.840.1.010455.3.579.2.7 1959 Medicaid [id number] 1.2.840.984847.1.13.239.2.7 .3.998370.315 1959 Private Health Insurance [id number] 1959 Self-pay [id number] Private Health Insurance [employer] [facility] M [id number] Unknown [id number] 2.16.840.1.742126.3.579.2.5 31 Unknown [id number] 2.16.840.1.364595.3.579.2.5 31 Unknown [id number] 2.16.840.1.963311.3.579.2.5 31 Unknown [id number] 2.16.840.1.033879.3.579.2.5 31 Social History Date Type Detail Facility Start: 09-28-2020 End: 01-29-2022 Tobacco smoking status NHIS Former smoker [place] Start: 08-12-2022 End: 09-15-2024 History of tobacco use Current smoker [place] Start: 09-28-2020 End: 07-01-2024 Tobacco use and exposure Never used [place] Start: 09-28-2020 End: 07-25-2024 Alcohol intake Current drinker of alcohol (finding) [place] Start: 09-28-2020 End: 07-03-2022 History SDOH Alcohol Frequency 1 [place] Start: 09-28-2020 Alcohol Comment rare [place] Start: 1990 Sex Assigned At Not on file [place] Start: 12-16-2021 End: 09-13-2024 Exposure to SARS-CoV-2 (event) Not sure [place] End: 03-14-2020 History of tobacco use Cigarette Smoker [facility] Phone: Start: 09-28-2020 Alcohol Comment rare [facility] Phone: Start: 12-26-2021 End: 07-01-2024 Tobacco smoking status CAIS Smokes tobacco daily [facility] Start: 12-26-2021 End: 02-27-2023 Cigarettes smoked current (pack per day) - Reported 1 [facility] Start: 03-18-2010 History SDOH Alcohol Comment beer and wine once a month [facility] Start: 07-01-2021 End: 02-17-2025 Tobacco smoking status Heavy tobacco smoker (finding) [facility] Tobacco smoking status Never [facility] Start: 07-03-2022 End: 02-27-2023 Sex Assigned At Female [facility] Start: 1990 Sex Assigned At Female [facility] Start: 07-03-2022 History SDOH Alcohol Frequency 5 [facility] Start: 07-03-2022 History SDOH Alcohol Std Drinks 4 [facility] Start: 07-03-2022 History SDOH Social Connections Get Together 2 [facility] Start: 07-03-2022 History SDOH Social Connections Living 3 [facility] Do you belong to any clubs or organizations such as catholic groups, unions, fraternal or athletic groups, or school groups? No [facility] Are you now , , , , never or living with a partner? [facility] How often to you hav e a drink containing alcohol? 4 or more times a week [facility] How many standard dr inks containing alcohol do you have on a typical day? 7 to 9 [facility] How often do you hav e 6 or more drinks on 1 occasion? Daily or almost daily [facility] How hard is it for y ou to pay for the very basics like food, housing, medical care, and heating Not very hard [facility] Do you feel stress - tense, restless, nervous, or anxious, or unable to sleep at night because your mind is troubled all the time - these days [OSQ] To some extent [facility] (I/We) worried iqra er (my/our) food would run out before (I/we) got money to buy more. Sometimes true [facility] The food that (I/we) bought just didn't last, and (I/we) didn't have money to get more. Never true [facility] Start: 01-13-2022 Gender identity Identifies as female gender (finding) [facility] Start: 02-06-2022 Sexual orientation Heterosexual (finding) [facility] How often to you hav e a drink containing alcohol? Never [employer] Start: 12-10-2023 Tobacco smoking status NHIS Never smoked tobacco (finding) [facility] Do you feel stress - tense, restless, nervous, or anxious, or unable to sleep at night because your mind is troubled all the time - these days [OSQ] Only a little [facility] Start: 07-04-2024 Alcohol Comment 13 days sober- 07/04/2024 [facility] Start: 08-08-2024 Alcoholic beverage intake Lifetime non-drinker (finding) [facility] Work Phone: Start: 09-11-2024 Sexual orientation Choose not to disclose [facility] Work Phone: How many standard dr inks containing alcohol do you have on a typical day? 3 or 4 [facility] Start: 08-26-2013 End: 09-15-2024 Sex Female (finding) [facility] Sexual Orientation [facility] Medical Equipment Procedure Code Equipment Code Equipment Origin al Text Equipment Identifier Dates Breast Us Core B x Clip [id number] Start: 07-11-2024 Comment on above: Description: Ribbon clip Functional Status Date Assessment Result Facility 01-27-2025 Functional Status N/A [facility] 01-24-2025 Functional Status N/A [facility] 01-13-2025 Functional Status N/A [facility] 11-28-2024 Functional Status N/A [facility] 11-15-2024 Functional Status N/A [facility] 10-18-2024 Functional Status N/A [facility] 03-08-2024 Functional Status N/A [facility] 07-02-2023 Functional Status N/A [facility] 01-15-2023 Functional Status N/A [facility] 11-21-2022 Functional Status No [facility] 11-03-2022 Functional Status N/A [facility] 09-24-2022 Functional Status N/A [facility] 08-22-2022 Functional Status N/A [facility] 08-18-2022 Functional Status N/A [facility] 08-12-2022 Functional status Patient at Baseline [facility] Work Phone: 08-08-2022 Functional Status N/A [facility] 07-21-2022 Functional Status N/A [facility] 04-21-2022 Functional Status N/A [facility] 04-20-2022 Functional Status N/A [facility] 04-03-2022 Functional Status N/A [facility] Mental Status Date Assessment Result Facility 08-12-2022 Cognitive function Cognitive Sta tus Patient at Baseline [facility] Work Phone: Clinical Notes 12-24-2020 to 03-29-2025 Note Date & Type Note Facility 03-29-2025 Note Pulmonology Office/Shaneka umaña Note History of Present Illness Here for evaluation of her sleep issues. The patient reports that she has been having problems with little sleep with occasional times of sleeping all day long. She reports that she typically goes to bed around 12 midnight as she usually works until 11 PM. She usually wakes up no later than 6 AM with a typical total sleep time of around 5 hours. Her does not report that she snores at night but did notice that she stops breathing while she is asleep. The patient herself reports that her sleep is quite disrupted and occasionally wakes herself up feeling choked and gasping. Her sleep monitor also reported that she has been having low oxygen while she is asleep as well. Her weight has been relatively stable. She has significant fatigue and daytime sleepiness. She has underlying bipolar disorder and is on multiple medications for that. She is also on gabapentin recently for back pain. Review of Systems Constitutional: no fever, no chills, no sweats, no weakness Skin: no Jaundice, no rash, no lesions, no petechiae ENT: no ear pain, no sore throat, no congestion, no hoarseness Respiratory: Denies shortness of breath, cough or wheezing Cardiovascular: no chest pain, no palpitations, no edema Gastrointestinal: no nausea, no vomiting, no diarrhea, no GI bleeding Genitourinary: no dysuria, no hematuria, no discharge, no pain Musculoskeletal: no back pain, no trauma Neurologic: no headache, no dizziness, no numbness, no weakness Psychiatric: no irritability, no mood swings/depression. Heme/Lymph: no [...] or noncontributory. Physical Exam Vitals & Measurements HR: 73(Peripheral) BP: 128/88 SpO2: 99% HT: 171 cm WT: 89.2 kg BMI: 30.51 General: Awake, alert, in no acute distress Skin: warm, dry Head: no trauma, normocephalic. Prolonged soft palate Neck: Trachea midline, no adenopathy, no tenderness Eye: normal conjunctiva, sclera clear ENMT: TM's clear, oral mucosa moist, no pharyngeal erythema or exudate Cardiovascular: regular rate and rhythm, normal peripheral perfusion Respiratory: Good breath sounds to both lung bee without wheezing or crackles. Gastrointestinal: soft, non distended, no tenderness, no guarding. Back: No tenderness, Normal ROM, Normal alignment. Extremities: no deformity, no trauma Neurological: oriented x 4, LOC appropriate for age, CN II-XII intact, motor strength equal & normal bilaterally, sensation equal & normal bilaterally, speech normal Psychiatric: cooperative, affect appropriate for age, normal judgement, normal psychiatric thoughts. Assessment/Plan 1. AIDEN (obstructive sleep apnea) (G47.33: Obstructive sleep apnea (adult) (pediatric)) Highly likely given the patient's symptoms, physical examination and risk factors. The etiology of obstructive sleep apnea and methods of diagnoses and treatment were discussed with the patient in details. She is also on a lot of medications that can cause daytime sleepiness and also has insufficient total sleep time. I discussed with the patient importance of increasing her total sleep time to 7 to 8 hours a night. The patient is agreeable to testing and treatment if clinically indicated. I will arrange for sleep study and see her back after her testing is completed. She will call me back in the meantime if any issues. Ordered: Sleep Study Baseline Follow-up With When Contact Information Sami Brewster MD, PUL, [facility] [address] [facility] [place] [address]- Additional Instructions: after his testing is completed Problem List/Past Medical History Ongoing Alcohol abuse, uncomplicated Bipolar disorder BMI 31.0-31.9,adult Borderline personality disorder Chronic pain syndrome History of bypass of stomach Hypertension Iron deficiency anemia Left breast mass Muscle weakness-general Obesity (BMI 30-39.9) AIDEN (obstructive sleep apnea) Overweight (BMI 25.0-29.9) Pancreatic mass Smoker Vitamin D deficiency Historical Alcohol abuse Procedure/Surgical History Injection of facet joint using fluoroscopic guidance (03/03/2025), Injection of facet joint using fluoroscopic guidance (01/24/2025), Injection of nerve root of lumbar spine using fluoroscopic guidance (11/28/2024), Biopsy, breast, with placement of breast localization device(s) (eg, clip, metallic pellet), when performed, and imaging of the biopsy specimen, when performed, percutaneous; first lesion, including ultrasound guidance (07/11/2024), Hysterectomy (12/05/2022), Endoscopic plantar fasciotomy (02/16/20 (more content not included)... [facility] Comment on above: Result Comment: Elec tronically Signed By: Sami Brewster MD\.br\Date and Time Signed: 03/29/25 11:39 EDT 03-09-2025 Evaluation + Plan note Extrac caitlin [...] Rest/Stress-Res Appointment Date:03/13/2025 12:30:00 PM Scheduled Provider: Location[facility] Appointment Type:NM Myocard Spect Multi Rest/Stress - R Appointment Date:03/13/2025 01:00:00 PM Scheduled Provider: Location[facility] Appointment Type:NM Myocard Spect Multi Rest/Stress-Str Appointment Date:03/13/2025 02:00:00 PM Scheduled Provider: Location[facility] Appointment Type:NM Myocar Spect Multi Rest/Stress - St Appointment Date:03/16/2025 02:30:00 PM Scheduled Provider:Jak Peace MD Location[facility] Appointment Type:Cardiology Follow Up (FT) Future Scheduled Tests Radiology* NM Myocardial Spect Rest/Stress 1 Day 03/13/25 [facility] 06-26-2025 NoteConsultation Note Patient is presenting with [...] call with any questions or concerns that arise[facility]Result Comment: Electronically Signed By: Babar Mayers DO\Date and Time Signed: 03/09/25 13:04 EDT 03-03-2025 [...] The patient agrees to continue currently prescribed/recommended therapies[facility] Result Comment: Electronically Signed By: Babar Mayers DO\Date and Time Signed: 03/03/25 08:46 [id number] Hospital Discharge instructions Patient Education 02/17/2025 21:08:51 [...] Follow these instructions at home: Medicines Take xwtp-cnj-rrhieaz and prescription medicines only as told by [...] provider. Document Revised: 01/09/2022 Document Reviewed: 01/09/2022 [employer] Patient Education 2023 [employer]. 02/17/2025 21:08:51 Acute Bronchitis, Adult Acute Bronchitis, [...] condition. Follow these instructions at home: Take nzxz-ipo-erbgknm and prescription medicines only as told by [...] and water are not available, use hand graduate teacher education. Avoid contact with people who have cold [...] it is easier to cough up. Take mlum-aym-vwkhhyg and prescription medicines only as told by [...] provider. Document Revised: 12/11/2022 Document Reviewed: 01/01/2022 [employer] Patient Education 2023 [employer]. Follow Up Care 02/17/2025 18:54:28 With:Jennie Durand Address: [address] [place] [address]- Business (1) When:02/20/2025 20:12:05 [facility] 06-06-2025 NoteED Patient Education Note Neurology Near-Syncope [...] these instructions at home: Medicines ??? Take ducy-fvq-tjsncsg and prescription medicines only as told by [...] provider. Document Revised: 01/09/2022 Document Reviewed: 01/09/2022 [employer] Patient Education ? 2023 [employer] Pulmonary Medicine Acute Bronchitis, Adult Acute bronchitis [...] the common cold. ??? (more content not included)...[facility]06-02-2025 Telephone encounter Note* Telephone Encounter - Tevin Carson DO - 02/13/2025 8:56 AM EDT Needs follow-up Tevin Carson DO [facility]06-02-2025 Miscellaneous Notes* Telephone Encounter - Tevin Carson [...] advise. Madeline Teixeira MA [facility] Telephone encounter Note * Telephone Encounter - Madeline Teixeira MA - 02/11/2025 10:13 AM EDT Last OV 07/25/2024 ..Pharmacy escripts requesting the following refill: Requested Prescriptions Pending Prescriptions Disp Refills lamoTRIgine (LAMICTAL) 25 mg tablet [Pharmacy Med Name: LAMOTRIGINE 25 MG TABLET] 360 tablet 0 Sig: TAKE 2 TABLETS BY MOUTH TWICE A DAY Please review and advise. Madeilne Teixeira MA [facility]05-30-2025 NoteEchocardiology Procedure Exam Date/Time Accession # Ordering Echo Transthoracic 02/09/2025 11:26 EDT [id number] MOLLY WAGNER CNP Complete CPT code [id number] [id number] Reason for Exam (Echo Transthoracic Complete) Palpitations R00.2 Report [facility] [address] [place] [address] Adult Echocardiogram Report Name: SHAZIA CHOU Study Date: 02/09/2025 10:52 AM BP: 135/99 mmHg Patient Location: [facility] Ambulatory(s) [facility] HR: 65 : 1990 Gender: Female Height: 67 in Age: 34 yrs Ethnicity: T Weight: 205 lb Reason For Study: Palpitations R00.2 BSA: 2.0 m2 History: HTN,Smoker-Yes Ordering Physician: BERNARD^MOLLY Referring Physician: MOLLY WAGNER Performed By: Candis Matthews RDMS, RVT Interpretation Summary The left ventricle is [...] P.7 mmHg RVSP(TR): 32.7 mmHg Measurements from [employer]LAB ED Mass (HM): 133.0 grams LAEF (HM): 62.0 % BSA (HM): 2.0 m2 CI (HM): 2.8 l/min/m2 MINESH (HM): 25.0 ml/m2 LAVmax (HM): 50.0 ml LAVmin (HM): 19.0 ml Pat Height (HM): 170.0 cm Pat Weight (HM): 93.0 kg FINAL REPORT Dictated: 02/09/2025 10:52 am Fernandez Daniels MD Signed (Electronic Signature): 02/10/2025 11:27 am Signed by: Fernandez Daniels MD Transcribed by: [place] Technologist: [facility]05-16-2025 Evaluation + Plan noteExtracted from: Title:Pain Managment [...] training to prevent future risk of falling. [facility] 05-16-2025 NoteConsultation Note Patient: SHAZIA CHOU Age: [...] TID, # 90 tab(s), Refills(s) 2, Pharmacy: [facility]/pharmacy #[id number], 170, cm, 01/13/25 8:29:00 EDT, Height/Length Dosing, [...] All Problems Bipolar disorder / SNOMED CT 85193939 / Confirmed Pancreatic mass / SNOMED CT 3124988933 / Confirmed Smoker / SNOMED CT 767630892 / Confirmed Added secondary to documentation in Social History. Borderline personality disorder / SNOMED CT 14657930 / Confirmed History of bypass of stomach / SNOMED CT 2254322415 / Confirmed Vitamin D deficiency / SNOMED CT 14118712 / Confirmed Left breast mass / SNOMED CT 699290950 / Confirmed Hypertension / SNOMED CT 9713525640 / Confirmed Overweight (BMI 25.0-29.9) / SNOMED CT 6415943003 / Confirmed Muscle weakness-general / SNOMED CT 50288393 / Confirmed Chronic pain syndrome / SNOMED CT 5893386231 / Confirmed Iron deficiency anemia / SNOMED CT 241110819 / Confirmed noted in 09/16/2024 [facility] Records page 5. added per OP CDI policy. Alcohol abuse, uncomplicated / SNOMED CT 37361278 / Confirmed BMI 31.0-31.9,adult / SNOMED CT 743048163 / Confirmed Obesity (BMI 30-39.9) / SNOMED CT 386043361 / Confirmed Resolved: / SNOMED CT 692509886 Resolved: / SNOMED CT 032640637 Resolved: / SNOMED CT 735410353 Resolved: Alcohol abuse / SNOMED CT 04427731 Canceled: Anxiety and depression / SNOMED CT 11487757 Canceled: Plantar fasciitis of left foot / SNOMED CT 911528178 Canceled: Intracranial hypertension / SNOMED CT 118477245 Canceled: Smoker / SNOMED CT [id number] Added secondary to documentation in Social History. Canceled: Class 1 obesity with body mass index (BMI) of 32.0 to 32.9 in adult / SNOMED CT 2915639789 Canceled: Anxiety / SNOMED CT 14239687 Canceled: Depression / SNOMED CT 72476156 Canceled: Borderline personality disorder / SNOMED CT 43840041 Canceled: Class 1 obesity with body mass index (BMI) of 30.0 to 30.9 in adult / SNOMED CT 2175062063 Canceled: Former smoker / SNOMED CT 89181921 Canceled: Grief reaction / SNOMED CT 504754724 Canceled: Overweight with body mass index (BMI) of 29 to 29.9 in adult / SNOMED CT 4830550958 Canceled: Disorder of oral soft tissue / SNOMED CT 3312024114 Canceled: Intentional benzodiazepine overdose / SNOMED CT 6580639118 Canceled: Omental infarction / SNOMED CT 290504571 Canceled: Axillary (more content not included)...[facility] Comment on above:Result Comment: Electronically Signed By: Orlando Kate PA-C\.benito\Date and Time Signed: 01/27/25 10:38 [id number] NoteOperative Report Diagnosis: m47.816, lumbar spondyloarthropathy Procedure: [...] The patient agrees to continue currently prescribed/recommended therapies.[facility] Result Comment: Electronically Signed By: Babar Mayers DO\Date and Time Signed: 01/24/25 09:58 [id number] Evaluation + Plan noteExtracted from: Title:Pain Managment [...] treatments including physical therapy in the past, yewm-gqq-eywghxt anti-inflammatory medications and the recent injection helped [...] Appointments Appointment Date:01/19/2025 09:15:00 AM Scheduled Provider: Location:[facility] [place] Appointment Type:PT Julieta () [facility] 05-02-2025 NoteConsultation Note Patient: SHAZIA CHOU Age: [...] been working full- time. 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 She states that it was miserable. At this time, she has back pain that she rates a 7/10 but it can get up to a 10/10 with walking, standing, being upright and active. She feels like the Lyrica did not help her so she went back to [facility]. She is using 600 mg usually only [...] BID, # 6 tab(s), Refills(s) 1, Pharmacy: [facility]/pharmacy #[id number], 162, cm, 08/08/22 9:11:00 EST, Height/Length Dosing, 83.1, kg, 08/08/22 9:11:00 EST, Weight Dosing pregabalin 50 mg Cap: 50 mg = 1 cap(s), Oral, BID, X 30 day(s), # 60 cap(s), Refills(s) 1, Pharmacy: [facility]/pharmacy #[id number], 170, cm, 11/15/24 13:59:00 EST, Height/Length [...] All Problems Bipolar disorder / SNOMED CT 59050823 / Confirmed Pancreatic mass / SNOMED CT 9825895803 / Confirmed Smoker / SNOMED CT 600508292 / Confirmed Added secondary to documentation in Social History. Borderline personality disorder / SNOMED CT 89045730 / Confirmed History of bypass of stomach / SNOMED CT 7501028330 / Confirmed Vitamin D deficiency / SNOMED CT 99263106 / Confirmed Left breast mass / SNOMED CT 956364882 / Confirmed Hypertension / SNOMED CT 5612905813 / Confirmed Overweight (BMI 25.0-29.9) / SNOMED CT 7235203983 / Confirmed Muscle weakness-general / SNOMED CT 82928636 / Confirmed Chronic pain syndrome / SNOMED CT 3929566289 / Confirmed Iron deficiency anemia / SNOMED CT 556738335 / Confirmed noted in 09/16/2024 [facility] Records page 5. added per OP CDI policy. Alcohol abuse, uncomplicated / SNOMED CT 57419673 / Confirmed BMI 31.0-31.9,adult / SNOMED CT 011622186 / Confirmed Obesity (BMI 30-39.9) / SNOMED CT 075545568 / Confirmed Resolved: / SNOMED CT 153317470 Resolved: / SNOMED CT 504079810 Resolved: / SNOMED CT 249561583 Resolved: Alcohol abuse / SNOMED CT 75932949 Canceled: Anxiety and depression / SNOMED CT 52992726 Canceled: Plantar fasciitis of left foot / SNOMED CT 038977269 Canceled: Intracranial hypertension / SNOMED CT 846056022 Canceled: Smoker / SNOMED CT [id number] Added secondary to documentation in Social History. Canceled: Class 1 obesity with body mass index (BMI) of 32.0 to 32.9 in adult / SNOMED CT 7587908045 Canceled: Anxiety / SNOMED CT 60580766 Canceled: Depression / SNOMED CT 30597066 Canceled: Borderline personality disorder / SNOMED CT 59362786 Canceled: Class 1 obesity with body mass index (BMI) of 30.0 to 30.9 in adult / SNOMED CT 2635579962 Canceled: Former smoker / SNOMED CT 80058892 Canceled: Grief reaction / SNOMED CT 872811892 Canceled: Overweight with body mass index (BMI) of 29 to 29.9 in adult / SNOMED CT 5062753759 Cance (more content not included)...[facility] HospitalComment on above: Result Comment: Electronically Signed By: Orlando Kate PA-C\.br\Date and Time Signed: 01/13/25 08:44 [id number] Evaluation + Plan noteExtracted from: Title:Bilateral lumbar [...] Date:01/27/2025 10:15:00 AM Scheduled Provider:Orlando Kate PA-C Location:[facility] Appointment Type:Pain Management - Follow Up (FT) [facility] 04-05-2025 Evaluation + Plan noteExtracted from: Title:Bilateral [...] Date:03/09/2025 12:30:00 PM Scheduled Provider:Babar Mayers DO Location[facility] Appointment Type:Pain Management - Follow Up (FT) Appointment Date:03/13/2025 11:30:00 AM Scheduled Provider: Location[facility] Appointment Type:NM Myocard Spect Multi Rest/Stress-Res Appointment Date:03/13/2025 12:30:00 PM Scheduled Provider: Location[facility] Appointment Type:NM Myocard Spect Multi Rest/Stress - R Appointment Date:03/13/2025 01:00:00 PM Scheduled Provider: Location[facility] Appointment Type:NM Myocard Spect Multi Rest/Stress-Str Appointment Date:03/13/2025 02:00:00 PM Scheduled Provider: Location[facility] Appointment Type:NM Myocar Spect Multi Rest/Stress - St Appointment Date:03/16/2025 02:30:00 PM Scheduled Provider:Jak Peace MD Location:[facility] Appointment Type:Cardiology Follow Up (FT) Future Scheduled Tests Radiology* NM Myocardial Spect Rest/Stress 1 Day 03/13/25 [facility] 03-17-2025 Evaluation + Plan noteExtracted from: Title:Left [...] Date:12/19/2024 10:15:00 AM Scheduled Provider:Orlando Kate PA-C Location:.[facility] Appointment Type:Pain Management - Follow Up (FT) Future Scheduled Tests Radiology* US Abdomen, Limited 11/29/24 [facility] 03-17-2025 NoteOperative Report Diagnosis: m54.16, lumbar radiculopathy [...] and agrees to comply to currently prescribed/recommended therapies.[facility] Comment on above:Result Comment: Electronically Signed By: Babar Mayers DO.benito\Date and Time Signed: 11/28/24 10:22 [id number] NoteConsultation Note Patient: SHAZIA CHOU Age: 33 [...] all conservative treatments first. She has taken cyim-mmw-qqnomab medication without any long-term relief. She states that her left leg pain affects her quality of life and affects her activities. 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 She is hopeful to be able to [...] All Problems Bipolar disorder / SNOMED CT 29989489 / Confirmed Pancreatic mass / SNOMED CT 4693213160 / Confirmed Smoker / SNOMED CT 786685212 / Confirmed Added secondary to documentation in Social History. Borderline personality disorder / SNOMED CT 03628755 / Confirmed History of bypass of stomach / SNOMED CT 8882709244 / Confirmed Vitamin D deficiency / SNOMED CT 25979372 / Confirmed Left breast mass / SNOMED CT 065892760 / Confirmed Hypertension / SNOMED CT 5213497026 / Confirmed Overweight (BMI 25.0-29.9) / SNOMED CT 1392464830 / Confirmed Muscle weakness-general / SNOMED CT 16938426 / Confirmed Chronic pain syndrome / SNOMED CT 9518036909 / Confirmed Iron deficiency anemia / SNOMED CT 648794864 / Confirmed noted in 09/16/2024 [facility] Records page 5. added per OP CDI policy. Alcohol abuse, uncomplicated / SNOMED CT 24882035 / Confirmed BMI 31.0-31.9,adult / SNOMED CT 896504651 / Confirmed Obesity (BMI 30-39.9) / SNOMED CT 916698359 / Confirmed Resolved: / SNOMED CT 131484437 Resolved: / SNOMED CT 303092498 Resolved: / SNOMED CT 204638120 Resolved: Alcohol abuse / SNOMED CT 77452509 Canceled: Anxiety and depression / SNOMED CT 52907316 Canceled: Plantar fasciitis of left foot / SNOMED CT 560368893 Canceled: Intracranial hypertension / SNOMED CT 668386568 Canceled: Smoker / SNOMED CT [id number] Added secondary to documentation in Social History. Canceled: Class 1 obesity with body mass index (BMI) of 32.0 to 32.9 in adult / SNOMED CT 7437597393 Canceled: Anxiety / SNOMED CT 95258423 Canceled: Depression / SNOMED CT 90088947 Canceled: Borderline personality disorder / SNOMED CT 68632046 Canceled: Class 1 obesity with body mass index (BMI) of 30.0 to 30.9 in adult / SNOMED CT 3074421801 Canceled: Former smoker / SNOMED CT 64611169 Canceled: Grief reaction / SNOMED CT 504964151 Canceled: Overweight with body mass index (BMI) of 29 to 29.9 in adult / SNOMED CT 4352674379 Canceled: Disorder of oral soft tissue / SNOMED CT 2231999199 Canceled: Intentional benzodiazepine overdose / SNOMED CT 2857155724 Canceled: Omental infarction / SNOMED CT 787397237 Canceled: Axillary lymphadenopathy / SNOMED CT 875048 Canceled: BMI 28.0-28.9,adult / SNOMED CT 5013971838 Canceled: Over weight / SNOMED CT 380854516 Canceled: Leukocytosis / SNOMED CT 416571790 Canceled: BMI 29.0-29.9,adult / SNOMED CT 0011669375 Canceled: Headache after spinal puncture / SNOMED CT 219624501 Canceled: Trapezius muscle spasm / SNOMED CT 6710737314 Canceled: Recovering alcoholic (more content not included)...[facility] HospitalComment on above:Result Comment: Electronically Signed By: Orlando Kate PA-C\.br\Date and Time Signed: 11/15/24 14:14 [id number] Evaluation + Plan noteExtracted from: Title:Pain Managment [...] clinic sooner if necessary. NOAH score: 42%. [facility] 02-04-2025 Evaluation + Plan noteExtracted from: Title:ED Note Author:Beto Shea PA-C te:10/18/24 Chronic pain (G89.29: Other chronic pain) Orders: ketorolac, 60 mg = 2 mL, Injection, IntraMuscular, Once PRN Pain, STAT, Start date 10/18/24 8:31:00 EST, 10/18/24 8:31:00 EST methocarbamol, 1,500 mg = 2 tab(s), Oral, TID, X 3 day(s), # 18 tab(s), Refills(s) 0, [id number] 170, cm, 10/18/24 8:12:00 EST, Height/Length Dosing, 90, kg, 10/18/24 8:12:00 EST, Weight Dosing predniSONE, 60 mg = 3 tab(s), Oral, Daily, X 7 day(s), # 21 tab(s), Refills(s) 0, [id number] 170, cm, 10/18/24 8:12:00 EST, Height/Length Dosing, 90, kg, 10/18/24 8:12:00 EST, Weight Dosing Future Appointments Appointment Date:11/18/2024 08:00:00 AM Scheduled Provider:KURT BALBUENA CNP Location:[facility] Appointment Type:[facility] 02-04-2025 Hospital Discharge instructions Patient Education [...] your skin (aromatherapy). Other treatments may include: Xjst-bmm-utqgqic or prescription medicines. Color, light, or sound therapy. Local electrical stimulation. The electrical pulses help to relieve pain by temporarily stopping the nerve impulses that cause you to feel pain. Injections. These deliver numbing or pain-relieving medicines into the spine or the area of pain. Medicines Take ajio-oxq-etxehko and prescription medicines only as told by your health care provider. Ask your health care provider if the medicine prescribed to you: ?Requires you to avoid driving or using machinery. ?Can cause constipation. You may need to take these actions to prevent or treat constipation: ?Drink enough fluid to keep your urine pale yellow. ?Take cjya-gln-wfvmmoc or prescription medicines. ?Eat foods that are [...] the National Suicide Prevention Lifeline at or 740. This is open 24 hours a day. Text the Crisis Text Line at 190771. This information is not intended to replace advice given to you by your health care provider. Make sure you discuss any questions you have with your health care provider. Document Revised: 04/22/2023 Document Reviewed: 03/25/2023 [employer] Patient Education 2023 [employer]. Follow Up Care 10/18/2024 08:05:45 With:KURT BALBUENA Address: [address] [place], [place] [address] Business (1) When:10/21/2024 08:32:28 [facility] 02-04-2025 NoteED Patient Education Note Mental and [...] skin (aromatherapy). Other treatments may include: ??? Fwct-eyy-uczzwxe or prescription medicines. ??? Color, light, or sound therapy. ??? Local electrical stimulation. The electrical pulses help to relieve pain by temporarily stopping the nerve impulses that cause you to feel pain. ??? Injections. These deliver numbing or pain-relieving medicines into the spine or the area of pain. Medicines ??? Take ydgj-rlm-ovenprd and prescription medicines only as told by your health care provider. ??? Ask your health care provider if the medicine prescribed to you: ? Requires you to avoid driving or using machinery. ? Can cause constipation. You may need to take these actions to prevent or treat constipation: ? Drink enough fluid to keep your urine pale yellow. ? Take xhme-bey-yqlvjgu or prescription medicines. ? Eat foods that [...] the National Suicide Prevention Lifeline at or 845. This is open 24 hours aday. ??? Text the Crisis Text Line at 415077. This information is not intended to replace advice given to you by your health care provider. Make sure you discuss any questions you have with your health care provider. Document Revised: 04/22/2023 Document Reviewed: 03/25/2023 Elsevier Patient Education ? 2023 [employer] 10-17-2024 NoteHNO ID: [id number] Author: MELISSA GOLD MA Service: ? Author Type: Measurement Supervisor Type: Progress Notes Filed: 10/17/2024 12:28 Note Text: POPULATION HEALTH NAVIGATION OUTREACH Action/FYI Topic Due [...] or unnecessary to reach patient: Left message [employer] message sent HCC related Navigation Signature: Melissa Gold MA October 17, 2024 12:23 [facility]02-03-2025 History of Present illness Narrative* Melissa [...] or unnecessary to reach patient: Left message [employer] message sent HCC related Navigation Signature: Melissa Gold MA October 17, 2024 12:23 PM documented in this encounterSumma Health02-03-2025 NotePatient Outreach (NETNAV) SHAZIA CHOU ([id number]) 1990 F Date Time Provider Department 10/17/24 [...] or unnecessary to reach patient: Left message [employer] message sent HCC related Navigation Signature: Melissa [...] Visit: Population Health Navigation Outreach [3910] Cmt: Mauricio Phan Prescriptions as of 10/17/2024 - lamoTRIgine (LAMICTAL) [...] mg by mouth daily at bedtime. - sgbkfaxaeqhv-mqe-sohf-FA-vit K (BARIATRIC MULTIVITAMINS) 45 mg iron- 800 [...] 03/08/2024 Encounter Status:Closed by MELISSA GOLD on 10/17/24[facility]01-31-2025 NotePatient Education Mental and Behavioral Health Binge-Drinking [...] plan to use machinery, such as a cloth doubling machine operator or power tool. ? You have a [...] National Drug and Alcohol Treatment Referral Service: 9-520-534-HELP (1130) ??? Alcoholics Anonymous, Alcoholics Resource Center: ??? Substance Abuse and Mental Health Services Administration: sama.gov Where to find more information: ??? Centers for Disease Control and Prevention: cdc.gov ??? National Keiser on Alcohol Abuse and Alcoholism: niaaa.nih.gov/alcohol Contact [...] the National Suicide Prevention Lifeline at or 662. This is open 24 hours aday. ??? Text the Crisis Text Line at 211237. Summary ??? Binge-drinking refers to drinking a large amount of alcohol in a short time. This is usually 5 drinks for men or 4 drinks for women, on one occasion. ??? Binge-drinking can lead to serious health problems, such as heart dise (more content not included)...[facility]01-17-2025 NotePatient Education Mental and Behavioral Health Chronic [...] skin (aromatherapy). Other treatments may include: ??? Lxki-toj-unnooud or prescription medicines. ??? Color, light, or sound therapy. ??? Local electrical stimulation. The electrical pulses help to relieve pain by temporarily stopping the nerve impulses that cause you to feel pain. ??? Injections. These deliver numbing or pain-relieving medicines into the spine or the area of pain. Medicines ??? Take qtkj-enc-txcnmjc and prescription medicines only as told by your health care provider. ??? Ask your health care provider if the medicine prescribed to you: ? Requires you to avoid driving or using machinery. ? Can cause constipation. You may need to take these actions to prevent or treat constipation: ? Drink enough fluid to keep your urine pale yellow. ? Take arjv-cpx-iduduea or prescription medicines. ? Eat foods that [...] the National Suicide Prevention Lifeline at or 251. This is open 24 hours aday. ??? Text the Crisis Text Line at 085216. This information is not intended to replace advice given to you by your health care provider. Make sure you discuss any questions you have with your health care provider. Document Revised: 04/22/2023 Document Reviewed: 03/25/2023 ElsePowered Patient Education ? 2023 [employer].[facility] 09-27-2024 History of Present illness Narrative* Corby Larsen DO - 09/27/2024 2:00 PM EST Images from the original note were not included. Reason for Appointment: EMG Patient: Shazia Chou : 1990 EMG Computer: [employer] Referring Physician: Dr. Corby Larsen EMG: MILTON mount loader: Saúl DAWN(R) Office Location: [place] Reason for EMG: c/o weakness in bilateral [...] nature of the test. documented in this encounterParkland Health [id number] History of Present illness Narrative* Corby Larsen DO - 09/21/2024 11:30 AM EST Images from the original note were not included. Chief Complaint: muscle weakness and imbalance Subjective Shazia Chou, 33 y.o., female Patient presents today [...] typically knows very well. She works at [employer] and will forget what goes on pizzas [...] Medical History: Diagnosis Date Borderline personality disorder ([facility]) Depression ([facility]) GERD (gastroesophageal reflux disease) Numbness Ulnar neuropathy [...] , wrist extensors , wrist flexor , immunochemist strength 5/5. LUE Strength deltoid , biceps , triceps , wrist extensors , wrist flexor , immunochemist strength 5/5. RLE Strength illopsoas, quadriceps, tibialis [...] lower extremities on 07/09/23: Normal LP at [facility] on 08/19/22: Opening pressure of 23 cm of CSF, CSF testing was unremarkable MRI brain and MR venogram on 08/11/22 at [facility]: unremarkable. Assessment/Plan Diagnoses and all orders for this visit: Ataxia It is my impression that patient has abnormal rwrfme-yz-gmex testing and feels like she is walking [...] without contrast. We will do this at [facility] for comparison. Paresthesia Patient continues to complain [...] of mental health issues documented in this encounterParkland Health [id number] Evaluation + Plan note Diagnostic Tests Pending * Vitamin A Level 09/20/24 [facility] [id number] Radiology [facility] [place] [address] [place] [address] CT Scan Report Signed Patient: Shazia Chou MR#: [id number] : 1990 Acct:[id number] Age/Sex: 33 / F ADM Date: 5 Loc: ER Room: Type: [facility] ER Attending Dr: Copies to: Sailaja Anderson APRN~ Ordering Provider: Sailaja Anderson APRN Date of Service: 09/15/24 CT/CT angio head: weakness ([id number]) CT/CT angio neck: weakness ([id number]) CT/CT head/brain wo con: weakness CT head/brain [...] Wiley Shetty M.D.09/15/2024 3:56 PM Dictation Location: [place] [address] Transcribed By: [facility] 09/15/24 1557 Dictated By: Wiley Shetty II, MD 09/15/24 1546 Signed By: 09/15/24 3372 [facility] Work Phone: 1(881) 477-398001-02-2025 NotePatient Education Mental and Behavioral Health Myofascial [...] these instructions at home: Medicines ??? Take salw-vcj-icabynl and prescription medicines only as told by your health care provider. ??? Ask your health care provider if the medicine prescribed to you: ? Requires you to avoid driving or using machinery. ? Can cause constipation. You may need to take these actions to prevent or treat constipation: ? Drink enough fluid to keep your urine pale yellow. ? Take okvv-oue-yfftkci or prescription medicines. ? Eat foods that [...] ??? Do not use (more content not included)...[facility] 09-13-2024 Miscellaneous Notes* Result Encounter Note - Aleah Howard MD - 09/13/2024 9:45 AM EST Shazia your echocardiogram shows normal heart pump function and valves, we will discuss more at upcoming visit. documented in this encounterMer[facility] Work Phone: [phone] 726-782812-31-2024 Progress note* Result Encounter Note - Aleah Howard MD - 09/13/2024 9:45 AM EST Shazia your echocardiogram shows normal heart pump function and valves, we will discuss more at upcoming visit. [facility] Work Phone: [phone] 728-203512-23-2024 Telephone encounter Note* Telephone Encounter - Hilda Lemos RN - 09/05/2024 10:07 AM EST S- patient asked PCP to review labs B- recent ER visit 08/27/24 A- uploaded care everywhere. ER follow up phone call. R- Follow up scheduled 09/[address] [facility]. Lipase 271 at [facility] Concerned about Iron and Dupage reports. Patient will screenshot and send her lab work from the other hospitals in a [facility] message CALL FOR ER FOLLOW UP: On this date and time, Shazia was seen at 08/27/24 at [facility] 08/22/24 at [facility] How is patient doing now? Lipase 271 at [facility] Concerned about Iron and Dupage reports. Patient will screenshot and send her [...] updated care everywhere. RX: none Hilda KHALIL belt dresser of Dr. Carson [facility] [address] [place] [address] phone [phone] fax [facility]12-23-2024 Miscellaneous Notes* Telephone Encounter - Hilda Lemos RN - 09/05/2024 10:07 AM EST S- patient asked PCP to review labs B- recent ER visit 08/27/24 A- uploaded care everywhere. ER follow up phone call. R- Follow up scheduled 09/[address] [facility]. Lipase 271 at [facility] Concerned about Iron and Dupage reports. Patient will screenshot and send her lab work from the other hospitals in a [employer] message CALL FOR ER FOLLOW UP: On this date and time, Shazia was seen at 08/27/24 at [facility] 08/22/24 at [facility] How is patient doing now? Lipase 271 at [facility] Concerned about Iron and Dupage reports. Patient will screenshot and send her [...] updated care everywhere. RX: none Hilda KHALIL belt dresser of Dr. Carson [facility] [address] [place] [address] phone [phone] fax documented in this encounterSumma Health12-12-2024 NoteHNO ID: [id number] Author: MARY JO TRINIDAD RN Service: ? [...] Chart review only. Signature: Mary Jo Trinidad RNSt. [facility]12-[facility]-2024 History of Present illness Narrative* Mary Jo Trinidad RN - 08/25/2024 2:56 PM EST ACM EDYTA RN Patient identified by name [...] Mary Jo Trinidad RN documented in this encounterSumma Health12-12-2024 NotePatient Outreach (AMBCMG) CASSIASHAZIA MALDONADO ([id number]) 1990 F Date Time Provider Department 08/25/24 MARY JO TRINIDAD During your visit today, we recorded the following information about you: Mary Jo Trinidad RN 08/25/2024 3:00 PM Signed [facility] EDYTA RN Patient identified by name and [...] None Patient Attributed To: QAE Payer: Mauricio STEPHANY Action Taken: No action needed. Contact made [...] Assessed Reason for Visit: ACM EDYTA RN [1637] Cmt: ED Utilization Review per request of [...] mg by mouth daily at bedtime. - hdddzsbbhgwn-lvl-oekj-FA-vit K (BARIATRIC MULTIVITAMINS) 45 mg iron- 800 [...] Encounter Status:Closed by MARY JO TRINIDAD on 08/25/24[facility]12-05-2024 Evaluation + Plan note Diagnostic Tests Pending * EBV Antibody Profile 08/18/24 * Jazmin Teixeira Ab Early Antigen 08/18/24 [facility] [id number] Telephone encounter Note* Telephone Encounter - Tevin Carson DO - 08/17/2024 3:12 PM EST The following approved medication requests have been transmitted electronically. Requested Prescriptions Pending Prescriptions Disp Refills lamoTRIgine (LAMICTAL) 25 mg tablet [Pharmacy Med Name: LAMOTRIGINE 25 MG TABLET] 360 tablet 0 Sig: Take 2 tablets by mouth two times a day. Tevin Carson DO [facility]12-04-2024 Miscellaneous Notes* Telephone Encounter - Tevin Carson [...] advise. Jacinda Arreola MA, documented in this encounterSumma Health12-04-2024 Telephone encounter Note * Telephone Encounter - Jcainda Arreola MA - 08/17/2024 2:42 PM EST Pt last seen 07/25/24. Pharmacy electronically requesting refills as follows: Requested Prescriptions Pending Prescriptions Disp Refills lamoTRIgine (LAMICTAL) 25 mg tablet [Pharmacy Med Name: LAMOTRIGINE 25 MG TABLET] 360 tablet 1 Sig: TAKE 2 TABLETS BY MOUTH TWICE A DAY Please review and advise. Jacinda Arreola MA, [facility]12-03-2024 NoteNormal sinus rhythm at 75 bpm normal intervals abnormal R wave progression cannot exclude previous anterior septal myocardial infarction, 1 ventricular premature beat is noted. 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 She is status post partial hysterectomy. She [...] lamoTRIgine (LAMICTAL) 50 mg, 2 times daily lyzwhrecfxey-uvn-pzpi-FA-vit K (Bariatric Multivitamins) 45 mg iron- 800 [...] already been to the emergency room in [place] for her symptoms. Follow-up after testing Discussed the impact of nicotine. Will continue to address at every visit. She was advised and encouraged to work on nicotine cessation. Provider Attestation - Scribe documentation Scribe Attestation By signing my name below, I, Chino Mckeon LPN attest that this documentation has been prepared under the direction and in the presence of Aleah Howard MD. All medical record entries made by the Scribe were at my direction and personally dictated by me. Ihave reviewed the chart and agree that the record accurately reflects my personal performance of the history, physical exam, discussion and plan. documented in this [facility] Work Phone: [phone]) 644-302511-25-2024 Instructions* Patient Instructions* Rita Knowles LPN - [...] Provided instructions on exercise. documented in this [facility] Work Phone: 1(969) 446-534211-11-2024 NoteHNO ID: [id number] Author: TEVIN CARSON, DO Service: ? Author Type: Physician Type: Progress Notes Filed: 07/25/2024 16:57 Note Text: [facility] Visit Assessment and Plan 1. [...] appointment. She is scheduled to see a bottom buffer at for this. ROS: As per HPI. [...] Mood and Affect: Mood normal. Behavior: Behavior normal.[facility]11-11-2024 History of Present illness Narrative* Tevin Carson, DO - 07/25/2024 3:07 PM EST [facility] Visit Assessment and Plan 1. Bipolar [...] appointment. She is scheduled to see a bottom buffer at for this. ROS: As per HPI. [...] normal. Behavior: Behavior normal. documented in this encounterSumma Health11-08-2024 Telephone encounter Note * Telephone Encounter - Tevin Carson DO - 07/22/2024 12:27 PM EST Agree with in office evaluation, needs to go to ED if symptoms worsen Tevin Carson DO [facility] Work Phone: 1(494) 298-854611-08-2024 Miscellaneous Notes* Telephone Encounter - Tevin Carson [...] s/p hyster Protocols used: Anxiety and Panic Cjhjim-NJOTL-QS Request/Response - Patient scheduled for ThursdayJul [address] Carson (20 minutes). Patient is alsoscheduled for 40 minutes on ThursdayJul [address] Carson. I did not cancel the Thursday appt in case a 40 min follow up would be appropriate. Please advise if needed. documented in this encounterSumma Health11-08-2024 Telephone encounter Note * Telephone Encounter - [...] s/p hyster Protocols used: Anxiety and Panic Dybhwm-IPVIY-DQ Request/Response - Patient scheduled for ThursdayJul [address] Carson (20 minutes). Patient is alsoscheduled for 40 minutes on ThursdayJul [address] Carson. I did not cancel the Thursday appt in case a 40 min follow up would be appropriate. Please advise if needed. [facility]11-08-2024 Telephone encounter Note* Telephone Encounter - Hilda Lemos RN - 07/22/2024 11:34 AM EST See nurse triage encounter. [facility]11-08-2024 Miscellaneous Notes* Telephone Encounter - Hilda Lemos RN - 07/22/2024 11:34 AM EST See nurse triage encounter. documented in this encounterSumma Health10-28-2024 Instructions* Patient Education - Ev Lindsey RT(R) - 07/11/2024 9:29 AM EDT Post procedure written instructions were given to patient. [facility]10-28-2024 Miscellaneous Notes* Patient Education - Ev Lindsey RT(R) - 07/11/2024 9:29 AM EDT Post procedure written instructions were given to patient. documented in this encounterSumma Health10-28-2024 NoteHNO ID: [id number] Author: VE LINDSEY RT (R) Service: Radiology Author Type: Math Instructor Type: Patient Education Filed: 07/11/2024 09:29 Note Text: Post procedure written instructions were given to patient.[facility]10-21-2024 History of Present illness Narrative* Omar Soliman [...] PATIENT PRESENTS WITH AN IMPLANTABLE OR ATTACHED PACKAGING TECH: No RADIOLOGY DEPARTMENT: Mammography PERIPHERAL IV DATA: Not applicable SIGNED BY: Lourdes Brewero Dante July 04, 2024 12:32 PM documented in this encounterSumma Health10-21-2024 NoteHNO ID: [id number] Author: OMAR SOLIMAN Mammo Tech Service: ? Author Type: Math Instructor Type: Progress Notes Filed: 07/04/2024 12:32 Note [...] PATIENT PRESENTS WITH AN IMPLANTABLE OR ATTACHED PACKAGING TECH: No RADIOLOGY DEPARTMENT: Mammography PERIPHERAL IV DATA: Not applicable SIGNED BY: Stewart Brewer July 04, 2024 12:32 [facility]10-21-2024 NoteHNO ID: [id number] Author: FATUMA TYLER APRN.IRENE Service: ? Author Type: Nurse Practitioner Type: Progress Notes Filed: 07/06/2024 08:25 Note Text: MEDICAL BREAST PATIENT NAME: Shazia Chou July 04, 2024 REFERRAL: She is self referred for an opinion regarding regarding LEFT breast painful lump and bloody nipple discharge HISTORY of PRESENT ILLNESS: Shazia Chou is a 33 year old premenopausal female who presents to the [facility] today for evaluation of left [...] Test performed by chemiluminescent immunoassay. Performed at [facility],[address] [place] [address] She takes a multivitamin daily. BMD: No PERSONAL BREAST HISTORY: Breast biopsy: No Breast cysts: No Breast surgery: No Breast cancer: No CANCER SURVEILLANCE: Mammograms: Date in [facility]: 12/09/23; results - Negative-Left breast only Breast MRI: Date in [facility]: 06/10/22; results - Negative Colonoscopy: No [...] discussed with the Patient or Patient's Authorized Wagon Washer. As applicable, any other physician, advance practice provider, medical student, or other health professional student that will be observing or involved in (more content not included)...[facility]10-21-2024 History of Present illness Narrative* Fatuma Tyler APRN.CNP - 07/04/2024 10:52 AM EDT MEDICAL BREAST PATIENT NAME: Shazia Chou July 04, 2024 REFERRAL: She is self referred for an opinion regarding regarding LEFT breast painful lump and bloody nipple discharge HISTORY of PRESENT ILLNESS: Shazia Chou is a 33 year old premenopausal female who presents to the [facility] today for evaluation of left [...] Test performed by chemiluminescent immunoassay. Performed at [facility],[address] [place] [address] She takes a multivitamin daily. BMD: No PERSONAL BREAST HISTORY: Breast biopsy: No Breast cysts: No Breast surgery: No Breast cancer: No CANCER SURVEILLANCE: Mammograms: Date in [facility]: 12/09/23; results - Negative-Left breast only Breast MRI: Date in [facility]: 06/10/22; results - Negative Colonoscopy: No [...] discussed with the Patient or Patient's Authorized Wagon Washer. Asapplicable, any other physician, advance practice provider, medical student, or other health professional student that will be observing or involved in the sensitive examination for educational or training purposes was discussed with the Patient or Authorized Wagon Washer. The Patient or Authorized Wagon Washer has agreed to proceed with the sensitive [...] which included preparing to see the patient, sqcb-kg-myyw patient care, completing clinical documentation, obtaining and/or reviewing separately obtained history, performing a medically appropriate examination, counseling and educating the patient/family/caregiver, ordering medications, tests, or procedures, and communicating results to the patient/family/caregiver. Fatuma Tyler APRN.CNP Medical Breast Specialist July 04, 2024 CC: Tevin Carson [id number] [place] [address] documented in this encounterSumma Health10-21-2024 Instructions* Patient Instructions* Naldo Borrego MA - [...] CNP, Medical Breast Specialist Sofia Shelton RN [phone] ([place]) Naldo Borrego, Measurement Supervisor [phone] ([place]) documented in this encounterSumma Health10-18-2024 Instructions* Patient Instructions* Tevin Carson DO - [...] me in 1 month documented in this encounterSumma Health10-18-2024 NoteHNO ID: [id number] Author: TEVIN CARSON DO Service: ? Author Type: Physician Type: Progress Notes Filed: 07/01/2024 12:18 Note Text: [facility] Visit Assessment and Plan 1. [...] rhythm with sinus arrhythmia at 73 BPM, FL interval 138 ms, normal QRS, poor quality [...] Cognition and Memory: Cognition normal. Comments: Slightly anxiousSt. [facility]10-[facility] History of Present illness Narrative* Tevin Carson DO - 07/01/2024 11:03 AM EDT [facility] Visit Assessment and Plan 1. Chest pain, unspecified type - ICD9: 786.50, ICD10: R07.9 (primary diagnosis) 2. Palpitations - ICD9: 785.1, ICD10: R00.2 3. Bipolar affective disorder in remission (HCC) - ICD9: 296.80, ICD10: F31.70 4. History of substance abuse ([facility]) - ICD9: 305.93, ICD10: F19.11 5. Borderline personality disorder (HCC) - ICD9: 301.83, ICD10: F60.3 Atypical chest pain, symptoms are not consistent with cardiac ischemia due to nonexertional nature of symptom and localization of the pain possible etiology include MSK versus anxiety, especially given recent detox from alcohol. - Electrocardiogram: An ECG today showed normal sinus rhythm with sinus arrhythmia at 73 BPM, FL interval 138 ms, normal QRS, poor quality [...] normal. Comments: Slightly anxious documented in this encounterSumma Health10-18-2024 Telephone encounter Note * Telephone Encounter - Naldo Borrego MA - 07/01/2024 10:23 AM EDT Shazia returned my call from yesterday about her appointment on Thursday. Patient stated that she had a mammogram and US done at [facility] recently because she felt a lump in [...] to one anotheror not. She plans to picker tender disk with reports from [facility] before her appointment. I asked her to arrive 30 minutes early to appointment so that we can start uploading the disk and she can fillout paperwork. She was appreciative for the call and information. Naldo Borrego MA [facility]10-18-2024 Miscellaneous Notes* Telephone Encounter - Naldo Borrego MA - 07/01/2024 10:23 AM EDT Shazia returned my call from yesterday about her appointment on Thursday. Patient stated that she had a mammogram and US done at [facility] recently because she felt a lump in [...] to one anotheror not. She plans to picker tender disk with reports from [facility] before [...] me. Naldo Borrego MA documented in this encounterSumma Health10-17-2024 Telephone encounter Note * Telephone Encounter - Naldo Borrego MA - 06/30/2024 2:43 PM EDT I called and left a message for the patient regarding her appointment 07/04 [address] Mrs[address] Tyler in the breast center. I left my contact information for her to reach me. Naldo Borrego MA [facility]09-16-2024 NoteHNO ID: [id number] Author: ORLANDO MARTINEZ MA Service: ? Author Type: Measurement Supervisor Type: Progress Notes Filed: 05/30/2024 13:52 Note Text: POPULATION HEALTH NAVIGATION OUTREACH Action/FYI Patient called back and I scheduled her for a ED follow up with TRAFFIC CHIEF in office. Also scheduled patient for est care appointment. Updated PCP field PER Navigation rules. ACM Reason for Outreach Community Monitoring/Network Navigator Pools AND Phone Line: ACM Patient Contacted: Spoke to patient/parent/or legal guardian Patient identified by name and : Yes Community Monitoring/Network Navigator Pools AND Phone Line actions taken: Patient scheduled: ER Follow-up Establish Care Appointment 05/31/2024 in [facility] with LISHA BIANCHI - ED follow up 07/01/2024 in [facility] with TEVIN CARSON est care 08/05/2024 in [facility] with ROBERTO MCKEON of pancreatic cancer, Phx of pancreatic mass Action taken: Marked in OnBase for Schedulers PCP field updated Navigation Signature: Orlando Martinez MA May 30, 2024 1:44 [facility]09-16-2024 History of Present illness Narrative* Orlando Martinez MA - 05/30/2024 1:37 PM EDT POPULATION HEALTH NAVIGATION OUTREACH Action/FYI Patient called back and I scheduled her for a ED follow up with TRAFFIC CHIEF in office. Also scheduled patient for est care appointment. Updated PCP field PER Navigation rules. ACM Reason for Outreach Community Monitoring/Network Navigator Pools & Phone Line: ACM Patient Contacted: Spoke to patient/parent/or legal guardian Patient identified by name and : Yes Community Monitoring/Network Navigator Pools & Phone Line actions taken: Patient scheduled: ER Follow-up Establish Care Appointment 05/31/2024 in [facility] with LISHA BIANCHI - ED follow up 07/01/2024 in [facility] with TEVIN CARSON est care 08/05/2024 in [facility] with ROBERTO MCKEON of pancreatic cancer, [...] patient to Network Navigation to schedule a [facility] ED 05/23/24 PCP follow-up appointment. Thank you 1st attempt- Called and left a voicemail for patient to call me back directly. Olive Loomhart message sent Postponing for 2 days. [facility] Reason for Outreach Community Monitoring/Network Navigator Pools & Phone Line: [facility] Patient Contacted: Unable or unnecessary to reach patient: Left message [employer] message sent Navigation Signature: Orlando Martinez MA [...] record. We are forwarding this patient to [employer] Navigation to schedule a [facility] ED 05/23/24 PCP follow-up appointment. Thank you Exclusion Criteria - Does not meet exclusion criteria ED DIAGNOSES/REASON(S) FOR ED USE: [facility] OTHER FINDINGS/SUMMARY: Unable to locate ED discharge summary in Care everywhere Patient Attributed To: QAE Payer: Mauricio HAMMOND Action Taken: Referrals/Routed: Population Health Navigation: Appointment. Router to COMMUNITY MONITORING PSS POOL [[phone]] Contact made with patient: No, Chart review only. Signature: Lenora KHALIL, RN, [facility] Primary Care Transitional Icing Machine Operator [facility] [phone] documented in this encounterSumma Health09-16-2024 NoteHNO ID: [id number] Author: ORLANDO MARTINEZ MA Service: ? Author Type: Measurement Supervisor Type: Progress Notes Filed: 05/30/2024 13:07 Note Text: POPULATION HEALTH NAVIGATION OUTREACH Action/FYI Reason for review or outreach: Chart Review Edyta Priority Emergency Department Utilization REQUESTED ACTION/FYI: Please see ED Utilization summary below: A follow-up appointment is not noted in patient's record. We are forwarding this patient to [employer] to schedule a [facility] ED 05/23/24 PCP follow-up appointment. Thank you 1st attempt- Called and left a voicemail for patient to call me back directly. Olive Loomhart message sent Postponing for 2 days. AC Reason for Outreach Community Monitoring/Network Navigator Pools AND Phone Line: [facility] Patient Contacted: Unable or unnecessary to reach patient: Left message [employer] message sent Navigation Signature: Orlando Martinez MA May 30, 2024 1:01 [facility]09-16-2024 NoteHNO ID: [id number] Author: LENORA YEE, RN Service: ? Author [...] record. We are forwarding this patient to [employer] to schedule a [facility] ED 05/23/24 PCP follow-up appointment. Thank you Exclusion Criteria - Does not meet exclusion criteria ED DIAGNOSES/REASON(S) FOR ED USE: [place] ED OTHER FINDINGS/SUMMARY: Unable to locate ED discharge summary in Care everywhere Patient Attributed To: [place]ER[place] Payer: Mauricio HAMMOND Action Taken: Referrals/Routed: Population Health Navigation: Appointment. Router to COMMUNITY MONITORING PSS POOL [[phone]] Contact made with patient: No, Chart review only. Signature: Lenora Yee MSN, RN, [facility] Primary Care Transitional Icing Machine Operator [facility] [phone]. [facility] Hospital09-16-2024 NotePatient Outreach ([facility]) SHAZIA CHOU ([id number]) 1990 F Date Time Provider Department 05/30/24 LENORA YEE [facility] During your visit today, we recorded the [...] record. We are forwarding this patient to [employer] Navigation to schedule a [facility] ED 05/23/24 PCP follow-up appointment. Thank you Exclusion Criteria - Does not meet exclusion criteria ED DIAGNOSES/REASON(S) FOR ED USE: [place] ED OTHER FINDINGS/SUMMARY: Unable to locate ED discharge summary in Care everywhere Patient Attributed To: E Payer: Mauricio HAMMOND Action Taken: Referrals/Routed: Population Health Navigation: Appointment. Router to [facility] [[phone]] Contact made with patient: No, Chart review only. Signature: Lenora KHALIL, RN, [facility] Primary Care Transitional Icing Machine Operator [facility] [phone] Orlando Martinez MA 05/30/2024 1:07 PM Addendum POPULATION HEALTH NAVIGATION OUTREACH Action/FYI Reason for review or outreach: Chart Review Edyta Priority Emergency Department Utilization REQUESTED ACTION/FYI: Please see ED Utilization summary below: A follow-up appointment is not noted in patient's record. We are forwarding this patient to [employer] Navigation to schedule a [facility] ED 05/23/24 PCP follow-up appointment. Thank you 1st attempt- Called and left a voicemail for patient to call me back directly. Mychart message sent Postponing for 2 days. AC Reason for Outreach Community Monitoring/Network Navigator Pools AND Phone Line: ACM Patient Contacted: Unable or unnecessary to reach patient: Left message MyChart message sent Navigation Signature: Orlando SanchezSTEPHANY jennings May 30, 2024 1:01 PM Michelle OrlandoSTEPHANY cade 05/30/2024 1:52 PM Addendum POPULATION HEALTH NAVIGATION OUTREACH Action/FYI Patient called back and I scheduled her for a ED follow up with TRAFFIC CHIEF in office. Also scheduled patient for est care appointment. Updated PCP field PER Navigation rules. AC Reason for Outreach Community Monitoring/Network Navigator Pools AND Phone Line: ACM Patient Contacted: Spoke to patient/parent/or legal guardian Patient identified by name and : Yes Community Monitoring/Network Navigator Pools AND Phone Line actions taken: Patient scheduled: ER Follow-up Establish Care Appointment 05/31/2024 in [facility] with LISHA BIANCHI - ED follow up 07/01/2024 in [facility] with TEVIN CARSON - est care 08/05/2024 in [facility] with ROBERTO MCKEON - Fhx of pancreatic cancer, Phx of pancreatic mass Action taken: Marked in OnBase for Schedulers PCP field updated Navigation Signature: Orlando SanchezSTEPHANY jennings May 30, 2024 1:44 PM Allergies As of Date: 05/30/2024 Noted Allergy Reaction ARIPIPRAZOLE 08/19/2022 1 - Mental Status Change 14 - Other: See Comments 16 - Unknown BUPROPION 07/16/2021 16 - Unknown COCONUT 11/20/2022 7 - Swelling Date Reviewed: 03/08/2024 Reviewed by: Sofia Benavidez, MARCO - Fully Assessed Reason for Visit: ACM EDYTA RN [[id number]] Cmt: ED Utilization review per request of [...] mg by mouth daily at bedtime. - moslyhgfdjab-jfc-rsax-FA-vit K (BARIATRIC MULTIVITAMINS) 45 mg iron- 800 mcg-120 mcg cap Take by mouth. Problem List As Of Date 05/30/2024 Noted Resolved Poor growth, affecting management of moth*07/03/2008 03/08/2024 Idiopathic intracranial hypertension [G93.2] 11/20/2022 Primary hypertension [I10] 11/20/2022 03/08/2024 Depression [F32.A] 11/20/2022 Hx of gastric bypass [Z98.84] 11/20/2022 H/O foot surgery [Z98.890] 11/20/2022 Bipolar affective d (more content not included)...[facility] 05-12-2024 NoteHNO ID: [id number] Author: ?, ?, ? Service: ? Author Type: ? Type: Progress Notes Filed: 05/12/2024 17:42 Note Text: MCM sent to pt advising her that her Breast MRI has still not been scheduled. Pancreas was completed. Kimberli Malave PSSSt. Francis Hospital08-13-2024 History of Present illness Narrative* Lauren Capellan LPN - 04/26/2024 3:43 PM EDT Outreach message sent documented in this encounterSumma Health08-13-2024 NoteHNO ID: [id number] Author: LAUREN CAPELLAN LPN Service: ? Author Type: LICENSED NURSE Type: Progress Notes Filed: 04/26/2024 15:43 Note Text: Outreach message sentSt. Francis Hospital08-13-2024 NotePatient Outreach ([facility] SHAZIA CHOU ([id number]) 1990 F Date Time Provider Department 04/26/24 ELIA BAIRES [facility] During your visit today, we recorded the [...] mg by mouth daily at bedtime. - jfymzlmrfusm-nrm-fjur-FA-vit K (BARIATRIC MULTIVITAMINS) 45 mg iron- 800 [...] 03/08/2024 Encounter Status:Closed by LAUREN CAPELLAN on 04/26/24[facility] 03-08-2024 Hospital Discharge instructions Patient Education [...] Follow these instructions at home: Medicines Take ctir-urj-nieorwf and prescription medicines only as told by your health care provider. Ask your health care provider if the medicine prescribed to you: ?Requires you to avoid driving or using heavy machinery. ?Can cause constipation. You may need to take these actions to prevent or treat constipation: ?Drink enough fluid to keep your urine pale yellow. ?Take xcoz-hwo-vtauttf or prescription medicines. ?Eat foods that are [...] provider. Document Revised: 12/08/2022 Document Reviewed: 01/24/2020 [employer] Patient Education 2022 [employer]. 03/08/2024 15:36:59 Head Injury, Adult Head Injury, [...] Ask your health care provider for a zbqh-ww-ajng plan for gradually returning to activities. Ask [...] your friends, family, a trusted colleague, and painting worker about your injury, symptoms, and restrictions. Have them watch for any new or worsening problems. General instructions Take fhuy-cyo-lprmtbr and prescription medicines only as told by [...] provider. Document Revised: 07/13/2020 Document Reviewed: 07/13/2020 [employer] Patient Education 2022 [employer]. 03/08/2024 15:36:59 Muscle Strain Muscle Strain A [...] is not too tight. General instructions Take xcgz-ikr-njsldtv and prescription medicines only as told by [...] provider. Document Revised: 11/18/2021 Document Reviewed: 11/18/2021 [employer] Patient Education 2022 [employer]. Follow Up Care 03/08/2024 13:07:25 With:David Zazueta Address: [address], [address] [place] [address]- [phone] Business (1) When:03/11/2024 15:24:14 With:Jennie Durand Address: [address] [place] [address]- Business (1) When:Within 3 Day(s) [facility]06-25-2024 History of Present illness Narrative* Sofia Benavidez, MARCO - 03/08/2024 10:00 AM EDT Radiology Service [...] 08, 2024 TIME: 10:01 AM * Mirlande Diaz MRI Tech - 03/08/2024 10:00 AM EDT Radiology Service [...] PATIENT PRESENTS WITH AN IMPLANTABLE OR ATTACHED PACKAGING TECH: No RADIOLOGY DEPARTMENT: MR; Exam(s) Completed: Body: Pancreas/Biliary PERIPHERAL IV DATA: Site assessment: Clean,Dry and Intact, Site disposition Discontinued SIGNED BY: MARIXA Tovar March 08, 2024 10:35 AM documented in this encounterSumma Health06-25-2024 NoteHNO ID: [id number] Author: MIRLANDE DIAZ MRI Tech Service: Radiology Author Type: Math Instructor Type: Progress Notes Filed: 03/08/2024 10:36 Note [...] PATIENT PRESENTS WITH AN IMPLANTABLE OR ATTACHED PACKAGING TECH: No RADIOLOGY DEPARTMENT: MR; Exam(s) Completed: Body: Pancreas/Biliary PERIPHERAL IV DATA: Site assessment: Clean,Dry and Intact, Site disposition Discontinued SIGNED BY: Mirlande Diaz check inspector March 08, 2024 10:35 [facility]06-25-2024 NoteHNO ID: [id number] Author: SOFIA BENAVIDEZ RN Service: Nursing Author [...] Chou DATE: March 08, 2024 TIME: 10:01 [facility]06-25-2024 Instructions* Patient Instructions* Elia Baires DO - 03/08/2024 8:47 AM EDT 1) Schedule appointment with Austin Mata to discuss Adipex. 2) Schedule MRI of breast 3) I can refill the klonopin as needed. 4) Try steroid as needed twice daily 5) Follow-up in [address] Carson to establish care documented in this encounterSumma Health06-25-2024 NoteHNO ID: [id number] Author: ELIA BAIRES DO Service: ? Author [...] to establish with [facility]ry [facility]. Says they stopped her Rexulti and switch to Lamictal 75 mg daily. Says this has dramatically improved her symptoms. Currently taking duloxetine 60 mg twice daily and trazodone 50 mg at bedtime. She says that she has only needed to use her clonazepam a few times a week. H (more content not included)...[facility]06-25-2024 History of Present illness Narrative* Elia Baires [...] to establish with psychiatry at [facility]. Says they stopped her Rexulti and switch [...] updated today in the History tab of [employer]. REVIEW OF SYSTEMS: All other reviewed and [...] Dr. Elia Baires DO documented in this encounterSumma Health04-22-2024 Instructions* Patient Instructions* Elia Baires DO - 01/04/2024 10:16 AM EDT 1) Give urine sample today. 2) Placed lab orders. Fast for 12 hours then get labs. 3) I would follow-up with your psychiatrist in January 4) Physical in 1-2 months. documented in this encounterSumma Health04-22-2024 NoteHNO ID: [id number] Author: ELIA BAIRES DO Service: ? Author [...] She says that she is originally from [facility] however came up to here today [...] to establish with a new psychiatrist at [facility] in [place]. She also sees a counselor weekly. Current [...] No psychosis or maryam. Dr. Elia Baires, [facility]04-22-2024 History of Present illness Narrative* Elia Baires, [...] She says that she is originally from [facility] however came up to here today [...] to establish with a new psychiatrist at [facility] in [place]. She also sees a counselor weekly. Current [...] Dr. Elia Baires DO documented in this encounterSumma Health01-05-2024 Hospital Discharge instructions* Discharge Instructions* Gamaliel Vickers [...] questions, PLEASE call your doctor or the [facility] at documented in [facility] History of Present illness Narrative* Ce Bustamante, RN - 09/16/2023 1:25 PM EST PAT phone call for /EGD completed with pt. Date/time/location (entrance C) of surgery/procedure verified with pt. NPO after MN status verified with pt. 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 Instructed pt to take a shower the AM of surgery/procedure and to avoid lotions, creams, jewelry. Encouraged pt to avoid artificial nails and/or nailpolish. Instructed pt to take BP meds with a small sip of water prior to procedure/surgery. documented in this encounterCAR[facility] Evaluation note* Encounter Date Diagnosis Assessment Notes Treatment Notes Treatment Clinical Notes Jul, Pancreatic cyst (ICD-10 - K86.2) Züm XR Other 10-25-2023 Evaluation note* Encounter Date Diagnosis [...] stop smoking. Jun, Smoker (ICD-10 - F17.200) Züm XR Other 09-27-2023 NoteHNO ID: [id number] Author: Eileen Alvarez MD Service: ? Author Type: Physician Type: Progress Notes Filed: 06/10/2023 3:39 PM Note Text: [facility] Follow Up / Established Virtual Visit I have communicated my name and active licensure. The patient's identity and physical location were verified at the time of this visit. 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 [...] she agreed. She needs to follow with title insurance examiner every 6 months. In some patients with [...] her eyes. She has never seen an title insurance examiner. CSF protein 24, Glu 55, Pro 28, [...] cognition, memory, speech. Cr (more content not included)...[facility] [id number] Miscellaneous Notes * Telephone Encounter - Clara [...] A DAY IN A WEEK Pharmacy Name: [facility] Pharmacy Phone #: [phone] Fabby Cassidy documented in this encounterSumma Health07-06-2023 Evaluation + Plan note Diagnostic Tests Pending * Zinc Level 03/19/23 * PTH Intact 03/19/23 * Vitamin A Level 03/19/23 * Vitamin B1 03/19/23 Future Scheduled Tests Laboratory* CBC w/ Auto Diff 07/21/22 Radiology* MA Mamm Screen w/CAD if perf and 3D Tanmay 04/21/22 [facility]05-04-[facility]23 Hospital Discharge instructions Patient Education 01/15/2023 [...] Follow these instructions at home: Medicines Take jpgb-dkc-waziqrh and prescription medicines only as told by [...] provider. Document Revised: 11/14/2021 Document Reviewed: 11/14/2021 StyleJam Patient Education 2022 [employer]. Follow Up Care 01/15/2023 10:48:45 With:Jennie Durand Address: [facility] Mahin Robertson, Mic , [facility] [address] [place] [address]- Business (1) When:01/18/2023 13:32:37 [facility]05-04-2023 Evaluation + Plan noteExtracted from: Title:ED [...] w/CAD if perf and 3D Tanmay 04/21/22 [facility]03-31-2023 Miscellaneous Notes* Telephone Encounter - Clara Durbin RN - 12/12/2022 3:03 PM EDT Spoke with patient and informed that per [facility] pharmacy, there are remaining refills on [...] A DAY IN A WEEK Pharmacy Name: [facility] Pharmacy Phone #: [phone] Fabby Cassidy documented in this encounterSumma Health03-24-2023 Hospital Discharge instructions Patient Education 12/05/2022 12:15:12 Post Op Patient Instructions - FT (CUSTOM) 12/05/2022 12:15:12 DIELECTRIC TESTER - Post Hysterectomy/Laparotomy/Major Surgery-Thiago (CUSTOM) Instructions post [...] PROBLEMS. Follow Up Care 11/04/2022 14:01:47 With:Gal Thiago Address: [facility] MAHIN ROBERTSON, [address] [address] Business (1) When:6 weeks With:Gal Das Address: [facility] MAHIN ROBERTSON, [address] [address] Business (1) When:2 weeks Comments:Call for any problems. [facility]03-24-2023 Evaluation + Plan noteExtracted from: Title:ANES Post-operative Note - General Author: Vu Maria Jr., DO Date:12/05/22 Plan Transfer/Discharge: Transfer/Discharge Discharge when meets criteria ( From PACU to Ambulatory Surgery Unit, and To home ). Extracted from: Title:ANES Pre-operative Note - Adult Author:Vu Chowdhury Jr., DO Date:12/05/22 Plan [place] Society [employer] Anesthesiologists (ASA) physical status classification: Class II. Anesthetic Preoperative Plan: Anesthesia General. Future Appointments Appointment Date:01/02/2023 10:00:00 AM Scheduled Provider:Nakia Shah Location:[facility] Appointment Type:FM Open Future Scheduled Tests Laboratory* CBC w/ Auto Diff 07/21/22 Radiology* MA Mamm Screen w/CAD if perf and 3D Tanmay 04/21/22 [facility]03-09-2023 NoteHNO ID: [id number] Author: Eileen Alvarez MD Service: ? 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 She has never seen an title insurance examiner. CSF protein 24, Glu 55, Pro 28, [...] congenital deformity, seen in the [facility] for: 1. [...] she agreed. She needs to follow with title insurance examiner every 6 months. In some patients with [...] --start acetazolamide (diamox 500m (more content not included)...[facility] [id number] Instructions* Patient Instructions* Eileen Alvarez MD - [...] up in 2-4 months documented in this encounterSumma Health03-09-2023 History of Present illness Narrative* Eileen Alvarez MD - 11/20/2022 7:57 AM EST Images from the original note were not included. 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 She has never seen an title insurance examiner. CSF protein 24, Glu 55, Pro 28, [...] congenital deformity, seen in the [facility] for: 1. [...] she agreed. She needs to follow with title insurance examiner every 6 months. In some patients with [...] Take 40 mg by mouth once daily. fkbczgyueres-hkf-abor-FA-vit K (BARIATRIC MULTIVITAMINS) 45 mg iron- 800 [...] % Lymph% 20 15.9 - 47.3 % Dupage% 6 0.0 - 12.0 % Eosin% 3 0.0 - 6.6 % Baso% 1 0.0 - 1.2 % Abs Neut (ANC) 7.64 (H) 1.45 - 7.50 k/uL Abs Lymph 2.18 1.00 - 4.00 K/uL Abs Dupage 0.65 0.00 - 0.86 k/uL Abs Eosin [...] which included preparing to see the patient, ccpw-qx-txyj patient care, completing clinical documentation, obtaining and/or reviewing separately obtained history, performing a medically appropriate examination, counseling and educating the pat ient/family/caregiver, ordering medications, tests, or procedures, independently interpreting results (not separately reported), communicating results to the patient/family/caregiver, and care coordination (not separately reported). Eileen Alvarez MD documented in this encounterSumma Health02-20-2023 Hospital Discharge instructions Patient Education 11/03/2022 13:28:28 [...] height. This can be done either in Indonesian (U.S[place] or metric measurements. Note that charts are available to help you find your BMI quickly and easily without having to do these calculations yourself. To calculate your BMI in Indonesian ([place].S[place] measurements, your health care provider will: [...] medical problems. BMI can be measured using Indonesian measurements or metric measurements. To interpret your [...] 05/12/2005 Document Revised: 08/13/2018 Document Reviewed: 07/14/2018 StyleJam Patient Education 2020 [employer]. 11/03/2022 13:28:26 Tobacco Use Disorder Tobacco Use [...] reduces withdrawal symptoms. NRT is available as: ?Gfxv-yen-gwoqkpl gums, lozenges, and skin patches. ?Prescription mouth [...] recovery for many people. General instructions Take fnfg-ytu-pzkbzqh and prescription medicines only as told by your health care provider. Check with your health care provider before taking any new prescription or cdjy-haq-zxbvbla medicines. Decide on a friend, family member, or smoking quit-line (such as 0-206-YSBQ-NOW in the [place] that you can call [...] 05/06/2005 Document Revised: 08/18/2018 Document Reviewed: 08/18/2018 [employer]Jam Patient Education 2020 [employer]. 11/03/2022 13:28:23 Alcohol Abuse and Dependence Information, [...] find support Your health care provider. SMART YouFetch: www.smartrecovery.org Therapy and support groups Local treatment centers or chemical dependency counselors. Local AA groups in your community: www.aa.org Where to find more information Centers for Disease Control and Prevention: www.cdc.gov National [place] on Alcohol Abuse and Alcoholism: www.niaaa.nih.gov Alcoholics [...] 08/25/2017 Document Revised: 12/20/2019 Document Reviewed: 11/08/2019 [employer]Jam Patient Education 2020 [employer]. 11/03/2022 13:28:19 BMI for Adults BMI for [...] height. This can be done either in Indonesian ([place] or metric measurements. Note that charts are available to help you find your BMI quickly and easily without having to do these calculations yourself. To calculate your BMI in Indonesian ([place] measurements, your health care provider will: [...] medical problems. BMI can be measured using Indonesian measurements or metric measurements. To interpret your [...] 05/12/2005 Document Revised: 08/13/2018 Document Reviewed: 07/14/2018 [employer]Jam Patient Education 2020 [employer]. 10/27/2022 11:56:27 Alcohol Abuse and Dependence Information, [...] for Disease Control and Prevention: www.cdc.gov National Keiser on Alcohol Abuse and Alcoholism: www.niaaa.nih.gov Alcoholics [...] 08/25/2017 Document Revised: 12/20/2019 Document Reviewed: 11/08/2019 StyleJam Patient Education 2020 [employer]. Follow Up Care 10/15/2022 11:28:56 With:MissNakia Mcwilliams Address: Monse [address], [place] [address]- When:Within 2 Month(s) Comments:f/u smoking cessation and BP [facility] 01-11-2023 Hospital Discharge instructions [...] reduces withdrawal symptoms. NRT is available as: ?Rwcj-swl-ydfwoxt gums, lozenges, and skin patches. ?Prescription mouth [...] recovery for many people. General instructions Take ubzv-ika-xlxfigv and prescription medicines only as told by your health care provider. Check with your health care provider before taking any new prescription or ohxe-ioq-njduoux medicines. Decide on a friend, family member, or smoking quit-line (such as 6-026-LBDX-NOW in the [place] that you can call [...] 05/06/2005 Document Revised: 08/18/2018 Document Reviewed: 08/18/2018 [employer]Jam Patient Education 2020 [employer]. 09/24/2022 07:23:47 BMI for Adults BMI for [...] height. This can be done either in Indonesian ([place].S[place] or metric measurements. Note that charts are available to help you find your BMI quickly and easily without having to do these calculations yourself. To calculate your BMI in Indonesian ([place] measurements, your health care provider will: [...] medical problems. BMI can be measured using Indonesian measurements or metric measurements. To interpret your [...] 05/12/2005 Document Revised: 08/13/2018 Document Reviewed: 07/14/2018 [employer]Jam Patient Education 2020 [employer]. 09/24/2022 07:23:45 Alcohol Use Disorder Alcohol Use [...] centers. Follow these instructions at home: Take lwlw-evl-eduugge and prescription medicines only as told by [...] 10/08/2005 Document Revised: 08/13/2018 Document Reviewed: 05/28/2017 [employer]Jam Patient Education 2020 [employer]. 09/24/2022 07:23:42 Borderline Personality Disorder, Adult Borderline [...] with BPD should do these things: Take zarh-kty-syobxwh and prescription medicines only as told by [...] important. Where to find more information National [place] on Mental Illness: www.marivel.org U.S. National Keiser of Mental Health: www.nimh.nih.gov Contact a health [...] 12/16/2011 Document Revised: 08/13/2018 Document Reviewed: 11/05/2017 StyleJam Patient Education 2020 [employer]. 09/24/2022 07:23:39 Managing Bipolar Disorder Managing Bipolar [...] Follow these instructions at home: Medicines Take lrso-xhd-qowpbtx and prescription medicines only as told by your health care provider or pharmacist. Ask your pharmacist what fxvf-nls-azdlbqp cold medicines you should avoid. Some medicines [...] search for a local or [facility] mental health care center. Public [...] 12/31/2017 Document Revised: 12/23/2019 Document Reviewed: 12/31/2017 [employer] Patient Education 2020 [employer]. Follow Up Care 09/16/2022 13:23:11 With:Aimee Walker CNP Address: [address] [place] [phone] When:3 months [facility] 12-09-2022 Hospital Discharge instructions Patient Education 08/22/2022 11:12:56 Tension Headache, Adult, Ctnn-fh-Vekg Tension Headache, Adult A tension headache is pain, pressure, or aching in your head. Tension headaches can last from 30 minutes to several days. Follow these instructions at home: Managing pain Take glip-jxy-yrnykuw and prescription medicines only as told by [...] 11/25/2010 Document Revised: 08/13/2018 Document Reviewed: 12/11/2017 [employer]Jam Patient Education 2020 [employer]. Follow Up Care 08/14/2022 12:38:29 With:Rita SNOWDEN, IGGY Roberson, PED Address: [facility] Mahin Robertson, [facility] [place] [address] When:1 month only if needed Comments:40 mins [facility] 12-05-2022 Hospital Discharge instructions [...] feet clean and dry. General instructions Take vkbz-kwn-jeixtbp and prescription medicines only as told by [...] 09/26/2016 Document Revised: 06/16/2019 Document Reviewed: 06/16/2019 StyleJam Patient Education 2020 [employer]. 08/18/2022 19:56:48 Foot Sprain Foot Sprain A [...] fully hardened. This may takeseveral hours. Take sdys-izd-umuaeoh and prescription medicines only as told by [...] 02/20/2003 Document Revised: 09/04/2018 Document Reviewed: 09/04/2018 [employer]Jam Patient Education 2020 [employer]. 08/18/2022 19:56:48 Elastic Bandage and RICE Therapy [...] limityour activities and whether you should start kjzjo-kh-fylhsf exercises for your injury. Ice Ice your [...] 02/20/2003 Document Revised: 05/21/2018 Document Reviewed: 05/21/2018 StyleJam Patient Education 2020 [employer]. Follow Up Care 08/18/2022 17:21:15 With:Hilton Gillis Address: [address] [place], [place] [id number] [employer] (1) When:08/21/2022 19:10:21 With:Aimee Walker Address:Unknown When:Within 3 Day(s) [facility]11-29-[facility] Progress note Author Lizzeth Semaskiene [facility] August 12, 2022 10:46am Note Date/Time August 12, 2022 10:45am [facility] [address] [place] [address] Hospitalist Progress Note Signed Patient: Shazia Chou MR#: [id number] : 1990 Acct:[id number] Age/Sex: 31 / F Adm Date: 2 Loc: 4N Room: 6B8890-9 Type: ADM INOo Attending Dr: Lizzeth Malave MD Copies to: ~ Date of Service: 08/12/2022 Subjective Subjective Narrative: Shazia Chou is a 31yo F. She was transferred here last night from [facility] with worsening headache and blurry vision [...] Flu Vac Quad (36mon+)Pf 0.5 Ml Syringe [id number] IM 08/13/22 09:01 .ONCE ONE Omeprazole 20 [...] signed by Lizzeth Malave MD> 08/12/22 1046 [facility] Work Phone: 1(681) 545-625911-29-2022 Consult note Author Kenrick Lee [facility] August 12, 2022 4:21pm Note Date/Time August 12, 2022 8:13am [facility] [address] [place] [address] Neurology Consult Note Signed Patient: Shazia Chou MR#: [id number] : 1990 Acct:[id number] Age/Sex: 31 / F Adm Date: 2 Loc: Room: [address] [place] [address] Type: ADM INOo Attending Dr: Lizzeth Malave MD Copies to: DO Jennie Wise ANP-C Ruta Semaskiene, MD~ HPI Consult Date: 08/12/22 Keeper Helper: ASTON Bro with Dr Lee Reason for consult: Headache, blurred vision Consult Narrative HPI: Patient is a 31-year-old female with medical history of bipolar, personality disorder, depression, and tobacco use in addition to 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 She has been seen in neurological consultation with request of the hospital service for headache and blurred vision. Patient initially presented to [facility] and was transferred to [facility] for evaluation. She was seen in the [place] [facility] on 08/08/2022 with similar symptoms and [...] this is when she called EMS. At [facility] she had a CT scan of [...] extremity from prior surgery CEREBELLAR EXAM: * Itapsh-kt-dsnp and alternating movements are intact and normal in bilateral upper extremities * Dpbq-kn-owee and alternating movements are intact and normal [...] puncture based on these results. Evaluation at [facility]: * CT scan head is nonacute. [...] once daily). Okay for discharge now from [facility]. Documented By: EDINSON Dias [id number] Signed By: <Electronically signed by EDINSON Niño> 08/12/22 0958 <Electronically signed by Kenrick Lee DO> 08/12/22 5988 [facility] Work Phone: 1(321) 603-632311-28-2022 History and physical note Author Sangeetha Peña [facility] August 11, 2022 9:43pm Note Date/Time August 11, 2022 9:08pm [facility] [address] [place] [address] Hospitalist H&P Signed Patient: Shazia Chou MR#: [id number] : 1990 Acct:[id number] Age/Sex: 31 / F Adm Date: 2 Loc: 4N Room: [address] [place] [address] Type: ADM IN Attending Dr: Erin Barahona MD Copies to: MD Erin Mcwilliams MD~ HPI DATE OF EXAMINATION: 08/11/22 CHIEF COMPLAINT: Headache with blurry vision HISTORY OF PRESENT ILLNESS: Patient is a pleasant 31-year-old female with history of borderline personality disorder, bipolar disorder and depression. She was accepted by daytime hospitalist when contacted by [place] [facility] physician due to concern for headache [...] pain or dysuria. She was seenin the [place] [facility] on 08/08 with [facility] symptoms. [facility] Patient [...] vision: Plan Patient has been transferred from [facility] when she presented with complaint of headache and blurry vision. During my evaluation her blood pressure is in 115 systolic and complaining of headache with blurry vision. Denies diplopia with no pain in extraocular movement. There is concern for possible idiopathic intracranial hypertension and patient has been transferred to [facility] for further management and neurology evaluation. [...] <Electronically signed by Sangeetha Peña MD> 08/11/22 [facility] Work Phone: 1(194) 863-235011-25-2022 Evaluation + Plan noteExtracted from: Title:ED Note [...] Nausea/Vomiting, # 12 tab(s), Refills(s) 0, Pharmacy: [facility]/pharmacy #[id number], 162, cm, 08/08/22 9:11:00 EST, Height/Length Dosing, 83.1, kg, 08/08/22 9:11:00 EST, Weight Dosing Automated Diff Basic Metabolic Panel Beta hCG Qual CBC w/ Auto Diff CT Head or Brain w/o Contrast eGFR Influenza A&B Ag Rapid COVID Antigen ([employer] [employer]) UA With Cult Reflex Future Scheduled Tests Laboratory* CBC w/ Auto Diff 07/21/22 Radiology* MA Mamm Screen w/CAD if perf and 3D Tanmay 04/21/22 [facility]11-25-2022 Hospital Discharge instructions Patient Education 08/08/2022 [...] health care provider to lose weight. Take atdi-zsm-uznpuhk and prescription medicines only as told by [...] 11/09/2002 Document Revised: 08/13/2018 Document Reviewed: 07/22/2017 [employer]Jam Patient Education [employer]. Follow Up Care 08/08/2022 09:04:11 With:Kenrick Lee Address: [address] [place] [address] [facility] (1) When:08/11/2022 11:38:22 Comments:Follow-up with Dr. [...] you develop any new or worsening symptoms. [facility]11-07-2022 Evaluation + Plan note Future Scheduled Tests Laboratory* CBC w/ Auto Diff 07/21/22 Radiology* MA Mamm Screen w/CAD if perf and 3D Tanmay 04/21/22 [facility] 11-07-2022 Evaluation + Plan note Future Scheduled Tests Laboratory* CBC w/ Auto Diff 07/21/22 [facility] Hospital Discharge instructions Patient Education 07/21/2022 [...] Follow these instructions at home: Medicines Take qxpq-duo-bpugsrj and prescription medicines only as told by your health care provider or pharmacist. Ask your pharmacist what zuog-nhz-oxhgryp cold medicines you should avoid. Some medicines [...] search for a local or [facility] mental health care center. Public [...] 12/31/2017 Document Revised: 12/23/2019 Document Reviewed: 12/31/2017 StyleJam Patient Education 2020 [employer]. 07/21/2022 11:21:57 Tobacco Use Disorder Tobacco Use [...] reduces withdrawal symptoms. NRT is available as: ?Qbra-zin-punbrhw gums, lozenges, and skin patches. ?Prescription mouth [...] recovery for many people. General instructions Take lgtf-jwk-apfuwpc and prescription medicines only as told by your health care provider. Check with your health care provider before taking any new prescription or zwxw-tgw-byvbrie medicines. Decide on a friend, family member, or smoking quit-line (such as 5-492-ZOMW-NOW in the [place] that you can call [...] 05/06/2005 Document Revised: 08/18/2018 Document Reviewed: 08/18/2018 [employer]Jam Patient Education 2020 [employer]. 07/21/2022 11:21:55 BMI for Adults BMI for [...] height. This can be done either in Indonesian ([place] or metric measurements. Note that charts are available to help you find your BMI quickly and easily without having to do these calculations yourself. To calculate your BMI in Indonesian ([place] measurements, your health care provider will: [...] medical problems. BMI can be measured using Indonesian measurements or metric measurements. To interpret your [...] 05/12/2005 Document Revised: 08/13/2018 Document Reviewed: 07/14/2018 [employer] Patient Education 2020 [employer]. 07/21/2022 11:21:53 Leukocytosis Leukocytosis Leukocytosis means that [...] Follow these instructions at home: Medicines Take uhao-gjr-szyuaoy and prescription medicines only as told by [...] 08/19/2012 Document Revised: 05/26/2019 Document Reviewed: 05/26/2019 [employer] Patient Education 2020 [employer] Follow Up Care 07/18/2022 10:46:12 With:Aimee Walker CNP Address: When: only if needed [facility] 11-04-2022 Miscellaneous Notes* Telephone Encounter - Cat Rojo LPN - 07/18/2022 11:04 AM EDT Call placed to patient, no answer. Left message for patient to proceed with nicotine testing prior to scheduling. Please transfer to plastic surgery nurse if patient returns call with questions. documented in this encounter[facility]08-30-2022 Evaluation + Plan note Future Scheduled Tests Radiology* MRI Breast w/o and w/ Contrast, Left 05/13/22 * MA Mamm Screen w/CAD if perf and 3D Tanmay 04/21/22 [facility] General Surgery [place] 08-30-2022 Hospital Discharge instructions Patient Education 05/13/2022 [...] ?Hypothyroidism. ?Polycystic ovarian syndrome (PCOS). ?Binge-eating disorder. ?Cherryfield syndrome. Taking certain medicines, such as steroids, [...] and how much exercise you get. Take hmiu-dzs-nhgynty and prescription medicines only as told by [...] 10/08/2005 Document Revised: 05/05/2019 Document Reviewed: 05/05/2019 Elsevier Patient Education 2020 [employer]. [facility] General Surgery [place] [id number] Evaluation + Plan note Future Scheduled Tests Radiology* MA Mamm Screen w/CAD if perf and 3D Tanmay 04/21/22 [facility] Hospital Discharge instructions Patient Education 04/21/2022 [...] height. This can be done either in Indonesian ([place] or metric measurements. Note that charts are available to help you find your BMI quickly and easily without having to do these calculations yourself. To calculate your BMI in Indonesian ([place] measurements, your health care provider will: [...] medical problems. BMI can be measured using Indonesian measurements or metric measurements. To interpret your [...] 05/12/2005 Document Revised: 08/13/2018 Document Reviewed: 07/14/2018 [employer] Patient Education 2020 [employer]. 04/21/2022 10:14:51 Lymphadenopathy Lymphadenopathy Lymphadenopathy means that [...] at home: Get plenty of rest. Take cpph-nfe-mkpsusr and prescription medicines only as told by your health care provider. Your health care provider may recommend ksqg-ppb-rcbaazt medicines for pain. If directed, apply heat [...] 06/09/2009 Document Revised: 08/13/2018 Document Reviewed: 07/16/2018 [employer] Patient Education 2020 [employer]. 04/21/2022 10:14:49 Tobacco Use Disorder Tobacco Use [...] reduces withdrawal symptoms. NRT is available as: ?Ulwp-obb-maatyze gums, lozenges, and skin patches. ?Prescription mouth [...] recovery for many people. General instructions Take drmu-iax-tcxxauj and prescription medicines only as told by your health care provider. Check with your health care provider before taking any new prescription or qxat-cce-rrpmaui medicines. Decide on a friend, family member, or smoking quit-line (such as 8-531-YJTB-NOW in the [place] that you can call [...] 05/06/2005 Document Revised: 08/18/2018 Document Reviewed: 08/18/2018 [employer] Patient Education 2020 [employer]. Follow Up Care 04/17/2022 09:51:05 With:Aimee Walker CNP Address: When: only if needed [facility] 08-07-2022 Hospital Discharge instructions [...] at home: Get plenty of rest. Take yfvf-ccr-wizkcia and prescription medicines only as told by your health care provider. Your health care provider may recommend jalk-hmx-fqugezu medicines for pain. If directed, apply heat [...] 06/09/2009 Document Revised: 08/13/2018 Document Reviewed: 07/16/2018 [employer] Patient Education 2020 [employer]. Follow Up Care 04/20/2022 14:55:22 With:Aimee Walker Address: [facility] [address], [facility] [place] [address] [phone] Business (1) When:04/23/2022 16:08:48 Comments:Follow-up with your primary care provider in 3 to 5 days. If symptoms worsen, do not improve, or new symptoms arise please report back to emergency department for further evaluation. [facility]08-07-[facility]22 Evaluation + Plan noteExtracted from: Title:ED Note Author:Dony Alegre PA-C te:04/20/22 Axillary lymphadenopathy (R5 9.0: Localized enlarged lymph nodes) Orders: naproxen, 500 mg = 1 tab(s), Oral, BID, PRN for pain, # 20 tab(s), Refills(s) 0, Pharmacy: [facility]/pharmacy #[id number], 170, cm, 04/20/22 15:01:00 EDT, Height/Length Dosing, 81.5, kg, 04/20/22 15:01:00 EDT, Weight Dosing Automated Diff Basic Metabolic Panel CBC w/ Auto Diff eGFR XR Chest 2 Views Future Appointments Appointment Date:04/21/2022 09:40:00 AM Scheduled Provider:Aimee Walker CNP Location:[facility] Appointment Type: Open [facility] Hospital Discharge instructions Patient Education 04/03/2022 [...] 03/15/2012 Document Revised: 08/24/2019 Document Reviewed: 08/24/2019 [employer]Jam Patient Education 2020 [employer]. Follow Up Care 04/03/2022 16:59:04 With:Aimee Walker CNP Address: [phone] When:04/06/2022 [facility]-17[facility]22 Miscellaneous Notes* Telephone Encounter - Lina Chavez RN - 02/28/2022 3:[address] Mckee, patient must be 4 weeks nicotine free prior to scheduling and collection of cosmetic payment. documented in this encounterSumma Health06-01-2022 History of Present illness Narrative* Amee Gonzalez PA-C - 02/12/2022 10:38 AM EDT Images from the original note were not included. Otolaryngology Consultation/Evaluation Note Head and Neck Keiser ASSESSMENT: Burning tongue (primary encounter diagnosis) Irritation [...] Take 40 mg by mouth once daily. cdcxezhhpyfa-gcv-uopy-FA-vit K (BARIATRIC MULTIVITAMINS) 45 mg iron- 800 [...] and tender to palpation specifically around b/l [place]'s ducts and frenulum. Ventral aspect of tongue [...] Level: 3 - Low documented in this encounterSumma Health05-26-2022 Hospital Discharge instructions Patient Education 02/06/2022 09:33:48 [...] reduces withdrawal symptoms. NRT is available as: ?Abmq-uzu-znabori gums, lozenges, and skin patches. ?Prescription mouth [...] recovery for many people. General instructions Take bmkv-gif-ivhawcp and prescription medicines only as told by your health care provider. Check with your health care provider before taking any new prescription or mdwv-xoi-gvzxvby medicines. Decide on a friend, family member, or smoking quit-line (such as 0-466-NUVD-NOW in the [place] that you can call [...] 05/06/2005 Document Revised: 08/18/2018 Document Reviewed: 08/18/2018 [employer]Jam Patient Education 2020 [employer]. 02/06/2022 09:33:46 BMI for Adults BMI for [...] height. This can be done either in Indonesian ([place] or metric measurements. Note that charts are available to help you find your BMI quickly and easily without having to do these calculations yourself. To calculate your BMI in Indonesian ([place] measurements, your health care provider will: [...] medical problems. BMI can be measured using Indonesian measurements or metric measurements. To interpret your [...] 05/12/2005 Document Revised: 08/13/2018 Document Reviewed: 07/14/2018 [employer]Jam Patient Education 2020 [employer]. Follow Up Care 02/05/2022 13:43:34 With:Aimee Walker CNP Address: When: only if needed [facility] 05-18-2022 Hospital Discharge instructions [...] height. This can be done either in Indonesian ([place] or metric measurements. Note that charts are available to help you find your BMI quickly and easily without having to do these calculations yourself. To calculate your BMI in Indonesian ([place] measurements, your health care provider will: [...] medical problems. BMI can be measured using Indonesian measurements or metric measurements. To interpret your [...] 05/12/2005 Document Revised: 08/13/2018 Document Reviewed: 07/14/2018 [employer]Jam Patient Education 2020 [employer]. 01/29/2022 11:02:54 Complicated Grief Complicated Grief Grief [...] friends and loved ones. General instructions Take xdcd-rgo-tqahwkh and prescription medicines only as told by [...] 08/31/2006 Document Revised: 08/13/2018 Document Reviewed: 06/16/2018 StyleJam Patient Education 2020 [employer] 01/29/2022 11:02:50 Alcohol Abuse and Dependence Information, [...] to find support Your health care provider. Thought[employer]zz: www.[employer] Exchange[employer]Exegyy.org Therapy and support groups Local treatment centers or chemical dependency counselors. Local AA groups in your community: www.aa.org Where to find more information Centers for Disease Control and Prevention: www.cdc.gov National Keiser on Alcohol Abuse and Alcoholism: www.niaaa.nih.gov Alcoholics [...] 08/25/2017 Document Revised: 12/20/2019 Document Reviewed: 11/08/2019 [employer]Jam Patient Education 2019 [employer]. 01/29/2022 11:02:46 Managing Bipolar Disorder Managing Bipolar [...] Follow these instructions at home: Medicines Take qlwt-emh-smklmgt and prescription medicines only as told by your health care provider or pharmacist. Ask your pharmacist what egth-wec-vxwzsah cold medicines you should avoid. Some medicines [...] search for a local or [facility] mental health care center. Public [...] 12/31/2017 Document Revised: 12/23/2019 Document Reviewed: 12/31/2017 [employer]Jam Patient Education 2019 [employer]. [facility] 05-02-2022 Miscellaneous Notes* Telephone [...] they would pay for the panniculectomy verses atduncan [employer]. Patient was wondering if she had the panniculectomy with lipo and the bellybutton. How much would that be for her out of pocket? Patient states that if she needed to come in for another consult she would. Please advise at [phone] documented in this encounterSumma Health04-15-2022 Miscellaneous Notes* Telephone Encounter - Rocio Hester [...] understood. Rocio Hester Ma documented in this encounterSumma Health05-21-2021 History of Present illness Narrative* Radha Jara - 02/01/2021 9:47 AM EDT CLINICAL PHARMACY NOTE: MEDS TO BEDS Total # of Prescriptions Filled: 2 The following medications were delivered to the patient: Percocet 5-325mg Augmentin 875-125mg Additional Documentation: delivered to patient in room 236 02/01 at 9:44am. Co- pay paid with credit on [employer] ($4.31). * Gamaliel Vickers DO - 01/31/2021 [...] Advance diet Overall improvement * Melissa Singh [facility] - 01/30/2021 9:03 PM EDT Images [...] rate of 12.5ml/hr. Thank You, Melissa Singh [facility] :00 PM documented in this encounterERUCES Phone: [phone]) 569-316305-15-2021 History of Present illness Narrative* Jasmine Burch RN - 01/26/2021 1:51 PM EDT Infusion complete, no complications, IV out and dressing applied. Encouraged patient to call with any questions. Patient left unit with steady gait to private residence. documented in this encounterERUCES Phone: 1(237) 138-505804-27-2021 History of Present illness Narrative* Radha Jara - 01/08/2021 5:59 PM EDT CLINICAL PHARMACY NOTE: MEDS TO [facility] Patient?: No Total # of Prescriptions Filled: 3 The following medications were delivered to the patient: Percocet 5-325mg Promethazine 25mg Pantoprazole 40mg Total # of Interventions Completed: 0 Time Spent (min): 0 Additional Documentation: delivered to patient in room 247 01/08 at 5:43pm. Co- pay paid with [employer] ($7.02). * Gal Atwood, DO - 01/08/2021 [...] Morbid obesity with BMI of 40.0-44.9, adult ([facility]) [E66.01, Z68.41] 05/16/2020 30 y.o. female [...] OR 01-07-21 documented in this [facility] [employer] Phone: 1(712) 685-494404-27-2021 Hospital Discharge instructions* Instructions* Gamaliel Vickers DO - 01/08/2021 Discharge Instructions for Surgery You had a Tian-en- Y Gastric Bypass (59881) surgery to treat obesity. Recovery from this [...] scheduled appointment, please call the office at [phone]. Call Your Doctor If Any of the [...] emergency, call 911 immediately. documented in this [facility] Phone: 1(535) 788-242204-12-2021 Hospital Discharge instructions* Instructions* Mahesh Price APRN - TRAFFIC CHIEF - 12/24/2020 Images from the original note [...] drive you home after your procedure. Your straight truck driver must be 18 years of [...] questions, call the Pre-Admission Testing Unit at [phone]. Day of Surgery/Procedure As a patient at [facility] you can expect quality medical and nursing care that is centered on your individual needs. Our goal is to make your surgical experience as comfortableas possible . Directions to the Surgery Center [facility] is located at [address] [place] [address]. Please pull into the Emergency parking lot and stop at the codetag arcos. We offer free codetag service for all our surgery patients, if you choose not to have acid tender parking we have additional parking across the street.You will enter the facility following the [facility] sign. Please stop at the medical records receptionist desk where you will be checked in by the staff. If you have any questions please call [phone]. Transportation after your procedure. You will need a friend or family member to drive you home after your procedure. Your straight truck driver must be18 years of age [...] You may shave your face or neck. [place] your teeth but do not swallow water. [...] or the day of surgery, please call [phone], or [phone] documented in this [facility] Work Phone: [phone]) 361-209404-12-2021 History of Present illness Narrative* Mahesh Price APRN - TRAFFIC CHIEF - 12/24/2020 10:30 AM EDT Anesthesia Focused [...] Anxiety Arthritis knees and back Bipolar disorder ([facility]) 11/25/[address]. Jacki Nicole for therapy Borderline personality disorder ([facility]) [facility], therapist Jacki Nicole Depression Flat feet, bilateral Foot pain, bilateral Dr. Octavoi Sims, nursery worker GERD (gastroesophageal reflux disease) managed by Dr. Vickers Obesity Patient was evaluated in [facility] & anesthesia guidelines were applied. NPO [...] BLEVINS 12/24/20 11:38 AM documented in this [facility] Work Phone: evaluation + Plan note No data available for this section [facility] Evaluation + Plan note Referrals to Other Providers Referred by: Aimee Walker CNP [facility] Evaluation + Plan note Future Appointments Appointment Date:04/04/2022 02:40:00 PM Scheduled Provider:Rahul Salinas DO Location:[facility] Future Appointments Appointment Date:04/22/2022 09:15:00 AM Scheduled Provider: Location:.MAMMOGRAM Appointment Type:MA Diagnostic () Appointment Date:04/22/2022 10:00:00 AM Scheduled Provider: Location:FT.ULTRASOUND Appointment Type:US Breast (FT) Future Scheduled Tests Radiology* US Breast Unilateral Lt Complete 04/21/22 * US Breast Unilateral Rt Complete 04/21/22 * MA Mamm Diag w/CAD if perf and 3D Tanmay 04/22/22 * MA Mamm Screen w/CAD if perf and 3D Tanmay 04/21/22 [facility] Evaluation + Plan note Future Appointments Appointment Date:08/22/2022 10:20:00 AM Scheduled Provider:Rahul Salinas DO Location:[facility] Appointment Type: Hospital Follow Up w/TCM Future Scheduled Tests Laboratory* CBC w/ Auto Diff 07/21/22 Radiology* MA Mamm Screen w/CAD if perf and 3D Tanmay 04/21/22 [facility] Future Appointments Appointment Date:11/03/2022 01:00:00 PM Scheduled Provider:Nakia Shah Location:[facility] Appointment Type: Open Future Scheduled Tests Laboratory* CBC w/ Auto Diff 07/21/22 Radiology* MA Mamm Screen w/CAD if perf and 3D Tanmay 04/21/22 [facility] Future Appointments Appointment Date:01/02/2023 10:00:00 AM Scheduled Provider:Nakia Shah Location:[facility] Appointment Type: Open Future Scheduled Tests Laboratory* CBC w/ Auto Diff 07/21/22 Radiology* MA Mamm Screen w/CAD if perf and 3D Tanmay 04/21/22 [facility] Evaluation + Plan note Future Appointments Appointment Date:12/05/2022 09:00:00 AM Scheduled Provider: Location:[facility] Appointment Type:Surgery FT Appointment Date:01/02/2023 10:00:00 AM Scheduled Provider:Nakia Shah Location:[facility] Appointment Type: Open Future Scheduled Tests Laboratory* CBC w/ Auto Diff 07/21/22 Radiology* MA Mamm Screen w/CAD if perf and 3D Tanmay 04/21/22 [facility] Future Appointments Appointment Date:12/25/2023 10:15:00 AM Scheduled Provider:Otto Larsen MD Location:FT.Cardiology Clinic Appointment Type:Cardiology New Patient ([facility] Future Appointments Appointment Date:11/10/2024 08:00:00 AM Scheduled Provider: Location:.ULTRASOUND Appointment Type:US Abdominal/Pelvis (FT) Future Scheduled Tests Radiology* US Abdomen, Limited 11/10/24 [facility] Evaluation + Plan note Future Appointments Appointment Date:11/15/2024 01:45:00 PM Scheduled Provider:Orlando Kate PA-C Location:FT.Pain Mgmt [place] Appointment Type:Pain Management - New (FT) [facility] evaluation + Plan note Future Appointments Appointment Date:12/19/2024 10:15:00 AM Scheduled Provider:Orlando Kate PA-C Location:FT.Pain Mgmt [place] Appointment Type:Pain Management - Follow Up (FT) [facility] [employer] Keyboardyolyation + Plan note Future Appointments Appointment Date:01/24/2025 09:30:00 AM Scheduled Provider: Location:[facility] Appointment Type:Surgery FT Appointment Date:01/27/2025 10:15:00 AM Scheduled Provider:Orlando Kate PA-C Location:FT.Pain Mgmt [place] Appointment Type:Pain Management - Follow Up (FT) [facility] evaluation + Plan note Future Appointments Appointment Date:02/13/2025 08:30:00 AM Scheduled Provider: Location:[facility] Appointment Type:Surgery FT Appointment Date:02/15/2025 01:30:00 PM Scheduled Provider:Orlando Kate PA-C Location:FT.Pain Mgmt [place] Appointment Type:Pain Management - Follow Up (FT) Appointment Date:02/16/2025 01:00:00 PM Scheduled Provider:Jak Peace MD Location:FT.Cardiology Clinic Appointment Type:Cardiology New Patient (FT) [facility] evaluation + Plan note Future Appointments Appointment Date:02/17/2025 09:15:00 AM Scheduled Provider: Location:[facility] Appointment Type:Surgery FT Appointment Date:02/20/2025 02:30:00 PM Scheduled Provider:Orlando Kate PA-C Location:.Pain [facility] Appointment Type:Pain Management - Follow Up (FT) Appointment Date:03/16/2025 02:30:00 PM Scheduled Provider:Jak Peace MD Location:.Cardiology Clinic Appointment Type:Cardiology Follow Up (FT) Future Scheduled Tests Radiology* NM Myocardial Spect Rest/Stress 1 Day 02/16/25 [facility] evaluation + Plan note Future Appointments Appointment Date:03/13/2025 11:30:00 AM Scheduled Provider: Location:.[facility] MED Appointment Type:NM Myocard Spect Multi Rest/Stress-Res Appointment Date:03/13/2025 12:30:00 PM Scheduled Provider: Location:.[facility] Appointment Type:NM Myocard Spect Multi Rest/Stress - R Appointment Date:03/13/2025 01:00:00 PM Scheduled Provider: Location:.[facility] Appointment Type:NM Myocard Spect Multi Rest/Stress-Str Appointment Date:03/13/2025 02:00:00 PM Scheduled Provider: Location:.[facility] Appointment Type:NM Myocar Spect Multi Rest/Stress - St Appointment Date:03/16/2025 02:30:00 PM Scheduled Provider:Jak Peace MD Location:FT.Cardiology Clinic Appointment Type:Cardiology Follow Up (FT) Future Scheduled Tests Radiology* NM Myocardial Spect Rest/Stress 1 Day 03/13/25 [facility] Evaluation + Plan note Future Appointments Appointment Date:03/03/2025 08:30:00 AM Scheduled Provider: [facility] Type:Surgery FT Appointment Date:03/09/2025 12:30:00 PM Scheduled Provider:Babar Mayers DO Location:.Pain [facility] Appointment Type:Pain Management - Follow Up (FT) Appointment Date:03/13/2025 11:30:00 AM Scheduled Provider: Location:.[facility] Appointment Type:NM Myocard Spect Multi Rest/Stress-Res Appointment Date:03/13/2025 12:30:00 PM Scheduled Provider: Location:.[facility] MED Appointment Type:NM Myocard Spect Multi Rest/Stress - R Appointment Date:03/13/2025 01:00:00 PM Scheduled Provider: Location:.[facility] MED Appointment Type:NM Myocard Spect Multi Rest/Stress-Str Appointment Date:03/13/2025 02:00:00 PM Scheduled Provider: Location:.[facility] MED Appointment Type:NM Myocar Spect Multi Rest/Stress - St Appointment Date:03/16/2025 02:30:00 PM Scheduled Provider:Jak Peace MD Location:FT.Cardiology Clinic Appointment Type:Cardiology Follow Up (FT) Future Scheduled Tests Radiology* NM Myocardial Spect Rest/Stress 1 Day 03/13/25 [facility] evaluation + Plan note Future Appointments Appointment Date:03/27/2025 08:45:00 AM Scheduled Provider: Location:[facility] Appointment Type:Surgery FT Appointment Date:04/17/2025 08:00:00 AM Scheduled Provider: Location:.[facility]CLE[facility] MED Appointment Type:NM Myocard Spect Multi Rest/Stress-Res Appointment Date:04/17/2025 09:00:00 AM Scheduled Provider: Location:.[facility] MED Appointment Type:NM Myocard Spect Multi Rest/Stress - R Appointment Date:04/17/2025 09:30:00 AM Scheduled Provider: Location:.NUCLE[facility] MED Appointment Type:NM Myocard Spect Multi Rest/Stress-Str Appointment Date:04/17/2025 10:30:00 AM Scheduled Provider: Location:.NUCLE[facility] MED Appointment Type:NM Myocar Spect Multi Rest/Stress - St Appointment Date:05/02/2025 08:15:00 AM Scheduled Provider:Orlando Kate PA-C Location:.Pain [facility] Appointment Type:Pain Management - Follow Up (FT) Future Scheduled Tests Radiology* NM Myocardial Spect Rest/Stress 1 Day 04/17/25 [facility] Evaluation note* Diagnosis Preop testing- Primary Preoperative examination, unspecified documented in this encounter [employer] Work Phone: evaluation note* Diagnosis Post-op pain- Primary Other acute postoperative pain Status post gastric bypass for obesity Bariatric surgery status Morbid obesity with BMI of 40.0-44.9, adult (HCC) Hiatal hernia Diaphragmatic hernia without mention of obstruction or gangrene documented in this encounter ERUCES Phone: [email or web address] note* Diagnosis Dehydration documented in this encounter ER[facility] Phone: [email or web address] note* Diagnosis Generalized abdominal pain- Primary Abdominal pain, generalized documented in this encounter ER[facility] Phone: [email or web address] note* Diagnosis Surgery, elective- Primary Unspecified elective surgery for purposes other than remedying health states Omental infarction (HCC) Acute vascular insufficiency of intestine Intra-abdominal abscess (HCC) Peritoneal abscess documented in this encounter ERUC[facility] Phone: [email or web address] note* Diagnosis Omental infarction (HCC) Acute vascular insufficiency of intestine documented in this encounter ERUC[employer] Phone: evaluation note* Diagnosis Hypertrophy of breast- Primary Upper back pain Excess skin [facility] encounter [facility]* Diagnosis Burning tongue- Primary Glossodynia Irritation of oral cavity Other and unspecified diseases of the oral soft tissues documented [facility] this encounter [facility]* Diagnosis Onset Date Resolution Status Bipolar 1 disorder acute Blurry vision acute Borderline personality disorder acute Headache acute MDD (major depressive disorder) acute Palpitation acute [facility] Work Phone: Evaluation note* Diagnosis Idiopathic intracranial hypertension- Primary Benign intracranial hypertension Depression, unspecified depression type Primary hypertension Unspecified essential hypertension Hx of gastric bypass Bariatric surgery status H/O foot surgery Personal history of surgery to other organs documented in this encounter [facility] Work Phone: Evaluation noteNo InformationNort TownHog Other Evaluation note* Diagnosis Panic disorder- Primary Panic disorder without agoraphobia Borderline personality disorder (HCC) Borderline personality disorder Bipolar affective disorder in remission (HCC) Chronic alcoholism in remission (HCC) Other and unspecified alcohol dependence, in remission Routine health maintenance Routine general medical examination at a health care facility documented in this encounter [facility]* Diagnosis Panic disorder- Primary Panic disorder without agoraphobia [facility]* Diagnosis Routine health maintenance- [...] disorder, unspecified type [facility]* Diagnosis 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 documented in this [facility]* Diagnosis Idiopathic intracranial hypertension Benign intracranial hypertension [facility] Diagnosis Chest pain, unspecified type- Primary Palpitations Bipolar affective disorder in remission (HCC) History of substance abuse (HCC) Other, mixed, or unspecified nondependent drug abuse, unspecified Borderline personality disorder (HCC) Borderline personality disorder Serum calcium elevated Hypercalcemia [facility]* Diagnosis Mass of upper outer quadrant of left breast documented [facility]* Diagnosis Abnormal mammogram- Primary Abnormal mammogram, unspecified Mass of upper outer quadrant of left breast Fibrocystic breast changes of both breasts Mastodynia Inversion of left nipple Bloody discharge from left nipple Other sign and symptom in breast Nipple discharge Other sign and symptom in breast Mass of upper outer quadrant of left breast [facility]* Diagnosis Abnormal mammogram of left breast [facility]* Diagnosis Bipolar affective disorder in remission (HCC)- Primary Borderline personality disorder (HCC) Borderline personality disorder Anxiety disorder, unspecified type Chest pain, unspecified type Iron deficiency anemia, unspecified iron deficiency anemia type [facility]* Diagnosis Angina pectoris Other and unspecified angina pectoris Shortness of breath Palpitations Family history of ischemic heart disease Primary hypertension Unspecified essential hypertension Current smoker BMI 29.0-29.9,adult documented in this encounter [facility] Work Phone: Evaluation note* Diagnosis Bipolar affective disorder in remission (HCC) Borderline personality disorder (HCC) Borderline personality disorder Anxiety disorder, unspecified type [facility]* Diagnosis Angina pectoris Other and unspecified angina pectoris Shortness of breath Palpitations Family history of ischemic heart disease Primary hypertension Unspecified essential hypertension documented in this encounter [facility] Work Phone: Evaluation note* Diagnosis Ataxia- Primary Lack of coordination Myalgia Unspecified myalgia and myositis documented in this encounter [facility]* Diagnosis Myalgia Unspecified myalgia and myositis documented in this encounter [facility] Healthcare[facility] note* Diagnosis Bipolar affective disorder in remission (HCC) Borderline personality disorder (HCC) Borderline personality disorder Anxiety disorder, unspecified type documented in this encounter [facility] general Narrative - Reported* Type Description Date Medical History plantar fasciitis Medical History migraine headache Medical History borderline personality disorder Medical History chronic depression Medical History bipolar Surgical History C section Surgical History c section Surgical History tubal ligation Surgical History HYSTERECTOMY Surgical History oral surgery Surgical History gastric bypass Hospitalization History mental health issues [facility] [employer] Other [facility] general Narrative - Reported* Type Description Date Medical History plantar fasciitis Medical History migraine headache Medical History borderline personality disorder Medical History chronic depression Medical History bipolar Surgical History C section Surgical History c section Surgical History tubal ligation Surgical History HYSTERECTOMY Surgical History oral surgery Surgical History gastric bypass Hospitalization History mental health issues Hospitalization History [facility] - hysterectomy 11/13 023 [facility]R Other Hospital Discharge instructions No data available for this section [facility] Discharge instructions Additional Instructions Follow-up with your PCP and neurology Rest Push fluids Tylenol or Motrin if needed for pain Return here if any problems persist [facility] Work Phone: Progress note No data available for this section [facility] Outpatient Procedure (Routine) - New Request Specialty Diagnoses / Procedures Referred By Simona bailey Referred To [facility] Diagnoses Chest pain, unspecified type Palpitations Procedures ECG COMPLETE ECG ROUTINE ECG W/LEAST 12 LDS W/I&[place] [address] [place] [address] [facility] [address] [place] [address] Referral ID Status Reason Start Date Expiration Date Visits Requested Visits Authorized [id number] New Request Auto-Generat ed Referral 07/01/2025 1 1 [facility] for referral (narrative)* Diagnostic Procedure Only (Routine) - Closed Specialty Diagnoses / Procedures Referred By Contac t Referred To Contact BR IMAGING Diagnoses Abnormal mammogram of left breast Procedures US BIOPSY BREAST LEFT BX BREAST W/DEVICE 1ST LESION ULTRASOUND Abi Allen MD [address] [place] [id number] [facility] [address] [place] [address] Referral ID Status Reason Start Date Expiration Date V isits Requested Visits Authorized [id number] Closed Auto-Generate d Referral 07/05/2024 08/04/2025 1 1 [facility] for visit Narrative* Diagnostic Procedure Only (Routine) - Closed Specialty Diagnoses / Procedures Referred By Contac t Referred To Contact BR IMAG[facility] Diagnoses Abnormal mammogram of left breast Procedures US BIOPSY BREAST LEFT BX BREAST W/DEVICE 1ST LESION ULTRASOUND Abi Allen MD [address] [address] [facility] [address] [place] [address] Referral ID Status Reason Start Date Expiration Date V isits Requested Visits Authorized [id number] Closed Auto-Generate d Referral 07/05/2024 08/04/2025 1 1 [facility] for visit Narrative* Cardiovascular (Routine) - Authorized Specialty Diagnoses / Procedures Referred By Contac t Referred To Contact Cardiology Diagnoses Angina pectoris Shortness of breath Procedures ECG 12 Lead Aleah Howard MD [address] [address] Phone: tel: fax: Referral ID Status Reason Start Date Expiration Date V isits Requested Visits Authorized [id number] Authorized 08/08/2024 08/08/2025 1 1 [facility] Work Phone: Reason for visit Narrative* CV Imaging (Routine) - Authorized Specialty Diagnoses / Procedures Referred By Contac t Referred To Contact Cardiology Diagnoses Angina pectoris Shortness of breath Palpitations Family history of ischemic heart disease Primary hypertension Procedures Transthoracic Echo Complete FL ECHO TTHRC R-T 2D W/WOM-MODE COMPL SPEC&COLR D Aleah Howard MD [address] [address] Phone: tel: fax: Referral ID Status Reason Start Date Expiration Date Visits Requested Visits Authorized [id number] Authorized Perform Procedure 08/08/2025 1 1 [facility] Work Phone: Assessments Diagnosis Preoperative testing Preoperative examination, unspecified Diagnosis Gastroesophageal reflux disease with esophagitis without hemorrhage Advance Directives No Advanced Directives Records FoundDocuments on File Type Date Recorded 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 Oral Gamaliel Vickers DO [address] [facility] [address] [place] [address] Specialty Diagnoses / Procedures Referred By Contac t Referred To Contact Ophthalmology Diagnoses Idiopathic intracranial hypertension Procedures CONSULT TO OPHTHALMOLOGY OFFICE/OUTPATIENT [facility] 60-74 MINUTES Eileen Alvarez MD [address] [place] [address] Referral ID Status Reason Start Date Expiration Date Visits Requested Visits Authorized [id number] Authorized PCP Requested Referral 11/20/2022 11/20/2023 1 1 Specialty Diagnoses / Procedures Referred By Contac t Referred To Contact MR IMAGING Diagnoses Idiopathic intracranial hypertension Procedures MRV BRAIN WO/W IVCON MRA; HEAD W & WO CONTRAST Eileen Alvarez MD [address] [place] [address] Mr Imaging Referral ID Status Reason Start Date Expiration Date Visits Requested Visits Authorized [id number] Pending Review Auto-Generat ed Referral 11/20/2022 12/20/2023 1 1 Specialty Diagnoses / Procedures Referred By Contac t Referred To Contact MR IMAGING Diagnoses Mass of upper outer quadrant of left breast Procedures MRI BREAST BX WO/W IVCON LEFT BX BREAST W/DEVICE 1ST [place] [address] [place] [address] [place] [address] Referral ID Status Reason Start Date Expiration Date Visits Requested Visits Authorized [id number] Pending Review Auto-Generat ed Referral 03/08/2024 04/07/2025 1 1 Specialty Diagnoses / Procedures Referred By Contac t Referred To Contact Diagnoses Class 1 obesity due to excess calories without serious comorbidity with body mass index (BMI) of 30.0 to 30.9 in adult Procedures ENDOCRINE MEDICAL WEIGHT MANAGEMENT OFFICE/OUTPATIENT [facility] [address] [place] [address] [place] [address] Referral ID Status Reason Start Date Expiration Date Visits Requested Visits Authorized [id number] Authorized PCP Requested Referral 03/08/2024 03/08/2025 1 1 Specialty Diagnoses / Procedures Referred By Contac t Referred To Contact MR IMAGING Diagnoses Pancreas cyst Procedures MRI 3D POST PROCESSING 3D RENDERING W/INTERP&POSTPROC DIFF WORK STATION Leonela Aguirre MD [address] [place] [address] Mr Imaging [place] [facility] Referral ID Status Reason Start Date Expiration Date V isits Requested Visits Authorized [id number] Closed Auto-Generate d Referral 08/31/2023 09/29/2024 1 1 Specialty Diagnoses / Procedures Referred By Contac t Referred To Contact MR IMAGING Diagnoses Pancreas cyst Procedures MRI PANC/TANMAY WO/W IVCON MRI ABDOMEN W/O & W/CONTRAST MATERIAL Leonela Aguirre MD [address] [place] [address] Mr Imaging [place] [address] Referral ID Status Reason Start Date Expiration Date V isits Requested Visits Authorized [id number] Closed Auto-Generate d Referral 03/01/2024 03/31/2024 1 1 Specialty Diagnoses / Procedures Referred By Contac t Referred To Contact MR IMAGING Diagnoses Idiopathic intracranial hypertension Procedures MRV BRAIN WO/W IVCON MRA; HEAD W & WO CONTRAST Eileen Alvarez MD [address] [place] [address] Mr Imaging [place] [address] Referral ID Status Reason Start Date Expiration Date V isits Requested Visits Authorized [id number] Closed Auto-Generate d Referral 01/29/2023 02/28/2023 1 1 Specialty Diagnoses / Procedures Referred By Contac t Referred To Contact MR IMAGING Diagnoses Mass of upper outer quadrant of left breast Fibrocystic breast changes of both breasts Mastodynia Inversion of left nipple Bloody discharge from left nipple Nipple discharge Procedures MRI BREAST WO/W IVCON BILATERAL MRI BREAST WITHOUT&WITH CONTRAST W/CAD BILATERAL Fatuma Tyler APRN.TRAFFIC CHIEF [address] [place] [phone] Mr Imaging [place] [address] Referral ID Status Reason Start Date Expiration Date Visits Requested Visits Authorized [id number] Pending Review Auto-Generat ed Referral 08/03/2025 1 1 Specialty Diagnoses / Procedures Referred By Simona bailey Referred To Contact BR IMAGING Diagnoses Mass of upper outer quadrant of left breast Procedures US BREAST LTD LEFT US BREAST UNI REAL TIME WITH IMAGE LIMITED Fatuma Tyler APRN.TRAFFIC CHIEF [address] [place] [phone] [facility] [address] [place], [place] [id number] Referral ID Status Reason Start Date Expiration Date V isits Requested Visits Authorized [id number] Closed Auto-Generate d Referral 07/04/2024 09/13/2024 1 1 Specialty Diagnoses / Procedures Referred By Simona bailey Referred To Contact BR IMAGING Diagnoses Mass of upper outer quadrant of left breast Procedures LINDA DIAG W AV BILATERAL DIGITAL BREAST TOMOSYNTHESIS BILATERAL Fatuma Tyler APRN.TRAFFIC CHIEF [address] [place] [phone] [facility] [address] [place] [address] Referral ID Status Reason Start Date Expiration Date V isits Requested Visits Authorized [id number] Closed Auto-Generate d Referral 07/04/2024 09/13/2024 1 [...] and content) DATE CREATED AUTHOR 10/06/2020 [facility] DATE CREATED AUTHOR AUTHOR'S ORGANIZ ATION 01/06/2021 [facility] DATE CREATED AUTHOR AUTHOR'S ORGANIZ ATION 08/16/2022 [facility] DATE CREATED AUTHOR AUTHOR'S ORGANIZ ATION 11/15/2022 [facility] DATE CREATED AUTHOR AUTHOR'S ORGANIZ ATION 08/17/2023 [facility] DATE CREATED AUTHOR AUTHOR'S ORGANIZ ATION 09/04/2023 [facility] DATE CREATED AUTHOR AUTHOR'S ORGANIZ ATION 10/26/2023 [facility] DATE CREATED AUTHOR AUTHOR'S ORGANIZ ATION 03/12/2024 [facility] DATE CREATED AUTHOR AUTHOR'S ORGANIZ ATION 09/16/2024 [facility] DATE CREATED AUTHOR AUTHOR'S ORGANIZ ATION 09/25/2024 [facility] DATE CREATED AUTHOR AUTHOR'S ORGANIZ ATION 09/26/2024 [facility] DATE CREATED AUTHOR AUTHOR'S ORGANIZ ATION 09/30/2024 [facility] DATE CREATED AUTHOR AUTHOR'S ORGANIZ ATION 09/30/2024 [facility] dical [facility] DATE CREATED AUTHOR AUTHOR'S ORGANIZ ATION 10/19/2024 [facility] DATE CREATED AUTHOR AUTHOR'S ORGANIZ ATION 12/13/[address] [facility] DATE CREATED AUTHOR AUTHOR'S ORGANIZ ATION 01/29/2025 [facility] DATE CREATED AUTHOR AUTHOR'S ORGANIZ ATION 02/19/2025 [facility] DATE CREATED AUTHOR AUTHOR'S ORGANIZ ATION 03/05/2025 [facility] DATE CREATED AUTHOR AUTHOR'S ORGANIZ ATION 03/17/2025 [facility] DATE CREATED AUTHOR AUTHOR'S ORGANIZ ATION 04/02/2025 [facility] DATE CREATED AUTHOR AUTHOR'S ORGANIZ ATION 04/05/2025 [facility] y[facility] Reason for Visit (unrecogniz ed section and content) Status Reason Specialty Diagnoses / Procedures Re ferred By Contact Referred To Contact Diagnoses GERD (gastroesophageal reflux disease) GERD/OBESITY Procedures FL ESOPHAGOGASTRODUODENOSCOPY TRANSORAL DIAGNOSTIC EGD ESOPHAGOGASTRODUODENOSCOPY Gamaliel Vickers DO [address] [facility] [address] [place] [address] [employer] Status Reason Specialty Diagnoses / Procedures Referre d By Contact Referred To Contact Closed Radiology Diagnoses Gastro-esophageal reflux disease with esophagitis, without bleeding Procedures CHG RADIOLOGIC EXAM UPR GI TRC SINGLE CONTRAST STUDY Gamaliel Vickers DO [address] [place] [address] [facility] Radiology [address] [place] [id number] Status Reason Specialty Diagnoses / Procedures Referre d By Contact Referred To Contact Diagnoses Morbid obesity (HCC) GERD (gastroesophageal reflux disease) MORBID OBESITY, GERD Procedures FL LAP GASTRIC BYPASS/TIAN-EN-Y XI LAPAROSCOPIC ROBOTIC GASTRIC BYPASS TIAN-EN-Y, LIVER BIOPSY, EGD- GI UNIT SCHEDULED. Gamaliel Vickers DO [address] [place] [address] [employer] Reason Comments Abdominal Pain Diffuse cramping and bloating. Onset 2 days ago. Pt reports she is 3.5weeks post Gastric bypass. Last BM this AM Reason Comments Abdominal Pain possible abscess Status Reason Specialty Diagnoses / Procedures Referre d By Contact Referred To Contact Diagnoses Intra-abdominal abscess (HCC) Omental infarction (HCC) Gamaliel Vickers DO [address] [facility] [address] [place] [phone] [facility] Status Reason Specialty Diagnoses / Procedures Referre d By Contact Referred To Contact Closed Radiology Diagnoses Omental infarction (HCC) Procedures CT ABDOMEN PELVIS W IV CONTRAST Additional Contrast? Oral Gamaliel Vickers DO [address] [facility] [address] [place] [phone] Reason Comments Orders Reason Comments Patient Question [...] MM DIAM EGD BIOPSY Gamaliel Vickers DO [address] [facility] [address] [place] [address] [facility] [address] [place] [address] Referral ID Status Reason Start Date Expiration Date Visits Re quested Visits Authorized [id number] 1 1 Reason Comments Establish Care Panic [...] W/O & W/CONTRAST MATERIAL Leonela Aguirre MD [address] [place] [address] Mr Imaging [place] [address] Referral ID Status Reason Start Date Expiration Date V isits Requested Visits Authorized [id number] Closed Auto-Generate d Referral 03/01/2024 03/31/2024 1 1 Reason Onset Date Comments ACSu LAN RN 05/30/2024 ED Utilizatio n review per request of payer Specialty Diagnoses / Procedures Referred By Contac t Referred To Contact MR IMAGING Diagnoses Idiopathic intracranial hypertension Procedures MRV BRAIN WO/W IVCON MRA; HEAD W & WO Eileen Dang MD [address] [place] [id number] Mr Imaging [place] [address] Referral ID Status Reason Start Date Expiration Date V isits Requested Visits Authorized [id number] Closed Auto-Generate d Referral 01/29/2023 02/28/2023 1 1 Reason Comments Establish Care Anxiety is getting b ad On/off chest pain ,Rapid HR, trouble in sleeping, body aches, BP elevated , light headed dizzy, blurry vision, trouble eating or drinking can't stop eating Reason Comments Radiology Mammogram Specialty Diagnoses / Procedures Referred By Contac t Referred To Contact BR IMAGING Diagnoses Mass of upper outer quadrant of left breast Procedures LINDA DIAG W VA BILATERAL DIGITAL BREAST TOMOSYNTHESIS BILATERAL Fatuma Tyler, CEDRIC.TRAFFIC CHIEF [address] [place] [address] Br Imaging [address] [place] [address] Referral ID Status Reason Start Date Expiration Date V isits Requested Visits Authorized [id number] Closed Auto-Generate d Referral 07/04/2024 09/13/2024 1 [...] Date Comments Population Health Navigation Outreach 10/17/2024 Mauricio Phan Ordered Prescriptions (unrec ognized section and [...] 3,375 mg, Intravenous, ONCE, 1 dose, On 01/30/21 at 1415 1426 (New Bag - Prov [...] 1 dose 1142 (Given - Provid er: [facility]) iopamidol (ISOVUE-370) 76 % injection 75 mL (COMPLETED) 75 mL, Intravenous, IMG ONCE PRN, Other, Starting on Thu01/30/21 at 1137, For 1 dose 1142 (Given - Provid er: [facility]) Scheduled Medication Order 01/30/2021 01/31/2021 02/01/2021 0.9 % sodium chloride bolus (COMPLETED) 1,000 mL (8.96 mL/kg), Intravenous, at 1,000 mL/hr, Administer over 1 Hours, ONCE, On Thu01/30/21 at 1715, For 1 dose 1708 (New Bag - Provider: Orlando Guevara, MARCO)1901 (Stopped - Provider: Orlando Guevara RN) enoxaparin [...] Carter RN)1257 (New Bag - Provider: Wei Carter, MARCO)1632 (Stopped - Provider: Wei Carter, MARCO)2032 (New Bag - Provider: Rita Klein, MARCO) 0030 (Stopped - Provider: Rita Klein, MARCO)0559 (New Bag - Provider: Rita Klein RN)0959 (Due: Stopped - Provider: Rtia Klein RN)1315 (Due)2115 (Due) sodium chloride flush [...] Rita Klein RN)0832 (Given - Provider: Bonnie Ruiz, MARCO) [...] or prosecute any alcohol or drug abuse patient.[facility] HealthIn the event this information is protected by the Federal Confidentiality of Alcohol and Drug Abuse Patient Records regulations: The Federal rules restrict any use of the information to criminally investigate or prosecute any alcohol or drug abuse patient.[facility] HealthIn the event this information is protected by the Federal Confidentiality of Alcohol and Drug Abuse Patient Records regulations: The Federal rules restrict any use of the information to criminally investigate or prosecute any alcohol or drug abuse patient.[facility] HealthIn the event this information is protected by the Federal Confidentiality of Alcohol and Drug Abuse Patient Records regulations: The Federal rules restrict any use of the information to criminally investigate or prosecute any alcohol or drug abuse patient.[facility] HealthIn the event this information is protected by the Federal Confidentiality of Alcohol and Drug Abuse Patient Records regulations: The Federal rules restrict any use of the information to criminally investigate or prosecute any alcohol or drug abuse patient.[facility] HealthIn the event this information is protected by the Federal Confidentiality of Alcohol and Drug Abuse Patient Records regulations: The Federal rules restrict any use of the information to criminally investigate or prosecute any alcohol or drug abuse patient.[facility] HealthIn the event this information is protected by the Federal Confidentiality of Alcohol and Drug Abuse Patient Records regulations: The Federal rules restrict any use of the information to criminally investigate or prosecute any alcohol or drug abuse patient.[facility] HealthIn the event this information is protected by the Federal Confidentiality of Alcohol and Drug Abuse Patient Records regulations: The Federal rules restrict any use of the information to criminally investigate or prosecute any alcohol or drug abuse patient.[facility] HealthIn the event this information is protected by the Federal Confidentiality of Alcohol and Drug Abuse Patient Records regulations: The Federal rules restrict any use of the information to criminally investigate or prosecute any alcohol or drug abuse patient.[facility] HealthIn the event this information is protected by the Federal Confidentiality of Alcohol and Drug Abuse Patient Records regulations: The Federal rules restrict any use of the information to criminally investigate or prosecute any alcohol or drug abuse patient.[facility] HealthIn the event this information is protected by the Federal Confidentiality of Alcohol and Drug Abuse Patient Records regulations: The Federal rules restrict any use of the information to criminally investigate or prosecute any alcohol or drug abuse patient.[facility] HealthIn the event this information is protected by the Federal Confidentiality of Alcohol and Drug Abuse Patient Records regulations: The Federal rules restrict any use of the information to criminally investigate or prosecute any alcohol or drug abuse patient.[facility] HealthIn the event this information is protected by the Federal Confidentiality of Alcohol and Drug Abuse Patient Records regulations: The Federal rules restrict any use of the information to criminally investigate or prosecute any alcohol or drug abuse patient.[facility] HealthIn the event this information is protected by the Federal Confidentiality of Alcohol and Drug Abuse Patient Records regulations: The Federal rules restrict any use of the information to criminally investigate or prosecute any alcohol or drug abuse patient.[facility] HealthIn the event this information is protected by the Federal Confidentiality of Alcohol and Drug Abuse Patient Records regulations: The Federal rules restrict any use of the information to criminally investigate or prosecute any alcohol or drug abuse patient.[facility] HealthIn the event this information is protected by the Federal Confidentiality of Alcohol and Drug Abuse Patient Records regulations: The Federal rules restrict any use of the information to criminally investigate or prosecute any alcohol or drug abuse patient.[facility] HealthIn the event this information is protected by the Federal Confidentiality of Alcohol and Drug Abuse Patient Records regulations: The Federal rules restrict any use of the information to criminally investigate or prosecute any alcohol or drug abuse patient.[facility] HealthIn the event this information is protected by the Federal Confidentiality of Alcohol and Drug Abuse Patient Records regulations: The Federal rules restrict any use of the information to criminally investigate or prosecute any alcohol or drug abuse patient.[facility] HealthIn the event this information is protected by the Federal Confidentiality of Alcohol and Drug Abuse Patient Records regulations: The Federal rules restrict any use of the information to criminally investigate or prosecute any alcohol or drug abuse patient.[facility] HealthIn the event this information is protected by the Federal Confidentiality of Alcohol and Drug Abuse Patient Records regulations: The Federal rules restrict any use of the information to criminally investigate or prosecute any alcohol or drug abuse patient.[facility] HealthIn the event this information is protected by the Federal Confidentiality of Alcohol and Drug Abuse Patient Records regulations: The Federal rules restrict any use of the information to criminally investigate or prosecute any alcohol or drug abuse patient.[facility] HealthIn the event this information is protected by the Federal Confidentiality of Alcohol and Drug Abuse Patient Records regulations: The Federal rules restrict any use of the information to criminally investigate or prosecute any alcohol or drug abuse patient.[facility] HealthIn the event this information is protected by the Federal Confidentiality of Alcohol and Drug Abuse Patient Records regulations: The Federal rules restrict any use of the information to criminally investigate or prosecute any alcohol or drug abuse patient.[facility] HealthIn the event this information is protected by the Federal Confidentiality of Alcohol and Drug Abuse Patient Records regulations: The Federal rules restrict any use of the information to criminally investigate or prosecute any alcohol or drug abuse patient.[facility] HealthIn the event this information is protected by the Federal Confidentiality of Alcohol and Drug Abuse Patient Records regulations: The Federal rules restrict any use of the information to criminally investigate or prosecute any alcohol or drug abuse patient.[facility] HealthIn the event this information is protected by the Federal Confidentiality of Alcohol and Drug Abuse Patient Records regulations: The Federal rules restrict any use of the information to criminally investigate or prosecute any alcohol or drug abuse patient.[facility] HealthIn the event this information is protected by the Federal Confidentiality of Alcohol and Drug Abuse Patient Records regulations: The Federal rules restrict any use of the information to criminally investigate or prosecute any alcohol or drug abuse patient.[facility] HealthIn the event this information is protected by the Federal Confidentiality of Alcohol and Drug Abuse Patient Records regulations: The Federal rules restrict any use of the information to criminally investigate or prosecute any alcohol or drug abuse patient.[facility] HealthIn the event this information is protected by the Federal Confidentiality of Alcohol and Drug Abuse Patient Records regulations: The Federal rules restrict any use of the information to criminally investigate or prosecute any alcohol or drug abuse patient.[facility] HealthIn the event this information is protected by the Federal Confidentiality of Alcohol and Drug Abuse Patient Records regulations: The Federal rules restrict any use of the information to criminally investigate or prosecute any alcohol or drug abuse patient.[facility] Care Team (unrecognized sect ion and content) [...] Shasta Zaragoza APRN Other Provider Active Danielle S [place] , ADDING MACHINE OPERATOR-C Other Provider Active Lizzeth Malave MD Attending [...] Provider, Other Pr ovider Active Dorita Niño [facility] Other Provider Active Kenrick Lee , DO Other Provider Active Shasta Zaragoza APRN Other Provider Active Danielle Smtih , ADDING MACHINE OPERATOR-C Other Provider Active Lizzeth Malave MD Attending Provider Active Team Status: Inactive Member Role Status Dates Jennie Durand , DO Primary Care Provider Active Dorita Niño [facility] Attending Provider Active Team Status: Inactive Member Role Status Dates Jennie Durand , DO Primary Care Provider Active Jose Maria Nair , DO Emergency Provider Active Team Status: Inactive Member Role Status Dates Jennie Durand , DO Primary Care Provider Active Yoli Norris MD Emergency Provider Active [place] Man Relationship Specialty Start Date End Date Jennie Durand, [address] [facility] [place] [phone] PCP - General Family Medicine 11/19/22 Team Status: Inactive Member Role Status Dates Jennie Durand , Primary Care Provider Active S tart: December 10, 2023 End: December 10, 2023 Marii Christiansen MD Emergency Provider Active Start: December 10, 2023 End: December 10, 2023 Team Status: Inactive Member Role Status Dates Jennie Durand , DO Primary Care Provider Active S tart: December 24, 2023 End: December 24, 2023 Jose Maria Nair DO Emergency Provider Active St art: December 24, 2023 End: December 24, 2023 Team Status: Inactive Member Role Status Dates Jennie Durand , DO Primary Care Provider Active S tart: December 31, 2023 End: December 31, 2023 Kenny Javed APRN Emergency Provider Active Start: December 31, 2023 End: December 31, 2023 [place] Man Relationship Specialty [place] [address] [place] [address] PCP - General Family Medicine 01/04/24 Nilo Prado MD [address] [place] [address] Referring Gastroenterology 08/17/23 [place] Man Relationship Specialty [place] [address] [place] [address] PCP - General Family Medicine 01/04/24 Nilo Prado MD [address] [place] [address] Referring Gastroenterology 08/17/23 [place] Man Relationship Specialty [place] [address] [place] [address] PCP - General Family Medicine 01/04/24 Nilo rPado MD [address] [place] [address] Referring Gastroenterology 08/17/23 [place] Man Relationship Specialty [place] [address] [place] [address] PCP - General Family Medicine 01/04/24 Nilo Prado MD [address] [place] [address] Referring Gastroenterology 08/17/23 [place] Man Relationship Specialty Start Date End Date Elia Baires [address] [place] [address] PCP - General Family Medicine 01/04/24 Nilo Prado MD [address] [place] [address] Referring Gastroenterology 08/17/23 [place] Man Relationship Specialty [place] [address] [place] [address] PCP - General Family Medicine 05/30/24 Nilo Prado MD [address] [place] [address] Referring Gastroenterology 08/17/23 [place] Man Relationship Specialty [place] [address] [place] [address] PCP - General Family Medicine 05/30/24 Nilo Prado MD [address] [place] [address] Referring Gastroenterology 08/17/23 [place] Man Relationship Specialty [place] [address] [place] [address] PCP - General Family Medicine 05/30/24 Nilo Prado MD [address] [place] [address] Referring Gastroenterology 08/17/23 [place] Man Relationship Specialty [place] [address] [place] [address] PCP - General Family Medicine 05/30/24 Nilo Prado MD [address] [place] [address] 46[address] Referring Gastroenterology 08/17/23 [place] Man Relationship Specialty [place] [address] [place] [address] PCP - General Family Medicine 05/30/24 Nilo Prado MD [address] [place] [address] Referring Gastroenterology 08/17/23 [place] Man Relationship Specialty [place] [address] [place] [address] PCP - General Family Medicine 05/30/24 Nilo Prado MD [address] [place] [address] 15687 Referring Gastroenterology 08/17/23 [place] Man Relationship Specialty [place] [address] [place] [address] PCP - General Family Medicine 05/30/24 Nilo Prado MD [address] [place] [address] Referring Gastroenterology 08/17/23 [place] Man Relationship Specialty [place] [address] [place] [address] PCP - General Family Medicine 05/30/24 Nilo Prado MD [address] [place] [address]77 Referring Gastroenterology 08/17/23 [place] Man Relationship Specialty [place] [address] [place] [address] PCP - General Family Medicine 05/30/24 Nilo Prado MD [address] [place] [address] Referring Gastroenterology 08/17/23 [place] Man Relationship Specialty Start [place] [address] [place] [address] PCP - General Family Medicine 05/30/24 Nilo Prado MD [address] [place] [address]296 Referring Gastroenterology 08/17/23 [place] Man Relationship Specialty [place] [address] [place] [address] PCP - General Family Medicine 05/30/24 Nilo Prado MD [address] [place] [address] Referring Gastroenterology 08/17/23 [place] Man Relationship Specialty [place] [address] [place] [address] PCP - General Family Medicine 05/30/24 Nilo Prado MD [address] [place] [address] Referring Gastroenterology 08/17/23 [place] [address] [place] [address] [employer] Family Medicine 08/22/24 [place] Man Relationship Specialty [place] [address] [place] [address] PCP - General Family Medicine 05/30/24 Nilo Prado MD [address] [place] [address] Referring Gastroenterology 08/17/23 [place] [address] [place] [address] [employer] Treatment Operator Family Medicine 08/22/24 [place] Man Relationship Specialty Start Date End Date Kurt Balbuena [address] [address] 09/21/24 [place] Man Relationship Specialty Start Date End Date Kurt Balbuena [address] [address] 09/21/24 Team Status: Active Member Role Status Dates Jennie Durand , Primary Care Provider Active S tart: July 03, 2024 Julio Peña DO Attending Provider Active Sta rt: July 03, 2024 [place] Man Relationship Specialty Start Date End Date Kurt Balbuena [facility] [address] [place] [address] 09/21/24 [place] Man Relationship Specialty Start Date End Date [facility] [address] [place] [address] 09/21/24 Corby Larsen DO [address] [place] [address] Referring Physician Neurology 09/27/24 Team Status: Inactive Member Role Status Dates NON STAFF Primary Care Provider Active Start: December 16, 2024 End: December 16, 2024 Corby Larsen DO Attending Provider Active Start: December 16, 2024 End: December 16, 2024 [place] Man Relationship Specialty [place] [address] [place] [address] PCP - General Family Medicine 05/30/24 Nilo Prado MD [address] [place] [address] [place] [address] Referring Gastroenterology 08/17/23 Lisha Bianchi APRN.CNP [address] [place] [address] [employer] Well Treatment Operator Family Medicine 12/16/24 Goals (unrecognized section and [...] BE BASED ON THE PRIMARY CLINICAL RECORDS. [facility]. provides no warranty or guarantee of the accuracy or completeness of information in this document.
--- NOTE | 2025-04-08 08:49 | CT_ITS ---
The [address] [address] Patient Name: LEILA HASSAN MRN: [id number] date: 1990 Sex: F Assigned Patient Location: ER Current Patient Location: ER Accession/Order Number: [id number] Exam Date: 04/08/2025 09:30 Report Date: 04/08/2025 09:32 At the request of: GABRIELA CAMARGO MD Procedure: CT head/brain wo con CT BRAIN WITHOUT CONTRAST: CLINICAL HISTORY: Left-sided headache starting this morning. COMPARISON: CT brain 03/16/2025 TECHNIQUE: Contiguous axial unenhanced images were obtained through the brain. This CT exam was performed using one or more following dose reduction techniques: Automated exposure control, adjustment of the mA and/or kV according to patient size, or use of iterative reconstruction technique. FINDINGS: There is no evidence of midline shift, intra or extra-axial fluid collection, hemorrhage or CT evidence of stroke. Empty sella is once again noted. Posterior fossa appears unremarkable. Visualized intraorbital contents demonstrate no acute findings. Minimal ethmoid sinus disease. The surrounding soft tissues are normal. CT/CT head/brain wo con IMPRESSION: NO ACUTE INTRACRANIAL ABNORMALITY. Impression dictated by: Raoul Newton Jr., D.O. 04/08/2025 9:32 AM Dictation Location: [place] [address] Electronically authenticated by: [id number] Y Date: 04/08/2025 09:32
--- NOTE | 2025-04-08 08:51 | ED_ITS ---
HPI HPI - General Adult General Chief complaint: Headache Stated complaint: HEADACHE, LEFT SIDE PAIN Time Seen by Provider: 04/08/25 08:28 Source: patient Mode of arrival: walk-in Limitations: no limitations History of Present Illness HPI narrative: 34-year-old female presents for pain in her left arm and her left leg and left- sided headache. It was not present when she woke up but started shortly thereafter. There is no trauma. No fever or localized weakness. Her thought her left eye looked a little bit droopy and told her. She drove herself to the hospital. She has a history of intracranial hypertension but has not seen her neurologist for about 7 months. She states she has been too busy with work and kids. She also states that she is an alcoholic but only had 1 alcoholic drink last night. Related Data Home Medications ?Medication ?Instructions ?Recorded ?Confirmed duloxetine 60 mg capsule,delayed 60 mg PO BID 06/10/23 04/08/25 release lamotrigine 25 mg tablet 100 mg PO QDAY 04/08/2403/15 gabapentin 100 mg capsule 600 mg PO TID 01/23/2504/08 trazodone 100 mg tablet 200 mg PO .qhs 01/23/2503/15 Previous Rx's ?Medication ?Instructions ?Recorded lzcfsoirkq-zgpvdafgqmaxm-nhjjniik 1 cap PO Q6H PRN suraj n 5 days #20 04/08/25 50 mg-300 mg-40 mg capsule caps (Fioricet) Allergies Allergy/AdvReac Type Severity Reaction Status Date / Time buspirone (From BuSpar) Allergy Intermediate tachycardia Verified 03/16/25 06:33 aripiprazole (From Abilify) Allergy Unknown Verified 03/16/25 06:33 COCONUT Allergy Mild Hives Uncoded 08/15/24 14:56 Opioid HPI Opioid Management Most Recent Opioid Data: Last Pain Scale 4 Today, 08:59 Last MAR Pain Assessment Today, 08:59 Ur Phencyclidine Scrn, (NEGATIVE) Negative , 13:51 Review of Systems ROS Narrative A ten point review of systems is negative except as noted above. PFSH PFSH Social History Smoking status: Current every day smoker Little interest or pleasure in doing things: not at all Feeling down, depressed, or hopeless: not at all Exam Narrative Exam Narrative: Nurses note and vital signs reviewed and patient is not hypoxic. General: The patient appears well and in no apparent distress. Patient is resting comfortably on cart. Skin: Warm, dry, no pallor noted. There is no rash noted. Head: Normocephalic, atraumatic; neck supple, no nuchal rigidity Eye: Normal conjunctiva, no drainage, EOMI. PERRL Ears, Nose, Mouth, and Throat: oral mucosa is moist. Nares patent. Cardiovascular: Regular Rate and Rhythm Respiratory: Patient is in no distress, no accessory muscle use, lungs are clear to auscultation, no wheezing, rales or rhonchi Back: non-tender GI: Soft and nontender Musculoskeletal: The patient has no evidence of calf tenderness, no pitting edema, symmetrical pulses noted bilaterally Neurological: A&O x4, normal speech; cranial nerves II through XII intact. I see no facial droop. Upper and lower extremity strength 5 out of 5 and symmetric as well. Psychiatric: Cooperative Constitutional Vital Signs, click to edit/add: Last Vital Signs Temp 98.7 F 04/08/25 08:31 Pulse 89 04/08/25 08:31 Resp 18 04/08/25 08:31 BP 126/94 H 04/08/25 08:31 Pulse Ox 100 04/08/25 08:31 O2 Del Method Room Air 04/08/25 08:31 Course Vital Signs Vital signs: Vital Signs Temperature 98.7 F 04/08/25 08:31 Pulse Rate 89 04/08/25 08:31 Respiratory Rate 18 04/08/25 08:31 Blood Pressure 126/94 H 04/08/25 08:31 Pulse Oximetry 100 04/08/25 08:31 Oxygen Delivery Method Room Air 04/08/25 08:31 Temperature 98.7 F 04/08/25 08:31 Pulse Rate 89 04/08/25 08:31 Respiratory Rate 18 04/08/25 08:31 Blood Pressure 126/94 H 04/08/25 08:31 Pulse Oximetry 100 04/08/25 08:31 Oxygen Delivery Method Room Air 04/08/25 08:31 Medical Decision Making MDM Narrative Medical decision making narrative: Her workup including CT brain is negative. She is feeling somewhat improved after being given IV Toradol and Solu-Medrol. She was instructed to follow-up promptly with her neurologist. Treatment diagnosis and follow-up were discussed with the patient. Differential Diagnosis Differential Diagnosis: Headache, intracranial hemorrhage Medical Records Medical records reviewed: Yes I reviewed the patient's medical records Lab Data Lab results reviewed: Yes I reviewed the patient's lab results Labs: Lab Results 04/08/25 Range/Units 08:52 WBC 10.8 (4.0-11.0) 10^3/uL RBC 3.75 L (4.20-5.40) 10^6/uL Hgb 12.6 (12.0-16.0) g/dL Hct 36.5 (36.0-48.0) % MCV 97.3 (81.0-99.0) fL MCH 33.6 (26.7-34.0) pg MCHC 34.5 (29.9-35.2) g/dL RDW 14.6 (11.0-15.0) % Plt Count 317 (150-450) 10^3/uL MPV 10.6 (9.5-13.5) fL Neut % (Auto) 69.0 (43.0-75.0) % Lymph % (Auto) 18.6 L (20.5-60.0) % Ashley % (Auto) 8.9 (1.7-12.0) % Eos % (Auto) 2.6 (0.9-7.0) % Baso % (Auto) 0.4 (0.2-2.0) % Neut # (Auto) 7.5 H (1.4-6.5) 10^3/uL Lymph # (Auto) 2.0 (1.2-3.8) 10^3/uL Ashley # (Auto) 1.0 H (0.3-0.8) 10^3/uL Eos # (Auto) 0.3 (0.0-0.7) 10^3/uL Baso # (Auto) 0.0 (0.0-0.1) 10^3/uL Abs Immat Gran (auto) 0.05 H (0.00-0.03) 10^3/uL Imm/Tot Granulo (auto) 0.5 (0.0-0.5) % Sodium 140 (136-145) mmol/L Potassium 4.7 (3.5-5.1) mmol/L Chloride 104 (98-107) mmol/L Carbon Dioxide 27.9 (21.0-32.0) mmol/L Anion Gap 12.8 BUN 10.0 (7.0-18.0) mg/dL Creatinine 0.69 (0.55-1.02) mg/dL Est GFR ( Amer) >60 (>=60 mL/min/1.73m^2) Est GFR (Non-Af Amer) >60 (>=60 mL/min/1.73m^2) BUN/Creatinine Ratio 14.5 Glucose 92 (74-106) mg/dL Calcium 9.1 (8.5-10.1) mg/dL Imaging Data CT scan - head: Radiologist's impression: ITS Impressions Head CT 04/08/25 08:49 IMPRESSION: NO ACUTE INTRACRANIAL ABNORMALITY. Impression dictated by: Raoul Newton Jr., D.O. 04/08/2025 9:32 AM Dictation [facility] Electron[facility] authenticated by: [id number] Y Date: 04/08/2025 09:32 Discharge Plan Discharge Chief Complaint: Headache Clinical Impression: Headache Patient Disposition: Home, Self-Care Time of Disposition Decision: 09:41 Condition: Good Mode of Transportation: Private Vehicle Prescriptions / Home Meds: New nsjforkntr-dzpgpymaimwhy-nqfi [Fioricet] 50-300-40 mg capsule 1 cap PO Q6H PRN (Reason: pain) 5 Days Qty: 20 0RF No Action duloxetine 60 mg capsule,delayed release(DR/EC) 60 mg PO BID lamotrigine 25 mg tablet 100 mg PO QDAY gabapentin 100 mg capsule 600 mg PO TID trazodone 100 mg tablet 200 mg PO .qhs Print Language: Telugu Instructions: Acute Headache (ED) Additional Instructions: Follow-up promptly with your neurologist. Referrals: KAYLEE AMES [Primary Care Provider, Unknown] - 1 week
[2025-04-08 08:55] VITALS: O2SAT 98
[2025-04-08] MEDS: KETOROLAC TROMETHAMINE 30 MG/ML VIAL IVP (08:59)
[2025-04-08] MEDS: METHYLPREDNISOLONE SOD SUCC PF 125 MG/2 ML VIAL IVP (08:59)
[2025-04-08 09:02] LABS: Hematocrit 36.5 % (36.0-48.0); Hemoglobin 12.6 g/dL (12.0-16.0); Immature Granulocytes Abs Auto 0.05 10^3/uL (0.00-0.03); Immature Granulocytes Pct Auto 0.5 % (0.0-0.5); Lymphocytes Absolute Auto 2.0 10^3/uL (1.2-3.8); Mean Corpuscular HGB Conc 34.5 g/dL (29.9-35.2); Mean Corpuscular Hemoglobin 33.6 pg (26.7-34.0); Mean Corpuscular Volume 97.3 fL (81.0-99.0); Platelet Count 317 10^3/uL (150-450); Red Blood Count 3.75 10^6/uL (4.20-5.40); White Blood Count 10.8 10^3/uL (4.0-11.0)
[2025-04-08 09:09] LABS: Anion Gap 12.8; Blood Urea Nitrogen 10.0 mg/dL (7.0-18.0); Calcium 9.1 mg/dL (8.5-10.1); Carbon Dioxide 27.9 mmol/L (21.0-32.0); Chloride 104 mmol/L (98-107); Estimated GFR (African America >60 (>=60 mL/min/1.73m^2); Estimated GFR (Non-African Ame >60 (>=60 mL/min/1.73m^2); Glucose 92 mg/dL (74-106); Potassium 4.7 mmol/L (3.5-5.1); Sodium 140 mmol/L (136-145)
== END 2025-04-08 09:51 | disposition home or self-care (01) ==
PROVIDERS: Emergency Provider Emergency Medicine
DX: R51.9 Headache, unspecified (principal); G93.2 Benign intracranial hypertension; F10.20 Alcohol dependence, uncomplicated; F17.200 Nicotine dependence, unspecified, uncomplicated
CPT/HCPCS: 36415; 70450; 80048; 85025; 96374; 96375; 99285; J1885; J2919

== ENCOUNTER 2025-04-12 07:00 | Emergency (ER) | payer MEDICARE, MEDICAID, SELFPAY ==
--- OUTSIDE RECORDS SUMMARY | 2024-11-08 06:00 | XMS_ITS ---
Author Organization [facility] Serv es Address [address] [facility] [place] [address] Care Team Providers Care Research Advisor Name Role Phone Ilda Lloyd Primary Care Provider Raghav Walton Unavailable [phone] Jennifer Hammond Unavailable [phone] Encounters Encounter Location Date Provider Diagnosis [place] [address] [address] 11/08/2024 Jennifer Hammond Plan Of Treatment No Information Progress Notes * LEILA HASSAN LDOB:1990 (34 yo F)Acc No.[id number]:11/08/2024 F/U - Patient Patient: KARIN BARBOURDION Bach Provider: Crystal Shaikh :1990 A ge:33 Y S ex:Female Date:11/08/2024 Address:[address] [place], [place] [id number] Pcp:Ilda Lloyd Subjective: * Chief Complaints: * Objective: Therapeutic Interventions: Assessment: Plan: * Images: Care Plan Details* * Electronic signature of FRANCISCO JAVIER Viera on 04/12/2025 at 07:11 AM EDT Sign off status: Pending * Provider: Crystal Shaikh Date: 0 11/08/2024 Generated for Nareshi norberto/James/eTransmitting on: 0 04/12/2025 07:11 AM EDT
--- OUTSIDE RECORDS SUMMARY | 2025-04-09 10:45 | XMS_ITS | Encounter Summary ---
Author Organization [facility] Address [address] [place] [address] Care Team Providers Care Rent And Miscellaneous Remittance Clerk Name Role Phone Yolande Page PRECISION PRINTING WORKER Unavailable [phone] Pop Larsen DO Unavailable [phone] Encounter Details Date Type Department Care Team (Late Contact Info) Description 04/09/2025 10:45 AM EDT Office Visit [facility] [address] [place] [phone] Shazia Elise, PRECISION PRINTING WORKER [address] [place] [address] Acute pharyngitis, unspecified etiology (Primary Dx); Pharyngitis, unspecified etiology Social History Tobacco Use Types Packs/Day Years Used Date Smoking Tobacco: Every Day Cigarettes Alcohol Use Standard Drinks/Week Comments Yes 4 (1 standard drink = 0.6 oz pur e alcohol) AUDIT-C Answer Date Recorded Q1: How often do you have a drink containing alcohol? 4 or more times a week 01/31/2024 Q2: How many drinks containi ng alcohol do you have on a typical day when you are drinking? 3 or 4 Q3: How often do you have si x or more drinks on one occasion? Never 01/31/2024 Comments Unknown Sex and Gender Information Value Date Recorded Sex Assigned at Not on file Legal Sex Female 6:39 PM EDT Gender Identity Not on file Sexual Orientation Not on file documented as of this encounter Last Filed Vital Signs Vital Sign Reading Time Taken Comments Blood Pressure 118/82 04/09/2025 10:45 AM EDT Pulse 95 04/09/2025 10:45 AM EDT Temperature 35.6 C (96.1 F) 04/09/2025 10:45 AM EDT Respiratory Rate - - Oxygen Saturation 98% 04/09/2025 10:45 AM EDT Inhaled Oxygen Concentration - - Weight 91.2 kg (201 lb) 04/09/2025 10:45 AM EDT Height - - Body Mass Index 32.44 08/01/2021 12:00 PM EST documented in this encounter Plan of Treatment Upcoming Encounters Date Type Department Care Team (Late st Contact Info) Description 04/13/2025 10:00 AM EDT Consult [facility] [address] [phone] Shaji Francis DO [address] [address] documented as of this encounter Procedures Procedure Name Priority Date/Time Associated Diagnosis Comments STREP DNA PROBE Routine 04/09/2025 11:03 AM EDT Pharyngitis, unspecified etiology documented in this encounter Results * STREP DNA PROBE (04/09/2025 11:03 AM EDT) RESULT neg Negative Throat 04/09/2025 11:0 3 AM EDT Shazia Elise PRECISION PRINTING WORKER POINT OF CARE TEST ENTER/JEREMIAH T ORDERABLES Final Result documented in this encounter Visit Diagnoses Diagnosis Acute pharyngitis, unspecified etiology- Primary Pharyngitis, unspecified etiology documented in this encounter Care Teams Rent And Miscellaneous Remittance Clerk Relationship Specialty Start Date End Date Yolande Page NP [facility] [address] [place] [address] 09/21/24 Pop Larsen DO [facility] [address] [place] [id number] Referring Physician Neurology 09/27/24 documented as of this encounter
[2025-04-12] VITALS (15 sets, daily range): BP systolic 135–154; BP diastolic 85–110; PULSE 65–91; TEMP 36.8; O2SAT 96–100; BMI 31.1
--- OUTSIDE RECORDS SUMMARY | 2025-04-12 07:11 | XMS_ITS | Clinical Summary ---
Author Organization [facility] Address [address], [address] [place] [address] Care Team Providers Care Television Cabinet Finisher Name Role Phone Jennie Durand DO Primary Care Provider [phone] Allergies Active Allergy Reactions Criticality Noted Date Comments Aripiprazole 02/24/2023 Bupropion 07/16/2021 Coconut (Cocos Nucifera) Itching Medium 07/18/2020 Coconut Flavoring Agent (Non-Screening) Anaphylaxis High 05/09/2020 coconut Medications varenicline (CHANTIX) 1 MG tablet as needed 1 Active traZODone (DESYREL) 100 MG tablet as needed 3 Active Multiple Vitamins-Mineral s (MULTI-DAY PLUS MINERALS PO) Take by mouth 1 Active DULoxetine (CYMBALTA) 60 MG extended release capsule Take 1 capsule by mouth in the morning and at bedtime Patient states she takes at 5pm 4 Active ferrous sulfate (IRON 325) 325 (65 Fe) MG tablet Take 1 tablet by mouth daily (with breakfast) 30 tablet 5 4 Active gabapentin (NEURONTIN) 300 MG capsule Take 1 capsule by mouth 3 times daily. 5 Active lamoTRIgine (LAMICTAL) 100 MG tablet Take 1 tablet by mouth daily 5 Active gabapentin (NEURONTIN) 600 MG tablet Take 1 tablet by mouth. 5 Active VRAYLAR 1.5 MG capsule Take 1 capsule by mouth daily 5 Active Semaglutide-Weig ht Management (WEGOVY) 0.25 MG/0.5ML SOAJ SC injectionIndicat ions:Class 1 obesity due to excess calories without serious comorbidity with body mass index (BMI) of 32.0 to 32.9 in adult Inject 0.6 mg into the skin every 7 days 2 mL 2 5 Active ondansetron (ZOFRAN) 4 MG tablet Take 1 tablet by mouth every 8 hours as needed for Nausea or Vomiting 30 tablet 2 5 Active Active Problems Patient Care Coordination No te Formatting of this note is d ifferent from the original. Post -op Bariatric Summary Procedure: Bypass Surgeon:Dr. Vickers HT: Date Weight Labs Ordered Labs Resulted Notes Initial Wt 05/09/20 272lb Day of Surgery 01/07/21 259lb 1 Wk Post-op 01-18-21 255 5 Wk Post-op 03/06/21 236 y 3 Mon Post-op 04-24-21 222 y Completed at [facility]- will request 6 Mon Post-op 07-24-21 204 04-02-21 Acceptable 9 Mon Post-op 11/20/21 190 ? 11-12-21 1 Year Post-op Not seen ? Annual 18 mo 02-24-23 186 ? ? 2 year post op 05/27/23 191 Starting at 1 Wk Post-op: Bariatric Multivitamin with iron and Calcium Bariatric - WEIGHT LOSS MEDICATION SEMAGLUTIDE Prescriber: Marii Dasilva CNP Date Weight Labs Ordered Labs Resulted Notes Initial Wt 10/13/23 204 Script sent on 10/19 to [facility] 11-12-23 195 12/12/24 205 12/16/23 196 01/13/24 202 ? 01/18/25 205 ? Problem Noted Date Diagnosed Date Low iron 05/27/2023 Intestinal malabsorption 11/19/2022 Overweight (BMI 25.0-29.9) 11/20/2021 Obesity (BMI 30-39.9) 07/24/2021 Status post gastric bypass for obesity 1 Vitamin D deficiency 06/27/2020 History of nicotine use 05/23/2020 Gastroesophageal reflux disease without esophagi tis 05/23/2020 Borderline personality disorder 05/23/2020 Flat feet 05/23/2020 Bilateral foot pain 05/23/2020 Anxiety and depression 05/16/2020 Bipolar disease, chronic 05/16/2020 Arthritis 05/16/2020 Resolved Problems Problem Noted Date Diagnosed Date Resolved Date Menorrhagia 11/19/2022 05/27/2023 Omental infarction 01/31/2021 3 Intra-abdominal abscess 01/30/202105/15 Dehydration 01/26/2021 02/25/2021 Morbid obesity with BMI of 40.0-44.9, adult 05/16/2020 07/24/2021 Gastroesophageal reflux dise ase with esophagitis without hemorrhage 3 Hiatal hernia 07/24/2021 Encounters Date Type Department Care Team Description 02/01/2025 Telephone [facility] [address] [address] Marii Dasilva APRN - CNP Nausea 01/18/2025 1:45 PM EDT Office Visit [facility] [address] [facility] [address] [place] [address] Marii Dasilva APRN - CNP Bipolar disease, chronic (HCC) (Primary Dx); Intestinal malabsorption, unspecified type; Status post gastric bypass for obesity; Class 1 obesity due to excess calories without serious comorbidity with body mass index (BMI) of 32.0 to 32.9 in adult; Screening, lipid 01/18/2025 Travel 01/11/2025 Orders Only [facility] [address] [address] Marii Dasilva APRN - CNP from Last 3 Months Family History Medical History Relation Name Comments Cancer Father Other Father ALS Cancer Mother stage 4 pancrea tic Diabetes Mother High Blood Pressure Mother Stroke Mother Relation Name Status Comments Father Alive Mother Alive Social History Tobacco Use Types Packs/Day Years Used Date Smoking Tobacco: Every Day Cigarettes Last attempted to quit: 03/14/2020 Smokeless Tobacco: Current Tobacco Cessation:Ready to Q uit: Not Asked; Counseling Given: Not Answered Alcohol Use Standard Drinks/Week Comments Yes 0 (1 standard drink = 0.6 oz pur e alcohol) rare AUDIT-C Answer Date Recorded Q1: How often do you have a drink containing alc ohol? Never 09/28/2020 Average Number of Drinks Not on file 021 Frequency of Binge Drinking Not on file 09/14 Interpersonal Safety Domain Source: IP Abuse Scr eening Answer Date Recorded Read-Only, Retired: Physical Abuse Denies 09/18/2023 Read-Only, Retired: Verbal Abuse Denies 09/18/2023 Read-Only, Retired: Emotional abuse Denies 09/18/2023 Read-Only, Retired: Financial Abuse Denies 09/18/2023 Read-Only, Retired: Sexual abuse Denies 09/18/2023 Comments No Sex and Gender Information Value Date Recorded Sex Assigned at Female 11/29/2024 9:44 AM EDT Legal Sex Female 11:40 AM EDT Gender Identity Not on file Sexual Orientation Not on file Last Filed Vital Signs Vital Sign Reading Time Taken Comments Blood Pressure 132/82 01/18/2025 1:40 PM EDT Pulse 98 01/18/2025 1:40 PM EDT Temperature 36.2 C (97.1 F) 09/18/2023 8:24 AM EST Respiratory Rate 18 10/13/2023 1:00 PM EST Oxygen Saturation 96% 01/18/2025 1:40 PM EDT Inhaled Oxygen Concentration - - Weight 92.1 kg (203 lb) 01/18/2025 1:40 PM EDT Height 170.2 cm (5' 7 ) 01/18/2025 1:40 PM EDT Body Mass Index 31.79 01/18/2025 1:40 PM EDT Plan of Treatment Health Maintenance Due Date Last Done Comments Depression Monitoring 2000 Varicella vaccine (1 of 2 - 13+ 2-dose series) 2001 HIV screen 12/18/2003 Hepatitis C screen 2006 DTaP/Tdap/Td vaccine (1 - Tdap) 12/18/2007 Hepatitis B vaccine (1 of 3 - 19+ 3-dose series) 12/18/2007 Pneumococcal 0-49 years Vaccine (1 of 2 - PCV) 12/18/2007 Pap smear 2009 Cervical cancer screen 2018 HPV (without or with Pap) 2018 COVID-19 Vaccine ( - season) 2024 04/29/2021, 04/08/2021 Annual Wellness Visit (Medicare) 12/01/2024 Flu vaccine (#1) 04/14/2025 07/09/2020 A1C test (Diabetic or Prediabetic) Discontinued 08/12/2023, 03/19/2023, 07/18/2022, Additional history exists HPV vaccine Aged Out No longer eligi ble based on patient's age to complete this topic Hepatitis A vaccine Aged Out No longe r eligible based on patient's age to complete this topic Hib vaccine Aged Out No longer eligi ble based on patient's age to complete this topic Meningococcal (ACWY) vaccine Aged Out No longer eligible based on patient's age to complete this topic Meningococcal B vaccine Aged Out No l onger eligible based on patient's age to complete this topic Polio vaccine Aged Out No longer elig ible based on patient's age to complete this topic Procedures Procedure Name Priority Date/Time Associated Diagnosis Comments HEMOGLOBIN A1C Routine 08/12/2023 7:45 AM EST Gastroesophageal reflux disease without esophagitis Anxiety and depression Status post gastric bypass for obesity Overweight (BMI 25.0-29.9) Low iron Vitamin D deficiency from Last 3 Months or Most Recently Relevant to Health Maintenance Results * Hemoglobin A1C (08/12/2023 7:45 AM EST) Hemoglobin A1C 5.6 4.0 - 6.0 % 08/12/2023 7:45 AM EST [facility] Estimated Avg Glucose 114 mg/dL 08/12/2023 7:45 AM EST [facility] Comment: The ADA and AACC recommend providing the estimated average glucose result to permit better patient understanding of their HBA1c result. BLOOD SPECIMEN / Unknown 08/12/2023 7:45 AM EST 08/12/2023 7:46 AM EST Koki Chan DRY LUMBER GRADER - DIE TESTER CHEMISTRY ORDERABLES Final Result [facility] [address] [place] [address], [facility] [phone] [facility] [address] [place] [address], [facility] [phone] from Last 3 Months or Most Recently Relevant to Health Maintenance Insurance MEDICARE MEDICAID [place] [facility] MEDICARE on file Advance Directives * Full Code (Latest Code Status on File) Date Activated Date Inactivated Comments 01/31/2021 11:30 PM 02/01/2021 12:23 PM * Full Code Date Activated Date Inactivated Comments 01/07/2021 12:20 PM 01/08/2021 8:31 PM Care Teams Television Cabinet Finisher Relationship Specialty Start Date End Date Jennie [place] [address] PCP - General Family Medicine 11/19/22
--- OUTSIDE RECORDS SUMMARY | 2025-04-12 07:11 | XMS_ITS | Encounter Summary ---
Author Organization [facility] Address [address] [place] [address] Care Team Providers Care De Icer Finisher Name Role Phone Nilo Prado MD Unavailable Elia Min DO Primary Care Provider [phone] Tevin Villafana DO Primary Care Provider [phone] Natacha Schroeder DO Unavailable Lisha Worthington DATA ARCHITECT MANAGER.GENERAL PASSENGER AGENT Unavailable Source Comments In the event this information is protected by the Federal Confidentiality of Alcohol and Drug AbusePatient Records regulations: The Federal rules restrict any use of the information to criminally investigate or prosecute any alcohol or drug abuse patient.[facility] Encounter Details Date Type Department Care Team (Late st Contact Info) Description 05/12/2024 Patient Msg Family Medicine [address] [place] [address] Provider, [facility] Outstanding Orders Social History Tobacco Use Types Packs/Day Years Used Date Smoking Tobacco: Every Day Cigarettes 1 24 Smokeless Tobacco: Never Alcohol Use Standard Drinks/Week Comments Yes 0 (1 standard drink = 0.6 oz pur e alcohol) [facility] Utilities Answer Date Recorded In the past 12 months has [employer], gas, oil, or water Attensity threatened to shut off services in your home? No 03/02/2024 Social Connection and Isolat ion Panel [NHANES] Answer Date Recorded In a typical week, how many times do you talk on the phone with family, friends, or neighbors? More than three times a week 03/02/2024 How often do you get togethe r with friends or relatives? Never 03/02/2024 How often do you attend chur ch or scientologist services? Never 03/02/2024 Do you belong to any clubs o r organizations such as cheondoism groups, unions, fraternal or athletic groups, or school groups? No 03/02/2024 How often do you attend meet ings of the clubs or organizations you belong to? Never 03/02/2024 Are you , , di vorced, , never , or living with a partner? 03/02/2024 AUDIT-C Answer Date Recorded Q1: How often do you have a drink containing alc ohol? Patient declined 03/02/2024 Q2: How many drinks containi ng alcohol do you have on a typical day when you are drinking? Patient declined 03/02/2024 Q3: How often do you have si x or more drinks on one occasion? Never 03/02/2024 Overall Financial Resource Strain (CARDIA) Answe r Date Recorded How hard is it for you to pa y for the very basics like food, housing, medical care, and heating? Not very hard 03/02/2024 PHQ-2 Answer Date Recorded PHQ-2 score 1 02/20/2023 [facility] Questionnaire Answer Date Recorded Do you feel stress - tense, restless, nervous, or anxious, or unable to sleep at night because your mind is troubled all the time - these days? Only a little 03/02/2024 Exercise Vital Sign Answer Date Recorde d On average, how many days pe r week do you engage in moderate to strenuous exercise (like a brisk walk)? 0 days 03/02/2024 On average, how many minutes do you engage in exercise at this level? 0 min 03/02/2024 Hunger Vital Sign Answer Date Recorded Within the past 12 months, y ou worried that your food would run out before you got the money to buy more. Never true 03/02/20 24 Within the past 12 months, t he food you bought just didn't last and you didn't have money to get more. Never true 03/02/2024 PRAPARE - Transportation Answer Date Re corded In the past 12 months, has l ack of transportation kept you from medical appointments or from getting medications? No 02/12 In the past 12 months, has l ack of transportation kept you from meetings, work, or from getting things needed for daily living? No 03/02/2024 Housing Stability Vital Sign Answer Maynor e Recorded In the last 12 months, was t here a time when you were not able to pay the mortgage or rent on time? No 03/02/2024 Number of Places Lived in the Last Year Not on f ile 03/02/2024 In the last 12 months, was t here a time when you did not have a steady place to sleep or slept in a prison (including now)? No 03/02/2024 Area Deprivation Index Answer Date David rded National Score (1-100), lower number is lower ri sk 78 02/27/2023 State Score (1-10), lower number is lower risk 6 02/27/2023 Data from: https://www.neighborhoodatlas.medicine.[facility].edu/. Last address used for calculation [address] [place] [address] 02/27/2023 Comments No Sex and Gender Information Value Date Recorded Sex Assigned at Female 02/06/2022 6:05 PM EDT Legal Sex Female 10:01 AM EST Gender Identity Female 01/13/2022 11:52 AM EDT Sexual Orientation Straight 02/06/2022 6: 05 PM EDT documented as of this encounter Plan of Treatment Upcoming Encounters Date Type Department Care Team (Latest Contact Info) Description 05/16/2025 9:00 AM EDT Office Visit [facility] [address] [id number] Molly Kramer APRN.GENERAL PASSENGER AGENT [address] [place] [address] LT BREAST PAIN WITH DISCOLORATION 05/16/2025 9:30 AM EDT Appointment Mammography [address] [phone] LT BREAST PAIN WITH DISCOLORATION documented as of this encounter Visit Diagnoses Not on filedocumented in this encounter Care Teams De Icer Finisher Relationship Specialty Start Date End Date Eila Min DO [address] [place] [address] PCP - General Family Medicine 01/04/24 05/29/24 [place] [address] [place] [address] PCP - General Family Medicine 05/30/24 02/13/25 Nlio Prado MD [address] [place] [address] Referring Gastroenterology 08/17/23 [place] [address] [place] [address] Chief Librarian Work With Blind Family Medicine 08/22/24 12/15/24 Lisha Worthington APRN.IRENE [address] [place] [address] Chief Librarian Work With Blind Family Medicine 12/16/24 documented as of this encounter
--- OUTSIDE RECORDS SUMMARY | 2025-04-12 07:11 | XMS_ITS | Encounter Summary ---
Author Organization [facility] Address [address] [place] [address] Care Team Providers Care Vaccine Customer Representative Name Role Phone Nilo Prado MD Unavailable Elia Min DO Primary Care Provider [phone] Tevin Villafana DO Primary Care Provider [phone] Natacha Schroeder DO Unavailable Lisha Worthington PLASTICS FITTER.CLEARANCE DIVER Unavailable Source Comments In the event this information is protected by the Federal Confidentiality of Alcohol and Drug AbusePatient Records regulations: The Federal rules restrict any use of the information to criminally investigate or prosecute any alcohol or drug abuse patient.[facility] Encounter Details Date Type Department Care Team (Late st Contact Info) Description 05/20/2024 Patient [facility] [address] [place] [address] Jackie Hunt RPh At your next appointment, choose [facility]. Social History Tobacco Use Types Packs/Day Years Used Date Smoking Tobacco: Every Day Cigarettes 1 24 Smokeless Tobacco: Never Alcohol Use Standard Drinks/Week Comments Yes 0 (1 standard drink = 0.6 oz pur e alcohol) [facility] Utilities Answer Date Recorded In the past 12 months has th e electric, gas, oil, or water company threatened to shut off services in your [...] often do you attend chur ch or mandaeism services? Never 03/02/2024 Do you belong to any clubs o r organizations such as yazdanism groups, unions, fraternal or athletic groups, or [...] Answer Date Recorded PHQ-2 score 1 02/20/2023 [facility]ational Stress Questionnaire Answer Date Recorded [...] place to sleep or slept in a mcc (including now)? No 03/02/2024 Area Deprivation Index Answer Date David rded National Score (1-100), lower number is lower ri 78 02/27/2023 State Score (1-10), lower number is lower risk 6 02/27/2023 Data from: https://www.neighborhoodatlas.medicine.[facility].edu/. Last address used for calculation [address] 02/27/2023 Comments No Sex and Gender Information [...] AM EDT Office Visit Breast Center [address] [place] [address] Molly Kramer APRN.CLEARANCE DIVER [address] [place] [address] LT BREAST PAIN WITH DISCOLORATION 05/16/2025 9:30 AM EDT Appointment Mammography [address] [address] BREAST PAIN WITH DISCOLORATION documented as of this encounter Visit Diagnoses Not on filedocumented in this encounter Care Teams Vaccine Customer Representative Relationship Specialty Start Date End Date Elia Min DO [address] [place] [address] PCP - General Family Medicine 01/04/24 05/29/24 [place] [address] [place] [address] PCP - General Family Medicine 05/30/24 02/13/25 Nilo Pardo MD [address] [place] [address] Referring Gastroenterology 08/17/23 [place] [address] [place] [address] Trimming Press Operator Family Medicine 08/22/24 12/15/24 Lisha Worthington APRN.IRENE [address] [place] [address] Trimming Press Operator Family Medicine 12/16/24 documented as of this encounter
--- OUTSIDE RECORDS SUMMARY | 2025-04-12 07:12 | XMS_ITS | Encounter Summary ---
Author Organization [facility] Address [address] [place] [address] Phone Care Team Providers Care Hogshead Mat Assembler Name Role Phone Generic Provider, No Assigned Pcp MD Primary Car e Provider Unavailable Encounter Details Date Type Department Care Team (Late st Contact Info) Description 07/03/2023 Scanned Document [facility] [address] [place] [id number] Scanning, Generic Provider Social History Tobacco Use Types Packs/Day Years Used Date Smoking Tobacco: Never Assessed Comments Unknown Sex and Gender Information Value Date Recorded Sex Assigned at Female 09/11/2024 9:48 AM EST Legal Sex Female 2:23 PM EST Gender Identity Female 09/11/2024 9:48 AM EST Sexual Orientation Choose not to disclose 2023 9:48 AM EST documented as of this encounter Plan of Treatment Not on file documented as of this encounter Visit Diagnoses Not on filedocumented in this encounter Care Teams Hogshead Mat Assembler Relationship Specialty Start Date End Date Generic Provider, No [place] [address] PCP - General Machine Spreader 11/03/24 documented as of this encounter
--- OUTSIDE RECORDS SUMMARY | 2025-04-12 07:12 | XMS_ITS | Encounter Summary ---
Author Organization [facility] Address [address] [place] [address] Phone Care Team Providers Care Spray Applicator Name Role Phone Generic Provider, No Assigned Pcp Primary Car e Provider Unavailable Encounter Details Date Type Department Care Team (Late st Contact Info) Description 12/12/2024 Scanned Document [facility] [address] [place] [id number] Scanning, Generic Provider Social History Tobacco Use Types Packs/Day Years Used Date Smoking Tobacco: Every Day Cigarettes Smokeless Tobacco: Never Alcohol Use Standard Drinks/Week Comments Never 0 (1 standard drink = 0.6 oz pur e alcohol) Comments Unknown Sex and Gender Information Value [...] on filedocumented in this encounter Care Teams Spray Applicator Relationship Specialty Start Date End Date Generic Provider, No Assigned P[place], [place] [address] PCP - General Optical Effects Line Up Person 11/03/24 documented as of this encounter
--- OUTSIDE RECORDS SUMMARY | 2025-04-12 07:12 | XMS_ITS | Encounter Summary ---
Author Organization [facility] Address [address] [place] [address] Care Team Providers Care Power Grader Operator Name Role Phone Nilo Prado MD Unavailable Elia Min DO Primary Care Provider [phone] Tevin Villafana DO Primary Care Provider [phone] Natacha Schroeder DO Unavailable Lisha Worthington APRN.OPTICAL MODEL MAKER AND TESTER Unavailable Source Comments In the event this information is protected by the Federal Confidentiality of Alcohol and Drug AbusePatient Records regulations: The Federal rules restrict any use of the information to criminally investigate or prosecute any alcohol or drug abuse patient.[facility] Encounter Details Date Type Department Care Team (Late st Contact Info) Description 01/05/2024 Get Medical Advice Family Medicine [address] [place] [address] Elia Min DO [address] [place] [id number] Medicine Social History Tobacco Use Types Packs/Day Years Used Date Smoking Tobacco: Every Day Cigarettes Smokeless Tobacco: Never Alcohol Use Standard Drinks/Week Comments Yes 0 (1 standard drink = 0.6 oz pur e alcohol) beer and wine once a month Social Connection and Isolat ion Panel [NHANES] Answer Date Recorded In a typical week, how many times do you talk on the phone with family, friends, or neighbors? More than three times a week 07/03/2022 How often do you get togethe r with friends or relatives? Once a week 07/03/2022 How often do you attend chur ch or adventist services? Never 07/03/2022 Do you belong to any clubs o r organizations such as worship groups, unions, fraternal or athletic groups, or school groups? No 07/03/2022 How often do you attend meet ings of the clubs or organizations you belong to? Never 07/03/2022 Are you , , di vorced, , never , or living with a partner? 07/03/2022 AUDIT-C Answer Date Recorded Q1: How often do you have a drink containing alcohol? 4 or more times a week 07/03/2022 Q2: How many drinks containi ng alcohol do you have on a typical day when you are drinking? 7 to 9 Q3: How often do you have si x or more drinks on one occasion? Daily or almost daily 07/03/2022 Overall Financial Resource Strain (CARDIA) Answe r Date Recorded How hard is it for you to pa y for the very basics like food, housing, medical care, and heating? Not very hard 07/03/2022 PHQ-2 Answer Date Recorded PHQ-2 score 1 02/20/2023 [facility] - Occupational Stress Questionnaire Answer Date Recorded Do you feel stress - tense, restless, nervous, or anxious, or unable to sleep at night because your mind is troubled all the time - these days? To some extent 07/03/2022 Exercise Vital Sign Answer Date Recorde d On average, how many days pe r week do you engage in moderate to strenuous exercise (like a brisk walk)? 4 days 07/03/2022 On average, how many minutes do you engage in exercise at this level? 20 min 07/03/2022 Hunger Vital Sign Answer Date Recorded Within the past 12 months, y ou worried that your food would run out before you got the money to buy more. Sometimes true Within the past 12 months, t he food you bought just didn't last and you didn't have money to get more. Never true PRAPARE - Transportation Answer Date Re corded In the past 12 months, has l ack of transportation kept you from medical appointments or from getting medications? No 06/15 In the past 12 months, has l ack of transportation kept you from meetings, work, or from getting things needed for daily living? No 07/03/2022 Housing Stability Vital Sign Answer Maynor e Recorded In the last 12 months, was t here a time when you were not able to pay the mortgage or rent on time? No 07/03/2022 In the last 12 months, how many places have you lived? 1 07/03/2022 In the last 12 months, was t here a time when you did not have a steady place to sleep or slept in a correction (including now)? No 07/03/2022 Area Deprivation Index Answer Date David rded National Score (1-100), lower number is lower ri sk 78 02/27/2023 State Score (1-10), lower number is lower risk 6 02/27/2023 Data from: https://www.neighborhoodatlas.medicine.[facility].edu/. Last address used for calculation [address] [place] [address] 02/27/2023 Comments Unknown Sex and Gender Information Value [...] AM EDT Office Visit Breast Center [address] [phone] Molly Kramer APRN.OPTICAL MODEL MAKER AND TESTER [address] [place] [address] LT BREAST PAIN WITH DISCOLORATION 05/16/2025 9:30 AM EDT Appointment Mammography [address] [address] LT BREAST PAIN WITH DISCOLORATION documented as of this encounter Visit Diagnoses Not on filedocumented in this encounter Care Teams Power Grader Operator Relationship Specialty Start Date End Date Elia Min DO [address] [address] PCP - General Family Medicine 01/04/24 05/29/24 [place] [address] [place] [address] PCP - General Family Medicine 05/30/24 02/13/25 Nilo Prado MD [address] [place] [address] Referring Gastroenterology 08/17/23 [place] [address] [place] [address] Lifter Driver Family Medicine 08/22/24 12/15/24 Lisha Worthington APRN.IRENE [address] [place] [address] Lifter Driver Family Medicine 12/16/24 documented as of this encounter
--- OUTSIDE RECORDS SUMMARY | 2025-04-12 07:12 | XMS_ITS | Encounter Summary ---
Author Organization [facility] Address [address] [place] [address] Care Team Providers Care Rn Hospital Name Role Phone Nilo Prado MD Unavailable Elia Min DO Primary Care Provider [phone] Tevin Villafana DO Primary Care Provider [phone] Natacha Schroeder DO Unavailable Lisha Worthington MARINE ELECTRICIAN APPRENTICE.CHEMICAL RESEARCH TECHNICIAN Unavailable Source Comments In the event this information is protected by the Federal Confidentiality of Alcohol and Drug AbusePatient Records regulations: The Federal rules restrict any use of the information to criminally investigate or prosecute any alcohol or drug abuse patient.[facility] Encounter Details Date Type Department Care Team (Late st Contact Info) Description 03/10/2024 Patient Msg Colorectal Surgery [address] [place], [place] [phone] Provider, Ashwin Your Virtual Visit with Dr Aguirre has been scheduled for 03/14/24 at 4:00PM Social History Tobacco Use Types Packs/Day Years Used Date Smoking Tobacco: Every Day Cigarettes 24 Smokeless Tobacco: Never Alcohol Use Standard Drinks/Week Comments Yes 0 (1 standard drink = 0.6 oz pur e alcohol) [facility] Utilities Answer Date Recorded In the past [...] often do you attend chur ch or spiritism services? Never 03/02/2024 Do you belong to any clubs o r organizations such as adventism groups, unions, fraternal or athletic groups, or [...] Answer Date Recorded PHQ-2 score 1 02/20/2023 [facility] - Occupational Stress Questionnaire Answer [...] place to sleep or slept in a long-term (including now)? No 03/02/2024 Area Deprivation Index Answer Date David rded National Score (1-100), lower number is lower ri sk 78 02/27/2023 State Score (1-10), lower number is lower risk 6 02/27/2023 Data from: https://www.neighborhoodatlas.medicine.[facility].edu/. Last address used for calculation [address] [place] [address] 02/27/2023 Comments No Sex and Gender Information [...] AM EDT Office Visit Breast Center [address] [phone] Molly Kramer APRN.CHEMICAL RESEARCH TECHNICIAN [address] [place] [address] LT BREAST PAIN WITH DISCOLORATION 05/16/2025 9:30 AM EDT Appointment Mammography [address] [address] LT BREAST PAIN WITH DISCOLORATION documented as of this encounter Visit Diagnoses Not on filedocumented in this encounter Care Teams Rn Hospital Relationship Specialty Start Date End Date Elia Min DO [address] [place] [address] PCP - General Family Medicine 01/04/24 05/29/24 [place] [address] [place] [address] PCP - General Family Medicine 05/30/24 02/13/25 Nilo Prado MD [address] [place] [address] Referring Gastroenterology 08/17/23 [place] [address] [place] [address] Report Writer Family Medicine 08/22/24 12/15/24 Lisha Worthington APRN.CNP [address] [place] [address] Report Writer Family Medicine 12/16/24 documented as of this encounter
--- OUTSIDE RECORDS SUMMARY | 2025-04-12 07:12 | XMS_ITS | Encounter Summary ---
Author Organization [facility] Address [address] [place] [address] Care Team Providers Care Director Business Name Role Phone Nilo Prado MD Unavailable Tevin Villafana DO Primary Care Provider [phone] Natacha Schroeder DO Unavailable Lisha Worthington COMMUNITY LIAISON.LINE HAUL TRUCK DRIVER Unavailable Source Comments In the event this information is protected by the Federal Confidentiality of Alcohol and Drug AbusePatient Records regulations: The Federal rules restrict any use of the information to criminally investigate or prosecute any alcohol or drug abuse patient.[facility] Encounter Details Date Type Department Care Team (Late st Contact Info) Description 10/17/2024 Patient Msg Navigate [facility] [place] [address] [place] [address] Provider, [facility]cf Scheduling Needed Social History Tobacco Use Types Packs/Day Years Used Date Smoking Tobacco: Every Day Cigarettes 1 24 Smokeless Tobacco: Never Alcohol Use Standard Drinks/Week Comments Yes 0 (1 standard drink = 0.6 oz pur e alcohol) 13 days sober- 07/04/2024 [facility] Utilities Answer Date Recorded In the past 12 months has [employer], gas, oil, or water company threatened to [...] often do you attend chur ch or taoist services? Never 03/02/2024 Do you belong to any clubs o r organizations such as rastafari groups, unions, fraternal or athletic groups, or [...] 03/02/2024 PHQ-2 Answer Date Recorded PHQ-2 score 2 07/01/2024 [facility] Answer Date [...] place to sleep or slept in a alf (including now)? No 03/02/2024 Area Deprivation Index Answer Date David rded National Score (1-100), lower number is lower ri sk 78 02/27/2023 State Score (1-10), lower number is lower risk 6 02/27/2023 Data from: https://www.neighborhoodatlas.medicine.[facility].edu/. Last address used for calculation [address] 02/27/2023 Comments No Sex and Gender Information [...] AM EDT Office Visit Breast Center [address] [place] [address] Molly Kramer APRN.[facility] [address] [place] [address] LT BREAST PAIN WITH DISCOLORATION 05/16/2025 9:30 AM EDT Appointment Mammography [address] [place] [address] LT BREAST PAIN WITH DISCOLORATION documented as of this encounter Visit Diagnoses Not on filedocumented in this encounter Care Teams Director Business Relationship Specialty Start [place] [address] [place] [address] PCP - General Family Medicine 05/30/24 02/13/25 Nilo Prado MD [address] [place] [address] Referring Gastroenterology 08/17/23 [place] [address] [place] [address] Asset Protection Assistant Family Medicine 08/22/24 12/15/24 Lisha Worthington APRN.CNP [address] [place] [address] Asset Protection Assistant Family Medicine 12/16/24 documented as of this encounter
--- OUTSIDE RECORDS SUMMARY | 2025-04-12 07:12 | XMS_ITS | Clinical Summary ---
Author Organization [facility] Address [address] [place] [address] Care Team Providers Care Linux Engineer Name Role Phone Nilo Prado MD Unavailable Lisha Worthington CUSTOMER SERVICE ADVISOR.IRRIGATION SERVICE TECHNICIAN Unavailable Allergies Active Allergy Reactions Criticality Noted Date Comments Aripiprazole Mental Status Change ,Other: See Comments,Unknown 08/19/2022 Bupropion Unknown 07/16/2021 Coconut Swelling Low 11/20/2022 Medications kqutkylrlxjs-jjj-y bria-FA-vit K (BARIATRIC MULTIVITAMINS) 45 mg iron- 800 mcg-120 mcg cap Take by mouth. Active traZODone (DESYREL) 50 mg tablet Take 50 mg by mouth daily at bedtime. Active varenicline (CHANTIX) 0.5 mg (11)- 1 mg () tablet Take 0.5 mg by mouth once daily on Days 1 through 3, THEN 0.5 mg twice daily on Days 4 through 7, THEN 1 mg twice daily on Day 8 and thereafter 42 tablet 03/08/20 Active Additional Information Patient not taking.Reason: Discontinued by Patient, Reported on 07/25/2024 DULoxetine (CYMBALTA) 60 mg capsuleIndications :Bipolar affective disorder in remission (HCC),Borderline personality disorder (HCC),Anxiety disorder, unspecified type Take 1 capsule by mouth two times a day. 03/08/20 24 Active ondansetron orally disintegrating (ZOFRAN ODT) 4 mg disintegrating tablet Take 1 tablet by mouth every 8 hours as needed for nausea/vomiting. 30 tablet 07/25/20 24 Active lamoTRIgine (LAMICTAL) 25 mg tabletIndications: Bipolar affective disorder in remission (HCC),Borderline personality disorder (HCC),Anxiety disorder, unspecified type TAKE 2 TABLETS BY MOUTH TWICE A DAY 360 tablet 02/14/20 25 Active Active Problems Problem Noted Date Diagnosed Date Left breast mass 03/08/2024 Family history of pancreatic cancer 03/08/2024 Family history of cancer 03/08/2024 History of hysterectomy 03/08/2024 Panic disorder 03/08/2024 History of substance abuse 01/31/2024 Overview (03/08/2024): Patient did have a recent relapse with alcohol over the holidays but is 17 days sober again today and back on vivitrol. She does have a history of significant psychiatric disease. I strongly suggested she follow closely with psychiatry in order to further help control the symptoms long-term. Borderline personality disorder 01/04/2024 Chronic alcoholism in remission 01/04/2024 Cyst of pancreas 08/13/2023 Bipolar affective disorder in remission 06/10/20 23 Idiopathic intracranial hypertension 11/20/2022 Depression 11/20/2022 Hx of gastric bypass 11/20/2022 H/O foot surgery 11/20/2022 Anxiety disorder, unspecified 01/31/2022 History of nicotine use 05/23/2020 Resolved Problems Problem Noted Date Diagnosed Date Resolved Date Plantar fasciitis 03/08/2024 03/08/2024 Obesity, Class III, BMI 40-4 9.9 (morbid obesity) 08/31/2023 01/04/2024 Primary hypertension 11/20/2022 024 Poor growth, affecting management of mother, antepartum condition or complication 07/03/2008 03/08/2024 Encounters Date Type Department Care Team Description 02/11/2025 Refill Family Medicine [address] [place] [address] Tevin Villafana DO Refill Request from Last 3 Months Immunizations Immunization Administration Dates Next Due hepatitis B (HepB) vaccine, 3-dose series, age 0 yr - 19 yr (ENGERIX B-PEDS, RECOMBIVAX HB-PEDS) 11/12/2000 influenza (IIV4) vaccine, ag e 6 mo - 64 yr, quadrivalent, PF (AFLURIA, FLUARIX, FLULAVAL, FLUZONE) 07/09/2020 influenza (LAIV) vaccine, na cammy, unspecified formulation 07/09/2020 influenza vaccine, unspecified formulation 07/09 measles mumps rubella (MMR) vaccine (M-M-R II, P RIORIX) 11/12/2000 Family History Medical History Relation Comments Anxiety disorder Brother 2 ALS Father Blood Clots Father Cancer Father bladder Heart Attack Maternal Grandfather Cervical Cancer Maternal Grandmother hysterectom y Heart disease Maternal Grandmother Renal Cell Cancer Maternal Grandmother Cervical Cancer Mother hysterectomy Diabetes Mother Hypertension Mother Pancreatic Cancer Mother Stroke Mother mini stroke Pancreatic Cancer Paternal Grandfather Autism Son Relation Status Comments Brother 1 Alive Brother 2 Alive Father Maternal Grandfather Maternal Grandmother Alive Mother Paternal Grandfather Paternal Grandmother Son Alive Social History Tobacco Use Types Packs/Day Years Used Date Smoking Tobacco: Every Day Cigarettes 1 24 Smokeless Tobacco: Never Tobacco Cessation:Ready to Q uit: Not Asked; Counseling Given: Not Answered Alcohol Use Standard Drinks/Week Comments Yes 0 (1 standard drink = 0.6 oz pur e alcohol) 13 days sober- 07/04/2024 [facility] Progeniqities Answer Date Recorded In the past 12 months has [employer], gas, oil, or water [employer] threatened to shut off services in your [...] often do you attend chur ch or roman catholic services? Never 03/02/2024 Do you belong to any clubs o r organizations such as latter-day groups, unions, fraternal or athletic groups, or [...] Answer Date Recorded PHQ-2 score 2 07/01/2024 [facility] Standard of Occupat ional Health - Occupational Stress [...] place to sleep or slept in a fpc (including now)? No 03/02/2024 Area Deprivation Index Answer Date David rded National Score (1-100), lower number is lower ri sk 78 02/27/2023 State Score (1-10), lower number is lower risk 6 02/27/2023 Data from: https://www.neighborhoodatlas.medicine.[facility]/. Last address used for calculation [address] 02/27/2023 Comments No Sex and Gender Information Value Date Recorded Sex Assigned at Female 02/06/2022 6:05 PM EDT Legal Sex Female 10:01 AM EST Gender Identity Female 01/13/2022 11:52 AM EDT Sexual Orientation Straight 02/06/2022 6: 05 PM EDT Last Filed Vital Signs Vital Sign Reading Time Taken Comments Blood Pressure 122/72 07/25/2024 3:08 PM EST Pulse 67 07/25/2024 3:08 PM EST Temperature 36.6 C (97.9 F) 08/31/2023 11:07 AM EST Respiratory Rate 18 06/12/2010 7:00 AM EDT Oxygen Saturation 100% 07/25/2024 3:08 PM EST Inhaled Oxygen Concentration - - Weight 83.8 kg (184 lb 11.9 oz) 07/25/2024 3:08 PM EST Height 170.2 cm (5' 7 ) 07/04/2024 11:0 1 AM EDT Body Mass Index 28.94 07/04/2024 11:01 AM EDT Plan of Treatment Upcoming Encounters Date Type Department Care Team (Latest Contact Info) Description 05/16/2025 9:00 AM EDT Office Visit Breast Center [address] [place] [address] Molly Kramer, CUSTOMER SERVICE ADVISOR.IRRIGATION SERVICE TECHNICIAN [address] [phone] LT BREAST PAIN WITH DISCOLORATION 05/16/2025 9:30 AM EDT Appointment Mammography [address] [place] [address] LT BREAST PAIN WITH DISCOLORATION Health Maintenance Due Date Last Done Comments Hepatitis B Vaccine (2 of 3 - 3-dose series) 12/10/2000 11/12/2000 DTaP,Tdap,Td Vaccine (1 - Tdap) 12/18/2007 Pneumococcal Vaccine (1 of 2 - PCV) 12/18/2007 Cervical Cancer Screening 2009 Medicare Advantage Annual We llness Visit 09/14/2024 Influenza Vaccine (#1) 2025 0, 07/09/2020, 07/09/2020 HIV Screening Completed 02/25/2024 Hepatitis C Screening Completed 02/25/2024 Medical Devices Implanted Type Area Stock Clipper Device Identifier Shelf Expiration Date Model / Serial / Lot Breast Us Core Bx Clip Implanted:Qty: 1 on 07/11/2024 by Michelle Son MD at [facility] Left: Breast BARD PERIPHERAL VASCULAR 12/09/2026 / / [id number] Description:Ribbon clip Procedures Procedure Name Priority Date/Time Associated Diagnosis Comments HIV 1/2 COMBO WITH REFLEX TO DIFFERENTIATION Routine 02/25/2024 7:51 AM EDT Routine health maintenance HEPATITIS C ANTIBODY IA WITH CONFIRMATION Routine 02/25/2024 7:51 AM EDT Routine health maintenance from Last 3 Months or Most Recently Relevant to Health Maintenance Results * HIV 1/2 COMBO WITH REFLEX TO DIFFERENTIATION (02/25/2024 7:51 AM EDT) HIV 12 Combo (Ag/Ab) Nonreactive Nonreactive 02/25/2024 5:32 PM EDT [facility] HIV-1/2 AB (Confirmatory) 02/25/2024 5:32 PM EDT [facility] Comment:Test not indicated. HIV Interpretation 02/25/2024 5:32 PM EDT [facility] Comment: No evidence of HIV-1 or HIV-2 infection. Should recent infection be suspected, repeat testing may be considered 2-3 weeks after this draw. [place] Rev. Code 3701.243(E): This information has been disclosed to you from confidential records protected from disclosure by state law. You shall make no further disclosure of this information without the specific, written, and informed release of the individual to whom it pertains or as otherwise permitted by state law. A general authorization for the release of medical or other information is not sufficient for the purpose of the release of HIV test results or diagnoses. Blood BLOOD SPECIMEN / Unknown Venipuncture / Unknown 02/25/2024 7:51 AM EDT 02/25/2024 7:51 AM EDT us Elia Min DO LABORATORY Final Resu lt Performing Organization Address [facility]/ZIP Co de Phone Number [facility] [address] [phone], * HEPATITIS C ANTIBODY IA WITH CONFIRMATION (02/25/2024 7:51 AM EDT) Hep C Antibody IA Negative Negative 02/25/2024 6:42 PM EDT [facility] Comment:The result suggests no evidence of active infection with Hepatitis C virus. Should recent infection be suspected, repeat testing may be considered 4-6 weeks after this draw. Blood BLOOD SPECIMEN / Unknown Venipuncture / Unknown 02/25/2024 7:51 AM EDT 02/25/2024 7:51 AM EDT Elia Min DO LABORATORY Final Resu lt Performing Organization Address [facility] Co de Phone Number [facility] [address] [place], [place] [id number], from Last 3 Months or Most Recently Relevant to Health Maintenance Insurance MEDICAID [place] [employer] MEDICARE ADVANTAGE HMO Care Teams Linux Engineer Relationship Specialty Start Date End Date Nilo Prado MD [address] [place] [address] Referring Gastroenterology 08/17/23 Lisha Worthington, CEDRIC.IRRIGATION SERVICE TECHNICIAN [address] [place] [address] Trade Show Specialist Family Medicine 12/16/24
--- OUTSIDE RECORDS SUMMARY | 2025-04-12 07:12 | XMS_ITS | Encounter Summary ---
Author Organization [facility] Address [address] [place] [address] Care Team Providers Care Instructor Correspondence [employer] Name Role Phone Yolande Page SLIP BOX CHANGER Unavailable [phone] Pop Larsen DO Unavailable [phone] Encounter Details Date Type Department Care Team (Latest Contact Info) Description 04/09/2025 Travel Social History Tobacco Use Types Packs/Day Years [...] on file documented as of this encounter Plan of Treatment Upcoming Encounters Date Type Department Care Team (Late st Contact Info) Description 04/13/2025 10:00 AM EDT Consult [facility] [address] [phone] Shaji Francis DO 7[address] [facility] [address] [place], [place] [phone] documented as of this encounter Visit Diagnoses Not on filedocumented in this encounter Care Teams Instructor Correspondence School Relationship Specialty Start Date End Date Yolande Page NP [address] [address] 09/21/24 Pop Larsen DO [address] [phone] Referring Physician Neurology 09/27/24 documented as of this encounter
--- OUTSIDE RECORDS SUMMARY | 2025-04-12 07:12 | XMS_ITS | Encounter Summary ---
Author Organization [email or web address] Address [id number] [address] [place] [address] Care Team Providers Care Blind Hanger Name Role Phone [facility] Primary Care Pr ovider Encounter Details Date Type Department Care Team (Late st Contact Info) Description 07/18/2021 Orders Only [facility] [place] [address] Transcribe, Orders Support User Pain (Primary Dx) Social History Tobacco Use Types Packs/Day Years Used Date Smoking Tobacco: Every Day Cigarettes Smokeless Tobacco: Never Alcohol Use Standard Drinks/Week Comments Yes 0 (1 standard drink = 0.6 oz pur e alcohol) rare PHQ-2 Answer Date Recorded Total Score 0 07/24/2020 Childcare Answer Date Recorded Childcare Unknown 03/13/2020 Employment Answer Date Recorded Employment Unknown 03/13/2020 Purpose - Life Answer Date Recorded Purpose and direction in life Unknown Comments No Sex and Gender Information Value Date Recorded Sex Assigned at Not on file Legal Sex Female 1:22 PM EDT Gender Identity Not on file Sexual Orientation Not on file COVID-19 Exposure Response Date Recorded In the last month, have you been in contact with someone who was confirmed or suspected to have Coronavirus / COVID-19? No / Unsure 07/16/2021 9:33 AM EDT documented as of this encounter Plan of Treatment Not on file documented as of this encounter Results * MR abdomen with and without contrast (05/02/2021 6:50 AM EDT) us Scanning Provider External IMG MRI ORDERABLES Fi nal Result documented in this encounter Visit Diagnoses Diagnosis Pain- Primary Generalized pain documented in this encounter Additional Health Concerns Assessment Noted Time PHQ-9 Depression Total Score: 0 07/24/20 20 3:08 PM EST documented as of this encounter Care Teams Blind Hanger Relationship Specialty Start Date End Date [facility], [place] [address] PCP - General 07/10/21 documented as of this encounter
--- OUTSIDE RECORDS SUMMARY | 2025-04-12 07:12 | XMS_ITS | Encounter Summary ---
Author Organization [facility] Address [address] [facility] [place] [address] Care Team Providers Care Pull Socket Assembler Name Role Phone Yolande Page CLINICAL RESEARCH MANAGER Unavailable [phone] Pop Larsen DO Unavailable [phone] Encounter Details Date Type Department Care Team (Late Contact Info) Description 09/22/2024 Orders Only CYNDI BINTA [address] [place] [phone] Pop Larsen DO [address] [place] [address] Social History Tobacco Use Types Packs/Day Years [...] Encounters Date Type Department Care Team (Late Contact Info) Description 04/13/2025 10:00 AM EDT Consult [facility] [address] [facility] [address] [place] [address] Shaji Francis, DO [address] [facility] [address] [place] [address] documented as of this encounter Procedures Procedure Name Priority Date/Time Associated Diagnosis Comments EMG AND NERVE CONDUCTION STUDY Routine 07/09/2023 2:30 PM EDT EMG AND NERVE CONDUCTION STUDY Routine 04/28/2020 2:32 PM EDT EMG AND NERVE CONDUCTION STUDY Routine 06/23/2018 2:34 PM EDT documented in this encounter Results * EMG AND NERVE CONDUCTION STUDY (07/09/2023 2:30 PM EDT) us Pop Larsen DO NEUROLOGY ORDERABLES Ning l Result * EMG AND NERVE CONDUCTION STUDY (04/28/2020 2:32 PM EDT) us Bruce Pennington DPM FACFAS NEUROLOGY ORDERABLES Fin al Result * EMG AND NERVE CONDUCTION STUDY (06/23/2018 2:34 PM EDT) us Kenrick Lee DO NEUROLOGY ORDERABLES Final Resul t documented in this encounter Visit Diagnoses Not on filedocumented in this encounter Care Teams Pull Socket Assembler Relationship Specialty Start Date End Date Yolande Page NP [place] [id number] [place] [address] 09/21/24 Pop Larsen DO [facility] [address] [place] [address] Referring Physician Neurology 09/27/24 documented as of this encounter
--- OUTSIDE RECORDS SUMMARY | 2025-04-12 07:12 | XMS_ITS | Clinical Summary ---
Author Organization [facility] Address [address] [place] [address] Phone Care Team Providers Care Information Security Engineer Name Role Phone Generic Provider, No Assigned Pcp MD Primary Car e Provider Unavailable Allergies Active Allergy Reactions Criticality Noted Date Comments Aripiprazole Other 02/24/2023 Bupropion Other 07/16/2021 Coconut Swelling Low 07/24/2020 Coconut Flavor Anaphylaxis High 05/09/2020 coconut Coconut Oil, Hydrogenated Itching Medium 07/18/2020 Medications DULoxetine (Cymbalta) [address] capsule Take 90 mg by mouth. 02/29/2020 Active multivitamin-mi c-lbgu-VV-vit K (Bariatric Multivitamins) 45 mg iron- 800 mcg-120 mcg capsule Take by mouth. Active traZODone (Desyrel) 100 mg tablet Take 1 tablet (100 mg) by mouth once daily at bedtime. 10/29/2022 Active lamoTRIgine (LaMICtal) 25 mg tablet Take 2 tablets (50 mg) by mouth twice a day. 01/06/2024 Active Vraylar 1.5 mg capsule Take 1 capsule (1.5 mg) by mouth early in the morning.. 01/03/2025 Active Mounjaro 2.5 mg/0.5 mL pen injector Inject 2.5 mg under the skin every 7 days. 06/04/2024 Active Active Problems Problem Noted Date Diagnosed Date Current smoker 08/08/2024 Other chest pain 08/08/2024 Family history of ischemic heart disease 024 BMI 29.0-29.9,adult 08/08/2024 Shortness of breath 08/08/2024 Palpitations 08/08/2024 Bipolar affective disorder in remission (Multi) 06/10/2023 Low iron 05/27/2023 Depression 11/20/2022 H/O foot surgery 11/20/2022 Idiopathic intracranial hypertension 11/20/2022 Primary hypertension 11/20/2022 Intestinal malabsorption 11/19/2022 History of gastric bypass 01/07/2021 Vitamin D deficiency 06/27/2020 Bilateral foot pain 05/23/2020 Borderline personality disorder (Multi) 05/23/20 20 Flat feet 05/23/2020 Gastroesophageal reflux disease without esophagi tis 05/23/2020 Arthritis 05/16/2020 Anxiety and depression 05/16/2020 Bipolar disease, chronic (Multi) 05/16/2020 Poor growth, affecting management of mother, antepartum condition or complication ([facility]) 07/03/2008 Acute pharyngitis 12/01/2002 Streptococcal sore throat 12/01/2002 Abdominal pain 06/13/2002 Acute suppurative otitis med ia without spontaneous rupture of ear drum 06/13/2002 Lumbago 06/13/2002 Sprain of ankle 12/06/2001 Encounters Date Type Department Care Team Description 02/09/2025 Scanned Document [facility] [address] [place] [address] Scanning, Generic Provider 01/25/[address] [address] Price Burden LPN from Last 3 Months Immunizations Immunization Administration Dates Next Due Hepatitis B vaccine, 19 yrs and under (RECOMBIVAX, ENGERIX) 11/12/2000 MMR vaccine, subcutaneous (MMR II) 11/12/2000 Family History Medical History Relation Name Comments Hypertension Brother ALS Father Hypertension Father Coronary artery disease Maternal Grandfather Heart attack Maternal Grandfather Heart attack Mother Hypertension Mother Pancreatic cancer Mother Relation Name Status Comments Brother Father Maternal Grandfather Mother Social History Tobacco Use Types Packs/Day Years Used Date Smoking Tobacco: Every Day Cigarettes Smokeless Tobacco: Never Tobacco Cessation:Counseling Given: Yes Alcohol Use Standard Drinks/Week Comments Never 0 (1 standard drink = 0.6 oz pur e alcohol) Comments Unknown Sex and Gender Information Value Date Recorded Sex Assigned at Female 09/11/2024 9:48 AM EST Legal Sex Female 2:23 PM EST Gender Identity Female 09/11/2024 9:48 AM EST Sexual Orientation Choose not to disclose 2023 9:48 AM EST Last Filed Vital Signs Vital Sign Reading Time Taken Comments Blood Pressure 118/76 09/13/2024 9:40 AM EST Pulse 75 08/08/2024 3:28 PM EST Temperature - - Respiratory Rate - - Oxygen Saturation - - Inhaled Oxygen Concentration - - Weight 85.3 kg (188 lb) 09/13/2024 9:40 AM EST Height 170.2 cm (5' 7 ) 09/13/2024 9:40 AM EST Body Mass Index 29.44 09/13/2024 9:40 AM EST Plan of Treatment Health Maintenance Due Date Last Done Comments HIV Screening 1988 Lipid Panel 1988 Medicare Annual Wellness Visit (AWV) 1988 Hepatitis B Vaccines (2 of 3 - 3-dose series) 12/10/2000 11/12/2000 Hepatitis C Screening 2006 Pneumococcal Vaccine: Pediatrics and At-Risk Adult Patients (1 of 2 - PCV) 12/18/2007 HPV/Cotest 2009 DTaP/Tdap/Td Vaccines (1 - Tdap) 2010 HPV Vaccines (1 - 3-dose standard series) 12/18/2015 Cervical Cancer Screening 06/10/2016 Pap Smear 06/10/2016 06/10/2013, 07/15, 08/31/2009, Additional history exists COVID-19 Vaccine ( - season) 2024 Influenza Vaccine (#1) 2025 07/09/2020 Diabetes Screening 02/24/2027 02/25/2024, 1 10/12/2022, 07/18/2022, Additional history exists Zoster Vaccines (1 of 2) 2038 MMR Vaccines Completed 11/12/2000 HIB Vaccines Aged Out No longer eligi ble based on patient's age to complete this topic Hepatitis A Vaccines Aged Out No long er eligible based on patient's age to complete this topic IPV Vaccines Aged Out No longer eligi ble based on patient's age to complete this topic Meningococcal Vaccine Aged Out No timbo mitchel eligible based on patient's age to complete this topic Rotavirus Vaccines Aged Out No longer eligible based on patient's age to complete this topic Procedures Procedure Name Priority Date/Time Associated Diagnosis Comments ECHOCARDIOGRAM 02/09/2025 CONVERTED DRAPERY SEAMSTRESS CYTOLOGY Routine 3 12:00 AM EDT from Last 3 Months or Most Recently Relevant to Health Maintenance Results * Echocardiogram (02/09/2025) Narrative 02/09/2025 Ordered by an unspecified provider. us Generic Provider Scanning CV ECHO PROCEDURES Fin al Result * CONVERTED DRAPERY SEAMSTRESS CYTOLOGY (06/10/2013 12:00 AM EDT) Pathology Report Date of Procedure: 06/10/2013 Pathologist: Date Reported: 06/15/2013 Date Received: 06/13/2013 Submitting Physician: Conversion FINAL CYTOLOGICAL INTERPRETATION Squamous and/or Glandular Abnormality Satisfactory for evaluation. Transformation zone present. 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 - SCREENED BY: MICAH BHAKTA (ASCP) Note: Pap smear testing is a screening procedure and subject to both false negative and false positive results as evidenced by published data. Your patient's test result should be interpreted in this context, together with patient's history and clinical findings. - Signed by: MAEGAN ARIAS 06/15/13 Electronically Signed Out By [facility], Cytology/ By the signature on this report, the individual or group listed as making the Final Interpretation/Latosha gnosis certifies that they have reviewed this case. Educational Note: Cervical cytology is a screening procedure primarily for squamous cancers and precursors and has associated false-negative and false-positive results as evidenced by published data. Your patient's test should be interpreted in this context, together with patient's history and clinical findings. Regular sampling and follow-up of unexplained clinical signs and symptoms are recommended to minimize false negative results. Clinical History Date of Last Menstrual Period: (Not Entered) - PREVIOUS CASES [id number] S-1414-10 [id number] G-6425-08 S-7040-08 S-5799-08 G-2246 -08 - HISTORY & COMMENTS Previous Abnormal PAP and/or Biopsy LSIL Source of Specimen A: Unknown Part Type [facility] Department of Pathology [address] [place] [address] [facility] CONVERTED FINAL DIAGNOSIS Satisfactory for evaluation. Transformation zone present. 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 - SCREENED BY: MICAH BHAKTA (ASCP) Note: Pap smear testing is a screening procedure and subject to both false negative and false positive results as evidenced by published data. Your patient's test result should be interpreted in this context, together with patient's history and clinical findings. - Signed by: MAEGAN ARIAS 06/15/13 [facility] CLINICAL DIAGNOSIS-HIST ORY - PREVIOUS CASES [id number] S-1414-10 [id number] G-6425-08 S-7040-08 S-5799-08 G-2246 -08 - HISTORY & COMMENTS Previous Abnormal PAP and/or Biopsy LSIL [facility] CONVERTED SLIDE-BLOCK DESCRIPTION - TISSUES - 1. CERVICAL/VAGINAL THIN PREP - [facility] CONVERTED REPORT COMMENTS [facility] Case # [id number] DOS: 06/10/13 - ORD PHYSICIAN: Clinton Hernandez MD - ORD PROCEDURES - CYTO PAP TLP MAN SCR /1 CYTO PAP INTERP / - COPIES TO: Clinton Hernandez MD - Status History - ENT 06/13/13 0948 PRICE FELIX 06/15/13 1321 MAEGAN ARIAS 06/15/13 1325 MAEGAN ARIAS - [facility] Conversion Report - [facility] CONVERTED FINAL REPORT PDF LINK TO COPY AND PASTE \copathshare\copa th\PDF [id number] [facility] Unrecognized Part Type 06/10/2013 06/13/2013 9:48 AM EDT Copath Conversion LAB CYTOLOGY ORDERABLES Final Result [facility] [address] [place] [address] from Last 3 Months or Most Recently Relevant to Health Maintenance Insurance MEDICAID DUAL ADVANTAGE MEDICAID ANTHEM DUAL ADVANTAGE Care Teams Information Security Engineer Relationship Specialty Start Date End Date Generic Provider, No Assigned Pcp, [place] [id number] PCP - General Telephone Ad Taker 11/03/24
--- OUTSIDE RECORDS SUMMARY | 2025-04-12 07:12 | XMS_ITS | Encounter Summary ---
Author Organization [facility] Address [address] [place] [address] Care Team Providers Care Change Person Name Role Phone Nilo Prado MD Unavailable Tevin Villafana DO Primary Care Provider [phone] Natacha Schroeder DO Unavailable Lisha Worthington MANAGEMENT LIAISON.ANTIQUE CLOCKS REPAIRER Unavailable Source Comments In the event this information is protected by the Federal Confidentiality of Alcohol and Drug AbusePatient Records regulations: The Federal rules restrict any use of the information to criminally investigate or prosecute any alcohol or drug abuse patient.[facility] Reason for Referral * Diagnostic Procedure Only (Routine) - Closed Specialty Diagnoses / Procedures Referred By Simona bailey Referred To Contact [facility] Diagnoses Abnormal mammogram of left breast Procedures US BIOPSY BREAST LEFT BX BREAST W/DEVICE 1ST LESION ULTRASOUND Mary Lou Allen MD [address] [address] Phone: tel: fax: [facility] [address] [place] [phone] Referral ID Status Reason Start Date Expiration Date V isits Requested Visits Authorized [id number] Closed Auto-Generate d Referral 07/05/2024 08/04/2025 1 1 Encounter Details Date Type Department Care Team (Late st Contact Info) Description 07/05/2024 Radiology Mammography [address] [place] [address] Mary Lou Cote MD [address] [place] [address] Social History Tobacco Use Types Packs/Day Years Used Date Smoking Tobacco: Every Day Cigarettes 1 24 Smokeless Tobacco: Never Alcohol Use Standard Drinks/Week Comments Yes 0 (1 standard drink = 0.6 oz pur e alcohol) 13 days sober- 07/04/2024 [facility] Utilities Answer Date Recorded In the [...] often do you attend chur ch or jew services? Never 03/02/2024 Do you belong to any clubs o r organizations such as jainism groups, unions, fraternal or athletic groups, or [...] Answer Date Recorded PHQ-2 score 2 07/01/2024 [facility] [place] [facility] Occupat ional Health - Occupational Stress [...] place to sleep or slept in a detention (including now)? No 03/02/2024 Area Deprivation Index Answer Date David rded National Score (1-100), lower number is lower ri sk 78 02/27/2023 State Score (1-10), lower number is lower risk 6 02/27/2023 Data from: https://www.neighborhoodatlas.medicine.[facility].edu/. Last address used for calculation [address] 02/27/2023 Comments No Sex and Gender Information [...] AM EDT Office Visit Breast Center [id number] Molly Kramer, CEDRIC.ANTIQUE CLOCKS REPAIRER [address] [place] [address] LT BREAST PAIN WITH DISCOLORATION 05/16/2025 9:30 AM EDT Appointment Mammography [phone] LT BREAST PAIN WITH DISCOLORATION documented as of this encounter Results * US BIOPSY BREAST LEFT (07/11/2024 9:15 AM EDT) Anatomical Region Laterality Modality Breast Left Other 07/11/2024 9:15 AM EDT Addenda Addendum by Provider, [facility] [place] on 07/13/2024 4:01 PM EDT * * *Final Report* * * * * * SEE BOTTOM OF REPORT FOR ADDENDED TEXT * * * DATE OF EXAM: Jul 11 2024 9:15AM [facility] 0[facility] - [place] US BIOPSY BREAST LT / PROCEDURE REASON: Abnormal mammogram of left breast * * * * Physician Interpretation * * * * RESULT: [facility] [address] [place] [address] - - - - - - - [...] Alexandra Son M.D. Electronically signed on: 07/11/2024 R D Manager: SERGIO Transcribe Date/Time: Jul 11 2024 8:52A Dictated by: ALEXANDRA SON MD This examination was interpreted and the report reviewed and electronically signed by: ALEXANDRA SON MD on Jul 11 2024 9:45AM EST This document has been addended by: ALEXANDRA SON MD on Jul 13 2024 3:56PM EST Mary Lou Cote MD [facility] Edited Result - Final documented in this encounter Visit Diagnoses Diagnosis Abnormal mammogram of left breast- Primary Abnormal mammogram of left breast documented in this encounter Care Teams Change Person Relationship Specialty [place] [address] [place] [address] PCP - General Family Medicine 05/30/24 02/13/25 Nilo Prado MD [address] [address] Referring Gastroenterology 08/17/23 [place] [address] [place] [address] [facility] 08/22/24 12/15/24 Lisha Worthington APRN.CNP [address] [place] [address] [facility] 12/16/24 documented as of this encounter
--- OUTSIDE RECORDS SUMMARY | 2025-04-12 07:12 | XMS_ITS | Encounter Summary ---
Author [facility] Address [address] [facility], [address] [place] [address] Care Team Providers Care Rolls Mill Operator Name Role Phone Jennie Durand DO Primary Care Provider Reason for Visit * Reason Comments Medication Refill Encounter Details Date Type Department Care Team (Late st Contact Info) Description 09/05/2020 Refill [facility] Part of [address] [place] [address] Koki Chan, HEADLINER INSTALLER - DUSTING AND BRUSHING MACHINE OPERATOR Medication Refill Social History Tobacco Use Types Packs/Day Years Used Date Smoking Tobacco: Former Cigarettes Q uit: 03/14/2020 Smokeless Tobacco: Never Comments Unknown Sex and Gender Information Value Date Recorded Sex Assigned at Female 11/29/2024 9:44 AM EDT Legal Sex Female 11:40 AM EDT Gender Identity Not on file Sexual Orientation Not on file documented as of this encounter Plan of Treatment Not on file documented as of this encounter Visit Diagnoses Diagnosis Vitamin D deficiency Unspecified vitamin D deficiency documented in this encounter Additional Health Concerns Infection Onset Date Last Indicated Resolved Time COVID-19 (Rule Out) 09/24/2020 09/24/2020 09/25/19 21 11:10 AM EST COVID-19 (Rule Out) 10/26/2020 10/26/2020 10/28/19 21 6:12 AM EST COVID-19 (Rule Out) 01/03/2021 01/03/2021 01/05/20 21 10:07 AM EDT documented as of this encounter Care Teams Rolls Mill Operator Relationship Specialty Start Date End Date Jennie Durand DO [address] [place] [address] PCP - General Family Medicine 11/19/22 documented as of this encounter
--- OUTSIDE RECORDS SUMMARY | 2025-04-12 07:12 | XMS_ITS | Encounter Summary ---
Author Organization [facility] Address [facility] [place] [address] Care Team Providers Care Human Development Professor Name Role Phone Nilo Prado MD Unavailable Elia Min DO Primary Care Provider [phone] Tevin Villafana DO Primary Care Provider [phone] Natacha Schroeder DO Unavailable Lisha Worthington WOOD HEEL CEMENTER.LINEN CONTROLLER Unavailable Source Comments In the event this information is protected by the Federal Confidentiality of Alcohol and Drug AbusePatient Records regulations: The Federal rules restrict any use of the information to criminally investigate or prosecute any alcohol or drug abuse patient.[facility] Encounter Details Date Type Department Care Team (Late st Contact Info) Description 10/14/2023 Patient Msg [facility] [address] [place], [place] [id number] Provider, [facility] Social History Tobacco Use Types Packs/Day Years [...] 07/03/2022 How often do you attend chur or mormonism services? Never 07/03/2022 Do you belong to any clubs o r organizations such as protestant groups, unions, fraternal or athletic groups, or [...] Answer Date Recorded PHQ-2 score 1 02/20/2023 [facility] - Occupational Stress Questionnaire Answer Date Recorded [...] place to sleep or slept in a fdc (including now)? No 07/03/2022 Area Deprivation Index Answer Date David rded National Score (1-100), lower number is lower ri sk 78 02/27/2023 State Score (1-10), lower number is lower risk 6 02/27/2023 Data from: https://www.neighborhoodatlas.medicine.[facility]/. Last address used for calculation [address] [place] [address] 02/27/2023 Comments Unknown Sex and Gender Information [...] AM EDT Office Visit Breast Center [phone] Molly Kramer APRN.LINEN CONTROLLER [address] [place], [place] [phone] LT BREAST PAIN WITH DISCOLORATION 05/16/2025 9:30 AM EDT Appointment Mammography [phone] LT BREAST PAIN WITH DISCOLORATION documented as of this encounter Visit Diagnoses Not on filedocumented in this encounter Care Teams Human Development Professor Relationship Specialty Start Date End Date Elia Min DO [address] [place] [address] PCP - General Family Medicine 01/04/24 05/29/24 [place] [address] [place] [address] PCP - General Family Medicine 05/30/24 02/13/25 Nilo Prado MD [address] [place] [address] Referring Gastroenterology 08/17/23 [place] [address] [place] [address] Certified Financial Planner Family Medicine 08/22/24 12/15/24 Lisha Worthington, CEDRIC.LINEN CONTROLLER [address] [place] [address] Certified Financial Planner Family Medicine 12/16/24 documented as of this encounter
--- OUTSIDE RECORDS SUMMARY | 2025-04-12 07:12 | XMS_ITS | Encounter Summary ---
Author Organization [facility] Address [address] [place] [address] Care Team Providers Care Bobbin Cleaner Hand Name Role Phone Nilo Prado MD Unavailable Elia Min DO Primary Care Provider [phone] Tevin Villafana DO Primary Care Provider [phone] Natacha Schroeder DO Unavailable Lisha Worthington ELECTRON MICROSCOPIST.FINISHER WALLBOARD AND PLASTERBOARD Unavailable Source Comments In the event this information is protected by the Federal Confidentiality of Alcohol and Drug AbusePatient Records regulations: The Federal rules restrict any use of the information to criminally investigate or prosecute any alcohol or drug abuse patient.[facility] Encounter Details Date Type Department Care Team (Late st Contact Info) Description 06/10/2023 Patient Msg Neurology [address] [place] [address] Margo Manzano MD [address] [place] [address] Request an Appointment Social History Tobacco Use Types Packs/Day Years [...] often do you attend chur ch or lutheran services? Never 07/03/2022 Do you belong to any clubs o r organizations such as confucianist groups, unions, fraternal or athletic groups, or [...] Answer Date Recorded PHQ-2 score 1 02/20/2023 [facility]ational Stress Questionnaire Answer Date [...] slept in a long-term (including now)? No 07/03/2022 Area Deprivation Index Answer Date David rded National Score (1-100), lower number is lower ri sk 78 02/27/2023 State Score (1-10), lower number is lower risk 6 02/27/2023 Data from: https://www.neighborhoodatlas.medicine.[facility].edu/. Last address used for calculation [address] [place] [address] 02/27/2023 Comments Unknown Sex and Gender Information [...] AM EDT Office Visit Breast Center [address] [phone] Molly Kramer APRN.FINISHER WALLBOARD AND PLASTERBOARD [address] [place] [address] LT BREAST PAIN WITH DISCOLORATION 05/16/2025 9:30 AM EDT Appointment Mammography [address] [phone] BREAST PAIN WITH DISCOLORATION documented as of this encounter Visit Diagnoses Not on filedocumented in this encounter Care Teams Bobbin Cleaner Hand Relationship Specialty Start Date End Date Elia Min DO [address] [place] [address] PCP - General Family Medicine 01/04/24 05/29/24 [place] [address] [place] [address] PCP - General Family Medicine 05/30/24 02/13/25 Nilo Prado MD [address] [place] [address] Referring Gastroenterology 08/17/23 [place] [address] [place] [address] Oracle Analyst Family Medicine 08/22/24 12/15/24 Lisha Worthington APRN.IRENE [address] [place] [address] Oracle Analyst Family Medicine 12/16/24 documented as of this encounter
--- OUTSIDE RECORDS SUMMARY | 2025-04-12 07:12 | XMS_ITS | Clinical Summary ---
Author Organization [employer] [facility] Address [id number] [address] [place] [address] Care Team Providers Care Supervisor Pole Yard Name Role Phone [facility] Primary Care Pr ovider Allergies Active Allergy Reactions Criticality Noted Date Comments Coconut Swelling 07/24/2020 Bupropion Hcl 07/16/2021 Medications DULoxetine (CYMBALTA) 60 mg capsule Take 90 mg by mouth nightly. Active LORazepam (ATIVAN) 1 mg tablet Take 1 mg by mouth every 8 (eight) hours as needed for anxiety. Active topiramate (TOPAMAX) 100 mg tablet Take 100 mg by mouth nightly. Active QUEtiapine (SEROquel) 100 mg tablet Take 100 mg by mouth nightly. Active NON FORMULARY Rexalti 3 mg oral nightly Active pantoprazole (PROTONIX) 20 mg EC tablet Take 20 mg by mouth nightly. Active cholecalciferol , vitamin D3, 50,000 units tablet Take 50,000 Units by mouth once a week. Active cyclobenzaprine (FLEXERIL) 10 mg tablet Take 1 tablet (10 mg total) by mouth 3 (three) times a day as needed for muscle spasms. 30 tablet 0 Active Additional Information Patient not taking.Reported on 07/16/2021 ALPRAZolam (XANAX) 0.5 mg tablet Active Active Problems No known active problems Family History Medical History Relation Name Comments ALS Father Cancer Father bladder Hypertension Father Heart disease Maternal Grandfather Cancer Maternal Grandmother kidney Heart disease Maternal Grandmother Cancer Mother stage 4 pancrea tic Diabetes Mother Heart disease Mother Hypertension Mother Stroke Mother Cancer Paternal Grandfather pancrea tic Drug abuse Paternal Grandfather Hypertension Paternal Grandfather Stroke Paternal Grandfather Relation Name Status Comments Father Alive Maternal Grandfather Maternal Grandmother Alive Mother Paternal Grandfather Paternal Grandmother Social History Tobacco Use Types Packs/Day Years [...] Sign Reading Time Taken Comments Blood Pressure 112/80 07/16/2021 9:44 AM EDT Pulse 68 07/16/2021 9:44 AM EDT Temperature 36 C (96.8 F) 07/27/2020 11:31 AM EST Respiratory Rate 22 07/27/2020 12:38 PM EST Oxygen Saturation 93% 07/27/2020 12:38 PM EST Inhaled Oxygen Concentration - - Weight 93.7 kg (206 lb 9.6 oz) 07/16/2021 9:44 AM EDT Height 170.2 cm (5' 7 ) 07/16/2021 9:44 AM EDT Body Mass Index 32.36 07/16/2021 9:44 AM EDT Plan of Treatment Health Maintenance Due Date Last Done Comments Depression Screening 2000 Tobacco Screening 2000 Adult BMI Screening 2006 DTaP,Tdap and Td Vaccines (1 - Tdap) 12/18/2007 Pap Smear 2009 COVID-19 Vaccine ( season) 2024, 04/08/2021 Influenza Vaccine 05/15/2025 07/10/2021, 07/09/2020 Medical Devices Implanted Type Area Welt Drawer Device Identifier Shelf Expiration Date Model / Serial / Lot Anch Sut 4.75mm 2 [facility] [id number] - [id number] Implanted:Qty: 1 on 07/27/2020 by Octavio Sims DPM at [facility] [place] Right Medial: Ankle [employer] 06/06/2023 [id number] / [id number] / [id number] Nl Im 52mm 5.5mm 4 Hl Hi Rt - [id number] - [id number] Implanted:Qty: 1 on 07/27/2020 by Octavio Sims DPM at [facility] Nail Right: Foot [employer] 07/27/2024 [id number]-T1-523 2 / [id number] / NA Pg Fx 3.5mm 18mm Thrd Phntm - [id number] - [id number] Implanted:Qty: 1 on 07/27/2020 by Octavio Sims DPM at [facility] Orthopedic Implant Right: Foot [employer] 07/27/2024 N50-G1-635 8 / [id number] / NA Pg Fx 3.5mm 16mm Thrd Phntm - [id number] - [id number] Implanted:Qty: 1 on 07/27/2020 by Octavio Sims DPM at [facility] Orthopedic Implant Right: Foot [employer] 07/27/2024 C01-J4-587 6 / [id number] / NA Pg Fx 3.5mm 12mm Antirotation - [id number] - [id number] Implanted:Qty: 1 on 07/27/2020 by Octavio Sims DPM at [facility] Orthopedic Implant Right: Foot [employer] 07/27/2024 T73-P8-816 2 / [id number] / NA V92 Cellular Bone Matrix Implanted:Qty: 1 on 07/27/2020 by Octavio Sims DPM at [facility] Right Lateral: Ankle [employer] 08/07/2022 C98-[id number] 00 / [id number] / [id number] Titan 3-D Wedge Implanted:Qty: 1 on 07/27/2020 by Octavio Sims DPM at [facility] Right Lateral: Ankle [employer] 03/13/2022 [id number] / [id number] / [id number] Insurance MEDICAID [place] [employer] MEDICARE Care Teams Supervisor Pole Yard Relationship Specialty Start Date End Date [facility], [address] [address] PCP - General 07/10/21
--- OUTSIDE RECORDS SUMMARY | 2025-04-12 07:12 | XMS_ITS | Encounter Summary ---
Author Organization [facility] Address [address] [place] [address] Phone Care Team Providers Care Director Hedis Name Role Phone Generic Provider, No Assigned Pcp Primary Car e Provider Unavailable Encounter Details Date Type Department Care Team (Late st Contact Info) Description 12/10/2023 Scanned Document [facility] [address] Virtual [place] [id number] Scanning, Generic Provider Social History Tobacco Use [...] on file documented as of this encounter Procedures Procedure Name Priority Date/Time Associated Diagnosis Comments OUTSIDE IMAGING SCAN 12/10/2023 documented in this encounter Results * OUTSIDE IMAGING SCAN (12/10/2023) Anatomical Region Laterality Modality Other Narrative 12/10/2023 Ordered by an unspecified provider. us Generic Provider Scanning OUTSIDE SCAN Final Result documented in this encounter Visit Diagnoses Not on filedocumented in this encounter Care Teams Director Hedis Relationship Specialty Start Date End Date Generic Provider, No Assigned PcpMD NONE [facility] [place] [address] PCP - General Marketing Services Vice President 11/03/24 documented as of this encounter
--- OUTSIDE RECORDS SUMMARY | 2025-04-12 07:12 | XMS_ITS | Encounter Summary ---
Author Organization [facility] Address [address] [place] [address] Care Team Providers Care Log Chipper Name Role Phone Nilo Prado MD Unavailable Elia Min DO Primary Care Provider [phone] Tevin Villafana DO Primary Care Provider [phone] Natacha Schroeder DO Unavailable Lisha Worthington VEST FINISHER.PLANNING ASSOCIATE Unavailable Source Comments In the event this information is protected by the Federal Confidentiality of Alcohol and Drug AbusePatient Records regulations: The Federal rules restrict any use of the information to criminally investigate or prosecute any alcohol or drug abuse patient.[facility] Encounter Details Date Type Department Care Team (Late st Contact Info) Description 01/27/2023 [place] [address] Provider, Ccf Questionnaire Submission Social History Tobacco Use Types Packs/Day Years [...] often do you attend chur ch or episcopal services? Never 07/03/2022 Do you belong to any clubs o r organizations such as oriental orthodox groups, unions, fraternal or athletic groups, or [...] care, and heating? Not very hard 07/03/2022 [facility] Occupat ional Health - Occupational Stress [...] place to sleep or slept in a snf (including now)? No 07/03/2022 Area Deprivation Index Answer Date David rded National Score (1-100), lower number is lower ri sk 73 09/29/2022 State Score (1-10), lower number is lower risk N ot on file 09/29/2022 Data from: https://www.neighborhoodatlas.medicine.[facility].edu/. Last address used for calculation [address] [place] [address] 09/29/2022 Comments Unknown Sex and Gender Information Value [...] AM EDT Office Visit Breast Center [address] [place] [address] Molly Kramer APRN.PLANNING ASSOCIATE [address] [place], [place] [phone] LT BREAST PAIN WITH DISCOLORATION 05/16/2025 9:30 AM EDT Appointment Mammography [address] [phone] LT BREAST PAIN WITH DISCOLORATION documented as of this encounter Visit Diagnoses Not on filedocumented in this encounter Care Teams Log Chipper Relationship Specialty Start Date End Date Elia Min DO [address] [address] PCP - General Family Medicine 01/04/24 05/29/24 [place] [address] [place] [address] PCP - General Family Medicine 05/30/24 02/13/25 Nilo Prado MD [address] [address] Referring Gastroenterology 08/17/23 [place] [address] [place] [address] Newspaper Subscription Solicitor Family Medicine 08/22/24 12/15/24 Lisha Worthington APRN.PLANNING ASSOCIATE [address] [place] [address] Newspaper Subscription Solicitor Family Medicine 12/16/24 documented as of this encounter
--- OUTSIDE RECORDS SUMMARY | 2025-04-12 07:12 | XMS_ITS | Encounter Summary ---
Author Organization [facility] Address [address] [place] [address] Phone Care Team Providers Care Amusement Ride Operator Name Role Phone Generic Provider, No Assigned Pcp MD Primary Car e Provider Unavailable Encounter Details Date Type Department Care Team (Late st Contact Info) Description 02/09/2025 Scanned Document [facility] [address] [place] [id number] Scanning, Generic Provider Social History Tobacco Use [...] Priority Date/Time Associated Diagnosis Comments ECHOCARDIOGRAM 02/09/2025 documented in this encounter Results * Echocardiogram (02/09/2025) Narrative 02/09/2025 Ordered by an unspecified provider. us Generic Provider Scanning CV ECHO PROCEDURES Fin al Result documented in this encounter Visit Diagnoses Not on filedocumented in this encounter Care Teams Amusement Ride Operator Relationship Specialty Start Date End Date Generic Provider, No Assigned PcpMD NONE [facility] [place] [address] PCP - General Java J2Ee Application Developer 11/03/24 documented as of this encounter
--- OUTSIDE RECORDS SUMMARY | 2025-04-12 07:12 | XMS_ITS | Encounter Summary ---
Author Organization [facility] [place] [address] Care Team Providers Care Nut Feeder Name Role Phone Nilo Prado MD Unavailable Tevin Villafana DO Primary Care Provider [phone] Natacha Schroeder DO Unavailable Lisha Worthington LOBSTER CATCHER.DISTRIBUTION SALES MANAGER Unavailable Source Comments In the event this information is protected by the Federal Confidentiality of Alcohol and Drug AbusePatient Records regulations: The Federal rules restrict any use of the information to criminally investigate or prosecute any alcohol or drug abuse patient.[facility] Encounter Details Date Type Department Care Team (Late st Contact Info) Description 07/14/2024 Patient Msg General Surgery [address] [phone] Sonido Aguirre MD [address] [place] [address] Appointment Request Social History Tobacco Use Types Packs/Day Years Used Date Smoking Tobacco: Every Day Cigarettes 1 24 Smokeless Tobacco: Never Alcohol Use Standard Drinks/Week Comments Yes 0 (1 standard drink = 0.6 oz pur e alcohol) 13 days sober- 07/04/2024 [facility] Utilities Answer Date Recorded In the past [...] often do you attend chur ch or synagogue services? Never 03/02/2024 Do you belong to any clubs o r organizations such as voodoo groups, unions, fraternal or athletic groups, or [...] Answer Date Recorded PHQ-2 score 2 07/01/2024 [facility] Occupat ional Health - Occupational [...] place to sleep or slept in a longterm (including now)? No 03/02/2024 Area Deprivation Index Answer Date David rded National Score (1-100), lower number is lower ri sk 78 02/27/2023 State Score (1-10), lower number is lower risk 6 02/27/2023 Data from: https://www.neighborhoodatlas.medicine.[facility].edu/. Last address used for calculation [address] [place] [address] 02/27/2023 Comments No Sex and Gender Information [...] AM EDT Office Visit Breast Center [address] [phone] Molly Kramer APRN.DISTRIBUTION SALES MANAGER [address] [place] [address] LT BREAST PAIN WITH DISCOLORATION 05/16/2025 9:30 AM EDT Appointment Mammography [address] [address] BREAST PAIN WITH DISCOLORATION documented as of this encounter Visit Diagnoses Not on filedocumented in this encounter Care Teams Nut Feeder Relationship Specialty Start [place] [address] [place] [address] PCP - General Family Medicine 05/30/24 02/13/25 Nilo Prado MD [address] [place] [address] Referring Gastroenterology 08/17/23 [place] [address] [place] [address] Code And Test Clerk Family Medicine 08/22/24 12/15/24 Lisha Worthington, CEDRIC.DISTRIBUTION SALES MANAGER [address] [place] [address] Code And Test Clerk Family Medicine 12/16/24 documented as of this encounter
--- OUTSIDE RECORDS SUMMARY | 2025-04-12 07:12 | XMS_ITS | Encounter Summary ---
Author Organization [facility] Address [address] [place] [address] Care Team Providers Care Baggage Agent Supervisor Name Role Phone Nilo Prado MD Unavailable Elia Min DO Primary Care Provider [phone] Tevin Villafana DO Primary Care Provider [phone] Natacha Schroeder DO Unavailable Lisha Worthington ZIPPER REPAIRER.CLINICAL NURSING COORDINATOR Unavailable Source Comments In the event this information is protected by the Federal Confidentiality of Alcohol and Drug AbusePatient Records regulations: The Federal rules restrict any use of the information to criminally investigate or prosecute any alcohol or drug abuse patient.[facility] Encounter Details Date Type Department Care Team (Late st Contact Info) Description 01/06/2023 Get Medical Advice Neurology [address] [place], [place] [phone] Margo Manzano MD [address] [place] [address] Iih Social History Tobacco Use Types Packs/Day Years [...] often do you attend chur ch or congregation services? Never 07/03/2022 Do you belong to any clubs o r organizations such as alevism groups, unions, fraternal or athletic groups, or [...] care, and heating? Not very hard 07/03/2022 [facility] - Occupational Stress Questionnaire Answer Date [...] place to sleep or slept in a group home (including now)? No 07/03/2022 Area Deprivation Index Answer Date David rded National Score (1-100), lower number is lower ri sk 73 09/29/2022 State Score (1-10), lower number is lower risk N ot on file 09/29/2022 Data from: https://www.neighborhoodatlas.medicine.[facility].edu/. Last address used for calculation [address] [facility] 09/29/2022 Comments Unknown Sex and Gender Information Value Date Recorded Sex Assigned at Female 02/06/2022 6:05 PM EDT Legal Sex Female 10:01 AM EST Gender Identity Female 01/13/2022 11:52 AM EDT Sexual Orientation Straight 02/06/2022 6: 05 PM EDT documented as of this encounter Miscellaneous Notes * Telephone Encounter - Consuelo Fregoso RN - 01/06/2023 12:57 PM EDT [employer] message forwarded to provider. documented in this encounter Plan of Treatment Upcoming Encounters Date Type Department Care Team (Latest Contact Info) Description 05/16/2025 9:00 AM EDT Office Visit [facility] [address] [place] [address] Molly Kramer, CEDRIC.CLINICAL NURSING COORDINATOR [address] [place] [address] LT BREAST PAIN WITH DISCOLORATION 05/16/2025 9:30 AM EDT Appointment Mammography [address] [address] LT BREAST PAIN WITH DISCOLORATION documented as of this encounter Visit Diagnoses Not on filedocumented in this encounter Care Teams Baggage Agent Supervisor Relationship Specialty Start Date End Date Elia Min DO [address] [place] [address] PCP - General Family Medicine 01/04/24 05/29/24 [place] [address] [place] [address] PCP - General Family Medicine 05/30/24 02/13/25 Nilo Prado MD [address] [place] [address] Referring Gastroenterology 08/17/23 [place] [address] [place] [address] Pressing Machine Operator Family Medicine 08/22/24 12/15/24 Lisha Worthington APRN.CLINICAL NURSING COORDINATOR [address] [place] [address] Pressing Machine Operator Family Medicine 12/16/24 documented as of this encounter
--- OUTSIDE RECORDS SUMMARY | 2025-04-12 07:12 | XMS_ITS | Patient Health Record ---
Author Organization [facility] es Address [address] [place] [address] Care Team Providers Care Salesforce Trainer Name Role Phone Ilda Lloyd Primary Care Provider [phone] Raghav Walton Unavailable [phone] Chyna Elkins Unavailable [phone] Karin Pierre Unavailable [phone] Salena Márquez Unavailable [phone] Cristobal Wong Unavailable [phone] Jennifer Hammond Unavailable [phone] Raoul Stone Unavailable [phone] Allergies Allergen (clinical drug ingredient) Drug/Non Drug Allergy documented on EMR Reaction Allergy Type Onset Date Status aripiprazole Abilify suicidal Drug Allergy Acti ve BuSpar high bp and irregular heart rate Drug Allergy Active Results Component Value Reference Range Notes Lab Miscellaneous-LC Reviewed date:08/21/2024 08:04:28 PM Interpretation: Performing Lab: Notes/Report: [facility] [address] [place] [address] Original Ordering Provider: IRENE MARADIAGA Lab Miscellaneous COMMENT Test Ordered: [id number] Hemoglobin A1c Hemoglobin A1c 5.6 % Reference Range: 4.8-5.6 Prediabetes: 5.7 - 6.4 Diabetes: >6.4 Glycemic control for adults with diabetes: <7.0 Performed at: [facility] [address] [place] [address] [id number] PhD Cordelia Madera Test Code [id number] Test Name a1C Performing Lab see note UNK - [facility] unless otherwise specified [address] [place] [address] EBV Antibody Profile Reviewed date:08/21/2024 08:04:28 PM Interpretation: Performing Lab: Notes/Report: [facility] [address] [place] [address] Original Ordering Provider: IRENE MARADIAGA SISI TADEO VIRUS CAPSID AB.IGM <36.0 0.0-35.9 unit/mL Negative <36.0 Equivocal 36.0 - 43.9 Positive >43.9 SISI TADEO VIRUS CAPSID AB.IGG 154.0 0.0-17.9 unit/mL Negative <18.0 Equivocal 18.0 - 21.9 Positive >21.9 SISI TADEO VIRUS NUCLEAR AB.IGG 299.0 0.0-17.9 unit/mL Negative <18.0 Equivocal 18.0 - 21.9 Positive >21.9 SERVICE COMMENT Comment EBV Interpretation Chart Bose: Antibody Present + Antibody Absent - Interpretation VCA-IgM VCA-IgG EBNA-IgG No previous infection/ - - - Susceptible Primary infection (new + + - or recent) Past Infection +or- + + See comment below* + - - *Results indicate infection with EBV at some time however cannot predict the timing of the infection since antibodies to EBNA usually develop after primary infection or, alternatively, approximately 5-10% of patients with EBV never develop antibodies to EBNA. Performed at: [facility] [address] [place] [address] [id number] PhD Cordelia Madera Performing Lab see note UNK - [facility] unless otherwise specified [address] [place] [address] EBV Early Ab Reviewed date:08/21/2024 08:04:28 PM Interpretation: Performing Lab: Notes/Report: [facility] [address] [place] [address] Original Ordering Provider: IRENE MARADIAGA SISI TADEO VIRUS EARLY DIFFUSE AB.IGG <9.0 0.0-8.9 unit/mL Negative < 9.0 Equivocal 9.0 - 10.9 Positive >10.9 Performed at: [facility] [address] [place], [place] [id number] Madera Performing Lab see note [facility] unless otherwise specified [address] [address] Ferritin Reviewed date:08/21/2024 08:04:13 PM Interpretation: Performing Lab: Notes/Report: [facility] [address] [place] [address] Original Ordering Provider: IRENE MARADIAGA FERRITIN 10 11-307 ng/mL Performing Lab see note [facility] unless otherwise specified [address] [address] Iron Reviewed date:08/21/2024 08:04:28 PM Interpretation: Performing Lab: Notes/Report: [facility] [address] [place] [address] Original Ordering Provider: IRENE MARADIAGA IRON 55 35-153 microgram/dL Performing Lab see note [facility] unless otherwise specified [address] [address] Iron Saturation Reviewed date:08/21/2024 08:04:28 PM Interpretation: Performing Lab: Notes/Report: [facility] [address] [place] [address] Original Ordering Provider: IRENE MARADIAGA IRON SATURATION 13 20-50 % IRON BINDING CAPACITY 414 250-400 microgram/dL Performing Lab see note [facility] unless otherwise specified [address] [address] Transferrin Reviewed date:08/21/2024 08:04:28 PM Interpretation: Performing Lab: Notes/Report: Transferrin order added by Discern Rule: gl_ftmc_add_iron_trans . [facility] [address] [place] [address] Original Ordering Provider: IRENE MARADIAGA Transferrin 296 200-370 mg/dL Performing Lab see note [facility] unless otherwise specified [address] [address] Rapid COVID-19 Reviewed date:05/19/2024 05:17:29 PM Interpretation:neg Performing Lab: Notes/Report: neg Results neg WOUND - Chronic Wound/Ulcer (HTRx) Reviewed date:06/18/2024 04:25:21 PM Interpretation: Performing Lab: Notes/Report: Real-Time polymerase chain reaction (TaqMan qPCR) was utilized for detection for all tested organisms and resistance genes. COVID-19 testing separately performed using [employer] COVID-19 Combo kit. Initiation of antimicrobial therapy prior to testing may affect results and can lead to the detection of non-living microorganisms. Detection of microbes must be correlated with current/recent antibiotic usage and patient signs and symptoms. Microbial sensitivity testing is not performed at this lab. Highway Inspector to CFU/mL equivalent thresholds were established based on studies using known CFU/mL urine specimens performed at [facility] in [place], [place]. Testing performed by [facility] ([address], [place] [address]; CLIA# [id number]; [employer] Leila Ness, PhD, [facility])). This test was developed, and its performance characteristics determined by [facility]. It has not been cleared or approved by the FDA. However, such approval/clearance is not required, as the laboratory is regulated and qualified under CLIA to perform high-complexity testing. This test is used for clinical purposes and should not be regarded as investigational or for research. *Approximate copies of target nucleic acid per &micro;L (Low: <2,500 copies/&micro;L, Moderate: 2,500-50,000 copies/&micro;L, High: >50,000 copies/&micro;L) National Infectious Disease Consensus Data Potentially effective oral antibiotics, based on presence of detected microbes, antimicrobial resistance genes, and national antimicrobial sensitivity data (see Summary Antibiogram). tet B, tet M 27.222 23.000 - 27.778 ppm tet B, tet M Detected 23.000 - 27.778 ppm Chantell albicans, glabrata, parapsilosis, tropicalis 0.000 19.961 - 24.689 ppm Chantell albicans, glabrata, parapsilosis, tropicalis Not Detected 19.961 - 24.689 ppm Aspergillus flavus, fumigatus, niger, terreus 0.000 23.000 - 30.981 ppm Aspergillus flavus, fumigatus, niger, terreus Not Detected 23.000 - 30.981 ppm Trichosporon mucoides, asahii 0.000 23.000 - 31 .352 ppm Trichosporon mucoides, asahii Not Detected 23.000 - 31 .352 ppm Trichophyton mentagrophytes/interdigitale, rubrum, soudanense, terrestre, tonsurans, verrucosum, violaceum; Microsporum audouinii, canis, gypseum 28.324 23.000 - 28.500 ppm Trichophyton mentagrophytes/interdigitale, rubrum, soudanense, terrestre, tonsurans, verrucosum, violaceum; Microsporum audouinii, canis, gypseum Detected 23.000 - 28.500 ppm Malassezia furfur, restricta , sympodialis, globosa 27.596 23.000 - 30.054 ppm Malassezia furfur, restricta , sympodialis, globosa Detected 23.000 - 30.054 ppm Fusarium spp (oxysporum, solani) 0.000 23.000 - 30.331 ppm Fusarium spp (oxysporum, solani) Not Detected 23.000 - 30.331 ppm Varicella zoster virus (VZV, Human Herpesvirus 3) 0.000 23.000 - 31.749 ppm Varicella zoster virus (VZV, Human Herpesvirus 3) Not Detected 23.000 - 31.749 ppm Streptococcus pyogenes (Grou p A strep) 0.000 19.961 - 24.689 ppm Streptococcus pyogenes (Grou p A strep) Not Detected 19.961 - 24.689 ppm Streptococcus pneumoniae 0.000 19.961 - 24.689 ppm Streptococcus pneumoniae Not Detected 19.961 - 24.689 ppm Streptococcus agalactiae (Group B Strep) 0.000 19.961 - 24.689 ppm Streptococcus agalactiae (Group B Strep) Not Detected 19.961 - 24.689 ppm Staphylococcus aureus 0.000 19.961 - 24.689 ppm Staphylococcus aureus Not Detected 19.961 - 24.689 ppm Staphylococcus spp (coagulas e negative: epidermidis, haemolyticus, lugdunensis, saprophyticus) 27.607 19.961 - 24.689 ppm Staphylococcus spp (coagulas e negative: epidermidis, haemolyticus, lugdunensis, saprophyticus) Detected 19.961 - 24.689 ppm Pseudomonas aeruginosa 0.000 19.961 - 24.689 pp m Pseudomonas aeruginosa Not Detected 19.961 - 24.689 pp m Proteus mirabilis, vulgaris 0.000 19.961 - 24.6 89 ppm Proteus mirabilis, vulgaris Not Detected 19.961 - 24.6 89 ppm Klebsiella pneumoniae, oxytoca 0.000 19.961 - 24.689 ppm Klebsiella pneumoniae, oxytoca Not Detected 19.961 - 24.689 ppm Haemophilus influenzae 0.000 19.961 - 24.689 pp m Haemophilus influenzae Not Detected 19.961 - 24.689 pp m Escherichia coli 0.000 19.961 - 24.689 ppm Escherichia coli Not Detected 19.961 - 24.689 ppm Clostridium perfringens, novyi, septicum 0.000 19.961 - 24.689 ppm Clostridium perfringens, novyi, septicum Not Detected 19.961 - 24.689 ppm Cutibacterium (Propionbacterium) acnes 0.000 19.961 - 24.689 ppm Cutibacterium (Propionbacterium) acnes Not Detected 19.961 - 24.689 ppm Bacteroides fragilis, vulgatus 0.000 19.961 - 24.689 ppm Bacteroides fragilis, vulgatus Not Detected 19.961 - 24.689 ppm Corynebacterium jeikeium, striatum, tuberculostearicum 26.145 19.961 - 24.689 ppm Corynebacterium jeikeium, striatum, tuberculostearicum Detected 19.961 - 24.689 ppm Vibrio cholerae, parahaemolyticus, vulnificus 0.000 23.000 - 31.296 ppm Vibrio cholerae, parahaemolyticus, vulnificus Not Detected 23.000 - 31.296 ppm Salmonella enterica 0.000 19.961 - 24.689 ppm Salmonella enterica Not Detected 19.961 - 24.689 ppm Mycoplasma genitalium, hominis 0.000 19.961 - 24.689 ppm Mycoplasma genitalium, hominis Not Detected 19.961 - 24.689 ppm Enterococcus faecalis, faecium 0.000 19.961 - 24.689 ppm Enterococcus faecalis, faecium Not Detected 19.961 - 24.689 ppm Enterobacter aerogenes, cloacae 0.000 19.961 - 24.689 ppm Enterobacter aerogenes, cloacae Not Detected 19.961 - 24.689 ppm Serratia marcescens 0.000 19.961 - 24.689 ppm Serratia marcescens Not Detected 19.961 - 24.689 ppm Citrobacter freundii 0.000 19.961 - 24.689 ppm Citrobacter freundii Not Detected 19.961 - 24.689 ppm Epidermophyton floccosum 0.000 23.000 - 31.114 ppm Epidermophyton floccosum Not Detected 23.000 - 31.114 ppm Acinetobacter baumannii 0.000 19.961 - 24.689 p pm Acinetobacter baumannii Not Detected 19.961 - 24.689 p pm Herpes simplex virus 1 0.000 23.000 - 32.355 pp m Herpes simplex virus 1 Not Detected 23.000 - 32.355 pp m Herpes simplex virus 2 0.000 23.000 - 31.433 pp m Herpes simplex virus 2 Not Detected 23.000 - 31.433 pp m Peptostreptococcus anaerobius, Peptoniphilus asaccharolyticus, Finegoldia magna, Anaerococcus prevotii 25.451 19.961 - 24.689 ppm Peptostreptococcus anaerobius, Peptoniphilus asaccharolyticus, Finegoldia magna, Anaerococcus prevotii Detected 19.961 - 24.689 ppm Reason For Referral No Information Medications Medication SIG (Take, Route, Frequency, Duration) Notes Start Date End Date Status lamoTRIgine 100 MG 1 tablet Orally Once a day; Duration: 90 days Active Albuterol Sulfate HFA 108 (90 Base) MCG/ACT 2 puff as needed Inhalation every 4 hrs PRN 05/19/2024 Active Multi Vitamin - 1 tablet Orally Once a day Active DULoxetine HCl 60 MG TAKE 1 CAPSULE BY [facility] TWICE A DAY FOR 30 DAYS; Duration: 30 days Active traZODone HCl 100 MG TAKE 1 TABLET BY [facility] EVERYDAY AT BEDTIME; Duration: 30 days Active Ferrous Sulfate 325 (65 Fe) MG 1 tablet Orally once a day; Duration: 30 days 08/28/2024 Active Gabapentin 300 MG 1 capsule Orally thr ee times a day Active OLANZapine 5 MG 1 tablet Orally Once a day; Duration: 30 days 10/25/2024 Active Social History Tobacco Use: Social History Observation Description Date Details (start date - stop date) Current Smoker NA - NA Depression Screening (PHQ-9): Question Answer Notes Little interest or pleasure in doing things Near ly every day Feeling down, depressed, or hopeless Nearly ever y day Trouble falling or staying asleep, or sleeping t oo much Several days Feeling tired or having little energy More than half the days Poor appetite or overeating Several days Feeling bad about yourself-o r that you are a failure or have let yourself or your family down Not at all Trouble concentrating on thi ngs, such as reading the newspaper or watching television Not at all Moving or speaking so slowly that other people could have noticed. Or the opposite being so fidgety or restless that you have been moving around a lot more than usual Not at all Thoughts that you would be b luiza off , or of hurting yourself in some way Not at all Total Score 10 Intepretation Moderate Depression AUDIT-C (Standard) Question Answer Notes Did you have a drink contain ing alcohol in the past year? Yes How often did you have six o r more drinks on one occasion in the past year? 4 or more times a week (4 points) How many drinks did you have on a typical day when you were drinking in the past year? 10 or more drinks (4 points) How often did you have a dri nk containing alcohol in the past year? Daily or almost daily (4 points) Points 12 Interpretation Positive Tobacco Control (Standard) Question Answer Notes Tobacco use: Current smoker How often do you smoke cigarettes? Every day How many cigarettes a day do you smoke? 11-20 How soon after you wake up do you smoke your fir st cigarette? 31-60 minutes Are you interested in quitting? Not ready to frdeis t Section Notes: 60 days sober from alcohol a s of 03/16/24 Pt is an alcoholic Pt is an alcoholic 60 days sober from alcohol a s of 03/16/24 60 days sober from alcohol a s of 03/16/24 60 days sober from alcohol a s of 03/16/24 60 days sober from alcohol a s of 03/16/24 60 days sober from alcohol a s of 03/16/24 Pt is an alcoholic Pt is an alcoholic Pt is an alcoholic Pt is an alcoholic Problems Problem Type SNOMED Code ICD Code Onset Dates Problem Status W/U Status Risk Notes Problem Tobacco user (300139904) Nicotine dependence, unspecified, uncomplicated (F17.200) Active confirmed Problem Bipolar 1 disorder (798966463) Bipolar 1 disorder (F31.9) Active confirmed Problem Alcohol abuse (46368313) Alcohol abuse (F10.10) Active confirmed Problem Chronic fatigue syndrome (58268590) Chronic fatigue (R53.82) Active confirmed Problem Iron deficiency anemia (99866731) Iron deficiency anemia, unspecified iron deficiency anemia type (D50.9) Active confirmed Problem Body mass index 30.00 to 34.99 (470669277717709) BMI 31.0-31.9,adult (Z68.31) Active confirmed Problem History of gastric bypass (498204915) History of gastric bypass (Z98.84) Active confirmed Problem Acquired spondylolisthesis (651871436) Spondylolisthesis at L4-L5 level (M43.16) Active confirmed Vital Signs Heart Rate 73 /min 10/25/2024 Temperature 98.0 degrees Fahrenheit 10/25/2024 Respiratory Rate 20 /min 09/05/2024 Blood pressure diastolic 88 mm Hg 10/25/2024 Oximetry 97 % 10/25/2024 Height 67 in 10/25/2024 Blood pressure systolic 136 mm Hg 10/25/2024 Weight 199.0 lbs 10/25/2024 BMI 31.16 kg/m2 10/25/2024 Encounters Encounter Location Date Provider Diagnosis [facility] [address] [place] [address] 05/12/2024 Raoul Stone [facility] [address] [place] [address] 06/13/[address] [facility] [address] [place] [address] 06/18/[address] [facility] [address] [place] [address] 07/07/2024 Ilda Lloyd BMI 31.0-31.9,adult Z68.31 [facility] [address] [place] [address] 07/22/[address] [facility] [address] [place] [address] 08/21/[address] [facility] [address] [place] [address] 08/22/2024 Raghav Walton Bipolar 1 disorder F31.9 [facility] [address] [place] [address] 08/22/2024 Ilda Gabino [address] [facility] [place] [address] 05/19/2024 Ilda Lloyd Nicotine dependence, unspecified, uncomplicated F17.200 ; Bronchitis J40 and URI with cough and congestion J06.[address] [address] 06/16/2024 Ilda Lloyd Nicotine dependence, unspecified, uncomplicated F17.200 and Recurrent infection of skin L08.[address] [address] 08/17/2024 Ilda Lloyd Chronic fatigue R53.82 ; Acute bilateral otitis media H66.93 ; Nicotine dependence, unspecified, uncomplicated F17.200 and Iron deficiency anemia, unspecified iron deficiency anemia type D50.9 [facility] [address] [place] [address] 09/05/2024 Cristobal Wong Chronic fatigue R53.82 ; Muscle ache M79.10 ; Nausea R11.0 and Generalized abdominal pain R10.[address] [address] 04/27/2024 Raoul Stone Bipolar 1 disorder F31.[address] [address] 05/17/2024 Raoul Stone Bipolar 1 disorder F31.9 [facility] [address] [place] [address] 06/15/2024 Raoul Stone Bipolar 1 disorder F31.9 [facility] [address] [place] [address] 07/06/2024 Raoul Stone Bipolar 1 disorder F31.9 [facility] [address] [place] [address] 07/13/2024 Jennifer zzzOllom Bipolar 1 disorder F31.9 and Alcohol abuse F10.10 [facility] [address] [place] [address] 06/01/2024 Raoul Stone Bipolar 1 disorder F31.9 [facility] [address] [place] [address] 08/24/2024 Ilda Lloyd Iron deficiency anemia, unspecified iron deficiency anemia type D50.9 ; Acute abdominal pain R10.9 ; Elevated lipase R74.8 and History of gastric bypass Z98.84 [facility] [address] [place] [address] 10/21/2024 Jennifer zzzOllom Bipolar 1 disorder F31.9 [facility] [address] [place] [address] 05/12/2024 Raoul Stone Bipolar 1 disorder F31.9 [facility] [address] [place] [address] 10/25/2024 Raghav Walton Bipolar 1 disorder F31.9 [facility] [address] [place] [address] 06/22/2024 Chyna Elkins Bipolar 1 disorder F31.9 [facility] [address] [facility] [address] 05/04/2024 Chyna Elkins Bipolar 1 disorder F31.9 [facility] [address] [place] [address] 05/26/2024 Chyna Elkins Bipolar 1 disorder F31.9 [facility] [address] [facility] [address] 04/13/2024 Chyna Elkins Bipolar 1 disorder F31.9 Assessments Encounter Date Diagnosis (ICD Code) Assessment Notes Treatment Notes Treatment Clinical Notes Section Notes 04/13/2024 Bipolar 1 disorder (ICD-10 - F31.9) Recommended treatment is: Recommended treatment for Bipolar disorder includes FDA approved and OFF label medications: second generation antipsychotics and mood stabilizers. Discussed life threatening side effect of Lamotrigine. Pt is to monitor for new skin rashes or sensation of a sunburn or itchiness or redness, mouth sores or sores in mucus membranes, and call provider immediately and or go to ER, and stop the medication. Second generation antipsychotic medications can cause headache, drowsiness, agitation, dizziness, nausea, or extrapyramidal symptoms such as tremors, muscle spasms, slowness of movement or jerking of muscles. Stable The patient verbalizes understanding with all questions answered thoroughly and is in agreement with treatment plan. She will continue at 3 tablets of Lamictal. She will continue Klonopin through PCP. Discussed trying to get her kids on a better sleep schedule so she might be able to sleep better herself. She agreed to try it. Call for problems . GOALS: . Maintain medication regimen _Improve mood stability _Improve anxiety control _Improve social and interpersonal functioning Patient/Guardian will call sooner if symptoms worsen. Patient understands to go to ER if needed if symptoms become severe. Crisis Intervention plan was discussed and agreed upon. Patient/Guardian will call 911 in case of emergency. Emergency contact information was provided to the patient/guardian. follow up 3 weeks 04/27/2024 Bipolar 1 disorder (ICD-10 - F31.9) 05/04/2024 Bipolar 1 disorder (ICD-10 - F31.9) Recommended treatment is: Recommended treatment for Bipolar disorder includes FDA approved and OFF label medications: second generation antipsychotics and mood stabilizers. Discussed life threatening side effect of Lamotrigine. Pt is to monitor for new skin rashes or sensation of a sunburn or itchiness or redness, mouth sores or sores in mucus membranes, and call provider immediately and or go to ER, and stop the medication. Second generation antipsychotic medications can cause headache, drowsiness, agitation, dizziness, nausea, or extrapyramidal symptoms such as tremors, muscle spasms, slowness of movement or jerking of muscles. Stable The patient verbalizes understanding with all questions answered thoroughly and is in agreement with treatment plan. She will continue at 3 tablets of Lamictal. She will continue Klonopin through PCP. She will try Vraylar to see if symptoms improve. Call for problems . GOALS: . Maintain medication regimen _Improve mood stability _Improve anxiety control _Improve social and interpersonal functioning Patient/Guardian will call sooner if symptoms worsen. Patient understands to go to ER if needed if symptoms become severe. Crisis Intervention plan was discussed and agreed upon. Patient/Guardian will call 911 in case of emergency. Emergency contact information was provided to the patient/guardian. follow up 3 weeks 05/12/2024 Bipolar 1 disorder (ICD-10 - F31.9) 05/17/2024 Bipolar 1 disorder (ICD-10 - F31.9) 05/19/2024 Nicotine dependence, unspecified, uncomplicated (ICD-10 - F17.200) 05/19/2024 Bronchitis (ICD-10 - J40) Take medications as directed. Rest and increase fluid intake. Take meds with food to prevent stomach upset. Use inhaler as needed for coughing spells and SOB. It is better to use inhaler a few times a day over the next 2-3 days. Follow up with our office if symptoms do not improve with treatment plan, although it may take a few weeks for the cough to go away 05/26/2024 Bipolar 1 disorder (ICD-10 - F31.9) Recommended treatment is: Recommended treatment for Bipolar disorder includes FDA approved and OFF label medications: second generation antipsychotics and mood stabilizers. Discussed life threatening side effect of Lamotrigine. Pt is to monitor for new skin rashes or sensation of a sunburn or itchiness or redness, mouth sores or sores in mucus membranes, and call provider immediately and or go to ER, and stop the medication. Second generation antipsychotic medications can cause headache, drowsiness, agitation, dizziness, nausea, or extrapyramidal symptoms such as tremors, muscle spasms, slowness of movement or jerking of muscles. Stable The patient verbalizes understanding with all questions answered thoroughly and is in agreement with treatment plan. She will continue at 3 tablets of Lamictal. She will continue Klonopin through PCP. She will increase Trazodone to help with sleep. Call for problems . GOALS: . Maintain medication regimen _Improve mood stability _Improve anxiety control _Improve social and interpersonal functioning Patient/Guardian will call sooner if symptoms worsen. Patient understands to go to ER if needed if symptoms become severe. Crisis Intervention plan was discussed and agreed upon. Patient/Guardian will call 911 in case of emergency. Emergency contact information was provided to the patient/guardian. follow up 4 weeks 06/22/2024 Bipolar 1 disorder (ICD-10 - F31.9) Recommended treatment is: Recommended treatment for Bipolar disorder includes FDA approved and OFF label medications: second generation antipsychotics and mood stabilizers. Discussed life threatening side effect of Lamotrigine. Pt is to monitor for new skin rashes or sensation of a sunburn or itchiness or redness, mouth sores or sores in mucus membranes, and call provider immediately and or go to ER, and stop the medication. Second generation antipsychotic medications can cause headache, drowsiness, agitation, dizziness, nausea, or extrapyramidal symptoms such as tremors, muscle spasms, slowness of movement or jerking of muscles. Stable The patient verbalizes understanding with all questions answered thoroughly and is in agreement with treatment plan. She will continue medication. She will continue Klonopin through PCP. She will call after detox to schedule an appointment. Call for problems . GOALS: . Maintain medication regimen _Improve mood stability _Improve anxiety control _Improve social and interpersonal functioning Patient/Guardian will call sooner if symptoms worsen. Patient understands to go to ER if needed if symptoms become severe. Crisis Intervention plan was discussed and agreed upon. Patient/Guardian will call 911 in case of emergency. Emergency contact information was provided to the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
--- OUTSIDE RECORDS SUMMARY | 2025-04-12 07:12 | XMS_ITS | Clinical Summary ---
Author Organization [facility] Healthcare Address [address] [place] [address] Care Team Providers Care Ceo And Founder Name Role Phone Yolande Page INSOLE PRESSER Unavailable [phone] Pop Larsen DO Unavailable [phone] Allergies Active Allergy Reactions Criticality Noted Date Comments Aripiprazole 01/31/2024 Buspirone Palpitations Low 09/21/2024 Coconut (Cocos Nucifera) 01/31/2024 Medications ziprasidone (Geodon) 20 MG capsule Take 20 mg by mouth in the morning and 20 mg in the evening. Take with meals. Active ondansetron (Zofran) 4 MG tablet Take by mouth Active methylPREDNISolo ne (Medrol) 4 MG tablet Take 4 mg by mouth Daily Therapy Pack as directed Active DULoxetine (Cymbalta) [address] capsule Take 90 mg by mouth at bedtime Active pantoprazole (Protonix) 40 MG EC tablet Take 40 mg by mouth Daily Active topiramate (Topamax) 25 MG tablet Take 25 mg by mouth in the morning and 25 mg before bedtime. Active lamoTRIgine (LaMICtal) 25 MG tablet Take 50 mg by mouth in the morning and 50 mg before bedtime. Active traZODone (Desyrel) 100 MG tablet Take 100 mg by mouth at bedtime Active Multiple Vitamins-Mineral s (multivitamin with minerals) tablet Take 1 tablet by mouth Daily Active ferrous sulfate 325 (65 Fe) MG tablet Take 325 mg by mouth in the morning. Take with meals. Active cyclobenzaprine (Flexeril) 10 MG tablet TAKE 1 TABLET BY MOUTH UP TO 3 TIMES DAILY NEEDED Active Ferrous Sulfate (IRON PO) Take by mouth Active gabapentin (Neurontin) 300 MG capsule Take 1 capsule by mouth in the morning and 1 capsule in the evening and 1 capsule before bedtime. Active NIFEdipine CC (Adalat CC) 30 MG 24 hr tablet Take 30 mg by mouth Daily Active Vraylar 1.5 MG capsule Take 1 capsule by mouth Daily Active amoxicillin-clav ulanate (Augmentin) 875-125 MG tabletIndication s:Pharyngitis, unspecified etiology,Acute pharyngitis, unspecified etiology Take 1 tablet (875 mg) by mouth in the morning and 1 tablet (875 mg) before bedtime. Do all this for 10 days. 20 tablet 04/19/20 Active Brexpiprazole 4 MG tablet Take 4 mg by mouth in the morning. 04/09/20 Discontinu ed(Therapy completed) acetaZOLAMIDE (Diamox) 250 MG tablet Take 250 mg by mouth in the morning and 250 mg before bedtime. 04/09/20 Discontinu ed(Therapy completed) Active Problems Problem Noted Date Diagnosed Date Alcohol abuse 12/22/2024 Difficulty walking 12/22/2024 Headache after spinal puncture 12/22/2024 Internal derangement of left knee 12/22/2024 Iron deficiency anemia 12/22/2024 Overview (12/22/2024): [facility] Records page 5. added per OP CDI policy. Muscle weakness-general 12/22/2024 Sinus tarsi syndrome of right ankle 12/22/2024 Tarsal tunnel syndrome 12/22/2024 Current smoker 08/08/2024 Overview (12/22/2024): Added secondary to documentation in Social History. Family history of ischemic heart disease 024 BMI 29.0-29.9,adult 08/08/2024 Palpitations 08/08/2024 Shortness of breath 08/08/2024 Family history of cancer 03/08/2024 Family history of pancreatic cancer 03/08/2024 History of hysterectomy 03/08/2024 Left breast mass 03/08/2024 Weakness 01/31/2024 Numbness 01/31/2024 Ulnar neuropathy 01/31/2024 Other chronic pain 01/31/2024 Headache, unspecified headache type 01/31/2024 Overview (01/31/2024): Patient has significant headaches which started a couple of weeks ago and prompted this evaluation. She has recently resumed topiramate. I'm concerned that this may interfere with the quality of the lumbar puncture diagnostically. As such, I recommend she stop this until after the procedure. Papilledema 01/31/2024 Overview (01/31/2024): Clinical exam finding mandating lumbar puncture as above. Also need to have ophthalmology evaluation. Visual disturbance 01/31/2024 Overview (01/31/2024): See above. Tension type headache 01/31/2024 Overview (01/31/2024): Patient has had an increase in overall headaches recently. She has stopped alcohol abuse 90 days ago and recently had oxcarbazepine, gabapentin, Cyclobenzaprine and topiramate stopped as well. I suspect her headaches are related to this and she is also on vivitrol PLAN - Suggest continued abstinence from alcohol and street drugs. . consider trigger points IIH (idiopathic intracranial hypertension) 01/30 Overview (01/31/2024): The patient was having peripheral visual disturbances, concern for papilledema with headache which were concerning for IIH. CT head showed a partially empty sella, though MRI brain and MRV head were unremarkable. LP was done which showed borderline OP of 23cm CSF. Previous treatment with topiramate, gabapentin and oxcarbazepine were stopped. Patient has also stopped acetazolimide on her own. Pt has no headache symptoms and no visual synptoms at this time. Patient also had recent follow-up with ophthalmology states that her vision and pressures are normal without papilledema. PLAN: monitor clinically History of substance abuse 01/31/2024 Overview (01/31/2024): Patient did have a recent relapse with alcohol over the holidays but is 17 days sober again today and back on vivitrol. She does have a history of significant psychiatric disease. I strongly suggested she follow closely with psychiatry in order to further help control the symptoms long-term. Paresthesias 01/31/2024 Overview (01/31/2024): It is my impression that the patient has paresthesias in the bilateral lower extremities. The patient notices some numbness and tingling that seems to shoot down her legs and I'm concerned this may represent a radicular process. The patient was also recently been utilizing topiramate and Acetasol might and certainly medication side effect is a consideration. . Plan: EMG of the bilateral lower extremities Paresthesia 01/31/2024 Chronic alcoholism in remission 01/04/2024 Cyst of pancreas 08/13/2023 Bipolar affective disorder in remission 06/10/20 23 Low iron 05/27/2023 H/O foot surgery 11/20/2022 Primary hypertension 11/20/2022 Intestinal malabsorption 11/19/2022 History of gastric bypass 01/07/2021 Vitamin D deficiency 06/27/2020 Bilateral foot pain 05/23/2020 Borderline personality disorder 05/23/2020 Flat feet 05/23/2020 Gastroesophageal reflux disease without esophagi tis 05/23/2020 History of nicotine use 05/23/2020 Anxiety and depression 05/16/2020 Arthritis 05/16/2020 Poor growth, affecting management of mother, antepartum condition or complication ([facility]) 07/03/2008 Acute pharyngitis 12/01/2002 Streptococcal sore throat 12/01/2002 Abdominal pain 06/13/2002 Acute suppurative otitis med ia without spontaneous rupture of ear drum 06/13/2002 Educational circumstance 06/13/2002 Lumbago 06/13/2002 Sprain of ankle 12/06/2001 Encounters Date Type Department Care Team Description 04/11/2025 Travel 04/09/2025 10:45 AM EDT Office Visit [facility] [address] [place] [address] Shazia Elise, INSOLE PRESSER Acute pharyngitis, unspecified etiology (Primary Dx); Pharyngitis, unspecified etiology 04/09/2025 Travel from Last 3 Months Family History Medical History Relation Name Comments ALS Father Cancer Mother Diabetes Mother Hyperlipidemia Mother Hypertension Mother Stroke Mother Relation Name Status Comments Father Mother Sibling Alive Social History Tobacco Use Types Packs/Day Years Used Date Smoking Tobacco: Every Day Cigarettes Tobacco Cessation:Ready to Q uit: Not Asked; Counseling Given: Not Answered Alcohol Use Standard Drinks/Week Comments Yes 4 [...] (201 lb) 04/09/2025 10:45 AM EDT Height 167.6 cm (5' 6 ) 08/01/2021 12:00 PM EST Body Mass Index 32.44 08/01/2021 12:00 PM EST Plan of Treatment Upcoming Encounters Date Type Department Care Team (Late st Contact Info) Description 04/13/2025 10:00 AM EDT Consult [facility] [address] [address] Shaji Francis DO [address] [address] Health Maintenance Due Date Last Done Comments Pap Smear 2009 Cervical Cancer Screening 2018 HPV/Cotest 2018 Influenza Vaccine (#1) 2025 07/23/2020, 2019 Procedures Procedure Name Priority Date/Time Associated Diagnosis Comments STREP DNA PROBE Routine 04/09/2025 11:03 AM EDT Pharyngitis, unspecified etiology from Last 3 Months Results * STREP DNA PROBE (04/09/2025 11:03 AM EDT) RESULT neg Negative Throat 04/09/2025 11:0 3 AM EDT Shazia Elise NP POINT OF CARE TEST ENTER/JEREMIAH T ORDERABLES Final Result from Last 3 Months Insurance MEDICAID [place] [employer] MEDICARE ADVANTAGE Care Teams Ceo And Founder Relationship Specialty Start Date End Date Yolande Page NP [facility] [address] [place] [address] 09/21/24 Pop Larsen [facility] [place] [address] [place] [address] Referring Physician Neurology 09/27/24
--- OUTSIDE RECORDS SUMMARY | 2025-04-12 07:12 | XMS_ITS | Encounter Summary ---
Author Organization [facility] Address [address], [address] [place] [address] Care Team Providers Care Finance Administrator Name Role Phone Jennie Durand DO Primary Care Provider [phone] Reason for Referral * Imaging (Routine) - Closed Specialty Diagnoses / Procedures Referred By Contac t Referred To Contact Radiology Diagnoses Gastroesophageal reflux disease with esophagitis, unspecified whether hemorrhage Procedures FL UGI W KUB Johnny Vickers DO Phone: tel: fax: Referral ID Status Reason Start Date Expiration Date Visits Re quested Visits Authorized [id number] Closed 10/24/2020 10/24/2021 1 1 Encounter Details Date Type Department Care Team (Latest Contact Info) Description 10/24/2020 Transcribe Orders [facility] [address] [place] [address] Johnny Vickers DO [address] [place] [address] Gastroesophageal reflux disease with esophagitis, unspecified whether hemorrhage (Primary Dx) Social History Tobacco Use Types Packs/Day Years Used Date Smoking Tobacco: Former Cigarettes Q uit: 03/14/2020 Smokeless Tobacco: Never Alcohol Use Standard Drinks/Week Comments Yes 0 (1 standard drink = 0.6 oz pur e alcohol) rare AUDIT-C Answer Date Recorded Q1: How often do you have a drink containing alc ohol? Never 09/28/2020 Average Number of Drinks Not on file 021 Frequency of Binge Drinking Not on file 09/14 Comments Unknown Sex and Gender Information Value Date Recorded Sex Assigned at Female 11/29/2024 9:44 AM EDT Legal Sex Female 11:40 AM EDT Gender Identity Not on file Sexual Orientation Not on file COVID-19 Exposure Response Date Recorded In the last month, have you been in contact with someone who was confirmed or suspected to have Coronavirus / COVID-19? No / Unsure 09/28/2020 7:07 AM EST documented as of this encounter Plan of Treatment Scheduled Orders Name Type Priority Associated Diagnoses Orde r Schedule FL UGI W KUB Imaging Routine Gastroesophageal reflux disease with esophagitis, unspecified whether hemorrhage Expected: 10/24/2020, Expires: 10/24/2021 documented as of this encounter Visit Diagnoses Diagnosis Gastroesophageal reflux disease with esophagitis, unspecified whether hemorrhage- Primary documented in this encounter Additional Health Concerns Infection Onset Date Last Indicated Resolved Time COVID-19 (Rule Out) 10/26/2020 10/26/2020 10/28/19 21 6:12 AM EST COVID-19 (Rule Out) 01/03/2021 01/03/2021 01/05/20 21 10:07 AM EDT documented as of this encounter Care Teams Finance Administrator Relationship Specialty Start Date End Date Jennie Durand DO [address] [place] [phone] PCP - General Family Medicine 11/19/22 documented as of this encounter
--- OUTSIDE RECORDS SUMMARY | 2025-04-12 07:12 | XMS_ITS | Encounter Summary ---
Author Organization [facility] Address [address] [place] [address] Phone Care Team Providers Care Director Of Field Service Name Role Phone Generic Provider, No Assigned Pcp MD Primary Car e Provider Unavailable Encounter Details Date Type Department Care Team (Late st Contact Info) Description 12/31/2023 Scanned Document [facility] [address] [place] [phone] Scanning, Generic Provider Social History Tobacco Use [...] filedocumented in this encounter Care Teams Director Of Field Service Relationship Specialty Start Date End Date Generic Provider, [place] [address] PCP - General Grounds Person 11/03/24 documented as of this encounter
--- OUTSIDE RECORDS SUMMARY | 2025-04-12 07:12 | XMS_ITS | Encounter Summary ---
Author Organization [facility] Address [address] [place] [address] Care Team Providers Care Center Aisle Cashier Name Role Phone Yolande Page HEAD SULFIDE OPERATOR Unavailable [phone] Pop Larsen DO Unavailable [phone] Encounter Details Date Type Department Care Team (Latest Contact Info) Description 04/11/2025 Travel Social History Tobacco Use Types Packs/Day [...] AM EDT Consult [facility] [address] [phone] Shaji Francis DO [address] [facility] [address] [place], [place] [id number] documented as of this encounter Visit Diagnoses Not on filedocumented in this encounter Care Teams Center Aisle Cashier Relationship Specialty Start Date End Date Yolande Page NP [address] [address] 09/21/24 Pop Larsen DO [place] [phone] Referring Physician Neurology 09/27/24 documented as of this encounter
--- OUTSIDE RECORDS SUMMARY | 2025-04-12 07:12 | XMS_ITS | Encounter Summary ---
Author Organization [facility] Address [address] [place] [address] Phone Care Team Providers Care College Administrator Name Role Phone Generic Provider, No Assigned Pcp MD Primary Car e Provider Unavailable Encounter Details Date Type Department Care Team (Late st Contact Info) Description 09/15/2024 Scanned Document [facility] [address] [place] [phone] Scanning, Generic Provider Social History Tobacco Use [...] not to disclose 2023 9:48 AM EST COVID-19 Exposure Response Date Recorded In the last 10 days, have yo u been in contact with someone who was confirmed or suspected to have Coronavirus/COVID-19? No / Unsure 09/13/2024 9:20 AM EST documented as of this encounter Plan of Treatment Not on file documented as of this encounter Procedures Procedure Name Priority Date/Time Associated Diagnosis Comments OUTSIDE IMAGING SCAN 09/15/2024 documented in this encounter Results * OUTSIDE IMAGING SCAN (09/15/2024) Anatomical Region Laterality Modality Other Narrative 09/15/2024 Ordered by an unspecified provider. us Generic Provider Scanning OUTSIDE SCAN Final Result documented in this encounter Visit Diagnoses Not on filedocumented in this encounter Care Teams College Administrator Relationship Specialty Start Date End Date Generic Provider, [place] [address] PCP - General Snaker Driving Horses 11/03/24 documented as of this encounter
--- OUTSIDE RECORDS SUMMARY | 2025-04-12 07:12 | XMS_ITS | Encounter Summary ---
Author Organization [facility] Address [address] [place] [address] Care Team Providers Care Quality Assurance Nurse Name Role Phone Nilo Prado MD Unavailable Elia Min DO Primary Care Provider [phone] Tevin Villafana DO Primary Care Provider [phone] Natacha Schroeder DO Unavailable Lisha Worthington CASE MANAGEMENT COORDINATOR.RIGGER HELPER Unavailable Source Comments In the event this information is protected by the Federal Confidentiality of Alcohol and Drug AbusePatient Records regulations: The Federal rules restrict any use of the information to criminally investigate or prosecute any alcohol or drug abuse patient.[facility] Encounter Details Date Type Department Care Team (Late st Contact Info) Description 06/30/2022 Get Medical Advice Plastic Surgery [address] [place], [place] [id number] [place] [address] [place] [address] breast reduction Social History Tobacco Use Types Packs/Day Years [...] often do you attend chur ch or episcopalian services? Never 07/03/2022 Do you belong to any clubs o r organizations such as mandaeism groups, unions, fraternal or athletic groups, or [...] care, and heating? Not very hard 07/03/2022 [facility] - Occupational Stress Questionnaire Answer Date [...] place to sleep or slept in a skilled nursing (including now)? No 07/03/2022 Area Deprivation Index Answer Date David rded National Score (1-100), lower number is lower ri sk 73 02/12/2022 State Score (1-10), lower number is lower risk N ot on file 02/12/2022 Data from: https://www.neighborhoodatlas.medicine.[facility].edu/. Last address used for calculation [address] 02/12/2022 Comments Unknown Sex and Gender Information Value Date Recorded Sex Assigned at Female 02/06/2022 6:05 PM EDT Legal Sex Female 10:01 AM EST Gender Identity Female 01/13/2022 11:52 AM EDT Sexual Orientation Straight 02/06/2022 6: 05 PM EDT documented as of this encounter Functional Status * Audit-C Score Answer Date of Assessment Author 11 07/03/2022 2:07 PM EDT UserHeber * Q1: How often do you have a drink containing alcohol? Answer Date of Assessment Author 4 or more times a week 07/03/2022 2:07 PM EDT erCynthia * Q2: How many drinks containing alcohol do you have on a typical day when you are drinking? Answer Date of Assessment Author 7 to 9 07/03/2022 2:07 PM EDT UserHeber * Q3: How often do you have six or more drinks on one occasion? Answer Date of Assessment Author Daily or almost daily 07/03/2022 2:07 PM EDT Use r, Mychart documented as of this encounter Plan of Treatment Upcoming Encounters Date Type Department Care Team (Latest Contact Info) Description 05/16/2025 9:00 AM EDT Office Visit Breast Center [address] [address] Molly Kramer APRN.RIGGER HELPER [address] [place] [address] LT BREAST PAIN WITH DISCOLORATION 05/16/2025 9:30 AM EDT Appointment Mammography [address] [address] LT BREAST PAIN WITH DISCOLORATION documented as of this encounter Visit Diagnoses Not on filedocumented in this encounter Care Teams Quality Assurance Nurse Relationship Specialty Start Date End Date Elia Min DO [address] [address] PCP - General Family Medicine 01/04/24 05/29/24 [place] [address] [place] [address] PCP - General Family Medicine 05/30/24 02/13/25 Nilo Prado MD [address] [address] Referring Gastroenterology 08/17/23 [place] [address] [place] [address] Animal Nutrition Teacher Family Medicine 08/22/24 12/15/24 Lisha Worthington APRN.RIGGER HELPER [address] [place] [address] Animal Nutrition Teacher Family Medicine 12/16/24 documented as of this encounter
--- OUTSIDE RECORDS SUMMARY | 2025-04-12 07:12 | XMS_ITS | Encounter Summary ---
Author Organization [facility] tem Address [id number] [address] [place] [address] Care Team Providers Care Business Intelligence Director Name Role Phone [facility] Primary Care Pr ovider Reason for Visit * Reason Onset Date Comments GENETICS 02/07/2022 CLERICAL Encounter Details Date Type Department Care Team (Late st Contact Info) Description 02/07/2022 Telephone [facility] - Medical Oncology [address] [place] [id number] Edith Louise, [facility]IN [facility] [address] [facility] [address] [place] [address] GENETICS (CLERICAL) Social History Tobacco Use Types Packs/Day Years [...] on file documented as of this encounter Miscellaneous Notes * Telephone Encounter - Koki Duque - 02/07/2022 10:45 AM EDT 5/27/22 PT NOW HAS [employer] MEDICARE. EXPLAINED THE SELF PAY RATES. PT HAS MOUTH SORES THAT WILL BE TESTED FOR CA NEXT WEEK. PT DOES NOT HAVE RESULTS OF MOM'S GENETIC TESTING BUT SHE STATES THAT IT WAS NEG. [facility] AND CALL BACK TO SCHEDULE. SJ documented in this encounter Plan of Treatment Not on file documented as of this encounter Visit Diagnoses Not on filedocumented in this encounter Additional Health Concerns Assessment Noted Time PHQ-9 Depression Total Score: 0 07/24/20 20 3:08 PM EST documented as of this encounter Care Teams Business Intelligence Director Relationship Specialty Start Date End Date [facility], [place] [address] PCP - General 07/10/21 documented as of this encounter
--- NOTE | 2025-04-12 07:20 | ECG_ITS ---
[facility] Test Date: 2025-04-12 Pat Name: LEILA HASSAN Department: Room: - Gender: Female Irrigator Head: : 1990 Requested By: [id number] Order Number: [id number] Reading MD: JASON MEAD M.D. Measurements Intervals Wayne Rate: 77 P: 16 KS: 136 QRS: 32 QRSD: 84 T: 2 QT: 372 QTc: 404 Interpretive Statements 1100 Sinus rhythm 9110 normal ECG Compared to ECG 07/02/2024 09:57:01 No significant changes Electronically Signed On 04-12-2025 8:08:38 EDT by JASON MEAD M.D.
[2025-04-12 08:11] LABS: Hematocrit 38.9 % (36.0-48.0); Hemoglobin 13.4 g/dL (12.0-16.0); Immature Granulocytes Abs Auto 0.04 10^3/uL (0.00-0.03); Immature Granulocytes Pct Auto 0.4 % (0.0-0.5); Lymphocytes Absolute Auto 1.7 10^3/uL (1.2-3.8); Mean Corpuscular HGB Conc 34.4 g/dL (29.9-35.2); Mean Corpuscular Hemoglobin 32.9 pg (26.7-34.0); Mean Corpuscular Volume 95.6 fL (81.0-99.0); Platelet Count 337 10^3/uL (150-450); Red Blood Count 4.07 10^6/uL (4.20-5.40); White Blood Count 10.7 10^3/uL (4.0-11.0)
[2025-04-12] MEDS: ASPIRIN 81 MG TAB.CHEW 162 MG PO (08:13)
--- NOTE | 2025-04-12 08:13 | XR_ITS ---
The [place] [id number] Patient Name: LEILA HASSAN MRN: [id number] date: 1990 Sex: F Assigned Patient Location: ER Current Patient Location: ER Accession/Order Number: [id number] Exam Date: 04/12/2025 08:22 Report Date: 04/12/2025 08:25 At the request of: LADY SANCHEZ MD Procedure: XR chest 2V Chest 2 views CLINICAL HISTORY: sob COMPARISON: Chest 07/02/2024 FINDINGS: Heart normal in size. Lungs are clear. No free air. XR/XR chest 2V IMPRESSION: NO ACUTE CARDIOPULMONARY ABNORMALITY. Impression dictated by: Raoul Newton Jr., D.OEusebio 04/12/2025 8:25 AM Dictation Location: [place] [address] Electronically authenticated by: [id number] Y Date: 04/12/2025 08:25
[2025-04-12 08:26] LABS: Anion Gap 14.6
[2025-04-12 08:33] LABS: Alanine Aminotransferase 34 U/L (14-59); Albumin Globulin Ratio 0.9; Albumin Level 3.8 g/dL (3.4-5.0); Alkaline Phosphatase 67 U/L (46-116); Aspartate Amino Transferase 43 U/L (15-37); Blood Urea Nitrogen 12.0 mg/dL (7.0-18.0); Calcium 8.9 mg/dL (8.5-10.1); Carbon Dioxide 27.6 mmol/L (21.0-32.0); Chloride 100 mmol/L (98-107); Estimated GFR (African America >60 (>=60 mL/min/1.73m^2); Estimated GFR (Non-African Ame >60 (>=60 mL/min/1.73m^2); Globulin 4.0 g/dL; Glucose 95 mg/dL (74-106); Lipase 55.0 U/L (16.0-77.0); NT Pro B Type Natriuretic Pept 37.0 pg/mL (<=450.0); Potassium 4.2 mmol/L (3.5-5.1); Sodium 138 mmol/L (136-145); Total Protein 7.8 g/dL (6.4-8.2)
[2025-04-12 08:46] LABS: INR 0.97; Prothrombin Time 10.3 sec (9.0-11.6)
--- NOTE | 2025-04-12 09:18 | ED.GENADUL1 ---
HPI HPI - General Adult General Chief complaint: Chest Pain Stated complaint: CHEST PAIN, SHORTNESS OF BREATH Time Seen by Provider: 04/12/25 07:58 Source: patient Mode of arrival: walk-in Limitations: no limitations History of Present Illness HPI narrative: Patient is a 34-year-old female who is presenting to the ER today with chief complaint of chest heaviness, tightness, and having more pain with laying down flat breathing thank compared to sitting up. Patient has no recent traveling. Patient had a hysterectomy. Patient smokes 1.5 packs of cigarettes a day for many years, greater than 20 years. Patient denies any illicit drug use. Patient is never had a stress test or echocardiogram. Patient does have mental health history. Patient does have a psychiatrist, Dr. Chaparro. Patient has no recent heavy lifting, twisting, turning, no trauma. Patient has no rash. Patient has no abdominal pain, nausea, vomiting, or any other acute complaints. Patient chief concern is that she is alcohol dependent. Patient says that she drinks 3 to 4 -- 24 ounce malt liquors that are 8%. Patient has a history of gastric bypass. Patient states that after 2 beers she will feel intoxicated. Patient is a G3, P4, she adopted 1 child. Patient had a hysterectomy, states she is not . Patient wants to stop drinking alcohol. Patient is asking for Xanax, stating that it has helped her in the past with alcohol withdrawal symptoms. Patient tried to do this on her own at home. Patient has been in IOP previously, stating that she did not feel like she belonged, for multiple different reasons and excuses comparing herself to other individuals. All systems are negative except as noted/marked. All systems reviewed and otherwise negative. Nurses note and vital signs reviewed and patient is not hypoxic. General: The patient appears well and in no apparent distress. Patient is resting comfortably on cart. Patient is not toxic, lethargic, or listless Skin: Warm, dry, no pallor noted. There is no rash noted. No petechiae, purpura. Head: Normocephalic, atraumatic Eye: Normal conjunctiva, no drainage, EOMI. PERRL Ears, Nose, Mouth, and Throat: oral mucosa is moist. Nares patent. Mouth without vesicles. Cardiovascular: Regular Rate and Rhythm, no murmur, gallop, rub. No tenderness to palpation to anterior, lateral, posterior chest wall. Respiratory: Patient is in no distress, no accessory muscle use, lungs are clear to auscultation, no wheezing, rales or rhonchi Back: non-tender, no CVA tenderness bilaterally to percussion. No CT LS midline pain GI: No midepigastric tenderness to palpation, no tenderness to palpation, no masses appreciated. No rebound, guarding, or rigidity noted. No distention Musculoskeletal: Patient has full range of motion of all of the extremities, no motor, sensory, or focal neurological deficits Neurological: A&O x4, normal speech Psychiatric: Cooperative, not shaking, no signs of DTs. Related Data Home Medications ?Medication ?Instructions ?Recorded ?Confirmed duloxetine 60 mg capsule,delayed 60 mg PO BID 06/10/23 04/12/25 release lamotrigine 25 mg tablet 100 mg PO QDAY 04/08/24 04/12/25 gabapentin 100 mg capsule 600 mg PO TID 01/23/25 04/12/25 trazodone 100 mg tablet 200 mg PO .qhs 01/23/25 04/12/25 cariprazine 1.5 mg capsule mg 04/12/25 (Vraylar) nifedipine 30 mg tablet,extended mg PO 04/12/25 release Previous Rx's ?Medication ?Instructions ?Recorded tjebqokhdt-auppdtglspeoa-qwodfxye 1 cap PO Q6H PRN pain 5 days #20 04/08/25 50 mg-300 mg-40 mg capsule caps (Fioricet) chlordiazepoxide HCl 25 mg capsule 25 mg PO Q8H PRN alcohol 04/12/25 withdrawal #10 caps ondansetron 4 mg disintegrating 4 mg PO Q4H PRN nausea and 04/12/25 tablet vomiting 3 days #6 tabs Allergies Allergy/AdvReac Type Severity Reaction Status Date / Time buspirone (From BuSpar) Allergy Intermediate tachycardia Verified 03/16/25 06:33 aripiprazole (From Abilify) Allergy Unknown Verified 03/16/25 06:33 COCONUT Allergy Mild Hives Uncoded 08/15/24 14:56 Opioid HPI Opioid Management Most Recent Opioid Data: Last Pain Scale 6 Today, 07:15 Last NOV Pain Assessment 04/08/25, 08:59 Ur Phencyclidine Scrn, (NEGATIVE) Negative 07/22/24, 13:51 PFSH PFSH Social History Smoking status: Current every day smoker Little interest or pleasure in doing things: not at all Feeling down, depressed, or hopeless: not at all Exam Constitutional Vital Signs, click to edit/add: Last Vital Signs Temp 98.2 F 04/12/25 07:03 Pulse 68 04/12/25 08:50 Resp 21 H 04/12/25 08:50 BP 135/85 04/12/25 08:47 Pulse Ox 99 04/12/25 08:50 O2 Del Method Room Air 04/12/25 07:03 Course Vital Signs Vital signs: Vital Signs Temperature 98.2 F 04/12/25 07:03 Pulse Rate 91 H 04/12/25 07:03 Respiratory Rate 18 04/12/25 07:03 Blood Pressure 154/106 H 04/12/25 07:03 Pulse Oximetry 98 04/12/25 07:03 Oxygen Delivery Method Room Air 04/12/25 07:03 Temperature 98.2 F 04/12/25 07:03 Pulse Rate 68 04/12/25 08:50 Respiratory Rate 21 H 04/12/25 08:50 Blood Pressure 135/85 04/12/25 08:47 Pulse Oximetry 99 04/12/25 08:50 Oxygen Delivery Method Room Air 04/12/25 07:03 Medical Decision Making [facility] Narrative Medical decision making narrative: Patient seen and examined: Patient will have IV cardiac evaluation Differential diagnosis includes but is not limited to: AK, pleurisy, pneumothorax, PE, anxiety, alcohol dependence Diagnostics and management: Patient will have laboratory studies Relevant laboratory interpretation: No acute findings Radiological studies: Please see the formal radiological report. No acute cardio pulmonary findings Reevaluation: Patient's symptoms have improved at discharge with no intervention besides aspirin. Shared decision making: I discussed with the patient the necessary laboratory findings and radiological findings. Social barriers to healthcare: There are no food insecurities, there is no issue with transportation, there are no insurance barriers. Disposition: I discussed with the patient lab findings. 5-minute discussion on alcohol rehabilitation was had as well. Patient states she is try to the IOP several times and patient felt like she did not belong. Different resources were discussed. Patient does have a psychiatrist, Dr. Chaparro. Patient is trying to stop drinking alcohol on her own, patient was given Zofran and Librium to help with withdrawal at home. Recommendation of following up with PCP for additional outpatient testing as indicated. No question at discharge. Lab Data Lab results reviewed: Yes I reviewed the patient's lab results Labs: Lab Results 04/12/25 Range/Units 08:05 WBC 10.7 (4.0-11.0) 10^3/uL RBC 4.07 L (4.20-5.40) 10^6/uL Hgb 13.4 (12.0-16.0) g/dL Hct 38.9 (36.0-48.0) % MCV 95.6 (81.0-99.0) fL MCH 32.9 (26.7-34.0) pg MCHC 34.4 (29.9-35.2) g/dL RDW 14.1 (11.0-15.0) % Plt Count 337 (150-450) 10^3/uL MPV 10.5 (9.5-13.5) fL Neut % (Auto) 73.8 (43.0-75.0) % Lymph % (Auto) 16.1 L (20.5-60.0) % Cooper % (Auto) 6.9 (1.7-12.0) % Eos % (Auto) 2.1 (0.9-7.0) % Baso % (Auto) 0.7 (0.2-2.0) % Neut # (Auto) 7.9 H (1.4-6.5) 10^3/uL Lymph # (Auto) 1.7 (1.2-3.8) 10^3/uL Cooper # (Auto) 0.7 (0.3-0.8) 10^3/uL Eos # (Auto) 0.2 (0.0-0.7) 10^3/uL Baso # (Auto) 0.1 (0.0-0.1) 10^3/uL Abs Immat Gran (auto) 0.04 H (0.00-0.03) 10^3/uL Imm/Tot Granulo (auto) 0.4 (0.0-0.5) % PT 10.3 (9.0-11.6) sec INR 0.97 D-Dimer 0.21 (<=0.59) mg/L FEU Sodium 138 (136-145) mmol/L Potassium 4.2 (3.5-5.1) mmol/L Chloride 100 (98-107) mmol/L Carbon Dioxide 27.6 (21.0-32.0) mmol/L Anion Gap 14.6 BUN 12.0 (7.0-18.0) mg/dL Creatinine 0.74 (0.55-1.02) mg/dL Est GFR ( Amer) >60 (>=60 mL/min/1.73m^2) Est GFR (Non-Af Amer) >60 (>=60 mL/min/1.73m^2) BUN/Creatinine Ratio 16.2 Glucose 95 (74-106) mg/dL Calcium 8.9 (8.5-10.1) mg/dL Total Bilirubin 0.3 (0.2-1.0) mg/dL AST 43 H (15-37) U/L ALT 34 (14-59) U/L Alkaline Phosphatase 67 (46-116) U/L Troponin I High Sens 4.2 (4.0-51.3) pg/mL NT-Pro-B Natriuret Pep 37.0 (<=450.0) pg/mL Total Protein 7.8 (6.4-8.2) g/dL Albumin 3.8 (3.4-5.0) g/dL Globulin 4.0 g/dL Albumin/Globulin Ratio 0.9 Lipase 55.0 (16.0-77.0) U/L ECG Data Attestation: I personally reviewed and interpreted this ECG as follows: (EKG interpretation. Normal sinus rhythm at 77 beats a minute. Normal axis deviation. No acute ST elevation, no acute ectopy. QTc of 404) Discharge Plan Discharge Chief Complaint: Chest Pain Clinical Impression: Chest pain, Alcohol dependence, Dyspnea Patient Disposition: Home, Self-Care Time of Disposition Decision: 08:53 Condition: Fair Prescriptions / Home Meds: New chlordiazepoxide HCl 25 mg capsule 25 mg PO Q8H PRN (Reason: alcohol withdrawal) Qty: 10 0RF ondansetron 4 mg tablet,disintegrating 4 mg PO Q4H PRN (Reason: nausea and vomiting) 3 Days Qty: 6 0RF No Action duloxetine 60 mg capsule,delayed release(DR/EC) 60 mg PO BID lamotrigine 25 mg tablet 100 mg PO QDAY gabapentin 100 mg capsule 600 mg PO TID trazodone 100 mg tablet 200 mg PO .qhs mbbeonoelv-hkcmeevwayjso-yqre [Fioricet] 50-300-40 mg capsule 1 cap PO Q6H PRN (Reason: pain) 5 Days Qty: 20 0RF nifedipine 30 mg tablet extended release PO Vraylar 1.5 mg capsule Print Language: Spanish Instructions: Chest Pain (ED), Dyspnea (ED), Alcohol Dependence (ED) Additional Instructions: Follow-up with PCP. Follow-up with additional outpatient stress test, echocardiogram as needed if pain continues as indicated Look into your insurance to see what could be covered for inpatient versus outpatient rehabilitation for alcohol dependence You have been given additional prescription for Zofran, also given Librium to help with any type of withdrawal symptoms. Referrals: KAYLEE AMES [Primary Care Provider, Unknown] - 1 week Discharge Date/Time: 04/12/25 09:06
== END 2025-04-12 09:06 | disposition home or self-care (01) ==
PROVIDERS: Emergency Provider Emergency Medicine
DX: R07.9 Chest pain, unspecified (principal); R06.02 Shortness of breath; Z90.710 Acquired absence of both cervix and uterus; F17.210 Nicotine dependence, cigarettes, uncomplicated; F10.20 Alcohol dependence, uncomplicated; Z98.84 Bariatric surgery status; R06.00 Dyspnea, unspecified
CPT/HCPCS: 36415; 71046; 80053; 83690; 83880; 84484; 85025; 85378; 85610; 93005; 99285

== ENCOUNTER 2025-05-01 08:11 | Outpatient (OUT) | payer MEDICARE, MEDICAID, SELFPAY ==
--- OUTSIDE RECORDS SUMMARY | 2024-11-08 06:00 | XMS_ITS ---
Author Organization [facility] es Address [address] [facility] [place] [address] Care Team Providers Care E Commerce Specialist Name Role Phone Ilda Lloyd Primary Care Provider Raghav Walton Unavailable [phone] Jennifer Shaikh Unavailable [phone] Encounters Encounter Location Date Provider Diagnosis [address] [place] [address] 11/08/2024 Jennifer Shaikh Plan Of Treatment No Information Progress Notes * LEILA HASSAN LDOB:1990 (34 yo F)Acc No.[id number]:11/08/2024 F/U - Patient Patient: RUTH BARBOURURSULA Bach Provider: Crystal Shaikh :1990 A ge:33 Y S ex:Female Date:11/08/2024 Address:[address] [place], [place] [id number] Pcp:Ilda Lloyd Subjective: * Chief Complaints: * Objective: Therapeutic Interventions: Assessment: Plan: * Images: Care Plan Details* * Electronic signature of FRANCISCO JAVIER Reese on 05/01/2025 at 08:17 AM EDT Sign off status: Pending * Provider: Crystal Shaikh Date: 0 11/08/2024 Generated for Printi ng/Faxing/eTransmitting on: 0 05/01/2025 08:17 AM EDT
--- OUTSIDE RECORDS SUMMARY | 2024-11-22 05:30 | XMS_ITS ---
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 1 month f/u. * Medical History: Objective: * Vitals: Assessment: Plan: * Treatment: * Images: * Electronic signature of VANNESA Smith on 05/01/2025 at 08:17 AM EDT Sign off status: Pending * Provider: VANNESA Ornelas Date: 0 11/22/2024 Generated for Printi ng/Faxing/eTransmitting on: 0 05/01/2025 08:17 AM EDT
--- OUTSIDE RECORDS SUMMARY | 2025-05-01 08:17 | XMS_ITS | Clinical Summary ---
Author Organization [facility] Address [address] [facility], [address] [place] [address] Care Team Providers Care Neurosurgery Spine Physician Name Role Phone Jennie Durand DO Primary Care Provider [phone] Allergies Active Allergy Reactions Criticality Noted Date [...] Mon Post-op 04-24-21 222 y Completed at [facility]- will request 6 Mon Post-op 07-24-21 204 [...] Type Department Care Team Description 02/01/2025 Telephone Cyndie ReturnHauler Invasive Bariatric Surg [address] [facility] [address] [place] [address] Marii Dasilva APRN - IRENE Nausea from Last 3 Months Family History Medical [...] 03/19/2023, 07/18/2022, Additional history exists HPV vaccine (No Doses Required) Completed Hepatitis A vaccine Aged Out No longe [...] - 6.0 % 08/12/2023 7:45 AM EST [employer] Estimated Avg Glucose 114 mg/dL 08/12/2023 7:45 AM EST [employer] Comment: The ADA and AACC recommend providing the estimated average glucose result to permit better patient understanding of their HBA1c result. BLOOD SPECIMEN / Unknown 08/12/2023 7:45 AM EST 08/12/2023 7:46 AM EST Koki Chan AQUATICS MANAGER - PLAYGROUND DIRECTOR CHEMISTRY ORDERABLES Final Result [facility] [address] [place] [address], [facility] [phone] [address], [facility] [phone] from Last 3 Months or Most Recently Relevant to Health Maintenance Insurance MEDICARE [place]ICAID [place] Member Subscriber Plan / Payer (Ef fective 2023-Present) Name:Shazia Chou Relation to Subscriber:Self Name:Shazia Chou Payer ID:Not on file Group ID:Not on file Type:Not on file Address: [address] [place] [address] [id number] BCBS MEDICARE on file Advance Directives * Full Code (Latest Code Status on File) Date Activated Date Inactivated Comments 01/31/2021 11:30 PM 02/01/2021 12:23 PM * Full Code Date Activated Date Inactivated Comments 01/07/2021 12:20 PM 01/08/2021 8:31 PM Care Teams Neurosurgery Spine Physician Relationship Specialty Start Date End Date Jennie Durand DO [address] [place] [id number] PCP - General Family Medicine 11/19/22
--- OUTSIDE RECORDS SUMMARY | 2025-05-01 08:17 | XMS_ITS | Encounter Summary ---
Author Organization [facility] Address [address] [place] [address] Care Team Providers Care Unit Assembler Name Role Phone Nilo Prado MD Unavailable Elia Min DO Primary Care Provider [phone] Tevin Villafana DO Primary Care Provider [phone] Natacha Schroeder DO Unavailable Lisha Worthington CIRCUIT CLERK.TOWER DRAGLINE OPERATOR Unavailable Source Comments In the event this information is protected by the Federal Confidentiality of Alcohol and Drug AbusePatient Records regulations: The Federal rules restrict any use of the information to criminally investigate or prosecute any alcohol or drug abuse patient.[facility] Encounter Details Date Type Department Care Team (Late st Contact Info) Description 05/20/2024 Patient [facility] HB-3 [address] [place] [address] Jackie Hunt RPh At your next appointment, choose [facility]. Social History Tobacco Use Types Packs/Day Years Used Date Smoking Tobacco: Every Day Cigarettes 1 24 Smokeless Tobacco: Never Alcohol Use Standard Drinks/Week Comments Yes 0 (1 standard drink = 0.6 oz pur e alcohol) [facility] Utilities Answer Date Recorded In the past 12 months has th e electric, gas, oil, or water [employer] threatened to shut off services in your home? No 03/02/2024 Social Connection and Isolation Panel Answer Date Recorded In a typical week, how many times do you talk on the phone with family, friends, or neighbors? More than three times a week 03/02/2024 How often do you get togethe r with friends or relatives? Never 03/02/2024 How often do you attend chur ch or voodoo services? Never 03/02/2024 Do you belong to any clubs o r organizations such as spiritism groups, unions, fraternal or athletic groups, or [...] Answer Date Recorded PHQ-2 score 1 02/20/2023 [facility] - Occupational Stress Questionnaire Answer Date [...] place to sleep or slept in a retirement (including now)? No 03/02/2024 Area Deprivation Index Answer Date David rded National Score (1-100), lower number is lower ri sk 78 02/27/2023 State Score (1-10), lower number is lower risk 6 02/27/2023 Data from: https://www.neighborhoodatlas.medicine.[facility].edu/. Last address used for calculation [address] [place] [address] 02/27/2023 Comments No Sex and Gender Information [...] AM EDT Office Visit Breast Center [address] [place] [address] Molly Kramer APRN.[facility] [address] [place] [id number] LT BREAST PAIN WITH DISCOLORATION 05/16/2025 9:30 AM EDT Appointment Mammography [address] [place] [address] BREAST PAIN WITH DISCOLORATION documented as of this encounter Visit Diagnoses Not on filedocumented in this encounter Care Teams Unit Assembler Relationship Specialty Start Date End Date Elia Min DO [address] [place] [address] PCP - General Family Medicine 01/04/24 05/29/24 [place] [address] [place] [address] PCP - General Family Medicine 05/30/24 02/13/25 Nilo Prado MD [address] [place] [address] Referring Gastroenterology 08/17/23 [place] [address] [place] [address] Mushroom Press Operator Family Medicine 08/22/24 12/15/24 Lisha Worthington APRN.[facility] [address] [place] [address] Mushroom Press Operator Family Medicine 12/16/24 documented as of this encounter
--- OUTSIDE RECORDS SUMMARY | 2025-05-01 08:17 | XMS_ITS | Encounter Summary ---
Author Organization [facility] Address [address] [place] [address] Care Team Providers Care Environmental Engineering Manager Name Role Phone Nilo Prado MD Unavailable Elia Min DO Primary Care Provider [phone] Tevin Villafana DO Primary Care Provider [phone] Natacha Schroeder DO Unavailable Lisha Worthington TALENT ANALYST.CAPTURE MANAGER Unavailable Source Comments In the event this information is protected by the Federal Confidentiality of Alcohol and Drug AbusePatient Records regulations: The Federal rules restrict any use of the information to criminally investigate or prosecute any alcohol or drug abuse patient.[facility] Encounter Details Date Type Department Care Team (Late st Contact Info) Description 05/12/2024 Patient Msg Family Medicine [address] [place] [address] Provider, Ccf Outstanding Orders Social History Tobacco Use Types Packs/Day Years Used Date Smoking Tobacco: Every Day Cigarettes 1 24 Smokeless Tobacco: Never Alcohol Use Standard Drinks/Week Comments Yes 0 (1 standard drink = 0.6 oz pur e alcohol) [facility] Utilities Answer Date Recorded In the past 12 months has [employer], gas, oil, or water company threatened to [...] often do you attend chur ch or advent services? Never 03/02/2024 Do you belong to [...] Answer Date Recorded PHQ-2 score 1 02/20/2023 [facility] - Occupational Stress Questionnaire Answer [...] slept in a correction (including now)? No 03/02/2024 Area Deprivation Index Answer Date David rded National Score (1-100), lower number is lower ri sk 78 02/27/2023 State Score (1-10), lower number is lower risk 6 02/27/2023 Data from: https://www.neighborhoodatlas.medicine.[facility].edu/. Last address used for calculation [address] 02/27/2023 Comments No Sex and Gender [...] AM EDT Office Visit Breast Center [address] [place] [address] Molly Kramer APRN.CAPTURE MANAGER [address] [place] [address] LT BREAST PAIN WITH DISCOLORATION 05/16/2025 9:30 AM EDT Appointment Mammography [address] [place] [address] LT BREAST PAIN WITH DISCOLORATION documented as of this encounter Visit Diagnoses Not on filedocumented in this encounter Care Teams Environmental Engineering Manager Relationship Specialty Start Date End Date Elia Min DO [address] [place] [address] PCP - General Family Medicine 01/04/24 05/29/24 [place] [address] [place] [address] PCP - General Family Medicine 05/30/24 02/13/25 Nilo Prado MD [address] [place] [address] Referring Gastroenterology 08/17/23 [place] [address] [place] [address] Profiling Machine Operator Family Medicine 08/22/24 12/15/24 Lisha Worthington APRN.IRENE [address] [place] [address] Profiling Machine Operator Family Medicine 12/16/24 documented as of this encounter
--- OUTSIDE RECORDS SUMMARY | 2025-05-01 08:18 | XMS_ITS | Encounter Summary ---
Author Organization [facility] Address [address] [place] [address] Care Team Providers Care Bar Steward Name Role Phone Nilo Prado MD Unavailable Elia Min DO Primary Care Provider [phone] Tevin Villafana DO Primary Care Provider [phone] Natacha Schroeder DO Unavailable Lisha Worthington NONDESTRUCTIVE TESTER.CLINICAL NURSING COORDINATOR Unavailable Source Comments In the event this information is protected by the Federal Confidentiality of Alcohol and Drug AbusePatient Records regulations: The Federal rules restrict any use of the information to criminally investigate or prosecute any alcohol or drug abuse patient.[facility] Encounter Details Date Type Department Care Team (Late st Contact Info) Description 01/27/2023 [place] [address] Provider, Ccf Questionnaire Submission Social History Tobacco Use Types Packs/Day Years Used Date Smoking Tobacco: Every Day Cigarettes Smokeless Tobacco: Never Alcohol Use Standard Drinks/Week Comments Yes 0 (1 standard drink = 0.6 oz pur e alcohol) beer and wine once a month Social Connection and Isolation Panel Answer Date Recorded In a typical week, how many times do you talk on the phone with family, friends, or neighbors? More than three times a week 07/03/2022 How often do you get togethe r with friends or relatives? Once a week 07/03/2022 How often do you attend chur ch or scientologist services? Never 07/03/2022 Do you belong to any clubs o r organizations such as caodaism groups, unions, fraternal or athletic groups, or [...] care, and heating? Not very hard 07/03/2022 [facility] Occupat ional Health - Occupational Stress [...] place to sleep or slept in a intermediate (including now)? No 07/03/2022 Area Deprivation Index Answer Date David rded National Score (1-100), lower number is lower ri sk 73 09/29/2022 State Score (1-10), lower number is lower risk N ot on file 09/29/2022 Data from: https://www.neighborhoodatlas.medicine.[facility].edu/. Last address used for calculation [address] [place] [address] 09/29/2022 Comments Unknown Sex and Gender Information [...] AM EDT Office Visit Breast Center [address] [place] [address] Molly Kramer APRN.CLINICAL NURSING COORDINATOR [address] [place] [address] [id number] LT BREAST PAIN WITH DISCOLORATION 05/16/2025 9:30 AM EDT Appointment Mammography [address] [place] [phone] LT BREAST PAIN WITH DISCOLORATION documented as of this encounter Visit Diagnoses Not on filedocumented in this encounter Care Teams Bar Steward Relationship Specialty Start Date End Date Elia Min DO [address] [place] [address] PCP - General Family Medicine 01/04/24 05/29/24 [place] [address] [place] [address] PCP - General Family Medicine 05/30/24 02/13/25 Nilo Prado MD [address] [place] [address] Referring Gastroenterology 08/17/23 [place] [address] [place] [address] Aeronautical Engineering Professor Family Medicine 08/22/24 12/15/24 Lisha Worthington, NONDESTRUCTIVE TESTER.CLINICAL NURSING COORDINATOR [address] [place] [address] Aeronautical Engineering Professor Family Medicine 12/16/24 documented as of this encounter
--- OUTSIDE RECORDS SUMMARY | 2025-05-01 08:18 | XMS_ITS | Encounter Summary ---
Author Organization [facility] Address [address] [place] [address] Care Team Providers Care Underwriting Service Representative Name Role Phone Nilo Prado MD Unavailable Tevin Villafana DO Primary Care Provider [phone] Natacha Schroeder DO Unavailable Lisha Worthington CHEMICAL DEPENDENCY COUNSELOR.EQUINE BREEDER Unavailable Source Comments In the event this information is protected by the Federal Confidentiality of Alcohol and Drug AbusePatient Records regulations: The Federal rules restrict any use of the information to criminally investigate or prosecute any alcohol or drug abuse patient.[facility] Encounter Details Date Type Department Care Team (Late st Contact Info) Description 10/17/2024 Patient Msg [facility] [place] [address] [place] [address] Provider, Ccf Scheduling Needed Social History Tobacco Use Types Packs/Day Years Used Date Smoking Tobacco: Every Day Cigarettes 1 24 Smokeless Tobacco: Never Alcohol Use Standard Drinks/Week Comments Yes 0 (1 standard drink = 0.6 oz pur e alcohol) 13 days sober- 07/04/2024 [facility] Utilities Answer Date Recorded In the past 12 months has [employer], gas, oil, or water company threatened to [...] often do you attend chur ch or mandaen services? Never 03/02/2024 Do you belong to any clubs o r organizations such as advent groups, unions, fraternal or athletic groups, or [...] Answer Date Recorded PHQ-2 score 2 07/01/2024 [facility] - Occupational Stress Questionnaire Answer [...] in a skilled nursing (including now)? No 03/02/2024 Area Deprivation Index Answer Date David rded National Score (1-100), lower number is lower ri sk 78 02/27/2023 State Score (1-10), lower number is lower risk 6 02/27/2023 Data from: https://www.neighborhoodatlas.medicine.[facility].edu/. Last address used for calculation [address] 02/27/2023 Comments No Sex and Gender [...] AM EDT Office Visit Breast Center [address] [place] [address] Molly Kramer, CEDRIC.EQUINE BREEDER [address] [place] [address] LT BREAST PAIN WITH DISCOLORATION 05/16/2025 9:30 AM EDT Appointment Mammography [address] [place] [phone] LT BREAST PAIN WITH DISCOLORATION documented as of this encounter Visit Diagnoses Not on filedocumented in this encounter Care Teams Underwriting Service Representative Relationship Specialty Start [place] [address] [place] [address] PCP - General Family Medicine 05/30/24 02/13/25 Nilo Prado MD [address] [place] [address] Referring Gastroenterology 08/17/23 [place] [address] [place] [address] Teacher Resource Family Medicine 08/22/24 12/15/24 Lisha Worthington APRN.CNP [address] [place] [address] Teacher Resource Family Medicine 12/16/24 documented as of this encounter
--- OUTSIDE RECORDS SUMMARY | 2025-05-01 08:18 | XMS_ITS | Encounter Summary ---
Author Organization [facility] Address [address] [place] [address] Care Team Providers Care Press Operator [employer] Products Name Role Phone Nilo Prado MD Unavailable Elia Min DO Primary Care Provider [phone] Tevin Villafana DO Primary Care Provider [phone] Natacha Schroeder DO Unavailable Lisha Worthington APRN.TREATING ENGINEER Unavailable Source Comments In the event this information is protected by the Federal Confidentiality of Alcohol and Drug AbusePatient Records regulations: The Federal rules restrict any use of the information to criminally investigate or prosecute any alcohol or drug abuse patient.[facility] Encounter Details Date Type Department Care Team (Late st Contact Info) Description 01/05/2024 Get Medical Advice Family Medicine [address] [place] [address] Elia Min DO [address] [place] [address] Medicine Social History Tobacco Use Types Packs/Day [...] often do you attend chur ch or tenriism services? Never 07/03/2022 Do you belong to [...] Answer Date Recorded PHQ-2 score 1 02/20/2023 [facility] - Occupational Stress Questionnaire Answer Date Recorded [...] place to sleep or slept in a jail (including now)? No 07/03/2022 Area Deprivation Index Answer Date David rded National Score (1-100), lower number is lower ri sk 78 02/27/2023 State Score (1-10), lower number is lower risk 6 02/27/2023 Data from: https://www.neighborhoodatlas.medicine.[facility].edu/. Last address used for calculation [address] [place] [address] 02/27/2023 Comments Unknown Sex and Gender Information [...] AM EDT Office Visit Breast Center [address] [place] [address] Molly Kramer APRN.TREATING ENGINEER [address] [place] [address] LT BREAST PAIN WITH DISCOLORATION 05/16/2025 9:30 AM EDT Appointment Mammography [address] [place] [address] BREAST PAIN WITH DISCOLORATION documented as of this encounter Visit Diagnoses Not on filedocumented in this encounter Care Teams Press Operator Carbon Products Relationship Specialty Start Date End Date Elia Min DO [address] [place] [address] PCP - General Family Medicine 01/04/24 05/29/24 [place] [address] [place] [address] PCP - General Family Medicine 05/30/24 02/13/25 Nilo Prado MD [address] [place] [address] Referring Gastroenterology 08/17/23 [place] [address] [place] [address] Door Framer Family Medicine 08/22/24 12/15/24 Lisha Worthington APRN.IRENE [address] [place] [address] Door Framer Family Medicine 12/16/24 documented as of this encounter
--- OUTSIDE RECORDS SUMMARY | 2025-05-01 08:18 | XMS_ITS | Encounter Summary ---
Author Organization [facility] Address [address] [place] [address] Care Team Providers Care Manufacturing Manager Name Role Phone Nilo Prado MD Unavailable Elia Min DO Primary Care Provider [phone] Tevin Villafana DO Primary Care Provider [phone] Natacha Schroeder DO Unavailable Lisha Worthington PETROPHYSICIST.PRACTICE PERFORMANCE MANAGER Unavailable Source Comments In the event this information is protected by the Federal Confidentiality of Alcohol and Drug AbusePatient Records regulations: The Federal rules restrict any use of the information to criminally investigate or prosecute any alcohol or drug abuse patient.[facility] Encounter Details Date Type Department Care Team (Late st Contact Info) Description 03/10/2024 Patient Msg Colorectal Surgery [address] [place], [place] [phone] Provider, Ashwin Your Virtual Visit with Dr Aguirre has been scheduled for 03/14/24 at 4:00PM Social History Tobacco Use Types Packs/Day Years Used Date Smoking Tobacco: Every Day Cigarettes 24 Smokeless Tobacco: Never Alcohol Use Standard Drinks/Week Comments Yes 0 (1 standard drink = 0.6 oz pur e alcohol) [facility] Utilities Answer Date Recorded In the [...] attend chur ch or tenriism services? Never 03/02/2024 Do you belong to any clubs o r organizations such as baptist groups, unions, fraternal or athletic groups, or [...] PHQ-2 score 1 02/20/2023 [facility] of Occupat ional Health - Occupational Stress [...] place to sleep or slept in a halfway (including now)? No 03/02/2024 Area Deprivation Index Answer Date David rded National Score (1-100), lower number is lower ri sk 78 02/27/2023 State Score (1-10), lower number is lower risk 6 02/27/2023 Data from: https://www.neighborhoodatlas.medicine.[facility].edu/. Last address used for calculation [address] 02/27/2023 Comments No Sex and Gender Information [...] AM EDT Office Visit Breast Center [address] [place] [phone] Molly Kramer APRN.PRACTICE PERFORMANCE MANAGER [address] [place] [address] LT BREAST PAIN WITH DISCOLORATION 05/16/2025 9:30 AM EDT Appointment Mammography [address] [address] LT BREAST PAIN WITH DISCOLORATION documented as of this encounter Visit Diagnoses Not on filedocumented in this encounter Care Teams Manufacturing Manager Relationship Specialty Start Date End Date Elia Min DO [address] [place] [address] PCP - General Family Medicine 01/04/24 05/29/24 [place] [address] [place] [address] PCP - General Family Medicine 05/30/24 02/13/25 Nilo Prado MD [address] [place] [address] Referring Gastroenterology 08/17/23 [place] [address] [place] [address] Front Window Cashier Family Medicine 08/22/24 12/15/24 Lisha Worthington APRN.CNP [address] [place] [address] Front Window Cashier Family Medicine 12/16/24 documented as of this encounter
--- OUTSIDE RECORDS SUMMARY | 2025-05-01 08:18 | XMS_ITS | Encounter Summary ---
Author Organization [facility] Address [facility] [place] [address] Care Team Providers Care Secondary Education Professor Name Role Phone Nilo Prado MD Unavailable Tevin Villafana DO Primary Care Provider [phone] Natacha Schroeder DO Unavailable Lisha Worthington BULB ASSEMBLER.JOINTER MACHINE Unavailable Source Comments In the event this information is protected by the Federal Confidentiality of Alcohol and Drug AbusePatient Records regulations: The Federal rules restrict any use of the information to criminally investigate or prosecute any alcohol or drug abuse patient.[facility] Encounter Details Date Type Department Care Team (Late st Contact Info) Description 07/14/2024 Patient Msg General Surgery [address] [place] [phone] Sonido Aguirre MD [address] [place] [address] Appointment Request Social History Tobacco Use Types Packs/Day Years Used Date Smoking Tobacco: Every Day Cigarettes 1 24 Smokeless Tobacco: Never Alcohol Use Standard Drinks/Week Comments Yes 0 (1 standard drink = 0.6 oz pur e alcohol) 13 days sober- 07/04/2024 [facility] Utilities Answer Date Recorded In the [...] often do you attend chur ch or druze services? Never 03/02/2024 Do you belong to any clubs o r organizations such as baptism groups, unions, fraternal or athletic groups, or [...] Answer Date Recorded PHQ-2 score 2 07/01/2024 [facility] of Occupat ional Health - Occupational [...] slept in a fdc (including now)? No 03/02/2024 Area Deprivation Index Answer Date David rded National Score (1-100), lower number is lower ri sk 78 02/27/2023 State Score (1-10), lower number is lower risk 6 02/27/2023 Data from: https://www.neighborhoodatlas.medicine.[facility].edu/. Last address used for calculation [address] [place] [address] 02/27/2023 Comments No Sex and Gender Information [...] AM EDT Office Visit Breast Center [address] [place] [phone] Molly Kramer APRN.JOINTER MACHINE [address] [place] [address] LT BREAST PAIN WITH DISCOLORATION 05/16/2025 9:30 AM EDT Appointment Mammography [address] [address] BREAST PAIN WITH DISCOLORATION documented as of this encounter Visit Diagnoses Not on filedocumented in this encounter Care Teams Secondary Education Professor Relationship Specialty Start [place] [address] [place] [address] PCP - General Family Medicine 05/30/24 02/13/25 Nilo Prado MD [address] [place] [address] Referring Gastroenterology 08/17/23 [place] [address] [place] [address] Psych Social Worker Family Medicine 08/22/24 12/15/24 Lisha Worthington, CEDRIC.JOINTER MACHINE [address] [place] [address] Psych Social Worker Family Medicine 12/16/24 documented as of this encounter
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
--- OUTSIDE RECORDS SUMMARY | 2025-05-01 08:18 | XMS_ITS | Encounter Summary ---
Author Organization [facility] Address [address] [place] [address] Care Team Providers Care Specialty Transformer Assembler Name Role Phone Nilo Prado MD Unavailable Tevin Villafana DO Primary Care Provider [phone] Natacha Schroeder DO Unavailable Lisha Worthington SUPERVISOR OVENS.CHEMICAL ENGINEER Unavailable Source Comments In the event this information is protected by the Federal Confidentiality of Alcohol and Drug AbusePatient Records regulations: The Federal rules restrict any use of the information to criminally investigate or prosecute any alcohol or drug abuse patient.[facility] Reason for Referral * Diagnostic Procedure Only (Routine) - Closed Specialty Diagnoses / Procedures Referred By Simona bailey Referred To Contact [facility] Diagnoses Abnormal mammogram of left breast Procedures US BIOPSY BREAST LEFT BX BREAST W/DEVICE 1ST LESION ULTRASOUND Mary Lou Allen MD [address] [address] Phone: tel: fax: [facility] [address] [place] [phone] Referral ID Status Reason Start Date Expiration Date V isits Requested Visits Authorized [id number] Closed Auto-Generate d Referral 07/05/2024 08/04/2025 1 1 Encounter Details Date Type Department Care Team (Late st Contact Info) Description 07/05/2024 Radiology Mammography [address] [place] [address] Mary Lou Cote MD [address] [place] [address] Social History Tobacco Use Types Packs/Day Years Used Date Smoking Tobacco: Every Day Cigarettes 1 24 Smokeless Tobacco: Never Alcohol Use Standard Drinks/Week Comments Yes 0 (1 standard drink = 0.6 oz pur e alcohol) 13 days sober- 07/04/2024 [facility] Utilities Answer Date Recorded In [...] often do you attend chur ch or zoroastrian services? Never 03/02/2024 Do you belong to any clubs o r organizations such as bahai groups, unions, fraternal or athletic groups, or [...] Answer Date Recorded PHQ-2 score 2 07/01/2024 [facility] [place] of Occupat ional Health - Occupational Stress [...] place to sleep or slept in a residential (including now)? No 03/02/2024 Area Deprivation Index Answer Date David rded National Score (1-100), lower number is lower ri sk 78 02/27/2023 State Score (1-10), lower number is lower risk 6 02/27/2023 Data from: https://www.neighborhoodatlas.medicine.[facility].edu/. Last address used for calculation [address] 02/27/2023 Comments No Sex and Gender [...] AM EDT Office Visit Breast Center [address] [phone] Molly Kramer APRN.CHEMICAL ENGINEER [address] [place] [address] LT BREAST PAIN WITH DISCOLORATION 05/16/2025 9:30 AM EDT Appointment Mammography [address] [id number] LT BREAST PAIN WITH DISCOLORATION documented as of this encounter Results * US BIOPSY BREAST LEFT (07/11/2024 9:15 AM EDT) Anatomical Region Laterality Modality Breast Left Other 07/11/2024 9:15 AM EDT Addenda Addendum by Provider, f Imaging [place] on 07/13/2024 4:01 PM EDT * * *Final Report* * * * * * SEE BOTTOM OF REPORT FOR ADDENDED TEXT * * * DATE OF EXAM: Jul 11 2024 9:15AM SSW [id number] - LINDA US BIOPSY BREAST LT / PROCEDURE REASON: Abnormal mammogram of left breast * * * * Physician Interpretation * * * * RESULT: On license of [facility] [address] [place] [address] - - - - - - - [...] Alexandra Son M.D. Electronically signed on: 07/11/2024 Supervisor Phosphoric Acid: SERGIO Transcrialfonzo Date/Time: Jul 11 2024 8:52A Dictated by: ALEXANDRA SON MD This examination was interpreted and the report reviewed and electronically signed by: ALEXANDRA SON MD on Jul 11 2024 9:45AM EST This document has been addended by: ALEXANDRA SON MD on Jul 13 2024 3:56PM EST Mary Lou Cote MD [facility] Edited Result - Final documented in this encounter Visit Diagnoses Diagnosis Abnormal mammogram of left breast- Primary Abnormal mammogram of left breast documented in this encounter Care Teams Specialty Transformer Assembler Relationship Specialty [place] [address] [place] [address] PCP - General Family Medicine 05/30/24 02/13/25 Nilo Prado MD [address] [place] [address] Referring Gastroenterology 08/17/23 [place] [address] [place] [address] Clinical Resource Manager Family Medicine 08/22/24 12/15/24 Lisha Worthington APRN.CNP [address] [place] [address] Clinical Resource Manager Family Medicine 12/16/24 documented as of this encounter
--- OUTSIDE RECORDS SUMMARY | 2025-05-01 08:18 | XMS_ITS | Encounter Summary ---
Author Organization [facility] Address [facility] [place] [address] Care Team Providers Care Load Tester Name Role Phone Nilo Prado MD Unavailable Elia Min DO Primary Care Provider [phone] Tevin Villafana DO Primary Care Provider [phone] Natacha Schroeder DO Unavailable Lisha Worthington ASBESTOS BRAKE LINING FINISHER.WHEEL WORKER Unavailable Source Comments In the event this information is protected by the Federal Confidentiality of Alcohol and Drug AbusePatient Records regulations: The Federal rules restrict any use of the information to criminally investigate or prosecute any alcohol or drug abuse patient.[facility] Encounter Details Date Type Department Care Team (Late st Contact Info) Description 10/14/2023 Patient Msg [facility] [address] [place], [place] [phone] Provider, [facility] Social History Tobacco Use [...] How often do you attend chur or evangelical services? Never 07/03/2022 Do you belong to any clubs o r organizations such as synagogue groups, unions, fraternal or athletic groups, or [...] Answer Date Recorded PHQ-2 score 1 02/20/2023 [facility] - Occupational Stress Questionnaire Answer Date [...] place to sleep or slept in a [place] health care facility (including now)? No 07/03/2022 Area Deprivation Index Answer Date David rded National Score (1-100), lower number is lower ri sk 78 02/27/2023 State Score (1-10), lower number is lower risk 6 02/27/2023 Data from: https://www.neighborhoodatlas.medicine.[facility]/. Last address used for calculation [address] [place] [address] 02/27/2023 Comments Unknown Sex and Gender Information [...] AM EDT Office Visit Breast Center [address] [place] [address] Molly Kramer APRN.WHEEL WORKER [address] [phone] LT BREAST PAIN WITH DISCOLORATION 05/16/2025 9:30 AM EDT Appointment Mammography [address] [place] [address] LT BREAST PAIN WITH DISCOLORATION documented as of this encounter Visit Diagnoses Not on filedocumented in this encounter Care Teams Load Tester Relationship Specialty Start Date End Date Elia Min DO [address] [place] [address] PCP - General Family Medicine 01/04/24 05/29/24 [place] [address] [place] [address] PCP - General Family Medicine 05/30/24 02/13/25 Nilo Prado MD [address] [place] [address] Referring Gastroenterology 08/17/23 [place] [address] [place] [address] [facility] 08/22/24 12/15/24 Lisha Worthington APRN.IRENE [address] [place] [address] [facility] 12/16/24 documented as of this encounter
--- OUTSIDE RECORDS SUMMARY | 2025-05-01 08:19 | XMS_ITS | Encounter Summary ---
[facility] Address [address] [facility], [address] [place] [address] Care Team Providers Care Network Admin Name Role Phone Jennie Durand DO Primary Care Provider [phone] Reason for Visit * Reason Comments Medication Refill Encounter Details Date Type Department Care Team (Late st Contact Info) Description 09/05/2020 Refill [facility] Part of [address] [place] [address] Koki Chan, ARMATURE COIL WINDER - SYSTEMS ADMINISTRATOR Medication Refill Social History Tobacco Use Types [...] documented as of this encounter Care Teams Network Admin Relationship Specialty Start Date End Date Jennie Durand DO [address] [place] [address] PCP - General Family Medicine 11/19/22 documented as of this encounter
--- OUTSIDE RECORDS SUMMARY | 2025-05-01 08:19 | XMS_ITS | Encounter Summary ---
Author Organization [facility] Address [address] [place] [address] Phone Care Team Providers Care Vendette Name Role Phone Generic Provider, No Assigned Pcp MD Primary Car e Provider Unavailable Encounter Details Date Type Department Care Team (Late st Contact Info) Description 12/31/2023 Scanned Document [facility] [address] [place] [id number] Scanning, Generic Provider Social History Tobacco Use [...] on filedocumented in this encounter Care Teams Vendette Relationship Specialty Start Date End Date Generic Provider, [place] [address] PCP - General Sweeper Operator Highways 11/03/24 documented as of this encounter
--- OUTSIDE RECORDS SUMMARY | 2025-05-01 08:19 | XMS_ITS | Encounter Summary ---
Author Organization [facility] Address [address] [place] [address] Phone Care Team Providers Care Gallery Host Name Role Phone Generic Provider, No Assigned Pcp Primary Car e Provider Unavailable Encounter Details Date Type Department Care Team (Late st Contact Info) Description 12/12/2024 Scanned Document [facility] [address] [place] [id number] Scanning, Generic Provider Social History Tobacco Use [...] on filedocumented in this encounter Care Teams Gallery Host Relationship Specialty Start Date End Date Generic Provider, No Assigned Pcp, [place] [address] PCP - General Smasher 11/03/24 documented as of this encounter
--- OUTSIDE RECORDS SUMMARY | 2025-05-01 08:19 | XMS_ITS | Encounter Summary ---
Author Organization [facility] Address [id number] [address] [place] [address] Care Team Providers Care Data Entry Supervisor Name Role Phone [facility] Primary Care Pr ovider Reason for Visit * Reason Onset Date Comments GENETICS 02/07/2022 CLERICAL Encounter Details Date Type Department Care Team (Late st Contact Info) Description 02/07/2022 Telephone [facility] - Medical Oncology [address] [place] [phone] Edith Louise, [facility] [address] [facility] [address] [place] [address] GENETICS (CLERICAL) Social History Tobacco [...] IT WAS NEG. [facility] AND CALL BACK TO SCHEDULE. S[place] documented in this encounter Plan of Treatment Not on file documented as of this encounter Visit Diagnoses Not on filedocumented in this encounter Additional Health Concerns Assessment Noted Time PHQ-9 Depression Total Score: 0 07/24/20 20 3:08 PM EST documented as of this encounter Care Teams Data Entry Supervisor Relationship Specialty Start Date End Date [facility], [place] [address] PCP - General 07/10/21 documented as of this encounter
--- OUTSIDE RECORDS SUMMARY | 2025-05-01 08:19 | XMS_ITS | Encounter Summary ---
Author Organization [facility] Address [facility] [place] [address] Care Team Providers Care Wharf Tender Head Name Role Phone Nilo Prado MD Unavailable Elia Min DO Primary Care Provider [phone] Tevin Villafana DO Primary Care Provider Natacha Schroeder DO Unavailable Lisha Worthington FOUNDATION DIRECTOR.AERIAL PLANTING AND CULTIVATION MANAGER Unavailable Source Comments In the event this information is protected by the Federal Confidentiality of Alcohol and Drug AbusePatient Records regulations: The Federal rules restrict any use of the information to criminally investigate or prosecute any alcohol or drug abuse patient.[facility] Encounter Details Date Type Department Care Team (Late st Contact Info) Description 06/10/2023 Patient Msg Neurology [address] [place] [address] Margo Manzano MD [address] [place] [address] Request an Appointment Social History [...] often do you attend chur ch or uatsdin services? Never 07/03/2022 Do you belong to any clubs o r organizations such as episcopalian groups, unions, fraternal [...] Date Recorded PHQ-2 score 1 02/20/2023 [facility] of Occupat ional Health - Occupational Stress [...] slept in a mcc (including now)? No 07/03/2022 Area Deprivation Index Answer Date David rded National Score (1-100), lower number is lower ri sk 78 02/27/2023 State Score (1-10), lower number is lower risk 6 02/27/2023 Data from: https://www.neighborhoodatlas.medicine.[facility].edu/. Last address used for calculation [address] [place] [address] 02/27/2023 Comments Unknown Sex and Gender Information [...] AM EDT Office Visit Breast Center [address] [phone] Molly Kramer APRN.AERIAL PLANTING AND CULTIVATION MANAGER [address] [place] [address] LT BREAST PAIN WITH DISCOLORATION 05/16/2025 9:30 AM EDT Appointment Mammography [address] [phone] BREAST PAIN WITH DISCOLORATION documented as of this encounter Visit Diagnoses Not on filedocumented in this encounter Care Teams Wharf Tender Head Relationship Specialty Start Date End Date Elia Min DO [address] [place] [address] PCP - General Family Medicine 01/04/24 05/29/24 [place] [address] [place] [address] PCP - General Family Medicine 05/30/24 02/13/25 Nilo Prado MD [address] [place] [address] Referring Gastroenterology 08/17/23 [place] [address] [place] [address] Cabin Agent Family Medicine 08/22/24 12/15/24 Lisha Worthington APRN.IRENE [address] [place] [address] Cabin Agent Family Medicine 12/16/24 documented as of this encounter
--- OUTSIDE RECORDS SUMMARY | 2025-05-01 08:19 | XMS_ITS | Clinical Summary ---
Author Organization [facility] Address [address] [place] [address] Care Team Providers Care Sous Chef Name Role Phone Nilo Prado MD Unavailable Lisha Worthington FOLLOW UP CLERK.THREAD WINDER Unavailable Allergies Active Allergy Reactions Criticality Noted Date Comments Aripiprazole Mental Status Change ,Other: See Comments,Unknown 08/19/2022 Bupropion Unknown 07/16/2021 Coconut Swelling Low 11/20/2022 Medications injkhstmesri-vqk-l bria-FA-vit K (BARIATRIC MULTIVITAMINS) 45 mg iron- [...] Care Team Description 02/11/2025 Refill Family Medicine [address] [place] [address] Tevin Villafana DO Refill Request [...] pur e alcohol) 13 days sober- 07/04/2024 [facility] Utilities Answer Date Recorded In the past 12 months has [employer], gas, oil, or water [employer] threatened to shut off services in your home? No 03/02/2024 Social Connection and Isolation Panel Answer Date Recorded In a typical week, how many times do you talk on the phone with family, friends, or neighbors? More than three times a week 03/02/2024 How often do you get togethe r with friends or relatives? Never 03/02/2024 How often do you attend chur or shinto services? Never 03/02/2024 Do you belong to any clubs o r organizations such as samaritan groups, unions, fraternal or athletic groups, or [...] Answer Date Recorded PHQ-2 score 2 07/01/2024 [facility] of Occupat ional Health - Occupational [...] risk 6 02/27/2023 Data from: https://www.neighborhoodatlas.medicine.[facility]/. Last address used for calculation [address] 02/27/2023 Comments No Sex and Gender Information [...] AM EDT Office Visit Breast Center [address] [place] [address] Molly Kramer, CEDRIC.THREAD WINDER [address] [place], [place] [phone] LT BREAST PAIN WITH DISCOLORATION 05/16/2025 9:30 AM EDT Appointment Mammography [address] [place] [address] LT BREAST PAIN WITH DISCOLORATION Health Maintenance Due Date Last Done Comments Hepatitis B Vaccine (2 of 3 - 3-dose series) 12/10/2000 11/12/2000 DTaP,Tdap,Td Vaccine (1 - Tdap) 12/18/2007 Pneumococcal Vaccine (1 of 2 - PCV) 12/18/2007 Cervical Cancer Screening 2009 HPV Vaccine (1 - 3-dose SCDM series) 12/18/2015 Medicare Advantage Annual We llness Visit 09/14/2024 Influenza Vaccine (#1) 2025 0, 07/09/2020, 07/09/2020 HIV Screening Completed 02/25/2024 Hepatitis C Screening Completed 02/25/2024 Medical Devices Implanted Type Area Darkroom Worker Device Identifier Shelf Expiration Date Model / Serial / Lot Breast Us Core Bx Clip Implanted:Qty: 1 on 07/11/2024 by Michelle Son MD at [facility] Left: Breast BARD PERIPHERAL VASCULAR 12/09/2026 / / [id number] Description:Ribbon clip Procedures Procedure Name Priority Date/Time [...] (Ag/Ab) Nonreactive Nonreactive 02/25/2024 5:32 PM EDT [facility] HIV-1/2 AB (Confirmatory) 02/25/2024 5:32 PM EDT [facility] Comment:Test not indicated. HIV Interpretation 02/25/2024 5:32 PM EDT [facility] Comment: No evidence of HIV-1 or HIV-2 infection. Should recent infection be suspected, repeat testing may be considered 2-3 weeks after this draw. [place] Rev. Code 3701.243(E): This information has been [...] lt Performing Organization Address [facility]/ZIP Co de Phone Number [facility] [address] [place] [address], * HEPATITIS C ANTIBODY IA WITH CONFIRMATION (02/25/2024 7:51 AM EDT) Hep C Antibody IA Negative Negative 02/25/2024 6:42 PM EDT [facility] Comment:The result suggests no evidence of active infection with Hepatitis C virus. Should recent infection be suspected, repeat testing may be considered 4-6 weeks after this draw. Blood BLOOD SPECIMEN / Unknown Venipuncture / Unknown 02/25/2024 7:51 AM EDT 02/25/2024 7:51 AM EDT Elia Min DO LABORATORY Final Resu lt Performing Organization Address [facility] Co de Phone Number [facility] [address] [place], [place] [phone], from Last 3 Months or Most Recently Relevant to Health Maintenance Insurance [place]ICAID [place] [employer] MEDICARE ADVANTAGE HMO Care Teams Sous Chef Relationship Specialty Start Date End Date Nilo Prado MD [address] [place] [address] Referring Gastroenterology 08/17/23 Lisha Worthington APRN.CNP [address] [place] [address] Snuff Blender Family Medicine 12/16/24
--- OUTSIDE RECORDS SUMMARY | 2025-05-01 08:19 | XMS_ITS | Encounter Summary ---
Author Organization [facility] Address [address] [place] [address] Care Team Providers Care Digital Publishing Specialist Name Role Phone Nilo Prado MD Unavailable Elia Min DO Primary Care Provider [phone] Tevin Villfaana DO Primary Care Provider [phone] Natacha Schroeder DO Unavailable Lisha Worthington SAND MILLER.MANAGER REGISTRATION Unavailable Source Comments In the event this information is protected by the Federal Confidentiality of Alcohol and Drug AbusePatient Records regulations: The Federal rules restrict any use of the information to criminally investigate or prosecute any alcohol or drug abuse patient.[facility] Encounter Details Date Type Department Care Team (Late st Contact Info) Description 01/06/2023 Get Medical Advice Neurology [address] [place], [place] [phone] Margo Manzano MD [address] [place] [address] Iih Social History Tobacco Use [...] often do you attend chur ch or anabaptist services? Never 07/03/2022 Do you belong to any clubs o r organizations such as jewish groups, unions, fraternal or athletic groups, or [...] care, and heating? Not very hard 07/03/2022 [facility] of Occupat ional Health - Occupational Stress [...] N ot on file 09/29/2022 Data from: https://www.neighborhoodatlas.medicine.[facility].edu/. Last address used for calculation [address] [facility] 09/29/2022 Comments Unknown Sex and Gender Information Value Date Recorded Sex Assigned at Female 02/06/2022 6:05 PM EDT Legal Sex Female 10:01 AM EST Gender Identity Female 01/13/2022 11:52 AM EDT Sexual Orientation Straight 02/06/2022 6: 05 PM EDT documented as of this encounter Miscellaneous Notes * Telephone Encounter - Consuelo Fregoso RN - 01/06/2023 12:57 PM EDT Local [employer] message forwarded to provider. documented in this encounter Plan of Treatment Upcoming Encounters Date Type Department Care Team (Latest Contact Info) Description 05/16/2025 9:00 AM EDT Office Visit [facility] [address] [place] [address] Molly Kramer APRN.[facility] [address] [place], [place] [phone] LT BREAST PAIN WITH DISCOLORATION 05/16/2025 9:30 AM EDT Appointment Mammography [address] [address] LT BREAST PAIN WITH DISCOLORATION documented as of this encounter Visit Diagnoses Not on filedocumented in this encounter Care Teams Digital Publishing Specialist Relationship Specialty Start Date End Date Elia Min DO [address] [place] [address] PCP - General Family Medicine 01/04/24 05/29/24 [place] [address] [place] [address] PCP - General Family Medicine 05/30/24 02/13/25 Nilo Prado MD [address] [place] [address] Referring Gastroenterology 08/17/23 [place] [address] [place] [address] Telephone Diaphragm Assembler Family Medicine 08/22/24 12/15/24 Lisha Worthington APRN.CNP [address] [place] [address] Telephone Diaphragm Assembler Family Medicine 12/16/24 documented as of this encounter
--- OUTSIDE RECORDS SUMMARY | 2025-05-01 08:19 | XMS_ITS | Encounter Summary ---
Author Organization [facility] Address [address] [place] [address] Phone Care Team Providers Care Lead Operator Name Role Phone Generic Provider, No Assigned Pcp MD Primary Car e Provider Unavailable Encounter Details Date Type Department Care Team (Late st Contact Info) Description 07/03/2023 Scanned Document [facility] [address] [place] [phone] Scanning, Generic Provider Social History Tobacco Use [...] on filedocumented in this encounter Care Teams Lead Operator Relationship Specialty Start Date End Date Generic Provider, No [place] [address] PCP - General Graduate Studies Dean 11/03/24 documented as of this encounter
--- OUTSIDE RECORDS SUMMARY | 2025-05-01 08:19 | XMS_ITS | Encounter Summary ---
Author Organization [facility] Address [address] [place] [address] Phone Care Team Providers Care Manager Administrative Name Role Phone Generic Provider, No Assigned Pcp Primary Car e Provider Unavailable Encounter Details Date Type Department Care Team (Late st Contact Info) Description 02/09/2025 Scanned Document [facility] [address] [place] [phone] Scanning, Generic Provider Social History Tobacco Use [...] on filedocumented in this encounter Care Teams Manager Administrative Relationship Specialty Start Date End Date Generic Provider, No Assigned PcpMD NONE [facility] [place] [address] PCP - General Gathering Worker 11/03/24 documented as of this encounter
--- OUTSIDE RECORDS SUMMARY | 2025-05-01 08:19 | XMS_ITS | Encounter Summary ---
Author Organization [facility] Address [address] [place] [address] Care Team Providers Care Oil Dispenser Name Role Phone Yolande Page CERTIFIED CORPORATE TRAVEL EXECUTIVE Unavailable Pop Larsen DO Unavailable [phone] Unallocated, Noms Provider Primary Care Provi andres Encounter Details Date Type Department Care Team ([facility] Contact Info) Description 09/22/2024 Orders Only [facility] [address] [place] [phone] Pop Larsen DO [address] [place] [address] Social History Tobacco Use Types Packs/Day [...] Upcoming Encounters Date Type Department Care Team ([facility] Contact Info) Description 05/01/2025 2:15 PM EDT Office Visit [facility] [address] [facility] [address] [place] [address] Shaji Francis DO [address] [facility] [address] [place] [address] documented as of this encounter Procedures Procedure [...] on filedocumented in this encounter Care Teams Oil Dispenser Relationship Specialty Start Date End Date Unallocated, [place], [address] [place] [address] PCP - General Family Medicine 04/13/25 Yolande Page CERTIFIED CORPORATE TRAVEL EXECUTIVE [facility] [place] [phone] 09/21/24 Pop Larsen DO [facility] Family Medicine [facility] [place] [address] Referring Physician Neurology 09/27/24 documented as of this encounter
--- OUTSIDE RECORDS SUMMARY | 2025-05-01 08:19 | XMS_ITS | Encounter Summary ---
Author Organization [facility] Address [address] [place] [address] Phone Care Team Providers Care Working Manager Name Role Phone Generic Provider, No Assigned Pcp MD Primary Car e Provider Unavailable Encounter Details Date Type Department Care Team (Late st Contact Info) Description 09/15/2024 Scanned Document [facility] [address] [place] [phone] Scanning, Generic Provider Social History Tobacco Use [...] on filedocumented in this encounter Care Teams Working Manager Relationship Specialty Start Date End Date Generic Provider, [place] [address] PCP - General Director Telemetry 11/03/24 documented as of this encounter
--- OUTSIDE RECORDS SUMMARY | 2025-05-01 08:19 | XMS_ITS | Encounter Summary ---
Author Organization [facility] Address [address] [facility] [place] [address] Care Team Providers Care Emergency Care Attendant Name Role Phone Jennie Durand DO Primary Care Provider [phone] Reason for Referral * Imaging (Routine) - Closed Specialty Diagnoses / Procedures Referred By Contac t Referred To Contact Radiology Diagnoses Gastroesophageal reflux disease with esophagitis, unspecified whether hemorrhage Procedures FL UGI W KUB Johnny Vickers DO Phone: tel: fax: Referral ID Status Reason Start Date Expiration Date Visits Re quested Visits Authorized [id number] Closed 10/24/2020 10/24/2021 1 1 Encounter Details Date Type Department Care Team (Latest Contact Info) Description 10/24/2020 Transcribe Orders [facility] [address] [place] [address] Johnny Vickers DO [address] [place] [address] Gastroesophageal reflux disease with esophagitis, unspecified whether [...] documented as of this encounter Care Teams Emergency Care Attendant Relationship Specialty Start Date End Date Jennie Durand DO [address] [place] [phone] PCP - General Family Medicine 11/19/22 documented as of this encounter
--- OUTSIDE RECORDS SUMMARY | 2025-05-01 08:19 | XMS_ITS | Encounter Summary ---
Author Organization [employer] [facility] Address [id number] [address] [place] [address] Care Team Providers Care Senior Tax Manager Name Role Phone [facility] Primary Care Pr ovider Encounter Details Date Type Department Care Team (Late st Contact Info) Description 07/18/2021 Orders Only [facility] [employer] [facility] [place] [address] Transcribe, Orders Support User Pain [...] documented as of this encounter Care Teams Senior Tax Manager Relationship Specialty Start Date End Date [facility], [place] [address] PCP - General 07/10/21 documented as of this encounter
--- OUTSIDE RECORDS SUMMARY | 2025-05-01 08:19 | XMS_ITS | Encounter Summary ---
Author Organization [facility] Address [address] [place] [address] Phone Care Team Providers Care Claim Processing Specialist Name Role Phone Generic Provider, No Assigned Pcp Primary Car e Provider Unavailable Encounter Details Date Type Department Care Team (Late st Contact Info) Description 12/10/[address] [facility] [address] [place] [phone] Scanning, Generic Provider Social History Tobacco Use [...] on filedocumented in this encounter Care Teams Claim Processing Specialist Relationship Specialty Start Date End Date Generic Provider, No Assigned PcpMD NONE [facility] [place] [address] PCP - General Space And Missile Defense Operations 11/03/24 documented as of this encounter
--- OUTSIDE RECORDS SUMMARY | 2025-05-01 08:19 | XMS_ITS | Clinical Summary ---
Author Organization [facility] Address [address] [place] [address] Care Team Providers Care Assistant Professor Of Chemistry Name Role Phone Camilo Yolande Lehman CABLE SPLICER APPRENTICE Unavailable [phone] Pop Larsen DO Unavailable [phone] Unallocated, Noms Provider MD Primary Care Provi andres Allergies Active Allergy Reactions Criticality Noted Date Comments Aripiprazole 01/31/2024 Buspirone Palpitations Low 09/21/2024 Coconut (Cocos Nucifera) 01/31/2024 Medications ziprasidone (Geodon) 20 MG capsule Take 20 mg by mouth in the morning and 20 mg in the evening. Take with meals. Active ondansetron (Zofran) 4 MG tablet Take by mouth Active DULoxetine (Cymbalta) [address] capsule [...] mg by mouth at bedtime Active Multiple Vitamins-Minera ls (multivitamin with minerals) tablet Take 1 tablet [...] the evening and 1 capsule before bedtime. 5 Active NIFEdipine CC (Adalat CC) 30 MG 24 hr tablet Take 30 mg by mouth Daily Active Vraylar 1.5 MG capsule Take 1 capsule by mouth Daily Active chlordiazePOXID E (Librium) 25 MG capsule Take 25 mg by mouth 3 (three) times a day as needed for anxiety Active methylPREDNISol one (Medrol) 4 MG tablet Take 4 mg by mouth Daily Therapy Pack as directed 04/13/20 Discontinue d(Therapy completed) Brexpiprazole 4 MG tablet Take 4 mg by mouth in the morning. 04/09/20 Discontinue d(Therapy completed) acetaZOLAMIDE (Diamox) 250 MG tablet Take 250 mg by mouth in the morning and 250 mg before bedtime. 04/09/20 Discontinue d(Therapy completed) amoxicillin-cla vulanate (Augmentin) 875-125 MG tabletIndicatio ns:Pharyngitis, unspecified etiology,Acute pharyngitis, unspecified etiology Take 1 tablet (875 mg) by mouth in the morning and 1 tablet (875 mg) before bedtime. Do all this for 10 days. 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 added per OP [...] a recent relapse with alcohol over the Sabina holidays but is 17 days sober again [...] management of mother, antepartum condition or complication ([facility]) 07/03/2008 Acute pharyngitis 12/01/2002 Streptococcal sore throat 12/01/2002 Abdominal pain 06/13/2002 Acute suppurative otitis med ia without spontaneous rupture of ear drum 06/13/2002 Educational circumstance 06/13/2002 Lumbago 06/13/2002 Sprain of ankle 12/06/2001 Encounters Date Type Department Care Team Description 04/13/2025 10:00 AM EDT Consult [facility] [address] [place] [id number] Shaji Francis DO Pseudoangiomatous stromal hyperplasia of breast (Primary Dx); Hypertrophy of breast 04/13/2025 Travel 04/11/2025 Travel 04/09/2025 10:45 AM EDT Office Visit [facility] [address] [place] [address] Shazia Elise, LEONOR Acute pharyngitis, unspecified etiology (Primary Dx); Pharyngitis, unspecified etiology 04/09/2025 Travel from Last 3 Months Family History Medical History Relation Name Comments ALS Father Diabetes Mother Hyperlipidemia Mother Hypertension Mother Ovarian cancer Mother Pancreatic cancer Mother Stroke Mother Breast cancer Neg Hx Colon cancer Neg Hx Relation Name Status Comments Brother 2 brothers Father Mother Sibling Alive Sister 0 sisters Social History Tobacco Use Types Packs/Day Years Used Date Smoking Tobacco: Every Day Cigarettes 1.5 25 Smokeless Tobacco: Never Tobacco Cessation:Ready to Q [...] Sign Reading Time Taken Comments Blood Pressure 118/84 04/13/2025 9:41 AM EDT Pulse 95 04/09/2025 10:45 AM EDT Temperature 35.6 C (96.1 F) 04/09/2025 10:45 AM EDT Respiratory Rate - - Oxygen Saturation 98% 04/09/2025 10:45 AM EDT Inhaled Oxygen Concentration - - Weight 88.5 kg (195 lb) 04/13/2025 9:41 AM EDT Height 170.2 cm (5' 7 ) 04/13/2025 9:41 AM EDT Body Mass Index 30.54 04/13/2025 9:41 AM EDT Plan of Treatment Upcoming Encounters Date Type Department Care Team (Late st Contact Info) Description 05/01/2025 2:15 PM EDT Office Visit [facility] [address] [address] Shaji Francis, [address] [facility] [address] [place] [address] Health Maintenance Due Date Last Done Comments Medicare Annual Wellness (AWV) 1990 Influenza Vaccine (#1) 2025 07/23/2020, 2019 Procedures Procedure Name Priority Date/Time Associated Diagnosis Comments BI MAMMOGRAM DIAGNOSTIC TOMOSYNTHESIS LEFT Routine 04/26/2025 10:09 AM EDT Pseudoangiomatous stromal hyperplasia of breast Hypertrophy of breast STREP DNA PROBE Routine 04/09/2025 11:03 AM EDT Pharyngitis, unspecified etiology from Last 3 Months Results * Left diagnostic mammogram with tomosynthesis (04/26/2025 10:09 AM EDT) Anatomical Region Laterality Modality Breast Left Mammography 04/26/2025 10:0 9 AM EDT Impressions 04/26/2025 10:20 AM EDT NO MAMMOGRAPHIC EVIDENCE OF MALIGNANCY. SURGICAL MANAGEMENT OF BIOPSY-PROVEN/KNOWN PASH NO RETROAREOLAR ABNORMALITY TO CORRESPOND TO REPORTED NIPPLE INVERSION. CLINICAL CORRELATION RECOMMENDED. ROUTINE FOLLOW-UP IS RECOMMENDED IN ONE YEAR. RESULT CODE: 1 Negative DENSITY CODE: 3 (approximately 51-75% glandular) The breasts are heterogeneously dense, which may obscure small masses. FOLLOW UP: 1YR The false-negative rate of mammography is approximately 10-percent. Management of a palpable abnormality must be based on clinical grounds. Impression dictated by: Denny Escalante M.D. 04/26/2025 10:15 AM Dictation Location: [facility] Tech: Shazia Mullen; Elena Vaughn Transcribed By: MARKY 04/26/25 1015 Dictated By: Denny Escalante MD 04/26/25 1009 Signed By: <Electronically signed by Denny Escalante MD in OV> 04/26/25 1015 Narrative 04/26/2025 10:20 AM EDT [facility] [place] [address] Ultrasound Report Signed Patient: Shazia Chou MR#: [id number] : 1990 Acct:[id number] Age/Sex: 34 / F ADM Date: 04/26/25 Loc: [place] Room: Type: [facility] Attending Dr: Shaji Francis DO Ordering Provider: Shaji Francis DO Date of Service: 04/26/25 MM/MM diagnostic mammo LT w/CAD: follow up for Left breast Upper outer quadrant ([id number]) US/US breast LT limited: follow with mamm upper outer quadrant Copies to: Shaji Francis DO DIAGNOSTIC LEFT MAMMOGRAM - FULL FIELD DIGITAL WITH TOMOSYNTHESIS/targeted breast ultrasound CLINICAL DATA: PASH, pain Craniocaudal and mediolateral oblique views of the left breast were obtained using low-dose digital technique. Comparison is made to prior studies from outside facility 07/11/2024. This examination was reviewed with the aid of CAD. Heterogeneous dense breast tissue. There are no dominant masses, typically malignant calcifications or architectural distortion. Focal asymmetry 1:00 left breast with posterior depth with biopsy clip noted Targeted ultrasound left breast 1:00 demonstrates focal area of atypical echogenicity 15 cm nipple 2 x 3 x 1 cm in size in size. Biopsy clip is not identified on the ultrasound images. Additional imaging was obtained at the level nipple which demonstrates no focal abnormality. Imaging obtained at the site of pain 1:00 15 cm from nipple demonstrates no suspicious abnormality and corresponds to the site of previously biopsied abnormality.. US/US breast LT limited Procedure Note Radiology, Radiologist, - 04/26/2025 [facility] [place] [address] [place] [address] Ultrasound Report Signed Patient: Shazia Chou LMR#: [id number] : 1990Acct:[id number] Age/Sex: 34 / FADM Date: 04/26/25 Loc: [place] Room:Type: [facility] Attending Dr: Shaji Francis DO Ordering Provider: Shaji Francis DO Date of Service: 04/26/25 MM/MM diagnostic mammo LT w/CAD: follow up forLeft breast Upper outer quadrant ([id number]) US/US breast LT limited: follow with mamm upper outerquadrant Copies to: Shaji Francis DO DIAGNOSTIC LEFT MAMMOGRAM - FULL FIELD DIGITAL WITH TOMOSYNTHESIS/targetedbreast ultrasound CLINICAL DATA: PASH, pain Craniocaudal and mediolateral oblique views of the left breast wereobtained using low-dose digital technique. Comparison is made to prior studies from outside prvgfhda08/28/2024. This examination was reviewed with the aid of CAD. Heterogeneous dense breast tissue. There are no dominant masses, typicallymalignant calcifications or architectural distortion. Focal asymmetry 1:00 left breast withposterior depth with biopsy clip noted Targeted ultrasound left breast 1:00 demonstrates focal area of atypicalechogenicity 15 cm nipple 2 x 3 x 1 cm in size in size. Biopsy clip is not identified on theultrasound images. Additional imaging was obtained at the level nipple which demonstrates nofocal abnormality. Imaging obtained at the site of pain 1:00 15 cm from nipple demonstratesno suspicious abnormality and corresponds to the site of previously biopsied abnormality.. US/US breast LT limited IMPRESSION: NO MAMMOGRAPHIC EVIDENCE OF MALIGNANCY. SURGICAL MANAGEMENT OF BIOPSY-PROVEN/KNOWN PASH NO RETROAREOLAR ABNORMALITY TO CORRESPOND TO REPORTED NIPPLE INVERSION.CLINICAL CORRELATION RECOMMENDED. ROUTINE FOLLOW-UP IS RECOMMENDED IN ONE YEAR. RESULT CODE: 1 Negative DENSITY CODE: 3 (approximately 51-75% glandular) The breasts areheterogeneously dense, which may obscure small masses. FOLLOW UP: 1YR The false-negative rate of mammography is approximately 10-percent. Management of a palpable abnormality must be based on clinical grounds. Impression dictated by: Denny Escalante M.D. 04/26/2025 10:15 AM Dictation Location: [facility] Tech: Shazia Vaughn Transcribed By: [facility] 04/26/25 1015 Dictated By: Denny Escalante MD 04/26/25 1009 Signed By: <Electronically signed by Denny Escalante MD in OV> 04/26/25 1015 us Shaji Francis DO IMG BI PROCEDURES Final R esult * STREP DNA PROBE (04/09/2025 11:03 AM EDT) RESULT neg Negative Throat 04/09/2025 11:0 3 AM EDT Shazia Elise CABLE SPLICER APPRENTICE POINT OF CARE TEST ENTER/JEREMIAH T ORDERABLES Final Result from Last 3 Months Insurance MEDICAID [place] MEDICARE ADVANTAGE Care Teams Assistant Professor Of Chemistry Relationship Specialty Start Date End Date Unallocated, Noms Provider, [address] [place] [address] PCP - General Family Medicine 04/13/25 Yolande Page, CABLE SPLICER APPRENTICE [place] [address] [address] 09/21/24 Pop Larsen DO [address] [address] Referring Physician Neurology 09/27/24
--- OUTSIDE RECORDS SUMMARY | 2025-05-01 08:19 | XMS_ITS | Clinical Summary ---
Author Organization [email or web address] Address [id number] [address] [place] [address] Care Team Providers Care Fisher Trawl Line Name Role Phone [facility] Primary Care Pr ovider Allergies Active Allergy [...] 07/10/2021, 07/09/2020 Medical Devices Implanted Type Area Production Service Manager Device Identifier Shelf Expiration Date Model / Serial / Lot Anch Sut 4.75mm 2 [facility] - [id number] - [id number] Implanted:Qty: 1 on 07/27/2020 by Octavio Sims DPM at [facility] [place] Right Medial: Ankle [employer] 06/06/2023 [id number] / [id number] / [id number] Nl Im 52mm 5.5mm 4 Hl Hi Rt - [id number] - [id number] Implanted:Qty: 1 on 07/27/2020 by Octavio Sims DPM at [facility] Nail Right: Foot [employer] 07/27/2024 N13-S0-402 2 / [id number] / NA Pg Fx 3.5mm 18mm Thrd Phntm - [id number] - [id number] Implanted:Qty: 1 on 07/27/2020 by Octavio Sims DPM at [facility] Orthopedic Implant Right: Foot [employer] 07/27/2024 X46-[id number] 8 / [id number] / NA Pg Fx 3.5mm 16mm Thrd Phntm - [id number] - [id number] Implanted:Qty: 1 on 07/27/2020 by Octavio Sims DPM at [facility] Orthopedic Implant Right: Foot [employer] 07/27/2024 M52-K3-437 6 / [id number] / NA Pg Fx 3.5mm 12mm Antirotation - [id number] - [id number] Implanted:Qty: 1 on 07/27/2020 by Octavio Sims DPM at [facility] Orthopedic Implant Right: Foot [employer] 07/27/2024 M08-Q1-336 2 / [id number] / [id number] V92 Cellular Bone Matrix Implanted:Qty: 1 on 07/27/2020 by Octavio Sims DPM at [facility] Right Lateral: Ankle [employer] 08/07/2022 Y19-[id number] 00 / [id number] / [id number] Titan 3-D Wedge Implanted:Qty: 1 on 07/27/2020 by Octavio Sims DPM at [facility] Right Lateral: Ankle [employer] 03/13/2022 [id number] / [id number] / [id number] Insurance MEDICAID [place] HUMANA MEDICARE Care Teams Fisher Trawl Line Relationship Specialty Start Date End Date [facility], [address] [address] PCP - General 07/10/21
--- OUTSIDE RECORDS SUMMARY | 2025-05-01 08:19 | XMS_ITS | Encounter Summary ---
Author Organization [facility] Address [address] [place] [address] Care Team Providers Care Head Sulfide Operator Name Role Phone Nilo Prado MD Unavailable Elia Min DO Primary Care Provider [phone] Tevin Villafana DO Primary Care Provider [phone] Natacha Schroeder DO Unavailable Lisha Worthington TELEPHONE INSTALLER.FOREMAN/PILE DRIVING AND ERECTION Unavailable Source Comments In the event this information is protected by the Federal Confidentiality of Alcohol and Drug AbusePatient Records regulations: The Federal rules restrict any use of the information to criminally investigate or prosecute any alcohol or drug abuse patient.[facility] Encounter Details Date Type Department Care Team (Late st Contact Info) Description 06/30/2022 Get Medical Advice Plastic Surgery [address] [place], [place] [id number] [place] [address] [place] [address] breast reduction Social History Tobacco Use Types [...] often do you attend chur ch or adventism services? Never 07/03/2022 Do you belong to any clubs o r organizations such as yazidi groups, unions, fraternal or athletic groups, or [...] care, and heating? Not very hard 07/03/2022 [facility] - Occupational [...] place to sleep or slept in a usp (including now)? No 07/03/2022 Area Deprivation Index Answer Date David rded National Score (1-100), lower number is lower ri sk 73 02/12/2022 State Score (1-10), lower number is lower risk N ot on file 02/12/2022 Data from: https://www.neighborhoodatlas.medicine.[facility].edu/. Last address used for calculation [address] 02/12/2022 Comments Unknown Sex and Gender Information Value Date Recorded Sex Assigned at Female 02/06/2022 6:05 PM EDT Legal Sex Female 10:01 AM EST Gender Identity Female 01/13/2022 11:52 AM EDT Sexual Orientation Straight 02/06/2022 6: 05 PM EDT documented as of this encounter Functional Status * AUDIT-C Score Answer Date of Assessment Author 11 [...] AM EDT Office Visit [facility] [address] [address] Molly Kramer APRN.FOREMAN/PILE DRIVING AND ERECTION [address] [place] [address] LT BREAST PAIN WITH DISCOLORATION 05/16/2025 9:30 AM EDT Appointment Mammography [address] [address] LT BREAST PAIN WITH DISCOLORATION documented as of this encounter Visit Diagnoses Not on filedocumented in this encounter Care Teams Head Sulfide Operator Relationship Specialty Start Date End Date Elia Min DO [address] [place] [address] PCP - General Family Medicine 01/04/24 05/29/24 [place] [address] [place] [address] PCP - General Family Medicine 05/30/24 02/13/25 Nilo Prado MD [address] [address] Referring Gastroenterology 08/17/23 [place] [address] [place] [address] Counter Waitress/Waiter Family Medicine 08/22/24 12/15/24 Lihsa Worthington APRN.FOREMAN/PILE DRIVING AND ERECTION [address] [place] [address] Counter Waitress/Waiter Family Medicine 12/16/24 documented as of this encounter
--- OUTSIDE RECORDS SUMMARY | 2025-05-01 08:19 | XMS_ITS | Clinical Summary ---
Author Organization [facility] Address [address] [place] [address] Phone Care Team Providers Care Business Systems Advisor Name Role Phone Generic Provider, No Assigned Pcp MD Primary Car e Provider Unavailable Allergies Active Allergy Reactions Criticality Noted Date Comments Aripiprazole Other 02/24/2023 Bupropion Other 07/16/2021 Coconut Swelling Low 07/24/2020 Coconut Flavor Anaphylaxis High 05/09/2020 coconut Coconut Oil, Hydrogenated Itching Medium 07/18/2020 Medications DULoxetine (Cymbalta) [address] capsule Take 90 mg by mouth. 02/29/2020 Active multivitamin-mi e-lbih-VN-vit K (Bariatric Multivitamins) 45 mg iron- 800 [...] management of mother, antepartum condition or complication ([facility]) 07/03/2008 Acute pharyngitis 12/01/2002 Streptococcal sore throat 12/01/2002 Abdominal pain 06/13/2002 Acute suppurative otitis med ia without spontaneous rupture of ear drum 06/13/2002 Lumbago 06/13/2002 Sprain of ankle 12/06/2001 Encounters Date Type Department Care Team Description 02/09/2025 Scanned Document [facility] [address] [place] [address] Scanning, Generic Provider from Last 3 Months Immunizations Immunization Administration [...] Date/Time Associated Diagnosis Comments ECHOCARDIOGRAM 02/09/2025 CONVERTED GREY ROLL MAN CYTOLOGY Routine 3 12:00 AM EDT from Last 3 Months or Most Recently Relevant to Health Maintenance Results * Echocardiogram (02/09/2025) Narrative 02/09/2025 Ordered by an unspecified provider. us Generic Provider Scanning CV ECHO PROCEDURES Fin al Result * CONVERTED GREY ROLL MAN CYTOLOGY (06/10/2013 12:00 AM EDT) Pathology Report [...] MAEGAN ARIAS 06/15/13 Electronically Signed Out By [facility], Cytology/ By the signature on this report, [...] - PREVIOUS CASES [id number] [id number] [id number] [id number] [id number] [id number] -[id number] - HISTORY & COMMENTS Previous Abnormal PAP and/or Biopsy LSIL Source of Specimen A: Unknown Part Type [facility] Department of Pathology [address] [place] [address] [facility] CONVERTED FINAL DIAGNOSIS Satisfactory for evaluation. [...] findings. - Signed by: MAEGAN ARIAS 06/15/13 [facility] CONVERTED CLINICAL DIAGNOSIS-HIST ORY - PREVIOUS CASES [id number] [id number] [id number] [id number] [id number] [id number] -08 - HISTORY & COMMENTS Previous Abnormal PAP and/or Biopsy LSIL [facility] CONVERTED SLIDE-BLOCK DESCRIPTION - TISSUES - 1. CERVICAL/VAGINAL THIN PREP - [facility] CONVERTED REPORT COMMENTS [facility] Case # [id number] DOS: 06/10/13 - ORD PHYSICIAN: Clinton Hernandez MD - ORD PROCEDURES - CYTO PAP TLP MAN SCR /1 CYTO PAP INTERP / - COPIES TO: Clinton Hernandez MD - Status History - ENT 06/13/13 0948 PRICE FELIX 06/15/13 1321 MAEGAN ARIAS [place] 06/15/13 1325 MAEGAN ARIAS - [place] Conversion Report - [facility] CONVERTED FINAL REPORT PDF LINK TO COPY AND PASTE \copathshare\copa th\PDF [id number].pdf [facility] Unrecognized Part Type 06/10/2013 06/13/2013 9:48 AM EDT us Copath Conversion LAB CYTOLOGY ORDERABLES Final Result [facility] [address] [place] [id number] from Last 3 Months or Most Recently Relevant to Health Maintenance Insurance MEDICAID Member Subscriber Plan / Payer (Ef fective 2023-Present) Name:Shazia Chou Relation to Subscriber:Self Name:Shazia Chou Payer ID:Not on file Group ID:Not on file Type:Not on file Address: [address] DUAL ADVANTAGE MEDICAID [place]THE[place] DUAL ADVANTAGE Care Teams Business Systems Advisor Relationship Specialty Start Date End Date Generic Provider, [place] [address] PCP - General Certified Health Education Specialist 11/03/24
--- OUTSIDE RECORDS SUMMARY | 2025-05-01 08:33 | XMS_ITS | CCD ---
Author Organization [facility] Care Team Providers Care Change Booth Attendant Name Role Phone Jennie Durand Primary Care Provider [phone] LINDY COTE Attending Unavailable PROVIDER, UNKNOWN Admitting Unavailable PATIENT, SELF Referring Unavailable Jennie Durand Primary Care Provider Jennie Durand DO Primary Care Provider JENNIE DURAND Primary Care Unavailable Jennie Durand DO Primary Care Provider Unavailable Primary Care Provider UnavailAimee Renee Primary Care Physician [phone] Unavailable Primary Care Provider UnavailDO Jennie Pichardo [...] Referring Provider DIANNE Niño-CHRIS Kevin Attending Provider Nakia Mcqueen Primary Care Physician [phone] DR CAROLYNE RALPH Consulting Unavailable MISC, DR VELASCO Primary Care Unavailable HAY ., DR WOLFF Attending Unavailable HAY ., DR WOLFF Admitting Unavailable HAY ., DR WOLFF Consulting Unavailable GABRIELA CAMARGO Attending Unavailable GABRIELA CAMARGO Admitting Unavailable GABRIELA CAMARGO Consulting Unavailable RIVKAC, DR VELASCO Primary Care Unavailable VERO, DR [...] Unavailabl e Nakia Mcqueen Primary Care Physician [phone] Jennie Durand Primary Care Physician [phone] Durand, DO Jennie D Primary Care Provider Tupa, DO Jose Maria Blue Emergency Provider Ania Javed Unavailable Eve Imruth Unavailable Durand, DO Jennie D Primary Care [...] Durand, DO Jennie D Primary Care Provider [phone] MD Marii Christiansen Emergency Provider [phone] Tupa, DO Jose Maria Blue Emergency Provider CEDRIC Javed Emergency Provider Eve BHAKTA, Imad Unavailable Elia Baires DO Primary Care Provider Alexis Shukla Attending Unavailable Bakari Chester Attending Unavailable REFERRAL, SELF Referring Unavailable Otto Larsen Attending Unavaila ble Durand, Jennie D Admitting Unavailable Durand, Jennie D Referring Unavailable Durand, Jennie D Attending Unavailable GIL, BOX FABRICATOR GANESH Bach Attending Unavailable GIL, BOX FABRICATOR GANESH Bach Admitting Unavailable Otto Larsen Attending UnavailAlexis Bergman Attending Unavailable Tevin Carson DO Primary Care Provider [phone] Unavailable Primary Care Provider Unavailbehzad e Unavailable Primary Care Provider Unavailabl TIFFANIE Mckeon Primary Care Physician [phone] [facility] DO, Natacha Unavailable ALEAH HOWARD Referring Unavailable ESHA, KURT A Primary Care Physician Esha, Kurt A Unavailable NON STAFF Primary Care Provider Unavailabl e Safjosee Sailaja STEELE Emergency Provider ESHA, KURT A Attending Unavailable ESHA, KURT A Admitting Unavailable ESHA, KURT A Attending Unavailable TIFFANIE MARADIAGA Primary Care Unavailable ESHA, KURT A Attending Unavailable Corby Larsen DO Unavailable ESHA, KURT A Attending Unavailable ESHA, KURT A Admitting Unavailable ESHA, KURT A Attending Unavailable ESHA, KURT A Attending Unavailable CARSON, TEVIN Attending Unavailable CARSON, TEVIN Primary Care [...] Unavailable NON STAFF Primary Care Provider Unavailabl Corby Gallegos DO M Attending Provider ALEAH HOWARD Attending Unavailable Ander ONCOLOGY PHARMACIST.[facility], [facility] Unavailable MARII RICK Admitting Unavailable MARII RICK Attending Unavailable Bryan Avila Attending Unavailable MOLLY GREGORIO Admitting Unavailable MOLLY GREGORIO Referring Unavailable MOLLY GREGORIO Attending Unavailable Babar Mayers Referring Unavailable Babar Mayers Attending Unavailable Babar Mayers Admitting Unavailable Jennie Durand Admitting Unavailable Jennie Durand Referring Unavailable Durand, Jennie Jeni Attending Unavailable Othmmegan, Mahmoud Consulting Unavailable THERESA GREGORIONIFER Admitting Unavailable MOLLY GREGORIO Referring Unavailable MOLLY GREGORIO Attending Unavailable MD Fernandez Daniels Consulting Unavailable OtFernandez kolb Consulting Unavailable [facility], Jak W Referring Unavailable [facility], Jak W Attending Unavailable [facility], Jak W Admitting Unavailable Babar Mayers Attending Unavailable Babar Mayers Referring Unavailable DurandJennie Attending Unavailable Durand, Jennie D Admitting Unavailable Rhiew, David B Referring Unavailable Rhiew, David B Attending Unavailable Rhiew, David B Admitting Unavailable Rhiew, David B Attending Unavailable Rhiew, David B Admitting Unavailable Bryan Avila Attending Unavailable Jose Correia Attending Unavailable ESHA, KURT Lehman Attending Unavailable [...] D Attending Unavailable BERNARD, MOLLY Referring Unavailable [facility], Jak W Attending Unavailable Esha BOX FABRICATOR, Kurt Lehman Unavailable Corby Larsen DO Unavailable Unallocated , [place] Provider Primary Care [facility] SHAZIA ELISE Attending Unavailable AALIYAH ZAMUDIO Attending Unavailable MOLLY GREGORIO Referring Unavailable CORBY LARSEN Attending Unavailable CORBY LARSEN Attending Unavailable Lindy Keen APRN Primary Care Provider [phone] Efrem Victor MD Attending Provider [phone] Aaliyah Zamudio DO Attending Provider Jennie Durand DO Primary Care Provider NON STAFF Primary Care Unavailable Corby Larsen Admitting Unavailab Corby Apodaca Attending Unavailab Jennie Soria Primary Care Unavailable Itzkowitz, Aaliyah Admitting Unavailable Itzkowitz, Aaliyah Attending Unavailable Osmani Lindy Primary Care Unavailable Valente, Efrem Admitting Unavailab le Valente, Efrem Attending Unavailab le NON STAFF Primary Care Unavailable Saffle, Sailaja N Admitting Unavailable Saffle, Sailaja N Attending Unavailable NON STAFF Primary Care Unavailable Jacob Baker Admitting Unavailable Jacob Baker Attending Unavailable Sami Brewster Attending Unavailable MOLLY GREGORIO Referring Unavailable [facility], Jak W Admitting Unavailable [facility], Jak W Attending Unavailable [facility], Jak W Referring Unavailable KLMARII DOWD R Admitting Unavailable MARII RICK R Attending Unavailable Jennie Durand Referring Unavailable Babar Mayers Admitting Unavailable Babar Mayers Attending Unavailable [facility], Jak W Attending Unavailable NONE, XXXX Referring Unavailable Babar Mayers Referring Unavailable Babar Mayers Attending Unavailable Allergies Allergy Classification Reported Allergen(s) Allergy Type Date of Onset Reaction(s) Facility coconut allergenic extract (7 sources) coconut allergenic extract Drug Allergy 07-18-20 [facility] (20 sources) coconut allergenic extract; Translations: [Coconut Oil] Drug Allergy 07-18-20 [place], [place] (19 sources) Coconut Flavor; Translations: [COCONUT FLAVOR] Propensity to adverse reactions to drug 05-09-20 Anaphylaxis [place], [place] (1 source) SOAP; Translations: [SOAP] Propensity to adverse reactions to drug (disorder) 11-13-19 [facility] ([facility] source) Pencils; Translations: [Unknown] Propensity to adverse reactions (disorder) 11-13-19 [facility] ([facility] sources) Coconut extract; Translations: [coconut] Drug Allergy 07-18-20 [place] (20 sources) ARIPiprazole lauroxil; Translations: [aripiprazole] Drug Allergy [facility] (20 sources) ARIPiprazole; Translations: [aripiprazole] Drug Allergy 08-19-20 Mental Status Change, Other: See Comments, Unknown, Other [facility] Comment on above: Pt states it makes h er suicidal. (1 source) ARIPiprazole Drug Allergy 10-30-19 23 [facility] Repository (20 sources) busPIRone; Translations: [Buspirone] Drug Allergy Unknown, palpitations [facility] (20 sources) buPROPion; Translations: [BUPROPION] Drug Allergy 07-16-20 21 Unknown, Other [facility] (16 sources) busPIRone; Translations: [buspirone] Drug Allergy 12-10-19 24 Palpitations [facility] (4 sources) Coconut Oil, Hydrogenated; Translations: [COCONUT OIL, HYDROGENATED] Propensity to adverse reactions 07-18-20 [facility] Work Phone: (8 sources) Coconut extract Drug Allergy 01-31-20 24 [...] for headache, 12 cap(s), Refill(s) 0, [id number], 170, cm, 08/22/22 10:41:00 EST, Height/Length Dosing, 85, kg, 08/22/22 10:41:00 EST, Weight Dosing Start Date: 08/22/22 Status: Ordered Start: 08-08-2022 take 1 capsule by mo [facility] every four hours for headache [...] day(s), 7 tab(s), Refill(s) 0, [id number], 170, cm, 11/21/22 10:37:00 EST, Height/Length Dosing, [...] 02/06/2021 Start: 01-30-2021 take 1 tablet by [facility] every four hours as needed for pain [...] COCET) 5-325 MG per tablet 1 tablet [id number] actuat albuterol 0.09 mg/actuat metered dose [...] mg / clavulanate 125 mg oral tablet (5 sources) Penicillin-class Antibacterial Start: 04-09-2025 End: 04-19-2025 take 1 tablet by mouth in the morning amoxicillin-clavulanate (Augmentin) 875-125 MG tablet Indications: Pharyngitis, unspecified etiology , Acute pharyngitis, unspecified etiology Take 1 tablet (875 mg) by mouth in the morning and 1 tablet (875 mg) before bedtime. Do all this for 10 days. 20 tablet 04/09/2025 04/19/2025 Active Start: 02-01-2021 End: 02-11-2021 take 1 tablet [...] day(s), # 90 tab(s), Refills(s) 0, Pharmacy: [facility] #[id number], 170, cm, 03/03/25 7:35:00 EDT, Height/Length Dosing, 90.4, kg, 02/17/25 18:58:00 EDT, Weight Dosing Start Date: 03/03/25 Stop Date: 04/02/25 Status: Ordered Quantity: 90.0 Unit: tab(s) Repeat number: 1 brompheniramine maleate 0.4 mg/ml / dextromethorphan hydrobromide 2 mg/ml / pseudoephedrine hydrochloride 6 mg/ml oral solution (3 sources) alpha-Adrenergic Agonist, Uncompetitive O-orlolz-X-aspartat e Receptor Antagonist, Sigma-1 Agonist Start: 02-17-2025 take 10 mL by mouth four times daily Bromfed DM oral syrup 10 mL, Oral, QID for cold symptoms, 200 mL, Refill(s) 0, [facility] #[id number], 170, cm, 02/17/25 18:58:00 EDT, Height/Length Dosing, 90.4, kg, 02/17/25 18:58:00 EDT, Weight Dosing Start Date: 02/17/25 Status: Ordered Quantity: 200.0 Unit: mL Repeat number: 1 calcium carbonate 1250 mg oral tablet (16 sources) Start: 08-11-2022 take 1 tablet by mouth twice daily take 1 tablet by mouth once otto [...] 0 Start Date: 07/01/21 Status: Ordered Vraylar (16 sources) Atypical Antipsychotic Start: 01-13-2025 Vraylar Oral, Daily, Refills(s) 0 Start Date: 01/13/25 Status: Ordered Repeat number: 1 take 1 capsule by mouth once abdelrahman ly Vraylar 1.5 MG capsule Take 1 capsule by mouth Daily Active chlordiazePOXIDE hydrochloride 25 mg oral capsule (1 source) Benzodiazepine take 1 capsule by mouth three times daily as needed for anxiety chlordiazePOXIDE (Librium) 25 MG capsule Take 25 mg by mouth 3 (three) times a day as needed for anxiety Active cyclobenzaprine hydrochloride 10 mg oral tablet (7 sources) Muscle Relaxant Start: 11-20-19 take 1 tablet by mouth three times daily as needed cyclobenzaprine (Flexeril) 10 MG tablet TAKE 1 TABLET BY MOUTH UP TO 3 TIMES DAILY NEEDED 11/19/2024 Active Start: 11-10-2022 End: 09-18-2023 take 1 tablet [...] day(s), # 42 tab(s), Refills(s) 0, Pharmacy: [facility]/pharmacy #[id number], 170, cm, 08/22/22 10:41:00 EST, [...] (BENADRYL) injection 12.5 mg Start: 09-28-2020 End: 01-15-2021 diphenhydrAMINE (BENADRYL) i njection 12.5 mg 0.4 ml enoxaparin sodium 100 mg/ml prefilled syringe (1 source) Low Molecular Weight Heparin Start: 01-30-2021 inject 1 dose by subcutaneous injection twice daily 40 mg, Subcutaneous, EVERY 12 HOURS SCHEDULED (2 times per day), First dose on Thu01/30/21 at 2200 2 ml famotidine 10 mg/ml injection (1 source) Histamine-2 Receptor Antagonist Start: 01-07-2021 famotidine (PEPCID) injection 20 mg ferrous sulfate 325 mg oral tablet (20 sources) Start: 09-15-2024 take 1 tablet by mouth once daily ferrous sulfate 325 mg Tab TAKE 1 TABLET BY MOUTH EVERY DAY FOR 30 DAYS Start Date: 09/15/24 Status: Ordered Repeat number: 1 Start: 06-22-2008 End: 02-13-2022 ferrous sulfate(IRON 325 MG (65 MG IRON) TAB) Ferrous Sulfate (IRON PO) Take by mouth Active gabapentin 600 mg oral tablet (20 sources) Anti-epileptic Agent Start: 01-13-2025 take 1 tablet by mouth three times daily gabapentin 600 mg Tab 600 mg = 1 tab(s), Oral, TID, # 90 tab(s), Refills(s) 2, Pharmacy: [facility]acy #[id number], 170, cm, 01/13/25 8:29:00 EDT, Height/Length Dosing, 88.5, kg, 01/13/25 8:29:00 EDT, Weight Dosing Start Date: 01/13/25 Status: Ordered Quantity: 90.0 Unit: tab(s) Repeat number: 3 Indications: Radiculopathy, lumbar region; Start: 10-14-2024 take 1 capsule by mo uth in the morning, then take 1 capsule by mouth in the evening, then take 1 capsule by mouth at bedtime gabapentin (Neurontin) 300 MG capsule Take 1 capsule by mouth in the morning and 1 capsule in the evening and 1 capsule before bedtime. 10/14/2024 Active Start: 10-14-2024 take 1 capsule by mo uth three times daily gabapentin 300 mg Cap 300 mg = 1 cap(s), Oral, TID, # 90 cap(s), Refills(s) 0, Pharmacy: [facility]/pharmacy #[id number], 170, cm, 10/14/24 9:02:00 EST, [...] mg hydrOXYzine hydrochloride 50 mg oral tablet (13 sources) Antihistamine Start: 04-21-2022 hydrOXYzine hy drochloride [...] Benzodiazepine Start: 12-31-2023 take 1 tablet by juan manuel three times daily as needed for anxiety Start: 01-31-2020 End: 08-19-2022 take 1 tablet [...] day(s), # 18 tab(s), Refills(s) 0, Pharmacy: [facility]/pharmacy #[id number], 170, cm, 10/18/24 8:12:00 EST, [...] Ordered Multiple Vitamins-Minerals (multivitamin with minerals) tablet (8 sources) take 1 tablet by mouth once [...] Daily August 11, 2022 12:00am Multivitamin Tablet (4 sources) Start: 08-11-2022 take 1 tablet by mouth once da rafita Start: 08-11-2022 take 1 tablet by juan manuel th once daily Multivitamin Tablet Active 1 TAB PO Daily August 11, 2022 1:00am Start: 08-11-2022 take 1 tablet by juan manuel th once daily Multivitamin Tablet Active 1 TAB PO Daily August 11, 2022 12:00am pngqzmwbvntq-hes-qgvw-FA-vit K (BARIATRIC MULTIVITAMINS) 45 mg iron- 800 mcg-120 mcg cap (20 sources) multivitamin-min -iron-FA-vit K (BARIATRIC MULTIVITAMINS) 45 mg iron- 800 mcg-120 mcg cap Take by mouth. Active multivitamin-min -iron-FA-vit K (BARIATRIC MULTIVITAMINS) 45 mg iron- 800 mcg- 120 mcg cap Take by mouth. 0 Active Comment on above: Take by mouth. wexnwlsrnjwz-slk-of on-FA-vit K (Bariatric Multivitamins) 45 mg iron- [...] day(s), # 20 tab(s), Refills(s) 0, Pharmacy: [facility]/pharmacy #[id number], 170, cm, 03/08/24 13:22:00 EDT, Height/Length Dosing, 89.4, kg, 03/08/24 13:22:00 EDT, Weight Dosing Start Date: 03/08/24 Stop Date: 03/18/24 Status: Ordered Start: 04-20-2022 take 1 tablet by juan manuel twice daily as needed for pain naproxen 500 mg Tab 500 mg = 1 tab(s), Oral, BID, PRN for pain, # 20 tab(s), Refills(s) 0, Pharmacy: [facility]/pharmacy #[id number], 170, cm, 04/20/22 15:01:00 EDT, Height/Length Dosing, 81.5, kg, 04/20/22 15:01:00 EDT, Weight Dosing Start Date: 04/20/22 Status: Ordered 24 hr nicotine 0.583 mg/hr transdermal system (1 source) Cholinergic Nicotinic Agonist Start: 11-03-2022 End: 01-02-2023 nicotine 14 mg/24 hr Transderm ER Film 1 patch(es), Topical, Daily for 30 day(s), 30 patch(es), Refill(s) 1, [facility]/pharmacy #[id number], 170, cm, 11/03/22 13:04:00 EST, Height/Length Dosing, 83.9, kg, 11/03/22 13:04:00 EST, Weight Dosing Start Date: 11/03/22 Stop Date: 01/02/23 Status: Ordered 24 hr NIFEdipine 30 mg extended release oral tablet (3 sources) Dihydropyridine Calcium Channel Minnie Start: 03-15-2025 take 1 tablet by mouth once daily, then take 1 tablet by mouth every twenty-four hours NIFEdipine CC (Adalat CC) 30 MG 24 hr tablet Take 30 mg by mouth Daily 03/15/2025 Active nitrofurantoin macrocrystals-monoh ydrate 100 mg Cap (2 [...] FOOD Start Date: 01/29/22 Status: Ordered nystatin [id number] unt/ml oral suspension (1 source) Polyene Antifungal [...] BID, # 6 tab(s), Refills(s) 1, Pharmacy: [facility]/pharmacy #[id number], 162, cm, 08/08/22 9:11:00 EST, [...] MG tablet Take by mouth Active Trileptal (16 sources) Anti-epileptic Agent Start: 08-22-2022 Trileptal Refills(s) [...] take 1 tablet by mouth once daily End: 08-08-2024 take 1 tablet by mouth [...] day(s), # 21 tab(s), Refills(s) 0, [id number] 170, cm, 10/18/24 8:12:00 EST, [...] day(s), # 60 cap(s), Refills(s) 0, Pharmacy: [facility]/pharmacy #[id number], 170, cm, 11/15/24 13:59:00 EST, [...] day(s), # 60 cap(s), Refills(s) 1, Pharmacy: [facility]/pharmacy #[id number], 170, cm, 11/15/24 13:59:00 EST, [...] scopolamine (TRANSDERM-SCOP) transdermal patch 1 patch Semaglutide (5 sources) Start: 12-31-2023 Start: 12-31-2023 Semaglutide (O zempic) 0.25 mg [...] oral table t (20 sources) Start: 08-15-2023 Start: 11-20-2022 End: 06-03-2023 topiramate (TOPAMAX) 100 [...] Status: Ordered Start: 08-11-2022 End: 07-03-2023 take 1 tablet by mouth once daily at bedtime Trazodone 100 mg Tablet Discontinued 100 MG PO Daily at bedtime August 11, 2022 1:00am July 03, 2023 10:07am Start: 01-31-2022 End: 02-07-2022 take 1 tablet by mouth once daily at bedtime traZODONE 50 mg Tab 50 mg = 1 tab(s), Oral, Once a day (at bedtime), X 7 day(s), # 7 tab(s), Refills(s) 0, Pharmacy: [facility]/pharmacy #[id number], 170, cm, 01/31/22 16:58:00 EDT, [...] number: 1 ziprasidone 20 mg oral capsule (8 sources) Atypical Antipsychotic take 1 capsule by [...] Nausea/Vomiting, # 12 tab(s), Refills(s) 0, Pharmacy: [facility]/pharmacy #[id number], 162, cm, 08/08/22 9:11:00 EST, Height/Length Dosing, 83.1, kg, 08/08/22 9:11:00 EST, Weight Dosing Start Date: 08/08/22 Status: Ordered Completed/Discontinued Medications Medication Drug Class(es) Dates Sig (Normalized) Sig (Original) acetaminophen 325 mg / HYDROcodone bitartrate 5 mg oral tablet (2 sources) Opioid Agonist End: 08-08-2024 take 1 tablet by mouth every six hours as needed HYDROcodone-acetami nophen ([place]) 5-325 mg tablet Take 1 tablet by mouth every 6 hours if needed. 08/08/2024 Discontinued (Therapy completed) acetaZOLAMIDE 250 mg oral tablet (20 sources) Carbonic Anhydrase Inhibitor Start: 07-07-2023 End: 04-09-2025 take 1 tablet by mouth twice daily [...] above: Take 1 capsule by [facility] twice daily. Start from 500mg daily, [...] (20 sources) Atypical Antipsychotic Start: 06-26-2021 End: 04-09-2025 REXULTI 4 MG TABS tablet Start: 01-08-2019 take 1 tablet by mouth once da rafita at bedtime Rexulti Active Comment on above: Take by [...] 12 hrs for 7 days Nov, Not-Taking/PRN DULoxetine 30 mg delayed release oral capsule [...] Daily at bedtime July 20, 2020 1:00am Rolf 6th, 2022 8:39am Take with 60mg tablet for [...] Ordered Start: 01-08-2019 take 1 capsule by [facility] twice daily Start: 01-08-2019 End: 03-08-2024 take 1 capsule by mouth once daily at bedtime Duloxetine (Cymbalta) 60 mg Capsule,Delayed Release(Dr/Ec) Active 60 MG PO Daily at bedtime January 08, 2019 12:00am take 1 capsule by [facility] every eight hours Cymbalta 30 MG 1 capsule Orally three times a day Active Cymbalta Active Comment on above: Take 60 mg by mouth once daily. ergocalciferol 1.25 mg oral capsule (11 sources) Provitamin D2 Compound Start: 07-19-2020 End: 08-19-2022 Ergocalciferol (Vitamin D2) 1,250 mcg (50,000 unit) capsule Discontinued [id number] UNIT PO every week July 19, 2020 1:00am August 19, 2022 8:39am Start: 07-19-2020 End: 08-19-2022 take [id number] [IU] by mouth every week Ergocalciferol (Vitamin D2) Discontinued [id number] UNIT PO every week July 19, 2020 [...] mg hydrocortisone + Doxycycline 1,000 mg (tabs/cap)., [facility]/pharmacy #[id number], Compound, 170, cm, 02/06/22 9:17:00 EDT, Height/Length Dos... Start Date: 02/06/22 Stop Date: 02/20/22 Status: Ordered methylPREDNISolone 4 mg oral tablet (11 sources) Corticosteroid Start: 12-03-2018 End: 04-13-2025 methylPREDNISolone 4 MG as directed Orally take [...] 0 Active sucralfate 1000 mg oral tablet (9 sources) Aluminum Complex Start: 07-30-2023 End: 12-31-2023 take 1 tablet by mouth four times daily Sucralfate 1 gram tablet Discontinued 1 GM PO Four times daily August 15, 2023 1:00am December 31, 2023 12:00pm SUMAtriptan (3 sources) Serotonin-1b and Serotonin-1d Receptor Agonist Imitrex Not-Taking/PRN Imitrex Not-Taki ng terbinafine 250 mg oral tablet (11 sources) Allylamine Antifungal Start: 07-19-2020 End: 07-20-2020 [...] Date Documented Da te Episodic/Chronic Abdominal pain (20 sources) Generalized abdominal pain; Translations: [Generalized abdominal [...] 0 05-16-2020 Chronic Blindness and vision defects (20 sources) Blurring of visual image; Translations: [Other visual disturbances] Onset: 2 08-11-2022 Episodic Cardiac dysrhythmias (20 sources) Palpitations; Translations: [Palpitations] Onset: 4 08-12-2022 Episodic Chronic obstructive pulmonary disease and bronchiectasis (2 sources) Bronchitis, not specified as acute or chronic; Translations: [Bronchitis] Onset: 5 Episodic Conditions associated with dizziness or vertigo (2 sources) Dizziness and giddiness; Translations: [Dizziness and giddiness] Onset: 3 Episodic Coronary atherosclerosis and other heart disease (11 sources) Angina pectoris; Translations: [Angina pectoris, unspecified] Onset: 4 08-13-2024 Chronic Diseases of white blood cells (8 sources) Leukocytosis; Translations: [Elevated white blood cell count, unspecified] Onset: 2 Chronic Esophageal disorders (20 sources) Gastroesophageal reflux disease without esophagitis; Translations: [Gastro-esophageal reflux disease with esophagitis] Onset: 0 Resolved: 3 05-23-2020 Chronic Essential hypertension (20 sources) Essential hypertension; Translations: [Essential (primary) hypertension] Onset: 2 Resolved: 4 Chronic Headache; including migraine (17 sources) Tension-type headache; Translations: [Tension-type headache, unspecified, not intractable] Onset: 4 08-21-2022 Chronic Headache; including migraine (20 sources) Headache; Translations: [Headache, unspecified] Onset: 2 Episodic Headache; including migraine (4 sources) Headache; including migraine; Translations: [HEADACHE UNSPECIFIED] Onset: 2 Joint disorders and dislocations; trauma-related (3 sources) Derangement of left knee; Translations: [Unspecified internal derangement of left knee] Onset: 5 12-22-2024 Chronic Lymphadenitis (13 sources) Localized enlarged lymph nodes; Translations: [Localized enlarged lymph nodes] Onset: 2 Episodic Mood disorders (20 sources) Bipolar disorder; Translations: [Bipolar disorder, unspecified] Onset: 0 05-16-2020 Chronic Mood disorders (1 source) Mood disorders; Translations: [Depression, unspecified] Onset: 0 Nausea and vomiting (14 sources) Vomiting, unspecified; Translations: [Nausea] Onset: 2 [...] deficiency, unspecified] Onset: 0 06-27-2020 Chronic Osteoarthritis (18 sources) Arthritis; Translations: [Unspecified osteoarthritis, unspecified site] Onset: 0 05-16-2020 Chronic Other acquired deformities (1 source) Spondylolisthesis; Translations: [Spondylolisthesis, site unspecified] Onset: 4 Episodic Other aftercare (1 source) 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 warehouse receiver (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; Translations: [OTH DETENTION CURRENT DRUG THERAPY] Onset: 3 Episodic Other [...] site] 09-21-2024 Episodic Other connective tissue disease (5 sources) Pain in both feet; Translations: [Bilateral foot pain] Onset: 0 05-23-2020 Other eye disorders (8 sources) Optic disc edema; 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] Onset: 4 01-31-2024 Chronic Other gastrointestinal disorders (1 source) Other intestinal malabsorption; Translations: [Other intestinal malabsorption] Onset: 3 Chronic Other gastrointestinal disorders (6 sources) Intestinal malabsorption; Translations: [Intestinal malabsorption, unspecified] Onset: 3 11-19-2022 Chronic Other gastrointestinal disorders (20 sources) Mass of pancreas 07-01-2021 Episodic Other gastrointestinal disorders (4 sources) Cyst of abdomen 08-23-2023 Episodic Other [...] Onset: 3 Chronic Other nervous system disorders (8 sources) Ulnar neuropathy; 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 nerve, unspecified upper limb] Onset: 4 01-31-2024 Chronic Other nervous system disorders (9 sources) Chronic pain; Translations: [Other chronic pain] Onset: 4 01-31-2024 Chronic Other nervous system disorders (20 sources) Chronic pain syndrome 09-30-2024 Chronic Other nervous system disorders (3 sources) Difficulty walking; Translations: [Difficulty in walking, not elsewhere classified] Onset: 5 12-22-2024 Chronic Other nervous system disorders (3 sources) Tarsal tunnel syndrome; Translations: [Tarsal tunnel syndrome, unspecified lower limb] Onset: 5 12-22-2024 Chronic Other nervous system disorders (1 source) [...] Chronic Other nutritional; endocrine; and metabolic disorders (15 sources) Overweight; Translations: [Overweight] Onset: 2 Episodic Other nutritional; endocrine; and metabolic disorders (20 sources) Body mass index 25-29 - overweight; Translations: [Overweight] Onset: 2 11-20-2021 Episodic Other skin disorders (1 source) Skin finding; Translations: [Excessive and redundant skin and subcutaneous tissue] Episodic Other skin disorders (4 sources) Loss of hair; Translations: [Nonscarring hair loss, unspecified] 09-15-2024 Episodic Personality disorders (20 sources) Borderline personality disorder; Translations: [Borderline personality disorder] Onset: 0 05-23-2020 Chronic Poisoning by psychotropic agents (20 sources) Intentional benzodiazepine overdose; Translations: [Poisoning by benzodiazepines, intentional self-harm, initial encounter] 04-21-2022 Episodic Residual codes; unclassified (8 sources) Patient encounter status; Translations: [Encounter for [...] both cervix and uterus] Onset: 3 Episodic Substance-related disorders (20 sources) Smoker; Translations: [...] gangrene] Resolved: 07-24-2021 Episodic Acquired foot deformities (13 sources) Acquired bilateral pes planus; Translations: [Flat foot [pes planus] (acquired), right foot] Onset: 05-23-2020 05-23-2020 Episodic Administrative/social admission (3 sources) Education and/or schooling finding; Translations: [Problems related to education and literacy, unspecified] Onset: 06-13-2002 12-22-2024 Episodic Complications of surgical procedures or medical care (19 sources) Reaction to lumbar puncture; Translations: [Other reaction to spinal and lumbar puncture] Onset: 08-22-2022 Episodic Deficiency and other anemia (20 sources) Iron deficiency anemia; Translations: [Iron deficiency anemia, unspecified] Onset: 12-22-2024 07-25-2024 Episodic Comment on above: noted in 09/16/2024 [facility] Records page 5. added per OP CDI policy. Diseases of mouth; excluding dental (4 sources) Lesion of oral mucosa; Translations: [Unspecified lesions of oral mucosa] Onset: 02-06-2022 Episodic Fever of unknown origin (3 sources) Fever, unspecified; Translations: [FEVER UNSPECIFIED] Onset: 05-30-2022 Episodic Fluid and electrolyte disorders (6 sources) Dehydration; Translations: [Dehydration] Onset: 01-26-2021 Resolved: 02-25-2021 Episodic Malaise and fatigue (13 sources) Asthenia; Translations: [Weakness] Onset: 01-31-2024 01-31-2024 Episodic Menstrual disorders (6 sources) Excessive and frequent menstruation with irregular cycle; Translations: [Menorrhagia] Onset: 10-30-2022 Resolved: 05-27-2023 Chronic Nutritional deficiencies (8 sources) Iron deficiency; Translations: [Serum iron low] Onset: 05-27-2023 05-27-2023 Episodic Other complications of (20 sources) Poor growth affecting management; Translations: [Maternal care for other known or suspected poor growth, unspecified trimester, not applicable or unspecified] Onset: 07-03-2008 Resolved: 03-08-2024 07-03-2008 Episodic Other connective tissue disease (13 sources) Pain in both feet; Translations: [Pain in right foot] Onset: 05-23-2020 05-23-2020 Episodic Other connective tissue disease (20 sources) Plantar fasciitis; Translations: [Plantar fascial fibromatosis] Onset: 03-08-2024 Resolved: 03-08-2024 07-01-2021 Episodic Other connective tissue disease (20 sources) Muscle weakness; Translations: [Muscle weakness (generalized)] Onset: 12-22-2024 09-26-2024 Episodic Other gastrointestinal disorders (20 sources) History [...] Onset: 11-19-2021 Episodic Other lower respiratory disease (14 sources) Dyspnea; Translations: [Shortness of breath] Onset: 08-08-2024 08-13-2024 Episodic Other lower respiratory disease (2 sources) Shortness of breath; Translations: [Shortness of breath] Onset: 08-08-2024 Episodic Other nervous system disorders (8 sources) Numbness; Translations: [Anesthesia of skin] Onset: 01-31-2024 01-31-2024 Episodic Other nervous system disorders (16 sources) Paresthesia; Translations: [Paresthesia of skin] Onset: 01-31-2024 01-31-2024 Episodic Other nervous system disorders (1 source) Ataxia, unspecified; Translations: [Ataxia, unspecified] Onset: 12-16-2024 Episodic Other non-traumatic joint disorders (3 sources) Sinus tarsi syndrome of right ankle; Translations: [Pain in right ankle and joints of right foot] Onset: 12-22-2024 12-22-2024 Episodic Other nutritional; endocrine; and metabolic disorders (20 sources) Body mass index 40+ - severely obese; Translations: [Morbid (severe) obesity due to excess calories] Onset: 05-16-2020 Resolved: 01-04-2024 Chronic Other nutritional; endocrine; and metabolic disorders (20 sources) Overweight in adulthood with body mass index of 25 or more but less than 30; Translations: [Body mass index (BMI) 29.0-29.9, adult] Onset: 02-06-2022 Episodic Other nutritional; endocrine; and metabolic disorders [...] 07-11-2024 07-06-2024 Episodic Other upper respiratory infections (18 sources) Acute upper respiratory infection, unspecified; Translations: [Acute pharyngitis, unspecified] Onset: 12-01-2002 Episodic Otitis media and related conditions (5 sources) Acute suppurative otitis media without spontaneous [...] states] Onset: 11-20-2022 Episodic Residual codes; unclassified (20 sources) Family history of malignant neoplasm of pancreas; Translations: [Family history of malignant neoplasm of digestive organs] Onset: 03-08-2024 03-08-2024 Episodic Residual codes; unclassified (20 sources) Family history of cancer; Translations: [Family history of malignant neoplasm, unspecified] Onset: 03-08-2024 03-08-2024 Episodic Residual codes; unclassified (10 sources) Family history of ischemic heart disease; Translations: [Family history of ischemic heart disease and other diseases of the circulatory system] Onset: 08-08-2024 08-13-2024 Episodic Residual codes; unclassified (4 sources) Family [...] Spondylosis; intervertebral disc disorders; other back problems (7 sources) Backache; Translations: [Dorsalgia, unspecified] Onset: 06-13-2002 Episodic Sprains and strains (9 sources) Injury of muscle and tendon at [...] Test Name Value Interpretation Reference Range Facility [facility]/ in Noteon 04-27-2025 [facility] Office/Clinic Note [facility]/Clinic Note Chief Complaint f/u after testing History of Present Illness Patient is a 34 year old female here to follow up after testing. Patient states she is feeling about the same, she states her heart rate has been slow sometimes, but sometimes has still been high. She states the highs have been better but she is still having the drops. Patient states her insurance denied a sleep study. Patient was approved for an at home sleep study. If she has sleep apnea she could try to get inspire. Review of Systems PHQ Score Initial Depression Screen Score: 0 SCORE ROS - Provider Constitutional: no fever, no chills, no sweats, no weakness Respiratory: no shortness of breath, no cough Cardiovascular: no chest pain Neuro: no dizziness. no loss of consciousness Physical Exam Vitals & Measurements HR: 67(Peripheral) RR: 16 BP: 132/86 SpO2: 100% HT: 170 cm WT: 91.6 kg BMI: 31.7 General: alert, no acute distress Neck: Supple, noJVD nocarotid bruit Cardiovascular: regular rate and rhythm, no murmur normal peripheral perfusion Respiratory: Lungs CTAB, respirations non labored Extremities: no edema left lower extremity. no edema right lower extremity Neurological: oriented x 4, LOC appropriate for age, speech normal Skin: Warm, dry, intact- no rash or concerning lesion Cardiac Diagnostics (02/09/2025 11:26 EDT Echo Transthoracic Complete) Interpretation Summary The left ventricle is normal in size. There is normal left ventricular wall thickness. Ejection Fraction = 60-65%. The left ventricular ejection fraction is normal. [2] (02/16/2025 14:18 EDT XR Chest 2 Views) FINDINGS: Two views of the chest were obtained. Heart and mediastinum appear normal. The lungs appear clear. Visualized bony thorax and remainder of the chest appears unremarkable. [1] (03/10/2025 Event Monitor) FINDINGS: 1. Predominant rhythm was sinus bradycardia, [...] with her symptoms with abnormal cardiac rhythm. [2] Assessment/Plan 1. Inappropriate sinus tachycardia (I47.11: Inappropriate sinus tachycardia, so stated) Patient possibly has untreated sleep apnea, we are unable to do a at home sleep study for at least 2 months. Patient will follow up in 3 months or sooner if she becomes more symptomatic with heart rhythms. Marina Ware personally transcribed this note for on 04/27/2025 at 1540. Follow-up With When Contact Information Nata BHAKTA, Jak W, CAR Within 3 months [address] [place] [address]- Additional Instructions: Nata BHAKTA, Jak W, CAR Within 3 months [address] [place] [place] [address]- Additional Instructions: Problem List/Past Medical History Ongoing Alcohol abuse, uncomplicated Bipolar disorder BMI 31.0-31.9,adult Borderline personality disorder Chronic pain syndrome History of bypass of stomach Hypertension Iron deficiency anemia Left breast mass Muscle weakness-general Obesity (BMI 30-39.9) AIDEN (obstructive sleep apnea) Overweight (BMI 25.0-29.9) Palpitations Pancreatic mass Smoker Vitamin D deficiency Historical [...] NERVE DECOMPRESSION (02/11/2019), x3, Foot, Foot, Gastric bypass operation, History of tubal ligation, Lumbar puncture to lower intracranial pressure. Medications Cymbalta, 60 mg, Oral, BID ferrous sulfate 325 mg Tab gabapentin 600 mg Tab, 600 mg= 1 tab(s), Oral, TID, 2 refills lamotrigine, 100 mg, Oral, Daily Lexiscan 0.4 mg/5 mL Soln-IV, 0.4 mg= 5 mL, IV Push, Once, PRN Multi-Day Plus Minerals, Oral, Daily NIFEdipine (Eqv-Adalat CC) 30 mg oral tablet, extended release trazodone, 100 mg, Oral, Once a day (at bedtime) Tylenol, 325 mg, Oral, q4hr, PRN Vraylar, Oral, Daily work excuse, 0 Allergies (more content not included)... Normal [facility] Comment on above: Result Comment: Elec tronically Signed By: Jak Peace MD W\.br\Date and Time Signed: 04/27/25 15:42 EDT\.br\Electronically Co-Signed By: Roxana Shipman\.br\Date and Time Co-Signed: 04/27/25 15:40 EDT MM diagnostic mammo LT w/CAD on 04-26-2025 MM diagnostic mammo LT w/CAD [facility] [place] [address] Ultrasound Report Signed Patient: Shazia Chou MR#: [id number] : 1990 Acct:[id number] Age/Sex: 34 / F ADM Date: 04/26/25 Loc: [place] [facility] Dr: Aaliyah Zamudio DO Ordering Provider: Aaliyah Zamudio DO Date of Service: 04/26/25 MM/MM diagnostic mammo LT w/CAD: follow up for Left breast Upper outer quadrant ([id number]) US/US breast LT limited: follow with mamm upper outer quadrant Copies to: Aaliyah Zamudio DO DIAGNOSTIC LEFT MAMMOGRAM - FULL FIELD [...] [place] Tech: Shazia Vaughn Transcribed By: MARKY 04/26/25 1015 Dictated By: Denny Escalante MD 04/26/25 1009 Signed By: 04/26/25 1015 Normal [facility] NM Myocardial Spect Rest/Str ess 1 Dayon 04-26-2025 NM Myocardial Spect Rest/Stress 1 Day Exam Date/Time: 04/17/2025 11:57 EDT Reason for Exam: R00.2;Chest pain Report [address] [address] Nuclear Stress Report Name: SHAZIA CHOU Study Date: 04/17/2025 08:00 AM Patient Location: [facility] : 1990 (M/d/yyyy) Gender: Female Age: 34 yrs Ethnicity: WHT Reason For Study: R00.2;Chest pain Ordering Physician: Jak Peace Referring Physician: Jak Peace Protocol [id number] Pharmacologic Lexiscan stress with Isotope. Study Protocol: One day rest/stress acquisition. Rest Dose Tc99m Cardiolite was administered. Rest Dose: 10.3 mCi IV. Stress Dose Stress Protocol: Lexiscan. Stress Dose: 28.9 mCi IV. Stress Parameters Normal blood pressure response. multiple somatic complaints, resolved at completion of study. ECG Rest Normal ECG. ECG Peak No significant changes from baseline. No ST-T wave changes from baseline. Arrhythmia No arrhythmias. Image Quality Rest Images: Diagnostic in quality. Stress Images: Diagnostic in quality. SPECT Perfusion Normal rest and stress perfusion. small apical attenuation defect consistent with breast attenuation. Left Ventricle Normal global and regional wall motion in all territories. mildly elevated TID of 1.14 Report Normal LVEF of 63 %. Interpretation Summary Normal global and regional wall motion in all territories. small apical attenuation defect consistent with breast attenuation mildly elevated TID of 1.14 Normal LVEF of 63 % multiple somatic complaints, resolved at completion of study FINAL REPORT Dictated: 04/17/2025 8:00 am Catalino Vaca MD Signed (Electronic Signature): 04/26/2025 1:08 pm Signed by: Catalino Vaca MD Transcribed by: BANNER Technologist: SHAHZAD Walters [facility] S. pyogenes DNA JOSÉ MIGUEL+probe No m (Unsp spec)on 04-09-2025 Interpretation and review of laboratory results Normal [facility] RESULT Negative Negative [facility] Event Monitoron 03-15-2025 Event Monitor Event Monitor [...] rhythm. READ BY: terrell Arredondo Dictated: 03/10/2025 [id number] Transcribed: 03/14/2025 cc:*Jak Peace M.D. [facility] Comment on above: Result Comment: Elec tronically Signed By: Lio BHAKTA, Catalino Baker\.br\Date and Time Signed: 03/15/25 07:49 EDT Main OR Intraoperative Recor don 03-03-2025 Main OR Intraoperative Record Main OR Intraoperative Record IntraOp Document Type FTPM Summary Primary Physician: Babar Mayers DO Finalized Date/Time: 03/03/25 08:45:29 Pt. Name: SHAZIA CHOU/Sex: 1990 Female Med Rec #: [id number] Physician: Babar Mayers DO Financial #: [id number] Pt. Type: P Room/Bed: / Admit/Disch: 03/03/25 [...] Lulu Bellamy Role Performed Surgeon - Primary Drywall Contractor - Primary Scrub - Primary Time In 03/03/25 08:33:00 03/03/25 08:33:00 03/03/25 08:33:00 Time Out 03/03/25 08:45:00 03/03/25 08:45:00 03/03/25 08:45:00 Procedure MEDIAL BRANCH MEDIAL BRANCH MEDIAL BRANCH BLOCK(Bilateral) BLOCK(Bilateral) BLOCK(Bilateral) Comments Last Modified By: Giorgi ROLLE, Corby Rand RN, Corby Bell RN 03/03/25 08:44:15 M 03/03/25 08:44:15 03/03/25 08:44:15 Entry 4 Case Attendee Isaac DAWN(R)Amina Role Performed Cattle Killer Time In 03/03/25 08:33:00 Time Out 03/03/25 [...] Time Out Corby Rand RN, Roderick RN, Lulu Bellamy, Babar Mayers DO, Christman RT(R)Amina Time Out Complete 03/03/25 08:33:00 [...] and tissue Entry 1 Skin Integrity Intact, [place], Warm, & Skin Abnormality No Dry Outcomes [...] Checked Ye (more content not included)... Normal [facility] Main OR Preoperative Recordo n 03-03-2025 Main OR Preoperative Record Main OR Preoperative Record Holding Area Document Type FTPM Summary Primary Physician: Babar Mayers DO Finalized Date/Time: 03/03/25 07:33:54 Pt. Name: SHAZIA CHOU Valentina/Sex: 1990 Female Med Rec #: [id number] Physician: Babar Mayers DO Financial #: [id number] Pt. Type: P Room/Bed: / Admit/Disch: 03/03/25 [...] one bracelet and ten earrings. Pain Comment: 610 lower back pain Operative Site Yes Marking: [...] By: Gabrielle Sultana RN 03/03/25 07:33 Normal [facility] CBC w/Indiceson 03-02-2025 Erythrocyte distribution width (RBC) [Ratio] 14.4 % High 10.9-14.2 [facility] Comment on above: Performed By: #### 2 [id number] #### [facility] [address] [place] [address] Hematocrit (Bld) [Volume fraction] 39.0 % Normal 34.0-46.0 [facility] Comment on above: Performed By: #### 2 [id number] #### [facility] [address] [place] [address] Hemoglobin (Bld) [Mass/Vol] 13.2 g/dL Normal 12.0-16.0 [facility] Comment on above: Performed By: #### 2 [id number] #### [facility] [address] [place] [address] MCH (RBC) [Entitic mass] 33.5 pg Normal 27.0-34.0 [facility] Comment on above: Performed By: #### 2 [id number] #### [facility] [address] [place] [address] MCHC (RBC) [Mass/Vol] 33.8 g/dL Normal 31.4-36.0 [facility] Comment on above: Performed By: #### 2 [id number] #### [facility] [address] [place] [address] MCV (RBC) [Entitic vol] 99.1 fL Normal 80.0-100.0 [facility] Comment on above: Performed By: #### 2 [id number] #### [facility] [address] [place] [address] Platelet 325.0 E9/L Normal 150.0-500.0 [facility] Comment on above: Performed By: #### 2 [id number] #### [facility] [address] [place] [address] Platelet mean volume (Bld) [Entitic vol] 9.5 fL Normal 6.4-10.8 [facility] Comment on above: Performed By: #### 2 [id number] #### [facility] [address] [id number] RBC 3.9 E12/L Low 4.3-5.9 [facility] Comment on above: Performed By: #### 2 [id number] #### [facility] [address] [id number] RBC morphology finding Nom (Bld) NORMAL Invalid Interpretation Code [facility] Comment on above: Performed By: #### 2 [id number] #### [facility] [address] [place] [address] WBC 13.1 E9/L High 4.0-11.0 [facility] Comment on above: Performed By: #### 2 [id number] #### [facility] [address] [id number] CHEMISTRYOrdered By: SYSTEM SYSTEM on 03-02-2025 Ferritin [Mass/Vol] 11 ng/mL Normal 11 - 307 ng/mL Remisol Chem Iron [Mass/Vol] 156 ug/dL High 35 - 153 mcg/dL Remisol Chem Iron binding capacity [Mass/Vol] 403 ug/dL High 250 - 400 mcg/dL Remisol Chem Transferrin [Mass/Vol] 288 mg/dL Normal 200 - 370 mg/dL Remisol Chem Ferritinon 03-02-2025 Ferritin Lvl 11 ng/mL Normal 11-307 [facility] Comment on above: Performed By: #### 2 [id number] #### [facility] [address] [place] [address] HEMATOLOGYOrdered By: SYSTEM SYSTEM on 03-02-2025 Erythrocyte [...] Ironon 03-02-2025 Iron 156 microgram/dL High 35-153 [facility] Comment on above: Performed By: #### 2 [id number] #### [facility] [address] [place] [address] TIBC Calculatedon 03-02-2025 TIBC 403 microgram/dL High 250-400 [facility] Comment on above: Performed By: #### 1 [id number] #### [facility] [address] [place] [address] Transferrin [Mass/Vol] 288 mg/dL Normal 200-370 [facility] Comment on above: Performed By: #### 1 [id number] #### [facility] [address] [place] [address] ED Note-Physicianon 02-22-20 25 ED Note-Physician ED Note-Physician Basic Information [...] and symmetry. No ataxia with finger-nose or [id number]. Intact strength and sensation of bilateral upper [...] unspecified) Dizzi (more content not included)... Normal [facility] Comment on above: Result Comment: Elec tronically Signed By: Shirlene GERONIMO, Ben Rangel\.br\Date and Time Signed: 02/17/25 20:20 EDT\.br\Electronically Co-Signed [...] DO Transcribed by: MARCO Technologist: DANISH Normal [facility] BMPon 02-17-2025 Anion gap [Moles/Vol] 14 mmol/L Normal 6-16 [facility] Comment on above: Performed By: #### 2 [id number] #### [facility] [address] [place] [address] BUN/Creat Ratio 16 No Units Normal 10-20 [facility] Comment on above: Performed By: #### 2 [id number] #### [facility] [address] [place] [address] Calcium [Mass/Vol] 10.4 mg/dL Normal 8.9-11.1 [facility] Comment on above: Performed By: #### 2 [id number] #### [facility] [address] [place] [address] Chloride [Moles/Vol] 105 mmol/L Normal 101-111 [facility] Comment on above: Performed By: #### 2 [id number] #### [facility] [address] [place] [address] CO2 [Moles/Vol] 21 mmol/L Normal 21-31 [facility] Comment on above: Performed By: #### 2 [id number] #### [facility] [address] [place] [address] Creatinine [Mass/Vol] 0.7 mg/dL Normal 0.5-1.3 [facility] Comment on above: Performed By: #### 2 [id number] #### [facility] [address] [place] [address] Glucose [Mass/Vol] 109 mg/dL Normal 55-199 [facility] Comment on above: Performed By: #### 2 [id number] #### [facility] [address] [place] [address] Potassium [Moles/Vol] 3.8 mmol/L Normal 3.5-5.3 [facility] Comment on above: Performed By: #### 2 [id number] #### [facility] [address] [place] [address] Sodium [Moles/Vol] 136 mmol/L Normal 135-145 [facility] Comment on above: Performed By: #### 2 [id number] #### [facility] [address] [place] [address] Urea nitrogen [Mass/Vol] 11 mg/dL Normal 5-21 [facility] Comment on above: Performed By: #### 2 [id number] #### [facility] [address] [place] [address] CBC w/ Auto Diffon 5 Basophil Absolute 0.0 E9/L Normal 0.0-0.2 [facility] Comment on above: Performed By: #### 2 [id number] #### [facility] [address] [place] [address] Basophils/100 WBC (Bld) 0.3 % Normal 0.0-2.0 [facility] Comment on above: Performed By: #### 2 [id number] #### [facility] [address] [place] [address] Eos Absolute 0.0 E9/L Normal 0.0-0.5 [facility] Comment on above: Performed By: #### 2 [id number] #### [facility] [address] [place] [address] Eosinophils/100 WBC (Bld) 0.2 % Normal 0.0-8.0 [facility] Comment on above: Performed By: #### 2 [id number] #### [facility] [address] [place] [address] Erythrocyte distribution width (RBC) [Ratio] 14.2 % Normal 10.9-14.2 [facility] Comment on above: Performed By: #### 2 [id number] #### [facility] [address] [place] [address] Hematocrit (Bld) [Volume fraction] 40.2 % Normal 34.0-46.0 [facility] Comment on above: Performed By: #### 2 [id number] #### [facility] [address] [place] [address] Hemoglobin (Bld) [Mass/Vol] 13.6 g/dL Normal 12.0-16.0 [facility] Comment on above: Performed By: #### 2 [id number] #### [facility] [address] [place] [address] Lymph Absolute 1.4 E9/L Normal 1.0-4.0 [facility] Comment on above: Performed By: #### 2 [id number] #### [facility] [address] [place] [address] Lymphocytes/100 WBC (Bld) 16.5 % Normal 14.0-50.0 [facility] Comment on above: Performed By: #### 2 [id number] #### [facility] [address] [place] [address] MCH (RBC) [Entitic mass] 32.6 pg Normal 27.0-34.0 [facility] Comment on above: Performed By: #### 2 [id number] #### [facility] [address] [place] [address] MCHC (RBC) [Mass/Vol] 33.8 g/dL Normal 31.4-36.0 [facility] Comment on above: Performed By: #### 2 [id number] #### [facility] [address] [place] [address] MCV (RBC) [Entitic vol] 96.4 fL Normal 80.0-100.0 [facility] Comment on above: Performed By: #### 2 [id number] #### [facility] [address] [place] [address] Ben[place] Absolute 0.5 E9/L Normal 0.2-1.0 [facility] Comment on above: Performed By: #### 2 [id number] #### [facility] [address] [place] [address] Monocytes/100 WBC (Bld) 5.7 % Normal 4.0-14.0 [facility] Comment on above: Performed By: #### 2 [id number] #### [facility] [address] [place] [address] Neutro Absolute 6.5 E9/L Normal 2.0-7.5 [facility] Comment on above: Performed By: #### 2 [id number] #### [facility] [address] [place] [address] Neutro Auto 77.3 % High 36.0-75.0 [facility] Comment on above: Performed By: #### 2 [id number] #### [facility] [address] [place] [address] Platelet 350.0 E9/L Normal 150.0-500.0 [facility] Comment on above: Performed By: #### 2 [id number] #### [facility] [address] [place] [address] Platelet mean volume (Bld) [Entitic vol] 9.3 fL Normal 6.4-10.8 [facility] Comment on above: Performed By: #### 2 [id number] #### [facility] [address] [place] [address] RBC 4.2 E12/L Low 4.3-5.9 [facility] Comment on above: Performed By: #### 2 [id number] #### [facility] [address] [place] [address] WBC 8.4 E9/L Normal 4.0-11.0 [facility] Comment on above: Performed By: #### 2 [id number] #### [facility] [address] [place] [address] CHEMISTRYOrdered By: SYSTEM SYSTEM on 02-17-2025 Albumin [...] Sensitivity Troponin I Instructions For Use, Carter Christopher, April 2018) Urea nitrogen [Mass/Vol] 11 mg/dL Normal 5 - 21 mg/dL Remisol Chem Urea nitrogen/Creatinine [Mass ratio] 16 mg/mg Normal 10 - 20 Remisol Chem COAGULATIONOrdered By: Peng Kahn on 02-17-2025 aPTT Coag (PPP) [Time] 30.7 s Normal 25.1 - 36.5 second(s) [facility] Auto Coag Comment on above: Interpretive Data: P maryellenmetpierce 15 days - 4 weeks 1 - [...] the same coagulation reagent and instrumentation as [facility]. Currently there are no coagulation studies available worldwide for children to 14 days, and no normal ranges. Heparin therapeutic range (represented by Anti-Factor Xa activity of 0.2 - 0.4 U/mL) corresponds to PTT of 56.6 - 109.0 sec. INR Coag (PPP) [Relative time] 0.88 {INR} Invalid Interpretation Code [facility] Auto Coag Comment on above: Interpretive Data: I NR results are specifically intended to assess patients stabilized on long-term Anticoagulation therapy suggested INR s Less Intensive Anticoagulation 2.0 3.0 Conventional Range 3.0 4.5 PT Coag (PPP) [Time] 9.8 s Normal 9.4 - 1 2.5 second(s) [facility] Auto Coag Comment on above: Interpretive Data: [...] the same coagulation reagent and instrumentation as [facility]. Currently there are no coagulation studies available worldwide for children to 14 days, and no normal ranges. ED Clinical Summaryon 2024 ED Clinical Summary ED Clinical Summary [place] [address] ED Clinical Summary Person Information Name: SHAZIA CHOU [place] Age: 34 Years : 1990 Sex: Female Language: Cymro PCP: Jennie Durand DO Marital Status: Phone: [phone] Visit Id: Visit Reason: Headache; Cough; Dizziness; [...] 02/17/2025 21:08:51 02/17/2025 21:08:51 02/17/2025 21:08:51 ADDRESS: [address] [place] [phone] PHYS DOC NOTES: MEDICAL INFORMATION: Prescriptions Given: New Medications [id number], [address], [place] [id number], [phone] brompheniramine/dextrom ethorphan/PSE (Bromfed DM oral syrup) 10 [...] Adult Follow up: With: Address: When: Jennie Schilling Mic Robertson C, [address] [address] [facility] (1) In 3 days 02/20/2025 DIAGNOSIS: Bronchitis; Cough; Dizziness; Vasovagal near syncope Normal [facility] ED Patient Summaryon 025 ED Patient Summary ED Patient Summary [address] [address] Patient Discharge Instructions Person Information Name: SHAZIA CHOU Age: 34 Years Arrival Date: 02/17/2025 18:53:55 Discharge Diagnosis: Bronchitis; Cough; Dizziness; Vasovagal near syncope Primary Care Physician: Jennie Durand DO Provider Information Primary Provider: Bakari Chester DO Advanced Bus Greaser:Ben Garber PA-C. The exam and treatment you received in the Emergency Department were for an urgent problem and are not intended as complete care. It is important that you follow up with a doctor, nurse practitioner, or physician???s curriculum assistant principal for ongoing care. If your symptoms become worse or you do not improve as expected and you are unable to reach your usual health care provider, you should return to the Emergency Department. We are available 24 hours a day. SHAZIA CHOU has been given the following list of patient education materials, prescriptions and follow-up instructions: Follow-up Instructions: With: Address: When: Jennie Montoya Mic Townsend, [address] [place] [address] [facility] (1) In 3 days 02/20/2025 In the event that this physician does not participate in your insurance network, please consult with your insurance company to find a nearby participating provider. Patient Education Materials: Near-Syncope; Acute Bronchitis, Adult A MESSAGE TO ALL PATIENTS REGARDING OPIOIDS PRESCRIPTION OPIOIDS: WHAT YOU NEED TO KNOW Prescription opioids can be used to help relieve qzvbzzot-xd-cptzqs pain and are often prescribed following a [...] be struggli (more content not included)... Normal [facility] HEMATOLOGYOrdered By: SYSTEM SYSTEM on 02-17-2025 Basophils/100 [...] 02-17-2025 Albumin [Mass/Vol] 4.5 g/dL Normal 3.3-5.0 [facility] Comment on above: Performed By: #### 2 [id number] #### [facility] [address] [place] [address] Albumin/Globulin [Mass ratio] 1.5 {ratio} Normal 1.1-2.2 [facility] Comment on above: Performed By: #### 2 [id number] #### [facility] [address] [place] [address] Alk Phos 55 Int._Unit/L Normal 21-98 [facility] Comment on above: Performed By: #### 2 [id number] #### [facility] [address] [place] [address] ALT 12 Int._Unit/L Normal 6-46 [facility] Comment on above: Performed By: #### 2 [id number] #### [facility] [address] [place] [address] AST 17 Int._Unit/L Normal 5-43 [facility] Comment on above: Performed By: #### 2 [id number] #### [facility] [address] [place] [address] Bili Direct 0.1 mg/dL Normal 0.0-0.4 [facility] Comment on above: Performed By: #### 2 [id number] #### [facility] [address] [place] [address] Bili Indirect 0.3 mg/dL Normal 0.1-0.9 [facility] Comment on above: Performed By: #### 2 [id number] #### [facility] [address] [place] [address] Bili Total 0.4 mg/dL Normal 0.0-1.1 [facility] Comment on above: Performed By: #### 2 [id number] #### [facility] [address] [place] [address] Globulin (S) [Mass/Vol] 3.0 g/dL Normal 1.4-4.0 [facility] Comment on above: Performed By: #### 2 [id number] #### [facility] [address] [place] [address] Protein [Mass/Vol] 7.5 g/dL Normal 6.0-7.8 [facility] Comment on above: Performed By: #### 2 [id number] #### [facility] [address] [place] [address] Magnesiumon 02-17-2025 Magnesium [Mass/Vol] 1.8 mg/dL Normal 1.3-2.4 [facility] Comment on above: Performed By: #### 2 [id number] #### [facility] [address] [place] [address] PT & PTTon 02-17-2025 INR Coag (PPP) [Relative time] 0.88 {INR} Invalid Interpretation Code [facility] Comment on above: Result Comment: INR results are specifically intended to assess patients stabilized on long-term Anticoagulation therapy suggested INR???s ???Less Intensive Anticoagulation??? 2.0 ??? 3.0 Conventional Range 3.0 ??? 4.5 Performed By: #### 1 [id number] #### [facility] [address] [place] [address] PT 9.8 second(s) Normal 9.4-12.5 [facility] Comment on above: Result Comment: 15 d [...] the same coagulation reagent and instrumentation as [facility]. Currently there are no coagulation studies available worldwide for children to 14 days, and no normal ranges. Performed By: #### 1 [id number] #### [facility] [address] [place] [address] PTT 30.7 second(s) Normal 25.1-36.5 [facility] Comment on above: Result [...] the same coagulation reagent and instrumentation as [facility]. Currently there are no coagulation studies available worldwide for children to 14 days, and no normal ranges. Heparin therapeutic range (represented by Anti-Factor Xa activity of 0.2 - 0.4 U/mL) corresponds to PTT of 56.6 - 109.0 sec. Performed By: #### 1 [id number] #### [facility] [address] [place] [address] Pre-Arrival Noteon Pre-Arrival Note Pre-Arrival Note Pre-Arrival Summary Name: , EDUARDA Current Date: 02/17/2025 18:54:29 EDT Gender: Female Date of : Age: 34 Pre-Arrival Type: EMS ETA: 02/17/2025 19:10:00 EDT Primary Care Physician: Presenting Problem: dizziness Pre-Arrival User: Libby Marin RN Referring Source: Location: ID Completion Date/Time: 02/17/2025 18:40:00 [facility] Emergency Department Pre-Hospital Report Form Vital Signs: Pre-Hospital Report: Treatment in Route: Response to Treatment: Misc. Issues: Normal [facility] Troponin 0 Hr.on 02-17-2025 Troponin HS <2.30 Low 10.10-27.10 [facility] Comment on above: Result Comment: The 95% CI (Confidence Interval) PPV (Positive Predictive Value) for myocardial infarction in females is 38 pg/mL, in males 51 pg/mL. The results should be used in conjunction with clinical conditions of myocardial infarction. (Access High Sensitivity Troponin I Instructions For Use, Carter [place], April 2018) Performed By: #### 1 [id number] #### [facility] [address] [place] [address] UA with Cult Rflxon 02-18-20 25 Color (U) Light-Yellow Normal Yellow [facility] Comment on above: Result Comment: Micr oscopic readings are only performed on those samples that meet specific criteria set forth by [facility]. Performed By: #### 4 [id number] #### [facility] [address] [place] [address] Glucose (U) [Mass/Vol] Negative Normal Negative [facility] Comment on above: Performed By: #### 4 [id number] #### [facility] [address] [place] [address] Ketones Ql (U) Negative Normal Negative [facility] Comment on above: Performed By: #### 4 [id number] #### [facility] [address] [place] [address] UA Blood Negative Normal Negative [facility] Comment on above: Performed By: #### 4 [id number] #### [facility] [address] [place] [address] UA Bacteria Trace Normal Trace [facility] Comment on above: Performed By: #### 4 [id number] #### [facility] [address] [place] [address] UA Clarity Clear Normal Clear [facility] Comment on above: Performed By: #### 4 [id number] #### [facility] [address] [place] [address] UA Leuk Est 25 Keven/uL Normal Negative [facility] Comment on above: Performed By: #### 4 [id number] #### [facility] [address] [place] [address] UA Mucous Negative Normal Negative [facility] Comment on above: Performed By: #### 4 [id number] #### [facility] [address] [place] [address] UA Nitrite Negative Normal Negative [facility] Comment on above: Performed By: #### 4 [id number] #### [facility] [address] [place] [address] UA pH 7.5 Invalid Interpretation Code 5.0-9.0 [facility] Comment on above: Performed By: #### 4 [id number] #### [facility] [address] [place] [address] UA Protein Negative Normal Negative [facility] Comment on above: Performed By: #### 4 [id number] #### [facility] [address] [place] [address] UA RBC 0-3 Normal 0-3 [facility] Comment on above: Performed By: #### 4 [id number] #### [facility] [address] [place] [address] UA Spec Grav 1.006 Invalid Interpretation Code 1.005-1.030 [facility] Comment on above: Performed By: #### 4 [id number] #### [facility] [address] [place] [address] UA Squam Epithelial 3-4 Invalid Interpretation Code [facility] Comment on above: Performed By: #### 4 [id number] #### [facility] [address] [place] [address] UA Transitional Epithelial 0-2 Normal 0-2 [facility] Comment on above: Performed By: #### 4 [id number] #### [facility] [address] [place] [address] UA Urobilinogen Negative Normal Negative [facility] Comment on above: Performed By: #### 4 [id number] #### [facility] [address] [place] [address] UA WBC 0-5 Normal 0-5 [facility] Comment on above: Performed By: #### 4 [id number] #### [facility] [address] [place] [address] Urobilinogen (U) [Mass/Vol] Negative Normal Negative [facility] Comment on above: Performed By: #### 4 [id number] #### [facility] [address] [place] [address] UA Spec Desc Clean Catch Normal [facility] Comment on above: Performed By: #### 4 [id number] #### [facility] [address] [place] [address] URINALYSISOrdered By: SYSTEM SYSTEM on 02-17-2025 Bacteria [...] that meet specific criteria set forth by [facility]. Epithelial cells.squamous Auto (Urine sed) [#/Area] [...] Urobilinogen (U) [Mass/Vol] Negative Normal Negativemg/d L [facility] UA Auto SS WBC Auto (Urine sed) [#/Area] 0-5 graded/HPF Normal 0-5graded/HP F [facility] UA Auto SS URINALYSISOrdered By: Ben Garber on 02-17-2025 UA Spec Desc Clean Catch (02/17/25 7:24 PM) Normal [facility] UA Auto SS eGFRon 02-17-2025 eGFR 115 mL/min/1.73 m2 Normal >=59 [facility] Comment on above: Performed By: #### 1 [id number] #### [facility] [address] [place] [address] Heart and Vascular Office/Cl inic Noteon 02-16-2025 [...] beat which represents less than 0.01%. 7. MI interval 0.15 second, QRS 0.10 second, QT [...] Foot, Gastric (more content not included)... Normal [facility] Comment on above: Result Comment: Elec tronically [...] Snyder MD Transcribed by: MARCO Technologist: MELYSSA [facility] Holter Monitoron 02-13-2025 Holter Monitor Holter [...] beat which represents less than 0.01%. 7. MI interval 0.15 second, QRS 0.10 second, QT 0.40 second at heart rate of 64 beats per minute. READ BY: terrell Hernandez Dictated: 02/10/2025 [id number] Transcribed: 02/13/2025 [facility] Comment on above: Result Comment: Elec tronically Signed By: Fernandez Daniels MD\.br\Date and Time Signed: 02/13/25 18:05 EDT Main OR Intraoperative Recor don 01-24-2025 Main OR Intraoperative Record Main OR Intraoperative Record IntraOp Document Type FTPM Summary Primary Physician: Babar Mayers DO Finalized Date/Time: 01/24/25 09:58:05 Pt. Name: SHAZIA CHOU/Sex: 1990 Female Med Rec #: [id number] Physician: Babar Mayers DO Financial #: [id number] Pt. Type: P Room/Bed: / Admit/Disch: 01/24/25 [...] Corby Blue Role Performed Surgeon - Primary Drywall Contractor - Primary Scrub - Primary Time In 01/24/25 09:48:00 01/24/25 09:48:00 01/24/25 09:48:00 Time Out 01/24/25 09:58:00 01/24/25 09:58:00 01/24/25 09:58:00 Procedure MEDIAL BRANCH MEDIAL BRANCH MEDIAL BRANCH BLOCK(Bilateral) BLOCK(Bilateral) BLOCK(Bilateral) Comments Last Modified By: Nolvia Rodas RN, RN, [place] A Pritchard RN, [place] A 01/24/25 09:57:49 01/24/25 09:57:49 01/24/25 09:57:49 Entry 4 Case Attendee Jennie Hurtado Role Performed Cattle Killer Time In 01/24/25 09:48:00 Time Out 01/24/25 [...] Time Out Nolvia Rodas RN, Harvey RN, Corby Blue, Babar Mayers DO, Ott, Amy Time Out Complete 01/24/25 09:51:00 Outcomes Met? [...] and tissue Entry 1 Skin Integrity Intact, [place], Warm, & Skin Abnormality No Dry Outcomes [...] ROLLE, Vu (more content not included)... Normal [facility] Main OR Preoperative Recordo n 01-24-2025 Main OR Preoperative Record Main OR Preoperative Record Holding Area Document Type FTPM Summary Primary Physician: Babar Mayers DO Finalized Date/Time: 01/24/25 08:43:59 Pt. Name: SHAZIA CHOU Valentina/Sex: 1990 Female Med Rec #: [id number] Physician: Babar Mayers DO Financial #: [id number] Pt. Type: P Room/Bed: / Admit/Disch: 01/24/25 [...] By: Gabrielle Sultana RN 01/24/25 08:43 Normal [facility] MR head/brain wo/w conon MR head/brain wo/w con [facility] [place] [address] MRI Report Signed Patient: Shazia Chou MR#: [id number] : 1990 Acct:[id number] Age/Sex: 33 / F ADM Date: 12/16/24 Loc: MR Room: Type: [facility] Attending Dr: Corby Larsen DO Copies to: [...] Denny Escalante M.D.12/16/2024 2:50 PM Dictation Location: [place] [address] Transcribed By: [facility] 12/16/24 1303 Dictated By: Denny Escalante MD 12/16/24 1404 Signed By: 12/16/24 6623 Normal [facility] Magnetic resonance imaging r eportOrdered By: Denny Escalante on 12-16-2024 Study report [facility] Main [address] [address] MRI Report Signed Patient: Shazia Chou MR#: [id number] : 1990 Acct:[id number] Age/Sex: 33 / F ADM Date: 5 Loc: MR Room: Type: [facility] Attending Dr: Corby Larsen DO Copies to: [...] Denny Escalante M.D.12/16/2024 2:50 PM Dictation Location: [place] [address] Transcribed By: [facility] 12/16/24 145 Dictated By: Denny Escalante MD 12/16/24 1404 Signed By: 12/16/24 [facility] Work Phone: XR Spine Lumbar Complete [...] MD Transcribed by: MARCO Technologist: CHAN Walters [facility] 24 hour urine albumin/total protein ratio by electrophoresisOrdered By: Jacob Baker on 12-12-2024 Albumin Elph (24H U) [Mass fraction] Albumin/Protein.total in 24 hour Urine by Electrophoresis . [facility] 24 hour urine gamma globulin /total protein ratio by electrophoresisOrdered By: Jacob Baker on 12-12-2024 Gamma globulin Elph (24H U) [Mass fraction] Gamma globulin/Protein.total in 24 hour Urine by Electrophoresis . [facility] 24 hour urine protein monocl onal/total protein by electrophoresisOrdered By: Jacob Baker on 12-12-2024 Protein.monoclonal Elph (24H U) [Mass fraction] Protein.monoclonal/Prot ein.total in 24 hour Urine by Electrophoresis Not Observed [facility] CYNDI Antinuclear Antibodieson 12-12-2024 Antinuclear Abs, IFA Negative Normal . [facility] Comment on above: Result Comment: Nega tive <1:80 Borderline 1:80 Positive >1:80 ICAP nomenclature: AC-0 For more information about Hep-2 cell patterns use ANApatterns.org, the official website for the International Consensus on Antinuclear Antibody (CYNDI) Patterns (ICAP). Performed at: [place] [facility] [place] [id number] Supervisor [employer]: Santy Storey PhD, Phone: [phone] Performed By: #### M G, ESR, CMP, HS TROP, PTT, TSH3, T4F, ETOH, PT #### [address] Result Comment: Nega tive <1:80 Borderline 1:80 Positive >1:80 ICAP nomenclature: AC-0 For more information about Hep-2 cell patterns use ANApatterns.org, the official website for the International Consensus on Antinuclear Antibody (CYNDI) Patterns (ICAP). Performed at: [address] [id number] Supervisor [employer]: Santy Storey PhD, Phone: [phone] PERFORMED BY: [place] [address] PATHOLOGIST SILICA FILTER OPERATOR CARLOS KNAPP M.D. Alanine aminotransferase [En zymatic activity/volume] in Serum or PlasmaOrdered By: Jacob Baker on 12-12-2024 ALT [Catalytic activity/Vol] Alanine aminotransferase [Enzymatic activity/volume] in Serum or Plasma [facility] Albumin [Mass/volume] in Ser um or Plasma by Bromocresol green (BCG) dye binding methoOrdered By: Jacob Baker on 12-12-2024 Albumin BCG dye [Mass/Vol] Albumin [Mass/volume] in Serum or Plasma by Bromocresol green (BCG) dye binding metho 3.5-5.7 [facility] Alkaline phosphatase [Enzyma tic activity/volume] in Serum or PlasmaOrdered By: Jacob Baker on 12-12-2024 ALP [Catalytic activity/Vol] Alkaline phosphatase [Enzymatic activity/volume] in Serum or Plasma 34-104 [facility] Anti-Centromere B Antibodies on 12-12-2024 Anti-Centromere B Antibodies <0.2 Normal 0.0-0.9 [facility] Comment on above: Result Comment: Perf ormed at: [address] [id number] Supervisor [employer]: Santy Storey PhD, Phone: [phone] Performed By: #### M G, ESR, CMP, HS TROP, PTT, TSH3, T4F, ETOH, PT #### [place] [address] [place] Anti-RNPon 12-12-2024 Anti-RESEARCH CONTRACTS SUPERVISOR <0.2 Normal 0.0-0.9 [facility] Comment on above: Performed By: #### M G, ESR, CMP, HS TROP, PTT, TSH3, T4F, ETOH, PT #### [place] [address] [place] Anti-Helm Antibodieson 03- Anti-Helm Antibodies <0.2 Normal 0.0-0.9 [facility] Comment on above: Performed By: #### M G, ESR, CMP, HS TROP, PTT, TSH3, T4F, ETOH, PT #### [address] Anti-dsDNA(DBL)Abon 12-13-19 25 Anti-dsDNA(DBL)Ab 1 [IU]/mL Normal 0-9 [facility] Comment on above: Result Comment: Nega tive <5 Equivocal 5 - 9 Positive >9 Performed By: #### M G, ESR, CMP, HS TROP, PTT, TSH3, T4F, ETOH, PT #### [facility] [address] [place] [address] [place] Anticardiolipin IgG/M/A, Qno n 12-12-2024 Anticardiolipin Ab, IgA,Qn <9 Normal 0-11 [facility] Comment on above: Result Comment: Nega tive: <12 Indeterminate: 12 - 20 Low-Med Positive: >20 - 80 High Positive: >80 Performed By: #### M G, ESR, CMP, HS TROP, PTT, TSH3, T4F, ETOH, PT #### [facility] [address] [place] [address] [place] Anticardiolipin Ab, IgG,Qn <9 Normal 0-14 [facility] Comment on above: Result Comment: Nega tive: <15 Indeterminate: 15 - 20 Low-Med Positive: >20 - 80 High Positive: >80 Performed By: #### M G, ESR, CMP, HS TROP, PTT, TSH3, T4F, ETOH, PT #### [facility] [address] [place] [address] [place] Anticardiolipin Ab, IgM,Qn <9 Normal 0-12 [facility] Comment on above: Result Comment: Nega tive: <13 Indeterminate: 13 - 20 Low-Med Positive: >20 - 80 High Positive: >80 Performed By: #### M G, ESR, CMP, HS TROP, PTT, TSH3, T4F, ETOH, PT #### [address] [place] [address] [facility] Appearance of UrineOrdered B y: Jacob Baker on 12-12-2024 Appearance (U) Urine appearance Clear [facility] Aspartate aminotransferase [ Enzymatic activity/volume] in Serum or PlasmaOrdered By: Jacob Baker on 12-12-2024 AST [Catalytic activity/Vol] Aspartate aminotransferase [Enzymatic activity/volume] in Serum or Plasma 13-39 [facility] Bacteria [Presence] in Urine by AutomatedOrdered By: Jacob Baker on 12-12-2024 Bacteria Auto Ql (U) Bacteria [Presence] in Urine by Automated None Seen [facility] Basophils Auto (Bld) [#/Vol] Ordered By: Jacob Baker on 12-12-2024 Basophils (Bld) [#/Vol] Automated basophil count 0.0-0.2 [facility] Basophils/100 WBC Auto (Bld) Ordered By: Jacob Baker on 12-12-2024 Basophils/100 WBC (Bld) Automated basophil % . [facility] Beta 2 Glycoprotein I Ab IgG /Mon 12-12-2024 Beta 2 Glycoprotein I Ab, IgG <9 Normal 0-20 [facility] Comment on above: Result Comment: Resu lt Units: GPI IgG units The reference interval reflects a 3SD or 99th percentile interval, which is thought to represent a potentially clinically significant result in accordance with the International Consensus Statement on the classification criteria for definitive antiphospholipid syndrome (APS). J Thromb Haem 2006;4:295-306. Performed By: #### M G, ESR, CMP, HS TROP, PTT, TSH3, T4F, ETOH, PT #### [facility] [address] [id number] [facility] Beta 2 Glycoprotein I Ab, IgM <9 Normal 0-32 [facility] Comment on above: Result Comment: Resu lt Units: GPI IgM units The reference interval reflects a 3SD or 99th percentile interval, which is thought to represent a potentially clinically significant result in accordance with the International Consensus Statement on the classification criteria for definitive antiphospholipid syndrome (APS). J Thromb Haem 2006;4:295-306. Performed at: [facility] [address] [id number] Supervisor [employer]: Santy Storey PhD, Phone: [phone] Performed By: #### M G, ESR, CMP, HS TROP, PTT, TSH3, T4F, ETOH, PT #### [facility] [address] Beta 2 glycoprotein 1 IgG Ab [Units/volume] in SerumOrdered By: Jacob Baker on 12-12-2024 Beta 2 glycoprotein 1 IgG Qn (S) Beta 2 glycoprotein 1 IgG Ab [Units/volume] in Serum 0-20 [facility] Comment on above: Result Units: GPI [...] [Presence] in Urine by Test strip Negative [facility] Bilirubin.total [Mass/volume ] in Serum or PlasmaOrdered By: Jacob Baker on 12-12-2024 Bilirubin [Mass/Vol] Bilirubin.total [Mass/volume] in Serum or Plasma 0.3-1.0 [facility] C reactive protein [Mass/vol ume] in Serum or PlasmaOrdered By: Jacob Baker on 12-12-2024 CRP [Mass/Vol] C reactive protein [Mass/volume] in Serum or Plasma 0.0-0.5 [facility] C-Reactive Proteinon 025 CRP [Mass/Vol] mg/L Normal 0.0-0.5 [facility] Comment on above: Performed By: #### T SH3, ESR, ADDONUAPLUS, PP, CRP, T4F, CMP, CK, CBC ####[facility] [id number]#### ALDOLASE, UPE RAND, MYOG, SPE, SYMONE,URINE, RPR W RFX, SYMONE SERUM ####[facility] , Calcium [Mass/volume] in Ser um or PlasmaOrdered By: Jacob Baker on 12-12-2024 Calcium [Mass/Vol] Calcium [Mass/volume ] in Serum or Plasma 8.6-10.3 [facility] Carbon dioxide, total [Moles /volume] in Serum or PlasmaOrdered By: Jacob Baker on 12-12-2024 CO2 [Moles/Vol] Carbon dioxide, tota l [Moles/volume] in Serum or Plasma 21.0-31.0 [facility] Chloride [Moles/volume] in S tushar or PlasmaOrdered By: Jacob Baker on 12-12-2024 Chloride [Moles/Vol] Chloride [Moles/vol ume] in Serum or Plasma 98-107 [facility] Chromatin Antibodyon 025 Chromatin Antibody <0.2 Normal 0.0-0.9 [facility] Comment on above: Result Comment: PERF ORMED BY: [address] [place] [address] PATHOLOGIST SILICA FILTER OPERATOR CARLOS KNAPP M.D. Performed By: #### M G, ESR, CMP, HS TROP, PTT, TSH3, T4F, ETOH, PT #### [facility] [address] Coagulation Profileon 2024 aPTT Coag (Bld) [Time] 29.5 s Normal 25.1-36.5 Th e [facility] Comment on above: Result Comment: A he matocrit value greater than 55% may lead to inaccurate results in coagulation testing. Patients having hematocrit values >55% require a special collection tube for coagulation studies. Please contact the laboratory at [phone] for redraw instructions. PERFORMED BY: [facility] [address] [place] [address] PATHOLOGIST SILICA FILTER OPERATOR CARLOS KNAPP M.D. Performed By: #### T SH3, ESR, ADDONUAPLUS, PP, CRP, T4F, CMP, CK, CBC ####[facility] [id number]#### ALDOLASE, UPE RAND, MYOG, SPE, SYMONE,URINE, RPR W RFX, SYMONE SERUM ####[facility] , INR Coag (PPP) [Relative time] 0.8 {INR} Normal [facility] Comment on above: Result Comment: [...] valves: 3 - 4.5 Performed By: #### T SH3, ESR, ADDONUAPLUS, PP, CRP, T4F, CMP, CK, CBC ####[facility] [id number] [address]#### ALDOLASE, UPE RAND, MYOG, SPE, SYMONE,URINE, RPR W RFX, SYMONE SERUM ####[facility] , PT Coag (PPP) [Time] 9.6 s Normal 9.0-12.9 [facility] Comment on above: Result Comment: A he matocrit value greater than 55% may lead to inaccurate results in coagulation testing. Patients having hematocrit values >55% require a special collection tube for coagulation studies. Please contact the laboratory at [phone] for redraw instructions. Performed By: #### T SH3, ESR, ADDONUAPLUS, PP, CRP, T4F, CMP, CK, CBC ####[facility] [id number]#### ALDOLASE, UPE RAND, MYOG, SPE, SYMONE,URINE, RPR W RFX, SYMONE SERUM ####[facility] , Color Auto (U)Ordered By: Stephany Baker on 12-12-2024 Color (U) Color of Urine by Auto Yellow [facility] Complement C3on 12-12-2024 Complement C3 133 mg/dL Normal 82-167 [facility] Comment on above: Performed By: #### M G, ESR, CMP, HS TROP, PTT, TSH3, T4F, ETOH, PT #### [facility] [address] Complement C4on 12-12-2024 Complement C4 23 mg/dL Normal 12-38 [facility] Comment on above: Performed By: #### M G, ESR, CMP, HS TROP, PTT, TSH3, T4F, ETOH, PT #### [facility] [address] Complement Total (CH50)on Complement Total (CH50) >60 Normal >41 [facility] Comment on above: Result Comment: [...] out of range values. Performed at: - [facility] [address] [id number] Supervisor [employer]: Santy Storey PhD, Phone: [phone] PERFORMED BY: [place] [address] PATHOLOGIST SILICA FILTER OPERATOR CARLOS KNAPP M.D. Performed By: #### A DNA, SJOGRENS, HELM, C3, HISAB, CCP, CHROMATIN, CENTROME, RA, CYNDI, MLO90UR, JO1, B2 GLYPROT, ANTIR, CARDIO GMA, C4, CH50 ####[facility] , Complete Blood Count Auto Di ffon 12-12-2024 Basophils (Bld) [#/Vol] 0.1 10*3/uL Normal 0.0-0.2 [facility] Comment on above: Performed By: #### T SH3, ESR, ADDONUAPLUS, PP, CRP, T4F, CMP, CK, CBC ####[facility] [id number]#### ALDOLASE, UPE RAND, MYOG, SPE, SYMONE,URINE, RPR W RFX, SYMONE SERUM ####[facility] , Basophils/100 WBC (Bld) 0.8 % Normal . [facility] Comment on above: Performed By: #### T SH3, ESR, ADDONUAPLUS, PP, CRP, T4F, CMP, CK, CBC ####[address]#### ALDOLASE, UPE RAND, MYOG, SPE, SYMONE,URINE, RPR W RFX, SYMONE SERUM ####[facility] , Eosinophils (Bld) [#/Vol] 0.2 10*3/uL Normal 0.0-0.45 [facility] Comment on above: Performed By: #### T SH3, ESR, ADDONUAPLUS, PP, CRP, T4F, CMP, CK, CBC ####[address]#### ALDOLASE, UPE RAND, MYOG, SPE, SYMONE,URINE, RPR W RFX, SYMONE SERUM ####[facility] , Eosinophils/100 WBC (Bld) 2.0 % Normal . [facility] Comment on above: Performed By: #### T SH3, ESR, ADDONUAPLUS, PP, CRP, T4F, CMP, CK, CBC ####[address]#### ALDOLASE, UPE RAND, MYOG, SPE, SYMONE,URINE, RPR W RFX, SYMONE SERUM ####[facility] , Erythrocyte distribution width (RBC) [Ratio] 15.3 % Normal 11.9-15.3 [facility] Comment on above: Performed By: #### T SH3, ESR, ADDONUAPLUS, PP, CRP, T4F, CMP, CK, CBC ####[address]#### ALDOLASE, UPE RAND, MYOG, SPE, SYMONE,URINE, RPR W RFX, SYMONE SERUM ####[facility] , Hematocrit (Bld) [Volume fraction] 40.4 % Normal 34.0-46.4 [facility] Comment on above: Performed By: #### T SH3, ESR, ADDONUAPLUS, PP, CRP, T4F, CMP, CK, CBC ####[address]#### ALDOLASE, UPE RAND, MYOG, SPE, SYMONE,URINE, RPR W RFX, SYMONE SERUM ####[facility] , Hemoglobin (Bld) [Mass/Vol] 13.6 g/dL Normal 11.8-15.4 [facility] Comment on above: Performed By: #### T SH3, ESR, ADDONUAPLUS, PP, CRP, T4F, CMP, CK, CBC ####[address]#### ALDOLASE, UPE RAND, MYOG, SPE, SYMONE,URINE, RPR W RFX, SYMONE SERUM ####[facility] , Lymphocytes (Bld) [#/Vol] 1.8 10*3/uL Normal 1.00-4.8 [facility] Comment on above: Performed By: #### T SH3, ESR, ADDONUAPLUS, PP, CRP, T4F, CMP, CK, CBC ####[place] [address] [place]#### ALDOLASE, UPE RAND, MYOG, SPE, SYMONE,URINE, RPR W RFX, SYMONE SERUM ####[facility] , Lymphocytes/100 WBC (Bld) 18.1 % Normal . [facility] Comment on above: Performed By: #### T SH3, ESR, ADDONUAPLUS, PP, CRP, T4F, CMP, CK, CBC ####[address]#### ALDOLASE, UPE RAND, MYOG, SPE, SYMONE,URINE, RPR W RFX, SYMONE SERUM ####[facility] , MCH (RBC) [Entitic mass] 33.1 pg Normal 24.7-34.3 [facility] Comment on above: Performed By: #### T SH3, ESR, ADDONUAPLUS, PP, CRP, T4F, CMP, CK, CBC ####[address]#### ALDOLASE, UPE RAND, MYOG, SPE, SYMONE,URINE, RPR W RFX, SYMONE SERUM ####[facility] , MCV (RBC) [Entitic vol] 98.2 fL Normal 80-100 [facility] Comment on above: Performed By: #### T SH3, ESR, ADDONUAPLUS, PP, CRP, T4F, CMP, CK, CBC ####[address]#### ALDOLASE, UPE RAND, MYOG, SPE, SYMONE,URINE, RPR W RFX, SYMONE SERUM ####[facility] , Mean Corpuscular HGB Conc 33.7 g/dL Normal 32.0-35.0 [facility] Comment on above: Performed By: #### T SH3, ESR, ADDONUAPLUS, PP, CRP, T4F, CMP, CK, CBC ####[address]#### ALDOLASE, UPE RAND, MYOG, SPE, SYMONE,URINE, RPR W RFX, SYMONE SERUM ####[facility] , Monocytes (Bld) [#/Vol] 0.7 10*3/uL Normal 0.0-0.8 [facility] Comment on above: Performed By: #### T SH3, ESR, ADDONUAPLUS, PP, CRP, T4F, CMP, CK, CBC ####[address]#### ALDOLASE, UPE RAND, MYOG, SPE, SYMONE,URINE, RPR W RFX, SYMONE SERUM ####[facility] , Monocytes/100 WBC (Bld) 6.8 % Normal . [facility] Comment on above: Performed By: #### T SH3, ESR, ADDONUAPLUS, PP, CRP, T4F, CMP, CK, CBC ####[address]#### ALDOLASE, UPE RAND, MYOG, SPE, SYMONE,URINE, RPR W RFX, SYMONE SERUM ####[facility] , Neutrophils (Bld) [#/Vol] 7.1 10*3/uL Normal 1.8-7.7 [facility] Comment on above: Performed By: #### T SH3, ESR, ADDONUAPLUS, PP, CRP, T4F, CMP, CK, CBC ####[address]#### ALDOLASE, UPE RAND, MYOG, SPE, SYMONE,URINE, RPR W RFX, SYMONE SERUM ####[facility] , Neutrophils/100 WBC (Bld) 72.3 % Normal . [facility] Comment on above: Performed By: #### T SH3, ESR, ADDONUAPLUS, PP, CRP, T4F, CMP, CK, CBC ####[address]#### ALDOLASE, UPE RAND, MYOG, SPE, SYMONE,URINE, RPR W RFX, SYMONE SERUM ####[facility] , NRBC% 0.0 /100{WBC} Normal 0-0.5 [facility] Comment on above: Performed By: #### T SH3, ESR, ADDONUAPLUS, PP, CRP, T4F, CMP, CK, CBC ####[address]#### ALDOLASE, UPE RAND, MYOG, SPE, SYMONE,URINE, RPR W RFX, SYMONE SERUM ####[facility] , Platelet mean volume (Bld) [Entitic vol] 9.6 fL Normal 6.3-10.7 [facility] Comment on above: Performed By: #### T SH3, ESR, ADDONUAPLUS, PP, CRP, T4F, CMP, CK, CBC ####[place] [id number] [address]#### ALDOLASE, UPE RAND, MYOG, SPE, SYMONE,URINE, RPR W RFX, SYMONE SERUM ####[facility] , Platelets (Bld) [#/Vol] 297 10*3/uL Normal 150-450 [facility] Comment on above: Performed By: #### T SH3, ESR, ADDONUAPLUS, PP, CRP, T4F, CMP, CK, CBC ####[address]#### ALDOLASE, UPE RAND, MYOG, SPE, SYMONE,URINE, RPR W RFX, SYMONE SERUM ####[facility] , RBC (Bld) [#/Vol] 4.11 10*6/uL Normal 3.60-5.00 [facility] Comment on above: Performed By: #### T SH3, ESR, ADDONUAPLUS, PP, CRP, T4F, CMP, CK, CBC ####[place] [address] [place]#### ALDOLASE, UPE RAND, MYOG, SPE, SYMONE,URINE, RPR W RFX, SYMONE SERUM ####[facility] , WBC (Bld) [#/Vol] 9.8 10*3/uL Normal 3.8-11.6 [facility] Comment on above: Performed By: #### T SH3, ESR, ADDONUAPLUS, PP, CRP, T4F, CMP, CK, CBC ####[place] [address] [place]#### ALDOLASE, UPE RAND, MYOG, SPE, SYMONE,URINE, RPR W RFX, SYMONE SERUM ####[facility] , Comprehensive Metabolic Pane jak 12-12-2024 Albumin [Mass/Vol] 4.7 g/dL Normal 3.5-5.7 [facility] Comment on above: Performed By: #### T SH3, ESR, ADDONUAPLUS, PP, CRP, T4F, CMP, CK, CBC ####[address]#### ALDOLASE, UPE RAND, MYOG, SPE, SYMONE,URINE, RPR W RFX, SYMONE SERUM ####[facility] , Albumin/Globulin [Mass ratio] 1.7 {ratio} Normal [facility] Comment on above: Performed By: #### T SH3, ESR, ADDONUAPLUS, PP, CRP, T4F, CMP, CK, CBC ####[address]#### ALDOLASE, UPE RAND, MYOG, SPE, SYMONE,URINE, RPR W RFX, SYMONE SERUM ####[facility] , ALP [Catalytic activity/Vol] 69 U/L Normal 34-104 [facility] Comment on above: Performed By: #### T SH3, ESR, ADDONUAPLUS, PP, CRP, T4F, CMP, CK, CBC ####[address]#### ALDOLASE, UPE RAND, MYOG, SPE, SYMONE,URINE, RPR W RFX, SYMONE SERUM ####[facility] , ALT [Catalytic activity/Vol] 20 U/L Normal 7-52 [facility] Comment on above: Performed By: #### T SH3, ESR, ADDONUAPLUS, PP, CRP, T4F, CMP, CK, CBC ####[address]#### ALDOLASE, UPE RAND, MYOG, SPE, SYMONE,URINE, RPR W RFX, SYMONE SERUM ####[facility] , Anion gap [Moles/Vol] 13.5 mmol/L Normal 6.0-15.0 Th e [facility] Comment on above: Performed By: #### T SH3, ESR, ADDONUAPLUS, PP, CRP, T4F, CMP, CK, CBC ####[address]#### ALDOLASE, UPE RAND, MYOG, SPE, SYMONE,URINE, RPR W RFX, SYMONE SERUM ####[facility] , AST [Catalytic activity/Vol] 23 U/L Normal 13-39 [facility] Comment on above: Performed By: #### T SH3, ESR, ADDONUAPLUS, PP, CRP, T4F, CMP, CK, CBC ####[address]#### ALDOLASE, UPE RAND, MYOG, SPE, SYMONE,URINE, RPR W RFX, SYMONE SERUM ####[facility] , Bilirubin [Mass/Vol] 0.3 mg/dL Normal 0.3-1.0 [facility] Comment on above: Performed By: #### T SH3, ESR, ADDONUAPLUS, PP, CRP, T4F, CMP, CK, CBC ####[address]#### ALDOLASE, UPE RAND, MYOG, SPE, SYMONE,URINE, RPR W RFX, SYMONE SERUM ####[facility] , Calcium [Mass/Vol] 10.3 mg/dL Normal 8.6-10.3 [facility] Comment on above: Performed By: #### T SH3, ESR, ADDONUAPLUS, PP, CRP, T4F, CMP, CK, CBC ####[address]#### ALDOLASE, UPE RAND, MYOG, SPE, SYMONE,URINE, RPR W RFX, SYMONE SERUM ####[facility] , Chloride [Moles/Vol] 103 mmol/L Normal 98-107 [facility] Comment on above: Performed By: #### T SH3, ESR, ADDONUAPLUS, PP, CRP, T4F, CMP, CK, CBC ####[place] [address] [address]#### ALDOLASE, UPE RAND, MYOG, SPE, SYMONE,URINE, RPR W RFX, SYMONE SERUM ####[facility] , CO2 [Moles/Vol] 28.8 mmol/L Normal 21.0-31.0 [facility] Comment on above: Performed By: #### T SH3, ESR, ADDONUAPLUS, PP, CRP, T4F, CMP, CK, CBC ####[address]#### ALDOLASE, UPE RAND, MYOG, SPE, SYMONE,URINE, RPR W RFX, SYMONE SERUM ####[facility] , Creatinine [Mass/Vol] 0.66 mg/dL Normal 0.60-1.20 [facility] Comment on above: Performed By: #### T SH3, ESR, ADDONUAPLUS, PP, CRP, T4F, CMP, CK, CBC ####[address]#### ALDOLASE, UPE RAND, MYOG, SPE, SYMONE,URINE, RPR W RFX, SYMONE SERUM ####[facility] , GFR/1.73 sq M.predicted MDRD (S/P/Bld) [Vol rate/Area] mL/min/{1.73_m2} Normal [facility] Comment on above: Performed By: #### T SH3, ESR, ADDONUAPLUS, PP, CRP, T4F, CMP, CK, CBC ####[address]#### ALDOLASE, UPE RAND, MYOG, SPE, SYMONE,URINE, RPR W RFX, SYMONE SERUM ####[facility] , Globulin (S) [Mass/Vol] 2.8 g/dL Normal [facility] Comment on above: Performed By: #### T SH3, ESR, ADDONUAPLUS, PP, CRP, T4F, CMP, CK, CBC ####[address]#### ALDOLASE, UPE RAND, MYOG, SPE, SYMONE,URINE, RPR W RFX, SYMONE SERUM ####[facility] , Glucose [Mass/Vol] 77 mg/dL Normal 70-100 [facility] Comment on above: Result Comment: [place] Glucose Reference Range is dependent on time and content of last meal. Glucose of more than 200 mg/dL in a nonstressed, ambulatory subject supports the diagnosis of Diabetes Mellitus. ADA recommended reference range Performed By: #### T SH3, ESR, ADDONUAPLUS, PP, CRP, T4F, CMP, CK, CBC ####[address]#### ALDOLASE, UPE RAND, MYOG, SPE, SYMONE,URINE, RPR W RFX, SYMONE SERUM ####[facility] , Potassium [Moles/Vol] 4.3 mmol/L Normal 3.5-5.1 [facility] Comment on above: Performed By: #### T SH3, ESR, ADDONUAPLUS, PP, CRP, T4F, CMP, CK, CBC ####[address]#### ALDOLASE, UPE RAND, MYOG, SPE, SYMONE,URINE, RPR W RFX, SYMONE SERUM ####[facility] , Protein [Mass/Vol] 7.5 g/dL Normal 6.0-8.5 [facility] Comment on above: Performed By: #### T SH3, ESR, ADDONUAPLUS, PP, CRP, T4F, CMP, CK, CBC ####[address]#### ALDOLASE, UPE RAND, MYOG, SPE, SYMONE,URINE, RPR W RFX, SYMONE SERUM ####[facility] , Sodium [Moles/Vol] 141 mmol/L Normal 136-145 [facility] Comment on above: Performed By: #### T SH3, ESR, ADDONUAPLUS, PP, CRP, T4F, CMP, CK, CBC ####[address]#### ALDOLASE, UPE RAND, MYOG, SPE, SYMONE,URINE, RPR W RFX, SYMONE SERUM ####[facility] , Urea nitrogen [Mass/Vol] 12 mg/dL Normal 7-25 [facility] Comment on above: Performed By: #### T SH3, ESR, ADDONUAPLUS, PP, CRP, T4F, CMP, CK, CBC ####[address]#### ALDOLASE, UPE RAND, MYOG, SPE, SYMONE,URINE, RPR W RFX, SYMONE SERUM ####[facility] , Creatine Kinaseon 12-12-2024 CK [Catalytic activity/Vol] 122 U/L Normal 30-223 [facility] Comment on above: Result Comment: PERF ORMED BY: [place] [address] PATHOLOGIST [employer] FILTER OPERATOR CARLOS KNAPP M.D. Performed By: #### T SH3, ESR, ADDONUAPLUS, PP, CRP, T4F, CMP, CK, CBC ####[address]#### ALDOLASE, UPE RAND, MYOG, SPE, SYMONE,URINE, RPR W RFX, SYMONE SERUM ####[facility] , Creatine kinase [Enzymatic a ctivity/volume] in Serum or PlasmaOrdered By: Jacob Baker on 12-12-2024 CK [Catalytic activity/Vol] Creatine kinase [Enzymatic activity/volume] in Serum or Plasma 30-223 [facility] Creatinine [Mass/volume] in Serum or PlasmaOrdered By: Jacob Baker on 12-12-2024 Creatinine [Mass/Vol] Creatinine [Mass/volume] in Serum or Plasma 0.60-1.20 [facility] Cyclic Citrulliated Pep Abon 12-12-2024 Cyclic Citrulliated Pep Ab 7 Normal 0-19 [facility] Comment on above: Result Comment: Nega tive <20 Weak positive 20 - 39 Moderate positive 40 - 59 Strong positive >59 Performed at: - [facility] [address] [id number] Supervisor [employer]: Santy Storey PhD, Phone: [phone] Performed By: #### M G, ESR, CMP, HS TROP, PTT, TSH3, T4F, ETOH, PT #### [facility] [address] DNA double strand Ab [Units/ volume] in SerumOrdered By: Jacob Baker on 12-12-2024 DNA double strand Ab Qn (S) DNA double strand Ab [Units/volume] in Serum 0-9 [facility] Comment on above: Negative <5 Equivoca l 5 - 9 Positive >9 Dipstick and Microscopicon 0 12-12-2024 Appearance (U) Clear Normal Clear [facility] Comment on above: Order Comment: Name Collection Type:: Clean-Voided Midstream Performed By: #### T SH3, ESR, ADDONUAPLUS, PP, CRP, T4F, CMP, CK, CBC ####[facility] [id number]#### ALDOLASE, UPE RAND, MYOG, SPE, SYMONE,URINE, RPR W RFX, SYMONE SERUM ####[facility] , Bacteria,Urine None Seen Normal None Seen [facility] Comment on above: Order Comment: Name Collection Type:: Clean-Voided Midstream Performed By: #### T SH3, ESR, ADDONUAPLUS, PP, CRP, T4F, CMP, CK, CBC ####[address]#### ALDOLASE, UPE RAND, MYOG, SPE, SYMONE,URINE, RPR W RFX, SYMONE SERUM ####[facility] , Bilirubin,Urine Negative Normal Negative [facility] Comment on above: Order Comment: Name Collection Type:: Clean-Voided Midstream Performed By: #### T SH3, ESR, ADDONUAPLUS, PP, CRP, T4F, CMP, CK, CBC ####[address]#### ALDOLASE, UPE RAND, MYOG, SPE, SYMONE,URINE, RPR W RFX, SYMONE SERUM ####[facility] , Color (U) Light-Yellow Normal Yellow [facility] Comment on above: Order Comment: Name Collection Type:: Clean-Voided Midstream Performed By: #### T SH3, ESR, ADDONUAPLUS, PP, CRP, T4F, CMP, CK, CBC ####[address]#### ALDOLASE, UPE RAND, MYOG, SPE, SYMONE,URINE, RPR W RFX, SYMONE SERUM ####[facility] , Glucose Ql (U) Normal Normal Normal [facility] Comment on above: Order Comment: Name Collection Type:: Clean-Voided Midstream Performed By: #### T SH3, ESR, ADDONUAPLUS, PP, CRP, T4F, CMP, CK, CBC ####[address]#### ALDOLASE, UPE RAND, MYOG, SPE, SYMONE,URINE, RPR W RFX, SYMONE SERUM ####[facility] , Hyaline Casts,Urine None Normal 0-8 [facility] Comment on above: Order Comment: Name Collection Type:: Clean-Voided Midstream Performed By: #### T SH3, ESR, ADDONUAPLUS, PP, CRP, T4F, CMP, CK, CBC ####[address]#### ALDOLASE, UPE RAND, MYOG, SPE, SYMONE,URINE, RPR W RFX, SYMONE SERUM ####[facility] , Ketones Ql (U) Negative Normal Negative [facility] Comment on above: Order Comment: Name Collection Type:: Clean-Voided Midstream Performed By: #### T SH3, ESR, ADDONUAPLUS, PP, CRP, T4F, CMP, CK, CBC ####[address]#### ALDOLASE, UPE RAND, MYOG, SPE, SYMONE,URINE, RPR W RFX, SYMONE SERUM ####[facility] , Leukocyte esterase Test strip Ql (U) Negative Normal Negative [facility] Comment on above: Order Comment: Name Collection Type:: Clean-Voided Midstream Performed By: #### T SH3, ESR, ADDONUAPLUS, PP, CRP, T4F, CMP, CK, CBC ####[address]#### ALDOLASE, UPE RAND, MYOG, SPE, SYMONE,URINE, RPR W RFX, SYMONE SERUM ####[facility] , Mucus,Urine Rare Normal [facility] Comment on above: Order Comment: Name Collection Type:: Clean-Voided Midstream Result Comment: PERF ORMED BY: [facility] [address] [place] [address] PATHOLOGIST [employer] OPERATOR CARLOS KNAPP M.D. Performed By: #### T SH3, ESR, ADDONUAPLUS, PP, CRP, T4F, CMP, CK, CBC ####[address]#### ALDOLASE, UPE RAND, MYOG, SPE, SYMONE,URINE, RPR W RFX, SYMONE SERUM ####[facility] , Nitrite,Urine Negative Normal Negative [facility] Comment on above: Order Comment: Name Collection Type:: Clean-Voided Midstream Performed By: #### T SH3, ESR, ADDONUAPLUS, PP, CRP, T4F, CMP, CK, CBC ####[address]#### ALDOLASE, UPE RAND, MYOG, SPE, SYMONE,URINE, RPR W RFX, SYMONE SERUM ####[facility] , Occult Blood,Urine Negative Normal Negative [facility] Comment on above: Order Comment: Name Collection Type:: Clean-Voided Midstream Performed By: #### T SH3, ESR, ADDONUAPLUS, PP, CRP, T4F, CMP, CK, CBC ####[address]#### ALDOLASE, UPE RAND, MYOG, SPE, SYMONE,URINE, RPR W RFX, SYMONE SERUM ####[facility] , pH (U) 6.5 [pH] Normal 5.0-9.0 [facility] Comment on above: Order Comment: Name Collection Type:: Clean-Voided Midstream Performed By: #### T SH3, ESR, ADDONUAPLUS, PP, CRP, T4F, CMP, CK, CBC ####[address]#### ALDOLASE, UPE RAND, MYOG, SPE, SYMONE,URINE, RPR W RFX, SYMONE SERUM ####[facility] , Protein,Urine Negative Normal Negative [facility] Comment on above: Order Comment: Name Collection Type:: Clean-Voided Midstream Performed By: #### T SH3, ESR, ADDONUAPLUS, PP, CRP, T4F, CMP, CK, CBC ####[address]#### ALDOLASE, UPE RAND, MYOG, SPE, SYMONE,URINE, RPR W RFX, SYMONE SERUM ####[facility] , RBC,Urine 1-2 Normal 0-4 [facility] Comment on above: Order Comment: Name Collection Type:: Clean-Voided Midstream Performed By: #### T SH3, ESR, ADDONUAPLUS, PP, CRP, T4F, CMP, CK, CBC ####[address]#### ALDOLASE, UPE RAND, MYOG, SPE, SYMONE,URINE, RPR W RFX, SYMONE SERUM ####[facility] , Specificy Cerrillos,Urine 1.005 Normal 1.001-1.030 [facility] Comment on above: Order Comment: Name Collection Type:: Clean-Voided Midstream Performed By: #### T SH3, ESR, ADDONUAPLUS, PP, CRP, T4F, CMP, CK, CBC ####[address]#### ALDOLASE, UPE RAND, MYOG, SPE, SYMONE,URINE, RPR W RFX, SYMONE SERUM ####[facility] , Squamous Epithelial Cell,Urine 1-2 Normal 0-2 [facility] Comment on above: Order Comment: Name Collection Type:: Clean-Voided Midstream Performed By: #### T SH3, ESR, ADDONUAPLUS, PP, CRP, T4F, CMP, CK, CBC ####[address]#### ALDOLASE, UPE RAND, MYOG, SPE, SYMONE,URINE, RPR W RFX, SYMONE SERUM ####[facility] , Urobilinogen,Urine Normal Normal Normal [facility] Comment on above: Order Comment: Name Collection Type:: Clean-Voided Midstream Performed By: #### T SH3, ESR, ADDONUAPLUS, PP, CRP, T4F, CMP, CK, CBC ####[address]#### ALDOLASE, UPE RAND, MYOG, SPE, SYMONE,URINE, RPR W RFX, SYMONE SERUM ####[facility] , WBC,Urine 1-2 Normal 0-4 [facility] Comment on above: Order Comment: Name Collection Type:: Clean-Voided Midstream Performed By: #### T SH3, ESR, ADDONUAPLUS, PP, CRP, T4F, CMP, CK, CBC ####[facility]#### ALDOLASE, UPE RAND, MYOG, SPE, SYMONE,URINE, RPR W RFX, SYMONE SERUM ####[facility] , Eosinophils Auto (Bld) [#/Vo l]Ordered By: Jacob Baker on 12-12-2024 Eosinophils (Bld) [#/Vol] Automated eosinophil count 0.0-0.45 [facility] Eosinophils/100 WBC Auto (Bl d)Ordered By: Jacob Baker on 12-12-2024 Eosinophils/100 WBC (Bld) Automated eosinophil % . [facility] Epithelial cells.squamous [# /area] in Urine sediment by Automated countOrdered By: Jacob Baker on 12-12-2024 Epithelial cells.squamous Auto (Urine sed) [#/Area] Epithelial cells.squamous [#/area] in Urine sediment by Automated count 0-2 [facility] Erythrocyte Sedimentation Ra don 12-12-2024 ESR (Bld) [Velocity] 19 mm/h Normal 0-19 [facility] Comment on above: Result Comment: PERF ORMED BY: [facility] [address] [place] [address] PATHOLOGIST SILICA FILTER OPERATOR CARLOS KNAPP M.D. Performed By: #### T SH3, ESR, ADDONUAPLUS, PP, CRP, T4F, CMP, CK, CBC ####[place] [address] [address]#### ALDOLASE, UPE RAND, MYOG, SPE, SYMONE,URINE, RPR W RFX, SYMONE SERUM ####[facility] , Erythrocyte distribution wid th Auto (RBC) [Ratio]Ordered By: Jacob Baker on 12-12-2024 Erythrocyte distribution width (RBC) [Ratio] Erythrocyte distribution width [Ratio] by Automated count 11.9-15.3 [facility] Erythrocyte sedimentation ra te by Photometric methodOrdered By: Jacob Baker on 12-12-2024 ESR Photometric method (Bld) [Velocity] Erythrocyte sedimentation rate by Photometric method 0-19 [facility] Erythrocytes [#/area] in Uri ne sediment by Automated countOrdered By: Jacob Baker on 12-12-2024 RBC Auto (Urine sed) [#/Area] Erythrocytes [#/area] in Urine sediment by Automated count 0-4 [facility] Free T4 (Free Thyroxine)on 0 12-12-2024 Free T4 [Mass/Vol] 0.84 ng/dL Normal 0.61-1.12 [facility] Comment on above: Performed By: #### T SH3, ESR, ADDONUAPLUS, PP, CRP, T4F, CMP, CK, CBC ####[facility] [id number]#### ALDOLASE, UPE RAND, MYOG, SPE, SYMONE,URINE, RPR W RFX, YSMONE SERUM ####[facility] , Globulin Calc (S) [Mass/Vol] Ordered By: Jacob Baker on 12-12-2024 Globulin (S) [Mass/Vol] Serum globulin measurement by calculation (mass/volume) [facility] Glucose [Mass/volume] in Ser um or PlasmaOrdered By: Jacob Baker on 12-12-2024 Glucose [Mass/Vol] Glucose [Mass/volume ] in Serum or Plasma 70-100 [facility] Comment on above: ADA recommended refe [...] [Mass/volume] in Urine by Test strip Normal [facility] Hematocrit Auto (Bld) [Volum e fraction]Ordered By: Jacob Baker on 12-12-2024 Hematocrit (Bld) [Volume fraction] Hematocrit [Volume Fraction] of Blood by Automated count 34.0-46.4 [facility] Hemoglobin Test strip Ql (U) Ordered By: Jacob Baker on 12-12-2024 Hemoglobin Ql (U) Hemoglobin [Presence ] in Urine by Test strip Negative [facility] Hemoglobin [Mass/volume] in BloodOrdered By: Jacob Baker on 12-12-2024 Hemoglobin (Bld) [Mass/Vol] Hemoglobin [Mass/volume] in Blood 11.8-15.4 [facility] Histone Antibodieson 025 Histone Antibodies 1.4 High 0.0-0.9 [facility] Comment on above: Result Comment: Nega tive <1.0 Weak Positive 1.0 - 1.5 Moderate Positive 1.6 - 2.5 Strong Positive >2.5 Performed at: - [facility] [id number] Supervisor [employer]: Anne Oro MD, Phone: [phone] Performed By: #### M G, ESR, CMP, HS TROP, PTT, TSH3, T4F, ETOH, PT #### [address] Hyaline casts [#/area] in Ur ine sediment by Automated countOrdered By: Jacob Baker on 12-12-2024 Hyaline casts Auto (Urine sed) [#/Area] Hyaline casts [#/area] in Urine sediment by Automated count 0-8 [facility] INR in Platelet poor plasma by Coagulation assayOrdered By: Jacob Baker on 12-12-2024 INR Coag (PPP) [Relative time] INR in Platelet poor plasma by Coagulation assay [facility] Comment on above: INR Therapeutic Rang [...] Immunofixation (U) [Interp] Immunofixation for Urine . [facility] Comment on above: No monoclonality det ected.Performed at: [facility] [id number] Director: Santy Storey PhD, Phone: [phone] Immunofixation, (SYMONE), Urine on 12-12-2024 Immunofixation, (SYMONE), Urine Comment Normal . [facility] Comment on above: Result Comment: No m onoclonality detected. Performed at: [address] [id number] Supervisor [employer]: Santy Storey PhD, Phone: [phone] Performed By: #### T SH3, ESR, ADDONUAPLUS, PP, CRP, T4F, CMP, CK, CBC ####[address]#### ALDOLASE, UPE RAND, MYOG, SPE, SYMONE,URINE, RPR W RFX, SYMONE SERUM ####[facility] , Immunofixation,Serumon 12-12 Immunofixation, Serum Comment Normal . [facility] Comment on above: Result Comment: No m onoclonality detected. Performed By: #### T SH3, ESR, ADDONUAPLUS, PP, CRP, T4F, CMP, CK, CBC ####[address]#### ALDOLASE, UPE RAND, MYOG, SPE, SYMONE,URINE, RPR W RFX, SYMONE SERUM ####[facility] , Immunoglobulin A, Serum 262 mg/dL Normal 87-352 [facility] Comment on above: Performed By: #### T SH3, ESR, ADDONUAPLUS, PP, CRP, T4F, CMP, CK, CBC ####[facility]#### ALDOLASE, UPE RAND, MYOG, SPE, SYMONE,URINE, RPR W RFX, SYMONE SERUM ####[facility] , Immunoglobulin G 935 mg/dL Normal [id number] [facility] Comment on above: Performed By: #### T SH3, ESR, ADDONUAPLUS, PP, CRP, T4F, CMP, CK, CBC ####[facility]#### ALDOLASE, UPE RAND, MYOG, SPE, SYMONE,URINE, RPR W RFX, SYMONE SERUM ####[facility] , Immunoglobulin M, Serum 110 mg/dL Normal 26-217 [facility] Comment on above: Result Comment: Perf ormed at: - [facility] [place] [id number] Supervisor [employer]: Santy Storey PhD, Phone: [phone] Performed By: #### T SH3, ESR, ADDONUAPLUS, PP, CRP, T4F, CMP, CK, CBC ####[place] [address] [address]#### ALDOLASE, UPE RAND, MYOG, SPE, SYMONE,URINE, RPR W RFX, SYMONE SERUM ####[facility] , ES-1 Antibodyon 12-12-2024 ES-1 Antibody <0.2 Normal 0.0-0.9 [facility] Comment on above: Performed By: #### M G, ESR, CMP, HS TROP, PTT, TSH3, T4F, ETOH, PT #### [facility] [address] Ketones Test strip Ql (U)Ord ered By: Jacob Baker on 12-12-2024 Ketones Ql (U) Ketones [Presence] i n Urine by Test strip Negative [facility] Leukocyte esterase [Presence ] in Urine by Test stripOrdered By: Jacob Baker on 12-12-2024 Leukocyte esterase Test strip Ql (U) Leukocyte esterase [Presence] in Urine by Test strip Negative [facility] Leukocytes [#/area] in Urine sediment by Automated countOrdered By: Jacob Baker on 12-12-2024 WBC Auto (Urine sed) [#/Area] Leukocytes [#/area] in Urine sediment by Automated count 0-4 [facility] Leukocytes [#/volume] correc caitlin for nucleated erythrocytes in Blood by Automated counOrdered By: Jacob Baker on 12-12-2024 WBC corrected for nucl RBC Auto (Bld) [#/Vol] Leukocytes [#/volume] corrected for nucleated erythrocytes in Blood by Automated coun 3.8-11.6 [facility] Lupus Anticoagulant Compon 0 12-12-2024 Dilute Prothrombin Time (dPt) 28.5 Normal 0.0-47.6 [facility] Comment on above: Performed By: #### M G, ESR, CMP, HS TROP, PTT, TSH3, T4F, ETOH, PT #### [address] dPT Confirm Ratio 1.09 Normal 0.00-1.34 [facility] Comment on above: Performed By: #### M G, ESR, CMP, HS TROP, PTT, TSH3, T4F, ETOH, PT #### [address] DRVVT Lupus 29.9 Normal 0.0-47.0 [facility] Comment on above: Performed By: #### M G, ESR, CMP, HS TROP, PTT, TSH3, T4F, ETOH, PT #### [address] Interpretation Comment: Normal . [facility] Comment on above: Result Comment: No l upus anticoagulant was detected. Performed at: [address] [id number] Supervisor [employer]: Anne Oro MD, Phone: [phone] PERFORMED BY: [place] [address] PATHOLOGIST SILICA FILTER OPERATOR MOHAMED M EL-FAKHARANY M.D. Performed By: #### M G, ESR, CMP, HS TROP, PTT, TSH3, T4F, ETOH, PT #### [facility] [address] PTT-LA 26.0 Normal 0.0-43.5 [facility] Comment on above: Performed By: #### M G, ESR, CMP, HS TROP, PTT, TSH3, T4F, ETOH, PT #### [facility] [address] Thrombin Time 17.0 Normal 0.0-23.0 [facility] Comment on above: Performed By: #### M G, ESR, CMP, HS TROP, PTT, TSH3, T4F, ETOH, PT #### [facility] [address] Lupus anticoagulant [Interpr etation] in Platelet poor plasmaOrdered By: Jacob Baker on 12-12-2024 Lupus anticoagulant (PPP) [Interp] Lupus anticoagulant [Interpretation] in Platelet poor plasma . [facility] Comment on above: No lupus anticoagula nt was detected.Performed at: - [address] [id number] Director: Anne Oro MD, Phone: [phone] Lymphocytes Auto (Bld) [#/Vo l]Ordered By: Jacob Baker on 12-12-2024 Lymphocytes (Bld) [#/Vol] Lymphocytes [#/volume] in Blood by Automated count 1.00-4.8 [facility] Lymphocytes/100 WBC Auto (Bl d)Ordered By: Jacob Baker on 12-12-2024 Lymphocytes/100 WBC (Bld) Lymphocytes/100 leukocytes in Blood by Automated count . [facility] MCH Auto (RBC) [Entitic mass ]Ordered By: Jacob Baker on 12-12-2024 MCH (RBC) [Entitic mass] MCH [Entitic mass] by Automated count 24.7-34.3 [facility] MCHC Auto (RBC) [Mass/Vol]Or dered By: Jacob Baker on 12-12-2024 MCHC (RBC) [Mass/Vol] MCHC [Mass/volume] by Automated count 32.0-35.0 [facility] MCV Auto (RBC) [Entitic vol] Ordered By: Jacob Baker on 12-12-2024 MCV (RBC) [Entitic vol] MCV [Entitic volume] by Automated count 80-100 [facility] Monocytes Auto (Bld) [#/Vol] Ordered By: Jacob Baker on 12-12-2024 Monocytes (Bld) [#/Vol] Automated blood monocyte count 0.0-0.8 [facility] Monocytes/100 WBC Auto (Bld) Ordered By: Jacob Baker on 12-12-2024 Monocytes/100 WBC (Bld) Automated monocyte % . [facility] Mucus [Presence] in Urine by AutomatedOrdered By: Jacob Baker on 12-12-2024 Mucus Auto Ql (U) Mucus [Presence] in Urine by Automated [facility] Myoglobinon 12-12-2024 Myoglobin [Mass/Vol] ng/mL Low 25-58 [facility] Comment on above: Result Comment: Perf ormed at: CB - [facility] [place] [id number] Supervisor [employer]: Santy Storey PhD, Phone: [phone] Performed By: #### T SH3, ESR, ADDONUAPLUS, PP, CRP, T4F, CMP, CK, CBC ####[facility] [id number]#### ALDOLASE, UPE RAND, MYOG, SPE, SYMONE,URINE, RPR W RFX, SYMONE SERUM ####[facility] , Neutrophils Auto (Bld) [#/Vo l]Ordered By: Jacob Baker on 12-12-2024 Neutrophils (Bld) [#/Vol] Neutrophils [#/volume] in Blood by Automated count 1.8-7.7 [facility] Neutrophils/100 WBC Auto (Bl d)Ordered By: Jacob Baker on 12-12-2024 Neutrophils/100 WBC (Bld) Automated neutrophil % . [facility] Nitrite Test strip Ql (U)Ord ered By: Jacob Baker on 12-12-2024 Nitrite Ql (U) Nitrite [Presence] i n Urine by Test strip Negative [facility] No Panel InformationOrdered By: Jacob Baker on 12-12-2024 Estimated GFR (CKD-EPI) > 60.0 mL/Min [facility] Creatinine Clearance (Chem N/A [facility] Protein Electrophoresis M-Vincent Not observed g/dL Not Observed [facility] Protein Electrophoresis Note Comment . [facility] Comment on above: Protein electrophore sis scan will follow via computer,mail, or fermentation engineer delivery.Performed at: [address] [id number] Director: Santy Storey PhD, Phone: [phone] Urine Random Prot Electrophor Note Comment . [facility] Comment on above: Protein electrophore sis scan will follow via computer,mail, or fermentation engineer delivery. Nucleated erythrocytes [Pres ence] in Blood by Automated countOrdered By: Jacob Baker on 12-12-2024 Nucleated RBC Auto Ql (Bld) Nucleated erythrocytes [Presence] in Blood by Automated count 0-0.5 [facility] Plasma thrombin timeOrdered By: Jacob Baker on 12-12-2024 Thrombin time Coag (PPP) [Time] TT plas 0.0-23.0 [facility] Platelet mean volume Auto (B ld) [Entitic vol]Ordered By: Jacob Baker on 12-12-2024 Platelet mean volume (Bld) [Entitic vol] Platelet mean volume [Entitic volume] in Blood by Automated count 6.3-10.7 [facility] Platelet poor plasma ratio o f lupus anticoagulant-sensitive activated partial thromboOrdered By: Jacob Baker on 12-12-2024 aPTT.lupus sensitive.excess phospholipid actual/normal Coag (PPP) [Relative time] Platelet poor plasma ratio of lupus anticoagulant-sensitive activated partial thrombo 0.0-47.6 [facility] Platelets Auto (Bld) [#/Vol] Ordered By: Jacob Baker on 12-12-2024 Platelets (Bld) [#/Vol] Platelets [#/volume] in Blood by Automated count 150-450 [facility] Potassium [Moles/volume] in Serum or PlasmaOrdered By: Jacob Baker on 12-12-2024 Potassium [Moles/Vol] Potassium [Moles/volume] in Serum or Plasma 3.5-5.1 [facility] Protein Electro, Random Urin trent 12-12-2024 Albumin, Urine 21.6 % Normal . [facility] Comment on above: Performed By: #### T SH3, ESR, ADDONUAPLUS, PP, CRP, T4F, CMP, CK, CBC ####[address]#### ALDOLASE, UPE RAND, MYOG, SPE, SYMONE,URINE, RPR W RFX, SYMONE SERUM ####[facility] , Cfmph-7-Rldnqotr, Urine 7.6 % Normal . [facility] Comment on above: Performed By: #### T SH3, ESR, ADDONUAPLUS, PP, CRP, T4F, CMP, CK, CBC ####[address]#### ALDOLASE, UPE RAND, MYOG, SPE, SYMONE,URINE, RPR W RFX, SYMONE SERUM ####[facility] , Dmcwj-3-Dicplcsj, Urine 12.8 % Normal . [facility] Comment on above: Performed By: #### T SH3, ESR, ADDONUAPLUS, PP, CRP, T4F, CMP, CK, CBC ####[address]#### ALDOLASE, UPE RAND, MYOG, SPE, SYMONE,URINE, RPR W RFX, SYMONE SERUM ####[facility] , Beta Globulin, Urine 40.6 % Normal . [facility] Comment on above: Performed By: #### T SH3, ESR, ADDONUAPLUS, PP, CRP, T4F, CMP, CK, CBC ####[address]#### ALDOLASE, UPE RAND, MYOG, SPE, SYMONE,URINE, RPR W RFX, SYMONE SERUM ####[facility] , Gamma Globulin, Urine 17.5 % Normal . [facility] Comment on above: Performed By: #### T SH3, ESR, ADDONUAPLUS, PP, CRP, T4F, CMP, CK, CBC ####[address]#### ALDOLASE, UPE RAND, MYOG, SPE, SYMONE,URINE, RPR W RFX, SYMONE SERUM ####[facility] , M-Vincent % Not Observed Normal Not Observed [facility] Comment on above: Performed By: #### T SH3, ESR, ADDONUAPLUS, PP, CRP, T4F, CMP, CK, CBC ####[address]#### ALDOLASE, UPE RAND, MYOG, SPE, SYMONE,URINE, RPR W RFX, SYMONE SERUM ####[facility] , Please Note: Comment Normal . [facility] Comment on above: Result Comment: Prot ein electrophoresis scan will follow via computer, mail, or fermentation engineer delivery. PERFORMED BY: [place] [address] PATHOLOGIST SILICA FILTER OPERATOR CARLOS KNAPP M.D. Performed By: #### T SH3, ESR, ADDONUAPLUS, PP, CRP, T4F, CMP, CK, CBC ####[address]#### ALDOLASE, UPE RAND, MYOG, SPE, SYMONE,URINE, RPR W RFX, SYMONE SERUM ####[facility] , Protein (U) [Mass/Vol] mg/dL Normal Not Estab. [facility] Comment on above: Result Comment: Ve rified by repeat analysis Performed By: #### T SH3, ESR, ADDONUAPLUS, PP, CRP, T4F, CMP, CK, CBC ####[facility] [place] [address] [place]#### ALDOLASE, UPE RAND, MYOG, SPE, SYMONE,URINE, RPR W RFX, SYMONE SERUM ####[facility] , Protein Electrophoresis, Ser umon 12-12-2024 Albumin [Mass/Vol] 4.1 g/dL Normal 2.9-4.4 [facility] Comment on above: Performed By: #### T SH3, ESR, ADDONUAPLUS, PP, CRP, T4F, CMP, CK, CBC ####[address]#### ALDOLASE, UPE RAND, MYOG, SPE, SYMONE,URINE, RPR W RFX, SYMONE SERUM ####[facility] , Albumin/Globulin [Mass ratio] 1.2 {ratio} Normal 0.7-1.7 [facility] Comment on above: Performed By: #### T SH3, ESR, ADDONUAPLUS, PP, CRP, T4F, CMP, CK, CBC ####[address]#### ALDOLASE, UPE RAND, MYOG, SPE, SYMONE,URINE, RPR W RFX, SYMONE SERUM ####[facility] , Qxawf-2-Vwqnxvgv 0.3 g/dL Normal 0.0-0.4 [facility] Comment on above: Performed By: #### T SH3, ESR, ADDONUAPLUS, PP, CRP, T4F, CMP, CK, CBC ####[address]#### ALDOLASE, UPE RAND, MYOG, SPE, SYMONE,URINE, RPR W RFX, SYMONE SERUM ####[facility] , Gfbvl-3-Ebfrebpd 0.9 g/dL Normal 0.4-1.0 [facility] Comment on above: Performed By: #### T SH3, ESR, ADDONUAPLUS, PP, CRP, T4F, CMP, CK, CBC ####[place] [address] [place]#### ALDOLASE, UPE RAND, MYOG, SPE, SYMONE,URINE, RPR W RFX, SYMONE SERUM ####[facility] , Beta Globulin 1.2 g/dL Normal 0.7-1.3 [facility] Comment on above: Performed By: #### T SH3, ESR, ADDONUAPLUS, PP, CRP, T4F, CMP, CK, CBC ####[address]#### ALDOLASE, UPE RAND, MYOG, SPE, SYMONE,URINE, RPR W RFX, SYMONE SERUM ####[facility] , Gamma Globulin 1.0 g/dL Normal 0.4-1.8 [facility] Comment on above: Performed By: #### T SH3, ESR, ADDONUAPLUS, PP, CRP, T4F, CMP, CK, CBC ####[address]#### ALDOLASE, UPE RAND, MYOG, SPE, SYMONE,URINE, RPR W RFX, SYMONE SERUM ####[facility] , Globulin (S) [Mass/Vol] 3.4 g/dL Normal 2.2-3.9 [facility] Comment on above: Performed By: #### T SH3, ESR, ADDONUAPLUS, PP, CRP, T4F, CMP, CK, CBC ####[address]#### ALDOLASE, UPE RAND, MYOG, SPE, SYMONE,URINE, RPR W RFX, SYMONE SERUM ####[facility] , M-Vincent Not Observed Normal Not Observed [facility] Comment on above: Performed By: #### T SH3, ESR, ADDONUAPLUS, PP, CRP, T4F, CMP, CK, CBC ####[address]#### ALDOLASE, UPE RAND, MYOG, SPE, SYMONE,URINE, RPR W RFX, SYMONE SERUM ####[facility] , SPE-Note Comment Normal . [facility] Comment on above: Result Comment: Prot ein electrophoresis scan will follow via computer, mail, or fermentation engineer delivery. Performed at: - [facility] [id number] Supervisor [employer]: Santy Storey PhD, Phone: [phone] Performed By: #### T SH3, ESR, ADDONUAPLUS, PP, CRP, T4F, CMP, CK, CBC ####[facility] [id number]#### ALDOLASE, UPE RAND, MYOG, SPE, SYMONE,URINE, RPR W RFX, SYMONE SERUM ####[facility] , Protein Test strip (U) [Mass /Vol]Ordered By: Jacob Baker on 12-12-2024 Protein (U) [Mass/Vol] Protein [Mass/vol ume] in Urine by Test strip Negative [facility] Protein [Mass/volume] in Ser um or PlasmaOrdered By: Jacob Baker on 12-12-2024 Protein [Mass/Vol] Protein [Mass/volume ] in Serum or Plasma 6.0-8.5 [facility] Prothrombin time (PT)Ordered By: Jacob Baker on 12-12-2024 PT Coag (PPP) [Time] Prothrombin time (PT) 9.0- 12.9 [facility] Comment on above: A hematocrit value g reater than 55% may lead to inaccurate results in coagulation testing. Patients having hematocrit values >55% require a special collection tube for coagulation studies. Please contact the laboratory at [phone] for redraw instructions. RBC Auto (Bld) [#/Vol]Ordere d By: Jacob Baker on 12-12-2024 RBC (Bld) [#/Vol] Erythrocytes [#/volu me] in Blood by Automated count 3.60-5.00 [facility] RPR w/rfx to Quant TP Abson 12-12-2024 RPR, Rfx Quant RPR Non-Reactive Normal Non Reactive Th e [facility] Comment on above: Result Comment: Perf ormed at: - [facility] [id number] Supervisor [employer]: Santy Storey PhD, Phone: [phone] PERFORMED BY: [place] [address] PATHOLOGIST SILICA FILTER OPERATOR CARLOS KNAPP M.D. Performed By: #### T SH3, ESR, ADDONUAPLUS, PP, CRP, T4F, CMP, CK, CBC ####[facility] [id number]#### ALDOLASE, UPE RAND, MYOG, SPE, SYMONE,URINE, RPR W RFX, SYMONE SERUM ####[facility] , Rheumatoid Factoron 12-13-19 25 Rheumatoid Factor <10.0 Normal <14.0 [facility] Comment on above: Result Comment: Perf ormed at: - [facility] [address] [id number] Supervisor [employer]: Santy Storey PhD, Phone: [phone] Performed By: #### A DNA, SJOGRENS, HELM, C3, HISAB, CCP, CHROMATIN, CENTROME, RA, CYNDI, [id number], JO1, B2 GLYPROT, ANTIR, CARDIO GMA, C4, CH50 ####[facility] , Ribonucleoprotein antibody a ssayOrdered By: Jacob Baker on 12-12-2024 [employer] SUPERVISOR Antibody <0.2 AI 0.0-0.9 [facility] Scl-70 antibody assayOrdered By: Jacob Baker on 12-12-2024 Scl-70 (Scleroderma) Antibody <0.2 AI 0.0-0.9 [facility] Scleroderma 70 Antibodieson 12-12-2024 Scleroderma 70 Antibodies <0.2 Normal 0.0-0.9 [facility] Comment on above: Performed By: #### M G, ESR, CMP, HS TROP, PTT, TSH3, T4F, ETOH, PT #### [facility] [address] Screening dilute Kuldip's v iper venom time (DRVVT) with reflex to confirmatory testOrdered By: Jacob Baker on 12-12-2024 dRVVT Coag (PPP) [Time] Screening dilute Kuldip's viper venom time (DRVVT) with reflex to confirmatory test 0.0-47.0 [facility] Screening lupus anticoagulan t-sensitive activated partial thromboplastin time (aPTT)Ordered By: Jacob Baker on 12-12-2024 aPTT.lupus sensitive Coag (PPP) [Time] Screening lupus anticoagulant-sensitive activated partial thromboplastin time (aPTT) 0.0-43.5 [facility] Serum Es-1 extractable nucle ar antibody assay (units/volume)Ordered By: Jacob Baker on 12-12-2024 Es-1 extractable nuclear Ab Qn (S) Serum Es-1 extractable nuclear antibody assay (units/volume) 0.0-0.9 [facility] Serum RPR testOrdered By: Stephany Baker on 12-12-2024 Reagin Ab RPR Ql (S) Reagin Ab [Presence ] in Serum by RPR Non Reactive [facility] Comment on above: Performed at: [address] [id number] Director: Santy Storey PhD, Phone: [phone] Serum Sjogrens syndrome-A ex tractable nuclear antibody assay (units/volume)Ordered By: Jacob Baker on 12-12-2024 Sjogrens syndrome-A extractable nuclear Ab Qn (S) Serum Sjogrens syndrome-A extractable nuclear antibody assay (units/volume) 0.0-0.9 [facility] Serum Sjogrens syndrome-B ex tractable nuclear antibody assay (units/volume)Ordered By: Jacob Baker on 12-12-2024 Sjogrens syndrome-B extractable nuclear Ab Qn (S) Serum Sjogrens syndrome-B extractable nuclear antibody assay (units/volume) 0.0-0.9 [facility] Serum Helm extractable nucl ear antigen (HERIBERTO) antibody assay (units/volume)Ordered By: Jacob Baker on 12-12-2024 Helm extractable nuclear Ab Qn (S) Serum Helm extractable nuclear antigen (HERIBERTO) antibody assay (units/volume) 0.0-0.9 [facility] Serum aldolase measurementOr dered By: Jacob Baker on 12-12-2024 Aldolase 4.2 U/L Normal 3.3-10.3 [facility] Comment on above: Performed at: [facility] [address] [id number] Director: Santy Storey PhD, Phone: [phone] Result Comment: Perf ormed at: - [facility] [id number] Supervisor [employer]: Santy Storey PhD, Phone: [phone] PERFORMED BY: [facility] [address] [place] [address] PATHOLOGIST SILICA FILTER OPERATOR CARLOS KNAPP M.D. Performed By: #### T SH3, ESR, ADDONUAPLUS, PP, CRP, T4F, CMP, CK, CBC ####[facility] [address]#### ALDOLASE, UPE RAND, MYOG, SPE, SYMONE,URINE, RPR W RFX, SYMONE SERUM ####[facility] , Serum beta 2 glycoprotein 1 IgM antibody assay (units/volume)Ordered By: Jacob Baker on 12-12-2024 Beta 2 glycoprotein 1 IgM Qn (S) Beta 2 glycoprotein 1 IgM Ab [Units/volume] in Serum 0-32 [facility] Comment on above: Result Units: GPI Ig M unitsThe reference interval reflects a 3SD or 99th percentileinterval, which is thought to represent a potentiallyclinically significant result in accordance with theInternational Consensus Statement on the classificationcriteria for definitive antiphospholipid syndrome (APS). JThromb Haem 2006;4:295-306.Performed at: [facility] [id number] Director: Santy Storey PhD, Phone: [phone] Serum cardiolipin IgA antibo dy assay by immunoassay (units/volume)Ordered By: Jacob Baker on 12-12-2024 Cardiolipin IgA IA Qn (S) Cardiolipin IgA Ab [Units/volume] in Serum by Immunoassay 0-11 [facility] Comment on above: Negative: <12 Indete rminate: 12 - 20 Low-Med Positive: >20 - 80 High Positive: >80 Serum cardiolipin IgG antibo dy assay by immunoassay (units/volume)Ordered By: Jacob Baker on 12-12-2024 Cardiolipin IgG IA Qn (S) Cardiolipin IgG Ab [Units/volume] in Serum by Immunoassay 0-14 [facility] Comment on above: Negative: <15 Indete rminate: 15 - 20 Low-Med Positive: >20 - 80 High Positive: >80 Serum cardiolipin IgM antibo dy assay by immunoassay (units/volume)Ordered By: Jacob Baker on 12-12-2024 Cardiolipin IgM IA Qn (S) Cardiolipin IgM Ab [Units/volume] in Serum by Immunoassay 0-12 [facility] Comment on above: Negative: <13 Indete rminate: 13 - 20 Low-Med Positive: >20 - 80 High Positive: >80 Serum centromere protein B a ntibody assay (units/volume)Ordered By: Jacob Baker on 12-12-2024 Centromere protein B Ab Qn (S) Serum centromere protein B antibody assay (units/volume) 0.0-0.9 [facility] Comment on above: Performed at: [address] [id number] Director: Santy Storey PhD, Phone: [phone] Serum globulin measurement ( mass/volume)Ordered By: Jacob Baker on 12-12-2024 Globulin (S) [Mass/Vol] Serum globulin measurement (mass/volume) 2.2-3.9 [facility] Serum histone IgG antibody a ssay by immunoassay (units/volume)Ordered By: Jacob Baker on 12-12-2024 Histone IgG IA Qn (S) Serum histone IgG antibody assay by immunoassay (units/volume) High 0.0-0.9 [facility] Comment on above: Negative <1.0 Weak P ositive 1.0 - 1.5 Moderate Positive 1.6 - 2.5 Strong Positive >2.5Performed at: [facility] HospitalMqspdxvgdu[address] [place], [place] [id number] Director: Anne Oro MD, Phone: [phone] Serum immunofixation electro phoresisOrdered By: Jacob Baker on 12-12-2024 Serum Immunofixation Comment . [facility] Comment on above: No monoclonality det ected. Serum nuclear antibody titer Ordered By: Jacob Baker on 12-12-2024 Nuclear Ab (S) [Titer] Serum nuclear ant ibody titer . [facility] Comment on above: Negative <1:80 Borde rline 1:80 Positive >1:80ICAP nomenclature: AC-0For more information about Hep-2 cell patterns useANApatterns.org, the official website for theInternational Consensus on Antinuclear Antibody (CYNDI)Patterns (ICAP).Performed at: [place] [address] [place], [place] [id number] Director: Santy Storey PhD, Phone: [phone] Serum or plasma IgA measurem ent (mass/volume)Ordered By: Jacob Baker on 12-12-2024 IgA [Mass/Vol] IgA [Mass/volume] in Serum or Plasma 87-352 [facility] Serum or plasma IgG measurem ent (mass/volume)Ordered By: Jacob Baker on 12-12-2024 IgG [Mass/Vol] IgG [Mass/volume] in Serum or Plasma [phone] [facility] Serum or plasma IgM measurem ent (mass/volume)Ordered By: Jacob Baker on 12-12-2024 IgM [Mass/Vol] IgM [Mass/volume] in Serum or Plasma 26-217 [facility] Comment on above: Performed at: [email or web address] [address] [place], [place] [id number] Director: Santy Storey PhD, Phone: [phone] Serum or plasma albumin audie urement (mass/volume)Ordered By: Jacob Baker on 12-12-2024 Albumin [Mass/Vol] Albumin [Mass/volume ] in Serum or Plasma 2.9-4.4 [facility] Serum or plasma albumin/glob ulin mass ratioOrdered By: Jacob Baker on 12-12-2024 Albumin/Globulin [Mass ratio] Serum or plasma albumin/globulin mass ratio 0.7-1.7 [facility] Serum or plasma alpha 1 glob ulin measurement by electrophoresis (mass/volume)Ordered By: Jacob Baker on 12-12-2024 Alpha 1 globulin Elph [Mass/Vol] Serum or plasma alpha 1 globulin measurement by electrophoresis (mass/volume) 0.0-0.4 [facility] Serum or plasma alpha 2 glob ulin measurement by electrophoresis (mass/volume)Ordered By: Jacob Baker on 12-12-2024 Alpha 2 globulin Elph [Mass/Vol] Serum or plasma alpha 2 globulin measurement by electrophoresis (mass/volume) 0.4-1.0 [facility] Serum or plasma anion gap de terminationOrdered By: Jacob Baker on 12-12-2024 Anion gap [Moles/Vol] Serum or plasma an ion gap determination 6.0-15.0 [facility] Serum or plasma beta globuli n measurement by electrophoresis (mass/volume)Ordered By: Jacob Baker on 12-12-2024 Beta globulin Elph [Mass/Vol] Serum or plasma beta globulin measurement by electrophoresis (mass/volume) 0.7-1.3 [facility] Serum or plasma chromatin an tibody assay (units/volume)Ordered By: Jacob Baker on 12-12-2024 Chromatin Ab Qn Serum or plasma chromatin antibody assay (units/volume) 0.0-0.9 [facility] Serum or plasma complement C 3 measurement (mass/volume)Ordered By: Jacob Baker on 12-12-2024 Complement C3 [Mass/Vol] Serum or plasma complement C3 measurement (mass/volume) 82-167 [facility] Serum or plasma complement C 4 measurement (mass/volume)Ordered By: Jacob Baker on 12-12-2024 Complement C4 [Mass/Vol] Serum or plasma complement C4 measurement (mass/volume) 12-38 [facility] Serum or plasma cyclic adeno sine monophosphate measurement (moles/volume)Ordered By: Jacob Baker on 12-12-2024 Adenosine monophosphate.cyclic [Moles/Vol] Serum or plasma cyclic adenosine monophosphate measurement (moles/volume) 0-19 [facility] Comment on above: Negative <20 Weak po sitive 20 - 39 Moderate positive 40 - 59 Strong positive >59Performed at: [facility] [address] [id number] Director: Santy Storey PhD, Phone: [phone] Serum or plasma gamma globul in measurement by electrophoresis (mass/volume)Ordered By: Jacob Baker on 12-12-2024 Gamma globulin Elph [Mass/Vol] Serum or plasma gamma globulin measurement by electrophoresis (mass/volume) 0.4-1.8 [facility] Serum or plasma myoglobin me asurement (mass/volume)Ordered By: Jacob Baker on 12-12-2024 Myoglobin [Mass/Vol] Serum or plasma myoglobin measurement (mass/volume) Low 25-58 [facility] Comment on above: Performed at: [email or web address] [address] [id number] Director: Santy Storey PhD, Phone: [phone] Serum or plasma rheumatoid f actor measurement (units/volume)Ordered By: Jacob Baker on 12-12-2024 Rheumatoid factor Qn Serum or plasma rheumatoid factor measurement (units/volume) <14.0 [facility] Comment on above: Performed at: [email or web address] [address] [id number] Director: Santy Storey PhD, Phone: [phone] Sjogrens Anti-SSA/SSBon 11-14 SS-A/Ro Sjogrens Antibody <0.2 Normal 0.0-0.9 [facility] Comment on above: Performed By: #### M G, ESR, CMP, HS TROP, PTT, TSH3, T4F, ETOH, PT #### [facility] [address] SS-B/La Sjogrens Antibody <0.2 Normal 0.0-0.9 [facility] Comment on above: Performed By: #### M G, ESR, CMP, HS TROP, PTT, TSH3, T4F, ETOH, PT #### [facility] [address] Sodium [Moles/volume] in Ser um or PlasmaOrdered By: Jacob Baker on 12-12-2024 Sodium [Moles/Vol] Sodium [Moles/volume ] in Serum or Plasma 136-145 [facility] Specific gravity Test strip (U) [Rel density]Ordered By: Jacob Baker on 12-12-2024 Specific gravity (U) [Rel density] Specific gravity of Urine by Test strip 1.001-1.030 [facility] Thyroid Stimulating Hormoneo n 12-12-2024 TSH Qn 0.91 m[IU]/L Normal 0.45-5.33 [facility] Comment on above: Result Comment: PERF ORMED BY: [place] [address] PATHOLOGIST SILICA FILTER OPERATOR CARLOS KNAPP M.D. Performed By: #### T SH3, ESR, ADDONUAPLUS, PP, CRP, T4F, CMP, CK, CBC ####[facility] [address]#### ALDOLASE, UPE RAND, MYOG, SPE, SYMONE,URINE, RPR W RFX, SYMONE SERUM ####[facility] , Thyrotropin [Units/volume] i n Serum or PlasmaOrdered By: Jacob Baker on 12-12-2024 TSH Qn Thyrotropin [Units/volume] in Serum or Plasma 0.45-5.33 [facility] Thyroxine (T4) free [Mass/vo lume] in Serum or PlasmaOrdered By: Jacob Baker on 12-12-2024 Free T4 [Mass/Vol] Thyroxine (T4) free [Mass/volume] in Serum or Plasma 0.61-1.12 [facility] Total hemolytic complement C H50 assayOrdered By: Jacob Baker on 12-12-2024 Total Complement (CH50) >60 U/mL >41 [facility] Comment on above: Age Male Female [...] to determine out of range values.Performed at: [facility] [address] [id number] Director: Santy Storey PhD, Phone: [phone] Urea nitrogen [Mass/volume] in Serum or PlasmaOrdered By: Jacob Baker on 12-12-2024 Urea nitrogen [Mass/Vol] Urea nitrogen [Mass/volume] in Serum or Plasma 04-07 [facility] Urine alpha 1 globulin/total protein by electrophoresisOrdered By: Jacob Baker on 12-12-2024 Alpha 1 globulin Elph (U) [Mass fraction] Urine alpha 1 globulin/total protein by electrophoresis . [facility] Urine alpha 2 globulin/total protein ratio by electrophoresisOrdered By: Jacob Baker on 12-12-2024 Alpha 2 globulin Elph (U) [Mass fraction] Urine alpha 2 globulin/total protein ratio by electrophoresis . [facility] Urine beta globulin measurem ent by electrophoresis (mass/volume)Ordered By: Jacob Baker on 12-12-2024 Beta globulin Elph (U) [Mass/Vol] Urine beta globulin measurement by electrophoresis (mass/volume) . [facility] Urine protein measurement (m ass/volume)Ordered By: Jacob Baker on 12-12-2024 Protein (U) [Mass/Vol] Protein [Mass/vol ume] in Urine Not Estab. [facility] Comment on above: Verified by repeat analysis Urobilinogen Test strip (U) [Mass/Vol]Ordered By: Jacob Baker on 12-12-2024 Urobilinogen (U) [Mass/Vol] Urobilinogen [Mass/volume] in Urine by Test strip Normal [facility] WBC Auto (Bld) [#/Vol]Ordere d By: Jacob Baker on 12-12-2024 WBC (Bld) [#/Vol] Leukocytes [#/volume ] in Blood by Automated count 3.8-11.6 [facility] aPTT in Platelet poor plasma by Coagulation assayOrdered By: Jacob Baker on 12-12-2024 aPTT Coag (PPP) [Time] Activated partial thromboplastin time (aPTT) in platelet poor plasma by coagulation a 25.1-36.5 [facility] Comment on above: A hematocrit value g reater than 55% may lead to inaccurate results in coagulation testing. Patients having hematocrit values >55% require a special collection tube for coagulation studies. Please contact the laboratory at [phone] for redraw instructions. aPTT.lupus sensitive/aPTT.babs pus sensitive W excess phospholipid (screen to confirm raOrdered By: Jacob Baker on 12-12-2024 aPTT.lupus sensitive/aPTT.lupus sensitive W excess phospholipid Coag (PPP) [Ratio] aPTT.lupus sensitive/aPTT.lupus sensitive W excess phospholipid (screen to confirm ra 0.00-1.34 [facility] pH Test strip (U)Ordered By: Jacob Baker on 12-12-2024 pH (U) pH of Urine by Test strip 5.0-9.0 [facility] US Abdomen, Limitedon 2024 US Abdomen, [...] MD Transcribed by: MARCO Technologist: KELLY Walters [facility] Main OR Intraoperative Recor don 11-28-2024 Main OR Intraoperative Record Main OR Intraoperative Record IntraOp Document Type FTPM Summary Primary Physician: Babar Mayers DO Finalized Date/Time: 11/28/24 10:21:25 Pt. Name: SHAZIA CHOU Isreal Montgomery/Sex: 1990 Female Med Rec #: [id number] Physician: Babar Mayers DO Financial #: [id number] Pt. Type: P Room/Bed: / Admit/Disch: 11/28/24 08:59:53 - Institution: Case Times FTPM Entry 1 Patient Times In Room 11/28/24 10:16:00 Out Room 11/28/24 10:22:00 Procedure Times Start 11/28/24 10:19:00 Stop 11/28/24 10:21:00 Anesthesia Times Last Modified By: Markos ROLLE, Lulu Bellamy 11/28/24 10:21:12 Case Attendance FTPM Entry 1 Entry 2 Entry 3 Case Attendee Babar Mayers DO, RN, Lulu Rodas RN, Nolvia Lehman Role Performed Surgeon - Primary Drywall Contractor - Primary Scrub - Primary Time In 11/28/24 10:16:00 11/28/24 10:16:00 11/28/24 10:16:00 Time Out 11/28/24 10:22:00 11/28/24 10:22:00 11/28/24 10:22:00 Procedure TRANSFORAMINAL EPIDURAL TRANSFORAMINAL EPIDURAL TRANSFORAMINAL EPIDURAL STEROID INJECTIO(Left) STEROID INJECTIO(Left) STEROID INJECTIO(Left) Comments Last Modified By: Markos ROLLE, Lulu Burrows RN, Lulu Mercer RN 11/28/24 10:21:12 11/28/24 10:21:12 11/28/24 10:21:12 Entry 4 Case Attendee Sofy Mix Role Performed Cattle Killer Time In 11/28/24 10:16:00 Time Out 11/28/24 [...] Given Participants Clark ROLLE, Talib De La Gazra DO, Bradford A., Daniel, Alissa M Time [...] and tissue Entry 1 Skin Integrity Intact, [place], Warm, & Skin Abnormality No Dry Outcomes [...] Large Under (more content not included)... Normal [facility] Main OR Preoperative Recordo n 11-28-2024 Main OR Preoperative Record Main OR Preoperative Record Holding Area Document Type FTPM Summary Primary Physician: Babar Mayers DO Finalized Date/Time: 11/28/24 09:16:26 Pt. Name: SHAZIA CHOU/Sex: 1990 Female Med Rec #: [id number] Physician: Babar Mayers DO Financial #: [id number] Pt. Type: P Room/Bed: / Admit/Disch: 11/28/24 [...] Gabrielle Sultana RN 11/28/24 09:06:49 Finalized By: Gabreille Sultana RN Document Signatures Signed By: Gabrielle Sultana RN 11/28/24 09:04 Gabrielle Sultana RN 11/28/24 09:16 Normal [facility] MRI Spine Lumbar w/o Contras ton 11-12-2024 [...] MD Transcribed by: MARCO Technologist: MANDI Normal [facility] Nonvisit Note - PTon 025 Nonvisit Note - PT Nonvisit Note - PT -per and her insurance will not cover. Normal [facility] Nonvisit Note - PTon 025 Nonvisit Note - PT Nonvisit Note - PT Shazia called to cancel her remaining appointments. She said per request of her doctor and insurance will not cover it Normal [facility] Nonvisit Note - PTon 025 Nonvisit Note - PT Nonvisit Note - PT - pt is having issues with her insurance and wants to figure it out first Normal [facility] XR Spine Lumbosacral Minimum 4 Viewson 11-03-2024 [...] Pena Transcribed by: MARCO Technologist: CHANCE Normal [facility] XR Femur Min 2 Views Lefton 11-02-2024 [...] MD Transcribed by: MARCO Technologist: CHANCE Normal [facility] Nonvisit Note - PTon 025 Nonvisit Note - PT Nonvisit Note - PT Chart reviewed with eval prepped for scheduled eval. KK Normal [facility] ED Clinical Summaryon 2024 ED Clinical Summary ED Clinical Summary [place] [id number] ED Clinical Summary Person Information Name: SHAZIA CHOU/[facility] Age: 33 Years : 1990 Sex: Female Language: Cymro PCP: KURT BALBUENA CNP Marital Status: Visit [...] 10/18/2024 08:40:02 10/18/2024 08:40:02 10/18/2024 08:40:02 ADDRESS: [address] [place] [id number] PHYS DOC NOTES: MEDICAL INFORMATION: Prescriptions Given: New Medications [id number], [address], [place] [id number], [phone] methocarbamol (Robaxin-750 oral tablet) 2 Tablets By [...] Follow up: With: Address: When: KURT BALBUENA [address] [place], [place] [id number] Business (1) In 3 days 10/21/2024 DIAGNOSIS: Chronic pain Normal [facility] ED Note-Physicianon 10-18-19 ED Note-Physician ED Note-Physician Basic Information Time Seen: Beto Shea PA-C 10/18/2024 08:20 Chief Complaint Pt reports lower back pain and left leg pain. Pt reports she has seen multiple doctors and no one can figure out what is oging on. Pain since . Has seen PCP, [facility], Neuro. EMG [...] day(s), # 18 tab(s), Refills(s) 0, Pharmacy: [id number], 170, cm, 10/18/24 8:12:00 EST, Height/Length Dosing, 90, kg, 10/18/24 8:12:00 EST, Weight Dosing predniSONE, 60 mg = 3 tab(s), Oral, Daily, X 7 day(s), # 21 tab(s), Refills(s) 0, Pharmacy: [facility]acy #[id number], 170, cm, 10/18/24 8:12:00 EST, [...] BALBUENA In 3 days 10/21/2024 EST [address] [place] [address] Business (1) Additional Instructions: Patient Education [...] made to ensure accuracy, however, inadvertently computerized special investigator mistakes may be present. Appropriate healthcare PPE [...] Procedure/Surgical H (more content not included)... Normal [facility] Comment on above: Result Comment: Elec tronically Signed By: Beto Shea PA-C\.br\Date and Time Signed: 10/18/24 09:04 EST\.br\Electronically Co-Signed By: Jose Correia M.D.\.br\Date and Time Co-Signed: 10/18/24 09:07 EST ED Patient Summaryon 025 ED Patient Summary ED Patient Summary [place] [id number] Patient Discharge Instructions Person Information Name: SHAZIA CHOU Age: 33 Years Arrival Date: 10/18/2024 08:04:01 Discharge Diagnosis: Chronic pain Primary Care Physician: KURT BALBUENA CNP Provider Information Primary Provider: Jose Correia M.D. Advanced Bus Greaser:Beto Shea PA-C The exam and treatment you received in the Emergency Department were for an urgent problem and are not intended as complete care. It is important that you follow up with a doctor, nurse practitioner, or physician???s curriculum assistant principal for ongoing care. If your symptoms become worse or you do not improve as expected and you are unable to reach your usual health care provider, you should return to the Emergency Department. We are available 24 hours a day. CASSIAKARIN MALDONADOICA Isreal has been given the following list of patient education materials, prescriptions and follow-up instructions: Follow-up Instructions: With: Address: When: KURT BALBUENA [address] [place] [phone] Business (1) In 3 days 10/21/2024 In the event that this physician does not participate in your insurance network, please consult with your insurance company to find a nearby participating provider. Patient Education Materials: Chronic Pain, Adult A MESSAGE TO ALL PATIENTS REGARDING OPIOIDS PRESCRIPTION OPIOIDS: WHAT YOU NEED TO KNOW Prescription opioids can be used to help relieve blkuzfwe-si-bjmchb pain and are often prescribed following a [...] care professio (more content not included)... Normal [facility] Ambulatory Visit Summaryon 0 10-14-2024 Ambulatory Visit [...] AM EST With: KURT BALBUENA CNP Where: [address] [address]- Medications What How Much When Why Instructions [...] choosing us for your care. Normal [facility] Family Medicine Office/Clini c Noteon 10-14-2024 Family Medicine Office/Clinic Note Family Medicine Office/Clinic Note Chief Complaint Pain follow up HPI Staff Pt presents today for 2wk follow up to chronic pain. Treated w/gabapentin 100mg. Pt denies relief from pain with med. Brain MRI? Has not scheduled yet due to rescheduling on pt's end. Rheumatoid factor ordered last encounter. NEG (done @ [facility]) Referred to [facility]. Did see, but waiting for MRI brain results. PHQ9: 14 Does see psychiatrist. Concerned she may have Raynaud's. Would like referral rt check writer. History of Present Illness 33 year old [...] to rheumatology as the MD at [facility] suggested she may have Raynaud's [...] TID, # 90 cap(s), Refills(s) 0, Pharmacy: [facility]pharmacy #[id number], 170, cm, 10/14/24 9:02:00 EST, Height/Length Dosing, 90.2, kg, 10/14/24 9:02:00 EST, Weight Dosing 2. Raynaud phenomenon (I73.00: Raynaud's syndrome without gangrene) Ordered: [facility] External Ambulatory Referral 3. Alcohol abuse, uncomplicated [...] KURT BALBUENA CNP, FAM Within 6 weeks [address] [place] [address] Business (1) Additional Instructions: Chronic pain syndrome Patient Education Binge-Drinking Information, Adult Problem List/Past Medical History Ongoing Alcohol abuse, uncomplicated Bipolar disorder BMI 31.0-31.9,adult Borderline personality disorder Chronic pain syndrome History of bypass of stomach Hypertension Iron deficiency anemia Left breast mass Muscle weakness-general Obesity (BMI 30-39.9) Overweight (BMI 25.0 (more content not included)... Normal [facility] Comment on above: Result Comment: Elec tronically Signed By: KURT BALBUENA CNP\.br\Date and Time Signed: 10/14/24 09:39 EST Pre-Visit Planningon 025 Pre-Visit Planning Pre-Visit Planning From: Lina Chirinos To: KURT BALBUENA CNP; Sent: 10/13/2024 14:16:22 EST Subject: Pre-Visit Planning Due Date/Time: 10/13/2024 14:16:00 EST Caller Name: SHAZIA CHOU; Caller Number: Jonathan , Antonio Lanier. During a pre-visit planning chart review, I noted the following documentation in the medical record: Current Problem List: Alcohol abuse, uncomplicated. 11/03/2022 Office Visit Note: HPI- Pt reports her sobriety is under control. 50 days sober. Currently not drinking. Pt reports she started drinking heavily about 16 mo ago when her mother . Pt is currently using Naltrexone. 06/09/2023 [facility] ED Note: HPI- The patient states that [...] drug abuse. This was an error. 09/16/2024 [facility] Records (page 11): Office Visit dated 06/16/2024- [...] feel free to contact me at extension [phone]. Lina Chirinos LPN Clinical Automobile Service Advisor [address] [address] Extension: [phone] [email or web address] From: KURT BALBUENA CNP To: Lina Chirinos; Sent: 10/14/2024 09:24:40 EST Subject: RE: Pre-Visit Planning Caller Name: SHAZIA CHOU; Caller Number: Jonathan , Veto Dx of alcohol abuse, uncomplicated added to the visit dx and chronic list- The following in in the patient's plan- Monitor for s/sx of alcohol dependence Recheck Vitamin B, folate, TIBC, Ferritin, Magnesium, phosphate, & zinc annually Encouraged to limit alcohol consumption to 4-6 ounces when she drinks Encouraged to continue with counseling f/u in 4-6 weeks Normal [facility] Ambulatory Visit Summaryon 0 09-30-2024 Ambulatory Visit Summary Ambulatory Visit Summary KARIN CHOUICA Isreal :1990 Visit Date:09/30/2024 Ambulatory Visit Instructions Your [...] AM EST With: KURT BALBUENA CNP Where: [address] [phone]- Medications What How Much When Why Instructions New gabapentin (gabapentin 100 mg Cap) 1 Capsules By Mouth 3 times a day Chronic pain syndrome Pickup at [facility]/pharmacy #[id number] Unchanged acetaminophen (Tylenol) 325 Milligram [...] Once a day (at bedtime) Pharmacy Information [facility]/pharmacy #[id number]: [address], [place] [id number] [phone] Allergies Abilify (suicidal) BuSpar (palpitations) Coconut Oil [...] for choosing us for your care. Normal [facility] Family Medicine Office/Clini c Noteon 09-30-2024 Family [...] her previous pcp in July, to [facility] ED on 09/05/2024 and again on 09/11/2024. She was seen by a provider at [facility] on 09/05/2024 and additional laboratory testing was [...] syndrome) Reviewed notes and laboratory results from [facility] Awaiting results from the Rheumatoid factor & [facility] Awaiting consult information form [facility] MRI scheduled for Thursday f/u in 2 weeks Ordered: gabapentin, 100 mg = 1 cap(s), Oral, TID, # 90 cap(s), Refills(s) 0, Pharmacy: [facility]/pharmacy #[id number], 170, cm, 09/30/24 9:53:00 EST, [...] Tab gabapen (more content not included)... Normal [facility] Comment on above: Result Comment: Elec tronically Signed By: ESHA BONILLA, KURT Lehman\mayelin\Date and Time Signed: 09/30/24 10:29 EST Vit Aon 09-29-2024 Retinol [Mass/Vol] 68.4 microgram/dL High 18.9-57.3 [facility] Comment on above: Result Comment: Refe rence [...] the Food and Drug Administration. Performed at: [address] [id number] MD Shorty Rodríguez Performed By: #### 1 [id number] ####[facility] [id number] [place] [address] EMG 2 Extremitieson 09-27-19 25 Normal EMG of the le ft upper and lower extremity [facility] Office/Clini c Noteon 09-27-2024 Family [...] she has an appointment today at [facility] for an EMG. She is [...] virus vaccine, inactivated 07/09/2020 Recorded Normal [facility] Comment on above: Result Comment: Elec tronically Signed By: ESHA INTERACTIVE MEDIA SPECIALIST, KURT A\.br\Date and Time Signed: 09/27/24 12:39 EST NV 11-12 Nerveson Normal EMG of the le ft upper and lower extremity [facility] ALL MYOGLOBINon 09-21-2024 Myoglobin [Mass/Vol] 33 ng/mL 9 - 82 ng/mL NO [facility] ALL THYROID STIM HORMONEon 0 09-21-2024 TSH Qn 1.268 m[IU]/L [facility] No Panel Informationon 09-21 [facility] Ambulatory Visit Summaryon 0 09-20-2024 Ambulatory Visit Summary Ambulatory Visit Summary SHAZIA CHOU :1990 Visit Date:09/20/2024 Ambulatory Visit Instructions Your [...] for choosing us for your care. Normal [facility] CHEMISTRYOrdered By: SYSTEM SYSTEM on 09-20-2024 25-hydroxyvitamin [...] for a full Vitamin panel. ER visit [facility] - malnutrition Gave magnesium pill 1 pill [...] Folate Level Iron Level Lab Specimen Collect 82552 Magnesium Level TIBC Calculated Vitamin A Level [...] fasciotomy (06/02/ (more content not included)... Normal [facility] Comment on above: Result Comment: Elec tronically Signed By: KURT BALBUENA CNP\mayelin\Date and Time Signed: 09/20/24 11:15 EST Ferritinon 09-20-2024 Ferritin [Mass/Vol] 10 ng/mL Low 11-307 [facility] Comment on above: Performed By: #### 2 [id number] #### [facility] [address] [place] [address] Folateon 09-20-2024 Folate [Mass/Vol] ng/mL Normal >=6.7 [facility] Comment on above: Performed By: #### 2 [id number] #### [facility] [address] [place] [address] Ironon 09-20-2024 Iron [Mass/Vol] 124 microgram/dL Normal 35-153 [facility] Comment on above: Performed By: #### 2 [id number] #### [facility] [address] [place] [address] Magnesiumon 09-20-2024 Magnesium [Mass/Vol] 2.2 mg/dL Normal 1.3-2.4 [facility] Comment on above: Performed By: #### 2 [id number] #### [facility] [address] [place] [address] TIBC Calculatedon 09-20-2024 Iron binding capacity [Mass/Vol] 455 microgram/dL High 250-400 [facility] Comment on above: Performed By: #### 1 [id number] #### [facility] [address] [place] [address] Transferrin [Mass/Vol] 325 mg/dL Normal 200-370 [facility] Comment on above: Performed By: #### 1 [id number] #### [facility] [address] [place] [address] Vit B12on 09-20-2024 Cobalamin (Vitamin B12) [Mass/Vol] 626 pg/mL Normal 50-1500 [facility] Comment on above: Performed By: #### 2 [id number] #### [facility] [address] [place] [address] Vitamin D 25 Hydroxyon 09-20 25-hydroxyvitamin D3 [Mass/Vol] 43.7 ng/mL Normal 30.0-100.0 [facility] Comment on above: Performed By: #### 5 [id number] #### [facility] [address] [place] [address] Alanine aminotransferase [En zymatic activity/volume] in Serum or PlasmaOrdered By: Sailaja Anderson on 09-15-2024 ALT [Catalytic activity/Vol] Alanine aminotransferase [Enzymatic activity/volume] in Serum or Plasma 7-52 [facility] Albumin [Mass/volume] in Ser um or Plasma by Bromocresol green (BCG) dye binding methoOrdered By: Sailaja Anderson on 09-15-2024 Albumin BCG dye [Mass/Vol] Albumin [Mass/volume] in Serum or Plasma by Bromocresol green (BCG) dye binding metho 3.5-5.7 [facility] Alkaline phosphatase [Enzyma tic activity/volume] in Serum or PlasmaOrdered By: Sailaja Anderson on 09-15-2024 ALP [Catalytic activity/Vol] Alkaline phosphatase [Enzymatic activity/volume] in Serum or Plasma 34-104 [facility] Amphetamine Screen Ql (U)Ord ered By: Sailaja Anderson on 09-15-2024 Amphetamines Ql (U) Amphetamines screen Negativ e [facility] Appearance of UrineOrdered B y: Sailaja Anderson on 09-15-2024 Appearance (U) Urine appearance Clear [facility] Aspartate aminotransferase [ Enzymatic activity/volume] in Serum or PlasmaOrdered By: Sailaja Anderson on 09-15-2024 AST [Catalytic activity/Vol] Aspartate aminotransferase [Enzymatic activity/volume] in Serum or Plasma 13-39 [facility] Bacteria [Presence] in Urine by AutomatedOrdered By: Sailaja Anderson on 09-15-2024 Bacteria Auto Ql (U) Bacteria [Presence] in Urine by Automated None Seen [facility] Barbiturates [Presence] in U rine by Screen methodOrdered By: Sailaja Anderson on 09-15-2024 Barbiturates Screen Ql (U) Barbiturates [Presence] in Urine by Screen method Negative [facility] Basophils Auto (Bld) [#/Vol] Ordered By: Sailaja Anderson on 09-15-2024 Basophils (Bld) [#/Vol] Automated basophil count 0.0-0.2 [facility] Basophils/100 WBC Auto (Bld) Ordered By: Sailaja Anderson on 09-15-2024 Basophils/100 WBC (Bld) Automated basophil % . [facility] Benzodiazepines Screen Ql (U )Ordered By: Sailaja Anderson on 09-15-2024 Benzodiazepines Ql (U) Benzodiazepines [Presence] in Urine by Screen method Negative [facility] Benzoylecgonine [Presence] i n Urine by Screen methodOrdered By: Sailaja Anderson on 09-15-2024 Benzoylecgonine Screen Ql (U) Benzoylecgonine [Presence] in Urine by Screen method Negative [facility] Bilirubin Test strip Ql (U)O rdered By: Sailaja Anderson on 09-15-2024 Bilirubin Ql (U) Bilirubin.total [Presence] in Urine by Test strip Negative [facility] Bilirubin.total [Mass/volume ] in Serum or PlasmaOrdered By: Sailaja Anderson on 09-15-2024 Bilirubin [Mass/Vol] Bilirubin.total [Mass/volume] in Serum or Plasma 0.3-1.[address] [facility] [address] angio headon 09-15-2024 CT angio head [facility] [place] [address] CT Scan Report Signed Patient: Shazia Chou MR#: [id number] : 1990 Acct:[id number] Age/Sex: 33 / F ADM Date: 09/15/24 Loc: ER Room: Type: [facility] ER Attending Dr: Copies to: Sailaja Anderson APRN Ordering Provider: Sailaja Anderson APRN Date of Service: 09/15/24 CT/CT angio head: weakness ([id number]) CT/CT angio neck: weakness ([id number]) CT/CT head/brain wo con: weakness CT head/brain [...] Wiley Shetty M.D.09/15/2024 3:56 PM Dictation Location: [place] [address] Transcribed By: [facility] 09/15/24 9318 Dictated By: Wiley Shetty II, MD 09/15/24 1546 Signed By: 09/15/24 4896 Normal [facility] Calcium [Mass/volume] in Ser um or PlasmaOrdered By: Sailaja Anderson on 09-15-2024 Calcium [Mass/Vol] Calcium [Mass/volume ] in Serum or Plasma 8.6-10.3 [facility] Cannabinoids [Presence] in U rine by Screen methodOrdered By: Sailaja Anderson on 09-15-2024 Cannabinoids Screen Ql (U) Cannabinoids [Presence] in Urine by Screen method Negative [facility] Comment on above: These are unconfirme [...] l [Moles/volume] in Serum or Plasma 21.0-31.0 [facility] Chloride [Moles/volume] in S tushar or PlasmaOrdered By: Sailaja Anderson on 09-15-2024 Chloride [Moles/Vol] Chloride [Moles/vol ume] in Serum or Plasma 98-107 [facility] Color Auto (U)Ordered By: Scott Anderson on 09-15-2024 Color (U) Color of Urine by Auto Yellow [facility] Complete Blood Count Auto Di ffon 09-15-2024 Basophils (Bld) [#/Vol] 0.1 10*3/uL Normal 0.0-0.2 [facility] Comment on above: Result Comment: PERF ORMED BY: [facility] [address] [place] [address] PATHOLOGIST SILICA FILTER OPERATOR CARLOS KNAPP M.D. Performed By: #### M G, ESR, CMP, HS TROP, PTT, TSH3, T4F, ETOH, PT #### [address] Basophils/100 WBC (Bld) 0.7 % Normal . [facility] Comment on above: Performed By: #### M G, ESR, CMP, HS TROP, PTT, TSH3, T4F, ETOH, PT #### [address] Eosinophils (Bld) [#/Vol] 0.2 10*3/uL Normal 0.0-0.45 [facility] Comment on above: Performed By: #### M G, ESR, CMP, HS TROP, PTT, TSH3, T4F, ETOH, PT #### [address] Eosinophils/100 WBC (Bld) 2.4 % Normal . [facility] Comment on above: Performed By: #### M G, ESR, CMP, HS TROP, PTT, TSH3, T4F, ETOH, PT #### [address] Erythrocyte distribution width (RBC) [Ratio] 16.9 % High 11.9-15.3 [facility] Comment on above: Performed By: #### M G, ESR, CMP, HS TROP, PTT, TSH3, T4F, ETOH, PT #### [address] Hematocrit (Bld) [Volume fraction] 35.6 % Normal 34.0-46.4 [facility] Comment on above: Performed By: #### M G, ESR, CMP, HS TROP, PTT, TSH3, T4F, ETOH, PT #### [address] Hemoglobin (Bld) [Mass/Vol] 12.1 g/dL Normal 11.8-15.4 [facility] Comment on above: Performed By: #### M G, ESR, CMP, HS TROP, PTT, TSH3, T4F, ETOH, PT #### [address] Lymphocytes (Bld) [#/Vol] 2.3 10*3/uL Normal 1.00-4.8 [facility] Comment on above: Performed By: #### M G, ESR, CMP, HS TROP, PTT, TSH3, T4F, ETOH, PT #### [address] Lymphocytes/100 WBC (Bld) 26.3 % Normal . [facility] Comment on above: Performed By: #### M G, ESR, CMP, HS TROP, PTT, TSH3, T4F, ETOH, PT #### [address] MCH (RBC) [Entitic mass] 32.5 pg Normal 24.7-34.3 [facility] Comment on above: Performed By: #### M G, ESR, CMP, HS TROP, PTT, TSH3, T4F, ETOH, PT #### [address] MCV (RBC) [Entitic vol] 96.0 fL Normal 80-100 [facility] Comment on above: Performed By: #### M G, ESR, CMP, HS TROP, PTT, TSH3, T4F, ETOH, PT #### [address] Mean Corpuscular HGB Conc 33.9 g/dL Normal 32.0-35.0 [facility] Comment on above: Performed By: #### M G, ESR, CMP, HS TROP, PTT, TSH3, T4F, ETOH, PT #### [address] Monocytes (Bld) [#/Vol] 0.7 10*3/uL Normal 0.0-0.8 [facility] Comment on above: Performed By: #### M G, ESR, CMP, HS TROP, PTT, TSH3, T4F, ETOH, PT #### [place] [address] [place] Monocytes/100 WBC (Bld) 17.55 % Normal 0.00-20.00 [facility] Comment on above: Performed By: #### M G, ESR, CMP, HS TROP, PTT, TSH3, T4F, ETOH, PT #### [address] Monocytes/100 WBC (Bld) 7.8 % Normal . [facility] Comment on above: Performed By: #### M G, ESR, CMP, HS TROP, PTT, TSH3, T4F, ETOH, PT #### [place] [address] [place] Neutrophils (Bld) [#/Vol] 5.4 10*3/uL Normal 1.8-7.7 [facility] Comment on above: Performed By: #### M G, ESR, CMP, HS TROP, PTT, TSH3, T4F, ETOH, PT #### [address] Neutrophils/100 WBC (Bld) 62.8 % Normal . [facility] Comment on above: Performed By: #### M G, ESR, CMP, HS TROP, PTT, TSH3, T4F, ETOH, PT #### [address] NRBC% 0.1 /100{WBC} Normal 0-0.5 [facility] Comment on above: Performed By: #### M G, ESR, CMP, HS TROP, PTT, TSH3, T4F, ETOH, PT #### [place] [address] [place] Platelet mean volume (Bld) [Entitic vol] 9.2 fL Normal 6.3-10.7 [facility] Comment on above: Performed By: #### M G, ESR, CMP, HS TROP, PTT, TSH3, T4F, ETOH, PT #### [place] [address] [place] Platelets (Bld) [#/Vol] 292 10*3/uL Normal 150-450 [facility] Comment on above: Performed By: #### M G, ESR, CMP, HS TROP, PTT, TSH3, T4F, ETOH, PT #### [facility] [address] RBC (Bld) [#/Vol] 3.71 10*6/uL Normal 3.60-5.00 [facility] Comment on above: Performed By: #### M G, ESR, CMP, HS TROP, PTT, TSH3, T4F, ETOH, PT #### [facility] [address] WBC (Bld) [#/Vol] 8.6 10*3/uL Normal 3.8-11.6 [facility] Comment on above: Performed By: #### M G, ESR, CMP, HS TROP, PTT, TSH3, T4F, ETOH, PT #### [address] Comprehensive Metabolic Pane jak 09-15-2024 Albumin [Mass/Vol] 3.8 g/dL Normal 3.5-5.7 [facility] Comment on above: Performed By: #### M G, ESR, CMP, HS TROP, PTT, TSH3, T4F, ETOH, PT #### [address] Albumin/Globulin [Mass ratio] 1.5 {ratio} Normal [facility] Comment on above: Performed By: #### M G, ESR, CMP, HS TROP, PTT, TSH3, T4F, ETOH, PT #### [address] ALP [Catalytic activity/Vol] 53 U/L Normal 34-104 [facility] Comment on above: Performed By: #### M G, ESR, CMP, HS TROP, PTT, TSH3, T4F, ETOH, PT #### [address] ALT [Catalytic activity/Vol] 15 U/L Normal 7-52 [facility] Comment on above: Performed By: #### M G, ESR, CMP, HS TROP, PTT, TSH3, T4F, ETOH, PT #### [address] Anion gap [Moles/Vol] 8.3 mmol/L Normal 6.0-15.0 [facility] Comment on above: Performed By: #### M G, ESR, CMP, HS TROP, PTT, TSH3, T4F, ETOH, PT #### [address] AST [Catalytic activity/Vol] 16 U/L Normal 13-39 [facility] Comment on above: Performed By: #### M G, ESR, CMP, HS TROP, PTT, TSH3, T4F, ETOH, PT #### [address] Bilirubin [Mass/Vol] 0.3 mg/dL Normal 0.3-1.0 [facility] Comment on above: Performed By: #### M G, ESR, CMP, HS TROP, PTT, TSH3, T4F, ETOH, PT #### [address] Calcium [Mass/Vol] 9.0 mg/dL Normal 8.6-10.3 [facility] Comment on above: Performed By: #### M G, ESR, CMP, HS TROP, PTT, TSH3, T4F, ETOH, PT #### [place] [address] [place] Chloride [Moles/Vol] 107 mmol/L Normal 98-107 [facility] Comment on above: Performed By: #### M G, ESR, CMP, HS TROP, PTT, TSH3, T4F, ETOH, PT #### [address] CO2 [Moles/Vol] 26.2 mmol/L Normal 21.0-31.0 [facility] Comment on above: Performed By: #### M G, ESR, CMP, HS TROP, PTT, TSH3, T4F, ETOH, PT #### [place] [address] [place] Creatinine [Mass/Vol] 0.57 mg/dL Low 0.60-1.20 [facility] Comment on above: Performed By: #### M G, ESR, CMP, HS TROP, PTT, TSH3, T4F, ETOH, PT #### [facility] [address] Creatinine Clr Calc Pharmacy 157.80 Normal [facility] Comment on above: Performed By: #### M G, ESR, CMP, HS TROP, PTT, TSH3, T4F, ETOH, PT #### [facility] [address] [place] [address] [place] GFR/1.73 sq M.predicted MDRD (S/P/Bld) [Vol rate/Area] mL/min/{1.73_m2} Normal [facility] Comment on above: Performed By: #### M G, ESR, CMP, HS TROP, PTT, TSH3, T4F, ETOH, PT #### [facility] [address] Globulin (S) [Mass/Vol] 2.6 g/dL Normal [facility] Comment on above: Performed By: #### M G, ESR, CMP, HS TROP, PTT, TSH3, T4F, ETOH, PT #### [facility] [address] Glucose [Mass/Vol] 87 mg/dL Normal 70-100 [facility] Comment on above: Result Comment: [facility] Glucose Reference Range is dependent on time and content of last meal. Glucose of more than 200 mg/dL in a nonstressed, ambulatory subject supports the diagnosis of Diabetes Mellitus. ADA recommended reference range Performed By: #### M G, ESR, CMP, HS TROP, PTT, TSH3, T4F, ETOH, PT #### [facility] [address] Potassium [Moles/Vol] 3.5 mmol/L Normal 3.5-5.1 [facility] Comment on above: Performed By: #### M G, ESR, CMP, HS TROP, PTT, TSH3, T4F, ETOH, PT #### [facility] [address] Protein [Mass/Vol] 6.4 g/dL Normal 6.4-8.9 [facility] Comment on above: Performed By: #### M G, ESR, CMP, HS TROP, PTT, TSH3, T4F, ETOH, PT #### [facility] [address] Sodium [Moles/Vol] 138 mmol/L Normal 136-145 [facility] Comment on above: Performed By: #### M G, ESR, CMP, HS TROP, PTT, TSH3, T4F, ETOH, PT #### [facility] [address] Urea nitrogen [Mass/Vol] 6 mg/dL Low 7-25 [facility] Comment on above: Performed By: #### M G, ESR, CMP, HS TROP, PTT, TSH3, T4F, ETOH, PT #### [address] Creatinine [Mass/volume] in Serum or PlasmaOrdered By: Sailaja Anderson on 09-15-2024 Creatinine [Mass/Vol] Creatinine [Mass/volume] in Serum or Plasma Low 0.60-1.20 [facility] Dipstick and Microscopicon 0 09-15-2024 Appearance (U) Clear Normal Clear [facility] Comment on above: Order Comment: Name Collection Type:: Clean-Voided Midstream Performed By: #### M G, ESR, CMP, HS TROP, PTT, TSH3, T4F, ETOH, PT #### [place] [address] [place] Bacteria,Urine None Seen Normal None Seen [facility] Comment on above: Order Comment: Name Collection Type:: Clean-Voided Midstream Performed By: #### M G, ESR, CMP, HS TROP, PTT, TSH3, T4F, ETOH, PT #### [facility] [address] [place] [id number] [place] Bilirubin,Urine Negative Normal Negative [facility] Comment on above: Order Comment: Name Collection Type:: Clean-Voided Midstream Performed By: #### M G, ESR, CMP, HS TROP, PTT, TSH3, T4F, ETOH, PT #### [address] Color (U) Yellow Normal Yellow [facility] Comment on above: Order Comment: Name Collection Type:: Clean-Voided Midstream Performed By: #### M G, ESR, CMP, HS TROP, PTT, TSH3, T4F, ETOH, PT #### [address] Glucose Ql (U) Normal Normal Normal [facility] Comment on above: Order Comment: Name Collection Type:: Clean-Voided Midstream Performed By: #### M G, ESR, CMP, HS TROP, PTT, TSH3, T4F, ETOH, PT #### [address] Hyaline Casts,Urine None Normal 0-8 [facility] Comment on above: Order Comment: Name Collection Type:: Clean-Voided Midstream Performed By: #### M G, ESR, CMP, HS TROP, PTT, TSH3, T4F, ETOH, PT #### [address] Ketones Ql (U) 1+ High Negative [facility] Comment on above: Order Comment: Name Collection Type:: Clean-Voided Midstream Performed By: #### M G, ESR, CMP, HS TROP, PTT, TSH3, T4F, ETOH, PT #### [address] Leukocyte esterase Test strip Ql (U) Negative Normal Negative [facility] Comment on above: Order Comment: Name Collection Type:: Clean-Voided Midstream Performed By: #### M G, ESR, CMP, HS TROP, PTT, TSH3, T4F, ETOH, PT #### [place] [address] [place] Mucus,Urine Rare Normal [facility] Comment on above: Order Comment: Name Collection Type:: Clean-Voided Midstream Performed By: #### M G, ESR, CMP, HS TROP, PTT, TSH3, T4F, ETOH, PT #### [facility] [address] [place] [address] [place] Nitrite,Urine Negative Normal Negative [facility] Comment on above: Order Comment: Name Collection Type:: Clean-Voided Midstream Performed By: #### M G, ESR, CMP, HS TROP, PTT, TSH3, T4F, ETOH, PT #### [facility] [address] [place] [address] [place] Occult Blood,Urine Negative Normal Negative [facility] Comment on above: Order Comment: Name Collection Type:: Clean-Voided Midstream Performed By: #### M G, ESR, CMP, HS TROP, PTT, TSH3, T4F, ETOH, PT #### [address] pH (U) 7.0 [pH] Normal 5.0-9.0 [facility] Comment on above: Order Comment: Name Collection Type:: Clean-Voided Midstream Performed By: #### M G, ESR, CMP, HS TROP, PTT, TSH3, T4F, ETOH, PT #### [place] [address] [place] Protein,Urine Trace High Negative [facility] Comment on above: Order Comment: Name Collection Type:: Clean-Voided Midstream Performed By: #### M G, ESR, CMP, HS TROP, PTT, TSH3, T4F, ETOH, PT #### [address] RBC,Urine 1 [HPF] Normal 0-4 [facility] Comment on above: Order Comment: Name Collection Type:: Clean-Voided Midstream Performed By: #### M G, ESR, CMP, HS TROP, PTT, TSH3, T4F, ETOH, PT #### [address] Specificy Cerrillos,Urine 1.025 Normal 1.001-1.030 [facility] Comment on above: Order Comment: Name Collection Type:: Clean-Voided Midstream Performed By: #### M G, ESR, CMP, HS TROP, PTT, TSH3, T4F, ETOH, PT #### [address] Squamous Epithelial Cell,Urine 3 [HPF] High 0-2 [facility] Comment on above: Order Comment: Name Collection Type:: Clean-Voided Midstream Performed By: #### M G, ESR, CMP, HS TROP, PTT, TSH3, T4F, ETOH, PT #### [address] Urobilinogen,Urine 2 mg/dL High Normal [facility] Comment on above: Order Comment: Name Collection Type:: Clean-Voided Midstream Performed By: #### M G, ESR, CMP, HS TROP, PTT, TSH3, T4F, ETOH, PT #### [address] WBC,Urine 1 [HPF] Normal 0-4 [facility] Comment on above: Order Comment: Name Collection Type:: Clean-Voided Midstream Performed By: #### M G, ESR, CMP, HS TROP, PTT, TSH3, T4F, ETOH, PT #### [address] Drug Screen,Urineon 09-15-19 25 Amphetamine Screen,Urine Negative Normal Negative [facility] Comment on above: Performed By: #### M G, ESR, CMP, HS TROP, PTT, TSH3, T4F, ETOH, PT #### [address] Barbiturate Screen,Urine Negative Normal Negative [facility] Comment on above: Performed By: #### M G, ESR, CMP, HS TROP, PTT, TSH3, T4F, ETOH, PT #### [address] Benzodiazepines Screen,Urine Negative Normal Negative [facility] Comment on above: Performed By: #### M G, ESR, CMP, HS TROP, PTT, TSH3, T4F, ETOH, PT #### [address] [address] [place] Cannabinoid Screen,Urine Negative Normal Negative [facility] Comment on above: Result Comment: Thes e are unconfirmed results and should not be used for legal purposes. Drug Cut-Off Concentration: AMPH 1000 ng/mL OPAL 200 ng/mL AURELIANO 200 ng/mL COCM 300 ng/mL OP 300 ng/mL PCP 25 ng/mL THC 20 ng/mL PERFORMED BY: [place] [address] PATHOLOGIST SILICA FILTER OPERATOR CARLOS KNAPP M.D. Performed By: #### M G, ESR, CMP, HS TROP, PTT, TSH3, T4F, ETOH, PT #### [address] Cocaine Screen,Urine Negative Normal Negative [facility] Comment on above: Performed By: #### M G, ESR, CMP, HS TROP, PTT, TSH3, T4F, ETOH, PT #### [address] Opiate Screen,Urine Negative Normal Negative [facility] Comment on above: Performed By: #### M G, ESR, CMP, HS TROP, PTT, TSH3, T4F, ETOH, PT #### [address] Phencyclidine Screen,Urine Negative Normal Negative [facility] Comment on above: Performed By: #### M G, ESR, CMP, HS TROP, PTT, TSH3, T4F, ETOH, PT #### [address] ECG 12 lead ECGon 09-15-2024 ECG 12 lead ECG [facility] [place] [address] [place] [address] Electrocardiograph Report Signed Patient: Shazia Chou MR#: [id number] : 1990 Acct:[id number] Age/Sex: 33 / F ADM Date: 09/15/24 Loc: ER Room: Type: [facility] ER Attending Dr: Ordering Provider: Sailaja [...] needs review Confirmed by Agus Hooper DO ([id number]) on 09/15/2024 3:29:15 PM Referred By: Electronically Signed By: Agus Hooper DO Transcribed By: MUS Signed By Agus Hooper DO 5 1529 Normal [facility] Eosinophils Auto (Bld) [#/Vo l]Ordered By: Sailaja Anderson on 09-15-2024 Eosinophils (Bld) [#/Vol] Automated eosinophil count 0.0-0.45 [facility] Eosinophils/100 WBC Auto (Bl d)Ordered By: Sailaja Anderson on 09-15-2024 Eosinophils/100 WBC (Bld) Automated eosinophil % . [facility] Epithelial cells.squamous [# /area] in Urine sediment by Automated countOrdered By: Sailaja Anderson on 09-15-2024 Epithelial cells.squamous Auto (Urine sed) [#/Area] Epithelial cells.squamous [#/area] in Urine sediment by Automated count High 0-2 [facility] Erythrocyte Sedimentation Ra don 09-15-2024 ESR (Bld) [Velocity] 7 mm/h Normal 0-19 [facility] Comment on above: Result Comment: PERF ORMED BY: [place] [address] PATHOLOGIST SILICA FILTER OPERATOR CARLOS KNAPP M.D. Performed By: #### M G, ESR, CMP, HS TROP, PTT, TSH3, T4F, ETOH, PT #### [address] Erythrocyte distribution wid th Auto (RBC) [Ratio]Ordered By: Sailaja Anderson on 09-15-2024 Erythrocyte distribution width (RBC) [Ratio] Erythrocyte distribution width [Ratio] by Automated count High 11.9-15.3 [facility] Erythrocyte sedimentation ra te by Photometric methodOrdered By: Sailaja Anderson on 09-15-2024 ESR Photometric method (Bld) [Velocity] Erythrocyte sedimentation rate by Photometric method 0-19 [facility] Erythrocytes [#/area] in Uri ne sediment by Automated countOrdered By: Sailaja Anderson on 09-15-2024 RBC Auto (Urine sed) [#/Area] Erythrocytes [#/area] in Urine sediment by Automated count 0- [facility] Ethanol [Mass/volume] in Ser um or PlasmaOrdered By: Sailaja Anderson on 09-15-2024 Ethanol [Mass/Vol] Ethanol [Mass/volume ] in Serum or Plasma [facility] Comment on above: Test not performed Ethyl Alcohol Profileon Ethanol [Mass/Vol] mg/dL Normal [facility] Comment on above: Performed By: #### M G, ESR, CMP, HS TROP, PTT, TSH3, T4F, ETOH, PT #### [facility] [address] Percent Ethanol Not performed Normal [facility] Comment on above: Result Comment: PERF ORMED BY: [place] [address] PATHOLOGIST SILICA FILTER OPERATOR CARLOS KNAPP M.D. Performed By: #### M G, ESR, CMP, HS TROP, PTT, TSH3, T4F, ETOH, PT #### [facility] [address] Family Medicine Office/Clini c Noteon 09-15-2024 [...] Mia PERRY Any recent labs: done @ [facility] ER 09/05/24 Health Maintenance UTD: Colonoscopy: NA Mammogram: 12/09/23 [facility] Pelvic/Pap: 12/05 following hysterectomy, states she was [...] her previous pcp in July, to the [facility] ED on 09/05/2024 and again on 09/11/2024. She reports she was at [facility] last week and they performed a bunch of laboratory testing that came back negative. She was seen at in [place] on 09/13/2024 for chest pain and this [...] unspecified site) Reviewed the discharge summary from [facility]- CMP, CRP, ESR, & CBC - WNL Reviewed the Echo from in [place] on the 13 of September- Normal results Awaiting additional records from providers f/u after consult with neurology Ordered: [facility] External Ambulatory Referral 2. Balance problem (R26.89: Other abnormalities of gait and mobility) Reviewed the discharge summary from [facility]- CMP, CRP, ESR, & CBC - WNL Reviewed the Echo from [facility] on the 13 of September- Normal results Awaiting additional records from providers f/u after consult with neurology Ordered: [facility] External Ambulatory Referral 3. Encounter to establish [...] in addres (more content not included)... Normal [facility] Comment on above: Result Comment: Elec tronically Signed By: KURT BALBUENA CNP\mayelin\Date and Time Signed: 09/15/24 14:31 EST Free T4 (Free Thyroxine)on 0 09-15-2024 Free T4 [Mass/Vol] 1.02 ng/dL Normal 0.61-1.12 [facility] Comment on above: Performed By: #### M G, ESR, CMP, HS TROP, PTT, TSH3, T4F, ETOH, PT ####[facility] [id number] [place] [address] [facility] Globulin Calc (S) [Mass/Vol] Ordered By: Sailaja Anderson on 09-15-2024 Globulin (S) [Mass/Vol] Serum globulin measurement by calculation (mass/volume) [facility] Glucose [Mass/volume] in Ser um or PlasmaOrdered By: Sailaja Anderson on 09-15-2024 Glucose [Mass/Vol] Glucose [Mass/volume ] in Serum or Plasma 70-100 [facility] Comment on above: ADA recommended refe [...] [Mass/volume] in Urine by Test strip Normal [facility] HCG ( test) IA.rapi d Ql (U)Ordered By: Sailaja Anderson on 09-15-2024 HCG ( test) Ql (U) Urine human chorionic gonadotropin (hCG) detection by immunoassay [facility] HCG,Urineon 09-15-2024 Beta HCG ( test) Ql (U) Negative Normal [facility] Comment on above: Order Comment: Name Collection Type:: Clean-Voided Midstream Result Comment: PERF ORMED BY: [facility] [address] [place] [address] PATHOLOGIST SILICA FILTER OPERATOR CARLOS KNAPP M.D. Performed By: #### M G, ESR, CMP, HS TROP, PTT, TSH3, T4F, ETOH, PT #### [facility] [address] Hematocrit Auto (Bld) [Volum e fraction]Ordered By: Sailaja Anderson on 09-15-2024 Hematocrit (Bld) [Volume fraction] Hematocrit [Volume Fraction] of Blood by Automated count 34.0-46.4 [facility] Hemoglobin Test strip Ql (U) Ordered By: Sailaja Anderson on 09-15-2024 Hemoglobin Ql (U) Hemoglobin [Presence ] in Urine by Test strip Negative [facility] Hemoglobin [Mass/volume] in BloodOrdered By: Sailaja Anderson on 09-15-2024 Hemoglobin (Bld) [Mass/Vol] Hemoglobin [Mass/volume] in Blood 11.8-15.4 [facility] Hyaline casts [#/area] in Ur ine sediment by Automated countOrdered By: Sailaja Anderson on 09-15-2024 Hyaline casts Auto (Urine sed) [#/Area] Hyaline casts [#/area] in Urine sediment by Automated count 0-8 [facility] INR in Platelet poor plasma by Coagulation assayOrdered By: Sailaja Anderson on 09-15-2024 INR Coag (PPP) [Relative time] INR in Platelet poor plasma by Coagulation assay [facility] Comment on above: INR Therapeutic Rang [...] n Urine by Test strip High Negative [facility] Leukocyte esterase [Presence ] in Urine by Test stripOrdered By: Sailaja Anderson on 09-15-2024 Leukocyte esterase Test strip Ql (U) Leukocyte esterase [Presence] in Urine by Test strip Negative [facility] Leukocytes [#/area] in Urine sediment by Automated countOrdered By: Sailaja Anderson on 09-15-2024 WBC Auto (Urine sed) [#/Area] Leukocytes [#/area] in Urine sediment by Automated count 0-4 [facility] Leukocytes [#/volume] correc caitlin for nucleated erythrocytes in Blood by Automated counOrdered By: Sailaja Anderson on 09-15-2024 WBC corrected for nucl RBC Auto (Bld) [#/Vol] Leukocytes [#/volume] corrected for nucleated erythrocytes in Blood by Automated coun 3.8-11.6 [facility] Lymphocytes Auto (Bld) [#/Vo l]Ordered By: Sailaja Anderson on 09-15-2024 Lymphocytes (Bld) [#/Vol] Lymphocytes [#/volume] in Blood by Automated count 1.00-4.8 [facility] Lymphocytes/100 WBC Auto (Bl d)Ordered By: Sailaja Anderson on 09-15-2024 Lymphocytes/100 WBC (Bld) Lymphocytes/100 leukocytes in Blood by Automated count . [facility] MCH Auto (RBC) [Entitic mass ]Ordered By: Sailaja Anderson on 09-15-2024 MCH (RBC) [Entitic mass] MCH [Entitic mass] by Automated count 24.7-34.3 [facility] MCHC Auto (RBC) [Mass/Vol]Or dered By: Sailaja Anderson on 09-15-2024 MCHC (RBC) [Mass/Vol] MCHC [Mass/volume] by Automated count 32.0-35.0 [facility] MCV Auto (RBC) [Entitic vol] Ordered By: Sailaja Anderson on 09-15-2024 MCV (RBC) [Entitic vol] MCV [Entitic volume] by Automated count 80-100 [facility] Magnesiumon 09-15-2024 Magnesium [Mass/Vol] 1.7 mg/dL Low 1.9-2.7 [facility] Comment on above: Performed By: #### M G, ESR, CMP, HS TROP, PTT, TSH3, T4F, ETOH, PT #### [facility] [address] [place] [address] Magnesium [Mass/volume] in S tushar or PlasmaOrdered By: Sailaja Anderson on 09-15-2024 Magnesium [Mass/Vol] Magnesium [Mass/vol ume] in Serum or Plasma Low 1.9-2.7 [facility] Monocyte distribution width [Entitic volume] in Blood by AutomatedOrdered By: Sailaja Anderson on 09-15-2024 Monocyte distribution width Auto (Bld) [Entitic vol] Monocyte distribution width [Entitic volume] in Blood by Automated 0.00-20.00 [facility] Monocytes Auto (Bld) [#/Vol] Ordered By: Sailaja Anderson on 09-15-2024 Monocytes (Bld) [#/Vol] Automated blood monocyte count 0.0-0.8 [facility] Monocytes/100 WBC Auto (Bld) Ordered By: Sailaja Anderson on 09-15-2024 Monocytes/100 WBC (Bld) Automated monocyte % . [facility] Mucus [Presence] in Urine by AutomatedOrdered By: Sailaja Anderson on 09-15-2024 Mucus Auto Ql (U) Mucus [Presence] in Urine by Automated [facility] Neutrophils Auto (Bld) [#/Vo l]Ordered By: Sailaja Anderson on 09-15-2024 Neutrophils (Bld) [#/Vol] Neutrophils [#/volume] in Blood by Automated count 1.8-7.7 [facility] Neutrophils/100 WBC Auto (Bl d)Ordered By: Sailaja Anderson on 09-15-2024 Neutrophils/100 WBC (Bld) Automated neutrophil % . [facility] Nitrite Test strip Ql (U)Ord ered By: Sailaja Anderson on 09-15-2024 Nitrite Ql (U) Nitrite [Presence] i n Urine by Test strip Negative [facility] No Panel InformationOrdered By: Sailaja Anderson on 09-15-2024 Estimated GFR (CKD-EPI) > 60.0 mL/Min [facility] Creatinine Clearance (Chem 157.80 [facility] Nucleated erythrocytes [Pres ence] in Blood by Automated countOrdered By: Sailaja Anderson on 09-15-2024 Nucleated RBC Auto Ql (Bld) Nucleated erythrocytes [Presence] in Blood by Automated count 0-0.5 [facility] Opiates [Presence] in Urine by Screen methodOrdered By: Sailaja Anderson on 09-15-2024 Opiates Screen Ql (U) Opiates [Presence] in Urine by Screen method Negative [facility] Partial Thromboplastin Timeo n 09-15-2024 aPTT Coag (Bld) [Time] 28.0 s Normal 25.1-36.5 [facility] Comment on above: Result Comment: A he matocrit value greater than 55% may lead to inaccurate results in coagulation testing. Patients having hematocrit values >55% require a special collection tube for coagulation studies. Please contact the laboratory at [phone] for redraw instructions. PERFORMED BY: [place] [address] PATHOLOGIST SILICA FILTER OPERATOR CARLOS KNAPP M.D. Performed By: #### M G, ESR, CMP, HS TROP, PTT, TSH3, T4F, ETOH, PT #### [facility] [address] [place] [address] Phencyclidine Screen Ql (U)O rdered By: Sailaja Anderson on 09-15-2024 Phencyclidine Ql (U) Phencyclidine [Presence] in Urine by Screen method Negative [facility] Platelet mean volume Auto (B ld) [Entitic vol]Ordered By: Sailaja Anderson on 09-15-2024 Platelet mean volume (Bld) [Entitic vol] Platelet mean volume [Entitic volume] in Blood by Automated count 6.3-10.7 [facility] Platelets Auto (Bld) [#/Vol] Ordered By: Sailaja Anderson on 09-15-2024 Platelets (Bld) [#/Vol] Platelets [#/volume] in Blood by Automated count 150-450 [facility] Potassium [Moles/volume] in Serum or PlasmaOrdered By: Sailaja Anderson on 09-15-2024 Potassium [Moles/Vol] Potassium [Moles/volume] in Serum or Plasma 3.5-5.1 [facility] Protein Test strip (U) [Mass /Vol]Ordered By: Sailaja Anderson on 09-15-2024 Protein (U) [Mass/Vol] Protein [Mass/vol ume] in Urine by Test strip High Negative [facility] Protein [Mass/volume] in Ser um or PlasmaOrdered By: Sailaja Anderson on 09-15-2024 Protein [Mass/Vol] Protein [Mass/volume ] in Serum or Plasma 6.4-8.9 [facility] Prothrombin Time INRon 09-15 INR Coag (PPP) [Relative time] 0.9 {INR} Normal [facility] Comment on above: Result Comment: [...] TROP, PTT, TSH3, T4F, ETOH, PT #### [facility] [address] [place] [id number] [facility] PT Coag (PPP) [Time] 10.4 s Normal 9.0-12.9 [facility] Comment on above: Result Comment: A he matocrit value greater than 55% may lead to inaccurate results in coagulation testing. Patients having hematocrit values >55% require a special collection tube for coagulation studies. Please contact the laboratory at [phone] for redraw instructions. Performed By: #### M G, ESR, CMP, HS TROP, PTT, TSH3, T4F, ETOH, PT #### [facility] [address] [place] [id number] [facility] Prothrombin time (PT)Ordered By: Sailaja Anderson on 09-15-2024 PT Coag (PPP) [Time] Prothrombin time (PT) 9.0- 12.9 [facility] Comment on above: A hematocrit value g reater than 55% may lead to inaccurate results in coagulation testing. Patients having hematocrit values >55% require a special collection tube for coagulation studies. Please contact the laboratory at [phone] for redraw instructions. RBC Auto (Bld) [#/Vol]Ordere d By: Sailaja Anderson on 09-15-2024 RBC (Bld) [#/Vol] Erythrocytes [#/volu me] in Blood by Automated count 3.60-5.00 [facility] Serum or plasma albumin/glob ulin mass ratioOrdered By: Sailaja Anderson on 09-15-2024 Albumin/Globulin [Mass ratio] Serum or plasma albumin/globulin mass ratio [facility] Serum or plasma anion gap de terminationOrdered By: Sailaja Anderson on 09-15-2024 Anion gap [Moles/Vol] Serum or plasma an ion gap determination 6.0-15.0 [facility] Sodium [Moles/volume] in Ser um or PlasmaOrdered By: Sailaja Anderson on 09-15-2024 Sodium [Moles/Vol] Sodium [Moles/volume ] in Serum or Plasma 136-145 [facility] Specific gravity Test strip (U) [Rel density]Ordered By: Sailaja Anderson on 09-15-2024 Specific gravity (U) [Rel density] Specific gravity of Urine by Test strip 1.001-1.030 [facility] Thyroid Stimulating Hormoneo n 09-15-2024 TSH Qn 0.73 m[IU]/L Normal 0.45-5.33 [facility] Comment on above: Result Comment: PERF ORMED BY: [facility] [address] [place] [address] PATHOLOGIST SILICA FILTER OPERATOR CARLOS KNAPP M.D. Performed By: #### M G, ESR, CMP, HS TROP, PTT, TSH3, T4F, ETOH, PT ####[facility] [place] [address] [facility] Thyrotropin [Units/volume] i n Serum or PlasmaOrdered By: Sailjaa Anderson on 09-15-2024 TSH Qn Thyrotropin [Units/volume] in Serum or Plasma 0.45-5.33 [facility] Thyroxine (T4) free [Mass/vo lume] in Serum or PlasmaOrdered By: Sailaja Anderson on 09-15-2024 Free T4 [Mass/Vol] Thyroxine (T4) free [Mass/volume] in Serum or Plasma 0.61-1.12 [facility] Troponin I High Sensitivityo n 09-15-2024 Troponin I High Sensitivity 2.3 pg/mL Normal 0.0-15.0 [facility] Comment on above: Result Comment: PERF ORMED BY: [facility] [address] [place] [address] PATHOLOGIST SILICA FILTER OPERATOR CARLOS KNAPP M.D. Performed By: #### M G, ESR, CMP, HS TROP, PTT, TSH3, T4F, ETOH, PT #### [facility] [address] Troponin I.cardiac [Mass/vol ume] in Serum or Plasma by Detection limit <= 0.01 ng/Ordered By: Sailaja Anderson on 09-15-2024 Troponin I.cardiac DL <= 0.01 ng/mL [Mass/Vol] Troponin I.cardiac [Mass/volume] in Serum or Plasma by Detection limit <= 0.01 ng/ 0.0-15.0 [facility] Urea nitrogen [Mass/volume] in Serum or PlasmaOrdered By: Saliaja Anderson on 09-15-2024 Urea nitrogen [Mass/Vol] Urea nitrogen [Mass/volume] in Serum or Plasma Low 7-25 [facility] Urobilinogen Test strip (U) [Mass/Vol]Ordered By: Sailaja Anderson on 09-15-2024 Urobilinogen (U) [Mass/Vol] Urobilinogen [Mass/volume] in Urine by Test strip High Normal [facility] WBC Auto (Bld) [#/Vol]Ordere d By: Sailaja Anderson on 09-15-2024 WBC (Bld) [#/Vol] Leukocytes [#/volume ] in Blood by Automated count 3.8-11.6 [facility] X-ray reportOrdered By: Wiley Shetty on 09-15-2024 Study report [facility] [place] [address] [place] [address] XRay Report Signed Patient: Shazia Chou MR#: [id number] : 1990 Acct:[id number] Age/Sex: 33 / F ADM Date: Loc: ER Room: Type: [facility] ER Attending Dr: Copies to: Sailaja [...] Wiley Shetty M.D.09/15/2024 3:56 PM Dictation Location: [facility] Transcribed By: [facility] 09/15/24 155 Dictated By: Wiley Shetty II, MD 09/15/24 155 Signed By: 09/15/24 1556 [facility] Work Phone: XR chest 2V*on 09-15-2024 XR chest 2V* [facility] [place] [address] [place] [address] XRay Report Signed Patient: Shazia Chou MR#: [id number] : 1990 Acct:[id number] Age/Sex: 33 / F ADM Date: 09/15/24 Loc: ER Room: Type: [facility] ER Attending Dr: Copies to: Sailaja [...] Wiley Shetty M.D.09/15/2024 3:56 PM Dictation Location: [place] [address] Transcribed By: MARKY 09/15/241555 Dictated By: Wiley Shetty II, MD 09/15/241555 Signed By: 09/15/24 155 Normal [facility] aPTT in Platelet poor plasma by Coagulation assayOrdered By: Sailaja Anderson on 09-15-2024 aPTT Coag (PPP) [Time] Activated partial thromboplastin time (aPTT) in platelet poor plasma by coagulation a 25.1-36.5 [facility] Comment on above: A hematocrit value g reater than 55% may lead to inaccurate results in coagulation testing. Patients having hematocrit values >55% require a special collection tube for coagulation studies. Please contact the laboratory at [phone] for redraw instructions. pH Test strip (U)Ordered By: Sailaja Anderson on 09-15-2024 pH (U) pH of Urine by Test strip 5.0-9.0 [facility] TRANSTHORACIC ECHO (TTE) COM PLETEon 09-13-2024 TRANSTHORACIC ECHO (TTE) COMPLETE [address], [address] [address] TRANSTHORACIC ECHOCARDIOGRAM REPORT Patient Name: SHAZIA JOSÉ ANTONIO Reading Physician: [id number] Adithya Boswell MD, [facility] Study Date: 09/13/2024 Ordering Provider: [id number] ALEAH HOWARD MRN/PID: [id number] Fellow: Nurse: Date of /Age: 4 1990 / 33 years Status Controller: Julissa Licona RDCS, RVT Gender Assigned at F Additional Staff: : Height: 170.18 cm Admit Date: Weight: 85.28 kg Admission Status: BSA / BMI: 1.97 m2 / 29.45 Department Location: [address] Blood Pressure: 118 /76 mmHg Study Type: TRANSTHORACIC ECHO (TTE) COMPLETE Diagnosis/ICD: Angina pectoris, unspecified-I20.9; Shortness of breath-R06.02; Palpitations-R00.2; Family history of ischemic heart disease and other diseases of the circulatory system-Z82.49; Essential (primary) hypertension-I10 Indication: Tobacco Abuse, Anxiety/Depression, Pseudotumor Cerebri, ETOH Abuse, Bipolar Disorder, History of Gastric Bypass CPT Codes: Echo Complete w Full Doppler-10616 Study Detail: The following Echo studies were [...] 0.7 m/s (0.6-0.9m/s) PV Max P.1 mmHg [id number] Adithya Boswell MD, FACC Electronically signed on 09/13/2024 at 4:00:19 PM Final Normal [facility] Heart TransthoracicOrdere d By: Adithya Boswell on 09-13-2024 Aortic Valve Area by Continuity of Peak Velocity 2.48 cm2 [facility] Work Phone: Aortic Valve Area by Continuity of VTI 2.66 cm2 [facility] Work Phone: AV mn grad 4 mmHg [facility] Work Phone: AV pk grad 8 mmHg [facility] Work Phone: [phone] AV pk joellen 1.43 m/s [facility] Work Phone: [phone] LV A4C EF 67.8 [facility] Work Phone: [phone] LV Biplane EF 68 % [facility] Work Phone: [phone] LV EF 68 % [facility] Work Phone: LVIDd 5.01 cm [facility] Work Phone: [phone] LVOT diam 2.2 cm [facility] Work Phone: [phone] MV avg E/e' ratio 6.6 [facility] Work Phone: [phone] MV E/A ratio 1.52 [facility] Work Phone: [phone] RVSP 27 mmHg [facility] Work Phone: [phone] [facility] Work Phone: US Heart Transthoracicon [facility] [address], [address], [place] [address] TRANSTHORACIC ECHOCARDIOGRAM REPORT Patient Name: SHAZIA CHOU Reading Physician: [id number] Adithya Boswell MD, [facility] Study Date: 09/13/2024 Ordering Provider: [id number] ALEAH HOWARD MRN/PID: [id number] Fellow: Nurse: Date of /Age: 4 1990 / 33 years Status Controller: Julissa Licona RDCS, RVT Gender Assigned at F Additional Staff: : Height: 170.18 cm Admit Date: Weight: 85.28 kg Admission Status: BSA / BMI: 1.97 m2 / 29.45 Department Location: [facility]/[address] Blood Pressure: 118 /76 mmHg Study Type: TRANSTHORACIC ECHO (TTE) COMPLETE Diagnosis/ICD: Angina pectoris, unspecified-I20.9; Shortness of breath-R06.02; Palpitations-R00.2; Family history of ischemic heart disease and other diseases of the circulatory system-Z82.49; Essential (primary) hypertension-I10 Indication: Tobacco Abuse, Anxiety/Depression, Pseudotumor Cerebri, ETOH Abuse, Bipolar Disorder, History of Gastric Bypass CPT Codes: Echo Complete w Full Doppler-[id number] Study Detail: The following Echo studies were [...] included)... Adithya Jenkins M D - 09/13/[address], [address], [place] [address] TRANSTHORACIC ECHOCARDIOGRAM REPORT Patient Name: SHAZIA CHOU Reading Physician: [id number] Adithya Boswell MD, [facility] Study Date: 09/13/2024 Ordering Provider: [id number] ALEAH HOWARD MRN/PID: [id number] Fellow: Nurse: Date of /Age: 4 1990 / 33 years Status Controller: Julissa Licona RDCS, T Gender Assigned at F Additional Staff: : Height: 170.18 cm Admit Date: Weight: 85.28 kg Admission Status: BSA / BMI: 1.97 m2 / 29.45 Department Location: [facility] kg/m2 [facility] Blood Pressure: 118 /76 mmHg Study Type: TRANSTHORACIC ECHO (TTE) COMPLETE Diagnosis/ICD: Angina pectoris, unspecified-I20.9; Shortness of breath-R06.02; Palpitations-R00.2; Family history of ischemic heart disease and other diseases of the circulatory system-Z82.49; Essential (primary) hypertension-I10 Indication: Tobacco Abuse, Anxiety/Depression, Pseudotumor Cerebri, ETOH Abuse, Bipolar Disorder, History of Gastric Bypass CPT Codes: Echo Complete w Full Doppler-74561 Study Detail: The following Echo studies were [...] 0.7 m/s (0.6-0.9m/s) PV Max P.1 mmHg 15997 Adithya Boswell MD, [facility] Electronically signed on 09/13/2024 at 4:00:19 PM Final [facility] Work Phone: EBV Early Abon 08-19-2024 EBV early diffuse IgG Qn (S) <9.0 Invalid Interpretation Code 0.0-8.9 [facility] Comment on above: Result Comment: Nega tive < 9.0 Equivocal 9.0 - 10.9 Positive >10.9 Performed at: [facility] [address], [place] [id number] PhD Cordelia Madera Performed By: #### 1 [id number] #### [facility] [address] [place] [address] CHEMISTRYOrdered By: SYSTEM SYSTEM on 08-18-2024 Ferritin [...] By: Rayne Pinto on 08-18-2024 Test Code 113624 1 Invalid Interpretation Code [facility] SendOuts Test Name a1C Invalid Interpretation Code [facility] SendOutsSS ECG 12 Leadon 08-16-2024 [facility] Work Phone: 25([place])D3 [facility] 25-hydroxyvitamin D3 [Mass/Vol] 41.9 ng/mL Normal 31.0-80.0 [facility] Comment on above: Order Comment: Philip [place] Type: BLOOD SPECIMENOrdering Facility: [facility] Address: [address] [place] [address] Result Comment: Clas sification of 25 [place] Vitamin D status: Deficiency/Insufficiency: < or = 30 ng/ml. Sufficiency/Optimal Levels: 31-80 ng/mL Toxicity: > 100 ng/mL. Test performed by chemiluminescent immunoassay. Performed By: #### 1 989-3 ####[facility] LABCL[facility] [id number] [place] [address] [place] CBC W Auto Differential pane l (Bld)on 07-26-2024 Basophils (Bld) [#/Vol] 0.05 10*3/uL Normal <0.11 [facility] Comment on above: Order Comment: Speci men Type: BLOOD SPECIMEN Ordering Facility: [facility] Address: [address] [place] [address] Performed By: #### 5 7021-8 #### [facility] CLIA [id number] [address] [place] [address] Basophils/100 WBC (Bld) 0.4 % Normal [facility] Comment on above: Order Comment: Speci men Type: BLOOD SPECIMEN Ordering Facility: [facility] Address: [address] [place] [address] Performed By: #### 5 7021-8 #### [facility] CLIA [id number] [address] [place] [address] 46546 Differential cell count method Nom (Bld) Auto Normal [facility] Comment on above: Order Comment: Speci men Type: BLOOD SPECIMEN Ordering Facility: [facility] Address: [address] [place] [address] Performed By: #### 5 7021-8 #### [facility] CLIA [id number] [address] [place] [address]262 Eosinophils (Bld) [#/Vol] 0.29 10*3/uL Normal <0.46 [facility] Comment on above: Order Comment: Speci men Type: BLOOD SPECIMEN Ordering Facility: [facility] Address: [address] [place] [address] Performed By: #### 5 7021-8 #### [facility] CLIA [id number] [address] [place] [address]29 Eosinophils/100 WBC (Bld) 2.3 % Normal [facility] Comment on above: Order Comment: Speci men Type: BLOOD SPECIMEN Ordering Facility: [facility] Address: [address] [place] [address] Performed By: #### 5 7021-8 #### [facility] CLIA [id number] [address] [place] [address] 67616 Erythrocyte distribution width (RBC) [Ratio] 16.4 % High 11.5-15.0 [facility] Comment on above: Order Comment: Speci men Type: BLOOD SPECIMEN Ordering Facility: [facility] Address: [address] [place] [address] Performed By: #### 5 7021-8 #### [facility] CLIA [id number] [address] [place] [address] 22289 Hematocrit (Bld) [Volume fraction] 38.2 % Normal 36.0-46.0 [facility] Comment on above: Order Comment: Speci men Type: BLOOD SPECIMEN Ordering Facility: [facility] Address: [address] [place] [address] Performed By: #### 5 7021-8 #### [facility] CLIA [id number] [address] [place] [address] 77788 Hemoglobin (Bld) [Mass/Vol] 13.0 g/dL Normal 11.5-15.5 [facility] Comment on above: Order Comment: Speci men Type: BLOOD SPECIMEN Ordering Facility: [facility] Address: [address] [place] [address] Performed By: #### 5 7021-8 #### [facility] CLIA [id number] [address] [place] [address] 16648 Immature granulocytes (Bld) [#/Vol] 0.04 10*3/uL Normal <0.10 [facility] Comment on above: Order Comment: Speci men Type: BLOOD SPECIMEN Ordering Facility: [facility] Address: [address] [place] [address] Performed By: #### 5 7021-8 #### [facility] CLIA [id number] [address] [place] [address] 52101 Immature granulocytes/100 WBC (Bld) 0.3 % Normal [facility] Comment on above: Order Comment: Speci men Type: BLOOD SPECIMEN Ordering Facility: [facility] Address: [address] [place] [address] Performed By: #### 5 7021-8 #### [facility] CLIA [id number] [address] [place] [address] 20507 Lymphocytes (Bld) [#/Vol] 1.78 10*3/uL Normal 1.00-4.00 [facility] Comment on above: Order Comment: Speci men Type: BLOOD SPECIMEN Ordering Facility: [facility] Address: [address] [address] Performed By: #### 5 7021-8 #### [facility] CLIA [id number] [address] [place] [address] 50831 Lymphocytes/100 WBC (Bld) 14.4 % Normal [facility] Comment on above: Order Comment: Speci men Type: BLOOD SPECIMEN Ordering Facility: [facility] Address: [address] [place] [address] Performed By: #### 5 7021-8 #### [facility] CLIA [id number] [address] [place] [address] 84188 MCH (RBC) [Entitic mass] 31.4 pg Normal 26.0-34.0 [facility] Comment on above: Order Comment: Speci men Type: BLOOD SPECIMEN Ordering Facility: [facility] Address: [address] [place] [address] Performed By: #### 5 7021-8 #### [facility] CLIA [id number] [address] [place] [address] 56786 MCHC (RBC) [Mass/Vol] 34.0 g/dL Normal 30.5-36.0 [facility] Comment on above: Order Comment: Speci men Type: BLOOD SPECIMEN Ordering Facility: [facility] Address: [address] [place] [address] Performed By: #### 5 7021-8 #### [facility] CLIA [id number] [address] [place] [address] 11049 MCV (RBC) [Entitic vol] 92.3 fL Normal 80.0-100.0 [facility] Comment on above: Order Comment: Speci men Type: BLOOD SPECIMEN Ordering Facility: [facility] Address: [address] [place] [address] Performed By: #### 5 7021-8 #### [facility] CLIA [id number] [address] [place] [address] Monocytes (Bld) [#/Vol] 0.62 10*3/uL Normal <0.87 [facility] Comment on above: Order Comment: Speci men Type: BLOOD SPECIMEN Ordering Facility: [facility] Address: [address] [place] [address] Performed By: #### 5 7021-8 #### [facility] CLIA [id number] [address] [place] [address] 69114 Monocytes/100 WBC (Bld) 5.0 % Normal [facility] Comment on above: Order Comment: Speci men Type: BLOOD SPECIMEN Ordering Facility: [facility] Address: [address] [place] [address] Performed By: #### 5 7021-8 #### [facility] CLIA [id number] [address] [place] [address] 17824 Neutrophils (Bld) [#/Vol] 9.58 10*3/uL High 1.45-7.50 [facility] Comment on above: Order Comment: Speci men Type: BLOOD SPECIMEN Ordering Facility: [facility] Address: [address] [place] [address] Performed By: #### 5 7021-8 #### [facility] CLIA [id number] [address] [place] [address] 70880 Neutrophils/100 WBC (Bld) 77.6 % Normal [facility] Comment on above: Order Comment: Speci men Type: BLOOD SPECIMEN Ordering Facility: [facility] Address: [address] [place] [address] Performed By: #### 5 7021-8 #### [facility] CLIA [id number] [address] [place] [address] 09433 Nucleated RBC (Bld) [#/Vol] 10*3/uL Normal <0.01 [facility] Comment on above: Order Comment: Speci men Type: BLOOD SPECIMEN Ordering Facility: [facility] Address: [address] [place] [address] Performed By: #### 5 7021-8 #### [facility] CLIA [id number] [address] [place] [address] 55279 Nucleated RBC/100 WBC (Bld) [Ratio] 0.0 /100 WBC Normal [facility] Comment on above: Order Comment: Speci men Type: BLOOD SPECIMEN Ordering Facility: [facility] Address: [address] [place] [address] Performed By: #### 5 7021-8 #### [facility] CLIA [id number] [address] [place] [address] 00383 Platelet mean volume (Bld) [Entitic vol] 10.8 fL Normal 9.0-12.7 [facility] Comment on above: Order Comment: Speci men Type: BLOOD SPECIMEN Ordering Facility: [facility] Address: [address] [place] [address] Performed By: #### 5 7021-8 #### [facility] CLIA [id number] [address] [place] [address] 56780 Platelets (Bld) [#/Vol] 302 10*3/uL Normal 150-400 [facility] Comment on above: Order Comment: Speci men Type: BLOOD SPECIMEN Ordering Facility: [facility] Address: [address] [address] Performed By: #### 5 7021-8 #### [facility] CLIA [id number] [address] [place] [address] 38597 RBC (Bld) [#/Vol] 4.14 10*6/uL Normal 3.90-5.20 [facility] Comment on above: Order Comment: Speci men Type: BLOOD SPECIMEN Ordering Facility: [facility] Address: [address] [place] [address] Performed By: #### 5 7021-8 #### [facility] CLIA [id number] [address] [place] [address] 86847 WBC (Bld) [#/Vol] 12.36 10*3/uL High 3.70-11.00 [facility] Comment on above: Order Comment: Speci men Type: BLOOD SPECIMEN Ordering Facility: [facility] Address: [address] [place] [address] Performed By: #### 5 7021-8 #### [facility] CLIA [id number] [address] [place] [address] Comprehensive metabolic 2000 panelon 07-26-2024 Albumin [Mass/Vol] 4.7 g/dL Normal 3.9-4.9 [facility] Comment on above: Order Comment: Speci men Type: BLOOD SPECIMEN Ordering Facility: [facility] Address: [address] [place] [address] Performed By: #### 5 5454-3 #### [facility] CLIA [id number] [address] [place] [address] [place] ALP [Catalytic activity/Vol] 64 U/L Normal 34-123 [facility] Comment on above: Order Comment: Speci men Type: BLOOD SPECIMEN Ordering Facility: [facility] Address: [address] [place] [address] Performed By: #### 5 5454-3 #### [facility] CLIA [id number] [address] [place] [address] [place] ALT [Catalytic activity/Vol] 13 U/L Normal 7-38 [facility] Comment on above: Order Comment: Speci men Type: BLOOD SPECIMEN Ordering Facility: [facility] Address: [address] [place] [address] Performed By: #### 5 5454-3 #### [facility] CLIA [id number] [address] [place] [address] [place] Anion gap [Moles/Vol] 11 mmol/L Normal 8-15 [facility] Comment on above: Order Comment: Speci men Type: BLOOD SPECIMEN Ordering Facility: [facility] Address: [address] [place], [place] [address] Performed By: #### 5 5454-3 #### [facility] CLIA [id number] [address] [place] [address] [place] AST [Catalytic activity/Vol] 20 U/L Normal 13-35 [facility] Comment on above: Order Comment: Speci men Type: BLOOD SPECIMEN Ordering Facility: [facility] Address: [address] [place] [address] Performed By: #### 5 5454-3 #### [facility] CLIA [id number] [address] [place] [address] [place] Bilirubin [Mass/Vol] 0.2 mg/dL Normal 0.2-1.3 [facility] Comment on above: Order Comment: Speci men Type: BLOOD SPECIMEN Ordering Facility: [facility] Address: [address] [place] [address] Performed By: #### 5 5454-3 #### [facility] CLIA [id number] [address] [place] [address] [place] Calcium [Mass/Vol] 9.6 mg/dL Normal 8.5-10.2 [facility] Comment on above: Order Comment: Speci men Type: BLOOD SPECIMEN Ordering Facility: [facility] Address: [address] [place] [address] Performed By: #### 5 5454-3 #### [facility] CLIA [id number] [address] [place] [address] [place] Chloride [Moles/Vol] 106 mmol/L Normal 98-107 [facility] Comment on above: Order Comment: Speci men Type: BLOOD SPECIMEN Ordering Facility: [facility] Address: [address] [place] [address] Performed By: #### 5 5454-3 #### [facility] CLIA [id number] [address] [place] [address] [place] CO2 [Moles/Vol] 22 mmol/L Normal 22-30 [facility] Comment on above: Order Comment: Speci men Type: BLOOD SPECIMEN Ordering Facility: [facility] Address: [address] [place] [address] Performed By: #### 5 5454-3 #### [facility] CLIA [id number] [address] [place] [address] [place] Creatinine [Mass/Vol] 0.69 mg/dL Normal 0.58-0.96 [facility] Comment on above: Order Comment: Speci men Type: BLOOD SPECIMEN Ordering Facility: [facility] Address: [address] [place] [address] Performed By: #### 5 5454-3 #### [facility] CLIA [id number] [address] [place] [address] [place] Creatinine and Glomerular filtration rate.predicted panel (S/P/Bld) 116 mL/min/1.73m??? Normal >=60 [facility] Comment on above: Order Comment: Speci men Type: BLOOD SPECIMEN Ordering Facility: [facility] Address: [address] [place] [address] Result Comment: Brenda mated Glomerular Filtration Rate [...] GFR. Performed By: #### 5 5454-3 #### [facility] CLIA [id number] [address] [place] [address] [place] Glucose [Mass/Vol] 91 mg/dL Normal 74-99 [facility] Comment on above: Order Comment: Speci men Type: BLOOD SPECIMEN Ordering Facility: [facility] Address: [address] [place] [address] Result Comment: The [place] Diabetes Association (ADA) provides guidance for cutoff [...] Standards of Medical Care in Diabetes 2016, [place] [employer]. Diabetes Care. 2016.39(Suppl 1). Performed By: #### 5 5454-3 #### [facility] CLIA [id number] [address] [place] [address] [place] Potassium [Moles/Vol] 4.3 mmol/L Normal 3.7-5.1 [facility] Comment on above: Order Comment: Speci men Type: BLOOD SPECIMEN Ordering Facility: [facility] Address: [address] [place] [address] Performed By: #### 5 5454-3 #### [facility] CLIA [id number] [address] [place] [address] [place] Protein [Mass/Vol] 7.3 g/dL Normal 6.3-8.0 [facility] Comment on above: Order Comment: Speci men Type: BLOOD SPECIMEN Ordering Facility: [facility] Address: [address] [place] [address] Performed By: #### 5 5454-3 #### [facility] CLIA [id number] [address] [place] [address] [place] Sodium [Moles/Vol] 139 mmol/L Normal 136-144 [facility] Comment on above: Order Comment: Speci men Type: BLOOD SPECIMEN Ordering Facility: [facility] Address: [address] [place] [address] Performed By: #### 5 5454-3 #### [facility] CLIA [id number] [address] [place] [address] [place] Urea nitrogen [Mass/Vol] 9 mg/dL Normal 7-21 [facility] Comment on above: Order Comment: Speci men Type: BLOOD SPECIMEN Ordering Facility: [facility] Address: [address] [place] [address] Performed By: #### 5 5454-3 #### [facility] CLIA [id number] [address] [place] [address] [place] Ferritin SerPl-ncon 2023 Ferritin [Mass/Vol] 17.5 ng/mL Normal 14.7-205.1 [facility] Comment on above: Order Comment: Speci men Type: BLOOD SPECIMENOrdering Facility: [facility] Address: [address] [place] [address] Performed By: #### 2 731-8, 69837-8, 6-4 ####[facility] LAB[facility]IA [id number] [place] [address] [place] Iron and Iron binding capaci ty panelon 07-26-2024 Iron [Mass/Vol] 114 ug/dL Normal 41-186 [facility] Comment on above: Order Comment: Speci men Type: BLOOD SPECIMENOrdering Facility: [facility] Address: [address] [place] [address] Performed By: #### 2 731-8, 71649-4, 6-4 ####[facility] [id number] [place] [address] [place] Iron binding capacity [Mass/Vol] 360 ug/dL Normal 232-386 [facility] Comment on above: Order Comment: Speci men Type: BLOOD SPECIMENOrdering Facility: [facility] Address: [address] [place] [address] Performed By: #### 2 731-8, 53129-4, 6-4 ####[facility] [id number] [place] [address] [place] Iron/TIBC [Molar ratio] 31.7 % Normal 15.0-57.0 [facility] Comment on above: Order Comment: Speci men Type: BLOOD SPECIMENOrdering Facility: [facility] Address: [address] [place] [address] Performed By: #### 2 731-8, 59274-6, 2276-4 ####[facility]IA [id number] [place] [address] [place] P[facility] Parathyrin.intact [Mass/Vol] 17 pg/mL Normal 15-65 [facility] Comment on above: Order Comment: Speci men Type: BLOOD SPECIMENOrdering Facility: [facility] Address: [address] [place] [address] Performed By: #### 2 731-8, 86340-0, 2276-4 ####[facility]IA [id number] [address] [place] CNOVon 07-25-2024 [facility] SHAZIA CHOU ([id number]) 1990 F Date Time Provider Department 07/25/24 3:00 PM TEVIN CARSON [facility] During your visit today, we recorded the following information about you: Pulse Blood pressure Weight 67/minute 122/72 83.8 kg Tevin Carson DO 07/25/2024 4:57 PM Signed [facility] Visit Assessment and Plan 1. [...] appointment. 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 ROS: As per HPI. [...] for Visi (more content not included)... Normal [facility] Ernesto 07-13-2024 [facility] Telephone (RADMN) SHAZIA CHOU ([id number]) 1990 F Date Time Provider Department 07/13/24 [...] mg by mouth daily at bedtime. - ehqyrzuukyzi-ohu-ltbs-F A-vit K (BARIATRIC MULTIVITAMINS) 45 mg iron- [...] Status:Closed by PATRICIA TATE on 07/13/24 Normal [facility] DBT Breast - left diagnostic [...] Alexandra Son M.D. Electronically signed on: 07/11/2024 Jtac: SERGIO Transcribe Date/Time: Jul 11 2024 8:53A Dictated by: ALEXANDRA SON MD This examination was interpreted and the report reviewed and electronically signed by: ALEXANDRA SON MD on Jul 11 2024 9:45AM [facility] DIVISION OF RADIOLOGY * * *Final Report* * * DATE OF EXAM: Jul 11 2024 9:17AM [facility] 0628 - LINDA MELVIN LEY LT / PROCEDURE REASON: Abnormal mammogram of left breast * * * * Physician Interpretation * * * * RESULT: [facility] [address] [place] [address] HISTORY: 33 year old patient presents for [...] obscure small masses. DIVISION OF RADIOLOGY Provider, [facility] Mahnaz [facility] - 07/11/2024 * * *Final Report* * * DATE OF EXAM: Jul 11 2024 9:17AM [facility] 0628 - LINDA MELVIN LEY / PROCEDURE REASON: Abnormal mammogram of left breast * * * * Physician Interpretation * * * * RESULT: [facility] [address] [place] [address] HISTORY: 33 year old patient presents for [...] Alexandra Son M.D. Electronically signed on: 07/11/2024 Jtac: SERGIO Transcrialfonzo Date/Time: Jul 11 2024 8:53A Dictated by: ALEXANDRA SON MD This examination was interpreted and the report reviewed and electronically signed by: ALEXANDRA SON MD on Jul 11 2024 9:45AM EST [facility] Radiology Study observation (narrative) [facility] LINDA Mesa AV LTon 024 LINDA MELVIN Moshe AV LT * * *Final Report* * * * * * SEE BOTTOM OF REPORT FOR ADDENDED TEXT * * * DATE OF EXAM: Jul 11 2024 9:17AM [facility] 0628 - LINDA GAMALIELJose CASTROO LT / PROCEDURE REASON: Abnormal mammogram of left breast * * * * Physician Interpretation * * * * RESULT: [facility] [address] [place] [id number] - - - - - - - [...] Alexandra Son M.D. Electronically signed on: 07/11/2024 Jtac: SERGIO Transcribe Date/Time: Jul 11 2024 8:53A Dictated by: ALEXANDRA SON MD This examination was interpreted and the report reviewed and electronically signed by: ALEXANDRA SON MD on Jul 11 2024 9:45AM EST This document has been addended by: ALEXANDRA SON MD on Jul 13 2024 3:56PM EST [id number] Normal [facility] BIOPSY BREAST LTon [facility] US BIOPSY BREAST LT * * *Final Report* * * * * * SEE BOTTOM OF REPORT FOR ADDENDED TEXT * * * DATE OF EXAM: Jul 11 2024 9:15AM [facility] 0597 - [facility] US BIOPSY BREAST LT / PROCEDURE REASON: Abnormal mammogram of left breast * * * * Physician Interpretation * * * * RESULT: [facility] [address] [place] [id number] - - - - - - - [...] Alexandra Son M.D. Electronically signed on: 07/11/2024 Jtac: SERGIO Transcribe Date/Time: Jul 11 2024 8:52A Dictated by: ALEXANDRA SON MD This examination was interpreted and the report reviewed and electronically signed by: ALEXANDRA SON MD on Jul 11 2024 9:45AM EST This document has been addended by: ALEXANDRA SON MD on Jul 13 2024 3:56PM EST [id number] [facility] No Panel InformationOrdered By: Ccf Provider on 07-11-2024 [facility] SURGICAL PATHOLOGYon 024 CASE REPORT [facility] Comment on above: Order Comment: Speci men Type: BLOOD SPECIMEN Ordering Facility: [facility] Address: [address] [place] [address] Result Comment: Surg ica Pathology Report Case: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 hemoglobin (Bld) [Mass/Vol] 111 mg/dL Normal [facility] Comment on above: Order Comment: Speci men Type: BLOOD SPECIMEN Ordering Facility: [facility] Address: [address] [place] [address] Result Comment: eAG: (Estimated average glucose) is a calculated value from HgbA1c and is customer development representative of the average blood glucose level in the last 2-3 month period. Performed By: #### 5 5454-3 #### [facility] CLIA [id number] [address] [place] [address] [place] HbA1c (Bld) [Mass fraction] 5.5 % Normal 4.3-5.6 [facility] Comment on above: Order Comment: Speci men Type: BLOOD SPECIMEN Ordering Facility: [facility] Address: [address] [place] [address] Result Comment: [place] Diabetes Association guidelines indicate that patients with HgbA1c in the range 5.7-6.4% are at increased risk for development of diabetes, and intervention by lifestyle modification may be beneficial. HgbA1c greater or equal to 6.5% is considered diagnostic of diabetes. Performed By: #### 5 5454-3 #### [facility] CLIA [id number] [address] [place] [address] [place] Lipid 1996 panelon 4 Cholesterol [Mass/Vol] 142 mg/dL Normal <200 [facility] Comment on above: Order Comment: Speci men Type: BLOOD SPECIMEN Ordering Facility: [facility] Address: [address] [place] [address] Result Comment: <200 mg/dL, Desirable 200-239 mg/dL, Borderline high >239 mg/dL, High Performed By: #### 5 5454-3 #### [facility] CLIA [id number] [address] [place] [address] [place] Cholesterol in HDL [Mass/Vol] 72 mg/dL Normal >39 [facility] Comment on above: Order Comment: Cecili men Type: BLOOD SPECIMEN Ordering Facility: [facility] Address: [address] [place] [address] Result Comment: 40-5 9 mg/dL, Acceptable >59 mg/dL, High: Negative risk factor for coronary heart disease <40 mg/dL, Low: Positive risk factor for coronary heart disease Performed By: #### 5 5454-3 #### [facility] CLIA [id number] [address] [place] [address] STATES [facility] Cholesterol in LDL [Mass/Vol] 60 mg/dL Normal <100 [facility] Comment on above: Order Comment: Speci men Type: BLOOD SPECIMEN Ordering Facility: [facility] Address: [address] [place] [address] Result Comment: <100 mg/dL, Optimal 100-129 mg/dL, Near optimal/above optimal 130-159 mg/dL, Borderline high 160-189 mg/dL, High >189 mg/dL, Very high Secondary prevention optimal LDL Cholesterol levels are recommended to be < 70 mg/dL Performed By: #### 5 5454-3 #### [facility] CLIA [id number] [address] [place] [address] [place] Cholesterol in LDL/Cholesterol in HDL [Mass ratio] 0.83 {ratio} Normal <2.54 [facility] Comment on above: Order Comment: Philip [place] Type: BLOOD SPECIMEN Ordering Facility: [facility] Address: [address] [place] [address] Result Comment: Eric kasper: 1. National Cholesterol Education Program ATP III Guideline At-A-Glance Quick Desk Reference: National Heart, Lung, and Blood [place]. National Institutes of Health. 2001: NIH Publication No. 01-3305. 2. An International Atherosclerosis Society position paper: global recommendations for the management of dyslipidemia: executive summary, Atherosclerosis. 2014: 232(2):410-413. Performed By: #### 5 5454-3 #### [facility] CLIA [id number] [address] [place] [address] [place] Cholesterol in VLDL [Mass/Vol] 10 mg/dL Normal <30 [facility] Comment on above: Order Comment: Philip b[place] Type: BLOOD SPECIMEN Ordering Facility: [facility] Address: [address] [place] [address] Performed By: #### 5 5454-3 #### [facility] CLIA [id number] [address] [place] [address] [place] Cholesterol non HDL [Mass/Vol] 70 mg/dL Normal <130 [facility] Comment on above: Order Comment: Philip b[place] Type: BLOOD SPECIMEN Ordering Facility: [facility] Address: [address] [place] [address] Result Comment: <130 mg/dL, Optimal 130-159 mg/dL, Near optimal/above optimal 160-189 mg/dL, Borderline high 190-219 mg/dL, High >219 mg/dL, Very high Secondary prevention optimal non HDL Cholesterol levels are recommended to be <100 mg/dL Performed By: #### 5 5454-3 #### [facility] CLIA [id number] [address] [place] [address] [place] Cholesterol.total/Chol esterol in HDL [Mass ratio] 1.97 {ratio} Normal <5.10 [facility] Comment on above: Order Comment: Speci men Type: BLOOD SPECIMEN Ordering Facility: [facility] Address: [address] [place] [address] Performed By: #### 5 5454-3 #### [facility] CLIA [id number] [address] [place] [address] [place] FASTING TIME 12 hrs Normal [facility] Comment on above: Order Comment: Speci men Type: BLOOD SPECIMEN Ordering Facility: [facility] Address: [address] [place] [address] Performed By: #### 5 5454-3 #### [facility] CLIA [id number] [address] [place] [address] [place] Triglyceride [Mass/Vol] 51 mg/dL Normal <150 [facility] Comment on above: Order Comment: Speci men Type: BLOOD SPECIMEN Ordering Facility: [facility] Address: [address] [place] [address] Result Comment: <150 mg/dL, Normal 150-199 mg/dL, Borderline high 200-499 mg/dL, High >499 mg/dL, Very high Performed By: #### 5 5454-3 #### [facility] CLIA [id number] [address] [place] [address] [place] CBC with Diffon 01-13-2024 Abs. Basophil 0.08 k/uL Normal 0.00-0.20 [facility] Comment on above: Performed By: #### F VALERIO TO FERI #### [employer] [address] [place] [address] Supervisor [employer]: Harpal Adair MD Abs.Imm.Granulocyte 0.05 k/uL Normal 0.00-0.30 [facility] Comment on above: Performed By: #### F VALERIO TO FERI #### [employer] [address] [place] [address] Supervisor [employer]: Harpal Adair MD Abs.Neutrophil (Seg) 7.68 k/uL Normal 1.50-8.10 [facility] Comment on above: Performed By: #### F EBC, CDP, FERI #### [address] [address] Supervisor [employer]: Harpal Adair MD Basophils/100 WBC (Bld) 1 % Normal 0-2 [facility] Comment on above: Performed By: #### F EBC, CDP, FERI #### [address] [address] Supervisor [employer]: Harpal Adair MD Eosinophils (Bld) [#/Vol] 0.25 10*3/uL Normal 0.00-0.44 [facility] Comment on above: Performed By: #### F EBC, CDP, FERI #### [address] [address] Supervisor [employer]: Harpal Adair MD Eosinophils/100 WBC (Bld) 2 % Normal 1-4 [facility] Comment on above: Performed By: #### F EBC, CDP, FERI #### [facility] [employer] [address] [place] [address] Supervisor [employer]: Harpal Adair MD Erythrocyte distribution width (RBC) [Ratio] 18.6 % High 11.8-14.4 [facility] Comment on above: Performed By: #### F EBC, CDP, FERI #### [facility] [employer] [address] [place] [address] Supervisor [employer]: Harpal Adair MD Hematocrit (Bld) [Volume fraction] 36.7 % Normal 36.3-47.1 [facility] Comment on above: Performed By: #### F EBC, CDP, FERI #### [facility] [employer] [address] [place] [address] Supervisor [employer]: Harpal Adair MD Hemoglobin (Bld) [Mass/Vol] 11.3 g/dL Low 11.9-15.1 [facility] Comment on above: Performed By: #### F EBC, CDP, FERI #### [place] [address] Supervisor [employer]: Harpal Adair MD Immature granulocytes/100 WBC (Bld) 0 % Normal 0 [facility] Comment on above: Performed By: #### F EBC, CDP, FERI #### [place] [address] Supervisor [employer]: Harpal Adair MD Lymphocytes (Bld) [#/Vol] 2.30 10*3/uL Normal 1.10-3.70 [facility] Comment on above: Performed By: #### F EBC, CDP, FERI #### [place] [address] Supervisor [employer]: Harpal Adair MD Lymphocytes/100 WBC (Bld) 21 % Low 24-43 [facility] Comment on above: Performed By: #### F EBC, CDP, FERI #### [place] [address] Supervisor [employer]: Harpal Adair MD MCH (RBC) [Entitic mass] 28.4 pg Normal 25.2-33.5 [facility] Comment on above: Performed By: #### F EBC, CDP, FERI #### [facility] [employer] [address] [place] [address] Supervisor [employer]: Harpal Adair MD MCHC (RBC) [Mass/Vol] 30.8 g/dL Normal 28.4-34.[address] [facility] Comment on above: Performed By: #### F EBC, CDP, FERI #### [facility] [employer] [address] [place] [address] Supervisor [employer]: Harpal Adair MD MCV (RBC) [Entitic vol] 92.2 fL Normal 82.6-102.9 [facility] Comment on above: Performed By: #### F EBC, CDP, FERI #### [address] [address] Supervisor [employer]: Harpal Adair MD Monocytes (Bld) [#/Vol] 0.77 10*3/uL Normal 0.10-1.20 [facility] Comment on above: Performed By: #### F EBC, CDP, FERI #### [address] [address] Supervisor [employer]: Harpal Adair MD Monocytes/100 WBC (Bld) 7 % Normal 3-12 [facility] Comment on above: Performed By: #### F EBC, CDP, FERI #### [address] [address] Supervisor [employer]: Harpal Adair MD Neutrophil (Seg) 69 % High 36-65 [facility] Comment on above: Performed By: #### F EBC, CDP, FERI #### [address] [address] Supervisor [employer]: Harpal Adair MD NRBC Automated 0.0 per 100 WBC Normal 0.0 [facility] Comment on above: Performed By: #### F EBC, CDP, FERI #### [place] [address] Supervisor [employer]: Harpal Adair MD Platelet mean volume (Bld) [Entitic vol] 11.4 fL Normal 8.1-13.5 [facility] Comment on above: Performed By: #### F EBC, CDP, FERI #### [address] [address] Supervisor [employer]: Harpal Adair MD Platelets (Bld) [#/Vol] 387 10*3/uL Normal 138-453 [facility] Comment on above: Performed By: #### F EBC, CDP, FERI #### [facility] [place] [address] Supervisor [employer]: Harpal Adair MD RBC (Bld) [#/Vol] 3.98 10*6/uL Normal 3.95-5.11 [facility] Comment on above: Performed By: #### F EBC, CDP, FERI #### [facility] [address] [place] [address] Supervisor [employer]: Harpal Adair MD RBC morphology finding Nom (Bld) ANISOCYTOSIS PRESENT Normal [facility] Comment on above: Performed By: #### F EBC, CDP, FERI #### [facility] [address] [place] [address] Supervisor [employer]: Harpal Adair MD WBC (Bld) [#/Vol] 11.1 10*3/uL Normal 3.5-11.3 [facility] Comment on above: Performed By: #### F EBC, CDP, FERI #### [facility] [address] [place] [address] Supervisor [employer]: Harpal Adair MD Ferritinon 01-13-2024 Ferritin [Mass/Vol] 9 ng/mL Low 13-150 [facility] Comment on above: Result Comment: FERRITIN Reference Ranges: Adult Males 20 - 60 years: 30 - 400 ng/mL Adult females 17 - 60 years: 13 - 150 ng/mL Adults greater than 60 years: no established reference range Pediatrics: no established reference range Performed By: #### F EBC, CDP, FERI #### [employer] [address] [place] [address] Supervisor [employer]: Harpal Adair MD Iron Binding Cap.on 01-13-20 24 % Fe Saturation 9 % Low 20-55 [facility] Comment on above: Performed By: #### F EBC, CDP, FERI #### [employer] [address] [place] [address] Supervisor [employer]: Harpal Adair MD Iron [Mass/Vol] 37 ug/dL Normal 37-145 [facility] Comment on above: Performed By: #### F EBC, CDP, FERI #### [facility] [address] [place] [address] Supervisor [employer]: Harpal Adair MD Total Fe Binding Cap 390 ug/dL Normal 250-450 [facility] Comment on above: Performed By: #### F EBC, CDP, FERI #### [facility] [address] [place] [address] Supervisor [employer]: Harpal Adair MD Unbound Fe Bind Cap 353 ug/dL High 112-347 [facility] Comment on above: Performed By: #### F EBC, CDP, FERI #### [facility] [address] [place] [address] Supervisor [employer]: MD Ernesto Naylor 01-05-2024 [facility] Telephone ([facility]) SHAZIA CHOU ([id number]) 1990 F Date Time Provider Department 01/05/24 ELIA BAIRES [facility] During your visit today, we recorded the [...] 60 mg by mouth once daily. - kxzzaoaezasn-fvc-czge-F A-vit K (BARIATRIC MULTIVITAMINS) 45 mg iron- [...] Status:Closed by ELIA BAIRES on 01/05/24 Normal [facility] TOXICOLOGY SCRN W/CONF,URINE on 01-05-2024 Amphetamines Confirm (U) [Mass/Vol] Negative Negative [facility] Comment on above: Cutoff threshold at 1000 ng/mL. Barbiturates Urine Negative Negative [facility] Comment on above: Cutoff threshold at 200 ng/mL. Benzodiazepines Urine Negative Negative [facility] Comment on above: Cutoff threshold at 200 ng/mL. Cannabinoids Screen Ql (U) Sent for confirmation Abnormal Negative [facility] Comment on above: Cutoff threshold at 50 ng/mL. Cocaine Ql (U) Negative Negative [facility] Comment on above: Cutoff threshold at 300 ng/mL. Ethanol (U) [Mass/Vol] mg/dL NINF - 11 mg/dL [facility] Interpretation and review of laboratory results Abnormal [facility] Opiates Screen Ql (U) Negative Negative [facility] Comment on above: Cutoff threshold at 300 ng/mL. oxyCODONE cutoff Screen (U) [Mass/Vol] Negative Negative [facility] Comment on above: Cutoff threshold at 100 ng/mL. Phencyclidine Ql (U) Negative Negative [facility] Comment on above: Cutoff threshold at 25 ng/mL. Immunoassay screen only. Cross reactivity with other substances can occur with immunoassay screening. Detection of any drug(s) in this urine toxicology panel is presumptive only. These tests are for medical purposes only and should not be used for compliance monitoring, legal, or forensic use. [facility] CANNABINOID CONF, URon 01-03 Cannabinoids Confirm (U) [Mass/Vol] 153 ng/mL High <16 [facility] Comment on above: Order Comment: Speci men Type: URINE SPECIMENOrdering Facility: [facility] Address: [address] [place] [address] Result Comment: Tetr ahydrocannabinol carboxylic acid (THCA) is a metabolite of kqlfe-0-jeldgurlokmlpoftwloy which is the main active component of marijuana. Presence of THCA indicates use of marijuana. Performed By: #### C ANNCONFU ####[facility] LABCLIA [id number] [address] [place] NOTE ([facility]) Normal [facility] Comment on above: Order Comment: Speci men Type: URINE SPECIMENOrdering Facility: [facility] Address: [address] [place] [address] Result Comment: This test is for medical use only. This test was developed and its performance characteristics determined by [facility]'s Rahul Schaefer [facility] [place] ([facility]). It has not been cleared or approved by the FDA. [facility] is regulated under CLIA as qualified to perform high-complexity testing. This test is used for clinical purposes. It should not be regarded as investigational or for research. Performed By: #### [facility] ####[facility] LABCLIA [id number] [place] [employer] [address] [place] CNOVon 01-04-2024 CNOV Office Visit ([facility]) SHAZIA CHOU ([id number]) 1990 F Date Time Provider Department 01/04/24 9:20 AM ELIA BAIRES [facility] During your visit today, we recorded the [...] She says that she is originally from [facility] however came up to here today [...] to establish with a new psychiatrist at [facility] in [place]. She also sees a counselor weekly. Current [...] in 1 (more content not included)... Normal [facility] SPECIMEN VALIDITY, URINEon 0 01-04-2024 CHROMATE,URINE <10 Normal <50 [facility] Comment on above: Order Comment: Speci men Type: URINE SPECIMENOrdering Facility: [facility] Address: [address], [place] [address] Performed By: #### L [id number] ####[facility] LABCLIA [id number] [place] [address] [place] CREATININE,URINE 33.7 mg/dL Normal 20.0-300.0 [facility] Comment on above: Order Comment: Speci men Type: URINE SPECIMENOrdering Facility: [facility] Address: [address] [place] [address] Performed By: #### L [id number] ####[facility] LABCLIA [id number] [place] [address] [place] NITRITES,URINE <50 Normal <500 [facility] Comment on above: Order Comment: Speci men Type: URINE SPECIMENOrdering Facility: [facility] Address: [address] [place] [address] Performed By: #### L [id number] ####[facility] LABCLIA [id number] [place] [address] [place] OXIDANTS,URINE 70 mg/L Normal <200 [facility] Comment on above: Order Comment: Speci men Type: URINE SPECIMENOrdering Facility: [facility] Address: [address] [place] [address] Performed By: #### L [id number] ####[facility] LABCLIA [id number] [place] [address] [place] pH (U) 5.6 [pH] Normal 4.5-8.0 [facility] Comment on above: Order Comment: Speci men Type: URINE SPECIMENOrdering Facility: [facility] Address: [address] [place] [address] Performed By: #### L [id number] ####[facility]CLIA [id number] [place] [address] [place] SPEC GRAVITY,UR 1.019 Normal 1.003-1.035 [facility] Comment on above: Order Comment: Speci men Type: URINE SPECIMENOrdering Facility: [facility] Address: [address] [place] [address] Performed By: #### L [id number] ####[facility]CLIA [id number] [place] [address] [place] SPECIMEN VALIDITY QUALITY Specimen quality results within acceptable limits Normal [facility] Comment on above: Order Comment: Speci men Type: URINE SPECIMENOrdering Facility: [facility] Address: [address] [place] [address] Performed By: #### L [id number] ####[facility]CLIA [id number] [place] [address] [place] TOXICOLOGY SCRN W/CONF,URINE on 01-04-2024 Amphetamines Confirm (U) [Mass/Vol] Negative Normal Negative [facility] Comment on above: Order Comment: Speci men Type: URINE SPECIMENOrdering Facility: [facility] Address: [address] [place] [address] Result Comment: Cuto ff threshold at 1000 ng/mL. Performed By: #### U TOXRF ####[facility] LABIA [id number] [place] [address] [place] BARBITURATES, URINE Negative Normal Negative [facility] Comment on above: Order Comment: Speci men Type: URINE SPECIMENOrdering Facility: [facility] Address: [address] [place] [address] Result Comment: Cuto ff threshold at 200 ng/mL. Performed By: #### U TOXRF ####[facility] LABIA [id number] [place] [address] [place] BENZODIAZEPINES, UR Negative Normal Negative [facility] Comment on above: Order Comment: Speci men Type: URINE SPECIMENOrdering Facility: [facility] Address: [address] [place] [address] Result Comment: Cuto ff threshold at 200 ng/mL. Performed By: #### U TOXRF ####[facility] LABCLIA [id number] [place] [address] [place] Cannabinoids Screen Ql (U) Sent for confirmation Abnormal Negative [facility] Comment on above: Order Comment: Speci men Type: URINE SPECIMENOrdering Facility: [facility] Address: [address] [place] [address] Result Comment: Cuto ff threshold at 50 ng/mL. Performed By: #### U TOXRF ####[facility] LABCLIA [id number] [place] [address] [place] Cocaine Ql (U) Negative Normal Negative [facility] Comment on above: Order Comment: Speci men Type: URINE SPECIMENOrdering Facility: [facility] Address: [address] [place] [address] Result Comment: Cuto ff threshold at 300 ng/mL. Performed By: #### U TOXRF ####[facility] LABCLIA [id number] [place] [address] [place] Ethanol (U) [Mass/Vol] <11 Normal <11 [facility] Comment on above: Order Comment: Speci men Type: URINE SPECIMENOrdering Facility: [facility] Address: [address] [place] [address] Performed By: #### U TOXRF ####[facility] LABCLIA [id number] [place] [address] [place] Opiates Screen Ql (U) Negative Normal Negative [facility] Comment on above: Order Comment: Speci men Type: URINE SPECIMENOrdering Facility: [facility] Address: [address] [place] [address] Result Comment: Cuto ff threshold at 300 ng/mL. Performed By: #### U TOXRF ####[facility] LABCLIA [id number] [place] [address] [place] oxyCODONE cutoff Screen (U) [Mass/Vol] Negative Normal Negative [facility] Comment on above: Order Comment: Speci men Type: URINE SPECIMENOrdering Facility: [facility] Address: [address] [place] [address] Result Comment: Cuto ff threshold at 100 ng/mL. Performed By: #### U TOXRF ####[facility] [id number] [place] [address] [place] Phencyclidine Ql (U) Negative Normal Negative [facility] Comment on above: Order Comment: Speci men Type: URINE SPECIMENOrdering Facility: [facility] Address: [address] [place] [address] Result Comment: Cuto ff threshold at 25 ng/mL. Performed By: #### U TOXRF ####[facility] LABIA [id number] [place] [address] [place] ED Noteon 2023 ED Note [id number]#1.00T IFF Normal [facility] Activated partial thrombopla stin time (aPTT) in platelet poor plasma by coagulation aOrdered By: Marii Christiansen on 12-10-2023 aPTT Coag (PPP) [Time] 28.8 s 25.1-36.5 [facility] Comment on above: A hematocrit value g reater than 55% may lead to inaccurate results in coagulation testing. Patients having hematocrit values >55% require a special collection tube for coagulation studies. Please contact the laboratory at [phone] for redraw instructions. Basophils Auto (Bld) [#/Vol] Ordered By: Marii Christiansen on 12-10-2023 Basophils (Bld) [#/Vol] 0.1 10*3/uL 0.0-0.2 [facility] Basophils/100 WBC Auto (Bld) Ordered By: Marii Christiansen on 12-10-2023 Basophils/100 WBC (Bld) 1.0 % . [facility] Calcium [Mass/volume] in Ser um or PlasmaOrdered By: Marii Christiansen on 12-10-2023 Calcium [Mass/Vol] 9.3 mg/dL 8.6-10.3 [facility] Carbon dioxide, total [Moles /volume] in Serum or PlasmaOrdered By: Marii Christiansen on 12-10-2023 CO2 [Moles/Vol] 26.2 mmol/L 21.0-31.0 [facility] Chloride [Moles/volume] in S tushar or PlasmaOrdered By: Marii Christiansen on 12-10-2023 Chloride [Moles/Vol] 108 mmol/L 98-107 [facility] Choriogonadotropin.beta subu nit [Units/volume] in Serum or PlasmaOrdered By: Marii Christiansen on 12-10-2023 HCG.beta subunit Qn Negative [facility] Creatine kinase [Enzymatic a ctivity/volume] in Serum or PlasmaOrdered By: Marii Christiansen on 12-10-2023 CK [Catalytic activity/Vol] 90 U/L 30-223 [facility] Creatinine [Mass/volume] in Serum or PlasmaOrdered By: Marii Christiansen on 12-10-2023 Creatinine [Mass/Vol] 0.63 mg/dL 0.60-1.20 [facility] Eosinophils Auto (Bld) [#/Vo l]Ordered By: Marii Christiansen on 12-10-2023 Eosinophils (Bld) [#/Vol] 0.1 10*3/uL 0.0-0.45 [facility] Eosinophils/100 WBC Auto (Bl d)Ordered By: Marii Christiansen on 12-10-2023 Eosinophils/100 WBC (Bld) 1.7 % . [facility] Erythrocyte distribution wid th Auto (RBC) [Ratio]Ordered By: Marii Christiansen on 12-10-2023 Erythrocyte distribution width (RBC) [Ratio] 18.2 % 11.9-15.3 [facility] Glucose [Mass/volume] in Ser um or PlasmaOrdered By: Marii Christiansen on 12-10-2023 Glucose [Mass/Vol] 84 mg/dL 70-100 [facility] Comment on above: ADA recommended refe rence rangeRandom Glucose Reference Range is dependent on time and content of last meal. Glucose of more than 200 mg/dL in a nonstressed, ambulatory subject supports the diagnosis of Diabetes Mellitus. Hematocrit Auto (Bld) [Volum e fraction]Ordered By: Marii Christiansen on 12-10-2023 Hematocrit (Bld) [Volume fraction] 34.4 % 34.0-46.4 [facility] Hemoglobin [Mass/volume] in BloodOrdered By: Marii Christiansen on 12-10-2023 Hemoglobin (Bld) [Mass/Vol] 11.2 g/dL 11.8-15.4 [facility] INR in Platelet poor plasma by Coagulation assayOrdered By: Marii Christiansen on 12-10-2023 INR Coag (PPP) [Relative time] 1.0 {INR} [facility] Comment on above: INR Therapeutic Rang [...] RBC Auto (Bld) [#/Vol] 7.1 10*3/uL 3.8-11.6 [facility] Lymphocytes Auto (Bld) [#/Vo l]Ordered By: Marii Christiansen on 12-10-2023 Lymphocytes (Bld) [#/Vol] 1.6 10*3/uL 1.00-4.8 [facility] Lymphocytes/100 WBC Auto (Bl d)Ordered By: Marii Christiansen on 12-10-2023 Lymphocytes/100 WBC (Bld) 21.9 % . [facility] MCH Auto (RBC) [Entitic mass ]Ordered By: Marii Christiansen on 12-10-2023 MCH (RBC) [Entitic mass] 28.8 pg 24.7-34.3 [facility] MCHC Auto (RBC) [Mass/Vol]Or dered By: Marii Christiansen on 12-10-2023 MCHC (RBC) [Mass/Vol] 32.5 g/dL 32.0-35.0 [facility] MCV Auto (RBC) [Entitic vol] Ordered By: Marii Christiansen on 12-10-2023 MCV (RBC) [Entitic vol] 88.7 fL 80-100 [facility] Magnesium [Mass/volume] in S tushar or PlasmaOrdered By: Marii Christiansen on 12-10-2023 Magnesium [Mass/Vol] 1.9 mg/dL 1.9-2.7 [facility] Monocyte distribution width [Entitic volume] in Blood by AutomatedOrdered By: Marii Christiansen on 12-10-2023 Monocyte distribution width Auto (Bld) [Entitic vol] 16.94 % 0.00-20.00 [facility] Monocytes Auto (Bld) [#/Vol] Ordered By: Marii Christiansen on 12-10-2023 Monocytes (Bld) [#/Vol] 0.5 10*3/uL 0.0-0.8 [facility] Monocytes/100 WBC Auto (Bld) Ordered By: Marii Christiansen on 12-10-2023 Monocytes/100 WBC (Bld) 6.4 % . [facility] Natriuretic peptide B [Mass/ Vol]Ordered By: Marii Christiansen on 12-10-2023 Natriuretic peptide B (Bld) [Mass/Vol] 12.0 pg/mL 5-100 [facility] Neutrophils Auto (Bld) [#/Vo l]Ordered By: Marii Christiansen on 12-10-2023 Neutrophils (Bld) [#/Vol] 4.9 10*3/uL 1.8-7.7 [facility] Neutrophils/100 WBC Auto (Bl d)Ordered By: Marii Christiansen on 12-10-2023 Neutrophils/100 WBC (Bld) 69.0 % . [facility] No Panel InformationOrdered By: Marii Christiansen on 12-10-2023 Estimated GFR (CKD-EPI) > 60.0 mL/Min [facility] Creatinine Clearance (Chem 144.76 [facility] Nucleated erythrocytes [Pres ence] in Blood by Automated countOrdered By: Marii Christiansen on 12-10-2023 Nucleated RBC Auto Ql (Bld) 0.1 /100{WBC} 0-0.5 [facility] Phosphate [Mass/volume] in S tushar or PlasmaOrdered By: Marii Christiansen on 12-10-2023 Phosphate [Mass/Vol] 3.7 mg/dL 2.5-4.5 [facility] Platelet mean volume Auto (B ld) [Entitic vol]Ordered By: Marii Christiansen on 12-10-2023 Platelet mean volume (Bld) [Entitic vol] 9.2 fL 6.3-10.7 [facility] Platelets Auto (Bld) [#/Vol] Ordered By: Marii Christiansen on 12-10-2023 Platelets (Bld) [#/Vol] 331 10*3/uL 150-450 [facility] Potassium [Moles/volume] in Serum or PlasmaOrdered By: Marii Christiansen on 12-10-2023 Potassium [Moles/Vol] 4.0 mmol/L 3.5-5.1 [facility] Prothrombin time (PT)Ordered By: Marii Christiansen on 12-10-2023 PT Coag (PPP) [Time] 11.3 s 9.0-12.9 [facility] Comment on above: A hematocrit value g reater than 55% may lead to inaccurate results in coagulation testing. Patients having hematocrit values >55% require a special collection tube for coagulation studies. Please contact the laboratory at [phone] for redraw instructions. RBC Auto (Bld) [#/Vol]Ordere d By: Marii Christiansen on 12-10-2023 RBC (Bld) [#/Vol] 3.88 10*6/uL 3.60-5.00 [facility] Serum or plasma anion gap de terminationOrdered By: Marii Christiansen on 12-10-2023 Anion gap [Moles/Vol] 9.8 mmol/L 6.0-15.0 [facility] Sodium [Moles/volume] in Ser um or PlasmaOrdered By: Marii Christiansen on 12-10-2023 Sodium [Moles/Vol] 140 mmol/L 136-145 [facility] Thyrotropin [Units/volume] i n Serum or PlasmaOrdered By: Marii Christiansen on 12-10-2023 TSH Qn 0.61 m[IU]/L 0.45-5.33 [facility] Thyroxine (T4) free [Mass/vo lume] in Serum or PlasmaOrdered By: Marii Christiansen on 12-10-2023 Free T4 [Mass/Vol] 0.82 ng/dL 0.61-1.12 [facility] Troponin I.cardiac [Mass/vol ume] in Serum or Plasma by Detection limit <= 0.01 ng/Ordered By: Marii Christiansen on 12-10-2023 Troponin I.cardiac DL <= 0.01 ng/mL [Mass/Vol] < 2.3 pg/mL 0.0-15.0 [facility] Urea nitrogen [Mass/volume] in Serum or PlasmaOrdered By: Marii Christiansen on 12-10-2023 Urea nitrogen [Mass/Vol] 14 mg/dL 7 [facility] WBC Auto (Bld) [#/Vol]Ordere d By: Marii Christiansen on 12-10-2023 WBC (Bld) [#/Vol] 7.1 10*3/uL 3.8-11.6 [facility] Consent for Treatmenton 11-13 Consent for Treatment [id number]#1.00T IFF Normal [facility] MA Mamm Diag w/CAD if perf a [...] very important to your health. The current [employer] and National Comprehensive Cancer [...] Category 1-Negative Recommendation: Normal interval follow-up Normal [facility] US Breast Unilateral Lt Comp leteon 12-09-2023 US Breast Unilateral Lt Complete Exam Date/Time: 12/09/2023 10:07 EDT Reason for Exam: [id number] Report PLEASE REFER TO THE MAMMOGRAM REPORT. Ordering Provider: Jennie Durand FINAL REPORT Dictated: 12/09/2023 4:28 pm Mychal Cabezas M.D. Signed (Electronic Signature): 12/09/2023 4:28 pm Signed by: Mychal Cabezas M.D. Transcribed by: MARCO Technologist: RUTH Normal [facility] Physician Orderon 12-08-2023 Physician Order [id number]#[id number] TIFF Normal [facility] CT ABDOMEN PELVIS W IV CONTR Melba [...] DO 10/25/23 Final result Normal [facility] CBC panel Auto (Bld)on 08-31 Erythrocyte distribution width (RBC) [Ratio] 14.7 % Normal 11.5-15.0 [facility] Comment on above: Order Comment: Speci men Type: BLOOD SPECIMEN [facility] Facility: [facility] Address: [address] [place] [address] Performed By: #### 5 8410-2 #### [facility] CLIA [id number] [address] [place] [address] [facility] Hematocrit (Bld) [Volume fraction] 36.9 % Normal 36.0-46.0 [facility] Comment on above: Order Comment: Speci men Type: BLOOD SPECIMEN Ordering Facility: [facility] Address: [address] [place] [address] Performed By: #### 5 8410-2 #### [facility] CLIA [id number] [address] [place] [address] [place] Hemoglobin (Bld) [Mass/Vol] 11.7 g/dL Normal 11.5-15.5 [facility] Comment on above: Order Comment: Speci men Type: BLOOD SPECIMEN Ordering Facility: [facility] Address: [address] [place] [address] Performed By: #### 5 8410-2 #### [facility] CLIA [id number] [address] [place] [address] [place] MCH (RBC) [Entitic mass] 29.8 pg Normal 26.0-34.0 [facility] Comment on above: Order Comment: Speci men Type: BLOOD SPECIMEN Ordering Facility: [facility] Address: [address] [place] [address] Performed By: #### 5 8410-2 #### [facility] CLIA [id number] [address] [place] [address] [place] MCHC (RBC) [Mass/Vol] 31.7 g/dL Normal 30.5-36.0 [facility] Comment on above: Order Comment: Speci men Type: BLOOD SPECIMEN Ordering Facility: [facility] Address: [address] [place] [address] Performed By: #### 5 8410-2 #### [facility] CLIA [id number] [address] [place] [address] [place] MCV (RBC) [Entitic vol] 93.9 fL Normal 80.0-100.0 [facility] Comment on above: Order Comment: Speci men Type: BLOOD SPECIMEN Ordering Facility: [facility] Address: [address] [place] [address] Performed By: #### 5 8410-2 #### [facility] CLIA [id number] [place] [address] [place] Nucleated RBC (Bld) [#/Vol] 10*3/uL Normal <0.01 [facility] Comment on above: Order Comment: Speci men Type: BLOOD SPECIMEN Ordering Facility: [facility] Address: [address] [place] [address] Performed By: #### 5 8410-2 #### [facility] CLIA [id number] [address] [place] [address] [place] Platelet mean volume (Bld) [Entitic vol] 11.1 fL Normal 9.0-12.7 [facility] Comment on above: Order Comment: Speci men Type: BLOOD SPECIMEN Ordering Facility: [facility] Address: [address] [place] [address] Performed By: #### 5 8410-2 #### [facility] CLIA [id number] [address] [place] [address] [place] Platelets (Bld) [#/Vol] 297 10*3/uL Normal 150-400 [facility] Comment on above: Order Comment: Speci men Type: BLOOD SPECIMEN Ordering Facility: [facility] Address: [address] [place] [address] Performed By: #### 5 8410-2 #### [facility] CLIA [id number] [address] [place] [address] [place] RBC (Bld) [#/Vol] 3.93 10*6/uL Normal 3.90-5.20 [facility] Comment on above: Order Comment: Speci men Type: BLOOD SPECIMEN Ordering Facility: [facility] Address: [address] [place] [address] Performed By: #### 5 8410-2 #### [facility] CLIA [id number] [address] [place] [address] [place] WBC (Bld) [#/Vol] 6.82 10*3/uL Normal 3.70-11.00 [facility] Comment on above: Order Comment: Speci men Type: BLOOD SPECIMEN Ordering Facility: [facility] Address: [address] [place] [address] Performed By: #### 5 8410-2 #### [facility] CLIA [id number] [place] [address] [place] Comprehensive metabolic 2000 panelon 08-31-2023 Albumin [Mass/Vol] 4.4 g/dL Normal 3.9-4.9 [facility] Comment on above: Order Comment: Speci men Type: BLOOD SPECIMEN Ordering Facility: [facility] Address: [address] [place] [address] Performed By: #### L IPNF, #### [facility] CLIA [id number] [address] [place] [address] [place] ALP [Catalytic activity/Vol] 75 U/L Normal 34-123 [facility] Comment on above: Order Comment: Speci men Type: BLOOD SPECIMEN Ordering Facility: [facility] Address: [address] [place] [address] Performed By: #### L IPNF, #### [facility] CLIA [id number] [address] [place] [address] [place] ALT [Catalytic activity/Vol] 16 U/L Normal 7-38 [facility] Comment on above: Order Comment: Speci men Type: BLOOD SPECIMEN Ordering Facility: [facility] Address: [address] [place] [address] Performed By: #### L IPNF, #### [facility] CLIA [id number] [address] [place] [address] [place] Anion gap [Moles/Vol] 11 mmol/L Normal 9-18 [facility] Comment on above: Order Comment: Speci men Type: BLOOD SPECIMEN Ordering Facility: [facility] Address: [address] [place] [address] Performed By: #### L IPNF, #### [facility] CLIA [id number] [address] [place] [address] [place] AST [Catalytic activity/Vol] 21 U/L Normal 13-35 [facility] Comment on above: Order Comment: Speci men Type: BLOOD SPECIMEN Ordering Facility: [facility] Address: [address] [place] [address] Performed By: #### L IPNF, #### [facility] CLIA [id number] [address] [place] [address] [place] Bilirubin [Mass/Vol] 0.2 mg/dL Normal 0.2-1.3 [facility] Comment on above: Order Comment: Speci men Type: BLOOD SPECIMEN Ordering Facility: [facility] Address: [address] [place] [address] Performed By: #### L IPNF, #### [facility] CLIA [id number] [address] [place] [address] [place] Calcium [Mass/Vol] 9.7 mg/dL Normal 8.5-10.2 [facility] Comment on above: Order Comment: Speci men Type: BLOOD SPECIMEN Ordering Facility: [facility] Address: [address] [place] [address] Performed By: #### L IPNF, #### [facility] CLIA [id number] [address] [place] [address] [place] Chloride [Moles/Vol] 106 mmol/L High 97-105 [facility] Comment on above: Order Comment: Speci men Type: BLOOD SPECIMEN Ordering Facility: [facility] Address: [address] [place] [address] Performed By: #### L IPNF, #### [facility] CLIA [id number] [address] [place] [address] [place] CO2 [Moles/Vol] 25 mmol/L Normal 22-30 [facility] Comment on above: Order Comment: Speci men Type: BLOOD SPECIMEN Ordering Facility: [facility] Address: [address] [place] [address] Performed By: #### L IPNF, 97697-9 #### [facility] CLIA [id number] [place] [address] [place] Creatinine [Mass/Vol] 0.55 mg/dL Low 0.58-0.96 [facility] Comment on above: Order Comment: Philip birmingham Type: BLOOD SPECIMEN Ordering Facility: [facility] Address: [address] [place] [address] Performed By: #### L IP, 10887-4 #### [facility] CLIA [id number] [place] [address] [place] Creatinine and Glomerular filtration rate.predicted panel (S/P/Bld) 124 mL/min/1.73m??? Normal >=60 [facility] Comment on above: Order Comment: Philip birmingham Type: BLOOD SPECIMEN Ordering Facility: [facility] Address: [address] [place] [address] Result Comment: Brenda mated Glomerular Filtration Rate [...] reflect actual GFR. Performed By: #### [place], 26110-8 #### [facility] CLIA [id number] [address] [place] [address] [place] Glucose [Mass/Vol] 93 mg/dL Normal 74-99 [facility] Comment on above: Order Comment: Philip birmingham Type: BLOOD SPECIMEN Ordering Facility: [facility] Address: [address] [place] [address] Result Comment: The [place] [employer] (ADA) provides guidance for cutoff [...] Standards of Medical Care in Diabetes 2016, [place] [employer]. Diabetes Care. 2016.39(Suppl 1). Performed By: #### L IPNF, 27635-1 #### [facility] CLIA [id number] [address] [place] [address] [place] Potassium [Moles/Vol] 4.7 mmol/L Normal 3.7-5.1 [facility] Comment on above: Order Comment: Philip birmingham Type: BLOOD SPECIMEN Ordering Facility: [facility] Address: [address] [place] [address] Performed By: #### L IPNF, #### [facility] CLIA [id number] [address] [place] [address] [place] Protein [Mass/Vol] 7.3 g/dL Normal 6.3-8.0 [facility] Comment on above: Order Comment: Philip birmingham Type: BLOOD SPECIMEN Ordering Facility: [facility] Address: [address] [place] [address] Performed By: #### L IPNF, #### [facility] CLIA [id number] [address] [place] [address] [place] Sodium [Moles/Vol] 142 mmol/L Normal 136-144 [facility] Comment on above: Order Comment: Philip birmingham Type: BLOOD SPECIMEN Ordering Facility: [facility] Address: [address] [place] [address] Performed By: #### L IPNF, #### [facility] CLIA [id number] [address] [place] [address] [place] Urea nitrogen [Mass/Vol] 9 mg/dL Normal 7-21 [facility] Comment on above: Order Comment: Philip birmingham Type: BLOOD SPECIMEN Ordering Facility: [facility] Address: [address] [place] [address] Performed By: #### L IPNF, 10756-0 #### [facility] CLIA [id number] [address] [place], [place] [id number] [place] LIPID PANEL, NONFASTINGon Cholesterol [Mass/Vol] 154 mg/dL Normal <200 [facility] Comment on above: Order Comment: Philip birmingham Type: BLOOD SPECIMEN Ordering Facility: [facility] Address: [address] [place] [address] Result Comment: <200 mg/dL, Desirable 200-239 mg/dL, Borderline high >239 mg/dL, High Performed By: #### L IPNF, 50971-7 #### [facility] CLIA [id number] [address] [place] [address] [place] HDL CHOLESTEROL, NF 69 mg/dL Normal >39 [facility] Comment on above: Order Comment: Philip birmingham Type: BLOOD SPECIMEN Ordering Facility: [facility] Address: [address] [place] [address] Result Comment: 40-5 9 mg/dL, Acceptable >59 mg/dL, High: Negative risk factor for coronary heart disease <40 mg/dL, Low: Positive risk factor for coronary heart disease Performed By: #### L IPNF, 11773-0 #### [facility] CLIA [id number] [address] [place] [address] [facility] LDL CHOLESTEROL, NF 66 mg/dL Normal <100 [facility] Comment on above: Order Comment: Philip birmingham Type: BLOOD SPECIMEN Ordering Facility: [facility] Address: [address] [place] [address] Result Comment: <100 mg/dL, Optimal 100-129 mg/dL, Near optimal/above optimal 130-159 mg/dL, Borderline high 160-189 mg/dL, High >189 mg/dL, Very high Secondary prevention optimal LDL Cholesterol levels are recommended to be < 70 mg/dL Performed By: #### L IPNF, 73868-2 #### [facility] CLIA [id number] [address] [place] [address] [place] LDL/HDL RATIO, NF 0.96 mg/dL Normal <2.54 [facility] Comment on above: Order Comment: Philip birmingham Type: BLOOD SPECIMEN Ordering Facility: [facility] Address: [address] [place] [address] Result Comment: Refe rence: 1. National Cholesterol Education Program ATP III Guideline At-A-Glance Quick Desk Reference: National Heart, Lung, and Blood [place]. National Institutes of Health. 2001: NIH Publication No. 01-3305. 2. An International Atherosclerosis Society position paper: global recommendations for the management of dyslipidemia: executive summary, Atherosclerosis. 2014: 232(2):410-413. Performed By: #### L IPNF, 71608-7 #### [facility] CLIA [id number] [address] [place] [address] [place] NON HDL CHOL, NF 85 mg/dL Normal <130 [facility] Comment on above: Order Comment: Philip birmingham Type: BLOOD SPECIMEN Ordering Facility: [facility] Address: [address] [place] [address] Result Comment: <130 mg/dL, Optimal 130-159 mg/dL, Near optimal/above optimal 160-189 mg/dL, Borderline high 190-219 mg/dL, High >219 mg/dL, Very high Secondary prevention optimal non HDL Cholesterol levels are recommended to be <100 mg/dL Performed By: #### L IPNF, 62413-0 #### [facility] CLIA [id number] [address] [place] [address] [place] T CHOL/HDL RATIO NF 2.23 mg/dL Normal <5.10 [facility] Comment on above: Order Comment: Philip birmingham Type: BLOOD SPECIMEN Ordering Facility: [facility] Address: [address] [place] [address] Performed By: #### L IPNF, 77128-4 #### [facility] CLIA [id number] [address] [place] [address] OF [place] TRIGLYCERIDES, NF 96 mg/dL Normal <150 [facility] Comment on above: Order Comment: Philip birmingham Type: BLOOD SPECIMEN Ordering Facility: [facility] Address: [address] [place] [address] Result Comment: <150 mg/dL, Normal 150-199 mg/dL, Borderline high 200-499 mg/dL, High >499 mg/dL, Very high Performed By: #### L IPNF, 44441-2 #### [facility] CLIA [id number] [address] [place] [address] [place] VLDL CHOLESTEROL, NF 19 mg/dL Normal <30 [facility] Comment on above: Order Comment: Speci men Type: BLOOD SPECIMEN Ordering Facility: [facility] Address: [address] [place] [address] Performed By: #### L IPNF, 54567-2 #### [facility] CLIA [id number] [address] [place] [address] [place] PHOSPHATIDYLETHANOL (PETH)on 08-31-2023 EER PETH See Note Normal [facility] Comment on above: Order Comment: Speci men Type: BLOOD SPECIMEN Ordering Facility: [facility] Address: [address] [place] [address] Result Comment: Auth orized individuals can access the One-Song Enhanced Report using the following link: [email or web address] Performed By: #### P ETH #### [facility] CLIA [id number] [address] [place] [address] PETH 16:0/18.2 (PLPETH) 244 ng/mL Normal [facility] Comment on above: Order Comment: Speci men Type: BLOOD SPECIMEN Ordering Facility: [facility] Address: [address] [place] [address] Result Comment: Refe rence ranges are not well established. Performed By: #### P ETH #### [facility] CLIA [id number] [address] [place] [address] PETH 16:0/18:1 (POPETH) 169 ng/mL Normal [facility] Comment on above: Order Comment: Speci men Type: BLOOD SPECIMEN Ordering Facility: [facility] Address: [address] [place] [address] Result Comment: PEth 16:0/18:1 (POPEth) Less than 10 ng/mL............Not detected Less than 20 ng/mL............Abstinence or light alcohol consumption 20 - 200 ng/mL................Moderate alcohol consumption Greater than 200 ng/mL........Heavy alcohol consumption or chronic alcohol use (Reference: Sophie Gonzalez and Crystal Helm 2018 J. Forensic Sci) Performed By: #### P ETH #### [facility] CLIA [id number] [address] [place] [address] PETH INTERPRETATION See Note Normal [facility] Comment on above: Order Comment: Speci men Type: BLOOD SPECIMEN Ordering Facility: [facility] Address: [facility] [place] [address] Result Comment: Phos phatidylethanol (PEth) is a [...] developed and its performance characteristics determined by [facility]. It has not been cleared or approved by the U.S. Food and Drug Administration. This test was performed in a CLIA-certified laboratory and is intended for clinical purposes. Performed By: [facility] [address] [place] [address] Media Reporter: Osmar Salcido MD, PhD CLIA Number: [id number] Performed By: #### P ETH #### [facility] CLIA [id number] [address] [place] [address] MRI ABDOMEN W WO CONTRAST MR CPon [...] MD 08/20/23 Final result Normal [facility] Vitamin [facility] 08-16-2023 Interpretation Normal Normal [facility] Comment on above: Result Comment: (NOT E) This test was developed and its performance characteristics determined by [facility]. It has not been cleared or approved by the US Food and Drug Administration. This test was performed in a CLIA certified laboratory and is intended for clinical purposes. Performed By: [facility] [address] [place] [id number] Media Reporter: Osmar Salcido MD, PhD CLIA Number: [id number] Performed By: #### P THNCA, FEBC, FERI, GLYHGB, VD25 #### [address] [address] Supervisor [employer]: Harpal Adair MD #### AGNES OLIVO, AZN #### [address] [id number] Supervisor [employer]: Patricio Zuñiga MD #### MG ANGEL, CDP #### [address] [place] [address] Supervisor [employer]: Hilton Armenta MD Retinol (Vitamin A) 0.60 mg/L Normal 0.30-1.20 [facility] Comment on above: Performed By: #### P DENNISA, FECHRIS, FERI, GLYHGB, VD25 #### [address] [address] Supervisor [employer]: Harpal Adair MD #### AGNES OLIVO, AZN #### [address] [id number] Supervisor [employer]: Patricio Zuñiga MD #### CP MG, CDP #### [address] [place] [address] Supervisor [employer]: Hilton Armenta MD Retinyl Palmitate <0.02 Normal 0.00-0.10 [facility] Comment on above: Performed By: #### P THNCA, FEBC, FERI, GLYHGB, VD25 #### [address], [place] [id number] Supervisor [employer]: Harpal Adair MD #### TYREE OLIVO1, SENAN #### [facility] [address] [place] [address] Supervisor [employer]: Patricio Zuñiga MD #### CP, MG, CDP #### [facility] [address] [place] [address] Supervisor [employer]: Hilton Armenta MD Alanine aminotransferase [En zymatic activity/volume] in Serum or PlasmaOrdered By: Yoli Norris on 08-15-2023 ALT [Catalytic activity/Vol] 18 U/L 7-52 [facility] Albumin [Mass/volume] in Ser um or Plasma by Bromocresol green (BCG) dye binding methoOrdered By: Yloi Norris on 08-15-2023 Albumin BCG dye [Mass/Vol] 4.6 g/dL 3.5-5.7 [facility] Alkaline phosphatase [Enzyma tic activity/volume] in Serum or PlasmaOrdered By: Yoli Norris on 08-15-2023 ALP [Catalytic activity/Vol] 77 U/L 34-104 [facility] Aspartate aminotransferase [ Enzymatic activity/volume] in Serum or PlasmaOrdered By: Yoli Norris on 08-15-2023 AST [Catalytic activity/Vol] 18 U/L 13-39 [facility] Basophils Auto (Bld) [#/Vol] Ordered By: Yoli Norris on 08-15-2023 Basophils (Bld) [#/Vol] 0.1 10*3/uL 0.0-0.2 [facility] Basophils/100 WBC Auto (Bld) Ordered By: Yoli Norris on 08-15-2023 Basophils/100 WBC (Bld) 0.5 % . [facility] Bilirubin Test strip Ql (U)O rdered By: Yoli Norris on 08-15-2023 Bilirubin Ql (U) Negative Negative [facility] Bilirubin.direct [Mass/volum e] in Serum or PlasmaOrdered By: Yoli Norris on 08-15-2023 Bilirubin.direct [Mass/Vol] 0.00 mg/dL 0.03-0.18 [facility] Comment on above: If the DBIL is less than 0.1, IBIL is not able to becalculated. Bilirubin.total [Mass/volume ] in Serum or PlasmaOrdered By: Yoli Norris on 08-15-2023 Bilirubin [Mass/Vol] 0.3 mg/dL 0.3-1.0 [facility] Calcium [Mass/volume] in Ser um or PlasmaOrdered By: Yoli Norris on 08-15-2023 Calcium [Mass/Vol] 9.8 mg/dL 8.6-10.3 [facility] Carbon dioxide, total [Moles /volume] in Serum or PlasmaOrdered By: Yoli Norris on 08-15-2023 CO2 [Moles/Vol] 21.8 mmol/L 21.0-31.0 [facility] Chloride [Moles/volume] in S tsuhar or PlasmaOrdered By: Yoli Norris on 08-15-2023 Chloride [Moles/Vol] 109 mmol/L 98-107 [facility] Color Auto (U)Ordered By: Maribel Norris on 08-15-2023 Color (U) Yellow Yellow [facility] Creatinine [Mass/volume] in Serum or PlasmaOrdered By: Yoli Norris on 08-15-2023 Creatinine [Mass/Vol] 0.76 mg/dL 0.60-1.20 [facility] Eosinophils Auto (Bld) [#/Vo l]Ordered By: Yoli Norris on 08-15-2023 Eosinophils (Bld) [#/Vol] 0.2 10*3/uL 0.0-0.45 [facility] Eosinophils/100 WBC Auto (Bl d)Ordered By: Yoli Norris on 08-15-2023 Eosinophils/100 WBC (Bld) 2.1 % . [facility] Erythrocyte distribution wid th Auto (RBC) [Ratio]Ordered By: Yoli Norris on 08-15-2023 Erythrocyte distribution width (RBC) [Ratio] 15.1 % 11.9-15.3 [facility] Globulin Calc (S) [Mass/Vol] Ordered By: Yoli Norris on 08-15-2023 Globulin (S) [Mass/Vol] 3.2 g/dL [facility] Glucose [Mass/volume] in Ser um or PlasmaOrdered By: Yoli Norris on 08-15-2023 Glucose [Mass/Vol] 85 mg/dL 70-100 [facility] Comment on above: ADA recommended refe rence rangeRandom Glucose Reference Range is dependent on time and content of last meal. Glucose of more than 200 mg/dL in a nonstressed, ambulatory subject supports the diagnosis of Diabetes Mellitus. HCG ( test) IA.rapi d Ql (U)Ordered By: Yoli Norris on 08-15-2023 HCG ( test) Ql (U) Negative [facility] Hematocrit Auto (Bld) [Volum e fraction]Ordered By: Yoli Norris on 08-15-2023 Hematocrit (Bld) [Volume fraction] 37.2 % 34.0-46.4 [facility] Hemoglobin [Mass/volume] in BloodOrdered By: Yoli Norris on 08-15-2023 Hemoglobin (Bld) [Mass/Vol] 12.2 g/dL 11.8-15.4 [facility] Ketones Auto test strip (U) [Mass/Vol]Ordered By: Yoli Norris on 08-15-2023 Ketones (U) [Mass/Vol] Negative Negative [facility] Leukocytes [#/volume] correc caitlin for nucleated erythrocytes in Blood by Automated counOrdered By: Yoli Norris on 08-15-2023 WBC corrected for nucl RBC Auto (Bld) [#/Vol] 11.3 10*3/uL 3.8-11.6 [facility] Lipase [Enzymatic activity/v olume] in Serum or PlasmaOrdered By: Yoli Norris on 08-15-2023 Lipase [Catalytic activity/Vol] 32.0 U/L 11.0-82.0 [facility] Lymphocytes Auto (Bld) [#/Vo l]Ordered By: Yoli Norris on 08-15-2023 Lymphocytes (Bld) [#/Vol] 2.0 10*3/uL 1.00-4.8 [facility] Lymphocytes/100 WBC Auto (Bl d)Ordered By: Yoli Norris on 08-15-2023 Lymphocytes/100 WBC (Bld) 17.8 % . [facility] MCH Auto (RBC) [Entitic mass ]Ordered By: Yoli Norris on 08-15-2023 MCH (RBC) [Entitic mass] 30.2 pg 24.7-34.3 [facility] MCHC Auto (RBC) [Mass/Vol]Or dered By: Yoli Norris on 08-15-2023 MCHC (RBC) [Mass/Vol] 32.7 g/dL 32.0-35.0 [facility] MCV Auto (RBC) [Entitic vol] Ordered By: Yoli Norris on 08-15-2023 MCV (RBC) [Entitic vol] 92.4 fL 80-100 [facility] Monocyte distribution width [Entitic volume] in Blood by AutomatedOrdered By: Yoli Norris on 08-15-2023 Monocyte distribution width Auto (Bld) [Entitic vol] 15.46 % 0.00-20.00 [facility] Monocytes Auto (Bld) [#/Vol] Ordered By: Yoli Norris on 08-15-2023 Monocytes (Bld) [#/Vol] 0.6 10*3/uL 0.0-0.8 [facility] Monocytes/100 WBC Auto (Bld) Ordered By: Yoli Norris on 08-15-2023 Monocytes/100 WBC (Bld) 5.0 % . [facility] Neutrophils Auto (Bld) [#/Vo l]Ordered By: Yoli Norris on 08-15-2023 Neutrophils (Bld) [#/Vol] 8.4 10*3/uL 1.8-7.7 [facility] Neutrophils/100 WBC Auto (Bl d)Ordered By: Yoli Norris on 08-15-2023 Neutrophils/100 WBC (Bld) 74.6 % . [facility] Nitrite Test strip Ql (U)Ord ered By: Yoli Norris on 08-15-2023 Nitrite Ql (U) Negative Negative [facility] No Panel InformationOrdered By: Yoli Norris on 08-15-2023 Estimated GFR (CKD-EPI) > 60.0 mL/Min [facility] Creatinine Clearance (Chem 117.62 [facility] Nucleated erythrocytes [Pres ence] in Blood by Automated countOrdered By: Yoli Norris on 08-15-2023 Nucleated RBC Auto Ql (Bld) 0.0 /100{WBC} 0-0.5 [facility] Platelet mean volume Auto (B ld) [Entitic vol]Ordered By: Yoli Norris on 08-15-2023 Platelet mean volume (Bld) [Entitic vol] 9.2 fL 6.3-10.7 [facility] Platelets Auto (Bld) [#/Vol] Ordered By: Yoli Norris on 08-15-2023 Platelets (Bld) [#/Vol] 321 10*3/uL 150-450 [facility] Potassium [Moles/volume] in Serum or PlasmaOrdered By: Yoli Norris on 08-15-2023 Potassium [Moles/Vol] 3.5 mmol/L 3.5-5.1 [facility] Protein Auto test strip (U) [Mass/Vol]Ordered By: Yoli Norris on 08-15-2023 Protein (U) [Mass/Vol] Negative Negative [facility] Protein [Mass/volume] in Ser um or PlasmaOrdered By: Yoli Norris on 08-15-2023 Protein [Mass/Vol] 7.8 g/dL 6.4-8.9 [facility] RBC Auto (Bld) [#/Vol]Ordere d By: Yoli Norris on 08-15-2023 RBC (Bld) [#/Vol] 4.03 10*6/uL 3.60-5.00 [facility] Serum or plasma albumin/glob ulin mass ratioOrdered By: Yoli Norris on 08-15-2023 Albumin/Globulin [Mass ratio] 1.4 {ratio} [facility] Serum or plasma anion gap de terminationOrdered By: Yoli Norris on 08-15-2023 Anion gap [Moles/Vol] 12.7 mmol/L 6.0-15.0 [facility] Serum or plasma non-glucuron idated bilirubin measurement (mass/volume)Ordered By: Yoli Norris on 08-15-2023 Bilirubin.indirect [Mass/Vol] 0.3 mg/dL [facility] Sodium [Moles/volume] in Ser um or PlasmaOrdered By: Yoli Norris on 08-15-2023 Sodium [Moles/Vol] 140 mmol/L 136-145 [facility] Specific gravity Auto test s trip (U) [Rel density]Ordered By: Yoli Norris on 08-15-2023 Specific gravity (U) [Rel density] 1.007 1.001-1.030 [facility] Urea nitrogen [Mass/volume] in Serum or PlasmaOrdered By: Yoli Norris on 08-15-2023 Urea nitrogen [Mass/Vol] 11 mg/dL 7-25 [facility] Urine clarity by refractomet ry automatedOrdered By: Yoli Norris on 08-15-2023 Clarity Refractometry automated (U) Clear Clear [facility] Urine glucose measurement by automated test strip (mass/volume)Ordered By: Yoli Norris on 08-15-2023 Glucose Auto test strip (U) [Mass/Vol] Normal mg/dL Normal [facility] Urine hemoglobin detection b y automated test stripOrdered By: Yoli Norris on 08-15-2023 Hemoglobin Auto test strip Ql (U) Negative Negative [facility] Urine leukocyte esterase det ection by automated test stripOrdered By: Yoli Norris on 08-15-2023 Leukocyte esterase Auto test strip Ql (U) Negative Negative [facility] Urobilinogen Auto test strip (U) [Mass/Vol]Ordered By: Yoli Norris on 08-15-2023 Urobilinogen (U) [Mass/Vol] Normal mg/dL Normal [facility] Vitamin B1on 08-15-2023 Vitamin B1 145 nmol/L Normal 70-180 [facility] Comment on above: Result Comment: (NOT [...] developed and its performance characteristics determined by [facility]. It has not been cleared or approved by the US Food and Drug Administration. This test was performed in a CLIA certified laboratory and is intended for clinical purposes. Performed By: [facility] [address] [place] [address] Media Reporter: Osmar Salcido MD, PhD CLIA Number: [id number] Performed By: #### P THNCA, FEBC, FERI, GLYHGB, VD25 #### [place] [id number] Supervisor [employer]: Harpal Adair MD #### PALLAVI, ARIANTB1, AZN #### [facility] [address] [place] [address] Supervisor [employer]: Patricio Zuñiga MD #### CP, MG, CDP #### [facility] [address] [place] [address] Supervisor [employer]: Hilton Armenta MD WBC Auto (Bld) [#/Vol]Ordere d By: Yoli Norris on 08-15-2023 WBC (Bld) [#/Vol] 11.3 10*3/uL 3.8-11.6 [facility] pH Auto test strip (U)Ordere d By: Yoli Norris on 08-15-2023 pH (U) 8.0 [pH] 5.0-9.0 [facility] Zinc, Serumon 08-14-2023 Zinc, Serum 95.3 ug/dL Normal 60.0-120.0 [facility] Comment on above: Result Comment: (NOT [...] developed and its performance characteristics determined by [facility]. It has not been cleared or approved by the US Food and Drug Administration. This test was performed in a CLIA certified laboratory and is intended for clinical purposes. Performed By: [facility] [address] [place] [address] Media Reporter: Osmar Salcido MD, PhD CLIA Number: [id number] Performed By: #### P THNCA, FEBC, FERI, GLYHGB, VD25 #### [facility] [address] [place] [address] Supervisor [employer]: Harpal Adair MD #### ARIAN OLIVOTB1, AZN #### [facility] [address] [place], [place] [phone] Supervisor [employer]: Patricio Zuñiga MD #### CP, MG, CDP #### [facility] [address] [place] [address] [place] [place], [place] [phone] Supervisor [employer]: Hilton Armenta MD B12/Folate Panelon 3 Folic Acid >20.0 Normal >4.8 [facility] Comment on above: Performed By: #### P GINCA, FEBC, FERI, GLYHGB, VD25 #### [address] [phone] Supervisor [employer]: aHrpal Adair MD #### ARIAN OLIVOTB1, AZN #### [facility] [address] [place], [place] [id number] Supervisor [employer]: Patricio Zuñiga MD #### ANGEL, MG, CDP #### [address] [place] [address] Supervisor [employer]: Hilton Armenta MD Cobalamin (Vitamin B12) [Mass/Vol] 632 pg/mL Normal 232-5140 [facility] Comment on above: Performed By: #### P THNCA, FEBC, FERI, GLYHGB, VD25 #### [address] [address] Supervisor [employer]: Harpal Adair MD #### ARIAN OLIVOTB1, AZN #### [facility] [address] [place], [place] [id number] Supervisor [employer]: Patricio Zuñiga MD #### CP, MG, CDP #### [address] [place] [address] Supervisor [employer]: Hilton Armenta MD CBC with Diffon 08-12-2023 Abs. Basophil 0.06 k/uL Normal 0.00-0.20 [facility] Comment on above: Performed By: #### P THNCA, FEBC, FERI, GLYHGB, VD25 #### [address] [address] Supervisor [employer]: Harpal Adair MD #### ARIAN OLIVOTBCeli, AZN #### [facility] [address] [place] [address] Supervisor [employer]: Patricio Zuñiga MD #### CP, MG, CDP #### [address] [place] [address] Supervisor [employer]: Hilton Armenta MD Abs.Imm.Granulocyte 0.03 k/uL Normal 0.00-0.30 [facility] Comment on above: Performed By: #### P DENNISA, ALFONSO, FERI, GLYHGB, VD25 #### [address] [address] Supervisor [employer]: Harpal Adair MD #### AGNES OLIVO, AZN #### [facility] [address] [phone] Supervisor [employer]: Patricio Zuñiga MD #### ANGEL, MG, CDP #### [address] [place], [place] [phone] Supervisor [employer]: Hilton Armenta MD Abs.Neutrophil (Seg) 6.33 k/uL Normal 1.50-8.10 [facility] Comment on above: Performed By: #### P GINCA, FECHRIS, FERI, GLYHGB, VD25 #### [address] [address] Supervisor [employer]: Harpal Adair MD #### AGNES OLIVO, AZN #### [facility] [address] [place], [place] [phone] Supervisor [employer]: Patricio Zuñiga MD #### CP, MG, CDP #### [facility] [address] [place] [address] [place], [place] [phone] Supervisor [employer]: Hilton Armenta MD Basophils/100 WBC (Bld) 1 % Normal 0-2 [facility] Comment on above: Performed By: #### P THNCA, FEBC, FERI, GLYHGB, VD25 #### [facility] [address] [place] [address] Supervisor [employer]: Harpal Adair MD #### FARHADSARIANTB1, AZN #### [facility] [address] [place] [address] Supervisor [employer]: Patricio Zuñiga MD #### CP, MG, CDP #### [address] [place] [phone] Supervisor [employer]: Hilton Armenta MD Eosinophils (Bld) [#/Vol] 0.43 10*3/uL Normal 0.00-0.44 [facility] Comment on above: Performed By: #### P THNCA, FEBC, FERI, GLYHGB, VD25 #### [facility] [address] [place] [address] Supervisor [employer]: Harpal Adair MD #### ARIAN OLIVOTBCeli, AZN #### [facility] [address] [place] [address] Supervisor [employer]: Ptaricio Zuñiga MD #### CP, MG, CDP #### [address] [place], [place] [address] Supervisor [employer]: Hilton Armenta MD Eosinophils/100 WBC (Bld) 5 % High 1-4 [facility] Comment on above: Performed By: #### P THNCA, FEBC, FERI, GLYHGB, VD25 #### [address] [address] Supervisor [employer]: Harpal Adair MD #### ARIAN OLIVOTB1, AZN #### [facility] [address] [place], [place] [id number] Supervisor [employer]: Patricio Zuñiga MD #### CP, MG, CDP #### [address] [place] [address] Supervisor [employer]: Hilton Armenta MD Erythrocyte distribution width (RBC) [Ratio] 14.9 % High 11.8-14.4 [facility] Comment on above: Performed By: #### P DENNISA, FEBC, FERI, GLYHGB, VD25 #### [address] [phone] Supervisor [employer]: Harpal Adair MD #### PALLAVI, ARIANTB1, AZN #### [facility] [address] [place] [address] Supervisor [employer]: Patricio Zuñiga MD #### ANGEL, MG, CDP #### [address] [place] [address] Supervisor [employer]: Hilton Armenta MD Hematocrit (Bld) [Volume fraction] 38.0 % Normal 36.3-47.1 [facility] Comment on above: Performed By: #### P THNCA, FEBC, FERI, GLYHGB, VD25 #### [address] [phone] Supervisor [employer]: Harpal Adair MD #### ARIAN OLIVOTB1, AZN #### [facility] [address] [place], [place] [phone] Supervisor [employer]: Patricio Zuñiga MD #### CP, MG, CDP #### [address] [place] [address] Supervisor [employer]: Hilton Armenta MD Hemoglobin (Bld) [Mass/Vol] 12.2 g/dL Normal 11.9-15.1 [facility] Comment on above: Performed By: #### P THNCA, FEBC, FERI, GLYHGB, VD25 #### [address] [address] Supervisor [employer]: Harpal Adair MD #### PALLAVI, ARIANTB1, AZN #### [facility] [address] [place], [place] [phone] Supervisor [employer]: Patricio Zuñiga MD #### CP, MG, CDP #### [address] [place] [address] Supervisor [employer]: Hilton Armenta MD Immature granulocytes/100 WBC (Bld) 0 % Normal 0 [facility] Comment on above: Performed By: #### P THNCA, FEBC, FERI, GLYHGB, VD25 #### [address] [address] Supervisor [employer]: Harpal Adair MD #### ARIAN OLIVOTB1, AZN #### [facility] [address] [place] [address] [employer]: Patricio Zuñiga MD #### CP, MG, CDP #### [address] [place] [id number] [employer]: Hilton Armenta MD Lymphocytes (Bld) [#/Vol] 1.90 10*3/uL Normal 1.10-3.70 [facility] Comment on above: Performed By: #### P THNCA, FEBC, FERI, GLYHGB, VD25 #### [address] [address] [employer]: Harpal Adair MD #### FARHADSARIANTB1, AZN #### [facility] [address] [place], [place] [id number] [employer]: Patricio Zuñiga MD #### CP, MG, CDP #### [address] [place], [place] [phone] [employer]: Hilton Armenta MD Lymphocytes/100 WBC (Bld) 20 % Low 24-43 [facility] Comment on above: Performed By: #### P THNCA, FEBC, FERI, GLYHGB, VD25 #### [address] [address] [employer]: Harpal Adair MD #### ARIAN OLIVOTBCeli, AZN #### [facility] [address] [place] [address] Supervisor [employer]: Patricio Zuñiga MD #### ANGEL, MG, CDP #### [address] [place] [phone] Supervisor [employer]: Hilton Armenta MD MCH (RBC) [Entitic mass] 29.9 pg Normal 25.2-33.5 [facility] Comment on above: Performed By: #### P THNCA, FEBC, FERI, GLYHGB, VD25 #### [address] [id number] [employer]: Harpal Adair MD #### AGNES OLIVO, AZN #### [facility] [address] [place] [address] Supervisor [employer]: Patricio Zuñiga MD #### CP, MG, CDP #### [address] [place] 8[address]83 Supervisor [employer]: Hilton Armenta MD MCHC (RBC) [Mass/Vol] 32.1 g/dL Normal 28.4-34.8 [facility] Comment on above: Performed By: #### P THNCA, FEBC, FERI, GLYHGB, VD25 #### [address] [phone] [employer]: Harpal Adair MD #### ARIAN OLIVOTB1, AZN #### [facility] [address] [place], [place] [id number] [employer]: Patricio Zuñiga MD #### CP, MG, CDP #### [address] [place] [phone] [employer]: Hilton Armenta MD MCV (RBC) [Entitic vol] 93.1 fL Normal 82.6-102.9 [facility] Comment on above: Performed By: #### P DENNISA, FEBC, FERI, GLYHGB, VD25 #### [address] [phone] [employer]: Harpal Adair MD #### ARIAN OLIVOTB1, AZN #### [facility] [address] [place] [address] Supervisor [employer]: Patricio Zuñiga MD #### ANGEL, MG, CDP #### [address] [place] [phone] Supervisor [employer]: Hilton Armenta MD Monocytes (Bld) [#/Vol] 0.70 10*3/uL Normal 0.10-1.20 [facility] Comment on above: Performed By: #### P THNCA, FEBC, FERI, GLYHGB, VD25 #### [address] [address] [employer]: Harpal Adair MD #### ARIAN OLIVOTB1, AZN #### [facility] [address] [place] [address] Supervisor [employer]: Patricio Zuñiga MD #### CP, MG, CDP #### [address] [place], [place] [phone] [employer]: Hilton Armenta MD Monocytes/100 WBC (Bld) 7 % Normal 3-12 [facility] Comment on above: Performed By: #### P THNCA, FEBC, FERI, GLYHGB, VD25 #### [facility] [address] [place] [address] Supervisor [employer]: Harpal Adair MD #### ARIAN OLIVOTB1, AZN #### [facility] [address] [place] [address] Supervisor [employer]: Patricio Zuñiga MD #### CP, MG, CDP #### [facility] [address] [place], [place] [phone] Supervisor [employer]: Hilton Armenta MD Neutrophil (Seg) 67 % High 36-65 [facility] Comment on above: Performed By: #### P THNCA, FEBC, FERI, GLYHGB, VD25 #### [address] [address] Super[employer]: Harpal Adair MD #### TYREE OLIVO1, AZN #### [facility] [address] [place], [place] [id number] Super[employer]: Patricio Zuñiga MD #### ANGEL, MG, CDP #### [address] [place], [place] [phone] Supervisor [employer]: Hilton Armenta MD NRBC Automated 0.0 per 100 WBC Normal 0.0 [facility] Comment on above: Performed By: #### P THNCA, FEBC, FERI, GLYHGB, VD25 #### [facility] [address] [place] [address] Supervisor [employer]: Harpal Adair MD #### ARIAN OLIVOTB1, AZN #### [facility] [address] [place] [address] Supervisor [employer]: Patricio Zuñiga MD #### CP, MG, CDP #### [facility] [address] [place] [address] [address] [place], [place] [phone] Supervisor [employer]: Hilton Armenta MD Platelet mean volume (Bld) [Entitic vol] 10.6 fL Normal 8.1-13.5 [facility] Comment on above: Performed By: #### P THNCA, FEBC, FERI, GLYHGB, VD25 #### [address] [phone] [employer]: Harpal Adair MD #### AGNES OLIVO, AZN #### [facility] [address] [place] [address] Supervisor [employer]: Patricio Zuñiga MD #### MG ANGEL, CDP #### [address] [place] [address] Supervisor [employer]: Hilton Armenta MD Platelets (Bld) [#/Vol] 355 10*3/uL Normal 138-453 [facility] Comment on above: Performed By: #### P THNCA, FEBC, FERI, GLYHGB, VD25 #### [address] [address] Supervisor [employer]: Harpal Adair MD #### AGNES OLIVO, AZN #### [facility] [address] [place] [address] Supervisor [employer]: Patricio Zuñiga MD #### ANGEL MG, CDP #### [address] [place], [place] [phone] Supervisor [employer]: Hilton Armenta MD RBC (Bld) [#/Vol] 4.08 10*6/uL Normal 3.95-5.11 [facility] Comment on above: Performed By: #### P THNCA, FEBC, FERI, GLYHGB, VD25 #### [address] [id number] [employer]: Harpal Adair MD #### TYREE OLIVO1, AZN #### [facility] [address] [place], [place] [id number] Super[employer]: Patricio Zuñiga MD #### CP, MG, CDP #### [address] [place], [place] 0666183 Supervisor [employer]: Hilton Armenta MD WBC (Bld) [#/Vol] 9.5 10*3/uL Normal 3.5-11.3 [facility] Comment on above: Performed By: #### P DENNISA, FEBC, FERI, GLYHGB, VD25 #### [place] [address] [place] [address] Supervisor [employer]: Harpal Adair MD #### TYREE OLIVO1, AZN #### [facility] [address] [place], [place] [id number] Super[employer]: Patricio Zuñiga MD #### ANGEL, MG, CDP #### [address] [place] [address] Supervisor [employer]: Hilton Armenta MD Comp Metabolic Profon 2022 Albumin [Mass/Vol] 4.5 g/dL Normal 3.5-5.2 [facility] Comment on above: Performed By: #### P DENNISA, FEBC, FERI, GLYHGB, VD25 #### [address] [address] Super[employer]: Harpal Adair MD #### ARIAN OLIVOTB1, AZN #### [facility] [address] [place], [place] [id number] Super[employer]: Patricio Zuñiga MD #### CP, MG, CDP #### [address] [place] [address] Supervisor [employer]: Hilton Armenta MD Albumin/Glob Ratio 1.6 Normal 1.0-2.5 [facility] Comment on above: Performed By: #### P THNCA, FEBC, FERI, GLYHGB, VD25 #### [facility] [place] [address] Supervisor [employer]: Hrapal Adair MD #### ARIAN OLIVOTB1, AZN #### [facility] [address] [place] [address] Supervisor [employer]: Patricio Zuñiga MD #### ANGEL, MG, CDP #### [address] [place], [place] 9727383 Supervisor [employer]: Hilton Armenta MD Alkaline Phos 85 U/L Normal 35-104 [facility] Comment on above: Performed By: #### P THNCA, FEBC, FERI, GLYHGB, VD25 #### [address] [address] Supervisor [employer]: Harpal Adair MD #### AGNES OLIVO, AZN #### [facility] [address] [place], [place] [id number] Supervisor [employer]: Patricio Zuñiga MD #### ANGEL, MG, CDP #### [address] [place], [place] [phone] Supervisor [employer]: Hilton Armenta MD ALT [Catalytic activity/Vol] 21 U/L Normal 5-33 [facility] Comment on above: Performed By: #### P THNCA, FEBC, FERI, GLYHGB, VD25 #### [facility] [address] [place] [address] [employer]: Harpal Adair MD #### ARIAN OLIVOTB1, AZN #### [facility] [address] [place] [address] Supervisor [employer]: Patricio Zuñiga MD #### ANGEL, MG, CDP #### [address] [place], [place] 0941383 Supervisor [employer]: Hilton Armenta MD Anion gap [Moles/Vol] 11 mmol/L Normal 9-17 [facility] Comment on above: Performed By: #### P THNCA, FEBC, FERI, GLYHGB, VD25 #### [address] [phone] [employer]: Harpal Adair MD #### AGNES OLIVO, AZN #### [facility] [address] [place], [place] [phone] [employer]: Patricio Zuñiga MD #### MG ANGEL, CDP #### [address] [place], [place] 3746683 Supervisor [employer]: Hilton Armenta MD AST [Catalytic activity/Vol] 22 U/L Normal <32 [facility] Comment on above: Performed By: #### P THNCA, FEBC, FERI, GLYHGB, VD25 #### [address] [address] Supervisor [employer]: Harpal Adair MD #### AGNES OLIVO, AZN #### [facility] [address] [place], [place] [id number] Supervisor [employer]: Patricio Zuñiga MD #### ANGEL MG, CDP #### [address] [place], [place] 084[address]83 Supervisor [employer]: Hilton Armenta MD Bilirubin [Mass/Vol] 0.2 mg/dL Low 0.3-1.2 [facility] Comment on above: Performed By: #### P THNCA, FEBC, FERI, GLYHGB, VD25 #### [facility] [place] [address] Supervisor [employer]: Harpal Adair MD #### AGNES OLIVO, AZN #### [facility] [address] [place] [address] Supervisor [employer]: Patricio Zuñiga MD #### ANGEL MG, CDP #### [address] [place], [place] 7364283 Supervisor [employer]: Hilton Armenta MD BUN/CRE Ratio 20 Normal 9-20 [facility] Comment on above: Performed By: #### P THNCA, FEBC, FERI, GLYHGB, VD25 #### [address] [phone] Super[employer]: Harpal Adair MD #### AGNES OLIVO, AZN #### [facility] [address] [place], [place] [id number] Supervisor [employer]: Patricio Zuñiga MD #### MG ANGEL, CDP #### [address] [place] [address] Supervisor [employer]: Hilton Armenta MD Calcium [Mass/Vol] 9.9 mg/dL Normal 8.6-10.4 [facility] Comment on above: Performed By: #### P BAILEY, FEBC, FERI, GLYHGB, VD25 #### [address] [address] Supervisor [employer]: Harpal Adair MD #### AGNES OLIVO, AZN #### [facility] [address] [place] [address] Supervisor [employer]: Patricio Zuñiga MD #### ANGEL MG, CDP #### [address] [place] [address] Supervisor [employer]: Hilton Armenta MD Chloride [Moles/Vol] 107 mmol/L Normal 98-107 [facility] Comment on above: Performed By: #### P THHAYDEEA, FEBC, FERI, GLYHGB, VD25 #### [address] [place] [address] Supervisor [employer]: Harpal Adair MD #### AGNES OLIVO, AZN #### [facility] [address] [place], [place] [phone] Supervisor [employer]: Patricio Zuñiga MD #### CP, MG, CDP #### [facility] [address] [place] [address] [place] [address] Supervisor [employer]: Hilton Armenta MD CO2 [Moles/Vol] 23 mmol/L Normal 20-31 [facility] Comment on above: Performed By: #### ALFONSO COSTA, FERI, GLYHGB, VD25 #### [address] [address] Supervisor [employer]: Harpal Adair MD #### AGNES OLIVO, AZN #### [facility] [address] [place], [place] [phone] Supervisor [employer]: Patricio Zuñiga MD #### ANGEL, MG, CDP #### [address] [place] [address] Supervisor [employer]: Hilton Armenta MD Creatinine [Mass/Vol] 0.6 mg/dL Normal 0.5-0.9 [facility] Comment on above: Performed By: #### P ALFONSO AVALOS, FERI, GLYHGB, VD25 #### [address] [address] Supervisor [employer]: Harpal Adair MD #### AGNES OLIVO, AZN #### [facility] [address] [place], [place] [id number] Supervisor [employer]: Patricio Zuñiga MD #### CP, MG, CDP #### [address] [place] [address] Supervisor [employer]: Hilton Armenta MD GFR/1.73 sq M.predicted among non-blacks MDRD (S/P/Bld) [Vol rate/Area] mL/min/{1.73_m2} Normal >60 [facility] Comment on above: Result Comment: These [...] renal tubular secretion. Performed By: #### P DENNISA, FECHRIS, FERI, GLYHGB, VD25 #### [address] [phone] [employer]: Harpal Adair MD #### AGNES OLIVO, AZN #### [facility] [address] [place] [id number] Supervisor [employer]: Patricio Zuñiga MD #### ANGEL MG, CDP #### [facility] [address] [place] [address] [place] [address] Supervisor [employer]: Hilton Armenta MD Glucose [Mass/Vol] 89 mg/dL Normal 70-99 [facility] Comment on above: Performed By: #### P BAILEY, ALFONSO, FERI, GLYHGB, VD25 #### [address] [address] Supervisor [employer]: Harpal Adair MD #### AGNES OLIVO, AZN #### [facility] [address] [place], [place] [phone] Supervisor [employer]: Patricio Zuñiga MD #### ANGEL, MG, CDP #### [facility] [address] [place] [address] Supervisor [employer]: Hilton Armenta MD Potassium [Moles/Vol] 4.3 mmol/L Normal 3.7-5.3 [facility] Comment on above: Performed By: #### P THNCA, FEBC, FERI, GLYHGB, VD25 #### [place] [address] [place] [address] Supervisor [employer]: Harpal Adair MD #### TYREE OLIVO1, AZN #### [facility] [address] [place], [place] [id number] Supervisor [employer]: Patricio Zuñiga MD #### ANGEL, MG, CDP #### [address] [place], [place] 2260283 Supervisor [employer]: Hilton Armenta MD Protein [Mass/Vol] 7.4 g/dL Normal 6.4-8.3 [facility] Comment on above: Performed By: #### P THNCA, FEBC, FERI, GLYHGB, VD25 #### [address] [address] Supervisor [employer]: Harpal Adair MD #### AGNES OLIVO, AZN #### [facility] [address] [place], [place] [id number] Supervisor [employer]: Patricio Zuñiga MD #### ANGEL, MG, CDP #### [address] [place] [address] Supervisor [employer]: Hilton Armenta MD Sodium [Moles/Vol] 141 mmol/L Normal 135-144 [facility] Comment on above: Performed By: #### P THNCA, FEBC, FERI, GLYHGB, VD25 #### [address] [address] Supervisor [employer]: Harpal Adair MD #### AGNES OLIVO, AZN #### [facility] [address] [place] [address] Supervisor [employer]: Patricio Zuñiga MD #### ANGEL, MG, CDP #### [address] [place], [place] 0220483 Supervisor [employer]: Hilton Armenta MD Urea nitrogen [Mass/Vol] 12 mg/dL Normal 6-20 [facility] Comment on above: Performed By: #### P THNCA, FEBC, FERI, GLYHGB, VD25 #### [address] [address] Supervisor [employer]: Harpal Adair MD #### AGNES OLIVO, AZN #### [facility] [address] [place], [place] [id number] Supervisor [employer]: Patricio Zuñiga MD #### MG ANGEL, CDP #### [address] [place] [address] Supervisor [employer]: Hilton Armenta MD Ferritinon 08-12-2023 Ferritin [Mass/Vol] 12 ng/mL Low 13-150 [facility] Comment on above: Performed By: #### P THNCA, FEBC, FERI, GLYHGB, VD25 #### [address] [address] Supervisor [employer]: Harpal Adair MD #### AGNES OLIVO, AZN #### [facility] [address] [place], [place] [id number] Supervisor [employer]: Patricio Zuñiga MD #### ANGEL, MG, CDP #### [facility] [address] [place] [address] [place] [address] Supervisor [employer]: Hilton Armenta MD Hemoglobin A1Con 08-12-2023 Glucose [Mass/Vol] 114 mg/dL Normal [facility] Comment on above: Result Comment: The ADA and AACC recommend providing the estimated average glucose result to permit better patient understanding of their HBA1c result. Performed By: #### P THNCA, FEBC, FERI, GLYHGB, VD25 #### [address] [address] Supervisor [employer]: Harpal Adair MD #### ARIAN OLIVOTB1, AZN #### [facility] [address] [place] [address] Supervisor [employer]: Ptaricio Zuñiga MD #### CP, MG, CDP #### [facility] [address] [place] [address] [place], [place] 5938083 Supervisor [employer]: Hilton Armenta MD HbA1c (Bld) [Mass fraction] 5.6 % Normal 4.0-6.0 [facility] Comment on above: Performed By: #### P THNCA, FEBC, FERI, GLYHGB, VD25 #### [address] [id number] Supervisor [employer]: Harpal Adair MD #### ARIAN OLIVOTB1, AZN #### [facility] [address] [place] [address] Supervisor [employer]: Patricio Zuñiga MD #### ANGEL, MG, CDP #### [address] [place] [address] Supervisor [employer]: Hilton Armenta MD Iron Binding Cap.on 08-12-20 23 % Fe Saturation 16 % Low 20-55 [facility] Comment on above: Performed By: #### P THNCA, FEBC, FERI, GLYHGB, VD25 #### [address] [address] Supervisor [employer]: Harpal Adair MD #### ARIAN OLIVOTB1, AZN #### [facility] [address] [place] [address] Supervisor [employer]: Patricio Zuñiga MD #### CP, MG, CDP #### [facility] [address] [place] [address] Supervisor [employer]: Hilton Armenta MD Iron [Mass/Vol] 57 ug/dL Normal 37-145 [facility] Comment on above: Performed By: #### P THNCA, FEBC, FERI, GLYHGB, VD25 #### [place] [address] [place] [address] Supervisor [employer]: Harpal Adair MD #### ARIAN OLIVOTB1, AZN #### [facility] [address] [place] [address] Supervisor [employer]: Patricio Zuñiga MD #### CP, MG, CDP #### [address] [place] [address] Supervisor [employer]: Hilton Armenta MD Total Fe Binding Cap 354 ug/dL Normal 250-450 [facility] Comment on above: Performed By: #### P THNCA, FEBC, FERI, GLYHGB, VD25 #### [address] [address] Supervisor [employer]: Harpal Adair MD #### TYREE OLIVO1, AZN #### [facility] [address] [place], [place] [id number] Supervisor [employer]: Patricio Zuñiga MD #### ANGEL, MG, CDP #### [address] [place] [address] Supervisor [employer]: Hilton Armenta MD Unbound Fe Bind Cap 297 ug/dL Normal 112-347 [facility] Comment on above: Performed By: #### P THNCA, FEBC, FERI, GLYHGB, VD25 #### [address] [address] Supervisor [employer]: Harpal Adair MD #### ARIAN OLIVOTB1, AZN #### [facility] [address] [place] [address] Supervisor [employer]: Patricio Zuñiga MD #### CP, MG, CDP #### [facility] [address] [place] [address] Supervisor [employer]: Hilton Armenta MD Lipid Profileon 08-12-2023 Cholesterol [Mass/Vol] 153 mg/dL Normal <200 [facility] Comment on above: Result Comment: Cholesterol Guidelines: <200 Desirable 200-240 Borderline >240 Undesirable Performed By: #### L IPR #### [address] [address] Supervisor [employer]: Harpal Adair MD Cholesterol in HDL [Mass/Vol] 68 mg/dL Normal >40 [facility] Comment on above: Result Comment: HDL Guidelines: <40 Undesirable 40-59 Borderline >59 Desirable Performed By: #### L IPR #### [address] [address] Supervisor [employer]: Harpal Adair MD Cholesterol in LDL [Mass/Vol] 77 mg/dL Normal 0-130 [facility] Comment on above: Result Comment: LDL Guidelines: <100 Desirable 100-129 Near to/above Desirable 130-159 Borderline >159 Undesirable Direct (measured) LDL and calculated LDL are not interchangeable tests. Performed By: #### L IPR #### [address] [address] Supervisor [employer]: Harpal Adair MD Cholesterol.total/Chol esterol in HDL [Mass ratio] 2.3 {ratio} Normal <5 [facility] Comment on above: Performed By: #### L IPR #### [address] [address] Supervisor [employer]: Harpal Adair MD Triglyceride [Mass/Vol] 39 mg/dL Normal <150 [facility] Comment on above: Result Comment: Triglyceride Guidelines: <150 Desirable 150-199 Borderline 200-499 High >499 Very high Based on AHA Guidelines for fasting triglyceride, June 2012. Performed By: #### L IPR #### [address] [address] Supervisor [employer]: Harpal Adair MD Magnesiumon 11-29-2023 Magnesium [Mass/Vol] 2.1 mg/dL Normal 1.6-2.6 [facility] Comment on above: Performed By: #### P THNCA, FEBC, FERI, GLYHGB, VD25 #### [facility] [place] [address] Supervisor [employer]: Harpal Adair MD #### AGNES OLIVO, AZN #### [facility] [address] [place], [place] [id number] Supervisor [employer]: Patricio Zuñiga MD #### MG ANGEL, CDP #### [facility] [address] [place] [address] Supervisor [employer]: Hilton Armenta MD PTH, Intacton 08-12-2023 PTH, Intact 17.1 pg/mL Normal 14.0-72.0 [facility] Comment on above: Result Comment: SAMP LES FROM PATIENTS ROUTINELY RECEIVING HIGH DOSE BIOTIN THERAPY MAY SHOW FALSELY DEPRESSED RESULTS. ADDITIONAL INFORMATION MAY BE REQUIRED FOR DIAGNOSIS. Performed By: #### P DENNISA, FECHRIS, FERI, GLYHGB, VD25 #### [address] [address] Supervisor [employer]: Harpal Adair MD #### AGNES OLIVO, AZN #### [address] [id number] Supervisor [employer]: Patricio Zuñiga MD #### ANGEL MG, CDP #### [facility] [address] [place] [address] Supervisor [employer]: Hilton Armenta MD Thyroid Stim. Horm.on 2022 Thyroid Stim. Horm. 1.50 uIU/mL Normal 0.30-5.00 [facility] Comment on above: Performed By: #### P THNCA, FEBC, FERI, GLYHGB, VD25 #### [address] [address] Supervisor [employer]: Harpal Adair MD #### AGNES OLIVO, AZN #### [facility] [address] [place] [address] Supervisor [employer]: Patricio Zuñiga MD #### CP, MG, CDP #### [facility] [address] [place] [address] [place] [address] Supervisor [employer]: Hilton Armenta MD Thyroxine, Freeon 08-12-2023 Thyroxine, Free 1.2 ng/dL Normal 0.9-1.7 [facility] Comment on above: Performed By: #### P THNCA, FEBC, FERI, GLYHGB, VD25 #### [facility] [address] [place], [place] [id number] Supervisor [employer]: Harpal Adair MD #### AGNES OLIVO, AZN #### [facility] [address] [place] [address] Supervisor [employer]: Patricio Zuñiga MD #### ANGEL, MG, CDP #### [facility] [address] [place] [address] [place] [address] Supervisor [employer]: Hilton Armenta MD US GALLBLADDER RUQon 023 US GALLBLADDER RUQ EXAMINATION: RIGHT UPPER QUADRANT ULTRASOUND 08/12/2023 7:25 am COMPARISON: None. HISTORY: ORDERING SYSTEM PROVIDED HISTORY: [employer] pain TECHNOLOGIST PROVIDED HISTORY: This procedure can be scheduled via [employer]. Access your [employer] account by visiting [employer]. FINDINGS: LIVER: The liver demonstrates normal echogenicity [...] Bret Monson DO 08/12/23 Final result Normal [facility] Vitamin D 25 OHon 08-12-2023 Vitamin D 25 OH 45.1 ng/mL Normal >29.9 [facility] Comment on above: Result Comment: Reference Range: Vitamin D status Range Deficiency <20 ng/mL Mild Deficiency 20-30 ng/mL Sufficiency 30-100 ng/mL Toxicity >100 ng/mL Performed By: #### P THNCA, FEBC, FERI, GLYHGB, VD25 #### [facility] [address] [place], [place] [id number] Supervisor [employer]: Harpal Adair MD #### TYREE OLIVO1, AZN #### [facility] [address] [place] [address] Supervisor [employer]: Patricio Zuñiga MD #### CP, MG, CDP #### [facility] [address] [place] [address] Supervisor [employer]: Hilton Armenta MD Patient Correspondenceon Patient Correspondence [id number] IFF Normal [facility] ED Note-Physicianon 07-14-20 ED Note-Physician Basic Information Time Seen: Shama Macdonald PA-C 06/09/2023 15:45 Chief Complaint Pt presents to ED with complaints of MALDONADO onset today. History of Present Illness This patient presents to the emergency department chief complaint of maryam. She states that she has spent $10,000 in the last 2 weeks. She did see her psychiatrist at [facility] today and they are starting [...] of care. (more content not included)... Normal [facility] Comment on above: Result Comment: Elec tronically Signed By: Shama Macdonald PA-C\.benito\Date and Time Signed: 07/14/23 19:57 EDT\.br\Electronically Co-Signed By: Alexis Shukla DO\.br\Date and Time Co-Signed: 07/20/23 07:11 EST COVID Quick Testingon 2022 Result Negative Unblab Other Consultation Noteon 07-08-20 Consultation Note [id number] IFF Normal [facility] Consent for Treatmenton 06-14 Consent for Treatment [id number] IFF Normal [facility] ED Clinical Summaryon 2022 ED Clinical Summary (Inserted Image. Jordana ble to display) [place] [id number] ED Clinical Summary Person Information Name: SHAZIA CHOU [facility] Age: 32 Years : 1990 Sex: Female Language: Cymro PCP: Jennie Durand DO Marital Status: Phone: [phone] MRN: Visit Id: Visit Reason: Headache; Neck [...] 07/02/2023 15:29:14 07/02/2023 15:29:14 07/02/2023 15:29:14 ADDRESS: [address] [place] [id number] PHYS DOC NOTES: MEDICAL INFORMATION: Prescriptions Given: [...] EDUCATION INFORMATION: Instructions: Follow up: DIAGNOSIS: Normal [facility] ED Patient Education Noteon 07-02-2023 ED Patient Education Note Normal [facility] ED Patient Summaryon 023 ED Patient Summary (Inserted Image. Jordana ble to display) [place] [id number] Patient Discharge Instructions Person Information Name: SHAZIA CHOU Age: 32 Years Arrival Date: 07/02/2023 14:03:05 Discharge Diagnosis: Primary Care Physician: Jennie Durand DO Provider Information Primary Provider: Bakari Chester DO Advanced Bus Greaser:Merari Polanco PA-C The exam and treatment you received in the Emergency Department were for an urgent problem and are not intended as complete care. It is important that you follow up with a doctor, nurse practitioner, or physician?s curriculum assistant principal for ongoing care. If your symptoms become [...] opioids can be used to help relieve bmuwcalo-gg-xioatu pain and are often prescribed following a [...] be struggling with addiction, tell your health med care manager and ask for guidance or call [employer]?S National Helpline at 4-456-831-HELP. v Source: [place] Department of Health and Human Services/Center for Disease Control & Prevention [facility] Medications Given: Medication Dose Route No medication (more content not included)... [facility] Consultation Noteon 06-22-20 Consultation Note [id number] FF Normal [facility] Consultation Noteon 06-19-20 Consultation Note [id number] IFF [facility] CNPSandra 06-15-2023 CNPN Telephone (NEADFV) SHAZIA CHOU ([id number]) 1990 F Date Time Provider Department 06/15/23 EILEEN ALVAREZ During your visit today, we recorded the following information about you: Clara Durbin, RN 06/15/2023 4:57 PM Signed Received clinical notes and test results from [facility] ED visit from 06/10/23. 13 pages. Scanned to chart via [employer]. Routed to provider for review Glen Singh [...] is not alleviating the problem. Patient # [id number] Gorge Betancur 07/03/2023 12:15 PM Signed Per instructions from Dr. Alvarez. LM for patient, also sent message via [employer]. She needs to be back on diamox [...] 40 mg by mouth once daily. - hbvrvgbxadtj-juy-gjks-F A-vit K (BARIATRIC MULTIVITAMINS) 45 mg iron- [...] Status:Closed by GORGE BETANCUR on 07/03/23 Normal [facility] Discharge Instructionson Discharge Instructions [id number] CD:127 Normal [facility] Acetamnphn Lvlon 06-09-2023 Acetaminophen [Mass/Vol] ug/mL Low 15-30 [facility] Comment on above: Performed By: #### 2 544967, 0146126, 3496501, 2937131, 7376208, 16136090 ####[address] [address] Auto Diffon 06-09-2023 Basophils/100 WBC (Bld) 0.6 % Normal 0.0-2.0 [facility] Comment on above: Order Comment: Order Added by Discern Expert. Performed By: #### 2 041590, 6630203, 3992738, 4926712, 9577197, 11049637 ####[address] [address] Basophils/Leukocytes Auto (Bld) [Pure # fraction] 0.0 E9/L Normal 0.0-0.2 [facility] Comment on above: Order Comment: Order Added by Discern Expert. Performed By: #### 2 974307, 9480657, 3696437, 7185635, 0471963, 98526205 ####[address] [address] Eosinophils/100 WBC (Bld) 1.9 % Normal 0.0-8.0 [facility] Comment on above: Order Comment: Order Added by Discern Expert. Performed By: #### 2 082109, 6493350, 0680978, 6453555, 8780372, 21568694 ####[address] [address] Eosinophils/Leukocytes Auto (Bld) [Pure # fraction] 0.2 E9/L Normal 0.0-0.5 [facility] Comment on above: Order Comment: Order Added by Discern Expert. Performed By: #### 2 481896, 0364536, 3342865, 6969924, 7020846, 91147964 ####[address] [address] Lymphocytes/100 WBC (Bld) 23.4 % Normal 14.0-50.0 [facility] Comment on above: Order Comment: Order Added by Discern Expert. Performed By: #### 2 475753, 8298995, 3662645, 7401892, 3926752, 01893477 ####[address] [place] [address] Lymphocytes/Leukocytes Auto (Bld) [Pure # fraction] 2.0 E9/L Normal 1.0-4.0 [facility] Comment on above: Order Comment: Order Added by Ilana Expert. Performed By: #### 2 076721, 1782403, 2380973, 6515035, 5086201, 65507262 ####[address] [address] Monocytes/100 WBC (Bld) 6.9 % Normal 4.0-14.0 [facility] Comment on above: Order Comment: Order Added by Discern Expert. Performed By: #### 2 158935, 1341377, 0632568, 8756341, 7688815, 96749176 ####[address] [address] Monocytes/Leukocytes Auto (Bld) [Pure # fraction] 0.6 E9/L Normal 0.2-1.0 [facility] Comment on above: Order Comment: Order Added by Ilana Expert. Performed By: #### 2 013701, 4237973, 0814346, 2589945, 3121434, 16169139 ####[address] [address] Neutrophils/100 WBC (Bld) 67.2 % Normal 36.0-75.0 [facility] Comment on above: Order Comment: Order Added by Ilana Expert. Performed By: #### 2 906323, 7528071, 4184977, 6523005, 0162622, 28101981 ####[address] [address] Neutrophils/Leukocytes Auto (Bld) [Pure # fraction] 5.6 E9/L Normal 2.0-7.5 [facility] Comment on above: Order Comment: Order Added by Ilana Expert. Performed By: #### 2 882920, 7537541, 4985493, 7226092, 2126353, 95881901 ####[address] [address] CBC w/ Auto Diffon 3 Erythrocyte distribution width (RBC) [Ratio] 18.2 % High 10.9-14.2 [facility] Comment on above: Performed By: #### 2 564628, 5630461, 3254233, 9629656, 6578650, 48537950 ####[facility] [address] [place] [address] Hematocrit (Bld) [Volume fraction] 34.3 % Normal 34.0-46.0 [facility] Comment on above: Performed By: #### 2 086272, 6158647, 3693745, 3064300, 6375330, 75641856 ####[place] [address] [place] [address] Hemoglobin (Bld) [Mass/Vol] 11.5 g/dL Low 12.0-16.0 [facility] Comment on above: Performed By: #### 2 867694, 6592935, 1522942, 1715114, 2091516, 33144766 ####[facility] [address] [place] [address] MCH (RBC) [Entitic mass] 30.6 pg Normal 27.0-34.0 [facility] Comment on above: Performed By: #### 2 989015, 1796000, 5321961, 3415272, 5178405, 25116925 ####[address] [address] MCHC (RBC) [Mass/Vol] 33.6 g/dL Normal 31.4-36.0 [facility] Comment on above: Performed By: #### 2 761683, 1134807, 0668187, 5815130, 1078469, 48712959 ####[address] [address] MCV (RBC) [Entitic vol] 91.0 fL Normal 80.0-100.0 [facility] Comment on above: Performed By: #### 2 531667, 2784779, 9336482, 6708359, 3375128, 98531024 ####[facility] [address] [place] [address] Platelet mean volume (Bld) [Entitic vol] 9.8 fL Normal 6.4-10.8 [facility] Comment on above: Performed By: #### 2 558695, 3852114, 9969701, 8377352, 2259700, 52886725 ####[facility] [address] [place] [address] Platelets (Bld) [#/Vol] 283.0 E9/L Normal 150.0-500.0 [facility] Comment on above: Performed By: #### 2 281749, 7265672, 1343626, 1194661, 0789937, 46232355 ####[place] [address] [place] [address] RBC (Bld) [#/Vol] 3.8 E12/L Low 4.3-5.9 [facility] Comment on above: Performed By: #### 2 297491, 5853172, 8265512, 9278743, 9093082, 38353236 ####[place] [address] [place] [address] WBC corrected for nucl RBC Auto (Bld) [#/Vol] 8.4 E9/L Normal 4.0-11.0 [facility] Comment on above: Performed By: #### 2 387773, 5642991, 0877879, 1094888, 9338333, 73343295 ####[facility] [address] [place] [address] CMPon 06-09-2023 Albumin [Mass/Vol] 4.1 g/dL Normal 3.3-5.0 [facility] Comment on above: Performed By: #### 2 778666, 1088749, 7079803, 6257277, 4932718, 89962556 ####[facility] [address] [place] [address] Albumin/Globulin (S) [Mass conc ratio] 1.3 Normal 1.1-2.2 [facility] Comment on above: Performed By: #### 2 059360, 5068466, 6112241, 7517878, 9249064, 14966322 ####[facility] [address] [place] [address] ALP [Catalytic activity/Vol] 58 Int._Unit/L Normal 21-98 [facility] Comment on above: Performed By: #### 2 613550, 3129742, 3819156, 0679892, 2954779, 10936880 ####[facility] [address] [place] [address] ALT No additional P-5'-P [Catalytic activity/Vol] 18 Int._Unit/L Normal 6-46 [facility] Comment on above: Performed By: #### 2 091419, 4817031, 6842030, 2716517, 8387627, 01162390 ####[facility] [address] [place] [address] AST [Catalytic activity/Vol] 20 Int._Unit/L Normal 5-43 [facility] Comment on above: Performed By: #### 2 967349, 1105795, 3639897, 5779358, 1573153, 60869887 ####[facility] [address] [place] [address] Bilirubin [Mass/Vol] 0.1 mg/dL Normal 0.0-1.1 [facility] Comment on above: Performed By: #### 2 217514, 2358514, 6471292, 8119136, 3257536, 65243288 ####[facility] [address] [place] [address] Creatinine [Mass/Vol] 0.6 mg/dL Normal 0.5-1.3 [facility] Comment on above: Performed By: #### 2 811649, 2659634, 2931546, 0856810, 7549458, 77553169 ####[facility] [address] [place] [address] Globulin (S) [Mass/Vol] 3.2 g/dL Normal 1.4-4.0 [facility] Comment on above: Performed By: #### 2 105345, 2059099, 8483556, 2936826, 7431832, 57732663 ####[facility] [address] [place] [address] Protein [Mass/Vol] 7.3 g/dL Normal 6.0-7.8 [facility] Comment on above: Performed By: #### 2 103270, 5902258, 6997856, 4783332, 8470860, 80961094 ####[facility] [address] [place] [address] Urea nitrogen [Mass/Vol] 15 mg/dL Normal 5-21 [facility] Comment on above: Performed By: #### 2 999726, 4782016, 6109566, 5182368, 9196860, 02532908 ####[facility] [address] [place] [address] Urea nitrogen/Creatinine [Mass ratio] 25 No Units High 10-20 [facility] Comment on above: Performed By: #### 2 669999, 6995434, 9636609, 3996859, 6898520, 16619597 ####[facility] [address] [place] [address] Anion gap [Moles/Vol] 13 mmol/L Normal 6-16 [facility] Comment on above: Performed By: #### 2 001393, 5009550, 8984379, 0262721, 5006691, 23452457 ####[facility] [address] [place] [address] Calcium [Mass/Vol] 9.3 mg/dL Normal 8.9-11.1 [facility] Comment on above: Performed By: #### 2 917415, 5528250, 2075828, 0265890, 2866553, 13058952 ####[facility] [address] [place] [address] Chloride [Moles/Vol] 107 mmol/L Normal 101-111 [facility] Comment on above: Performed By: #### 2 705735, 1814819, 5850958, 7878693, 9188585, 59883334 ####[facility] [address] [place] [address] CO2 [Moles/Vol] 23 mmol/L Normal 21-31 [facility] Comment on above: Performed By: #### 2 946998, 4427525, 6881229, 9076227, 9460669, 34563419 ####[facility] [address] [place] [address] Glucose [Mass/Vol] 91 mg/dL Normal 55-199 [facility] Comment on above: Result Comment: If t his glucose result represents a fasting glucose, interpretation should refer to the following reference range: 55-99 mg/dL Performed By: #### 2 618358, 7111725, 2642929, 7227508, 7718429, 81718570 ####[facility] [address] [place] [address] Potassium [Moles/Vol] 3.6 mmol/L Normal 3.5-5.3 [facility] Comment on above: Performed By: #### 2 607120, 2878052, 3191074, 8230509, 1041024, 13779921 ####[facility] [address] [place] [address] Sodium [Moles/Vol] 139 mmol/L Normal 135-145 [facility] Comment on above: Performed By: #### 2 046689, 2315298, 6541454, 0649395, 5823107, 67115539 ####[facility] [address] [place] [address] Consent for Treatmenton 05-16 Consent for Treatment [id number] D:127 Normal [facility] ED Clinical Summaryon 2022 ED Clinical Summary (Inserted Image. Jordana ble to display) [address] [id number] ED Clinical Summary Person Information Name: SHAZIA CHOU [facility] Age: 32 Years : 1990 Sex: Female Language: Cymro PCP: Jennie Durand DO Marital Status: Phone: [phone] MRN: Visit Id: Visit Reason: Headache; HEADACHE [...] 06/09/2023 18:42:22 06/09/2023 18:42:22 06/09/2023 18:42:22 ADDRESS: [address] [place] [id number] [facility] DOC NOTES: MEDICAL INFORMATION: Prescriptions Given: Medications [...] (at bedtime). PATIENT EDUCATION INFORMATION: Instructions: Paresthesia, Krmi-bk-Akhn; Migraine Headache, Hiib-tx-Rcte Follow up: With: Address: When: [place] [phone] In 3 days 06/12/2023 With: Address: When: Jennie Durand [facility] [place] , [address] [address] [facility] (1) In 3 days 06/12/2023 DIAGNOSIS: 1:Headache; 2:Paresthesia of arm Normal [facility] ED Patient Education Noteon 06-09-2023 ED Patient [...] liquor (44 mL). General instructions ? Take neca-ray-npbyxam and prescription medicines only as told by [...] provider. Document Revised: 05/12/2022 Document Reviewed: 05/12/2022 [employer] Patient Education ? 2022 [employer]. Migraine Headache A migraine headache is [...] ? Tiredness. (more content not included)... Normal [facility] ED Patient Summaryon 023 ED Patient Summary (Inserted Image. Jordana ble to display) [place] [id number] Patient Discharge Instructions Person Information Name: SHAZIA CHOU Age: 32 Years Arrival Date: 06/09/2023 15:33:36 Discharge Diagnosis: 1:Headache; 2:Paresthesia of arm Primary Care Physician: Jennie Durand DO Provider Information Primary Provider: Alexis Shukla DO Advanced Bus Greaser:None The exam and treatment you received in the Emergency Department were for an urgent problem and are not intended as complete care. It is important that you follow up with a doctor, nurse practitioner, or physician?s curriculum assistant principal for ongoing care. If your symptoms become worse or you do not improve as expected and you are unable to reach your usual health care provider, you should return to the Emergency Department. We are available 24 hours a day. SHAZIA CHOU has been given the following list of patient education materials, prescriptions and follow-up instructions: Follow-up Instructions: With: Address: When: [facility] In 3 days 06/12/2023 With: Address: When: Jennie Durand [address] [place] [address] [address] [facility] () In 3 days 06/12/2023 In the event that this physician does not participate in your insurance network, please consult with your insurance company to find a nearby participating provider. Patient Education Materials: Paresthesia, Reug-eh-Jndy; Migraine Headache, Gemq-vg-Bgpb A MESSAGE TO ALL PATIENTS REGARDING OPIOIDS PRESCRIPTION OPIOIDS: WHAT YOU NEED TO KNOW Prescription opioids can be used to help relieve fpaydhtr-vi-rfqivj pain and are often prescribed following a [...] addiction, tell (more content not included)... Normal [facility] Ethanolon 06-09-2023 Ethanol [Mass/Vol] mg/dL Normal <=7 [facility] Comment on above: Performed By: #### 2 788608 ####[facility] [address] [place] [address] Salicylateon 06-09-2023 Salicylates [Mass/Vol] mg/dL Low 6-29 [facility] Comment on above: Performed By: #### 2 444036, 5670689, 3226613, 1234816, 3124899, 78061987 ####[facility] [address] [place] [address] U Drug Screenon 06-09-2023 Amphetamines Screen method >1000 ng/mL Ql (U) Negative Normal Negative [facility] Comment on above: Result Comment: Nega tive Cutoff: <1000 ng/mL Performed By: #### 2 430585 ####[facility] [address] [place] [address] Barbiturates Screen Ql (U) Negative Normal Negative [facility] Comment on above: Result Comment: Nega tive Cutoff: <200 ng/mL Performed By: #### 2 478493 ####[facility] [address] [place] [address] Benzodiazepines Ql (U) Negative Normal Negative [facility] Comment on above: Result Comment: Nega tive Cutoff: <200 ng/mL Performed By: #### 2 859586 ####[facility] [address] [place] [address] Cocaine Ql (U) Negative Normal Negative [facility] Comment on above: Result Comment: Nega tive Cutoff: <300 ng/mL Performed By: #### 2 885866 ####[facility] [address] [place] [address] Opiates Screen Ql (U) Negative Normal Negative [facility] Comment on above: Result Comment: Nega tive Cutoff: <300 ng/mL Performed By: #### 2 175646 ####[facility] [address] [place] [address] Phencyclidine Screen method >25 ng/mL Ql (U) Negative Normal Negative [facility] Comment on above: Result Comment: Nega tive Cutoff: <25 ng/mL These drug screen results are to be used for medical (i.e., treatment) purposes only. Unconfirmed drug screening results must not be used for non-medical purposes (e.g., employment testing, legal testing). Performed By: #### 2 428233 ####[facility] [address] [place] [address] Tetrahydrocannabinol Screen method >50 ng/mL Ql (U) Negative Normal Negative [facility] Comment on above: Result Comment: Nega tive Cutoff: <50 ng/mL Performed By: #### 2 066320 ####[facility] [address] [place] [address] UA With Cult Reflexon 2022 Bilirubin Ql (U) Negative Normal Negative [facility] Comment on above: Performed By: #### 1 6433898 #### [facility] [address] [place] [address] Clarity (U) CLEAR Normal Clear [facility] Comment on above: Performed By: #### 1 1428627 #### [facility] [address] [place] [address] Color (U) YELLOW Normal Yellow [facility] Comment on above: Performed By: #### 1 6481868 #### [facility] [address] [place] [address] Crystals LM Ql (Urine sed) Present Normal [facility] Comment on above: Performed By: #### 1 4446738 #### [facility] [address] [place] [address] Epithelial cells.squamous LM.HPF (Urine sed) [#/Area] 0-2 Normal 0-2 [facility] Comment on above: Performed By: #### 1 4248664 #### [facility] [address] [place] [address] Glucose Test strip (U) [Mass/Vol] Negative Normal Negative [facility] Comment on above: Performed By: #### 1 0807431 #### [facility] [address] [place] [address] Hemoglobin Ql (U) Negative Normal Negative [facility] Comment on above: Performed By: #### 1 7392376 #### [facility] [address] [place] [address] Ketones (U) [Mass/Vol] Negative Normal Negative [facility] Comment on above: Performed By: #### 1 7432609 #### [facility] [address] [place] [address] [place].plasma/[place] .RBC (Bld) [Mass ratio] 0-3 Normal 0-3 [facility] Comment on above: Performed By: #### 1 3580515 #### [facility] [address] [place] [address] Nitrite Ql (U) Negative Normal Negative [facility] Comment on above: Performed By: #### 1 4336046 #### [facility] [address] [place] [address] pH (U) 6.0 [pH] Invalid Interpretation Code 5.0-9.0 [facility] Comment on above: Performed By: #### 1 2542789 #### [facility] [address] [place] [address] Protein (U) [Mass/Vol] Negative Normal Negative [facility] Comment on above: Performed By: #### 1 7078524 #### [facility] [address] [place] [address] Specific gravity (U) [Rel density] 1.010 Invalid Interpretation Code 1.005-1.030 [facility] Comment on above: Performed By: #### 1 7906956 #### [facility] [address] [place] [address] Type of Urine collection method Clean Catch Normal [facility] Comment on above: Performed By: #### 1 0986832 #### [facility] [address] [place] [address] Urobilinogen Qn (U) 0.2 {Lucila'U}/dL Normal 0.0-1.0 [facility] Comment on above: Performed By: #### 1 4338078 #### [facility] [address] [place] [address] WBC Auto Ql (U) Negative Normal Negative [facility] Comment on above: Performed By: #### 1 7565353 #### [facility] [address] [place] [address] WBC LM.HPF (Urine sed) [#/Area] 0-5 Normal 0-5 [facility] Comment on above: Performed By: #### 1 2664010 #### [facility] [address] [place] [address] eGFRon 06-09-2023 GFR/1.73 sq M.predicted among non-blacks MDRD (S/P/Bld) [Vol rate/Area] 121 mL/min/1.73 m2 Normal >=59 [facility] Comment on above: Order Comment: Order added by Discern Expert. Result Comment: Child Welfare Assistant gurpreet kidney disease could be indicated at eGFR's of less than 60 mL/min/1.73m2. Kidney failure is indicated at less than 15 mL/min/1.73m2. Performed By: #### 2 745489, 0412221, 3395757, 9192541, 0924126, 72989405 ####[facility] [address] [place] [address] Vit Aon 03-24-2023 Retinol [Mass/Vol] 42.9 microgram/dL Invalid Interpretation Code 18.9-57.3 [facility] Comment on above: Result Comment: Refe rence intervals for vitamin A determined from [facility] internal studies. Individuals with vitamin A less than 20 ug/dL are considered vitamin A deficient and those with serum concentrations less than 10 ug/dL are considered severely deficient. This test was developed and its performance characteristics determined by [facility]. It has not been cleared or approved by the Food and Drug Administration. Performed at: [address] [address] [id number] MD Shorty Rodríguez Performed By: #### 2 966903, 03357980, 2295515, 5754519, 70500459, 45642097, 648029256, 3494162, 9199353, 24080166, 8289879, 3957929, 831170066, 31692787, 2513208, 8080704, 3332367, 3395073 ####[facility] [address] [place] [address] Vit B1on 03-24-2023 Thiamine (Bld) [Moles/Vol] 171.7 nmol/L Invalid Interpretation Code 66.5-200.0 [facility] Comment on above: Result Comment: This test was developed and its performance characteristics determined by [facility]. It has not been cleared or approved by the Food and Drug Administration. Performed at: [address] [id number] MD Shorty Rodríguez Performed By: #### 2 871123, 71982933, 4682231, 5117372, 55873834, 82007034, 076913104, 6040506, 7444060, 59199949, 9561338, 9364764, 421567465, 60949208, 5478839, 3632294, 1567406, 2399753 ####[facility] [address] [place] [address] Zinc Lvlon 03-24-2023 Zinc [Mass/Vol] 85 microgram/dL Invalid Interpretation Code 44-115 [facility] Comment on above: Result Comment: This test was developed and its performance characteristics determined by [facility]. It has not been cleared or approved by the Food and Drug Administration. Detection Limit = 5 Performed at: [address] [id number] MD Shorty Rodríguez Performed By: #### 2 058141, 75504260, 0026772, 5480748, 34944069, 30436731, 352440650, 0007096, 3171332, 36266160, 6302235, 0268740, 193036357, 44014217, 9718363, 2901421, 4062011, 2556172 ####[facility] [address] [place] [address] PTH Intacton 03-20-2023 Parathyrin.intact [Mass/Vol] 17 pg/mL Invalid Interpretation Code 15 [facility] Comment on above: Result Comment: Perf ormed at: [facility] [address] [id number] PhD Cordelia Madera Performed By: #### 1 [id number] ####[facility] [address] [place] [address] Auto Diffon 03-19-2023 Basophils/100 WBC (Bld) 1.1 % Normal 0.0-2.0 [facility] Comment on above: Order Comment: Order Added by Discern Expert. Performed By: #### 2 251555, 64141995, 0722604, 4456534, 91067871, 24276351, 404738606, 0551864, 9549635, 75598788, 6933713, 9425840, 275843626, 29180696, 3891693, 3878342, 6758057, 5055154 ####[facility] [address] [place] [address] Basophils/Leukocytes Auto (Bld) [Pure # fraction] 0.1 E9/L Normal 0.0-0.2 [facility] Comment on above: Order Comment: Order Added by Discern Expert. Performed By: #### 2 962680, 30478067, 0513306, 2335125, 44044561, 96170998, 112517678, 5483817, 8596382, 61206103, 8588126, 6192232, 897820477, 71328752, 3752507, 0476490, 8642698, 3893632 ####[facility] [address] [place] [address] Eosinophils/100 WBC (Bld) 4.1 % Normal 0.0-8.0 [facility] Comment on above: Order Comment: Order Added by Discern Expert. Performed By: #### 2 259524, 88010908, 8230321, 4647399, 01128435, 81147382, 318521243, 5536640, 5299387, 78365267, 2298014, 6779682, 541701855, 13487777, 8817181, 1702623, 2932805, 1176995 ####[facility] [address] [place] [address] Eosinophils/Leukocytes Auto (Bld) [Pure # fraction] 0.4 E9/L Normal 0.0-0.5 [facility] Comment on above: Order Comment: Order Added by Discern Expert. Performed By: #### 2 218760, 62198467, 7708909, 0650500, 50841471, 74916479, 488566810, 9260982, 5019465, 92794940, 8439611, 8202608, 439299697, 36128708, 6306436, 5886439, 6565647, 5402597 ####[address] [place] [address] Lymphocytes/100 WBC (Bld) 20.5 % Normal 14.0-50.0 [facility] Comment on above: Order Comment: Order Added by Discern Expert. Performed By: #### 2 240478, 38906793, 1106916, 3990157, 99150427, 21693091, 948066662, 0623733, 1641177, 39765183, 4987697, 8370423, 755779528, 75341246, 0950991, 2942930, 0919902, 5845695 ####[address] [place] [address] Lymphocytes/Leukocytes Auto (Bld) [Pure # fraction] 2.1 E9/L Normal 1.0-4.0 [facility] Comment on above: Order Comment: Order Added by Discern Expert. Performed By: #### 2 004331, 13604791, 6142378, 0256377, 61689805, 48466708, 798194234, 5675257, 8172312, 80192666, 2283831, 9395931, 130965681, 04161886, 0792335, 6449355, 3136180, 8717179 ####[facility] [address] [place] [address] Monocytes/100 WBC (Bld) 7.6 % Normal 4.0-14.0 [facility] Comment on above: Order Comment: Order Added by Discern Expert. Performed By: #### 2 956885, 15891861, 1293564, 4241778, 65243786, 20357471, 134740058, 4768069, 5219728, 00666903, 8721235, 3867589, 900403613, 31789592, 4275830, 4046385, 7328588, 5545896 ####[address] [place] [address] Monocytes/Leukocytes Auto (Bld) [Pure # fraction] 0.8 E9/L Normal 0.2-1.0 [facility] Comment on above: Order Comment: Order Added by Discern Expert. Performed By: #### 2 327240, 17474074, 3799673, 5000303, 37124329, 36432009, 295640892, 0442502, 9120357, 44210906, 2090032, 3386514, 575813071, 09733958, 6938557, 4132240, 0519632, 7210392 ####[facility] [address] [place] [address] Neutrophils/100 WBC (Bld) 66.7 % Normal 36.0-75.0 [facility] Comment on above: Order Comment: Order Added by Discern Expert. Performed By: #### 2 378943, 77250472, 4533261, 4011300, 84900016, 90553666, 525179763, 3622521, 2871886, 38471596, 2698713, 3287252, 988415378, 62065349, 4798038, 6446976, 4326759, 8276195 ####[facility] [address] [place] [address] Neutrophils/Leukocytes Auto (Bld) [Pure # fraction] 6.8 E9/L Normal 2.0-7.5 [facility] Comment on above: Order Comment: Order Added by Discern Expert. Performed By: #### 2 797810, 97075818, 6822968, 4191138, 02082939, 03296008, 455811100, 6456191, 7286623, 14230696, 1667525, 7563103, 700925239, 57035586, 4727515, 2974593, 7727076, 5352094 ####[facility] [address] [place] [address] CBC w/ Auto Diffon 3 Erythrocyte distribution width (RBC) [Ratio] 16.0 % High 10.9-14.2 [facility] Comment on above: Performed By: #### 2 730855, 81987388, 5383661, 3174404, 52656683, 73903955, 929654000, 3547874, 1098337, 39847967, 4724432, 1273943, 782974924, 90425611, 9709390, 4174886, 8383857, 0040569 ####[facility] [address] [place] [address] Hematocrit (Bld) [Volume fraction] 37.1 % Normal 34.0-46.0 [facility] Comment on above: Performed By: #### 2 618498, 35562677, 9917589, 3513468, 04898776, 15417814, 952667434, 7009206, 4569445, 95411495, 3182559, 0358926, 925534861, 30543373, 5073918, 9048264, 0003817, 6812964 ####[facility] [address] [place] [address] Hemoglobin (Bld) [Mass/Vol] 12.6 g/dL Normal 12.0-16.0 [facility] Comment on above: Performed By: #### 2 219670, 74726858, 4499160, 2862991, 89602015, 82426712, 169939110, 6507924, 4499723, 63120530, 7328506, 4958512, 567637198, 88862483, 8644881, 4368496, 6768719, 8578090 ####[facility] [address] [place] [address] MCH (RBC) [Entitic mass] 31.2 pg Normal 27.0-34.0 [facility] Comment on above: Performed By: #### 2 270849, 35272995, 1828441, 6127488, 63041042, 92650857, 975619965, 1724855, 9031446, 75490744, 9992282, 7434802, 909563828, 40095728, 3910106, 3968776, 3958935, 0080325 ####[facility] [address] [place] [address] MCHC (RBC) [Mass/Vol] 33.9 g/dL Normal 31.4-36.0 [facility] Comment on above: Performed By: #### 2 583264, 42991723, 8508003, 7750780, 25035336, 04444761, 430690871, 4974565, 5447577, 00034237, 8026909, 0696504, 138547722, 13903646, 1511417, 2894413, 3312231, 5325929 ####[address] [place] [address] MCV (RBC) [Entitic vol] 92.0 fL Normal 80.0-100.0 [facility] Comment on above: Performed By: #### 2 229366, 98195701, 8859191, 7609656, 63611435, 78770985, 851265438, 7784263, 7981792, 54279019, 5359006, 4253762, 041800746, 15081440, 3837275, 7821368, 0479365, 2657560 ####[facility] [address] [place] [address] Platelet mean volume (Bld) [Entitic vol] 9.8 fL Normal 6.4-10.8 [facility] Comment on above: Performed By: #### 2 434971, 35427153, 2292619, 9254765, 57344075, 87626203, 311270012, 0281435, 8979680, 81266827, 7654176, 5460162, 288330897, 24330417, 4041308, 2805710, 3554849, 0624140 ####[facility] [address] [place] [address] Platelets (Bld) [#/Vol] 369.0 E9/L Normal 150.0-500.0 [facility] Comment on above: Performed By: #### 2 300233, 61159606, 0701738, 7790153, 53590213, 08251255, 270688955, 5650462, 7143205, 96885269, 5430276, 3185492, 499357100, 13478726, 0684122, 5651564, 2733437, 2393303 ####[facility] [address] [place] [address] RBC (Bld) [#/Vol] 4.0 E12/L Low 4.3-5.9 [facility] Comment on above: Performed By: #### 2 070123, 62237522, 3201261, 5918110, 30196807, 83642393, 627340465, 7473964, 7742147, 50886133, 7109039, 7111086, 106264316, 98903556, 5525565, 4272531, 6540892, 5310312 ####[facility] [address] [place] [address] WBC corrected for nucl RBC Auto (Bld) [#/Vol] 10.1 E9/L Normal 4.0-11.0 [facility] Comment on above: Performed By: #### 2 904506, 02785346, 0525798, 5105095, 59893294, 93755304, 648699221, 3542116, 8293395, 44164241, 5102380, 5822894, 810855998, 62522528, 5151373, 7299176, 9499273, 6103256 ####[facility] [address] [place] [address] CHEMISTRYOrdered By: SYSTEM SYSTEM on 03-19-2023 25-hydroxyvitamin [...] 12 mg/dL Normal 5 - 21 mg/dL [facility] Remisol Urea nitrogen/Creatinine [Mass ratio] 17 mg/mg Normal 10 - 20 [facility] Remisol CHEMISTRYOrdered By: Torres Ulloa on 03-19-2023 HbA1c (Bld) [Mass fraction] 5.8 % Normal <=5.9% [facility] ChemAutoSS CMPon 03-19-2023 Albumin [Mass/Vol] 4.0 g/dL Normal 3.3-5.0 [facility] Comment on above: Performed By: #### 2 173535, 17643386, 5317032, 5801194, 91055734, 35295233, 278778475, 9484079, 3197724, 46351307, 7702610, 3757854, 884629764, 82024159, 1944721, 9516826, 0456562, 8592009 ####[facility] [address] [place] [address] Albumin/Globulin (S) [Mass conc ratio] 1.2 Normal 1.1-2.2 [facility] Comment on above: Performed By: #### 2 077563, 63290745, 5569063, 9146003, 23002239, 48681145, 746686021, 5247470, 8197780, 67730394, 1307237, 2098117, 509841090, 49549144, 0050914, 6558860, 6612987, 9028527 ####[facility] [address] [place] [address] ALP [Catalytic activity/Vol] 61 Int._Unit/L Normal 21-98 [facility] Comment on above: Performed By: #### 2 872275, 03071599, 8046912, 6657126, 91435087, 01521991, 504817893, 0734597, 8191675, 25090763, 4988351, 0184637, 494902213, 17325410, 6074386, 2980259, 6165395, 6476183 ####[facility] [address] [place] [address] ALT No additional P-5'-P [Catalytic activity/Vol] 17 Int._Unit/L Normal 6-46 [facility] Comment on above: Performed By: #### 2 667101, 43437861, 7118270, 0174130, 49338151, 91114909, 745719801, 1149880, 9296494, 94637856, 2803212, 9117390, 377315344, 68788578, 1794054, 3570500, 9801602, 2628080 ####[facility] [address] [place] [address] Anion gap [Moles/Vol] 9 mmol/L Normal 6-16 [facility] Comment on above: Performed By: #### 2 265370, 96270997, 7445690, 4205159, 31189515, 64740438, 563264098, 7338693, 4426826, 93937697, 3544171, 4463778, 621015827, 71544625, 8855842, 3327820, 4174326, 3396090 ####[facility] [address] [place] [address] AST [Catalytic activity/Vol] 20 Int._Unit/L Normal 5-43 [facility] Comment on above: Performed By: #### 2 609075, 37661699, 7197799, 4396988, 95146986, 04782383, 242337965, 2935387, 7680947, 48314015, 8817485, 0390921, 985156197, 18406887, 6289249, 5427712, 7853485, 9951399 ####[facility] [address] [place] [address] Bilirubin [Mass/Vol] 0.4 mg/dL Normal 0.0-1.1 [facility] Comment on above: Performed By: #### 2 739073, 78527239, 5431241, 1969163, 93085997, 42857502, 247856965, 7381824, 2169157, 29309732, 1669016, 7535725, 713485284, 41609537, 3976158, 7037390, 0672275, 9290377 ####[facility] [address] [place] [address] Calcium [Mass/Vol] 9.2 mg/dL Normal 8.9-11.1 [facility] Comment on above: Performed By: #### 2 016228, 01290875, 4307421, 3266067, 84478299, 83817125, 152538563, 2216434, 5495175, 98564356, 8110263, 6965266, 938953838, 56423580, 8763648, 7751471, 4603268, 8596397 ####[facility] [address] [place] [address] Chloride [Moles/Vol] 113 mmol/L High 101-111 [facility] Comment on above: Performed By: #### 2 438244, 70440236, 7078249, 8531912, 12533139, 20450256, 148991968, 9736301, 5923906, 36366519, 9593516, 6935639, 455618838, 42624606, 0795948, 6358607, 1170868, 3971260 ####[facility] [address] [place] [address] CO2 [Moles/Vol] 22 mmol/L Normal 21-31 [facility] Comment on above: Performed By: #### 2 115426, 13218842, 7609912, 8642410, 26019479, 30303865, 445143578, 5290482, 7547814, 27421219, 4148887, 1018931, 387511794, 02917088, 2633902, 7945282, 3010040, 0130832 ####[facility] [address] [place] [address] Creatinine [Mass/Vol] 0.7 mg/dL Normal 0.5-1.3 [facility] Comment on above: Performed By: #### 2 772255, 35523188, 1171933, 8378568, 98571675, 78082454, 315334881, 5296143, 9573082, 94456210, 4689564, 1047731, 920767339, 00346837, 3413155, 8416487, 4620308, 8252125 ####[facility] [address] [place] [address] Globulin (S) [Mass/Vol] 3.2 g/dL Normal 1.4-4.0 [facility] Comment on above: Performed By: #### 2 159326, 92386551, 5232575, 3651023, 41947531, 02652862, 594908822, 4870965, 6156994, 55893145, 6112118, 3067258, 648805048, 75375171, 2277378, 0668800, 0978214, 6571001 ####[facility] [address] [place] [address] Glucose [Mass/Vol] 103 mg/dL Normal 55-199 [facility] Comment on above: Result Comment: If t his glucose result represents a fasting glucose, interpretation should refer to the following reference range: 55-99 mg/dL Performed By: #### 2 746176, 28453934, 6580479, 7988862, 15411255, 12906789, 537756215, 3096065, 8693325, 70404162, 1961894, 9788620, 913188091, 83533254, 4692026, 3064819, 0203619, 8993072 ####[facility] [address] [place] [address] Potassium [Moles/Vol] 3.8 mmol/L Normal 3.5-5.3 [facility] Comment on above: Performed By: #### 2 506985, 39877589, 2407478, 9072192, 96422768, 41700728, 917245529, 9126036, 9953338, 72667721, 2301216, 0514510, 008528184, 26542085, 5088406, 1805929, 3456246, 2366296 ####[facility] [address] [place] [address] Protein [Mass/Vol] 7.2 g/dL Normal 6.0-7.8 [facility] Comment on above: Performed By: #### 2 342712, 76174338, 6267032, 4507212, 79466733, 13569956, 060450699, 8407211, 6180149, 99254828, 3481719, 6019959, 820411859, 14791296, 2052669, 2416976, 6621816, 5314918 ####[facility] [address] [place] [address] Sodium [Moles/Vol] 140 mmol/L Normal 135-145 [facility] Comment on above: Performed By: #### 2 272080, 56509358, 5380767, 4528142, 39429328, 98898687, 149143550, 4558151, 9670518, 02272462, 2935774, 9715758, 643949790, 41153377, 5685922, 1554959, 3092128, 3268870 ####[address] [place] [address] Urea nitrogen [Mass/Vol] 12 mg/dL Normal 5-21 [facility] Comment on above: Performed By: #### 2 501364, 14336914, 6125685, 4598283, 62343409, 97609157, 436668534, 4421461, 4310999, 04035207, 3132940, 2158769, 420571669, 39646432, 6345490, 5389615, 5088535, 0689924 ####[facility] [address] [place] [address] Urea nitrogen/Creatinine [Mass ratio] 17 No Units Normal 10-20 [facility] Comment on above: Performed By: #### 2 512022, 18422722, 4735423, 6124620, 11208463, 02444208, 506732982, 1239436, 8340018, 04449389, 5363387, 6064889, 744462783, 75604503, 1144456, 8083627, 9146329, 2542230 ####[facility] [address] [place] [address] Consent for Treatmenton Consent for Treatment [id number] [id number] D:127 Normal [facility] Ferritinon 03-19-2023 Ferritin [Mass/Vol] 6 ng/mL Low 11-307 [facility] Comment on above: Result Comment: NORM ALS MEN <30 YRS 16-132 ng/mL MEN >30 YRS 8-338 ng/mL WOMEN (PREMEN) 6-104 ng/mL WOMEN (POSTMEN) 12-210 ng/mL Performed By: #### 2 697247, 88143152, 8836848, 5148289, 95410925, 59300918, 121534020, 1496741, 8779677, 12300298, 6435834, 7059112, 076369759, 98477812, 5177976, 6918772, 7495727, 1227641 ####[facility] [address] [place] [address] Folateon 03-19-2023 Folate [Mass/Vol] 15.6 ng/mL Normal >=6.7 [facility] Comment on above: Performed By: #### 2 600068, 11517800, 1310013, 9723314, 77190688, 07909356, 682867445, 9155388, 1244784, 38300391, 8633937, 6824953, 173670627, 51237713, 8753165, 5059180, 0351695, 9798554 ####[facility] [address] [place] [address] Free T4on 03-19-2023 Free T4 [Mass/Vol] 0.88 ng/dL Normal 0.58-1.64 [facility] Comment on above: Performed By: #### 2 300077, 22916942, 4417409, 9253327, 01344802, 73786883, 468090624, 6656821, 1836369, 48924261, 7236483, 1488504, 198446275, 28620944, 4547349, 4260011, 7821374, 5675747 ####[facility] [address] [place] [address] HEMATOLOGYOrdered By: SYSTEM SYSTEM on 03-19-2023 Basophils/100 [...] Normal 4.0 - 11.0 E9/L [facility] HemeAutoSS PpcC5tvf 03-19-2023 HbA1c (Bld) [Mass fraction] 5.8 % Normal <=5.9 [facility] Comment on above: Performed By: #### 2 534140, 71729865, 5927919, 3665312, 25526858, 54730239, 960965929, 4390512, 9442631, 08446932, 4065674, 1738707, 821031760, 12791210, 9800747, 3134688, 5947416, 5578595 ####[facility] [address] [place] [address] Ironon 03-19-2023 Iron [Mass/Vol] 69 microgram/dL Normal 35-153 [facility] Comment on above: Performed By: #### 2 870752, 86161491, 1241806, 4199027, 12404164, 49268636, 771892071, 1408974, 7869706, 18401917, 4778902, 4527798, 774983291, 48182131, 5792266, 3827076, 6462204, 6074053 ####[facility] [address] [place] [address] Lipid Panelon 03-19-2023 Cholesterol [Mass/Vol] 167 mg/dL Normal 120-200 [facility] Comment on above: Performed By: #### 2 184620, 87529609, 0461234, 5859729, 65617854, 26328732, 664978703, 0997449, 9162981, 05243789, 4684412, 1928501, 611565872, 80120268, 5374898, 9809389, 3756434, 4216753 ####[facility] [address] [place] [address] Cholesterol in HDL [Mass/Vol] 72 mg/dL Invalid Interpretation Code [facility] Comment on above: Result Comment: HDL > or equal to 60 mg/dL: Low cardiovascular risk HDL < 40 mg/dL : High cardiovascular risk Performed By: #### 2 512765, 81514463, 2684072, 5173678, 19633433, 69754726, 462775198, 4862202, 0921343, 31924933, 1398568, 5938399, 732139769, 70582846, 1266700, 5995860, 4926496, 2378986 ####[facility] [address] [place] [address] Cholesterol in LDL [Mass/Vol] 72 mg/dL Normal <=129 [facility] Comment on above: Performed By: #### 2 900038, 36799829, 5882270, 3982879, 61987360, 79565870, 607188757, 3545315, 2380787, 02225719, 8680341, 8241039, 135673040, 62923673, 5312640, 1431444, 5460114, 2171602 ####[facility] [address] [place] [address] Cholesterol in VLDL [Mass/Vol] 14 mg/dL Normal 7-40 [facility] Comment on above: Performed By: #### 2 074799, 04687936, 5833581, 5022441, 37139629, 21344760, 236185437, 1191238, 3934399, 21481005, 6875417, 0480172, 744708057, 33419378, 0409915, 3468498, 4429225, 8066564 ####[facility] [address] [place] [address] Triglyceride [Mass/Vol] 69 mg/dL Normal <=149 [facility] Comment on above: Performed By: #### 2 016442, 04741380, 5047705, 7335978, 95538227, 98083994, 079180086, 2254073, 0974406, 62588177, 1293251, 6487391, 692191872, 30840793, 6075792, 7327480, 9865933, 9185900 ####[facility] [address] [place] [address] Magnesiumon 03-19-2023 Magnesium [Mass/Vol] 2.0 mg/dL Normal 1.3-2.4 [facility] Comment on above: Performed By: #### 2 875751, 60155508, 8345805, 8399754, 06937422, 24331311, 304113726, 7437890, 8428158, 07824230, 9026913, 5783398, 197110253, 75646647, 2515082, 9322894, 7938417, 8044277 ####[address] [place] [address] Physician Orderon 03-19-2023 Physician Order [id number] [id number]#[id number] CD:127 Normal [facility] TIBC Calculatedon 03-19-2023 Iron binding capacity [Mass/Vol] 423 microgram/dL High 250-400 [facility] Comment on above: Performed By: #### 2 628037, 95395432, 2224667, 6894756, 47122673, 81340882, 536947651, 9460743, 0853225, 04291526, 1269448, 5449028, 663990456, 63250531, 1468588, 4949065, 8463652, 5940799 ####[facility] [address] [place] [address] Transferrin [Mass/Vol] 302 mg/dL Normal 200-370 [facility] Comment on above: Performed By: #### 2 009028, [id number], 5958513, 7903786, 16468240, 66737272, 098650902, 6271497, 1837497, 36885229, 6334394, 5780949, 993186377, 51019255, 1132347, 2312911, 1300400, 7778959 ####[id number] [place] [address] TSHon 03-19-2023 TSH Qn 0.61 m[IU]/L Normal 0.34-5.60 [facility] Comment on above: Performed By: #### 2 923365, 23897083, 1926404, 1455884, 07856426, 47135053, 833439765, 8060408, 1712032, 69918442, 4128275, 6227740, 710776694, 05585529, 0038580, 3756955, 9778745, 9913753 ####[facility] [id number] [place] [address] Vit B12on 03-19-2023 Cobalamin (Vitamin B12) [Mass/Vol] 357 pg/mL Normal 50-1500 [facility] Comment on above: Performed By: #### 2 383484, 98571727, 7924493, 9216586, 46643433, 31782559, 807817792, 0159518, 7146053, 14320315, 7024895, 0877077, 025057785, 16249262, 7620742, 4779757, 6048027, 0308726 ####[facility] [address] [place] [address] Vitamin D 25 Hydroxyon 03-19 25-hydroxyvitamin D3 [Mass/Vol] 43.1 ng/mL Normal 30.0-100.0 [facility] Comment on above: Result Comment: Vit alberto D deficiency has been defined as a level of serum 25-OH vitamin D less than 20 ng/mL (1,2) by the [employer] [employer] and an Endocrine Society practice guideline. The Endocrine Society further defined vitamin D insufficiency as a level between 21 and 29 ng/mL (2). 1. IOM ([employer]). 2010. Dietary reference intakes for calcium and D. [place]: The National Academies Press. 2. Willard MF, Luisa HUBBARD, Nestor MALDONADO, et al. Evaluation, treatment, and prevention of vitamin D deficiency: an Endocrine Society clinical practice guideline. JCEM. 2010; 96 (7):1911-30. Performed By: #### 2 403538, 29852265, 0271099, 3040097, 72769592, 00628583, 796185417, 5685243, 4893981, 43980353, 2161756, 7150125, 091673711, 97816290, 1782503, 4409902, 7887947, 1103337 ####[facility] [address] [place] [address] eGFRon 03-19-2023 GFR/1.73 sq M.predicted among non-blacks MDRD (S/P/Bld) [Vol rate/Area] 116 mL/min/1.73 m2 Normal >=59 [facility] Comment on above: Order Comment: Order added by Discern Expert. Result Comment: Child Welfare Assistant gurpreet kidney disease could be indicated at eGFR's of less than 60 mL/min/1.73m2. Kidney failure is indicated at less than 15 mL/min/1.73m2. Performed By: #### 2 [id number], [id number], [id number], [id number], [id number], [id number], [id number], [id number], [id number], [id number], [id number], [id number], [id number], [id number], [id number], [id number], [id number], [id number] ####[id number] [place] [address] MRA Head veins WO and W cont rast Ramón 01-29-2023 IMPRESSION: Unremarkable MRV head with and without contrast. Jtac: PSCB Transcribe Date/Time: Jan 29 2023 2:40P Dictated by : JENNIFER RUVALCABA MD This examination was interpreted and the report reviewed and electronically signed by: JENNIFER RUVALCABA MD on Jan 29 2023 2:44PM [facility] DIVISION OF RADIOLOGY * * *Final Report* * * DATE OF EXAM: Jan 29 2023 1:10PM LN 0336 - MRV BRAIN WO/W IVCON / PROCEDURE REASON: Idiopathic intracranial hypertension * * * * Physician Interpretation * * * * EXAMINATION: MRV BRAIN WO/W IVCON CLINICAL HISTORY: Idiopathic intracranial hypertension. TECHNIQUE: Intracranial 2-D gmbt-zg-izwvvz and postcontrast MRV with post-processing performed at the modality and 2D multiplanar and 3D maximum intensity projections were created, reviewed and archived. Contrast dose: 17 mL Dotarem administered intravenously. MQ: MRAB_4 COMPARISON: None. RESULT: INTRACRANIAL MRV: There is no evidence of significant narrowing, occlusion, or thrombosis of the dural venous sinuses. Note is made of a partially empty sella. DIVISION OF RADIOLOGY Provider, [facility] - 01/29/2023 * * *Final Report* * * DATE OF EXAM: Jan 29 2023 1:10PM LNM 0336 - MRV BRAIN WO/W IVCON / PROCEDURE REASON: Idiopathic intracranial hypertension * * * * Physician Interpretation * * * * EXAMINATION: MRV BRAIN WO/W IVCON CLINICAL HISTORY: Idiopathic intracranial hypertension. TECHNIQUE: Intracranial 2-D gboq-un-tilrfu and postcontrast MRV with post-processing performed at [...] Unremarkable MRV head with and without contrast. Jtac: PSCB Transcribe Date/Time: Jan 29 2023 2:40P Dictated by : JENNIFER RUVALCABA MD This examination was interpreted and the report reviewed and electronically signed by: JENNIFER RUVALCABA MD on Jan 29 2023 2:44PM EST [facility] Radiology Study observation (narrative) [facility] MRA Head veins WO and W cont rast IVOrdered By: Ccf Provider on 01-29-2023 [facility] CHEMISTRYOrdered By: SYSTEM SYSTEM on 01-15-2023 [...] 99 mL/min/1.73 m2 Normal >=59mL/min/1 .73 m2 [facility] Chem S Globulin (S) [Mass/Vol] 3.0 g/dL [...] 35.5 % Normal 34.0 - 46.0 % [facility] HemeAutoSS Hemoglobin (Bld) [Mass/Vol] 11.5 g/dL Low 12.0 - 16.0 gm/dL [facility] HemeAutoSS MCH (RBC) [Entitic mass] 30.9 pg Normal 27.0 - 34.0 pg [facility] HemeAutoSS MCHC (RBC) [Mass/Vol] 32.5 g/dL Normal 31.4 - 36.0 gm/dL [facility] HemeAutoSS MCV (RBC) [Entitic vol] 95.0 fL Normal 80.0 - 100.0 fL [facility] HemeAutoSS Platelet mean volume (Bld) [Entitic vol] 9.4 fL Normal 6.4 - 10.8 fL [facility] HemeAutoSS Platelets (Bld) [#/Vol] 325.0 E9/L Normal 150.0 - 500.0 E9/L [facility]eAutoSS RBC (Bld) [#/Vol] 3.7 E12/L Low 4.3 - 5.9 E12/L [facility] HemeAutoSS WBC corrected for nucl RBC Auto (Bld) [#/Vol] 8.8 E9/L Normal 4.0 - 11.0 E9/L [facility] HemeAutoSS SEROLOGYOrdered By: Yoli Robert on 01-15-2023 Beta hCG Ql Negative (01/15/23 11:31 AM) Normal [facility] Man Sero URINALYSISOrdered By: Jacki santana on 01-15-2023 Bacteria LM Ql (Urine sed) 1+ /HPF Invalid Interpretation Code Trace/HPF [facility] UA Auto SS Bilirubin Ql (U) Negative [...] PM) Normal Negative [facility] UA Auto SS [place].plasma/[place] .RBC (Bld) [Mass ratio] 0-3 /HPF Normal [...] [facility] UA Auto SS Urobilinogen Qn (U) 0.3877986 {Lucila'U}/dL Normal 0.0 - 1.0 EU/dL [facility] UA Auto SS WBC Auto Ql (U) 1+ *ABN* (01/15/23 12:51 PM) Invalid Interpretation Code Negative [facility] UA Auto SS WBC LM.HPF (Urine sed) [#/Area] 0-5 /HPF Normal 0-5/HPF [facility] UA Auto SS BLOOD BANKOrdered By: Myrna Contreras on 12-05-2022 ABO/Rh Interp Negative Invalid Interpretation Code [facility] BB Subsection ABSC Gel Interp Negative (12/05/22 7:24 AM) Normal [facility] BB Subsection URINALYSISOrdered By: Kimberli Martin on [...] AM) Normal Negative [facility] UA Auto SS [place].plasma/[place] .RBC (Bld) [Mass ratio] 0-3 /HPF Normal [...] [facility] UA Auto SS UA Spec Desc Catheter (12/05/22 10:05 AM) Normal [facility] UA Auto SS Urobilinogen Qn (U) 1.6851701 {Lucila'U}/dL Normal 0.0 - 1.0 EU/dL [facility] [...] rate/Area] mL/min/1.73 m2 Normal >=59mL/min/1 .73 m2 [facility] Chem S GFR/1.73 sq M.predicted among non-blacks MDRD (S/P/Bld) [Vol rate/Area] mL/min/1.73 m2 Normal >=59mL/min/1 .73 m2 [facility] Chem S Potassium [Moles/Vol] 3.6 mmol/L Normal 3.5 - 5.3 mmol/L FT Remisol Sodium [Moles/Vol] 135 mmol/L Normal 135 - 145 mmol/L [facility] Remisol Urea nitrogen [Mass/Vol] 14 mg/dL Normal 5 - 21 mg/dL [facility] Remisol COAGULATIONOrdered By: Genaro Robert on 11-21-2022 aPTT Coag (PPP) [Time] 30.4 s Normal 25.1 - 36.5 second(s) [facility] Auto Coag INR Coag (PPP) [Relative time] 0.9 {INR} Invalid Interpretation Code [facility] Auto Coag PT Coag (PPP) [Time] 9.9 s Normal 9.4 - 1 2.5 second(s) [facility] Auto Coag HEMATOLOGYOrdered By: Shasta Eller on 11-21-2022 Erythrocyte distribution width (RBC) [Ratio] 14.0 % Normal 10.9 - 14.2 % [facility] HemeAutoSS Hematocrit (Bld) [Volume fraction] 38.2 % Normal 34.0 - 46.0 % [facility] HemeAutoSS Hemoglobin (Bld) [Mass/Vol] 12.3 g/dL Normal [...] CNOVon 11-20-2022 CNOV Office Visit (NEADFV ) CASSIASHAZIA MALDONADO ([id number]) 1990 F Date Time Provider Department 11/20/22 8:00 AM EILEEN ALVAREZ During your visit today, we recorded the following information about you: Pulse Blood pressure Weight Height 67/minute 137/81 85.7 kg 1.702 m Last Period 10/23/22 Eileen Alvarez MD 11/20/2022 10:33 AM Signed [facility] New Patient Evaluation [...] due to congenital deformity, seen in the [facility] for: Idiopathic intracranial [...] her eyes. She has never seen an emr trainer. CSF protein 24, Glu 55, Pro 28, [...] due to congenital deformity, seen in the [facility] for: 1. Idiopathic [...] she agreed. She needs to follow with emr trainer every 6 months. In some patients with intracranial hypertension, there might be a concurrent transverse sinus stenosis and transverse sinus stenting may resolve the symptoms. I will do MRV. --HTN --H depression --Headache: there are a (more content not included)... Normal [facility] CBC AUTO DIFFon 10-30-2022 BASO # 0.0 103/ul Normal 0.0-0.1 [facility] Comment on above: Performed By: #### C JENNIE PATRICK LIPA #### [facility] [address] [place] [address] Dr. Manuel Sandhu Basophils/100 WBC (Bld) 0.5 % Normal 0.2-2.0 [facility] Comment on above: Performed By: #### C JENNIE PATRICK LIPA #### [facility] [address] [place] [address] Dr. Manuel Sandhu EO # 0.1 103/ul Normal 0.0-0.7 [facility] Comment on above: Performed By: #### C JENNIE PATRICK, LIPA #### [facility] [address] [place] [address] Dr. Manuel Sandhu Eosinophils/100 WBC (Bld) 1.6 % Normal 0.9-7.0 [facility] Comment on above: Performed By: #### C CELINA JENNIE, LIPA #### [facility] [address] [place] [address] Dr. Manuel Sandhu Erythrocyte distribution width (RBC) [Ratio] 13.8 % Normal 11.0-15.0 [facility] Comment on above: Performed By: #### C JENNIE PATRICK, LIPA #### [facility] [address] [place] [address] Dr. Manuel Sandhu Hematocrit (Bld) [Volume fraction] 38.7 % Normal 36.0-48.0 [facility] Comment on above: Performed By: #### C JENNIE PATRICK LIPA #### [facility] [address] [place] [address] Dr. Manuel Sandhu Hemoglobin (Bld) [Mass/Vol] 12.9 g/dL Normal 12.0-16.0 [facility] Comment on above: Performed By: #### C JENNIE PATRICK, LIPA #### [facility] [address] [place] [address] Dr. Manuel Sandhu IG # 0.03 10e3/ul Normal 0.00-0.03 [facility] Comment on above: Performed By: #### C JENNIE PATRICK, LIPA #### [facility] [address] [place] [address] Dr. Manuel Sandhu IG % 0.4 % Normal 0.0-0.5 [facility] Comment on above: Performed By: #### C JENNIE PATRICK, LIPA #### [facility] [address] [place] [address] Dr. Manuel Sandhu LYMPH # 2.1 103/ul Normal 1.2-3.8 [facility] Comment on above: Performed By: #### C JENNIE PATRICK LIPA #### [facility] [address] [place] [address] Dr. Manuel Sandhu Lymphocytes/100 WBC (Bld) 25.1 % Normal 20.5-60.0 [facility] Comment on above: Performed By: #### C JENNIE PATRICK LIPA #### [facility] [address] [place] [address] Dr. Manuel Sandhu MANUAL DIFF REQ NO Normal [facility] Comment on above: Performed By: #### C JENNIE PATRICK LIPA #### [facility] [address] [place] [address] Dr. Manuel Sandhu MCH (RBC) [Entitic mass] 32.0 pg Normal 26.7-34.0 [facility] Comment on above: Performed By: #### C JENNIE PATRICK LIPA #### [facility] [address] [place] [address] Dr. Manuel Sandhu MCHC (RBC) [Mass/Vol] 33.3 g/dL Normal 29.9-35.2 [facility] Comment on above: Performed By: #### C JENNIE PATRICK LIPA #### [facility] [address] [place] [address] Dr. Manuel Sandhu MCV (RBC) [Entitic vol] 96.0 fL Normal 81.0-99.0 [facility] Comment on above: Performed By: #### C JENNIE PATRICK LIPA #### [facility] [address] [place] [address] Dr. Manuel Sandhu MONO # 0.5 103/ul Normal 0.3-0.8 [facility] Comment on above: Performed By: #### C JENNIE PATRICK LIPA #### [facility] [address] [place] [address] Dr. Manuel Sandhu Monocytes/100 WBC (Bld) 5.7 % Normal 1.7-12.0 [facility] Comment on above: Performed By: #### C JENNIE PATRICK, LIPA #### [facility] [address] [address] [address] Manuel Sandhu NEUT # 5.6 103/ul Normal 1.4-6.5 [facility] Comment on above: Performed By: #### C JENNIE PATRICK, LIPA #### [facility] [address] [place] [address] Dr. Manuel Sandhu Neutrophils/100 WBC (Bld) 66.7 % Normal 43.0-75.0 [facility] Comment on above: Performed By: #### C CELINA JENNIE, LIPA #### [facility] [address] [place] [address] Dr. Manuel Sandhu Platelet mean volume (Bld) [Entitic vol] 10.9 fL Normal 9.5-13.5 [facility] Comment on above: Performed By: #### C CELINA JENNIE, LIPA #### [facility] [address] [place] [address] Dr. Manuel Sandhu PLT 310 103/ul Normal 150-450 [facility] Comment on above: Performed By: #### C CELINA JENNIE, LIPA #### [facility] [address] [place] [address] Dr. Manuel Sandhu RBC 4.03 106/ul Critically low 4.20-5.40 [facility] Comment on above: Performed By: #### C CELINA JENNIE, LIPA #### [facility] [address] [place] [address] Dr. Manuel Sandhu WBC 8.4 103/ul Normal 4.0-11.0 [facility] Comment on above: Performed By: #### C CELINA JENNIE, LIPA #### [facility] [address] [place] [address] Dr. Manuel Sandhu ER URINE PROFILEon 3 Bilirubin Ql (U) Negative Normal NEGATIVE [facility] Comment on above: Performed By: #### U MICRO, ERUR #### [facility] [address] [place] [address] Dr. Manuel Sandhu Clarity (U) CLEAR Normal CLEAR [facility] Comment on above: Performed By: #### U MICRO, ERUR #### [facility] [address] [address] [address] Manuel Sandhu Color (U) LT. YELLOW Normal YELLOW [facility] Comment on above: Performed By: #### U MICRO, ERUR #### [facility] [address] [address] [address] Manuel CUNHA A micrscopic examination will be performed if indicated. Normal [facility] Comment on above: Performed By: #### U MICRO, ERUR #### [facility] [address] [address] [address] Manuel Sandhu Glucose Ql (U) Negative Normal NEGATIVE [facility] Comment on above: Performed By: #### U MICRO, ERUR #### [facility] [address] [address] [address] Manuel Sandhu Hemoglobin Ql (U) LARGE Abnormal NEGATIVE [facility] Comment on above: Performed By: #### U MICRO, ERUR #### [facility] [address] [address] [address] Manuel Sandhu Ketones Ql (U) Negative Normal NEGATIVE [facility] Comment on above: Performed By: #### U MICRO, ERUR #### [facility] [address] [address] [address] Manuel Sandhu LEUKOCYTES TRACE Abnormal NEGATIVE [facility] Comment on above: Performed By: #### U MICRO, ERUR #### [facility] [address] [address] [address] Manuel Sandhu Nitrite Ql (U) Negative Normal NEGATIVE [facility] Comment on above: Performed By: #### U MICRO, ERUR #### [facility] [address] [address] [address] Manuel Sandhu pH (U) 6.5 [pH] Normal 5-9 [facility] Comment on above: Performed By: #### U MICRO, ERUR #### [facility] [address] [address] [address] Manuel Sandhu SPEC GRAVITY <=1.005 Abnormal 1.005-<=1.02 5 [facility] Comment on above: Performed By: #### U MICRO, ERUR #### [facility] [address] [place] [address] Dr. Manuel Sandhu UA PROTEIN Negative Normal NEGATIVE/ TRACE [facility] Comment on above: Performed By: #### U MICRO, ERUR #### [facility] [address] [place] [address] Dr. Manuel Sandhu UR MICRO IND INDICATED Normal [facility] Comment on above: Performed By: #### U MICRO, ERUR #### [facility] [address] [place] [address] Dr. Manuel Sandhu Urobilinogen Qn (U) 0.2 {Lucila'U}/dL Normal 0.2 - 1. 0 [facility] Comment on above: Performed By: #### U MICRO, ERUR #### [facility] [address] [place] [address] Dr. Manuel Sandhu PROF CHEM 8 (BAS METB)on Anion gap [Moles/Vol] 11.7 mmol/L Normal [facility] Comment on above: Performed By: #### C MP, JENNIE, LIPA #### [facility] [address] [place] [address] Dr. Manuel Sandhu Calcium [Mass/Vol] 9.1 mg/dL Normal 8.5-10.1 [facility] Comment on above: Performed By: #### C MP, JENNIE, LIPA #### [facility] [address] [place] [address] Dr. Manuel Sandhu Chloride [Moles/Vol] 105 mmol/L Normal 98-107 [facility] Comment on above: Performed By: #### C MP, JENNIE, LIPA #### [facility] [address] [place] [address] Dr. Manuel Sandhu CO2 [Moles/Vol] 26.8 mmol/L Normal 21.0-32.0 [facility] Comment on above: Performed By: #### C MP, JENNIE, LIPA #### [facility] [address] [place] [address] Dr. Manuel Sandhu Creatinine [Mass/Vol] 0.62 mg/dL Normal 0.55-1.02 [facility] Comment on above: Performed By: #### C MP JENNIE, LIPA #### [facility] [address] [place] [address] Dr. Manuel Sandhu EGFR-AF MEXICAN >60 Normal >=60 [facility] Comment on above: Performed By: #### C MP, JENNIE, LIPA #### [facility] [address] [place] [address] Dr. Manuel Sandhu EGFR-NON AF MEXICAN >60 Normal >=60 [facility] Comment on above: Performed By: #### C MP JENNIE, LIPA #### [facility] [address] [place] [address] Dr. Manuel Sandhu Glucose [Mass/Vol] 92 mg/dL Normal 74-106 [facility] Comment on above: Performed By: #### C CELINA JENNIE, LIPA #### [facility] [address] [place] [address] Dr. Manuel Sandhu Potassium [Moles/Vol] 3.5 mmol/L Normal 3.5-5.1 [facility] Comment on above: Performed By: #### C CELINA JENNIE, LIPA #### [facility] [address] [place] [address] Dr. Manuel Sandhu Sodium [Moles/Vol] 140 mmol/L Normal 136-145 [facility] Comment on above: Performed By: #### C CELINA JENNIE, LIPA #### [facility] [address] [place] [address] Dr. Manuel Sandhu Urea nitrogen [Mass/Vol] 8.0 mg/dL Normal 7.0-18.0 [facility] Comment on above: Performed By: #### C MP JENNIE, LIPA #### [facility] [address] [place] [address] Dr. Mnauel Sandhu Urea nitrogen/Creatinine [Mass ratio] 12.9 mg/mg Normal [facility] Comment on above: Performed By: #### C MP JENNIE, LIPA #### [facility] [address] [place] [address] Dr. Manuel Sandhu URINE MICROSCOPIC ONLYon BACTERIA NONE SEEN Normal NONE SEEN [facility] Comment on above: Performed By: #### U MICRO, ERUR #### [facility] [address] [place] [address] Dr. Manuel Sandhu Bacteria identified Cx Nom (U) NOT INDICATED Normal [facility] Comment on above: Performed By: #### U MICRO, ERUR #### [facility] [address] [place] [address] Dr. Manuel Sandhu CAST NONE SEEN Normal NONE SEEN [facility] Comment on above: Performed By: #### U MICRO, ERUR #### [facility] [address] [place] [address] Dr. Manuel Sandhu Crystals LM Nom (Urine sed) NONE SEEN Normal NONE SEEN [facility] Comment on above: Performed By: #### U MICRO, ERUR #### [facility] [address] [place] [address] Dr. Manuel Sandhu Epithelial cells LM Ql (Urine sed) FEW Abnormal NONE SEEN /RARE [facility] Comment on above: Performed By: #### U MICRO, ERUR #### [facility] [address] [place] [address] Dr. Manuel Sandhu MUCOUS TRACE Abnormal NONE SEEN [facility] Comment on above: Performed By: #### U MICRO, ERUR #### [facility] [address] [place] [address] Dr. Manuel Sandhu RBC 5-10 Abnormal 0-2 [facility] Comment on above: Performed By: #### U MICRO, ERUR #### [facility] [address] [place] [address] Dr. Manuel Sandhu WBC 2-5 Abnormal NONE SEEN [facility] Comment on above: Performed By: #### U MICRO, ERUR #### [facility] [address] [place] [address] Dr. Manuel Sandhu No Panel InformationOrdered By: Dorita Niño on 08-19-2022 CSF Glucose 55 mg/dL 40-70 [facility] CSF Total Protein 24 mg/dL 15-45 [facility] CBC AUTO DIFFon 08-16-2022 BASO # 0.1 103/ul Normal 0.0-0.1 [facility] Comment on above: Performed By: #### U MICRO, ERUR #### [facility] [address] [place] [address] Dr. Manuel Sandhu Basophils/100 WBC (Bld) 0.4 % Normal 0.2-2.0 [facility] Comment on above: Performed By: #### U MICRO, ERUR #### [facility] [address] [place] [address] Dr. Manuel Sandhu EO # 0.2 103/ul Normal 0.0-0.7 [facility] Comment on above: Performed By: #### U MICRO, ERUR #### [facility] [address] [place] [address] Dr. Manuel Sandhu Eosinophils/100 WBC (Bld) 1.8 % Normal 0.9-7.0 [facility] Comment on above: Performed By: #### U MICRO, ERUR #### [facility] [address] [place] [address] Dr. Manuel Sandhu Erythrocyte distribution width (RBC) [Ratio] 13.6 % Normal 11.0-15.0 [facility] Comment on above: Performed By: #### U MICRO, ERUR #### [facility] [address] [place] [address] Dr. Manuel Sandhu Hematocrit (Bld) [Volume fraction] 35.8 % Critically low 36.0-48.0 [facility] Comment on above: Performed By: #### U MICRO, ERUR #### [facility] [address] [place] [address] Dr. Manuel Sandhu Hemoglobin (Bld) [Mass/Vol] 12.2 g/dL Normal 12.0-16.0 [facility] Comment on above: Performed By: #### U MICRO, ERUR #### [facility] [address] [place] [address] Dr. Manuel Sandhu IG # 0.05 10e3/ul Critically high 0.00-0.03 [facility] Comment on above: Performed By: #### U MICRO, ERUR #### [facility] [address] [address] [address] Manuel Sandhu IG % 0.4 % Normal 0.0-0.5 [facility] Comment on above: Performed By: #### U MICRO, ERUR #### [facility] [address] [address] [address] Manuel Sandhu LYMPH # 2.0 103/ul Normal 1.2-3.8 [facility] Comment on above: Performed By: #### U MICRO, ERUR #### [facility] [address] [address] [address] Manuel Sandhu Lymphocytes/100 WBC (Bld) 18.1 % Critically low 20.5-60.0 [facility] Comment on above: Performed By: #### U MICRO, ERUR #### [facility] [address] [address] [address] Manuel Sandhu MANUAL DIFF REQ NO Normal [facility] Comment on above: Performed By: #### U MICRO, ERUR #### [facility] [address] [address] [address] Manuel Sandhu MCH (RBC) [Entitic mass] 32.0 pg Normal 26.7-34.0 [facility] Comment on above: Performed By: #### U MICRO, ERUR #### [facility] [address] [address] [address] Manuel Sandhu MCHC (RBC) [Mass/Vol] 34.1 g/dL Normal 29.9-35.2 [facility] Comment on above: Performed By: #### U MICRO, ERUR #### [facility] [address] [address] [address] Manuel Sandhu MCV (RBC) [Entitic vol] 94.0 fL Normal 81.0-99.0 [facility] Comment on above: Performed By: #### U MICRO, ERUR #### [facility] [address] [address] [address] Manuel aSndhu MONO # 0.7 103/ul Normal 0.3-0.8 [facility] Comment on above: Performed By: #### U MICRO, ERUR #### [facility] [address] [address] [address] Manuel Sandhu Monocytes/100 WBC (Bld) 5.8 % Normal 1.7-12.0 [facility] Comment on above: Performed By: #### U MICRO, ERUR #### [facility] [address] [address] [address] Manuel Sandhu NEUT # 8.2 103/ul Critically high 1.4-6.5 [facility] Comment on above: Performed By: #### U MICRO, ERUR #### [facility] [address] [place] [address] Dr. Manuel Sandhu Neutrophils/100 WBC (Bld) 73.5 % Normal 43.0-75.0 [facility] Comment on above: Performed By: #### U MICRO, ERUR #### [facility] [address] [place] [address] Dr. Manuel Sandhu Platelet mean volume (Bld) [Entitic vol] 11.3 fL Normal 9.5-13.5 [facility] Comment on above: Performed By: #### U MICRO, ERUR #### [facility] [address] [place] [address] Dr. Manuel aSndhu PLT 284 103/ul Normal 150-450 [facility] Comment on above: Performed By: #### U MICRO, ERUR #### [facility] [address] [place] [address] Dr. Manuel Sandhu RBC 3.81 106/ul Critically low 4.20-5.40 [facility] Comment on above: Performed By: #### U MICRO, ERUR #### [facility] [address] [place] [address] Dr. Manuel Sandhu WBC 11.2 103/ul Critically high 4.0-11.0 [facility] Comment on above: Performed By: #### U MICRO, ERUR #### [facility] [address] [place] [address] Dr. Manuel Sandhu D-DIMERon 08-16-2022 D-DIMER 0.34 mg/L FEU Normal <=0.59 [facility] Comment on above: Performed By: #### U MICRO, ERUR #### [facility] [address] [place] [address] Dr. Manuel Sandhu D-DIMER COMMENTS SEE BELOW Normal [facility] Comment on above: Result Comment: Incr [...] #### U MICRO, ERUR #### [facility] [address] [place] [address] Dr. Manuel Sandhu PROF CHEM 8 (BAS METB)on Anion gap [Moles/Vol] 10.6 mmol/L Normal [facility] Comment on above: Performed By: #### I NFLUAB #### [facility] [address] [place] [address] Dr. Manuel Sandhu Calcium [Mass/Vol] 9.2 mg/dL Normal 8.5-10.1 [facility] Comment on above: Performed By: #### I NFLUAB #### [facility] [address] [place] [address] Dr. Manuel Sandhu Chloride [Moles/Vol] 103 mmol/L Normal 98-107 [facility] Comment on above: Performed By: #### I NFLUAB #### [facility] [address] [place] [address] Dr. Manuel Sandhu CO2 [Moles/Vol] 28.4 mmol/L Normal 21.0-32.0 [facility] Comment on above: Performed By: #### I NFLUAB #### [facility] [address] [place] [address] Dr. Manuel Sandhu Creatinine [Mass/Vol] 0.61 mg/dL Normal 0.55-1.02 [facility] Comment on above: Performed By: #### I NFLUAB #### [facility] [address] [address] [address] Manuel Sandhu EGFR-AF MEXICAN >60 Normal >=60 [facility] Comment on above: Performed By: #### I NFLUAB #### [facility] [address] [address] [address] Manuel Sandhu EGFR-NON AF MEXICAN >60 Normal >=60 [facility] Comment on above: Performed By: #### I NFLUAB #### [facility] [address] [address] [address] Manuel Sandhu Glucose [Mass/Vol] 90 mg/dL Normal 74-106 [facility] Comment on above: Performed By: #### I NFLUAB #### [facility] [address] [address] [address] Manuel Sandhu Potassium [Moles/Vol] 4.0 mmol/L Normal 3.5-5.1 [facility] Comment on above: Performed By: #### I NFLUAB #### [facility] [address] [address] [address] Manuel Sandhu Sodium [Moles/Vol] 138 mmol/L Normal 136-145 [facility] Comment on above: Performed By: #### I NFLUAB #### [facility] [address] [address] [address] Manuel Sandhu Urea nitrogen [Mass/Vol] 16.0 mg/dL Normal 7.0-18.0 [facility] Comment on above: Performed By: #### I NFLUAB #### [facility] [address] [address] [address] Manuel Sandhu Urea nitrogen/Creatinine [Mass ratio] 26.2 mg/mg Normal [facility] Comment on above: Performed By: #### I NFLUAB #### [facility] [address] [address] [address] Manuel Sandhu XR CHEST 1 Von [...] Date: 2022-08-16 14:16 Normal [facility] Albumin [Mass/volume] in Ser um or PlasmaOrdered By: Sangeetha Peña on 08-12-2022 Albumin [Mass/Vol] 3.2 g/dL 3.2-5.5 [facility] Basophils Auto (Bld) [#/Vol] Ordered By: Sangeetha Peña on 08-12-2022 Basophils (Bld) [#/Vol] 0.1 10*3/uL 0.0-0.2 [facility] Basophils/100 WBC Auto (Bld) Ordered By: Sangeetha Peña on 08-12-2022 Basophils/100 WBC (Bld) 0.7 % . [facility] C reactive protein [Mass/vol ume] in Serum or PlasmaOrdered By: Sangeetha Peña on 08-12-2022 CRP [Mass/Vol] 0.5 mg/dL 0.0-1.0 [facility] Creatinine and Glomerular fi ltration rate.predicted panel (S/P/Bld)Ordered By: Sangeetha Peña on 08-12-2022 Creatinine [Mass/Vol] 0.65 mg/dL 0.44-1.03 [facility] Eosinophils Auto (Bld) [#/Vo l]Ordered By: Sangeetha Peña on 08-12-2022 Eosinophils (Bld) [#/Vol] 0.4 10*3/uL 0.0-0.45 [facility] Eosinophils/100 WBC Auto (Bl d)Ordered By: Sangeetha Peña on 08-12-2022 Eosinophils/100 WBC (Bld) 5.2 % . [facility] Erythrocyte distribution wid th Auto (RBC) [Ratio]Ordered By: Sangeetha Peña on 08-12-2022 Erythrocyte distribution width (RBC) [Ratio] 14.4 % 11.9-15.3 [facility] Erythrocyte sedimentation ra te by Photometric methodOrdered By: Dorita Niño on 08-12-2022 ESR Photometric method (Bld) [Velocity] 3 mm/hr 0-19 [facility] Estimated glomerular filtrat ion rate (GFR) non- AmericanOrdered By: Sangeetha Peña on 08-12-2022 GFR/1.73 sq M.predicted among non-blacks MDRD (S/P/Bld) [Vol rate/Area] > 60 mL/Min [facility] Folate [Mass/volume] in Seru m or PlasmaOrdered By: Lizzeth Malave on 08-12-2022 Folate [Mass/Vol] 15.3 ng/mL >5.9 [facility] Comment on above: Folate reference ran ge: >5.9 ng/mlThe WHO technical consultation on folate and vitamin [id number] has determined that folate concentrations lessthan 4 ng/ml are considered deficient. Globulin Calc (S) [Mass/Vol] Ordered By: Sangeetha Peña on 08-12-2022 Globulin (S) [Mass/Vol] 2.4 g/dL [facility] HCG ( test) IA.rapi d Ql (U)Ordered By: Lizzeth Malave on 08-12-2022 HCG ( test) Ql (U) Negative [facility] Hematocrit Auto (Bld) [Volum e fraction]Ordered By: Sangeetha Peña on 08-12-2022 Hematocrit (Bld) [Volume fraction] 34.6 % 34.0-46.4 [facility] Hemoglobin [Mass/volume] in BloodOrdered By: Sangeetha Peña on 08-12-2022 Hemoglobin (Bld) [Mass/Vol] 11.3 g/dL 11.8-15.4 [facility] - Chemistry and C hemistry - challengeOrdered By: Lizzeth Malave on 08-12-2022 Cobalamin (Vitamin B12) [Mass/Vol] 610 pg/mL 180-914 [facility] Magnesium [Mass/Vol] 1.9 mg/dL 1.6-2.6 [facility] - Hematology and Cell countsOrdered By: Sangeetha Peña on 08-12-2022 Nucleated RBC/100 WBC (Bld) [Ratio] 0.1 % 0-0.5 [facility] Leukocytes [#/volume] in Blo od by Automated countOrdered By: Sangeetha Peña on 08-12-2022 WBC (Bld) [#/Vol] 8.3 10*3/uL 4.5-11.0 [facility] Lymphocytes Auto (Bld) [#/Vo l]Ordered By: Sangeetha Peña on 08-12-2022 Lymphocytes (Bld) [#/Vol] 2.3 10*3/uL 1.00-4.8 [facility] Lymphocytes/100 WBC Auto (Bl d)Ordered By: Sangeetha Peña on 08-12-2022 Lymphocytes/100 WBC (Bld) 27.4 % . [facility] MCH Auto (RBC) [Entitic mass ]Ordered By: Sangeetha Peña on 08-12-2022 MCH (RBC) [Entitic mass] 32.0 pg 24.7-34.3 [facility] MCHC Auto (RBC) [Mass/Vol]Or dered By: Sangeetha Peña on 08-12-2022 MCHC (RBC) [Mass/Vol] 32.8 g/dL 32.0-35.0 [facility] MCV Auto (RBC) [Entitic vol] Ordered By: Sangeetha Peña on 08-12-2022 MCV (RBC) [Entitic vol] 97.7 fL 80-100 [facility] Monocytes Auto (Bld) [#/Vol] Ordered By: Sangeetha Peña on 08-12-2022 Monocytes (Bld) [#/Vol] 0.7 10*3/uL 0.0-0.8 [facility] Monocytes/100 WBC Auto (Bld) Ordered By: Sangeetha Peña on 08-12-2022 Monocytes/100 WBC (Bld) 8.7 % . [facility] Neutrophils Auto (Bld) [#/Vo l]Ordered By: Sangeetha Peña on 08-12-2022 Neutrophils (Bld) [#/Vol] 4.8 10*3/uL 1.8-7.7 [facility] Neutrophils/100 WBC Auto (Bl d)Ordered By: Sangeetha Peña on 08-12-2022 Neutrophils/100 WBC (Bld) 58.0 % . [facility] No Panel InformationOrdered By: Sangeetha Peña on 08-12-2022 Estimated GFR () > 60 mL/Min [facility] Comment on above: GFR estimated refere nce range: According to KDOQI guidelines, <60 ml/min/1.73m2 is sufficient to diagnose a patient with chronic kidney disease. Pharmacy Creatinine Clearance (Chem 140.31 [facility] Platelet mean volume Auto (B ld) [Entitic vol]Ordered By: Sangeetha Peña on 08-12-2022 Platelet mean volume (Bld) [Entitic vol] 10.2 fL 6.3-10.7 [facility] Platelets Auto (Bld) [#/Vol] Ordered By: Sangeetha Peña on 08-12-2022 Platelets (Bld) [#/Vol] 263 10*3/uL 150-450 [facility] Protein [Mass/volume] in Ser um or PlasmaOrdered By: Sangeetha Peña on 08-12-2022 Protein [Mass/Vol] 5.6 g/dL 6.1-7.9 [facility] RBC Auto (Bld) [#/Vol]Ordere d By: Sangeetha Peña on 08-12-2022 RBC (Bld) [#/Vol] 3.54 10*6/uL 3.60-5.00 [facility] Serum or plasma alanine alberto otransferase measurement without P-5'-P (enzymatic activiOrdered By: Sangeetha Peña on 08-12-2022 ALT No additional P-5'-P [Catalytic activity/Vol] 22 U/L 10-60 [facility] Serum or plasma albumin/glob ulin mass ratioOrdered By: Sangeetha Peña on 08-12-2022 Albumin/Globulin [Mass ratio] 1.3 {ratio} [facility] Serum or plasma alkaline marquez sphatase measurement (enzymatic activity/volume)Ordered By: Sangeetha Peña on 08-12-2022 ALP [Catalytic activity/Vol] 54 U/L 32-92 [facility] Serum or plasma anion gap de terminationOrdered By: Sangeetha Peña on 08-12-2022 Anion gap [Moles/Vol] 10.6 mmol/L 6.0-15.0 [facility] Serum or plasma aspartate am inotransferase measurement (enzymatic activity/volume)Ordered By: Sangeetha Peña on 08-12-2022 AST [Catalytic activity/Vol] 20 U/L 10-42 [facility] Serum or plasma calcium audie urement (mass/volume)Ordered By: Sangeetha Peña on 08-12-2022 Calcium [Mass/Vol] 8.8 mg/dL 8.2-10.2 [facility] Serum or plasma chloride nimisha surement (moles/volume)Ordered By: Sangeetha Peña on 08-12-2022 Chloride [Moles/Vol] 105 mmol/L 95-114 [facility] Serum or plasma glucose audie urement (mass/volume)Ordered By: Sangeetha Peña on 08-12-2022 Glucose [Mass/Vol] 85 mg/dL 70-100 [facility] Comment on above: ADA recommended refe rence rangeRandom Glucose Reference Range is dependent on time and content of last meal. Glucose of more than 200 mg/dL in a nonstressed, ambulatory subject supports the diagnosis of Diabetes Mellitus. Serum or plasma potassium me asurement (moles/volume)Ordered By: Sangeetha Peña on 08-12-2022 Potassium [Moles/Vol] 4.2 mmol/L 3.5-5.1 [facility] Serum or plasma sodium measu rement (moles/volume)Ordered By: Sangeetha Peña on 08-12-2022 Sodium [Moles/Vol] 140 mmol/L 136-146 [facility] Serum or plasma total biliru bin measurement (mass/volume)Ordered By: Sangeetha Peña on 08-12-2022 Bilirubin [Mass/Vol] 0.5 mg/dL 0.3-1.2 [facility] Serum or plasma total carbon dioxide measurement (moles/volume)Ordered By: Sangeetha Peña on 11-29-2022 CO2 [Moles/Vol] 28.6 mmol/L 22.0-30.0 [facility] Serum or plasma urea nitroge n measurement (mass/volume)Ordered By: Sangeetha Peña on 08-12-2022 Urea nitrogen [Mass/Vol] 7 mg/dL 06-06 [facility] TSH DL <= 0.005 mIU/L QnOrde red By: Lizzeth Malave on 08-12-2022 TSH Qn 1.79 m[IU]/L 0.45-5.33 [facility] Troponin I.cardiac [Mass/vol ume] in Serum or Plasma by High sensitivity methodOrdered By: Lizzeth Malave on 08-12-2022 Troponin I.cardiac High sensitivity method [Mass/Vol] < 3 pg/mL 015 [facility] CBC AUTO DIFFon 08-11-2022 BASO # 0.1 103/ul Normal 0.0-0.1 [facility] Comment on above: Performed By: #### C JENNIE PATRICK LIPA #### [facility] [address] [place] [address] Dr. Manuel Sandhu Basophils/100 WBC (Bld) 0.5 % Normal 0.2-2.0 [facility] Comment on above: Performed By: #### C JENNIE PATRICK LIPA #### [facility] [address] [address] [address] Manuel Sandhu EO # 0.4 103/ul Normal 0.0-0.7 [facility] Comment on above: Performed By: #### C JENNIE PATRICK LIPA #### [facility] [address] [address] [address] Manuel Sandhu Eosinophils/100 WBC (Bld) 2.4 % Normal 0.9-7.0 [facility] Comment on above: Performed By: #### C JENNIE PATRICK LIPA #### [facility] [address] [address] [address] Manuel Sandhu Erythrocyte distribution width (RBC) [Ratio] 14.1 % Normal 11.0-15.0 [facility] Comment on above: Performed By: #### C JENNIE PATRICK LIPA #### [facility] [address] [place] [address] Dr. Manuel Sandhu Hematocrit (Bld) [Volume fraction] 39.4 % Normal 36.0-48.0 [facility] Comment on above: Performed By: #### C MP, JENNIE, LIPA #### [facility] [address] [place] [address] Dr. Manuel Sandhu Hemoglobin (Bld) [Mass/Vol] 13.3 g/dL Normal 12.0-16.0 [facility] Comment on above: Performed By: #### C MP, JENNIE, LIPA #### [facility] [address] [place] [address] Dr. Manuel Sandhu IG # 0.07 10e3/ul Critically high 0.00-0.03 [facility] Comment on above: Performed By: #### C MP, JENNIE, LIPA #### [facility] [address] [place] [address] Dr. Manuel Sandhu IG % 0.5 % Normal 0.0-0.5 [facility] Comment on above: Performed By: #### C MP, JENNIE, LIPA #### [facility] [address] [place] [address] Dr. Manuel Sandhu LYMPH # 3.6 103/ul Normal 1.2-3.8 [facility] Comment on above: Performed By: #### C MP, JENNIE, LIPA #### [facility] [address] [place] [address] Dr. Manuel Sandhu Lymphocytes/100 WBC (Bld) 23.5 % Normal 20.5-60.0 [facility] Comment on above: Performed By: #### C MP, JENNIE, LIPA #### [facility] [address] [place] [address] Dr. Manuel Sandhu MANUAL DIFF REQ NO Normal [facility] Comment on above: Performed By: #### C MP, JENNIE, LIPA #### [facility] [address] [place] [address] Dr. Manuel Sandhu MCH (RBC) [Entitic mass] 32.1 pg Normal 26.7-34.0 [facility] Comment on above: Performed By: #### C JENNIE PATRICK LIPA #### [facility] [address] [place] [address] Dr. Manuel Sandhu MCHC (RBC) [Mass/Vol] 33.8 g/dL Normal 29.9-35.2 [facility] Comment on above: Performed By: #### C JENNIE PATRICK LIPA #### [facility] [address] [place] [address] Dr. Manuel Sandhu MCV (RBC) [Entitic vol] 95.2 fL Normal 81.0-99.0 [facility] Comment on above: Performed By: #### C JENNIE PATRICK LIPA #### [facility] [address] [place] [address] Dr. Manuel Sandhu MONO # 0.9 103/ul Critically high 0.3-0.8 [facility] Comment on above: Performed By: #### C JENNIE PATRICK LIPA #### [facility] [address] [place] [address] Dr. Manuel Sandhu Monocytes/100 WBC (Bld) 5.8 % Normal 1.7-12.0 [facility] Comment on above: Performed By: #### C JENNIE PATRICK LIPA #### [facility] [address] [place] [address] Dr. Manuel Sandhu NEUT # 10.3 103/ul Critically high 1.4-6.5 [facility] Comment on above: Performed By: #### C JENNIE PATRICK LIPA #### [facility] [address] [place] [address] Dr. Manuel Sandhu Neutrophils/100 WBC (Bld) 67.3 % Normal 43.0-75.0 [facility] Comment on above: Performed By: #### C JENNIE PATRICK LIPA #### [facility] [address] [place] [address] Dr. Manuel Sandhu Platelet mean volume (Bld) [Entitic vol] 11.4 fL Normal 9.5-13.5 [facility] Comment on above: Performed By: #### C JENNIE PATRICK LIPA #### [facility] [address] [place], [place] [address] Dr. Manuel Sandhu PLT 364 103/ul Normal 150-450 [facility] Comment on above: Performed By: #### C JENNIE PATRICK, LIPA #### [facility] [address] [place], [place] [address] Dr. Manuel Sandhu RBC 4.14 106/ul Critically low 4.20-5.40 [facility] Comment on above: Performed By: #### C JENNIE PATRICK LIPA #### [facility] [address] [place], [place] [address] Dr. Manuel Sandhu WBC 15.3 103/ul Critically high 4.0-11.0 [facility] Comment on above: Performed By: #### C JENNIE PATRICK LIPA #### [facility] [address] [place], [place] [address] STROKE HEAD WOon [...] Date: 2022-08-11 15:21 Normal [facility] ER URINE PROFILEon 2 Bilirubin Ql (U) Negative Normal NEGATIVE [facility] Comment on above: Performed By: #### U MICRO, ERUR #### [facility] [address] [address] [address] Manuel Sandhu Clarity (U) CLEAR Normal CLEAR [facility] Comment on above: Performed By: #### U MICRO, ERUR #### [facility] [address] [address] [address] Manuel Sandhu Color (U) LT. YELLOW Normal YELLOW [facility] Comment on above: Performed By: #### U MICRO, ERUR #### [facility] [address] [address] [address] Manuel DE DIOSD A micrscopic examination will be performed if indicated. Normal [facility] Comment on above: Performed By: #### U MICRO, ERUR #### [facility] [address] [place] [address] Dr. Manuel Sandhu Glucose Ql (U) Negative Normal NEGATIVE [facility] Comment on above: Performed By: #### U MICRO, ERUR #### [facility] [address] [address] [address] Manuel Sandhu Hemoglobin Ql (U) Negative Normal NEGATIVE [facility] Comment on above: Performed By: #### U MICRO, ERUR #### [facility] [address] [address] [address] Manuel Sandhu Ketones Ql (U) Negative Normal NEGATIVE [facility] Comment on above: Performed By: #### U MICRO, ERUR #### [facility] [address] [address] [address] Manuel Sandhu LEUKOCYTES Negative Normal NEGATIVE [facility] Comment on above: Performed By: #### U MICRO, ERUR #### [facility] [address] [address] [address] Manuel Sandhu Nitrite Ql (U) Negative Normal NEGATIVE [facility] Comment on above: Performed By: #### U MICRO, ERUR #### [facility] [address] [address] [address] Manuel Sandhu pH (U) 7.0 [pH] Normal 5-9 [facility] Comment on above: Performed By: #### U MICRO, ERUR #### [facility] [address] [place] [address] Dr. Manuel Sandhu SPEC GRAVITY <=1.005 Abnormal 1.005-<=1.02 5 [facility] Comment on above: Performed By: #### U MICRO, ERUR #### [facility] [address] [place] [address] Dr. Manuel Sandhu UA PROTEIN Negative Normal NEGATIVE/ TRACE [facility] Comment on above: Performed By: #### U MICRO, ERUR #### [facility] [address] [place] [address] Dr. Manuel Sandhu UR MICRO IND NOT INDICATED Normal [facility] Comment on above: Performed By: #### U MICRO, ERUR #### [facility] [address] [place] [address] Dr. Manuel Sandhu Urobilinogen Qn (U) 0.2 {Lucila'U}/dL Normal 0.2 - 1. 0 [facility] Comment on above: Performed By: #### U MICRO, ERUR #### [facility] [address] [place] [address] Dr. Manuel Sandhu LACTATE/LACTIC ACIDon 2021 Lactate [Moles/Vol] 1.5 mmol/L Normal 0.4-1.9 [facility] Comment on above: Performed By: #### I NFLUAB #### [facility] [address] [place] [address] Dr. Manuel Sandhu LIPASEon 08-11-2022 Lipase [Catalytic activity/Vol] 84.0 U/L Normal 73.0-393.0 [facility] Comment on above: Performed By: #### C MP, JENNIE, LIPA #### [facility] [address] [place] [address] Dr. Manuel Sandhu URon 08-11-2022 , QUAL Negative Normal NEGATIVE [facility] Comment on above: Performed By: #### U MICRO, ERUR #### [facility] [address] [address] [address] Manuel Sandhu PROF 14(COMP METB)on 022 Albumin [Mass/Vol] 4.3 g/dL Normal 3.4-5.0 [facility] Comment on above: Performed By: #### C MP, JENNIE, LIPA #### [facility] [address] [address] [address] Manuel Sandhu Albumin/Globulin [Mass ratio] 1.1 {ratio} Normal [facility] Comment on above: Performed By: #### C MP, JENNIE, LIPA #### [facility] [address] [address] [address] Manuel Sandhu ALP [Catalytic activity/Vol] 87 U/L Normal 46-116 [facility] Comment on above: Performed By: #### C MP, JENNIE, LIPA #### [facility] [address] [place] [address] Dr. Manuel Sandhu ALT [Catalytic activity/Vol] 32 U/L Normal 14-59 [facility] Comment on above: Performed By: #### C MP, EJNNIE, LIPA #### [facility] [address] [address] [address] Manuel Sandhu Anion gap [Moles/Vol] 12.7 mmol/L Normal [facility] Comment on above: Performed By: #### C MP, JENNIE, LIPA #### [facility] [address] [place] [address] Dr. Manuel Sandhu AST [Catalytic activity/Vol] 24 U/L Normal 15-37 [facility] Comment on above: Performed By: #### C MP, JENNIE, LIPA #### [facility] [address] [address] [address] Manuel Sandhu Bilirubin [Mass/Vol] 0.3 mg/dL Normal 0.2-1.0 [facility] Comment on above: Performed By: #### C MP, JENNIE, LIPA #### [facility] [address] [address] [address] Manuel Sandhu Calcium [Mass/Vol] 9.4 mg/dL Normal 8.5-10.1 [facility] Comment on above: Performed By: #### C CELINA JENNIE, LIPA #### [facility] [address] [address] [address] Manuel Sandhu Chloride [Moles/Vol] 100 mmol/L Normal 98-107 [facility] Comment on above: Performed By: #### C CELINA JENNIE, LIPA #### [facility] [address] [place] [address] Dr. Manuel Sandhu CO2 [Moles/Vol] 27.7 mmol/L Normal 21.0-32.0 [facility] Comment on above: Performed By: #### C CELINA JENNIE, LIPA #### [facility] [address] [place] [address] Dr. Manuel Sandhu Creatinine [Mass/Vol] 0.71 mg/dL Normal 0.55-1.02 [facility] Comment on above: Performed By: #### C CELINA JENNIE, LIPA #### [facility] [address] [place] [address] Dr. Manuel Sandhu EGFR-AF MEXICAN >60 Normal >=60 [facility] Comment on above: Performed By: #### C CELINA JENNIE, LIPA #### [facility] [address] [place] [address] Dr. Manuel Sandhu EGFR-NON AF MEXICAN >60 Normal >=60 [facility] Comment on above: Performed By: #### C CELINA JENNIE, LIPA #### [facility] [address] [place] [address] Dr. Manuel Sandhu Globulin (S) [Mass/Vol] 3.9 g/dL Normal [facility] Comment on above: Performed By: #### C CELINA JENNIE, LIPA #### [facility] [address] [place] [address] Dr. Manuel Sandhu Glucose [Mass/Vol] 109 mg/dL Critically high 74-106 T [facility] Comment on above: Performed By: #### C CELINA JENNIE, LIPA #### [facility] [address] [place] [address] Dr. Manuel Sandhu Potassium [Moles/Vol] 3.4 mmol/L Critically low 3.5-5.1 [facility] Comment on above: Performed By: #### C JENNIE PATRICK LIPA #### [facility] [address] [address] [address] Manuel Sandhu Protein [Mass/Vol] 8.2 g/dL Normal 6.4-8.2 [facility] Comment on above: Performed By: #### C JENNIE PATRICK LIPA #### [facility] [address] [address] [address] Manuel Sandhu Sodium [Moles/Vol] 137 mmol/L Normal 136-145 [facility] Comment on above: Performed By: #### C JENNIE PATRICK LIPA #### [facility] [address] [place] [address] Dr. Manuel Sandhu Urea nitrogen [Mass/Vol] 10.0 mg/dL Normal 7.0-18.0 [facility] Comment on above: Performed By: #### C JENNIE PATRICK LIPA #### [facility] [address] [place] [address] Dr. Manuel Sandhu Urea nitrogen/Creatinine [Mass ratio] 14.1 mg/mg Normal [facility] Comment on above: Performed By: #### C JENNIE PATRICK LIPA #### [facility] [address] [place] [address] Dr. Manuel Sandhu PROTIMEon 08-11-2022 INR Coag (PPP) [Relative time] 0.96 {INR} Normal [facility] Comment on above: Performed By: #### I NFLUAB #### [facility] [address] [place] [address] Dr. Manuel Sandhu INR GUIDELINES SEE BELOW Normal [facility] Comment on above: Result Comment: CHUY RED INR: 2.0 - 3.0 CONDITIONS NOT LISTED BELOW 2.5 - 3.5 FOR PROSTHETIC HEART VALVE REPLACEMENT 2.5 - 3.5 RECURRENT THROMBOSIS Performed By: #### I NFLUAB #### [facility] [address] [place] [address] Dr. Manuel Sandhu PT Coag (PPP) [Time] 10.4 s Normal 9.0-11.6 [facility] Comment on above: Performed By: #### I NFLUAB #### [facility] [address] [place] [address] Dr. Manuel Sandhu PTTon 08-11-2022 aPTT Coag (Bld) [Time] 25.3 s Normal 22.3-36.2 Th [facility] Comment on above: Performed By: #### I NFLUAB #### [facility] [address] [place] [address] Dr. Manuel Sandhu TROPONIN, HIGH SENSITIVITYon 08-11-2022 HSTROP 4.5 pg/mL Normal 4.0-51.3 [facility] Comment on above: Result Comment: CUT- OFF POINTS HAVE BEEN ESTABLISHED BASED ON THE FOURTH UNIVERSAL DEFINITIONS OF MYOCARDIAL INFARCTION. THE UPPER REFERENCE LIMIT (URL) OF TROPONIN, DEFINED THE 99TH PERCENTILE OF cTnI DISTRIBUTION IN A REFERENCE POPULATION, HAS BEEN CONFIRMED THE DECISION THRESHOLD FOR ME DIAGNOSIS. Performed By: #### C JENNIE PATRICK LIPA #### [facility] [address] [place] [address] Dr. Manuel Sandhu TSHon 08-11-2022 TSH 1.778 uIU/mL Normal 0.358-3.740 [facility] Comment on above: Performed By: #### C JENNIE PATRICK LIPA #### [facility] [address] [place] [address] Dr. Manuel Sandhu CHEMISTRYOrdered By: SYSTEM SYSTEM [...] rate/Area] mL/min/1.73 m2 Normal >=59mL/min/1 .73 m2 [facility] Chem S GFR/1.73 sq M.predicted among non-blacks MDRD (S/P/Bld) [Vol rate/Area] mL/min/1.73 m2 Normal >=59mL/min/1 .73 m2 [facility] Chem S Glucose [Mass/Vol] 84 mg/dL Normal 55 - 199 mg/dL [facility] Remisol Potassium [Moles/Vol] 4.2 mmol/L Normal 3.5 - 5.3 mmol/L [facility] Remisol Sodium [Moles/Vol] 137 mmol/L Normal 135 - 145 mmol/L [facility] Remisol Urea nitrogen [Mass/Vol] 13 mg/dL Normal 5 - 21 mg/dL [facility] Remisol Urea nitrogen/Creatinine [Mass ratio] 22 mg/mg High 10 - 20 [facility] Remisol CHEMISTRYOrdered By: Lab ROP User on 08-08-2022 Glucose [Mass/Vol] 98 mg/dL Normal 55 - 99 mg/dL [facility] POC Subsection POC Device SN [id number] Invalid Interpretation Code [facility] POC Subsection POC User ID [id number] Invalid Interpretation Code [facility] POC Subsection POC Username MOLLY RALPH Invalid Interpretation Code [facility] POC Subsection HEMATOLOGYOrdered By: SYSTEM SYSTEM on [...] Detected (08/08/22 9:59 AM) Normal Not Detected [facility] SEROLOGYOrdered By: Kimberli heart on 08-08-2022 Beta hCG Ql Negative (08/08/22 9:51 AM) Normal [facility] URINALYSISOrdered By: Kimberli Briseno on [...] AM) Normal Negative [facility] UA Auto SS [place].plasma/[place] .RBC (Bld) [Mass ratio] 0-3 /HPF Normal [...] [facility] UA Auto SS Urobilinogen Qn (U) [id number] {Lucila'U}/dL Normal 0.0 - 1.0 EU/dL [facility] UA Auto SS WBC Auto Ql (U) Negative (08/08/22 10:01 AM) Normal Negative [facility] UA Auto SS WBC LM.HPF (Urine sed) [#/Area] 0-5 /HPF Normal 0-5/HPF [facility] UA Auto SS CBC AUTO DIFFon 07-19-2022 BASO # 0.1 103/ul Normal 0.0-0.1 [facility] Comment on above: Performed By: #### I NFLUAB #### [facility] [address] [place] [address] Dr. Manuel Sandhu Basophils/100 WBC (Bld) 0.4 % Normal 0.2-2.0 [facility] Comment on above: Performed By: #### I NFLUAB #### [facility] [address] [place] [address] Dr. Manuel Sandhu EO # 0.3 103/ul Normal 0.0-0.7 [facility] Comment on above: Performed By: #### I NFLUAB #### [facility] [address] [place] [address] Dr. Manuel Sandhu Eosinophils/100 WBC (Bld) 2.4 % Normal 0.9-7.0 [facility] Comment on above: Performed By: #### I NFLUAB #### [facility] [address] [place] [address] Dr. Manuel Sandhu Erythrocyte distribution width (RBC) [Ratio] 13.7 % Normal 11.0-15.0 [facility] Comment on above: Performed By: #### I NFLUAB #### [facility] [address] [place] [address] Dr. Manuel Sandhu Hematocrit (Bld) [Volume fraction] 36.5 % Normal 36.0-48.0 [facility] Comment on above: Performed By: #### I NFLUAB #### [facility] [address] [place] [address] Dr. Manuel Sandhu Hemoglobin (Bld) [Mass/Vol] 12.3 g/dL Normal 12.0-16.0 [facility] Comment on above: Performed By: #### I NFLUAB #### [facility] [address] [place] [address] Dr. Manuel Sandhu IG # 0.04 10e3/ul Critically high 0.00-0.03 [facility] Comment on above: Performed By: #### I NFLUAB #### [facility] [address] [place] [address] Dr. Manuel Sandhu IG % 0.3 % Normal 0.0-0.5 [facility] Comment on above: Performed By: #### I NFLUAB #### [facility] [address] [place] [address] Dr. Manuel Sandhu LYMPH # 2.6 103/ul Normal 1.2-3.8 [facility] Comment on above: Performed By: #### I NFLUAB #### [facility] [address] [place] [address] Dr. Manuel Sandhu Lymphocytes/100 WBC (Bld) 22.3 % Normal 20.5-60.0 [facility] Comment on above: Performed By: #### I NFLUAB #### [facility] [address] [place] [address] Dr. Manuel Sandhu MANUAL DIFF REQ NO Normal [facility] Comment on above: Performed By: #### I NFLUAB #### [facility] [address] [place] [address] Dr. Manuel Sandhu MCH (RBC) [Entitic mass] 32.5 pg Normal 26.7-34.0 [facility] Comment on above: Performed By: #### I NFLUAB #### [facility] [address] [place] [address] Dr. Manuel Sandhu MCHC (RBC) [Mass/Vol] 33.7 g/dL Normal 29.9-35.2 [facility] Comment on above: Performed By: #### I NFLUAB #### [facility] [address] [place] [address] Dr. Manuel Sandhu MCV (RBC) [Entitic vol] 96.6 fL Normal 81.0-99.0 [facility] Comment on above: Performed By: #### I NFLUAB #### [facility] [address] [place] [address] Dr. Manuel Sandhu MONO # 0.6 103/ul Normal 0.3-0.8 [facility] Comment on above: Performed By: #### I NFLUAB #### [facility] [address] [place] [address] Dr. Manuel Sandhu Monocytes/100 WBC (Bld) 5.2 % Normal 1.7-12.0 [facility] Comment on above: Performed By: #### I NFLUAB #### [facility] [address] [place] [address] Dr. Manuel Sandhu NEUT # 8.2 103/ul Critically high 1.4-6.5 [facility] Comment on above: Performed By: #### I NFLUAB #### [facility] [address] [place] [address] Dr. Manuel Sandhu Neutrophils/100 WBC (Bld) 69.4 % Normal 43.0-75.0 [facility] Comment on above: Performed By: #### I NFLUAB #### [facility] [address] [place] [address] Dr. Manuel Sandhu Platelet mean volume (Bld) [Entitic vol] 11.2 fL Normal 9.5-13.5 [facility] Comment on above: Performed By: #### I NFLUAB #### [facility] [address] [place] [address] Dr. Manuel Sandhu PLT 308 103/ul Normal 150-450 [facility] Comment on above: Performed By: #### I NFLUAB #### [facility] [address] [place] [address] Dr. Manuel Sandhu RBC 3.78 106/ul Critically low 4.20-5.40 [facility] Comment on above: Performed By: #### I NFLUAB #### [facility] [address] [place] [address] Dr. Manuel Sandhu WBC 11.8 103/ul Critically high 4.0-11.0 [facility] Comment on above: Performed By: #### I NFLUAB #### [facility] [address] [place] [address] Dr. Manuel Sandhu D-DIMERon 07-19-2022 D-DIMER 0.29 mg/L FEU Normal <=0.59 [facility] Comment on above: Performed By: #### U MICRO, ERUR #### [facility] [address] [place] [address] Dr. Manuel Sandhu D-DIMER COMMENTS SEE BELOW Normal [facility] Comment on above: Result Comment: Incr [...] #### U MICRO, ERUR #### [facility] [address] [place] [address] Dr. Manuel Sandhu LIPASEon 07-19-2022 Lipase [Catalytic activity/Vol] 119.0 U/L Normal 73.0-393.0 [facility] Comment on above: Performed By: #### C JENNIE PATRICK LIPA #### [facility] [address] [place] [address] Dr. Manuel Sandhu PROF 14(COMP METB)on 022 Albumin [Mass/Vol] 3.5 g/dL Normal 3.4-5.0 [facility] Comment on above: Performed By: #### C JENNIE PATRICK LIPA #### [facility] [address] [place] [address] Dr. Manuel Sandhu Albumin/Globulin [Mass ratio] 1.0 {ratio} Normal [facility] Comment on above: Performed By: #### C CELINA JENNIE LIPA #### [facility] [address] [address] [address] Manuel Sandhu ALP [Catalytic activity/Vol] 65 U/L Normal 46-116 [facility] Comment on above: Performed By: #### C MP JENNIE, LIPA #### [facility] [address] [address] [address] Manuel Sandhu ALT [Catalytic activity/Vol] 33 U/L Normal 14-59 [facility] Comment on above: Performed By: #### C CELINA JENNIE, LIPA #### [facility] [address] [place] [address] Dr. Manuel Sandhu Anion gap [Moles/Vol] 10.8 mmol/L Normal [facility] Comment on above: Performed By: #### C CELINA JENNIE, LIPA #### [facility] [address] [place] [address] Dr. Manuel Sandhu AST [Catalytic activity/Vol] 20 U/L Normal 15-37 [facility] Comment on above: Performed By: #### C CELINA JENNIE, LIPA #### [facility] [address] [place] [address] Dr. Manuel Sandhu Bilirubin [Mass/Vol] 0.1 mg/dL Critically low 0.2-1.0 [facility] Comment on above: Performed By: #### C MP JENNIE, LIPA #### [facility] [address] [place] [address] Dr. Manuel Sandhu Calcium [Mass/Vol] 8.7 mg/dL Normal 8.5-10.1 [facility] Comment on above: Performed By: #### C MP JENNIE, LIPA #### [facility] [address] [place] [address] Dr. Manuel Sandhu Chloride [Moles/Vol] 105 mmol/L Normal 98-107 [facility] Comment on above: Performed By: #### C MP, JENNIE, LIPA #### [facility] [address] [address] [address] Manuel Sandhu CO2 [Moles/Vol] 24.4 mmol/L Normal 21.0-32.0 [facility] Comment on above: Performed By: #### C MP, JENNIE, LIPA #### [facility] [address] [address] [address] Manuel Sandhu Creatinine [Mass/Vol] 0.91 mg/dL Normal 0.55-1.02 [facility] Comment on above: Performed By: #### C MP, JENNIE, LIPA #### [facility] [address] [address] [address] Manuel Sandhu EGFR-AF MEXICAN >60 Normal >=60 [facility] Comment on above: Performed By: #### C MP, JENNIE, LIPA #### [facility] [address] [address] [address] Manuel Sandhu EGFR-NON AF MEXICAN >60 Normal >=60 [facility] Comment on above: Performed By: #### C MP, JENNIE, LIPA #### [facility] [address] [address] [address] Manuel Sandhu Globulin (S) [Mass/Vol] 3.4 g/dL Normal [facility] Comment on above: Performed By: #### C MP, JENNIE, LIPA #### [facility] [address] [address] [address] Manuel Sandhu Glucose [Mass/Vol] 127 mg/dL Critically high 74-106 T [facility] Comment on above: Performed By: #### C MP, JENNIE, LIPA #### [facility] [address] [address] [address] Manuel Sandhu Potassium [Moles/Vol] 3.2 mmol/L Critically low 3.5-5.1 [facility] Comment on above: Performed By: #### C MP, JENNIE, LIPA #### [facility] [address] [address] [address] Manuel Sandhu Protein [Mass/Vol] 6.9 g/dL Normal 6.4-8.2 [facility] Comment on above: Performed By: #### C MP, JENNIE, LIPA #### [facility] [address] [address] [address] Manuel Sandhu Sodium [Moles/Vol] 137 mmol/L Normal 136-145 [facility] Comment on above: Performed By: #### C JENNIE PATRICK LIPA #### [facility] [address] [place] [address] Dr. Manuel Sandhu Urea nitrogen [Mass/Vol] 13.0 mg/dL Normal 7.0-18.0 [facility] Comment on above: Performed By: #### C JENNIE PATRICK LIPA #### [facility] [address] [place] [address] Dr. Manuel Sandhu Urea nitrogen/Creatinine [Mass ratio] 14.3 mg/mg Normal [facility] Comment on above: Performed By: #### C JENNIE PATRICK LIPA #### [facility] [address] [place] [address] Dr. Manuel Sandhu PROTIMEon 07-19-2022 INR Coag (PPP) [Relative time] 0.97 {INR} Normal [facility] Comment on above: Performed By: #### P TT, PT #### [facility] [address] [place] [address] Dr. Manuel Sandhu INR GUIDELINES SEE BELOW Normal [facility] Comment on above: Result Comment: CHUY RED INR: 2.0 - 3.0 CONDITIONS NOT LISTED BELOW 2.5 - 3.5 FOR PROSTHETIC HEART VALVE REPLACEMENT 2.5 - 3.5 RECURRENT THROMBOSIS Performed By: #### P TT, PT #### [facility] [address] [place] [address] Dr. Manuel Sandhu PT Coag (PPP) [Time] 10.5 s Normal 9.0-11.6 [facility] Comment on above: Performed By: #### P TT, PT #### [facility] [address] [place] [address] Dr. Manuel Sandhu PTTon 07-19-2022 aPTT Coag (Bld) [Time] 26.1 s Normal 22.3-36.2 [facility] Comment on above: Performed By: #### P TT, PT #### [facility] [address] [place] [address] Dr. Manuel Sandhu TROPONIN, HIGH SENSITIVITYon 07-19-2022 HSTROP 5.4 pg/mL Normal 4.0-51.3 [facility] Comment on above: Result Comment: CUT- OFF POINTS HAVE BEEN ESTABLISHED BASED ON THE FOURTH UNIVERSAL DEFINITIONS OF MYOCARDIAL INFARCTION. THE UPPER REFERENCE LIMIT (URL) OF TROPONIN, DEFINED THE 99TH PERCENTILE OF cTnI DISTRIBUTION IN A REFERENCE POPULATION, HAS BEEN CONFIRMED THE DECISION THRESHOLD FOR ME DIAGNOSIS. Performed By: #### U MICRO, ERUR #### [facility] [address] [address] [address] Manuel Sandhu HSTROP 5.1 pg/mL Normal 4.0-51.3 [facility] Comment on above: Result Comment: CUT- OFF POINTS HAVE BEEN ESTABLISHED BASED ON THE FOURTH UNIVERSAL DEFINITIONS OF MYOCARDIAL INFARCTION. THE UPPER REFERENCE LIMIT (URL) OF TROPONIN, DEFINED THE 99TH PERCENTILE OF cTnI DISTRIBUTION IN A REFERENCE POPULATION, HAS BEEN CONFIRMED THE DECISION THRESHOLD FOR ME DIAGNOSIS. Performed By: #### C CELINA, JENNIE, MARCELL #### [facility] [address] [address] [address] Manuel Sandhu XR CHEST 1 Von [...] Date: 2022-07-19 19:28 Normal [facility] Covid-19 PCR (CVDTBH)on 05-16 SARS-CoV-2 (COVID-19) RNA JOSÉ MIGUEL+probe Ql (Unsp spec) Not detected Normal NOT DETECTED [facility] Comment on above: Result Comment: When [...] for this test is supported by the [place] of Health and Human Service's declaration that [...] C JENNIE PATRICK LIPA #### [facility] [address] [address] [address] Manuel Sandhu XR CHEST 2 Von [...] Date: 2022-06-12 10:12 Normal [facility] Covid-19 PCR (CVDTB)on 05-15 SARS-CoV-2 (COVID-19) RNA JOSÉ MIGUEL+probe Ql (Unsp spec) Not detected Normal NOT DETECTED [facility] Comment on above: Result Comment: When [...] this test is supported by the [employer] of Health and Human Service's declaration that [...] By: #### I NFLUAB #### [facility] [address] [place] [address] Dr. Manuel Sandhu CHEMISTRYOrdered By: SYSTEM SYSTEM [...] 312.0 E9/L Normal 150.0 - 500.0 E9/L [facility] HemeAutoSS RBC (Bld) [#/Vol] 4.1 E12/L Low 4.3 - 5.9 E12/L [facility] HemeAutoSS WBC corrected for nucl RBC Auto (Bld) [#/Vol] 13.1 E9/L High 4.0 - 11.0 E9/L [facility] HemeAutoSS Covid-19 PCR (CVDTB)on 03-15 SARS-CoV-2 (COVID-19) RNA JOSÉ MIGUEL+probe Ql (Unsp spec) Detected Critically abnormal NOT DETECTED [facility] Comment on above: Result Comment: This test is not yet approved or cleared by the [place] FDA. When there are no FDA-approved or cleared tests available, and other criteria are met, FDA can make tests available under an emergency access mechanism called an Emergency Use Authorization (EUA). The EUA for this test is supported by the [place] of Health and Human Service's declaration that [...] C JENNIE PATRICK LIPA #### [facility] [address] [place] [address] Dr. Manuel Sandhu GROUP A STREP CULTUREon 03-15 S. pyogenes Ag Ql (Unsp spec) Culture Observations: NEGATIVE FOR GROUP A STREPTOCOCCUS. Normal [facility] Comment on above: Performed By: #### U MICRO, ERUR #### [facility] [address] [address] [address] Manuel Sandhu INFLUENZA A AND B AGon 04-07 INFLUENZA A AG Negative Normal NEGATIVE SEE COMMENT [facility] Comment on above: Performed By: #### I NFLUAB #### [facility] [address] [place] [address] Dr. Manuel Sandhu INFLUENZA B AG Negative Normal NEGATIVE SEE COMMENT [facility] Comment on above: Performed By: #### I NFLUAB #### [facility] [address] [address] [address] Manuel Sandhu INTERNAL CONTROLS Within Normal Limits Normal Wi thin Normal Limits [facility] Comment on above: Performed By: #### I NFLUAB #### [facility] [address] [place], [place] [address] Dr. Manuel Sandhu STREPT SCREENon 04-07-2022 STREP SCREEN A Negative Normal NEGATIVE The [facility] Comment on above: Performed By: #### U MICRO, ERUR #### [facility] [id number] Manuel Sandhu CHEMISTRYOrdered By: SYSTEM SYSTEM [...] PM) Normal Negative [facility] UA Auto SS [place].plasma/[place] .RBC (Bld) [Mass ratio] 0-3 /HPF Normal 0-3/HPF [facility] UA Auto SS Nitrite Ql (U) Negative (04/03/22 6:51 PM) Normal Negative [facility] UA Auto SS pH (U) 5.0 *NA* (04/03/22 6:51 PM) Invalid Interpretation Code 5.0 - 9.0 [facility] UA Auto SS Protein (U) [Mass/Vol] Negative (04/03/22 6:51 PM) Normal Negative [facility] UA Auto SS Specific gravity (U) [Rel density] 1.010 *NA* (04/03/22 6:51 PM) Invalid Interpretation Code 1.005 - 1.030 [facility] UA Auto SS UA Spec Desc Clean Catch (04/03/22 6:51 PM) Normal [facility] UA Auto SS Urobilinogen Qn (U) [id number] {Lucila'U}/dL Normal 0.0 - 1.0 EU/dL [facility] UA Auto SS WBC Auto Ql (U) Negative (04/03/22 6:51 PM) Normal Negative [facility] UA Auto SS WBC LM.HPF (Urine sed) [#/Area] 0-5 /HPF Normal 0-5/HPF [facility] UA Auto SS GROUP A STREP CULTUREon 01-13 S. pyogenes Ag Ql (Unsp spec) Culture Observations: NEGATIVE FOR GROUP A STREPTOCOCCUS. Normal [facility] Comment on above: Performed By: #### I NFLUAB #### [facility] [address] [place] [address] Dr. Manuel Sandhu STREPT SCREENon 02-08-2022 STREP SCREEN A Negative Normal NEGATIVE [facility] Comment on above: Performed By: #### I NFLUAB #### [facility] [address] [address] [address] Manuel Sandhu CBC AUTO DIFFon 01-30-2022 BASO # 0.1 103/ul Normal 0.0-0.1 [facility] Comment on above: Performed By: #### C BC #### [facility] [address] [place] [address] Dr. Manuel Sandhu Basophils/100 WBC (Bld) 0.4 % Normal 0.2-2.0 [facility] Comment on above: Performed By: #### C BC #### [facility] [address] [place] [address] Dr. Manuel Sandhu EO # 0.4 103/ul Normal 0.0-0.7 [facility] Comment on above: Performed By: #### C BC #### [facility] [address] [place] [address] Dr. Manuel Sandhu Eosinophils/100 WBC (Bld) 3.0 % Normal 0.9-7.0 [facility] Comment on above: Performed By: #### C BC #### [facility] [address] [place] [address] Dr. Manuel Sandhu Erythrocyte distribution width (RBC) [Ratio] 13.3 % Normal 11.0-15.0 [facility] Comment on above: Performed By: #### C BC #### [facility] [address] [place] [address] Dr. Mnauel Sandhu Hematocrit (Bld) [Volume fraction] 36.8 % Normal 36.0-48.0 [facility] Comment on above: Performed By: #### C BC #### [facility] [address] [place] [address] Dr. Manuel Sandhu Hemoglobin (Bld) [Mass/Vol] 12.2 g/dL Normal 12.0-16.0 [facility] Comment on above: Performed By: #### C BC #### [facility] [address] [place] [address] Dr. Manuel Sandhu IG # 0.04 10e3/ul Critically high 0.00-0.03 [facility] Comment on above: Performed By: #### C BC #### [facility] [address] [place] [address] Dr. Manuel Sandhu IG % 0.3 % Normal 0.0-0.5 [facility] Comment on above: Performed By: #### C BC #### [facility] [address] [place] [address] Dr. Manuel Sandhu LYMPH # 2.8 103/ul Normal 1.2-3.8 [facility] Comment on above: Performed By: #### C BC #### [facility] [address] [place] [address] Dr. Manuel Sandhu Lymphocytes/100 WBC (Bld) 23.0 % Normal 20.5-60.0 [facility] Comment on above: Performed By: #### C BC #### [facility] [address] [place] [address] Dr. Manuel Sandhu MANUAL DIFF REQ NO Normal [facility] Comment on above: Performed By: #### C BC #### [facility] [address] [place] [address] Dr. Manuel Sandhu MCH (RBC) [Entitic mass] 32.1 pg Normal 26.7-34.0 [facility] Comment on above: Performed By: #### C BC #### [facility] [address] [place] [address] Dr. Manuel aSndhu MCHC (RBC) [Mass/Vol] 33.2 g/dL Normal 29.9-35.2 [facility] Comment on above: Performed By: #### C BC #### [facility] [address] [place] [address] Dr. Manuel Sandhu MCV (RBC) [Entitic vol] 96.8 fL Normal 81.0-99.0 [facility] Comment on above: Performed By: #### C BC #### [facility] [address] [place] [address] Dr. Manuel Sandhu MONO # 0.7 103/ul Normal 0.3-0.8 [facility] Comment on above: Performed By: #### C BC #### [facility] [address] [place] [address] Dr. Manuel Sandhu Monocytes/100 WBC (Bld) 5.6 % Normal 1.7-12.0 [facility] Comment on above: Performed By: #### C BC #### [facility] [address] [place] [address] Dr. Manuel Sandhu NEUT # 8.2 103/ul Critically high 1.4-6.5 [facility] Comment on above: Performed By: #### C BC #### [facility] [address] [place] [address] Dr. Manuel Sandhu Neutrophils/100 WBC (Bld) 67.7 % Normal 43.0-75.0 [facility] Comment on above: Performed By: #### C BC #### [facility] [address] [place], [place] [address] Dr. Manuel Sandhu Platelet mean volume (Bld) [Entitic vol] 11.2 fL Normal 9.5-13.5 [facility] Comment on above: Performed By: #### C BC #### [facility] [address] [address] [address] Manuel Sandhu PLT 312 103/ul Normal 150-450 [facility] Comment on above: Performed By: #### C BC #### [facility] [address] [address] [address] Manuel Sandhu RBC 3.80 106/ul Critically low 4.20-5.40 [facility] Comment on above: Performed By: #### C BC #### [facility] [address] [address] [address] Manuel Sandhu WBC 12.1 103/ul Critically high 4.0-11.0 [facility] Comment on above: Performed By: #### C BC #### [facility] [address] [place], [place] [address] Dr. Manuel Sandhu Covid-19 PCR ([facility])on 01-12 SARS-CoV-2 (COVID-19) RNA JOSÉ MIGUEL+probe Ql (Unsp spec) Not detected Normal NOT DETECTED [facility] Comment on above: Result Comment: This test is not yet approved or cleared by the [place] FDA. When there are no FDA-approved or cleared tests available, and other criteria are met, FDA can make tests available under an emergency access mechanism called an Emergency Use Authorization (EUA). The EUA for this test is supported by the [place] of Health and Human Service's (HHS's) declaration [...] By: #### C VDTBH #### [facility] [address] [place] [address] Dr. Manuel Sandhu DRUG SCREEN RAPID (URINE)on 01-30-2022 AMP Negative Normal NEGATIVE [facility] Comment on above: Performed By: #### U MICRO, ERUR #### [facility] [address] [place] [address] Dr. Manuel Sandhu BAR Negative Normal NEGATIVE [facility] Comment on above: Performed By: #### U MICRO, ERUR #### [facility] [address] [place] [address] Dr. Manuel Sandhu BUP Negative Normal NEGATIVE [facility] Comment on above: Performed By: #### U MICRO, ERUR #### [facility] [address] [place] [address] Dr. Manuel Sandhu BZO Negative Normal NEGATIVE [facility] Comment on above: Performed By: #### U MICRO, ERUR #### [facility] [address] [address] [address] Manuel Sandhu WISAM Negative Normal NEGATIVE [facility] Comment on above: Performed By: #### U MICRO, ERUR #### [facility] [address] [place] [address] Dr. Manuel Sandhu CUT-OFFS SEE BELOW Normal [facility] Comment on above: Result Comment: [...] #### U MICRO, ERUR #### [facility] [address] [address] [address] Manuel Sandhu DRUG CUT HEADER DRUG CLASS TEST SYST EM CUT-OFF CONCENTRATIONS ARE FOLLOWS: Normal [facility] Comment on above: Performed By: #### U MICRO, ERUR #### [facility] [address] [place] [address] Dr. Manuel Sandhu mAMP Negative Normal NEGATIVE [facility] Comment on above: Performed By: #### U MICRO, ERUR #### [facility] [address] [address] [address] Manuel Sandhu MTD Negative Normal NEGATIVE [facility] Comment on above: Performed By: #### U MICRO, ERUR #### [facility] [address] [place] [address] Dr. Manuel Sandhu OPI Negative Normal NEGATIVE [facility] Comment on above: Performed By: #### U MICRO, ERUR #### [facility] [address] [address] [address] Manuel Sandhu OXY Negative Normal NEGATIVE [facility] Comment on above: Performed By: #### U MICRO, ERUR #### [facility] [address] [address] [address] Manuel Sandhu PCP Negative Normal NEGATIVE [facility] Comment on above: Performed By: #### U MICRO, ERUR #### [facility] [address] [address] [address] Manuel Sandhu PPX Negative Normal NEGATIVE [facility] Comment on above: Performed By: #### U MICRO, ERUR #### [facility] [address] [address] [address] Manuel Sandhu TCA Negative Normal NEGATIVE [facility] Comment on above: Performed By: #### U MICRO, ERUR #### [facility] [address] [place] [address] Dr. Manuel Sandhu THC Negative Normal NEGATIVE [facility] Comment on above: Performed By: #### U MICRO, ERUR #### [facility] [address] [address] [address] Manuel Sandhu ER URINE PROFILEon 2 Bilirubin Ql (U) Negative Normal NEGATIVE [facility] Comment on above: Performed By: #### U MICRO, ERUR #### [facility] [address] [address] [address] Manuel Sandhu Clarity (U) CLEAR Normal CLEAR [facility] Comment on above: Performed By: #### U MICRO, ERUR #### [facility] [address] [address] [address] Manuel Sandhu Color (U) LT. YELLOW Normal YELLOW [facility] Comment on above: Performed By: #### U MICRO, ERUR #### [facility] [address] [place] [address] Dr. Manuel DE DIOSD A micrscopic examination will be performed if indicated. Normal [facility] Comment on above: Performed By: #### U MICRO, ERUR #### [facility] [address] [place] [address] Dr. Manuel Sandhu Glucose Ql (U) Negative Normal NEGATIVE [facility] Comment on above: Performed By: #### U MICRO, ERUR #### [facility] [address] [place] [address] Dr. Manuel Sandhu Hemoglobin Ql (U) Negative Normal NEGATIVE [facility] Comment on above: Performed By: #### U MICRO, ERUR #### [facility] [address] [place] [address] Dr. Manuel Sandhu Ketones Ql (U) Negative Normal NEGATIVE [facility] Comment on above: Performed By: #### U MICRO, ERUR #### [facility] [address] [place] [address] Dr. Manuel Sandhu LEUKOCYTES Negative Normal NEGATIVE [facility] Comment on above: Performed By: #### U MICRO, ERUR #### [facility] [address] [place] [address] Dr. Manuel Sandhu Nitrite Ql (U) Negative Normal NEGATIVE [facility] Comment on above: Performed By: #### U MICRO, ERUR #### [facility] [address] [place] [address] Dr. Manuel Sandhu pH (U) 5.5 [pH] Normal 5-9 [facility] Comment on above: Performed By: #### U MICRO, ERUR #### [facility] [address] [place] [address] Dr. Manuel Sandhu SPEC GRAVITY <=1.005 Abnormal 1.005-<=1.02 5 [facility] Comment on above: Performed By: #### U MICRO, ERUR #### [facility] [address] [place] [address] Dr. Manuel Sandhu UA PROTEIN Negative Normal NEGATIVE/ TRACE [facility] Comment on above: Performed By: #### U MICRO, ERUR #### [facility] [address] [place] [address] Dr. Manuel Sandhu UR MICRO IND NOT INDICATED Normal [facility] Comment on above: Performed By: #### U MICRO, ERUR #### [facility] [address] [place] [address] Dr. Manuel Sandhu Urobilinogen Qn (U) 0.2 {Lucila'U}/dL Normal 0.2 - 1. 0 [facility] Comment on above: Performed By: #### U MICRO, ERUR #### [facility] [address] [place] [address] Dr. Manuel Sandhu ETHANOL (BLD ALC)on 01-31-20 22 ALC NOTE NOTE: 80 mg/dl is th e legal limit for a blood alcohol level Normal [facility] Comment on above: Performed By: #### I NFLUAB #### [facility] [address] [place] [address] Dr. Manuel Sandhu Ethanol [Mass/Vol] 47 mg/dL Normal [facility] Comment on above: Performed By: #### I NFLUAB #### [facility] [address] [place] [address] Dr. Manuel Sandhu PREG HCG QUALon 01-30-2022 , QUAL Negative Normal NEGATIVE [facility] Comment on above: Performed By: #### U MICRO, ERUR #### [facility] [address] [place] [address] Dr. Manuel Sandhu PROF 14(COMP METB)on 022 Albumin [Mass/Vol] 3.8 g/dL Normal 3.4-5.0 [facility] Comment on above: Performed By: #### I NFLUAB #### [facility] [address] [address] [address] Manuel Sandhu Albumin/Globulin [Mass ratio] 1.1 {ratio} Normal [facility] Comment on above: Performed By: #### I NFLUAB #### [facility] [address] [address] [address] Manuel Sandhu ALP [Catalytic activity/Vol] 88 U/L Normal 46-116 [facility] Comment on above: Performed By: #### I NFLUAB #### [facility] [address] [address] [address] Manuel Sandhu ALT [Catalytic activity/Vol] 30 U/L Normal 14-59 [facility] Comment on above: Performed By: #### I NFLUAB #### [facility] [address] [address] [address] Manuel Sandhu Anion gap [Moles/Vol] 17.3 mmol/L Normal [facility] Comment on above: Performed By: #### I NFLUAB #### [facility] [address] [address] [address] Manuel Sandhu AST [Catalytic activity/Vol] 17 U/L Normal 15-37 [facility] Comment on above: Performed By: #### I NFLUAB #### [facility] [address] [address] [address] Manuel Sandhu Bilirubin [Mass/Vol] 0.2 mg/dL Normal 0.2-1.0 [facility] Comment on above: Performed By: #### I NFLUAB #### [facility] [address] [address] [address] Manuel Sandhu Calcium [Mass/Vol] 8.9 mg/dL Normal 8.5-10.1 [facility] Comment on above: Performed By: #### I NFLUAB #### [facility] [address] [address] [address] Manuel Sandhu Chloride [Moles/Vol] 109 mmol/L Critically high 98-107 [facility] Comment on above: Performed By: #### I NFLUAB #### [facility] [address] [address] [address] Manuel Sandhu CO2 [Moles/Vol] 20.2 mmol/L Critically low 21.0-32.0 [facility] Comment on above: Performed By: #### I NFLUAB #### [facility] [address] [address] [address] Manuel Sandhu Creatinine [Mass/Vol] 0.69 mg/dL Normal 0.55-1.02 [facility] Comment on above: Performed By: #### I NFLUAB #### [facility] [address] [place] [address] Dr. Manuel Sandhu EGFR-AF MEXICAN >60 Normal >=60 [facility] Comment on above: Performed By: #### I NFLUAB #### [facility] [address] [address] [address] Manuel Sandhu EGFR-NON AF MEXICAN >60 Normal >=60 [facility] Comment on above: Performed By: #### I NFLUAB #### [facility] [address] [place] [address] Dr. Manuel Sandhu Globulin (S) [Mass/Vol] 3.6 g/dL Normal [facility] Comment on above: Performed By: #### I NFLUAB #### [facility] [address] [address] [address] Manuel Sandhu Glucose [Mass/Vol] 79 mg/dL Normal 74-106 [facility] Comment on above: Performed By: #### I NFLUAB #### [facility] [address] [address] [address] Manuel Sandhu Potassium [Moles/Vol] 3.5 mmol/L Normal 3.5-5.1 [facility] Comment on above: Performed By: #### I NFLUAB #### [facility] [address] [address] [address] Manuel Sandhu Protein [Mass/Vol] 7.4 g/dL Normal 6.4-8.2 [facility] Comment on above: Performed By: #### I NFLUAB #### [facility] [address] [place] [address] Dr. Manuel Sandhu Sodium [Moles/Vol] 143 mmol/L Normal 136-145 [facility] Comment on above: Performed By: #### I NFLUAB #### [facility] [address] [place] [address] Dr. Manuel Sandhu Urea nitrogen [Mass/Vol] 18.0 mg/dL Normal 7.0-18.0 [facility] Comment on above: Performed By: #### I NFLUAB #### [facility] [address] [place] [address] Dr. Manule Sandhu Urea nitrogen/Creatinine [Mass ratio] 26.1 mg/mg Normal [facility] Comment on above: Performed By: #### I NFLUAB #### [facility] [address] [place] [address] Dr. Manuel Sandhu AMYLASEon 11-16-2021 Amylase [Catalytic activity/Vol] 60 U/L Normal 31-110 [facility] Comment on above: Performed By: #### C MP, JENNIE, LIPA #### [facility] [address] [place] [address] Dr. Manuel Sandhu CBC AUTO DIFFon 11-16-2021 BASO # 0.1 103/ul Normal 0.0-0.1 [facility] Comment on above: Performed By: #### C MP, JENNIE, LIPA #### [facility] [address] [place] [address] Dr. Manuel Sandhu Basophils/100 WBC (Bld) 0.5 % Normal 0.2-2.0 [facility] Comment on above: Performed By: #### C MP, JENNIE, LIPA #### [facility] [address] [place] [address] Dr. Manuel Sandhu EO # 0.3 103/ul Normal 0.0-0.7 [facility] Comment on above: Performed By: #### C JENNIE PATRICK LIPA #### [facility] [address] [place] [address] Dr. Manuel Sandhu Eosinophils/100 WBC (Bld) 3.1 % Normal 0.9-7.0 [facility] Comment on above: Performed By: #### C JENNIE PATRICK LIPA #### [facility] [address] [place] [address] Dr. Manuel Sandhu Erythrocyte distribution width (RBC) [Ratio] 13.4 % Normal 11.0-15.0 [facility] Comment on above: Performed By: #### C JENNIE PATRICK LIPA #### [facility] [address] [place] [address] Dr. Manuel Sandhu Hematocrit (Bld) [Volume fraction] 39.0 % Normal 36.0-48.0 [facility] Comment on above: Performed By: #### C JENNIE PATRICK LIPA #### [facility] [address] [place] [address] Dr. Manuel Sandhu Hemoglobin (Bld) [Mass/Vol] 12.8 g/dL Normal 12.0-16.0 [facility] Comment on above: Performed By: #### C JENNIE PATRICK LIPA #### [facility] [address] [place] [address] Dr. Manuel Sandhu IG # 0.03 10e3/ul Normal 0.00-0.03 [facility] Comment on above: Performed By: #### C JENNIE PATRICK LIPA #### [facility] [address] [place] [address] Dr. Manuel Sandhu IG % 0.3 % Normal 0.0-0.5 [facility] Comment on above: Performed By: #### C JENNIE PATRICK LIPA #### [facility] [address] [place] [address] Dr. Manuel Sandhu LYMPH # 2.8 103/ul Normal 1.2-3.8 [facility] Comment on above: Performed By: #### C JENNIE PATRICK LIPA #### [facility] [address] [place] [address] Dr. Manuel Sandhu Lymphocytes/100 WBC (Bld) 29.9 % Normal 20.5-60.0 [facility] Comment on above: Performed By: #### C JENNIE PATRICK, LIPA #### [facility] [address] [address] [address] Manuel Sandhu MANUAL DIFF REQ NO Normal [facility] Comment on above: Performed By: #### C CELINA JENNIE, LIPA #### [facility] [address] [address] [address] Maunel Sandhu MCH (RBC) [Entitic mass] 32.2 pg Normal 26.7-34.0 [facility] Comment on above: Performed By: #### C JENNIE PATRICK, LIPA #### [facility] [address] [place] [address] Dr. Manuel Sandhu MCHC (RBC) [Mass/Vol] 32.8 g/dL Normal 29.9-35.2 [facility] Comment on above: Performed By: #### C CELINA JENNIE, LIPA #### [facility] [address] [address] [address] Manuel Sandhu MCV (RBC) [Entitic vol] 98.0 fL Normal 81.0-99.0 [facility] Comment on above: Performed By: #### C CELINA JENNIE, LIPA #### [facility] [address] [place] [address] Dr. Manuel Sandhu MONO # 0.7 103/ul Normal 0.3-0.8 [facility] Comment on above: Performed By: #### C CELINA JENNIE, LIPA #### [facility] [address] [place] [address] Dr. Manuel Sandhu Monocytes/100 WBC (Bld) 7.7 % Normal 1.7-12.0 [facility] [facility] Comment on above: Performed By: #### C MP, JENNIE, LIPA #### [facility] [address] [place] [address] Dr. Manuel Sandhu NEUT # 5.5 103/ul Normal 1.4-6.5 [facility] Comment on above: Performed By: #### C MP, JENNIE, LIPA #### [facility] [address] [address] [address] Manuel Sandhu Neutrophils/100 WBC (Bld) 58.5 % Normal 43.0-75.0 [facility] Comment on above: Performed By: #### C MP, JENNIE, LIPA #### [facility] [address] [place] [address] Dr. Manuel Sandhu Platelet mean volume (Bld) [Entitic vol] 11.7 fL Normal 9.5-13.5 [facility] Comment on above: Performed By: #### C MP JENNIE, LIPA #### [facility] [address] [place] [address] Dr. Manuel Sandhu PLT 301 103/ul Normal 150-450 [facility] Comment on above: Performed By: #### C MP JENNIE, LIPA #### [facility] [address] [place] [address] Dr. Manuel Sandhu RBC 3.98 106/ul Critically low 4.20-5.40 [facility] Comment on above: Performed By: #### C MP JENNIE, LIPA #### [facility] [address] [place] [address] Dr. Manuel Sandhu WBC 9.3 103/ul Normal 4.0-11.0 [facility] Comment on above: Performed By: #### C CELINA JENNIE, LIPA #### [facility] [address] [place] [address] ABD/PELVIS WO CONon [...] Date: 2021-11-16 19:55 Normal [facility] ER URINE PROFILEon 2 Bilirubin Ql (U) Negative Normal NEGATIVE [facility] Comment on above: Performed By: #### C MP, JENNIE, LIPA #### [facility] [address] [address] [address] Manuel Sandhu Clarity (U) CLEAR Normal CLEAR [facility] Comment on above: Performed By: #### C MP, JENNIE, LIPA #### [facility] [address] [place] [address] Dr. Manuel Sandhu Color (U) LT. YELLOW Normal YELLOW [facility] Comment on above: Performed By: #### C MP, JENNIE, LIPA #### [facility] [address] [place] [address] Dr. Manuel CUNHA A micrscopic examination will be performed if indicated. Normal [facility] Comment on above: Performed By: #### C MP, JENNIE, LIPA #### [facility] [address] [place] [address] Dr. Manuel Sandhu Glucose Ql (U) Negative Normal NEGATIVE [facility] Comment on above: Performed By: #### C MP, JENNIE, LIPA #### [facility] [address] [place] [address] Dr. Manuel Sandhu Hemoglobin Ql (U) Negative Normal NEGATIVE [facility] Comment on above: Performed By: #### C MP, JENNIE, LIPA #### [facility] [address] [place] [address] Dr. Manuel Sandhu Ketones Ql (U) Negative Normal NEGATIVE [facility] Comment on above: Performed By: #### C MP, JENNIE, LIPA #### [facility] [address] [place] [address] Dr. Manuel Sandhu LEUKOCYTES Negative Normal NEGATIVE [facility] Comment on above: Performed By: #### C MP, JENNIE, LIPA #### [facility] [address] [place] [address] Dr. Manuel Sandhu Nitrite Ql (U) Negative Normal NEGATIVE [facility] Comment on above: Performed By: #### C MP, JENNIE, LIPA #### [facility] [address] [place] [address] Dr. Manuel Sandhu pH (U) 7.0 [pH] Normal 5-9 [facility] Comment on above: Performed By: #### C MP, JENNIE, LIPA #### [facility] [address] [place] [address] Dr. Manuel Sandhu SPEC GRAVITY <=1.005 Abnormal 1.005-<=1.02 5 [facility] Comment on above: Performed By: #### C MP, JENNIE, LIPA #### [facility] [address] [place] [address] Dr. Manuel Sandhu UA PROTEIN Negative Normal NEGATIVE/ TRACE [facility] Comment on above: Performed By: #### C MP, JENNIE, LIPA #### [facility] [address] [place] [address] Dr. Manuel Sandhu UR MICRO IND NOT INDICATED Normal [facility] Comment on above: Performed By: #### C MP, JENNIE, LIPA #### [facility] [address] [place] [address] Dr. Manuel Sandhu Urobilinogen Qn (U) 0.2 {Lucila'U}/dL Normal 0.2 - 1. 0 [facility] Comment on above: Performed By: #### C MP, JENNIE, LIPA #### [facility] [address] [place] [address] Dr. Manuel Sandhu LIPASEon 11-16-2021 Lipase [Catalytic activity/Vol] 78.0 U/L Normal 23.0-300.0 [facility] Comment on above: Performed By: #### C MP, JENNIE, LIPA #### [facility] [address] [place] [address] Dr. Manuel Sandhu URon 11-16-2021 , QUAL Negative Normal NEGATIVE [facility] Comment on above: Performed By: #### C MP, JENNIE, LIPA #### [facility] [address] [place] [address] Dr. Manuel Sandhu PROF 14(COMP METB)on 022 Albumin [Mass/Vol] 4.1 g/dL Normal 3.5-5.0 [facility] Comment on above: Performed By: #### C MP, JENNIE, LIPA #### [facility] [address] [address] [address] Manuel Sandhu Albumin/Globulin [Mass ratio] 1.1 {ratio} Normal [facility] Comment on above: Performed By: #### C JENNIE PATRICK, LIPA #### [facility] [address] [address] [address] Manuel Sandhu ALP [Catalytic activity/Vol] 102 U/L Normal 38-126 [facility] Comment on above: Performed By: #### C CELINA JENNIE, LIPA #### [facility] [address] [place] [address] Dr. Manuel Sandhu ALT [Catalytic activity/Vol] 39 U/L Normal 9-52 [facility] Comment on above: Performed By: #### C CELINA JENNIE, LIPA #### [facility] [address] [place] [address] Dr. Manuel Sandhu Anion gap [Moles/Vol] 11.5 mmol/L Normal [facility] Comment on above: Performed By: #### C CELINA JENNIE, LIPA #### [facility] [address] [place] [address] Dr. Manuel Sandhu AST [Catalytic activity/Vol] 28 U/L Normal 14-36 [facility] Comment on above: Performed By: #### C CELINA JENNIE, LIPA #### [facility] [address] [place] [address] Dr. Manuel Sandhu Bilirubin [Mass/Vol] 0.2 mg/dL Normal 0.2-1.3 [facility] Comment on above: Performed By: #### C MP JENNIE, LIPA #### [facility] [address] [place] [address] Dr. Manuel Sandhu Calcium [Mass/Vol] 9.1 mg/dL Normal 8.4-10.2 [facility] Comment on above: Performed By: #### C MP JENNIE, LIPA #### [facility] [address] [address] [address] Manuel Sandhu Chloride [Moles/Vol] 105 mmol/L Normal 98-107 [facility] Comment on above: Performed By: #### C JENNIE PATRICK, LIPA #### [facility] [address] [address] [address] Manuel Sandhu CO2 [Moles/Vol] 25.0 mmol/L Normal 22.0-30.0 [facility] Comment on above: Performed By: #### C MP, JENNIE, LIPA #### [facility] [address] [address] [address] Manuel Sandhu Creatinine [Mass/Vol] 0.77 mg/dL Normal 0.52-1.04 [facility] Comment on above: Performed By: #### C MP, JENNIE, LIPA #### [facility] [address] [address] [address] Manuel Sandhu EGFR-AF MEXICAN >60 Normal >=60 [facility] Comment on above: Performed By: #### C MP, JENNIE, LIPA #### [facility] [address] [address] [address] Manuel Sandhu EGFR-NON AF MEXICAN >60 Normal >=60 [facility] Comment on above: Performed By: #### C MP, JENNIE, LIPA #### [facility] [address] [address] [address] Manuel Sandhu Globulin (S) [Mass/Vol] 3.8 g/dL Normal [facility] Comment on above: Performed By: #### C MP, JENNIE, LIPA #### [facility] [address] [address] [address] Manuel Sandhu Glucose [Mass/Vol] 85 mg/dL Normal 74-106 [facility] Comment on above: Performed By: #### C MP, JENNIE, LIPA #### [facility] [address] [address] [address] Manuel Sandhu Potassium [Moles/Vol] 3.5 mmol/L Normal 3.4-5.0 [facility] Comment on above: Performed By: #### C MP, JENNIE, LIPA #### [facility] [address] [address] [address] Manuel Sandhu Protein [Mass/Vol] 7.9 g/dL Normal 6.1-8.2 [facility] Comment on above: Performed By: #### C MP JENNIE, LIPA #### [facility] [address] [address] [address] Manuel Sandhu Sodium [Moles/Vol] 138 mmol/L Normal 137-145 [facility] Comment on above: Performed By: #### C CELINA JENNIE, LIPA #### [facility] [address] [address] [address] Manuel Sandhu Urea nitrogen [Mass/Vol] 18.0 mg/dL Critically high 7.0-17.0 [facility] Comment on above: Performed By: #### C JENNIE PATRICK, LIPA #### [facility] [address] [address] [address] Manuel Sandhu Urea nitrogen/Creatinine [Mass ratio] 23.4 mg/mg Normal [facility] Comment on above: Performed By: #### C JENNIE PATRICK, LIPA #### [facility] [address] [address] ABDOMEN PELVIS W [...] in the pelvis, which could be physiologic. [employer] Phone: EXAMINATION: CT OF T HE ABDOMEN [...] grade 1 anterolisthesis at L5-S1 is unchanged. [employer] Phone: Dario, pn Incoming Radiant Results From FRM Study Course/Nextpeer - 02/04/2021 4:32 PM EDT EXAMINATION: CT [...] in the pelvis, which could be physiologic. Momo Phone: [employer]o Phone: Basic Metabolic Panel w/ Ref brannon to MGOrdered By: Ruiz Joel on 02-01-2021 Anion gap [Moles/Vol] 15 mmol/L 9 - 17 mmol/L [employer] Phone: Calcium [Mass/Vol] 8.5 mg/dL Low 8.6 - 10. 4 mg/dL [employer] Phone: Chloride [Moles/Vol] 107 mmol/L 98 - 10 7 mmol/L [employer] Phone: CO2 [Moles/Vol] 16 mmol/L Low 20 - 31 mmol/L [employer] Phone: Creatinine [Mass/Vol] 0.36 mg/dL Low 0.50 - 0.90 mg/dL [employer] Phone: GFR >60 >60 mL/min [employer] Phone: GFR Non- >60 >60 mL/min [employer] Phone: GFR/1.73 sq M.predicted MDRD (S/P/Bld) [Vol rate/Area] [employer] Phone: Comment on above: Average GFR for 30-3 9 years old: 107 mL/min/1.73sq m Chronic Kidney Disease: <60 mL/min/1.73sq m Kidney failure: <15 mL/min/1.73sq m eGFR calculated using average adult body mass. Additional eGFR calculator available at: http://www.[employer]/multiple_crcl_2012.htm GFR/1.73 sq M.predicted MDRD (S/P/Bld) [Vol rate/Area] NOT REPORTED [employer] Phone: Glucose [Mass/Vol] 79 mg/dL 70 - 99 mg/dL [employer] Work Phone: Interpretation and review of laboratory results Abnormal [employer] Phone: Potassium [Moles/Vol] 3.7 mmol/L 3.7 - 5.3 mmol/L [employer] Work Phone: Sodium [Moles/Vol] 138 mmol/L 135 - 144 mmol/L [employer] Work Phone: Urea nitrogen (BldV) [Mass/Vol] 2 mg/dL Low 6 - 20 mg/dL [employer] Work Phone: Urea nitrogen/Creatinine (Bld) [Mass ratio] NOT REPORTED [employer] Phone: [employer] Work Phone: CBC WITH AUTO DIFFERENTIALOr dered By: Ruiz Joel on 02-01-2021 Absolute Eos # 0.28 [email or web address] [facility] Work Phone: Absolute Immature Granulocyte 0.06 [employer] Work Phone: Absolute Lymph # 1.[address] [facility] Work Phone: Absolute Benzie # 1.46 [facility] Work Phone: Basophils (Bld) [#/Vol] 0.04 10*3/uL [employer] Work Phone: Basophils/100 WBC (Bld) 0 % 0 - 2 % [employer] Work Phone: Differential Type NOT REPORTED [employer] Work Phone: Eosinophils/100 WBC (Bld) 3 % 1 - 4 % [employer] Work Phone: Hematocrit (Bld) [Volume fraction] 33.7 % Low 36.3 - 47.1 % [employer] Work Phone: Hemoglobin.gastrointes tinal spec 1 Ql (Stl) 10.3 g/dL Low 11.9 - 15.1 g/dL [employer] Phone: Immature granulocytes/100 WBC (Bld) 1 % High 0 [employer] Phone: Interpretation and review of laboratory results Abnormal [employer] Phone: Lymphocytes/100 WBC (Bld) 14 % Low 24 - 43 % [employer] Phone: MCH (RBC) [Entitic mass] 29.9 pg 25.2 - 33.5 pg [employer] Phone: MCHC (RBC) [Mass/Vol] 30.6 g/dL 28.4 - 34.8 g/dL [employer] Phone: MCV (RBC) [Entitic vol] 98.0 fL 82.6 - 102.9 fL [employer] Phone: Monocytes/100 WBC (Bld) 13 % High 3 - 12 % [employer] Phone: NRBC Automated 0.0 0.0 per 100 WBC [employer] Phone: Platelet distribution width (Bld) [Ratio] 13.4 % 11.8 - 14.4 % [employer] Phone: Platelet Estimate NOT REPORTED [employer] Phone: Platelet mean volume (Bld) [Entitic vol] 11.6 fL 8.1 - 13.5 fL [employer] Phone: Platelets (Bld) [#/Vol] 392 10*3/uL [employer] Phone: RBC (Bld) [#/Vol] 3.44 10*6/uL Low 3.95 - 5.1 1 m/uL [employer] Phone: RBC (Bld) [#/Vol] NOT REPORTED [employer] Phone: Segmented neutrophils/100 WBC (Bld) 69 % High 36 - 65 % [employer] Phone: Segs Absolute 7[employer]88 [employer] Work Phone: WBC (Bld) [#/Vol] 11.3 10*3/uL [employer] Phone: WBC (Bld) [#/Vol] NOT REPORTED [employer] Phone: [employer] Work Phone: Basic Metabolic Panel w/ Ref brannon to MGOrdered By: Nicolasa Le on 01-31-2021 Anion gap [Moles/Vol] 17 mmol/L 9 - 17 mmol/L [employer] Phone: Calcium [Mass/Vol] 8.7 mg/dL 8.6 - 10. 4 mg/dL [employer] Phone: Chloride [Moles/Vol] 105 mmol/L 98 - 10 7 mmol/L [employer] Phone: CO2 [Moles/Vol] 15 mmol/L Low 20 - 31 mmol/L [employer] Phone: Creatinine [Mass/Vol] 0.36 mg/dL Low 0.50 - 0.90 mg/dL [employer] Phone: GFR >60 >60 mL/min [employer] Phone: GFR Non- >60 >60 mL/min [employer] Phone: GFR/1.73 sq M.predicted MDRD (S/P/Bld) [Vol rate/Area] [employer] Phone: Comment on above: Average GFR for 30-3 9 years old: 107 mL/min/1.73sq m Chronic Kidney Disease: <60 mL/min/1.73sq m Kidney failure: <15 mL/min/1.73sq m eGFR calculated using average adult body mass. Additional eGFR calculator available at: http://www.[employer]rph.com/multiple_crcl_2012.htm GFR/1.73 sq M.predicted MDRD (S/P/Bld) [Vol rate/Area] NOT REPORTED [employer] Work Phone: Glucose [Mass/Vol] 78 mg/dL 70 - 99 mg/dL [employer] Work Phone: Interpretation and review of laboratory results Abnormal [employer] Phone: Potassium [Moles/Vol] 3.8 mmol/L 3.7 - 5.3 mmol/L [employer] Work Phone: Sodium [Moles/Vol] 137 mmol/L 135 - 144 mmol/L [employer] Phone: Urea nitrogen (BldV) [Mass/Vol] 3 mg/dL Low 6 - 20 mg/dL [employer] Phone: Urea nitrogen/Creatinine (Bld) [Mass ratio] NOT REPORTED [employer] Work Phone: [employer] Work Phone: CBC auto differentialOrdered By: Nicolasa Le on 01-31-2021 Absolute Eos # 0.30 [email or web address] [facility] Work Phone: Absolute Immature Granulocyte 0.15 [employer] Work Phone: Absolute Lymph # 2.10 [email or web address] [facility] Work Phone: Absolute Benzie # 2.25 High [employer] [facility] Work Phone: Basophils (Bld) [#/Vol] 0.00 10*3/uL [employer] Work Phone: Basophils/100 WBC (Bld) 0 % 0 - 2 % [employer] Work Phone: Differential Type NOT REPORTED [employer] Phone: Eosinophils/100 WBC (Bld) 2 % 1 - 4 % [employer] Work Phone: Hematocrit (Bld) [Volume fraction] 35.7 % Low 36.3 - 47.1 % [employer] Phone: Hemoglobin.gastrointes tinal spec 1 Ql (Stl) 10.8 g/dL Low 11.9 - 15.1 g/dL [employer] Phone: Immature granulocytes/100 WBC (Bld) 1 % High 0 [employer] Phone: Interpretation and review of laboratory results Abnormal [employer] Phone: Lymphocytes/100 WBC (Bld) 14 % Low 24 - 43 % [employer] Phone: MCH (RBC) [Entitic mass] 29.9 pg 25.2 - 33.5 pg [employer] Phone: MCHC (RBC) [Mass/Vol] 30.3 g/dL 28.4 - 34.8 g/dL [employer] Phone: MCV (RBC) [Entitic vol] 98.9 fL 82.6 - 102.9 fL [employer] Phone: Monocytes/100 WBC (Bld) 15 % High 3 - 12 % [employer] Phone: Morphology Celso (Bld) [Interp] Normal [employer] Phone: NRBC Automated 0.0 0.0 per 100 WBC [employer] Phone: Platelet distribution width (Bld) [Ratio] 13.5 % 11.8 - 14.4 % [employer] Phone: Platelet Estimate NOT REPORTED [employer] Phone: Platelet mean volume (Bld) [Entitic vol] 11.6 fL 8.1 - 13.5 fL [employer] Phone: Platelets (Bld) [#/Vol] 375 10*3/uL [employer] Phone: RBC (Bld) [#/Vol] 3.61 10*6/uL Low 3.95 - 5.1 1 m/uL [employer] Work Phone: RBC (Bld) [#/Vol] NOT REPORTED [employer] Work Phone: Segmented neutrophils/100 WBC (Bld) 68 % High 36 - 65 % [employer] Work Phone: Segs Absolute 10.20 High [facility] Work Phone: WBC (Bld) [#/Vol] 15.0 10*3/uL High [email or web address] [facility] Work Phone: WBC (Bld) [#/Vol] NOT REPORTED [employer] Work Phone: [employer] Work Phone: CBC Auto DifferentialOrdered By: David Nash on 01-30-2021 Absolute Eos # 0.21 [email or web address] [facility] Work Phone: Absolute Immature Granulocyte 0.04 [employer] Work Phone: Absolute Lymph # 1.88 [employer] [facility] Work Phone: Absolute Benzie # 1.43 High [email or web address] [facility] Work Phone: Basophils (Bld) [#/Vol] 0.04 10*3/uL [employer] Work Phone: Basophils/100 WBC (Bld) 0 % 0 - 2 % [employer] Work Phone: Differential Type NOT REPORTED [employer] Work Phone: Eosinophils/100 WBC (Bld) 2 % 1 - 4 % [employer] Work Phone: Hematocrit (Bld) [Volume fraction] 36.2 % Low 36.3 - 47.1 % [employer] Work Phone: Hemoglobin.gastrointes tinal spec 1 Ql (Stl) 11.7 g/dL Low 11.9 - 15.1 g/dL [employer] Phone: Immature granulocytes/100 WBC (Bld) 0 % 0 [employer] Phone: Interpretation and review of laboratory results Abnormal [employer] Phone: Lymphocytes/100 WBC (Bld) 15 % Low 24 - 43 % [employer] Phone: MCH (RBC) [Entitic mass] 30.3 pg 25.2 - 33.5 pg [employer] Phone: MCHC (RBC) [Mass/Vol] 32.3 g/dL 28.4 - 34.8 g/dL [employer] Phone: MCV (RBC) [Entitic vol] 93.8 fL 82.6 - 102.9 fL [employer] Phone: Monocytes/100 WBC (Bld) 12 % 3 - 12 % [employer] Phone: NRBC Automated 0.0 0.0 per 100 WBC [employer] Phone: Platelet distribution width (Bld) [Ratio] 13.2 % 11.8 - 14.4 % [employer] Phone: Platelet Estimate NOT REPORTED [employer] Phone: Platelet mean volume (Bld) [Entitic vol] 11.6 fL 8.1 - 13.5 fL [employer] Phone: Platelets (Bld) [#/Vol] 414 10*3/uL [employer] Phone: RBC (Bld) [#/Vol] 3.86 10*6/uL Low 3.95 - 5.1 1 m/uL [employer] Phone: RBC (Bld) [#/Vol] NOT REPORTED [employer] Phone: Segmented neutrophils/100 WBC (Bld) 71 % High 36 - 65 % [employer] Phone: Segs Absolute 8[employer]75 [employer] Work Phone: WBC (Bld) [#/Vol] 12.4 10*3/uL High [employer] Work Phone: WBC (Bld) [#/Vol] NOT REPORTED Mom[employer] Phone: Momo Phone: CT ABDOMEN PELVIS W IV CONTR [...] anterolisthesis and marked decrease in disc height. [employer] Phone: EXAMINATION: CT OF T ABDOMEN AND [...] height was noted at the L5-S1 disc. [employer] Phone: Dario, Mhpn Incoming Radiant Results From FRM Study Course/Nextpeer - 01/30/2021 12:20 PM EDT EXAMINATION: CT [...] anterolisthesis and marked decrease in disc height. [employer] Phone: [employer] Phone: Comprehensive Metabolic Pane l w/ Reflex to MGOrdered By: David Nash on 01-30-2021 Albumin [Mass/Vol] 3.6 g/dL 3.5 - 5.2 g/dL [employer] Phone: Albumin/Globulin [Mass ratio] 1.0 {ratio} [employer] Phone: ALP (Bld) [Catalytic activity/Vol] 107 U/L High 35 - 104 U/L [employer] Phone: ALT [Catalytic activity/Vol] 33 U/L 5 - 33 U/L [employer] Phone: Anion gap [Moles/Vol] 17 mmol/L 9 - 17 mmol/L [employer] Phone: AST [Catalytic activity/Vol] 26 U/L <32 [employer] Phone: Bilirubin [Mass/Vol] 0.25 mg/dL Low 0.3 - 1 .2 mg/dL [employer] Phone: Calcium [Mass/Vol] 9.5 mg/dL 8.6 - 10. 4 mg/dL [employer] Phone: Chloride [Moles/Vol] 104 mmol/L 98 - 10 7 mmol/L [employer] Phone: CO2 [Moles/Vol] 19 mmol/L Low 20 - 31 mmol/L [employer] Phone: Creatinine [Mass/Vol] 0.47 mg/dL Low 0.50 - 0.90 mg/dL [employer] Phone: Free PSA/Total PSA [Mass fraction] 7.3 g/dL 6.4 - 8.3 g/dL [employer] Phone: GFR >60 >60 mL/min [employer] Phone: GFR Non- >60 >60 mL/min [employer] Phone: Glucose [Mass/Vol] 79 mg/dL 70 - 99 mg/dL [employer] Phone: Interpretation and review of laboratory results Abnormal [employer] Phone: Potassium [Moles/Vol] 3.8 mmol/L 3.7 - 5.3 mmol/L [employer] Phone: Sodium [Moles/Vol] 140 mmol/L 135 - 144 mmol/L [employer] Phone: Urea nitrogen (BldV) [Mass/Vol] 5 mg/dL Low 6 - 20 mg/dL [employer] Phone: Urea nitrogen/Creatinine (Bld) [Mass ratio] 11 [employer] Phone: HCG Qualitative, SerumOrdere d By: Noreen Linda on 01-30-2021 hCG Qual Negative NEGATIVE [employer] Phone: Comment on above: Specimens with hCG l evels near the threshold of the test (25 mIU/mL) may give a negative or indeterminate result. In such cases, another test should be performed with a new specimen in 48-72 hours. If early is suspected clinically in this setting, correlation with quantitative serum b-hCG level is suggested. [employer] has confirmed the use of plasma for this test. This has not been cleared or approved by the U.S. Food and Drug Administration. The FDA has determined that such clearance is not necessary. [employer] Phone: Laboratory - Chemistry and C hemistry - challengeOrdered By: David Nash on 01-30-2021 GFR/1.73 sq M.predicted MDRD (S/P/Bld) [Vol rate/Area] [employer] Work Phone: Comment on above: Average GFR for 30-3 9 years old: 107 mL/min/1.73sq m Chronic Kidney Disease: <60 mL/min/1.73sq m Kidney failure: <15 mL/min/1.73sq m eGFR calculated using average adult body mass. Additional eGFR calculator available at: http://www.[employer]/multiple_crcl_2012.htm Stage 1: Some kidney damage normal GFR Stage 2: Mild kidney damage GFR 60-89 Stage 3: Moderate kidney damage GFR 30-59 Stage 4: Severe kidney damage GFR 15-29 Stage 5: Severe kidney damage GFR <15 ESRD - chronic treatment by dialysis or transplant Lactic AcidOrdered By: Beatriz Nash on 01-30-2021 Lactate [Moles/Vol] 0.6 mmol/L 0.5 - 2. 2 mmol/L [employer] Work Phone: [employer] Work Phone: LipaseOrdered By: David dalton on 01-30-2021 Lipase [Catalytic activity/Vol] 30 U/L 13 - 60 U/L [employer] Phone: Microscopic UrinalysisOrdere d By: David Nash on 01-30-2021 - [employer] Work Phone: Amorphous, UA NOT REPORTED None [facility] Work Phone: Bacteria, UA TRACE Abnormal None [employer] Work Phone: Casts UA NOT REPORTED /LPF [facility] Work Phone: Crystals, UA NOT REPORTED None /HPF [facility] Work Phone: Epithelial Cells UA 2 TO 5 [facility] Work Phone: Interpretation and review of laboratory results Abnormal [facility] Work Phone: Mucus, UA NOT REPORTED None [facility] Work Phone: Other Observations UA NOT REPORTED NOT REQ. [facility] Work Phone: RBC, UA 0 TO 2 [facility] Work Phone: Renal Epithelial, UA NOT REPORTED 0 /HPF [facility] Work Phone: Trichomonas, UA NOT REPORTED None [facility] Work Phone: WBC, UA 2 TO 5 [facility] Work Phone: Yeast, UA NOT REPORTED None [facility] Work Phone: [facility] Work Phone: No Panel InformationOrdered By: David Nash on 01-30-2021 [facility] Work Phone: Protime-INROrdered By: Linda Mckeon on 01-30-2021 INR Coag (Bld) [Relative time] 1.1 {INR} [facility] Work Phone: Comment on above: Therapeutic Range: Moderate Anticoagulant Intensity: INR = 2.0-3.0 High Anticoagulant Intensity: INR = 2.5-3.5 PT Coag (PPP) [Time] 11.4 s [facility] Work Phone: [facility] Work Phone: Urinalysis, reflex to micros copicOrdered By: David Nash on 01-30-2021 Bilirubin Urine SMALL Abnormal NEGATIVE [facility] Work Phone: Color, UA YELLOW YELLOW [facility] Work Phone: Glucose, Ur Negative NEGATIVE [facility] Work Phone: Interpretation and review of laboratory results Abnormal [facility] Work Phone: Ketones Ql (U) 4+ [facility]normal [facility]IVE [facility] Work Phone: Leukocyte esterase Test strip Ql (U) Negative NEGATIVE [facility] Work Phone: Nitrite, Urine Negative NEGATIVE [facility] Work Phone: pH, UA 5.5 [facility] Work Phone: Protein, UA Negative NEGATIVE [facility] Work Phone: Specific Cerrillos, UA <1.005 Low [facility] Work Phone: Turbidity UA CLEAR CLEAR [facility] Work Phone: Urinalysis Comments NOT REPORTED [facility] Work Phone: Urine Hgb Negative NEGATIVE [facility] Phone: Urobilinogen, Urine Normal Normal [facility] [employer] Phone: [facility] Work Phone: Basic Metabolic PanelOrdered By: Gamaliel Vickers on 01-08-2021 Anion gap [Moles/Vol] 11 mmol/L 9 - 17 mmol/L [facility] Phone: Calcium [Mass/Vol] 9.1 mg/dL 8.6 - 10. 4 mg/dL [facility] Phone: Chloride [Moles/Vol] 105 mmol/L 98 - 10 7 mmol/L [facility] Phone: CO2 [Moles/Vol] 23 mmol/L 20 - 31 mmol/L [facility] Phone: Creatinine [Mass/Vol] 0.57 mg/dL 0.50 - 0.90 mg/dL [facility] Phone: GFR >60 >60 mL/min [facility] [employer] Work Phone: GFR Non- >60 >60 mL/min [facility] Phone: GFR/1.73 sq M.predicted MDRD (S/P/Bld) [Vol rate/Area] [employer] Phone: Comment on above: Average GFR for 30-3 9 years old: 107 mL/min/1.73sq m Chronic Kidney Disease: <60 mL/min/1.73sq m Kidney failure: <15 mL/min/1.73sq m eGFR calculated using average adult body mass. Additional eGFR calculator available at: http://www.[employer]/multiple_crcl_2012.htm GFR/1.73 sq M.predicted MDRD (S/P/Bld) [Vol rate/Area] NOT REPORTED [employer] Phone: Glucose [Mass/Vol] 106 mg/dL High 70 - 99 mg/dL [employer] Phone: Interpretation and review of laboratory results Abnormal [employer] Phone: Potassium [Moles/Vol] 3.7 mmol/L 3.7 - 5.3 mmol/L [employer] Phone: Sodium [Moles/Vol] 139 mmol/L 135 - 144 mmol/L [employer] Phone: Urea nitrogen (BldV) [Mass/Vol] 7 mg/dL 6 - 20 mg/dL [employer] Phone: Urea nitrogen/Creatinine (Bld) [Mass ratio] NOT REPORTED [employer] Phone: CBCOrdered By: Gamaliel castillo on 01-08-2021 Hematocrit (Bld) [Volume fraction] 38.0 % 36.3 - 47.1 % [employer] Phone: Hemoglobin.gastrointes tinal spec 1 Ql (Stl) 12.2 g/dL 11.9 - 15.1 g/dL [employer] Phone: Interpretation and review of laboratory results Abnormal [employer] Phone: MCH (RBC) [Entitic mass] 30.4 pg 25.2 - 33.5 pg [employer] Phone: MCHC (RBC) [Mass/Vol] 32.1 g/dL 28.4 - 34.8 g/dL [employer] Phone: MCV (RBC) [Entitic vol] 94.8 fL 82.6 - 102.9 fL [employer] Phone: NRBC Automated 0.0 0.0 per 100 WBC [employer] Phone: Platelet distribution width (Bld) [Ratio] 13.5 % 11.8 - 14.4 % [employer] Phone: Platelet mean volume (Bld) [Entitic vol] 11.4 fL 8.1 - 13.5 fL [employer] Phone: Platelets (Bld) [#/Vol] 304 10*3/uL [employer] Phone: RBC (Bld) [#/Vol] 4.01 10*6/uL 3.95 - 5.1 1 m/uL [employer] Phone: WBC (Bld) [#/Vol] 18.0 10*3/uL High [employer] Phone: FL ESOPHAGRAMOrdered By: Yadi Vickers on 01-08-2021 No evidence of postoperative leak. [employer] Phone: EXAMINATION: SINGLE CONTRAST ESOPHAGRAM 01/08/2021 HISTORY: [...] KUB/radiographs to assess progression as clinically warranted. [employer] Phone: Dario, Mhpn Incoming Radiant Results From FRM Study Course/[employer] - 01/08/2021 12:29 PM EDT EXAMINATION: SINGLE [...] warranted. IMPRESSION: No evidence of postoperative leak. [employer] Phone: Basic Metabolic PanelOrdered By: Gamaliel Vickers on 01-07-2021 Anion gap [Moles/Vol] 10 mmol/L 9 - 17 mmol/L [employer] Phone: Calcium [Mass/Vol] 8.8 mg/dL 8.6 - 10. 4 mg/dL [employer] Phone: Chloride [Moles/Vol] 105 mmol/L 98 - 10 7 mmol/L [employer] Phone: CO2 [Moles/Vol] 20 mmol/L 20 - 31 mmol/L [employer] Phone: Creatinine [Mass/Vol] 0.68 mg/dL 0.50 - 0.90 mg/dL [employer] Phone: GFR >60 >60 mL/min [employer] Phone: GFR Non- >60 >60 mL/min [employer] Phone: GFR/1.73 sq M.predicted MDRD (S/P/Bld) [Vol rate/Area] [employer] Phone: Comment on above: Average GFR for 30-3 9 years old: 107 mL/min/1.73sq m Chronic Kidney Disease: <60 mL/min/1.73sq m Kidney failure: <15 mL/min/1.73sq m eGFR calculated using average adult body mass. Additional eGFR calculator available at: http://www.FirstBest.Oesia/multiple_crcl_2012.htm GFR/1.73 sq M.predicted MDRD (S/P/Bld) [Vol rate/Area] NOT REPORTED [employer] Phone: Glucose [Mass/Vol] 215 mg/dL High 70 - 99 mg/dL [employer] Phone: Interpretation and review of laboratory results Abnormal [employer] Phone: Potassium [Moles/Vol] 4.2 mmol/L 3.7 - 5.3 mmol/L [employer] Phone: Sodium [Moles/Vol] 135 mmol/L 135 - 144 mmol/L [employer] Phone: Urea nitrogen (BldV) [Mass/Vol] 14 mg/dL 6 - 20 mg/dL [employer] Phone: Urea nitrogen/Creatinine (Bld) [Mass ratio] NOT REPORTED [employer] Phone: CBC without DiffOrdered By: Gamaliel Vickers on 01-07-2021 Hematocrit (Bld) [Volume fraction] 38.3 % 36.3 - 47.1 % [employer] Phone: Hemoglobin.gastrointes tinal spec 1 Ql (Stl) 12.5 g/dL 11.9 - 15.1 g/dL [employer] Phone: Interpretation and review of laboratory results Abnormal [employer] Phone: MCH (RBC) [Entitic mass] 30.9 pg 25.2 - 33.5 pg [employer] Phone: MCHC (RBC) [Mass/Vol] 32.6 g/dL 28.4 - 34.8 g/dL [employer] Phone: MCV (RBC) [Entitic vol] 94.8 fL 82.6 - 102.9 fL [employer] Phone: NRBC Automated 0.0 0.0 per 100 WBC [employer] Phone: Platelet distribution width (Bld) [Ratio] 13.4 % 11.8 - 14.4 % [employer] Phone: Platelet mean volume (Bld) [Entitic vol] 11.2 fL 8.1 - 13.5 fL [employer] Phone: Platelets (Bld) [#/Vol] 373 10*3/uL [employer] Phone: RBC (Bld) [#/Vol] 4.04 10*6/uL 3.95 - 5.1 1 m/uL [employer] Phone: WBC (Bld) [#/Vol] 24.9 10*3/uL High [employer] Phone: POCT urine pregnancyOrdered By: Gamaliel Vickers on 01-07-2021 Beta HCG ( test) Ql (U) Negative NEGATIVE [employer] Phone: Comment on above: Specimens with hCG l evels near the threshold of the test (25 mIU/mL) may give a negative or indeterminate result. In such cases, another test should be performed with a new specimen in 48-72 hours. If early is suspected clinically in this setting, correlation with quantitative serum b-hCG level is suggested. [id number] 01-04-2021 SARS-CoV-2 (COVID-19) RNA JOSÉ MIGUEL+probe Ql (Unsp spec) Normal [facility] Comment on above: Performed By: #### C OVID #### [facility] [address] [place] [address] Supervisor [employer]: Wei Reyna MD [facility] [employer] [facility] [place] [address] Supervisor [employer]: Harpal Adair MD SARS-CoV-2 (COVID-19) RNA JOSÉ MIGUEL+probe Ql (Unsp spec) Not detected Normal NOTDET [facility] Comment on above: Result Comment: The specimen is NEGATIVE for SARS-CoV-2, the novel coronavirus associated with COVID-19. A negative result does not rule out COVID-19. [employer]ide SARS-CoV-2 for use on the [employer] is a real-time RT-PCR test intended [...] this assay. Fact sheet for Healthcare Providers: https://www.fda.gov/media/660791/download Fact sheet for Patients: https://www.fda.gov/media/468183/download METHODOLOGY: RT-PCR Performed By: #### C OVID #### [facility] [address] [place] [address] Supervisor [employer]: Wei Reyna MD [address] [id number] Supervisor [employer]: Harpal Adair MD [id number] 01-03-2021 SARS-CoV-2 (COVID-19) RNA JOSÉ MIGUEL+probe Ql (Unsp spec) .NASOPHARYNGEAL SWAB Normal [facility] Comment on above: Performed By: #### C OVID #### [facility] [address] [place] [address] Supervisor [employer]: Wei Reyna MD [address] [id number] Supervisor [employer]: Harpal Adair MD Nicotine, BloodOrdered By: Jose Vickers on 12-26-2020 3-LS-Gvselsqv <2 ng/mL [employer] Work Phone: Cotinine <2 ng/mL [employer] Phone: Nicotine <2 ng/mL [employer] Phone: Comment on above: (NOTE) Consistent with [...] developed and its performance characteristics determined by [facility]. It has not been cleared or approved by the US Food and Drug Administration. This test was performed in a CLIA certified laboratory and is intended for clinical purposes. Performed By: [facility] [address] [place] [id number] Media Reporter: Brissa Bonilla MD EKG 12 LeadOrdered By: Enmanuel Vickers on 12-25-2020 Atrial Rate 70 BPM [employer] Phone: P [place] 20 degrees [employer] Phone: P-R Interval 176 ms [employer] Phone: Q-T Interval 414 ms [employer] Phone: QRS Duration 88 ms [employer] Phone: QTc Calculation (Bazett) 447 ms [employer] Phone: R [place] 7 degrees [employer] Phone: T [place] 8 degrees [employer] Phone: Ventricular Rate 70 BPM [employer] Phone: Normal sinus rhythm Normal ECG No previous ECGs available [employer] Phone: Dario, Mhpn Incoming E kg Results From [email or web address] - 12/25/2020 12:47 PM EDT Normal sinus rhythm Normal ECG No previous ECGs available [employer] Phone: APTTOrdered By: Gamaliel horvath on 12-24-2020 aPTT Coag (Bld) [Time] 23.1 s [facility] [employer] Phone: Comment on above: IV Heparin Therapy Range: 48.6-77.8 Basic Metabolic PanelOrdered By: Gamaliel Vickers on 12-24-2020 Anion gap [Moles/Vol] 10 mmol/L 9 - 17 mmol/L [employer] Phone: Calcium [Mass/Vol] 9.4 mg/dL 8.6 - 10. 4 mg/dL [employer] Phone: Chloride [Moles/Vol] 106 mmol/L 98 - 10 7 mmol/L [employer] Phone: CO2 [Moles/Vol] 23 mmol/L 20 - 31 mmol/L [employer] Phone: Creatinine [Mass/Vol] 0.56 mg/dL 0.50 - 0.90 mg/dL [employer] Phone: GFR >60 >60 mL/min [employer] Phone: GFR Non- >60 >60 mL/min [employer] Phone: GFR/1.73 sq M.predicted MDRD (S/P/Bld) [Vol rate/Area] [employer] Phone: Comment on above: Average GFR for 30-3 9 years old: 107 mL/min/1.73sq m Chronic Kidney Disease: <60 mL/min/1.73sq m Kidney failure: <15 mL/min/1.73sq m eGFR calculated using average adult body mass. Additional eGFR calculator available at: http://www.[employer]/multiple_crcl_2012.htm GFR/1.73 sq M.predicted MDRD (S/P/Bld) [Vol rate/Area] NOT REPORTED [employer] Phone: Glucose [Mass/Vol] 86 mg/dL 70 - 99 mg/dL [employer] Phone: Potassium [Moles/Vol] 3.8 mmol/L 3.7 - 5.3 mmol/L [employer] Phone: Sodium [Moles/Vol] 139 mmol/L 135 - 144 mmol/L [employer] Phone: Urea nitrogen (BldV) [Mass/Vol] 12 mg/dL 6 - 20 mg/dL [employer] Phone: Urea nitrogen/Creatinine (Bld) [Mass ratio] NOT REPORTED [employer] Phone: CBCOrdered By: Gamaliel castillo on 12-24-2020 Hematocrit (Bld) [Volume fraction] 41.2 % 36.3 - 47.1 % [employer] Phone: Hemoglobin.gastrointes tinal spec 1 Ql (Stl) 13.4 g/dL 11.9 - 15.1 g/dL [employer] Phone: MCH (RBC) [Entitic mass] 30.5 pg 25.2 - 33.5 pg [employer] Phone: MCHC (RBC) [Mass/Vol] 32.5 g/dL 28.4 - 34.8 g/dL [employer] Phone: MCV (RBC) [Entitic vol] 93.6 fL 82.6 - 102.9 fL [employer] Phone: NRBC Automated 0.0 0.0 per 100 WBC [employer] Phone: Platelet distribution width (Bld) [Ratio] 13.2 % 11.8 - 14.4 % [employer] Phone: Platelet mean volume (Bld) [Entitic vol] 10.7 fL 8.1 - 13.5 fL [employer] Phone: Platelets (Bld) [#/Vol] 391 10*3/uL [employer] Phone: RBC (Bld) [#/Vol] 4.40 10*6/uL 3.95 - 5.1 1 m/uL [employer] Phone: WBC (Bld) [#/Vol] 8.5 10*3/uL [employer] Phone: Protime-INROrdered By: Enmanuel Vickers on 12-24-2020 INR Coag (Bld) [Relative time] 0.9 {INR} [employer] Phone: Comment on above: Therapeutic Range: Moderate Anticoagulant Intensity: INR = 2.0-3.0 High Anticoagulant Intensity: INR = 2.5-3.5 PT Coag (PPP) [Time] 10 s [employer] Phone: XR CHEST (2 VW)on 12-24-2020 No acute cardiopulmonary findings [employer] Phone: EXAMINATION: TWO XRA Y VIEWS OF THE CHEST 12/24/2020 11:24 am COMPARISON: None. HISTORY: ORDERING SYSTEM PROVIDED HISTORY: preop gastric bypass [employer] TECHNOLOGIST PROVIDED HISTORY: preop gastric bypass Tian En Y Reason for Exam: no chest complaints FINDINGS: Normal cardiopericardial silhouette There are no significant mediastinal, pleural, parenchymal or osseous findings [employer] Phone: Dario, Mhpn Incoming Radiant Results From FRM Study Course/[employer] - 12/24/2020 11:30 AM EDT EXAMINATION: TWO XRAY VIEWS OF THE CHEST 12/24/2020 11:24 am COMPARISON: None. HISTORY: ORDERING SYSTEM PROVIDED HISTORY: preop gastric bypass Tian [employer] Y TECHNOLOGIST PROVIDED HISTORY: preop gastric bypass Tian En Y Reason for Exam: no chest complaints FINDINGS: Normal cardiopericardial silhouette There are no significant mediastinal, pleural, parenchymal or osseous findings IMPRESSION: No acute cardiopulmonary findings [employer] Phone: XR CHEST (2 VW)Ordered By: Jose Vickers on 12-24-2020 No acute cardiopulmonary findings [employer] Phone: EXAMINATION: TWO XRA Y VIEWS OF THE CHEST 12/24/2020 11:24 am COMPARISON: None. HISTORY: ORDERING SYSTEM PROVIDED HISTORY: preop gastric bypass [employer] TECHNOLOGIST PROVIDED HISTORY: preop gastric bypass Tian [employer] Y Reason for Exam: no chest complaints FINDINGS: Normal cardiopericardial silhouette There are no significant mediastinal, pleural, parenchymal or osseous findings [employer] Phone: Dario, pn Incoming Radiant Results From FRM Study Course/[employer] - 12/24/2020 11:30 AM EDT EXAMINATION: TWO XRAY VIEWS OF THE CHEST 12/24/2020 11:24 am COMPARISON: None. HISTORY: ORDERING SYSTEM PROVIDED HISTORY: preop gastric bypass Tian [employer] TECHNOLOGIST PROVIDED HISTORY: preop gastric bypass Tian En Y Reason for Exam: no chest complaints FINDINGS: Normal cardiopericardial silhouette There are no significant mediastinal, pleural, parenchymal or osseous findings IMPRESSION: No acute cardiopulmonary findings [employer] Phone: FL UGI W AIR CONTRASTon 10-15 Intermittent significant spontaneous GE reflux. Otherwise unremarkable double-contrast upper GI and esophagram. [employer] Phone: EXAMINATION: DOUBLE CONTRAST UPPER GI SERIES [...] The duodenal bulb and sweep are normal. [employer] Phone: Dario, pn Incoming Radiant Results From [employer] - 11/01/2020 5:21 PM EST EXAMINATION: DOUBLE [...] Otherwise unremarkable double-contrast upper GI and esophagram. [employer] Phone: COVID-19on 09-25-2020 SARS-CoV-2 [place], [place] SARS-CoV-2 Not Detected Not Detected [place], [place] Comment on above: The specimen is NEGATIVE for SARS-CoV-2, the novel coronavirus associated with COVID-19. A negative result does not rule out COVID-19. Heide SARS-CoV-2 for use on the Heide Adcast0/8800 Systems is a real-time RT-PCR test intended [...] this assay. Fact sheet for Healthcare Providers: https://www.[employer]gov/media/286905/download Fact sheet for Patients: https://www.fda.gov/media/198031/download METHODOLOGY: RT-PCR SARS-CoV-2, [place], [place] Source .NASOPHARYNGEAL SWAB [place], [place] Vital Signs Date Time Vital Sign Value Performing Clinician Facility 04-13-2025 09:41-0400 Body height 170.2 cm Aaliyah Itzkowitz DO Work Phone[facility] 04-13-2025 09:41-0400 Body mass index (BMI) [Ratio] 30.54 kg/m2 Aaliyah Itzkowitz DO Work Phone: [facility] 04-13-2025 09:41-0400 Body weight 88.45 kg Aaliyah Itzkowitz DO Work Phone: [facility] 04-13-2025 09:41-0400 Diastolic blood pressure 84 mm[Hg] Aaliyah Itzkowitz DO Work Phone: [facility] 04-13-2025 09:41-0400 Systolic blood pressure 118 mm[Hg] Aaliyah Itzkowitz DO Work Phone: [facility] 04-09-2025 10:45-0400 Body mass index (BMI) [Ratio] 32.44 kg/m2 Shazia Didion BOX FABRICATOR Work Phone: [facility] 04-09-2025 10:45-0400 Body temperature 96.1 [degF] Shazia Didion BOX FABRICATOR Work Phone: [facility] 04-09-2025 10:45-0400 Body weight 91.17 kg Shazia Didion BOX FABRICATOR Work Phone: [facility] 04-09-2025 10:45-0400 Diastolic blood pressure 82 mm[Hg] Shazia Barahonaion BOX FABRICATOR Work Phone: [facility] 04-09-2025 10:45-0400 Heart rate 95 /min Shazia Barahonaion BOX FABRICATOR Work Phone: [facility] 04-09-2025 10:45-0400 SaO2% (BldA) [Mass fraction] 98 % Shazia Barahonaion BOX FABRICATOR Work Phone: [facility] 04-09-2025 10:45-0400 Systolic blood pressure 118 mm[Hg] Shazia Barahonaion BOX FABRICATOR Work Phone: [facility] 01-27-2025 10:12-0400 Diastolic blood pressure 91 mm[Hg] [facility] 01-27-2025 10:12-0400 Heart rate 86 /min [facility] 01-27-2025 10:12-0400 Mean blood pressure 106 mm[Hg] [facility] 01-27-2025 10:12-0400 Respiratory rate 14 /min [facility] 01-27-2025 10:12-0400 Systolic blood pressure 136 mm[Hg] [facility] 01-24-2025 09:59-0400 Heart rate 76 /min [facility] 01-24-2025 09:59-0400 SaO2% (BldA) [Mass fraction] 100 % [facility] 01-24-2025 09:59-0400 Diastolic blood pressure 88 mm[Hg] [facility] 01-24-2025 09:59-0400 Mean blood pressure 104 mm[Hg] [facility] 01-24-2025 09:59-0400 Systolic blood pressure 137 mm[Hg] [facility] 01-24-2025 09:54-0400 Diastolic blood pressure 80 mm[Hg] [facility] 01-24-2025 09:54-0400 Heart rate 79 /min [facility] 01-24-2025 09:54-0400 Respiratory rate 14 /min [facility] 01-24-2025 09:54-0400 SaO2% (BldA) [Mass fraction] 100 % [facility] 01-24-2025 09:54-0400 Systolic blood pressure 141 mm[Hg] [facility] 01-24-2025 08:35-0400 Heart rate 79 /min [facility] 01-24-2025 08:35-0400 SaO2% (BldA) [Mass fraction] 99 % [facility] 01-24-2025 08:34-0400 Body temperature 97.88 [degF] [facility] 01-24-2025 08:34-0400 Diastolic blood pressure 91 mm[Hg] [facility] 01-24-2025 08:34-0400 Mean blood pressure 105 mm[Hg] [facility] 01-24-2025 08:34-0400 Systolic blood pressure 134 mm[Hg] [facility] 01-24-2025 08:32-0400 Respiratory rate 16 /min [facility] 01-13-2025 08:15-0400 Diastolic blood pressure 95 mm[Hg] [facility] 01-13-2025 08:15-0400 Heart rate 79 /min [facility] 01-13-2025 08:15-0400 Mean blood pressure 108 mm[Hg] [facility] 01-13-2025 08:15-0400 Respiratory rate 16 /min [facility] 01-13-2025 08:15-0400 Systolic blood pressure 133 mm[Hg] [facility] 12-16-2024 10:31-0400 Body height 170.18 cm [facility] 12-16-2024 10:31-0400 Body weight 83.91 kg [facility] 11-28-2024 10:23-0400 Heart rate 64 /min [facility] 11-28-2024 10:23-0400 SaO2% (BldA) [Mass fraction] 100 % [facility] 11-28-2024 10:23-0400 Diastolic blood pressure 86 mm[Hg] [facility] 11-28-2024 10:23-0400 Mean blood pressure 101 mm[Hg] [facility] 11-28-2024 10:23-0400 Systolic blood pressure 133 mm[Hg] [facility] 11-28-2024 10:23-0400 Respiratory rate 16 /min [facility] 11-28-2024 10:19-0400 Diastolic blood pressure 97 mm[Hg] [facility] 11-28-2024 10:19-0400 Heart rate 81 /min [facility] 11-28-2024 10:19-0400 SaO2% (BldA) [Mass fraction] 97 % [facility] 11-28-2024 10:19-0400 Systolic blood pressure 137 mm[Hg] [facility] 11-28-2024 09:10-0400 Heart rate 77 /min [facility] 11-28-2024 09:10-0400 SaO2% (BldA) [Mass fraction] 99 % [facility] 11-28-2024 09:09-0400 Diastolic blood pressure 97 mm[Hg] [facility] 11-28-2024 09:09-0400 Mean blood pressure 115 mm[Hg] [facility] 11-28-2024 09:09-0400 Systolic blood pressure 149 mm[Hg] [facility] 11-28-2024 09:09-0400 Body temperature 98.06 [degF] [facility] 11-28-2024 09:06-0400 Respiratory rate 20 /min [facility] 11-15-2024 13:35-0500 Diastolic blood pressure 93 mm[Hg] [facility] 11-15-2024 13:35-0500 Heart rate 90 /min [facility] 11-15-2024 13:35-0500 Mean blood pressure 106 mm[Hg] [facility] 11-15-2024 13:35-0500 Respiratory rate 14 /min [facility] 11-15-2024 13:35-0500 Systolic blood pressure 131 mm[Hg] [facility] 10-18-2024 08:08-0500 Body temperature 98.24 [degF] [facility] 10-18-2024 08:08-0500 Diastolic blood pressure 88 mm[Hg] [facility] 10-18-2024 08:08-0500 Heart rate 86 /min [facility] 10-18-2024 08:08-0500 Respiratory rate 16 /min [facility] 10-18-2024 08:08-0500 SaO2% (BldA) [Mass fraction] 100 % [facility] 10-18-2024 08:08-0500 Systolic blood pressure 123 mm[Hg] [facility] 09-21-2024 11:17-0500 Body mass index (BMI) [Ratio] 30.12 kg/m2 Christopher Suzie DO Work Phone: [facility] 09-21-2024 11:17-0500 Body weight 84.64 kg Christopher Suzie DO Work Phone: [facility] 09-21-2024 11:17-0500 Diastolic blood pressure 84 mm[Hg] Christopher Suzie DO Work Phone: [facility] 09-21-2024 11:17-0500 Heart rate 80 /min Christopher Suzie DO Work Phone: [facility] 09-21-2024 11:17-0500 SaO2% (BldA) [Mass fraction] 98 % Christopher Suzie DO Work Phone: [facility] 09-21-2024 11:17-0500 Systolic blood pressure 118 mm[Hg] Christopher Suzie DO Work Phone: [facility] 09-15-2024 16:36-0500 Diastolic blood pressure 82 mm[Hg] [facility] 09-15-2024 16:36-0500 Heart rate 55 /min [facility] 09-15-2024 16:36-0500 Respiratory rate 23 /min [facility] 09-15-2024 16:36-0500 SaO2% (BldA) [Mass fraction] 100 % [facility] 09-15-2024 16:36-0500 Systolic blood pressure 147 mm[Hg] [facility] 09-15-2024 13:29-0500 Body height 170.18 cm [facility] 09-15-2024 13:29-0500 Body temperature 98 [degF] [facility] 09-15-2024 13:29-0500 Body weight 89 kg [facility] 09-13-2024 09:40-0500 Body height 170.[address] 09-13-2024 09:40-0500 Body mass index (BMI) [Ratio] 29.44 kg/m2 [address] 09-13-2024 09:40-0500 Body weight 85.[address] 09-13-2024 09:40-0500 Diastolic blood pressure 76 mm[Hg] [address] 09-13-2024 09:40-0500 Systolic blood pressure 118 mm[Hg] [address] 08-08-2024 15:29-0500 Diastolic blood pressure 70 mm[Hg] Aleah Howard MD Work Phone: [facility] 08-08-2024 15:29-0500 Systolic blood pressure 110 mm[Hg] Aleah Howard MD Work Phone: [facility] 08-08-2024 15:28-0500 Body height 170.2 cm Aleah Howard MD Work Phone: [facility] 08-08-2024 15:28-0500 Body mass index (BMI) [Ratio] 29.44 kg/m2 Aleah Howard MD Work Phone: [facility] 08-08-2024 15:28-0500 Body weight 85.28 kg Aleah Howard MD Work Phone: [facility] 08-08-2024 15:28-0500 Heart rate 75 /min Aleah Howard MD Work Phone: [facility] 07-25-2024 15:08-0500 Body mass index (BMI) [Ratio] 28.94 kg/m2 Tevin Carson DO Work Phone: [facility] 07-25-2024 15:08-0500 Body weight 83.8 kg Tevin Carson DO Work Phone: [facility] 07-25-2024 15:08-0500 Diastolic blood pressure 72 mm[Hg] Tevin Henriqueze DO Work Phone: [facility] 07-25-2024 15:08-0500 Heart rate 67 /min Tevin Carson DO Work Phone: [facility] 07-25-2024 15:08-0500 SaO2% (BldA) [Mass fraction] 100 % Tevin Carson DO Work Phone: [facility] 07-25-2024 15:08-0500 Systolic blood pressure 122 mm[Hg] Tevin Henriqueze DO Work Phone: [facility] 07-04-2024 11:01-0400 Body height 170.2 cm Fatuma Tyler APRN.INTERACTIVE MEDIA SPECIALIST Work Phone: [facility] 07-04-2024 11:01-0400 Body mass index (BMI) [Ratio] 28.98 kg/m2 Fatuma Tyler ONCOLOGY PHARMACIST.INTERACTIVE MEDIA SPECIALIST Work Phone: [facility] 07-04-2024 11:01-0400 Body weight 83.92 kg Fatuma Tyler APRN.INTERACTIVE MEDIA SPECIALIST Work Phone: [facility] 07-01-2024 11:01-0400 Body height 170.2 cm Tevin Carson DO Work Phone: [facility] 07-01-2024 11:01-0400 Body mass index (BMI) [Ratio] 29.8 kg/m2 Tevin Carson DO Work Phone: [facility] 07-01-2024 11:01-0400 Body weight 86.3 kg Tevin Carson DO Work Phone: [facility] 07-01-2024 11:01-0400 Diastolic blood pressure 59 mm[Hg] Tevin Carson DO Work Phone: [facility] 07-01-2024 11:01-0400 Heart rate 72 /min Tevin Carson DO Work Phone: [facility] 07-01-2024 11:01-0400 SaO2% (BldA) [Mass fraction] 99 % Tevin Carson DO Work Phone: [facility] 07-01-2024 11:01-0400 Systolic blood pressure 101 mm[Hg] Tevin Carson DO Work Phone: [facility] 03-08-2024 15:02-0400 Diastolic blood pressure 78 mm[Hg] [facility] 03-08-2024 15:02-0400 Heart rate 65 /min Alexis Shukla [facility] 03-08-2024 15:02-0400 Mean blood pressure 89 mm[Hg] Alexis Shulka [facility] 03-08-2024 15:02-0400 SaO2% (BldA) [Mass fraction] 100 % [facility]la [facility] 03-08-2024 15:02-0400 Systolic blood pressure 110 mm[Hg] Alexis Lopeze [facility] 03-08-2024 14:00-0400 SaO2% (BldA) [Mass fraction] 99 % [facility] 03-08-2024 13:37-0400 Body temperature 98.42 [degF] [facility]la [facility] 03-08-2024 13:37-0400 Diastolic blood pressure 82 mm[Hg] Alex[facility] Sh[facility]la [facility] 03-08-2024 13:37-0400 Heart rate 70 /min [facility] Sh[facility]la [facility] 03-08-2024 13:37-0400 Respiratory rate 18 /min Alex[facility]la [facility] 03-08-2024 13:37-0400 SaO2% (BldA) [Mass fraction] 100 % [facility]la [facility] 03-08-2024 13:37-0400 Systolic blood pressure 126 mm[Hg] Alex[facility]la [facility] 03-08-2024 13:14-0400 Body temperature 98.24 [degF] [facility] 03-08-2024 13:14-0400 Diastolic blood pressure 87 mm[Hg] [facility] 03-08-2024 13:14-0400 Heart rate 67 /min [facility] Sh[facility]la [facility] 03-08-2024 13:14-0400 Respiratory rate 16 /min [facility] 03-08-2024 13:14-0400 Systolic blood pressure 135 mm[Hg] [facility] 03-08-2024 08:06-0400 Body height 170.2 cm Elia Baires DO Work Phone: [facility] 03-08-2024 08:06-0400 Body mass index (BMI) [Ratio] 30.9 kg/m2 Elia Baires DO Work Phone: [facility] 03-08-2024 08:06-0400 Body weight 89.5 kg Elia Baires DO Work Phone: [facility] 03-08-2024 08:06-0400 Diastolic blood pressure 72 mm[Hg] Elia Baires DO Work Phone: [facility] 03-08-2024 08:06-0400 Heart rate 82 /min Elia Baires DO Work Phone: [facility] 03-08-2024 08:06-0400 SaO2% (BldA) [Mass fraction] 100 % Elia Baires DO Work Phone: [facility] 03-08-2024 08:06-0400 Systolic blood pressure 114 mm[Hg] Elia Baires DO Work Phone: [facility] 01-04-2024 09:28-0400 Body height 170.2 cm Elia Baires DO Work Phone: [facility] 01-04-2024 09:28-0400 Body mass index (BMI) [Ratio] 31.96 kg/m2 Elia Baires DO Work Phone: [facility] 01-04-2024 09:28-0400 Body weight 92.55 kg Elia Baires DO Work Phone: [facility] 01-04-2024 09:28-0400 Diastolic blood pressure 86 mm[Hg] Elia Baires DO Work Phone: [facility] 01-04-2024 09:28-0400 Heart rate 92 /min Elia Baires DO Work Phone: [facility] 01-04-2024 09:28-0400 SaO2% (BldA) [Mass fraction] 97 % Elia Baires DO Work Phone: [facility] 01-04-2024 09:28-0400 Systolic blood pressure 123 mm[Hg] Elia Baires DO Work Phone: [facility] 12-31-2023 11:17-0400 Heart rate 76 /min DO Jennie Durand Work Phone: [facility] 12-31-2023 11:14-0400 Body temperature 98.2 [degF] DO Jennie Durand Work Phone: [facility] 12-31-2023 11:14-0400 Diastolic blood pressure 73 mm[Hg] DO Jennie Durand Work Phone: [facility] 12-31-2023 11:14-0400 Respiratory rate 18 /min DO Jennie Durand Work Phone: [facility] 12-31-2023 11:14-0400 SaO2% (BldA) [Mass fraction] 97 % DO Jennie Durand Work Phone: [facility] 12-31-2023 11:14-0400 Systolic blood pressure 138 mm[Hg] DO Jennie Durand Work Phone: [facility] 12-31-2023 11:13-0400 Body height 170.18 cm DO Jennie Durand Work Phone: [facility] 12-31-2023 11:13-0400 Body weight 89.35 kg DO Jennie Durand Work Phone: [facility] 12-24-2023 11:58-0400 Body height 170.18 cm DO Jennie Durand Work Phone: [facility] 12-24-2023 11:58-0400 Body temperature 97.8 [degF] DO Jennie Durand Work Phone: [facility] 12-24-2023 11:58-0400 Body weight 89 kg DO Jennie Durand Work Phone: [facility] 12-24-2023 11:58-0400 Diastolic blood pressure 91 mm[Hg] DO Jennie Durand Work Phone: [facility] 12-24-2023 11:58-0400 Heart rate 85 /min DO Jennie Durand Work Phone: [facility] 12-24-2023 11:58-0400 Respiratory rate 15 /min DO Jennie Durand Work Phone: [facility] 12-24-2023 11:58-0400 SaO2% (BldA) [Mass fraction] 100 % DO Jennie Durand Work Phone: [facility] 12-24-2023 11:58-0400 Systolic blood pressure 137 mm[Hg] DO Jennie Durand Work Phone: [facility] 12-10-2023 12:35-0400 Heart rate 70 /min DO Jennie Durand Work Phone: [facility] 12-10-2023 12:35-0400 Respiratory rate 16 /min DO Jennie Durand Work Phone: [facility] 12-10-2023 12:35-0400 SaO2% (BldA) [Mass fraction] 98 % DO Jennie Durand Work Phone: [facility] 12-10-2023 12:08-0400 Body height 170.18 cm DO Jennie Durand Work Phone: [facility] 12-10-2023 12:08-0400 Body temperature 98 [degF] DO Jennie Durand Work Phone: [facility] 12-10-2023 12:08-0400 Body weight 89.8 kg DO Jennie Durand Work Phone: [facility] 12-10-2023 12:08-0400 Diastolic blood pressure 76 mm[Hg] DO Jennie Durand Work Phone: [facility] 12-10-2023 12:08-0400 Systolic blood pressure 123 mm[Hg] DO Jennie Durand Work Phone: [facility] 09-18-2023 08:49-0500 Diastolic blood pressure 72 mm[Hg] Gamaliel Vickers DO Work Phone: [facility] 09-18-2023 08:49-0500 Heart rate 58 /min Gamaliel Vickers DO Work Phone: [facility] [employer] 09-18-2023 08:49-0500 Respiratory rate 18 /min Gamaliel Vickers DO Work Phone: [facility] [employer] 09-18-2023 08:49-0500 SaO2% (BldA) [Mass fraction] 100 % Gamaliel Vickers DO Work Phone: [facility] [employer] 09-18-2023 08:49-0500 Systolic blood pressure 111 mm[Hg] Gamaliel Vickers DO Work Phone: [facility] [employer] 09-18-2023 08:24-0500 Body temperature 97.11 [degF] Gamaliel Vickers DO Work Phone: [facility] [employer] 09-18-2023 07:23-0500 Body height 170.2 cm Gamaliel Vickers DO Work Phone: [facility] [employer] 09-18-2023 07:23-0500 Body mass index (BMI) [Ratio] 31.79 kg/m2 Gamaliel Vickers DO Work Phone: [facility] [employer] 09-18-2023 07:23-0500 Body weight 92.08 kg Gamaliel Vickers DO [facility] 08-15-2023 13:37-0500 Diastolic blood pressure 69 mm[Hg] DO Jennie Durand Work Phone: [facility] 08-15-2023 13:37-0500 Heart rate 70 /min DO Jennie Durand Work Phone: [facility] 08-15-2023 13:37-0500 Respiratory rate 18 /min DO Jennie Durand Work Phone: [facility] 08-15-2023 13:37-0500 SaO2% (BldA) [Mass fraction] 99 % DO Jennie Durand Work Phone: [phone] [place] [address] 08-15-2023 13:37-0500 Systolic blood pressure 107 mm[Hg] DO Jennie Durand Work Phone: [facility] 08-15-2023 11:29-0500 Body height 170.18 cm DO Jennie Durand Work Phone: [facility] 08-15-2023 11:29-0500 Body temperature 98.2 [degF] DO Jennie Durand Work Phone: [facility] 08-15-2023 11:29-0500 Body weight 86.18 kg DO Jennie Durand Work Phone: [phone])[phone] [place] [address] 08-14-2023 16:43-0500 Body height 170.18 cm DO Jennie Durand Work Phone: [facility] 08-14-2023 16:43-0500 Body temperature 98.2 [degF] DO Jennie Durand Work Phone: [facility] 08-14-2023 16:43-0500 Body weight 88.6 kg DO Jennie Duradn Work Phone: [facility] 08-14-2023 16:43-0500 Diastolic blood pressure 66 mm[Hg] DO Jennie Durand Work Phone: [facility] 08-14-2023 16:43-0500 Heart rate 80 /min DO Jennie Durand Work Phone: [facility] 08-14-2023 16:43-0500 Respiratory rate 18 /min DO Jennie Durand Work Phone: [facility] 08-14-2023 16:43-0500 SaO2% (BldA) [Mass fraction] 98 % DO Jennie Durand Work Phone: [facility] 08-14-2023 16:43-0500 Systolic blood pressure 118 mm[Hg] DO Jennie Durand Work Phone: [facility] 08-13-2023 11:15-0500 Body height 170.18 cm Imad Asaad Other [employer] Other 08-13-2023 11:15-0500 Body mass index (BMI) [Ratio] 30.54 kg/m2 Imad Asaad Other [employer] Other 08-13-2023 11:15-0500 Body weight 88.45 kg Imad Asaad Other [employer] Other 08-13-2023 11:15-0500 Diastolic blood pressure 84 mm[Hg] Imad Asaad Other [employer] Other 08-13-2023 11:15-0500 Systolic blood pressure 133 mm[Hg] Imad Asaad Other [employer] Other 07-08-2023 12:05-0400 Body height 170.18 cm Ania Javed Other [employer] Other 07-08-2023 12:05-0400 Body mass index (BMI) [Ratio] 30.22 kg/m2 Ania Shipleymond Other [employer] Other 07-08-2023 12:05-0400 Body temperature 99 [degF] Ania Tegan Other [employer] Other 07-08-2023 12:05-0400 Body weight 87.54 kg Ania Tegan Other [employer] Other 07-08-2023 12:05-0400 Diastolic blood pressure 64 mm[Hg] Ania Tegan Other [employer] Other 07-08-2023 12:05-0400 Respiratory rate 19 /min Ania Javed Other [employer] Other 07-08-2023 12:05-0400 SaO2% (BldA) [Mass fraction] 98 % Ania Javed Other [facility] [employer] Other 07-08-2023 12:05-0400 Systolic blood pressure 110 mm[Hg] Ania Javed Other [facility] [employer] Other 07-03-2023 11:05-0400 Diastolic blood pressure 80 mm[Hg] DO Jennie Durand Work Phone: [facility] 07-03-2023 11:05-0400 Heart rate 78 /min DO Jennie Durand Work Phone: [facility] 07-03-2023 11:05-0400 Respiratory rate 16 /min DO Jennie Durand Work Phone: [facility] 07-03-2023 11:05-0400 SaO2% (BldA) [Mass fraction] 99 % DO Jennie Durand Work Phone: [facility] 07-03-2023 11:05-0400 Systolic blood pressure 119 mm[Hg] DO Jennie Durand Work Phone: [facility] 07-03-2023 10:10-0400 Body height 170.18 cm DO Jennie Durand Work Phone: [facility] 07-03-2023 10:10-0400 Body temperature 98.7 [degF] DO Jennie Durand Work Phone: [facility] 07-03-2023 10:10-0400 Body weight 86.9 kg DO Jennie Durand Work Phone: [facility] 07-02-2023 14:06-0400 Body temperature 98.06 [degF] Bakari [facility] 07-02-2023 14:06-0400 Diastolic blood pressure 78 mm[Hg] Bakari Hen[facility] 07-02-2023 14:06-0400 Heart rate 91 /min Bakari Henrik [facility] 07-02-2023 14:06-0400 Respiratory rate 18 /min Bakari Henrik [facility] 07-02-2023 14:06-0400 SaO2% (BldA) [Mass fraction] 100 % Bakari Henrik [facility] 07-02-2023 14:06-0400 Systolic blood pressure 121 mm[Hg] Bakari Henrik [facility] 01-15-2023 13:30-0400 Diastolic blood pressure 85 mm[Hg] Bakari Henrik [facility] 01-15-2023 13:30-0400 Heart rate 71 /min Bakari Henrik [facility] 01-15-2023 13:30-0400 Mean blood pressure 98 mm[Hg] Bakari Henrik [facility] 01-15-2023 13:30-0400 Respiratory rate 18 /min Bakari Henrik [facility] 01-15-2023 13:30-0400 SaO2% (BldA) [Mass fraction] 100 % Bakari Henrik [facility] 01-15-2023 13:30-0400 Systolic blood pressure 125 mm[Hg] Bakari Henrik [facility] 01-15-2023 12:30-0400 Diastolic blood pressure 99 mm[Hg] Bakari Henrik [facility] 01-15-2023 12:30-0400 Heart rate 78 /min Bak[facility] 01-15-2023 12:30-0400 Mean blood pressure 107 mm[Hg] Bakari Henrik [facility] 01-15-2023 12:30-0400 Respiratory rate 18 /min Bakari Henrik [facility] 01-15-2023 12:30-0400 SaO2% (BldA) [Mass fraction] 100 % Bakari [facility] 01-15-2023 12:30-0400 Systolic blood pressure 122 mm[Hg] Bakari [facility] 01-15-2023 10:50-0400 Body temperature 98.42 [degF] [facility] 01-15-2023 10:50-0400 Diastolic blood pressure 74 mm[Hg] Bakari [facility] 01-15-2023 10:50-0400 Heart rate 77 /min [facility] 01-15-2023 10:50-0400 Mean blood pressure 92 mm[Hg] Bakari [facility] 01-15-2023 10:50-0400 Respiratory rate 17 /min [facility] 01-15-2023 10:50-0400 SaO2% (BldA) [Mass fraction] 99 % Bakari [facility] 01-15-2023 10:50-0400 Systolic blood pressure 129 mm[Hg] Bakari Henrik [facility] 12-05-2022 13:20-0400 Diastolic blood pressure 74 mm[Hg] Gal Das [facility] 12-05-2022 13:20-0400 Heart rate 58 /min Gal Das [facility] 12-05-2022 13:20-0400 Respiratory rate 18 /min Gal Das [facility] 12-05-2022 13:20-0400 SaO2% (BldA) [Mass fraction] 100 % Gal Das [facility] 12-05-2022 13:20-0400 Systolic blood pressure 110 mm[Hg] Gal Das [facility] 12-05-2022 12:00-0400 Heart rate 54 /min Gal Das [facility] 12-05-2022 12:00-0400 SaO2% (BldA) [Mass fraction] 100 % Gal Das [facility] 12-05-2022 11:59-0400 Diastolic blood pressure 72 mm[Hg] Gal Das [facility] 12-05-2022 11:59-0400 Mean blood pressure 84 mm[Hg] Gal Das [facility] 12-05-2022 11:59-0400 Systolic blood pressure 109 mm[Hg] Gal Das [facility] 12-05-2022 11:53-0400 Body temperature 97.52 [degF] Gal Das [facility] 12-05-2022 11:53-0400 Diastolic blood pressure 73 mm[Hg] Gal Das [facility] 12-05-2022 11:53-0400 Heart rate 59 /min Gal Das [facility] 12-05-2022 11:53-0400 Mean blood pressure 87 mm[Hg] Gal Das [facility] 12-05-2022 11:53-0400 Respiratory rate 14 /min Gal Das [facility] 12-05-2022 11:53-0400 SaO2% (BldA) [Mass fraction] 100 % Gal Das [facility] 12-05-2022 11:53-0400 Systolic blood pressure 115 mm[Hg] Gal Das [facility] 12-05-2022 11:40-0400 Mean blood pressure 80 mm[Hg] Gal Das [facility] 12-05-2022 11:40-0400 Respiratory rate 18 /min Gal Das [facility] 12-05-2022 11:30-0400 Mean blood pressure 90 mm[Hg] Gal Das [facility] 12-05-2022 11:15-0400 Body temperature 97.34 [degF] Gal Das [facility] 12-05-2022 11:10-0400 Respiratory rate 18 /min Gal Das [facility] 12-05-2022 11:05-0400 Respiratory rate 21 /min Gal Das [facility] 12-05-2022 11:00-0400 Respiratory rate 11 /min Gal Das [facility] 12-05-2022 07:15-0400 Mean blood pressure 79 mm[Hg] Gal Das [facility] 12-05-2022 07:15-0400 Body temperature 97.88 [degF] Gal Das [facility] 12-05-2022 07:15-0400 Heart rate 72 /min Gal Das [facility] 12-05-2022 07:12-0400 Mean blood pressure 82 mm[Hg] Gal Das [facility] 11-21-2022 10:44-0500 Diastolic blood pressure 75 mm[Hg] Gal Das [facility] 11-21-2022 10:44-0500 Heart rate 67 /min Gal Das [facility] 11-21-2022 10:44-0500 Mean blood pressure 88 mm[Hg] Gal Das [facility] 11-21-2022 10:44-0500 Systolic blood pressure 112 mm[Hg] Gal Das [facility] 11-21-2022 10:44-0500 Heart rate 71 /min Gal Das [facility] 11-21-2022 10:44-0500 SaO2% (BldA) [Mass fraction] 100 % Gal Das [facility] 11-21-2022 10:43-0500 Diastolic blood pressure 79 mm[Hg] Gal Das [facility] 11-21-2022 10:43-0500 Mean blood pressure 91 mm[Hg] Gal Das [facility] 11-21-2022 10:43-0500 Systolic blood pressure 116 mm[Hg] Gal Das [facility] 11-21-2022 10:43-0500 Respiratory rate 16 /min Gal Das [facility] 11-20-2022 08:09-0500 Body height 170.2 cm Eileen Alvarez MD Work Phone: [facility] 11-20-2022 08:09-0500 Body weight 85.73 kg Eileen Alvarez MD Work Phone: [facility] 11-20-2022 08:09-0500 Diastolic blood pressure 81 mm[Hg] Eileen Alvarez MD Work Phone: [facility] 11-20-2022 08:09-0500 Heart rate 67 /min Eileen Alvarez MD Work Phone: [facility] 11-20-2022 08:09-0500 SaO2% (BldA) [Mass fraction] 100 % Eileen Alvarez MD Work Phone: [facility] 11-20-2022 08:09-0500 Systolic blood pressure 137 mm[Hg] Eileen Alvarez MD Work Phone: [facility] 11-03-2022 12:57-0500 Blood Pressure Location Nakia Charisse [facility] 11-03-2022 12:57-0500 Body temperature 98.24 [degF] Nakia Mcqueen [facility] 11-03-2022 12:57-0500 Diastolic blood pressure 80 mm[Hg] Nakia Mcqueen [facility] 11-03-2022 12:57-0500 Heart rate 85 /min Nakia Mcqueen [facility] 11-03-2022 12:57-0500 SaO2% (BldA) [Mass fraction] 98 % Nakia Mcqueen [facility] 11-03-2022 12:57-0500 Systolic blood pressure 104 mm[Hg] Nakia Mcqueen [facility] 09-24-2022 06:57-0500 Blood Pressure Location Aimee Walker [address] [place] [address] Care 09-24-2022 06:57-0500 Body temperature 98.24 [degF] Aimee Walker [facility] 09-24-2022 06:57-0500 Diastolic blood pressure 64 mm[Hg] Aimee Walker [facility] 09-24-2022 06:57-0500 Heart rate 77 /min Aimee Walker [facility] 09-24-2022 06:57-0500 SaO2% (BldA) [Mass fraction] 99 % Aimee Walker [facility] 09-24-2022 06:57-0500 Systolic blood pressure 118 mm[Hg] Aimee Valadezell [facility] 08-22-2022 10:31-0500 Blood Pressure Location [facility] 08-22-2022 10:31-0500 Body temperature 98.06 [degF] [facility] 08-22-2022 10:31-0500 Diastolic blood pressure 76 mm[Hg] [facility] 08-22-2022 10:31-0500 Heart rate 95 /min [facility] 08-22-2022 10:31-0500 SaO2% (BldA) [Mass fraction] 98 % [facility] 08-22-2022 10:31-0500 Systolic blood pressure 110 mm[Hg] [facility] 08-19-2022 09:45-0500 Diastolic blood pressure 69 mm[Hg] DO Jennie Durand Work Phone: [facility] 08-19-2022 09:45-0500 Heart rate 82 /min DO Jennie Durand Work Phone: [facility] 08-19-2022 09:45-0500 Respiratory rate 16 /min DO Jennie Durand Work Phone: [facility] 08-19-2022 09:45-0500 SaO2% (BldA) [Mass fraction] 95 % DO Jennie Hameede Work Phone: [facility] 08-19-2022 09:45-0500 Systolic blood pressure 104 mm[Hg] DO Jennie Durand Work Phone: [facility] 08-19-2022 07:41-0500 Body height 170.18 cm DO Jennie Durand Work Phone: [facility] 08-19-2022 07:41-0500 Body weight 83.6 kg DO Jennie Hameede Work Phone: [facility] 08-18-2022 17:26-0500 Body temperature 98.06 [degF] Alexis Shukla [facility] 08-18-2022 17:26-0500 Diastolic blood pressure 83 mm[Hg] Alexis Lopeze [facility] 08-18-2022 17:26-0500 Heart rate 84 /min Alexis Lopeze [facility] 08-18-2022 17:26-0500 Respiratory rate 18 /min Alexis Shukla [facility] 08-18-2022 17:26-0500 SaO2% (BldA) [Mass fraction] 98 % Alexis Shukla [facility] 08-18-2022 17:26-0500 Systolic blood pressure 120 mm[Hg] Alexis Vazquez [facility] 08-12-2022 15:50-0500 Body temperature 97.9 [degF] DO Jennei Hameede Work Phone: [facility] 08-12-2022 15:50-0500 Diastolic blood pressure 83 mm[Hg] DO Jennie Durand Work Phone: [facility] 08-12-2022 15:50-0500 Heart rate 64 /min DO Jennie Durand Work Phone: [facility] 08-12-2022 15:50-0500 Respiratory rate 20 /min DO Jennie Durand Work Phone: [facility] 08-12-2022 15:50-0500 SaO2% (BldA) [Mass fraction] 100 % DO Jennie Durand Work Phone: [facility] 08-12-2022 15:50-0500 Systolic blood pressure 136 mm[Hg] DO Jennie Durand Work Phone: [facility] 08-12-2022 11:00-0500 Body height 170.18 cm DO Jennie Durand Work Phone: [facility] 08-12-2022 06:00-0500 Body weight 88.1 kg DO Jennie Durand Work Phone: [facility] 08-08-2022 10:30-0500 Diastolic blood pressure 76 mm[Hg] Bakari [facility] 08-08-2022 10:30-0500 Heart rate 58 /min Bakari [facility] 08-08-2022 10:30-0500 Mean blood pressure 88 mm[Hg] Bakari [facility] 08-08-2022 10:30-0500 Respiratory rate 20 /min Bakari [facility] 08-08-2022 10:30-0500 SaO2% (BldA) [Mass fraction] 100 % Bakari [facility] 08-08-2022 10:30-0500 Systolic blood pressure 112 mm[Hg] Bakari [facility] 08-08-2022 10:00-0500 Diastolic blood pressure 86 mm[Hg] Bakari [facility] 08-08-2022 10:00-0500 Heart rate 64 /min Bakari [facility] 08-08-2022 10:00-0500 Mean blood pressure 97 mm[Hg] Bakari [facility] 08-08-2022 10:00-0500 Systolic blood pressure 120 mm[Hg] Bakari [facility] 08-08-2022 09:13-0500 gluc 98 mg/dL Bakari [facility] 08-08-2022 09:13-0500 gluc [facility] 08-08-2022 09:06-0500 Body temperature 97.7 [degF] [facility] 08-08-2022 09:06-0500 Diastolic blood pressure 87 mm[Hg] Bakari [facility] 08-08-2022 09:06-0500 Heart rate 79 /min [facility] 08-08-2022 09:06-0500 Respiratory rate 18 /min [facility] 08-08-2022 09:06-0500 SaO2% (BldA) [Mass fraction] 100 % Bakari [facility] 08-08-2022 09:06-0500 Systolic blood pressure 127 mm[Hg] Bakari [facility] 07-21-2022 10:50-0500 Blood Pressure Location Aimee Walker [facility] 07-21-2022 10:50-0500 Body temperature 97.7 [degF] Aimee Valadezell [facility] 07-21-2022 10:50-0500 Diastolic blood pressure 72 mm[Hg] Aimee Walker [facility] 07-21-2022 10:50-0500 Heart rate 74 /min Aimee Walker [facility] 07-21-2022 10:50-0500 SaO2% (BldA) [Mass fraction] 99 % Aimee Walker [facility] 07-21-2022 10:50-0500 Systolic blood pressure 128 mm[Hg] Aimee Walker [facility] 05-13-2022 10:09-0400 Diastolic blood pressure 74 mm[Hg] Alexis Rivers [facility] 05-13-2022 10:09-0400 Heart rate 68 /min Alexis Rivers [facility] [place] 05-13-2022 10:09-0400 Systolic blood pressure 112 mm[Hg] Alexis Rivers [facility] 04-21-2022 09:39-0400 Blood Pressure Location Aimee Valadezell [facility] 04-21-2022 09:39-0400 Body temperature 98.24 [degF] Aimee Walker [facility] 04-21-2022 09:39-0400 Diastolic blood pressure 72 mm[Hg] Aimee Walker [facility] 04-21-2022 09:39-0400 Heart rate 94 /min Aimee Walker [facility] 04-21-2022 09:39-0400 SaO2% (BldA) [Mass fraction] 100 % Aimee Walker [facility] 04-21-2022 09:39-0400 Systolic blood pressure 112 mm[Hg] Aimee Walker [facility] 04-20-2022 14:56-0400 Body temperature 98.24 [degF] [facility] 04-20-2022 14:56-0400 Diastolic blood pressure 72 mm[Hg] [facility] 04-20-2022 14:56-0400 Heart rate 69 /min [facility] 04-20-2022 14:56-0400 Respiratory rate 18 /min [facility] 04-20-2022 14:56-0400 SaO2% (BldA) [Mass fraction] 99 % [facility] 04-20-2022 14:56-0400 Systolic blood pressure 111 mm[Hg] [facility] 04-03-2022 19:17-0400 Hourly Rounding Kaylinn Dokken [facility] 04-03-2022 19:17-0400 Promise to Return Kaylinn Dokken [facility] 04-03-2022 19:15-0400 Diastolic blood pressure 71 mm[Hg] Kaylinn Dokken [facility] 04-03-2022 19:15-0400 Heart rate 63 /min Kaylinn Dokken [facility] 04-03-2022 19:15-0400 Mean blood pressure 82 mm[Hg] Kaylinn Dokken [facility] 04-03-2022 19:15-0400 Respiratory rate 18 /min Kaylinn Dokken [facility] 04-03-2022 19:15-0400 SaO2% (BldA) [Mass fraction] 100 % Kaylinn Dokken [facility] 04-03-2022 19:15-0400 Systolic blood pressure 105 mm[Hg] Kaylinn Dokken [facility] 04-03-2022 17:09-0400 Body temperature 98.06 [degF] Kaylinn Dokken [facility] 04-03-2022 17:09-0400 Diastolic blood pressure 83 mm[Hg] Kaylinn Dokken [facility] 04-03-2022 17:09-0400 Heart rate 87 /min Kaylinn Dokken [facility] 04-03-2022 17:09-0400 Respiratory rate 18 /min Kaylinn Dokken [facility] 04-03-2022 17:09-0400 SaO2% (BldA) [Mass fraction] 99 % Kaylinn Dokken [facility] 04-03-2022 17:09-0400 Systolic blood pressure 119 mm[Hg] Kaylinn Dokken [facility] 02-06-2022 09:06-0400 Blood Pressure Location Aimee Walker [facility] 02-06-2022 09:06-0400 Body temperature 97.52 [degF] Aimee Walker [facility] 02-06-2022 09:06-0400 Diastolic blood pressure 72 mm[Hg] Aimee Walker [facility] 02-06-2022 09:06-0400 Heart rate 81 /min Aimee Walker [facility] 02-06-2022 09:06-0400 SaO2% (BldA) [Mass fraction] 100 % Aimee Walker [facility] 02-06-2022 09:06-0400 Systolic blood pressure 130 mm[Hg] Aimee Walker [facility] 01-29-2022 10:31-0400 Blood Pressure Location Aimee Walker [facility] 01-29-2022 10:31-0400 Body temperature 97.16 [degF] Aimee Walker [facility] 01-29-2022 10:31-0400 Diastolic blood pressure 76 mm[Hg] Aimee Walker [facility] 01-29-2022 10:31-0400 Heart rate 94 /min Aimee Walker [facility] 01-29-2022 10:31-0400 SaO2% (BldA) [Mass fraction] 98 % Aimee Walker [facility] 01-29-2022 10:31-0400 Systolic blood pressure 118 mm[Hg] Aimee Walker [facility] 02-01-2021 07:15-0400 Body temperature 97.7 [degF] Berry Lawson MD Work Phone: [employer] Work Phone: 02-01-2021 07:15-0400 Diastolic blood pressure 63 mm[Hg] Berry Lawson MD Work Phone: [employer] Work Phone: 02-01-2021 07:15-0400 Heart rate 82 /min Berry Lawson MD Work Phone: [employer] Work Phone: 02-01-2021 07:15-0400 Respiratory rate 18 /min Berry Lawson MD Work Phone: [employer] Work Phone: 02-01-2021 07:15-0400 SaO2% (BldA) [Mass fraction] 98 % Berry Lawson MD Work Phone: [employer] Work Phone: 02-01-2021 07:15-0400 Systolic blood pressure 110 mm[Hg] Berry Lawson MD Work Phone: [employer] Work Phone: 01-30-2021 16:54-0400 Body height 170.2 cm Berry Lawson MD Work Phone: [employer] Work Phone: 01-30-2021 16:54-0400 Body mass index (BMI) [Ratio] 38.53 kg/m2 Berry Lawson MD Work Phone: [employer] Work Phone: 01-30-2021 16:54-0400 Body weight 111.58 kg Berry Lawson MD Work Phone: [employer] Work Phone: 01-30-2021 14:27-0400 Diastolic blood pressure 66 mm[Hg] David Nash MD Work Phone: [employer] Work Phone: 01-30-2021 14:27-0400 Heart rate 93 /min David Nash MD Work Phone: [employer] Work Phone: 01-30-2021 14:27-0400 Respiratory rate 16 /min David Nash MD Work Phone: [employer] Work Phone: 01-30-2021 14:27-0400 SaO2% (BldA) [Mass fraction] 98 % David Nash MD Work Phone: [employer] Work Phone: 01-30-2021 14:27-0400 Systolic blood pressure 107 mm[Hg] David Nash MD Work Phone: [employer] Work Phone: 01-30-2021 09:51-0400 Body temperature 97.2 [degF] David Nash MD Work Phone: [employer] Work Phone: 01-26-2021 09:00-0400 Body temperature 98.2 [degF] Gamaliel Vickers DO Work Phone: [employer] Work Phone: 01-26-2021 09:00-0400 Diastolic blood pressure 77 mm[Hg] Gamaliel Vickers DO Work Phone: [employer] Work Phone: 01-26-2021 09:00-0400 Heart rate 90 /min Gamaliel Vickers DO Work Phone: [employer] Work Phone: 01-26-2021 09:00-0400 Respiratory rate 16 /min Gamaliel Vickers DO Work Phone: [employer] Work Phone: 01-26-2021 09:00-0400 SaO2% (BldA) [Mass fraction] 96 % Gamaliel Vickers DO Work Phone: [employer] Phone: 01-26-2021 09:00-0400 Systolic blood pressure 111 mm[Hg] Gamaliel Vickers DO Work Phone: [employer] Work Phone: 01-08-2021 07:35-0400 Body temperature 97.81 [degF] Gamaliel Vickers [employer] Work Phone: [employer] Work Phone: 01-08-2021 07:35-0400 SaO2% (BldA) [Mass fraction] 97 % Gamaliel Vickers [employer] Work Phone: [employer] Work Phone: 01-08-2021 07:29-0400 Diastolic blood pressure 77 mm[Hg] Gamaliel Vickers DO Work Phone: [employer] Work Phone: 01-08-2021 07:29-0400 Heart rate 87 /min Gamaliel Vickers DO Work Phone: [employer] Work Phone: 01-08-2021 07:29-0400 Respiratory rate 18 /min Gamaliel Vickers [employer] Work Phone: [employer] Phone: 01-08-2021 07:29-0400 Systolic blood pressure 123 mm[Hg] Gamaliel Vickers [employer] Work Phone: [employer] Phone: 01-07-2021 06:29-0400 Body height 170.2 cm Gamaliel [employer] Phone: [employer] Phone: 01-07-2021 06:29-0400 Body mass index (BMI) [Ratio] 40.68 kg/m2 Gamaliel Vickers [employer] Phone: [employer] Phone: 01-07-2021 06:29-0400 Body weight 117.8 kg Gamaliel Vickers [employer] Phone: [employer] Phone: 12-24-2020 10:33-0400 Body height 170.2 cm [facility] [employer] Phone: 12-24-2020 10:33-0400 Body mass index (BMI) [Ratio] 42.76 kg/m2 [facility] [employer] Phone: 12-24-2020 10:33-0400 Body temperature 97.7 [degF] [facility] [employer] Phone: 12-24-2020 10:33-0400 Body weight 123.83 kg [facility] [employer] Phone: 12-24-2020 10:33-0400 Diastolic blood pressure 76 mm[Hg] [facility] [employer] Phone: 12-24-2020 10:33-0400 Heart rate 71 /min [facility] [employer] Phone: 12-24-2020 10:33-0400 Respiratory rate 18 /min [facility] [employer] Phone: 12-24-2020 10:33-0400 SaO2% (BldA) [Mass fraction] 98 % St 2 [facility] Work Phone: 12-24-2020 10:33-0400 Systolic blood pressure 115 mm[Hg] [facility]: 09-28-2020 08:40-0500 BP Diastolic 75 mm[Hg] Gamaliel [facility] [place] 09-28-2020 08:40-0500 BP Systolic 117 mm[Hg] [place] 09-28-2020 08:40-0500 Pulse (Heart Rate) 84 /min Gamaliel [place] 09-28-2020 08:40-0500 Pulse Oximetry 100 % [place] 09-28-2020 08:25-0500 Body Temperature 96.8 [degF] [place] 09-28-2020 08:25-0500 Respiratory Rate 23 /min [place] 09-28-2020 07:07-0500 BMI (Body Mass Index) 45.66 kg/m2 [place] 09-28-2020 07:07-0500 Body weight 132.22 kg [place], [place] 09-28-2020 07:07-0500 Height 170.2 cm [place] Encounters Encounter Date Encounter Type Care Provider Facility Start: 04-26-2025 End: 04-26-2025 Patient encounter procedure Aaliyah Zamudio [facility] Work Phone: Start: 04-26-2025 End: 04-26-2025 ambulatory Lindy Keen APRN Work Phone: [facility] Work Phone: Start: 04-25-2025 End: 04-25-2025 ambulatory [facility] Facility:[facility] Start: 04-20-2025 ambulatory Lindy Keen Facility :[facility] Start: 04-20-2025 [facility] Start: 04-13-2025 End: 04-13-2025 Office outpatient new 60 minutes Aaliyah H Robb DO Work Phone: [facility] Comment on above: 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); Hypertrophy of breast Start: 04-13-2025 End: 04-13-2025 ambulatory AALIYAH H ROBB Not Available Start: 04-09-2025 End: 04-09-2025 Office outpatient visit 25 minutes Shazia Elise BOX FABRICATOR Work Phone: [facility] Comment on above: Acute pharyngitis, u nspecified etiology (Primary Dx); Pharyngitis, unspecified etiology Start: 04-09-2025 End: 04-09-2025 ambulatory SHAZIA ELISE Not Available Start: 03-29-2025 End: 03-29-2025 ambulatory Sami GarciaEusebio Brewster Facility:[facility] Start: 03-16-2025 End: 03-17-2025 Pre-admission assessment Jak Moshe Peace [facility] Start: 03-13-2025 End: 03-13-2025 ambulatory Jak [facility] Facility:[facility] Start: 03-09-2025 End: 03-09-2025 ambulatory Jennie Durand Facility:[facility] Start: 03-09-2025 End: 03-09-2025 Patient encounter procedure Babar Mayers [facility] Start: 03-03-2025 End: 03-03-2025 ambulatory Babar Mayers Facility:[facility] Start: 03-03-2025 End: 03-03-2025 Pain Management Babar Mayers [facility] Start: 03-02-2025 End: 03-02-2025 ambulatory MARII RICK Facility:[facility] Start: 03-02-2025 End: 03-02-2025 Patient encounter procedure MARII RICK [facility] Start: 02-17-2025 End: 02-17-2025 Emergency department patient visit Bryan Avila [facility] Start: 02-16-2025 End: 02-16-2025 ambulatory Jak Peace Facility:[facility] Start: 02-16-2025 End: 02-16-2025 Patient encounter procedure Jak Peace [facility] Start: 02-16-2025 End: 02-16-2025 ambulatory MOLLY GREGORIO Facility:[facility] Start: 02-16-2025 End: 02-16-2025 Patient encounter procedure Jak Peace [facility] Start: 02-11-2025 End: 02-13-2025 Refill Tevin Carson DO Work Phone: [facility] Comment on above: Refill Request Start: 02-09-2025 End: 02-09-2025 ambulatory Fernandez Daniels Facility:[facility] Start: 02-09-2025 End: 02-09-2025 Patient encounter procedure MOLLY GREGORIO [facility] Start: 02-03-2025 End: 02-18-2025 Pre-admission assessment Babar Mayers [facility] Start: 02-03-2025 End: 02-03-2025 ambulatory MOLLY GREGORIO Facility:[facility] Start: 01-27-2025 End: 01-27-2025 ambulatory Orlando Kate Facility:[facility] Start: 01-27-2025 End: 01-27-2025 Patient encounter procedure Orlando Kate [facility] Start: 01-24-2025 End: 01-24-2025 ambulatory Babar Mayers Facility:[facility] Start: 01-24-2025 End: 01-24-2025 Pain Management Babar Myaers [facility] Start: 01-19-2025 End: 01-20-2025 Pre-admission assessment Orlando Kate [facility] Start: 01-13-2025 End: 01-13-2025 ambulatory Orlando Kate Facility:[facility] Start: 01-13-2025 End: 01-13-2025 Patient encounter procedure Orlando Kate [facility] Start: 12-16-2024 End: 12-16-2024 Patient encounter procedure [facility] [address] [place] Work Phone: Start: 12-16-2024 End: 12-16-2024 ambulatory NON STAFF [facility] Work Phone: Start: 12-14-2024 End: 12-15-2024 ambulatory David Zazueta Facility:[facility] Start: 12-14-2024 End: 12-15-2024 Patient encounter procedure David Zazueta [facility] Start: 12-12-2024 End: 12-12-2024 Patient encounter procedure [facility] [address] Work Phone: Start: 12-12-2024 End: 12-12-2024 ambulatory NON STAFF [facility] Work Phone: Start: 11-29-2024 End: 11-30-2024 ambulatory Jennie Durand Facility:[facility] Start: 11-28-2024 End: 11-28-2024 ambulatory Babar Mayers Facility:[facility] Start: 11-28-2024 End: 11-28-2024 Pain Management Babar Mayers [facility] Start: 11-18-2024 End: 11-18-2024 ambulatory KURT A ESHA Facility[facility] Start: 11-15-2024 End: 11-15-2024 ambulatory Orlando Kate Facility:[facility] Start: 11-15-2024 End: 11-15-2024 Patient encounter procedure Orlando Kate [facility] Start: 11-11-2024 End: 11-11-2024 ambulatory David Zazueta Facility:[facility] Start: 11-11-2024 End: 11-11-2024 Patient encounter procedure David Silvestre Roderickmoshe [facility] Start: 11-02-2024 End: 11-02-2024 Patient encounter procedure Jennie Durand [facility] Start: 11-02-2024 End: 01-11-2025 ambulatory Jennie Durand Facility:[facility] Start: 11-01-2024 End: 11-11-2024 Pre-admission assessment Jennie Durand [facility] Start: 10-18-2024 End: 10-18-2024 Emergency department patient visit Jose Correia [facility] Start: 10-17-2024 End: 10-17-2024 ambulatory [facility] Start: 10-17-2024 End: 10-17-2024 Patient encounter procedure Melissa Gold MA [facility] Comment on above: Population Health Na vigation Outreach (Mauricio Phan) Start: 10-14-2024 End: 10-14-2024 ambulatory KURT A ESHA [facility] [place] [facility] Start: 09-30-2024 End: 09-30-2024 ambulatory KURT A ESHA [facility] [place] [facility] Start: 09-27-2024 End: 09-27-2024 Bamboo flowsheet Christopher Suzie DO Work Phone: [facility] Start: 09-27-2024 End: 09-27-2024 Bamboo flowsheet Christopher Suzie DO Work Phone: [facility] Start: 09-27-2024 End: 09-27-2024 Patient encounter procedure Christopher Suzie DO Work Phone: [facility] Comment on above: Myalgia Start: 09-27-2024 End: 09-27-2024 ambulatory CORBY LARSEN Not Available Start: 09-27-2024 End: 09-27-2024 ambulatory KURT A ESHA [facility] [place] [facility] Start: 09-26-2024 End: 09-26-2024 ambulatory KURT A ESHA [facility] [place] [facility] Start: 09-21-2024 End: 09-21-2024 Clinisync Result Encounter Christopher Suzie DO Work Phone: [facility] External Department Unsolicited Start: 09-21-2024 End: 09-21-2024 Clinisync Result Encounter Christopher Suzie DO Work Phone: [facility] External Department Unsolicited Start: 09-21-2024 End: 09-21-2024 Office outpatient visit 25 minutes Christopher Suzie DO Work Phone: [facility] Comment on above: Ataxia (Primary Dx); Myalgia Start: 09-21-2024 End: 09-21-2024 ambulatory CORBY LARSEN Not Available Start: 09-20-2024 End: 09-20-2024 Lab Drop off KURT A ESHA [facility] Start: 09-20-2024 End: 09-20-2024 ambulatory KURT BALBUENA Facility:[facility] Start: 09-16-2024 ambulatory KURT BALBUENA Facility : [facility] Start: 09-15-2024 End: 09-15-2024 Emergency department patient visit [facility] Work Phone: Start: 09-15-2024 End: 09-15-2024 ambulatory TIFFANIE MARADIAGA Facility: [facility] Start: 09-13-2024 End: 09-13-2024 Subsequent hospital visit by physician Clarita Smith Echo/Vasc Room 2 [facility] Comment on above: Angina pectoris; Shortness of breath; Palpitations; Family history of ischemic heart disease; Primary hypertension Start: 09-13-2024 End: 09-13-2024 ambulatory [facility] Start: 09-04-2024 End: 09-05-2024 ambulatory Tevin Carson DO Work Phone: Family Medicine Comment on above: Blood work Start: 08-25-2024 End: 08-25-2024 ambulatory Mary Jo Trinidad RN Work Phone: [facility] [employer] [facility] Start: 08-25-2024 End: 08-25-2024 Patient encounter procedure Mary Jo Trinidad RN Work Phone: [facility] Comment on above: ACM EDYTA RN ( ED Utilization Review per request of payor/) Start: 08-18-2024 End: 08-18-2024 Patient encounter procedure TIFFANIE MARADIAGA [facility] Start: 08-17-2024 End: 08-17-2024 Refill Tevin Carson DO Work Phone: Family Medicine Comment on above: Med Change Request Start: 08-08-2024 End: 08-08-2024 Office outpatient new 45 minutes Aleah Howard MD Work Phone: [facility] Comment on above: Angina pectoris; Shortness of breath; Palpitations; Family history of ischemic heart disease; Primary hypertension; Current smoker; BMI 29.0-29.9,adult Start: 08-08-2024 End: 08-08-2024 ambulatory [facility] Start: 07-26-2024 End: 07-26-2024 ambulatory TEVIN CARSON Facility:[facility] Start: 07-25-2024 End: 07-25-2024 ambulatory TEVIN CARSON Facility:[facility] Start: 07-25-2024 End: 07-25-2024 Office outpatient [...] Start: 07-11-2024 End: 07-11-2024 ambulatory ABI ASIF Facility:[facility] Start: 07-11-2024 End: 07-11-2024 Subsequent hospital visit by physician Procedure Mammo [facility] Comment on above: Abnormal mammogram o f left breast [R92.8] Start: 07-04-2024 End: 07-04-2024 ambulatory TEVIN CARSON Facility:[facility] Start: 07-04-2024 End: 07-04-2024 Patient encounter procedure Fatuma Tyler APRN.INTERACTIVE MEDIA SPECIALIST Work Phone: [facility] Comment on above: Abnormal mammogram ( Primary [...] breast [N63.21] Start: 07-03-2024 Non-patient / Non-visit [facility] Work Phone: Start: 07-01-2024 End: 07-01-2024 ambulatory TEVIN CARSON Facility:[facility] Start: 07-01-2024 End: 07-01-2024 Office outpatient visit 25 minutes Tevin Carson DO Work Phone: Family Medicine Comment on above: Chest pain, unspecif ied type (Primary Dx); Palpitations; Bipolar affective disorder in remission (HCC); History of substance abuse (HCC); Borderline personality disorder (HCC); Serum calcium elevated Start: 06-30-2024 End: 07-01-2024 Telephone encounter Fatuma Tyler APRN.CNP Work Phone: [facility] Comment on above: Appointment Start: 05-30-2024 End: 05-30-2024 ambulatory Lenora Yee RN Work Phone: [facility] [employer] [facility] Comment on above: CARMELINA ALN RN ( ED Utilization review per request of payer) Start: 04-26-2024 ambulatory Elia mcdowell DO Work Phone: Family Medicine Start: 03-08-2024 End: 03-08-2024 Emergency department patient visit Alexis Shukla [facility] Start: 03-08-2024 End: 03-08-2024 Subsequent hospital visit by physician Mri [facility] [place] (Lg Bore/1.5t) Radiology MRI Comment on above: 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 ] Start: 03-08-2024 End: 03-08-2024 ambulatory LEONELA AGUIRRE Facility:[facility] Start: 03-08-2024 End: 03-08-2024 Patient encounter [...] encounter status Elia Baires DO Work Phone: [facility] Work Phone: Start: 02-25-2024 End: 02-25-2024 ambulatory ELIA BAIRES Facility:[facility] Start: 01-13-2024 End: 01-13-2024 ambulatory [facility] Start: 01-05-2024 Telephone encounter Elia Cardenas Rajani liane DO Work Phone: Family Medicine Start: 01-04-2024 End: 01-04-2024 ambulatory ELIA BAIRES Facility:[facility] Start: 01-04-2024 End: 01-04-2024 Patient encounter procedure Eliafredrick Baires DO Work Phone: Family Medicine Comment on above: Panic disorder (Prim masoud Dx); Borderline personality disorder (HCC); Bipolar affective disorder in remission (HCC); Chronic alcoholism in remission (HCC); Routine health maintenance Start: 01-04-2024 End: 01-04-2024 Patient encounter status Elia Baires DO Work Phone: [facility] Start: 12-31-2023 End: 12-31-2023 Emergency department patient visit DO Jennie Ladarius Work Phone: [facility] Work Phone: Start: 12-25-2023 ambulatory SELF REFERRAL Facility: [facility] Start: 12-24-2023 End: 12-24-2023 Emergency department patient visit DO Jennie Ladarius Work Phone: [facility] Work Phone: Start: 2023 ambulatory Otto Larsen Facility:[facility] Start: 12-10-2023 End: 12-10-2023 Emergency department patient visit DO Jennie Durand Work Phone: [facility] Work Phone: Start: 12-09-2023 End: 12-09-2023 ambulatory Jennie Durand Facility:[facility] Start: 12-09-2023 End: 12-09-2023 Patient encounter procedure Jennie Durand [facility] Start: 10-23-2023 End: 10-26-2023 ambulatory [facility] Start: 10-12-2023 End: 10-15-2023 ambulatory [facility]ALIEL [facility] Start: 09-18-2023 End: 09-18-2023 Subsequent hospital visit by physician Gamaliel Vickers DO Work Phone: [facility] Start: 08-31-2023 End: 09-01-2023 ambulatory LEONELA AGUIRRE Facility:[facility] Start: 08-28-2023 End: 08-28-2023 ambulatory Imad Asaad Other [employer] Other Start: 08-28-2023 Telephone encounter Imad Asaad [facility] Licensed Certified Orthotist Start: 08-18-2023 End: 08-21-2023 ambulatory MARII JOSUE [facility] Start: 08-15-2023 End: 08-15-2023 Emergency department patient visit DO Jennie Durand Work Phone: [facility] Work Phone: Start: 08-14-2023 End: 08-14-2023 Emergency department patient visit DO Jennie Durand Work Phone: [facility] Work Phone: Start: 08-13-2023 End: 08-13-2023 ambulatory Imad Asaad Other [employer] Other Start: 08-13-2023 Office outpatient ne w 45 minutes Imad Asaad [facility] Start: 08-12-2023 End: 08-15-2023 ambulatory [facility] Start: 07-08-2023 End: 07-08-2023 ambulatory Ania Javed Other [employer] Other Start: 07-08-2023 Office outpatient ne w 20 minutes Ania Tegan [facility] Start: 07-03-2023 End: 07-03-2023 Emergency department patient visit DO Schneider Ladarius Work Phone: [facility] Work Phone: Start: 07-02-2023 End: 07-02-2023 Emergency department patient visit Bakari Chester [facility] Start: 06-10-2023 End: 06-10-2023 ambulatory EILEEN ALVAREZ Facility:[facility] Start: 06-09-2023 End: 06-09-2023 Emergency department patient visit Alexis Vazquez Facility:[facility] Start: 06-03-2023 Refill Eileen Alvarez MD Work Phone: Neurology Comment on above: Refill Request Start: 03-19-2023 End: 03-19-2023 ambulatory BOX FABRICATOR GANESH CORDERO Facility:[facility] Start: 03-19-2023 End: 03-19-2023 Patient encounter procedure GANESH CORDERO [facility] Start: 01-29-2023 End: 01-29-2023 Subsequent hospital visit by physician Marixa [facility] Vicky (1.5t) Work Phone: Radiology Comment on above: 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] Start: 01-15-2023 End: 01-15-2023 Emergency department patient visit Bakari Chester [facility] Start: 01-02-2023 End: 01-02-2023 Patient encounter procedure Nakia Mcqueen [facility] Start: 12-12-2022 Refill Eileen Alvarez MD Work Phone: Neurology Comment on above: Refill Request Start: 12-05-2022 End: 12-05-2022 Admission to same day surgery center Gal Das [facility] Start: 11-21-2022 End: 11-21-2022 Patient encounter procedure Gal Das [facility] Start: 11-20-2022 End: 11-20-2022 ambulatory EILEEN ALVAREZ Facility:[facility] Start: 11-20-2022 End: 11-20-2022 Patient encounter procedure Eileen Alvarez MD Work Phone: Neurology Comment on above: Idiopathic intracran ial hypertension (Primary Dx); Depression, unspecified depression type; Primary hypertension; Hx of gastric bypass; H/O foot surgery Start: 11-03-2022 End: 11-03-2022 Patient encounter procedure Nakia Mcqueen [facility] Start: 10-30-2022 End: 10-30-2022 ambulatory STEFANIE SINGH . Facility: Start: 10-23-2022 End: 10-23-2022 Lab Drop off Gal Das [facility] Start: 10-14-2022 End: 10-14-2022 Patient encounter procedure Rita Loja [facility] Start: 09-24-2022 End: 09-24-2022 Patient encounter procedure Aimee Walker [facility] Start: 08-22-2022 End: 08-22-2022 Patient encounter procedure Rahul Salinas [facility] Start: 08-19-2022 End: 08-19-2022 ambulatory DO Jennie Durand Work Phone: [facility] Work Phone: Start: 08-19-2022 End: 08-19-2022 Patient encounter procedure DO Jennie Durand Work Phone: [facility] Start: 08-18-2022 End: 08-18-2022 ambulatory RAMSES MARTINEZ . Facility:H1 Start: 08-18-2022 End: 08-18-2022 Emergency department patient visit Alexis Shukla [facility] Start: 08-16-2022 End: 08-16-[address] NEW DREW . Facility:H1 Start: 08-12-2022 ambulatory Facility:[id number] Start: 08-11-2022 End: 08-12-2022 Evaluation and management of inpatient DO Jennie Ladarius Work Phone: [facility] Start: 08-11-2022 End: 08-12-2022 observation encounter DO Jennie Durand Work Phone: [facility] Work Phone: Start: 08-11-2022 End: 08-11-[address] WEI PHAM Facility:H1 Start: 08-08-2022 End: 08-08-2022 Emergency department patient visit Bakari Chester [facility] Start: 07-21-2022 End: 07-21-2022 Patient encounter procedure Aimee Walker [facility] Start: 07-19-2022 End: 07-19-[address] DOCTOR CAMARILLO Facility:H1 Start: 07-18-2022 Telephone encounter Eduin Mckee Plastic Surgery Comment on above: Appointment Start: 06-12-2022 End: 06-12-[address] CAROLYNE RALPH Facility:H1 Start: 06-10-2022 End: 06-10-2022 Patient encounter procedure Alexis Rivers [facility] Start: 05-30-2022 End: 05-30-2022 ambulatory GABRIELA CAMARGO Facility:H1 Start: 05-13-2022 End: 05-13-2022 Patient encounter procedure Alexis Rivers [facility] Start: 04-22-2022 End: 04-22-2022 Patient encounter procedure Aimee Walker [facility] Start: 04-21-2022 End: 04-21-2022 Patient encounter procedure Aimee Walker [facility] Start: 04-20-2022 End: 04-20-2022 Emergency department patient visit Danilochelsea Castillo Bren [facility] Start: 04-07-2022 End: 04-07-[address] LADY SANCHEZ . Facility:H1 Start: 04-03-2022 End: 04-03-2022 Emergency department patient visit Larry Baker [facility] Start: 04-03-2022 End: 04-03-2022 Well adult monitoring check done Sherrywilly Baker [facility] Start: 02-12-2022 End: 02-12-2022 Patient encounter procedure Amee Gonzalez PA-C Work Phone: Otolaryngology Comment on above: Burning tongue (Prim masoud Dx); Irritation of oral cavity Start: 02-08-2022 End: 02-08-2022 ambulatory STEFANIE SINGH . Facility:H1 Start: 02-06-2022 End: 02-06-2022 Patient encounter procedure Aimee Wakler [facility] Start: 01-30-2022 End: 01-30-2022 ambulatory GABRIELA CAMARGO Facility:H1 Start: 01-29-2022 End: 01-29-2022 Patient encounter procedure Aimee Walker [facility] Start: 01-27-2022 ambulatory Eduin Mckee MD Work Phone: Plastic Surgery Comment on above: questions Start: 01-10-2022 Telephone encounter Eduin marx MD Work Phone: Plastic Surgery Comment on above: Patient Question; Ap pointment Start: 01-09-2022 End: 01-09-2022 Patient encounter procedure Aimee Walker [facility] Start: 12-27-2021 Telephone encounter Eduin marx MD Work Phone: Plastic Surgery Comment on above: Orders Scheduling Start: 11-16-2021 End: 11-17-[address] WILEY HELM Facility:H1 Start: 02-04-2021 End: 02-06-2021 Subsequent hospital visit by physician [facility] Cat Scan Room [facility] CT Scan Comment on above: Omental infarction ( HCC) Start: 01-30-2021 End: 02-01-2021 Evaluation and management of inpatient Berry J Sauber MD Work Phone: [facility] Ortho/Med Surg Comment on above: Surgery, elective (P rimary Dx); Omental infarction (HCC) Start: 01-30-2021 End: 01-30-2021 Emergency department patient visit David Nash MD Work Phone: [facility] ED Comment on above: Generalized abdomina [...] Start: 01-03-2021 End: 01-04-2021 ambulatory JENNIE DURAND [facility] Start: 01-03-2021 End: 01-03-2021 Patient encounter status Staz Schedule STAYomi Covid Scre ening Start: 01-03-2021 End: 01-03-2021 Subsequent hospital visit by physician Edgardo Beyid Screening Schedule EDGARDO Covid Screening Comment on above: Preop testing (Prima ry Dx) Start: 12-24-2020 End: 12-28-2020 Subsequent hospital visit by physician Christiane Salinas [facility] Radiology Comment on above: Arrived Start: 11-01-2020 End: 11-03-2020 Subsequent hospital visit by physician Chaitanya Jett Radiologist [facility] Radiology Comment on above: Gastroesophageal ref lux disease with esophagitis without hemorrhage Start: 10-26-2020 End: 10-26-2020 Subsequent hospital visit by physician Lyle Covid Screening Schedule LYLE Covid Screening Comment on above: Preoperative testing Start: 09-28-2020 End: 09-28-2020 Subsequent hospital visit by physician Gamaliel Vickers Work Phone: ST[facility]ATHIS Start: 09-24-2020 End: 09-28-2020 Subsequent hospital visit by physician [facility] Covid19 Pat Screening Schedule MTHZ PRE ADMIT Comment on above: Preoperative testing Start: 11-01-2015 Patient encounter procedure LINDY COTE Facility:[facility] Procedures Date Procedure Procedure Detail Performing Clinician Start: 04-26-2025 Mammography of left breast Lindy Keen APRN Work Phone: Start: 04-26-2025 Ultrasonography of l eft breast Lindy Keen APRN Work Phone: Start: 04-09-2025 Iadna streptococcus group a amplified probe tq Shazia Bach Gosia [employer] Work Phone: Start: 03-03-2025 Injection of facet j oint using fluoroscopic guidance Babar Mayers Comment on above: L4-S1 Start: 01-24-2025 Injection of facet j oint using fluoroscopic guidance [facility] Start: 12-16-2024 MRI of head Start: 11-28-2024 Injection of nerve r oot of lumbar spine using fluoroscopic guidance [facility] Comment on above: left L5/S1 TFESI Start: [...] Start: 08-12-2022 MRI of head DO Jennie Jhon carlos Work Phone: Start: 08-12-2022 MRI venography [...] REFLEX TO MG FOR LOW K Nicolasa Marina MejíaMimi DO Work Phone: Start: 01-31-2021 Blood count [...] test visual color cmprsn meths Gamaliel Vickers DO Work Phone: Start: 04-12-2021 Assay of nicotine Enmanuel Vickers [employer] Work Phone: Start: 12-24-2020 Basic metabolic pane l calcium total Gamaliel Vickers DO Work Phone: Start: 12-24-2020 Radiologic exam ches t 2 views Gamaliel Vickers Work Phone: Start: 12-24-2020 Ecg routine ecg w/le ast 12 lds trcg only w/o i&r Gamaliel Vickers [employer] Work Phone: Start: 12-24-2020 EKG REPORT Hpf Scanni ng Start: 11-01-2020 Radex upper gi w/wo glucagon/delay imges w/o kub Gamaliel Gastelum Vickers Work Phone: Start: 09-24-2020 COVID-19 Obdulio Nj botelloalondra Work Phone: Start: 02-16-2020 Endoscopic plantar fasciotomy [...] of 2) Zoster Vaccines (1 of 2) [facility] Start: 02-24-2027 Diabetes mellitus screening Diabetes Screening [facility] Start: 07-25-2025 Annual PCP Team Chronic Disease Visit Annual PCP Team Chronic Disease Visit [facility] Start: 07-25-2025 BP Controlled (<130/80) BP Controlled (<130/80) [facility] in Start: 07-01-2025 Annual PCP Team Chronic Disease Visit Annual PCP Team Chronic Disease Visit [facility] Start: 07-01-2025 BP Controlled (<130/80) BP Controlled (<130/80) [facility] Start: 05-15-2025 Influenza vaccination [facility] Start: 05-01-2025 End: 05-01-2025 Patient encounter procedure 05/01/2025 2:15 PM EDT Office Visit [facility] Surgical [facility] [address] [address] Aaliyah Zamudio DO [address] [address] [facility] Start: 04-13-2025 End: 06-13-2026 DBT Breast - left diagnostic Left diagnostic mammogram with tomosynthesis Imaging Routine Pseudoangiomatous stromal hyperplasia of breast Hypertrophy of breast Expected: 04/13/2025, Expires: 06/13/2026 [facility] Work Phone: Comment on above: Expected: 04/13/2025, Expires: Start: 04-13-2025 End: 06-13-2026 US Breast - left limited Left breast US limited Imaging Routine Pseudoangiomatous stromal hyperplasia of breast Hypertrophy of breast Expected: 04/13/2025, Expires: 06/13/2026 [facility] Comment on above: Expected: 04/13/2025, Expires: Start: 04-13-2025 End: 04-13-2025 Patient encounter procedure 04/13/2025 10:00 AM EDT Consult [facility] [address] [id number] Aaliyah Zamudio, DO [address] [place] [address] [facility] Start: 03-08-2025 Annual PCP Team Chronic Disease Visit Annual PCP Team Chronic Disease Visit [facility] Start: 03-08-2025 BP Controlled (<130/80) BP Controlled (<130/80) [facility] inic Start: 03-08-2025 Urine microalbumin profile DTaP,Tdap,Td Vaccine (1 - Tdap) [facility] Comment on above: Postponed from 12/18/2007 (Declined at t his time) Start: 01-03-2025 Annual PCP Team Chronic Disease Visit Annual PCP Team Chronic Disease Visit [facility] Start: 12-12-2024 Aldolase measurement [facility] Start: 12-12-2024 Antibody to Scl-70 measurement [facility] Start: 12-12-2024 Hemolytic complement CH50 level [facility] Start: 12-12-2024 [employer] antibody measurement [facility] Start: 12-12-2024 [facility] Start: 10-20-2024 End: 10-20-2024 Patient encounter procedure 10/20/2024 8:40 AM EST Office Visit [facility] SAMUEL[facility] [address] [place] [phone] Mague Fine NP [address] [place] [phone] [facility] Start: 10-04-2024 End: 10-04-2024 Patient encounter procedure 10/04/2024 12:40 PM EST Appointment Radiology MRI [address] [place], [place] [id number] MRI BREAST WO/W IVCON Radiology MRI Comment on above: MRI BREAST WO/W IVCON Start: 09-27-2024 End: 09-27-2024 Patient encounter procedure RUTH Oquendo [facility] Comment on above: Arrived Start: 09-21-2024 End: 09-21-2025 EMG 2 Extremities EMG 2 Extremities Neurology Routine Myalgia Expected: 09/21/2024, Expires: 09/21/2025 [facility] Work Phone: Comment on above: Expected: 09/21/2024, Expires: Start: 09-21-2024 End: 09-21-2025 MR Brain WO and W contrast IV MR brain w and wo contrast routine Imaging Routine Ataxia Expected: 09/21/2024, Expires: 09/21/2025 [facility] Comment on above: Expected: 09/21/2024, Expires: Start: 09-21-2024 End: 09-21-2025 Myoglobin, serum Myoglobin, serum Lab Routine Myalgia Expected: 09/21/2024 (Approximate), Expires: 09/21/2025 [facility] Comment on above: Expected: 09/21/2024 (Approximate), Expi res: 09/21/2025 Start: 09-21-2024 End: 09-21-2025 Nuclear Ab [Titer] in Serum by Immunofluorescence CYNDI Lab Routine Myalgia Expected: 09/21/2024 (Approximate), Expires: 09/21/2025 [facility] Comment on above: Expected: 09/21/2024 (Approximate), Expi res: 09/21/2025 Start: 09-21-2024 End: 09-21-2025 Thyrotropin [Units/volume] in Serum or Plasma TSH Lab Routine Myalgia Expected: 09/21/2024 (Approximate), Expires: 09/21/2025 [facility] Comment on above: Expected: 09/21/2024 (Approximate), Expi res: 09/21/2025 Start: 09-19-2024 End: 09-19-2024 Patient encounter procedure 09/19/2024 3:00 PM EST Office Visit [facility] [address] [facility] [address] [place] [address] Aleah Howard MD [address] [facility] [address] [place] [address] [facility] Start: 09-13-2024 End: 09-13-2024 Patient encounter procedure [facility] Comment on above: ER Follow up Start: 08-24-2024 End: 08-24-2024 ambulatory 08/24/2024 11:20 AM EST [facility] [address] [place] [address] [place] [address] [place] [address] Return in about 4 weeks (around 08/22/2024) Family Medicine Comment on above: Return in about 4 weeks (around ) Start: 08-23-2024 End: 08-23-2024 [facility] Start: 08-08-2024 End: 08-08-2025 NM Heart Perfusion W stress and W radionuclide IV Nuclear Stress Test Cardiac Nuclear Medicine Routine Angina pectoris Shortness of breath Palpitations Family history of ischemic heart disease Primary hypertension Expected: 08/08/2024 (Approximate), Expires: 08/08/2025 [facility] Service Area Work Phone: Comment on above: Expected: 08/08/2024 (Approximate), Expi res: 08/08/2025 Start: 08-08-2024 End: 08-08-2026 US Heart Transthoracic Transthoracic Echo Complete Echocardiography Routine Angina pectoris Shortness of breath Palpitations Family history of ischemic heart disease Primary hypertension Expected: 08/08/2024 (Approximate), Expires: 08/08/2026 [facility] Work Phone: Comment on above: Expected: 08/08/2024 (Approximate), Expi res: 08/08/2026 Start: 08-05-2024 End: 08-05-2024 ambulatory [facility] Comment on above: Fhx of pancreatic cancer, Phx of pancrea tic mass Action taken: Marked in [employer]Base for Schedulers Start: 07-29-2024 End: 07-29-2024 Patient encounter procedure 07/29/2024 2:40 PM EST Office Visit Family Medicine [address] [place] [address] [place] [address] [place], [place] [id number] Return in about 4 weeks (around 07/29/2024) Family Medicine Comment on above: Return in about 4 weeks (around 07/29/20) Start: 07-27-2024 End: 07-27-2024 Patient encounter procedure 07/27/2024 11:30 AM EST Office Visit [facility] [address] [place] [address] Kiera Gilmore DO [address] [place] [address] Teresa David, 07/27/24, 1130am, ty per email [facility] Comment on above: Teresa David, 07/27/24, 1130am, ty per email Start: 07-26-2024 End: 07-26-2024 ambulatory 07/26/2024 8:45 AM EST Results Only [facility] [address] [place] [address] [place] [address] Iron deficiency anemia, unspecified iron deficiency anemia type [D50.9] [facility] Comment on above: Iron deficiency anemia, unspecified iron deficiency anemia type [D50.9] Start: 07-25-2024 End: 07-25-2024 Patient encounter procedure 07/25/2024 3:00 PM EST Office Visit Family Medicine [address] [place] [address] [place] [address] [place] [address] H f/u Family Medicine Comment on above: H f/u Start: 07-25-2024 End: 10-24-2024 CBC W Auto Differential panel - Blood COMPLETE BLOOD COUNT AND DIFFERENTIAL Lab Routine Iron deficiency anemia, unspecified iron deficiency anemia type Expected: 07/25/2024, Expires: 10/24/2024 [facility] Comment on above: Expected: 07/25/2024, Expires: Start: 07-25-2024 End: 10-24-2024 Ferritin [Mass/volume] in Serum or Plasma FERRITIN Lab Routine Iron deficiency anemia, unspecified iron deficiency anemia type Expected: 07/25/2024, Expires: 10/24/2024 [facility] Work Phone: Comment on above: Expected: 07/25/2024, Expires: Start: 07-25-2024 End: 10-24-2024 Iron and Iron binding capacity panel - Serum or Plasma IRON AND TIBC Lab Routine Iron deficiency anemia, unspecified iron deficiency anemia type Expected: 07/25/2024, Expires: 10/24/2024 [facility] Comment on above: Expected: 07/25/2024, Expires: Start: 07-11-2024 End: 07-11-2024 Patient encounter procedure 07/11/2024 8:30 AM EDT Appointment Mammography [id number] [place] [id number] lt breast us core bx Mammography Comment on above: lt breast us core bx Start: 07-04-2024 End: 07-04-2024 Patient encounter procedure [facility] Comment on above: 11:30A IMAGING; Breast lump with pain x 1 yr; imaging done at [facility](pt hand caring images); Bx recommended by PCP; blood nipple discharge- spontaneous- last noticed 8 months ago Breast lump with suraj n x 1 yr; imaging done at [facility](pt hand caring images); Bx recommended by PCP; blood nipple discharge- spontaneous- last noticed 8 months ago Start: 07-01-2024 End: 09-30-2024 25-hydroxyvitamin D3 [Mass/volume] in Serum or Plasma VITAMIN D 25 HYDROXY Lab Routine Serum calcium elevated Expected: 07/01/2024, Expires: 09/30/2024 [facility] Comment on above: Expected: 07/01/2024, Expires: Start: 07-01-2024 End: 09-30-2024 Comprehensive metabolic 2000 panel - Serum or Plasma COMPREHENSIVE METABOLIC PANEL Lab Routine Serum calcium elevated Expected: 07/01/2024, Expires: 09/30/2024 [facility] Comment on above: Expected: 07/01/2024, Expires: Start: 07-01-2024 End: 01-17-2025 Parathyrin.intact [Mass/volume] in Serum or Plasma PTH INTACT Lab Routine Serum calcium elevated Expected: 07/01/2024, Expires: 09/30/2024 [facility] Comment on above: Expected: 07/01/2024, Expires: Start: 07-01-2024 End: 07-01-2024 Patient encounter procedure 07/01/2024 11:00 AM EDT Office Visit Family Medicine [address] [place] [address] [place] [address] [place] [address] est care. Updated PCP per navigation rules. Family Medicine Comment on above: est care. Updated PCP per navigation rul es. Start: 05-31-2024 End: 05-31-2024 Patient encounter procedure 05/31/2024 11:00 AM EDT Office Visit Family Medicine [address] [place] [address] Lisha Bianchi, ONCOLOGY PHARMACIST.INTERACTIVE MEDIA SPECIALIST [address] [place] [address] ED follow up Family Medicine Comment on above: ED follow up Start: 05-24-2024 End: 05-24-2024 Patient encounter procedure 05/24/2024 11:15 AM EDT Office Visit Endocrinology [address] [place] [address] Austin Leon, ONCOLOGY PHARMACIST.INTERACTIVE MEDIA SPECIALIST [address] [place] [address] Class 1 obesity due to excess calories without serious comorbidity with body ma Endocrinology Comment on above: Class 1 obesity due to excess calories w ithout serious comorbidity with body ma Start: 05-15-2024 COVID-19 Vaccine ( season) COVID-19 Vaccine ( season) [facility] Start: 05-15-2024 COVID-19 Vaccine ( season) COVID-19 Vaccine () [facility] Start: 05-15-2024 Influenza vaccination [facility] Start: 03-01-2024 End: 03-01-2024 Patient encounter procedure 03/01/2024 11:20 AM EDT Appointment Radiology [address] [place] [address] MRI Panc/Tanmay Wo/W [facility] Comment on above: MRI Panc/Tanmay Wo/W [facility] Start: 01-06-2024 End: 01-06-2024 ambulatory 01/06/2024 8:30 AM EDT Results Only [facility] [address] [place] [address] [facility] Start: 01-04-2024 End: 04-04-2024 CBC panel - Blood by Automated count COMPLETE BLOOD COUNT Lab Routine Routine health maintenance Expected: 01/04/2024, Expires: 04/04/2024 [facility] Work Phone: Comment on above: Expected: 01/04/2024, Expires: Start: 01-04-2024 End: 04-04-2024 Comprehensive metabolic 2000 panel - Serum or Plasma COMPREHENSIVE METABOLIC PANEL Lab Routine Routine health maintenance Expected: 01/04/2024, Expires: 04/04/2024 [facility] Comment on above: Expected: 01/04/2024, Expires: Start: 01-04-2024 End: 04-04-2024 Hemoglobin A1c in Blood HEMOGLOBIN A1C Lab Routine Routine health maintenance Expected: 01/04/2024, Expires: 04/04/2024 [facility] Comment on above: Expected: 01/04/2024, Expires: Start: 01-04-2024 End: 04-04-2024 Hepatitis C virus Ab [Presence] in Serum HEPATITIS C ANTIBODY IA WITH CONFIRMATION Lab Routine Routine health maintenance Expected: 01/04/2024, Expires: 04/04/2024 [facility] Comment on above: Expected: 01/04/2024, Expires: Start: 01-04-2024 End: 04-04-2024 HIV 1+2 Ab [Presence] in Serum or Plasma by Immunoassay HIV 1/2 COMBO WITH REFLEX TO DIFFERENTIATION Lab Routine Routine health maintenance Expected: 01/04/2024, Expires: 04/04/2024 [facility] Comment on above: Expected: 01/04/2024, Expires: 4 Start: 01-04-2024 End: 04-04-2024 Lipid 1996 panel - Serum or Plasma LIPID PANEL BASIC Lab Routine Routine health maintenance Expected: 01/04/2024, Expires: 04/04/2024 [facility] Comment on above: Expected: 01/04/2024, Expires: 4 Start: 12-10-2023 [facility] Start: 09-18-2023 End: 09-18-2023 Egd transoral biopsy single/multiple EGD BIOPSY Gastroesophageal reflux disease, unspecified whether esophagitis present Obesity (BMI 30-39.9) 09/18/2023 8:14 AM [facility] [email or web address] [facility] Start: 05-15-2023 COVID-19 Vaccine () COVID-19 Vaccine () [facility] Start: 05-15-2023 Influenza vaccination Influenza Vaccine (#1) [facility] Start: 04-14-2023 Influenza vaccination Flu vaccine (#1) [facility] Start: 08-19-2022 Cerebrospinal fluid culture [facility] Start: 08-19-2022 End: 08-19-2022 [facility] Start: 08-12-2022 [facility] Start: 08-12-2022 Glucose [Mass/volume] in Cerebral spinal fluid [facility] Start: 08-12-2022 Protein [Mass/volume] in Cerebral spinal fluid [facility] Start: 08-12-2022 [facility] Start: 08-11-2022 Hospital admission [facility] Start: 08-11-2022 Referral to neurologist [facility] Start: 08-11-2022 [facility] Start: 05-15-2022 Influenza vaccination [facility] Start: 09-29-2021 COVID-19 VACCINE (3 - Booster for Pfizer series) COVID-19 VACCINE (3 - Booster for Pfizer series) [facility] Start: 09-14-2021 DEPRESSION ASSESSMENT DEPRESSION ASSESSMENT [facility] Start: 06-24-2021 COVID-19 VACCINE (3 - Booster for Pfizer series) COVID-19 VACCINE (3 - Booster for Pfizer series) [facility] Start: 06-24-2021 Covid-19 Vaccine (3 - Pfizer series) Covid-19 Vaccine (3 - Pfizer series) [facility] Start: 03-06-2021 End: 03-06-2021 Patient encounter procedure 03/06/2021 Office Visit Gamaliel Mistry DO [address] [place] [phone] [facility] Invasive Bariatric Surg Start: 02-20-2021 End: 02-20-2021 Patient encounter procedure 02/20/2021 Office Visit Gamaliel Mistry DO [address] [place] [address] [facility] Start: 01-18-2021 End: 01-18-2021 Office Visit 01/18/2021 Office Visit Gamaliel Mistry DO [address] [place] [id number] [facility] Invasive Bariatric Surg Start: 01-07-2021 End: 01-07-2021 Hospital Encounter [facility] Comment on above: XI LAPAROSCOPIC ROBOTIC GASTRIC BYPASS R OUX-EN-Y, LIVER BIOPSY, EGD- GI UNIT SCHEDULED. Start: 01-03-2021 End: 01-03-2021 Office Visit [facility] Invasive Bariatric Surg Comment on above: Arrived Start: 12-31-2020 End: 12-31-2021 COVID-19 COVID-19 Lab Routine Preop testing Expected: 12/31/2020, Expires: 12/31/2021 [facility] Work Phone: Comment on above: Expected: 12/31/2020, Expires: Start: 11-21-2020 End: 11-21-2020 Office Visit 11/21/2020 Office Visit Ganesh Jacinto Isreal, ONCOLOGY PHARMACIST - INTERACTIVE MEDIA SPECIALIST [address] [facility] [address] [address] [place] [address] [facility] Start: 11-01-2020 End: 11-01-2020 Appointment 11/01/2020 Appointment Radiology Radiologist, Chaitanya Jett [facility] Start: 10-24-2020 End: 10-24-2020 Office Visit [facility] Start: 09-26-2020 Annual Wellness Visit (AWV) Annual Wellness Visit (AWV) [facility] Start: 2018 HPV TESTING HPV TESTING [facility] Start: 2018 Screening for malignant neoplasm of cervix [facility] Start: 06-10-2016 Screening for malignant neoplasm of cervix [facility] Start: 2010 DTaP/Tdap/Td Vaccines (1 - Tdap) DTaP/Tdap/Td Vaccines (1 - Tdap) [facility] Start: 2009 PAP TESTING PAP TESTING [facility] Start: 2009 Screening for malignant neoplasm of cervix [facility] Start: 12-18-2007 DTaP/Tdap/Td vaccine (1 - Tdap) DTaP/Tdap/Td vaccine (1 - Tdap) [facility] Start: 12-18-2007 Pneumococcal vaccination Pneumococcal Vaccine (1 of 2 - PCV) [facility] Start: 12-18-2007 Pneumococcal Vaccine: Pediatrics and At-Risk Adult Patients (1 of 2 - PCV) Pneumococcal Vaccine: Pediatrics and At-Risk Adult Patients (1 of 2 - PCV) [facility] Start: 12-18-2007 Urine microalbumin profile [facility] Start: 2006 ANNUAL PCP TEAM CHRONIC DISEASE VISIT ANNUAL PCP TEAM CHRONIC DISEASE VISIT [facility] Start: 2006 BP CONTROLLED (<130/80) BP CONTROLLED (<130/80) [facility] Start: 2006 HEPATITIS C SCREENING HEPATITIS C SCREENING [facility] Start: 2006 Hepatitis C screening [facility] Start: 2006 HIV SCREENING HIV SCREENING [facility] Start: 2006 HIV screening HIV Screening [facility] Start: 2004 COVID-19 Vaccine (1) COVID-19 Vaccine (1) [employer] Phone: Start: 12-18-2003 HIV screening HIV screen [facility] Start: 2001 Varicella vaccination Varicella Vaccines (1 of 2 - 13+ 2-dose series) [facility] Start: 2000 Adult depression screening assessment DEPRESSION SCREENING [facility] Start: 2000 COVID-19 Vaccine (1) COVID-19 Vaccine (1) [employer]: Start: 2000 Depression Monitoring [facility] Start: 12-10-2000 Hepatitis B Vaccine (2 of 3 - 3-dose series) Hepatitis B Vaccine (2 of 3 - 3-dose series) [facility] Start: 12-10-2000 Hepatitis B Vaccines (2 of 3 - 3-dose series) Hepatitis B Vaccines (2 of 3 - 3-dose series) [facility] Start: 1994 PNEUMOCOCCAL (1 - PCV) PNEUMOCOCCAL (1 - PCV) [facility] Start: 1994 Pneumococcal 0-64 years Vaccine (1 - PCV) Pneumococcal 0-64 years Vaccine (1 - PCV) [facility] Start: 1994 Pneumococcal vaccination [facility] Start: 1994 Pneumococcal Vaccine: Pediatrics (0 to 5 Years) and At-Risk Patients (6 to 64 Years) (1 of 2 - PCV) Pneumococcal Vaccine: Pediatrics (0 to 5 Years) and At-Risk Patients (6 to 64 Years) (1 of 2 - PCV) [facility] Start: 1989 Varicella vaccine (1 of 2 - 2-dose childhood series) Varicella vaccine (1 of 2 - 2-dose childhood series) [facility] Start: 1988 HEPATITIS B (1 of 3 - 3-dose series) HEPATITIS B (1 of 3 - 3-dose series) [facility] Start: 1988 Hepatitis B Vaccine (1 of 3 - 3-dose series) Hepatitis B Vaccine (1 of 3 - 3-dose series) [facility] Start: 1988 Hepatitis C screening Hepatitis C screen [facility] [place] Start: 1988 HIV screening HIV Screening [facility] Start: 1988 Lipid panel Lipid Panel [facility] Start: 1988 Medicare Annual Wellness (AWV) Medicare Annual Wellness (AWV) [facility] Start: 1988 Medicare Annual Wellness Visit Medicare Annual Wellness Visit (AWV) [facility] 24 hour urine measurement [facility] Adenosine monophosphate.cyclic [Moles/volume] in Serum or Plasma [facility] Albumin [Mass/volume ] in Serum or Plasma [facility] Albumin/Globulin ratio [facility] Bacteria identified in Unspecified specimen by Aerobe culture [facility] Work Phone: Bacteria identified in Unspecified specimen by Anaerobe culture [facility] Work Phone: Basic Metabolic Pane l w/ Reflex to MG Basic Metabolic Panel w/ Reflex to MG Lab Routine Daily until discontinued starting 02/01/2021, 1 completed [facility] Work Phone: Comment on above: Daily until discontinued starting 2020, 1 completed Beta 2 glycoprotein 1 IgG Ab [Units/volume] in Serum [facility] Beta 2 glycoprotein 1 IgM Ab [Units/volume] in Serum [facility] End: 09-18-2023 Blood glucose - POCT Blood glucose - POCT Point of Care Testing Routine One Time for 1 Occurrences starting 09/18/2023 until 09/18/[address] [facility] Comment on above: One Time for 1 Occurrences starting 01/2024 until 09/18/2023 CANNABINOID CONF, UR CANNABINOID CONF, UR Lab Routine Panic disorder 01/04/2024 10:20 AM EDT [facility] Cardiolipin IgA Ab [Units/volume] in Serum by Immunoassay [facility] Cardiolipin IgG Ab [Units/volume] in Serum by Immunoassay [facility] Cardiolipin IgM Ab [Units/volume] in Serum by Immunoassay [facility] Cell count, cerebros kinga fluid [facility] Work Phone: Centromere protein B Ab [Units/volume] in Serum [facility] Cerebrospinal fluid examination [facility] Work Phone: Chromatin Ab [Units/volume] in Serum or Plasma [facility] Complement C3 [Mass/volume] in Serum or Plasma [facility] Complement C4 [Mass/volume] in Serum or Plasma [facility] Continuous pulse oximetry Pulse oximetry, continuous Respiratory Care Routine Every 4hr until discontinued starting 01/07/2021 [employer] Work Phone: Comment on above: Every 4hr until discontinued starting End: 10-26-2020 COVID-19 COVID-19 Lab Routine Preoperative testing 1 Occurrences starting 10/26/2020 until 10/26/2020 [employer] Work Phone: Comment on above: 1 Occurrences starting 10/26/2020 until 10/26/2020 COVID-19 [facility] Work Phone: End: 01-03-2021 COVID-19 COVID-19 Lab Routine Preop testing 1 Occurrences starting 01/03/2021 until 01/03/2021 [facility] Work Phone: Comment on above: 1 Occurrences starting 01/03/2021 until 01/03/2021 DBT Breast - bilater al diagnostic for implant LINDA DIAG W AV BILATERAL Radiology Routine Mass of upper outer quadrant of left breast 07/04/2024 11:59 AM EDT [facility] Work Phone: ECG COMPLETE ECG COMPLETE ECG Routine Chest pain, unspecified type Palpitations Ordered: 07/01/2024 [facility] Work Phone: Comment on above: Ordered: 07/01/2024 Electrophoresis: [id number] [facility] Electrophoresis: [id number] [facility] Electrophoresis: beta-globulin [facility] Electrophoresis: fiorella ma globulin [facility] Evaluation of cerebrospinal fluid [facility] Work Phone: Fluid sample volume measurement [facility] Work Phone: Globulin [Mass/volum e] in Serum [facility] Glucose [Mass/volume ] in Cerebral spinal fluid [facility] Work Phone: Histone IgG Ab [Units/volume] in Serum by Immunoassay [facility] Homogenous nuclear A b pattern [Titer] in Serum [facility] IgA [Mass/volume] in Serum or Plasma [facility] IgG [Mass/volume] in Serum or Plasma [facility] IgM [Mass/volume] in Serum or Plasma [facility] Immunofixation for Urine [facility]: 09-18-2023 INITIATE PACU OXYGEN THERAPY PROTOCOL Initiate PACU Oxygen Therapy Protocol Respiratory Care Routine Continuous until discontinued starting 09/18/2023 [facility] Comment on above: Continuous until discontinued starting 0 09/18/2023 Es-1 extractable nuc lear Ab [Units/volume] in Serum [facility] Lupus anticoagulant [Interpretation] in Platelet poor plasma [facility] Measurement of monoc lonal protein concentration [facility] Meningitis+Encephali tis pathogens DNA and RNA panel - Cerebral spinal fluid by JOSÉ MIGUEL with non-probe detection [facility] Work Phone: Microscopic observat ion [Identifier] in Unspecified specimen by Gram stain [facility] Work Phone: End: 08-03-2025 MR Breast - bilateral WO and W contrast IV MRI BREAST WO/W IVCON BILATERAL Radiology Routine Mass of upper outer quadrant of left breast Fibrocystic breast changes of both breasts Mastodynia Inversion of left nipple Bloody discharge from left nipple Nipple discharge 1 Occurrences starting 07/04/2024 until 08/03/2025 [facility] Work Phone: Comment on above: 1 Occurrences starting 07/04/2024 until 08/03/2025 End: 04-07-2025 MR Breast - left WO and W contrast IV MRI BREAST BX WO/W IVCON LEFT Radiology Routine Mass of upper outer quadrant of left breast 1 Occurrences starting 03/08/2024 until 04/07/2025 [facility] Work Phone: Comment on above: 1 Occurrences starting 03/08/2024 until 04/07/2025 End: 12-20-2023 Mra head w/o & w/contrast material MRV BRAIN WO/W IVCON Radiology Routine Idiopathic intracranial hypertension 1 Occurrences starting 11/20/2022 until 12/20/2023 [facility] Work Phone: Comment on above: 1 Occurrences starting 11/20/2022 until 12/20/2023 Myoglobin [Mass/volu me] in Serum or Plasma [facility] Nebulizer therapy HHN Treatment Respiratory Care Routine TID until discontinued starting 01/07/2021 [employer] Work Phone: Comment on above: TID until discontinued starting 01/08/20 21 Nuclear Ab [Titer] i n Serum [facility] Nucleated cells [#/v olume] in Cerebral spinal fluid by Manual count [facility] Work Phone: Oxygen therapy [Mini mum Data Set] [facility] Comment on above: Daily until discontinued starting 2020 Daily until disconti nued starting 01/07/2021 Daily until disconti nued starting 01/31/2021 Oxygen therapy [Mini mum Data Set] Initiate Oxygen Therapy Protocol Respiratory Care Routine As Needed until discontinued starting 09/18/2023 [employer] Work Phone: Comment on above: As Needed until discontinued starting Patient Education [facility] Work Phone: Patient referral [facility] Work Phone: Phase I & II - meter ed glucose Phase I & II - metered glucose Point of Care Testing Routine As Needed until discontinued starting 09/28/2020 [facility] Comment on above: As Needed until discontinued starting End: 09-28-2020 , urine POCT , urine POCT Point of Care Testing Routine One Time for 1 Occurrences starting 09/28/2020 until 09/28/2020 [facility] Comment on above: One Time for 1 Occurrences starting 09/14 until 09/28/2020 End: 09-18-2023 , urine POCT , urine POCT Point of Care Testing Routine One Time for 1 Occurrences starting 09/18/2023 until 09/18/2023 [facility] Comment on above: One Time for 1 Occurrences starting 01/2024 until 09/18/2023 Protein [Mass/volume ] in Cerebral spinal fluid [facility] Work Phone: Protein [Mass/volume ] in Serum or Plasma [facility] Protein [Mass/volume ] in Urine [facility] Reagin Ab [Presence] in Serum by RPR [facility] Red blood cell count [facility] Work Phone: Rheumatoid factor [Units/volume] in Serum or Plasma [facility] Serum immunofixation [facility] Sjogrens syndrome-A extractable nuclear Ab [Units/volume] in Serum [facility] Sjogrens syndrome-B extractable nuclear Ab [Units/volume] in Serum [facility] Helm extractable nu clear Ab [Units/volume] in Serum [facility] SPECIMEN VALIDITY, URINE SPECIME N VALIDITY, URINE Lab Routine Panic disorder 01/04/2024 10:20 AM EDT [facility] Spirometry panel Incentive pete metry Respiratory Care Routine Every 2hr while awake until discontinued starting 01/07/2021 [facility] Work Phone: Comment on above: Every 2hr while awake until discontinued starting 01/07/2021 Surgical Pathology Surgical Path ology Lab Routine Release Upon Ordering for 1 Occurrences starting 09/28/2020 [facility] [place], [place] Comment on above: Release Upon Ordering for 1 Occurrences starting 09/28/2020 SURGICAL PATHOLOGY [facility] Work Phone: Comment on above: Release Upon Ordering for 1 Occurrences starting 07/11/2024, 1 completed Thrombin time [facility] US Breast - left limited US JORDYN ST LTD LEFT Radiology Routine Mass of upper outer quadrant of left breast 07/04/2024 12:13 PM EDT [facility] Immunizations Immunization Date Immunization Notes Care Provider Jayme penaloza 04-29-2021 SARS-CoV-2 (COVID-19 ) mRNA BNT-162b2 vax Aimee Walker [facility] 04-08-2021 SARS-CoV-2 (COVID-19 ) mRNA BNT-162b2 vax Aimee Walker [facility] 07-23-2020 influenza virus vaccine, unspecified formulation Eileen Alvarez MD Work Phone: [facility] 07-09-2020 influenza nasal, unspecified formulation Elia Baires DO Work Phone: [facility] 07-09-2020 influenza virus vaccine, unspecified formulation Aimee Walker [facility] 07-09-2020 influenza, injectable, quadrivalent, preservative free Elia Baires DO Work Phone: [facility] 11-12-2000 hepatitis B vaccine, pediatric or pediatric/adolescent dosage Elia Baires DO Work Phone: [facility] 11-12-2000 measles, mumps and rubella virus vaccine Elia Baires DO Work Phone: [facility] NEGATED: Highlighted row has not occurred!07-21-2022 influenza virus vaccine, unspecified formulation Aimee Walker [facility] Payers Date Payer Category Payer Unknown [id number] 2024 Unknown 2023 Medicare (Managed Care) 1.2. [id number] 2023 Medicare [id number] 2021 Medicaid MEDICAID [facility] MEDICAID [id number] 2021-Present [phone] [address] [place] [address] Medicaid [id number] 2021 Medicaid [id number] .[id number] 2021 Medicare [facility] MED[facility] PPO [id number] 2021-Present [phone] [address] [address] [place] [address] PPO [id number] [id number] .[id number] 2020 Medicare [id number] 1.2.840.817362.1.13.239.2.7 .[id number] 2018 Medicare [id number]. 1.13.159.2.7 .[id number] 2018 Medicare [id number] 1988 Unknown [id number] 2.16.840.1.692514.3.579.2.7 32 1988 Unknown [id number] 2.16.840.1.163725.3.579.2.1 77 1988 Unknown [id number] 2.16.840.1.813699.3.579.2.3 56 1988 Unknown [id number] 2.16.840.1.418070.3.579.2.5 93 1988 Unknown [id number] 2.16.840.1.387336.3.579.2.5 93 1988 Unknown [id number] 2.16.840.1.995263.3.579.2.5 93 1988 Unknown [id number] 2.16.840.1.383765.3.579.2.5 93 1988 Unknown [id number] 2.16.840.1.500995.3.579.2.5 93 1988 Unknown [id number] 2.16.840.1.732331.3.579.2.5 93 1988 Unknown [id number] 2.16.840.1.431870.3.579.2.5 93 1988 Unknown [id number] 2.16.840.1.627199.3.579.2.5 93 1988 Unknown [id number] 2.16.840.1.365198.3.579.2.5 93 1988 Unknown [id number] 2.16.840.1.026354.3.579.2.5 93 1988 Unknown [id number] 2.16.840.1.739345.3.579.2.5 1988 Unknown [id number] 2.16.840.1.646870.3.579.2.1 1988 Unknown [id number] 2.16.840.1.461777.3.579.2.1 1988 Unknown [id number] 2.16.840.1.645314.3.579.2.1 1988 Unknown [id number] 2.16.840.1.915195.3.579.2.1 1988 Unknown [id number] 2.16.840.1.962020.3.579.2.1 1988 Unknown [id number] 2.16.840.1.931328.3.579.2.7 27 1988 Unknown [id number] 2.16.840.1.072619.3.579.2.7 27 1988 Unknown [id number] 2.16.840.1.190144.3.579.2.7 1988 Unknown [id number] 2.16.840.1.794757.3.579.2.7 1988 Unknown [id number] 2.16.840.1.781924.3.579.2.7 27 1988 Unknown [id number] 2.16.840.1.170112.3.579.2.7 27 1988 Unknown [id number] 2.16.840.1.215587.3.579.2.1 246 1988 Unknown [id number] 2.16.840.1.409055.3.579.2.7 27 1988 Unknown [id number] 2.16.840.1.121514.3.579.2.7 27 1988 Unknown [id number] 2.16.840.1.399699.3.579.2.7 27 1988 Unknown [id number] 2.16.840.1.890754.3.579.2.7 27 1988 Unknown [id number] 2.16.840.1.606355.3.579.2.7 27 1988 Unknown [id number] 2.16.840.1.139246.3.579.2.1 75 1988 Unknown [id number] 2.16.840.1.684707.3.579.2.1 244 1988 Unknown [id number] 2.16.840.1.143336.3.579.2.7 27 1988 Unknown [id number] 2.16.840.1.532980.3.579.2.7 27 1988 Unknown [id number] 2.16.840.1.412599.3.579.2.7 27 1988 Unknown [id number] 2.16.840.1.214724.3.579.2.7 27 1988 Unknown [id number] 2.16.840.1.560449.3.579.2.7 27 1988 Unknown [id number] 2.16.840.1.720493.3.579.2.7 27 1988 Unknown [id number] 2.16.840.1.606126.3.579.2.7 27 1988 Unknown [id number] 2.16.840.1.835439.3.579.2.7 27 1988 Unknown [id number] 2.16.840.1.853014.3.579.2.7 27 1988 Unknown [id number] 2.16.840.1.559964.3.579.2.7 27 1988 Unknown [id number] 2.16.840.1.266459.3.579.2.7 27 1988 Unknown [id number] 2.16.840.1.359469.3.579.2.7 27 1988 Unknown [id number] 2.840.1.683898.3.579.2.7 27 1988 Unknown [id number] 2840.1.028342.3.579.2.7 27 1988 Unknown [id number] 2.16.840.1.740172.3.579.2.7 27 1988 Unknown [id number] 2840.1.510979.3.579.2.7 27 1988 Unknown [id number] 2.16840.1.523147.3.579.2.7 27 1988 Unknown [id number] 2840.1.246030.3.579.2.7 27 1988 Unknown [id number] 2.16.840.1.716886.3.579.2.7 27 1988 Unknown [id number] 2.16.840.1.550862.3.579.2.7 27 1988 Unknown [id number] 2.16.840.1.113771.3.579.2.7 27 1988 Unknown [id number] 2.16.840.1.012031.3.579.2.1 259 1988 Unknown [id number] 2.16.840.1.609442.3.579.2.1 259 1988 Unknown [id number] 2.16.840.1.052149.3.579.2.1 259 1988 Unknown [id number] 2.16.840.1.050781.3.579.2.1 259 1988 Unknown [id number] 2.16.840.1.479847.3.579.2.7 27 1988 Unknown [id number] 2.16.840.1.842122.3.579.2.7 27 1988 Unknown [id number] 2.16.840.1.666187.3.579.2.7 27 1988 Unknown [id number] 2.16.840.1.391245.3.579.2.7 27 1988 Unknown [id number] 2.16.840.1.532398.3.579.2.7 27 1959 Medicaid [id number] 1.2.840.263860.1.13.239.2.7 .3.785551.315 1959 Private Health Insurance [id number] 1959 Self-pay [id number] Private Health Insurance Aetna [facility] PFFS M [id number] Unknown [id number] 2.16.840.1.029427.3.579.2.5 31 Unknown [id number] 2.16.840.1.457389.3.579.2.5 31 Unknown [id number] 2.16.840.1.910776.3.579.2.5 31 Unknown [id number] 2.16.840.1.111945.3.579.2.5 31 Unknown [id number] 2.16.840.1.223435.3.579.2.5 31 Social History Date Type Detail Facility Start: 09-28-2020 End: 01-29-2022 Tobacco smoking status NHIS Former smoker [place] Start: 08-12-2022 End: 09-15-2024 History of tobacco use Current smoker [place] Start: 09-28-2020 End: 04-13-2025 Tobacco use and exposure Never used [place] Start: 09-28-2020 End: 04-13-2025 Alcohol intake Current drinker of alcohol (finding) [place] Start: 09-28-2020 End: 07-03-2022 History SDOH Alcohol Frequency 1 [place] Start: 09-28-2020 Alcohol Comment rare [place] Start: 1990 Sex Assigned At Not on file [place] Start: 12-16-2021 End: 09-13-2024 Exposure to SARS-CoV-2 (event) Not sure [place] End: 03-14-2020 History of tobacco use Cigarette Smoker [facility] Work Phone: Start: 09-28-2020 Alcohol Comment rare [facility] Work Phone: Start: 12-26-2021 End: 09-15-2024 Tobacco smoking status NHIS Smokes tobacco daily [facility] Start: 12-26-2021 End: 04-13-2025 Cigarettes smoked current (pack per day) - Reported 1 [facility] Start: 03-18-2010 History SDOH Alcohol Comment beer and wine once a month [facility] Start: 07-01-2021 End: 02-17-2025 Tobacco smoking status Heavy tobacco smoker (finding) [facility] Tobacco smoking status Never [facility] Start: 07-03-2022 End: 04-13-2025 Sex Assigned At Female [facility] Start: 1990 Sex Assigned At Female [facility] Start: 07-03-2022 History SDOH Alcohol Frequency 5 [facility] Start: 07-03-2022 History SDOH Alcohol Std Drinks 4 [facility] Start: 07-03-2022 History SDOH Social Connections Get Together 2 [facility] Start: 07-03-2022 History SDOH Social Connections Living 3 [facility] Do you belong to any clubs or organizations such as methodist groups, unions, fraternal or athletic groups, or school groups? No [facility] Are you now , , , , never or living with a partner? [facility] How often to you hav e a drink containing alcohol? 4 or more times a week [facility] How many standard dr inks containing alcohol do you have on a typical day? 7 to 9 [facility] How often do you hav e 6 or more drinks on 1 occasion? Daily or almost daily [facility] How hard is it for y ou to pay for the very basics like food, housing, medical care, and heating Not very hard [facility] Do you feel stress - tense, restless, nervous, or anxious, or unable to sleep at night because your mind is troubled all the time - these days [OSQ] To some extent [facility] (I/We) worried iqra er (my/our) food would run out before (I/we) got money to buy more. Sometimes true [facility] The food that (I/we) bought just didn't last, and (I/we) didn't have money to get more. Never true [facility] Start: 01-13-2022 Gender identity Identifies as female gender (finding) [facility] Start: 02-06-2022 Sexual orientation Heterosexual (finding) [facility] How often to you hav e a drink containing alcohol? Never [facility] Start: 12-10-2023 Tobacco smoking status NHIS Never smoked tobacco (finding) [facility] Do you feel stress - tense, restless, nervous, or anxious, or unable to sleep at night because your mind is troubled all the time - these days [OSQ] Only a little [facility] Start: 07-04-2024 Alcohol Comment 13 days sober- 07/04/2024 [facility] Start: 08-08-2024 Alcoholic beverage intake Lifetime non-drinker (finding) [facility] Work Phone: Start: 09-11-2024 Sexual orientation Choose not to disclose [facility] Work Phone: How many standard dr inks containing alcohol do you have on a typical day? 3 or 4 [facility] Start: 08-26-2013 End: 09-15-2024 Sex Female (finding) [facility] Sexual Orientation [facility] Medical Equipment Procedure Code Equipment Code Equipment Origin al Text Equipment Identifier Dates Breast Us Core B x Clip [id number] Start: 07-11-2024 Comment on above: Description: Ribbon clip Functional Status Date Assessment Result Facility 01-27-2025 Functional Status N/A [facility] 01-24-2025 Functional Status N/A [facility] 01-13-2025 Functional Status N/A [facility] 11-28-2024 Functional Status N/A [facility] 11-15-2024 Functional Status N/A [facility] 10-18-2024 Functional Status N/A [facility] 03-08-2024 Functional Status N/A [facility] 07-02-2023 Functional Status N/A [facility] 01-15-2023 Functional Status N/A [facility] 11-21-2022 Functional Status No [facility] 11-03-2022 Functional Status N/A [facility] 09-24-2022 Functional Status N/A [facility] 08-22-2022 Functional Status N/A [facility] 08-18-2022 Functional Status N/A [facility] 08-12-2022 Functional status Patient at [facility] Work Phone: 08-08-2022 Functional Status N/A [facility] 07-21-2022 Functional Status N/A [facility] 04-21-2022 Functional Status N/A [facility] 04-20-2022 Functional Status N/A [facility] 04-03-2022 Functional Status N/A [facility] Mental Status Date Assessment Result Facility 08-12-2022 Cognitive function Cognitive Sta tus Patient at Baseline [facility] Work Phone: Clinical Notes 12-24-2020 to 04-26-2025 Aaliyah Zamudio DO - 04/13/2025 10:00 AM EDTShazia Elise NP - 04/09/2025 10:45 AM EDT Note Date & Type Note Facility 04-26-2025 Radiology Diagnostic study note [facility] [place] [address] Ultrasound Report Signed Patient: Shazia Chou MR#: [id number] : 1990 Acct:[id number] Age/Sex: 34 / F ADM Date: 5 Loc: [place] Room: Type: [facility] Attending Dr: Aaliyah Zamudio DO Ordering Provider: Aaliyah Zamudio DO Date of Service: 04/26/25 MM/MM diagnostic mammo LT w/CAD: follow up for Left breast Upper outer quadrant ([id number]) US/US breast LT limited: follow with mamm upper outer quadrant Copies to: Aaliyah Zamudio DO~ DIAGNOSTIC LEFT MAMMOGRAM - FULL FIELD DIGITAL [...] ABNORMALITY TO CORRESPOND TO REPORTED NIPPLE INVERSION. CLINICALCORRELATION RECOMMENDED. ROUTINE FOLLOW-UP IS RECOMMENDED IN ONE YEAR. RESULT CODE: 1 Negative DENSITY CODE: 3 (approximately 51-75% glandular) The breasts are heterogeneouslydense, which may obscure small masses. FOLLOW UP: 1YR The false-negative rate of mammography is approximately 10-percent. Management of a palpable abnormality must be based on clinical grounds. Impression dictated by: Denny Escalante M.D. 04/26/2025 10:15 AM Dictation Location: [facility] Tech: Shazia Mullen; Elena Vaughn Transcribed By: MARKY 04/26/25 1015 Dictated By: Denny Escalante MD 04/26/25 1009 Signed By: 04/26/25 1015 [facility] Work Phone: 04-13-2025 History of Present illness Narrative Images from the original note were not included. Shazia Chou 1990 Shazia Chou is a 34 y.o. female presents with chief complaint of Left breast hypertrophy HPI: CLEMENT Shazia states in June she felt a lump in the left breast, which was biopsied at the [facility] and diagnosed with PASH. She states she can feel the mass and it hurts. She was told at the time to watch the mass and she was never seen by a breast surgeon. She was told to keep an eye on it and did not request any follow up imaging. She lives in [place] and wants to move her care closer to home. Currently she feels the mass has gotten bigger and more painful. She needs to wear here bra at all times including sleeping for comfort. She denies any nipple discharge but it feels wet and looks shiny. She says the nipple is pulling in and there a brown spot next to the nipple. SUBJECTIVE: MEDICATIONS: ALLERGIES Current Outpatient Medications Medication Instructions amoxicillin-clavulanate (Augmentin) 875-125 MG tablet 875 mg, Oral, 2 times daily cyclobenzaprine (Flexeril) 10 MG tablet TAKE 1 TABLET BY MOUTH UP TO 3 TIMES DAILY NEEDED DULoxetine (CYMBALTA) 90 mg, Nightly Ferrous Sulfate (IRON PO) Take by mouth ferrous sulfate 325 mg, Daily with breakfast gabapentin (Neurontin) 300 MG capsule 1 capsule, 3 times daily lamoTRIgine (LAMICTAL) 50 mg, 2 times daily methylPREDNISolone (MEDROL) 4 mg, Daily Multiple Vitamins-Minerals (multivitamin with minerals) tablet 1 tablet, Daily NIFEdipine CC (ADALAT CC) 30 mg, Daily ondansetron (Zofran) 4 MG tablet Take by mouth pantoprazole (PROTONIX) 40 mg, Daily topiramate (TOPAMAX) 25 mg, 2 times daily traZODone (DESYREL) 100 mg, Nightly Vraylar 1.5 MG capsule 1 capsule, Oral, Daily ziprasidone (GEODON) 20 mg, 2 times daily with meals Allergies Allergen Reactions Abilify [Aripiprazole] Coconut (Cocos Nucifera) Buspirone Palpitations PAST MEDICAL HISTORY: SOCIAL HISTORY SURGICAL HISTORY: Past Medical History: Diagnosis Date Borderline personality disorder (HCC) Depression GERD (gastroesophageal reflux disease) Numbness Ulnar neuropathy Weakness Social History Tobacco Use Smoking status: Every Day Types: Cigarettes Substance Use Topics Alcohol use: Yes Alcohol/week: 4.0 standard drinks of alcohol Types: 4 Standard drinks or equivalent per week Past Surgical History: Procedure Laterality Date SECTION, LOW TRANSVERSE GASTRIC BYPASS PARTIAL HYSTERECTOMY 11/2022 FAMILY HISTORY Family History Problem Relation Name Age of Onset Cancer Mother Diabetes Mother Hyperlipidemia Mother Hypertension Mother Stroke Mother ALS Father REVIEW OF SYMPTOMS: Review of Systems Constitutional: Positive for diaphoresis. Negative for unexpected weight change. HENT: Negative for hearing loss, tinnitus and voice change. Breasts: Positive for breast mass (Lft Breast). Respiratory: Positive for shortness of breath. Cardiovascular: Positive for chest pain and palpitations. Gastrointestinal: Positive for nausea. Musculoskeletal: Negative for arthralgias. Neurological: Positive for headaches. Negative for dizziness and seizures. Psychiatric/Behavioral: Depression & Anxiety All other systems reviewed and are negative. Hematological: Negative for adenopathy. Bruises/bleeds easily. OBJECTIVE: Visit Vitals Smoking Status Every Day Physical Exam Exam conducted with a mathematics department chair present. HENT: Head: Normocephalic. Cardiovascular: Rate and Rhythm: Normal rate and regular rhythm. Pulmonary: Effort: Pulmonary effort is normal. Breath sounds: Normal breath sounds. Chest: Comments: Bilateral supraclavicular, infraclavicular, bicipital and axillary lymph nodes were found to be normal. Each breast was examined in the sitting and supine position, there was no evidence of masses, dimpling or discharge in the right breast. In the left breast at the 1:00 position near the anterior axillary line is a 2-3 cm firm area that is only palpable in the sitting position. The area is tender to palpation. The left nipple has a slight horizontal inversion in the supine position but appears normal in the sitting position Abdominal: General: Abdomen is flat. Bowel sounds are normal. Palpations: Abdomen is soft. Skin: General: Skin is warm and dry. Neurological: Mental Status: She is alert. ASSESSMENT AND PLAN: Assessment/Plan Diagnoses and all orders for this visit: Pseudoangiomatous stromal hyperplasia of breast - Left diagnostic mammogram with tomosynthesis; Future - Left breast US limited; Future Hypertrophy of breast - Ambulatory referral to General Surgery - Left diagnostic mammogram with tomosynthesis; Future - Left breast US limited; Future Shazia found a painful mass in the UOQ of the left breast last June. She had imaging that confirmed a focal asymmetry in that area and a subsequent biopsy done at the [facility] confirmed PASH. She was told to just watch the area, but she feel it has gotten larger and is more painful. I will get a left breast mamm and US to see the status of the mass. After imagining is completed we will discuss surgical resection of the mass. I will see her back after the imaging is completed. documented in this encounter [facility] 04-09-2025 History of Present illness Narrative Images from the original note were not included. [address] , [address] [facility], [address] P: [phone] F: [phone] HPI Historian of HPI: patient Shazia Chou is a 34 y.o. female who presents today to the Urgent Care with the following complaints and denials which have been present for 3 days. Pt c/o sore throat, cough, and PND. C/O Denies Symptom Comments [] [x] Runny Nose [x] [] Difficulty Swallowing [x] [] Sore Throat [x] [] Cough [] [x] Ear Pain [] [x] Fever [] [x] Chills [] [x] Nasal Congestion [] [x] Myalgia [] [x] Sinus Pain [] [x] Sinus Pressure Additional Comments: pt has taken viks sore throat spray, tylenol, and mucinex OTC medication without relief ROS A complete system ROS was performed and negative aside from the pertinent positives noted in the HPI and PE. IH Testing: The following tests were performed PCR strep Visit Vitals BP 118/82 Pulse 95 Temp 96.1 F Wt 201 lb SpO2 98% BMI 32.44 kg/m Smoking Status Every Day BSA 2.06 m PHYSICAL EXAM Physical Exam Constitutional: Appearance: Normal appearance. HENT: Head: Normocephalic. Right Ear: Tympanic membrane normal. Left Ear: Tympanic membrane normal. Mouth/Throat: Mouth: Mucous membranes are moist. Pharynx: Posterior oropharyngeal erythema present. Comments: Thick PND Cardiovascular: Rate and Rhythm: Normal rate. Pulmonary: Effort: Pulmonary effort is normal. Breath sounds: Normal breath sounds. Lymphadenopathy: Cervical: No cervical adenopathy. Skin: General: Skin is warm and dry. Neurological: Mental Status: She is alert and oriented to person, place, and time. Psychiatric: Mood and Affect: Mood normal. TREATMENT PLAN 1. Pharyngitis, unspecified etiology Discussed test results with patient. - STREP DNA PROBE - amoxicillin-clavulanate (Augmentin) 875-125 MG tablet; Take 1 tablet (875 mg) by mouth in the morning and 1 tablet (875 mg) before bedtime. Do all this for 10 days. Dispense: 20 tablet; Refill: 0 2. Acute pharyngitis, unspecified etiology (Primary) Strep test was negative today. Based on exam findings will treat as directed. Encouraged patient to drink plenty of water and get plenty of rest. Patient is to gargle with salt water or mouthwash of choice a few times a day. Can take Tylenol/Motrin for discomfort. Can use cough drops, chloraseptic sprays prn. Warm tea with honey can help to soothe the throat. Patient is to avoid sharing food or drinks and is to wash hands frequently. Follow up in one week if no improvement. - amoxicillin-clavulanate (Augmentin) 875-125 MG tablet; Take 1 tablet (875 mg) by mouth in the morning and 1 tablet (875 mg) before bedtime. Do all this for 10 days. Dispense: 20 tablet; Refill: 0 Follow up if symptoms worsen or fail to improve. Shazia Elise NP documented in this encounter [facility] 03-29-2025 Note Pulmonology Office/Shaneka umaña Note History [...] Study Baseline Follow-up With When Contact Information Narcisa BHAKTA, Sami Longoria, PUL, GREER [address] [facility] [place] [address]- Additional Instructions: after his testing is completed [...] plantar fasciotomy (02/16/20 (more content not included)... [facility] Comment on above: Result Comment: Elec tronically Signed By: Narcisa BHAKTA, Sami Longoria\.br\Date and Time Signed: 03/29/25 11:39 EDT 03-09-2025 [...] Appointments Appointment Date:03/13/2025 11:30:00 AM Scheduled Provider: Location:[facility] Appointment Type:NM Myocard Spect Multi Rest/Stress-Res [...] NM Myocardial Spect Rest/Stress 1 Day 03/13/25 [facility] 06-26-2025 NoteConsultation Note Patient is presenting [...] call with any questions or concerns that arise.[facility]:Result Comment: Electronically Signed By: Babar [...] The patient agrees to continue currently prescribed/recommended therapies.[facility]: Result Comment: Electronically Signed By: Babar Mayers DO.br\Date and Time Signed: 03/03/25 08:46 [id number] Hospital Discharge instructions Patient Education 02/17/2025 21:08:51 [...] Follow these instructions at home: Medicines Take ifxr-zkw-yzdltve and prescription medicines only as told by [...] provider. Document Revised: 01/09/2022 Document Reviewed: 01/09/2022 [employer] Patient Education 2023 [employer]. 02/17/2025 21:08:51 Acute Bronchitis, Adult Acute Bronchitis, [...] condition. Follow these instructions at home: Take ykyb-frk-jngahwl and prescription medicines only as told by [...] and water are not available, use hand wildlife management professor. Avoid contact with people who have cold [...] it is easier to cough up. Take fvsk-vip-jhwkauz and prescription medicines only as told by [...] provider. Document Revised: 12/11/2022 Document Reviewed: 01/01/2022 [employer] Patient Education 2023 [employer]. Follow Up Care 02/17/2025 18:54:28 With:Jennie Durand Address: [facility] [address], [address], [facility] [address] [place] [address]- Business (1) When:02/20/2025 20:12:05 [facility] 06-06-2025 NoteED Patient Education Note Neurology [...] these instructions at home: Medicines ??? Take bees-cmc-ouhxtwo and prescription medicines only as told by [...] provider. Document Revised: 01/09/2022 Document Reviewed: 01/09/2022 [employer] Patient Education ? 2023 [employer]. Pulmonary Medicine Acute Bronchitis, Adult Acute bronchitis [...] the common cold. ??? (more content not included)...[facility]06-02-2025 Telephone encounter Note* Telephone Encounter - Tevin Carson DO - 02/13/2025 8:56 AM EDT Needs follow-up Tevin Carson DO [facility]06-02-2025 Miscellaneous Notes* Telephone Encounter - Tevin Carson [...] advise. Madeline Teixeira MA [facility] encounter Note * Telephone Encounter - Madeline Teixeira MA - 02/11/2025 10:13 AM EDT Last OV 07/25/2024 ..Pharmacy escripts requesting the following refill: Requested Prescriptions Pending Prescriptions Disp Refills lamoTRIgine (LAMICTAL) 25 mg tablet [Pharmacy Med Name: LAMOTRIGINE 25 MG TABLET] 360 tablet 0 Sig: TAKE 2 TABLETS BY MOUTH TWICE A DAY Please review and advise. Madeline Teixeira MA [facility]05-30-2025 NoteEchocardiology Procedure Exam Date/Time Accession # Ordering Dr. Woods Transthoracic 02/09/2025 11:26 EDT [id number] MOLLY GREGORIO CNP Complete CPT code 10907 77497 Reason for Exam (Echo Transthoracic Complete) Palpitations R00.2 Report [facility] [address] [place] [address] Adult Echocardiogram Report Name: SHAZIA CHOU Study Date: 02/09/2025 10:52 AM BP: 135/99 mmHg Patient Location: [facility] Ambulatory(s) [facility] HR: 65 : 1990 Gender: Female Height: 67 in Age: 34 yrs Ethnicity: [facility] Weight: 205 lb Reason For Study: Palpitations R00.2 BSA: 2.0 m2 History: HTN,Smoker-Yes Ordering Physician: BERNARD^MOLLY Referring Physician: MOLLY GREGORIO Performed By: Candis Matthews, JHOAN, RVT Interpretation [...] Fernandez Daniels MD Transcribed by: GINA Technologist: [facility]05-16-2025 Evaluation + Plan noteExtracted from: Title:Pain Managment [...] training to prevent future risk of falling. [facility] 05-16-2025 NoteConsultation Note Patient: SHAZIA CHOU [...] TID, # 90 tab(s), Refills(s) 2, Pharmacy: [facility]/pharmacy #[id number], 170, cm, 01/13/25 8:29:00 EDT, [...] All Problems Bipolar disorder / SNOMED CT 61904159 / Confirmed Pancreatic mass / SNOMED CT 6416815181 / Confirmed Smoker / SNOMED CT 869192567 / Confirmed Added secondary to documentation in Social History. Borderline personality disorder / SNOMED CT 12437463 / Confirmed History of bypass of stomach / SNOMED CT 6099695944 / Confirmed Vitamin D deficiency / SNOMED CT 25971214 / Confirmed Left breast mass / SNOMED CT 949966383 / Confirmed Hypertension / SNOMED CT 1335740775 / Confirmed Overweight (BMI 25.0-29.9) / SNOMED CT 9798399419 / Confirmed Muscle weakness-general / SNOMED CT 82339988 / Confirmed Chronic pain syndrome / SNOMED CT 5701119042 / Confirmed Iron deficiency anemia / SNOMED CT 438411924 / Confirmed noted in 09/16/2024 [facility] Records page 5. added per OP CDI policy. Alcohol abuse, uncomplicated / SNOMED CT 03656194 / Confirmed BMI 31.0-31.9,adult / SNOMED CT 747162522 / Confirmed Obesity (BMI 30-39.9) / SNOMED CT 830974677 / Confirmed Resolved: / SNOMED CT 374163570 Resolved: / SNOMED CT 897438277 Resolved: / SNOMED CT 421261400 Resolved: Alcohol abuse / SNOMED CT 30486912 Canceled: Anxiety and depression / SNOMED CT 23363288 Canceled: Plantar fasciitis of left foot / SNOMED CT 317326916 Canceled: Intracranial hypertension / SNOMED CT 220664268 Canceled: Smoker / SNOMED CT [id number] Added secondary to documentation in Social History. Canceled: Class 1 obesity with body mass index (BMI) of 32.0 to 32.9 in adult / SNOMED CT 4060416859 Canceled: Anxiety / SNOMED CT 68911096 Canceled: Depression / SNOMED CT 30678576 Canceled: Borderline personality disorder / SNOMED CT 91319458 Canceled: Class 1 obesity with body mass index (BMI) of 30.0 to 30.9 in adult / SNOMED CT 9484467689 Canceled: Former smoker / SNOMED CT 61385485 Canceled: Grief reaction / SNOMED CT 154493612 Canceled: Overweight with body mass index (BMI) of 29 to 29.9 in adult / SNOMED CT 9780707851 Canceled: Disorder of oral soft tissue / SNOMED CT 0560193630 Canceled: Intentional benzodiazepine overdose / SNOMED CT 7440359566 Canceled: Omental infarction / SNOMED CT 033591089 Canceled: Axillary (more content not included)...[facility] Comment on above:Result Comment: Electronically Signed By: Meme Kate PA-C\Date and Time Signed: 01/27/25 10:38 [id number] NoteOperative Report Diagnosis: m47.816, lumbar spondyloarthropathy Procedure: [...] The patient agrees to continue currently prescribed/recommended therapies.[facility]: Result Comment: Electronically Signed By: Babar Mayers DO\Date and Time Signed: 01/24/25 09:58 [id number] Evaluation + Plan noteExtracted from: Title:Pain Managment [...] treatments including physical therapy in the past, gttn-chi-tvdgszk anti-inflammatory medications and the recent injection helped [...] 09:15:00 AM Scheduled Provider: Location:.[facility]ICAL [place] Appointment Type:FLY Rendon () [facility] 05-02-2025 NoteConsultation Note Patient: SHAZIA CHOU [...] been working full- time. She works at [employer] and they were running a special where they went back to the prices from the and she states that everybody was ordering [employer] and then everybody called off and she worked for over 12 hours. She states that it was miserable. At this time, she has back pain that she rates a 7/10 but it can get up to a 10/10 with walking, standing, being upright and active. She feels like the Lyrica did not help her so she went back to [facility]. She is using 600 mg usually only [...] BID, # 6 tab(s), Refills(s) 1, Pharmacy: [facility]/pharmacy #[id number], 162, cm, 08/08/22 9:11:00 EST, Height/Length Dosing, 83.1, kg, 08/08/22 9:11:00 EST, Weight Dosing pregabalin 50 mg Cap: 50 mg = 1 cap(s), Oral, BID, X 30 day(s), # 60 cap(s), Refills(s) 1, Pharmacy: [facility]/pharmacy #[id number], 170, cm, 11/15/24 13:59:00 EST, [...] All Problems Bipolar disorder / SNOMED CT 01492377 / Confirmed Pancreatic mass / SNOMED CT 9723388901 / Confirmed Smoker / SNOMED CT 581689149 / Confirmed Added secondary to documentation in Social History. Borderline personality disorder / SNOMED CT 08623501 / Confirmed History of bypass of stomach / SNOMED CT 2951669432 / Confirmed Vitamin D deficiency / SNOMED CT 79614579 / Confirmed Left breast mass / SNOMED CT 608255325 / Confirmed Hypertension / SNOMED CT 0407452044 / Confirmed Overweight (BMI 25.0-29.9) / SNOMED CT 4650173767 / Confirmed Muscle weakness-general / SNOMED CT 66765658 / Confirmed Chronic pain syndrome / SNOMED CT 2622899893 / Confirmed Iron deficiency anemia / SNOMED CT 646856219 / Confirmed noted in 09/16/2024 [facility] Records page 5. added per OP CDI policy. Alcohol abuse, uncomplicated / SNOMED CT 66953712 / Confirmed BMI 31.0-31.9,adult / SNOMED CT 749398921 / Confirmed Obesity (BMI 30-39.9) / SNOMED CT 055843649 / Confirmed Resolved: / SNOMED CT 174401011 Resolved: / SNOMED CT 343472920 Resolved: / SNOMED CT 809503601 Resolved: Alcohol abuse / SNOMED CT 10069407 Canceled: Anxiety and depression / SNOMED CT 73985877 Canceled: Plantar fasciitis of left foot / SNOMED CT 362368031 Canceled: Intracranial hypertension / SNOMED CT 815740698 Canceled: Smoker / SNOMED CT [id number] Added secondary to documentation in Social History. Canceled: Class 1 obesity with body mass index (BMI) of 32.0 to 32.9 in adult / SNOMED CT 4907637888 Canceled: Anxiety / SNOMED CT 31139930 Canceled: Depression / SNOMED CT 68616398 Canceled: Borderline personality disorder / SNOMED CT 30884005 Canceled: Class 1 obesity with body mass index (BMI) of 30.0 to 30.9 in adult / SNOMED CT 7544359095 Canceled: Former smoker / SNOMED CT 13690070 Canceled: Grief reaction / SNOMED CT 955628706 Canceled: Overweight with body mass index (BMI) of 29 to 29.9 in adult / SNOMED CT 3824667985 Cance (more content not included)...[facility]: Result Comment: Electronically Signed By: Humble GERONIMO, Orlando\.br\Date and Time Signed: 01/13/25 08:44 [id number] Evaluation + Plan noteExtracted from: Title:Bilateral lumbar [...] Date:01/27/2025 10:15:00 AM Scheduled Provider:Orlando Kate PA-C Location:[facility] Appointment Type:Pain Management - Follow Up (FT) [facility] 04-05-2025 Evaluation + Plan noteExtracted from: [...] Date:03/09/2025 12:30:00 PM Scheduled Provider:Babar Mayers DO Location[facility] Appointment Type:Pain Management - Follow Up (FT) Appointment Date:03/13/2025 11:30:00 AM Scheduled Provider: [facility] Type:NM Myocard Spect Multi Rest/Stress-Res Appointment Date:03/13/2025 12:30:00 PM Scheduled Provider: [facility] Type:NM Myocard Spect Multi Rest/Stress - R Appointment Date:03/13/2025 01:00:00 PM Scheduled Provider: [facility] Type:NM Myocard Spect Multi Rest/Stress-Str Appointment Date:03/13/2025 02:00:00 PM Scheduled Provider: Location:[facility] Appointment Type:NM Myocar Spect Multi Rest/Stress - St Appointment Date:03/16/2025 02:30:00 PM Scheduled Provider:Jak Peace MD Location:[facility] Appointment Type:Cardiology Follow Up (FT) Future Scheduled Tests Radiology* NM Myocardial Spect Rest/Stress 1 Day 03/13/25 [facility] [id number] Evaluation + Plan noteExtracted from: Title:Left L5/S1 [...] AM Scheduled Provider:Orlando Kate PA-C Location:[facility] [place] Appointment Type:Pain Management - Follow Up (FT) Future Scheduled Tests Radiology* US Abdomen, Limited 11/29/24 [facility] [id number] NoteOperative Report Diagnosis: m54.16, lumbar radiculopathy Procedure: [...] and agrees to comply to currently prescribed/recommended therapies.[facility] Comment on above:Result Comment: Electronically Signed By: Babar Mayers DO\.br\Date and Time Signed: 11/28/24 10:22 [id number] NoteConsultation Note Patient: SHAZIA CHOU Age: 33 [...] all conservative treatments first. She has taken malo-krp-ubcybue medication without any long-term relief. She states that her left leg pain affects her quality of life and affects her activities. 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 She is hopeful to be able to [...] All Problems Bipolar disorder / SNOMED CT 24693399 / Confirmed Pancreatic mass / SNOMED CT 3349827420 / Confirmed Smoker / SNOMED CT 102449512 / Confirmed Added secondary to documentation in Social History. Borderline personality disorder / SNOMED CT 45139555 / Confirmed History of bypass of stomach / SNOMED CT 3805785890 / Confirmed Vitamin D deficiency / SNOMED CT 45077100 / Confirmed Left breast mass / SNOMED CT 757309874 / Confirmed Hypertension / SNOMED CT 4353343439 / Confirmed Overweight (BMI 25.0-29.9) / SNOMED CT 6725423048 / Confirmed Muscle weakness-general / SNOMED CT 53382837 / Confirmed Chronic pain syndrome / SNOMED CT 2468323893 / Confirmed Iron deficiency anemia / SNOMED CT 044383110 / Confirmed noted in 09/16/2024 [facility] Records page 5. added per OP CDI policy. Alcohol abuse, uncomplicated / SNOMED CT 50849960 / Confirmed BMI 31.0-31.9,adult / SNOMED CT 348025963 / Confirmed Obesity (BMI 30-39.9) / SNOMED CT 494955624 / Confirmed Resolved: / SNOMED CT 840046626 Resolved: / SNOMED CT 682445435 Resolved: / SNOMED CT 180878753 Resolved: Alcohol abuse / SNOMED CT 63366621 Canceled: Anxiety and depression / SNOMED CT 59040715 Canceled: Plantar fasciitis of left foot / SNOMED CT 585893164 Canceled: Intracranial hypertension / SNOMED CT 549221321 Canceled: Smoker / SNOMED CT [id number] Added secondary to documentation in Social History. Canceled: Class 1 obesity with body mass index (BMI) of 32.0 to 32.9 in adult / SNOMED CT 2784957311 Canceled: Anxiety / SNOMED CT 73487734 Canceled: Depression / SNOMED CT 59835285 Canceled: Borderline personality disorder / SNOMED CT 26436031 Canceled: Class 1 obesity with body mass index (BMI) of 30.0 to 30.9 in adult / SNOMED CT 3782762899 Canceled: Former smoker / SNOMED CT 40121059 Canceled: Grief reaction / SNOMED CT 731178286 Canceled: Overweight with body mass index (BMI) of 29 to 29.9 in adult / SNOMED CT 5953644288 Canceled: Disorder of oral soft tissue / SNOMED CT 8262580373 Canceled: Intentional benzodiazepine overdose / SNOMED CT 0977068732 Canceled: Omental infarction / SNOMED CT 488585023 Canceled: Axillary lymphadenopathy / SNOMED CT 043182 Canceled: BMI 28.0-28.9,adult / SNOMED CT 2069367410 Canceled: Over weight / SNOMED CT 391780639 Canceled: Leukocytosis / SNOMED CT 652161733 Canceled: BMI 29.0-29.9,adult / SNOMED CT 3266996133 Canceled: Headache after spinal puncture / SNOMED CT 310947175 Canceled: Trapezius muscle spasm / SNOMED CT 6877185992 Canceled: Recovering alcoholic (more content not included)...[facility]Comment on above:Result Comment: Electronically Signed By: Orlando Kate PA-C\.br\Date and Time Signed: 11/15/24 14:14 [id number] Evaluation + Plan noteExtracted from: Title:Pain Managment [...] clinic sooner if necessary. NOAH score: 42%. [facility] 02-04-2025 Evaluation + Plan noteExtracted from: Title:ED Note Author:Beto Shea PA-C te:10/18/24 Chronic pain (G89.29: Other chronic pain) Orders: ketorolac, 60 mg = 2 mL, Injection, IntraMuscular, Once PRN Pain, STAT, Start date 10/18/24 8:31:00 EST, 10/18/24 8:31:00 EST methocarbamol, 1,500 mg = 2 tab(s), Oral, TID, X 3 day(s), # 18 tab(s), Refills(s) 0, [id number], 170, cm, 10/18/24 8:12:00 EST, Height/Length Dosing, 90, kg, 10/18/24 8:12:00 EST, Weight Dosing predniSONE, 60 mg = 3 tab(s), Oral, Daily, X 7 day(s), # 21 tab(s), Refills(s) 0, [id number], 170, cm, 10/18/24 8:12:00 EST, Height/Length Dosing, 90, kg, 10/18/24 8:12:00 EST, Weight Dosing Future Appointments Appointment Date:11/18/2024 08:00:00 AM Scheduled Provider:KURT BALBUENA CNP Location:[facility] Appointment Type:[facility] 02-04-2025 Hospital Discharge instructions Patient Education 10/18/2024 [...] your skin (aromatherapy). Other treatments may include: Khpl-nwy-hakmywy or prescription medicines. Color, light, or sound therapy. Local electrical stimulation. The electrical pulses help to relieve pain by temporarily stopping the nerve impulses that cause you to feel pain. Injections. These deliver numbing or pain-relieving medicines into the spine or the area of pain. Medicines Take ygie-qsw-qcsjwio and prescription medicines only as told by your health care provider. Ask your health care provider if the medicine prescribed to you: ?Requires you to avoid driving or using machinery. ?Can cause constipation. You may need to take these actions to prevent or treat constipation: ?Drink enough fluid to keep your urine pale yellow. ?Take mipc-yxp-wfoabii or prescription medicines. ?Eat foods that are [...] the National Suicide Prevention Lifeline at or 333. This is open 24 hours a day. Text the Crisis Text Line at 710172. This information is not intended to replace advice given to you by your health care provider. Make sure you discuss any questions you have with your health care provider. Document Revised: 04/22/2023 Document Reviewed: 03/25/2023 Sunfun Info Patient Education 2023 CitalDoc. Follow Up Care 10/18/2024 08:05:45 With:KURT BALBUENA Address: [address] [place] [id number] Business (1) When:10/21/2024 08:32:28 [facility] 02-04-2025 NoteED Patient Education Note Mental [...] skin (aromatherapy). Other treatments may include: ??? Grpq-msx-lcvczwa or prescription medicines. ??? Color, light, or sound therapy. ??? Local electrical stimulation. The electrical pulses help to relieve pain by temporarily stopping the nerve impulses that cause you to feel pain. ??? Injections. These deliver numbing or pain-relieving medicines into the spine or the area of pain. Medicines ??? Take pvrz-zls-msswsgt and prescription medicines only as told by your health care provider. ??? Ask your health care provider if the medicine prescribed to you: ? Requires you to avoid driving or using machinery. ? Can cause constipation. You may need to take these actions to prevent or treat constipation: ? Drink enough fluid to keep your urine pale yellow. ? Take kndi-pbr-wjmacqz or prescription medicines. ? Eat foods that [...] the National Suicide Prevention Lifeline at or 703. This is open 24 hours aday. ??? Text the Crisis Text Line at 510214. This information is not intended to replace advice given to you by your health care provider. Make sure you discuss any questions you have with your health care provider. Document Revised: 04/22/2023 Document Reviewed: 03/25/2023 Sunfun Info Patient Education ? 2023 CitalDoc.[facility] 10-17-2024 NoteHNO ID: [id number] Author: MELISSA GOLD MA Service: ? Author Type: Income Tax Expert Type: Progress Notes Filed: 10/17/2024 12:28 Note [...] or unnecessary to reach patient: Left message Microtunehart message sent HCC related Navigation Signature: Melissa Gold MA October 17, 2024 12:23 [facility]02-03-2025 History of Present illness Narrative* Melissa Gold [...] or unnecessary to reach patient: Left message Microtunehart message sent HCC related Navigation Signature: Melissa Gold MA October 17, 2024 12:23 PM documented in this encounterProtestant [facility]acon[facility]02-03-2025 NotePatient Outreach (NETNAV) SHAZIA CHOU ([id number]) 1990 F Date Time Provider Department 10/17/24 [...] or unnecessary to reach patient: Left message Microtunehart message sent HCC related Navigation Signature: Melissa [...] mg by mouth daily at bedtime. - plqbeyrxaszc-nbu-gejz-FA-vit K (BARIATRIC MULTIVITAMINS) 45 mg iron- 800 [...] 03/08/2024 Encounter Status:Closed by MELISSA GOLD on 10/17/24[facility]01-[facility] NotePatient Education Mental and Behavioral [...] plan to use machinery, such as a barrel liner or power tool. ? You have a [...] if you drink too much. ??? [facility] Alcohol [facility] Referral Service: 2-477-112-HELP (6536) ??? Alcoholics Anonymous, Alcoholics Resource Center: ??? Substance Abuse and Mental Health Services Administration: sama.gov Where to find more information: ??? Centers for Disease Control and Prevention: cdc.gov ??? National [place] on Alcohol Abuse and Alcoholism: niaaa.nih.gov/alcohol Contact [...] the National Suicide Prevention Lifeline at or 732. This is open 24 hours aday. ??? Text the Crisis Text Line at 494530. Summary ??? Binge-drinking refers to drinking a large amount of alcohol in a short time. This is usually 5 drinks for men or 4 drinks for women, on one occasion. ??? Binge-drinking can lead to serious health problems, such as heart dise (more content not included)...[facility]01-17-2025 NotePatient Education Mental and Behavioral Health Chronic [...] skin (aromatherapy). Other treatments may include: ??? Lpgl-thi-zempvzo or prescription medicines. ??? Color, light, or sound therapy. ??? Local electrical stimulation. The electrical pulses help to relieve pain by temporarily stopping the nerve impulses that cause you to feel pain. ??? Injections. These deliver numbing or pain-relieving medicines into the spine or the area of pain. Medicines ??? Take knqf-qdg-nbqrjxz and prescription medicines only as told by your health care provider. ??? Ask your health care provider if the medicine prescribed to you: ? Requires you to avoid driving or using machinery. ? Can cause constipation. You may need to take these actions to prevent or treat constipation: ? Drink enough fluid to keep your urine pale yellow. ? Take fqqj-qfw-qucvyks or prescription medicines. ? Eat foods that [...] the National Suicide Prevention Lifeline at or 995. This is open 24 hours aday. ??? Text the Crisis Text Line at 191219. This information is not intended to replace advice given to you by your health care provider. Make sure you discuss any questions you have with your health care provider. Document Revised: 04/22/2023 Document Reviewed: 03/25/2023 Elsevier Patient Education ? 2023 Sunfun Info Inc.[facility] 09-27-2024 History of Present illness Narrative* Corby Larsen DO - 09/27/2024 2:00 PM EST Images from the original note were not included. Reason for Appointment: EMG Patient: Shazia Chou : 1990 EMG Computer: Fromlab Referring Physician: Dr. Corby Larsen EMG: MILTON data transcriber: Saúl DAWN(R) Office Location: [place] Reason for EMG: c/o weakness in bilateral [...] nature of the test. documented in this encounterUniversity HospitalKgymhhzxxy44-31-8393 History of Present illness Narrative* Corby Larsen [...] typically knows very well. She works at [employer] and will forget what goes on pizzas [...] , wrist extensors , wrist flexor , certified detention deputy strength 5/5. LUE Strength deltoid , biceps , triceps , wrist extensors , wrist flexor , certified detention deputy strength 5/5. RLE Strength illopsoas, quadriceps, tibialis [...] lower extremities on 07/09/23: Normal LP at [facility] on 08/19/22: Opening pressure of 23 cm of CSF, CSF testing was unremarkable MRI brain and MR venogram on 08/11/22 at [facility]: unremarkable. Assessment/Plan Diagnoses and all orders for this visit: Ataxia It is my impression that patient has abnormal bsodwk-rj-zncn testing and feels like she is walking [...] without contrast. We will do this at [facility] for comparison. Paresthesia Patient continues to complain [...] of mental health issues documented in this encounterUniversity HospitalYizvsjyxvd47-90-0255 Evaluation + Plan note Diagnostic Tests Pending * Vitamin A Level 09/20/24 [facility] [id number] Radiology Diagnostic study noteSELECT [facility] [place] [address] [place] [address] CT Scan Report Signed Patient: Shazia Chou MR#: [id number] : 1990 Acct:[id number] Age/Sex: 33 / F ADM Date: 5 Loc: ER Room: Type: [facility] ER Attending Dr: Copies to: Sailaja Anderson APRN~ Ordering Provider: Sailaja Anderson APRN Date of Service: 09/15/24 CT/CT angio head: weakness ([id number]) CT/CT angio neck: weakness ([id number]) CT/CT head/brain wo con: weakness CT head/brain [...] Wiley Shetty M.D.09/15/2024 3:56 PM Dictation Location: [place] [address] Transcribed By: [facility] 09/15/24 2946 Dictated By: Wiley Shetty II, MD 09/15/24 1546 Signed By: 09/15/24 1556 [facility] Work Phone: 1(449) 816-436501-02-2025 NotePatient Education Mental and Behavioral Health Myofascial [...] these instructions at home: Medicines ??? Take lsgl-lax-xpptprl and prescription medicines only as told by your health care provider. ??? Ask your health care provider if the medicine prescribed to you: ? Requires you to avoid driving or using machinery. ? Can cause constipation. You may need to take these actions to prevent or treat constipation: ? Drink enough fluid to keep your urine pale yellow. ? Take mjwa-uwg-qcvsalr or prescription medicines. ? Eat foods that [...] ??? Do not use (more content not included)...[facility] 09-13-2024 Miscellaneous Notes* Result Encounter Note - Aleah Howard MD - 09/13/2024 9:45 AM EST Shazia your echocardiogram shows normal heart pump function and valves, we will discuss more at upcoming visit. documented in this encounterAkron Children's Hospital Work Phone: 1(775) 444-176012-31-2024 Progress note* Result Encounter Note - Aleah Howard MD - 09/13/2024 9:45 AM EST Shazia your echocardiogram shows normal heart pump function and valves, we will discuss more at upcoming visit. [facility] Work Phone: 1(493) 481-744112-23-2024 Telephone encounter Note* Telephone Encounter - Hilda Lemos RN - 09/05/2024 10:07 AM EST S- patient asked PCP to review labs B- recent ER visit 08/27/24 A- uploaded care everywhere. ER follow up phone call. R- Follow up scheduled 09/13 At [place] [facility]. Lipase 271 at [place] Concerned about Iron and Benzie reports. Patient will screenshot and send her lab work from the other hospitals in a MC message CALL FOR ER FOLLOW UP: On this date and time, Shazia was seen at 08/27/24 at [facility] 08/22/24 at [facility] How is patient doing now? Lipase 271 at [place] Concerned about Iron and Benzie reports. Patient will screenshot and send her [...] updated care everywhere. RX: none Hilda KHALIL photo mask cleaner of Dr. [facility] [address] [place] [address] phone [phone] fax [facility]12-23-2024 Miscellaneous Notes* Telephone Encounter - Hilda Lemos RN - 09/05/2024 10:07 AM EST S- patient asked PCP to review labs B- recent ER visit 08/27/24 A- uploaded care everywhere. ER follow up phone call. R- Follow up scheduled 09/13 At [facility]. Lipase 271 at [place] Concerned about Iron and Benzie reports. Patient will screenshot and send her lab work from the other hospitals in a Sonda41 message CALL FOR ER FOLLOW UP: On this date and time, Shazia was seen at 08/27/24 at [facility] 08/22/24 at [facility] How is patient doing now? Lipase 271 at [place] Concerned about Iron and Benzie reports. Patient will screenshot and send her [...] updated care everywhere. RX: none Hilda KHALIL photo mask cleaner of [facility] [address] [place] [address] phone [phone] fax documented in this encounterProtestant Deaconess Hospital12-12-2024 NoteHNO ID: [id number] Author: MARY JO TRINIDAD RN Service: ? [...] Chart review only. Signature: Mary Jo Trinidad [facility]12-[facility]-2024 History of Present illness Narrative* [...] 08-22-24 OTHER FINDINGS/SUMMARY: None Patient Attributed To: EULALIOE Payer: Mauricio HAMMOND Action Taken: No action needed. Contact made with patient: No, Chart review only. Signature: Mary Jo Trinidad RN documented in this encounterProtestant Deaconess Hospital12-12-2024 NotePatient Outreach (AMBCMG) CASSIASHAZIA MALDONADO ([id number]) 1990 F Date Time Provider Department 08/25/24 [...] Chou was seen for. 06-12-24 07-02-24 07-22-24 08-15-24-9-24 OTHER FINDINGS/SUMMARY: None Patient Attributed To: QAE [...] Assessed Reason for Visit: ACM EDYTA RN [2002] Cmt: ED Utilization Review per request of [...] mg by mouth daily at bedtime. - lgsggtlsizyi-vur-sgpg-FA-vit K (BARIATRIC MULTIVITAMINS) 45 mg iron- 800 [...] Encounter Status:Closed by MARY JO TRINIDAD on 08/25/24[facility]12-05-[facility] Evaluation + Plan note Diagnostic Tests Pending * EBV Antibody Profile 08/18/24 * Jazmin Teixeira Ab Early Antigen 08/18/24 [facility] [id number] Telephone encounter Note* Telephone Encounter - Tevin Carson DO - 08/17/2024 3:12 PM EST The following approved medication requests have been transmitted electronically. Requested Prescriptions Pending Prescriptions Disp Refills lamoTRIgine (LAMICTAL) 25 mg tablet [Pharmacy Med Name: LAMOTRIGINE 25 MG TABLET] 360 tablet 0 Sig: Take 2 tablets by mouth two times a day. Tevin Carson DO [facility]12-04-2024 Miscellaneous Notes* Telephone Encounter - Tevin Carson [...] advise. Jacinda Arreola MA, documented in this encounterProtestant Deaconess Hospital12-04-2024 Telephone encounter Note * Telephone Encounter - Jacinda Arreola MA - 08/17/2024 2:42 PM EST Pt last seen 07/25/24. Pharmacy electronically requesting refills as follows: Requested Prescriptions Pending Prescriptions Disp Refills lamoTRIgine (LAMICTAL) 25 mg tablet [Pharmacy Med Name: LAMOTRIGINE 25 MG TABLET] 360 tablet 1 Sig: TAKE 2 TABLETS BY MOUTH TWICE A DAY Please review and advise. Jacinda Arreola MA, [facility]12-03-2024 NoteNormal sinus rhythm at 75 bpm normal intervals abnormal R wave progression cannot exclude previous anterior septal myocardial infarction, 1 ventricular premature beat is noted. Compared to the EKG from 07/01/2024, there was 1 ventricular premature beat noted on the current EKG.[id number] History of Present illness Narrative* Aleah Howard MD - 08/08/2024 3:15 PM EST Referred by No ref. 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 She is status post partial hysterectomy. [...] lamoTRIgine (LAMICTAL) 50 mg, 2 times daily pntjzdyccycf-udk-dyni-FA-vit K (Bariatric Multivitamins) 45 mg iron- 800 [...] already been to the emergency room in [place] for her symptoms. Follow-up after testing Discussed [...] exam, discussion and plan. documented in this [facility] Work Phone: 1(387) 413-984711-25-2024 Instructions* Patient Instructions* Rita Knowles LPN - [...] Provided instructions on exercise. documented in this [facility] Work Phone: 1(915) 774-876511-11-2024 NoteHNO ID: [id number] Author: TEVIN CARSON, DO Service: ? Author Type: Physician Type: Progress Notes Filed: 07/25/2024 16:57 Note Text: [facility] Family Medicine Visit Assessment and Plan 1. [...] appointment. 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 ROS: As per HPI. [...] Mood and Affect: Mood normal. Behavior: Behavior normal.[facility]11-11-20[facility] History of Present illness Narrative* Tevin Carson DO - 07/25/2024 3:07 PM EST [facility] Medicine Visit Assessment and Plan [...] appointment. 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 ROS: As per HPI. [...] normal. Behavior: Behavior normal. documented in this encounterProtestant Deaconess Hospital11-08-2024 Telephone encounter Note * Telephone Encounter - Tevin Carson DO - 07/22/2024 12:27 PM EST Agree with in office evaluation, needs to go to ED if symptoms worsen Tevin Carson DO [facility] Work Phone: 1(271) 905-989511-08-2024 Miscellaneous Notes* Telephone Encounter - Tevin Carson [...] s/p hyster Protocols used: Anxiety and Panic Yfqpbm-MMHHS-BV Request/Response - Patient scheduled for ThursdayJul [address] Carson (20 minutes). Patient is alsoscheduled for 40 minutes on ThursdayJul [address] Carson. I did not cancel the Thursday appt in case a 40 min follow up would be appropriate. Please advise if needed. documented in this encounterProtestant Deaconess Hospital11-08-2024 Telephone encounter Note * Telephone Encounter - [...] s/p hyster Protocols used: Anxiety and Panic Tjpbxq-HTUWB-VS Request/Response - Patient scheduled for ThursdayJul [address] Carson (20 minutes). Patient is alsoscheduled for 40 minutes on ThursdayJul [address] Carson. I did not cancel the Thursday appt in case a 40 min follow up would be appropriate. Please advise if needed. [facility]11-08-2024 Telephone encounter Note* Telephone Encounter - Hilda Lemos RN - 07/22/2024 11:34 AM EST See nurse triage encounter. [facility]11-08-2024 Miscellaneous Notes* Telephone Encounter - Hilda Lemos RN - 07/22/2024 11:34 AM EST See nurse triage encounter. documented in this encounterProtestant Deaconess Hospital10-28-2024 Instructions* Patient Education - Ev Lindsey RT(Nirav) - 07/11/2024 9:29 AM EDT Post procedure written instructions were given to patient. [facility]10-28-2024 Miscellaneous Notes* Patient Education - Ev Lindsey RT(Nirav) - 07/11/2024 9:29 AM EDT Post procedure written instructions were given to patient. documented in this encounterProtestant Deaconess Hospital10-28-2024 NoteHNO ID: [id number] Author: EV LINDSEY RT(R) Service: Radiology Author Type: Campus Safety Officer Type: Patient Education Filed: 07/11/2024 09:29 Note Text: Post procedure written instructions were given to patient.[facility]10-21-20[facility] History of Present illness Narrative* [...] PATIENT PRESENTS WITH AN IMPLANTABLE OR ATTACHED ETL BI DEVELOPER: No RADIOLOGY DEPARTMENT: Mammography PERIPHERAL IV DATA: Not applicable SIGNED BY: Stewart Brewer July 04, 2024 12:32 PM documented in this encounterProtestant Deaconess Hospital10-21-2024 NoteHNO ID: [id number] Author: OMAR SOLIMAN Mammo Tech Service: ? Author Type: Campus Safety Officer Type: Progress Notes Filed: 07/04/2024 12:32 Note [...] PATIENT PRESENTS WITH AN IMPLANTABLE OR ATTACHED ETL BI DEVELOPER: No RADIOLOGY DEPARTMENT: Mammography PERIPHERAL IV DATA: Not applicable SIGNED BY: Omar Soliman Ceannateo [employer] July 04, 2024 12:32 [facility]10-21-2024 NoteHNO ID: [id number] Author: FATUMA TYLER APRN.INTERACTIVE MEDIA SPECIALIST Service: ? Author Type: Nurse Practitioner Type: Progress Notes Filed: 07/06/2024 08:25 Note Text: MEDICAL BREAST PATIENT NAME: Shazia Chou July 04, 2024 REFERRAL: She is self referred for an opinion regarding regarding LEFT breast painful lump and bloody nipple discharge HISTORY of PRESENT ILLNESS: Shazia Chou is a 33 year old premenopausal female who presents to the [facility] today for evaluation of left [...] Test performed by chemiluminescent immunoassay. Performed at [facility],[address] [place] [address] She takes a multivitamin daily. BMD: No PERSONAL BREAST HISTORY: Breast biopsy: No Breast cysts: No Breast surgery: No Breast cancer: No CANCER SURVEILLANCE: Mammograms: Date in [facility]: 12/09/23; results - Negative-Left breast only Breast MRI: Date in [facility]: 06/10/22; results - Negative Colonoscopy: No [...] discussed with the Patient or Patient's Authorized Pastoral Counselor. As applicable, any other physician, advance practice provider, medical student, or other health professional student that will be observing or involved in (more content not included)...[facility] History of Present illness Narrative* Fatuma Tyler APRN.IRENE - 07/04/2024 10:52 AM EDT MEDICAL BREAST PATIENT NAME: Shazia Chou July 04, 2024 REFERRAL: She is self referred for an opinion regarding regarding LEFT breast painful lump and bloody nipple discharge HISTORY of PRESENT ILLNESS: Shazia Chou is a 33 year old premenopausal female who presents to the [facility] today for evaluation of left [...] Test performed by chemiluminescent immunoassay. Performed at [facility] [place] [address] She takes a multivitamin daily. BMD: No PERSONAL BREAST HISTORY: Breast biopsy: No Breast cysts: No Breast surgery: No Breast cancer: No CANCER SURVEILLANCE: Mammograms: Date in [facility]: 12/09/23; results - Negative-Left breast only Breast MRI: Date in [facility]: 06/10/22; results - Negative Colonoscopy: No [...] discussed with the Patient or Patient's Authorized Pastoral Counselor. Asapplicable, any other physician, advance practice provider, medical student, or other health professional student that will be observing or involved in the sensitive examination for educational or training purposes was discussed with the Patient or Authorized Pastoral Counselor. The Patient or Authorized Pastoral Counselor has agreed to proceed with the sensitive [...] which included preparing to see the patient, ylji-gp-yvnv patient care, completing clinical documentation, obtaining and/or reviewing separately obtained history, performing a medically appropriate examination, counseling and educating the patient/family/caregiver, ordering medications, tests, or procedures, and communicating results to the patient/family/caregiver. Fatuma Tyler APRN.[facility] Medical Breast Specialist July 04, 2024 CC: Tevin Carson [id number] [place] [address] documented in this [facility]10-21-2024 Instructions* Patient Instructions* Naldo Borreog MA - 07/04/2024 10:52 AM EDT Thank you for trusting me with your breast care today. Please call or MyChart in 2-3 months with an update in your symptoms. With any changes in symptoms evaluated today such as worsening, pain, skin redness, warmth, drainage, palpable mass or other breast symptoms. Your Breast Care Team, Fatuma Tyler CNP, Medical Breast Specialist Sofia Shelton, MARCO [phone] ([place]) Naldo Borrego, Income Tax Expert [phone] ([place]) documented in this [facility]10-18-2024 Instructions* Patient Instructions* Tevin Carson DO - [...] me in 1 month documented in this [facility]10-18-2024 NoteHNO ID: [id number] Author: TEVIN CARSON DO Service: ? Author Type: Physician Type: Progress Notes Filed: 07/01/2024 12:18 Note Text: [facility] Visit Assessment and Plan 1. Chest pain, [...] rhythm with sinus arrhythmia at 73 BPM, MI interval 138 ms, normal QRS, poor quality [...] Cognition and Memory: Cognition normal. Comments: [facility] History of Present illness Narrative* Tevin Carson, - 07/01/2024 11:03 AM EDT [facility] Visit Assessment and Plan 1. [...] rhythm with sinus arrhythmia at 73 BPM, MI interval 138 ms, normal QRS, poor quality [...] normal. Comments: Slightly anxious documented in this encounterPro[facility]10-[facility]24 Telephone encounter Note * Telephone Encounter - Naldo Borrego MA - 07/01/2024 10:23 AM EDT Shazia returned my call from yesterday about her appointment on Thursday. Patient stated that she had a mammogram and US done at [facility] recently because she felt a lump [...] to one anotheror not. She plans to cook pickled meat disk with reports from [employer] before her appointment. I asked her to arrive 30 minutes early to appointment so that we can start uploading the disk and she can fillout paperwork. She was appreciative for the call and information. Naldo Borrego MA [facility]10-18-2024 Miscellaneous Notes* Telephone Encounter - Naldo Borrego MA - 07/01/2024 10:23 AM EDT Shazia returned my call from yesterday about her appointment on Thursday. Patient stated that she had a mammogram and US done at [facility] recently because she felt a lump in [...] to one anotheror not. She plans to cook pickled meat disk with reports from [employer] before her appointment. I asked her to [...] me. Naldo Borrego MA documented in this encounterProtestant [facility]10-17-2024 Telephone encounter Note * Telephone Encounter - Naldo Borrego MA - 06/30/2024 2:43 PM EDT I called and left a message for the patient regarding her [facility] I left my contact information for her to reach me. Naldo Borrego MA [facility]09-16-2024 NoteHNO ID: [id number] Author: ORLANDO MARTINEZ MA Service: ? Author Type: Income Tax Expert Type: Progress Notes Filed: 05/30/2024 13:52 Note Text: POPULATION HEALTH NAVIGATION OUTREACH Action/FYI Patient called back and I scheduled her for a ED follow up with INTERACTIVE MEDIA SPECIALIST in office. Also scheduled patient for est care appointment. Updated PCP field PER Navigation rules. ACM Reason for Outreach Community Monitoring/Network Navigator Pools AND Phone Line: ACM Patient Contacted: Spoke to patient/parent/or legal guardian Patient identified by name and : Yes Community Monitoring/Network Navigator Pools AND Phone Line actions taken: Patient scheduled: ER Follow-up Establish Care Appointment 05/31/2024 in [facility] with LISHA BIANCHI - ED follow up 07/01/2024 in [facility] with TEVIN CARSON - est care 08/05/2024 in [facility] with ROBERTO MCKEON - Fhx of pancreatic cancer, Phx of pancreatic mass Action taken: Marked in OnBase for Schedulers PCP field updated Navigation Signature: Orlando Martinez MA May 30, 2024 1:44 [facility]09-16-2024 History of Present illness Narrative* Orlando Martinez MA - 05/30/2024 1:37 PM EDT POPULATION HEALTH NAVIGATION OUTREACH Action/FYI Patient called back and I scheduled her for a ED follow up with INTERACTIVE MEDIA SPECIALIST in office. Also scheduled patient for est care appointment. Updated PCP field PER Navigation rules. ACM Reason for Outreach Community Monitoring/Network Navigator Pools & Phone Line: ACM Patient Contacted: Spoke to patient/parent/or legal guardian Patient identified by name and : Yes Community Monitoring/Network Navigator Pools & Phone Line actions taken: Patient scheduled: ER Follow-up Establish Care Appointment 05/31/2024 in [facility] with LISHA BIANCHI - ED follow up 07/01/2024 in [facility] with TEVIN CARSON - est care [...] patient to Network Navigation to schedule a [facility] ED 05/23/24 PCP follow-up appointment. Thank you 1st attempt- Called and left a voicemail for patient to call me back directly. IronPlanethart message sent Postponing for 2 days. ACM Reason for Outreach Community Monitoring/Network Navigator Pools & Phone Line: ACM Patient Contacted: Unable or unnecessary to reach patient: Left message Microtunehart message sent Navigation Signature: Orlando Martinez MA [...] patient to Network Navigation to schedule a [facility] ED 05/23/24 PCP follow-up appointment. Thank you Exclusion Criteria - Does not meet exclusion criteria ED DIAGNOSES/REASON(S) FOR ED USE: [facility] OTHER FINDINGS/SUMMARY: Unable to locate ED discharge summary in Care everywhere Patient Attributed To: KERMIT Payer: Mauricio HAMMOND Action Taken: Referrals/Routed: Population Health Navigation: Appointment. Router to COMMUNITY MONITORING PSS POOL [[phone]] Contact made with patient: No, Chart review only. Signature: Lenora KHALIL, RN, [facility] Primary Care [employer]itional [employer] Par[employer] [phone] documented in this encounterProtestant Deaconess Hospital09-16-2024 NoteHNO ID: [id number] Author: ORLANDO MARTINEZ MA Service: ? Author Type: Income Tax Expert Type: Progress Notes Filed: 05/30/2024 13:07 Note Text: POPULATION HEALTH NAVIGATION OUTREACH Action/FYI Reason for review or outreach: Chart Review Edyta Priority Emergency Department Utilization REQUESTED ACTION/FYI: Please see ED Utilization summary below: A follow-up appointment is not noted in patient's record. We are forwarding this patient to Network Navigation to schedule a [facility] ED 05/23/24 PCP follow-up appointment. Thank you 1st attempt- Called and left a voicemail for patient to call me back directly. IronPlanethart message sent Postponing for 2 days. AC Reason for Outreach Community Monitoring/Network Navigator Pools AND Phone Line: ACM Patient Contacted: Unable or unnecessary to reach patient: Left message Microtunehart message sent Navigation Signature: Orlando Martinez MA May 30, 2024 1:01 [facility]09-16-2024 NoteHNO ID: [id number] Author: LENORA YEE, RN Service: ? Author [...] patient to Network Navigation to schedule a [facility] ED 05/23/24 PCP follow-up appointment. Thank you Exclusion Criteria - Does not meet exclusion criteria ED DIAGNOSES/REASON(S) FOR ED USE: [facility] OTHER FINDINGS/SUMMARY: Unable to locate ED discharge summary in Care everywhere Patient Attributed To: EULALIOE Payer: Mauricio HAMMOND Action Taken: Referrals/Routed: Population Health Navigation: Appointment. Router to [facility] [[phone]] Contact made with patient: No, Chart review only. Signature: Lenora Yee MSN, RN, [facility] Primary Care [employer] Par[employer] [facility] [phone]09-16-2024 NotePatient Outreach (AMBCMG) SHAZIA CHOU ([id number]) 1990 F Date Time Provider Department 05/30/24 LENORA YEE During your visit today, we recorded the following information about you: Lenora Yee, RN 05/30/2024 12:45 PM Signed ACM EDYTA RN Patient identified by name and date of . Reason for review or outreach: Chart Review Edyta Priority Emergency Department Utilization REQUESTED ACTION/FYI: Please see ED Utilization summary below: A follow-up appointment is not noted in patient's record. We are forwarding this patient to Network Navigation to schedule a [facility] ED 05/23/24 PCP follow-up appointment. Thank you Exclusion Criteria - Does not meet exclusion criteria ED DIAGNOSES/REASON(S) FOR ED USE: [facility] OTHER FINDINGS/SUMMARY: Unable to locate ED discharge summary in Care everywhere Patient Attributed To: [facility] Payer: Mauricio STEPHANY Action Taken: Referrals/Routed: Population Health Navigation: Appointment. Router to COMMUNITY MONITORING PSS POOL [[id number]] Contact made with patient: No, Chart review only. Signature: Lenora Yee MSN, RN, [facility] Primary Care [employer] [facility] [phone] Orlando Martinez MA 05/30/2024 1:07 PM Addendum POPULATION HEALTH NAVIGATION OUTREACH Action/FYI Reason for review or outreach: Chart Review Edyta Priority Emergency Department Utilization REQUESTED ACTION/FYI: Please see ED Utilization summary below: A follow-up appointment is not noted in patient's record. We are forwarding this patient to Network Navigation to schedule a [facility] ED 05/23/24 PCP follow-up appointment. Thank you 1st attempt- Called and left a voicemail for patient to call me back directly. IronPlanethart message sent Postponing for [address] [facility] Reason for Outreach Community Monitoring/Network Navigator Pools AND Phone Line: [facility] Patient Contacted: Unable or unnecessary to reach patient: Left message Microtunehart message sent Navigation Signature: Orlando Martinez MA May 30, 2024 1:01 PM Orlando Martinez MA 05/30/2024 1:52 PM Addendum POPULATION HEALTH NAVIGATION OUTREACH Action/FYI Patient called back and I scheduled her for a ED follow up with INTERACTIVE MEDIA SPECIALIST in office. Also scheduled patient for est care appointment. Updated PCP field PER Navigation rules. ACM Reason for Outreach Community Monitoring/Network Navigator Pools AND Phone Line: ACM Patient Contacted: Spoke to patient/parent/or legal guardian Patient identified by name and : Yes Community Monitoring/Network Navigator Pools AND Phone Line actions taken: Patient scheduled: ER Follow-up Establish Care Appointment 05/31/2024 in [facility] with LISHA BIANCHI - ED follow up 07/01/2024 in [facility] with TEVIN CARSON - est care [...] Assessed Reason for Visit: ACM EDYTA RN [[id number]] Cmt: ED Utilization review per request of [...] mg by mouth daily at bedtime. - ybkiurdpqkxv-kkg-nigu-FA-vit K (BARIATRIC MULTIVITAMINS) 45 mg iron- 800 mcg-120 mcg cap Take by mouth. Problem List As Of Date 05/30/2024 Noted Resolved Poor growth, affecting management of moth*07/03/2008 03/08/2024 Idiopathic intracranial hypertension [G93.2] 11/20/2022 Primary hypertension [I10] 11/20/2022 03/08/2024 Depression [F32.A] 11/20/2022 Hx of gastric bypass [Z98.84] 11/20/2022 H/O foot surgery [Z98.890] 11/20/2022 Bipolar affective d (more content not included)...[facility] 05-12-2024 NoteHNO ID: [id number] Author: ?, ?, ? Service: ? Author Type: ? Type: Progress Notes Filed: 05/12/2024 17:42 Note Text: MCM sent to pt advising her that her Breast MRI has still not been scheduled. Pancreas was completed. Kimberli Malave PSSUc Medical Center08-13-2024 History of Present illness Narrative* Jeff Capellan LPN - 04/26/2024 3:43 PM EDT Outreach message sent documented in this encounterProtestant Deaconess [facility]08-13-2024 NoteHNO ID: [id number] Author: JEFF CAPELLAN LPN Service: ? Author Type: LICENSED NURSE Type: Progress Notes Filed: 04/26/2024 15:43 Note Text: Outreach message sentUc Medical Center08-13-2024 NotePatient Outreach (FPNRMOC) SHAZIA CHOU ([id number]) 1990 F Date Time Provider Department 04/26/24 ELIA BAIRES [facility] During your visit today, we recorded the following information about you: Jeff Capellan LPN 04/26/2024 3:43 PM Signed Outreach [...] mg by mouth daily at bedtime. - nohpguoioigl-wdb-tpvi-FA-vit K (BARIATRIC MULTIVITAMINS) 45 mg iron- 800 [...] Panic disorder [F41.0] 03/08/2024 Encounter Status:Closed by JEFF CAPELLAN on 04/26/24[facility] 03-08-[facility] Hospital Discharge instructions Patient [...] Follow these instructions at home: Medicines Take kimv-sfy-ywmbfnx and prescription medicines only as told by your health care provider. Ask your health care provider if the medicine prescribed to you: ?Requires you to avoid driving or using heavy machinery. ?Can cause constipation. You may need to take these actions to prevent or treat constipation: ?Drink enough fluid to keep your urine pale yellow. ?Take hrmo-khp-lwksrhq or prescription medicines. ?Eat foods that are [...] provider. Document Revised: 12/08/2022 Document Reviewed: 01/24/2020 [employer] Patient Education 2022 [employer]. 03/08/2024 15:36:59 Head Injury, Adult Head Injury, [...] Ask your health care provider for a aann-aa-lnjv plan for gradually returning to activities. Ask [...] your friends, family, a trusted colleague, and social service worker about your injury, symptoms, and restrictions. Have them watch for any new or worsening problems. General instructions Take ffmx-ymm-irazlnt and prescription medicines only as told by [...] provider. Document Revised: 07/13/2020 Document Reviewed: 07/13/2020 [employer] Patient Education 2022 [employer]. 03/08/2024 15:36:59 Muscle Strain Muscle Strain A [...] is not too tight. General instructions Take vzms-ace-bgfgems and prescription medicines only as told by [...] provider. Document Revised: 11/18/2021 Document Reviewed: 11/18/2021 [employer] Patient Education 2022 Cital[employer]. Follow Up Care 03/08/2024 13:07:25 With:David Zazueta Address: [address], [address] [place] [address]- [phone] Business (1) When:03/11/2024 15:24:14 With:Jennie Durand Address: [address] [place] [address] Business (1) When:Within 3 Day(s) [facility]06-25-2024 History of Present illness Narrative* Sofia Benavidez RN - 03/08/2024 10:00 AM EDT Radiology [...] PATIENT PRESENTS WITH AN IMPLANTABLE OR ATTACHED ETL BI DEVELOPER: No RADIOLOGY DEPARTMENT: MR; Exam(s) Completed: Body: Pancreas/Biliary PERIPHERAL IV DATA: Site assessment: Clean,Dry and Intact, Site disposition Discontinued SIGNED BY: MARIXA Tovar March 08, 2024 10:35 AM documented in this encounterProtestant Deaconess Hospital06-25-2024 NoteHNO ID: [id number] Author: MIRLANDE DIAZ MRI Tech Service: Radiology Author Type: Campus Safety Officer Type: Progress Notes Filed: 03/08/2024 10:36 Note [...] PATIENT PRESENTS WITH AN IMPLANTABLE OR ATTACHED ETL BI DEVELOPER: No RADIOLOGY DEPARTMENT: MR; Exam(s) Completed: Body: Pancreas/Biliary PERIPHERAL IV DATA: Site assessment: Clean,Dry and Intact, Site disposition Discontinued SIGNED BY: MARIXA Tovar March 08, 2024 10:[address] [facility]06-25-2024 NoteHNO ID: [id number] Author: SOFIA BENAVIDEZ RN Service: Nursing Author [...] Chou DATE: March 08, 2024 TIME: 10:[address] [facility]06-25-2024 Instructions* Patient Instructions* Elia Baires DO - 03/08/2024 8:47 AM EDT 1) Schedule appointment with Austin Mata to discuss Adipex. 2) Schedule MRI of breast 3) I can refill the klonopin as needed. 4) Try steroid as needed twice daily 5) Follow-up in [address] Carson to establish care documented in this encounterProtestant Deaconess Hospital06-25-2024 NoteHNO ID: [id number] Author: ELIA BAIRES DO Service: ? Author [...] [facility] Says they stopped her Rexulti and switch to Lamictal 75 mg daily. Says this has dramatically improved her symptoms. Currently taking duloxetine 60 mg twice daily and trazodone 50 mg at bedtime. She says that she has only needed to use her clonazepam a few times a week. H (more content not included)...[facility] History of Present illness Narrative* [...] [facility]. Says they stopped her Rexulti and switch [...] updated today in the History tab of [employer]. REVIEW OF SYSTEMS: All other reviewed and [...] Dr. Elia Baires DO documented in this encounterProtestant Deaconess Hospital04-22-2024 Instructions* Patient Instructions* Elia Baires DO - 01/04/2024 10:16 AM EDT 1) Give urine sample today. 2) Placed lab orders. Fast for 12 hours then get labs. 3) I would follow-up with your psychiatrist in January 4) Physical in 1-2 months. documented in this encounterProtestant Deaconess Hospital04-22-2024 NoteHNO ID: [id number] Author: ELIA BAIRES DO Service: ? Author [...] She says that she is originally from [facility] however came up to here today [...] to establish with a new psychiatrist at [facility] in [place]. She also sees a counselor weekly. Current [...] No psychosis or maryam. Dr. Elia Baires, [facility]04-22-2024 History of Present illness Narrative* Elia Baires, [...] She says that she is originally from [facility] however came up to here today [...] to establish with a new psychiatrist at [facility] in [place]. She also sees a counselor weekly. Current medication regimen is duloxetine 60 mg twice daily, Rexulti 4 mg daily, trazodone 50 mg nightly. She denies use of illegal drugs. Says that she was prescribed lorazepam at her recent ED visit. Ceasaro endorses use of cannabis. Hx of intracranial [...] Dr. Elia Baires DO documented in this encounterProtestant Deaconess Hospital01-05-2024 Hospital Discharge instructions* Discharge Instructions* Gamaliel Vickers [...] questions, PLEASE call your doctor or the [facility] center at documented in this encounterSENT[facility] History of Present illness Narrative* Ce Bustamante RN - 09/16/2023 1:25 PM EST PAT phone call for /EGD completed with pt. Date/time/location (entrance C) of surgery/procedure verified with pt. NPO after MN status verified with pt. Need for chair car driver ( ) verified with pt. Instructed pt to take a shower the AM of surgery/procedure and to avoid lotions, creams, jewelry. Encouraged pt to avoid artificial nails and/or nailpolish. Instructed pt to take BP meds with a small sip of water prior to procedure/surgery. documented [facility]* Encounter Date Diagnosis Assessment Notes Treatment Notes Treatment Clinical Notes Jul, Pancreatic cyst (ICD-10 - K86.2) [facility] Other 10-25-2023 Evaluation note* Encounter Date Diagnosis [...] stop smoking. Jun, Smoker (ICD-10 - F17.200) [facility] Other 09-27-2023 NoteHNO ID: [id number] Author: Eileen Alvarez MD Service: ? Author Type: Physician Type: Progress Notes Filed: 06/10/2023 3:39 PM Note Text: [facility] General Neurology Follow Up / Established Virtual Visit I have communicated my name and active licensure. The patient's identity and physical location were verified at the time of this visit. Either the patient or their legal customer development representative has been informed of the risks [...] due to congenital deformity, seen in the [facility] for: Idiopathic intracranial [...] due to congenital deformity, seen in the [facility] for: 1. Idiopathic [...] she agreed. She needs to follow with emr trainer every 6 months. In some patients with [...] her eyes. She has never seen an emr trainer. CSF protein 24, Glu 55, Pro 28, [...] cognition, memory, speech. Cr (more content not included)...[facility] [id number] Miscellaneous Notes * Telephone Encounter - Clara [...] A DAY IN A WEEK Pharmacy Name: [facility] Pharmacy Phone #: [phone] Fabby Cassidy documented in this encounterProtestant Deaconess Hospital07-06-2023 Evaluation + Plan note Diagnostic Tests Pending * Zinc Level 03/19/23 * PTH Intact 03/19/23 * Vitamin A Level 03/19/23 * Vitamin B1 03/19/23 Future Scheduled Tests Laboratory* CBC w/ Auto Diff 07/21/22 Radiology* MA Mamm Screen w/CAD if perf and 3D Tanmay 04/21/22 [facility]05-04-2023 Hospital Discharge instructions Patient Education [...] Follow these instructions at home: Medicines Take soxw-ryf-ptmastj and prescription medicines only as told by [...] provider. Document Revised: 11/14/2021 Document Reviewed: 11/14/2021 [employer] Patient Education 2022 CitalDoc. Follow Up Care 01/15/2023 10:48:45 With:Jennie Durand Address: [address] [place] [address]- Business (1) When:01/18/2023 13:32:37 [facility]05-04-2023 Evaluation + Plan noteExtracted from: [...] w/CAD if perf and 3D Tanmay 04/21/22 [facility]03-31-2023 Miscellaneous Notes* Telephone Encounter - Clara Durbin RN - 12/12/2022 3:03 PM EDT Spoke with patient and informed that per [facility] pharmacy, there are remaining refills on [...] A DAY IN A WEEK Pharmacy Name: [facility] Pharmacy Phone #: [phone] Fabby Cassidy documented in this encounterProtestant Deaconess Hospital03-24-2023 Hospital Discharge instructions Patient Education 12/05/2022 12:15:12 Post Op Patient Instructions - ALANNA (CUSTOM) 12/05/2022 12:15:12 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 [facility]03-24-2023 Evaluation + Plan noteExtracted from: Title:ANES Post-operative Note - General Author: Vu Maria Jr., DO Date:12/05/22 Plan Transfer/Discharge: Transfer/Discharge Discharge when meets criteria ( From PACU to Ambulatory Surgery Unit, and To home ). Extracted from: Title:ANES Pre-operative Note - Adult Author:Vu Chowdhury Jr., DO Date:12/05/22 Plan [place] [employer] Anesthesiologists (ASA) physical status classification: Class II. Anesthetic Preoperative Plan: Anesthesia General. Future Appointments Appointment Date:01/02/2023 10:00:00 AM Scheduled Provider:Nakia Shah Location:[facility] Appointment Type: Open Future Scheduled Tests Laboratory* CBC w/ Auto Diff 07/21/22 Radiology* MA Mamm Screen w/CAD if perf and 3D Tanmay 04/21/22 [facility]03-09-2023 NoteHNO ID: [id number] Author: Eileen Alvarez MD Service: ? Author Type: Physician Type: Progress Notes Filed: 11/20/2022 10:33 AM Note Text: [facility] New Patient Evaluation [...] due to congenital deformity, seen in the [facility] for: Idiopathic intracranial [...] her eyes. She has never seen an emr trainer. CSF protein 24, Glu 55, Pro 28, [...] due to congenital deformity, seen in the [facility] for: 1. Idiopathic [...] she agreed. She needs to follow with emr trainer every 6 months. In some patients with [...] --start acetazolamide (diamox 500m (more content not included)...[facility] [id number] Instructions* Patient Instructions* Eileen Alvarez MD - [...] up in 2-4 months documented in this encounterProtestant Deaconess Hospital03-09-2023 History of Present illness Narrative* Eileen Alvarez MD - 11/20/2022 7:57 AM EST Images from the original note were not included. 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 She has never seen an emr trainer. CSF protein 24, Glu 55, Pro 28, [...] due to congenital deformity, seen in the [facility] for: 1. Idiopathic [...] she agreed. She needs to follow with emr trainer every 6 months. In some patients with [...] Take 40 mg by mouth once daily. mcgmnzbtndfu-kyj-apno-FA-vit K (BARIATRIC MULTIVITAMINS) 45 mg iron- 800 [...] % Lymph% 20 15.9 - 47.3 % Benzie% 6 0.0 - 12.0 % Eosin% 3 0.0 - 6.6 % Baso% 1 0.0 - 1.2 % Abs Neut (ANC) 7.64 (H) 1.45 - 7.50 k/uL Abs Lymph 2.18 1.00 - 4.00 K/uL Abs Benzie 0.65 0.00 - 0.86 k/uL Abs Eosin [...] which included preparing to see the patient, zkqc-ut-spis patient care, completing clinical documentation, obtaining and/or reviewing separately obtained history, performing a medically appropriate examination, counseling and educating the pat ient/family/caregiver, ordering medications, tests, or procedures, independently interpreting results (not separately reported), communicating results to the patient/family/caregiver, and care coordination (not separately reported). Eileen Alvarez MD documented in this encounterPro[facility]23 Hospital Discharge instructions Patient Education 11/03/2022 [...] height. This can be done either in Cymro ([place] or metric measurements. Note that charts are available to help you find your BMI quickly and easily without having to do these calculations yourself. To calculate your BMI in Cymro ([place] measurements, your health care provider will: [...] medical problems. BMI can be measured using Cymro measurements or metric measurements. To interpret your [...] 05/12/2005 Document Revised: 08/13/2018 Document Reviewed: 07/14/2018 [employer] Patient Education 2020 [employer]. 11/03/2022 13:28:26 Tobacco Use Disorder Tobacco Use [...] reduces withdrawal symptoms. NRT is available as: ?Citz-ehm-wiawipg gums, lozenges, and skin patches. ?Prescription mouth [...] recovery for many people. General instructions Take uomw-bur-wqzfkbb and prescription medicines only as told by your health care provider. Check with your health care provider before taking any new prescription or rdzr-lnb-gkdvldi medicines. Decide on a friend, family member, or smoking quit-line (such as 9-726-VIBR-NOW in the [place] that you can call [...] 05/06/2005 Document Revised: 08/18/2018 Document Reviewed: 08/18/2018 [employer] Patient Education 2020 C[employer]. 11/03/2022 13:28:23 Alcohol Abuse and Dependence Information, [...] find support Your health care provider. SMART Varaa.com: www.smartrecovery.org Therapy and support groups Local treatment centers or chemical dependency counselors. Local AA groups in your community: www.aa.org Where to find more information Centers for Disease Control and Prevention: www.cdc.gov National [place] on Alcohol Abuse and Alcoholism: www.niaaa.nih.gov Alcoholics [...] 08/25/2017 Document Revised: 12/20/2019 Document Reviewed: 11/08/2019 [employer] Patient Education 2020 C[employer]. 11/03/2022 13:28:19 BMI for Adults BMI for [...] height. This can be done either in Cymro ([place] or metric measurements. Note that charts are available to help you find your BMI quickly and easily without having to do these calculations yourself. To calculate your BMI in Cymro ([place] measurements, your health care provider will: [...] medical problems. BMI can be measured using Cymro measurements or metric measurements. To interpret your [...] 05/12/2005 Document Revised: 08/13/2018 Document Reviewed: 07/14/2018 [employer] Patient Education 2020 [employer] Info Inc. 10/27/2022 11:56:27 Alcohol Abuse and Dependence [...] for Disease Control and Prevention: www.cdc.gov National [place] on Alcohol Abuse and Alcoholism: www.niaaa.nih.gov Alcoholics [...] 08/25/2017 Document Revised: 12/20/2019 Document Reviewed: 11/08/2019 [employer] Patient Education 2020 CitalDoc. Follow Up Care 10/15/2022 11:28:56 With:Nakia Shah Address: [address], [place] [address]- When:Within 2 Month(s) Comments:f/u smoking cessation and BP [facility] 01-11-2023 Hospital Discharge instructions Patient [...] reduces withdrawal symptoms. NRT is available as: ?Evvb-etp-fxfjqpq gums, lozenges, and skin patches. ?Prescription mouth [...] recovery for many people. General instructions Take qfnt-phr-cbewyfj and prescription medicines only as told by your health care provider. Check with your health care provider before taking any new prescription or uadt-ihc-aeedcjp medicines. Decide on a friend, family member, or smoking quit-line (such as 0-356-ZXWR-NOW in the [place] that you can call [...] 05/06/2005 Document Revised: 08/18/2018 Document Reviewed: 08/18/2018 [employer] Patient Education 2020 C[employer]. 09/24/2022 07:23:47 BMI for Adults BMI for [...] height. This can be done either in Cymro ([place] or metric measurements. Note that charts are available to help you find your BMI quickly and easily without having to do these calculations yourself. To calculate your BMI in Cymro ([place] measurements, your health care provider will: [...] medical problems. BMI can be measured using Cymro measurements or metric measurements. To interpret your [...] 05/12/2005 Document Revised: 08/13/2018 Document Reviewed: 07/14/2018 [employer] Patient Education 2020 [employer] Info Inc. 09/24/2022 07:23:45 Alcohol Use Disorder Alcohol [...] centers. Follow these instructions at home: Take mgjy-uxe-yxlvwen and prescription medicines only as told by [...] 10/08/2005 Document Revised: 08/13/2018 Document Reviewed: 05/28/2017 [employer] Patient Education 2020 [employer] Info Inc. 09/24/2022 07:23:42 Borderline Personality Disorder, Adult Borderline [...] with BPD should do these things: Take beec-obd-lxwxxvz and prescription medicines only as told by [...] important. Where to find more information National [place] on Mental Illness: www.marivel.org [place]. National [place] of Mental Health: www.nimh.nih.gov Contact a health [...] 12/16/2011 Document Revised: 08/13/2018 Document Reviewed: 11/05/2017 [employer] Patient Education 2020 C[employer]Doc. 09/24/2022 07:23:39 Managing Bipolar Disorder Managing Bipolar [...] Follow these instructions at home: Medicines Take czgf-twt-bmcdvvk and prescription medicines only as told by your health care provider or pharmacist. Ask your pharmacist what ymve-cbf-xaukwtn cold medicines you should avoid. Some medicines [...] a problem, search for a local or [facility]. Public mental health [...] 12/31/2017 Document Revised: 12/23/2019 Document Reviewed: 12/31/2017 [employer] Patient Education 2019 CitalDoc. Follow Up Care 09/16/2022 13:23:11 With:Aimee Walker CNP Address: [address] [place] [phone] When:3 months [facility] 12-09-2022 Hospital Discharge instructions Patient Education 08/22/2022 11:12:56 Tension Headache, Adult, Ygeq-op-Rfva Tension Headache, Adult A tension headache is pain, pressure, or aching in your head. Tension headaches can last from 30 minutes to several days. Follow these instructions at home: Managing pain Take peld-umj-awewgru and prescription medicines only as told by [...] 11/25/2010 Document Revised: 08/13/2018 Document Reviewed: 12/11/2017 [employer] Patient Education 2020 CitalDoc. Follow Up Care 08/14/2022 12:38:29 With:Rita SNOWDEN, IGGY Robreson, PED Address: [address], [place] [address] When:1 month only if needed Comments:40 mins [facility] 12-05-2022 Hospital Discharge instructions Patient [...] feet clean and dry. General instructions Take kjxu-sjk-msaggpi and prescription medicines only as told by [...] 09/26/2016 Document Revised: 06/16/2019 Document Reviewed: 06/16/2019 [employer] Patient Education 2020 CitalDoc. 08/18/2022 19:56:48 Foot Sprain Foot Sprain A [...] fully hardened. This may takeseveral hours. Take qpju-wpo-bxpiyos and prescription medicines only as told by [...] 02/20/2003 Document Revised: 09/04/2018 Document Reviewed: 09/04/2018 [employer] Patient Education 2020 C[employer]Doc. 08/18/2022 19:56:48 Elastic Bandage and RICE Therapy [...] limityour activities and whether you should start cbntg-bf-efxlza exercises for your injury. Ice Ice your [...] 02/20/2003 Document Revised: 05/21/2018 Document Reviewed: 05/21/2018 [employer] Patient Education 2020 CitalDoc. Follow Up Care 08/18/2022 17:21:15 With:Hilton Gillis Address: [address] [place], [place] [id number]- Business (1) When:08/21/2022 19:10:21 With:Aimee Walker Address:Unknown When:Within 3 Day(s) [facility] Progress note Author Lizzeth Malave [facility] August 12, 2022 10:46am Note Date/Time August 12, 2022 10:45am [facility] [address] [place] [id number] Hospitalist Progress Note Signed Patient: Shazia Chou MR#: [id number] : 1990 Acct:[id number] Age/Sex: 31 / F Adm Date: 2 Loc: 4N Room: 6X4736-0 Type: ADM INOo Attending Dr: Lizzeth Malave MD Copies to: ~ Date of Service: 08/12/2022 Subjective Subjective Narrative: Shazia Chou is a 31yo F. She was transferred here last night from [facility] with worsening headache and blurry vision [...] Flu Vac Quad (36month+)Pf 0.5 Ml Syringe 0670-1147 IM 08/13/22 09:01 .ONCE ONE Omeprazole 20 [...] <Electronically signed by Lizzeth Malave MD> 08/12/22 8253 [facility] Work Phone: 1(362) 226-305111-29-2022 Consult note Author Kenrick Lee [facility] August 12, 2022 4:21pm Note Date/Time August 12, 2022 8:13am [facility] [address] [place] [address] Neurology Consult Note Signed Patient: Shazia Chou MR#: [id number] : 1990 Acct:[id number] Age/Sex: 31 / F Adm Date: 2 Loc: Room: [address] [place] [address] Type: ADM INOo Attending Dr: Lizzeth Malave MD Copies to: DO Jennie Wise ANP-C Ruta Semaskiene, MD~ HPI Consult Date: 08/12/22 Dental Prosthetist: ASTON Bro with Dr Lee Reason for consult: Headache, blurred vision Consult Narrative HPI: Patient is a 31-year-old female with medical history of bipolar, personality disorder, depression, and tobacco use in addition to 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 She has been seen in neurological consultation with request of the hospital service for headache and blurred vision. Patient initially presented to [facility] and was [facility]. She was seen in the [facility] on 08/08/2022 with similar symptoms and [...] when she called EMS. At [facility] she had a CT scan of [...] extremity from prior surgery CEREBELLAR EXAM: * Icsbsb-mo-sfxa and alternating movements are intact and normal in bilateral upper extremities * Gico-ka-xdhi and alternating movements are intact and normal [...] on these results. Evaluation at [facility]: * CT scan head is nonacute. [...] once daily). Okay for discharge now from [facility]. Documented By: EDINSON Dias [id number] Signed By: <Electronically signed by EDINSON Niño> 08/12/22 0958 <Electronically signed by Kenrick Lee DO> 08/12/22 1621 [facility] Work Phone: 1(660) 468-750811-28-2022 History and physical note Author Sangeetha Peña [facility] August 11, 2022 9:43pm Note Date/Time August 11, 2022 9:08pm [facility] [address] [place] [address] Hospitalist H&P Signed Patient: Shazia Chou MR#: [id number] : 1990 Acct:[id number] Age/Sex: 31 / F Adm Date: 2 Loc: Room: [address] [place] [address] Type: ADM IN Attending Dr: Erin Barahona MD Copies to: MD Erin Mcwilliams MD~ HPI DATE OF EXAMINATION: 08/11/22 CHIEF COMPLAINT: Headache with blurry vision HISTORY OF PRESENT ILLNESS: Patient is a pleasant 31-year-old female with history of borderline personality disorder, bipolar disorder and depression. She was accepted by daytime hospitalist when contacted by [facility] physician due to concern for headache [...] pain or dysuria. She was seenin the [facility] on 08/08 with similar symptoms. She [...] vision: Plan Patient has been transferred from [facility] when she presented with complaint of headache and blurry vision. During my evaluation her blood pressure is in 115 systolic and complaining of headache with blurry vision. Denies diplopia with no pain in extraocular movement. There is concern for possible idiopathic intracranial hypertension and patient has been transferred to [facility] for further management and neurology evaluation. [...] By: <Electronically signed by Sangeetha Peña MD> 08/11/221 [facility] Work Phone: 1(709) 569-123111-25-2022 Evaluation + Plan noteExtracted from: Title:ED Note [...] eGFR Influenza A&B Ag Rapid COVID Antigen (MC) UA With Cult Reflex Future Scheduled Tests Laboratory* CBC w/ Auto Diff 07/21/22 Radiology* MA Mamm Screen w/CAD if perf and 3D Tanmay 04/21/22 [facility]11-25-2022 Hospital Discharge instructions Patient Education [...] health care provider to lose weight. Take qoel-qjg-fhlbyuc and prescription medicines only as told by [...] 11/09/2002 Document Revised: 08/13/2018 Document Reviewed: 07/22/2017 [employer] Info Patient Education [employer] Follow Up Care 08/08/2022 09:04:11 With:Kenrick Lee Address: [address] [place] [address] Business (1) When:08/11/2022 11:38:22 Comments:Follow-up with Dr. [...] you develop any new or worsening symptoms. [facility]11-07-2022 Evaluation + Plan note Future Scheduled Tests Laboratory* CBC w/ Auto Diff 07/21/22 Radiology* MA Mamm Screen w/CAD if perf and 3D Tanmay 04/21/22 [facility] 11-07-2022 Evaluation + Plan note Future Scheduled Tests Laboratory* CBC w/ Auto Diff 07/21/22 [facility]11-07-2022 Hospital Discharge instructions Patient Education [...] Follow these instructions at home: Medicines Take osxf-zzg-jxkznyo and prescription medicines only as told by your health care provider or pharmacist. Ask your pharmacist what znvy-gqf-fikaiyr cold medicines you should avoid. Some medicines [...] a problem, search for a local or [facility]. Public mental health [...] 12/31/2017 Document Revised: 12/23/2019 Document Reviewed: 12/31/2017 [employer] Patient Education 2020 Sun[employer] Info Inc. 07/21/2022 11:21:57 Tobacco Use Disorder Tobacco [...] reduces withdrawal symptoms. NRT is available as: ?Lyvz-jft-hlodjej gums, lozenges, and skin patches. ?Prescription mouth [...] recovery for many people. General instructions Take unwm-tjk-lzcgnyj and prescription medicines only as told by your health care provider. Check with your health care provider before taking any new prescription or lvac-ljq-rrpfxwp medicines. Decide on a friend, family member, or smoking quit-line (such as 8-560-FCMN-NOW in the [place] that you can call [...] 05/06/2005 Document Revised: 08/18/2018 Document Reviewed: 08/18/2018 [employer] Patient Education 2020 C[employer]Doc. 07/21/2022 11:21:55 BMI for Adults BMI for [...] height. This can be done either in Cymro ([place] or metric measurements. Note that charts are available to help you find your BMI quickly and easily without having to do these calculations yourself. To calculate your BMI in Cymro ([place] measurements, your health care provider will: [...] medical problems. BMI can be measured using Cymro measurements or metric measurements. To interpret your [...] 05/12/2005 Document Revised: 08/13/2018 Document Reviewed: 07/14/2018 [employer] Patient Education 2020 [employer] Inc. 07/21/2022 11:21:53 Leukocytosis Leukocytosis Leukocytosis means [...] Follow these instructions at home: Medicines Take czrz-hcg-kvmkctd and prescription medicines only as told by [...] 08/19/2012 Document Revised: 05/26/2019 Document Reviewed: 05/26/2019 [employer] Patient Education 2019 CitalDoc. Follow Up Care 07/18/2022 10:46:12 With:Aimee Walker CNP Address: When: only if needed [facility] 11-04-2022 Miscellaneous Notes* Telephone Encounter - Cat Rojo LPN - 07/18/2022 11:04 AM EDT Call placed to patient, no answer. Left message for patient to proceed with nicotine testing prior to scheduling. Please transfer to plastic surgery nurse if patient returns call with questions. documented in this encounterPro[facility]08-30-2022 Evaluation + Plan note Future Scheduled Tests Radiology* MRI Breast w/o and w/ Contrast, Left 05/13/22 * MA Mamm Screen w/CAD if perf and 3D Tanmay 04/21/22 [facility] [place] [id number] Hospital Discharge instructions Patient Education 05/13/2022 10:45:43 [...] food choices, such as grocery stores and [employer] markets. What are the signs or symptoms? [...] and how much exercise you get. Take mlhq-oax-hhomrmw and prescription medicines only as told by [...] 10/08/2005 Document Revised: 05/05/2019 Document Reviewed: 05/05/2019 [employer] Patient Education 2020 CitalDoc. [facility] [place] 08-08-2022 Evaluation + Plan note Future Scheduled Tests Radiology* MA Mamm Screen w/CAD if perf and 3D Tanmay 04/21/22 [facility]08-08-2022 Hospital Discharge instructions Patient Education [...] height. This can be done either in Cymro ([place].S[place] or metric measurements. Note that charts are available to help you find your BMI quickly and easily without having to do these calculations yourself. To calculate your BMI in Cymro ([place] measurements, your health care provider will: [...] medical problems. BMI can be measured using Cymro measurements or metric measurements. To interpret your [...] 05/12/2005 Document Revised: 08/13/2018 Document Reviewed: 07/14/2018 [employer] Patient Education 2020 CitalDoc. 04/21/2022 10:14:51 Lymphadenopathy Lymphadenopathy Lymphadenopathy means that [...] at home: Get plenty of rest. Take tdsb-cxm-hldaphx and prescription medicines only as told by your health care provider. Your health care provider may recommend mhtk-oha-dcygrqs medicines for pain. If directed, apply heat [...] 06/09/2009 Document Revised: 08/13/2018 Document Reviewed: 07/16/2018 [employer] Patient Education 2020 CitalDoc. 04/21/2022 10:14:49 Tobacco Use Disorder Tobacco Use [...] reduces withdrawal symptoms. NRT is available as: ?Cwwp-epd-zzijlag gums, lozenges, and skin patches. ?Prescription mouth [...] recovery for many people. General instructions Take jdgr-xhr-pvudadj and prescription medicines only as told by your health care provider. Check with your health care provider before taking any new prescription or inlv-bts-kwodbap medicines. Decide on a friend, family member, or smoking quit-line (such as 0-270-LMPP-NOW in the [place] that you can call [...] 05/06/2005 Document Revised: 08/18/2018 Document Reviewed: 08/18/2018 [employer] Patient Education 2020 CitalDoc. Follow Up Care 04/17/2022 09:51:05 With:Aimee Walker CNP Address: When: only if needed [facility] 08-07-2022 Hospital Discharge instructions Patient [...] at home: Get plenty of rest. Take wqmt-csb-wscpxbg and prescription medicines only as told by your health care provider. Your health care provider may recommend dznt-hbz-zvvzmrd medicines for pain. If directed, apply heat [...] 06/09/2009 Document Revised: 08/13/2018 Document Reviewed: 07/16/2018 [employer] Patient Education 2020 CitalDoc. Follow Up Care 04/20/2022 14:55:22 With:Aimee Walker Address: [address] [place] [address] [address], [place] [address] [phone] Business (1) When:04/23/2022 16:08:48 Comments:Follow-up with your primary care provider in 3 to 5 days. If symptoms worsen, do not improve, or new symptoms arise please report back to emergency department for further evaluation. [facility]08-07-2022 Evaluation + Plan noteExtracted from: Title:ED Note Author:Dony Alegre PA-C te:04/20/22 Axillary lymphadenopathy (R5 9.0: Localized enlarged lymph nodes) Orders: naproxen, 500 mg = 1 tab(s), Oral, BID, PRN for pain, # 20 tab(s), Refills(s) 0, Pharmacy: [facility]/pharmacy #[id number], 170, cm, 04/20/22 15:01:00 EDT, Height/Length Dosing, 81.5, kg, 04/20/22 15:01:00 EDT, Weight Dosing Automated Diff Basic Metabolic Panel CBC w/ Auto Diff eGFR XR Chest 2 Views Future Appointments Appointment Date:04/21/2022 09:40:00 AM Scheduled Provider:Aimee Walker CNP Location:[facility] Appointment Type: Open [facility]07-21-2022 Hospital Discharge instructions Patient Education [...] 03/15/2012 Document Revised: 08/24/2019 Document Reviewed: 08/24/2019 [employer] Patient Education 2020 CitalDoc. Follow Up Care 04/03/2022 16:59:04 With:Aaron BONILLAAimee Address: [phone] When:04/06/2022 [facility]06-17-2022 Miscellaneous Notes* Telephone Encounter - Lina Chavez RN - 02/28/2022 3:[address] Mckee, patient must be 4 weeks nicotine free prior to scheduling and collection of cosmetic payment. documented in this encounterProtest[facility]06-01-2022 History of Present illness Narrative* Amee Gonzalez PA-C - 02/12/2022 10:38 AM EDT Images from the original note were not included. Otolaryngology Consultation/Evaluation Note Head and Neck [place] ASSESSMENT: Burning tongue (primary encounter diagnosis) Irritation [...] Take 40 mg by mouth once daily. suspujpxrrjd-lvj-ftlz-FA-vit K (BARIATRIC MULTIVITAMINS) 45 mg iron- 800 [...] Level: 3 - Low documented in this encounterProtestant [facility]05-26-2022 Hospital Discharge instructions Patient Education 02/06/2022 [...] reduces withdrawal symptoms. NRT is available as: ?Suyn-myu-avghlgq gums, lozenges, and skin patches. ?Prescription mouth [...] recovery for many people. General instructions Take vkra-zai-dksqjlz and prescription medicines only as told by your health care provider. Check with your health care provider before taking any new prescription or xhxb-rlq-jajefev medicines. Decide on a friend, family member, or smoking quit-line (such as 9-342-EIZE-NOW in the [place] that you can call [...] 05/06/2005 Document Revised: 08/18/2018 Document Reviewed: 08/18/2018 [employer] Patient Education 2020 CitalDoc. 02/06/2022 09:33:46 BMI for Adults BMI for [...] height. This can be done either in Cymro ([place] or metric measurements. Note that charts are available to help you find your BMI quickly and easily without having to do these calculations yourself. To calculate your BMI in Cymro ([place] measurements, your health care provider will: [...] medical problems. BMI can be measured using Cymro measurements or metric measurements. To interpret your [...] 05/12/2005 Document Revised: 08/13/2018 Document Reviewed: 07/14/2018 [employer] Patient Education 2020 [employer] Follow Up Care 02/05/2022 13:43:34 With:Aimee Walker CNP Address: When: only if needed [facility] 05-18-2022 Hospital Discharge instructions Patient [...] height. This can be done either in Cymro ([place] or metric measurements. Note that charts are available to help you find your BMI quickly and easily without having to do these calculations yourself. To calculate your BMI in Cymro ([place] measurements, your health care provider will: [...] medical problems. BMI can be measured using Cymro measurements or metric measurements. To interpret your [...] 05/12/2005 Document Revised: 08/13/2018 Document Reviewed: 07/14/2018 [employer] Patient Education 2020 CitalDoc. 01/29/2022 11:02:54 Complicated Grief Complicated Grief Grief [...] friends and loved ones. General instructions Take zpal-inv-vkkprtk and prescription medicines only as told by [...] 08/31/2006 Document Revised: 08/13/2018 Document Reviewed: 06/16/2018 [employer] Patient Education 2020 CitalDoc. 01/29/2022 11:02:50 Alcohol Abuse and Dependence Information, [...] for Disease Control and Prevention: www.cdc.gov National [place] on Alcohol Abuse and Alcoholism: www.niaaa.nih.gov Alcoholics [...] 08/25/2017 Document Revised: 12/20/2019 Document Reviewed: 11/08/2019 [employer] Patient Education 2019 CitalDoc. 01/29/2022 11:02:46 Managing Bipolar Disorder Managing Bipolar [...] Follow these instructions at home: Medicines Take tkqi-vjp-jhrgnam and prescription medicines only as told by your health care provider or pharmacist. Ask your pharmacist what yihn-lhy-krnkfgk cold medicines you should avoid. Some medicines [...] a problem, search for a local or [facility]. Public mental health [...] 12/31/2017 Document Revised: 12/23/2019 Document Reviewed: 12/31/2017 Else[employer] Patient Education 2019 CitalDoc. [facility] 05-02-2022 Miscellaneous Notes* Telephone Encounter [...] another consult she would. Please advise at [phone] [facility] Miscellaneous Notes* Telephone Encounter - Rocio [...] understood. Rocio Hester Ma [facility] History of Present illness Narrative* Radha Jara - 02/01/2021 9:47 AM EDT CLINICAL PHARMACY NOTE: MEDS TO BEDS Total # of Prescriptions Filled: 2 The following medications were delivered to the patient: Percocet 5-325mg Augmentin 875-125mg Additional Documentation: delivered to patient in room 236 02/01 at 9:44am. Co- pay paid with credit on [employer] ($4.31). * Gamaliel Vickers DO - 01/31/2021 [...] Advance diet Overall improvement * Melissa Singh [facility] - 01/30/2021 9:03 PM EDT Images from [...] Singh RPH 19:00 PM [facility]: 1(186) 467-487205-15-2021 History of Present illness Narrative* Jasmine Burch RN - 01/26/2021 1:51 PM EDT Infusion complete, no complications, IV out and dressing applied. Encouraged patient to call with any questions. Patient left unit with steady gait to private residence. [facility]: 1(248) 256-451604-27-2021 History of Present illness Narrative* Radha Jara - 01/08/2021 5:59 PM EDT CLINICAL PHARMACY NOTE: MEDS TO [facility] Select Patient?: No Total # of Prescriptions Filled: 3 The following medications were delivered to the patient: Percocet 5-325mg Promethazine 25mg Pantoprazole 40mg Total # of Interventions Completed: 0 Time Spent (min): 0 Additional Documentation: delivered to patient in room 247 01/08 at 5:43pm. Co- pay paid with clover ($7.02). * Gal Atwood DO - 01/08/2021 [...] Morbid obesity with BMI of 40.0-44.9, adult ([facility]) [E66.01, Z68.41] 05/16/2020 30 y.o. female postop [...] obtained for OR 01-07-21 [facility]: 1(428) 990-435404-27-2021 Hospital Discharge instructions* Instructions* Gamaliel Vickers DO - 01/08/2021 Discharge Instructions for Surgery You had a Tian-en- Y Gastric Bypass (56798) surgery to treat obesity. Recovery from this [...] scheduled appointment, please call the office at [phone]. Call Your Doctor If Any of the [...] emergency, call 911 immediately. [facility]: 1(473) 504-117904-12-2021 Hospital Discharge instructions* Instructions* Mahesh Price APRN - INTERACTIVE MEDIA SPECIALIST - 12/24/2020 Images from the original note [...] drive you home after your procedure. Your chair car driver must be 18 years of age [...] questions, call the Pre-Admission Testing Unit at [phone]. Day of Surgery/Procedure As a patient at [facility] you can expect quality medical and nursing care that is centered on your individual needs. Our goal is to make your surgical experience as comfortableas possible . Directions to the Surgery Center [facility] is located at [address] [place] [address]. Please pull into the Emergency parking lot and stop at the SWYF arcos. We offer free gripper attacher service for all our surgery patients, if you choose not to have SWYF parking we have additional parking across the street.You will enter the facility following the [facility] sign. Please stop at the sulky driver desk where you will be checked in by the staff. If you have any questions please call [phone]. Transportation after your procedure. You will need a friend or family member to drive you home after your procedure. Your chair car driver must be18 years of age or [...] You may shave your face or neck. Healy your teeth but do not swallow water. [...] or the day of surgery, please call [phone], or [phone] documented [facility]: 1(962) 510-770804-12-2021 History of Present illness Narrative* Mahesh Price APRN - INTERACTIVE MEDIA SPECIALIST - 12/24/2020 10:30 AM EDT Anesthesia Focused [...] Nicole for therapy Borderline personality disorder (HCC) [facility], therapist Jacki Nicole Depression Flat feet, bilateral Foot pain, bilateral Dr. Octavio Sims, button broacher GERD (gastroesophageal reflux disease) managed by Dr. [...] BLEVINS 12/24/20 11:38 AM documented in this [facility] Work Phone: evaluation + Plan note No data available for this section [facility] Evaluation + Plan note Referrals to Other Providers Referred by: Aimee Walker CNP [facility] Evaluation + Plan note Future Appointments Appointment Date:04/04/2022 02:40:00 PM Scheduled Provider:Rahul Salinas DO Location:[facility]ments [...] w/CAD if perf and 3D [place] 04/21/22 [facility] Evaluation + Plan note Future Appointments Appointment Date:08/22/2022 10:20:00 AM Scheduled Provider:Rahul Salinas DO Location:[facility] Appointment Type: Hospital Follow Up w/TCM Future Scheduled Tests Laboratory* CBC w/ Auto Diff 07/21/22 Radiology* MA Mamm Screen w/CAD if perf and 3D [place] 04/21/22 [facility] Future Appointments Appointment Date:11/03/2022 01:00:00 PM Scheduled Provider:Nakia Shah Location:[facility] Appointment Type: Open Future Scheduled Tests Laboratory* CBC w/ Auto Diff 07/21/22 Radiology* MA Mamm Screen w/CAD if perf and 3D [place] 04/21/22 [facility] Future Appointments Appointment Date:01/02/2023 10:00:00 AM Scheduled Provider:Nakia Shah Location:[facility] Appointment Type: Open Future Scheduled Tests Laboratory* CBC w/ Auto Diff 07/21/22 Radiology* MA Mamm Screen w/CAD if perf and 3D [place] 04/21/22 [facility] Evaluation + Plan note Future Appointments Appointment Date:12/05/2022 09:00:00 AM Scheduled Provider: Location:[facility] Services Appointment Type:Surgery FT Appointment Date:01/02/2023 10:00:00 AM Scheduled Provider:Nakia Shah Location:[facility] Appointment Type: Open Future Scheduled Tests Laboratory* CBC w/ Auto Diff 07/21/22 Radiology* MA Mamm Screen w/CAD if perf and 3D [place] 04/21/22 [facility] Future Appointments Appointment Date:12/25/2023 10:15:00 AM Scheduled Provider:Otto Larsen MD [facility] Future Appointments Appointment Date:11/10/2024 08:00:00 AM Scheduled Provider: [facility] Type:US Abdominal/Pelvis (FT) Future Scheduled Tests Radiology* US Abdomen, Limited 11/10/24 [facility] Evaluation + Plan note Future Appointments Appointment Date:11/15/2024 01:45:00 PM Scheduled Provider:Orlando Kate PA-C Location:[facility] [place] Appointment Type:Pain Management - New (FT) [facility] evaluation + Plan note Future Appointments Appointment Date:12/19/2024 10:15:00 AM Scheduled Provider:Orlando Kate PA-C Location:[facility] [place] Appointment Type:Pain Management - Follow Up (FT) [facility] evaluation + Plan note Future Appointments Appointment Date:01/24/2025 09:30:00 AM Scheduled Provider: [facility] Type:Surgery FT Appointment Date:01/27/2025 10:15:00 AM Scheduled Provider:Orlando Kate PA-C Location:[facility] [place] Appointment Type:Pain Management - Follow Up (FT) [facility] evaluation + Plan note Future Appointments Appointment Date:02/13/2025 08:30:00 AM Scheduled Provider: [facility] Type:Surgery FT Appointment Date:02/15/2025 01:30:00 PM Scheduled Provider:Orlando Kate PA-C Location:[facility] [place] Appointment Type:Pain Management - Follow Up (FT) Appointment Date:02/16/2025 01:00:00 PM Scheduled Provider:Jak Peace MD Location:[facility] Appointment Type:Cardiology New Patient (FT) [facility] evaluation + Plan note Future Appointments Appointment Date:02/17/2025 09:15:00 AM Scheduled Provider: [facility] Type:Surgery FT Appointment Date:02/20/2025 02:30:00 PM Scheduled Provider:Orlando Kate PA-C Location:[facility] [place] Appointment Type:Pain Management - Follow Up (FT) Appointment Date:03/16/2025 02:30:00 PM Scheduled Provider:Jak Peace MD Location:[facility] Appointment Type:Cardiology Follow Up (FT) Future Scheduled Tests Radiology* NM Myocardial Spect Rest/Stress 1 Day 02/16/25 [facility] evaluation + Plan note Future Appointments Appointment Date:03/13/2025 11:30:00 AM Scheduled Provider: [facility] Type:NM Myocard Spect Multi Rest/Stress-Res Appointment Date:03/13/2025 12:30:00 PM Scheduled Provider: [facility] App[facility] Type:NM Myocard Spect Multi Rest/Stress - R Appointment Date:03/13/2025 01:00:00 PM Scheduled Provider: [facility] Type:NM Myocard Spect Multi Rest/Stress-Str Appointment Date:03/13/2025 02:00:00 PM Scheduled Provider: [facility] Type:NM Myocar Spect Multi Rest/Stress - St Appointment Date:03/16/2025 02:30:00 PM Scheduled Provider:Jak Peace MD [facility]ointment Type:Cardiology Follow Up (FT) Future Scheduled Tests Radiology* NM Myocardial Spect Rest/Stress 1 Day 03/13/25 [facility] evaluation + Plan note Future Appointments Appointment Date:03/03/2025 08:30:00 AM Scheduled Provider: Location[facility] Appointment Type:Surgery FT Appointment Date:03/09/2025 12:30:00 PM Scheduled Provider:Babar Mayers DO [facility] [place] Appointment Type:Pain Management - Follow Up (FT) Appointment Date:03/13/2025 11:30:00 AM Scheduled Provider: [facility] App[facility] Type:NM Myocard Spect Multi Rest/Stress-Res Appointment Date:03/13/2025 12:30:00 PM Scheduled Provider: [facility] App[facility] Type:NM Myocard Spect Multi Rest/Stress - R Appointment Date:03/13/2025 01:00:00 PM Scheduled Provider: [facility] Type:NM Myocard Spect Multi Rest/Stress-Str Appointment Date:03/13/2025 02:00:00 PM Scheduled Provider: Location:[facility] Appointment Type:NM Myocar Spect Multi Rest/Stress - St Appointment Date:03/16/2025 02:30:00 PM Scheduled Provider:Jak Peace MD Location:[facility] Appointment Type:Cardiology Follow Up (FT) Future Scheduled Tests Radiology* NM Myocardial Spect Rest/Stress 1 Day 03/13/25 [facility] evaluation + Plan note Future Appointments Appointment Date:03/27/2025 08:45:00 AM Scheduled Provider: Location:[facility] Appointment Type:Surgery FT Appointment [...] St Appointment Date:05/02/2025 08:15:00 AM Scheduled Provider:Orlando Kaet PA-C Location[facility] Appointment Type:Pain Management - Follow Up (FT) Future Scheduled Tests Radiology* NM Myocardial Spect Rest/Stress 1 Day 04/17/25 [facility] evaluation note* Diagnosis Preop testing- Primary Preoperative examination, unspecified documented in this encounter [facility] Phone: [email or web address] note* Diagnosis Post-op pain- Primary Other acute postoperative pain Status post gastric bypass for obesity Bariatric surgery status Morbid obesity with BMI of 40.0-44.9, adult (HCC) Hiatal hernia Diaphragmatic hernia without mention of obstruction or gangrene documented in this encounter [facility] Phone: [email or web address] note* Diagnosis Dehydration documented in this encounter [facility] Phone: [email or web address] note* Diagnosis Generalized abdominal pain- Primary Abdominal pain, generalized documented in this encounter [facility] Phone: evaluation note* Diagnosis Surgery, elective- Primary Unspecified elective surgery for purposes other than remedying health states Omental infarction (HCC) Acute vascular insufficiency of intestine Intra-abdominal abscess (HCC) Peritoneal abscess documented in this encounter [facility] Phone: [email or web address] note* Diagnosis Omental infarction (HCC) Acute vascular insufficiency of intestine documented in this encounter [facility] Phone: [email or web address] note* Diagnosis Hypertrophy of breast- Primary Upper back pain Excess skin [facility] Diagnosis Burning tongue- Primary Glossodynia Irritation of oral cavity Other and unspecified diseases of the oral soft tissues [facility] this [facility]* Diagnosis Onset Date Resolution Status Bipolar 1 disorder acute Blurry vision acute Borderline personality disorder acute Headache acute MDD (major depressive disorder) acute Palpitation acute [facility] [employer] Work Phone: Evaluation note* Diagnosis Idiopathic intracranial hypertension- Primary Benign intracranial hypertension Depression, unspecified depression type Primary hypertension Unspecified essential hypertension Hx of gastric bypass Bariatric surgery status H/O foot surgery Personal history of surgery to other organs documented [facility] this encounter [facility]No assessment information [facility] Work Phone: Evaluation noteNo InformationNort [employer] Other Evaluation note* Diagnosis Panic disorder- Primary Panic disorder without agoraphobia Borderline personality disorder (HCC) Borderline personality disorder Bipolar affective disorder in remission (HCC) Chronic alcoholism in remission (HCC) Other and unspecified alcohol dependence, in remission Routine health maintenance Routine general medical examination at a health care facility documented in this encounter [facility]* Diagnosis Panic disorder- Primary Panic disorder without agoraphobia documented in this encounter [facility] note* Diagnosis Routine health maintenance- Primary Routine [...] disorder, unspecified type documented [facility] this encounter [facility]* Diagnosis 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 [facility]* Diagnosis Idiopathic intracranial hypertension Benign intracranial hypertension [facility] this [facility]* Diagnosis Chest pain, unspecified type- Primary Palpitations Bipolar affective disorder in remission (HCC) History of substance abuse (HCC) Other, mixed, or unspecified nondependent drug abuse, unspecified Borderline personality disorder (HCC) Borderline personality disorder Serum calcium elevated Hypercalcemia documented [facility] this encounter [facility]* Diagnosis Mass of upper outer quadrant of left breast documented in this [facility]* Diagnosis Abnormal mammogram- Primary Abnormal mammogram, unspecified Mass of upper outer quadrant of left breast Fibrocystic breast changes of both breasts Mastodynia Inversion of left nipple Bloody discharge from left nipple Other sign and symptom in breast Nipple discharge Other sign and symptom in breast Mass of upper outer quadrant of left breast documented [facility] this encounter [facility]* Diagnosis Abnormal mammogram of left breast [facility] in this [facility]* Diagnosis Bipolar affective disorder in remission (HCC)- Primary Borderline personality disorder (HCC) Borderline personality disorder Anxiety disorder, unspecified type Chest pain, unspecified type Iron deficiency anemia, unspecified iron deficiency anemia type documented in this encounter [facility] note* Diagnosis Angina pectoris Other and unspecified angina pectoris Shortness of breath Palpitations Family history of ischemic heart disease Primary hypertension Unspecified essential hypertension Current smoker BMI 29.0-29.9,adult documented in this encounter [facility] Work Phone: Evaluation note* Diagnosis Bipolar affective disorder in remission (HCC) Borderline personality disorder (HCC) Borderline personality disorder Anxiety disorder, unspecified type documented in this encounter [facility] note* Diagnosis Angina pectoris Other and unspecified angina pectoris Shortness of breath Palpitations Family history of ischemic heart disease Primary hypertension Unspecified essential hypertension documented in this encounter [facility] Work Phone: Evaluation note* Diagnosis Ataxia- Primary Lack of coordination Myalgia Unspecified myalgia and myositis documented in this encounter [facility]* Diagnosis Myalgia Unspecified myalgia and myositis documented in this encounter [facility]* Diagnosis Bipolar affective disorder in remission (HCC) Borderline personality disorder (HCC) Borderline personality disorder Anxiety disorder, unspecified type [facility]* Diagnosis Acute pharyngitis, unspecified etiology- Primary Pharyngitis, unspecified etiology documented in this encounter [facility] note* Diagnosis Pseudoangiomatous stromal hyperplasia of breast- Primary Hypertrophy of breast documented in this encounter [facility] HealthcareHistory general Narrative - Reported* Type Description Date Medical History plantar fasciitis Medical History migraine headache Medical History borderline personality disorder Medical History chronic depression Medical History bipolar Surgical History C section Surgical History c section Surgical History tubal ligation Surgical History HYSTERECTOMY Surgical History oral surgery Surgical History gastric bypass Hospitalization History mental health issues Unblab Other History general Narrative - Reported* Type Description Date Medical History plantar fasciitis Medical History migraine headache Medical History borderline personality disorder Medical History chronic depression Medical History bipolar Surgical History C section Surgical History c section Surgical History tubal ligation Surgical History HYSTERECTOMY Surgical History oral surgery Surgical History gastric bypass Hospitalization History mental health issues Hospitalization History [facility] - hysterectomy 03/ 023 Unblab Other Hospital Discharge instructions No data available for this section [facility] Discharge instructions Additional Instructions Follow-up with your PCP and neurology Rest Push fluids Tylenol or Motrin if needed for pain Return here if any problems persist [facility] Work Phone: Progress note No data available for this section [facility] Outpatient Procedure (Routine) - New Request Specialty Diagnoses / Procedures Referred By Simona bailey Ref[facility] Diagnoses Chest pain, unspecified type Palpitations Procedures ECG COMPLETE ECG ROUTINE ECG W/LEAST 12 LDS W/[place] [address] [place] [address] [facility] [address] [place] [address] Referral ID Status Reason Start Date Expiration Date Visits Requested Visits Authorized [id number] New Request Auto-Generat ed Referral 07/01/2025 1 1 [facility] for referral (narrative)* Diagnostic Procedure Only (Routine) - Closed Specialty Diagnoses / Procedures Referred By Contac t Referred To Contact [facility] Diagnoses Abnormal mammogram of left breast Procedures US BIOPSY BREAST LEFT BX BREAST W/DEVICE 1ST LESION ULTRASOUND GUID Abi Asif MD [address] [place] [id number] [facility] [address] [place] [id number] Referral ID Status Reason Start Date Expiration Date V isits Requested Visits Authorized [id number] Closed Auto-Generate d Referral 07/05/2024 08/04/2025 1 1 [facility] for referral (narrative)No reason for referral information [facility]Park[facility] Work Phone: [facility] Narrative* Diagnostic Procedure Only (Routine) - Closed Specialty Diagnoses / Procedures Referred By Contac t Referred To Contact [facility] Diagnoses Abnormal mammogram of left breast Procedures US BIOPSY BREAST LEFT BX BREAST W/DEVICE 1ST LESION ULTRASOUND GUID Abi Asif MD [address] [address] [facility] [address] [place] [address] Referral ID Status Reason Start Date Expiration Date V isits Requested Visits Authorized [id number] Closed Auto-Generate d Referral 07/05/2024 08/04/2025 1 1 [facility] for visit Narrative* Cardiovascular (Routine) - Authorized Specialty Diagnoses / Procedures Referred By Contac t Referred To Contact Cardiology Diagnoses Angina pectoris Shortness of breath Procedures ECG 12 Lead Aleah Howard MD [address] [address] Phone: tel: fax: Referral ID Status Reason Start Date Expiration Date V isits Requested Visits Authorized [id number] Authorized 08/08/2024 08/08/2025 1 1 [facility] Work Phone: Reason for visit Narrative* CV Imaging (Routine) - Authorized Specialty Diagnoses / Procedures Referred By Contac t Referred To Contact Cardiology Diagnoses Angina pectoris Shortness of breath Palpitations Family history of ischemic heart disease Primary hypertension Procedures Transthoracic Echo Complete MI ECHO TTHRC R-T 2D W/WOM-MODE COMPL SPEC&COLR D Aleah Howard MD [address] [address] Phone: tel: fax: Referral ID Status Reason Start Date Expiration Date Visits Requested Visits Authorized [id number] Authorized Perform Procedure 08/08/2025 1 1 [facility] Work Phone: Assessments Diagnosis Preoperative testing Preoperative examination, unspecified Diagnosis Gastroesophageal reflux disease with esophagitis without hemorrhage Advance Directives No Advanced Directives Records FoundDocuments on File Type Date Recorded Patient Pastoral Counselor Expl anation ACP-Advance Directive ACP-Power of Loan Adviser Documents on File Type Date Recorded Patient Pastoral Counselor Expl anation ACP-Advance Directive ACP-Power of Loan Adviser Latest Code Status on File Code Status [...] Unknown Discharge Instructions * Instructions* Yoli Hardy, DO - 09/28/2020 POST-ENDOSCOPY INSTRUCTIONS 1. ACTIVITY [...] questions, PLEASE call your doctor or the [facility] center at documented in this encounter Reason for Referral Status Reason Specialty Diagnoses / Procedures Referre d By Contact Referred To Contact Closed Radiology Diagnoses Omental infarction (HCC) Procedures CT ABDOMEN PELVIS W IV CONTRAST Additional Contrast? Oral Gamaliel Vickers DO [address] [place] [address] Specialty Diagnoses / Procedures Referred By Contac t Referred To Contact Ophthalmology Diagnoses Idiopathic intracranial hypertension Procedures CONSULT TO OPHTHALMOLOGY OFFICE/OUTPATIENT [facility] 60-74 MINUTES Eileen Alvarez MD [address] [place] [address] Referral ID Status Reason Start Date Expiration Date Visits Requested Visits Authorized [id number] Authorized PCP Requested Referral 11/20/2022 11/20/2023 1 1 Specialty Diagnoses / Procedures Referred By Contac t Referred To Contact MR IMAGING Diagnoses Idiopathic intracranial hypertension Procedures MRV BRAIN WO/W IVCON MRA; HEAD W & WO CONTRAST Eileen Alvarez MD [address] [place] [address] Mr Imaging Referral ID Status Reason Start Date Expiration Date Visits Requested Visits Authorized [id number] Pending Review Auto-Generat ed Referral 11/20/2022 12/20/2023 1 1 Specialty Diagnoses / Procedures Referred By Contac t Referred To Contact MR IMAGING Diagnoses Mass of upper outer quadrant of left breast Procedures MRI BREAST BX WO/W IVCON LEFT BX BREAST W/DEVICE 1ST L[place]ION [place] [address] [place] [address] [place] [address] Referral ID Status Reason Start Date Expiration Date Visits Requested Visits Authorized [id number] Pending Review Auto-Generat ed Referral 03/08/2024 04/07/2025 1 1 Specialty Diagnoses / Procedures Referred By Contac t Referred To Contact Diagnoses Class 1 obesity due to excess calories without serious comorbidity with body mass index (BMI) of 30.0 to 30.9 in adult Procedures ENDOCRINE MEDICAL WEIGHT MANAGEMENT OFFICE/OUTPATIENT [facility] [address] [place] [address] [place] [address] Referral ID Status Reason Start Date Expiration Date Visits Requested Visits Authorized [id number] Authorized PCP Requested Referral 03/08/2024 03/08/2025 1 1 Specialty Diagnoses / Procedures Referred By Contac t Referred To Contact MR IMAGING Diagnoses Pancreas cyst Procedures MRI 3D POST PROCESSING 3D RENDERING W/INTERP&POSTPROC DIFF WORK STATION Leonela Aguirre MD [address] [place] [address] Mr Imaging [place] [address] Referral ID Status Reason Start Date Expiration Date V isits Requested Visits Authorized [id number] Closed Auto-Generate d Referral 08/31/2023 09/29/2024 1 1 Specialty Diagnoses / Procedures Referred By Contac t Referred To Contact MR IMAGING Diagnoses Pancreas cyst Procedures MRI PANC/TANMAY WO/W IVCON MRI ABDOMEN W/O & W/CONTRAST MATERIAL Leonela Aguirre MD [address] [place] [address] Mr Imaging [place] [address] Referral ID Status Reason Start Date Expiration Date V isits Requested Visits Authorized [id number] Closed Auto-Generate d Referral 03/01/2024 03/31/2024 1 1 Specialty Diagnoses / Procedures Referred By Contac t Referred To Contact MR IMAGING Diagnoses Idiopathic intracranial hypertension Procedures MRV BRAIN WO/W IVCON MRA; HEAD W & WO CONTRAST Eileen Alvarez MD [address] [place] [address] Mr Imaging [place] [address] Referral ID Status Reason Start Date Expiration Date V isits Requested Visits Authorized [id number] Closed Auto-Generate d Referral 01/29/2023 02/28/2023 1 1 Specialty Diagnoses / Procedures Referred By Contac t Referred To Contact MR IMAGING Diagnoses Mass of upper outer quadrant of left breast Fibrocystic breast changes of both breasts Mastodynia Inversion of left nipple Bloody discharge from left nipple Nipple discharge Procedures MRI BREAST WO/W IVCON BILATERAL MRI BREAST WITHOUT&WITH CONTRAST W/CAD BILATERAL Fatuma Tyler APRN.INTERACTIVE MEDIA SPECIALIST [address] [place] [phone] Mr Imaging [place] [address] Referral ID Status Reason Start Date Expiration Date Visits Requested Visits Authorized [id number] Pending Review Auto-Generat ed Referral 08/03/2025 1 1 Specialty Diagnoses / Procedures Referred By Simona t Referred To Contact BR IMAGING Diagnoses Mass of upper outer quadrant of left breast Procedures US BREAST LTD LEFT US BREAST UNI REAL TIME WITH IMAGE LIMITED Fatuma Tyler APRN.INTERACTIVE MEDIA SPECIALIST [address] [place] [address] Br Imaging [address] [place], [place] [phone] Referral ID Status Reason Start Date Expiration Date V isits Requested Visits Authorized [id number] Closed Auto-Generate d Referral 07/04/2024 09/13/2024 1 1 Specialty Diagnoses / Procedures Referred By Simona t Referred To Contact BR IMAGING Diagnoses Mass of upper outer quadrant of left breast Procedures LINDA DIAG W AV BILATERAL DIGITAL BREAST TOMOSYNTHESIS BILATERAL Fatuma Tyler APRN.INTERACTIVE MEDIA SPECIALIST [address] [place] [phone] [facility] [address] [place] [phone] Referral ID Status Reason Start Date Expiration Date V isits Requested Visits Authorized [id number] Closed Auto-Generate d Referral 07/04/2024 09/13/2024 1 [...] 0am [email or web address] December 16, 2024 11:2 9am Chief Complaint Admit Date April 20, 2025 10: 00am N64.89 N62 April 26, 2025 7: 45am Additional Source Comments INFORMATION SOURCE (unrecogn ized section and content) DATE CREATED AUTHOR 10/06/2020 [facility] DATE CREATED AUTHOR AUTHOR'S ORGANIZ ATION 01/06/[address] [facility] DATE CREATED AUTHOR AUTHOR'S ORGANIZ ATION 08/16/2022 [facility] DATE CREATED AUTHOR AUTHOR'S ORGANIZ ATION 11/15/2022 [facility] DATE CREATED AUTHOR AUTHOR'S ORGANIZ ATION 08/17/2023 [facility] DATE CREATED AUTHOR AUTHOR'S ORGANIZ ATION 09/04/2023 [facility] DATE CREATED AUTHOR AUTHOR'S ORGANIZ ATION 10/26/2023 [facility] DATE CREATED AUTHOR AUTHOR'S ORGANIZ ATION 03/12/2024 [facility] DATE CREATED AUTHOR AUTHOR'S ORGANIZ ATION 09/16/2024 [facility] DATE CREATED AUTHOR AUTHOR'S ORGANIZ ATION 09/25/2024 [facility] DATE CREATED AUTHOR AUTHOR'S ORGANIZ ATION 09/26/2024 [facility] DATE CREATED AUTHOR AUTHOR'S ORGANIZ ATION 09/30/2024 [facility] DATE CREATED AUTHOR AUTHOR'S ORGANIZ ATION 10/19/2024 [facility] DATE CREATED AUTHOR AUTHOR'S ORGANIZ ATION 12/13/2024 [facility] DATE CREATED AUTHOR AUTHOR'S ORGANIZ ATION 01/29/2025 [facility] DATE CREATED AUTHOR AUTHOR'S ORGANIZ ATION 02/19/2025 [facility] DATE CREATED AUTHOR AUTHOR'S ORGANIZ ATION 03/05/2025 [facility] DATE CREATED AUTHOR AUTHOR'S ORGANIZ ATION 03/17/2025 [facility] DATE CREATED AUTHOR AUTHOR'S ORGANIZ ATION 04/15/2025 [facility] DATE CREATED AUTHOR AUTHOR'S ORGANIZ ATION 04/28/2025 [facility] DATE CREATED AUTHOR AUTHOR'S ORGANIZ ATION 04/29/2025 [facility] Reason for Visit (unrecogniz ed section and content) Status Reason Specialty Diagnoses / Procedures Re ferred By Contact Referred To Contact Diagnoses GERD (gastroesophageal reflux disease) GERD/OBESITY Procedures MI ESOPHAGOGASTRODUODENOSCOPY TRANSORAL DIAGNOSTIC EGD ESOPHAGOGASTRODUODENOSCOPY Gamaliel Vickers DO [address] [place] [phone] Swyzzle Status Reason Specialty Diagnoses / Procedures Referre d By Contact Referred To Contact Closed Radiology Diagnoses Gastro-esophageal reflux disease with esophagitis, without bleeding Procedures CHG RADIOLOGIC EXAM UPR GI TRC SINGLE CONTRAST STUDY Gamaliel Vickers DO [address] [place] [address] [facility] [address] [place] [phone] Status Reason Specialty Diagnoses / Procedures Referre d By Contact Referred To Contact Diagnoses Morbid obesity (HCC) GERD (gastroesophageal reflux disease) MORBID OBESITY, GERD Procedures MI LAP GASTRIC BYPASS/TIAN-EN-Y XI LAPAROSCOPIC ROBOTIC GASTRIC BYPASS TIAN-EN-Y, LIVER BIOPSY, EGD- GI UNIT SCHEDULED. Gamaliel Vickers DO [address] [place] [address] Swyzzle Reason Comments Abdominal Pain Diffuse cramping and bloating. Onset 2 days ago. Pt reports she is 3.5weeks post Gastric bypass. Last BM this AM Reason Comments Abdominal Pain possible abscess Status Reason Specialty Diagnoses / Procedures Referre d By Contact Referred To Contact Diagnoses Intra-abdominal abscess (HCC) Omental infarction (HCC) Gamaliel Vickers DO [address] [place] [phone] [facility] Status Reason Specialty Diagnoses / Procedures Referre d By Contact Referred To Contact Closed Radiology Diagnoses Omental infarction (HCC) Procedures CT ABDOMEN PELVIS W IV CONTRAST Additional Contrast? Oral Gamaliel Vickers DO [address] [place] [phone] Reason Comments Orders Reason Comments Patient Question Appointment Reason Comments Mouth Sores blood in the back of throat Reason Comments Scheduling Reason Comments Appointment Reason Comments Headache Reason Comments Refill Request Specialty Diagnoses / Procedures Referred By Contac Referred To Contact Diagnoses Gastroesophageal reflux disease, unspecified whether esophagitis present Obesity (BMI 30-39.9) Gastroesophageal reflux disease, unspecified whether esophagitis present [K21.9] Obesity (BMI 30-39.9) [E66.9] Procedures MI EGD TRANSORAL BIOPSY SINGLE/MULTIPLE MI ESOPHAGOGASTRODUODENOSCOPY TRANSORAL DIAGNOSTIC MI EGD BALLOON DILATION ESOPHAGUS <30 MM DIAM EGD BIOPSY Gamaliel Vickers DO [address] [facility] [address] [place] [address] [facility] [address] [place] [address] Referral ID Status Reason Start Date Expiration Date Visits Re quested Visits Authorized [id number] 1 1 Reason Comments Establish Care Panic [...] W/O & W/CONTRAST MATERIAL Leonela Aguirre MD [address] [place] [address] Mr Imaging [place] [address] Referral ID Status Reason Start Date Expiration Date V isits Requested Visits Authorized [id number] Closed Auto-Generate d Referral 03/01/2024 03/31/2024 1 1 Reason Onset Date Comments ACM EDYTA RN 05/30/2024 ED Utilizatio n review per request of payer Specialty Diagnoses / Procedures Referred By Simona t Referred To Contact MR IMAGING Diagnoses Idiopathic intracranial hypertension Procedures MRV BRAIN WO/W IVCON MRA; HEAD W & WO Eileen Dang MD [address] [place] [phone] Mr Imaging [place] [address] Referral ID Status Reason Start Date Expiration Date V isits Requested Visits Authorized [id number] Closed Auto-Generate d Referral 01/29/2023 02/28/2023 1 [...] W AV BILATERAL DIGITAL BREAST TOMOSYNTHESIS BILATERAL Booker, Fatuma, ONCOLOGY PHARMACIST.INTERACTIVE MEDIA SPECIALIST [address] [place] [phone] Br Imaging [address] [place] [address] Referral ID Status Reason Start Date Expiration Date V isits Requested Visits Authorized [id number] Closed Auto-Generate d Referral 07/04/2024 09/13/2024 1 [...] Comments Population Health Navigation Outreach 10/17/2024 Mauricio Workbecarlotta Phan Reason Comments Left breast hypertrophy Specialty Diagnoses / Procedures Referred By Simona t Referred To Contact General Surgery Diagnoses Hypertrophy of breast Procedures MI OFFICE/OUTPATIENT NEW HIGH MDM 60 MINUTES Molly Gregorio, ONCOLOGY PHARMACIST-INTERACTIVE MEDIA SPECIALIST [address] [place] [address] Phone: tel: fax: [facility] [address] [facility] [address] [place] [address] Phone: tel: fax: Referral ID Status Reason Start Date Expiration Date V isits Requested Visits Authorized [id number] Closed Specialty Services Required 04/10/2025 10/07/2025 1 1 Ordered Prescriptions (unrec ognized section [...] Jasmine Burch RN)1129 (Stopped - Provider: Jasmine Bucrh RN) 0.9 % sodium chloride bolus (COMPLETED) [...] 1 dose 1142 (Given - Provid er: [facility]) iopamidol (ISOVUE-370) 76 % injection 75 mL (COMPLETED) 75 mL, Intravenous, IMG ONCE PRN, Other, Starting on Thu01/30/21 at 1137, For 1 dose 1142 (Given - Provid er: [facility]) Scheduled Medication Order 01/30/2021 01/31/2021 [...] hour of each other unless specifically ordered. 170 (Given - Provider: Orlando Guevara RN) fentaNYL [...] MARCO)1257 (New Bag - Provider: Wei Carter, RN)1632 (Stopped - Provider: Wei Carter, RN)2032 (New Bag - Provider: iRta Klein, RN) 0030 (Stopped - Provider: Rita Klein, MARCO)0559 (New Bag - Provider: Ritagenna Klien RN)0959 (Due: Stopped - Provider: Rita Klein [...] Heather Palacios RN)0939 (Given - Provider: Wei Raul, RN)1424 (Given - Provider: Wei Carter, RN)1921 (Given - Provider: Rita Klein, RN) 0404 (Given - Provider: Rita Klein, MARCO)0832 [...] dose, Starting on Thu09/18/23 at 0823, Until 09/18/23 at 2359, Pain Severe (7-10)
PHASE II
PACU only Source Comments (unrecognize d section and content) In the event this informatio n is protected by the Federal Confidentiality of Alcohol and Drug Abuse Patient Records regulations: The Federal rules restrict any use of the information to criminally investigate or prosecute any alcohol or drug abuse patient.[facility] the event this information is protected by the Federal Confidentiality of Alcohol and Drug Abuse Patient Records regulations: The Federal rules restrict any use of the information to criminally investigate or prosecute any alcohol or drug abuse patient.[facility] the event this information is protected by the Federal Confidentiality of Alcohol and Drug Abuse Patient Records regulations: The Federal rules restrict any use of the information to criminally investigate or prosecute any alcohol or drug abuse patient.[facility] Hospital[facility] the event this information is protected by the Federal Confidentiality of Alcohol and Drug Abuse Patient Records regulations: The Federal rules restrict any use of the information to criminally investigate or prosecute any alcohol or drug abuse patient.[facility] HospitalIn the event this information is protected by the Federal Confidentiality of Alcohol and Drug Abuse Patient Records regulations: The Federal rules restrict any use of the information to criminally investigate or prosecute any alcohol or drug abuse patient.[facility] HospitalIn the event this information is protected by the Federal Confidentiality of Alcohol and Drug Abuse Patient Records regulations: The Federal rules restrict any use of the information to criminally investigate or prosecute any alcohol or drug abuse patient.[facility] HospitalIn the event this information is protected by the Federal Confidentiality of Alcohol and Drug Abuse Patient Records regulations: The Federal rules restrict any use of the information to criminally investigate or prosecute any alcohol or drug abuse patient.[facility] HospitalIn the event this information is protected by the Federal Confidentiality of Alcohol and Drug Abuse Patient Records regulations: The Federal rules restrict any use of the information to criminally investigate or prosecute any alcohol or drug abuse patient.[facility] HospitalIn the event this information is protected by the Federal Confidentiality of Alcohol and Drug Abuse Patient Records regulations: The Federal rules restrict any use of the information to criminally investigate or prosecute any alcohol or drug abuse patient.[facility] HospitalIn the event this information is protected by the Federal Confidentiality of Alcohol and Drug Abuse Patient Records regulations: The Federal rules restrict any use of the information to criminally investigate or prosecute any alcohol or drug abuse patient.[facility] HospitalIn the event this information is protected by the Federal Confidentiality of Alcohol and Drug Abuse Patient Records regulations: The Federal rules restrict any use of the information to criminally investigate or prosecute any alcohol or drug abuse patient.[facility] HospitalIn the event this information is protected by the Federal Confidentiality of Alcohol and Drug Abuse Patient Records regulations: The Federal rules restrict any use of the information to criminally investigate or prosecute any alcohol or drug abuse patient.[facility] HospitalIn the event this information is protected by the Federal Confidentiality of Alcohol and Drug Abuse Patient Records regulations: The Federal rules restrict any use of the information to criminally investigate or prosecute any alcohol or drug abuse patient.[facility] HospitalIn the event this information is protected by the Federal Confidentiality of Alcohol and Drug Abuse Patient Records regulations: The Federal rules restrict any use of the information to criminally investigate or prosecute any alcohol or drug abuse patient.[facility] HospitalIn the event this information is protected by the Federal Confidentiality of Alcohol and Drug Abuse Patient Records regulations: The Federal rules restrict any use of the information to criminally investigate or prosecute any alcohol or drug abuse patient.[facility] HospitalIn the event this information is protected by the Federal Confidentiality of Alcohol and Drug Abuse Patient Records regulations: The Federal rules restrict any use of the information to criminally investigate or prosecute any alcohol or drug abuse patient.[facility] HospitalIn the event this information is protected by the Federal Confidentiality of Alcohol and Drug Abuse Patient Records regulations: The Federal rules restrict any use of the information to criminally investigate or prosecute any alcohol or drug abuse patient.[facility] HospitalIn the event this information is protected by the Federal Confidentiality of Alcohol and Drug Abuse Patient Records regulations: The Federal rules restrict any use of the information to criminally investigate or prosecute any alcohol or drug abuse patient.[facility] HospitalIn the event this information is protected by the Federal Confidentiality of Alcohol and Drug Abuse Patient Records regulations: The Federal rules restrict any use of the information to criminally investigate or prosecute any alcohol or drug abuse patient.[facility] HospitalIn the event this information is protected by the Federal Confidentiality of Alcohol and Drug Abuse Patient Records regulations: The Federal rules restrict any use of the information to criminally investigate or prosecute any alcohol or drug abuse patient.[facility] HospitalIn the event this information is protected by the Federal Confidentiality of Alcohol and Drug Abuse Patient Records regulations: The Federal rules restrict any use of the information to criminally investigate or prosecute any alcohol or drug abuse patient.[facility] HospitalIn the event this information is protected by the Federal Confidentiality of Alcohol and Drug Abuse Patient Records regulations: The Federal rules restrict any use of the information to criminally investigate or prosecute any alcohol or drug abuse patient.[facility] HospitalIn the event this information is protected by the Federal Confidentiality of Alcohol and Drug Abuse Patient Records regulations: The Federal rules restrict any use of the information to criminally investigate or prosecute any alcohol or drug abuse patient.[facility] HospitalIn the event this information is protected by the Federal Confidentiality of Alcohol and Drug Abuse Patient Records regulations: The Federal rules restrict any use of the information to criminally investigate or prosecute any alcohol or drug abuse patient.[facility] HospitalIn the event this information is protected by the Federal Confidentiality of Alcohol and Drug Abuse Patient Records regulations: The Federal rules restrict any use of the information to criminally investigate or prosecute any alcohol or drug abuse patient.[facility] HospitalIn the event this information is protected by the Federal Confidentiality of Alcohol and Drug Abuse Patient Records regulations: The Federal rules restrict any use of the information to criminally investigate or prosecute any alcohol or drug abuse patient.[facility] HospitalIn the event this information is protected by the Federal Confidentiality of Alcohol and Drug Abuse Patient Records regulations: The Federal rules restrict any use of the information to criminally investigate or prosecute any alcohol or drug abuse patient.[facility] HospitalIn the event this information is protected by the Federal Confidentiality of Alcohol and Drug Abuse Patient Records regulations: The Federal rules restrict any use of the information to criminally investigate or prosecute any alcohol or drug abuse patient.[facility] HospitalIn the event this information is protected by the Federal Confidentiality of Alcohol and Drug Abuse Patient Records regulations: The Federal rules restrict any use of the information to criminally investigate or prosecute any alcohol or drug abuse patient.[facility] HospitalIn the event this information is protected by the Federal Confidentiality of Alcohol and Drug Abuse Patient Records regulations: The Federal rules restrict any use of the information to criminally investigate or prosecute any alcohol or drug abuse patient.[facility] Care Team (unrecognized sect ion and content) Team Status: Active Member Role Status Dates Jennie Durand DO Primary Care Provider Active Team Status: Active Member Role Status Dates Lindy Keen APRN BOX FABRICATOR-C Primary Care Provider Activ e Start: April 20, 2025 Efrem Victor MD Attending Provider Active Start: April 20, 2025 Team Status: Inactive Member Role Status Dates Aaliyah Zamudio DO Attending Provider Active Start: April 26, 2025 End: April 26, 2025 Jennie Durand DO Primary Care Provider Active S tart: April 26, 2025 End: April 26, 2025 Team Status: Active Member Role Status Dates [...] Durand , DO Primary Care Provider Active DIANNE Bro-BC Attending Provider Active Team Status: Inactive Member Role Status Dates Jennie Durand , Primary Care Provider Active Jose Maria Nair , Emergency Provider Active Team Status: Inactive Member Role Status Dates Jennie Durand , Primary Care Provider Active Yoli Norris MD Emergency Provider Active Change Booth Attendant Relationship Specialty Start Date End Date Jennie Durand DO [address] [place] [phone] PCP - General Family Medicine 11/19/22 Team [...] December 31, 2023 End: December 31, 2023 Change Booth Attendant Relationship Specialty [place] [address] [place] [address] PCP - General Family Medicine 01/04/24 Nilo Prado MD [address] [place] [address] Referring Gastroenterology 08/17/23 Change Booth Attendant Relationship Specialty [place] [address] [place] [address] PCP - General Family Medicine 01/04/24 Nilo Prado MD [address] [place] [address] Referring Gastroenterology 08/17/23 Change Booth Attendant Relationship Specialty [place] [address] [place] [address] PCP - General Family Medicine 01/04/24 Nilo Prado MD [address] [place] [phone] Referring Gastroenterology 08/17/23 Change Booth Attendant Relationship Specialty [place] [address] [place] [address] PCP - General Family Medicine 01/04/24 Nilo Prado MD [address] [place] [phone] Referring Gastroenterology 08/17/23 Change Booth Attendant Relationship Specialty [place] [address] [place] [address] PCP - General Family Medicine 01/04/24 Nilo Prado MD [address] [place] [address] Referring Gastroenterology 08/17/23 Change Booth Attendant Relationship Specialty [place] [address] [place] [address] PCP - General Family Medicine 05/30/24 Nilo Prado MD [address] [place] [address] 25158 Referring Gastroenterology 08/17/23 Change Booth Attendant Relationship Specialty [place] [address] [place] [address] PCP - General Family Medicine 05/30/24 Nilo Prado MD [address] [place] [address] 13900 Referring Gastroenterology 08/17/23 Change Booth Attendant Relationship Specialty [place] [address] [place] [address] PCP - General Family Medicine 05/30/24 Nilo Prado MD [address] [place] [address] 90984 Referring Gastroenterology 08/17/23 Change Booth Attendant Relationship Specialty [place] [address] [place] [address] PCP - General Family Medicine 05/30/24 Nilo Prado MD [address] [place] [address] 60091 Referring Gastroenterology 08/17/23 Change Booth Attendant Relationship Specialty [place] [address] [place] [address] PCP - General Family Medicine 05/30/24 Nilo Prado MD [address] [place] [address]117 Referring Gastroenterology 08/17/23 Change Booth Attendant Relationship Specialty [place] [address] [place] [address] PCP - General Family Medicine 05/30/24 Nilo Prado MD [address] [place] [address] 29040 Referring Gastroenterology 08/17/23 Change Booth Attendant Relationship Specialty [place] [address] [place] [address] PCP - General Family Medicine 05/30/24 Nilo Prado MD [address] [place] [address] 90447 Referring Gastroenterology 08/17/23 Change Booth Attendant Relationship Specialty [place] [address] [place] [address] PCP - General Family Medicine 05/30/24 Nilo Prado MD [address] [place] [address] Referring Gastroenterology 08/17/23 Change Booth Attendant Relationship Specialty [place] [address] [place] [address] PCP - General Family Medicine 05/30/24 Nilo Prado MD [address] [place] [address]42 Referring Gastroenterology 08/17/23 Change Booth Attendant Relationship Specialty [place] [address] [place] [address] PCP - General Family Medicine 05/30/24 Nilo Prado MD [address] [place] [address]09 Referring Gastroenterology 08/17/23 Change Booth Attendant Relationship Specialty [place] [address] [place] [address] PCP - General Family Medicine 05/30/24 Nilo Prado MD [address] [place] [address]609 Referring Gastroenterology 08/17/23 Change Booth Attendant Relationship Specialty Start Date End Date Tevin Carson [address] [place] [address] PCP - General Family Medicine 05/30/24 Nilo Prado MD [address] [place] [address]85 Referring Gastroenterology 08/17/23 [place] [address] [place] [address] Iron Guardrail Installer Family Medicine 08/22/24 Change Booth Attendant Relationship Specialty Start Date End Date Tevin Carson [address] [place] [address] PCP - General Family Medicine 05/30/24 Nilo Prado MD [address] [place] [address]78 Referring Gastroenterology 08/17/23 [place] [address] [facility] [place] [address] Iron Guardrail Installer Family Medicine 08/22/24 Change Booth Attendant Relationship Specialty Start Date End Date Kurt Balbuena [address] [address] 09/21/24 Change Booth Attendant Relationship Specialty Start Date End Date Kurt Balbuena [address] [address] 09/21/24 Team Status: Active Member Role Status Dates Jennie Durand DO Primary Care Provider Active S tart: July 03, 2024 Julio Peña DO Attending Provider Active Sta rt: July 03, 2024 Change Booth Attendant Relationship Specialty Start Date End Date Kurt Balbuena [address] [address] 09/21/24 Change Booth Attendant Relationship Specialty Start Date End Date Kurt Balbuena [address] [address] 09/21/24 Corby Larsen DO [address] [place] [id number] Referring Physician Neurology 09/27/24 Team Status: Inactive Member Role Status Dates NON STAFF Primary Care Provider Active Start: December 16, 2024 End: December 16, 2024 Corby Larsen DO Attending Provider Active Start: December 16, 2024 End: December 16, 2024 Change Booth Attendant Relationship Specialty [place] [address] [place] [address] PCP - General Family Medicine 05/30/24 Nilo Prado MD [address] [place] [address] Referring Gastroenterology 08/17/23 Lisha Bianchi APRN.CNP [address] [place] [address] Iron Guardrail Installer Family Medicine 12/16/24 Change Booth Attendant Relationship Specialty Start Date End Date Kurt Balbuena NP [address] [address] 09/21/24 Corby Larsen DO [address] [address] Referring Physician Neurology 09/27/24 Change Booth Attendant Relationship Specialty Start Date End Date Unallocated, Noms MD Inés [address] [place] [address] PCP - General Family Medicine 04/13/25 Kurt Balbuena NP [address] [address] 09/21/24 Corby Larsen DO [address] [address] Referring Physician Neurology 09/27/24 Goals (unrecognized section and content) Goals may [...] BE BASED ON THE PRIMARY CLINICAL RECORDS. [facility], [facility]. provides no warranty or guarantee of the accuracy or completeness of information in this document.
[2025-05-01 10:50] LABS: Folate 31.50 ng/mL (8.60-58.90)
[2025-05-02 04:07] LABS: Vitamin B12 796 pg/mL (232-1245)
== END 2025-05-01 08:12 | disposition home or self-care (01) ==
LOC: LAB 08:13
DX: R53.83 Other fatigue (principal)
CPT/HCPCS: 36415; 82607; 82746

== ENCOUNTER 2025-05-07 08:16 | Emergency (ER) | payer MEDICARE, MEDICAID, SELFPAY ==
--- OUTSIDE RECORDS SUMMARY | 2024-11-08 06:00 | XMS_ITS ---
Author Organization [facility] Address [address] [facility] [place] [place] [address] Care Team Providers Care Access Representative Name Role Phone Ilda Lloyd Primary Care Provider Raghav Walton Unavailable [phone] Jennifer Shaikh Unavailable [phone] Encounters Encounter Location Date Provider Diagnosis [address] [place] [address] 11/08/2024 Jennifer Shaikh Plan Of Treatment No Information Progress Notes * LEILA HASSAN LDOB:1990 (34 yo F)Acc No.[id number]:11/08/2024 F/U - Patient Patient: RUTH BARBOURURSULA Bach Provider: Crystal Shaikh :1990 A ge:33 Y S ex:Female Date:11/08/2024 Address:[address] [place], [place] [id number] Pcp:Ilda Lloyd Subjective: * Chief Complaints: * Objective: Therapeutic Interventions: Assessment: Plan: * Images: Care Plan Details* * Electronic signature of FRANCISCO JAVIER Reese on 05/07/2025 at 08:24 AM EDT Sign off status: Pending * Provider: Crystal Shaikh Date: 0 11/08/2024 Generated for Printi ng/Faxing/eTransmitting on: 0 05/07/2025 08:24 AM EDT
--- OUTSIDE RECORDS SUMMARY | 2024-11-22 05:30 | XMS_ITS ---
Author Organization [facility] es Address [address] [facility] [place] [place] [address] Care Team Providers Care Manager Massage Department Name Role Phone Ilda Lloyd Primary Care Provider Raghav Walton Unavailable [phone] REASON FOR VISIT 1 month f/u Encounters Encounter Location Date Provider Diagnosis [place] [address] [place] [address] 2024 Raghav Walotn Plan Of Treatment No Information Progress Notes * LEILA HASSAN LDOB:1990 (34 yo F)Acc No.[id number]:11/22/2024 Behavioral Health Patient: LEILA BARBOUR Provider: VANNESA Ornelas :1990 A ge:33 Y S ex:Female Date:11/22/2024 Address:[address] [place], [place] [id number] Pcp:Ilda Lloyd Subjective: * Chief Complaints: * 1 . 1 month f/u. * Medical History: Objective: * Vitals: Assessment: Plan: * Treatment: * Images: * Electronic signature of VANNESA Smith on 05/07/2025 at 08:23 AM EDT Sign off status: Pending * Provider: VANNESA Ornelas Date: 0 11/22/2024 Generated for Printi ng/Faxing/eTransmitting on: 0 05/07/2025 08:23 AM EDT
--- OUTSIDE RECORDS SUMMARY | 2025-05-04 09:45 | XMS_ITS | Encounter Summary ---
Author Organization [facility] Address [address] [place] [address] Care Team Providers Care Supervisor Framing Mill Name Role Phone Yolande Page TREASURY ACCOUNTANT Unavailable [phone] Pop Larsen DO Unavailable [phone] Unallocated, Noms Provider Primary Care Provi andres Reason for Visit * Reason Comments Left mamm/US results C/o nipple pain Encounter Details Date Type Department Care Team (Latest Contact Info) Description 05/04/2025 9:45 AM EDT Office Visit [facility] [address] [address] Shaji Francis DO 7[address] [facility] [address] [place] [address] Pseudoangiomatous stromal hyperplasia of breast (Primary Dx) Social History Tobacco Use Types Packs/Day Years Used Date Smoking Tobacco: Every Day Cigarettes 1.5 25 Smokeless Tobacco: Never Alcohol Use Standard Drinks/Week Comments Yes 4 [...] on file documented as of this encounter Progress Notes * Shaji Francis, - 05/04/2025 9:45 AM EDT Images from the original note were not included. Shazia Chou 1990 Shazia Chou is a 34 y.o. female presents with chief complaint of Left mamm/US results (C/o nipple pain ) HPI: HPI Shazia states in June she felt a lump in the left breast, [facility]. She states she can feel the mass and it hurts. She was told at the time towatch the mass and she was never seen by a breast surgeon. She was told to keep an eye on it and did not request any follow up imaging. She lives in [place] and wants to move her care closer to home. Currently she feels the mass has gotten bigger and more painful. She needs to wear here bra at alltimes including sleeping for comfort. She denies any nipple discharge but it feels wet and looks shiny. She says the nipple is pulling in and there a brown spot next to the nipple. SUBJECTIVE: MEDICATIONS: ALLERGIES Current Outpatient Medications Medication Instructions chlordiazePOXIDE (LIBRIUM) 25 mg, 3 times daily PRN cyclobenzaprine (Flexeril) 10 MG tablet TAKE 1 TABLET BY MOUTH UP TO 3 TIMES DAILY NEEDED DULoxetine (CYMBALTA) 90 mg, Nightly Ferrous Sulfate (IRON PO) Take by mouth ferrous sulfate 325 mg, Daily with breakfast gabapentin (Neurontin) 300 MG capsule 1 capsule, 3 times daily lamoTRIgine (LAMICTAL) 50 mg, 2 times daily Multiple Vitamins-Minerals (multivitamin with minerals) tablet 1 tablet, Daily NIFEdipine CC (ADALAT CC) 30 mg, Daily ondansetron (Zofran) 4 MG tablet Take by mouth pantoprazole (PROTONIX) 40 mg, Daily topiramate (TOPAMAX) 25 mg, 2 times daily traZODone (DESYREL) 100 mg, Nightly Vraylar 1.5 MG capsule 1 capsule, Daily ziprasidone (GEODON) 20 mg, 2 times daily with meals Allergies Allergen Reactions Abilify [Aripiprazole] Coconut (Cocos Nucifera) Buspirone Palpitations PAST MEDICAL HISTORY: SOCIAL HISTORY SURGICAL HISTORY: Past Medical History: Diagnosis Date Borderline personality disorder (HCC) Depression GERD (gastroesophageal reflux disease) Numbness 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 Left breast Pseudotumor cerebri Raynaud disease Ulnar neuropathy Weakness Social History Tobacco Use Smoking status: Every Day Current packs/day: 1.50 Average packs/day: 1.5 packs/day for 25.0 years (37.5 ttl pk-yrs) Types: Cigarettes Smokeless tobacco: Never Substance Use Topics Alcohol use: Yes Alcohol/week: 4.0 standard drinks of alcohol Types: 4 Standard drinks or equivalent per week Past Surgical History: Procedure Laterality Date SECTION, LOW TRANSVERSE EPIDURAL BLOCK INJECTION GASTRIC BYPASS PARTIAL HYSTERECTOMY 11/2022 FAMILY HISTORY Family History Problem Relation Name Age of Onset Pancreatic cancer Mother Diabetes Mother Hyperlipidemia Mother Hypertension Mother Stroke Mother Ovarian cancer Mother ALS Father Breast cancer Neg Hx Colon cancer Neg Hx REVIEW OF SYMPTOMS: Review of Systems Constitutional: [...] Day Physical Exam Exam conducted with a disposal man present. HENT: Head: Normocephalic. Cardiovascular: Rate and Rhythm: Normal rate and regular rhythm. Pulmonary: Effort: Pulmonary effort is normal. Breath sounds: Normal breath sounds. Chest: Comments: Bilateral supraclavicular, infraclavicular, bicipital and axillary lymph nodes were foundto be normal. Each breast was examined in the sitting and supine position, there was no evidence ofmasses, dimpling or discharge in the right breast. In the left breast at the 1:00 position near theanterior axillary line is a 2-3 cm firm [...] this visit: Pseudoangiomatous stromal hyperplasia of breast Shazia found a painful mass in the UOQ of the left breast last June. 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 She was told to just watch the area, but she feel it has gotten larger and is more painful. I will get a left breast mamm and US to see the status of the mass. After imagining is completed we will discuss surgical resection of the mass. She returns to review the imaging results The imaging was completed on 04/26/25 and shows Mamm Heterogeneous dense breast tissue. There are no dominant masses, typically malignant calcificationsor architectural distortion. Focal asymmetry 1:00 left breast with posterior depth with biopsy clipnoted US NO MAMMOGRAPHIC EVIDENCE OF MALIGNANCY. SURGICAL MANAGEMENT OF BIOPSY-PROVEN/KNOWN PASH NO RETROAREOLAR ABNORMALITY TO CORRESPOND TO REPORTED NIPPLE INVERSION. CLINICAL CORRELATION RECOMMENDED. She showed me a picture of the nipple inversion which occurred this morning while in the bathroom. The nipple appears normal now on exam and I explained the suspensory ligaments may cause the temporary inversion she is seeing. The US shows nothing of concern in the retro-areolar region. I discussed surgical resection of the PASH, I can't guarantee that it will resolve the breast pain or the periodic nipple inversion that she describes. I suggest we do a wide excision of the area. I explained that it will be done as an out patient under MAC anesthesia. In this procedure, we will not be removing or sampling the lymph nodes. I also explained that if the final pathology is positive for cancer, additional surgical procedures may be required. I explained the procedure of using a seed for localization of the breast mass. We discussed the removal of the seed and original biopsy clipand that I will replace the original clip with new marking clips or a VeraForm radiopaque suture. The patient is in agreement and arrangements have been made. documented in this encounter Plan of Treatment Upcoming Encounters Date Type Department Care Team (Late st Contact Info) Description 06/08/2025 10:15 AM EDT Office Visit [facility] 7[address] [facility] [address] [place] [id number] Shaji Francis DO [address] [facility] [address] [place] [address] documented as of this encounter Visit Diagnoses Diagnosis Pseudoangiomatous stromal hyperplasia of breast- Primary documented in this encounter Care Teams Supervisor Framing Mill Relationship Specialty Start Date End Date Unallocated, Noms Provider, MD [place] [address] PCP - General Family Medicine 04/13/25 Yolande Page NP [facility] [address] [place] [address] 09/21/24 Pop Larsen DO [facility] [address] [place] [address] Referring Physician Neurology 09/27/24 documented as of this encounter
[2025-05-07 08:23] VITALS: BP 120/83; PULSE 75; TEMP 36.7; O2SAT 100; BMI 30.5
--- OUTSIDE RECORDS SUMMARY | 2025-05-07 08:23 | XMS_ITS | Encounter Summary ---
Author Organization [facility] Address [address] [place] [address] Care Team Providers Care Grape Picker Name Role Phone Nilo Prado MD Unavailable Tevin Villafana DO Primary Care Provider [phone] Natacha Schroeder DO Unavailable Lisha Worthington CLEARING HAND.[employer] Unavailable Source Comments In the event this information is protected by the Federal Confidentiality of Alcohol and Drug AbusePatient Records regulations: The Federal rules restrict any use of the information to criminally investigate or prosecute any alcohol or drug abuse patient.[facility] Reason for Referral * Diagnostic Procedure Only (Routine) - Closed Specialty Diagnoses / Procedures Referred By Simona bailey Referred To Contact [facility] Diagnoses Abnormal mammogram of left breast Procedures US BIOPSY BREAST LEFT BX BREAST W/DEVICE 1ST LESION ULTRASOUND Mary Lou Allen MD [address] [address] Phone: tel: fax: [facility] [address] [place] [phone] Referral ID Status Reason Start Date Expiration Date V isits Requested Visits Authorized [id number] Closed Auto-Generate d Referral 07/05/2024 08/04/2025 1 1 Encounter Details Date Type Department Care Team (Late st Contact Info) Description 07/05/2024 Radiology Mammography [address] [address] Mary Lou Cote MD [address] [place] [address] Social History Tobacco Use Types Packs/Day Years Used Date Smoking Tobacco: Every Day Cigarettes 1 24 Smokeless Tobacco: Never Alcohol Use Standard Drinks/Week Comments Yes 0 (1 standard drink = 0.6 oz pur e alcohol) 13 days sober- 07/04/2024 [facility] Utilities Answer Date Recorded In the past [...] often do you attend chur ch or latter day services? Never 03/02/2024 Do you belong to any clubs o r organizations such as jain groups, unions, fraternal or athletic groups, or [...] Answer Date Recorded PHQ-2 score 2 07/01/2024 [facility] [place] of Occupat ional Health - Occupational Stress [...] is lower risk 6 02/27/2023 Data from: https://www.neighborhoodatlas.medicine.[facility].edu/. Last address used for calculation [address] 02/27/2023 Comments No Sex and Gender [...] AM EDT Office Visit [facility] [address] [id number] Molly Kramer APRN.RELATIONSHIP [employer]OC [address] [place] [address] LT BREAST PAIN WITH DISCOLORATION 05/16/2025 9:30 AM EDT Appointment Mammography [address] [id number] LT BREAST PAIN WITH DISCOLORATION documented as of this encounter Results * US BIOPSY BREAST LEFT (07/11/2024 9:15 AM EDT) Anatomical Region Laterality Modality Breast Left Other 07/11/2024 9:15 AM EDT Addenda Addendum by Provider, f [facility] [place] on 07/13/2024 4:01 PM EDT * * *Final Report* * * * * * SEE BOTTOM OF REPORT FOR ADDENDED TEXT * * * DATE OF EXAM: Jul 11 2024 9:15AM SSW [id number] - LINDA US BIOPSY BREAST LT / PROCEDURE REASON: Abnormal mammogram of left breast * * * * Physician Interpretation * * * * RESULT: [facility] [address] [place] [address] - - - - - - - [...] Alexandra Son M.D. Electronically signed on: 07/11/2024 Machine Packager: SERGIO Transcrialfonzo Date/Time: Jul 11 2024 8:52A Dictated by: ALEXANDRA SON MD This examination was interpreted and the report reviewed and electronically signed by: ALEXANDRA SON MD on Jul 11 2024 9:45AM EST This document has been addended by: ALEXANDRA SON MD on Jul 13 2024 3:56PM EST Mary Lou Cote MD [facility] Edited Result - Final documented in this encounter Visit Diagnoses Diagnosis Abnormal mammogram of left breast- Primary Abnormal mammogram of left breast documented in this encounter Care Teams Grape Picker Relationship Specialty [place] [address] [place] [address] PCP - General Family Medicine 05/30/24 02/13/25 Nilo Prado MD [address] [place] [address] Referring Gastroenterology 08/17/23 [place] [address] [place] [address] Lather Apprentice Family Medicine 08/22/24 12/15/24 Lisha Worthington APRN.CNP [address] [place] [address] Lather Apprentice Family Medicine 12/16/24 documented as of this encounter
--- OUTSIDE RECORDS SUMMARY | 2025-05-07 08:23 | XMS_ITS | Clinical Summary ---
Author Organization [facility] Address [address], [address] [place] [address] Care Team Providers Care Bellmaker Name Role Phone Jennie Durand DO Primary Care Provider [phone] Allergies Active Allergy Reactions Criticality Noted Date [...] Mon Post-op 04-24-21 222 y Completed at [facility]- will request 6 Mon Post-op 07-24-21 204 [...] esophagitis without hemorrhage 3 Hiatal hernia 07/24/2021 Family History Medical History Relation Name Comments [...] or with Pap) 2018 COVID-19 Vaccine ( season) 2024 04/29/2021, 04/08/2021 Annual Wellness Visit [...] - 6.0 % 08/12/2023 7:45 AM EST [employer] Estimated Avg Glucose 114 mg/dL 08/12/2023 7:45 AM EST [employer] Comment: The ADA and AACC recommend providing the estimated average glucose result to permit better patient understanding of their HBA1c result. BLOOD SPECIMEN / Unknown 08/12/2023 7:45 AM EST 08/12/2023 7:46 AM EST us Koki Chan WEB COORDINATOR - WEB PAGE DESIGNER CHEMISTRY ORDERABLES Final Result [facility] [address] [place] [address], [facility] [phone] [facility] [address] [place] [address], [facility] [phone] from Last 3 Months or Most Recently Relevant to Health Maintenance Insurance MEDICARE MEDICAID [place] [facility] MEDICARE on file Advance Directives * Full Code (Latest Code Status on File) Date Activated Date Inactivated Comments 01/31/2021 11:30 PM 02/01/2021 12:23 PM * Full Code Date Activated Date Inactivated Comments 01/07/2021 12:20 PM 01/08/2021 8:31 PM Care Teams Bellmaker Relationship Specialty Start Date End Date Jennie Durand DO [address] [place] [phone] PCP - General Family Medicine 11/19/22
--- OUTSIDE RECORDS SUMMARY | 2025-05-07 08:23 | XMS_ITS | Encounter Summary ---
Author Organization [facility] Address [address] [place] [address] Care Team Providers Care School Based Therapist Name Role Phone Nilo Prado MD Unavailable Elia Min DO Primary Care Provider [phone] Tevin Villafana DO Primary Care Provider [phone] Natacha Schroeder DO Unavailable Lisha Worthington DEPUTY SHERIFF BUILDING GUARD.FOLLOW UP REP Unavailable Source Comments In the event this information is protected by the Federal Confidentiality of Alcohol and Drug AbusePatient Records regulations: The Federal rules restrict any use of the information to criminally investigate or prosecute any alcohol or drug abuse patient.[facility] Encounter Details Date Type Department Care Team (Late st Contact Info) Description 05/20/2024 Patient [facility] HB-[address] [place] [address] Jackie Hunt RPh At your next appointment, choose [facility]. Social History Tobacco Use Types Packs/Day Years Used Date Smoking Tobacco: Every Day Cigarettes 1 24 Smokeless Tobacco: Never Alcohol Use Standard Drinks/Week Comments Yes 0 (1 standard drink = 0.6 oz pur e alcohol) [facility] Utilities Answer Date Recorded In the past 12 months has th e electric, gas, oil, or water [employer] threatened to shut off services in your [...] attend chur ch or episcopal services? Never 03/02/2024 Do you belong to [...] Answer Date Recorded PHQ-2 score 1 02/20/2023 [facility] - Occupational Stress Questionnaire Answer Date [...] place to sleep or slept in a care home (including now)? No 03/02/2024 Area Deprivation Index Answer Date David rded National Score (1-100), lower number is lower ri sk 78 02/27/2023 State Score (1-10), lower number is lower risk 6 02/27/2023 Data from: https://www.neighborhoodatlas.medicine.[facility].edu/. Last address used for calculation [address] [place] [address] 02/27/2023 Comments No Sex and Gender Information [...] AM EDT Office Visit Breast Center [address] [place] [address] Molly Kramer APRN.[facility] [address] [id number] LT BREAST PAIN WITH DISCOLORATION 05/16/2025 9:30 AM EDT Appointment Mammography [address] [place] [address] BREAST PAIN WITH DISCOLORATION documented as of this encounter Visit Diagnoses Not on filedocumented in this encounter Care Teams School Based Therapist Relationship Specialty Start Date End Date Elai Min DO [address] [place] [address] PCP - General Family Medicine 01/04/24 05/29/24 [place] [address] [place] [address] PCP - General Family Medicine 05/30/24 02/13/25 Nilo Prado MD [address] [place] [address] Referring Gastroenterology 08/17/23 [place] [address] [place] [address] Concrete Batch Plant Operator Family Medicine 08/22/24 12/15/24 Lisha Worthington APRN.[facility] [address] [place] [address] Concrete Batch Plant Operator Family Medicine 12/16/24 documented as of this encounter
--- OUTSIDE RECORDS SUMMARY | 2025-05-07 08:23 | XMS_ITS | Encounter Summary ---
Author Organization [facility] Address [facility] [place] [address] Care Team Providers Care Measurement Operator Name Role Phone Nilo Prado MD Unavailable Tevin Villafana DO Primary Care Provider [phone] Natacha Schroeder DO Unavailable Lisha Worthington MANAGER BACKGROUND.CREDIT REPRESENTATIVE Unavailable Source Comments In the event this information is protected by the Federal Confidentiality of Alcohol and Drug AbusePatient Records regulations: The Federal rules restrict any use of the information to criminally investigate or prosecute any alcohol or drug abuse patient.[facility] Encounter Details Date Type Department Care Team (Late st Contact Info) Description 07/14/2024 Patient Msg General Surgery [address] [id number] Sonido Aguirre MD [address] [place] [address] Appointment Request Social History Tobacco Use Types Packs/Day Years Used Date Smoking Tobacco: Every Day Cigarettes 1 24 Smokeless Tobacco: Never Alcohol Use Standard Drinks/Week Comments Yes 0 (1 standard drink = 0.6 oz pur e alcohol) 13 days sober- 07/04/2024 [facility] Utilities Answer Date Recorded In the [...] often do you attend chur ch or yarsani services? Never 03/02/2024 Do you belong to any clubs o r organizations such as anabaptism groups, unions, fraternal or athletic groups, or [...] Answer Date Recorded PHQ-2 score 2 07/01/2024 [facility] Occupat ional Health - [...] is lower risk 6 02/27/2023 Data from: https://www.neighborhoodatlas.medicine.[facility].edu/. Last address used for calculation [address] [place] [address] 02/27/2023 Comments No Sex and Gender Information [...] AM EDT Office Visit Breast Center [address] [phone] Molly Kramer APRN.CREDIT REPRESENTATIVE [address] [place] [address] LT BREAST PAIN WITH DISCOLORATION 05/16/2025 9:30 AM EDT Appointment Mammography [address] [address] BREAST PAIN WITH DISCOLORATION documented as of this encounter Visit Diagnoses Not on filedocumented in this encounter Care Teams Measurement Operator Relationship Specialty Start [place] [address] [place] [address] PCP - General Family Medicine 05/30/24 02/13/25 Nilo Prado MD [address] [place] [address] Referring Gastroenterology 08/17/23 [place] [address] [place] [address] [facility] 08/22/24 12/15/24 Lisha Worthington, CEDRIC.CREDIT REPRESENTATIVE [address] [place] [address] [facility] 12/16/24 documented as of this encounter
--- OUTSIDE RECORDS SUMMARY | 2025-05-07 08:23 | XMS_ITS | Encounter Summary ---
Author Organization [facility] Address [address] [place] [address] Care Team Providers Care Graduate Teacher Education Name Role Phone Nilo Prado MD Unavailable Elia Min DO Primary Care Provider [phone] Tevin Villafana DO Primary Care Provider [phone] Natacha Schroeder DO Unavailable Lisha Worthington BRASS MOLDER.STONE CARVER Unavailable Source Comments In the event this information is protected by the Federal Confidentiality of Alcohol and Drug AbusePatient Records regulations: The Federal rules restrict any use of the information to criminally investigate or prosecute any alcohol or drug abuse patient.[facility] Encounter Details Date Type Department Care Team (Late st Contact Info) Description 05/12/2024 Patient Msg Family Medicine [address] [place] [address] Provider, [facility] Outstanding Orders Social History Tobacco Use Types Packs/Day Years Used Date Smoking Tobacco: Every Day Cigarettes 1 24 Smokeless Tobacco: Never Alcohol Use Standard Drinks/Week Comments Yes 0 (1 standard drink = 0.6 oz pur e alcohol) [facility] Utilities Answer Date Recorded In the past 12 months has [employer], gas, oil, or water company threatened to [...] any clubs o r organizations such as religion groups, unions, fraternal or athletic groups, or [...] Answer Date Recorded PHQ-2 score 1 02/20/2023 [facility] - Occupational Stress Questionnaire Answer Date [...] slept in a jail (including now)? No 03/02/2024 Area Deprivation Index Answer Date David rded National Score (1-100), lower number is lower ri sk 78 02/27/2023 State Score (1-10), lower number is lower risk 6 02/27/2023 Data from: https://www.neighborhoodatlas.medicine.[facility].edu/. Last address used for calculation [address] [facility] 02/27/2023 Comments No Sex and Gender [...] AM EDT Office Visit Breast Center [address] [place] [address] Molly Kramer APRN.STONE CARVER [address] [place] [address] LT BREAST PAIN WITH DISCOLORATION 05/16/2025 9:30 AM EDT Appointment Mammography [address] [place] [address] LT BREAST PAIN WITH DISCOLORATION documented as of this encounter Visit Diagnoses Not on filedocumented in this encounter Care Teams Graduate Teacher Education Relationship Specialty Start Date End Date Elia Min DO [address] [place] [address] PCP - General Family Medicine 01/04/24 05/29/24 [place] [address] [place] [address] PCP - General Family Medicine 05/30/24 02/13/25 Nilo Prado MD [address] [place] [address] Referring Gastroenterology 08/17/23 [place] [address] [place] [address] [facility] 08/22/24 12/15/24 Lisha Worthington APRN.IRENE [address] [place] [address] [facility] 12/16/24 documented as of this encounter
--- OUTSIDE RECORDS SUMMARY | 2025-05-07 08:24 | XMS_ITS | Encounter Summary ---
Author Organization [facility] Address [address] [place] [address] Care Team Providers Care Director Dance Name Role Phone Nilo Prado MD Unavailable Elia Min DO Primary Care Provider [phone] Tevin Villafana DO Primary Care Provider Natacha Schroeder DO Unavailable Lisha Worthington APRN.FLOATING OPERATOR Unavailable Source Comments In the event this information is protected by the Federal Confidentiality of Alcohol and Drug AbusePatient Records regulations: The Federal rules restrict any use of the information to criminally investigate or prosecute any alcohol or drug abuse patient.[facility] Encounter Details Date Type Department Care Team (Late st Contact Info) Description 01/05/2024 Get Medical Advice Family Medicine [address] [place] [address] Elia Min DO [address] [place] [address] Medicine Social History Tobacco Use Types Packs/Day [...] often do you attend chur ch or jewish services? Never 07/03/2022 Do you belong to [...] score 1 02/20/2023 [facility] - Occupational Stress Questionnaire Answer Date [...] slept in a halfway (including now)? No 07/03/2022 Area Deprivation Index Answer Date David rded National Score (1-100), lower number is lower ri sk 78 02/27/2023 State Score (1-10), lower number is lower risk 6 02/27/2023 Data from: https://www.neighborhoodatlas.medicine.[facility].edu/. Last address used for calculation [address] [place] [address] 02/27/2023 Comments Unknown Sex and Gender Information [...] AM EDT Office Visit Breast Center [address] [place] [address] Molly Kramer APRN.FLOATING OPERATOR [address] [place] [address] LT BREAST PAIN WITH DISCOLORATION 05/16/2025 9:30 AM EDT Appointment Mammography [address] [place] [address] BREAST PAIN WITH DISCOLORATION documented as of this encounter Visit Diagnoses Not on filedocumented in this encounter Care Teams Director Dance Relationship Specialty Start Date End Date Elia Min DO [address] [place] [address] PCP - General Family Medicine 01/04/24 05/29/24 [place] [address] [place] [address] PCP - General Family Medicine 05/30/24 02/13/25 Nilo Prado MD [address] [place] [address] Referring Gastroenterology 08/17/23 [place] [address] [place] [address] Car Icer Family Medicine 08/22/24 12/15/24 Lisha Worthington APRN.IRENE [address] [place] [address] Car Icer Family Medicine 12/16/24 documented as of this encounter
--- OUTSIDE RECORDS SUMMARY | 2025-05-07 08:24 | XMS_ITS | Encounter Summary ---
Author Organization [facility] Address [facility] [place] [address] Care Team Providers Care Agile Coach Name Role Phone Nilo Prado MD Unavailable Elia Min DO Primary Care Provider [phone] Tevin Villafana DO Primary Care Provider [phone] Natacha Schroeder DO Unavailable Lisha Worthington CHRISTMAS TREE FARM MANAGER.PARTY PLAN SALESPERSON Unavailable Source Comments In the event this information is protected by the Federal Confidentiality of Alcohol and Drug AbusePatient Records regulations: The Federal rules restrict any use of the information to criminally investigate or prosecute any alcohol or drug abuse patient.[facility] Encounter Details Date Type Department Care Team (Late st Contact Info) Description 10/14/2023 Patient Msg Genetic Healthcare [address] [place], [place] [id number] Provider, [facility] Genetics Social History Tobacco Use [...] How often do you attend chur or rastafari services? Never 07/03/2022 Do you belong to [...] Answer Date Recorded PHQ-2 score 1 02/20/2023 [facility] - Occupational Stress Questionnaire Answer Date [...] is lower risk 6 02/27/2023 Data from: https://www.neighborhoodatlas.medicine.[facility]/. Last address used for calculation [address] [place] [address] 02/27/2023 Comments Unknown Sex and Gender Information [...] AM EDT Office Visit Breast Center [address] [place] [address] Molly Kramer APRN.PARTY PLAN SALESPERSON [address] [phone] LT BREAST PAIN WITH DISCOLORATION 05/16/2025 9:30 AM EDT Appointment Mammography [address] [place] [address] LT BREAST PAIN WITH DISCOLORATION documented as of this encounter Visit Diagnoses Not on filedocumented in this encounter Care Teams Agile Coach Relationship Specialty Start Date End Date Elia Min DO [address] [place] [address] PCP - General Family Medicine 01/04/24 05/29/24 [place] [address] [place] [address] PCP - General Family Medicine 05/30/24 02/13/25 Nilo Prado MD [address] [place] [address] Referring Gastroenterology 08/17/23 [place] [address] [place] [address] Diamond Die Driller Family Medicine 08/22/24 12/15/24 Lisha Worthington APRN.IRENE [address] [place] [address] Diamond [facility] Driller Family Medicine 12/16/24 documented as of this encounter
--- OUTSIDE RECORDS SUMMARY | 2025-05-07 08:24 | XMS_ITS | Encounter Summary ---
Author Organization [facility] Address [address] [place] [address] Care Team Providers Care Coroner/Medical Examiner Name Role Phone Nilo Prado MD Unavailable Elia Min DO Primary Care Provider [phone] Tevin Villafana DO Primary Care Provider Natacha Schroeder DO Unavailable Lisha Worthington MILLER SUPERVISOR.WIND UP OPERATOR Unavailable Source Comments In the event this information is protected by the Federal Confidentiality of Alcohol and Drug AbusePatient Records regulations: The Federal rules restrict any use of the information to criminally investigate or prosecute any alcohol or drug abuse patient.[facility] Encounter Details Date Type Department Care Team (Late st Contact Info) Description 03/10/2024 Patient Msg Colorectal Surgery [address] [place], [place] [phone] Provider, Ashwin Your Virtual Visit with Dr Aguirre has been scheduled for 03/14/24 at 4:00PM Social History Tobacco Use Types Packs/Day Years Used Date Smoking Tobacco: Every Day Cigarettes 1 24 Smokeless Tobacco: Never Alcohol Use Standard Drinks/Week Comments Yes 0 (1 standard drink = 0.6 oz pur e alcohol) [facility] Utilities Answer Date Recorded In the [...] often do you attend chur ch or temple services? Never 03/02/2024 Do you belong to [...] Answer Date Recorded PHQ-2 score 1 02/20/2023 [facility] Occupat ional Health - [...] place to sleep or slept in a fci (including now)? No 03/02/2024 Area Deprivation Index Answer Date David rded National Score (1-100), lower number is lower ri sk 78 02/27/2023 State Score (1-10), lower number is lower risk 6 02/27/2023 Data from: https://www.neighborhoodatlas.medicine.[facility].edu/. Last address used for calculation [address] [facility] 02/27/2023 Comments No Sex and Gender [...] AM EDT Office Visit Breast Center [address] [phone] Molly Kramer APRN.WIND UP OPERATOR [address] [place] [address] LT BREAST PAIN WITH DISCOLORATION 05/16/2025 9:30 AM EDT Appointment Mammography [address] [address] LT BREAST PAIN WITH DISCOLORATION documented as of this encounter Visit Diagnoses Not on filedocumented in this encounter Care Teams Coroner/Medical Examiner Relationship Specialty Start Date End Date Elia Min DO [address] [place] [address] PCP - General Family Medicine 01/04/24 05/29/24 [place] [address] [place] [address] PCP - General Family Medicine 05/30/24 02/13/25 Nilo Prado MD [address] [place] [address] Referring Gastroenterology 08/17/23 [place] [address] [place] [address] Day Care Attendant Family Medicine 08/22/24 12/15/24 Lisha Worthington APRN.CNP [address] [place] [address] Day Care Attendant Family Medicine 12/16/24 documented as of this encounter
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
--- OUTSIDE RECORDS SUMMARY | 2025-05-07 08:25 | XMS_ITS | Encounter Summary ---
Author Organization [facility] Address [address] [place] [address] Care Team Providers Care Sleeve Setter Name Role Phone Nilo Prado MD Unavailable Tevin Villafana DO Primary Care Provider [phone] Natacha Schroeder DO Unavailable Lisha Worthington PAYMASTER OF PURSES.SENIOR UI WEB DEVELOPER Unavailable Source Comments In the event this information is protected by the Federal Confidentiality of Alcohol and Drug AbusePatient Records regulations: The Federal rules restrict any use of the information to criminally investigate or prosecute any alcohol or drug abuse patient.[facility] Encounter Details Date Type Department Care Team (Late st Contact Info) Description 10/17/2024 Patient Msg Navigate Clinic [facility] [address] [place] [address] Provider, Ccf Scheduling Needed Social History Tobacco Use Types Packs/Day Years Used Date Smoking Tobacco: Every Day Cigarettes 1 24 Smokeless Tobacco: Never Alcohol Use Standard Drinks/Week Comments Yes 0 (1 standard drink = 0.6 oz pur e alcohol) 13 days sober- 07/04/2024 [facility] Utilities Answer Date Recorded In the past 12 months has [employer], gas, oil, or water company threatened to [...] often do you attend chur ch or bahai services? Never 03/02/2024 Do you belong to any clubs o r organizations such as sikh groups, unions, fraternal or athletic groups, or [...] Answer Date Recorded PHQ-2 score 2 07/01/2024 [facility] - Occupational Stress Questionnaire Answer Date [...] risk 6 02/27/2023 Data from: https://www.neighborhoodatlas.medicine.[facility].edu/. Last address used for calculation [address] [...] AM EDT Office Visit Breast Center [address] [place] [address] Molly Kramer, CEDRIC.SENIOR UI WEB DEVELOPER [address] [place] [address] LT BREAST PAIN WITH DISCOLORATION 05/16/2025 9:30 AM EDT Appointment Mammography [address] [id number] LT BREAST PAIN WITH DISCOLORATION documented as of this encounter Visit Diagnoses Not on filedocumented in this encounter Care Teams Sleeve Setter Relationship Specialty [place] [address] [place] [address] PCP - General Family Medicine 05/30/24 02/13/25 Nilo Prado MD [address] [place] [address] Referring Gastroenterology 08/17/23 [place] [address] [place] [address] Garment Folder Family Medicine 08/22/24 12/15/24 Lisha Worthington APRN.CNP [address] [place] [address] Garment Folder Family Medicine 12/16/24 documented as of this encounter
--- OUTSIDE RECORDS SUMMARY | 2025-05-07 08:25 | XMS_ITS | Encounter Summary ---
Author Organization [facility] Address [address] [place] [address] Care Team Providers Care Refrigeration Engineering Teacher Name Role Phone Nilo Prado MD Unavailable Elia Min DO Primary Care Provider [phone] Tevin Villafana DO Primary Care Provider [phone] Natacha Schroeder DO Unavailable Lisha Worthington CHISEL TRIMMER.TRAY SERVICE WORKER Unavailable Source Comments In the event this information is protected by the Federal Confidentiality of Alcohol and Drug AbusePatient Records regulations: The Federal rules restrict any use of the information to criminally investigate or prosecute any alcohol or drug abuse patient.[facility] Encounter Details Date Type Department Care Team (Late st Contact Info) Description 01/06/2023 Get Medical Advice Neurology [address] [place], [place] [id number] Margo Manzano MD [address] [place] [address] Iih Social History Tobacco Use [...] often do you attend chur ch or orthodox services? Never 07/03/2022 Do you belong to any clubs o r organizations such as faith groups, unions, fraternal or athletic groups, or [...] care, and heating? Not very hard 07/03/2022 [facility] - Occupational Stress [...] slept in a fpc (including now)? No 07/03/2022 Area Deprivation Index Answer Date David rded National Score (1-100), lower number is lower ri sk 73 09/29/2022 State Score (1-10), lower number is lower risk N ot on file 09/29/2022 Data from: https://www.neighborhoodatlas.medicine.[facility].edu/. Last address used for calculation [address] [facility] [address] [facility] 09/29/2022 Comments Unknown Sex and Gender Information Value Date Recorded Sex Assigned at Female 02/06/2022 6:05 PM EDT Legal Sex Female 10:01 AM EST Gender Identity Female 01/13/2022 11:52 AM EDT Sexual Orientation Straight 02/06/2022 6: 05 PM EDT documented as of this encounter Miscellaneous Notes * Telephone Encounter - Consuelo Fregoso RN - 01/06/2023 12:57 PM EDT [employer] message forwarded to provider. documented in this encounter Plan of Treatment Upcoming Encounters Date Type Department Care Team (Latest Contact Info) Description 05/16/2025 9:00 AM EDT Office Visit [facility] [address] [place] [address] Molly Kramer APRN.[facility] [address] [place], [place] [id number] LT BREAST PAIN WITH DISCOLORATION 05/16/2025 9:30 AM EDT Appointment Mammography [address] [address] LT BREAST PAIN WITH DISCOLORATION documented as of this encounter Visit Diagnoses Not on filedocumented in this encounter Care Teams Refrigeration Engineering Teacher Relationship Specialty Start Date End Date Elia Min DO [address] [place] [address] PCP - General Family Medicine 01/04/24 05/29/24 [place] [address] [place] [address] PCP - General Family Medicine 05/30/24 02/13/25 Nilo Prado MD [address] [place] [address] Referring Gastroenterology 08/17/23 [place] [address] [place] [address] Operating Engineer Family Medicine 08/22/24 12/15/24 iLsha Worthington APRN.CNP [address] [place] [address] Operating Engineer Family Medicine 12/16/24 documented as of this encounter
--- OUTSIDE RECORDS SUMMARY | 2025-05-07 08:25 | XMS_ITS | Clinical Summary ---
Author Organization [facility] Address [address] [facility] [place] [address] Care Team Providers Care Clerical And Administrative Workers Name Role Phone Unavailable Primary Care Provider Unavailabl e Source Comments The following information is NOT included in Care Everywhere downloads:Psychiatric notes, ECG results, Cardiac Rehab notes, Pulmonary Function notes, data from [employer] (includes but not limited toPregnancy data,audiograms, eye exams, pre-surgical evaluation notes, well-child exam data).[facility] Allergies Active Allergy Reactions Criticality Noted Date Comments No Known Drug Allergies 11/12/2000 Pencils [Other] 11/12/2000 rash Soap 11/12/2000 rash Medications trazodone 50 MG tablet Take 50 mg by mouth at bedtime. Active paroxetine (PAXIL) 30 MG tablet Take 30 mg by mouth daily. Active ClonazePAM (KLONOPIN WAFER) 0.25 MG TBDP Take 0.25 mg by mouth 2 times daily. Active triamcinolone 0.1 % ointment Apply topically 2 times daily. Apply thin layer red, rough, itchy areas for 2 weeks. Avoid face, armpit, groin 90 g 0 6 Active Active Problems Problem Noted Date Diagnosed Date Acute pharyngitis 12/01/2002 Streptococcal sore throat 12/01/2002 Acute suppurative otitis med ia without spontaneous rupture of ear drum 06/13/2002 Lumbago 06/13/2002 Abdominal pain 06/13/2002 Educational circumstance 06/13/2002 Sprain of ankle 12/06/2001 Immunizations Immunization Administration Dates Next Due Hep B (peds/adol, 3-dose) (CVX=08) 11/12/2000 MMR, Krffpdl-Cjaup-Bzqzyqm (CVX=03) 11/12/2000 Family History Medical History Relation Name Comments Good health Brother Good health Father Hypertension Maternal Grandfather Seizure Disorder Maternal Grandfather ?ET IOLOGY Hypertension Maternal Grandmother Hypertension Mother Lung Disease Mother CHRONIC BRONCHI TIS Diabetes Mellitus Paternal Grandfather NI DDM. Takes oral medication Hypertension Paternal Grandfather Skin Condition Sister Eczema Relation Name Status Comments Brother Father Maternal Grandfather Maternal Grandmother Mother Paternal Grandfather Sister Social History Tobacco Use Types Packs/Day Years Used Date Smoking Tobacco: Smoker, Current Status Unknown Alcohol Use Standard Drinks/Week Comments Not Asked 0 (1 standard drink = 0.6 oz pur e alcohol) Sexually Active [employer] Partners Comments Never Substance Use Types Use/Week Comments Not Asked Comments No Sex and Gender Information Value Date Recorded Sex Assigned at Not on file Legal Sex Female 9:12 AM EST Gender Identity Not on file Sexual Orientation Not on file Last Filed Vital Signs Vital Sign Reading Time Taken Comments Blood Pressure 122/75 11/01/2015 4:44 PM EST Pulse 97 11/01/2015 4:44 PM EST Temperature 37.4 C (99.4 F) 11/01/2015 4:44 PM EST Respiratory Rate 20 05/17/2013 5:14 PM EDT Oxygen Saturation 98% 11/01/2015 4:44 PM EST Inhaled Oxygen Concentration - - Weight 67.9 kg (149 lb 12.8 oz) 12/01/2002 9:45 AM EST Height 170.2 cm (5' 7 ) 11/01/2015 4:44 PM EST Body Mass Index - - Plan of Treatment Health Maintenance Due Date Last Done Comments Mammography (shared decision-making, age 35-39) 1988 Hepatitis B (HBV) Vaccine (2 of 3 - 3-dose series) 12/10/2000 11/12/2000 HIV Test 12/18/2003 Hepatitis C Antibody 2006 Tdap Booster 2006 Hepatitis A (HAV) Vaccine (optional start 19+ years) 12/18/2007 Pap Smear 2009 HPV Vaccine (optional start 27-45 years) 12/18/2015 COVID-19 Vaccine (2023-2 5 season) 2024 Influenza Vaccine (#1) 2025 Shingles (RZV) Vaccine (1 of 2) 2038 Mammography Discontinued Pneumococcal Vaccine(s) Aged Out No l onger eligible based on patient's age to complete this topic Insurance [address] [id number]
--- OUTSIDE RECORDS SUMMARY | 2025-05-07 08:25 | XMS_ITS | Encounter Summary ---
Author Organization [facility] Address [address] [place] [id number] Care Team Providers Care Health Care Facility Administrator Name Role Phone Nilo Prado MD Unavailable Elia Min DO Primary Care Provider [phone] Tevin Villafana DO Primary Care Provider Natacha Schroeder DO Unavailable Lisha Worthington PATIENT SAFETY OFFICER.PARKING LOT MANAGER Unavailable Source Comments In the event this information is protected by the Federal Confidentiality of Alcohol and Drug AbusePatient Records regulations: The Federal rules restrict any use of the information to criminally investigate or prosecute any alcohol or drug abuse patient.[facility] Encounter Details Date Type Department Care Team (Late st Contact Info) Description 01/27/2023 [place] [address] Provider, Ccf Questionnaire Submission Social History Tobacco [...] attend chur ch or zoroastrian services? Never 07/03/2022 Do you belong to [...] care, and heating? Not very hard 07/03/2022 [facility] of Occupat ional Health - Occupational Stress [...] on file 09/29/2022 Data from: https://www.neighborhoodatlas.medicine.[facility].edu/. Last address used for calculation [address] [place] [address] 09/29/2022 Comments Unknown Sex and Gender Information [...] AM EDT Office Visit Breast Center [address] [place] [address] Molly Kramer APRN.PARKING LOT MANAGER [address] [place] [address] [phone] LT BREAST PAIN WITH DISCOLORATION 05/16/2025 9:30 AM EDT Appointment Mammography [address] [place] [id number] LT BREAST PAIN WITH DISCOLORATION documented as of this encounter Visit Diagnoses Not on filedocumented in this encounter Care Teams Health Care Facility Administrator Relationship Specialty Start Date End Date Elia Min DO [address] [place] [address] PCP - General Family Medicine 01/04/24 05/29/24 [place] [address] [place] [address] PCP - General Family Medicine 05/30/24 02/13/25 Nilo Prado MD [address] [place] [phone] Referring Gastroenterology 08/17/23 [place] [address] [place] [address] Manual Plate Filler Family Medicine 08/22/24 12/15/24 Lisha Worthington, PATIENT SAFETY OFFICER.PARKING LOT MANAGER [address] [place] [address] Manual Plate Filler Family Medicine 12/16/24 documented as of this encounter
--- OUTSIDE RECORDS SUMMARY | 2025-05-07 08:26 | XMS_ITS | Clinical Summary ---
Author Organization [facility] Address [address] [place] [address] Care Team Providers Care Travel Journalist Name Role Phone Nilo Prado MD Unavailable Lisha Worthington ELECTRO MECHANICAL TECHNICIAN.LSW Unavailable Allergies Active Allergy Reactions Criticality Noted Date Comments Aripiprazole Mental Status Change ,Other: See Comments,Unknown 08/19/2022 Bupropion Unknown 07/16/2021 Coconut Swelling Low 11/20/2022 Medications trwarclmrifu-ktk-s bria-FA-vit K (BARIATRIC MULTIVITAMINS) 45 mg iron- [...] by mouth two times a day. 03/08/20 Active ondansetron orally disintegrating (ZOFRAN ODT) 4 mg disintegrating tablet Take 1 tablet by mouth every 8 hours as needed for nausea/vomiting. 30 tablet 07/25/20 Active lamoTRIgine (LAMICTAL) 25 mg tabletIndications: Bipolar [...] Care Team Description 02/11/2025 Refill Family Medicine [address] [place] [address] Tevin Villafana DO Refill Request [...] pur e alcohol) 13 days sober- 07/04/2024 [facility] Utilities Answer Date Recorded In the past 12 months has [employer], gas, oil, or water [employer] threatened to shut off services in your home? No 03/02/2024 Social Connection and Isolation Panel Answer Date Recorded In a typical week, how many times do you talk on the phone with family, friends, or neighbors? More than three times a week 03/02/2024 How often do you get togethe r with friends or relatives? Never 03/02/2024 How often do you attend chur or islam services? Never 03/02/2024 Do you belong to any clubs o r organizations such as nondenominational groups, unions, fraternal or athletic groups, or [...] Answer Date Recorded PHQ-2 score 2 07/01/2024 [facility] of Occupat ional Health - Occupational [...] place to sleep or slept in a senior care (including now)? No 03/02/2024 Area Deprivation Index Answer Date David rded National Score (1-100), lower number is lower ri sk 78 02/27/2023 State Score (1-10), lower number is lower risk 6 02/27/2023 Data from: https://www.neighborhoodatlas.medicine.[facility]/. Last address used for calculation [address] [facility] 02/27/2023 Comments No Sex and Gender [...] AM EDT Office Visit Breast Center [address] [place] [address] Molly Kramer, CEDRIC.LSW [address] [place], [place] [phone] LT BREAST PAIN WITH DISCOLORATION 05/16/2025 9:30 AM EDT Appointment Mammography [address] [place] [address] LT BREAST PAIN WITH DISCOLORATION Health Maintenance [...] Completed 02/25/2024 Medical Devices Implanted Type Area Any Commodity Sales Deliverer Device Identifier Shelf Expiration Date Model / Serial / Lot Breast Us Core Bx Clip Implanted:Qty: 1 on 07/11/2024 by Michelle Son MD at [facility] Left: Breast BARD PERIPHERAL VASCULAR 12/09/2026 / / [id number] Description:Ribbon clip Procedures Procedure Name Priority Date/Time [...] (Ag/Ab) Nonreactive Nonreactive 02/25/2024 5:32 PM EDT [facility] HIV-1/2 AB (Confirmatory) 02/25/2024 5:32 PM EDT [facility] Comment:Test not indicated. HIV Interpretation 02/25/2024 5:32 PM EDT [facility] Comment: No evidence of HIV-1 or HIV-2 infection. Should recent infection be suspected, repeat testing may be considered 2-3 weeks after this draw. Carver Rev. Code 3701.243(E): This information has been [...] LABORATORY Final Resu lt Performing Organization Address [facility]/ZIP Co de Phone Number [facility] [address] [place] [address], * HEPATITIS C ANTIBODY IA WITH CONFIRMATION (02/25/2024 7:51 AM EDT) Hep C Antibody IA Negative Negative 02/25/2024 6:42 PM EDT [facility] Comment:The result suggests no evidence of active infection with Hepatitis C virus. Should recent infection be suspected, repeat testing may be considered 4-6 weeks after this draw. Blood BLOOD SPECIMEN / Unknown Venipuncture / Unknown 02/25/2024 7:51 AM EDT 02/25/2024 7:51 AM EDT Elia Min DO LABORATORY Final Resu lt Performing Organization Address [facility] Co de Phone Number [facility] [address] [place], [place] [id number], from Last 3 Months or Most Recently Relevant to Health Maintenance Insurance MEDICAID [place] [employer] MEDICARE ADVANTAGE HMO Care Teams Travel Journalist Relationship Specialty Start Date End Date Nilo Prado MD [address] [place] [address] Referring Gastroenterology 08/17/23 Lisha Worthington APRN.CNP [address] [place] [address] Franchise Broker Family Medicine 12/16/24
--- OUTSIDE RECORDS SUMMARY | 2025-05-07 08:26 | XMS_ITS | Encounter Summary ---
Author Organization [facility] Address [address] [place] [address] Phone Care Team Providers Care Digital Marketing Analyst Name Role Phone Generic Provider, No Assigned Pcp MD Primary Car e Provider Unavailable Encounter Details Date Type Department Care Team (Late st Contact Info) Description 02/09/2025 Scanned Document [facility] [address] [place] [id number] Scanning, Generic Provider Social History Tobacco Use [...] filedocumented in this encounter Care Teams Digital Marketing Analyst Relationship Specialty Start Date End Date Generic Provider, No Assigned [facility] [place] [address] PCP - General Telephone Sales Representative 11/03/24 documented as of this encounter
--- OUTSIDE RECORDS SUMMARY | 2025-05-07 08:26 | XMS_ITS | CCD ---
Author Organization [facility] ion [facility] Care Team Providers Care Group Work Program Aide Name Role Phone Jennie Durand Primary Care Provider [phone] LINDY COTE Attending Unavailable PROVIDER, UNKNOWN Admitting Unavailable PATIENT, SELF Referring Unavailable Jennie Durand Primary Care Provider Jennie Durand DO Primary Care Provider [phone] JENNIE DURAND Primary Care Unavailable Jennie Durand DO Primary Care Provider Unavailable Primary Care Provider UnavailAimee Renee Primary Care Physician Unavailable Primary Care Provider UnavailDO Jennie Pichardo Primary Care Provider [phone] MD Sangeetha Peña Admit Provider Lindy Hdz Other Provider Unavailable DO Krystal Romo Other Provider MD Carolyne Schilling Other Provider [phone] DO Jamie Larsen Other Provider DIANNE Niño-CHRIS Kevin Other Provider DO Kenrick Lee Other Provider CEDRIC Zaragoza Other Provider [phone] ASTON Smith Other Provider MD Lizzeth Malave Attending Provider [phone] DO Jamie Larsen Referring Provider DIANNE Niño-CHRIS Kevin Attending Provider [phone] Charisse Nakia Brock Primary Care Physician [phone] DR CAROLYNE RALPH Consulting Unavailable MISC, DR [...] Care Physician Jennie Durand Primary Care Physician [phone] Durand, DO Jennie D Primary Care Provider Tupa, DO Jose Maria Blue Emergency Provider [phone] Ania Javed Unavailable Eve, Imad Unavailable Durand, DO Jennie D Primary Care Provider Turamses, DO Jose Maria Blue Emergency Provider [phone] MD Yoli Norris Emergency Provider GANESH CORDERO Referring Unavailable DURAND, JENNIE D Primary Care Unavailable MARII JOSUE Referring Unavailable DURAND, JENNIE D Primary Care Unavailable MAN, SHUMEMarina Attending Unavailable EILEEN ALVAREZ Attending Unavailable LEONELA AGUIRRE Referring Unavailable Durand DO, Jennie D Primary Care Provider [phone] GAMALIEL VICKERS Referring Unavailable DURAND, JENNIE D Primary Care Unavailable JOSUEMARII Referring Unavailable DURAND, JENNIE D Primary Care Unavailable MARII JOSUE Referring Unavailable DURAND, JENNIE D Primary Care Unavailable Durand, DO Jennie D Primary Care Provider [phone] MD Marii Christiansen Emergency Provider Turamses, DO [...] Unavailabl e TIFFANIE MARADIAGA Primary Care Physician [phone] [facility] DO Natacha Unavailable ALEAH HOAWRD Referring Unavailable ESHA, KURT A Primary Care [...] Unavailbehzad e Rosinae Sailaja STEELE Emergency Provider [phone] Jacob Baker MD Attending Provider MARII JOSUE Referring Unavailable JENNIE DURAND Primary Care Unavailable NON STAFF Primary Care Provider UnavailCorby Godwin DO M Attending Provider ALEAH HOWARD Attending Unavailable Ander AUTOMOTIVE INTERNET SALES CONSULTANT.ENERGY OPERATIONS VICE PRESIDENT, [facility] Unavailable AMRII RICK Admitting Unavailable MARII RICK Attending Unavailable Bryan Avila Attending Unavailable MOLLY GREGORIO Admitting Unavailable MOLLY GREGORIO Referring Unavailable MOLLY GREGORIO Attending Unavailable Babar Mayers Referring Unavailable Babar Mayers Attending Unavailable Babar Mayers Admitting Unavailable Jennie Durand Admitting Unavailable Durand, Jennie D Referring Unavailable Durand, Jennie D Attending Unavailable Otcortes, Kayleymobeatriz Consulting Unavailable MOLLY GREGORIO Admitting Unavailable MOLLY GREGORIO Referring Unavailable MOLLY GREGORIO Attending Unavailable MD Fernandez Daniels Consulting Unavailable Othmmegan, Fernandez Consulting Unavailable Auburn, Jak W Referring Unavailable Auburn, Jak W Attending Unavailable Auburn, Jak W Admitting Unavailable Babar Mayers Attending Unavailable Babar Mayers Referring Unavailable Durand, Jennie Ngo Attending Unavailable Durand, Jennie D Admitting Unavailable [...] D Attending Unavailable BERNARD, MOLLY Referring Unavailable Auburn, Jak W Attending Unavailable Esha OVER SHORT AND DAMAGE CLERK, Kurt Lehman Unavailable Corby Larsen DO Unavailable [phone] Unallocated , [place] Provider Primary Care Provi andres Lindy Keen APRN Primary Care Provider Efrem Victor MD Attending Provider [phone] Aaliyah Zamudio DO Attending Provider Jennie Durand DO Primary Care Provider [phone] NON STAFF Primary Care Unavailable Corby Larsen Admitting Unavailab Corby Apodaca Attending Unavailab Jennie Soria Primary Care Unavailable Aaliyah Zamudio Admitting Unavailable Aaliyah Zamudio Attending Unavailable Lindy Keen Primary Care Unavailable Efrem Victor Admitting Unavailab le Efrem Victor Attending Unavailab le NON STAFF Primary Care Unavailable Sailaja Anderson N Admitting Unavailable Sailaja Anderson N Attending Unavailable NON STAFF Primary Care Unavailable Jacob Baker Admitting Unavailable Jacob Baker Attending Unavailable Sami Brewster Attending Unavailable MOLLY GREGORIO Referring Unavailable Auburn, Jak W Admitting Unavailable Auburn, Jak W Attending Unavailable Auburn, Jak W Referring Unavailable KLMARII DOWD R Admitting Unavailable KLMARII DOWD R Attending Unavailable Jennie Durand Referring Unavailable Babar Mayers Admitting Unavailable Babar Mayers Attending Unavailable Auburn, Jak Mesa Attending Unavailable NONE, XXXX Referring Unavailable Babar Mayers Referring Unavailable Babra Mayers Attending Unavailable SHAZIA ELISE Attending Unavailable ITAALIYAH DYER H Attending Unavailable MOLLY GREGORIO Referring Unavailable ITAALIYAH DYER H Attending Unavailable CORBY LARSEN Attending Unavailable CORBY LARSEN Attending Unavailable Allergies Allergy Classification Reported Allergen(s) Allergy Type Date of Onset Reaction(s) Facility coconut allergenic extract (7 sources) coconut allergenic extract Drug Allergy 07-18-20 [facility] (20 sources) coconut allergenic extract; Translations: [Coconut Oil] Drug Allergy 07-18-20 Itching [place], [place] (19 sources) Coconut Flavor; Translations: [COCONUT FLAVOR] Propensity to adverse reactions to drug 05-09-20 Anaphylaxis [place], [place] (1 source) SOAP; Translations: [SOAP] Propensity to adverse reactions to drug (disorder) [facility]) Pencils; Translations: [Unknown] Propensity to adverse reactions (disorder) 11-13-19 [facility] (20 sources) Coconut extract; Translations: [coconut] Drug Allergy 07-18-20 [facility] (20 sources) ARIPiprazole lauroxil; Translations: [aripiprazole] Drug Allergy [facility] (20 sources) ARIPiprazole; Translations: [aripiprazole] Drug Allergy 12-06-20 22 Mental Status Change, Other: See Comments, Unknown, Other [facility] Comment on above: Pt states it makes h er suicidal. (1 source) ARIPiprazole Drug Allergy 10-30-19 23 The [facility] Repository (20 sources) busPIRone; Translations: [Buspirone] Drug Allergy Unknown, palpitations [facility] (20 sources) buPROPion; Translations: [BUPROPION] Drug Allergy 07-16-20 21 Unknown, Other [facility] (18 sources) busPIRone; Translations: [buspirone] Drug Allergy 12-10-19 24 Palpitations [facility] (4 sources) Coconut Oil, Hydrogenated; Translations: [COCONUT OIL, HYDROGENATED] Propensity to adverse reactions 07-18-20 20 Itching [facility] Work Phone: (10 sources) Coconut extract Drug Allergy 01-31-20 24 [...] Start: 08-08-2022 take 1 capsule by mo [facility] every four hours for headache [...] day(s), 7 tab(s), Refill(s) 0, [id number], 170, cm, 11/21/22 10:37:00 EST, Height/Length Dosing, [...] Start: 01-30-2021 [facility] for [...] COCET) 5-325 MG per tablet 1 tablet [id number] actuat albuterol 0.09 mg/actuat metered dose [...] day(s), # 90 tab(s), Refills(s) 0, Pharmacy: [facility]/pharmacy #[id number], 170, cm, 03/03/25 7:35:00 EDT, Height/Length Dosing, 90.4, kg, 02/17/25 18:58:00 EDT, Weight Dosing Start Date: 03/03/25 Stop Date: 04/02/25 Status: Ordered Quantity: 90.0 Unit: tab(s) Repeat number: 1 brompheniramine maleate 0.4 mg/ml / dextromethorphan hydrobromide 2 mg/ml / pseudoephedrine hydrochloride 6 mg/ml oral solution (3 sources) alpha-Adrenergic Agonist, Uncompetitive Z-vbplmu-Z-aspartat e Receptor Antagonist, Sigma-1 Agonist Start: 02-17-2025 take 10 mL by mouth four times daily Bromfed DM oral syrup 10 mL, Oral, QID for cold symptoms, 200 mL, Refill(s) 0, [facility]/pharmacy #[id number], 170, cm, 02/17/25 18:58:00 EDT, Height/Length [...] 0 Start Date: 07/01/21 Status: Ordered Vraylar (18 sources) Atypical Antipsychotic Start: 01-13-2025 Vraylar Oral, Daily, Refills(s) 0 Start Date: 01/13/25 Status: Ordered Repeat number: 1 take 1 capsule by mouth once abdelrahman ly Vraylar 1.5 MG capsule Take 1 capsule by mouth Daily Active chlordiazePOXIDE hydrochloride 25 mg oral capsule (3 sources) Benzodiazepine take 1 capsule by mouth three times daily as needed for anxiety chlordiazePOXIDE (Librium) 25 MG capsule Take 25 mg by mouth 3 (three) times a day as needed for anxiety Active cyclobenzaprine hydrochloride 10 mg oral tablet (9 sources) Muscle Relaxant Start: 11-20-19 take 1 [...] day(s), # 42 tab(s), Refills(s) 0, Pharmacy: [facility]/pharmacy #[id number], 170, cm, 08/22/22 10:41:00 [...] 09-28-2020 diphenhydrAMINE (BENADRYL) i njection 12.5 mg 0.4 [...] TID, # 90 tab(s), Refills(s) 2, Pharmacy: [facility]/pharmacy #[id number], 170, cm, 01/13/25 8:29:00 EDT, Height/Length [...] TID, # 90 cap(s), Refills(s) 0, Pharmacy: [facility]/pharmacy #[id number], 170, cm, 10/14/24 9:02:00 EST, Height/Length [...] Start: 09-15-2024 take 3 tablets by mo [facility] once daily lamotrigine 25 mg Tab TAKE [...] day(s), # 18 tab(s), Refills(s) 0, Pharmacy: [facility]/pharmacy #[id number], 170, cm, 10/18/24 8:12:00 EST, Height/Length [...] Ordered Multiple Vitamins-Minerals (multivitamin with minerals) tablet (10 sources) take 1 tablet by mouth once [...] TAB PO Daily August 11, 2022 12:00am snntqfgccwmg-iqx-hjgb-FA-vit K (BARIATRIC MULTIVITAMINS) 45 mg iron- 800 mcg-120 mcg cap (20 sources) multivitamin-min -iron-FA-vit K (BARIATRIC MULTIVITAMINS) 45 mg iron- 800 mcg-120 mcg cap Take by mouth. Active multivitamin-min -iron-FA-vit K (BARIATRIC MULTIVITAMINS) 45 mg iron- 800 mcg- 120 mcg cap Take by mouth. 0 Active Comment on above: Take by mouth. uuydkkhesmhx-hmt-nx on-FA-vit K (Bariatric Multivitamins) 45 mg iron- [...] day(s), # 20 tab(s), Refills(s) 0, Pharmacy: [facility]/pharmacy #[id number], 170, cm, 03/08/24 13:22:00 EDT, Height/Length Dosing, 89.4, kg, 03/08/24 13:22:00 EDT, Weight Dosing Start Date: 03/08/24 Stop Date: 03/18/24 Status: Ordered Start: 04-20-2022 take 1 tablet by juan manuel twice daily as needed for pain naproxen 500 mg Tab 500 mg = 1 tab(s), Oral, BID, PRN for pain, # 20 tab(s), Refills(s) 0, Pharmacy: [facility]/pharmacy #[id number], 170, cm, 04/20/22 15:01:00 EDT, Height/Length Dosing, 81.5, kg, 04/20/22 15:01:00 EDT, Weight Dosing Start Date: 04/20/22 Status: Ordered 24 hr nicotine 0.583 mg/hr transdermal system (1 source) Cholinergic Nicotinic Agonist Start: 11-03-2022 End: 01-02-2023 nicotine 14 mg/24 hr Transderm ER Film 1 patch(es), Topical, Daily for 30 day(s), 30 patch(es), Refill(s) 1, [facility]/pharmacy #[id number], 170, cm, 11/03/22 13:04:00 EST, Height/Length Dosing, 83.9, kg, 11/03/22 13:04:00 EST, Weight Dosing Start Date: 11/03/22 Stop Date: 01/02/23 Status: Ordered 24 hr NIFEdipine 30 mg extended release oral tablet (5 sources) Dihydropyridine Calcium Channel Minnie Start: 03-15-2025 [...] FOOD Start Date: 01/29/22 Status: Ordered nystatin [id number] unt/ml oral suspension (1 source) Polyene Antifungal [...] BID, # 6 tab(s), Refills(s) 1, Pharmacy: [facility]/pharmacy #[id number], 162, cm, 08/08/22 9:11:00 [...] day(s), # 21 tab(s), Refills(s) 0, [id number], cm, 10/18/24 8:12:00 EST, [...] day(s), # 60 cap(s), Refills(s) 0, Pharmacy: [facility]/pharmacy #[id number], 170, cm, 11/15/24 13:59:00 EST, Height/Length [...] day(s), # 60 cap(s), Refills(s) 1, Pharmacy: [facility]/pharmacy #[id number], 170, cm, 11/15/24 13:59:00 EST, Height/Length [...] day(s), # 7 tab(s), Refills(s) 0, Pharmacy: [facility]/pharmacy #[id number], 170, cm, 01/31/22 16:58:00 [...] number: 1 ziprasidone 20 mg oral capsule (10 sources) Atypical Antipsychotic take 1 capsule by [...] Nausea/Vomiting, # 12 tab(s), Refills(s) 0, Pharmacy: [facility]/pharmacy #[id number], 162, cm, 08/08/22 9:11:00 EST, Height/Length Dosing, 83.1, kg, 08/08/22 9:11:00 EST, Weight Dosing Start Date: 08/08/22 Status: Ordered Completed/Discontinued Medications Medication Drug Class(es) Dates Sig (Normalized) Sig (Original) acetaminophen 325 mg / HYDROcodone bitartrate 5 mg oral tablet (2 sources) Opioid Agonist End: 08-08-2024 take 1 tablet by mouth every six hours as needed HYDROcodone-acetami nophen ([place]) 5-325 mg tablet Take 1 tablet by [...] on above: Take 1 capsule by mo [facility] twice daily. Start from [...] Ordered Start: 01-08-2019 take 1 capsule by mo [facility] twice daily Start: 01-08-2019 End: 03-08-2024 take 1 capsule by mouth once daily at bedtime Duloxetine (Cymbalta) 60 mg Capsule,Delayed Release(Dr/Ec) Active 60 MG PO Daily at bedtime January 08, 2019 12:00am take 1 capsule by mo [facility] every eight hours Cymbalta 30 MG 1 capsule Orally three times a day Active Cymbalta Active Comment on above: Take 60 mg by mouth once daily. ergocalciferol 1.25 mg oral capsule (11 sources) Provitamin D2 Compound Start: 07-19-2020 End: 08-19-2022 Ergocalciferol (Vitamin D2) 1,250 mcg (50,000 unit) capsule Discontinued 69851 UNIT PO every week July 19, 2020 1:00am August 19, 2022 8:39am Start: 07-19-2020 End: 08-19-2022 take 13590 [IU] by mouth every week Ergocalciferol (Vitamin D2) Discontinued 49852 UNIT PO every week July 19, 2020 [...] mg hydrocortisone + Doxycycline 1,000 mg (tabs/cap)., [facility]/pharmacy #[id number], Compound, 170, cm, 02/06/22 [...] [Anxiety disorder, unspecified] Onset: 0 05-16-2020 Chronic Chronic obstructive pulmonary disease and bronchiectasis (2 [...] 2 Resolved: 4 Chronic Headache; including migraine (19 sources) Tension-type headache; Translations: [Tension-type headache, unspecified, not intractable] Onset: 4 08-21-2022 Chronic Headache; including migraine (4 sources) Headache; including migraine; Translations: [HEADACHE UNSPECIFIED] Onset: 2 Joint disorders and dislocations; trauma-related (5 sources) Derangement of left knee; Translations: [Unspecified [...] deficiency, unspecified] Onset: 0 06-27-2020 Chronic Osteoarthritis (20 sources) Arthritis; Translations: [Unspecified osteoarthritis, unspecified site] Onset: 0 05-16-2020 Chronic Other acquired deformities (1 source) Spondylolisthesis; Translations: [Spondylolisthesis, site unspecified] Onset: 4 Episodic Other aftercare (1 source) Other detention (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; Translations: [OTH ASSEMBLER FINGER BUFFS CURRENT DRUG THERAPY] Onset: 3 Episodic Other [...] pain] Onset: 0 05-23-2020 Other eye disorders (10 sources) Optic disc edema; 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] Onset: 4 01-31-2024 Chronic Other gastrointestinal disorders (1 source) Other intestinal malabsorption; Translations: [Other intestinal malabsorption] Onset: 3 Chronic Other gastrointestinal disorders (8 sources) Intestinal malabsorption; Translations: [Intestinal malabsorption, unspecified] [...] system disorders (2 sources) Raised intracranial pressure 03-10-2023 Chronic Other nervous system disorders (1 source) Benign intracranial hypertension; Translations: [Idiopathic intracranial hypertension] Onset: 3 Chronic Other nervous system disorders (10 sources) Ulnar neuropathy; 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 nerve, unspecified upper limb] Onset: 4 01-31-2024 Chronic Other nervous system disorders (11 sources) Chronic pain; Translations: [Other chronic pain] Onset: 4 01-31-2024 Chronic Other nervous system disorders (20 sources) Chronic pain syndrome 09-30-2024 Chronic Other nervous system disorders (5 sources) Difficulty walking; Translations: [Difficulty in walking, not elsewhere classified] Onset: 5 12-22-2024 Chronic Other nervous system disorders (5 sources) Tarsal tunnel syndrome; Translations: [Tarsal tunnel [...] or gangrene] Resolved: 07-24-2021 Episodic Abdominal pain (20 sources) Generalized abdominal pain; Translations: [Generalized abdominal pain] Onset: 06-13-2002 Episodic Acquired foot deformities (15 sources) Acquired bilateral pes planus; Translations: [Flat foot [pes planus] (acquired), right foot] Onset: 05-23-2020 05-23-2020 Episodic Administrative/social admission (5 sources) Education and/or schooling finding; Translations: [Problems related to education and literacy, unspecified] Onset: 06-13-2002 12-22-2024 Episodic Blindness and vision defects (20 sources) Blurring of visual image; Translations: [Other visual disturbances] Onset: 08-19-2022 08-11-2022 Episodic Cardiac dysrhythmias (20 sources) Palpitations; Translations: [Palpitations] Onset: 08-08-2024 08-12-2022 Episodic Complications of surgical procedures or medical care (20 sources) Reaction to lumbar puncture; Translations: [Other reaction to spinal and lumbar puncture] Onset: 08-22-2022 Episodic Deficiency and other anemia (20 sources) Iron deficiency anemia; Translations: [Iron deficiency anemia, unspecified] Onset: 12-22-2024 07-25-2024 Episodic Comment on above: noted in 09/16/2024 [facility] Records page 5. added per OP CDI policy. Diseases of mouth; excluding dental (4 sources) Lesion of oral mucosa; Translations: [Unspecified lesions of oral mucosa] Onset: 02-06-2022 Episodic Fever of unknown origin (3 sources) Fever, unspecified; Translations: [FEVER UNSPECIFIED] Onset: 05-30-2022 Episodic Fluid and electrolyte disorders (6 sources) Dehydration; Translations: [Dehydration] Onset: 01-26-2021 Resolved: 02-25-2021 Episodic Headache; including migraine (20 sources) Headache; Translations: [Headache, unspecified] Onset: 08-08-2022 Episodic Malaise and fatigue (15 sources) Asthenia; Translations: [Weakness] Onset: 01-31-2024 01-31-2024 Episodic Menstrual disorders (6 sources) Excessive and frequent menstruation with irregular cycle; Translations: [Menorrhagia] Onset: 10-30-2022 Resolved: 05-27-2023 Chronic Nutritional deficiencies (10 sources) Iron deficiency; Translations: [Serum iron low] Onset: 05-27-2023 05-27-2023 Episodic Other complications of (20 sources) Poor growth affecting management; Translations: [Maternal care for other known or suspected poor growth, unspecified trimester, not applicable or unspecified] Onset: 07-03-2008 Resolved: 03-08-2024 07-03-2008 Episodic Other connective tissue disease (15 sources) Pain in both feet; Translations: [Pain [...] Onset: 11-19-2021 Episodic Other lower respiratory disease (16 sources) Dyspnea; Translations: [Shortness of breath] Onset: 08-08-2024 08-13-2024 Episodic Other lower respiratory disease (2 sources) Shortness of breath; Translations: [Shortness of breath] Onset: 08-08-2024 Episodic Other nervous system disorders (10 sources) Numbness; Translations: [Anesthesia of skin] Onset: 01-31-2024 01-31-2024 Episodic Other nervous system disorders (20 sources) Paresthesia; Translations: [Paresthesia of skin] Onset: 01-31-2024 01-31-2024 Episodic Other nervous system disorders (1 source) Ataxia, unspecified; Translations: [Ataxia, unspecified] Onset: 12-16-2024 Episodic Other non-traumatic joint disorders (5 sources) Sinus tarsi syndrome of right ankle; [...] 07-11-2024 07-06-2024 Episodic Other upper respiratory infections (20 sources) Acute upper respiratory infection, unspecified; Translations: [Acute pharyngitis, unspecified] Onset: 12-01-2002 Episodic Otitis media and related conditions (7 sources) Acute suppurative otitis media without spontaneous [...] Onset: 03-08-2024 03-08-2024 Episodic Residual codes; unclassified (12 sources) Family history of ischemic heart disease; [...] Spondylosis; intervertebral disc disorders; other back problems (9 sources) Backache; Translations: [Dorsalgia, unspecified] Onset: 06-13-2002 Episodic Sprains and strains (11 sources) Injury of muscle and tendon at [...] Interpretation Reference Range Facility Heart and Vascular Office/Cl bob Noteon 04-27-2025 Heart and Vascular Office/Clinic Note [...] Jak W, CAR Within [address] [place] [address]- Additional Instructions: Jak Peace MD, CAR Within [address] [place] [address]- Additional Instructions: Problem List/Past Medical [...] 0 Allergies (more content not included)... Normal [facility] Comment on above: Result Comment: Elec tronically Signed By: Jak Peace MD W\.br\Date and Time Signed: 04/27/25 15:42 EDT\.br\Electronically Co-Signed By: Roxana Shipman\.br\Date and Time Co-Signed: 04/27/25 15:40 EDT MM diagnostic mammo LT w/CAD on 04-26-2025 MM diagnostic mammo LT w/CAD [facility] Main [place] [address] [place] [address] Ultrasound Report Signed Patient: Shazia Chou MR#: [id number] : 1990 Acct:[id number] Age/Sex: 34 / F ADM Date: 04/26/25 Loc: [place] Room: Type: [facility] Attending Dr: Aaliyah Zamudio DO Ordering Provider: Aaliyah Zamudio DO Date of Service: 04/26/25 MM/MM diagnostic mammo LT w/CAD: follow up for Left breast Upper outer quadrant ([id number]) US/US breast LT limited: follow with mamm upper outer quadrant Copies to: Aaliyah Zamudio, DO DIAGNOSTIC LEFT MAMMOGRAM - FULL FIELD [...] Escalante M.D. 04/26/2025 10:15 AM Dictation Location: [facility] Tech: Shazia Vaughn Transcribed By: MARKY 04/26/25 1015 Dictated By: Denny Escalante MD 04/26/25 1009 Signed By: 04/26/25 1015 Normal [facility] NM Myocardial Spect Rest/Str ess 1 Dayon 04-26-2025 NM Myocardial Spect Rest/Stress 1 Day Exam Date/Time: 04/17/2025 11:57 EDT Reason for Exam: R00.2;[place] [address] Nuclear Stress Report Name: SHAZIA CHOU Study Date: 04/17/2025 08:00 AM Patient Location: [facility] : 1990 (M/d/yyyy) Gender: Female Age: 34 yrs Ethnicity: T Reason For Study: R00.2;Chest pain Ordering Physician: Jak Peace Referring Physician: Jak Peace Protocol 28835 Pharmacologic Lexiscan stress with Isotope. Study Protocol: [...] Signed by: Catalino Vaca MD Transcribed by: [facility] Technologist: SHAHZAD Walters [facility] S. pyogenes DNA JOSÉ MIGUEL+probe No m [...] rhythm. READ BY: terrell Arredondo Dictated: 03/10/2025 [id number] Transcribed: 03/14/2025 cc:*Jak Peace M.D. [facility] Comment on above: Result Comment: Elec tronically Signed By: Lio BHAKTA, Catalino Baker\.br\Date and Time Signed: 03/15/25 07:49 EDT Main OR Intraoperative Recor don 03-03-2025 Main OR Intraoperative Record Main OR Intraoperative Record IntraOp Document Type FTPM Summary Primary Physician: Babar Mayers DO Finalized Date/Time: 03/03/25 08:45:29 Pt. Name: SHAZIA CHOU/Sex: 1990 Female Med Rec #: [id number] Physician: Babar Mayers DO Financial #: [id number] Pt. Type: P Room/Bed: / Admit/Disch: 03/03/25 [...] Lulu Bellamy Role Performed Surgeon - Primary Intern Retail - Primary Scrub - Primary Time In 03/03/25 08:33:00 03/03/25 08:33:00 03/03/25 08:33:00 Time Out 03/03/25 08:45:00 03/03/25 08:45:00 03/03/25 08:45:00 Procedure MEDIAL BRANCH MEDIAL BRANCH MEDIAL BRANCH BLOCK(Bilateral) BLOCK(Bilateral) BLOCK(Bilateral) Comments Last Modified By: Giorgi LARA, Corby Rand RN, Corby Bell RN 03/03/25 08:44:15 M 03/03/25 08:44:15 M 03/03/25 08:44:15 Entry 4 Case Attendee Isaac DAWN(R)Amina Role Performed Surgical Instrument Mechanic Time In 03/03/25 08:33:00 Time Out 03/03/25 [...] and tissue Entry 1 Skin Integrity Intact, [place], Warm, & Skin Abnormality No Dry Outcomes [...] Checked Ye (more content not included)... Normal [facility] Main OR Preoperative Recordo n 03-03-2025 Main OR Preoperative Record Main OR Preoperative Record Holding Area Document Type FTPM Summary Primary Physician: Babar Mayers DO Finalized Date/Time: 03/03/25 07:33:54 Pt. Name: SHAZIA CHOU Valentina/Sex: 1990 Female Med Rec #: [id number] Physician: Babar Mayers DO Financial #: [id number] Pt. Type: P Room/Bed: / Admit/Disch: 03/03/25 [...] By: Gabrielle Sultana RN 03/03/25 07:33 Normal [facility] CBC w/Indiceson 03-02-2025 Erythrocyte distribution width (RBC) [Ratio] 14.4 % High 10.9-14.2 [facility] Comment on above: Performed By: #### 2 [id number] #### [facility] [address] [place] [address] Hematocrit (Bld) [Volume fraction] 39.0 % Normal 34.0-46.0 [facility] Comment on above: Performed By: #### 2 [id number] #### [facility] [address] [place] [address] Hemoglobin (Bld) [Mass/Vol] 13.2 g/dL Normal 12.0-16.0 [facility] Comment on above: Performed By: #### 2 [id number] #### [facility] [address] [place] [address] MCH (RBC) [Entitic mass] 33.5 pg Normal 27.0-34.0 [facility] Comment on above: Performed By: #### 2 [id number] #### [facility] [address] [place] [address] MCHC (RBC) [Mass/Vol] 33.8 g/dL Normal 31.4-36.0 [facility] Comment on above: Performed By: #### 2 [id number] #### [facility] [address] [place] [address] MCV (RBC) [Entitic vol] 99.1 fL Normal 80.0-100.0 [facility] Comment on above: Performed By: #### 2 [id number] #### [facility] [address] [place] [address] Platelet 325.0 E9/L Normal 150.0-500.0 [facility] Comment on above: Performed By: #### 2 [id number] #### [facility] [address] [place] [address] Platelet mean volume (Bld) [Entitic vol] 9.5 fL Normal 6.4-10.8 [facility] Comment on above: Performed By: #### 2 [id number] #### [facility] [address] [place] [address] RBC 3.9 E12/L Low 4.3-5.9 [facility] Comment on above: Performed By: #### 2 [id number] #### [facility] [address] [place] [address] RBC morphology finding Nom (Bld) NORMAL Invalid Interpretation Code [facility] Comment on above: Performed By: #### 2 [id number] #### [facility] [address] [place] [address] WBC 13.1 E9/L High 4.0-11.0 [facility] Comment on above: Performed By: #### 2 [id number] #### [facility] [address] [place] [address] CHEMISTRYOrdered By: SYSTEM SYSTEM on 03-02-2025 Ferritin [Mass/Vol] 11 ng/mL Normal 11 - 307 ng/mL Remisol Chem Iron [Mass/Vol] 156 ug/dL High 35 - 153 mcg/dL Remisol Chem Iron binding capacity [Mass/Vol] 403 ug/dL High 250 - 400 mcg/dL Remisol Chem Transferrin [Mass/Vol] 288 mg/dL Normal 200 - 370 mg/dL Remisol Chem Ferritinon 03-02-2025 Ferritin Lvl 11 ng/mL Normal 11-307 [facility] Comment on above: Performed By: #### 2 [id number] #### [facility] [address] [place] [address] HEMATOLOGYOrdered By: SYSTEM SYSTEM on 03-02-2025 Erythrocyte [...] Ironon 03-02-2025 Iron 156 microgram/dL High 35-153 [facility] Comment on above: Performed By: #### 2 [id number] #### [facility] [address] [place] [address] TIBC Calculatedon 03-02-2025 TIBC 403 microgram/dL High 250-400 [facility] Comment on above: Performed By: #### 1 [id number] #### [facility] [address] [place] [address] Transferrin [Mass/Vol] 288 mg/dL Normal 200-370 [facility] Comment on above: Performed By: #### 1 [id number] #### [facility] [address] [place] [address] ED Note-Physicianon 02-22-20 ED Note-Physician ED Note-Physician [...] and symmetry. No ataxia with finger-nose or [id number]. Intact strength and sensation of bilateral upper [...] unspecified) Dizzi (more content not included)... Normal [facility] Comment on above: Result Comment: Elec tronically Signed By: Ben Garber PA-C\.br\Date and Time Signed: 02/17/25 20:20 EDT\.br\Electronically Co-Signed By: Bakari Chseter DO\.br\Date and Time Co-Signed: 02/21/25 20:08 EDT [...] DO Transcribed by: MARCO Technologist: DANISH Walters [facility] BMPon 02-17-2025 Anion gap [Moles/Vol] 14 mmol/L Normal 6-16 [facility] Comment on above: Performed By: #### 2 [id number] #### [facility] [address] [place] [address] BUN/Creat Ratio 16 No Units Normal 10-20 [facility] Comment on above: Performed By: #### 2 [id number] #### [facility] [address] [place] [address] Calcium [Mass/Vol] 10.4 mg/dL Normal 8.9-11.1 [facility] Comment on above: Performed By: #### 2 [id number] #### [facility] [address] [place] [address] Chloride [Moles/Vol] 105 mmol/L Normal 101-111 [facility] Comment on above: Performed By: #### 2 [id number] #### [facility] [address] [place] [address] CO2 [Moles/Vol] 21 mmol/L Normal 21-31 [facility] Comment on above: Performed By: #### 2 [id number] #### [facility] [address] [place] [address] Creatinine [Mass/Vol] 0.7 mg/dL Normal 0.5-1.3 [facility] Comment on above: Performed By: #### 2 400606 #### [facility] [address] [place] [address] Glucose [Mass/Vol] 109 mg/dL Normal 55-199 [facility] Comment on above: Performed By: #### 2 [id number] #### [facility] [address] [place] [address] Potassium [Moles/Vol] 3.8 mmol/L Normal 3.5-5.3 [facility] Comment on above: Performed By: #### 2 [id number] #### [facility] [address] [place] [address] Sodium [Moles/Vol] 136 mmol/L Normal 135-145 [facility] Comment on above: Performed By: #### 2 [id number] #### [facility] [address] [place] [address] Urea nitrogen [Mass/Vol] 11 mg/dL Normal 5-21 [facility] Comment on above: Performed By: #### 2 [id number] #### [facility] [address] [place] [address] CBC w/ Auto Diffon 5 Basophil Absolute 0.0 E9/L Normal 0.0-0.2 [facility] Comment on above: Performed By: #### 2 [id number] #### [facility] [address] [place] [address] Basophils/100 WBC (Bld) 0.3 % Normal 0.0-2.0 [facility] Comment on above: Performed By: #### 2 [id number] #### [facility] [address] [place] [address] Eos Absolute 0.0 E9/L Normal 0.0-0.5 [facility] Comment on above: Performed By: #### 2 [id number] #### [facility] [address] [place] [address] Eosinophils/100 WBC (Bld) 0.2 % Normal 0.0-8.0 [facility] Comment on above: Performed By: #### 2 260009 #### [facility] [address] [place] [address] Erythrocyte distribution width (RBC) [Ratio] 14.2 % Normal 10.9-14.2 [facility] Comment on above: Performed By: #### 2 [id number] #### [facility] [address] [place] [address] Hematocrit (Bld) [Volume fraction] 40.2 % Normal 34.0-46.0 [facility] Comment on above: Performed By: #### 2 720348 #### [facility] [address] [place] [address] Hemoglobin (Bld) [Mass/Vol] 13.6 g/dL Normal 12.0-16.0 [facility] Comment on above: Performed By: #### 2 [id number] #### [facility] [address] [place] [address] Lymph Absolute 1.4 E9/L Normal 1.0-4.[address] [facility] Comment on above: Performed By: #### 2 796319 #### [facility] [address] [place] [address] Lymphocytes/100 WBC (Bld) 16.5 % Normal 14.0-50.0 [facility] Comment on above: Performed By: #### 2 [id number] #### [facility] [address] [place] [address] MCH (RBC) [Entitic mass] 32.6 pg Normal 27.0-34.0 [facility] Comment on above: Performed By: #### 2 005323 #### [facility] [address] [place] [address] MCHC (RBC) [Mass/Vol] 33.8 g/dL Normal 31.4-36.0 [facility] Comment on above: Performed By: #### 2 368011 #### [facility] [address] [place] [address] MCV (RBC) [Entitic vol] 96.4 fL Normal 80.0-100.0 [facility] Comment on above: Performed By: #### 2 957283 #### [facility] [address] [place] [address] [place] Absolute 0.5 E9/L Normal 0.2-1.0 [facility] Comment on above: Performed By: #### 2 116268 #### [facility] [address] [place] [address] Monocytes/100 WBC (Bld) 5.7 % Normal 4.0-14.0 [facility] Comment on above: Performed By: #### 2 868129 #### [facility] [address] [place] [address] Neutro Absolute 6.5 E9/L Normal 2.0-7.5 [facility] Comment on above: Performed By: #### 2 561210 #### [facility] [address] [place] [address] Neutro Auto 77.3 % High 36.0-75.0 [facility] Comment on above: Performed By: #### 2 [id number] #### [facility] [address] [place] [address] Platelet 350.0 E9/L Normal 150.0-500.0 [facility] Comment on above: Performed By: #### 2 [id number] #### [facility] [address] [place] [address] Platelet mean volume (Bld) [Entitic vol] 9.3 fL Normal 6.4-10.8 [facility] Comment on above: Performed By: #### 2 [id number] #### [facility] [address] [place] [address] RBC 4.2 E12/L Low 4.3-5.9 [facility] Comment on above: Performed By: #### 2 785793 #### [facility] [address] [place] [address] WBC 8.4 E9/L Normal 4.0-11.0 [facility] Comment on above: Performed By: #### 2 [id number] #### [facility] [address] [place] [address] CHEMISTRYOrdered By: SYSTEM SYSTEM on 02-17-2025 Albumin [...] Sensitivity Troponin I Instructions For Use, Carter Howes, April 2018) Urea nitrogen [Mass/Vol] 11 mg/dL Normal 5 - 21 mg/dL Remisol Chem Urea nitrogen/Creatinine [Mass ratio] 16 mg/mg Normal 10 - 20 [facility] COAGULATIONOrdered By: Peng Kahn on 02-17-2025 aPTT Coag (PPP) [Time] 30.7 s Normal 25.1 - 36.5 second(s) [facility] Comment on above: Interpretive Data: P estrada 15 days - 4 weeks 1 - [...] the same coagulation reagent and instrumentation as [facility]. Currently there are no coagulation studies available worldwide for children to 14 days, and no normal ranges. Heparin therapeutic range (represented by Anti-Factor Xa activity of 0.2 - 0.4 U/mL) corresponds to PTT of 56.6 - 109.0 sec. INR Coag (PPP) [Relative time] 0.88 {INR} Invalid Interpretation Code [facility] Comment on above: Interpretive Data: I NR results are specifically intended to assess patients stabilized on long-term Anticoagulation therapy suggested INR s Less Intensive Anticoagulation 2.0 3.0 Conventional Range 3.0 4.5 PT Coag (PPP) [Time] 9.8 s Normal 9.4 - 1 2.5 second(s) [facility] Comment on above: Interpretive Data: [...] the same coagulation reagent and instrumentation as [facility]. Currently there are no coagulation studies available worldwide for children to 14 days, and no normal ranges. ED Clinical Summaryon 2024 ED Clinical Summary ED Clinical Summary [place] [id number] ED Clinical Summary Person Information Name: SHAZIA CHOU [place] Age: 34 Years : 1990 Sex: Female Language: Romanian PCP: Jennie Durand DO Marital Status: Phone: [phone] MRN: Visit Id: Visit Reason: Headache; Cough; Dizziness; [...] 02/17/2025 21:08:51 02/17/2025 21:08:51 02/17/2025 21:08:51 ADDRESS: [address] [place] [id number] PHYS DOC NOTES: MEDICAL INFORMATION: Prescriptions Given: New Medications [facility], [address], [place] [id number], [phone] brompheniramine/dextrom ethorphan/PSE (Bromfed DM oral syrup) 10 [...] Adult Follow up: With: Address: When: Jennie Hameede [address] [place], [place] [phone] [facility] (1) In 3 days 02/20/2025 DIAGNOSIS: Bronchitis; Cough; Dizziness; Vasovagal near syncope Normal [facility] ED Patient Summaryon 025 ED Patient Summary ED Patient Summary [address] [address] Patient Discharge Instructions Person Information Name: SHAZIA CHOU Age: 34 Years Arrival Date: 02/17/2025 18:53:55 Discharge Diagnosis: Bronchitis; Cough; Dizziness; Vasovagal near syncope Primary Care Physician: Jennie Durand DO Provider Information Primary Provider: Bakari Chester DO Advanced Pecan Cleaner:Ben Garber PA-C. The exam and treatment you received in the Emergency Department were for an urgent problem and are not intended as complete care. It is important that you follow up with a doctor, nurse practitioner, or physician???s early childhood teacher assistant for ongoing care. If your symptoms become worse or you do not improve as expected and you are unable to reach your usual health care provider, you should return to the Emergency Department. We are available 24 hours a day. SHAZIA CHOU has been given the following list of patient education materials, prescriptions and follow-up instructions: Follow-up Instructions: With: Address: When: Jennie Ladarius [place], [address] [address] [facility] (1) In 3 days 02/20/2025 In the event that this physician does not participate in your insurance network, please consult with your insurance company to find a nearby participating provider. Patient Education Materials: Near-Syncope; Acute Bronchitis, Adult A MESSAGE TO ALL PATIENTS REGARDING OPIOIDS PRESCRIPTION OPIOIDS: WHAT YOU NEED TO KNOW Prescription opioids can be used to help relieve oomknbdd-nf-bijwcx pain and are often prescribed following a [...] be struggli (more content not included)... Normal [facility] HEMATOLOGYOrdered By: SYSTEM SYSTEM on 02-17-2025 Basophils/100 [...] 02-17-2025 Albumin [Mass/Vol] 4.5 g/dL Normal 3.3-5.0 [facility] Comment on above: Performed By: #### 2 [id number] #### [facility] [address] [place] [address] Albumin/Globulin [Mass ratio] 1.5 {ratio} Normal 1.1-2.2 [facility] Comment on above: Performed By: #### 2 [id number] #### [facility] [address] [place] [address] Alk Phos 55 Int._Unit/L Normal 21-[address] [facility] Comment on above: Performed By: #### 2 [id number] #### [facility] [address] [place] [address] ALT 12 Int._Unit/L Normal 6-[address] [facility] Comment on above: Performed By: #### 2 [id number] #### [facility] [address] [place] [address] AST 17 Int._Unit/L Normal 5-[address] [facility] Comment on above: Performed By: #### 2 616576 #### [facility] [address] [place] [address] Bili Direct 0.1 mg/dL Normal 0.0-0.4 [facility] Comment on above: Performed By: #### 2 115433 #### [facility] [address] [place] [address] Bili Indirect 0.3 mg/dL Normal 0.1-0.9 [facility] Comment on above: Performed By: #### 2 900444 #### [facility] [address] [place] [address] Bili Total 0.4 mg/dL Normal 0.0-1.1 [facility] Comment on above: Performed By: #### 2 743772 #### [facility] [address] [place] [address] Globulin (S) [Mass/Vol] 3.0 g/dL Normal 1.4-4.0 [facility] Comment on above: Performed By: #### 2 034003 #### [facility] [address] [place] [address] Protein [Mass/Vol] 7.5 g/dL Normal 6.0-7.8 [facility] Comment on above: Performed By: #### 2 [id number] #### [facility] [address] [place] [address] Magnesiumon 02-17-2025 Magnesium [Mass/Vol] 1.8 mg/dL Normal 1.3-2.4 [facility] Comment on above: Performed By: #### 2 542789 #### [facility] [address] [place] [address] PT & PTTon 02-17-2025 INR Coag (PPP) [Relative time] 0.88 {INR} Invalid Interpretation Code [facility] Comment on above: Result Comment: INR results are specifically intended to assess patients stabilized on long-term Anticoagulation therapy suggested INR???s ???Less Intensive Anticoagulation??? 2.0 ??? 3.0 Conventional Range 3.0 ??? 4.5 Performed By: #### 1 [id number] #### [facility] [address] [place] [address] PT 9.8 second(s) Normal 9.4-12.5 [facility] Comment on above: Result Comment: 15 [...] the same coagulation reagent and instrumentation as [facility]. Currently there are no coagulation studies available worldwide for children to 14 days, and no normal ranges. Performed By: #### 1 [id number] #### [facility] [address] [place] [address] PTT 30.7 second(s) Normal 25.1-36.[address] [facility] Comment on above: Result Comment: Para [...] the same coagulation reagent and instrumentation as [facility]. Currently there are no coagulation studies available worldwide for children to 14 days, and no normal ranges. Heparin therapeutic range (represented by Anti-Factor Xa activity of 0.2 - 0.4 U/mL) corresponds to PTT of 56.6 - 109.0 sec. Performed By: #### 1 [id number] #### [facility] [address] [place] [address] Pre-Arrival Noteon Pre-Arrival Note Pre-Arrival Note Pre-Arrival Summary Name: , EDUARDA Current Date: 02/17/2025 18:54:29 EDT Gender: Female Date of : Age: 34 Pre-Arrival Type: EMS ETA: 02/17/2025 19:10:00 EDT Primary Care Physician: Presenting Problem: dizziness Pre-Arrival User: Service RNLibby Referring Source: Location: [place] Completion Date/Time: 02/17/2025 18:40:00 [facility] Emergency Department Pre-Hospital Report Form Vital Signs: Pre-Hospital Report: Treatment in Route: Response to Treatment: Misc. Issues: Normal [facility] Troponin 0 Hr.on 02-17-2025 Troponin HS <2.30 Low 10.10-27.10 [facility] Comment on above: Result Comment: The 95% CI (Confidence Interval) PPV (Positive Predictive Value) for myocardial infarction in females is 38 pg/mL, in males 51 pg/mL. The results should be used in conjunction with clinical conditions of myocardial infarction. (Access High Sensitivity Troponin I Instructions For Use, Carter Christopher, April 2018) Performed By: #### 1 [id number] #### [facility] [address] [place] [address] UA with Cult Rflxon 02-18-20 25 Color (U) Light-Yellow Normal Yellow [facility] Comment on above: Result Comment: Micr oscopic readings are only performed on those samples that meet specific criteria set forth by [facility]. Performed By: #### 4 [id number] #### [facility] [address] [place] [address] Glucose (U) [Mass/Vol] Negative Normal Negative [facility] Comment on above: Performed By: #### 4 [id number] #### [facility] [address] [place] [address] Ketones Ql (U) Negative Normal Negative [facility] Comment on above: Performed By: #### 4 [id number] #### [facility] [address] [place] [address] UA Blood Negative Normal Negative [facility] Comment on above: Performed By: #### 4 [id number] #### [facility] [address] [place] [address] UA Bacteria Trace Normal Trace [facility] Comment on above: Performed By: #### 4 [id number] #### [facility] [address] [place] [address] UA Clarity Clear Normal Clear [facility] Comment on above: Performed By: #### 4 [id number] #### [facility] [address] [place] [address] UA Leuk Est 25 Keven/uL Normal Negative [facility] Comment on above: Performed By: #### 4 [id number] #### [facility] [address] [place] [address] UA Mucous Negative Normal Negative [facility] Comment on above: Performed By: #### 4 [id number] #### [facility] [address] [place] [address] UA Nitrite Negative Normal Negative [facility] Comment on above: Performed By: #### 4 [id number] #### [facility] [address] [place] [address] UA pH 7.5 Invalid Interpretation Code 5.0-9.0 [facility] Comment on above: Performed By: #### 4 [id number] #### [facility] [address] [place] [address] UA Protein Negative Normal Negative [facility] Comment on above: Performed By: #### 4 [id number] #### [facility] [address] [place] [address] UA RBC 0-3 Normal 0-3 [facility] Comment on above: Performed By: #### 4 [id number] #### [facility] [address] [place] [address] UA Spec Grav 1.006 Invalid Interpretation Code 1.005-1.030 [facility] Comment on above: Performed By: #### 4 [id number] #### [facility] [address] [place] [address] UA Squam Epithelial 3-4 Invalid Interpretation Code [facility] Comment on above: Performed By: #### 4 [id number] #### [facility] [address] [place] [address] UA Transitional Epithelial 0-2 Normal 0-2 [facility] Comment on above: Performed By: #### 4 [id number] #### [facility] [address] [place] [address] UA Urobilinogen Negative Normal Negative [facility] Comment on above: Performed By: #### 4 [id number] #### [facility] [address] [place] [address] UA WBC 0-5 Normal 0-5 [facility] Comment on above: Performed By: #### 4 [id number] #### [facility] [facility] [address] [place] [address] Urobilinogen (U) [Mass/Vol] Negative Normal Negative [facility] Comment on above: Performed By: #### 4 [id number] #### [facility] [address] [place] [address] UA Spec Desc Clean Catch Normal [facility] Comment on above: Performed By: #### 4 [id number] #### [facility] [address] [place] [address] URINALYSISOrdered By: SYSTEM SYSTEM on 02-17-2025 Bacteria [...] that meet specific criteria set forth by [facility]. Epithelial cells.squamous Auto (Urine sed) [#/Area] [...] (U) [#/Area] 0-2 graded/HPF Normal 0-2graded/HP [place] [facility] [place] Auto SS Urobilinogen (U) [Mass/Vol] Negative Normal Negativemg/d L [facility] [place]A Auto SS WBC Auto (Urine sed) [#/Area] 0-5 graded/HPF Normal 0-5graded/HP F [facility] [place] UA Auto SS URINALYSISOrdered By: Ben Garber on 02-17-2025 UA Spec Desc Clean Catch (02/17/25 7:24 PM) Normal [facility] [place] UA Auto SS eGFRon 02-17-2025 eGFR 115 mL/min/1.73 m2 Normal >=59 [facility] Comment on above: Performed By: #### 1 [id number] #### [facility] [address] [place] [address] Heart and Vascular Office/Cl inic Noteon 02-16-2025 [...] beat which represents less than 0.01%. 7. DE interval 0.15 second, QRS 0.10 second, QT [...] Foot, Gastric (more content not included)... Normal [facility] Comment on above: Result Comment: Elec tronically Signed By: Jak Peace MD\.br\Date and Time Signed: 02/16/25 14:43 EDT\.br\Electronically Co-Signed [...] Peace FINAL REPORT Dictated: 02/16/2025 2:29 pm Signer Julio BHAKTA Signed (Electronic Signature): 02/16/2025 2:29 pm Signed by: Julio Snyder MD Transcribed by: MARCO Technologist: MELYSSA Normal [facility] Holter Monitoron 02-13-2025 Holter Monitor Holter Monitor [...] beat which represents less than 0.01%. 7. DE interval 0.15 second, QRS 0.10 second, QT 0.40 second at heart rate of 64 beats per minute. READ BY: terrell Hernandez Dictated: 02/10/2025 [id number] Transcribed: 02/13/2025 [facility] Comment on above: Result Comment: Elec tronically Signed By: Fernandez Daniels MD\.br\Date and Time Signed: 02/13/25 18:05 EDT Main OR Intraoperative Recor don 01-24-2025 Main OR Intraoperative Record Main OR Intraoperative Record IntraOp Document Type FTPM Summary Primary Physician: Babar Mayers DO Finalized Date/Time: 01/24/25 09:58:05 Pt. Name: SHAZIA CHOU/Sex: 1990 Female Med Rec #: [id number] Physician: Babar Mayers DO Financial #: [id number] Pt. Type: P Room/Bed: / Admit/Disch: 01/24/25 [...] Corby Blue Role Performed Surgeon - Primary Intern Retail - Primary Scrub - Primary Time In 01/24/25 09:48:00 01/24/25 09:48:00 01/24/25 09:48:00 Time Out 01/24/25 09:58:00 01/24/25 09:58:00 01/24/25 09:58:00 Procedure MEDIAL BRANCH MEDIAL BRANCH MEDIAL BRANCH BLOCK(Bilateral) BLOCK(Bilateral) BLOCK(Bilateral) Comments Last Modified By: Nolvia Rodas RN, RN, Madison A Pritchard RN, Madison A 01/24/25 09:57:49 01/24/25 09:57:49 01/24/25 09:57:49 Entry 4 Case Attendee Jennie Hurtado Role Performed Surgical Instrument Mechanic Time In 01/24/25 09:48:00 Time Out 01/24/25 [...] and tissue Entry 1 Skin Integrity Intact, [place], Warm, & Skin Abnormality No Dry Outcomes Met? Yes Last Modified By: Novlia Rodas RN 01/24/25 09:52:01 Post-Care Text: The [...] Under Knees Press Points Checked Yes By Vu Rodas RN (more content not included)... Normal [facility] Main OR Preoperative Recordo n 01-24-2025 Main OR Preoperative Record Main OR Preoperative Record Holding Area Document Type FTPM Summary Primary Physician: Babar Mayers DO Finalized Date/Time: 01/24/25 08:43:59 Pt. Name: SHAZIA CHOU /Sex: 1990 Female Med Rec #: [id number] Physician: Babar Mayers DO Financial #: [id number] Pt. Type: P Room/Bed: / Admit/Disch: 01/24/25 [...] By: Gabrielle Sultana RN 01/24/25 08:43 Normal [facility] MR head/brain wo/w conon MR head/brain wo/w con [facility] Main [place] [id number] MRI Report Signed Patient: Shazia Chou MR#: [id number] : 1990 Acct:[id number] Age/Sex: 33 / F ADM Date: 12/16/24 Loc: MR Room: Type: [facility] Attending Dr: Corby Larsen DO Copies [...] Denny Escalante M.D.12/16/2024 2:50 PM Dictation Location: [place] [address] Transcribed By: MARKY 12/16/24 0470 Dictated By: Denny Escalante MD 12/16/24 7777 Signed By: 12/16/24 1450 Normal [facility] Magnetic resonance imaging r eportOrdered By: Denny Escalante on 12-16-2024 Study report [facility] Main [address] [address] MRI Report Signed Patient: Shazia Chou MR#: [id number] : 1990 Acct:[id number] Age/Sex: 33 / F ADM Date: 5 Loc: MR Room: Type: [facility] Attending Dr: Corby Larsen DO Copies [...] process by MRI. Impression dictated by: Denny Escalnate M.D.12/16/2024 2:50 PM Dictation Location: [place] [address] Transcribed By: [facility] 12/16/24 1450 Dictated By: Denny Escalante MD 12/16/24 1404 Signed By: 12/16/24 1450 [facility] Work Phone: XR Spine Lumbar [employer] [...] MD Transcribed by: MARCO Technologist: CHAN Walters [facility] 24 hour urine albumin/total protein ratio by electrophoresisOrdered By: Jacob Baker on 12-12-2024 Albumin Elph (24H U) [Mass fraction] Albumin/Protein.total in 24 hour Urine by Electrophoresis . [facility] 24 hour urine gamma globulin /total protein ratio by electrophoresisOrdered By: Jacob Baker on 12-12-2024 Gamma globulin Elph (24H U) [Mass fraction] Gamma globulin/Protein.total in 24 hour Urine by Electrophoresis . [facility] 24 hour urine protein monocl onal/total protein by electrophoresisOrdered By: Jacob Baker on 12-12-2024 Protein.monoclonal Elph (24H U) [Mass fraction] Protein.monoclonal/Prot ein.total in 24 hour Urine by Electrophoresis Not Observed [facility] CYNDI Antinuclear Antibodieson 12-12-2024 Antinuclear Abs, IFA Negative Normal . [facility] Comment on above: Result Comment: Nega tive <1:80 Borderline 1:80 Positive >1:80 ICAP nomenclature: AC-0 For more information about Hep-2 cell patterns use ANApatterns.org, the official website for the International Consensus on Antinuclear Antibody (CYNDI) Patterns (ICAP). Performed at: [place] [id number] Control Room Tender: Santy Storey PhD, Phone: [phone] Performed By: #### M G, ESR, CMP, HS TROP, PTT, TSH3, T4F, ETOH, PT #### [address] Result Comment: Nega tive <1:80 Borderline 1:80 Positive >1:80 ICAP nomenclature: AC-0 For more information about Hep-2 cell patterns use ANApatterns.org, the official website for the International Consensus on Antinuclear Antibody (CYNDI) Patterns (ICAP). Performed at: [address] [id number] Control Room Tender: Santy Storey PhD, Phone: [phone] PERFORMED BY: [place] [address] PATHOLOGIST MEDICAL EQUIPMENT REPAIR TECHNICIAN CARLOS KNAPP M.D. Alanine aminotransferase [En zymatic activity/volume] in Serum or PlasmaOrdered By: Jacob Baker on 12-12-2024 ALT [Catalytic activity/Vol] Alanine aminotransferase [Enzymatic activity/volume] in Serum or Plasma 752 [facility] Albumin [Mass/volume] in Ser um or Plasma by Bromocresol green (BCG) dye binding methoOrdered By: Jacob Baker on 12-12-2024 Albumin BCG dye [Mass/Vol] Albumin [Mass/volume] in Serum or Plasma by Bromocresol green (BCG) dye binding metho 3.5-5.7 [facility] Alkaline phosphatase [Enzyma tic activity/volume] in Serum or PlasmaOrdered By: Jacob Baker on 12-12-2024 ALP [Catalytic activity/Vol] Alkaline phosphatase [Enzymatic activity/volume] in Serum or Plasma 34-104 [facility] Anti-Centromere B Antibodies on 12-12-2024 Anti-Centromere B Antibodies <0.2 Normal 0.0-0.9 [facility] Comment on above: Result Comment: Perf ormed at: [address] [id number] Control Room Tender: Santy Storey PhD, Phone: [phone] Performed By: #### M G, ESR, CMP, HS TROP, PTT, TSH3, T4F, ETOH, PT #### [place] [address] [place] Anti-RNPon 12-12-2024 Anti-RESPIRATORY SERVICES MANAGER <0.2 Normal 0.0-0.9 [facility] Comment on above: Performed By: #### M G, ESR, CMP, HS TROP, PTT, TSH3, T4F, ETOH, PT #### [address] [address] [place] Anti-Helm Antibodieson 11-14 Anti-Helm Antibodies <0.2 Normal 0.0-0.9 [facility] Comment on above: Performed By: #### M G, ESR, CMP, HS TROP, PTT, TSH3, T4F, ETOH, PT #### [facility] [address] [place] [address] [place] Anti-dsDNA(DBL)Abon 12-13-19 25 Anti-dsDNA(DBL)Ab 1 [IU]/mL Normal 0-9 [facility] Comment on above: Result Comment: Nega tive <5 Equivocal 5 - 9 Positive >9 Performed By: #### M G, ESR, CMP, HS TROP, PTT, TSH3, T4F, ETOH, PT #### [facility] [place] [facility] [address] [place] [address] [place] Anticardiolipin IgG/M/A, Qno n 12-12-2024 Anticardiolipin Ab, IgA,Qn <9 Normal 0-11 [facility] Comment on above: Result Comment: Nega tive: <12 Indeterminate: 12 - 20 Low-Med Positive: >20 - 80 High Positive: >80 Performed By: #### M G, ESR, CMP, HS TROP, PTT, TSH3, T4F, ETOH, PT #### [facility] [place] [facility] [address] [place] [address] [place] Anticardiolipin Ab, IgG,Qn <9 Normal 0-14 [facility] Comment on above: Result Comment: Nega tive: <15 Indeterminate: 15 - 20 Low-Med Positive: >20 - 80 High Positive: >80 Performed By: #### M G, ESR, CMP, HS TROP, PTT, TSH3, T4F, ETOH, PT #### [facility] [place] [facility] [address] [place] [address] [place] Anticardiolipin Ab, IgM,Qn <9 Normal 0-12 [facility] Comment on above: Result Comment: Nega tive: <13 Indeterminate: 13 - 20 Low-Med Positive: >20 - 80 High Positive: >80 Performed By: #### M G, ESR, CMP, HS TROP, PTT, TSH3, T4F, ETOH, PT #### [facility] [place] [facility] [address] [place] [id number] [facility] Appearance of UrineOrdered B y: Jacob Baker on 12-12-2024 Appearance (U) Urine appearance Clear [facility] Aspartate aminotransferase [ Enzymatic activity/volume] in Serum or PlasmaOrdered By: Jacob Baker on 12-12-2024 AST [Catalytic activity/Vol] Aspartate aminotransferase [Enzymatic activity/volume] in Serum or Plasma 13-39 [facility] Bacteria [Presence] in Urine by AutomatedOrdered By: Jacob Baker on 12-12-2024 Bacteria Auto Ql (U) Bacteria [Presence] in Urine by Automated None Seen [facility] Basophils Auto (Bld) [#/Vol] Ordered By: Jacob Baker on 12-12-2024 Basophils (Bld) [#/Vol] Automated basophil count 0.0-0.2 [facility] Basophils/100 WBC Auto (Bld) Ordered By: Jacob Chaneyrow on 12-12-2024 Basophils/100 WBC (Bld) Automated basophil % . [facility] Beta 2 Glycoprotein I Ab IgG /Mon 12-12-2024 Beta 2 Glycoprotein I Ab, IgG <9 Normal 0-20 [facility] Comment on above: [...] TROP, PTT, TSH3, T4F, ETOH, PT #### [facility] [place] [facility] [address] [place] [id number] [facility] Beta 2 Glycoprotein I Ab, IgM <9 Normal 0-32 [facility] Comment on above: Result Comment: Resu lt Units: GPI IgM units The reference interval reflects a 3SD or 99th percentile interval, which is thought to represent a potentially clinically significant result in accordance with the International Consensus Statement on the classification criteria for definitive antiphospholipid syndrome (APS). J Thromb Haem 2006;4:295-306. Performed at: - [place] [id number] Control Room Tender: Santy Storey PhD, Phone: [phone] Performed By: #### M G, ESR, CMP, HS TROP, PTT, TSH3, T4F, ETOH, PT #### [facility] [place] [facility] [address] [place] [id number] [facility] Beta 2 glycoprotein 1 IgG Ab [Units/volume] in SerumOrdered By: Jacob Baker on 12-12-2024 Beta 2 glycoprotein 1 IgG Qn (S) Beta 2 glycoprotein 1 IgG Ab [Units/volume] in Serum 0-20 [facility] Comment on above: Result Units: GPI Ig [...] [Presence] in Urine by Test strip Negative [facility] Bilirubin.total [Mass/volume ] in Serum or PlasmaOrdered By: Jacob Baker on 12-12-2024 Bilirubin [Mass/Vol] Bilirubin.total [Mass/volume] in Serum or Plasma 0.3-1.0 [facility] C reactive protein [Mass/vol ume] in Serum or PlasmaOrdered By: Jacob Baker on 12-12-2024 CRP [Mass/Vol] C reactive protein [Mass/volume] in Serum or Plasma 0.0-0.5 [facility] C-Reactive Proteinon 025 CRP [Mass/Vol] mg/L Normal 0.0-0.5 [facility] Comment on above: Performed By: #### T SH3, ESR, ADDONUAPLUS, PP, CRP, T4F, CMP, CK, CBC ####[facility] [place] [facility] [id number]#### ALDOLASE, UPE RAND, MYOG, SPE, SYMONE,URINE, RPR W RFX, SYMONE SERUM ####[facility] , Calcium [Mass/volume] in Ser um or PlasmaOrdered By: Jacob Olivia on 12-12-2024 Calcium [Mass/Vol] Calcium [Mass/volume ] in Serum or Plasma 8.6-10.3 [facility] Carbon dioxide, total [Moles /volume] in Serum or PlasmaOrdered By: Jacob Baker on 12-12-2024 CO2 [Moles/Vol] Carbon dioxide, tota l [Moles/volume] in Serum or Plasma 21.0-31.0 [facility] Chloride [Moles/volume] in S tushar or PlasmaOrdered By: Jacobparmjit Baker on 12-12-2024 Chloride [Moles/Vol] Chloride [Moles/vol ume] in Serum or Plasma 98-107 [facility] Chromatin Antibodyon 025 Chromatin Antibody <0.2 Normal 0.0-0.9 [facility] Comment on above: Result Comment: PERF ORMED BY: [place] [address] PATHOLOGIST MEDICAL EQUIPMENT REPAIR TECHNICIAN CARLOS KNAPP M.D. Performed By: #### M G, ESR, CMP, HS TROP, PTT, TSH3, T4F, ETOH, PT #### [facility] [place] [facility] [address] [place] [address] Coagulation Profileon 2024 aPTT Coag (Bld) [Time] 29.5 s Normal 25.1-36.5 [facility] Comment on above: Result Comment: A he matocrit value greater than 55% may lead to inaccurate results in coagulation testing. Patients having hematocrit values >55% require a special collection tube for coagulation studies. Please contact the laboratory at [phone] for redraw instructions. PERFORMED BY: [place] [address] PATHOLOGIST MEDICAL EQUIPMENT REPAIR TECHNICIAN CARLOS KNAPP M.D. Performed By: #### T SH3, ESR, ADDONUAPLUS, PP, CRP, T4F, CMP, CK, CBC ####[facility] [id number] [place] [address] [place]#### ALDOLASE, UPE RAND, MYOG, SPE, SYMONE,URINE, RPR W RFX, SYMONE SERUM ####[facility] , INR Coag (PPP) [Relative time] 0.8 {INR} Normal [facility] Comment on above: [...] ADDONUAPLUS, PP, CRP, T4F, CMP, CK, CBC ####[facility] [id number]#### ALDOLASE, UPE RAND, MYOG, SPE, SYMONE,URINE, RPR W RFX, SYMONE SERUM ####[facility] , PT Coag (PPP) [Time] 9.6 s Normal 9.0-12.9 [facility] Comment on above: Result Comment: A he matocrit value greater than 55% may lead to inaccurate results in coagulation testing. Patients having hematocrit values >55% require a special collection tube for coagulation studies. Please contact the laboratory at [phone] for redraw instructions. Performed By: #### T SH3, ESR, ADDONUAPLUS, PP, CRP, T4F, CMP, CK, CBC ####[facility] [address] [place] [id number] [facility]#### ALDOLASE, UPE RAND, MYOG, SPE, SYMONE,URINE, RPR W RFX, SYMONE SERUM ####[facility] , Color Auto (U)Ordered By: Stephany Baker on 12-12-2024 Color (U) Color of Urine by Auto Yellow [facility] Complement C3on 12-12-2024 Complement C3 133 mg/dL Normal 82-167 [facility] Comment on above: Performed By: #### M G, ESR, CMP, HS TROP, PTT, TSH3, T4F, ETOH, PT #### [facility] [address] Complement C4on 12-12-2024 Complement C4 23 mg/dL Normal 12-38 [facility] Comment on above: Performed By: #### M G, ESR, CMP, HS TROP, PTT, TSH3, T4F, ETOH, PT #### [facility] [address] Complement Total (CH50)on Complement Total (CH50) >60 Normal >41 [facility] Comment on above: [...] of range values. Performed at: - [facility] [address] [id number] Control Room Tender: Santy Storey PhD, Phone: [phone] PERFORMED BY: [place] [address] PATHOLOGIST MEDICAL EQUIPMENT REPAIR TECHNICIAN CARLOS KNAPP M.D. Performed By: #### A DNA, SJOGRENS, HELM, C3, HISAB, CCP, CHROMATIN, CENTROME, RA, CYNDI, [id number], JO1, B2 GLYPROT, ANTIR, CARDIO GMA, C4, CH50 ####[facility] , Complete Blood Count Auto Di ffon 12-12-2024 Basophils (Bld) [#/Vol] 0.1 10*3/uL Normal 0.0-0.2 [facility] Comment on above: Performed By: #### T SH3, ESR, ADDONUAPLUS, PP, CRP, T4F, CMP, CK, CBC ####[facility] [id number]#### ALDOLASE, UPE RAND, MYOG, SPE, SYMONE,URINE, RPR W RFX, SYMONE SERUM ####[facility] , Basophils/100 WBC (Bld) 0.8 % Normal . [facility] Comment on above: Performed By: #### T SH3, ESR, ADDONUAPLUS, PP, CRP, T4F, CMP, CK, CBC ####[address]#### ALDOLASE, UPE RAND, MYOG, SPE, SYMONE,URINE, RPR W RFX, SYMONE SERUM ####[facility] , Eosinophils (Bld) [#/Vol] 0.2 10*3/uL Normal 0.0-0.45 [facility] Comment on above: Performed By: #### T SH3, ESR, ADDONUAPLUS, PP, CRP, T4F, CMP, CK, CBC ####[address]#### ALDOLASE, UPE RAND, MYOG, SPE, SYMONE,URINE, RPR W RFX, SYMONE SERUM ####[facility] , Eosinophils/100 WBC (Bld) 2.0 % Normal . [facility] Comment on above: Performed By: #### T SH3, ESR, ADDONUAPLUS, PP, CRP, T4F, CMP, CK, CBC ####[address]#### ALDOLASE, UPE RAND, MYOG, SPE, SYMONE,URINE, RPR W RFX, SYMONE SERUM ####[facility] , Erythrocyte distribution width (RBC) [Ratio] 15.3 % Normal 11.9-15.3 [facility] Comment on above: Performed By: #### T SH3, ESR, ADDONUAPLUS, PP, CRP, T4F, CMP, CK, CBC ####[address]#### ALDOLASE, UPE RAND, MYOG, SPE, SYMONE,URINE, RPR W RFX, SYMONE SERUM ####[facility] , Hematocrit (Bld) [Volume fraction] 40.4 % Normal 34.0-46.4 [facility] Comment on above: Performed By: #### T SH3, ESR, ADDONUAPLUS, PP, CRP, T4F, CMP, CK, CBC ####[address]#### ALDOLASE, UPE RAND, MYOG, SPE, SYMONE,URINE, RPR W RFX, SYMONE SERUM ####[facility] , Hemoglobin (Bld) [Mass/Vol] 13.6 g/dL Normal 11.8-15.4 [facility] Comment on above: Performed By: #### T SH3, ESR, ADDONUAPLUS, PP, CRP, T4F, CMP, CK, CBC ####[address]#### ALDOLASE, UPE RAND, MYOG, SPE, SYMONE,URINE, RPR W RFX, SYMONE SERUM ####[facility] , Lymphocytes (Bld) [#/Vol] 1.8 10*3/uL Normal 1.00-4.8 [facility] Comment on above: Performed By: #### T SH3, ESR, ADDONUAPLUS, PP, CRP, T4F, CMP, CK, CBC ####[place] [address] [place]#### ALDOLASE, UPE RAND, MYOG, SPE, SYMONE,URINE, RPR W RFX, SYMONE SERUM ####[facility] , Lymphocytes/100 WBC (Bld) 18.1 % Normal . [facility] Comment on above: Performed By: #### T SH3, ESR, ADDONUAPLUS, PP, CRP, T4F, CMP, CK, CBC ####[place] [address] [place]#### ALDOLASE, UPE RAND, MYOG, SPE, SYMONE,URINE, RPR W RFX, SYMONE SERUM ####[facility] , MCH (RBC) [Entitic mass] 33.1 pg Normal 24.7-34.3 [facility] Comment on above: Performed By: #### T SH3, ESR, ADDONUAPLUS, PP, CRP, T4F, CMP, CK, CBC ####[place] [id number] [address]#### ALDOLASE, UPE RAND, MYOG, SPE, SYMONE,URINE, RPR W RFX, SYMONE SERUM ####[facility] , MCV (RBC) [Entitic vol] 98.2 fL Normal 80-100 [facility] Comment on above: Performed By: #### T SH3, ESR, ADDONUAPLUS, PP, CRP, T4F, CMP, CK, CBC ####[address]#### ALDOLASE, UPE RAND, MYOG, SPE, SYMONE,URINE, RPR W RFX, SYMONE SERUM ####[facility] , Mean Corpuscular HGB Conc 33.7 g/dL Normal 32.0-35.0 [facility] Comment on above: Performed By: #### T SH3, ESR, ADDONUAPLUS, PP, CRP, T4F, CMP, CK, CBC ####[address]#### ALDOLASE, UPE RAND, MYOG, SPE, SYMONE,URINE, RPR W RFX, SYMONE SERUM ####[facility] , Monocytes (Bld) [#/Vol] 0.7 10*3/uL Normal 0.0-0.8 [facility] Comment on above: Performed By: #### T SH3, ESR, ADDONUAPLUS, PP, CRP, T4F, CMP, CK, CBC ####[address]#### ALDOLASE, UPE RAND, MYOG, SPE, SYMONE,URINE, RPR W RFX, SYMONE SERUM ####[facility] , Monocytes/100 WBC (Bld) 6.8 % Normal . [facility] Comment on above: Performed By: #### T SH3, ESR, ADDONUAPLUS, PP, CRP, T4F, CMP, CK, CBC ####[address]#### ALDOLASE, UPE RAND, MYOG, SPE, SYMONE,URINE, RPR W RFX, SYMONE SERUM ####[facility] , Neutrophils (Bld) [#/Vol] 7.1 10*3/uL Normal 1.8-7.7 [facility] Comment on above: Performed By: #### T SH3, ESR, ADDONUAPLUS, PP, CRP, T4F, CMP, CK, CBC ####[address]#### ALDOLASE, UPE RAND, MYOG, SPE, SYMONE,URINE, RPR W RFX, SYMONE SERUM ####[facility] , Neutrophils/100 WBC (Bld) 72.3 % Normal . [facility] Comment on above: Performed By: #### T SH3, ESR, ADDONUAPLUS, PP, CRP, T4F, CMP, CK, CBC ####[address]#### ALDOLASE, UPE RAND, MYOG, SPE, SYMONE,URINE, RPR W RFX, SYMONE SERUM ####[facility] , NRBC% 0.0 /100{WBC} Normal 0-0.5 [facility] Comment on above: Performed By: #### T SH3, ESR, ADDONUAPLUS, PP, CRP, T4F, CMP, CK, CBC ####[address]#### ALDOLASE, UPE RAND, MYOG, SPE, SYMONE,URINE, RPR W RFX, SYMONE SERUM ####[facility] , Platelet mean volume (Bld) [Entitic vol] 9.6 fL Normal 6.3-10.7 [facility] Comment on above: Performed By: #### T SH3, ESR, ADDONUAPLUS, PP, CRP, T4F, CMP, CK, CBC ####[address]#### ALDOLASE, UPE RAND, MYOG, SPE, SYMONE,URINE, RPR W RFX, SYMONE SERUM ####[facility] , Platelets (Bld) [#/Vol] 297 10*3/uL Normal 150-450 [facility] Comment on above: Performed By: #### T SH3, ESR, ADDONUAPLUS, PP, CRP, T4F, CMP, CK, CBC ####[address]#### ALDOLASE, UPE RAND, MYOG, SPE, SYMONE,URINE, RPR W RFX, SYMONE SERUM ####[facility] , RBC (Bld) [#/Vol] 4.11 10*6/uL Normal 3.60-5.00 [facility] Comment on above: Performed By: #### T SH3, ESR, ADDONUAPLUS, PP, CRP, T4F, CMP, CK, CBC ####[address]#### ALDOLASE, UPE RAND, MYOG, SPE, SYMONE,URINE, RPR W RFX, SYMONE SERUM ####[facility] , WBC (Bld) [#/Vol] 9.8 10*3/uL Normal 3.8-11.6 [facility] Comment on above: Performed By: #### T SH3, ESR, ADDONUAPLUS, PP, CRP, T4F, CMP, CK, CBC ####[place] [address] [place]#### ALDOLASE, UPE RAND, MYOG, SPE, SYMONE,URINE, RPR W RFX, SYMONE SERUM ####[facility] , Comprehensive Metabolic Pane jak 12-12-2024 Albumin [Mass/Vol] 4.7 g/dL Normal 3.5-5.7 [facility] Comment on above: Performed By: #### T SH3, ESR, ADDONUAPLUS, PP, CRP, T4F, CMP, CK, CBC ####[address]#### ALDOLASE, UPE RAND, MYOG, SPE, SYMONE,URINE, RPR W RFX, SYMONE SERUM ####[facility] , Albumin/Globulin [Mass ratio] 1.7 {ratio} Normal [facility] Comment on above: Performed By: #### T SH3, ESR, ADDONUAPLUS, PP, CRP, T4F, CMP, CK, CBC ####[address]#### ALDOLASE, UPE RAND, MYOG, SPE, SYMONE,URINE, RPR W RFX, SYMONE SERUM ####[facility] , ALP [Catalytic activity/Vol] 69 U/L Normal 34-104 [facility] Comment on above: Performed By: #### T SH3, ESR, ADDONUAPLUS, PP, CRP, T4F, CMP, CK, CBC ####[address]#### ALDOLASE, UPE RAND, MYOG, SPE, SYMONE,URINE, RPR W RFX, SYMONE SERUM ####[facility] , ALT [Catalytic activity/Vol] 20 U/L Normal 7-52 [facility] Comment on above: Performed By: #### T SH3, ESR, ADDONUAPLUS, PP, CRP, T4F, CMP, CK, CBC ####[address]#### ALDOLASE, UPE RAND, MYOG, SPE, SYMONE,URINE, RPR W RFX, SYMONE SERUM ####[facility] , Anion gap [Moles/Vol] 13.5 mmol/L Normal 6.0-15.0 [facility] Comment on above: Performed By: #### T SH3, ESR, ADDONUAPLUS, PP, CRP, T4F, CMP, CK, CBC ####[place] [id number] [address]#### ALDOLASE, UPE RAND, MYOG, SPE, SYMONE,URINE, RPR W RFX, SYMONE SERUM ####[facility] , AST [Catalytic activity/Vol] 23 U/L Normal 13-39 [facility] Comment on above: Performed By: #### T SH3, ESR, ADDONUAPLUS, PP, CRP, T4F, CMP, CK, CBC ####[address]#### ALDOLASE, UPE RAND, MYOG, SPE, SYMONE,URINE, RPR W RFX, SYMONE SERUM ####[facility] , Bilirubin [Mass/Vol] 0.3 mg/dL Normal 0.3-1.0 [facility] Comment on above: Performed By: #### T SH3, ESR, ADDONUAPLUS, PP, CRP, T4F, CMP, CK, CBC ####[place] [address] [place]#### ALDOLASE, UPE RAND, MYOG, SPE, SYMONE,URINE, RPR W RFX, SYMONE SERUM ####[facility] , Calcium [Mass/Vol] 10.3 mg/dL Normal 8.6-10.3 [facility] Comment on above: Performed By: #### T SH3, ESR, ADDONUAPLUS, PP, CRP, T4F, CMP, CK, CBC ####[place] [address] [place]#### ALDOLASE, UPE RAND, MYOG, SPE, SYMONE,URINE, RPR W RFX, SYMONE SERUM ####[facility] , Chloride [Moles/Vol] 103 mmol/L Normal 98-107 [facility] Comment on above: Performed By: #### T SH3, ESR, ADDONUAPLUS, PP, CRP, T4F, CMP, CK, CBC ####[place] [address] [address]#### ALDOLASE, UPE RAND, MYOG, SPE, SYMONE,URINE, RPR W RFX, SYMONE SERUM ####[facility] , CO2 [Moles/Vol] 28.8 mmol/L Normal 21.0-31.0 [facility] Comment on above: Performed By: #### T SH3, ESR, ADDONUAPLUS, PP, CRP, T4F, CMP, CK, CBC ####[place] [address] [address]#### ALDOLASE, UPE RAND, MYOG, SPE, SYMONE,URINE, RPR W RFX, SYMONE SERUM ####[facility] , Creatinine [Mass/Vol] 0.66 mg/dL Normal 0.60-1.20 [facility] Comment on above: Performed By: #### T SH3, ESR, ADDONUAPLUS, PP, CRP, T4F, CMP, CK, CBC ####[place] [address] [address]#### ALDOLASE, UPE RAND, MYOG, SPE, SYMONE,URINE, RPR W RFX, SYMONE SERUM ####[facility] , GFR/1.73 sq M.predicted MDRD (S/P/Bld) [Vol rate/Area] mL/min/{1.73_m2} Normal [facility] Comment on above: Performed By: #### T SH3, ESR, ADDONUAPLUS, PP, CRP, T4F, CMP, CK, CBC ####[place] [address] [place]#### ALDOLASE, UPE RAND, MYOG, SPE, SYMONE,URINE, RPR W RFX, SYMONE SERUM ####[facility] , Globulin (S) [Mass/Vol] 2.8 g/dL Normal [facility] Comment on above: Performed By: #### T SH3, ESR, ADDONUAPLUS, PP, CRP, T4F, CMP, CK, CBC ####[place] [address] [address]#### ALDOLASE, UPE RAND, MYOG, SPE, SYMONE,URINE, RPR W RFX, SYMONE SERUM ####[facility] , Glucose [Mass/Vol] 77 mg/dL Normal 70-100 [facility] Comment on above: Result Comment: [place] om Glucose Reference Range is dependent on time and content of last meal. Glucose of more than 200 mg/dL in a nonstressed, ambulatory subject supports the diagnosis of Diabetes Mellitus. ADA recommended reference range Performed By: #### T SH3, ESR, ADDONUAPLUS, PP, CRP, T4F, CMP, CK, CBC ####[place] [address] [address]#### ALDOLASE, UPE RAND, MYOG, SPE, SYMONE,URINE, RPR W RFX, SYMONE SERUM ####[facility] , Potassium [Moles/Vol] 4.3 mmol/L Normal 3.5-5.1 [facility] Comment on above: Performed By: #### T SH3, ESR, ADDONUAPLUS, PP, CRP, T4F, CMP, CK, CBC ####[place] [address] [address]#### ALDOLASE, UPE RAND, MYOG, SPE, SYMONE,URINE, RPR W RFX, SYMONE SERUM ####[facility] , Protein [Mass/Vol] 7.5 g/dL Normal 6.0-8.5 [facility] Comment on above: Performed By: #### T SH3, ESR, ADDONUAPLUS, PP, CRP, T4F, CMP, CK, CBC ####[place] [address] [address]#### ALDOLASE, UPE RAND, MYOG, SPE, SYMONE,URINE, RPR W RFX, SYMONE SERUM ####[facility] , Sodium [Moles/Vol] 141 mmol/L Normal 136-145 [facility] Comment on above: Performed By: #### T SH3, ESR, ADDONUAPLUS, PP, CRP, T4F, CMP, CK, CBC ####[address]#### ALDOLASE, UPE RAND, MYOG, SPE, SYMONE,URINE, RPR W RFX, SYMONE SERUM ####[facility] , Urea nitrogen [Mass/Vol] 12 mg/dL Normal 7-25 [facility] Comment on above: Performed By: #### T SH3, ESR, ADDONUAPLUS, PP, CRP, T4F, CMP, CK, CBC ####[address]#### ALDOLASE, UPE RAND, MYOG, SPE, SYMONE,URINE, RPR W RFX, SYMONE SERUM ####[facility] , Creatine Kinaseon 12-12-2024 CK [Catalytic activity/Vol] 122 U/L Normal 30-223 [facility] Comment on above: Result Comment: PERF ORMED BY: [facility] [address] [place] [place] [address] PATHOLOGIST MEDICAL EQUIPMENT REPAIR TECHNICIAN CARLOS KNAPP M.D. Performed By: #### T SH3, ESR, ADDONUAPLUS, PP, CRP, T4F, CMP, CK, CBC ####[address]#### ALDOLASE, UPE RAND, MYOG, SPE, SYMONE,URINE, RPR W RFX, SYMONE SERUM ####[facility] , Creatine kinase [Enzymatic a ctivity/volume] in Serum or PlasmaOrdered By: Jacob Baker on 12-12-2024 CK [Catalytic activity/Vol] Creatine kinase [Enzymatic activity/volume] in Serum or Plasma 30-223 [facility] Creatinine [Mass/volume] in Serum or PlasmaOrdered By: Jacob Baker on 12-12-2024 Creatinine [Mass/Vol] Creatinine [Mass/volume] in Serum or Plasma 0.60-1.20 [facility] Cyclic Citrulliated Pep Abon 12-12-2024 Cyclic Citrulliated Pep Ab 7 Normal 0-19 [facility] Comment on above: Result Comment: Nega tive <20 Weak positive 20 - 39 Moderate positive 40 - 59 Strong positive >59 Performed at: [facility] [address] [id number] Control Room Tender: Santy Storey PhD, Phone: [phone] Performed By: #### M G, ESR, CMP, HS TROP, PTT, TSH3, T4F, ETOH, PT #### [facility] [place] [facility] [address] DNA double strand Ab [Units/ volume] in SerumOrdered By: Jacob Baker on 12-12-2024 DNA double strand Ab Qn (S) DNA double strand Ab [Units/volume] in Serum 0-9 [facility] Comment on above: Negative <5 Equivoca l 5 - 9 Positive >9 Dipstick and Microscopicon 0 12-12-2024 Appearance (U) Clear Normal Clear [facility] Comment on above: Order Comment: Name Collection Type:: Clean-Voided Midstream Performed By: #### T SH3, ESR, ADDONUAPLUS, PP, CRP, T4F, CMP, CK, CBC ####[facility] [address]#### ALDOLASE, UPE RAND, MYOG, SPE, SYMONE,URINE, RPR W RFX, SYMONE SERUM ####[facility] , Bacteria,Urine None Seen Normal None Seen [facility] Comment on above: Order Comment: Name Collection Type:: Clean-Voided Midstream Performed By: #### T SH3, ESR, ADDONUAPLUS, PP, CRP, T4F, CMP, CK, CBC ####[place] [id number] [address]#### ALDOLASE, UPE RAND, MYOG, SPE, SYMONE,URINE, RPR W RFX, SYMONE SERUM ####[facility] , Bilirubin,Urine Negative Normal Negative [facility] Comment on above: Order Comment: Name Collection Type:: Clean-Voided Midstream Performed By: #### T SH3, ESR, ADDONUAPLUS, PP, CRP, T4F, CMP, CK, CBC ####[address]#### ALDOLASE, UPE RAND, MYOG, SPE, SYMONE,URINE, RPR W RFX, SYMONE SERUM ####[facility] , Color (U) Light-Yellow Normal Yellow [facility] Comment on above: Order Comment: Name Collection Type:: Clean-Voided Midstream Performed By: #### T SH3, ESR, ADDONUAPLUS, PP, CRP, T4F, CMP, CK, CBC ####[address]#### ALDOLASE, UPE RAND, MYOG, SPE, SYMONE,URINE, RPR W RFX, SYMONE SERUM ####[facility] , Glucose Ql (U) Normal Normal Normal [facility] Comment on above: Order Comment: Name Collection Type:: Clean-Voided Midstream Performed By: #### T SH3, ESR, ADDONUAPLUS, PP, CRP, T4F, CMP, CK, CBC ####[address]#### ALDOLASE, UPE RAND, MYOG, SPE, SYMONE,URINE, RPR W RFX, SYMONE SERUM ####[facility] , Hyaline Casts,Urine None Normal 0-8 [facility] Comment on above: Order Comment: Name Collection Type:: Clean-Voided Midstream Performed By: #### T SH3, ESR, ADDONUAPLUS, PP, CRP, T4F, CMP, CK, CBC ####[address]#### ALDOLASE, UPE RAND, MYOG, SPE, SYMONE,URINE, RPR W RFX, SYMONE SERUM ####[facility] , Ketones Ql (U) Negative Normal Negative [facility] Comment on above: Order Comment: Name Collection Type:: Clean-Voided Midstream Performed By: #### T SH3, ESR, ADDONUAPLUS, PP, CRP, T4F, CMP, CK, CBC ####[address]#### ALDOLASE, UPE RAND, MYOG, SPE, SYMONE,URINE, RPR W RFX, SYMONE SERUM ####[facility] , Leukocyte esterase Test strip Ql (U) Negative Normal Negative [facility] Comment on above: Order Comment: Name Collection Type:: Clean-Voided Midstream Performed By: #### T SH3, ESR, ADDONUAPLUS, PP, CRP, T4F, CMP, CK, CBC ####[address]#### ALDOLASE, UPE RAND, MYOG, SPE, SYMONE,URINE, RPR W RFX, SYMONE SERUM ####[facility] , Mucus,Urine Rare Normal [facility] Comment on above: Order Comment: Name Collection Type:: Clean-Voided Midstream Result Comment: PERF ORMED BY: [facility] [address] [place] [address] PATHOLOGIST MEDICAL EQUIPMENT REPAIR TECHNICIAN CARLOS KNAPP M.D. Performed By: #### T SH3, ESR, ADDONUAPLUS, PP, CRP, T4F, CMP, CK, CBC ####[address]#### ALDOLASE, UPE RAND, MYOG, SPE, SYMONE,URINE, RPR W RFX, SYMONE SERUM ####[facility] , Nitrite,Urine Negative Normal Negative [facility] Comment on above: Order Comment: Name Collection Type:: Clean-Voided Midstream Performed By: #### T SH3, ESR, ADDONUAPLUS, PP, CRP, T4F, CMP, CK, CBC ####[address]#### ALDOLASE, UPE RAND, MYOG, SPE, SYMONE,URINE, RPR W RFX, SYMONE SERUM ####[facility] , Occult Blood,Urine Negative Normal Negative [facility] Comment on above: Order Comment: Name Collection Type:: Clean-Voided Midstream Performed By: #### T SH3, ESR, ADDONUAPLUS, PP, CRP, T4F, CMP, CK, CBC ####[address]#### ALDOLASE, UPE RAND, MYOG, SPE, SYMONE,URINE, RPR W RFX, SYMONE SERUM ####[facility] , pH (U) 6.5 [pH] Normal 5.0-9.0 [facility] Comment on above: Order Comment: Name Collection Type:: Clean-Voided Midstream Performed By: #### T SH3, ESR, ADDONUAPLUS, PP, CRP, T4F, CMP, CK, CBC ####[address]#### ALDOLASE, UPE RAND, MYOG, SPE, SYMONE,URINE, RPR W RFX, SYMONE SERUM ####[facility] , Protein,Urine Negative Normal Negative [facility] Comment on above: Order Comment: Name Collection Type:: Clean-Voided Midstream Performed By: #### T SH3, ESR, ADDONUAPLUS, PP, CRP, T4F, CMP, CK, CBC ####[address]#### ALDOLASE, UPE RAND, MYOG, SPE, SYMONE,URINE, RPR W RFX, SYMONE SERUM ####[facility] , RBC,Urine 1-2 Normal 0-4 [facility] Comment on above: Order Comment: Name Collection Type:: Clean-Voided Midstream Performed By: #### T SH3, ESR, ADDONUAPLUS, PP, CRP, T4F, CMP, CK, CBC ####[address]#### ALDOLASE, UPE RAND, MYOG, SPE, SYMONE,URINE, RPR W RFX, SYMONE SERUM ####[facility] , Specificy [place],Urine 1.005 Normal 1.001-1.030 [facility] Comment on above: Order Comment: Name Collection Type:: Clean-Voided Midstream Performed By: #### T SH3, ESR, ADDONUAPLUS, PP, CRP, T4F, CMP, CK, CBC ####[address]#### ALDOLASE, UPE RAND, MYOG, SPE, SYMONE,URINE, RPR W RFX, SYMONE SERUM ####[facility] , Squamous Epithelial Cell,Urine 1-2 Normal 0-2 [facility] Comment on above: Order Comment: Name Collection Type:: Clean-Voided Midstream Performed By: #### T SH3, ESR, ADDONUAPLUS, PP, CRP, T4F, CMP, CK, CBC ####[address]#### ALDOLASE, UPE RAND, MYOG, SPE, SYMONE,URINE, RPR W RFX, SYMONE SERUM ####[facility] , Urobilinogen,Urine Normal Normal Normal [facility] Comment on above: Order Comment: Name Collection Type:: Clean-Voided Midstream Performed By: #### T SH3, ESR, ADDONUAPLUS, PP, CRP, T4F, CMP, CK, CBC ####[address] [address] [place]#### ALDOLASE, UPE RAND, MYOG, SPE, SYMONE,URINE, RPR W RFX, SYMONE SERUM ####[facility] , WBC,Urine 1-2 Normal 0-4 [facility] Comment on above: Order Comment: Name Collection Type:: Clean-Voided Midstream Performed By: #### T SH3, ESR, ADDONUAPLUS, PP, CRP, T4F, CMP, CK, CBC ####[address]#### ALDOLASE, UPE RAND, MYOG, SPE, SYMONE,URINE, RPR W RFX, SYMONE SERUM ####[facility] , Eosinophils Auto (Bld) [#/Vo l]Ordered By: Jacob Baker on 12-12-2024 Eosinophils (Bld) [#/Vol] Automated eosinophil count 0.0-0.45 [facility] Eosinophils/100 WBC Auto (Bl d)Ordered By: Jacob Baker on 12-12-2024 Eosinophils/100 WBC (Bld) Automated eosinophil % . [facility] Epithelial cells.squamous [# /area] in Urine sediment by Automated countOrdered By: Jacob Baker on 12-12-2024 Epithelial cells.squamous Auto (Urine sed) [#/Area] Epithelial cells.squamous [#/area] in Urine sediment by Automated count 0-2 [facility] Erythrocyte Sedimentation Ra don 12-12-2024 ESR (Bld) [Velocity] 19 mm/h Normal 0-19 [facility] Comment on above: Result Comment: PERF ORMED BY: [facility] [address] [place] [address] PATHOLOGIST MEDICAL EQUIPMENT REPAIR TECHNICIAN CARLOS KNAPP M.D. Performed By: #### T SH3, ESR, ADDONUAPLUS, PP, CRP, T4F, CMP, CK, CBC ####[address]#### ALDOLASE, UPE RAND, MYOG, SPE, SYMONE,URINE, RPR W RFX, SYMONE SERUM ####[facility] , Erythrocyte distribution wid th Auto (RBC) [Ratio]Ordered By: Jacob Baker on 12-12-2024 Erythrocyte distribution width (RBC) [Ratio] Erythrocyte distribution width [Ratio] by Automated count 11.9-15.3 [facility] Erythrocyte sedimentation ra te by Photometric methodOrdered By: Jacob Baker on 12-12-2024 ESR Photometric method (Bld) [Velocity] Erythrocyte sedimentation rate by Photometric method 0-19 [facility] Erythrocytes [#/area] in Uri ne sediment by Automated countOrdered By: Jacob Baker on 12-12-2024 RBC Auto (Urine sed) [#/Area] Erythrocytes [#/area] in Urine sediment by Automated count 0-4 [facility] Free T4 (Free Thyroxine)on 0 12-12-2024 Free T4 [Mass/Vol] 0.84 ng/dL Normal 0.61-1.12 [facility] Comment on above: Performed By: #### T SH3, ESR, ADDONUAPLUS, PP, CRP, T4F, CMP, CK, CBC ####[facility] [id number]#### ALDOLASE, UPE RAND, MYOG, SPE, SYMONE,URINE, RPR W RFX, SYMONE SERUM ####[facility] , Globulin Calc (S) [Mass/Vol] Ordered By: Jacob Baker on 12-12-2024 Globulin (S) [Mass/Vol] Serum globulin measurement by calculation (mass/volume) [facility] Glucose [Mass/volume] in Ser um or PlasmaOrdered By: Jacob Baker on 12-12-2024 Glucose [Mass/Vol] Glucose [Mass/volume ] in Serum or Plasma 70-100 [facility] Comment on above: ADA recommended [...] [Mass/volume] in Urine by Test strip Normal [facility] Hematocrit Auto (Bld) [Volum e fraction]Ordered By: Jacob Baker on 12-12-2024 Hematocrit (Bld) [Volume fraction] Hematocrit [Volume Fraction] of Blood by Automated count 34.0-46.4 [facility] Hemoglobin Test strip Ql (U) Ordered By: Jacob Baker on 12-12-2024 Hemoglobin Ql (U) Hemoglobin [Presence ] in Urine by Test strip Negative [facility] Hemoglobin [Mass/volume] in BloodOrdered By: Jacob Baker on 12-12-2024 Hemoglobin (Bld) [Mass/Vol] Hemoglobin [Mass/volume] in Blood 11.8-15.4 [facility] Histone Antibodieson 025 Histone Antibodies 1.4 High 0.0-0.9 [facility] Comment on above: Result Comment: Nega tive <1.0 Weak Positive 1.0 - 1.5 Moderate Positive 1.6 - 2.5 Strong Positive >2.5 Performed at: - [facility] [id number] Control Room Tender: Anne Oro MD, Phone: [phone] Performed By: #### M G, ESR, CMP, HS TROP, PTT, TSH3, T4F, ETOH, PT #### [address] Hyaline casts [#/area] in Ur ine sediment by Automated countOrdered By: Jacob Baker on 12-12-2024 Hyaline casts Auto (Urine sed) [#/Area] Hyaline casts [#/area] in Urine sediment by Automated count 0-8 [facility] INR in Platelet poor plasma by Coagulation assayOrdered By: Jacob Baker on 12-12-2024 INR Coag (PPP) [Relative time] INR in Platelet poor plasma by Coagulation assay [facility] Comment on above: INR Therapeutic [...] Immunofixation (U) [Interp] Immunofixation for Urine . [facility] Comment on above: No monoclonality det ected.Performed at: [facility] [id number] Director: Santy Storey PhD, Phone: [phone] Immunofixation, (SYMONE), Urine on 12-12-2024 Immunofixation, (SYMONE), Urine Comment Normal . [facility] Comment on above: Result Comment: No m onoclonality detected. Performed at: [facility] [address] [id number] Control Room Tender: Santy Storey PhD, Phone: [phone] Performed By: #### T SH3, ESR, ADDONUAPLUS, PP, CRP, T4F, CMP, CK, CBC ####[facility] [id number]#### ALDOLASE, UPE RAND, MYOG, SPE, SYMONE,URINE, RPR W RFX, SYMONE SERUM ####[facility] , Immunofixation,Serumon 12-12 Immunofixation, Serum Comment Normal . [facility] Comment on above: Result Comment: No m onoclonality detected. Performed By: #### T SH3, ESR, ADDONUAPLUS, PP, CRP, T4F, CMP, CK, CBC ####[place] [id number] [address]#### ALDOLASE, UPE RAND, MYOG, SPE, SYMONE,URINE, RPR W RFX, SYMONE SERUM ####[facility] , Immunoglobulin A, Serum 262 mg/dL Normal 87-352 [facility] Comment on above: Performed By: #### T SH3, ESR, ADDONUAPLUS, PP, CRP, T4F, CMP, CK, CBC ####[facility]#### ALDOLASE, UPE RAND, MYOG, SPE, SYMONE,URINE, RPR W RFX, SYMONE SERUM ####[facility] , Immunoglobulin G 935 mg/dL Normal [phone] [facility] Comment on above: Performed By: #### T SH3, ESR, ADDONUAPLUS, PP, CRP, T4F, CMP, CK, CBC ####[facility]#### ALDOLASE, UPE RAND, MYOG, SPE, SYMONE,URINE, RPR W RFX, SYMONE SERUM ####[facility] , Immunoglobulin M, Serum 110 mg/dL Normal 26-217 [facility] Comment on above: Result Comment: Perf ormed at: CB [facility] [place] [id number] Control Room Tender: Satny Storey PhD, Phone: [phone] Performed By: #### T SH3, ESR, ADDONUAPLUS, PP, CRP, T4F, CMP, CK, CBC ####[address]#### ALDOLASE, UPE RAND, MYOG, SPE, SYMONE,URINE, RPR W RFX, SYMONE SERUM ####[facility] , ES-1 Antibodyon 12-12-2024 ES-1 Antibody <0.2 Normal 0.0-0.9 [facility] Comment on above: Performed By: #### M G, ESR, CMP, HS TROP, PTT, TSH3, T4F, ETOH, PT #### [facility] [address] Ketones Test strip Ql (U)Ord ered By: Jacob Baker on 12-12-2024 Ketones Ql (U) Ketones [Presence] i n Urine by Test strip Negative [facility] Leukocyte esterase [Presence ] in Urine by Test stripOrdered By: Jacob Baker on 12-12-2024 Leukocyte esterase Test strip Ql (U) Leukocyte esterase [Presence] in Urine by Test strip Negative [facility] Leukocytes [#/area] in Urine sediment by Automated countOrdered By: Jacob Baker on 12-12-2024 WBC Auto (Urine sed) [#/Area] Leukocytes [#/area] in Urine sediment by Automated count 0-4 [facility] Leukocytes [#/volume] correc caitlin for nucleated erythrocytes in Blood by Automated counOrdered By: Jacob Baker on 12-12-2024 WBC corrected for nucl RBC Auto (Bld) [#/Vol] Leukocytes [#/volume] corrected for nucleated erythrocytes in Blood by Automated coun 3.8-11.6 [facility] Lupus Anticoagulant Compon 0 12-12-2024 Dilute Prothrombin Time (dPt) 28.5 Normal 0.0-47.6 [facility] Comment on above: Performed By: #### M G, ESR, CMP, HS TROP, PTT, TSH3, T4F, ETOH, PT #### [address] dPT Confirm Ratio 1.09 Normal 0.00-1.34 [facility] Comment on above: Performed By: #### M G, ESR, CMP, HS TROP, PTT, TSH3, T4F, ETOH, PT #### [address] DRVVT Lupus 29.9 Normal 0.0-47.0 [facility] Comment on above: Performed By: #### M G, ESR, CMP, HS TROP, PTT, TSH3, T4F, ETOH, PT #### [address] Interpretation Comment: Normal . [facility] Comment on above: Result Comment: No l upus anticoagulant was detected. Performed at: [facility] [address] [id number] Control Room Tender: Anne Oro MD, Phone: [phone] PERFORMED BY: [place] [address] PATHOLOGIST MEDICAL EQUIPMENT REPAIR TECHNICIAN CARLOS KNAPP M.D. Performed By: #### M G, ESR, CMP, HS TROP, PTT, TSH3, T4F, ETOH, PT #### [facility] [address] PTT-LA 26.0 Normal 0.0-43.5 [facility] Comment on above: Performed By: #### M G, ESR, CMP, HS TROP, PTT, TSH3, T4F, ETOH, PT #### [facility] [address] Thrombin Time 17.0 Normal 0.0-23.0 [facility] Comment on above: Performed By: #### M G, ESR, CMP, HS TROP, PTT, TSH3, T4F, ETOH, PT #### [facility] [address] Lupus anticoagulant [Interpr etation] in Platelet poor plasmaOrdered By: Jacob Baker on 12-12-2024 Lupus anticoagulant (PPP) [Interp] Lupus anticoagulant [Interpretation] in Platelet poor plasma . [facility] Comment on above: No lupus anticoagula nt was detected.Performed at: - [facility] [id number] Director: Anne Oro MD, Phone: [phone] Lymphocytes Auto (Bld) [#/Vo l]Ordered By: Jacob Baker on 12-12-2024 Lymphocytes (Bld) [#/Vol] Lymphocytes [#/volume] in Blood by Automated count 1.00-4.8 [facility] Lymphocytes/100 WBC Auto (Bl d)Ordered By: Jacob Baker on 12-12-2024 Lymphocytes/100 WBC (Bld) Lymphocytes/100 leukocytes in Blood by Automated count . [facility] MCH Auto (RBC) [Entitic mass ]Ordered By: Jacob Baker on 12-12-2024 MCH (RBC) [Entitic mass] MCH [Entitic mass] by Automated count 24.7-34.3 [facility] MCHC Auto (RBC) [Mass/Vol]Or dered By: Jacob Baker on 12-12-2024 MCHC (RBC) [Mass/Vol] MCHC [Mass/volume] by Automated count 32.0-35.0 [facility] MCV Auto (RBC) [Entitic vol] Ordered By: Jacob Baker on 12-12-2024 MCV (RBC) [Entitic vol] MCV [Entitic volume] by Automated count 80-100 [facility] Monocytes Auto (Bld) [#/Vol] Ordered By: Jacob Baker on 12-12-2024 Monocytes (Bld) [#/Vol] Automated blood monocyte count 0.0-0.8 [facility] Monocytes/100 WBC Auto (Bld) Ordered By: Jacob Baker on 12-12-2024 Monocytes/100 WBC (Bld) Automated monocyte % . [facility] Mucus [Presence] in Urine by AutomatedOrdered By: Jacob Baker on 12-12-2024 Mucus Auto Ql (U) Mucus [Presence] in Urine by Automated [facility] Myoglobinon 12-12-2024 Myoglobin [Mass/Vol] ng/mL Low 25-58 [facility] Comment on above: Result Comment: Perf ormed at: CB - [facility] [place] [id number] Control Room Tender: Santy Storey PhD, Phone: [phone] Performed By: #### T SH3, ESR, ADDONUAPLUS, PP, CRP, T4F, CMP, CK, CBC ####[facility] [id number]#### ALDOLASE, UPE RAND, MYOG, SPE, SYMONE,URINE, RPR W RFX, SYMONE SERUM ####[facility] , Neutrophils Auto (Bld) [#/Vo l]Ordered By: Jacob Baker on 12-12-2024 Neutrophils (Bld) [#/Vol] Neutrophils [#/volume] in Blood by Automated count 1.8-7.7 [facility] Neutrophils/100 WBC Auto (Bl d)Ordered By: Jacob Baker on 12-12-2024 Neutrophils/100 WBC (Bld) Automated neutrophil % . [facility] Nitrite Test strip Ql (U)Ord ered By: Jacob Baker on 12-12-2024 Nitrite Ql (U) Nitrite [Presence] i n Urine by Test strip Negative [facility] No Panel InformationOrdered By: Jacob Baker on 12-12-2024 Estimated GFR (CKD-EPI) > 60.0 mL/Min [facility] Pharmacy Creatinine Clearance (Chem N/A [facility] Protein Electrophoresis M-Vincent Not observed g/dL Not Observed [facility] Protein Electrophoresis Note Comment . [facility] Comment on above: Protein electrophore sis scan will follow via computer,mail, or access manager delivery.Performed at: [facility] [id number] Director: Santy Storey PhD, Phone: [phone] Urine Random Prot Electrophor Note Comment . [facility] Comment on above: Protein electrophore sis scan will follow via computer,mail, or access manager delivery. Nucleated erythrocytes [Pres ence] in Blood by Automated countOrdered By: Jaocb Baker on 12-12-2024 Nucleated RBC Auto Ql (Bld) Nucleated erythrocytes [Presence] in Blood by Automated count 0-0.5 [facility] Plasma thrombin timeOrdered By: Jacob Baker on 12-12-2024 Thrombin time Coag (PPP) [Time] TT plas 0.0-23.0 [facility] Platelet mean volume Auto (B ld) [Entitic vol]Ordered By: Jacob Baker on 12-12-2024 Platelet mean volume (Bld) [Entitic vol] Platelet mean volume [Entitic volume] in Blood by Automated count 6.3-10.7 [facility] Platelet poor plasma ratio o f lupus anticoagulant-sensitive activated partial thromboOrdered By: Jacob Baker on 12-12-2024 aPTT.lupus sensitive.excess phospholipid actual/normal Coag (PPP) [Relative time] Platelet poor plasma ratio of lupus anticoagulant-sensitive activated partial thrombo 0.0-47.6 [facility] Platelets Auto (Bld) [#/Vol] Ordered By: Jacob Baker on 12-12-2024 Platelets (Bld) [#/Vol] Platelets [#/volume] in Blood by Automated count 150-450 [facility] Potassium [Moles/volume] in Serum or PlasmaOrdered By: Jacob Baker on 12-12-2024 Potassium [Moles/Vol] Potassium [Moles/volume] in Serum or Plasma 3.5-5.1 [facility] Protein Electro, Random Urin trent 12-12-2024 Albumin, Urine 21.6 % Normal . [facility] Comment on above: Performed By: #### T SH3, ESR, ADDONUAPLUS, PP, CRP, T4F, CMP, CK, CBC ####[address]#### ALDOLASE, UPE RAND, MYOG, SPE, SYMONE,URINE, RPR W RFX, SYMONE SERUM ####[facility] , Cqswq-7-Vfmbtgve, Urine 7.6 % Normal . [facility] Comment on above: Performed By: #### T SH3, ESR, ADDONUAPLUS, PP, CRP, T4F, CMP, CK, CBC ####[address]#### ALDOLASE, UPE RAND, MYOG, SPE, SYMONE,URINE, RPR W RFX, SYMONE SERUM ####[facility] , Spexl-3-Edhdqkqe, Urine 12.8 % Normal . [facility] Comment on above: Performed By: #### T SH3, ESR, ADDONUAPLUS, PP, CRP, T4F, CMP, CK, CBC ####[address]#### ALDOLASE, UPE RAND, MYOG, SPE, SYMONE,URINE, RPR W RFX, SYMONE SERUM ####[facility] , Beta Globulin, Urine 40.6 % Normal . [facility] Comment on above: Performed By: #### T SH3, ESR, ADDONUAPLUS, PP, CRP, T4F, CMP, CK, CBC ####[address]#### ALDOLASE, UPE RAND, MYOG, SPE, SYMONE,URINE, RPR W RFX, SYMONE SERUM ####[facility] , Gamma Globulin, Urine 17.5 % Normal . [facility] Comment on above: Performed By: #### T SH3, ESR, ADDONUAPLUS, PP, CRP, T4F, CMP, CK, CBC ####[address]#### ALDOLASE, UPE RAND, MYOG, SPE, SYMONE,URINE, RPR W RFX, SYMONE SERUM ####[facility] , M-Vincent % Not Observed Normal Not Observed [facility] Comment on above: Performed By: #### T SH3, ESR, ADDONUAPLUS, PP, CRP, T4F, CMP, CK, CBC ####[address]#### ALDOLASE, UPE RAND, MYOG, SPE, SYMONE,URINE, RPR W RFX, SYMONE SERUM ####[facility] , Please Note: Comment Normal . [facility] Comment on above: Result Comment: Prot ein electrophoresis scan will follow via computer, mail, or access manager delivery. PERFORMED BY: [facility] [address] [place] [address] PATHOLOGIST MEDICAL EQUIPMENT REPAIR TECHNICIAN CARLOS KNAPP M.D. Performed By: #### T SH3, ESR, ADDONUAPLUS, PP, CRP, T4F, CMP, CK, CBC ####[address]#### ALDOLASE, UPE RAND, MYOG, SPE, SYMONE,URINE, RPR W RFX, SYMONE SERUM ####[facility] , Protein (U) [Mass/Vol] mg/dL Normal Not Estab. [facility] Comment on above: Result Comment: Ve rified by repeat analysis Performed By: #### T SH3, ESR, ADDONUAPLUS, PP, CRP, T4F, CMP, CK, CBC ####[address] [place] [address] [place]#### ALDOLASE, UPE RAND, MYOG, SPE, SYMONE,URINE, RPR W RFX, SYMONE SERUM ####[facility] , Protein Electrophoresis, Ser umon 12-12-2024 Albumin [Mass/Vol] 4.1 g/dL Normal 2.9-4.4 [facility] Comment on above: Performed By: #### T SH3, ESR, ADDONUAPLUS, PP, CRP, T4F, CMP, CK, CBC ####[address]#### ALDOLASE, UPE RAND, MYOG, SPE, SYMONE,URINE, RPR W RFX, SYMONE SERUM ####[facility] , Albumin/Globulin [Mass ratio] 1.2 {ratio} Normal 0.7-1.7 [facility] Comment on above: Performed By: #### T SH3, ESR, ADDONUAPLUS, PP, CRP, T4F, CMP, CK, CBC ####[address]#### ALDOLASE, UPE RAND, MYOG, SPE, SYMONE,URINE, RPR W RFX, SYMONE SERUM ####[facility] , Wesya-5-Qfkegcrc 0.3 g/dL Normal 0.0-0.4 [facility] Comment on above: Performed By: #### T SH3, ESR, ADDONUAPLUS, PP, CRP, T4F, CMP, CK, CBC ####[address]#### ALDOLASE, UPE RAND, MYOG, SPE, SYMONE,URINE, RPR W RFX, SYMONE SERUM ####[facility] , Tzakt-2-Gfrmryvp 0.9 g/dL Normal 0.4-1.0 [facility] Comment on above: Performed By: #### T SH3, ESR, ADDONUAPLUS, PP, CRP, T4F, CMP, CK, CBC ####[place] [address] [place]#### ALDOLASE, UPE RAND, MYOG, SPE, SYMONE,URINE, RPR W RFX, SYMONE SERUM ####[facility] , Beta Globulin 1.2 g/dL Normal 0.7-1.3 [facility] Comment on above: Performed By: #### T SH3, ESR, ADDONUAPLUS, PP, CRP, T4F, CMP, CK, CBC ####[address]#### ALDOLASE, UPE RAND, MYOG, SPE, SYMONE,URINE, RPR W RFX, SYMONE SERUM ####[facility] , Gamma Globulin 1.0 g/dL Normal 0.4-1.8 [facility] Comment on above: Performed By: #### T SH3, ESR, ADDONUAPLUS, PP, CRP, T4F, CMP, CK, CBC ####[address]#### ALDOLASE, UPE RAND, MYOG, SPE, SYMONE,URINE, RPR W RFX, SYMONE SERUM ####[facility] , Globulin (S) [Mass/Vol] 3.4 g/dL Normal 2.2-3.9 [facility] Comment on above: Performed By: #### T SH3, ESR, ADDONUAPLUS, PP, CRP, T4F, CMP, CK, CBC ####[place] [address] [place]#### ALDOLASE, UPE RAND, MYOG, SPE, SYMONE,URINE, RPR W RFX, SYMONE SERUM ####[facility] , M-Vincent Not Observed Normal Not Observed [facility] Comment on above: Performed By: #### T SH3, ESR, ADDONUAPLUS, PP, CRP, T4F, CMP, CK, CBC ####[place] [address] [place]#### ALDOLASE, UPE RAND, MYOG, SPE, SYMONE,URINE, RPR W RFX, SYMONE SERUM ####[facility] , SPE-Note Comment Normal . [facility] Comment on above: Result Comment: Prot ein electrophoresis scan will follow via computer, mail, or access manager delivery. Performed at: [facility] [address] [id number] Control Room Tender: Santy Storey PhD, Phone: [phone] Performed By: #### T SH3, ESR, ADDONUAPLUS, PP, CRP, T4F, CMP, CK, CBC ####[facility] [id number]#### ALDOLASE, UPE RAND, MYOG, SPE, SYMONE,URINE, RPR W RFX, SYMONE SERUM ####[facility] , Protein Test strip (U) [Mass /Vol]Ordered By: Jacob Baker on 12-12-2024 Protein (U) [Mass/Vol] Protein [Mass/vol ume] in Urine by Test strip Negative [facility] Protein [Mass/volume] in Ser um or PlasmaOrdered By: Jacob Baker on 12-12-2024 Protein [Mass/Vol] Protein [Mass/volume ] in Serum or Plasma 6.0-8.5 [facility] Prothrombin time (PT)Ordered By: Jacob Baker on 12-12-2024 PT Coag (PPP) [Time] Prothrombin time (PT) 9.0- 12.9 [facility] Comment on above: A hematocrit value g reater than 55% may lead to inaccurate results in coagulation testing. Patients having hematocrit values >55% require a special collection tube for coagulation studies. Please contact the laboratory at [phone] for redraw instructions. RBC Auto (Bld) [#/Vol]Ordere d By: Jacob Baker on 12-12-2024 RBC (Bld) [#/Vol] Erythrocytes [#/volu me] in Blood by Automated count 3.60-5.00 [facility] RPR w/rfx to Quant TP Abson 12-12-2024 RPR, Rfx Quant RPR Non-Reactive Normal Non Reactive [facility] Comment on above: Result Comment: Perf ormed at: - [facility] [id number] Control Room Tender: Santy Storey PhD, Phone: [phone] PERFORMED BY: [facility] [address] [facility] [place] [address] PATHOLOGIST MEDICAL EQUIPMENT REPAIR TECHNICIAN CARLOS KNAPP M.D. Performed By: #### T SH3, ESR, ADDONUAPLUS, PP, CRP, T4F, CMP, CK, CBC ####[facility]#### ALDOLASE, UPE RAND, MYOG, SPE, SYMONE,URINE, RPR W RFX, SYMONE SERUM ####[facility] , Rheumatoid Factoron 12-13-19 Rheumatoid Factor <10.0 Normal <14.0 [facility] Comment on above: Result Comment: Perf ormed at: [facility] [id number] Control Room Tender: Santy Storey PhD, Phone: [phone] Performed By: #### A DNA, SJOGRENS, HELM, C3, HISAB, CCP, CHROMATIN, CENTROME, RA, CYNDI, [id number], JO1, B2 GLYPROT, ANTIR, CARDIO GMA, C4, CH50 ####[facility] , Ribonucleoprotein antibody a ssayOrdered By: Jacob Baker on 12-12-2024 RESPIRATORY SERVICES MANAGER Antibody <0.2 AI 0.0-0.9 [facility] Scl-70 antibody assayOrdered By: Jacob Baker on 12-12-2024 Scl-70 (Scleroderma) Antibody <0.2 AI 0.0-0.9 [facility] Scleroderma 70 Antibodieson 12-12-2024 Scleroderma 70 Antibodies <0.2 Normal 0.0-0.9 [facility] Comment on above: Performed By: #### M G, ESR, CMP, HS TROP, PTT, TSH3, T4F, ETOH, PT #### [facility] [address] Screening dilute Kuldip's v iper venom time (DRVVT) with reflex to confirmatory testOrdered By: Jacob Baker on 12-12-2024 dRVVT Coag (PPP) [Time] Screening dilute Kuldip's viper venom time (DRVVT) with reflex to confirmatory test 0.0-47.0 [facility] Screening lupus anticoagulan t-sensitive activated partial thromboplastin time (aPTT)Ordered By: Jacob Baker on 12-12-2024 aPTT.lupus sensitive Coag (PPP) [Time] Screening lupus anticoagulant-sensitive activated partial thromboplastin time (aPTT) 0.0-43.5 [facility] Serum Es-1 extractable nucle ar antibody assay (units/volume)Ordered By: Jacob Baker on 12-12-2024 Es-1 extractable nuclear Ab Qn (S) Serum Es-1 extractable nuclear antibody assay (units/volume) 0.0-0.9 [facility] Serum RPR testOrdered By: Stephany Baker on 12-12-2024 Reagin Ab RPR Ql (S) Reagin Ab [Presence ] in Serum by RPR Non Reactive [facility] Comment on above: Performed at: [facility] [address] [id number] Director: Santy Storey PhD, Phone: [phone] Serum Sjogrens syndrome-A ex tractable nuclear antibody assay (units/volume)Ordered By: Jacob Baker on 12-12-2024 Sjogrens syndrome-A extractable nuclear Ab Qn (S) Serum Sjogrens syndrome-A extractable nuclear antibody assay (units/volume) 0.0-0.9 [facility] Serum Sjogrens syndrome-B ex tractable nuclear antibody assay (units/volume)Ordered By: Jacob Baker on 12-12-2024 Sjogrens syndrome-B extractable nuclear Ab Qn (S) Serum Sjogrens syndrome-B extractable nuclear antibody assay (units/volume) 0.0-0.9 [facility] Serum Helm extractable nucl ear antigen (HERIBERTO) antibody assay (units/volume)Ordered By: Jacob Baker on 12-12-2024 Helm extractable nuclear Ab Qn (S) Serum Helm extractable nuclear antigen (HERIBERTO) antibody assay (units/volume) 0.0-0.9 [facility] Serum aldolase measurementOr dered By: Jacob Baker on 12-12-2024 Aldolase 4.2 U/L Normal 3.3-10.3 [facility] Comment on above: Performed at: [facility] [address] [id number] Director: Santy Storey PhD, Phone: [phone] Result Comment: Perf ormed at: [facility] [address] [id number] Control Room Tender: Santy Storey PhD, Phone: [phone] PERFORMED BY: [facility] [address] [place] [address] PATHOLOGIST MEDICAL EQUIPMENT REPAIR TECHNICIAN CARLOS KNAPP M.D. Performed By: #### T SH3, ESR, ADDONUAPLUS, PP, CRP, T4F, CMP, CK, CBC ####[facility] [id number] [address]#### ALDOLASE, UPE RAND, MYOG, SPE, SYMONE,URINE, RPR W RFX, SYMONE SERUM ####[facility] , Serum beta 2 glycoprotein 1 IgM antibody assay (units/volume)Ordered By: Jacob Baker on 12-12-2024 Beta 2 glycoprotein 1 IgM Qn (S) Beta 2 glycoprotein 1 IgM Ab [Units/volume] in Serum 0-32 [facility] Comment on above: Result Units: GPI Ig M unitsThe reference interval reflects a 3SD or 99th percentileinterval, which is thought to represent a potentiallyclinically significant result in accordance with theInternational Consensus Statement on the classificationcriteria for definitive antiphospholipid syndrome (APS). JThromb Haem 2006;4:295-306.Performed at: [facility] [address] [id number] Director: Santy Storey PhD, Phone: [phone] Serum cardiolipin IgA antibo dy assay by immunoassay (units/volume)Ordered By: Jacob Baker on 12-12-2024 Cardiolipin IgA IA Qn (S) Cardiolipin IgA Ab [Units/volume] in Serum by Immunoassay 0-11 [facility] Comment on above: Negative: <12 Indete rminate: 12 - 20 Low-Med Positive: >20 - 80 High Positive: >80 Serum cardiolipin IgG antibo dy assay by immunoassay (units/volume)Ordered By: Jacob Baker on 12-12-2024 Cardiolipin IgG IA Qn (S) Cardiolipin IgG Ab [Units/volume] in Serum by Immunoassay 0-14 [facility] Comment on above: Negative: <15 Indete rminate: 15 - 20 Low-Med Positive: >20 - 80 High Positive: >80 Serum cardiolipin IgM antibo dy assay by immunoassay (units/volume)Ordered By: Jacob Baker on 12-12-2024 Cardiolipin IgM IA Qn (S) Cardiolipin IgM Ab [Units/volume] in Serum by Immunoassay 0-12 [facility] Comment on above: Negative: <13 Indete rminate: 13 - 20 Low-Med Positive: >20 - 80 High Positive: >80 Serum centromere protein B a ntibody assay (units/volume)Ordered By: Jacob Baker on 12-12-2024 Centromere protein B Ab Qn (S) Serum centromere protein B antibody assay (units/volume) 0.0-0.9 [facility] Comment on above: Performed at: [address] [id number] Director: Santy Storey PhD, Phone: [phone] Serum globulin measurement ( mass/volume)Ordered By: Jacob Baker on 12-12-2024 Globulin (S) [Mass/Vol] Serum globulin measurement (mass/volume) 2.2-3.9 [facility] Serum histone IgG antibody a ssay by immunoassay (units/volume)Ordered By: Jacob Baker on 12-12-2024 Histone IgG IA Qn (S) Serum histone IgG antibody assay by immunoassay (units/volume) High 0.0-0.9 [facility] Comment on above: Negative <1.0 Weak P ositive 1.0 - 1.5 Moderate Positive 1.6 - 2.5 Strong Positive >2.5Performed at: [facility] [id number] Director: Anne Oro MD, Phone: [phone] Serum immunofixation electro phoresisOrdered By: Jacob Baker on 12-12-2024 Serum Immunofixation Comment . [facility] Comment on above: No monoclonality det ected. Serum nuclear antibody titer Ordered By: Jacob Baker on 12-12-2024 Nuclear Ab (S) [Titer] Serum nuclear ant ibody titer . [facility] Comment on above: Negative <1:80 Borde rline 1:80 Positive >1:80ICAP nomenclature: AC-0For more information about Hep-2 cell patterns useANApatterns.org, the official website for theInternational Consensus on Antinuclear Antibody (CYNDI)Patterns (ICAP).Performed at: [facility] [address] [id number] Director: Santy Storey PhD, Phone: [phone] Serum or plasma IgA measurem ent (mass/volume)Ordered By: Jacob Baker on 12-12-2024 IgA [Mass/Vol] IgA [Mass/volume] in Serum or Plasma 87-352 [facility] Serum or plasma IgG measurem ent (mass/volume)Ordered By: Jacob Baker on 12-12-2024 IgG [Mass/Vol] IgG [Mass/volume] in Serum or Plasma [phone] [facility] Serum or plasma IgM measurem ent (mass/volume)Ordered By: Jacob Baker on 12-12-2024 IgM [Mass/Vol] IgM [Mass/volume] in Serum or Plasma 26-217 [facility] Comment on above: Performed at: [facility] [address] [id number] Director: Santy Storey PhD, Phone: [phone] Serum or plasma albumin audie urement (mass/volume)Ordered By: Jacob Baker on 12-12-2024 Albumin [Mass/Vol] Albumin [Mass/volume ] in Serum or Plasma 2.9-4.4 [facility] Serum or plasma albumin/glob ulin mass ratioOrdered By: Jacob Baker on 12-12-2024 Albumin/Globulin [Mass ratio] Serum or plasma albumin/globulin mass ratio 0.7-1.7 [facility] Serum or plasma alpha 1 glob ulin measurement by electrophoresis (mass/volume)Ordered By: Jacob Baker on 12-12-2024 Alpha 1 globulin Elph [Mass/Vol] Serum or plasma alpha 1 globulin measurement by electrophoresis (mass/volume) 0.0-0.4 [facility] Serum or plasma alpha 2 glob ulin measurement by electrophoresis (mass/volume)Ordered By: Jacob Baker on 12-12-2024 Alpha 2 globulin Elph [Mass/Vol] Serum or plasma alpha 2 globulin measurement by electrophoresis (mass/volume) 0.4-1.0 [facility] Serum or plasma anion gap de terminationOrdered By: Jacob Baker on 12-12-2024 Anion gap [Moles/Vol] Serum or plasma an ion gap determination 6.0-15.0 [facility] Serum or plasma beta globuli n measurement by electrophoresis (mass/volume)Ordered By: Jacob Baker on 12-12-2024 Beta globulin Elph [Mass/Vol] Serum or plasma beta globulin measurement by electrophoresis (mass/volume) 0.7-1.3 [facility] Serum or plasma chromatin an tibody assay (units/volume)Ordered By: Jacob Baker on 12-12-2024 Chromatin Ab Qn Serum or plasma chromatin antibody assay (units/volume) 0.0-0.9 [facility] Serum or plasma complement C 3 measurement (mass/volume)Ordered By: Jacob Baker on 12-12-2024 Complement C3 [Mass/Vol] Serum or plasma complement C3 measurement (mass/volume) 82-167 [facility] Serum or plasma complement C 4 measurement (mass/volume)Ordered By: Jacob Baker on 12-12-2024 Complement C4 [Mass/Vol] Serum or plasma complement C4 measurement (mass/volume) 12-38 [facility] Serum or plasma cyclic adeno sine monophosphate measurement (moles/volume)Ordered By: Jacob Baker on 12-12-2024 Adenosine monophosphate.cyclic [Moles/Vol] Serum or plasma cyclic adenosine monophosphate measurement (moles/volume) 0-19 [facility] Comment on above: Negative <20 Weak po sitive 20 - 39 Moderate positive 40 - 59 Strong positive >59Performed at: [facility] [address] [id number] Director: Santy Storey PhD, Phone: [phone] Serum or plasma gamma globul in measurement by electrophoresis (mass/volume)Ordered By: Jacob Baker on 12-12-2024 Gamma globulin Elph [Mass/Vol] Serum or plasma gamma globulin measurement by electrophoresis (mass/volume) 0.4-1.8 [facility] Serum or plasma myoglobin me asurement (mass/volume)Ordered By: Jacob Baker on 12-12-2024 Myoglobin [Mass/Vol] Serum or plasma myoglobin measurement (mass/volume) Low 25-58 [facility] Comment on above: Performed at: [facility] [address] [id number] Director: Santy Storey PhD, Phone: [phone] Serum or plasma rheumatoid f actor measurement (units/volume)Ordered By: Jacob Baker on 12-12-2024 Rheumatoid factor Qn Serum or plasma rheumatoid factor measurement (units/volume) <14.0 [facility] Comment on above: Performed at: [facility] [address] [id number] Director: Santy Storey PhD, Phone: [phone] Sjogrens Anti-SSA/SSBon 11-14 SS-A/Ro Sjogrens Antibody <0.2 Normal 0.0-0.9 [facility] Comment on above: Performed By: #### M G, ESR, CMP, HS TROP, PTT, TSH3, T4F, ETOH, PT #### [address] SS-B/La Sjogrens Antibody <0.2 Normal 0.0-0.9 [facility] Comment on above: Performed By: #### M G, ESR, CMP, HS TROP, PTT, TSH3, T4F, ETOH, PT #### [facility] [address] Sodium [Moles/volume] in Ser um or PlasmaOrdered By: Jacob Baker on 12-12-2024 Sodium [Moles/Vol] Sodium [Moles/volume ] in Serum or Plasma 136-145 [facility] Specific gravity Test strip (U) [Rel density]Ordered By: Jacob Baker on 12-12-2024 Specific gravity (U) [Rel density] Specific gravity of Urine by Test strip 1.001-1.030 [facility] Thyroid Stimulating Hormoneo n 12-12-2024 TSH Qn 0.91 m[IU]/L Normal 0.45-5.33 [facility] Comment on above: Result Comment: PERF ORMED BY: [facility] [address] [place] [address] PATHOLOGIST MEDICAL EQUIPMENT REPAIR TECHNICIAN CARLOS KNAPP M.D. Performed By: #### T SH3, ESR, ADDONUAPLUS, PP, CRP, T4F, CMP, CK, CBC ####[facility] [id number] [address]#### ALDOLASE, UPE RAND, MYOG, SPE, SYMONE,URINE, RPR W RFX, SYMONE SERUM ####[facility] , Thyrotropin [Units/volume] i n Serum or PlasmaOrdered By: Jacob Baker on 12-12-2024 TSH Qn Thyrotropin [Units/volume] in Serum or Plasma 0.45-5.33 [facility] Thyroxine (T4) free [Mass/vo lume] in Serum or PlasmaOrdered By: Jacob Baker on 12-12-2024 Free T4 [Mass/Vol] Thyroxine (T4) free [Mass/volume] in Serum or Plasma 0.61-1.12 [facility] Total hemolytic complement C H50 assayOrdered By: Jacob Baker on 12-12-2024 Total Complement (CH50) >60 U/mL >41 [facility] Comment on above: Age Male Female 1 [...] to determine out of range values.Performed at: - [facility] [id number] Director: Santy Storey PhD, Phone: [phone] Urea nitrogen [Mass/volume] in Serum or PlasmaOrdered By: Jacob Baker on 12-12-2024 Urea nitrogen [Mass/Vol] Urea nitrogen [Mass/volume] in Serum or Plasma 04-07 [facility] Urine alpha 1 globulin/total protein by electrophoresisOrdered By: Jacob Baker on 12-12-2024 Alpha 1 globulin Elph (U) [Mass fraction] Urine alpha 1 globulin/total protein by electrophoresis . [facility] Urine alpha 2 globulin/total protein ratio by electrophoresisOrdered By: Jacob Baker on 12-12-2024 Alpha 2 globulin Elph (U) [Mass fraction] Urine alpha 2 globulin/total protein ratio by electrophoresis . [facility] Urine beta globulin measurem ent by electrophoresis (mass/volume)Ordered By: Jacob Baker on 12-12-2024 Beta globulin Elph (U) [Mass/Vol] Urine beta globulin measurement by electrophoresis (mass/volume) . [facility] Urine protein measurement (m ass/volume)Ordered By: Jacob Baker on 12-12-2024 Protein (U) [Mass/Vol] Protein [Mass/vol ume] in Urine Not Estab. [facility] Comment on above: Verified by repeat analysis Urobilinogen Test strip (U) [Mass/Vol]Ordered By: Jacob Baker on 12-12-2024 Urobilinogen (U) [Mass/Vol] Urobilinogen [Mass/volume] in Urine by Test strip Normal [facility] WBC Auto (Bld) [#/Vol]Ordere d By: Jacob Baker on 12-12-2024 WBC (Bld) [#/Vol] Leukocytes [#/volume ] in Blood by Automated count 3.8-11.6 [facility] aPTT in Platelet poor plasma by Coagulation assayOrdered By: Jacob Baker on 12-12-2024 aPTT Coag (PPP) [Time] Activated partial thromboplastin time (aPTT) in platelet poor plasma by coagulation a 25.1-36.5 [facility] Comment on above: A hematocrit value g reater than 55% may lead to inaccurate results in coagulation testing. Patients having hematocrit values >55% require a special collection tube for coagulation studies. Please contact the laboratory at [phone] for redraw instructions. aPTT.lupus sensitive/aPTT.babs pus sensitive W excess phospholipid (screen to confirm raOrdered By: Jacob Baker on 12-12-2024 aPTT.lupus sensitive/aPTT.lupus sensitive W excess phospholipid Coag (PPP) [Ratio] aPTT.lupus sensitive/aPTT.lupus sensitive W excess phospholipid (screen to confirm ra 0.00-1.34 [facility] pH Test strip (U)Ordered By: Jacob Baker on 12-12-2024 pH (U) pH of Urine by Test strip 5.0-9.0 [facility] US Abdomen, Limitedon 2024 US Abdomen, Limited [...] Durand FINAL REPORT Dictated: 11/30/2024 12:17 pm Signer Julio BHAKTA Signed (Electronic Signature): 11/30/2024 12:17 pm Signed by: Julio Snyder MD Transcribed by: MARCO Technologist: KELLY Walters [facility] Main OR Intraoperative Recor don 11-28-2024 Main OR Intraoperative Record Main OR Intraoperative Record IntraOp Document Type FTPM Summary Primary Physician: Babar Mayers DO Finalized Date/Time: 11/28/24 10:21:25 Pt. Name: SHAZIA CHOU Isreal HebertB./Sex: 1990 Female Med Rec #: [id number] Physician: Babar Mayers DO Financial #: [id number] Pt. Type: P Room/Bed: / Admit/Disch: 11/28/24 08:59:53 - Institution: Case Times FTPM Entry 1 Patient Times In Room 11/28/24 10:16:00 Out Room 11/28/24 10:22:00 Procedure Times Start 11/28/24 10:19:00 Stop 11/28/24 10:21:00 Anesthesia Times Last Modified By: Lulu Burrows RN 11/28/24 10:21:12 Case Attendance FTPM Entry 1 Entry 2 Entry 3 Case Attendee Babar Mayers DO, RN, Lulu Rodas RN, Nolvia Fallon Role Performed Surgeon - Primary Intern Retail - Primary Scrub - Primary Time In 11/28/24 10:16:00 11/28/24 10:16:00 11/28/24 10:16:00 Time Out 11/28/24 10:22:00 11/28/24 10:22:00 11/28/24 10:22:00 Procedure TRANSFORAMINAL EPIDURAL TRANSFORAMINAL EPIDURAL TRANSFORAMINAL EPIDURAL STEROID INJECTIO(Left) STEROID INJECTIO(Left) STEROID INJECTIO(Left) Comments Last Modified By: Markos LARA, Lulu Burrows RN, Lulu Mercer RN 11/28/24 10:21:12 11/28/24 10:21:12 11/28/24 10:21:12 Entry 4 Case Attendee Sofy Mix Role Performed Surgical Instrument Mechanic Time In 11/28/24 10:16:00 Time Out 11/28/24 [...] Out Lulu Burrows RN, Given Participants Clark LARA, Talib De La Garza DO, Bradford A., [...] and tissue Entry 1 Skin Integrity Intact, [place], Warm, & Skin Abnormality No Dry Outcomes [...] Large Under (more content not included)... Normal [facility] Main OR Preoperative Recordo n 11-28-2024 Main OR Preoperative Record Main OR Preoperative Record Holding Area Document Type FTPM Summary Primary Physician: Babar Mayers DO Finalized Date/Time: 11/28/24 09:16:26 Pt. Name: SHAZIA CHOU/Sex: 1990 Female Med Rec #: [id number] Physician: Babar Mayers DO Financial #: [id number] Pt. Type: P Room/Bed: / Admit/Disch: 11/28/24 [...] 09:04 Gabrielle Sultana RN 11/28/24 09:16 Normal [facility] MRI Spine Lumbar w/o Contras ton 11-12-2024 [...] REPORT Dictated: 11/12/2024 10:38 am Roberto You MD. Signed (Electronic Signature): 11/12/2024 10:38 am Signed by: Roberto You MD Transcribed by: MARCO Technologist: MANDI Normal [facility] Nonvisit Note - PTon 025 Nonvisit Note - PT Nonvisit Note - PT -per and her insurance will not cover. Normal [facility] Nonvisit Note - PTon 025 Nonvisit Note - PT Nonvisit Note - PT hSazia called to cancel her remaining appointments. She said per request of her doctor and insurance will not cover it Normal [facility] Nonvisit Note - PTon 025 Nonvisit Note - PT Nonvisit Note - PT - pt is having issues with her insurance and wants to figure it out first Normal [facility] XR Spine Lumbosacral Minimum 4 Viewson 11-03-2024 [...] Francisco Pena Transcribed by: MARCO Technologist: [facility] XR Femur Min 2 Views Lefton 11-02-2024 XR Femur Min 2 Views Left Exam Date/Time: 11/02/2024 07:56 EST Reason for Exam: M54.42 Report IMPRESSION: NEGATIVE LEFT FEMUR. CLINICAL HISTORY: M54.42 COMPARISON: None available. FINDINGS: AP and lateral views of the left femur demonstrate no evidence of a fracture or other bone abnormality. Ordering Provider: Jennie Durand FINAL REPORT Dictated: 11/02/2024 3:12 pm SignJulio pelayo MD Signed (Electronic Signature): 11/02/2024 3:12 pm Signed by: Julio Snyder MD Transcribed by: MARCO Technologist: [facility] Nonvisit Note - PTon 025 Nonvisit Note - PT Nonvisit Note - PT Chart reviewed with eval prepped for scheduled eval. [facility] ED Clinical Summaryon 2024 ED Clinical Summary ED Clinical Summary [place] [id number] ED Clinical Summary Person Information Name: SHAZIA CHOU [facility] Age: 33 Years : 1990 Sex: Female Language: Romanian PCP: KURT BALBUENA CNP Marital Status: Visit [...] 10/18/2024 08:40:02 10/18/2024 08:40:02 10/18/2024 08:40:02 ADDRESS: [address] [place] [phone] PHYS DOC NOTES: MEDICAL INFORMATION: Prescriptions Given: New Medications [id number], [address], [place] [phone], [phone] methocarbamol (Robaxin-750 oral tablet) 2 Tablets By [...] up: With: Address: When: KURT BALBUENA [address], [place] [phone] Business (1) In 3 days 10/21/2024 DIAGNOSIS: Chronic pain Normal [facility] ED Note-Physicianon 10-18-19 ED Note-Physician ED Note-Physician [...] day(s), # 18 tab(s), Refills(s) 0, Pharmacy: [facility]/pharmacy #[id number], 170, cm, 10/18/24 8:12:00 EST, Height/Length Dosing, 90, kg, 10/18/24 8:12:00 EST, Weight Dosing predniSONE, 60 mg = 3 tab(s), Oral, Daily, X 7 day(s), # 21 tab(s), Refills(s) 0, Pharmacy: [facility]/pharmacy #[id number], 170, cm, 10/18/24 8:12:00 EST, Height/Length [...] BALBUENA In 3 days 10/21/2024 EST [address] [place] [phone] Business (1) Additional Instructions: Patient [...] made to ensure accuracy, however, inadvertently computerized flume ride operator mistakes may be present. Appropriate healthcare [...] Procedure/Surgical H (more content not included)... Normal [facility] Comment on above: Result Comment: Elec tronically Signed By: Beto Shea PA-C\.br\Date and Time Signed: 10/18/24 09:04 EST\.br\Electronically Co-Signed By: Jose Correia M.D.\.br\Date and Time Co-Signed: 10/18/24 09:07 EST ED Patient Summaryon 025 ED Patient Summary ED Patient Summary [address] [address] Patient Discharge Instructions Person Information Name: SHAZIA CHOU Age: 33 Years Arrival Date: 10/18/2024 08:04:01 Discharge Diagnosis: Chronic pain Primary Care Physician: KURT BALBUENA CNP Provider Information Primary Provider: Jose Correia M.D. Advanced Pecan Cleaner:Beto Shea PA-C The exam and treatment you received in the Emergency Department were for an urgent problem and are not intended as complete care. It is important that you follow up with a doctor, nurse practitioner, or physician???s early childhood teacher assistant for ongoing care. If your symptoms [...] Follow-up Instructions: With: Address: When: KURT BALBUENA [address] [place] [phone] Business (1) In 3 days 10/21/2024 In the event that this physician does not participate in your insurance network, please consult with your insurance company to find a nearby participating provider. Patient Education Materials: Chronic Pain, Adult A MESSAGE TO ALL PATIENTS REGARDING OPIOIDS PRESCRIPTION OPIOIDS: WHAT YOU NEED TO KNOW Prescription opioids can be used to help relieve xkwwpsnw-ji-iocqag pain and are often prescribed following a [...] care professio (more content not included)... Normal [facility] Ambulatory Visit Summaryon 0 10-14-2024 Ambulatory Visit [...] AM EST With: KURT BALBUENA CNP Where: [place] [phone]- Medications What How Much When Why Instructions [...] choosing us for your care. Normal [facility] Family Medicine Office/Clini c Noteon 10-14-2024 Family Medicine Office/Clinic Note Family Medicine Office/Clinic Note Chief Complaint Pain follow up HPI Staff Pt presents today for 2wk follow up to chronic pain. Treated w/gabapentin 100mg. Pt denies relief from pain with med. Brain MRI? Has not scheduled yet due to rescheduling on pt's end. Rheumatoid factor ordered last encounter. NEG (done @ [facility]) Referred to [facility]. Did see, but waiting for MRI brain results. PHQ9: 14 Does see psychiatrist. Concerned she may have Raynaud's. Would like referral rt occupational therapist assistants. History of Present Illness 33 year old [...] referral to rheumatology as the MD at [facility] suggested she may have Raynaud's phenomenon. Patient [...] TID, # 90 cap(s), Refills(s) 0, Pharmacy: [facility]/pharmacy #[id number], 170, cm, 10/14/24 9:02:00 EST, Height/Length Dosing, 90.2, kg, 10/14/24 9:02:00 EST, Weight Dosing 2. Raynaud phenomenon (I73.00: Raynaud's syndrome without gangrene) Ordered: [facility] External Ambulatory Referral 3. Alcohol abuse, uncomplicated [...] KURT BALBUENA CNP, FAM Within [address] [place] [phone] Business (1) Additional Instructions: Chronic pain syndrome Patient Education Binge-Drinking Information, Adult Problem List/Past Medical History Ongoing Alcohol abuse, uncomplicated Bipolar disorder BMI 31.0-31.9,adult Borderline personality disorder Chronic pain syndrome History of bypass of stomach Hypertension Iron deficiency anemia Left breast mass Muscle weakness-general Obesity (BMI 30-39.9) Overweight (BMI 25.0 (more content not included)... Normal [facility] Comment on above: Result Comment: Elec tronically Signed By: KURT BALBUENA CNP\.br\Date and Time Signed: 10/14/24 09:39 EST Pre-Visit Planningon 025 Pre-Visit Planning Pre-Visit Planning From: Lina Chirinos To: KURT BALBUENA CNP; Sent: 10/13/2024 14:16:22 EST Subject: Pre-Visit Planning Due Date/Time: 10/13/2024 14:16:00 EST Caller Name: SHAZIA CHOU; Caller Number: , Antonio Lanier. During a pre-visit planning chart review, I noted the following documentation in the medical record: Current Problem List: Alcohol abuse, uncomplicated. 11/03/2022 Office Visit Note: HPI- Pt reports her sobriety is under control. 50 days sober. Currently not drinking. Pt reports she started drinking heavily about 16 mo ago when her mother . Pt is currently using Naltrexone. 06/09/2023 [facility] ED Note: HPI- The patient states that [...] drug abuse. This was an error. 09/16/2024 [facility] Records (page 11): Office Visit dated 06/16/2024- [...] feel free to contact me at extension [phone]. Lina Chirinos LPN Clinical Division [employer] [place] [address] Extension: [phone] [email or web address] From: KURT BALBUENA CNP To: Lina Chirinos; Sent: 10/14/2024 09:24:40 EST Subject: RE: Pre-Visit Planning Caller Name: SHAZIA CHOU; Caller Number: Jonathan , Su Dx of alcohol abuse, uncomplicated added to the visit dx and chronic list- The following in in the patient's plan- Monitor for s/sx of alcohol dependence Recheck Vitamin B, folate, TIBC, Ferritin, Magnesium, phosphate, & zinc annually Encouraged to limit alcohol consumption to 4-6 ounces when she drinks Encouraged to continue with counseling f/u in 4-6 weeks Normal [facility] Ambulatory Visit Summaryon 0 09-30-2024 Ambulatory Visit Summary Ambulatory Visit Summary KARIN CHOUDION Bach :1990 Visit Date:09/30/2024 Ambulatory Visit Instructions [...] With: KURT BALBUENA CNP Where: [facility] Medicine [address] [address]- Medications What How Much When Why Instructions New gabapentin (gabapentin 100 mg Cap) 1 Capsules By Mouth 3 times a day Chronic pain syndrome Pickup at [facility]/pharmacy #[id number] Unchanged acetaminophen (Tylenol) 325 Milligram By [...] Once a day (at bedtime) Pharmacy Information [facility]/pharmacy #[id number]: [address], [place] [phone] Allergies Abilify (suicidal) BuSpar (palpitations) Coconut Oil [...] for choosing us for your care. Normal [facility] Family Medicine Office/Clini c Noteon 09-30-2024 Family [...] her previous pcp in July, to the [facility] ED on 09/05/2024 and again on 09/11/2024. She was seen by a provider at [facility] on 09/05/2024 and additional laboratory testing was [...] syndrome) Reviewed notes and laboratory results from [facility] Awaiting results from the Rheumatoid factor & [facility] Awaiting consult information form [facility] MRI scheduled for Thursday f/u in 2 weeks Ordered: gabapentin, 100 mg = 1 cap(s), Oral, TID, # 90 cap(s), Refills(s) 0, Pharmacy: [facility]/pharmacy #[id number], 170, cm, 09/30/24 9:53:00 EST, Height/Length [...] Tab gabapen (more content not included)... Normal [facility] Comment on above: Result Comment: Elec tronically Signed By: KURT BALBUENA CNP\.benito\Date and Time Signed: 09/30/24 10:29 EST Vit Aon 09-29-2024 Retinol [Mass/Vol] 68.4 microgram/dL High 18.9-57.3 [facility] Comment on above: Result Comment: Refe rence intervals for vitamin A determined from [facility] internal studies. Individuals with vitamin A less than 20 ug/dL are considered vitamin A deficient and those with serum concentrations less than 10 ug/dL are considered severely deficient. This test was developed and its performance characteristics determined by [facility]. It has not been cleared or approved by the Food and Drug Administration. Performed at: [facility] [id number] MD Shorty Rodríguez Performed By: #### 1 [id number] ####[facility] [address] [place] [address] EMG 2 Extremitieson 09-27-19 25 Normal EMG of the le ft upper and lower extremity [facility] Family Medicine Office/Clini c Noteon 09-27-2024 Family [...] she has an appointment today at [facility] for an EMG. She is [...] virus vaccine, inactivated 07/09/2020 Recorded Normal [facility] Comment on above: Result Comment: Elec tronically Signed By: KURT BALBUENA CNP\.br\Date and Time Signed: 09/27/24 12:39 EST NVC 11-12 Nerveson Normal EMG of the le ft upper and lower extremity [facility] ALL MYOGLOBINon 09-21-2024 Myoglobin [Mass/Vol] 33 ng/mL 9 - 82 ng/mL NO [facility] ALL THYROID STIM HORMONEon 0 09-21-2024 TSH Qn 1.268 m[IU]/L [facility] No Panel Informationon 09-21 [facility] Ambulatory Visit Summaryon 0 09-20-2024 Ambulatory [...] for choosing us for your care. Normal [facility] CHEMISTRYOrdered By: SYSTEM SYSTEM on 09-20-2024 25-hydroxyvitamin [...] a full Vitamin panel. ER visit [facility] - malnutrition Gave magnesium pill 1 pill [...] the ED. She reports she went to [facility] and it was recommended that she be [...] Folate Level Iron Level Lab Specimen Collect [id number] Magnesium Level TIBC Calculated Vitamin A Level [...] fasciotomy (06/02/ (more content not included)... Normal [facility] Comment on above: Result Comment: Elec tronically Signed By: KURT BALBUENA CNP\Date and Time Signed: 09/20/24 11:15 EST Ferritinon 09-20-2024 Ferritin [Mass/Vol] 10 ng/mL Low 11-307 [facility] Comment on above: Performed By: #### 2 [id number] #### [facility] Laboratory [address] [place] [address] Folateon 09-20-2024 Folate [Mass/Vol] ng/mL Normal >=6.7 [facility] Comment on above: Performed By: #### 2 [id number] #### [facility] [address] [place] [address] Ironon 09-20-2024 Iron [Mass/Vol] 124 microgram/dL Normal 35-153 [facility] Comment on above: Performed By: #### 2 [id number] #### [facility] [address] [place] [address] Magnesiumon 09-20-2024 Magnesium [Mass/Vol] 2.2 mg/dL Normal 1.3-2.4 [facility] Comment on above: Performed By: #### 2 [id number] #### [facility] [address] [place] [address] TIBC Calculatedon 09-20-2024 Iron binding capacity [Mass/Vol] 455 microgram/dL High 250-400 [facility] Comment on above: Performed By: #### 1 [id number] #### [facility] [address] [place] [address] Transferrin [Mass/Vol] 325 mg/dL Normal 200-370 [facility] Comment on above: Performed By: #### 1 [id number] #### [facility] [address] [place] [address] Vit B12on 09-20-2024 Cobalamin (Vitamin B12) [Mass/Vol] 626 pg/mL Normal 50-1500 [facility] Comment on above: Performed By: #### 2 [id number] #### [facility] [address] [place] [address] Vitamin D 25 Hydroxyon 09-20 25-hydroxyvitamin D3 [Mass/Vol] 43.7 ng/mL Normal 30.0-100.0 [facility] Comment on above: Performed By: #### 5 [id number] #### [facility] [address] [place] [address] Alanine aminotransferase [En zymatic activity/volume] in Serum or PlasmaOrdered By: Sailaja Anderson on 09-15-2024 ALT [Catalytic activity/Vol] Alanine aminotransferase [Enzymatic activity/volume] in Serum or Plasma 752 [facility] Albumin [Mass/volume] in Ser um or Plasma by Bromocresol green (BCG) dye binding methoOrdered By: Sailaja Anderson on 09-15-2024 Albumin BCG dye [Mass/Vol] Albumin [Mass/volume] in Serum or Plasma by Bromocresol green (BCG) dye binding metho 3.5-5.7 [facility] Alkaline phosphatase [Enzyma tic activity/volume] in Serum or PlasmaOrdered By: Sailaja Anderson on 09-15-2024 ALP [Catalytic activity/Vol] Alkaline phosphatase [Enzymatic activity/volume] in Serum or Plasma 34-104 [facility] Amphetamine Screen Ql (U)Ord ered By: Sailaja Anderson on 09-15-2024 Amphetamines Ql (U) Amphetamines screen Negativ e [facility] Appearance of UrineOrdered B y: Sailaja Anderson on 09-15-2024 Appearance (U) Urine appearance Clear [facility] Aspartate aminotransferase [ Enzymatic activity/volume] in Serum or PlasmaOrdered By: Sailaja Anderson on 09-15-2024 AST [Catalytic activity/Vol] Aspartate aminotransferase [Enzymatic activity/volume] in Serum or Plasma 13-39 [facility] Bacteria [Presence] in Urine by AutomatedOrdered By: Sailaja Anderson on 09-15-2024 Bacteria Auto Ql (U) Bacteria [Presence] in Urine by Automated None Seen [facility] Barbiturates [Presence] in U rine by Screen methodOrdered By: Sailaja Anderson on 09-15-2024 Barbiturates Screen Ql (U) Barbiturates [Presence] in Urine by Screen method Negative [facility] Basophils Auto (Bld) [#/Vol] Ordered By: Sailaja Anderson on 09-15-2024 Basophils (Bld) [#/Vol] Automated basophil count 0.0-0.2 [facility] Basophils/100 WBC Auto (Bld) Ordered By: Sailaja Anderson on 09-15-2024 Basophils/100 WBC (Bld) Automated basophil % . [facility] Benzodiazepines Screen Ql (U )Ordered By: Sailaja Anderson on 09-15-2024 Benzodiazepines Ql (U) Benzodiazepines [Presence] in Urine by Screen method Negative [facility] Benzoylecgonine [Presence] i n Urine by Screen methodOrdered By: Sailaja Anderson on 09-15-2024 Benzoylecgonine Screen Ql (U) Benzoylecgonine [Presence] in Urine by Screen method Negative [facility] Bilirubin Test strip Ql (U)O rdered By: Sailaja Anderson on 09-15-2024 Bilirubin Ql (U) Bilirubin.total [Presence] in Urine by Test strip Negative [facility] Bilirubin.total [Mass/volume ] in Serum or PlasmaOrdered By: Sailaja Anderson on 09-15-2024 Bilirubin [Mass/Vol] Bilirubin.total [Mass/volume] in Serum or Plasma 0.3-1.0 [facility] CT angio headon 09-15-2024 CT angio head [facility] [address] CT Scan Report Signed Patient: Shazia Chou MR#: [id number] : 1990 Acct:[id number] Age/Sex: 33 / F ADM Date: 09/15/24 Loc: ER Room: Type: [facility] ER Attending Dr: Copies to: Sailaja Anderson APRN Ordering Provider: Sailaja Anderson APRN Date of Service: 09/15/24 CT/CT angio head: weakness ([id number]) CT/CT angio neck: weakness ([id number]) CT/CT head/brain wo con: weakness CT head/brain [...] Wiley Shetty M.D.09/15/2024 3:56 PM Dictation Location: [place] [address] Transcribed By: MARKY 09/15/24 1826 Dictated By: Wiley Shetty II, MD 09/15/24 1546 Signed By: 09/15/24 1556 Normal [facility] Calcium [Mass/volume] in Ser um or PlasmaOrdered By: Sailaja Anderson on 09-15-2024 Calcium [Mass/Vol] Calcium [Mass/volume ] in Serum or Plasma 8.6-10.3 [facility] Cannabinoids [Presence] in U rine by Screen methodOrdered By: Sailaja Anderson on 09-15-2024 Cannabinoids Screen Ql (U) Cannabinoids [Presence] in Urine by Screen method Negative [facility] Comment on above: These are unconfirme d [...] l [Moles/volume] in Serum or Plasma 21.0-31.0 [facility] Chloride [Moles/volume] in S tushar or PlasmaOrdered By: Sailaja Anderson on 09-15-2024 Chloride [Moles/Vol] Chloride [Moles/vol ume] in Serum or Plasma 98-107 [facility] Color Auto (U)Ordered By: Scott Anderson on 09-15-2024 Color (U) Color of Urine by Auto Yellow [facility] Complete Blood Count Auto Di ffon 09-15-2024 Basophils (Bld) [#/Vol] 0.1 10*3/uL Normal 0.0-0.2 [facility] Comment on above: Result Comment: PERF ORMED BY: [place] [address] PATHOLOGIST MEDICAL EQUIPMENT REPAIR TECHNICIAN CARLOS KNAPP M.D. Performed By: #### M G, ESR, CMP, HS TROP, PTT, TSH3, T4F, ETOH, PT #### [address] Basophils/100 WBC (Bld) 0.7 % Normal . [facility] Comment on above: Performed By: #### M G, ESR, CMP, HS TROP, PTT, TSH3, T4F, ETOH, PT #### [address] Eosinophils (Bld) [#/Vol] 0.2 10*3/uL Normal 0.0-0.45 [facility] Comment on above: Performed By: #### M G, ESR, CMP, HS TROP, PTT, TSH3, T4F, ETOH, PT #### [address] Eosinophils/100 WBC (Bld) 2.4 % Normal . [facility] Comment on above: Performed By: #### M G, ESR, CMP, HS TROP, PTT, TSH3, T4F, ETOH, PT #### [address] Erythrocyte distribution width (RBC) [Ratio] 16.9 % High 11.9-15.3 [facility] Comment on above: Performed By: #### M G, ESR, CMP, HS TROP, PTT, TSH3, T4F, ETOH, PT #### [address] Hematocrit (Bld) [Volume fraction] 35.6 % Normal 34.0-46.4 [facility] Comment on above: Performed By: #### M G, ESR, CMP, HS TROP, PTT, TSH3, T4F, ETOH, PT #### [address] Hemoglobin (Bld) [Mass/Vol] 12.1 g/dL Normal 11.8-15.4 [facility] Comment on above: Performed By: #### M G, ESR, CMP, HS TROP, PTT, TSH3, T4F, ETOH, PT #### [address] Lymphocytes (Bld) [#/Vol] 2.3 10*3/uL Normal 1.00-4.8 [facility] Comment on above: Performed By: #### M G, ESR, CMP, HS TROP, PTT, TSH3, T4F, ETOH, PT #### [address] Lymphocytes/100 WBC (Bld) 26.3 % Normal . [facility] Comment on above: Performed By: #### M G, ESR, CMP, HS TROP, PTT, TSH3, T4F, ETOH, PT #### [address] MCH (RBC) [Entitic mass] 32.5 pg Normal 24.7-34.3 [facility] Comment on above: Performed By: #### M G, ESR, CMP, HS TROP, PTT, TSH3, T4F, ETOH, PT #### [address] MCV (RBC) [Entitic vol] 96.0 fL Normal 80-100 [facility] Comment on above: Performed By: #### M G, ESR, CMP, HS TROP, PTT, TSH3, T4F, ETOH, PT #### [address] Mean Corpuscular HGB Conc 33.9 g/dL Normal 32.0-35.0 [facility] Comment on above: Performed By: #### M G, ESR, CMP, HS TROP, PTT, TSH3, T4F, ETOH, PT #### [address] Monocytes (Bld) [#/Vol] 0.7 10*3/uL Normal 0.0-0.8 [facility] Comment on above: Performed By: #### M G, ESR, CMP, HS TROP, PTT, TSH3, T4F, ETOH, PT #### [place] [address] [place] Monocytes/100 WBC (Bld) 17.55 % Normal 0.00-20.00 [facility] Comment on above: Performed By: #### M G, ESR, CMP, HS TROP, PTT, TSH3, T4F, ETOH, PT #### [place] [address] [place] Monocytes/100 WBC (Bld) 7.8 % Normal . [facility] Comment on above: Performed By: #### M G, ESR, CMP, HS TROP, PTT, TSH3, T4F, ETOH, PT #### [place] [address] [place] Neutrophils (Bld) [#/Vol] 5.4 10*3/uL Normal 1.8-7.7 [facility] Comment on above: Performed By: #### M G, ESR, CMP, HS TROP, PTT, TSH3, T4F, ETOH, PT #### [address] Neutrophils/100 WBC (Bld) 62.8 % Normal . [facility] Comment on above: Performed By: #### M G, ESR, CMP, HS TROP, PTT, TSH3, T4F, ETOH, PT #### [address] NRBC% 0.1 /100{WBC} Normal 0-0.5 [facility] Comment on above: Performed By: #### M G, ESR, CMP, HS TROP, PTT, TSH3, T4F, ETOH, PT #### [place] [address] [place] Platelet mean volume (Bld) [Entitic vol] 9.2 fL Normal 6.3-10.7 [facility] Comment on above: Performed By: #### M G, ESR, CMP, HS TROP, PTT, TSH3, T4F, ETOH, PT #### [place] [address] [place] Platelets (Bld) [#/Vol] 292 10*3/uL Normal 150-450 [facility] Comment on above: Performed By: #### M G, ESR, CMP, HS TROP, PTT, TSH3, T4F, ETOH, PT #### [facility] [address] RBC (Bld) [#/Vol] 3.71 10*6/uL Normal 3.60-5.00 [facility] Comment on above: Performed By: #### M G, ESR, CMP, HS TROP, PTT, TSH3, T4F, ETOH, PT #### [facility] [address] WBC (Bld) [#/Vol] 8.6 10*3/uL Normal 3.8-11.6 [facility] Comment on above: Performed By: #### M G, ESR, CMP, HS TROP, PTT, TSH3, T4F, ETOH, PT #### [facility] [address] Comprehensive Metabolic Pane jak 09-15-2024 Albumin [Mass/Vol] 3.8 g/dL Normal 3.5-5.7 [facility] Comment on above: Performed By: #### M G, ESR, CMP, HS TROP, PTT, TSH3, T4F, ETOH, PT #### [facility] [address] Albumin/Globulin [Mass ratio] 1.5 {ratio} Normal [facility] Comment on above: Performed By: #### M G, ESR, CMP, HS TROP, PTT, TSH3, T4F, ETOH, PT #### [facility] [address] ALP [Catalytic activity/Vol] 53 U/L Normal 34-104 [facility] Comment on above: Performed By: #### M G, ESR, CMP, HS TROP, PTT, TSH3, T4F, ETOH, PT #### [facility] [address] ALT [Catalytic activity/Vol] 15 U/L Normal 7-52 [facility] Comment on above: Performed By: #### M G, ESR, CMP, HS TROP, PTT, TSH3, T4F, ETOH, PT #### [address] Anion gap [Moles/Vol] 8.3 mmol/L Normal 6.0-15.0 [facility] Comment on above: Performed By: #### M G, ESR, CMP, HS TROP, PTT, TSH3, T4F, ETOH, PT #### [address] AST [Catalytic activity/Vol] 16 U/L Normal 13-39 [facility] Comment on above: Performed By: #### M G, ESR, CMP, HS TROP, PTT, TSH3, T4F, ETOH, PT #### [address] Bilirubin [Mass/Vol] 0.3 mg/dL Normal 0.3-1.0 [facility] Comment on above: Performed By: #### M G, ESR, CMP, HS TROP, PTT, TSH3, T4F, ETOH, PT #### [address] Calcium [Mass/Vol] 9.0 mg/dL Normal 8.6-10.3 [facility] Comment on above: Performed By: #### M G, ESR, CMP, HS TROP, PTT, TSH3, T4F, ETOH, PT #### [address] Chloride [Moles/Vol] 107 mmol/L Normal 98-107 [facility] Comment on above: Performed By: #### M G, ESR, CMP, HS TROP, PTT, TSH3, T4F, ETOH, PT #### [address] CO2 [Moles/Vol] 26.2 mmol/L Normal 21.0-31.0 [facility] Comment on above: Performed By: #### M G, ESR, CMP, HS TROP, PTT, TSH3, T4F, ETOH, PT #### [facility] [address] Creatinine [Mass/Vol] 0.57 mg/dL Low 0.60-1.20 [facility] Comment on above: Performed By: #### M G, ESR, CMP, HS TROP, PTT, TSH3, T4F, ETOH, PT #### [facility] [address] [place] [address] [place] Creatinine Clr Calc Pharmacy 157.80 Normal [facility] Comment on above: Performed By: #### M G, ESR, CMP, HS TROP, PTT, TSH3, T4F, ETOH, PT #### [facility] [address] [place] [address] [place] GFR/1.73 sq M.predicted MDRD (S/P/Bld) [Vol rate/Area] mL/min/{1.73_m2} Normal [facility] Comment on above: Performed By: #### M G, ESR, CMP, HS TROP, PTT, TSH3, T4F, ETOH, PT #### [facility] [address] Globulin (S) [Mass/Vol] 2.6 g/dL Normal [facility] Comment on above: Performed By: #### M G, ESR, CMP, HS TROP, PTT, TSH3, T4F, ETOH, PT #### [facility] [address] Glucose [Mass/Vol] 87 mg/dL Normal 70-100 [facility] Comment on above: Result Comment: [facility] Glucose Reference Range is dependent on time and content of last meal. Glucose of more than 200 mg/dL in a nonstressed, ambulatory subject supports the diagnosis of Diabetes Mellitus. ADA recommended reference range Performed By: #### M G, ESR, CMP, HS TROP, PTT, TSH3, T4F, ETOH, PT #### [facility] [address] Potassium [Moles/Vol] 3.5 mmol/L Normal 3.5-5.1 [facility] Comment on above: Performed By: #### M G, ESR, CMP, HS TROP, PTT, TSH3, T4F, ETOH, PT #### [facility] [address] Protein [Mass/Vol] 6.4 g/dL Normal 6.4-8.9 [facility] Comment on above: Performed By: #### M G, ESR, CMP, HS TROP, PTT, TSH3, T4F, ETOH, PT #### [address] Sodium [Moles/Vol] 138 mmol/L Normal 136-145 [facility] Comment on above: Performed By: #### M G, ESR, CMP, HS TROP, PTT, TSH3, T4F, ETOH, PT #### [facility] [address] Urea nitrogen [Mass/Vol] 6 mg/dL Low 7-25 [facility] Comment on above: Performed By: #### M G, ESR, CMP, HS TROP, PTT, TSH3, T4F, ETOH, PT #### [address] Creatinine [Mass/volume] in Serum or PlasmaOrdered By: Sailaja Anderson on 09-15-2024 Creatinine [Mass/Vol] Creatinine [Mass/volume] in Serum or Plasma Low 0.60-1.20 [facility] Dipstick and Microscopicon 0 09-15-2024 Appearance (U) Clear Normal Clear [facility] Comment on above: Order Comment: Name Collection Type:: Clean-Voided Midstream Performed By: #### M G, ESR, CMP, HS TROP, PTT, TSH3, T4F, ETOH, PT #### [address] Bacteria,Urine None Seen Normal None Seen [facility] Comment on above: Order Comment: Name Collection Type:: Clean-Voided Midstream Performed By: #### M G, ESR, CMP, HS TROP, PTT, TSH3, T4F, ETOH, PT #### [address] Bilirubin,Urine Negative Normal Negative [facility] Comment on above: Order Comment: Name Collection Type:: Clean-Voided Midstream Performed By: #### M G, ESR, CMP, HS TROP, PTT, TSH3, T4F, ETOH, PT #### [facility] [address] Color (U) Yellow Normal Yellow [facility] Comment on above: Order Comment: Name Collection Type:: Clean-Voided Midstream Performed By: #### M G, ESR, CMP, HS TROP, PTT, TSH3, T4F, ETOH, PT #### [facility] [address] Glucose Ql (U) Normal Normal Normal [facility] Comment on above: Order Comment: Name Collection Type:: Clean-Voided Midstream Performed By: #### M G, ESR, CMP, HS TROP, PTT, TSH3, T4F, ETOH, PT #### [address] Hyaline Casts,Urine None Normal 0-8 [facility] Comment on above: Order Comment: Name Collection Type:: Clean-Voided Midstream Performed By: #### M G, ESR, CMP, HS TROP, PTT, TSH3, T4F, ETOH, PT #### [address] Ketones Ql (U) 1+ High Negative [facility] Comment on above: Order Comment: Name Collection Type:: Clean-Voided Midstream Performed By: #### M G, ESR, CMP, HS TROP, PTT, TSH3, T4F, ETOH, PT #### [place] [address] [place] Leukocyte esterase Test strip Ql (U) Negative Normal Negative [facility] Comment on above: Order Comment: Name Collection Type:: Clean-Voided Midstream Performed By: #### M G, ESR, CMP, HS TROP, PTT, TSH3, T4F, ETOH, PT #### [place] [address] [place] Mucus,Urine Rare Normal [facility] Comment on above: Order Comment: Name Collection Type:: Clean-Voided Midstream Performed By: #### M G, ESR, CMP, HS TROP, PTT, TSH3, T4F, ETOH, PT #### [place] [address] [place] Nitrite,Urine Negative Normal Negative [facility] Comment on above: Order Comment: Name Collection Type:: Clean-Voided Midstream Performed By: #### M G, ESR, CMP, HS TROP, PTT, TSH3, T4F, ETOH, PT #### [place] [address] [place] Occult Blood,Urine Negative Normal Negative [facility] Comment on above: Order Comment: Name Collection Type:: Clean-Voided Midstream Performed By: #### M G, ESR, CMP, HS TROP, PTT, TSH3, T4F, ETOH, PT #### [place] [address] [place] pH (U) 7.0 [pH] Normal 5.0-9.0 [facility] Comment on above: Order Comment: Name Collection Type:: Clean-Voided Midstream Performed By: #### M G, ESR, CMP, HS TROP, PTT, TSH3, T4F, ETOH, PT #### [place] [address] [place] Protein,Urine Trace High Negative [facility] Comment on above: Order Comment: Name Collection Type:: Clean-Voided Midstream Performed By: #### M G, ESR, CMP, HS TROP, PTT, TSH3, T4F, ETOH, PT #### [place] [address] [place] RBC,Urine 1 [HPF] Normal 0-4 [facility] Comment on above: Order Comment: Name Collection Type:: Clean-Voided Midstream Performed By: #### M G, ESR, CMP, HS TROP, PTT, TSH3, T4F, ETOH, PT #### [place] [address] [place] Specificy [place],Urine 1.025 Normal 1.001-1.030 [facility] Comment on above: Order Comment: Name Collection Type:: Clean-Voided Midstream Performed By: #### M G, ESR, CMP, HS TROP, PTT, TSH3, T4F, ETOH, PT #### [address] Squamous Epithelial Cell,Urine 3 [HPF] High 0-2 [facility] Comment on above: Order Comment: Name Collection Type:: Clean-Voided Midstream Performed By: #### M G, ESR, CMP, HS TROP, PTT, TSH3, T4F, ETOH, PT #### [address] Urobilinogen,Urine 2 mg/dL High Normal [facility] Comment on above: Order Comment: Name Collection Type:: Clean-Voided Midstream Performed By: #### M G, ESR, CMP, HS TROP, PTT, TSH3, T4F, ETOH, PT #### [address] WBC,Urine 1 [HPF] Normal 0-4 [facility] Comment on above: Order Comment: Name Collection Type:: Clean-Voided Midstream Performed By: #### M G, ESR, CMP, HS TROP, PTT, TSH3, T4F, ETOH, PT #### [address] Drug Screen,Urineon 09-15-19 25 Amphetamine Screen,Urine Negative Normal Negative [facility] Comment on above: Performed By: #### M G, ESR, CMP, HS TROP, PTT, TSH3, T4F, ETOH, PT #### [place] [address] [place] Barbiturate Screen,Urine Negative Normal Negative [facility] Comment on above: Performed By: #### M G, ESR, CMP, HS TROP, PTT, TSH3, T4F, ETOH, PT #### [place] [address] [place] Benzodiazepines Screen,Urine Negative Normal Negative [facility] Comment on above: Performed By: #### M G, ESR, CMP, HS TROP, PTT, TSH3, T4F, ETOH, PT #### [place] [address] [place] Cannabinoid Screen,Urine Negative Normal Negative [facility] Comment on above: Result Comment: Thes e are unconfirmed results and should not be used for legal purposes. Drug Cut-Off Concentration: AMPH 1000 ng/mL OPAL 200 ng/mL AURELIANO 200 ng/mL COCM 300 ng/mL OP 300 ng/mL PCP 25 ng/mL THC 20 ng/mL PERFORMED BY: [place] [address] PATHOLOGIST MEDICAL EQUIPMENT REPAIR TECHNICIAN CARLOS KNAPP M.D. Performed By: #### M G, ESR, CMP, HS TROP, PTT, TSH3, T4F, ETOH, PT #### [address] Cocaine Screen,Urine Negative Normal Negative [facility] Comment on above: Performed By: #### M G, ESR, CMP, HS TROP, PTT, TSH3, T4F, ETOH, PT #### [place] [address] [place] Opiate Screen,Urine Negative Normal Negative [facility] Comment on above: Performed By: #### M G, ESR, CMP, HS TROP, PTT, TSH3, T4F, ETOH, PT #### [address] Phencyclidine Screen,Urine Negative Normal Negative [facility] Comment on above: Performed By: #### M G, ESR, CMP, HS TROP, PTT, TSH3, T4F, ETOH, PT #### [place] [address] [place] ECG 12 lead ECGon 09-15-2024 ECG 12 lead ECG [facility] [place] [address] [place] [address] Electrocardiograph Report Signed Patient: Shazia Chou MR#: [id number] : 1990 Acct:[id number] Age/Sex: 33 / F ADM Date: 09/15/24 Loc: ER Room: Type: [facility] ER Attending Dr: Ordering Provider: Sailaja Anderson [...] needs review Confirmed by Agus Hooper DO ([id number]) on 09/15/2024 3:29:15 PM Referred By: Electronically Signed By: Agus Hooper DO Transcribed By: MUS Signed By Agus Hooper DO 5 1529 Normal [facility] Eosinophils Auto (Bld) [#/Vo l]Ordered By: Sailaja Anderson on 09-15-2024 Eosinophils (Bld) [#/Vol] Automated eosinophil count 0.0-0.45 [facility] Eosinophils/100 WBC Auto (Bl d)Ordered By: Sailaja Anderson on 09-15-2024 Eosinophils/100 WBC (Bld) Automated eosinophil % . [facility] Epithelial cells.squamous [# /area] in Urine sediment by Automated countOrdered By: Sailaja Anderson on 09-15-2024 Epithelial cells.squamous Auto (Urine sed) [#/Area] Epithelial cells.squamous [#/area] in Urine sediment by Automated count High 0-2 [facility] Erythrocyte Sedimentation Ra don 09-15-2024 ESR (Bld) [Velocity] 7 mm/h Normal 0-19 [facility] Comment on above: Result Comment: PERF ORMED BY: [place] [address] PATHOLOGIST MEDICAL EQUIPMENT REPAIR TECHNICIAN CARLOS KNAPP M.D. Performed By: #### M G, ESR, CMP, HS TROP, PTT, TSH3, T4F, ETOH, PT #### [address] Erythrocyte distribution wid th Auto (RBC) [Ratio]Ordered By: Sailaja Anderson on 09-15-2024 Erythrocyte distribution width (RBC) [Ratio] Erythrocyte distribution width [Ratio] by Automated count High 11.9-15.3 [facility] Erythrocyte sedimentation ra te by Photometric methodOrdered By: Sailaja Anderson on 09-15-2024 ESR Photometric method (Bld) [Velocity] Erythrocyte sedimentation rate by Photometric method 0-19 [facility] Erythrocytes [#/area] in Uri ne sediment by Automated countOrdered By: Sailaja Anderson on 09-15-2024 RBC Auto (Urine sed) [#/Area] Erythrocytes [#/area] in Urine sediment by Automated count 0-4 [facility] Ethanol [Mass/volume] in Ser um or PlasmaOrdered By: Sailaja Anderson on 09-15-2024 Ethanol [Mass/Vol] Ethanol [Mass/volume ] in Serum or Plasma [facility] Comment on above: Test not performed Ethyl Alcohol Profileon Ethanol [Mass/Vol] mg/dL Normal [facility] Comment on above: Performed By: #### M G, ESR, CMP, HS TROP, PTT, TSH3, T4F, ETOH, PT #### [facility] [address] Percent Ethanol Not performed Normal [facility] Comment on above: Result Comment: PERF ORMED BY: [place] [address] PATHOLOGIST MEDICAL EQUIPMENT REPAIR TECHNICIAN CARLOS KNAPP M.D. Performed By: #### M G, ESR, CMP, HS TROP, PTT, TSH3, T4F, ETOH, PT #### [facility] [address] Family Medicine Office/Clini c Noteon 09-15-2024 [...] Mia PERRY Any recent labs: done @ [facility] ER 09/05/24 Health Maintenance UTD: Colonoscopy: NA [place]ammogram[place]09[place] [facility] Pelvic/Pap: 12/05 following hysterectomy, states she was [...] her previous pcp in July, to the [facility] ED on 09/05/2024 and again on 09/11/2024. She reports she was at [facility] last week and they performed a bunch of laboratory testing that came back negative. She was seen at in [place] on 09/13/2024 for chest pain and this [...] unspecified site) Reviewed the discharge summary from [facility]- CMP, CRP, ESR, & CBC - WNL Reviewed the Echo from in [place] on the 13 of September- Normal results Awaiting additional records from providers f/u after consult with neurology Ordered: [facility] External Ambulatory Referral 2. Balance problem (R26.89: Other abnormalities of gait and mobility) Reviewed the discharge summary from [facility]- CMP, CRP, ESR, & CBC - WNL Reviewed the Echo from in [place] on the 13 of September- Normal results Awaiting additional records from providers f/u after consult with neurology Ordered: [facility] External Ambulatory Referral 3. Encounter to establish [...] in addres (more content not included)... Normal [facility] Comment on above: Result Comment: Elec tronically Signed By: KURT BALBUENA CNP\.benito\Date and Time Signed: 09/15/24 14:31 EST Free T4 (Free Thyroxine)on 0 09-15-2024 Free T4 [Mass/Vol] 1.02 ng/dL Normal 0.61-1.12 [facility] Comment on above: Performed By: #### M G, ESR, CMP, HS TROP, PTT, TSH3, T4F, ETOH, PT ####[facility] [id number] [place] [address] [facility] Globulin Calc (S) [Mass/Vol] Ordered By: Sailaja Anderson on 09-15-2024 Globulin (S) [Mass/Vol] Serum globulin measurement by calculation (mass/volume) [facility] Glucose [Mass/volume] in Ser um or PlasmaOrdered By: Sailaja Anderson on 09-15-2024 Glucose [Mass/Vol] Glucose [Mass/volume ] in Serum or Plasma 70-100 [facility] Comment on above: ADA recommended [...] [Mass/volume] in Urine by Test strip Normal [facility] HCG ( test) IA.rapi d Ql (U)Ordered By: Sailaja Anderson on 09-15-2024 HCG ( test) Ql (U) Urine human chorionic gonadotropin (hCG) detection by immunoassay [facility] HCG,Urineon 09-15-2024 Beta HCG ( test) Ql (U) Negative Normal [facility] Comment on above: Order Comment: Name Collection Type:: Clean-Voided Midstream Result Comment: PERF ORMED BY: [facility] [address] [place] [address] PATHOLOGIST MEDICAL EQUIPMENT REPAIR TECHNICIAN CARLOS KNAPP M.D. Performed By: #### M G, ESR, CMP, HS TROP, PTT, TSH3, T4F, ETOH, PT #### [facility] [address] Hematocrit Auto (Bld) [Volum e fraction]Ordered By: Sailaja Anderson on 09-15-2024 Hematocrit (Bld) [Volume fraction] Hematocrit [Volume Fraction] of Blood by Automated count 34.0-46.4 [facility] Hemoglobin Test strip Ql (U) Ordered By: Sailaja Anderson on 09-15-2024 Hemoglobin Ql (U) Hemoglobin [Presence ] in Urine by Test strip Negative [facility] Hemoglobin [Mass/volume] in BloodOrdered By: Sailaja Anderson on 09-15-2024 Hemoglobin (Bld) [Mass/Vol] Hemoglobin [Mass/volume] in Blood 11.8-15.4 [facility] Hyaline casts [#/area] in Ur ine sediment by Automated countOrdered By: Sailaja Anderson on 09-15-2024 Hyaline casts Auto (Urine sed) [#/Area] Hyaline casts [#/area] in Urine sediment by Automated count 0-8 [facility] INR in Platelet poor plasma by Coagulation assayOrdered By: Sailaja Anderson on 09-15-2024 INR Coag (PPP) [Relative time] INR in Platelet poor plasma by Coagulation assay [facility] Comment on above: INR Therapeutic [...] n Urine by Test strip High Negative [facility] Leukocyte esterase [Presence ] in Urine by Test stripOrdered By: Sailaja Anderson on 09-15-2024 Leukocyte esterase Test strip Ql (U) Leukocyte esterase [Presence] in Urine by Test strip Negative [facility] Leukocytes [#/area] in Urine sediment by Automated countOrdered By: Sailaja Anderson on 09-15-2024 WBC Auto (Urine sed) [#/Area] Leukocytes [#/area] in Urine sediment by Automated count 0-4 [facility] Leukocytes [#/volume] correc caitlin for nucleated erythrocytes in Blood by Automated counOrdered By: Sailaja Anderson on 09-15-2024 WBC corrected for nucl RBC Auto (Bld) [#/Vol] Leukocytes [#/volume] corrected for nucleated erythrocytes in Blood by Automated coun 3.8-11.6 [facility] Lymphocytes Auto (Bld) [#/Vo l]Ordered By: Sailaja Anderson on 09-15-2024 Lymphocytes (Bld) [#/Vol] Lymphocytes [#/volume] in Blood by Automated count 1.00-4.8 [facility] Lymphocytes/100 WBC Auto (Bl d)Ordered By: Sailaja Anderson on 09-15-2024 Lymphocytes/100 WBC (Bld) Lymphocytes/100 leukocytes in Blood by Automated count . [facility] MCH Auto (RBC) [Entitic mass ]Ordered By: Sailaja Anderson on 09-15-2024 MCH (RBC) [Entitic mass] MCH [Entitic mass] by Automated count 24.7-34.3 [facility] MCHC Auto (RBC) [Mass/Vol]Or dered By: Sailaja Anderson on 09-15-2024 MCHC (RBC) [Mass/Vol] MCHC [Mass/volume] by Automated count 32.0-35.0 [facility] MCV Auto (RBC) [Entitic vol] Ordered By: Sailaja Anderson on 09-15-2024 MCV (RBC) [Entitic vol] MCV [Entitic volume] by Automated count 80-100 [facility] Magnesiumon 09-15-2024 Magnesium [Mass/Vol] 1.7 mg/dL Low 1.9-2.7 [facility] Comment on above: Performed By: #### M G, ESR, CMP, HS TROP, PTT, TSH3, T4F, ETOH, PT #### [facility] [address] [place] [id number] [facility] Magnesium [Mass/volume] in S tushar or PlasmaOrdered By: Sailaja Anderson on 09-15-2024 Magnesium [Mass/Vol] Magnesium [Mass/vol ume] in Serum or Plasma Low 1.9-2.7 [facility] Monocyte distribution width [Entitic volume] in Blood by AutomatedOrdered By: Sailaja Anderson on 09-15-2024 Monocyte distribution width Auto (Bld) [Entitic vol] Monocyte distribution width [Entitic volume] in Blood by Automated 0.00-20.00 [facility] Monocytes Auto (Bld) [#/Vol] Ordered By: Sailaja Anderson on 09-15-2024 Monocytes (Bld) [#/Vol] Automated blood monocyte count 0.0-0.8 [facility] Monocytes/100 WBC Auto (Bld) Ordered By: Sailaja Anderson on 09-15-2024 Monocytes/100 WBC (Bld) Automated monocyte % . [facility] Mucus [Presence] in Urine by AutomatedOrdered By: Sailaja Anderson on 09-15-2024 Mucus Auto Ql (U) Mucus [Presence] in Urine by Automated [facility] Neutrophils Auto (Bld) [#/Vo l]Ordered By: Sailaja Anderson on 09-15-2024 Neutrophils (Bld) [#/Vol] Neutrophils [#/volume] in Blood by Automated count 1.8-7.7 [facility] Neutrophils/100 WBC Auto (Bl d)Ordered By: Sailaja Anderson on 09-15-2024 Neutrophils/100 WBC (Bld) Automated neutrophil % . [facility] Nitrite Test strip Ql (U)Ord ered By: Sailaja Anderson on 09-15-2024 Nitrite Ql (U) Nitrite [Presence] i n Urine by Test strip Negative [facility] No Panel InformationOrdered By: Sailaja Anderson on 09-15-2024 Estimated GFR (CKD-EPI) > 60.0 mL/Min [facility] Creatinine Clearance (Chem 157.80 [facility] Nucleated erythrocytes [Pres ence] in Blood by Automated countOrdered By: Sailaja Anderson on 09-15-2024 Nucleated RBC Auto Ql (Bld) Nucleated erythrocytes [Presence] in Blood by Automated count 0-0.5 [facility] Opiates [Presence] in Urine by Screen methodOrdered By: Sailaja Anderson on 09-15-2024 Opiates Screen Ql (U) Opiates [Presence] in Urine by Screen method Negative [facility] Partial Thromboplastin Timeo n 09-15-2024 aPTT Coag (Bld) [Time] 28.0 s Normal 25.1-36.5 [facility] Comment on above: Result Comment: A he matocrit value greater than 55% may lead to inaccurate results in coagulation testing. Patients having hematocrit values >55% require a special collection tube for coagulation studies. Please contact the laboratory at [phone] for redraw instructions. PERFORMED BY: [place] [address] PATHOLOGIST MEDICAL EQUIPMENT REPAIR TECHNICIAN CARLOS KNAPP M.D. Performed By: #### M G, ESR, CMP, HS TROP, PTT, TSH3, T4F, ETOH, PT #### [facility] [address] [place] [address] Phencyclidine Screen Ql (U)O rdered By: Sailaja Anderson on 09-15-2024 Phencyclidine Ql (U) Phencyclidine [Presence] in Urine by Screen method Negative [facility] Platelet mean volume Auto (B ld) [Entitic vol]Ordered By: Sailaja Anderson on 09-15-2024 Platelet mean volume (Bld) [Entitic vol] Platelet mean volume [Entitic volume] in Blood by Automated count 6.3-10.7 [facility] Platelets Auto (Bld) [#/Vol] Ordered By: Sailaja Anderson on 09-15-2024 Platelets (Bld) [#/Vol] Platelets [#/volume] in Blood by Automated count 150-450 [facility] Potassium [Moles/volume] in Serum or PlasmaOrdered By: Sailaja Anderson on 09-15-2024 Potassium [Moles/Vol] Potassium [Moles/volume] in Serum or Plasma 3.5-5.1 [facility] Protein Test strip (U) [Mass /Vol]Ordered By: Sailaja Anderson on 09-15-2024 Protein (U) [Mass/Vol] Protein [Mass/vol ume] in Urine by Test strip High Negative [facility] Protein [Mass/volume] in Ser um or PlasmaOrdered By: Sailaja Anderson on 09-15-2024 Protein [Mass/Vol] Protein [Mass/volume ] in Serum or Plasma 6.4-8.9 [facility] Prothrombin Time INRon 09-15 INR Coag (PPP) [Relative time] 0.9 {INR} Normal [facility] Comment on above: [...] TROP, PTT, TSH3, T4F, ETOH, PT #### [facility] [address] [place] [id number] [facility] PT Coag (PPP) [Time] 10.4 s Normal 9.0-12.9 [facility] Comment on above: Result Comment: A he matocrit value greater than 55% may lead to inaccurate results in coagulation testing. Patients having hematocrit values >55% require a special collection tube for coagulation studies. Please contact the laboratory at [phone] for redraw instructions. Performed By: #### M G, ESR, CMP, HS TROP, PTT, TSH3, T4F, ETOH, PT #### [facility] [address] [place] [address] [place] Prothrombin time (PT)Ordered By: Sailaja Anderson on 09-15-2024 PT Coag (PPP) [Time] Prothrombin time (PT) 9.0- 12.9 [facility] Comment on above: A hematocrit value g reater than 55% may lead to inaccurate results in coagulation testing. Patients having hematocrit values >55% require a special collection tube for coagulation studies. Please contact the laboratory at [phone] for redraw instructions. RBC Auto (Bld) [#/Vol]Ordere d By: Sailaja Anderson on 09-15-2024 RBC (Bld) [#/Vol] Erythrocytes [#/volu me] in Blood by Automated count 3.60-5.00 [facility] Serum or plasma albumin/glob ulin mass ratioOrdered By: Sailaja Anderson on 09-15-2024 Albumin/Globulin [Mass ratio] Serum or plasma albumin/globulin mass ratio [facility] Serum or plasma anion gap de terminationOrdered By: Sailaja Anderson on 09-15-2024 Anion gap [Moles/Vol] Serum or plasma an ion gap determination 6.0-15.0 [facility] Sodium [Moles/volume] in Ser um or PlasmaOrdered By: Sailaja Anderson on 09-15-2024 Sodium [Moles/Vol] Sodium [Moles/volume ] in Serum or Plasma 136-145 [facility] Specific gravity Test strip (U) [Rel density]Ordered By: Sailaja Anderson on 09-15-2024 Specific gravity (U) [Rel density] Specific gravity of Urine by Test strip 1.001-1.030 [facility] Thyroid Stimulating Hormoneo n 09-15-2024 TSH Qn 0.73 m[IU]/L Normal 0.45-5.33 [facility] Comment on above: Result Comment: PERF ORMED BY: [facility] [address] [place] [address] PATHOLOGIST MEDICAL EQUIPMENT REPAIR TECHNICIAN CARLOS KNAPP M.D. Performed By: #### M G, ESR, CMP, HS TROP, PTT, TSH3, T4F, ETOH, PT ####[facility] [address] [place] [address] [facility] Thyrotropin [Units/volume] i n Serum or PlasmaOrdered By: Sailaja Anderson on 09-15-2024 TSH Qn Thyrotropin [Units/volume] in Serum or Plasma 0.45-5.33 [facility] Thyroxine (T4) free [Mass/vo lume] in Serum or PlasmaOrdered By: Sailaja Anderson on 09-15-2024 Free T4 [Mass/Vol] Thyroxine (T4) free [Mass/volume] in Serum or Plasma 0.61-1.12 [facility] Troponin I High Sensitivityo n 09-15-2024 Troponin I High Sensitivity 2.3 pg/mL Normal 0.0-15.0 [facility] Comment on above: Result Comment: PERF ORMED BY: [facility] [address] [place] [address] PATHOLOGIST MEDICAL EQUIPMENT REPAIR TECHNICIAN CARLOS KNAPP M.D. Performed By: #### M G, ESR, CMP, HS TROP, PTT, TSH3, T4F, ETOH, PT #### [facility] [address] Troponin I.cardiac [Mass/vol ume] in Serum or Plasma by Detection limit <= 0.01 ng/Ordered By: Sailaja Anderson on 09-15-2024 Troponin I.cardiac DL <= 0.01 ng/mL [Mass/Vol] Troponin I.cardiac [Mass/volume] in Serum or Plasma by Detection limit <= 0.01 ng/ 0.0-15.0 [facility] Urea nitrogen [Mass/volume] in Serum or PlasmaOrdered By: Sailaja Anderson on 09-15-2024 Urea nitrogen [Mass/Vol] Urea nitrogen [Mass/volume] in Serum or Plasma Low 7-25 [facility] Urobilinogen Test strip (U) [Mass/Vol]Ordered By: Sailaja Anderson on 09-15-2024 Urobilinogen (U) [Mass/Vol] Urobilinogen [Mass/volume] in Urine by Test strip High Normal [facility] WBC Auto (Bld) [#/Vol]Ordere d By: Sailaja Anderson on 09-15-2024 WBC (Bld) [#/Vol] Leukocytes [#/volume ] in Blood by Automated count 3.8-11.6 [facility] X-ray reportOrdered By: Wiley Shetty on 09-15-2024 Study report [facility] [address] [place] [address] [place] [address] XRay Report Signed Patient: Shazia Chou MR#: [id number] : 1990 Acct:[id number] Age/Sex: 33 / F ADM Date: Loc: ER Room: Type: [facility] ER Attending Dr: Copies to: Sailaja Anderson [...] Wiley Shetty M.D.09/15/2024 3:56 PM Dictation Location: [place] [address] Transcribed By: [facility] 09/15/24 155 Dictated By: Wiley Shetty II, MD 09/15/24 155 Signed By: 09/15/24 1556 [facility] Work Phone: XR chest 2V*on 09-15-2024 XR chest 2V* [facility] [place] [address] XRay Report Signed Patient: Shazia Chou MR#: [id number] : 1990 Acct:[id number] Age/Sex: 33 / F ADM Date: 09/15/24 Loc: ER Room: Type: [facility] ER Attending Dr: Copies to: Sailaja Anderson [...] Wiley Shetty M.D.09/15/2024 3:56 PM Dictation Location: [place] [address] Transcribed By: [facility] 09/15/241555 Dictated By: Wiley Shetty II, MD 09/15/241555 Signed By: 09/15/241555 Normal [facility] aPTT in Platelet poor plasma by Coagulation assayOrdered By: Sailaja Anderson on 09-15-2024 aPTT Coag (PPP) [Time] Activated partial thromboplastin time (aPTT) in platelet poor plasma by coagulation a 25.1-36.5 [facility] Comment on above: A hematocrit value g reater than 55% may lead to inaccurate results in coagulation testing. Patients having hematocrit values >55% require a special collection tube for coagulation studies. Please contact the laboratory at [phone] for redraw instructions. pH Test strip (U)Ordered By: Sailaja Anderson on 09-15-2024 pH (U) pH of Urine by Test strip 5.0-9.0 [facility] TRANSTHORACIC ECHO (TTE) COM PLETEon 09-13-2024 TRANSTHORACIC ECHO (TTE) COMPLETE [address], [address] [address] TRANSTHORACIC ECHOCARDIOGRAM REPORT Patient Name: SHAZIA JOSÉ ANTONIO Reading Physician: [id number] Adithya Boswell MD, [facility] Study Date: 09/13/2024 Ordering Provider: [id number] ALEAH HOWARD MRN/PID: [id number] Fellow: Nurse: Date of /Age: 4 1990 / 33 years Institutional Research Coordinator: Julissa Licona RDCS, RVT Gender Assigned at F Additional Staff: : Height: 170.18 cm Admit Date: Weight: 85.28 kg Admission Status: BSA / BMI: 1.97 m2 / 29.45 Department Location: [facility] kg/m2 [facility] Blood Pressure: 118 /76 mmHg Study Type: TRANSTHORACIC ECHO (TTE) COMPLETE Diagnosis/ICD: Angina pectoris, unspecified-I20.9; Shortness of breath-R06.02; Palpitations-R00.2; Family history of ischemic heart disease and other diseases of the circulatory system-Z82.49; Essential (primary) hypertension-I10 Indication: Tobacco Abuse, Anxiety/Depression, Pseudotumor Cerebri, ETOH Abuse, Bipolar Disorder, History of Gastric Bypass CPT Codes: Echo Complete w Full Doppler-71004 Study Detail: The following Echo studies were [...] 0.7 m/s (0.6-0.9m/s) PV Max P.1 mmHg [id number] Adithya Boswell MD, FACC Electronically signed on 09/13/2024 at 4:00:19 PM Final Normal [facility] US Heart TransthoracicOrdere d By: Adithya Boswell on 09-13-2024 Aortic Valve Area by Continuity of Peak Velocity 2.48 cm2 [facility] Work Phone: Aortic Valve Area by Continuity of VTI 2.66 cm2 [facility] Work Phone: AV mn grad 4 mmHg [facility] Work Phone: AV pk grad 8 mmHg [facility] Work Phone: AV pk joellen 1.43 m/s [facility] Work Phone: LV A4C EF 67.8 [facility] Work Phone: LV Biplane EF 68 % [facility] Work Phone: [phone] LV EF 68 % [facility] Work Phone: LVIDd 5.01 cm [facility] Work Phone: LVOT diam 2.2 cm [facility] Work Phone: MV avg E/e' ratio 6.6 [facility] Work Phone: MV E/A ratio 1.52 [facility] Work Phone: RVSP 27 mmHg [facility] Work Phone: [facility] Work Phone: US [facility]icon [facility] [address] [facility], [address], [place] [address] TRANSTHORACIC ECHOCARDIOGRAM REPORT Patient Name: SHAZIA CHOU Reading Physician: [id number] Adithya Boswell MD, [facility] Study Date: 09/13/2024 Ordering Provider: [id number] ALEAH HOWARD MRN/PID: [id number] Fellow: Nurse: Date of /Age: 4 1990 / 33 years Institutional Research Coordinator: Julissa Licona RDCS, RVT Gender Assigned at F Additional Staff: : Height: 170.18 cm Admit Date: Weight: 85.28 kg Admission Status: BSA / BMI: 1.97 m2 / 29.45 Department Location: [facility] kg/m2 [facility] Blood Pressure: 118 /76 mmHg Study Type: TRANSTHORACIC ECHO (TTE) COMPLETE Diagnosis/ICD: Angina pectoris, unspecified-I20.9; Shortness of breath-R06.02; Palpitations-R00.2; Family history of ischemic heart disease and other diseases of the circulatory system-Z82.49; Essential (primary) hypertension-I10 Indication: Tobacco Abuse, Anxiety/Depression, Pseudotumor Cerebri, ETOH Abuse, Bipolar Disorder, History of Gastric Bypass CPT Codes: Echo Complete w Full Doppler-80391 Study Detail: The following Echo studies were [...] included)... Adithya Jenkins M D - 09/13/2024 [facility] [address] [place] [address], [address], [place] [address] TRANSTHORACIC ECHOCARDIOGRAM REPORT Patient Name: SHAZIA ANTONYJOEL Reading Physician: [id number] Adithya Boswell MD, [facility] Study Date: 09/13/2024 Ordering Provider: [id number] ALEAH HOWARD MRN/PID: [id number] Fellow: Nurse: Date of /Age: 4 1990 / 33 years Institutional Research Coordinator: Julissa Licona RDCS, T Gender Assigned at F Additional Staff: : Height: 170.18 cm Admit Date: Weight: 85.28 kg Admission Status: BSA / BMI: 1.97 m2 / 29.45 Department Location: [facility] kg/m2 [facility] Blood Pressure: 118 /76 mmHg Study Type: TRANSTHORACIC ECHO (TTE) COMPLETE Diagnosis/ICD: Angina pectoris, unspecified-I20.9; Shortness of breath-R06.02; Palpitations-R00.2; Family history of ischemic heart disease and other diseases of the circulatory system-Z82.49; Essential (primary) hypertension-I10 Indication: Tobacco Abuse, Anxiety/Depression, Pseudotumor Cerebri, ETOH Abuse, Bipolar Disorder, History of Gastric Bypass CPT Codes: Echo Complete w Full Doppler-37528 Study Detail: The following Echo studies were [...] 0.7 m/s (0.6-0.9m/s) PV Max P.1 mmHg [id number] Adithya Boswell MD, FAC Electronically signed on 09/13/2024 at 4:00:19 PM Final [facility] Work Phone: EBV Early Abon 08-19-2024 EBV early diffuse IgG Qn (S) <9.0 Invalid Interpretation Code 0.0-8.9 [facility] Comment on above: Result Comment: Nega tive < 9.0 Equivocal 9.0 - 10.9 Positive >10.9 Performed at: [facility] [address] [id number] PhD Cordelia Madera Performed By: #### 1 [id number] #### [facility] [address] [place] [address] CHEMISTRYOrdered By: SYSTEM SYSTEM on 08-18-2024 Ferritin [...] By: Rayne Pinto on 08-18-2024 Test Code 014474 1 Invalid Interpretation Code [facility] Test Name a1C Invalid Interpretation Code [facility] ECG 12 Leadon 08-16-2024 [facility] Work Phone: 25(OH)D3 [facility] 25-hydroxyvitamin D3 [Mass/Vol] 41.9 ng/mL Normal 31.0-80.0 [facility] Comment on above: Order Comment: Speci men Type: BLOOD SPECIMENOrdering Facility: [facility] Address: [address] [place] [address] Result Comment: Clas sification of 25 [place] Vitamin D status: Deficiency/Insufficiency: < or = 30 ng/ml. Sufficiency/Optimal Levels: 31-80 ng/mL Toxicity: > 100 ng/mL. Test performed by chemiluminescent immunoassay. Performed By: #### 1 989-3 ####[facility] [id number] [place] [address] [place] CBC W Auto Differential pane l (Bld)on 07-26-2024 Basophils (Bld) [#/Vol] 0.05 10*3/uL Normal <0.11 [facility] Comment on above: Order Comment: Speci men Type: BLOOD SPECIMEN Ordering Facility: [facility] Address: [address] [place] [address] Performed By: #### 5 7021-8 #### [facility] CLIA [id number] [address] [place] [address] Basophils/100 WBC (Bld) 0.4 % Normal [facility] Comment on above: Order Comment: Speci men Type: BLOOD SPECIMEN Ordering Facility: [facility] Address: [address] [place] [address] Performed By: #### 5 7021-8 #### [facility] CLIA [id number] [address] [place] [address] Differential cell count method Nom (Bld) Auto Normal [facility] Comment on above: Order Comment: Speci men Type: BLOOD SPECIMEN Ordering Facility: [facility] Address: [address] [place] [address] Performed By: #### 5 7021-8 #### [facility] CLIA [id number] [address] [place] [address] Eosinophils (Bld) [#/Vol] 0.29 10*3/uL Normal <0.46 [facility] Comment on above: Order Comment: Speci men Type: BLOOD SPECIMEN Ordering Facility: [facility] Address: [address] [place] [address] Performed By: #### 5 7021-8 #### [facility] CLIA [id number] [address] [place] [address] Eosinophils/100 WBC (Bld) 2.3 % Normal [facility] Comment on above: Order Comment: Speci men Type: BLOOD SPECIMEN Ordering Facility: [facility] Address: [address] [place] [address] Performed By: #### 5 7021-8 #### [facility] CLIA [id number] [address] [place] [address] Erythrocyte distribution width (RBC) [Ratio] 16.4 % High 11.5-15.0 [facility] Comment on above: Order Comment: Speci men Type: BLOOD SPECIMEN Ordering Facility: [facility] Address: [address] [place] [address] Performed By: #### 5 7021-8 #### [facility] CLIA [id number] [address] [place] [address] Hematocrit (Bld) [Volume fraction] 38.2 % Normal 36.0-46.0 [facility] Comment on above: Order Comment: Speci men Type: BLOOD SPECIMEN Ordering Facility: [facility] Address: [address] [place] [address] Performed By: #### 5 7021-8 #### [facility] CLIA [id number] [address] [place] [address] Hemoglobin (Bld) [Mass/Vol] 13.0 g/dL Normal 11.5-15.5 [facility] Comment on above: Order Comment: Speci men Type: BLOOD SPECIMEN Ordering Facility: [facility] Address: [address] [place] [address] Performed By: #### 5 7021-8 #### [facility] CLIA [id number] [address] [place] [address] Immature granulocytes (Bld) [#/Vol] 0.04 10*3/uL Normal <0.10 [facility] Comment on above: Order Comment: Speci men Type: BLOOD SPECIMEN Ordering Facility: [facility] Address: [address] [place] [address] Performed By: #### 5 7021-8 #### [facility] CLIA [id number] [address] [place] [address] Immature granulocytes/100 WBC (Bld) 0.3 % Normal [facility] Comment on above: Order Comment: Speci men Type: BLOOD SPECIMEN Ordering Facility: [facility] Address: [address] [place] [address] Performed By: #### 5 7021-8 #### [facility] CLIA [id number] [address] [place] [address] Lymphocytes (Bld) [#/Vol] 1.78 10*3/uL Normal 1.00-4.00 [facility] Comment on above: Order Comment: Speci men Type: BLOOD SPECIMEN Ordering Facility: [facility] Address: [address] [place] [address] Performed By: #### 5 7021-8 #### [facility] CLIA [id number] [address] [place] [address] Lymphocytes/100 WBC (Bld) 14.4 % Normal [facility] Comment on above: Order Comment: Speci men Type: BLOOD SPECIMEN Ordering Facility: [facility] Address: [address] [place] [address] Performed By: #### 5 7021-8 #### [facility] CLIA [id number] [address] [place] [address] MCH (RBC) [Entitic mass] 31.4 pg Normal 26.0-34.0 [facility] Comment on above: Order Comment: Speci men Type: BLOOD SPECIMEN Ordering Facility: [facility] Address: [address] [place] [address] Performed By: #### 5 7021-8 #### [facility] CLIA [id number] [address] [place] [address] MCHC (RBC) [Mass/Vol] 34.0 g/dL Normal 30.5-36.0 [facility] Comment on above: Order Comment: Speci men Type: BLOOD SPECIMEN Ordering Facility: [facility] Address: [address] [place] [address] Performed By: #### 5 7021-8 #### [facility] CLIA [id number] [address] [place] [address] MCV (RBC) [Entitic vol] 92.3 fL Normal 80.0-100.0 [facility] Comment on above: Order Comment: Speci men Type: BLOOD SPECIMEN Ordering Facility: [facility] Address: [address] [place] [address] Performed By: #### 5 7021-8 #### [facility] CLIA [id number] [address] [place] [address] Monocytes (Bld) [#/Vol] 0.62 10*3/uL Normal <0.87 [facility] Comment on above: Order Comment: Speci men Type: BLOOD SPECIMEN Ordering Facility: [facility] Address: [address] [place] [address] Performed By: #### 5 7021-8 #### [facility] CLIA [id number] [address] [place] [address] Monocytes/100 WBC (Bld) 5.0 % Normal [facility] Comment on above: Order Comment: Speci men Type: BLOOD SPECIMEN Ordering Facility: [facility] Address: [address] [place] [address] Performed By: #### 5 7021-8 #### [facility] CLIA [id number] [address] [place] [address] Neutrophils (Bld) [#/Vol] 9.58 10*3/uL High 1.45-7.50 [facility] Comment on above: Order Comment: Speci men Type: BLOOD SPECIMEN Ordering Facility: [facility] Address: [address] [place] [address] Performed By: #### 5 7021-8 #### [facility] CLIA [id number] [address] [place] [address] Neutrophils/100 WBC (Bld) 77.6 % Normal [facility] Comment on above: Order Comment: Speci men Type: BLOOD SPECIMEN Ordering Facility: [facility] Address: [address] [place] [address] Performed By: #### 5 7021-8 #### [facility] CLIA [id number] [address] [place] [address] Nucleated RBC (Bld) [#/Vol] 10*3/uL Normal <0.01 [facility] Comment on above: Order Comment: Speci men Type: BLOOD SPECIMEN Ordering Facility: [facility] Address: [address] [place] [address] Performed By: #### 5 7021-8 #### [facility] CLIA [id number] [address] [place] [address] Nucleated RBC/100 WBC (Bld) [Ratio] 0.0 /100 WBC Normal [facility] Comment on above: Order Comment: Speci men Type: BLOOD SPECIMEN Ordering Facility: [facility] Address: [address] [place] [address] Performed By: #### 5 7021-8 #### [facility] CLIA [id number] [address] [place] [address] Platelet mean volume (Bld) [Entitic vol] 10.8 fL Normal 9.0-12.7 [facility] Comment on above: Order Comment: Speci men Type: BLOOD SPECIMEN Ordering Facility: [facility] Address: [address] [place] [address] Performed By: #### 5 7021-8 #### [facility] [facility] CLIA [id number] [address] [place] [address] Platelets (Bld) [#/Vol] 302 10*3/uL Normal 150-400 [facility] Comment on above: Order Comment: Speci men Type: BLOOD SPECIMEN Ordering Facility: [facility] Address: [address] [place] [address] Performed By: #### 5 7021-8 #### [facility] CLIA [id number] [address] [place] [address]65 RBC (Bld) [#/Vol] 4.14 10*6/uL Normal 3.90-5.20 [facility] Comment on above: Order Comment: Speci men Type: BLOOD SPECIMEN Ordering Facility: [facility] Address: [address] [place] [address] Performed By: #### 5 7021-8 #### [facility] CLIA [id number] [address] [place] [address] [place] [address] WBC (Bld) [#/Vol] 12.36 10*3/uL High 3.70-11.00 [facility] Comment on above: Order Comment: Speci men Type: BLOOD SPECIMEN Ordering Facility: [facility] Address: [address] [place] [address] Performed By: #### 5 7021-8 #### [facility] CLIA [id number] [address] [place] [address]02 Comprehensive metabolic 2000 panelon 07-26-2024 Albumin [Mass/Vol] 4.7 g/dL Normal 3.9-4.9 [facility] Comment on above: Order Comment: Speci men Type: BLOOD SPECIMEN Ordering Facility: [facility] Address: [address] [place] [address] Performed By: #### 5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 [facility] ED Traumaon 03-08-2024 ED Trauma [id number] 0TIFF Normal [facility] MR Biliary ducts and Pancrea tic duct WO and W contrast Ramón 03-08-2024 * * *Final Report* * * DATE OF EXAM: Mar 08 2024 11:04AM [facility] 0730 - MRI PANC/TANMAY WO/W IVCON / [...] Lower chest: Unremarkable. DIVISION OF RADIOLOGY Provider, [facility] Mahnaz [facility] - 03/08/2024 * * *Final Report* * * DATE OF EXAM: Mar 08 2024 11:04AM [facility] 0730 - MRI PANC/TANMAY WO/W IVCON [...] not definitively communicate with the pancreatic ducts. Gear Tester: WILLIAM Transcribe Date/Time: Mar 08 2024 1:37P Dictated by : TAVARES PENA MD This examination was interpreted and the report reviewed and electronically signed by: SUN LOREDO MD on Mar 08 2024 3:08PM [facility] MR Unspecified body region 3 D post processingon 03-08-2024 * * *Final Report* * * DATE OF EXAM: Mar 08 2024 11:04AM [facility] 0280 - MRI 3D POST PROCESSING [...] Lower chest: Unremarkable. DIVISION OF RADIOLOGY Provider, [facility] - 03/08/2024 * * *Final Report* * * DATE OF EXAM: Mar 08 2024 11:04AM [facility] 0280 - MRI 3D POST PROCESSING [...] not definitively communicate with the pancreatic ducts. [facility] Transcribe Date/Time: Mar 08 2024 1:37P Dictated by : TAVARES PENA MD This examination was interpreted and the report reviewed and electronically signed by: SUN LOREDO MD on Mar 08 2024 3:08PM [facility] MRI 3D POST PROCESSINGon MRI 3D POST PROCESSING * * *Final Report * * * DATE OF EXAM: Mar 08 2024 11:04AM [facility] 0280 - MRI 3D POST PROCESSING [...] not definitively communicate with the pancreatic ducts. Gear Tester: WILLIAM Transcribe Date/Time: Mar 08 2024 1:37P Dictated by : TAVARES PENA MD This examination was interpreted and the report reviewed and electronically signed by: SUN LOREDO MD on Mar 08 2024 3:08PM EST [id number] Normal [facility] MRI PANC/TANMAY WO/W IVCONon MRI PANC/TANMAY WO/W IVCON * * *Final Report* * * DATE OF EXAM: Mar 08 2024 11:04AM [facility] 0730 - MRI PANC/TANMAY WO/W IVCON [...] not definitively communicate with the pancreatic ducts. Gear Tester: WILLIAM Transcribe Date/Time: Mar 08 2024 1:37P Dictated by : TAVARES PENA MD This examination was interpreted and the report reviewed and electronically signed by: SUN LOREDO MD on Mar 08 2024 3:08PM EST [id number] Normal [facility] No Panel Informationon 03-08 IMPRESSION: Stable cystic structure inferior to the pancreatic body when compared to 08/18/2023. No worrisome features. This remains indeterminate and does not definitively communicate with the pancreatic ducts. Gear Tester: [facility] Transcribe Date/Time: Mar 08 2024 1:37P Dictated by : TAVARES PENA MD This examination was interpreted and the report reviewed and electronically signed by: SUN LOREDO MD on Mar 08 2024 3:08PM [facility] DIVISION OF RADIOLOGY Radiology Study observation (narrative) [facility] No Panel InformationOrdered By: Ccf Provider on 03-08-2024 [facility] Prescriptions/Work Noteson 0 03-08-2024 Prescriptions/Work Notes [id number] 0TIFF Normal [facility] Comprehensive metabolic 2000 panelon 02-25-2024 Albumin [Mass/Vol] 4.5 g/dL Normal 3.9-4.9 [facility] Comment on above: Order Comment: Speci men Type: BLOOD SPECIMENOrdering Facility: [facility] Address: [address] [place] [address] Performed By: #### 2 4323-8 ####[facility] LABCLIA [id number] [place] [address] ALP [Catalytic activity/Vol] 76 U/L Normal 34-123 [facility] Comment on above: Order Comment: Speci men Type: BLOOD SPECIMENOrdering Facility: [facility] Address: [address] [place] [address] Performed By: #### 2 4323-8 ####[facility] LABCLIA [id number] [place] [address] ALT [Catalytic activity/Vol] 14 U/L Normal 7-38 [facility] Comment on above: Order Comment: Speci men Type: BLOOD SPECIMENOrdering Facility: [facility] Address: [address] [place] [address] Performed By: #### 2 4323-8 ####[facility] LABCLIA [id number] [place] [address] Anion gap [Moles/Vol] 8 mmol/L Normal 8-15 [facility] Comment on above: Order Comment: Speci men Type: BLOOD SPECIMENOrdering Facility: [facility] Address: [address] [place] [address] Performed By: #### 2 4323-8 ####[facility] LABCLIA [id number] [place] [address] AST [Catalytic activity/Vol] 20 U/L Normal 13-35 [facility] Comment on above: Order Comment: Speci men Type: BLOOD SPECIMENOrdering Facility: [facility] Address: [address] [place] [address] Performed By: #### 2 4323-8 ####[facility] LABCLIA [id number] [place] [address] Bilirubin [Mass/Vol] 0.3 mg/dL Normal 0.2-1.3 [facility] Comment on above: Order Comment: Speci men Type: BLOOD SPECIMENOrdering Facility: [facility] Address: [address] [place] [address] Performed By: #### 2 4323-8 ####[facility] LABCLIA [id number] [place] [address] Calcium [Mass/Vol] 10.5 mg/dL High 8.5-10.2 [facility] Comment on above: Order Comment: Speci men Type: BLOOD SPECIMENOrdering Facility: [facility] Address: [address] [place] [address] Performed By: #### 2 4323-8 ####[facility] LABCLIA [id number] [place] [address] Chloride [Moles/Vol] 107 mmol/L Normal 98-107 [facility] Comment on above: Order Comment: Speci men Type: BLOOD SPECIMENOrdering Facility: [facility] Address: [address] [place], [place] [address] Performed By: #### 2 4323-8 ####[facility] LABCLIA [id number] [place] [address] CO2 [Moles/Vol] 27 mmol/L Normal 22-30 [facility] Comment on above: Order Comment: Speci men Type: BLOOD SPECIMENOrdering Facility: [facility] Address: [address] [place] [address] Performed By: #### 2 4323-8 ####[facility] LABCLIA [id number] [place] [address] Creatinine [Mass/Vol] 0.68 mg/dL Normal 0.58-0.96 [facility] Comment on above: Order Comment: Speci men Type: BLOOD SPECIMENOrdering Facility: [facility] Address: [address] [place] [address] Performed By: #### 2 4323-8 ####[facility] LABCLIA [id number] [place] [address] Creatinine and Glomerular filtration rate.predicted panel (S/P/Bld) 117 mL/min/1.73m??? Normal >=60 [facility] Comment on above: Order Comment: Philip men Type: BLOOD SPECIMENOrdering Facility: [facility] Address: [address] [place] [address] Result Comment: Brenda mated Glomerular Filtration Rate [...] actual GFR. Performed By: #### 2 4323-8 ####[facility] LABCLIA [id number] [place] [address] Glucose [Mass/Vol] 98 mg/dL Normal 74-99 [facility] Comment on above: Order Comment: Philip birmingham Type: BLOOD SPECIMENOrdering Facility: [facility] Address: [address] [address] Result Comment: The [place] Diabetes Association (ADA) provides guidance for cutoff [...] Standards of Medical Care in Diabetes 2016, [place] Diabetes Association. Diabetes Care. 2016.39(Suppl 1). Performed By: #### 2 4323-8 ####[facility] LABCLIA [id number] [place] [address] Potassium [Moles/Vol] 4.5 mmol/L Normal 3.7-5.1 [facility] Comment on above: Order Comment: Speci men Type: BLOOD SPECIMENOrdering Facility: [facility] Address: [address] [place] [address] Performed By: #### 2 4323-8 ####[facility] LABCLIA [id number] [place] [address] Protein [Mass/Vol] 7.3 g/dL Normal 6.3-8.0 [facility] Comment on above: Order Comment: Speci men Type: BLOOD SPECIMENOrdering Facility: [facility] Address: [address] [place] [address] Performed By: #### 2 4323-8 ####[facility] LABCLIA [id number] [place] [address] Sodium [Moles/Vol] 142 mmol/L Normal 136-144 [facility] Comment on above: Order Comment: Speci men Type: BLOOD SPECIMENOrdering Facility: [facility] Address: [address] [place] [address] Performed By: #### 2 4323-8 ####[facility] LABCLIA [id number] [place] [address] Urea nitrogen [Mass/Vol] 10 mg/dL Normal 7-21 [facility] Comment on above: Order Comment: Speci men Type: BLOOD SPECIMENOrdering Facility: [facility] Address: [address] [place] [address] Performed By: #### 2 4323-8 ####[facility] LABCLIA [id number] [place] [address] HCV Ab Ser Qlon 02-25-2024 HCV Ab Ql (S) Negative Normal Negative [facility] Comment on above: Order Comment: Speci men Type: BLOOD SPECIMENOrdering Facility: [facility] Address: [address] [place] [address] Result Comment: The result suggests no evidence of active infection with Hepatitis C virus. Should recent infection be suspected, repeat testing may be considered 4-6 weeks after this draw. Performed By: #### 1 6128-1 ####[facility] LABCLIA [id number] [place] [address] [place] HIV 1+2 Ab IA Qlon HIV 1 and 2 Ab IA.rapid Nom (S/P/Bld) Normal [facility] Comment on above: Order Comment: Speci men Type: BLOOD SPECIMEN [facility] Address: [address] [place] [address] Result Comment: Test not indicated. Performed By: #### 5 5454-3 #### [facility] CLIA [id number] [address] [place] [address] [place] HIV 1+2 Ab+HIV1 p24 Ag IA Ql Non-Reactive Normal Nonreactive [facility] Comment on above: Order Comment: Speci men Type: BLOOD SPECIMEN [facility] Address: [address] [place] [address] Performed By: #### 5 5454-3 #### [facility] CLIA [id number] [address] [place] [address] [place] HIV immunoassay testing algorithm interpretation (S/P/Bld) [Interp] Normal [facility] Comment on above: Order Comment: Speci men Type: BLOOD SPECIMEN [facility] Address: [address] [place] [address] Result Comment: No e vidence of HIV-1 or HIV-2 infection. Should recent infection be suspected, repeat testing may be considered 2-3 weeks after this draw. [place] Rev. Code 3701.243(E): This information has been [...] diagnoses. Performed By: #### 5 5454-3 #### [facility] CLIA [id number] [address] [place] [address] [place] HbA1c (Bld)on 02-25-2024 Average glucose Estimated from glycated hemoglobin (Bld) [Mass/Vol] 111 mg/dL Normal [facility] Comment on above: Order Comment: Speci men Type: BLOOD SPECIMEN [facility] Address: [address] [place] [address] Result Comment: eAG: (Estimated average glucose) is a calculated value from HgbA1c and is sales representative jewelry of the average blood glucose level in the last 2-3 month period. Performed By: #### 5 5454-3 #### [facility] CLIA [id number] [address] [place] [address] [place] HbA1c (Bld) [Mass fraction] 5.5 % Normal 4.3-5.6 [facility] Comment on above: Order Comment: Speci men Type: BLOOD SPECIMEN [facility] Address: [address] [place] [address] Result Comment: Amer [place] Diabetes Association guidelines indicate that patients with HgbA1c in the range 5.7-6.4% are at increased risk for development of diabetes, and intervention by lifestyle modification may be beneficial. HgbA1c greater or equal to 6.5% is considered diagnostic of diabetes. Performed By: #### 5 5454-3 #### [facility] CLIA [id number] [address] [place] [address] [place] Lipid 1996 panelon 4 Cholesterol [Mass/Vol] 142 mg/dL Normal <200 [facility] Comment on above: Order Comment: Speci men Type: BLOOD SPECIMEN [facility] Address: [address] [place] [address] Result Comment: <200 mg/dL, Desirable 200-239 mg/dL, Borderline high >239 mg/dL, High Performed By: #### 5 5454-3 #### [facility] CLIA [id number] [address] [place] [address] [place] Cholesterol in HDL [Mass/Vol] 72 mg/dL Normal >39 [facility] Comment on above: Order Comment: Speci men Type: BLOOD SPECIMEN [facility] Address: [address] [place] [address] Result Comment: 40-5 9 mg/dL, Acceptable >59 mg/dL, High: Negative risk factor for coronary heart disease <40 mg/dL, Low: Positive risk factor for coronary heart disease Performed By: #### 5 5454-3 #### [facility] CLIA [id number] [address] [place] [address] [place] Cholesterol in LDL [Mass/Vol] 60 mg/dL Normal <100 [facility] Comment on above: Order Comment: Speci men Type: BLOOD SPECIMEN [facility] Address: [address] [place] [address] Result Comment: <100 mg/dL, Optimal 100-129 mg/dL, Near optimal/above optimal 130-159 mg/dL, Borderline high 160-189 mg/dL, High >189 mg/dL, Very high Secondary prevention optimal LDL Cholesterol levels are recommended to be < 70 mg/dL Performed By: #### 5 5454-3 #### [facility] CLIA [id number] [address] [place] [address] [place] Cholesterol in LDL/Cholesterol in HDL [Mass ratio] 0.83 {ratio} Normal <2.54 [facility] Comment on above: Order Comment: Philip birmingham Type: BLOOD SPECIMEN [facility] Address: [address] [place] [address] Result Comment: Eric kasper: 1. National Cholesterol Education Program ATP III Guideline At-A-Glance Quick Desk Reference: National Heart, Lung, and Blood [place]. National Institutes of Health. 2001: NIH Publication No. 01-3305. 2. An International Atherosclerosis Society position paper: global recommendations for the management of dyslipidemia: executive summary, Atherosclerosis. 2014: 232(2):410-413. Performed By: #### 5 5454-3 #### [facility] CLIA [id number] [address] [place] [address] [place] Cholesterol in VLDL [Mass/Vol] 10 mg/dL Normal <30 [facility] Comment on above: Order Comment: Philip birmingham Type: BLOOD SPECIMEN [facility] Address: [address] [place] [address] Performed By: #### 5 5454-3 #### [facility] CLIA [id number] [address] [place] [address] [place] Cholesterol non HDL [Mass/Vol] 70 mg/dL Normal <130 [facility] Comment on above: Order Comment: Philip birmingham Type: BLOOD SPECIMEN [facility] Address: [address] [place] [address] Result Comment: <130 mg/dL, Optimal 130-159 mg/dL, Near optimal/above optimal 160-189 mg/dL, Borderline high 190-219 mg/dL, High >219 mg/dL, Very high Secondary prevention optimal non HDL Cholesterol levels are recommended to be <100 mg/dL Performed By: #### 5 5454-3 #### [facility] CLIA [id number] [address] [place] [address] [place] Cholesterol.total/Chol esterol in HDL [Mass ratio] 1.97 {ratio} Normal <5.10 [facility] Comment on above: Order Comment: Speci men Type: BLOOD SPECIMEN [facility] Address: [address] [place] [address] Performed By: #### 5 5454-3 #### [facility] CLIA [id number] [address] [place] [address] [place] FASTING TIME 12 hrs Normal [facility] Comment on above: Order Comment: Speci men Type: BLOOD SPECIMEN [facility] Address: [address] [place] [address] Performed By: #### 5 5454-3 #### [facility] CLIA [id number] [address] [place] [address] [place] Triglyceride [Mass/Vol] 51 mg/dL Normal <150 [facility] Comment on above: Order Comment: Speci men Type: BLOOD SPECIMEN [facility] Address: [address] [place] [address] Result Comment: <150 mg/dL, Normal 150-199 mg/dL, Borderline high 200-499 mg/dL, High >499 mg/dL, Very high Performed By: #### 5 5454-3 #### [facility] CLIA [id number] [address] [place] [address] [place] CBC with Diffon 01-13-2024 Abs. Basophil 0.08 k/uL Normal 0.00-0.20 [facility] Comment on above: Performed By: #### F EBC CDP, FERI #### [address] [place] [address] Control Room Tender: Harpal Adair MD Abs.Imm.Granulocyte 0.05 k/uL Normal 0.00-0.30 [facility] Comment on above: Performed By: #### F EBC CDP, FERI #### [address] [place] [address] Control Room Tender: Harpal Adair MD Abs.Neutrophil (Seg) 7.68 k/uL Normal 1.50-8.10 [facility] Comment on above: Performed By: #### F EBC CDP, FERI #### [facility] [employer] [address] [place] [address] Control Room Tender: Harpal Adair MD Basophils/100 WBC (Bld) 1 % Normal 0-2 [facility] Comment on above: Performed By: #### F EBC, CDP, FERI #### [facility] [employer] [address] [place] [address] Control Room Tender: Harpal Adair MD Eosinophils (Bld) [#/Vol] 0.25 10*3/uL Normal 0.00-0.44 [facility] Comment on above: Performed By: #### F EBC, CDP, FERI #### [address] [address] Control Room Tender: Harpal Adair MD Eosinophils/100 WBC (Bld) 2 % Normal 1-4 [facility] Comment on above: Performed By: #### F EBC CDP, FERI #### [facility] [employer] [address] [place] [address] Control Room Tender: Harpal Adair MD Erythrocyte distribution width (RBC) [Ratio] 18.6 % High 11.8-14.4 [facility] Comment on above: Performed By: #### F EBC, CDP, FERI #### [facility] [employer] [address] [place] [address] Control Room Tender: Harpal Adair MD Hematocrit (Bld) [Volume fraction] 36.7 % Normal 36.3-47.1 [facility] Comment on above: Performed By: #### F EBC, CDP, FERI #### [facility] [employer] [address] [place], [place] [id number] Control Room Tender: Harpal Adair MD Hemoglobin (Bld) [Mass/Vol] 11.3 g/dL Low 11.9-15.1 [facility] Comment on above: Performed By: #### F EBC CDP, FERI #### [facility] [employer] [address] [place] [address] Control Room Tender: Harpal Adair MD Immature granulocytes/100 WBC (Bld) 0 % Normal 0 [facility] Comment on above: Performed By: #### F EBC, CDP, FERI #### [facility] [employer] [address] [place] [address] Control Room Tender: Harpal Adair MD Lymphocytes (Bld) [#/Vol] 2.30 10*3/uL Normal 1.10-3.70 [facility] Comment on above: Performed By: #### F EBC CDP, FERI #### [address] [address] Control Room Tender: Harpal Adair MD Lymphocytes/100 WBC (Bld) 21 % Low 24-43 [facility] Comment on above: Performed By: #### F EBC CDP, FERI #### [facility] [employer] [address] [place] [address] Control Room Tender: Harpal Adair MD MCH (RBC) [Entitic mass] 28.4 pg Normal 25.2-33.5 [facility] Comment on above: Performed By: #### F EBC CDP, FERI #### [facility] [employer] [address] [place] [address] Control Room Tender: Harpal Adair MD MCHC (RBC) [Mass/Vol] 30.8 g/dL Normal 28.4-34.8 [facility] Comment on above: Performed By: #### F EBC, CDP, FERI #### [facility] [employer] [address] [place] [address] Control Room Tender: Harpal Adair MD MCV (RBC) [Entitic vol] 92.2 fL Normal 82.6-102.9 [facility] Comment on above: Performed By: #### F EBC CDP, FERI #### [address] [address] Control Room Tender: Harpal Adair MD Monocytes (Bld) [#/Vol] 0.77 10*3/uL Normal 0.10-1.20 [facility] Comment on above: Performed By: #### F EBC, CDP, FERI #### [address] [address] Control Room Tender: Harpal Adair MD Monocytes/100 WBC (Bld) 7 % Normal 3-12 [facility] Comment on above: Performed By: #### F EBC CDP, FERI #### [address] [address] Control Room Tender: Harpal Adair MD Neutrophil (Seg) 69 % High 36-65 [facility] Comment on above: Performed By: #### F EBC CDP, FERI #### [address] [address] Control Room Tender: Harpal Adair MD NRBC Automated 0.0 per 100 WBC Normal 0.0 [facility] Comment on above: Performed By: #### F EBC CDP, FERI #### [address] [address] Control Room Tender: Harpal Adair MD Platelet mean volume (Bld) [Entitic vol] 11.4 fL Normal 8.1-13.5 [facility] Comment on above: Performed By: #### F EBC, CDP, FERI #### [facility] [employer] [address] [place] [address] Control Room Tender: Harpal Adair MD Platelets (Bld) [#/Vol] 387 10*3/uL Normal 138-453 [facility] Comment on above: Performed By: #### F EBC, CDP, FERI #### [facility] [place] [address] Control Room Tender: Harpal Adair MD RBC (Bld) [#/Vol] 3.98 10*6/uL Normal 3.95-5.11 [facility] Comment on above: Performed By: #### F EBC, CDP, FERI #### [facility] [address] [place] [address] Control Room Tender: Harpal Adair MD RBC morphology finding Nom (Bld) ANISOCYTOSIS PRESENT Normal [facility] Comment on above: Performed By: #### F EBC, CDP, FERI #### [facility] [address] [place] [address] Control Room Tender: Harpal Adair MD WBC (Bld) [#/Vol] 11.1 10*3/uL Normal 3.5-11.3 [facility] Comment on above: Performed By: #### F EBC, CDP, FERI #### [facility] [address] [place] [address] Control Room Tender: Harpal Adair MD Ferritinon 01-13-2024 Ferritin [Mass/Vol] 9 ng/mL Low 13-150 [facility] Comment on above: Result Comment: FERRITIN Reference Ranges: Adult Males 20 - 60 years: 30 - 400 ng/mL Adult females 17 - 60 years: 13 - 150 ng/mL Adults greater than 60 years: no established reference range Pediatrics: no established reference range Performed By: #### F EBC, CDP, FERI #### [facility] [address] [place] [address] Control Room Tender: Harpal Adair MD Iron Binding Cap.on 01-13-20 24 % Fe Saturation 9 % Low 20-55 [facility] Comment on above: Performed By: #### F EBC, CDP, FERI #### [facility] [address] [place] [address] Control Room Tender: Harpal Adair MD Iron [Mass/Vol] 37 ug/dL Normal 37-145 [facility] Comment on above: Performed By: #### F EBC, CDP, FERI #### [facility] [address] [place] [address] Control Room Tender: Harpal Adair MD Total Fe Binding Cap 390 ug/dL Normal 250-450 [facility] Comment on above: Performed By: #### F EBC, CDP, FERI #### [facility] [address] [place] [address] Control Room Tender: Harpal Adair MD Unbound Fe Bind Cap 353 ug/dL High 112-347 [facility] Comment on above: Performed By: #### F EBC, CDP, FERI #### [facility] [address] [place] [address] Control Room Tender: MD Ernesto Naylor 01-05-2024 [facility] Telephone ([facility]) SHAZIA CHOU ([id number]) 1990 F Date Time Provider Department 01/05/24 ELIA BAIRES [facility] During your visit today, [...] 60 mg by mouth once daily. - mycdjtjluedy-hbe-xmbp-F A-vit K (BARIATRIC MULTIVITAMINS) 45 mg iron- [...] Status:Closed by ELIA BAIRES on 01/05/24 Normal [facility] TOXICOLOGY SCRN W/CONF,URINE on 01-05-2024 Amphetamines Confirm (U) [Mass/Vol] Negative Negative [facility] Comment on above: Cutoff threshold at 1000 ng/mL. Barbiturates Urine Negative Negative [facility] Comment on above: Cutoff threshold at 200 ng/mL. Benzodiazepines Urine Negative Negative [facility] Comment on above: Cutoff threshold at 200 ng/mL. Cannabinoids Screen Ql (U) Sent for confirmation Abnormal Negative [facility] Comment on above: Cutoff threshold at 50 ng/mL. Cocaine Ql (U) Negative Negative [facility] Comment on above: Cutoff threshold at 300 ng/mL. Ethanol (U) [Mass/Vol] mg/dL NINF - 11 mg/dL [facility] Interpretation and review of laboratory results Abnormal [facility] Opiates Screen Ql (U) Negative Negative [facility] Comment on above: Cutoff threshold at 300 ng/mL. oxyCODONE cutoff Screen (U) [Mass/Vol] Negative Negative [facility] Comment on above: Cutoff threshold at 100 ng/mL. Phencyclidine Ql (U) Negative Negative [facility] Comment on above: Cutoff threshold at 25 ng/mL. Immunoassay screen only. Cross reactivity with other substances can occur with immunoassay screening. Detection of any drug(s) in this urine toxicology panel is presumptive only. These tests are for medical purposes only and should not be used for compliance monitoring, legal, or forensic use. [facility] CANNABINOID CONF, URon 01-03 Cannabinoids Confirm (U) [Mass/Vol] 153 ng/mL High <16 [facility] Comment on above: Order Comment: Speci men Type: URINE SPECIMENOrdering Facility: [facility] Address: [address] [place] [address] Result Comment: Tetr ahydrocannabinol carboxylic acid (THCA) is a metabolite of bsjry-6-oupeqlvseutkxfxhjoke which is the main active component of marijuana. Presence of THCA indicates use of marijuana. Performed By: #### [facility] ####[facility] LABCLIA [id number] [address] [place] ([facility]) Normal [facility] Comment on above: Order Comment: Speci men Type: URINE SPECIMENOrdering Facility: [facility] Address: [address] [place] [address] Result Comment: This test is for medical use only. This test was developed and its performance characteristics determined by [facility] [place] ([facility]). It has not been cleared or approved by the FDA. [facility] is regulated under CLIA as qualified to perform high-complexity testing. This test is used for clinical purposes. It should not be regarded as investigational or for research. Performed By: #### [facility] ####[facility] LABCLIA [id number] [address] OF [facility] CNOVon 01-04-2024 CNOV [facility] SHAZIA CHOU ([id number]) 1990 F Date Time Provider Department 01/04/24 9:20 AM ELIA BAIRES [facility] During your visit today, [...] She says that she is originally from [facility] however came up to here today [...] to establish with a new psychiatrist at [facility] in [place]. She also sees a counselor weekly. Current [...] in 1 (more content not included)... Normal [facility] SPECIMEN VALIDITY, URINEon 0 01-04-2024 CHROMATE,URINE <10 Normal <50 [facility] Comment on above: Order Comment: Speci men Type: URINE SPECIMENOrdering Facility: [facility] Address: [address] [place] [address] Performed By: #### L [id number] ####[facility] LABCLIA [id number] [place] [address] [place] CREATININE,URINE 33.7 mg/dL Normal 20.0-300.0 [facility] Comment on above: Order Comment: Speci men Type: URINE SPECIMENOrdering Facility: [facility] Address: [address] [place] [address] Performed By: #### L [id number] ####[facility] LABCLIA [id number] [place] [address] [place] NITRITES,URINE <50 Normal <500 [facility] Comment on above: Order Comment: Speci men Type: URINE SPECIMENOrdering Facility: [facility] Address: [address] [place] [address] Performed By: #### L [id number] ####[facility] LABCLIA [id number] [place] [address] [place] OXIDANTS,URINE 70 mg/L Normal <200 [facility] Comment on above: Order Comment: Speci men Type: URINE SPECIMENOrdering Facility: [facility] Address: [address] [place] [address] Performed By: #### L [id number] ####[facility] LABCLIA [id number] [place] [address] [place] pH (U) 5.6 [pH] Normal 4.5-8.0 [facility] Comment on above: Order Comment: Speci men Type: URINE SPECIMENOrdering Facility: [facility] Address: [address] [place] [address] Performed By: #### L [id number] ####[facility] LABCLIA [id number] [place] [address] [place] SPEC GRAVITY,UR 1.019 Normal 1.003-1.035 [facility] Comment on above: Order Comment: Speci men Type: URINE SPECIMENOrdering Facility: [facility] Address: [address] [place] [address] Performed By: #### L [id number] ####[facility] LABIA [id number] [place] [address] [place] SPECIMEN VALIDITY QUALITY Specimen quality results within acceptable limits Normal [facility] Comment on above: Order Comment: Speci men Type: URINE SPECIMENOrdering Facility: [facility] Address: [address] [place] [address] Performed By: #### L [id number] ####[facility] [id number] [place] [address] [place] TOXICOLOGY SCRN W/CONF,URINE on 01-04-2024 Amphetamines Confirm (U) [Mass/Vol] Negative Normal Negative [facility] Comment on above: Order Comment: Speci men Type: URINE SPECIMENOrdering Facility: [facility] Address: [address] [place] [address] Result Comment: Cuto ff threshold at 1000 ng/mL. Performed By: #### U TOXRF ####[facility] [id number] [place] [address] [place] BARBITURATES, URINE Negative Normal Negative [facility] Comment on above: Order Comment: Speci men Type: URINE SPECIMENOrdering Facility: [facility] Address: [address] [place] [address] Result Comment: Cuto ff threshold at 200 ng/mL. Performed By: #### U TOXRF ####[facility] [id number] [place] [address] [place] BENZODIAZEPINES, UR Negative Normal Negative [facility] Comment on above: Order Comment: Speci men Type: URINE SPECIMENOrdering Facility: [facility] Address: [address] [place] [address] Result Comment: Cuto ff threshold at 200 ng/mL. Performed By: #### U TOXRF ####[facility] LABCLIA [id number] [place] [address] [place] Cannabinoids Screen Ql (U) Sent for confirmation Abnormal Negative [facility] Comment on above: Order Comment: Speci men Type: URINE SPECIMENOrdering Facility: [facility] Address: [address] [place] [address] Result Comment: Cuto ff threshold at 50 ng/mL. Performed By: #### U TOXRF ####[facility] LABCLIA [id number] [place] [address] [place] Cocaine Ql (U) Negative Normal Negative [facility] Comment on above: Order Comment: Speci men Type: URINE SPECIMENOrdering Facility: [facility] Address: [address] [place] [address] Result Comment: Cuto ff threshold at 300 ng/mL. Performed By: #### U TOXRF ####[facility] LABCLIA [id number] [place] [address] [place] Ethanol (U) [Mass/Vol] <11 Normal <11 Cl [facility] Comment on above: Order Comment: Speci men Type: URINE SPECIMENOrdering Facility: [facility] Address: [address] [place] [address] Performed By: #### U TOXRF ####[facility] LABCLIA [id number] [place] [address] [place] Opiates Screen Ql (U) Negative Normal Negative [facility] Comment on above: Order Comment: Speci men Type: URINE SPECIMENOrdering Facility: [facility] Address: [address] [place] [address] Result Comment: Cuto ff threshold at 300 ng/mL. Performed By: #### U TOXRF ####[facility] LABCLIA [id number] [place] [address] [place] oxyCODONE cutoff Screen (U) [Mass/Vol] Negative Normal Negative [facility] Comment on above: Order Comment: Speci men Type: URINE SPECIMENOrdering Facility: [facility] Address: [address] [place] [address] Result Comment: Cuto ff threshold at 100 ng/mL. Performed By: #### U TOXRF ####[facility] LABCLIA [id number] [address] OF [facility] Phencyclidine Ql (U) Negative Normal Negative [facility] Comment on above: Order Comment: Speci men Type: URINE SPECIMENOrdering Facility: [facility] Address: [address] [place] [address] Result Comment: Cuto ff threshold at 25 ng/mL. Performed By: #### U TOXRF ####[facility] LABCLIA [id number] [address] STATES OF [facility] ED Noteon 2023 ED Note [id number] IFF Normal [facility] Activated partial thrombopla stin time (aPTT) in platelet poor plasma by coagulation aOrdered By: Marii Christiansen on 12-10-2023 aPTT Coag (PPP) [Time] 28.8 s 25.1-36.5 [facility] Comment on above: A hematocrit value g reater than 55% may lead to inaccurate results in coagulation testing. Patients having hematocrit values >55% require a special collection tube for coagulation studies. Please contact the laboratory at [phone] for redraw instructions. Basophils Auto (Bld) [#/Vol] Ordered By: Marii Christiansen on 12-10-2023 Basophils (Bld) [#/Vol] 0.1 10*3/uL 0.0-0.2 [facility] Basophils/100 WBC Auto (Bld) Ordered By: Marii Christiansen on 12-10-2023 Basophils/100 WBC (Bld) 1.0 % . [facility] Calcium [Mass/volume] in Ser um or PlasmaOrdered By: Marii Christiansen on 12-10-2023 Calcium [Mass/Vol] 9.3 mg/dL 8.6-10.3 [facility] Carbon dioxide, total [Moles /volume] in Serum or PlasmaOrdered By: Marii Christiansen on 12-10-2023 CO2 [Moles/Vol] 26.2 mmol/L 21.0-31.0 [facility] Chloride [Moles/volume] in S tushar or PlasmaOrdered By: Marii Christiansen on 12-10-2023 Chloride [Moles/Vol] 108 mmol/L 98-107 [facility] Choriogonadotropin.beta subu nit [Units/volume] in Serum or PlasmaOrdered By: Marii Christiansen on 12-10-2023 HCG.beta subunit Qn Negative [facility] Creatine kinase [Enzymatic a ctivity/volume] in Serum or PlasmaOrdered By: Marii Christiansen on 12-10-2023 CK [Catalytic activity/Vol] 90 U/L 30-223 [facility] Creatinine [Mass/volume] in Serum or PlasmaOrdered By: Marii Christiansen on 12-10-2023 Creatinine [Mass/Vol] 0.63 mg/dL 0.60-1.20 [facility] Eosinophils Auto (Bld) [#/Vo l]Ordered By: Marii Christiansen on 12-10-2023 Eosinophils (Bld) [#/Vol] 0.1 10*3/uL 0.0-0.45 [facility] Eosinophils/100 WBC Auto (Bl d)Ordered By: Marii Christiansen on 12-10-2023 Eosinophils/100 WBC (Bld) 1.7 % . [facility] Erythrocyte distribution wid th Auto (RBC) [Ratio]Ordered By: Marii Christiansen on 12-10-2023 Erythrocyte distribution width (RBC) [Ratio] 18.2 % 11.9-15.3 [facility] Glucose [Mass/volume] in Ser um or PlasmaOrdered By: Marii Christiansen on 12-10-2023 Glucose [Mass/Vol] 84 mg/dL 70-100 [facility] Comment on above: ADA recommended refe rence rangeRandom Glucose Reference Range is dependent on time and content of last meal. Glucose of more than 200 mg/dL in a nonstressed, ambulatory subject supports the diagnosis of Diabetes Mellitus. Hematocrit Auto (Bld) [Volum e fraction]Ordered By: Marii Christiansen on 12-10-2023 Hematocrit (Bld) [Volume fraction] 34.4 % 34.0-46.4 [facility] Hemoglobin [Mass/volume] in BloodOrdered By: Marii Christiansen on 12-10-2023 Hemoglobin (Bld) [Mass/Vol] 11.2 g/dL 11.8-15.4 [facility] INR in Platelet poor plasma by Coagulation assayOrdered By: Marii Christiansen on 12-10-2023 INR Coag (PPP) [Relative time] 1.0 {INR} [facility] Comment on above: INR Therapeutic [...] RBC Auto (Bld) [#/Vol] 7.1 10*3/uL 3.8-11.6 [facility] Lymphocytes Auto (Bld) [#/Vo l]Ordered By: Marii Christiansen on 12-10-2023 Lymphocytes (Bld) [#/Vol] 1.6 10*3/uL 1.00-4.8 [facility] Lymphocytes/100 WBC Auto (Bl d)Ordered By: Marii Christiansen on 12-10-2023 Lymphocytes/100 WBC (Bld) 21.9 % . [facility] MCH Auto (RBC) [Entitic mass ]Ordered By: Marii Christiansen on 12-10-2023 MCH (RBC) [Entitic mass] 28.8 pg 24.7-34.3 [facility] MCHC Auto (RBC) [Mass/Vol]Or dered By: Marii Christiansen on 12-10-2023 MCHC (RBC) [Mass/Vol] 32.5 g/dL 32.0-35.0 [facility] MCV Auto (RBC) [Entitic vol] Ordered By: Marii Christiansen on 12-10-2023 MCV (RBC) [Entitic vol] 88.7 fL 80-100 [facility] Magnesium [Mass/volume] in S tushar or PlasmaOrdered By: Marii Christiansen on 12-10-2023 Magnesium [Mass/Vol] 1.9 mg/dL 1.9-2.7 [facility] Monocyte distribution width [Entitic volume] in Blood by AutomatedOrdered By: Marii Christiansen on 12-10-2023 Monocyte distribution width Auto (Bld) [Entitic vol] 16.94 % 0.00-20.00 [facility] Monocytes Auto (Bld) [#/Vol] Ordered By: Marii Christiansen on 12-10-2023 Monocytes (Bld) [#/Vol] 0.5 10*3/uL 0.0-0.8 [facility] Monocytes/100 WBC Auto (Bld) Ordered By: Marii Christiansen on 12-10-2023 Monocytes/100 WBC (Bld) 6.4 % . [facility] Natriuretic peptide B [Mass/ Vol]Ordered By: Marii Christiansen on 12-10-2023 Natriuretic peptide B (Bld) [Mass/Vol] 12.0 pg/mL 5-100 [facility] Neutrophils Auto (Bld) [#/Vo l]Ordered By: Marii Christiansen on 12-10-2023 Neutrophils (Bld) [#/Vol] 4.9 10*3/uL 1.8-7.7 [facility] Neutrophils/100 WBC Auto (Bl d)Ordered By: Marii Christiansen on 12-10-2023 Neutrophils/100 WBC (Bld) 69.0 % . [facility] No Panel InformationOrdered By: Marii Christiansen on 12-10-2023 Estimated GFR (CKD-EPI) > 60.0 mL/Min [facility] Creatinine Clearance (Chem 144.76 [facility] Nucleated erythrocytes [Pres ence] in Blood by Automated countOrdered By: Marii Christiansen on 12-10-2023 Nucleated RBC Auto Ql (Bld) 0.1 /100{WBC} 0-0.5 [facility] Phosphate [Mass/volume] in S tushar or PlasmaOrdered By: Marii Christiansen on 12-10-2023 Phosphate [Mass/Vol] 3.7 mg/dL 2.5-4.5 [facility] Platelet mean volume Auto (B ld) [Entitic vol]Ordered By: Marii Christiansen on 12-10-2023 Platelet mean volume (Bld) [Entitic vol] 9.2 fL 6.3-10.7 [facility] Platelets Auto (Bld) [#/Vol] Ordered By: Marii Christiansen on 12-10-2023 Platelets (Bld) [#/Vol] 331 10*3/uL 150-450 [facility] Potassium [Moles/volume] in Serum or PlasmaOrdered By: Marii Christiansen on 12-10-2023 Potassium [Moles/Vol] 4.0 mmol/L 3.5-5.1 [facility] Prothrombin time (PT)Ordered By: Marii Christiansen on 12-10-2023 PT Coag (PPP) [Time] 11.3 s 9.0-12.9 [facility] Comment on above: A hematocrit value g reater than 55% may lead to inaccurate results in coagulation testing. Patients having hematocrit values >55% require a special collection tube for coagulation studies. Please contact the laboratory at [phone] for redraw instructions. RBC Auto (Bld) [#/Vol]Ordere d By: Marii Christiansen on 12-10-2023 RBC (Bld) [#/Vol] 3.88 10*6/uL 3.60-5.00 [facility] Serum or plasma anion gap de terminationOrdered By: Marii Christiansen on 12-10-2023 Anion gap [Moles/Vol] 9.8 mmol/L 6.0-15.0 [facility] Sodium [Moles/volume] in Ser um or PlasmaOrdered By: Marii Christiansen on 12-10-2023 Sodium [Moles/Vol] 140 mmol/L 136-145 [facility] Thyrotropin [Units/volume] i n Serum or PlasmaOrdered By: Marii Christiansen on 12-10-2023 TSH Qn 0.61 m[IU]/L 0.45-5.33 [facility] Thyroxine (T4) free [Mass/vo lume] in Serum or PlasmaOrdered By: Marii Christiansen on 12-10-2023 Free T4 [Mass/Vol] 0.82 ng/dL 0.61-1.12 [facility] Troponin I.cardiac [Mass/vol ume] in Serum or Plasma by Detection limit <= 0.01 ng/Ordered By: Marii Christiansen on 12-10-2023 Troponin I.cardiac DL <= 0.01 ng/mL [Mass/Vol] < 2.3 pg/mL 0.0-15.0 [facility] Urea nitrogen [Mass/volume] in Serum or PlasmaOrdered By: Marii Christiansen on 12-10-2023 Urea nitrogen [Mass/Vol] 14 mg/dL 04-07 [facility] WBC Auto (Bld) [#/Vol]Ordere d By: Marii Christiansen on 12-10-2023 WBC (Bld) [#/Vol] 7.1 10*3/uL 3.8-11.6 [facility] Consent for Treatmenton 11-13 Consent for Treatment [id number] IFF Normal [facility] [place] Mamm Diag w/CAD if perf a [...] very important to your health. The current [employer] and National Comprehensive Cancer [...] Category 1-Negative Recommendation: Normal interval follow-up Normal [facility] US Breast Unilateral Lt Comp leteon 12-09-2023 US Breast Unilateral Lt Complete Exam Date/Time: 12/09/2023 10:07 EDT Reason for Exam: N63.21 Report PLEASE REFER TO THE MAMMOGRAM REPORT. Ordering Provider: Jennie Durand FINAL REPORT Dictated: 12/09/2023 4:28 pm Mychal Cabezas M.D. Signed (Electronic Signature): 12/09/2023 4:28 pm Signed by: Mychal Cabezas M.D. Transcribed by: MARCO Technologist: KYLE Normal [facility] Physician Orderon 12-08-2023 Physician Order [id number] TIFF Normal [facility] CT ABDOMEN PELVIS W IV CONTR Melba [...] Jacob Dillon DO 10/25/23 Final result Normal [facility] CBC panel Auto (Bld)on 08-31 Erythrocyte distribution width (RBC) [Ratio] 14.7 % Normal 11.5-15.0 [facility] Comment on above: Order Comment: Speci men Type: BLOOD SPECIMEN Ordering Facility: [facility] Address: [address] [place] [address] Performed By: #### 5 8410-2 #### [facility] CLIA [id number] [address] [place] [address] [place] Hematocrit (Bld) [Volume fraction] 36.9 % Normal 36.0-46.0 [facility] Comment on above: Order Comment: Speci men Type: BLOOD SPECIMEN Ordering Facility: [facility] Address: [address] [place] [address] Performed By: #### 5 8410-2 #### [facility] CLIA [id number] [address] [place] [address] [place] Hemoglobin (Bld) [Mass/Vol] 11.7 g/dL Normal 11.5-15.5 [facility] Comment on above: Order Comment: Speci men Type: BLOOD SPECIMEN Ordering Facility: [facility] Address: [address] [place] [address] Performed By: #### 5 8410-2 #### [facility] CLIA [id number] [address] [place] [address] [place] MCH (RBC) [Entitic mass] 29.8 pg Normal 26.0-34.0 [facility] Comment on above: Order Comment: Speci men Type: BLOOD SPECIMEN Ordering Facility: [facility] Address: [address] [place] [address] Performed By: #### 5 8410-2 #### [facility] CLIA [id number] [address] [place] [address] [place] MCHC (RBC) [Mass/Vol] 31.7 g/dL Normal 30.5-36.0 [facility] Comment on above: Order Comment: Speci men Type: BLOOD SPECIMEN Ordering Facility: [facility] Address: [address] [place] [address] Performed By: #### 5 8410-2 #### [facility] CLIA [id number] [address] [place] [address] [place] MCV (RBC) [Entitic vol] 93.9 fL Normal 80.0-100.0 [facility] Comment on above: Order Comment: Speci men Type: BLOOD SPECIMEN Ordering Facility: [facility] Address: [address] [place] [address] Performed By: #### 5 8410-2 #### [facility] CLIA [id number] [address] [place] [address] [place] Nucleated RBC (Bld) [#/Vol] 10*3/uL Normal <0.01 [facility] Comment on above: Order Comment: Speci men Type: BLOOD SPECIMEN Ordering Facility: [facility] Address: [address] [place] [address] Performed By: #### 5 8410-2 #### [facility] CLIA [id number] [address] [place] [address] [place] Platelet mean volume (Bld) [Entitic vol] 11.1 fL Normal 9.0-12.7 [facility] Comment on above: Order Comment: Speci men Type: BLOOD SPECIMEN Ordering Facility: [facility] Address: [address] [place] [address] Performed By: #### 5 8410-2 #### [facility] CLIA [id number] [address] [place] [address] [place] Platelets (Bld) [#/Vol] 297 10*3/uL Normal 150-400 [facility] Comment on above: Order Comment: Speci men Type: BLOOD SPECIMEN Ordering Facility: [facility] Address: [address] [place] [address] Performed By: #### 5 8410-2 #### [facility] CLIA [id number] [address] [place] [address] [place] RBC (Bld) [#/Vol] 3.93 10*6/uL Normal 3.90-5.20 [facility] Comment on above: Order Comment: Speci men Type: BLOOD SPECIMEN Ordering Facility: [facility] Address: [address] [place] [address] Performed By: #### 5 8410-2 #### [facility] CLIA [id number] [address] [place] [address] [place] WBC (Bld) [#/Vol] 6.82 10*3/uL Normal 3.70-11.00 [facility] Comment on above: Order Comment: Speci men Type: BLOOD SPECIMEN Ordering Facility: [facility] Address: [address] [place] [address] Performed By: #### 5 8410-2 #### [facility] CLIA [id number] [address] [place] [address] [place] Comprehensive metabolic 2000 panelon 08-31-2023 Albumin [Mass/Vol] 4.4 g/dL Normal 3.9-4.9 [facility] Comment on above: Order Comment: Speci men Type: BLOOD SPECIMEN Ordering Facility: [facility] Address: [address] [place] [address] Performed By: #### L IPNF, 58381-4 #### [facility] CLIA [id number] [address] [place] [address] [place] ALP [Catalytic activity/Vol] 75 U/L Normal 34-123 [facility] Comment on above: Order Comment: Speci men Type: BLOOD SPECIMEN Ordering Facility: [facility] Address: [address] [place] [address] Performed By: #### L IPNF, 20367-3 #### [facility] CLIA [id number] [address] [place] [address] [place] ALT [Catalytic activity/Vol] 16 U/L Normal 7-38 [facility] Comment on above: Order Comment: Speci men Type: BLOOD SPECIMEN Ordering Facility: [facility] Address: [address] [place] [address] Performed By: #### L IPNF, 36932-1 #### [facility] CLIA [id number] [address] [place] [address] [place] Anion gap [Moles/Vol] 11 mmol/L Normal 9-18 [facility] Comment on above: Order Comment: Speci men Type: BLOOD SPECIMEN Ordering Facility: [facility] Address: [address] [place] [address] Performed By: #### L IPNF, #### [facility] CLIA [id number] [address] [place] [address] [place] AST [Catalytic activity/Vol] 21 U/L Normal 13-35 [facility] Comment on above: Order Comment: Speci men Type: BLOOD SPECIMEN Ordering Facility: [facility] Address: [address] [place] [address] Performed By: #### L IPNF, #### [facility] CLIA [id number] [address] [place] [address] [place] Bilirubin [Mass/Vol] 0.2 mg/dL Normal 0.2-1.3 [facility] Comment on above: Order Comment: Speci men Type: BLOOD SPECIMEN Ordering Facility: [facility] Address: [address] [place] [address] Performed By: #### L IPNF, #### [facility] CLIA [id number] [address] [place] [address] [place] Calcium [Mass/Vol] 9.7 mg/dL Normal 8.5-10.2 [facility] Comment on above: Order Comment: Speci men Type: BLOOD SPECIMEN Ordering Facility: [facility] Address: [address] [place] [address] Performed By: #### L IPNF, #### [facility] CLIA [id number] [address] [place] [address] [place] Chloride [Moles/Vol] 106 mmol/L High 97-105 [facility] Comment on above: Order Comment: Speci men Type: BLOOD SPECIMEN Ordering Facility: [facility] Address: [address] [place] [address] Performed By: #### L IPNF, #### [facility] CLIA [id number] [address] [place] [address] [place] CO2 [Moles/Vol] 25 mmol/L Normal 22-30 [facility] Comment on above: Order Comment: Speci men Type: BLOOD SPECIMEN Ordering Facility: [facility] Address: [address] [place] [address] Performed By: #### L IPNF, 81350-6 #### [facility] CLIA [id number] [address] [place] [address] [place] Creatinine [Mass/Vol] 0.55 mg/dL Low 0.58-0.96 [facility] Comment on above: Order Comment: Philip [facility] Type: BLOOD SPECIMEN Ordering Facility: [facility] Address: [address] [place] [address] Performed By: #### L IPNF, 29251-7 #### [facility] CLIA [id number] [address] [place] [address] [place] Creatinine and Glomerular filtration rate.predicted panel (S/P/Bld) 124 mL/min/1.73m??? Normal >=60 [facility] Comment on above: Order Comment: Philip birmingham Type: BLOOD SPECIMEN Ordering Facility: [facility] Address: [address] [place] [address] Result Comment: Brenda mated Glomerular Filtration Rate [...] actual GFR. Performed By: #### L IPNF, 72433-7 #### [facility] CLIA [id number] [address] [place] [address] [place] Glucose [Mass/Vol] 93 mg/dL Normal 74-99 [facility] Comment on above: Order Comment: Philip birmingham Type: BLOOD SPECIMEN Ordering Facility: [facility] Address: [address] [place] [address] Result Comment: The [place] Diabetes Association (ADA) provides guidance for cutoff [...] Standards of Medical Care in Diabetes 2016, [place] Diabetes Association. Diabetes Care. 2016.39(Suppl 1). Performed By: #### L IPNF, #### [facility] CLIA [id number] [address] [place] [address] [place] Potassium [Moles/Vol] 4.7 mmol/L Normal 3.7-5.1 [facility] Comment on above: Order Comment: Speci men Type: BLOOD SPECIMEN Ordering Facility: [facility] Address: [address] [place] [address] Performed By: #### L IPNF, #### [facility] CLIA [id number] [address] [place] [address] [place] Protein [Mass/Vol] 7.3 g/dL Normal 6.3-8.0 [facility] Comment on above: Order Comment: Cecili valencia Type: BLOOD SPECIMEN Ordering Facility: [facility] Address: [address] [place] [address] Performed By: #### L IPNF, #### [facility] CLIA [id number] [address] [place] [address] [place] Sodium [Moles/Vol] 142 mmol/L Normal 136-144 [facility] Comment on above: Order Comment: Cecili men Type: BLOOD SPECIMEN Ordering Facility: [facility] Address: [address] [place] [address] Performed By: #### L IPNF, #### [facility] CLIA [id number] [address] [place] [address] [place] Urea nitrogen [Mass/Vol] 9 mg/dL Normal 7-21 [facility] Comment on above: Order Comment: Cecili valencia Type: BLOOD SPECIMEN Ordering Facility: [facility] Address: [address] [place] [address] Performed By: #### L IPNF, 31249-4 #### [facility] CLIA [id number] [address] [place] [address] [place] LIPID PANEL, NONFASTINGon Cholesterol [Mass/Vol] 154 mg/dL Normal <200 [facility] Comment on above: Order Comment: Cecili men Type: BLOOD SPECIMEN Ordering Facility: [facility] Address: [address] [place] [address] Result Comment: <200 mg/dL, Desirable 200-239 mg/dL, Borderline high >239 mg/dL, High Performed By: #### L IPNF, 09723-7 #### [facility] CLIA [id number] [address] [place] [address] [place] HDL CHOLESTEROL, NF 69 mg/dL Normal >39 [facility] Comment on above: Order Comment: Philip birmingham Type: BLOOD SPECIMEN Ordering Facility: [facility] Address: [address] [place] [address] Result Comment: 40-5 9 mg/dL, Acceptable >59 mg/dL, High: Negative risk factor for coronary heart disease <40 mg/dL, Low: Positive risk factor for coronary heart disease Performed By: #### L IPNF, 63453-4 #### [facility] CLIA [id number] [address] [place] [address] [place] LDL CHOLESTEROL, NF 66 mg/dL Normal <100 [facility] Comment on above: Order Comment: Philip valencia Type: BLOOD SPECIMEN Ordering Facility: [facility] Address: [address] [place] [address] Result Comment: <100 mg/dL, Optimal 100-129 mg/dL, Near optimal/above optimal 130-159 mg/dL, Borderline high 160-189 mg/dL, High >189 mg/dL, Very high Secondary prevention optimal LDL Cholesterol levels are recommended to be < 70 mg/dL Performed By: #### L IPNF, 37139-6 #### [facility] CLIA [id number] [address] [place] [address] [place] LDL/HDL RATIO, NF 0.96 mg/dL Normal <2.54 [facility] Comment on above: Order Comment: Speci men Type: BLOOD SPECIMEN Ordering Facility: [facility] Address: [address] [place] [address] Result Comment: Eric kasper: 1. National Cholesterol Education Program ATP III Guideline At-A-Glance Quick Desk Reference: National Heart, Lung, and Blood [place]. National Institutes of Health. 2001: NIH Publication No. 01-3305. 2. An International Atherosclerosis Society position paper: global recommendations for the management of dyslipidemia: executive summary, Atherosclerosis. 2014: 232(2):410-413. Performed By: #### L IPNF, 69718-0 #### [facility] CLIA [id number] [address] [place] [address] OF [facility] NON HDL CHOL, NF 85 mg/dL Normal <130 [facility] Comment on above: Order Comment: Philip birmingham Type: BLOOD SPECIMEN Ordering Facility: [facility] Address: [address] [place] [address] Result Comment: <130 mg/dL, Optimal 130-159 mg/dL, Near optimal/above optimal 160-189 mg/dL, Borderline high 190-219 mg/dL, High >219 mg/dL, Very high Secondary prevention optimal non HDL Cholesterol levels are recommended to be <100 mg/dL Performed By: #### L IPNF, 39171-1 #### [facility] CLIA [id number] [address] [place] [address] [place] T CHOL/HDL RATIO NF 2.23 mg/dL Normal <5.10 [facility] Comment on above: Order Comment: Philip birmingham Type: BLOOD SPECIMEN Ordering Facility: [facility] Address: [address] [place] [address] Performed By: #### L IPNF, 13697-8 #### [facility] CLIA [id number] [address] [place] [address] [facility] [place] TRIGLYCERIDES, NF 96 mg/dL Normal <150 [facility] Comment on above: Order Comment: Philip birmingham Type: BLOOD SPECIMEN Ordering Facility: [facility] Address: [address] [place] [address] Result Comment: <150 mg/dL, Normal 150-199 mg/dL, Borderline high 200-499 mg/dL, High >499 mg/dL, Very high Performed By: #### L IPNF, 78277-4 #### [facility] CLIA [id number] [address] [place] [address] [place] VLDL CHOLESTEROL, NF 19 mg/dL Normal <30 [facility] Comment on above: Order Comment: Speci men Type: BLOOD SPECIMEN Ordering Facility: [facility] Address: [address] [place] [address] Performed By: #### L IPNF, 45698-1 #### [facility] CLIA [id number] [address] [place] [address] [place] PHOSPHATIDYLETHANOL (PETH)on 08-31-2023 EER PETH See Note Normal [facility] Comment on above: Order Comment: Speci men Type: BLOOD SPECIMEN Ordering Facility: [facility] Address: [address] [place] [address] Result Comment: Auth orized individuals can access the [employer] Git Enhanced Report using the following link: [email or web address] Performed By: #### P ETH #### [facility] CLIA [id number] [address] [place] [address] PETH 16:0/18.2 (PLPETH) 244 ng/mL Normal [facility] Comment on above: Order Comment: Speci men Type: BLOOD SPECIMEN Ordering Facility: [facility] Address: [address] [place] [address] Result Comment: Refe rence ranges are not well established. Performed By: #### P ETH #### [facility] CLIA [id number] [address] [place] [address] PETH 16:0/18:1 (POPETH) 169 ng/mL Normal [facility] Comment on above: Order Comment: Speci men Type: BLOOD SPECIMEN Ordering Facility: [facility] Address: [address] [place] [address] Result Comment: PEth 16:0/18:1 (POPEth) Less than 10 ng/mL............Not detected Less than 20 ng/mL............Abstinence or light alcohol consumption 20 - 200 ng/mL................Moderate alcohol consumption Greater than 200 ng/mL........Heavy alcohol consumption or chronic alcohol use (Reference: Sophie Gonzalez and Crystal Helm 2018 J. Forensic Sci) Performed By: #### P ETH #### [facility] CLIA [id number] [address] [place] [address] PETH INTERPRETATION See Note Normal [facility] Comment on above: Order Comment: Speci men Type: BLOOD SPECIMEN Ordering Facility: [facility] Address: [address] [place] [address] [place] [address] Result Comment: Phos phatidylethanol (PEth) is a [...] developed and its performance characteristics determined by [facility]. It has not been cleared or approved by the U.S. Food and Drug Administration. This test was performed in a CLIA-certified laboratory and is intended for clinical purposes. Performed By: [facility] [address] [place] [address] Accounts Receivable Clerk: Osmar Salcido MD, PhD CLIA Number: [id number] Performed By: #### P ETH #### [facility] CLIA [id number] [address] [place] [address] MRI ABDOMEN W WO CONTRAST MR CPon 12-07-2023 MRI ABDOMEN W WO CONTRAST MRCP EXAM: [...] Troy Bond MD 08/20/23 Final result Normal [facility] Vitamin Aon 08-16-2023 Interpretation Normal Normal [facility] Comment on above: Result Comment: (NOT E) This test was developed and its performance characteristics determined by [facility]. It has not been cleared or approved by the US Food and Drug Administration. This test was performed in a CLIA certified laboratory and is intended for clinical purposes. Performed By: [facility] [employer] [address] [place] [address] Accounts Receivable Clerk: Osmar Salcido MD, PhD CLIA Number: [id number] Performed By: #### P THNCA, FEBC, FERI, GLYHGB, VD25 #### [address] [address] Control Room Tender: Harpal Adair MD #### AGNES OLIVO, AZN #### [address] [address] Control Room Tender: Patricio Zuñiga MD #### MG ANGEL, CDP #### [address] [place] [address] Control Room Tender: Hilton Armenta MD Retinol (Vitamin A) 0.60 mg/L Normal 0.30-1.20 [facility] Comment on above: Performed By: #### Kina AVALOS, ALFONSO, FERI, GLYHGB, VD25 #### [address] [address] Control Room Tender: Harpal Adair MD #### AGNES OLIVO, AZN #### [address] [address] Control Room Tender: Patricio Zuñiga MD #### MG ANGEL, CDP #### [address] [place] [address] Control Room Tender: Hilton Armenta MD Retinyl Palmitate <0.02 Normal 0.00-0.10 [facility] Comment on above: Performed By: #### P DENNISA, FEBC, FERI, GLYHGB, VD25 #### [facility] [address] [place] [address] Control Room Tender: Harpal Adair MD #### TYREE OLIVO1, SENAN #### [facility] [address] [place] [address] Control Room Tender: Patricio Zuñiga MD #### CP, MG, CDP #### [facility] [address] [place] [address] Control Room Tender: Hilton Armenta MD Alanine aminotransferase [En zymatic activity/volume] in Serum or PlasmaOrdered By: Yoli Norris on 08-15-2023 ALT [Catalytic activity/Vol] 18 U/L 7-52 [facility] Albumin [Mass/volume] in Ser um or Plasma by Bromocresol green (BCG) dye binding methoOrdered By: Yoli Norris on 08-15-2023 Albumin BCG dye [Mass/Vol] 4.6 g/dL 3.5-5.7 [facility] Alkaline phosphatase [Enzyma tic activity/volume] in Serum or PlasmaOrdered By: Yoli Norris on 08-15-2023 ALP [Catalytic activity/Vol] 77 U/L 34-104 [facility] Aspartate aminotransferase [ Enzymatic activity/volume] in Serum or PlasmaOrdered By: Yoli Norris on 08-15-2023 AST [Catalytic activity/Vol] 18 U/L 13-39 [facility] Basophils Auto (Bld) [#/Vol] Ordered By: Yoli Norris on 08-15-2023 Basophils (Bld) [#/Vol] 0.1 10*3/uL 0.0-0.2 [facility] Basophils/100 WBC Auto (Bld) Ordered By: Yoli Norris on 08-15-2023 Basophils/100 WBC (Bld) 0.5 % . [facility] Bilirubin Test strip Ql (U)O rdered By: Yoli Norris on 08-15-2023 Bilirubin Ql (U) Negative Negative [facility] Bilirubin.direct [Mass/volum e] in Serum or PlasmaOrdered By: Yoli Norris on 08-15-2023 Bilirubin.direct [Mass/Vol] 0.00 mg/dL 0.03-0.18 [facility] Comment on above: If the DBIL is less than 0.1, IBIL is not able to becalculated. Bilirubin.total [Mass/volume ] in Serum or PlasmaOrdered By: Yoli Norris on 08-15-2023 Bilirubin [Mass/Vol] 0.3 mg/dL 0.3-1.0 [facility] Calcium [Mass/volume] in Ser um or PlasmaOrdered By: Yoli Norris on 08-15-2023 Calcium [Mass/Vol] 9.8 mg/dL 8.6-10.3 [facility] Carbon dioxide, total [Moles /volume] in Serum or PlasmaOrdered By: Yoli Norris on 08-15-2023 CO2 [Moles/Vol] 21.8 mmol/L 21.0-31.0 [facility] Chloride [Moles/volume] in S tushar or PlasmaOrdered By: Yoli Norris on 08-15-2023 Chloride [Moles/Vol] 109 mmol/L 98-107 [facility] Color Auto (U)Ordered By: Maribel Norris on 08-15-2023 Color (U) Yellow Yellow [facility] Creatinine [Mass/volume] in Serum or PlasmaOrdered By: Yoli Norris on 08-15-2023 Creatinine [Mass/Vol] 0.76 mg/dL 0.60-1.20 [facility] Eosinophils Auto (Bld) [#/Vo l]Ordered By: Yoli Norris on 08-15-2023 Eosinophils (Bld) [#/Vol] 0.2 10*3/uL 0.0-0.45 [facility] Eosinophils/100 WBC Auto (Bl d)Ordered By: Yoli Norris on 08-15-2023 Eosinophils/100 WBC (Bld) 2.1 % . [facility] Erythrocyte distribution wid th Auto (RBC) [Ratio]Ordered By: Yoli Norris on 08-15-2023 Erythrocyte distribution width (RBC) [Ratio] 15.1 % 11.9-15.3 [facility] Globulin Calc (S) [Mass/Vol] Ordered By: Yoli Norris on 08-15-2023 Globulin (S) [Mass/Vol] 3.2 g/dL [facility] Glucose [Mass/volume] in Ser um or PlasmaOrdered By: Yoli Norris on 08-15-2023 Glucose [Mass/Vol] 85 mg/dL 70-100 [facility] Comment on above: ADA recommended refe rence rangeRandom Glucose Reference Range is dependent on time and content of last meal. Glucose of more than 200 mg/dL in a nonstressed, ambulatory subject supports the diagnosis of Diabetes Mellitus. HCG ( test) IA.rapi d Ql (U)Ordered By: Yoli Norris on 08-15-2023 HCG ( test) Ql (U) Negative [facility] Hematocrit Auto (Bld) [Volum e fraction]Ordered By: Yoli Norris on 08-15-2023 Hematocrit (Bld) [Volume fraction] 37.2 % 34.0-46.4 [facility] Hemoglobin [Mass/volume] in BloodOrdered By: Yoli Norris on 08-15-2023 Hemoglobin (Bld) [Mass/Vol] 12.2 g/dL 11.8-15.4 [facility] Ketones Auto test strip (U) [Mass/Vol]Ordered By: Yoli Norris on 08-15-2023 Ketones (U) [Mass/Vol] Negative Negative [facility] Leukocytes [#/volume] correc caitlin for nucleated erythrocytes in Blood by Automated counOrdered By: Yoli Norris on 08-15-2023 WBC corrected for nucl RBC Auto (Bld) [#/Vol] 11.3 10*3/uL 3.8-11.6 [facility] Lipase [Enzymatic activity/v olume] in Serum or PlasmaOrdered By: Yoli Norris on 08-15-2023 Lipase [Catalytic activity/Vol] 32.0 U/L 11.0-82.0 [facility] Lymphocytes Auto (Bld) [#/Vo l]Ordered By: Yoli Norris on 08-15-2023 Lymphocytes (Bld) [#/Vol] 2.0 10*3/uL 1.00-4.8 [facility] Lymphocytes/100 WBC Auto (Bl d)Ordered By: Yoli Norris on 08-15-2023 Lymphocytes/100 WBC (Bld) 17.8 % . [facility] MCH Auto (RBC) [Entitic mass ]Ordered By: Yoli Norris on 08-15-2023 MCH (RBC) [Entitic mass] 30.2 pg 24.7-34.3 [facility] MCHC Auto (RBC) [Mass/Vol]Or dered By: Yoli Norris on 08-15-2023 MCHC (RBC) [Mass/Vol] 32.7 g/dL 32.0-35.0 [facility] MCV Auto (RBC) [Entitic vol] Ordered By: Yoli Norris on 08-15-2023 MCV (RBC) [Entitic vol] 92.4 fL 80-100 [facility] Monocyte distribution width [Entitic volume] in Blood by AutomatedOrdered By: Yoli Norris on 08-15-2023 Monocyte distribution width Auto (Bld) [Entitic vol] 15.46 % 0.00-20.00 [facility] Monocytes Auto (Bld) [#/Vol] Ordered By: Yoli Norris on 08-15-2023 Monocytes (Bld) [#/Vol] 0.6 10*3/uL 0.0-0.8 [facility] Monocytes/100 WBC Auto (Bld) Ordered By: Yoli Norris on 08-15-2023 Monocytes/100 WBC (Bld) 5.0 % . [facility] Neutrophils Auto (Bld) [#/Vo l]Ordered By: Yoli Norris on 08-15-2023 Neutrophils (Bld) [#/Vol] 8.4 10*3/uL 1.8-7.7 [facility] Neutrophils/100 WBC Auto (Bl d)Ordered By: Yoli Norris on 08-15-2023 Neutrophils/100 WBC (Bld) 74.6 % . [facility] Nitrite Test strip Ql (U)Ord ered By: Yoli Norris on 08-15-2023 Nitrite Ql (U) Negative Negative [facility] No Panel InformationOrdered By: Yoli Norris on 08-15-2023 Estimated GFR (CKD-EPI) > 60.0 mL/Min [facility] Creatinine Clearance (Chem 117.62 [facility] Nucleated erythrocytes [Pres ence] in Blood by Automated countOrdered By: Yoli Norris on 08-15-2023 Nucleated RBC Auto Ql (Bld) 0.0 /100{WBC} 0-0.5 [facility] Platelet mean volume Auto (B ld) [Entitic vol]Ordered By: Yoli Norris on 08-15-2023 Platelet mean volume (Bld) [Entitic vol] 9.2 fL 6.3-10.7 [facility] Platelets Auto (Bld) [#/Vol] Ordered By: Yoli Norris on 08-15-2023 Platelets (Bld) [#/Vol] 321 10*3/uL 150-450 [facility] Potassium [Moles/volume] in Serum or PlasmaOrdered By: Yoli Norris on 08-15-2023 Potassium [Moles/Vol] 3.5 mmol/L 3.5-5.1 [facility] Protein Auto test strip (U) [Mass/Vol]Ordered By: Yoli Norris on 08-15-2023 Protein (U) [Mass/Vol] Negative Negative [facility] Protein [Mass/volume] in Ser um or PlasmaOrdered By: Yoli Norris on 08-15-2023 Protein [Mass/Vol] 7.8 g/dL 6.4-8.9 [facility] RBC Auto (Bld) [#/Vol]Ordere d By: Yoli Norris on 08-15-2023 RBC (Bld) [#/Vol] 4.03 10*6/uL 3.60-5.00 [facility] Serum or plasma albumin/glob ulin mass ratioOrdered By: Yoli Norris on 08-15-2023 Albumin/Globulin [Mass ratio] 1.4 {ratio} [facility] Serum or plasma anion gap de terminationOrdered By: Yoli Norris on 08-15-2023 Anion gap [Moles/Vol] 12.7 mmol/L 6.0-15.0 [facility] Serum or plasma non-glucuron idated bilirubin measurement (mass/volume)Ordered By: Yoli Norris on 08-15-2023 Bilirubin.indirect [Mass/Vol] 0.3 mg/dL [facility] Sodium [Moles/volume] in Ser um or PlasmaOrdered By: Yoli Norris on 08-15-2023 Sodium [Moles/Vol] 140 mmol/L 136-145 [facility] Specific gravity Auto test s trip (U) [Rel density]Ordered By: Yoli Norris on 08-15-2023 Specific gravity (U) [Rel density] 1.007 1.001-1.030 [facility] Urea nitrogen [Mass/volume] in Serum or PlasmaOrdered By: Yoli Norris on 08-15-2023 Urea nitrogen [Mass/Vol] 11 mg/dL 7-25 [facility] Urine clarity by refractomet ry automatedOrdered By: Yoli Norris on 08-15-2023 Clarity Refractometry automated (U) Clear Clear [facility] Urine glucose measurement by automated test strip (mass/volume)Ordered By: Yoli Norris on 08-15-2023 Glucose Auto test strip (U) [Mass/Vol] Normal mg/dL Normal [facility] Urine hemoglobin detection b y automated test stripOrdered By: Yoli Norris on 08-15-2023 Hemoglobin Auto test strip Ql (U) Negative Negative [facility] Urine leukocyte esterase det ection by automated test stripOrdered By: Yoli Norris on 08-15-2023 Leukocyte esterase Auto test strip Ql (U) Negative Negative [facility] Urobilinogen Auto test strip (U) [Mass/Vol]Ordered By: Yoli Norris on 08-15-2023 Urobilinogen (U) [Mass/Vol] Normal mg/dL Normal [facility] Vitamin B1on 08-15-2023 Vitamin B1 145 nmol/L Normal 70-180 [facility] Comment on above: Result Comment: (NOT [...] developed and its performance characteristics determined by [facility]. It has not been cleared or approved by the [place] Food and Drug Administration. This test was performed in a CLIA certified laboratory and is intended for clinical purposes. Performed By: [facility] [address] [place] [address] Accounts Receivable Clerk: Osmar Salcido MD, PhD CLIA Number: [id number] Performed By: #### P THNCA, FEBC, FERI, GLYHGB, VD25 #### [place] [address] Control Room Tender: Harpal Adair MD #### PALLAVI, ARIANTB1, AZN #### [facility] [address] [place] [address] Control Room Tender: Patricio Zuñiga MD #### CP, MG, CDP #### [facility] [address] [place] [address] Control Room Tender: Hilton Armenta MD WBC Auto (Bld) [#/Vol]Ordere d By: Yoli Norris on 08-15-2023 WBC (Bld) [#/Vol] 11.3 10*3/uL 3.8-11.6 [facility] pH Auto test strip (U)Ordere d By: Yoli Norris on 08-15-2023 pH (U) 8.0 [pH] 5.0-9.0 [facility] Zinc, Serumon 08-14-2023 Zinc, Serum 95.3 ug/dL Normal 60.0-120.0 [facility] Comment on above: Result Comment: (NOT [...] developed and its performance characteristics determined by [facility]. It has not been cleared or approved by the US Food and Drug Administration. This test was performed in a CLIA certified laboratory and is intended for clinical purposes. Performed By: [facility] [address] [place] [address] Accounts Receivable Clerk: Osmar Salcido MD, PhD CLIA Number: [id number] Performed By: #### P THNCA, FEBC, FERI, GLYHGB, VD25 #### [facility] [address] [place] [address] Control Room Tender: Harpal Adair MD #### AGNES OLIVO, AZN #### [facility] [address], [place] [id number] Control Room Tender: Patricio Zuñiga MD #### CP, MG, CDP #### [facility] [address] [place] [address] Control Room Tender: Hilton Armenta MD B12/Folate Panelon Folic Acid >20.0 Normal >4.8 [facility] Comment on above: Performed By: #### Kina AVALOS, ALFONSO, FERI, GLYHGB, VD25 #### [facility] [address] [place] [address] Control Room Tender: Harpal Adair MD #### AGNES OLIVO, AZN #### [facility] [address] [place] [address] Control Room Tender: Patricio Zuñiga MD #### CP, MG, CDP #### [address] [place] [address] Control Room Tender: Hilton Armenta MD Cobalamin (Vitamin B12) [Mass/Vol] 632 pg/mL Normal 232-1245 [facility] Comment on above: Performed By: #### P BAILEY, ALFONSO, FERI, GLYHGB, VD25 #### [facility] [place] [address] Control Room Tender: Harpal Adair MD #### AGNES OLIVO, AZN #### [facility] [address] [place] [address] Control Room Tender: Patricio Zuñiga MD #### CP, MG, CDP #### [address] [place] [address] Control Room Tender: Hilton Armenta MD CBC with Diffon 08-12-2023 Abs. Basophil 0.06 k/uL Normal 0.00-0.20 [facility] Comment on above: Performed By: #### ALFONSO COSTA, FERI, GLYHGB, VD25 #### [address] [address] Control Room Tender: Harpal Adair MD #### AGNES OLIVO, AZN #### [facility] [address] [place] [address] Control Room Tender: Patricio Zuñiga MD #### ANGEL MG, CDP #### [facility] [address] [place] [address] Control Room Tender: Hilton Armenta MD Abs.Imm.Granulocyte 0.03 k/uL Normal 0.00-0.30 [facility] Comment on above: Performed By: #### ALFONSO COSTA, ARNOLDO, GLYJUANB, VD25 #### [address] [address] Control Room Tender: Harpal Adair MD #### AGNES OLIVO, AZN #### [facility] [address] [place] [address] Control Room Tender: Patricio Zuñiga MD #### MG ANGEL, CDP #### [facility] [address] [place] [address] Control Room Tender: Hilton Armenta MD Abs.Neutrophil (Seg) 6.33 k/uL Normal 1.50-8.10 [facility] Comment on above: Performed By: #### ALFONSO COSTA, FERI, GLYHGB, VD25 #### [address] [address] Control Room Tender: Harpal Adair MD #### AGNES OLIVO, AZN #### [facility] [address] [place] [address] Control Room Tender: Patricio Zuñiga MD #### CP, MG, CDP #### [facility] [address] [place] [address] [place] [address] Control Room Tender: Hilton Armenta MD Basophils/100 WBC (Bld) 1 % Normal 0-2 [facility] Comment on above: Performed By: #### P THNCA, FEBC, FERI, GLYHGB, VD25 #### [facility] [address] [place] [address] Control Room Tender: Harpal Adair MD #### AGNES OLIVO, AZN #### [facility] [address] [place] [address] Control Room Tender: Patricio Zuñiga MD #### ANGEL, MG, CDP #### [facility] [address] [place] [address] [place] [place] [phone] Control Room Tender: Hilton Armenta MD Eosinophils (Bld) [#/Vol] 0.43 10*3/uL Normal 0.00-0.44 [facility] Comment on above: Performed By: #### P THNCA, FEBC, FERI, GLYHGB, VD25 #### [address] [id number] Control Room Tender: Harpal Adair MD #### AGNES OLIVO, AZN #### [facility] [address] [place] [address] Control Room Tender: Patricio Zuñiga MD #### CP, MG, CDP #### [facility] [address] [place] [address] [place] [address] Control Room Tender: Hilton Armenta MD Eosinophils/100 WBC (Bld) 5 % High 1-4 [facility] Comment on above: Performed By: #### P THNCA, FEBC, FERI, GLYHGB, VD25 #### [facility] [address] [place] [address] Control Room Tender: Harpal Adair MD #### AGNES OLIVO, AZN #### [facility] [address] [place], [place] [id number] Control Room Tender: Patricio Zuñiga MD #### CP, MG, CDP #### [address] [place] [address] Control Room Tender: Hilton Armenta MD Erythrocyte distribution width (RBC) [Ratio] 14.9 % High 11.8-14.4 [facility] Comment on above: Performed By: #### P BAILEY, ALFONSO, FERI, GLYHGB, VD25 #### [address] [address] Control Room Tender: Harpal Adair MD #### AGNES OLIVO, AZN #### [address] [address] Control Room Tender: Patricio Zuñiga MD #### ANGEL, MG, CDP #### [address] [place] [address] Control Room Tender: Hilton Armenta MD Hematocrit (Bld) [Volume fraction] 38.0 % Normal 36.3-47.1 [facility] Comment on above: Performed By: #### P BAILEY, ALFONSO, FERI, GLYHGB, VD25 #### [address] [address] Control Room Tender: Harpal Adair MD #### AGNES OLIVO, AZN #### [facility] [address] [place] [address] Control Room Tender: Patricio Zuñiga MD #### CP, MG, CDP #### [address] [place] [address] Control Room Tender: Hilton Armenta MD Hemoglobin (Bld) [Mass/Vol] 12.2 g/dL Normal 11.9-15.1 [facility] Comment on above: Performed By: #### P THNCA, FEBC, FERI, GLYHGB, VD25 #### [address] [address] Control Room Tender: Harpal Adair MD #### ARIAN OLIVOTBCeli, AZN #### [facility] [address] [place] [address] Control Room Tender: Patricio Zuñiga MD #### CP, MG, CDP #### [address] [place] [address] Control Room Tender: Hilton Armenta MD Immature granulocytes/100 WBC (Bld) 0 % Normal 0 [facility] Comment on above: Performed By: #### P DENNISA, FEBC, FERI, GLYHGB, VD25 #### [address] [address] Control Room Tender: Harpal Adair MD #### AGNES OLIVO, AZN #### [facility] [address] [place] [address] Control Room Tender: Patricio Zuñiga MD #### ANGEL, MG, CDP #### [address] [place] [phone] Control Room Tender: Hilton Armenta MD Lymphocytes (Bld) [#/Vol] 1.90 10*3/uL Normal 1.10-3.70 [facility] Comment on above: Performed By: #### P THNCA, FEBC, FERI, GLYHGB, VD25 #### [address] [address] Control Room Tender: Harpal Adair MD #### ARIAN OLIVOTB1, AZN #### [facility] [address] [place], [place] [id number] Control Room Tender: Patricio Zuñiga MD #### CP, MG, CDP #### [facility] [address] [place] [phone] Control Room Tender: Hilton Armenta MD Lymphocytes/100 WBC (Bld) 20 % Low 24-43 [facility] Comment on above: Performed By: #### P THNCA, FEBC, FERI, GLYHGB, VD25 #### [address] [address] Control Room Tender: Harpal Adair MD #### ARIAN OLIVOTBCeli, AZN #### [facility] [address] [place] [address] Control Room Tender: Patricio Zuñiga MD #### ANGEL, MG, CDP #### [facility] [address] [place] [phone] Control Room Tender: Hilton Armenta MD MCH (RBC) [Entitic mass] 29.9 pg Normal 25.2-33.5 [facility] Comment on above: Performed By: #### P DENNISA, FEBC, FERI, GLYHGB, VD25 #### [address] [address] Control Room Tender: Harpal Adair MD #### AGNES OLIVO, AZN #### [facility] [address] [place] [address] Control Room Tender: Patricio Zuñiga MD #### CP, MG, CDP #### [facility] [address] [place] [phone] Control Room Tender: Hilton Armenta MD MCHC (RBC) [Mass/Vol] 32.1 g/dL Normal 28.4-34.8 [facility] Comment on above: Performed By: #### P THNCA, FEBC, FERI, GLYHGB, VD25 #### [address] [address] Control Room Tender: Harpal Adair MD #### AGNES OLIVO, AZN #### [facility] [address] [place], [place] [id number] Control Room Tender: Patricio Zuñiga MD #### CP, MG, CDP #### [address] [place] [phone] Control Room Tender: Hilton Armenta MD MCV (RBC) [Entitic vol] 93.1 fL Normal 82.6-102.9 [facility] Comment on above: Performed By: #### ALFONSO COSTA, FERI, GLYHGB, VD25 #### [address] [address] Control Room Tender: Harpal Adair MD #### AGNES OLIVO, AZN #### [address] [id number] Control Room Tender: Patricio Zuñiga MD #### ANGEL, MG, CDP #### [address] [place] [phone] Control Room Tender: Hilton Armenta MD Monocytes (Bld) [#/Vol] 0.70 10*3/uL Normal 0.10-1.20 [facility] Comment on above: Performed By: #### P DENNISA, FEBC, FERI, GLYHGB, VD25 #### [address] [address] Control Room Tender: Harpal Adair MD #### TYREE OLIVO1, AZN #### [facility] [address] [place] [address] Control Room Tender: Patricio Zuñiga MD #### CP, MG, CDP #### [address] [place] [phone] Control Room Tender: Hilton Armenta MD Monocytes/100 WBC (Bld) 7 % Normal 3-12 [facility] Comment on above: Performed By: #### P THNCA, FEBC, FERI, GLYHGB, VD25 #### [facility] [address] [place] [address] Control Room Tender: Harpal Adair MD #### AVITAS, AVITB1, AZN #### [facility] [address] [place] [address] Control Room Tender: Patricio Zuñiga MD #### CP, MG, CDP #### [facility] [address] [place] [address] Control Room Tender: Hilton Armenta MD Neutrophil (Seg) 67 % High 36-65 [facility] Comment on above: Performed By: #### P THNCA, FEBC, FERI, GLYHGB, VD25 #### [address] [address] Control Room Tender: Harpal Adair MD #### ARIAN OLIVOTB1, AZN #### [facility] [address] [place], [place] [id number] Control Room Tender: Patricio Zuñiga MD #### CP, MG, CDP #### [facility] [address] [place] [address] Control Room Tender: Hilton Armenta MD NRBC Automated 0.0 per 100 WBC Normal 0.0 [facility] Comment on above: Performed By: #### P THNCA, FEBC, FERI, GLYHGB, VD25 #### [address] [address] Control Room Tender: Harpal Adair MD #### AVITAS, AVITB1, AZN #### [facility] [address] [place] [address] Control Room Tender: Patricio Zuñiga MD #### CP, MG, CDP #### [address] [place], [place] [address] Control Room Tender: Hilton Armenta MD Platelet mean volume (Bld) [Entitic vol] 10.6 fL Normal 8.1-13.5 [facility] Comment on above: Performed By: #### P THNCA, FEBC, FERI, GLYHGB, VD25 #### [address] [address] Control Room Tender: Harpal Adair MD #### ARIAN OLIVOTB1, AZN #### [facility] [address] [place], [place] [id number] Control Room Tender: Patricio Zuñiga MD #### CP, MG, CDP #### [address] [place] [phone] Control Room Tender: Hilton Armenta MD Platelets (Bld) [#/Vol] 355 10*3/uL Normal 138-453 [facility] Comment on above: Performed By: #### P THNCA, FEBC, FERI, GLYHGB, VD25 #### [address] [address] Control Room Tender: Harpal Adair MD #### ARIAN OLIVOTB1, AZN #### [facility] [address] [place], [place] [id number] Control Room Tender: Patricio Zuñiga MD #### CP, MG, CDP #### [address] [place], [place] [address] Control Room Tender: Hilton Armenta MD RBC (Bld) [#/Vol] 4.08 10*6/uL Normal 3.95-5.11 [facility] Comment on above: Performed By: #### P THNCA, FEBC, FERI, GLYHGB, VD25 #### [address] [address] Control Room Tender: Harpal Adair MD #### ARIAN OLIVOTB1, AZN #### [facility] [address] [place], [place] [id number] Control Room Tender: Patricio Zuñiga MD #### CP, MG, CDP #### [facility] [address] [place] [address] [place] [address] Control Room Tender: Hilton Armenta MD WBC (Bld) [#/Vol] 9.5 10*3/uL Normal 3.5-11.3 [facility] Comment on above: Performed By: #### P DENNISA, FEBC, FERI, GLYHGB, VD25 #### [place] [address] [place], [place] [address] Control Room Tender: Harpal Adair MD #### AGNES OLIVO, AZN #### [facility] [address] [place], [place] [id number] Control Room Tender: Patricio Zuñiga MD #### CP, MG, CDP #### [address] [place] [address] Control Room Tender: Hilton Armenta MD Comp Metabolic Profon 2022 Albumin [Mass/Vol] 4.5 g/dL Normal 3.5-5.2 [facility] Comment on above: Performed By: #### P THNCA, FEBC, FERI, GLYHGB, VD25 #### [facility] [address] [place], [place] [phone] Control Room Tender: Harpal Adair MD #### TYREE OLIVO1, AZN #### [facility] [address] [place], [place] [id number] Control Room Tender: Patricio Zuñiga MD #### CP, MG, CDP #### [facility] [address] [place] [address] Control Room Tender: Hilton Armenta MD Albumin/Glob Ratio 1.6 Normal 1.0-2.5 [facility] Comment on above: Performed By: #### P THNCA, FEBC, FERI, GLYHGB, VD25 #### [address] [address] Control Room Tender: Harpal Adair MD #### ARIAN OLIVOTB1, AZN #### [facility] [address] [place], [place] [id number] Control Room Tender: Patricio Zuñiga MD #### CP, MG, CDP #### [facility] [address] [place] [address] Control Room Tender: Hilton Armenta MD Alkaline Phos 85 U/L Normal 35-104 [facility] Comment on above: Performed By: #### P THNCA, FEBC, FERI, GLYHGB, VD25 #### [address] [address] Control Room Tender: Harpal Adair MD #### ARIAN OLIVOTBCeli, AZN #### [facility] [address] [place], [place] [id number] Control Room Tender: Patricio Zuñiga MD #### ANGEL, MG, CDP #### [facility] [address] [place] [address] Control Room Tender: Hilton Armenta MD ALT [Catalytic activity/Vol] 21 U/L Normal 5-33 [facility] Comment on above: Performed By: #### P THNCA, FEBC, FERI, GLYHGB, VD25 #### [address] [address] Control Room Tender: Harpal Adair MD #### ARIAN OLIVOTB1, AZN #### [facility] [address] [place], [place] [id number] Control Room Tender: Patricio Zuñiga MD #### CP, MG, CDP #### [facility] [address] [place], [place] [phone] Control Room Tender: Hilton Armenta MD Anion gap [Moles/Vol] 11 mmol/L Normal 9-17 [facility] Comment on above: Performed By: #### P THNCA, FEBC, FERI, GLYHGB, VD25 #### [address] [address] Control Room Tender: Harpal Adair MD #### AGNES OLIVO, AZN #### [facility] [address] [place], [place] [id number] Control Room Tender: Patricio Zuñiga MD #### ANGEL, , CDP #### [address] [place], [place] 4228[address] Control Room Tender: Hilton Armenta MD AST [Catalytic activity/Vol] 22 U/L Normal <32 [facility] Comment on above: Performed By: #### P THNCA, FEBC, FERI, GLYHGB, VD25 #### [address] [address] Control Room Tender: Harpal Adair MD #### AGNES OLIVO, AZN #### [facility] [address] [place] [address] Control Room Tender: Patricio Zuñiga MD #### ANGEL, MG, CDP #### [address] [place], [place] 4303883 Control Room Tender: Hilton Armenta MD Bilirubin [Mass/Vol] 0.2 mg/dL Low 0.3-1.2 [facility] Comment on above: Performed By: #### P THNCA, FEBC, FERI, GLYHGB, VD25 #### [address] [address] Control Room Tender: Harpal Adair MD #### AGNES OLIVO, AZN #### [facility] [address] [place], [place] [id number] Control Room Tender: Patricio Zuñiga MD #### ANGEL MG, CDP #### [address] [place] [address] Control Room Tender: Hilton Armenta MD BUN/CRE Ratio 20 Normal 9-20 [facility] Comment on above: Performed By: #### P THNCA, FEBC, FERI, GLYHGB, VD25 #### [address] [id number] Control Room Tender: Harpal Adair MD #### AGNES OLIVO, AZN #### [facility] [address] [place], [place] [id number] Control Room Tender: Patricio Zuñiga MD #### MG ANGEL, CDP #### [address] [place] [address] Control Room Tender: Hilton Armenta MD Calcium [Mass/Vol] 9.9 mg/dL Normal 8.6-10.4 [facility] Comment on above: Performed By: #### P THNCA, FEBC, FERI, GLYHGB, VD25 #### [address] [id number] Control Room Tender: Harpal Adair MD #### AGNES OLIVO, AZN #### [facility] [address] [place], [place] [id number] Control Room Tender: Patricio Zuñiga MD #### ANGEL MG, CDP #### [address] [place] [address] Control Room Tender: Hilton Armenta MD Chloride [Moles/Vol] 107 mmol/L Normal 98-107 [facility] Comment on above: Performed By: #### P THNCA, FEBC, FERI, GLYHGB, VD25 #### [facility] [place] [address] Control Room Tender: Harpal Adair MD #### AGNES OLIVO, AZN #### [facility] [address] [place] [address] Control Room Tender: Patricio Zuñiga MD #### MG ANGEL, CDP #### [address] [place], [place] [phone] Control Room Tender: Hilton Armenta MD CO2 [Moles/Vol] 23 mmol/L Normal 20-31 [facility] Comment on above: Performed By: #### ALFONSO COSTA, FERI, GLYHGB, VD25 #### [address] [address] Control Room Tender: Harpal Adair MD #### AGNES OLIVO, AZN #### [facility] [address] [place] [id number] Control Room Tender: Patricio Zuñiga MD #### MG ANGEL, CDP #### [address] [place] [address] Control Room Tender: Hilton Armenta MD Creatinine [Mass/Vol] 0.6 mg/dL Normal 0.5-0.9 [facility] Comment on above: Performed By: #### ALFONSO COSTA, FERI, GLYHGB, VD25 #### [address] [address] Control Room Tender: Harpal Adair MD #### AGNES OLIVO, AZN #### [facility] [address] [place], [place] [id number] Control Room Tender: Patricio Zuñiga MD #### ANGEL, MG, CDP #### [address] [place] [address] Control Room Tender: Hilton Armenta MD GFR/1.73 sq M.predicted among non-blacks MDRD (S/P/Bld) [Vol rate/Area] mL/min/{1.73_m2} Normal >60 [facility] Comment on above: Result Comment: These [...] renal tubular secretion. Performed By: #### ALFONSO COSTA FERI, GLYHGB, VD25 #### [address] [phone] Control Room Tender: Harpal Adair MD #### AGNES OLIVO, AZN #### [facility] [address] [place], [place] [id number] Control Room Tender: Patricio Zuñiga MD #### ANGEL, MG, CDP #### [address] [place] [address] Control Room Tender: Hilton Armenta MD Glucose [Mass/Vol] 89 mg/dL Normal 70-99 [facility] Comment on above: Performed By: #### ALFONSO COSTA FERI, GLYHGB, VD25 #### [address] [id number] Control Room Tender: Harpal Adair MD #### AGNES OLIVO, AZN #### [facility] [address] [place], [place] [id number] Control Room Tender: Patricio Zuñiga MD #### CP, MG, CDP #### [facility] [address] [place] [address] Control Room Tender: Hilton Armenta MD Potassium [Moles/Vol] 4.3 mmol/L Normal 3.7-5.3 [facility] Comment on above: Performed By: #### P THNCA, FEBC, FERI, GLYHGB, VD25 #### [address] [address] Control Room Tender: Harpal Adair MD #### ARIAN OLIVOTB1, AZN #### [facility] [address] [place], [place] [id number] Control Room Tender: Patricio Zuñiga MD #### CP, MG, CDP #### [facility] [address] [place] [address] Control Room Tender: Hilton Armenta MD Protein [Mass/Vol] 7.4 g/dL Normal 6.4-8.3 [facility] Comment on above: Performed By: #### P THHAYDEEA, FEBC, FERI, GLYHGB, VD25 #### [address] [address] Control Room Tender: Harpal Adair MD #### ARIAN OLIVOTBCeli, AZN #### [facility] [address] [place] [address] Control Room Tender: Patricio Zuñiga MD #### ANGEL, MG, CDP #### [address] [place] [address] Control Room Tender: Hilton Armenta MD Sodium [Moles/Vol] 141 mmol/L Normal 135-144 [facility] Comment on above: Performed By: #### P THNCA, FEBC, FERI, GLYHGB, VD25 #### [address] [address] Control Room Tender: Harpal Adair MD #### ARIAN OLIVOTB1, AZN #### [facility] [address], [place] [id number] Control Room Tender: Patricio Zuñiga MD #### CP, MG, CDP #### [facility] [address] [place], [place] [address] Control Room Tender: Hilton Armenta MD Urea nitrogen [Mass/Vol] 12 mg/dL Normal 6-20 [facility] Comment on above: Performed By: #### P THNCA, FEBC, FERI, GLYHGB, VD25 #### [address] [id number] Control Room Tender: Harpal Adair MD #### ARIAN OLIVOTBCeli, AZN #### [facility] [address] [place] [address] Control Room Tender: Patricio Zuñiga MD #### ANGEL, MG, CDP #### [address] [place], [place] [address] Control Room Tender: Hilton Armenta MD Ferritinon 08-12-2023 Ferritin [Mass/Vol] 12 ng/mL Low 13-150 [facility] Comment on above: Performed By: #### P THNCA, FEBC, FERI, GLYHGB, VD25 #### [address] [address] Control Room Tender: Harpal Adair MD #### AGNES OLIVO, AZN #### [facility] [address] [place] [address] Control Room Tender: Patricio Zuñiga MD #### CP, MG, CDP #### [facility] [address] [place] [address] [address] [place], [place] [id number] Control Room Tender: Hilton Armenta MD Hemoglobin A1Con 08-12-2023 Glucose [Mass/Vol] 114 mg/dL Normal [facility] Comment on above: Result Comment: The ADA and AACC recommend providing the estimated average glucose result to permit better patient understanding of their HBA1c result. Performed By: #### P THNCA, FEBC, FERI, GLYHGB, VD25 #### [address] [address] Control Room Tender: Harpal Adair MD #### AGNES OLIVO, AZN #### [facility] [address], [place] [id number] Control Room Tender: Patricio Zuñiga MD #### ANGEL, MG, CDP #### [facility] [address] [place] [address] [place] [address] Control Room Tender: Hilton Armenta MD HbA1c (Bld) [Mass fraction] 5.6 % Normal 4.0-6.0 [facility] Comment on above: Performed By: #### P DENNISA, FEBC, FERI, GLYHGB, VD25 #### [address] [address] Control Room Tender: Harpal Adair MD #### AGNES OLIVO, AZN #### [facility] [address] [place] [address] Control Room Tender: Patricio Zuñiga MD #### ANGEL, MG, CDP #### [address] [place] [address] Control Room Tender: Hilton Armenta MD Iron Binding Cap.on 08-12-20 23 % Fe Saturation 16 % Low 20-55 [facility] Comment on above: Performed By: #### P THNCA, FEBC, FERI, GLYHGB, VD25 #### [address] [address] Control Room Tender: Harpal Adair MD #### AGNES OLIVO, AZN #### [facility] [address] [place] [address] Control Room Tender: Patricio Zuñiga MD #### ANGEL, MG, CDP #### [address] [place] [address] Control Room Tender: Hilton Armenta MD Iron [Mass/Vol] 57 ug/dL Normal 37-145 [facility] Comment on above: Performed By: #### P THNCA, FEBC, FERI, GLYHGB, VD25 #### [address] [address] Control Room Tender: Harpal Adair MD #### ARIAN OLIVOTB1, AZN #### [facility] [address] [place] [address] Control Room Tender: Patricio Zuñiga MD #### CP, MG, CDP #### [facility] [address] [address] Control Room Tender: Hilton Armenta MD Total Fe Binding Cap 354 ug/dL Normal 250-450 [facility] Comment on above: Performed By: #### P THNCA, FEBC, FERI, GLYHGB, VD25 #### [address] [address] Control Room Tender: Harpal Adair MD #### ARIAN OLIVOTB1, AZN #### [facility] [address], [place] [id number] Control Room Tender: Patricio Zuñiga MD #### ANGEL, MG, CDP #### [facility] [address] [place] [address] Control Room Tender: Hilton Armenta MD Unbound Fe Bind Cap 297 ug/dL Normal 112-347 [facility] Comment on above: Performed By: #### P THNCA, FEBC, FERI, GLYHGB, VD25 #### [address] [address] Control Room Tender: Harpal Adair MD #### FARHADS AVITB1, AZN #### [facility] [address] [place] [address] Control Room Tender: Patricio Zuñiga MD #### CP, MG, CDP #### [facility] [address] [address] Control Room Tender: Hilton Armenta MD Lipid Profileon 08-12-2023 Cholesterol [Mass/Vol] 153 mg/dL Normal <200 [facility] Comment on above: Result Comment: Cholesterol Guidelines: <200 Desirable 200-240 Borderline >240 Undesirable Performed By: #### L IPR #### [address] [address] Control Room Tender: Harpal Adair MD Cholesterol in HDL [Mass/Vol] 68 mg/dL Normal >40 [facility] Comment on above: Result Comment: HDL Guidelines: <40 Undesirable 40-59 Borderline >59 Desirable Performed By: #### L IPR #### [address] [address] Control Room Tender: Harpal Adair MD Cholesterol in LDL [Mass/Vol] 77 mg/dL Normal 0-130 [facility] Comment on above: Result Comment: LDL Guidelines: <100 Desirable 100-129 Near to/above Desirable 130-159 Borderline >159 Undesirable Direct (measured) LDL and calculated LDL are not interchangeable tests. Performed By: #### L IPR #### [address] [address] Control Room Tender: Harpal Adair MD Cholesterol.total/Chol esterol in HDL [Mass ratio] 2.3 {ratio} Normal <5 [facility] Comment on above: Performed By: #### L IPR #### [address] [address] Control Room Tender: Harpal Adair MD Triglyceride [Mass/Vol] 39 mg/dL Normal <150 [facility] Comment on above: Result Comment: Triglyceride Guidelines: <150 Desirable 150-199 Borderline 200-499 High >499 Very high Based on AHA Guidelines for fasting triglyceride, June 2012. Performed By: #### L IPR #### [address] [address] Control Room Tender: Harpal Adair MD Magnesiumon 08-12-2023 Magnesium [Mass/Vol] 2.1 mg/dL Normal 1.6-2.6 [facility] Comment on above: Performed By: #### ALFONSO COSTA, ARNOLDO, GLYHGB, VD25 #### [facility] [address] [place] [address] Control Room Tender: Harpal Adair MD #### AGNES OLIVO, AZN #### [facility] [address] [place] [address] Control Room Tender: Patricio Zuñiga MD #### ANGEL, MG, CDP #### [address] [place] [address] Control Room Tender: Hilton Armenta MD PTH, Intacton 08-12-2023 PTH, Intact 17.1 pg/mL Normal 14.0-72.0 [facility] Comment on above: Result Comment: SAMP LES FROM PATIENTS ROUTINELY RECEIVING HIGH DOSE BIOTIN THERAPY MAY SHOW FALSELY DEPRESSED RESULTS. ADDITIONAL INFORMATION MAY BE REQUIRED FOR DIAGNOSIS. Performed By: #### ALFONSO COSTA FERI, ARNOLDO, VD25 #### [address] [id number] Control Room Tender: Harpal Adair MD #### AGNES OLIVO, AZN #### [facility] [address] [place], [place] [id number] Control Room Tender: Patricio Zuñiga MD #### ANGEL, MG, CDP #### [facility] [address] [place] [address] [place] [address] Control Room Tender: Hilton Armenta MD Thyroid Stim. Horm.on 2022 Thyroid Stim. Horm. 1.50 uIU/mL Normal 0.30-5.00 [facility] Comment on above: Performed By: #### ALFONSO COSTA, ASHLYI, GLYHGB, VD25 #### [address] [place], [place] 6278308 Control Room Tender: Harpal Adair MD #### AGNES OLIVO, AZN #### [facility] [address] [place] [address] Control Room Tender: Patricio Zuñiga MD #### CP, MG, CDP #### [facility] [address] [place] [address] [place] [address] Control Room Tender: Hilton Armenta MD Thyroxine, Freeon 08-12-2023 Thyroxine, Free 1.2 ng/dL Normal 0.9-1.7 [facility] Comment on above: Performed By: #### P THNCA, FEBC, FERI, GLYHGB, VD25 #### [facility] [address] [place], [place] [address] Control Room Tender: Harpal Adair MD #### AGNES OLIVO, AZN #### [facility] [address] [place] [address] Control Room Tender: Patricio Zuñgia MD #### ANGEL, MG, CDP #### [address] [place] [address] Control Room Tender: Hilton Armenta MD US GALLBLADDER RUQon 023 US GALLBLADDER RUQ EXAMINATION: RIGHT UPPER QUADRANT ULTRASOUND 08/12/2023 7:25 am COMPARISON: None. HISTORY: ORDERING SYSTEM PROVIDED HISTORY: LUQ pain TECHNOLOGIST PROVIDED HISTORY: This procedure can be scheduled via [employer]. Access your [employer] account by visiting [employer]. FINDINGS: LIVER: The liver demonstrates normal echogenicity [...] Bret Monson DO 08/12/23 Final result Normal [facility] Vitamin D 25 OHon 08-12-2023 Vitamin D 25 OH 45.1 ng/mL Normal >29.9 [facility] Comment on above: Result Comment: Reference Range: Vitamin D status Range Deficiency <20 ng/mL Mild Deficiency 20-30 ng/mL Sufficiency 30-100 ng/mL Toxicity >100 ng/mL Performed By: #### P THNCA, FEBC, FERI, GLYHGB, VD25 #### [facility] [address] [place], [place] 7849[address] Control Room Tender: Harpal Adair MD #### TYREE OLIVO1, AZN #### [facility] [address] [place] [address] Control Room Tender: Patricio Zuñiga MD #### CP, MG, CDP #### [facility] [address] [address] Control Room Tender: Hilton Armenta MD Patient Correspondenceon Patient Correspondence [id number]#1.00T IFF Normal [facility] ED Note-Physicianon 07-14-20 ED Note-Physician Basic Information Time Seen: Shama Macdonadl PA-C 06/09/2023 15:45 Chief Complaint Pt presents to ED with complaints of MALDONADO onset today. History of Present Illness This patient presents to the emergency department chief complaint of maryam. She states that she has spent $10,000 in the last 2 weeks. She did see her psychiatrist at [facility] today and they are starting her [...] of care. (more content not included)... Normal [facility] Comment on above: Result Comment: Elec tronically Signed By: Shama Macdonald PA-C\.br\Date and Time Signed: 07/14/23 19:57 EDT\.br\Electronically Co-Signed By: Alexis Shukla DO\.br\Date and Time Co-Signed: 07/20/23 07:11 EST COVID Quick Testingon 2022 Result Negative [employer] Other Consultation Noteon 07-08-20 Consultation Note [id number]#1.00T IFF Normal [facility] Consent for Treatmenton 06-14 Consent for Treatment [id number]#1.00T IFF Normal [facility] ED Clinical Summaryon 2022 ED Clinical Summary (Inserted Image. Jordana ble to display) [address] [address] ED Clinical Summary Person Information Name: SHAZIA CHOU [facility] Age: 32 Years : 1990 Sex: Female Language: Romanian PCP: Jennie Durand DO Marital Status: Phone: [phone] MRN: Visit Id: Visit Reason: Headache; Neck [...] 07/02/2023 15:29:14 07/02/2023 15:29:14 07/02/2023 15:29:14 ADDRESS: [address] [place] [id number] [facility] DOC [...] day. Refills: 1. pantoprazole (Pantoprazole 40 mg Tab) 1 Tablets By Mouth every day. trazodone 100 Milligram By Mouth once a day (at bedtime). PATIENT EDUCATION INFORMATION: Instructions: Follow up: DIAGNOSIS: Normal [facility] ED Patient Education Noteon 07-02-2023 ED Patient Education Note Normal [facility] ED Patient Summaryon 023 ED Patient Summary (Inserted Image. Jordana ble to display) [address] [address] Patient Discharge Instructions Person Information Name: SHAZIA CHOU Age: 32 Years Arrival Date: 07/02/2023 14:03:05 Discharge Diagnosis: Primary Care Physician: Jennie Durand DO Provider Information Primary Provider: Bakari Chester DO Advanced Pecan Cleaner:Merari Polanco PA-C The exam and treatment you received in the Emergency Department were for an urgent problem and are not intended as complete care. It is important that you follow up with a doctor, nurse practitioner, or physician?s early childhood teacher assistant for ongoing care. If your symptoms [...] opioids can be used to help relieve xzpohcjy-sy-oxytis pain and are often prescribed following a [...] be struggling with addiction, tell your health home health care physician and ask for guidance or call [facility]?S National Helpline at 9-964-002-HELP. v Source: [place] Department of Health and Human Services/Center for Disease Control & Prevention [facility] Medications Given: Medication Dose Route No medication (more content not included)... [facility] Consultation Noteon 06-22-20 Consultation Note [id number]#1.00TI FF [facility] Consultation Noteon 06-19-20 Consultation Note [id number]#1.00T IFF [facility] Ernesto 06-15-2023 CNPN Telephone (NEKYLEFV) SHAZIA CHOU ([id number]) 1990 F Date Time Provider Department 06/15/23 EILEEN ALVAREZ During your visit today, we recorded the following information about you: Clara Durbin, AQUILINO 06/15/2023 4:57 PM Signed Received clinical notes and test results from [facility] ED visit from 06/10/23. 13 pages. Scanned to chart via [employer]. Routed to provider for review Glen Singh [...] is not alleviating the problem. Patient # [id number] Gorge Betancur 07/03/2023 12:15 PM Signed Per instructions from Dr. Alvarez. LM for patient, also sent message via [employer]. She needs to be back on diamox [...] 40 mg by mouth once daily. - xuzsjtucznts-bcs-xmch-F A-vit K (BARIATRIC MULTIVITAMINS) 45 mg iron- [...] Status:Closed by GORGE BETANCUR on 07/03/23 Normal [facility] Discharge Instructionson Discharge Instructions [id number]#1.00 CD:127 Normal [facility] Acetamnphn Lvlon 06-09-2023 Acetaminophen [Mass/Vol] ug/mL Low 15-30 [facility] Comment on above: Performed By: #### 2 362788, 4160486, 7868273, 4250208, 2060515, 73128524 ####[facility] [address] [place] [address] Auto Diffon 06-09-2023 Basophils/100 WBC (Bld) 0.6 % Normal 0.0-2.0 [facility] Comment on above: Order Comment: Order Added by Discern Expert. Performed By: #### 2 970664, 1916169, 0939940, 3027961, 4114755, 43450643 ####[address] [address] Basophils/Leukocytes Auto (Bld) [Pure # fraction] 0.0 E9/L Normal 0.0-0.2 [facility] Comment on above: Order Comment: Order Added by Discern Expert. Performed By: #### 2 342356, 8957527, 8432705, 7142329, 0284112, 07330039 ####[address] [address] Eosinophils/100 WBC (Bld) 1.9 % Normal 0.0-8.0 [facility] Comment on above: Order Comment: Order Added by Discern Expert. Performed By: #### 2 273128, 9293564, 7400380, 7274918, 9384540, 20754161 ####[address] [address] Eosinophils/Leukocytes Auto (Bld) [Pure # fraction] 0.2 E9/L Normal 0.0-0.5 [facility] Comment on above: Order Comment: Order Added by Discern Expert. Performed By: #### 2 343162, 1799104, 5896522, 9186594, 4365309, 77921524 ####[address] [address] Lymphocytes/100 WBC (Bld) 23.4 % Normal 14.0-50.0 [facility] Comment on above: Order Comment: Order Added by Discern Expert. Performed By: #### 2 344702, 7470491, 3352854, 1495001, 0674043, 43875889 ####[address] [address] Lymphocytes/Leukocytes Auto (Bld) [Pure # fraction] 2.0 E9/L Normal 1.0-4.0 [facility] Comment on above: Order Comment: Order Added by Discern Expert. Performed By: #### 2 326526, 8514987, 1450069, 4531481, 3779791, 86278797 ####[address] [address] Monocytes/100 WBC (Bld) 6.9 % Normal 4.0-14.0 [facility] Comment on above: Order Comment: Order Added by Discern Expert. Performed By: #### 2 520370, 2029824, 2659304, 9605630, 3548965, 21494994 ####[address] [address] Monocytes/Leukocytes Auto (Bld) [Pure # fraction] 0.6 E9/L Normal 0.2-1.0 [facility] Comment on above: Order Comment: Order Added by Discern Expert. Performed By: #### 2 333038, 7047831, 9812414, 4556824, 1905457, 64087760 ####[address] [address] Neutrophils/100 WBC (Bld) 67.2 % Normal 36.0-75.0 [facility] Comment on above: Order Comment: Order Added by Discern Expert. Performed By: #### 2 124000, 3433030, 2743028, 1067423, 8843242, 70762949 ####[address] [address] Neutrophils/Leukocytes Auto (Bld) [Pure # fraction] 5.6 E9/L Normal 2.0-7.5 [facility] Comment on above: Order Comment: Order Added by Discern Expert. Performed By: #### 2 232460, 1921743, 6183990, 9590711, 9849538, 20523753 ####[address] [place] [address] CBC w/ Auto Diffon 3 Erythrocyte distribution width (RBC) [Ratio] 18.2 % High 10.9-14.2 [facility] Comment on above: Performed By: #### 2 247661, 0356376, 0882988, 1707712, 8734097, 94009232 ####[address] [place] [address] Hematocrit (Bld) [Volume fraction] 34.3 % Normal 34.0-46.0 [facility] Comment on above: Performed By: #### 2 444227, 3230015, 6781164, 1680178, 4724609, 12236995 ####[address] [address] Hemoglobin (Bld) [Mass/Vol] 11.5 g/dL Low 12.0-16.0 [facility] Comment on above: Performed By: #### 2 943635, 7919831, 0022480, 6881409, 1984160, 25838309 ####[address] [address] MCH (RBC) [Entitic mass] 30.6 pg Normal 27.0-34.0 [facility] Comment on above: Performed By: #### 2 805447, 6865053, 4498096, 5389544, 0446879, 24857876 ####[address] [address] MCHC (RBC) [Mass/Vol] 33.6 g/dL Normal 31.4-36.0 [facility] Comment on above: Performed By: #### 2 347430, 0517567, 3782009, 1457557, 9892906, 19471072 ####[address] [address] MCV (RBC) [Entitic vol] 91.0 fL Normal 80.0-100.0 [facility] Comment on above: Performed By: #### 2 383947, 8519751, 9963714, 0952498, 3103966, 15442669 ####[facility] [address] [place] [address] Platelet mean volume (Bld) [Entitic vol] 9.8 fL Normal 6.4-10.8 [facility] Comment on above: Performed By: #### 2 187702, 2363404, 3412051, 9756211, 6921305, 96655638 ####[facility] [address] [place] [address] Platelets (Bld) [#/Vol] 283.0 E9/L Normal 150.0-500.0 [facility] Comment on above: Performed By: #### 2 954063, 6620907, 2146988, 9114668, 4078594, 18937301 ####[address] [address] RBC (Bld) [#/Vol] 3.8 E12/L Low 4.3-5.9 [facility] Comment on above: Performed By: #### 2 612589, 0559725, 6623711, 5437168, 4285906, 24077957 ####[facility] [address] [place] [address] WBC corrected for nucl RBC Auto (Bld) [#/Vol] 8.4 E9/L Normal 4.0-11.0 [facility] Comment on above: Performed By: #### 2 016019, 0577057, 3801938, 7294772, 2574328, 77742473 ####[facility] [address] [place] [address] CMPon 06-09-2023 Albumin [Mass/Vol] 4.1 g/dL Normal 3.3-5.0 [facility] Comment on above: Performed By: #### 2 979958, 0880521, 7681159, 9983322, 4912174, 07852179 ####[address] [place] [address] Albumin/Globulin (S) [Mass conc ratio] 1.3 Normal 1.1-2.2 [facility] Comment on above: Performed By: #### 2 855960, 3596284, 2951995, 2869539, 9562811, 37578069 ####[facility] [address] [place] [address] ALP [Catalytic activity/Vol] 58 Int._Unit/L Normal 21-98 [facility] Comment on above: Performed By: #### 2 822032, 5538902, 0974048, 8386151, 2570444, 08740338 ####[facility] [address] [place] [address] ALT No additional P-5'-P [Catalytic activity/Vol] 18 Int._Unit/L Normal 6-46 [facility] Comment on above: Performed By: #### 2 936519, 6148237, 6230697, 7980810, 7265494, 92661852 ####[facility] [address] [place] [address] AST [Catalytic activity/Vol] 20 Int._Unit/L Normal 5-43 [facility] Comment on above: Performed By: #### 2 967339, 2144861, 8297615, 8575867, 5701291, 64112804 ####[facility] [address] [place] [address] Bilirubin [Mass/Vol] 0.1 mg/dL Normal 0.0-1.1 [facility] Comment on above: Performed By: #### 2 307313, 5414226, 4251796, 7146148, 2749295, 58052046 ####[facility] [address] [place] [address] Creatinine [Mass/Vol] 0.6 mg/dL Normal 0.5-1.3 [facility] Comment on above: Performed By: #### 2 019443, 6303695, 7833756, 4109142, 6747869, 43597380 ####[facility] [address] [place] [address] Globulin (S) [Mass/Vol] 3.2 g/dL Normal 1.4-4.0 [facility] Comment on above: Performed By: #### 2 180737, 8260663, 0054209, 1656554, 9116879, 17807464 ####[facility] [address] [place] [address] Protein [Mass/Vol] 7.3 g/dL Normal 6.0-7.8 [facility] Comment on above: Performed By: #### 2 406140, 1942466, 7058288, 8891155, 1504297, 73833769 ####[facility] [address] [place] [address] Urea nitrogen [Mass/Vol] 15 mg/dL Normal 5-21 [facility] Comment on above: Performed By: #### 2 643064, 3131608, 8346725, 3111954, 6341076, 69695661 ####[facility] [address] [place] [address] Urea nitrogen/Creatinine [Mass ratio] 25 No Units High 10-20 [facility] Comment on above: Performed By: #### 2 958057, 8995801, 8835799, 2373511, 4425720, 19270749 ####[facility] [address] [place] [address] Anion gap [Moles/Vol] 13 mmol/L Normal 6-16 [facility] Comment on above: Performed By: #### 2 387675, 3632025, 4962169, 4767102, 5773915, 83679992 ####[facility] [address] [place] [address] Calcium [Mass/Vol] 9.3 mg/dL Normal 8.9-11.1 [facility] Comment on above: Performed By: #### 2 862582, 3592266, 9539211, 0969947, 1992272, 01901743 ####[facility] [address] [place] [address] Chloride [Moles/Vol] 107 mmol/L Normal 101-111 [facility] Comment on above: Performed By: #### 2 208832, 9092209, 0297263, 7845785, 1785203, 89064645 ####[facility] [address] [place] [address] CO2 [Moles/Vol] 23 mmol/L Normal 21-31 [facility] Comment on above: Performed By: #### 2 049236, 4974129, 9061465, 1420653, 0583452, 01423713 ####[facility] [address] [place] [address] Glucose [Mass/Vol] 91 mg/dL Normal 55-199 [facility] Comment on above: Result Comment: If t his glucose result represents a fasting glucose, interpretation should refer to the following reference range: 55-99 mg/dL Performed By: #### 2 979886, 2680488, 5064765, 9434079, 5644658, 10697109 ####[facility] [address] [place] [address] Potassium [Moles/Vol] 3.6 mmol/L Normal 3.5-5.3 [facility] Comment on above: Performed By: #### 2 791646, 4382939, 5398641, 1829245, 8621695, 96557197 ####[facility] [address] [place] [address] Sodium [Moles/Vol] 139 mmol/L Normal 135-145 [facility] Comment on above: Performed By: #### 2 669794, 0102911, 4932549, 0725178, 1298393, 40975390 ####[facility] [address] [place], [place] [address] Consent for Treatmenton 05-16 Consent for Treatment [id number] D:127 Normal [facility] ED Clinical Summaryon 2022 ED Clinical Summary (Inserted Image. Jordana ble to display) [address], [place] [address] ED Clinical Summary Person Information Name: SHAZIA CHOU [place] Age: 32 Years : 1990 Sex: Female Language: Romanian PCP: Jennie Durand DO Marital Status: Phone: [phone] Visit Id: Visit Reason: Headache; HEADACHE Speciality: [...] 06/09/2023 18:42:22 06/09/2023 18:42:22 06/09/2023 18:42:22 ADDRESS: [address] [place] [phone] [facility] DOC [...] (at bedtime). PATIENT EDUCATION INFORMATION: Instructions: Paresthesia, Tuvw-vd-Fabq; Migraine Headache, Sbci-ty-Fudz Follow up: With: Address: When: [facility] In 3 days 06/12/2023 With: Address: When: [facility] [address], [facility], [place] [id number] [facility] (1) In 3 days 06/12/2023 DIAGNOSIS: 1:Headache; 2:Paresthesia of arm Normal [facility] ED Patient Education Noteon 06-09-2023 [...] liquor (44 mL). General instructions ? Take dfjs-sqt-vawfjze and prescription medicines only as told by [...] provider. Document Revised: 05/12/2022 Document Reviewed: 05/12/2022 [employer] Patient Education ? 2022 [employer] Migraine Headache A migraine headache is [...] ? Tiredness. (more content not included)... Normal [facility] ED Patient Summaryon 023 ED Patient Summary (Inserted Image. Jordana ble to display) [address] [address] Patient Discharge Instructions Person Information Name: SHAZIA CHOU Age: 32 Years Arrival Date: 06/09/2023 15:33:36 Discharge Diagnosis: 1:Headache; 2:Paresthesia of arm Primary Care Physician: Jennie Durand DO Provider Information Primary Provider: Alexis Shukla DO Advanced Pecan Cleaner:None The exam and treatment you received in the Emergency Department were for an urgent problem and are not intended as complete care. It is important that you follow up with a doctor, nurse practitioner, or physician?s early childhood teacher assistant for ongoing care. If your symptoms become worse or you do not improve as expected and you are unable to reach your usual health care provider, you should return to the Emergency Department. We are available 24 hours a day. SHAZIA CHOU has been given the following list of patient education materials, prescriptions and follow-up instructions: Follow-up Instructions: With: Address: When: [facility] In 3 days 06/12/2023 With: Address: When: Jennie Durand [address], Mic [address], [facility] [address] [place] [address] [facility] () In 3 days 06/12/2023 In the event that this physician does not participate in your insurance network, please consult with your insurance company to find a nearby participating provider. Patient Education Materials: Paresthesia, Fnfj-cc-Eijt; Migraine Headache, Bpck-ya-Upkg A MESSAGE TO ALL PATIENTS REGARDING OPIOIDS PRESCRIPTION OPIOIDS: WHAT YOU NEED TO KNOW Prescription opioids can be used to help relieve idubzkte-xr-htykuv pain and are often prescribed following a [...] addiction, tell (more content not included)... Normal [facility] Ethanolon 06-09-2023 Ethanol [Mass/Vol] mg/dL Normal <=7 [facility] Comment on above: Performed By: #### 2 082581 ####[facility] [address] [place] [address] Salicylateon 06-09-2023 Salicylates [Mass/Vol] mg/dL Low 6-29 [facility] Comment on above: Performed By: #### 2 774531, 7977300, 8888032, 3994412, 5017314, 50424418 ####[facility] [address] [place] [address] U Drug Screenon 06-09-2023 Amphetamines Screen method >1000 ng/mL Ql (U) Negative Normal Negative [facility] Comment on above: Result Comment: Nega tive Cutoff: <1000 ng/mL Performed By: #### 2 672155 ####[facility] [address] [place] [address] Barbiturates Screen Ql (U) Negative Normal Negative [facility] Comment on above: Result Comment: Nega tive Cutoff: <200 ng/mL Performed By: #### 2 115439 ####[facility] [address] [place] [address] Benzodiazepines Ql (U) Negative Normal Negative [facility] Comment on above: Result Comment: Nega tive Cutoff: <200 ng/mL Performed By: #### 2 023871 ####[facility] [address] [place] [address] Cocaine Ql (U) Negative Normal Negative [facility] Comment on above: Result Comment: Nega tive Cutoff: <300 ng/mL Performed By: #### 2 465205 ####[facility] [address] [place] [address] Opiates Screen Ql (U) Negative Normal Negative [facility] Comment on above: Result Comment: Nega tive Cutoff: <300 ng/mL Performed By: #### 2 556318 ####[facility] [address] [place] [address] Phencyclidine Screen method >25 ng/mL Ql (U) Negative Normal Negative [facility] Comment on above: Result Comment: Nega tive Cutoff: <25 ng/mL These drug screen results are to be used for medical (i.e., treatment) purposes only. Unconfirmed drug screening results must not be used for non-medical purposes (e.g., employment testing, legal testing). Performed By: #### 2 475937 ####[facility] [address] [place] [address] Tetrahydrocannabinol Screen method >50 ng/mL Ql (U) Negative Normal Negative [facility] Comment on above: Result Comment: Nega tive Cutoff: <50 ng/mL Performed By: #### 2 596643 ####[facility] [address] [place] [address] UA With Cult Reflexon 2022 Bilirubin Ql (U) Negative Normal Negative [facility] Comment on above: Performed By: #### 1 [id number] #### [facility] Laboratory [address] [place] [address] Clarity (U) CLEAR Normal Clear [facility] Comment on above: Performed By: #### 1 9885323 #### [facility] [address] [place] [address] Color (U) YELLOW Normal Yellow [facility] Comment on above: Performed By: #### 1 2553236 #### [facility] [address] [place] [address] Crystals LM Ql (Urine sed) Present Normal [facility] Comment on above: Performed By: #### 1 8875170 #### [facility] [address] [place] [address] Epithelial cells.squamous LM.HPF (Urine sed) [#/Area] 0-2 Normal 0-2 [facility] Comment on above: Performed By: #### 1 5607234 #### [facility] [address] [place] [address] Glucose Test strip (U) [Mass/Vol] Negative Normal Negative [facility] Comment on above: Performed By: #### 1 0850253 #### [facility] [address] [place] [address] Hemoglobin Ql (U) Negative Normal Negative [facility] Comment on above: Performed By: #### 1 5542943 #### [facility] [address] [place] [address] Ketones (U) [Mass/Vol] Negative Normal Negative [facility] Comment on above: Performed By: #### 1 4855991 #### [facility] [address] [place] [address] Malin.plasma/Malin .RBC (Bld) [Mass ratio] 0-3 Normal 0-3 [facility] Comment on above: Performed By: #### 1 8075922 #### [facility] [address] [place] [address] Nitrite Ql (U) Negative Normal Negative [facility] Comment on above: Performed By: #### 1 0582559 #### [facility] [address] [place] [address] pH (U) 6.0 [pH] Invalid Interpretation Code 5.0-9.0 [facility] Comment on above: Performed By: #### 1 9979834 #### [facility] [address] [place] [address] Protein (U) [Mass/Vol] Negative Normal Negative [facility] Comment on above: Performed By: #### 1 8053350 #### [facility] [address] [place] [address] Specific gravity (U) [Rel density] 1.010 Invalid Interpretation Code 1.005-1.030 [facility] Comment on above: Performed By: #### 1 2527499 #### [facility] [address] [place] [address] Type of Urine collection method Clean Catch Normal [facility] Comment on above: Performed By: #### 1 0311972 #### [facility] [address] [place] [address] Urobilinogen Qn (U) 0.2 {Lucila'U}/dL Normal 0.0-1.0 [facility] Comment on above: Performed By: #### 1 6474963 #### [facility] [address] [place] [address] WBC Auto Ql (U) Negative Normal Negative [facility] Comment on above: Performed By: #### 1 0855590 #### [facility] [address] [place] [address] WBC LM.HPF (Urine sed) [#/Area] 0-5 Normal 0-5 [facility] Comment on above: Performed By: #### 1 6966367 #### [facility] [address] [place] [address] eGFRon 06-09-2023 GFR/1.73 sq M.predicted among non-blacks MDRD (S/P/Bld) [Vol rate/Area] 121 mL/min/1.73 m2 Normal >=59 [facility] Comment on above: Order Comment: Order added by Discern Expert. Result Comment: Attorney gurpreet kidney disease could be indicated at eGFR's of less than 60 mL/min/1.73m2. Kidney failure is indicated at less than 15 mL/min/1.73m2. Performed By: #### 2 040067, 0649852, 7530637, 1808688, 5695895, 40450574 ####[facility] [address] [place] [address] Vit Aon 03-24-2023 Retinol [Mass/Vol] 42.9 microgram/dL Invalid Interpretation Code 18.9-57.3 [facility] Comment on above: Result Comment: Refe rence intervals for vitamin A determined from [facility] internal studies. Individuals with vitamin A less than 20 ug/dL are considered vitamin A deficient and those with serum concentrations less than 10 ug/dL are considered severely deficient. This test was developed and its performance characteristics determined by [employer]. It has not been cleared or approved by the Food and Drug Administration. Performed at: [place] [id number] MD Shorty Rodríguez Performed By: #### 2 197814, 49912920, 2127573, 3905234, 86138556, 92140572, 917973166, 5412649, 5091660, 14730814, 5066962, 5474144, 827254182, 28841444, 6437031, 3560472, 0044127, 9389569 ####[facility] [address] [place] [address] Vit B1on 03-24-2023 Thiamine (Bld) [Moles/Vol] 171.7 nmol/L Invalid Interpretation Code 66.5-200.0 [facility] Comment on above: Result Comment: This test was developed and its performance characteristics determined by [employer]. It has not been cleared or approved by the Food and Drug Administration. Performed at: [address] [id number] MD Shorty Rodríguez Performed By: #### 2 732980, 74021080, 9800625, 8654117, 77647302, 27760855, 810981025, 8365317, 9818890, 39958845, 6398435, 5739513, 107094719, 14417422, 5155762, 9600489, 4091455, 4164394 ####[facility] [address] [place] [address] Zinc Lvlon 03-24-2023 Zinc [Mass/Vol] 85 microgram/dL Invalid Interpretation Code 44-115 [facility] Comment on above: Result Comment: This test was developed and its performance characteristics determined by [employer]. It has not been cleared or approved by the Food and Drug Administration. Detection Limit = 5 Performed at: [address] [id number] MD Shorty Rodríguez Performed By: #### 2 333589, 28941733, 8977682, 8869590, 00922414, 54031315, 820225887, 3181717, 1797882, 64319568, 4264925, 6919688, 332630721, 62519643, 5015975, 4913707, 8449684, 0446707 ####[facility] [address] [place] [address] PTH Intacton 03-20-2023 Parathyrin.intact [Mass/Vol] 17 pg/mL Invalid Interpretation Code [facility] Comment on above: Result Comment: Perf ormed at: [facility] [address] [id number] PhD Cordelia Madera Performed By: #### 1 3614482 ####[facility] [address] [place] [address] Auto Diffon 03-19-2023 Basophils/100 WBC (Bld) 1.1 % Normal 0.0-2.0 [facility] Comment on above: Order Comment: Order Added by Discern Expert. Performed By: #### 2 133070, 48467290, 3529648, 5401936, 83525053, 46405207, 889636437, 0563363, 4803471, 99330975, 8959970, 7929101, 438323784, 05695932, 9069485, 1795918, 0515562, 7215305 ####[facility] [address] [place] [address] Basophils/Leukocytes Auto (Bld) [Pure # fraction] 0.1 E9/L Normal 0.0-0.2 [facility] Comment on above: Order Comment: Order Added by Discern Expert. Performed By: #### 2 691453, 58208760, 2557371, 9491982, 93165321, 92727544, 981632521, 1029260, 8718417, 42371861, 8992947, 3796498, 901258338, 62249820, 0895218, 1337303, 6565378, 9563794 ####[facility] [address] [place] [address] Eosinophils/100 WBC (Bld) 4.1 % Normal 0.0-8.0 [facility] Comment on above: Order Comment: Order Added by Discern Expert. Performed By: #### 2 268015, 14257185, 0475607, 7399878, 92282115, 78777142, 696641789, 3591383, 5444740, 75355248, 7704853, 5855179, 197713008, 19271150, 5403490, 2146613, 1281113, 7522649 ####[facility] [address] [place] [address] Eosinophils/Leukocytes Auto (Bld) [Pure # fraction] 0.4 E9/L Normal 0.0-0.5 [facility] Comment on above: Order Comment: Order Added by Discern Expert. Performed By: #### 2 213821, 59421432, 4156700, 7613511, 41206680, 05375316, 396986776, 5765208, 8401609, 98838892, 7993653, 9660901, 765953853, 94252020, 3260142, 8876290, 1387521, 2056734 ####[place] [address] [place] [address] Lymphocytes/100 WBC (Bld) 20.5 % Normal 14.0-50.0 [facility] Comment on above: Order Comment: Order Added by Discern Expert. Performed By: #### 2 198848, 38439763, 0818764, 6469967, 45067438, 29969587, 694918965, 2624625, 0190098, 03583594, 8716236, 3443710, 115318964, 68721561, 1667836, 9607277, 1830754, 9966142 ####[place] [address] [place] [address] Lymphocytes/Leukocytes Auto (Bld) [Pure # fraction] 2.1 E9/L Normal 1.0-4.0 [facility] Comment on above: Order Comment: Order Added by Discern Expert. Performed By: #### 2 346502, 26580976, 3410502, 8690776, 25190137, 64732742, 004886478, 0026937, 0190452, 96461870, 7792302, 8050089, 533047862, 49822167, 8667342, 8151526, 7952905, 5738641 ####[facility] [address] [place] [address] Monocytes/100 WBC (Bld) 7.6 % Normal 4.0-14.0 [facility] Comment on above: Order Comment: Order Added by Discern Expert. Performed By: #### 2 141200, 40161677, 7826876, 9304913, 64264614, 82879534, 503700666, 5661896, 1253589, 58262560, 5603184, 5470854, 265454422, 69342573, 9892457, 7790002, 6161248, 9635163 ####[place] [address] [place] [address] Monocytes/Leukocytes Auto (Bld) [Pure # fraction] 0.8 E9/L Normal 0.2-1.0 [facility] Comment on above: Order Comment: Order Added by Discern Expert. Performed By: #### 2 376962, 90322473, 7212263, 4505953, 22787193, 01545843, 239993637, 9058241, 1640296, 95993697, 4026234, 5412689, 759306428, 07504071, 6305138, 0454135, 4345811, 9202013 ####[place] [address] [place] [address] Neutrophils/100 WBC (Bld) 66.7 % Normal 36.0-75.0 [facility] Comment on above: Order Comment: Order Added by Discern Expert. Performed By: #### 2 737522, 40729389, 0403088, 7987044, 66638397, 82217008, 794239324, 5381112, 3790799, 28442066, 7503268, 2266014, 003957798, 11033995, 5300598, 9996510, 0895979, 3748455 ####[facility] [address] [place] [address] Neutrophils/Leukocytes Auto (Bld) [Pure # fraction] 6.8 E9/L Normal 2.0-7.5 [facility] Comment on above: Order Comment: Order Added by Discern Expert. Performed By: #### 2 391594, 44921892, 7081634, 2715738, 74473184, 41197487, 960856915, 9266145, 9902834, 45492201, 3017801, 4846813, 426076882, 53663129, 4495602, 3050648, 2628552, 4234740 ####[place] [address] [place] [address] CBC w/ Auto Diffon 3 Erythrocyte distribution width (RBC) [Ratio] 16.0 % High 10.9-14.2 [facility] Comment on above: Performed By: #### 2 143506, 35048845, 0128172, 2324742, 11779402, 26506233, 016656256, 5069861, 3586858, 32294639, 6739462, 7856319, 169443843, 49262755, 3284177, 2682555, 4802675, 5964910 ####[place] [address] [place] [address] Hematocrit (Bld) [Volume fraction] 37.1 % Normal 34.0-46.0 [facility] Comment on above: Performed By: #### 2 868180, 41274729, 8141090, 8520974, 58545036, 25853377, 206906346, 2093256, 2994721, 93815095, 1383762, 5055652, 680622726, 02878022, 7127084, 0376541, 3826472, 9774811 ####[place] [address] [place] [address] Hemoglobin (Bld) [Mass/Vol] 12.6 g/dL Normal 12.0-16.0 [facility] Comment on above: Performed By: #### 2 544664, 67782327, 5342114, 5081446, 69048790, 32032352, 825923719, 4539939, 1824680, 09132939, 1414739, 2520748, 767518288, 28148968, 4922305, 9066783, 0586894, 2587994 ####[facility] [address] [place] [address] MCH (RBC) [Entitic mass] 31.2 pg Normal 27.0-34.0 [facility] Comment on above: Performed By: #### 2 794568, 16014023, 7773141, 1096616, 78194723, 50373321, 506326483, 9541021, 2384106, 71225694, 6176792, 7631840, 900124394, 88190567, 8471766, 1416795, 1608808, 0308273 ####[facility] [address] [place] [address] MCHC (RBC) [Mass/Vol] 33.9 g/dL Normal 31.4-36.0 [facility] Comment on above: Performed By: #### 2 777116, 17799933, 4570014, 2975682, 31976513, 06457137, 824924988, 8556437, 6828504, 69253965, 2673198, 2910580, 430348054, 35213584, 5816599, 4128220, 4267597, 4591012 ####[facility] [address] [place] [address] MCV (RBC) [Entitic vol] 92.0 fL Normal 80.0-100.0 [facility] Comment on above: Performed By: #### 2 832421, 98376682, 4045866, 4851371, 98903034, 19048768, 949240185, 2326088, 4485758, 85743093, 4839913, 0029417, 744391254, 61232420, 1065485, 1895517, 6321539, 9245751 ####[facility] [address] [place] [address] Platelet mean volume (Bld) [Entitic vol] 9.8 fL Normal 6.4-10.8 [facility] Comment on above: Performed By: #### 2 181242, 75343724, 4601726, 7222984, 17349771, 42074646, 633554879, 1081535, 8638869, 83426907, 3016898, 0764338, 562108679, 70922860, 5873128, 1825108, 8986726, 3607916 ####[facility] [address] [place] [address] Platelets (Bld) [#/Vol] 369.0 E9/L Normal 150.0-500.0 [facility] Comment on above: Performed By: #### 2 421264, 58195673, 1233517, 0542905, 97173203, 13950952, 244802505, 3219637, 0845352, 73133483, 9768122, 2641508, 956011623, 69571603, 9403061, 3664206, 3651158, 5730816 ####[address] [address] RBC (Bld) [#/Vol] 4.0 E12/L Low 4.3-5.9 [facility] Comment on above: Performed By: #### 2 806641, 25353210, 4103664, 8907902, 77203198, 32224699, 698819812, 1729336, 9171096, 97943269, 8512549, 4894288, 779236123, 80893961, 4983715, 0866055, 0467598, 3115588 ####[address] [address] WBC corrected for nucl RBC Auto (Bld) [#/Vol] 10.1 E9/L Normal 4.0-11.0 [facility] Comment on above: Performed By: #### 2 173049, 26023117, 0250536, 6702841, 84465568, 41958475, 734813548, 0450395, 5306765, 71674010, 2089079, 2049354, 231972771, 23089136, 5268823, 2157307, 6900113, 2762469 ####[facility] [address] [place] [address] CHEMISTRYOrdered By: SYSTEM SYSTEM on 03-19-2023 25-hydroxyvitamin [...] 12 mg/dL Normal 5 - 21 mg/dL [facility] Urea nitrogen/Creatinine [Mass ratio] 17 mg/mg Normal 10 - 20 [facility] [place] CHEMISTRYOrdered By: Torres Ulloa on 03-19-2023 HbA1c (Bld) [Mass fraction] 5.8 % Normal <=5.9% [facility] [place] ChemAutoSS CMPon 03-19-2023 Albumin [Mass/Vol] 4.0 g/dL Normal 3.3-5.0 [facility] Comment on above: Performed By: #### 2 703170, 72472221, 9119742, 5682807, 05184275, 31375447, 445984886, 9205748, 0804886, 75642854, 8152039, 5728036, 584338438, 39865611, 4843352, 8078749, 2783488, 5140437 ####[facility] [address] [place] [address] Albumin/Globulin (S) [Mass conc ratio] 1.2 Normal 1.1-2.2 [facility] Comment on above: Performed By: #### 2 767484, 27522727, 3883939, 9221695, 80904512, 50854585, 028841548, 4965859, 9238793, 84940546, 2415911, 9965088, 365006470, 13705466, 4877420, 5928721, 7380904, 5837896 ####[facility] [address] [place] [address] ALP [Catalytic activity/Vol] 61 Int._Unit/L Normal 21-98 [facility] Comment on above: Performed By: #### 2 546622, 55098108, 4775827, 4009341, 85754431, 02281926, 446340498, 7659461, 4955235, 16231773, 7266433, 4770473, 547613697, 99518607, 6080048, 1746111, 1468676, 5814926 ####[facility] [address] [place] [address] ALT No additional P-5'-P [Catalytic activity/Vol] 17 Int._Unit/L Normal 6-46 [facility] Comment on above: Performed By: #### 2 376974, 49049963, 0495980, 9245752, 02496966, 46490496, 715658759, 0049288, 0042556, 63153994, 1511805, 5882815, 652114807, 65964391, 5980547, 0872474, 8894237, 4658778 ####[facility] [address] [place] [address] Anion gap [Moles/Vol] 9 mmol/L Normal 6-16 [facility] Comment on above: Performed By: #### 2 001157, 21676025, 2621415, 4037163, 30401618, 40541501, 639130652, 8118495, 1008335, 86975880, 8791658, 9916207, 575947047, 17133460, 1271277, 3960244, 6684443, 3059878 ####[facility] [address] [place] [address] AST [Catalytic activity/Vol] 20 Int._Unit/L Normal 5-43 [facility] Comment on above: Performed By: #### 2 882896, 04512142, 3927594, 5752416, 90746512, 64790378, 727831173, 7300807, 2975797, 41844537, 8735526, 2245602, 577134834, 34578680, 7513051, 0940072, 7442624, 6863805 ####[facility] [address] [place] [address] Bilirubin [Mass/Vol] 0.4 mg/dL Normal 0.0-1.1 [facility] Comment on above: Performed By: #### 2 491096, 05366001, 3243369, 6121105, 47952162, 69649115, 836507492, 8147323, 7191138, 54972909, 7548850, 6744453, 697495777, 31059716, 4893673, 2738704, 2143904, 9152268 ####[facility] [address] [place] [address] Calcium [Mass/Vol] 9.2 mg/dL Normal 8.9-11.1 [facility] Comment on above: Performed By: #### 2 187040, 14615350, 6883817, 8211258, 18487278, 35134423, 130681226, 6548270, 8601569, 77545444, 9864898, 2038986, 967697395, 31097798, 8162833, 0021682, 6939067, 2351912 ####[facility] [address] [place] [address] Chloride [Moles/Vol] 113 mmol/L High 101-111 [facility] Comment on above: Performed By: #### 2 882921, 46316411, 1126956, 0708043, 16814912, 20506003, 411076782, 3097666, 8137222, 27315090, 5405139, 1086877, 330035918, 47354108, 9704552, 3853565, 4315768, 8199692 ####[facility] [address] [place] [address] CO2 [Moles/Vol] 22 mmol/L Normal 21-31 [facility] Comment on above: Performed By: #### 2 853876, 67271265, 1558535, 2993002, 05422103, 02940596, 392705046, 3504675, 0961149, 57369203, 0467518, 5026415, 720742607, 72846102, 6725563, 3519708, 5312129, 6451923 ####[facility] [address] [place] [address] Creatinine [Mass/Vol] 0.7 mg/dL Normal 0.5-1.3 [facility] Comment on above: Performed By: #### 2 748955, 85428914, 2777864, 9326227, 54177628, 99669500, 359352870, 2090907, 8798821, 03102362, 6189620, 5728897, 969169701, 42609224, 8878933, 5660421, 8859257, 5324471 ####[facility] [address] [place] [address] Globulin (S) [Mass/Vol] 3.2 g/dL Normal 1.4-4.0 [facility] Comment on above: Performed By: #### 2 370807, 73145186, 2917420, 9078307, 95506100, 92353437, 274567165, 3649529, 1187673, 99690369, 9437906, 9612537, 628316636, 24641995, 6445192, 1560288, 9793274, 1137727 ####[facility] [address] [place] [address] Glucose [Mass/Vol] 103 mg/dL Normal 55-199 [facility] Comment on above: Result Comment: If t his glucose result represents a fasting glucose, interpretation should refer to the following reference range: 55-99 mg/dL Performed By: #### 2 030506, 92326506, 5100655, 9292930, 51815383, 17604287, 363899179, 0571720, 7560764, 70915992, 6183921, 2674265, 770491507, 58545576, 6347235, 6335517, 5545795, 2469323 ####[facility] [address] [place] [address] Potassium [Moles/Vol] 3.8 mmol/L Normal 3.5-5.3 [facility] Comment on above: Performed By: #### 2 066746, 61026771, 6056219, 5671899, 85269090, 20204812, 225290981, 5340443, 8074515, 39258150, 6159826, 5982510, 962419709, 49445085, 3498606, 0410823, 7725819, 2826317 ####[facility] [address] [place] [address] Protein [Mass/Vol] 7.2 g/dL Normal 6.0-7.8 [facility] Comment on above: Performed By: #### 2 430970, 14599606, 1254925, 1891884, 02127154, 79832035, 802280560, 1715864, 0978266, 75682009, 8868012, 8823363, 880671871, 11928476, 2763772, 2178133, 9887818, 8356983 ####[facility] [address] [place] [address] Sodium [Moles/Vol] 140 mmol/L Normal 135-145 [facility] Comment on above: Performed By: #### 2 187325, 07712853, 3521116, 5814564, 56584224, 07449774, 846476231, 9543640, 4450751, 14766155, 4537430, 3115010, 121561518, 82470782, 2803998, 2537632, 9528810, 3018124 ####[facility] [address] [place] [address] Urea nitrogen [Mass/Vol] 12 mg/dL Normal 5-21 [facility] Comment on above: Performed By: #### 2 925005, 89209178, 0173953, 1834227, 23714707, 69537787, 409967721, 4829200, 7605871, 82259141, 1257094, 2349347, 193862281, 71418806, 8234033, 2443607, 9731508, 5711832 ####[facility] [address] [place] [address] Urea nitrogen/Creatinine [Mass ratio] 17 No Units Normal 10-20 [facility] Comment on above: Performed By: #### 2 345483, 43882400, 6292319, 1402994, 89731000, 10946978, 936407173, 2244953, 6179425, 58847909, 0802578, 8970230, 477342301, 20672948, 5245823, 1480792, 4395878, 9967077 ####[facility] [address] [place] [address] Consent for Treatmenton Consent for Treatment [id number] D:127 Normal [facility] Ferritinon 03-19-2023 Ferritin [Mass/Vol] 6 ng/mL Low 11-307 [facility] Comment on above: Result Comment: NORM ALS MEN <30 YRS 16-132 ng/mL MEN >30 YRS 8-338 ng/mL WOMEN (PREMEN) 6-104 ng/mL WOMEN (POSTMEN) 12-210 ng/mL Performed By: #### 2 234332, 17869614, 6629672, 7592400, 82477292, 16545345, 669689466, 9337110, 0744082, 91507670, 4859599, 2179527, 539704350, 07394889, 2208873, 0843389, 9996653, 4640016 ####[facility] [address] [place] [address] Folateon 03-19-2023 Folate [Mass/Vol] 15.6 ng/mL Normal >=6.7 [facility] Comment on above: Performed By: #### 2 525099, 41056028, 1710006, 9136597, 53503383, 66348178, 524975105, 1754613, 7313805, 69190935, 6694205, 5654006, 561982422, 48480485, 3514953, 1362440, 2776381, 8512134 ####[facility] [address] [place] [address] Free T4on 03-19-2023 Free T4 [Mass/Vol] 0.88 ng/dL Normal 0.58-1.64 [facility] Comment on above: Performed By: #### 2 533074, 85088059, 3412661, 1134314, 70834842, 09839175, 701516907, 4983377, 3280998, 94713596, 5706434, 2894861, 534077817, 64041014, 3831496, 0632246, 5274400, 1402731 ####[facility] [address] [place] [address] HEMATOLOGYOrdered By: SYSTEM SYSTEM on 03-19-2023 Basophils/100 [...] 37.1 % Normal 34.0 - 46.0 % [facility]eAutoSS Hemoglobin (Bld) [Mass/Vol] 12.6 g/dL Normal 12.0 - 16.0 gm/dL FT [facility] MCH (RBC) [Entitic mass] 31.2 pg Normal 27.0 - 34.0 pg FT [facility]eAuto[facility] MCHC (RBC) [Mass/Vol] 33.9 g/dL Normal 31.4 - 36.0 gm/dL FT HemeAuto[facility] MCV (RBC) [Entitic vol] 92.0 fL [...] Normal 4.0 - 11.0 E9/L [facility] IakJ5ksk 03-19-2023 HbA1c (Bld) [Mass fraction] 5.8 % Normal <=5.9 [facility] Comment on above: Performed By: #### 2 671353, 33787764, 6840764, 4664308, 85769197, 97206243, 585168956, 6610013, 9512142, 34633264, 1097870, 1381511, 953349377, 26763112, 6798181, 6852611, 9140819, 2828288 ####[facility] [address] [place] [address] Ironon 03-19-2023 Iron [Mass/Vol] 69 microgram/dL Normal 35-153 [facility] Comment on above: Performed By: #### 2 153727, 89617800, 3111936, 4776892, 92366357, 96719023, 527233812, 3710756, 7598656, 10697191, 9520976, 5330453, 298259666, 06883500, 8999136, 6176540, 1538809, 1835575 ####[facility] [address] [place] [address] Lipid Panelon 03-19-2023 Cholesterol [Mass/Vol] 167 mg/dL Normal 120-200 [facility] Comment on above: Performed By: #### 2 074576, 62083233, 9440059, 6136676, 42460771, 59953953, 252606498, 8807114, 8645055, 59761618, 2853955, 5912037, 633870283, 35610843, 4318025, 4126606, 2669274, 3565606 ####[facility] [address] [place] [address] Cholesterol in HDL [Mass/Vol] 72 mg/dL Invalid Interpretation Code [facility] Comment on above: Result Comment: HDL > or equal to 60 mg/dL: Low cardiovascular risk HDL < 40 mg/dL : High cardiovascular risk Performed By: #### 2 376406, 00697115, 1571119, 3865038, 20418858, 67914543, 868717717, 4970051, 3662797, 98827377, 7166989, 3204584, 666927356, 56703903, 5900137, 5471080, 6877697, 3266649 ####[facility] [address] [place] [address] Cholesterol in LDL [Mass/Vol] 72 mg/dL Normal <=129 [facility] Comment on above: Performed By: #### 2 416526, 82133079, 9209894, 2775319, 79385852, 84476753, 403897565, 1330823, 6485747, 75261163, 8247406, 2650423, 494165184, 00460517, 6031225, 0825566, 1829270, 5450182 ####[facility] [address] [place] [address] Cholesterol in VLDL [Mass/Vol] 14 mg/dL Normal 7-40 [facility] Comment on above: Performed By: #### 2 688913, 56418826, 6500407, 5897376, 29366803, 98847829, 500058867, 1758870, 5570415, 17571319, 2236014, 6677059, 907717464, 67960358, 0590814, 5571521, 9985070, 5412741 ####[facility] [address] [place] [address] Triglyceride [Mass/Vol] 69 mg/dL Normal <=149 [facility] Comment on above: Performed By: #### 2 702855, 71638983, 8131844, 8006305, 00063655, 56294405, 649553294, 5523977, 3302385, 08082832, 5555404, 0916044, 299852843, 95397788, 6945045, 4366603, 6313049, 5804799 ####[facility] [address] [place] [address] Magnesiumon 03-19-2023 Magnesium [Mass/Vol] 2.0 mg/dL Normal 1.3-2.4 [facility] Comment on above: Performed By: #### 2 434717, 43670201, 2918752, 2221693, 12505824, 87067992, 504071822, 8061230, 4010053, 83252349, 4349989, 8073673, 359159024, 17541926, 8937839, 9239100, 8243264, 8934359 ####[address] [place] [address] Physician Orderon 03-19-2023 Physician Order [id number] CD:127 Normal [facility] TIBC Calculatedon 03-19-2023 Iron binding capacity [Mass/Vol] 423 microgram/dL High 250-400 [facility] Comment on above: Performed By: #### 2 126605, 56667996, 0280414, 7661236, 22033182, 35473672, 242376874, 8576699, 9895638, 76468497, 8432082, 6734594, 774294884, 85674875, 3368615, 7938925, 1489251, 8399356 ####[facility] [address] [place] [address] Transferrin [Mass/Vol] 302 mg/dL Normal 200-370 [facility] Comment on above: Performed By: #### 2 983666, 07417237, 9244107, 1441223, 05026089, 94473134, 522140720, 7547285, 6841282, 75892002, 1727991, 5344285, 048956965, 02908776, 5630308, 8633197, 4222673, 9629638 ####[facility] [address] [place] [address] TSHon 03-19-2023 TSH Qn 0.61 m[IU]/L Normal 0.34-5.60 [facility] Comment on above: Performed By: #### 2 440402, 98844474, 2030790, 3756197, 90405384, 88979142, 209936931, 0316559, 9722007, 42188659, 7897818, 6129921, 260529318, 53250147, 5181094, 1632883, 8540980, 9847385 ####[facility] [address] [place] [address] Vit B12on 03-19-2023 Cobalamin (Vitamin B12) [Mass/Vol] 357 pg/mL Normal 50-1500 [facility] Comment on above: Performed By: #### 2 853603, 83499746, 7397146, 5869147, 60063180, 61266363, 334373755, 3742766, 5040148, 11996766, 3876918, 5326793, 960482722, 36737212, 2850535, 7289849, 0132212, 8606266 ####[facility] [address] [place] [address] Vitamin D 25 Hydroxyon 03-19 25-hydroxyvitamin D3 [Mass/Vol] 43.1 ng/mL Normal 30.0-100.0 [facility] Comment on above: Result Comment: Vit alberto D deficiency has been defined as a level of serum 25-OH vitamin D less than 20 ng/mL (1,2) by the [place] [employer] and an Endocrine Society practice guideline. The Endocrine Society further defined vitamin D insufficiency as a level between 21 and 29 ng/mL (2). 1. IOM ([place] of [employer]). 2010. Dietary reference intakes for calcium and D. [place]: The National Academies Press. 2. Willard MF, Luisa HUBBARD, Nestor MALDONADO, et al. Evaluation, treatment, and prevention of vitamin D deficiency: an Endocrine Society clinical practice guideline. JCEM. 2010; 96 (7):1911-30. Performed By: #### 2 630049, 39693907, 5476472, 0903133, 32094597, 18560559, 318484027, 1104484, 6049223, 24736638, 5399036, 2562697, 943343887, 33625734, 0539269, 4264197, 3113248, 6926598 ####[facility] [address] [place] [address] eGFRon 03-19-2023 GFR/1.73 sq M.predicted among non-blacks MDRD (S/P/Bld) [Vol rate/Area] 116 mL/min/1.73 m2 Normal >=59 [facility] Comment on above: Order Comment: Order added by Discern Expert. Result Comment: Attorney gurpreet kidney disease could be indicated at eGFR's of less than 60 mL/min/1.73m2. Kidney failure is indicated at less than 15 mL/min/1.73m2. Performed By: #### 2 686623, 90186617, 4668047, 1174788, 62307515, 66139765, 654273710, 2223795, 5489146, 20334069, 0827275, 1859986, 481134216, 75760785, 1980256, 3819745, 5901772, 0755107 ####[facility] [address] [place] [address] MRA Head veins WO and W cont rast Ramón 01-29-2023 IMPRESSION: Unremarkable MRV head with and without contrast. Gear Tester: PSCB Transcribe Date/Time: Jan 29 2023 2:40P [...] HISTORY: Idiopathic intracranial hypertension. TECHNIQUE: Intracranial 2-D znkh-ci-gkhsuj and postcontrast MRV with post-processing performed at the modality and 2D multiplanar and 3D maximum intensity projections were created, reviewed and archived. Contrast dose: 17 mL Dotarem administered intravenously. MQ: MRAB_4 COMPARISON: None. RESULT: INTRACRANIAL MRV: There is no evidence of significant narrowing, occlusion, or thrombosis of the dural venous sinuses. Note is made of a partially empty sella. DIVISION OF RADIOLOGY Provider, [facility] - 01/29/2023 * * *Final Report* * * DATE OF EXAM: Jan 29 2023 1:10PM LNM 0336 - MRV BRAIN WO/W IVCON / PROCEDURE REASON: Idiopathic intracranial hypertension * * * * Physician Interpretation * * * * EXAMINATION: MRV BRAIN WO/W IVCON CLINICAL HISTORY: Idiopathic intracranial hypertension. TECHNIQUE: Intracranial 2-D xrdi-vp-ifnbvb and postcontrast MRV with post-processing performed at [...] Unremarkable MRV head with and without contrast. Gear Tester: PSCB Transcribe Date/Time: Jan 29 2023 2:40P Dictated by : JENNIFER RUVALCABA MD This examination was interpreted and the report reviewed and electronically signed by: JENNIFER RUVALCABA MD on Jan 29 2023 2:44PM EST [facility] Radiology Study observation (narrative) [facility] MRA Head veins WO and W cont rast IVOrdered By: Ccf Provider on 01-29-2023 [facility] CHEMISTRYOrdered By: SYSTEM SYSTEM on 01-15-2023 Albumin [...] 99 mL/min/1.73 m2 Normal >=59mL/min/1 .73 m2 [facility] Chem S Globulin (S) [Mass/Vol] 3.0 g/dL [...] 0.9 % Normal 0.0 - 2.0 % [facility] Basophils/Leukocytes Auto (Bld) [Pure # fraction] [...] 7.2 % Normal 4.0 - 14.0 % [facility] Monocytes/Leukocytes Auto (Bld) [Pure # fraction] [...] 11.0 E9/L [facility] SEROLOGYOrdered By: Yoli Robret on 01-15-2023 Beta hCG Ql Negative (01/15/23 11:31 AM) Normal [facility] Man Sero URINALYSISOrdered By: Jacki santana on [...] PM) Normal Negative [facility] UA Auto SS Malin.plasma/Malin .RBC (Bld) [Mass ratio] 0-3 /HPF Normal [...] [facility] UA Auto SS Urobilinogen Qn (U) 0.4928240 {Lucila'U}/dL Normal 0.0 - 1.0 EU/dL [facility] UA Auto SS WBC Auto Ql (U) 1+ *ABN* (01/15/23 12:51 PM) Invalid Interpretation Code Negative [facility] UA Auto SS WBC LM.HPF (Urine sed) [#/Area] 0-5 /HPF Normal 0-5/HPF [facility] UA Auto SS BLOOD BANKOrdered By: Myrna Contreras on 12-05-2022 ABO/Rh Interp Negative Invalid Interpretation Code [facility] BB Subsection ABSC Gel Interp Negative (12/05/22 7:24 AM) Normal [facility] BB Subsection URINALYSISOrdered By: Kimberli Martin on [...] AM) Normal Negative [facility] UA Auto SS Malin.plasma/Malin .RBC (Bld) [Mass ratio] 0-3 /HPF Normal [...] [facility] UA Auto SS Urobilinogen Qn (U) 1.3923656 {Lucila'U}/dL Normal 0.0 - 1.0 EU/dL [facility] UA Auto SS WBC Auto Ql (U) Negative (12/05/22 10:05 AM) Normal Negative [facility] UA Auto SS WBC LM.HPF (Urine sed) [#/Area] 0-5 /HPF Normal 0-5/HPF [facility] UA Auto SS CHEMISTRYOrdered By: SYSTEM SYSTEM on 11-21-2022 Anion gap [Moles/Vol] 13 mmol/L Normal 6 - 16 mEq/L F C Remisol Chloride [Moles/Vol] 109 mmol/L Normal 101 - 1 11 mmol/L [facility] Remisol CO2 [Moles/Vol] 17 mmol/L Low 21 - 31 mmol/L FT Remisol Creatinine [Mass/Vol] 0.6 mg/dL Normal 0.5 - 1.3 mg/dL [facility] Remisol GFR/1.73 sq M.predicted among blacks MDRD (S/P/Bld) [Vol rate/Area] mL/min/1.73 m2 Normal >=59mL/min/1 .73 m2 [facility] Chem S GFR/1.73 sq M.predicted among non-blacks MDRD (S/P/Bld) [Vol rate/Area] mL/min/1.73 m2 Normal >=59mL/min/1 .73 m2 [facility] Chem S Potassium [Moles/Vol] 3.6 mmol/L Normal 3.5 - 5.3 mmol/L [facility] Remisol Sodium [Moles/Vol] 135 mmol/L Normal 135 - 145 mmol/L [facility] Remisol Urea nitrogen [Mass/Vol] 14 mg/dL Normal 5 - 21 mg/dL [facility] Remisol COAGULATIONOrdered By: Genaro Robert on 11-21-2022 aPTT Coag (PPP) [Time] 30.4 s Normal 25.1 - 36.5 second(s) [facility] Auto Coag INR Coag (PPP) [Relative time] 0.9 {INR} Invalid Interpretation Code [facility] Auto Coag PT Coag (PPP) [Time] 9.9 s Normal 9.4 - 1 2.5 second(s) [facility] Auto Coag HEMATOLOGYOrdered By: Shasta Eller on 11-21-2022 Erythrocyte distribution width (RBC) [Ratio] 14.0 % Normal 10.9 - 14.2 % [facility] HemeAutoSS Hematocrit (Bld) [Volume fraction] 38.2 % Normal 34.0 - 46.0 % [facility] HemeAutoSS Hemoglobin (Bld) [Mass/Vol] 12.3 g/dL Normal [...] CNOVon 11-20-2022 CNOV Office Visit (NEADFV ) RUTH CHOUSSICA ([id number]) 1990 F Date Time Provider Department 11/20/22 8:00 AM EILEEN ALVAREZ During your visit today, we recorded the following information about you: Pulse Blood pressure Weight Height 67/minute 137/81 85.7 kg 1.702 m Last Period 10/23/22 Eileen Alvarez MD 11/20/2022 10:33 AM Signed [facility] New Patient Evaluation Consulting Provider: SELF Individuals who were included in, or assisted with the encounter were: Shazia Alvarez MD Chief Complaint/Issues: Shazia Antonyjoel is a 31 year old R handed female w PMH HTN, depression, recently diagnosed idiopathic intracranial hypertension, EtOH drinking, H gastric bypass surgery w 100lb weight loss, 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 She has never seen an kiln car repairer. CSF protein 24, Glu 55, Pro 28, [...] due to congenital deformity, seen in the [facility] for: 1. Idiopathic [...] she agreed. She needs to follow with kiln car repairer every 6 months. In some patients with intracranial hypertension, there might be a concurrent transverse sinus stenosis and transverse sinus stenting may resolve the symptoms. I will do MRV. --HTN --H depression --Headache: there are a (more content not included)... Normal [facility] CBC AUTO DIFFon 10-30-2022 BASO # 0.0 103/ul Normal 0.0-0.1 [facility] Comment on above: Performed By: #### C JENNIE PATRICK LIPA #### [facility] [address] [address] [address] Manuel Sandhu Basophils/100 WBC (Bld) 0.5 % Normal 0.2-2.0 [facility] Comment on above: Performed By: #### C JENNIE PATRICK, LIPA #### [facility] [address] [place] [address] Dr. Manuel Sandhu EO # 0.1 103/ul Normal 0.0-0.7 [facility] Comment on above: Performed By: #### C CELINA JENNIE, LIPA #### [facility] [address] [place] [address] Dr. Manuel Sandhu Eosinophils/100 WBC (Bld) 1.6 % Normal 0.9-7.0 [facility] Comment on above: Performed By: #### C JENNIE PATRICK LIPA #### [facility] [address] [place] [address] Dr. Manuel Sandhu Erythrocyte distribution width (RBC) [Ratio] 13.8 % Normal 11.0-15.0 [facility] Comment on above: Performed By: #### C JENNIE PATRICK LIPA #### [facility] [address] [place] [address] Dr. Manuel Sandhu Hematocrit (Bld) [Volume fraction] 38.7 % Normal 36.0-48.0 [facility] Comment on above: Performed By: #### C JENNIE PATRICK LIPA #### [facility] [address] [place] [address] Dr. Manuel Sandhu Hemoglobin (Bld) [Mass/Vol] 12.9 g/dL Normal 12.0-16.0 [facility] Comment on above: Performed By: #### C JENNIE PATRICK LIPA #### [facility] [address] [place] [address] Dr. Manuel Sandhu IG # 0.03 10e3/ul Normal 0.00-0.03 [facility] Comment on above: Performed By: #### C JENNIE PATRICK LIPA #### [facility] [address] [place] [address] Dr. Manuel Sandhu IG % 0.4 % Normal 0.0-0.5 [facility] Comment on above: Performed By: #### C JENNIE PATRICK LIPA #### [facility] [address] [place] [address] Dr. Manuel Sandhu LYMPH # 2.1 103/ul Normal 1.2-3.8 [facility] Comment on above: Performed By: #### C JENNIE PATRICK LIPA #### [facility] [address] [place] [address] Dr. Manuel Sandhu Lymphocytes/100 WBC (Bld) 25.1 % Normal 20.5-60.0 [facility] Comment on above: Performed By: #### C JENNIE PATRICK LIPA #### [facility] [address] [place] [address] Dr. Manuel Sandhu MANUAL DIFF REQ NO Normal [facility] Comment on above: Performed By: #### C JENNIE PATRICK LIPA #### [facility] [address] [place] [address] Dr. Manuel Sandhu MCH (RBC) [Entitic mass] 32.0 pg Normal 26.7-34.0 [facility] Comment on above: Performed By: #### C JENNIE PATRICK LIPA #### [facility] [address] [place] [address] Dr. Manuel Sandhu MCHC (RBC) [Mass/Vol] 33.3 g/dL Normal 29.9-35.2 [facility] Comment on above: Performed By: #### C JENNIE PATRICK LIPA #### [facility] [address] [place] [address] Dr. Manuel Sandhu MCV (RBC) [Entitic vol] 96.0 fL Normal 81.0-99.0 [facility] Comment on above: Performed By: #### C JENNIE PATRICK LIPA #### [facility] [address] [place] [address] Dr. Manuel Sandhu MONO # 0.5 103/ul Normal 0.3-0.8 [facility] Comment on above: Performed By: #### C JENNIE PATRICK LIPA #### [facility] [address] [place] [address] Dr. Manuel Sandhu Monocytes/100 WBC (Bld) 5.7 % Normal 1.7-12.0 [facility] Comment on above: Performed By: #### C JENNIE PATRICK LIPA #### [facility] [address] [address] [address] Manuel Sandhu NEUT # 5.6 103/ul Normal 1.4-6.5 [facility] Comment on above: Performed By: #### C MP, JENNIE, LIPA #### [facility] [address] [address] [address] Manuel Sandhu Neutrophils/100 WBC (Bld) 66.7 % Normal 43.0-75.0 [facility] Comment on above: Performed By: #### C MP, JENNIE, LIPA #### [facility] [address] [place] [address] Dr. Manuel Sandhu Platelet mean volume (Bld) [Entitic vol] 10.9 fL Normal 9.5-13.5 [facility] Comment on above: Performed By: #### C MP, JENNIE, LIPA #### [facility] [address] [place] [address] Dr. Manuel Sandhu PLT 310 103/ul Normal 150-450 [facility] Comment on above: Performed By: #### C MP, JENNIE, LIPA #### [facility] [address] [place] [address] Dr. Manuel Sandhu RBC 4.03 106/ul Critically low 4.20-5.40 [facility] Comment on above: Performed By: #### C MP, JENNIE, LIPA #### [facility] [address] [address] [address] Manuel Sandhu WBC 8.4 103/ul Normal 4.0-11.0 [facility] Comment on above: Performed By: #### C MP, JENNIE, LIPA #### [facility] [address] [place] [address] Dr. Manuel Sandhu ER URINE PROFILEon 3 Bilirubin Ql (U) Negative Normal NEGATIVE [facility] Comment on above: Performed By: #### U MICRO, ERUR #### [facility] [address] [place] [address] Dr. Manuel Sandhu Clarity (U) CLEAR Normal CLEAR [facility] Comment on above: Performed By: #### U MICRO, ERUR #### [facility] [address] [address] [address] Manuel Sandhu Color (U) LT. YELLOW Normal YELLOW [facility] Comment on above: Performed By: #### U MICRO, ERUR #### [facility] [address] [address] [address] Manuel MCDONALDAHD A micrscopic examination will be performed if indicated. Normal [facility] Comment on above: Performed By: #### U MICRO, ERUR #### [facility] [address] [address] [address] Manuel Sandhu Glucose Ql (U) Negative Normal NEGATIVE [facility] Comment on above: Performed By: #### U MICRO, ERUR #### [facility] [address] [address] [address] Manuel Sandhu Hemoglobin Ql (U) LARGE Abnormal NEGATIVE [facility] Comment on above: Performed By: #### U MICRO, ERUR #### [facility] [address] [address] [address] Manuel Sandhu Ketones Ql (U) Negative Normal NEGATIVE [facility] Comment on above: Performed By: #### U MICRO, ERUR #### [facility] [address] [address] [address] Manuel Sandhu LEUKOCYTES TRACE Abnormal NEGATIVE [facility] Comment on above: Performed By: #### U MICRO, ERUR #### [facility] [address] [address] [address] Manuel Sandhu Nitrite Ql (U) Negative Normal NEGATIVE [facility] Comment on above: Performed By: #### U MICRO, ERUR #### [facility] [address] [address] [address] Manuel Sandhu pH (U) 6.5 [pH] Normal 5-9 [facility] Comment on above: Performed By: #### U MICRO, ERUR #### [facility] [address] [address] [address] Manuel Sandhu SPEC GRAVITY <=1.005 Abnormal 1.005-<=1.02 5 [facility] Comment on above: Performed By: #### U MICRO, ERUR #### [facility] [address] [place] [address] Dr. Manuel Sandhu UA PROTEIN Negative Normal NEGATIVE/ TRACE [facility] Comment on above: Performed By: #### U MICRO, ERUR #### [facility] [address] [place] [address] Dr. Manuel Sandhu UR MICRO IND INDICATED Normal [facility] Comment on above: Performed By: #### U MICRO, ERUR #### [facility] [address] [place] [address] Dr. Manuel Sandhu Urobilinogen Qn (U) 0.2 {Lucila'U}/dL Normal 0.2 - 1. 0 [facility] Comment on above: Performed By: #### U MICRO, ERUR #### [facility] [address] [place] [address] Dr. Manuel Sandhu PROF CHEM 8 (BAS METB)on Anion gap [Moles/Vol] 11.7 mmol/L Normal [facility] Comment on above: Performed By: #### C JENNIE PATRICK, LIPA #### [facility] [address] [place] [address] Dr. Manuel Sandhu Calcium [Mass/Vol] 9.1 mg/dL Normal 8.5-10.1 [facility] Comment on above: Performed By: #### C MP JENNIE, LIPA #### [facility] [address] [place] [address] Dr. Manuel Sandhu Chloride [Moles/Vol] 105 mmol/L Normal 98-107 [facility] Comment on above: Performed By: #### C MP JENNIE, LIPA #### [facility] [address] [place] [address] Dr. Manuel Sandhu CO2 [Moles/Vol] 26.8 mmol/L Normal 21.0-32.0 [facility] Comment on above: Performed By: #### C MP JENNIE, LIPA #### [facility] [address] [place] [address] Dr. Manuel Sandhu Creatinine [Mass/Vol] 0.62 mg/dL Normal 0.55-1.02 [facility] Comment on above: Performed By: #### C JENNIE PATRICK LIPA #### [facility] [address] [address] [address] Manuel Sandhu EGFR-AF MONEGASQUE >60 Normal >=60 [facility] Comment on above: Performed By: #### C JENNIE PATRICK LIPA #### [facility] [address] [address] [address] Manuel Sandhu EGFR-NON AF MONEGASQUE >60 Normal >=60 [facility] Comment on above: Performed By: #### C JENNIE PATRICK LIPA #### [facility] [address] [address] [address] Manuel Sandhu Glucose [Mass/Vol] 92 mg/dL Normal 74-106 [facility] Comment on above: Performed By: #### C JENNIE PATRICK LIPA #### [facility] [address] [address] [address] Manuel Sandhu Potassium [Moles/Vol] 3.5 mmol/L Normal 3.5-5.1 [facility] Comment on above: Performed By: #### C JENNIE PATRICK LIPA #### [facility] [address] [place] [address] Dr. Manuel Sandhu Sodium [Moles/Vol] 140 mmol/L Normal 136-[address] [facility] Comment on above: Performed By: #### C JENNIE PATRICK LIPA #### [facility] [address] [address] [address] Manuel Sandhu Urea nitrogen [Mass/Vol] 8.0 mg/dL Normal 7.0-18.0 [facility] Comment on above: Performed By: #### C JENNIE PATRICK LIPA #### [facility] [address] [address] [address] Manuel Sandhu Urea nitrogen/Creatinine [Mass ratio] 12.9 mg/mg Normal [facility] Comment on above: Performed By: #### C JENNIE PATRICK LIPA #### [facility] [address] [address] [address] Manuel Sandhu URINE MICROSCOPIC ONLYon BACTERIA NONE SEEN Normal NONE SEEN [facility] Comment on above: Performed By: #### U MICRO, ERUR #### [facility] [address] [place] [address] Dr. Manuel Sandhu Bacteria identified Cx Nom (U) NOT INDICATED Normal [facility] Comment on above: Performed By: #### U MICRO, ERUR #### [facility] [address] [place] [address] Dr. Manuel Sandhu CAST NONE SEEN Normal NONE SEEN [facility] Comment on above: Performed By: #### U MICRO, ERUR #### [facility] [address] [place] [address] Dr. Manuel Sandhu Crystals LM Nom (Urine sed) NONE SEEN Normal NONE SEEN [facility] Comment on above: Performed By: #### U MICRO, ERUR #### [facility] [address] [address] [address] Manuel Sandhu Epithelial cells LM Ql (Urine sed) FEW Abnormal NONE SEEN /RARE [facility] Comment on above: Performed By: #### U MICRO, ERUR #### [facility] [address] [place] [address] Dr. Manuel Sandhu MUCOUS TRACE Abnormal NONE SEEN [facility] Comment on above: Performed By: #### U MICRO, ERUR #### [facility] [address] [place] [address] Dr. Manuel Sandhu RBC 5-10 Abnormal 0-2 [facility] Comment on above: Performed By: #### U MICRO, ERUR #### [facility] [address] [place] [address] Dr. Manuel Sandhu WBC 2-5 Abnormal NONE SEEN [facility] Comment on above: Performed By: #### U MICRO, ERUR #### [facility] [address] [place] [address] Dr. Manuel Sandhu No Panel InformationOrdered By: Dorita Niño on 08-19-2022 CSF Glucose 55 mg/dL 40-70 [facility] CSF Total Protein 24 mg/dL 15-45 [facility] CBC AUTO DIFFon 08-16-2022 BASO # 0.1 103/ul Normal 0.0-0.1 [facility] Comment on above: Performed By: #### U MICRO, ERUR #### [facility] [address] [address] [address] Manuel Sandhu Basophils/100 WBC (Bld) 0.4 % Normal 0.2-2.0 [facility] Comment on above: Performed By: #### U MICRO, ERUR #### [facility] [address] [address] [address] Manuel Sandhu EO # 0.2 103/ul Normal 0.0-0.7 [facility] Comment on above: Performed By: #### U MICRO, ERUR #### [facility] [address] [address] [address] Manuel Sandhu Eosinophils/100 WBC (Bld) 1.8 % Normal 0.9-7.0 [facility] Comment on above: Performed By: #### U MICRO, ERUR #### [facility] [address] [address] [address] Manuel Sandhu Erythrocyte distribution width (RBC) [Ratio] 13.6 % Normal 11.0-15.0 [facility] Comment on above: Performed By: #### U MICRO, ERUR #### [facility] [address] [place] [address] Dr. Manuel Sandhu Hematocrit (Bld) [Volume fraction] 35.8 % Critically low 36.0-48.0 [facility] Comment on above: Performed By: #### U MICRO, ERUR #### [facility] [address] [address] [address] Manuel Sandhu Hemoglobin (Bld) [Mass/Vol] 12.2 g/dL Normal 12.0-16.0 [facility] Comment on above: Performed By: #### U MICRO, ERUR #### [facility] [address] [address] [address] Manuel Sandhu IG # 0.05 10e3/ul Critically high 0.00-0.03 [facility] Comment on above: Performed By: #### U MICRO, ERUR #### [facility] [address] [address] [address] Manuel Sandhu IG % 0.4 % Normal 0.0-0.5 [facility] Comment on above: Performed By: #### U MICRO, ERUR #### [facility] [address] [address] [address] Manuel Sandhu LYMPH # 2.0 103/ul Normal 1.2-3.8 [facility] Comment on above: Performed By: #### U MICRO, ERUR #### [facility] [address] [address] [address] Manuel Sandhu Lymphocytes/100 WBC (Bld) 18.1 % Critically low 20.5-60.0 [facility] Comment on above: Performed By: #### U MICRO, ERUR #### [facility] [address] [place] [address] Dr. Manuel Sandhu MANUAL DIFF REQ NO Normal [facility] Comment on above: Performed By: #### U MICRO, ERUR #### [facility] [address] [address] [address] Manuel Sandhu MCH (RBC) [Entitic mass] 32.0 pg Normal 26.7-34.0 [facility] Comment on above: Performed By: #### U MICRO, ERUR #### [facility] [address] [address] [address] Manuel Sandhu MCHC (RBC) [Mass/Vol] 34.1 g/dL Normal 29.9-35.2 [facility] Comment on above: Performed By: #### U MICRO, ERUR #### [facility] [address] [address] [address] Manuel Sandhu MCV (RBC) [Entitic vol] 94.0 fL Normal 81.0-99.0 [facility] Comment on above: Performed By: #### U MICRO, ERUR #### [facility] [address] [place] [address] Dr. Manuel Sandhu MONO # 0.7 103/ul Normal 0.3-0.8 [facility] Comment on above: Performed By: #### U MICRO, ERUR #### [facility] [address] [place] [address] Dr. Manuel Sandhu Monocytes/100 WBC (Bld) 5.8 % Normal 1.7-12.0 [facility] Comment on above: Performed By: #### U MICRO, ERUR #### [facility] [address] [place] [address] Dr. Manuel Sandhu NEUT # 8.2 103/ul Critically high 1.4-6.5 [facility] Comment on above: Performed By: #### U MICRO, ERUR #### [facility] [address] [place] [address] Dr. Manuel Sandhu Neutrophils/100 WBC (Bld) 73.5 % Normal 43.0-75.0 [facility] Comment on above: Performed By: #### U MICRO, ERUR #### [facility] [address] [place] [address] Dr. Manuel Sandhu Platelet mean volume (Bld) [Entitic vol] 11.3 fL Normal 9.5-13.5 [facility] Comment on above: Performed By: #### U MICRO, ERUR #### [facility] [address] [place] [address] Dr. Manuel Sandhu PLT 284 103/ul Normal 150-450 [facility] Comment on above: Performed By: #### U MICRO, ERUR #### [facility] [address] [place] [address] Dr. Manuel Sandhu RBC 3.81 106/ul Critically low 4.20-5.40 [facility] Comment on above: Performed By: #### U MICRO, ERUR #### [facility] [address] [place] [address] Dr. Manuel Sandhu WBC 11.2 103/ul Critically high 4.0-11.0 [facility] Comment on above: Performed By: #### U MICRO, ERUR #### [facility] [address] [place] [address] Dr. Manuel Sandhu D-DIMERon 08-16-2022 D-DIMER 0.34 mg/L FEU Normal <=0.59 [facility] Comment on above: Performed By: #### U MICRO, ERUR #### [facility] [address] [place] [address] Dr. Manuel Sandhu D-DIMER COMMENTS SEE BELOW Normal [facility] Comment on above: Result Comment: Incr eases [...] Performed By: #### U MICRO, ERUR #### [facility] [address] [place] [address] Dr. Manuel Sandhu PROF CHEM 8 (BAS METB)on Anion gap [Moles/Vol] 10.6 mmol/L Normal [facility] Comment on above: Performed By: #### I NFLUAB #### [facility] [address] [place] [address] Dr. Manuel Sandhu Calcium [Mass/Vol] 9.2 mg/dL Normal 8.5-10.1 [facility] Comment on above: Performed By: #### I NFLUAB #### [facility] [address] [place] [address] Dr. Manuel Sandhu Chloride [Moles/Vol] 103 mmol/L Normal 98-107 [facility] Comment on above: Performed By: #### I NFLUAB #### [facility] [address] [place] [address] Dr. Manuel Sandhu CO2 [Moles/Vol] 28.4 mmol/L Normal 21.0-32.0 [facility] Comment on above: Performed By: #### I NFLUAB #### [facility] [address] [place] [address] Dr. Manuel Sandhu Creatinine [Mass/Vol] 0.61 mg/dL Normal 0.55-1.02 [facility] Comment on above: Performed By: #### I NFLUAB #### [facility] [address] [place] [address] Dr. Manuel Sandhu EGFR-AF MONEGASQUE >60 Normal >=60 [facility] Comment on above: Performed By: #### I NFLUAB #### [facility] [address] [address] [address] Manuel Sandhu EGFR-NON AF MONEGASQUE >60 Normal >=60 [facility] Comment on above: Performed By: #### I NFLUAB #### [facility] [address] [place] [address] Dr. Manuel Sandhu Glucose [Mass/Vol] 90 mg/dL Normal 74-106 [facility] Comment on above: Performed By: #### I NFLUAB #### [facility] [address] [place] [address] Dr. Manuel Sandhu Potassium [Moles/Vol] 4.0 mmol/L Normal 3.5-5.1 [facility] Comment on above: Performed By: #### I NFLUAB #### [facility] [address] [place] [address] Dr. Manuel Sandhu Sodium [Moles/Vol] 138 mmol/L Normal 136-[address] [facility] Comment on above: Performed By: #### I NFLUAB #### [facility] [address] [place] [address] Dr. Manuel Sandhu Urea nitrogen [Mass/Vol] 16.0 mg/dL Normal 7.0-18.0 [facility] Comment on above: Performed By: #### I NFLUAB #### [facility] [address] [place] [address] Dr. Manuel Sandhu Urea nitrogen/Creatinine [Mass ratio] 26.2 mg/mg Normal [facility] Comment on above: Performed By: #### I NFLUAB #### [facility] [address] [place] [address] Dr. Manuel Sandhu XR CHEST 1 Von [...] by: YOLI FRANKS Date: 2022-08-16 14:16 Normal [facility] Albumin [Mass/volume] in Ser um or PlasmaOrdered By: Sangeetha Peña on 08-12-2022 Albumin [Mass/Vol] 3.2 g/dL 3.2-5.5 [facility] Basophils Auto (Bld) [#/Vol] Ordered By: Sangeetha Peña on 08-12-2022 Basophils (Bld) [#/Vol] 0.1 10*3/uL 0.0-0.2 [facility] Basophils/100 WBC Auto (Bld) Ordered By: Sangeetha Peña on 08-12-2022 Basophils/100 WBC (Bld) 0.7 % . [facility] C reactive protein [Mass/vol ume] in Serum or PlasmaOrdered By: Sangeetha Peña on 08-12-2022 CRP [Mass/Vol] 0.5 mg/dL 0.0-1.0 [facility] Creatinine and Glomerular fi ltration rate.predicted panel (S/P/Bld)Ordered By: Sangeetha Peña on 08-12-2022 Creatinine [Mass/Vol] 0.65 mg/dL 0.44-1.03 [facility] Eosinophils Auto (Bld) [#/Vo l]Ordered By: Sangeetha Peña on 08-12-2022 Eosinophils (Bld) [#/Vol] 0.4 10*3/uL 0.0-0.45 [facility] Eosinophils/100 WBC Auto (Bl d)Ordered By: Sangeetha Peña on 08-12-2022 Eosinophils/100 WBC (Bld) 5.2 % . [facility] Erythrocyte distribution wid th Auto (RBC) [Ratio]Ordered By: Sangeetha Peña on 08-12-2022 Erythrocyte distribution width (RBC) [Ratio] 14.4 % 11.9-15.3 [facility] Erythrocyte sedimentation ra te by Photometric methodOrdered By: Dorita Niño on 08-12-2022 ESR Photometric method (Bld) [Velocity] 3 mm/hr 0-19 [facility] Estimated glomerular filtrat ion rate (GFR) non- AmericanOrdered By: Sangeetha Peña on 08-12-2022 GFR/1.73 sq M.predicted among non-blacks MDRD (S/P/Bld) [Vol rate/Area] > 60 mL/Min [facility] Folate [Mass/volume] in Seru m or PlasmaOrdered By: Lizzeth Malave on 08-12-2022 Folate [Mass/Vol] 15.3 ng/mL >5.9 [facility] Comment on above: Folate reference ran ge: >5.9 ng/mlThe WHO technical consultation on folate and vitamin [id number] has determined that folate concentrations lessthan 4 ng/ml are considered deficient. Globulin Calc (S) [Mass/Vol] Ordered By: Sangeetha Peña on 08-12-2022 Globulin (S) [Mass/Vol] 2.4 g/dL [facility] HCG ( test) IA.rapi d Ql (U)Ordered By: Lizzeth Malave on 08-12-2022 HCG ( test) Ql (U) Negative [facility] Hematocrit Auto (Bld) [Volum e fraction]Ordered By: Sangeetha Peña on 08-12-2022 Hematocrit (Bld) [Volume fraction] 34.6 % 34.0-46.4 [facility] Hemoglobin [Mass/volume] in BloodOrdered By: Sangeetha Peña on 08-12-2022 Hemoglobin (Bld) [Mass/Vol] 11.3 g/dL 11.8-15.4 [facility] - Chemistry and C hemistry - challengeOrdered By: Lizzeth Malave on 08-12-2022 Cobalamin (Vitamin B12) [Mass/Vol] 610 pg/mL 180-914 [facility] Magnesium [Mass/Vol] 1.9 mg/dL 1.6-2.6 [facility] - Hematology and Cell countsOrdered By: Sangeetha Peña on 08-12-2022 Nucleated RBC/100 WBC (Bld) [Ratio] 0.1 % 0-0.5 [facility] Leukocytes [#/volume] in Blo od by Automated countOrdered By: Sangeetha Peña on 08-12-2022 WBC (Bld) [#/Vol] 8.3 10*3/uL 4.5-11.0 [facility] Lymphocytes Auto (Bld) [#/Vo l]Ordered By: Sangeetha Peña on 08-12-2022 Lymphocytes (Bld) [#/Vol] 2.3 10*3/uL 1.00-4.8 [facility] Lymphocytes/100 WBC Auto (Bl d)Ordered By: Sangeetha Peña on 08-12-2022 Lymphocytes/100 WBC (Bld) 27.4 % . [facility] MCH Auto (RBC) [Entitic mass ]Ordered By: Sangeetha Peña on 08-12-2022 MCH (RBC) [Entitic mass] 32.0 pg 24.7-34.3 [facility] MCHC Auto (RBC) [Mass/Vol]Or dered By: Sangeetha Peña on 08-12-2022 MCHC (RBC) [Mass/Vol] 32.8 g/dL 32.0-35.0 [facility] MCV Auto (RBC) [Entitic vol] Ordered By: Sangeetha Peña on 08-12-2022 MCV (RBC) [Entitic vol] 97.7 fL 80-100 [facility] Monocytes Auto (Bld) [#/Vol] Ordered By: Sangeetha Peña on 08-12-2022 Monocytes (Bld) [#/Vol] 0.7 10*3/uL 0.0-0.8 [facility] Monocytes/100 WBC Auto (Bld) Ordered By: Sangeetha Peña on 08-12-2022 Monocytes/100 WBC (Bld) 8.7 % . [facility] Neutrophils Auto (Bld) [#/Vo l]Ordered By: Sangeetha Peña on 08-12-2022 Neutrophils (Bld) [#/Vol] 4.8 10*3/uL 1.8-7.7 [facility] Neutrophils/100 WBC Auto (Bl d)Ordered By: Sangeetha Peña on 08-12-2022 Neutrophils/100 WBC (Bld) 58.0 % . [facility] No Panel InformationOrdered By: Sangeetha Peña on 08-12-2022 Estimated GFR () > 60 mL/Min [facility] Comment on above: GFR estimated refere nce range: According to KDOQI guidelines, <60 ml/min/1.73m2 is sufficient to diagnose a patient with chronic kidney disease. Pharmacy Creatinine Clearance (Chem 140.31 [facility] Platelet mean volume Auto (B ld) [Entitic vol]Ordered By: Sangeetha Peña on 08-12-2022 Platelet mean volume (Bld) [Entitic vol] 10.2 fL 6.3-10.7 [facility] Platelets Auto (Bld) [#/Vol] Ordered By: Sangeetha Peña on 08-12-2022 Platelets (Bld) [#/Vol] 263 10*3/uL 150-450 [facility] Protein [Mass/volume] in Ser um or PlasmaOrdered By: Sangeetha Peña on 08-12-2022 Protein [Mass/Vol] 5.6 g/dL 6.1-7.9 [facility] RBC Auto (Bld) [#/Vol]Ordere d By: Sangeetha Peña on 08-12-2022 RBC (Bld) [#/Vol] 3.54 10*6/uL 3.60-5.00 [facility] Serum or plasma alanine alberto otransferase measurement without P-5'-P (enzymatic activiOrdered By: Sangeetha Peña on 08-12-2022 ALT No additional P-5'-P [Catalytic activity/Vol] 22 U/L 10-60 [facility] Serum or plasma albumin/glob ulin mass ratioOrdered By: Sangeetha Peña on 08-12-2022 Albumin/Globulin [Mass ratio] 1.3 {ratio} [facility] Serum or plasma alkaline marquez sphatase measurement (enzymatic activity/volume)Ordered By: Sangeetha Peña on 08-12-2022 ALP [Catalytic activity/Vol] 54 U/L 32-92 [facility] Serum or plasma anion gap de terminationOrdered By: Sangeetha Peña on 08-12-2022 Anion gap [Moles/Vol] 10.6 mmol/L 6.0-15.0 [facility] Serum or plasma aspartate am inotransferase measurement (enzymatic activity/volume)Ordered By: Sangeetha Peña on 08-12-2022 AST [Catalytic activity/Vol] 20 U/L 10-42 [facility] Serum or plasma calcium audie urement (mass/volume)Ordered By: Sangeetha Peña on 08-12-2022 Calcium [Mass/Vol] 8.8 mg/dL 8.2-10.2 [facility] Serum or plasma chloride nimisha surement (moles/volume)Ordered By: Sangeetha Peña on 08-12-2022 Chloride [Moles/Vol] 105 mmol/L 95-114 [facility] Serum or plasma glucose audie urement (mass/volume)Ordered By: Sangeetha Peña on 08-12-2022 Glucose [Mass/Vol] 85 mg/dL 70-100 [facility] Comment on above: ADA recommended refe rence rangeRandom Glucose Reference Range is dependent on time and content of last meal. Glucose of more than 200 mg/dL in a nonstressed, ambulatory subject supports the diagnosis of Diabetes Mellitus. Serum or plasma potassium me asurement (moles/volume)Ordered By: Sangeetha Peña on 08-12-2022 Potassium [Moles/Vol] 4.2 mmol/L 3.5-5.1 [facility] Serum or plasma sodium measu rement (moles/volume)Ordered By: Sangeetha Peña on 08-12-2022 Sodium [Moles/Vol] 140 mmol/L 136-146 [facility] Serum or plasma total biliru bin measurement (mass/volume)Ordered By: Sangeetha Peña on 08-12-2022 Bilirubin [Mass/Vol] 0.5 mg/dL 0.3-1.2 [facility] Serum or plasma total carbon dioxide measurement (moles/volume)Ordered By: Sangeetha Peña on 08-12-2022 CO2 [Moles/Vol] 28.6 mmol/L 22.0-30.0 [facility] Serum or plasma urea nitroge n measurement (mass/volume)Ordered By: Sangeetha Peña on 08-12-2022 Urea nitrogen [Mass/Vol] 7 mg/dL 9- [facility] TSH DL <= 0.005 mIU/L QnOrde red By: Lizzeth Malave on 08-12-2022 TSH Qn 1.79 m[IU]/L 0.45-5.33 [facility] Troponin I.cardiac [Mass/vol ume] in Serum or Plasma by High sensitivity methodOrdered By: Lizzeth Malave on 08-12-2022 Troponin I.cardiac High sensitivity method [Mass/Vol] < 3 pg/mL 0-15 [facility] CBC AUTO DIFFon 08-11-2022 BASO # 0.1 103/ul Normal 0.0-0.1 [facility] Comment on above: Performed By: #### C JENNIE PATRICK LIPA #### [facility] [address] [address] [address] Manuel Sandhu Basophils/100 WBC (Bld) 0.5 % Normal 0.2-2.0 [facility] Comment on above: Performed By: #### C JENNIE PATRICK LIPA #### [facility] [address] [address] [address] Manuel Sandhu EO # 0.4 103/ul Normal 0.0-0.7 [facility] Comment on above: Performed By: #### C JENNIE PATRICK LIPA #### [facility] [address] [address] [address] Manuel Sandhu Eosinophils/100 WBC (Bld) 2.4 % Normal 0.9-7.0 [facility] Comment on above: Performed By: #### C CELINA JENNIE LIPA #### [facility] [address] [address] [address] Manuel Sandhu Erythrocyte distribution width (RBC) [Ratio] 14.1 % Normal 11.0-15.0 [facility] Comment on above: Performed By: #### C MP JENNIE, LIPA #### [facility] [address] [place] [address] Dr. Manuel Sandhu Hematocrit (Bld) [Volume fraction] 39.4 % Normal 36.0-48.0 [facility] Comment on above: Performed By: #### C MP JENNIE, LIPA #### [facility] [address] [place] [address] Dr. Manuel Sandhu Hemoglobin (Bld) [Mass/Vol] 13.3 g/dL Normal 12.0-16.0 [facility] Comment on above: Performed By: #### C MP JENNIE, LIPA #### [facility] [address] [place] [address] Dr. Manuel Sandhu IG # 0.07 10e3/ul Critically high 0.00-0.03 [facility] Comment on above: Performed By: #### C CELINA JENNIE, LIPA #### [facility] [address] [place] [address] Dr. Manuel Sandhu IG % 0.5 % Normal 0.0-0.5 [facility] Comment on above: Performed By: #### C CELINA JENNIE, LIPA #### [facility] [address] [place] [address] Dr. Manuel Sandhu LYMPH # 3.6 103/ul Normal 1.2-3.8 [facility] Comment on above: Performed By: #### C CLEINA JENNIE, LIPA #### [facility] [address] [place] [address] Dr. Manuel Sandhu Lymphocytes/100 WBC (Bld) 23.5 % Normal 20.5-60.0 [facility] Comment on above: Performed By: #### C JENNIE PATRICK, LIPA #### [facility] [address] [place] [address] Dr. Manuel Sandhu MANUAL DIFF REQ NO Normal [facility] Comment on above: Performed By: #### C MP JENNIE, LIPA #### [facility] [address] [place] [address] Dr. Manuel Sandhu MCH (RBC) [Entitic mass] 32.1 pg Normal 26.7-34.0 [facility] Comment on above: Performed By: #### C JENNIE PATRICK, LIPA #### [facility] [address] [place] [address] Dr. Manuel Sandhu MCHC (RBC) [Mass/Vol] 33.8 g/dL Normal 29.9-35.2 [facility] Comment on above: Performed By: #### C CELINA JENNIE, LIPA #### [facility] [address] [place] [address] Dr. Manuel Sandhu MCV (RBC) [Entitic vol] 95.2 fL Normal 81.0-99.0 [facility] Comment on above: Performed By: #### C CELINA JENNIE, LIPA #### [facility] [address] [place] [address] Dr. Manuel Sandhu MONO # 0.9 103/ul Critically high 0.3-0.8 [facility] Comment on above: Performed By: #### C CELINA JENNIE, LIPA #### [facility] [address] [place] [address] Dr. Manuel Sandhu Monocytes/100 WBC (Bld) 5.8 % Normal 1.7-12.0 [facility] Comment on above: Performed By: #### C CELINA JENNIE, LIPA #### [facility] [address] [place] [address] Dr. Manuel Sandhu NEUT # 10.3 103/ul Critically high 1.4-6.5 [facility] Comment on above: Performed By: #### C MP JENNIE, LIPA #### [facility] [address] [place] [address] Dr. Manuel Sandhu Neutrophils/100 WBC (Bld) 67.3 % Normal 43.0-75.0 [facility] Comment on above: Performed By: #### C MP JENNIE, LIPA #### [facility] [address] [place] [address] Dr. Manuel Sandhu Platelet mean volume (Bld) [Entitic vol] 11.4 fL Normal 9.5-13.5 [facility] Comment on above: Performed By: #### C MP, JENNIE, LIPA #### [facility] [address] [address] [address] Manuel Sandhu PLT 364 103/ul Normal 150-450 [facility] Comment on above: Performed By: #### C MP, JENNIE, LIPA #### [facility] [address] [place], [place] [address] Dr. Manuel Sandhu RBC 4.14 106/ul Critically low 4.20-5.40 [facility] Comment on above: Performed By: #### C CELINA JENNIE, LIPA #### [facility] [address] [address] [address] Manuel Sandhu WBC 15.3 103/ul Critically high 4.0-11.0 [facility] Comment on above: Performed By: #### C CELINA JENNIE, LIPA #### [facility] [address] [address] [address] STROKE HEAD WOon [...] YOLI MCKEON Date: 2022-08-11 15:21 Normal [facility] ER URINE PROFILEon 2 Bilirubin Ql (U) Negative Normal NEGATIVE [facility] Comment on above: Performed By: #### U MICRO, ERUR #### [facility] [address] [address] [address] Manuel Sandhu Clarity (U) CLEAR Normal CLEAR [facility] Comment on above: Performed By: #### U MICRO, ERUR #### [facility] [address] [address] [address] Manuel Sandhu Color (U) LT. YELLOW Normal YELLOW [facility] Comment on above: Performed By: #### U MICRO, ERUR #### [facility] [address] [address] [address] Manuel CUNHA A micrscopic examination will be performed if indicated. Normal [facility] Comment on above: Performed By: #### U MICRO, ERUR #### [facility] [address] [address] [address] Manuel Sandhu Glucose Ql (U) Negative Normal NEGATIVE [facility] Comment on above: Performed By: #### U MICRO, ERUR #### [facility] [address] [address] [address] Manuel Sandhu Hemoglobin Ql (U) Negative Normal NEGATIVE [facility] Comment on above: Performed By: #### U MICRO, ERUR #### [facility] [address] [address] [address] Manuel Sandhu Ketones Ql (U) Negative Normal NEGATIVE [facility] Comment on above: Performed By: #### U MICRO, ERUR #### [facility] [address] [address] [address] Manuel Sandhu LEUKOCYTES Negative Normal NEGATIVE [facility] Comment on above: Performed By: #### U MICRO, ERUR #### [facility] [address] [address] [address] Manuel Sandhu Nitrite Ql (U) Negative Normal NEGATIVE [facility] Comment on above: Performed By: #### U MICRO, ERUR #### [facility] [address] [address] [address] Manuel Sandhu pH (U) 7.0 [pH] Normal 5-9 [facility] Comment on above: Performed By: #### U MICRO, ERUR #### [facility] [address] [place] [address] Dr. Manuel Sandhu SPEC GRAVITY <=1.005 Abnormal 1.005-<=1.02 5 [facility] Comment on above: Performed By: #### U MICRO, ERUR #### [facility] [address] [place] [address] Dr. Manuel Sandhu UA PROTEIN Negative Normal NEGATIVE/ TRACE [facility] Comment on above: Performed By: #### U MICRO, ERUR #### [facility] [address] [place] [address] Dr. Manuel Sandhu UR MICRO IND NOT INDICATED Normal [facility] Comment on above: Performed By: #### U MICRO, ERUR #### [facility] [address] [place] [address] Dr. Manuel Sandhu Urobilinogen Qn (U) 0.2 {Lucila'U}/dL Normal 0.2 - 1. 0 [facility] Comment on above: Performed By: #### U MICRO, ERUR #### [facility] [address] [place] [address] Dr. Manuel Sandhu LACTATE/LACTIC ACIDon 2021 Lactate [Moles/Vol] 1.5 mmol/L Normal 0.4-1.9 [facility] Comment on above: Performed By: #### I NFLUAB #### [facility] [address] [place] [address] Dr. Manuel Sandhu LIPASEon 08-11-2022 Lipase [Catalytic activity/Vol] 84.0 U/L Normal 73.0-393.0 [facility] Comment on above: Performed By: #### C MP, JENNIE, LIPA #### [facility] [address] [place] [address] Dr. Manuel Sandhu URon 08-11-2022 , QUAL Negative Normal NEGATIVE [facility] Comment on above: Performed By: #### U MICRO, ERUR #### [facility] [address] [place] [address] Dr. Manuel Sandhu PROF 14(COMP METB)on 022 Albumin [Mass/Vol] 4.3 g/dL Normal 3.4-5.0 [facility] Comment on above: Performed By: #### C MP, JENNIE, LIPA #### [facility] [address] [address] [address] Manuel Sandhu Albumin/Globulin [Mass ratio] 1.1 {ratio} Normal [facility] Comment on above: Performed By: #### C MP, JENNIE, LIPA #### [facility] [address] [place] [address] Dr. Manuel Sandhu ALP [Catalytic activity/Vol] 87 U/L Normal 46-116 [facility] Comment on above: Performed By: #### C MP, JENNIE, LIPA #### [facility] [address] [place] [address] Dr. Manuel Sandhu ALT [Catalytic activity/Vol] 32 U/L Normal 14-59 [facility] Comment on above: Performed By: #### C MP, JENNIE, LIPA #### [facility] [address] [place] [address] Dr. Manuel Sandhu Anion gap [Moles/Vol] 12.7 mmol/L Normal [facility] Comment on above: Performed By: #### C MP, JENNIE, LIPA #### [facility] [address] [place] [address] Dr. Manuel Sandhu AST [Catalytic activity/Vol] 24 U/L Normal 15-37 [facility] Comment on above: Performed By: #### C MP, JENNIE, LIPA #### [facility] [address] [place] [address] Dr. Manuel Sandhu Bilirubin [Mass/Vol] 0.3 mg/dL Normal 0.2-1.0 [facility] Comment on above: Performed By: #### C MP, JENNIE, LIPA #### [facility] [address] [place] [address] Dr. Manuel Sandhu Calcium [Mass/Vol] 9.4 mg/dL Normal 8.5-10.1 [facility] Comment on above: Performed By: #### C JENNIE PATRICK LIPA #### [facility] [address] [place] [address] Dr. Manuel Sandhu Chloride [Moles/Vol] 100 mmol/L Normal 98-107 [facility] Comment on above: Performed By: #### C JENNIE PATRICK LIPA #### [facility] [address] [place] [address] Dr. Manuel Sandhu CO2 [Moles/Vol] 27.7 mmol/L Normal 21.0-32.0 [facility] Comment on above: Performed By: #### C JENNIE PATRICK LIPA #### [facility] [address] [place] [address] Dr. Manuel Sandhu Creatinine [Mass/Vol] 0.71 mg/dL Normal 0.55-1.02 [facility] Comment on above: Performed By: #### C JENNIE PATRICK LIPA #### [facility] [address] [place] [address] Dr. Manuel Sandhu EGFR-AF MONEGASQUE >60 Normal >=60 [facility] Comment on above: Performed By: #### C JENNIE PATRICK LIPA #### [facility] [address] [place] [address] Dr. Manuel Sandhu EGFR-NON AF MONEGASQUE >60 Normal >=60 [facility] Comment on above: Performed By: #### C JENNIE PATRICK LIPA #### [facility] [address] [place] [address] Dr. Manuel Sandhu Globulin (S) [Mass/Vol] 3.9 g/dL Normal [facility] Comment on above: Performed By: #### C JENNIE PATRICK LIPA #### [facility] [address] [place] [address] Dr. Manuel Sandhu Glucose [Mass/Vol] 109 mg/dL Critically high 74-106 [facility] Comment on above: Performed By: #### C JENNIE PATRICK LIPA #### [facility] [address] [place] [address] Dr. Manuel Sandhu Potassium [Moles/Vol] 3.4 mmol/L Critically low 3.5-5.1 [facility] Comment on above: Performed By: #### C JENNIE PATRICK LIPA #### [facility] [address] [place] [address] Dr. Manuel Sandhu Protein [Mass/Vol] 8.2 g/dL Normal 6.4-8.[address] [facility] Comment on above: Performed By: #### C JENNIE PATRICK LIPA #### [facility] [address] [place] [address] Dr. Manuel Sandhu Sodium [Moles/Vol] 137 mmol/L Normal 136-[address] [facility] Comment on above: Performed By: #### C JENNIE PATRICK LIPA #### [facility] [address] [place] [address] Dr. Manuel Sandhu Urea nitrogen [Mass/Vol] 10.0 mg/dL Normal 7.0-18.0 [facility] Comment on above: Performed By: #### C JENNIE PATRICK LIPA #### [facility] [address] [place] [address] Dr. Manuel Sandhu Urea nitrogen/Creatinine [Mass ratio] 14.1 mg/mg Normal [facility] Comment on above: Performed By: #### C JENNIE PATRICK LIPA #### [facility] [address] [place] [address] Dr. Manuel Sandhu PROTIMEon 08-11-2022 INR Coag (PPP) [Relative time] 0.96 {INR} Normal [facility] Comment on above: Performed By: #### I NFLUAB #### [facility] [address] [place] [address] Dr. Manuel Sandhu INR GUIDELINES SEE BELOW Normal [facility] Comment on above: Result Comment: CHUY RED INR: 2.0 - 3.0 CONDITIONS NOT LISTED BELOW 2.5 - 3.5 FOR PROSTHETIC HEART VALVE REPLACEMENT 2.5 - 3.5 RECURRENT THROMBOSIS Performed By: #### I NFLUAB #### [facility] [address] [place] [address] Dr. Manuel Sandhu PT Coag (PPP) [Time] 10.4 s Normal 9.0-11.6 [facility] Comment on above: Performed By: #### I NFLUAB #### [facility] [address] [place] [address] Dr. Manuel Sandhu PTTon 08-11-2022 aPTT Coag (Bld) [Time] 25.3 s Normal 22.3-36.2 [facility] Comment on above: Performed By: #### I NFLUAB #### [facility] [address] [place] [address] Dr. Manuel Sandhu TROPONIN, HIGH SENSITIVITYon 08-11-2022 HSTROP 4.5 pg/mL Normal 4.0-51.3 [facility] Comment on above: Result Comment: CUT- OFF POINTS HAVE BEEN ESTABLISHED BASED ON THE FOURTH UNIVERSAL DEFINITIONS OF MYOCARDIAL INFARCTION. THE UPPER REFERENCE LIMIT (URL) OF TROPONIN, DEFINED THE 99TH PERCENTILE OF cTnI DISTRIBUTION IN A REFERENCE POPULATION, HAS BEEN CONFIRMED THE DECISION THRESHOLD FOR MS DIAGNOSIS. Performed By: #### C CELINA JENNIE, LIPA #### [facility] [address] [place] [address] Dr. Manuel Sandhu TSHon 08-11-2022 TSH 1.778 uIU/mL Normal 0.358-3.740 [facility] Comment on above: Performed By: #### C JENNIE PATRICK LIPA #### [facility] [address] [place] [address] Dr. Manuel Sandhu CHEMISTRYOrdered By: SYSTEM SYSTEM [...] rate/Area] mL/min/1.73 m2 Normal >=59mL/min/1 .73 m2 [facility] Chem S GFR/1.73 sq M.predicted among non-blacks MDRD (S/P/Bld) [Vol rate/Area] mL/min/1.73 m2 Normal >=59mL/min/1 .73 m2 [facility] Chem S Glucose [Mass/Vol] 84 mg/dL Normal 55 - 199 mg/dL [facility] Remisol Potassium [Moles/Vol] 4.2 mmol/L Normal 3.5 - 5.3 mmol/L [facility] Remisol Sodium [Moles/Vol] 137 mmol/L Normal 135 - 145 mmol/L [facility] Remisol Urea nitrogen [Mass/Vol] 13 mg/dL Normal 5 - 21 mg/dL [facility] Remisol Urea nitrogen/Creatinine [Mass ratio] 22 mg/mg High 10 - 20 [facility] Remisol CHEMISTRYOrdered By: Lab ROP User on 08-08-2022 Glucose [Mass/Vol] 98 mg/dL Normal 55 - 99 mg/dL [facility] POC Subsection POC Device SN [id number] Invalid Interpretation Code [facility] POC Subsection POC User ID [id number] Invalid Interpretation Code [facility] POC Subsection POC Username MOLLY RALPH Invalid Interpretation Code [facility] POC Subsection HEMATOLOGYOrdered By: SYSTEM SYSTEM on [...] AM) Normal Negative [facility] UA Auto SS Malin.plasma/Malin .RBC (Bld) [Mass ratio] 0-3 /HPF Normal [...] Desc Clean Catch (08/08/22 10:01 AM) Normal [facility] UA Auto SS Urobilinogen Qn (U) 0.0260976 {Lucila'U}/dL Normal 0.0 - 1.0 EU/dL [facility] UA Auto SS WBC Auto Ql (U) Negative (08/08/22 10:01 AM) Normal Negative [facility] UA Auto SS WBC LM.HPF (Urine sed) [#/Area] 0-5 /HPF Normal 0-5/HPF [facility] UA Auto SS CBC AUTO DIFFon 07-19-2022 BASO # 0.1 103/ul Normal 0.0-0.1 [facility] Comment on above: Performed By: #### I NFLUAB #### [facility] [address] [place] [address] Dr. Manuel Sandhu Basophils/100 WBC (Bld) 0.4 % Normal 0.2-2.0 [facility] Comment on above: Performed By: #### I NFLUAB #### [facility] [address] [place] [address] Dr. Manuel Sandhu EO # 0.3 103/ul Normal 0.0-0.7 [facility] Comment on above: Performed By: #### I NFLUAB #### [facility] [address] [place] [address] Dr. Manuel Sandhu Eosinophils/100 WBC (Bld) 2.4 % Normal 0.9-7.0 [facility] Comment on above: Performed By: #### I NFLUAB #### [facility] [address] [place] [address] Dr. Manuel Sandhu Erythrocyte distribution width (RBC) [Ratio] 13.7 % Normal 11.0-15.0 [facility] Comment on above: Performed By: #### I NFLUAB #### [facility] [address] [place] [address] Dr. Manuel Sandhu Hematocrit (Bld) [Volume fraction] 36.5 % Normal 36.0-48.0 [facility] Comment on above: Performed By: #### I NFLUAB #### [facility] [address] [place] [address] Dr. Manuel Sandhu Hemoglobin (Bld) [Mass/Vol] 12.3 g/dL Normal 12.0-16.0 [facility] Comment on above: Performed By: #### I NFLUAB #### [facility] [address] [place] [address] Dr. Manuel Sandhu IG # 0.04 10e3/ul Critically high 0.00-0.03 [facility] Comment on above: Performed By: #### I NFLUAB #### [facility] [address] [place] [address] Dr. Manuel Sandhu IG % 0.3 % Normal 0.0-0.5 [facility] Comment on above: Performed By: #### I NFLUAB #### [facility] [address] [place] [address] Dr. Manuel Sandhu LYMPH # 2.6 103/ul Normal 1.2-3.8 [facility] Comment on above: Performed By: #### I NFLUAB #### [facility] [address] [place] [address] Dr. Manuel Sandhu Lymphocytes/100 WBC (Bld) 22.3 % Normal 20.5-60.0 [facility] Comment on above: Performed By: #### I NFLUAB #### [facility] [address] [place] [address] Dr. Manuel Sandhu MANUAL DIFF REQ NO Normal [facility] Comment on above: Performed By: #### I NFLUAB #### [facility] [address] [address] [address] Manuel Sandhu MCH (RBC) [Entitic mass] 32.5 pg Normal 26.7-34.0 [facility] Comment on above: Performed By: #### I NFLUAB #### [facility] [address] [place] [address] Dr. Manuel Sandhu MCHC (RBC) [Mass/Vol] 33.7 g/dL Normal 29.9-35.2 [facility] Comment on above: Performed By: #### I NFLUAB #### [facility] [address] [address] [address] Manuel Sandhu MCV (RBC) [Entitic vol] 96.6 fL Normal 81.0-99.0 [facility] Comment on above: Performed By: #### I NFLUAB #### [facility] [address] [place] [address] Dr. Manuel Sandhu MONO # 0.6 103/ul Normal 0.3-0.8 [facility] Comment on above: Performed By: #### I NFLUAB #### [facility] [address] [place] [address] Dr. Manuel Sandhu Monocytes/100 WBC (Bld) 5.2 % Normal 1.7-12.0 [facility] Comment on above: Performed By: #### I NFLUAB #### [facility] [address] [place] [address] Dr. Manuel Sandhu NEUT # 8.2 103/ul Critically high 1.4-6.5 [facility] Comment on above: Performed By: #### I NFLUAB #### [facility] [address] [place] [address] Dr. Manuel Sandhu Neutrophils/100 WBC (Bld) 69.4 % Normal 43.0-75.0 [facility] Comment on above: Performed By: #### I NFLUAB #### [facility] [address] [place] [address] Dr. Manuel Sandhu Platelet mean volume (Bld) [Entitic vol] 11.2 fL Normal 9.5-13.5 [facility] Comment on above: Performed By: #### I NFLUAB #### [facility] [address] [place] [address] Dr. Manuel Sandhu PLT 308 103/ul Normal 150-450 [facility] Comment on above: Performed By: #### I NFLUAB #### [facility] [address] [place] [address] Dr. Manuel Sandhu RBC 3.78 106/ul Critically low 4.20-5.40 [facility] Comment on above: Performed By: #### I NFLUAB #### [facility] [address] [place] [address] Dr. Manuel Sandhu WBC 11.8 103/ul Critically high 4.0-11.0 [facility] Comment on above: Performed By: #### I NFLUAB #### [facility] [address] [place] [address] Dr. Manuel Sandhu D-DIMERon 07-19-2022 D-DIMER 0.29 mg/L FEU Normal <=0.59 [facility] Comment on above: Performed By: #### U MICRO, ERUR #### [facility] [address] [place] [address] Dr. Manuel Sandhu D-DIMER COMMENTS SEE BELOW Normal [facility] Comment on above: Result Comment: Incr eases [...] Performed By: #### U MICRO, ERUR #### [facility] [address] [place] [address] Dr. Manuel Sandhu LIPASEon 07-19-2022 Lipase [Catalytic activity/Vol] 119.0 U/L Normal 73.0-393.0 [facility] Comment on above: Performed By: #### C JENNIE PATRICK LIPA #### [facility] [address] [place] [address] Dr. Manuel Sandhu PROF 14(COMP METB)on 022 Albumin [Mass/Vol] 3.5 g/dL Normal 3.4-5.[address] [facility] Comment on above: Performed By: #### C JENNIE PATRICK LIPA #### [facility] [address] [place] [address] Dr. Manuel Sandhu Albumin/Globulin [Mass ratio] 1.0 {ratio} Normal [facility] Comment on above: Performed By: #### C JENNIE PATRICK LIPA #### [facility] [address] [address] [address] Manuel Sandhu ALP [Catalytic activity/Vol] 65 U/L Normal 46-116 [facility] Comment on above: Performed By: #### C MP, JENNIE, LIPA #### [facility] [address] [address] [address] Manuel Sandhu ALT [Catalytic activity/Vol] 33 U/L Normal 14-59 [facility] Comment on above: Performed By: #### C MP, JENNIE, LIPA #### [facility] [address] [address] [address] Manuel Sandhu Anion gap [Moles/Vol] 10.8 mmol/L Normal [facility] Comment on above: Performed By: #### C MP, JENNIE, LIPA #### [facility] [address] [address] [address] Manuel Sandhu AST [Catalytic activity/Vol] 20 U/L Normal 15-37 [facility] Comment on above: Performed By: #### C MP, JENNIE, LIPA #### [facility] [address] [address] [address] Manuel Sandhu Bilirubin [Mass/Vol] 0.1 mg/dL Critically low 0.2-1.0 [facility] Comment on above: Performed By: #### C MP, JENNIE, LIPA #### [facility] [address] [address] [address] Manuel Sandhu Calcium [Mass/Vol] 8.7 mg/dL Normal 8.5-10.1 [facility] Comment on above: Performed By: #### C MP, JENNIE, LIPA #### [facility] [address] [address] [address] Manuel Sandhu Chloride [Moles/Vol] 105 mmol/L Normal 98-107 [facility] Comment on above: Performed By: #### C MP, JENNIE, LIPA #### [facility] [address] [address] [address] Manuel Sandhu CO2 [Moles/Vol] 24.4 mmol/L Normal 21.0-32.0 [facility] Comment on above: Performed By: #### C MP, JENNIE, LIPA #### [facility] [address] [address] [address] Manuel Sandhu Creatinine [Mass/Vol] 0.91 mg/dL Normal 0.55-1.02 [facility] Comment on above: Performed By: #### C MP, JENNIE, LIPA #### [facility] [address] [address] [address] Manuel Sandhu EGFR-AF MONEGASQUE >60 Normal >=60 [facility] Comment on above: Performed By: #### C MP, JENNIE, LIPA #### [facility] [address] [place] [address] Dr. Manuel Sandhu EGFR-NON AF MONEGASQUE >60 Normal >=60 [facility] Comment on above: Performed By: #### C MP, JENNIE, LIPA #### [facility] [address] [place] [address] Dr. Manuel Sandhu Globulin (S) [Mass/Vol] 3.4 g/dL Normal [facility] Comment on above: Performed By: #### C MP, JENNIE, LIPA #### [facility] [address] [place] [address] Dr. Manuel Sandhu Glucose [Mass/Vol] 127 mg/dL Critically high 74-106 [facility] Comment on above: Performed By: #### C MP, JENNIE, LIPA #### [facility] [address] [place] [address] Dr. Manuel Sandhu Potassium [Moles/Vol] 3.2 mmol/L Critically low 3.5-5.1 [facility] Comment on above: Performed By: #### C MP, JENNIE, LIPA #### [facility] [address] [place] [address] Dr. Manuel Sandhu Protein [Mass/Vol] 6.9 g/dL Normal 6.4-8.2 [facility] Comment on above: Performed By: #### C MP, JENNIE, LIPA #### [facility] [address] [place] [address] Dr. Manuel Sandhu Sodium [Moles/Vol] 137 mmol/L Normal 136-145 [facility] Comment on above: Performed By: #### C JENNIE PATRICK LIPA #### [facility] [address] [place] [address] Dr. Manuel Sandhu Urea nitrogen [Mass/Vol] 13.0 mg/dL Normal 7.0-18.0 [facility] Comment on above: Performed By: #### C JENNIE PATRICK LIPA #### [facility] [address] [place] [address] Dr. Manuel Sandhu Urea nitrogen/Creatinine [Mass ratio] 14.3 mg/mg Normal [facility] Comment on above: Performed By: #### C JENNIE PATRICK LIPA #### [facility] [address] [place] [address] Dr. Manuel Sandhu PROTIMEon 07-19-2022 INR Coag (PPP) [Relative time] 0.97 {INR} Normal [facility] Comment on above: Performed By: #### P TT, PT #### [facility] [address] [place] [address] Dr. Manuel Sandhu INR GUIDELINES SEE BELOW Normal [facility] Comment on above: Result Comment: CHUY RED INR: 2.0 - 3.0 CONDITIONS NOT LISTED BELOW 2.5 - 3.5 FOR PROSTHETIC HEART VALVE REPLACEMENT 2.5 - 3.5 RECURRENT THROMBOSIS Performed By: #### P TT, PT #### [facility] [address] [place] [address] Dr. Manuel Sandhu PT Coag (PPP) [Time] 10.5 s Normal 9.0-11.6 [facility] Comment on above: Performed By: #### P TT, PT #### [facility] [address] [place] [address] Dr. Manuel Sandhu PTTon 07-19-2022 aPTT Coag (Bld) [Time] 26.1 s Normal 22.3-36.2 [facility] Comment on above: Performed By: #### P TT, PT #### [facility] [address] [place] [address] Dr. Manuel Sandhu TROPONIN, HIGH SENSITIVITYon 07-19-2022 HSTROP 5.4 pg/mL Normal 4.0-51.3 [facility] Comment on above: Result Comment: CUT- OFF POINTS HAVE BEEN ESTABLISHED BASED ON THE FOURTH UNIVERSAL DEFINITIONS OF MYOCARDIAL INFARCTION. THE UPPER REFERENCE LIMIT (URL) OF TROPONIN, DEFINED THE 99TH PERCENTILE OF cTnI DISTRIBUTION IN A REFERENCE POPULATION, HAS BEEN CONFIRMED THE DECISION THRESHOLD FOR MS DIAGNOSIS. Performed By: #### U PADMINI, ERUR #### [facility] [address] [address] [address] Manuel Sandhu HSTROP 5.1 pg/mL Normal 4.0-51.3 [facility] Comment on above: Result Comment: CUT- OFF POINTS HAVE BEEN ESTABLISHED BASED ON THE FOURTH UNIVERSAL DEFINITIONS OF MYOCARDIAL INFARCTION. THE UPPER REFERENCE LIMIT (URL) OF TROPONIN, DEFINED THE 99TH PERCENTILE OF cTnI DISTRIBUTION IN A REFERENCE POPULATION, HAS BEEN CONFIRMED THE DECISION THRESHOLD FOR MS DIAGNOSIS. Performed By: #### C JENNIE PATRICK LIPA #### [facility] [address] [address] [address] Manuel Sandhu XR CHEST 1 Von [...] LUCIANA ALLEN Date: 2022-07-19 19:28 Normal [facility] Covid-19 PCR (CVDTBH)on 05-16 SARS-CoV-2 (COVID-19) RNA JOSÉ MIGUEL+probe Ql (Unsp spec) Not detected Normal NOT DETECTED [facility] Comment on above: Result Comment: When [...] for this test is supported by the [employer] of Health and Human Service's declaration that [...] By: #### C JENNIE PATRICK LIPA #### [facility] [address] [address] [address] Manuel aSndhu XR CHEST 2 Von 06-12-2022 XR CHEST [...] CAROLYNE RALPH Date: 2022-06-12 10:12 Normal [facility] Covid-19 PCR (CVDTB)on 05-15 SARS-CoV-2 (COVID-19) RNA JOSÉ MIGUEL+probe Ql (Unsp spec) Not detected Normal NOT DETECTED [facility] Comment on above: Result Comment: When [...] for this test is supported by the [employer] of Health and Human Service's declaration that [...] used). Performed By: #### I NFLUAB #### [facility] [address] [place] [address] Dr. Manuel Sandhu CHEMISTRYOrdered By: SYSTEM SYSTEM on 04-20-2022 Anion gap [Moles/Vol] 12 mmol/L Normal 6 - 16 mEq/L F [facility] Remisol Calcium [Mass/Vol] 9.5 mg/dL Normal 8.9 - 11. 1 mg/dL [facility] Remisol Chloride [Moles/Vol] 107 mmol/L Normal 101 - 1 11 mmol/L [facility] CO2 [Moles/Vol] 22 mmol/L Normal 21 - 31 mmol/L [facility] Creatinine [Mass/Vol] 0.6 mg/dL Normal 0.5 - 1.3 mg/dL [facility] GFR/1.73 sq M.predicted among blacks MDRD (S/P/Bld) [Vol rate/Area] mL/min/1.73 m2 Normal >=59mL/min/1 .73 m2 [facility] S GFR/1.73 sq M.predicted among non-blacks MDRD (S/P/Bld) [Vol rate/Area] mL/min/1.73 m2 Normal >=59mL/min/1 .73 m2 [facility] Chem S Glucose [Mass/Vol] 98 mg/dL Normal [...] 312.0 E9/L Normal 150.0 - 500.0 E9/L [facility] HemeAutoSS RBC (Bld) [#/Vol] 4.1 E12/L Low 4.3 - 5.9 E12/L [facility] HemeAutoSS WBC corrected for nucl RBC Auto (Bld) [#/Vol] 13.1 E9/L High 4.0 - 11.0 E9/L [facility] HemeAutoSS Covid-19 PCR ([facility])on 03-15 SARS-CoV-2 (COVID-19) RNA JOSÉ MIGUEL+probe Ql (Unsp spec) Detected Critically abnormal NOT DETECTED [facility] Comment on above: Result Comment: This test is not yet approved or cleared by the [place] FDA. When there are no FDA-approved or cleared tests available, and other criteria are met, FDA can make tests available under an emergency access mechanism called an Emergency Use Authorization (EUA). The EUA for this test is supported by the [place] of Health and Human Service's declaration that [...] By: #### C JENNIE PATRICK LIPA #### [facility] [address] [place] [address] Dr. Manuel Sandhu GROUP A STREP CULTUREon 03-15 S. pyogenes Ag Ql (Unsp spec) Culture Observations: NEGATIVE FOR GROUP A STREPTOCOCCUS. Normal [facility] Comment on above: Performed By: #### U MICRO, ERUR #### [facility] [address] [place], [place] [address] Dr. Manuel Sandhu INFLUENZA A AND B AGon 04-07 INFLUENZA A AG Negative Normal NEGATIVE SEE COMMENT [facility] Comment on above: Performed By: #### I NFLUAB #### [facility] [address] [address] [address] Manuel Sandhu INFLUENZA B AG Negative Normal NEGATIVE SEE COMMENT [facility] Comment on above: Performed By: #### I NFLUAB #### [facility] [address] [address] [address] Manuel Sandhu INTERNAL CONTROLS Within Normal Limits Normal Wi thin Normal Limits [facility] Comment on above: Performed By: #### I NFLUAB #### [facility] [address] [place], [place] [address] Dr. Manuel Sandhu STREPT SCREENon 04-07-2022 STREP SCREEN A Negative Normal NEGATIVE [facility] Comment on above: Performed By: #### U MICRO, ERUR #### [facility] [address] [place], [place] [address] Dr. Manuel Sandhu CHEMISTRYOrdered By: SYSTEM SYSTEM [...] PM) Normal Negative [facility] UA Auto SS Malin.plasma/Malin .RBC (Bld) [Mass ratio] 0-3 /HPF Normal 0-3/HPF [facility] UA Auto SS Nitrite Ql (U) Negative (04/03/22 6:51 PM) Normal Negative [facility] UA Auto SS pH (U) 5.0 *NA* (04/03/22 6:51 PM) Invalid Interpretation Code 5.0 - 9.0 [facility] UA Auto SS Protein (U) [Mass/Vol] Negative (04/03/22 6:51 PM) Normal Negative [facility]A Auto SS Specific gravity (U) [Rel density] 1.010 *NA* (04/03/22 6:51 PM) Invalid Interpretation Code 1.005 - 1.030 [facility] UA Auto SS UA Spec Desc Clean Catch (04/03/22 6:51 PM) Normal [facility] UA Auto SS Urobilinogen Qn (U) [id number] {Lucila'U}/dL Normal 0.0 - 1.0 EU/dL [facility] Auto SS WBC Auto Ql (U) Negative (04/03/22 6:51 PM) Normal Negative [facility] UA Auto SS WBC LM.HPF (Urine sed) [#/Area] 0-5 /HPF Normal 0-5/HPF [facility] UA Auto SS GROUP A STREP CULTUREon 01-13 S. pyogenes Ag Ql (Unsp spec) Culture Observations: NEGATIVE FOR GROUP A STREPTOCOCCUS. Normal [facility] Comment on above: Performed By: #### I NFLUAB #### [facility] [address] [place] [address] Dr. Manuel Sandhu STREPT SCREENon 02-08-2022 STREP SCREEN A Negative Normal NEGATIVE [facility] Comment on above: Performed By: #### I NFLUAB #### [facility] [address] [place] [address] Dr. Manuel Sandhu CBC AUTO DIFFon 01-30-2022 BASO # 0.1 103/ul Normal 0.0-0.1 [facility] Comment on above: Performed By: #### C BC #### [facility] [address] [place] [address] Dr. Manuel Sandhu Basophils/100 WBC (Bld) 0.4 % Normal 0.2-2.0 [facility] Comment on above: Performed By: #### C BC #### [facility] [address] [place] [address] Dr. Manuel Sandhu EO # 0.4 103/ul Normal 0.0-0.7 [facility] Comment on above: Performed By: #### C BC #### [facility] [address] [place] [address] Dr. Manuel Sandhu Eosinophils/100 WBC (Bld) 3.0 % Normal 0.9-7.0 [facility] Comment on above: Performed By: #### C BC #### [facility] [address] [place] [address] Dr. Manuel Sandhu Erythrocyte distribution width (RBC) [Ratio] 13.3 % Normal 11.0-15.0 [facility] Comment on above: Performed By: #### C BC #### [facility] [address] [place] [address] Dr. Manuel Sandhu Hematocrit (Bld) [Volume fraction] 36.8 % Normal 36.0-48.0 [facility] Comment on above: Performed By: #### C BC #### [facility] [address] [place] [address] Dr. Manuel Sandhu Hemoglobin (Bld) [Mass/Vol] 12.2 g/dL Normal 12.0-16.0 [facility] Comment on above: Performed By: #### C BC #### [facility] [address] [place] [address] Dr. Manuel Sandhu IG # 0.04 10e3/ul Critically high 0.00-0.03 [facility] Comment on above: Performed By: #### C BC #### [facility] [address] [place] [address] Dr. Manuel Sandhu IG % 0.3 % Normal 0.0-0.5 [facility] Comment on above: Performed By: #### C BC #### [facility] [address] [place] [address] Dr. Manuel Sandhu LYMPH # 2.8 103/ul Normal 1.2-3.8 [facility] Comment on above: Performed By: #### C BC #### [facility] [address] [place] [address] Dr. Manuel Sandhu Lymphocytes/100 WBC (Bld) 23.0 % Normal 20.5-60.0 [facility] Comment on above: Performed By: #### C BC #### [facility] [address] [place] [address] Dr. Manuel Sandhu MANUAL DIFF REQ NO Normal [facility] Comment on above: Performed By: #### C BC #### [facility] [address] [place] [address] Dr. Manuel Sandhu MCH (RBC) [Entitic mass] 32.1 pg Normal 26.7-34.0 [facility] Comment on above: Performed By: #### C BC #### [facility] [address] [place] [address] Dr. Manuel Sandhu MCHC (RBC) [Mass/Vol] 33.2 g/dL Normal 29.9-35.2 [facility] Comment on above: Performed By: #### C BC #### [facility] [address] [place] [address] Dr. Manuel Sandhu MCV (RBC) [Entitic vol] 96.8 fL Normal 81.0-99.0 [facility] Comment on above: Performed By: #### C BC #### [facility] [address] [place] [address] Dr. Manuel Sandhu MONO # 0.7 103/ul Normal 0.3-0.8 [facility] Comment on above: Performed By: #### C BC #### [facility] [address] [place] [address] Dr. Manuel Sandhu Monocytes/100 WBC (Bld) 5.6 % Normal 1.7-12.0 [facility] Comment on above: Performed By: #### C BC #### [facility] [address] [place] [address] Dr. Manuel Sandhu NEUT # 8.2 103/ul Critically high 1.4-6.5 [facility] Comment on above: Performed By: #### C BC #### [facility] [address] [place] [address] Dr. Manuel Sandhu Neutrophils/100 WBC (Bld) 67.7 % Normal 43.0-75.0 [facility] Comment on above: Performed By: #### C BC #### [facility] [address] [address] [address] Manuel Sandhu Platelet mean volume (Bld) [Entitic vol] 11.2 fL Normal 9.5-13.5 [facility] Comment on above: Performed By: #### C BC #### [facility] [address] [address] [address] Manuel Sandhu PLT 312 103/ul Normal 150-450 [facility] Comment on above: Performed By: #### C BC #### [facility] [address] [address] [address] Manuel Sandhu RBC 3.80 106/ul Critically low 4.20-5.40 [facility] Comment on above: Performed By: #### C BC #### [facility] [address] [place] [address] Dr. Manuel Sandhu WBC 12.1 103/ul Critically high 4.0-11.0 [facility] Comment on above: Performed By: #### C BC #### [facility] [address] [place] [address] Dr. Manuel Sandhu [facility]12 SARS-CoV-2 (COVID-19) RNA JOSÉ MIGUEL+probe Ql (Unsp spec) Not detected Normal NOT DETECTED [facility] Comment on above: Result Comment: This test is not yet approved or cleared by the [place] FDA. When there are no FDA-approved or cleared tests available, and other criteria are met, FDA can make tests available under an emergency access mechanism called an Emergency Use Authorization (EUA). The EUA for this test is supported by the [place] of Health and Human Service's (HHS's) declaration [...] SARS-CoV-2. Performed By: #### C VDTBH #### [facility] [address] [place] [address] Dr. Manuel Sandhu DRUG SCREEN RAPID (URINE)on 01-30-2022 AMP Negative Normal NEGATIVE [facility] Comment on above: Performed By: #### U MICRO, ERUR #### [facility] [address] [place] [address] Dr. Manuel Sandhu BAR Negative Normal NEGATIVE [facility] Comment on above: Performed By: #### U MICRO, ERUR #### [facility] [address] [place] [address] Dr. Manuel Sandhu BUP Negative Normal NEGATIVE [facility] Comment on above: Performed By: #### U MICRO, ERUR #### [facility] [address] [place] [address] Dr. Manuel Sandhu BZO Negative Normal NEGATIVE [facility] Comment on above: Performed By: #### U MICRO, ERUR #### [facility] [address] [place] [address] Dr. Manuel Sandhu WISAM Negative Normal NEGATIVE [facility] Comment on above: Performed By: #### U MICRO, ERUR #### [facility] [address] [place] [address] Dr. Manuel Sandhu CUT-OFFS SEE BELOW Normal [facility] Comment on above: Result Comment: AMP [...] Performed By: #### U MICRO, ERUR #### [facility] [address] [address] [address] Manuel Sandhu DRUG CUT HEADER DRUG CLASS TEST SYST EM CUT-OFF CONCENTRATIONS ARE FOLLOWS: Normal [facility] Comment on above: Performed By: #### U MICRO, ERUR #### [facility] [address] [address] [address] Manuel Sandhu mAMP Negative Normal NEGATIVE [facility] Comment on above: Performed By: #### U MICRO, ERUR #### [facility] [address] [address] [address] Manuel Sandhu MTD Negative Normal NEGATIVE [facility] Comment on above: Performed By: #### U MICRO, ERUR #### [facility] [address] [place] [address] Dr. Manuel Sandhu OPI Negative Normal NEGATIVE [facility] Comment on above: Performed By: #### U MICRO, ERUR #### [facility] [address] [address] [address] Manuel Sandhu OXY Negative Normal NEGATIVE [facility] Comment on above: Performed By: #### U MICRO, ERUR #### [facility] [address] [address] [address] Manuel Sandhu PCP Negative Normal NEGATIVE [facility] Comment on above: Performed By: #### U MICRO, ERUR #### [facility] [address] [address] [address] Manuel Sandhu PPX Negative Normal NEGATIVE [facility] Comment on above: Performed By: #### U MICRO, ERUR #### [facility] [address] [address] [address] Manuel Sandhu TCA Negative Normal NEGATIVE [facility] Comment on above: Performed By: #### U MICRO, ERUR #### [facility] [address] [address] [address] Manuel Sandhu THC Negative Normal NEGATIVE [facility] Comment on above: Performed By: #### U MICRO, ERUR #### [facility] [address] [address] [address] Manuel Sandhu ER URINE PROFILEon 2 Bilirubin Ql (U) Negative Normal NEGATIVE [facility] Comment on above: Performed By: #### U MICRO, ERUR #### [facility] [address] [address] [address] Manuel Sandhu Clarity (U) CLEAR Normal CLEAR [facility] Comment on above: Performed By: #### U MICRO, ERUR #### [facility] [address] [address] [address] Manuel Sandhu Color (U) LT. YELLOW Normal YELLOW [facility] Comment on above: Performed By: #### U MICRO, ERUR #### [facility] [address] [address] [address] Manuel CUNHA A micrscopic examination will be performed if indicated. Normal [facility] Comment on above: Performed By: #### U MICRO, ERUR #### [facility] [address] [address] [address] Manuel Sandhu Glucose Ql (U) Negative Normal NEGATIVE [facility] Comment on above: Performed By: #### U MICRO, ERUR #### [facility] [address] [address] [address] Manuel Sandhu Hemoglobin Ql (U) Negative Normal NEGATIVE [facility] Comment on above: Performed By: #### U MICRO, ERUR #### [facility] [address] [address] [address] Manuel Sandhu Ketones Ql (U) Negative Normal NEGATIVE [facility] Comment on above: Performed By: #### U MICRO, ERUR #### [facility] [address] [address] [address] Manuel Sandhu LEUKOCYTES Negative Normal NEGATIVE [facility] Comment on above: Performed By: #### U MICRO, ERUR #### [facility] [address] [address] [address] Manuel Sandhu Nitrite Ql (U) Negative Normal NEGATIVE [facility] Comment on above: Performed By: #### U MICRO, ERUR #### [facility] [address] [address] [address] Manuel Sandhu pH (U) 5.5 [pH] Normal 5-9 [facility] Comment on above: Performed By: #### U MICRO, ERUR #### [facility] [address] [place] [address] Dr. Manuel Sandhu SPEC GRAVITY <=1.005 Abnormal 1.005-<=1.02 5 [facility] Comment on above: Performed By: #### U MICRO, ERUR #### [facility] [address] [place] [address] Dr. Manuel Sandhu UA PROTEIN Negative Normal NEGATIVE/ TRACE [facility] Comment on above: Performed By: #### U MICRO, ERUR #### [facility] [address] [place] [address] Dr. Manuel Sandhu UR MICRO IND NOT INDICATED Normal [facility] Comment on above: Performed By: #### U MICRO, ERUR #### [facility] [address] [place] [address] Dr. Manuel Sandhu Urobilinogen Qn (U) 0.2 {Lucila'U}/dL Normal 0.2 - 1. 0 [facility] Comment on above: Performed By: #### U MICRO, ERUR #### [facility] [address] [place] [address] Dr. Manuel Sandhu ETHANOL (BLD ALC)on 01-31-20 22 ALC NOTE NOTE: 80 mg/dl is th e legal limit for a blood alcohol level Normal [facility] Comment on above: Performed By: #### I NFLUAB #### [facility] [address] [place] [address] Dr. Manuel Sandhu Ethanol [Mass/Vol] 47 mg/dL Normal [facility] Comment on above: Performed By: #### I NFLUAB #### [facility] [address] [place] [address] Dr. Manuel Sandhu PREG HCG QUALon 01-30-2022 , QUAL Negative Normal NEGATIVE [facility] Comment on above: Performed By: #### U MICRO, ERUR #### [facility] [address] [address] [address] Manuel Sandhu PROF 14(COMP METB)on 022 Albumin [Mass/Vol] 3.8 g/dL Normal 3.4-5.0 [facility] Comment on above: Performed By: #### I NFLUAB #### [facility] [address] [place] [address] Dr. Manuel Sandhu Albumin/Globulin [Mass ratio] 1.1 {ratio} Normal [facility] Comment on above: Performed By: #### I NFLUAB #### [facility] [address] [place] [address] Dr. Manuel Sandhu ALP [Catalytic activity/Vol] 88 U/L Normal 46-116 [facility] Comment on above: Performed By: #### I NFLUAB #### [facility] [address] [place] [address] Dr. Manuel Sandhu ALT [Catalytic activity/Vol] 30 U/L Normal 14-59 [facility] Comment on above: Performed By: #### I NFLUAB #### [facility] [address] [place] [address] Dr. Manuel Sandhu Anion gap [Moles/Vol] 17.3 mmol/L Normal [facility] Comment on above: Performed By: #### I NFLUAB #### [facility] [address] [place] [address] Dr. Manuel Sandhu AST [Catalytic activity/Vol] 17 U/L Normal 15-37 [facility] Comment on above: Performed By: #### I NFLUAB #### [facility] [address] [place] [address] Dr. Manuel Sandhu Bilirubin [Mass/Vol] 0.2 mg/dL Normal 0.2-1.0 [facility] Comment on above: Performed By: #### I NFLUAB #### [facility] [address] [place] [address] Dr. Manuel Sandhu Calcium [Mass/Vol] 8.9 mg/dL Normal 8.5-10.1 [facility] Comment on above: Performed By: #### I NFLUAB #### [facility] [address] [address] [address] Manuel Sandhu Chloride [Moles/Vol] 109 mmol/L Critically high 98-107 [facility] Comment on above: Performed By: #### I NFLUAB #### [facility] [address] [address] [address] Manuel Sandhu CO2 [Moles/Vol] 20.2 mmol/L Critically low 21.0-32.0 [facility] Comment on above: Performed By: #### I NFLUAB #### [facility] [address] [address] [address] Manuel Sandhu Creatinine [Mass/Vol] 0.69 mg/dL Normal 0.55-1.02 [facility] Comment on above: Performed By: #### I NFLUAB #### [facility] [address] [place] [address] Dr. Manuel Sandhu EGFR-AF MONEGASQUE >60 Normal >=60 [facility] Comment on above: Performed By: #### I NFLUAB #### [facility] [address] [place] [address] Dr. Manuel Sandhu EGFR-NON AF MONEGASQUE >60 Normal >=60 [facility] Comment on above: Performed By: #### I NFLUAB #### [facility] [address] [place] [address] Dr. Manuel Sandhu Globulin (S) [Mass/Vol] 3.6 g/dL Normal [facility] Comment on above: Performed By: #### I NFLUAB #### [facility] [address] [address] [address] Manuel Sandhu Glucose [Mass/Vol] 79 mg/dL Normal 74-106 [facility] Comment on above: Performed By: #### I NFLUAB #### [facility] [address] [address] [address] Manuel Sandhu Potassium [Moles/Vol] 3.5 mmol/L Normal 3.5-5.1 [facility] Comment on above: Performed By: #### I NFLUAB #### [facility] [address] [place] [address] Dr. Manuel Sandhu Protein [Mass/Vol] 7.4 g/dL Normal 6.4-8.2 [facility] Comment on above: Performed By: #### I NFLUAB #### [facility] [address] [address] [address] Manuel Sandhu Sodium [Moles/Vol] 143 mmol/L Normal 136-[address] [facility] Comment on above: Performed By: #### I NFLUAB #### [facility] [address] [place] [address] Dr. Manuel Sandhu Urea nitrogen [Mass/Vol] 18.0 mg/dL Normal 7.0-18.0 [facility] Comment on above: Performed By: #### I NFLUAB #### [facility] [address] [place] [address] Dr. Manuel Sandhu Urea nitrogen/Creatinine [Mass ratio] 26.1 mg/mg Normal [facility] Comment on above: Performed By: #### I NFLUAB #### [facility] [address] [place] [address] Dr. Manuel Sandhu AMYLASEon 11-16-2021 Amylase [Catalytic activity/Vol] 60 U/L Normal 31-110 [facility] Comment on above: Performed By: #### C MP, JENNIE, LIPA #### [facility] [address] [place] [address] Dr. Manuel Sandhu CBC AUTO DIFFon 11-16-2021 BASO # 0.1 103/ul Normal 0.0-0.1 [facility] Comment on above: Performed By: #### C MP, JENNIE, LIPA #### [facility] [address] [place] [address] Dr. Manuel Sandhu Basophils/100 WBC (Bld) 0.5 % Normal 0.2-2.0 [facility] Comment on above: Performed By: #### C MP, JENNIE, LIPA #### [facility] [address] [place] [address] Dr. Manuel Sandhu EO # 0.3 103/ul Normal 0.0-0.7 [facility] Comment on above: Performed By: #### C JENNIE PATRICK LIPA #### [facility] [address] [place] [address] Dr. Manuel Sandhu Eosinophils/100 WBC (Bld) 3.1 % Normal 0.9-7.0 [facility] Comment on above: Performed By: #### C JENNIE PATRICK LIPA #### [facility] [address] [place] [address] Dr. Manuel Sandhu Erythrocyte distribution width (RBC) [Ratio] 13.4 % Normal 11.0-15.0 [facility] Comment on above: Performed By: #### C JENNIE PATRICK LIPA #### [facility] [address] [place] [address] Dr. Manuel Sandhu Hematocrit (Bld) [Volume fraction] 39.0 % Normal 36.0-48.0 [facility] Comment on above: Performed By: #### C JENNIE PATRICK LIPA #### [facility] [address] [place] [address] Dr. Manuel Sandhu Hemoglobin (Bld) [Mass/Vol] 12.8 g/dL Normal 12.0-16.0 [facility] Comment on above: Performed By: #### C JENNIE PATRICK LIPA #### [facility] [address] [place] [address] Dr. Manuel Sandhu IG # 0.03 10e3/ul Normal 0.00-0.03 [facility] Comment on above: Performed By: #### C JENNIE PATRICK LIPA #### [facility] [address] [place] [address] Dr. Manuel Sandhu IG % 0.3 % Normal 0.0-0.5 [facility] Comment on above: Performed By: #### C JENNIE PATRICK LIPA #### [facility] [address] [place] [address] Dr. Manuel Sandhu LYMPH # 2.8 103/ul Normal 1.2-3.8 [facility] Comment on above: Performed By: #### C MP, JENNIE, LIPA #### [facility] [address] [place] [address] Dr. Manuel Sandhu Lymphocytes/100 WBC (Bld) 29.9 % Normal 20.5-60.0 [facility] Comment on above: Performed By: #### C MP, JENNIE, LIPA #### [facility] [address] [address] [address] Manuel Sandhu MANUAL DIFF REQ NO Normal [facility] Comment on above: Performed By: #### C MP, JENNIE, LIPA #### [facility] [address] [place] [address] Dr. Manuel Sandhu MCH (RBC) [Entitic mass] 32.2 pg Normal 26.7-34.0 [facility] Comment on above: Performed By: #### C MP, JENNIE, LIPA #### [facility] [address] [place] [address] Dr. Manuel Sandhu MCHC (RBC) [Mass/Vol] 32.8 g/dL Normal 29.9-35.2 [facility] Comment on above: Performed By: #### C MP, JENNIE, LIPA #### [facility] [address] [place] [address] Dr. Manuel Sandhu MCV (RBC) [Entitic vol] 98.0 fL Normal 81.0-99.0 [facility] Comment on above: Performed By: #### C MP, JENNIE, LIPA #### [facility] [address] [place] [address] Dr. Manuel Sandhu MONO # 0.7 103/ul Normal 0.3-0.8 [facility] Comment on above: Performed By: #### C MP, JENNIE, LIPA #### [facility] [address] [place] [address] Dr. Manuel Sandhu Monocytes/100 WBC (Bld) 7.7 % Normal 1.7-12.0 [facility] Comment on above: Performed By: #### C MP, JENNIE, LIPA #### [facility] [address] [place] [address] Dr. Manuel Sandhu NEUT # 5.5 103/ul Normal 1.4-6.5 [facility] Comment on above: Performed By: #### C JENNIE PATRICK LIPA #### [facility] [address] [address] [address] Manuel Sandhu Neutrophils/100 WBC (Bld) 58.5 % Normal 43.0-75.0 [facility] Comment on above: Performed By: #### C JENNIE PATRICK LIPA #### [facility] [address] [address] [address] Manuel Sandhu Platelet mean volume (Bld) [Entitic vol] 11.7 fL Normal 9.5-13.5 [facility] Comment on above: Performed By: #### C JENNIE PATRICK LIPA #### [facility] [address] [place] [address] Dr. Manuel Sandhu PLT 301 103/ul Normal 150-450 [facility] Comment on above: Performed By: #### C JENNIE PATRICK LIPA #### [facility] [address] [address] [address] Manuel Sandhu RBC 3.98 106/ul Critically low 4.20-5.40 [facility] Comment on above: Performed By: #### C JENNIE PATRIKC LIPA #### [facility] [address] [place] [address] Dr. Manuel Sandhu WBC 9.3 103/ul Normal 4.0-11.0 [facility] Comment on above: Performed By: #### C JENNIE PATRICK LIPA #### [facility] [address] [place] [address] ABD/PELVIS WO CONon [...] HARMONY HARRELL Date: 2021-11-16 19:55 Normal [facility] URINE PROFILEon 2 Bilirubin Ql (U) Negative Normal NEGATIVE [facility] Comment on above: Performed By: #### C MP, JENNIE, LIPA #### [facility] [address] [address] [address] Manuel Sandhu Clarity (U) CLEAR Normal CLEAR [facility] Comment on above: Performed By: #### C MP, JENNIE, LIPA #### [facility] [address] [address] [address] Manuel Sandhu Color (U) LT. YELLOW Normal YELLOW [facility] Comment on above: Performed By: #### C MP, JENNIE, LIPA #### [facility] [address] [address] [address] Manuel CUNHA A micrscopic examination will be performed if indicated. Normal [facility] Comment on above: Performed By: #### C MP, JENNIE, LIPA #### [facility] [address] [place] [address] Dr. Manuel Sandhu Glucose Ql (U) Negative Normal NEGATIVE [facility] Comment on above: Performed By: #### C MP, JENNIE, LIPA #### [facility] [address] [place] [address] Dr. Manuel Sandhu Hemoglobin Ql (U) Negative Normal NEGATIVE [facility] Comment on above: Performed By: #### C MP, JENNIE, LIPA #### [facility] [address] [place] [address] Dr. Manuel Sandhu Ketones Ql (U) Negative Normal NEGATIVE [facility] Comment on above: Performed By: #### C MP, JENNIE, LIPA #### [facility] [address] [place] [address] Dr. Manuel Sandhu LEUKOCYTES Negative Normal NEGATIVE [facility] Comment on above: Performed By: #### C MP, JENNIE, LIPA #### [facility] [address] [place] [address] Dr. Manuel Sandhu Nitrite Ql (U) Negative Normal NEGATIVE [facility] Comment on above: Performed By: #### C MP, JENNIE, LIPA #### [facility] [address] [place] [address] Dr. Manuel Sandhu pH (U) 7.0 [pH] Normal 5-9 [facility] Comment on above: Performed By: #### C MP, JENNIE, LIPA #### [facility] [address] [place] [address] Dr. Manuel Sandhu SPEC GRAVITY <=1.005 Abnormal 1.005-<=1.02 5 [facility] Comment on above: Performed By: #### C MP, JENNIE, LIPA #### [facility] [address] [place] [address] Dr. Manuel Sandhu UA PROTEIN Negative Normal NEGATIVE/ TRACE [facility] Comment on above: Performed By: #### C MP, JENNIE, LIPA #### [facility] [address] [place] [address] Dr. Manuel Sandhu UR MICRO IND NOT INDICATED Normal [facility] Comment on above: Performed By: #### C CELINA JENNIE, LIPA #### [facility] [address] [place] [address] Dr. Manuel Sandhu Urobilinogen Qn (U) 0.2 {Lucila'U}/dL Normal 0.2 - 1. 0 [facility] Comment on above: Performed By: #### C MP JENNIE, LIPA #### [facility] [address] [place] [address] Dr. Manuel Sandhu LIPASEon 11-16-2021 Lipase [Catalytic activity/Vol] 78.0 U/L Normal 23.0-300.0 [facility] Comment on above: Performed By: #### C MP, JENNIE, LIPA #### [facility] [address] [place] [address] Dr. Manuel Sandhu URon 11-16-2021 , QUAL Negative Normal NEGATIVE [facility] Comment on above: Performed By: #### C MP, JENNIE, LIPA #### [facility] [address] [place] [address] Dr. Manuel Sandhu PROF 14(COMP METB)on 022 Albumin [Mass/Vol] 4.1 g/dL Normal 3.5-5.0 [facility] Comment on above: Performed By: #### C MP JENNIE, LIPA #### [facility] [address] [address] [address] Manuel Sandhu Albumin/Globulin [Mass ratio] 1.1 {ratio} Normal [facility] Comment on above: Performed By: #### C MP, JENNIE, LIPA #### [facility] [address] [address] [address] Manuel Sandhu ALP [Catalytic activity/Vol] 102 U/L Normal 38-126 [facility] Comment on above: Performed By: #### C MP, JENNIE, LIPA #### [facility] [address] [address] [address] Manuel Sandhu ALT [Catalytic activity/Vol] 39 U/L Normal 9-52 [facility] Comment on above: Performed By: #### C MP, JENNIE, LIPA #### [facility] [address] [place] [address] Dr. Manuel Sandhu Anion gap [Moles/Vol] 11.5 mmol/L Normal [facility] Comment on above: Performed By: #### C MP, JENNIE, LIPA #### [facility] [address] [place] [address] Dr. Manuel Sandhu AST [Catalytic activity/Vol] 28 U/L Normal 14-36 [facility] Comment on above: Performed By: #### C MP, JENNIE, LIPA #### [facility] [address] [place] [address] Dr. Manuel Sandhu Bilirubin [Mass/Vol] 0.2 mg/dL Normal 0.2-1.3 [facility] Comment on above: Performed By: #### C MP, JENNIE, LIPA #### [facility] [address] [place] [address] Dr. Manuel Sandhu Calcium [Mass/Vol] 9.1 mg/dL Normal 8.4-10.2 [facility] Comment on above: Performed By: #### C MP, JENNIE, LIPA #### [facility] [address] [address] [address] Manuel Sandhu Chloride [Moles/Vol] 105 mmol/L Normal 98-107 [facility] Comment on above: Performed By: #### C MP, JENNIE, LIPA #### [facility] [address] [address] [address] Manuel Sandhu CO2 [Moles/Vol] 25.0 mmol/L Normal 22.0-30.0 [facility] Comment on above: Performed By: #### C MP, JENNIE, LIPA #### [facility] [address] [address] [address] Manuel Sandhu Creatinine [Mass/Vol] 0.77 mg/dL Normal 0.52-1.04 [facility] Comment on above: Performed By: #### C MP, JENNIE, LIPA #### [facility] [address] [place] [address] Dr. Manuel Sandhu EGFR-AF MONEGASQUE >60 Normal >=60 [facility] Comment on above: Performed By: #### C MP, JENNIE, LIPA #### [facility] [address] [place] [address] Dr. Manuel Sandhu EGFR-NON AF MONEGASQUE >60 Normal >=60 [facility] Comment on above: Performed By: #### C MP, JENNIE, LIPA #### [facility] [address] [place] [address] Dr. Manuel Sandhu Globulin (S) [Mass/Vol] 3.8 g/dL Normal [facility] Comment on above: Performed By: #### C MP, JENNIE, LIPA #### [facility] [address] [place] [address] Dr. Manuel Sandhu Glucose [Mass/Vol] 85 mg/dL Normal 74-106 [facility] Comment on above: Performed By: #### C MP, JENNIE, LIPA #### [facility] [address] [address] [address] Manuel Sandhu Potassium [Moles/Vol] 3.5 mmol/L Normal 3.4-5.0 [facility] Comment on above: Performed By: #### C MP, JENNIE, LIPA #### [facility] [address] [place] [address] Dr. Manuel Sandhu Protein [Mass/Vol] 7.9 g/dL Normal 6.1-8.[address] [facility] Comment on above: Performed By: #### C JENNIE PATRICK LIPA #### [facility] [address] [address] [address] Manuel Sandhu Sodium [Moles/Vol] 138 mmol/L Normal 137-[address] [facility] Comment on above: Performed By: #### C JENNIE PATRICK LIPA #### [facility] [address] [address] [address] Manuel Sandhu Urea nitrogen [Mass/Vol] 18.0 mg/dL Critically high 7.0-17.0 [facility] Comment on above: Performed By: #### C JENNIE PATRICK LIPA #### [facility] [address] [address] [address] Manuel Sandhu Urea nitrogen/Creatinine [Mass ratio] 23.4 mg/mg Normal [facility] Comment on above: Performed By: #### C JENNIE PATRICK LIPA #### [facility] [address] ABDOMEN PELVIS W [...] in the pelvis, which could be physiologic. [employer] Work Phone: EXAMINATION: CT OF T HE [...] grade 1 anterolisthesis at L5-S1 is unchanged. [employer] Work Phone: Dario, pn Incoming Radiant Results From [employer]/Book&Table - 02/04/2021 4:32 PM EDT EXAMINATION: CT [...] in the pelvis, which could be physiologic. [employer] Phone: [employer] Phone: Basic Metabolic Panel w/ Ref brannon to MGOrdered By: Ruiz Joel on 02-01-2021 Anion gap [Moles/Vol] 15 mmol/L 9 - 17 mmol/L [employer] Phone: Calcium [Mass/Vol] 8.5 mg/dL Low 8.6 - 10. 4 mg/dL [employer] Phone: Chloride [Moles/Vol] 107 mmol/L 98 - 10 7 mmol/L [employer] Phone: CO2 [Moles/Vol] 16 mmol/L Low 20 - 31 mmol/L [employer] Phone: Creatinine [Mass/Vol] 0.36 mg/dL Low 0.50 - 0.90 mg/dL [employer] Phone: GFR >60 >60 mL/min [employer] Phone: GFR Non- >60 >60 mL/min [employer] Phone: GFR/1.73 sq M.predicted MDRD (S/P/Bld) [Vol rate/Area] [employer] Phone: Comment on above: Average GFR for 30-3 9 years old: 107 mL/min/1.73sq m Chronic Kidney Disease: <60 mL/min/1.73sq m Kidney failure: <15 mL/min/1.73sq m eGFR calculated using average adult body mass. Additional eGFR calculator available at: http://www.[employer]/multiple_crcl_2012.htm GFR/1.73 sq M.predicted MDRD (S/P/Bld) [Vol rate/Area] NOT REPORTED [employer] Phone: Glucose [Mass/Vol] 79 mg/dL 70 - 99 mg/dL [employer] Work Phone: Interpretation and review of laboratory results Abnormal [employer] Work Phone: Potassium [Moles/Vol] 3.7 mmol/L 3.7 - 5.3 mmol/L [employer] Work Phone: Sodium [Moles/Vol] 138 mmol/L 135 - 144 mmol/L [employer] Work Phone: Urea nitrogen (BldV) [Mass/Vol] 2 mg/dL Low 6 - 20 mg/dL [employer] Work Phone: Urea nitrogen/Creatinine (Bld) [Mass ratio] NOT REPORTED [employer] Work Phone: [employer] Work Phone: CBC WITH AUTO DIFFERENTIALOr dered By: Ruiz Joel on 02-01-2021 [employer] # 0.28 [employer] [facility] Work Phone: [employer] Immature Granulocyte 0.06 [employer] Work Phone: [employer] Lymph # 1.62 [employer] Work Phone: [employer] [place] # 1.46 High [employer] [facility] Work Phone: Basophils (Bld) [#/Vol] 0.04 10*3/uL [employer] Work Phone: Basophils/100 WBC (Bld) 0 % 0 - 2 % [employer] Work Phone: Differential Type NOT REPORTED [employer] Work Phone: Eosinophils/100 WBC (Bld) 3 % 1 - 4 % [employer] Work Phone: Hematocrit (Bld) [Volume fraction] 33.7 % Low 36.3 - 47.1 % [employer] Work Phone: Hemoglobin.gastrointes tinal spec 1 Ql (Stl) 10.3 g/dL Low 11.9 - 15.1 g/dL [employer] Phone: Immature granulocytes/100 WBC (Bld) 1 % High 0 [employer] Phone: Interpretation and review of laboratory results Abnormal [employer] Phone: Lymphocytes/100 WBC (Bld) 14 % Low 24 - 43 % [employer] Phone: MCH (RBC) [Entitic mass] 29.9 pg 25.2 - 33.5 pg [employer] Phone: MCHC (RBC) [Mass/Vol] 30.6 g/dL 28.4 - 34.8 g/dL [employer] Phone: MCV (RBC) [Entitic vol] 98.0 fL 82.6 - 102.9 fL [employer] Phone: Monocytes/100 WBC (Bld) 13 % High 3 - 12 % [employer] Phone: NRBC Automated 0.0 0.0 per 100 WBC [employer] Phone: Platelet distribution width (Bld) [Ratio] 13.4 % 11.8 - 14.4 % [employer] Phone: Platelet Estimate NOT REPORTED [employer] Phone: Platelet mean volume (Bld) [Entitic vol] 11.6 fL 8.1 - 13.5 fL [employer] Phone: Platelets (Bld) [#/Vol] 392 10*3/uL [employer] Phone: RBC (Bld) [#/Vol] 3.44 10*6/uL Low 3.95 - 5.1 1 m/uL [employer] Phone: RBC (Bld) [#/Vol] NOT REPORTED [employer] Phone: Segmented neutrophils/100 WBC (Bld) 69 % High 36 - 65 % [employer] Phone: Segs Absolute 7.88 [employer] Work Phone: WBC (Bld) [#/Vol] 11.3 10*3/uL [employer] Phone: WBC (Bld) [#/Vol] NOT REPORTED [employer] Phone: [employer] Phone: Basic Metabolic Panel w/ Ref brannon to MGOrdered By: Nicolasa Le on 01-31-2021 Anion gap [Moles/Vol] 17 mmol/L 9 - 17 mmol/L [employer] Phone: Calcium [Mass/Vol] 8.7 mg/dL 8.6 - 10. 4 mg/dL [employer] Phone: Chloride [Moles/Vol] 105 mmol/L 98 - 10 7 mmol/L [employer] Phone: CO2 [Moles/Vol] 15 mmol/L Low 20 - 31 mmol/L [employer] Phone: Creatinine [Mass/Vol] 0.36 mg/dL Low 0.50 - 0.90 mg/dL [employer] Phone: GFR >60 >60 mL/min [employer] Phone: GFR Non- >60 >60 mL/min [facility] Phone: GFR/1.73 sq M.predicted MDRD (S/P/Bld) [Vol rate/Area] [employer] Phone: Comment on above: Average GFR for 30-3 9 years old: 107 mL/min/1.73sq m Chronic Kidney Disease: <60 mL/min/1.73sq m Kidney failure: <15 mL/min/1.73sq m eGFR calculated using average adult body mass. Additional eGFR calculator available at: http://www.[employer]/multiple_crcl_2012.htm GFR/1.73 sq M.predicted MDRD (S/P/Bld) [Vol rate/Area] NOT REPORTED [employer] Work Phone: Glucose [Mass/Vol] 78 mg/dL 70 - 99 mg/dL [employer] Work Phone: Interpretation and review of laboratory results Abnormal [employer] Work Phone: Potassium [Moles/Vol] 3.8 mmol/L 3.7 - 5.3 mmol/L [employer] Phone: Sodium [Moles/Vol] 137 mmol/L 135 - 144 mmol/L [employer] Work Phone: Urea nitrogen (BldV) [Mass/Vol] 3 mg/dL Low 6 - 20 mg/dL [employer] Work Phone: Urea nitrogen/Creatinine (Bld) [Mass ratio] NOT REPORTED [employer] Phone: [employer] Work Phone: CBC auto differentialOrdered By: Nicolasa Le on 01-31-2021 Absolute Eos # 0.30 [facility] Work Phone: Absolute Immature Granulocyte 0.15 [employer] Work Phone: Absolute Lymph # 2.10 [employer] Work Phone: Absolute [place] # 2.25 High [employer] [facility] Work Phone: Basophils (Bld) [#/Vol] 0.00 10*3/uL [employer] Work Phone: Basophils/100 WBC (Bld) 0 % 0 - 2 % [employer] Work Phone: Differential Type NOT REPORTED [employer] Phone: Eosinophils/100 WBC (Bld) 2 % 1 - 4 % [employer] Work Phone: Hematocrit (Bld) [Volume fraction] 35.7 % Low 36.3 - 47.1 % [employer] Phone: Hemoglobin.gastrointes tinal spec 1 Ql (Stl) 10.8 g/dL Low 11.9 - 15.1 g/dL [employer] Phone: Immature granulocytes/100 WBC (Bld) 1 % High 0 [employer] Phone: Interpretation and review of laboratory results Abnormal [employer] Phone: Lymphocytes/100 WBC (Bld) 14 % Low 24 - 43 % [employer] Phone: MCH (RBC) [Entitic mass] 29.9 pg 25.2 - 33.5 pg [employer] Phone: MCHC (RBC) [Mass/Vol] 30.3 g/dL 28.4 - 34.8 g/dL [employer] Phone: MCV (RBC) [Entitic vol] 98.9 fL 82.6 - 102.9 fL [employer] Phone: Monocytes/100 WBC (Bld) 15 % High 3 - 12 % [employer] Phone: Morphology Celso (Bld) [Interp] Normal [employer] Phone: NRBC Automated 0.0 0.0 per 100 WBC [employer] Phone: Platelet distribution width (Bld) [Ratio] 13.5 % 11.8 - 14.4 % [employer] Phone: Platelet Estimate NOT REPORTED [employer] Phone: Platelet mean volume (Bld) [Entitic vol] 11.6 fL 8.1 - 13.5 fL [employer] Phone: Platelets (Bld) [#/Vol] 375 10*3/uL [employer] Phone: RBC (Bld) [#/Vol] 3.61 10*6/uL Low 3.95 - 5.1 1 m/uL [facility] Work Phone: RBC (Bld) [#/Vol] NOT REPORTED [employer] Work Phone: Segmented neutrophils/100 WBC (Bld) 68 % High 36 - 65 % [facility] Work Phone: Segs Absolute 10.20 High [facility] Work Phone: WBC (Bld) [#/Vol] 15.0 10*3/uL High [facility] Work Phone: WBC (Bld) [#/Vol] NOT REPORTED [employer] Work Phone: [employer] Work Phone: CBC Auto DifferentialOrdered By: David Nash on 01-30-2021 Absolute Eos # 0.21 [employer] [facility] Work Phone: Absolute Immature Granulocyte 0.04 [facility] Work Phone: Absolute Lymph # 1.88 [employer] [facility] Work Phone: Absolute [place] # 1.43 High [employer] [facility] Work Phone: Basophils (Bld) [#/Vol] 0.04 10*3/uL [employer] Work Phone: Basophils/100 WBC (Bld) 0 % 0 - 2 % [employer] Work Phone: Differential Type NOT REPORTED [employer] Work Phone: Eosinophils/100 WBC (Bld) 2 % 1 - 4 % [employer] Work Phone: Hematocrit (Bld) [Volume fraction] 36.2 % Low 36.3 - 47.1 % [employer] Work Phone: Hemoglobin.gastrointes tinal spec 1 Ql (Stl) 11.7 g/dL Low 11.9 - 15.1 g/dL [employer] Phone: Immature granulocytes/100 WBC (Bld) 0 % 0 [employer] Phone: Interpretation and review of laboratory results Abnormal [employer] Phone: Lymphocytes/100 WBC (Bld) 15 % Low 24 - 43 % [employer] Phone: MCH (RBC) [Entitic mass] 30.3 pg 25.2 - 33.5 pg [employer] Phone: MCHC (RBC) [Mass/Vol] 32.3 g/dL 28.4 - 34.8 g/dL [employer] Phone: MCV (RBC) [Entitic vol] 93.8 fL 82.6 - 102.9 fL [employer] Phone: Monocytes/100 WBC (Bld) 12 % 3 - 12 % [employer] Phone: NRBC Automated 0.0 0.0 per 100 WBC [employer] Phone: Platelet distribution width (Bld) [Ratio] 13.2 % 11.8 - 14.4 % [employer] Phone: Platelet Estimate NOT REPORTED [employer] Phone: Platelet mean volume (Bld) [Entitic vol] 11.6 fL 8.1 - 13.5 fL [employer] Phone: Platelets (Bld) [#/Vol] 414 10*3/uL [employer] Phone: RBC (Bld) [#/Vol] 3.86 10*6/uL Low 3.95 - 5.1 1 m/uL [employer] Phone: RBC (Bld) [#/Vol] NOT REPORTED [employer] Phone: Segmented neutrophils/100 WBC (Bld) 71 % High 36 - 65 % [employer] Work Phone: Segs Absolute 8.75 High [employer] Work Phone: WBC (Bld) [#/Vol] 12.4 10*3/uL [email or web address] Phone: WBC (Bld) [#/Vol] NOT REPORTED [employer] Phone: [facility] Phone: CT ABDOMEN PELVIS W IV CONTR [...] anterolisthesis and marked decrease in disc height. [employer] Phone: EXAMINATION: CT OF T HE ABDOMEN [...] height was noted at the L5-S1 disc. [employer] Work Phone: Dario, [facility] [place] Incoming Radiant Results From Xunlei/Book&Table - 01/30/2021 12:20 PM EDT EXAMINATION: CT [...] anterolisthesis and marked decrease in disc height. [employer] Phone: [employer] Phone: Comprehensive Metabolic Pane l w/ Reflex to MGOrdered By: David Nash on 01-30-2021 Albumin [Mass/Vol] 3.6 g/dL 3.5 - 5.2 g/dL [employer] Phone: Albumin/Globulin [Mass ratio] 1.0 {ratio} [employer] Phone: ALP (Bld) [Catalytic activity/Vol] 107 U/L High 35 - 104 U/L [employer] Phone: ALT [Catalytic activity/Vol] 33 U/L 5 - 33 U/L [employer] Phone: Anion gap [Moles/Vol] 17 mmol/L 9 - 17 mmol/L [employer] Phone: AST [Catalytic activity/Vol] 26 U/L <32 [employer] Phone: Bilirubin [Mass/Vol] 0.25 mg/dL Low 0.3 - 1 .2 mg/dL [employer] Phone: Calcium [Mass/Vol] 9.5 mg/dL 8.6 - 10. 4 mg/dL [employer] Phone: Chloride [Moles/Vol] 104 mmol/L 98 - 10 7 mmol/L [employer] Phone: CO2 [Moles/Vol] 19 mmol/L Low 20 - 31 mmol/L [employer] Phone: Creatinine [Mass/Vol] 0.47 mg/dL Low 0.50 - 0.90 mg/dL [employer] Phone: Free PSA/Total PSA [Mass fraction] 7.3 g/dL 6.4 - 8.3 g/dL [employer] Phone: GFR >60 >60 mL/min [employer] Phone: GFR Non- >60 >60 mL/min [employer] Phone: Glucose [Mass/Vol] 79 mg/dL 70 - 99 mg/dL [employer] Phone: Interpretation and review of laboratory results Abnormal [employer] Phone: Potassium [Moles/Vol] 3.8 mmol/L 3.7 - 5.3 mmol/L [employer] Phone: Sodium [Moles/Vol] 140 mmol/L 135 - 144 mmol/L [employer] Phone: Urea nitrogen (BldV) [Mass/Vol] 5 mg/dL Low 6 - 20 mg/dL [employer] Phone: Urea nitrogen/Creatinine (Bld) [Mass ratio] 11 [employer] Phone: HCG Qualitative, SerumOrdere d By: Noreen Powhattan on 01-30-2021 hCG Qual Negative NEGATIVE [employer] Phone: Comment on above: Specimens with hCG l evels near the threshold of the test (25 mIU/mL) may give a negative or indeterminate result. In such cases, another test should be performed with a new specimen in 48-72 hours. If early is suspected clinically in this setting, correlation with quantitative serum b-hCG level is suggested. [employer] has confirmed the use of plasma for this test. This has not been cleared or approved by the U.S. Food and Drug Administration. The FDA has determined that such clearance is not necessary. [employer] Phone: Laboratory - Chemistry and C hemistry - challengeOrdered By: David Nash on 01-30-2021 GFR/1.73 sq M.predicted MDRD (S/P/Bld) [Vol rate/Area] [employer] Phone: Comment on above: Average GFR for 30-3 9 years old: 107 mL/min/1.73sq m Chronic Kidney Disease: <60 mL/min/1.73sq m Kidney failure: <15 mL/min/1.73sq m eGFR calculated using average adult body mass. Additional eGFR calculator available at: http://www.[employer]_crcl_2012.htm Stage 1: Some kidney damage normal GFR Stage 2: Mild kidney damage GFR 60-89 Stage 3: Moderate kidney damage GFR 30-59 Stage 4: Severe kidney damage GFR 15-29 Stage 5: Severe kidney damage GFR <15 ESRD - chronic treatment by dialysis or transplant Lactic AcidOrdered By: Beatriz Nash on 01-30-2021 Lactate [Moles/Vol] 0.6 mmol/L 0.5 - 2. 2 mmol/L [employer] Phone: [employer] Work Phone: LipaseOrdered By: David dalton on 01-30-2021 Lipase [Catalytic activity/Vol] 30 U/L 13 - 60 U/L [employer] Phone: Microscopic UrinalysisOrdere d By: David Nash on 01-30-2021 - [employer] Phone: Amorphous, UA NOT REPORTED None [facility] Work Phone: Bacteria, UA TRACE Abnormal None [employer] Work Phone: Casts UA NOT REPORTED /LPF [employer] Work Phone: Crystals, UA NOT REPORTED None /HPF [facility] Work Phone: Epithelial Cells UA 2 TO 5 [employer] Work Phone: Interpretation and review of laboratory results Abnormal [facility] [employer] Work Phone: Mucus, UA NOT REPORTED None [facility] [employer] Work Phone: Other Observations UA NOT REPORTED NOT REQ. [facility] [employer] Work Phone: RBC, UA 0 TO 2 [facility] [employer] Work Phone: Renal Epithelial, UA NOT REPORTED 0 /HPF [facility] [employer] Work Phone: Trichomonas, UA NOT REPORTED None [facility] [employer] Work Phone: WBC, UA 2 TO 5 [facility] [employer] Work Phone: Yeast, UA NOT REPORTED None [facility] [employer] Work Phone: [facility] [employer] Work Phone: No Panel InformationOrdered By: David Nash on 01-30-2021 [facility] [employer] Work Phone: Protime-INROrdered By: Linda Mckeon on 01-30-2021 INR Coag (Bld) [Relative time] 1.1 {INR} [facility] [employer] Work Phone: Comment on above: Therapeutic Range: Moderate Anticoagulant Intensity: INR = 2.0-3.0 High Anticoagulant Intensity: INR = 2.5-3.5 PT Coag (PPP) [Time] 11.4 s [facility] [employer] Work Phone: [facility] [employer] Work Phone: Urinalysis, reflex to micros copicOrdered By: David Nash on 01-30-2021 Bilirubin Urine SMALL Abnormal NEGATIVE [facility] Work Phone: Color, UA YELLOW YELLOW [facility] [employer] Work Phone: Glucose, Ur Negative NEGATIVE [facility] [employer] Work Phone: Interpretation and review of laboratory results Abnormal [facility] [employer] Work Phone: Ketones Ql (U) 4+ Abnormal NEGATIVE [employer] Work Phone: Leukocyte esterase Test strip Ql (U) Negative NEGATIVE [facility] Work Phone: Nitrite, Urine Negative NEGATIVE [employer] Work Phone: pH, UA 5.5 [facility] [employer] Work Phone: Protein, UA Negative NEGATIVE [facility] Work Phone: Specific [place], UA <1.005 Low [employer] Work Phone: Turbidity UA CLEAR CLEAR [facility] [employer] Work Phone: Urinalysis Comments NOT REPORTED [facility] [employer] Work Phone: Urine Hgb Negative NEGATIVE [facility] [employer] Work Phone: Urobilinogen, Urine Normal Normal [facility] [employer] Work Phone: [facility] Phone: Basic Metabolic PanelOrdered By: Gamaliel Vickers on 01-08-2021 Anion gap [Moles/Vol] 11 mmol/L 9 - 17 mmol/L [facility] Work Phone: Calcium [Mass/Vol] 9.1 mg/dL 8.6 - 10. 4 mg/dL [facility] Phone: Chloride [Moles/Vol] 105 mmol/L 98 - 10 7 mmol/L [facility] Work Phone: CO2 [Moles/Vol] 23 mmol/L 20 - 31 mmol/L [facility] Work Phone: Creatinine [Mass/Vol] 0.57 mg/dL 0.50 - 0.90 mg/dL [employer] Work Phone: GFR >60 >60 mL/min [employer] Work Phone: GFR Non- >60 >60 mL/min [facility] Phone: GFR/1.73 sq M.predicted MDRD (S/P/Bld) [Vol rate/Area] [employer] Phone: Comment on above: Average GFR for 30-3 9 years old: 107 mL/min/1.73sq m Chronic Kidney Disease: <60 mL/min/1.73sq m Kidney failure: <15 mL/min/1.73sq m eGFR calculated using average adult body mass. Additional eGFR calculator available at: http://www.[employer]/multiple_crcl_2012.htm GFR/1.73 sq M.predicted MDRD (S/P/Bld) [Vol rate/Area] NOT REPORTED [employer] Phone: Glucose [Mass/Vol] 106 mg/dL High 70 - 99 mg/dL [employer] Phone: Interpretation and review of laboratory results Abnormal [employer] Phone: Potassium [Moles/Vol] 3.7 mmol/L 3.7 - 5.3 mmol/L [employer] Phone: Sodium [Moles/Vol] 139 mmol/L 135 - 144 mmol/L [employer] Phone: Urea nitrogen (BldV) [Mass/Vol] 7 mg/dL 6 - 20 mg/dL [employer] Phone: Urea nitrogen/Creatinine (Bld) [Mass ratio] NOT REPORTED [employer] Phone: CBCOrdered By: Gamaliel castillo on 01-08-2021 Hematocrit (Bld) [Volume fraction] 38.0 % 36.3 - 47.1 % [employer] Phone: Hemoglobin.gastrointes tinal spec 1 Ql (Stl) 12.2 g/dL 11.9 - 15.1 g/dL [employer] Phone: Interpretation and review of laboratory results Abnormal [employer] Phone: MCH (RBC) [Entitic mass] 30.4 pg 25.2 - 33.5 pg [employer] Phone: MCHC (RBC) [Mass/Vol] 32.1 g/dL 28.4 - 34.8 g/dL [employer] Phone: MCV (RBC) [Entitic vol] 94.8 fL 82.6 - 102.9 fL [employer] Phone: NRBC Automated 0.0 0.0 per 100 WBC [employer] Phone: Platelet distribution width (Bld) [Ratio] 13.5 % 11.8 - 14.4 % [employer] Phone: Platelet mean volume (Bld) [Entitic vol] 11.4 fL 8.1 - 13.5 fL [employer] Phone: Platelets (Bld) [#/Vol] 304 10*3/uL [employer] Phone: RBC (Bld) [#/Vol] 4.01 10*6/uL 3.95 - 5.1 1 m/uL [employer] Phone: WBC (Bld) [#/Vol] 18.0 10*3/uL High [employer] Phone: FL ESOPHAGRAMOrdered By: Yadi Vickers on 01-08-2021 No evidence of postoperative leak. [employer] Phone: EXAMINATION: SINGLE CONTRAST ESOPHAGRAM 01/08/2021 HISTORY: [...] KUB/radiographs to assess progression as clinically warranted. [employer] Phone: Dario, [employer] Incoming Radiant Results From Xunlei/Book&Table - 01/08/2021 12:29 PM EDT EXAMINATION: SINGLE [...] warranted. IMPRESSION: No evidence of postoperative leak. [employer] Phone: Basic Metabolic PanelOrdered By: Gamaliel Vickers on 01-07-2021 Anion gap [Moles/Vol] 10 mmol/L 9 - 17 mmol/L [employer] Phone: Calcium [Mass/Vol] 8.8 mg/dL 8.6 - 10. 4 mg/dL [employer] Phone: Chloride [Moles/Vol] 105 mmol/L 98 - 10 7 mmol/L [employer] Phone: CO2 [Moles/Vol] 20 mmol/L 20 - 31 mmol/L [employer] Phone: Creatinine [Mass/Vol] 0.68 mg/dL 0.50 - 0.90 mg/dL [employer] Phone: GFR >60 >60 mL/min [employer] Phone: GFR Non- >60 >60 mL/min [employer] Phone: GFR/1.73 sq M.predicted MDRD (S/P/Bld) [Vol rate/Area] [employer] Phone: Comment on above: Average GFR for 30-3 9 years old: 107 mL/min/1.73sq m Chronic Kidney Disease: <60 mL/min/1.73sq m Kidney failure: <15 mL/min/1.73sq m eGFR calculated using average adult body mass. Additional eGFR calculator available at: http://www.[employer]/multiple_crcl_2012.htm GFR/1.73 sq M.predicted MDRD (S/P/Bld) [Vol rate/Area] NOT REPORTED [employer] Phone: Glucose [Mass/Vol] 215 mg/dL High 70 - 99 mg/dL [employer] Phone: Interpretation and review of laboratory results Abnormal [employer] Phone: Potassium [Moles/Vol] 4.2 mmol/L 3.7 - 5.3 mmol/L [employer] Phone: Sodium [Moles/Vol] 135 mmol/L 135 - 144 mmol/L [employer] Phone: Urea nitrogen (BldV) [Mass/Vol] 14 mg/dL 6 - 20 mg/dL [employer] Phone: Urea nitrogen/Creatinine (Bld) [Mass ratio] NOT REPORTED [employer] Phone: CBC without DiffOrdered By: Gamaliel Vickers on 01-07-2021 Hematocrit (Bld) [Volume fraction] 38.3 % 36.3 - 47.1 % [employer] Phone: Hemoglobin.gastrointes tinal spec 1 Ql (Stl) 12.5 g/dL 11.9 - 15.1 g/dL [employer] Phone: Interpretation and review of laboratory results Abnormal [employer] Phone: MCH (RBC) [Entitic mass] 30.9 pg 25.2 - 33.5 pg [employer] Phone: MCHC (RBC) [Mass/Vol] 32.6 g/dL 28.4 - 34.8 g/dL [employer] Phone: MCV (RBC) [Entitic vol] 94.8 fL 82.6 - 102.9 fL [employer] Phone: NRBC Automated 0.0 0.0 per 100 WBC [employer] Phone: Platelet distribution width (Bld) [Ratio] 13.4 % 11.8 - 14.4 % [employer] Phone: Platelet mean volume (Bld) [Entitic vol] 11.2 fL 8.1 - 13.5 fL [employer] Phone: Platelets (Bld) [#/Vol] 373 10*3/uL [employer] Phone: RBC (Bld) [#/Vol] 4.04 10*6/uL 3.95 - 5.1 1 m/uL [employer] Phone: WBC (Bld) [#/Vol] 24.9 10*3/uL High [employer] Phone: POCT urine pregnancyOrdered By: Gamaliel Vickers on 01-07-2021 Beta HCG ( test) Ql (U) Negative NEGATIVE [employer] Phone: Comment on above: Specimens with hCG l evels near the threshold of the test (25 mIU/mL) may give a negative or indeterminate result. In such cases, another test should be performed with a new specimen in 48-72 hours. If early is suspected clinically in this setting, correlation with quantitative serum b-hCG level is suggested. [id number] 01-04-2021 SARS-CoV-2 (COVID-19) RNA JOSÉ MIGUEL+probe Ql (Unsp spec) Normal [facility] Comment on above: Performed By: #### C OVID #### [facility] [address] [place] [address] Control Room Tender: Wei Reyna MD [address] [id number] Control Room Tender: Harpal Adair MD SARS-CoV-2 (COVID-19) RNA JOSÉ MIGUEL+probe Ql (Unsp spec) Not detected Normal NOTDET [facility] Comment on above: Result Comment: [...] this assay. Fact sheet for Healthcare Providers: https://www.fda.gov/media/326050/download Fact sheet for Patients: https://www.fda.gov/media/566063/download METHODOLOGY: RT-PCR Performed By: #### C OVID #### [facility] [address] [place] [address] Control Room Tender: Wei Reyna MD [address] [id number] Control Room Tender: Harpal Adair MD [id number] 01-03-2021 SARS-CoV-2 (COVID-19) RNA JOSÉ MIGUEL+probe Ql (Unsp spec) .NASOPHARYNGEAL SWAB Normal [facility] Comment on above: Performed By: #### C OVID #### [facility] [address] [place] [address] Control Room Tender: Wei Reyna MD [address] [id number] Control Room Tender: Harpal Adair MD Nicotine, BloodOrdered By: Jose Vickers on 12-26-2020 [id number] <2 ng/mL [employer] Work Phone: Cotinine <2 ng/mL [employer] Phone: Nicotine <2 ng/mL [employer] Phone: Comment on above: (NOTE) Consistent with [...] developed and its performance characteristics determined by [facility]. It has not been cleared or approved by the US Food and Drug Administration. This test was performed in a CLIA certified laboratory and is intended for clinical purposes. Performed By: [facility] [address] [place] [id number] [employer] Clerk: Brissa Bonilla MD EKG 12 LeadOrdered By: Enmanuel Vickers on 12-25-2020 Atrial Rate 70 BPM [employer] Phone: P Rippey 20 degrees [employer] Phone: P-R Interval 176 ms [employer] Phone: Q-T Interval 414 ms [employer] Phone: QRS Duration 88 ms [employer] Phone: QTc Calculation (Bazett) 447 ms [employer] Phone: R Rippey 7 degrees [employer] Phone: T Rippey 8 degrees [employer] Phone: Ventricular Rate 70 BPM [employer] Work Phone: Normal sinus rhythm Normal ECG No previous ECGs available [employer] Phone: Dario, [facility] Incoming E kg Results From [place] - 12/25/2020 12:47 PM EDT Normal sinus rhythm Normal ECG No previous ECGs available [employer] Phone: APTTOrdered By: Gamaliel horvath on 12-24-2020 aPTT Coag (Bld) [Time] 23.1 s [facility]: Comment on above: IV Heparin Therapy Range: 48.6-77.8 Basic Metabolic PanelOrdered By: Gamaliel Vickers on 12-24-2020 Anion gap [Moles/Vol] 10 mmol/L 9 - 17 mmol/L [employer] Phone: Calcium [Mass/Vol] 9.4 mg/dL 8.6 - 10. 4 mg/dL [employer] Phone: Chloride [Moles/Vol] 106 mmol/L 98 - 10 7 mmol/L [employer] Phone: CO2 [Moles/Vol] 23 mmol/L 20 - 31 mmol/L [employer] Phone: Creatinine [Mass/Vol] 0.56 mg/dL 0.50 - 0.90 mg/dL [employer] Phone: GFR >60 >60 mL/min [employer] Phone: GFR Non- >60 >60 mL/min [employer] Phone: GFR/1.73 sq M.predicted MDRD (S/P/Bld) [Vol rate/Area] [employer] Phone: Comment on above: Average GFR for 30-3 9 years old: 107 mL/min/1.73sq m Chronic Kidney Disease: <60 mL/min/1.73sq m Kidney failure: <15 mL/min/1.73sq m eGFR calculated using average adult body mass. Additional eGFR calculator available at: http://www.[employer]/multiple_crcl_2012.htm GFR/1.73 sq M.predicted MDRD (S/P/Bld) [Vol rate/Area] NOT REPORTED [employer] Phone: Glucose [Mass/Vol] 86 mg/dL 70 - 99 mg/dL [employer] Phone: Potassium [Moles/Vol] 3.8 mmol/L 3.7 - 5.3 mmol/L [employer] Phone: Sodium [Moles/Vol] 139 mmol/L 135 - 144 mmol/L [employer] Phone: Urea nitrogen (BldV) [Mass/Vol] 12 mg/dL 6 - 20 mg/dL [employer] Phone: Urea nitrogen/Creatinine (Bld) [Mass ratio] NOT REPORTED [employer] Phone: CBCOrdered By: Gamaliel castillo on 12-24-2020 Hematocrit (Bld) [Volume fraction] 41.2 % 36.3 - 47.1 % [employer] Phone: Hemoglobin.gastrointes tinal spec 1 Ql (Stl) 13.4 g/dL 11.9 - 15.1 g/dL [employer] Phone: MCH (RBC) [Entitic mass] 30.5 pg 25.2 - 33.5 pg [employer] Phone: MCHC (RBC) [Mass/Vol] 32.5 g/dL 28.4 - 34.8 g/dL [employer] Phone: MCV (RBC) [Entitic vol] 93.6 fL 82.6 - 102.9 fL [employer] Phone: NRBC Automated 0.0 0.0 per 100 WBC [employer] Phone: Platelet distribution width (Bld) [Ratio] 13.2 % 11.8 - 14.4 % [employer] Phone: Platelet mean volume (Bld) [Entitic vol] 10.7 fL 8.1 - 13.5 fL [employer] Phone: Platelets (Bld) [#/Vol] 391 10*3/uL [employer] Phone: RBC (Bld) [#/Vol] 4.40 10*6/uL 3.95 - 5.1 1 m/uL [employer] Phone: WBC (Bld) [#/Vol] 8.5 10*3/uL [employer] Phone: Protime-INROrdered By: Enmanuel Vickers on 12-24-2020 INR Coag (Bld) [Relative time] 0.9 {INR} [employer] Phone: Comment on above: Therapeutic Range: Moderate Anticoagulant Intensity: INR = 2.0-3.0 High Anticoagulant Intensity: INR = 2.5-3.5 PT Coag (PPP) [Time] 10 s [employer] Phone: XR CHEST (2 VW)on 12-24-2020 No acute cardiopulmonary findings [employer] Phone: EXAMINATION: TWO XRA Y VIEWS OF THE CHEST 12/24/2020 11:24 am COMPARISON: None. HISTORY: ORDERING SYSTEM PROVIDED HISTORY: preop gastric bypass [employer] TECHNOLOGIST PROVIDED HISTORY: preop gastric bypass [employer] Reason for Exam: no chest complaints FINDINGS: Normal cardiopericardial silhouette There are no significant mediastinal, pleural, parenchymal or osseous findings [facility] Phone: Dario, Mhpn Incoming Radiant Results From Xunlei/Book&Table - 12/24/2020 11:30 AM EDT EXAMINATION: TWO XRAY VIEWS OF THE CHEST 12/24/2020 11:24 am COMPARISON: None. HISTORY: ORDERING SYSTEM PROVIDED HISTORY: preop gastric bypass [employer] TECHNOLOGIST PROVIDED HISTORY: preop gastric bypass Tian En Y Reason for Exam: no chest complaints FINDINGS: Normal cardiopericardial silhouette There are no significant mediastinal, pleural, parenchymal or osseous findings IMPRESSION: No acute cardiopulmonary findings [facility] Phone: XR CHEST (2 VW)Ordered By: Jose Vickers on 12-24-2020 No acute cardiopulmonary findings [facility] Phone: EXAMINATION: TWO XRA Y VIEWS OF THE CHEST 12/24/2020 11:24 am COMPARISON: None. HISTORY: ORDERING SYSTEM PROVIDED HISTORY: preop gastric bypass Tian [employer] Y TECHNOLOGIST PROVIDED HISTORY: preop gastric bypass Tian En Y Reason for Exam: no chest complaints FINDINGS: Normal cardiopericardial silhouette There are no significant mediastinal, pleural, parenchymal or osseous findings [facility] Phone: Dario, Mhpn Incoming Radiant Results From [facility]/Snip2Codes - 12/24/2020 11:30 AM EDT EXAMINATION: TWO XRAY VIEWS OF THE CHEST 12/24/2020 11:24 am COMPARISON: None. HISTORY: ORDERING SYSTEM PROVIDED HISTORY: preop gastric bypass Tian [employer] Y TECHNOLOGIST PROVIDED HISTORY: preop gastric bypass Tian En Y Reason for Exam: no chest complaints FINDINGS: Normal cardiopericardial silhouette There are no significant mediastinal, pleural, parenchymal or osseous findings IMPRESSION: No acute cardiopulmonary findings [facility] Phone: [place] UGI W AIR CONTRASTon 10-15 Intermittent significant spontaneous GE reflux. Otherwise unremarkable double-contrast upper GI and esophagram. [facility] Phone: EXAMINATION: DOUBLE CONTRAST UPPER GI SERIES [...] The duodenal bulb and sweep are normal. [facility] Phone: Dario, pn Incoming Radiant Results From [employer] - 11/01/2020 5:21 PM EST EXAMINATION: DOUBLE [...] Otherwise unremarkable double-contrast upper GI and esophagram. [facility] Phone: COVID-19on 09-25-2020 SARS-CoV-2 [place], [place] SARS-CoV-2 Not Detected Not Detected [place], [place] Comment on above: The specimen is NEGATIVE for SARS-CoV-2, the novel coronavirus associated with COVID-19. A negative result does not rule out COVID-19. Heide SARS-CoV-2 for use on the [employer] [facility] is a real-time RT-PCR test intended [...] this assay. Fact sheet for Healthcare Providers: https://www.fda.gov/media/463547/download Fact sheet for Patients: https://www.fda.gov/media/224333/download METHODOLOGY: RT-PCR SARS-CoV-2, Rapid [place], [place] Source .NASOPHARYNGEAL SWAB [place], [place] Vital Signs Date Time Vital Sign Value Performing Clinician Facility 04-13-2025 09:41-0400 Body height 170.2 cm Aaliyah Itzkowitz DO Work Phone: [facility] 04-13-2025 09:41-0400 Body mass index (BMI) [Ratio] 30.54 kg/m2 Aaliyah Itzkowitz DO Work Phone: [facility] 04-13-2025 09:41-0400 Body weight 88.45 kg Aaliyah Itzkowitz DO Work Phone: [facility] 04-13-2025 09:41-0400 Diastolic blood pressure 84 mm[Hg] Aaliyah Itzkowitz DO Work Phone: [facility] 04-13-2025 09:41-0400 Systolic blood pressure 118 mm[Hg] Aaliyah Itzkowitz DO Work Phone: [facility] 04-09-2025 10:45-0400 Body mass index (BMI) [Ratio] 32.44 kg/m2 Shazia Barahonaion OVER SHORT AND DAMAGE CLERK Work Phone: [facility] 04-09-2025 10:45-0400 Body temperature 96.1 [degF] Shazia Barahonaion OVER SHORT AND DAMAGE CLERK Work Phone: [facility] 04-09-2025 10:45-0400 Body weight 91.17 kg Shazia Elise OVER SHORT AND DAMAGE CLERK Work Phone: [facility] 04-09-2025 10:45-0400 Diastolic blood pressure 82 mm[Hg] Shazia Elise OVER SHORT AND DAMAGE CLERK Work Phone: [facility] 04-09-2025 10:45-0400 Heart rate 95 /min Shazia Barahonaion OVER SHORT AND DAMAGE CLERK Work Phone: [facility] 04-09-2025 10:45-0400 SaO2% (BldA) [Mass fraction] 98 % Shazia Barahonaion OVER SHORT AND DAMAGE CLERK Work Phone: [facility] 04-09-2025 10:45-0400 Systolic blood pressure 118 mm[Hg] Shazia Barahonaion OVER SHORT AND DAMAGE CLERK Work Phone: [facility] 01-27-2025 10:12-0400 Diastolic blood pressure 91 mm[Hg] Orlando Kate [facility] 01-27-2025 10:12-0400 Heart rate 86 /min Orlando Kate [facility] 01-27-2025 10:12-0400 Mean blood pressure 106 mm[Hg] Orlando Kate [facility] 01-27-2025 10:12-0400 Respiratory rate 14 /min Orlando Kate [facility] 01-27-2025 10:12-0400 Systolic blood pressure 136 mm[Hg] Orlando Kate [facility] 01-24-2025 09:59-0400 Heart rate 76 /min Babar Mayers [facility] 01-24-2025 09:59-0400 SaO2% (BldA) [Mass fraction] 100 % Babar Mayers [facility] 01-24-2025 09:59-0400 Diastolic blood pressure 88 mm[Hg] Babar Mayers [facility] 01-24-2025 09:59-0400 Mean blood pressure 104 mm[Hg] Babar Mayers [facility] 01-24-2025 09:59-0400 Systolic blood pressure 137 mm[Hg] Babar Mayers [facility] 01-24-2025 09:54-0400 Diastolic blood pressure 80 mm[Hg] Babar Mayers [facility] 01-24-2025 09:54-0400 Heart rate 79 /min Babar Mayers [facility] 01-24-2025 09:54-0400 Respiratory rate 14 /min Babar Mayers [facility] 01-24-2025 09:54-0400 SaO2% (BldA) [Mass fraction] 100 % Babar Mayers [facility] 01-24-2025 09:54-0400 Systolic blood pressure 141 mm[Hg] Eckert Talib [facility] 01-24-2025 08:35-0400 Heart rate 79 /min Babar Mayers [facility] 01-24-2025 08:35-0400 SaO2% (BldA) [Mass fraction] 99 % Eckert Talib [facility] 01-24-2025 08:34-0400 Body temperature 97.88 [degF] Babar Mayers [facility] 01-24-2025 08:34-0400 Diastolic blood pressure 91 mm[Hg] Babar Mayers [facility] 01-24-2025 08:34-0400 Mean blood pressure 105 mm[Hg] Babar Mayers [facility] 01-24-2025 08:34-0400 Systolic blood pressure 134 mm[Hg] Babar Mayers [facility] 01-24-2025 08:32-0400 Respiratory rate 16 /min Babar Mayers [facility] 01-13-2025 08:15-0400 Diastolic blood pressure 95 mm[Hg] Orlando Kate [facility] 01-13-2025 08:15-0400 Heart rate 79 /min Orlando Kate [facility] 01-13-2025 08:15-0400 Mean blood pressure 108 mm[Hg] Orlando Kate [facility] 01-13-2025 08:15-0400 Respiratory rate 16 /min Orlando Kate [facility] 01-13-2025 08:15-0400 Systolic blood pressure 133 mm[Hg] Orlando Kate [facility] 12-16-2024 10:31-0400 Body height 170.18 cm [facility] 12-16-2024 10:31-0400 Body weight 83.91 kg [facility] 11-28-2024 10:23-0400 Heart rate 64 /min Babar Mayers [facility] 11-28-2024 10:23-0400 SaO2% (BldA) [Mass fraction] 100 % Babar Mayers [facility] 11-28-2024 10:23-0400 Diastolic blood pressure 86 mm[Hg] Babar Mayers [facility] 11-28-2024 10:23-0400 Mean blood pressure 101 mm[Hg] Babar Mayers [facility] 11-28-2024 10:23-0400 Systolic blood pressure 133 mm[Hg] Babar Mayers [facility] 11-28-2024 10:23-0400 Respiratory rate 16 /min Babar Mayers [facility] 11-28-2024 10:19-0400 Diastolic blood pressure 97 mm[Hg] Babar Mayers [facility] 11-28-2024 10:19-0400 Heart rate 81 /min Babar Mayers [facility] 11-28-2024 10:19-0400 SaO2% (BldA) [Mass fraction] 97 % Babar Mayers [facility] 11-28-2024 10:19-0400 Systolic blood pressure 137 mm[Hg] Babar Mayers [facility] 11-28-2024 09:10-0400 Heart rate 77 /min Babar Mayers [facility] 11-28-2024 09:10-0400 SaO2% (BldA) [Mass fraction] 99 % Babar Mayers [facility] 11-28-2024 09:09-0400 Diastolic blood pressure 97 mm[Hg] Babar Mayers [facility] 11-28-2024 09:09-0400 Mean blood pressure 115 mm[Hg] Babar Mayers [facility] 11-28-2024 09:09-0400 Systolic blood pressure 149 mm[Hg] Babar Mayers [facility] 11-28-2024 09:09-0400 Body temperature 98.06 [degF] Babar Mayers [facility] 11-28-2024 09:06-0400 Respiratory rate 20 /min Babar Mayers [facility] 11-15-2024 13:35-0500 Diastolic blood pressure 93 mm[Hg] Orlando Kate [facility] 11-15-2024 13:35-0500 Heart rate 90 /min Orlando Kate [facility] 11-15-2024 13:35-0500 Mean blood pressure 106 mm[Hg] Orlando Kate [facility] 11-15-2024 13:35-0500 Respiratory rate 14 /min Orlando Kate [facility] 11-15-2024 13:35-0500 Systolic blood pressure 131 mm[Hg] Orlando Kate [facility] 10-18-2024 08:08-0500 Body temperature 98.24 [degF] [facility] 10-18-2024 08:08-0500 Diastolic blood pressure 88 mm[Hg] [facility] 10-18-2024 08:08-0500 Heart rate 86 /min [facility] 10-18-2024 08:08-0500 Respiratory rate 16 /min [facility] 10-18-2024 08:08-0500 SaO2% (BldA) [Mass fraction] 100 % [facility] 10-18-2024 08:08-0500 Systolic blood pressure 123 mm[Hg] [facility] 09-21-2024 11:17-0500 Body mass index (BMI) [Ratio] 30.12 kg/m2 Christopher Suzie DO Work Phone: [facility] 09-21-2024 11:17-0500 Body weight 84.64 kg Christopher Suzie DO Work Phone: [facility] 09-21-2024 11:17-0500 Diastolic blood pressure 84 mm[Hg] Christopher Suzie DO Work Phone: [facility] 09-21-2024 11:17-0500 Heart rate 80 /min Christopher Suzie DO Work Phone: [facility] 09-21-2024 11:17-0500 SaO2% (BldA) [Mass fraction] 98 % Christopher Suzie DO Work Phone: [facility] 09-21-2024 11:17-0500 Systolic blood pressure 118 mm[Hg] Christopher Suzie DO Work Phone: [facility] 09-15-2024 16:36-0500 Diastolic blood pressure 82 mm[Hg] [facility] 09-15-2024 16:36-0500 Heart rate 55 /min [facility] 09-15-2024 16:36-0500 Respiratory rate 23 /min [facility] 09-15-2024 16:36-0500 SaO2% (BldA) [Mass fraction] 100 % [facility] 09-15-2024 16:36-0500 Systolic blood pressure 147 mm[Hg] [facility] 09-15-2024 13:29-0500 Body height 170.18 cm [facility] 09-15-2024 13:29-0500 Body temperature 98 [degF] [facility] 09-15-2024 13:29-0500 Body weight 89 kg [facility] 09-13-2024 09:40-0500 Body height 170.[address] 09-13-2024 09:40-0500 Body mass index (BMI) [Ratio] 29.44 kg/m2 [address] 09-13-2024 09:40-0500 Body weight 85.[address] 09-13-2024 09:40-0500 Diastolic blood pressure 76 mm[Hg] [address] 09-13-2024 09:40-0500 Systolic blood pressure 118 mm[Hg] [address] 08-08-2024 15:29-0500 Diastolic blood pressure 70 mm[Hg] Aleah Howard MD Work Phone: [facility] 08-08-2024 15:29-0500 Systolic blood pressure 110 mm[Hg] Aleah Howard MD Work Phone: [facility] 08-08-2024 15:28-0500 Body height 170.2 cm Aleah Howard MD Work Phone: [facility] 08-08-2024 15:28-0500 Body mass index (BMI) [Ratio] 29.44 kg/m2 Aleah Howard MD Work Phone: [facility] 08-08-2024 15:28-0500 Body weight 85.28 kg Aleah Howard MD Work Phone: [facility] 08-08-2024 15:28-0500 Heart rate 75 /min Aleah Howard MD Work Phone: [facility] 07-25-2024 15:08-0500 Body mass index (BMI) [Ratio] 28.94 kg/m2 Tevin Ledy SN[place]DEN Work Phone: [facility] 07-25-2024 15:08-0500 Body weight 83.8 kg Tevin Carson DO Work Phone: [facility] 07-25-2024 15:08-0500 Diastolic blood pressure 72 mm[Hg] Tevin Carson DO Work Phone: [facility] 07-25-2024 15:08-0500 Heart rate 67 /min Tevin Ledy DO Work Phone: [facility] 07-25-2024 15:08-0500 SaO2% (BldA) [Mass fraction] 100 % Tevin Carson DO Work Phone: [facility] 07-25-2024 15:08-0500 Systolic blood pressure 122 mm[Hg] Tevin Carson DO Work Phone: [facility] 07-04-2024 11:01-0400 Body height 170.2 cm Fatuma Tyler APRN.ENERGY OPERATIONS VICE PRESIDENT Work Phone: [facility] 07-04-2024 11:01-0400 Body mass index (BMI) [Ratio] 28.98 kg/m2 Fatuma Tyler AUTOMOTIVE INTERNET SALES CONSULTANT.ENERGY OPERATIONS VICE PRESIDENT Work Phone: [facility] 07-04-2024 11:01-0400 Body weight 83.92 kg Fatuma Tyler APRN.ENERGY OPERATIONS VICE PRESIDENT Work Phone: [facility] 07-01-2024 11:01-0400 Body height 170.2 cm Tevin Carson DO Work Phone: [facility] 07-01-2024 11:01-0400 Body mass index (BMI) [Ratio] 29.8 kg/m2 Tevin Carson DO Work Phone: [facility] 07-01-2024 11:01-0400 Body weight 86.3 kg Tevin Carson DO Work Phone: [facility] 07-01-2024 11:01-0400 Diastolic blood pressure 59 mm[Hg] Tevin Carson DO Work Phone: [facility] 07-01-2024 11:01-0400 Heart rate 72 /min Tevin Carson DO Work Phone: [facility] 07-01-2024 11:01-0400 SaO2% (BldA) [Mass fraction] 99 % Tevin Carson DO Work Phone: [facility] 07-01-2024 11:01-0400 Systolic blood pressure 101 mm[Hg] Tevin Carson DO Work Phone: [facility] 03-08-2024 15:02-0400 Diastolic blood pressure 78 mm[Hg] Alexis Shukla [facility] 03-08-2024 15:02-0400 Heart rate 65 /min Alexis Shukla [facility] 03-08-2024 15:02-0400 Mean blood pressure 89 mm[Hg] Alexis Shukla [facility] 03-08-2024 15:02-0400 SaO2% (BldA) [Mass fraction] 100 % Alexis Lopeze [facility] 03-08-2024 15:02-0400 Systolic blood pressure 110 mm[Hg] Alexis Lopeze [facility] 03-08-2024 14:00-0400 SaO2% (BldA) [Mass fraction] 99 % Alexis Shukla [facility] 03-08-2024 13:37-0400 Body temperature 98.42 [degF] Alexis Shukla [facility] 03-08-2024 13:37-0400 Diastolic blood pressure 82 mm[Hg] Alexis Shukla [facility] 03-08-2024 13:37-0400 Heart rate 70 /min Alexis Shukla [facility] 03-08-2024 13:37-0400 Respiratory rate 18 /min Alexis Shukla [facility] 03-08-2024 13:37-0400 SaO2% (BldA) [Mass fraction] 100 % Alexis Shukla [facility] 03-08-2024 13:37-0400 Systolic blood pressure 126 mm[Hg] Alexis Shukla [facility] 03-08-2024 13:14-0400 Body temperature 98.24 [degF] Alexis Shukla [facility] 03-08-2024 13:14-0400 Diastolic blood pressure 87 mm[Hg] Alexis Shukla [facility] 03-08-2024 13:14-0400 Heart rate 67 /min Alexis Shukla [facility] 03-08-2024 13:14-0400 Respiratory rate 16 /min Alexis Shukla [facility] 03-08-2024 13:14-0400 Systolic blood pressure 135 mm[Hg] Alexis Shukla [facility] 03-08-2024 08:06-0400 Body height 170.2 cm Elia Baires DO Work Phone: [facility] 03-08-2024 08:06-0400 Body mass index (BMI) [Ratio] 30.9 kg/m2 Elia Baires DO Work Phone: [facility] 03-08-2024 08:06-0400 Body weight 89.5 kg Elia Baires DO Work Phone: [facility] 03-08-2024 08:06-0400 Diastolic blood pressure 72 mm[Hg] Elia Baires DO Work Phone: [facility] 03-08-2024 08:06-0400 Heart rate 82 /min Elia Baires DO Work Phone: [facility] 03-08-2024 08:06-0400 SaO2% (BldA) [Mass fraction] 100 % Elia Baires DO Work Phone: [facility] 03-08-2024 08:06-0400 Systolic blood pressure 114 mm[Hg] Elia Baires DO Work Phone: [facility] 01-04-2024 09:28-0400 Body height 170.2 cm Elia Baires DO Work Phone: [facility] 01-04-2024 09:28-0400 Body mass index (BMI) [Ratio] 31.96 kg/m2 Elia Baires DO Work Phone: [facility] 01-04-2024 09:28-0400 Body weight 92.55 kg Elia Baires DO Work Phone: [facility] 01-04-2024 09:28-0400 Diastolic blood pressure 86 mm[Hg] Elia Baires DO Work Phone: [facility] 01-04-2024 09:28-0400 Heart rate 92 /min Elia Baires DO Work Phone: [facility] 01-04-2024 09:28-0400 SaO2% (BldA) [Mass fraction] 97 % Elia Baires DO Work Phone: [facility] 01-04-2024 09:28-0400 Systolic blood pressure 123 mm[Hg] Elia Baires DO Work Phone: [facility] 12-31-2023 11:17-0400 Heart rate 76 /min DO Jennie Durand Work Phone: [facility] 12-31-2023 11:14-0400 Body temperature 98.2 [degF] DO Jennie Durand Work Phone: [facility] 12-31-2023 11:14-0400 Diastolic blood pressure 73 mm[Hg] DO Jennie Durand Work Phone: [facility] 12-31-2023 11:14-0400 Respiratory rate 18 /min DO Jennie Durand Work Phone: [facility] 12-31-2023 11:14-0400 SaO2% (BldA) [Mass fraction] 97 % DO Jennie Durand Work Phone: [facility] 12-31-2023 11:14-0400 Systolic blood pressure 138 mm[Hg] DO Jennie Durand Work Phone: [facility] 12-31-2023 11:13-0400 Body height 170.18 cm DO Jennie Durand Work Phone: [facility] 12-31-2023 11:13-0400 Body weight 89.35 kg DO Jennie Durand Work Phone: [facility] 12-24-2023 11:58-0400 Body height 170.18 cm DO Jennie Durand Work Phone: [facility] 12-24-2023 11:58-0400 Body temperature 97.8 [degF] DO Jennie Durand Work Phone: [facility] 12-24-2023 11:58-0400 Body weight 89 kg DO Jennie Durand Work Phone: [facility] 12-24-2023 11:58-0400 Diastolic blood pressure 91 mm[Hg] DO Jennie Durand Work Phone: [facility] 12-24-2023 11:58-0400 Heart rate 85 /min DO Jennie Durand Work Phone: [facility] 12-24-2023 11:58-0400 Respiratory rate 15 /min DO Jennie Durand Work Phone: [facility] 12-24-2023 11:58-0400 SaO2% (BldA) [Mass fraction] 100 % DO Jennie Durand Work Phone: [facility] 12-24-2023 11:58-0400 Systolic blood pressure 137 mm[Hg] DO Jennie Durand Work Phone: [facility] 12-10-2023 12:35-0400 Heart rate 70 /min DO Jennie Durand Work Phone: [facility] 12-10-2023 12:35-0400 Respiratory rate 16 /min DO Jennie Durand Work Phone: [facility] 12-10-2023 12:35-0400 SaO2% (BldA) [Mass fraction] 98 % DO Jennie Durand Work Phone: [facility] 12-10-2023 12:08-0400 Body height 170.18 cm DO Jennie Durand Work Phone: [facility] 12-10-2023 12:08-0400 Body temperature 98 [degF] DO Jennie Durand Work Phone: [facility] 12-10-2023 12:08-0400 Body weight 89.8 kg DO Jennie Durand Work Phone: [facility] 12-10-2023 12:08-0400 Diastolic blood pressure 76 mm[Hg] DO Jennie Durand Work Phone: [facility] 12-10-2023 12:08-0400 Systolic blood pressure 123 mm[Hg] DO Jennie Durand Work Phone: [facility] 09-18-2023 08:49-0500 Diastolic blood pressure 72 mm[Hg] Gamaliel Vickers DO Work Phone: [employer] 09-18-2023 08:49-0500 Heart rate 58 /min Gamaliel Vickers DO Work Phone: [facility] Assembly 09-18-2023 08:49-0500 Respiratory rate 18 /min Gamaliel Vickers DO Work Phone: [facility] General Assembly 09-18-2023 08:49-0500 SaO2% (BldA) [Mass fraction] 100 % Gaamliel Vickers DO Work Phone: [facility] General Assembly 09-18-2023 08:49-0500 Systolic blood pressure 111 mm[Hg] Gamaliel Vickers DO Work Phone: [facility] General Assembly 09-18-2023 08:24-0500 Body temperature 97.11 [degF] Gamaliel Vickers DO Work Phone: [facility] General Assembly 09-18-2023 07:23-0500 Body height 170.2 cm Gamaliel Vickers DO Work Phone: [facility] General Assembly 09-18-2023 07:23-0500 Body mass index (BMI) [Ratio] 31.79 kg/m2 Gamaliel Vickers DO Work Phone: [facility] Assembly 09-18-2023 07:23-0500 Body weight 92.08 kg Gamaliel Vickers DO Work Phone: [facility] Assembly 08-15-2023 13:37-0500 Diastolic blood pressure 69 mm[Hg] DO Jennie Durand Work Phone: [facility] 08-15-2023 13:37-0500 Heart rate 70 /min DO Jennie Durand Work Phone: [facility] 08-15-2023 13:37-0500 Respiratory rate 18 /min DO Jennie Durand Work Phone: [facility] 08-15-2023 13:37-0500 SaO2% (BldA) [Mass fraction] 99 % DO Jennie Durand Work Phone: [facility] 08-15-2023 13:37-0500 Systolic blood pressure 107 mm[Hg] DO Jennie Durand Work Phone: [facility] 08-15-2023 11:29-0500 Body height 170.18 cm DO Jennie Durand Work Phone: [facility] 08-15-2023 11:29-0500 Body temperature 98.2 [degF] DO Jennie Durand Work Phone: [facility] 08-15-2023 11:29-0500 Body weight 86.18 kg DO Jennie Durand Work Phone: [facility] 08-14-2023 16:43-0500 Body height 170.18 cm DO Jennie Durand Work Phone: [facility] 08-14-2023 16:43-0500 Body temperature 98.2 [degF] DO Jennie Durand Work Phone: [facility] 08-14-2023 16:43-0500 Body weight 88.6 kg DO Jennie Durand Work Phone: [facility] 08-14-2023 16:43-0500 Diastolic blood pressure 66 mm[Hg] DO Jennie Durand Work Phone: [facility] 08-14-2023 16:43-0500 Heart rate 80 /min DO Jennie Durand Work Phone: [facility] 08-14-2023 16:43-0500 Respiratory rate 18 /min DO Jennie Durand Work Phone: [facility] 08-14-2023 16:43-0500 SaO2% (BldA) [Mass fraction] 98 % DO Jennie Durand Work Phone: [facility] 08-14-2023 16:43-0500 Systolic blood pressure 118 mm[Hg] DO Jennie Durand Work Phone: [phone] [place] [address] 08-13-2023 11:15-0500 Body height 170.18 cm Imad Asaad Other [employer] Other 08-13-2023 11:15-0500 Body mass index (BMI) [Ratio] 30.54 kg/m2 Imad Asaad Other [employer] Other 08-13-2023 11:15-0500 Body weight 88.45 kg Imad Asaad Other [employer] Other 08-13-2023 11:15-0500 Diastolic blood pressure 84 mm[Hg] Imad Asaad Other [employer] Other 08-13-2023 11:15-0500 Systolic blood pressure 133 mm[Hg] Imad Asaad Other [employer] Other 07-08-2023 12:05-0400 Body height 170.18 cm Ania Tegan Other [employer] Other 07-08-2023 12:05-0400 Body mass index (BMI) [Ratio] 30.22 kg/m2 Ania Tegan Other [employer] Other 07-08-2023 12:05-0400 Body temperature 99 [degF] Ania Tegan Other [employer] Other 07-08-2023 12:05-0400 Body weight 87.54 kg Ania Tegan Other [employer] Other 07-08-2023 12:05-0400 Diastolic blood pressure 64 mm[Hg] Ania Tegan Other [employer] Other 07-08-2023 12:05-0400 Respiratory rate 19 /min Ania Javed Other [employer] Other 07-08-2023 12:05-0400 SaO2% (BldA) [Mass fraction] 98 % Ania Javed Other [employer] Other 07-08-2023 12:05-0400 Systolic blood pressure 110 mm[Hg] Ania Javed Other [employer] Other 07-03-2023 11:05-0400 Diastolic blood pressure 80 mm[Hg] DO Jennie Durand Work Phone: [facility] 07-03-2023 11:05-0400 Heart rate 78 /min DO Jennie Durand Work Phone: [facility] 07-03-2023 11:05-0400 Respiratory rate 16 /min DO Jennie Durand Work Phone: [facility] 07-03-2023 11:05-0400 SaO2% (BldA) [Mass fraction] 99 % DO Jennie [place]and Work Phone: [facility] 07-03-2023 11:05-0400 Systolic blood pressure 119 mm[Hg] DO Jennie Durand Work Phone: [facility] 07-03-2023 10:10-0400 Body height 170.18 cm DO Jennie Durand Work Phone: [facility] 07-03-2023 10:10-0400 Body temperature 98.7 [degF] DO Jennie Durand Work Phone: [facility] 07-03-2023 10:10-0400 Body weight 86.9 kg DO Jennie Durand Work Phone: [facility] 07-02-2023 14:06-0400 Body temperature 98.06 [degF] Bakari Henrik [facility] 07-02-2023 14:06-0400 Diastolic blood pressure 78 mm[Hg] Bakari Henrik [facility] 07-02-2023 14:06-0400 Heart rate 91 /min Bakari Henrik [facility] 07-02-2023 14:06-0400 Respiratory rate 18 /min Bakari Henrik [facility] 07-02-2023 14:06-0400 SaO2% (BldA) [Mass fraction] 100 % Bakari Henrik [facility] 07-02-2023 14:06-0400 Systolic blood pressure 121 mm[Hg] Bakari Henrik [facility] 01-15-2023 13:30-0400 Diastolic blood pressure 85 mm[Hg] Bakari Henrik [facility] 01-15-2023 13:30-0400 Heart rate 71 /min Bakari Henrik [facility] 01-15-2023 13:30-0400 Mean blood pressure 98 mm[Hg] Bakari Henrik [facility] 01-15-2023 13:30-0400 Respiratory rate 18 /min Bakari Henrik [facility] 01-15-2023 13:30-0400 SaO2% (BldA) [Mass fraction] 100 % Bakari Henrik [facility] 01-15-2023 13:30-0400 Systolic blood pressure 125 mm[Hg] Bakari Henrik [facility] 01-15-2023 12:30-0400 Diastolic blood pressure 99 mm[Hg] Bakari Henrik [facility] 01-15-2023 12:30-0400 Heart rate 78 /min Bakari Chester [facility] 01-15-2023 12:30-0400 Mean blood pressure 107 mm[Hg] Bakari Henrik [facility] 01-15-2023 12:30-0400 Respiratory rate 18 /min Bakari Chester [facility] 01-15-2023 12:30-0400 SaO2% (BldA) [Mass fraction] 100 % Bakari Chester [facility] 01-15-2023 12:30-0400 Systolic blood pressure 122 mm[Hg] Bakari Chester [facility] 01-15-2023 10:50-0400 Body temperature 98.42 [degF] Bakari Chester [facility] 01-15-2023 10:50-0400 Diastolic blood pressure 74 mm[Hg] Bakari Chester [facility] 01-15-2023 10:50-0400 Heart rate 77 /min Bakari Chester [facility] 01-15-2023 10:50-0400 Mean blood pressure 92 mm[Hg] Bakari Henrik [facility] 01-15-2023 10:50-0400 Respiratory rate 17 /min Bakari Chester [facility] 01-15-2023 10:50-0400 SaO2% (BldA) [Mass fraction] 99 % Bakari Henrik [facility] 01-15-2023 10:50-0400 Systolic blood pressure 129 mm[Hg] Bakari Chester [facility] 12-05-2022 13:20-0400 Diastolic blood pressure 74 mm[Hg] Gal Das [facility] 12-05-2022 13:20-0400 Heart rate 58 /min Gal Das [facility] 12-05-2022 13:20-0400 Respiratory rate 18 /min Gal Das [facility] 12-05-2022 13:20-0400 SaO2% (BldA) [Mass fraction] 100 % Gal Das [facility] 12-05-2022 13:20-0400 Systolic blood pressure 110 mm[Hg] Gal Das [facility] 12-05-2022 12:00-0400 Heart rate 54 /min Gal Das [facility] 12-05-2022 12:00-0400 SaO2% (BldA) [Mass fraction] 100 % Gal Das [facility] 12-05-2022 11:59-0400 Diastolic blood pressure 72 mm[Hg] Gal Das [facility] 12-05-2022 11:59-0400 Mean blood pressure 84 mm[Hg] Gal Das [facility] 12-05-2022 11:59-0400 Systolic blood pressure 109 mm[Hg] Gal Das [facility] 12-05-2022 11:53-0400 Body temperature 97.52 [degF] Gal Das [facility] 12-05-2022 11:53-0400 Diastolic blood pressure 73 mm[Hg] Gal Das [facility] 12-05-2022 11:53-0400 Heart rate 59 /min Gal Das [facility] 12-05-2022 11:53-0400 Mean blood pressure 87 mm[Hg] Gal Das [facility] 12-05-2022 11:53-0400 Respiratory rate 14 /min Gal Das [facility] 12-05-2022 11:53-0400 SaO2% (BldA) [Mass fraction] 100 % Gal Das [facility] 12-05-2022 11:53-0400 Systolic blood pressure 115 mm[Hg] Gal Das [facility] 12-05-2022 11:40-0400 Mean blood pressure 80 mm[Hg] Gal Das [facility] 12-05-2022 11:40-0400 Respiratory rate 18 /min Gal Das [facility] 12-05-2022 11:30-0400 Mean blood pressure 90 mm[Hg] Gal Das [facility] 12-05-2022 11:15-0400 Body temperature 97.34 [degF] Gal Das [facility] 12-05-2022 11:10-0400 Respiratory rate 18 /min Gal Das [facility] 12-05-2022 11:05-0400 Respiratory rate 21 /min Gal Das [facility] 12-05-2022 11:00-0400 Respiratory rate 11 /min Gal Das [facility] 12-05-2022 07:15-0400 Mean blood pressure 79 mm[Hg] Gal Das [facility] 12-05-2022 07:15-0400 Body temperature 97.88 [degF] Gal Das [facility] 12-05-2022 07:15-0400 Heart rate 72 /min Gal Das [facility] 12-05-2022 07:12-0400 Mean blood pressure 82 mm[Hg] Gal Das [facility] 11-21-2022 10:44-0500 Diastolic blood pressure 75 mm[Hg] Gal Das [facility] 11-21-2022 10:44-0500 Heart rate 67 /min Gal Das [facility] 11-21-2022 10:44-0500 Mean blood pressure 88 mm[Hg] Gal Das [facility] 11-21-2022 10:44-0500 Systolic blood pressure 112 mm[Hg] Gal Das [facility] 11-21-2022 10:44-0500 Heart rate 71 /min Gal Das [facility] 11-21-2022 10:44-0500 SaO2% (BldA) [Mass fraction] 100 % Gal Das [facility] 11-21-2022 10:43-0500 Diastolic blood pressure 79 mm[Hg] Gal Das [facility] 11-21-2022 10:43-0500 Mean blood pressure 91 mm[Hg] Gal Das [facility] 11-21-2022 10:43-0500 Systolic blood pressure 116 mm[Hg] Gal Das [facility] 11-21-2022 10:43-0500 Respiratory rate 16 /min Gal Das [facility] 11-20-2022 08:09-0500 Body height 170.2 cm Eileen Alvarez MD Work Phone: [facility] 11-20-2022 08:09-0500 Body weight 85.73 kg Eileen Alvarez MD Work Phone: [facility] 11-20-2022 08:09-0500 Diastolic blood pressure 81 mm[Hg] Eileen Alvarez MD Work Phone: [facility] 11-20-2022 08:09-0500 Heart rate 67 /min Eileen Alvarez MD Work Phone: [facility] 11-20-2022 08:09-0500 SaO2% (BldA) [Mass fraction] 100 % Eileen Alvarez MD Work Phone: [facility] 11-20-2022 08:09-0500 Systolic blood pressure 137 mm[Hg] Eileen Alvarez MD Work Phone: [facility] 11-03-2022 12:57-0500 Blood Pressure Location Nakia Mcqueen [facility] 11-03-2022 12:57-0500 Body temperature 98.24 [degF] Nakia Mcqueen [facility] 11-03-2022 12:57-0500 Diastolic blood pressure 80 mm[Hg] Nakia Mcqueen [facility] 11-03-2022 12:57-0500 Heart rate 85 /min Nakia Mcqueen [facility] 11-03-2022 12:57-0500 SaO2% (BldA) [Mass fraction] 98 % Nakia Mcqueen [facility] 11-03-2022 12:57-0500 Systolic blood pressure 104 mm[Hg] Nakia Mcqueen [facility] 09-24-2022 06:57-0500 Blood Pressure Location Aimee Walker [facility] 09-24-2022 06:57-0500 Body temperature 98.24 [degF] Aimee Walker [facility] 09-24-2022 06:57-0500 Diastolic blood pressure 64 mm[Hg] Aimee Walker [facility] 09-24-2022 06:57-0500 Heart rate 77 /min Aimee Walker [facility] 09-24-2022 06:57-0500 SaO2% (BldA) [Mass fraction] 99 % Aimee Walker [facility] 09-24-2022 06:57-0500 Systolic blood pressure 118 mm[Hg] Aimee Walker [facility] 08-22-2022 10:31-0500 Blood Pressure Location [facility] 08-22-2022 10:31-0500 Body temperature 98.06 [degF] [facility] 08-22-2022 10:31-0500 Diastolic blood pressure 76 mm[Hg] [facility] 08-22-2022 10:31-0500 Heart rate 95 /min [facility] 08-22-2022 10:31-0500 SaO2% (BldA) [Mass fraction] 98 % [facility] 08-22-2022 10:31-0500 Systolic blood pressure 110 mm[Hg] [facility] 08-19-2022 09:45-0500 Diastolic blood pressure 69 mm[Hg] DO Jennie Durand Work Phone: [facility] 08-19-2022 09:45-0500 Heart rate 82 /min DO Jennie Durand Work Phone: [facility] 08-19-2022 09:45-0500 Respiratory rate 16 /min DO Jennie Hameede Work Phone: [facility] 08-19-2022 09:45-0500 SaO2% (BldA) [Mass fraction] 95 % DO Jennie Hameede Work Phone: [facility] 08-19-2022 09:45-0500 Systolic blood pressure 104 mm[Hg] DO Jennie Durand Work Phone: [facility] 08-19-2022 07:41-0500 Body height 170.18 cm DO Jenine Hameede Work Phone: [facility] 08-19-2022 07:41-0500 Body weight 83.6 kg DO Jennie Hameede Work Phone: [facility] 08-18-2022 17:26-0500 Body temperature 98.06 [degF] Alexis Shukla [facility] 08-18-2022 17:26-0500 Diastolic blood pressure 83 mm[Hg] Alexis Lopeze [facility] 08-18-2022 17:26-0500 Heart rate 84 /min Alexis Shukla [facility] 08-18-2022 17:26-0500 Respiratory rate 18 /min Alexis Shukla [facility] 08-18-2022 17:26-0500 SaO2% (BldA) [Mass fraction] 98 % Alexis Vazquez [facility] 08-18-2022 17:26-0500 Systolic blood pressure 120 mm[Hg] Alexis Vazquez [facility] 08-12-2022 15:50-0500 Body temperature 97.9 [degF] DO Jennie Hameede Work Phone: [facility] 08-12-2022 15:50-0500 Diastolic blood pressure 83 mm[Hg] DO Jennie Durand Work Phone: [facility] 08-12-2022 15:50-0500 Heart rate 64 /min DO Jennie Durand Work Phone: [facility] 08-12-2022 15:50-0500 Respiratory rate 20 /min DO Jennie Durand Work Phone: [facility] 08-12-2022 15:50-0500 SaO2% (BldA) [Mass fraction] 100 % DO Jennie Durand Work Phone: [facility] 08-12-2022 15:50-0500 Systolic blood pressure 136 mm[Hg] DO Jennie Durand Work Phone: [facility] 08-12-2022 11:00-0500 Body height 170.18 cm DO Jennie Durand Work Phone: [facility] 08-12-2022 06:00-0500 Body weight 88.1 kg DO Jennie Durand Work Phone: [facility] 08-08-2022 10:30-0500 Diastolic blood pressure 76 mm[Hg] Bakari Chester [facility] 08-08-2022 10:30-0500 Heart rate 58 /min Bakari Chester [facility] 08-08-2022 10:30-0500 Mean blood pressure 88 mm[Hg] Bakari Henrik [facility] 08-08-2022 10:30-0500 Respiratory rate 20 /min Bakari Chester [facility] 08-08-2022 10:30-0500 SaO2% (BldA) [Mass fraction] 100 % Bakari Chester [facility] 08-08-2022 10:30-0500 Systolic blood pressure 112 mm[Hg] Bakari Henrik [facility] 08-08-2022 10:00-0500 Diastolic blood pressure 86 mm[Hg] Bakari Hnerik [facility] 08-08-2022 10:00-0500 Heart rate 64 /min Bakari Henrik [facility] 08-08-2022 10:00-0500 Mean blood pressure 97 mm[Hg] Bakari Henrik [facility] 08-08-2022 10:00-0500 Systolic blood pressure 120 mm[Hg] Bakari Henrik [facility] 08-08-2022 09:13-0500 gluc 98 mg/dL Bakari Henrik [facility] 08-08-2022 09:13-0500 gluc Bakari Chester [facility] 08-08-2022 09:06-0500 Body temperature 97.7 [degF] Bakari Henrik [facility] 08-08-2022 09:06-0500 Diastolic blood pressure 87 mm[Hg] Bakari Henrik [facility] 08-08-2022 09:06-0500 Heart rate 79 /min Bakari Henrik [facility] 08-08-2022 09:06-0500 Respiratory rate 18 /min Bakari Henrik [facility] 08-08-2022 09:06-0500 SaO2% (BldA) [Mass fraction] 100 % Bakari Henrik [facility] 08-08-2022 09:06-0500 Systolic blood pressure 127 mm[Hg] Bakari Henrik [facility] 07-21-2022 10:50-0500 Blood Pressure Location Aimee Walker [facility] 07-21-2022 10:50-0500 Body temperature 97.7 [degF] Aimee Valadezell [facility] 07-21-2022 10:50-0500 Diastolic blood pressure 72 mm[Hg] Aimee Valadezell [facility] 07-21-2022 10:50-0500 Heart rate 74 /min Aimee Valadezell [facility] 07-21-2022 10:50-0500 SaO2% (BldA) [Mass fraction] 99 % Aimee Walker [facility] 07-21-2022 10:50-0500 Systolic blood pressure 128 mm[Hg] Aimee Valadezell [facility] 05-13-2022 10:09-0400 Diastolic blood pressure 74 mm[Hg] Alexis Rivers [facility] 05-13-2022 10:09-0400 Heart rate 68 /min Alexis Rivers [facility] 05-13-2022 10:09-0400 Systolic blood pressure 112 mm[Hg] Alexis Rivers [facility] 04-21-2022 09:39-0400 Blood Pressure Location Aimee Walker [facility] 04-21-2022 09:39-0400 Body temperature 98.24 [degF] Aimee Valadezell [facility] 04-21-2022 09:39-0400 Diastolic blood pressure 72 mm[Hg] Aimee Walker [facility] 04-21-2022 09:39-0400 Heart rate 94 /min Aimee Walker [facility] 04-21-2022 09:39-0400 SaO2% (BldA) [Mass fraction] 100 % Aimee Walker [facility] 04-21-2022 09:39-0400 Systolic blood pressure 112 mm[Hg] Aimee Walker [facility] 04-20-2022 14:56-0400 Body temperature 98.24 [degF] [facility] 04-20-2022 14:56-0400 Diastolic blood pressure 72 mm[Hg] [facility] 04-20-2022 14:56-0400 Heart rate 69 /min [facility] 04-20-2022 14:56-0400 Respiratory rate 18 /min [facility] 04-20-2022 14:56-0400 SaO2% (BldA) [Mass fraction] 99 % [facility] 04-20-2022 14:56-0400 Systolic blood pressure 111 mm[Hg] [facility] 04-03-2022 19:17-0400 Hourly Rounding Raymondinn Dokken [facility] 04-03-2022 19:17-0400 Promise to Return Kaylinn Dokken [facility] 04-03-2022 19:15-0400 Diastolic blood pressure 71 mm[Hg] Kaylinn Dokken [facility] 04-03-2022 19:15-0400 Heart rate 63 /min Kaylinn Dokken [facility] 04-03-2022 19:15-0400 Mean blood pressure 82 mm[Hg] Kaylinn Dokken [facility] 04-03-2022 19:15-0400 Respiratory rate 18 /min Kaylinn Dokken [facility] 04-03-2022 19:15-0400 SaO2% (BldA) [Mass fraction] 100 % Kaylinn Dokken [facility] 04-03-2022 19:15-0400 Systolic blood pressure 105 mm[Hg] Kaylinn Dokken [facility] 04-03-2022 17:09-0400 Body temperature 98.06 [degF] Kaylinn Dokken [facility] 04-03-2022 17:09-0400 Diastolic blood pressure 83 mm[Hg] Kaylinn Dokken [facility] 04-03-2022 17:09-0400 Heart rate 87 /min Kaylinn Dokken [facility] 04-03-2022 17:09-0400 Respiratory rate 18 /min Kaylinn Dokken [facility] 04-03-2022 17:09-0400 SaO2% (BldA) [Mass fraction] 99 % Kaylinn Dokken [facility] 04-03-2022 17:09-0400 Systolic blood pressure 119 mm[Hg] Kaylinn Dokken [facility] 02-06-2022 09:06-0400 Blood Pressure Location Aimee Walker [facility] 02-06-2022 09:06-0400 Body temperature 97.52 [degF] Aimee Walker [facility] 02-06-2022 09:06-0400 Diastolic blood pressure 72 mm[Hg] Aieme Walker [facility] 02-06-2022 09:06-0400 Heart rate 81 /min Aimee Walker [facility] 02-06-2022 09:06-0400 SaO2% (BldA) [Mass fraction] 100 % Aimee Walker [facility] 02-06-2022 09:06-0400 Systolic blood pressure 130 mm[Hg] Aimee Walker [facility] 01-29-2022 10:31-0400 Blood Pressure Location Aimee Walker [facility] 01-29-2022 10:31-0400 Body temperature 97.16 [degF] Aimee Walker [facility] 01-29-2022 10:31-0400 Diastolic blood pressure 76 mm[Hg] Aimee Awlker [facility] 01-29-2022 10:31-0400 Heart rate 94 /min Aimee Walker [facility] 01-29-2022 10:31-0400 SaO2% (BldA) [Mass fraction] 98 % Aimee Walker [facility] 01-29-2022 10:31-0400 Systolic blood pressure 118 mm[Hg] Aimee Walker [facility] 02-01-2021 07:15-0400 Body temperature 97.7 [degF] Berry Lawson MD Work Phone: [employer] Work Phone: 02-01-2021 07:15-0400 Diastolic blood pressure 63 mm[Hg] Berry Lawson MD Work Phone: [employer] Work Phone: 02-01-2021 07:15-0400 Heart rate 82 /min Berry Lawson MD Work Phone: [employer] Work Phone: 02-01-2021 07:15-0400 Respiratory rate 18 /min Berry Lawson MD Work Phone: [employer] Work Phone: 02-01-2021 07:15-0400 SaO2% (BldA) [Mass fraction] 98 % Berry Lawson MD Work Phone: [employer] Work Phone: 02-01-2021 07:15-0400 Systolic blood pressure 110 mm[Hg] Berry Lawson MD Work Phone: [employer] Work Phone: 01-30-2021 16:54-0400 Body height 170.2 cm Berry Lawson MD Work Phone: [employer] Work Phone: 01-30-2021 16:54-0400 Body mass index (BMI) [Ratio] 38.53 kg/m2 Berry Lawson MD Work Phone: [employer] Work Phone: 01-30-2021 16:54-0400 Body weight 111.58 kg Berry Lawson MD Work Phone: [employer] Work Phone: 01-30-2021 14:27-0400 Diastolic blood pressure 66 mm[Hg] David Nash MD Work Phone: [employer] Work Phone: 01-30-2021 14:27-0400 Heart rate 93 /min David Nash MD Work Phone: [employer] Work Phone: 01-30-2021 14:27-0400 Respiratory rate 16 /min David Nash MD Work Phone: [employer] Work Phone: 01-30-2021 14:27-0400 SaO2% (BldA) [Mass fraction] 98 % David Nash MD Work Phone: [employer] Work Phone: 01-30-2021 14:27-0400 Systolic blood pressure 107 mm[Hg] David Nash MD Work Phone: [employer] Work Phone: 01-30-2021 09:51-0400 Body temperature 97.2 [degF] David Nash MD Work Phone: [employer] Work Phone: 01-26-2021 09:00-0400 Body temperature 98.2 [degF] Gamaliel Vickers DO Work Phone: [employer] Work Phone: 01-26-2021 09:00-0400 Diastolic blood pressure 77 mm[Hg] Gamaliel Vickers DO Work Phone: [employer] Work Phone: 01-26-2021 09:00-0400 Heart rate 90 /min Gamaliel Vickers [employer] Work Phone: [employer] Work Phone: 01-26-2021 09:00-0400 Respiratory rate 16 /min Gamaliel Vickers [employer] Work Phone: [employer] Phone: 01-26-2021 09:00-0400 SaO2% (BldA) [Mass fraction] 96 % Gamaliel Vickers [employer] Work Phone: [employer] Phone: 01-26-2021 09:00-0400 Systolic blood pressure 111 mm[Hg] Gamaliel Vickers [employer] Work Phone: [employer] Phone: 01-08-2021 07:35-0400 Body temperature 97.81 [degF] Gamaliel Vickers [employer] Work Phone: [employer] Phone: 01-08-2021 07:35-0400 SaO2% (BldA) [Mass fraction] 97 % Gamaliel Vickers [employer] Work Phone: [employer] Phone: 01-08-2021 07:29-0400 Diastolic blood pressure 77 mm[Hg] Gamaliel Vickers [employer] Work Phone: [employer] Phone: 01-08-2021 07:29-0400 Heart rate 87 /min Gamaliel Vickers [employer] Work Phone: [employer] Phone: 01-08-2021 07:29-0400 Respiratory rate 18 /min Gamaliel Vickers [employer] Work Phone: [employer] Phone: 01-08-2021 07:29-0400 Systolic blood pressure 123 mm[Hg] Gamaliel Vickers [employer] Work Phone: [employer] Phone: 01-07-2021 06:29-0400 Body height 170.2 cm Gamaliel Vickers [employer] Work Phone: [employer] Work Phone: 01-07-2021 06:29-0400 Body mass index (BMI) [Ratio] 40.68 kg/m2 Gamaliel Vickers [employer] Phone: [employer] Phone: 01-07-2021 06:29-0400 Body weight 117.8 kg Gamaliel Vickers [employer] Phone: [employer] Phone: 12-24-2020 10:33-0400 Body height 170.2 cm [facility] [employer] Phone: 12-24-2020 10:33-0400 Body mass index (BMI) [Ratio] 42.76 kg/m2 [facility] [employer] Phone: 12-24-2020 10:33-0400 Body temperature 97.7 [degF] [facility] [employer] Phone: 12-24-2020 10:33-0400 Body weight 123.83 kg [facility] [employer] Phone: 12-24-2020 10:33-0400 Diastolic blood pressure 76 mm[Hg] [facility] [employer] Phone: 12-24-2020 10:33-0400 Heart rate 71 /min [facility] [employer] Phone: 12-24-2020 10:33-0400 Respiratory rate 18 /min [facility] [employer] Phone: 12-24-2020 10:33-0400 SaO2% (BldA) [Mass fraction] 98 % [address] [employer] Phone: 12-24-2020 10:33-0400 Systolic blood pressure 115 mm[Hg] [address] Phone: 09-28-2020 08:40-0500 BP Diastolic 75 mm[Hg] [place] 09-28-2020 08:40-0500 BP Systolic 117 mm[Hg] [place] 09-28-2020 08:40-0500 Pulse (Heart Rate) 84 /min [place] 09-28-2020 08:40-0500 Pulse Oximetry 100 % [place] 09-28-2020 08:25-0500 Body Temperature 96.8 [degF] [place] 09-28-2020 08:25-0500 Respiratory Rate 23 /min [place] 09-28-2020 07:07-0500 BMI (Body Mass Index) 45.66 kg/m2 [place] 09-28-2020 07:07-0500 Body weight 132.22 kg [place] 09-28-2020 07:07-0500 Height 170.2 cm [place] Encounters Encounter Date Encounter Type Care Provider Facility Start: 05-04-2025 End: 05-04-2025 Office outpatient visit 25 minutes Aaliyah Zamudio DO Work Phone: [facility] Comment on above: 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) Start: 05-04-2025 End: 05-04-2025 ambulatory AALIYAH ZAMUDIO Not Available Start: 04-26-2025 End: 04-26-2025 Patient encounter procedure Aaliyah Zamudio DO [facility] Work Phone: Start: 04-26-2025 End: 04-26-2025 ambulatory Lindy Keen APRN Work Phone: [facility] Work Phone: Start: 04-25-2025 End: 04-25-2025 ambulatory Jak W [place] Facility[facility] Start: 04-20-2025 ambulatory Lindy Keen Facility :[facility] Start: 04-20-2025 Registered Recurring Nilsa Victor MD [facility] Start: 04-13-2025 End: 04-13-2025 Office outpatient new 60 minutes Aaliyah Jonathan Tito DO Work Phone: [facility] Comment on above: 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); Hypertrophy of breast Start: 04-13-2025 End: 04-13-2025 ambulatory AALIYAH ZAMUDIO Not Available Start: 04-09-2025 End: 04-09-2025 Office outpatient visit 25 minutes Shazia Elise OVER SHORT AND DAMAGE CLERK [facility] Comment on above: Acute pharyngitis, u nspecified etiology (Primary Dx); Pharyngitis, unspecified etiology Start: 04-09-2025 End: 04-09-2025 ambulatory SHAZIA ELISE Not Available Start: 03-29-2025 End: 03-29-2025 ambulatory Sami Brewster Facility:[facility] Start: 03-16-2025 End: 03-17-2025 Pre-admission assessment Jak Peace [facility] Start: 03-13-2025 End: 03-13-2025 ambulatory Jak W [place] Facility:[facility] Start: 03-09-2025 End: 03-09-2025 ambulatory Jenine Jeni Hameede Facility:[facility] Start: 03-09-2025 End: 03-09-2025 Patient encounter procedure Babar Mayers [facility] Start: 03-03-2025 End: 03-03-2025 ambulatory Babar Mayers Facility:[facility] Start: 03-03-2025 End: 03-03-2025 Pain Management Babar Mayers [facility] Start: 03-02-2025 End: 03-02-2025 ambulatory MARII Gastelum SHELIANOEMÍ Facility:[facility] Start: 03-02-2025 End: 03-02-2025 Patient encounter procedure MARII REYESCrystal [facility] Start: 02-17-2025 End: 02-17-2025 Emergency department patient visit Bryan Avila [facility] Start: 02-16-2025 End: 02-16-2025 ambulatory Jak W Nata [facility] [facility] Start: 02-16-2025 End: 02-16-2025 Patient encounter procedure Jak Moshe Peace [facility] Start: 02-16-2025 End: 02-16-2025 ambulatory MOLLY GREGORIO Facility[facility] Start: 02-16-2025 End: 02-16-2025 Patient encounter procedure Jak Moshe Peace [facility] Start: 02-11-2025 End: 02-13-2025 Refill Tevin Carson DO Work Phone: Family Medicine Comment on above: Refill Request Start: 02-09-2025 End: 02-09-2025 ambulatory Fernandez Daniels Facility[facility] Start: 02-09-2025 End: 02-09-2025 Patient encounter procedure MOLLY GREGORIO [facility] Start: 02-03-2025 End: 02-18-2025 Pre-admission assessment Babar Mayers [facility] Start: 02-03-2025 End: 02-03-2025 ambulatory MOLLY BERNARD Facility:[facility] Start: 01-27-2025 End: 01-27-2025 ambulatory Orlando Kate Facility:[facility] Start: 01-27-2025 End: 01-27-2025 Patient encounter procedure Orlandorayo Kate [facility] Start: 01-24-2025 End: 01-24-2025 ambulatory Babar Mayers Facility:[facility] Start: 01-24-2025 End: 01-24-2025 Pain Management Babar Mayers [facility] Start: 01-19-2025 End: 01-20-2025 Pre-admission assessment Orlandorayo Kate [facility] Start: 01-13-2025 End: 01-13-2025 ambulatory Orlando Kate Facility:[facility] Start: 01-13-2025 End: 01-13-2025 Patient encounter procedure Orlando Kate [facility] Start: 12-16-2024 End: 12-16-2024 Patient encounter procedure [facility]-MRI [address] [place] Work Phone: Start: 12-16-2024 End: 12-16-2024 ambulatory NON STAFF [facility] Work Phone: Start: 12-14-2024 End: 12-15-2024 ambulatory David Zazueta Facility:[facility] Start: 12-14-2024 End: 12-15-2024 Patient encounter procedure David Zazueta [facility] Start: 12-12-2024 End: 12-12-2024 Patient encounter procedure [facility] Ctr-Lab [address] Work Phone: Start: 12-12-2024 End: 12-12-2024 ambulatory NON STAFF [facility] Work Phone: Start: 11-29-2024 End: 11-30-2024 ambulatory Jennie Durand Facility:[facility] Start: 11-28-2024 End: 11-28-2024 ambulatory Babar Mayers Facility:[facility] Start: 11-28-2024 End: 11-28-2024 Pain Management Babar Mayers [facility] Start: 11-18-2024 End: 11-18-2024 ambulatory KURT BALBUENA Facility:[facility]i Start: 11-15-2024 End: 11-15-2024 ambulatory Orlando Kate Facility:[facility] Start: 11-15-2024 End: 11-15-2024 Patient encounter procedure Orlando Kate [facility] Start: 11-11-2024 End: 11-11-2024 ambulatory David Zazueta Facility:[facility] Start: 11-11-2024 End: 11-11-2024 Patient encounter procedure David B Roderickw [facility] Start: 11-02-2024 End: 11-02-2024 Patient encounter procedure Jennie Durand [facility] Start: 11-02-2024 End: 01-11-2025 ambulatory Jennie Durand Facility:[facility] Start: 11-01-2024 End: 11-11-2024 Pre-admission assessment Jennie Durand [facility] Start: 10-18-2024 End: 10-18-2024 Emergency department patient visit Jose Correia [facility] Start: 10-17-2024 End: 10-17-2024 ambulatory Melissa Gold MA [facility] Start: 10-17-2024 End: 10-17-2024 Patient encounter procedure Melissa Gold MA [facility] Comment on above: Population Health Na vigation Outreach (Mauricio Workalfonzohaydeejonathan Phan) Start: 10-14-2024 End: 10-14-2024 ambulatory KURT A ESHA Facility:[facility] Start: 09-30-2024 End: 09-30-2024 ambulatory KURT A ESHA Facility:[facility] Start: 09-27-2024 End: 09-27-2024 Bamboo flowsheet Christopher Suzie DO Work Phone: [facility] Start: 09-27-2024 End: 09-27-2024 Bamboo flowsheet Christopher Suzie DO Work Phone: [facility] Start: 09-27-2024 End: 09-27-2024 Patient encounter procedure Christscoter Suzie DO Work Phone: [facility] Comment on above: Myalgia Start: 09-27-2024 End: 09-27-2024 ambulatory CORBY LARSEN Not Available Start: 09-27-2024 End: 09-27-2024 ambulatory KURT A ESHA Facility:[facility] Start: 09-26-2024 End: 09-26-2024 ambulatory KURT A ESHA Facility:[facility] Start: 09-21-2024 End: 09-21-2024 Clinisync Result Encounter Christopher Suzie DO Work Phone: [facility] External Department Unsolicited Start: 09-21-2024 End: 09-21-2024 Clinisync Result Encounter Christopher Suzie DO Work Phone: [facility] External Department Unsolicited Start: 09-21-2024 End: 09-21-2024 Office outpatient visit 25 minutes Christopher Suzie DO Work Phone: [facility] JUDD Comment on above: Ataxia (Primary Dx); Myalgia Start: 09-21-2024 End: 09-21-2024 ambulatory CORBY LARSEN Not Available Start: 09-20-2024 End: 09-20-2024 Lab Drop off KURT BALBUENA [facility] Start: 09-20-2024 End: 09-20-2024 ambulatory KURTRosy BALBUENA [facility] Start: 09-16-2024 ambulatory KURT ESHA Facility :[facility] [place] Start: 09-15-2024 End: 09-15-2024 Emergency department patient visit [facility]-Emergency Room Work Phone: Start: 09-15-2024 End: 09-15-2024 ambulatory TIFFANIE MARADIAGA [facility] Start: 09-13-2024 End: 09-13-2024 Subsequent hospital visit by physician Clarita Smith Echo/Vasc Room 2 [facility] Comment on above: Angina pectoris; Shortness of breath; Palpitations; Family history of ischemic heart disease; Primary hypertension Start: 09-13-2024 End: 09-13-2024 ambulatory [facility] Start: 09-04-2024 End: 09-05-2024 ambulatory Tevin Ledy Work Phone: Family Medicine Comment on above: Blood work Start: 08-25-2024 End: 08-25-2024 ambulatory Mary Jo Trinidad RN Work Phone: [employer] Start: 08-25-2024 End: 08-25-2024 Patient encounter procedure Mary Jo Trinidad RN Work Phone: [employer] Comment on above: CARMELINA LAN RN ( ED Utilization Review per request of payor/) Start: 08-18-2024 End: 08-18-2024 Patient encounter procedure TIFFANIE MARADIAGA [facility] Start: 08-17-2024 End: 08-17-2024 Refill Tevin Carson DO Work Phone: Family Medicine Comment on above: Med Change Request Start: 08-08-2024 End: 08-08-2024 Office outpatient new 45 minutes Aleah Howard MD Work Phone: [facility] Comment on above: Angina pectoris; Shortness of breath; Palpitations; Family history of ischemic heart disease; Primary hypertension; Current smoker; BMI 29.0-29.9,adult Start: 08-08-2024 End: 08-08-2024 ambulatory [facility] Start: 07-26-2024 End: 07-26-2024 ambulatory TEVIN CARSON Facility:[facility] Start: 07-25-2024 End: 07-25-2024 ambulatory TEVIN KATEE Facility:[facility] Start: 07-25-2024 End: 07-25-2024 Office outpatient visit 25 minutes Tevin Ledy DO Work Phone: Family Medicine Comment on above: Bipolar affective di sorder in remission (HCC) (Primary Dx); Borderline personality disorder (HCC); Anxiety disorder, unspecified type; Chest pain, unspecified type; Iron deficiency anemia, unspecified iron deficiency anemia type Start: 07-22-2024 End: 07-22-2024 ambulatory Tevin Carson DO Work Phone: [facility] Comment on above: Depression and anxie ty Anxiety; Depression Start: 07-13-2024 End: 07-13-2024 Telephone encounter Patricia Tate RN Mammography Comment on above: Results; Appointment Start: 07-11-2024 End: 07-11-2024 ambulatory ABI ASIF Facility:[facility] Start: 07-11-2024 End: 07-11-2024 Subsequent hospital visit by physician Procedure Mammo [facility] Comment on above: Abnormal mammogram o f left breast [R92.8] Start: 07-04-2024 End: 07-04-2024 ambulatory TEVIN CARSON Facility:[facility] Start: 07-04-2024 End: 07-04-2024 Patient encounter procedure Fatuma Tyler APRN.ENERGY OPERATIONS VICE PRESIDENT Work Phone: [facility] Comment on above: Abnormal mammogram ( [...] breast [N63.21] Start: 07-03-2024 Non-patient / Non-visit [facility] Work Phone: Start: 07-01-2024 End: 07-01-2024 ambulatory TEVIN CARSON Facility:[facility] Start: 07-01-2024 End: 07-01-2024 Office outpatient visit 25 minutes Tevin Carson DO Work Phone: Family Medicine Comment on above: Chest pain, unspecif ied type (Primary Dx); Palpitations; Bipolar affective disorder in remission (HCC); History of substance abuse (HCC); Borderline personality disorder (HCC); Serum calcium elevated Start: 06-30-2024 End: 07-01-2024 Telephone encounter Fatuma Tyler APRN.CNP Work Phone: [facility] Comment on above: Appointment Start: 05-30-2024 End: 05-30-2024 ambulatory Lenora Yee RN Work Phone: [employer] Comment on above: CARMELINA LAN RN ( ED Utilization review per request of payer) Start: 04-26-2024 ambulatory Elia mcdowell DO Work Phone: Family Medicine Start: 03-08-2024 End: 03-08-2024 Emergency department patient visit Alexis Shukla [facility] Start: 03-08-2024 End: 03-08-2024 Subsequent hospital visit by physician Mri [facility] [place] (Lg Bore/1.5t) Radiology MRI Comment on above: 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 Start: 01-05-2024 Telephone encounter Elia rob DO Work Phone: Family Medicine Start: 01-04-2024 End: 01-04-2024 ambulatory ELIA BAIRES Facility:[facility] Start: 01-04-2024 End: 01-04-2024 Patient encounter procedure Elia Baires DO Work Phone: Family Medicine Comment on above: Panic disorder (Prim masuod Dx); Borderline personality disorder (HCC); Bipolar affective disorder in remission (HCC); Chronic alcoholism in remission (HCC); Routine health maintenance Start: 01-04-2024 End: 01-04-2024 Patient encounter status Elia Baires DO Work Phone: [facility] Start: 12-31-2023 End: 12-31-2023 Emergency department patient visit DO Jennie Durand Work Phone: [facility] Ctr-Emergency Room Work Phone: Start: 12-25-2023 ambulatory SELF REFERRAL Facility: [facility] Start: 12-24-2023 End: 12-24-2023 Emergency department patient visit DO Jennie Durand Work Phone: [facility]-Emergency Room Work Phone: Start: 2023 ambulatory Otto Larsen Facility:[facility] Start: 12-10-2023 End: 12-10-2023 Emergency department patient visit DO Jennie Durand Work Phone: [facility]-Emergency [facility] Work Phone: Start: 12-09-2023 End: 12-09-2023 ambulatory Jennie Durand Facility:[facility] Start: 12-09-2023 End: 12-09-2023 Patient encounter procedure Jennie Durand [facility] Start: 10-23-2023 End: 10-26-2023 [facility] Start: 10-12-2023 End: 10-15-2023 amb[facility] Start: 09-18-2023 End: 09-18-2023 Subsequent hospital visit by physician Gamaliel Vickers DO Work Phone: [facility] Start: 08-31-2023 End: 09-01-2023 ambulatory LEONELA AGUIRRE Facility:[facility] Start: 08-28-2023 End: 08-28-2023 ambulatory Imad Asaad Other [employer] Other Start: 08-28-2023 Telephone encounter Imad Asaad [facility] [employer] Start: 08-18-2023 End: 08-21-2023 [facility] Start: 08-15-2023 End: 08-15-2023 Emergency department patient visit DO Jennie Durand Work Phone: [facility] Work Phone: Start: 08-14-2023 End: 08-14-2023 Emergency department patient visit DO Jennie Durand Work Phone: [facility] C[facility]-Emergency Room Work Phone: Start: 08-13-2023 End: 08-13-2023 ambulatory Imad Asaad Other [employer] Other Start: 08-13-2023 Office outpatient ne w 45 minutes Imad Asaad [facility] Start: 08-12-2023 End: 08-15-2023 ambulatory [facility] Start: 07-08-2023 End: 07-08-2023 ambulatory Ania Javed Other [employer] Other Start: 07-08-2023 Office outpatient ne w 20 minutes Ania Tegan [facility] Start: 07-03-2023 End: 07-03-2023 Emergency department patient visit DO Jennie Durand Work Phone: [facility] C[facility]-Emergency Room Work Phone: Start: 07-02-2023 End: 07-02-2023 Emergency department patient visit Bakari Chester [facility] Start: 06-10-2023 End: 06-10-2023 ambulatory EILEEN ALVAREZ Facility:[facility] Start: 06-09-2023 End: 06-09-2023 Emergency department patient visit Alexis Shukla Facility:[facility] Start: 06-03-2023 Refill Eileen Alvarez MD Work Phone: Neurology Comment on above: Refill Request Start: 03-19-2023 End: 03-19-2023 ambulatory OVER SHORT AND DAMAGE CLERK GANESH CORDERO Facility:[facility] Start: 03-19-2023 End: 03-19-2023 Patient encounter procedure GANESH CORDERO [facility] Start: 01-29-2023 End: 01-29-2023 Subsequent hospital visit by physician Marixa [facility] Vicky (1.5t) Work Phone: Radiology Comment on above: 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] Start: 01-15-2023 End: 01-15-2023 Emergency department patient visit Bakari Chester [facility] Start: 01-02-2023 End: 01-02-2023 Patient encounter procedure Nakia Mcqueen [facility] Start: 12-12-2022 Refill Eileen Alvarez MD Work Phone: Neurology Comment on above: Refill Request Start: 12-05-2022 End: 12-05-2022 Admission to same day surgery center Gal Das [facility] Start: 11-21-2022 End: 11-21-2022 Patient encounter procedure Gal Das [facility] Start: 11-20-2022 End: 11-20-2022 ambulatory EILEEN ALVAREZ Facility:[facility] Start: 11-20-2022 End: 11-20-2022 Patient encounter procedure Eileen Alvarez MD Work Phone: Neurology Comment on above: Idiopathic intracran ial hypertension (Primary Dx); Depression, unspecified depression type; Primary hypertension; Hx of gastric bypass; H/O foot surgery Start: 11-03-2022 End: 11-03-2022 Patient encounter procedure Nakia Mcqueen [facility] Start: 10-30-2022 End: 10-30-2022 ambulatory STEFANIE SINGH . Facility:[facility] Start: 10-23-2022 End: 10-23-2022 Lab Drop off Gal Jeni Thiago [facility] Start: 10-14-2022 End: 10-14-2022 Patient encounter procedure Rita Loja [facility] Start: 09-24-2022 End: 09-24-2022 Patient encounter procedure Aimee Walker [facility] Start: 08-22-2022 End: 08-22-2022 Patient encounter procedure Rahul Mia Salinas [facility] Start: 08-19-2022 End: 08-19-2022 ambulatory DO Jennie Durand Work Phone: [facility] Work Phone: Start: 08-19-2022 End: 08-19-2022 Patient encounter procedure DO Jennie Durand Work Phone: [facility] Start: 08-18-2022 End: 08-18-2022 ambulatory RAMSES MARTINEZ . Facility:[facility] Start: 08-18-2022 End: 08-18-2022 Emergency department patient visit Alexis Shukla [facility] Start: 08-16-2022 End: 08-16-[address] NEW DREW . Facility:[facility] Start: 08-12-2022 ambulatory Facility:[id number] Start: 08-11-2022 End: 08-12-2022 Evaluation and management of inpatient DO Jennie Durand Work Phone: [facility] Start: 08-11-2022 End: 08-12-2022 observation encounter DO Jennie Durand Work Phone: [facility] Work Phone: Start: 08-11-2022 End: 08-11-[address] WEI PHAM Facility:[facility] Start: 08-08-2022 End: 08-08-2022 Emergency department patient visit Bakari Chester [facility] Start: 07-21-2022 End: 07-21-2022 Patient encounter procedure Aimee Walker [facility] Start: 07-19-2022 End: 07-19-[address] DOCTOR CAMARILLO Facility:[facility] Start: 07-18-2022 Telephone encounter Eduin Leiva) [facility] Comment on above: Appointment Start: 06-12-2022 End: 06-12-[address] CAROLYNE RALPH Facility:[facility] Start: 06-10-2022 End: 06-10-2022 Patient encounter procedure Alexis Rivers [facility] Start: 05-30-2022 End: 05-30-2022 ambulatory GABRIELA CAMARGO Facility:[facility] Start: 05-13-2022 End: 05-13-2022 Patient encounter procedure Alexis Rivers [facility] Start: 04-22-2022 End: 04-22-2022 Patient encounter procedure Aimee Walker [facility] Start: 04-21-2022 End: 04-21-2022 Patient encounter procedure Aimee Walker [facility] Start: 04-20-2022 End: 04-20-2022 Emergency department patient visit Jose Correia [facility] Start: 04-07-2022 End: 04-07-[address] LADY SANCHEZ . Facility:[facility] Start: 04-03-2022 End: 04-03-2022 Emergency department patient visit Larry Baker [facility] Start: 04-03-2022 End: 04-03-2022 Well adult monitoring check done Larry Baker [facility] Start: 02-12-2022 End: 02-12-2022 Patient encounter procedure Amee Gonzalez PA-C Work Phone: Otolaryngology Comment on above: Burning tongue (Prim masoud Dx); Irritation of oral cavity Start: 02-08-2022 End: 02-08-2022 ambulatory STEFANIE SINGH . Facility:[facility] Start: 02-06-2022 End: 02-06-2022 Patient encounter procedure Aimee Walker [facility] Start: 01-30-2022 End: 01-30-2022 ambulatory GABRIELA CAMARGO Facility:[facility] Start: 01-29-2022 End: 01-29-2022 Patient encounter procedure Aimee Walker [facility] Start: 01-27-2022 ambulatory Eduin Mckee MD Work Phone: Plastic Surgery Comment on above: questions Start: 01-10-2022 Telephone encounter Eduin marx MD Work Phone: Plastic Surgery Comment on above: Patient Question; Ap pointment Start: 01-09-2022 End: 01-09-2022 Patient encounter procedure Aimee Walker [facility] Start: 12-27-2021 Telephone encounter Eduin marx MD Work Phone: Plastic Surgery Comment on above: Orders Scheduling Start: 11-16-2021 End: 11-17-[address] WILEY HELM Facility:[facility] Start: 02-04-2021 End: 02-06-2021 Subsequent hospital visit by physician Chaitanya Cat Scan Room [facility] CT Scan Comment on above: Omental infarction ( HCC) Start: 01-30-2021 End: 02-01-2021 Evaluation and management of inpatient Berry Lawson MD Work Phone: [facility] Ortho/Med Surg Comment on above: Surgery, elective (P rimary Dx); Omental infarction (HCC) Start: 01-30-2021 End: 01-30-2021 Emergency department patient visit David Nash MD Work Phone: [facility] ED Comment on above: Generalized abdomina [...] Start: 01-03-2021 End: 01-04-2021 ambulatory JENNIE DURAND [facility] yvon Start: 01-03-2021 End: 01-03-2021 Patient encounter status Staz Schedule [facility] Covid Scre ening Start: 01-03-2021 End: 01-03-2021 Subsequent hospital visit by physician Edgardo Covid Screening Schedule [facility] Covid Screening Comment on above: Preop testing (Prima ry Dx) Start: 12-24-2020 End: 12-28-2020 Subsequent hospital visit by physician Christiane Pat Xr [facility] Radiology Comment on above: Arrived Start: 11-01-2020 End: 11-03-2020 Subsequent hospital visit by physician Chaitanya Gen Radiologist [facility] Radiology Comment on above: Gastroesophageal ref lux disease with esophagitis without hemorrhage Start: 10-26-2020 End: 10-26-2020 Subsequent hospital visit by physician Memo Covid Screening Schedule [facility] Covid Screening Comment on above: Preoperative testing Start: 09-28-2020 End: 09-28-2020 Subsequent hospital visit by physician Gamaliel Vickers [place] Start: 09-24-2020 End: 09-28-2020 Subsequent hospital visit by physician Chaitanya Mcclendon19 Pat Screening Schedule [facility] PRE ADMIT Comment on above: Preoperative testing Start: 11-01-2015 Patient encounter procedure LINDY COTE Facility:[facility] Procedures Date Procedure Procedure Detail Performing Clinician Start: 04-26-2025 Mammography of left breast Lindy Keen APRN Work Phone: Start: 04-26-2025 Ultrasonography of l eft breast Lindy Keen APRN Work Phone: Start: 04-09-2025 Iadna streptococcus group a amplified probe tq Shazia Isreal Elise OVER SHORT AND DAMAGE CLERK Work Phone: Start: 03-03-2025 Injection of facet j oint using fluoroscopic guidance Babar Mayers Comment on above: L4-S1 Start: 01-24-2025 Injection of facet j oint using fluoroscopic guidance Orlando Kate Start: 12-16-2024 MRI of head Start: 11-28-2024 Injection of nerve r oot of lumbar spine using fluoroscopic guidance Orlando [employer] Comment on above: left L5/S1 TFESI Start: [...] 03-08-2024 H/O: hysterectomy History of hysterectomy Elia Ronald Baires DO Work Phone: Start: 03-08-2024 3d rendering w/interp&postproc diff work station Leonela Aguirre MD Work Phone: Start: 03-08-2024 Mri abdomen w/o & w/contrast material Leonela Aguirre MD Work Phone: Start: 01-04-2024 Drug tst prsmv instr mnt chem analyzers pr date Elia Baires DO Work Phone: Start: 12-10-2023 Plain chest X-ray DO Am rosy Durand Work Phone: Start: 08-15-2023 Computed tomography [...] 02-01-2021 Blood count complete auto&auto difrntl wbc Riuz Joel DO Work Phone: Start: 01-31-2021 BASIC [...] w/byp tian-en-y limb <150 cm Gamaliel Vickers [employer] Work Phone: Start: 01-07-2021 Urine test visual color cmprsn meths Gamaliel Gastelum [employer] Work Phone: Start: 12-24-2020 Assay of nicotine Enmanuel Gastelum [employer] Work Phone: Start: 12-24-2020 Basic metabolic pane l calcium total Gamaliel Gastelum Vickers [employer] Work Phone: Start: 12-24-2020 Radiologic exam ches t 2 views Gamaliel Chinton Work Phone: Start: 12-24-2020 Ecg routine ecg w/le ast 12 lds trcg only w/o i&r Gamaliel [email or web address] Work Phone: Start: 12-24-2020 EKG REPORT Hpf Scanni ng Start: 11-01-2020 Radex upper gi w/wo glucagon/delay imges w/o kub Gamaliel Gastelum [employer] Work Phone: Start: 09-24-2020 COVID-19 Obdulio Matthewu [...] of 2) Zoster Vaccines (1 of 2) [facility] Start: 02-24-2027 Diabetes mellitus screening Diabetes Screening [facility] Start: 07-25-2025 Annual PCP Team Chronic Disease Visit Annual PCP Team Chronic Disease Visit [facility] Start: 07-25-2025 BP Controlled (<130/80) BP Controlled (<130/80) [facility] Start: 07-01-2025 Annual PCP Team Chronic Disease Visit Annual PCP Team Chronic Disease Visit [facility] Start: 07-01-2025 BP Controlled (<130/80) BP Controlled (<130/80) [facility] Start: 06-08-2025 End: 06-08-2025 Patient encounter procedure 06/08/2025 10:15 AM EDT Office Visit [facility] [address] [id number] Aaliyah Zamudio, DO [address] [address] [facility] Start: 05-15-2025 Influenza vaccination [facility] Start: 05-01-2025 End: 05-01-2025 Patient encounter procedure 05/01/2025 2:15 PM EDT Office Visit [facility] [address] [place] [id number] Aaliyah Zamudio H, DO [address] [place] [address] [facility] Start: 04-13-2025 End: 06-13-2026 DBT Breast - left diagnostic Left diagnostic mammogram with tomosynthesis Imaging Routine Pseudoangiomatous stromal hyperplasia of breast Hypertrophy of breast Expected: 04/13/2025, Expires: 06/13/2026 [facility] Work Phone: Comment on above: Expected: 04/13/2025, Expires: Start: 04-13-2025 End: 06-13-2026 US Breast - left limited Left breast US limited Imaging Routine Pseudoangiomatous stromal hyperplasia of breast Hypertrophy of breast Expected: 04/13/2025, Expires: 06/13/2026 [facility] Comment on above: Expected: 04/13/2025, Expires: Start: 04-13-2025 End: 04-13-2025 Patient encounter procedure 04/13/2025 10:00 AM EDT Consult [facility] Surgical [facility] [address] [address] Aaliyah Zamudio DO [address] [address] [facility] Start: 03-08-2025 Annual PCP Team Chronic Disease Visit Annual PCP Team Chronic Disease Visit [facility] Start: 03-08-2025 BP Controlled (<130/80) BP Controlled (<130/80) [facility] inic Start: 03-08-2025 Urine microalbumin profile DTaP,Tdap,Td Vaccine (1 - Tdap) [facility] Comment on above: Postponed from 12/18/2007 (Declined at t his time) Start: 01-03-2025 Annual PCP Team Chronic Disease Visit Annual PCP Team Chronic Disease Visit [facility] Start: 12-12-2024 Aldolase measurement [facility] Start: 12-12-2024 Antibody to Scl-70 measurement [facility] Start: 12-12-2024 Hemolytic complement CH50 level [facility] Start: 12-12-2024 RESPIRATORY SERVICES MANAGER antibody measurement [facility] Start: 12-12-2024 [facility] Start: 10-20-2024 End: 10-20-2024 Patient encounter procedure 10/20/2024 8:40 AM EST Office Visit [facility] [address] [place] [address] Mague Fine NP [address] [place] [address] [facility] Start: 10-04-2024 End: 10-04-2024 Patient encounter procedure 10/04/2024 12:40 PM EST Appointment Radiology MRI [address] [place], [place] [id number] MRI BREAST WO/W IVCON Radiology MRI Comment on above: MRI BREAST WO/W IVCON Start: 09-27-2024 End: 09-27-2024 Patient encounter procedure RUTH Walls Comment on above: Arrived Start: 09-21-2024 End: 09-21-2025 EMG 2 Extremities EMG 2 Extremities Neurology Routine Myalgia Expected: 09/21/2024, Expires: 09/21/2025 [facility] Work Phone: Comment on above: Expected: 09/21/2024, Expires: Start: 09-21-2024 End: 09-21-2025 MR Brain WO and W contrast IV MR brain w and wo contrast routine Imaging Routine Ataxia Expected: 09/21/2024, Expires: 09/21/2025 [facility] Comment on above: Expected: 09/21/2024, Expires: Start: 09-21-2024 End: 09-21-2025 Myoglobin, serum Myoglobin, serum Lab Routine Myalgia Expected: 09/21/2024 (Approximate), Expires: 09/21/2025 [facility] Comment on above: Expected: 09/21/2024 (Approximate), Expi res: 09/21/2025 Start: 09-21-2024 End: 09-21-2025 Nuclear Ab [Titer] in Serum by Immunofluorescence [facility] Lab Routine Myalgia Expected: 09/21/2024 (Approximate), Expires: 09/21/2025 [facility] Healthcare Comment on above: Expected: 09/21/2024 (Approximate), Expi res: 09/21/2025 Start: 09-21-2024 End: 09-21-2025 Thyrotropin [Units/volume] in Serum or Plasma TSH Lab Routine Myalgia Expected: 09/21/2024 (Approximate), Expires: 09/21/2025 [facility] Healthcare Comment on above: Expected: 09/21/2024 (Approximate), Expi res: 09/21/2025 Start: 09-19-2024 End: 09-19-2024 Patient encounter procedure 09/19/2024 3:00 PM EST Office Visit [facility] [address] [facility] [address] [place] [address] Alaeh Howard MD [address] [facility] [address] [place], [place] [id number] [facility] Start: 09-13-2024 End: 09-13-2024 [facility] Comment on above: ER Follow up Start: 08-24-2024 End: 08-24-2024 ambulatory 08/24/2024 11:20 AM EST [facility] [address] [place] [address] [place] [address] [place], [place] [id number] Return in about 4 weeks (around 08/22/2024) Family Medicine Comment on above: Return in about 4 weeks (around ) Start: 08-23-2024 End: 08-23-2024 Patient encounter procedure [facility] Start: 08-08-2024 End: 08-08-2025 NM Heart Perfusion W stress and W radionuclide IV Nuclear Stress Test Cardiac Nuclear Medicine Routine Angina pectoris Shortness of breath Palpitations Family history of ischemic heart disease Primary hypertension Expected: 08/08/2024 (Approximate), Expires: 08/08/2025 [facility] Service Area Work Phone: Comment on above: Expected: 08/08/2024 (Approximate), Expi res: 08/08/2025 Start: 08-08-2024 End: 08-08-2026 US Heart Transthoracic Transthoracic Echo Complete Echocardiography Routine Angina pectoris Shortness of breath Palpitations Family history of ischemic heart disease Primary hypertension Expected: 08/08/2024 (Approximate), Expires: 08/08/2026 [facility] Work Phone: Comment on above: Expected: 08/08/2024 (Approximate), Expi res: 08/08/2026 Start: 08-05-2024 End: 08-05-2024 ambulatory [facility] Comment on above: Fhx of pancreatic cancer, Phx of pancrea tic mass Action taken: Marked in [employer] for Schedulers Start: 07-29-2024 End: 07-29-2024 Patient encounter procedure 07/29/2024 2:40 PM EST Office Visit Family Medicine [address] [place] [address] [place] [address] [place], [place] [id number] Return in about 4 weeks (around 07/29/2024) Family Medicine Comment on above: Return in about 4 weeks (around 07/29/20) Start: 07-27-2024 End: 07-27-2024 Patient encounter procedure 07/27/2024 11:30 AM EST Office Visit [facility] [address] [place] [address] Kiera Gilmore DO [address] [place] [address] Teresa David, 07/27/24, 1130am, ty per email Breast Center Comment on above: Teresa David, 07/27/24, 1130am, ty per email Start: 07-26-2024 End: 07-26-2024 ambulatory 07/26/2024 8:45 AM EST Results Only [facility] [address] [place] [address] [place] [address] Iron deficiency anemia, unspecified iron deficiency anemia type [D50.9] [facility] Comment on above: Iron deficiency anemia, unspecified iron deficiency anemia type [D50.9] Start: 07-25-2024 End: 07-25-2024 Patient encounter procedure 07/25/2024 3:00 PM EST Office Visit Family Medicine [address] [place] [address] [place] [address] [place] [address] H f/u Family Medicine Comment on above: H f/u Start: 07-25-2024 End: 10-24-2024 CBC W Auto Differential panel - Blood COMPLETE BLOOD COUNT AND DIFFERENTIAL Lab Routine Iron deficiency anemia, unspecified iron deficiency anemia type Expected: 07/25/2024, Expires: 10/24/2024 [facility] Comment on above: Expected: 07/25/2024, Expires: Start: 07-25-2024 End: 10-24-2024 Ferritin [Mass/volume] in Serum or Plasma FERRITIN Lab Routine Iron deficiency anemia, unspecified iron deficiency anemia type Expected: 07/25/2024, Expires: 10/24/2024 [facility] Work Phone: Comment on above: Expected: 07/25/2024, Expires: Start: 07-25-2024 End: 10-24-2024 Iron and Iron binding capacity panel - Serum or Plasma IRON AND TIBC Lab Routine Iron deficiency anemia, unspecified iron deficiency anemia type Expected: 07/25/2024, Expires: 10/24/2024 [facility] Comment on above: Expected: 07/25/2024, Expires: Start: 07-11-2024 End: 07-11-2024 Patient encounter procedure 07/11/2024 8:30 AM EDT Appointment Mammography [address] [place] [address] lt breast us core bx Mammography Comment on above: lt breast us core bx Start: 07-04-2024 End: 07-04-2024 Patient encounter procedure [facility] Comment on above: 11:30A IMAGING; Breast lump with pain x 1 yr; imaging done at [facility](pt hand caring images); Bx recommended by PCP; blood nipple discharge- spontaneous- last noticed 8 months ago Breast lump with suraj n x 1 yr; imaging done at [facility](pt hand caring images); Bx recommended by PCP; blood nipple discharge- spontaneous- last noticed 8 months ago Start: 07-01-2024 End: 09-30-2024 25-hydroxyvitamin D3 [Mass/volume] in Serum or Plasma VITAMIN D 25 HYDROXY Lab Routine Serum calcium elevated Expected: 07/01/2024, Expires: 09/30/2024 [facility] Comment on above: Expected: 07/01/2024, Expires: Start: 07-01-2024 End: 09-30-2024 Comprehensive metabolic 2000 panel - Serum or Plasma COMPREHENSIVE METABOLIC PANEL Lab Routine Serum calcium elevated Expected: 07/01/2024, Expires: 09/30/2024 [facility] Comment on above: Expected: 07/01/2024, Expires: Start: 07-01-2024 End: 09-30-2024 Parathyrin.intact [Mass/volume] in Serum or Plasma PTH INTACT Lab Routine Serum calcium elevated Expected: 07/01/2024, Expires: 09/30/2024 [facility] Comment on above: Expected: 07/01/2024, Expires: Start: 07-01-2024 End: 07-01-2024 Patient encounter procedure 07/01/2024 11:00 AM EDT Office Visit Family Medicine [address] [place] [address] [place] [address] [place] [address] est care. Updated PCP per navigation rules. Family Medicine Comment on above: est care. Updated PCP per navigation rul es. Start: 05-31-2024 End: 05-31-2024 Patient encounter procedure 05/31/2024 11:00 AM EDT Office Visit Family Medicine [address] [place] [address] Lisha Bianchi APRN.ENERGY OPERATIONS VICE PRESIDENT [address] [place] [address] ED follow up Family Medicine Comment on above: ED follow up Start: 05-24-2024 End: 05-24-2024 Patient encounter procedure 05/24/2024 11:15 AM EDT Office Visit Endocrinology [address] [place] [address] Austin Leon APRN.ENERGY OPERATIONS VICE PRESIDENT [address] [place] [address] Class 1 obesity due to excess calories without serious comorbidity with body ma Endocrinology Comment on above: Class 1 obesity due to excess calories w ithout serious comorbidity with body ma Start: 05-15-2024 COVID-19 Vaccine () COVID-19 Vaccine () [facility] Start: 05-15-2024 COVID-19 Vaccine () COVID-19 Vaccine () [facility] Start: 05-15-2024 Influenza vaccination [facility] Start: 03-01-2024 End: 03-01-2024 Patient encounter procedure 03/01/2024 11:20 AM EDT Appointment Radiology [address] [place] [address] MRI Panc/Tanmay Wo/W Iv[facility] Radiology Comment on above: MRI Panc/Tanmay Wo/W Ivcon Start: 01-06-2024 End: 01-06-2024 ambulatory 01/06/2024 8:30 AM EDT Results Only [facility] [address] [place] [address] [place] [address] [facility] Start: 01-04-2024 End: 04-04-2024 CBC panel - Blood by Automated count COMPLETE BLOOD COUNT Lab Routine Routine health maintenance Expected: 01/04/2024, Expires: 04/04/2024 [facility] Work Phone: Comment on above: Expected: 01/04/2024, Expires: Start: 01-04-2024 End: 04-04-2024 Comprehensive metabolic 2000 panel - Serum or Plasma COMPREHENSIVE METABOLIC PANEL Lab Routine Routine health maintenance Expected: 01/04/2024, Expires: 04/04/2024 [facility] Comment on above: Expected: 01/04/2024, Expires: Start: 01-04-2024 End: 04-04-2024 Hemoglobin A1c in Blood HEMOGLOBIN A1C Lab Routine Routine health maintenance Expected: 01/04/2024, Expires: 04/04/2024 [facility] Comment on above: Expected: 01/04/2024, Expires: Start: 01-04-2024 End: 04-04-2024 Hepatitis C virus Ab [Presence] in Serum HEPATITIS C ANTIBODY IA WITH CONFIRMATION Lab Routine Routine health maintenance Expected: 01/04/2024, Expires: 04/04/2024 [facility] Comment on above: Expected: 01/04/2024, Expires: Start: 01-04-2024 End: 04-04-2024 HIV 1+2 Ab [Presence] in Serum or Plasma by Immunoassay HIV 1/2 COMBO WITH REFLEX TO DIFFERENTIATION Lab Routine Routine health maintenance Expected: 01/04/2024, Expires: 04/04/2024 [facility] Comment on above: Expected: 01/04/2024, Expires: 4 Start: 01-04-2024 End: 04-04-2024 Lipid 1996 panel - Serum or Plasma LIPID PANEL BASIC Lab Routine Routine health maintenance Expected: 01/04/2024, Expires: 04/04/2024 [facility] Comment on above: Expected: 01/04/2024, Expires: Start: 12-10-2023 [facility] Start: 09-18-2023 End: 09-18-2023 Egd transoral biopsy single/multiple EGD BIOPSY Gastroesophageal reflux disease, unspecified whether esophagitis present Obesity (BMI 30-39.9) 09/18/2023 8:14 AM [facility] [employer] [facility] [place] Start: 05-15-2023 COVID-19 Vaccine ( season) COVID-19 Vaccine ( season) [facility] [employer] [facility] Start: 05-15-2023 Influenza vaccination Influenza Vaccine (#1) [facility] Start: 04-14-2023 Influenza vaccination Flu vaccine (#1) [facility] Start: 08-19-2022 Cerebrospinal fluid culture [facility] Start: 08-19-2022 End: 08-19-2022 [facility] Start: 08-12-2022 [facility] Start: 08-12-2022 Glucose [Mass/volume] in Cerebral spinal fluid [facility] Start: 08-12-2022 Protein [Mass/volume] in Cerebral spinal fluid [facility] Start: 08-12-2022 [facility] Start: 08-11-2022 Hospital admission [facility] Start: 08-11-2022 Referral to neurologist [facility] Start: 08-11-2022 [facility] Start: 05-15-2022 Influenza vaccination [facility] Start: 09-29-2021 COVID-19 VACCINE (3 - Booster for Pfizer series) COVID-19 VACCINE (3 - Booster for Pfizer series) [facility] Start: 09-14-2021 DEPRESSION ASSESSMENT DEPRESSION ASSESSMENT [facility] Start: 06-24-2021 COVID-19 VACCINE (3 - Booster for Pfizer series) COVID-19 VACCINE (3 - Booster for Pfizer series) [facility] Start: 06-24-2021 Covid-19 Vaccine (3 - Pfizer series) Covid-19 Vaccine (3 - Pfizer series) [facility] Start: 03-06-2021 End: 03-06-2021 Patient encounter procedure 03/06/2021 Office Visit BariatricGamaliel Robledo DO [address] [place] [phone] [facility] Invasive Bariatric Surg Start: 02-20-2021 End: 02-20-2021 Patient encounter procedure 02/20/2021 Office Visit Gamaliel Mistry DO [address] [place] [phone] [facility] BARIATR[facility] Start: 01-18-2021 End: 01-18-2021 Office Visit 01/18/2021 Office Visit BariatricGamaliel Robledo DO [address] [place] [phone] [facility] Start: 01-07-2021 End: 01-07-2021 Hospital Encounter [facility] Comment on above: XI LAPAROSCOPIC ROBOTIC GASTRIC BYPASS R OUX-EN-Y, LIVER BIOPSY, EGD- GI UNIT SCHEDULED. Start: 01-03-2021 End: 01-03-2021 [facility] Visit [facility] Comment on above: Arrived Start: 12-31-2020 End: 12-31-2021 COVID-19 COVID-19 Lab Routine Preop testing Expected: 12/31/2020, Expires: 12/31/2021 [facility] Work Phone: Comment on above: Expected: 12/31/2020, Expires: Start: 11-21-2020 End: 11-21-2020 Office Visit 11/21/2020 Office Visit Bariatrics Ganesh Cordero, AUTOMOTIVE INTERNET SALES CONSULTANT - ENERGY OPERATIONS VICE PRESIDENT [address] [facility] [address] [place] [address] [facility] Start: 11-01-2020 End: 11-01-2020 Appointment 11/01/2020 Appointment Radiology Radiologist [facility] Start: 10-24-2020 End: 10-24-2020 Office Visit [facility] Start: 09-26-2020 Annual Wellness Visit (AWV) Annual Wellness Visit (AWV) [place], [place] Start: 2018 HPV TESTING HPV TESTING [facility] Start: 2018 Screening for malignant neoplasm of cervix [facility] Start: 06-10-2016 Screening for malignant neoplasm of cervix [facility] Start: 2010 DTaP/Tdap/Td Vaccines (1 - Tdap) DTaP/Tdap/Td Vaccines (1 - Tdap) [facility] Start: 2009 PAP TESTING PAP TESTING [facility] Start: 2009 Screening for malignant neoplasm of cervix [facility] Start: 12-18-2007 DTaP/Tdap/Td vaccine (1 - Tdap) DTaP/Tdap/Td vaccine (1 - Tdap) [employer] Start: 12-18-2007 Pneumococcal vaccination Pneumococcal Vaccine (1 of 2 - PCV) [facility] Start: 12-18-2007 Pneumococcal Vaccine: Pediatrics and At-Risk Adult Patients (1 of 2 - PCV) Pneumococcal Vaccine: Pediatrics and At-Risk Adult Patients (1 of 2 - PCV) [facility] Start: 12-18-2007 Urine microalbumin profile [employer] [facility] Start: 2006 ANNUAL PCP TEAM CHRONIC DISEASE VISIT ANNUAL PCP TEAM CHRONIC DISEASE VISIT [facility] Start: 2006 BP CONTROLLED (<130/80) BP CONTROLLED (<130/80) [facility] Start: 2006 HEPATITIS C SCREENING HEPATITIS C SCREENING [facility] Start: 2006 Hepatitis C screening [employer] Start: 2006 HIV SCREENING HIV SCREENING [facility] Start: 2006 HIV screening HIV Screening [facility] Start: 2004 COVID-19 Vaccine (1) COVID-19 Vaccine (1) [employer] Phone: Start: 12-18-2003 HIV screening HIV screen [employer] Start: 2001 Varicella vaccination Varicella Vaccines (1 of 2 - 13+ 2-dose series) [facility] Start: 2000 Adult depression screening assessment DEPRESSION SCREENING [facility] Start: 2000 COVID-19 Vaccine (1) COVID-19 Vaccine (1) [employer] Phone: Start: 2000 Depression Monitoring Depression Monitoring [facility] Start: 12-10-2000 Hepatitis B Vaccine (2 of 3 - 3-dose series) Hepatitis B Vaccine (2 of 3 - 3-dose series) [facility] Start: 12-10-2000 Hepatitis B Vaccines (2 of 3 - 3-dose series) Hepatitis B Vaccines (2 of 3 - 3-dose series) [facility] Start: 1994 PNEUMOCOCCAL (1 - PCV) PNEUMOCOCCAL (1 - PCV) [facility] Start: 1994 Pneumococcal 0-64 years Vaccine (1 - PCV) Pneumococcal 0-64 years Vaccine (1 - PCV) [facility] Start: 1994 [facility] Start: 1994 Pneumococcal Vaccine: Pediatrics (0 to 5 Years) and At-Risk Patients (6 to 64 Years) (1 of 2 - PCV) Pneumococcal Vaccine: Pediatrics (0 to 5 Years) and At-Risk Patients (6 to 64 Years) (1 of 2 - PCV) [facility] Start: 1989 Varicella vaccine (1 of 2 - 2-dose childhood series) Varicella vaccine (1 of 2 - 2-dose childhood series) [facility] Start: 1988 HEPATITIS B (1 of 3 - 3-dose series) HEPATITIS B (1 of 3 - 3-dose series) [facility] Start: 1988 Hepatitis B Vaccine (1 of 3 - 3-dose series) Hepatitis B Vaccine (1 of 3 - 3-dose series) [facility] Start: 1988 Hepatitis C screening Hepatitis C screen [place], [place] Start: 1988 HIV screening HIV Screening [facility] Start: 1988 Lipid panel Lipid Panel [facility] Start: 1988 Medicare Annual Wellness (AWV) Medicare Annual Wellness (AWV) [facility] Start: 1988 Medicare Annual Wellness Visit Medicare Annual Wellness Visit (AWV) [facility] 24 hour urine measurement [facility] Adenosine monophosphate.cyclic [Moles/volume] in Serum or Plasma [facility] Albumin [Mass/volume ] in Serum or Plasma [facility] Albumin/Globulin ratio [facility] Bacteria identified in Unspecified specimen by Aerobe culture [facility] Work Phone: Bacteria identified in Unspecified specimen by Anaerobe culture [facility] Work Phone: Basic Metabolic Pane l w/ Reflex to MG Basic Metabolic Panel w/ Reflex to MG Lab Routine Daily until discontinued starting 02/01/2021, 1 completed [facility] Work Phone: Comment on above: Daily until discontinued starting 2020, 1 completed Beta 2 glycoprotein 1 IgG Ab [Units/volume] in Serum [facility] Beta 2 glycoprotein 1 IgM Ab [Units/volume] in Serum [facility] End: 09-18-2023 Blood glucose - POCT Blood glucose - POCT Point of Care Testing Routine One Time for 1 Occurrences starting 09/18/2023 until 09/18/2023 [facility] [employer] Comment on above: One Time for 1 Occurrences starting 01/2024 until 09/18/2023 CANNABINOID CONF, UR CANNABINOID CONF, UR Lab Routine Panic disorder 01/04/2024 10:20 AM EDT [facility] Cardiolipin IgA Ab [Units/volume] in Serum by Immunoassay [facility] Cardiolipin IgG Ab [Units/volume] in Serum by Immunoassay [facility] Cardiolipin IgM Ab [Units/volume] in Serum by Immunoassay [facility] Cell count, cerebros kinga fluid [facility] Work Phone: [employer] protein B Ab [Units/volume] in Serum [facility] Cerebrospinal fluid examination [facility] Work Phone: Chromatin Ab [Units/volume] in Serum or Plasma [facility] Complement C3 [Mass/volume] in Serum or Plasma [facility] Complement C4 [Mass/volume] in Serum or Plasma [facility] Continuous pulse oximetry Pulse oximetry, continuous Respiratory Care Routine Every 4hr until discontinued starting 01/07/2021 [employer] Phone: Comment on above: Every 4hr until discontinued starting End: 10-26-2020 COVID-19 COVID-19 Lab Routine Preoperative testing 1 Occurrences starting 10/26/2020 until 10/26/2020 [employer] Work Phone: Comment on above: 1 Occurrences starting 10/26/2020 until 10/26/2020 COVID-19 [employer] Phone: End: 01-03-2021 COVID-19 COVID-19 Lab Routine Preop testing 1 Occurrences starting 01/03/2021 until 01/03/2021 [employer] Phone: Comment on above: 1 Occurrences starting 01/03/2021 until 01/03/2021 DBT Breast - bilater al diagnostic for implant LINDA DIAG W AV BILATERAL Radiology Routine Mass of upper outer quadrant of left breast 07/04/2024 11:[address] [facility] Work Phone: ECG COMPLETE ECG COMPLETE ECG Routine Chest pain, unspecified type Palpitations Ordered: 07/01/2024 [facility] Work Phone: Comment on above: Ordered: 07/01/2024 Electrophoresis: [id number] [facility] Electrophoresis: [id number] [facility] Electrophoresis: beta-globulin [facility] Electrophoresis: fiorella ma globulin [facility] Evaluation of cerebrospinal fluid [facility] Work Phone: Fluid sample volume measurement [facility] Work Phone: Globulin [Mass/volum e] in Serum [facility] Glucose [Mass/volume ] in Cerebral spinal fluid [facility] Work Phone: Histone IgG Ab [Units/volume] in Serum by Immunoassay [facility] Homogenous nuclear A b pattern [Titer] in Serum [facility] IgA [Mass/volume] in Serum or Plasma [facility] IgG [Mass/volume] in Serum or Plasma [facility] IgM [Mass/volume] in Serum or Plasma [facility] Immunofixation for Urine [facility] End: 09-18-2023 INITIATE PACU OXYGEN THERAPY PROTOCOL Initiate PACU Oxygen Therapy Protocol Respiratory Care Routine Continuous until discontinued starting 09/18/2023 [facility] Comment on above: Continuous until discontinued starting 0 09/18/2023 Es-1 extractable nuc lear Ab [Units/volume] in Serum [facility] Lupus anticoagulant [Interpretation] in Platelet poor plasma [facility] Measurement of monoc lonal protein concentration [facility] Meningitis+Encephali tis pathogens DNA and RNA panel - Cerebral spinal fluid by JOSÉ MIGUEL with non-probe detection [facility] Work Phone: Microscopic observat ion [Identifier] in Unspecified specimen by Gram stain [facility] Work Phone: End: 08-03-2025 MR Breast - bilateral WO and W contrast IV MRI BREAST WO/W IVCON BILATERAL Radiology Routine Mass of upper outer quadrant of left breast Fibrocystic breast changes of both breasts Mastodynia Inversion of left nipple Bloody discharge from left nipple Nipple discharge 1 Occurrences starting 07/04/2024 until 08/03/2025 [facility] Work Phone: Comment on above: 1 Occurrences starting 07/04/2024 until 08/03/2025 End: 04-07-2025 MR Breast - left WO and W contrast IV MRI BREAST BX WO/W IVCON LEFT Radiology Routine Mass of upper outer quadrant of left breast 1 Occurrences starting 03/08/2024 until 04/07/2025 [facility] Work Phone: Comment on above: 1 Occurrences starting 03/08/2024 until 04/07/2025 End: 12-20-2023 Mra head w/o & w/contrast material MRV BRAIN WO/W IVCON Radiology Routine Idiopathic intracranial hypertension 1 Occurrences starting 11/20/2022 until 12/20/2023 [facility] Work Phone: Comment on above: 1 Occurrences starting 11/20/2022 until 12/20/2023 Myoglobin [Mass/volu me] in Serum or Plasma [facility] Nebulizer therapy HHN Treatment Respiratory Care Routine TID until discontinued starting 01/07/2021 [facility] Work Phone: Comment on above: TID until discontinued starting 01/08/20 21 Nuclear Ab [Titer] i n Serum [facility] Nucleated cells [#/v olume] in Cerebral spinal fluid by Manual count [facility] Work Phone: Oxygen therapy [Mini mum Data Set] [facility] [place], [place] Comment on above: Daily until discontinued starting 2020 Daily until disconti nued starting 01/07/2021 Daily until disconti nued starting 01/31/2021 Oxygen therapy [Mini mum Data Set] Initiate Oxygen Therapy Protocol Respiratory Care Routine As Needed until discontinued starting 09/18/2023 [facility] Work Phone: Comment on above: As Needed until discontinued starting Patient Education [facility] Work Phone: Patient referral [facility] Work Phone: Phase I & II - meter ed glucose Phase I & II - metered glucose Point of Care Testing Routine As Needed until discontinued starting 09/28/2020 [employer] ALSAJI Comment on above: As Needed until discontinued starting End: 09-28-2020 , urine POCT , urine POCT Point of Care Testing Routine One Time for 1 Occurrences starting 09/28/2020 until 09/28/2020 [employer] [facility] Comment on above: One Time for 1 Occurrences starting 09/14 until 09/28/2020 End: 09-18-2023 , urine POCT , urine POCT Point of Care Testing Routine One Time for 1 Occurrences starting 09/18/2023 until 09/18/2023 [facility] [employer] Comment on above: One Time for 1 Occurrences starting 01/2024 until 09/18/2023 Protein [Mass/volume ] in Cerebral spinal fluid [facility] Work Phone: Protein [Mass/volume ] in Serum or Plasma [facility] Protein [Mass/volume ] in Urine [facility] Reagin Ab [Presence] in Serum by RPR [facility] Red blood cell count [facility] Work Phone: Rheumatoid factor [Units/volume] in Serum or Plasma [facility] Serum immunofixation [facility] Sjogrens syndrome-A extractable nuclear Ab [Units/volume] in Serum [facility] Sjogrens syndrome-B extractable nuclear Ab [Units/volume] in Serum [facility] Helm extractable nu clear Ab [Units/volume] in Serum [facility] SPECIMEN VALIDITY, URINE SPECIME N VALIDITY, URINE Lab Routine Panic disorder 01/04/2024 10:20 AM EDT [facility] Spirometry panel Incentive pete metry Respiratory Care Routine Every 2hr while awake until discontinued starting 01/07/2021 [employer] Work Phone: Comment on above: Every 2hr while awake until discontinued starting 01/07/2021 Surgical Pathology Surgical Path ology Lab Routine Release Upon Ordering for 1 Occurrences starting 09/28/2020 [facility] [place] Comment on above: Release Upon Ordering for 1 Occurrences starting 09/28/[address] [facility] Work Phone: Comment on above: Release Upon Ordering for 1 Occurrences starting 07/11/2024, 1 completed Thrombin time [facility] US Breast - left limited US JORDYN ST LTD LEFT Radiology Routine Mass of upper outer quadrant of left breast 07/04/2024 12:13 PM EDT [facility] Immunizations Immunization Date Immunization Notes Care Provider Fa cili 04-29-2021 SARS-CoV-2 (COVID-19 ) mRNA BNT-162b2 vax Aimee Walker [facility] 04-08-2021 SARS-CoV-2 (COVID-19 ) mRNA BNT-162b2 vax Aimee Walker [facility] 07-23-2020 influenza virus vaccine, unspecified formulation Eileen Alvarez MD Work Phone: [facility] 07-09-2020 influenza nasal, unspecified formulation Elia Mechelle DO Work Phone: [facility] 07-09-2020 influenza virus vaccine, unspecified formulation Aimee Walker [facility] 07-09-2020 influenza, injectable, quadrivalent, preservative free Elia Mechelle DO Work Phone: [facility] 11-12-2000 hepatitis B vaccine, pediatric or pediatric/adolescent dosage Elia Mechelle DO Work Phone: [facility] 11-12-2000 measles, mumps and rubella virus vaccine Elia Mechelle DO Work Phone: [facility] NEGATED: Highlighted row has not occurred!07-21-2022 influenza virus vaccine, unspecified formulation Aimee Walker [facility] Payers Date Payer Category Payer Unknown [id number] 2024 Unknown 2023 Medicare (Managed Care) 1.2. [id number] 2023 Medicare [id number] 2021 Medicaid [place] [id number] 2021-Present [phone] [address] [place] [address] Medicaid [id number] 2021 Medicaid [id number] 2021 Medicare HUMANA MEDICARE HUMANA MEDICARE PPO [id number] 2021-Present [phone] [address] [address] [place] [address] PPO [id number] .[id number] 2020 Medicare [id number] 1.2.840.160249.1.13.239.2.7 .[id number] 2018 Medicare 1.2.840.110280. 1.13.159.2.7 .[id number] 2018 Medicare [id number] 1988 Unknown [id number] 2.16.840.1.913242.3.579.2.7 32 1988 Unknown [id number] 2.16.840.1.387264.3.579.2.1 77 1988 Unknown [id number] 2.16.840.1.382076.3.579.2.3 56 1988 Unknown [id number] 2.16.840.1.986011.3.579.2.5 93 1988 Unknown [id number] 2.16.840.1.621235.3.579.2.5 93 1988 Unknown [id number] 2.16.840.1.874110.3.579.2.5 93 1988 Unknown [id number] 2.16.840.1.041034.3.579.2.5 93 1988 Unknown [id number] 2.16.840.1.328707.3.579.2.5 93 1988 Unknown [id number] 2.16.840.1.856738.3.579.2.5 93 1988 Unknown [id number] 2.16.840.1.735346.3.579.2.5 93 1988 Unknown [id number] 2.16.840.1.181178.3.579.2.5 93 1988 Unknown [id number] 2.16.840.1.214747.3.579.2.5 93 1988 Unknown [id number] 2.16.840.1.434780.3.579.2.5 93 1988 Unknown [id number] 2.16.840.1.342655.3.579.2.5 93 1988 Unknown [id number] 2.16.840.1.053783.3.579.2.1 73 1988 Unknown [id number] 2.16.840.1.591131.3.579.2.1 73 1988 Unknown [id number] 2.16.840.1.165979.3.579.2.1 74 1988 Unknown [id number] 2.16.840.1.424028.3.579.2.1 74 1988 Unknown [id number] 2.16.840.1.026086.3.579.2.1 74 1988 Unknown [id number] 2.16.840.1.273166.3.579.2.7 27 1988 Unknown [id number] 2.16.840.1.021332.3.579.2.7 27 1988 Unknown [id number] 2.16.840.1.823453.3.579.2.7 27 1988 Unknown [id number] 2.16.840.1.115474.3.579.2.7 27 1988 Unknown [id number] 2.16.840.1.183852.3.579.2.7 27 1988 Unknown [id number] 2.16.840.1.195627.3.579.2.7 27 1988 Unknown [id number] 2.16.840.1.268635.3.579.2.1 246 1988 Unknown [id number] 2.16.840.1.941927.3.579.2.7 27 1988 Unknown [id number] 2.16.840.1.889765.3.579.2.7 27 1988 Unknown [id number] 2.16.840.1.539826.3.579.2.7 27 1988 Unknown [id number] 2.16.840.1.613833.3.579.2.7 27 1988 Unknown [id number] 2.16.840.1.963878.3.579.2.7 27 1988 Unknown [id number] 2.16.840.1.040891.3.579.2.1 1988 Unknown [id number] 2.16.840.1.004586.3.579.2.1 244 1988 Unknown [id number] 2.16.840.1.902674.3.579.2.7 27 1988 Unknown [id number] 2.16.840.1.860850.3.579.2.7 27 1988 Unknown [id number] 2.16.840.1.414118.3.579.2.7 27 1988 Unknown [id number] 2.16.840.1.191473.3.579.2.7 27 1988 Unknown [id number] 2.16.840.1.169257.3.579.2.7 27 1988 Unknown [id number] 2.16.840.1.573757.3.579.2.7 27 1988 Unknown [id number] 2.16840.1.988387.3.579.2.7 27 1988 Unknown [id number] 2.16.840.1.270537.3.579.2.7 27 1988 Unknown [id number] 2.16.840.1.700340.3.579.2.7 27 1988 Unknown [id number] 2.16.840.1.570021.3.579.2.7 27 1988 Unknown [id number] 2.16.840.1.048620.3.579.2.7 27 1988 Unknown [id number] 2.16.840.1.205635.3.579.2.7 27 1988 Unknown [id number] 2.16.840.1.877300.3.579.2.7 27 1988 Unknown [id number] 2.16.840.1.316412.3.579.2.7 27 1988 Unknown [id number] 2.16.840.1.654898.3.579.2.7 27 1988 Unknown [id number] 2.16.840.1.918541.3.579.2.7 27 1988 Unknown [id number] 2.16.840.1.016698.3.579.2.7 27 1988 Unknown [id number] 2.16.840.1.253023.3.579.2.7 27 1988 Unknown [id number] 2.16.840.1.077866.3.579.2.7 27 1988 Unknown [id number] 2.16.840.1.204054.3.579.2.7 27 1988 Unknown [id number] 2.16.840.1.199105.3.579.2.7 27 1988 Unknown [id number] 2.16.840.1.256590.3.579.2.7 27 1988 Unknown [id number] 2.16.840.1.959734.3.579.2.7 27 1988 Unknown [id number] 2.16.840.1.520566.3.579.2.7 27 1988 Unknown [id number] 2.16.840.1.543318.3.579.2.7 27 1988 Unknown [id number] 2.16.840.1.251841.3.579.2.7 27 1988 Unknown [id number] 2.16.840.1.856038.3.579.2.1 259 1988 Unknown [id number] 2.16.840.1.636843.3.579.2.1 259 1988 Unknown [id number] 2.16.840.1.436658.3.579.2.1 259 1988 Unknown [id number] 2.16.840.1.085255.3.579.2.1 259 1988 Unknown [id number] 2.16.840.1.230960.3.579.2.1 259 1959 Medicaid [id number] 1.2.840.749461.1.13.239.2.7 .3.970743.315 1959 Private Health Insurance [id number] Self-pay [id number] Private Health Insurance [employer] [facility] PF M [id number] Unknown [id number] 2.16.840.1.137641.3.579.2.5 31 Unknown [id number] 2.16.840.1.309833.3.579.2.5 31 Unknown [id number] 2.16.840.1.037087.3.579.2.5 31 Unknown [id number] 2.16.840.1.815590.3.579.2.5 31 Unknown [id number] 2.16.840.1.628507.3.579.2.5 31 Social History Date Type Detail Facility Start: 09-28-2020 End: 01-29-2022 Tobacco smoking status NHIS Former smoker [place] Start: 08-12-2022 End: 09-15-2024 History of tobacco use Current smoker [place] Start: 09-28-2020 End: 04-13-2025 Tobacco use and exposure Never used [place], [place] Start: 09-28-2020 End: 04-13-2025 Alcohol intake Current drinker of alcohol (finding) [place] Start: 09-28-2020 End: 07-03-2022 History SDOH Alcohol Frequency 1 [place] Start: 09-28-2020 Alcohol Comment rare [place] Start: 1990 Sex Assigned At Not on file [place] Start: 12-16-2021 End: 09-13-2024 Exposure to SARS-CoV-2 (event) Not sure [place] End: 03-14-2020 History of tobacco use Cigarette Smoker [employer] Phone: Start: 09-28-2020 Alcohol Comment rare [employer] Phone: Start: 12-26-2021 End: 04-13-2025 Tobacco smoking status NHIS Smokes tobacco daily [facility] Start: 12-26-2021 End: 04-13-2025 Cigarettes smoked current (pack per day) - Reported 1 [facility] Start: 03-18-2010 History SDOH Alcohol Comment beer and wine once a month [facility] Start: 07-01-2021 End: 02-17-2025 Tobacco smoking status Heavy tobacco smoker (finding) [facility] Tobacco smoking status Never [facility] Start: 07-03-2022 End: 04-13-2025 Sex Assigned At Female [facility] Start: 1990 Sex Assigned At Female [facility] Start: 07-03-2022 History SDOH Alcohol Frequency 5 [facility] Start: 07-03-2022 History SDOH Alcohol Std Drinks 4 [facility] Start: 07-03-2022 History SDOH Social Connections Get Together 2 [facility] Start: 07-03-2022 History SDOH Social Connections Living 3 [facility] Do you belong to any clubs or organizations such as worship groups, unions, fraternal or athletic groups, or school groups? No [facility] Are you now , , , , never or living with a partner? [facility] How often to you hav e a drink containing alcohol? 4 or more times a week [facility] How many standard dr inks containing alcohol do you have on a typical day? 7 to 9 [facility] How often do you hav e 6 or more drinks on 1 occasion? Daily or almost daily [facility] How hard is it for y ou to pay for the very basics like food, housing, medical care, and heating Not very hard [facility] Do you feel stress - tense, restless, nervous, or anxious, or unable to sleep at night because your mind is troubled all the time - these days [OSQ] To some extent [facility] (I/We) worried iqra er (my/our) food would run out before (I/we) got money to buy more. Sometimes true [facility] The food that (I/we) bought just didn't last, and (I/we) didn't have money to get more. Never true [facility] Start: 01-13-2022 Gender identity Identifies as female gender (finding) [facility] Start: 02-06-2022 Sexual orientation Heterosexual (finding) [facility] How often to you hav e a drink containing alcohol? Never [facility] Start: 12-10-2023 Tobacco smoking status NHIS Never smoked tobacco (finding) [facility] Do you feel stress - tense, restless, nervous, or anxious, or unable to sleep at night because your mind is troubled all the time - these days [OSQ] Only a little [facility] Start: 07-04-2024 Alcohol Comment 13 days sober- 07/04/2024 [facility] Start: 08-08-2024 Alcoholic beverage intake Lifetime non-drinker (finding) [facility] Work Phone: Start: 09-11-2024 Sexual orientation Choose not to disclose [facility] Work Phone: How many standard dr inks containing alcohol do you have on a typical day? 3 or 4 [facility] Start: 08-26-2013 End: 09-15-2024 Sex Female (finding) [facility] Sexual Orientation [facility] Medical Equipment Procedure Code Equipment Code Equipment Origin al Text Equipment Identifier Dates Breast Us Core B x Clip [id number] Start: 07-11-2024 Comment on above: Description: Ribbon clip Functional Status Date Assessment Result Facility 01-27-2025 Functional Status N/A [facility] 01-24-2025 Functional Status N/A [facility] 01-13-2025 Functional Status N/A [facility] 11-28-2024 Functional Status N/A [facility] 11-15-2024 Functional Status N/A [facility] 10-18-2024 Functional Status N/A [facility] 03-08-2024 Functional Status N/A [facility] 07-02-2023 Functional Status N/A [facility] 01-15-2023 Functional Status N/A [facility] 11-21-2022 Functional Status No [facility] 11-03-2022 Functional Status N/A [facility] 09-24-2022 Functional Status N/A [facility] 08-22-2022 Functional Status N/A [facility] 08-18-2022 Functional Status N/A [facility] 08-12-2022 Functional status Patient at Baseline [facility] Work Phone: 08-08-2022 Functional Status N/A [facility] 07-21-2022 Functional Status N/A [facility] 04-21-2022 Functional Status N/A [facility] 04-20-2022 Functional Status N/A [facility] 04-03-2022 Functional Status N/A [facility] Mental Status Date Assessment Result Facility 08-12-2022 Cognitive function Cognitive Sta tus Patient at Baseline [facility] Work Phone: Clinical Notes 12-24-2020 to 05-04-2025 Aaliyah Zamudio, DO - 05/04/2025 9:45 AM EDCameron Zamudio, DO - 04/13/2025 10:00 AM EDTShazia Elise OVER SHORT AND DAMAGE CLERK - 04/09/2025 10:45 AM EDT Note Date & Type Note Facility 05-04-2025 History of Present illness Narrative Images from the original note were not included. Shazia Isreal Chou 1990 Shazia L José Antonio is a 34 y.o. female presents with chief complaint of Left mamm/US results (C/o nipple pain ) HPI: CLEMENT Mccray states in June she felt a lump [...] any follow up imaging. She lives in [place] and wants to move her care closer [...] Day Physical Exam Exam conducted with a chemical analyst present. HENT: Head: Normocephalic. 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 She was told to [...] with posterior depth with biopsy clip noted US NO MAMMOGRAPHIC EVIDENCE OF MALIGNANCY. SURGICAL [...] removal of the seed and original biopsy clip and that I will replace the original clip with new marking clips or a [employer] radiopaque suture. The patient is in agreement and arrangements have been made. documented in this encounter [facility] 04-26-2025 Radiology Diagnostic study note [facility] Main [place] [address] [place], [place] [id number] Ultrasound Report Signed Patient: Shazia Chou MR#: [id number] : 1990 Acct:[id number] Age/Sex: 34 / F ADM Date: 5 Loc: [place] Room: Type: REG CLI Attending Dr: Aaliyah Zamudio DO Ordering Provider: Aaliyah Zamudio DO Date of Service: 04/26/25 MM/MM diagnostic mammo LT w/CAD: follow up for Left breast Upper outer quadrant ([id number]) US/US breast LT limited: follow with mamm [...] Escalante M.D. 04/26/2025 10:15 AM Dictation Location: [facility] Tech: Shazia MullenSkip Vaughn Transcribed By: MARKY 04/26/25 1015 Dictated By: Denny Escalante MD 04/26/25 1009 Signed By: 04/26/25 1015 [facility] Work Phone: 04-13-2025 History of Present illness Narrative Images from the original note were not included. Shazia Chou 1990 Shazia Chou is a 34 y.o. female presents with chief complaint of Left breast hypertrophy HPI: HPI Shazia states in June she felt a lump in the left breast, which was biopsied at the [facility] and diagnosed with PASH. She states she can feel the mass and it hurts. She was told at the time to watch the mass and she was never seen by a breast surgeon. She was told to keep an eye on it and did not request any follow up imaging. She lives in [place] and wants to move her care closer [...] Day Physical Exam Exam conducted with a chemical analyst present. HENT: Head: Normocephalic. 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 She was told to [...] imaging is completed. documented in this encounter [facility] 04-09-2025 History of Present illness Narrative Images from the original note were not included. [address] , [address] [facility], [address] P: [phone] F: [phone] HPI Historian of HPI: patient Shazia Chou [...] Shazia Elise NP documented in this encounter [facility] 03-29-2025 Note Pulmonology Office/Shaneka umaña Note [...] Narcisa BHAKTA, Sami Longoria, PUL, GREER [address] [facility] [place] [address]- Additional Instructions: after his testing is completed [...] plantar fasciotomy (02/16/20 (more content not included)... [facility] Comment on above: Result Comment: Elec tronically Signed By: Narcisa BHAKTA, Sami Longoria\.br\Date and Time Signed: 03/29/25 11:39 EDT 03-09-2025 Evaluation + Plan note Extrac caitlin from: Title:chronic pain Author:Talib Eckert Rox Date:03/09/25 Patient is presenting with a history [...] Rest/Stress-Res Appointment Date:03/13/2025 12:30:00 PM Scheduled Provider: Location[facility] Appointment Type:NM Myocard Spect Multi Rest/Stress - R Appointment Date:03/13/2025 01:00:00 PM Scheduled Provider: Location:[facility] Appointment Type:NM Myocard Spect Multi Rest/Stress-Str Appointment Date:03/13/2025 02:00:00 PM Scheduled Provider: Location:[facility] Appointment Type:NM Myocar Spect Multi Rest/Stress - St Appointment Date:03/16/2025 02:30:00 PM Scheduled Provider:Jak Peace MD Location:.[facility]iology Clinic Appointment Type:Cardiology Follow Up (FT) Future Scheduled Tests Radiology* NM Myocardial Spect Rest/Stress 1 Day 03/13/25 [facility] 06-26-2025 NoteConsultation Note Patient is presenting with [...] call with any questions or concerns that arise.[facility]:Result Comment: Electronically Signed By: Babar [...] The patient agrees to continue currently prescribed/recommended therapies.[facility]: Result Comment: Electronically Signed By: Babar Mayers DO\Date and Time Signed: 03/03/25 08:46 [id number] Hospital Discharge instructions Patient Education 02/17/2025 21:08:51 [...] Follow these instructions at home: Medicines Take oltd-fgi-crnlrns and prescription medicines only as told by [...] provider. Document Revised: 01/09/2022 Document Reviewed: 01/09/2022 [employer] Patient Education 2023 [employer]. 02/17/2025 21:08:51 Acute Bronchitis, Adult Acute Bronchitis, [...] condition. 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 Avoid contact with people who have cold [...] it is easier to cough up. Take kyfp-cwh-sssytoa and prescription medicines only as told by [...] provider. Document Revised: 12/11/2022 Document Reviewed: 01/01/2022 [employer] Patient Education 2023 [employer]. Follow Up Care 02/17/2025 18:54:28 With:Jennie Durand Address: [address], [address], [address] [place] [address]- Business (1) When:02/20/2025 20:12:05 [facility] 06-06-2025 NoteED Patient Education Note Neurology Near-Syncope [...] these instructions at home: Medicines ??? Take axab-tul-weyuuzj and prescription medicines only as told by [...] provider. Document Revised: 01/09/2022 Document Reviewed: 01/09/2022 [employer] Patient Education ? 2023 [employer]. Pulmonary Medicine Acute Bronchitis, Adult Acute bronchitis [...] the common cold. ??? (more content not included)...[facility]06-02-[facility] Telephone encounter Note* Telephone Encounter - Tevin Carson DO - 02/13/2025 8:56 AM EDT Needs follow-up Tevin Carson DO [facility]06-02-2025 Miscellaneous Notes* Telephone Encounter - Tevin Carson DO - 02/13/2025 8:56 AM EDT Needs follow-up Teivn Carson DO * Telephone Encounter - Madeline Teixeira MA - 02/11/2025 10:13 AM EDT Last OV 07/25/2024 ..Pharmacy escripts requesting the following refill: Requested Prescriptions Pending Prescriptions Disp Refills lamoTRIgine (LAMICTAL) 25 mg tablet [Pharmacy Med Name: LAMOTRIGINE 25 MG TABLET] 360 tablet 0 Sig: TAKE 2 TABLETS BY MOUTH TWICE A DAY Please review and advise. Madeline Teixeira MA documented in [facility]25 Telephone encounter Note * Telephone Encounter - Madeline Teixeira MA - 02/11/2025 10:13 AM EDT Last OV 07/25/2024 ..Pharmacy escripts requesting the following refill: Requested Prescriptions Pending Prescriptions Disp Refills lamoTRIgine (LAMICTAL) 25 mg tablet [Pharmacy Med Name: LAMOTRIGINE 25 MG TABLET] 360 tablet 0 Sig: TAKE 2 TABLETS BY MOUTH TWICE A DAY Please review and advise. Madeline Teixeira MA [facility]05-30-2025 NoteEchocardiology Procedure Exam Date/Time Accession # Ordering Echo Transthoracic 02/09/2025 11:26 EDT [id number] MOLLY GREGORIO CNP Complete CPT code 13559 40704 Reason for Exam (Echo Transthoracic Complete) Palpitations R00.2 [place] [address] Adult Echocardiogram Report Name: SHAZIA CHOU Study Date: 02/09/2025 10:52 AM BP: 135/99 mmHg Patient Location: [facility] Ambulatory(s) [facility] HR: 65 : 1990 Gender: Female Height: [...] 2.8 l/min/m2 MINESH (HM): 25.0 ml/m2 LAVmax (): 50.0 ml LAVmin (): 19.0 ml Pat Height (): 170.0 cm Pat Weight (): 93.0 kg FINAL REPORT Dictated: 02/09/2025 10:52 am Fernandez Daniels MD Signed (Electronic Signature): 02/10/2025 11:27 am Signed by: Fernandez Daniels MD Transcribed by: MO Technologist: [facility]05-16-2025 Evaluation + Plan noteExtracted from: Title:Pain [...] to prevent future risk of falling. [facility] [id number] NoteConsultation Note Patient: SHAZIA CHOU Age: 34 [...] TID, # 90 tab(s), Refills(s) 2, Pharmacy: [facility]/pharmacy #[id number], 170, cm, 01/13/25 8:29:00 EDT, Height/Length Dosing, [...] All Problems Bipolar disorder / SNOMED CT 71200038 / Confirmed Pancreatic mass / SNOMED CT 1742575955 / Confirmed Smoker / SNOMED CT 952482561 / Confirmed Added secondary to documentation in Social History. Borderline personality disorder / SNOMED CT 40501114 / Confirmed History of bypass of stomach / SNOMED CT 8798570676 / Confirmed Vitamin D deficiency / SNOMED CT 82011103 / Confirmed Left breast mass / SNOMED CT 413696284 / Confirmed Hypertension / SNOMED CT 6591193301 / Confirmed Overweight (BMI 25.0-29.9) / SNOMED CT 2405499753 / Confirmed Muscle weakness-general / SNOMED CT 32340857 / Confirmed Chronic pain syndrome / SNOMED CT 4166736453 / Confirmed Iron deficiency anemia / SNOMED CT 880044234 / Confirmed noted in 09/16/2024 [facility] Records page 5. added per OP CDI policy. Alcohol abuse, uncomplicated / SNOMED CT 43943510 / Confirmed BMI 31.0-31.9,adult / SNOMED CT 883478746 / Confirmed Obesity (BMI 30-39.9) / SNOMED CT 641484692 / Confirmed Resolved: / SNOMED CT 164119745 Resolved: / SNOMED CT 241831653 Resolved: / SNOMED CT 876434154 Resolved: Alcohol abuse / SNOMED CT 27938742 Canceled: Anxiety and depression / SNOMED CT 38170910 Canceled: Plantar fasciitis of left foot / SNOMED CT 479300229 Canceled: Intracranial hypertension / SNOMED CT 742179106 Canceled: Smoker / SNOMED CT [id number] Added secondary to documentation in Social History. Canceled: Class 1 obesity with body mass index (BMI) of 32.0 to 32.9 in adult / SNOMED CT 1354959141 Canceled: Anxiety / SNOMED CT 55589975 Canceled: Depression / SNOMED CT 04045785 Canceled: Borderline personality disorder / SNOMED CT 52038868 Canceled: Class 1 obesity with body mass index (BMI) of 30.0 to 30.9 in adult / SNOMED CT 5812950039 Canceled: Former smoker / SNOMED CT 02192554 Canceled: Grief reaction / SNOMED CT 252966657 Canceled: Overweight with body mass index (BMI) of 29 to 29.9 in adult / SNOMED CT 8211396005 Canceled: Disorder of oral soft tissue / SNOMED CT 3962953948 Canceled: Intentional benzodiazepine overdose / SNOMED CT 5667348652 Canceled: Omental infarction / SNOMED CT 285693120 Canceled: Axillary (more content not included)...[facility] Comment on above:Result Comment: Electronically Signed By: Orlando Kate PA-C\.br\Date and Time Signed: 01/27/25 10:38 [id number] NoteOperative Report Diagnosis: m47.816, lumbar spondyloarthropathy Procedure: [...] The patient agrees to continue currently prescribed/recommended therapies.[facility] CenterComment on above: Result Comment: Electronically Signed By: Babar Mayers DO.benito\Date and Time Signed: 01/24/25 09:58 [id number] Evaluation + Plan noteExtracted from: Title:Pain Managment [...] treatments including physical therapy in the past, afre-bre-qsqskxc anti-inflammatory medications and the recent injection helped [...] Scheduled Provider: Location:[place]ICAL [place] Appointment Type:PT Julieta (FT) [facility] 05-02-2025 NoteConsultation Note Patient: SHAZIA CHOU Age: [...] been working full- time. She works at [employer] and they were running a special where they went back to the [employer] from the and she states that everybody was ordering [employer] and then everybody called off and she worked for over 12 hours. She states that it was miserable. At this time, she has back pain that she rates a 7/10 but it can get up to a 10/10 with walking, standing, being upright and active. She feels like the Lyrica did not help her so she went back to [facility]. She is using 600 mg usually only [...] BID, # 6 tab(s), Refills(s) 1, [id number] 162, cm, 08/08/22 9:11:00 EST, Height/Length Dosing, 83.1, kg, 08/08/22 9:11:00 EST, Weight Dosing pregabalin 50 mg Cap: 50 mg = 1 cap(s), Oral, BID, X 30 day(s), # 60 cap(s), Refills(s) 1, [id number], 170, cm, 11/15/24 13:59:00 EST, [...] All Problems Bipolar disorder / SNOMED CT 63070660 / Confirmed Pancreatic mass / SNOMED CT 4655520657 / Confirmed Smoker / SNOMED CT 764427687 / Confirmed Added secondary to documentation in Social History. Borderline personality disorder / SNOMED CT 32309275 / Confirmed History of bypass of stomach / SNOMED CT 9728530902 / Confirmed Vitamin D deficiency / SNOMED CT 35261422 / Confirmed Left breast mass / SNOMED CT 918404468 / Confirmed Hypertension / SNOMED CT 4083447038 / Confirmed Overweight (BMI 25.0-29.9) / SNOMED CT 3466276308 / Confirmed Muscle weakness-general / SNOMED CT 50315423 / Confirmed Chronic pain syndrome / SNOMED CT 5528077142 / Confirmed Iron deficiency anemia / SNOMED CT 597649766 / Confirmed noted in 09/16/2024 [facility] Records page 5. added per OP CDI policy. Alcohol abuse, uncomplicated / SNOMED CT 10812716 / Confirmed BMI 31.0-31.9,adult / SNOMED CT 073575538 / Confirmed Obesity (BMI 30-39.9) / SNOMED CT 814749294 / Confirmed Resolved: / SNOMED CT 621551798 Resolved: / SNOMED CT 986833454 Resolved: / SNOMED CT 978805531 Resolved: Alcohol abuse / SNOMED CT 83157557 Canceled: Anxiety and depression / SNOMED CT 16021297 Canceled: Plantar fasciitis of left foot / SNOMED CT 201015371 Canceled: Intracranial hypertension / SNOMED CT 508250049 Canceled: Smoker / SNOMED CT [id number] Added secondary to documentation in Social History. Canceled: Class 1 obesity with body mass index (BMI) of 32.0 to 32.9 in adult / SNOMED CT 7673704296 Canceled: Anxiety / SNOMED CT 60872330 Canceled: Depression / SNOMED CT 34722345 Canceled: Borderline personality disorder / SNOMED CT 80265018 Canceled: Class 1 obesity with body mass index (BMI) of 30.0 to 30.9 in adult / SNOMED CT 9529190396 Canceled: Former smoker / SNOMED CT 49690917 Canceled: Grief reaction / SNOMED CT 725021284 Canceled: Overweight with body mass index (BMI) of 29 to 29.9 in adult / SNOMED CT 6658698069 Cance (more content not included)...[facility] CenterComment on above: Result Comment: Electronically Signed By: Orlando Kate PA-C\.br\Date and Time Signed: 01/13/25 08:44 [id number] Evaluation + Plan noteExtracted from: Title:Bilateral lumbar [...] Date:01/27/2025 10:15:00 AM Scheduled Provider:Orlando Kate PA-C Location:[facility] Appointment Type:Pain Management - Follow Up (FT) [facility] 04-05-2025 Evaluation + Plan noteExtracted from: Title:Bilateral [...] PM Scheduled Provider:Babar Mayers DO Location:.[facility] [place] Appointment Type:Pain Management - Follow Up (FT) [...] Myocardial Spect Rest/Stress 1 Day 03/13/25 [facility] 03-17-2025 Evaluation + Plan noteExtracted from: Title:Left [...] Date:12/19/2024 10:15:00 AM Scheduled Provider:Orlando Kate PA-C Location:.[facility] [place] Appointment Type:Pain Management - Follow Up (FT) Future Scheduled Tests Radiology* US Abdomen, Limited 11/29/24 [facility] 03-17-2025 NoteOperative Report Diagnosis: m54.16, lumbar radiculopathy [...] and agrees to comply to currently prescribed/recommended therapies.[facility] Comment on above:Result Comment: Electronically Signed By: Babar Mayers DO.benito\Date and Time Signed: 11/28/24 10:22 [id number] NoteConsultation Note Patient: SHAZIA CHOU Age: 33 [...] all conservative treatments first. She has taken mqxx-uhc-mokvefu medication without any long-term relief. She states that her left leg pain affects her quality of life and affects her activities. 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 She is hopeful to be able to [...] All Problems Bipolar disorder / SNOMED CT 06364701 / Confirmed Pancreatic mass / SNOMED CT 7418298777 / Confirmed Smoker / SNOMED CT 523498459 / Confirmed Added secondary to documentation in Social History. Borderline personality disorder / SNOMED CT 14500307 / Confirmed History of bypass of stomach / SNOMED CT 3270212359 / Confirmed Vitamin D deficiency / SNOMED CT 95016920 / Confirmed Left breast mass / SNOMED CT 966778759 / Confirmed Hypertension / SNOMED CT 6530363603 / Confirmed Overweight (BMI 25.0-29.9) / SNOMED CT 9293617047 / Confirmed Muscle weakness-general / SNOMED CT 57467793 / Confirmed Chronic pain syndrome / SNOMED CT 5370488025 / Confirmed Iron deficiency anemia / SNOMED CT 396716148 / Confirmed noted in 09/16/2024 [facility] Records page 5. added per OP CDI policy. Alcohol abuse, uncomplicated / SNOMED CT 18872803 / Confirmed BMI 31.0-31.9,adult / SNOMED CT 959047119 / Confirmed Obesity (BMI 30-39.9) / SNOMED CT 680281111 / Confirmed Resolved: / SNOMED CT 691534116 Resolved: / SNOMED CT 948896945 Resolved: / SNOMED CT 252036548 Resolved: Alcohol abuse / SNOMED CT 67376908 Canceled: Anxiety and depression / SNOMED CT 60233575 Canceled: Plantar fasciitis of left foot / SNOMED CT 589045341 Canceled: Intracranial hypertension / SNOMED CT 239807808 Canceled: Smoker / SNOMED CT [id number] Added secondary to documentation in Social History. Canceled: Class 1 obesity with body mass index (BMI) of 32.0 to 32.9 in adult / SNOMED CT 4853804522 Canceled: Anxiety / SNOMED CT 54490635 Canceled: Depression / SNOMED CT 63612972 Canceled: Borderline personality disorder / SNOMED CT 75477093 Canceled: Class 1 obesity with body mass index (BMI) of 30.0 to 30.9 in adult / SNOMED CT 4364342730 Canceled: Former smoker / SNOMED CT 01322937 Canceled: Grief reaction / SNOMED CT 261081712 Canceled: Overweight with body mass index (BMI) of 29 to 29.9 in adult / SNOMED CT 8071427374 Canceled: Disorder of oral soft tissue / SNOMED CT 3750465906 Canceled: Intentional benzodiazepine overdose / SNOMED CT 2160117666 Canceled: Omental infarction / SNOMED CT 942396152 Canceled: Axillary lymphadenopathy / SNOMED CT 469621 Canceled: BMI 28.0-28.9,adult / SNOMED CT 2578579926 Canceled: Over weight / SNOMED CT 710197415 Canceled: Leukocytosis / SNOMED CT 831680085 Canceled: BMI 29.0-29.9,adult / SNOMED CT 9475408400 Canceled: Headache after spinal puncture / SNOMED CT 244013192 Canceled: Trapezius muscle spasm / SNOMED CT 1747160904 Canceled: Recovering alcoholic (more content not included)...[facility] CenterComment on above:Result Comment: Electronically Signed By: Orlando Kate PA-C\.br\Date and Time Signed: 11/15/24 14:14 [id number] Evaluation + Plan noteExtracted from: Title:Pain Managment [...] sooner if necessary. NOAH score: 42%. [facility] 02-04-2025 Evaluation + Plan noteExtracted from: Title:ED Note Author:Beto Shea PA-C te:10/18/24 Chronic pain (G89.29: Other chronic pain) Orders: ketorolac, 60 mg = 2 mL, Injection, IntraMuscular, Once PRN Pain, STAT, Start date 10/18/24 8:31:00 EST, 10/18/24 8:31:00 EST methocarbamol, 1,500 mg = 2 tab(s), Oral, TID, X 3 day(s), # 18 tab(s), Refills(s) 0, Pharmacy: [facility]/pharmacy #[id number], 170, cm, 10/18/24 8:12:00 EST, Height/Length Dosing, 90, kg, 10/18/24 8:12:00 EST, Weight Dosing predniSONE, 60 mg = 3 tab(s), Oral, Daily, X 7 day(s), # 21 tab(s), Refills(s) 0, Pharmacy: [facility]/pharmacy #[id number], 170, cm, 10/18/24 8:12:00 EST, Height/Length Dosing, 90, kg, 10/18/24 8:12:00 EST, Weight Dosing Future Appointments Appointment Date:11/18/2024 08:00:00 AM Scheduled Provider:KURT BALBUENA CNP Location:[facility] Appointment Type: Open [facility] 02-04-2025 Hospital Discharge instructions Patient Education [...] your skin (aromatherapy). Other treatments may include: Fsam-bjw-vjnfryv or prescription medicines. Color, light, or sound therapy. Local electrical stimulation. The electrical pulses help to relieve pain by temporarily stopping the nerve impulses that cause you to feel pain. Injections. These deliver numbing or pain-relieving medicines into the spine or the area of pain. Medicines Take rgxz-asq-rkghhrg and prescription medicines only as told by your health care provider. Ask your health care provider if the medicine prescribed to you: ?Requires you to avoid driving or using machinery. ?Can cause constipation. You may need to take these actions to prevent or treat constipation: ?Drink enough fluid to keep your urine pale yellow. ?Take uupr-oou-qamadja or prescription medicines. ?Eat foods that are [...] or 024. This is open 24 hours a day. Text the Crisis Text Line at 441273. This information is not intended to replace advice given to you by your health care provider. Make sure you discuss any questions you have with your health care provider. Document Revised: 04/22/2023 Document Reviewed: 03/25/2023 ElseSymplified Patient Education 2023 [employer] Follow Up Care 10/18/2024 08:05:45 With:KURT BALBUENA Address: [address] [place] [phone] Business (1) When:10/21/2024 08:32:28 [facility] 02-04-2025 NoteED Patient Education Note Mental and [...] skin (aromatherapy). Other treatments may include: ??? Btdq-wdl-insmkga or prescription medicines. ??? Color, light, or sound therapy. ??? Local electrical stimulation. The electrical pulses help to relieve pain by temporarily stopping the nerve impulses that cause you to feel pain. ??? Injections. These deliver numbing or pain-relieving medicines into the spine or the area of pain. Medicines ??? Take fsyl-wjo-kkmdlki and prescription medicines only as told by your health care provider. ??? Ask your health care provider if the medicine prescribed to you: ? Requires you to avoid driving or using machinery. ? Can cause constipation. You may need to take these actions to prevent or treat constipation: ? Drink enough fluid to keep your urine pale yellow. ? Take fbvw-atz-kxtxdiv or prescription medicines. ? Eat foods that [...] the National Suicide Prevention Lifeline at or 988. This is open 24 hours aday. ??? Text the Crisis Text Line at 401107. This information is not intended to replace advice given to you by your health care provider. Make sure you discuss any questions you have with your health care provider. Document Revised: 04/22/2023 Document Reviewed: 03/25/2023 Elsevier Patient Education ? 2023 [employer] 10-17-2024 NoteHNO ID: [id number] Author: MELISSA GOLD MA Service: ? Author Type: Sap Bw Developer Type: Progress Notes Filed: 10/17/2024 12:28 Note [...] or unnecessary to reach patient: Left message BarBird message sent HCC related Navigation Signature: Melissa Gold MA October 17, 2024 12:23 [facility]02-03-2025 History of Present illness Narrative* Melissa [...] or unnecessary to reach patient: Left message [employer] message sent HCC related Navigation Signature: Melissa Gold MA October 17, 2024 12:23 PM documented in this encounterK[facility]-2025 NotePatient Outreach (NETNAV) SHAZIA CHOU ([id number]) 1990 F Date Time Provider Department 10/17/24 MELISSA GOLD During your visit today, we recorded the following information about you: Melissa Gold MA 10/17/2024 12:28 PM Signed POPULATION HEALTH NAVIGATION OUTREACH Action/ Topic Due (Y or N) Comments Medicare Wellness Y PCP Follow up Y Mammogram N Colorectal Cancer Screening N A1C N Controlling BP N Dilated Retinal Exam ([place]) N KED (UACR and eGFR) N HCC Y Flu Vaccine Y Care Everywhere Reviewed DONE [employer] Activation ACTIVE Updated Appointment Note N/A Reason for Outreach Care Gap/HCC or Scheduling Wellness Visits Care Gaps due: Medicare Annual Wellness Visit Follow-up Appointment Flu Vaccine Patient Contacted: Unable or unnecessary to reach patient: Left message [employer] message sent HCC related Navigation Signature: Melissa [...] mg by mouth daily at bedtime. - jrohrngyaict-fhs-yxdc-FA-vit K (BARIATRIC MULTIVITAMINS) 45 mg iron- 800 [...] 03/08/2024 Encounter Status:Closed by MELISSA GOLD on 10/17/24[facility]01-31-2025 NotePatient Education Mental and Behavioral Health Binge-Drinking [...] plan to use machinery, such as a director phone or power tool. ? You have a [...] National Drug and Alcohol Treatment Referral Service: 2-392-541-HELP (2805) ??? Alcoholics Anonymous, Alcoholics Resource Center: ??? Substance Abuse and Mental Health Services Administration: samhsa.gov Where to find more information: ??? Centers for Disease Control and Prevention: cdc.gov ??? National [place] on Alcohol Abuse and Alcoholism: niaaa.nih.gov/alcohol Contact [...] the National Suicide Prevention Lifeline at or 135. This is open 24 hours aday. ??? Text the Crisis Text Line at 157738. Summary ??? Binge-drinking refers to drinking a large amount of alcohol in a short time. This is usually 5 drinks for men or 4 drinks for women, on one occasion. ??? Binge-drinking can lead to serious health problems, such as heart dise (more content not included)...[facility]01-17-2025 NotePatient Education Mental and Behavioral Health Chronic [...] skin (aromatherapy). Other treatments may include: ??? Tidv-xlv-atmzvto or prescription medicines. ??? Color, light, or sound therapy. ??? Local electrical stimulation. The electrical pulses help to relieve pain by temporarily stopping the nerve impulses that cause you to feel pain. ??? Injections. These deliver numbing or pain-relieving medicines into the spine or the area of pain. Medicines ??? Take tjsb-wwu-zxzowsb and prescription medicines only as told by your health care provider. ??? Ask your health care provider if the medicine prescribed to you: ? Requires you to avoid driving or using machinery. ? Can cause constipation. You may need to take these actions to prevent or treat constipation: ? Drink enough fluid to keep your urine pale yellow. ? Take pzww-bcz-ydlevot or prescription medicines. ? Eat foods that [...] the National Suicide Prevention Lifeline at or 439. This is open 24 hours aday. ??? Text the Crisis Text Line at 571888. This information is not intended to replace advice given to you by your health care provider. Make sure you discuss any questions you have with your health care provider. Document Revised: 04/22/2023 Document Reviewed: 03/25/2023 ElseSymplified Patient Education ? 2023 [employer].[facility] 09-27-2024 History of Present illness Narrative* Corby Larsen DO - 09/27/2024 2:00 PM EST Images from the original note were not included. Reason for Appointment: EMG Patient: Shazia Chou : 1990 EMG Computer: [employer] Referring Physician: Dr. Corby Larsen EMG: MILTON craft manager: Saúl DAWN(R) Office Location: [facility] Reason for EMG: c/o weakness in bilateral [...] nature of the test. documented in this encounterHarry S. Truman Memorial Veterans' HospitalAouyjqpyqx37-18-0129 History of Present illness Narrative* Corby Larsen [...] typically knows very well. She works at [employer] and will forget what goes on [employer] at times. She also reports lower back [...] , wrist extensors , wrist flexor , freight conductor strength 5/5. LUE Strength deltoid , biceps , triceps , wrist extensors , wrist flexor , freight conductor strength 5/5. RLE Strength illopsoas, quadriceps, tibialis [...] lower extremities on 07/09/23: Normal [place] [facility] [place]: Opening pressure of 23 cm of CSF, CSF testing was unremarkable MRI brain and MR venogram on 08/11/22 [place] [facility]: unremarkable. Assessment/Plan Diagnoses and all orders for this visit: Ataxia It is my impression that patient has abnormal ianysv-oa-ulsl testing and feels like she is walking [...] without contrast. We will do this at [facility] [place]. Paresthesia Patient continues to complain [...] of mental health issues documented in this encounterHarry S. Truman Memorial Veterans' HospitalMqufeapono18-42-2295 Evaluation + Plan note Diagnostic Tests Pending * Vitamin A Level 09/20/24 [facility] 01-02-2025 Radiology Diagnostic study [facility] [place] [address] CT Scan Report Signed Patient: Shazia Chou MR#: [id number] : 1990 Acct:[id number] Age/Sex: 33 / F ADM Date: 5 Loc: ER Room: Type: [facility] ER Attending Dr: Copies to: Sailaja Anderson APRN~ Ordering Provider: Sailaja Anderson APRN Date of Service: 09/15/24 CT/CT angio head: weakness ([id number]) CT/CT angio neck: weakness ([id number]) CT/CT head/brain wo con: weakness CT head/brain [...] Wiley Shetty M.D.09/15/2024 3:56 PM Dictation Location: [place] Transcribed By: MARKY 09/15/24 1097 Dictated By: Wiley Shetty II, MD 09/15/24 1542 Signed By: 09/15/24 0697 [facility] Work Phone: [phone]) 237-108801-02-2025 NotePatient Education Mental and Behavioral Health Myofascial [...] these instructions at home: Medicines ??? Take ebjy-dzd-xunzcuu and prescription medicines only as told by your health care provider. ??? Ask your health care provider if the medicine prescribed to you: ? Requires you to avoid driving or using machinery. ? Can cause constipation. You may need to take these actions to prevent or treat constipation: ? Drink enough fluid to keep your urine pale yellow. ? Take jdmo-lld-oergqfl or prescription medicines. ? Eat foods that [...] ??? Do not use (more content not included)...[facility] 09-13-2024 Miscellaneous Notes* Result Encounter Note - Aleah Howard MD - 09/13/2024 9:45 AM EST Shazia your echocardiogram shows normal heart pump function and valves, we will discuss more at upcoming visit. documented in this encounterSelect [facility] Work Phone: [phone]) 719-832912-31-2024 Progress note* Result Encounter Note - Aleah Howard MD - 09/13/2024 9:45 AM EST Shazia your echocardiogram shows normal heart pump function and valves, we will discuss more at upcoming visit. [facility] Work Phone: [phone]) 960-482612-23-2024 Telephone encounter Note* Telephone Encounter - Hilda Lemos RN - 09/05/2024 10:07 AM EST S- patient asked PCP to review labs B- recent ER visit 08/27/24 A- uploaded care everywhere. ER follow up phone call. R- Follow up scheduled 09/13 At [place] and [facility]. Lipase 271 at [place] Concerned about [place] and [place] reports. Patient will screenshot and send her lab work from the other hospitals in a [employer] message CALL FOR ER FOLLOW UP: On this date and time, Shazia was seen at 08/27/24 at [facility] 08/22/24 at [facility] How is patient doing now? Lipase 271 at [place] Concerned about [place] and [place] reports. Patient will screenshot and send her [...] updated care everywhere. RX: none Hilda KHALIL plant production worker of Dr. Carson [facility] [address] [place] [address] phone [phone] fax [facility]12-23-2024 Miscellaneous Notes* Telephone Encounter - Hilda Lemos RN - 09/05/2024 10:07 AM EST S- patient asked PCP to review labs B- recent ER visit 08/27/24 A- uploaded care everywhere. ER follow up phone call. R- Follow up scheduled 09/13 At [facility]. Lipase 271 at [place] Concerned about [place] and [place] reports. Patient will screenshot and send her lab work from the other hospitals in a message CALL FOR ER FOLLOW UP: On this date and time, Shazia was seen at 08/27/24 at [facility] 08/22/24 at [facility] How is patient doing now? Lipase 271 at [place] Concerned about [place] and [place] reports. Patient will screenshot and send her [...] updated care everywhere. RX: none Hilda KHALIL plant production worker of Dr. Carson [facility] [address] [place] [address] phone [phone] fax documented in this encounterKet[facility]12-12-2024 NoteHNO ID: [id number] Author: MARY JO TRINIDAD RN Service: ? [...] Chart review only. Signature: Mary Jo Trinidad RNThe [facility]health [facility]12-12-2024 History of Present illness Narrative* Mary Jo [...] No, Chart review only. Signature: Mary Jo Trinidad, RN documented in this encounterKettering Health [facility]12-12-2024 NotePatient Outreach ([facility] SHAZIA CHOU ([id number]) 1990 F Date Time Provider Department 08/25/24 [...] Assessed Reason for Visit: ACM EDYTA RN [[id number]] Cmt: ED Utilization Review per request of [...] mg by mouth daily at bedtime. - ziuxgedrvnir-eqo-hzsy-FA-vit K (BARIATRIC MULTIVITAMINS) 45 mg iron- 800 [...] Encounter Status:Closed by MARY JO TRINIDAD on 08/25/24[facility]12-05-2024 Evaluation + Plan note Diagnostic Tests Pending * EBV Antibody Profile 08/18/24 * Jazmin Teixeira Ab Early Antigen 08/18/24 [facility] [id number] Telephone encounter Note* Telephone Encounter - Tevin Carson DO - 08/17/2024 3:12 PM EST The following approved medication requests have been transmitted electronically. Requested Prescriptions Pending Prescriptions Disp Refills lamoTRIgine (LAMICTAL) 25 mg tablet [Pharmacy Med Name: LAMOTRIGINE 25 MG TABLET] 360 tablet 0 Sig: Take 2 tablets by mouth two times a day. Tevin Carson DO [facility]12-04-2024 Miscellaneous Notes* Telephone Encounter - Tevin Carson DO - 08/17/2024 3:12 PM EST The following approved medication requests have been transmitted electronically. Requested Prescriptions Pending Prescriptions Disp Refills lamoTRIgine (LAMICTAL) 25 mg tablet [Pharmacy Med Name: LAMOTRIGINE 25 MG TABLET] 360 tablet 0 Sig: Take 2 tablets by mouth two times a day. Tevin Crason DO * Telephone Encounter - Jacinda Arreola MA - 08/17/2024 2:42 PM EST Pt last seen 07/25/24. Pharmacy electronically requesting refills as follows: Requested Prescriptions Pending Prescriptions Disp Refills lamoTRIgine (LAMICTAL) 25 mg tablet [Pharmacy Med Name: LAMOTRIGINE 25 MG TABLET] 360 tablet 1 Sig: TAKE 2 TABLETS BY MOUTH TWICE A DAY Please review and advise. Jacinda Arreola MA, documented in this encounterKettering Health [facility]12-04-2024 Telephone encounter Note * Telephone Encounter - Jacinda Arreola MA - 08/17/2024 2:42 PM EST Pt last seen 07/25/24. Pharmacy electronically requesting refills as follows: Requested Prescriptions Pending Prescriptions Disp Refills lamoTRIgine (LAMICTAL) 25 mg tablet [Pharmacy Med Name: LAMOTRIGINE 25 MG TABLET] 360 tablet 1 Sig: TAKE 2 TABLETS BY MOUTH TWICE A DAY Please review and advise. Jacinda Arreola MA, [facility]12-03-2024 NoteNormal sinus rhythm at 75 bpm normal intervals abnormal R wave progression cannot exclude previous anterior septal myocardial infarction, 1 ventricular premature beat is noted. 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 She is status post partial hysterectomy. [...] lamoTRIgine (LAMICTAL) 50 mg, 2 times daily apmnbhkowmsb-dvw-ayrl-FA-vit K (Bariatric Multivitamins) 45 mg iron- 800 [...] already been to the emergency room in [place] for her symptoms. Follow-up after testing Discussed the impact of nicotine. Will continue to address at every visit. She was advised and encouraged to work on nicotine cessation. Provider Attestation - Scribe documentation Scribe Attestation By signing my name below, IRita LPN , [place] attest that this documentation has been prepared under the direction and in the presence of Aleah Howard MD. All medical record entries made by the Scribe were at my direction and personally dictated by me. Charlene reviewed the chart and agree that the record accurately reflects my personal performance of the history, physical exam, discussion and plan. documented in this encounterSelect [facility] Work Phone: 1(131) 154-844711-25-2024 Instructions* Patient Instructions* Rita Knowles LPN - [...] Provided instructions on exercise. documented in this encounterSelect [facility] Work Phone: 1(635) 891-573711-11-2024 NoteHNO ID: [id number] Author: TEVIN CARSON, DO Service: ? Author Type: Physician Type: Progress Notes Filed: 07/25/2024 16:57 Note Text: [facility] Family Medicine Visit Assessment and [...] COMPLETE BLOOD COUNT AND DIFFERENTIAL Tevin Carson, 07/25/2024 Subjective This is a 33 year [...] appointment. She is scheduled to see a service control operator at for this. ROS: As per HPI. [...] Mood and Affect: Mood normal. Behavior: Behavior normal.[facility]11-11-2024 History of Present illness Narrative* Ledy Tevin, - 07/25/2024 3:07 PM EST [facility] Medicine Visit Assessment and Plan [...] appointment. She is scheduled to see a service control operator at for this. ROS: As per HPI. [...] normal. Behavior: Behavior normal. documented in this encounterKettering Health [facility]11-08-2024 Telephone encounter Note * Telephone Encounter - Tevin Carson DO - 07/22/2024 12:27 PM EST Agree with in office evaluation, needs to go to ED if symptoms worsen Tevin Carson DO [facility] Work Phone: [phone] 102-168611-08-2024 Miscellaneous Notes* Telephone Encounter - Tevin Carson [...] s/p hyster Protocols used: Anxiety and Panic Iyamic-DFTZG-VK Request/Response - Patient scheduled for ThursdayJul [address] Carson (20 minutes). Patient is alsoscheduled for 40 minutes on ThursdayJul [address] Carson. I did not cancel the Thursday appt in case a 40 min follow up would be appropriate. Please advise if needed. documented in this encounterKettering Health [facility]11-08-2024 Telephone encounter Note * Telephone Encounter - [...] s/p hyster Protocols used: Anxiety and Panic Lwpbjj-SUUEM-TS Request/Response - Patient scheduled for ThursdayJul [address] Carson (20 minutes). Patient is alsoscheduled for 40 minutes on ThursdayJul [address] Carson. I did not cancel the Thursday appt in case a 40 min follow up would be appropriate. Please advise if needed. [facility]11-08-2024 Telephone encounter Note* Telephone Encounter - Hilda Lemos RN - 07/22/2024 11:34 AM EST See nurse triage encounter. [facility]11-08-2024 Miscellaneous Notes* Telephone Encounter - Hilda Lemos RN - 07/22/2024 11:34 AM EST See nurse triage encounter. documented in this encounterKettering Health [facility]10-28-2024 Instructions* Patient Education - Ev Lindsey RT(R) - 07/11/2024 9:29 AM EDT Post procedure written instructions were given to patient. [facility]10-28-2024 Miscellaneous Notes* Patient Education - Ev Lindsey RT(R) - 07/11/2024 9:29 AM EDT Post procedure written instructions were given to patient. documented in this encounterKettering Health [facility]10-28-2024 NoteHNO ID: [id number] Author: EV LINDSEY RT(R) Service: Radiology Author Type: Nutrition Instructor Type: Patient Education Filed: 07/11/2024 09:29 Note Text: Post procedure written instructions were given to patient.[facility]10-21-2024 History of Present illness Narrative* Omar Soliman [...] PATIENT PRESENTS WITH AN IMPLANTABLE OR ATTACHED WINE MERCHANT: No RADIOLOGY DEPARTMENT: Mammography PERIPHERAL IV DATA: Not applicable SIGNED BY: Stewart Brewer July 04, 2024 12:32 PM documented in this encounterKettering Health Troy10-21-2024 NoteHNO ID: [id number] Author: OMAR SOLIMAN Mammo Tech Service: ? Author Type: Nutrition Instructor Type: Progress Notes Filed: 07/04/2024 12:32 Note Text: Radiology Service Progress Note PATIENT NAME: Shazia hCou DATE OF SERVICE: July 04, 2024 TIME: [...] PATIENT PRESENTS WITH AN IMPLANTABLE OR ATTACHED WINE MERCHANT: No RADIOLOGY DEPARTMENT: Mammography PERIPHERAL IV DATA: Not applicable SIGNED BY: Lourdes Brewero Dante July 04, 2024 12:32 [facility]10-21-2024 NoteHNO ID: [id number] Author: FATUMA TYLER APRN.ENERGY OPERATIONS VICE PRESIDENT Service: ? Author Type: Nurse Practitioner Type: Progress Notes Filed: 07/06/2024 08:25 Note Text: MEDICAL BREAST PATIENT NAME: Shazia Chou July 04, 2024 REFERRAL: She is self referred for an opinion regarding regarding LEFT breast painful lump and bloody nipple discharge HISTORY of PRESENT ILLNESS: Shazia Chou is a 33 year old premenopausal female who presents to the [facility] today for evaluation of left [...] Test performed by chemiluminescent immunoassay. Performed at [facility],[address] [place] [address] She takes a multivitamin daily. BMD: No PERSONAL BREAST HISTORY: Breast biopsy: No Breast cysts: No Breast surgery: No Breast cancer: No CANCER SURVEILLANCE: Mammograms: Date in [facility]: 12/09/23; results - Negative-Left breast only Breast MRI: Date in [facility]: 06/10/22; results - Negative Colonoscopy: No [...] discussed with the Patient or Patient's Authorized Auto Washer. As applicable, any other physician, advance practice provider, medical student, or other health professional student that will be observing or involved in (more content not included)...[facility]10-21-2024 History of Present illness Narrative* Fatuma Tyler APRN.IRENE - 07/04/2024 10:52 AM EDT MEDICAL BREAST PATIENT NAME: Shazia Chou July 04, 2024 REFERRAL: She is self referred for an opinion regarding regarding LEFT breast painful lump and bloody nipple discharge HISTORY of PRESENT ILLNESS: Shazia Chou is a 33 year old premenopausal female who presents to the [facility] today for evaluation of left [...] Test performed by chemiluminescent immunoassay. Performed at [facility] [place] [address] She takes a multivitamin daily. BMD: No PERSONAL BREAST HISTORY: Breast biopsy: No Breast cysts: No Breast surgery: No Breast cancer: No CANCER SURVEILLANCE: Mammograms: Date in [facility]: 12/09/23; results - Negative-Left breast only Breast MRI: Date in [facility]: 06/10/22; results - Negative Colonoscopy: No [...] discussed with the Patient or Patient's Authorized Auto Washer. Asapplicable, any other physician, advance practice provider, medical student, or other health professional student that will be observing or involved in the sensitive examination for educational or training purposes was discussed with the Patient or Authorized Auto Washer. The Patient or Authorized Auto Washer has agreed to proceed with the [...] which included preparing to see the patient, qqop-jp-wmmb patient care, completing clinical documentation, obtaining and/or reviewing separately obtained history, performing a medically appropriate examination, counseling and educating the patient/family/caregiver, ordering medications, tests, or procedures, and communicating results to the patient/family/caregiver. Fatuma Tyler APRN.IRENE Medical Breast Specialist July 04, 2024 CC: Tevin Carson [address] [place] [address] documented in this encounterKettering Health [facility]10-21-2024 Instructions* Patient Instructions* Naldo Borrego MA - [...] Tyler CNP, Medical Breast Specialist Sofia Shelton, AQUILINO [phone] ([place]) Naldo Borrego, Sap Bw Developer [phone] ([place]) documented in this encounterKettering Health [facility]10-18-2024 Instructions* Patient Instructions* Tevin Carson DO - [...] me in 1 month documented in this encounterKettering Health [facility]10-18-2024 NoteHNO ID: [id number] Author: TEVIN CARSON DO Service: ? Author Type: Physician Type: Progress Notes Filed: 07/01/2024 12:18 Note Text: [facility] Family Medicine Visit Assessment and [...] rhythm with sinus arrhythmia at 73 BPM, DE interval 138 ms, normal QRS, poor quality [...] - PTH INTACT - VITAMIN D 25 KRISHNA Carson, DO 07/01/2024 Subjective Patient is a [...] Cognition and Memory: Cognition normal. Comments: Slightly anxiousThe [facility]10-18-2024 History of Present illness Narrative* Tevin Carson - 07/01/2024 11:[address] [facility] Family Medicine Visit Assessment and [...] rhythm with sinus arrhythmia at 73 BPM, DE interval 138 ms, normal QRS, poor quality [...] INTACT - VITAMIN D 25 HYDROXY Tevin Ledy, DO 07/01/2024 Subjective Patient is a 33 [...] normal. Comments: Slightly anxious documented in this encounterKettering Health [facility]10-18-2024 Telephone encounter Note * Telephone Encounter - Naldo Borrego MA - 07/01/2024 10:23 AM EDT Shazia returned my call from yesterday about her appointment on Thursday. Patient stated that she had a mammogram and US done at [facility] recently because she felt a lump [...] to one anotheror not. 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 I asked her to arrive 30 minutes early to appointment so that we can start uploading the disk and she can fillout paperwork. She was appreciative for the call and information. Naldo Borrego MA [facility]10-18-2024 Miscellaneous Notes* Telephone Encounter - Naldo Borrego MA - 07/01/2024 10:23 AM EDT Shazia returned my call from yesterday about her appointment on Thursday. Patient stated that she had a mammogram and US done at [facility] recently because she felt a lump [...] to one anotheror not. 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 I asked her [...] me. Naldo Borrego MA documented in this encounterKettering Health [facility]10-17-2024 Telephone encounter Note * Telephone Encounter - Naldo Borrego MA - 06/30/2024 2:43 PM EDT I called and left a message for the patient regarding her appointment 07/04 [address] Mrs[address] Tyler in the breast center. I left my contact information for her to reach me. Naldo Borrego MA [facility]09-16-2024 NoteHNO ID: [id number] Author: ORLANDO MARTINEZ MA Service: ? Author Type: Sap Bw Developer Type: Progress Notes Filed: 05/30/2024 13:52 Note Text: POPULATION HEALTH NAVIGATION OUTREACH Action/FYI Patient called back and I scheduled her for a ED follow up with ENERGY OPERATIONS VICE PRESIDENT in office. Also scheduled patient for est care appointment. Updated PCP field PER Navigation rules. ACM Reason for Outreach Community Monitoring/Network Navigator Pools AND Phone Line: ACM Patient Contacted: Spoke to patient/parent/or legal guardian Patient identified by name and : Yes Community Monitoring/Network Navigator Pools AND Phone Line actions taken: Patient scheduled: ER Follow-up Establish Care Appointment 05/31/2024 in [facility] with LISHA BIANCHI - ED follow up 07/01/2024 in [facility] with TEVIN CARSON - est care 08/05/2024 in [facility] with ROBERTO MCKEON of pancreatic cancer, Phx of pancreatic mass Action taken: Marked in OnBase for Schedulers PCP field updated Navigation Signature: Orlando Martinez MA May 30, 2024 1:44 [facility]09-16-2024 History of Present illness Narrative* Orlando Martinez MA - 05/30/2024 1:37 PM EDT POPULATION HEALTH NAVIGATION OUTREACH Action/FYI Patient called back and I scheduled her for a ED follow up with ENERGY OPERATIONS VICE PRESIDENT in office. Also scheduled patient for est care appointment. Updated PCP field PER Navigation rules. ACM Reason for Outreach Community Monitoring/Network Navigator Pools & Phone Line: ACM Patient Contacted: Spoke to patient/parent/or legal guardian Patient identified by name and : Yes Community Monitoring/Network Navigator Pools & Phone Line actions taken: Patient scheduled: ER Follow-up Establish Care Appointment 05/31/2024 in [facility] with LISHA BIANCHI - ED follow up 07/01/2024 in [facility] with TEVIN CARSON est care 08/05/2024 in [facility] with ROBERTO MCKEON of pancreatic cancer, [...] patient to Network Navigation to schedule a [facility] ED 05/23/24 PCP follow-up appointment. Thank you 1st attempt- Called and left a voicemail for patient to call me back directly. Klinqt message sent Postponing for 2 days. [facility] Reason for Outreach [facility]/Network Navigator Pools & Phone Line: [facility] Patient Contacted: Unable or unnecessary to reach patient: Left message Hypiost message sent Navigation Signature: Orlando Martinez MA May 30, 2024 1:01 PM * Lenora Yee RN - 05/30/2024 12:40 PM EDTSummary: ED Utilization review per request of payer [facility] EDYTA RN Patient identified by name and date of . Reason for review or outreach: Chart Review Edyta Priority Emergency Department Utilization REQUESTED ACTION/FYI: Please see ED Utilization summary below: A follow-up appointment is not noted in patient's record. We are forwarding this patient to Network Navigation to schedule a [facility] ED 05/23/24 PCP follow-up appointment. Thank you Exclusion Criteria - Does not meet exclusion criteria ED DIAGNOSES/REASON(S) FOR ED USE: [place] ED OTHER FINDINGS/SUMMARY: Unable to locate ED discharge summary in Care everywhere Patient Attributed To: EULALIOE Payer: Mauricio HAMMOND Action Taken: Referrals/Routed: Population Health Navigation: Appointment. Router to ArriveBefore MONITORING PSS POOL [[id number]] Contact made with patient: No, Chart review only. Signature: Lenora KHALIL, RN, [facility] Primary Care Transitional Institutional Nutrition Consultant [facility] [phone] documented in this encounterKettering Health [facility]09-16-2024 NoteHNO ID: [id number] Author: ORLANDO MARTINEZ MA Service: ? Author Type: Sap Bw Developer Type: Progress Notes Filed: 05/30/2024 13:07 Note Text: POPULATION HEALTH NAVIGATION OUTREACH Action/FYI Reason for review or outreach: Chart Review Edyta Priority Emergency Department Utilization REQUESTED ACTION/FYI: Please see ED Utilization summary below: A follow-up appointment is not noted in patient's record. We are forwarding this patient to Network Navigation to schedule a [facility] ED 05/23/24 PCP follow-up appointment. Thank you 1st attempt- Called and left a voicemail for patient to call me back directly. Klinqt message sent Postponing for 2 days. ACM Reason for Outreach Community Monitoring/Network Navigator Pools AND Phone Line: ACM Patient Contacted: Unable or unnecessary to reach patient: Left message Hypiost message sent Navigation Signature: Orlando Martinez MA May 30, 2024 1:01 [facility]09-16-2024 NoteHNO ID: [id number] Author: LENORA YEE RN Service: ? Author [...] patient to Network Navigation to schedule a [facility] ED 05/23/24 PCP follow-up appointment. Thank you Exclusion Criteria - Does not meet exclusion criteria ED DIAGNOSES/REASON(S) FOR ED USE: [facility] OTHER FINDINGS/SUMMARY: Unable to locate ED discharge summary in Care everywhere Patient Attributed To: QAE Payer: Mauricio HAMMOND Action Taken: Referrals/Routed: Population Health Navigation: Appointment. Router to [facility] [[id number]] Contact made with patient: No, Chart review only. Signature: Lenora KHALIL, RN, [facility] Primary Care Transitional Institutional Nutrition Consultant [facility] [phone] [facility]09-16-2024 NotePatient Outreach ([facility]) SHAZIA CHOU ([id number]) 1990 F Date Time Provider Department 05/30/24 LENORA YEE [facility] During your visit today, we recorded the [...] record. We are forwarding this patient to [employer] to schedule a [facility] ED 05/23/24 PCP follow-up appointment. Thank you Exclusion Criteria - Does not meet exclusion criteria ED DIAGNOSES/REASON(S) FOR ED USE: [facility] OTHER FINDINGS/SUMMARY: Unable to locate ED discharge summary in Care everywhere Patient Attributed To: QAE Payer: Mauricio HAMMOND Action Taken: Referrals/Routed: Population Health Navigation: Appointment. Router to [facility] [[id number]] Contact made with patient: No, Chart review only. Signature: Lenora KHALIL, RN, [facility] Primary Care Transitional Institutional Nutrition Consultant [facility] [phone] DanielOrlando jennings MA 05/30/2024 1:07 PM Addendum POPULATION HEALTH NAVIGATION OUTREACH Action/FYI Reason for review or outreach: Chart Review Edyta Priority Emergency Department Utilization REQUESTED ACTION/FYI: Please see ED Utilization summary below: A follow-up appointment is not noted in patient's record. We are forwarding this patient to Network Navigation to schedule a [facility] ED 05/23/24 PCP follow-up appointment. Thank you 1st attempt- Called and left a voicemail for patient to call me back directly. Klinqt message sent Postponing for 2 days. ACM Reason for Outreach Community Monitoring/Network Navigator Pools AND Phone Line: ACM Patient Contacted: Unable or unnecessary to reach patient: Left message Civ[employer] message sent Navigation Signature: Orlando Martinez MA May 30, 2024 1:01 PM Orlando Martinez MA 05/30/2024 1:52 PM Addendum POPULATION HEALTH NAVIGATION OUTREACH Action/FYI Patient called back and I scheduled her for a ED follow up with ENERGY OPERATIONS VICE PRESIDENT in office. Also scheduled patient for est care appointment. Updated PCP field PER Navigation rules. ACM Reason for Outreach Community Monitoring/Network Navigator Pools AND Phone Line: ACM Patient Contacted: Spoke to patient/parent/or legal guardian Patient identified by name and : Yes Community Monitoring/Network Navigator Pools AND Phone Line actions taken: Patient scheduled: ER Follow-up Establish Care Appointment 05/31/2024 in [facility] with LISHA BIANCHI - ED follow up 07/01/2024 in [facility] with TEVIN CARSON - est care 08/05/2024 in [facility] with ROBERTO MCKEON - Fhx of [...] Date Reviewed: 03/08/2024 Reviewed by: Sofia Benavidez, AQUILINO - Fully Assessed Reason for Visit: ACM EDYTA RN [[id number]] Cmt: ED Utilization review per request of [...] mg by mouth daily at bedtime. - cxuznuovkjlw-fuj-lfjs-FA-vit K (BARIATRIC MULTIVITAMINS) 45 mg iron- 800 mcg-120 mcg cap Take by mouth. Problem List As Of Date 05/30/2024 Noted Resolved Poor growth, affecting management of moth*07/03/2008 03/08/2024 Idiopathic intracranial hypertension [G93.2] 11/20/2022 Primary hypertension [I10] 11/20/2022 03/08/2024 Depression [F32.A] 11/20/2022 Hx of gastric bypass [Z98.84] 11/20/2022 H/O foot surgery [Z98.890] 11/20/2022 Bipolar affective d (more content not included)...[facility] 05-12-2024 NoteHNO ID: [id number] Author: ?, ?, ? Service: ? Author Type: ? Type: Progress Notes Filed: 05/12/2024 17:42 Note Text: MCM sent to pt advising her that her Breast MRI has still not been scheduled. Pancreas was completed. Kimberli Malave PSSThe [facility]08-[facility] History of Present illness Narrative* Lauren Capellan LPN - 04/26/2024 3:43 PM EDT Outreach message sent documented in [facility] [place]24 NoteHNO ID: [id number] Author: LAUREN CAPELLAN LPN Service: ? Author Type: LICENSED NURSE Type: Progress Notes Filed: 04/26/2024 15:43 Note Text: Outreach message sentThe [facility] NotePatient Outreach ([facility] SHAZIA CHOU ([id number]) 1990 F Date Time Provider Department 04/26/24 ELIA BAIRES [facility] During your visit today, [...] Date Reviewed: 03/08/2024 Reviewed by: Sofia Benavidez, AQUILINO - Fully Assessed Prescriptions as of 04/26/2024 [...] mg by mouth daily at bedtime. - iyefarzzhbsl-sdo-brrr-FA-vit K (BARIATRIC MULTIVITAMINS) 45 mg iron- 800 [...] 03/08/2024 Encounter Status:Closed by LAUREN CAPELLAN on 04/26/24[facility] 03-08-2024 Hospital Discharge instructions Patient Education 03/08/2024 [...] Follow these instructions at home: Medicines Take qqdq-vmn-gwyhexz and prescription medicines only as told by your health care provider. Ask your health care provider if the medicine prescribed to you: ?Requires you to avoid driving or using heavy machinery. ?Can cause constipation. You may need to take these actions to prevent or treat constipation: ?Drink enough fluid to keep your urine pale yellow. ?Take fyht-wmt-zpyrnvz or prescription medicines. ?Eat foods that are [...] provider. Document Revised: 12/08/2022 Document Reviewed: 01/24/2020 [employer] Patient Education 2022 [employer]. 03/08/2024 15:36:59 Head Injury, Adult Head Injury, [...] Ask your health care provider for a txfc-kl-pikc plan for gradually returning to activities. Ask [...] family, a trusted colleague, and forming process line worker about your injury, symptoms, and restrictions. Have them watch for any new or worsening problems. General instructions Take qbxy-jrj-hzccggn and prescription medicines only as told by [...] provider. Document Revised: 07/13/2020 Document Reviewed: 07/13/2020 [employer] Patient Education 2022 [employer] 03/08/2024 15:36:59 Muscle Strain Muscle Strain [...] is not too tight. General instructions Take vhes-zij-nlbdcqj and prescription medicines only as told by [...] provider. Document Revised: 11/18/2021 Document Reviewed: 11/18/2021 [employer] Patient Education 2022 [employer]. Follow Up Care 03/08/2024 13:07:25 With:David Zazueta Address: [address], [address] [place] [phone] Business (1) When:03/11/2024 15:24:14 With:Jennie Durand Address: [address] [place] [address]- Business (1) When:Within 3 Day(s) [facility]06-25-2024 History of Present illness Narrative* Sofia Benavidez [...] 2024 TIME: 10:01 AM * Mirlande Diaz raw stock machine loader - 03/08/2024 10:00 AM EDT Radiology Service [...] PATIENT PRESENTS WITH AN IMPLANTABLE OR ATTACHED WINE MERCHANT: No RADIOLOGY DEPARTMENT: MR; Exam(s) Completed: Body: Pancreas/Biliary PERIPHERAL IV DATA: Site assessment: Clean,Dry and Intact, Site disposition Discontinued SIGNED BY: Mirlande Diaz raw stock machine loader March 08, 2024 10:35 AM documented in this encounterK[facility]tering [facility] [place]06-25-2024 NoteHNO ID: [id number] Author: MIRLANDE DIAZ raw stock machine loader Service: Radiology Author Type: Nutrition Instructor Type: Progress Notes Filed: 03/08/2024 10:36 [...] PATIENT PRESENTS WITH AN IMPLANTABLE OR ATTACHED WINE MERCHANT: No RADIOLOGY DEPARTMENT: MR; Exam(s) Completed: Body: Pancreas/Biliary PERIPHERAL IV DATA: Site assessment: Clean,Dry and Intact, Site disposition Discontinued SIGNED BY: Mirlande Diaz raw stock machine loader March 08, 2024 10:35 [facility]06-25-2024 NoteHNO ID: [id number] Author: SOFIA BENAVIDEZ RN Service: Nursing Author [...] Chou DATE: March 08, 2024 TIME: 10:01 [facility]06-25-2024 Instructions* Patient Instructions* Elia Baires DO - 03/08/2024 8:47 AM EDT 1) Schedule appointment with Austin Mata to discuss Adipex. 2) Schedule MRI of breast 3) I can refill the klonopin as needed. 4) Try steroid as needed twice daily 5) Follow-up in [address] Carson to establish care documented in this encounterKettering [facility] [place]06-25-2024 NoteHNO ID: [id number] Author: ELIA BAIRES DO Service: ? Author [...] was able to establish with psychiatry at [facility]. Says they stopped her Rexulti and switch to Lamictal 75 mg daily. Says this has dramatically improved her symptoms. Currently taking duloxetine 60 mg twice daily and trazodone 50 mg at bedtime. She says that she has only needed to use her clonazepam a few times a week. H (more content not included)...[facility]06-25-2024 History of Present illness Narrative* Elia Baires [...] was able to establish with psychiatry at [facility]. 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 Dr. gAuirre recommended serial imaging for February which she [...] updated today in the History tab of [employer]. REVIEW OF SYSTEMS: All other reviewed and [...] Dr. Elia Baires DO documented in this encounterK[facility]tering [facility] [place]04-22-2024 Instructions* Patient Instructions* Elia Baires DO - 01/04/2024 10:16 AM EDT 1) Give urine sample today. 2) Placed lab orders. Fast for 12 hours then get labs. 3) I would follow-up with your psychiatrist in January 4) Physical in 1-2 months. documented in this encounterKettering [facility] [place]04-22-2024 NoteHNO ID: [id number] Author: ELIA BAIRES DO Service: ? Author [...] She says that she is originally from [facility] however came up to here today [...] to establish with a new psychiatrist at [facility] in [place]. She also sees a counselor weekly. Current [...] No psychosis or maryam. Dr. Elia Baires, [facility] History of Present illness Narrative* Elia Baires, - 01/04/2024 9:46 AM EDT ASSESSMENT/PLAN: 1. [...] She says that she is originally from [facility] however came up to here today [...] to establish with a new psychiatrist at [facility] in [place]. She also sees a counselor weekly. Current [...] Dr. Elia Baires DO documented in this encounterK[facility] [place]01-05-2024 Hospital Discharge instructions* Discharge Instructions* Gamaliel Vickers [...] questions, PLEASE call your doctor or the [facility] at documented in this encounterC[facility] History of Present illness Narrative* Ce Bustamante RN - 09/16/2023 1:25 PM EST PAT phone call for /EGD completed with pt. Date/time/location (entrance C) of surgery/procedure verified with pt. NPO after MN status verified with pt. 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 Instructed pt to take a shower the AM of surgery/procedure and to avoid lotions, creams, jewelry. Encouraged pt to avoid artificial nails and/or nailpolish. Instructed pt to take BP meds with a small sip of water prior to procedure/surgery. 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 Jun, Smoker (ICD-10 - F17.200) [employer] Other 09-27-2023 NoteHNO ID: [id number] Author: Eileen Alvarez MD Service: ? Author Type: Physician Type: Progress Notes Filed: 06/10/2023 3:39 PM Note Text: [facility] Follow Up / Established Virtual Visit I have communicated my name and active licensure. The patient's identity and physical location were verified at the time of this visit. Either the patient or their legal sales representative jewelry has been informed of the risks and [...] due to congenital deformity, seen in the [facility] for: Idiopathic intracranial [...] due to congenital deformity, seen in the [facility] for: 1. Idiopathic [...] she agreed. She needs to follow with kiln car repairer every 6 months. In some patients with [...] her eyes. She has never seen an kiln car repairer. CSF protein 24, Glu 55, Pro 28, [...] cognition, memory, speech. Cr (more content not included)...[facility] [id number] Miscellaneous Notes * Telephone Encounter - Clara [...] A DAY IN A WEEK Pharmacy Name: [facility] Pharmacy Phone #: [phone] Fabby Cassidy documented in this encounterKettering [facility] [place]07-06-2023 Evaluation + Plan note Diagnostic Tests Pending * Zinc Level 03/19/23 * PTH Intact 03/19/23 * Vitamin A Level 03/19/23 * Vitamin B1 03/19/23 Future Scheduled Tests Laboratory* CBC w/ Auto Diff 07/21/22 Radiology* MA Mamm Screen w/CAD if perf and 3D Tanmay 04/21/22 [facility]05-04-2023 Hospital Discharge instructions Patient Education 01/15/2023 13:37:29 [...] Follow these instructions at home: Medicines Take qzvh-bzt-cazxlmx and prescription medicines only as told by [...] provider. Document Revised: 11/14/2021 Document Reviewed: 11/14/2021 [employer] Patient Education 2022 [employer]. Follow Up Care 01/15/2023 10:48:45 With:Jennie Durand Address: [facility] [address] [facility] [address] [place] [address] Business (1) When:01/18/2023 13:32:37 [facility]05-04-2023 Evaluation + Plan noteExtracted from: Title:ED Note [...] if perf and 3D Tanmay 04/21/22 [facility]03-31-2023 Miscellaneous Notes* Telephone Encounter - Clara Durbin RN - 12/12/2022 3:03 PM EDT Spoke with patient and informed that per [facility] pharmacy, there are remaining refills [...] A DAY IN A WEEK Pharmacy Name: [facility] Pharmacy Phone #: [phone] Fabby Cassidy documented in this encounterKettering Health [place]03-24-2023 Hospital Discharge instructions Patient Education 12/05/2022 12:15:12 Post Op Patient Instructions - FT (CUSTOM) 12/05/2022 12:15:12 BUSINESS CONSULT - Post Hysterectomy/Laparotomy/Major Surgery-Thiago (CUSTOM) Instructions post [...] Up Care 11/04/2022 14:01:47 With:Gal Das Address: [facility] [address] [address] Business (1) When:6 weeks With:Gal Das [facility] [address] [address] [employer] (1) When:2 weeks Comments:Call for any problems. [facility]03-24-2023 Evaluation + Plan noteExtracted from: Title:ANES Post-operative Note - General Author: Vu Maria Jr., DO Date:12/05/22 Plan Transfer/Discharge: Transfer/Discharge Discharge when meets criteria ( From PACU to Ambulatory Surgery Unit, and To home ). Extracted from: Title:ANES Pre-operative Note - Adult Author:Rufus shin Jr. Vu SNOWDEN Date:12/05/22 Plan [place] Society of Anesthesiologists (ASA) physical status classification: Class II. Anesthetic Preoperative Plan: Anesthesia General. Future Appointments Appointment Date:01/02/2023 10:00:00 AM Scheduled Provider:Nakia Shah Location:[facility] Appointment Type:FM Open Future Scheduled Tests Laboratory* CBC w/ Auto Diff 07/21/22 Radiology* MA Mamm Screen w/CAD if perf and 3D Tanmay 04/21/22 [facility]03-09-2023 NoteHNO ID: [id number] Author: Eileen Alvarez MD Service: ? Author Type: Physician Type: Progress Notes Filed: 11/20/2022 10:33 AM Note Text: [facility] New Patient Evaluation [...] due to congenital deformity, seen in the [facility] for: Idiopathic intracranial [...] her eyes. She has never seen an kiln car repairer. CSF protein 24, Glu 55, Pro 28, [...] due to congenital deformity, seen in the [facility] for: 1. Idiopathic [...] she agreed. She needs to follow with kiln car repairer every 6 months. In some patients with [...] --start acetazolamide (diamox 500m (more content not included)...[facility] [id number] Instructions* Patient Instructions* Eileen Alvarez MD - [...] up in 2-4 months documented in this encounterKettering Health [place]03-09-2023 History of Present illness Narrative* Eileen Alvarez MD - 11/20/2022 7:57 AM EST Images from the original note were not included. [facility] New Patient Evaluation [...] due to congenital deformity, seen in the [facility] for: Idiopathic intracranial [...] her eyes. She has never seen an kiln car repairer. CSF protein 24, Glu 55, Pro 28, [...] due to congenital deformity, seen in the [facility] for: 1. Idiopathic [...] she agreed. She needs to follow with kiln car repairer every 6 months. In some patients with [...] Take 40 mg by mouth once daily. srduwlckwuit-wwt-dolq-FA-vit K (BARIATRIC MULTIVITAMINS) 45 mg iron- 800 [...] % Lymph% 20 15.9 - 47.3 % Shaw[place]% 6 0.0 - 12.0 % Eosin% 3 0.0 - 6.6 % Baso% 1 0.0 - 1.2 % Abs Neut (ANC) 7.64 (H) 1.45 - 7.50 k/uL Abs Lymph 2.18 1.00 - 4.00 K/uL Abs Shaw[place] 0.65 0.00 - 0.86 k/uL Abs Eosin [...] which included preparing to see the patient, pwec-pu-ycpx patient care, completing clinical documentation, obtaining and/or reviewing separately obtained history, performing a medically appropriate examination, counseling and educating the pat ient/family/caregiver, ordering medications, tests, or procedures, independently interpreting results (not separately reported), communicating results to the patient/family/caregiver, and care coordination (not separately reported). Eileen Alvarez MD documented in this encounterKettering [facility] [place]02-20-2023 Hospital Discharge instructions Patient Education 11/03/2022 13:28:28 [...] height. This can be done either in [place] ([place].S[place] or metric measurements. Note that charts are available to help you find your BMI quickly and easily without having to do these calculations yourself. To calculate your BMI in Romanian ([place].S[place] measurements, your health care provider will: [...] medical problems. BMI can be measured using Romanian measurements or metric measurements. To interpret your [...] 05/12/2005 Document Revised: 08/13/2018 Document Reviewed: 07/14/2018 [employer] Patient Education 2020 [employer]. 11/03/2022 13:28:26 Tobacco Use Disorder Tobacco Use [...] reduces withdrawal symptoms. NRT is available as: ?Kwmf-jwk-yqlltic gums, lozenges, and skin patches. ?Prescription mouth [...] recovery for many people. General instructions Take axiv-qlt-utigilq and prescription medicines only as told by your health care provider. Check with your health care provider before taking any new prescription or qtse-rcz-ysyyugq medicines. Decide on a friend, family member, or smoking quit-line (such as 4-663-KMGQ-NOW in the [place] that you can call [...] 05/06/2005 Document Revised: 08/18/2018 Document Reviewed: 08/18/2018 [employer] Patient Education 2020 [employer]. 11/03/2022 13:28:23 Alcohol Abuse and Dependence Information, [...] find support Your health care provider. [facility]: www.smart[facility] medical centery.org Therapy and support groups Local treatment centers or chemical dependency counselors. Local AA groups in your community: www.aa.org Where to find more information Centers for Disease Control and Prevention: www.cdc.gov National [place] on Alcohol Abuse and Alcoholism: www.niaaa.nih.gov Alcoholics [...] 08/25/2017 Document Revised: 12/20/2019 Document Reviewed: 11/08/2019 [employer] Patient Education 2020 [employer]. 11/03/2022 13:28:19 BMI for Adults BMI for [...] height. This can be done either in Romanian ([place].S[place] or metric measurements. Note that charts are available to help you find your BMI quickly and easily without having to do these calculations yourself. To calculate your BMI in Romanian ([place] measurements, your health care provider will: [...] medical problems. BMI can be measured using Romanian measurements or metric measurements. To interpret your [...] 05/12/2005 Document Revised: 08/13/2018 Document Reviewed: 07/14/2018 [employer] Patient Education 2020 [employer]. 10/27/2022 11:56:27 Alcohol Abuse and Dependence Information, [...] for Disease Control and Prevention: www.cdc.gov National [place] on Alcohol Abuse and Alcoholism: www.niaaa.nih.gov Alcoholics [...] 08/25/2017 Document Revised: 12/20/2019 Document Reviewed: 11/08/2019 [employer] Patient Education 2020 [employer]. Follow Up Care 10/15/2022 11:28:56 With:Nakia Shah Address: [address] [place] [address] Ailyn, [facility] [place] [phone] When:Within 2 Month(s) Comments:f/u smoking cessation and BP [facility] 01-11-2023 Hospital Discharge instructions Patient [...] reduces withdrawal symptoms. NRT is available as: ?Oqcg-cmz-rkdmwqh gums, lozenges, and skin patches. ?Prescription mouth [...] recovery for many people. General instructions Take njlo-rjw-xomeqho and prescription medicines only as told by your health care provider. Check with your health care provider before taking any new prescription or tbil-ebp-vppfcyb medicines. Decide on a friend, family member, or smoking quit-line (such as 4-086-CUTN-NOW in the [place] that you can call [...] 05/06/2005 Document Revised: 08/18/2018 Document Reviewed: 08/18/2018 [employer] Patient Education 2020 [employer]. 09/24/2022 07:23:47 BMI for Adults BMI for [...] height. This can be done either in [place] ([place] or metric measurements. Note that charts are available to help you find your BMI quickly and easily without having to do these calculations yourself. To calculate your BMI in Romanian ([place] measurements, your health care provider will: [...] medical problems. BMI can be measured using Romanian measurements or metric measurements. To interpret your [...] 05/12/2005 Document Revised: 08/13/2018 Document Reviewed: 07/14/2018 [employer] Patient Education 2020 [employer]. 09/24/2022 07:23:45 Alcohol Use Disorder Alcohol Use [...] centers. Follow these instructions at home: Take wvvp-uhe-linmshs and prescription medicines only as told by [...] 10/08/2005 Document Revised: 08/13/2018 Document Reviewed: 05/28/2017 [employer] Patient Education [employer]. 09/24/2022 07:23:42 Borderline Personality Disorder, Adult Borderline [...] with BPD should do these things: Take lgsg-ivu-pxlgmns and prescription medicines only as told by [...] important. Where to find more information National [place] on Mental Illness: www.marivel.org [place]. National [place] of Mental Health: www.nimh.nih.gov Contact a health [...] 12/16/2011 Document Revised: 08/13/2018 Document Reviewed: 11/05/2017 [employer] Patient Education 2020 [employer]. 09/24/2022 07:23:39 Managing Bipolar Disorder Managing Bipolar [...] Follow these instructions at home: Medicines Take vxse-sqj-dsighpv and prescription medicines only as told by your health care provider or pharmacist. Ask your pharmacist what fjwo-cvp-cuxaaaf cold medicines you should avoid. Some medicines [...] Document Reviewed: 12/31/2017 Elsevier Patient Education 2020 [employer] Follow Up Care 09/16/2022 13:23:11 With:Aimee Walker CNP Address: [address] [place] [address] [place] [phone] When:3 months [facility] 12-09-2022 Hospital Discharge instructions Patient Education 08/22/2022 11:12:56 Tension Headache, Adult, Rmrk-iq-Dsjc Tension Headache, Adult A tension headache is pain, pressure, or aching in your head. Tension headaches can last from 30 minutes to several days. Follow these instructions at home: Managing pain Take mtwf-zww-dpsxsia and prescription medicines only as told by [...] 11/25/2010 Document Revised: 08/13/2018 Document Reviewed: 12/11/2017 [employer] Patient Education 2020 [employer]. Follow Up Care 08/14/2022 12:38:29 With:Rita SNOWDEN, IGGY Roberson, PED Address: [address] [place] [address] [facility] [place] [address] When:1 month only if needed Comments:40 mins [facility] 12-05-2022 Hospital Discharge instructions Patient [...] feet clean and dry. General instructions Take fwuu-qbe-rmnsnyd and prescription medicines only as told by [...] 09/26/2016 Document Revised: 06/16/2019 Document Reviewed: 06/16/2019 [employer] Patient Education 2020 [employer]. 08/18/2022 19:56:48 Foot Sprain Foot Sprain A [...] fully hardened. This may takeseveral hours. Take lnfx-zks-opuytww and prescription medicines only as told by [...] 02/20/2003 Document Revised: 09/04/2018 Document Reviewed: 09/04/2018 [employer] Patient Education 2020 [employer]. 08/18/2022 19:56:48 Elastic Bandage and RICE Therapy [...] limityour activities and whether you should start xdjun-cr-uwgtfl exercises for your injury. Ice Ice your [...] 02/20/2003 Document Revised: 05/21/2018 Document Reviewed: 05/21/2018 [employer] Patient Education 2020 [employer]. Follow Up Care 08/18/2022 17:21:15 With:Hilton Gillis Address: [address] [place] [phone]- Business (1) When:08/21/2022 19:10:21 With:Aimee Walker Address:Unknown When:Within 3 Day(s) [facility]11-29-2022 [facility] Progress note Author Lizzeth Malave [facility] August 12, 2022 10:46am Note Date/Time August 12, 2022 10:45am [facility] [address] [place] [id number] Hospitalist Progress Note Signed Patient: Shazia Chou MR#: [id number] : 1990 Acct:[id number] Age/Sex: 31 / F Adm Date: 2 Loc: 4N Room: 8Q8416-1 Type: ADM INOo Attending Dr: Lizzeth Malave MD Copies to: ~ Date of Service: 08/12/2022 Subjective Subjective Narrative: Shazia Chou is a 31yo F. She was transferred here last night from [facility] with worsening headache and blurry vision [...] Flu Vac Quad (36mon+)Pf 0.5 Ml Syringe [id number] IM 08/13/22 09:01 .ONCE ONE Omeprazole 20 [...] <Electronically signed by Lizzeth Malave MD> 08/12/22 [facility] Work Phone: 1(871) 436-961811-29-2022 Consult note Author Kenrick Lee [facility] August 12, 2022 4:21pm Note Date/Time August 12, 2022 8:13am [facility] [address] [place] [address] Neurology Consult Note Signed Patient: Shazia Chou MR#: [id number] : 1990 Acct:[id number] Age/Sex: 31 / F Adm Date: 2 Loc: Room: [address] [place] [address] Type: ADM INOo Attending Dr: Lizzeth Malave MD Copies to: Kenrick Kapler, EDINSON Tadeo MD~ HPI Consult Date: 08/12/22 Barrel Roller: ASTON Bro with Dr Lee Reason for consult: Headache, blurred vision Consult Narrative HPI: Patient is a 31-year-old female with medical history of bipolar, personality disorder, depression, and tobacco use in addition to 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 She has been seen in neurological consultation with request of the hospital service for headache and blurred vision. Patient initially presented to [facility] and was transferred to [facility] [facility]. She was seen in the [place] ER on 08/08/2022 with similar symptoms and [...] this is when she called EMS. At [facility] she had a CT scan of [...] 100 mg tablet 100 mg PO QHS 11/05/20 [History Confirmed 07/19/20] duloxetine 30 mg capsule,delayed [...] extremity from prior surgery CEREBELLAR EXAM: * Mzzrnn-vm-fkfh and alternating movements are intact and normal in bilateral upper extremities * Prwl-dv-gpyv and alternating movements are intact and normal [...] puncture based on these results. Evaluation at [facility]: * CT scan head is nonacute. [...] once daily). Okay for [facility]. Documented By: EDINSON Dias [id number] Signed By: <Electronically signed by EDINSON Niño> 08/12/22 0958 <Electronically signed by Kenrick Lee DO> 08/12/22 7851 [facility] Work Phone: [phone]) 171-929811-28-2022 History and physical note Author Sangeetha Peña [facility] August 11, 2022 9:43pm Note Date/Time August 11, 2022 9:08pm [facility] [address] [place] [address] Hospitalist H&P Signed Patient: Shazia Chou MR#: [id number] : 1990 Acct:[id number] Age/Sex: 31 / F Adm Date: 2 Loc: 4N Room: 3B7901-7 Type: ADM IN Attending Dr: Erin Barahona MD Copies to: MD Erin Mcwilliams MD~ HPI DATE OF EXAMINATION: 08/11/22 CHIEF COMPLAINT: Headache with blurry vision HISTORY OF PRESENT ILLNESS: Patient is a pleasant 31-year-old female with history of borderline personality disorder, bipolar disorder and depression. She was accepted by daytime hospitalist when contacted by [place] [facility] physician due to concern for headache [...] pain or dysuria. She was seenin the [place] on 08/08 with similar symptoms. She [...] vision: Plan Patient has been transferred from [place] ER when she presented with complaint of headache and blurry vision. During my evaluation her blood pressure is in 115 systolic and complaining of headache with blurry vision. Denies diplopia with no pain in extraocular movement. There is concern for possible idiopathic intracranial hypertension and patient has been transferred to [facility] for further management and neurology evaluation. [...] by Sangeetha Peña MD> 08/11/222142 [facility] Work Phone: 1(918) 980-693011-25-2022 Evaluation + Plan noteExtracted from: Title:ED Note Author:Bakari Chester DO Date:10/08/21 Asymptomatic hypertension (I 10: Essential (primary) hypertension) Headache (R51.9: Headache, unspecified) Orders: APAP/butalbital/caffeine, 1 cap(s), Oral, q4hr for headache, 12 cap(s), Refill(s) 0, [facility]/pharmacy #[id number], 162, cm, 08/08/22 9:11:00 EST, Height/Length Dosing, 83.1, kg, 08/08/22 9:11:00 EST, Weight Dosing ondansetron, 4 mg = 1 tab(s), Oral, q8hr, PRN Nausea/Vomiting, # 12 tab(s), Refills(s) 0, Pharmacy: [facility]/pharmacy #[id number], 162, cm, 08/08/22 9:11:00 EST, Height/Length Dosing, 83.1, kg, 08/08/22 9:11:00 EST, Weight Dosing Automated Diff Basic Metabolic Panel Beta hCG Qual CBC w/ Auto Diff CT Head or Brain w/o Contrast eGFR Influenza A&B Ag Rapid COVID Antigen ([facility] UA With Cult Reflex Future Scheduled Tests Laboratory* CBC w/ Auto Diff 07/21/22 Radiology* MA Mamm Screen w/CAD if perf and 3D Tanmay 04/21/22 [facility]11-25-2022 Hospital Discharge instructions Patient Education 08/08/2022 11:39:38 [...] health care provider to lose weight. Take vbmm-yon-yteddmv and prescription medicines only as told by [...] 11/09/2002 Document Revised: 08/13/2018 Document Reviewed: 07/22/2017 [employer] Patient Education 2020 [employer]. Follow Up Care 08/08/2022 09:04:11 With:Kenrick Lee Address: [address] [place] [address] [facility] (1) When:08/11/2022 11:38:22 Comments:Follow-up with Dr. Lee [...] develop any new or worsening symptoms. [facility]11-07-2022 Evaluation + Plan note Future Scheduled Tests Laboratory* CBC w/ Auto Diff 07/21/22 Radiology* MA Mamm Screen w/CAD if perf and 3D Tanmay 04/21/22 [facility] 11-07-2022 Evaluation + Plan note Future Scheduled Tests Laboratory* CBC w/ Auto Diff 07/21/22 [facility]11-07-2022 Hospital Discharge instructions Patient Education 07/21/2022 11:22:36 [...] Follow these instructions at home: Medicines Take vado-hzk-usfvyoz and prescription medicines only as told by your health care provider or pharmacist. Ask your pharmacist what xwkq-ewj-ecxrpzx cold medicines you should avoid. Some medicines [...] 12/31/2017 Document Revised: 12/23/2019 Document Reviewed: 12/31/2017 [employer] Patient Education 2020 [employer]. 07/21/2022 11:21:57 Tobacco Use Disorder Tobacco Use [...] reduces withdrawal symptoms. NRT is available as: ?Moin-bow-jquwier gums, lozenges, and skin patches. ?Prescription mouth [...] recovery for many people. General instructions Take znfi-zkh-vuswmir and prescription medicines only as told by your health care provider. Check with your health care provider before taking any new prescription or qzux-tcq-xbuofua medicines. Decide on a friend, family member, or smoking quit-line (such as 7-789-HHLK-NOW in the [place] that you can call [...] 05/06/2005 Document Revised: 08/18/2018 Document Reviewed: 08/18/2018 [employer] Patient Education 2020 [employer]. 07/21/2022 11:21:55 BMI for Adults BMI for [...] height. This can be done either in Romanian ([place] or metric measurements. Note that charts are available to help you find your BMI quickly and easily without having to do these calculations yourself. To calculate your BMI in Romanian ([place] measurements, your health care provider will: [...] medical problems. BMI can be measured using Romanian measurements or metric measurements. To interpret your [...] 05/12/2005 Document Revised: 08/13/2018 Document Reviewed: 07/14/2018 [employer] Patient Education 2020 [employer]. 07/21/2022 11:21:53 Leukocytosis Leukocytosis Leukocytosis means that [...] Follow these instructions at home: Medicines Take rsei-pqv-vawhbxe and prescription medicines only as told by [...] 08/19/2012 Document Revised: 05/26/2019 Document Reviewed: 05/26/2019 [employer] Patient Education 2020 [employer]. Follow Up Care 07/18/2022 10:46:12 With:Aimee Walker CNP Address: When: only if needed [facility] 11-04-2022 Miscellaneous Notes* Telephone Encounter - Cat Rojo LPN - 07/18/2022 11:04 AM EDT Call placed to patient, no answer. Left message for patient to proceed with nicotine testing prior to scheduling. Please transfer to plastic surgery nurse if patient returns call with questions. [facility] Evaluation + Plan note Future Scheduled Tests Radiology* MRI Breast w/o and w/ Contrast, Left 05/13/22 * MA Mamm Screen w/CAD if perf and 3D Tanmay 04/21/22 [facility] [id number] Hospital Discharge instructions Patient Education 05/13/2022 10:45:43 [...] ?Hypothyroidism. ?Polycystic ovarian syndrome (PCOS). ?Binge-eating disorder. ?Gordon syndrome. Taking certain medicines, such as steroids, [...] food choices, such as grocery stores and [employer]. What are the signs or symptoms? The [...] and how much exercise you get. Take rset-gkk-gfmgzzt and prescription medicines only as told by [...] 10/08/2005 Document Revised: 05/05/2019 Document Reviewed: 05/05/2019 [employer] Patient Education 2019 [employer]. [facility] [phone] Evaluation + Plan note Future Scheduled Tests Radiology* MA Mamm Screen w/CAD if perf and 3D Tanmay 04/21/22 [facility]08-08-2022 Hospital Discharge instructions Patient Education 04/21/2022 10:14:53 [...] height. This can be done either in Romanian ([place].S[place] or metric measurements. Note that charts are available to help you find your BMI quickly and easily without having to do these calculations yourself. To calculate your BMI in Romanian ([place] measurements, your health care provider will: [...] medical problems. BMI can be measured using Romanian measurements or metric measurements. To interpret your [...] 05/12/2005 Document Revised: 08/13/2018 Document Reviewed: 07/14/2018 [employer] Patient Education 2020 [employer]. 04/21/2022 10:14:51 Lymphadenopathy Lymphadenopathy Lymphadenopathy means that [...] at home: Get plenty of rest. Take qefv-dhy-wjtmpos and prescription medicines only as told by your health care provider. Your health care provider may recommend oltt-awh-zedyqdn medicines for pain. If directed, apply heat [...] 06/09/2009 Document Revised: 08/13/2018 Document Reviewed: 07/16/2018 [employer] Patient Education 2020 [employer]. 04/21/2022 10:14:49 Tobacco Use Disorder Tobacco Use [...] reduces withdrawal symptoms. NRT is available as: ?Iqmr-qvs-yyclfpj gums, lozenges, and skin patches. ?Prescription mouth [...] recovery for many people. General instructions Take lnmn-eje-wsuswdu and prescription medicines only as told by your health care provider. Check with your health care provider before taking any new prescription or xlkm-rcc-dxtgbgn medicines. Decide on a friend, family member, or smoking quit-line (such as 0-308-SEQG-NOW in the [place] that you can call [...] 05/06/2005 Document Revised: 08/18/2018 Document Reviewed: 08/18/2018 [employer] Patient Education 2020 [employer]. Follow Up Care 04/17/2022 09:51:05 With:Aimee Walker CNP Address: When: only if needed [facility] 08-07-2022 Hospital Discharge instructions Patient [...] at home: Get plenty of rest. Take glgr-cxc-xqlggmh and prescription medicines only as told by your health care provider. Your health care provider may recommend gucb-ffn-cxypxri medicines for pain. If directed, apply heat [...] 06/09/2009 Document Revised: 08/13/2018 Document Reviewed: 07/16/2018 [employer] Patient Education 2020 [employer]. Follow Up Care 04/20/2022 14:55:22 With:Aimee Walker Address: [address] [place] [phone] Business (1) When:04/23/2022 16:08:48 Comments:Follow-up with your primary care provider in 3 to 5 days. If symptoms worsen, do not improve, or new symptoms arise please report back to emergency department for further evaluation. [facility]08-07-2022 Evaluation + Plan noteExtracted from: Title:ED Note Author:Dony Alegre PA-C te:04/20/22 Axillary lymphadenopathy (R5 9.0: Localized enlarged lymph nodes) Orders: naproxen, 500 mg = 1 tab(s), Oral, BID, PRN for pain, # 20 tab(s), Refills(s) 0, Pharmacy: [facility]/pharmacy #[id number], 170, cm, 04/20/22 15:01:00 EDT, Height/Length Dosing, 81.5, kg, 04/20/22 15:01:00 EDT, Weight Dosing Automated Diff Basic Metabolic Panel CBC w/ Auto Diff eGFR XR Chest 2 Views Future Appointments Appointment Date:04/21/2022 09:40:00 AM Scheduled Provider:Aimee Walker CNP Location:[facility] Appointment Type:[facility]07-21-2022 Hospital Discharge instructions Patient Education 04/03/2022 [...] 03/15/2012 Document Revised: 08/24/2019 Document Reviewed: 08/24/2019 [employer] Patient Education 2020 [employer]. Follow Up Care 04/03/2022 16:59:04 With:Aimee Walker CNP Address: [phone] When:04/06/2022 [facility]06-17-2022 Miscellaneous Notes* Telephone Encounter - Lina Chavez RN - 02/28/2022 3:[address] Mckee, patient must be 4 weeks nicotine free prior to scheduling and collection of cosmetic payment. documented in this encounterK[facility]06-[facility]22 History of Present illness Narrative* Amee Gonzalez PA-C - 02/12/2022 10:38 AM EDT Images from the original note were not included. Otolaryngology Consultation/Evaluation Note Head and Neck [place] ASSESSMENT: Burning tongue (primary encounter diagnosis) Irritation [...] Take 40 mg by mouth once daily. pwgxbeuunshe-yno-atws-FA-vit K (BARIATRIC MULTIVITAMINS) 45 mg iron- 800 [...] Level: 3 - Low documented in this encounterK[facility]05-26-2022 Hospital Discharge instructions Patient Education 02/06/2022 09:33:48 [...] reduces withdrawal symptoms. NRT is available as: ?Oeon-mmn-oknmncl gums, lozenges, and skin patches. ?Prescription mouth [...] recovery for many people. General instructions Take qxjs-ggo-irgkbgb and prescription medicines only as told by your health care provider. Check with your health care provider before taking any new prescription or vgvz-fpl-dnozjlu medicines. Decide on a friend, family member, or smoking quit-line (such as 4-828-RNHK-NOW in the [place] that you can call [...] 05/06/2005 Document Revised: 08/18/2018 Document Reviewed: 08/18/2018 [employer] Patient Education 2020 [employer]. 02/06/2022 09:33:46 BMI for Adults BMI for [...] height. This can be done either in Romanian ([place] or metric measurements. Note that charts are available to help you find your BMI quickly and easily without having to do these calculations yourself. To calculate your BMI in Romanian ([place] measurements, your health care provider will: [...] medical problems. BMI can be measured using Romanian measurements or metric measurements. To interpret your [...] 05/12/2005 Document Revised: 08/13/2018 Document Reviewed: 07/14/2018 [employer] Patient Education 2020 [employer] Follow Up Care 02/05/2022 13:43:34 With:Aimee Walker CNP Address: When: only if needed [facility] 05-18-2022 Hospital Discharge instructions Patient [...] height. This can be done either in Romanian ([place] or metric measurements. Note that charts are available to help you find your BMI quickly and easily without having to do these calculations yourself. To calculate your BMI in Romanian ([place] measurements, your health care provider will: [...] medical problems. BMI can be measured using Romanian measurements or metric measurements. To interpret your [...] 05/12/2005 Document Revised: 08/13/2018 Document Reviewed: 07/14/2018 [employer] Patient Education 2020 [employer]. 01/29/2022 11:02:54 Complicated Grief Complicated Grief Grief [...] friends and loved ones. General instructions Take sflk-wtk-coslztf and prescription medicines only as told by [...] 08/31/2006 Document Revised: 08/13/2018 Document Reviewed: 06/16/2018 [employer] Patient Education 2020 [employer]. 01/29/2022 11:02:50 Alcohol Abuse and Dependence Information, [...] for Disease Control and Prevention: www.cdc.gov National [place] on Alcohol Abuse and Alcoholism: www.niaaa.nih.gov Alcoholics [...] 08/25/2017 Document Revised: 12/20/2019 Document Reviewed: 11/08/2019 [employer] Patient Education 2020 [employer]. 01/29/2022 11:02:46 Managing Bipolar Disorder Managing Bipolar [...] Follow these instructions at home: Medicines Take xbpk-fdl-oyrhkaf and prescription medicines only as told by your health care provider or pharmacist. Ask your pharmacist what rbjk-kpq-jpsmggp cold medicines you should avoid. Some medicines [...] 12/31/2017 Document Revised: 12/23/2019 Document Reviewed: 12/31/2017 [employer] Patient Education 2019 [employer]. [facility] 05-02-2022 Miscellaneous Notes* Telephone Encounter [...] would pay for the panniculectomy verses atumlouis lewisck. Patient was wondering if she had the panniculectomy with lipo and the bellybutton. How much would that be for her out of pocket? Patient states that if she needed to come in for another consult she would. Please advise at [phone] documented in this encounterK[facility]04-15-2022 Miscellaneous Notes* Telephone Encounter - Rocio Hester [...] understood. Rocio Hester Ma documented in this encounterK[facility]05-21-2021 History of Present illness Narrative* Radha Jara - 02/01/2021 9:47 AM EDT CLINICAL PHARMACY NOTE: MEDS TO BEDS Total # of Prescriptions Filled: 2 The following medications were delivered to the patient: Percocet 5-325mg Augmentin 875-125mg Additional Documentation: delivered to patient in room 236 02/01 at 9:44am. Co- pay paid with credit on [employer] ($4.31). * Gamaliel Vickers, DO - 01/31/2021 6:29 AM EDT Bariatric [...] Intra-abdominal abscess (HCC) 31 yo F s/p 4/26/21 nasim AquilinoY presented 01/30/21 with abdominal pain and several [...] Advance diet Overall improvement * Melissa Singh RPH - 01/30/2021 9:03 PM EDT [...] of 12.5ml/hr. Thank You, Melissa Singh RPH :00 PM documented in this encounterVineloop Phone: 1(502) 613-500205-15-2021 History of Present illness Narrative* Jasmine Burch RN - 01/26/2021 1:51 PM EDT Infusion complete, no complications, IV out and dressing applied. Encouraged patient to call with any questions. Patient left unit with steady gait to private residence. documented in this [facility] Phone: 1(306) 264-419004-27-2021 History of Present illness Narrative* Radha Jara - 01/08/2021 5:59 PM EDT CLINICAL PHARMACY NOTE: MEDS TO [facility] Patient?: No Total # of Prescriptions Filled: 3 The following medications were delivered to the patient: Percocet 5-325mg Promethazine 25mg Pantoprazole 40mg Total # of Interventions Completed: 0 Time Spent (min): 0 Additional Documentation: delivered to patient in room 247 01/08 at 5:43pm. Co- pay paid with [employer] ($7.02). * Gal Atwood DO - 01/08/2021 [...] obesity with BMI of 40.0-44.9, adult (HCC) [E66.01, Z68.41] 05/16/2020 30 y.o. female postop [...] obtained for OR 01-07-21 documented in this [facility] [employer] Work Phone: [phone]) 632-652504-27-2021 Hospital Discharge instructions* Instructions* Gamaliel Vickers DO - 01/08/2021 Discharge Instructions for Surgery You had a Tian-en- Y Gastric Bypass (13002) surgery to treat obesity. Recovery from this [...] scheduled appointment, please call the office at [phone]. Call Your Doctor If Any of the [...] emergency, call 911 immediately. documented in this [facility] Phone: 1(991) 631-582404-12-2021 Hospital Discharge instructions* Instructions* Mahesh PriceCEDRIC - ENERGY OPERATIONS VICE PRESIDENT - 12/24/2020 Images from the original note [...] drive you home after your procedure. Your lease purchase driver must be 18 years of age [...] questions, call the Pre-Admission Testing Unit at [phone]. Day of Surgery/Procedure As a patient at [facility] you can expect quality medical and nursing care that is centered on your individual needs. Our goal is to make your surgical experience as comfortableas possible . Directions to the Surgery Center [facility] is located at [address] [place] [address]. Please pull into the Emergency parking lot and stop at the compliance tester arcos. We offer free compliance tester service for all our surgery patients, if you choose not to have compliance tester parking we have additional parking across the street.You will enter the facility following the [facility] sign. Please stop at the reception centre manager desk where you will be checked in by the staff. If you have any questions please call [phone]. Transportation after your procedure. You will need a friend or family member to drive you home after your procedure. Your lease purchase driver must be18 years of age or [...] You may shave your face or neck. [place] your teeth but do not swallow water. [...] or the day of surgery, please call [phone], or [phone] documented in this [facility] Work Phone: 1(795) 462-850004-12-2021 History of Present illness Narrative* Mahesh Price [...] Nicole for therapy Borderline personality disorder (HCC) [facility], therapist Jacki Nicole Depression Flat feet, bilateral Foot pain, bilateral Dr. Octavio Sims, radiation protection engineer GERD (gastroesophageal reflux disease) managed by Dr. [...] BLEVINS 12/24/20 11:38 AM documented in this [facility] [employer] Work Phone: evaluation + Plan note No data available for this section [facility] Evaluation + Plan note Referrals to Other Providers Referred by: Aimee Walker CNP [facility] Evaluation + Plan note Future Appointments Appointment Date:04/04/2022 02:40:00 PM Scheduled Provider:Rahul Salinas DO Location:[facility] Future [facility]ments Appointment [...] w/CAD if perf and 3D Tanmay 04/21/22 [facility] Evaluation + Plan note Future Appointments Appointment Date:08/22/2022 10:20:00 AM Scheduled Provider:Rahul Salinas DO Location:[facility] Appointment Type: Hospital Follow Up w/TCM Future Scheduled Tests Laboratory* CBC w/ Auto Diff 07/21/22 Radiology* MA Mamm Screen w/CAD if perf and 3D Tanmay 04/21/22 [facility] Future Appointments Appointment Date:11/03/2022 01:00:00 PM Scheduled Provider:Nakia Shah Location:[facility] Appointment Type: Open Future Scheduled Tests Laboratory* CBC w/ Auto Diff 07/21/22 Radiology* MA Mamm Screen w/CAD if perf and 3D Tanmay 04/21/22 [facility] Future Appointments Appointment Date:01/02/2023 10:00:00 AM Scheduled Provider:Nakia Shah Location:[facility] Appointment Type: Open Future Scheduled Tests Laboratory* CBC w/ Auto Diff 07/21/22 Radiology* MA Mamm Screen w/CAD if perf and 3D Tanmay 04/21/22 [facility] Evaluation + Plan note Future Appointments Appointment Date:12/05/2022 09:00:00 AM Scheduled Provider: Location:[facility] Appointment Type:Surgery FT Appointment Date:01/02/2023 10:00:00 AM Scheduled Provider:Nakia Shah Location:[facility] Appointment Type:FM Open Future Scheduled Tests Laboratory* CBC w/ Auto Diff 07/21/22 Radiology* MA Mamm Screen w/CAD if perf and 3D Tanmay 04/21/22 [facility] Future Appointments Appointment Date:12/25/2023 10:15:00 AM Scheduled Provider:Chava BHAKTA, Otto Chester Location:.Cardiology Clinic Appointment Type:Cardiology [facility] (FT) [facility] Future Appointments Appointment Date:11/10/2024 08:00:00 AM Scheduled Provider: Location:.[facility] Appointment Type:US Abdominal/Pelvis (FT) Future Scheduled Tests Radiology* US Abdomen, Limited 11/10/24 [facility] Evaluation + Plan note Future Appointments Appointment Date:11/15/2024 01:45:00 PM Scheduled Provider:Orlando Kate PA-C Location:FT.[facility] Appointment Type:Pain Management - New (FT) [facility] Evaluation + Plan note Future Appointments Appointment Date:12/19/2024 10:15:00 AM Scheduled Provider:Orlando Kate PA-C Location:FT.[facility] Appointment Type:Pain Management - Follow Up (FT) [facility] Evaluation + Plan note Future Appointments Appointment Date:01/24/2025 09:30:00 AM Scheduled Provider: Location:[facility] Appointment Type:Surgery FT Appointment Date:01/27/2025 10:15:00 AM Scheduled Provider:Orlando Kate PA-C Location:FT.[facility] Appointment Type:Pain Management - Follow Up (FT) [facility] Evaluation + Plan note Future Appointments Appointment Date:02/13/2025 08:30:00 AM Scheduled Provider: Location:[facility] Appointment Type:Surgery FT Appointment Date:02/15/2025 01:30:00 PM Scheduled Provider:Orlando Kate PA-C Location:FT.[facility] Appointment Type:Pain Management - Follow Up (FT) Appointment Date:02/16/2025 01:00:00 PM Scheduled Provider:Jak Peace MD Location:FT.Cardiology Clinic Appointment Type:Cardiology New Patient (FT) [facility] [facility] Plan note Future Appointments Appointment Date:02/17/2025 09:15:00 AM Scheduled Provider: Location:[facility] Appointment Type:Surgery FT Appointment Date:02/20/2025 02:30:00 PM Scheduled Provider:Orlando Kate PA-C Location:FT.Pain [facility] [place] Appointment Type:Pain Management - Follow Up (FT) Appointment Date:03/16/2025 02:30:00 PM Scheduled Provider:Jak Peace MD Location:FT.Cardiology Clinic Appointment Type:Cardiology Follow Up (FT) Future Scheduled Tests Radiology* NM Myocardial Spect Rest/Stress 1 Day 02/16/25 [facility] evaluqohmi + Plan note Future Appointments Appointment Date:03/13/2025 11:30:00 AM Scheduled Provider: Location[facility] Appointment Type:NM Myocard Spect Multi Rest/Stress-Res Appointment Date:03/13/2025 12:30:00 PM Scheduled Provider: [facility] Appointment Type:NM Myocard Spect Multi Rest/Stress - R Appointment Date:03/13/2025 01:00:00 PM Scheduled Provider: [facility] Appointment Type:NM Myocard Spect Multi Rest/Stress-Str Appointment Date:03/13/2025 02:00:00 PM Scheduled Provider: Location[facility] Appointment Type:NM Myocar Spect Multi Rest/Stress - St Appointment Date:03/16/2025 02:30:00 PM Scheduled Provider:Jak Peace MD Location:FT.Cardiology Clinic Appointment Type:Cardiology Follow Up (FT) Future Scheduled Tests Radiology* NM Myocardial Spect Rest/Stress 1 Day 03/13/25 [facility] evaluation + Plan note Future Appointments Appointment Date:03/03/2025 08:30:00 AM Scheduled Provider: Location:[facility] Appointment Type:Surgery FT Appointment Date:03/09/2025 12:30:00 PM Scheduled Provider:Babar Mayers DO [facility] [place] Appointment Type:Pain Management - Follow Up (FT) Appointment Date:03/13/2025 11:30:00 AM Scheduled Provider: [facility] Appointment Type:NM Myocard Spect Multi Rest/Stress-Res Appointment Date:03/13/2025 12:30:00 PM Scheduled Provider: Location[facility] Appointment Type:NM Myocard Spect Multi Rest/Stress - R Appointment Date:03/13/2025 01:00:00 PM Scheduled Provider: [facility] Appointment Type:NM Myocard Spect Multi Rest/Stress-Str Appointment Date:03/13/2025 02:00:00 PM Scheduled Provider: [facility] Appointment Type:NM Myocar Spect Multi Rest/Stress - St Appointment Date:03/16/2025 02:30:00 PM Scheduled Provider:Jak Peace MD [facility] Type:Cardiology Follow Up (FT) Future Scheduled Tests Radiology* NM Myocardial Spect Rest/Stress 1 Day 03/13/25 [facility] evalugbrck + Plan note Future Appointments Appointment Date:03/27/2025 08:45:00 AM Scheduled Provider: Location:[facility] Appointment Type:Surgery FT Appointment Date:04/17/2025 08:00:00 AM Scheduled Provider: [facility] Appointment Type:NM Myocard Spect Multi Rest/Stress-Res Appointment Date:04/17/2025 09:00:00 AM Scheduled Provider: Location[facility] Appointment Type:NM Myocard Spect Multi Rest/Stress - R Appointment Date:04/17/2025 09:30:00 AM Scheduled Provider: Location[facility] Appointment Type:NM Myocard Spect Multi Rest/Stress-Str Appointment Date:04/17/2025 10:30:00 AM Scheduled Provider: Location[facility] Appointment Type:NM Myocar Spect Multi Rest/Stress - St Appointment Date:05/02/2025 08:15:00 AM Scheduled Provider:Orlando Kate PA-C Location[facility] Appointment Type:Pain Management - Follow Up (FT) Future Scheduled Tests Radiology* NM Myocardial Spect Rest/Stress 1 Day 04/17/25 [facility] Evaluation note* Diagnosis Preop testing- Primary Preoperative examination, unspecified documented in this encounter [facility] Phone: evaluation note* Diagnosis Post-op pain- Primary Other acute postoperative pain Status post gastric bypass for obesity Bariatric surgery status Morbid obesity with BMI of 40.0-44.9, adult (HCC) Hiatal hernia Diaphragmatic hernia without mention of obstruction or gangrene documented in this encounter [facility] Phone: evalfxfgse note* Diagnosis Dehydration documented in this encounter [facility] Phone: evalfnjbgo note* Diagnosis Generalized abdominal pain- Primary Abdominal pain, generalized documented in this encounter [facility] Phone: evalfbxoqe note* Diagnosis Surgery, elective- Primary Unspecified elective surgery for purposes other than remedying health states Omental infarction (HCC) Acute vascular insufficiency of intestine Intra-abdominal abscess (HCC) Peritoneal abscess documented in this encounter [facility] Phone: evalvvxhce note* Diagnosis Omental infarction (HCC) Acute vascular insufficiency of intestine documented in this encounter [facility] Phone: evalnppsez note* Diagnosis Hypertrophy of breast- Primary Upper back pain Excess skin [facility] Diagnosis Burning tongue- Primary Glossodynia Irritation of oral cavity Other and unspecified diseases of the oral soft tissues [facility]* Diagnosis Onset Date Resolution Status Bipolar 1 disorder acute Blurry vision acute Borderline personality disorder acute Headache acute MDD (major depressive disorder) acute Palpitation acute [facility] Work Phone: Evaluation note* Diagnosis Idiopathic intracranial hypertension- Primary Benign intracranial hypertension Depression, unspecified depression type Primary hypertension Unspecified essential hypertension Hx of gastric bypass Bariatric surgery status H/O foot surgery Personal history of surgery to other organs [facility] [place] noteNo assessment information [facility] Work Phone: Evaluation noteNo [employer] Other Evaluation note* Diagnosis Panic disorder- Primary Panic disorder without agoraphobia Borderline personality disorder (HCC) Borderline personality disorder Bipolar affective disorder in remission (HCC) Chronic alcoholism in remission (HCC) Other and unspecified alcohol dependence, in remission Routine health maintenance Routine general medical examination at a health care facility [facility] [place] [facility]* Diagnosis Panic disorder- Primary Panic disorder without agoraphobia documented in this encounter [facility] note* Diagnosis Routine health maintenance- Primary [...] disorder, unspecified type [facility] [place]* Diagnosis 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 documented in this encounter [facility] note* Diagnosis Idiopathic intracranial hypertension Benign intracranial hypertension documented in this encounter [facility] note* Diagnosis Chest pain, unspecified type- Primary Palpitations Bipolar affective disorder in remission (HCC) History of substance abuse (HCC) Other, mixed, or unspecified nondependent drug abuse, unspecified Borderline personality disorder (HCC) Borderline personality disorder Serum calcium elevated Hypercalcemia documented [facility] encounter [facility] [place] [facility]* Diagnosis Mass of upper outer quadrant of left breast documented in this encounter [facility] note* Diagnosis Abnormal mammogram- Primary Abnormal mammogram, unspecified Mass of upper outer quadrant of left breast Fibrocystic breast changes of both breasts Mastodynia Inversion of left nipple Bloody discharge from left nipple Other sign and symptom in breast Nipple discharge Other sign and symptom in breast Mass of upper outer quadrant of left breast [facility]* Diagnosis Abnormal mammogram of left breast [facility]* Diagnosis Bipolar affective disorder in remission (HCC)- Primary Borderline personality disorder (HCC) Borderline personality disorder Anxiety disorder, unspecified type Chest pain, unspecified type Iron deficiency anemia, unspecified iron deficiency anemia type [facility] [place] [facility]* Diagnosis Angina pectoris Other and unspecified angina pectoris Shortness of breath Palpitations Family history of ischemic heart disease Primary hypertension Unspecified essential hypertension Current smoker BMI 29.0-29.9,adult documented in this encounter [facility] Work Phone: Evaluation note* Diagnosis Bipolar affective disorder in remission (HCC) Borderline personality disorder (HCC) Borderline personality disorder Anxiety disorder, unspecified type [facility] [place] [facility]* Diagnosis Angina pectoris Other and unspecified angina pectoris Shortness of breath Palpitations Family history of ischemic heart disease Primary hypertension Unspecified essential hypertension documented in this encounter [facility] Work Phone: Evaluation note* Diagnosis Ataxia- Primary Lack of coordination Myalgia Unspecified myalgia and myositis documented in this encounter [facility] note* Diagnosis Myalgia Unspecified myalgia and myositis documented in this encounter [facility] HealthcareEvaluation note* Diagnosis Bipolar affective disorder in remission (HCC) Borderline personality disorder (HCC) Borderline personality disorder Anxiety disorder, unspecified type [facility] [place] [facility]* Diagnosis Acute pharyngitis, unspecified etiology- Primary Pharyngitis, unspecified etiology documented in this encounter [facility] HealthcareEvaluation note* Diagnosis Pseudoangiomatous stromal hyperplasia of breast- Primary Hypertrophy of breast documented in this encounter [facility] HealthcareEvaluation note* Diagnosis Pseudoangiomatous stromal hyperplasia of breast- Primary documented in this encounter [facility] general Narrative - Reported* Type Description Date Medical History plantar fasciitis Medical History migraine headache Medical History borderline personality disorder Medical History chronic depression Medical History bipolar Surgical History C section Surgical History c section Surgical History tubal ligation Surgical History HYSTERECTOMY Surgical History oral surgery Surgical History gastric bypass Hospitalization History mental health issues [employer] Other History general Narrative - Reported* Type Description Date Medical History plantar fasciitis Medical History migraine headache Medical History borderline personality disorder Medical History chronic depression Medical History bipolar Surgical History C section Surgical History c section Surgical History tubal ligation Surgical History HYSTERECTOMY Surgical History oral surgery Surgical History gastric bypass Hospitalization History mental health issues Hospitalization History [facility] [place] 11[place]13 023 [employer] Other Hospital Discharge instructions No data available for this section [facility] Discharge instructions Additional Instructions Follow-up with your PCP and neurology Rest Push fluids Tylenol or Motrin if needed for pain Return here if any problems persist [facility] Work Phone: Progress note No data available for this section [facility] Outpatient Procedure (Routine) - New Request Specialty Diagnoses / Procedures Referred By Simona bailey Ref[facility] To [facility] Diagnoses Chest pain, unspecified type Palpitations Procedures ECG COMPLETE ECG ROUTINE ECG W/LEAST 12 LDS W/I&[place] [address] [place] [address] [facility] [place] [address] [place] [address] Referral ID Status Reason Start Date Expiration Date Visits Requested Visits Authorized [id number] New Request Auto-Generat ed Referral 07/01/2025 1 1 [facility] for referral (narrative)* Diagnostic Procedure Only (Routine) - Closed Specialty Diagnoses / Procedures Referred By Simona bailey Referred To Contact [facility] IMAGING Diagnoses Abnormal mammogram of left breast Procedures US BIOPSY BREAST LEFT BX BREAST W/DEVICE 1ST LESION ULTRASOUND Abi Allen MD [address] [facility] [address] [place] [address] [facility] [address] [place] [address] Referral ID Status Reason Start Date Expiration Date V isits Requested Visits Authorized [id number] Closed Auto-Generate d Referral 07/05/2024 08/04/2025 1 1 [facility] for referral (narrative)No reason for referral information [facility] Work Phone: Reason for visit Narrative* Diagnostic Procedure Only (Routine) - Closed Specialty Diagnoses / Procedures Referred By Contac t Referred To Contact [facility] IMAG[facility] Diagnoses Abnormal mammogram of left breast Procedures US BIOPSY BREAST LEFT BX BREAST W/DEVICE 1ST LESION ULTRASOUND GUID Abi Asif MD [address] [address] [facility] [address] [place] [address] Referral ID Status Reason Start Date Expiration Date V isits Requested Visits Authorized [id number] Closed Auto-Generate d Referral 07/05/2024 08/04/2025 1 1 [facility] for visit Narrative* Cardiovascular (Routine) - Authorized Specialty Diagnoses / Procedures Referred By Contac t Referred To Contact Cardiology Diagnoses Angina pectoris Shortness of breath Procedures ECG 12 Lead Aleah Hoawrd MD [address] [address] Phone: tel: fax: Referral ID Status Reason Start Date Expiration Date V isits Requested Visits Authorized [id number] Authorized 08/08/2024 08/08/2025 1 1 [facility] Work Phone: Reason for visit Narrative* CV Imaging (Routine) - Authorized Specialty Diagnoses / Procedures Referred By Contac t Referred To Contact Cardiology Diagnoses Angina pectoris Shortness of breath Palpitations Family history of ischemic heart disease Primary hypertension Procedures Transthoracic Echo Complete DE ECHO TTHRC R-T 2D W/WOM-MODE COMPL SPEC&COLR D Aleah Howard MD [address] [address] Phone: tel: fax: Referral ID Status Reason Start Date Expiration Date Visits Requested Visits Authorized [id number] Authorized Perform Procedure 08/08/2025 1 1 [facility] Work Phone: Assessments Diagnosis Preoperative testing Preoperative examination, unspecified Diagnosis Gastroesophageal reflux disease with esophagitis without hemorrhage Advance Directives No Advanced Directives Records FoundDocuments on File Type Date Recorded Patient Auto Washer Expl anation ACP-Advance Directive ACP-Power of Mill Set Up Documents on File Type Date Recorded Patient Auto Washer Expl anation ACP-Advance Directive ACP-Power of Mill Set Up Latest Code Status on File Code Status [...] questions, PLEASE call your doctor or the [facility] Weight Management center at documented in this encounter Reason for Referral Status Reason Specialty Diagnoses / Procedures Referre d By Contact Referred To Contact Closed Radiology Diagnoses Omental infarction (HCC) Procedures CT ABDOMEN PELVIS W IV CONTRAST Additional Contrast? Oral Gamaliel Vickers DO [address] [facility] [address] [place] [address] Specialty Diagnoses / Procedures Referred By Simona bailey Referred To Contact Ophthalmology Diagnoses Idiopathic intracranial hypertension Procedures CONSULT TO OPHTHALMOLOGY OFFICE/OUTPATIENT [facility] 60-74 MINUTES Eileen Alvarez MD [address] [place] [address] Referral ID Status Reason Start Date Expiration Date Visits Requested Visits Authorized [id number] Authorized PCP Requested Referral 11/20/2022 11/20/2023 1 1 Specialty Diagnoses / Procedures Referred By Contac t Referred To Contact MR IMAGING Diagnoses Idiopathic intracranial hypertension Procedures MRV BRAIN WO/W IVCON MRA; HEAD W & WO CONTRAST Eileen Alvarez MD [address] [place] [address] Mr Imaging Referral ID Status Reason Start Date Expiration Date Visits Requested Visits Authorized [id number] Pending Review Auto-Generat ed Referral 11/20/2022 12/20/2023 1 1 Specialty Diagnoses / Procedures Referred By Contac t Referred To Contact MR IMAGING Diagnoses Mass of upper outer quadrant of left breast Procedures MRI BREAST BX WO/W IVCON LEFT BX BREAST W/DEVICE 1ST [place] [address] [place] [address] [place] [address] Referral ID Status Reason Start Date Expiration Date Visits Requested Visits Authorized [id number] Pending Review Auto-Generat ed Referral 03/08/2024 04/07/2025 1 1 Specialty Diagnoses / Procedures Referred By Contac t Referred To Contact Diagnoses Class 1 obesity due to excess calories without serious comorbidity with body mass index (BMI) of 30.0 to 30.9 in adult Procedures ENDOCRINE MEDICAL WEIGHT MANAGEMENT OFFICE/OUTPATIENT [facility] 60 [place] [address] [place] [address] Referral ID Status Reason Start Date Expiration Date Visits Requested Visits Authorized [id number] Authorized PCP Requested Referral 03/08/2024 03/08/2025 1 1 Specialty Diagnoses / Procedures Referred By Contac t Referred To Contact MR IMAGING Diagnoses Pancreas cyst Procedures MRI 3D POST PROCESSING 3D RENDERING W/INTERP&POSTPROC DIFF WORK STATION Leonela Aguirre MD [address] [place] [address] [place] [address] Referral ID Status Reason Start Date Expiration Date V isits Requested Visits Authorized [id number] Closed Auto-Generate d Referral 08/31/2023 09/29/2024 1 1 Specialty Diagnoses / Procedures Referred By Contac t Referred To Contact MR IMAGING Diagnoses Pancreas cyst Procedures MRI PANC/TANMAY WO/W IVCON MRI ABDOMEN W/O & W/CONTRAST MATERIAL Leonela Aguirre MD [address] [place] [address] Mr Imaging [place] [address] Referral ID Status Reason Start Date Expiration Date V isits Requested Visits Authorized [id number] Closed Auto-Generate d Referral 03/01/2024 03/31/2024 1 1 Specialty Diagnoses / Procedures [facility] Referred To Contact [facility] Diagnoses Idiopathic intracranial hypertension Procedures MRV BRAIN WO/W IVCON MRA; HEAD W & WO CONTRAST Eileen Alvarez MD [address] [place] [address] Mr Imaging [place] [address] Referral ID Status Reason Start Date Expiration Date V isits Requested Visits Authorized [id number] Closed Auto-Generate d Referral 01/29/2023 02/28/2023 1 1 Specialty Diagnoses / Procedures [facility] Referred To Contact [facility] Diagnoses Mass of upper outer quadrant of left breast Fibrocystic breast changes of both breasts Mastodynia Inversion of left nipple Bloody discharge from left nipple Nipple discharge Procedures MRI BREAST WO/W IVCON BILATERAL MRI BREAST WITHOUT&WITH CONTRAST W/CAD BILATERAL Fatuma Tyler APRN.ENERGY OPERATIONS VICE PRESIDENT [address] [place] [address] Mr Imaging [place] [address] Referral ID Status Reason Start Date Expiration Date Visits Requested Visits Authorized [id number] Pending Review Auto-Generat ed Referral 08/03/2025 1 1 Specialty Diagnoses / Procedures [facility] Referred To Contact [facility] Diagnoses Mass of upper outer quadrant of left breast Procedures US BREAST LTD LEFT US BREAST UNI REAL TIME WITH IMAGE LIMITED Fatuma Tyler APRN.ENERGY OPERATIONS VICE PRESIDENT [address] [place] [address] Br Imaging [address] [place] [address] Referral ID Status Reason Start Date Expiration Date V isits Requested Visits Authorized [id number] Closed Auto-Generate d Referral 07/04/2024 09/13/2024 1 1 Specialty Diagnoses / Procedures Referred By Simona bailey Referred To Contact [facility] Diagnoses Mass of upper outer quadrant of left breast Procedures LINDA DIAG W AV BILATERAL DIGITAL BREAST TOMOSYNTHESIS BILATERAL Bruce Tylerjonatanfallon, AUTOMOTIVE INTERNET SALES CONSULTANT.ENERGY OPERATIONS VICE PRESIDENT [address] [place] [address] Br Imaging [address] [place] [address] Referral ID Status Reason Start Date Expiration Date V isits Requested Visits Authorized [id number] Closed Auto-Generate d Referral 07/04/2024 09/13/2024 1 [...] and content) DATE CREATED AUTHOR 10/06/2020 [facility] DATE CREATED AUTHOR AUTHOR'S ORGANIZ ATION [facility]/2021 [facility] DATE CREATED AUTHOR AUTHOR'S ORGANIZ ATION 08/16/2022 [facility] DATE CREATED AUTHOR AUTHOR'S ORGANIZ ATION 11/15/2022 [facility] DATE CREATED AUTHOR AUTHOR'S ORGANIZ ATION 08/17/2023 [facility] DATE CREATED AUTHOR AUTHOR'S ORGANIZ ATION 09/04/2023 [facility] DATE CREATED AUTHOR AUTHOR'S ORGANIZ ATION 10/26/2023 [facility] DATE CREATED AUTHOR AUTHOR'S ORGANIZ ATION 03/12/2024 [facility] DATE CREATED AUTHOR AUTHOR'S ORGANIZ ATION 09/16/2024 [facility] DATE CREATED AUTHOR AUTHOR'S ORGANIZ ATION 09/25/2024 [facility] DATE CREATED AUTHOR AUTHOR'S ORGANIZ ATION 09/26/2024 [facility] DATE CREATED AUTHOR AUTHOR'S ORGANIZ ATION 09/30/2024 [facility] DATE CREATED AUTHOR AUTHOR'S ORGANIZ ATION 10/19/2024 [facility] DATE CREATED AUTHOR AUTHOR'S ORGANIZ ATION 12/13/2024 [facility] DATE CREATED AUTHOR AUTHOR'S ORGANIZ ATION 01/29/2025 [facility] DATE CREATED AUTHOR AUTHOR'S ORGANIZ ATION 02/19/2025 [facility] DATE CREATED AUTHOR AUTHOR'S ORGANIZ ATION 03/05/2025 [facility] DATE CREATED AUTHOR AUTHOR'S ORGANIZ ATION 03/17/2025 [facility] DATE CREATED AUTHOR AUTHOR'S ORGANIZ ATION 04/28/2025 [facility] DATE CREATED AUTHOR AUTHOR'S ORGANIZ ATION 05/05/2025 [facility] DATE CREATED AUTHOR AUTHOR'S ORGANIZ ATION 05/06/2025 [facility] EPIC Reason for Visit (unrecogniz ed section and content) Status Reason Specialty Diagnoses / Procedures Re ferred By Contact Referred To Contact Diagnoses GERD (gastroesophageal reflux disease) GERD/OBESITY Procedures DE ESOPHAGOGASTRODUODENOSCOPY TRANSORAL DIAGNOSTIC EGD ESOPHAGOGASTRODUODENOSCOPY Gamaliel Vickers DO [address] [address] [facility] Status Reason Specialty Diagnoses / Procedures Referre d By Contact Referred To Contact Closed Radiology Diagnoses Gastro-esophageal reflux disease with esophagitis, without bleeding Procedures CHG RADIOLOGIC EXAM UPR GI TRC SINGLE CONTRAST STUDY Gamaliel Vickers DO [address] [facility] [address] [place] [phone] [facility] Radiology [address] [place] [address] Status Reason Specialty Diagnoses / Procedures Referre d By Contact Referred To Contact Diagnoses Morbid obesity (HCC) GERD (gastroesophageal reflux disease) MORBID OBESITY, GERD Procedures DE LAP GASTRIC BYPASS/TIAN-EN-Y XI LAPAROSCOPIC ROBOTIC GASTRIC BYPASS TIAN-EN-Y, LIVER BIOPSY, EGD- GI UNIT SCHEDULED. Gamaliel Vickers DO [address] [facility] [address] [place] [phone] [facility] Reason Comments Abdominal Pain Diffuse cramping and bloating. Onset 2 days ago. Pt reports she is 3.5weeks post Gastric bypass. Last BM this AM Reason Comments Abdominal Pain possible abscess Status Reason Specialty Diagnoses / Procedures Referre d By Contact Referred To Contact Diagnoses Intra-abdominal abscess (HCC) Omental infarction (HCC) Gamaliel Vickers DO [address] [facility] Michael [address] [place] [phone] [facility] Status Reason Specialty Diagnoses / Procedures Referre d By Contact Referred To Contact Closed Radiology Diagnoses Omental infarction (HCC) Procedures CT ABDOMEN PELVIS W IV CONTRAST Additional Contrast? Oral Gamaliel Vickers DO [address] [facility] Michael [address] [place] [phone] Reason Comments Orders Reason Comments Patient Question [...] present [K21.9] Obesity (BMI 30-39.9) [E66.9] Procedures DE EGD TRANSORAL BIOPSY SINGLE/MULTIPLE DE ESOPHAGOGASTRODUODENOSCOPY TRANSORAL DIAGNOSTIC DE EGD BALLOON DILATION ESOPHAGUS <30 MM DIAM EGD BIOPSY Gamaliel Vickers DO [address] [facility] [address] [place] [address] [facility] [address] [place] [address] Referral ID Status Reason Start Date Expiration Date Visits Re quested Visits Authorized [id number] 1 1 Reason Comments Establish Care Panic [...] W/O & W/CONTRAST MATERIAL Leonela Aguirre MD [address] [place] [id number] Mr [facility] [place] [address] Referral ID Status Reason Start Date Expiration Date V isits Requested Visits Authorized [id number] Closed Auto-Generate d Referral 03/01/2024 03/31/2024 1 1 Reason Onset Date Comments ACM EDYTA RN 05/30/2024 ED Utilizatio n review per request of payer Specialty Diagnoses / Procedures Referred By Simona t Referred To Contact MR IMAGING Diagnoses Idiopathic intracranial hypertension Procedures MRV BRAIN WO/W IVCON MRA; HEAD W & WO CONTRAST Eileen Alvarez MD [address] [place] [address] Mr Imaging [facility] Referral ID Status Reason Start Date Expiration Date V isits Requested Visits Authorized [id number] Closed Auto-Generate d Referral 01/29/2023 02/28/2023 1 [...] BILATERAL DIGITAL BREAST TOMOSYNTHESIS BILATERAL Fatuma Tyler APRN.ENERGY OPERATIONS VICE PRESIDENT [address] [place] [address] [facility] Imaging [address] [place] [address] Referral ID Status Reason Start Date Expiration Date V isits Requested Visits Authorized [id number] Closed Auto-Generate d Referral 07/04/2024 09/13/2024 1 [...] Population Health Navigation Outreach 10/17/2024 Mauricio Phan Reason Comments Left breast hypertrophy Specialty Diagnoses / Procedures Referred By Simona bailey Referred To Contact General Surgery Diagnoses Hypertrophy of breast Procedures DE OFFICE/OUTPATIENT NEW HIGH MDM 60 MINUTES Molly Gregorio, AUTOMOTIVE INTERNET SALES CONSULTANT-ENERGY OPERATIONS VICE PRESIDENT [address] [place] [address] Phone: tel: fax: [facility] [address] [address] Phone: tel: fax: Referral ID Status Reason Start Date Expiration Date V isits Requested Visits Authorized [id number] Closed Specialty Services Required 04/10/2025 10/07/2025 1 1 Reason Comments Left mamm/US results C/o nipple pain Ordered Prescriptions (unrec ognized section and content) [...] to Other Facility - Provider: Judy Reeder, AQUILINO) PRN Medication Order 01/28/2021 01/29/2021 01/30/2021 iopamidol (ISOVUE-370) 76 % injection 18 mL (COMPLETED) 18 mL, Other, IMG ONCE PRN, Other, Starting on Thu01/30/21 at 1137, For 1 dose 1142 (Given - Provid er: [facility]) iopamidol (ISOVUE-370) 76 % injection 75 mL (COMPLETED) 75 mL, Intravenous, IMG ONCE PRN, Other, Starting on Thu01/30/21 at 1137, For 1 dose 1142 (Given - Provid er: [facility]) Scheduled Medication Order 01/30/2021 01/31/2021 02/01/2021 0.9 % sodium chloride bolus (COMPLETED) 1,000 mL (8.96 mL/kg), Intravenous, at 1,000 mL/hr, Administer over 1 Hours, ONCE, On Thu01/30/21 at 1715, For 1 dose 1708 (New Bag - Provider: Orlando Guevara RN)1901 (Stopped - Provider: Orlando Guevara, AQUILINO) enoxaparin (LOVENOX) injection 40 mg 40 mg, Subcutaneous, EVERY 12 HOURS SCHEDULED (2 times per day), First dose on Thu01/30/21 at 2200 2315 (Held - Provider: Heather Palacios RN - Reason: Patient/family refused) 0938 (Given - Provider: Wei Carter, AQUILINO)2100 (Due) 0831 (Given - Provider: Bonnie Ruiz [...] RN)1257 (New Bag - Provider: Wei Carter, AQUILINO)1632 (Stopped - Provider: Wei Carter RN)2032 (New [...] Fluid Infusing)2100 (Due) PRN Medication Order 01/30/2021 01/31/202102/01/2021 0.9 % sodium chloride infusion 25 mL, [...] Carter RN)1921 (Given - Provider: Rita Klein, AQUILINO) 0404 (Given - Provider: Rita Klein RN) [...] Carter RN)1921 (Given - Provider: Rita Klein, AQUILINO) 0404 (Given - Provider: Rita Klein RN)0832 [...] 0900 (Due)2100 (Due) Continuous Medication Order 09/16/2023 09/17/202309/18/2023 lactated ringers IV soln infusion IntraVENous, at [...] any alcohol or drug abuse patient.[facility] the event this information is protected by the Federal Confidentiality of Alcohol and Drug Abuse Patient Records regulations: The Federal rules restrict any use of the information to criminally investigate or prosecute any alcohol or drug abuse patient.[facility] TroyIn the event this information is protected by the Federal Confidentiality of Alcohol and Drug Abuse Patient Records regulations: The Federal rules restrict any use of the information to criminally investigate or prosecute any alcohol or drug abuse patient.[facility] TroyIn the event this information is protected by the Federal Confidentiality of Alcohol and Drug Abuse Patient Records regulations: The Federal rules restrict any use of the information to criminally investigate or prosecute any alcohol or drug abuse patient.[facility] TroyIn the event this information is protected by the Federal Confidentiality of Alcohol and Drug Abuse Patient Records regulations: The Federal rules restrict any use of the information to criminally investigate or prosecute any alcohol or drug abuse patient.[facility] TroyIn the event this information is protected by the Federal Confidentiality of Alcohol and Drug Abuse Patient Records regulations: The Federal rules restrict any use of the information to criminally investigate or prosecute any alcohol or drug abuse patient.[facility] TroyIn the event this information is protected by the Federal Confidentiality of Alcohol and Drug Abuse Patient Records regulations: The Federal rules restrict any use of the information to criminally investigate or prosecute any alcohol or drug abuse patient.[facility] TroyIn the event this information is protected by the Federal Confidentiality of Alcohol and Drug Abuse Patient Records regulations: The Federal rules restrict any use of the information to criminally investigate or prosecute any alcohol or drug abuse patient.[facility] TroyIn the event this information is protected by the Federal Confidentiality of Alcohol and Drug Abuse Patient Records regulations: The Federal rules restrict any use of the information to criminally investigate or prosecute any alcohol or drug abuse patient.[facility] TroyIn the event this information is protected by the Federal Confidentiality of Alcohol and Drug Abuse Patient Records regulations: The Federal rules restrict any use of the information to criminally investigate or prosecute any alcohol or drug abuse patient.[facility] TroyIn the event this information is protected by the Federal Confidentiality of Alcohol and Drug Abuse Patient Records regulations: The Federal rules restrict any use of the information to criminally investigate or prosecute any alcohol or drug abuse patient.[facility] TroyIn the event this information is protected by the Federal Confidentiality of Alcohol and Drug Abuse Patient Records regulations: The Federal rules restrict any use of the information to criminally investigate or prosecute any alcohol or drug abuse patient.[facility] TroyIn the event this information is protected by the Federal Confidentiality of Alcohol and Drug Abuse Patient Records regulations: The Federal rules restrict any use of the information to criminally investigate or prosecute any alcohol or drug abuse patient.[facility] TroyIn the event this information is protected by the Federal Confidentiality of Alcohol and Drug Abuse Patient Records regulations: The Federal rules restrict any use of the information to criminally investigate or prosecute any alcohol or drug abuse patient.[facility] TroyIn the event this information is protected by the Federal Confidentiality of Alcohol and Drug Abuse Patient Records regulations: The Federal rules restrict any use of the information to criminally investigate or prosecute any alcohol or drug abuse patient.[facility] TroyIn the event this information is protected by the Federal Confidentiality of Alcohol and Drug Abuse Patient Records regulations: The Federal rules restrict any use of the information to criminally investigate or prosecute any alcohol or drug abuse patient.[facility] TroyIn the event this information is protected by the Federal Confidentiality of Alcohol and Drug Abuse Patient Records regulations: The Federal rules restrict any use of the information to criminally investigate or prosecute any alcohol or drug abuse patient.[facility] TroyIn the event this information is protected by the Federal Confidentiality of Alcohol and Drug Abuse Patient Records regulations: The Federal rules restrict any use of the information to criminally investigate or prosecute any alcohol or drug abuse patient.[facility] TroyIn the event this information is protected by the Federal Confidentiality of Alcohol and Drug Abuse Patient Records regulations: The Federal rules restrict any use of the information to criminally investigate or prosecute any alcohol or drug abuse patient.[facility] TroyIn the event this information is protected by the Federal Confidentiality of Alcohol and Drug Abuse Patient Records regulations: The Federal rules restrict any use of the information to criminally investigate or prosecute any alcohol or drug abuse patient.[facility] TroyIn the event this information is protected by the Federal Confidentiality of Alcohol and Drug Abuse Patient Records regulations: The Federal rules restrict any use of the information to criminally investigate or prosecute any alcohol or drug abuse patient.[facility] TroyIn the event this information is protected by the Federal Confidentiality of Alcohol and Drug Abuse Patient Records regulations: The Federal rules restrict any use of the information to criminally investigate or prosecute any alcohol or drug abuse patient.[facility] TroyIn the event this information is protected by the Federal Confidentiality of Alcohol and Drug Abuse Patient Records regulations: The Federal rules restrict any use of the information to criminally investigate or prosecute any alcohol or drug abuse patient.[facility] TroyIn the event this information is protected by the Federal Confidentiality of Alcohol and Drug Abuse Patient Records regulations: The Federal rules restrict any use of the information to criminally investigate or prosecute any alcohol or drug abuse patient.[facility] TroyIn the event this information is protected by the Federal Confidentiality of Alcohol and Drug Abuse Patient Records regulations: The Federal rules restrict any use of the information to criminally investigate or prosecute any alcohol or drug abuse patient.[facility] TroyIn the event this information is protected by the Federal Confidentiality of Alcohol and Drug Abuse Patient Records regulations: The Federal rules restrict any use of the information to criminally investigate or prosecute any alcohol or drug abuse patient.[facility] TroyIn the event this information is protected by the Federal Confidentiality of Alcohol and Drug Abuse Patient Records regulations: The Federal rules restrict any use of the information to criminally investigate or prosecute any alcohol or drug abuse patient.[facility] TroyIn the event this information is protected by the Federal Confidentiality of Alcohol and Drug Abuse Patient Records regulations: The Federal rules restrict any use of the information to criminally investigate or prosecute any alcohol or drug abuse patient.[facility] TroyIn the event this information is protected by the Federal Confidentiality of Alcohol and Drug Abuse Patient Records regulations: The Federal rules restrict any use of the information to criminally investigate or prosecute any alcohol or drug abuse patient.[facility] TroyIn the event this information is protected by the Federal Confidentiality of Alcohol and Drug Abuse Patient Records regulations: The Federal rules restrict any use of the information to criminally investigate or prosecute any alcohol or drug abuse patient.[facility] Care Team (unrecognized sect ion and content) Team Status: Active Member Role Status Dates Jennie Durand DO Primary Care Provider Active Team Status: Active Member Role Status Dates Lindy Keen APRN OVER SHORT AND DAMAGE CLERK-C Primary Care Provider Activ e Start: April [...] Status: Inactive Member Role Status Dates Jennie D Durand , DO Primary Care Provider Active Sangeetha Peña MD Admit Provider Active Lindy Hdz Other Provider Active Krystal Romo , DO Other Provider Active Carolyne Schilling MD Other Provider Active Jamie Larsen , DO Other Provider Active Dorita Niño , ANP-BC Other Provider Active Kenrick Lee , DO Other Provider Active Shasta Zaragoza , AUTOMOTIVE INTERNET SALES CONSULTANT Other Provider Active Danielle Smith , OVER SHORT AND DAMAGE CLERK-C Other Provider Active Lizzeth Malave MD Attending [...] DO Other Provider Active Shasta Zaragoza , AUTOMOTIVE INTERNET SALES CONSULTANT Other Provider Active Danielle Smith , OVER SHORT AND DAMAGE CLERK-C Other Provider Active Lizzeth Malave MD Attending Provider Active Team Status: Inactive Member Role Status Dates Jennie Durand , DO Primary Care Provider Active Dorita Niño , ANP-BC Attending Provider Active Team Status: Inactive Member Role Status Dates Jennie Duarnd , DO Primary Care Provider Active Jose Maria Nair , DO Emergency Provider Active Team Status: Inactive Member Role Status Dates Jennie Durand , DO Primary Care Provider Active Yoli Norris MD Emergency Provider Active Group Work Program Aide Relationship Specialty Start Date End Date Jennie Durand, [address] [place] [id number] PCP - General Family Medicine 11/19/22 Team [...] December 24, 2023 Jose Maria Nair , DO Emergency Provider Active St art: December 24, 2023 End: December 24, 2023 Team Status: Inactive Member Role Status Dates Jennie Durand DO Primary Care Provider Active S tart: December 31, 2023 End: December 31, 2023 Kenny Javed APRN Emergency Provider Active Start: December 31, 2023 End: December 31, 2023 Group Work Program Aide Relationship Specialty [place] [address] [place] [address] PCP - General Family Medicine 01/04/24 Nilo Prado MD [address] [place] [address] Referring Gastroenterology 08/17/23 Group Work Program Aide Relationship Specialty [place] [address] [place] [address] PCP - General Family Medicine 01/04/24 Nilo Prado MD [address] [place] [address] Referring Gastroenterology 08/17/23 Group Work Program Aide Relationship Specialty [place] [address] [place] [address] PCP - General Family Medicine 01/04/24 Nilo Prado MD [address] [place] [address] Referring Gastroenterology 08/17/23 Group Work Program Aide Relationship Specialty [place] [address] [place] [address] PCP - General Family Medicine 01/04/24 Nilo Prado MD [address] [place] [address] Referring Gastroenterology 08/17/23 Group Work Program Aide Relationship Specialty Start Date End [place] [address] [place] [address] PCP - General Family Medicine 01/04/24 Nilo Prado MD [address] [place] [address] Referring Gastroenterology 08/17/23 Group Work Program Aide Relationship Specialty [place] [address] [place] [address] PCP - General Family Medicine 05/30/24 Nilo Prado MD [address] [place] [address] Referring Gastroenterology 08/17/23 Group Work Program Aide Relationship Specialty [place] [address] [place] [address] PCP - General Family Medicine 05/30/24 Nilo Prado MD [address] [place] [address] Referring Gastroenterology 08/17/23 Group Work Program Aide Relationship Specialty [place] [address] [place] [address] PCP - General Family Medicine 05/30/24 Nilo Prado MD [address] [place] [address] Referring Gastroenterology 08/17/23 Group Work Program Aide Relationship Specialty [place] [address] [place] [address] PCP - General Family Medicine 05/30/24 Nilo Prado MD [address] [place] [address] Referring Gastroenterology 08/17/23 Group Work Program Aide Relationship Specialty Start Date End Date Tevin Carson [address] [place] [address] PCP - General Family Medicine 05/30/24 Nilo Prado MD [address] [place] [address] Referring Gastroenterology 08/17/23 Group Work Program Aide Relationship Specialty Start Date End Date Tevin Carson [address] [place] [address] PCP - General Family Medicine 05/30/24 Nilo Prado MD [address] [place] [address] Referring Gastroenterology 08/17/23 Group Work Program Aide Relationship Specialty Start Date End Date CarsonTevin badillo [address] [place] [address] PCP - General Family Medicine 05/30/24 Nilo Prado MD [address] [place] [address] Referring Gastroenterology 08/17/23 Group Work Program Aide Relationship Specialty Start Date End Date Tevin Carson [address] [place] [address] PCP - General Family Medicine 05/30/24 Nilo Prado MD [address] [place] [address] Referring Gastroenterology 08/17/23 Group Work Program Aide Relationship Specialty [place] [address] [place] [address] PCP - General Family Medicine 05/30/24 Nilo Prado MD [address] [place] [address] Referring Gastroenterology 08/17/23 Group Work Program Aide Relationship Specialty [place] [address] [place] [address] PCP - General Family Medicine 05/30/24 Nilo Prado MD [address] [place] [address] Referring Gastroenterology 08/17/23 Group Work Program Aide Relationship Specialty [place] [address] [place] [address] PCP - General Family Medicine 05/30/24 Nilo Prado MD [address] [place] [address] Referring Gastroenterology 08/17/23 Group Work Program Aide Relationship Specialty Start Date End Date CarsonTevin badillo [address] [place] [address] PCP - General Family Medicine 05/30/24 Nilo Prado MD [address] [place] [address] [address] [place] [address] Referring Gastroenterology 08/17/23 [place] [address] [place] [address] Bakery Deliverer Family Medicine 08/22/24 Group Work Program Aide Relationship Specialty Start Date End Date Carson Tevin [address] [place] [address] PCP - General Family Medicine 05/30/24 Nilo Prado MD [address] [place] [address] [address] [place] [address] Referring Gastroenterology 08/17/23 [place] [address] [place] [address] Bakery Deliverer Family Medicine 08/22/24 Group Work Program Aide Relationship Specialty Start Date End Date Kurt Balbuena [facility] Family Medicine [address] [place] [address] 09/21/24 Group Work Program Aide Relationship Specialty Start Date End Date Kurt Balbuena [facility] Family Medicine [address] [place] [address] 09/21/24 Team Status: Active Member Role Status Dates Jennie Durand , Primary Care Provider Active S tart: July 03, 2024 Julio Peña DO Attending Provider Active Sta rt: July 03, 2024 Group Work Program Aide Relationship Specialty Start Date End Date Kurt Balbuena [address] [address] 09/21/24 Group Work Program Aide Relationship Specialty Start Date End Date Kurt Balbuena [address] [address] 09/21/24 Corby Larsen DO [address] [place] [phone] Referring Physician Neurology 09/27/24 Team Status: Inactive Member Role Status Dates NON STAFF Primary Care Provider Active Start: December 16, 2024 End: December 16, 2024 Corby Larsen DO Attending Provider Active Start: December 16, 2024 End: December 16, 2024 Group Work Program Aide Relationship Specialty [place] [address] [place] [address] PCP - General Family Medicine 05/30/24 Nilo Prado MD [address] [place] [address] Referring Gastroenterology 08/17/23 Lisha Bianchi, CEDRIC.ENERGY OPERATIONS VICE PRESIDENT [address] [place] [address] Bakery Deliverer Family Medicine 12/16/24 Group Work Program Aide Relationship Specialty Start Date End Date Kurt Balbuena NP [address] [address] 09/21/24 Corby Larsen DO [address] [address] Referring Physician Neurology 09/27/24 Group Work Program Aide Relationship Specialty Start Date End Date Unallocated, Noms MD [address] [place] [address] PCP - General Family Medicine 04/13/25 Kurt Balbuena NP [address] [address] 09/21/24 Corby Larsen DO [address] [address] Referring Physician Neurology 09/27/24 Group Work Program Aide Relationship Specialty Start Date End Date Unallocated, Shane Conte MD [address] [place] [address] PCP - General Family Medicine 04/13/25 Kurt Balbuena NP [address] [address] 09/21/24 Corby Larsen DO [address] [address] Referring Physician Neurology 09/27/24 Goals (unrecognized section [...] BE BASED ON THE PRIMARY CLINICAL RECORDS. [employer] [facility]. provides no warranty or guarantee of the accuracy or completeness of information in this document.
--- OUTSIDE RECORDS SUMMARY | 2025-05-07 08:26 | XMS_ITS | Encounter Summary ---
Author Organization [facility] Address [address] [place] [address] Phone Care Team Providers Care Early Childhood Education Coordinator Name Role Phone Generic Provider, No Assigned Pcp MD Primary Car e Provider Unavailable Encounter Details Date Type Department Care Team (Late st Contact Info) Description 09/15/2024 Scanned Document [facility] [address] [place] [phone] Scanning, Generic Provider Social History Tobacco Use [...] on filedocumented in this encounter Care Teams Early Childhood Education Coordinator Relationship Specialty Start Date End Date Generic Provider, [place] [address] PCP - General Snagger 11/03/24 documented as of this encounter
--- OUTSIDE RECORDS SUMMARY | 2025-05-07 08:26 | XMS_ITS | Encounter Summary ---
Author Organization [facility] Address [address] [place] [address] Phone Care Team Providers Care Information Technology Intern Name Role Phone Generic Provider, No Assigned Pcp Primary Car e Provider Unavailable Encounter Details Date Type Department Care Team (Late st Contact Info) Description 12/12/2024 Scanned Document [facility] [address] [place] [phone] Scanning, Generic Provider Social History Tobacco Use [...] on filedocumented in this encounter Care Teams Information Technology Intern Relationship Specialty Start Date End Date Generic Provider, No Assigned Pcp, [place] [address] PCP - General [employer] 11/03/24 documented as of this encounter
--- OUTSIDE RECORDS SUMMARY | 2025-05-07 08:26 | XMS_ITS | Clinical Summary ---
Author Organization [facility] Address [address] [place] [address] Phone Care Team Providers Care Aerial Applicator Pilot Name Role Phone Generic Provider, No Assigned Pcp MD Primary Car e Provider Unavailable Allergies Active Allergy Reactions Criticality Noted Date Comments Aripiprazole Other 02/24/2023 Bupropion Other 07/16/2021 Coconut Swelling Low 07/24/2020 Coconut Flavor Anaphylaxis High 05/09/2020 coconut Coconut Oil, Hydrogenated Itching Medium 07/18/2020 Medications DULoxetine (Cymbalta) [address] capsule Take 90 mg by mouth. 02/29/2020 Active multivitamin-mi v-pbao-OG-vit K (Bariatric Multivitamins) 45 mg iron- 800 [...] management of mother, antepartum condition or complication ([facility]) 07/03/2008 Acute pharyngitis 12/01/2002 Streptococcal sore throat 12/01/2002 Abdominal pain 06/13/2002 Acute suppurative otitis med ia without spontaneous rupture of ear drum 06/13/2002 Lumbago 06/13/2002 Sprain of ankle 12/06/2001 Encounters Date Type Department Care Team Description 02/09/[address] [facility] [address] [place] [address] Scanning, Generic Provider from Last [...] Date/Time Associated Diagnosis Comments ECHOCARDIOGRAM 02/09/2025 CONVERTED TORCH SHEARER CYTOLOGY Routine 3 12:00 AM EDT from Last 3 Months or Most Recently Relevant to Health Maintenance Results * Echocardiogram (02/09/2025) Narrative 02/09/2025 Ordered by an unspecified provider. us Generic Provider Scanning CV ECHO PROCEDURES Fin al Result * CONVERTED TORCH SHEARER CYTOLOGY (06/10/2013 12:00 AM EDT) Pathology Report [...] MAEGAN ARIAS 06/15/13 Electronically Signed Out By [facility], Cytology/ By the signature on this [...] - PREVIOUS CASES [id number] S-1414-10 G-6141-09 G-4825-08 S-6140-08 S-9599-08 G-1776 -08 - HISTORY & COMMENTS Previous Abnormal PAP and/or Biopsy LSIL Source of Specimen A: Unknown Part Type [facility] Department of Pathology [address] [place] [address] [facility] COPATH CONVERTED FINAL DIAGNOSIS Satisfactory for evaluation. [...] findings. - Signed by: MAEGAN ARIAS 06/15/13 [facility] COPATH CONVERTED CLINICAL DIAGNOSIS-HIST ORY - PREVIOUS CASES [id number] S-1414-10 G-6141-09 G-6425-08 S-7040-08 S-5799-08 G-2246 -08 - HISTORY & COMMENTS Previous Abnormal PAP and/or Biopsy LSIL [facility] CONVERTED SLIDE-BLOCK DESCRIPTION - TISSUES - 1. CERVICAL/VAGINAL THIN PREP - [facility] CONVERTED REPORT COMMENTS [facility] Case # [id number] DOS: 06/10/13 - ORD PHYSICIAN: Clinton Hernandez MD - ORD PROCEDURES - CYTO PAP TLP MAN SCR /1 CYTO PAP INTERP / - COPIES TO: Clinton Hernandez MD - Status History - ENT 06/13/13 0948 PRICE FELIX 06/15/13 1321 MAEGAN ARIAS [place] 06/15/13 1325 MAEGAN ARIAS - [place] Conversion Report - [facility] CONVERTED FINAL REPORT PDF LINK TO COPY AND PASTE \copathshare\copa th\PDF [id number].[email or web address] [facility] Unrecognized Part Type 06/10/2013 06/13/2013 9:48 AM EDT us Copath Conversion LAB CYTOLOGY ORDERABLES Final Result [facility] [address] [place] [id number] from Last 3 Months or Most Recently Relevant to Health Maintenance Insurance MEDICAID Member Subscriber Plan / Payer (Ef fective 2023-Present) Name:Shazia Chou Relation to Subscriber:Self Name:Shazia Chou Payer ID:Not on file Group ID:Not on file Type:Not on file Address: [address] DUAL ADVANTAGE MEDICAID ANTHEM DUAL ADVANTAGE Care Teams Aerial Applicator Pilot Relationship Specialty Start Date End Date Generic Provider, [place] [address] PCP - General Hose Tubing Backer 11/03/24
--- OUTSIDE RECORDS SUMMARY | 2025-05-07 08:26 | XMS_ITS | Encounter Summary ---
Author Organization [facility] Address [address] [place] [address] Care Team Providers Care Undercutter Name Role Phone Nilo Prado MD Unavailable Elia Min DO Primary Care Provider [phone] Tevin Villafana DO Primary Care Provider Natacha Schroeder DO Unavailable Lisha Worthington SENIOR UI DEVELOPER.LACTATION COORDINATOR Unavailable Source Comments In the event this information is protected by the Federal Confidentiality of Alcohol and Drug AbusePatient Records regulations: The Federal rules restrict any use of the information to criminally investigate or prosecute any alcohol or drug abuse patient.[facility] Encounter Details Date Type Department Care Team (Late st Contact Info) Description 06/10/2023 Patient Msg Neurology [address] [place] [address] Margo Manzano MD [address] [place] [address] Request an Appointment Social History [...] Answer Date Recorded PHQ-2 score 1 02/20/2023 [employer] of Occupat ional Health - Occupational Stress [...] place to sleep or slept in a penitentiary (including now)? No 07/03/2022 Area Deprivation Index Answer Date David rded National Score (1-100), lower number is lower ri sk 78 02/27/2023 State Score (1-10), lower number is lower risk 6 02/27/2023 Data from: https://www.neighborhoodatlas.medicine.[facility].edu/. Last address used for calculation [address] [place] [address] 02/27/2023 Comments Unknown Sex and Gender Information [...] AM EDT Office Visit Breast Center [address] [place] [phone] Molly Kramer APRN.LACTATION COORDINATOR [address] [place] [address] LT BREAST PAIN WITH DISCOLORATION 05/16/2025 9:30 AM EDT Appointment Mammography [address] [place] [phone] BREAST PAIN WITH DISCOLORATION documented as of this encounter Visit Diagnoses Not on filedocumented in this encounter Care Teams Undercutter Relationship Specialty Start Date End Date Elia Min DO [address] [place] [address] PCP - General Family Medicine 01/04/24 05/29/24 [place] [address] [place] [address] PCP - General Family Medicine 05/30/24 02/13/25 Nilo Prado MD [address] [place] [address] Referring Gastroenterology 08/17/23 [place] [address] [place] [address] Rubber Splicer Family Medicine 08/22/24 12/15/24 Lisha Worthington APRN.IRENE [address] [place] [address] Rubber Splicer Family Medicine 12/16/24 documented as of this encounter
--- OUTSIDE RECORDS SUMMARY | 2025-05-07 08:27 | XMS_ITS | Encounter Summary ---
Author Organization [facility] Address [address] [place] [address] Care Team Providers Care Emergency Medicine Specialist Name Role Phone Nilo Prado MD Unavailable Elia Min DO Primary Care Provider [phone] Tevin Villafana DO Primary Care Provider [phone] Natacha Schroeder DO Unavailable Lisha Worthington ASSEMBLER [employer]ES [employer] SPRINGS.FLIGHT TOWER DISPATCHER Unavailable Source Comments In the event this information is protected by the Federal Confidentiality of Alcohol and Drug AbusePatient Records regulations: The Federal rules restrict any use of the information to criminally investigate or prosecute any alcohol or drug abuse patient.[facility] Encounter Details Date Type Department Care Team (Late st Contact Info) Description 06/30/2022 Get Medical Advice Plastic Surgery [address] [place], [place] [phone] [place] [address] [place] [address] breast reduction Social History Tobacco Use Types [...] often do you attend chur ch or sikhism services? Never 07/03/2022 Do you belong to any clubs o r organizations such as orthodox groups, unions, fraternal or athletic groups, [...] very hard 07/03/2022 [facility] of Occupat ional Health - Occupational [...] in a senior care (including now)? No 07/03/2022 Area Deprivation Index Answer Date David rded National Score (1-100), lower number is lower ri sk 73 02/12/2022 State Score (1-10), lower number is lower risk N ot on file 02/12/2022 Data from: https://www.neighborhoodatlas.medicine.[facility].edu/. Last address used for calculation [address] [facility] 02/12/2022 Comments Unknown Sex and Gender Information [...] AM EDT Office Visit Breast Center [address] [address] Molly Kramer APRN.FLIGHT TOWER DISPATCHER [address] [place] [address] LT BREAST PAIN WITH DISCOLORATION 05/16/2025 9:30 AM EDT Appointment Mammography [address] [address] LT BREAST PAIN WITH DISCOLORATION documented as of this encounter Visit Diagnoses Not on filedocumented in this encounter Care Teams Emergency Medicine Specialist Relationship Specialty Start Date End Date Elia Min DO [address] [place] [address] PCP - General Family Medicine 01/04/24 05/29/24 [place] [address] [place] [address] PCP - General Family Medicine 05/30/24 02/13/25 Nilo Prado MD [address] [address] Referring Gastroenterology 08/17/23 [place] [address] [place] [address] Machine Load Clerk Family Medicine 08/22/24 12/15/24 Lisha Worthington APRN.FLIGHT TOWER DISPATCHER [address] [place] [address] Machine Load Clerk Family Medicine 12/16/24 documented as of this encounter
--- OUTSIDE RECORDS SUMMARY | 2025-05-07 08:27 | XMS_ITS | Encounter Summary ---
Author Organization [facility] Address [address] [facility] [place] [address] Care Team Providers Care Distance Education Faculty Liaison Name Role Phone Yolande Page MANUAL PLATE FILLER Unavailable Pop Larsen DO Unavailable [phone] Unallocated, Noms Provider Primary Care Provi andres Encounter Details Date Type Department Care Team ([facility] Contact Info) Description 09/22/2024 Orders Only [facility] [address] [place] [phone] Pop Larsen DO [address] [place] [address] Social History Tobacco Use Types Packs/Day [...] Upcoming Encounters Date Type Department Care Team ([facility] Contact Info) Description 06/08/2025 10:15 AM EDT Office Visit [facility] [address] [facility] [address] [place] [address] Shaji Francis DO [address] [facility] [address] [place] [address] documented as of this encounter Procedures Procedure [...] on filedocumented in this encounter Care Teams Distance Education Faculty Liaison Relationship Specialty Start Date End Date Unallocated, Noms Inés, [address] [place] [address] PCP - General Family Medicine 04/13/25 Yolande Page NP [facility][note 2][address] [place] [phone] 09/21/24 Pop Larsen DO [facility] Family Medicine [facility][note 2][address] [place] [address] Referring Physician Neurology 09/27/24 documented as of this encounter
--- OUTSIDE RECORDS SUMMARY | 2025-05-07 08:27 | XMS_ITS | Encounter Summary ---
Author Organization [facility] Address [address] [place] [address] Phone Care Team Providers Care Centrex Radio Operator Name Role Phone Generic Provider, No Assigned Pcp MD Primary Car e Provider Unavailable Encounter Details Date Type Department Care Team (Late st Contact Info) Description 12/31/2023 Scanned Document [facility] [address] [place] [phone] Scanning, Generic Provider Social History Tobacco Use [...] on filedocumented in this encounter Care Teams Centrex Radio Operator Relationship Specialty Start Date End Date Generic Provider, [place] [address] PCP - General Fabric Separator Operator 11/03/24 documented as of this encounter
--- OUTSIDE RECORDS SUMMARY | 2025-05-07 08:27 | XMS_ITS | Encounter Summary ---
Author Organization [facility] Address [address] [place] [address] Phone Care Team Providers Care Chief Service Dispatcher Name Role Phone Generic Provider, No Assigned Pcp Primary Car e Provider Unavailable Encounter Details Date Type Department Care Team (Late st Contact Info) Description 12/10/2023 Scanned Document [facility] [address] [place] [phone] Scanning, Generic Provider Social History Tobacco Use [...] on filedocumented in this encounter Care Teams Chief Service Dispatcher Relationship Specialty Start Date End Date Generic Provider, No Assigned PcpMD [facility]ONE [facility] [place] [address] PCP - General Animal Anatomist 11/03/24 documented as of this encounter
--- OUTSIDE RECORDS SUMMARY | 2025-05-07 08:27 | XMS_ITS | Encounter Summary ---
Author Organization [facility] Address [address] [place] [address] Phone Care Team Providers Care Production Proofreader Name Role Phone Generic Provider, No Assigned Pcp MD Primary Car e Provider Unavailable Encounter Details Date Type Department Care Team (Late st Contact Info) Description 07/03/2023 Scanned Document [facility] [address] [place] [phone] Scanning, Generic Provider Social History Tobacco Use [...] on filedocumented in this encounter Care Teams Production Proofreader Relationship Specialty Start Date End Date Generic Provider, No [place] [address] PCP - General Spiral Winding Machine Helper 11/03/24 documented as of this encounter
--- OUTSIDE RECORDS SUMMARY | 2025-05-07 08:28 | XMS_ITS | Encounter Summary ---
Author Organization [facility] Address [address] [place] [address] Care Team Providers Care Vacuum Cleaner Operator Name Role Phone Camilo Yolande Lehman CASH ACCOUNTANT Unavailable [phone] Pop Larsen DO Unavailable [phone] Unallocated, Noms Provider MD Primary Care Provi andres Encounter Details Date Type Department Care Team (Latest Contact Info) Description 05/04/2025 Travel Social History Tobacco Use Types Packs/Day [...] Upcoming Encounters Date Type Department Care Team ( st Contact Info) Description 06/08/2025 10:15 AM EDT Office Visit [facility] [address] [place] [phone] Shaji Frnacis DO [address] [place] [address] documented as of this encounter Visit Diagnoses Not on filedocumented in this encounter Care Teams Vacuum Cleaner Operator Relationship Specialty Start Date End Date Unallocated, Noms Provider, [address] [place] [address] PCP - General Family Medicine 04/13/25 Yolande Page NP [address] [address] 09/21/24 Pop Larsen DO [address] [address] Referring Physician Neurology 09/27/24 documented as of this encounter
--- OUTSIDE RECORDS SUMMARY | 2025-05-07 08:28 | XMS_ITS | Encounter Summary ---
Author Organization [facility] Address [address] [facility], [address] [place] [address] Care Team Providers Care Ground Products Director Name Role Phone Jennie Durand DO Primary Care Provider [phone] Reason for Visit * Reason Comments Medication Refill Encounter Details Date Type Department Care Team (Late st Contact Info) Description 09/05/2020 Refill [facility] Part of [address] [place] [address] Koki Chan, DEVELOPMENT TECHNICAL LEAD - MONORAIL HOOKER Medication Refill Social History Tobacco Use Types [...] documented as of this encounter Care Teams Ground Products Director Relationship Specialty Start Date End Date Jennie Durand DO [address] [place] [address] PCP - General Family Medicine 11/19/22 documented as of this encounter
--- OUTSIDE RECORDS SUMMARY | 2025-05-07 08:28 | XMS_ITS | Clinical Summary ---
Author Organization [facility] Address [id number] [address] [place] [address] Care Team Providers Care Ophthalmic Lens Inspector Name Role Phone [facility] Primary Care Pr ovider [...] 07/10/2021, 07/09/2020 Medical Devices Implanted Type Area Mumps Developer Device Identifier Shelf Expiration Date Model / Serial / Lot Anch Sut 4.75mm 2 [facility] - [id number] - [id number] Implanted:Qty: 1 on 07/27/2020 by Octavio Sims DPM at [facility] [employer]herd Right Medial: Ankle [employer] 06/06/2023 [id number] / [id number] / [id number] Nl Im 52mm 5.5mm 4 Hl Hi Rt - [id number] - [id number] Implanted:Qty: 1 on 07/27/2020 by Octavio Sims DPM at [facility] Nail Right: Foot [employer] 07/27/2024 J38-Q8-672 2 / [id number] / NA Pg Fx 3.5mm 18mm Thrd Phntm - [id number] - [id number] Implanted:Qty: 1 on 07/27/2020 by Octavio Sims DPM at [facility] Orthopedic Implant Right: Foot [employer] 07/27/2024 K66-Q0-727 8 / [id number] / NA Pg Fx 3.5mm 16mm Thrd Phntm - [id number] - [id number] Implanted:Qty: 1 on 07/27/2020 by Octavio Sims DPM at [facility] Orthopedic Implant Right: Foot [employer] 07/27/2024 M50-Y3-965 6 / [id number] / NA Pg Fx 3.5mm 12mm Antirotation - [id number] - [id number] Implanted:Qty: 1 on 07/27/2020 by Octavio Sims DPM at [facility] Orthopedic Implant Right: Foot [employer] 07/27/2024 P25-Q1-017 2 / [id number] / [id number] Cellular Bone Matrix Implanted:Qty: 1 on 07/27/2020 by Octavio Sims DPM at [facility] Right Lateral: Ankle [employer] 08/07/2022 H79-[id number] 00 / [id number] / [id number] Titan 3-D Wedge Implanted:Qty: 1 on 07/27/2020 by Octavio Sims DPM at [facility] Right Lateral: Ankle [employer] 03/13/2022 [id number] / [id number] / [id number] Insurance MEDICAID [place] [employer] MEDICARE Care Teams Ophthalmic Lens Inspector Relationship Specialty Start Date End Date [facility], [address] [address] PCP - General 07/10/21
--- OUTSIDE RECORDS SUMMARY | 2025-05-07 08:28 | XMS_ITS | Encounter Summary ---
Author Organization [facility] Address [address] [facility], [address] [place] [address] Care Team Providers Care Agronomy Professor Name Role Phone Jennie Durand DO Primary Care Provider Reason for Referral * Imaging (Routine) - Closed Specialty Diagnoses / Procedures Referred By Contac t Referred To Contact Radiology Diagnoses Gastroesophageal reflux disease with esophagitis, unspecified whether hemorrhage Procedures FL UGI W KUB Johnny Vickers DO Phone: tel: fax: Referral ID Status Reason Start Date Expiration Date Visits Re quested Visits Authorized [id number] Closed 10/24/2020 10/24/2021 1 1 Encounter Details Date Type Department Care Team (Latest Contact Info) Description 10/24/2020 Transcribe Orders [facility] [address] [place] [address] Johnny Vickers DO [address] [place] [address] Gastroesophageal reflux disease with esophagitis, unspecified whether [...] documented as of this encounter Care Teams Agronomy Professor Relationship Specialty Start Date End Date Jennie Durand DO [address] [place] [phone] PCP - General Family Medicine 11/19/22 documented as of this encounter
--- OUTSIDE RECORDS SUMMARY | 2025-05-07 08:28 | XMS_ITS | Clinical Summary ---
Author Organization [facility] Address [address] [place] [address] Care Team Providers Care Casket Assembler Metal Name Role Phone Camilo Yolande Lehman LOGISTICS AND PLANNING MANAGER Unavailable [phone] Pop Larsen DO Unavailable [phone] Unallocated, Noms Provider MD Primary Care Provi [...] anemia 12/22/2024 Overview (12/22/2024): noted in 09/16/2024 [facility] Records page 5. added per OP [...] management of mother, antepartum condition or complication ([facility]) 07/03/2008 Acute pharyngitis 12/01/2002 Streptococcal sore throat 12/01/2002 Abdominal pain 06/13/2002 Acute suppurative otitis med ia without spontaneous rupture of ear drum 06/13/2002 Educational circumstance 06/13/2002 Lumbago 06/13/2002 Sprain of ankle 12/06/2001 Encounters Date Type Department Care Team Description 05/04/2025 9:45 AM EDT Office Visit [facility] [address] [place] [phone] Shaji Francis DO Pseudoangiomatous stromal hyperplasia of breast (Primary Dx) 05/04/2025 Travel 04/13/2025 10:00 AM EDT Consult [facility] [address] [facility] [address] [place] [phone] Shaji Francis DO Pseudoangiomatous stromal hyperplasia of breast (Primary Dx); Hypertrophy of breast 04/13/2025 Travel 04/11/2025 Travel 04/09/2025 10:45 AM EDT Office Visit [facility] [address] [place] [phone] Shazia Elise NP Acute pharyngitis, unspecified etiology (Primary Dx); Pharyngitis, [...] EDT Office Visit [facility] [address] [address] Shaji Francis, [address] [address] Health Maintenance Due Date Last Done Comments [...] Escalante M.D. 04/26/2025 10:15 AM Dictation Location: [facility] Tech: Shazia Mullen; Elena Vaughn Transcribed By: MARKY 04/26/25 1015 Dictated By: Denny Escalante MD 04/26/25 1009 Signed By: <Electronically signed by Denny Escalante MD in OV> 04/26/25 1015 Narrative 04/26/2025 10:20 AM EDT [facility] [place] [address] [place] [address] Ultrasound Report Signed Patient: Shazia Chou MR#: [id number] : 1990 Acct:[id number] Age/Sex: 34 / F ADM Date: 04/26/25 Loc: [place] Room: Type: [facility] Attending Dr: Shaji Francis DO Ordering Provider: Shaji Francis DO Date of Service: 04/26/25 MM/MM diagnostic mammo LT w/CAD: follow up for Left breast Upper outer quadrant ([id number]) US/US breast LT limited: follow with mamm [...] limited Procedure Note Radiology, Radiologist, - 04/26/2025 [facility] [place] [address] [place] [address] Ultrasound Report Signed Patient: Shazia Chou LMR#: [id number] : 1990Acct:[id number] Age/Sex: 34 / FADM Date: 04/26/25 Loc: [place] Room:Type: [facility] Attending Dr: Shaji Francis DO Ordering Provider: Shaji Francis DO Date of Service: 04/26/25 MM/MM diagnostic mammo LT w/CAD: follow up forLeft breast Upper outer quadrant ([id number]) US/US breast LT limited: follow with mamm upper outerquadrant Copies to: Shaji Francis DO DIAGNOSTIC LEFT MAMMOGRAM - FULL FIELD DIGITAL WITH TOMOSYNTHESIS/targetedbreast ultrasound CLINICAL DATA: PASH, pain Craniocaudal and mediolateral oblique views of the left breast wereobtained using low-dose digital technique. Comparison is made to prior studies from outside /28/2024. This examination was reviewed with the aid [...] Escalante M.D. 04/26/2025 10:15 AM Dictation Location: [facility] Tech: Shazia Mullen; Elena Vaughn Transcribed By: MARKY 04/26/25 1015 Dictated By: Denny Escalante MD 04/26/25 1009 Signed By: <Electronically signed by Denny Escalante MD in OV> 04/26/25 1015 Shaji Francis DO IMG BI PROCEDURES Final R esult * STREP DNA PROBE (04/09/2025 11:03 AM EDT) RESULT neg Negative Throat 04/09/2025 11:0 3 AM EDT Shazia Elise LOGISTICS AND PLANNING MANAGER POINT OF CARE TEST ENTER/JEREMIAH T ORDERABLES Final Result from Last 3 Months Insurance MEDICAID [place] MEDICARE ADVANTAGE Care Teams Casket Assembler Metal Relationship Specialty Start Date End Date Unallocated, Noms Provider, [address] [place] [address] PCP - General Family Medicine 04/13/25 Yolande Page, LOGISTICS AND PLANNING MANAGER [place] [id number] [place] [phone] 09/21/24 Pop Larsen DO [place] [id number] [place] [phone] Referring Physician Neurology 09/27/24
--- OUTSIDE RECORDS SUMMARY | 2025-05-07 08:28 | XMS_ITS | Encounter Summary ---
Author Organization [facility] tem Address [facility] [id number] [address] [place] [address] Care Team Providers Care Production Inspector Name Role Phone [facility] Primary Care Pr ovider Reason for Visit * Reason Onset Date Comments GENETICS 02/07/2022 CLERICAL Encounter Details Date Type Department Care Team (Late st Contact Info) Description 02/07/2022 Telephone [facility] Division of [facility] - Medical Oncology [address] [place] [phone] Edith Louise, [facility] [address] [place] [address] GENETICS (CLERICAL) Social History Tobacco [...] IT WAS NEG. [facility] AND CALL BACK TO SCHEDULE. S[place] documented in this encounter Plan of Treatment Not on file documented as of this encounter Visit Diagnoses Not on filedocumented in this encounter Additional Health Concerns Assessment Noted Time PHQ-9 Depression Total Score: 0 07/24/20 20 3:08 PM EST documented as of this encounter Care Teams Production Inspector Relationship Specialty Start Date End Date [facility], [place] [address] PCP - General 07/10/21 documented as of this encounter
--- OUTSIDE RECORDS SUMMARY | 2025-05-07 08:28 | XMS_ITS | Encounter Summary ---
Author Organization [facility] [facility] tem Address [id number] [address] [place] [address] Care Team Providers Care Team Psychologist Name Role Phone [facility] Primary Care Pr ovider Encounter Details Date Type Department Care Team (Late st Contact Info) Description 07/18/2021 Orders Only [facility] [place] [address] Transcribe, Orders Support User Pain [...] documented as of this encounter Care Teams Team Psychologist Relationship Specialty Start Date End Date [facility], [place] [address] PCP - General 07/10/21 documented as of this encounter
--- NOTE | 2025-05-07 08:33 | ECG_ITS ---
[facility] Test Date: 2025-05-07 Pat Name: LEILA HASSAN Department: Room: - Gender: Female Chemistry Teacher: : 1990 Requested By: [id number] Order Number: [id number] Reading MD: SHOLA ELKINS Measurements Intervals Elizabeth Rate: 62 P: 21 AK: 158 QRS: 85 QRSD: 84 T: 19 QT: 390 QTc: 396 Interpretive Statements 1100 Sinus rhythm 9110 normal ECG Compared to ECG 04/12/2025 07:09:19 No significant changes Electronically Signed On 05-08-2025 12:23:21 EDT by SHOLA ELKINS
--- NOTE | 2025-05-07 08:33 | XR_ITS ---
[facility] [place] [id number] Patient Name: LEILA HASSAN MRN: [id number] date: 1990 Sex: F Assigned Patient Location: ED.MAIN Current Patient Location: ED.MAIN Accession/Order Number: [id number] Exam Date: 05/07/2025 09:05 Report Date: 05/07/2025 09:33 At the request of: FABIOLA COSTELLO DO Procedure: XR chest 2V XR chest 2V 05/07/2025 9:10 AM SIGNS AND SYMPTOMS: Left-sided chest pain PROTOCOL: Frontal and lateral radiographs of the chest COMPARISON: 04/12/2025 FINDINGS: The trachea is midline. The heart and mediastinal structures are within normal limits. The lung parenchyma is clear. The bony thorax is intact. There is a dextro convex curvature of the thoracic spine. XR/XR chest 2V IMPRESSION: No acute cardiopulmonary pathology. Impression dictated by: Molina Shetty M.D. 05/07/2025 9:33 AM Dictation Location: [facility] Electronically authenticated by: [id number] Y Date: 05/07/2025 09:33
[2025-05-07 09:00] LABS: Hematocrit 36.9 % (36.0-48.0); Hemoglobin 12.5 g/dL (12.0-16.0); Mean Corpuscular HGB Conc 33.9 g/dL (29.9-35.2); Mean Corpuscular Hemoglobin 32.8 pg (26.7-34.0); Mean Corpuscular Volume 96.9 fL (81.0-99.0); Platelet Count 348 10^3/uL (150-450); Red Blood Count 3.81 10^6/uL (4.20-5.40); White Blood Count 7.4 10^3/uL (4.0-11.0)
[2025-05-07 09:18] LABS: Anion Gap 12.9; Blood Urea Nitrogen 9.0 mg/dL (7.0-18.0); Calcium 9.2 mg/dL (8.5-10.1); Carbon Dioxide 26.3 mmol/L (21.0-32.0); Chloride 106 mmol/L (98-107); Estimated GFR (African America >60 (>=60 mL/min/1.73m^2); Estimated GFR (Non-African Ame >60 (>=60 mL/min/1.73m^2); Glucose 87 mg/dL (74-106); Potassium 4.2 mmol/L (3.5-5.1); Sodium 141 mmol/L (136-145)
--- NOTE | 2025-05-07 09:23 | ED.GENADUL1 ---
HPI HPI - General Adult General Chief complaint: Extremity Injury, Upper Stated complaint: L SIDED CHEST, SHOULDER AND NECK PAIN Time Seen by Provider: 05/07/25 08:21 Source: patient Mode of arrival: walk-in History of Present Illness HPI narrative: Patient is a 34-year-old female presenting to the emergency department for concerns of left-sided chest pain. Patient states the pain has been ongoing for the last 4 days, and is consistent in nature. She states it is sharp in nature. She states it radiates to her left arm and left jaw. She cannot identify anything that makes the pain better/worse. She states she has had pain like this in the past, which time she was seen by probate paralegal just a few months ago. She states she was cleared by cardiology . States she had a normal echocardiogram and cardiac workup. She denies history of DVT/PE, hemoptysis, or leg swelling. Denies recent mobilizations. She denies being as she had a hysterectomy. She denies history of CT or coronary artery disease/stents. She denies any other chronic medical conditions such as hypertension, diabetes, or smoking. She recently quit alcohol 2 weeks ago, has history of alcohol use disorder. She denies any fevers, chills, or URI symptoms. Related Data Home Medications ?Medication ?Instructions ?Recorded ?Confirmed duloxetine 60 mg capsule,delayed 60 mg PO BID 06/10/23 05/07/25 release lamotrigine 25 mg tablet 100 mg PO QDAY 04/08/24 05/07/25 gabapentin 100 mg capsule 600 mg PO TID 01/23/25 05/07/25 trazodone 100 mg tablet 200 mg PO .qhs 01/23/25 05/07/25 Previous Rx's ?Medication ?Instructions ?Recorded ondansetron 4 mg disintegrating 4 mg PO Q4H PRN nausea and 04/12/25 tablet vomiting 3 days #6 tabs Allergies Allergy/AdvReac Type Severity Reaction Status Date / Time buspirone (From BuSpar) Allergy Intermediate tachycardia Verified 05/07/25 08:21 aripiprazole (From Abilify) Allergy Unknown Verified 05/07/25 08:21 COCONUT Allergy Mild Hives Uncoded 05/07/25 08:21 Opioid HPI Opioid Management Most Recent Opioid Data: Last Pain Scale 6 04/12/25, 07:15 Ur Phencyclidine Scrn, (NEGATIVE) Negative 07/22/24, 13:51 Review of Systems ROS Status of ROS 10 or more systems reviewed and unremarkable except as noted in history and below PFSH PFSH Social History Smoking status: Current every day smoker Little interest or pleasure in doing things: not at all Feeling down, depressed, or hopeless: nearly every day Exam Narrative Exam Narrative: CONSTITUTIONAL: Well-appearing, answering questions and following commands appropriately SKIN: Was warm and dry. EYES: No conjunctival pallor EARS, NOSE, THROAT: No JVD RESPIRATORY: Clear to auscultation bilaterally, no wheezes, crackles, or stridor, no use of accessory muscles CARDIOVASCULAR: Normal rate and regular rhythm. There is no S3, S4, murmur, rub. Radial pulses are 2+ and symmetrical. GASTROINTESTINAL: Abdomen was nondistended. MUSCULOSKELETAL: Full range of motion of bilateral upper extremities. There is some reproducible tenderness palpation about the left sternocleidomastoid muscle. NEUROLOGIC: Patient is awake and alert. Equal strength in all extremities. Facies were symmetrical. Constitutional Vital Signs, click to edit/add: Last Vital Signs Temp 98.0 F 05/07/25 08:23 Pulse 75 05/07/25 08:23 Resp 16 05/07/25 08:23 BP 120/83 05/07/25 08:23 Pulse Ox 100 05/07/25 08:23 O2 Del Method Room Air 05/07/25 08:23 Course Vital Signs Vital signs: Vital Signs Temperature 98.0 F 05/07/25 08:23 Pulse Rate 75 05/07/25 08:23 Respiratory Rate 16 05/07/25 08:23 Blood Pressure 120/83 05/07/25 08:23 Pulse Oximetry 100 05/07/25 08:23 Oxygen Delivery Method Room Air 05/07/25 08:23 Temperature 98.0 F 05/07/25 08:23 Pulse Rate 75 05/07/25 08:23 Respiratory Rate 16 05/07/25 08:23 Blood Pressure 120/83 05/07/25 08:23 Pulse Oximetry 100 05/07/25 08:23 Oxygen Delivery Method Room Air 05/07/25 08:23 Medical Decision Making MDM Narrative Medical decision making narrative: Patient is a 34-year-old female presenting to the emergency department with a 4-day history of atypical left-sided chest pain. Of note, patient was evaluated by cardiology a few months ago, at which time they identified no significant abnormalities. She is otherwise healthy with no cardiac risk factors. Vital signs on arrival are within normal limits. She is afebrile and hemodynamically stable. Examination as noted above. My differential diagnosis includes musculoskeletal chest pain, anxiety, and less likely ACS, pneumothorax, or associated electrolyte/metabolic derangement. I did consider PE, however using the PERC criteria, she can be ruled out. IV was established and laboratory studies were obtained. Chest x-ray was ordered. 12 Lead EKG: Normal sinus rhythm at a rate of 62. Normal axis. No ST segment elevations. QRS, [place], and QTc interval within normal limits. Final impression: normal sinus rhythm without evidence of acute myocardial ischemia. Laboratory studies were unremarkable. No significant electrolyte or metabolic derangement. No evidence of acute kidney injury. No anemia, leukocytosis, or thrombocytopenia. Troponin nonelevated. Chest x-ray independently reviewed/interpreted by myself demonstrated no acute cardiopulmonary process. I do believe the patient is stable for discharge at this time. Patient's presentation is most likely consistent with musculoskeletal pain, atypical chest pain. They were instructed to follow up with her PCP as needed. Return precautions were given including any new or worsening symptoms. Patient understands and agrees to the plan. FINAL IMPRESSION: Acute atypical chest pain DISPOSITION: Discharged home CONDITION: Good Medical Records Medical records reviewed: Yes I reviewed the patient's medical records Lab Data Lab results reviewed: Yes I reviewed the patient's lab results Labs: Lab Results 05/07/25 Range/Units 08:52 WBC 7.4 (4.0-11.0) 10^3/uL RBC 3.81 L (4.20-5.40) 10^6/uL Hgb 12.5 (12.0-16.0) g/dL Hct 36.9 (36.0-48.0) % MCV 96.9 (81.0-99.0) fL MCH 32.8 (26.7-34.0) pg MCHC 33.9 (29.9-35.2) g/dL RDW 13.8 (11.0-15.0) % Plt Count 348 (150-450) 10^3/uL MPV 10.7 (9.5-13.5) fL Sodium 141 (136-145) mmol/L Potassium 4.2 (3.5-5.1) mmol/L Chloride 106 (98-107) mmol/L Carbon Dioxide 26.3 (21.0-32.0) mmol/L Anion Gap 12.9 BUN 9.0 (7.0-18.0) mg/dL Creatinine 0.60 (0.55-1.02) mg/dL Est GFR ( Amer) >60 (>=60 mL/min/1.73m^2) Est GFR (Non-Af Amer) >60 (>=60 mL/min/1.73m^2) BUN/Creatinine Ratio 15.0 Glucose 87 (74-106) mg/dL Calcium 9.2 (8.5-10.1) mg/dL Troponin I High Sens <4.0 L (4.0-51.3) pg/mL Imaging Data Chest x-ray: Attestation: I personally reviewed and interpreted this imaging study as follows: ECG Data Attestation: I personally reviewed and interpreted this ECG as follows: Discharge Plan Discharge Chief Complaint: Extremity Injury, Upper Clinical Impression: Atypical chest pain Patient Disposition: Home, Self-Care Time of Disposition Decision: 09:25 Condition: Good Mode of Transportation: Private Vehicle Prescriptions / Home Meds: No Action duloxetine 60 mg capsule,delayed release(DR/EC) 60 mg PO BID lamotrigine 25 mg tablet 100 mg PO QDAY gabapentin 100 mg capsule 600 mg PO TID trazodone 100 mg tablet 200 mg PO .qhs ondansetron 4 mg tablet,disintegrating 4 mg PO Q4H PRN (Reason: nausea and vomiting) 3 Days Qty: 6 0RF Print Language: American Instructions: Chest Wall Pain (ED) Referrals: KAYLEE AMES [Primary Care Provider, Unknown] - 1 week
== END 2025-05-07 09:43 | disposition home or self-care (01) ==
PROVIDERS: Emergency Provider Student in an Organized Health Care Education/Training Program
DX: R07.89 Other chest pain (principal); M79.18 Myalgia, other site
CPT/HCPCS: 36415; 71046; 80048; 84484; 85027; 93005; 99285

== ENCOUNTER 2025-06-02 07:08 | Emergency (ER) | payer MEDICARE, MEDICAID, SELFPAY ==
[2025-06-02 07:15] VITALS: BP 133/90; PULSE 78; TEMP 36.9; O2SAT 98; BMI 31.0
--- OUTSIDE RECORDS SUMMARY | 2025-06-02 07:17 | XMS_ITS | CCD ---
Author Organization [facility] Care Team Providers Care Linux Network Systems Administrator Name Role Phone Jennie Durand Primary Care Provider LINDY COTE Attending Unavailable PROVIDER, UNKNOWN Admitting Unavailable PATIENT, SELF Referring Unavailable Jennie Durand Primary Care Provider Jennie Durand DO Primary Care Provider [phone] JENNIE DURAND Primary Care Unavailable Jennie Durand DO Primary Care Provider Unavailable Primary Care Provider UnavailAimee Renee Primary Care Physician Unavailable Primary Care Provider UnavailDO Jennie Pichardo Primary Care Provider MD Sangeetha Peña Admit Provider Lindy Hdz Other Provider Unavailable DO Krystal Romo Other Provider MD Carolyne Schilling Other Provider DO Jamie Larsen Other Provider DIANNE Niño- Dorita Other Provider DO Kenrick Lee Other Provider CEDRIC Zaragoza Other Provider [phone] ASTON Smith Other Provider MD Lizzeth Malave Attending Provider DO Jamie Larsen Referring Provider [phone] DIANNE Niño- Dorita Attending Provider [phone] Nakia Mcqueen Primary Care Physician [phone] DR CAROLYNE RALPH Consulting Unavailable MISC, DR VELASCO Primary Care Unavailable HAY ., DR WOLFF Attending Unavailable HAY ., DR WOLFF Admitting Unavailable HAY ., DR WOLFF Consulting Unavailable GABRIELA CAMARGO Attending Unavailable KATQUEENIE, GABRIELA D Admitting Unavailable KATKO, GABRIELA D Consulting Unavailable MISC, DR VELASCO Primary Care [...] Unavailable MISC, DR VELASCO Primary Care Unavailable GREKADIE ., RAMSES MARTIN Consulting Unavailabl e PAY [...] Care Physician Jennie Durand Primary Care Physician DO Jennie Durand Primary Care Provider [phone] DO Jose Maria Nair Emergency Provider Ania Javed Unavailable Asaad, Imad Unavailable Durand, DO Jennie D Primary Care Provider TuDO Jose Maria henry Emergency Provider MD Yoli Norris Emergency Provider [phone] GANESH CORDERO Referring Unavailable DURAND, JENNIE D Primary Care Unavailable JOSUEMARII Referring Unavailable DURAND, JENNIE D Primary Care Unavailable MAN BRIANNAUMEI Attending Unavailable BRIANNA ALVAREZUMEArielle Attending Unavailable NAFSATHISH SAMER A Referring Unavailable Durand DO, Jennie D Primary Care Provider GAMALIEL VICKERS Referring Unavailable DURAND, JENNIE D Primary Care Unavailable JOSUEMARII Referring Unavailable DURAND, JENNIE D Primary Care Unavailable JOSUEMARII Referring Unavailable DURAND, JENNIE D Primary Care Unavailable Durand, DO Jennie D Primary Care Provider MD Marii Christiansen Emergency Provider DO Jose Maria henry Emergency Provider CEDRIC Javed Emergency Provider Eve BHAKTA, Imad Unavailable Elia Baires DO Primary Care Provider Alexis Shukla Attending Unavailable Bakari Chester Attending Unavailable REFERRAL, SELF Referring Unavailable Otto Larsen Attending Unavaila cece Durand, Jennie D Admitting Unavailable Durand, Jennie D Referring Unavailable Durand, Jennie D Attending Unavailable LEONOR CORDERO Attending Unavailable LEONOR CORDERO Admitting Unavailable Otto Larsen Attending UnavailAlexis Bergman Attending Unavailable Tevin Carson DO Primary Care Provider Unavailable Primary Care Provider Unavailbehzad e Unavailable Primary Care Provider UnavailTIFFANIE Love Primary Care Physician Natacha Schroeder DO Unavailable ALEAH HOWARD Referring Unavailable KURT BALBUENA Primary Care Physician Kurt Balbuena Unavailable NON STAFF Primary Care Provider Unavailbehzad Anderson APRN, Sailaja N Emergency Provider ESHA, KURT A Attending Unavailable ESHA, KURT A Admitting Unavailable ESHA, KURT A Attending Unavailable TIFFANIE MARADIAGA Primary Care Unavailable KURT BALBUENA A Attending Unavailable Corby Larsen DO Unavailable [phone] ESHA, KURT A Attending Unavailable ESHA, KURT A Admitting Unavailable ESHA, KURT A Attending Unavailable ESHA, KURT A Attending Unavailable CARSON, TEVIN Attending Unavailable CARSON, TEVIN Primary Care Unavailable FATUMA TYLER Attending Unavailable CARSON, TEVIN Primary Care Unavailable CARSON, TEVIN Primary Care Unavailable ABI ASIF Referring Unavailable CARSON, TEVIN Primary Care Unavailable CARSON, TEVIN Attending Unavailable CARSON, TEVIN [...] NON STAFF Primary Care Provider Unavailbehzad e AsadSailaja chin APRN Emergency Provider Jacob Baker MD Attending Provider [phone] MARII JOSUE Referring Unavailable JENNIE DURAND Primary Care Unavailable NON STAFF Primary Care Provider Unavailbehzad e Corby Larsen DO Attending Provider [phone] ALEAH HOWARD Attending Unavailable Jose Roberto Card FELT COVERER.POLICY ADVISER, [facility] Unavailable MARII RICK Admitting Unavailable MARII RICK Attending Unavailable Bryan Avila Attending Unavailable MOLLY GREGORIO Admitting Unavailable BERNARD MOLLY Referring Unavailable MOLLY GREGORIO Attending Unavailable Babar Mayers Referring Unavailable Babar Mayers Attending Unavailable Babar Mayers Admitting Unavailable Durand, Jennie D Admitting Unavailable Durand, Jennie D Referring Unavailable Durand, Jennie D Attending Unavailable Fernandez Daniels Consulting Unavailable BERNARD MOLLY Admitting Unavailable BERNARD MOLLY Referring Unavailable BERNARDMOLLY BUCHANAN Attending Unavailable MD Fernandez Daniels Consulting Unavailable OthmanFernandez Consulting Unavailable [place], Jak W Referring Unavailable [place], Jak W Attending Unavailable [place], Jak W Admitting Unavailable Babar Mayers Attending Unavailable Babar Mayers Referring Unavailable Jennie Durand Attending Unavailable Jennie Durand Admitting Unavailable Rhiew, David B Referring Unavailable Rhiew, David B Attending Unavailable Rhiew, David B Admitting Unavailable Rhiew, David B Attending Unavailable Rhiew, David B Admitting Unavailable AustinBryan Attending Unavailable Hajdliang, Astrchelsea H Attending Unavailable ESHA, KURT A Attending Unavailable ESHA, KURT A Attending Unavailable ESHA, KURT A Attending Unavailable Kate, Orlando Attending Unavailable Kate, Orlando Admitting Unavailable Rhiew, David B Referring Unavailable Kate, Orlando Attending Unavailable Kate, Orlando Admitting Unavailable Jennie Durand Referring Unavailable Kate, Orlando Referring Unavailable Kate, Orlando Attending Unavailable Kate, Orlando Admitting Unavailable Jennie Durand Referring Unavailable DurandJennie badillo Attending Unavailable MOLLY GREGORIO Referring Unavailable [place], Jak W Attending Unavailable Esha DIRECTOR LOAN, Kurt Lehman Unavailable Corby Larsen DO Unavailable [phone] Unallocatradha BHAKTA, Noms Provider [facility] Lind[facility] Keen APRN Primary Care Provider Efrem Victor MD Attending Provider Aaliyah Zamudio DO Attending Provider Jennie Durand DO Primary Care Provider SHAZIA ELISE Attending Unavailable AALIYAH ZAMUDIO Attending Unavailable MOLLY GREGORIO Referring Unavailable AALIYAH ZAMUDIO Attending Unavailable CORBY LARSEN Attending Unavailable CORBY LARSEN Attending Unavailable Sami Brewster Attending Unavailable BERNARDMOLLY BUCHANAN Referring Unavailable [employer] [place], Jak W Admitting Unavailable [employer] [place], Jak W Attending Unavailable [place], Jak W Referring Unavailable MARII RICK Admitting Unavailable MARII RICK Attending Unavailable Jennie Durand Referring Unavailable Babar Mayers Admitting Unavailable Babar Mayers Attending Unavailable Jak Peace Attending Unavailable NONE, XXXX Referring Unavailable aBbar Mayers Referring Unavailable Babar Mayers Attending Unavailable Lindy Keen APRN Primary Care Provider [phone] Efrem Victor MD Attending Provider [phone] Jennie Durand Primary Care Unavailable Itzkowitz, Aaliyah Admitting Unavailable Itzkowitz, Aaliayh Attending Unavailable Lindy Keen Primary Care Unavailable Valente, Efrem Admitting Unavailab le ValenteMarie marinEfrem Attending Unavailab le Itzkowitz, Aaliyah Admitting Unavailable Itzkoaimeetz, Aaliyah Attending Unavailable Jennie Durand Primary Care Unavailable NON STAFF Primary Care Unavailable SafSailaja chin N Admitting Unavailable Sailaja Anderson Attending Unavailable Jennie Durand Primary Care Unavailable Itzkowitz, Aaliyah Admitting Unavailable Itzsherietz, Aaliyah Attending Unavailable Corby Larsen Admitting Unavailab Corby Apodaca Attending Unavailab le NON STAFF Primary Care Unavailable Jacob Baker Admitting Unavailable Jacob Baker Attending Unavailable NON STAFF Primary Care Unavailable Allergies Allergy Classification Reported Allergen(s) Allergy Type Date of Onset Reaction(s) Facility coconut allergenic extract (7 sources) coconut allergenic extract Drug Allergy 07-18-20 [facility] (20 sources) coconut allergenic extract; Translations: [Coconut Oil] Drug Allergy 07-18-20 Itching [place], [place] (19 sources) Coconut Flavor; Translations: [COCONUT FLAVOR] Propensity to adverse reactions to drug 05-09-20 Anaphylaxis [place] (1 source) SOAP; Translations: [SOAP] Propensity to adverse reactions to drug (disorder) [facility]13-19 [facility]) Pencils; Translations: [Unknown] Propensity to adverse reactions (disorder) 11-13-19 [facility] (20 sources) Coconut extract; Translations: [coconut] Drug Allergy 07-18-20 20 Swelling [facility] (20 sources) ARIPiprazole lauroxil; Translations: [aripiprazole] Drug Allergy suicidal [facility] (20 sources) ARIPiprazole; Translations: [aripiprazole] Drug Allergy 08-19-20 22 Mental Status Change, Other: See Comments, Unknown, Other [facility] Comment on above: Pt states it makes h er suicidal. (1 source) ARIPiprazole Drug Allergy 10-30-19 23 [facility] (20 sources) busPIRone; Translations: [Buspirone] Drug Allergy Unknown, palpitations [facility] (20 sources) buPROPion; Translations: [BUPROPION] Drug Allergy 07-16-20 21 Unknown, Other [facility] (20 sources) busPIRone; Translations: [buspirone] Drug Allergy 12-10-19 24 Palpitations [facility] Comment on above: rapid heart rate (4 sources) Coconut Oil, Hydrogenated; Translations: [COCONUT OIL, HYDROGENATED] Propensity to adverse reactions 07-18-20 20 Itching [facility] Work Phone: (10 sources) Coconut extract Drug [...] q4hr for headache, 12 cap(s), Refill(s) 0, [facility] #[id number], 170, cm, 08/22/22 10:41:00 EST, Height/Length Dosing, 85, kg, 08/22/22 10:41:00 EST, Weight Dosing Start Date: 08/22/22 Status: Ordered Start: 08-08-2022 take 1 capsule by [facility] every four hours for headache APAP/butalbital/caffeine 300 mg-50 mg-40 mg oral capsule 1 cap(s), Oral, q4hr for headache, 12 cap(s), Refill(s) 0, [facility] #[id number], 162, cm, 08/08/22 9:11:00 EST, Height/Length Dosing, 83.1, kg, 08/08/22 9:11:00 EST, Weight Dosing Start Date: 08/08/22 Status: Ordered acetaminophen 325 mg / oxyCODONE hydrochloride 5 mg oral tablet (7 sources) Opioid Agonist Start: 12-05-2022 End: 12-07-2022 acetaminophen-oxycodone 325 mg-5 mg Tab 1 tab(s), Oral, q6hr for pain for 2 day(s), 7 tab(s), Refill(s) 0, [id number], 170, cm, 11/21/22 10:37:00 EST, Height/Length Dosing, [...] 02/06/2021 Start: 01-30-2021 take 1 tablet by [facility] every four hours as needed for [...] COCET) 5-325 MG per tablet 1 tablet [id number] 200 actuat albuterol 0.09 mg/actuat metered dose inhaler (7 sources) beta2-Adrenergic Agonist Start: 05-30-2025 take 2 puff(s) by inhalation four times daily as needed Start: 07-08-2023 take 2 puff(s) by in [...] day(s), # 90 tab(s), Refills(s) 0, Pharmacy: [facility]/pharmacy #[id number], 170, cm, 03/03/25 7:35:00 EDT, Height/Length Dosing, 90.4, kg, 02/17/25 18:58:00 EDT, Weight Dosing Start Date: 03/03/25 Stop Date: 04/02/25 Status: Ordered Quantity: 90.0 Unit: tab(s) Repeat number: 1 brompheniramine maleate 0.4 mg/ml / dextromethorphan hydrobromide 2 mg/ml / pseudoephedrine hydrochloride 6 mg/ml oral solution (3 sources) alpha-Adrenergic Agonist, Uncompetitive N-kppsqe-N-aspartat e Receptor Antagonist, Sigma-1 Agonist Start: 02-17-2025 take 10 mL by mouth four times daily Bromfed DM oral syrup 10 mL, Oral, QID for cold symptoms, 200 mL, Refill(s) 0, [facility]/pharmacy #[id number], 170, cm, 02/17/25 18:58:00 EDT, Height/Length Dosing, 90.4, kg, 02/17/25 18:58:00 EDT, Weight Dosing Start Date: 02/17/25 Status: Ordered Quantity: 200.0 Unit: mL Repeat number: 1 calcium chloride 0.0014 meq/ml / potassium chloride 0.004 meq/ml / sodium chloride 0.103 meq/ml / sodium lactate 0.028 meq/ml injectable solution (4 sources) Start: 09-18-2023 lactated ringers IV soln infusion Start: 01-07-2021 End: 01-07-2021 [...] day(s), # 42 tab(s), Refills(s) 0, Pharmacy: [facility]/pharmacy #[id number], 170, cm, 08/22/22 10:41:00 EST, Height/Length [...] 325 mg oral tablet (20 sources) Start: 05-16-2025 take 1 tablet by mouth once daily Ferrous Sulfate 325 mg (65 mg iron) tablet Active 65 MG PO Daily May 16, 2025 12:00am Complies with drug therapy Start: 09-15-2024 take 1 tablet by mouth once da rafita ferrous sulfate 325 mg Tab TAKE 1 TABLET BY MOUTH EVERY DAY FOR 30 DAYS Start Date: 09/15/24 Status: Ordered Repeat number: 1 Start: 06-22-2008 End: 02-13-2022 ferrous sulfate(IRON 325 MG (65 MG IRON) TAB) Ferrous Sulfate (IRON PO) Take by mouth Active gabapentin 600 mg oral table t (20 sources) Anti-epileptic Agent Start: 05-30-2025 Start: 01-13-2025 take 1 tablet by [facility] three times daily gabapentin 600 mg Tab 600 mg = 1 tab(s), Oral, TID, # 90 tab(s), Refills(s) 2, Pharmacy: [facility]/pharmacy #[id number], 170, cm, 01/13/25 8:29:00 EDT, Height/Length Dosing, 88.5, kg, 01/13/25 8:29:00 EDT, Weight Dosing Start Date: 01/13/25 Status: Ordered Quantity: 90.0 Unit: tab(s) Repeat number: 3 Indications: Radiculopathy, lumbar region; Start: 10-14-2024 take 1 capsule by mo ut in the morning, then take 1 capsule by mouth in the evening, then take 1 capsule by mouth at bedtime gabapentin (Neurontin) 300 MG capsule Take 1 capsule by mouth in the morning and 1 capsule in the evening and 1 capsule before bedtime. 10/14/2024 Active Start: 10-14-2024 take 1 capsule by [facility] three times daily gabapentin 300 mg Cap 300 mg = 1 cap(s), Oral, TID, # 90 cap(s), Refills(s) 0, Pharmacy: [facility]/pharmacy #[id number], 170, cm, 10/14/24 9:02:00 EST, Height/Length [...] mg hydrOXYzine hydrochloride 50 mg oral tablet (15 sources) Antihistamine Start: 04-21-2022 hydrOXYzine hy drochloride 50 mg oral tablet Refills(s) 0 Start Date: 04/21/22 Status: Ordered Start: 01-08-2019 End: 07-18-2020 take 1 capsule by mouth three times daily Hydroxyzine Pamoate 25 mg capsule Discontinued 25 MG PO Three times daily January 08, 2019 12:00am July 18, 2020 3:27pm ibuprofen 600 mg oral tablet (4 sources) Nonsteroidal Anti-inflammatory Drug Start: 05-30-2025 take 4 tablets by mouth every twenty-four hours for pain Ibuprofen Not-Ta dwaine/PRN Ibuprofen Not-Ta dwaine labetalol (NORMODYNE;TRANDATE) injection 10 mg (1 source) Start: 09-18-2023 labetalol (NORMODYNE;TRANDATE) injection 10 mg labetalol (NORMODYNE;TRANDATE) injection syringe 5 mg (1 source) Start: 09-28-2020 labetalol (NORMODYNE;TRANDATE) injection syringe 5 mg lamoTRIgine 100 mg oral tablet (20 sources) Mood Stabilizer , Anti-epile ptic Agent Start: 05-16-2025 take 1 tablet by mouth once daily Lamotrigine 100 mg tablet Active 100 MG PO Daily May 16, 2025 12:00am Complies with drug therapy Start: 02-13-2025 take 2 tablets by mo uth twice daily lamoTRIgine (LAMICTAL) 25 mg tablet [...] daily. 07/25/2024 Discontinued (Course of therapy completed) magnesium oxide 400 mg oral tablet [...] day(s), # 18 tab(s), Refills(s) 0, Pharmacy: [facility]/pharmacy #[id number], 170, cm, 10/18/24 8:12:00 EST, Height/Length [...] 07/01/21 Status: Ordered Repeat number: 1 Start: 10-18-2021 Multi-Day Plus Minerals Oral, Daily, Refill(s) 0 [...] Daily August 11, 2022 12:00am Multivitamin Tablet (6 sources) Start: 08-11-2022 take 1 tablet by mouth once daily Multivitamin Tablet Active 1 TAB PO Daily August 11, 2022 1:00am Complies with drug therapy Start: 08-11-2022 take 1 tablet by [facility] once daily Start: 08-11-2022 take 1 tablet by [facility] once daily Multivitamin Tablet Active 1 TAB PO Daily August 11, 2022 1:00am Start: 08-11-2022 take 1 tablet by [facility] once daily Multivitamin Tablet Active 1 TAB PO Daily August 11, 2022 12:00am goppnvkqaksa-qic-cjua-FA-vit K (BARIATRIC MULTIVITAMINS) 45 mg iron- 800 mcg-120 mcg cap (20 sources) multivitamin-min -iron-FA-vit K (BARIATRIC MULTIVITAMINS) 45 mg iron- 800 mcg-120 mcg cap Take by mouth. Active multivitamin-min -iron-FA-vit K (BARIATRIC MULTIVITAMINS) 45 mg iron- 800 mcg- 120 mcg cap Take by mouth. 0 Active Comment on above: Take by mouth. swsajcftbmsf-cwq-eh on-FA-vit K (Bariatric Multivitamins) 45 mg iron- [...] day(s), # 20 tab(s), Refills(s) 0, Pharmacy: [facility]/pharmacy #[id number], 170, cm, 03/08/24 13:22:00 EDT, Height/Length Dosing, 89.4, kg, 03/08/24 13:22:00 EDT, Weight Dosing Start Date: 03/08/24 Stop Date: 03/18/24 Status: Ordered Start: 04-20-2022 take 1 tablet by [facility] twice daily as needed for pain naproxen 500 mg Tab 500 mg = 1 tab(s), Oral, BID, PRN for pain, # 20 tab(s), Refills(s) 0, Pharmacy: [facility]/pharmacy #[id number], 170, cm, 04/20/22 15:01:00 EDT, Height/Length Dosing, 81.5, kg, 04/20/22 15:01:00 EDT, Weight Dosing Start Date: 04/20/22 Status: Ordered 24 hr nicotine 0.583 mg/hr transdermal system (1 source) Cholinergic Nicotinic Agonist Start: 11-03-2022 End: 01-02-2023 nicotine 14 mg/24 hr Transderm ER Film 1 patch(es), Topical, Daily for 30 day(s), 30 patch(es), Refill(s) 1, [facility]/pharm[facility] #[id number], 170, cm, 11/03/22 13:04:00 EST, Height/Length Dosing, 83.9, kg, 11/03/22 13:04:00 EST, Weight Dosing Start Date: 11/03/22 Stop Date: 01/02/23 Status: Ordered 24 hr NIFEdipine 30 mg extended release oral tablet (7 sources) Dihydropyridine Calcium Channel Minnie Start: 05-16-2025 take 1 tablet by mouth once daily at bedtime Nifedipine 30 mg tablet extended release Active 30 MG PO Daily at bedtime May 16, 2025 12:00am Complies with drug therapy Start: 03-15-2025 take 1 tablet by [facility] once daily, then take 1 tablet by mouth every twenty-four hours NIFEdipine CC (Adalat CC) 30 MG 24 hr tablet Take 30 mg by mouth Daily 03/15/2025 Active nitrofurantoin macrocrystals-monohydrate 100 mg Cap (2 sources) Start: 01-29-2022 take 1 capsule by mouth twice daily at mealtime nitrofurantoin macrocrystals-monohydrate 100 mg Cap TAKE 1 CAPSULE BY MOUTH TWICE A DAY FOR 5 DAYS WITH FOOD Start Date: 01/29/22 Status: Ordered nitrofurantoin, macrocrystals 25 mg / nitrofurantoin, monohydrate 75 mg oral capsule (9 sources) Nitrofuran Antibacterial Start: 01-29-2022 take 1 capsule by mouth twice daily at mealtime nitrofurantoin macrocrystals-monohydrate 100 mg Cap TAKE 1 CAPSULE BY MOUTH TWICE A DAY FOR 5 DAYS WITH FOOD Start Date: 01/29/22 Status: Ordered nystatin [id number] unt/ml oral suspension (1 source) Polyene Antifungal [...] BID, # 6 tab(s), Refills(s) 1, Pharmacy: [facility]/pharm[facility] #[id number], 162, cm, 08/08/22 9:11:00 EST, Height/Length [...] MG tablet Take by mouth Active Trileptal (18 sources) Anti-epileptic Agent Start: 08-22-2022 Trileptal Refills(s) [...] Date: 07/01/21 Status: Ordered Start: 06-27-2020 End: 05-16-2025 take 1 tablet by mouth once daily Pantoprazole 40 mg tablet,delayed release (DR/EC) Discontinued 40 MG PO Daily July 18, 2020 1:00am May 16, 2025 9:25am End: 08-08-2024 take 1 tablet by mouth [...] day(s), # 21 tab(s), Refills(s) 0, Pharmacy: [facility]/pharmacy #[id number], 170, cm, 10/18/24 8:12:00 EST, Height/Length [...] day(s), # 60 cap(s), Refills(s) 0, Pharmacy: [facility]/pharmacy #[id number], 170, cm, 11/15/24 13:59:00 EST, Height/Length [...] day(s), # 60 cap(s), Refills(s) 1, Pharmacy: [facility]/pharmacy #[id number], 170, cm, 11/15/24 13:59:00 EST, Height/Length [...] 01-07-2021 scopolamine (TRANSDERM-SCOP) transdermal patch 1 patch semaglutide (10 sources) Start: 01-27-2025 inject 2.4 mg by subcutaneous injection every week semaglutide 2.4 mg, SubCutaneous, qWeek, Refills(s) 0 Start Date: 01/27/25 Status: Ordered Repeat number: 1 5 ml sodium chloride 9 mg/ml injection (19 sources) Start: 09-18-2023 sodium chloride flush 0.9 % injection 5-40 mL Start: [...] e flush 0.9 % injection 10 mL traZODone hydrochloride 100 mg oral tablet (20 sources) Serotonin Reuptake Inhibitor Start: 05-16-2025 take 1 tablet by mouth once daily at bedtime Trazodone 100 mg tablet Active 100 MG PO Daily at bedtime May 16, 2025 12:00am Complies with drug therapy Start: 08-22-2022 trazodone Refi lls(s) 0 Start Date: 08/22/22 Status: [...] day(s), # 7 tab(s), Refills(s) 0, Pharmacy: [facility]/pharmacy #[id number], 170, cm, 01/31/22 16:58:00 EDT, Height/Length [...] Nausea/Vomiting, # 12 tab(s), Refills(s) 0, Pharmacy: [facility]/pharmacy #[id number], 162, cm, 08/08/22 9:11:00 EST, Height/Length Dosing, 83.1, kg, 08/08/22 9:11:00 EST, Weight Dosing Start Date: 08/08/22 Status: Ordered Completed/Discontinued Medications Medication Drug Class(es) Dates Sig (Normalized) Sig (Original) acetaminophen 325 mg / HYDROcodone bitartrate 5 mg oral tablet (2 sources) Opioid Agonist End: 08-08-2024 take 1 tablet by mouth every six hours as needed HYDROcodone-acetami nophen ([place]) 5-325 mg tablet Take 1 tablet by [...] on above: Take 1 capsule by [facility] twice daily. Start from 500mg daily, increase to twice a day in a week ALPRAZolam 0.5 mg oral tablet (10 sources) Benzodiazepine Start: End: take 1 tablet by mouth three times daily as needed ALPRAZolam (Xanax) 0.5 mg tablet Take 1 tablet (0.5 mg) by mouth 3 times a day as needed. 11/22/2020 08/08/2024 Discontinued (Therapy completed) Start: 11-22-2020 take 1 tablet by [facility] once daily as needed for anxiety [...] REXULTI 4 MG TABS tablet Start: 01-08-2019 End: 05-16-2025 take 1 tablet by mouth once daily at bedtime Brexpiprazole (Rexulti) 3 mg Tablet Discontinued 4 MG PO Daily at bedtime January 08, 2019 12:00am May 16, 2025 9:20am Rexulti Active Comment on above: Take by mouth once d aily. calcium carbonate 1250 mg oral tablet (18 sources) Start: 08-11-2022 End: 05-16-2025 take 1 tablet by mouth twice daily Calcium Carbonate 500 mg calcium (1,250 mg) Tablet Discontinued 500 MG PO Twice daily August 11, 2022 1:00am May 16, 2025 9:24am take 1 tablet by mouth once otto y calcium carbonate (OSCAL) 500 MG TABS tablet Take 1 tablet by mouth daily Josue melts 0 Suspended calcium citrate 0.415 mg/mg / cholecalciferol 0.1 [...] completed) doxycycline hyclate 100 mg oral capsule (5 sources) Tetracycline-clas s Drug Start: 05-16-2025 End: 05-30-2025 take 1 capsule by mouth every twelve hours Doxycycline Hyclate 100 mg capsule Discontinued 60 MG PO Every 12 hours May 16, 2025 12:00am May 30, 2025 8:25am [employer] capsule Orally every 12 hrs; Note: Source Status: Not-Takingundefine dPRN; Refills: 0; Provider: Emmanuel Avila Start: 12-03-2018 take 1 capsule by [facility] every twelve hours Doxycycline Hyclate 100 MG [...] Discontinued 30 MG PO Daily at bedtime 30 July 20, 2020 1:00am August 19, 2022 [...] Start: 01-08-2019 take 1 capsule by [facility] twice daily Duloxetine (Cymbalta) 60 mg Capsule,Delayed Release(Dr/Ec) Active 60 MG PO Twice daily January 08, 2019 12:00am Complies with drug therapy Start: 01-08-2019 End: 03-08-2024 take 1 capsule by mouth once daily at bedtime Duloxetine (Cymbalta) 60 mg Capsule,Delayed Release(Dr/Ec) Active 60 MG PO Daily at bedtime January 08, 2019 12:00am take 1 capsule by [facility] every eight hours Cymbalta 30 MG 1 capsule Orally three times a day Active Cymbalta Active Comment on above: Take 60 mg by mouth once daily. ergocalciferol 1.25 mg oral capsule (13 sources) Provitamin D2 Compound Start: 07-19-2020 End: 08-19-2022 Ergocalciferol (Vitamin D2) 1,250 mcg (50,000 unit) capsule Discontinued 98116 UNIT PO every week July 19, 2020 1:00am August 19, 2022 8:39am Start: 07-19-2020 End: 08-19-2022 take 53156 [IU] by mouth every week Ergocalciferol (Vitamin D2) Discontinued 83321 UNIT PO every week July 19, 2020 1:00am August 19, 2022 8:39am 2 ml fentaNYL 0.05 mg/ml injection (3 sources) Opioid Agonist Start: 01-30-2021 End: 01-30-2021 fentaNYL (SUBLIMAZE) injection 50 mcg Start: 01-07-2021 End: 01-07-2021 fentaNYL (SUBLIMAZE) injecti on 25 mcg iohexol (OMNIPAQUE 240) injection 30 mL (1 [...] 2022 1:00am July 03, 2023 10:07am LORazepam 0.5 mg oral tablet (20 sources) Benzodiazepine Start: 12-31-2023 End: 05-16-2025 take 1 tablet by mouth three times daily as needed for anxiety Lorazepam (Ativan) 0.5 mg tablet Discontinued 0.5 MG PO Three times daily as needed for anxiety 6 2 December 31, 2023 12:00am May 16, 2025 9:25am Start: 01-31-2020 End: 08-19-2022 take 1 tablet [...] hours if needed. 08/08/2024 Discontinued (Therapy completed) Magic Mouthwash (10 sources) Start: 02-06-2022 End: 02-20-2022 Magic Mouthwash Magic Mouthwash, 5 mL, Oral, TID, 240 mL, 0, Swish and swallow. 30 mL Nystatin + 210 mL Diphenhydramine + #5 tabs 20 mg hydrocortisone + Doxycycline 1,000 mg (tabs/cap)., [facility] #[id number], Compound, 170, cm, 02/06/22 9:17:00 EDT, [...] mouth daily 0 12/24/2020 Discontinued (LIST CLEANUP) Semaglutide (7 sources) Start: 12-31-2023 End: 05-16-2025 Semaglutide (Ozempic) 0.25 m g or 0.5 mg (2 mg/3 mL) pen injector Discontinued 0.5 MG SUBCUT every week December 31, 2023 12:00am May 16, 2025 9:25am for 4 weeks Start: 12-31-2023 Start: 12-31-2023 Semaglutide (O zempic) 0.25 mg or 0.5 mg (2 mg/3 mL) pen injector Active 0.5 MG SUBCUT every week December 30, 2023 11:00pm for 4 weeks Start: 12-31-2023 Semaglutide (O zempic) 0.25 mg or 0.5 mg (2 mg/3 mL) pen injector Active 0.5 MG SUBCUT every week December 31, 2023 12:00am for 4 weeks SEMAGLUTIDE SUBCUTANEOUS (3 sources) End: 03-08-2024 SEMAGLUTIDE SUBCUTANEOUS Inj ect subcutaneously. 0 03/08/2024 Discontinued SEMAGLUTIDE SUBC UTANEOUS Inject subcutaneously. 0 Active sucralfate 1000 mg oral tablet (11 sources) Aluminum Complex Start: 07-30-2023 End: 12-31-2023 take 1 tablet by mouth four times daily Sucralfate 1 gram tablet Discontinued 1 GM PO Four times daily August 15, 2023 1:00am December 31, 2023 12:00pm SUMAtriptan (3 sources) Serotonin-1b and Serotonin-1d Receptor Agonist Imitrex Not-Taking/PRN Imitrex Not-Taki ng terbinafine 250 mg oral tablet (13 sources) Allylamine Antifungal Start: 07-19-2020 End: 07-20-2020 take 1 tablet by mouth once daily Terbinafine Hcl 250 mg tablet Discontinued 250 MG PO Daily July 19, 2020 1:00am July 20, 2020 11:10am topiramate 100 mg oral tablet (20 sources) Start: 08-15-2023 End: 05-16-2025 Topiramate (Topamax) 100 mg tablet Discontinued 50 MG PO Daily August 15, 2023 12:47pm May 16, 2025 9:25am Start: 11-20-2022 End: 06-03-2023 topiramate (TOPAMAX) 100 [...] then 25mg for 1-2 weeks, then stop triamcinolone acetonide 1 mg/ml topical cream (7 [...] 2 Resolved: 4 Chronic Headache; including migraine (20 sources) Tension-type headache; Translations: [Tension-type headache, unspecified, [...] [Depression, unspecified] Onset: 0 Nausea and vomiting (16 sources) Vomiting, unspecified; Translations: [Nausea] Onset: 2 [...] 4 Episodic Other aftercare (1 source) Other longterm (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; 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: [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] Onset: 3 Episodic Other bone disease and musculoskeletal deformities (3 sources) Segmental and somatic dysfunction; Translations: [Segmental and somatic dysfunction of head region] Onset: 2 Episodic Other bone disease and musculoskeletal deformities (7 sources) Cervical somatic dysfunction 08-22-2022 Episodic Other bone disease and musculoskeletal deformities (7 sources) Somatic dysfunction of head region 12-09-2022 Episodic Other bone disease and musculoskeletal deformities [...] of pancreas 07-01-2021 Episodic Other gastrointestinal disorders (6 sources) Cyst of abdomen 08-23-2023 Episodic Other [...] and subcutaneous tissue] Episodic Other skin disorders (6 sources) Loss of hair; Translations: [Nonscarring hair loss, unspecified] 09-15-2024 Episodic Personality disorders (20 sources) Borderline personality disorder; Translations: [Borderline personality disorder] Onset: 0 05-23-2020 Chronic Poisoning by psychotropic agents (20 sources) Intentional benzodiazepine overdose; Translations: [Poisoning by benzodiazepines, intentional self-harm, initial encounter] 04-21-2022 Episodic Residual codes; unclassified (10 sources) Patient encounter status; Translations: [Encounter for [...] EXPOS COVID-19] Onset: 2 Unclassified (1 source) You may use alternating doses of ibuprofen (Motrin) 600 mg followed 3 hours later by 2 extra strength Tylenol's, followed 3 hours later by ibuprofen 600 mg. You may continue this repeating schedule for pain management. Viral infection (1 source) COVID-19; Translations: [COVID-19] Onset: 2 Past or Other Problems Problem Classification Problem Date Documented Da te Episodic/Chronic Abdominal hernia (7 sources) Hiatal hernia; Translations: [Diaphragmatic hernia without obstruction or gangrene] Resolved: 07-24-2021 Episodic Acquired foot deformities (15 sources) Acquired [...] Episodic Comment on above: noted in 09/16/2024 [facility] Records page 5. added per OP CDI policy. Diseases of mouth; excluding dental (4 sources) Lesion of oral mucosa; Translations: [Unspecified lesions of oral mucosa] Onset: 02-06-2022 Episodic Fever of unknown origin (3 sources) Fever, unspecified; Translations: [FEVER UNSPECIFIED] Onset: 05-30-2022 Episodic Fluid and electrolyte disorders (6 sources) Dehydration; Translations: [Dehydration] Onset: 01-26-2021 Resolved: 02-25-2021 Episodic Malaise and fatigue (17 sources) Asthenia; Translations: [Weakness] Onset: 01-31-2024 01-31-2024 [...] Test Name Value Interpretation Reference Range Facility [facility] [place] 05-30-2025 L --- Specimen: [id number] Received: 05/30/25 Status: FABBY Zaldivarsteven Num: [id number] Spec Type: Surgical Subm Dr: Aaliyah Zamudio DO Tissues: A Breast Lumpectmy/Mass - Requiring Micros Eval of Margins (L BREAST TISSUE AN Procedures: HE/18, Gross/Micro L5 Age/ Patient Sex Location Account Attending Physician Shazia Chou 34/F [place] [id number] Aaliyah Zamudio DO SPEC NUM: [id number] RECD: 05/30/25 STATUS: OKAdair HOLT NUM: [id number] JUAN: 05/30/[address] [facility] [address]: Aaliyah Zamudio DO ENTERED: 05/30/25 ANAI WALTERS: SPEC TYPE: Surgical DEPT: S ENTERED BY: [id number] RECV BY: [id number] ORDERED: HE/18, Gross/Micro L5 ORDERED: HE/18, Gross/Micro L5 Pathological Diagnosis Left breast, radioactive-seed guided lumpectomy: - 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 - Anterior, medial, superior and posterior margins are within 1 mm from PASH. - Prior biopsy site changes with foreign-body giant cell reaction. - No evidence of malignancy identified. Clinical Information Left breast pseudoangiomatous stromal hyperplasia (PASH). Gross Description Received fresh labeled with the patients name, date of , and Left breast tissue with 1 radioactive seed is a left breast lumpectomy specimen that contains 1 radioactive seed. The specimen is received oriented by the surgeon with ink as follows: Superior-Red Inferior-Blue Medial-Yellow Lateral-[place] Anterior-Green Posterior-Black The lumpectomy is 4 cm superior to inferior, 5 cm medial to lateral, and 2 cm anterior to posterior. The specimen is serially sectioned progressing from lateral to medial into 11 levels. Within level 2?11 is a garcia-white, densely fibrous area, 3.5 cm superior to inferior, 4 cm lateral to medial, and 2 cm anterior to posterior. Within the densely fibrous of level 6 is a ribbon clip. A radioactive seed is identified in level 7 that is transferred to nuclear medicine. Specimen: [id number] Received: 05/30/25 Status: FABBY Holt Num: [id number] Spec Type: Surgical Subm Dr: Aaliyah Zamudio DO Tissues: A Breast Lumpectmy/Mass - Requiring Micros Eval of Margins (L BREAST TISSUE AN Procedures: HE/18, Gross/Micro L5 Patient: Linda Choudion Bach [id number] (Continued) Specimen: [id number] Received: 05/30/25 (Continued) Gross Description (Continued) Signed (signature on file) Terry Quintanilla MD 05/31/25 1332 Specimen: [id number] Received: 05/30/25 Status: FABBY Holt Num: [id number] Spec Type: Surgical Subm Dr: Aaliyah Zamudio DO Tissues: A Breast Lumpectmy/Mass - Requiring Micros Eval of Margins (L BREAST TISSUE AN Procedures: SULEIMANSivan Gross/Micro L5 Patient: Shazia Chou [id number] (Continued) Specimen: [id number] Received: 05/30/25-955 (Continued) Gross Description (Continued) The densely fibrous area is situated from the margins as follows: Superior-adjacent (less than 0.1 cm) Inferior-1 cm Lateral-1 cm Medial-0.1 cm Anterior-adjacent (less than 0.1 cm) Posterior-adjacent (less than 0.1 cm) The remaining cut surfaces are comprised of approximately 90% adipose tissue and 10% breast tissue. The specimen is entirely submitted progressing from lateral to medial. Fixation Time: Time specimen extracted: 941 Time specimen placed in formalin: 951 Cold ischemic time: 10 minutes Total fixation time: 8 hours Cassettes: A1 Level 1, lateral margin A2 Level 2, most lateral aspect of densely fibrous area A3 Level 3 densely fibrous area with closest anterior margin A4?A5 Level 4, densely fibrous area (to include closest inferior margin in A5) A6?A7 Level 5, densely fibrous area A8?A9 Level 6, densely fibrous area (to include ribbon clip site in A8) A10?A11 Level 7, densely fibrous area (to include closest superior margin and radioactive seed site in A10) A12?A13 Level 8 (to include closest posterior margin in A13) A14?A15 Level 9, densely fibrous area A16 Level 10, densely fibrous area A (more content not included)... Normal [facility] MM surgical specimen LTon MM surgical specimen [facility] [address] [place] [address] Mammography Report Signed Patient: Shazia Chou MR#: [id number] : 1990 Acct:[id number] Age/Sex: 34 / F Adm Date: 05/30/25 Loc: [place] Room: Type: [facility] Attending Dr: Aaliyah Zamudio DO Ordering Provider: Aaliyah Zamudio DO Date of Service: 05/30/25 Procedure(s): MM surgical specimen LT Accession Number(s): ([id number]) MM/MM surgical specimen LT: POST LUMPECTOMY Copies to: Jennie Durand DO Aaliyah Zamudio DO CLINICAL INFORMATION: [Left] breast lumpectomy. SPECIMEN RADIOGRAPH: A single radiograph of the [left] breast specimen showed a metallic marking clip and radioiodine seed within the specimen. The images were reviewed by the attending physician during the procedure. Impression dictated by: Denny Escalante M.D. 05/30/2025 2:10 PM Dictation Location: RADIO-PC-23 Dictated By: Denny Escalante MD 05/30/25 1408 Signed By: 05/30/25 1410 Normal [facility] US breast needle loc LTon US breast needle loc LT [facility] [place] [address] Ultrasound Report Signed Patient: Shazia Chou MR#: [id number] : 1990 Acct:[id number] Age/Sex: 34 / F ADM Date: 05/30/25 Loc: [place] Room: Type: [facility] Attending Dr: Aaliyah Zamudio DO Ordering Provider: Aaliyah Zamudio DO Date of Service: 05/29/25 US/US breast needle loc LT: LEFT U/S GUIDED RADIOACTIVE SEED LOC ([id number]) MM/MM diagnostic mammo LT w/CAD: POST U/S RADIOACTIVE SEED LOC Copies to: Aaliyah Zamudio DO Ultrasound radioactive seed localization 7 cm needle utilized. Local lidocaine administration and Sterile technique utilized. The needle advanced to the area of concern. . The needle tip positioned near the area of concern. Radiation seed was administered. Needle was removed. There is no complication. The seed is adjacent to the biopsy marking clip. Patient expressed no immediate complications and discharged in satisfactory condition. The dosage of the radiation seed is 0.118 mCi. US/US breast needle loc LT IMPRESSION: Successful radioactive seed localization. RESULT CODE: NL Impression dictated by: Clinton Hadley M.D. 05/29/2025 11:38 AM Dictation Location: [facility] Tech: Molly Price Transcribed By: MARKY 05/29/25 1138 Dictated By: Clinton Hadley DO 05/29/25 1131 Signed By: 05/29/25 1138 Normal [facility] US breast needle loc LT [place] [id number] Ultrasound Report Signed Patient: Shazia Cohu MR#: [id number] : 1990 Acct:[id number] Age/Sex: 34 / F ADM Date: 05/04/25 Loc: [place] Room: Type: [facility] [place] Attending Dr: Aaliyah Zamudio DO Ordering Provider: Aaliyah Zamudio DO Date of Service: 05/29/25 US/US breast needle loc LT: LEFT U/S GUIDED RADIOACTIVE SEED LOC ([id number]) MM/MM diagnostic mammo LT w/CAD: POST U/S RADIOACTIVE SEED LOC Copies to: Aaliyah Zamudio DO Ultrasound radioactive seed localization 7 cm needle utilized. Local lidocaine administration and Sterile technique utilized. The needle advanced to the area of concern. . The needle tip positioned near the area of concern. Radiation seed was administered. Needle was removed. There is no complication. The seed is adjacent to the biopsy marking clip. Patient expressed no immediate complications and discharged in satisfactory condition. The dosage of the radiation seed is 0.118 mCi. US/US breast needle loc LT IMPRESSION: Successful radioactive seed localization. RESULT CODE: NL Impression dictated by: Clinton Hadley M.D. 05/29/2025 11:38 AM Dictation Location: [facility] Tech: Molly Price Transcribed By: MARKY 05/29/25 1138 Dictated By: Clinton Hadley DO 05/29/25 1131 Signed By: 05/29/25 1138 Normal [facility] Heart and Vascular Office/Cl inic Noteon 04-27-2025 Heart and Vascular Office/Clinic Note [...] she becomes more symptomatic with heart rhythms. Arielle Ware personally transcribed this note for on 04/27/2025 at 1540. Follow-up With When Contact Information Nata BHAKTA, Jak W, CAR Within [address] [place] [address]- Additional Instructions: Nata BHAKTA, Jak W, CAR Within [address] [place] [address]- Additional Instructions: Problem List/Past Medical [...] 0 Allergies (more content not included)... Normal [facility] Comment on above: Result Comment: Elec tronically Signed By: Jak Peace MD W\.br\Date and Time Signed: 04/27/25 15:42 EDT\.br\Electronically Co-Signed By: Roxana Shipman R\.br\Date and Time Co-Signed: 04/27/25 15:40 EDT MM diagnostic mammo LT w/CAD on 04-26-2025 MM diagnostic mammo LT w/CAD [facility] [place] [address] Ultrasound Report Signed Patient: Shazia Chou MR#: [id number] : 1990 Acct:[id number] Age/Sex: 34 / F ADM Date: 04/26/25 Loc: [place] Room: Type: [facility] Attending Dr: Aaliyah Zamudio DO Ordering Provider: Aaliyah Zamudio DO Date of Service: 04/26/25 MM/MM diagnostic mammo LT w/CAD: follow up for Left breast Upper outer quadrant ([id number]) US/US breast LT limited: follow with mamm [...] Escalante M.D. 04/26/2025 10:15 AM Dictation Location: [facility] Tech: Shazia MullenSkip Vaughn Transcribed By: MARKY 04/26/25 1015 Dictated By: Denny Escalante MD 04/26/25 1009 Signed By: 04/26/25 1015 Normal [facility] NM Myocardial Spect Rest/Str ess 1 Dayon 04-26-2025 HI Myocardial Spect Rest/Stress 1 Day Exam Date/Time: 04/17/2025 11:57 EDT Reason for Exam: R00.2;[place] [address] Nuclear Stress Report Name: SHAZIA CHOU Study Date: 04/17/2025 08:00 AM Patient Location: [facility] : 1990 (M/d/yyyy) Gender: Female Age: 34 yrs Ethnicity: T Reason For Study: R00.2;Chest pain Ordering Physician: Jak Peace Referring Physician: Jak Peace Protocol 08219 Pharmacologic Lexiscan stress with Isotope. Study Protocol: [...] Signed by: Catalino Vaca MD Transcribed by: [facility] Technologist: SHAHZAD Walters [facility] S. pyogenes DNA JOSÉ MIGUEL+probe No m (Unsp spec)on 04-09-2025 Interpretation and review of laboratory results Normal [facility] Healthcare RESULT Negative Negative [facility] Healthcare [facility] Event Monitoron 03-15-2025 Event Monitor Event [...] rhythm. READ BY: terrell Arredondo Dictated: 03/10/2025 [id number] Transcribed: 03/14/2025 cc:*Jak Peace M.D. [facility] Comment on above: Result Comment: Elec tronically Signed By: Lio BHAKTA, Catalino Baker\.br\Date and Time Signed: 03/15/25 07:49 EDT Main OR Intraoperative Recor don 03-03-2025 Main OR Intraoperative Record Main OR Intraoperative Record IntraOp Document Type FTPM Summary Primary Physician: Babar Mayers DO Finalized Date/Time: 03/03/25 08:45:29 Pt. Name: SHAZIA CHOU/Sex: 1990 Female Med Rec #: [id number] Physician: Babar Mayers DO Financial #: [id number] Pt. Type: P Room/Bed: / Admit/Disch: 03/03/25 [...] Lulu Bellamy Role Performed Surgeon - Primary Cloth Covered Helmet Puller - Primary Scrub - Primary Time In 03/03/25 08:33:00 03/03/25 08:33:00 03/03/25 08:33:00 Time Out 03/03/25 08:45:00 03/03/25 08:45:00 03/03/25 08:45:00 Procedure MEDIAL BRANCH MEDIAL BRANCH MEDIAL BRANCH BLOCK(Bilateral) BLOCK(Bilateral) BLOCK(Bilateral) Comments Last Modified By: Corby Rand RN, RN, Christopher Harvey RN, Christopher M 03/03/25 08:44:15 03/03/25 08:44:15 03/03/25 08:44:15 Entry 4 Case Attendee Amina Allen (R) Role Performed Crawler Dragline Operator Time In 03/03/25 08:33:00 Time Out 03/03/25 [...] and tissue Entry 1 Skin Integrity Intact, [place], Warm, & Skin Abnormality No Dry Outcomes [...] Checked Ye (more content not included)... Normal [facility] Main OR Preoperative Recordo n 03-03-2025 Main OR Preoperative Record Main OR Preoperative Record Holding Area Document Type FTPM Summary Primary Physician: Babar Mayers DO Finalized Date/Time: 03/03/25 07:33:54 Pt. Name: SHAZIA CHOU/Sex: 1990 Female Med Rec #: [id number] Physician: Babar Mayers DO Financial #: [id number] Pt. Type: P Room/Bed: / Admit/Disch: 03/03/25 [...] By: Gabrielle Sultana RN 03/03/25 07:33 Normal [facility] CBC w/Indiceson 03-02-2025 Erythrocyte distribution width (RBC) [Ratio] 14.4 % High 10.9-14.2 [facility] Comment on above: Performed By: #### 2 [id number] #### [facility] [address] [place] [address] Hematocrit (Bld) [Volume fraction] 39.0 % Normal 34.0-46.0 [facility] Comment on above: Performed By: #### 2 [id number] #### [facility] [address] [place] [address] Hemoglobin (Bld) [Mass/Vol] 13.2 g/dL Normal 12.0-16.0 [facility] Comment on above: Performed By: #### 2 [id number] #### [facility] [address] [place] [address] MCH (RBC) [Entitic mass] 33.5 pg Normal 27.0-34.0 [facility] Comment on above: Performed By: #### 2 [id number] #### [facility] [address] [place] [address] MCHC (RBC) [Mass/Vol] 33.8 g/dL Normal 31.4-36.0 [facility] Comment on above: Performed By: #### 2 [id number] #### [facility] [address] [place] [address] MCV (RBC) [Entitic vol] 99.1 fL Normal 80.0-100.0 [facility] Comment on above: Performed By: #### 2 [id number] #### [facility] [address] [place] [address] Platelet 325.0 E9/L Normal 150.0-500.0 [facility] Comment on above: Performed By: #### 2 [id number] #### [facility] [address] [place] [address] Platelet mean volume (Bld) [Entitic vol] 9.5 fL Normal 6.4-10.8 [facility] Comment on above: Performed By: #### 2 [id number] #### [facility] [address] [place] [address] RBC 3.9 E12/L Low 4.3-5.9 [facility] Comment on above: Performed By: #### 2 [id number] #### [facility] [address] [place] [address] RBC morphology finding Nom (Bld) NORMAL Invalid Interpretation Code [facility] Comment on above: Performed By: #### 2 [id number] #### [facility] [address] [place] [address] WBC 13.1 E9/L High 4.0-11.0 [facility] Comment on above: Performed By: #### 2 [id number] #### [facility] [address] [place] [address] CHEMISTRYOrdered By: SYSTEM SYSTEM on 03-02-2025 Ferritin [Mass/Vol] 11 ng/mL Normal 11 - 307 ng/mL Remisol Chem Iron [Mass/Vol] 156 ug/dL High 35 - 153 mcg/dL Remisol Chem Iron binding capacity [Mass/Vol] 403 ug/dL High 250 - 400 mcg/dL Remisol Chem Transferrin [Mass/Vol] 288 mg/dL Normal 200 - 370 mg/dL Remisol Chem Ferritinon 03-02-2025 Ferritin Lvl 11 ng/mL Normal 11-307 [facility] Comment on above: Performed By: #### 2 [id number] #### [facility] [address] [place] [address] HEMATOLOGYOrdered By: SYSTEM SYSTEM on 03-02-2025 Erythrocyte [...] Ironon 03-02-2025 Iron 156 microgram/dL High 35-153 [facility] Comment on above: Performed By: #### 2 [id number] #### [facility] [address] [place] [address] TIBC Calculatedon 03-02-2025 TIBC 403 microgram/dL High 250-400 [facility] Comment on above: Performed By: #### 1 [id number] #### [facility] [address] [place] [address] Transferrin [Mass/Vol] 288 mg/dL Normal 200-370 [facility] Comment on above: Performed By: #### 1 [id number] #### [facility] [address] [place] [address] ED Note-Physicianon 02-22-20 25 ED Note-Physician ED [...] and symmetry. No ataxia with finger-nose or [id number]. Intact strength and sensation of bilateral upper and lower extremities. No Dysphasia. Psychiatric: Cooperative and appropriate Procedure [x]The patient has acute bronchitis/bronchioliti s and antibiotics were not prescribed or dispensed today.[[facility] PERFORMANCE] [] The patient has acute bronchitis/bronchioliti [...] unspecified) Dizzi (more content not included)... Normal [facility] Comment on [...] DO Transcribed by: MARCO Technologist: DANISH Walters [facility] BMPon 02-17-2025 Anion gap [Moles/Vol] 14 mmol/L Normal 6-16 [facility] Comment on above: Performed By: #### 2 [id number] #### [facility] [address] [place] [address] BUN/Creat Ratio 16 No Units Normal 10-20 [facility] Comment on above: Performed By: #### 2 [id number] #### [facility] [address] [place] [address] Calcium [Mass/Vol] 10.4 mg/dL Normal 8.9-11.1 [facility] Comment on above: Performed By: #### 2 556963 #### [facility] [address] [place] [address] Chloride [Moles/Vol] 105 mmol/L Normal 101-111 [facility] Comment on above: Performed By: #### 2 [id number] #### [facility] [address] [place] [address] CO2 [Moles/Vol] 21 mmol/L Normal 21-31 [facility] Comment on above: Performed By: #### 2 [id number] #### [facility] [address] [place] [address] Creatinine [Mass/Vol] 0.7 mg/dL Normal 0.5-1.3 [facility] Comment on above: Performed By: #### 2 050315 #### [facility] [address] [place] [address] Glucose [Mass/Vol] 109 mg/dL Normal 55-199 [facility] Comment on above: Performed By: #### 2 050019 #### [facility] [address] [place] [address] Potassium [Moles/Vol] 3.8 mmol/L Normal 3.5-5.3 [facility] Comment on above: Performed By: #### 2 [id number] #### [facility] [address] [place] [address] Sodium [Moles/Vol] 136 mmol/L Normal 135-145 [facility] Comment on above: Performed By: #### 2 [id number] #### [facility] [address] [place] [address] Urea nitrogen [Mass/Vol] 11 mg/dL Normal 5-21 [facility] Comment on above: Performed By: #### 2 [id number] #### [facility] [address] [place] [address] CBC w/ Auto Diffon 5 Basophil Absolute 0.0 E9/L Normal 0.0-0.2 [facility] Comment on above: Performed By: #### 2 [id number] #### [facility] [address] [place] [address] Basophils/100 WBC (Bld) 0.3 % Normal 0.0-2.0 [facility] Comment on above: Performed By: #### 2 [id number] #### [facility] [address] [place] [address] Eos Absolute 0.0 E9/L Normal 0.0-0.5 [facility] Comment on above: Performed By: #### 2 [id number] #### [facility] [address] [place] [address] Eosinophils/100 WBC (Bld) 0.2 % Normal 0.0-8.0 [facility] Comment on above: Performed By: #### 2 [id number] #### [facility] [address] [place] [address] Erythrocyte distribution width (RBC) [Ratio] 14.2 % Normal 10.9-14.2 [facility] Comment on above: Performed By: #### 2 [id number] #### [facility] [address] [place] [address] Hematocrit (Bld) [Volume fraction] 40.2 % Normal 34.0-46.0 [facility] Comment on above: Performed By: #### 2 512116 #### [facility] [address] [place] [address] Hemoglobin (Bld) [Mass/Vol] 13.6 g/dL Normal 12.0-16.0 [facility] Comment on above: Performed By: #### 2 436140 #### [facility] [address] [place] [address] Lymph Absolute 1.4 E9/L Normal 1.0-4.0 [facility] Comment on above: Performed By: #### 2 [id number] #### [facility] [address] [place] [address] Lymphocytes/100 WBC (Bld) 16.5 % Normal 14.0-50.0 [facility] Comment on above: Performed By: #### 2 [id number] #### [facility] [address] [place] [address] MCH (RBC) [Entitic mass] 32.6 pg Normal 27.0-34.0 [facility] Comment on above: Performed By: #### 2 [id number] #### [facility] [address] [place] [address] MCHC (RBC) [Mass/Vol] 33.8 g/dL Normal 31.4-36.0 [facility] Comment on above: Performed By: #### 2 369676 #### [facility] [address] [place] [address] MCV (RBC) [Entitic vol] 96.4 fL Normal 80.0-100.0 [facility] Comment on above: Performed By: #### 2 130418 #### [facility] [address] [place] [address] Barnes Absolute 0.5 E9/L Normal 0.2-1.0 [facility] Comment on above: Performed By: #### 2 901202 #### [facility] [address] [place] [address] Monocytes/100 WBC (Bld) 5.7 % Normal 4.0-14.0 [facility] Comment on above: Performed By: #### 2 [id number] #### [facility] [address] [place] [address] Neutro Absolute 6.5 E9/L Normal 2.0-7.5 [facility] Comment on above: Performed By: #### 2 850799 #### [facility] [address] [place] [address] Neutro Auto 77.3 % High 36.0-75.0 [facility] Comment on above: Performed By: #### 2 481390 #### [facility] [address] [place] [address] Platelet 350.0 E9/L Normal 150.0-500.0 [facility] Comment on above: Performed By: #### 2 451794 #### [facility] [address] [place] [address] Platelet mean volume (Bld) [Entitic vol] 9.3 fL Normal 6.4-10.8 [facility] Comment on above: Performed By: #### 2 619164 #### [facility] [address] [place] [address] RBC 4.2 E12/L Low 4.3-5.9 [facility] Comment on above: Performed By: #### 2 [id number] #### [facility] [address] [place] [address] WBC 8.4 E9/L Normal 4.0-11.0 [facility] Comment on above: Performed By: #### 2 [id number] #### [facility] [address] [place] [address] CHEMISTRYOrdered By: SYSTEM SYSTEM on 02-17-2025 Albumin [...] Sensitivity Troponin I Instructions For Use, Carter Bennington, April 2018) Urea nitrogen [Mass/Vol] 11 mg/dL Normal 5 - 21 mg/dL [facility] Urea nitrogen/Creatinine [Mass ratio] 16 mg/mg Normal 10 - 20 [facility] COAGULATIONOrdered By: Peng Kahn on 02-17-2025 aPTT Coag (PPP) [Time] 30.7 s Normal 25.1 - 36.5 second(s) [facility] Auto Coag Comment on above: Interpretive Data: [...] the same coagulation reagent and instrumentation as [facility]. Currently there are no coagulation studies available worldwide for children to 14 days, and no normal ranges. Heparin therapeutic range (represented by Anti-Factor Xa activity of 0.2 - 0.4 U/mL) corresponds to PTT of 56.6 - 109.0 sec. INR Coag (PPP) [Relative time] 0.88 {INR} Invalid Interpretation Code [facility]ag Comment on above: Interpretive Data: I NR results are specifically intended to assess patients stabilized on long-term Anticoagulation therapy suggested INR s Less Intensive Anticoagulation 2.0 3.0 Conventional Range 3.0 4.5 PT Coag (PPP) [Time] 9.8 s Normal 9.4 - 1 2.5 second(s) [facility] Auto Coag Comment on above: Interpretive Data: [...] the same coagulation reagent and instrumentation as [facility]. Currently there are no coagulation studies available worldwide for children to 14 days, and no normal ranges. ED Clinical Summaryon 2024 ED Clinical Summary ED Clinical Summary [place] [address] ED Clinical Summary Person Information Name: SHAZIA CHOU [facility] Age: 34 Years : 1990 Sex: Female Language: Sudanese PCP: Jennie Durand DO Marital Status: Phone: [phone] Visit Id: Visit Reason: Headache; Cough; Dizziness; [...] 02/17/2025 21:08:51 02/17/2025 21:08:51 02/17/2025 21:08:51 ADDRESS: [address] [place] [id number] PHYS DOC NOTES: MEDICAL INFORMATION: Prescriptions Given: New Medications [id number], [address], [place] [id number], [phone] brompheniramine/dextrom ethorphan/PSE (Bromfed DM oral syrup) 10 [...] Follow up: With: Address: When: Jennie Durand [address], Mic C, [facility] [address] [place] [address] Business (1) In 3 days 02/20/2025 DIAGNOSIS: Bronchitis; Cough; Dizziness; Vasovagal near syncope Normal [facility] ED Patient Summaryon 025 ED Patient Summary ED Patient Summary [address] [address] Patient Discharge Instructions Person Information Name: SHAZIA CHOU Age: 34 Years Arrival Date: 02/17/2025 18:53:55 Discharge Diagnosis: Bronchitis; Cough; Dizziness; Vasovagal near syncope Primary Care Physician: Jennie Durand DO Provider Information Primary Provider: Bakari Chester DO [employer] Manager:Ben Garber PA-C The exam and treatment you received in the Emergency Department were for an urgent problem and are not intended as complete care. It is important that you follow up with a doctor, nurse practitioner, or physician???s senior executive assistant for ongoing care. If your symptoms [...] Follow-up Instructions: With: Address: When: Jennie Durand [facility] [place] [address] , [address] [address] Business (1) In 3 days 02/20/2025 In the event that this physician does not participate in your insurance network, please consult with your insurance company to find a nearby participating provider. Patient Education Materials: Near-Syncope; Acute Bronchitis, Adult A MESSAGE TO ALL PATIENTS REGARDING OPIOIDS PRESCRIPTION OPIOIDS: WHAT YOU NEED TO KNOW Prescription opioids can be used to help relieve ztaiufks-ti-lodbol pain and are often prescribed following a [...] from the Food and Drug Administration (www.fda.gov/Drugs/Reso Onel). ??? Visit www.cdc.gov/drugoverdos e to learn about the risks of opioids abuse and overdose. ??? If you believe you may be struggli (more content not included)... Normal [facility] HEMATOLOGYOrdered By: SYSTEM SYSTEM on 02-17-2025 [...] 02-17-2025 Albumin [Mass/Vol] 4.5 g/dL Normal 3.3-5.0 [facility] Comment on above: Performed By: #### 2 [id number] #### [facility] [address] [place] [address] Albumin/Globulin [Mass ratio] 1.5 {ratio} Normal 1.1-2.2 [facility] Comment on above: Performed By: #### 2 505857 #### [facility] [address] [place] [address] Alk Phos 55 Int._Unit/L Normal 21-98 [facility] Comment on above: Performed By: #### 2 [id number] #### [facility] [address] [place] [address] ALT 12 Int._Unit/L Normal 6-46 [facility] Comment on above: Performed By: #### 2 363319 #### [facility] [address] [place] [address] AST 17 Int._Unit/L Normal 5-43 [facility] Comment on above: Performed By: #### 2 661753 #### [facility] [address] [place] [address] Bili Direct 0.1 mg/dL Normal 0.0-0.4 [facility] Comment on above: Performed By: #### 2 439058 #### [facility] [address] [place] [address] Bili Indirect 0.3 mg/dL Normal 0.1-0.9 [facility] Comment on above: Performed By: #### 2 352813 #### [facility] [address] [place] [address] Bili Total 0.4 mg/dL Normal 0.0-1.1 [facility] Comment on above: Performed By: #### 2 243156 #### [facility] [address] [place] [address] Globulin (S) [Mass/Vol] 3.0 g/dL Normal 1.4-4.0 [facility] Comment on above: Performed By: #### 2 206257 #### [facility] [address] [place] [address] Protein [Mass/Vol] 7.5 g/dL Normal 6.0-7.8 [facility] Comment on above: Performed By: #### 2 218292 #### [facility] [address] [place] [address] Magnesiumon 02-17-2025 Magnesium [Mass/Vol] 1.8 mg/dL Normal 1.3-2.4 [facility] Comment on above: Performed By: #### 2 715132 #### [facility] [address] [place] [address] PT & PTTon 02-17-2025 INR Coag (PPP) [Relative time] 0.88 {INR} Invalid Interpretation Code [facility] Comment on above: Result Comment: INR results are specifically intended to assess patients stabilized on long-term Anticoagulation therapy suggested INR???s ???Less Intensive Anticoagulation??? 2.0 ??? 3.0 Conventional Range 3.0 ??? 4.5 Performed By: #### 1 [id number] #### [facility] [address] [place] [address] PT 9.8 second(s) Normal 9.4-12.5 [facility] Comment on above: Result Comment: 15 d ays - 4 weeks 1 - 5 months 6 -11 months 1- 5 years 6-10 years 11 -17 years Mean: 11.2 (9.5-12.6) Mean: 11.0 (9.7-12.8) Mean: 11.0 (9.8-13.0) Mean: 11.3 (9.9-13.4) Mean: 11.7 (10.0-14.6) Mean: 11.8 (10.0 - 14.1) Pediatric Reference ranges were obtained from a study by ton Snyder. prepared from 1437 samples obtained at 7 different centers using the same coagulation reagent and instrumentation as [facility]. Currently there are no coagulation studies available worldwide for children to 14 days, and no normal ranges. Performed By: #### 1 [id number] #### [facility] [address] [place] [address] PTT 30.7 second(s) Normal 25.1-36.5 [facility] Comment on above: Result Comment: Para [...] the same coagulation reagent and instrumentation as [facility]. Currently there are no coagulation studies available worldwide for children to 14 days, and no normal ranges. Heparin therapeutic range (represented by Anti-Factor Xa activity of 0.2 - 0.4 U/mL) corresponds to PTT of 56.6 - 109.0 sec. Performed By: #### 1 [id number] #### [facility] [address] [place] [address] Pre-Arrival Noteon Pre-Arrival Note Pre-Arrival Note Pre-Arrival Summary Name: EDUARDA Current Date: 02/17/2025 18:54:29 EDT Gender: Female Date of : Age: 34 Pre-Arrival Type: EMS ETA: 02/17/2025 19:10:00 EDT Primary Care Physician: Presenting Problem: dizziness Pre-Arrival User: Tania RNLibby Referring Source: Location: [place] Completion Date/Time: 02/17/2025 18:40:00 [facility] Emergency Department Pre-Hospital Report Form Vital Signs: Pre-Hospital Report: Treatment in Route: Response to Treatment: Misc. Issues: Normal [facility] Troponin 0 Hr.on 02-17-2025 Troponin HS <2.30 Low 10.10-27.10 [facility] Comment on above: Result Comment: The 95% CI (Confidence Interval) PPV (Positive Predictive Value) for myocardial infarction in females is 38 pg/mL, in males 51 pg/mL. The results should be used in conjunction with clinical conditions of myocardial infarction. (Access High Sensitivity Troponin I Instructions For Use, Carter Christopher, April 2018) Performed By: #### 1 [id number] #### [facility] [address] [place] [address] UA with Cult Rflxon 02-18-20 25 Color (U) Light-Yellow Normal Yellow [facility] Comment on above: Result Comment: Micr oscopic readings are only performed on those samples that meet specific criteria set forth by [facility]. Performed By: #### 4 [id number] #### [facility] [address] [place] [address] Glucose (U) [Mass/Vol] Negative Normal Negative Fi [facility] Comment on above: Performed By: #### 4 [id number] #### [facility] [address] [place] [address] Ketones Ql (U) Negative Normal Negative [facility] Comment on above: Performed By: #### 4 [id number] #### [facility] [address] [place] [address] UA Blood Negative Normal Negative [facility] Comment on above: Performed By: #### 4 [id number] #### [facility] [address] [place] [address] UA Bacteria Trace Normal Trace [facility] Comment on above: Performed By: #### 4 [id number] #### [facility] [address] [place] [address] UA Clarity Clear Normal Clear [facility] Comment on above: Performed By: #### 4 [id number] #### [facility] [address] [place] [address] UA Leuk Est 25 Keven/uL Normal Negative [facility] Comment on above: Performed By: #### 4 [id number] #### [facility] [address] [place] [address] UA Mucous Negative Normal Negative [facility] Comment on above: Performed By: #### 4 [id number] #### [facility] [address] [place] [address] UA Nitrite Negative Normal Negative [facility] Comment on above: Performed By: #### 4 [id number] #### [facility] [address] [place] [address] UA pH 7.5 Invalid Interpretation Code 5.0-9.0 [facility] Comment on above: Performed By: #### 4 [id number] #### [facility] [address] [place] [address] UA Protein Negative Normal Negative [facility] Comment on above: Performed By: #### 4 [id number] #### [facility] [address] [place] [address] UA RBC 0-3 Normal 0-3 [facility] Comment on above: Performed By: #### 4 [id number] #### [facility] [address] [place] [address] UA Spec Grav 1.006 Invalid Interpretation Code 1.005-1.030 [facility] Comment on above: Performed By: #### 4 [id number] #### [facility] [address] [place] [address] UA Squam Epithelial 3-4 Invalid Interpretation Code [facility] Comment on above: Performed By: #### 4 [id number] #### [facility] [address] [place] [address] UA Transitional Epithelial 0-2 Normal 0-2 [facility] Comment on above: Performed By: #### 4 [id number] #### [facility] [address] [place] [address] UA Urobilinogen Negative Normal Negative [facility] Comment on above: Performed By: #### 4 [id number] #### [facility] [address] [place] [address] UA WBC 0-5 Normal 0-5 [facility] Comment on above: Performed By: #### 4 [id number] #### [facility] [address] [place] [address] Urobilinogen (U) [Mass/Vol] Negative Normal Negative [facility] Comment on above: Performed By: #### 4 [id number] #### [facility] [address] [place] [address] UA Spec Desc Clean Catch Normal [facility] Comment on above: Performed By: #### 4 [id number] #### [facility] [address] [place] [address] URINALYSISOrdered By: SYSTEM SYSTEM on 02-17-2025 Bacteria [...] that meet specific criteria set forth by [facility]. Epithelial cells.squamous Auto (Urine sed) [...] Desc Clean Catch (02/17/25 7:24 PM) Normal [facility] UA Auto SS eGFRon 02-17-2025 eGFR 115 mL/min/1.73 m2 Normal >=59 [facility] Comment on above: Performed By: #### 1 [id number] #### [facility] [address] [place] [address] Heart and Vascular Office/Cl in Noteon 02-16-2025 Heart and Vascular Office/Clinic Note [...] beat which represents less than 0.01%. 7. AL interval 0.15 second, QRS 0.10 second, QT [...] Foot, Gastric (more content not included)... Normal [facility] Comment on [...] MD Transcribed by: MARCO Technologist: MELYSSA Normal [facility] Holter Monitoron 02-13-2025 Holter Monitor Holter [...] beat which represents less than 0.01%. 7. AL interval 0.15 second, QRS 0.10 second, QT 0.40 second at heart rate of 64 beats per minute. READ BY: terrell Hernandez Dictated: 02/10/2025 [id number] Transcribed: 02/13/2025 Normal [facility] Comment on above: Result Comment: Elec tronically Signed By: Jeremiah BHAKTA, Fernandez\.br\Date and Time Signed: 02/13/25 18:05 EDT Main OR Intraoperative Recor don 01-24-2025 Main OR Intraoperative Record Main OR Intraoperative Record IntraOp Document Type [facility] Summary Primary Physician: Babar Mayers DO Finalized Date/Time: 01/24/25 09:58:05 Pt. Name: SHAZIA CHOU/Sex: 1990 Female Med Rec #: [id number] Physician: Babar Mayers DO Financial #: [id number] Pt. Type: P Room/Bed: / Admit/Disch: 01/24/25 [...] Corby Blue Role Performed Surgeon - Primary Cloth Covered Helmet Puller - Primary Scrub - Primary Time In 01/24/25 09:48:00 01/24/25 09:48:00 01/24/25 09:48:00 Time Out 01/24/25 09:58:00 01/24/25 09:58:00 01/24/25 09:58:00 Procedure MEDIAL BRANCH MEDIAL BRANCH MEDIAL BRANCH BLOCK(Bilateral) BLOCK(Bilateral) BLOCK(Bilateral) Comments Last Modified By: Nolvia Rodas RN, RN, Madison A Pritchard RN, Madison A 01/24/25 09:57:49 01/24/25 09:57:49 01/24/25 09:57:49 Entry 4 Case Attendee Jennie Hurtado Role Performed Crawler Dragline Operator Time In 01/24/25 09:48:00 Time Out 01/24/25 [...] Harvey RN, Talib Lynch DO, Bradford A., Ott, Amy Time Out Complete 01/24/25 09:51:00 [...] and tissue Entry 1 Skin Integrity Intact, [place], Warm, & Skin Abnormality No Dry Outcomes [...] Knees Press Points Checked Yes By Clark LARA, Vu (more content not included)... Normal [facility] Main OR Preoperative Recordo n 01-24-2025 Main OR Preoperative Record Main OR Preoperative Record Holding Area Document Type [facility] Summary Primary Physician: Babar Mayers DO Finalized Date/Time: 01/24/25 08:43:59 Pt. Name: SHAZIA CHOU/Sex: 1990 Female Med Rec #: [id number] Physician: Babar Mayers DO Financial #: [id number] Pt. Type: P Room/Bed: / Admit/Disch: 01/24/25 [...] By: Gabrielle Sultana RN 01/24/25 08:43 Normal [facility] MR head/brain wo/w conon MR head/brain wo/w con [facility] [place] [address] MRI Report Signed Patient: Shazia Chou MR#: [id number] : 1990 Acct:[id number] Age/Sex: 33 / F ADM Date: 12/16/24 Loc: MR Room: Type: [facility] Attending Dr: Corby Larsen DO Copies [...] Denny Escalante M.D.12/16/2024 2:50 PM Dictation Location: [place] [address] Transcribed By: [facility] 12/16/24 1450 Dictated By: Denny Escalante MD 12/16/24 1404 Signed By: 12/16/24 1450 Normal [facility] Magnetic resonance imaging r eportOrdered By: Denny Escalante on 12-16-2024 Study report [facility] [place] [address] MRI Report Signed Patient: Shazia Chou MR#: [id number] : 1990 Acct:[id number] Age/Sex: 33 / F ADM Date: 5 Loc: MR Room: Type: [facility] Attending Dr: Corby Larsen DO Copies [...] Denny Escalante M.D.12/16/2024 2:50 PM Dictation Location: [place] [address] Transcribed By: [facility] 12/16/24 2286 Dictated By: Denny Escalante MD 12/16/24 1404 Signed By: 12/16/24 6170 [facility] Work Phone: XR Spine Lumbar Complete [...] MD Transcribed by: MARCO Technologist: CHAN Walters [facility] 24 hour urine albumin/total protein ratio by electrophoresisOrdered By: Jacob Baker on 12-12-2024 Albumin Elph (24H U) [Mass fraction] Albumin/Protein.total in 24 hour Urine by Electrophoresis . [facility] 24 hour urine gamma globulin /total protein ratio by electrophoresisOrdered By: Jacobparmjit Baker on 12-12-2024 Gamma globulin Elph (24H U) [Mass fraction] Gamma globulin/Protein.total in 24 hour Urine by Electrophoresis . [facility] 24 hour urine protein monocl onal/total protein by electrophoresisOrdered By: Jacob Baker on 12-12-2024 Protein.monoclonal Elph (24H U) [Mass fraction] Protein.monoclonal/Prot ein.total in 24 hour Urine by Electrophoresis Not Observed [facility] CYNDI Antinuclear Antibodieson 12-12-2024 Antinuclear Abs, IFA Negative Normal . [facility] Comment on above: Result Comment: Nega tive <1:80 Borderline 1:80 Positive >1:80 ICAP nomenclature: AC-0 For more information about Hep-2 cell patterns use [employer], the official website for the International Consensus on Antinuclear Antibody (CYNDI) Patterns (ICAP). Performed at: [facility] [address] [id number] Medical Office Receptionist Assistant: Santy Storey PhD, Phone: [phone] PERFORMED BY: [place] [address] PATHOLOGIST MACHINE GUN MECHANIC CARLOS KNAPP M.D. Performed By: #### A NA #### [facility] , Result Comment: Nega tive <1:80 Borderline 1:80 Positive >1:80 ICAP nomenclature: AC-0 For more information about Hep-2 cell patterns use [employer], the official website for the International Consensus on Antinuclear Antibody (CYNDI) Patterns (ICAP). Performed at: [facility] [address] [id number] Medical Office Receptionist Assistant: Santy Storey PhD, Phone: [phone] Performed By: #### A DNA, SJOGRENS, HELM, C3, HISAB, CCP, CHROMATIN, CENTROME, RA, CYNDI, FQG49AY, JO1, B2 GLYPROT, ANTIR, CARDIO GMA, C4, CH50 #### [facility] , Alanine aminotransferase [En zymatic activity/volume] in Serum or PlasmaOrdered By: Jacob Baker on 12-12-2024 ALT [Catalytic activity/Vol] Alanine aminotransferase [Enzymatic activity/volume] in Serum or Plasma 7-52 [facility] Albumin [Mass/volume] in Ser um or Plasma by Bromocresol green (BCG) dye binding methoOrdered By: Jacob Baker on 12-12-2024 Albumin BCG dye [Mass/Vol] Albumin [Mass/volume] in Serum or Plasma by Bromocresol green (BCG) dye binding metho 3.5-5.7 [facility] Alkaline phosphatase [Enzyma tic activity/volume] in Serum or PlasmaOrdered By: Jacob Baker on 12-12-2024 ALP [Catalytic activity/Vol] Alkaline phosphatase [Enzymatic activity/volume] in Serum or Plasma 34-104 [facility] Anti-Centromere B Antibodies on 12-12-2024 Anti-Centromere B Antibodies <0.2 Normal 0.0-0.9 [facility] Comment on above: Result Comment: Perf ormed at: CB - [facility] [place] [id number] Medical Office Receptionist Assistant: Santy Storey PhD, Phone: [phone] Performed By: #### A DNA, SJOGRENS, HELM, C3, HISAB, CCP, CHROMATIN, CENTROME, RA, CYNDI, [id number], JO1, B2 GLYPROT, ANTIR, CARDIO GMA, C4, CH50 #### [facility] , Anti-RNPon 12-12-2024 Anti-CERTIFIED RESIDENTIAL MEDICATION AIDE <0.2 Normal 0.0-0.9 [facility] Comment on above: Performed By: #### A DNA, SJOGRENS, HELM, C3, HISAB, CCP, CHROMATIN, CENTROME, RA, CYNDI, [id number], JO1, B2 GLYPROT, ANTIR, CARDIO GMA, C4, CH50 #### [facility] , Anti-Helm Antibodieson 11-14 Anti-Helm Antibodies <0.2 Normal 0.0-0.9 [facility] Comment on above: Performed By: #### A DNA, SJOGRENS, HELM, C3, HISAB, CCP, CHROMATIN, CENTROME, RA, CYNDI, [id number], JO1, B2 GLYPROT, ANTIR, CARDIO GMA, C4, CH50 #### [facility] , Anti-dsDNA(DBL)Abon 12-13-19 25 Anti-dsDNA(DBL)Ab 1 [IU]/mL Normal 0-9 [facility] Comment on above: Result Comment: Nega tive <5 Equivocal 5 - 9 Positive >9 Performed By: #### A DNA, SJOGRENS, HELM, C3, HISAB, CCP, CHROMATIN, CENTROME, RA, CYNDI, [id number], JO1, B2 GLYPROT, ANTIR, CARDIO GMA, C4, CH50 #### [facility] , Anticardiolipin IgG/M/A, Qno n 12-12-2024 Anticardiolipin Ab, IgA,Qn <9 Normal 0-11 [facility] Comment on above: Result Comment: Nega tive: <12 Indeterminate: 12 - 20 Low-Med Positive: >20 - 80 High Positive: >80 Performed By: #### A DNA, SJOGRENS, HELM, C3, HISAB, CCP, CHROMATIN, CENTROME, RA, CYNDI, [id number], JO1, B2 GLYPROT, ANTIR, CARDIO GMA, C4, CH50 #### [facility] , Anticardiolipin Ab, IgG,Qn <9 Normal 0-14 [facility] Comment on above: Result Comment: Nega tive: <15 Indeterminate: 15 - 20 Low-Med Positive: >20 - 80 High Positive: >80 Performed By: #### A DNA, SJOGRENS, HELM, C3, HISAB, CCP, CHROMATIN, CENTROME, RA, CYNDI, [id number], JO1, B2 GLYPROT, ANTIR, CARDIO GMA, C4, CH50 #### [facility] , Anticardiolipin Ab, IgM,Qn <9 Normal 0-12 [facility] Comment on above: Result Comment: Nega tive: <13 Indeterminate: 13 - 20 Low-Med Positive: >20 - 80 High Positive: >80 Performed By: #### A DNA, SJOGRENS, HELM, C3, HISAB, CCP, CHROMATIN, CENTROME, RA, CYNDI, [id number], JO1, B2 GLYPROT, ANTIR, CARDIO GMA, C4, CH50 #### [facility] , Appearance of UrineOrdered B y: Jacob Baker on 12-12-2024 Appearance (U) Urine appearance [facility] Aspartate aminotransferase [ Enzymatic activity/volume] in Serum or PlasmaOrdered By: Jacob Baker on 12-12-2024 AST [Catalytic activity/Vol] Aspartate aminotransferase [Enzymatic activity/volume] in Serum or Plasma 13-39 [facility] Bacteria [Presence] in Urine by AutomatedOrdered By: Jacob Chaneyrow on 12-12-2024 Bacteria Auto Ql (U) Bacteria [Presence] in Urine by Automated None Seen [facility] Basophils Auto (Bld) [#/Vol] Ordered By: Jacob Olivia on 12-12-2024 Basophils (Bld) [#/Vol] Automated basophil count 0.0-0.2 [facility] Basophils/100 WBC Auto (Bld) Ordered By: Jacob Olivia on 12-12-2024 Basophils/100 WBC (Bld) Automated basophil % . [facility] Beta 2 Glycoprotein I Ab IgG /Mon 12-12-2024 Beta 2 Glycoprotein I Ab, IgG <9 Normal 0-20 [facility] Comment on above: Result [...] C3, HISAB, CCP, CHROMATIN, CENTROME, RA, CYNDI, [id number], JO1, B2 GLYPROT, ANTIR, CARDIO GMA, C4, CH50 #### [facility] , Beta 2 Glycoprotein I Ab, IgM <9 Normal 0-32 [facility] Comment on above: Result Comment: Resu lt Units: GPI IgM units The reference interval reflects a 3SD or 99th percentile interval, which is thought to represent a potentially clinically significant result in accordance with the International Consensus Statement on the classification criteria for definitive antiphospholipid syndrome (APS). J Thromb Haem 2006;4:295-306. Performed at: - [facility] [address] [id number] Medical Office Receptionist Assistant: Santy Storey PhD, Phone: [phone] Performed By: #### A DNA, SJOGRENS, HELM, C3, HISAB, CCP, CHROMATIN, CENTROME, RA, CYNDI, [id number], JO1, B2 GLYPROT, ANTIR, CARDIO GMA, C4, CH50 #### [facility] , Beta 2 glycoprotein 1 IgG Ab [Units/volume] in SerumOrdered By: Jacob Baker on 12-12-2024 Beta 2 glycoprotein 1 IgG Qn (S) Beta 2 glycoprotein 1 IgG Ab [Units/volume] in Serum 0-20 [facility] Comment on above: Result Units: GPI [...] [Presence] in Urine by Test strip Negative [facility] Bilirubin.total [Mass/volume ] in Serum or PlasmaOrdered By: Jacob Baker on 12-12-2024 Bilirubin [Mass/Vol] Bilirubin.total [Mass/volume] in Serum or Plasma 0.3-1.0 [facility] C reactive protein [Mass/vol ume] in Serum or PlasmaOrdered By: Jacob Baker on 12-12-2024 CRP [Mass/Vol] C reactive protein [Mass/volume] in Serum or Plasma 0.0-0.5 [facility] C-Reactive Proteinon 025 CRP [Mass/Vol] mg/L Normal 0.0-0.5 [facility] Comment on above: Performed By: #### A DNA, SJOGRENS, HELM, C3, HISAB, CCP, CHROMATIN, CENTROME, RA, CYNDI, [id number], JO1, B2 GLYPROT, ANTIR, CARDIO GMA, C4, CH50 #### [facility] , Calcium [Mass/volume] in Ser um or PlasmaOrdered By: Jacob Baker on 12-12-2024 Calcium [Mass/Vol] Calcium [Mass/volume ] in Serum or Plasma 8.6-10.3 [facility] Carbon dioxide, total [Moles /volume] in Serum or PlasmaOrdered By: Jacob Baker on 12-12-2024 CO2 [Moles/Vol] Carbon dioxide, tota l [Moles/volume] in Serum or Plasma 21.0-31.0 [facility] Chloride [Moles/volume] in S tushar or PlasmaOrdered By: Jacob Baker on 12-12-2024 Chloride [Moles/Vol] Chloride [Moles/vol ume] in Serum or Plasma 98-107 [facility] Chromatin Antibodyon 025 Chromatin Antibody <0.2 Normal 0.0-0.9 [facility] Comment on above: Result Comment: PERF ORMED BY: [facility] [address] [place] [address] PATHOLOGIST MACHINE GUN MECHANIC CARLOS KNAPP M.D. Performed By: #### A DNA, SJOGRENS, HELM, C3, HISAB, CCP, CHROMATIN, CENTROME, RA, CYNDI, [id number], JO1, B2 GLYPROT, ANTIR, CARDIO GMA, C4, CH50 #### [facility] , Coagulation Profileon 2024 aPTT Coag (Bld) [Time] 29.5 s Normal 25.1-36.5 [facility] Comment on above: Result Comment: A he matocrit value greater than 55% may lead to inaccurate results in coagulation testing. Patients having hematocrit values >55% require a special collection tube for coagulation studies. Please contact the laboratory at [phone] for redraw instructions. PERFORMED BY: [facility] [address] [place] [address] PATHOLOGIST MACHINE GUN MECHANIC CARLOS KNAPP M.D. Performed By: #### A DNA, SJOGRENS, HELM, C3, HISAB, CCP, CHROMATIN, CENTROME, RA, CYNDI, [id number], JO1, B2 GLYPROT, ANTIR, CARDIO GMA, C4, CH50 #### [facility] , INR Coag (PPP) [Relative time] 0.8 {INR} Normal [facility] Comment on above: Result [...] valves: 3 - 4.5 Performed By: #### A DNA, SJOGRENS, HELM, C3, HISAB, CCP, CHROMATIN, CENTROME, RA, CYNDI, [id number], JO1, B2 GLYPROT, ANTIR, CARDIO GMA, C4, CH50 #### [facility] , PT Coag (PPP) [Time] 9.6 s Normal 9.0-12.9 [facility] Comment on above: Result Comment: A he matocrit value greater than 55% may lead to inaccurate results in coagulation testing. Patients having hematocrit values >55% require a special collection tube for coagulation studies. Please contact the laboratory at [phone] for redraw instructions. Performed By: #### A DNA, SJOGRENS, HELM, C3, HISAB, CCP, CHROMATIN, CENTROME, RA, CYNDI, [id number], JO1, B2 GLYPROT, ANTIR, CARDIO GMA, C4, CH50 #### [facility] , Color Auto (U)Ordered By: Stephany Baker on 12-12-2024 Color (U) Color of Urine by Auto Yellow [facility] Complement C3on 12-12-2024 Complement C3 133 mg/dL Normal 82-167 [facility] Comment on above: Performed By: #### A DNA, SJOGRENS, HELM, C3, HISAB, CCP, CHROMATIN, CENTROME, RA, CYNDI, [id number], JO1, B2 GLYPROT, ANTIR, CARDIO GMA, C4, CH50 #### [facility] , Complement C4on 12-12-2024 Complement C4 23 mg/dL Normal 12-38 [facility] Comment on above: Performed By: #### A DNA, SJOGRENS, HELM, C3, HISAB, CCP, CHROMATIN, CENTROME, RA, CYNDI, [id number], JO1, B2 GLYPROT, ANTIR, CARDIO GMA, C4, CH50 #### [facility] , Complement Total (CH50)on Complement Total (CH50) >60 Normal >41 [facility] Comment on above: Result [...] out of range values. Performed at: - [facility] [id number] Medical Office Receptionist Assistant: Santy Storey PhD, Phone: [phone] PERFORMED BY: [address] [address] PATHOLOGIST MACHINE GUN MECHANIC CARLOS KNAPP M.D. Performed By: #### A DNA, SJOGRENS, HELM, C3, HISAB, CCP, CHROMATIN, CENTROME, RA, CYNDI, [id number], JO1, B2 GLYPROT, ANTIR, CARDIO GMA, C4, CH50 #### [facility] , Complete Blood Count Auto Di ffon 12-12-2024 Basophils (Bld) [#/Vol] 0.1 10*3/uL Normal 0.0-0.2 [facility] Comment on above: Performed By: #### A DNA, SJOGRENS, HELM, C3, HISAB, CCP, CHROMATIN, CENTROME, RA, CYNDI, [id number], JO1, B2 GLYPROT, ANTIR, CARDIO GMA, C4, CH50 #### [facility] , Basophils/100 WBC (Bld) 0.8 % Normal . [facility] Comment on above: Performed By: #### A DNA, SJOGRENS, HELM, C3, HISAB, CCP, CHROMATIN, CENTROME, RA, CYNDI, [id number], JO1, B2 GLYPROT, ANTIR, CARDIO GMA, C4, CH50 #### [facility] , Eosinophils (Bld) [#/Vol] 0.2 10*3/uL Normal 0.0-0.45 [facility] Comment on above: Performed By: #### A DNA, SJOGRENS, HELM, C3, HISAB, CCP, CHROMATIN, CENTROME, RA, CYNDI, [id number], JO1, B2 GLYPROT, ANTIR, CARDIO GMA, C4, CH50 #### [facility] , Eosinophils/100 WBC (Bld) 2.0 % Normal . [facility] Comment on above: Performed By: #### A DNA, SJOGRENS, HELM, C3, HISAB, CCP, CHROMATIN, CENTROME, RA, CYNDI, [id number], JO1, B2 GLYPROT, ANTIR, CARDIO GMA, C4, CH50 #### [facility] , Erythrocyte distribution width (RBC) [Ratio] 15.3 % Normal 11.9-15.3 [facility] Comment on above: Performed By: #### A DNA, SJOGRENS, HELM, C3, HISAB, CCP, CHROMATIN, CENTROME, RA, CYNDI, [id number], JO1, B2 GLYPROT, ANTIR, CARDIO GMA, C4, CH50 #### [facility] , Hematocrit (Bld) [Volume fraction] 40.4 % Normal 34.0-46.4 [facility] Comment on above: Performed By: #### A DNA, SJOGRENS, HELM, C3, HISAB, CCP, CHROMATIN, CENTROME, RA, CYNDI, [id number], JO1, B2 GLYPROT, ANTIR, CARDIO GMA, C4, CH50 #### [facility] , Hemoglobin (Bld) [Mass/Vol] 13.6 g/dL Normal 11.8-15.4 [facility] Comment on above: Performed By: #### A DNA, SJOGRENS, HELM, C3, HISAB, CCP, CHROMATIN, CENTROME, RA, CYNDI, [id number], JO1, B2 GLYPROT, ANTIR, CARDIO GMA, C4, CH50 #### [facility] , Lymphocytes (Bld) [#/Vol] 1.8 10*3/uL Normal 1.00-4.8 [facility] Comment on above: Performed By: #### A DNA, SJOGRENS, HELM, C3, HISAB, CCP, CHROMATIN, CENTROME, RA, CYNDI, [id number], JO1, B2 GLYPROT, ANTIR, CARDIO GMA, C4, CH50 #### [facility] , Lymphocytes/100 WBC (Bld) 18.1 % Normal . [facility] Comment on above: Performed By: #### A DNA, SJOGRENS, HELM, C3, HISAB, CCP, CHROMATIN, CENTROME, RA, CYNDI, [id number], JO1, B2 GLYPROT, ANTIR, CARDIO GMA, C4, CH50 #### [facility] , MCH (RBC) [Entitic mass] 33.1 pg Normal 24.7-34.3 [facility] Comment on above: Performed By: #### A DNA, SJOGRENS, HELM, C3, HISAB, CCP, CHROMATIN, CENTROME, RA, CYNDI, [id number], JO1, B2 GLYPROT, ANTIR, CARDIO GMA, C4, CH50 #### [facility] , MCV (RBC) [Entitic vol] 98.2 fL Normal 80-100 [facility] Comment on above: Performed By: #### A DNA, SJOGRENS, HELM, C3, HISAB, CCP, CHROMATIN, CENTROME, RA, CYNDI, [id number], JO1, B2 GLYPROT, ANTIR, CARDIO GMA, C4, CH50 #### [facility] , Mean Corpuscular HGB Conc 33.7 g/dL Normal 32.0-35.0 [facility] Comment on above: Performed By: #### A DNA, SJOGRENS, HELM, C3, HISAB, CCP, CHROMATIN, CENTROME, RA, CYNDI, [id number], JO1, B2 GLYPROT, ANTIR, CARDIO GMA, C4, CH50 #### [facility] , Monocytes (Bld) [#/Vol] 0.7 10*3/uL Normal 0.0-0.8 [facility] Comment on above: Performed By: #### A DNA, SJOGRENS, HELM, C3, HISAB, CCP, CHROMATIN, CENTROME, RA, CYNDI, [id number], JO1, B2 GLYPROT, ANTIR, CARDIO GMA, C4, CH50 #### [facility] , Monocytes/100 WBC (Bld) 6.8 % Normal . [facility] Comment on above: Performed By: #### A DNA, SJOGRENS, HELM, C3, HISAB, CCP, CHROMATIN, CENTROME, RA, CYNDI, [id number], JO1, B2 GLYPROT, ANTIR, CARDIO GMA, C4, CH50 #### [facility] , Neutrophils (Bld) [#/Vol] 7.1 10*3/uL Normal 1.8-7.7 [facility] Comment on above: Performed By: #### A DNA, SJOGRENS, HELM, C3, HISAB, CCP, CHROMATIN, CENTROME, RA, CYNDI, [id number], JO1, B2 GLYPROT, ANTIR, CARDIO GMA, C4, CH50 #### [facility] , Neutrophils/100 WBC (Bld) 72.3 % Normal . [facility] Comment on above: Performed By: #### A DNA, SJOGRENS, HELM, C3, HISAB, CCP, CHROMATIN, CENTROME, RA, CYNDI, [id number], JO1, B2 GLYPROT, ANTIR, CARDIO GMA, C4, CH50 #### [facility] , NRBC% 0.0 /100{WBC} Normal 0-0.5 [facility] Comment on above: Performed By: #### A DNA, SJOGRENS, HELM, C3, HISAB, CCP, CHROMATIN, CENTROME, RA, CYNDI, [id number], JO1, B2 GLYPROT, ANTIR, CARDIO GMA, C4, CH50 #### [facility] , Platelet mean volume (Bld) [Entitic vol] 9.6 fL Normal 6.3-10.7 [facility] Comment on above: Performed By: #### A DNA, SJOGRENS, HELM, C3, HISAB, CCP, CHROMATIN, CENTROME, RA, CYNDI, [id number], JO1, B2 GLYPROT, ANTIR, CARDIO GMA, C4, CH50 #### [facility] , Platelets (Bld) [#/Vol] 297 10*3/uL Normal 150-450 [facility] Comment on above: Performed By: #### A DNA, SJOGRENS, HELM, C3, HISAB, CCP, CHROMATIN, CENTROME, RA, CYNDI, [id number], JO1, B2 GLYPROT, ANTIR, CARDIO GMA, C4, CH50 #### [facility] , RBC (Bld) [#/Vol] 4.11 10*6/uL Normal 3.60-5.00 [facility] Comment on above: Performed By: #### A DNA, SJOGRENS, HELM, C3, HISAB, CCP, CHROMATIN, CENTROME, RA, CYNDI, [id number], JO1, B2 GLYPROT, ANTIR, CARDIO GMA, C4, CH50 #### [facility] , WBC (Bld) [#/Vol] 9.8 10*3/uL Normal 3.8-11.6 [facility] Comment on above: Performed By: #### A DNA, SJOGRENS, HELM, C3, HISAB, CCP, CHROMATIN, CENTROME, RA, CYNDI, [id number], JO1, B2 GLYPROT, ANTIR, CARDIO GMA, C4, CH50 #### [facility] , Comprehensive Metabolic Pane jak 12-12-2024 Albumin [Mass/Vol] 4.7 g/dL Normal 3.5-5.7 [facility] Comment on above: Performed By: #### A DNA, SJOGRENS, HEML, C3, HISAB, CCP, CHROMATIN, CENTROME, RA, CYNDI, [id number], JO1, B2 GLYPROT, ANTIR, CARDIO GMA, C4, CH50 #### [facility] , Albumin/Globulin [Mass ratio] 1.7 {ratio} Normal [facility] Comment on above: Performed By: #### A DNA, SJOGRENS, HELM, C3, HISAB, CCP, CHROMATIN, CENTROME, RA, CYNDI, [id number], JO1, B2 GLYPROT, ANTIR, CARDIO GMA, C4, CH50 #### [facility] , ALP [Catalytic activity/Vol] 69 U/L Normal 34-104 [facility] Comment on above: Performed By: #### A DNA, SJOGRENS, HELM, C3, HISAB, CCP, CHROMATIN, CENTROME, RA, CYNDI, [id number], JO1, B2 GLYPROT, ANTIR, CARDIO GMA, C4, CH50 #### [facility] , ALT [Catalytic activity/Vol] 20 U/L Normal 7-52 [facility] Comment on above: Performed By: #### A DNA, SJOGRENS, HELM, C3, HISAB, CCP, CHROMATIN, CENTROME, RA, CYNDI, [id number], JO1, B2 GLYPROT, ANTIR, CARDIO GMA, C4, CH50 #### [facility] , Anion gap [Moles/Vol] 13.5 mmol/L Normal 6.0-15.0 [facility] Comment on above: Performed By: #### A DNA, SJOGRENS, HELM, C3, HISAB, CCP, CHROMATIN, CENTROME, RA, CYNDI, [id number], JO1, B2 GLYPROT, ANTIR, CARDIO GMA, C4, CH50 #### [facility] , AST [Catalytic activity/Vol] 23 U/L Normal 13-39 [facility] Comment on above: Performed By: #### A DNA, SJOGRENS, HELM, C3, HISAB, CCP, CHROMATIN, CENTROME, RA, CYNDI, [id number], JO1, B2 GLYPROT, ANTIR, CARDIO GMA, C4, CH50 #### [facility] , Bilirubin [Mass/Vol] 0.3 mg/dL Normal 0.3-1.0 [facility] Comment on above: Performed By: #### A DNA, SJOGRENS, HELM, C3, HISAB, CCP, CHROMATIN, CENTROME, RA, CYNDI, [id number], JO1, B2 GLYPROT, ANTIR, CARDIO GMA, C4, CH50 #### [facility] , Calcium [Mass/Vol] 10.3 mg/dL Normal 8.6-10.3 [facility] Comment on above: Performed By: #### A DNA, SJOGRENS, HELM, C3, HISAB, CCP, CHROMATIN, CENTROME, RA, CYNDI, [id number], JO1, B2 GLYPROT, ANTIR, CARDIO GMA, C4, CH50 #### [facility] , Chloride [Moles/Vol] 103 mmol/L Normal 98-107 [facility] Comment on above: Performed By: #### A DNA, SJOGRENS, HELM, C3, HISAB, CCP, CHROMATIN, CENTROME, RA, CYNDI, [id number], JO1, B2 GLYPROT, ANTIR, CARDIO GMA, C4, CH50 #### [facility] , CO2 [Moles/Vol] 28.8 mmol/L Normal 21.0-31.0 [facility] Comment on above: Performed By: #### A DNA, SJOGRENS, HELM, C3, HISAB, CCP, CHROMATIN, CENTROME, RA, CYNDI, [id number], JO1, B2 GLYPROT, ANTIR, CARDIO GMA, C4, CH50 #### [facility] , Creatinine [Mass/Vol] 0.66 mg/dL Normal 0.60-1.20 [facility] Comment on above: Performed By: #### A DNA, SJOGRENS, HELM, C3, HISAB, CCP, CHROMATIN, CENTROME, RA, CYNDI, [id number], JO1, B2 GLYPROT, ANTIR, CARDIO GMA, C4, CH50 #### [facility] , GFR/1.73 sq M.predicted MDRD (S/P/Bld) [Vol rate/Area] mL/min/{1.73_m2} Normal [facility] Comment on above: Performed By: #### A DNA, SJOGRENS, HELM, C3, HISAB, CCP, CHROMATIN, CENTROME, RA, CYNDI, [id number], JO1, B2 GLYPROT, ANTIR, CARDIO GMA, C4, CH50 #### [facility] , Globulin (S) [Mass/Vol] 2.8 g/dL Normal [facility] Comment on above: Performed By: #### A DNA, SJOGRENS, HELM, C3, HISAB, CCP, CHROMATIN, CENTROME, RA, CYNDI, [id number], JO1, B2 GLYPROT, ANTIR, CARDIO GMA, C4, CH50 #### [facility] , Glucose [Mass/Vol] 77 mg/dL Normal 70-100 [facility] Comment on above: Result Comment: [place] Glucose Reference Range is dependent on time and content of last meal. Glucose of more than 200 mg/dL in a nonstressed, ambulatory subject supports the diagnosis of Diabetes Mellitus. ADA recommended reference range Performed By: #### A DNA, SJOGRENS, HELM, C3, HISAB, CCP, CHROMATIN, CENTROME, RA, CYNDI, [id number], JO1, B2 GLYPROT, ANTIR, CARDIO GMA, C4, CH50 #### [facility] , Potassium [Moles/Vol] 4.3 mmol/L Normal 3.5-5.1 [facility] Comment on above: Performed By: #### A DNA, SJOGRENS, HELM, C3, HISAB, CCP, CHROMATIN, CENTROME, RA, CYNDI, [id number], JO1, B2 GLYPROT, ANTIR, CARDIO GMA, C4, CH50 #### [facility] , Protein [Mass/Vol] 7.5 g/dL Normal 6.0-8.5 [facility] Comment on above: Performed By: #### A DNA, SJOGRENS, HELM, C3, HISAB, CCP, CHROMATIN, CENTROME, RA, CYNDI, [id number], JO1, B2 GLYPROT, ANTIR, CARDIO GMA, C4, CH50 #### [facility] , Sodium [Moles/Vol] 141 mmol/L Normal 136-145 [facility] Comment on above: Performed By: #### A DNA, SJOGRENS, HELM, C3, HISAB, CCP, CHROMATIN, CENTROME, RA, CYNDI, [id number], JO1, B2 GLYPROT, ANTIR, CARDIO GMA, C4, CH50 #### [facility] , Urea nitrogen [Mass/Vol] 12 mg/dL Normal 7-25 [facility] Comment on above: Performed By: #### A DNA, SJOGRENS, HELM, C3, HISAB, CCP, CHROMATIN, CENTROME, RA, CYNDI, [id number], JO1, B2 GLYPROT, ANTIR, CARDIO GMA, C4, CH50 #### [facility] , Creatine Kinaseon 12-12-2024 CK [Catalytic activity/Vol] 122 U/L Normal 30-223 [facility] Comment on above: Result Comment: PERF ORMED BY: [address] [place] [address] PATHOLOGIST MACHINE GUN MECHANIC CARLOS KNAPP M.D. Performed By: #### A DNA, SJOGRENS, HELM, C3, HISAB, CCP, CHROMATIN, CENTROME, RA, CYNDI, [id number], JO1, B2 GLYPROT, ANTIR, CARDIO GMA, C4, CH50 #### [facility] , Creatine kinase [Enzymatic a ctivity/volume] in Serum or PlasmaOrdered By: Jacob Baker on 12-12-2024 CK [Catalytic activity/Vol] Creatine kinase [Enzymatic activity/volume] in Serum or Plasma 30-223 [facility] Creatinine [Mass/volume] in Serum or PlasmaOrdered By: Jacob Baker on 12-12-2024 Creatinine [Mass/Vol] Creatinine [Mass/volume] in Serum or Plasma 0.60-1.20 [facility] Cyclic Citrulliated Pep Abon 12-12-2024 Cyclic Citrulliated Pep Ab 7 Normal 0-19 [facility] Comment on above: Result Comment: Nega tive <20 Weak positive 20 - 39 Moderate positive 40 - 59 Strong positive >59 Performed at: [facility] [id number] Medical Office Receptionist Assistant: Santy Storey PhD, Phone: [phone] Performed By: #### A DNA, SJOGRENS, HELM, C3, HISAB, CCP, CHROMATIN, CENTROME, RA, CYNDI, [id number], JO1, B2 GLYPROT, ANTIR, CARDIO GMA, C4, CH50 #### [facility] , DNA double strand Ab [Units/ volume] in SerumOrdered By: Jacob Baker on 12-12-2024 DNA double strand Ab Qn (S) DNA double strand Ab [Units/volume] in Serum 0-9 [facility] Comment on above: Negative <5 Equivoca l 5 - 9 Positive >9 Dipstick and Microscopicon 0 12-12-2024 Appearance (U) Clear Normal Clear [facility] Comment on above: Order Comment: Name Collection Type:: Clean-Voided Midstream Performed By: #### A DNA, SJOGRENS, HELM, C3, HISAB, CCP, CHROMATIN, CENTROME, RA, CYNDI, [id number], JO1, B2 GLYPROT, ANTIR, CARDIO GMA, C4, CH50 #### [facility] , Bacteria,Urine None Seen Normal None Seen [facility] Comment on above: Order Comment: Name Collection Type:: Clean-Voided Midstream Performed By: #### A DNA, SJOGRENS, HELM, C3, HISAB, CCP, CHROMATIN, CENTROME, RA, CYNDI, [id number], JO1, B2 GLYPROT, ANTIR, CARDIO GMA, C4, CH50 #### [facility] , Bilirubin,Urine Negative Normal Negative [facility] Comment on above: Order Comment: Name Collection Type:: Clean-Voided Midstream Performed By: #### A DNA, SJOGRENS, HELM, C3, HISAB, CCP, CHROMATIN, CENTROME, RA, CYNDI, [id number], JO1, B2 GLYPROT, ANTIR, CARDIO GMA, C4, CH50 #### [facility] , Color (U) Light-Yellow Normal Yellow [facility] Comment on above: Order Comment: Name Collection Type:: Clean-Voided Midstream Performed By: #### A DNA, SJOGRENS, HELM, C3, HISAB, CCP, CHROMATIN, CENTROME, RA, CYNDI, [id number], JO1, B2 GLYPROT, ANTIR, CARDIO GMA, C4, CH50 #### [facility] , Glucose Ql (U) Normal Normal Normal [facility] Comment on above: Order Comment: Name Collection Type:: Clean-Voided Midstream Performed By: #### A DNA, SJOGRENS, HELM, C3, HISAB, CCP, CHROMATIN, CENTROME, RA, CYNDI, [id number], JO1, B2 GLYPROT, ANTIR, CARDIO GMA, C4, CH50 #### [facility] , Hyaline Casts,Urine None Normal 0-[address] [facility] Comment on above: Order Comment: Name Collection Type:: Clean-Voided Midstream Performed By: #### A DNA, SJOGRENS, HELM, C3, HISAB, CCP, CHROMATIN, CENTROME, RA, CYNDI, [id number], JO1, B2 GLYPROT, ANTIR, CARDIO GMA, C4, CH50 #### [facility] , Ketones Ql (U) Negative Normal Negative [facility] Comment on above: Order Comment: Name Collection Type:: Clean-Voided Midstream Performed By: #### A DNA, SJOGRENS, HELM, C3, HISAB, CCP, CHROMATIN, CENTROME, RA, CYNDI, [id number], JO1, B2 GLYPROT, ANTIR, CARDIO GMA, C4, CH50 #### [facility] , Leukocyte esterase Test strip Ql (U) Negative Normal Negative [facility] Comment on above: Order Comment: Name Collection Type:: Clean-Voided Midstream Performed By: #### A DNA, SJOGRENS, HELM, C3, HISAB, CCP, CHROMATIN, CENTROME, RA, CYNDI, [id number], JO1, B2 GLYPROT, ANTIR, CARDIO GMA, C4, CH50 #### [facility] , Mucus,Urine Rare Normal [facility] Comment on above: Order Comment: Name Collection Type:: Clean-Voided Midstream Result Comment: PERF ORMED BY: [facility] [address] [place] [address] PATHOLOGIST MACHINE GUN MECHANIC CARLOS KNAPP M.D. Performed By: #### A DNA, SJOGRENS, HELM, C3, HISAB, CCP, CHROMATIN, CENTROME, RA, CYNDI, [id number], JO1, B2 GLYPROT, ANTIR, CARDIO GMA, C4, CH50 #### [facility] , Nitrite,Urine Negative Normal Negative [facility] Comment on above: Order Comment: Name Collection Type:: Clean-Voided Midstream Performed By: #### A DNA, SJOGRENS, HELM, C3, HISAB, CCP, CHROMATIN, CENTROME, RA, CYNDI, [id number], JO1, B2 GLYPROT, ANTIR, CARDIO GMA, C4, CH50 #### [facility] , Occult Blood,Urine Negative Normal Negative [facility] Comment on above: Order Comment: Name Collection Type:: Clean-Voided Midstream Performed By: #### A DNA, SJOGRENS, HELM, C3, HISAB, CCP, CHROMATIN, CENTROME, RA, CYNDI, [id number], JO1, B2 GLYPROT, ANTIR, CARDIO GMA, C4, CH50 #### [facility] , pH (U) 6.5 [pH] Normal 5.0-9.0 [facility] Comment on above: Order Comment: Name Collection Type:: Clean-Voided Midstream Performed By: #### A DNA, SJOGRENS, HELM, C3, HISAB, CCP, CHROMATIN, CENTROME, RA, CYNDI, [id number], JO1, B2 GLYPROT, ANTIR, CARDIO GMA, C4, CH50 #### [facility] , Protein,Urine Negative Normal Negative [facility] Comment on above: Order Comment: Name Collection Type:: Clean-Voided Midstream Performed By: #### A DNA, SJOGRENS, HELM, C3, HISAB, CCP, CHROMATIN, CENTROME, RA, CYNDI, [id number], JO1, B2 GLYPROT, ANTIR, CARDIO GMA, C4, CH50 #### [facility] , RBC,Urine 1-2 Normal 0-4 [facility] Comment on above: Order Comment: Name Collection Type:: Clean-Voided Midstream Performed By: #### A DNA, SJOGRENS, HELM, C3, HISAB, CCP, CHROMATIN, CENTROME, RA, CYNDI, [id number], JO1, B2 GLYPROT, ANTIR, CARDIO GMA, C4, CH50 #### [facility] , Specificy [place],Urine 1.005 Normal 1.001-1.030 [facility] Comment on above: Order Comment: Name Collection Type:: Clean-Voided Midstream Performed By: #### A DNA, SJOGRENS, HELM, C3, HISAB, CCP, CHROMATIN, CENTROME, RA, CYNDI, [id number], JO1, B2 GLYPROT, ANTIR, CARDIO GMA, C4, CH50 #### [facility] , Squamous Epithelial Cell,Urine 1-2 Normal 0-2 [facility] Comment on above: Order Comment: Name Collection Type:: Clean-Voided Midstream Performed By: #### A DNA, SJOGRENS, HELM, C3, HISAB, CCP, CHROMATIN, CENTROME, RA, CYNDI, [id number], JO1, B2 GLYPROT, ANTIR, CARDIO GMA, C4, CH50 #### [facility] , Urobilinogen,Urine Normal Normal Normal [facility] Comment on above: Order Comment: Name Collection Type:: Clean-Voided Midstream Performed By: #### A DNA, SJOGRENS, HELM, C3, HISAB, CCP, CHROMATIN, CENTROME, RA, CYNDI, [id number], JO1, B2 GLYPROT, ANTIR, CARDIO GMA, C4, CH50 #### [facility] , WBC,Urine 1-2 Normal 0-4 [facility] Comment on above: Order Comment: Name Collection Type:: Clean-Voided Midstream Performed By: #### A DNA, SJOGRENS, HELM, C3, HISAB, CCP, CHROMATIN, CENTROME, RA, CYNDI, [id number], JO1, B2 GLYPROT, ANTIR, CARDIO GMA, C4, CH50 #### [facility] , Eosinophils Auto (Bld) [#/Vo l]Ordered By: Jacob Baker on 12-12-2024 Eosinophils (Bld) [#/Vol] Automated eosinophil count 0.0-0.45 [facility] Eosinophils/100 WBC Auto (Bl d)Ordered By: Jacob Baker on 12-12-2024 Eosinophils/100 WBC (Bld) Automated eosinophil % . [facility] Epithelial cells.squamous [# /area] in Urine sediment by Automated countOrdered By: Jacob Baker on 12-12-2024 Epithelial cells.squamous Auto (Urine sed) [#/Area] Epithelial cells.squamous [#/area] in Urine sediment by Automated count 0-2 [facility] Erythrocyte Sedimentation Ra don 12-12-2024 ESR (Bld) [Velocity] 19 mm/h Normal 0-19 [facility] Comment on above: Result Comment: PERF ORMED BY: [facility] [address] [place] [address] PATHOLOGIST MACHINE GUN MECHANIC CARLOS KNAPP M.D. Performed By: #### A DNA, SJOGRENS, HELM, C3, HISAB, CCP, CHROMATIN, CENTROME, RA, CYNDI, [id number], JO1, B2 GLYPROT, ANTIR, CARDIO GMA, C4, CH50 #### [facility] , Erythrocyte distribution wid th Auto (RBC) [Ratio]Ordered By: Jacob Baker on 12-12-2024 Erythrocyte distribution width (RBC) [Ratio] Erythrocyte distribution width [Ratio] by Automated count 11.9-15.3 [facility] Erythrocyte sedimentation ra te by Photometric methodOrdered By: Jacob Baker on 12-12-2024 ESR Photometric method (Bld) [Velocity] Erythrocyte sedimentation rate by Photometric method 0-19 [facility] Erythrocytes [#/area] in Uri ne sediment by Automated countOrdered By: Jacob Baker on 12-12-2024 RBC Auto (Urine sed) [#/Area] Erythrocytes [#/area] in Urine sediment by Automated count 0-4 [facility] Free T4 (Free Thyroxine)on 0 12-12-2024 Free T4 [Mass/Vol] 0.84 ng/dL Normal 0.61-1.12 [facility] Comment on above: Performed By: #### A DNA, SJOGRENS, HELM, C3, HISAB, CCP, CHROMATIN, CENTROME, RA, CYNDI, [id number], JO1, B2 GLYPROT, ANTIR, CARDIO GMA, C4, CH50 #### [facility] , Globulin Calc (S) [Mass/Vol] Ordered By: Jacob Baker on 12-12-2024 Globulin (S) [Mass/Vol] Serum globulin measurement by calculation (mass/volume) [facility] Glucose [Mass/volume] in Ser um or PlasmaOrdered By: Jacob Baker on 12-12-2024 Glucose [Mass/Vol] Glucose [Mass/volume ] in Serum or Plasma 70-100 [facility] Comment on above: ADA recommended refe [...] [Mass/volume] in Urine by Test strip Normal [facility] Hematocrit Auto (Bld) [Volum e fraction]Ordered By: Jacob Baker on 12-12-2024 Hematocrit (Bld) [Volume fraction] Hematocrit [Volume Fraction] of Blood by Automated count 34.0-46.4 [facility] Hemoglobin Test strip Ql (U) Ordered By: Jacob Baker on 12-12-2024 Hemoglobin Ql (U) Hemoglobin [Presence ] in Urine by Test strip Negative [facility] Hemoglobin [Mass/volume] in BloodOrdered By: Jacob Baker on 12-12-2024 Hemoglobin (Bld) [Mass/Vol] Hemoglobin [Mass/volume] in Blood 11.8-15.4 [facility] Histone Antibodieson 025 Histone Antibodies 1.4 High 0.0-0.9 [facility] Comment on above: Result Comment: Nega tive <1.0 Weak Positive 1.0 - 1.5 Moderate Positive 1.6 - 2.5 Strong Positive >2.5 Performed at: [facility] [address] [id number] Medical Office Receptionist Assistant: Anne Oro MD, Phone: [phone] Performed By: #### A DNA, SJOGRENS, HELM, C3, HISAB, CCP, CHROMATIN, CENTROME, RA, CYNDI, [id number], JO1, B2 GLYPROT, ANTIR, CARDIO GMA, C4, CH50 #### [facility] , Hyaline casts [#/area] in Ur ine sediment by Automated countOrdered By: Jacob Baker on 12-12-2024 Hyaline casts Auto (Urine sed) [#/Area] Hyaline casts [#/area] in Urine sediment by Automated count 0-8 [facility] INR in Platelet poor plasma by Coagulation assayOrdered By: Jacob Baker on 12-12-2024 INR Coag (PPP) [Relative time] INR in Platelet poor plasma by Coagulation assay [facility] Comment on above: INR Therapeutic Rang [...] Immunofixation (U) [Interp] Immunofixation for Urine . [facility] Comment on above: No monoclonality det ected.Performed at: [facility] [address] [id number] Director: Santy Storey PhD, Phone: [phone] Immunofixation, (SYMONE), Urine on 12-12-2024 Immunofixation, (SYMONE), Urine Comment Normal . [facility] Comment on above: Result Comment: No m onoclonality detected. Performed at: [facility] [address] [id number] Medical Office Receptionist Assistant: Santy Storey PhD, Phone: [phone] Performed By: #### A DNA, SJOGRENS, HELM, C3, HISAB, CCP, CHROMATIN, CENTROME, RA, CYNDI, [id number], JO1, B2 GLYPROT, ANTIR, CARDIO GMA, C4, CH50 #### [facility] , Immunofixation,Serumon 12-12 Immunofixation, Serum Comment Normal . [facility] Comment on above: Result Comment: No m onoclonality detected. Performed By: #### A DNA, SJOGRENS, HELM, C3, HISAB, CCP, CHROMATIN, CENTROME, RA, CYNDI, [id number], JO1, B2 GLYPROT, ANTIR, CARDIO GMA, C4, CH50 #### [facility] , Immunoglobulin A, Serum 262 mg/dL Normal 87-352 [facility] Comment on above: Performed By: #### A DNA, SJOGRENS, HELM, C3, HISAB, CCP, CHROMATIN, CENTROME, RA, CYNDI, [id number], JO1, B2 GLYPROT, ANTIR, CARDIO GMA, C4, CH50 #### [facility] , Immunoglobulin G 935 mg/dL Normal [id number] [facility] Comment on above: Performed By: #### A DNA, SJOGRENS, HELM, C3, HISAB, CCP, CHROMATIN, CENTROME, RA, CYNDI, [id number], JO1, B2 GLYPROT, ANTIR, CARDIO GMA, C4, CH50 #### [facility] , Immunoglobulin M, Serum 110 mg/dL Normal 26-217 [facility] Comment on above: Result Comment: Perf ormed at: - [facility] [address] [id number] Medical Office Receptionist Assistant: Santy Storey PhD, Phone: [phone] Performed By: #### A DNA, SJOGRENS, HELM, C3, HISAB, CCP, CHROMATIN, CENTROME, RA, CYNDI, [id number], JO1, B2 GLYPROT, ANTIR, CARDIO GMA, C4, CH50 #### [facility] , ES-1 Antibodyon 12-12-2024 ES-1 Antibody <0.2 Normal 0.0-0.9 [facility] Comment on above: Performed By: #### A DNA, SJOGRENS, HELM, C3, HISAB, CCP, CHROMATIN, CENTROME, RA, CYNDI, [id number], JO1, B2 GLYPROT, ANTIR, CARDIO GMA, C4, CH50 #### [facility] , Ketones Test strip Ql (U)Ord ered By: Jacob Baker on 12-12-2024 Ketones Ql (U) Ketones [Presence] i n Urine by Test strip Negative [facility] Leukocyte esterase [Presence ] in Urine by Test stripOrdered By: Jacob Baker on 12-12-2024 Leukocyte esterase Test strip Ql (U) Leukocyte esterase [Presence] in Urine by Test strip Negative [facility] Leukocytes [#/area] in Urine sediment by Automated countOrdered By: Jacob Baker on 12-12-2024 WBC Auto (Urine sed) [#/Area] Leukocytes [#/area] in Urine sediment by Automated count 0-4 [facility] Leukocytes [#/volume] correc caitlin for nucleated erythrocytes in Blood by Automated counOrdered By: Jacob Baker on 12-12-2024 WBC corrected for nucl RBC Auto (Bld) [#/Vol] Leukocytes [#/volume] corrected for nucleated erythrocytes in Blood by Automated coun 3.8-11.6 [facility] Lupus Anticoagulant Compon 0 12-12-2024 Dilute Prothrombin Time (dPt) 28.5 Normal 0.0-47.6 [facility] Comment on above: Performed By: #### A DNA, SJOGRENS, HELM, C3, HISAB, CCP, CHROMATIN, CENTROME, RA, CYNDI, [id number], JO1, B2 GLYPROT, ANTIR, CARDIO GMA, C4, CH50 #### [facility] , dPT Confirm Ratio 1.09 Normal 0.00-1.34 [facility] Comment on above: Performed By: #### A DNA, SJOGRENS, HELM, C3, HISAB, CCP, CHROMATIN, CENTROME, RA, CYNDI, [id number], JO1, B2 GLYPROT, ANTIR, CARDIO GMA, C4, CH50 #### [facility] , DRVVT Lupus 29.9 Normal 0.0-47.0 [facility] Comment on above: Performed By: #### A DNA, SJOGRENS, HELM, C3, HISAB, CCP, CHROMATIN, CENTROME, RA, CYNDI, [id number], JO1, B2 GLYPROT, ANTIR, CARDIO GMA, C4, CH50 #### [facility] , Interpretation Comment: Normal . [facility] Comment on above: Result Comment: No l upus anticoagulant was detected. Performed at: - [facility] [id number] Medical Office Receptionist Assistant: Anne Oro MD, Phone: [phone] PERFORMED BY: [address] [place] [address] PATHOLOGIST MACHINE GUN MECHANIC CARLOS KNAPP M.D. Performed By: #### A DNA, SJOGRENS, HELM, C3, HISAB, CCP, CHROMATIN, CENTROME, RA, CYNDI, [id number], JO1, B2 GLYPROT, ANTIR, CARDIO GMA, C4, CH50 #### [facility] , PTT-LA 26.0 Normal 0.0-43.5 [facility] Comment on above: Performed By: #### A DNA, SJOGRENS, HELM, C3, HISAB, CCP, CHROMATIN, CENTROME, RA, CYNDI, [id number], JO1, B2 GLYPROT, ANTIR, CARDIO GMA, C4, CH50 #### [facility] , Thrombin Time 17.0 Normal 0.0-23.0 [facility] Comment on above: Performed By: #### A DNA, SJOGRENS, HELM, C3, HISAB, CCP, CHROMATIN, CENTROME, RA, CYNDI, [id number], JO1, B2 GLYPROT, ANTIR, CARDIO GMA, C4, CH50 #### [facility] , Lupus anticoagulant [Interpr etation] in Platelet poor plasmaOrdered By: Jacob Baker on 12-12-2024 Lupus anticoagulant (PPP) [Interp] Lupus anticoagulant [Interpretation] in Platelet poor plasma . [facility] Comment on above: No lupus anticoagula nt was detected.Performed at: - [facility] [id number] Director: Anne Oro MD, Phone: [phone] Lymphocytes Auto (Bld) [#/Vo l]Ordered By: Jacob Baker on 12-12-2024 Lymphocytes (Bld) [#/Vol] Lymphocytes [#/volume] in Blood by Automated count 1.00-4.8 [facility] Lymphocytes/100 WBC Auto (Bl d)Ordered By: Jacob Baker on 12-12-2024 Lymphocytes/100 WBC (Bld) Lymphocytes/100 leukocytes in Blood by Automated count . [facility] MCH Auto (RBC) [Entitic mass ]Ordered By: Jacob Baker on 12-12-2024 MCH (RBC) [Entitic mass] MCH [Entitic mass] by Automated count 24.7-34.3 [facility] MCHC Auto (RBC) [Mass/Vol]Or dered By: Jacob Baker on 12-12-2024 MCHC (RBC) [Mass/Vol] MCHC [Mass/volume] by Automated count 32.0-35.0 [facility] MCV Auto (RBC) [Entitic vol] Ordered By: Jacob Baker on 12-12-2024 MCV (RBC) [Entitic vol] MCV [Entitic volume] by Automated count 80-100 [facility] Monocytes Auto (Bld) [#/Vol] Ordered By: Jacob Baker on 12-12-2024 Monocytes (Bld) [#/Vol] Automated blood monocyte count 0.0-0.8 [facility] Monocytes/100 WBC Auto (Bld) Ordered By: Jacob Baker on 12-12-2024 Monocytes/100 WBC (Bld) Automated monocyte % . [facility] Mucus [Presence] in Urine by AutomatedOrdered By: Jacob Baker on 12-12-2024 Mucus Auto Ql (U) Mucus [Presence] in Urine by Automated [facility] Myoglobinon 12-12-2024 Myoglobin [Mass/Vol] ng/mL Low 25-58 [facility] Comment on above: Result Comment: Perf ormed at: - [facility] [address] [id number] Medical Office Receptionist Assistant: Santy Storey PhD, Phone: [phone] Performed By: #### A DNA, SJOGRENS, HELM, C3, HISAB, CCP, CHROMATIN, CENTROME, RA, CYNDI, [id number], JO1, B2 GLYPROT, ANTIR, CARDIO GMA, C4, CH50 #### [facility] , Neutrophils Auto (Bld) [#/Vo l]Ordered By: Jacob Baker on 12-12-2024 Neutrophils (Bld) [#/Vol] Neutrophils [#/volume] in Blood by Automated count 1.8-7.7 [facility] Neutrophils/100 WBC Auto (Bl d)Ordered By: Jacob Baker on 12-12-2024 Neutrophils/100 WBC (Bld) Automated neutrophil % . [facility] Nitrite Test strip Ql (U)Ord ered By: Jacob Baker on 12-12-2024 Nitrite Ql (U) Nitrite [Presence] i n Urine by Test strip Negative [facility] No Panel InformationOrdered By: Jacob Baker on 12-12-2024 Estimated GFR (CKD-EPI) > 60.0 mL/Min [facility] Creatinine Clearance (Chem N/A [facility] Protein Electrophoresis M-Vincent Not observed g/dL Not Observed [facility] Protein Electrophoresis Note Comment . [facility] Comment on above: Protein electrophore sis scan will follow via computer,mail, or mains and service supervisor delivery.Performed at: [address] [id number] Director: Santy Storey PhD, Phone: [phone] Urine Random Prot Electrophor Note Comment . [facility] Comment on above: Protein electrophore sis scan will follow via computer,mail, or mains and service supervisor delivery. Nucleated erythrocytes [Pres ence] in Blood by Automated countOrdered By: Jacob Baker on 12-12-2024 Nucleated RBC Auto Ql (Bld) Nucleated erythrocytes [Presence] in Blood by Automated count 0-0.5 [facility] Plasma thrombin timeOrdered By: Jacob Baker on 12-12-2024 Thrombin time Coag (PPP) [Time] TT plas 0.0-23.0 [facility] Platelet mean volume Auto (B ld) [Entitic vol]Ordered By: Jacob Baker on 12-12-2024 Platelet mean volume (Bld) [Entitic vol] Platelet mean volume [Entitic volume] in Blood by Automated count 6.3-10.7 [facility] Platelet poor plasma ratio o f lupus anticoagulant-sensitive activated partial thromboOrdered By: Jacob Baker on 12-12-2024 aPTT.lupus sensitive.excess phospholipid actual/normal Coag (PPP) [Relative time] Platelet poor plasma ratio of lupus anticoagulant-sensitive activated partial thrombo 0.0-47.6 [facility] Platelets Auto (Bld) [#/Vol] Ordered By: Jacob Baker on 12-12-2024 Platelets (Bld) [#/Vol] Platelets [#/volume] in Blood by Automated count 150-450 [facility] Potassium [Moles/volume] in Serum or PlasmaOrdered By: Jacob Baker on 12-12-2024 Potassium [Moles/Vol] Potassium [Moles/volume] in Serum or Plasma 3.5-5.1 [facility] Protein Electro, Random Urin trent 12-12-2024 Albumin, Urine 21.6 % Normal . [facility] Comment on above: Performed By: #### A DNA, SJOGRENS, HELM, C3, HISAB, CCP, CHROMATIN, CENTROME, RA, CYNDI, [id number], JO1, B2 GLYPROT, ANTIR, CARDIO GMA, C4, CH50 #### [facility] , Nvspr-5-Wkqmptha, Urine 7.6 % Normal . [facility] Comment on above: Performed By: #### A DNA, SJOGRENS, HELM, C3, HISAB, CCP, CHROMATIN, CENTROME, RA, CYDNI, [id number], JO1, B2 GLYPROT, ANTIR, CARDIO GMA, C4, CH50 #### [facility] , Jjwfn-6-Cyytdzpe, Urine 12.8 % Normal . [facility] Comment on above: Performed By: #### A DNA, SJOGRENS, HELM, C3, HISAB, CCP, CHROMATIN, CENTROME, RA, CYNDI, [id number], JO1, B2 GLYPROT, ANTIR, CARDIO GMA, C4, CH50 #### [facility] , Beta Globulin, Urine 40.6 % Normal . [facility] Comment on above: Performed By: #### A DNA, SJOGRENS, HELM, C3, HISAB, CCP, CHROMATIN, CENTROME, RA, CYNDI, [id number], JO1, B2 GLYPROT, ANTIR, CARDIO GMA, C4, CH50 #### [facility] , Gamma Globulin, Urine 17.5 % Normal . [facility] Comment on above: Performed By: #### A DNA, SJOGRENS, HELM, C3, HISAB, CCP, CHROMATIN, CENTROME, RA, CYNDI, [id number], JO1, B2 GLYPROT, ANTIR, CARDIO GMA, C4, CH50 #### [facility] , M-Vincent % Not Observed Normal Not Observed [facility] Comment on above: Performed By: #### A DNA, SJOGRENS, HELM, C3, HISAB, CCP, CHROMATIN, CENTROME, RA, CYNDI, [id number], JO1, B2 GLYPROT, ANTIR, CARDIO GMA, C4, CH50 #### [facility] , Please Note: Comment Normal . [facility] Comment on above: Result Comment: Prot ein electrophoresis scan will follow via computer, mail, or mains and service supervisor delivery. PERFORMED BY: [facility] [address] PATHOLOGIST MACHINE GUN MECHANIC CARLOS KNAPP M.D. Performed By: #### A DNA, SJOGRENS, HELM, C3, HISAB, CCP, CHROMATIN, CENTROME, RA, CYNDI, [id number], JO1, B2 GLYPROT, ANTIR, CARDIO GMA, C4, CH50 #### [facility] , Protein (U) [Mass/Vol] mg/dL Normal Not Estab. [facility] Comment on above: Result Comment: Ve rified by repeat analysis Performed By: #### A DNA, SJOGRENS, HELM, C3, HISAB, CCP, CHROMATIN, CENTROME, RA, CYNDI, [id number], JO1, B2 GLYPROT, ANTIR, CARDIO GMA, C4, CH50 #### [facility] , Protein Electrophoresis, Ser umon 12-12-2024 Albumin [Mass/Vol] 4.1 g/dL Normal 2.9-4.4 [facility] Comment on above: Performed By: #### A DNA, SJOGRENS, HELM, C3, HISAB, CCP, CHROMATIN, CENTROME, RA, CYNDI, [id number], JO1, B2 GLYPROT, ANTIR, CARDIO GMA, C4, CH50 #### [facility] , Albumin/Globulin [Mass ratio] 1.2 {ratio} Normal 0.7-1.7 [facility] Comment on above: Performed By: #### A DNA, SJOGRENS, HELM, C3, HISAB, CCP, CHROMATIN, CENTROME, RA, CYNDI, [id number], JO1, B2 GLYPROT, ANTIR, CARDIO GMA, C4, CH50 #### [facility] , Bkjco-4-Yipcsmsp 0.3 g/dL Normal 0.0-0.4 [facility] Comment on above: Performed By: #### A DNA, SJOGRENS, HELM, C3, HISAB, CCP, CHROMATIN, CENTROME, RA, CYNDI, [id number], JO1, B2 GLYPROT, ANTIR, CARDIO GMA, C4, CH50 #### [facility] , Dkksy-1-Leycequl 0.9 g/dL Normal 0.4-1.0 [facility] Comment on above: Performed By: #### A DNA, SJOGRENS, HELM, C3, HISAB, CCP, CHROMATIN, CENTROME, RA, CYNDI, [id number], JO1, B2 GLYPROT, ANTIR, CARDIO GMA, C4, CH50 #### [facility] , Beta Globulin 1.2 g/dL Normal 0.7-1.3 [facility] Comment on above: Performed By: #### A DNA, SJOGRENS, HELM, C3, HISAB, CCP, CHROMATIN, CENTROME, RA, CYNDI, [id number], JO1, B2 GLYPROT, ANTIR, CARDIO GMA, C4, CH50 #### [facility] , Gamma Globulin 1.0 g/dL Normal 0.4-1.8 [facility] Comment on above: Performed By: #### A DNA, SJOGRENS, HELM, C3, HISAB, CCP, CHROMATIN, CENTROME, RA, CYNDI, [id number], JO1, B2 GLYPROT, ANTIR, CARDIO GMA, C4, CH50 #### [facility] , Globulin (S) [Mass/Vol] 3.4 g/dL Normal 2.2-3.9 [facility] Comment on above: Performed By: #### A DNA, SJOGRENS, HELM, C3, HISAB, CCP, CHROMATIN, CENTROME, RA, CYNDI, [id number], JO1, B2 GLYPROT, ANTIR, CARDIO GMA, C4, CH50 #### [facility] , M-Vincent Not Observed Normal Not Observed [facility] Comment on above: Performed By: #### A DNA, SJOGRENS, HELM, C3, HISAB, CCP, CHROMATIN, CENTROME, RA, CNYDI, [id number], JO1, B2 GLYPROT, ANTIR, CARDIO GMA, C4, CH50 #### [facility] , SPE-Note Comment Normal . [facility] Comment on above: Result Comment: Prot ein electrophoresis scan will follow via computer, mail, or mains and service supervisor delivery. Performed at: [address] [id number] Medical Office Receptionist Assistant: Santy Storey PhD, Phone: [phone] Performed By: #### A DNA, SJOGRENS, HELM, C3, HISAB, CCP, CHROMATIN, CENTROME, RA, CYNDI, [id number], JO1, B2 GLYPROT, ANTIR, CARDIO GMA, C4, CH50 #### [facility] , Protein Test strip (U) [Mass /Vol]Ordered By: Jacob Baker on 12-12-2024 Protein (U) [Mass/Vol] Protein [Mass/vol ume] in Urine by Test strip Negative [facility] Protein [Mass/volume] in Ser um or PlasmaOrdered By: Jacob Baker on 12-12-2024 Protein [Mass/Vol] Protein [Mass/volume ] in Serum or Plasma 6.0-8.5 [facility] Prothrombin time (PT)Ordered By: Jacob Baker on 12-12-2024 PT Coag (PPP) [Time] Prothrombin time (PT) 9.0- 12.9 [facility] Comment on above: A hematocrit value g reater than 55% may lead to inaccurate results in coagulation testing. Patients having hematocrit values >55% require a special collection tube for coagulation studies. Please contact the laboratory at [phone] for redraw instructions. RBC Auto (Bld) [#/Vol]Ordere d By: Jacob Baker on 12-12-2024 RBC (Bld) [#/Vol] Erythrocytes [#/volu me] in Blood by Automated count 3.60-5.00 [facility] RPR w/rfx to Quant TP Abson 12-12-2024 RPR, Rfx Quant RPR Non-Reactive Normal Non Reactive [facility] Comment on above: Result Comment: Perf ormed at: [address] [id number] Medical Office Receptionist Assistant: Santy Storey PhD, Phone: [phone] PERFORMED BY: [facility] [place] [address] PATHOLOGIST MACHINE GUN MECHANIC CARLOS KNAPP M.D. Performed By: #### A DNA, SJOGRENS, HELM, C3, HISAB, CCP, CHROMATIN, CENTROME, RA, CYNDI, [id number], JO1, B2 GLYPROT, ANTIR, CARDIO GMA, C4, CH50 #### [facility] , Rheumatoid Factoron 12-13-19 Rheumatoid Factor <10.0 Normal <14.0 [facility] Comment on above: Result Comment: Perf ormed at: - [facility] [place] [id number] [place], [place] [id number] Medical Office Receptionist Assistant: Santy Storey PhD, Phone: [phone] Performed By: #### A DNA, SJOGRENS, HELM, C3, HISAB, CCP, CHROMATIN, CENTROME, RA, CYNDI, [id number], JO1, B2 GLYPROT, ANTIR, CARDIO GMA, C4, CH50 #### [facility] , Ribonucleoprotein antibody a ssayOrdered By: Jacob Baker on 12-12-2024 CERTIFIED RESIDENTIAL MEDICATION AIDE Antibody <0.2 AI 0.0-0.9 [facility] Scl-70 antibody assayOrdered By: Jacob Baker on 12-12-2024 Scl-70 (Scleroderma) Antibody <0.2 AI 0.0-0.9 [facility] Scleroderma 70 Antibodieson 12-12-2024 Scleroderma 70 Antibodies <0.2 Normal 0.0-0.9 [facility] Comment on above: Performed By: #### A DNA, SJOGRENS, HELM, C3, HISAB, CCP, CHROMATIN, CENTROME, RA, CYNDI, [id number], JO1, B2 GLYPROT, ANTIR, CARDIO GMA, C4, CH50 #### [facility] , Screening dilute Kuldip's v iper venom time (DRVVT) with reflex to confirmatory testOrdered By: Jacob Baker on 12-12-2024 dRVVT Coag (PPP) [Time] Screening dilute Kuldip's viper venom time (DRVVT) with reflex to confirmatory test 0.0-47.0 [facility] Screening lupus anticoagulan t-sensitive activated partial thromboplastin time (aPTT)Ordered By: Jacob Baker on 12-12-2024 aPTT.lupus sensitive Coag (PPP) [Time] Screening lupus anticoagulant-sensitive activated partial thromboplastin time (aPTT) 0.0-43.5 [facility] Serum Es-1 extractable nucle ar antibody assay (units/volume)Ordered By: Jacob Baker on 12-12-2024 Es-1 extractable nuclear Ab Qn (S) Serum Es-1 extractable nuclear antibody assay (units/volume) 0.0-0.9 [facility] Serum RPR testOrdered By: Stephany Baker on 12-12-2024 Reagin Ab RPR Ql (S) Reagin Ab [Presence ] in Serum by RPR Non Reactive [facility] Comment on above: Performed at: [facility] [employer] [id number] Director: Santy Storey PhD, Phone: [phone] Serum Sjogrens syndrome-A ex tractable nuclear antibody assay (units/volume)Ordered By: Jacob Baker on 12-12-2024 Sjogrens syndrome-A extractable nuclear Ab Qn (S) Serum Sjogrens syndrome-A extractable nuclear antibody assay (units/volume) 0.0-0.9 [facility] Serum Sjogrens syndrome-B ex tractable nuclear antibody assay (units/volume)Ordered By: Jacob Baker on 12-12-2024 Sjogrens syndrome-B extractable nuclear Ab Qn (S) Serum Sjogrens syndrome-B extractable nuclear antibody assay (units/volume) 0.0-0.9 [facility] Serum Helm extractable nucl ear antigen (HERIBERTO) antibody assay (units/volume)Ordered By: Jacob Baker on 12-12-2024 Helm extractable nuclear Ab Qn (S) Serum Helm extractable nuclear antigen (HERIBERTO) antibody assay (units/volume) 0.0-0.9 [facility] Serum aldolase measurementOr dered By: Jacob Baekr on 12-12-2024 Aldolase 4.2 U/L Normal 3.3-10.3 [facility] Comment on above: Performed at: - [facility] [address] [id number] Director: Santy Storey PhD, Phone: [phone] Result Comment: Perf ormed at: - [facility] [address] [id number] Medical Office Receptionist Assistant: Santy Storey PhD, Phone: [phone] PERFORMED BY: [facility] [address] [place] [id number] PATHOLOGIST MACHINE GUN MECHANIC CARLOS KNAPP M.D. Performed By: #### A DNA, SJOGRENS, HELM, C3, HISAB, CCP, CHROMATIN, CENTROME, RA, CYNDI, [id number], JO1, B2 GLYPROT, ANTIR, CARDIO GMA, C4, CH50 #### [facility] , Serum beta 2 glycoprotein 1 IgM antibody assay (units/volume)Ordered By: Jacob Baker on 12-12-2024 Beta 2 glycoprotein 1 IgM Qn (S) Beta 2 glycoprotein 1 IgM Ab [Units/volume] in Serum 0-32 [facility] Comment on above: Result Units: GPI Ig M unitsThe reference interval reflects a 3SD or 99th percentileinterval, which is thought to represent a potentiallyclinically significant result in accordance with theInternational Consensus Statement on the classificationcriteria for definitive antiphospholipid syndrome (APS). JThromb Haem 2006;4:295-306.Performed at: - [facility] [address] [id number] Director: Santy Storey PhD, Phone: [phone] Serum cardiolipin IgA antibo dy assay by immunoassay (units/volume)Ordered By: Jacob Baker on 12-12-2024 Cardiolipin IgA IA Qn (S) Cardiolipin IgA Ab [Units/volume] in Serum by Immunoassay 0-11 [facility] Comment on above: Negative: <12 Indete rminate: 12 - 20 Low-Med Positive: >20 - 80 High Positive: >80 Serum cardiolipin IgG antibo dy assay by immunoassay (units/volume)Ordered By: Jacob Baker on 12-12-2024 Cardiolipin IgG IA Qn (S) Cardiolipin IgG Ab [Units/volume] in Serum by Immunoassay 0-14 [facility] Comment on above: Negative: <15 Indete rminate: 15 - 20 Low-Med Positive: >20 - 80 High Positive: >80 Serum cardiolipin IgM antibo dy assay by immunoassay (units/volume)Ordered By: Jacob Baker on 12-12-2024 Cardiolipin IgM IA Qn (S) Cardiolipin IgM Ab [Units/volume] in Serum by Immunoassay 0-12 [facility] Comment on above: Negative: <13 Indete rminate: 13 - 20 Low-Med Positive: >20 - 80 High Positive: >80 Serum centromere protein B a ntibody assay (units/volume)Ordered By: Jacbo Baker on 12-12-2024 Centromere protein B Ab Qn (S) Serum centromere protein B antibody assay (units/volume) 0.0-0.9 [facility] Comment on above: Performed at: [facility] [facility] [employer] [id number] Director: Santy Storey PhD, Phone: [phone] Serum globulin measurement ( mass/volume)Ordered By: Jacob Baker on 12-12-2024 Globulin (S) [Mass/Vol] Serum globulin measurement (mass/volume) 2.2-3.9 [facility] Serum histone IgG antibody a ssay by immunoassay (units/volume)Ordered By: Jacob Baker on 12-12-2024 Histone IgG IA Qn (S) Serum histone IgG antibody assay by immunoassay (units/volume) High 0.0-0.9 [facility] Comment on above: Negative <1.0 Weak P ositive 1.0 - 1.5 Moderate Positive 1.6 - 2.5 Strong Positive >2.5Performed at: - [facility] [id number] Director: Anne Oro MD, Phone: [phone] Serum immunofixation electro phoresisOrdered By: Jacob Baker on 12-12-2024 Serum Immunofixation Comment . [facility] Comment on above: No monoclonality det ected. Serum nuclear antibody titer Ordered By: Jacob Baker on 12-12-2024 Nuclear Ab (S) [Titer] Serum nuclear ant ibody titer . [facility] Comment on above: Negative <1:80 Borde rline 1:80 Positive >1:80ICAP nomenclature: [id number]-0For more information about Hep-2 cell patterns useANApatterns.org, the official website for theInternational Consensus on Antinuclear Antibody (CYNDI)Patterns (ICAP).Performed at: [employer] [facility] [address] [id number] Director: Santy Storey PhD, Phone: [phone] Serum or plasma IgA measurem ent (mass/volume)Ordered By: Jacob Baker on 12-12-2024 IgA [Mass/Vol] IgA [Mass/volume] in Serum or Plasma 87-352 [facility] Serum or plasma IgG measurem ent (mass/volume)Ordered By: Jacob Baker on 12-12-2024 IgG [Mass/Vol] IgG [Mass/volume] in Serum or Plasma [phone] [facility] Serum or plasma IgM measurem ent (mass/volume)Ordered By: Jacob Baker on 12-12-2024 IgM [Mass/Vol] IgM [Mass/volume] in Serum or Plasma 26-217 [facility] Comment on above: Performed at: [facility] [address] [id number] Director: Santy Storey PhD, Phone: [phone] Serum or plasma albumin audie urement (mass/volume)Ordered By: Jacob Baker on 12-12-2024 Albumin [Mass/Vol] Albumin [Mass/volume ] in Serum or Plasma 2.9-4.4 [facility] Serum or plasma albumin/glob ulin mass ratioOrdered By: Jacob Baker on 12-12-2024 Albumin/Globulin [Mass ratio] Serum or plasma albumin/globulin mass ratio 0.7-1.7 [facility] Serum or plasma alpha 1 glob ulin measurement by electrophoresis (mass/volume)Ordered By: Jacob Baker on 12-12-2024 Alpha 1 globulin Elph [Mass/Vol] Serum or plasma alpha 1 globulin measurement by electrophoresis (mass/volume) 0.0-0.4 [facility] Serum or plasma alpha 2 glob ulin measurement by electrophoresis (mass/volume)Ordered By: Jacob Baker on 12-12-2024 Alpha 2 globulin Elph [Mass/Vol] Serum or plasma alpha 2 globulin measurement by electrophoresis (mass/volume) 0.4-1.0 [facility] Serum or plasma anion gap de terminationOrdered By: Jacob Baker on 12-12-2024 Anion gap [Moles/Vol] Serum or plasma an ion gap determination 6.0-15.0 [facility] Serum or plasma beta globuli n measurement by electrophoresis (mass/volume)Ordered By: Jacob Baker on 12-12-2024 Beta globulin Elph [Mass/Vol] Serum or plasma beta globulin measurement by electrophoresis (mass/volume) 0.7-1.3 [facility] Serum or plasma chromatin an tibody assay (units/volume)Ordered By: Jacob Baker on 12-12-2024 Chromatin Ab Qn Serum or plasma chromatin antibody assay (units/volume) 0.0-0.9 [facility] Serum or plasma complement C 3 measurement (mass/volume)Ordered By: Jacob Baker on 12-12-2024 Complement C3 [Mass/Vol] Serum or plasma complement C3 measurement (mass/volume) 82-167 [facility] Serum or plasma complement C 4 measurement (mass/volume)Ordered By: Jacob Baker on 12-12-2024 Complement C4 [Mass/Vol] Serum or plasma complement C4 measurement (mass/volume) 12-38 [facility] Serum or plasma cyclic adeno sine monophosphate measurement (moles/volume)Ordered By: Jacob Baker on 12-12-2024 Adenosine monophosphate.cyclic [Moles/Vol] Serum or plasma cyclic adenosine monophosphate measurement (moles/volume) 0-19 [facility] Comment on above: Negative <20 Weak po sitive 20 - 39 Moderate positive 40 - 59 Strong positive >59Performed at: [facility] [employer] [id number] Director: Santy Storey PhD, Phone: [phone] Serum or plasma gamma globul in measurement by electrophoresis (mass/volume)Ordered By: Jacob Baker on 12-12-2024 Gamma globulin Elph [Mass/Vol] Serum or plasma gamma globulin measurement by electrophoresis (mass/volume) 0.4-1.8 [facility] Serum or plasma myoglobin me asurement (mass/volume)Ordered By: Jacob Baker on 12-12-2024 Myoglobin [Mass/Vol] Serum or plasma myoglobin measurement (mass/volume) Low 25-58 [facility] Comment on above: Performed at: [employer] [place], [place] [id number] Director: Santy Storey PhD, Phone: [phone] Serum or plasma rheumatoid f actor measurement (units/volume)Ordered By: Jacob Baker on 12-12-2024 Rheumatoid factor Qn Serum or plasma rheumatoid factor measurement (units/volume) <14.0 [facility] Comment on above: Performed at: [facility] [place], [place] [id number] Director: Santy Storey PhD, Phone: [phone] Sjogrens Anti-SSA/SSBon 11-14 SS-A/Ro Sjogrens Antibody <0.2 Normal 0.0-0.9 [facility] Comment on above: Performed By: #### A DNA, SJOGRENS, HELM, C3, HISAB, CCP, CHROMATIN, CENTROME, RA, CYNDI, [id number], JO1, B2 GLYPROT, ANTIR, CARDIO GMA, C4, CH50 #### [facility] , SS-B/La Sjogrens Antibody <0.2 Normal 0.0-0.9 [facility] Comment on above: Performed By: #### A DNA, SJOGRENS, HELM, C3, HISAB, CCP, CHROMATIN, CENTROME, RA, CYNDI, [id number], JO1, B2 GLYPROT, ANTIR, CARDIO GMA, C4, CH50 #### [facility] , Sodium [Moles/volume] in Ser um or PlasmaOrdered By: Jacob Baker on 12-12-2024 Sodium [Moles/Vol] Sodium [Moles/volume ] in Serum or Plasma 136-145 [facility] Specific gravity Test strip (U) [Rel density]Ordered By: Jacob Baker on 12-12-2024 Specific gravity (U) [Rel density] Specific gravity of Urine by Test strip 1.001-1.030 [facility] Thyroid Stimulating Hormoneo n 12-12-2024 TSH Qn 0.91 m[IU]/L Normal 0.45-5.33 [facility] Comment on above: Result Comment: PERF ORMED BY: [facility] [address] [place] [address] PATHOLOGIST MACHINE GUN MECHANIC CARLOS KNAPP M.D. Performed By: #### A DNA, SJOGRENS, HELM, C3, HISAB, CCP, CHROMATIN, CENTROME, RA, CYNDI, [id number], JO1, B2 GLYPROT, ANTIR, CARDIO GMA, C4, CH50 #### [facility] , Thyrotropin [Units/volume] i n Serum or PlasmaOrdered By: Jacob Baker on 12-12-2024 TSH Qn Thyrotropin [Units/volume] in Serum or Plasma 0.45-5.33 [facility] Thyroxine (T4) free [Mass/vo lume] in Serum or PlasmaOrdered By: Jacob Baker on 12-12-2024 Free T4 [Mass/Vol] Thyroxine (T4) free [Mass/volume] in Serum or Plasma 0.61-1.12 [facility] Total hemolytic complement C H50 assayOrdered By: Jacob Baker on 12-12-2024 Total Complement (CH50) >60 U/mL >41 [facility] Comment on above: Age Male Female [...] to determine out of range values.Performed at: [facility], [place], [place] [id number] Director: Santy Storey PhD, Phone: [phone] Urea nitrogen [Mass/volume] in Serum or PlasmaOrdered By: Jacob Baker on 12-12-2024 Urea nitrogen [Mass/Vol] Urea nitrogen [Mass/volume] in Serum or Plasma 7 [facility] Urine alpha 1 globulin/total protein by electrophoresisOrdered By: Jacob Baker on 12-12-2024 Alpha 1 globulin Elph (U) [Mass fraction] Urine alpha 1 globulin/total protein by electrophoresis . [facility] Urine alpha 2 globulin/total protein ratio by electrophoresisOrdered By: Jacob Baker on 12-12-2024 Alpha 2 globulin Elph (U) [Mass fraction] Urine alpha 2 globulin/total protein ratio by electrophoresis . [facility] Urine beta globulin measurem ent by electrophoresis (mass/volume)Ordered By: Jacob Baker on 12-12-2024 Beta globulin Elph (U) [Mass/Vol] Urine beta globulin measurement by electrophoresis (mass/volume) . [facility] Urine protein measurement (m ass/volume)Ordered By: Jacob Baker on 12-12-2024 Protein (U) [Mass/Vol] Protein [Mass/vol ume] in Urine Not Estab. [facility] Comment on above: Verified by repeat analysis Urobilinogen Test strip (U) [Mass/Vol]Ordered By: Jacob Baker on 12-12-2024 Urobilinogen (U) [Mass/Vol] Urobilinogen [Mass/volume] in Urine by Test strip Normal [facility] WBC Auto (Bld) [#/Vol]Ordere d By: Jacob Baker on 12-12-2024 WBC (Bld) [#/Vol] Leukocytes [#/volume ] in Blood by Automated count 3.8-11.6 [facility] aPTT in Platelet poor plasma by Coagulation assayOrdered By: Jacob Baker on 12-12-2024 aPTT Coag (PPP) [Time] Activated partial thromboplastin time (aPTT) in platelet poor plasma by coagulation a 25.1-36.5 [facility] Comment on above: A hematocrit value g reater than 55% may lead to inaccurate results in coagulation testing. Patients having hematocrit values >55% require a special collection tube for coagulation studies. Please contact the laboratory at [phone] for redraw instructions. aPTT.lupus sensitive/aPTT.babs pus sensitive W excess phospholipid (screen to confirm raOrdered By: Jacob Baker on 12-12-2024 aPTT.lupus sensitive/aPTT.lupus sensitive W excess phospholipid Coag (PPP) [Ratio] aPTT.lupus sensitive/aPTT.lupus sensitive W excess phospholipid (screen to confirm ra 0.00-1.34 [facility] pH Test strip (U)Ordered By: Jacob Baker on 12-12-2024 pH (U) pH of Urine by Test strip 5.0-9.0 [facility] US Abdomen, Limitedon 2024 US Abdomen, [...] Snyder MD Transcribed by: MARCO Technologist: KELLY Mullins [facility] Main OR Intraoperative Recor don 11-28-2024 Main OR Intraoperative Record Main OR Intraoperative Record IntraOp Document Type FTPM Summary Primary Physician: Babar Mayers DO Finalized Date/Time: 11/28/24 10:21:25 Pt. Name: SHAZIA CHOU Valentina/Sex: 1990 Female Med Rec #: [id number] Physician: Babar Mayers DO Financial #: [id number] Pt. Type: P Room/Bed: / Admit/Disch: 11/28/24 [...] Nolvia Lehman Role Performed Surgeon - Primary Cloth Covered Helmet Puller - Primary Scrub - Primary Time In 11/28/24 10:16:00 11/28/24 10:16:00 11/28/24 10:16:00 Time Out 11/28/24 10:22:00 11/28/24 10:22:00 11/28/24 10:22:00 Procedure TRANSFORAMINAL EPIDURAL TRANSFORAMINAL EPIDURAL TRANSFORAMINAL EPIDURAL STEROID INJECTIO(Left) STEROID INJECTIO(Left) STEROID INJECTIO(Left) Comments Last Modified By: Markos LARA, Lulu Burrows RN, Lulu Mercer RN 11/28/24 10:21:12 11/28/24 10:21:12 11/28/24 10:21:12 Entry 4 Case Attendee Sofy Mix Role Performed Crawler Dragline Operator Time In 11/28/24 10:16:00 Time Out 11/28/24 [...] and tissue Entry 1 Skin Integrity Intact, [place], Warm, & Skin Abnormality No Dry Outcomes [...] Large Under (more content not included)... Normal [facility] Main OR Preoperative Recordo n 11-28-2024 Main OR Preoperative Record Main OR Preoperative Record Holding Area Document Type FTPM Summary Primary Physician: Babar Mayers DO Finalized Date/Time: 11/28/24 09:16:26 Pt. Name: SHAZIA CHOU/Sex: 1990 Female Med Rec #: [id number] Physician: Babar Mayers DO Financial #: [id number] Pt. Type: P Room/Bed: / Admit/Disch: 11/28/24 [...] 09:04 Gabrielle Sultana RN 11/28/24 09:16 Normal [facility] MRI Spine Lumbar w/o Contras ton [...] MD Transcribed by: MARCO Technologist: MANDI Normal [facility] Nonvisit Note - PTon 11-10- 025 Nonvisit Note - PT Nonvisit Note - PT -per and her insurance will not cover. Normal [facility] Nonvisit Note - PTon 11-09- 025 Nonvisit Note - PT Nonvisit Note - PT Shazia called to cancel her remaining appointments. She said per request of her doctor and insurance will not cover it Normal [facility] Nonvisit Note - PTon 025 Nonvisit Note - PT Nonvisit Note - PT - pt is having issues with her insurance and wants to figure it out first Normal [facility] XR Spine Lumbosacral Minimum 4 Viewson [...] by: Francisco Pena Transcribed by: MARCO Technologist: [facility] XR Femur Min 2 Views Lefton [...] Julio Snyder MD Transcribed by: MARCO Technologist: [facility] Nonvisit Note - PTon 025 Nonvisit Note - PT Nonvisit Note - PT Chart reviewed with eval prepped for scheduled eval. [facility] ED Clinical Summaryon 2024 ED Clinical Summary ED Clinical Summary [place] [id number] ED Clinical Summary Person Information Name: SHAZIA CHOU [place] Age: 33 Years : 1990 Sex: Female Language: Sudanese PCP: KURT BALBUENA CNP Marital Status: MRN: [...] 10/18/2024 08:40:02 10/18/2024 08:40:02 10/18/2024 08:40:02 ADDRESS: [address] [place] [phone] PHYS DOC NOTES: MEDICAL INFORMATION: Prescriptions Given: New Medications [id number], [address], [place] [id number], [phone] methocarbamol (Robaxin-750 oral tablet) 2 Tablets By [...] Follow up: With: Address: When: KURT BALBUENA [address] [place] [phone] Business (1) In 3 days 10/21/2024 DIAGNOSIS: Chronic pain Normal [facility] ED Note-Physicianon 10-18-19 25 ED Note-Physician ED Note-Physician Basic Information Time Seen: Beto Shea PA-C 10/18/2024 08:20 Chief Complaint Pt reports lower back pain and left leg pain. Pt reports she has seen multiple doctors and no one can figure out what is oging on. Pain since gi. Has seen PCP, Standard ED, Neuro. EMG and CTA of head/neck [...] day(s), # 18 tab(s), Refills(s) 0, Pharmacy: [id number], 170, cm, 10/18/24 8:12:00 EST, Height/Length Dosing, 90, kg, 10/18/24 8:12:00 EST, Weight Dosing predniSONE, 60 mg = 3 tab(s), Oral, Daily, X 7 day(s), # 21 tab(s), Refills(s) 0, Pharmacy: [id number], 170, cm, 10/18/24 8:12:00 EST, Height/Length [...] KURT BALBUENA In 3 days 10/21/[address] [place] [phone] Business (1) Additional Instructions: Patient Education [...] made to ensure accuracy, however, inadvertently computerized oyster buyer mistakes may be present. Appropriate healthcare PPE [...] Procedure/Surgical H (more content not included)... Normal [facility] Comment on above: Result Comment: Elec tronically Signed By: Beto Shea PA-C\.br\Date and Time Signed: 10/18/24 09:04 EST\.br\Electronically Co-Signed By: Jose Correia M.D.\.br\Date and Time Co-Signed: 10/18/24 09:07 EST ED Patient Summaryon 025 ED Patient Summary ED Patient Summary [address] [address] Patient Discharge Instructions Person Information Name: SHAZIA CHOU Age: 33 Years Arrival Date: 10/18/2024 08:04:01 Discharge Diagnosis: Chronic pain Primary Care Physician: KURT BALBUENA CNP Provider Information Primary Provider: Jose Correia M.D. [employer] Manager:Beto Shea PA-C The exam and treatment you received in the Emergency Department were for an urgent problem and are not intended as complete care. It is important that you follow up with a doctor, nurse practitioner, or physician???s senior executive assistant for ongoing care. If your symptoms become worse or you do not improve as expected and you are unable to reach your usual health care provider, you should return to the Emergency Department. We are available 24 hours a day. CASSIASHAZIA MALDONADO has been given the following list of patient education materials, prescriptions and follow-up instructions: Follow-up Instructions: With: Address: When: KURT BALBUENA [address] [place] [phone] Business (1) In 3 days 10/21/2024 In the event that this physician does not participate in your insurance network, please consult with your insurance company to find a nearby participating provider. Patient Education Materials: Chronic Pain, Adult A MESSAGE TO ALL PATIENTS REGARDING OPIOIDS PRESCRIPTION OPIOIDS: WHAT YOU NEED TO KNOW Prescription opioids can be used to help relieve ttalcsgq-ks-iopchu pain and are often prescribed following a [...] care professio (more content not included)... Normal [facility] Ambulatory Visit Summaryon 0 10-14-2024 Ambulatory [...] AM EST With: KURT BALBUENA CNP Where: [place] [address]- Medications What How Much When Why Instructions [...] choosing us for your care. Romeo Mullins [facility] Family Medicine Office/Clini c Noteon 10-14-2024 Family Medicine Office/Clinic Note Family Medicine Office/Clinic Note Chief Complaint Pain follow up HPI Staff Pt presents today for 2wk follow up to chronic pain. Treated w/gabapentin 100mg. Pt denies relief from pain with med. Brain MRI? Has not scheduled yet due to rescheduling on pt's end. Rheumatoid factor ordered last encounter. NEG (done @ [facility]) Referred to [facility]. Did see, but waiting for MRI brain results. PHQ9: 14 Does see psychiatrist. Concerned she may have Raynaud's. 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 History of Present Illness 33 year old [...] states she has a f/u appointment with [facility] on 10/20/2024. She reports left-sided back pain [...] TID, # 90 cap(s), Refills(s) 0, Pharmacy: [facility]/pharmacy #[id number], 170, cm, 10/14/24 9:02:00 EST, Height/Length Dosing, 90.2, kg, 10/14/24 9:02:00 EST, Weight Dosing 2. Raynaud phenomenon (I73.00: Raynaud's syndrome without gangrene) Ordered: [facility] External Ambulatory Referral 3. Alcohol abuse, uncomplicated [...] KURT BALBUENA CNP, FAM Within 6 weeks [address] [place] [address] Business (1) Additional Instructions: Chronic pain syndrome Patient Education Binge-Drinking Information, Adult Problem List/Past Medical History Ongoing Alcohol abuse, uncomplicated Bipolar disorder BMI 31.0-31.9,adult Borderline personality disorder Chronic pain syndrome History of bypass of stomach Hypertension Iron deficiency anemia Left breast mass Muscle weakness-general Obesity (BMI 30-39.9) Overweight (BMI 25.0 (more content not included)... Normal [facility] Comment on [...] . Pt is currently using Naltrexone. 06/09/2023 [facility] ED Note: HPI- The patient states that [...] drug abuse. This was an error. 09/16/2024 [facility] Records (page 11): Office Visit dated 06/16/2024- [...] feel free to contact me at extension [phone]. Lina Chirinos LPN Clinical Mine Analyst [place] [address] Extension: [phone] [email or web address] From: KURT BALBUENA CNP To: Lina Chirinos; Sent: 10/14/2024 09:24:40 EST Subject: RE: Pre-Visit Planning Caller Name: JOSÉ ANTONIO SHAZIA L; Caller Number: , M Dx of alcohol abuse, uncomplicated added to the visit dx and chronic list- The following in in the patient's plan- Monitor for s/sx of alcohol dependence Recheck Vitamin B, folate, TIBC, Ferritin, Magnesium, phosphate, & zinc annually Encouraged to limit alcohol consumption to 4-6 ounces when she drinks Encouraged to continue with counseling f/u in 4-6 weeks Normal [facility] Ambulatory Visit Summaryon 0 09-30-2024 Ambulatory [...] AM EST With: KURT BALBUENA CNP Where: [place] [address]- Medications What How Much When Why Instructions New gabapentin (gabapentin 100 mg Cap) 1 Capsules By Mouth 3 times a day Chronic pain syndrome Pickup at [facility]/pharmacy #[id number] Unchanged acetaminophen (Tylenol) 325 Milligram By [...] Once a day (at bedtime) Pharmacy Information [facility]/pharmacy #[id number]: [address], [place] [id number] [phone] Allergies Abilify (suicidal) BuSpar (palpitations) Coconut Oil [...] for choosing us for your care. Normal [facility] Family Medicine Office/Clini c Noteon 09-30-2024 Family [...] her previous pcp in July, to the [facility] ED on 09/05/2024 and again on 09/11/2024. She was seen by a provider at [facility] on 09/05/2024 and additional laboratory testing was [...] syndrome) Reviewed notes and laboratory results from [facility] Awaiting results from the Rheumatoid factor & [facility] Awaiting consult information form [facility] MRI scheduled for Thursday f/u in 2 weeks Ordered: gabapentin, 100 mg = 1 cap(s), Oral, TID, # 90 cap(s), Refills(s) 0, Pharmacy: [facility]/pharmacy #[id number], 170, cm, 09/30/24 9:53:00 EST, Height/Length [...] Tab gabapen (more content not included)... Normal [facility] Comment on above: Result Comment: Elec tronically Signed By: KURT BALBUENA CNP\.david\Date and Time Signed: 09/30/24 10:29 EST Vit Aon 09-29-2024 Retinol [Mass/Vol] 68.4 microgram/dL High 18.9-57.3 [facility] Comment on above: [...] the Food and Drug Administration. Performed at: [address] [id number] MD Shorty Rodríguez Performed By: #### 1 [id number] ####[facility] [address] [place] [address] EMG 2 Extremitieson 09-27-19 25 Normal [facility] upper and lower extremity [facility] Family Medicine Office/Clini c Noteon 09-27-2024 Family Medicine Office/Clinic Note Family Medicine Office/Clinic Note [facility] Staff Shazia is a 33 year old [...] virus vaccine, inactivated 07/09/2020 Recorded Normal [facility] Comment on above: Result Comment: Elec tronically Signed By: KURT BALBUENA CNP\.david\Date and Time Signed: 09/27/24 12:39 EST NVC 11-12 Nerveson Normal EMG of the le ft upper and lower extremity [facility] ALL MYOGLOBINon 09-21-2024 Myoglobin [Mass/Vol] 33 ng/mL 9 - 82 ng/mL NO [facility] ALL THYROID STIM HORMONEon 0 09-21-2024 TSH Qn 1.268 m[IU]/L [facility] No Panel Informationon 09-21 [facility] Ambulatory Visit Summaryon 0 09-20-2024 [...] for choosing us for your care. Normal [facility] CHEMISTRYOrdered By: SYSTEM SYSTEM on 09-20-2024 [...] for a full Vitamin panel. [facility] Gave magnesium pill 1 pill [...] the ED. She reports she went to [facility] and it was recommended that she be [...] Folate Level Iron Level Lab Specimen Collect [id number] Magnesium Level TIBC Calculated Vitamin A Level [...] fasciotomy (06/02/ (more content not included)... Normal [facility] Comment on above: Result Comment: Elec tronically Signed By: KURT BALBUENA CNP\.br\Date and Time Signed: 09/20/24 11:15 EST Ferritinon 09-20-2024 Ferritin [Mass/Vol] 10 ng/mL Low 11-307 [facility] Comment on above: Performed By: #### 2 [id number] #### [facility] [address] [place] [address] Folateon 09-20-2024 Folate [Mass/Vol] ng/mL Normal >=6.7 [facility] Comment on above: Performed By: #### 2 [id number] #### [facility] [address] [place] [address] Ironon 09-20-2024 Iron [Mass/Vol] 124 microgram/dL Normal 35-153 [facility] Comment on above: Performed By: #### 2 [id number] #### [facility] [address] [place] [address] Magnesiumon 09-20-2024 Magnesium [Mass/Vol] 2.2 mg/dL Normal 1.3-2.4 [facility] Comment on above: Performed By: #### 2 [id number] #### [facility] [address] [place] [address] TIBC Calculatedon 09-20-2024 Iron binding capacity [Mass/Vol] 455 microgram/dL High 250-400 [facility] Comment on above: Performed By: #### 1 [id number] #### [facility] [address] [place] [address] Transferrin [Mass/Vol] 325 mg/dL Normal 200-370 [facility] Comment on above: Performed By: #### 1 [id number] #### [facility] [address] [place] [address] Vit B12on 09-20-2024 Cobalamin (Vitamin B12) [Mass/Vol] 626 pg/mL Normal 50-1500 [facility] Comment on above: Performed By: #### 2 [id number] #### [facility] [address] [place] [address] Vitamin D 25 Hydroxyon 09-20 25-hydroxyvitamin D3 [Mass/Vol] 43.7 ng/mL Normal 30.0-100.0 [facility] Comment on above: Performed By: #### 5 [id number] #### [facility] [address] [place] [address] Alanine aminotransferase [En zymatic activity/volume] in Serum or PlasmaOrdered By: Sailaja Anderson on 09-15-2024 ALT [Catalytic activity/Vol] Alanine aminotransferase [Enzymatic activity/volume] in Serum or Plasma 7-52 [facility] Albumin [Mass/volume] in Ser um or Plasma by Bromocresol green (BCG) dye binding methoOrdered By: Sailaja Anderson on 09-15-2024 Albumin BCG dye [Mass/Vol] Albumin [Mass/volume] in Serum or Plasma by Bromocresol green (BCG) dye binding metho 3.5-5.7 [facility] Alkaline phosphatase [Enzyma tic activity/volume] in Serum or PlasmaOrdered By: Sailaja Anderson on 09-15-2024 ALP [Catalytic activity/Vol] Alkaline phosphatase [Enzymatic activity/volume] in Serum or Plasma 34-104 [facility] Amphetamine Screen Ql (U)Ord ered By: Sailaja Anderson on 09-15-2024 Amphetamines Ql (U) Amphetamines screen Negativ e [facility] Appearance of UrineOrdered B y: Sailaja Anderson on 09-15-2024 Appearance (U) Urine appearance [facility] Aspartate aminotransferase [ Enzymatic activity/volume] in Serum or PlasmaOrdered By: Sailaja Anderson on 09-15-2024 AST [Catalytic activity/Vol] Aspartate aminotransferase [Enzymatic activity/volume] in Serum or Plasma 13-39 [facility] Bacteria [Presence] in Urine by AutomatedOrdered By: Sailaja Anderson on 09-15-2024 Bacteria Auto Ql (U) Bacteria [Presence] in Urine by Automated None Seen [facility] Barbiturates [Presence] in U rine by Screen methodOrdered By: Sailaja Anderson on 09-15-2024 Barbiturates Screen Ql (U) Barbiturates [Presence] in Urine by Screen method Negative [facility] Basophils Auto (Bld) [#/Vol] Ordered By: Sailaja Anderson on 09-15-2024 Basophils (Bld) [#/Vol] Automated basophil count 0.0-0.2 [facility] Basophils/100 WBC Auto (Bld) Ordered By: Sailaja Anderson on 09-15-2024 Basophils/100 WBC (Bld) Automated basophil % . [facility] Benzodiazepines Screen Ql (U )Ordered By: Sailaja Anderson on 09-15-2024 Benzodiazepines Ql (U) Benzodiazepines [Presence] in Urine by Screen method Negative [facility] Benzoylecgonine [Presence] i n Urine by Screen methodOrdered By: Sailaja Anderson on 09-15-2024 Benzoylecgonine Screen Ql (U) Benzoylecgonine [Presence] in Urine by Screen method Negative [facility] Bilirubin Test strip Ql (U)O rdered By: Sailaja Anderson on 09-15-2024 Bilirubin Ql (U) Bilirubin.total [Presence] in Urine by Test strip Negative [facility] Bilirubin.total [Mass/volume ] in Serum or PlasmaOrdered By: Sailaja Anderson on 09-15-2024 Bilirubin [Mass/Vol] Bilirubin.total [Mass/volume] in Serum or Plasma 0.3-1.[address] [facility] [address] angio headon 09-15-2024 [place] [address] CT Scan Report Signed Patient: Shazia Chou MR#: [id number] : 1990 Acct:[id number] Age/Sex: 33 / F ADM Date: 09/15/24 Loc: ER Room: Type: [facility] ER Attending Dr: Copies to: Sailaja Anderson APRN Ordering Provider: Sailaja Anderson APRN Date of Service: 09/15/24 CT/CT angio head: weakness ([id number]) CT/CT angio neck: weakness ([id number]) CT/CT head/brain wo con: weakness CT head/brain [...] Wiley Shetty M.D.09/15/2024 3:56 PM Dictation Location: [place] [address] Transcribed By: PWS 09/15/24 [id number] Dictated By: Wiley Shetty II, MD 09/15/24 1546 Signed By: 09/15/24 1556 Normal [facility] Calcium [Mass/volume] in Ser um or PlasmaOrdered By: Sailaja Anderson on 09-15-2024 Calcium [Mass/Vol] Calcium [Mass/volume ] in Serum or Plasma 8.6-10.3 [facility] Cannabinoids [Presence] in U rine by Screen methodOrdered By: Sailaja Anderson on 09-15-2024 Cannabinoids Screen Ql (U) Cannabinoids [Presence] in Urine by Screen method Negative [facility] Comment on above: These are unconfirme [...] l [Moles/volume] in Serum or Plasma 21.0-31.0 [facility] Chloride [Moles/volume] in S tushar or PlasmaOrdered By: Sailaja Anderson on 09-15-2024 Chloride [Moles/Vol] Chloride [Moles/vol ume] in Serum or Plasma 98-107 [facility] Color Auto (U)Ordered By: Scott Anderson on 09-15-2024 Color (U) Color of Urine by Auto Yellow [facility] Complete Blood Count Auto Di ffon 09-15-2024 Basophils (Bld) [#/Vol] 0.1 10*3/uL Normal 0.0-0.2 [facility] Comment on above: Result Comment: PERF ORMED BY: [facility] [address] [place] [address] PATHOLOGIST MACHINE [employer]CH[employer]IC CARLOS KNAPP M.D. Performed By: #### A DNA, SJOGRENS, HELM, C3, HISAB, CCP, CHROMATIN, CENTROME, RA, CYNDI, [id number], JO1, B2 GLYPROT, ANTIR, CARDIO GMA, C4, CH50 #### [facility] , Basophils/100 WBC (Bld) 0.7 % Normal . [facility] Comment on above: Performed By: #### A DNA, SJOGRENS, HELM, C3, HISAB, CCP, CHROMATIN, CENTROME, RA, CYNDI, [id number], JO1, B2 GLYPROT, ANTIR, CARDIO GMA, C4, CH50 #### [facility] , Eosinophils (Bld) [#/Vol] 0.2 10*3/uL Normal 0.0-0.45 [facility] Comment on above: Performed By: #### A DNA, SJOGRENS, HELM, C3, HISAB, CCP, CHROMATIN, CENTROME, RA, CYNDI, [id number], JO1, B2 GLYPROT, ANTIR, CARDIO GMA, C4, CH50 #### [facility] , Eosinophils/100 WBC (Bld) 2.4 % Normal . [facility] Comment on above: Performed By: #### A DNA, SJOGRENS, HELM, C3, HISAB, CCP, CHROMATIN, CENTROME, RA, CYNDI, [id number], JO1, B2 GLYPROT, ANTIR, CARDIO GMA, C4, CH50 #### [facility] , Erythrocyte distribution width (RBC) [Ratio] 16.9 % High 11.9-15.3 [facility] Comment on above: Performed By: #### A DNA, SJOGRENS, HELM, C3, HISAB, CCP, CHROMATIN, CENTROME, RA, CYNDI, [id number], JO1, B2 GLYPROT, ANTIR, CARDIO GMA, C4, CH50 #### [facility] , Hematocrit (Bld) [Volume fraction] 35.6 % Normal 34.0-46.4 [facility] Comment on above: Performed By: #### A DNA, SJOGRENS, HELM, C3, HISAB, CCP, CHROMATIN, CENTROME, RA, CYNDI, [id number], JO1, B2 GLYPROT, ANTIR, CARDIO GMA, C4, CH50 #### [facility] , Hemoglobin (Bld) [Mass/Vol] 12.1 g/dL Normal 11.8-15.4 [facility] Comment on above: Performed By: #### A DNA, SJOGRENS, HELM, C3, HISAB, CCP, CHROMATIN, CENTROME, RA, CYNDI, [id number], JO1, B2 GLYPROT, ANTIR, CARDIO GMA, C4, CH50 #### [facility] , Lymphocytes (Bld) [#/Vol] 2.3 10*3/uL Normal 1.00-4.8 [facility] Comment on above: Performed By: #### A DNA, SJOGRENS, HELM, C3, HISAB, CCP, CHROMATIN, CENTROME, RA, CYNDI, [id number], JO1, B2 GLYPROT, ANTIR, CARDIO GMA, C4, CH50 #### [facility] , Lymphocytes/100 WBC (Bld) 26.3 % Normal . [facility] Comment on above: Performed By: #### A DNA, SJOGRENS, HELM, C3, HISAB, CCP, CHROMATIN, CENTROME, RA, CYNDI, [id number], JO1, B2 GLYPROT, ANTIR, CARDIO GMA, C4, CH50 #### [facility] , MCH (RBC) [Entitic mass] 32.5 pg Normal 24.7-34.3 [facility] Comment on above: Performed By: #### A DNA, SJOGRENS, HELM, C3, HISAB, CCP, CHROMATIN, CENTROME, RA, CYNDI, [id number], JO1, B2 GLYPROT, ANTIR, CARDIO GMA, C4, CH50 #### [facility] , MCV (RBC) [Entitic vol] 96.0 fL Normal 80-100 [facility] Comment on above: Performed By: #### A DNA, SJOGRENS, HELM, C3, HISAB, CCP, CHROMATIN, CENTROME, RA, CYNDI, [id number], JO1, B2 GLYPROT, ANTIR, CARDIO GMA, C4, CH50 #### [facility] , Mean Corpuscular HGB Conc 33.9 g/dL Normal 32.0-35.0 [facility] Comment on above: Performed By: #### A DNA, SJOGRENS, HELM, C3, HISAB, CCP, CHROMATIN, CENTROME, RA, CYNDI, [id number], JO1, B2 GLYPROT, ANTIR, CARDIO GMA, C4, CH50 #### [facility] , Monocytes (Bld) [#/Vol] 0.7 10*3/uL Normal 0.0-0.8 [facility] Comment on above: Performed By: #### A DNA, SJOGRENS, HELM, C3, HISAB, CCP, CHROMATIN, CENTROME, RA, CYNDI, [id number], JO1, B2 GLYPROT, ANTIR, CARDIO GMA, C4, CH50 #### [facility] , Monocytes/100 WBC (Bld) 17.55 % Normal 0.00-20.00 [facility] Comment on above: Performed By: #### A DNA, SJOGRENS, HELM, C3, HISAB, CCP, CHROMATIN, CENTROME, RA, CYNDI, [id number], JO1, B2 GLYPROT, ANTIR, CARDIO GMA, C4, CH50 #### [facility] , Monocytes/100 WBC (Bld) 7.8 % Normal . [facility] Comment on above: Performed By: #### A DNA, SJOGRENS, HELM, C3, HISAB, CCP, CHROMATIN, CENTROME, RA, CYNDI, [id number], JO1, B2 GLYPROT, ANTIR, CARDIO GMA, C4, CH50 #### [facility] , Neutrophils (Bld) [#/Vol] 5.4 10*3/uL Normal 1.8-7.7 [facility] Comment on above: Performed By: #### A DNA, SJOGRENS, HELM, C3, HISAB, CCP, CHROMATIN, CENTROME, RA, CYNDI, [id number], JO1, B2 GLYPROT, ANTIR, CARDIO GMA, C4, CH50 #### [facility] , Neutrophils/100 WBC (Bld) 62.8 % Normal . [facility] Comment on above: Performed By: #### A DNA, SJOGRENS, HELM, C3, HISAB, CCP, CHROMATIN, CENTROME, RA, CYNDI, [id number], JO1, B2 GLYPROT, ANTIR, CARDIO GMA, C4, CH50 #### [facility] , NRBC% 0.1 /100{WBC} Normal 0-0.5 [facility] Comment on above: Performed By: #### A DNA, SJOGRENS, HELM, C3, HISAB, CCP, CHROMATIN, CENTROME, RA, CYNDI, [id number], JO1, B2 GLYPROT, ANTIR, CARDIO GMA, C4, CH50 #### [facility] , Platelet mean volume (Bld) [Entitic vol] 9.2 fL Normal 6.3-10.7 [facility] Comment on above: Performed By: #### A DNA, SJOGRENS, HELM, C3, HISAB, CCP, CHROMATIN, CENTROME, RA, CYNDI, [id number], JO1, B2 GLYPROT, ANTIR, CARDIO GMA, C4, CH50 #### [facility] , Platelets (Bld) [#/Vol] 292 10*3/uL Normal 150-450 [facility] Comment on above: Performed By: #### A DNA, SJOGRENS, HELM, C3, HISAB, CCP, CHROMATIN, CENTROME, RA, CYNDI, [id number], JO1, B2 GLYPROT, ANTIR, CARDIO GMA, C4, CH50 #### [facility] , RBC (Bld) [#/Vol] 3.71 10*6/uL Normal 3.60-5.00 [facility] Comment on above: Performed By: #### A DNA, SJOGRENS, HELM, C3, HISAB, CCP, CHROMATIN, CENTROME, RA, CYNDI, [id number], JO1, B2 GLYPROT, ANTIR, CARDIO GMA, C4, CH50 #### [facility] , WBC (Bld) [#/Vol] 8.6 10*3/uL Normal 3.8-11.6 [facility] Comment on above: Performed By: #### A DNA, SJOGRENS, HELM, C3, HISAB, CCP, CHROMATIN, CENTROME, RA, CYNDI, [id number], JO1, B2 GLYPROT, ANTIR, CARDIO GMA, C4, CH50 #### [facility] , Comprehensive Metabolic Pane jak 09-15-2024 Albumin [Mass/Vol] 3.8 g/dL Normal 3.5-5.7 [facility] Comment on above: Performed By: #### A DNA, SJOGRENS, HELM, C3, HISAB, CCP, CHROMATIN, CENTROME, RA, CYNDI, [id number], JO1, B2 GLYPROT, ANTIR, CARDIO GMA, C4, CH50 #### [facility] , Albumin/Globulin [Mass ratio] 1.5 {ratio} Normal [facility] Comment on above: Performed By: #### A DNA, SJOGRENS, HELM, C3, HISAB, CCP, CHROMATIN, CENTROME, RA, CYNDI, [id number], JO1, B2 GLYPROT, ANTIR, CARDIO GMA, C4, CH50 #### [facility] , ALP [Catalytic activity/Vol] 53 U/L Normal 34-104 [facility] Comment on above: Performed By: #### A DNA, SJOGRENS, HELM, C3, HISAB, CCP, CHROMATIN, CENTROME, RA, CYNDI, [id number], JO1, B2 GLYPROT, ANTIR, CARDIO GMA, C4, CH50 #### [facility] , ALT [Catalytic activity/Vol] 15 U/L Normal 7-52 [facility] Comment on above: Performed By: #### A DNA, SJOGRENS, HELM, C3, HISAB, CCP, CHROMATIN, CENTROME, RA, CYNDI, [id number], JO1, B2 GLYPROT, ANTIR, CARDIO GMA, C4, CH50 #### [facility] , Anion gap [Moles/Vol] 8.3 mmol/L Normal 6.0-15.0 [facility] Comment on above: Performed By: #### A DNA, SJOGRENS, HELM, C3, HISAB, CCP, CHROMATIN, CENTROME, RA, CYNDI, [id number], JO1, B2 GLYPROT, ANTIR, CARDIO GMA, C4, CH50 #### [facility] , AST [Catalytic activity/Vol] 16 U/L Normal 13-39 [facility] Comment on above: Performed By: #### A DNA, SJOGRENS, HELM, C3, HISAB, CCP, CHROMATIN, CENTROME, RA, CYNDI, [id number], JO1, B2 GLYPROT, ANTIR, CARDIO GMA, C4, CH50 #### [facility] , Bilirubin [Mass/Vol] 0.3 mg/dL Normal 0.3-1.0 [facility] Comment on above: Performed By: #### A DNA, SJOGRENS, HELM, C3, HISAB, CCP, CHROMATIN, CENTROME, RA, CYNDI, [id number], JO1, B2 GLYPROT, ANTIR, CARDIO GMA, C4, CH50 #### [facility] , Calcium [Mass/Vol] 9.0 mg/dL Normal 8.6-10.3 [facility] Comment on above: Performed By: #### A DNA, SJOGRENS, HELM, C3, HISAB, CCP, CHROMATIN, CENTROME, RA, YCNDI, [id number], JO1, B2 GLYPROT, ANTIR, CARDIO GMA, C4, CH50 #### [facility] , Chloride [Moles/Vol] 107 mmol/L Normal 98-107 [facility] Comment on above: Performed By: #### A DNA, SJOGRENS, HELM, C3, HISAB, CCP, CHROMATIN, CENTROME, RA, CYDNI, [id number], JO1, B2 GLYPROT, ANTIR, CARDIO GMA, C4, CH50 #### [facility] , CO2 [Moles/Vol] 26.2 mmol/L Normal 21.0-31.0 [facility] Comment on above: Performed By: #### A DNA, SJOGRENS, HELM, C3, HISAB, CCP, CHROMATIN, CENTROME, RA, CYNDI, [id number], JO1, B2 GLYPROT, ANTIR, CARDIO GMA, C4, CH50 #### [facility] , Creatinine [Mass/Vol] 0.57 mg/dL Low 0.60-1.20 [facility] Comment on above: Performed By: #### A DNA, SJOGRENS, HELM, C3, HISAB, CCP, CHROMATIN, CENTROME, RA, CYNDI, [id number], JO1, B2 GLYPROT, ANTIR, CARDIO GMA, C4, CH50 #### [facility] , Creatinine Clr Calc Pharmacy 157.80 Normal [facility] Comment on above: Performed By: #### A DNA, SJOGRENS, HELM, C3, HISAB, CCP, CHROMATIN, CENTROME, RA, CYNDI, [id number], JO1, B2 GLYPROT, ANTIR, CARDIO GMA, C4, CH50 #### [facility] , GFR/1.73 sq M.predicted MDRD (S/P/Bld) [Vol rate/Area] mL/min/{1.73_m2} Normal [facility] Comment on above: Performed By: #### A DNA, SJOGRENS, HELM, C3, HISAB, CCP, CHROMATIN, CENTROME, RA, CYNDI, [id number], JO1, B2 GLYPROT, ANTIR, CARDIO GMA, C4, CH50 #### [facility] , Globulin (S) [Mass/Vol] 2.6 g/dL Normal [facility] Comment on above: Performed By: #### A DNA, SJOGRENS, HELM, C3, HISAB, CCP, CHROMATIN, CENTROME, RA, CYNDI, [id number], JO1, B2 GLYPROT, ANTIR, CARDIO GMA, C4, CH50 #### [facility] , Glucose [Mass/Vol] 87 mg/dL Normal 70-100 [facility] Comment on above: Result Comment: [facility] Glucose Reference Range is dependent on time and content of last meal. Glucose of more than 200 mg/dL in a nonstressed, ambulatory subject supports the diagnosis of Diabetes Mellitus. ADA recommended reference range Performed By: #### A DNA, SJOGRENS, HELM, C3, HISAB, CCP, CHROMATIN, CENTROME, RA, CYNDI, [id number], JO1, B2 GLYPROT, ANTIR, CARDIO GMA, C4, CH50 #### [facility] , Potassium [Moles/Vol] 3.5 mmol/L Normal 3.5-5.1 [facility] Comment on above: Performed By: #### A DNA, SJOGRENS, HELM, C3, HISAB, CCP, CHROMATIN, CENTROME, RA, CYNDI, [id number], JO1, B2 GLYPROT, ANTIR, CARDIO GMA, C4, CH50 #### [facility] , Protein [Mass/Vol] 6.4 g/dL Normal 6.4-8.9 [facility] Comment on above: Performed By: #### A DNA, SJOGRENS, HELM, C3, HISAB, CCP, CHROMATIN, CENTROME, RA, CYNDI, [id number], JO1, B2 GLYPROT, ANTIR, CARDIO GMA, C4, CH50 #### [facility] , Sodium [Moles/Vol] 138 mmol/L Normal 136-145 [facility] Comment on above: Performed By: #### A DNA, SJOGRENS, HELM, C3, HISAB, CCP, CHROMATIN, CENTROME, RA, CYNDI, [id number], JO1, B2 GLYPROT, ANTIR, CARDIO GMA, C4, CH50 #### [facility] , Urea nitrogen [Mass/Vol] 6 mg/dL Low 7-25 [facility] Comment on above: Performed By: #### A DNA, SJOGRENS, HELM, C3, HISAB, CCP, CHROMATIN, CENTROME, RA, CYNDI, [id number], JO1, B2 GLYPROT, ANTIR, CARDIO GMA, C4, CH50 #### [facility] , Creatinine [Mass/volume] in Serum or PlasmaOrdered By: Sailaja Anderson on 09-15-2024 Creatinine [Mass/Vol] Creatinine [Mass/volume] in Serum or Plasma Low 0.60-1.20 [facility] Dipstick and Microscopicon 0 09-15-2024 Appearance (U) Clear Normal Clear [facility] Comment on above: Order Comment: Name Collection Type:: Clean-Voided Midstream Performed By: #### A DNA, SJOGRENS, HELM, C3, HISAB, CCP, CHROMATIN, CENTROME, RA, CYNDI, [id number], JO1, B2 GLYPROT, ANTIR, CARDIO GMA, C4, CH50 #### [facility] , Bacteria,Urine None Seen Normal None Seen [facility] Comment on above: Order Comment: Name Collection Type:: Clean-Voided Midstream Performed By: #### A DNA, SJOGRENS, HELM, C3, HISAB, CCP, CHROMATIN, CENTROME, RA, CYNDI, [id number], JO1, B2 GLYPROT, ANTIR, CARDIO GMA, C4, CH50 #### [facility] , Bilirubin,Urine Negative Normal Negative [facility] Comment on above: Order Comment: Name Collection Type:: Clean-Voided Midstream Performed By: #### A DNA, SJOGRENS, HELM, C3, HISAB, CCP, CHROMATIN, CENTROME, RA, CYNDI, [id number], JO1, B2 GLYPROT, ANTIR, CARDIO GMA, C4, CH50 #### [facility] , Color (U) Yellow Normal Yellow [facility] Comment on above: Order Comment: Name Collection Type:: Clean-Voided Midstream Performed By: #### A DNA, SJOGRENS, HELM, C3, HISAB, CCP, CHROMATIN, CENTROME, RA, CYNDI, [id number], JO1, B2 GLYPROT, ANTIR, CARDIO GMA, C4, CH50 #### [facility] , Glucose Ql (U) Normal Normal Normal [facility] Comment on above: Order Comment: Name Collection Type:: Clean-Voided Midstream Performed By: #### A DNA, SJOGRENS, HELM, C3, HISAB, CCP, CHROMATIN, CENTROME, RA, CYNDI, [id number], JO1, B2 GLYPROT, ANTIR, CARDIO GMA, C4, CH50 #### [facility] , Hyaline Casts,Urine None Normal 0-[address] [facility] Comment on above: Order Comment: Name Collection Type:: Clean-Voided Midstream Performed By: #### A DNA, SJOGRENS, HELM, C3, HISAB, CCP, CHROMATIN, CENTROME, RA, CYNDI, [id number], JO1, B2 GLYPROT, ANTIR, CARDIO GMA, C4, CH50 #### [facility] , Ketones Ql (U) 1+ High Negative [facility] Comment on above: Order Comment: Name Collection Type:: Clean-Voided Midstream Performed By: #### A DNA, SJOGRENS, HELM, C3, HISAB, CCP, CHROMATIN, CENTROME, RA, CYNDI, [id number], JO1, B2 GLYPROT, ANTIR, CARDIO GMA, C4, CH50 #### [facility] , Leukocyte esterase Test strip Ql (U) Negative Normal Negative [facility] Comment on above: Order Comment: Name Collection Type:: Clean-Voided Midstream Performed By: #### A DNA, SJOGRENS, HELM, C3, HISAB, CCP, CHROMATIN, CENTROME, RA, CYNDI, [id number], JO1, B2 GLYPROT, ANTIR, CARDIO GMA, C4, CH50 #### [facility] , Mucus,Urine Rare Normal [facility] Comment on above: Order Comment: Name Collection Type:: Clean-Voided Midstream Performed By: #### A DNA, SJOGRENS, HELM, C3, HISAB, CCP, CHROMATIN, CENTROME, RA, CYNDI, [id number], JO1, B2 GLYPROT, ANTIR, CARDIO GMA, C4, CH50 #### [facility] , Nitrite,Urine Negative Normal Negative [facility] Comment on above: Order Comment: Name Collection Type:: Clean-Voided Midstream Performed By: #### A DNA, SJOGRENS, HELM, C3, HISAB, CCP, CHROMATIN, CENTROME, RA, CYDNI, [id number], JO1, B2 GLYPROT, ANTIR, CARDIO GMA, C4, CH50 #### [facility] , Occult Blood,Urine Negative Normal Negative [facility] Comment on above: Order Comment: Name Collection Type:: Clean-Voided Midstream Performed By: #### A DNA, SJOGRENS, HELM, C3, HISAB, CCP, CHROMATIN, CENTROME, RA, CYNDI, [id number], JO1, B2 GLYPROT, ANTIR, CARDIO GMA, C4, CH50 #### [facility] , pH (U) 7.0 [pH] Normal 5.0-9.0 [facility] Comment on above: Order Comment: Name Collection Type:: Clean-Voided Midstream Performed By: #### A DNA, SJOGRENS, HELM, C3, HISAB, CCP, CHROMATIN, CENTROME, RA, CYNDI, [id number], JO1, B2 GLYPROT, ANTIR, CARDIO GMA, C4, CH50 #### [facility] , Protein,Urine Trace High Negative [facility] Comment on above: Order Comment: Name Collection Type:: Clean-Voided Midstream Performed By: #### A DNA, SJOGRENS, HELM, C3, HISAB, CCP, CHROMATIN, CENTROME, RA, CYNDI, [id number], JO1, B2 GLYPROT, ANTIR, CARDIO GMA, C4, CH50 #### [facility] , RBC,Urine 1 [HPF] Normal 0-4 [facility] Comment on above: Order Comment: Name Collection Type:: Clean-Voided Midstream Performed By: #### A DNA, SJOGRENS, HELM, C3, HISAB, CCP, CHROMATIN, CENTROME, RA, CYNDI, [id number], JO1, B2 GLYPROT, ANTIR, CARDIO GMA, C4, CH50 #### [facility] , Specificy [place],Urine 1.025 Normal 1.001-1.030 [facility] Comment on above: Order Comment: Name Collection Type:: Clean-Voided Midstream Performed By: #### A DNA, SJOGRENS, HELM, C3, HISAB, CCP, CHROMATIN, CENTROME, RA, CYNDI, [id number], JO1, B2 GLYPROT, ANTIR, CARDIO GMA, C4, CH50 #### [facility] , Squamous Epithelial Cell,Urine 3 [HPF] High 0-2 [facility] Comment on above: Order Comment: Name Collection Type:: Clean-Voided Midstream Performed By: #### A DNA, SJOGRENS, HELM, C3, HISAB, CCP, CHROMATIN, CENTROME, RA, CYNDI, [id number], JO1, B2 GLYPROT, ANTIR, CARDIO GMA, C4, CH50 #### [facility] , Urobilinogen,Urine 2 mg/dL High Normal [facility] Comment on above: Order Comment: Name Collection Type:: Clean-Voided Midstream Performed By: #### A DNA, SJOGRENS, HELM, C3, HISAB, CCP, CHROMATIN, CENTROME, RA, CYNDI, [id number], JO1, B2 GLYPROT, ANTIR, CARDIO GMA, C4, CH50 #### [facility] , WBC,Urine 1 [HPF] Normal 0-4 [facility] Comment on above: Order Comment: Name Collection Type:: Clean-Voided Midstream Performed By: #### A DNA, SJOGRENS, HELM, C3, HISAB, CCP, CHROMATIN, CENTROME, RA, CYNDI, [id number], JO1, B2 GLYPROT, ANTIR, CARDIO GMA, C4, CH50 #### [facility] , Drug Screen,Urineon 09-15-19 25 Amphetamine Screen,Urine Negative Normal Negative [facility] Comment on above: Performed By: #### A DNA, SJOGRENS, HELM, C3, HISAB, CCP, CHROMATIN, CENTROME, RA, CYNDI, [id number], JO1, B2 GLYPROT, ANTIR, CARDIO GMA, C4, CH50 #### [facility] , Barbiturate Screen,Urine Negative Normal Negative [facility] Comment on above: Performed By: #### A DNA, SJOGRENS, HELM, C3, HISAB, CCP, CHROMATIN, CENTROME, RA, CYNDI, [id number], JO1, B2 GLYPROT, ANTIR, CARDIO GMA, C4, CH50 #### [facility] , Benzodiazepines Screen,Urine Negative Normal Negative [facility] Comment on above: Performed By: #### A DNA, SJOGRENS, HELM, C3, HISAB, CCP, CHROMATIN, CENTROME, RA, CYNDI, [id number], JO1, B2 GLYPROT, ANTIR, CARDIO GMA, C4, CH50 #### [facility] , Cannabinoid Screen,Urine Negative Normal Negative [facility] Comment on above: Result Comment: Thes e are unconfirmed results and should not be used for legal purposes. Drug Cut-Off Concentration: AMPH 1000 ng/mL OPAL 200 ng/mL AURELIANO 200 ng/mL COCM 300 ng/mL OP 300 ng/mL PCP 25 ng/mL THC 20 ng/mL PERFORMED BY: [address] [address] PATHOLOGIST MACHINE GUN MECHANIC CARLOS KNAPP M.D. Performed By: #### A DNA, SJOGRENS, HELM, C3, HISAB, CCP, CHROMATIN, CENTROME, RA, CYNDI, [id number], JO1, B2 GLYPROT, ANTIR, CARDIO GMA, C4, CH50 #### [facility] , Cocaine Screen,Urine Negative Normal Negative [facility] Comment on above: Performed By: #### A DNA, SJOGRENS, HELM, C3, HISAB, CCP, CHROMATIN, CENTROME, RA, CYNDI, [id number], JO1, B2 GLYPROT, ANTIR, CARDIO GMA, C4, CH50 #### [facility] , Opiate Screen,Urine Negative Normal Negative [facility] Comment on above: Performed By: #### A DNA, SJOGRENS, HELM, C3, HISAB, CCP, CHROMATIN, CENTROME, RA, CYNDI, [id number], JO1, B2 GLYPROT, ANTIR, CARDIO GMA, C4, CH50 #### [facility] , Phencyclidine Screen,Urine Negative Normal Negative [facility] Comment on above: Performed By: #### A DNA, SJOGRENS, HELM, C3, HISAB, CCP, CHROMATIN, CENTROME, RA, CYNDI, [id number], JO1, B2 GLYPROT, ANTIR, CARDIO GMA, C4, CH50 #### [facility] , ECG 12 lead ECGon 09-15-2024 ECG 12 lead ECG [facility] [place] [address] Electrocardiograph Report Signed Patient: Shazia Chou MR#: [id number] : 1990 Acct:[id number] Age/Sex: 33 / F ADM Date: 09/15/24 Loc: ER Room: Type: [facility] ER Attending Dr: Ordering Provider: Sailaja [...] needs review Confirmed by Agus Hooper DO ([id number]) on 09/15/2024 3:29:15 PM Referred By: Electronically Signed By: Agus Hooper DO Transcribed By: MUS Signed By Agus Hooper DO 5 1529 Normal [facility] Eosinophils Auto (Bld) [#/Vo l]Ordered By: Sailaja Anderson on 09-15-2024 Eosinophils (Bld) [#/Vol] Automated eosinophil count 0.0-0.45 [facility] Eosinophils/100 WBC Auto (Bl d)Ordered By: Sailaja Anderson on 09-15-2024 Eosinophils/100 WBC (Bld) Automated eosinophil % . [facility] Epithelial cells.squamous [# /area] in Urine sediment by Automated countOrdered By: Sailaja Anderson on 09-15-2024 Epithelial cells.squamous Auto (Urine sed) [#/Area] Epithelial cells.squamous [#/area] in Urine sediment by Automated count High 0-2 [facility] Erythrocyte Sedimentation Ra don 09-15-2024 ESR (Bld) [Velocity] 7 mm/h Normal 0-19 [facility] Comment on above: Result Comment: PERF ORMED BY: [facility] [place] [address] PATHOLOGIST MACHINE [employer]CHAN[employer] CARLOS KNAPP M.D. Performed By: #### A DNA, SJOGRENS, HELM, C3, HISAB, CCP, CHROMATIN, CENTROME, RA, CYNDI, [id number], JO1, B2 GLYPROT, ANTIR, CARDIO GMA, C4, CH50 #### [facility] , Erythrocyte distribution wid th Auto (RBC) [Ratio]Ordered By: Sailaja Anderson on 09-15-2024 Erythrocyte distribution width (RBC) [Ratio] Erythrocyte distribution width [Ratio] by Automated count High 11.9-15.3 [facility] Erythrocyte sedimentation ra te by Photometric methodOrdered By: Sailaja Anderson on 09-15-2024 ESR Photometric method (Bld) [Velocity] Erythrocyte sedimentation rate by Photometric method 0-19 [facility] Erythrocytes [#/area] in Uri ne sediment by Automated countOrdered By: Sailaja Anderson on 09-15-2024 RBC Auto (Urine sed) [#/Area] Erythrocytes [#/area] in Urine sediment by Automated count 0-4 [facility] Ethanol [Mass/volume] in Ser um or PlasmaOrdered By: Sailaja Anderson on 09-15-2024 Ethanol [Mass/Vol] Ethanol [Mass/volume ] in Serum or Plasma [facility] Comment on above: Test not performed Ethyl Alcohol Profileon Ethanol [Mass/Vol] mg/dL Normal [facility] Comment on above: Performed By: #### A DNA, SJOGRENS, HELM, C3, HISAB, CCP, CHROMATIN, CENTROME, RA, CYNDI, [id number], JO1, B2 GLYPROT, ANTIR, CARDIO GMA, C4, CH50 #### [facility] , Percent Ethanol Not performed Normal [facility] Comment on above: Result Comment: PERF ORMED BY: [facility] [place] [address] PATHOLOGIST MACHINE [employer] MECHANIC CARLOS KNAPP M.D. Performed By: #### A DNA, SJOGRENS, HELM, C3, HISAB, CCP, CHROMATIN, CENTROME, RA, CYNDI, [id number], JO1, B2 GLYPROT, ANTIR, CARDIO GMA, C4, CH50 #### [facility] , Family Medicine Office/Clini c Noteon 09-15-2024 Family [...] Mia PERRY Any recent labs: done @ [facility] ER 09/05/24 Health Maintenance UTD: Colonoscopy: NA Mammogram: 12/09/23 [facility] Pelvic/Pap: 12/05 following hysterectomy, states she was [...] her previous pcp in July, to the [facility] ED on 09/05/2024 and again on 09/11/2024. She reports she was at [facility] last week and they performed a bunch of laboratory testing that came back negative. She was seen at in [place] on 09/13/2024 for chest pain and this [...] unspecified site) Reviewed the discharge summary from [facility]- CMP, CRP, ESR, & CBC - WNL Reviewed the Echo from in [place] on the 13 of September- Normal results Awaiting additional records from providers f/u after consult with neurology Ordered: [facility] External Ambulatory Referral 2. Balance problem (R26.89: Other abnormalities of gait and mobility) Reviewed the discharge summary from [facility]- CMP, CRP, ESR, & CBC - WNL Reviewed the Echo from in [place] on the 13 of September- Normal results Awaiting additional records from providers f/u after consult with neurology Ordered: [facility] External Ambulatory Referral 3. Encounter to establish [...] in addres (more content not included)... Normal [facility] Comment on above: Result Comment: Elec tronically Signed By: KUTR BALBUENA CNP\.br\Date and Time Signed: 09/15/24 14:31 EST Free T4 (Free Thyroxine)on 0 09-15-2024 Free T4 [Mass/Vol] 1.02 ng/dL Normal 0.61-1.12 [facility] Comment on above: Performed By: #### A DNA, SJOGRENS, HELM, C3, HISAB, CCP, CHROMATIN, CENTROME, RA, CYNDI, [id number], JO1, B2 GLYPROT, ANTIR, CARDIO GMA, C4, CH50 #### [facility] , Globulin Calc (S) [Mass/Vol] Ordered By: Sailaja Anderson on 09-15-2024 Globulin (S) [Mass/Vol] Serum globulin measurement by calculation (mass/volume) [facility] Glucose [Mass/volume] in Ser um or PlasmaOrdered By: Sailaja Anderson on 09-15-2024 Glucose [Mass/Vol] Glucose [Mass/volume ] in Serum or Plasma 70-100 [facility] Comment on above: ADA recommended refe [...] [Mass/volume] in Urine by Test strip Normal [facility] HCG ( test) IA.rapi d Ql (U)Ordered By: Sailaja Anderson on 09-15-2024 HCG ( test) Ql (U) Urine human chorionic gonadotropin (hCG) detection by immunoassay [facility] HCG,Urineon 09-15-2024 Beta HCG ( test) Ql (U) Negative Normal [facility] Comment on above: Order Comment: Name Collection Type:: Clean-Voided Midstream Result Comment: PERF ORMED BY: [facility] [address] [place] [address] PATHOLOGIST MACHINE G[employer] MECHANIC CARLOS KNAPP M.D. Performed By: #### A DNA, SJOGRENS, HELM, C3, HISAB, CCP, CHROMATIN, CENTROME, RA, CYNDI, [id number], JO1, B2 GLYPROT, ANTIR, CARDIO GMA, C4, CH50 #### [facility] , Hematocrit Auto (Bld) [Volum e fraction]Ordered By: Sailaja Anderson on 09-15-2024 Hematocrit (Bld) [Volume fraction] Hematocrit [Volume Fraction] of Blood by Automated count 34.0-46.4 [facility] Hemoglobin Test strip Ql (U) Ordered By: Sailaja Anderson on 09-15-2024 Hemoglobin Ql (U) Hemoglobin [Presence ] in Urine by Test strip Negative [facility] Hemoglobin [Mass/volume] in BloodOrdered By: Sailaja Anderson on 09-15-2024 Hemoglobin (Bld) [Mass/Vol] Hemoglobin [Mass/volume] in Blood 11.8-15.4 [facility] Hyaline casts [#/area] in Ur ine sediment by Automated countOrdered By: Sailaja Anderson on 09-15-2024 Hyaline casts Auto (Urine sed) [#/Area] Hyaline casts [#/area] in Urine sediment by Automated count 0-8 [facility] INR in Platelet poor plasma by Coagulation assayOrdered By: Sailaja Anderson on 09-15-2024 INR Coag (PPP) [Relative time] INR in Platelet poor plasma by Coagulation assay [facility] Comment on above: INR Therapeutic Rang [...] n Urine by Test strip High Negative [facility] Leukocyte esterase [Presence ] in Urine by Test stripOrdered By: Sailaja Anderson on 09-15-2024 Leukocyte esterase Test strip Ql (U) Leukocyte esterase [Presence] in Urine by Test strip Negative [facility] Leukocytes [#/area] in Urine sediment by Automated countOrdered By: Sailaja Anderson on 09-15-2024 WBC Auto (Urine sed) [#/Area] Leukocytes [#/area] in Urine sediment by Automated count 0-4 [facility] Leukocytes [#/volume] correc caitlin for nucleated erythrocytes in Blood by Automated counOrdered By: Sailaja Anderson on 09-15-2024 WBC corrected for nucl RBC Auto (Bld) [#/Vol] Leukocytes [#/volume] corrected for nucleated erythrocytes in Blood by Automated coun 3.8-11.6 [facility] Lymphocytes Auto (Bld) [#/Vo l]Ordered By: Sailaja Anderson on 09-15-2024 Lymphocytes (Bld) [#/Vol] Lymphocytes [#/volume] in Blood by Automated count 1.00-4.8 [facility] Lymphocytes/100 WBC Auto (Bl d)Ordered By: Sailaja Anderson on 09-15-2024 Lymphocytes/100 WBC (Bld) Lymphocytes/100 leukocytes in Blood by Automated count . [facility] MCH Auto (RBC) [Entitic mass ]Ordered By: Sailaja Anderson on 09-15-2024 MCH (RBC) [Entitic mass] MCH [Entitic mass] by Automated count 24.7-34.3 [facility] MCHC Auto (RBC) [Mass/Vol]Or dered By: Sailaja Anderson on 09-15-2024 MCHC (RBC) [Mass/Vol] MCHC [Mass/volume] by Automated count 32.0-35.0 [facility] MCV Auto (RBC) [Entitic vol] Ordered By: Sailaja Anderson on 09-15-2024 MCV (RBC) [Entitic vol] MCV [Entitic volume] by Automated count 80-100 [facility] Magnesiumon 09-15-2024 Magnesium [Mass/Vol] 1.7 mg/dL Low 1.9-2.7 [facility] Comment on above: Performed By: #### A DNA, SJOGRENS, HELM, C3, HISAB, CCP, CHROMATIN, CENTROME, RA, CYNDI, [id number], JO1, B2 GLYPROT, ANTIR, CARDIO GMA, C4, CH50 #### [facility] , Magnesium [Mass/volume] in S tushar or PlasmaOrdered By: Sailaja Anderson on 09-15-2024 Magnesium [Mass/Vol] Magnesium [Mass/vol ume] in Serum or Plasma Low 1.9-2.7 [facility] Monocyte distribution width [Entitic volume] in Blood by AutomatedOrdered By: Sailaja Anderson on 09-15-2024 Monocyte distribution width Auto (Bld) [Entitic vol] Monocyte distribution width [Entitic volume] in Blood by Automated 0.00-20.00 [facility] Monocytes Auto (Bld) [#/Vol] Ordered By: Sailaja Anderson on 09-15-2024 Monocytes (Bld) [#/Vol] Automated blood monocyte count 0.0-0.8 [facility] Monocytes/100 WBC Auto (Bld) Ordered By: Sailaja Anderson on 09-15-2024 Monocytes/100 WBC (Bld) Automated monocyte % . [facility] Mucus [Presence] in Urine by AutomatedOrdered By: Sailaja Anderson on 09-15-2024 Mucus Auto Ql (U) Mucus [Presence] in Urine by Automated [facility] Neutrophils Auto (Bld) [#/Vo l]Ordered By: Sailaja Anderson on 09-15-2024 Neutrophils (Bld) [#/Vol] Neutrophils [#/volume] in Blood by Automated count 1.8-7.7 [facility] Neutrophils/100 WBC Auto (Bl d)Ordered By: Sailaja Kamaracojacqueline on 09-15-2024 Neutrophils/100 WBC (Bld) Automated neutrophil % . [facility] Nitrite Test strip Ql (U)Ord ered By: Sailaja Anderson on 09-15-2024 Nitrite Ql (U) Nitrite [Presence] i n Urine by Test strip Negative [facility] No Panel InformationOrdered By: Sailaja Anderson on 09-15-2024 Estimated GFR (CKD-EPI) > 60.0 mL/Min [facility] Creatinine Clearance (Chem 157.80 [facility] Nucleated erythrocytes [Pres ence] in Blood by Automated countOrdered By: Sailaja Anderson on 09-15-2024 Nucleated RBC Auto Ql (Bld) Nucleated erythrocytes [Presence] in Blood by Automated count 0-0.5 [facility] Opiates [Presence] in Urine by Screen methodOrdered By: Sailaja Anderson on 09-15-2024 Opiates Screen Ql (U) Opiates [Presence] in Urine by Screen method Negative [facility] Partial Thromboplastin Timeo n 09-15-2024 aPTT Coag (Bld) [Time] 28.0 s Normal 25.1-36.5 [facility] Comment on above: Result Comment: A he matocrit value greater than 55% may lead to inaccurate results in coagulation testing. Patients having hematocrit values >55% require a special collection tube for coagulation studies. Please contact the laboratory at [phone] for redraw instructions. PERFORMED BY: [facility] [place] [address] PATHOLOGIST MACHINE GUN MECHANIC CARLOS KNAPP M.D. Performed By: #### A DNA, SJOGRENS, HELM, C3, HISAB, CCP, CHROMATIN, CENTROME, RA, CYNDI, [id number], JO1, B2 GLYPROT, ANTIR, CARDIO GMA, C4, CH50 #### [facility] , Phencyclidine Screen Ql (U)O rdered By: Sailaja Anderson on 09-15-2024 Phencyclidine Ql (U) Phencyclidine [Presence] in Urine by Screen method Negative [facility] Platelet mean volume Auto (B ld) [Entitic vol]Ordered By: Sailaja Anderson on 09-15-2024 Platelet mean volume (Bld) [Entitic vol] Platelet mean volume [Entitic volume] in Blood by Automated count 6.3-10.7 [facility] Platelets Auto (Bld) [#/Vol] Ordered By: Sailaja Anderson on 09-15-2024 Platelets (Bld) [#/Vol] Platelets [#/volume] in Blood by Automated count 150-450 [facility] Potassium [Moles/volume] in Serum or PlasmaOrdered By: Sailaja Anderson on 09-15-2024 Potassium [Moles/Vol] Potassium [Moles/volume] in Serum or Plasma 3.5-5.1 [facility] Protein Test strip (U) [Mass /Vol]Ordered By: Sailaja Anderson on 09-15-2024 Protein (U) [Mass/Vol] Protein [Mass/vol ume] in Urine by Test strip High Negative [facility] Protein [Mass/volume] in Ser um or PlasmaOrdered By: Sailaja Anderson on 09-15-2024 Protein [Mass/Vol] Protein [Mass/volume ] in Serum or Plasma 6.4-8.9 [facility] Prothrombin Time INRon 09-15 INR Coag (PPP) [Relative time] 0.9 {INR} Normal [facility] Comment on above: Result [...] valves: 3 - 4.5 Performed By: #### A DNA, SJOGRENS, HELM, C3, HISAB, CCP, CHROMATIN, CENTROME, RA, CYNDI, [id number], JO1, B2 GLYPROT, ANTIR, CARDIO GMA, C4, CH50 #### [facility] , PT Coag (PPP) [Time] 10.4 s Normal 9.0-12.9 [facility] Comment on above: Result Comment: A he matocrit value greater than 55% may lead to inaccurate results in coagulation testing. Patients having hematocrit values >55% require a special collection tube for coagulation studies. Please contact the laboratory at [phone] for redraw instructions. Performed By: #### A DNA, SJOGRENS, HELM, C3, HISAB, CCP, CHROMATIN, CENTROME, RA, CYNDI, [id number], JO1, B2 GLYPROT, ANTIR, CARDIO GMA, C4, CH50 #### [facility] , Prothrombin time (PT)Ordered By: Sailaja Anderson on 09-15-2024 PT Coag (PPP) [Time] Prothrombin time (PT) 9.0- 12.9 [facility] Comment on above: A hematocrit value g reater than 55% may lead to inaccurate results in coagulation testing. Patients having hematocrit values >55% require a special collection tube for coagulation studies. Please contact the laboratory at [phone] for redraw instructions. RBC Auto (Bld) [#/Vol]Ordere d By: Sailaja Anderson on 09-15-2024 RBC (Bld) [#/Vol] Erythrocytes [#/volu me] in Blood by Automated count 3.60-5.00 [facility] Serum or plasma albumin/glob ulin mass ratioOrdered By: Sailaja Anderson on 09-15-2024 Albumin/Globulin [Mass ratio] Serum or plasma albumin/globulin mass ratio [facility] Serum or plasma anion gap de terminationOrdered By: Sailaja Anderson on 01-02-2025 Anion gap [Moles/Vol] Serum or plasma an ion gap determination 6.0-15.0 [facility] Sodium [Moles/volume] in Ser um or PlasmaOrdered By: Sailaja Anderson on 09-15-2024 Sodium [Moles/Vol] Sodium [Moles/volume ] in Serum or Plasma 136-145 [facility] Specific gravity Test strip (U) [Rel density]Ordered By: Sailaja Anderson on 09-15-2024 Specific gravity (U) [Rel density] Specific gravity of Urine by Test strip 1.001-1.030 [facility] Thyroid Stimulating Hormoneo n 09-15-2024 TSH Qn 0.73 m[IU]/L Normal 0.45-5.33 [facility] Comment on above: Result Comment: PERF ORMED BY: [facility] [address] [facility] [place] [address] PATHOLOGIST MACHINE G[employer] MECHANIC CARLOS KNAPP M.D. Performed By: #### A DNA, SJOGRENS, HELM, C3, HISAB, CCP, CHROMATIN, CENTROME, RA, CYNDI, [id number], JO1, B2 GLYPROT, ANTIR, CARDIO GMA, C4, CH50 #### [facility] , Thyrotropin [Units/volume] i n Serum or PlasmaOrdered By: Sailaja Anderson on 09-15-2024 TSH Qn Thyrotropin [Units/volume] in Serum or Plasma 0.45-5.33 [facility] Thyroxine (T4) free [Mass/vo lume] in Serum or PlasmaOrdered By: Sailaja Anderson on 09-15-2024 Free T4 [Mass/Vol] Thyroxine (T4) free [Mass/volume] in Serum or Plasma 0.61-1.12 [facility] Troponin I High Sensitivityo n 09-15-2024 Troponin I High Sensitivity 2.3 pg/mL Normal 0.0-15.0 [facility] Comment on above: Result Comment: PERF ORMED BY: [facility] [address] [place] [address] PATHOLOGIST MACHINE GUN MECHANIC CARLOS KNAPP M.D. Performed By: #### A DNA, SJOGRENS, HELM, C3, HISAB, CCP, CHROMATIN, CENTROME, RA, CYNDI, CAA17RB, JO1, B2 GLYPROT, ANTIR, CARDIO GMA, C4, CH50 #### [facility] , Troponin I.cardiac [Mass/vol ume] in Serum or Plasma by Detection limit <= 0.01 ng/Ordered By: Sailaja Anderson on 09-15-2024 Troponin I.cardiac DL <= 0.01 ng/mL [Mass/Vol] Troponin I.cardiac [Mass/volume] in Serum or Plasma by Detection limit <= 0.01 ng/ 0.0-15.0 [facility] Urea nitrogen [Mass/volume] in Serum or PlasmaOrdered By: Sailaja Anderson on 09-15-2024 Urea nitrogen [Mass/Vol] Urea nitrogen [Mass/volume] in Serum or Plasma Low 7-25 [facility] Urobilinogen Test strip (U) [Mass/Vol]Ordered By: Sailaja Anderson on 09-15-2024 Urobilinogen (U) [Mass/Vol] Urobilinogen [Mass/volume] in Urine by Test strip High Normal [facility] WBC Auto (Bld) [#/Vol]Ordere d By: Sailaja Anderson on 09-15-2024 WBC (Bld) [#/Vol] Leukocytes [#/volume ] in Blood by Automated count 3.8-11.6 [facility] X-ray reportOrdered By: Wiley Shetty on 09-15-2024 Study report [facility] [place] [address] XRay Report Signed Patient: Shazia Chou MR#: [id number] : 1990 Acct:[id number] Age/Sex: 33 / F ADM Date: 5 Loc: ER Room: Type: [facility] ER Attending Dr: Copies to: Sailaja [...] Wiley Shetty M.D.09/15/2024 3:56 PM Dictation Location: RADIO-PC-17 Transcribed By: MARKY 09/15/24 155 Dictated By: Wiley Shetty II, MD 09/15/241555 Signed By: 09/15/241555 [facility] Work Phone: XR chest 2V*on 09-15-2024 XR chest 2V* [facility] Main [place] [address] [place] [address] XRay Report Signed Patient: Shazia Chou MR#: [id number] : 1990 Acct:[id number] Age/Sex: 33 / F ADM Date: 09/15/24 Loc: ER Room: Type: [facility] ER Attending Dr: Copies to: Sailaja [...] Wiley Shetty M.D.09/15/2024 3:56 PM Dictation Location: RADIO-PC-17 Transcribed By: MARKY 09/15/24 155 Dictated By: Wiley Shetty II, MD 09/15/241555 Signed By: 09/15/24 155 Normal [facility] aPTT in Platelet poor plasma by Coagulation assayOrdered By: Sailaja Anderson on 09-15-2024 aPTT Coag (PPP) [Time] Activated partial thromboplastin time (aPTT) in platelet poor plasma by coagulation a 25.1-36.5 [facility] Comment on above: A hematocrit value g reater than 55% may lead to inaccurate results in coagulation testing. Patients having hematocrit values >55% require a special collection tube for coagulation studies. Please contact the laboratory at [phone] for redraw instructions. 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 Clerk: Julissa Licona RD, T Gender Assigned at F Additional Staff: : Height: 170.18 cm Admit Date: Weight: 85.28 kg Admission Status: BSA / BMI: 1.97 m2 / 29.45 Department Location: [address] Blood Pressure: 118 /76 mmHg Study Type: TRANSTHORACIC ECHO (TTE) COMPLETE Diagnosis/ICD: Angina pectoris, unspecified-I20.9; Shortness of breath-R06.02; Palpitations-R00.2; Family history of ischemic heart disease and other diseases of the circulatory system-Z82.49; Essential (primary) hypertension-I10 Indication: Tobacco Abuse, Anxiety/Depression, Pseudotumor Cerebri, ETOH Abuse, Bipolar Disorder, History of Gastric Bypass CPT Codes: Echo Complete w Full Doppler-46272 Study Detail: The following Echo studies were [...] 0.7 m/s (0.6-0.9m/s) PV Max P.1 mmHg [id number] Adithya Boswell MD, FACC Electronically signed on 09/13/2024 at 4:00:19 PM Final Normal [facility] US Heart TransthoracicOrdere d By: Adithya Boswell on 09-13-2024 Aortic Valve Area by Continuity of Peak Velocity 2.48 cm2 [facility] Work Phone: Aortic Valve Area by Continuity of VTI 2.66 cm2 [facility] Work Phone: AV mn grad 4 mmHg [facility] Work Phone: AV pk grad 8 mmHg [facility] Work Phone: AV pk joellen 1.43 m/s [facility] Work Phone: LV A4C EF 67.8 [facility] Work Phone: LV Biplane EF 68 % [facility] Work Phone: LV EF 68 % [facility] Work Phone: LVIDd 5.01 cm [facility] Work Phone: LVOT diam 2.2 cm [facility] Work Phone: MV avg E/e' ratio 6.6 [facility] Work Phone: [phone] E/A ratio 1.52 [facility] Work Phone: RVSP 27 mmHg [facility] Work Phone: [facility] Work Phone: Heart Transthoracicon [address], Suite [facility] [place] [address] TRANSTHORACIC ECHOCARDIOGRAM REPORT Patient Name: SHAZIA Garcia Physician: [id number] Adithya Boswell MD, [facility] Study Date: 09/13/2024 Ordering Provider: [id number] ALEAH HOWARD MRN/PID: [id number] Fellow: Nurse: Date of /Age: 4 1990 / 33 years Delicatessen Clerk: Julissa Licona RDCS, RVT Gender Assigned at F Additional Staff: : Height: 170.18 cm Admit Date: Weight: 85.28 kg Admission Status: BSA / BMI: 1.97 m2 / 29.45 Department Location: [facility] kg/m2 [place] Blood Pressure: 118 /76 mmHg Study Type: TRANSTHORACIC ECHO (TTE) COMPLETE Diagnosis/ICD: Angina pectoris, unspecified-I20.9; Shortness of breath-R06.02; Palpitations-R00.2; Family history of ischemic heart disease and other diseases of the circulatory system-Z82.49; Essential (primary) hypertension-I10 Indication: Tobacco Abuse, Anxiety/Depression, Pseudotumor Cerebri, ETOH Abuse, Bipolar Disorder, History of Gastric Bypass CPT Codes: Echo Complete w Full Doppler-08773 Study Detail: The following Echo studies were [...] included)... Adithya Jenkins M D - 09/13/2024 [facility] Heart [place] [address] [facility], [address], [place] [address] TRANSTHORACIC ECHOCARDIOGRAM REPORT Patient Name: SHAZIA CHOU Reading Physician: [id number] Adithya Boswell MD, [facility] Study Date: 09/13/2024 Ordering Provider: [id number] ALEAH HOWARD MRN/PID: [id number] Fellow: Nurse: Date of /Age: 4 1990 / 33 years Delicatessen Clerk: Julissa Licona RDCS, RVT Gender Assigned at F Additional Staff: : Height: 170.18 cm Admit Date: Weight: 85.28 kg Admission Status: BSA / BMI: 1.97 m2 / 29.45 Department Location: [facility] kg/m2 [place] Blood Pressure: 118 /76 mmHg Study Type: TRANSTHORACIC ECHO (TTE) COMPLETE Diagnosis/ICD: Angina pectoris, unspecified-I20.9; Shortness of breath-R06.02; Palpitations-R00.2; Family history of ischemic heart disease and other diseases of the circulatory system-Z82.49; Essential (primary) hypertension-I10 Indication: Tobacco Abuse, Anxiety/Depression, Pseudotumor Cerebri, ETOH Abuse, Bipolar Disorder, History of Gastric Bypass CPT Codes: Echo Complete w Full Doppler-49455 Study Detail: The following Echo studies were [...] 0.7 m/s (0.6-0.9m/s) PV Max P.1 mmHg [id number] Adithya Boswell MD, [facility] Electronically signed on 09/13/2024 at 4:00:19 PM Final [facility] Work Phone: EBV Early Abon 08-19-2024 EBV early diffuse IgG Qn (S) <9.0 Invalid Interpretation Code 0.0-8.9 [facility] Comment on above: Result Comment: Nega tive < 9.0 Equivocal 9.0 - 10.9 Positive >10.9 Performed at: [facility] [address] [id number] PhD Cordelia Madera Performed By: #### 1 [id number] #### Harpreet [facility] [address] [place] [address] CHEMISTRYOrdered By: SYSTEM SYSTEM on 08-18-2024 Ferritin [...] By: Rayne Pinto on 08-18-2024 Test Code 077320 1 Invalid Interpretation Code [facility] SendOuts Test Name a1C Invalid Interpretation Code [facility] SendOutsSS ECG 12 Leadon 08-16-2024 [facility] Work Phone: 25(OH)D3 [facility] 25-hydroxyvitamin D3 [Mass/Vol] 41.9 ng/mL Normal 31.0-80.0 [facility] Comment on above: Order Comment: Specarielle birmingham Type: BLOOD SPECIMENOrdering Facility: [facility] Address: [address] [place] [address] Result Comment: Clas sification of 25 [place] Vitamin D status: Deficiency/Insufficiency: < or = 30 ng/ml. Sufficiency/Optimal Levels: 31-80 ng/mL Toxicity: > 100 ng/mL. Test performed by chemiluminescent immunoassay. Performed By: #### 1 989-3 ####[facility] [id number] [place] [address] [place] CBC W Auto Differential pane l (Bld)on 07-26-2024 Basophils (Bld) [#/Vol] 0.05 10*3/uL Normal <0.11 [facility] Comment on above: Order Comment: Speci men Type: BLOOD SPECIMEN Ordering Facility: [facility] Address: [address] [place] [address] Performed By: #### 5 7021-8 #### [facility] CLIA [id number] [address] [place] [address] Basophils/100 WBC (Bld) 0.4 % Normal [facility] Comment on above: Order Comment: Cecili men Type: BLOOD SPECIMEN Ordering Facility: [facility] Address: [address] [place] [address] Performed By: #### 5 7021-8 #### [facility] CLIA [id number] [address] [place] [address] Differential cell count method Nom (Bld) Auto Normal [facility] Comment on above: Order Comment: Speci men Type: BLOOD SPECIMEN Ordering Facility: [facility] Address: [address] [place] [address] Performed By: #### 5 7021-8 #### [facility] CLIA [id number] [address] [place] [address] Eosinophils (Bld) [#/Vol] 0.29 10*3/uL Normal <0.46 [facility] Comment on above: Order Comment: Speci men Type: BLOOD SPECIMEN Ordering Facility: [facility] Address: [address] [place] [address] Performed By: #### 5 7021-8 #### [facility] CLIA [id number] [address] [place] [address] Eosinophils/100 WBC (Bld) 2.3 % Normal [facility] Comment on above: Order Comment: Speci men Type: BLOOD SPECIMEN Ordering Facility: [facility] Address: [address] [place] [address] Performed By: #### 5 7021-8 #### [facility] CLIA [id number] [address] [place] [address] Erythrocyte distribution width (RBC) [Ratio] 16.4 % High 11.5-15.0 [facility] Comment on above: Order Comment: Speci men Type: BLOOD SPECIMEN Ordering Facility: [facility] Address: [address] [place] [address] Performed By: #### 5 7021-8 #### [facility] CLIA [id number] [address] [place] [address] Hematocrit (Bld) [Volume fraction] 38.2 % Normal 36.0-46.0 [facility] Comment on above: Order Comment: Speci men Type: BLOOD SPECIMEN Ordering Facility: [facility] Address: [address] [place] [address] Performed By: #### 5 7021-8 #### [facility] CLIA [id number] [address] [place] [address] Hemoglobin (Bld) [Mass/Vol] 13.0 g/dL Normal 11.5-15.5 [facility] Comment on above: Order Comment: Speci men Type: BLOOD SPECIMEN Ordering Facility: [facility] Address: [address] [place] [address] Performed By: #### 5 7021-8 #### [facility] CLIA [id number] [address] [place] [address] Immature granulocytes (Bld) [#/Vol] 0.04 10*3/uL Normal <0.10 [facility] Comment on above: Order Comment: Speci men Type: BLOOD SPECIMEN Ordering Facility: [facility] Address: [address] [place] [address] Performed By: #### 5 7021-8 #### [facility] CLIA [id number] [address] [place] [address] Immature granulocytes/100 WBC (Bld) 0.3 % Normal [facility] Comment on above: Order Comment: Speci men Type: BLOOD SPECIMEN Ordering Facility: [facility] Address: [address] [place] [address] Performed By: #### 5 7021-8 #### [facility] CLIA [id number] [address] [place] [address] Lymphocytes (Bld) [#/Vol] 1.78 10*3/uL Normal 1.00-4.00 [facility] Comment on above: Order Comment: Speci men Type: BLOOD SPECIMEN Ordering Facility: [facility] Address: [address] [place] [address] Performed By: #### 5 7021-8 #### [facility] CLIA [id number] [address] [place] [address]95 Lymphocytes/100 WBC (Bld) 14.4 % Normal [facility] Comment on above: Order Comment: Speci men Type: BLOOD SPECIMEN Ordering Facility: [facility] Address: [address] [place] [address] Performed By: #### 5 7021-8 #### [facility] CLIA [id number] [address] [place] [address] 29211 MCH (RBC) [Entitic mass] 31.4 pg Normal 26.0-34.0 [facility] Comment on above: Order Comment: Speci men Type: BLOOD SPECIMEN Ordering Facility: [facility] Address: [address] [place] [address] Performed By: #### 5 7021-8 #### [facility] CLIA [id number] [address] [place] [address]2018 MCHC (RBC) [Mass/Vol] 34.0 g/dL Normal 30.5-36.0 [facility] Comment on above: Order Comment: Speci men Type: BLOOD SPECIMEN Ordering Facility: [facility] Address: [address] [place] [address] Performed By: #### 5 7021-8 #### [facility] CLIA [id number] [address] [place] [address]761 MCV (RBC) [Entitic vol] 92.3 fL Normal 80.0-100.0 [facility] Comment on above: Order Comment: Speci men Type: BLOOD SPECIMEN Ordering Facility: [facility] Address: [address] [place] [address] Performed By: #### 5 7021-8 #### [facility] CLIA [id number] [address] [place] [address]33 Monocytes (Bld) [#/Vol] 0.62 10*3/uL Normal <0.87 [facility] Comment on above: Order Comment: Speci men Type: BLOOD SPECIMEN Ordering Facility: [facility] Address: [address] [place] [address] Performed By: #### 5 7021-8 #### [facility] CLIA [id number] [address] [place] [address] Monocytes/100 WBC (Bld) 5.0 % Normal [facility] Comment on above: Order Comment: Speci men Type: BLOOD SPECIMEN Ordering Facility: [facility] Address: [address] [place] [address] Performed By: #### 5 7021-8 #### [facility] CLIA [id number] [address] [place] [address] Neutrophils (Bld) [#/Vol] 9.58 10*3/uL High 1.45-7.50 [facility] Comment on above: Order Comment: Speci men Type: BLOOD SPECIMEN Ordering Facility: [facility] Address: [address] [place] [address] Performed By: #### 5 7021-8 #### [facility] CLIA [id number] [address] [place] [address]109 Neutrophils/100 WBC (Bld) 77.6 % Normal [facility] Comment on above: Order Comment: Speci men Type: BLOOD SPECIMEN Ordering Facility: [facility] Address: [address] [place] [address] Performed By: #### 5 7021-8 #### [facility] CLIA [id number] [address] [place] [address] 12794 Nucleated RBC (Bld) [#/Vol] 10*3/uL Normal <0.01 [facility] Comment on above: Order Comment: Speci men Type: BLOOD SPECIMEN Ordering Facility: [facility] Address: [address] [place], [place] [address] Performed By: #### 5 7021-8 #### [facility] CLIA [id number] [address] [place] [address] 06246 Nucleated RBC/100 WBC (Bld) [Ratio] 0.0 /100 WBC Normal [facility] Comment on above: Order Comment: Speci men Type: BLOOD SPECIMEN Ordering Facility: [facility] Address: [address] [place] [id number] Performed By: #### 5 7021-8 #### [facility] CLIA [id number] [address] [place] [address] Platelet mean volume (Bld) [Entitic vol] 10.8 fL Normal 9.0-12.7 [facility] Comment on above: Order Comment: Speci men Type: BLOOD SPECIMEN Ordering Facility: [facility] Address: [address] [place] [address] Performed By: #### 5 7021-8 #### [facility] CLIA [id number] [address] [place] [address]253 Platelets (Bld) [#/Vol] 302 10*3/uL Normal 150-400 [facility] Comment on above: Order Comment: Speci men Type: BLOOD SPECIMEN Ordering Facility: [facility] Address: [address] [place] [address] Performed By: #### 5 7021-8 #### [facility] CLIA [id number] [address] [place] [address] 90369 RBC (Bld) [#/Vol] 4.14 10*6/uL Normal 3.90-5.[address] [facility] Comment on above: Order Comment: Speci men Type: BLOOD SPECIMEN Ordering Facility: [facility] Address: [address] [place] [address] Performed By: #### 5 7021-8 #### [facility] CLIA [id number] [address] [place] [address]203 WBC (Bld) [#/Vol] 12.36 10*3/uL High 3.70-11.00 [facility] Comment on above: Order Comment: Speci men Type: BLOOD SPECIMEN Ordering Facility: [facility] Address: [address] [place] [address] Performed By: #### 5 7021-8 #### [facility] CLIA [id number] [address] [place] [address]368 Comprehensive metabolic 2000 panelon 07-26-2024 Albumin [Mass/Vol] 4.7 g/dL Normal 3.9-4.9 [facility] Comment on above: Order Comment: Speci men Type: BLOOD SPECIMEN Ordering Facility: [facility] Address: [address] [place] [address] Performed By: #### 5 5454-3 #### [facility] CLIA [id number] [address] [place] [address] [place] ALP [Catalytic activity/Vol] 64 U/L Normal 34-123 [facility] Comment on above: Order Comment: Speci men Type: BLOOD SPECIMEN Ordering Facility: [facility] Address: [address] [place] [address] Performed By: #### 5 5454-3 #### [facility] CLIA [id number] [address] [place] [address] [place] ALT [Catalytic activity/Vol] 13 U/L Normal 7-38 [facility] Comment on above: Order Comment: Speci men Type: BLOOD SPECIMEN Ordering Facility: [facility] Address: [address] [place] [address] Performed By: #### 5 5454-3 #### [facility] CLIA [id number] [address] [place] [address] [place] Anion gap [Moles/Vol] 11 mmol/L Normal 8-15 [facility] Comment on above: Order Comment: Speci men Type: BLOOD SPECIMEN Ordering Facility: [facility] Address: [address] [place] [address] Performed By: #### 5 5454-3 #### [facility] CLIA [id number] [address] [place] [address] [place] AST [Catalytic activity/Vol] 20 U/L Normal 13-35 [facility] Comment on above: Order Comment: Speci men Type: BLOOD SPECIMEN Ordering Facility: [facility] Address: [address] [place] [address] Performed By: #### 5 5454-3 #### [facility] CLIA [id number] [address] [place] [address] [place] Bilirubin [Mass/Vol] 0.2 mg/dL Normal 0.2-1.3 [facility] Comment on above: Order Comment: Speci men Type: BLOOD SPECIMEN Ordering Facility: [facility] Address: [address] [place] [address] Performed By: #### 5 5454-3 #### [facility] CLIA [id number] [address] [place] [address] [place] Calcium [Mass/Vol] 9.6 mg/dL Normal 8.5-10.2 [facility] Comment on above: Order Comment: Speci men Type: BLOOD SPECIMEN Ordering Facility: [facility] Address: [address] [place] [address] Performed By: #### 5 5454-3 #### [facility] CLIA [id number] [address] [place] [address] [place] Chloride [Moles/Vol] 106 mmol/L Normal 98-107 [facility] Comment on above: Order Comment: Speci men Type: BLOOD SPECIMEN Ordering Facility: [facility] Address: [address] [place] [address] Performed By: #### 5 5454-3 #### [facility] CLIA [id number] [address] [place] [address] [place] CO2 [Moles/Vol] 22 mmol/L Normal 22-30 [facility] Comment on above: Order Comment: Speci men Type: BLOOD SPECIMEN Ordering Facility: [facility] Address: [address] [place] [address] Performed By: #### 5 5454-3 #### [facility] CLIA [id number] [address] [place] [address] [place] Creatinine [Mass/Vol] 0.69 mg/dL Normal 0.58-0.96 [facility] Comment on above: Order Comment: Philip birmingham Type: BLOOD SPECIMEN Ordering Facility: [facility] Address: [address] [place] [address] Performed By: #### 5 5454-3 #### [facility] CLIA [id number] [address] [place] [address] [place] Creatinine and Glomerular filtration rate.predicted panel (S/P/Bld) 116 mL/min/1.73m??? Normal >=60 [facility] Comment on above: Order Comment: Philip birmingham Type: BLOOD SPECIMEN Ordering Facility: [facility] Address: [address] [place] [address] Result Comment: Brenda mated Glomerular Filtration Rate [...] GFR. Performed By: #### 5 5454-3 #### [facility] CLIA [id number] [address] [place] [address] [place] Glucose [Mass/Vol] 91 mg/dL Normal 74-99 [facility] Comment on above: Order Comment: Philpi birmingham Type: BLOOD SPECIMEN Ordering Facility: [facility] Address: [address] [place] [address] Result Comment: The [place] [employer] (ADA) provides guidance for cutoff [...] Standards of Medical Care in Diabetes 2016, [place] [employer]. Diabetes Care. 2016.39(Suppl 1). Performed By: #### 5 5454-3 #### [facility] CLIA [id number] [address] [place] [address] [place] Potassium [Moles/Vol] 4.3 mmol/L Normal 3.7-5.1 [facility] Comment on above: Order Comment: Speci men Type: BLOOD SPECIMEN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 Address: [address] [place] [address] Performed By: #### 2 4323-8 ####[facility] LABCLIA [id number] [place] [address] Chloride [Moles/Vol] 107 mmol/L Normal 98-107 [facility] Comment on above: Order Comment: Speci men Type: BLOOD SPECIMENOrdering Facility: [facility] Address: [address] [place] [address] Performed By: #### 2 4323-8 ####[facility] LABCLIA [id number] [place] [address] CO2 [Moles/Vol] 27 mmol/L Normal 22-30 [facility] Comment on above: Order Comment: Speci men Type: BLOOD SPECIMENOrdering Facility: [facility] Address: [address] [place] [address] Performed By: #### 2 4323-8 ####[facility] LABCLIA [id number] [place] [address] Creatinine [Mass/Vol] 0.68 mg/dL Normal 0.58-0.96 [facility] Comment on above: Order Comment: Speci men Type: BLOOD SPECIMENOrdering Facility: [facility] Address: [address] [place], [place] [address] Performed By: #### 2 4323-8 ####[facility] LABCLIA [id number] [place] [address] Creatinine and Glomerular filtration rate.predicted panel (S/P/Bld) 117 mL/min/1.73m??? Normal >=60 [facility] Comment on above: Order Comment: Speci men Type: BLOOD SPECIMENOrdering Facility: [facility] Address: [address] [place] [address] Result Comment: Brenda mated Glomerular Filtration Rate [...] actual GFR. Performed By: #### 2 4323-8 ####[facility] LABCLIA [id number] [place] [address] Glucose [Mass/Vol] 98 mg/dL Normal 74-99 [facility] Comment on above: Order Comment: Cecili valencia Type: BLOOD SPECIMENOrdering Facility: [facility] Address: [address] [place] [address] Result Comment: The [place] Diabetes Association (ADA) provides guidance for cutoff [...] Standards of Medical Care in Diabetes 2016, [place] Diabetes Association. Diabetes Care. 2016.39(Suppl 1). Performed By: #### 2 4323-8 ####[facility] LABCLIA [id number] [place] [address] Potassium [Moles/Vol] 4.5 mmol/L Normal 3.7-5.1 [facility] Comment on above: Order Comment: Speci men Type: BLOOD SPECIMENOrdering Facility: [facility] Address: [address] [place] [address] Performed By: #### 2 4323-8 ####[facility] LABCLIA [id number] [place] [address] Protein [Mass/Vol] 7.3 g/dL Normal 6.3-8.0 [facility] Comment on above: Order Comment: Speci men Type: BLOOD SPECIMENOrdering Facility: [facility] Address: [address] [place] [address] Performed By: #### 2 4323-8 ####[facility] LABCLIA [id number] [place] [address] Sodium [Moles/Vol] 142 mmol/L Normal 136-144 [facility] Comment on above: Order Comment: Speci men Type: BLOOD SPECIMENOrdering Facility: [facility] Address: [address] [place] [address] Performed By: #### 2 4323-8 ####[facility] LABCLIA [id number] [place] [address] Urea nitrogen [Mass/Vol] 10 mg/dL Normal 7-21 [facility] Comment on above: Order Comment: Speci men Type: BLOOD SPECIMENOrdering Facility: [facility] Address: [address] [place] [address] Performed By: #### 2 4323-8 ####[facility] LABIA [id number] [place] [address] HCV Ab Ser Qlon 02-25-2024 HCV Ab Ql (S) Negative Normal Negative [facility] Comment on above: Order Comment: Speci men Type: BLOOD SPECIMENOrdering Facility: [facility] Address: [address] [place] [address] Result Comment: The result suggests no evidence of active infection with Hepatitis C virus. Should recent infection be suspected, repeat testing may be considered 4-6 weeks after this draw. Performed By: #### 1 6128-1 ####[facility] LABCLIA [id number] [place] [address] [place] HIV 1+2 Ab IA Qlon 4 HIV 1 and 2 Ab IA.rapid Nom (S/P/Bld) Normal [facility] Comment on above: Order Comment: Speci men Type: BLOOD SPECIMEN [facility]ing [facility] Address: [address] [place] [address] Result Comment: Test not indicated. Performed By: #### 5 5454-3 #### [facility] CLIA [id number] [address] [place] [address] [place] HIV 1+2 Ab+HIV1 p24 Ag IA Ql Non-Reactive Normal Nonreactive [facility] Comment on above: Order Comment: Speci men Type: BLOOD SPECIMEN [facility]ing [facility] Address: [address] [place] [address] Performed By: #### 5 5454-3 #### [facility] CLIA [id number] [address] [place] [address] [place] HIV immunoassay testing algorithm interpretation (S/P/Bld) [Interp] Normal [facility] Comment on above: Order Comment: Speci men Type: BLOOD SPECIMEN [facility] Address: [address] [place] [address] Result Comment: No e vidence of HIV-1 or HIV-2 infection. Should recent infection be suspected, repeat testing may be considered 2-3 weeks after this draw. [place] Rev. Code 3701.243(E): This information has been [...] diagnoses. Performed By: #### 5 5454-3 #### [facility] CLIA [id number] [address] [place] [address] OF [facility] HbA1c (Bld)on 02-25-2024 Average glucose Estimated from glycated hemoglobin (Bld) [Mass/Vol] 111 mg/dL Normal [facility] Comment on above: Order Comment: Speci men Type: BLOOD SPECIMEN [facility]ing [facility] Address: [address] [place] [address] Result Comment: eAG: (Estimated average glucose) is a calculated value from HgbA1c and is sales representative printing of the average blood glucose level in the last 2-3 month period. Performed By: #### 5 5454-3 #### [facility] CLIA [id number] [address] [place] [address] [place] OF [facility] HbA1c (Bld) [Mass fraction] 5.5 % Normal 4.3-5.6 [facility] Comment on above: Order Comment: Speci men Type: BLOOD SPECIMEN [facility]ing [facility] Address: [address] [place] [address] Result Comment: [place] Diabetes Association guidelines indicate that patients with HgbA1c in the range 5.7-6.4% are at increased risk for development of diabetes, and intervention by lifestyle modification may be beneficial. HgbA1c greater or equal to 6.5% is considered diagnostic of diabetes. Performed By: #### 5 5454-3 #### [facility] CLIA [id number] [address] [place] [address] [place] Lipid 1996 panelon 4 Cholesterol [Mass/Vol] 142 mg/dL Normal <200 [facility] Comment on above: Order Comment: Speci men Type: BLOOD SPECIMEN [facility] Address: [address] [place] [address] Result Comment: <200 mg/dL, Desirable 200-239 mg/dL, Borderline high >239 mg/dL, High Performed By: #### 5 5454-3 #### [facility] CLIA [id number] [address] [place] [address] Cholesterol in HDL [Mass/Vol] 72 mg/dL Normal >39 [facility] Comment on above: Order Comment: Philip birmingham Type: BLOOD SPECIMEN [facility] Address: [address] [place] [address] Result Comment: 40-5 9 mg/dL, Acceptable >59 mg/dL, High: Negative risk factor for coronary heart disease <40 mg/dL, Low: Positive risk factor for coronary heart disease Performed By: #### 5 5454-3 #### [facility] CLIA [id number] [address] [place] [address] Cholesterol in LDL [Mass/Vol] 60 mg/dL Normal <100 [facility] Comment on above: Order Comment: Philip birmingham Type: BLOOD SPECIMEN [facility] Address: [address] [place] [address] Result Comment: <100 mg/dL, Optimal 100-129 mg/dL, Near optimal/above optimal 130-159 mg/dL, Borderline high 160-189 mg/dL, High >189 mg/dL, Very high Secondary prevention optimal LDL Cholesterol levels are recommended to be < 70 mg/dL Performed By: #### 5 5454-3 #### [facility] CLIA [id number] [address] [place] [address] OF [facility] Cholesterol in LDL/Cholesterol in HDL [Mass ratio] 0.83 {ratio} Normal <2.54 [facility] Comment on above: Order Comment: Philip valencia Type: BLOOD SPECIMEN Order[facility]: [facility] Address: [address] [place] [address] Result Comment: Refe rence: 1. National Cholesterol Education Program ATP III Guideline At-A-Glance Quick Desk Reference: National Heart, Lung, and Blood [place]. National Institutes of Health. 2001: NIH Publication No. 01-3305. 2. An International Atherosclerosis Society position paper: global recommendations for the management of dyslipidemia: executive summary, Atherosclerosis. 2014: 232(2):410-413. Performed By: #### 5 5454-3 #### [facility] CLIA [id number] [address] [place] [address] [place] Cholesterol in VLDL [Mass/Vol] 10 mg/dL Normal <30 [facility] Comment on above: Order Comment: Philip men Type: BLOOD SPECIMEN [facility] Address: [address] [place] [address] Performed By: #### 5 5454-3 #### [facility] CLIA [id number] [address] [place] [address] [place] Cholesterol non HDL [Mass/Vol] 70 mg/dL Normal <130 [facility] Comment on above: Order Comment: Philip birmingham Type: BLOOD SPECIMEN [facility]ing [facility] Address: [address] [place] [address] Result Comment: <130 mg/dL, Optimal 130-159 mg/dL, Near optimal/above optimal 160-189 mg/dL, Borderline high 190-219 mg/dL, High >219 mg/dL, Very high Secondary prevention optimal non HDL Cholesterol levels are recommended to be <100 mg/dL Performed By: #### 5 5454-3 #### [facility] CLIA [id number] [address] [place] [address] [place] Cholesterol.total/Chol esterol in HDL [Mass ratio] 1.97 {ratio} Normal <5.10 [facility] Comment on above: Order Comment: Philip birmingham Type: BLOOD SPECIMEN [facility] Address: [address] [place] [address] Performed By: #### 5 5454-3 #### [facility] CLIA [id number] [address] [place] [address] [place] FASTING TIME 12 hrs Normal [facility] Comment on above: Order Comment: Philip men Type: BLOOD SPECIMEN [facility] Address: [address] [place] [address] Performed By: #### 5 5454-3 #### [facility] CLIA [id number] [address] [place] [address] [place] Triglyceride [Mass/Vol] 51 mg/dL Normal <150 [facility] Comment on above: Order Comment: Speci men Type: BLOOD SPECIMEN [facility] Address: [address] [place] [address] Result Comment: <150 mg/dL, Normal 150-199 mg/dL, Borderline high 200-499 mg/dL, High >499 mg/dL, Very high Performed By: #### 5 5454-3 #### [facility] CLIA [id number] [address] [place] [address] [place] CBC with Diffon 01-13-2024 Abs. Basophil 0.08 k/uL Normal 0.00-0.20 [facility] Comment on above: Performed By: #### F EBVALERIO Munroe, FERI #### [facility] [address] [place] [address] Medical Office Receptionist Assistant: Harpal Adair MD Abs.Imm.Granulocyte 0.05 k/uL Normal 0.00-0.30 [facility] Comment on above: Performed By: #### F EBVALERIO Munroe, FERI #### [facility] [address] [place] [address] Medical Office Receptionist Assistant: Harpal Adair MD Abs.Neutrophil (Seg) 7.68 k/uL Normal 1.50-8.10 [facility] Comment on above: Performed By: #### F EBShaneka CDP, FERI #### [facility] [address] [place] [address] Medical Office Receptionist Assistant: Harpal Adair MD Basophils/100 WBC (Bld) 1 % Normal 0-2 [facility] Comment on above: Performed By: #### F EBC CDP, FERI #### [facility] [address] [place] [address] Medical Office Receptionist Assistant: Harpal Adair MD Eosinophils (Bld) [#/Vol] 0.25 10*3/uL Normal 0.00-0.44 [facility] Comment on above: Performed By: #### F EBC, CDP, FERI #### [facility] [address] [place] [address] Medical Office Receptionist Assistant: Harpal Adair MD Eosinophils/100 WBC (Bld) 2 % Normal 1-4 [facility] Comment on above: Performed By: #### F EBC, CDP, FERI #### [facility] [address] [place] [address] Medical Office Receptionist Assistant: Harpal Adair MD Erythrocyte distribution width (RBC) [Ratio] 18.6 % High 11.8-14.4 [facility] Comment on above: Performed By: #### F EBC, CDP, FERI #### [facility] [address] [place] [address] Medical Office Receptionist Assistant: Harpal Adair MD Hematocrit (Bld) [Volume fraction] 36.7 % Normal 36.3-47.1 [facility] Comment on above: Performed By: #### F EBC, CDP, FERI #### [facility] [address] [place] [address] Medical Office Receptionist Assistant: Harpal Adair MD Hemoglobin (Bld) [Mass/Vol] 11.3 g/dL Low 11.9-15.1 [facility] Comment on above: Performed By: #### F EBC, CDP, FERI #### [facility] [address] [place] [address] Medical Office Receptionist Assistant: Harpal Adair MD Immature granulocytes/100 WBC (Bld) 0 % Normal 0 [facility] Comment on above: Performed By: #### F EBC, CDP, FERI #### [address] [address] Medical Office Receptionist Assistant: Harpal Adair MD Lymphocytes (Bld) [#/Vol] 2.30 10*3/uL Normal 1.10-3.70 [facility] Comment on above: Performed By: #### F EBC, CDP, FERI #### [place] [address] Medical Office Receptionist Assistant: Harpal Adair MD Lymphocytes/100 WBC (Bld) 21 % Low 24-43 [facility] Comment on above: Performed By: #### F EBC CDP, FERI #### [place] [address] Medical Office Receptionist Assistant: Harpal Adair MD MCH (RBC) [Entitic mass] 28.4 pg Normal 25.2-33.5 [facility] Comment on above: Performed By: #### F EBC CDP, FERI #### [place] [address] Medical Office Receptionist Assistant: Harpal Adair MD MCHC (RBC) [Mass/Vol] 30.8 g/dL Normal 28.4-34.8 [facility] Comment on above: Performed By: #### F EBC CDP, FERI #### [place] [address] Medical Office Receptionist Assistant: Harpal Adair MD MCV (RBC) [Entitic vol] 92.2 fL Normal 82.6-102.9 [facility] Comment on above: Performed By: #### F EBC CDP, FERI #### [address] [address] Medical Office Receptionist Assistant: Harpal Adair MD Monocytes (Bld) [#/Vol] 0.77 10*3/uL Normal 0.10-1.20 [facility] Comment on above: Performed By: #### F EBC, CDP, FERI #### [facility] [address] [place] [address] Medical Office Receptionist Assistant: Harpal Adair MD Monocytes/100 WBC (Bld) 7 % Normal 3-12 [facility] Comment on above: Performed By: #### F EBC, CDP, FERI #### [facility] [address] [place] [address] Medical Office Receptionist Assistant: Harpal Adair MD Neutrophil (Seg) 69 % High 36-65 [facility] Comment on above: Performed By: #### F EBC, CDP, FERI #### [facility] [address] [place] [address] Medical Office Receptionist Assistant: Harpal Adair MD NRBC Automated 0.0 per 100 WBC Normal 0.0 [facility] Comment on above: Performed By: #### F EBC, CDP, FERI #### [facility] [address] [place] [address] Medical Office Receptionist Assistant: Harpal Adair MD Platelet mean volume (Bld) [Entitic vol] 11.4 fL Normal 8.1-13.5 [facility] Comment on above: Performed By: #### F EBC, CDP, FERI #### [facility] [address] [place] [address] Medical Office Receptionist Assistant: Harpal Adair MD Platelets (Bld) [#/Vol] 387 10*3/uL Normal 138-453 [facility] Comment on above: Performed By: #### F EBC, CDP, FERI #### [facility] [address] [place] [address] Medical Office Receptionist Assistant: Harpal Adair MD RBC (Bld) [#/Vol] 3.98 10*6/uL Normal 3.95-5.11 [facility] Comment on above: Performed By: #### F EBC, CDP, FERI #### [facility] [address] [place] [address] Medical Office Receptionist Assistant: Harpal Adair MD RBC morphology finding Nom (Bld) ANISOCYTOSIS PRESENT Normal [facility] Comment on above: Performed By: #### F EBC CDP, FERI #### [facility] [address] [place] [address] Medical Office Receptionist Assistant: Harpal Adair MD WBC (Bld) [#/Vol] 11.1 10*3/uL Normal 3.5-11.3 [facility] Comment on above: Performed By: #### F VALERIO TO FERI #### [facility] [address] [place] [address] Medical Office Receptionist Assistant: Harpal Adair MD Ferritinon 01-13-2024 Ferritin [Mass/Vol] 9 ng/mL Low 13-150 [facility] Comment on above: Result Comment: FERRITIN Reference Ranges: Adult Males 20 - 60 years: 30 - 400 ng/mL Adult females 17 - 60 years: 13 - 150 ng/mL Adults greater than 60 years: no established reference range Pediatrics: no established reference range Performed By: #### F VALERIO TO, FERI #### [facility] [address] [place] [address] Medical Office Receptionist Assistant: Harpal Adair MD Iron Binding Cap.on 01-13-20 24 % Fe Saturation 9 % Low 20-55 [facility] Comment on above: Performed By: #### F EBVALERIO Munroe, FERI #### [facility] [address] [place] [address] Medical Office Receptionist Assistant: Harpal Adair MD Iron [Mass/Vol] 37 ug/dL Normal 37-145 [facility] Comment on above: Performed By: #### F EBShaneka CDP, FERI #### [facility] [address] [place] [address] Medical Office Receptionist Assistant: Harpal Adair MD Total Fe Binding Cap 390 ug/dL Normal 250-450 [facility] Comment on above: Performed By: #### F EBC, CDP, FERI #### [facility] [address] [place], [place] [id number] Medical Office Receptionist Assistant: Harpal Adair MD Unbound Fe Bind Cap 353 ug/dL High 112-347 [facility] Comment on above: Performed By: #### F EBC, CDP, FERI #### [facility] [address], [place] [id number] Medical Office Receptionist Assistant: MD Ernesto Naylor [facility] SHAZIA CHOU ([id number]) 1990 F Date Time Provider Department 01/05/24 ELIA BAIRES [facility] During your visit today, we recorded [...] 60 mg by mouth once daily. - ilaktjnxzumm-[id number]-F A-vit K (BARIATRIC MULTIVITAMINS) 45 mg iron- [...] by ELIA BAIRES on 01/05/24 Normal [facility] TOXICOLOGY SCRN W/CONF,URINE on 01-05-2024 Amphetamines Confirm (U) [Mass/Vol] Negative Negative [facility] Comment on above: Cutoff threshold at 1000 ng/mL. Barbiturates Urine Negative Negative [facility] Comment on above: Cutoff threshold at 200 [...] review of laboratory results Abnormal [facility] Opiates Screen Ql (U) Negative Negative [facility] Comment on above: Cutoff threshold at 300 ng/mL. oxyCODONE cutoff Screen (U) [Mass/Vol] Negative Negative [facility] Comment on above: Cutoff threshold at 100 ng/mL. Phencyclidine Ql (U) Negative Negative [facility] Comment on above: Cutoff threshold at 25 ng/mL. Immunoassay screen only. Cross reactivity with other substances can occur with immunoassay screening. Detection of any drug(s) in this urine toxicology panel is presumptive only. These tests are for medical purposes only and should not be used for compliance monitoring, legal, or forensic use. [facility] CANNABINOID CONF, URon 01-03 Cannabinoids Confirm (U) [Mass/Vol] 153 ng/mL High <16 [facility] Comment on above: Order Comment: Speci men Type: URINE SPECIMENOrdering Facility: [facility] Address: [address] [place] [address] Result Comment: Tetr ahydrocannabinol carboxylic acid (THCA) is a metabolite of usidd-6-nhpvfsfcpykdyhatxuyh which is the main active component of marijuana. Presence of THCA indicates use of marijuana. Performed By: #### C ANNCONFU ####[facility] [id number] [place] [address] [place] NOTE ([facility]) Normal [facility] Comment on above: Order Comment: Speci men Type: URINE SPECIMENOrdering Facility: [facility] Address: [address] [place] [address] Result Comment: This test is for medical use only. This test was developed and its performance characteristics determined by [facility]'s [facility] ([facility]). It has not been cleared or approved by the FDA. [facility] is regulated under CLIA as qualified to perform high-complexity testing. This test is used for clinical purposes. It should not be regarded as investigational or for research. Performed By: #### [facility] ####[facility] [id number] [place] [id number] [facility] CNOVon 01-04-2024 CNOV Office Visit (FPNRMO C) SHAZIA CHOU ([id number]) 1990 F Date Time Provider Department 01/04/24 9:20 AM ELIA BAIRES [facility] During your visit today, we recorded [...] She says that she is originally from [facility] however came up to here today to [...] to establish with a new psychiatrist at [facility] in [place]. She also sees a counselor weekly. Current [...] 1 (more content not included)... Normal [facility] SPECIMEN VALIDITY, URINEon 0 01-04-2024 CHROMATE,URINE <10 Normal <50 [facility] Comment on above: Order Comment: Speci men Type: URINE SPECIMENOrdering Facility: [facility] Address: [address] [place] [address] Performed By: #### L [id number] ####[facility] [id number] [place] [address] [place] CREATININE,URINE 33.7 mg/dL Normal 20.0-300.0 [facility] Comment on above: Order Comment: Speci men Type: URINE SPECIMENOrdering Facility: [facility] Address: [address] [place] [address] Performed By: #### L [id number] ####[facility] [id number] [place] [address] [place] NITRITES,URINE <50 Normal <500 [facility] Comment on above: Order Comment: Speci men Type: URINE SPECIMENOrdering Facility: [facility] Address: [address] [place] [address] Performed By: #### L [id number] ####[facility] [id number] [place] [address] [place] OXIDANTS,URINE 70 mg/L Normal <200 [facility] Comment on above: Order Comment: Speci men Type: URINE SPECIMENOrdering Facility: [facility] Address: [address] [place] [address] Performed By: #### L [id number] ####[facility] [id number] [place] [address] [place] pH (U) 5.6 [pH] Normal 4.5-8.0 [facility] Comment on above: Order Comment: Speci men Type: URINE SPECIMENOrdering Facility: [facility] Address: [address] [place] [address] Performed By: #### L [id number] ####[facility] [id number] [place] [address] [place] SPEC GRAVITY,UR 1.019 Normal 1.003-1.035 [facility] Comment on above: Order Comment: Speci men Type: URINE SPECIMENOrdering Facility: [facility] Address: [address] [place] [address] Performed By: #### L [id number] ####[facility] [id number] [place] [address] [place] SPECIMEN VALIDITY QUALITY Specimen quality results within acceptable limits Normal [facility] Comment on above: Order Comment: Speci men Type: URINE SPECIMENOrdering Facility: [facility] Address: [address] [place] [address] Performed By: #### L [id number] ####[facility] [id number] [place] [address] [place] TOXICOLOGY SCRN W/CONF,URINE on 01-04-2024 Amphetamines Confirm (U) [Mass/Vol] Negative Normal Negative [facility] Comment on above: Order Comment: Speci men Type: URINE SPECIMENOrdering Facility: [facility] Address: [address] [place] [address] Result Comment: Cuto ff threshold at 1000 ng/mL. Performed By: #### U TOXRF ####[facility] [id number] [place] [address] [place] BARBITURATES, URINE Negative Normal Negative [facility] Comment on above: Order Comment: Speci men Type: URINE SPECIMENOrdering Facility: [facility] Address: [address] [place] [address] Result Comment: Cuto ff threshold at 200 ng/mL. Performed By: #### U TOXRF ####[facility] [id number] [place] [address] [place] BENZODIAZEPINES, UR Negative Normal Negative [facility] Comment on above: Order Comment: Speci men Type: URINE SPECIMENOrdering Facility: [facility] Address: [address] [place] [address] Result Comment: Cuto ff threshold at 200 ng/mL. Performed By: #### U TOXRF ####[facility] [id number] [place] [address] [place] Cannabinoids Screen Ql (U) Sent for confirmation Abnormal Negative [facility] Comment on above: Order Comment: Speci men Type: URINE SPECIMENOrdering Facility: [facility] Address: [address] [place] [address] Result Comment: Cuto ff threshold at 50 ng/mL. Performed By: #### U TOXRF ####[facility] [id number] [place] [address] [place] Cocaine Ql (U) Negative Normal Negative [facility] Comment on above: Order Comment: Speci men Type: URINE SPECIMENOrdering Facility: [facility] Address: [address] [place] [address] Result Comment: Cuto ff threshold at 300 ng/mL. Performed By: #### U TOXRF ####[facility] [id number] [place] [address] [place] Ethanol (U) [Mass/Vol] <11 Normal <11 [facility] Comment on above: Order Comment: Speci men Type: URINE SPECIMENOrdering Facility: [facility] Address: [address] [place] [address] Performed By: #### U TOXRF ####[facility] [id number] [place] [address] [place] Opiates Screen Ql (U) Negative Normal Negative [facility] Comment on above: Order Comment: Speci men Type: URINE SPECIMENOrdering Facility: [facility] Address: [address] [place] [address] Result Comment: Cuto ff threshold at 300 ng/mL. Performed By: #### U TOXRF ####[facility] [id number] [place] [address] [place] oxyCODONE cutoff Screen (U) [Mass/Vol] Negative Normal Negative [facility] Comment on above: Order Comment: Speci men Type: URINE SPECIMENOrdering Facility: [facility] Address: [address] [place] [address] Result Comment: Cuto ff threshold at 100 ng/mL. Performed By: #### U TOXRF ####[facility] [id number] [place] [address] [place] Phencyclidine Ql (U) Negative Normal [facility] Comment on above: Order Comment: Speci men Type: URINE SPECIMENOrdering Facility: [facility] Address: [address] [place] [address] Result Comment: Cuto ff threshold at 25 ng/mL. Performed By: #### U TOXRF ####[facility] [id number] [facility] [place] [place] [address] [place] ED Noteon 2023 ED Note [id number]#1.00T IFF Normal [facility] Activated partial thrombopla stin time (aPTT) in platelet poor plasma by coagulation aOrdered By: Marii Christiansen on 12-10-2023 aPTT Coag (PPP) [Time] 28.8 s 25.1-36.5 [facility] Comment on above: A hematocrit value g reater than 55% may lead to inaccurate results in coagulation testing. Patients having hematocrit values >55% require a special collection tube for coagulation studies. Please contact the laboratory at [phone] for redraw instructions. Basophils Auto (Bld) [#/Vol] Ordered By: Marii Christiansen on 12-10-2023 Basophils (Bld) [#/Vol] 0.1 10*3/uL 0.0-0.2 [facility] Basophils/100 WBC Auto (Bld) Ordered By: Marii Christiansen on 12-10-2023 Basophils/100 WBC (Bld) 1.0 % . [facility] Calcium [Mass/volume] in Ser um or PlasmaOrdered By: Marii Christiansen on 12-10-2023 Calcium [Mass/Vol] 9.3 mg/dL 8.6-10.3 [facility] Carbon dioxide, total [Moles /volume] in Serum or PlasmaOrdered By: Marii Christiansen on 12-10-2023 CO2 [Moles/Vol] 26.2 mmol/L 21.0-31.0 [facility] Chloride [Moles/volume] in S tushar or PlasmaOrdered By: Marii Christiansen on 12-10-2023 Chloride [Moles/Vol] 108 mmol/L 98-107 [facility] Choriogonadotropin.beta subu nit [Units/volume] in Serum or PlasmaOrdered By: Marii Christiansen on 12-10-2023 HCG.beta subunit Qn Negative [facility] Creatine kinase [Enzymatic a ctivity/volume] in Serum or PlasmaOrdered By: Marii Christiansen on 12-10-2023 CK [Catalytic activity/Vol] 90 U/L 30-223 [facility] Creatinine [Mass/volume] in Serum or PlasmaOrdered By: Marii Christiansen on 12-10-2023 Creatinine [Mass/Vol] 0.63 mg/dL 0.60-1.20 [facility] Eosinophils Auto (Bld) [#/Vo l]Ordered By: Marii Christiansen on 12-10-2023 Eosinophils (Bld) [#/Vol] 0.1 10*3/uL 0.0-0.45 [facility] Eosinophils/100 WBC Auto (Bl d)Ordered By: Marii Christiansen on 12-10-2023 Eosinophils/100 WBC (Bld) 1.7 % . [facility] Erythrocyte distribution wid th Auto (RBC) [Ratio]Ordered By: Marii Christiansen on 12-10-2023 Erythrocyte distribution width (RBC) [Ratio] 18.2 % 11.9-15.3 [facility] Glucose [Mass/volume] in Ser um or PlasmaOrdered By: Marii Christiansen on 12-10-2023 Glucose [Mass/Vol] 84 mg/dL 70-100 [facility] Comment on above: ADA recommended refe rence rangeRandom Glucose Reference Range is dependent on time and content of last meal. Glucose of more than 200 mg/dL in a nonstressed, ambulatory subject supports the diagnosis of Diabetes Mellitus. Hematocrit Auto (Bld) [Volum e fraction]Ordered By: Marii Christiansen on 12-10-2023 Hematocrit (Bld) [Volume fraction] 34.4 % 34.0-46.4 [facility] Hemoglobin [Mass/volume] in BloodOrdered By: Marii Christiansen on 12-10-2023 Hemoglobin (Bld) [Mass/Vol] 11.2 g/dL 11.8-15.4 [facility] INR in Platelet poor plasma by Coagulation assayOrdered By: Marii Christiansen on 12-10-2023 INR Coag (PPP) [Relative time] 1.0 {INR} [facility] Comment on above: INR Therapeutic Rang [...] RBC Auto (Bld) [#/Vol] 7.1 10*3/uL 3.8-11.6 [facility] Lymphocytes Auto (Bld) [#/Vo l]Ordered By: Marii Christiansen on 12-10-2023 Lymphocytes (Bld) [#/Vol] 1.6 10*3/uL 1.00-4.8 [facility] Lymphocytes/100 WBC Auto (Bl d)Ordered By: Marii Christiansen on 12-10-2023 Lymphocytes/100 WBC (Bld) 21.9 % . [facility] MCH Auto (RBC) [Entitic mass ]Ordered By: Marii Christiansen on 12-10-2023 MCH (RBC) [Entitic mass] 28.8 pg 24.7-34.3 [facility] MCHC Auto (RBC) [Mass/Vol]Or dered By: Marii Christiansen on 12-10-2023 MCHC (RBC) [Mass/Vol] 32.5 g/dL 32.0-35.0 [facility] MCV Auto (RBC) [Entitic vol] Ordered By: Marii Christiansen on 12-10-2023 MCV (RBC) [Entitic vol] 88.7 fL 80-100 [facility] Magnesium [Mass/volume] in S tushar or PlasmaOrdered By: Marii Christiansen on 12-10-2023 Magnesium [Mass/Vol] 1.9 mg/dL 1.9-2.7 [facility] Monocyte distribution width [Entitic volume] in Blood by AutomatedOrdered By: Marii Christiansen on 12-10-2023 Monocyte distribution width Auto (Bld) [Entitic vol] 16.94 % 0.00-20.00 [facility] Monocytes Auto (Bld) [#/Vol] Ordered By: Marii Christiansen on 12-10-2023 Monocytes (Bld) [#/Vol] 0.5 10*3/uL 0.0-0.8 [facility] Monocytes/100 WBC Auto (Bld) Ordered By: Marii Christiansne on 12-10-2023 Monocytes/100 WBC (Bld) 6.4 % . [facility] Natriuretic peptide B [Mass/ Vol]Ordered By: Marii Christiansen on 12-10-2023 Natriuretic peptide B (Bld) [Mass/Vol] 12.0 pg/mL 5-100 [facility] Neutrophils Auto (Bld) [#/Vo l]Ordered By: Marii Christiansen on 12-10-2023 Neutrophils (Bld) [#/Vol] 4.9 10*3/uL 1.8-7.7 [facility] Neutrophils/100 WBC Auto (Bl d)Ordered By: Marii Christiansen on 12-10-2023 Neutrophils/100 WBC (Bld) 69.0 % . [facility] No Panel InformationOrdered By: Marii Christiansen on 12-10-2023 Estimated GFR (CKD-EPI) > 60.0 mL/Min [facility] Creatinine Clearance (Chem 144.76 [facility] Nucleated erythrocytes [Pres ence] in Blood by Automated countOrdered By: Marii Christiansen on 12-10-2023 Nucleated RBC Auto Ql (Bld) 0.1 /100{WBC} 0-0.5 [facility] Phosphate [Mass/volume] in S tushar or PlasmaOrdered By: Marii Christiansen on 12-10-2023 Phosphate [Mass/Vol] 3.7 mg/dL 2.5-4.5 [facility] Platelet mean volume Auto (B ld) [Entitic vol]Ordered By: Marii Christiansen on 12-10-2023 Platelet mean volume (Bld) [Entitic vol] 9.2 fL 6.3-10.7 [facility] Platelets Auto (Bld) [#/Vol] Ordered By: Marii Christiansen on 12-10-2023 Platelets (Bld) [#/Vol] 331 10*3/uL 150-450 [facility] Potassium [Moles/volume] in Serum or PlasmaOrdered By: Marii Christiansen on 12-10-2023 Potassium [Moles/Vol] 4.0 mmol/L 3.5-5.1 [facility] Prothrombin time (PT)Ordered By: Marii Christiansen on 12-10-2023 PT Coag (PPP) [Time] 11.3 s 9.0-12.9 [facility] Comment on above: A hematocrit value g reater than 55% may lead to inaccurate results in coagulation testing. Patients having hematocrit values >55% require a special collection tube for coagulation studies. Please contact the laboratory at [phone] for redraw instructions. RBC Auto (Bld) [#/Vol]Ordere d By: Marii Christiansen on 12-10-2023 RBC (Bld) [#/Vol] 3.88 10*6/uL 3.60-5.00 [facility] Serum or plasma anion gap de terminationOrdered By: Marii Christiansen on 12-10-2023 Anion gap [Moles/Vol] 9.8 mmol/L 6.0-15.0 [facility] Sodium [Moles/volume] in Ser um or PlasmaOrdered By: Marii Christiansen on 12-10-2023 Sodium [Moles/Vol] 140 mmol/L 136-145 [facility] Thyrotropin [Units/volume] i n Serum or PlasmaOrdered By: Marii Christiansen on 12-10-2023 TSH Qn 0.61 m[IU]/L 0.45-5.33 [facility] Thyroxine (T4) free [Mass/vo lume] in Serum or PlasmaOrdered By: Marii Christiansen on 12-10-2023 Free T4 [Mass/Vol] 0.82 ng/dL 0.61-1.12 [facility] Troponin I.cardiac [Mass/vol ume] in Serum or Plasma by Detection limit <= 0.01 ng/Ordered By: Marii Christiansen on 12-10-2023 Troponin I.cardiac DL <= 0.01 ng/mL [Mass/Vol] < 2.3 pg/mL 0.0-15.0 [facility] Urea nitrogen [Mass/volume] in Serum or PlasmaOrdered By: Marii Christiansen on 12-10-2023 Urea nitrogen [Mass/Vol] 14 mg/dL 04-07 [facility] WBC Auto (Bld) [#/Vol]Ordere d By: Marii Christiansen on 12-10-2023 WBC (Bld) [#/Vol] 7.1 10*3/uL 3.8-11.6 [facility] Consent for Treatmenton 11-13 Consent for Treatment [id number]#1.00T IFF Normal [facility] MA Mamm Diag w/CAD if [...] very important to your health. The current [employer] and National Comprehensive Cancer [...] Mychal Cabezas M.D. Transcribed by: MARCO Technologist: [facility] Assessment: BI-RADS Category 1-Negative Recommendation: Normal interval follow-up Normal [facility] US Breast Unilateral Lt Comp leteon 12-09-2023 US Breast Unilateral Lt Complete Exam Date/Time: 12/09/2023 10:07 EDT Reason for Exam: N63.21 Report PLEASE REFER TO THE MAMMOGRAM REPORT. Ordering Provider: Jennie Durand FINAL REPORT Dictated: 12/09/2023 4:28 pm Mychal Cabezas M.D. Signed (Electronic Signature): 12/09/2023 4:28 pm Signed by: Mychal Cabezas M.D. Transcribed by: MARCO Technologist: RUTH Normal [facility] Physician Orderon 12-08-2023 Physician Order [id number]#1.00 TIFF Normal [facility] CT ABDOMEN PELVIS W IV [...] Jacob Dillon DO 10/25/23 Final result Normal [facility] CBC panel Auto (Bld)on 08-31 Erythrocyte distribution width (RBC) [Ratio] 14.7 % Normal 11.5-15.0 [facility] Comment on above: Order Comment: Speci men Type: BLOOD SPECIMEN [facility] Address: [place] [address] Performed By: #### 5 8410-2 #### [facility] CLIA [id number] [address] [place] [address] [place] Hematocrit (Bld) [Volume fraction] 36.9 % Normal 36.0-46.0 [facility] Comment on above: Order Comment: Speci men Type: BLOOD SPECIMEN [facility] Address: [address] [place] [address] Performed By: #### 5 8410-2 #### [facility] CLIA [id number] [address] [place] [address] [place] Hemoglobin (Bld) [Mass/Vol] 11.7 g/dL Normal 11.5-15.5 [facility] Comment on above: Order Comment: Speci men Type: BLOOD SPECIMEN [facility] Address: [address] [place] [address] Performed By: #### 5 8410-2 #### [facility] CLIA [id number] [address] [place] [address] [place] MCH (RBC) [Entitic mass] 29.8 pg Normal 26.0-34.0 [facility] Comment on above: Order Comment: Speci men Type: BLOOD SPECIMEN [facility] Address: [address] [place] [address] Performed By: #### 5 8410-2 #### [facility] CLIA [id number] [address] [place] [address] [place] MCHC (RBC) [Mass/Vol] 31.7 g/dL Normal 30.5-36.0 [facility] Comment on above: Order Comment: Speci men Type: BLOOD SPECIMEN [facility] Address: [address] [place] [address] Performed By: #### 5 8410-2 #### [facility] CLIA [id number] [address] [place] [address] [place] MCV (RBC) [Entitic vol] 93.9 fL Normal 80.0-100.0 [facility] Comment on above: Order Comment: Speci men Type: BLOOD SPECIMEN [facility] Address: [address] [place] [address] Performed By: #### 5 8410-2 #### [facility] CLIA [id number] [address] [place] [address] [place] Nucleated RBC (Bld) [#/Vol] 10*3/uL Normal <0.01 [facility] Comment on above: Order Comment: Speci men Type: BLOOD SPECIMEN [facility] Address: [address] [place] [address] Performed By: #### 5 8410-2 #### [facility] CLIA [id number] [place] [address] [place] Platelet mean volume (Bld) [Entitic vol] 11.1 fL Normal 9.0-12.7 [facility] Comment on above: Order Comment: Speci men Type: BLOOD SPECIMEN [facility] Address: [address] [place] [address] Performed By: #### 5 8410-2 #### [facility] CLIA [id number] [address] [place] [address] [place] Platelets (Bld) [#/Vol] 297 10*3/uL Normal 150-400 [facility] Comment on above: Order Comment: Speci men Type: BLOOD SPECIMEN [facility] Address: [address] [place] [address] Performed By: #### 5 8410-2 #### [facility] CLIA [id number] [address] [place] [address] [place] RBC (Bld) [#/Vol] 3.93 10*6/uL Normal 3.90-5.20 [facility] Comment on above: Order Comment: Speci men Type: BLOOD SPECIMEN [facility]ing [facility] Address: [address] [place] [address] Performed By: #### 5 8410-2 #### [facility] CLIA [id number] [address] [place] [address] [place] WBC (Bld) [#/Vol] 6.82 10*3/uL Normal 3.70-11.00 [facility] Comment on above: Order Comment: Speci men Type: BLOOD SPECIMEN [facility]ing Facility: [facility] Address: [address] [place] [address] Performed By: #### 5 8410-2 #### [facility] CLIA [id number] [address] [place] [address] [place] Comprehensive metabolic 2000 panelon 08-31-2023 Albumin [Mass/Vol] 4.4 g/dL Normal 3.9-4.9 [facility] Comment on above: Order Comment: Speci men Type: BLOOD SPECIMEN [facility]ing Facility[facility] Address: [address] [place] [address] Performed By: #### L IPNF, #### [facility] CLIA [id number] [address] [place] [address] [place] ALP [Catalytic activity/Vol] 75 U/L Normal 34-123 [facility] Comment on above: Order Comment: Speci men Type: BLOOD SPECIMEN [facility]ing Facility[facility] Address: [address] [place] [address] Performed By: #### L IPNF, #### [facility] CLIA [id number] [address] [place] [address] [place] ALT [Catalytic activity/Vol] 16 U/L Normal 7-38 [facility] Comment on above: Order Comment: Speci men Type: BLOOD SPECIMEN [facility]ing Facility[facility] Address: [address] [place] [address] Performed By: #### L IPNF, #### [facility] CLIA [id number] [address] [place] [address] [place] Anion gap [Moles/Vol] 11 mmol/L Normal 9-18 [facility] Comment on above: Order Comment: Speci men Type: BLOOD SPECIMEN [facility]ing Facility[facility] Address: [address] [place] [address] Performed By: #### L IPNF, #### [facility] CLIA [id number] [address] [place] [address] [place] AST [Catalytic activity/Vol] 21 U/L Normal 13-35 [facility] Comment on above: Order Comment: Speci men Type: BLOOD SPECIMEN [facility]ing Facility[facility] Address: [address] [place] [address] Performed By: #### L IPNF, #### [facility] CLIA [id number] [address] [place] [address] [place] Bilirubin [Mass/Vol] 0.2 mg/dL Normal 0.2-1.3 [facility] Comment on above: Order Comment: Speci men Type: BLOOD SPECIMEN [facility]ing Facility[facility] Address: [address] [place] [address] Performed By: #### L IPNF, #### [facility] CLIA [id number] [address] [place] [address] [place] Calcium [Mass/Vol] 9.7 mg/dL Normal 8.5-10.2 [facility] Comment on above: Order Comment: Speci men Type: BLOOD SPECIMEN Ordering Facility: [facility] Address: [address] [place] [address] Performed By: #### L IPNF, #### [facility] CLIA [id number] [address] [place] [address] [place] Chloride [Moles/Vol] 106 mmol/L High 97-105 [facility] Comment on above: Order Comment: Speci men Type: BLOOD SPECIMEN Ordering Facility: [facility] Address: [address] [place] [address] Performed By: #### L IPNF, #### [facility] CLIA [id number] [address] [place] [address] [place] CO2 [Moles/Vol] 25 mmol/L Normal 22-30 [facility] Comment on above: Order Comment: Speci men Type: BLOOD SPECIMEN Ordering Facility: [facility] Address: [address] [place] [address] Performed By: #### L IPNF, #### [facility] CLIA [id number] [address] [place] [address] [place] Creatinine [Mass/Vol] 0.55 mg/dL Low 0.58-0.96 [facility] Comment on above: Order Comment: Speci men Type: BLOOD SPECIMEN Ordering Facility: [facility] Address: [address] [place] [address] Performed By: #### L IPMARTHA, 11405-2 #### [facility] CLIA [id number] [address] [place] [address] [place] Creatinine and Glomerular filtration rate.predicted panel (S/P/Bld) 124 mL/min/1.73m??? Normal >=60 [facility] Comment on above: Order Comment: Philip birmingham Type: BLOOD SPECIMEN Ordering Facility: [facility] Address: [address] [place] [address] Result Comment: Brenda mated Glomerular Filtration Rate [...] reflect actual GFR. Performed By: #### L IPMARTHA, 61411-5 #### [facility] CLIA [id number] [place] [address] [place] Glucose [Mass/Vol] 93 mg/dL Normal 74-99 [facility] Comment on above: Order Comment: Philip birmingham Type: BLOOD SPECIMEN Ordering Facility: [facility] Address: [address] [place] [address] Result Comment: The [place] Diabetes Association (ADA) provides guidance for cutoff [...] Standards of Medical Care in Diabetes 2016, [place] [employer] Association. Diabetes Care. 2016.39(Suppl 1). Performed By: #### L IPNF, 06104-5 #### [facility] CLIA [id number] [address] [place] [address] [place] Potassium [Moles/Vol] 4.7 mmol/L Normal 3.7-5.1 [facility] Comment on above: Order Comment: Speci men Type: BLOOD SPECIMEN Ordering Facility: [facility] Address: [address] [place] [address] Performed By: #### L IPNF, #### [facility] CLIA [id number] [address] [place] [address] [place] Protein [Mass/Vol] 7.3 g/dL Normal 6.3-8.0 [facility] Comment on above: Order Comment: Speci men Type: BLOOD SPECIMEN Ordering Facility: [facility] Address: [address] [place] [address] Performed By: #### L IPNF, #### [facility] CLIA [id number] [address] [place] [address] [place] Sodium [Moles/Vol] 142 mmol/L Normal 136-144 [facility] Comment on above: Order Comment: Speci men Type: BLOOD SPECIMEN Ordering Facility: [facility] Address: [address] [place] [address] Performed By: #### L IPNF, #### [facility] CLIA [id number] [address] [place] [address] [place] Urea nitrogen [Mass/Vol] 9 mg/dL Normal 7-21 [facility] Comment on above: Order Comment: Speci men Type: BLOOD SPECIMEN Ordering Facility: [facility] Address: [address] [place] [address] Performed By: #### L IPNF, #### [facility] CLIA [id number] [address] [place] [address] [place] LIPID PANEL, NONFASTINGon Cholesterol [Mass/Vol] 154 mg/dL Normal <200 [facility] Comment on above: Order Comment: Speci men Type: BLOOD SPECIMEN Ordering Facility: [facility] Address: [address] [place] [address] Result Comment: <200 mg/dL, Desirable 200-239 mg/dL, Borderline high >239 mg/dL, High Performed By: #### L IPNF, 76967-1 #### [facility] CLIA [id number] [address] HDL CHOLESTEROL, NF 69 mg/dL Normal >39 [facility] Comment on above: Order Comment: Philip valencia Type: BLOOD SPECIMEN Ordering Facility: [facility] Address: [address] [place] [address] Result Comment: 40-5 9 mg/dL, Acceptable >59 mg/dL, High: Negative risk factor for coronary heart disease <40 mg/dL, Low: Positive risk factor for coronary heart disease Performed By: #### L IPNF, 70231-3 #### [facility] CLIA [id number] [address] [place] [address] LDL CHOLESTEROL, NF 66 mg/dL Normal <100 [facility] Comment on above: Order Comment: Philip [facility] Type: BLOOD SPECIMEN Ordering Facility: [facility] Address: [address] [place] [address] Result Comment: <100 mg/dL, Optimal 100-129 mg/dL, Near optimal/above optimal 130-159 mg/dL, Borderline high 160-189 mg/dL, High >189 mg/dL, Very high Secondary prevention optimal LDL Cholesterol levels are recommended to be < 70 mg/dL Performed By: #### L IPNF, 72346-3 #### [facility] CLIA [id number] [address] [place] [address] LDL/HDL RATIO, NF 0.96 mg/dL Normal <2.54 [facility] Comment on above: Order Comment: Philip valencia Type: BLOOD SPECIMEN Ordering Facility: [facility] Address: [address] [place] [address] Result Comment: Refe rence: 1. National Cholesterol Education Program ATP III Guideline At-A-Glance Quick Desk Reference: National Heart, Lung, and Blood [place]. National Institutes of Health. 2001: NIH Publication No. 01-3305. 2. An International Atherosclerosis Society position paper: global recommendations for the management of dyslipidemia: executive summary, Atherosclerosis. 2014: 232(2):410-413. Performed By: #### L IPNF, 33426-4 #### [facility] CLIA [id number] [address] [place] [address] [place] NON HDL CHOL, NF 85 mg/dL Normal <130 [facility] Comment on above: Order Comment: Speci men Type: BLOOD SPECIMEN Ordering Facility: [facility] Address: [address] [place] [address] Result Comment: <130 mg/dL, Optimal 130-159 mg/dL, Near optimal/above optimal 160-189 mg/dL, Borderline high 190-219 mg/dL, High >219 mg/dL, Very high Secondary prevention optimal non HDL Cholesterol levels are recommended to be <100 mg/dL Performed By: #### L IPNF, #### [facility] CLIA [id number] [address] [place] [address] OF [facility] T CHOL/HDL RATIO NF 2.23 mg/dL Normal <5.10 [facility] Comment on above: Order Comment: Speci men Type: BLOOD SPECIMEN Ordering Facility: [facility] Address: [address] [place] [address] Performed By: #### L IPNF, #### [facility] CLIA [id number] [address] [place] [address] [place] TRIGLYCERIDES, NF 96 mg/dL Normal <150 [facility] Comment on above: Order Comment: Speci men Type: BLOOD SPECIMEN Ordering Facility: [facility] Address: [address] [place] [address] Result Comment: <150 mg/dL, Normal 150-199 mg/dL, Borderline high 200-499 mg/dL, High >499 mg/dL, Very high Performed By: #### L IPNF, #### [facility] CLIA [id number] [address] [place] [address] [place] VLDL CHOLESTEROL, NF 19 mg/dL Normal <30 [facility] Comment on above: Order Comment: Speci men Type: BLOOD SPECIMEN Ordering Facility: [facility] Address: [address] [place] [address] Performed By: #### L IPNF, 00784-1 #### [facility] CLIA [id number] [address] [place] [address] [place] PHOSPHATIDYLETHANOL (PETH)on 08-31-2023 EER PETH See Note Normal [facility] Comment on above: Order Comment: Speci men Type: BLOOD SPECIMEN Ordering Facility: [facility] Address: [address] [place] [address] Result Comment: Auth orized individuals can access the [facility] Enhanced Report using the following link: [email or web address] Performed By: #### P ETH #### [facility] CLIA [id number] [address] [place] [address] PETH 16:0/18.2 (PLPETH) 244 ng/mL Normal [facility] Comment on above: Order Comment: Speci men Type: BLOOD SPECIMEN Ordering Facility: [facility] Address: [address] [place] [address] Result Comment: Refe rence ranges are not well established. Performed By: #### P ETH #### [facility] CLIA [id number] [address] [place] [address] PETH 16:0/18:1 (POPETH) 169 ng/mL Normal [facility] Comment on above: Order Comment: Speci men Type: BLOOD SPECIMEN Ordering Facility: [facility] Address: [address] [place] [address] Result Comment: PEth 16:0/18:1 (POPEth) Less than 10 ng/mL............Not detected Less than 20 ng/mL............Abstinence or light alcohol consumption 20 - 200 ng/mL................Moderate alcohol consumption Greater than 200 ng/mL........Heavy alcohol consumption or chronic alcohol use (Reference: Sophie Gonzalez and Crystal Helm 2018 J. Forensic Sci) Performed By: #### P ETH #### [facility] CLIA [id number] [address] [place] [address] PETH INTERPRETATION See Note Normal [facility] Comment on above: Order Comment: Speci men Type: BLOOD SPECIMEN Ordering Facility: [facility] Address: [address], [place] [address] Result Comment: Phos phatidylethanol (PEth) is a [...] developed and its performance characteristics determined by [facility]. It has not been cleared or approved by the U.S. Food and Drug Administration. This test was performed in a CLIA-certified laboratory and is intended for clinical purposes. Performed By: [facility] [address] [place], [place] [id number] On Site Coordinator: Osmar Salcido MD, PhD CLIA Number: [id number] Performed By: #### P ETH #### [facility] CLIA [id number] [address] [place] [address] MRI ABDOMEN W WO CONTRAST MR CPon [...] Troy Bond MD 08/20/23 Final result Normal [facility] Vitamin Aon 08-16-2023 Interpretation Normal Normal [facility] Comment on above: Result Comment: (NOT E) This test was developed and its performance characteristics determined by [facility]. It has not been cleared or approved by the US Food and Drug Administration. This test was performed in a CLIA certified laboratory and is intended for clinical purposes. Performed By: [facility] [address] [place] [address] On Site Coordinator: Osmar Salcido MD, PhD CLIA Number: [id number] Performed By: #### P THNCA, FEBC, FERI, GLYHGB, VD25 #### [address] [address] Medical Office Receptionist Assistant: Harpal Adair MD #### AGNES OLIVO, AZN #### [facility] [address] [place] [address] Medical Office Receptionist Assistant: Patricio Zuñiga MD #### ANGEL, MG, CDP #### [address] [place], [place] [address] Medical Office Receptionist Assistant: Hilton Armenta MD Retinol (Vitamin A) 0.60 mg/L Normal 0.30-1.20 [facility] Comment on above: Performed By: #### P DENNISA, FEBC, FERI, GLYHGB, VD25 #### [address] [address] Medical Office Receptionist Assistant: Harpal Adair MD #### AGNES OLIVO, AZN #### [facility] [address] [place] [id number] Medical Office Receptionist Assistant: Patricio Zuñiga MD #### MG ANGEL, CDP #### [address] [place] [address] Medical Office Receptionist Assistant: Hilton Armenta MD Retinyl Palmitate <0.02 Normal 0.00-0.10 [facility] Comment on above: Performed By: #### P DENNISA, FEBC, FERI, GLYHGB, VD25 #### [address] [address] Medical Office Receptionist Assistant: Harpal Adair MD #### AGNES OLIVO, AZN #### [facility] [address] [place], [place] [id number] Medical Office Receptionist Assistant: Patricio Zuñiga MD #### ANGEL MG, CDP #### [address] [place] [address] Medical Office Receptionist Assistant: Hilton Armenta MD Alanine aminotransferase [En zymatic activity/volume] in Serum or PlasmaOrdered By: Yoli Norris on 08-15-2023 ALT [Catalytic activity/Vol] 18 U/L 7-52 [facility] Albumin [Mass/volume] in Ser um or Plasma by Bromocresol green (BCG) dye binding methoOrdered By: Yoli Norris on 08-15-2023 Albumin BCG dye [Mass/Vol] 4.6 g/dL 3.5-5.7 [facility] Alkaline phosphatase [Enzyma tic activity/volume] in Serum or PlasmaOrdered By: Yoli Norris on 08-15-2023 ALP [Catalytic activity/Vol] 77 U/L 34-104 [facility] Aspartate aminotransferase [ Enzymatic activity/volume] in Serum or PlasmaOrdered By: Yoli Norris on 08-15-2023 AST [Catalytic activity/Vol] 18 U/L 13-39 [facility] Basophils Auto (Bld) [#/Vol] Ordered By: Yoli Norris on 08-15-2023 Basophils (Bld) [#/Vol] 0.1 10*3/uL 0.0-0.2 [facility] Basophils/100 WBC Auto (Bld) Ordered By: Yoli Norris on 08-15-2023 Basophils/100 WBC (Bld) 0.5 % . [facility] Bilirubin Test strip Ql (U)O rdered By: Yoli Norris on 08-15-2023 Bilirubin Ql (U) Negative Negative [facility] Bilirubin.direct [Mass/volum e] in Serum or PlasmaOrdered By: Yoli Norris on 08-15-2023 Bilirubin.direct [Mass/Vol] 0.00 mg/dL 0.03-0.18 [facility] Comment on above: If the DBIL is less than 0.1, IBIL is not able to becalculated. Bilirubin.total [Mass/volume ] in Serum or PlasmaOrdered By: Yoli Norris on 08-15-2023 Bilirubin [Mass/Vol] 0.3 mg/dL 0.3-1.0 [facility] Calcium [Mass/volume] in Ser um or PlasmaOrdered By: Yoli Norris on 08-15-2023 Calcium [Mass/Vol] 9.8 mg/dL 8.6-10.3 [facility] Carbon dioxide, total [Moles /volume] in Serum or PlasmaOrdered By: Yoli Norris on 08-15-2023 CO2 [Moles/Vol] 21.8 mmol/L 21.0-31.0 [facility] Chloride [Moles/volume] in S tushar or PlasmaOrdered By: Yoli Norris on 08-15-2023 Chloride [Moles/Vol] 109 mmol/L 98-107 [facility] Color Auto (U)Ordered By: Maribel Norris on 08-15-2023 Color (U) Yellow Yellow [facility] Creatinine [Mass/volume] in Serum or PlasmaOrdered By: Yoli Norris on 08-15-2023 Creatinine [Mass/Vol] 0.76 mg/dL 0.60-1.20 [facility] Eosinophils Auto (Bld) [#/Vo l]Ordered By: Yoli Norris on 08-15-2023 Eosinophils (Bld) [#/Vol] 0.2 10*3/uL 0.0-0.45 [facility] Eosinophils/100 WBC Auto (Bl d)Ordered By: Yoli Norris on 08-15-2023 Eosinophils/100 WBC (Bld) 2.1 % . [facility] Erythrocyte distribution wid th Auto (RBC) [Ratio]Ordered By: Yoli Norris on 08-15-2023 Erythrocyte distribution width (RBC) [Ratio] 15.1 % 11.9-15.3 [facility] Globulin Calc (S) [Mass/Vol] Ordered By: Yoli Norris on 08-15-2023 Globulin (S) [Mass/Vol] 3.2 g/dL [facility] Glucose [Mass/volume] in Ser um or PlasmaOrdered By: Yoli Norris on 08-15-2023 Glucose [Mass/Vol] 85 mg/dL 70-100 [facility] Comment on above: ADA recommended refe rence rangeRandom Glucose Reference Range is dependent on time and content of last meal. Glucose of more than 200 mg/dL in a nonstressed, ambulatory subject supports the diagnosis of Diabetes Mellitus. HCG ( test) Renan andino Ql (U)Ordered By: Yoli Norris on 08-15-2023 HCG ( test) Ql (U) Negative [facility] Hematocrit Auto (Bld) [Volum e fraction]Ordered By: Yoli Norris on 08-15-2023 Hematocrit (Bld) [Volume fraction] 37.2 % 34.0-46.4 [facility] Hemoglobin [Mass/volume] in BloodOrdered By: Yoli Norris on 08-15-2023 Hemoglobin (Bld) [Mass/Vol] 12.2 g/dL 11.8-15.4 [facility] Ketones Auto test strip (U) [Mass/Vol]Ordered By: Yoli Norris on 08-15-2023 Ketones (U) [Mass/Vol] Negative Negative Fi [facility] Leukocytes [#/volume] correc caitlin for nucleated erythrocytes in Blood by Automated counOrdered By: Yoli Norris on 08-15-2023 WBC corrected for nucl RBC Auto (Bld) [#/Vol] 11.3 10*3/uL 3.8-11.6 [facility] Lipase [Enzymatic activity/v olume] in Serum or PlasmaOrdered By: Yoli Norris on 08-15-2023 Lipase [Catalytic activity/Vol] 32.0 U/L 11.0-82.0 [facility] Lymphocytes Auto (Bld) [#/Vo l]Ordered By: Yoli Norris on 08-15-2023 Lymphocytes (Bld) [#/Vol] 2.0 10*3/uL 1.00-4.8 [facility] Lymphocytes/100 WBC Auto (Bl d)Ordered By: Yoli Norris on 08-15-2023 Lymphocytes/100 WBC (Bld) 17.8 % . [facility] MCH Auto (RBC) [Entitic mass ]Ordered By: Yoli Norris on 08-15-2023 MCH (RBC) [Entitic mass] 30.2 pg 24.7-34.3 [facility] MCHC Auto (RBC) [Mass/Vol]Or dered By: Yoli Norris on 08-15-2023 MCHC (RBC) [Mass/Vol] 32.7 g/dL 32.0-35.0 [facility] MCV Auto (RBC) [Entitic vol] Ordered By: Yoli Norris on 08-15-2023 MCV (RBC) [Entitic vol] 92.4 fL 80-100 [facility] Monocyte distribution width [Entitic volume] in Blood by AutomatedOrdered By: Yoli Norris on 08-15-2023 Monocyte distribution width Auto (Bld) [Entitic vol] 15.46 % 0.00-20.00 [facility] Monocytes Auto (Bld) [#/Vol] Ordered By: Yoli Norris on 08-15-2023 Monocytes (Bld) [#/Vol] 0.6 10*3/uL 0.0-0.8 [facility] Monocytes/100 WBC Auto (Bld) Ordered By: Yoli Norris on 08-15-2023 Monocytes/100 WBC (Bld) 5.0 % . [facility] Neutrophils Auto (Bld) [#/Vo l]Ordered By: Yoli Norris on 08-15-2023 Neutrophils (Bld) [#/Vol] 8.4 10*3/uL 1.8-7.7 [facility] Neutrophils/100 WBC Auto (Bl d)Ordered By: Yoli Norris on 08-15-2023 Neutrophils/100 WBC (Bld) 74.6 % . [facility] Nitrite Test strip Ql (U)Ord ered By: Yoli Norris on 08-15-2023 Nitrite Ql (U) Negative Negative [facility] No Panel InformationOrdered By: Yoli Norris on 08-15-2023 Estimated GFR (CKD-EPI) > 60.0 mL/Min [facility] Creatinine Clearance (Chem 117.62 [facility] Nucleated erythrocytes [Pres ence] in Blood by Automated countOrdered By: Yoli Norris on 08-15-2023 Nucleated RBC Auto Ql (Bld) 0.0 /100{WBC} 0-0.5 [facility] Platelet mean volume Auto (B ld) [Entitic vol]Ordered By: Yoli Norris on 08-15-2023 Platelet mean volume (Bld) [Entitic vol] 9.2 fL 6.3-10.7 [facility] Platelets Auto (Bld) [#/Vol] Ordered By: Yoli Norris on 08-15-2023 Platelets (Bld) [#/Vol] 321 10*3/uL 150-450 [facility] Potassium [Moles/volume] in Serum or PlasmaOrdered By: Yoli Norris on 08-15-2023 Potassium [Moles/Vol] 3.5 mmol/L 3.5-5.1 [facility] Protein Auto test strip (U) [Mass/Vol]Ordered By: Yoli Norris on 08-15-2023 Protein (U) [Mass/Vol] Negative Negative Fi [facility] Protein [Mass/volume] in Ser um or PlasmaOrdered By: Yoli Norris on 08-15-2023 Protein [Mass/Vol] 7.8 g/dL 6.4-8.9 [facility] RBC Auto (Bld) [#/Vol]Ordere d By: Yoli Norris on 08-15-2023 RBC (Bld) [#/Vol] 4.03 10*6/uL 3.60-5.00 [facility] Serum or plasma albumin/glob ulin mass ratioOrdered By: Yoli Norris on 08-15-2023 Albumin/Globulin [Mass ratio] 1.4 {ratio} [facility] Serum or plasma anion gap de terminationOrdered By: Yoli Norris on 08-15-2023 Anion gap [Moles/Vol] 12.7 mmol/L 6.0-15.0 [facility] Serum or plasma non-glucuron idated bilirubin measurement (mass/volume)Ordered By: Yoli Norris on 08-15-2023 Bilirubin.indirect [Mass/Vol] 0.3 mg/dL [facility] Sodium [Moles/volume] in Ser um or PlasmaOrdered By: Yoli Norris on 08-15-2023 Sodium [Moles/Vol] 140 mmol/L 136-145 [facility] Specific gravity Auto test s trip (U) [Rel density]Ordered By: Yoli Norris on 08-15-2023 Specific gravity (U) [Rel density] 1.007 1.001-1.030 [facility] Urea nitrogen [Mass/volume] in Serum or PlasmaOrdered By: Yoli Norris on 08-15-2023 Urea nitrogen [Mass/Vol] 11 mg/dL 7-25 [facility] Urine clarity by refractomet ry automatedOrdered By: Yoli Norris on 08-15-2023 Clarity Refractometry automated (U) Clear Clear [facility] Urine glucose measurement by automated test strip (mass/volume)Ordered By: Yoli Norris on 08-15-2023 Glucose Auto test strip (U) [Mass/Vol] Normal mg/dL Normal [facility] Urine hemoglobin detection b y automated test stripOrdered By: Yoli Norris on 08-15-2023 Hemoglobin Auto test strip Ql (U) Negative Negative [facility] Urine leukocyte esterase det ection by automated test stripOrdered By: Yoli Norris on 08-15-2023 Leukocyte esterase Auto test strip Ql (U) Negative Negative [facility] Urobilinogen Auto test strip (U) [Mass/Vol]Ordered By: Yoli Norris on 08-15-2023 Urobilinogen (U) [Mass/Vol] Normal mg/dL Normal [facility] Vitamin B1on 08-15-2023 Vitamin B1 145 nmol/L Normal 70-180 [facility] Comment on above: Result Comment: (NOT [...] developed and its performance characteristics determined by [facility]. It has not been cleared or approved by the US Food and Drug Administration. This test was performed in a CLIA certified laboratory and is intended for clinical purposes. Performed By: [facility] [address] [place] [address] On Site Coordinator: Osmar Salcido MD, PhD CLIA Number: [id number] Performed By: #### P THNCA, FEBC, FERI, GLYHGB, VD25 #### [facility] [address] [place] [address] Medical Office Receptionist Assistant: Harpal Adair MD #### AGNES OLIVO, AZN #### [facility] [address] [place], [place] [id number] Medical Office Receptionist Assistant: Patricio Zuñiga MD #### CP, MG, CDP #### [facility] [address] [place] [address] Medical Office Receptionist Assistant: Hilton Armenta MD WBC Auto (Bld) [#/Vol]Ordere d By: Yoli Norris on 08-15-2023 WBC (Bld) [#/Vol] 11.3 10*3/uL 3.8-11.6 [facility] pH Auto test strip (U)Ordere d By: Yoli Norris on 08-15-2023 pH (U) 8.0 [pH] 5.0-9.0 [facility] Zinc, Serumon 08-14-2023 Zinc, Serum 95.3 ug/dL Normal 60.0-120.0 [facility] Comment on above: Result Comment: (NOT [...] developed and its performance characteristics determined by [facility]. It has not been cleared or approved by the US Food and Drug Administration. This test was performed in a CLIA certified laboratory and is intended for clinical purposes. Performed By: [facility] [address] [place] [address] On Site Coordinator: Osmar Salcido MD, PhD CLIA Number: [id number] Performed By: #### P THNCA, FEBC, FERI, GLYHGB, VD25 #### [facility] [address] [place] [address] Medical Office Receptionist Assistant: Harpal Adair MD #### AGNES OLIVO, AZN #### [facility] [address] [place] [address] Medical Office Receptionist Assistant: Patricio Zuñiga MD #### CP, MG, CDP #### [facility] [address] [place] [address] Medical Office Receptionist Assistant: Hilton Armenta MD B12/Folate Panelon Folic Acid >20.0 Normal >4.8 [facility] Comment on above: Performed By: #### P BAILEY, ALFONSO, FERI, GLYHGB, VD25 #### [facility] [address] [place] [address] Medical Office Receptionist Assistant: Harpal Adair MD #### AGNES OLIVO, AZN #### [facility] [address] [place] [address] Medical Office Receptionist Assistant: Patricio Zuñiga MD #### MG ANGEL, CDP #### [address] [place] [address] Medical Office Receptionist Assistant: Hilton Armenta MD Cobalamin (Vitamin B12) [Mass/Vol] 632 pg/mL Normal 232-1245 [facility] Comment on above: Performed By: #### Kina AVALOS, ALFONSO, FERI, GLYHGB, VD25 #### [place] [id number] [place] [address] Medical Office Receptionist Assistant: Harpal Adair MD #### AGNES OLIVO, AZN #### [facility] [address] [place], [place] [id number] Medical Office Receptionist Assistant: Patricio Zuñiga MD #### MG ANGEL, CDP #### [address] [place] [address] Medical Office Receptionist Assistant: Hilton Armenta MD CBC with Diffon 08-12-2023 Abs. Basophil 0.06 k/uL Normal 0.00-0.20 [facility] Comment on above: Performed By: #### P DENNISA, FEBC, FERI, GLYHGB, VD25 #### [facility] [address] [place] [address] Medical Office Receptionist Assistant: Harpal Adair MD #### AGNES OLIVO, AZN #### [facility] [address] [place] [address] Medical Office Receptionist Assistant: Patricio Zuñiga MD #### MG ANGEL, CDP #### [address] [place] [address] Medical Office Receptionist Assistant: Hilton Armenta MD Abs.Imm.Granulocyte 0.03 k/uL Normal 0.00-0.30 [facility] Comment on above: Performed By: #### P THNCA, FEBC, FERI, GLYHGB, VD25 #### [address] [id number] Medical Office Receptionist Assistant: Harpal Adair MD #### AGNES OLIVO, AZN #### [facility] [address] [place], [place] [id number] Medical Office Receptionist Assistant: Patricio Zuñiga MD #### MG ANGEL, CDP #### [address] [place] [id number] Medical Office Receptionist Assistant: Hilton Armenta MD Abs.Neutrophil (Seg) 6.33 k/uL Normal 1.50-8.10 [facility] Comment on above: Performed By: #### P DENNISA, FEBC, FERI, GLYHGB, VD25 #### [address] [address] Medical Office Receptionist Assistant: Harpal Adair MD #### AGNES OLIVO, AZN #### [facility] [address] [place] [address] Medical Office Receptionist Assistant: Patricio Zuñiga MD #### MG ANGEL, CDP #### [address] [place] [address] Medical Office Receptionist Assistant: Hilton Armenta MD Basophils/100 WBC (Bld) 1 % Normal 0-2 [facility] Comment on above: Performed By: #### P THNCA, FEBC, FERI, GLYHGB, VD25 #### [address] [address] Medical Office Receptionist Assistant: Harpal Adair MD #### AGNES OLIVO, AZN #### [facility] [address] [place], [place] [id number] Medical Office Receptionist Assistant: Patricio Zuñiga MD #### CP, MG, CDP #### [address] [place] [address] Medical Office Receptionist Assistant: Hilton Armenta MD Eosinophils (Bld) [#/Vol] 0.43 10*3/uL Normal 0.00-0.44 [facility] Comment on above: Performed By: #### ALFONSO COSTA, ARNOLOD, GLYHGB, VD25 #### [address] [address] Medical Office Receptionist Assistant: Harpal Adair MD #### AGNES OLIVO, AZN #### [facility] [address] [place], [place] [id number] Medical Office Receptionist Assistant: Patricio Zuñiga MD #### MG ANGEL, CDP #### [address] [place] [address] Medical Office Receptionist Assistant: Hilton Armenta MD Eosinophils/100 WBC (Bld) 5 % High 1-4 [facility] Comment on above: Performed By: #### ALFONSO COSTA, ASHLYI, GLYHGB, VD25 #### [address] [address] Medical Office Receptionist Assistant: Harpal Adair MD #### AGNES OLIVO, AZN #### [facility] [address] [place], [place] [id number] Medical Office Receptionist Assistant: Patricio Zuñiga MD #### ANGEL, MG, CDP #### [address] [place] [address] Medical Office Receptionist Assistant: Hilton Armenta MD Erythrocyte distribution width (RBC) [Ratio] 14.9 % High 11.8-14.4 [facility] Comment on above: Performed By: #### Kina AVALOS, FEBC, FERI, GLYHGB, VD25 #### [facility] [place] [address] Medical Office Receptionist Assistant: Harpal Adair MD #### AGNES OLIVO, AZN #### [facility] [address] [place], [place] [id number] Medical Office Receptionist Assistant: Patricio Zuñiga MD #### MG ANGEL, CDP #### [address] [place] [address] Medical Office Receptionist Assistant: Hilton Armenta MD Hematocrit (Bld) [Volume fraction] 38.0 % Normal 36.3-47.1 [facility] Comment on above: Performed By: #### Kina AVALOS, ALFONSO, FERI, GLYHGB, VD25 #### [address] [address] Medical Office Receptionist Assistant: Harpal Adair MD #### AGNES OLIVO, AZN #### [facility] [address] [place], [place] [id number] Medical Office Receptionist Assistant: Patricio Zuñiga MD #### ANGEL MG, CDP #### [address] [place] [address] Medical Office Receptionist Assistant: Hilton Armenta MD Hemoglobin (Bld) [Mass/Vol] 12.2 g/dL Normal 11.9-15.1 [facility] Comment on above: Performed By: #### P BAILEY, FEBC, FERI, GLYHGB, VD25 #### [address] [address] Medical Office Receptionist Assistant: Harpal Adair MD #### AGNES OLIVO, AZN #### [facility] [address] [place], [place] [id number] Medical Office Receptionist Assistant: Patricio Zuñiga MD #### CP, MG, CDP #### [address] [place] [address] Medical Office Receptionist Assistant: Hilton Armenta MD Immature granulocytes/100 WBC (Bld) 0 % Normal 0 [facility] Comment on above: Performed By: #### P THNCA, FEBC, FERI, GLYHGB, VD25 #### [facility] [address] [place] [address] Medical Office Receptionist Assistant: Harpal Adair MD #### AGNES OLIVO, AZN #### [facility] [address] [place], [place] [id number] Medical Office Receptionist Assistant: Patricio Zuñiga MD #### MG ANGEL, CDP #### [address] [place] [id number] Medical Office Receptionist Assistant: Hilton Armenta MD Lymphocytes (Bld) [#/Vol] 1.90 10*3/uL Normal 1.10-3.70 [facility] Comment on above: Performed By: #### P THNCA, FEBC, FERI, GLYHGB, VD25 #### [address] [address] Medical Office Receptionist Assistant: Harpal Adair MD #### AGNES OLIVO, AZN #### [facility] [address] [place], [place] [id number] Medical Office Receptionist Assistant: Patricio Zuñiga MD #### ANGEL, MG, CDP #### [address] [place] [address] Medical Office Receptionist Assistant: Hilton Armenta MD Lymphocytes/100 WBC (Bld) 20 % Low 24-43 [facility] Comment on above: Performed By: #### P THNCA, FEBC, FERI, GLYHGB, VD25 #### [address] [place] [address] Medical Office Receptionist Assistant: Harpal Adair MD #### AGNES OLIVO, AZN #### [facility] [address] [place], [place] [id number] Medical Office Receptionist Assistant: Patricio Zuñiga MD #### ANGEL, MG, CDP #### [address] [place] [address] Medical Office Receptionist Assistant: Hilton Armenta MD MCH (RBC) [Entitic mass] 29.9 pg Normal 25.2-33.5 [facility] Comment on above: Performed By: #### ALFONSO COSTA, FERI, GLYHGB, VD25 #### [address] [address] Medical Office Receptionist Assistant: Harpal Adair MD #### AGNES OLIVO, AZN #### [facility] [address] [address] Medical Office Receptionist Assistant: Patricio Zuñiga MD #### ANGEL, MG, CDP #### [address] [place] [address] Medical Office Receptionist Assistant: Hilton Armenta MD [facility] [Mass/Vol] 32.1 g/dL Normal 28.4-34.8 [facility] Comment on above: Performed By: #### ALFONSO COSTA, FERI, GLYHGB, VD25 #### [address] [address] Medical Office Receptionist Assistant: Harpal Adair MD #### AGNES OLIVO, AZN #### [facility] [address] [place] [address] Medical Office Receptionist Assistant: Patricio Zuñiga MD #### ANGEL, MG, CDP #### [address] [place] [address] Medical Office Receptionist Assistant: Hilton Armenta MD MCV (RBC) [Entitic vol] 93.1 fL Normal 82.6-102.9 [facility] Comment on above: Performed By: #### P BAILEY, JOSÉ LUISBC, FERI, GLYHGB, VD25 #### [address] [address] Medical Office Receptionist Assistant: Harpal Adair MD #### AGNES OLIVO, AZN #### [facility] [address] [place] [address] Medical Office Receptionist Assistant: Patricio Zuñiga MD #### ANGEL MG, CDP #### [address] [place] [address] Medical Office Receptionist Assistant: Hilton Armenta MD Monocytes (Bld) [#/Vol] 0.70 10*3/uL Normal 0.10-1.20 [facility] Comment on above: Performed By: #### Kina AVALOS, ALFONSO, FERI, GLYHGB, VD25 #### [address] [address] Medical Office Receptionist Assistant: Harpal Adair MD #### AGNES OLIVO, AZN #### [facility] [address] [place], [place] [id number] Medical Office Receptionist Assistant: Patricio Zuñiga MD #### ANGEL MG, CDP #### [address] [place] [id number] Medical Office Receptionist Assistant: Hilton Armenta MD Monocytes/100 WBC (Bld) 7 % Normal 3-12 [facility] Comment on above: Performed By: #### P BAILEY, FECHRIS, FERI, GLYHGB, VD25 #### [address] [address] Medical Office Receptionist Assistant: Harpal Adair MD #### AGNES OLIVO, AZN #### [facility] [address] [place], [place] [id number] Medical Office Receptionist Assistant: Patricio Zuñiga MD #### CP, MG, CDP #### [facility] [address] [place] [address] [address] [place], [place] [id number] Medical Office Receptionist Assistant: Hilton Armenta MD Neutrophil (Seg) 67 % High 36-65 [facility] Comment on above: Performed By: #### P THNCA, FEBC, FERI, GLYHGB, VD25 #### [address] [address] Medical Office Receptionist Assistant: Harpal Adair MD #### AGNES OLIVO, AZN #### [facility] [address] [place], [place] [id number] Medical Office Receptionist Assistant: Patricio Zuñiga MD #### ANGEL, MG, CDP #### [address] [place] [id number] Medical Office Receptionist Assistant: Hilton Armenta MD NRBC Automated 0.0 per 100 WBC Normal 0.0 [facility] Comment on above: Performed By: #### P THNCA, FEBC, FERI, GLYHGB, VD25 #### [address] [address] Medical Office Receptionist Assistant: Harpal Adair MD #### AGNES OLIVO, AZN #### [facility] [address] [place], [place] [id number] Medical Office Receptionist Assistant: Patricio Zuñiga MD #### CP, MG, CDP #### [address] [place] [address] Medical Office Receptionist Assistant: Hilton Armenta MD Platelet mean volume (Bld) [Entitic vol] 10.6 fL Normal 8.1-13.5 [facility] Comment on above: Performed By: #### P THNCA, FEBC, FERI, GLYHGB, VD25 #### [facility] [address] [place] [address] Medical Office Receptionist Assistant: Harpal Adair MD #### FARHADS, ARIANTB1, AZN #### [facility] [address] [place] [address] Medical Office Receptionist Assistant: Patricio Zuñiga MD #### CP, MG, CDP #### [address] [place], [place] [id number] Medical Office Receptionist Assistant: Hilton Armenta MD Platelets (Bld) [#/Vol] 355 10*3/uL Normal 138-453 [facility] Comment on above: Performed By: #### P THNCA, FEBC, FERI, GLYHGB, VD25 #### [address] [address] Medical Office Receptionist Assistant: Harpal Adair MD #### PALLAVI, ARIANTB1, AZN #### [facility] [address] [place], [place] [id number] Medical Office Receptionist Assistant: Patricio Zuñiga MD #### CP, MG, CDP #### [address] [place] [id number] Medical Office Receptionist Assistant: Hilton Armenta MD RBC (Bld) [#/Vol] 4.08 10*6/uL Normal 3.95-5.11 [facility] Comment on above: Performed By: #### P THNCA, FEBC, FERI, GLYHGB, VD25 #### [facility] [address] [place] [address] Medical Office Receptionist Assistant: Harpal Adair MD #### ARIAN OLIVOTB1, AZN #### [facility] [address] [place] [address] Medical Office Receptionist Assistant: Patricio Zuñiga MD #### CP, MG, CDP #### [facility] [address] [place], [place] [id number] Medical Office Receptionist Assistant: Hilton Armenta MD WBC (Bld) [#/Vol] 9.5 10*3/uL Normal 3.5-11.3 [facility] Comment on above: Performed By: #### P DENNISA, FEBC, FERI, GLYHGB, VD25 #### [facility] [address] [place] [address] Medical Office Receptionist Assistant: Harpal Adair MD #### AGNES OLIVO, AZN #### [facility] [address] [place] [address] Medical Office Receptionist Assistant: Patricio Zuñiga MD #### ANGEL, MG, CDP #### [address] [place] [address] Medical Office Receptionist Assistant: Hilton Armenta MD Comp Metabolic Profon 2022 Albumin [Mass/Vol] 4.5 g/dL Normal 3.5-5.2 [facility] Comment on above: Performed By: #### Kina AVALOS, ALFONSO, FERI, GLYHGB, VD25 #### [address] [address] Medical Office Receptionist Assistant: Harpal Adair MD #### AGNES OLIVO, AZN #### [facility] [address] [place] [address] Medical Office Receptionist Assistant: Patricio Zuñiga MD #### ANGEL MG, CDP #### [address] [place] [address] Medical Office Receptionist Assistant: Hilton Armenta MD Albumin/Glob Ratio 1.6 Normal 1.0-2.5 [facility] Comment on above: Performed By: #### P BAILEY, FEBC, FERI, GLYHGB, VD25 #### [facility] [address] [place] [address] Medical Office Receptionist Assistant: Harpal Adair MD #### AGNES OLIVO, AZN #### [facility] [address] [place], [place] [id number] Medical Office Receptionist Assistant: Patricio Zuñiga MD #### CP, MG, CDP #### [facility] [address] [place] [address] [place] [address] Medical Office Receptionist Assistant: Hilton Armenta MD Alkaline Phos 85 U/L Normal 35-104 [facility] Comment on above: Performed By: #### P THNCA, FEBC, FERI, GLYHGB, VD25 #### [facility] [address] [place] [address] Medical Office Receptionist Assistant: Harpal Adair MD #### AGNES OLIVO, AZN #### [facility] [address] [place], [place] [id number] Medical Office Receptionist Assistant: Patricio Zuñiga MD #### ANGEL, MG, CDP #### [address] [place] [address] Medical Office Receptionist Assistant: Hilton Armenta MD ALT [Catalytic activity/Vol] 21 U/L Normal 5-33 [facility] Comment on above: Performed By: #### P THNCA, FEBC, FERI, GLYHGB, VD25 #### [address] [address] Medical Office Receptionist Assistant: Harpal Adair MD #### AGNES OLIVO, AZN #### [facility] [address] [place], [place] [id number] Medical Office Receptionist Assistant: Patricio Zuñiga MD #### CP, MG, CDP #### [address] [place] [address] Medical Office Receptionist Assistant: Hilton Armenta MD Anion gap [Moles/Vol] 11 mmol/L Normal 9-17 [facility] Comment on above: Performed By: #### P THNCA, FEBC, FERI, GLYHGB, VD25 #### [address] [address] Medical Office Receptionist Assistant: Harpal Adair MD #### ARIAN OLIVOTB1, AZN #### [facility] [address] [place], [place] [id number] Medical Office Receptionist Assistant: Patricio Zuñiga MD #### CP, MG, CDP #### [facility] [address] [place], [place] [id number] Medical Office Receptionist Assistant: Hilton Armenta MD AST [Catalytic activity/Vol] 22 U/L Normal <32 [facility] Comment on above: Performed By: #### P DENNISA, FEBC, FERI, GLYHGB, VD25 #### [address] [id number] Medical Office Receptionist Assistant: Harpal Adair MD #### ARIAN OLIVOTB1, AZN #### [facility] [address] [place], [place] [id number] Medical Office Receptionist Assistant: Patricio Zuñiga MD #### ANGEL, MG, CDP #### [facility] [address] [place], [place] [id number] Medical Office Receptionist Assistant: Hilton Armenta MD Bilirubin [Mass/Vol] 0.2 mg/dL Low 0.3-1.2 [facility] Comment on above: Performed By: #### P GINCA, FEBC, FERI, GLYHGB, VD25 #### [address] [address] Medical Office Receptionist Assistant: Harpal Adair MD #### ARIAN OLIVOTB1, AZN #### [facility] [address] [place], [place] [id number] Medical Office Receptionist Assistant: Patricio Zuñiga MD #### CP, MG, CDP #### [facility] [address] [place], [place] [id number] Medical Office Receptionist Assistant: Hilton Armenta MD BUN/CRE Ratio 20 Normal 9-20 [facility] Comment on above: Performed By: #### P THNCA, FEBC, FERI, GLYHGB, VD25 #### [address] [address] Medical Office Receptionist Assistant: Harpal Adair MD #### AGNES OLIVO, AZN #### [facility] [address] [place] [address] Medical Office Receptionist Assistant: Patricio Zuñiga MD #### ANGEL, MG, CDP #### [address] [place] [address] Medical Office Receptionist Assistant: Hilton Armenta MD Calcium [Mass/Vol] 9.9 mg/dL Normal 8.6-10.4 [facility] Comment on above: Performed By: #### P DENNISA, FEBC, FERI, GLYHGB, VD25 #### [address] [address] Medical Office Receptionist Assistant: Harpal Adair MD #### AGNES OLIVO, AZN #### [facility] [address] [place], [place] [id number] Medical Office Receptionist Assistant: Patricio Zuñiga MD #### MG ANGEL, CDP #### [address] [place] [address] Medical Office Receptionist Assistant: Hilton Armenta MD Chloride [Moles/Vol] 107 mmol/L Normal 98-107 [facility] Comment on above: Performed By: #### P THNCA, FEBC, FERI, GLYHGB, VD25 #### [address] [address] Medical Office Receptionist Assistant: Harpal Adair MD #### AGNES OLIVO, AZN #### [facility] [address] [place] [address] Medical Office Receptionist Assistant: Patricio Zuñiga MD #### ANGEL, MG, CDP #### [address] [place] [id number] Medical Office Receptionist Assistant: Hilton Armenta MD CO2 [Moles/Vol] 23 mmol/L Normal 20-31 [facility] Comment on above: Performed By: #### P BAILEY, FECHRIS, FERI, GLYHGB, VD25 #### [place] [id number] [place] [address] Medical Office Receptionist Assistant: Harpal Adair MD #### AGNES OLIVO, AZN #### [facility] [address] [place], [place] [id number] Medical Office Receptionist Assistant: Patricio Zuñiga MD #### MG ANGEL, CDP #### [facility] [address] [place] [address] Medical Office Receptionist Assistant: Hilton Armenta MD Creatinine [Mass/Vol] 0.6 mg/dL Normal 0.5-0.9 [facility] Comment on above: Performed By: #### Kina AVALOS, ALFONSO, FERI, GLYHGB, VD25 #### [address] [address] Medical Office Receptionist Assistant: Harpal Adair MD #### AGNES OLIVO, AZN #### [facility] [address] [place], [place] [id number] Medical Office Receptionist Assistant: Patricio Zuñiga MD #### ANGEL MG, CDP #### [facility] [address] [place] [address] Medical Office Receptionist Assistant: Hilton Armenta MD GFR/1.73 sq M.predicted among non-blacks MDRD (S/P/Bld) [Vol rate/Area] mL/min/{1.73_m2} Normal >60 [facility] Comment on above: Result Comment: These [...] tubular secretion. Performed By: #### ALFONSO COSTA, ASHLYI, GLYHGB, VD25 #### [address] [address] Medical Office Receptionist Assistant: Harpal Adair MD #### AGNES OLIVO, AZN #### [facility] [address] [place] [address] Medical Office Receptionist Assistant: Patricio Zuñiga MD #### ANGEL, MG, CDP #### [address] [place] [address] Medical Office Receptionist Assistant: Hilton Armenta MD Glucose [Mass/Vol] 89 mg/dL Normal 70-99 [facility] Comment on above: Performed By: #### ALFONSO COSTA, ARNOLDO, GLYHGB, VD25 #### [address] [address] Medical Office Receptionist Assistant: Harpal Adair MD #### AGNES OLIVO, AZN #### [facility] [address] [id number] Medical Office Receptionist Assistant: Patricio Zuñiga MD #### ANGEL, MG, CDP #### [address] [place] [address] Medical Office Receptionist Assistant: Hilton Armenta MD Potassium [Moles/Vol] 4.3 mmol/L Normal 3.7-5.3 [facility] Comment on above: Performed By: #### ALFONSO COSTA, ASHLYI, GLYHGB, VD25 #### [address] [address] Medical Office Receptionist Assistant: Harpal Adair MD #### AGNES OLIVO, AZN #### [facility] [address] [place] [id number] Medical Office Receptionist Assistant: Patricio Zuñiga MD #### CP, MG, CDP #### [facility] [address] [place] [address] Medical Office Receptionist Assistant: Hilton Armenta MD Protein [Mass/Vol] 7.4 g/dL Normal 6.4-8.3 [facility] Comment on above: Performed By: #### P THNCA, FEBC, FERI, GLYHGB, VD25 #### [facility] [address] [place] [address] Medical Office Receptionist Assistant: Harpal Adair MD #### AGNES OLIVO, AZN #### [facility] [address] [place] [address] Medical Office Receptionist Assistant: Patricio Zuñiga MD #### ANGEL, MG, CDP #### [facility] [address] [place] [address] [place] [address] Medical Office Receptionist Assistant: Hilton Armenta MD Sodium [Moles/Vol] 141 mmol/L Normal 135-144 [facility] Comment on above: Performed By: #### P THNCA, FEBC, FERI, GLYHGB, VD25 #### [address] [address] Medical Office Receptionist Assistant: Harpal Adair MD #### AGNES OLIVO, AZN #### [facility] [address] [place] [address] Medical Office Receptionist Assistant: Patricio Zuñiga MD #### CP, MG, CDP #### [address] [place] [address] Medical Office Receptionist Assistant: Hilton Armenta MD Urea nitrogen [Mass/Vol] 12 mg/dL Normal 6-20 [facility] Comment on above: Performed By: #### P THNCA, FEBC, FERI, GLYHGB, VD25 #### [facility] [address] [place] [address] Medical Office Receptionist Assistant: Harpal Adair MD #### ARIAN OLIVOTB1, AZN #### [facility] [address] [place], [place] [id number] Medical Office Receptionist Assistant: Patricio Zuñiga MD #### CP, MG, CDP #### [facility] [address] [place] [address] Medical Office Receptionist Assistant: Hilton Armenta MD Ferritinon 08-12-2023 Ferritin [Mass/Vol] 12 ng/mL Low 13-150 [facility] Comment on above: Performed By: #### P DENNISA, FEBC, FERI, GLYHGB, VD25 #### [facility] [address] [place], [place] [id number] Medical Office Receptionist Assistant: Harpal Adair MD #### ARIAN OLIVOTB1, AZN #### [facility] [address] [place] [address] Medical Office Receptionist Assistant: Patricio Zuñiga MD #### CP, MG, CDP #### [facility] [address] [place] [address] [place] [address] Medical Office Receptionist Assistant: Hilton Armenta MD Hemoglobin A1Con Glucose [Mass/Vol] 114 mg/dL Normal [facility] Comment on above: Result Comment: The ADA and AACC recommend providing the estimated average glucose result to permit better patient understanding of their HBA1c result. Performed By: #### P THNCA, FEBC, FERI, GLYHGB, VD25 #### [facility] [address] [place] [address] Medical Office Receptionist Assistant: Harpal Adair MD #### ARIAN OLIVOTB1, AZN #### [facility] [address] [place], [place] [id number] Medical Office Receptionist Assistant: Patricio Zuñiga MD #### CP, MG, CDP #### [facility] [address] [place] [address] Medical Office Receptionist Assistant: Hilton Armenta MD HbA1c (Bld) [Mass fraction] 5.6 % Normal 4.0-6.0 [facility] Comment on above: Performed By: #### P THNCA, FEBC, FERI, GLYHGB, VD25 #### [address] [address] Medical Office Receptionist Assistant: Harpal Adair MD #### AGNES OLIVO, AZN #### [facility] [address] [place], [place] [id number] Medical Office Receptionist Assistant: Patricio Zuñiga MD #### MG ANGEL, CDP #### [facility] [address] [place] [address] Medical Office Receptionist Assistant: Hilton Armenta MD Iron Binding Cap.on 08-12-20 23 % Fe Saturation 16 % Low 20-55 [facility] Comment on above: Performed By: #### P THNCA, FEBC, FERI, GLYHGB, VD25 #### [address] [address] Medical Office Receptionist Assistant: Harpal Adair MD #### AGNES OLIVO, AZN #### [facility] [address] [place], [place] [id number] Medical Office Receptionist Assistant: Patricio Zuñiga MD #### MG ANGEL, CDP #### [facility] [address] [place] [address] Medical Office Receptionist Assistant: Hilton Armenta MD Iron [Mass/Vol] 57 ug/dL Normal 37-145 [facility] Comment on above: Performed By: #### P THNCA, FEBC, FERI, GLYHGB, VD25 #### [facility] [address] [place] [address] Medical Office Receptionist Assistant: Harpal Adair MD #### AGNES OLIVO, AZN #### [facility] [address] [place], [place] [id number] Medical Office Receptionist Assistant: Patricio Zuñiga MD #### CP, MG, CDP #### [facility] [address] [place] [address] [place] [address] Medical Office Receptionist Assistant: Hilton Armenta MD Total Fe Binding Cap 354 ug/dL Normal 250-450 [facility] Comment on above: Performed By: #### P THNCA, FEBC, FERI, GLYHGB, VD25 #### [address] [address] Medical Office Receptionist Assistant: Harpal Adair MD #### AGNES OLIVO, AZN #### [facility] [address] [place], [place] [id number] Medical Office Receptionist Assistant: Patricio Zuñiga MD #### ANGEL, MG, CDP #### [address] [place] [address] Medical Office Receptionist Assistant: Hilton Armenta MD Unbound Fe Bind Cap 297 ug/dL Normal 112-347 [facility] Comment on above: Performed By: #### P THNCA, FEBC, FERI, GLYHGB, VD25 #### [address] [address] Medical Office Receptionist Assistant: Harpal Adair MD #### AGNES OLIVO, AZN #### [facility] [address] [place], [place] [id number] Medical Office Receptionist Assistant: Patricio Zuñiga MD #### CP, MG, CDP #### [facility] [address] [place] [address] [place] [address] Medical Office Receptionist Assistant: Hilton Armenta MD Lipid Profileon 08-12-2023 Cholesterol [Mass/Vol] 153 mg/dL Normal <200 [facility] Comment on above: Result Comment: Cholesterol Guidelines: <200 Desirable 200-240 Borderline >240 Undesirable Performed By: #### L IPR #### [address] [address] Medical Office Receptionist Assistant: Harpal Adair MD Cholesterol in HDL [Mass/Vol] 68 mg/dL Normal >40 [facility] Comment on above: Result Comment: HDL Guidelines: <40 Undesirable 40-59 Borderline >59 Desirable Performed By: #### L IPR #### [facility] [place] [address] Medical Office Receptionist Assistant: Harpal Adair MD Cholesterol in LDL [Mass/Vol] 77 mg/dL Normal 0-130 [facility] Comment on above: Result Comment: LDL Guidelines: <100 Desirable 100-129 Near to/above Desirable 130-159 Borderline >159 Undesirable Direct (measured) LDL and calculated LDL are not interchangeable tests. Performed By: #### L IPR #### [facility] [address] [place] [address] Medical Office Receptionist Assistant: Harpal Adair MD Cholesterol.total/Chol esterol in HDL [Mass ratio] 2.3 {ratio} Normal <5 [facility] Comment on above: Performed By: #### L IPR #### [facility] [address] [place] [address] Medical Office Receptionist Assistant: Harpal Adair MD Triglyceride [Mass/Vol] 39 mg/dL Normal <150 [facility] Comment on above: Result Comment: Triglyceride Guidelines: <150 Desirable 150-199 Borderline 200-499 High >499 Very high Based on AHA Guidelines for fasting triglyceride, June 2012. Performed By: #### L IPR #### [facility] [address] [place] [address] Medical Office Receptionist Assistant: Harpal Adair MD Magnesiumon 08-12-2023 Magnesium [Mass/Vol] 2.1 mg/dL Normal 1.6-2.6 [facility] Comment on above: Performed By: #### P BAILEY, ALFONSO, FERI, GLYHGB, VD25 #### [facility] [address] [place] [address] Medical Office Receptionist Assistant: Harpal Adair MD #### AGNES OLIVO, AZN #### [facility] [address] [place] [address] Medical Office Receptionist Assistant: Patricio Zuñiga MD #### ANGEL MG, CDP #### [facility] [address] [place] [address] [place] [address] Medical Office Receptionist Assistant: Hilton Armenta MD PTH, Intacton 08-12-2023 PTH, Intact 17.1 pg/mL Normal 14.0-72.0 [facility] Comment on above: Result Comment: SAMP LES FROM PATIENTS ROUTINELY RECEIVING HIGH DOSE BIOTIN THERAPY MAY SHOW FALSELY DEPRESSED RESULTS. ADDITIONAL INFORMATION MAY BE REQUIRED FOR DIAGNOSIS. Performed By: #### P ALFONSO AVALOS FERI, GLYHGB, VD25 #### [address] [id number] Medical Office Receptionist Assistant: Harpal Adair MD #### AGNES OLIVO, AZN #### [facility] [address] [place], [place] [id number] Medical Office Receptionist Assistant: Patricio Zuñiga MD #### MG ANGEL, CDP #### [address] [place] [address] Medical Office Receptionist Assistant: Hilton Armenta MD Thyroid Stim. Horm.on 2022 Thyroid Stim. Horm. 1.50 uIU/mL Normal 0.30-5.00 [facility] Comment on above: Performed By: #### ALFONOS COSTA FERI, DONAVANB, VD25 #### [address] [id number] Medical Office Receptionist Assistant: Harpal Adair MD #### AGNES OLIVO, AZN #### [facility] [address] [place] [address] Medical Office Receptionist Assistant: Patricio Zuñiga MD #### ANGEL MG, CDP #### [facility] [address] [place] [address] Medical Office Receptionist Assistant: Hilton Armenta MD Thyroxine, Freeon 08-12-2023 Thyroxine, Free 1.2 ng/dL Normal 0.9-1.7 [facility] Comment on above: Performed By: #### P THHAYDEEA, FEBC, FERI, GLYHGB, VD25 #### [facility] [address] [place] [address] Medical Office Receptionist Assistant: Harpal Adair MD #### TYREE OLIVO1, AZN #### [facility] [address] [place] [address] Medical Office Receptionist Assistant: Patricio Zuñiga MD #### CP, MG, CDP #### [facility] [address] [place] [address] Medical Office Receptionist Assistant: Hilton Armenta MD US GALLBLADDER RUQon 023 US GALLBLADDER RUQ EXAMINATION: RIGHT UPPER QUADRANT ULTRASOUND 08/12/2023 7:25 am COMPARISON: None. HISTORY: ORDERING SYSTEM PROVIDED HISTORY: LUQ pain TECHNOLOGIST PROVIDED HISTORY: This procedure can be scheduled via DocASAP. Access your [employer] account by visiting [employer]. FINDINGS: LIVER: The liver demonstrates normal echogenicity [...] MRI pancreatic mass protocol. Interpreted by: Bret Mosnon DO Signed by: Bret Monson DO 08/12/23 Final result Normal [facility] Vitamin D 25 OHon 08-12-2023 Vitamin D 25 [place] 45.1 ng/mL Normal >29.9 [facility] Comment on above: Result Comment: Reference Range: Vitamin D status Range Deficiency <20 ng/mL Mild Deficiency 20-30 ng/mL Sufficiency 30-100 ng/mL Toxicity >100 ng/mL Performed By: #### P THHAKEEM, FEBC, FERI, GLYHGB, VD25 #### [facility] [address] [place] [address] Medical Office Receptionist Assistant: Harpal Adair MD #### TYREE OLIVO1, SENAN #### [facility] [address] [place] [address] Medical Office Receptionist Assistant: Patricio Zuñiga MD #### CP, MG, CDP #### [facility] [address] [place], [place] [address] Medical Office Receptionist Assistant: Hilton Armenta MD Patient Correspondenceon Patient Correspondence [id number]#1.00T IFF Normal [facility] ED Note-Physicianon 07-14-20 ED Note-Physician Basic Information Time Seen: Shama Macdonald PA-C 06/09/2023 15:45 Chief Complaint Pt presents to ED with complaints of KAUR onset today. History of Present Illness This patient presents to the emergency department chief complaint of maryam. She states that she has spent $10,000 in the last 2 weeks. She did see her psychiatrist at [facility] today and they are starting her [...] of care. (more content not included)... Normal [facility] Comment on above: Result Comment: Elec tronically Signed By: Shama Macdonald PA-C\.br\Date and Time Signed: 07/14/23 19:57 EDT\.br\Electronically Co-Signed By: Alexis Shukla DO\.br\Date and Time Co-Signed: 07/20/23 07:11 EST COVID Quick Testingon 2022 Result Negative textPlus Other Consultation Noteon 07-08-20 Consultation Note [id number]#1.00T IFF Normal [facility] Consent for Treatmenton 06-14 Consent for Treatment [id number]#1.00T IFF Normal [facility] ED Clinical Summaryon 2022 ED Clinical Summary (Inserted Image. Jordana ble to display) [place] [id number] ED Clinical Summary Person Information Name: SHAZIA CHOU [place] Age: 32 Years : 1990 Sex: Female Language: Sudanese PCP: Jennie Durand DO Marital Status: Phone: [phone] MRN: Visit Id: Visit Reason: Headache; Neck [...] 07/02/2023 15:29:14 07/02/2023 15:29:14 07/02/2023 15:29:14 ADDRESS: [address] [place] [id number] PHYS DOC NOTES: MEDICAL INFORMATION: Prescriptions Given: [...] EDUCATION INFORMATION: Instructions: Follow up: DIAGNOSIS: Normal [facility] ED Patient Education Noteon 07-02-2023 ED Patient Education Note Normal [facility] ED Patient Summaryon 023 ED Patient Summary (Inserted Image. Jordana ble to display) [address] [address] Patient Discharge Instructions Person Information Name: SHAZIA CHOU Age: 32 Years Arrival Date: 07/02/2023 14:03:05 Discharge Diagnosis: Primary Care Physician: Jennie Durand DO Provider Information Primary Provider: Bakari Chester DO [employer] Manager:Merari Polanco PA-C The exam and treatment you received in the Emergency Department were for an urgent problem and are not intended as complete care. It is important that you follow up with a doctor, nurse practitioner, or physician?s senior executive assistant for ongoing care. If your symptoms [...] opioids can be used to help relieve yisvgrii-lj-jnpbxy pain and are often prescribed following a [...] manager and ask for guidance or call SAMHSA?S National Helpline at 3-127-470-JGGW. v Source: [place] Department of Health and Human Services/Center for Disease Control & Prevention [facility] Medications Given: Medication Dose Route No medication (more content not included)... Normal [facility] Consultation Noteon 06-22-20 Consultation Note [id number]#1.00TI FF [facility] Consultation Noteon 06-19-20 Consultation Note [id number]#1.00T IFF [facility] CNPNon 06-15-2023 CNPN Telephone (NEADFV) SHAZIA CHOU ([id number]) 1990 F Date Time Provider Department 06/15/23 EILEEN ALVAREZ During your visit today, we recorded the following information about you: Clara Durbin RN 06/15/2023 4:57 PM Signed Received clinical notes and test results from [facility] ED visit from 06/10/23. 13 pages. Scanned to chart via [employer]. Routed to provider for review Glen Singh [...] is not alleviating the problem. Patient # [id number] Gorge Betancur 07/03/2023 12:15 PM Signed Per instructions from Dr. Alvarez. for patient, also sent message via [employer]. She needs to be back on diamox [...] 40 mg by mouth once daily. - ggvcjrkipwzd-evu-sszu-F A-vit K (BARIATRIC MULTIVITAMINS) 45 mg iron- [...] Status:Closed by GORGE BETANCUR on 07/03/23 Normal [facility] Discharge Instructionson Discharge Instructions [id number]#1.00 CD:127 Normal [facility] Acetamnphn Lvlon 06-09-2023 Acetaminophen [Mass/Vol] ug/mL Low 15-30 [facility] Comment on above: Performed By: #### 2 863069, 6512831, 5264406, 3151437, 7629738, 72571809 ####[facility] [address] [place] [address] Auto Diffon 06-09-2023 Basophils/100 WBC (Bld) 0.6 % Normal 0.0-2.0 [facility] Comment on above: Order Comment: Order Added by Discern Expert. Performed By: #### 2 388452, 4938476, 0194266, 0721206, 8435854, 99073544 ####[address] [address] Basophils/Leukocytes Auto (Bld) [Pure # fraction] 0.0 E9/L Normal 0.0-0.2 [facility] Comment on above: Order Comment: Order Added by Discern Expert. Performed By: #### 2 300162, 2351303, 2107270, 4526619, 6143877, 84976132 ####[address] [address] Eosinophils/100 WBC (Bld) 1.9 % Normal 0.0-8.0 [facility] Comment on above: Order Comment: Order Added by Discern Expert. Performed By: #### 2 107406, 3151099, 4417878, 3917597, 6807547, 44098640 ####[address] [address] Eosinophils/Leukocytes Auto (Bld) [Pure # fraction] 0.2 E9/L Normal 0.0-0.5 [facility] Comment on above: Order Comment: Order Added by Discern Expert. Performed By: #### 2 706380, 7932001, 7912007, 5345218, 9141261, 02567636 ####[address] [address] Lymphocytes/100 WBC (Bld) 23.4 % Normal 14.0-50.0 [facility] Comment on above: Order Comment: Order Added by Discern Expert. Performed By: #### 2 693950, 5185972, 4548698, 3148065, 9502380, 34471676 ####[address] [address] Lymphocytes/Leukocytes Auto (Bld) [Pure # fraction] 2.0 E9/L Normal 1.0-4.0 [facility] Comment on above: Order Comment: Order Added by Discern Expert. Performed By: #### 2 778422, 1157503, 7459308, 6474230, 0524287, 12548844 ####[address] [address] Monocytes/100 WBC (Bld) 6.9 % Normal 4.0-14.0 [facility] Comment on above: Order Comment: Order Added by Discern Expert. Performed By: #### 2 387985, 0050021, 5533440, 4559840, 1783296, 82079644 ####[place] [address] [place] [address] Monocytes/Leukocytes Auto (Bld) [Pure # fraction] 0.6 E9/L Normal 0.2-1.0 [facility] Comment on above: Order Comment: Order Added by Discern Expert. Performed By: #### 2 713676, 7697575, 7772336, 8186680, 6744200, 08006934 ####[address] [address] Neutrophils/100 WBC (Bld) 67.2 % Normal 36.0-75.0 [facility] Comment on above: Order Comment: Order Added by Discern Expert. Performed By: #### 2 847983, 4094496, 9222646, 6118684, 1011942, 40561750 ####[place] [address] [place] [address] Neutrophils/Leukocytes Auto (Bld) [Pure # fraction] 5.6 E9/L Normal 2.0-7.5 [facility] Comment on above: Order Comment: Order Added by Discern Expert. Performed By: #### 2 411599, 2014009, 3403994, 3052486, 7773138, 96443509 ####[facility] [address] [place] [address] CBC w/ Auto Diffon 3 Erythrocyte distribution width (RBC) [Ratio] 18.2 % High 10.9-14.2 [facility] Comment on above: Performed By: #### 2 861718, 3174263, 6170776, 6831240, 6829577, 49080030 ####[place] [address] [place] [address] Hematocrit (Bld) [Volume fraction] 34.3 % Normal 34.0-46.0 [facility] Comment on above: Performed By: #### 2 107827, 5786606, 0227807, 2845584, 8114406, 00151765 ####[place] [address] [place] [address] Hemoglobin (Bld) [Mass/Vol] 11.5 g/dL Low 12.0-16.0 [facility] Comment on above: Performed By: #### 2 413577, 3328440, 9896397, 6876322, 6076202, 48139319 ####[address] [address] MCH (RBC) [Entitic mass] 30.6 pg Normal 27.0-34.0 [facility] Comment on above: Performed By: #### 2 520304, 1729632, 5432726, 4036541, 3166993, 03065296 ####[address] [address] MCHC (RBC) [Mass/Vol] 33.6 g/dL Normal 31.4-36.0 [facility] Comment on above: Performed By: #### 2 355076, 3316980, 0052038, 1173480, 0380892, 59711514 ####[address] [address] MCV (RBC) [Entitic vol] 91.0 fL Normal 80.0-100.0 [facility] Comment on above: Performed By: #### 2 747180, 5481800, 7470986, 7372607, 3506126, 04521519 ####[address] [address] Platelet mean volume (Bld) [Entitic vol] 9.8 fL Normal 6.4-10.8 [facility] Comment on above: Performed By: #### 2 990327, 1673274, 9109106, 6150721, 7520782, 57008385 ####[address] [place] [address] Platelets (Bld) [#/Vol] 283.0 E9/L Normal 150.0-500.0 [facility] Comment on above: Performed By: #### 2 916602, 9851031, 4346241, 3234524, 7425341, 51750982 ####[address] [address] RBC (Bld) [#/Vol] 3.8 E12/L Low 4.3-5.9 [facility] Comment on above: Performed By: #### 2 708134, 1690303, 5307737, 2386572, 4904681, 11383114 ####[address] [address] WBC corrected for nucl RBC Auto (Bld) [#/Vol] 8.4 E9/L Normal 4.0-11.0 [facility] Comment on above: Performed By: #### 2 965218, 3482709, 2917361, 0584961, 3115828, 61255074 ####[place] [address] [place] [address] CMPon 06-09-2023 Albumin [Mass/Vol] 4.1 g/dL Normal 3.3-5.0 [facility] Comment on above: Performed By: #### 2 665422, 0949453, 9396529, 5577053, 4321645, 06945261 ####[place] [address] [place] [address] Albumin/Globulin (S) [Mass conc ratio] 1.3 Normal 1.1-2.2 [facility] Comment on above: Performed By: #### 2 589505, 4018489, 3452567, 1178439, 1984754, 87045154 ####[place] [address] [place] [address] ALP [Catalytic activity/Vol] 58 Int._Unit/L Normal 21-98 [facility] Comment on above: Performed By: #### 2 384105, 4812484, 4776647, 2237587, 2830118, 10123045 ####[facility] [address] [place] [address] ALT No additional P-5'-P [Catalytic activity/Vol] 18 Int._Unit/L Normal 6-46 [facility] Comment on above: Performed By: #### 2 834078, 6613226, 8614192, 8057780, 6227229, 73485333 ####[facility] [address] [place] [address] AST [Catalytic activity/Vol] 20 Int._Unit/L Normal 5-43 [facility] Comment on above: Performed By: #### 2 104721, 2725590, 7947286, 0071542, 3237989, 20626365 ####[facility] [address] [place] [address] Bilirubin [Mass/Vol] 0.1 mg/dL Normal 0.0-1.1 [facility] Comment on above: Performed By: #### 2 331952, 0297179, 5788711, 7416018, 8929106, 14592463 ####[facility] [address] [place] [address] Creatinine [Mass/Vol] 0.6 mg/dL Normal 0.5-1.3 [facility] Comment on above: Performed By: #### 2 327170, 3753575, 0809652, 2619028, 4736246, 31142067 ####[facility] [address] [place] [address] Globulin (S) [Mass/Vol] 3.2 g/dL Normal 1.4-4.0 [facility] Comment on above: Performed By: #### 2 655005, 2577332, 5613129, 9601574, 7856551, 76095061 ####[facility] [address] [place] [address] Protein [Mass/Vol] 7.3 g/dL Normal 6.0-7.8 [facility] Comment on above: Performed By: #### 2 195682, 7963269, 3644139, 4997549, 8840484, 30455542 ####[facility] [address] [place] [address] Urea nitrogen [Mass/Vol] 15 mg/dL Normal 5-21 [facility] Comment on above: Performed By: #### 2 296249, 8527424, 2233851, 9178537, 2098922, 60403907 ####[facility] [address] [place] [address] Urea nitrogen/Creatinine [Mass ratio] 25 No Units High 10-20 [facility] Comment on above: Performed By: #### 2 324200, 9514526, 4292449, 7810672, 8509074, 22589678 ####[facility] [address] [place] [address] Anion gap [Moles/Vol] 13 mmol/L Normal 6-16 [facility] Comment on above: Performed By: #### 2 877872, 9938498, 0255879, 7238051, 4290302, 26169658 ####[facility] [address] [place] [address] Calcium [Mass/Vol] 9.3 mg/dL Normal 8.9-11.1 [facility] Comment on above: Performed By: #### 2 234428, 4929209, 4856591, 2195151, 5528895, 76167999 ####[facility] [address] [place] [address] Chloride [Moles/Vol] 107 mmol/L Normal 101-111 [facility] Comment on above: Performed By: #### 2 735430, 2095498, 3487049, 6500093, 3165847, 76687157 ####[facility] [address] [place] [address] CO2 [Moles/Vol] 23 mmol/L Normal 21-31 [facility] Comment on above: Performed By: #### 2 756326, 7429665, 9944891, 5196888, 2980357, 99747904 ####[facility] [address] [place] [address] Glucose [Mass/Vol] 91 mg/dL Normal 55-199 [facility] Comment on above: Result Comment: If t his glucose result represents a fasting glucose, interpretation should refer to the following reference range: 55-99 mg/dL Performed By: #### 2 707861, 3392585, 9662156, 9443434, 9448774, 38276222 ####[facility] [address] [place] [address] Potassium [Moles/Vol] 3.6 mmol/L Normal 3.5-5.3 [facility] Comment on above: Performed By: #### 2 460272, 0823742, 3381053, 5655085, 2403658, 89433451 ####[facility] [address] [place] [address] Sodium [Moles/Vol] 139 mmol/L Normal 135-145 [facility] Comment on above: Performed By: #### 2 388225, 6021971, 1566476, 2359105, 5718302, 51203209 ####[facility] [address] [place] [address] Consent for Treatmenton 05-16 Consent for Treatment [id number]#1.00C D:127 Normal [facility] ED Clinical Summaryon 2022 ED Clinical Summary (Inserted Image. Jordana ble to display) [address] [address] ED Clinical Summary Person Information Name: SHAZIA CHOU [place] Age: 32 Years : 1990 Sex: Female Language: Sudanese PCP: Jennie Durand DO Marital Status: Phone: [phone] MRN: Visit Id: Visit Reason: Headache; HEADACHE [...] 06/09/2023 18:42:22 06/09/2023 18:42:22 06/09/2023 18:42:22 ADDRESS: [address] [place] [phone] PHYS DOC NOTES: MEDICAL INFORMATION: Prescriptions Given: [...] (at bedtime). PATIENT EDUCATION INFORMATION: Instructions: Paresthesia, Gydu-dv-Yqwk; Migraine Headache, Rjha-me-Heuz Follow up: With: Address: When: [facility] In 3 days 06/12/2023 With: Address: When: Jennie Durand [address], [facility] C, [facility] [address] [place] [id number] [employer] (1) In 3 days 06/12/2023 DIAGNOSIS: 1:Headache; 2:Paresthesia of arm Normal [facility] ED Patient Education Noteon 06-09-2023 ED [...] liquor (44 mL). General instructions ? Take njyz-dve-fgujmoa and prescription medicines only as told by [...] provider. Document Revised: 05/12/2022 Document Reviewed: 05/12/2022 [employer] Patient Education ? 2022 [employer] Migraine Headache A migraine headache is [...] ? Tiredness. (more content not included)... Normal [facility] ED Patient Summaryon 023 ED Patient Summary (Inserted Image. Jordana ble to display) [place] [id number] Patient Discharge Instructions Person Information Name: SHAZIA CHOU Age: 32 Years Arrival Date: 06/09/2023 15:33:36 Discharge Diagnosis: 1:Headache; 2:Paresthesia of arm Primary Care Physician: Jennie Durand DO Provider Information Primary Provider: Alexis Shukla DO [employer] Pharm[employer] Manager:None The exam and treatment you received in the Emergency Department were for an urgent problem and are not intended as complete care. It is important that you follow up with a doctor, nurse practitioner, or physician?s senior executive assistant for ongoing care. If your symptoms become worse or you do not improve as expected and you are unable to reach your usual health care provider, you should return to the Emergency Department. We are available 24 hours a day. SHAZIA CHOU has been given the following list of patient education materials, prescriptions and follow-up instructions: Follow-up Instructions: With: Address: When: [facility] In 3 days 06/12/2023 With: Address: When: Jennie Durand [address], [facility] C, [facility] [address] [place] [phone] [facility] (7) In 3 days 06/12/2023 In the event that this physician does not participate in your insurance network, please consult with your insurance company to find a nearby participating provider. Patient Education Materials: Paresthesia, Yrpq-tc-Hgxu; Migraine Headache, Btyv-ns-Ravu A MESSAGE TO ALL PATIENTS REGARDING OPIOIDS PRESCRIPTION OPIOIDS: WHAT YOU NEED TO KNOW Prescription opioids can be used to help relieve ktdqbsnm-qr-yzhetl pain and are often prescribed following a [...] addiction, tell (more content not included)... Normal [facility] Ethanolon 06-09-2023 Ethanol [Mass/Vol] mg/dL Normal <=7 [facility] Comment on above: Performed By: #### 2 229669 ####[facility] [address] [place] [address] Salicylateon 06-09-2023 Salicylates [Mass/Vol] mg/dL Low 6-29 [facility] Comment on above: Performed By: #### 2 167528, 8497200, 4246104, 6683417, 1021644, 30584139 ####[facility] [address] [place] [address] U Drug Screenon 06-09-2023 Amphetamines Screen method >1000 ng/mL Ql (U) Negative Normal Negative [facility] Comment on above: Result Comment: Nega tive Cutoff: <1000 ng/mL Performed By: #### 2 542399 ####[facility] [address] [place] [address] Barbiturates Screen Ql (U) Negative Normal Negative [facility] Comment on above: Result Comment: Nega tive Cutoff: <200 ng/mL Performed By: #### 2 [id number] ####[facility] [address] [place] [address] Benzodiazepines Ql (U) Negative Normal Negative [facility] Comment on above: Result Comment: Nega tive Cutoff: <200 ng/mL Performed By: #### 2 093970 ####[facility] [address] [place] [address] Cocaine Ql (U) Negative Normal Negative [facility] Comment on above: Result Comment: Nega tive Cutoff: <300 ng/mL Performed By: #### 2 296957 ####[facility] [address] [place] [address] Opiates Screen Ql (U) Negative Normal Negative Fis [facility] Comment on above: Result Comment: Nega tive Cutoff: <300 ng/mL Performed By: #### 2 227863 ####[facility] [address] [place] [address] Phencyclidine Screen method >25 ng/mL Ql (U) Negative Normal Negative [facility] Comment on above: Result Comment: Nega tive Cutoff: <25 ng/mL These drug screen results are to be used for medical (i.e., treatment) purposes only. Unconfirmed drug screening results must not be used for non-medical purposes (e.g., employment testing, legal testing). Performed By: #### 2 418612 ####[facility] [address] [place] [address] Tetrahydrocannabinol Screen method >50 ng/mL Ql (U) Negative Normal Negative [facility] Comment on above: Result Comment: Nega tive Cutoff: <50 ng/mL Performed By: #### 2 006831 ####[facility] [address] [place] [address] UA With Cult Reflexon 2022 Bilirubin Ql (U) Negative Normal Negative [facility] Comment on above: Performed By: #### 1 2667730 #### [facility] [address] [place] [address] Clarity (U) CLEAR Normal Clear [facility] Comment on above: Performed By: #### 1 0605285 #### [facility] [address] [place] [address] Color (U) YELLOW Normal Yellow [facility] Comment on above: Performed By: #### 1 2780529 #### [facility] [address] [place] [address] Crystals LM Ql (Urine sed) Present Normal [facility] Comment on above: Performed By: #### 1 1394810 #### [facility] [address] [place] [address] Epithelial cells.squamous LM.HPF (Urine sed) [#/Area] 0-2 Normal 0-2 [facility] Comment on above: Performed By: #### 1 3352673 #### [facility] [address] [place] [address] Glucose Test strip (U) [Mass/Vol] Negative Normal Negative [facility] Comment on above: Performed By: #### 1 0240477 #### [facility] [address] [place] [address] Hemoglobin Ql (U) Negative Normal Negative [facility] Comment on above: Performed By: #### 1 [id number] #### [facility] [address] [place] [address] Ketones (U) [Mass/Vol] Negative Normal Negative [facility] Comment on above: Performed By: #### 1 8160186 #### [facility] [address] [place] [address] [place].plasma/[place] .RBC (Bld) [Mass ratio] 0-3 Normal 0-3 [facility] Comment on above: Performed By: #### 1 8386030 #### [facility] [address] [place] [address] Nitrite Ql (U) Negative Normal Negative [facility] Comment on above: Performed By: #### 1 2038529 #### [facility] [address] [place] [address] pH (U) 6.0 [pH] Invalid Interpretation Code 5.0-9.0 [facility] Comment on above: Performed By: #### 1 8408255 #### [facility] [address] [place] [address] Protein (U) [Mass/Vol] Negative Normal Negative [facility] Comment on above: Performed By: #### 1 8449307 #### [facility] [address] [place] [address] Specific gravity (U) [Rel density] 1.010 Invalid Interpretation Code 1.005-1.030 [facility] Comment on above: Performed By: #### 1 3435390 #### [facility] [address] [place] [address] Type of Urine collection method Clean Catch Normal [facility] Comment on above: Performed By: #### 1 2100694 #### [facility] [address] [place] [address] Urobilinogen Qn (U) 0.2 {Lucila'U}/dL Normal 0.0-1.0 [facility] Comment on above: Performed By: #### 1 2829850 #### [facility] [address] [place] [address] WBC Auto Ql (U) Negative Normal Negative [facility] Comment on above: Performed By: #### 1 2567196 #### [facility] [address] [place] [address] WBC LM.HPF (Urine sed) [#/Area] 0-5 Normal 0-5 [facility] Comment on above: Performed By: #### 1 3426674 #### [facility] [address] [place] [address] eGFRon 06-09-2023 GFR/1.73 sq M.predicted among non-blacks MDRD (S/P/Bld) [Vol rate/Area] 121 mL/min/1.73 m2 Normal >=59 [facility] Comment on above: Order Comment: Order added by Discern Expert. Result Comment: Freelance Patternmaker gurpreet kidney disease could be indicated at eGFR's of less than 60 mL/min/1.73m2. Kidney failure is indicated at less than 15 mL/min/1.73m2. Performed By: #### 2 241856, 1335864, 3902789, 2171462, 4732316, 54746970 ####[facility] [address] [place] [address] Vit Aon 03-24-2023 Retinol [Mass/Vol] 42.9 microgram/dL Invalid Interpretation Code 18.9-57.3 [facility] Comment on above: Result Comment: Refe rence intervals for vitamin A determined from [facility] internal studies. Individuals with vitamin A less than 20 ug/dL are considered vitamin A deficient and those with serum concentrations less than 10 ug/dL are considered severely deficient. This test was developed and its performance characteristics determined by [facility]. It has not been cleared or approved by the Food and Drug Administration. Performed at: [facility] [address] [place], [place] [id number] MD Shorty Rodríguez Performed By: #### 2 649336, 17633571, 6166756, 1492665, 88466439, 27748933, 158182614, 3769986, 3162389, 14713787, 7065804, 5507248, 742685093, 06463436, 7573167, 0136859, 4970718, 6795245 ####[facility] [address] [place] [address] Vit B1on 03-24-2023 Thiamine (Bld) [Moles/Vol] 171.7 nmol/L Invalid Interpretation Code 66.5-200.0 [facility] Comment on above: Result Comment: This test was developed and its performance characteristics determined by [facility]. It has not been cleared or approved by the Food and Drug Administration. Performed at: [address] [id number] MD Shorty Rodríguez Performed By: #### 2 608669, 44430601, 0444052, 1352979, 86516700, 09456199, 518268171, 0838409, 6396389, 55627536, 9374141, 7830269, 178518308, 55815918, 7982928, 1308820, 1089099, 1817732 ####[address] [place] [address] Zinc Lvlon 03-24-2023 Zinc [Mass/Vol] 85 microgram/dL Invalid Interpretation Code 44-115 [facility] Comment on above: Result Comment: This test was developed and its performance characteristics determined by [facility]. It has not been cleared or approved by the Food and Drug Administration. Detection Limit = 5 Performed at: [address] [id number] MD Shorty Rodríguez Performed By: #### 2 402983, 84343653, 4292394, 4943744, 32374235, 03416627, 232217378, 2581965, 0622473, 47507623, 3931029, 7088600, 041350685, 94631756, 7824059, 5544062, 0207995, 5394762 ####[address] [place] [address] PTH Intacton 03-20-2023 Parathyrin.intact [Mass/Vol] 17 pg/mL Invalid Interpretation Code 15-65 [facility] Comment on above: Result Comment: Perf ormed at: [address] [id number] PhD Cordelia Madera Performed By: #### 1 [id number] ####[facility] [address] [place] [address] Auto Diffon 03-19-2023 Basophils/100 WBC (Bld) 1.1 % Normal 0.0-2.0 [facility] Comment on above: Order Comment: Order Added by Discern Expert. Performed By: #### 2 980224, 00235704, 1437628, 7265157, 20537491, 17889944, 285718065, 2341186, 3184589, 61524267, 7962560, 5975482, 703754990, 38922286, 7752397, 6171527, 1933212, 5352095 ####[address] [place] [address] Basophils/Leukocytes Auto (Bld) [Pure # fraction] 0.1 E9/L Normal 0.0-0.2 [facility] Comment on above: Order Comment: Order Added by Discern Expert. Performed By: #### 2 236626, 99178289, 1771169, 7993168, 13491761, 97417076, 249341357, 8649344, 2190103, 63610926, 3379057, 7035725, 693459861, 79362356, 9526316, 0507481, 8090677, 8152241 ####[address] [place] [address] Eosinophils/100 WBC (Bld) 4.1 % Normal 0.0-8.0 [facility] Comment on above: Order Comment: Order Added by Discern Expert. Performed By: #### 2 288711, 81258056, 8992803, 9971958, 03726312, 60907076, 357200832, 1794936, 6593061, 31132798, 5021394, 2704949, 965472105, 64380394, 2294997, 2670359, 7453155, 8850771 ####[address] [place] [address] Eosinophils/Leukocytes Auto (Bld) [Pure # fraction] 0.4 E9/L Normal 0.0-0.5 [facility] Comment on above: Order Comment: Order Added by Discern Expert. Performed By: #### 2 846574, 58939337, 3614658, 5793203, 66784364, 12524123, 871845737, 4045953, 2526894, 89671489, 2286136, 3256038, 315324676, 62254717, 4637075, 3700129, 9076559, 8406245 ####[address] [address] Lymphocytes/100 WBC (Bld) 20.5 % Normal 14.0-50.0 [facility] Comment on above: Order Comment: Order Added by Ilana Expert. Performed By: #### 2 159995, 98602902, 8280489, 2320919, 85973891, 65026385, 539630209, 3976836, 1546253, 85193016, 7562469, 1279648, 766423482, 01268780, 2918375, 4892917, 6760340, 3361108 ####[address] [address] Lymphocytes/Leukocytes Auto (Bld) [Pure # fraction] 2.1 E9/L Normal 1.0-4.0 [facility] Comment on above: Order Comment: Order Added by Discern Expert. Performed By: #### 2 608847, 00396191, 0784507, 6832945, 30166631, 38516198, 430020294, 8800350, 8870466, 84085912, 2504248, 9548822, 708999704, 62008349, 8978963, 2497276, 0544302, 3091229 ####[address] [place] [address] Monocytes/100 WBC (Bld) 7.6 % Normal 4.0-14.0 [facility] Comment on above: Order Comment: Order Added by Discern Expert. Performed By: #### 2 980261, 35043328, 5587433, 6894196, 57727731, 29868421, 559816356, 2331532, 9157856, 69505422, 5237106, 4917916, 882871640, 12961009, 8371693, 5518111, 1850024, 3195915 ####[facility] [address] [place] [address] Monocytes/Leukocytes Auto (Bld) [Pure # fraction] 0.8 E9/L Normal 0.2-1.0 [facility] Comment on above: Order Comment: Order Added by Discern Expert. Performed By: #### 2 611147, 95386578, 9129824, 8716924, 88248254, 22980741, 505240494, 1045912, 2545295, 58278604, 1925668, 4598396, 040970150, 19858292, 6215719, 7764855, 9987579, 8921156 ####[address] [place] [address] Neutrophils/100 WBC (Bld) 66.7 % Normal 36.0-75.0 [facility] Comment on above: Order Comment: Order Added by Discern Expert. Performed By: #### 2 884849, 46587601, 2545281, 6626302, 51521156, 39196688, 075824411, 6037055, 3824460, 41499537, 0159880, 3866096, 492991784, 64745290, 7857387, 8979251, 7680006, 0407259 ####[address] [place] [address] Neutrophils/Leukocytes Auto (Bld) [Pure # fraction] 6.8 E9/L Normal 2.0-7.5 [facility] Comment on above: Order Comment: Order Added by Discern Expert. Performed By: #### 2 755162, 04377590, 2767764, 2203777, 05197525, 69548431, 836731541, 2285870, 6413101, 92071248, 9794290, 7611793, 551594992, 43473367, 6327378, 0447709, 1969371, 6932072 ####[address] [place] [address] CBC w/ Auto Diffon 3 Erythrocyte distribution width (RBC) [Ratio] 16.0 % High 10.9-14.2 [facility] Comment on above: Performed By: #### 2 050669, 56730412, 6121335, 6985968, 33124661, 73285164, 156192253, 6505034, 5156444, 34816502, 7909897, 6562415, 130431668, 85866988, 1456233, 1767873, 6687397, 0143660 ####[address] [place] [address] Hematocrit (Bld) [Volume fraction] 37.1 % Normal 34.0-46.0 [facility] Comment on above: Performed By: #### 2 818058, 90258667, 5800891, 9983919, 89344024, 90005165, 446932574, 0106497, 0410855, 89500742, 7971912, 0185484, 423052151, 06374549, 3275738, 0407122, 7126214, 6338171 ####[address] [place] [address] Hemoglobin (Bld) [Mass/Vol] 12.6 g/dL Normal 12.0-16.0 [facility] Comment on above: Performed By: #### 2 355728, 17043609, 5532512, 2213238, 57043541, 58901582, 685519629, 6057512, 1802091, 00466614, 4040978, 4995390, 187761826, 31199866, 5735892, 2476254, 2010261, 5552567 ####[address] [place] [address] MCH (RBC) [Entitic mass] 31.2 pg Normal 27.0-34.0 [facility] Comment on above: Performed By: #### 2 363522, 32042672, 1158730, 2832378, 78936070, 89294276, 540973442, 5672161, 2876773, 46340562, 0660325, 3940309, 385558124, 06635404, 5861671, 5778342, 5376654, 8414345 ####[facility] [address] [place] [address] MCHC (RBC) [Mass/Vol] 33.9 g/dL Normal 31.4-36.0 [facility] Comment on above: Performed By: #### 2 963980, 61011290, 2827433, 1015874, 31590743, 11429670, 108013536, 1403213, 2659543, 15881534, 8426369, 5600523, 942330141, 60086604, 4562495, 5516579, 1865675, 7153438 ####[address] [address] MCV (RBC) [Entitic vol] 92.0 fL Normal 80.0-100.0 [facility] Comment on above: Performed By: #### 2 948533, 23238977, 3043766, 4483409, 24951316, 36114916, 311360034, 2383385, 6664451, 63244755, 9950544, 1702643, 444884599, 27083239, 9103058, 8579324, 5535645, 5143278 ####[address] [address] Platelet mean volume (Bld) [Entitic vol] 9.8 fL Normal 6.4-10.8 [facility] Comment on above: Performed By: #### 2 215692, 17130000, 6217871, 8520412, 00539521, 29899657, 353802224, 3089281, 2238476, 89131154, 4198813, 8541337, 138563372, 05251307, 5508520, 6891070, 6682391, 8179809 ####[facility] [address] [place] [address] Platelets (Bld) [#/Vol] 369.0 E9/L Normal 150.0-500.0 [facility] Comment on above: Performed By: #### 2 499268, 84551970, 2118392, 6839207, 03432423, 43958084, 849848166, 8883512, 2997320, 98358915, 4756189, 3909950, 063728307, 96002730, 9842788, 0531063, 7403511, 5693612 ####[address] [place] [address] RBC (Bld) [#/Vol] 4.0 E12/L Low 4.3-5.9 [facility] Comment on above: Performed By: #### 2 083753, 61065492, 0970077, 5963808, 89759372, 29434077, 354400506, 8144629, 1346013, 83173918, 2244327, 4604074, 849878827, 69646843, 7350915, 4845760, 4007023, 4728127 ####[address] [place] [address] WBC corrected for nucl RBC Auto (Bld) [#/Vol] 10.1 E9/L Normal 4.0-11.0 [facility] Comment on above: Performed By: #### 2 918159, 04603639, 4777161, 7448420, 01606194, 26360595, 752146539, 7149545, 0138769, 12766386, 8317040, 6521243, 545963481, 58698267, 9487202, 2084356, 4482369, 3957602 ####[facility] [address] [place] [address] CHEMISTRYOrdered By: SYSTEM SYSTEM on 03-19-2023 25-hydroxyvitamin [...] (Bld) [Mass fraction] 5.8 % Normal <=5.9% FT ChemAutoSS CMPon 03-19-2023 Albumin [Mass/Vol] 4.0 g/dL Normal 3.3-5.0 [facility] Comment on above: Performed By: #### 2 245243, 22596737, 0944111, 3347504, 96720839, 38968131, 879830035, 4436019, 7109899, 45281431, 4094306, 8045200, 758851472, 52543081, 9873280, 0903463, 5346633, 2750117 ####[facility] [address] [place] [address] Albumin/Globulin (S) [Mass conc ratio] 1.2 Normal 1.1-2.2 [facility] Comment on above: Performed By: #### 2 469030, 85290958, 6386176, 2243360, 50691464, 36898982, 242669465, 1623306, 4215168, 18168448, 4964020, 9143688, 944803071, 19947790, 5801815, 6540139, 1671647, 6576951 ####[facility] [address] [place] [address] ALP [Catalytic activity/Vol] 61 Int._Unit/L Normal 21-98 [facility] Comment on above: Performed By: #### 2 111757, 11529057, 5586526, 6695535, 87251279, 40310803, 906854634, 2362894, 1555398, 69108169, 6629319, 1249023, 153947345, 82299738, 1207721, 1131599, 8524873, 4073229 ####[facility] [address] [place] [address] ALT No additional P-5'-P [Catalytic activity/Vol] 17 Int._Unit/L Normal 6-46 [facility] Comment on above: Performed By: #### 2 465882, 87260310, 0066442, 0883083, 32984235, 83548648, 952776995, 6114039, 3635427, 14838270, 1680856, 3940547, 581041077, 16815875, 8817109, 0025275, 8920642, 1267977 ####[facility] [address] [place] [address] Anion gap [Moles/Vol] 9 mmol/L Normal 6-16 [facility] Comment on above: Performed By: #### 2 464915, 73915114, 5339364, 5187718, 98589814, 20009852, 072636574, 2321799, 6486600, 41338317, 1776137, 1938039, 838236341, 38858435, 8067836, 1330452, 1172188, 7901997 ####[facility] [address] [place] [address] AST [Catalytic activity/Vol] 20 Int._Unit/L Normal 5-43 [facility] Comment on above: Performed By: #### 2 037835, 22970258, 4562911, 9399017, 98949397, 10551209, 409560347, 4407983, 2142331, 86661424, 6526946, 2568371, 810675373, 89120251, 1508489, 7336434, 3475843, 0970443 ####[facility] [address] [place] [address] Bilirubin [Mass/Vol] 0.4 mg/dL Normal 0.0-1.1 [facility] Comment on above: Performed By: #### 2 102450, 33627175, 6170951, 3496833, 59517307, 89314685, 986644170, 1153710, 7267487, 80929193, 6152857, 0831943, 621496052, 08304661, 5963813, 3898854, 6292060, 3787998 ####[facility] [address] [place] [address] Calcium [Mass/Vol] 9.2 mg/dL Normal 8.9-11.1 [facility] Comment on above: Performed By: #### 2 725500, 93561018, 1837966, 7141727, 97950740, 62411887, 209452468, 0857963, 4450813, 02521167, 8295867, 9229682, 879409755, 25916777, 9119590, 3757240, 5219078, 8378334 ####[facility] [address] [place] [address] Chloride [Moles/Vol] 113 mmol/L High 101-111 [facility] Comment on above: Performed By: #### 2 840857, 22081753, 3223368, 5383953, 53536808, 76890433, 979114826, 9971302, 2804575, 86706920, 0945688, 7969940, 221307524, 65630574, 4595261, 2908484, 5295945, 7204187 ####[facility] [address] [place] [address] CO2 [Moles/Vol] 22 mmol/L Normal 21-31 [facility] Comment on above: Performed By: #### 2 484765, 09490603, 0995411, 2627843, 31109183, 79633888, 418997317, 5548472, 3917861, 24164040, 5633019, 0052151, 518050439, 95373399, 8378025, 6004518, 2787490, 5043508 ####[facility] [address] [place] [address] Creatinine [Mass/Vol] 0.7 mg/dL Normal 0.5-1.3 [facility] Comment on above: Performed By: #### 2 997817, 79803967, 7368232, 1911651, 71661260, 21086042, 029007639, 8446464, 4162713, 44594591, 8111061, 2938441, 487291257, 36103449, 2451160, 3080087, 2797767, 9316518 ####[facility] [address] [place] [address] Globulin (S) [Mass/Vol] 3.2 g/dL Normal 1.4-4.0 [facility] Comment on above: Performed By: #### 2 013633, 29047337, 6905408, 9827315, 69151533, 04669046, 467028828, 0449877, 2173361, 00906095, 1298664, 0582980, 657016194, 24766516, 9915004, 4534318, 2947782, 2240273 ####[facility] [address] [place] [address] Glucose [Mass/Vol] 103 mg/dL Normal 55-199 [facility] Comment on above: Result Comment: If t his glucose result represents a fasting glucose, interpretation should refer to the following reference range: 55-99 mg/dL Performed By: #### 2 100758, 00683289, 9246376, 0454622, 71534830, 40284722, 580665160, 6923727, 4803291, 64216150, 2554415, 5907775, 514752562, 42996056, 0229344, 9422752, 6016730, 8160126 ####[facility] [address] [place] [address] Potassium [Moles/Vol] 3.8 mmol/L Normal 3.5-5.3 [facility] Comment on above: Performed By: #### 2 244265, 60013768, 3631733, 0131496, 29748604, 19229021, 400170069, 8473900, 7477430, 67299923, 1810915, 6429347, 944904653, 54690619, 6670229, 9917566, 5886898, 2036006 ####[facility] [address] [place] [address] Protein [Mass/Vol] 7.2 g/dL Normal 6.0-7.8 [facility] Comment on above: Performed By: #### 2 126062, 13855443, 2156562, 4944167, 73317930, 49051606, 303171860, 1359370, 4434724, 66275047, 9396835, 0607637, 639814429, 26651418, 3063600, 0490836, 0499978, 9323903 ####[facility] [address] [place] [address] Sodium [Moles/Vol] 140 mmol/L Normal 135-145 [facility] Comment on above: Performed By: #### 2 200265, 97716933, 0047456, 7922547, 53170840, 79240230, 534467559, 6636361, 3749134, 47404989, 8692711, 7437094, 269189947, 57192323, 2941039, 1501124, 8930099, 8731563 ####[address] [place] [address] Urea nitrogen [Mass/Vol] 12 mg/dL Normal 5-21 [facility] Comment on above: Performed By: #### 2 252857, 32515578, 6121161, 6507597, 67638817, 74572814, 359109727, 5829730, 5933834, 03280858, 9363614, 5642481, 858602755, 77216493, 0059938, 4254016, 1175021, 6416063 ####[address] [place] [address] Urea nitrogen/Creatinine [Mass ratio] 17 No Units Normal 10-20 [facility] Comment on above: Performed By: #### 2 892803, 24989130, 1922430, 4735233, 54366205, 16644724, 344090119, 1067972, 3307136, 85814114, 9169165, 7237703, 563146519, 08939654, 0575386, 2990886, 0458947, 6931406 ####[facility] [address] [place] [address] Consent for Treatmenton Consent for Treatment [id number] [id number]#1.00C D:127 Normal [facility] Ferritinon 03-19-2023 Ferritin [Mass/Vol] 6 ng/mL Low 11-307 [facility] Comment on above: Result Comment: NORM ALS MEN <30 YRS 16-132 ng/mL MEN >30 YRS 8-338 ng/mL WOMEN (PREMEN) 6-104 ng/mL WOMEN (POSTMEN) 12-210 ng/mL Performed By: #### 2 783876, 74996386, 1515909, 3791407, 13414335, 72919482, 802621134, 7099645, 7904336, 83759694, 0982836, 8099889, 296675315, 56760045, 2333190, 2389137, 0023539, 7597133 ####[facility] [address] [place] [address] Folateon 03-19-2023 Folate [Mass/Vol] 15.6 ng/mL Normal >=6.7 [facility] Comment on above: Performed By: #### 2 133957, 25845672, 5572781, 5974366, 72007950, 58499751, 620749113, 3514910, 2249350, 75919763, 7276752, 0211391, 146606227, 96792575, 7920733, 3354510, 0144475, 5956664 ####[facility] [address] [place] [address] Free T4on 03-19-2023 Free T4 [Mass/Vol] 0.88 ng/dL Normal 0.58-1.64 [facility] Comment on above: Performed By: #### 2 742908, 64156051, 1322578, 7739737, 93409080, 64505146, 994955680, 4137541, 9795554, 17752797, 8391662, 6931554, 661699617, 43590629, 7691823, 2749376, 7555396, 9077071 ####[facility] [address] [place] [address] HEMATOLOGYOrdered By: SYSTEM SYSTEM on 03-19-2023 Basophils/100 [...] Normal 4.0 - 11.0 E9/L [facility] HemeAutoSS ZuzQ5rur 03-19-2023 HbA1c (Bld) [Mass fraction] 5.8 % Normal <=5.9 [facility] Comment on above: Performed By: #### 2 952891, 20419761, 2669653, 8424980, 93702686, 84748487, 643215495, 1715627, 7674246, 40098764, 7521609, 1785324, [id number], 66495289, 9637838, 8753334, 5869667, 7919747 ####[facility] [address] [place] [address] Ironon 03-19-2023 Iron [Mass/Vol] 69 microgram/dL Normal 35-153 [facility] Comment on above: Performed By: #### 2 234876, 86424698, 2435940, 6657196, 01038989, 41474713, 322804158, 7394345, 9766368, 33323573, 8771144, 3196944, 528683113, 28221459, 9134997, 4438659, 2954163, 2212716 ####[facility] [address] [place] [address] Lipid Panelon 03-19-2023 Cholesterol [Mass/Vol] 167 mg/dL Normal 120-200 [facility] Comment on above: Performed By: #### 2 762873, 65916083, 6774337, 0103467, 48169230, 01217766, 929951180, 9285276, 9556657, 90736034, 0862152, 5696612, 540635339, 32797815, 6853493, 8673122, 1446937, 7525474 ####[facility] [address] [place] [address] Cholesterol in HDL [Mass/Vol] 72 mg/dL Invalid Interpretation Code [facility] Comment on above: Result Comment: HDL > or equal to 60 mg/dL: Low cardiovascular risk HDL < 40 mg/dL : High cardiovascular risk Performed By: #### 2 854060, 78839957, 4991377, 3129916, 26920962, 52262402, 270819560, 2566309, 6723316, 66006716, 5156316, 0791450, 239924743, 95116364, 0614723, 3603891, 9891209, 2707597 ####[facility] [address] [place] [address] Cholesterol in LDL [Mass/Vol] 72 mg/dL Normal <=129 [facility] Comment on above: Performed By: #### 2 100806, 62523839, 6944455, 4825576, 50922766, 21493462, 250756548, 1283868, 5953095, 48679726, 9928518, 3854360, 642459624, 32053730, 9362110, 6005300, 1069306, 1112633 ####[facility] [address] [place] [address] Cholesterol in VLDL [Mass/Vol] 14 mg/dL Normal 7-40 [facility] Comment on above: Performed By: #### 2 278508, 21827861, 3519783, 9515018, 58136358, 43354114, 323851739, 9443861, 7075200, 08113055, 8900645, 5051007, 150829123, 05004865, 1620681, 2862658, 7257947, 0550981 ####[facility] [address] [place] [address] Triglyceride [Mass/Vol] 69 mg/dL Normal <=149 [facility] Comment on above: Performed By: #### 2 676477, 65027077, 5009839, 8392223, 74209557, 98139753, 013041032, 3680418, 6846556, 87714690, 5476787, 7944319, 640746939, 19628330, 3263495, 3426103, 6489491, 0075866 ####[facility] [address] [place] [address] Magnesiumon 03-19-2023 Magnesium [Mass/Vol] 2.0 mg/dL Normal 1.3-2.4 [facility] Comment on above: Performed By: #### 2 733678, 14274666, 9196406, 6408181, 84852202, 64921294, 443824177, 4443804, 9544702, 78858856, 0756003, 9856183, 696134220, 87259632, 4299132, 3723377, 0244810, 4178796 ####[address] [place] [address] Physician Orderon 03-19-2023 Physician Order [id number]#[id number] CD:127 Normal [facility] TIBC Calculatedon 03-19-2023 Iron binding capacity [Mass/Vol] 423 microgram/dL High 250-400 [facility] Comment on above: Performed By: #### 2 087369, 37294751, 9689567, 1571217, 01622188, 50845410, 023448071, 0613557, 6124799, 52488728, 2815235, 0136368, 367576924, 35748296, 2701432, 7376444, 2037719, 6623824 ####[facility] [address] [place] [address] Transferrin [Mass/Vol] 302 mg/dL Normal 200-370 [facility] Comment on above: Performed By: #### 2 501667, 69811357, 1663158, 6109129, 08437814, 55928467, 731727946, 8746719, 3483310, 58444028, 1789974, 5916199, 512104481, 34097320, 8350445, 2025087, 6708530, 8105282 ####[facility] [address] [place] [address] TSHon 03-19-2023 TSH Qn 0.61 m[IU]/L Normal 0.34-5.60 [facility] Comment on above: Performed By: #### 2 672464, 27212320, 8458957, 9814966, 35714439, 50158225, 230414776, 6619879, 4257004, 88498477, 2878166, 5345688, 847553151, 96107422, 2465785, 8901849, 4569188, 5196765 ####[facility] [address] [place] [address] Vit B12on 03-19-2023 Cobalamin (Vitamin B12) [Mass/Vol] 357 pg/mL Normal 50-1500 [facility] Comment on above: Performed By: #### 2 387343, 98090225, 4620129, 2049594, 35501093, 18663798, 285595853, 5441522, 4147701, 77390588, 1033455, 1255299, 571376740, 34446305, 7159152, 9659745, 8997657, 2784067 ####[facility] [address] [place] [address] Vitamin D 25 Hydroxyon 03-19 25-hydroxyvitamin D3 [Mass/Vol] 43.1 ng/mL Normal 30.0-100.0 [facility] Comment on above: Result Comment: Vit alberto D deficiency has been defined as a level of serum 25-OH vitamin D less than 20 ng/mL (1,2) by the [place] [employer] and an Endocrine Society practice guideline. The Endocrine Society further defined vitamin D insufficiency as a level between 21 and 29 ng/mL (2). 1. IOM ([place] [employer]). 2010. Dietary reference intakes for calcium and D. [place]: The National Academies Press. 2. Willard MF, Luisa HUBBARD, Nestor KAUR, et al. Evaluation, treatment, and prevention of vitamin D deficiency: an Endocrine Society clinical practice guideline. JCEM. 2010; 96 (7):1911-30. Performed By: #### 2 732853, 32994304, 4761905, 5762929, 53136491, 05419997, 502685713, 6081301, 8805663, 53559838, 9626889, 1758076, 114634241, 82122151, 6325969, 7867885, 7603945, 1610108 ####[facility] [address] [place] [address] eGFRon 03-19-2023 GFR/1.73 sq M.predicted among non-blacks MDRD (S/P/Bld) [Vol rate/Area] 116 mL/min/1.73 m2 Normal >=59 [facility] Comment on above: Order Comment: Order added by Discern Expert. Result Comment: Freelance Patternmaker gurpreet kidney disease could be indicated at eGFR's of less than 60 mL/min/1.73m2. Kidney failure is indicated at less than 15 mL/min/1.73m2. Performed By: #### 2 082287, 85313660, 6925431, 5430164, 34600262, 49924848, 260757663, 2274119, 9903746, 53800966, 1070683, 9847831, 597219005, 21803373, 6145662, 7962348, 4545960, 0858934 ####[facility] [address] [place] [address] MRA Head veins WO and W cont rast Ramón 01-29-2023 IMPRESSION: Unremarkable MRV head with and without contrast. Infusion Pharmacist: WILLIAM Transcribe Date/Time: Jan 29 2023 2:40P Dictated by : JENNIFER RUVALCABA MD This examination was interpreted and the report reviewed and electronically signed by: JENNIFER RUVALCABA MD on Jan 29 2023 2:44PM [facility] DIVISION OF RADIOLOGY * * *Final Report* * * DATE OF EXAM: Jan 29 2023 1:10PM LN 0336 - MRV BRAIN WO/W IVCON / PROCEDURE REASON: Idiopathic intracranial hypertension * * * * Physician Interpretation * * * * EXAMINATION: MRV BRAIN WO/W IVCON CLINICAL HISTORY: Idiopathic intracranial hypertension. TECHNIQUE: Intracranial 2-D tqxo-ae-xbbuld and postcontrast MRV with post-processing performed at [...] HISTORY: Idiopathic intracranial hypertension. TECHNIQUE: Intracranial 2-D fuhi-of-dgutnn and postcontrast MRV with post-processing performed at [...] Unremarkable MRV head with and without contrast. Infusion Pharmacist: WILLIAM Transcribe Date/Time: Jan 29 2023 2:40P Dictated by : JENNIFER RUVALCABA MD This examination was interpreted and the report reviewed and electronically signed by: JENNIFER RUVALCABA MD on Jan 29 2023 2:44PM [facility] Radiology Study observation (narrative) [facility] [...] 10 - 20 [facility] HEMATOLOGYOrdered By: evocatal SYSTEM on 01-15-2023 Basophils/100 WBC (Bld) 0.9 [...] PM) Normal Negative [facility] UA Auto SS [place].plasma/[place] .RBC (Bld) [Mass ratio] 0-3 /HPF Normal [...] PM) Invalid Interpretation Code 1.005 - 1.030 [facility] UA Auto SS UA Spec Desc Clean Catch (01/15/23 12:51 PM) Normal [facility] UA Auto SS Urobilinogen Qn (U) 0.3095342 {Lucila'U}/dL Normal 0.0 - 1.0 EU/dL [facility] UA Auto SS WBC Auto Ql (U) 1+ *ABN* (01/15/23 12:51 PM) Invalid Interpretation Code Negative [facility] UA Auto SS WBC LM.HPF (Urine sed) [#/Area] 0-5 /HPF Normal 0-5/HPF [facility] UA Auto SS BLOOD BANKOrdered By: Myrna Contreras on 12-05-2022 ABO/Rh Interp Negative Invalid Interpretation Code [facility] BB Subsection ABSC Gel Interp Negative (12/05/22 7:24 AM) Normal [facility] BB Subsection URINALYSISOrdered By: Kimberli Martin on [...] AM) Normal Negative [facility] UA Auto SS [place].plasma/[place] .RBC (Bld) [Mass ratio] 0-3 /HPF Normal 0-3/HPF [facility] UA Auto SS Nitrite Ql (U) Negative (12/05/22 10:05 AM) Normal Negative [facility] UA Auto SS pH (U) 6.5 *NA* (12/05/22 10:05 AM) Invalid Interpretation Code 5.0 - 9.0 [facility] UA Auto SS Protein (U) [Mass/Vol] Negative (12/05/22 10:05 AM) Normal Negative [facility] UA Auto SS Specific gravity (U) [Rel density] 1.015 *NA* (12/05/22 10:05 AM) Invalid Interpretation Code 1.005 - 1.030 [facility] UA Auto SS UA Spec Desc Catheter (12/05/22 10:05 AM) Normal [facility] UA Auto SS Urobilinogen Qn (U) 1.4667622 {Lucila'U}/dL Normal 0.0 - 1.0 EU/dL [facility] UA Auto SS WBC Auto Ql (U) Negative (12/05/22 10:05 AM) Normal Negative [facility] UA Auto SS [...] CNOV Office Visit ([facility] ) SHAZIA CHOU ([id number]) 1990 F Date Time Provider Department 11/20/22 8:00 AM EILEEN ALVAREZ [facility] During your visit today, we recorded the following information about you: Pulse Blood pressure Weight Height 67/minute 137/81 85.7 kg 1.702 m Last Period 10/23/22 Eileen Alvarez MD 11/20/2022 10:33 AM Signed [facility] New Patient [...] congenital deformity, 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 She has never seen an senior research executive. CSF protein 24, Glu 55, Pro 28, [...] congenital deformity, seen in the [facility] for: 1. [...] she agreed. She needs to follow with senior research executive every 6 months. In some patients with intracranial hypertension, there might be a concurrent transverse sinus stenosis and transverse sinus stenting may resolve the symptoms. I will do MRV. --HTN --H depression --Headache: there are a (more content not included)... Normal [facility] CBC AUTO DIFFon 10-30-2022 BASO # 0.0 103/ul Normal 0.0-0.1 [facility] Comment on above: Performed By: #### C JENNIE PATRICK LIPA #### [facility] [address] [place], [place] [address] Dr. Manuel Sandhu Basophils/100 WBC (Bld) 0.5 % Normal 0.2-2.0 [facility] Comment on above: Performed By: #### C JENNIE PATRICK LIPA #### [facility] [address] [place], [place] [address] Dr. Manuel Sandhu EO # 0.1 103/ul Normal 0.0-0.7 [facility] Comment on above: Performed By: #### C JENNIE PATRICK LIPA #### [facility] [address] [place], [place] [address] Dr. Manuel Sandhu Eosinophils/100 WBC (Bld) 1.6 % Normal 0.9-7.0 [facility] Comment on above: Performed By: #### C JENNIE PATRICK LIPA #### [facility] [address] [place] [address] Dr. Manuel Sandhu Erythrocyte distribution width (RBC) [Ratio] 13.8 % Normal 11.0-15.0 [facility] Comment on above: Performed By: #### C JENNIE PATRICK LIPA #### [facility] [address] [place] [address] Dr. Manuel Sandhu Hematocrit (Bld) [Volume fraction] 38.7 % Normal 36.0-48.0 [facility] Comment on above: Performed By: #### C JENNIE PATRICK LIPA #### [facility] [address] [place] [address] Dr. Manuel Sandhu Hemoglobin (Bld) [Mass/Vol] 12.9 g/dL Normal 12.0-16.0 [facility] Comment on above: Performed By: #### C JENNIE PATRICK LIPA #### [facility] [address] [place] [address] Dr. Manuel Sandhu IG # 0.03 10e3/ul Normal 0.00-0.03 [facility] Comment on above: Performed By: #### C JENNIE PATRICK LIPA #### [facility] [address] [place] [address] Dr. Manuel Sandhu IG % 0.4 % Normal 0.0-0.5 [facility] Comment on above: Performed By: #### C JENNIE PATRICK LIPA #### [facility] [address] [place] [address] Dr. Manuel Sandhu LYMPH # 2.1 103/ul Normal 1.2-3.8 [facility] Comment on above: Performed By: #### C JENNIE PATRICK LIPA #### [facility] [address] [place] [address] Dr. Manuel Sandhu Lymphocytes/100 WBC (Bld) 25.1 % Normal 20.5-60.0 [facility] Comment on above: Performed By: #### C JENNIE PATRICK LIPA #### [facility] [address] [place] [address] Dr. Manuel Sandhu MANUAL DIFF REQ NO Normal [facility] Comment on above: Performed By: #### C MP, JENNIE, LIPA #### [facility] [address] [place] [address] Dr. Manuel Sandhu MCH (RBC) [Entitic mass] 32.0 pg Normal 26.7-34.0 [facility] Comment on above: Performed By: #### C MP, JENNIE, LIPA #### [facility] [address] [place] [address] Dr. Manuel Sandhu MCHC (RBC) [Mass/Vol] 33.3 g/dL Normal 29.9-35.2 [facility] Comment on above: Performed By: #### C MP, JENNIE, LIPA #### [facility] [address] [place] [address] Dr. Manuel Sandhu MCV (RBC) [Entitic vol] 96.0 fL Normal 81.0-99.0 [facility] Comment on above: Performed By: #### C MP, JENNIE, LIPA #### [facility] [address] [place] [address] Dr. Manuel Sandhu MONO # 0.5 103/ul Normal 0.3-0.8 [facility] Comment on above: Performed By: #### C MP, JENNIE, LIPA #### [facility] [address] [place] [address] Dr. Manuel Sandhu Monocytes/100 WBC (Bld) 5.7 % Normal 1.7-12.0 [facility] Comment on above: Performed By: #### C MP, JENNIE, LIPA #### [facility] [address] [place] [address] Dr. Manuel Sandhu NEUT # 5.6 103/ul Normal 1.4-6.5 [facility] Comment on above: Performed By: #### C MP, JENNIE, LIPA #### [facility] [address] [place] [address] Dr. Manuel Sandhu Neutrophils/100 WBC (Bld) 66.7 % Normal 43.0-75.0 [facility] Comment on above: Performed By: #### C CELINA JENNIE, LIPA #### [facility] [address] [place] [address] Dr. Manuel Sandhu Platelet mean volume (Bld) [Entitic vol] 10.9 fL Normal 9.5-13.5 [facility] Comment on above: Performed By: #### C CELINA JENNIE, LIPA #### [facility] [address] [place] [address] Dr. Manuel Sandhu PLT 310 103/ul Normal 150-450 [facility] Comment on above: Performed By: #### C CELINA JENNIE, LIPA #### [facility] [address] [place] [address] Dr. Manuel Sandhu RBC 4.03 106/ul Critically low 4.20-5.40 [facility] Comment on above: Performed By: #### C CELINA JENNIE, LIPA #### [facility] [address] [place] [address] Dr. Manuel Sandhu WBC 8.4 103/ul Normal 4.0-11.0 [facility] Comment on above: Performed By: #### C JENNIE PATRICK, LIPA #### [facility] [address] [place] [address] Dr. Manuel Sandhu ER URINE PROFILEon 3 Bilirubin Ql (U) Negative Normal NEGATIVE [facility] Comment on above: Performed By: #### U MICRO, ERUR #### [facility] [address] [place] [address] Dr. Manuel Sandhu Clarity (U) CLEAR Normal CLEAR [facility] Comment on above: Performed By: #### U MICRO, ERUR #### [facility] [address] [place] [address] Dr. Manuel Sandhu Color (U) LT. YELLOW Normal YELLOW [facility] Comment on above: Performed By: #### U MICRO, ERUR #### [facility] [address] [place] [address] Dr. Manuel Sandhu ERUAHD A micrscopic examination will be performed if indicated. Normal [facility] Comment on above: Performed By: #### U MICRO, ERUR #### [facility] [address] [place] [address] [address] Manuel Sandhu Glucose Ql (U) Negative Normal NEGATIVE [facility] Comment on above: Performed By: #### U MICRO, ERUR #### [facility] [address] [place] [address] [address] Manuel Sandhu Hemoglobin Ql (U) LARGE Abnormal NEGATIVE [facility] Comment on above: Performed By: #### U MICRO, ERUR #### [facility] [address] [place] [address] [address] Manuel Sandhu Ketones Ql (U) Negative Normal NEGATIVE [facility] Comment on above: Performed By: #### U MICRO, ERUR #### [facility] [address] [place] [address] Dr. Manuel Sandhu LEUKOCYTES TRACE Abnormal NEGATIVE [facility] Comment on above: Performed By: #### U MICRO, ERUR #### [facility] [address] [place] [address] [address] Manuel Sandhu Nitrite Ql (U) Negative Normal NEGATIVE [facility] Comment on above: Performed By: #### U MICRO, ERUR #### [facility] [address] [place] [address] [address] Manuel Sandhu pH (U) 6.5 [pH] Normal 5-9 [facility] Comment on above: Performed By: #### U MICRO, ERUR #### [facility] [address] [place] [address] [address] Manuel Sandhu SPEC GRAVITY <=1.005 Abnormal 1.005-<=1.02 5 [facility] Comment on above: Performed By: #### U MICRO, ERUR #### [facility] [address] [place] [address] Dr. Manuel Sandhu UA PROTEIN Negative Normal NEGATIVE/ TRACE [facility] Comment on above: Performed By: #### U MICRO, ERUR #### [facility] [address] [place] [address] [address] Manuel Sandhu UR MICRO IND INDICATED Normal [facility] Comment on above: Performed By: #### U MICRO, ERUR #### [facility] [address] [place] [address] Dr. Manuel Sandhu Urobilinogen Qn (U) 0.2 {Lucila'U}/dL Normal 0.2 - 1. 0 [facility] Comment on above: Performed By: #### U MICRO, ERUR #### [facility] [address] [place] [address] Dr. Manuel Sandhu PROF CHEM 8 (BAS METB)on Anion gap [Moles/Vol] 11.7 mmol/L Normal [facility] Comment on above: Performed By: #### C JENNIE PATRICK LIPA #### [facility] [address] [place] [address] Dr. Manuel Sandhu Calcium [Mass/Vol] 9.1 mg/dL Normal 8.5-10.1 [facility] Comment on above: Performed By: #### C JENNIE PATRICK LIPA #### [facility] [address] [place] [address] Dr. Manuel Sandhu Chloride [Moles/Vol] 105 mmol/L Normal 98-107 [facility] Comment on above: Performed By: #### C JENNIE PATRICK LIPA #### [facility] [address] [place] [address] Dr. Manuel Sandhu CO2 [Moles/Vol] 26.8 mmol/L Normal 21.0-32.0 [facility] Comment on above: Performed By: #### C JENNIE PATRICK LIPA #### [facility] [address] [place] [address] Dr. Manuel Sandhu Creatinine [Mass/Vol] 0.62 mg/dL Normal 0.55-1.02 [facility] Comment on above: Performed By: #### C JENNIE PATRICK LIPA #### [facility] [address] [place] [address] Dr. Manuel Sandhu EGFR-AF BERMUDIAN >60 Normal >=60 [facility] Comment on above: Performed By: #### C JENNIE PATRICK LIPA #### [facility] [address] [place] [address] [address] Manuel Sandhu EGFR-NON AF BERMUDIAN >60 Normal >=60 [facility] Comment on above: Performed By: #### C JENNIE PATRICK LIPA #### [facility] [address] [place] [address] [address] Manuel Sandhu Glucose [Mass/Vol] 92 mg/dL Normal 74-106 [facility] Comment on above: Performed By: #### C JENNIE PATRICK LIPA #### [facility] [address] [place] [address] Dr. Manuel Sandhu Potassium [Moles/Vol] 3.5 mmol/L Normal 3.5-5.1 [facility] Comment on above: Performed By: #### C JENNIE PATRICK LIPA #### [facility] [address] [place] [address] Dr. Manuel Sandhu Sodium [Moles/Vol] 140 mmol/L Normal 136-145 [facility] Comment on above: Performed By: #### C JENNIE PATRICK LIPA #### [facility] [address] [place] [address] Dr. Manuel Sandhu Urea nitrogen [Mass/Vol] 8.0 mg/dL Normal 7.0-18.0 [facility] Comment on above: Performed By: #### C JENNIE PATRICK LIPA #### [facility] [address] [place] [address] Dr. Manuel Sandhu Urea nitrogen/Creatinine [Mass ratio] 12.9 mg/mg Normal [facility] Comment on above: Performed By: #### C JENNIE PATRICK LIPA #### [facility] [address] [place] [address] Dr. Manuel Sandhu URINE MICROSCOPIC ONLYon BACTERIA NONE SEEN Normal NONE SEEN [facility] Comment on above: Performed By: #### U MICRO, ERUR #### [facility] [address] [place] [address] Dr. Manuel Sandhu Bacteria identified Cx Nom (U) NOT INDICATED Normal [facility] Comment on above: Performed By: #### U MICRO, ERUR #### [facility] [address] [place] [address] Dr. Manuel Sandhu CAST NONE SEEN Normal NONE SEEN [facility] Comment on above: Performed By: #### U MICRO, ERUR #### [facility] [address] [place] [address] Dr. Manuel Sandhu Crystals LM Nom (Urine sed) NONE SEEN Normal NONE SEEN [facility] Comment on above: Performed By: #### U MICRO, ERUR #### [facility] [address] [place] [address] Dr. Manuel Sandhu Epithelial cells LM Ql (Urine sed) FEW Abnormal NONE SEEN /RARE [facility] Comment on above: Performed By: #### U MICRO, ERUR #### [facility] [address] [place] [address] Dr. Manuel Sandhu MUCOUS TRACE Abnormal NONE SEEN [facility] Comment on above: Performed By: #### U MICRO, ERUR #### [facility] [address] [place] [address] Dr. Manuel Sandhu RBC 5-10 Abnormal 0-2 [facility] Comment on above: Performed By: #### U MICRO, ERUR #### [facility] [address] [place] [address] Dr. Manuel Sandhu WBC 2-5 Abnormal NONE SEEN [facility] Comment on above: Performed By: #### U MICRO, ERUR #### [facility] [address] [place] [address] Dr. Manuel Sandhu No Panel InformationOrdered By: Dorita Nioñ on 08-19-2022 CSF Glucose 55 mg/dL 40-70 [facility] CSF Total Protein 24 mg/dL 15-[address] [facility] CBC AUTO DIFFon 08-16-2022 BASO # 0.1 103/ul Normal 0.0-0.1 [facility] Comment on above: Performed By: #### U MICRO, ERUR #### [facility] [address] [place] [address] Dr. Manuel Sandhu Basophils/100 WBC (Bld) 0.4 % Normal 0.2-2.0 [facility] Comment on above: Performed By: #### U MICRO, ERUR #### [facility] [address] [place] [address] Dr. Manuel Sandhu EO # 0.2 103/ul Normal 0.0-0.7 [facility] Comment on above: Performed By: #### U MICRO, ERUR #### [facility] [address] [place] [address] Dr. Manuel Sandhu Eosinophils/100 WBC (Bld) 1.8 % Normal 0.9-7.0 [facility] Comment on above: Performed By: #### U MICRO, ERUR #### [facility] [address] [place] [address] Dr. Manuel Sandhu Erythrocyte distribution width (RBC) [Ratio] 13.6 % Normal 11.0-15.0 [facility] Comment on above: Performed By: #### U MICRO, ERUR #### [facility] [address] [place] [address] Dr. Manuel Sandhu Hematocrit (Bld) [Volume fraction] 35.8 % Critically low 36.0-48.0 [facility] Comment on above: Performed By: #### U MICRO, ERUR #### [facility] [address] [place] [address] Dr. Manuel Sandhu Hemoglobin (Bld) [Mass/Vol] 12.2 g/dL Normal 12.0-16.0 [facility] Comment on above: Performed By: #### U MICRO, ERUR #### [facility] [address] [place] [address] Dr. Manuel Sandhu IG # 0.05 10e3/ul Critically high 0.00-0.03 [facility] Comment on above: Performed By: #### U MICRO, ERUR #### [facility] [address] [place] [address] Dr. Manuel Sandhu IG % 0.4 % Normal 0.0-0.5 [facility] Comment on above: Performed By: #### U MICRO, ERUR #### [facility] [address] [place] [address] Dr. Manuel Sandhu LYMPH # 2.0 103/ul Normal 1.2-3.8 [facility] Comment on above: Performed By: #### U MICRO, ERUR #### [facility] [address] [place] [address] Dr. Manuel Sandhu Lymphocytes/100 WBC (Bld) 18.1 % Critically low 20.5-60.0 [facility] Comment on above: Performed By: #### U MICRO, ERUR #### [facility] [address] [place] [address] Dr. Manuel Sandhu MANUAL DIFF REQ NO Normal [facility] Comment on above: Performed By: #### U MICRO, ERUR #### [facility] [address] [place] [address] Dr. Manuel Sandhu MCH (RBC) [Entitic mass] 32.0 pg Normal 26.7-34.0 [facility] Comment on above: Performed By: #### U MICRO, ERUR #### [facility] [address] [place] [address] Dr. Manuel Sandhu MCHC (RBC) [Mass/Vol] 34.1 g/dL Normal 29.9-35.2 [facility] Comment on above: Performed By: #### U MICRO, ERUR #### [facility] [address] [place] [address] Dr. Manuel Sandhu MCV (RBC) [Entitic vol] 94.0 fL Normal 81.0-99.0 [facility] Comment on above: Performed By: #### U MICRO, ERUR #### [facility] [address] [place] [address] Dr. Manuel Sandhu MONO # 0.7 103/ul Normal 0.3-0.8 [facility] Comment on above: Performed By: #### U MICRO, ERUR #### [facility] [address] [place] [address] Dr. Manuel Sandhu Monocytes/100 WBC (Bld) 5.8 % Normal 1.7-12.0 [facility] Comment on above: Performed By: #### U MICRO, ERUR #### [facility] [address] [place] [address] Dr. Manuel Sandhu NEUT # 8.2 103/ul Critically high 1.4-6.5 [facility] Comment on above: Performed By: #### U MICRO, ERUR #### [facility] [address] [address] [address] Manuel Sandhu Neutrophils/100 WBC (Bld) 73.5 % Normal 43.0-75.0 [facility] Comment on above: Performed By: #### U MICRO, ERUR #### [facility] [address] [address] [address] Manuel Sandhu Platelet mean volume (Bld) [Entitic vol] 11.3 fL Normal 9.5-13.5 [facility] Comment on above: Performed By: #### U MICRO, ERUR #### [facility] [address] [address] [address] Manuel Sandhu PLT 284 103/ul Normal 150-450 [facility] Comment on above: Performed By: #### U MICRO, ERUR #### [facility] [address] [address] [address] Manuel Sandhu RBC 3.81 106/ul Critically low 4.20-5.40 [facility] Comment on above: Performed By: #### U MICRO, ERUR #### [facility] [address] [address] [address] Manuel Sandhu WBC 11.2 103/ul Critically high 4.0-11.0 [facility] Comment on above: Performed By: #### U MICRO, ERUR #### [facility] [address] [address] [address] Manuel Sandhu D-DIMERon 08-16-2022 D-DIMER 0.34 mg/L FEU Normal <=0.59 [facility] Comment on above: Performed By: #### U MICRO, ERUR #### [facility] [address] [address] [address] Manuel Sandhu D-DIMER COMMENTS SEE BELOW Normal [facility] Comment on above: Result Comment: Incr eases [...] Performed By: #### U MICRO, ERUR #### [facility] [address] [place] [address] Dr. Manuel Sandhu PROF CHEM 8 (BAS METB)on Anion gap [Moles/Vol] 10.6 mmol/L Normal [facility] Comment on above: Performed By: #### I NFLUAB #### [facility] [address] [place] [address] Dr. Manuel Sandhu Calcium [Mass/Vol] 9.2 mg/dL Normal 8.5-10.1 [facility] Comment on above: Performed By: #### I NFLUAB #### [facility] [address] [place] [address] Dr. Manuel Sandhu Chloride [Moles/Vol] 103 mmol/L Normal 98-107 [facility] Comment on above: Performed By: #### I NFLUAB #### [facility] [address] [place] [address] Dr. Manuel Sandhu CO2 [Moles/Vol] 28.4 mmol/L Normal 21.0-32.0 [facility] Comment on above: Performed By: #### I NFLUAB #### [facility] [address] [place] [address] Dr. Manuel Sandhu Creatinine [Mass/Vol] 0.61 mg/dL Normal 0.55-1.02 [facility] Comment on above: Performed By: #### I NFLUAB #### [facility] [address] [place] [address] Dr. Manuel Sandhu EGFR-AF BERMUDIAN >60 Normal >=60 [facility] Comment on above: Performed By: #### I NFLUAB #### [facility] [address] [place] [address] Dr. Manuel Sandhu EGFR-NON AF BERMUDIAN >60 Normal >=60 [facility] Comment on above: Performed By: #### I NFLUAB #### [facility] [address] [address] [address] Manuel Sandhu Glucose [Mass/Vol] 90 mg/dL Normal 74-106 [facility] Comment on above: Performed By: #### I NFLUAB #### [facility] [address] [address] [address] Manuel Sandhu Potassium [Moles/Vol] 4.0 mmol/L Normal 3.5-5.1 [facility] Comment on above: Performed By: #### I NFLUAB #### [facility] [address] [address] [address] Manuel Sandhu Sodium [Moles/Vol] 138 mmol/L Normal 136-145 [facility] Comment on above: Performed By: #### I NFLUAB #### [facility] [address] [address] [address] Manuel Sandhu Urea nitrogen [Mass/Vol] 16.0 mg/dL Normal 7.0-18.0 [facility] Comment on above: Performed By: #### I NFLUAB #### [facility] [address] [address] [address] Manuel Sandhu Urea nitrogen/Creatinine [Mass ratio] 26.2 mg/mg Normal [facility] Comment on above: Performed By: #### I NFLUAB #### [facility] [address] [address] [address] Manuel Sandhu XR CHEST 1 Von [...] YOLI FRANKS Date: 2022-08-16 14:16 Normal [facility] Albumin [Mass/volume] in Ser um or PlasmaOrdered By: Sangeetha Peña on 08-12-2022 Albumin [Mass/Vol] 3.2 g/dL 3.2-5.5 [facility] Basophils Auto (Bld) [#/Vol] Ordered By: Sangeetha Peña on 08-12-2022 Basophils (Bld) [#/Vol] 0.1 10*3/uL 0.0-0.2 [facility] Basophils/100 WBC Auto (Bld) Ordered By: Sangeetha Peña on 08-12-2022 Basophils/100 WBC (Bld) 0.7 % . [facility] C reactive protein [Mass/vol ume] in Serum or PlasmaOrdered By: Sangeetha Peña on 08-12-2022 CRP [Mass/Vol] 0.5 mg/dL 0.0-1.0 [facility] Creatinine and Glomerular fi ltration rate.predicted panel (S/P/Bld)Ordered By: Sangeetha Peña on 08-12-2022 Creatinine [Mass/Vol] 0.65 mg/dL 0.44-1.03 [facility] Eosinophils Auto (Bld) [#/Vo l]Ordered By: Sangeehta Peña on 08-12-2022 Eosinophils (Bld) [#/Vol] 0.4 10*3/uL 0.0-0.45 [facility] Eosinophils/100 WBC Auto (Bl d)Ordered By: Sangeetha Peña on 08-12-2022 Eosinophils/100 WBC (Bld) 5.2 % . [facility] Erythrocyte distribution wid th Auto (RBC) [Ratio]Ordered By: Sangeetha Peña on 08-12-2022 Erythrocyte distribution width (RBC) [Ratio] 14.4 % 11.9-15.3 [facility] Erythrocyte sedimentation ra te by Photometric methodOrdered By: Dorita Niño on 08-12-2022 ESR Photometric method (Bld) [Velocity] 3 mm/hr 0-19 [facility] Estimated glomerular filtrat ion rate (GFR) non- AmericanOrdered By: Sangeetha Peña on 08-12-2022 GFR/1.73 sq M.predicted among non-blacks MDRD (S/P/Bld) [Vol rate/Area] > 60 mL/Min [facility] Folate [Mass/volume] in Seru m or PlasmaOrdered By: Lizzeth Malave on 08-12-2022 Folate [Mass/Vol] 15.3 ng/mL >5.[address] [facility] Comment on above: Folate reference ran ge: >5.9 ng/mlThe WHO technical consultation on folate and vitamin [id number] has determined that folate concentrations lessthan 4 ng/ml are considered deficient. Globulin Calc (S) [Mass/Vol] Ordered By: Sangeetha Peña on 08-12-2022 Globulin (S) [Mass/Vol] 2.4 g/dL [facility] HCG ( test) IA.rapi d Ql (U)Ordered By: Lizzeth Malave on 08-12-2022 HCG ( test) Ql (U) Negative [facility] Hematocrit Auto (Bld) [Volum e fraction]Ordered By: Sangeetha Peña on 08-12-2022 Hematocrit (Bld) [Volume fraction] 34.6 % 34.0-46.4 [facility] Hemoglobin [Mass/volume] in BloodOrdered By: Sangeetha Peña on 08-12-2022 Hemoglobin (Bld) [Mass/Vol] 11.3 g/dL 11.8-15.4 [facility] - Chemistry and C hemistry - challengeOrdered By: Lizzeth Malave on 08-12-2022 Cobalamin (Vitamin B12) [Mass/Vol] 610 pg/mL 180-914 [facility] Magnesium [Mass/Vol] 1.9 mg/dL 1.6-2.6 [facility] - Hematology and Cell countsOrdered By: Sangeetha Peña on 08-12-2022 Nucleated RBC/100 WBC (Bld) [Ratio] 0.1 % 0-0.5 [facility] Leukocytes [#/volume] in Blo od by Automated countOrdered By: Sangeetha Peña on 08-12-2022 WBC (Bld) [#/Vol] 8.3 10*3/uL 4.5-11.0 [facility] Lymphocytes Auto (Bld) [#/Vo l]Ordered By: Sangeetha Peña on 08-12-2022 Lymphocytes (Bld) [#/Vol] 2.3 10*3/uL 1.00-4.8 [facility] Lymphocytes/100 WBC Auto (Bl d)Ordered By: Sangeetha Peña on 08-12-2022 Lymphocytes/100 WBC (Bld) 27.4 % . [facility] MCH Auto (RBC) [Entitic mass ]Ordered By: Sangeetha Peña on 08-12-2022 MCH (RBC) [Entitic mass] 32.0 pg 24.7-34.3 [facility] MCHC Auto (RBC) [Mass/Vol]Or dered By: Sangeetha Peña on 08-12-2022 MCHC (RBC) [Mass/Vol] 32.8 g/dL 32.0-35.0 [facility] MCV Auto (RBC) [Entitic vol] Ordered By: Sangeetha Peña on 08-12-2022 MCV (RBC) [Entitic vol] 97.7 fL 80-100 [facility] Monocytes Auto (Bld) [#/Vol] Ordered By: Sangeetha Peña on 08-12-2022 Monocytes (Bld) [#/Vol] 0.7 10*3/uL 0.0-0.8 [facility] Monocytes/100 WBC Auto (Bld) Ordered By: Sangeetha Peña on 08-12-2022 Monocytes/100 WBC (Bld) 8.7 % . [facility] Neutrophils Auto (Bld) [#/Vo l]Ordered By: Sangeetha Peña on 08-12-2022 Neutrophils (Bld) [#/Vol] 4.8 10*3/uL 1.8-7.7 [facility] Neutrophils/100 WBC Auto (Bl d)Ordered By: Sangeetha Peña on 08-12-2022 Neutrophils/100 WBC (Bld) 58.0 % . [facility] No Panel InformationOrdered By: Sangeetha Peña on 08-12-2022 Estimated GFR () > 60 mL/Min [facility] Comment on above: GFR estimated refere nce range: According to KDOQI guidelines, <60 ml/min/1.73m2 is sufficient to diagnose a patient with chronic kidney disease. Pharmacy Creatinine Clearance (Chem 140.31 [facility] Platelet mean volume Auto (B ld) [Entitic vol]Ordered By: Sangeetha Peña on 08-12-2022 Platelet mean volume (Bld) [Entitic vol] 10.2 fL 6.3-10.7 [facility] Platelets Auto (Bld) [#/Vol] Ordered By: Sangeetha Peña on 08-12-2022 Platelets (Bld) [#/Vol] 263 10*3/uL 150-450 [facility] Protein [Mass/volume] in Ser um or PlasmaOrdered By: Sangeetha Peña on 08-12-2022 Protein [Mass/Vol] 5.6 g/dL 6.1-7.9 [facility] RBC Auto (Bld) [#/Vol]Ordere d By: Sangeetha Peña on 08-12-2022 RBC (Bld) [#/Vol] 3.54 10*6/uL 3.60-5.00 [facility] Serum or plasma alanine alberto otransferase measurement without P-5'-P (enzymatic activiOrdered By: Sangeetha Peña on 08-12-2022 ALT No additional P-5'-P [Catalytic activity/Vol] 22 U/L 10-60 [facility] Serum or plasma albumin/glob ulin mass ratioOrdered By: Sangeetha Peña on 08-12-2022 Albumin/Globulin [Mass ratio] 1.3 {ratio} [facility] Serum or plasma alkaline marquez sphatase measurement (enzymatic activity/volume)Ordered By: Sangeetha Peña on 08-12-2022 ALP [Catalytic activity/Vol] 54 U/L 32-92 [facility] Serum or plasma anion gap de terminationOrdered By: Sangeetha Peña on 08-12-2022 Anion gap [Moles/Vol] 10.6 mmol/L 6.0-15.0 [facility] Serum or plasma aspartate am inotransferase measurement (enzymatic activity/volume)Ordered By: Sangeetha Peña on 08-12-2022 AST [Catalytic activity/Vol] 20 U/L 10- [facility] Serum or plasma calcium audie urement (mass/volume)Ordered By: Sangeetha Peña on 08-12-2022 Calcium [Mass/Vol] 8.8 mg/dL 8.2-10.2 [facility] Serum or plasma chloride nimisha surement (moles/volume)Ordered By: Sangeetha Peña on 08-12-2022 Chloride [Moles/Vol] 105 mmol/L 95-114 [facility] Serum or plasma glucose audie urement (mass/volume)Ordered By: Sangeetha Peña on 08-12-2022 Glucose [Mass/Vol] 85 mg/dL 70-100 [facility] Comment on above: ADA recommended refe rence rangeRandom Glucose Reference Range is dependent on time and content of last meal. Glucose of more than 200 mg/dL in a nonstressed, ambulatory subject supports the diagnosis of Diabetes Mellitus. Serum or plasma potassium me asurement (moles/volume)Ordered By: Sangeetha Peña on 08-12-2022 Potassium [Moles/Vol] 4.2 mmol/L 3.5-5.1 [facility] Serum or plasma sodium measu rement (moles/volume)Ordered By: Sangeetha Peña on 08-12-2022 Sodium [Moles/Vol] 140 mmol/L 136-146 [facility] Serum or plasma total biliru bin measurement (mass/volume)Ordered By: Sangeetha Peña on 08-12-2022 Bilirubin [Mass/Vol] 0.5 mg/dL 0.3-1.2 [facility] Serum or plasma total carbon dioxide measurement (moles/volume)Ordered By: Sangeetha Peña on 08-12-2022 CO2 [Moles/Vol] 28.6 mmol/L 22.0-30.0 [facility] Serum or plasma urea nitroge n measurement (mass/volume)Ordered By: Sangeetha Peña on 08-12-2022 Urea nitrogen [Mass/Vol] 7 mg/dL - [facility] TSH DL <= 0.005 mIU/L QnOrde red By: Lizzeth Malave on 08-12-2022 TSH Qn 1.79 m[IU]/L 0.45-5.33 [facility] Troponin I.cardiac [Mass/vol ume] in Serum or Plasma by High sensitivity methodOrdered By: Lizzeth Malave on 08-12-2022 Troponin I.cardiac High sensitivity method [Mass/Vol] < 3 pg/mL 0-15 [facility] CBC AUTO DIFFon 08-11-2022 BASO # 0.1 103/ul Normal 0.0-0.1 [facility] Comment on above: Performed By: #### C MP, JENNIE, LIPA #### [facility] [address] [place] [address] Dr. Manuel Sandhu Basophils/100 WBC (Bld) 0.5 % Normal 0.2-2.0 [facility] Comment on above: Performed By: #### C MP, JENNIE, LIPA #### [facility] [address] [place] [address] Dr. Manuel Sandhu EO # 0.4 103/ul Normal 0.0-0.7 [facility] Comment on above: Performed By: #### C MP, JENNIE, LIPA #### [facility] [address] [place] [address] Dr. Manuel Sandhu Eosinophils/100 WBC (Bld) 2.4 % Normal 0.9-7.0 [facility] Comment on above: Performed By: #### C MP, JENNIE, LIPA #### [facility] [address] [place] [address] Dr. Manuel Sandhu Erythrocyte distribution width (RBC) [Ratio] 14.1 % Normal 11.0-15.0 [facility] Comment on above: Performed By: #### C MP, JENNIE, LIPA #### [facility] [address] [place] [address] Dr. Manuel Sandhu Hematocrit (Bld) [Volume fraction] 39.4 % Normal 36.0-48.0 [facility] Comment on above: Performed By: #### C MP, JENNIE, LIPA #### [facility] [address] [place] [address] Dr. Manuel Sandhu Hemoglobin (Bld) [Mass/Vol] 13.3 g/dL Normal 12.0-16.0 [facility] Comment on above: Performed By: #### C JENNIE PATRICK LIPA #### [facility] [address] [place] [address] Dr. Manuel Sandhu IG # 0.07 10e3/ul Critically high 0.00-0.03 [facility] Comment on above: Performed By: #### C JENNIE PATRICK LIPA #### [facility] [address] [place] [address] Dr. Manuel Sandhu IG % 0.5 % Normal 0.0-0.5 [facility] Comment on above: Performed By: #### C JENNIE PATRICK LIPA #### [facility] [address] [place] [address] Dr. Manuel Sandhu LYMPH # 3.6 103/ul Normal 1.2-3.8 [facility] Comment on above: Performed By: #### C JENNIE PATRICK LIPA #### [facility] [address] [place] [address] Dr. Manuel Sandhu Lymphocytes/100 WBC (Bld) 23.5 % Normal 20.5-60.0 [facility] Comment on above: Performed By: #### C JENNIE PATRICK LIPA #### [facility] [address] [place] [address] Dr. Manuel Sandhu MANUAL DIFF REQ NO Normal [facility] Comment on above: Performed By: #### C JENNIE PATRICK LIPA #### [facility] [address] [place] [address] Dr. Manuel Sandhu MCH (RBC) [Entitic mass] 32.1 pg Normal 26.7-34.0 [facility] Comment on above: Performed By: #### C JENNIE PATRICK LIPA #### [facility] [address] [place] [address] Dr. Manuel Sandhu MCHC (RBC) [Mass/Vol] 33.8 g/dL Normal 29.9-35.2 [facility] Comment on above: Performed By: #### C MP, JENNIE, LIPA #### [facility] [address] [place] [address] Dr. Manuel Sandhu MCV (RBC) [Entitic vol] 95.2 fL Normal 81.0-99.0 [facility] Comment on above: Performed By: #### C MP, JENNIE, LIPA #### [facility] [address] [address] [address] Manuel Sandhu MONO # 0.9 103/ul Critically high 0.3-0.8 [facility] Comment on above: Performed By: #### C MP, JENNIE, LIPA #### [facility] [address] [place] [address] Dr. Manuel Sandhu Monocytes/100 WBC (Bld) 5.8 % Normal 1.7-12.0 [facility] Comment on above: Performed By: #### C MP, JENNIE, LIPA #### [facility] [address] [place] [address] Dr. Manuel Sandhu NEUT # 10.3 103/ul Critically high 1.4-6.5 [facility] Comment on above: Performed By: #### C MP JENNIE, LIPA #### [facility] [address] [place] [address] Dr. Manuel Sandhu Neutrophils/100 WBC (Bld) 67.3 % Normal 43.0-75.0 [facility] Comment on above: Performed By: #### C MP, JENNIE, LIPA #### [facility] [address] [place] [address] Dr. Manuel Sandhu Platelet mean volume (Bld) [Entitic vol] 11.4 fL Normal 9.5-13.5 [facility] Comment on above: Performed By: #### C MP, JENNIE, LIPA #### [facility] [address] [place] [address] Dr. Manuel Sandhu PLT 364 103/ul Normal 150-450 [facility] Comment on above: Performed By: #### C MP, JENNIE, LIPA #### [facility] [address] [place] [address] Dr. Manuel Sandhu RBC 4.14 106/ul Critically low 4.20-5.40 [facility] Comment on above: Performed By: #### C MPJENNIE, LIPA #### [facility] [address] [address] [address] Manuel Sandhu WBC 15.3 103/ul Critically high 4.0-11.0 [facility] Comment on above: Performed By: #### C MP, JENNIE, LIPA #### [facility] [address] [address] [address] STROKE HEAD WOon [...] YOLI MCKEON Date: 2022-08-11 15:21 Normal [facility] ER URINE PROFILEon 2 Bilirubin Ql (U) Negative Normal NEGATIVE [facility] Comment on above: Performed By: #### U MICRO, ERUR #### [facility] [address] [place] [address] Dr. Manuel Sandhu Clarity (U) CLEAR Normal CLEAR [facility] Comment on above: Performed By: #### U MICRO, ERUR #### [facility] [address] [place] [address] Dr. Manuel Sandhu Color (U) LT. YELLOW Normal YELLOW [facility] Comment on above: Performed By: #### U MICRO, ERUR #### [facility] [address] [address] [address] Manuel CUNHA A micrscopic examination will be performed if indicated. Normal [facility] Comment on above: Performed By: #### U MICRO, ERUR #### [facility] [address] [address] [address] Manuel Sandhu Glucose Ql (U) Negative Normal NEGATIVE [facility] Comment on above: Performed By: #### U MICRO, ERUR #### [facility] [address] [place] [address] Dr. Manuel Sandhu Hemoglobin Ql (U) Negative Normal NEGATIVE [facility] Comment on above: Performed By: #### U MICRO, ERUR #### [facility] [address] [place] [address] Dr. Manuel Sandhu Ketones Ql (U) Negative Normal NEGATIVE [facility] Comment on above: Performed By: #### U MICRO, ERUR #### [facility] [address] [place] [address] Dr. Manuel Sandhu LEUKOCYTES Negative Normal NEGATIVE [facility] Comment on above: Performed By: #### U MICRO, ERUR #### [facility] [address] [place] [address] Dr. Manuel Sandhu Nitrite Ql (U) Negative Normal NEGATIVE [facility] Comment on above: Performed By: #### U MICRO, ERUR #### [facility] [address] [place] [address] Dr. Manuel Sandhu pH (U) 7.0 [pH] Normal 5-9 [facility] Comment on above: Performed By: #### U MICRO, ERUR #### [facility] [address] [place] [address] Dr. Manuel Sandhu SPEC GRAVITY <=1.005 Abnormal 1.005-<=1.02 5 [facility] Comment on above: Performed By: #### U MICRO, ERUR #### [facility] [address] [place] [address] Dr. Manuel Sandhu UA PROTEIN Negative Normal NEGATIVE/ TRACE [facility] Comment on above: Performed By: #### U MICRO, ERUR #### [facility] [address] [address] [address] Manuel Sandhu UR MICRO IND NOT INDICATED Normal [facility] Comment on above: Performed By: #### U MICRO, ERUR #### [facility] [address] [address] [address] Manuel Sandhu Urobilinogen Qn (U) 0.2 {Lucila'U}/dL Normal 0.2 - 1. 0 [facility] Comment on above: Performed By: #### U MICRO, ERUR #### [facility] [address] [place] [address] Dr. Manuel Sandhu LACTATE/LACTIC ACIDon 2021 Lactate [Moles/Vol] 1.5 mmol/L Normal 0.4-1.9 [facility] Comment on above: Performed By: #### I NFLUAB #### [facility] [address] [place] [address] Dr. Manuel Sandhu LIPASEon 08-11-2022 Lipase [Catalytic activity/Vol] 84.0 U/L Normal 73.0-393.0 [facility] Comment on above: Performed By: #### C MP, JENNIE, LIPA #### [facility] [address] [place] [address] Dr. Manuel Sandhu URon 08-11-2022 , QUAL Negative Normal NEGATIVE [facility] Comment on above: Performed By: #### U MICRO, ERUR #### [facility] [address] [place] [address] Dr. Manuel Sandhu PROF 14(COMP METB)on 022 Albumin [Mass/Vol] 4.3 g/dL Normal 3.4-5.0 [facility] Comment on above: Performed By: #### C MP, JENNIE, LIPA #### [facility] [address] [place] [address] Dr. Manuel Sandhu Albumin/Globulin [Mass ratio] 1.1 {ratio} Normal [facility] Comment on above: Performed By: #### C JENNIE PATRICK, LIPA #### [facility] [address] [place] [address] Dr. Manuel Sandhu ALP [Catalytic activity/Vol] 87 U/L Normal 46-116 [facility] Comment on above: Performed By: #### C MP JENNIE, LIPA #### [facility] [address] [place] [address] Dr. Manuel Sandhu ALT [Catalytic activity/Vol] 32 U/L Normal 14-59 [facility] Comment on above: Performed By: #### C JENNIE APTRICK, LIPA #### [facility] [address] [place] [address] Dr. Manuel Sandhu Anion gap [Moles/Vol] 12.7 mmol/L Normal [facility] Comment on above: Performed By: #### C CELINA JENNIE, LIPA #### [facility] [address] [place] [address] Dr. Manuel Sandhu AST [Catalytic activity/Vol] 24 U/L Normal 15-37 [facility] Comment on above: Performed By: #### C JENNIE PATRICK, LIPA #### [facility] [address] [place] [address] Dr. Manuel Sandhu Bilirubin [Mass/Vol] 0.3 mg/dL Normal 0.2-1.0 [facility] Comment on above: Performed By: #### C CELINA JENNIE, LIPA #### [facility] [address] [place] [address] Dr. Manuel Sandhu Calcium [Mass/Vol] 9.4 mg/dL Normal 8.5-10.1 [facility] Comment on above: Performed By: #### C CELINA JENNIE, LIPA #### [facility] [address] [place] [address] Dr. Manuel Sandhu Chloride [Moles/Vol] 100 mmol/L Normal 98-107 [facility] Comment on above: Performed By: #### C CELINA JENNIE, LIPA #### [facility] [address] [address] [address] Manuel Sandhu CO2 [Moles/Vol] 27.7 mmol/L Normal 21.0-32.0 [facility] Comment on above: Performed By: #### C JENNIE PATRICK, LIPA #### [facility] [address] [address] [address] Manuel Sandhu Creatinine [Mass/Vol] 0.71 mg/dL Normal 0.55-1.02 [facility] Comment on above: Performed By: #### C JENNIE PATRICK, LIPA #### [facility] [address] [address] [address] Manuel Sandhu EGFR-AF BERMUDIAN >60 Normal >=60 [facility] Comment on above: Performed By: #### C JENNIE PATRICK, LIPA #### [facility] [address] [address] [address] Manuel Sandhu EGFR-NON AF BERMUDIAN >60 Normal >=60 [facility] Comment on above: Performed By: #### C JENNIE PATRICK, LIPA #### [facility] [address] [address] [address] Manuel Sandhu Globulin (S) [Mass/Vol] 3.9 g/dL Normal [facility] Comment on above: Performed By: #### C JENNIE PATRICK, LIPA #### [facility] [address] [address] [address] Manuel Sandhu Glucose [Mass/Vol] 109 mg/dL Critically high 74-106 [facility] Comment on above: Performed By: #### C JENNIE PATRICK, LIPA #### [facility] [address] [address] [address] Manuel Sandhu Potassium [Moles/Vol] 3.4 mmol/L Critically low 3.5-5.1 [facility] Comment on above: Performed By: #### C JENNIE PATRICK, LIPA #### [facility] [address] [address] [address] Manuel Sandhu Protein [Mass/Vol] 8.2 g/dL Normal 6.4-8.2 [facility] Comment on above: Performed By: #### C JENNIE PATRICK, LIPA #### [facility] [address] [place] [address] Dr. Manuel Sandhu Sodium [Moles/Vol] 137 mmol/L Normal 136-145 [facility] Comment on above: Performed By: #### C MP, JENNIE, LIPA #### [facility] [address] [place] [address] Dr. Manuel Sandhu Urea nitrogen [Mass/Vol] 10.0 mg/dL Normal 7.0-18.0 [facility] Comment on above: Performed By: #### C MP, JENNIE, LIPA #### [facility] [address] [place] [address] Dr. Manuel Sandhu Urea nitrogen/Creatinine [Mass ratio] 14.1 mg/mg Normal [facility] Comment on above: Performed By: #### C MP JENNIE, LIPA #### [facility] [address] [place] [address] Dr. Manuel Sandhu PROTIMEon 08-11-2022 INR Coag (PPP) [Relative time] 0.96 {INR} Normal [facility] Comment on above: Performed By: #### I NFLUAB #### [facility] [address] [place] [address] Dr. Manuel Sandhu INR GUIDELINES SEE BELOW Normal [facility] Comment on above: Result Comment: CHUY RED INR: 2.0 - 3.0 CONDITIONS NOT LISTED BELOW 2.5 - 3.5 FOR PROSTHETIC HEART VALVE REPLACEMENT 2.5 - 3.5 RECURRENT THROMBOSIS Performed By: #### I NFLUAB #### [facility] [address] [place] [address] Dr. Manuel Sandhu PT Coag (PPP) [Time] 10.4 s Normal 9.0-11.6 [facility] Comment on above: Performed By: #### I NFLUAB #### [facility] [address] [place] [address] Dr. Manuel Sandhu PTTon 08-11-2022 aPTT Coag (Bld) [Time] 25.3 s Normal 22.3-36.2 [facility] Comment on above: Performed By: #### I NFLUAB #### [facility] [address] [place], [place] [address] Dr. Manuel Sandhu TROPONIN, HIGH SENSITIVITYon 08-11-2022 HSTROP 4.5 pg/mL Normal 4.0-51.3 [facility] Comment on above: Result Comment: CUT- OFF POINTS HAVE BEEN ESTABLISHED BASED ON THE FOURTH UNIVERSAL DEFINITIONS OF MYOCARDIAL INFARCTION. THE UPPER REFERENCE LIMIT (URL) OF TROPONIN, DEFINED THE 99TH PERCENTILE OF cTnI DISTRIBUTION IN A REFERENCE POPULATION, HAS BEEN CONFIRMED THE DECISION THRESHOLD FOR DC DIAGNOSIS. Performed By: #### C JENNIE PATRICK LIPA #### [facility] [address] [address] [address] Maunel Sandhu TSHon 08-11-2022 TSH 1.778 uIU/mL Normal 0.358-3.740 [facility] Comment on above: Performed By: #### C JENNIE PATRICK LIPA #### [facility] [address] [address] [address] Manuel Sandhu CHEMISTRYOrdered By: SYSTEM SYSTEM [...] rate/Area] mL/min/1.73 m2 Normal >=59mL/min/1 .73 m2 [facility] Chem S Glucose [Mass/Vol] 84 mg/dL Normal 55 - 199 mg/dL [facility] Remisol Potassium [Moles/Vol] 4.2 mmol/L Normal 3.5 - 5.3 mmol/L [facility] Remisol Sodium [Moles/Vol] 137 mmol/L Normal 135 - 145 mmol/L [facility] Remisol Urea nitrogen [Mass/Vol] 13 mg/dL Normal 5 - 21 mg/dL [facility] Remisol Urea nitrogen/Creatinine [Mass ratio] 22 mg/mg High 10 - 20 [facility] CHEMISTRYOrdered By: Lab ROP User on 08-08-2022 Glucose [Mass/Vol] 98 mg/dL Normal 55 - 99 mg/dL [facility] POC Subsection POC Device SN [id number] Invalid Interpretation Code [facility] POC Subsection POC User ID [id number] Invalid Interpretation Code [facility] POC Subsection POC Username MOLLY RALPH Invalid Interpretation Code [facility] POC Subsection HEMATOLOGYOrdered By: SYSTEM SYSTEM on [...] hCG Ql Negative (08/08/22 9:51 AM) Normal [facility] Man Sero URINALYSISOrdered By: Kimberli Briseno on [...] AM) Normal Negative [facility] UA Auto SS [place].plasma/[place] .RBC (Bld) [Mass ratio] 0-3 /HPF Normal [...] [facility] UA Auto SS Urobilinogen Qn (U) 0.7243977 {Lucila'U}/dL Normal 0.0 - 1.0 EU/dL [facility] UA Auto SS WBC Auto Ql (U) Negative (08/08/22 10:01 AM) Normal Negative [facility] UA Auto SS WBC LM.HPF (Urine sed) [#/Area] 0-5 /HPF Normal 0-5/HPF [facility] UA Auto SS CBC AUTO DIFFon 07-19-2022 BASO # 0.1 103/ul Normal 0.0-0.1 [facility] Comment on above: Performed By: #### I NFLUAB #### [facility] [address] [address] [address] Manuel Sandhu Basophils/100 WBC (Bld) 0.4 % Normal 0.2-2.0 [facility] Comment on above: Performed By: #### I NFLUAB #### [facility] [address] [address] [address] Manuel Sandhu EO # 0.3 103/ul Normal 0.0-0.7 [facility] Comment on above: Performed By: #### I NFLUAB #### [facility] [address] [place] [address] Dr. Manuel Sandhu Eosinophils/100 WBC (Bld) 2.4 % Normal 0.9-7.0 [facility] Comment on above: Performed By: #### I NFLUAB #### [facility] [address] [place] [address] Dr. Manuel Sandhu Erythrocyte distribution width (RBC) [Ratio] 13.7 % Normal 11.0-15.0 [facility] Comment on above: Performed By: #### I NFLUAB #### [facility] [address] [place] [address] Dr. Manuel Sandhu Hematocrit (Bld) [Volume fraction] 36.5 % Normal 36.0-48.0 [facility] Comment on above: Performed By: #### I NFLUAB #### [facility] [address] [place] [address] Dr. Manuel Sandhu Hemoglobin (Bld) [Mass/Vol] 12.3 g/dL Normal 12.0-16.0 [facility] Comment on above: Performed By: #### I NFLUAB #### [facility] [address] [place] [address] Dr. Manuel Sandhu IG # 0.04 10e3/ul Critically high 0.00-0.03 [facility] Comment on above: Performed By: #### I NFLUAB #### [facility] [address] [address] [address] Manuel Sandhu IG % 0.3 % Normal 0.0-0.5 [facility] Comment on above: Performed By: #### I NFLUAB #### [facility] [address] [address] [address] Manuel Sandhu LYMPH # 2.6 103/ul Normal 1.2-3.8 [facility] Comment on above: Performed By: #### I NFLUAB #### [facility] [address] [address] [address] Manuel Sandhu Lymphocytes/100 WBC (Bld) 22.3 % Normal 20.5-60.0 [facility] Comment on above: Performed By: #### I NFLUAB #### [facility] [address] [place] [address] Dr. Manuel Sandhu MANUAL DIFF REQ NO Normal [facility] Comment on above: Performed By: #### I NFLUAB #### [facility] [address] [place] [address] Dr. Manuel Sandhu MCH (RBC) [Entitic mass] 32.5 pg Normal 26.7-34.0 [facility] Comment on above: Performed By: #### I NFLUAB #### [facility] [address] [place] [address] Dr. Manuel Sandhu MCHC (RBC) [Mass/Vol] 33.7 g/dL Normal 29.9-35.2 [facility] Comment on above: Performed By: #### I NFLUAB #### [facility] [address] [address] [address] Manuel Sandhu MCV (RBC) [Entitic vol] 96.6 fL Normal 81.0-99.0 [facility] Comment on above: Performed By: #### I NFLUAB #### [facility] [address] [place] [address] Dr. Manuel Sandhu MONO # 0.6 103/ul Normal 0.3-0.8 [facility] Comment on above: Performed By: #### I NFLUAB #### [facility] [address] [address] [address] Manuel Sandhu Monocytes/100 WBC (Bld) 5.2 % Normal 1.7-12.0 [facility] Comment on above: Performed By: #### I NFLUAB #### [facility] [address] [address] [address] Manuel Sandhu NEUT # 8.2 103/ul Critically high 1.4-6.5 [facility] Comment on above: Performed By: #### I NFLUAB #### [facility] [address] [place] [address] Dr. Manuel Sandhu Neutrophils/100 WBC (Bld) 69.4 % Normal 43.0-75.0 [facility] Comment on above: Performed By: #### I NFLUAB #### [facility] [address] [place] [address] Dr. Manuel Sandhu Platelet mean volume (Bld) [Entitic vol] 11.2 fL Normal 9.5-13.5 [facility] Comment on above: Performed By: #### I NFLUAB #### [facility] [address] [place] [address] Dr. Manuel Sandhu PLT 308 103/ul Normal 150-450 [facility] Comment on above: Performed By: #### I NFLUAB #### [facility] [address] [place] [address] Dr. Manuel Sandhu RBC 3.78 106/ul Critically low 4.20-5.40 [facility] Comment on above: Performed By: #### I NFLUAB #### [facility] [address] [place] [address] Dr. Manuel Sandhu WBC 11.8 103/ul Critically high 4.0-11.0 [facility] Comment on above: Performed By: #### I NFLUAB #### [facility] [address] [place] [address] Dr. Manuel Sandhu D-DIMERon 07-19-2022 D-DIMER 0.29 mg/L FEU Normal <=0.59 [facility] Comment on above: Performed By: #### U MICRO, ERUR #### [facility] [address] [place] [address] Dr. Manuel Sandhu D-DIMER COMMENTS SEE BELOW Normal [facility] Comment on above: Result Comment: [...] Performed By: #### U MICRO, ERUR #### [facility] [address] [place] [address] Dr. Manuel Sandhu LIPASEon 07-19-2022 Lipase [Catalytic activity/Vol] 119.0 U/L Normal 73.0-393.0 [facility] Comment on above: Performed By: #### C MP, JENNIE, LIPA #### [facility] [address] [place] [address] Dr. Manuel Sandhu PROF 14(COMP METB)on 022 Albumin [Mass/Vol] 3.5 g/dL Normal 3.4-5.0 [facility] Comment on above: Performed By: #### C MP, JENNIE, LIPA #### [facility] [address] [place] [address] Dr. Manuel Sandhu Albumin/Globulin [Mass ratio] 1.0 {ratio} Normal [facility] Comment on above: Performed By: #### C MP, JENNIE, LIPA #### [facility] [address] [place] [address] Dr. Manuel Sandhu ALP [Catalytic activity/Vol] 65 U/L Normal 46-116 [facility] Comment on above: Performed By: #### C MP, JENNIE, LIPA #### [facility] [address] [place] [address] Dr. Manuel Sandhu ALT [Catalytic activity/Vol] 33 U/L Normal 14-59 [facility] Comment on above: Performed By: #### C MP, JENNIE, LIPA #### [facility] [address] [address] [address] Manuel Sandhu Anion gap [Moles/Vol] 10.8 mmol/L Normal [facility] Comment on above: Performed By: #### C MP, JENNIE, LIPA #### [facility] [address] [address] [address] Manuel Sandhu AST [Catalytic activity/Vol] 20 U/L Normal 15-37 [facility] Comment on above: Performed By: #### C MP, JENNIE, LIPA #### [facility] [address] [address] [address] Manuel Sandhu Bilirubin [Mass/Vol] 0.1 mg/dL Critically low 0.2-1.0 [facility] Comment on above: Performed By: #### C MP, JENNIE, LIPA #### [facility] [address] [place] [address] Dr. Manuel Sandhu Calcium [Mass/Vol] 8.7 mg/dL Normal 8.5-10.1 [facility] Comment on above: Performed By: #### C MP, JENNIE, LIPA #### [facility] [address] [place] [address] Dr. Manuel Sandhu Chloride [Moles/Vol] 105 mmol/L Normal 98-107 [facility] Comment on above: Performed By: #### C MP, JENNIE, LIPA #### [facility] [address] [address] [address] Manuel Sandhu CO2 [Moles/Vol] 24.4 mmol/L Normal 21.0-32.0 [facility] Comment on above: Performed By: #### C MP, JENNIE, LIPA #### [facility] [address] [place] [address] Dr. Manuel Sandhu Creatinine [Mass/Vol] 0.91 mg/dL Normal 0.55-1.02 [facility] Comment on above: Performed By: #### C MP, JENNIE, LIPA #### [facility] [address] [place] [address] Dr. Manuel Sandhu EGFR-AF BERMUDIAN >60 Normal >=60 [facility] Comment on above: Performed By: #### C JENNIE PATRICK LIPA #### [facility] [address] [address] [address] Manuel Sandhu EGFR-NON AF BERMUDIAN >60 Normal >=60 [facility] Comment on above: Performed By: #### C JENNIE PATRICK LIPA #### [facility] [address] [place] [address] Dr. Manuel Sandhu Globulin (S) [Mass/Vol] 3.4 g/dL Normal [facility] Comment on above: Performed By: #### C JENNIE PATRICK LIPA #### [facility] [address] [place] [address] Dr. Manuel Sandhu Glucose [Mass/Vol] 127 mg/dL Critically high 74-106 [facility] Comment on above: Performed By: #### C JENNIE PATRICK LIPA #### [facility] [address] [place] [address] Dr. Manuel Sandhu Potassium [Moles/Vol] 3.2 mmol/L Critically low 3.5-5.1 [facility] Comment on above: Performed By: #### C JENNIE PATRICK LIPA #### [facility] [address] [place] [address] Dr. Manuel Snadhu Protein [Mass/Vol] 6.9 g/dL Normal 6.4-8.2 [facility] Comment on above: Performed By: #### C JENNIE PATRICK LIPA #### [facility] [address] [place] [address] Dr. Manuel Sandhu Sodium [Moles/Vol] 137 mmol/L Normal 136-145 [facility] Comment on above: Performed By: #### C JENNIE PATRICK LIPA #### [facility] [address] [place] [address] Dr. Manuel Sandhu Urea nitrogen [Mass/Vol] 13.0 mg/dL Normal 7.0-18.0 [facility] Comment on above: Performed By: #### C MP, JENNIE, LIPA #### [facility] [address] [place] [address] Dr. Manuel Sandhu Urea nitrogen/Creatinine [Mass ratio] 14.3 mg/mg Normal [facility] Comment on above: Performed By: #### C MP, JENNIE, LIPA #### [facility] [address] [address] [address] Manuel Sandhu PROTIMEon 07-19-2022 INR Coag (PPP) [Relative time] 0.97 {INR} Normal [facility] Comment on above: Performed By: #### P TT, PT #### [facility] [address] [place] [address] Dr. Manuel Sandhu INR GUIDELINES SEE BELOW Normal [facility] Comment on above: Result Comment: CHUY RED INR: 2.0 - 3.0 CONDITIONS NOT LISTED BELOW 2.5 - 3.5 FOR PROSTHETIC HEART VALVE REPLACEMENT 2.5 - 3.5 RECURRENT THROMBOSIS Performed By: #### P TT, PT #### [facility] [address] [place] [address] Dr. Manuel Sandhu PT Coag (PPP) [Time] 10.5 s Normal 9.0-11.6 [facility] Comment on above: Performed By: #### P TT, PT #### [facility] [address] [place] [address] Dr. Manuel Sandhu PTTon 07-19-2022 aPTT Coag (Bld) [Time] 26.1 s Normal 22.3-36.2 [facility] Comment on above: Performed By: #### P TT, PT #### [facility] [address] [place] [address] Dr. Manuel Sandhu TROPONIN, HIGH SENSITIVITYon 07-19-2022 HSTROP 5.4 pg/mL Normal 4.0-51.3 [facility] Comment on above: Result Comment: CUT- OFF POINTS HAVE BEEN ESTABLISHED BASED ON THE FOURTH UNIVERSAL DEFINITIONS OF MYOCARDIAL INFARCTION. THE UPPER REFERENCE LIMIT (URL) OF TROPONIN, DEFINED THE 99TH PERCENTILE OF cTnI DISTRIBUTION IN A REFERENCE POPULATION, HAS BEEN CONFIRMED THE DECISION THRESHOLD FOR DC DIAGNOSIS. Performed By: #### U MICRO, ERUR #### [facility] [address], [place] [address] Dr. Manuel Sandhu HSTROP 5.1 pg/mL Normal 4.0-51.3 [facility] Comment on above: Result Comment: CUT- OFF POINTS HAVE BEEN ESTABLISHED BASED ON THE FOURTH UNIVERSAL DEFINITIONS OF MYOCARDIAL INFARCTION. THE UPPER REFERENCE LIMIT (URL) OF TROPONIN, DEFINED THE 99TH PERCENTILE OF cTnI DISTRIBUTION IN A REFERENCE POPULATION, HAS BEEN CONFIRMED THE DECISION THRESHOLD FOR DC DIAGNOSIS. Performed By: #### C JENNIE PATRICK LIPA #### [facility] [address], [place] [address] Dr. Manuel Sandhu XR CHEST 1 Von [...] LUCIANA ALLEN Date: 2022-07-19 19:28 Normal [facility] Covid-19 PCR (CVDTB)on 05-16 SARS-CoV-2 (COVID-19) RNA JOSÉ MIGUEL+probe Ql (Unsp spec) Not detected Normal NOT DETECTED [facility] Comment on above: Result Comment: When [...] for this test is supported by the [place] of [employer] and Human Service's declaration that [...] By: #### C JENNIE PATRICK LIPA #### [facility] [address] [address] [address] Manuel Sandhu XR CHEST 2 Von [...] CAROLYNE RALPH Date: 2022-06-12 10:12 Normal [facility] Covid-19 PCR (CVDTB)on 05-15 SARS-CoV-2 (COVID-19) RNA JOSÉ MIGUEL+probe Ql (Unsp spec) Not detected Normal NOT DETECTED [facility] Comment on above: Result Comment: When [...] for this test is supported by the [place] of [employer]'s declaration that [...] used). Performed By: #### I NFLUAB #### [facility] [address], [place] [address] Dr. Manuel Sandhu CHEMISTRYOrdered By: SYSTEM SYSTEM on 04-20-2022 Anion gap [Moles/Vol] 12 mmol/L Normal 6 - 16 mEq/L [facility] Remisol Calcium [Mass/Vol] 9.5 mg/dL Normal 8.9 - 11. 1 mg/dL [facility] Chloride [Moles/Vol] 107 mmol/L Normal 101 [...] rate/Area] mL/min/1.73 m2 Normal >=59mL/min/1 .73 m2 [facility] Chem S Glucose [Mass/Vol] 98 mg/dL Normal [...] spec) Detected Critically abnormal NOT DETECTED [facility] Comment on above: Result Comment: This test is not yet approved or cleared by the [place] FDA. When there are no FDA-approved or cleared tests available, and other criteria are met, FDA can make tests available under an emergency access mechanism called an Emergency Use Authorization (EUA). The EUA for this test is supported by the [place] of [employer] and Human Service's declaration that [...] By: #### C JENNIE PATRICK LIPA #### [facility] [address] [place] [address] Dr. Manuel Sandhu GROUP A STREP CULTUREon 03-15 S. pyogenes Ag Ql (Unsp spec) Culture Observations: NEGATIVE FOR GROUP A STREPTOCOCCUS. Normal [facility] Comment on above: Performed By: #### U MICRO, ERUR #### [facility] [address] [place] [address] Dr. Manuel Sandhu INFLUENZA A AND B AGon 04-07 INFLUENZA A AG Negative Normal NEGATIVE SEE COMMENT [facility] Comment on above: Performed By: #### I NFLUAB #### [facility] [address] [place] [address] Dr. Manuel Sandhu INFLUENZA B AG Negative Normal NEGATIVE SEE COMMENT [facility] Comment on above: Performed By: #### I NFLUAB #### [facility] [address] [place] [address] Dr. Manuel Sandhu INTERNAL CONTROLS Within Normal Limits Normal Wi thin Normal Limits [facility] Comment on above: Performed By: #### I NFLUAB #### [facility] [address] [place] [address] Dr. Manuel Sandhu STREPT SCREENon 04-07-2022 STREP SCREEN A Negative Normal NEGATIVE [facility] Comment on above: Performed By: #### U MICRO, ERUR #### [facility] [address] [address] [address] Manuel Sandhu CHEMISTRYOrdered By: SYSTEM SYSTEM [...] PM) Normal Negative [facility] UA Auto SS [place].plasma/[place] .RBC (Bld) [Mass ratio] 0-3 /HPF Normal [...] Desc Clean Catch (04/03/22 6:51 PM) Normal [facility] UA Auto SS Urobilinogen Qn (U) [id number] {Lucila'U}/dL Normal 0.0 - 1.0 EU/dL [facility] UA Auto SS WBC Auto Ql (U) Negative (04/03/22 6:51 PM) Normal Negative [facility] UA Auto SS WBC LM.HPF (Urine sed) [#/Area] 0-5 /HPF Normal 0-5/HPF [facility] UA Auto SS GROUP A STREP CULTUREon 01-13 S. pyogenes Ag Ql (Unsp spec) Culture Observations: NEGATIVE FOR GROUP A STREPTOCOCCUS. Normal [facility] Comment on above: Performed By: #### I NFLUAB #### [facility] [address] [place] [address] Dr. Manuel Sandhu STREPT SCREENon 02-08-2022 STREP SCREEN A Negative Normal NEGATIVE [facility] Comment on above: Performed By: #### I NFLUAB #### [facility] [address] [place] [address] Dr. Manuel Sandhu CBC AUTO DIFFon 01-30-2022 BASO # 0.1 103/ul Normal 0.0-0.1 [facility] Comment on above: Performed By: #### C BC #### [facility] [address] [place] [address] Dr. Manuel Sandhu Basophils/100 WBC (Bld) 0.4 % Normal 0.2-2.0 [facility] Comment on above: Performed By: #### C BC #### [facility] [address] [place] [address] Dr. Manuel Sandhu EO # 0.4 103/ul Normal 0.0-0.7 [facility] Comment on above: Performed By: #### C BC #### [facility] [address] [place] [address] Dr. Manuel Sandhu Eosinophils/100 WBC (Bld) 3.0 % Normal 0.9-7.0 [facility] Comment on above: Performed By: #### C BC #### [facility] [address] [place] [address] Dr. Manuel Sandhu Erythrocyte distribution width (RBC) [Ratio] 13.3 % Normal 11.0-15.0 [facility] Comment on above: Performed By: #### C BC #### [facility] [address] [place] [address] Dr. Manuel Sandhu Hematocrit (Bld) [Volume fraction] 36.8 % Normal 36.0-48.0 [facility] Comment on above: Performed By: #### C BC #### [facility] [address] [place] [address] Dr. Manuel Sandhu Hemoglobin (Bld) [Mass/Vol] 12.2 g/dL Normal 12.0-16.0 [facility] Comment on above: Performed By: #### C BC #### [facility] [address] [place] [address] Dr. Manuel Sandhu IG # 0.04 10e3/ul Critically high 0.00-0.03 [facility] Comment on above: Performed By: #### C BC #### [facility] [address] [place] [address] Dr. Manuel Sandhu IG % 0.3 % Normal 0.0-0.5 [facility] Comment on above: Performed By: #### C BC #### [facility] [address] [place] [address] Dr. Manuel Sandhu LYMPH # 2.8 103/ul Normal 1.2-3.8 [facility] Comment on above: Performed By: #### C BC #### [facility] [address] [place] [address] Dr. Manuel Sandhu Lymphocytes/100 WBC (Bld) 23.0 % Normal 20.5-60.0 [facility] Comment on above: Performed By: #### C BC #### [facility] [address] [place] [address] Dr. Manuel Sandhu MANUAL DIFF REQ NO Normal [facility] Comment on above: Performed By: #### C BC #### [facility] [address] [place] [address] Dr. Manuel Sandhu MCH (RBC) [Entitic mass] 32.1 pg Normal 26.7-34.0 [facility] Comment on above: Performed By: #### C BC #### [facility] [address] [place] [address] Dr. Manuel Sandhu MCHC (RBC) [Mass/Vol] 33.2 g/dL Normal 29.9-35.2 [facility] Comment on above: Performed By: #### C BC #### [facility] [address] [place] [address] Dr. Manuel Sandhu MCV (RBC) [Entitic vol] 96.8 fL Normal 81.0-99.0 [facility] Comment on above: Performed By: #### C BC #### [facility] [address] [place] [address] Dr. Manuel Sandhu MONO # 0.7 103/ul Normal 0.3-0.8 [facility] Comment on above: Performed By: #### C BC #### [facility] [address] [place] [address] Dr. Manuel Sandhu Monocytes/100 WBC (Bld) 5.6 % Normal 1.7-12.0 [facility] Comment on above: Performed By: #### C BC #### [facility] [address] [place] [address] Dr. Manuel Sandhu NEUT # 8.2 103/ul Critically high 1.4-6.5 [facility] Comment on above: Performed By: #### C BC #### [facility] [address] [place] [address] Dr. Manuel Sandhu Neutrophils/100 WBC (Bld) 67.7 % Normal 43.0-75.0 [facility] Comment on above: Performed By: #### C BC #### [facility] [address] [place] [address] Dr. Manuel Sandhu Platelet mean volume (Bld) [Entitic vol] 11.2 fL Normal 9.5-13.5 [facility] Comment on above: Performed By: #### C BC #### [facility] [address] [place] [address] Dr. Manuel Sandhu PLT 312 103/ul Normal 150-450 [facility] Comment on above: Performed By: #### C BC #### [facility] [address] [place] [address] Dr. Manuel Sandhu RBC 3.80 106/ul Critically low 4.20-5.40 [facility] Comment on above: Performed By: #### C BC #### [facility] [address] [address] [address] Manuel Sandhu WBC 12.1 103/ul Critically high 4.0-11.0 [facility] Comment on above: Performed By: #### C BC #### [facility] [address] [place] [address] Dr. Manuel Sandhu [facility]on [facility]-12 SARS-CoV-2 (COVID-19) RNA JOSÉ MIGUEL+probe Ql (Unsp spec) Not detected Normal NOT DETECTED [facility] Comment on above: Result Comment: This test is not yet approved or cleared by the [place] FDA. When there are no FDA-approved or cleared tests available, and other criteria are met, FDA can make tests available under an emergency access mechanism called an Emergency Use Authorization (EUA). The EUA for this test is supported by the [place] of Health and Human Service's (HHS's) declaration [...] SARS-CoV-2. Performed By: #### C VDTBH #### [facility] [address] [place] [address] Dr. Manuel Sandhu DRUG SCREEN RAPID (URINE)on 01-30-2022 AMP Negative Normal NEGATIVE [facility] Comment on above: Performed By: #### U MICRO, ERUR #### [facility] [address] [address] [address] Manuel Sandhu BAR Negative Normal NEGATIVE [facility] Comment on above: Performed By: #### U MICRO, ERUR #### [facility] [address] [address] [address] Manuel Sandhu BUP Negative Normal NEGATIVE [facility] Comment on above: Performed By: #### U MICRO, ERUR #### [facility] [address] [address] [address] Manuel Sandhu BZO Negative Normal NEGATIVE [facility] Comment on above: Performed By: #### U MICRO, ERUR #### [facility] [address] [place] [address] Dr. Manuel Sandhu WISAM Negative Normal NEGATIVE [facility] Comment on above: Performed By: #### U MICRO, ERUR #### [facility] [address] [place] [address] Dr. Manuel Sandhu CUT-OFFS SEE BELOW Normal [facility] Comment on above: Result Comment: AMP (Amphetamine): [...] Performed By: #### U MICRO, ERUR #### [facility] [address] [place] [address] Dr. Manuel Sandhu DRUG CUT HEADER DRUG CLASS TEST SYST EM CUT-OFF CONCENTRATIONS ARE FOLLOWS: Normal [facility] Comment on above: Performed By: #### U MICRO, ERUR #### [facility] [address] [place] [address] Dr. Manuel Sandhu mAMP Negative Normal NEGATIVE [facility] Comment on above: Performed By: #### U MICRO, ERUR #### [facility] [address] [address] [address] Manuel Sandhu MTD Negative Normal NEGATIVE [facility] Comment on above: Performed By: #### U MICRO, ERUR #### [facility] [address] [address] [address] Manuel Sandhu OPI Negative Normal NEGATIVE [facility] Comment on above: Performed By: #### U MICRO, ERUR #### [facility] [address] [address] [address] Manuel Sandhu OXY Negative Normal NEGATIVE [facility] Comment on above: Performed By: #### U MICRO, ERUR #### [facility] [address] [address] [address] Manuel Sandhu PCP Negative Normal NEGATIVE [facility] Comment on above: Performed By: #### U MICRO, ERUR #### [facility] [address] [address] [address] Manuel Sandhu PPX Negative Normal NEGATIVE [facility] Comment on above: Performed By: #### U MICRO, ERUR #### [facility] [address] [address] [address] Manuel Sandhu TCA Negative Normal NEGATIVE [facility] Comment on above: Performed By: #### U MICRO, ERUR #### [facility] [address] [address] [address] Manuel Sandhu THC Negative Normal NEGATIVE [facility] Comment on above: Performed By: #### U MICRO, ERUR #### [facility] [address] [address] [address] Manuel Sandhu ER URINE PROFILEon 2 Bilirubin Ql (U) Negative Normal NEGATIVE [facility] Comment on above: Performed By: #### U MICRO, ERUR #### [facility] [address] [address] [address] Manuel Sandhu Clarity (U) CLEAR Normal CLEAR [facility] Comment on above: Performed By: #### U MICRO, ERUR #### [facility] [address] [address] [address] Manuel Sandhu Color (U) LT. YELLOW Normal YELLOW [facility] Comment on above: Performed By: #### U MICRO, ERUR #### [facility] [address] [address] [address] Manuel CUNHA A micrscopic examination will be performed if indicated. Normal [facility] Comment on above: Performed By: #### U MICRO, ERUR #### [facility] [address] [address] [address] Manuel Sandhu Glucose Ql (U) Negative Normal NEGATIVE [facility] Comment on above: Performed By: #### U MICRO, ERUR #### [facility] [address] [place] [address] Dr. Manuel Sandhu Hemoglobin Ql (U) Negative Normal NEGATIVE [facility] Comment on above: Performed By: #### U MICRO, ERUR #### [facility] [address] [place] [address] Dr. Manuel Sandhu Ketones Ql (U) Negative Normal NEGATIVE [facility] Comment on above: Performed By: #### U MICRO, ERUR #### [facility] [address] [place] [address] Dr. Manuel Sandhu LEUKOCYTES Negative Normal NEGATIVE [facility] Comment on above: Performed By: #### U MICRO, ERUR #### [facility] [address] [place] [address] Dr. Manuel Sandhu Nitrite Ql (U) Negative Normal NEGATIVE [facility] Comment on above: Performed By: #### U MICRO, ERUR #### [facility] [address] [address] [address] Manuel Sandhu pH (U) 5.5 [pH] Normal 5-9 [facility] Comment on above: Performed By: #### U MICRO, ERUR #### [facility] [address] [place] [address] Dr. Manuel Sandhu SPEC GRAVITY <=1.005 Abnormal 1.005-<=1.[address] [place] [address] Comment on above: Performed By: #### U MICRO, ERUR #### [facility] [address] [address] [address] Manuel Sandhu UA PROTEIN Negative Normal NEGATIVE/ TRACE [facility] Comment on above: Performed By: #### U MICRO, ERUR #### [facility] [address] [address] [address] Manuel Sandhu UR MICRO IND NOT INDICATED Normal [facility] Comment on above: Performed By: #### U MICRO, ERUR #### [facility] [address] [address] [address] Manuel Sandhu Urobilinogen Qn (U) 0.2 {Lucila'U}/dL Normal 0.2 - 1. 0 [facility] Comment on above: Performed By: #### U MICRO, ERUR #### [facility] [address] [address] [address] Manuel Sandhu ETHANOL (BLD ALC)on 01-31-20 22 ALC NOTE NOTE: 80 mg/dl is th e legal limit for a blood alcohol level Normal [facility] Comment on above: Performed By: #### I NFLUAB #### [facility] [address] [address] [address] Manuel Sandhu Ethanol [Mass/Vol] 47 mg/dL Normal [facility] Comment on above: Performed By: #### I NFLUAB #### [facility] [address] [address] [address] Manuel Sandhu PREG HCG QUALon 01-30-2022 , QUAL Negative Normal NEGATIVE [facility] Comment on above: Performed By: #### U MICRO, ERUR #### [facility] [address] [address] [address] Manuel Sandhu PROF 14(COMP METB)on 022 Albumin [Mass/Vol] 3.8 g/dL Normal 3.4-5.0 [facility] Comment on above: Performed By: #### I NFLUAB #### [facility] [address] [address] [address] Manuel Sandhu Albumin/Globulin [Mass ratio] 1.1 {ratio} Normal [facility] Comment on above: Performed By: #### I NFLUAB #### [facility] [address] [address] [address] Manuel Sandhu ALP [Catalytic activity/Vol] 88 U/L Normal 46-116 [facility] Comment on above: Performed By: #### I NFLUAB #### [facility] [address] [address] [address] Manuel Sandhu ALT [Catalytic activity/Vol] 30 U/L Normal 14-59 [facility] Comment on above: Performed By: #### I NFLUAB #### [facility] [address] [address] [address] Manuel Sandhu Anion gap [Moles/Vol] 17.3 mmol/L Normal [facility] Comment on above: Performed By: #### I NFLUAB #### [facility] [address] [address] [address] Manuel Sandhu AST [Catalytic activity/Vol] 17 U/L Normal 15-37 [facility] Comment on above: Performed By: #### I NFLUAB #### [facility] [address] [address] [address] Manuel Sandhu Bilirubin [Mass/Vol] 0.2 mg/dL Normal 0.2-1.0 [facility] Comment on above: Performed By: #### I NFLUAB #### [facility] [address] [address] [address] Manuel Sandhu Calcium [Mass/Vol] 8.9 mg/dL Normal 8.5-10.1 [facility] Comment on above: Performed By: #### I NFLUAB #### [facility] [address] [address] [address] Manuel Sandhu Chloride [Moles/Vol] 109 mmol/L Critically high 98-107 [facility] Comment on above: Performed By: #### I NFLUAB #### [facility] [address] [address] [address] Manuel Sandhu CO2 [Moles/Vol] 20.2 mmol/L Critically low 21.0-32.0 [facility] Comment on above: Performed By: #### I NFLUAB #### [facility] [address] [address] [address] Manuel Sandhu Creatinine [Mass/Vol] 0.69 mg/dL Normal 0.55-1.02 [facility] Comment on above: Performed By: #### I NFLUAB #### [facility] [address] [address] [address] Manuel Sandhu EGFR-AF BERMUDIAN >60 Normal >=60 [facility] Comment on above: Performed By: #### I NFLUAB #### [facility] [address] [address] [address] Manuel Sandhu EGFR-NON AF BERMUDIAN >60 Normal >=60 [facility] Comment on above: Performed By: #### I NFLUAB #### [facility] [address] [place] [address] Dr. Manuel Sandhu Globulin (S) [Mass/Vol] 3.6 g/dL Normal [facility] Comment on above: Performed By: #### I NFLUAB #### [facility] [address] [address] [address] Manuel Sandhu Glucose [Mass/Vol] 79 mg/dL Normal 74-106 [facility] Comment on above: Performed By: #### I NFLUAB #### [facility] [address] [address] [address] Manuel Sandhu Potassium [Moles/Vol] 3.5 mmol/L Normal 3.5-5.1 [facility] Comment on above: Performed By: #### I NFLUAB #### [facility] [address] [address] [address] Manuel Sandhu Protein [Mass/Vol] 7.4 g/dL Normal 6.4-8.2 [facility] Comment on above: Performed By: #### I NFLUAB #### [facility] [address] [address] [address] Manuel Sandhu Sodium [Moles/Vol] 143 mmol/L Normal 136-145 [facility] Comment on above: Performed By: #### I NFLUAB #### [facility] [address] [place] [address] Dr. Manuel Sandhu Urea nitrogen [Mass/Vol] 18.0 mg/dL Normal 7.0-18.0 [facility] Comment on above: Performed By: #### I NFLUAB #### [facility] [address] [place] [address] Dr. Manuel Sandhu Urea nitrogen/Creatinine [Mass ratio] 26.1 mg/mg Normal [facility] Comment on above: Performed By: #### I NFLUAB #### [facility] [address] [place] [address] Dr. Manuel Sandhu AMYLASEon 11-16-2021 Amylase [Catalytic activity/Vol] 60 U/L Normal 31-110 [facility] Comment on above: Performed By: #### C MP JENNIE, LIPA #### [facility] [address] [place] [address] Dr. Manuel Sandhu CBC AUTO DIFFon 11-16-2021 BASO # 0.1 103/ul Normal 0.0-0.1 [facility] Comment on above: Performed By: #### C MP, JENNIE, LIPA #### [facility] [address] [place] [address] Dr. Manuel Sandhu Basophils/100 WBC (Bld) 0.5 % Normal 0.2-2.0 [facility] Comment on above: Performed By: #### C MP, JENNIE, LIPA #### [facility] [address] [place] [address] Dr. Manuel Sandhu EO # 0.3 103/ul Normal 0.0-0.7 [facility] Comment on above: Performed By: #### C MP, JENNIE, LIPA #### [facility] [address] [place] [address] Dr. Manuel Sandhu Eosinophils/100 WBC (Bld) 3.1 % Normal 0.9-7.0 [facility] Comment on above: Performed By: #### C MP, JENNIE, LIPA #### [facility] [address] [place] [address] Dr. Manuel Sandhu Erythrocyte distribution width (RBC) [Ratio] 13.4 % Normal 11.0-15.0 [facility] Comment on above: Performed By: #### C JENNIE PATRICK LIPA #### [facility] [address] [place] [address] Dr. Manuel Sandhu Hematocrit (Bld) [Volume fraction] 39.0 % Normal 36.0-48.0 [facility] Comment on above: Performed By: #### C JENNIE PATRICK LIPA #### [facility] [address] [place] [address] Dr. Manuel Sandhu Hemoglobin (Bld) [Mass/Vol] 12.8 g/dL Normal 12.0-16.0 [facility] Comment on above: Performed By: #### C JENNIE PATRICK LIPA #### [facility] [address] [place] [address] Dr. Manuel Sandhu IG # 0.03 10e3/ul Normal 0.00-0.03 [facility] Comment on above: Performed By: #### C JENNIE PATRICK LIPA #### [facility] [address] [place] [address] Dr. Manuel Sandhu IG % 0.3 % Normal 0.0-0.5 [facility] Comment on above: Performed By: #### C JENNIE PATRICK LIPA #### [facility] [address] [place] [address] Dr. Manuel Sandhu LYMPH # 2.8 103/ul Normal 1.2-3.8 [facility] Comment on above: Performed By: #### C JENNIE PATRICK, LIPA #### [facility] [address] [place] [address] Dr. Manuel Sandhu Lymphocytes/100 WBC (Bld) 29.9 % Normal 20.5-60.0 [facility] Comment on above: Performed By: #### C CELINA JENNIE, LIPA #### [facility] [address] [place] [address] Dr. Manuel Sandhu MANUAL DIFF REQ NO Normal [facility] Comment on above: Performed By: #### C JENNIE PATRICK, LIPA #### [facility] [address] [place] [address] Dr. Manuel Sandhu MCH (RBC) [Entitic mass] 32.2 pg Normal 26.7-34.0 [facility] Comment on above: Performed By: #### C MP, JENNIE, LIPA #### [facility] [address] [place] [address] Dr. Manuel Sandhu MCHC (RBC) [Mass/Vol] 32.8 g/dL Normal 29.9-35.2 [facility] Comment on above: Performed By: #### C MP, JENNIE, LIPA #### [facility] [address] [place] [address] Dr. Manuel Sandhu MCV (RBC) [Entitic vol] 98.0 fL Normal 81.0-99.0 [facility] Comment on above: Performed By: #### C MP, JENNIE, LIPA #### [facility] [address] [place] [address] Dr. Manuel Sandhu MONO # 0.7 103/ul Normal 0.3-0.8 [facility] Comment on above: Performed By: #### C MP JENNIE, LIPA #### [facility] [address] [place] [address] Dr. Manuel Sandhu Monocytes/100 WBC (Bld) 7.7 % Normal 1.7-12.0 [facility] Comment on above: Performed By: #### C MP, JENNIE, LIPA #### [facility] [address] [place] [address] Dr. Manuel Sandhu NEUT # 5.5 103/ul Normal 1.4-6.5 [facility] Comment on above: Performed By: #### C MP, JENNIE, LIPA #### [facility] [address] [place] [address] Dr. Manuel Sandhu Neutrophils/100 WBC (Bld) 58.5 % Normal 43.0-75.0 [facility] Comment on above: Performed By: #### C MP, JENNIE, LIPA #### [facility] [address] [place] [address] Dr. Manuel Sandhu Platelet mean volume (Bld) [Entitic vol] 11.7 fL Normal 9.5-13.5 [facility] Comment on above: Performed By: #### C JENNIE PATRICK LIPA #### [facility] [address] [address] [address] Manuel Sandhu PLT 301 103/ul Normal 150-450 [facility] Comment on above: Performed By: #### C JENNIE PATRICK LIPA #### [facility] [address] [address] [address] Manuel Sandhu RBC 3.98 106/ul Critically low 4.20-5.40 [facility] Comment on above: Performed By: #### C JENNIE PATRICK LIPA #### [facility] [address] [address] [address] Manuel Sandhu WBC 9.3 103/ul Normal 4.0-11.0 [facility] Comment on above: Performed By: #### C JENNIE PATRICK LIPA #### [facility] [address] [address] [address] ABD/PELVIS WO CONon [...] HARMONY HARRELL Date: 2021-11-16 19:55 Normal [facility] ER URINE PROFILEon 2 Bilirubin Ql (U) Negative Normal NEGATIVE [facility] Comment on above: Performed By: #### C JENNIE PATRICK LIPA #### [facility] [address] [address] [address] Manuel Sandhu Clarity (U) CLEAR Normal CLEAR [facility] Comment on above: Performed By: #### C JENNIE PATRICK LIPA #### [facility] [address] [place] [address] Dr. Manuel Sandhu Color (U) LT. YELLOW Normal YELLOW [facility] Comment on above: Performed By: #### C MP, JENNIE, LIPA #### [facility] [address] [place] [address] Dr. Manuel CUNHA A micrscopic examination will be performed if indicated. Normal [facility] Comment on above: Performed By: #### C MP, JENNIE, LIPA #### [facility] [address] [address] [address] Manuel Sandhu Glucose Ql (U) Negative Normal NEGATIVE [facility] Comment on above: Performed By: #### C MP, JENNIE, LIPA #### [facility] [address] [place] [address] Dr. Manuel Sandhu Hemoglobin Ql (U) Negative Normal NEGATIVE [facility] Comment on above: Performed By: #### C MP, JENNIE, LIPA #### [facility] [address] [place] [address] Dr. Manuel Sanhdu Ketones Ql (U) Negative Normal NEGATIVE [facility] Comment on above: Performed By: #### C MP, JENNIE, LIPA #### [facility] [address] [place] [address] Dr. Manuel Sandhu LEUKOCYTES Negative Normal NEGATIVE [facility] Comment on above: Performed By: #### C MP, JENNIE, LIPA #### [facility] [address] [place] [address] Dr. Manuel Sandhu Nitrite Ql (U) Negative Normal NEGATIVE [facility] Comment on above: Performed By: #### C MP, JENNIE, LIPA #### [facility] [address] [place] [address] Dr. Manuel Sandhu pH (U) 7.0 [pH] Normal 5-9 [facility] Comment on above: Performed By: #### C MP, JENNIE, LIPA #### [facility] [address] [place] [address] Dr. Manuel Sandhu SPEC GRAVITY <=1.005 Abnormal 1.005-<=1.02 5 [facility] Comment on above: Performed By: #### C MP, JENNIE, LIPA #### [facility] [address] [place] [address] Dr. Manuel Sandhu UA PROTEIN Negative Normal NEGATIVE/ TRACE [facility] Comment on above: Performed By: #### C MP, JENNIE, LIPA #### [facility] [address] [place] [address] Dr. Manuel Sandhu UR MICRO IND NOT INDICATED Normal [facility] Comment on above: Performed By: #### C MP, JENNIE, LIPA #### [facility] [address] [place] [address] Dr. Manuel Sandhu Urobilinogen Qn (U) 0.2 {Lucila'U}/dL Normal 0.2 - 1. 0 [facility] Comment on above: Performed By: #### C CELINA JENNIE, LIPA #### [facility] [address] [place] [address] Dr. Manuel Sandhu LIPASEon 11-16-2021 Lipase [Catalytic activity/Vol] 78.0 U/L Normal 23.0-300.0 [facility] Comment on above: Performed By: #### C CELINA JENNIE, LIPA #### [facility] [address] [place] [address] Dr. Manuel Sandhu URon 11-16-2021 , QUAL Negative Normal NEGATIVE [facility] Comment on above: Performed By: #### C MP, JENNIE, LIPA #### [facility] [address] [place] [address] Dr. Manuel Sandhu PROF 14(COMP METB)on 022 Albumin [Mass/Vol] 4.1 g/dL Normal 3.5-5.0 [facility] Comment on above: Performed By: #### C MP, JENNIE, LIPA #### [facility] [address] [place] [address] Dr. Manuel Sandhu Albumin/Globulin [Mass ratio] 1.1 {ratio} Normal [facility] Comment on above: Performed By: #### C MP, JENNIE, LIPA #### [facility] [address] [place] [address] Dr. Manuel Sandhu ALP [Catalytic activity/Vol] 102 U/L Normal 38-126 [facility] Comment on above: Performed By: #### C MP, JENNIE, LIPA #### [facility] [address] [address] [address] Manuel Sandhu ALT [Catalytic activity/Vol] 39 U/L Normal 9-52 [facility] Comment on above: Performed By: #### C MP, JENNIE, LIPA #### [facility] [address] [place] [address] Dr. Manuel Sandhu Anion gap [Moles/Vol] 11.5 mmol/L Normal [facility] Comment on above: Performed By: #### C MP, JENNIE, LIPA #### [facility] [address] [place] [address] Dr. Manuel Sandhu AST [Catalytic activity/Vol] 28 U/L Normal 14-36 [facility] Comment on above: Performed By: #### C MP, JENNIE, LIPA #### [facility] [address] [place] [address] Dr. Manule Sandhu Bilirubin [Mass/Vol] 0.2 mg/dL Normal 0.2-1.3 [facility] Comment on above: Performed By: #### C MP, JENNIE, LIPA #### [facility] [address] [place] [address] Dr. Manuel Sandhu Calcium [Mass/Vol] 9.1 mg/dL Normal 8.4-10.2 [facility] Comment on above: Performed By: #### C MP, JENNIE, LIPA #### [facility] [address] [place] [address] Dr. Manuel Sandhu Chloride [Moles/Vol] 105 mmol/L Normal 98-107 [facility] Comment on above: Performed By: #### C MP, JENNIE, LIPA #### [facility] [address] [place] [address] Dr. Manuel Sandhu CO2 [Moles/Vol] 25.0 mmol/L Normal 22.0-30.0 [facility] Comment on above: Performed By: #### C MP, JENNIE, LIPA #### [facility] [address] [place] [address] Dr. Manuel Sandhu Creatinine [Mass/Vol] 0.77 mg/dL Normal 0.52-1.04 [facility] Comment on above: Performed By: #### C JENNIE PATRICK LIPA #### [facility] [address] [address] [address] Manuel Sandhu EGFR-AF BERMUDIAN >60 Normal >=60 [facility] Comment on above: Performed By: #### C JENNIE PATRICK LIPA #### [facility] [address] [address] [address] Manuel Sandhu EGFR-NON AF BERMUDIAN >60 Normal >=60 [facility] Comment on above: Performed By: #### C JENNIE PATRICK LIPA #### [facility] [address] [place] [address] Dr. Manuel Sandhu Globulin (S) [Mass/Vol] 3.8 g/dL Normal [facility] Comment on above: Performed By: #### C JENNIE PATRICK LIPA #### [facility] [address] [address] [address] Manuel Sandhu Glucose [Mass/Vol] 85 mg/dL Normal 74-106 [facility] Comment on above: Performed By: #### C JENNIE PATRICK LIPA #### [facility] [address] [address] [address] Manuel Sandhu Potassium [Moles/Vol] 3.5 mmol/L Normal 3.4-5.0 [facility] Comment on above: Performed By: #### C JENNIE PATRICK, LIPA #### [facility] [address] [address] [address] Manuel Sandhu Protein [Mass/Vol] 7.9 g/dL Normal 6.1-8.2 [facility] Comment on above: Performed By: #### C JENNIE PATRICK LIPA #### [facility] [address] [place] [address] Dr. Manuel Sandhu Sodium [Moles/Vol] 138 mmol/L Normal 137-145 [facility] Comment on above: Performed By: #### C JENNIE PATRICK, LIPA #### [facility] [address] [place], [place] [address] Dr. Manuel Sandhu Urea nitrogen [Mass/Vol] 18.0 mg/dL Critically high 7.0-17.0 [facility] Comment on above: Performed By: #### C JENNIE PATRICK LIPA #### [facility] [address], [place] [address] Dr. Manuel Sandhu Urea nitrogen/Creatinine [Mass ratio] 23.4 mg/mg Normal [facility] Comment on above: Performed By: #### C JENNIE PATRICK LIPA #### [facility] [address], [place] [address] ABDOMEN PELVIS W IV CONTR AST [...] in the pelvis, which could be physiologic. [employer] Work Phone: EXAMINATION: CT OF T HE [...] grade 1 anterolisthesis at L5-S1 is unchanged. [employer] Work Phone: Dario, pn Incoming Radiant Results From [employer]/Cause[employer]it - 02/04/2021 4:32 PM EDT EXAMINATION: CT [...] in the pelvis, which could be physiologic. [employer] Phone: SendTask Phone: Basic Metabolic Panel w/ Ref brannon to MGOrdered By: Ruiz Joel on 02-01-2021 Anion gap [Moles/Vol] 15 mmol/L 9 - 17 mmol/L [employer] Phone: Calcium [Mass/Vol] 8.5 mg/dL Low 8.6 - 10. 4 mg/dL [employer] Phone: Chloride [Moles/Vol] 107 mmol/L 98 - 10 7 mmol/L [employer] Phone: CO2 [Moles/Vol] 16 mmol/L Low 20 - 31 mmol/L [employer] Phone: Creatinine [Mass/Vol] 0.36 mg/dL Low 0.50 - 0.90 mg/dL [employer] Phone: GFR >60 >60 mL/min [employer] Phone: GFR Non- >60 >60 mL/min [employer] Phone: GFR/1.73 sq M.predicted MDRD (S/P/Bld) [Vol rate/Area] [employer] Phone: Comment on above: Average GFR for 30-3 9 years old: 107 mL/min/1.73sq m Chronic Kidney Disease: <60 mL/min/1.73sq m Kidney failure: <15 mL/min/1.73sq m eGFR calculated using average adult body mass. Additional eGFR calculator available at: http://www.[employer]/multiple_crcl_2012.htm GFR/1.73 sq M.predicted MDRD (S/P/Bld) [Vol rate/Area] NOT REPORTED [employer] Phone: Glucose [Mass/Vol] 79 mg/dL 70 - 99 mg/dL [employer] Phone: Interpretation and review of laboratory results Abnormal [employer] Phone: Potassium [Moles/Vol] 3.7 mmol/L 3.7 - 5.3 mmol/L [employer] Phone: Sodium [Moles/Vol] 138 mmol/L 135 - 144 mmol/L [employer] Work Phone: Urea nitrogen (BldV) [Mass/Vol] 2 mg/dL Low 6 - 20 mg/dL [employer] Work Phone: Urea nitrogen/Creatinine (Bld) [Mass ratio] NOT REPORTED [employer] Work Phone: [employer] Work Phone: CBC WITH AUTO DIFFERENTIALOr dered By: Ruiz Joel on 02-01-2021 Absolute Eos # 0.28 [employer] [facility] Work Phone: Absolute Immature Granulocyte 0.06 [employer] Work Phone: Absolute Lymph # 1.62 [employer] [facility] Work Phone: Absolute Barnes # 1.46 High [employer] [facility] Work Phone: Basophils (Bld) [#/Vol] 0.04 10*3/uL [employer] Work Phone: Basophils/100 WBC (Bld) 0 % 0 - 2 % [employer] Work Phone: Differential Type NOT REPORTED [employer] Work Phone: Eosinophils/100 WBC (Bld) 3 % 1 - 4 % [employer] Work Phone: Hematocrit (Bld) [Volume fraction] 33.7 % Low 36.3 - 47.1 % [employer] Work Phone: Hemoglobin.gastrointes tinal spec 1 Ql (Stl) 10.3 g/dL Low 11.9 - 15.1 g/dL [employer] Work Phone: Immature granulocytes/100 WBC (Bld) 1 % High 0 [employer] Work Phone: Interpretation and review of laboratory results Abnormal [employer] Phone: Lymphocytes/100 WBC (Bld) 14 % Low 24 - 43 % [employer] Work Phone: MCH (RBC) [Entitic mass] 29.9 pg 25.2 - 33.5 pg [employer] Work Phone: MCHC (RBC) [Mass/Vol] 30.6 g/dL 28.4 - 34.8 g/dL [employer] Phone: MCV (RBC) [Entitic vol] 98.0 fL 82.6 - 102.9 fL [employer] Work Phone: Monocytes/100 WBC (Bld) 13 % High 3 - 12 % [employer] Work Phone: NRBC Automated 0.0 0.0 per 100 WBC [employer] Phone: Platelet distribution width (Bld) [Ratio] 13.4 % 11.8 - 14.4 % [employer] Phone: Platelet Estimate NOT REPORTED [employer] Work Phone: Platelet mean volume (Bld) [Entitic vol] 11.6 fL 8.1 - 13.5 fL [employer] Phone: Platelets (Bld) [#/Vol] 392 10*3/uL [employer] Phone: RBC (Bld) [#/Vol] 3.44 10*6/uL Low 3.95 - 5.1 1 m/uL [employer] Work Phone: RBC (Bld) [#/Vol] NOT REPORTED [employer] Phone: Segmented neutrophils/100 WBC (Bld) 69 % High 36 - 65 % [employer] Work Phone: Segs Absolute 7[employer] Work Phone: WBC (Bld) [#/Vol] 11.3 10*3/uL [employer] Work Phone: WBC (Bld) [#/Vol] NOT REPORTED [employer] Work Phone: [employer] Phone: Basic Metabolic Panel w/ Ref brannon to MGOrdered By: Nicolasa Le on 01-31-2021 Anion gap [Moles/Vol] 17 mmol/L 9 - 17 mmol/L [employer] Phone: Calcium [Mass/Vol] 8.7 mg/dL 8.6 - 10. 4 mg/dL [employer] Phone: Chloride [Moles/Vol] 105 mmol/L 98 - 10 7 mmol/L [employer] Phone: CO2 [Moles/Vol] 15 mmol/L Low 20 - 31 mmol/L [employer] Phone: Creatinine [Mass/Vol] 0.36 mg/dL Low 0.50 - 0.90 mg/dL [employer] Phone: GFR >60 >60 mL/min [employer] Phone: GFR Non- >60 >60 mL/min [employer] Phone: GFR/1.73 sq M.predicted MDRD (S/P/Bld) [Vol rate/Area] [employer] Phone: Comment on above: Average GFR for 30-3 9 years old: 107 mL/min/1.73sq m Chronic Kidney Disease: <60 mL/min/1.73sq m Kidney failure: <15 mL/min/1.73sq m eGFR calculated using average adult body mass. Additional eGFR calculator available at: http://www.[employer]/multiple_crcl_2012.htm GFR/1.73 sq M.predicted MDRD (S/P/Bld) [Vol rate/Area] NOT REPORTED [employer] Phone: Glucose [Mass/Vol] 78 mg/dL 70 - 99 mg/dL [employer] Phone: Interpretation and review of laboratory results Abnormal [employer] Phone: Potassium [Moles/Vol] 3.8 mmol/L 3.7 - 5.3 mmol/L [employer] Work Phone: Sodium [Moles/Vol] 137 mmol/L 135 - 144 mmol/L [employer] Work Phone: Urea nitrogen (BldV) [Mass/Vol] 3 mg/dL Low 6 - 20 mg/dL [employer] Work Phone: Urea nitrogen/Creatinine (Bld) [Mass ratio] NOT REPORTED [employer] Work Phone: [employer] Work Phone: CBC auto differentialOrdered By: Nicolasa Le on 01-31-2021 Absolute Eos # 0.30 [employer] [facility] Work Phone: Absolute Immature Granulocyte 0.15 [employer] Work Phone: Absolute Lymph # 2.10 [employer] [facility] Work Phone: Absolute Barnes # 2.25 High [employer] [facility] Work Phone: Basophils (Bld) [#/Vol] 0.00 10*3/uL [employer] Work Phone: Basophils/100 WBC (Bld) 0 % 0 - 2 % [employer] Work Phone: Differential Type NOT REPORTED [employer] Work Phone: Eosinophils/100 WBC (Bld) 2 % 1 - 4 % [employer] Work Phone: Hematocrit (Bld) [Volume fraction] 35.7 % Low 36.3 - 47.1 % [employer] Work Phone: Hemoglobin.gastrointes tinal spec 1 Ql (Stl) 10.8 g/dL Low 11.9 - 15.1 g/dL [employer] Work Phone: Immature granulocytes/100 WBC (Bld) 1 % High 0 [employer] Work Phone: Interpretation and review of laboratory results Abnormal [employer] Phone: Lymphocytes/100 WBC (Bld) 14 % Low 24 - 43 % [employer] Phone: MCH (RBC) [Entitic mass] 29.9 pg 25.2 - 33.5 pg [employer] Phone: MCHC (RBC) [Mass/Vol] 30.3 g/dL 28.4 - 34.8 g/dL [employer] Phone: MCV (RBC) [Entitic vol] 98.9 fL 82.6 - 102.9 fL [employer] Phone: Monocytes/100 WBC (Bld) 15 % High 3 - 12 % [employer] Phone: Morphology Celso (Bld) [Interp] Normal [employer] Phone: NRBC Automated 0.0 0.0 per 100 WBC [employer] Phone: Platelet distribution width (Bld) [Ratio] 13.5 % 11.8 - 14.4 % [employer] Phone: Platelet Estimate NOT REPORTED [employer] Phone: Platelet mean volume (Bld) [Entitic vol] 11.6 fL 8.1 - 13.5 fL [employer] Phone: Platelets (Bld) [#/Vol] 375 10*3/uL [employer] Phone: RBC (Bld) [#/Vol] 3.61 10*6/uL Low 3.95 - 5.1 1 m/uL [employer] Phone: RBC (Bld) [#/Vol] NOT REPORTED [employer] Phone: Segmented neutrophils/100 WBC (Bld) 68 % High 36 - 65 % [employer] Phone: Segs Absolute 10.20 [facility] Work Phone: WBC (Bld) [#/Vol] 15.0 10*3/uL High [employer] Work Phone: WBC (Bld) [#/Vol] NOT REPORTED [employer] Work Phone: [employer] Work Phone: CBC Auto DifferentialOrdered By: David Nash on 01-30-2021 [employer]os # 0.21 [employer] [facility] Work Phone: Absolute Immature Granulocyte 0.04 [employer] Work Phone: Absolute Lymph # 1.88 [employer] [facility] Work Phone: Absolute Barnes # 1.43 High [employer] Work Phone: Basophils (Bld) [#/Vol] 0.04 10*3/uL [employer] Work Phone: Basophils/100 WBC (Bld) 0 % 0 - 2 % [employer] Work Phone: Differential Type NOT REPORTED [employer] Work Phone: Eosinophils/100 WBC (Bld) 2 % 1 - 4 % [employer] Work Phone: Hematocrit (Bld) [Volume fraction] 36.2 % Low 36.3 - 47.1 % [employer] Work Phone: Hemoglobin.gastrointes tinal spec 1 Ql (Stl) 11.7 g/dL Low 11.9 - 15.1 g/dL [employer] Work Phone: Immature granulocytes/100 WBC (Bld) 0 % 0 [employer] Work Phone: Interpretation and review of laboratory results Abnormal [employer] Work Phone: Lymphocytes/100 WBC (Bld) 15 % Low 24 - 43 % [employer] Work Phone: MCH (RBC) [Entitic mass] 30.3 pg 25.2 - 33.5 pg [employer] Work Phone: MCHC (RBC) [Mass/Vol] 32.3 g/dL 28.4 - 34.8 g/dL [employer] Work Phone: MCV (RBC) [Entitic vol] 93.8 fL 82.6 - 102.9 fL [employer] Work Phone: Monocytes/100 WBC (Bld) 12 % 3 - 12 % [employer] Work Phone: NRBC Automated 0.0 0.0 per 100 WBC [employer] Phone: Platelet distribution width (Bld) [Ratio] 13.2 % 11.8 - 14.4 % [employer] Phone: Platelet Estimate NOT REPORTED [employer] Phone: Platelet mean volume (Bld) [Entitic vol] 11.6 fL 8.1 - 13.5 fL [employer] Work Phone: Platelets (Bld) [#/Vol] 414 10*3/uL [employer] Phone: RBC (Bld) [#/Vol] 3.86 10*6/uL Low 3.95 - 5.1 1 m/uL [employer] Work Phone: RBC (Bld) [#/Vol] NOT REPORTED [employer] Work Phone: Segmented neutrophils/100 WBC (Bld) 71 % High 36 - 65 % [employer] Work Phone: Segs Absolute 8.75 High [employer] Work Phone: WBC (Bld) [#/Vol] 12.4 10*3/uL High [employer] Work Phone: WBC (Bld) [#/Vol] NOT REPORTED [employer] Work Phone: [employer] Work Phone: CT ABDOMEN PELVIS W IV [...] anterolisthesis and marked decrease in disc height. [employer] Phone: EXAMINATION: CT OF T HE ABDOMEN [...] height was noted at the L5-S1 disc. [employer] Phone: Dario, Mhpn Incoming Radiant Results From [employer]/Pacs - 01/30/2021 12:20 PM EDT EXAMINATION: CT [...] anterolisthesis and marked decrease in disc height. [employer] Phone: Send[employer] Phone: Comprehensive Metabolic Pane l w/ Reflex to MGOrdered By: David Nash on 01-30-2021 Albumin [Mass/Vol] 3.6 g/dL 3.5 - 5.2 g/dL [employer] Phone: Albumin/Globulin [Mass ratio] 1.0 {ratio} [employer] Phone: ALP (Bld) [Catalytic activity/Vol] 107 U/L High 35 - 104 U/L [employer] Phone: ALT [Catalytic activity/Vol] 33 U/L 5 - 33 U/L [employer] Phone: Anion gap [Moles/Vol] 17 mmol/L 9 - 17 mmol/L [employer] Phone: AST [Catalytic activity/Vol] 26 U/L <32 [employer] Phone: Bilirubin [Mass/Vol] 0.25 mg/dL Low 0.3 - 1 .2 mg/dL [employer] Phone: Calcium [Mass/Vol] 9.5 mg/dL 8.6 - 10. 4 mg/dL [employer] Phone: Chloride [Moles/Vol] 104 mmol/L 98 - 10 7 mmol/L [employer] Phone: CO2 [Moles/Vol] 19 mmol/L Low 20 - 31 mmol/L [employer] Phone: Creatinine [Mass/Vol] 0.47 mg/dL Low 0.50 - 0.90 mg/dL [employer] Phone: Free PSA/Total PSA [Mass fraction] 7.3 g/dL 6.4 - 8.3 g/dL [employer] Phone: GFR >60 >60 mL/min [employer] Phone: GFR Non- >60 >60 mL/min [employer] Phone: Glucose [Mass/Vol] 79 mg/dL 70 - 99 mg/dL [employer] Phone: Interpretation and review of laboratory results Abnormal [employer] Phone: Potassium [Moles/Vol] 3.8 mmol/L 3.7 - 5.3 mmol/L [employer] Phone: Sodium [Moles/Vol] 140 mmol/L 135 - 144 mmol/L [employer] Phone: Urea nitrogen (BldV) [Mass/Vol] 5 mg/dL Low 6 - 20 mg/dL [employer] Phone: Urea nitrogen/Creatinine (Bld) [Mass ratio] 11 [employer] Phone: HCG Qualitative, SerumOrdere d By: Noreen Mckeon on 01-30-2021 hCG Qual Negative NEGATIVE [employer] Phone: Comment on above: Specimens with hCG l evels near the threshold of the test (25 mIU/mL) may give a negative or indeterminate result. In such cases, another test should be performed with a new specimen in 48-72 hours. If early is suspected clinically in this setting, correlation with quantitative serum b-hCG level is suggested. [employer] has confirmed the use of plasma for this test. This has not been cleared or approved by the U.S. Food and Drug Administration. The FDA has determined that such clearance is not necessary. [employer] Phone: Laboratory - Chemistry and C hemistry - challengeOrdered By: David Nash on 01-30-2021 GFR/1.73 sq M.predicted MDRD (S/P/Bld) [Vol rate/Area] [employer] Phone: Comment on above: Average GFR for 30-3 9 years old: 107 mL/min/1.73sq m Chronic Kidney Disease: <60 mL/min/1.73sq m Kidney failure: <15 mL/min/1.73sq m eGFR calculated using average adult body mass. Additional eGFR calculator available at: http://www.[employer]/multiple_crcl_2012.htm Stage 1: Some kidney damage normal GFR Stage 2: Mild kidney damage GFR 60-89 Stage 3: Moderate kidney damage GFR 30-59 Stage 4: Severe kidney damage GFR 15-29 Stage 5: Severe kidney damage GFR <15 ESRD - chronic treatment by dialysis or transplant Lactic AcidOrdered By: Beatriz Nash on 01-30-2021 Lactate [Moles/Vol] 0.6 mmol/L 0.5 - 2. 2 mmol/L [facility] [employer] Work Phone: [facility] [employer] Work Phone: LipaseOrdered By: David dalton on 01-30-2021 Lipase [Catalytic activity/Vol] 30 U/L 13 - 60 U/L [facility] [employer] Work Phone: Microscopic UrinalysisOrdere d By: David Nash on 01-30-2021 - [facility] [employer] Work Phone: Amorphous, UA NOT REPORTED None [facility] Work Phone: Bacteria, UA TRACE Abnormal None [facility] Work Phone: Casts UA NOT REPORTED /LPF [facility] [employer] Work Phone: Crystals, UA NOT REPORTED None /HPF [facility] Work Phone: Epithelial Cells UA 2 TO 5 [facility] [employer] Work Phone: Interpretation and review of laboratory results Abnormal [facility] [employer] Work Phone: Mucus, UA NOT REPORTED None [facility] [employer] Work Phone: Other Observations UA NOT REPORTED NOT REQ. [facility] [employer] Work Phone: RBC, UA 0 TO 2 [facility] [employer] Work Phone: Renal Epithelial, UA NOT REPORTED 0 /HPF [facility] Work Phone: Trichomonas, UA NOT REPORTED None [facility] Work Phone: WBC, UA 2 TO 5 [facility] Work Phone: Yeast, UA NOT REPORTED None [facility] Work Phone: [facility] [employer] Work Phone: No Panel InformationOrdered By: David Nash on 01-30-2021 [facility] [employer] Work Phone: Protime-INROrdered By: Linda Mckeon on 01-30-2021 INR Coag (Bld) [Relative time] 1.1 {INR} [facility] [employer] Work Phone: Comment on above: Therapeutic Range: Moderate Anticoagulant Intensity: INR = 2.0-3.0 High Anticoagulant Intensity: INR = 2.5-3.5 PT Coag (PPP) [Time] 11.4 s [facility] [employer] Work Phone: [facility] [employer] Work Phone: Urinalysis, reflex to micros copicOrdered By: David Nash on 01-30-2021 Bilirubin Urine SMALL Abnormal NEGATIVE [facility] Work Phone: Color, UA YELLOW YELLOW [facility] Work Phone: Glucose, Ur Negative NEGATIVE [facility] Work Phone: Interpretation and review of laboratory results Abnormal [facility] Work Phone: Ketones Ql (U) 4+ Abnormal NEGATIVE [facility] Work Phone: Leukocyte esterase Test strip Ql (U) Negative NEGATIVE [facility] Work Phone: Nitrite, Urine Negative NEGATIVE [facility] Work Phone: pH, UA 5.5 [facility] [employer] Work Phone: Protein, UA Negative NEGATIVE [facility] Work Phone: Specific [place], UA <1.005 Low [employer] Phone: Turbidity UA CLEAR CLEAR [facility] Work Phone: Urinalysis Comments NOT REPORTED [facility] [employer] Work Phone: Urine Hgb Negative NEGATIVE [facility] Phone: Urobilinogen, Urine Normal Normal [facility] [employer] Phone: [facility] Work Phone: Basic Metabolic PanelOrdered By: Gamaliel Vickers on 01-08-2021 Anion gap [Moles/Vol] 11 mmol/L 9 - 17 mmol/L [employer] Phone: Calcium [Mass/Vol] 9.1 mg/dL 8.6 - 10. 4 mg/dL [facility] [employer] Phone: Chloride [Moles/Vol] 105 mmol/L 98 - 10 7 mmol/L [facility] [employer] Phone: CO2 [Moles/Vol] 23 mmol/L 20 - 31 mmol/L [facility] [employer] Phone: Creatinine [Mass/Vol] 0.57 mg/dL 0.50 - 0.90 mg/dL [employer] Phone: GFR >60 >60 mL/min [employer] Phone: GFR Non- >60 >60 mL/min [facility] Phone: GFR/1.73 sq M.predicted MDRD (S/P/Bld) [Vol rate/Area] [facility] [employer] Phone: Comment on above: Average GFR for 30-3 9 years old: 107 mL/min/1.73sq m Chronic Kidney Disease: <60 mL/min/1.73sq m Kidney failure: <15 mL/min/1.73sq m eGFR calculated using average adult body mass. Additional eGFR calculator available at: http://www.[employer]/multiple_crcl_2012.htm GFR/1.73 sq M.predicted MDRD (S/P/Bld) [Vol rate/Area] NOT REPORTED [employer] Phone: Glucose [Mass/Vol] 106 mg/dL High 70 - 99 mg/dL [employer] Phone: Interpretation and review of laboratory results Abnormal [employer] Phone: Potassium [Moles/Vol] 3.7 mmol/L 3.7 - 5.3 mmol/L [employer] Phone: Sodium [Moles/Vol] 139 mmol/L 135 - 144 mmol/L [employer] Phone: Urea nitrogen (BldV) [Mass/Vol] 7 mg/dL 6 - 20 mg/dL [employer] Phone: Urea nitrogen/Creatinine (Bld) [Mass ratio] NOT REPORTED [employer] Phone: CBCOrdered By: Gamaliel castillo on 01-08-2021 Hematocrit (Bld) [Volume fraction] 38.0 % 36.3 - 47.1 % [employer] Phone: Hemoglobin.gastrointes tinal spec 1 Ql (Stl) 12.2 g/dL 11.9 - 15.1 g/dL [employer] Phone: Interpretation and review of laboratory results Abnormal [employer] Phone: MCH (RBC) [Entitic mass] 30.4 pg 25.2 - 33.5 pg [employer] Phone: MCHC (RBC) [Mass/Vol] 32.1 g/dL 28.4 - 34.8 g/dL [employer] Phone: MCV (RBC) [Entitic vol] 94.8 fL 82.6 - 102.9 fL [employer] Phone: NRBC Automated 0.0 0.0 per 100 WBC [employer] Phone: Platelet distribution width (Bld) [Ratio] 13.5 % 11.8 - 14.4 % [employer] Phone: Platelet mean volume (Bld) [Entitic vol] 11.4 fL 8.1 - 13.5 fL [employer] Phone: Platelets (Bld) [#/Vol] 304 10*3/uL [employer] Phone: RBC (Bld) [#/Vol] 4.01 10*6/uL 3.95 - 5.1 1 m/uL [employer] Phone: WBC (Bld) [#/Vol] 18.0 10*3/uL High [employer] Phone: FL ESOPHAGRAMOrdered By: Yadi Vickers on 01-08-2021 No evidence of postoperative leak. [employer] Phone: EXAMINATION: SINGLE CONTRAST ESOPHAGRAM 01/08/2021 HISTORY: [...] KUB/radiographs to assess progression as clinically warranted. [employer] Phone: Dario, [facility] Incoming Radiant Results From [employer] - 01/08/2021 12:29 PM EDT EXAMINATION: SINGLE [...] warranted. IMPRESSION: No evidence of postoperative leak. [employer] Phone: Basic Metabolic PanelOrdered By: Gamaliel Vickers on 01-07-2021 Anion gap [Moles/Vol] 10 mmol/L 9 - 17 mmol/L [employer] Phone: Calcium [Mass/Vol] 8.8 mg/dL 8.6 - 10. 4 mg/dL [employer] Phone: Chloride [Moles/Vol] 105 mmol/L 98 - 10 7 mmol/L [employer] Phone: CO2 [Moles/Vol] 20 mmol/L 20 - 31 mmol/L [employer] Phone: Creatinine [Mass/Vol] 0.68 mg/dL 0.50 - 0.90 mg/dL [employer] Phone: GFR >60 >60 mL/min [employer] Phone: GFR Non- >60 >60 mL/min [employer] Phone: GFR/1.73 sq M.predicted MDRD (S/P/Bld) [Vol rate/Area] [employer] Phone: Comment on above: Average GFR for 30-3 9 years old: 107 mL/min/1.73sq m Chronic Kidney Disease: <60 mL/min/1.73sq m Kidney failure: <15 mL/min/1.73sq m eGFR calculated using average adult body mass. Additional eGFR calculator available at: http://www.[employer]/multiple_crcl_2012.htm GFR/1.73 sq M.predicted MDRD (S/P/Bld) [Vol rate/Area] NOT REPORTED [employer] Phone: Glucose [Mass/Vol] 215 mg/dL High 70 - 99 mg/dL [employer] Phone: Interpretation and review of laboratory results Abnormal [employer] Phone: Potassium [Moles/Vol] 4.2 mmol/L 3.7 - 5.3 mmol/L [employer] Phone: Sodium [Moles/Vol] 135 mmol/L 135 - 144 mmol/L [employer] Phone: Urea nitrogen (BldV) [Mass/Vol] 14 mg/dL 6 - 20 mg/dL [employer] Phone: Urea nitrogen/Creatinine (Bld) [Mass ratio] NOT REPORTED [employer] Phone: CBC without DiffOrdered By: Gamaliel Vickers on 01-07-2021 Hematocrit (Bld) [Volume fraction] 38.3 % 36.3 - 47.1 % [employer] Phone: Hemoglobin.gastrointes tinal spec 1 Ql (Stl) 12.5 g/dL 11.9 - 15.1 g/dL [employer] Phone: Interpretation and review of laboratory results Abnormal [employer] Phone: MCH (RBC) [Entitic mass] 30.9 pg 25.2 - 33.5 pg [employer] Phone: MCHC (RBC) [Mass/Vol] 32.6 g/dL 28.4 - 34.8 g/dL [employer] Phone: MCV (RBC) [Entitic vol] 94.8 fL 82.6 - 102.9 fL [employer] Phone: NRBC Automated 0.0 0.0 per 100 WBC [employer] Phone: Platelet distribution width (Bld) [Ratio] 13.4 % 11.8 - 14.4 % [employer] Phone: Platelet mean volume (Bld) [Entitic vol] 11.2 fL 8.1 - 13.5 fL [employer] Phone: Platelets (Bld) [#/Vol] 373 10*3/uL [employer] Phone: RBC (Bld) [#/Vol] 4.04 10*6/uL 3.95 - 5.1 1 m/uL [employer] Phone: WBC (Bld) [#/Vol] 24.9 10*3/uL High [employer] Phone: POCT urine pregnancyOrdered By: Gamaliel Vickers on 01-07-2021 Beta HCG ( test) Ql (U) Negative NEGATIVE [employer] Phone: Comment on above: Specimens with hCG l evels near the threshold of the test (25 mIU/mL) may give a negative or indeterminate result. In such cases, another test should be performed with a new specimen in 48-72 hours. If early is suspected clinically in this setting, correlation with quantitative serum b-hCG level is suggested. [id number] 01-04-2021 SARS-CoV-2 (COVID-19) RNA JOSÉ MIGUEL+probe Ql (Unsp spec) Normal [facility] Comment on above: Performed By: #### C OVID #### [facility] [address] [place] [address] Medical Office Receptionist Assistant: Wei Reyna MD [place] [phone] Medical Office Receptionist Assistant: Harpal Adair MD SARS-CoV-2 (COVID-19) RNA JOSÉ MIGUEL+probe Ql (Unsp spec) Not detected Normal NOTDET [facility] Comment on above: Result Comment: The specimen is NEGATIVE for SARS-CoV-2, the novel coronavirus associated with COVID-19. A negative result does not rule out COVID-19. [employer] SARS-CoV-2 for use on the [employer] is a real-time RT-PCR test intended [...] this assay. Fact sheet for Healthcare Providers: https://www.fda.gov/media/402352/download Fact sheet for Patients: https://www.fda.gov/media/775049/download METHODOLOGY: RT-PCR Performed By: #### C OVID #### [facility] [address] [place] [id number] Medical Office Receptionist Assistant: Wei Reyna MD [address] [phone] Medical Office Receptionist Assistant: Harpal Adair MD [id number] 01-03-2021 SARS-CoV-2 (COVID-19) RNA JOSÉ MIGUEL+probe Ql (Unsp spec) .NASOPHARYNGEAL SWAB Normal [facility] Comment on above: Performed By: #### C OVID #### [facility] [address] [place] [address] [id number] Medical Office Receptionist Assistant: Wei Reyna MD [address] [phone] Medical Office Receptionist Assistant: Harpal Adair MD Nicotine, BloodOrdered By: Jose Vickers on 12-26-2020 1-[id number] <2 ng/mL [facility] Work Phone: Cotinine <2 ng/mL [employer] Work Phone: Nicotine <2 ng/mL [facility] [employer] Work Phone: Comment on above: (NOTE) Consistent [...] developed and its performance characteristics determined by [employer]. It has not been cleared or approved by the [place] Food and Drug Administration. This test was performed in a CLIA certified laboratory and is intended for clinical purposes. Performed By: [facility] [address] [place] [id number] On Site Coordinator: Brissa Bonilla MD EKG 12 LeadOrdered By: Enmanuel Vickers on 12-25-2020 Atrial Rate 70 BPM [employer] Phone: P Iliff 20 degrees [employer] Phone: P-R Interval 176 ms [employer] Phone: Q-T Interval 414 ms [employer] Phone: QRS Duration 88 ms [employer] Phone: QTc Calculation (Bazett) 447 ms [employer] Phone: R Iliff 7 degrees [employer] Phone: T Iliff 8 degrees [employer] Phone: Ventricular Rate 70 BPM [employer] Phone: Normal sinus rhythm Normal ECG No previous ECGs available [employer] Phone: Dario, Mhpn Incoming E kg Results From [facility] - 12/25/2020 12:47 PM EDT Normal sinus rhythm Normal ECG No previous ECGs available [employer] Phone: APTTOrdered By: Gamaliel horvath on 12-24-2020 aPTT Coag (Bld) [Time] 23.1 s Me [employer] Phone: Comment on above: IV Heparin Therapy Range: 48.6-77.8 Basic Metabolic PanelOrdered By: Gamaliel Vickers on 12-24-2020 Anion gap [Moles/Vol] 10 mmol/L 9 - 17 mmol/L [employer] Phone: Calcium [Mass/Vol] 9.4 mg/dL 8.6 - 10. 4 mg/dL [employer] Phone: Chloride [Moles/Vol] 106 mmol/L 98 - 10 7 mmol/L [employer] Phone: CO2 [Moles/Vol] 23 mmol/L 20 - 31 mmol/L [employer] Phone: Creatinine [Mass/Vol] 0.56 mg/dL 0.50 - 0.90 mg/dL [employer] Phone: GFR >60 >60 mL/min [employer] Phone: GFR Non- >60 >60 mL/min [employer] Phone: GFR/1.73 sq M.predicted MDRD (S/P/Bld) [Vol rate/Area] [employer] Phone: Comment on above: Average GFR for 30-3 9 years old: 107 mL/min/1.73sq m Chronic Kidney Disease: <60 mL/min/1.73sq m Kidney failure: <15 mL/min/1.73sq m eGFR calculated using average adult body mass. Additional eGFR calculator available at: http://www.[employer]/multiple_crcl_2012.htm GFR/1.73 sq M.predicted MDRD (S/P/Bld) [Vol rate/Area] NOT REPORTED [employer] Phone: Glucose [Mass/Vol] 86 mg/dL 70 - 99 mg/dL [employer] Phone: Potassium [Moles/Vol] 3.8 mmol/L 3.7 - 5.3 mmol/L [employer] Phone: Sodium [Moles/Vol] 139 mmol/L 135 - 144 mmol/L [employer] Phone: Urea nitrogen (BldV) [Mass/Vol] 12 mg/dL 6 - 20 mg/dL [employer] Phone: Urea nitrogen/Creatinine (Bld) [Mass ratio] NOT REPORTED [employer] Phone: CBCOrdered By: Gamaliel castillo on 12-24-2020 Hematocrit (Bld) [Volume fraction] 41.2 % 36.3 - 47.1 % [employer] Phone: Hemoglobin.gastrointes tinal spec 1 Ql (Stl) 13.4 g/dL 11.9 - 15.1 g/dL [employer] Phone: MCH (RBC) [Entitic mass] 30.5 pg 25.2 - 33.5 pg [employer] Phone: MCHC (RBC) [Mass/Vol] 32.5 g/dL 28.4 - 34.8 g/dL [employer] Phone: MCV (RBC) [Entitic vol] 93.6 fL 82.6 - 102.9 fL [employer] Phone: NRBC Automated 0.0 0.0 per 100 WBC [employer] Phone: Platelet distribution width (Bld) [Ratio] 13.2 % 11.8 - 14.4 % [employer] Phone: Platelet mean volume (Bld) [Entitic vol] 10.7 fL 8.1 - 13.5 fL [employer] Phone: Platelets (Bld) [#/Vol] 391 10*3/uL [employer] Phone: RBC (Bld) [#/Vol] 4.40 10*6/uL 3.95 - 5.1 1 m/uL [employer] Phone: WBC (Bld) [#/Vol] 8.5 10*3/uL [employer] Phone: Protime-INROrdered By: Enmanuel Vickers on 12-24-2020 INR Coag (Bld) [Relative time] 0.9 {INR} [employer] Phone: Comment on above: Therapeutic Range: Moderate Anticoagulant Intensity: INR = 2.0-3.0 High Anticoagulant Intensity: INR = 2.5-3.5 PT Coag (PPP) [Time] 10 s [employer] Phone: XR CHEST (2 VW)on 12-24-2020 No acute cardiopulmonary findings [employer] Phone: EXAMINATION: TWO XRA Y VIEWS OF THE CHEST 12/24/2020 11:24 am COMPARISON: None. HISTORY: ORDERING SYSTEM PROVIDED HISTORY: preop gastric bypass [employer] TECHNOLOGIST PROVIDED HISTORY: preop gastric bypass Tian [employer] Y Reason for Exam: no chest complaints FINDINGS: Normal cardiopericardial silhouette There are no significant mediastinal, pleural, parenchymal or osseous findings [employer] Phone: Dario, Mhpn Incoming Radiant Results From [employer] - 12/24/2020 11:30 AM EDT EXAMINATION: TWO XRAY VIEWS OF THE CHEST 12/24/2020 11:24 am COMPARISON: None. HISTORY: ORDERING SYSTEM PROVIDED HISTORY: preop gastric bypass [employer] TECHNOLOGIST PROVIDED HISTORY: preop gastric bypass Tian En Y Reason for Exam: no chest complaints FINDINGS: Normal cardiopericardial silhouette There are no significant mediastinal, pleural, parenchymal or osseous findings IMPRESSION: No acute cardiopulmonary findings [employer] Phone: XR CHEST (2 VW)Ordered By: Jose Vickers on 12-24-2020 No acute cardiopulmonary findings [employer] Phone: EXAMINATION: TWO XRA Y VIEWS OF THE CHEST 12/24/2020 11:24 am COMPARISON: None. HISTORY: ORDERING SYSTEM PROVIDED HISTORY: preop gastric bypass Tian [employer] TECHNOLOGIST PROVIDED HISTORY: preop gastric bypass Tian En Y Reason for Exam: no chest complaints FINDINGS: Normal cardiopericardial silhouette There are no significant mediastinal, pleural, parenchymal or osseous findings [employer] Phone: Dario, Mhpn Incoming Radiant Results From [employer] - 12/24/2020 11:30 AM EDT EXAMINATION: TWO XRAY VIEWS OF THE CHEST 12/24/2020 11:24 am COMPARISON: None. HISTORY: ORDERING SYSTEM PROVIDED HISTORY: preop gastric bypass [employer] TECHNOLOGIST PROVIDED HISTORY: preop gastric bypass Tian En Y Reason for Exam: no chest complaints FINDINGS: Normal cardiopericardial silhouette There are no significant mediastinal, pleural, parenchymal or osseous findings IMPRESSION: No acute cardiopulmonary findings [employer] Phone: FL UGI W AIR CONTRASTon 10-15 Intermittent significant spontaneous GE reflux. Otherwise unremarkable double-contrast upper GI and esophagram. [employer] Phone: EXAMINATION: DOUBLE CONTRAST UPPER GI SERIES [...] The duodenal bulb and sweep are normal. [employer] Phone: Dario, Mhpn Incoming Radiant Results From [employer] - 11/01/2020 5:21 PM EST EXAMINATION: DOUBLE [...] double-contrast upper GI and esophagram. [facility] Work Phone: COVID-19on 09-25-2020 SARS-CoV-2 [place], [place] SARS-CoV-2 Not Detected Not Detected [place], [place] Comment on above: The specimen is NEGATIVE for SARS-CoV-2, the novel coronavirus associated with COVID-19. A negative result does not rule out COVID-19. [employer]ide SARS-CoV-2 for use on the [employer] is a real-time RT-PCR test intended [...] this assay. Fact sheet for Healthcare Providers: https://www.fda.gov/media/547683/download Fact sheet for Patients: https://www.fda.gov/media/090898/download METHODOLOGY: RT-PCR SARS-CoV-2, [place], [place] Source .NASOPHARYNGEAL SWAB [place], [place] Vital Signs Date Time Vital Sign Value Performing Clinician Facility 05-30-2025 10:55-0400 Diastolic blood pressure 72 mm[Hg] Jennie Durand DO Work Phone: [facility] 05-30-2025 10:55-0400 Heart rate 66 /min Jennie Durand DO Work Phone: [facility] 05-30-2025 10:55-0400 Respiratory rate 16 /min Jennie Durand DO Work Phone: [facility] 05-30-2025 10:55-0400 SaO2% (BldA) [Mass fraction] 99 % Jennie Durand DO Work Phone: [facility] 05-30-2025 10:55-0400 Systolic blood pressure 123 mm[Hg] Jennie Durand DO Work Phone: [facility] 05-30-2025 10:18-0400 Body temperature 97.9 [degF] Jennie Durand DO Work Phone: [facility] 05-30-2025 09:53-0400 Inhaled oxygen flow rate 8 L/min Jennie Durand DO Work Phone: [facility] 05-30-2025 07:55-0400 Body height 170.18 cm Jennie Durand DO Work Phone: [facility] 05-30-2025 07:55-0400 Body weight 89 kg Jennie Durand DO Work Phone: [facility] 04-13-2025 09:41-0400 Body height 170.2 cm Aaliyah Itzkowitz DO Work Phone: [facility] 04-13-2025 09:41-0400 Body mass index (BMI) [Ratio] 30.54 kg/m2 Aaliyah Itzkowitz DO Work Phone: [facility] 04-13-2025 09:41-0400 Body weight 88.45 kg Aaliyah Itzkowitz DO Work Phone: [facility] 04-13-2025 09:41-0400 Diastolic blood pressure 84 mm[Hg] Aaliyah Itzkowitz DO Work Phone: [facility] 04-13-2025 09:41-0400 Systolic blood pressure 118 mm[Hg] Aaliyah Itzkowitz DO Work Phone: [facility] 04-09-2025 10:45-0400 Body mass index (BMI) [Ratio] 32.44 kg/m2 Shazia Didion DIRECTOR LOAN Work Phone: [facility] 04-09-2025 10:45-0400 Body temperature 96.1 [degF] Shazia Didion DIRECTOR LOAN Work Phone: [facility] 04-09-2025 10:45-0400 Body weight 91.17 kg Shazia Didion DIRECTOR LOAN Work Phone: [facility] 04-09-2025 10:45-0400 Diastolic blood pressure 82 mm[Hg] Shazia Didion DIRECTOR LOAN Work Phone: [facility] 04-09-2025 10:45-0400 Heart rate 95 /min Shazia Didion DIRECTOR LOAN Work Phone: [facility] 04-09-2025 10:45-0400 SaO2% (BldA) [Mass fraction] 98 % Shazia Didion DIRECTOR LOAN Work Phone: [facility] 04-09-2025 10:45-0400 Systolic blood pressure 118 mm[Hg] Shazia Didion DIRECTOR LOAN Work Phone: [facility] 01-27-2025 10:12-0400 Diastolic blood pressure 91 mm[Hg] Orlando Kate [facility] 01-27-2025 10:12-0400 Heart rate 86 /min Orlando Kate [facility] 01-27-2025 10:12-0400 Mean blood pressure 106 mm[Hg] Orlando Kate [facility] 01-27-2025 10:12-0400 Respiratory rate 14 /min Orlando Kate [facility] 01-27-2025 10:12-0400 Systolic blood pressure 136 mm[Hg] Orlando Kate [facility] 01-24-2025 09:59-0400 Heart rate 76 /min Babar Mayers [facility] 01-24-2025 09:59-0400 SaO2% (BldA) [Mass fraction] 100 % Babar Mayers [facility] 01-24-2025 09:59-0400 Diastolic blood pressure 88 mm[Hg] Babar Mayers [facility] 01-24-2025 09:59-0400 Mean blood pressure 104 mm[Hg] Babar Mayers [facility] 01-24-2025 09:59-0400 Systolic blood pressure 137 mm[Hg] Babar Mayers [facility] 01-24-2025 09:54-0400 Diastolic blood pressure 80 mm[Hg] Babar Mayers [facility] 01-24-2025 09:54-0400 Heart rate 79 /min Babar Mayers [facility] 01-24-2025 09:54-0400 Respiratory rate 14 /min Babar Mayers [facility] 01-24-2025 09:54-0400 SaO2% (BldA) [Mass fraction] 100 % Babar Mayers [facility] 01-24-2025 09:54-0400 Systolic blood pressure 141 mm[Hg] Babar Mayers [facility] 01-24-2025 08:35-0400 Heart rate 79 /min Babar Mayers [facility] 01-24-2025 08:35-0400 SaO2% (BldA) [Mass fraction] 99 % Babar Mayers [facility] 01-24-2025 08:34-0400 Body temperature 97.88 [degF] Babar Mayers [facility] 01-24-2025 08:34-0400 Diastolic blood pressure 91 mm[Hg] Babar Mayers [facility] 01-24-2025 08:34-0400 Mean blood pressure 105 mm[Hg] Babar Mayers [facility] 01-24-2025 08:34-0400 Systolic blood pressure 134 mm[Hg] Babar Mayers [facility] 01-24-2025 08:32-0400 Respiratory rate 16 /min Babar Mayers [facility] 01-13-2025 08:15-0400 Diastolic blood pressure 95 mm[Hg] Orlando Kate [facility] 01-13-2025 08:15-0400 Heart rate 79 /min Orlando Kate [facility] 01-13-2025 08:15-0400 Mean blood pressure 108 mm[Hg] Orlando Kate [facility] 01-13-2025 08:15-0400 Respiratory rate 16 /min Orlando Kate [facility] 01-13-2025 08:15-0400 Systolic blood pressure 133 mm[Hg] Orlando Kate [facility] 12-16-2024 10:31-0400 Body height 170.18 cm [facility] 12-16-2024 10:31-0400 Body weight 83.91 kg [facility] 11-28-2024 10:23-0400 Heart rate 64 /min Babar Mayers [facility] 11-28-2024 10:23-0400 SaO2% (BldA) [Mass fraction] 100 % Babar Mayers [facility] 11-28-2024 10:23-0400 Diastolic blood pressure 86 mm[Hg] Babar Mayers [facility] 11-28-2024 10:23-0400 Mean blood pressure 101 mm[Hg] Babar Mayers [facility] 11-28-2024 10:23-0400 Systolic blood pressure 133 mm[Hg] Babar Mayers [facility] 11-28-2024 10:23-0400 Respiratory rate 16 /min Babar Mayers [facility] 11-28-2024 10:19-0400 Diastolic blood pressure 97 mm[Hg] Babar Mayers [facility] 11-28-2024 10:19-0400 Heart rate 81 /min Babar Mayers [facility] 11-28-2024 10:19-0400 SaO2% (BldA) [Mass fraction] 97 % Babar Mayers [facility] 11-28-2024 10:19-0400 Systolic blood pressure 137 mm[Hg] Babar Mayers [facility] 11-28-2024 09:10-0400 Heart rate 77 /min Babar Mayers [facility] 11-28-2024 09:10-0400 SaO2% (BldA) [Mass fraction] 99 % Babar Mayers [facility] 11-28-2024 09:09-0400 Diastolic blood pressure 97 mm[Hg] Eckert Talib [facility] 11-28-2024 09:09-0400 Mean blood pressure 115 mm[Hg] Babar Mayers [facility] 11-28-2024 09:09-0400 Systolic blood pressure 149 mm[Hg] Babar Mayers [facility] 11-28-2024 09:09-0400 Body temperature 98.06 [degF] Babar Mayers [facility] 11-28-2024 09:06-0400 Respiratory rate 20 /min Babar Mayers [facility] 11-15-2024 13:35-0500 Diastolic blood pressure 93 mm[Hg] Orlando Kate [facility] 11-15-2024 13:35-0500 Heart rate 90 /min Orlando Kate [facility] 11-15-2024 13:35-0500 Mean blood pressure 106 mm[Hg] Orlando Kate [facility] 11-15-2024 13:35-0500 Respiratory rate 14 /min Orlando Kate [facility] 11-15-2024 13:35-0500 Systolic blood pressure 131 mm[Hg] Orlando Kate [facility] 10-18-2024 08:08-0500 Body temperature 98.24 [degF] [facility] 10-18-2024 08:08-0500 Diastolic blood pressure 88 mm[Hg] [facility] 10-18-2024 08:08-0500 Heart rate 86 /min [facility] 10-18-2024 08:08-0500 Respiratory rate 16 /min [facility] 10-18-2024 08:08-0500 SaO2% (BldA) [Mass fraction] 100 % [facility] 10-18-2024 08:08-0500 Systolic blood pressure 123 mm[Hg] Astrit Hajdari [facility] 09-21-2024 11:17-0500 Body mass index (BMI) [Ratio] 30.12 kg/m2 Christopher Suzie DO Work Phone: [facility] 09-21-2024 11:17-0500 Body weight 84.64 kg Christopher Suzie DO Work Phone: [facility] 09-21-2024 11:17-0500 Diastolic blood pressure 84 mm[Hg] Christopher Suzie DO Work Phone: [facility] 09-21-2024 11:17-0500 Heart rate 80 /min Christopher Suzie DO Work Phone: [facility] 09-21-2024 11:17-0500 SaO2% (BldA) [Mass fraction] 98 % [facility] DO Work Phone: [facility] 09-21-2024 11:17-0500 Systolic blood pressure 118 mm[Hg] Christopher Suzie DO Work Phone: [facility] 09-15-2024 16:36-0500 Diastolic blood pressure 82 mm[Hg] [facility] 09-15-2024 16:36-0500 Heart rate 55 /min [facility] 09-15-2024 16:36-0500 Respiratory rate 23 /min [facility] 09-15-2024 16:36-0500 SaO2% (BldA) [Mass fraction] 100 % [facility] 09-15-2024 16:36-0500 Systolic blood pressure 147 mm[Hg] [facility] 09-15-2024 13:29-0500 Body height 170.18 cm [facility] 09-15-2024 13:29-0500 Body temperature 98 [degF] [facility] 09-15-2024 13:29-0500 Body weight 89 kg [facility] 09-13-2024 09:40-0500 Body height 170.[address] 09-13-2024 09:40-0500 Body mass index (BMI) [Ratio] 29.44 kg/m2 [address] 09-13-2024 09:40-0500 Body weight 85.[address] 09-13-2024 09:40-0500 Diastolic blood pressure 76 mm[Hg] [address] 09-13-2024 09:40-0500 Systolic blood pressure 118 mm[Hg] [address] 08-08-2024 15:29-0500 Diastolic blood pressure 70 mm[Hg] Aleah Howard MD Work Phone: [facility] 08-08-2024 15:29-0500 Systolic blood pressure 110 mm[Hg] Aleah Howard MD Work Phone: [facility] 08-08-2024 15:28-0500 Body height 170.2 cm Aleah Howard MD Work Phone: [facility] 08-08-2024 15:28-0500 Body mass index (BMI) [Ratio] 29.44 kg/m2 Aleah Howard MD Work Phone: [facility] 08-08-2024 15:28-0500 Body weight 85.28 kg Aleah Howard MD Work Phone: [facility] 08-08-2024 15:28-0500 Heart rate 75 /min Aleah Howard MD Work Phone: [facility] 07-25-2024 15:08-0500 Body mass index (BMI) [Ratio] 28.94 kg/m2 Tevin Carson DO Work Phone: [facility] 07-25-2024 15:08-0500 Body weight 83.8 kg Tevin Carson DO Work Phone: [facility] 07-25-2024 15:08-0500 Diastolic blood pressure 72 mm[Hg] Tevin Carson DO Work Phone: [facility] 07-25-2024 15:08-0500 Heart rate 67 /min Tevin Carson DO Work Phone: [facility] 07-25-2024 15:08-0500 SaO2% (BldA) [Mass fraction] 100 % Tevin Carson DO Work Phone: [facility] 07-25-2024 15:08-0500 Systolic blood pressure 122 mm[Hg] Tevin Carson DO Work Phone: [facility] 07-04-2024 11:01-0400 Body height 170.2 cm Fatuma Tyler FELT COVERER.POLICY ADVISER Work Phone: [facility] 07-04-2024 11:01-0400 Body mass index (BMI) [Ratio] 28.98 kg/m2 Fatuma Tyler FELT COVERER.POLICY ADVISER Work Phone: [facility] 07-04-2024 11:01-0400 Body weight 83.92 kg Fatuma Tyler FELT COVERER.POLICY ADVISER Work Phone: [facility] 07-01-2024 11:01-0400 Body height 170.2 cm Tevni Carson DO Work Phone: [facility] 07-01-2024 11:01-0400 Body mass index (BMI) [Ratio] 29.8 kg/m2 Tevin Carson DO Work Phone: [facility] 07-01-2024 11:01-0400 Body weight 86.3 kg Tevin Carson DO Work Phone: [facility] 07-01-2024 11:01-0400 Diastolic blood pressure 59 mm[Hg] Tevin Carson DO Work Phone: [facility] 07-01-2024 11:01-0400 Heart rate 72 /min Tevin Carson DO Work Phone: [facility] 07-01-2024 11:01-0400 SaO2% (BldA) [Mass fraction] 99 % Tevin Carson DO Work Phone: [facility] 07-01-2024 11:01-0400 Systolic blood pressure 101 mm[Hg] Tevin Yamileth DO Work Phone: [facility] 03-08-2024 15:02-0400 Diastolic blood pressure 78 mm[Hg] Alexis Lopeze [facility] 03-08-2024 15:02-0400 Heart rate 65 /min Alexis Lopeze [facility] 03-08-2024 15:02-0400 Mean blood pressure 89 mm[Hg] Alexis Lopeze [facility] 03-08-2024 15:02-0400 SaO2% (BldA) [Mass fraction] 100 % Alexis Lopeze [facility] 03-08-2024 15:02-0400 Systolic blood pressure 110 mm[Hg] Alexis Lopeze [facility] 03-08-2024 14:00-0400 SaO2% (BldA) [Mass fraction] 99 % Alexis Lopeze [facility] 03-08-2024 13:37-0400 Body temperature 98.42 [degF] Alexis Lopeze [facility] 03-08-2024 13:37-0400 Diastolic blood pressure 82 mm[Hg] Alexis Lopeze [facility] 03-08-2024 13:37-0400 Heart rate 70 /min Alexis Lopeze [facility] 03-08-2024 13:37-0400 Respiratory rate 18 /min Alexis Lopeze [facility] 03-08-2024 13:37-0400 SaO2% (BldA) [Mass fraction] 100 % Alexis Lopeze [facility] 03-08-2024 13:37-0400 Systolic blood pressure 126 mm[Hg] Alexis Lopeze [facility] 03-08-2024 13:14-0400 Body temperature 98.24 [degF] Alexis Shukla [facility] 03-08-2024 13:14-0400 Diastolic blood pressure 87 mm[Hg] Alexis Shukla [facility] 03-08-2024 13:14-0400 Heart rate 67 /min Alexis Shukla [facility] 03-08-2024 13:14-0400 Respiratory rate 16 /min Alexis Shukla [facility] 03-08-2024 13:14-0400 Systolic blood pressure 135 mm[Hg] Alexis Shukla [facility] 03-08-2024 08:06-0400 Body height 170.2 cm Elia [...] Phone: [facility] 01-04-2024 09:28-0400 Diastolic blood pressure 86 mm[Hg] Elia Baires DO Work Phone: [facility] 01-04-2024 [id number] Heart rate 92 /min Elia Baires DO Work Phone: [facility] 01-04-2024 [id number] SaO2% (BldA) [Mass fraction] 97 % Elia Baires DO Work Phone: [facility] 01-04-2024 [id number] Systolic blood pressure 123 mm[Hg] Elia Baires DO Work Phone: [facility] 12-31-2023 11:17-0400 Heart rate 76 /min DO Jennie Durand Work Phone: [facility] 12-31-2023 11:14-0400 Body temperature 98.2 [degF] DO Jennie Durand Work Phone: [facility] 12-31-2023 11:14-0400 Diastolic blood pressure 73 mm[Hg] DO Jennie Durand Work Phone: [facility] 12-31-2023 11:14-0400 Respiratory rate 18 /min DO Jennie Durand Work Phone: [facility] 12-31-2023 11:14-0400 SaO2% (BldA) [Mass fraction] 97 % DO Jennie Durand Work Phone: [facility] 12-31-2023 11:14-0400 Systolic blood pressure 138 mm[Hg] DO Jennie Durand Work Phone: [facility] 12-31-2023 11:13-0400 Body height 170.18 cm DO Jennie Durand Work Phone: [facility] 12-31-2023 11:13-0400 Body weight 89.35 kg DO Jennie Durand Work Phone: [facility] 12-24-2023 11:58-0400 Body height 170.18 cm DO Jennie Durand Work Phone: [facility] 12-24-2023 11:58-0400 Body temperature 97.8 [degF] DO Jennie Durand Work Phone: [facility] 12-24-2023 11:58-0400 Body weight 89 kg DO Jennie Durand Work Phone: [facility] 12-24-2023 11:58-0400 Diastolic blood pressure 91 mm[Hg] DO Jennie Durand Work Phone: [facility] 12-24-2023 11:58-0400 Heart rate 85 /min DO Jennie Durand Work Phone: [facility] 12-24-2023 11:58-0400 Respiratory rate 15 /min DO Jennie Durand Work Phone: [facility] 12-24-2023 11:58-0400 SaO2% (BldA) [Mass fraction] 100 % DO Jennie Durand Work Phone: [facility] 12-24-2023 11:58-0400 Systolic blood pressure 137 mm[Hg] DO Jennie Durand Work Phone: [facility] 12-10-2023 12:35-0400 Heart rate 70 /min DO Jennie Durand Work Phone: [facility] 12-10-2023 12:35-0400 Respiratory rate 16 /min DO Jennie Durand Work Phone: [facility] 12-10-2023 12:35-0400 SaO2% (BldA) [Mass fraction] 98 % DO Jennie Durand Work Phone: [facility] 12-10-2023 12:08-0400 Body height 170.18 cm DO Jennie Durand Work Phone: [facility] 12-10-2023 12:08-0400 Body temperature 98 [degF] DO Jennie Durand Work Phone: [facility] 12-10-2023 12:08-0400 Body weight 89.8 kg DO Jennie Durand Work Phone: [facility] 12-10-2023 12:08-0400 Diastolic blood pressure 76 mm[Hg] DO Jennie Durand Work Phone: [facility] 12-10-2023 12:08-0400 Systolic blood pressure 123 mm[Hg] DO Jennie Durand Work Phone: [facility] 09-18-2023 08:49-0500 Diastolic blood pressure 72 mm[Hg] Gamaliel Vickers DO Work Phone: [employer] 09-18-2023 08:49-0500 Heart rate 58 /min Gamaliel Vickers DO Work Phone: [employer] 09-18-2023 08:49-0500 Respiratory rate 18 /min Gamaliel Vickers DO Work Phone: [employer] 09-18-2023 08:49-0500 SaO2% (BldA) [Mass fraction] 100 % Gamaliel Vickers DO Work Phone: [employer] 09-18-2023 08:49-0500 Systolic blood pressure 111 mm[Hg] Gamaliel Vickers DO Work Phone: [employer] 09-18-2023 08:24-0500 Body temperature 97.11 [degF] Gamaliel Vickers DO Work Phone: [employer] 09-18-2023 07:23-0500 Body height 170.2 cm Gamaliel Vickers DO Work Phone: [facility] 09-18-2023 07:23-0500 Body mass index (BMI) [Ratio] 31.79 kg/m2 Gamaliel Vickers DO Work Phone: [facility] 09-18-2023 07:23-0500 Body weight 92.08 kg Gamaliel Vickers DO Work Phone: [facility] 08-15-2023 13:37-0500 Diastolic blood pressure 69 mm[Hg] DO Jennie Durand Work Phone: [facility] 08-15-2023 13:37-0500 Heart rate 70 /min DO Jennie Durand Work Phone: [facility] 08-15-2023 13:37-0500 Respiratory rate 18 /min DO Jennie Durand Work Phone: [facility] 08-15-2023 13:37-0500 SaO2% (BldA) [Mass fraction] 99 % DO Jennie Durand Work Phone: [facility] 08-15-2023 13:37-0500 Systolic blood pressure 107 mm[Hg] DO Jennie Durand Work Phone: [facility] 08-15-2023 11:29-0500 Body height 170.18 cm DO Jennie Durand Work Phone: [facility] 08-15-2023 11:29-0500 Body temperature 98.2 [degF] DO Jennie Durand Work Phone: [facility] 08-15-2023 11:29-0500 Body weight 86.18 kg DO Jennie Durand Work Phone: [facility] 08-14-2023 16:43-0500 Body height 170.18 cm DO Jennie Durand Work Phone: [facility] 08-14-2023 16:43-0500 Body temperature 98.2 [degF] DO Jennie Durand Work Phone: [facility] 08-14-2023 16:43-0500 Body weight 88.6 kg DO Jennie Durand Work Phone: [facility] 08-14-2023 16:43-0500 Diastolic blood pressure 66 mm[Hg] DO Jennie Durand Work Phone: [facility] 08-14-2023 16:43-0500 Heart rate 80 /min DO Jennie Durand Work Phone: [facility] 08-14-2023 16:43-0500 Respiratory rate 18 /min DO Jennie Durand Work Phone: [facility] 08-14-2023 16:43-0500 SaO2% (BldA) [Mass fraction] 98 % DO Jennie Hameede Work Phone: [facility] 08-14-2023 16:43-0500 Systolic blood pressure 118 mm[Hg] DO Jennie Durand Work Phone: [facility] 08-13-2023 11:15-0500 Body height 170.18 cm Imad Asaad Other [employer] Other 08-13-2023 11:15-0500 Body mass index (BMI) [Ratio] 30.54 kg/m2 Imad Asaad Other [employer] Other 08-13-2023 11:15-0500 Body weight 88.45 kg Imad Asaad Other [employer] Other 08-13-2023 11:15-0500 Diastolic blood pressure 84 mm[Hg] Imad Asaad Other [employer] Other 08-13-2023 11:15-0500 Systolic blood pressure 133 mm[Hg] Imad Asaad Other [employer] Other 07-08-2023 12:05-0400 Body height 170.18 cm Ania Javed Other [employer] Other 07-08-2023 12:05-0400 Body mass index (BMI) [Ratio] 30.22 kg/m2 Ania Javed Other [employer] Other 07-08-2023 12:05-0400 Body temperature 99 [degF] Ania Javed Other [employer] Other 07-08-2023 12:05-0400 Body weight 87.54 kg Ania Javed Other [employer] Other 07-08-2023 12:05-0400 Diastolic blood pressure 64 mm[Hg] Ania Shipleymond Other [employer] Other 07-08-2023 12:05-0400 Respiratory rate 19 /min Ania Shipleymond Other [employer] Other 07-08-2023 12:05-0400 SaO2% (BldA) [Mass fraction] 98 % Ania Javed Other [employer] Other 07-08-2023 12:05-0400 Systolic blood pressure 110 mm[Hg] Ania Tegan Other [employer] Other 07-03-2023 11:05-0400 Diastolic blood pressure 80 mm[Hg] DO Jennie Durand Work Phone: [facility] 07-03-2023 11:05-0400 Heart rate 78 /min DO Jennie Durand Work Phone: [facility] 07-03-2023 11:05-0400 Respiratory rate 16 /min DO Jennie Durand Work Phone: [facility] 07-03-2023 11:05-0400 SaO2% (BldA) [Mass fraction] 99 % DO Jennie Hameede Work Phone: [facility] 07-03-2023 11:05-0400 Systolic blood pressure 119 mm[Hg] DO Jennie Durand Work Phone: [facility] 07-03-2023 10:10-0400 Body height 170.18 cm DO Jennie Durand Work Phone: [facility] 07-03-2023 10:10-0400 Body temperature 98.7 [degF] DO Jennie Hameede Work Phone: [facility] 07-03-2023 10:10-0400 Body weight 86.9 kg DO Jennie Durand Work Phone: [facility] 07-02-2023 14:06-0400 Body temperature 98.06 [degF] Bakari Chester [facility] 07-02-2023 14:06-0400 Diastolic blood pressure 78 mm[Hg] Bakari Henrik [facility] 07-02-2023 14:06-0400 Heart rate 91 /min Bakari Henrik [facility] 07-02-2023 14:06-0400 Respiratory rate 18 /min Bakari Henrik [facility] 07-02-2023 14:06-0400 SaO2% (BldA) [Mass fraction] 100 % Bakari Henrik [facility] 07-02-2023 14:06-0400 Systolic blood pressure 121 mm[Hg] Bakari Henrik [facility] 01-15-2023 13:30-0400 Diastolic blood pressure 85 mm[Hg] Bakari Henrik [facility] 01-15-2023 13:30-0400 Heart rate 71 /min Bakari Henrik [facility] 01-15-2023 13:30-0400 Mean blood pressure 98 mm[Hg] Bakari Henrik [facility] 01-15-2023 13:30-0400 Respiratory rate 18 /min Bakari Henrik [facility] 01-15-2023 13:30-0400 SaO2% (BldA) [Mass fraction] 100 % Bakari Henrik [facility] 01-15-2023 13:30-0400 Systolic blood pressure 125 mm[Hg] Bakari Henrik [facility] 01-15-2023 12:30-0400 Diastolic blood pressure 99 mm[Hg] Bakari Henrik [facility] 01-15-2023 12:30-0400 Heart rate 78 /min Bakari Henrik [facility] 01-15-2023 12:30-0400 Mean blood pressure 107 mm[Hg] Bakari Henrik [facility] 01-15-2023 12:30-0400 Respiratory rate 18 /min Bakari Henrik [facility] 01-15-2023 12:30-0400 SaO2% (BldA) [Mass fraction] 100 % Bakari Henrik [facility] 01-15-2023 12:30-0400 Systolic blood pressure 122 mm[Hg] Bakari Henrik [facility] 01-15-2023 10:50-0400 Body temperature 98.42 [degF] Bakari Henrik [facility] 01-15-2023 10:50-0400 Diastolic blood pressure 74 mm[Hg] Bakari Chester [facility] 01-15-2023 10:50-0400 Heart rate 77 /min Bakari Chester [facility] 01-15-2023 10:50-0400 Mean blood pressure 92 mm[Hg] Bakari Chester [facility] 01-15-2023 10:50-0400 Respiratory rate 17 /min Bakari Chester [facility] 01-15-2023 10:50-0400 SaO2% (BldA) [Mass fraction] 99 % Bakari Chester [facility] 01-15-2023 10:50-0400 Systolic blood pressure 129 mm[Hg] Bakari Chester [facility] 12-05-2022 13:20-0400 Diastolic blood pressure 74 mm[Hg] Gal Das [facility] 12-05-2022 13:20-0400 Heart rate 58 /min Gal Das [facility] 12-05-2022 13:20-0400 Respiratory rate 18 /min Gal Das [facility] 12-05-2022 13:20-0400 SaO2% (BldA) [Mass fraction] 100 % Gal Thiago [facility] 12-05-2022 13:20-0400 Systolic blood pressure 110 mm[Hg] Gal Thiago [facility] 12-05-2022 12:00-0400 Heart rate 54 /min Gal Thiago [facility] 12-05-2022 12:00-0400 SaO2% (BldA) [Mass fraction] 100 % Gal Thiago [facility] 12-05-2022 11:59-0400 Diastolic blood pressure 72 mm[Hg] Gal Das [facility] 12-05-2022 11:59-0400 Mean blood pressure 84 mm[Hg] Gal Das [facility] 12-05-2022 11:59-0400 Systolic blood pressure 109 mm[Hg] Gal Das [facility] 12-05-2022 11:53-0400 Body temperature 97.52 [degF] Gal Das [facility] 12-05-2022 11:53-0400 Diastolic blood pressure 73 mm[Hg] Gal Das [facility] 12-05-2022 11:53-0400 Heart rate 59 /min Gal Das [facility] 12-05-2022 11:53-0400 Mean blood pressure 87 mm[Hg] Gal Das [facility] 12-05-2022 11:53-0400 Respiratory rate 14 /min Gal Das [facility] 12-05-2022 11:53-0400 SaO2% (BldA) [Mass fraction] 100 % Gal Das [facility] 12-05-2022 11:53-0400 Systolic blood pressure 115 mm[Hg] Gal Das [facility] 12-05-2022 11:40-0400 Mean blood pressure 80 mm[Hg] Gal Marinten [facility] 12-05-2022 11:40-0400 Respiratory rate 18 /min Gal Das [facility] 12-05-2022 11:30-0400 Mean blood pressure 90 mm[Hg] Gal Das [facility] 12-05-2022 11:15-0400 Body temperature 97.34 [degF] Gal Das [facility] 12-05-2022 11:10-0400 Respiratory rate 18 /min Gal Das [facility] 12-05-2022 11:05-0400 Respiratory rate 21 /min Gal Das [facility] 12-05-2022 11:00-0400 Respiratory rate 11 /min Gal Das [facility] 12-05-2022 07:15-0400 Mean blood pressure 79 mm[Hg] Gal Das [facility] 12-05-2022 07:15-0400 Body temperature 97.88 [degF] Gal Das [facility] 12-05-2022 07:15-0400 Heart rate 72 /min Gal Das [facility] 12-05-2022 07:12-0400 Mean blood pressure 82 mm[Hg] Gal Das [facility] 11-21-2022 10:44-0500 Diastolic blood pressure 75 mm[Hg] Gal Das [facility] 11-21-2022 10:44-0500 Heart rate 67 /min Gal Das [facility] 11-21-2022 10:44-0500 Mean blood pressure 88 mm[Hg] Gal Marinten [facility] 11-21-2022 10:44-0500 Systolic blood pressure 112 mm[Hg] Gal Marinten [facility] 11-21-2022 10:44-0500 Heart rate 71 /min Gal Das [facility] 11-21-2022 10:44-0500 SaO2% (BldA) [Mass fraction] 100 % Gal Das [facility] 11-21-2022 10:43-0500 Diastolic blood pressure 79 mm[Hg] Gal Das [facility] 11-21-2022 10:43-0500 Mean blood pressure 91 mm[Hg] Gal Das [facility] 11-21-2022 10:43-0500 Systolic blood pressure 116 mm[Hg] Gal Das [facility] 11-21-2022 10:43-0500 Respiratory rate 16 /min Gal Das [facility] 11-20-2022 08:09-0500 Body height 170.2 cm Eileen Alvarez MD Work Phone: [facility] 11-20-2022 08:09-0500 Body weight 85.73 kg Eileen Alvarez MD Work Phone: [facility] 11-20-2022 08:09-0500 Diastolic blood pressure 81 mm[Hg] Eileen Alvarez MD Work Phone: [facility] 11-20-2022 08:09-0500 Heart rate 67 /min Eileen Alvarez MD Work Phone: [facility] 11-20-2022 08:09-0500 SaO2% (BldA) [Mass fraction] 100 % Eileen Alvarez MD Work Phone: [facility] 11-20-2022 08:09-0500 Systolic blood pressure 137 mm[Hg] Eileen Alvarez MD Work Phone: [facility] 11-03-2022 12:57-0500 Blood Pressure Location Nakia Mcqueen [facility] 11-03-2022 12:57-0500 Body temperature 98.24 [degF] Nakia Mcqueen [facility] 11-03-2022 12:57-0500 Diastolic blood pressure 80 mm[Hg] Nakia Mcqueen [facility] 11-03-2022 12:57-0500 Heart rate 85 /min Nakia Mcqueen [facility] 11-03-2022 12:57-0500 SaO2% (BldA) [Mass fraction] 98 % Nakia Mcqueen [facility] 11-03-2022 12:57-0500 Systolic blood pressure 104 mm[Hg] Nakia Mcqueen [facility] 09-24-2022 06:57-0500 Blood Pressure Location Aimee Walker [facility] 09-24-2022 06:57-0500 Body temperature 98.24 [degF] Aimee Valadezell [facility] 09-24-2022 06:57-0500 Diastolic blood pressure 64 mm[Hg] Aimee Walker [facility] 09-24-2022 06:57-0500 Heart rate 77 /min Aimee Walker [facility] 09-24-2022 06:57-0500 SaO2% (BldA) [Mass fraction] 99 % Aimeeerin Valadezell [facility] 09-24-2022 06:57-0500 Systolic blood pressure 118 mm[Hg] Aimee Walker [facility] 08-22-2022 10:31-0500 Blood Pressure Location [facility] 08-22-2022 10:31-0500 Body temperature 98.06 [degF] Rahul Alfonzovicente [facility] 08-22-2022 10:31-0500 Diastolic blood pressure 76 mm[Hg] [facility] 08-22-2022 10:31-0500 Heart rate 95 /min [facility] 08-22-2022 10:31-0500 SaO2% (BldA) [Mass fraction] 98 % [facility] 08-22-2022 10:31-0500 Systolic blood pressure 110 mm[Hg] [facility] 08-19-2022 09:45-0500 Diastolic blood pressure 69 mm[Hg] DO Jennie Durand Work Phone: [facility] 08-19-2022 09:45-0500 Heart rate 82 /min DO Jennie Durand Work Phone: [facility] 08-19-2022 09:45-0500 Respiratory rate 16 /min DO Jennie Durand Work Phone: [facility] 08-19-2022 09:45-0500 SaO2% (BldA) [Mass fraction] 95 % DO Jennie Durand Work Phone: [facility] 08-19-2022 09:45-0500 Systolic blood pressure 104 mm[Hg] DO Jennie Durand Work Phone: [facility] 08-19-2022 07:41-0500 Body height 170.18 cm DO Jennie Durand Work Phone: [facility] 08-19-2022 07:41-0500 Body weight 83.6 kg DO Jennie Durand Work Phone: [facility] 08-18-2022 17:26-0500 Body temperature 98.06 [degF] Alexis Shukla [facility] 08-18-2022 17:26-0500 Diastolic blood pressure 83 mm[Hg] Alexis Shukla [facility] 08-18-2022 17:26-0500 Heart rate 84 /min Alexis Shukla [facility] 08-18-2022 17:26-0500 Respiratory rate 18 /min Alexis Shukla [facility] 08-18-2022 17:26-0500 SaO2% (BldA) [Mass fraction] 98 % Alexis Shukla [facility] 08-18-2022 17:26-0500 Systolic blood pressure 120 mm[Hg] Alexis Shukla [facility] 08-12-2022 15:50-0500 Body temperature 97.9 [degF] DO Jennie Durand Work Phone: [facility] 08-12-2022 15:50-0500 Diastolic blood pressure 83 mm[Hg] DO Jennie Durand Work Phone: [facility] 08-12-2022 15:50-0500 Heart rate 64 /min DO Jennie Durand Work Phone: [facility] 08-12-2022 15:50-0500 Respiratory rate 20 /min DO Jennie Durand Work Phone: [facility] 08-12-2022 15:50-0500 SaO2% (BldA) [Mass fraction] 100 % DO Jennie Durand Work Phone: [facility] 08-12-2022 15:50-0500 Systolic blood pressure 136 mm[Hg] DO Jennie Durand Work Phone: [facility] 08-12-2022 11:00-0500 Body height 170.18 cm DO Jennie Durand Work Phone: [facility] 08-12-2022 06:00-0500 Body weight 88.1 kg DO Jennie Durand Work Phone: [facility] 08-08-2022 10:30-0500 Diastolic blood pressure 76 mm[Hg] Bakari Henrik [facility] 08-08-2022 10:30-0500 Heart rate 58 /min Bakari Chester [facility] 08-08-2022 10:30-0500 Mean blood pressure 88 mm[Hg] Bakari Henrik [facility] 08-08-2022 10:30-0500 Respiratory rate 20 /min Bakari Chester [facility] 08-08-2022 10:30-0500 SaO2% (BldA) [Mass fraction] 100 % Bakari Chester [facility] 08-08-2022 10:30-0500 Systolic blood pressure 112 mm[Hg] Bakari Henrik [facility] 08-08-2022 10:00-0500 Diastolic blood pressure 86 mm[Hg] Bakari Henrik [facility] 08-08-2022 10:00-0500 Heart rate 64 /min Bakari Henrik [facility] 08-08-2022 10:00-0500 Mean blood pressure 97 mm[Hg] Bakari Henrik [facility] 08-08-2022 10:00-0500 Systolic blood pressure 120 mm[Hg] Bakari Henrik [facility] 08-08-2022 09:13-0500 gluc 98 mg/dL Bakari Chester [facility] 08-08-2022 09:13-0500 gluc Bakari Chester [facility] 08-08-2022 09:06-0500 Body temperature 97.7 [degF] Bakari Chester [facility] 08-08-2022 09:06-0500 Diastolic blood pressure 87 mm[Hg] Bakari Chester [facility] 08-08-2022 09:06-0500 Heart rate 79 /min Bakari Chester [facility] 08-08-2022 09:06-0500 Respiratory rate 18 /min Bakari Chester [facility] 08-08-2022 09:06-0500 SaO2% (BldA) [Mass fraction] 100 % Bakari Chester [facility] 08-08-2022 09:06-0500 Systolic blood pressure 127 mm[Hg] Bakari Chester [facility] 07-21-2022 10:50-0500 Blood Pressure Location Aimee Walker [facility] 07-21-2022 10:50-0500 Body temperature 97.7 [degF] Aimee Walker [facility] 07-21-2022 10:50-0500 Diastolic blood pressure 72 mm[Hg] Aimee Walker [facility] 07-21-2022 10:50-0500 Heart rate 74 /min Aimee Walker [facility] 07-21-2022 10:50-0500 SaO2% (BldA) [Mass fraction] 99 % Aimee Walker [facility] 07-21-2022 10:50-0500 Systolic blood pressure 128 mm[Hg] Aimee Walker [facility] 05-13-2022 10:09-0400 Diastolic blood pressure 74 mm[Hg] Alexis Rivers [facility] 05-13-2022 10:09-0400 Heart rate 68 /min Alexis Rivers [facility] 05-13-2022 10:09-0400 Systolic blood pressure 112 mm[Hg] Alexis Rivers [facility] 04-21-2022 09:39-0400 Blood Pressure Location Aimeeerin Valadezell [facility] 04-21-2022 09:39-0400 Body temperature 98.24 [degF] Aimee Walker [facility] 04-21-2022 09:39-0400 Diastolic blood pressure 72 mm[Hg] Aimeeerin Valadezell [facility] 04-21-2022 09:39-0400 Heart rate 94 /min Aimee Walker [facility] 04-21-2022 09:39-0400 SaO2% (BldA) [Mass fraction] 100 % Aimee Walker [facility] 04-21-2022 09:39-0400 Systolic blood pressure 112 mm[Hg] Aimee Walker [facility] 04-20-2022 14:56-0400 Body temperature 98.24 [degF] Jose Correia [facility] 04-20-2022 14:56-0400 Diastolic blood pressure 72 mm[Hg] [facility] 04-20-2022 14:56-0400 Heart rate 69 /min [facility] 04-20-2022 14:56-0400 Respiratory rate 18 /min [facility] 04-20-2022 14:56-0400 SaO2% (BldA) [Mass fraction] 99 % [facility] 04-20-2022 14:56-0400 Systolic blood pressure 111 mm[Hg] [facility] 04-03-2022 19:17-0400 Hourly Rounding Kaylinn Dokken [facility] 04-03-2022 19:17-0400 Promise to Return Kaylinn Dokken [facility] 04-03-2022 19:15-0400 Diastolic blood pressure 71 mm[Hg] Kaylinn Dokken [facility] 04-03-2022 19:15-0400 Heart rate 63 /min Kaylinn Dokken [facility] 04-03-2022 19:15-0400 Mean blood pressure 82 mm[Hg] Kaylinn Dokken [facility] 04-03-2022 19:15-0400 Respiratory rate 18 /min Kaylinn Dokken [facility] 04-03-2022 19:15-0400 SaO2% (BldA) [Mass fraction] 100 % Kaylinn Dokken [facility] 04-03-2022 19:15-0400 Systolic blood pressure 105 mm[Hg] Kaylinn Dokken [facility] 04-03-2022 17:09-0400 Body temperature 98.06 [degF] Sherryylinn Dokken [facility] 04-03-2022 17:09-0400 Diastolic blood pressure 83 mm[Hg] Kaylinn Dokken [facility] 04-03-2022 17:09-0400 Heart rate 87 /min Kaylinn Dokken [facility] 04-03-2022 17:09-0400 Respiratory rate 18 /min Raymondinn Dokken [facility] 04-03-2022 17:09-0400 SaO2% (BldA) [Mass fraction] 99 % Raymondinn Dokken [facility] 04-03-2022 17:09-0400 Systolic blood pressure 119 mm[Hg] Raymondinn Dokken [facility] 02-06-2022 09:06-0400 Blood Pressure Location Aimee Walker [facility] 02-06-2022 09:06-0400 Body temperature 97.52 [degF] Aimee Walker [facility] 02-06-2022 09:06-0400 Diastolic blood pressure 72 mm[Hg] Aimee Walker [facility] 02-06-2022 09:06-0400 Heart rate 81 /min Aimee Walker [facility] 02-06-2022 09:06-0400 SaO2% (BldA) [Mass fraction] 100 % Aimee Walker [facility] 02-06-2022 09:06-0400 Systolic blood pressure 130 mm[Hg] Aimeeerin Valadezell [facility] 01-29-2022 10:31-0400 Blood Pressure Location Aimeeerin Valadezell [facility] 01-29-2022 10:31-0400 Body temperature 97.16 [degF] Aimeeerin Valadezell [facility] 01-29-2022 10:31-0400 Diastolic blood pressure 76 mm[Hg] Aimee Walker [facility] 01-29-2022 10:31-0400 Heart rate 94 /min Aimeeerin Valadezell [facility] 01-29-2022 10:31-0400 SaO2% (BldA) [Mass fraction] 98 % Aimee Valadezell [facility] 01-29-2022 10:31-0400 Systolic blood pressure 118 mm[Hg] Aimee Walker [facility] 02-01-2021 07:15-0400 Body temperature 97.7 [degF] Berry Lawson MD Work Phone: [employer] Work Phone: 02-01-2021 07:15-0400 Diastolic blood pressure 63 mm[Hg] Berry Lawson MD Work Phone: [employer] Work Phone: 02-01-2021 07:15-0400 Heart rate 82 /min Berry Lawson MD Work Phone: [employer] Work Phone: 02-01-2021 07:15-0400 Respiratory rate 18 /min Berry Lawson MD Work Phone: [employer] Work Phone: 02-01-2021 07:15-0400 SaO2% (BldA) [Mass fraction] 98 % Berry Lawson MD Work Phone: [employer] Work Phone: 02-01-2021 07:15-0400 Systolic blood pressure 110 mm[Hg] Berry Lawson MD Work Phone: [employer] Work Phone: 01-30-2021 16:54-0400 Body height 170.2 cm Berry Lawson MD Work Phone: [employer] Work Phone: 01-30-2021 16:54-0400 Body mass index (BMI) [Ratio] 38.53 kg/m2 Berry Lawson MD Work Phone: [employer] Work Phone: 01-30-2021 16:54-0400 Body weight 111.58 kg Berry Lawson MD Work Phone: [employer] Work Phone: 01-30-2021 14:27-0400 Diastolic blood pressure 66 mm[Hg] David Nash MD Work Phone: [employer] Work Phone: 01-30-2021 14:27-0400 Heart rate 93 /min David Nash MD Work Phone: [employer] Work Phone: 01-30-2021 14:27-0400 Respiratory rate 16 /min David Nash MD Work Phone: [employer] Work Phone: 01-30-2021 14:27-0400 SaO2% (BldA) [Mass fraction] 98 % David Nash MD Work Phone: [employer] Work Phone: 01-30-2021 14:27-0400 Systolic blood pressure 107 mm[Hg] David Nash MD Work Phone: [employer] Work Phone: 01-30-2021 09:51-0400 Body temperature 97.2 [degF] David Nash MD Work Phone: [employer] Work Phone: 01-26-2021 09:00-0400 Body temperature 98.2 [degF] Gamaliel Vickers DO Work Phone: [employer] Work Phone: 01-26-2021 09:00-0400 Diastolic blood pressure 77 mm[Hg] Gamalielkemar Vickers DO Work Phone: [employer] Phone: 01-26-2021 09:00-0400 Heart rate 90 /min Gamaliel Vickers [employer] Work Phone: [employer] Work Phone: 01-26-2021 09:00-0400 Respiratory rate 16 /min Gamaliel Vickers DO Work Phone: [employer] Work Phone: 01-26-2021 09:00-0400 SaO2% (BldA) [Mass fraction] 96 % Gamaliel Vickers DO Work Phone: [employer] Phone: 01-26-2021 09:00-0400 Systolic blood pressure 111 mm[Hg] Gamaliel Vickers Work Phone: [employer] Phone: 01-08-2021 07:35-0400 Body temperature 97.81 [degF] Gamaliel Vickers [employer] Work Phone: [employer] Phone: 01-08-2021 07:35-0400 SaO2% (BldA) [Mass fraction] 97 % Gaamliel Vickers [employer] Phone: [employer] Phone: 01-08-2021 07:29-0400 Diastolic blood pressure 77 mm[Hg] Gamaliel Vickers [employer] Phone: [employer] Phone: 01-08-2021 07:29-0400 Heart rate 87 /min Gamaliel Vickers [employer] Phone: [employer] Phone: 01-08-2021 07:29-0400 Respiratory rate 18 /min Gamaliel Vickers [employer] Phone: [employer] Phone: 01-08-2021 07:29-0400 Systolic blood pressure 123 mm[Hg] Gamaliel Vickers [employer] Phone: [employer] Phone: 01-07-2021 06:29-0400 Body height 170.2 cm Gamaliel Vickers [employer] Work Phone: [employer] Phone: 01-07-2021 06:29-0400 Body mass index (BMI) [Ratio] 40.68 kg/m2 Gamaliel Vickers [employer] Phone: [employer] Phone: 01-07-2021 06:29-0400 Body weight 117.8 kg Gamaliel Vickers [employer] Phone: [employer] Phone: 12-24-2020 10:33-0400 Body height 170.2 cm [facility] [employer] Phone: 12-24-2020 10:33-0400 Body mass index (BMI) [Ratio] 42.76 kg/m2 [facility] [employer] Phone: 12-24-2020 10:33-0400 Body temperature 97.7 [degF] [facility] [employer] Phone: 12-24-2020 10:33-0400 Body weight 123.83 kg [facility] [employer] Phone: 12-24-2020 10:33-0400 Diastolic blood pressure 76 mm[Hg] [facility] [employer] Phone: 12-24-2020 10:33-0400 Heart rate 71 /min [facility] [employer] Phone: 12-24-2020 10:33-0400 Respiratory rate 18 /min [facility] [employer] Phone: 12-24-2020 10:33-0400 SaO2% (BldA) [Mass fraction] 98 % [facility] [employer] Phone: 12-24-2020 10:33-0400 Systolic blood pressure 115 mm[Hg] [facility] [employer] Phone: 09-28-2020 08:40-0500 BP Diastolic 75 mm[Hg] [place] 09-28-2020 08:40-0500 BP Systolic 117 mm[Hg] Gamaliel Vickers [employer] 09-28-2020 08:40-0500 Pulse (Heart Rate) 84 /min Gamaliel Vickers [employer] [place] 09-28-2020 08:40-0500 Pulse Oximetry 100 % Gamaliel Vickers [employer] 09-28-2020 08:25-0500 Body Temperature 96.8 [degF] Gamaliel [place], [place] 09-28-2020 08:25-0500 Respiratory Rate 23 /min Gamaliel [place], [place] 09-28-2020 07:07-0500 BMI (Body Mass Index) 45.66 kg/m2 [place] 09-28-2020 07:07-0500 Body weight 132.22 kg Gamaliel [place], [place] 09-28-2020 07:07-0500 Height 170.2 cm Gamaliel [facility] [place] Encounters Encounter Date Encounter Type Care Provider Facility Start: 05-30-2025 End: 05-30-2025 Admission to same day surgery center Aaliyah Zamudio DO -[facility] [place] Start: 05-30-2025 End: 05-30-2025 ambulatory Jennie Durand DO Work Phone: [facility] Work Phone: Start: 05-16-2025 End: 05-16-2025 Patient encounter procedure Aaliyah Zamudio DO -Pre-Surgical Testing Work Phone: Start: 05-16-2025 End: 05-16-2025 ambulatory Jennie Sina Hameede DO Work Phone: [facility] Work Phone: Start: 05-11-2025 ambulatory Lindy Keen Facility :[facility] Start: 05-11-2025 [facility] Start: 05-04-2025 End: 05-04-2025 Office outpatient visit 25 minutes Aaliyah Jonathan Robb DO Work Phone: [facility] Comment on above: 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) Start: 05-04-2025 End: 05-04-2025 ambulatory AALIYAH ZAMUDIO Not Available Start: 04-26-2025 End: 04-26-2025 Patient encounter procedure Aaliyah [facility]udio DO [facility] Work Phone: Start: 04-26-2025 End: 04-26-2025 ambulatory Lindy Keen APRN Work Phone: [facility] Work Phone: Start: 04-21-2025 End: 04-25-2025 ambulatory Jak W [place] Facility:[facility] Start: 04-20-2025 Registered Recurring Nilsa Victor MD -[facility] Start: 04-13-2025 End: 04-13-2025 Office outpatient new 60 minutes Aaliyah Zamudio DO Work Phone: [facility] Comment on above: 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); Hypertrophy of breast Start: 04-13-2025 End: 04-13-2025 ambulatory AALIYAH Jonathan ROBB Not Available Start: 04-09-2025 End: 04-09-2025 Office outpatient visit 25 minutes Shazia Elise DIRECTOR LOAN Work Phone: [facility] Comment on above: Acute pharyngitis, u nspecified etiology (Primary Dx); Pharyngitis, unspecified etiology Start: 04-09-2025 End: 04-09-2025 ambulatory SHAZIA ELISE Not Available Start: 03-29-2025 End: 03-29-2025 ambulatory Sami Leed Facility:[facility] Start: 03-16-2025 End: 03-17-2025 Pre-admission assessment Jak Moshe Peace [facility] Start: 03-13-2025 End: 03-13-2025 ambulatory Jak W [place] Facility:[facility] Start: 03-09-2025 End: 03-09-2025 ambulatory Jennie Durand Facility:[facility] Start: 03-09-2025 End: 03-09-2025 Patient encounter procedure Babar Mayers [facility] Start: 03-03-2025 End: 03-03-2025 ambulatory Babar Mayers Facility:[facility] Start: 03-03-2025 End: 03-03-2025 Pain Management Babar Mayers [facility] Start: 03-02-2025 End: 03-02-2025 ambulatory MARII RICK Facility:[facility] Start: 03-02-2025 End: 03-02-2025 Patient encounter procedure MARII RIKC [facility] Start: 02-17-2025 End: 02-17-2025 Emergency department patient visit Bryan Avila [facility] Start: 02-16-2025 End: 02-16-2025 ambulatory Jak Moshe Peace Facility:[facility] Start: 02-16-2025 End: 02-16-2025 Patient encounter procedure Jak Peace [facility] Start: 02-16-2025 End: 02-16-2025 ambulatory MOLLY GREGORIO Facility:[facility] Start: 02-16-2025 End: 02-16-2025 Patient encounter procedure Jak Peace [facility] Start: 02-11-2025 End: 02-13-2025 Refill Tevin Carson DO Work Phone: [facility] Comment on above: Refill Request Start: 02-09-2025 End: 02-09-2025 ambulatory Fernandez Daniels Facility:[facility] Start: 02-09-2025 End: 02-09-2025 Patient encounter procedure MOLLY GREGORIO [facility] Start: 02-03-2025 End: 02-18-2025 Pre-admission assessment Babar Mayers [facility] Start: 02-03-2025 End: 02-03-2025 ambulatory MOLLYADWOA COHENNANDEZ Facility:[facility] Start: 01-27-2025 End: 01-27-2025 ambulatory Orlando Kate Facility:[facility] Start: 01-27-2025 End: 01-27-2025 Patient encounter procedure Orlando Kate [facility] Start: 01-24-2025 End: 01-24-2025 ambulatory Babar Mayers Facility:[facility] Start: 01-24-2025 End: 01-24-2025 Pain Management Babar Mayers [facility] Start: 01-19-2025 End: 01-20-2025 Pre-admission assessment Orlando Kate [facility] Start: 01-13-2025 End: 01-13-2025 ambulatory Orlando Kate Facility:[facility] Start: 01-13-2025 End: 01-13-2025 Patient encounter procedure Orlando Kate [facility] Start: 12-16-2024 End: 12-16-2024 Patient encounter procedure [facility] [place] Work Phone: Start: 12-16-2024 End: 12-16-2024 ambulatory NON STAFF [facility] Work Phone: Start: 12-14-2024 End: 12-15-2024 ambulatory David Zazueta Facility:[facility] Start: 12-14-2024 End: 12-15-2024 Patient encounter procedure David Zazueta [facility] Start: 12-12-2024 End: 12-12-2024 Patient encounter procedure [facility] [address] Work Phone: Start: 12-12-2024 End: 12-12-2024 ambulatory NON STAFF [facility] Work Phone: Start: 11-29-2024 End: 11-30-2024 ambulatory Jennie Durand Facility:[facility] Start: 11-28-2024 End: 11-28-2024 ambulatory Babar Mayers Facility:[facility] Start: 11-28-2024 End: 11-28-2024 Pain Management Babar Mayers [facility] Start: 11-18-2024 End: 11-18-2024 ambulatory KURT BALBUENA Facility:[facility] [place] [facility] Start: 11-15-2024 End: 11-15-2024 ambulatory Orlando Kate Facility:[facility] Start: 11-15-2024 End: 11-15-2024 Patient encounter procedure Orlando Kate [facility] Start: 11-11-2024 End: 11-11-2024 ambulatory David B Rhiew Facility:[facility] Start: 11-11-2024 End: 11-11-2024 Patient encounter procedure David B Rhiew [facility] Start: 11-02-2024 End: 11-02-2024 Patient encounter procedure Jennie Durand [facility] Start: 11-02-2024 End: 01-11-2025 ambulatory Jennie Durand Facility:[facility] Start: 11-01-2024 End: 11-11-2024 Pre-admission assessment Jennie Durand [facility] Start: 10-18-2024 End: 10-18-2024 Emergency department patient visit Jose Correia [facility] Start: 10-17-2024 End: 10-17-2024 [facility] Start: 10-17-2024 End: 10-17-2024 Patient encounter procedure [facility] [place] Comment on above: Population Health Na vigation Outreach (Mauricio Phan) Start: 10-14-2024 End: 10-14-2024 ambulatory KURT A ESHA [facility] Start: 09-30-2024 End: 09-30-2024 ambulatory KURT A ESHA [facility] [place] [facility] Start: 09-27-2024 End: 09-27-2024 Bamboo flowsheet Christopher Suzie DO Work Phone: [facility] Start: 09-27-2024 End: 09-27-2024 Bamboo flowsheet Christopher Suzie DO Work Phone: [facility] Start: 09-27-2024 End: 09-27-2024 Patient encounter procedure Christopher Suzie DO Work Phone: [facility] Comment on above: Myalgia Start: 09-27-2024 End: 09-27-2024 ambulatory CHRISTOPHER SUZIE Not Available Start: 09-27-2024 End: 09-27-2024 ambulatory KURT A ESHA Facility:[facility] Start: 09-26-2024 End: 09-26-2024 ambulatory KURT A ESHA Facility:[facility] Start: 09-21-2024 End: 09-21-2024 Clinisync Result Encounter Christopher Suzie DO Work Phone: [facility] Unsolicited Start: 09-21-2024 End: 09-21-2024 Clinisync Result Encounter Christopher Suzie DO Work Phone: [facility] Unsolicited Start: 09-21-2024 End: 09-21-2024 Office outpatient visit 25 minutes Christopher Suzie DO Work Phone: [facility] Comment on above: Ataxia (Primary Dx); Myalgia Start: 09-21-2024 End: 09-21-2024 ambulatory CHRISTOPHER SUZIE Not Available Start: 09-20-2024 End: 09-20-2024 Lab Drop off KURT BALBUENA [facility] Start: 09-20-2024 End: 09-20-2024 ambulatory KURT BALBUENA Facility:[facility] [facility] Start: 09-16-2024 ambulatory KURT BALBUENA Facility :[facility] [place] Start: 09-15-2024 End: 09-15-2024 Emergency department patient visit [facility] Work Phone: Start: 09-15-2024 End: 09-15-2024 ambulatory TIFFANIE MARADIAGA Facility:[facility] Start: 09-13-2024 End: 09-13-2024 Subsequent hospital visit by physician Clarita Smith Echo/Vasc Room [facility] Comment on above: Angina pectoris; Shortness of breath; Palpitations; Family history of ischemic heart disease; Primary hypertension Start: 09-13-2024 End: 09-13-2024 ambulatory [facility] Start: 09-04-2024 End: 09-05-2024 ambulatory Tevin Carson DO Work Phone: Family Medicine Comment on above: Blood work Start: 08-25-2024 End: 08-25-2024 ambulatory Mary Jo Trinidad RN Work Phone: [employer] Start: 08-25-2024 End: 08-25-2024 Patient encounter procedure Mary Jo Trinidad RN Work Phone: [employer] Comment on above: ACM EDYTA RN ( ED Utilization Review per request of payor/) Start: 08-18-2024 End: 08-18-2024 Patient encounter procedure TIFFANIE MARADIAGA [facility] Start: 08-17-2024 End: 08-17-2024 Refill Tevin Carson DO Work Phone: Family Medicine Comment on above: Med Change Request Start: 08-08-2024 End: 08-08-2024 Office outpatient new 45 minutes Aleah Howard MD Work Phone: [facility] Comment on above: Angina pectoris; Shortness of breath; Palpitations; Family history of ischemic heart disease; Primary hypertension; Current smoker; BMI 29.0-29.9,adult Start: 08-08-2024 End: 08-08-2024 ambulatory [facility] Start: 07-26-2024 End: 07-26-2024 ambulatory TEVIN CARSON Facility:[facility] Start: 07-25-2024 End: 07-25-2024 ambulatory TEVIN CARSON Facility:[facility] Start: 07-25-2024 End: 07-25-2024 Office outpatient visit [...] Start: 07-11-2024 End: 07-11-2024 ambulatory ABI ASIF Facility:[facility] Start: 07-11-2024 End: 07-11-2024 Subsequent hospital visit by physician Procedure Mammo [facility] Comment on above: Abnormal mammogram o f left breast [R92.8] Start: 07-04-2024 End: 07-04-2024 ambulatory TEVIN YAMILETH Facility:[facility] Start: 07-04-2024 End: 07-04-2024 Patient encounter procedure Fatuma Tyler APRN.CNP Work Phone: [facility] Comment on above: Abnormal mammogram ( [...] breast [N63.21] Start: 07-03-2024 Non-patient / Non-visit [facility] Work Phone: Start: 07-01-2024 End: 07-01-2024 ambulatory TEVIN CARSON Facility:[facility] Start: 07-01-2024 End: 07-01-2024 Office outpatient visit 25 minutes Tevin Carson DO Work Phone: Family Medicine Comment on above: Chest pain, unspecif ied type (Primary Dx); Palpitations; Bipolar affective disorder in remission (HCC); History of substance abuse (HCC); Borderline personality disorder (HCC); Serum calcium elevated Start: 06-30-2024 End: 07-01-2024 Telephone encounter Fatuma Tyler APRN.CNP Work Phone: [facility] Comment on above: Appointment Start: 05-30-2024 End: 05-30-2024 ambulatory Lenora Yee RN Work Phone: [employer] Comment on above: CARMELINA LAN RN ( ED Utilization review per request of payer) Start: 04-26-2024 ambulatory Elia mcdowell DO Work Phone: Family Medicine Start: 03-08-2024 End: 03-08-2024 Emergency department patient visit Alexis Shukla [facility] Start: 03-08-2024 End: 03-08-2024 Subsequent hospital visit by physician Mri [facility] [place] (Lg Bore/1.5t) Radiology MRI Comment on above: 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 ] Start: 03-08-2024 End: 03-08-2024 ambulatory LEONELA AGUIRRE Facility:[facility] Start: 03-08-2024 End: 03-08-2024 Patient [...] Start: 03-08-2024 End: 03-08-2024 Patient encounter status Eliakeshav Hanseneder DO Work Phone: [facility] Work Phone: Start: 02-25-2024 End: 02-25-2024 ambulatory ELIA BAIRES Facility:[facility] Start: 01-13-2024 End: 01-13-2024 ambulatory [facility] Start: 01-05-2024 Telephone encounter Eliafredrick Gerard liane DO Work Phone: Family Medicine Start: 01-04-2024 End: 01-04-2024 ambulatory ELIA BAIRES Facility:[facility] Start: 01-04-2024 End: 01-04-2024 Patient encounter procedure Elia Cardenas Baires DO Work Phone: Family Medicine Comment on above: Panic disorder (Prim masoud Dx); Borderline personality disorder (HCC); Bipolar affective disorder in remission (HCC); Chronic alcoholism in remission (HCC); Routine health maintenance Start: 01-04-2024 End: 01-04-2024 Patient encounter status Eliakeshav Hanseneder DO Work Phone: [facility] Start: 12-31-2023 End: 12-31-2023 Emergency department patient visit DO Jennie Durand Work Phone: [facility] Work Phone: Start: 12-25-2023 ambulatory SELF REFERRAL Facility: [facility] Start: 12-24-2023 End: 12-24-2023 Emergency department patient visit DO Jennie Durand Work Phone: [facility] Work Phone: Start: 2023 ambulatory Otto Larsen Facility:[facility] Start: 12-10-2023 End: 12-10-2023 Emergency department patient visit DO Jennie Durand Work Phone: [facility] Work Phone: Start: 12-09-2023 End: 12-09-2023 ambulatory Jennie Durand Facility:[facility] Start: 12-09-2023 End: 12-09-2023 Patient encounter procedure Jennie Durand [facility] Start: 10-23-2023 End: 10-26-2023 ambulatory [facility] Start: 10-12-2023 End: 10-15-2023 ambulatory [facility]ALIEL [facility] Start: 09-18-2023 End: 09-18-2023 Subsequent hospital visit by physician Gamaliel Vickers DO Work Phone: [facility] Start: 08-31-2023 End: 09-01-2023 ambulatory LEONELA AGUIRRE Facility:[facility] Start: 08-28-2023 End: 08-28-2023 ambulatory Imad Asaad Other [facility] [employer] Other Start: 08-28-2023 Telephone encounter Imruth Asaad [facility] [employer] Start: 08-18-2023 End: 08-21-2023 ambulatory [facility] Start: 08-15-2023 End: 08-15-2023 Emergency department patient visit DO Jennie Durand Work Phone: [facility] Work Phone: Start: 08-14-2023 End: 08-14-2023 Emergency department patient visit DO Jennie Durand Work Phone: [facility] Work Phone: Start: 08-13-2023 End: 08-13-2023 ambulatory Imad Asaad Other [employer] Other Start: 08-13-2023 Office outpatient ne w 45 minutes Imad Asaad [facility] Start: 08-12-2023 End: 08-15-2023 ambulatory [facility] Start: 07-08-2023 End: 07-08-2023 ambulatory Ania Tegan Other [employer] Other Start: 07-08-2023 Office outpatient ne w 20 minutes Ania Tegan [facility] Start: 07-03-2023 End: 07-03-2023 Emergency department patient visit DO Jennie Durand Work Phone: [facility] Work Phone: Start: 07-02-2023 End: 07-02-2023 Emergency department patient visit Bakari Chester [facility] Start: 06-10-2023 End: 06-10-2023 ambulatory EILEEN ALVAREZ Facility:[facility] Start: 06-09-2023 End: 06-09-2023 Emergency department patient visit Alexis Shukla Facility:[facility] Start: 06-03-2023 Refill Eileen Alvarez MD Work Phone: Neurology Comment on above: Refill Request Start: 03-19-2023 End: 03-19-2023 ambulatory DIRECTOR LOAN GANESH CORDERO Facility:[facility] Start: 03-19-2023 End: 03-19-2023 Patient encounter procedure GANESH CORDERO [facility] Start: 01-29-2023 End: 01-29-2023 Subsequent hospital visit by physician Marixa [facility] Vicky (1.5t) Work Phone: Radiology Comment on above: 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] Start: 01-15-2023 End: 01-15-2023 Emergency department patient visit Bakari Chester [facility] Start: 01-02-2023 End: 01-02-2023 Patient encounter procedure Nakia Mcqueen [facility] Start: 12-12-2022 Refill Eileen Alvarez MD Work Phone: Neurology Comment on above: Refill Request Start: 12-05-2022 End: 12-05-2022 Admission to same day surgery center Gal Das [facility] Start: 11-21-2022 End: 11-21-2022 Patient encounter procedure Gal Das [facility] Start: 11-20-2022 End: 11-20-2022 ambulatory EILEEN ALVAREZ Facility:[facility] Start: 11-20-2022 End: 11-20-2022 Patient encounter procedure Eileen Alvarez MD Work Phone: Neurology Comment on above: Idiopathic intracran ial hypertension (Primary Dx); Depression, unspecified depression type; Primary hypertension; Hx of gastric bypass; H/O foot surgery Start: 11-03-2022 End: 11-03-2022 Patient encounter procedure Nakia Mcqueen [facility] Start: 10-30-2022 End: 10-30-2022 ambulatory STEFANIE SINGH . Facility: Start: 10-23-2022 End: 10-23-2022 Lab Drop off Gal Das [facility] Start: 10-14-2022 End: 10-14-2022 Patient encounter procedure Rita Loja [facility] Start: 09-24-2022 End: 09-24-2022 Patient encounter procedure Aimee Walker [facility] Start: 08-22-2022 End: 08-22-2022 Patient encounter procedure Rahul Salinas [facility] Start: 08-19-2022 End: 08-19-2022 ambulatory DO Jennie Durand Work Phone: [facility] Work Phone: Start: 08-19-2022 End: 08-19-2022 Patient encounter procedure DO Jennie Durand Work Phone: [facility] Start: 08-18-2022 End: 08-18-2022 ambulatory RAMSES MARTINEZ . Facility:[facility] Start: 08-18-2022 End: 08-18-2022 Emergency department patient visit Alexis Shukla [facility] Start: 08-16-2022 End: 08-16-[address] NEW DREW . Facility:[facility] Start: 08-12-2022 ambulatory Facility:[id number] Start: 08-11-2022 End: 08-12-2022 Evaluation and management of inpatient DO Jennie Durand Work Phone: [facility] [address] [facility] Start: 08-11-2022 End: 08-12-2022 observation encounter DO Jennie Andino Durand Work Phone: [facility] Work Phone: Start: 08-11-2022 End: 08-11-[address] WEI PHAM Facility:[facility] Start: 08-08-2022 End: 08-08-2022 Emergency department patient visit Bakarisamuel Chester [facility] Start: 07-21-2022 End: 07-21-2022 Patient encounter procedure Aimee Walker [facility] Start: 07-19-2022 End: 07-19-[address] DOCTOR CAMARILLO Facility:[facility] Start: 07-18-2022 Telephone encounter Eduin Mckee [facility] Comment on above: Appointment Start: 06-12-2022 End: 06-12-[address] CAROLYNE RALPH Facility:H1 Start: 06-10-2022 End: 06-10-2022 Patient encounter procedure Alexis Rivers [facility] Start: 05-30-2022 End: 05-30-2022 ambulatory GABRIELA CAMARGO Facility:H1 Start: 05-13-2022 End: 05-13-2022 Patient encounter procedure Alexis Rivers [facility] [place] Start: 04-22-2022 End: 04-22-2022 Patient encounter procedure Aimee Walker [facility] Start: 04-21-2022 End: 04-21-2022 Patient encounter procedure Aimee Walker [facility] Start: 04-20-2022 End: 04-20-2022 Emergency department patient visit Jose Kaurelen [facility] Start: 04-07-2022 End: 04-07-[address] CLINTON Kaplan Facility:H1 Start: 04-03-2022 End: 04-03-2022 Emergency department patient visit Larry Baker [facility] Start: 04-03-2022 End: 04-03-2022 Well adult monitoring check done Larry Baker [facility] Start: 02-12-2022 End: 02-12-2022 Patient encounter procedure Amee Gonzalez PA-C Work Phone: Otolaryngology Comment on above: Burning tongue (Prim masoud Dx); Irritation of oral cavity Start: 02-08-2022 End: 02-08-2022 ambulatory STEFANIE SINGH . Facility:H1 Start: 02-06-2022 End: 02-06-2022 Patient encounter procedure Aimee Walker [facility] Start: 01-30-2022 End: 01-30-2022 ambulatory GABRIELA CAMARGO Facility:H1 Start: 01-29-2022 End: 01-29-2022 Patient encounter procedure Aimee Walker [facility] Start: 01-27-2022 ambulatory Eduin Mckee MD Work Phone: Plastic Surgery Comment on above: questions Start: 01-10-2022 Telephone encounter Eduin marx MD Work Phone: Plastic Surgery Comment on above: Patient Question; Ap pointment Start: 01-09-2022 End: 01-09-2022 Patient encounter procedure Aimee Walker [facility] Start: 12-27-2021 Telephone encounter Eduin marx MD Work Phone: Plastic Surgery Comment on above: Orders Scheduling Start: 11-16-2021 End: 11-17-[address] WILEY HELM Facility:H1 Start: 02-04-2021 End: 02-06-2021 Subsequent hospital visit by physician Chaitanya Cat Scan Room [facility] CT Scan Comment on above: Omental infarction ( HCC) Start: 01-30-2021 End: 02-01-2021 Evaluation and management of inpatient Berry Lawson MD Work Phone: [facility] Ortho/Med Surg Comment on above: Surgery, elective (P rimary Dx); Omental infarction (HCC) Start: 01-30-2021 End: 01-30-2021 Emergency department patient visit David Nash MD Work Phone: [facility] ED Comment on above: Generalized abdomina [...] Start: 01-03-2021 End: 01-04-2021 ambulatory JENNIE DURAND [facility] Start: 01-03-2021 End: 01-03-2021 Patient encounter status Edgardo Schedule EDGARDO Covid Scre ening Start: 01-03-2021 End: 01-03-2021 Subsequent hospital visit by physician Edgardo Mcclendon Screening Schedule EDGARDO Covid Screening Comment on above: Preop testing (Prima ry Dx) Start: 12-24-2020 End: 12-28-2020 Subsequent hospital visit by physician Christiane Salinas Xr [facility] Radiology Comment on above: Arrived Start: 11-01-2020 End: 11-03-2020 Subsequent hospital visit by physician Chaitanya Jett Radiologist [facility] Radiology Comment on above: Gastroesophageal ref lux disease with esophagitis without hemorrhage Start: 10-26-2020 End: 10-26-2020 Subsequent hospital visit by physician Lyle Covid Screening Schedule LYLE Covid Screening Comment on above: Preoperative testing Start: 09-28-2020 End: 09-28-2020 Subsequent hospital visit by physician Gamaliel Vickers Work Phone: [place] Start: 09-24-2020 End: 09-28-2020 Subsequent hospital visit by physician Chaitanya Covid19 Pat Screening Schedule MTHZ PRE ADMIT Comment on above: Preoperative testing Start: 11-01-2015 Patient encounter procedure LINDY COTE Facility:[facility] Procedures Date Procedure Procedure Detail Performing Clinician Start: 05-30-2025 Lumpectomy of left breast Jennie Durand DO Work Phone: Start: 04-26-2025 Mammography of left breast Lindy Keen APRN Work Phone: Start: 04-26-2025 Ultrasonography of l eft breast Lindy Keen APRN Work Phone: Start: 04-09-2025 Iadna streptococcus group a amplified probe tq Shazia Elise DIRECTOR LOAN Work Phone: Start: 03-03-2025 Injection of facet [...] 03-08-2024 H/O: hysterectomy History of hysterectomy Elia Hanseneder DO Work Phone: Start: 03-08-2024 3d rendering w/interp&postproc diff work station Leonela Aguirre MD Work Phone: Start: 03-08-2024 Mri abdomen w/o & w/contrast material Leonela Aguirre MD Work Phone: Start: 01-04-2024 Drug tst prsmv instr mnt chem analyzers pr date Elia Ronald Mechelle SNOWDEN Work Phone: Start: 12-10-2023 Plain chest X-ray DO Am rosy Durand Work Phone: Start: 08-15-2023 Computed tomography of abdomen and pelvis with contrast DO Jennie Hameede Work Phone: Start: 01-29-2023 Mra head w/o & w/con trast material Eileen Alvarez MD Work Phone: Start: 12-05-2022 Hysterectomy Gal Ochoa en Start: 08-12-2022 MRI of head DO Jennie carlos Work Phone: Start: 08-12-2022 MRI venography DO Jennie xie Work Phone: Start: 02-04-2021 Ct abdomen & pelvis w/contrast material Gamaliel Keshav Vickers DO Work Phone: Start: 02-01-2021 BASIC [...] w/byp tian-en-y limb <150 cm Gamaliel Gastelum Vickers [employer] Work Phone: Start: 01-07-2021 Urine test visual color cmprsn meths Gamaliel Gastelum [employer] Work Phone: Start: 12-24-2020 Assay of nicotine Enmanuel Gastelum [employer] Work Phone: Start: 12-24-2020 Basic metabolic pane l calcium total Gamaliel Gastelum Vickers [employer] Work Phone: Start: 12-24-2020 Radiologic exam ches t 2 views Gamaliel Gastelum [employer] Work Phone: Start: 12-24-2020 Ecg routine ecg w/le ast 12 lds trcg only w/o i&r Gamaliel Gastelum [employer] Work Phone: Start: 12-24-2020 EKG REPORT Hpf Scanni ng Start: 11-01-2020 Radex upper gi w/wo glucagon/delay imges w/o kub Gamaliel Gastelum [employer] Work Phone: Start: 09-24-2020 COVID-19 Obdulio Matthewu [...] Jennie Durand Work Phone: Lumbar puncture to miguel perez intracranial pressure Rhaul Salinas Plan of Treatment Date Care Activity Detail Author Start: 2038 Zoster Vaccines (1 of 2) Zoster Vaccines (1 of 2) [facility] Start: 02-24-2027 Diabetes mellitus screening Diabetes Screening [facility] Start: 07-25-2025 Annual PCP Team Chronic Disease Visit Annual PCP Team Chronic Disease Visit [facility] Start: 07-25-2025 BP Controlled (<130/80) BP Controlled (<130/80) [facility] Start: 07-01-2025 Annual PCP Team Chronic Disease Visit Annual PCP Team Chronic Disease Visit [facility] Start: 07-01-2025 BP Controlled (<130/80) BP Controlled (<130/80) [facility] Start: 06-08-2025 End: 06-08-2025 Patient encounter procedure 06/08/2025 10:15 AM EDT Office Visit [facility] [address] [place] [address] Aaliyah Zamudio, DO [address] [place] [address] [facility] Start: 05-30-2025 Mammography of left breast specimen MM surgical specimen LT [facility] Start: 05-30-2025 MG Breast specimen - left Views [facility] Start: 05-30-2025 [facility] Start: 05-30-2025 [facility] Start: 05-15-2025 Influenza vaccination [facility] Start: 05-01-2025 End: 05-01-2025 Patient encounter procedure 05/01/2025 2:15 PM EDT Office Visit [facility] [address] [place] [id number] Aaliyah Zamudio, DO [address] [place] [address] [facility] Start: 04-13-2025 End: 06-13-2026 DBT Breast - left diagnostic Left diagnostic mammogram with tomosynthesis Imaging Routine Pseudoangiomatous stromal hyperplasia of breast Hypertrophy of breast Expected: 04/13/2025, Expires: 06/13/2026 [facility] Work Phone: Comment on above: Expected: 04/13/2025, Expires: Start: 04-13-2025 End: 06-13-2026 US Breast - left limited Left breast US limited Imaging Routine Pseudoangiomatous stromal hyperplasia of breast Hypertrophy of breast Expected: 04/13/2025, Expires: 06/13/2026 [facility] Comment on above: Expected: 04/13/2025, Expires: Start: 04-13-2025 End: 04-13-2025 Patient encounter procedure 04/13/2025 10:[address] [facility] [address] [place] [address] Aaliyah Zamudio, DO [address] [facility] [address] [place] [address] [facility] Start: 03-08-2025 Annual PCP Team Chronic Disease Visit Annual PCP Team Chronic Disease Visit [facility] Start: 03-08-2025 BP Controlled (<130/80) BP Controlled (<130/80) [facility] Start: 03-08-2025 Urine microalbumin profile DTaP,Tdap,Td Vaccine (1 - Tdap) [facility] Comment on above: Postponed from 12/18/2007 (Declined at t his time) Start: 01-03-2025 Annual PCP Team Chronic Disease Visit Annual PCP Team Chronic Disease Visit [facility] Start: 12-12-2024 Aldolase measurement [facility] Start: 12-12-2024 Antibody to Scl-70 measurement [facility] Start: 12-12-2024 Hemolytic complement CH50 level [facility] Start: 12-12-2024 CERTIFIED RESIDENTIAL MEDICATION AIDE antibody measurement [facility] Start: 12-12-2024 [facility] Start: 10-20-2024 End: 10-20-2024 Patient encounter procedure 10/20/2024 8:40 AM EST Office Visit CYNDI JUDD [address] [place] [phone] Mague FineLEONOR [address] [place] [phone] [facility] JUDD Start: 10-04-2024 End: 10-04-2024 Patient encounter procedure 10/04/2024 12:40 PM EST Appointment Radiology MRI [address] [place] [address] MRI BREAST WO/W IVCON Radiology MRI Comment on above: MRI BREAST WO/W IVCON Start: 09-27-2024 End: 09-27-2024 Patient encounter procedure [facility] Comment on above: Arrived Start: 09-21-2024 End: 09-21-2025 EMG 2 Extremities EMG 2 Extremities Neurology Routine Myalgia Expected: 09/21/2024, Expires: 09/21/2025 [facility] Work Phone: Comment on above: Expected: 09/21/2024, Expires: Start: 09-21-2024 End: 09-21-2025 MR Brain WO and W contrast IV MR brain w and wo contrast routine Imaging Routine Ataxia Expected: 09/21/2024, Expires: 09/21/2025 [facility] Comment on above: Expected: 09/21/2024, Expires: [...] procedure 09/19/2024 3:00 PM EST Office Visit [facility] [address] [facility] [address] [place] [address] Aleah Howard MD [address] [facility] [address] [place] [address] [facility] Start: 09-13-2024 End: 09-13-2024 [facility] Comment on above: ER Follow up Start: 08-24-2024 End: 08-24-2024 ambulatory 08/24/2024 11:20 AM EST [facility] [address] [place] [address] [place] [address] [place], [place] [phone] Return in about 4 weeks (around 08/22/2024) Family Medicine Comment on above: Return in about 4 weeks (around ) Start: 08-23-2024 End: 08-23-2024 Patient encounter [facility] Start: 08-08-2024 End: 08-08-2025 NM Heart Perfusion W stress and W radionuclide IV Nuclear Stress Test Cardiac Nuclear Medicine Routine Angina pectoris Shortness of breath Palpitations Family history of ischemic heart disease Primary hypertension Expected: 08/08/2024 (Approximate), Expires: 08/08/2025 [facility] Service Area Work Phone: Comment on above: Expected: 08/08/2024 (Approximate), Expi res: 08/08/2025 Start: 08-08-2024 End: 08-08-2026 US Heart Transthoracic Transthoracic Echo Complete Echocardiography Routine Angina pectoris Shortness of breath Palpitations Family history of ischemic heart disease Primary hypertension Expected: 08/08/2024 (Approximate), Expires: 08/08/2026 [facility] Work Phone: Comment on above: Expected: 08/08/2024 (Approximate), Expi res: 08/08/2026 Start: 08-05-2024 End: 08-05-2024 ambulatory [facility] Comment on above: Fhx of pancreatic cancer, Phx of pancrea tic mass Action taken: Marked in OnBase for Schedulers Start: 07-29-2024 End: 07-29-2024 Patient encounter procedure 07/29/2024 2:40 PM EST Office Visit Family Medicine [address] [place], [place] [phone] [place] [address] [place], [place] [phone] Return in about 4 weeks (around 07/29/2024) Family Medicine Comment on above: Return in about 4 weeks (around 07/29/20) Start: 07-27-2024 End: 07-27-2024 Patient encounter procedure 07/27/2024 11:30 AM EST Office Visit [facility] [place] [address] [address] Kiera Gilmore DO [address] [place] [address] Teresa David, 07/27/24, 1130am, ty per email Breast Center Comment on above: Teresa David, 07/27/24, 1130am, ty per email Start: 07-26-2024 End: 07-26-2024 ambulatory 07/26/2024 8:45 AM EST Results Only [facility] [address] [place] [address] [place] [address] Iron deficiency anemia, unspecified iron deficiency anemia type [D50.9] [facility] Comment on above: Iron deficiency anemia, unspecified iron deficiency anemia type [D50.9] Start: 07-25-2024 End: 07-25-2024 Patient encounter procedure 07/25/2024 3:00 PM EST Office Visit Family Medicine [address] [place] [address] [place] [address] [place] [address] H f/u Family Medicine Comment on above: H f/u Start: 07-25-2024 End: 10-24-2024 CBC W Auto Differential panel - Blood COMPLETE BLOOD COUNT AND DIFFERENTIAL Lab Routine Iron deficiency anemia, unspecified iron deficiency anemia type Expected: 07/25/2024, Expires: 10/24/2024 [facility] Comment on above: Expected: 07/25/2024, Expires: Start: 07-25-2024 End: 10-24-2024 Ferritin [Mass/volume] in Serum or Plasma FERRITIN Lab Routine Iron deficiency anemia, unspecified iron deficiency anemia type Expected: 07/25/2024, Expires: 10/24/2024 [facility] Work Phone: Comment on above: Expected: 07/25/2024, Expires: Start: 07-25-2024 End: 10-24-2024 Iron and Iron binding capacity panel - Serum or Plasma IRON AND TIBC Lab Routine Iron deficiency anemia, unspecified iron deficiency anemia type Expected: 07/25/2024, Expires: 10/24/2024 [facility] Comment on above: Expected: 07/25/2024, Expires: Start: 07-11-2024 End: 07-11-2024 Patient encounter procedure 07/11/2024 8:30 AM EDT Appointment Mammography [address] [place] [address] lt breast us core bx Mammography Comment on above: lt breast us core bx Start: 07-04-2024 End: 07-04-2024 Patient encounter procedure [facility] Comment on above: 11:30A IMAGING; Breast lump with pain x 1 yr; imaging done at [facility](pt hand caring images); Bx recommended by PCP; blood nipple discharge- spontaneous- last noticed 8 months ago Breast lump with suraj n x 1 yr; imaging done at [facility](pt hand caring images); Bx recommended by PCP; blood nipple discharge- spontaneous- last noticed 8 months ago Start: 07-01-2024 End: 09-30-2024 25-hydroxyvitamin D3 [Mass/volume] in Serum or Plasma VITAMIN D 25 HYDROXY Lab Routine Serum calcium elevated Expected: 07/01/2024, Expires: 09/30/2024 [facility] Comment on above: Expected: 07/01/2024, Expires: Start: 07-01-2024 End: 09-30-2024 Comprehensive metabolic 2000 panel - Serum or Plasma COMPREHENSIVE METABOLIC PANEL Lab Routine Serum calcium elevated Expected: 07/01/2024, Expires: 09/30/2024 [facility] Comment on above: Expected: 07/01/2024, Expires: Start: 07-01-2024 End: 09-30-2024 Parathyrin.intact [Mass/volume] in Serum or Plasma PTH INTACT Lab Routine Serum calcium elevated Expected: 07/01/2024, Expires: 09/30/2024 [facility] Comment on above: Expected: 07/01/2024, Expires: Start: 07-01-2024 End: 07-01-2024 Patient encounter procedure 07/01/2024 11:00 AM EDT Office Visit Family Medicine [id number] [place] [address] [place] [address] [place] [phone] est care. Updated PCP per navigation rules. Family Medicine Comment on above: est care. Updated PCP per navigation rul es. Start: 05-31-2024 End: 05-31-2024 Patient encounter procedure 05/31/2024 11:00 AM EDT Office Visit Family Medicine [address] [place] [address] Lisha Bianchi, FELT COVERER.POLICY ADVISER [address] [place] [address] ED follow up Family Medicine Comment on above: ED follow up Start: 05-24-2024 End: 05-24-2024 Patient encounter procedure 05/24/2024 11:15 AM EDT Office Visit Endocrinology [address] [place] [phone] Austin Leon, CEDRIC.POLICY ADVISER [address] [place] [address] Class 1 obesity due to excess calories without serious comorbidity with body ma Endocrinology Comment on above: Class 1 obesity due to excess calories w ithout serious comorbidity with body ma Start: 05-15-2024 COVID-19 Vaccine ( season) COVID-19 Vaccine () [facility] Start: 05-15-2024 COVID-19 Vaccine ( season) COVID-19 Vaccine () [facility] Start: 05-15-2024 Influenza vaccination [facility] Start: 03-01-2024 End: 03-01-2024 Patient encounter procedure 03/01/2024 11:20 AM EDT Appointment Radiology [address] [place] [address] MRI Panc/Tanmay Wo/W [facility] Radiology Comment on above: MRI Panc/Tanmay Wo/W Ivcon Start: 01-06-2024 End: 01-06-2024 ambulatory 01/06/2024 8:30 AM EDT Results Only [facility] [address] [place] [address] [place] [address] [facility] Start: 01-04-2024 End: 04-04-2024 CBC panel - Blood by Automated count COMPLETE BLOOD COUNT Lab Routine Routine health maintenance Expected: 01/04/2024, Expires: 04/04/2024 [facility] Work Phone: Comment on above: Expected: [...] on above: Expected: 01/04/2024, Expires: Start: 12-10-2023 [facility] Start: 09-18-2023 End: 09-18-2023 Egd transoral biopsy single/multiple EGD BIOPSY Gastroesophageal reflux disease, unspecified whether esophagitis present Obesity (BMI 30-39.9) 09/18/2023 8:14 AM [facility] [employer] [facility] Start: 05-15-2023 COVID-19 Vaccine () COVID-19 Vaccine () [facility] Start: 05-15-2023 Influenza vaccination Influenza Vaccine (#1) [facility] Start: 04-14-2023 Influenza vaccination Flu vaccine (#1) [facility] Start: 08-19-2022 Cerebrospinal fluid culture [facility] Start: 08-19-2022 End: 08-19-2022 [facility] Start: 08-12-2022 [facility] Start: 08-12-2022 Glucose [Mass/volume] in Cerebral spinal fluid [facility] Start: 08-12-2022 Protein [Mass/volume] in Cerebral spinal fluid [facility] Start: 08-12-2022 [facility] Start: 08-11-2022 Hospital admission [facility] Start: 08-11-2022 Referral to neurologist [facility] Start: 08-11-2022 [facility] Start: 05-15-2022 Influenza vaccination [facility] [...] Office Visit Bariatrics Gamaliel Vickers DO [address] [place] [phone] [facility] Invasive Bariatric Surg Start: 02-20-2021 End: 02-20-2021 Patient encounter procedure 02/20/2021 Office Visit BariatricGamaliel Robledo DO [address] [place] [phone] [facility] Start: 01-18-2021 End: 01-18-2021 Office Visit 01/18/2021 Office Visit Bariatrics Gamaliel Vickers, DO [address] [facility] [address] [place] [phone] [facility] Invasive Bariatric Surg Start: 01-07-2021 End: 01-07-2021 Hospital Encounter [facility] Comment on above: XI LAPAROSCOPIC ROBOTIC GASTRIC BYPASS R OUX-EN-Y, LIVER BIOPSY, EGD- GI UNIT SCHEDULED. Start: 01-03-2021 End: 01-03-2021 Office Visit [facility] Invasive Bariatric Surg Comment on above: Arrived Start: 12-31-2020 End: 12-31-2021 COVID-19 COVID-19 Lab Routine Preop testing Expected: 12/31/2020, Expires: 12/31/2021 [facility] Work Phone: Comment on above: Expected: 12/31/2020, Expires: Start: 11-21-2020 End: 11-21-2020 Office Visit 11/21/2020 Office Visit Bariatrics Ganesh Cordero, FELT COVERER - POLICY ADVISER [address] [facility] [address] [place] [phone] [facility] Start: 11-01-2020 End: 11-01-2020 Appointment 11/01/2020 Appointment Radiology Radiologist, Chaitanya Jett [facility] Start: 10-24-2020 End: 10-24-2020 Office Visit [facility] BAR[facility] Start: 09-26-2020 Annual Wellness Visit (AWV) Annual Wellness Visit (AWV) [facility] [place], [place] Start: 2018 HPV TESTING HPV TESTING [facility] Start: 2018 Screening for malignant neoplasm of cervix [facility] Start: 06-10-2016 Screening for malignant neoplasm of cervix [facility] Start: 2010 DTaP/Tdap/Td Vaccines (1 - Tdap) DTaP/Tdap/Td Vaccines (1 - Tdap) [facility] Start: 2009 PAP TESTING PAP TESTING [facility] Start: 2009 Screening for malignant neoplasm of cervix [facility] Start: 12-18-2007 DTaP/Tdap/Td vaccine (1 - Tdap) DTaP/Tdap/Td vaccine (1 - Tdap) [facility] Start: 12-18-2007 Pneumococcal vaccination Pneumococcal Vaccine (1 of 2 - PCV) [facility] Start: 12-18-2007 Pneumococcal Vaccine: Pediatrics and At-Risk Adult Patients (1 of 2 - PCV) Pneumococcal Vaccine: Pediatrics and At-Risk Adult Patients (1 of 2 - PCV) [facility] Start: 12-18-[address] [facility] Start: 2006 ANNUAL PCP TEAM CHRONIC DISEASE VISIT ANNUAL PCP TEAM CHRONIC DISEASE VISIT [facility] Start: 2006 BP CONTROLLED (<130/80) BP CONTROLLED (<130/80) [facility] in Start: 2006 HEPATITIS C SCREENING HEPATITIS C SCREENING [facility] Start: 2006 Hepatitis C screening [facility] Start: 2006 HIV SCREENING HIV SCREENING [facility] Start: 2006 HIV screening HIV Screening [facility] Start: 2004 COVID-19 Vaccine (1) COVID-19 Vaccine (1) [employer] Phone: Start: 12-18-2003 HIV screening HIV screen [facility] Start: 2001 Varicella vaccination Varicella Vaccines (1 of 2 - 13+ 2-dose series) [facility] Start: 2000 Adult depression screening assessment DEPRESSION SCREENING [facility] Start: 2000 COVID-19 Vaccine (1) COVID-19 Vaccine (1) [employer] Phone: Start: 2000 Depression Monitoring Depression Monitoring [facility] Start: 12-10-2000 Hepatitis B Vaccine (2 of 3 - 3-dose series) Hepatitis B Vaccine (2 of 3 - 3-dose series) [facility] Start: 12-10-2000 Hepatitis B Vaccines (2 of 3 - 3-dose series) Hepatitis B Vaccines (2 of 3 - 3-dose series) [facility] Start: 1994 PNEUMOCOCCAL (1 - PCV) PNEUMOCOCCAL (1 - PCV) [facility] Start: 1994 Pneumococcal 0-64 years Vaccine (1 - PCV) Pneumococcal 0-64 years Vaccine (1 - PCV) [facility] Start: 1994 Pneumococcal vaccination [facility] Start: 1994 Pneumococcal Vaccine: Pediatrics (0 to 5 Years) and At-Risk Patients (6 to 64 Years) (1 of 2 - PCV) Pneumococcal Vaccine: Pediatrics (0 to 5 Years) and At-Risk Patients (6 to 64 Years) (1 of 2 - PCV) [facility] Start: 1989 Varicella vaccine (1 of 2 - 2-dose childhood series) Varicella vaccine (1 of 2 - 2-dose childhood series) [facility] Start: 1988 HEPATITIS B (1 of 3 - 3-dose series) HEPATITIS B (1 of 3 - 3-dose series) [facility] Start: 1988 Hepatitis B Vaccine (1 of 3 - 3-dose series) Hepatitis B Vaccine (1 of 3 - 3-dose series) [facility] Start: 1988 Hepatitis C screening Hepatitis C screen [place], [place] Start: 1988 HIV screening HIV Screening [facility] Start: 1988 Lipid panel Lipid Panel [facility] Start: 1988 Medicare Annual Wellness (AWV) Medicare Annual Wellness (AWV) [facility] Start: 1988 Medicare Annual Wellness Visit Medicare Annual Wellness Visit (AWV) [facility] 24 hour urine measurement [facility] Adenosine monophosphate.cyclic [Moles/volume] in Serum or Plasma [facility] Albumin [Mass/volume ] in Serum or Plasma [facility] Albumin/Globulin ratio [facility] Bacteria identified in Unspecified specimen by Aerobe culture [facility] Work Phone: Bacteria identified in Unspecified specimen by Anaerobe culture [facility] Work Phone: Basic Metabolic Pane l w/ Reflex to MG Basic Metabolic Panel w/ Reflex to MG Lab Routine Daily until discontinued starting 02/01/2021, 1 completed [facility] Work Phone: Comment on above: Daily until discontinued starting 2020, 1 completed Beta 2 glycoprotein 1 IgG Ab [Units/volume] in Serum [facility] Beta 2 glycoprotein 1 IgM Ab [Units/volume] in Serum [facility] End: 09-18-2023 Blood glucose - POCT Blood glucose - POCT Point of Care Testing Routine One Time for 1 Occurrences starting 09/18/2023 until 09/18/2023 [facility] [employer] Comment on above: One Time for 1 Occurrences starting 01/2024 until 09/18/2023 CANNABINOID CONF, UR CANNABINOID CONF, UR Lab Routine Panic disorder 01/04/2024 10:20 AM EDT [facility] Cardiolipin IgA Ab [Units/volume] in Serum by Immunoassay [facility] Cardiolipin IgG Ab [Units/volume] in Serum by Immunoassay [facility] Cardiolipin IgM Ab [Units/volume] in Serum by Immunoassay [facility] Cell count, cerebros kinga fluid [facility] Work Phone: Centromere protein B Ab [Units/volume] in Serum [facility] Cerebrospinal fluid examination [facility] Work Phone: Chromatin Ab [Units/volume] in Serum or Plasma [facility] Complement C3 [Mass/volume] in Serum or Plasma [facility] Complement C4 [Mass/volume] in Serum or Plasma [facility] Continuous pulse oximetry Pulse oximetry, continuous Respiratory Care Routine Every 4hr until discontinued starting 01/07/2021 [employer] Phone: Comment on above: Every 4hr until discontinued starting End: 10-26-2020 COVID-19 COVID-19 Lab Routine Preoperative testing 1 Occurrences starting 10/26/2020 until 10/26/2020 [employer] Phone: Comment on above: 1 Occurrences starting 10/26/2020 until 10/26/2020 COVID-19 [employer] Phone: End: 01-03-2021 COVID-19 COVID-19 Lab Routine Preop testing 1 Occurrences starting 01/03/2021 until 01/03/2021 [employer] Work Phone: Comment on above: 1 Occurrences starting 01/03/2021 until 01/03/2021 DBT Breast - bilater al diagnostic for implant LINDA DIAG W AV BILATERAL Radiology Routine Mass of upper outer quadrant of left breast 07/04/2024 11:59 AM EDT [facility] Work Phone: ECG COMPLETE ECG COMPLETE ECG Routine Chest pain, unspecified type Palpitations Ordered: 07/01/2024 [facility] Work Phone: Comment on above: Ordered: 07/01/2024 Electrophoresis: [id number] [facility] Electrophoresis: [id number] [facility] Electrophoresis: beta-globulin [facility] Electrophoresis: fiorella ma globulin [facility] Evaluation of cerebrospinal fluid [facility] Work Phone: Fluid sample volume measurement [facility] Work Phone: Globulin [Mass/volum e] in Serum [facility] Glucose [Mass/volume ] in Cerebral spinal fluid [facility] Work Phone: Histone IgG Ab [Units/volume] in Serum by Immunoassay [facility] Homogenous nuclear A b pattern [Titer] in Serum [facility] IgA [Mass/volume] in Serum or Plasma [facility] IgG [Mass/volume] in Serum or Plasma [facility] IgM [Mass/volume] in Serum or Plasma [facility] Immunofixation for Urine [facility] End: 09-18-2023 INITIATE PACU OXYGEN THERAPY PROTOCOL Initiate PACU Oxygen Therapy Protocol Respiratory Care Routine Continuous until discontinued starting 09/18/2023 [facility] Comment on above: Continuous until discontinued starting 0 09/18/2023 Es-1 extractable nuc lear Ab [Units/volume] in Serum [facility] Lupus anticoagulant [Interpretation] in Platelet poor plasma [facility] Measurement of monoc lonal protein concentration [facility] Meningitis+Encephali tis pathogens DNA and RNA panel - Cerebral spinal fluid by JOSÉ MIGUEL with non-probe detection [facility] Work Phone: Microscopic observat ion [Identifier] in Unspecified specimen by Gram stain [facility] Work Phone: End: 08-03-2025 MR Breast - bilateral WO and W contrast IV MRI BREAST WO/W IVCON BILATERAL Radiology Routine Mass of upper outer quadrant of left breast Fibrocystic breast changes of both breasts Mastodynia Inversion of left nipple Bloody discharge from left nipple Nipple discharge 1 Occurrences starting 07/04/2024 until 08/03/2025 [facility] Work Phone: Comment on above: 1 Occurrences starting 07/04/2024 until 08/03/2025 End: 04-07-2025 MR Breast - left WO and W contrast IV MRI BREAST BX WO/W IVCON LEFT Radiology Routine Mass of upper outer quadrant of left breast 1 Occurrences starting 03/08/2024 until 04/07/2025 [facility] Work Phone: Comment on above: 1 Occurrences starting 03/08/2024 until 04/07/2025 End: 12-20-2023 Mra head w/o & w/contrast material MRV BRAIN WO/W IVCON Radiology Routine Idiopathic intracranial hypertension 1 Occurrences starting 11/20/2022 until 12/20/2023 [facility] Work Phone: Comment on above: 1 Occurrences starting 11/20/2022 until 12/20/2023 Myoglobin [Mass/volu me] in Serum or Plasma [facility] Nebulizer therapy HHN Treatment Respiratory Care Routine TID until discontinued starting 01/07/2021 [facility] Work Phone: Comment on above: TID until discontinued starting 01/08/20 21 Nuclear Ab [Titer] i n Serum [facility] Nucleated cells [#/v olume] in Cerebral spinal fluid by Manual count [facility] Work Phone: Oxygen therapy [Mini mum Data Set] [facility] [place] Comment on above: Daily until discontinued starting 2020 Daily until disconti nued starting 01/07/2021 Daily until disconti nued starting 01/31/2021 Oxygen therapy [Mini mum Data Set] Initiate Oxygen Therapy Protocol Respiratory Care Routine As Needed until discontinued starting 09/18/2023 [employer] Work Phone: Comment on above: As Needed until discontinued starting Patient Education [facility] Work Phone: Patient referral [facility] Work Phone: Phase I & II - meter ed glucose Phase I & II - metered glucose Point of Care Testing Routine As Needed until discontinued starting 09/28/2020 [employer] [facility] Comment on above: As Needed until discontinued starting End: 09-28-2020 , urine POCT , urine POCT Point of Care Testing Routine One Time for 1 Occurrences starting 09/28/2020 until 09/28/2020 [employer] [facility] Comment on above: One Time for 1 Occurrences starting 09/14 until 09/28/2020 End: 09-18-2023 , urine POCT , urine POCT Point of Care Testing Routine One Time for 1 Occurrences starting 09/18/2023 until 09/18/2023 [employer] Comment on above: One Time for 1 Occurrences starting 01/2024 until 09/18/2023 Protein [Mass/volume ] in Cerebral spinal fluid [facility] Work Phone: Protein [Mass/volume ] in Serum or Plasma [facility] Protein [Mass/volume ] in Urine [facility] Reagin Ab [Presence] in Serum by RPR [facility] Red blood cell count [facility] Work Phone: Rheumatoid factor [Units/volume] in Serum or Plasma [facility] Serum immunofixation [facility] Sjogrens syndrome-A extractable nuclear Ab [Units/volume] in Serum [facility] Sjogrens syndrome-B extractable nuclear Ab [Units/volume] in Serum [facility] Helm extractable nu clear Ab [Units/volume] in Serum [facility] SPECIMEN VALIDITY, URINE SPECIME N VALIDITY, URINE Lab Routine Panic disorder 01/04/2024 10:20 AM EDT [facility] Spirometry panel Incentive pete metry Respiratory Care Routine Every 2hr while awake until discontinued starting 01/07/2021 [facility] Work Phone: Comment on above: Every 2hr while awake until discontinued starting 01/07/2021 Surgical Pathology Surgical Path ology Lab Routine Release Upon Ordering for 1 Occurrences starting 09/28/2020 [facility] [place], [place] Comment on above: Release Upon Ordering for 1 Occurrences starting 09/28/2020 SURGICAL PATHOLOGY [facility] Work Phone: Comment on above: Release Upon Ordering for 1 Occurrences starting 07/11/2024, 1 completed Thrombin time [facility] US Breast - left limited US JORDYN ST LTD LEFT Radiology Routine Mass of upper outer quadrant of left breast 07/04/2024 12:13 PM EDT [facility] Immunizations Immunization Date Immunization Notes Care Provider Fa cili 04-29-2021 SARS-CoV-2 (COVID-19 ) mRNA BNT-162b2 vax Aimee Walker [facility] 04-08-2021 SARS-CoV-2 (COVID-19 ) mRNA BNT-162b2 vax Aimee Walker [facility] 07-23-2020 influenza virus vaccine, unspecified formulation Eileen Alvarez MD Work Phone: [facility] 07-09-2020 influenza nasal, unspecified formulation Elia Baires DO Work Phone: [facility] 07-09-2020 influenza virus vaccine, unspecified formulation Aimee Walker [facility] 07-09-2020 influenza, injectable, quadrivalent, preservative free Elia Baires DO Work Phone: [facility] 11-12-2000 hepatitis B vaccine, pediatric or pediatric/adolescent dosage Elia Hanseneder DO Work Phone: [facility] 11-12-2000 measles, mumps and rubella virus vaccine Elia Hanseneder DO Work Phone: [facility] NEGATED: Highlighted row has not occurred!07-21-2022 influenza virus vaccine, unspecified formulation Aimee Walker [facility] Payers Date Payer Category Payer Unknown [id number] 2024 Unknown 2023 Medicare (Managed Care) 1.2. [id number] 2023 Medicare [id number] 2021 Medicaid [place] [id number] 2021-Present [phone] [address] [place] [address] Medicaid [id number] 2021 Medicaid [id number] .[id number] 2021 Medicare HUMANA MEDICARE HUMANA MEDICARE PPO [id number] 2021-Present [phone] [address] [address] [place] [address] PPO [id number] .[id number] 2020 Medicare [id number] 1.2.840.581390.1.13.239.2.7 .3.399841.315 2018 Medicare [id number]. 1.13.159.2.7 .3.061389.315 2018 Medicare [id number] 1988 Unknown [id number] 2.16.840.1.130515.3.579.2.7 32 1988 Unknown [id number] 2.16.840.1.966226.3.579.2.1 77 1988 Unknown [id number] 2.16.840.1.185210.3.579.2.3 56 1988 Unknown [id number] 2.16.840.1.095215.3.579.2.5 93 1988 Unknown [id number] 2.16.840.1.274631.3.579.2.5 93 1988 Unknown [id number] 2.16.840.1.324652.3.579.2.5 93 1988 Unknown [id number] 2.16.840.1.788229.3.579.2.5 93 1988 Unknown [id number] 2.16.840.1.611195.3.579.2.5 93 1988 Unknown [id number] 2.16.840.1.712267.3.579.2.5 93 1988 Unknown [id number] 2.16.840.1.145762.3.579.2.5 93 1988 Unknown [id number] 2.16.840.1.066487.3.579.2.5 93 1988 Unknown [id number] 2.16.840.1.648265.3.579.2.5 93 1988 Unknown [id number] 2.16.840.1.358554.3.579.2.5 93 1988 Unknown [id number] 2.16.840.1.759363.3.579.2.5 93 1988 Unknown [id number] 2.16.840.1.295443.3.579.2.1 73 1988 Unknown [id number] 2.16.840.1.649370.3.579.2.1 73 1988 Unknown [id number] 2.16.840.1.092789.3.579.2.1 74 1988 Unknown [id number] 2.16.840.1.508822.3.579.2.1 74 1988 Unknown [id number] 2.16.840.1.042098.3.579.2.1 74 1988 Unknown [id number] 2.16.840.1.947888.3.579.2.7 27 1988 Unknown [id number] 2.16.840.1.705088.3.579.2.7 27 1988 Unknown [id number] 2.16.840.1.187477.3.579.2.7 27 1988 Unknown [id number] 2.16.840.1.243575.3.579.2.7 27 1988 Unknown [id number] 2.16.840.1.662592.3.579.2.7 27 1988 Unknown [id number] 2.16.840.1.527479.3.579.2.7 27 1988 Unknown [id number] 2.16.840.1.565201.3.579.2.1 246 1988 Unknown [id number] 2.16.840.1.176848.3.579.2.7 27 1988 Unknown [id number] 2.16.840.1.915962.3.579.2.7 27 1988 Unknown [id number] 2.16.840.1.035959.3.579.2.7 27 1988 Unknown [id number] 2.16.840.1.045303.3.579.2.7 27 1988 Unknown [id number] 2.16.840.1.967026.3.579.2.7 27 1988 Unknown [id number] 2.16.840.1.205916.3.579.2.1 75 1988 Unknown [id number] 2.16.840.1.955883.3.579.2.1 244 1988 Unknown [id number] 2.16.840.1.181610.3.579.2.7 27 1988 Unknown [id number] 2.16.840.1.502283.3.579.2.7 27 1988 Unknown [id number] 2.16.840.1.040109.3.579.2.7 27 1988 Unknown [id number] 2.16.840.1.731738.3.579.2.7 27 1988 Unknown [id number] 2.16.840.1.476111.3.579.2.7 27 1988 Unknown [id number] 2.16.840.1.482666.3.579.2.7 27 1988 Unknown [id number] 2.16.840.1.013244.3.579.2.7 27 1988 Unknown [id number] 2.16.840.1.728678.3.579.2.7 27 1988 Unknown [id number] 2.16.840.1.826739.3.579.2.7 27 1988 Unknown [id number] 2.16.840.1.075176.3.579.2.7 27 1988 Unknown [id number] 2.16.840.1.518089.3.579.2.7 27 1988 Unknown [id number] 2.16.840.1.108697.3.579.2.7 27 1988 Unknown [id number] 2.16.840.1.907881.3.579.2.7 27 1988 Unknown [id number] 2.16.840.1.407119.3.579.2.7 27 1988 Unknown [id number] 2.16.840.1.612823.3.579.2.7 27 1988 Unknown [id number] 2.16.840.1.898075.3.579.2.7 27 1988 Unknown [id number] 2.16.840.1.973573.3.579.2.7 27 1988 Unknown [id number] 2.16.840.1.504174.3.579.2.7 27 1988 Unknown [id number] 2.16.840.1.664454.3.579.2.7 27 1988 Unknown [id number] 2.16.840.1.599637.3.579.2.7 27 1988 Unknown [id number] 2.16.840.1.032436.3.579.2.7 27 1988 Unknown [id number] 2.16.840.1.638316.3.579.2.1 259 1988 Unknown [id number] 2.16.840.1.320568.3.579.2.1 259 1988 Unknown [id number] 2.16.840.1.526861.3.579.2.1 259 1988 Unknown [id number] 2.16.840.1.577851.3.579.2.1 259 1988 Unknown [id number] 2.16.840.1.539649.3.579.2.1 259 1988 Unknown [id number] 2.16.840.1.184318.3.579.2.7 27 1988 Unknown [id number] 2.16.840.1.322968.3.579.2.7 27 1988 Unknown [id number] 2.16.840.1.897613.3.579.2.7 27 1988 Unknown [id number] 2.16.840.1.827027.3.579.2.7 27 1988 Unknown [id number] 2.16.840.1.003567.3.579.2.7 27 1959 Medicaid [id number] 1.2.840.960143.1.13.239.2.7 .3.721552.315 1959 Private Health Insurance [id number] Self-pay [id number] Private Health Insurance [employer] MCR PFFS M [id number] Unknown [id number] 2.16.840.1.616684.3.579.2.5 31 Unknown [id number] 2.16.840.1.813732.3.579.2.5 31 Unknown [id number] 2.16.840.1.265342.3.579.2.5 31 Unknown [id number] 2.16.840.1.498037.3.579.2.5 31 Unknown [id number] 2.16.840.1.203903.3.579.2.5 31 Unknown [id number] 2.16.840.1.664913.3.579.2.5 31 Unknown [id number] 2.16.840.1.520851.3.579.2.5 31 Social History Date Type Detail Facility Start: 09-28-2020 End: 01-29-2022 Tobacco smoking status NHIS Former smoker [place], [place] Start: 08-12-2022 End: 09-15-2024 History of tobacco use Current smoker [place] Start: 09-28-2020 End: 04-13-2025 Tobacco use and exposure Never used [place], [place] Start: 09-28-2020 End: 04-13-2025 Alcohol intake Current drinker of alcohol (finding) [place] Start: 09-28-2020 End: 07-03-2022 History SDOH Alcohol Frequency 1 [facility] Start: 09-28-2020 Alcohol Comment brien [facility] Start: 1990 Sex Assigned At Not on file [facility] Start: 12-16-2021 End: 09-13-2024 Exposure to SARS-CoV-2 (event) Not sure [place] End: 03-14-2020 History of tobacco use Cigarette Smoker [facility] Work Phone: Start: 09-28-2020 Alcohol Comment brien [facility] [employer] Phone: Start: 12-26-2021 End: 05-30-2025 Tobacco smoking status ORIS Smokes tobacco daily [facility] Start: 12-26-2021 End: 04-13-2025 Cigarettes smoked current (pack per day) - Reported 1 [facility] Start: 03-18-2010 History SDOH Alcohol Comment beer and wine once a month [facility] Start: 07-01-2021 End: 02-17-2025 Tobacco smoking status Heavy tobacco smoker (finding) [facility] Tobacco smoking status Never [facility] Start: 07-03-2022 End: 04-13-2025 Sex Assigned At Female [facility] Start: 1990 [...] to any clubs or organizations such as orthodox groups, unions, fraternal [...] hav e a drink containing alcohol? Never [facility] Start: 12-10-2023 Tobacco smoking status NHIS Never smoked tobacco (finding) [facility] Do you feel stress - tense, restless, nervous, or anxious, or unable to sleep at night because your mind is troubled all the time - these days [OSQ] Only a little [facility] Start: 07-04-2024 Alcohol Comment 13 days sober- 07/04/2024 [facility] Start: 08-08-2024 Alcoholic beverage intake Lifetime non-drinker (finding) [facility] Work Phone: Start: 09-11-2024 Sexual orientation Choose not to disclose [facility] Work Phone: How many [address] dr inks containing alcohol do you have on a typical day? 3 or 4 [facility] Start: 08-26-2013 End: 09-15-2024 Sex Female (finding) [facility] Sexual Orientation [facility] Medical Equipment Procedure Code Equipment Code Equipment Origin al Text Equipment Identifier Dates Breast Us Core B x Clip [id number] Start: 07-11-2024 Comment on above: Description: Ribbon clip Goals Date Patient Goal Desired Activity /State Functional Status Date Assessment Result Facility 01-27-2025 Functional Status N/A [facility] 01-24-2025 Functional Status N/A [facility] 01-13-2025 Functional Status N/A [facility] 11-28-2024 Functional Status N/A [facility] 11-15-2024 Functional Status N/A [facility] 10-18-2024 Functional Status N/A [facility] 03-08-2024 Functional Status N/A [facility] 07-02-2023 Functional Status N/A [facility] 01-15-2023 Functional Status N/A [facility] 11-21-2022 Functional Status No [facility] 11-03-2022 Functional Status N/A [facility] 09-24-2022 Functional Status N/A [facility] 08-22-2022 Functional Status N/A [facility] 08-18-2022 Functional Status N/A [facility] 08-12-2022 Functional status Patient at Baseline [facility] Work Phone: 08-08-2022 Functional Status N/A [facility] 07-21-2022 Functional Status N/A [facility] 04-21-2022 Functional Status N/A [facility] 04-20-2022 Functional Status N/A [facility] 04-03-2022 Functional Status N/A [facility] Mental Status Date Assessment Result Facility 08-12-2022 Cognitive function Cognitive Sta tus Patient at Baseline [facility] Work Phone: Clinical Notes 12-24-2020 to 05-04-2025 Aaliyah Zamudio, - 05/04/2025 9:45 AM Rangel Parrakowitz, - 04/13/2025 10:00 AM EDTEvangelistalavonne Elise, DIRECTOR LOAN - 04/09/2025 10:45 AM EDT Note Date [...] left breast, which was biops[facility] at [facility] and diagnosed with PASH. She states she can feel the mass and it hurts. She was told at the time to watch the mass and she was never seen by a breast surgeon. She was told to keep an eye on it and did not request any follow up imaging. She lives in [place] and wants to move her care closer [...] Day Physical Exam Exam conducted with a pourer present. HENT: Head: Normocephalic. Cardiovascular: Rate and [...] and a subsequent biopsy done at the [facility] confirmed PASH. She was told to [...] have been made. documented in this encounter [facility] 04-26-2025 Radiology Diagnostic study note [facility] [place] [address] [place] [address] Ultrasound Report Signed Patient: Shazia Chou MR#: [id number] : 1990 Acct:[id number] Age/Sex: 34 / F ADM Date: 5 Loc: [place] Room: Type: [facility] CLI Attending Dr: Aaliyah Zamudio DO Ordering Provider: Aaliyah Zamudio DO Date of Service: 04/26/25 MM/MM diagnostic mammo LT w/CAD: follow up for Left breast Upper outer quadrant ([id number]) US/US breast LT limited: follow with mamm [...] Escalante M.D. 04/26/2025 10:15 AM Dictation Location: [facility] Tech: Shazia Mullen; Elena Vaughn Transcribed By: MARKY 04/26/25 1015 Dictated By: Denny Escalante MD 04/26/25 1009 Signed By: 04/26/25 1015 [facility] Work Phone: 04-13-2025 History of Present [...] any follow up imaging. She lives in [place] and wants to move her care closer [...] Day Physical Exam Exam conducted with a pourer present. HENT: Head: Normocephalic. Cardiovascular: Rate and [...] imaging is completed. documented in this encounter [facility] 04-09-2025 History of Present illness Narrative Images from the original note were not included. [address], [address] [facility], [address] P: [phone] F: [phone] HPI Historian of HPI: patient Shazia Chou [...] Shazia Elise NP documented in this encounter [facility] 03-29-2025 Note Pulmonology Office/Shaneka umaña Note History [...] Narcisa BHAKTA, Sami Longoria, PUL, GREER [address] [facility]) [place] [address]- Additional Instructions: after his testing is completed [...] plantar fasciotomy (02/16/20 (more content not included)... [facility] Comment on above: [...] Appointments Appointment Date:03/13/2025 11:30:00 AM Scheduled Provider: Location:[facility] Appointment Type:NM Myocard Spect Multi Rest/Stress-Res Appointment Date:03/13/2025 12:30:00 PM Scheduled Provider: Location:[facility] Appointment Type:NM Myocard Spect Multi Rest/Stress - R Appointment Date:03/13/2025 01:00:00 PM Scheduled Provider: Location:[facility] Appointment Type:NM Myocard Spect Multi Rest/Stress-Str Appointment Date:03/13/2025 02:00:00 PM Scheduled Provider: Location:[facility] Appointment Type:NM Myocar Spect Multi Rest/Stress - St Appointment Date:03/16/2025 02:30:00 PM Scheduled Provider:Jak Peace MD Location:FT.[facility] Appointment Type:Cardiology Follow Up (FT) Future Scheduled Tests Radiology* NM Myocardial Spect Rest/Stress 1 Day 03/13/25 [facility] 06-26-2025 NoteConsultation Note Patient is presenting with [...] call with any questions or concerns that arise.[facility] HospitalComment on above:Result Comment: Electronically Signed By: Babar Mayers DO\.br\Date and Time Signed: 03/09/25 13:04 EDT 03-03-2025 [...] The patient agrees to continue currently prescribed/recommended therapies.[facility] HospitalComment on above: Result Comment: Electronically Signed By: Babar Mayers DO.david\Date and Time Signed: 03/03/25 08:46 [id number] Hospital Discharge instructions Patient Education 02/17/2025 21:08:51 [...] Follow these instructions at home: Medicines Take sdwu-erh-opxuwgx and prescription medicines only as told by [...] provider. Document Revised: 01/09/2022 Document Reviewed: 01/09/2022 [employer] Patient Education 2023 [employer]. 02/17/2025 21:08:51 Acute Bronchitis, Adult Acute Bronchitis, [...] condition. Follow these instructions at home: Take lfvv-wms-ywulcfj and prescription medicines only as told by [...] and water are not available, use hand radio operator. Avoid contact with people who have [...] it is easier to cough up. Take svcg-ame-kcezltb and prescription medicines only as told by [...] provider. Document Revised: 12/11/2022 Document Reviewed: 01/01/2022 [employer] Patient Education 2023 [employer]. Follow Up Care 02/17/2025 18:54:28 With:Jennie Durand Address: [address], [place] [address], [facility] [address] [place] [address] Business (1) When:02/20/2025 20:12:05 [facility] 06-06-2025 NoteED Patient Education Note Neurology Near-Syncope [...] these instructions at home: Medicines ??? Take vvpb-gwi-ripfzli and prescription medicines only as told by [...] provider. Document Revised: 01/09/2022 Document Reviewed: 01/09/2022 [employer] Patient Education ? 2023 [employer]. Pulmonary Medicine Acute Bronchitis, Adult Acute bronchitis [...] the common cold. ??? (more content not included)...[facility]06-[facility] Telephone encounter Note* Telephone Encounter - Tevin Carson DO - 02/13/2025 8:56 AM EDT Needs follow-up Tevin Carson DO [facility]06-02-2025 Miscellaneous Notes* Telephone Encounter - Tevin [...] advise. Madeline Teixeira MA documented in this encounterC[facility]05-[facility] Telephone encounter Note * Telephone Encounter - Madeline Teixeira MA - 02/11/2025 10:13 AM EDT Last OV 07/25/2024 ..Pharmacy escripts requesting the following refill: Requested Prescriptions Pending Prescriptions Disp Refills lamoTRIgine (LAMICTAL) 25 mg tablet [Pharmacy Med Name: LAMOTRIGINE 25 MG TABLET] 360 tablet 0 Sig: TAKE 2 TABLETS BY MOUTH TWICE A DAY Please review and advise. Madeline Teixeira MA [facility]05-30-2025 NoteEchocardiology Procedure Exam Date/Time Accession # Ordering Echo Transthoracic 02/09/2025 11:26 EDT [id number] MOLLY GREGORIO CNP CPT code 13426 38400 Reason for Exam (Echo Transthoracic Complete) Palpitations R00.2 [place] [address] Adult Echocardiogram Report Name: LINDA CHOUDION Bach Study Date: 02/09/2025 10:52 AM BP: 135/99 mmHg Patient Location: [facility] Ambulatory(s) [facility] HR: 65 : 1990 Gender: Female Height: 67 in Age: 34 yrs Ethnicity: T Weight: 205 lb Reason For Study: Palpitations R00.2 BSA: 2.0 m2 History: HTN,Smoker-Yes Ordering Physician: RAMIN Referring Physician: MOLLY GREGORIO Performed By: Candis [...] 32.7 mmHg Measurements from QLAB ED Mass (): 133.0 grams LAEF (): 62.0 % BSA (): 2.0 m2 CI (): 2.8 l/min/m2 MINESH (): 25.0 ml/m2 LAVmax (): 50.0 ml LAVmin (): 19.0 ml Pat Height (): 170.0 cm Pat Weight (HM): 93.0 kg FINAL REPORT Dictated: 02/09/2025 10:52 am Fernandez Daniels MD Signed (Electronic Signature): 02/10/2025 11:27 am Signed by: Fernandez Daniels MD Transcribed by: GINA Technologist: [facility]05-16-2025 Evaluation + Plan noteExtracted from: Title:Pain [...] prevent future risk of falling. [facility] 05-16-2025 NoteConsultation Note Patient: SHAZIA CHOU Age: [...] TID, # 90 tab(s), Refills(s) 2, Pharmacy: [facility]/pharmacy #[id number], 170, cm, 01/13/25 8:29:00 EDT, Height/Length [...] All Problems Bipolar disorder / SNOMED CT 12420540 / Confirmed Pancreatic mass / SNOMED CT 8655729951 / Confirmed Smoker / SNOMED CT 786770803 / Confirmed Added secondary to documentation in Social History. Borderline personality disorder / SNOMED CT 66086115 / Confirmed History of bypass of stomach / SNOMED CT 6896553631 / Confirmed Vitamin D deficiency / SNOMED CT 09527690 / Confirmed Left breast mass / SNOMED CT 419937528 / Confirmed Hypertension / SNOMED CT 3518217321 / Confirmed Overweight (BMI 25.0-29.9) / SNOMED CT 3320668294 / Confirmed Muscle weakness-general / SNOMED CT 51331459 / Confirmed Chronic pain syndrome / SNOMED CT 6665004566 / Confirmed Iron deficiency anemia / SNOMED CT 556668931 / Confirmed noted in 09/16/2024 [facility] Records page 5. added per OP CDI policy. Alcohol abuse, uncomplicated / SNOMED CT 33543695 / Confirmed BMI 31.0-31.9,adult / SNOMED CT 801243283 / Confirmed Obesity (BMI 30-39.9) / SNOMED CT 718967757 / Confirmed Resolved: / SNOMED CT 863221365 Resolved: / SNOMED CT 221636632 Resolved: / SNOMED CT 874727476 Resolved: Alcohol abuse / SNOMED CT 15345726 Canceled: Anxiety and depression / SNOMED CT 44518702 Canceled: Plantar fasciitis of left foot / SNOMED CT 773892677 Canceled: Intracranial hypertension / SNOMED CT 007036804 Canceled: Smoker / SNOMED CT [id number] Added secondary to documentation in Social History. Canceled: Class 1 obesity with body mass index (BMI) of 32.0 to 32.9 in adult / SNOMED CT 0730318779 Canceled: Anxiety / SNOMED CT 71720066 Canceled: Depression / SNOMED CT 71833250 Canceled: Borderline personality disorder / SNOMED CT 75007833 Canceled: Class 1 obesity with body mass index (BMI) of 30.0 to 30.9 in adult / SNOMED CT 9822558881 Canceled: Former smoker / SNOMED CT 18975029 Canceled: Grief reaction / SNOMED CT 563809335 Canceled: Overweight with body mass index (BMI) of 29 to 29.9 in adult / SNOMED CT 7570387126 Canceled: Disorder of oral soft tissue / SNOMED CT 9336676701 Canceled: Intentional benzodiazepine overdose / SNOMED CT 3330644467 Canceled: Omental infarction / SNOMED CT 449665023 Canceled: Axillary (more content not included)...[facility] Comment on above:Result Comment: Electronically Signed By: Humble GERONIMO, Orlando\.br\Date and Time Signed: 01/27/25 10:38 [id number] NoteOperative Report Diagnosis: m47.816, lumbar spondyloarthropathy Procedure: [...] The patient agrees to continue currently prescribed/recommended therapies.[facility] HospitalComment on above: Result Comment: Electronically Signed By: Babar Mayers DO.br\Date and Time Signed: 01/24/25 09:58 [id number] Evaluation + Plan noteExtracted from: Title:Pain Managment [...] treatments including physical therapy in the past, wfzz-xxt-flkpffk anti-inflammatory medications and the recent injection helped [...] Scheduled Provider: Location:.PHYSICAL [place] Appointment Type:PT Julieta (FT) [facility] 05-02-2025 NoteConsultation Note Patient: SHAZIA CHOU Age: [...] been working full- time. She works at [employer] and they were running a special where they went back to the [employer] from the and she states that everybody was ordering Tablus and then everybody called off and she worked for over 12 hours. She states that it was miserable. At this time, she has back pain that she rates a 7/10 but it can get up to a 10/10 with walking, standing, being upright and active. She feels like the Lyrica did not help her so she went back to [facility]. She is using 600 mg [...] BID, # 6 tab(s), Refills(s) 1, [id number], cm, 08/08/22 9:11:00 EST, Height/Length Dosing, 83.1, kg, 08/08/22 9:11:00 EST, Weight Dosing pregabalin 50 mg Cap: 50 mg = 1 cap(s), Oral, BID, X 30 day(s), # 60 cap(s), Refills(s) 1, [id number], 170, cm, 11/15/24 13:59:00 EST, [...] All Problems Bipolar disorder / SNOMED CT 66081829 / Confirmed Pancreatic mass / SNOMED CT 7379178777 / Confirmed Smoker / SNOMED CT 351497459 / Confirmed Added secondary to documentation in Social History. Borderline personality disorder / SNOMED CT 25343387 / Confirmed History of bypass of stomach / SNOMED CT 6695441886 / Confirmed Vitamin D deficiency / SNOMED CT 54699039 / Confirmed Left breast mass / SNOMED CT 819945465 / Confirmed Hypertension / SNOMED CT 6239181069 / Confirmed Overweight (BMI 25.0-29.9) / SNOMED CT 6017683928 / Confirmed Muscle weakness-general / SNOMED CT 62097521 / Confirmed Chronic pain syndrome / SNOMED CT 6725352338 / Confirmed Iron deficiency anemia / SNOMED CT 026991867 / Confirmed noted in 09/16/2024 [facility] Records page 5. added per OP CDI policy. Alcohol abuse, uncomplicated / SNOMED CT 79233392 / Confirmed BMI 31.0-31.9,adult / SNOMED CT 001362407 / Confirmed Obesity (BMI 30-39.9) / SNOMED CT 322229285 / Confirmed Resolved: / SNOMED CT 912554488 Resolved: / SNOMED CT 229205088 Resolved: / SNOMED CT 614931702 Resolved: Alcohol abuse / SNOMED CT 57713020 Canceled: Anxiety and depression / SNOMED CT 60655167 Canceled: Plantar fasciitis of left foot / SNOMED CT 901899684 Canceled: Intracranial hypertension / SNOMED CT 560915498 Canceled: Smoker / SNOMED CT [id number] Added secondary to documentation in Social History. Canceled: Class 1 obesity with body mass index (BMI) of 32.0 to 32.9 in adult / SNOMED CT 0253080486 Canceled: Anxiety / SNOMED CT 16660608 Canceled: Depression / SNOMED CT 90228101 Canceled: Borderline personality disorder / SNOMED CT 37333522 Canceled: Class 1 obesity with body mass index (BMI) of 30.0 to 30.9 in adult / SNOMED CT 3714403727 Canceled: Former smoker / SNOMED CT 36830388 Canceled: Grief reaction / SNOMED CT 940559555 Canceled: Overweight with body mass index (BMI) of 29 to 29.9 in adult / SNOMED CT 0854310028 Cance (more content not included)...[facility] HospitalComment on above: Result Comment: Electronically Signed By: Orlando Kate PA-C\.br\Date and Time Signed: 01/13/25 08:44 [id number] Evaluation + Plan noteExtracted from: Title:Bilateral lumbar [...] Date:01/27/2025 10:15:00 AM Scheduled Provider:Orlando Kate PA-C Location:FT.[facility] Appointment Type:Pain Management - Follow Up (FT) [facility] 04-05-2025 Evaluation + Plan noteExtracted from: Title:Bilateral [...] 12:30:00 PM Scheduled Provider:Babar Mayers DO Location:.Pain [facility] Appointment Type:Pain Management - Follow [...] Spect Rest/Stress 1 Day 03/13/25 [facility] 03-17-2025 Evaluation + Plan noteExtracted from: Title:Left [...] AM Scheduled Provider:Orlando Kate PA-C Location:.Pain Mgmt [place] Appointment Type:Pain Management - Follow Up (FT) Future Scheduled Tests Radiology* US Abdomen, Limited 11/29/24 [facility] 03-17-2025 NoteOperative Report Diagnosis: m54.16, lumbar radiculopathy [...] and agrees to comply to currently prescribed/recommended therapies.[facility] Comment on above:Result Comment: Electronically Signed By: Babar Mayers DO.br\Date and Time Signed: 11/28/24 10:22 [id number] NoteConsultation Note Patient: SHAZIA CHOU Age: 33 [...] all conservative treatments first. She has taken zejb-bop-thywhpl medication without any long-term relief. She states that her left leg pain affects her quality of life and affects her activities. 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 She is hopeful to be able to [...] All Problems Bipolar disorder / SNOMED CT 27001534 / Confirmed Pancreatic mass / SNOMED CT 8704958467 / Confirmed Smoker / SNOMED CT 960743131 / Confirmed Added secondary to documentation in Social History. Borderline personality disorder / SNOMED CT 32773285 / Confirmed History of bypass of stomach / SNOMED CT 5359201465 / Confirmed Vitamin D deficiency / SNOMED CT 66947670 / Confirmed Left breast mass / SNOMED CT 670281073 / Confirmed Hypertension / SNOMED CT 7396228025 / Confirmed Overweight (BMI 25.0-29.9) / SNOMED CT 2068128464 / Confirmed Muscle weakness-general / SNOMED CT 58222943 / Confirmed Chronic pain syndrome / SNOMED CT 0950549512 / Confirmed Iron deficiency anemia / SNOMED CT 154250785 / Confirmed noted in 09/16/2024 [facility] Records page 5. added per OP CDI policy. Alcohol abuse, uncomplicated / SNOMED CT 92292008 / Confirmed BMI 31.0-31.9,adult / SNOMED CT 765114046 / Confirmed Obesity (BMI 30-39.9) / SNOMED CT 883606660 / Confirmed Resolved: / SNOMED CT 325949363 Resolved: / SNOMED CT 621181409 Resolved: / SNOMED CT 375412715 Resolved: Alcohol abuse / SNOMED CT 00578130 Canceled: Anxiety and depression / SNOMED CT 89904014 Canceled: Plantar fasciitis of left foot / SNOMED CT 267907430 Canceled: Intracranial hypertension / SNOMED CT 483357903 Canceled: Smoker / SNOMED CT [id number] Added secondary to documentation in Social History. Canceled: Class 1 obesity with body mass index (BMI) of 32.0 to 32.9 in adult / SNOMED CT 9399359538 Canceled: Anxiety / SNOMED CT 83304122 Canceled: Depression / SNOMED CT 37599593 Canceled: Borderline personality disorder / SNOMED CT 31247305 Canceled: Class 1 obesity with body mass index (BMI) of 30.0 to 30.9 in adult / SNOMED CT 3041628398 Canceled: Former smoker / SNOMED CT 48753124 Canceled: Grief reaction / SNOMED CT 800025128 Canceled: Overweight with body mass index (BMI) of 29 to 29.9 in adult / SNOMED CT 9400448652 Canceled: Disorder of oral soft tissue / SNOMED CT 3622334567 Canceled: Intentional benzodiazepine overdose / SNOMED CT 8849063124 Canceled: Omental infarction / SNOMED CT 526989632 Canceled: Axillary lymphadenopathy / SNOMED CT 967992 Canceled: BMI 28.0-28.9,adult / SNOMED CT 8568353564 Canceled: Over weight / SNOMED CT 984943352 Canceled: Leukocytosis / SNOMED CT 450756925 Canceled: BMI 29.0-29.9,adult / SNOMED CT 3617462036 Canceled: Headache after spinal puncture / SNOMED CT 479644572 Canceled: Trapezius muscle spasm / SNOMED CT 2365552526 Canceled: Recovering alcoholic (more content not included)...[facility] HospitalComment on above:Result Comment: Electronically Signed By: Orlando Kate PA-C\.br\Date and Time Signed: 11/15/24 14:14 [id number] Evaluation + Plan noteExtracted from: Title:Pain Managment [...] if necessary. NOAH score: 42%. [facility] 02-04-2025 Evaluation + Plan noteExtracted from: Title:ED Note Author:Beto Shea PA-C te:10/18/24 Chronic pain (G89.29: Other chronic pain) Orders: ketorolac, 60 mg = 2 mL, Injection, IntraMuscular, Once PRN Pain, STAT, Start date 10/18/24 8:31:00 EST, 10/18/24 8:31:00 EST methocarbamol, 1,500 mg = 2 tab(s), Oral, TID, X 3 day(s), # 18 tab(s), Refills(s) 0, Pharmacy: [facility]/pharmacy #[id number], 170, cm, 10/18/24 8:12:00 EST, Height/Length Dosing, 90, kg, 10/18/24 8:12:00 EST, Weight Dosing predniSONE, 60 mg = 3 tab(s), Oral, Daily, X 7 day(s), # 21 tab(s), Refills(s) 0, Pharmacy: [facility]/pharmacy #[id number], 170, cm, 10/18/24 8:12:00 EST, Height/Length Dosing, 90, kg, 10/18/24 8:12:00 EST, Weight Dosing Future Appointments Appointment Date:11/18/2024 08:00:00 AM Scheduled Provider:KURT BALBUENA CNP Location:[facility] [place] Appointment Type:[facility] 02-04-2025 Hospital Discharge instructions Patient Education 10/18/2024 [...] your skin (aromatherapy). Other treatments may include: Cpna-bam-ewinkts or prescription medicines. Color, light, or sound therapy. Local electrical stimulation. The electrical pulses help to relieve pain by temporarily stopping the nerve impulses that cause you to feel pain. Injections. These deliver numbing or pain-relieving medicines into the spine or the area of pain. Medicines Take czfi-wtv-pxocqpa and prescription medicines only as told by your health care provider. Ask your health care provider if the medicine prescribed to you: ?Requires you to avoid driving or using machinery. ?Can cause constipation. You may need to take these actions to prevent or treat constipation: ?Drink enough fluid to keep your urine pale yellow. ?Take iwqz-oon-vyvyuoh or prescription medicines. ?Eat foods that are [...] the National Suicide Prevention Lifeline at or 239. This is open 24 hours a day. Text the Crisis Text Line at 725047. This information is not intended to replace advice given to you by your health care provider. Make sure you discuss any questions you have with your health care provider. Document Revised: 04/22/2023 Document Reviewed: 03/25/2023 [employer] Patient Education 2023 [employer]. Follow Up Care 10/18/2024 08:05:45 With:KURT REZAHMANN Address: [address] [place], [place] [address] Business (1) When:10/21/2024 08:32:28 [facility] 02-04-2025 NoteED Patient Education Note Mental and [...] skin (aromatherapy). Other treatments may include: ??? Seli-ufg-quyaulv or prescription medicines. ??? Color, light, or sound therapy. ??? Local electrical stimulation. The electrical pulses help to relieve pain by temporarily stopping the nerve impulses that cause you to feel pain. ??? Injections. These deliver numbing or pain-relieving medicines into the spine or the area of pain. Medicines ??? Take nurr-btr-qlebwon and prescription medicines only as told by your health care provider. ??? Ask your health care provider if the medicine prescribed to you: ? Requires you to avoid driving or using machinery. ? Can cause constipation. You may need to take these actions to prevent or treat constipation: ? Drink enough fluid to keep your urine pale yellow. ? Take oxbt-baa-ulnjcnv or prescription medicines. ? Eat foods that [...] the National Suicide Prevention Lifeline at or 110. This is open 24 hours aday. ??? Text the Crisis Text Line at 574987. This information is not intended to replace advice given to you by your health care provider. Make sure you discuss any questions you have with your health care provider. Document Revised: 04/22/2023 Document Reviewed: 03/25/2023 [employer] Patient Education ? 2023 [employer].[facility] 10-17-2024 NoteHNO ID: [id number] Author: MELISSA GOLD MA Service: ? Author Type: Pneumatic Hoist Operator Type: Progress Notes Filed: 10/17/2024 12:28 Note Text: POPULATION HEALTH NAVIGATION OUTREACH Action/FYI Topic Due (Y or N) Comments Medicare Wellness Y PCP Follow up Y Mammogram N Colorectal Cancer Screening N A1C N Controlling BP N Dilated Retinal Exam ([place]) N KED (UACR and eGFR) N HCC Y Flu Vaccine Y Care Everywhere Reviewed DONE SHEEXhart Activation ACTIVE Updated Appointment Note N/A Reason for Outreach Care Gap/HCC or Scheduling Wellness Visits Care Gaps due: Medicare Annual Wellness Visit Follow-up Appointment Flu Vaccine Patient Contacted: Unable or unnecessary to reach patient: Left message DocASAP message sent HCC related Navigation Signature: Melissa Gold MA October 17, 2024 12:23 [facility]02-03-2025 History of Present illness Narrative* Melissa [...] or unnecessary to reach patient: Left message DocASAP message sent HCC related Navigation Signature: Melissa Gold MA October 17, 2024 12:23 PM documented in this encounterC[facility] NotePatient Outreach (NETNAV) SHAZIA CHOU ([id number]) 1990 F Date Time Provider Department 10/17/24 [...] or unnecessary to reach patient: Left message DocASAP message sent HCC related Navigation Signature: Melissa [...] mg by mouth daily at bedtime. - lerqyyjtcasy-vzr-bjtp-FA-vit K (BARIATRIC MULTIVITAMINS) 45 mg iron- 800 [...] Encounter Status:Closed by MELISSA GOLD on 10/17/24[facility]01-31-[facility]25 NotePatient Education Mental and Behavioral [...] ??? alcohol spectrum disorders (FASDs). ??? Sudden syndrome (SIDS). What actions can I take [...] plan to use machinery, such as a pillar man or power tool. ? You have a [...] National Drug and Alcohol Treatment Referral Service: 6-458-551-HELP (2961) ??? Alcoholics Anonymous, Alcoholics Resource Center: ??? Substance Abuse and Mental Health Services Administration: samhsa.gov Where to find more information: ??? Centers for Disease Control and Prevention: cdc.gov ??? National Almond on Alcohol Abuse and Alcoholism: niaaa.nih.gov/alcohol Contact [...] the National Suicide Prevention Lifeline at or 930. This is open 24 hours aday. ??? Text the Crisis Text Line at 055759. Summary ??? Binge-drinking refers to drinking a large amount of alcohol in a short time. This is usually 5 drinks for men or 4 drinks for women, on one occasion. ??? Binge-drinking can lead to serious health problems, such as heart dise (more content not included)...[facility]01-17-2025 NotePatient Education Mental and Behavioral Health [...] skin (aromatherapy). Other treatments may include: ??? Hywn-dbv-btnjnld or prescription medicines. ??? Color, light, or sound therapy. ??? Local electrical stimulation. The electrical pulses help to relieve pain by temporarily stopping the nerve impulses that cause you to feel pain. ??? Injections. These deliver numbing or pain-relieving medicines into the spine or the area of pain. Medicines ??? Take bkmk-dqb-ytqeejt and prescription medicines only as told by your health care provider. ??? Ask your health care provider if the medicine prescribed to you: ? Requires you to avoid driving or using machinery. ? Can cause constipation. You may need to take these actions to prevent or treat constipation: ? Drink enough fluid to keep your urine pale yellow. ? Take ldbo-qdy-ljeqwya or prescription medicines. ? Eat foods that [...] the National Suicide Prevention Lifeline at or 693. This is open 24 hours aday. ??? Text the Crisis Text Line at 534277. This information is not intended to replace advice given to you by your health care provider. Make sure you discuss any questions you have with your health care provider. Document Revised: 04/22/2023 Document Reviewed: 03/25/2023 [employer] Patient Education ? 2023 [employer].[facility] 09-27-2024 History of Present illness Narrative* Corby Larsen, DO - 09/27/2024 2:00 PM EST Images from the original note were not included. Reason for Appointment: EMG Patient: Shazia Chou : 1990 EMG Computer: [employer] Referring Physician: Dr. Corby Larsen EMG: [place] direct service provider: Saúl Mccray RT(R) Office Location: [place] Reason for EMG: c/o weakness in bilateral [...] nature of the test. documented in this encounterBothwell Regional Health [id number] History of Present illness Narrative* Corby Larsen DO - 09/21/2024 11:30 AM EST Images from the original note were not included. Chief Complaint: muscle weakness and imbalance Subjective hSazia Chou, 33 y.o., female Patient presents today [...] typically knows very well. She works at [employer] and will forget what goes on [employer] at times. She also reports lower back [...] , wrist extensors , wrist flexor , broadcast maintenance engineer strength 5/5. LUE Strength deltoid , biceps , triceps , wrist extensors , wrist flexor , broadcast maintenance engineer strength 5/5. RLE Strength illopsoas, quadriceps, tibialis [...] on 07/09/23: [place] [facility] [place]: Opening pressure of 23 cm of CSF, CSF testing was unremarkable MRI brain and MR ven[place] [facility] [place] unremarkable. Assessment/Plan Diagnoses and all orders for this visit: Ataxia It is my impression that patient has abnormal zrwayz-ap-jxtv testing and feels like she is walking [...] [place] [facility] [place]. Paresthesia Patient continues to complain [...] of mental health issues documented in this encounterBothwell Regional Health [id number] Evaluation + Plan note Diagnostic Tests Pending * Vitamin A Level 09/20/24 [facility] [id number] Radiology Diagnostic [facility] [place] [address] [place] [address] Scan Report Signed Patient: Shazia Chou MR#: [id number] : 1990 Acct:[id number] Age/Sex: 33 / F ADM Date: 5 Loc: ER Room: Type: [facility] ER Attending Dr: Copies to: Sailaja Anderson APRN~ Ordering Provider: Sailaja Anderson APRN Date of Service: 09/15/24 CT/CT angio head: weakness ([id number]) CT/CT angio neck: weakness ([id number]) CT/CT head/brain wo con: weakness CT head/brain [...] Wiley Shetty M.D.09/15/2024 3:56 PM Dictation Location: [facility]- Transcribed By: MARKY 09/15/24 1551 Dictated By: Wiley Shetty II, MD 09/15/24 1545 Signed By: 09/15/24 8650 [facility] Work Phone: [phone] NotePatient Education Mental and Behavioral Health Myofascial [...] these instructions at home: Medicines ??? Take kuqd-lwo-hiacffn and prescription medicines only as told by your health care provider. ??? Ask your health care provider if the medicine prescribed to you: ? Requires you to avoid driving or using machinery. ? Can cause constipation. You may need to take these actions to prevent or treat constipation: ? Drink enough fluid to keep your urine pale yellow. ? Take oard-yon-ypvdtwn or prescription medicines. ? Eat foods that [...] ??? Do not use (more content not included)...[facility] 09-13-2024 Miscellaneous Notes* Result Encounter Note - Aleah Howard MD - 09/13/2024 9:45 AM EST Shazia your echocardiogram shows normal heart pump function and valves, we will discuss more at upcoming visit. documented in this encounterProMedica [facility]iance [facility] Work Phone: 1(481) 970-184912-31-2024 Progress note* Result Encounter Note - Aleah Howard MD - 09/13/2024 9:45 AM EST Shazia your echocardiogram shows normal heart pump function and valves, we will discuss more at upcoming visit. [facility] Work Phone: 1([phone]) 397-810512-23-2024 Telephone encounter Note* Telephone Encounter - Hilda Lemos RN - 09/05/2024 10:07 AM EST S- patient asked PCP to review labs B- recent ER visit 08/27/24 A- uploaded care everywhere. ER follow up phone call. R- Follow up scheduled 09/13 At [facility]. [facility] at [facility] reports. Patient will screenshot and send her lab work from the other hospitals in a Vendavo message CALL FOR ER FOLLOW UP: On this date and time, Shazia was seen at 08/27/24 at [facility] 08/22/[address] [facility] How is patient doing now? Lipase 271 at [facility] reports. Patient will screenshot and send her [...] updated care everywhere. RX: none Hilda KHALIL clerical aide teacher of Dr. Carson [facility] [address] [place] [address] phone [phone] fax [facility]12-23-2024 Miscellaneous Notes* Telephone Encounter - Hilda Lemos RN - 09/05/2024 10:07 AM EST S- patient asked PCP to review labs B- recent ER visit 08/27/24 A- uploaded care everywhere. ER follow up phone call. R- Follow up scheduled 09/13 At [facility]. Lipase 271 at [facility] [place] reports. Patient will screenshot and send her lab work from the other hospitals in a message CALL FOR ER FOLLOW UP: On this date and time, Shazia was seen at 08/27/24 at [facility] 08/22/[address] [facility] How is patient doing now? Lipase 271 at [facility] [place] reports. Patient will screenshot and send her [...] updated care everywhere. RX: none Hilda KHALIL clerical aide teacher of Dr. Carson [facility] [address] [place] [address] phone [phone] fax documented in this encounterCleveland Clinic [facility]12-12-2024 NoteHNO ID: [id number] Author: MARY JO TRINIDAD RN Service: ? Author Type: Registered Nurse Type: Progress Notes Filed: 08/25/2024 15:00 Note Text: [facility] EDYTA RN Patient identified by name and [...] FINDINGS/SUMMARY: None Patient Attributed To: QAE Payer: [employer] HAMMOND Action Taken: No action needed. Contact made with patient: No, Chart review only. Signature: Mary Jo Trinidad [facility]12-12-2024 History of Present illness Narrative* Mary Jo Trinidad RN - 08/25/2024 2:56 PM EST [facility] EDYTA RN Patient identified by name and [...] FINDINGS/SUMMARY: None Patient Attributed To: QAE Payer: [employer] STEPHANY Action Taken: No action needed. Contact made with patient: No, Chart review only. Signature: Mary Jo Trinidad RN documented in this encounterCleveland Clinic [facility]ucl[facility]12-12-2024 NotePatient Outreach (AMBCMG) SHAZIA CHOU ([id number]) 1990 F Date Time Provider Department 08/25/24 [...] Assessed Reason for Visit: ACM EDYTA RN [3311] Cmt: ED Utilization Review per request of [...] mg by mouth daily at bedtime. - ixoeskofjunk-bnp-frho-FA-vit K (BARIATRIC MULTIVITAMINS) 45 mg iron- 800 [...] Status:Closed by MARY JO TRINIDAD on 08/25/24[facility]12-05-[facility] Evaluation + Plan note Diagnostic Tests Pending * EBV Antibody Profile 08/18/24 * Jazmin Teixeira Ab Early Antigen 08/18/24 [facility] [id number] Telephone encounter Note* Telephone Encounter - Tevin Carson DO - 08/17/2024 3:12 PM EST The following approved medication requests have been transmitted electronically. Requested Prescriptions Pending Prescriptions Disp Refills lamoTRIgine (LAMICTAL) 25 mg tablet [Pharmacy Med Name: LAMOTRIGINE 25 MG TABLET] 360 tablet 0 Sig: Take 2 tablets by mouth two times a day. Tevin Carson DO [facility]12-04-2024 Miscellaneous Notes* Telephone Encounter - Tevin [...] advise. Jacinda Arreola MA, documented in this encounterCleveland Clinic [facility]12-04-2024 Telephone encounter Note * Telephone Encounter - Jacinda Arreola MA - 08/17/2024 2:42 PM EST Pt last seen 07/25/24. Pharmacy electronically requesting refills as follows: Requested Prescriptions Pending Prescriptions Disp Refills lamoTRIgine (LAMICTAL) 25 mg tablet [Pharmacy Med Name: LAMOTRIGINE 25 MG TABLET] 360 tablet 1 Sig: TAKE 2 TABLETS BY MOUTH TWICE A DAY Please review and advise. Jacinda Arreola MA, [facility]12-03-2024 NoteNormal sinus rhythm at 75 bpm normal intervals abnormal R wave progression cannot exclude previous anterior septal myocardial infarction, 1 ventricular premature beat is noted. 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 She is status post partial hysterectomy. She [...] lamoTRIgine (LAMICTAL) 50 mg, 2 times daily wvpzfjylxyrt-cpf-cchl-FA-vit K (Bariatric Multivitamins) 45 mg iron- 800 [...] already been to the emergency room in [place] for her symptoms. Follow-up after testing Discussed the impact of nicotine. Will continue to address at every visit. She was advised and encouraged to work on nicotine cessation. Provider Attestation - Scribe documentation Scribe Attestation By signing my name below, I, Rita BlueChino Kaplan LPN attest that this documentation has been prepared under the direction and in the presence of Aleah Howard MD. All medical record entries made by the Scribe were at my direction and personally dictated by me. Ihave reviewed the chart and agree that the record accurately reflects my personal performance of the history, physical exam, discussion and plan. documented in this encounterProMedica Defiance [facility] Work Phone: [phone]) 473-111211-25-2024 Instructions* Patient Instructions* Rita Knowles LPN - [...] Provided instructions on exercise. documented in this encounterProMedica Defiance [facility] Hospital Work Phone: 1(817) 482-672511-11-2024 NoteHNO ID: [id number] Author: TEVIN CARSON, DO Service: ? Author Type: Physician Type: Progress Notes Filed: 07/25/2024 16:57 Note Text: [facility] Medicine Visit Assessment and Plan 1. [...] appointment. She is scheduled to see a stoker installer at for this. ROS: As per HPI. [...] and Affect: Mood normal. Behavior: Behavior normal.[facility]11-11-2024 History of Present illness Narrative* Tevin Carson DO - 07/25/2024 3:[address] [facility] Medicine Visit Assessment and Plan 1. [...] appointment. She is scheduled to see a stoker installer at for this. ROS: As per HPI. [...] normal. Behavior: Behavior normal. documented in this encounterCleveland Clinic [facility]11-08-2024 Telephone encounter Note * Telephone Encounter - Tevin Carson DO - 07/22/2024 12:27 PM EST Agree with in office evaluation, needs to go to ED if symptoms worsen Tevin Carson DO [facility] Work Phone: [phone]) 112-177711-08-2024 Miscellaneous Notes* Telephone Encounter - Tevin Carson [...] s/p hyster Protocols used: Anxiety and Panic Kjtvwo-MILTQ-GD Request/Response - Patient scheduled for ThursdayJul [address] Carson (20 minutes). Patient is alsoscheduled for 40 minutes on ThursdayJul [address] Carson. I did not cancel the Thursday appt in case a 40 min follow up would be appropriate. Please advise if needed. documented in this encounterCleveland Clinic [facility]11-08-2024 Telephone encounter Note * Telephone Encounter [...] s/p hyster Protocols used: Anxiety and Panic Llnogt-LORYO-MW Request/Response - Patient scheduled for ThursdayJul [address] Carson (20 minutes). Patient is alsoscheduled for 40 minutes on ThursdayJul [address] Carson. I did not cancel the Thursday appt in case a 40 min follow up would be appropriate. Please advise if needed. [facility]11-08-2024 Telephone encounter Note* Telephone Encounter - Hilda Lemos RN - 07/22/2024 11:34 AM EST See nurse triage encounter. [facility]11-08-2024 Miscellaneous Notes* Telephone Encounter - Hilda Lemos RN - 07/22/2024 11:34 AM EST See nurse triage encounter. documented in this encounterCleveland Clinic [facility]ucl[facility] Hospital10-28-2024 Instructions* Patient Education - Ev Herman RT(R) - 07/11/2024 9:29 AM EDT Post procedure written instructions were given to patient. [facility]10-28-2024 Miscellaneous Notes* Patient Education - Ev Herman RT(R) - 07/11/2024 9:29 AM EDT Post procedure written instructions were given to patient. documented in this encounterCleveland Clinic [facility]ucl[facility] Hospital10-28-2024 NoteHNO ID: [id number] Author: KHRAMKOVA, EV, RT(R) Service: Radiology Author Type: Navy Seal Type: Patient Education Filed: 07/11/2024 09:29 Note Text: Post procedure written instructions were given to patient.[facility]10-21-2024 History of Present illness Narrative* [...] PATIENT PRESENTS WITH AN IMPLANTABLE OR ATTACHED SURFACE SUPERVISOR: No RADIOLOGY DEPARTMENT: Mammography PERIPHERAL IV DATA: Not applicable SIGNED BY: Stewart Brewer July 04, 2024 12:32 PM documented in this encounterCleveland Clinic Eucl[facility] Hospital10-21-2024 NoteHNO ID: [id number] Author: OMAR SOLIMAN Mammo Tech Service: ? Author Type: Navy Seal Type: Progress Notes Filed: 07/04/2024 12:32 Note [...] PATIENT PRESENTS WITH AN IMPLANTABLE OR ATTACHED SURFACE SUPERVISOR: No RADIOLOGY DEPARTMENT: Mammography PERIPHERAL IV DATA: Not applicable SIGNED BY: Stewart Brewer July 04, 2024 12:32 [facility]10-21-2024 NoteHNO ID: [id number] Author: FATUMA TYLER APRN.POLICY ADVISER Service: ? Author Type: Nurse Practitioner Type: Progress Notes Filed: 07/06/2024 08:25 Note Text: MEDICAL BREAST PATIENT NAME: Shazia Chou July 04, 2024 REFERRAL: She is self referred for an opinion regarding regarding LEFT breast painful lump and bloody nipple discharge HISTORY of PRESENT ILLNESS: Shazia Chou is a 33 year old premenopausal female who presents to the [facility] today for evaluation of [...] Test performed by chemiluminescent immunoassay. Performed at [facility],[address] [place] [address] She takes a multivitamin daily. BMD: No PERSONAL BREAST HISTORY: Breast biopsy: No Breast cysts: No Breast surgery: No Breast cancer: No CANCER SURVEILLANCE: Mammograms: Date in Epic: 12/09/23; results - Negative-Left breast only Breast MRI: Date in [facility]: 06/10/22; results - Negative Colonoscopy: No RISK [...] discussed with the Patient or Patient's Authorized Chili Pepper Grinder. As applicable, any other physician, advance practice provider, medical student, or other health professional student that will be observing or involved in (more content not included)...[facility]10-21-2024 History of Present illness Narrative* Fatuma Tyler APRN.POLICY ADVISER - 07/04/2024 10:52 AM EDT MEDICAL BREAST PATIENT NAME: Shazia Chou July 04, 2024 REFERRAL: She is self referred for an opinion regarding regarding LEFT breast painful lump and bloody nipple discharge HISTORY of PRESENT ILLNESS: Shazia Chou is a 33 year old premenopausal female who presents to the [facility] today for evaluation of [...] Test performed by chemiluminescent immunoassay. Performed at [facility],[address],[place] [address] She takes a multivitamin daily. BMD: No PERSONAL BREAST HISTORY: Breast biopsy: No Breast cysts: No Breast surgery: No Breast cancer: No CANCER SURVEILLANCE: Mammograms: Date in [facility]: 12/09/23; results - Negative-Left breast only Breast MRI: Date in [facility]: 06/10/22; results - Negative Colonoscopy: No RISK [...] discussed with the Patient or Patient's Authorized Chili Pepper Grinder. Asapplicable, any other physician, advance practice provider, medical student, or other health professional student that will be observing or involved in the sensitive examination for educational or training purposes was discussed with the Patient or Authorized Chili Pepper Grinder. The Patient or Authorized Chili Pepper Grinder has agreed to proceed with the sensitive [...] which included preparing to see the patient, szga-gq-araw patient care, completing clinical documentation, obtaining and/or reviewing separately obtained history, performing a medically appropriate examination, counseling and educating the patient/family/caregiver, ordering medications, tests, or procedures, and communicating results to the patient/family/caregiver. Fatuma Tyler APRN.IRENE Medical Breast Specialist July 04, 2024 CC: Tevin Carson [address] [place] [address] documented in this encounterCleveland Clinic [facility]ucl[facility]10-21-2024 Instructions* Patient Instructions* Naldo Borrego MA - [...] Tyler CNP, Medical Breast Specialist Sofia Shelton, RN [phone] ([place]) Naldo Borrego, Pneumatic Hoist Operator [phone] ([place]) documented in this encounterCleveland Clinic [facility]10-18-2024 Instructions* Patient Instructions* Tevin Carson DO - [...] me in 1 month documented in this encounterCleveland Clinic [facility]ucl[facility]10-18-2024 NoteHNO ID: [id number] Author: TEVIN CARSON DO Service: ? Author Type: Physician Type: Progress Notes Filed: 07/01/2024 12:18 Note Text: [facility] Family Medicine Visit Assessment and Plan [...] rhythm with sinus arrhythmia at 73 BPM, AL interval 138 ms, normal QRS, poor quality [...] PTH INTACT - VITAMIN D 25 KRISHNA CarsonDO 07/01/2024 Subjective Patient is a 33 year [...] and Memory: Cognition normal. Comments: Slightly anxiousAdena Regional Medical Center10-18-2024 History of Present illness Narrative* Tevin Carson, - 07/01/2024 11:03 AM EDT [facility] Family Medicine Visit Assessment and Plan [...] rhythm with sinus arrhythmia at 73 BPM, AL interval 138 ms, normal QRS, poor quality [...] normal. Comments: Slightly anxious documented in this encounterCleveland Clinic [facility]ucl[facility]10-18-2024 Telephone encounter Note * Telephone Encounter - Naldo Borrego MA - 07/01/2024 10:23 AM EDT Shazia returned my call from yesterday about her appointment on Thursday. Patient stated that she had a mammogram and US done at [facility] recently because she felt a [...] to one anotheror not. 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 I asked her to arrive 30 minutes early to appointment so that we can start uploading the disk and she can fillout paperwork. She was appreciative for the call and information. Naldo Borrego MA [facility]10-18-2024 Miscellaneous Notes* Telephone Encounter - Naldo Borrego MA - 07/01/2024 10:23 AM EDT Shazia returned my call from yesterday about her appointment on Thursday. Patient stated that she had a mammogram and US done at [facility] recently because she felt a lump in [...] to one anotheror not. 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 I asked her to [...] me. Naldo Borrego MA documented in this encounterCleveland Clinic [facility]10-17-2024 Telephone encounter Note * Telephone Encounter - Naldo Borrego MA - 06/30/2024 2:43 PM EDT I called and left a message for the patient regarding her appointment 07/04 with Mrs. Tyler in the breast center. I left my contact information for her to reach me. Naldo Borrego MA [facility]09-16-2024 NoteHNO ID: [id number] Author: ORLANDO MARTINEZ MA Service: ? Author Type: Pneumatic Hoist Operator Type: Progress Notes Filed: 05/30/2024 13:52 Note Text: POPULATION HEALTH NAVIGATION OUTREACH Action/FYI Patient called back and I scheduled her for a ED follow up with POLICY ADVISER in office. Also scheduled patient for est care appointment. Updated PCP field PER Navigation rules. ACM Reason for Outreach Community Monitoring/Network Navigator Pools AND Phone Line: ACM Patient Contacted: Spoke to patient/parent/or legal guardian Patient identified by name and : Yes Community Monitoring/Network Navigator Pools AND Phone Line actions taken: Patient scheduled: ER Follow-up Establish Care Appointment 05/31/2024 in [facility] with LISHA BIANCHI - ED follow up 07/01/2024 in [facility] with TEVIN CARSON - est care 08/05/2024 in [facility] with ROBERTO MCKEON - Fhx of pancreatic cancer, Phx of pancreatic mass Action taken: Marked in OnBase for Schedulers PCP field updated Navigation Signature: Orlando Martinez MA May 30, 2024 1:44 [facility]09-16-2024 History of Present illness Narrative* Orlando Martinez MA - 05/30/2024 1:37 PM EDT POPULATION HEALTH NAVIGATION OUTREACH Action/FYI Patient called back and I scheduled her for a ED follow up with POLICY ADVISER in office. Also scheduled patient for est care appointment. Updated PCP field PER Navigation rules. ACM Reason for Outreach Community Monitoring/Network Navigator Pools & Phone Line: ACM Patient Contacted: Spoke to patient/parent/or legal guardian Patient identified by name and : Yes Community Monitoring/Network Navigator Pools & Phone Line actions taken: Patient scheduled: ER Follow-up Establish Care Appointment 05/31/2024 in [facility] with LISHA BIANCHI - ED follow up 07/01/2024 in [facility] with TEVIN CARSON - est care 08/05/2024 in [facility] with ROBERTO MCKEON - Fhx of pancreatic cancer, Phx of pancreatic mass Action taken: Marked in OnBase for Schedulers PCP field updated Navigation Signature: Orlando Martinez MA May 30, 2024 1:44 PM * Orlando Martinez MA - 05/30/2024 1:01 PM EDT [facility] NAVIGATION OUTREACH Action/FYI Reason for review or outreach: Chart Review Edyta Priority Emergency Department Utilization REQUESTED ACTION/FYI: Please see ED Utilization summary below: A follow-up appointment is not noted in patient's record. We are forwarding this patient to Network Navigation to schedule a [facility] ED 05/23/24 PCP follow-up appointment. Thank you 1st attempt- Called and left a voicemail for patient to call me back directly. [employer] message sent Postponing for 2 days. [facility] Reason for Outreach Community Monitoring/Network Navigator Pools & Phone Line: [facility] Patient Contacted: Unable or unnecessary to reach patient: Left message SHEEXhart message sent Navigation Signature: Orlando Martinez MA [...] patient to Network Navigation to schedule a [facility] ED 05/23/24 PCP follow-up appointment. Thank you Exclusion Criteria - Does not meet exclusion criteria ED DIAGNOSES/REASON(S) FOR ED USE: [facility] OTHER FINDINGS/SUMMARY: Unable to locate ED discharge summary in Care everywhere Patient Attributed To: KERMIT Payer: Mauricio HAMMOND Action Taken: Referrals/Routed: Population Health Navigation: Appointment. Router to COMMUNITY MONITORING PSS POOL [[phone]] Contact made with patient: No, Chart review only. Signature: Lenora Yee MSN, RN, [facility] Primary Care Transitional Tractor Engine Assembler [facility] [phone] documented in this encounterCleveland Clinic Euclid Hospital09-16-2024 NoteHNO ID: [id number] Author: ORLANDO MARTINEZ MA Service: ? Author Type: Pneumatic Hoist Operator Type: Progress Notes Filed: 05/30/2024 13:07 Note Text: POPULATION HEALTH NAVIGATION OUTREACH Action/FYI Reason for review or outreach: Chart Review Edyta Priority Emergency Department Utilization REQUESTED ACTION/FYI: Please see ED Utilization summary below: A follow-up appointment is not noted in patient's record. We are forwarding this patient to Network Navigation to schedule a [facility] ED 05/23/24 PCP follow-up appointment. Thank you 1st attempt- Called and left a voicemail for patient to call me back directly. [employer] message sent Postponing for 2 days. [facility] Reason for Outreach Community Monitoring/Network Navigator Pools AND Phone Line: [facility] Patient Contacted: Unable or unnecessary to reach patient: Left message DocASAP message sent Navigation Signature: Orlando Martinez MA May 30, 2024 1:01 [facility]09-16-2024 NoteHNO ID: [id number] Author: LENORA YEE RN Service: ? Author [...] patient to Network Navigation to schedule a [facility] ED 05/23/24 PCP follow-up appointment. Thank you Exclusion Criteria - Does not meet exclusion criteria ED DIAGNOSES/REASON(S) FOR ED USE: [facility] OTHER FINDINGS/SUMMARY: Unable to locate ED discharge summary in Care everywhere Patient Attributed To: KERMIT Payer: [employer] HAMMOND Action Taken: Referrals/Routed: Population Health Navigation: Appointment. Router to [facility] [[phone]] Contact made with patient: No, Chart review only. Signature: Lenora Yee MSN, RN, [facility] Primary Care Transitional Tractor Engine Assembler [facility] [phone] Regional Medical Center09-16-2024 NotePatient Outreach ([facility]) SHAZIA CHOU ([id number]) 1990 F Date Time Provider Department 05/30/24 [...] patient to Network Navigation to schedule a [facility] ED 05/23/24 PCP follow-up appointment. Thank you Exclusion Criteria - Does not meet exclusion criteria ED DIAGNOSES/REASON(S) FOR ED USE: Standard ED OTHER FINDINGS/SUMMARY: Unable to locate ED discharge summary in Care everywhere Patient Attributed To: KERMIT Payer: Mauricio HAMMOND Action Taken: Referrals/Routed: Population Health Navigation: Appointment. Router to COMMUNITY MONITORING PSS POOL [[phone]] Contact made with patient: No, Chart review only. Signature: Lenora KHALIL, RN, [facility] Primary Care Transitional Tractor Engine Assembler [facility] [phone] Orlando Martinez MA 05/30/2024 1:07 PM Addendum POPULATION HEALTH NAVIGATION OUTREACH Action/FYI Reason for review or outreach: Chart Review Edyta Priority Emergency Department Utilization REQUESTED ACTION/FYI: Please see ED Utilization summary below: A follow-up appointment is not noted in patient's record. We are forwarding this patient to Network Navigation to schedule a [facility] ED 05/23/24 PCP follow-up appointment. Thank you 1st attempt- Called and left a voicemail for patient to call me back directly. ADR Software message sent Postponing for 2 days. ACM Reason for Outreach Community Monitoring/Network Navigator Pools AND Phone Line: ACM Patient Contacted: Unable or unnecessary to reach patient: Left message DocASAP message sent Navigation Signature: Orlando Martinez MA May 30, 2024 1:01 PM Orlando Martinez MA 05/30/2024 1:52 PM Addendum POPULATION HEALTH NAVIGATION OUTREACH Action/FYI Patient called back and I scheduled her for a ED follow up with POLICY ADVISER in office. Also scheduled patient for est care appointment. Updated PCP field PER Navigation rules. ACM Reason for Outreach Community Monitoring/Network Navigator Pools AND Phone Line: ACM Patient Contacted: Spoke to patient/parent/or legal guardian Patient identified by name and : Yes Community Monitoring/Network Navigator Pools AND Phone Line actions taken: Patient scheduled: ER Follow-up Establish Care Appointment 05/31/2024 in [facility] with LISHA BIANCHI - ED follow up 07/01/2024 in [facility] with TEVIN CARSON - est care 08/05/2024 in [facility] with ROBERTO MCKEON - Fhx [...] Assessed Reason for Visit: ACM EDYTA RN [[id number]] Cmt: ED Utilization review per request of [...] mg by mouth daily at bedtime. - rprbbnwhsirz-shx-ardc-FA-vit K (BARIATRIC MULTIVITAMINS) 45 mg iron- 800 mcg-120 mcg cap Take by mouth. Problem List As Of Date 05/30/2024 Noted Resolved Poor growth, affecting management of moth*07/03/2008 03/08/2024 Idiopathic intracranial hypertension [G93.2] 11/20/2022 Primary hypertension [I10] 11/20/2022 03/08/2024 Depression [F32.A] 11/20/2022 Hx of gastric bypass [Z98.84] 11/20/2022 H/O foot surgery [Z98.890] 11/20/2022 Bipolar affective d (more content not included)...[facility] 05-12-2024 NoteHNO ID: [id number] Author: ?, ?, ? Service: ? Author Type: ? Type: Progress Notes Filed: 05/12/2024 17:42 Note Text: MCM sent to pt advising her that her Breast MRI has still not been scheduled. Pancreas was completed. Kimberli Malave [facility]Aden[facility]08[facility] History of Present illness Narrative* Lauren Capellan LPN - 04/26/2024 3:43 PM EDT Outreach message sent documented in this encounterCleveland [facility]08-13-2024 NoteHNO ID: [id number] Author: LAUREN CAPELLAN LPN Service: ? Author Type: LICENSED NURSE Type: Progress Notes Filed: 04/26/2024 15:43 Note Text: Outreach message sentAdena [facility] Center08-13-2024 NotePatient Outreach ([facility] SHAZIA CHOU ([id number]) 1990 F Date Time Provider Department 04/26/24 EL[facility]ES [facility] During your visit today, we recorded the [...] mg by mouth daily at bedtime. - lcoijvglmylu-rhz-axlg-FA-vit K (BARIATRIC MULTIVITAMINS) 45 mg iron- 800 [...] Encounter Status:Closed by LAUREN CAPELLAN on 04/26/24[facility] 03-08-[facility] Hospital Discharge instructions Patient [...] Follow these instructions at home: Medicines Take kzwy-pew-zhizuxo and prescription medicines only as told by your health care provider. Ask your health care provider if the medicine prescribed to you: ?Requires you to avoid driving or using heavy machinery. ?Can cause constipation. You may need to take these actions to prevent or treat constipation: ?Drink enough fluid to keep your urine pale yellow. ?Take ukze-kdg-rsvekzo or prescription medicines. ?Eat foods that are [...] provider. Document Revised: 12/08/2022 Document Reviewed: 01/24/2020 [employer] Patient Education 2022 [employer]. 03/08/2024 15:36:59 Head Injury, Adult Head Injury, [...] Ask your health care provider for a knij-hk-rnnn plan for gradually returning to activities. Ask [...] your friends, family, a trusted colleague, and group worker about your injury, symptoms, and restrictions. Have them watch for any new or worsening problems. General instructions Take vpop-jhp-sbcfmuv and prescription medicines only as told by [...] provider. Document Revised: 07/13/2020 Document Reviewed: 07/13/2020 [employer] Patient Education 2022 [employer]. 03/08/2024 15:36:59 Muscle Strain Muscle Strain A [...] is not too tight. General instructions Take leuq-fjt-qdbppzh and prescription medicines only as told by [...] provider. Document Revised: 11/18/2021 Document Reviewed: 11/18/2021 [employer] Patient Education 2022 [employer]. Follow Up Care 03/08/2024 13:07:25 With:David Gleasonmiguel Address: [address], [address] [place] [address]- [phone] Business (1) When:03/11/2024 15:24:14 With:Jennie Durand Address: [address] [place] [address]- Business (1) When:Within 3 Day(s) [facility]06-25-2024 History of Present illness Narrative* Sofia Benavidez [...] 2024 TIME: 10:01 AM * Mirlande Diaz, network/telecom engineer - 03/08/2024 10:00 AM EDT Radiology Service [...] PATIENT PRESENTS WITH AN IMPLANTABLE OR ATTACHED SURFACE SUPERVISOR: No RADIOLOGY DEPARTMENT: MR; Exam(s) Completed: Body: Pancreas/Biliary PERIPHERAL IV DATA: Site assessment: Clean,Dry and Intact, Site disposition Discontinued SIGNED BY: MARIXA Tovar March 08, 2024 10:35 AM documented in this encounterCleveland Clinic Eucl[facility]06-25-2024 NoteHNO ID: [id number] Author: MIRLANDE DIAZ MRI Tech Service: Radiology Author Type: [employer] Type: Progress Notes Filed: 03/08/2024 10:36 Note [...] PATIENT PRESENTS WITH AN IMPLANTABLE OR ATTACHED SURFACE SUPERVISOR: No RADIOLOGY DEPARTMENT: MR; Exam(s) Completed: Body: Pancreas/Biliary PERIPHERAL IV DATA: Site assessment: Clean,Dry and Intact, Site disposition Discontinued SIGNED BY: MARIXA Tovar March 08, 2024 10:35 [facility]06-25-2024 NoteHNO ID: [id number] Author: SOFIA BENAVIDEZ RN Service: Nursing Author [...] Chou DATE: March 08, 2024 TIME: 10:01 [facility]06-25-2024 Instructions* Patient Instructions* Elia Baires DO - 03/08/2024 8:47 AM EDT 1) Schedule appointment with Austin Mata to discuss Adipex. 2) Schedule MRI of breast 3) I can refill the klonopin as needed. 4) Try steroid as needed twice daily 5) Follow-up in [address] Carson to establish care documented in this encounterCleveland Clinic Eucl[facility]06-25-2024 NoteHNO ID: [id number] Author: ELIA BAIRES DO Service: ? Author [...] was able to establish with psychiatry at [facility]. Says they stopped her Rexulti and switch to Lamictal 75 mg daily. Says this has dramatically improved her symptoms. Currently taking duloxetine 60 mg twice daily and trazodone 50 mg at bedtime. She says that she has only needed to use her clonazepam a few times a week. H (more content not included)...[facility]06-25-[facility] History of Present illness Narrative* [...] was able to establish with psychiatry at [facility]. Says they stopped her Rexulti and switch [...] updated today in the History tab of [facility]. REVIEW OF SYSTEMS: All other reviewed and [...] Dr. Elia Baires DO documented in this encounterCleveland Clinic Eucl[facility]04-22-2024 Instructions* Patient Instructions* Elia Baires DO - 01/04/2024 10:16 AM EDT 1) Give urine sample today. 2) Placed lab orders. Fast for 12 hours then get labs. 3) I would follow-up with your psychiatrist in January 4) Physical in 1-2 months. documented in this encounterCleveland Clinic [facility]ucl[facility]04-22-2024 NoteHNO ID: [id number] Author: ELIA BAIRES DO Service: ? Author [...] She says that she is originally from [facility] however came up to here today to [...] to establish with a new psychiatrist at [facility] in [place]. She also sees a counselor weekly. Current [...] No psychosis or maryam. Dr. Elia Baires, [facility]04-22-2024 History of Present illness Narrative* Elia [...] She says that she is originally from [facility] however came up to here today to [...] to establish with a new psychiatrist at [facility] in [place]. She also sees a counselor weekly. Current [...] Dr. Elia Baires DO documented in this encounterCleveland Clinic [facility]01-05-2024 Hospital Discharge instructions* Discharge Instructions* Gamaliel [...] questions, PLEASE call your doctor or the [facility] at documented in this encounterB[facility] History of Present illness Narrative* Ce Bustamante RN - 09/16/2023 1:25 PM EST PAT phone call for /EGD completed with pt. Date/time/location (entrance C) of surgery/procedure verified with pt. NPO after MN status verified with pt. Need for hook up driver ( ) verified with pt. Instructed pt to take a shower the AM of surgery/procedure and to avoid lotions, creams, jewelry. Encouraged pt to avoid artificial nails and/or nailpolish. Instructed pt to take BP meds with a small sip of water prior to procedure/surgery. documented in this encounterBON PIKE [facility]11-30-2023 Evaluation note* Encounter Date Diagnosis Assessment Notes Treatment Notes Treatment Clinical Notes Jul, Pancreatic cyst (ICD-10 - K86.2) [facility] Other 10-25-2023 Evaluation note* Encounter Date Diagnosis [...] stop smoking. Jun, Smoker (ICD-10 - F17.200) [facility] Other 09-27-2023 NoteHNO ID: [id number] Author: Eileen Alvarez MD Service: ? Author Type: Physician Type: Progress Notes Filed: 06/10/2023 3:39 PM Note Text: [facility] Follow Up / Established Virtual Visit I have communicated my name and active licensure. The patient's identity and physical location were verified at the time of this visit. 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 [...] she agreed. She needs to follow with senior research executive every 6 months. In some patients with [...] her eyes. She has never seen an senior research executive. CSF protein 24, Glu 55, Pro 28, [...] cognition, memory, speech. Cr (more content not included)...[facility] [id number] Miscellaneous Notes * Telephone Encounter - Clara [...] A DAY IN A WEEK Pharmacy Name: [facility] Phone #: [phone] Fabby Cassidy documented in this encounterCleveland Clinic Eucl[facility]07-06-2023 Evaluation + Plan note Diagnostic Tests Pending * Zinc Level 03/19/23 * PTH Intact 03/19/23 * Vitamin A Level 03/19/23 * Vitamin B1 03/19/23 Future Scheduled Tests Laboratory* CBC w/ Auto Diff 07/21/22 Radiology* MA Mamm Screen w/CAD if perf and 3D Tanmay 04/21/22 [facility]05-04-2023 Hospital Discharge instructions Patient Education 01/15/2023 13:37:29 [...] Follow these instructions at home: Medicines Take rrqv-wfy-fowckay and prescription medicines only as told by [...] provider. Document Revised: 11/14/2021 Document Reviewed: 11/14/2021 [employer] Patient Education 2022 [employer]. Follow Up Care 01/15/2023 10:48:45 With:Jennie Durand Address: [address], [facility] [address] [place] [address]- Business (1) When:01/18/2023 13:32:37 [facility]05-04-2023 Evaluation + Plan noteExtracted from: Title:ED Note [...] perf and 3D Tanmay 04/21/22 [facility]03-31-2023 Miscellaneous Notes* Telephone Encounter - Clara Durbin RN - 12/12/2022 3:03 PM EDT Spoke with patient and informed that per [facility] pharmacy, there are remaining refills on her [...] A DAY IN A WEEK Pharmacy Name: 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 [facility]03-24-2023 Evaluation + Plan noteExtracted from: Title:ANES Post-operative Note - General Author: Vu Maria Jr., DO Date:12/05/22 Plan Transfer/Discharge: Transfer/Discharge Discharge when meets criteria ( From PACU to Ambulatory Surgery Unit, and To home ). Extracted from: Title:ANES Pre-operative Note - Adult Author:Vu Chowdhury Jr., DO Date:12/05/22 Plan [place] [employer] of Anesthesiologists (ASA) physical status classification: Class II. Anesthetic Preoperative Plan: Anesthesia General. Future Appointments Appointment Date:01/02/2023 10:00:00 AM Scheduled Provider:Nakia Shah Location:[facility] Appointment Type: Open Future Scheduled Tests Laboratory* CBC w/ Auto Diff 07/21/22 Radiology* MA Mamm Screen w/CAD if perf and 3D Tanmay 04/21/22 [facility]03-09-2023 NoteHNO ID: [id number] Author: Eileen Alvarez MD Service: ? 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 She has never seen an senior research executive. CSF protein 24, Glu 55, Pro 28, [...] congenital deformity, seen in the [facility] for: 1. [...] she agreed. She needs to follow with senior research executive every 6 months. In some patients with [...] --start acetazolamide (diamox 500m (more content not included)...[facility] [id number] Instructions* Patient Instructions* Eileen Alvarez MD - [...] from the original note were not included. 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 She has never seen an senior research executive. CSF protein 24, Glu 55, Pro 28, [...] congenital deformity, seen in the [facility] for: 1. [...] she agreed. She needs to follow with senior research executive every 6 months. In some patients with [...] Take 40 mg by mouth once daily. mpjgchtbfvpv-gir-nfzl-FA-vit K (BARIATRIC MULTIVITAMINS) 45 mg iron- 800 [...] % Lymph% 20 15.9 - 47.3 % Barnes% 6 0.0 - 12.0 % Eosin% 3 0.0 - 6.6 % Baso% 1 0.0 - 1.2 % Abs Neut (ANC) 7.64 (H) 1.45 - 7.50 k/uL Abs Lymph 2.18 1.00 - 4.00 K/uL Abs Barnes 0.65 0.00 - 0.86 k/uL Abs Eosin [...] which included preparing to see the patient, pttu-qp-nhaa patient care, completing clinical documentation, obtaining and/or reviewing separately obtained history, performing a medically appropriate examination, counseling and educating the pat ient/family/caregiver, ordering medications, tests, or procedures, independently interpreting results (not separately reported), communicating results to the patient/family/caregiver, and care coordination (not separately reported). Eileen Alvarez MD documented in this encounterCleveland Clinic Euclid [...] height. This can be done either in [place]ese ([place] or metric measurements. Note that charts are available to help you find your BMI quickly and easily without having to do these calculations yourself. To calculate your BMI in [place]ese ([place] measurements, your health care provider will: [...] medical problems. BMI can be measured using Sudanese measurements or metric measurements. To interpret your [...] 05/12/2005 Document Revised: 08/13/2018 Document Reviewed: 07/14/2018 [employer] Patient Education 2020 [employer]. 11/03/2022 13:28:26 Tobacco Use Disorder Tobacco Use [...] reduces withdrawal symptoms. NRT is available as: ?Mcta-ksv-slzakwc gums, lozenges, and skin patches. ?Prescription mouth [...] recovery for many people. General instructions Take qoct-yve-lmrzzbb and prescription medicines only as told by your health care provider. Check with your health care provider before taking any new prescription or qpwb-kza-mlqnaxt medicines. Decide on a friend, family member, or smoking quit-line (such as 0-190-VVWV-NOW in the [place] that you can call [...] 05/06/2005 Document Revised: 08/18/2018 Document Reviewed: 08/18/2018 [employer] Patient Education 2020 [employer]. 11/03/2022 13:28:23 Alcohol Abuse and Dependence Information, [...] for Disease Control and Prevention: www.cdc.gov National Almond on Alcohol Abuse and Alcoholism: www.niaaa.nih.gov Alcoholics [...] 08/25/2017 Document Revised: 12/20/2019 Document Reviewed: 11/08/2019 [employer] Patient Education 2020 [employer] 11/03/2022 13:28:19 BMI for Adults BMI [...] height. This can be done either in [place]ese ([place] or metric measurements. Note that charts are available to help you find your BMI quickly and easily without having to do these calculations yourself. To calculate your BMI in [place]ese ([place] measurements, your health care provider will: [...] medical problems. BMI can be measured using Sudanese measurements or metric measurements. To interpret your [...] 05/12/2005 Document Revised: 08/13/2018 Document Reviewed: 07/14/2018 [employer] Patient Education 2020 [employer]. 10/27/2022 11:56:27 Alcohol Abuse and Dependence Information, [...] find support Your health care provider. SMART WiredBenefits: www.smartrecovery.org Therapy and support groups Local treatment centers or chemical dependency counselors. Local AA groups in your community: www.aa.org Where to find more information Centers for Disease Control and Prevention: www.cdc.gov National Almond on Alcohol Abuse and Alcoholism: www.niaaa.nih.gov Alcoholics [...] 08/25/2017 Document Revised: 12/20/2019 Document Reviewed: 11/08/2019 [employer] Patient Education 2019 [employer]. Follow Up Care 10/15/2022 11:28:56 With:Nakia Shah Address: [address] [place] [address], [facility] [address] [place] [phone]- When:Within 2 Month(s) Comments:f/u smoking cessation and BP [facility] 01-11-2023 Hospital Discharge instructions [...] reduces withdrawal symptoms. NRT is available as: ?Kreo-amr-hatmglk gums, lozenges, and skin patches. ?Prescription mouth [...] recovery for many people. General instructions Take koru-vun-ckxbdfe and prescription medicines only as told by your health care provider. Check with your health care provider before taking any new prescription or mjwp-ngu-wbrpkfy medicines. Decide on a friend, family member, or smoking quit-line (such as 2-931-JDVQ-NOW in the [place] that you can call [...] 05/06/2005 Document Revised: 08/18/2018 Document Reviewed: 08/18/2018 [employer] Patient Education 2020 [employer]. 09/24/2022 07:23:47 BMI for Adults BMI for [...] height. This can be done either in [place]ese ([place] or metric measurements. Note that charts are available to help you find your BMI quickly and easily without having to do these calculations yourself. To calculate your BMI in [place]ese ([place] measurements, your health care provider will: [...] medical problems. BMI can be measured using Sudanese measurements or metric measurements. To interpret your [...] 05/12/2005 Document Revised: 08/13/2018 Document Reviewed: 07/14/2018 [employer] Patient Education 2020 [employer]. 09/24/2022 07:23:45 Alcohol Use Disorder Alcohol Use [...] centers. Follow these instructions at home: Take fnaq-yrk-rtdrgzk and prescription medicines only as told by [...] 10/08/2005 Document Revised: 08/13/2018 Document Reviewed: 05/28/2017 [employer] Patient Education 2020 [employer]. 09/24/2022 07:23:42 Borderline Personality Disorder, Adult Borderline [...] with BPD should do these things: Take essw-nwy-jjrgjqf and prescription medicines only as told by [...] important. Where to find more information National [place] on Mental Illness: www.marivel.org [place]. National Almond of Mental Health: www.nimh.nih.gov Contact a health [...] 12/16/2011 Document Revised: 08/13/2018 Document Reviewed: 11/05/2017 [employer] Patient Education 2020 [employer]. 09/24/2022 07:23:39 Managing Bipolar Disorder Managing Bipolar [...] Follow these instructions at home: Medicines Take ocwg-bsl-iumhuyi and prescription medicines only as told by your health care provider or pharmacist. Ask your pharmacist what oyvm-gah-qqgzivp cold medicines you should avoid. Some medicines [...] a problem, search for a local or [facility] care center. Public [...] Document Reviewed: 12/31/2017 Else[employer] Patient Education 2019 [employer]. Follow Up Care 09/16/2022 13:23:11 With:Aimee Walker CNP Address: [address] [place], [place] [address] [place] [address] [phone] When:3 months [facility] 12-09-2022 Hospital Discharge instructions Patient Education 08/22/2022 11:12:56 Tension Headache, Adult, Xeio-zv-Vgxe Tension Headache, Adult A tension headache is pain, pressure, or aching in your head. Tension headaches can last from 30 minutes to several days. Follow these instructions at home: Managing pain Take ziin-ses-nhmkeps and prescription medicines only as told by [...] 11/25/2010 Document Revised: 08/13/2018 Document Reviewed: 12/11/2017 [employer] Patient Education 2020 [employer]. Follow Up Care 08/14/2022 12:38:29 With:Rita SNOWDEN, IGGY Roberson, PED Address: [address], [facility] [place] [address] When:1 month only if needed Comments:40 mins [facility] 12-05-2022 Hospital Discharge instructions [...] feet clean and dry. General instructions Take pwyb-zwn-csyhhbm and prescription medicines only as told by [...] 09/26/2016 Document Revised: 06/16/2019 Document Reviewed: 06/16/2019 [employer] Patient Education 2020 [employer]. 08/18/2022 19:56:48 Foot Sprain Foot Sprain A [...] fully hardened. This may takeseveral hours. Take agvj-vak-zusecxl and prescription medicines only as told by [...] 02/20/2003 Document Revised: 09/04/2018 Document Reviewed: 09/04/2018 [employer] Patient Education 2020 [employer]. 08/18/2022 19:56:48 Elastic Bandage and RICE Therapy [...] limityour activities and whether you should start jtogh-rl-jfbqgu exercises for your injury. Ice Ice your [...] 02/20/2003 Document Revised: 05/21/2018 Document Reviewed: 05/21/2018 [employer] Patient Education 2020 [employer]. Follow Up Care 08/18/2022 17:21:15 With:Hilton Gillis Address: [address] [place], [place] [address] Business (1) When:08/21/2022 19:10:21 With:Aimee Walker Address:Unknown When:Within 3 Day(s) [facility]11-29-2022 Procedure [facility]11-29-2022 Progress note Author Lizzeth Malave [facility] August 12, 2022 10:46am Note Date/Time August 12, 2022 10:45am [facility] [address] [place], [place] [id number] Hospitalist Progress Note Signed Patient: Shazia Chou MR#: [id number] : 1990 Acct:[id number] Age/Sex: 31 / F Adm Date: 2 Loc: 4N Room: 1N0636-2 Type: ADM INOo Attending Dr: Lizzeth Malave MD Copies to: ~ Date of Service: 08/12/2022 Subjective Subjective Narrative: Shazia Chou is a 31yo F. She was transferred here last night from [facility] with worsening headache and blurry vision [...] Flu Vac Quad (36month+)Pf 0.5 Ml Syringe [id number] IM 08/13/22 09:01 .ONCE ONE Omeprazole 20 [...] signed by Lizzeth Malave MD> 08/12/22 1046 [facility] Work Phone: 1(708) 940-349711-29-2022 Consult note Author Kenrick Lee [facility] August 12, 2022 4:21pm Note Date/Time August 12, 2022 8:13am [facility] [address] [place] [address] Neurology Consult Note Signed Patient: Shazia Chou MR#: [id number] : 1990 Acct:[id number] Age/Sex: 31 / F Adm Date: 2 Loc: 4 Room: [address] [place] [address] Type: ADM INOo Attending Dr: Lizzeth Malave MD Copies to: DO Jennie Wise ANP-C Ruta Semaskiene, MD~ HPI Consult Date: 08/12/22 Pyrotechnic Mixer: ASTON Bro with Dr Lee Reason for consult: Headache, blurred vision Consult Narrative HPI: Patient is a 31-year-old female with medical history of bipolar, personality disorder, depression, and tobacco use in addition to 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 She has been seen in neurological consultation with request of the hospital service for headache and blurred vision. Patient initially presented to [facility] and was transferred to [facility] for evaluation. She was seen in [facility] on 08/08/2022 with similar symptoms and [...] this is when she called EMS. At [facility] she had a CT scan of [...] extremity from prior surgery CEREBELLAR EXAM: * Hcoxzb-xy-ykve and alternating movements are intact and normal in bilateral upper extremities * Dmwr-tc-hylt and alternating movements are intact and normal [...] puncture based on these results. Evaluation at [facility]: * CT scan head is nonacute. [...] once daily). [facility]. Documented By: EDINSON Dias [id number] Signed By: <Electronically signed by EDINSON Niño> 08/12/22 0923 <Electronically signed by Kenrick Lee DO> 08/12/22 1624 [facility] Work Phone: 1(673) 354-438611-28-2022 History and physical note Author Sangeetha Peña [facility] August 11, 2022 9:43pm Note Date/Time August 11, 2022 9:08pm [facility] [address] [place] [address] Hospitalist H&P Signed Patient: Shazia Chou MR#: [id number] : 1990 Acct:[id number] Age/Sex: 31 / F Adm Date: 2 Loc: 4N Room: [address] [place] [address] Type: ADM IN Attending Dr: Erin Barahona MD Copies to: MD Erin Mcwilliams MD~ HPI DATE OF EXAMINATION: 08/11/22 CHIEF COMPLAINT: Headache with blurry vision HISTORY OF PRESENT ILLNESS: Patient is a pleasant 31-year-old female with history of borderline personality disorder, bipolar disorder and depression. She was accepted by daytime hospitalist when contacted by [facility] physician due to concern for headache [...] pain or dysuria. [facility]08 with similar symptoms. She [...] hypertension and patient has been transferred to [facility] for further management and neurology evaluation. [...] By: <Electronically signed by Sangeetha Peña MD> 08/11/226 [facility] Work Phone: 1(278) 521-930811-25-2022 Evaluation + Plan noteExtracted from: Title:ED Note [...] eGFR Influenza A&B Ag Rapid COVID Antigen ([facility]) UA With Cult Reflex Future Scheduled Tests Laboratory* CBC w/ Auto Diff 07/21/22 Radiology* MA Mamm Screen w/CAD if perf and 3D Tanmay 04/21/22 [facility]11-25-2022 Hospital Discharge instructions Patient Education 08/08/2022 11:39:38 [...] health care provider to lose weight. Take ukis-kwf-qnqvcde and prescription medicines only as told by [...] 11/09/2002 Document Revised: 08/13/2018 Document Reviewed: 07/22/2017 [employer] Patient Education 2020 [employer]. Follow Up Care 08/08/2022 09:04:11 With:Kenrick Lee Address: [address] [place] [address]- [facility] (1) When:08/11/2022 11:38:22 Comments:Follow-up with Dr. [...] any new or worsening symptoms. [facility]11-07-2022 Evaluation + Plan note Future Scheduled Tests Laboratory* CBC w/ Auto Diff 07/21/22 Radiology* MA Mamm Screen w/CAD if perf and 3D Tanmay 04/21/22 [facility] 11-07-2022 Evaluation + Plan note Future Scheduled Tests Laboratory* CBC w/ Auto Diff 07/21/22 [facility]11-07-2022 Hospital Discharge instructions Patient Education 07/21/2022 11:22:36 [...] Follow these instructions at home: Medicines Take mpvm-bcb-ygsddsp and prescription medicines only as told by your health care provider or pharmacist. Ask your pharmacist what clcz-vms-jdvrbwk cold medicines you should avoid. Some medicines [...] a problem, search for a local or [facility] mental health care center. Public [...] 12/31/2017 Document Revised: 12/23/2019 Document Reviewed: 12/31/2017 [employer] Patient Education 2020 [employer] 07/21/2022 11:21:57 Tobacco Use Disorder Tobacco [...] reduces withdrawal symptoms. NRT is available as: ?Vkso-nzx-fugjgxa gums, lozenges, and skin patches. ?Prescription mouth [...] recovery for many people. General instructions Take kihm-bml-tnbjokq and prescription medicines only as told by your health care provider. Check with your health care provider before taking any new prescription or vqnq-pib-ivhuezj medicines. Decide on a friend, family member, or smoking quit-line (such as 4-777-JDCM-NOW in the [place] that you can call [...] 05/06/2005 Document Revised: 08/18/2018 Document Reviewed: 08/18/2018 [employer] Patient Education 2020 [employer]. 07/21/2022 11:21:55 BMI for Adults BMI for [...] height. This can be done either in Sudanese ([place] or metric measurements. Note that charts are available to help you find your BMI quickly and easily without having to do these calculations yourself. To calculate your BMI in Sudanese ([place] measurements, your health care provider will: [...] medical problems. BMI can be measured using Sudanese measurements or metric measurements. To interpret your [...] 05/12/2005 Document Revised: 08/13/2018 Document Reviewed: 07/14/2018 [employer] Patient Education 2020 [employer]. 07/21/2022 11:21:53 Leukocytosis Leukocytosis Leukocytosis means that [...] Follow these instructions at home: Medicines Take ixda-yad-awjzkae and prescription medicines only as told by [...] 08/19/2012 Document Revised: 05/26/2019 Document Reviewed: 05/26/2019 [employer] Patient Education 2020 [employer]. Follow Up Care 07/18/2022 10:46:12 With:Aimee Walker CNP Address: When: only if needed [facility] 11-04-2022 Miscellaneous Notes* Telephone [...] w/CAD if perf and 3D Tanmay 04/21/22 [facility] [place] 08-30-2022 Hospital Discharge instructions Patient Education 05/13/2022 [...] and how much exercise you get. Take gnmg-lvt-yybhsum and prescription medicines only as told by [...] 10/08/2005 Document Revised: 05/05/2019 Document Reviewed: 05/05/2019 [employer] Patient Education 2019 [employer]. [facility] [place] [id number] Evaluation + Plan note Future Scheduled Tests Radiology* MA Mamm Screen w/CAD if perf and 3D Tanmay 04/21/22 [facility]08-08-2022 Hospital Discharge instructions Patient Education 04/21/2022 10:14:53 [...] height. This can be done either in [place]ese ([place] or metric measurements. Note that charts are available to help you find your BMI quickly and easily without having to do these calculations yourself. To calculate your BMI in Sudanese ([place] measurements, your health care provider will: [...] medical problems. BMI can be measured using Sudanese measurements or metric measurements. To interpret your [...] 05/12/2005 Document Revised: 08/13/2018 Document Reviewed: 07/14/2018 [employer] Patient Education 2020 [employer]. 04/21/2022 10:14:51 Lymphadenopathy Lymphadenopathy Lymphadenopathy means that [...] at home: Get plenty of rest. Take qnbz-hxf-gcjylky and prescription medicines only as told by your health care provider. Your health care provider may recommend vpne-mcv-tkwrjxb medicines for pain. If directed, apply heat [...] 06/09/2009 Document Revised: 08/13/2018 Document Reviewed: 07/16/2018 [employer] Patient Education 2020 [employer] 04/21/2022 10:14:49 Tobacco Use Disorder Tobacco Use [...] reduces withdrawal symptoms. NRT is available as: ?Ktur-orq-hnphvpb gums, lozenges, and skin patches. ?Prescription mouth [...] recovery for many people. General instructions Take ibal-foy-tcxubqj and prescription medicines only as told by your health care provider. Check with your health care provider before taking any new prescription or vtue-qor-ppopxud medicines. Decide on a friend, family member, or smoking quit-line (such as 7-129-HJHH-NOW in the [place] that you can call [...] 05/06/2005 Document Revised: 08/18/2018 Document Reviewed: 08/18/2018 [employer] Patient Education 2020 [employer]. Follow Up Care 04/17/2022 09:51:05 With:Aimee Walker CNP Address: When: only if needed [facility] 08-07-2022 Hospital Discharge instructions [...] at home: Get plenty of rest. Take vmbw-ewz-peqofzg and prescription medicines only as told by your health care provider. Your health care provider may recommend qvsi-xgq-wfyfpbt medicines for pain. If directed, apply heat [...] 06/09/2009 Document Revised: 08/13/2018 Document Reviewed: 07/16/2018 [employer] Patient Education 2020 [employer]. Follow Up Care 04/20/2022 14:55:22 With:Aimee Walker Address: [address], [facility] [place] [phone] Business (1) When:04/23/2022 16:08:48 Comments:Follow-up with your primary care provider in 3 to 5 days. If symptoms worsen, do not improve, or new symptoms arise please report back to emergency department for further evaluation. [facility]08-07-2022 Evaluation + Plan noteExtracted from: Title:ED Note Author:Dony Alegre PA-C te:04/20/22 Axillary lymphadenopathy (R5 9.0: Localized enlarged lymph nodes) Orders: naproxen, 500 mg = 1 tab(s), Oral, BID, PRN for pain, # 20 tab(s), Refills(s) 0, Pharmacy: [facility]/pharmacy #[id number], 170, cm, 04/20/22 15:01:00 EDT, Height/Length Dosing, 81.5, kg, 04/20/22 15:01:00 EDT, Weight Dosing Automated Diff Basic Metabolic Panel CBC w/ Auto Diff eGFR XR Chest 2 Views Future Appointments Appointment Date:04/21/2022 09:40:00 AM Scheduled Provider:Aimee Walker CNP Location:[facility] Appointment Type: Open [facility]07-21-2022 Hospital Discharge instructions Patient Education 04/03/2022 19:32:39 [...] 03/15/2012 Document Revised: 08/24/2019 Document Reviewed: 08/24/2019 [employer] Patient Education 2020 [employer]. Follow Up Care 04/03/2022 16:59:04 With:Aaron Aimee BONILLA Address: [phone] When:04/06/2022 [facility]06-17-2022 Miscellaneous Notes* Telephone Encounter - Lina Chavez [...] included. Otolaryngology Consultation/Evaluation Note Head and Neck Almond ASSESSMENT: Burning tongue (primary encounter diagnosis) Irritation [...] Take 40 mg by mouth once daily. efugsrhwhaba-kyy-fnwf-FA-vit K (BARIATRIC MULTIVITAMINS) 45 mg iron- 800 [...] and tender to palpation specifically around b/l Eagle's ducts and frenulum. Ventral aspect of tongue [...] Level: 3 - Low documented [facility] Hospital Discharge instructions Patient Education 02/06/2022 [...] reduces withdrawal symptoms. NRT is available as: ?Tvju-csd-avicyyk gums, lozenges, and skin patches. ?Prescription mouth [...] recovery for many people. General instructions Take yijm-pmz-agplakx and prescription medicines only as told by your health care provider. Check with your health care provider before taking any new prescription or recv-eqs-zwovhvu medicines. Decide on a friend, family member, or smoking quit-line (such as 3-709-YJUM-NOW in the [place] that you can call [...] 05/06/2005 Document Revised: 08/18/2018 Document Reviewed: 08/18/2018 [employer] Patient Education 2020 [employer]. 02/06/2022 09:33:46 BMI for Adults BMI for [...] height. This can be done either in Sudanese ([place] or metric measurements. Note that charts are available to help you find your BMI quickly and easily without having to do these calculations yourself. To calculate your BMI in [place]ese ([place] measurements, your health care provider will: [...] medical problems. BMI can be measured using Sudanese measurements or metric measurements. To interpret your [...] 05/12/2005 Document Revised: 08/13/2018 Document Reviewed: 07/14/2018 [employer] Patient Education 2020 [employer]. Follow Up Care 02/05/2022 13:43:34 With:Aimee Walker CNP Address: When: only if needed [facility] 05-18-2022 Hospital Discharge instructions [...] height. This can be done either in [place]ese ([place] or metric measurements. Note that charts are available to help you find your BMI quickly and easily without having to do these calculations yourself. To calculate your BMI in [place]ese ([place] measurements, your health care provider will: [...] medical problems. BMI can be measured using Sudanese measurements or metric measurements. To interpret your [...] 05/12/2005 Document Revised: 08/13/2018 Document Reviewed: 07/14/2018 [employer] Patient Education 2020 [employer]. 01/29/2022 11:02:54 Complicated Grief Complicated Grief Grief [...] friends and loved ones. General instructions Take pldl-fzt-damgyzy and prescription medicines only as told by [...] 08/31/2006 Document Revised: 08/13/2018 Document Reviewed: 06/16/2018 [employer] Patient Education 2020 [employer]. 01/29/2022 11:02:50 Alcohol Abuse and Dependence Information, [...] for Disease Control and Prevention: www.cdc.gov National Almond on Alcohol Abuse and Alcoholism: www.niaaa.nih.gov Alcoholics [...] 08/25/2017 Document Revised: 12/20/2019 Document Reviewed: 11/08/2019 [employer] Patient Education 2020 [employer]. 01/29/2022 11:02:46 Managing Bipolar Disorder Managing Bipolar [...] Follow these instructions at home: Medicines Take lqur-xjy-gzzqtkx and prescription medicines only as told by your health care provider or pharmacist. Ask your pharmacist what owtx-hdf-dqnzzik cold medicines you should avoid. Some medicines [...] services is a problem, search for a [facility] or [facility] mental [facility] care center. Public [...] Document Reviewed: 12/31/2017 Elsevier Patient Education 2019 [employer] [facility] 05-02-2022 Miscellaneous Notes* Telephone [...] another consult she would. Please advise at [phone] documented in this encounterC[facility]04-15-2022 [...] understood. Rocio Hester Ma documented in this encounterC[facility]05-21-2021 History of Present illness Narrative* Radha Jara - 02/01/2021 9:47 AM EDT CLINICAL PHARMACY NOTE: MEDS TO BEDS Total # of Prescriptions Filled: 2 The following medications were delivered to the patient: Percocet 5-325mg Augmentin 875-125mg Additional Documentation: delivered to patient in room 236 02/01 at 9:44am. Co- pay paid with credit on [employer] ($4.31). * Gamaliel Vickers DO - 01/31/2021 6:29 AM EDT Bariatric Surgery Progress Note PATIENT NAME: Shazia Chuo TODAY'S DATE: 01/31/2021, 6:30 AM Chief Complaint [...] (HCC) 31 yo F s/p 01/07/21 nasim RnY presented 01/30/21 with abdominal pain and several [...] Hydration Advance diet Overall improvement * Melissa Singh, [facility] - 01/30/2021 9:03 PM EDT Images from [...] rate of 12.5ml/hr. Thank You, Melissa Singh [facility] 19:00 PM documented in this encounterC[facility] HospitalKakKstati Phone: 1(659) 567-294605-15-2021 History of Present illness Narrative* Jasmine Burch RN - 01/26/2021 1:51 PM EDT Infusion complete, no complications, IV out and dressing applied. Encouraged patient to call with any questions. Patient left unit with steady gait to private residence. documented in this encounterC[facility] HospitalKakKstati Phone: 1(790) 827-880204-27-2021 History of Present illness Narrative* Radha Jara - 01/08/2021 5:59 PM EDT CLINICAL PHARMACY NOTE: MEDS TO [facility] Patient?: No Total # of Prescriptions Filled: 3 The following medications were delivered to the patient: Percocet 5-325mg Promethazine 25mg Pantoprazole 40mg Total # of Interventions Completed: 0 Time Spent (min): 0 Additional Documentation: delivered to patient in room 247 01/08 at 5:43pm. Co- pay paid with [employer] ($7.02). * Gal Atwood DO - 01/08/2021 [...] Morbid obesity with BMI of 40.0-44.9, adult ([facility]) [E66.01, Z68.41] 05/16/2020 30 y.o. female postop [...] obtained for OR 01-07-21 documented [facility] this [facility] Phone: 1(561) 764-804404-27-2021 Hospital Discharge instructions* Instructions* Gamaliel Vickers DO - 01/08/2021 Discharge Instructions for Surgery You had a Tian-en- Y Gastric Bypass (58221) surgery to treat obesity. Recovery from this [...] scheduled appointment, please call the office at [phone]. Call Your Doctor If Any of the [...] emergency, call 911 immediately. documented in this [facility] Phone: 1(232) 731-358704-12-2021 Hospital Discharge instructions* Instructions* Mahesh Price APRN - POLICY ADVISER - 12/24/2020 Images from the original note [...] drive you home after your procedure. Your hook up driver must be 18 years of age [...] questions, call the Pre-Admission Testing Unit at [phone]. Day of Surgery/Procedure As a patient at [facility] you can expect quality medical and nursing care that is centered on your individual needs. Our goal is to make your surgical experience as comfortableas possible . Directions to the Surgery Center [facility] is located at [address] [place] [address]. Please pull into the Emergency parking lot and stop at the [employer] [place]. We offer free [employer] service for all our surgery patients, if you choose not to have [employer] parking we have additional parking across the street.You will enter the facility following the [facility] sign. Please stop at the cashier receptionist desk where you will be checked in by the staff. If you have any questions please call [phone]. Transportation after your procedure. You will need a friend or family member to drive you home after your procedure. Your hook up driver must be18 years of age or [...] You may shave your face or neck. [place] your teeth but do not swallow water. 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 GERD (gastroesophageal reflux disease) managed by [...] BLEVINS 12/24/20 11:38 AM documented in this [facility] Work Phone: evaluation + Plan note No data available for this section [facility] Evaluation + Plan note Referrals to Other Providers Referred by: Aimee Walker CNP [facility] Evaluation + Plan note Future Appointments Appointment Date:04/04/2022 02:40:00 PM Scheduled Provider:Rahul Salinas DO Location:[facility]ointment Type: [facility] Future Appointments Appointment Date:04/22/2022 09:15:00 AM Scheduled Provider: [facility] Type:MA Diagnostic (FT) Appointment Date:04/22/2022 10:00:00 AM Scheduled Provider: [facility] Appointment Type:US Breast (FT) Future Scheduled Tests Radiology* US Breast Unilateral Lt Complete 04/21/22 * US Breast Unilateral Rt Complete 04/21/22 * MA Mamm Diag w/CAD if perf and 3D Tanmay 04/22/22 * MA Mamm Screen w/CAD if perf and 3D Tanmay 04/21/22 [facility] Evaluation + Plan note Future Appointments Appointment Date:08/22/2022 10:20:00 AM Scheduled Provider:Rahul Salinas DO [facility] Follow Up w/TCM Future Scheduled Tests Laboratory* CBC w/ Auto Diff 07/21/22 Radiology* MA Mamm Screen w/CAD if perf and 3D Tanmay 04/21/22 [facility] Future Appointments Appointment Date:11/03/2022 01:00:00 PM Scheduled Provider:Nakia Shah Location:[facility] Appointment Type: Open Future Scheduled Tests Laboratory* CBC w/ Auto Diff 07/21/22 Radiology* MA Mamm Screen w/CAD if perf and 3D Tanmay 04/21/22 [facility] Future Appointments Appointment Date:01/02/2023 10:00:00 AM Scheduled Provider:Nakia Shah Location:[facility] Appointment Type:FM Open Future Scheduled Tests Laboratory* CBC w/ Auto Diff 07/21/22 Radiology* MA Mamm Screen w/CAD if perf and 3D Tanmay 04/21/22 [facility] Evaluation + Plan note Future Appointments Appointment Date:12/05/2022 09:00:00 AM Scheduled Provider: Location:[facility] Appointment Type:Surgery FT Appointment Date:01/02/2023 10:00:00 AM Scheduled Provider:Nakia Shah Location:[facility] Appointment Type:FM Open Future Scheduled Tests Laboratory* CBC w/ Auto Diff 07/21/22 Radiology* MA Mamm Screen w/CAD if perf and 3D Tanmay 04/21/22 [facility] Future Appointments Appointment Date:12/25/2023 10:15:00 AM Scheduled Provider:Otto Larsen MD [facility]:Cardiology New [facility] (FT) [facility] Future Appointments Appointment Date:11/10/2024 08:00:00 AM Scheduled Provider: [facility] Appoint[facility] Type:US Abdominal/Pelvis (FT) Future Scheduled Tests Radiology* US Abdomen, Limited 11/10/24 [facility] Evaluation + Plan note Future Appointments Appointment Date:11/15/2024 01:45:00 PM Scheduled Provider:Orlando Kate PA-C Location:[facility] Appointment Type:Pain Management - New (FT) [facility] evaluation + Plan note Future Appointments Appointment Date:12/19/2024 10:15:00 AM Scheduled Provider:Orlando Kate PA-C Location:[facility] Appointment Type:Pain Management - Follow Up (FT) [facility] Evaluation + Plan note Future Appointments Appointment Date:01/24/2025 09:30:00 AM Scheduled Provider: Location:[facility] Appointment Type:Surgery FT Appointment Date:01/27/2025 10:15:00 AM Scheduled Provider:Orlando Kate PA-C Location:[facility] [place] Appointment Type:Pain Management - Follow Up (FT) [facility] Evaluation + Plan note Future Appointments Appointment Date:02/13/2025 08:30:00 AM Scheduled Provider: Location:[facility] Appointment Type:Surgery FT Appointment Date:02/15/2025 01:30:00 PM Scheduled Provider:Orlando Kate PA-C Location:[facility] [place] Appointment Type:Pain Management - Follow Up (FT) Appointment Date:02/16/2025 01:00:00 PM Scheduled Provider:Jak Peace MD Location:[facility] Appointment Type:Cardiology New Patient (FT) [facility] evaluation + Plan note Future Appointments Appointment Date:02/17/2025 09:15:00 AM Scheduled Provider: Location:[facility] Appointment Type:Surgery FT Appointment Date:02/20/2025 02:30:00 PM Scheduled Provider:Orlando Kate PA-C Location:[facility] [place] Appointment Type:Pain Management - Follow Up (FT) Appointment Date:03/16/2025 02:30:00 PM Scheduled Provider:Jak Peace MD Location:[facility] Appointment Type:Cardiology Follow Up (FT) Future Scheduled Tests Radiology* NM Myocardial Spect Rest/Stress 1 Day 02/16/25 [facility] evaluation + Plan note Future Appointments Appointment Date:03/13/2025 11:30:00 AM Scheduled Provider: Location:[facility] Appointment Type:NM Myocard Spect Multi Rest/Stress-Res Appointment Date:03/13/2025 12:30:00 PM Scheduled Provider: [facility] Type:NM Myocard Spect [...] Spect Rest/Stress 1 Day 03/13/25 [facility] evaluation + Plan note Future Appointments Appointment Date:03/03/2025 08:30:00 AM Scheduled Provider: Location:[facility] Appointment Type:Surgery FT Appointment Date:03/09/2025 12:30:00 PM Scheduled Provider:Babar Mayers DO Location[facility] Appointment Type:Pain Management - Follow Up [...] Spect Rest/Stress 1 Day 03/13/25 [facility] evaluation + Plan note Future Appointments Appointment Date:03/27/2025 08:45:00 AM Scheduled Provider: Location:[facility] Appointment Type:Surgery FT Appointment Date:04/17/2025 08:00:00 AM Scheduled Provider: Location:[facility] Appointment Type:NM Myocard Spect Multi Rest/Stress-Res Appointment Date:04/17/2025 09:00:00 AM Scheduled Provider: Location:[facility] Appointment Type:NM Myocard Spect Multi Rest/Stress - R Appointment Date:04/17/2025 09:30:00 AM Scheduled Provider: Location:[facility] Appointment Type:NM Myocard Spect Multi Rest/Stress-Str Appointment Date:04/17/2025 10:30:00 AM Scheduled Provider: Location:[facility] Appointment Type:NM Myocar Spect Multi Rest/Stress - St Appointment Date:05/02/2025 08:15:00 AM Scheduled Provider:Orlando Kate PA-C Location:[facility] [place] Appointment Type:Pain Management - Follow Up (FT) Future Scheduled Tests Radiology* NM Myocardial Spect Rest/Stress 1 Day 04/17/25 [facility] Evaluation note* Diagnosis Preop testing- Primary Preoperative examination, unspecified documented in this encounter [employer] Phone: evaluation note* Diagnosis Post-op pain- Primary Other acute postoperative pain Status post gastric bypass for obesity Bariatric surgery status Morbid obesity with BMI of 40.0-44.9, adult (HCC) Hiatal hernia Diaphragmatic hernia without mention of obstruction or gangrene documented in this encounter [employer] Phone: [email or web address] note* Diagnosis Dehydration documented in this encounter [employer] Phone: evaluation note* Diagnosis Generalized abdominal pain- Primary Abdominal pain, generalized documented in this encounter [employer] Phone: evalkinqxo note* Diagnosis Surgery, elective- Primary Unspecified elective surgery for purposes other than remedying health states Omental infarction (HCC) Acute vascular insufficiency of intestine Intra-abdominal abscess (HCC) Peritoneal abscess documented in this encounter [employer] Phone: evaluation note* Diagnosis Omental infarction (HCC) Acute vascular insufficiency of intestine documented in this encounter [employer] Phone: evaluation note* Diagnosis Hypertrophy of breast- Primary Upper back pain Excess skin [facility] Diagnosis Burning tongue- Primary Glossodynia Irritation of oral cavity Other and unspecified diseases of the oral soft tissues [facility]* Diagnosis Onset Date Resolution Status Bipolar 1 disorder acute Blurry vision acute Borderline personality disorder acute Headache acute MDD (major depressive disorder) acute Palpitation acute [facility] Work Phone: Evaluation note* Diagnosis Idiopathic intracranial hypertension- Primary Benign intracranial hypertension Depression, unspecified depression type Primary hypertension Unspecified essential hypertension Hx of gastric bypass Bariatric surgery status H/O foot surgery Personal history of surgery to other organs [facility] noteNo assessment information availableOhio [facility] Work Phone: Evaluation noteNo InformationNort All At Home Other Evaluation note* Diagnosis Panic disorder- Primary Panic disorder without agoraphobia Borderline personality disorder (HCC) Borderline personality disorder Bipolar affective disorder in remission (HCC) Chronic alcoholism in remission (HCC) Other and unspecified alcohol dependence, in remission Routine health maintenance Routine general medical examination at a health care facility [facility] Diagnosis Panic disorder- Primary Panic disorder without agoraphobia [facility]* Diagnosis Routine health maintenance- Primary Routine [...] [facility]* Diagnosis 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 [facility]* Diagnosis Idiopathic intracranial hypertension Benign intracranial hypertension documented [facility]* Diagnosis Chest pain, unspecified type- Primary Palpitations Bipolar affective disorder in remission (HCC) History of substance abuse (HCC) Other, mixed, or unspecified nondependent drug abuse, unspecified Borderline personality disorder (HCC) Borderline personality disorder Serum calcium elevated Hypercalcemia [facility]* Diagnosis Mass of upper outer quadrant of left breast [facility]* Diagnosis Abnormal mammogram- Primary Abnormal mammogram, unspecified Mass of upper outer quadrant of left breast Fibrocystic breast changes of both breasts Mastodynia Inversion of left nipple Bloody discharge from left nipple Other sign and symptom in breast Nipple discharge Other sign and symptom in breast Mass of upper outer quadrant of left breast [facility]* Diagnosis Abnormal mammogram of left breast [facility] Diagnosis Bipolar affective disorder in remission (HCC)- Primary Borderline personality disorder (HCC) Borderline personality disorder Anxiety disorder, unspecified type Chest pain, unspecified type Iron deficiency anemia, unspecified iron deficiency anemia type [facility]* Diagnosis Angina pectoris Other and unspecified angina pectoris Shortness of breath Palpitations Family history of ischemic heart disease Primary hypertension Unspecified essential hypertension Current smoker BMI 29.0-29.9,adult documented in this encounter [facility] Work Phone: Evaluation note* Diagnosis Bipolar affective disorder in remission (HCC) Borderline personality disorder (HCC) Borderline personality disorder Anxiety disorder, unspecified type [facility] Diagnosis Angina pectoris Other and unspecified angina pectoris Shortness of breath Palpitations Family history of ischemic heart disease Primary hypertension Unspecified essential hypertension documented in this encounter [facility] Work Phone: Evaluation note* Diagnosis Ataxia- [...] [facility]* Diagnosis Acute pharyngitis, unspecified etiology- Primary Pharyngitis, unspecified etiology documented in this encounter [facility]* Diagnosis Pseudoangiomatous stromal hyperplasia of breast- Primary Hypertrophy of breast [facility] Diagnosis Pseudoangiomatous stromal hyperplasia of breast- Primary documented in this encounter [facility] general Narrative - Reported* Type Description Date Medical History plantar fasciitis Medical History migraine headache Medical History borderline personality disorder Medical History chronic depression Medical History bipolar Surgical History C section Surgical History c section Surgical History tubal ligation Surgical History HYSTERECTOMY Surgical History oral surgery Surgical History gastric bypass Hospitalization History mental health issues [facility] Other [facility]ismpcl general Narrative - Reported* Type Description Date Medical History plantar fasciitis Medical History migraine headache Medical History borderline personality disorder Medical History chronic depression Medical History bipolar Surgical History C section Surgical History c section Surgical History tubal ligation Surgical History HYSTERECTOMY Surgical History oral surgery Surgical History gastric bypass Hospitalization History mental health issues Hospitalization History [facility] - hysterectomy 11/13 023 [facility] Other Hospital Discharge instructions No data available for this section [facility] Discharge instructions Additional Instructions Follow-up with your PCP and neurology Rest Push fluids Tylenol or Motrin if needed for pain Return here if any problems persist or [facility] Work Phone: Hospital Discharge instructions Additional Instructions DISCHARGE INSTRUCTIONS FOR GENERAL SURGERY YOUR ACTIVITY MAY INCLUDE: No restrictions on activities I recommend wearing a bra for support throughout the day. It is not necessary to sleep with it. WOUND CARE/INCISION CARE: The sutures are underneath the skin and will dissolve by themselves. The incisions are covered with surgical glue, there is no need for additional Band-Aids It is safe to get the wounds wet with soap and water in the shower, no hot tubs or tub baths. - Is it common to feel pulling or sharp sticking sensations in the area of incision, these sensations are a part of the normal healing process. - If you develop fever, increasing pain, redness, or swelling around the incision, please notify our office MEDICATION - Resume all previous medications that you were taking for problems unrelated to your surgery, unless informed otherwise. If there are any problems with this, please call the original prescribing doctor. If you have any other questions regarding medications, please call our office. - Over the counter medications such as Acetaminophen, Ibuprofen, Naproxen, and others may be used as directed for pain unless a prescription was provided.[facility] Work Phone: Progress note No data available for this section [facility] Outpatient Procedure (Routine) - New Request Specialty Diagnoses / Procedures Referred By Contac t Referred To Contact [facility] Diagnoses Chest pain, unspecified type Palpitations Procedures ECG COMPLETE ECG ROUTINE ECG W/LEAST 12 LDS W/I&[place] [address] [place] [address] [facility] [address] [place] [address] Referral ID Status Reason Start Date Expiration Date Visits Requested Visits Authorized [id number] New Request Auto-Generat ed Referral 07/01/2025 1 1 [facility] for referral (narrative)* Diagnostic Procedure Only (Routine) - Closed Specialty Diagnoses / Procedures Referred By Contac t Referred To Contact [facility] Diagnoses Abnormal mammogram of left breast Procedures US BIOPSY BREAST LEFT BX BREAST W/DEVICE 1ST LESION ULTRASOUND GUID Abi Asif MD [address] [address] [facility] [address] [place] [address] Referral ID Status Reason Start Date Expiration Date V isits Requested Visits Authorized [id number] Closed Auto-Generate d Referral 07/05/2024 08/04/2025 1 1 T [facility] for referral (narrative)No reason for referral information availableOhio [facility] Work Phone: Reason for visit Narrative* Diagnostic Procedure Only (Routine) - Closed Specialty Diagnoses / Procedures Referred By Contac t Referred To Contact [facility] Diagnoses Abnormal mammogram of left breast Procedures US BIOPSY BREAST LEFT BX BREAST W/DEVICE 1ST LESION ULTRASOUND GUID Abi Asif MD [address] [address] [facility] [address] [place] [address] Referral ID Status Reason Start Date Expiration Date V isits Requested Visits Authorized [id number] Closed Auto-Generate d Referral 07/05/2024 08/04/2025 1 1 [facility] for visit Narrative* Cardiovascular (Routine) - Authorized Specialty Diagnoses / Procedures Referred By Contac t Referred To Contact Cardiology Diagnoses Angina pectoris Shortness of breath Procedures ECG 12 Lead Aleah Howard MD [address] [address] Phone: tel: fax: Referral ID Status Reason Start Date Expiration Date V isits Requested Visits Authorized [id number] Authorized 08/08/2024 08/08/2025 1 1 [facility] Work Phone: Reason for visit Narrative* CV Imaging (Routine) - Authorized Specialty Diagnoses / Procedures Referred By Contac t Referred To Contact Cardiology Diagnoses Angina pectoris Shortness of breath Palpitations Family history of ischemic heart disease Primary hypertension Procedures Transthoracic Echo Complete AL ECHO TTHRC R-T 2D W/WOM-MODE COMPL SPEC&COLR D Aleah Howard MD [address] [address] Phone: tel: fax: Referral ID Status Reason Start Date Expiration Date Visits Requested Visits Authorized [id number] Authorized Perform Procedure 08/08/2025 1 1 [facility] Work Phone: Assessments Diagnosis Preoperative testing Preoperative examination, unspecified Diagnosis Gastroesophageal reflux disease with esophagitis without hemorrhage Advance Directives No Advanced Directives Records FoundDocuments on File Type Date Recorded 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 ACP-Advance Directive 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 Documents on File Type Date Recorded 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 ACP-Advance Directive 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 Latest Code Status on File Code [...] ankit mother Malignant neoplasm of pancreas Unknown Unknown Diabetes mellitus Unknown Heart disease Unknown History of stroke Unknown Hypertension Unknown Malignant neoplasm Unknown father Amyotrophic lateral sclerosis Unknown Family history of mental disorder Unknown grandparent Malignant neoplasm of pancreas Unknown family member Malignant neoplasm of pancreas Unknown Discharge Instructions * Instructions* Yoli Hardy [...] questions, PLEASE call your doctor or the [facility] at documented in this encounter Reason for Referral Status Reason Specialty Diagnoses / Procedures Referre d By Contact Referred To Contact Closed Radiology Diagnoses Omental infarction (HCC) Procedures CT ABDOMEN PELVIS W IV CONTRAST Additional Contrast? Oral Gamaliel Vickers DO [address] [facility] [address] [place] [address] Specialty Diagnoses / Procedures Referred By Simona bailey Referred To Contact Ophthalmology Diagnoses Idiopathic intracranial hypertension Procedures CONSULT TO OPHTHALMOLOGY OFFICE/OUTPATIENT NEW HIGH MDM 60-74 MINUTES Eileen Alvarez MD [address] [place] [address] Referral ID Status Reason Start Date Expiration Date Visits Requested Visits Authorized [id number] Authorized PCP Requested Referral 11/20/2022 11/20/2023 1 1 Specialty Diagnoses / Procedures Referred By Simona bailey Referred To Contact [facility] IMAGING Diagnoses Idiopathic intracranial hypertension Procedures MRV BRAIN WO/W IVCON MRA; HEAD W & WO CONTRAST Eileen Alvarez MD [address] [place] [address] Mr Imaging Referral ID Status Reason Start Date Expiration Date Visits Requested Visits Authorized [id number] Pending Review Auto-Generat ed Referral 11/20/2022 12/20/2023 1 1 Specialty Diagnoses / Procedures Referred By Rafac t Referred To Contact MR IMAGING Diagnoses Mass of upper outer quadrant of left breast Procedures MRI BREAST BX WO/W IVCON LEFT BX BREAST W/DEVICE 1ST [place] [address] [place] [address] Mr Imaging [facility] Referral ID Status Reason Start Date Expiration Date Visits Requested Visits Authorized [id number] Pending Review Auto-Generat ed Referral 03/08/2024 04/07/2025 1 1 Specialty Diagnoses / Procedures Referred By Simona t Referred To Contact Diagnoses Class 1 obesity due to excess calories without serious comorbidity with body mass index (BMI) of 30.0 to 30.9 in adult Procedures ENDOCRINE MEDICAL WEIGHT MANAGEMENT OFFICE/OUTPATIENT [facility] [address] [place] [address] [place] [address] Referral ID Status Reason Start Date Expiration Date Visits Requested Visits Authorized [id number] Authorized PCP Requested Referral 03/08/2024 03/08/2025 1 1 Specialty Diagnoses / Procedures Referred By Rafac t Referred To Contact MR IMAGING Diagnoses Pancreas cyst Procedures MRI 3D POST PROCESSING 3D RENDERING W/INTERP&POSTPROC DIFF WORK STATION Leonela Aguirre MD [address] [place] [id number] [facility] [place] [address] Referral ID Status Reason Start Date Expiration Date V isits Requested Visits Authorized [id number] Closed Auto-Generate d Referral 08/31/2023 09/29/2024 1 1 Specialty Diagnoses / Procedures Referred By Contac t Referred To Contact MR IMAGING Diagnoses Pancreas cyst Procedures MRI PANC/TANMAY WO/W IVCON MRI ABDOMEN W/O & W/CONTRAST MATERIAL Leonela Aguirre MD [address] [place] [address] Mr Imaging [place] [address] Referral ID Status Reason Start Date Expiration Date V isits Requested Visits Authorized [id number] Closed Auto-Generate d Referral 03/01/2024 03/31/2024 1 1 Specialty Diagnoses / Procedures Referred By Contac t Referred To Contact MR IMAGING Diagnoses Idiopathic intracranial hypertension Procedures MRV BRAIN WO/W IVCON MRA; HEAD W & WO CONTRAST Eileen Alvarez MD [address] [place] [address] Mr Imaging [place] [address] Referral ID Status Reason Start Date Expiration Date V isits Requested Visits Authorized [id number] Closed Auto-Generate d Referral 01/29/2023 02/28/2023 1 1 Specialty Diagnoses / Procedures Referred By Contac t Referred To Contact MR IMAGING Diagnoses Mass of upper outer quadrant of left breast Fibrocystic breast changes of both breasts Mastodynia Inversion of left nipple Bloody discharge from left nipple Nipple discharge Procedures MRI BREAST WO/W IVCON BILATERAL MRI BREAST WITHOUT&WITH CONTRAST W/CAD BILATERAL Fatuma Tyler APRN.POLICY ADVISER [address] [facility] [place] [id number] [facility] [place] [address] Referral ID Status Reason Start Date Expiration Date Visits Requested Visits Authorized [id number] Pending Review Auto-Generat ed Referral 08/03/2025 1 1 Specialty Diagnoses / Procedures Referred By Simona t Referred To Contact BR IMAGING Diagnoses Mass of upper outer quadrant of left breast Procedures US BREAST LTD LEFT US BREAST UNI REAL TIME WITH IMAGE LIMITED Fatuma Tyler APRN.POLICY ADVISER [address] [place] [address] [facility] [address] [place] [address] Referral ID Status Reason Start Date Expiration Date V isits Requested Visits Authorized [id number] Closed Auto-Generate d Referral 07/04/2024 09/13/2024 1 1 Specialty Diagnoses / Procedures Referred By Simona t Referred To Contact BR IMAGING Diagnoses Mass of upper outer quadrant of left breast Procedures LINDA DIAG W AV BILATERAL DIGITAL BREAST TOMOSYNTHESIS BILATERAL Fatuma Tyler APRN.POLICY ADVISER [address] [place] [address] [facility] [address] [place] [address] Referral ID Status Reason Start Date Expiration Date V isits Requested Visits Authorized [id number] Closed Auto-Generate d Referral 07/04/2024 09/13/2024 1 [...] N64.89 N62 April 26, 2025 7: 45am Chief Complaint Admit Date N64.89 N62 April 26, 2025 7: 45am May 11, 2025 10 :00am PASH May 16, 2025 8:54am Chief Complaint Admit Date N64.89 N62 April 26, 2025 7: 45am May 11, 2025 10 :00am PASH May 16, 2025 8:54am Left Breast Pseudoangiomatous Stromal Hy drocladia May 30, 2025 7:04am Additional Source Comments INFORMATION SOURCE (unrecogn ized section and content) DATE CREATED AUTHOR 10/06/2020 [employer] DATE CREATED AUTHOR CHRISTI YOUNG 01/06/2021 [facility] DATE CREATED AUTHOR AUTHOR'S ORGANIZ ATION 08/16/2022 [facility] ical Center DATE CREATED AUTHOR AUTHOR'S ORGANIZ ATION 11/15/2022 [facility] DATE CREATED AUTHOR AUTHOR'S ORGANIZ ATION 08/17/2023 [facility] DATE CREATED AUTHOR AUTHOR'S ORGANIZ ATION 09/04/2023 [facility] DATE CREATED AUTHOR AUTHOR'S ORGANIZ ATION 10/26/2023 [facility] DATE CREATED AUTHOR AUTHOR'S ORGANIZ ATION 03/12/2024 [facility] DATE CREATED AUTHOR AUTHOR'S ORGANIZ ATION 09/16/2024 [facility] DATE CREATED AUTHOR AUTHOR'S ORGANIZ ATION 09/25/2024 [facility] [facility] DATE CREATED AUTHOR AUTHOR'S ORGANIZ ATION 09/26/2024 [facility] DATE CREATED AUTHOR AUTHOR'S ORGANIZ ATION 09/30/2024 [facility] DATE CREATED AUTHOR AUTHOR'S ORGANIZ ATION 10/19/2024 [facility] DATE CREATED AUTHOR AUTHOR'S ORGANIZ ATION 12/13/2024 [facility] DATE CREATED AUTHOR AUTHOR'S ORGANIZ ATION 01/29/2025 [facility] DATE CREATED AUTHOR AUTHOR'S ORGANIZ ATION 02/19/2025 [facility] [facility] DATE CREATED AUTHOR AUTHOR'S ORGANIZ ATION 03/05/2025 [facility] [facility] DATE CREATED AUTHOR AUTHOR'S ORGANIZ ATION 03/17/2025 [facility] DATE CREATED AUTHOR AUTHOR'S ORGANIZ ATION 05/06/2025 [facility] DATE CREATED AUTHOR AUTHOR'S ORGANIZ ATION 05/07/2025 [facility] DATE CREATED AUTHOR AUTHOR'S ORGANIZ ATION 06/02/2025 [facility] Reason for Visit (unrecogniz ed section and content) Status Reason Specialty Diagnoses / Procedures Re ferred By Contact Referred To Contact Diagnoses GERD (gastroesophageal reflux disease) GERD/OBESITY Procedures AL ESOPHAGOGASTRODUODENOSCOPY TRANSORAL DIAGNOSTIC EGD ESOPHAGOGASTRODUODENOSCOPY Gamaliel Vickers DO [address] [facility] [address] [place] [phone] [facility] Status Reason Specialty Diagnoses / Procedures Referre d By Contact Referred To Contact Closed Radiology Diagnoses Gastro-esophageal reflux disease with esophagitis, without bleeding Procedures CHG RADIOLOGIC EXAM UPR GI TRC SINGLE CONTRAST STUDY Gamaliel Vickers DO [address] [facility] [address] [place] [phone] [facility] Radiology [address] [place] [phone] Status Reason Specialty Diagnoses / Procedures Referre d By Contact Referred To Contact Diagnoses Morbid obesity (HCC) GERD (gastroesophageal reflux disease) MORBID OBESITY, GERD Procedures AL LAP GASTRIC BYPASS/ITAN-EN-Y XI LAPAROSCOPIC ROBOTIC GASTRIC BYPASS TIAN-EN-Y, LIVER BIOPSY, EGD- GI UNIT SCHEDULED. Gamaliel Vickers DO [address] [facility] [address] [place] [phone] [facility] Reason Comments Abdominal Pain Diffuse cramping and bloating. Onset 2 days ago. Pt reports she is 3.5weeks post Gastric bypass. Last BM this AM Reason Comments Abdominal Pain possible abscess Status Reason Specialty Diagnoses / Procedures Referre d By Contact Referred To Contact Diagnoses Intra-abdominal abscess (HCC) Omental infarction (HCC) Gamaliel Vickers DO [address] [facility] [address] [place] [phone] [facility] Status Reason Specialty Diagnoses / Procedures Referre d By Contact Referred To Contact Closed Radiology Diagnoses Omental infarction (HCC) Procedures CT ABDOMEN PELVIS W IV CONTRAST Additional Contrast? Oral Gamaliel Vickers DO [address] [facility] [address] [place] [phone] Reason Comments Orders Reason Comments Patient Question [...] present [K21.9] Obesity (BMI 30-39.9) [E66.9] Procedures AL EGD TRANSORAL BIOPSY SINGLE/MULTIPLE AL ESOPHAGOGASTRODUODENOSCOPY TRANSORAL DIAGNOSTIC AL EGD BALLOON DILATION ESOPHAGUS <30 MM DIAM EGD BIOPSY Gamaliel Vickers DO [address] [facility] [address] [place] [address] [facility] [address] [place] [address] Referral ID Status Reason Start Date Expiration Date Visits Re quested Visits Authorized [id number] 1 1 Reason Comments Establish Care Panic [...] W/O & W/CONTRAST MATERIAL Leonela Aguirre MD [address] [facility] [place] [place] [address] Mr [facility] [place] [address] Referral ID Status Reason Start Date Expiration Date V isits Requested Visits Authorized [id number] Closed Auto-Generate d Referral 03/01/2024 03/31/2024 1 1 Reason Onset Date Comments ACM EDYTA RN 05/30/2024 ED Utilizatio n review per request of payer Specialty Diagnoses / Procedures Referred By Contac t Referred To Contact MR IMAGING Diagnoses Idiopathic intracranial hypertension Procedures MRV BRAIN WO/W IVCON MRA; HEAD W & WO CONTRAST Eileen Alvarez MD [address] [place] [phone] [facility] [place] [address] Referral ID Status Reason Start Date Expiration Date V isits Requested Visits Authorized [id number] Closed Auto-Generate d Referral 01/29/2023 02/28/2023 1 [...] BILATERAL DIGITAL BREAST TOMOSYNTHESIS BILATERAL Fatuma Tyler APRN.POLICY ADVISER [address] [place] [address] [facility] [address] [place] [address] Referral ID Status Reason Start Date Expiration Date V isits Requested Visits Authorized [id number] Closed Auto-Generate d Referral 07/04/2024 09/13/2024 1 [...] General Surgery Diagnoses Hypertrophy of breast Procedures AL OFFICE/OUTPATIENT NEW HIGH MDM 60 MINUTES Molly Gregorio, CEDRIC-POLICY ADVISER [address] [address] Phone: tel: fax: [facility] [address] [facility] [address] [place] [address] Phone: tel: fax: Referral ID Status Reason Start Date Expiration Date V isits Requested Visits Authorized [id number] Closed Specialty Services Required 04/10/2025 10/07/2025 1 [...] 1 dose 1142 (Given - Provid er: [facility]) iopamidol (ISOVUE-370) 76 % injection 75 mL (COMPLETED) 75 mL, Intravenous, IMG ONCE PRN, Other, Starting on Thu01/30/21 at 1137, For 1 dose 1142 (Given - Provid er: [facility]) Scheduled Medication Order 01/30/2021 01/31/2021 02/01/2021 0.9 % sodium chloride bolus (COMPLETED) 1,000 mL (8.96 mL/kg), Intravenous, at 1,000 mL/hr, Administer over 1 Hours, ONCE, On Thu01/30/21 at 1715, For 1 dose 1708 (New Bag - Provider: Olrando Guevara RN)1901 (Stopped - Provider: Orlando Guevara RN) [...] Carter RN)2032 (New Bag - Provider: Rita Klein, MARCO) 0030 (Stopped - Provider: Rita Klein RN)0559 (New Bag - Provider: Rita Klein RN)0959 (Due: Stopped - Provider: Rita lKein RN)1315 (Due)2115 (Due) sodium chloride flush 0.9 [...] Team Status: Active Member Role Status Dates CEDRIC DomingoC Primary Care Provider Activ e Start: May 11, 2025 Efrem Victor MD Attending Provider Active Start: May 11, 2025 Team Status: Inactive Member Role Status Dates Jennie Durand DO Primary Care Provider Active S tart: May 16, 2025 End: May 16, 2025 Aaliyah Zamudio DO Attending Provider Active Start: May 16, 2025 End: May 16, 2025 Team Status: Active Member Role Status Dates Lindy Keen APRN NP-C Primary Care Provider Activ e Start: April 20, 2025 Efrem Victor MD Attending Provider Active Start: April 20, 2025 Team Status: Active Member Role Status [...] Active Shasta Zaragoza APRN Other Provider Active JANIE MarvinC Other Provider Active Lizzeth Malave MD Attending Provider Active Team Status: Inactive Member Role Status Dates Jennie Durand , DO Primary Care Provider Active Dorita Niño ANP-BC Attending Provider Active Team Status: Inactive Member Role Status Dates Jennie Durand , DO Primary Care Provider Active Jose Maria Nari DO Emergency Provider Active Team Status: Inactive Member Role Status Dates Jennie Durand , DO Primary Care Provider Active Yoli Norris MD Emergency Provider Active [employer] Systems Administrator Relationship Specialty Start Date End Date Jennie Durand, [place] [address] PCP - General Family Medicine 11/19/22 Team [...] December 31, 2023 End: December 31, 2023 [employer] Network Systems Administrator Relationship Specialty [place] [address] [place] [address] PCP - General Family Medicine 01/04/24 Nilo Prado MD [address] [place] [address] Referring Gastroenterology 08/17/23 [employer] Administrator Relationship Specialty [place] [address] [place] [address] PCP - General Family Medicine 01/04/24 Nilo Prado MD [address] [place] [address] Referring Gastroenterology 08/17/23 [employer] Network Systems Administrator Relationship Specialty [place] [address] [place] [address] PCP - General Family Medicine 01/04/24 Nilo Prado MD [address] [place] [address] Referring Gastroenterology 08/17/23 [employer] Network Systems Administrator Relationship Specialty [place] [address] [place] [address] PCP - General Family Medicine 01/04/24 Nilo Prado MD [address] [place] [address] Referring Gastroenterology 08/17/23 [employer] Systems Administrator Relationship Specialty [place] [address] [place] [address] PCP - General Family Medicine 01/04/24 Nilo Prado MD [address] [place] [address] Referring Gastroenterology 08/17/23 [employer] Systems Administrator Relationship Specialty [place] [address] [place] [address] PCP - General Family Medicine 05/30/24 Nilo Prado MD [address] [place] [address] Referring Gastroenterology 08/17/23 [employer] Systems Administrator Relationship Specialty [place] [address] [place] [address] PCP - General Family Medicine 05/30/24 Nilo Prado MD [address] [place] [address] Referring Gastroenterology 08/17/23 [employer] Systems Administrator Relationship Specialty [place] [address] [place] [address] PCP - General Family Medicine 05/30/24 Nilo Prado MD [address] [place] [address] Referring Gastroenterology 08/17/23 [employer] Network Systems Administrator Relationship Specialty [place] [address] [place] [address] PCP - General Family Medicine 05/30/24 Nilo Prado MD [address] [place] [address] Referring Gastroenterology 08/17/23 [employer] Network Systems Administrator Relationship Specialty [place] [address] [place] [address] PCP - General Family Medicine 05/30/24 Nilo Prado MD [address] [place] [address] Referring Gastroenterology 08/17/23 [employer] Network Systems Administrator Relationship Specialty [place] [address] [place] [address] PCP - General Family Medicine 05/30/24 Nilo Prado MD [address] [place] [address] Referring Gastroenterology 08/17/23 [employer] Network Systems Administrator Relationship Specialty Start Date End Date Tevin Carson [address] [place] [address] PCP - General Family Medicine 05/30/24 Nilo Prado MD [address] [place] [address] Referring Gastroenterology 08/17/23 [employer] Network Systems Administrator Relationship Specialty Start Date End Date Tevin CarsonDO [address] [place] [address] PCP - General Family Medicine 05/30/24 Nilo Prado MD [address] [place] [address] Referring Gastroenterology 08/17/23 [employer] Network Systems Administrator Relationship Specialty Start Date End Date Tevin Carson [address] [place] [address] PCP - General Family Medicine 05/30/24 Nilo Prado MD [address] [place] [address] Referring Gastroenterology 08/17/23 [employer] Network Systems Administrator Relationship Specialty [place] [address] [place] [address] PCP - General Family Medicine 05/30/24 Nilo Prado MD [address] [place] [address] Referring Gastroenterology 08/17/23 [employer] Network Systems Administrator Relationship Specialty Start Date End Date Tevin Carson [address] [place] [address] PCP - General Family Medicine 05/30/24 Nilo Prado MD [address] [place] [address] Referring Gastroenterology 08/17/23 Linux Network Systems Administrator Relationship Specialty Start Date End Date Tevin Carson [address] [place] [address] PCP - General Family Medicine 05/30/24 Nilo Prado MD [address] [place] [address] Referring Gastroenterology 08/17/23 [place] [address] [place] [address] Machine Operator Hop Picker Family Medicine 08/22/24 [employer] Network Systems Administrator Relationship Specialty Start Date End [place]DO [address] [place] [address] PCP - General Family Medicine 05/30/24 Nilo Prado MD [address] [place] [address] Referring Gastroenterology 08/17/23 [place] [address] [place] [address] Machine Operator Hop Picker Family Medicine 08/22/24 [employer] Network Systems Administrator Relationship Specialty Start Date End Date EshaKurt [address] [address] 09/21/24 [employer] Network Systems Administrator Relationship Specialty Start Date End Date Esha, Kurt Lehman [address] [address] 09/21/24 Team Status: Active Member Role Status Dates Jennie Durand DO Primary Care Provider Active S tart: July 03, 2024 Julio Peña DO Attending Provider Active Sta rt: July 03, 2024 [employer] Network Systems Administrator Relationship Specialty Start Date End Date EshaKurt Fallon [address] [address] 09/21/24 [employer] Network Systems Administrator Relationship Specialty Start Date End Date EshaKurt [address] [address] 09/21/24 Corby Larsen DO [address] [place] [address] Referring Physician Neurology 09/27/24 Team Status: Inactive Member Role Status Dates NON STAFF Primary Care Provider Active Start: December 16, 2024 End: December 16, 2024 Corby Larsen DO Attending Provider Active Start: December 16, 2024 End: December 16, 2024 [employer] Network Systems Administrator Relationship Specialty [place] [address] [place] [address] PCP - General Family Medicine 05/30/24 Nilo Prado MD [address] [address] Referring Gastroenterology 08/17/23 Lisha Bianchi APRN.POLICY ADVISER [address] [place] [address] Machine Operator Hop Picker Family Medicine 12/16/24 [employer] Network Systems Administrator Relationship Specialty Start Date End Date Kurt Balbuena NP [place] [id number] 09/21/24 Corby Larsen DO [place] [phone] Referring Physician Neurology 09/27/24 [employer] Network Systems Administrator Relationship Specialty Start Date End Date Unallocated, Luiss [place] [address] PCP - General Family Medicine 04/13/25 Kurt Balbuena NP [address] [address] 09/21/24 Corby Larsen DO [address] [address] Referring Physician Neurology 09/27/24 Linux Network Systems Administrator Relationship Specialty Start Date End Date Unallocated, MD [place] [address] PCP - General Family Medicine 04/13/25 Kurt Balbuena NP [address] [address] 09/21/24 Corby Larsen DO [facility] [address] [place] [address] Referring Physician Neurology 09/27/24 Team Status: Inactive Member Role Status Dates Jennie Durand DO Primary Care Provider Active S tart: May 30, 2025 End: May 30, 2025 Aaliyah Zamudio DO Attending Provider Active Start: May 30, 2025 End: May 30, 2025 Goals (unrecognized section and content) Goals may [...] BE BASED ON THE PRIMARY CLINICAL RECORDS. [employer] provides no warranty or guarantee of the accuracy or completeness of information in this document.
--- NOTE | 2025-06-02 07:41 | ED.GENADUL1 ---
HPI HPI - General Adult General Chief complaint: Recheck/Abnormal Lab/Rx Stated complaint: POST OP SWELLING Time Seen by Provider: 06/02/25 07:27 Source: patient Mode of arrival: walk-in History of Present Illness HPI narrative: 34-year-old female presented to the emergency department for postoperative pain and a wound check. 3 days ago she had a left breast mass removed at [facility] and she overslept for her postop appointment yesterday. She has another appointment scheduled in 6 days. She felt some swelling below the wound and she was concerned so she came in here. No drainage and the wound has not opened. No fever Related Data Home Medications ?Medication ?Instructions ?Recorded ?Confirmed duloxetine 60 mg capsule,delayed 60 mg PO BID 06/10/23 06/02/25 release lamotrigine 25 mg tablet 100 mg PO QDAY 04/08/24 06/02/25 gabapentin 100 mg capsule 600 mg PO TID 01/23/25 06/02/25 trazodone 100 mg tablet 200 mg PO .qhs 01/23/25 06/02/25 nifedipine 30 mg tablet,extended 30 mg PO BEDTIME 06/02/25 06/02/25 release Previous Rx's ?Medication ?Instructions ?Recorded ondansetron 4 mg disintegrating 4 mg PO Q4H PRN nausea and 04/12/25 tablet vomiting 3 days #6 tabs acetaminophen 300 mg-codeine 30 mg 1 tab PO Q6H PRN pain 4 days #15 06/02/25 tablet tabs Allergies Allergy/AdvReac Type Severity Reaction Status Date / Time buspirone (From BuSpar) Allergy Intermediate tachycardia Verified 06/02/25 07:14 aripiprazole (From Abilify) Allergy Unknown Verified 06/02/25 07:14 COCONUT Allergy Mild Hives Uncoded 06/02/25 07:14 Opioid HPI Opioid Management Most Recent Opioid Data: Last Pain Scale 4 Today, 07:24 Ur Phencyclidine Scrn, (NEGATIVE) Negative 07/22/24, 13:51 Review of Systems ROS Narrative A ten point review of systems is negative except as noted above. PFSH PFSH Social History Smoking status: Current every day smoker Little interest or pleasure in doing things: not at all Feeling down, depressed, or hopeless: not at all Exam Narrative Exam Narrative: Nurses note and vital signs reviewed and patient is not hypoxic. General: The patient appears well and in no apparent distress. Patient is resting on cart. Skin: Warm, dry, no pallor noted. There is no rash noted. On the left lateral breast is a well-healed surgical incision with no dehiscence or erythema. There is no open area or drainage. Just inferior to it is yellow-colored bruising and mild fullness to palpation. There is no fluctuance. Head: Normocephalic, atraumatic Eye: Normal conjunctiva, no drainage Ears, Nose, Mouth, and Throat: oral mucosa is moist. Nares patent. Cardiovascular: Regular Rate and Rhythm Respiratory: Patient is in no distress, no accessory muscle use Back: non-tender GI: Soft and nontender Musculoskeletal: The patient has no evidence of calf tenderness, no pitting edema, symmetrical pulses noted bilaterally Neurological: A&O, normal speech Psychiatric: Cooperative Constitutional Vital Signs, click to edit/add: Last Vital Signs Temp 98.4 F 06/02/25 07:15 Pulse 78 06/02/25 07:15 Resp 16 06/02/25 07:15 BP 133/90 06/02/25 07:15 Pulse Ox 98 06/02/25 07:15 O2 Del Method Room Air 06/02/25 07:15 Course Vital Signs Vital signs: Vital Signs Temperature 98.4 F 06/02/25 07:15 Pulse Rate 78 06/02/25 07:15 Respiratory Rate 16 06/02/25 07:15 Blood Pressure 133/90 06/02/25 07:15 Pulse Oximetry 98 06/02/25 07:15 Oxygen Delivery Method Room Air 06/02/25 07:15 Temperature 98.4 F 06/02/25 07:15 Pulse Rate 78 06/02/25 07:15 Respiratory Rate 16 06/02/25 07:15 Blood Pressure 133/90 06/02/25 07:15 Pulse Oximetry 98 06/02/25 07:15 Oxygen Delivery Method Room Air 06/02/25 07:15 Medical Decision Making MDM Narrative Medical decision making narrative: The patient has a normal postoperative exam. The fullness that she is feeling is most likely hematoma and some edema. I have no clinical suspicion of an infection. She does not require antibiotics but is prescribed pain medication and she was given 15 Tylenol 3 tablets. She will keep her next postoperative visit appointment. Medical Records Medical records reviewed: Yes I reviewed the patient's medical records Discharge Plan Discharge Chief Complaint: Recheck/Abnormal Lab/Rx Clinical Impression: Post-operative pain Patient Disposition: Home, Self-Care Time of Disposition Decision: 07:36 Condition: Good Mode of Transportation: Private Vehicle Prescriptions / Home Meds: New acetaminophen-codeine 300-30 mg tablet 1 tab PO Q6H PRN (Reason: pain) 4 Days Qty: 15 0RF No Action duloxetine 60 mg capsule,delayed release(DR/EC) 60 mg PO BID lamotrigine 25 mg tablet 100 mg PO QDAY gabapentin 100 mg capsule 600 mg PO TID trazodone 100 mg tablet 200 mg PO .qhs ondansetron 4 mg tablet,disintegrating 4 mg PO Q4H PRN (Reason: nausea and vomiting) 3 Days Qty: 6 0RF nifedipine 30 mg tablet extended release 30 mg PO BEDTIME Print Language: Mosotho Instructions: Pain Management (ED), Pain Management After Surgery (DC) Referrals: KAYLEE AMES [Primary Care Provider, Unknown] - 1 week
== END 2025-06-02 07:55 | disposition home or self-care (01) ==
PROVIDERS: Emergency Provider Emergency Medicine
DX: G89.18 Other acute postprocedural pain (principal); F17.200 Nicotine dependence, unspecified, uncomplicated
CPT/HCPCS: 99283

== ENCOUNTER 2025-06-05 10:52 | Emergency (ER) | payer MEDICARE, MEDICAID, SELFPAY ==
--- OUTSIDE RECORDS SUMMARY | 2024-09-21 08:45 | XMS_ITS ---
[facility] Address [address] [place] [address] Care Team Providers Care Product Safety Specialist Name Role Phone Ilda Lloyd Primary Care Provider [phone] Raghav Walton Unavailable [phone] REASON FOR VISIT RS FROM 08/22 TRANSFER FROM Jacqueline MILLIGAN Encounters Encounter Location Date Provider Diagnosis [address] [address] [place] [address] 2024 Raghav Walton Plan Of Treatment No Information Progress Notes * LEILA HASSAN LDOB:1990 (34 yo F)Acc No.[id number]:09/21/2024 Behavioral Health Patient: LEILA BARBOUR Provider: VANNESA Ornelas :1990 A ge:33 Y S ex:Female Date:09/21/2024 Address:[address] [place], [place] [id number] Pcp:Ilda Lloyd Subjective: * Chief Complaints: * 1 . RS FROM 08/22 TRANSFER FROM Jacqueline MILLIGAN. * Medical History: Objective: * Vitals: Assessment: Plan: * Treatment: * Images: * Electronic signature of VANNESA Smith on 06/05/2025 at 10:59 AM EDT Sign off status: Pending * Provider: VANNESA Ornelas Date: 0 09/21/2024 Generated for Nareshi norberto/James/eTransmitting on: 0 06/05/2025 10:59 AM EDT
[2025-06-05] VITALS (16 sets, daily range): BP systolic 133–142; BP diastolic 82–93; PULSE 65–80; TEMP 36.8; O2SAT 97–98; BMI 30.5
--- OUTSIDE RECORDS SUMMARY | 2025-06-05 10:59 | XMS_ITS | Encounter Summary ---
Author Organization [facility] Address [address] [place] [address] Phone Care Team Providers Care Dental Insurance Biller Name Role Phone Generic Provider, No Assigned Pcp Primary Car e Provider Unavailable Encounter Details Date Type Department Care Team (Late st Contact Info) Description 12/10/2023 Scanned Document [facility] [address] [place] [id number] Scanning, Generic Provider Social History Tobacco Use [...] on filedocumented in this encounter Care Teams Dental Insurance Biller Relationship Specialty Start Date End Date Generic Provider, No Assigned [facility] [place] [place] [address] PCP - General Medical Office Supervisor 11/03/24 documented as of this encounter
--- OUTSIDE RECORDS SUMMARY | 2025-06-05 10:59 | XMS_ITS | Encounter Summary ---
Author Organization [facility] Address [address] [facility] [facility], [address] [place] [address] Care Team Providers Care Upholsterer Inside Name Role Phone Jennie Durand DO Primary Care Provider [phone] Reason for Referral * Imaging (Routine) - Closed Specialty Diagnoses / Procedures Referred By Contac t Referred To Contact Radiology Diagnoses Gastroesophageal reflux disease with esophagitis, unspecified whether hemorrhage Procedures FL UGI W KUB Johnny Vickers DO Phone: tel: fax: Referral ID Status Reason Start Date Expiration Date Visits Re quested Visits Authorized [id number] Closed 10/24/2020 10/24/2021 1 1 Encounter Details Date Type Department Care Team (Latest Contact Info) Description 10/24/2020 Transcribe Orders [facility] [address] [place] [address] Johnny Vickers DO [address] [place] [address] Gastroesophageal reflux disease with esophagitis, unspecified whether [...] documented as of this encounter Care Teams Upholsterer Inside Relationship Specialty Start Date End Date Jennie Durand DO [address] [place] [phone] PCP - General Family Medicine 11/19/22 documented as of this encounter
--- OUTSIDE RECORDS SUMMARY | 2025-06-05 10:59 | XMS_ITS | Encounter Summary ---
Author Organization [facility] Address [address] [place] [address] Care Team Providers Care Sheltered Workshop Executive Director Name Role Phone Yolande Page BRAILLE DUPLICATING MACHINE OPERATOR Unavailable [phone] Pop Larsen DO Unavailable [phone] Unallocated, Noms Provider Primary Care Provi andres Encounter Details Date Type Department Care Team ([facility] Contact Info) Description 05/30/2025 External Result Encounter [facility] External Department Unsolicited Shaji Francis, DO [address] [address] Social History Tobacco Use Types Packs/Day Years [...] Upcoming Encounters Date Type Department Care Team ([facility] Contact Info) Description 06/05/2025 4:00 PM EDT Office Visit [facility] [address] [place] [phone] Shaji Francis DO [address] [address] documented as of this encounter Procedures Procedure Name Priority Date/Time Associated Diagnosis Comments BI MAMMOGRAM DIAGNOSTIC LEFT 05/30/2025 2:08 PM EDT documented in this encounter Results * Left diagnostic mammogram (05/30/2025 2:08 PM EDT) Anatomical Region Laterality Modality Breast Left Mammography 05/30/2025 2:08 PM EDT Narrative 05/30/2025 2:12 PM EDT [facility] [address] [place] [address] Mammography Report Signed Patient: Shazia Chou MR#: [id number] : 1990 Acct:[id number] Age/Sex: 34 / F Adm Date: 05/30/25 Loc: [place] Room: Type: [facility] Attending Dr: Shaji Francis DO Ordering Provider: Shaji Francis DO Date of Service: 05/30/25 Procedure(s): MM surgical specimen LT Accession Number(s): ([id number]) MM/MM surgical specimen LT: POST LUMPECTOMY Copies to: Jennie Landrum DO CLINICAL INFORMATION: [Left] breast lumpectomy. SPECIMEN RADIOGRAPH: A single radiograph of the [left] breast specimen showed a metallic marking clip and radioiodine seed within the specimen. The images were reviewed by the attending physician during the procedure. Impression dictated by: Denny Escalante M.D. 05/30/2025 2:10 PM Dictation Location: [place] [address] Dictated By: Denny Escalante MD 05/30/25 1408 Signed By: <Electronically signed by Denny Escalante MD in OV> 05/30/25 1410 Procedure Note Radiology, Radiologist, - 05/30/2025 [facility] [address] [address] Mammography Report Signed Patient: Shazia Chou LMR#: [id number] : 1990Acct:[id number] Age/Sex: 34 / FAdm Date: 05/30/25 Loc: [place] Room:Type: [facility] Attending Dr: Shaji Francis DO Ordering Provider: Shaji Francis DO Date of Service: 05/30/25 Procedure(s): MM surgical specimen LT Accession Number(s): ([id number]) MM/MM surgical specimen LT: POSTLUMPECTOMY Copies to: Jennie Landrum DO CLINICAL INFORMATION: [Left] breast lumpectomy. SPECIMEN RADIOGRAPH: A single radiograph of the [left] breast specimen showed a metallicmarking clip and radioiodine seed within the specimen. The images were reviewed by the attending physician during the procedure. Impression dictated by: Denny Escalante M.D. 05/30/2025 2:10 PM Dictation Location: [place] [address] Dictated By: Denny Escalante MD 05/30/25 1408 Signed By: <Electronically signed by Denny Escalante MD in OV> 05/30/25 1410 Shaji Francis DO IMG BI PROCEDURES Final R esult documented in this encounter Visit Diagnoses Not on filedocumented in this encounter Care Teams Sheltered Workshop Executive Director Relationship Specialty Start Date End Date Unallocated, Noms MD nIés [address] [place] [address] PCP - General Family Medicine 04/13/25 Yolande Page NP [facility] [address] [place] [address] 09/21/24 Pop Larsen DO [facility] [address] [place] [address] Referring Physician Neurology 09/27/24 documented as of this encounter
--- OUTSIDE RECORDS SUMMARY | 2025-06-05 10:59 | XMS_ITS | Encounter Summary ---
Author Organization [facility] Address [address] [place] [address] Phone Care Team Providers Care Manufacturing Maintenance Technician Name Role Phone Generic Provider, No Assigned Pcp MD Primary Car e Provider Unavailable Encounter Details Date Type Department Care Team (Late st Contact Info) Description 09/15/2024 Scanned Document [facility] [address] [place] [phone] Scanning, Generic Provider Social History Tobacco Use [...] filedocumented in this encounter Care Teams Manufacturing Maintenance Technician Relationship Specialty Start Date End Date Generic Provider, [place] [address] PCP - General Sandwich Artist 11/03/24 documented as of this encounter
--- OUTSIDE RECORDS SUMMARY | 2025-06-05 10:59 | XMS_ITS | Clinical Summary ---
Author Organization [facility] Address [address] [place] [address] Care Team Providers Care Game Developer Name Role Phone Camilo Yolande Lehman ENTEROSTOMAL THERAPY NURSE Unavailable Pop Larsen DO Unavailable [phone] Unallocated, Noms Provider MD Primary Care Provi [...] TO 3 TIMES DAILY NEEDED 11/19/2024 Active Ferrous Sulfate (IRON PO) Take by mouth Active gabapentin (Neurontin) 300 MG capsule Take 1 capsule by mouth in the morning and 1 capsule in the evening and 1 capsule before bedtime. 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 Records page 5. added per OP [...] management of mother, antepartum condition or complication ([facility]) 07/03/2008 Acute pharyngitis 12/01/2002 Streptococcal sore throat 12/01/2002 Abdominal pain 06/13/2002 Acute suppurative otitis med ia without spontaneous rupture of ear drum 06/13/2002 Educational circumstance 06/13/2002 Lumbago 06/13/2002 Sprain of ankle 12/06/2001 Encounters Date Type Department Care Team Description 06/01/2025 Travel 05/30/2025 External Result Encounter [facility] External Department Unsolicited Shaji Francis DO 05/29/2025 External Result Encounter [facility] External Department Unsolicited Shaji Francis DO 05/18/2025 Travel 05/04/2025 9:45 AM EDT Office Visit [facility] [address] [place] [phone] Shaji Francis DO Pseudoangiomatous stromal hyperplasia of breast (Primary Dx) 05/04/2025 Travel 04/13/2025 10:00 AM EDT Consult [facility] [address] [place] [phone] Shaji Francis, Pseudoangiomatous stromal hyperplasia of breast (Primary Dx); Hypertrophy of breast 04/13/2025 Travel 04/11/2025 Travel 04/09/2025 10:45 AM EDT Office Visit [facility] [address] [place] [address] Shazia Elise, LEONOR Acute pharyngitis, unspecified [...] Care Team (Late st Contact Info) Description 06/05/2025 4:00 PM EDT Office Visit [facility] [address] [phone] Shaji Francis DO [address] [address] Health Maintenance Due Date Last Done Comments Medicare Annual Wellness (AWV) 1990 Influenza Vaccine (#1) 2025 07/23/2020, 2019 Procedures Procedure Name Priority Date/Time Associated Diagnosis Comments BI MAMMOGRAM DIAGNOSTIC LEFT 05/30/2025 2:08 PM EDT BI US GUIDED BREAST LOCALIZATION AND BIOPSY LEFT 05/29/2025 11:31 AM EDT BI MAMMOGRAM DIAGNOSTIC TOMOSYNTHESIS LEFT Routine 04/26/2025 10:09 AM EDT Pseudoangiomatous stromal hyperplasia of breast Hypertrophy of breast STREP DNA PROBE Routine 04/09/2025 11:03 AM EDT Pharyngitis, unspecified etiology from Last 3 Months Results * Left diagnostic mammogram (05/30/2025 2:08 PM EDT) Anatomical Region Laterality Modality Breast Left Mammography 05/30/2025 2:08 PM EDT Narrative 05/30/2025 2:12 PM EDT [facility] [address] [place] [address] [address] [place] [address] Mammography Report Signed Patient: Shazia Chou MR#: [id number] : 1990 Acct:[id number] Age/Sex: 34 / F Adm Date: 05/30/25 Loc: [place] Room: Type: [facility] Attending Dr: Shaji Francis DO Ordering Provider: Shaji Francis DO Date of Service: 05/30/25 Procedure(s): MM surgical specimen LT Accession Number(s): ([id number]) MM/MM surgical specimen LT: POST LUMPECTOMY Copies [...] OV> 05/30/25 1410 Procedure Note Radiology, Radiologist, MD - 05/30/2025 [place] [address] Mammography Report Signed Patient: Shazia Chou LMR#: [id number] : 1990Acct:[id number] Age/Sex: 34 / FAdm Date: 05/30/25 Loc: [place] Room:Type: [facility] Attending Dr: Shaji Francis DO Ordering Provider: Shaji Francis DO Date of Service: 05/30/25 Procedure(s): MM surgical specimen LT Accession Number(s): ([id number]) MM/MM surgical specimen LT: POSTLUMPECTOMY Copies to: [...] Denny Escalante MD in OV> 05/30/25 1410 us Shaji Francis DO IMG BI PROCEDURES Final R esult * Left US-guided breast localization and biopsy (05/29/2025 11:31 AM EDT) Anatomical Region Laterality Modality Breast Left Ultrasound 05/29/2025 11:3 1 AM EDT Impressions 05/29/2025 11:41 AM EDT Successful radioactive seed localization. RESULT CODE: NL Impression dictated by: Clinton Hadley M.D. 05/29/2025 11:38 AM Dictation Location: [facility] Tech: Molly Lloyd; Violetta Price Transcribed By: MARKY 05/29/25 1138 Dictated By: Clinton Hadley DO 05/29/25 1131 Signed By: <Electronically signed by Clinton Hadley DO in OV> 05/29/25 1138 Narrative 05/29/2025 11:41 AM EDT [facility] [place] [address] Ultrasound Report Signed Patient: Shazia Chou MR#: [id number] : 1990 Acct:[id number] Age/Sex: 34 / F ADM Date: 05/30/25 Loc: [place] Room: Type: [facility] Attending Dr: Shaji Francis DO Ordering Provider: Shaji Francis DO Date of Service: 05/29/25 US/US breast needle loc LT: LEFT U/S GUIDED RADIOACTIVE SEED LOC ([id number]) MM/MM diagnostic mammo LT w/CAD: POST U/S RADIOACTIVE SEED LOC Copies to: Shaji Francis DO Ultrasound radioactive seed localization 7 cm [...] 0.118 mCi. US/US breast needle loc LT Procedure Note Radiology, Radiologist, - 06/01/2025 [facility] [address] [place], [place] [address] Ultrasound Report Signed Patient: Shazia Chou LMR#: [id number] : 1990Acct:[id number] Age/Sex: 34 / FADM Date: 05/30/25 Loc: [place] Room:Type: [facility] Attending Dr: Shaji Francis DO Ordering Provider: Shaji Francis DO Date of Service: 05/29/25 US/US breast needle loc LT: LEFT U/S GUIDEDRADIOACTIVE SEED LOC ([id number]) MM/MM diagnostic mammo LT w/CAD: POST U/S RADIOACTIVE SEEDLOC Copies to: Shaji Francis DO Ultrasound radioactive seed localization 7 cm needle utilized. Local lidocaine administration and Sterile technique utilized. The needleadvanced to the area of concern. . The needle tip positioned near the area of concern. Radiation seed wasadministered. Needle was removed. There is no complication. The seed is adjacent to the biopsy marking clip. Patient expressed no immediate complications and discharged insatisfactory condition. The dosage of the radiation seed is 0.118 mCi. US/US breast needle loc LT IMPRESSION: Successful radioactive seed localization. RESULT CODE: NL Impression dictated by: Clinton Hadley M.D. 05/29/2025 11:38 AM Dictation Location: [facility] Tech: Molly Price Transcribed By: MARKY 05/29/25 1138 Dictated By: Clinton Hadley DO 05/29/25 1131 Signed By: <Electronically signed by Clinton Hadley DO in OV> 05/29/25 1138 Shaji Francis DO IMG US PROCEDURES Edited Result - Final * Left diagnostic mammogram with tomosynthesis (04/26/2025 [...] Escalante M.D. 04/26/2025 10:15 AM Dictation Location: [facility] Tech: Shazia Mullen; Elena Roderick Transcribed By: [facility] 04/26/25 1015 Dictated By: Denny Escalante MD 04/26/25 1009 Signed By: <Electronically signed by Denny Escalante MD in OV> 04/26/25 1015 Narrative 04/26/2025 10:20 AM EDT [facility] [place] [address] Ultrasound Report Signed Patient: Shazia Chou MR#: [id number] : 1990 Acct:[id number] Age/Sex: 34 / F ADM Date: 04/26/25 Loc: [place] Room: Type: [facility] Attending Dr: Shaji Francis DO Ordering Provider: Shaji Francis DO Date of Service: 04/26/25 MM/MM diagnostic mammo LT w/CAD: follow up for Left breast Upper outer quadrant ([id number]) US/US breast LT limited: follow with mamm [...] limited Procedure Note Radiology, Radiologist, - 04/26/2025 [facility] [address] [place] [address] Ultrasound Report Signed Patient: Shazia Chou LMR#: [id number] : 1990Acct:[id number] Age/Sex: 34 / FADM Date: 04/26/25 Loc: [place] Room:Type: [facility] Attending Dr: Shaji Francis DO Ordering Provider: Shaji Francis DO Date of Service: 04/26/25 MM/MM diagnostic mammo LT w/CAD: follow up forLeft breast Upper outer quadrant ([id number]) US/US breast LT limited: follow with mamm upper outerquadrant Copies to: Shaji Francis DO DIAGNOSTIC LEFT MAMMOGRAM - FULL FIELD DIGITAL WITH TOMOSYNTHESIS/targetedbreast ultrasound CLINICAL DATA: PASH, pain Craniocaudal and mediolateral oblique views of the left breast wereobtained using low-dose digital technique. Comparison is made to prior studies from outside cpcjyfru59/28/2024. This examination was reviewed with the aid [...] Escalante M.D. 04/26/2025 10:15 AM Dictation Location: [facility] Tech: Shazia Mullen; Elena Vaughn Transcribed By: [facility] 04/26/25 1015 Dictated By: Denny Escalante MD 04/26/25 1009 Signed By: <Electronically signed by Denny Escalante MD in OV> 04/26/25 1015 Shaji Francis DO IMG BI PROCEDURES Final R esult * STREP DNA PROBE (04/09/2025 11:03 AM EDT) RESULT neg Negative Throat 04/09/2025 11:0 3 AM EDT Shazia Elise ENTEROSTOMAL THERAPY NURSE POINT OF CARE TEST ENTER/JEREMIAH T ORDERABLES Final Result from Last 3 Months Insurance MEDICAID [place] [facility] MEDICARE ADVANTAGE Care Teams Game Developer Relationship Specialty Start Date End Date Unallocated, Noms Provider, [place] [address] PCP - General Family Medicine 04/13/25 Yolande Page ENTEROSTOMAL THERAPY NURSE [facility] [address] [place] [address] 09/21/24 Pop Larsen DO [facility] [address] [place] [address] Referring Physician Neurology 09/27/24
--- OUTSIDE RECORDS SUMMARY | 2025-06-05 10:59 | XMS_ITS | Encounter Summary ---
Author Organization [facility] Address [address] [place] [address] Care Team Providers Care Credit Card Associate Name Role Phone Yolande Page COMPENSATION CONSULTING MANAGER Unavailable Pop Larsen DO Unavailable [phone] Unallocated, Noms Provider Primary Care Provi andres Encounter Details Date Type Department Care Team ([facility] Contact Info) Description 05/29/2025 External Result Encounter [facility] External Department Unsolicited Shaji Francis, DO [address] [address] Social History Tobacco Use Types Packs/Day Years [...] Upcoming Encounters Date Type Department Care Team ([facility] Contact Info) Description 06/05/2025 4:00 PM EDT Office Visit [facility] [address] [phone] Shaji Francis DO [address] [address] documented as of this encounter Procedures Procedure Name Priority Date/Time Associated Diagnosis Comments BI US GUIDED BREAST LOCALIZATION AND BIOPSY LEFT 05/29/2025 11:31 AM EDT documented in this encounter Results * Left US-guided breast localization and biopsy (05/29/2025 11:31 AM EDT) Anatomical Region Laterality Modality Breast Left Ultrasound 05/29/2025 11:3 1 AM EDT Impressions 05/29/2025 11:41 AM EDT Successful radioactive seed localization. RESULT CODE: NL Impression dictated by: Clinton Hadley M.D. 05/29/2025 11:38 AM Dictation Location: [facility] Tech: Molly Price Transcribed By: PWS 05/29/25 1138 Dictated By: Clinton Hadley DO 05/29/25 1131 Signed By: <Electronically signed by Clinton Hadley DO in OV> 05/29/25 1138 Narrative 05/29/2025 11:41 AM EDT [facility] Main [address] [address] Ultrasound Report Signed Patient: Shazia Chou MR#: [id number] : 1990 Acct:[id number] Age/Sex: 34 / F ADM Date: 05/30/25 Loc: [place] Room: Type: [facility] Attending Dr: Shaji Francis DO Ordering Provider: Shaji Francis DO Date of Service: 05/29/25 US/US breast needle loc LT: LEFT U/S GUIDED RADIOACTIVE SEED LOC ([id number]) MM/MM diagnostic mammo LT w/CAD: POST U/S [...] needle loc LT Procedure Note Radiology, Radiologist, MD - 06/01/2025 [facility] [place] [address] Ultrasound Report Signed Patient: Shazia Chou LMR#: [id number] : 1990Acct:[id number] Age/Sex: 34 / FADM Date: 05/30/25 Loc: [place] Room:Type: [facility] Attending Dr: Shaji Francis DO Ordering Provider: Shaji Francis DO Date of Service: 05/29/25 US/US breast needle loc LT: LEFT U/S GUIDEDRADIOACTIVE SEED LOC ([id number]) MM/MM diagnostic mammo LT w/CAD: POST U/S [...] Hadley M.D. 05/29/2025 11:38 AM Dictation Location: [facility] Tech: Molly Price Transcribed By: MARKY 05/29/25 1138 Dictated By: Clinton Hadley DO 05/29/25 1131 Signed By: <Electronically signed by Clinton Hadley DO in OV> 05/29/25 1138 us Shaji Francis DO IMG US PROCEDURES Edited Result - Final documented in this encounter Visit Diagnoses Not on filedocumented in this encounter Care Teams Credit Card Associate Relationship Specialty Start Date End Date Unallocated, Noms Provider, [address] [place] [address] PCP - General Family Medicine 04/13/25 Yolande Page, COMPENSATION CONSULTING MANAGER [facility] [address] [place] [address] 09/21/24 Pop Larsen DO [place] [phone] [place] [address] Referring Physician Neurology 09/27/24 documented as of this encounter
--- OUTSIDE RECORDS SUMMARY | 2025-06-05 10:59 | XMS_ITS | Encounter Summary ---
Author Organization [facility] Address [address] [place] [address] Phone Care Team Providers Care Sales Representative Meats Name Role Phone Generic Provider, No Assigned Pcp MD Primary Car e Provider Unavailable Encounter Details Date Type Department Care Team (Late st Contact Info) Description 12/31/2023 Scanned Document [facility] [address] [place] [phone] Scanning, Generic Provider Social History Tobacco Use [...] on filedocumented in this encounter Care Teams Sales Representative Meats Relationship Specialty Start Date End Date Generic Provider, No [place] [address] PCP - General Farm Facility Manager 11/03/24 documented as of this encounter
--- OUTSIDE RECORDS SUMMARY | 2025-06-05 10:59 | XMS_ITS | Encounter Summary ---
Author Organization [facility] Address [address] [place] [address] Phone Care Team Providers Care Burn Center Nurse Name Role Phone Generic Provider, No Assigned Pcp Primary Car e Provider Unavailable Encounter Details Date Type Department Care Team (Late st Contact Info) Description 12/12/2024 Scanned Document [facility] [address] [place] [phone] Scanning, Generic Provider Social History Tobacco Use [...] on filedocumented in this encounter Care Teams Burn Center Nurse Relationship Specialty Start Date End Date Generic Provider, No Assigned [place], [place] [address] PCP - General Shoe Stainer 11/03/24 documented as of this encounter
--- OUTSIDE RECORDS SUMMARY | 2025-06-05 10:59 | XMS_ITS | Clinical Summary ---
Author Organization [employer] [facility] Address [id number] [address] [place] [address] Care Team Providers Care Rn Correctional Name Role Phone [facility] Primary Care Pr ovider Allergies Active Allergy [...] kg (206 lb 9.6 oz) 07/16/2021 9:44 A M EDT Height 170.2 cm (5' 7 ) 07/16/2021 9:44 AM EDT Body Mass Index 32.36 07/16/2021 9:44 AM EDT Plan of Treatment Health Maintenance Due Date Last Done Comments Depression Screening 2000 Tobacco Screening 2000 Adult BMI Screening 2006 DTaP,Tdap and Td Vaccines (1 - Tdap) 12/18/2007 Pap Smear 2009 COVID-19 Vaccine ( season) 2025, 04/08/2021 Influenza Vaccine 05/15/2025 07/10/2021, 07/09/2020 Medical Devices Implanted Type Area Agent Broker Device Identifier Shelf Expiration Date Model / Serial / Lot Anch Sut 4.75mm 2 [facility] [id number] - [id number] Implanted:Qty: 1 on 07/27/2020 by Octavio Sims DPM at [place] Right Medial: Ankle [employer] 06/06/2023 [id number] / [id number] / [id number] Nl Im 52mm 5.5mm 4 Hl Hi Rt - [id number] - [id number] Implanted:Qty: 1 on 07/27/2020 by Octavio Sims DPM at [place] Nail Right: Foot [employer] 07/27/2024 K23-E0-563 2 / [id number] / NA Pg Fx 3.5mm 18mm Thrd Phntm - [id number] - [id number] Implanted:Qty: 1 on 07/27/2020 by Octavio Sims DPM at [place] Orthopedic Implant Right: Foot [employer] 07/27/2024 N48-D9-265 8 / [id number] / NA Pg Fx 3.5mm 16mm Thrd Phntm - [id number] - [id number] Implanted:Qty: 1 on 07/27/2020 by Octavio Sims DPM at [place] [facility] Implant Right: Foot [employer] 07/27/2024 W60-J9-533 6 / [id number] / NA Pg Fx 3.5mm 12mm Antirotation - [id number] - [id number] Implanted:Qty: 1 on 07/27/2020 by Octavio Sims DPM at [place] [facility] Implant Right: Foot [employer] 07/27/2024 I24-Z0-045 2 / [id number] / [id number] V92 Cellular Bone Matrix Implanted:Qty: 1 on 07/27/2020 by Octavio Sims DPM at [place] Right Lateral: Ankle [employer] 08/07/2022 C97-R40-51 00 / [id number] / [id number] Titan 3-D Wedge Implanted:Qty: 1 on 07/27/2020 by Octavio Sims DPM at [place] Right Lateral: Ankle [employer] 03/13/2022 [id number] / [id number] / [id number] Insurance MEDICAID [place] [employer] MEDICARE Care Teams Rn Correctional Relationship Specialty Start Date End Date [facility], [address] [address] PCP - General 07/10/21
--- OUTSIDE RECORDS SUMMARY | 2025-06-05 10:59 | XMS_ITS | Encounter Summary ---
Author Organization [facility] Address [address] [place] [address] Care Team Providers Care Plush Brusher Name Role Phone Camilo Yolande Lehman BUSINESS INTELLIGENCE ADMINISTRATOR Unavailable [phone] Pop Larsen DO Unavailable [phone] Unallocated, Noms Provider MD Primary Care Provi andres Encounter Details Date Type Department Care Team (Latest Contact Info) Description 06/01/2025 Travel Social History Tobacco Use Types Packs/Day [...] Care Team ( st Contact Info) Description 06/05/2025 4:00 PM EDT Office Visit [facility] [address] [place] [phone] Shaji Francis DO [address] [place] [phone] documented as of this encounter Visit Diagnoses Not on filedocumented in this encounter Care Teams Plush Brusher Relationship Specialty Start Date End Date Unallocated, Noms Provider, [address] [place] [address] PCP - General Family Medicine 04/13/25 Yolande Page NP [address] [address] 09/21/24 Pop Larsen DO [address] [address] Referring Physician Neurology 09/27/24 documented as of this encounter
--- OUTSIDE RECORDS SUMMARY | 2025-06-05 10:59 | XMS_ITS | Encounter Summary ---
Author Organization [employer] Address [id number] [address] [place] [address] Care Team Providers Care Truck Engine Assembler Name Role Phone [facility] Primary Care Pr ovider Encounter Details Date Type Department Care Team (Late st Contact Info) Description 07/18/2021 Orders Only [facility] [place] [address] Transcribe, Orders Support User Pain [...] documented as of this encounter Care Teams Truck Engine Assembler Relationship Specialty Start Date End Date [facility], [place] [address] PCP - General 07/10/21 documented as of this encounter
--- OUTSIDE RECORDS SUMMARY | 2025-06-05 10:59 | XMS_ITS | Encounter Summary ---
Author Organization [facility] Address [address] [place] [address] Phone Care Team Providers Care Cue Selector Name Role Phone Generic Provider, No Assigned Pcp MD Primary Car e Provider Unavailable Encounter Details Date Type Department Care Team (Late st Contact Info) Description 07/03/2023 Scanned Document [facility] [address] [place] [phone] Scanning, Generic Provider Social History Tobacco Use [...] on filedocumented in this encounter Care Teams Cue Selector Relationship Specialty Start Date End Date Generic Provider, No [place] [address] PCP - General Gas Collection System Operator 11/03/24 documented as of this encounter
--- OUTSIDE RECORDS SUMMARY | 2025-06-05 10:59 | XMS_ITS | Clinical Summary ---
Author Organization [facility] Address [address], [address] [place] [address] Care Team Providers Care Cut Out Press Operator Name Role Phone Jennie Durand DO Primary Care Provider [phone] Allergies Active Allergy Reactions Criticality Noted Date [...] Mon Post-op 04-24-21 89 y Completed at peck- will request 6 Mon Post-op 07-24-21 204 [...] 2018 HPV (without or with Pap) 2018 Annual Wellness Visit (Medicare) 12/01/2024 Flu vaccine (#1) 04/14/2025 07/09/2020 COVID-19 Vaccine (2024- season) 2025 04/29/2021, 04/08/2021 A1C test (Diabetic or Prediabetic) Discontinued 08/12/2023, [...] - 6.0 % 08/12/2023 7:45 AM EST [employer] Estimated Avg Glucose 114 mg/dL 08/12/2023 7:45 AM EST [employer] Comment: The ADA and AACC recommend providing the estimated average glucose result to permit better patient understanding of their HBA1c result. BLOOD SPECIMEN / Unknown 08/12/2023 7:45 AM EST 08/12/2023 7:46 AM EST us Koki Chan GAMBLING FLOOR SUPERVISOR - SOFTWARE PERFORMANCE ENGINEER CHEMISTRY ORDERABLES Final Result [facility] [address] [place] [address], [facility] [phone] [facility] [address] [place] [id number], [facility] [phone] from Last 3 Months or Most Recently Relevant to Health Maintenance Insurance MEDICARE [place]ICAID [place] [facility] MEDICARE on file Advance Directives * Full Code (Latest Code Status on File) Date Activated Date Inactivated Comments 01/31/2021 11:30 PM 02/01/2021 12:23 PM * Full Code Date Activated Date Inactivated Comments 01/07/2021 12:20 PM 01/08/2021 8:31 PM Care Teams Cut Out Press Operator Relationship Specialty Start Date End Date Jennie Durand DO [address] [place] [phone] PCP - General Family Medicine 11/19/22
--- OUTSIDE RECORDS SUMMARY | 2025-06-05 10:59 | XMS_ITS | Encounter Summary ---
Author Organization [facility] Address [address], [address] [place] [address] Care Team Providers Care Pyrotechnician Name Role Phone Jennie Durand DO Primary Care Provider [phone] Reason for Visit * Reason Comments Medication Refill Encounter Details Date Type Department Care Team (Late st Contact Info) Description 09/05/2020 Refill [facility] Part of [address] [place] [address] Koki Chan, SPINE SURGEON - STEAM SHOVEL ENGINEER Medication Refill Social History Tobacco Use Types [...] documented as of this encounter Care Teams Pyrotechnician Relationship Specialty Start Date End Date Jennie Durand DO [address] [place] [address] PCP - General Family Medicine 11/19/22 documented as of this encounter
--- OUTSIDE RECORDS SUMMARY | 2025-06-05 10:59 | XMS_ITS | Encounter Summary ---
Author Organization [facility] Address [id number] [address] [place] [address] Care Team Providers Care Blanket Folder Name Role Phone [facility] Primary Care Pr ovider Reason for Visit * Reason Onset Date Comments GENETICS 02/07/2022 CLERICAL Encounter Details Date Type Department Care Team (Late st Contact Info) Description 02/07/2022 Telephone [facility] Division of [facility] - Medical Oncology [address] [place] [phone] Edith Louise, [facility] [address] [place] [address] GENETICS (CLERICAL) Social History Tobacco [...] IT WAS NEG. [facility] AND CALL BACK TO SCHEDULE. SJ documented in this encounter Plan of Treatment Not on file documented as of this encounter Visit Diagnoses Not on filedocumented in this encounter Additional Health Concerns Assessment Noted Time PHQ-9 Depression Total Score: 0 07/24/20 20 3:08 PM EST documented as of this encounter Care Teams Blanket Folder Relationship Specialty Start Date End Date [facility], [place] [address] PCP - General 07/10/21 documented as of this encounter
--- OUTSIDE RECORDS SUMMARY | 2025-06-05 10:59 | XMS_ITS | Encounter Summary ---
Author Organization [facility] Address [address] [place] [address] Phone Care Team Providers Care Health Center Manager Name Role Phone Generic Provider, No Assigned Pcp MD Primary Car e Provider Unavailable Encounter Details Date Type Department Care Team (Late st Contact Info) Description 02/09/2025 Scanned Document [facility] [address] [place] [phone] Scanning, Generic Provider Social History Tobacco Use [...] filedocumented in this encounter Care Teams Health Center Manager Relationship Specialty Start Date End Date Generic Provider, No Assigned PcpMD NONE [place] [address] PCP - General Investigator Vice 11/03/24 documented as of this encounter
--- OUTSIDE RECORDS SUMMARY | 2025-06-05 10:59 | XMS_ITS | Encounter Summary ---
Author Organization [facility] Address [address] [place] [place] [address] Care Team Providers Care Loan Inspector Name Role Phone Yolande Page COOKER MECHANIC Unavailable Pop Larsen DO Unavailable Unallocated, Noms Provider Primary Care Provi andres Encounter Details Date Type Department Care Team ([facility] Contact Info) Description 09/22/[address] [facility] [address] [place] [phone] Pop Larsen DO [address] [place] [phone] Social History Tobacco Use Types Packs/Day [...] Upcoming Encounters Date Type Department Care Team ([facility] Contact Info) Description 06/05/2025 4:00 PM EDT Office Visit [facility] [address] [facility] [address] [place] [address] Shaji Francis DO [address] [facility] [address] [place] [address] documented as of this encounter Procedures Procedure [...] on filedocumented in this encounter Care Teams Loan Inspector Relationship Specialty Start Date End Date Unallocated, Noms Inés, [address] [place] [address] PCP - General Family Medicine 04/13/25 Yolande Page COOKER MECHANIC [facility] Medicine [facility] [place] [phone] 09/21/24 Pop Larsen DO [facility] Family Medicine [facility] [place] [address] Referring Physician Neurology 09/27/24 documented as of this encounter
--- OUTSIDE RECORDS SUMMARY | 2025-06-05 10:59 | XMS_ITS | Clinical Summary ---
Author Organization [facility] Address [address] [facility] [place] [address] Care Team Providers Care Medical Care Evaluation Specialist Name Role Phone Unavailable Primary Care Provider Unavailabl e Source Comments The following information is NOT included in Care Everywhere downloads:Psychiatric notes, ECG results, Cardiac Rehab notes, Pulmonary Function notes, data from [employer] (includes but not limited toPregnancy data,audiograms, eye exams, pre-surgical evaluation notes, well-child exam data).[facility] Allergies Active Allergy Reactions Criticality Noted [...] Hep B (peds/adol, 3-dose) (CVX=08) 11/12/2000 MMR, Rxeftel-Qnvel-Hsputxv (CVX=03) 11/12/2000 Family History Medical History Relation [...] years) 12/18/2015 COVID-19 Vaccine (2023-2 5 season) 2025 Influenza Vaccine (#1) 2025 Shingles (RZV) Vaccine (1 of 2) 2038 Mammography Discontinued Pneumococcal Vaccine(s) Aged Out No l onger eligible based on patient's age to complete this topic Insurance [address] [id number]
--- OUTSIDE RECORDS SUMMARY | 2025-06-05 10:59 | XMS_ITS | Clinical Summary ---
Author Organization [facility] Address [address] [place] [address] Phone Care Team Providers Care Twister Doffer Name Role Phone Generic Provider, No Assigned Pcp MD Primary Car e Provider Unavailable Allergies Active Allergy Reactions Criticality Noted Date Comments Aripiprazole Other 02/24/2023 Bupropion Other 07/16/2021 Coconut Swelling Low 07/24/2020 Coconut Flavor Anaphylaxis High 05/09/2020 coconut Coconut Oil, Hydrogenated Itching Medium 07/18/2020 Medications DULoxetine (Cymbalta) [address] capsule Take 90 mg by mouth. 02/29/2020 Active multivitamin-mi r-ekpn-NP-vit K (Bariatric Multivitamins) 45 mg iron- 800 [...] management of mother, antepartum condition or complication ([facility]) 07/03/2008 Acute pharyngitis 12/01/2002 Streptococcal sore throat 12/01/2002 Abdominal pain 06/13/2002 Acute suppurative otitis med ia without spontaneous rupture of ear drum 06/13/2002 Lumbago 06/13/2002 Sprain of ankle 12/06/2001 Immunizations Immunization Administration Dates Next Due Hepatitis [...] history exists COVID-19 Vaccine ( - season) 2025 Influenza Vaccine (#1) 2025 07/09/2020 Diabetes Screening [...] Procedure Name Priority Date/Time Associated Diagnosis Comments CONVERTED COMPENSATION VICE PRESIDENT CYTOLOGY Routine 06/10/2013 12:00 AM EDT from Last 3 Months or Most Recently Relevant to Health Maintenance Results * CONVERTED COMPENSATION VICE PRESIDENT CYTOLOGY (06/10/2013 12:00 AM EDT) Pathology Report Date of Procedure: 06/10/2013 Pathologist: Date Reported: 06/15/2013 Date Received: 06/13/2013 Submitting Physician: Conversion FINAL CYTOLOGICAL INTERPRETATION Squamous and/or Glandular Abnormality Satisfactory for evaluation. Transformation zone present. 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 - SCREENED BY: MICAH BHAKTA (ASC) Note: Pap smear testing is a screening procedure and subject to both false negative and false positive results as evidenced by published data. Your patient's test result should be interpreted in this context, together with patient's history and clinical findings. - Signed by: MAEGAN ARIAS 06/15/13 Electronically Signed Out By [facility], Cytology/ By the signature on this [...] Source of Specimen A: Unknown Part Type [facility] Department of Pathology [id number] [place] CONVERTED FINAL DIAGNOSIS Satisfactory for evaluation. Transformation zone present. 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 - SCREENED BY: MICAH BHAKTA (ASC) Note: Pap smear testing is a screening procedure and subject to both false negative and false positive results as evidenced by published data. Your patient's test result should be interpreted in this context, together with patient's history and clinical findings. - Signed by: MAEGAN ARIAS 06/15/13 [facility] [address] [place] CONVERTED CLINICAL DIAGNOSIS-HIST ORY - PREVIOUS CASES [id number] - HISTORY & COMMENTS Previous Abnormal PAP and/or Biopsy LSIL [facility] CONVERTED SLIDE-BLOCK DESCRIPTION - TISSUES - 1. CERVICAL/VAGINAL THIN PREP - [facility] CONVERTED REPORT COMMENTS [facility] [address] Case # [id number] DOS: 06/10/13 - ORD PHYSICIAN: Clinton Hernandez MD - ORD PROCEDURES - CYTO PAP TLP MAN SCR / CYTO PAP INTERP / - COPIES TO: Clinton Hernandez MD - Status History - ENT 06/13/13 0948 [facility] DIAG 06/15/13 1321 MAEGAN ARIAS SOUT 06/15/13 1325 MAEGAN ARIAS - [facility] [address] Conversion Report - [facility] CONVERTED FINAL REPORT PDF LINK TO COPY AND PASTE \copathshare\copa th\PDF [id number].pdf [facility] Unrecognized Part Type 06/10/2013 06/13/2013 9:48 AM EDT [facility] Conversion LAB CYTOLOGY ORDERABLES Final Result [facility] [address] [phone] from Last 3 Months or Most Recently Relevant to Health Maintenance Insurance MEDICAID Member Subscriber Plan / Payer (Ef fective 2023-Present) Name:Shazia Chou Relation to Subscriber:Self Name:Shazia Chou Payer ID:Not on file Group ID:Not on file Type:Not on file Address: [address] MEDICAID Member Subscriber Plan / Payer (Ef fective 2023-Present) Name:Shazia Chou Relation to Subscriber:Self Name:Shazia Chou Payer ID:Not on file Group ID:Not on file Type:Not on file Address: [address] Care Teams Twister Doffer Relationship Specialty Start Date End Date Generic Provider, No Assigned Pcp, NONE [facility] [address] PCP - General Intermediate Card Tender 11/03/24
--- OUTSIDE RECORDS SUMMARY | 2025-06-05 11:07 | XMS_ITS | CCD ---
Author Organization [facility] Care Team Providers Care Senior Sas Programmer Name Role Phone Jennie Durand Primary Care Provider LINDY COTE Attending Unavailable PROVIDER, UNKNOWN Admitting Unavailable PATIENT, SELF Referring Unavailable Jennie Durand Primary Care Provider [phone] Jennie Durand DO Primary Care Provider JENNIE DURAND Primary Care Unavailable Jennie Durand DO Primary Care Provider Unavailable Primary Care Provider UnavailAimee Renee Primary Care Physician Unavailable Primary Care Provider UnavailDO Jennie Pichardo Primary Care Provider [phone] MD Sangeetha Peña Admit Provider Lindy Hdz [...] Physician DO Jennie Durand Primary Care Provider DO Jose Maria Nair Emergency Provider Ania Javed Unavailable Asaad, Imad Unavailable Durand, DO Jennie D Primary Care Provider TuDO Jose Maria henry Emergency Provider MD Yoli Norris Emergency Provider GANESH CORDERO Referring Unavailable DURAND, JENNIE D Primary Care Unavailable JOSUEMARII Referring Unavailable DURAND, JENNIE D Primary Care Unavailable MAN BRIANNAUMEI Attending Unavailable BRIANNA ALVAREZUMEMarina Attending Unavailable NAFSATHISH SAMER A Referring Unavailable Durand DO, Jennie D Primary Care Provider GAMALIEL VICKERS Referring Unavailable DURAND, JENNIE D Primary Care Unavailable JOSUEMARII Referring Unavailable DURAND, JENNIE D Primary Care Unavailable JOSUEMARII Referring Unavailable DURAND, JENNIE D Primary Care Unavailable Durand, DO Jennie D Primary Care Provider MD Marii Christiansen Emergency Provider [phone] DO Jose Maria henry Emergency Provider [phone] CEDRIC Javed Emergency Provider Eve BHAKTA, Imad Unavailable Elia Baires DO Primary Care Provider [phone] Alexis Shukla Attending Unavailable Bakari Chester Attending [...] e Corby Larsen DO Attending Provider [phone] ALEAH HOWARD Attending Unavailable Jose Roberto Card FIELD SUPPORT TECHNICIAN.PYRIDINE RECOVERY OPERATOR, [facility] Unavailable MARII RICK Admitting Unavailable MARII [...] Fernandez Daniels Consulting Unavailable OthmanFernandez Consulting Unavailable [place]uncie, Jak W Referring Unavailable [place]uncie, Jak W Attending Unavailable [place], Jak W Admitting Unavailable Babar Mayers Attending Unavailable Babar Mayers Referring Unavailable Jennie Durand Attending Unavailable Jennie Durand Admitting Unavailable Rhiew, David B Referring Unavailable Rhiew, David B Attending Unavailable Rhiew, David B Admitting Unavailable Rhiew, David B Attending Unavailable Rhiew, David B Admitting Unavailable AustinBryan Attending Unavailable Hajdliang, Astrramya H Attending Unavailable ESHA, KURT A Attending Unavailable ESHA, KURT A Attending Unavailable ESHA, KURT A Attending Unavailable Kate, Orlando Attending Unavailable Kate, Orlando Admitting Unavailable Rhiew, David B Referring Unavailable Kate, Orlando Attending Unavailable Kate, Orlando Admitting Unavailable Jennie Durnad Referring Unavailable Kate, Orlando Referring Unavailable Kate, Orlando Attending Unavailable Kate, Orlando Admitting Unavailable Jennie Durand Referring Unavailable DurandJennie badillo Attending Unavailable MOLLY GREGORIO Referring Unavailable [place], Jak W Attending Unavailable Esha BIOMEDICAL FIELD SERVICE ENGINEER, Kurt Lehman Unavailable Corby Larsen DO Unavailable Unallocatradha BHAKTA, Noms Provider [facility] Lindy Keen APRN Primary Care Provider Efrem Victor MD Attending Provider Aaliyah Zamudio DO Attending Provider Jennie Durand DO Primary Care Provider SHAZIA ELISE Attending Unavailable AALIYAH ZAMUDIO Attending Unavailable MOLLY GREGORIO Referring Unavailable AALIYAH ZAMUDIO Attending Unavailable CORBY LARSEN Attending Unavailable CORBY LARSEN Attending Unavailable Sami Brewster Attending Unavailable BERNARDMOLLY BUCHANAN Referring Unavailable [place], Jak W Admitting Unavailable [place], Jak W Attending Unavailable [place], Jak W Referring Unavailable MARII RICK Admitting Unavailable MARII RICK Attending Unavailable Jennie Durand Referring Unavailable Babar Mayers Admitting Unavailable Babar Mayers Attending Unavailable Jak Peace W Attending Unavailable NONE, XXXX Referring Unavailable Babar Mayers Referring Unavailable Babar Mayers Attending Unavailable Lindy Keen APRN Primary Care Provider Efrem Victor MD Attending Provider [phone] Sailaja Anderson Admitting Unavailable Sailaja Anderson Attending Unavailable NON STAFF Primary Care Unavailable Jacob Baker Admitting Unavailable Olivia, Jacob Attending Unavailable NON STAFF Primary Care Unavailable Corby Larsen Admitting Unavailab le Corby Larsen Attending Unavailab le NON STAFF Primary Care Unavailable Itzkowitz, Aaliyah Admitting Unavailable Itzkojosetz, Aaliyah Attending Unavailable Jennie Durand Primary Care Unavailable Itzkowitz, Aaliyah Admitting Unavailable Itzkoraúl, Aaliyah Attending Unavailable Jennie Durand Primary Care Unavailable Itzkowitz, Aaliyah Admitting Unavailable Itzsherietz, Aaliyah Attending Unavailable Jennie Durand Primary Care Unavailable Lindy Keen Primary Care Unavailable Valente Efrem Admitting Unavailab Efrem Staton Attending Unavailab le Itzkoraúl, Aaliyah Attending Unavailable Itzbrooke, Aaliyah Admitting Unavailable Jennie Durand Primary Care Unavailable Allergies Allergy Classification Reported Allergen(s) Allergy Type Date of Onset Reaction(s) Facility coconut allergenic extract (7 sources) coconut allergenic extract Drug Allergy 07-18-20 [facility] (20 sources) coconut allergenic extract; Translations: [Coconut Oil] Drug Allergy 07[place]18-[place] (19 sources) Coconut Flavor; Translations: [COCONUT FLAVOR] Propensity to adverse reactions to drug 05-09-20 Anaphylaxis [place] (1 source) SOAP; Translations: [SOAP] Propensity to adverse reactions to drug (disorder) 11-13-19 [facility] (1 source) Pencils; Translations: [Unknown] Propensity to adverse reactions (disorder) 11-13-19 01 [facility] (20 sources) Coconut extract; Translations: [coconut] Drug Allergy 07-18-20 20 [facility] (20 sources) ARIPiprazole lauroxil; Translations: [aripiprazole] Drug Allergy suicidal [facility] (20 sources) ARIPiprazole; Translations: [aripiprazole] Drug Allergy 08-19-20 22 Mental Status Change, Other: See Comments, Unknown, Other [facility] Comment on above: Pt states it makes h er suicidal. (1 source) ARIPiprazole Drug Allergy 10-30-19 23 The [facility] (20 sources) busPIRone; Translations: [Buspirone] Drug Allergy Unknown, palpitations [facility] (20 sources) buPROPion; Translations: [BUPROPION] Drug Allergy 07-16-20 21 Unknown, Other [facility] (20 sources) busPIRone; Translations: [buspirone] Drug Allergy 12-10-19 24 Palpitations [facility] Comment on above: rapid heart rate (4 sources) Coconut Oil, Hydrogenated; Translations: [COCONUT OIL, HYDROGENATED] Propensity to adverse reactions 07-18-20 20 Itching [facility] Work Phone: (10 sources) Coconut extract [...] q4hr for headache, 12 cap(s), Refill(s) 0, [facility]pharmacy #[id number], 170, cm, 08/22/22 10:41:00 EST, Height/Length Dosing, 85, kg, 08/22/22 10:41:00 EST, Weight Dosing Start Date: 08/22/22 Status: Ordered Start: 08-08-2022 take 1 capsule by mo [facility] every four hours for headache APAP/butalbital/caffeine 300 mg-50 mg-40 mg oral capsule 1 cap(s), Oral, q4hr for headache, 12 cap(s), Refill(s) 0, [facility]pharmacy #[id number], 162, cm, 08/08/22 9:11:00 EST, Height/Length Dosing, 83.1, kg, 08/08/22 9:11:00 EST, Weight Dosing Start Date: 08/08/22 Status: Ordered acetaminophen 325 mg / oxyCODONE hydrochloride 5 mg oral tablet (7 sources) Opioid Agonist Start: 12-05-2022 End: 12-07-2022 acetaminophen-oxycodone 325 mg-5 mg Tab 1 tab(s), Oral, q6hr for pain for 2 day(s), 7 tab(s), Refill(s) 0, [id number], 170, cm, 11/21/22 10:37:00 EST, Height/Length Dosing, [...] 02/06/2021 Start: 01-30-2021 take 1 tablet by [facility] every four hours as needed for [...] COCET) 5-325 MG per tablet 1 tablet [id number] 200 actuat albuterol 0.09 mg/actuat metered dose [...] day(s), # 90 tab(s), Refills(s) 0, Pharmacy: [facility]/pharmacy #[id number], 170, cm, 03/03/25 7:35:00 EDT, Height/Length Dosing, 90.4, kg, 02/17/25 18:58:00 EDT, Weight Dosing Start Date: 03/03/25 Stop Date: 04/02/25 Status: Ordered Quantity: 90.0 Unit: tab(s) Repeat number: 1 brompheniramine maleate 0.4 mg/ml / dextromethorphan hydrobromide 2 mg/ml / pseudoephedrine hydrochloride 6 mg/ml oral solution (3 sources) alpha-Adrenergic Agonist, Uncompetitive V-pxypxt-Y-aspartat e Receptor Antagonist, Sigma-1 Agonist Start: 02-17-2025 take 10 mL by mouth four times daily Bromfed DM oral syrup 10 mL, Oral, QID for cold symptoms, 200 mL, Refill(s) 0, [facility]/pharmacy #[id number], 170, cm, 02/17/25 [...] # 42 tab(s), Refills(s) 0, Pharmacy: [facility]/pharmacy #[id number], 170, cm, 08/22/22 [...] TID, # 90 tab(s), Refills(s) 2, Pharmacy: [facility]/pharmacy #[id number], 170, cm, 01/13/25 [...] TID, # 90 cap(s), Refills(s) 0, Pharmacy: [facility]/pharmacy #[id number], 170, cm, 10/14/24 [...] Start: 02-13-2025 take 2 tablets by mo ut twice daily lamoTRIgine (LAMICTAL) 25 mg tablet [...] Start: 09-15-2024 take 3 tablets by mo ut once daily lamotrigine 25 mg Tab TAKE [...] day(s), # 18 tab(s), Refills(s) 0, Pharmacy: [facility]/pharmacy #[id number], 170, cm, 10/18/24 [...] TAB PO Daily August 11, 2022 12:00am knbmhysfebak-pse-corf-FA-vit K (BARIATRIC MULTIVITAMINS) 45 mg iron- 800 mcg-120 mcg cap (20 sources) multivitamin-min -iron-FA-vit K (BARIATRIC MULTIVITAMINS) 45 mg iron- 800 mcg-120 mcg cap Take by mouth. Active multivitamin-min -iron-FA-vit K (BARIATRIC MULTIVITAMINS) 45 mg iron- 800 mcg- 120 mcg cap Take by mouth. 0 Active Comment on above: Take by mouth. zznapgtiuqgr-btb-ec on-FA-vit K (Bariatric Multivitamins) 45 mg iron- [...] # 20 tab(s), Refills(s) 0, Pharmacy: [facility]/pharmacy #[id number], 170, cm, 03/08/24 13:22:00 EDT, Height/Length Dosing, 89.4, kg, 03/08/24 13:22:00 EDT, Weight Dosing Start Date: 03/08/24 Stop Date: 03/18/24 Status: Ordered Start: 04-20-2022 take 1 tablet by juan manuel th twice daily as needed for pain naproxen 500 mg Tab 500 mg = 1 tab(s), Oral, BID, PRN for pain, # 20 tab(s), Refills(s) 0, Pharmacy: [facility]/pharmacy #[id number], 170, cm, 04/20/22 15:01:00 EDT, Height/Length Dosing, 81.5, kg, 04/20/22 15:01:00 EDT, Weight Dosing Start Date: 04/20/22 Status: Ordered 24 hr nicotine 0.583 mg/hr transdermal system (1 source) Cholinergic Nicotinic Agonist Start: 11-03-2022 End: 01-02-2023 nicotine 14 mg/24 hr Transderm ER Film 1 patch(es), Topical, Daily for 30 day(s), 30 patch(es), Refill(s) 1, [facility]/pharmacy #[id number], 170, cm, 11/03/22 [...] FOOD Start Date: 01/29/22 Status: Ordered nystatin 092080 unt/ml oral suspension (1 source) Polyene Antifungal [...] 08-14-2022 take 1 tablet by juan manuel twice daily Zofran 8 mg Tab 8 mg = 1 tab(s), Oral, BID, # 6 tab(s), Refills(s) 1, Pharmacy: [facility]/pharmacy #[id number], 162, cm, 08/08/22 [...] 21 tab(s), Refills(s) 0, Pharmacy: [facility]/pharmacy #[id number], 170, cm, 10/18/24 8:12:00 EST, Height/Length Dosing, 90, kg, 10/18/24 8:12:00 EST, Weight Dosing Start Date: 10/18/24 Stop Date: 10/25/24 Status: Ordered Start: 07-08-2023 take 1 tablet by juan manuel every twelve hours predniSONE 20 MG 1 tablet Orally bid for 5 day(s) Jun, Not-Taking/PRN pregabalin 150 mg oral capsule (5 sources) Start: 11-21-2024 End: 12-21-2024 take 1 capsule by mouth twice daily pregabalin 150 mg Cap 150 mg = 1 cap(s), Oral, BID, X 30 day(s), # 60 cap(s), Refills(s) 0, Pharmacy: [facility]/pharmacy #[id number], 170, cm, 11/15/24 [...] 60 cap(s), Refills(s) 1, Pharmacy: [facility]/pharmacy #[id number], 170, cm, 11/15/24 [...] # 7 tab(s), Refills(s) 0, Pharmacy: [facility]/pharmacy #[id number], 170, cm, 01/31/22 [...] # 12 tab(s), Refills(s) 0, Pharmacy: [facility]/pharmacy #[id number], 162, cm, 08/08/22 9:11:00 EST, Height/Length Dosing, 83.1, kg, 08/08/22 9:11:00 EST, Weight Dosing Start Date: 08/08/22 Status: Ordered Completed/Discontinued Medications Medication Drug Class(es) Dates Sig (Normalized) Sig (Original) acetaminophen 325 mg / HYDROcodone bitartrate 5 mg oral tablet (2 sources) Opioid Agonist End: 08-08-2024 take 1 tablet by mouth every six hours as needed HYDROcodone-acetami nophen ([place]) 5-325 mg tablet Take 1 tablet by [...] on above: Take 1 capsule by mo [facility] twice daily. Start from 500mg daily, increase [...] Start: 11-22-2020 [facility] as needed for anxiety [...] [place]ila Start: 12-03-2018 take 1 capsule by [facility] every twelve hours Doxycycline Hyclate 100 MG [...] 60 mg , Oral, BID, per dr chaparro Depression Start Date: 02/02/19 Status: Ordered Start: 02-02-2019 Cymbalta 90 mg , Oral, Daily, 30mg in AM 60mg at night, Depression Start Date: 02/02/19 Status: Ordered Start: 01-08-2019 take 1 capsule by [facility] twice daily Duloxetine (Cymbalta) 60 mg Capsule,Delayed Release(Dr/Ec) Active 60 MG PO Twice daily January 08, 2019 12:00am Complies with drug therapy Start: 01-08-2019 End: 03-08-2024 take 1 capsule by mouth once daily at bedtime Duloxetine (Cymbalta) 60 mg Capsule,Delayed Release(Dr/Ec) Active 60 MG PO Daily at bedtime January 08, 2019 12:00am take 1 capsule by [facility] every eight hours Cymbalta 30 MG 1 capsule Orally three times a day Active Cymbalta Active Comment on above: Take 60 mg by mouth once daily. ergocalciferol 1.25 mg oral capsule (13 sources) Provitamin D2 Compound Start: 07-19-2020 End: 08-19-2022 Ergocalciferol (Vitamin D2) 1,250 mcg (50,000 unit) capsule Discontinued 98880 UNIT PO every week July 19, 2020 1:00am August 19, 2022 8:39am Start: 07-19-2020 End: 08-19-2022 take 95602 [IU] by mouth every week Ergocalciferol (Vitamin D2) Discontinued 69005 UNIT PO every week July 19, 2020 [...] Three times daily as needed for anxiety 02 13December 31, 2023 12:00am May 16, 2025 9:25am [...] mg hydrocortisone + Doxycycline 1,000 mg (tabs/cap)., [facility]/pharmacy #[id number], Compound, 170, cm, [...] 4 Episodic Other aftercare (1 source) Other lath hand (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; Translations: [OTH LONGTERM CURRENT DRUG THERAPY] Onset: 3 Episodic Other [...] Episodic Comment on above: noted in 09/16/2024 [facility] Records page 5. added per [...] Results Test Name Value Interpretation Reference Range [facility] 05-30-2025 --- Specimen: [id number] Received: 05/30/25 Status: FABBY Zaldivarsteven Num: [id number] Spec Type: Surgical Subm Dr: Aaliyah Zamudio DO Tissues: A Breast Lumpectmy/Mass - Requiring Micros Eval of Margins (L BREAST TISSUE AN Procedures: Aditya CRUZ/Neto L5 Age/ Patient Sex Location Account Attending Physician Shazia Chou 34/F [place] [id number] Aaliyah Zamudio DO SPEC NUM: [id number] RECD: 05/30/25 STATUS: FABBY LUCI NUM: [id number] JUAN: 05/30/[address]: Aaliyah Zamudio DO ENTERED: 05/30/[address]: SPEC TYPE: Surgical DEPT: S ENTERED BY: [id number] RECV BY: [id number] ORDERED: HE/18, Gross/Micro L5 ORDERED: , Gross/Micro L5 Pathological Diagnosis Left breast, radioactive-seed [...] with ink as follows: Superior-Red Inferior-Blue Medial-Yellow Lateral-[place] Anterior-Green Posterior-Black The lumpectomy is 4 cm [...] that is transferred to nuclear medicine. Specimen: [id number] Received: 05/30/25 Status: FABBY Holt Num: [id number] Spec Type: Surgical Subm Dr: Aaliyah Zamudio, DO Tissues: A Breast Lumpectmy/Mass - Requiring Micros Eval of Margins (L BREAST TISSUE AN Procedures: , Gross/Micro L5 Patient: Linda Choudion Bach [id number] (Continued) Specimen: [id number] Received: 05/30/25 (Continued) Gross Description (Continued) Signed (signature on file) Terry Quintanilla MD 05/31/25 1332 Specimen: [id number] Received: 05/30/25 Status: FABBY Holt Num: [id number] Spec Type: Surgical Subm Dr: Aaliyah Zamudio DO Tissues: A Breast Lumpectmy/Mass - Requiring Micros Eval of Margins (L BREAST TISSUE AN Procedures: SULEIMAN/Sivan, Gross/Micro L5 Patient: Shazia Chou [id number] (Continued) Specimen: [id number] Received: 05/30/25-955 (Continued) Gross Description (Continued) The [...] A (more content not included)... Normal [facility] MM surgical specimen [facility] MM surgical specimen [facility] [address] [place] [address] Mammography Report Signed Patient: Shazia Chou MR#: [id number] : 1990 Acct:[id number] Age/Sex: 34 / F Adm Date: 05/30/25 Loc: [place] Room: Type: [facility] Attending Dr: Aaliyah Zamudio DO Ordering Provider: Aaliyah Zamudio DO Date of Service: 05/30/25 Procedure(s): MM surgical specimen LT Accession Number(s): ([id number]) MM/MM surgical specimen LT: POST LUMPECTOMY Copies to: Jennie Landrum DO CLINICAL INFORMATION: [Left] breast lumpectomy. SPECIMEN RADIOGRAPH: A single radiograph of the [left] breast specimen showed a metallic marking clip and radioiodine seed within the specimen. The images were reviewed by the attending physician during the procedure. Impression dictated by: Denny Escalante M.D. 05/30/2025 2:10 PM Dictation Location: [place] [address] Dictated By: Denny Escalante MD 05/30/25 1408 Signed By: 05/30/25 1410 Normal [facility] US breast needle loc LTon US breast needle loc LT [facility] [place] [address] Ultrasound Report Signed Patient: Shazia Chou MR#: [id number] : 1990 Acct:[id number] Age/Sex: 34 / F ADM Date: 05/30/25 Loc: [place] Room: Type: [facility] Attending Dr: Aaliyah Zamudio DO Ordering Provider: Aaliyah Zamudio DO Date of Service: 05/29/25 US/US breast needle loc LT: LEFT U/S GUIDED RADIOACTIVE SEED LOC ([id number]) MM/MM diagnostic mammo LT w/CAD: POST U/S [...] Hadley M.D. 05/29/2025 11:38 AM Dictation Location: [facility] Tech: Molly Price Transcribed By: MARKY 05/29/25 1138 Dictated By: Clinton Hadley DO 05/29/25 113 Signed By: 05/29/25 1138 Normal [facility] US breast needle loc LT [facility] [place] [address] Ultrasound Report Signed Patient: Shazia Chou MR#: [id number] : 1990 Acct:[id number] Age/Sex: 34 / F ADM Date: 05/04/25 Loc: [place] Room: Type: [facility] Attending Dr: Aaliyah Zamudio DO Ordering Provider: Aaliyah Zamudio DO Date of Service: 05/29/25 US/US breast needle loc LT: LEFT U/S GUIDED RADIOACTIVE SEED LOC ([id number]) MM/MM diagnostic mammo LT w/CAD: POST U/S [...] Hadley M.D. 05/29/2025 11:38 AM Dictation Location: [facility] Tech: Molly Price Transcribed By: MARKY 05/29/25 1138 Dictated By: Clinton Hadley DO 05/29/25 113 Signed By: 05/29/25 1138 Romeo [facility] Heart and Vascular Office/Cl [...] Jak W, CAR Within [address] [place] [address]- Additional Instructions: Nata BHAKTA, Jak W, CAR Within 3 months [address] [place] [address]- Additional Instructions: Problem List/Past Medical History Ongoing Alcohol abuse, uncomplicated Bipolar disorder BMI 31.0-31.9,adult Borderline personality disorder Chronic pain syndrome History of bypass of stomach Hypertension Iron deficiency anemia Left breast mass Muscle weakness-general Obesity (BMI 30-39.9) ADIEN (obstructive sleep apnea) Overweight (BMI 25.0-29.9) Palpitations [...] 0 Allergies (more content not included)... Normal [facility] Comment on above: Result Comment: Elec tronically Signed By: Nata BHAKTA, Jak W\.br\Date and Time Signed: 04/27/25 15:42 EDT\.br\Electronically Co-Signed By: Roxana Shipman\.br\Date and Time Co-Signed: 04/27/25 15:40 EDT MM diagnostic mammo LT w/CAD on 04-26-2025 MM diagnostic mammo LT w/CAD [facility] [place] [address] Ultrasound Report Signed Patient: Shazia Chou MR#: [id number] : 1990 Acct:[id number] Age/Sex: 34 / F ADM Date: 04/26/25 Loc: [place] Room: Type: [facility] Attending Dr: Aaliyah Zamudio DO Ordering Provider: Aaliyah Zamudio DO Date of Service: 04/26/25 MM/MM diagnostic mammo LT w/CAD: follow up for Left breast Upper outer quadrant ([id number]) US/US breast LT limited: follow with mamm [...] Escalante M.D. 04/26/2025 10:15 AM Dictation Location: [facility] Tech: Shazia Paynejean Vaughn Transcribed By: MARKY 04/26/25 1015 Dictated By: Denny Escalante MD 04/26/25 1009 Signed By: 04/26/25 1015 Normal [facility] NM Myocardial Spect Rest/Str ess 1 Dayon 04-26-2025 NM Myocardial Spect Rest/Stress 1 Day Exam Date/Time: 04/17/2025 11:57 EDT Reason for Exam: R00.2;[place] [address] Nuclear Stress Report Name: SHAZIA CHOU Study Date: 04/17/2025 08:00 AM Patient Location: [facility] FT : 1990 (M/d/yyyy) Gender: Female Age: 34 yrs Ethnicity: T Reason For Study: R00.2;Chest pain Ordering Physician: Jak Peace Referring Physician: Jak Peace Protocol 62000 Pharmacologic Lexiscan stress with Isotope. Study Protocol: [...] Signed by: Catalino Vaca MD Transcribed by: [facility] Technologist: SHAHZAD Walters [facility] S. pyogenes DNA JOSÉ MIGUEL+probe No m (Unsp spec)on 04-09-2025 Interpretation and review of laboratory results Normal [facility] RESULT Negative Negative [facility] Event Monitoron 03-15-2025 Event [...] rhythm. READ BY: terrell Arredondo Dictated: 03/10/2025 [id number] Transcribed: 03/14/2025 cc:*Jak Peace M.D. [facility] Comment on above: Result Comment: Elec tronically Signed By: Lio BHAKTA, Catalino Baker\.br\Date and Time Signed: 03/15/25 07:49 EDT Main OR Intraoperative Recor don 03-03-2025 Main OR Intraoperative Record Main OR Intraoperative Record IntraOp Document Type FTPM Summary Primary Physician: Babar Mayers DO Finalized Date/Time: 03/03/25 08:45:29 Pt. Name: SHAZIA CHOU/Sex: 1990 Female Med Rec #: [id number] Physician: Babar Mayers DO Financial #: [id number] Pt. Type: P Room/Bed: / Admit/Disch: 03/03/25 [...] Lulu Bellamy Role Performed Surgeon - Primary Forensic Psychiatrist - Primary Scrub - Primary Time In 03/03/25 08:33:00 03/03/25 08:33:00 03/03/25 08:33:00 Time Out 03/03/25 08:45:00 03/03/25 08:45:00 03/03/25 08:45:00 Procedure MEDIAL BRANCH MEDIAL BRANCH MEDIAL BRANCH BLOCK(Bilateral) BLOCK(Bilateral) BLOCK(Bilateral) Comments Last Modified By: Corby Rand RN, RN, Christopher Harvey RN, Christopher M 03/03/25 08:44:15 M 03/03/25 08:44:15 03/03/25 08:44:15 Entry 4 Case Attendee Isaac DAWN(R)Amina Role Performed [employer]usement [employer] Manager Time In 03/03/25 08:33:00 Time Out [...] Babar Mayers DO Start 03/03/25 08:36:00 Stop 06/20/25 08:44:00 Anesthesia Type None Surgical Service Pain [...] and tissue Entry 1 Skin Integrity Intact, [place], Warm, & Skin Abnormality No Dry Outcomes [...] Checked Ye (more content not included)... Normal [facility] Main OR Preoperative Recordo n 03-03-2025 Main OR Preoperative Record Main OR Preoperative Record Holding Area Document Type FTPM Summary Primary Physician: Babar Mayers DO Finalized Date/Time: 03/03/25 07:33:54 Pt. Name: SHAZIA CHOU/Sex: 1990 Female Med Rec #: [id number] Physician: Babar Mayers DO Financial #: [id number] Pt. Type: P Room/Bed: / Admit/Disch: 03/03/25 [...] By: Gabrielle Sultana RN 03/03/25 07:33 Normal [facility] CBC w/Indiceson 03-02-2025 Erythrocyte distribution width (RBC) [Ratio] 14.4 % High 10.9-14.2 [facility] Comment on above: Performed By: #### 2 [id number] #### [facility] [address] [place] [address] Hematocrit (Bld) [Volume fraction] 39.0 % Normal 34.0-46.0 [facility] Comment on above: Performed By: #### 2 [id number] #### [facility] [address] [place] [address] Hemoglobin (Bld) [Mass/Vol] 13.2 g/dL Normal 12.0-16.0 [facility] Comment on above: Performed By: #### 2 [id number] #### [facility] [address] [place] [address] MCH (RBC) [Entitic mass] 33.5 pg Normal 27.0-34.0 [facility] Comment on above: Performed By: #### 2 [id number] #### [facility] [address] [place] [address] MCHC (RBC) [Mass/Vol] 33.8 g/dL Normal 31.4-36.0 [facility] Comment on above: Performed By: #### 2 [id number] #### [facility] [address] [place] [address] MCV (RBC) [Entitic vol] 99.1 fL Normal 80.0-100.0 [facility] Comment on above: Performed By: #### 2 [id number] #### [facility] [address] [place] [address] Platelet 325.0 E9/L Normal 150.0-500.0 [facility] Comment on above: Performed By: #### 2 [id number] #### [facility] [address] [place] [address] Platelet mean volume (Bld) [Entitic vol] 9.5 fL Normal 6.4-10.8 [facility] Comment on above: Performed By: #### 2 [id number] #### [facility] [address] [place] [address] RBC 3.9 E12/L Low 4.3-5.9 [facility] Comment on above: Performed By: #### 2 [id number] #### [facility] [address] [place] [address] RBC morphology finding Nom (Bld) NORMAL Invalid Interpretation Code [facility] Comment on above: Performed By: #### 2 [id number] #### [facility] [address] [place] [address] WBC 13.1 E9/L High 4.0-11.0 [facility] Comment on above: Performed By: #### 2 [id number] #### [facility] [address] [place] [address] CHEMISTRYOrdered By: SYSTEM SYSTEM on 03-02-2025 Ferritin [Mass/Vol] 11 ng/mL Normal 11 - 307 ng/mL Remisol Chem Iron [Mass/Vol] 156 ug/dL High 35 - 153 mcg/dL Remisol Chem Iron binding capacity [Mass/Vol] 403 ug/dL High 250 - 400 mcg/dL Remisol Chem Transferrin [Mass/Vol] 288 mg/dL Normal 200 - 370 mg/dL Remisol Chem Ferritinon 03-02-2025 Ferritin Lvl 11 ng/mL Normal 11-307 [facility] Comment on above: Performed By: #### 2 [id number] #### [facility] [address] [place] [id number] HEMATOLOGYOrdered By: SYSTEM SYSTEM on 03-02-2025 Erythrocyte [...] Ironon 03-02-2025 Iron 156 microgram/dL High 35-153 [facility] Comment on above: Performed By: #### 2 [id number] #### [facility] [address] [place] [address] TIBC Calculatedon 03-02-2025 TIBC 403 microgram/dL High 250-400 [facility] Comment on above: Performed By: #### 1 [id number] #### [facility] [address] [place] [address] Transferrin [Mass/Vol] 288 mg/dL Normal 200-370 [facility] Comment on above: Performed By: #### 1 [id number] #### [facility] [address] [place] [address] ED Note-Physicianon 02-22-20 ED Note-Physician ED Note-Physician [...] and symmetry. No ataxia with finger-nose or [id number]. Intact strength and sensation of bilateral upper [...] unspecified) Dizzi (more content not included)... Normal [facility] Comment on above: Result Comment: Elec [...] DO Transcribed by: MARCO Technologist: DANISH Walters [facility] BMPon 02-17-2025 Anion gap [Moles/Vol] 14 mmol/L Normal 6-16 [facility] Comment on above: Performed By: #### 2 [id number] #### [facility] [address] [place] [address] BUN/Creat Ratio 16 No Units Normal 10-20 [facility] Comment on above: Performed By: #### 2 [id number] #### [facility] [address] [place] [address] Calcium [Mass/Vol] 10.4 mg/dL Normal 8.9-11.1 [facility] Comment on above: Performed By: #### 2 [id number] #### [facility] [address] [place] [address] Chloride [Moles/Vol] 105 mmol/L Normal 101-111 [facility] Comment on above: Performed By: #### 2 [id number] #### [facility] [address] [place] [address] CO2 [Moles/Vol] 21 mmol/L Normal 21-31 [facility] Comment on above: Performed By: #### 2 [id number] #### [facility] [address] [place] [address] Creatinine [Mass/Vol] 0.7 mg/dL Normal 0.5-1.3 [facility] Comment on above: Performed By: #### 2 [id number] #### [facility] [address] [place] [address] Glucose [Mass/Vol] 109 mg/dL Normal 55-199 [facility] Comment on above: Performed By: #### 2 [id number] #### [facility] [address] [place] [address] Potassium [Moles/Vol] 3.8 mmol/L Normal 3.5-5.3 [facility] Comment on above: Performed By: #### 2 [id number] #### [facility] [address] [place] [address] Sodium [Moles/Vol] 136 mmol/L Normal 135-145 [facility] Comment on above: Performed By: #### 2 [id number] #### [facility] [address] [place] [address] Urea nitrogen [Mass/Vol] 11 mg/dL Normal 5-21 [facility] Comment on above: Performed By: #### 2 [id number] #### [facility] [address] [place] [address] CBC w/ Auto Diffon 5 Basophil Absolute 0.0 E9/L Normal 0.0-0.2 [facility] Comment on above: Performed By: #### 2 [id number] #### [facility] [address] [place] [address] Basophils/100 WBC (Bld) 0.3 % Normal 0.0-2.0 [facility] Comment on above: Performed By: #### 2 151266 #### [facility] [address] [place] [address] Eos Absolute 0.0 E9/L Normal 0.0-0.5 [facility] Comment on above: Performed By: #### 2 [id number] #### [facility] [address] [place] [address] Eosinophils/100 WBC (Bld) 0.2 % Normal 0.0-8.0 [facility] Comment on above: Performed By: #### 2 643181 #### [facility] [address] [place] [address] Erythrocyte distribution width (RBC) [Ratio] 14.2 % Normal 10.9-14.2 [facility] Comment on above: Performed By: #### 2 742298 #### [facility] [address] [place] [address] Hematocrit (Bld) [Volume fraction] 40.2 % Normal 34.0-46.0 [facility] Comment on above: Performed By: #### 2 [id number] #### [facility] [address] [place] [address] Hemoglobin (Bld) [Mass/Vol] 13.6 g/dL Normal 12.0-16.0 [facility] Comment on above: Performed By: #### 2 336304 #### [facility] [address] [place] [address] Lymph Absolute 1.4 E9/L Normal 1.0-4.0 [facility] Comment on above: Performed By: #### 2 622533 #### [facility] [address] [place] [address] Lymphocytes/100 WBC (Bld) 16.5 % Normal 14.0-50.0 [facility] Comment on above: Performed By: #### 2 700292 #### [facility] [address] [place] [address] MCH (RBC) [Entitic mass] 32.6 pg Normal 27.0-34.0 [facility] Comment on above: Performed By: #### 2 533439 #### [facility] [address] [place] [address] MCHC (RBC) [Mass/Vol] 33.8 g/dL Normal 31.4-36.0 [facility] Comment on above: Performed By: #### 2 [id number] #### [facility] [address] [place] [address] MCV (RBC) [Entitic vol] 96.4 fL Normal 80.0-100.0 [facility] Comment on above: Performed By: #### 2 393284 #### [facility] [address] [place] [address] [place] Absolute 0.5 E9/L Normal 0.2-1.0 [facility] Comment on above: Performed By: #### 2 314357 #### [facility] [address] [place] [address] Monocytes/100 WBC (Bld) 5.7 % Normal 4.0-14.0 [facility] Comment on above: Performed By: #### 2 054700 #### [facility] [address] [place] [address] Neutro Absolute 6.5 E9/L Normal 2.0-7.5 [facility] Comment on above: Performed By: #### 2 [id number] #### [facility] [address] [place] [address] Neutro Auto 77.3 % High 36.0-75.0 [facility] Comment on above: Performed By: #### 2 347180 #### [facility] [address] [place] [address] Platelet 350.0 E9/L Normal 150.0-500.0 [facility] Comment on above: Performed By: #### 2 658118 #### [facility] [address] [place] [address] Platelet mean volume (Bld) [Entitic vol] 9.3 fL Normal 6.4-10.8 [facility] Comment on above: Performed By: #### 2 [id number] #### [facility] [address] [place] [address] RBC 4.2 E12/L Low 4.3-5.9 [facility] Comment on above: Performed By: #### 2 908656 #### [facility] [address] [place] [address] WBC 8.4 E9/L Normal 4.0-11.0 [facility] Comment on above: Performed By: #### 2 422221 #### [facility] [address] [place] [address] CHEMISTRYOrdered By: SYSTEM SYSTEM on 02-17-2025 Albumin [...] 30.7 s Normal 25.1 - 36.5 second(s) [facility] Comment on above: Interpretive Data: [...] the same coagulation reagent and instrumentation as [facility]. Currently there are no coagulation studies available worldwide for children to 14 days, and no normal ranges. Heparin therapeutic range (represented by Anti-Factor Xa activity of 0.2 - 0.4 U/mL) corresponds to PTT of 56.6 - 109.0 sec. INR Coag (PPP) [Relative time] 0.88 {INR} Invalid Interpretation Code [facility] Comment on above: Interpretive Data: I NR results are specifically intended to assess patients stabilized on long-term Anticoagulation therapy suggested INR s Less Intensive Anticoagulation 2.0 3.0 Conventional Range 3.0 4.5 PT Coag (PPP) [Time] 9.8 s Normal 9.4 - 1 2.5 second(s) [facility] Comment on above: Interpretive Data: [...] the same coagulation reagent and instrumentation as [facility]. Currently there are no coagulation studies available worldwide for children to 14 days, and no normal ranges. ED Clinical Summaryon 2024 ED Clinical Summary ED Clinical Summary [place] [id number] ED Clinical Summary Person Information Name: SHAZIA CHOU [place] Age: 34 Years : 1990 Sex: Female Language: Salvadorean PCP: Jennie Durand DO Marital Status: Phone: [phone] Visit Id: Visit Reason: Headache; Cough; Dizziness; [...] 02/17/2025 21:08:51 02/17/2025 21:08:51 02/17/2025 21:08:51 ADDRESS: [address] [place] [phone] PHYS DOC NOTES: MEDICAL INFORMATION: Prescriptions Given: New Medications [id number], [address], [place] [id number], [phone] brompheniramine/dextrom ethorphan/PSE (Bromfed DM oral syrup) 10 [...] up: With: Address: When: Jennie Durand [address] [place] [address] Business (1) In 3 days 02/20/2025 DIAGNOSIS: Bronchitis; Cough; Dizziness; Vasovagal near syncope Normal [facility] ED Patient Summaryon 025 ED Patient Summary ED Patient Summary [address] [address] Patient Discharge Instructions Person Information Name: SHAZIA CHOU Age: 34 Years Arrival Date: 02/17/2025 18:53:55 Discharge Diagnosis: Bronchitis; Cough; Dizziness; Vasovagal near syncope Primary Care Physician: Jennie Durand DO Provider Information Primary Provider: Bakari Chester DO Advanced Car Filler:Ben Garber PA-C The exam and treatment you received in the Emergency Department were for an urgent problem and are not intended as complete care. It is important that you follow up with a doctor, nurse practitioner, or physician???s hospital clinic assistant for ongoing care. If your symptoms [...] Instructions: With: Address: When: Jennie Durand [address] [place] [address] Business (1) In 3 days 02/20/2025 In the event that this physician does not participate in your insurance network, please consult with your insurance company to find a nearby participating provider. Patient Education Materials: Near-Syncope; Acute Bronchitis, Adult A MESSAGE TO ALL PATIENTS REGARDING OPIOIDS PRESCRIPTION OPIOIDS: WHAT YOU NEED TO KNOW Prescription opioids can be used to help relieve uzfahqjx-sj-mpqrxc pain and are often prescribed following a [...] from the Food and Drug Administration (www.fda.gov/Drugs/Reso mechellemarilynForYou). ??? Visit www.cdc.gov/drugoverdos e to learn about the risks of opioids abuse and overdose. ??? If you believe you may be struggli (more content not included)... Normal [facility] HEMATOLOGYOrdered By: SYSTEM SYSTEM on 02-17-2025 [...] 02-17-2025 Albumin [Mass/Vol] 4.5 g/dL Normal 3.3-5.0 [facility] Comment on above: Performed By: #### 2 [id number] #### [facility] [address] [place] [address] Albumin/Globulin [Mass ratio] 1.5 {ratio} Normal 1.1-2.2 [facility] Comment on above: Performed By: #### 2 550646 #### [facility] [address] [place] [address] Alk Phos 55 Int._Unit/L Normal 21-98 [facility] Comment on above: Performed By: #### 2 [id number] #### [facility] [address] [place] [address] ALT 12 Int._Unit/L Normal 6-46 [facility] Comment on above: Performed By: #### 2 [id number] #### [facility] [address] [place] [address] AST 17 Int._Unit/L Normal 5-43 [facility] Comment on above: Performed By: #### 2 [id number] #### [facility] [address] [place] [address] Bili Direct 0.1 mg/dL Normal 0.0-0.4 [facility] Comment on above: Performed By: #### 2 791027 #### [facility] [address] [place] [address] Bili Indirect 0.3 mg/dL Normal 0.1-0.9 [facility] Comment on above: Performed By: #### 2 405572 #### [facility] [address] [place] [address] Bili Total 0.4 mg/dL Normal 0.0-1.1 [facility] Comment on above: Performed By: #### 2 953522 #### [facility] [address] [place] [address] Globulin (S) [Mass/Vol] 3.0 g/dL Normal 1.4-4.0 [facility] Comment on above: Performed By: #### 2 760301 #### [facility] [address] [place] [address] Protein [Mass/Vol] 7.5 g/dL Normal 6.0-7.8 [facility] Comment on above: Performed By: #### 2 [id number] #### [facility] [address] [place] [address] Magnesiumon 02-17-2025 Magnesium [Mass/Vol] 1.8 mg/dL Normal 1.3-2.4 [facility] Comment on above: Performed By: #### 2 058222 #### [facility] [address] [place] [address] PT & PTTon 02-17-2025 INR Coag (PPP) [Relative time] 0.88 {INR} Invalid Interpretation Code [facility] Comment on above: Result Comment: INR results are specifically intended to assess patients stabilized on long-term Anticoagulation therapy suggested INR???s ???Less Intensive Anticoagulation??? 2.0 ??? 3.0 Conventional Range 3.0 ??? 4.5 Performed By: #### 1 [id number] #### [facility] [address] [place] [address] PT 9.8 second(s) Normal 9.4-12.5 [facility] Comment on above: Result Comment: 15 [...] the same coagulation reagent and instrumentation as [facility]. Currently there are no coagulation studies available worldwide for children to 14 days, and no normal ranges. Performed By: #### 1 [id number] #### [facility] [address] [place] [address] PTT 30.7 second(s) Normal 25.1-36.5 [facility] Comment on above: Result Comment: Para [...] the same coagulation reagent and instrumentation as [facility]. Currently there are no coagulation studies available worldwide for children to 14 days, and no normal ranges. Heparin therapeutic range (represented by Anti-Factor Xa activity of 0.2 - 0.4 U/mL) corresponds to PTT of 56.6 - 109.0 sec. Performed By: #### 1 [id number] #### [facility] [address] [place] [address] Pre-Arrival Noteon 5 Pre-Arrival Note Pre-Arrival Note Pre-Arrival Summary Name: EDUARDA Current Date: 02/17/2025 18:54:29 EDT Gender: Female Date of : Age: 34 Pre-Arrival Type: EMS ETA: 02/17/2025 19:10:00 EDT Primary Care Physician: Presenting Problem: dizziness Pre-Arrival User: Tania RNLibby Referring Source: Location: [place] Completion Date/Time: 02/17/2025 18:40:00 [facility] Emergency Department Pre-Hospital Report Form Vital Signs: Pre-Hospital Report: Treatment in Route: Response to Treatment: Misc. Issues: Normal [facility] Troponin 0 Hr.on 02-17-2025 Troponin HS <2.30 Low 10.10-27.10 [facility] Comment on above: Result Comment: The 95% CI (Confidence Interval) PPV (Positive Predictive Value) for myocardial infarction in females is 38 pg/mL, in males 51 pg/mL. The results should be used in conjunction with clinical conditions of myocardial infarction. (Access High Sensitivity Troponin I Instructions For Use, [place], April 2018) Performed By: #### 1 [id number] #### [facility] [address] [place] [address] UA with Cult Rflxon 02-18-20 25 Color (U) Light-Yellow Normal Yellow [facility] Comment on above: Result Comment: Micr oscopic readings are only performed on those samples that meet specific criteria set forth by [facility]. Performed By: #### 4 [id number] #### [facility] [address] [place] [address] Glucose (U) [Mass/Vol] Negative Normal Negative [facility] Comment on above: Performed By: #### 4 [id number] #### [facility] [address] [place] [address] Ketones Ql (U) Negative Normal Negative [facility] Comment on above: Performed By: #### 4 [id number] #### [facility] [address] [place] [address] UA Blood Negative Normal Negative [facility] Comment on above: Performed By: #### 4 [id number] #### [facility] [address] [place] [address] UA Bacteria Trace Normal Trace [facility] Comment on above: Performed By: #### 4 [id number] #### [facility] [address] [place] [address] UA Clarity Clear Normal Clear [facility] Comment on above: Performed By: #### 4 [id number] #### [facility] [address] [place] [address] UA Leuk Est 25 Keven/uL Normal Negative [facility] Comment on above: Performed By: #### 4 [id number] #### [facility] [address] [place] [address] UA Mucous Negative Normal Negative [facility] Comment on above: Performed By: #### 4 [id number] #### [facility] [address] [place] [address] UA Nitrite Negative Normal Negative [facility] Comment on above: Performed By: #### 4 [id number] #### [facility] [address] [place] [address] UA pH 7.5 Invalid Interpretation Code 5.0-9.0 [facility] Comment on above: Performed By: #### 4 [id number] #### [facility] [address] [place] [address] UA Protein Negative Normal Negative [facility] Comment on above: Performed By: #### 4 [id number] #### [facility] [address] [place] [address] UA RBC 0-3 Normal 0-3 [facility] Comment on above: Performed By: #### 4 [id number] #### [facility] [address] [place] [address] UA Spec Grav 1.006 Invalid Interpretation Code 1.005-1.030 [facility] Comment on above: Performed By: #### 4 [id number] #### [facility] [address] [place] [address] UA Squam Epithelial 3-4 Invalid Interpretation Code [facility] Comment on above: Performed By: #### 4 [id number] #### [facility] [address] [place] [address] UA Transitional Epithelial 0-2 Normal 0-2 [facility] Comment on above: Performed By: #### 4 [id number] #### [facility] [address] [place] [address] UA Urobilinogen Negative Normal Negative [facility] Comment on above: Performed By: #### 4 [id number] #### [facility] [address] [place] [address] UA WBC 0-5 Normal 0-5 [facility] Comment on above: Performed By: #### 4 [id number] #### [facility] [address] [place] [address] Urobilinogen (U) [Mass/Vol] Negative Normal Negative [facility] Comment on above: Performed By: #### 4 [id number] #### [facility] [address] [place] [address] UA Spec Desc Clean Catch Normal [facility] Comment on above: Performed By: #### 4 [id number] #### [facility] [address] [place] [address] URINALYSISOrdered By: SYSTEM SYSTEM on 02-17-2025 Bacteria Auto Ql (U) Trace /HPF Normal Trace/HPF [facility] UA Auto SS Bilirubin Ql (U) Negative Normal Negativemg/ d L [facility] UA Auto SS Clarity (U) Clear (02/17/25 7:24 PM) Normal Clear [facility] UA Auto SS Color (U) Light-Yellow 1 (02/17/25 7:24 PM) Normal Yellow [facility] UA Auto SS Comment on above: Interpretive Data: M icroscopic readings are only performed on those samples that meet specific criteria set forth by [facility]. Epithelial cells.squamous Auto (Urine sed) [...] 02-17-2025 eGFR 115 mL/min/1.73 m2 Normal >=59 [facility] Comment on above: Performed By: #### 1 [id number] #### [facility] [address] [place] [address] Heart and Vascular Office/Cl inic Noteon 02-16-2025 [...] beat which represents less than 0.01%. 7. ID interval 0.15 second, QRS 0.10 second, QT [...] Foot, Foot, Gastric (more content not included)... [facility] Comment on above: Result Comment: [...] Snyder MD Transcribed by: MARCO Technologist: MELYSSA [facility] Holter Monitoron 02-13-2025 Holter Monitor Holter Monitor [...] beat which represents less than 0.01%. 7. ID interval 0.15 second, QRS 0.10 second, QT 0.40 second at heart rate of 64 beats per minute. READ BY: terrell Hernandez Dictated: 02/10/2025 [id number] Transcribed: 02/13/2025 [facility] Comment on above: Result Comment: Elec tronically Signed By: Jeremiah BHAKTA, Fernandez\.br\Date and Time Signed: 02/13/25 18:05 EDT Main OR Intraoperative Recor don 01-24-2025 Main OR Intraoperative Record Main OR Intraoperative Record IntraOp Document Type FTPM Summary Primary Physician: Babar Mayers DO Finalized Date/Time: 01/24/25 09:58:05 Pt. Name: SHAZIA CHOU/Sex: 1990 Female Med Rec #: [id number] Physician: Babar Mayers DO Financial #: [id number] Pt. Type: P Room/Bed: / Admit/Disch: 01/24/25 [...] Corby Blue Role Performed Surgeon - Primary Forensic Psychiatrist - Primary Scrub - Primary Time In 01/24/25 09:48:00 01/24/25 09:48:00 01/24/25 09:48:00 Time Out 01/24/25 09:58:00 01/24/25 09:58:00 01/24/25 09:58:00 Procedure MEDIAL BRANCH MEDIAL BRANCH MEDIAL BRANCH BLOCK(Bilateral) BLOCK(Bilateral) BLOCK(Bilateral) Comments Last Modified By: Nolvia Rodas RN, RN, Madison A Pritchard RN, Madison A 01/24/25 09:57:49 01/24/25 09:57:49 01/24/25 09:57:49 Entry 4 Case Attendee Jennie Hurtado Role Performed Amusement Centre Manager Time In 01/24/25 09:48:00 Time Out [...] and tissue Entry 1 Skin Integrity Intact, [place], Warm, & Skin Abnormality No Dry Outcomes [...] ROLLE, Vu (more content not included)... Normal [facility] Main OR Preoperative Recordo n 01-24-2025 Main OR Preoperative Record Main OR Preoperative Record Holding Area Document Type FTPM Summary Primary Physician: Babar Mayers DO Finalized Date/Time: 01/24/25 08:43:59 Pt. Name: SHAZIA CHOU/Sex: 1990 Female Med Rec #: [id number] Physician: Babar Mayers DO Financial #: [id number] Pt. Type: P Room/Bed: / Admit/Disch: 01/24/25 [...] Gabrielle Sultana RN 01/24/25 08:43 Normal [facility] MR head/brain wo/w lorenzo MR head/brain wo/w cherise [facility] Main [address] [address] MRI Report Signed Patient: Shazia Chou MR#: [id number] : 1990 Acct:[id number] Age/Sex: 33 / F ADM Date: 12/16/24 Loc: MR Room: Type: [facility] CLI Attending Dr: Corby Larsen DO [...] Denny Escalante M.D.12/16/2024 2:50 PM Dictation Location: [place] [address] Transcribed By: MARKY 12/16/24 1450 Dictated By: Denny Escalante MD 12/16/24 1404 Signed By: 12/16/24 1450 Normal [facility] Magnetic resonance imaging r eportOrdered By: Denny Escalante on 12-16-2024 Study report [facility] Main [place] [address] [place] [address] MRI Report Signed Patient: Shazia Chou MR#: [id number] : 1990 Acct:[id number] Age/Sex: 33 / F ADM Date: 5 Loc: MR Room: Type: [facility] CLI Attending Dr: Corby Larsen DO [...] Denny Escalante M.D.12/16/2024 2:50 PM Dictation Location: [place] [address] Transcribed By: [facility] 12/16/24 7981 Dictated By: Denny Escalante MD 12/16/24 1404 Signed By: 12/16/24 1450 [facility] Work Phone: XR Spine Lumbar Complete [...] MD Transcribed by: MARCO Technologist: CHAN Walters [facility] 24 hour urine albumin/total protein ratio by electrophoresisOrdered By: Jacob Baker on 12-12-2024 Albumin Elph (24H U) [Mass fraction] Albumin/Protein.total in 24 hour Urine by Electrophoresis . [facility] 24 hour urine gamma globulin /total protein ratio by electrophoresisOrdered By: Jacob Baker on 12-12-2024 Gamma globulin Elph (24H U) [Mass fraction] Gamma globulin/Protein.total in 24 hour Urine by Electrophoresis . [facility] 24 hour urine protein monocl onal/total protein by electrophoresisOrdered By: Jacob Baker on 12-12-2024 Protein.monoclonal Elph (24H U) [Mass fraction] Protein.monoclonal/Prot ein.total in 24 hour Urine by Electrophoresis Not Observed [facility] CYNDI Antinuclear Antibodieson 12-12-2024 Antinuclear Abs, IFA Negative Normal . [facility] Comment on above: Result Comment: Nega tive <1:80 Borderline 1:80 Positive >1:80 ICAP nomenclature: AC-0 For more information about Hep-2 cell patterns use ANApaPediatric BioscienceerReality Jockey.org, the official website for the International Consensus on Antinuclear Antibody (CYNDI) Patterns (ICAP). Performed at: [facility] [address] [id number] Hot Dimpling Machine Operator: Santy Storey PhD, Phone: [phone] PERFORMED BY: [address] [place] [address] PATHOLOGIST SCIENCE FACULTY MEMBER CARLOS KNAPP M.D. Performed By: #### A NA #### [facility] , Result Comment: Nega tive <1:80 Borderline 1:80 Positive >1:80 ICAP nomenclature: AC-0 For more information about Hep-2 cell patterns use Schol[employer]ly.Cloudability, the official website for the International Consensus on Antinuclear Antibody (CYNDI) Patterns (ICAP). Performed at: [facility] [address] [id number] Hot Dimpling Machine Operator: Santy Storey PhD, Phone: [phone] Performed By: #### A DNA, SJOGRENS, HELM, C3, HISAB, CCP, CHROMATIN, CENTROME, RA, CYNDI, [id number], JO1, B2 GLYPROT, ANTIR, CARDIO GMA, C4, CH50 #### [facility] , Alanine aminotransferase [En zymatic activity/volume] in Serum or PlasmaOrdered By: Jacob Baker on 12-12-2024 ALT [Catalytic activity/Vol] Alanine aminotransferase [Enzymatic activity/volume] in Serum or Plasma 7-52 [facility] Albumin [Mass/volume] in Ser um or Plasma by Bromocresol green (BCG) dye binding methoOrdered By: Jacob Baker on 12-12-2024 Albumin BCG dye [Mass/Vol] Albumin [Mass/volume] in Serum or Plasma by Bromocresol green (BCG) dye binding metho 3.5-5.7 [facility] Alkaline phosphatase [Enzyma tic activity/volume] in Serum or PlasmaOrdered By: Jacob Baker on 12-12-2024 ALP [Catalytic activity/Vol] Alkaline phosphatase [Enzymatic activity/volume] in Serum or Plasma 34-104 [facility] Anti-Centromere B Antibodies on 12-12-2024 Anti-Centromere B Antibodies <0.2 Normal 0.0-0.9 [facility] Comment on above: Result Comment: Perf ormed at: - [facility] [place] [id number] Hot Dimpling Machine Operator: Santy Storey PhD, Phone: [phone] Performed By: #### A DNA, SJOGRENS, HELM, C3, HISAB, CCP, CHROMATIN, CENTROME, RA, CYNDI, [id number], JO1, B2 GLYPROT, ANTIR, CARDIO GMA, C4, CH50 #### [facility] , Anti-RNPon 12-12-2024 Anti-COMMERCIAL ESTIMATOR <0.2 Normal 0.0-0.9 [facility] Comment on above: Performed By: #### A DNA, SJOGRENS, HELM, C3, HISAB, CCP, CHROMATIN, CENTROME, RA, CYNDI, [id number], JO1, B2 GLYPROT, ANTIR, CARDIO GMA, C4, CH50 #### [facility] , Anti-Helm Antibodieson 11-14 Anti-Helm Antibodies <0.2 Normal 0.0-0.9 [facility] Comment on above: Performed By: #### A DNA, SJOGRENS, HELM, C3, HISAB, CCP, CHROMATIN, CENTROME, RA, CYNDI, [id number], JO1, B2 GLYPROT, ANTIR, CARDIO GMA, C4, CH50 #### [facility] , Anti-dsDNA(DBL)Abon 12-13-19 25 Anti-dsDNA(DBL)Ab 1 [IU]/mL Normal 0-9 [facility] Comment on above: Result Comment: Nega tive <5 Equivocal 5 - 9 Positive >9 Performed By: #### A DNA, SJOGRENS, HELM, C3, HISAB, CCP, CHROMATIN, CENTROME, RA, CYNDI, [id number], JO1, B2 GLYPROT, ANTIR, CARDIO GMA, C4, CH50 #### [facility] , Anticardiolipin IgG/M/A, Qno n 12-12-2024 Anticardiolipin Ab, IgA,Qn <9 Normal 0-11 [facility] Comment on above: Result Comment: Nega tive: <12 Indeterminate: 12 - 20 Low-Med Positive: >20 - 80 High Positive: >80 Performed By: #### A DNA, SJOGRENS, HELM, C3, HISAB, CCP, CHROMATIN, CENTROME, RA, CYNDI, [id number], JO1, B2 GLYPROT, ANTIR, CARDIO GMA, C4, CH50 #### [facility] , Anticardiolipin Ab, IgG,Qn <9 Normal 0-14 [facility] Comment on above: Result Comment: Nega tive: <15 Indeterminate: 15 - 20 Low-Med Positive: >20 - 80 High Positive: >80 Performed By: #### A DNA, SJOGRENS, HELM, C3, HISAB, CCP, CHROMATIN, CENTROME, RA, CYNDI, [id number], JO1, B2 GLYPROT, ANTIR, CARDIO GMA, C4, CH50 #### [facility] , Anticardiolipin Ab, IgM,Qn <9 Normal 0-12 [facility] Comment on above: Result Comment: Nega tive: <13 Indeterminate: 13 - 20 Low-Med Positive: >20 - 80 High Positive: >80 Performed By: #### A DNA, SJOGRENS, HELM, C3, HISAB, CCP, CHROMATIN, CENTROME, RA, CYNDI, [id number], JO1, B2 GLYPROT, ANTIR, CARDIO GMA, C4, CH50 #### [facility] , Appearance of UrineOrdered B y: Jacob Chaneyrow on 12-12-2024 Appearance (U) Urine appearance Clear [place] Aspartate aminotransferase [ Enzymatic activity/volume] in Serum or PlasmaOrdered By: Jacob Chaneyrow on 12-12-2024 AST [Catalytic activity/Vol] Aspartate aminotransferase [Enzymatic activity/volume] in Serum or Plasma 13-39 [facility] Bacteria [Presence] in Urine by AutomatedOrdered By: Jacobparmjit Baker on 12-12-2024 Bacteria Auto Ql (U) Bacteria [Presence] in Urine by Automated None Seen [facility] Basophils Auto (Bld) [#/Vol] Ordered By: Jacob Baker on 12-12-2024 Basophils (Bld) [#/Vol] Automated basophil count 0.0-0.2 [facility] Basophils/100 WBC Auto (Bld) Ordered By: Jacob Baker on 12-12-2024 Basophils/100 WBC (Bld) Automated basophil % . [facility] Beta 2 Glycoprotein I Ab IgG /Mon 12-12-2024 Beta 2 Glycoprotein I Ab, IgG <9 Normal 0-20 [facility] Comment on above: Result [...] C3, HISAB, CCP, CHROMATIN, CENTROME, RA, CYNDI, [id number], JO1, B2 GLYPROT, ANTIR, CARDIO GMA, C4, CH50 #### [facility] , Beta 2 Glycoprotein I Ab, IgM <9 Normal 0-32 [facility] Comment on above: Result Comment: Resu lt Units: GPI IgM units The reference interval reflects a 3SD or 99th percentile interval, which is thought to represent a potentially clinically significant result in accordance with the International Consensus Statement on the classification criteria for definitive antiphospholipid syndrome (APS). J Thromb Haem 2006;4:295-306. Performed at: - [facility] [id number] Hot Dimpling Machine Operator: Santy Storey PhD, Phone: [phone] Performed By: #### A DNA, SJOGRENS, HELM, C3, HISAB, CCP, CHROMATIN, CENTROME, RA, CYNDI, [id number], JO1, B2 GLYPROT, ANTIR, CARDIO GMA, C4, CH50 #### [facility] , Beta 2 glycoprotein 1 IgG Ab [Units/volume] in SerumOrdered By: Jacob Baker on 12-12-2024 Beta 2 glycoprotein 1 IgG Qn (S) Beta 2 glycoprotein 1 IgG Ab [Units/volume] in Serum 0-20 [facility] Comment on above: Result Units: GPI [...] [Presence] in Urine by Test strip Negative [facility] Bilirubin.total [Mass/volume ] in Serum or PlasmaOrdered By: Jacob Baker on 12-12-2024 Bilirubin [Mass/Vol] Bilirubin.total [Mass/volume] in Serum or Plasma 0.3-1.0 [facility] C reactive protein [Mass/vol ume] in Serum or PlasmaOrdered By: Jacob Baker on 12-12-2024 CRP [Mass/Vol] C reactive protein [Mass/volume] in Serum or Plasma 0.0-0.5 [facility] C-Reactive Proteinon 025 CRP [Mass/Vol] mg/L Normal 0.0-0.5 [facility] Comment on above: Performed By: #### A DNA, SJOGRENS, HELM, C3, HISAB, CCP, CHROMATIN, CENTROME, RA, CYNDI, [id number], JO1, B2 GLYPROT, ANTIR, CARDIO GMA, C4, CH50 #### [facility] , Calcium [Mass/volume] in Ser um or PlasmaOrdered By: Jacob Baker on 12-12-2024 Calcium [Mass/Vol] Calcium [Mass/volume ] in Serum or Plasma 8.6-10.3 [facility] Carbon dioxide, total [Moles /volume] in Serum or PlasmaOrdered By: Jacob Baker on 12-12-2024 CO2 [Moles/Vol] Carbon dioxide, tota l [Moles/volume] in Serum or Plasma 21.0-31.0 [facility] Chloride [Moles/volume] in S tushar or PlasmaOrdered By: Jacob Baker on 12-12-2024 Chloride [Moles/Vol] Chloride [Moles/vol ume] in Serum or Plasma 98-107 [facility] Chromatin Antibodyon 025 Chromatin Antibody <0.2 Normal 0.0-0.9 [facility] Comment on above: Result Comment: PERF ORMED BY: [address] [place] [address] PATHOLOGIST SCIENCE FACULTY MEMBER CARLOS KNAPP M.D. Performed By: #### A DNA, SJOGRENS, HELM, C3, HISAB, CCP, CHROMATIN, CENTROME, RA, CYNDI, [id number], JO1, B2 GLYPROT, ANTIR, CARDIO GMA, C4, CH50 #### [facility] , Coagulation Profileon 2024 aPTT Coag (Bld) [Time] 29.5 s Normal 25.1-36.5 [facility] Comment on above: Result Comment: A he matocrit value greater than 55% may lead to inaccurate results in coagulation testing. Patients having hematocrit values >55% require a special collection tube for coagulation studies. Please contact the laboratory at [phone] for redraw instructions. PERFORMED BY: [facility] [address] [address] PATHOLOGIST SCIENCE FACULTY MEMBER CARLOS KNAPP M.D. Performed By: #### A DNA, SJOGRENS, HELM, C3, HISAB, CCP, CHROMATIN, CENTROME, RA, CYNDI, [id number], JO1, B2 GLYPROT, ANTIR, CARDIO GMA, C4, CH50 #### [facility] , INR Coag (PPP) [Relative time] 0.8 {INR} Normal [facility] Comment on above: Result [...] C3, HISAB, CCP, CHROMATIN, CENTROME, RA, CYNDI, [id number], JO1, B2 GLYPROT, ANTIR, CARDIO GMA, C4, CH50 #### [facility] , PT Coag (PPP) [Time] 9.6 s Normal 9.0-12.9 [facility] Comment on above: Result Comment: A he matocrit value greater than 55% may lead to inaccurate results in coagulation testing. Patients having hematocrit values >55% require a special collection tube for coagulation studies. Please contact the laboratory at [phone] for redraw instructions. Performed By: #### A DNA, SJOGRENS, HELM, C3, HISAB, CCP, CHROMATIN, CENTROME, RA, CNYDI, [id number], JO1, B2 GLYPROT, ANTIR, CARDIO GMA, C4, CH50 #### [facility] , Color Auto (U)Ordered By: Stephany Baker on 12-12-2024 Color (U) Color of Urine by Auto Yellow [facility] Complement C3on 12-12-2024 Complement C3 133 mg/dL Normal 82-167 [facility] Comment on above: Performed By: #### A DNA, SJOGRENS, HELM, C3, HISAB, CCP, CHROMATIN, CENTROME, RA, CYNDI, [id number], JO1, B2 GLYPROT, ANTIR, CARDIO GMA, C4, CH50 #### [facility] , Complement C4on 12-12-2024 Complement C4 23 mg/dL Normal 12-38 [facility] Comment on above: Performed By: #### A DNA, SJOGRENS, HELM, C3, HISAB, CCP, CHROMATIN, CENTROME, RA, CYNDI, [id number], JO1, B2 GLYPROT, ANTIR, CARDIO GMA, C4, CH50 #### [facility] , Complement Total (CH50)on Complement Total (CH50) >60 Normal >41 [facility] Comment on above: Result [...] determine out of range values. Performed at: [address] [id number] Hot Dimpling Machine Operator: Santy Storey PhD, Phone: [phone] PERFORMED BY: [place] [address] PATHOLOGIST SCIENCE FACULTY MEMBER CARLOS KNAPP M.D. Performed By: #### A DNA, SJOGRENS, HELM, C3, HISAB, CCP, CHROMATIN, CENTROME, RA, CYNDI, [id number], JO1, B2 GLYPROT, ANTIR, CARDIO GMA, C4, CH50 #### [facility] , Complete Blood Count Auto Di ffon 12-12-2024 Basophils (Bld) [#/Vol] 0.1 10*3/uL Normal 0.0-0.2 [facility] Comment on above: Performed By: #### A DNA, SJOGRENS, HELM, C3, HISAB, CCP, CHROMATIN, CENTROME, RA, CYNDI, [id number], JO1, B2 GLYPROT, ANTIR, CARDIO GMA, C4, CH50 #### [facility] , Basophils/100 WBC (Bld) 0.8 % Normal . [facility] Comment on above: Performed By: #### A DNA, SJOGRENS, HELM, C3, HISAB, CCP, CHROMATIN, CENTROME, RA, CYNDI, [id number], JO1, B2 GLYPROT, ANTIR, CARDIO GMA, C4, CH50 #### [facility] , Eosinophils (Bld) [#/Vol] 0.2 10*3/uL Normal 0.0-0.45 [facility] Comment on above: Performed By: #### A DNA, SJOGRENS, HELM, C3, HISAB, CCP, CHROMATIN, CENTROME, RA, CYNDI, [id number], JO1, B2 GLYPROT, ANTIR, CARDIO GMA, C4, CH50 #### [facility] , Eosinophils/100 WBC (Bld) 2.0 % Normal . [facility] Comment on above: Performed By: #### A DNA, SJOGRENS, HELM, C3, HISAB, CCP, CHROMATIN, CENTROME, RA, CYNDI, [id number], JO1, B2 GLYPROT, ANTIR, CARDIO GMA, C4, CH50 #### [facility] , Erythrocyte distribution width (RBC) [Ratio] 15.3 % Normal 11.9-15.3 [facility] Comment on above: Performed By: #### A DNA, SJOGRENS, HELM, C3, HISAB, CCP, CHROMATIN, CENTROME, RA, CYNDI, [id number], JO1, B2 GLYPROT, ANTIR, CARDIO GMA, C4, CH50 #### [facility] , Hematocrit (Bld) [Volume fraction] 40.4 % Normal 34.0-46.4 [facility] Comment on above: Performed By: #### A DNA, SJOGRENS, HELM, C3, HISAB, CCP, CHROMATIN, CENTROME, RA, CYNDI, [id number], JO1, B2 GLYPROT, ANTIR, CARDIO GMA, C4, CH50 #### [facility] , Hemoglobin (Bld) [Mass/Vol] 13.6 g/dL Normal 11.8-15.4 [facility] Comment on above: Performed By: #### A DNA, SJOGRENS, HELM, C3, HISAB, CCP, CHROMATIN, CENTROME, RA, CYNDI, [id number], JO1, B2 GLYPROT, ANTIR, CARDIO GMA, C4, CH50 #### [facility] , Lymphocytes (Bld) [#/Vol] 1.8 10*3/uL Normal 1.00-4.8 [facility] Comment on above: Performed By: #### A DNA, SJOGRENS, HELM, C3, HISAB, CCP, CHROMATIN, CENTROME, RA, CYNDI, [id number], JO1, B2 GLYPROT, ANTIR, CARDIO GMA, C4, CH50 #### [facility] , Lymphocytes/100 WBC (Bld) 18.1 % Normal . [facility] Comment on above: Performed By: #### A DNA, SJOGRENS, HELM, C3, HISAB, CCP, CHROMATIN, CENTROME, RA, CYNDI, [id number], JO1, B2 GLYPROT, ANTIR, CARDIO GMA, C4, CH50 #### [facility] , MCH (RBC) [Entitic mass] 33.1 pg Normal 24.7-34.3 [facility] Comment on above: Performed By: #### A DNA, SJOGRENS, HELM, C3, HISAB, CCP, CHROMATIN, CENTROME, RA, CYNDI, [id number], JO1, B2 GLYPROT, ANTIR, CARDIO GMA, C4, CH50 #### [facility] , MCV (RBC) [Entitic vol] 98.2 fL Normal 80-100 [facility] Comment on above: Performed By: #### A DNA, SJOGRENS, HELM, C3, HISAB, CCP, CHROMATIN, CENTROME, RA, CYNDI, [id number], JO1, B2 GLYPROT, ANTIR, CARDIO GMA, C4, CH50 #### [facility] , Mean Corpuscular HGB Conc 33.7 g/dL Normal 32.0-35.0 [facility] Comment on above: Performed By: #### A DNA, SJOGRENS, HELM, C3, HISAB, CCP, CHROMATIN, CENTROME, RA, CYNDI, [id number], JO1, B2 GLYPROT, ANTIR, CARDIO GMA, C4, CH50 #### [facility] , Monocytes (Bld) [#/Vol] 0.7 10*3/uL Normal 0.0-0.8 [facility] Comment on above: Performed By: #### A DNA, SJOGRENS, HELM, C3, HISAB, CCP, CHROMATIN, CENTROME, RA, CYNDI, [id number], JO1, B2 GLYPROT, ANTIR, CARDIO GMA, C4, CH50 #### [facility] , Monocytes/100 WBC (Bld) 6.8 % Normal . [facility] Comment on above: Performed By: #### A DNA, SJOGRENS, HELM, C3, HISAB, CCP, CHROMATIN, CENTROME, RA, CYNDI, [id number], JO1, B2 GLYPROT, ANTIR, CARDIO GMA, C4, CH50 #### [facility] , Neutrophils (Bld) [#/Vol] 7.1 10*3/uL Normal 1.8-7.7 [facility] Comment on above: Performed By: #### A DNA, SJOGRENS, HELM, C3, HISAB, CCP, CHROMATIN, CENTROME, RA, CYNDI, [id number], JO1, B2 GLYPROT, ANTIR, CARDIO GMA, C4, CH50 #### [facility] , Neutrophils/100 WBC (Bld) 72.3 % Normal . [facility] Comment on above: Performed By: #### A DNA, SJOGRENS, HELM, C3, HISAB, CCP, CHROMATIN, CENTROME, RA, CYNDI, [id number], JO1, B2 GLYPROT, ANTIR, CARDIO GMA, C4, CH50 #### [facility] , NRBC% 0.0 /100{WBC} Normal 0-0.5 [facility] Comment on above: Performed By: #### A DNA, SJOGRENS, HELM, C3, HISAB, CCP, CHROMATIN, CENTROME, RA, CYNDI, [id number], JO1, B2 GLYPROT, ANTIR, CARDIO GMA, C4, CH50 #### [facility] , Platelet mean volume (Bld) [Entitic vol] 9.6 fL Normal 6.3-10.7 [facility] Comment on above: Performed By: #### A DNA, SJOGRENS, HELM, C3, HISAB, CCP, CHROMATIN, CENTROME, RA, CYNDI, [id number], JO1, B2 GLYPROT, ANTIR, CARDIO GMA, C4, CH50 #### [facility] , Platelets (Bld) [#/Vol] 297 10*3/uL Normal 150-450 [facility] Comment on above: Performed By: #### A DNA, SJOGRENS, HELM, C3, HISAB, CCP, CHROMATIN, CENTROME, RA, CYNDI, [id number], JO1, B2 GLYPROT, ANTIR, CARDIO GMA, C4, CH50 #### [facility] , RBC (Bld) [#/Vol] 4.11 10*6/uL Normal 3.60-5.00 [facility] Comment on above: Performed By: #### A DNA, SJOGRENS, HELM, C3, HISAB, CCP, CHROMATIN, CENTROME, RA, CYNDI, [id number], JO1, B2 GLYPROT, ANTIR, CARDIO GMA, C4, CH50 #### [facility] , WBC (Bld) [#/Vol] 9.8 10*3/uL Normal 3.8-11.6 [facility] Comment on above: Performed By: #### A DNA, SJOGRENS, HELM, C3, HISAB, CCP, CHROMATIN, CENTROME, RA, CYNDI, [id number], JO1, B2 GLYPROT, ANTIR, CARDIO GMA, C4, CH50 #### [facility] , Comprehensive Metabolic Pane jak 12-12-2024 Albumin [Mass/Vol] 4.7 g/dL Normal 3.5-5.7 [facility] Comment on above: Performed By: #### A DNA, SJOGRENS, HELM, C3, HISAB, CCP, CHROMATIN, CENTROME, RA, CYNDI, [id number], JO1, B2 GLYPROT, ANTIR, CARDIO GMA, C4, CH50 #### [facility] , Albumin/Globulin [Mass ratio] 1.7 {ratio} Normal [facility] Comment on above: Performed By: #### A DNA, SJOGRENS, HELM, C3, HISAB, CCP, CHROMATIN, CENTROME, RA, CYNDI, [id number], JO1, B2 GLYPROT, ANTIR, CARDIO GMA, C4, CH50 #### [facility] , ALP [Catalytic activity/Vol] 69 U/L Normal 34-104 [facility] Comment on above: Performed By: #### A DNA, SJOGRENS, HELM, C3, HISAB, CCP, CHROMATIN, CENTROME, RA, CYNDI, [id number], JO1, B2 GLYPROT, ANTIR, CARDIO GMA, C4, CH50 #### [facility] , ALT [Catalytic activity/Vol] 20 U/L Normal 7-52 [facility] Comment on above: Performed By: #### A DNA, SJOGRENS, HELM, C3, HISAB, CCP, CHROMATIN, CENTROME, RA, CYNDI, [id number], JO1, B2 GLYPROT, ANTIR, CARDIO GMA, C4, CH50 #### [facility] , Anion gap [Moles/Vol] 13.5 mmol/L Normal 6.0-15.0 [facility] Comment on above: Performed By: #### A DNA, SJOGRENS, HELM, C3, HISAB, CCP, CHROMATIN, CENTROME, RA, CYNDI, [id number], JO1, B2 GLYPROT, ANTIR, CARDIO GMA, C4, CH50 #### [facility] , AST [Catalytic activity/Vol] 23 U/L Normal 13-39 [facility] Comment on above: Performed By: #### A DNA, SJOGRENS, HELM, C3, HISAB, CCP, CHROMATIN, CENTROME, RA, CYNDI, [id number], JO1, B2 GLYPROT, ANTIR, CARDIO GMA, C4, CH50 #### [facility] , Bilirubin [Mass/Vol] 0.3 mg/dL Normal 0.3-1.0 [facility] Comment on above: Performed By: #### A DNA, SJOGRENS, HELM, C3, HISAB, CCP, CHROMATIN, CENTROME, RA, CYNDI, [id number], JO1, B2 GLYPROT, ANTIR, CARDIO GMA, C4, CH50 #### [facility] , Calcium [Mass/Vol] 10.3 mg/dL Normal 8.6-10.3 [facility] Comment on above: Performed By: #### A DNA, SJOGRENS, HELM, C3, HISAB, CCP, CHROMATIN, CENTROME, RA, CYNDI, [id number], JO1, B2 GLYPROT, ANTIR, CARDIO GMA, C4, CH50 #### [facility] , Chloride [Moles/Vol] 103 mmol/L Normal 98-107 [facility] Comment on above: Performed By: #### A DNA, SJOGRENS, HELM, C3, HISAB, CCP, CHROMATIN, CENTROME, RA, CYNDI, [id number], JO1, B2 GLYPROT, ANTIR, CARDIO GMA, C4, CH50 #### [facility] , CO2 [Moles/Vol] 28.8 mmol/L Normal 21.0-31.0 [facility] Comment on above: Performed By: #### A DNA, SJOGRENS, HELM, C3, HISAB, CCP, CHROMATIN, CENTROME, RA, CYNDI, [id number], JO1, B2 GLYPROT, ANTIR, CARDIO GMA, C4, CH50 #### [facility] , Creatinine [Mass/Vol] 0.66 mg/dL Normal 0.60-1.20 [facility] Comment on above: Performed By: #### A DNA, SJOGRENS, HELM, C3, HISAB, CCP, CHROMATIN, CENTROME, RA, CYNDI, [id number], JO1, B2 GLYPROT, ANTIR, CARDIO GMA, C4, CH50 #### [facility] , GFR/1.73 sq M.predicted MDRD (S/P/Bld) [Vol rate/Area] mL/min/{1.73_m2} Normal [facility] Comment on above: Performed By: #### A DNA, SJOGRENS, HELM, C3, HISAB, CCP, CHROMATIN, CENTROME, RA, CYNDI, [id number], JO1, B2 GLYPROT, ANTIR, CARDIO GMA, C4, CH50 #### [facility] , Globulin (S) [Mass/Vol] 2.8 g/dL Normal [facility] Comment on above: Performed By: #### A DNA, SJOGRENS, HELM, C3, HISAB, CCP, CHROMATIN, CENTROME, RA, CYNDI, [id number], JO1, B2 GLYPROT, ANTIR, CARDIO GMA, C4, CH50 #### [facility] , Glucose [Mass/Vol] 77 mg/dL Normal 70-100 [facility] Comment on above: Result Comment: [place] Glucose Reference Range is dependent on time and content of last meal. Glucose of more than 200 mg/dL in a nonstressed, ambulatory subject supports the diagnosis of Diabetes Mellitus. ADA recommended reference range Performed By: #### A DNA, SJOGRENS, HELM, C3, HISAB, CCP, CHROMATIN, CENTROME, RA, CYNDI, [id number], JO1, B2 GLYPROT, ANTIR, CARDIO GMA, C4, CH50 #### [facility] , Potassium [Moles/Vol] 4.3 mmol/L Normal 3.5-5.1 [facility] Comment on above: Performed By: #### A DNA, SJOGRENS, HELM, C3, HISAB, CCP, CHROMATIN, CENTROME, RA, CYNDI, [id number], JO1, B2 GLYPROT, ANTIR, CARDIO GMA, C4, CH50 #### [facility] , Protein [Mass/Vol] 7.5 g/dL Normal 6.0-8.5 [facility] Comment on above: Performed By: #### A DNA, SJOGRENS, HELM, C3, HISAB, CCP, CHROMATIN, CENTROME, RA, CYNDI, [id number], JO1, B2 GLYPROT, ANTIR, CARDIO GMA, C4, CH50 #### [facility] , Sodium [Moles/Vol] 141 mmol/L Normal 136-145 [facility] Comment on above: Performed By: #### A DNA, SJOGRENS, HELM, C3, HISAB, CCP, CHROMATIN, CENTROME, RA, CYNDI, [id number], JO1, B2 GLYPROT, ANTIR, CARDIO GMA, C4, CH50 #### [facility] , Urea nitrogen [Mass/Vol] 12 mg/dL Normal 7-25 [facility] Comment on above: Performed By: #### A DNA, SJOGRENS, HELM, C3, HISAB, CCP, CHROMATIN, CENTROME, RA, CYNDI, [id number], JO1, B2 GLYPROT, ANTIR, CARDIO GMA, C4, CH50 #### [facility] , Creatine Kinaseon 12-12-2024 CK [Catalytic activity/Vol] 122 U/L Normal 30-223 [facility] Comment on above: Result Comment: PERF ORMED BY: [place] [address] [place] [address] PATHOLOGIST SCIENCE FACULTY MEMBER CARLOS KNAPP M.D. Performed By: #### A DNA, SJOGRENS, HELM, C3, HISAB, CCP, CHROMATIN, CENTROME, RA, CYNDI, [id number], JO1, B2 GLYPROT, ANTIR, CARDIO GMA, C4, CH50 #### [facility] , Creatine kinase [Enzymatic a ctivity/volume] in Serum or PlasmaOrdered By: Jacob Baker on 12-12-2024 CK [Catalytic activity/Vol] Creatine kinase [Enzymatic activity/volume] in Serum or Plasma 30-223 [facility] Creatinine [Mass/volume] in Serum or PlasmaOrdered By: Jacob Baker on 12-12-2024 Creatinine [Mass/Vol] Creatinine [Mass/volume] in Serum or Plasma 0.60-1.20 [facility] Cyclic Citrulliated Pep Abon 12-12-2024 Cyclic Citrulliated Pep Ab 7 Normal 0-19 [facility] Comment on above: Result Comment: Nega tive <20 Weak positive 20 - 39 Moderate positive 40 - 59 Strong positive >59 Performed at: [facility] [id number] [employer] Machine Operator: Santy Storey PhD, Phone: [phone] Performed By: #### A DNA, SJOGRENS, HELM, C3, HISAB, CCP, CHROMATIN, CENTROME, RA, CYNDI, [id number], JO1, B2 GLYPROT, ANTIR, CARDIO GMA, C4, CH50 #### [facility] , DNA double strand Ab [Units/ volume] in SerumOrdered By: Jacob Baker on 12-12-2024 DNA double strand Ab Qn (S) DNA double strand Ab [Units/volume] in Serum 0-9 [facility] Comment on above: Negative <5 Equivoca l 5 - 9 Positive >9 Dipstick and Microscopicon 0 12-12-2024 Appearance (U) Clear Normal Clear [facility] Comment on above: Order Comment: Name Collection Type:: Clean-Voided Midstream Performed By: #### A DNA, SJOGRENS, HELM, C3, HISAB, CCP, CHROMATIN, CENTROME, RA, CYNDI, [id number], JO1, B2 GLYPROT, ANTIR, CARDIO GMA, C4, CH50 #### [facility] , Bacteria,Urine None Seen Normal None Seen [facility] Comment on above: Order Comment: Name Collection Type:: Clean-Voided Midstream Performed By: #### A DNA, SJOGRENS, HELM, C3, HISAB, CCP, CHROMATIN, CENTROME, RA, CYNDI, [id number], JO1, B2 GLYPROT, ANTIR, CARDIO GMA, C4, CH50 #### [facility] , Bilirubin,Urine Negative Normal Negative [facility] Comment on above: Order Comment: Name Collection Type:: Clean-Voided Midstream Performed By: #### A DNA, SJOGRENS, HELM, C3, HISAB, CCP, CHROMATIN, CENTROME, RA, CYNDI, [id number], JO1, B2 GLYPROT, ANTIR, CARDIO GMA, C4, CH50 #### [facility] , Color (U) Light-Yellow Normal Yellow [facility] Comment on above: Order Comment: Name Collection Type:: Clean-Voided Midstream Performed By: #### A DNA, SJOGRENS, HELM, C3, HISAB, CCP, CHROMATIN, CENTROME, RA, CYNDI, [id number], JO1, B2 GLYPROT, ANTIR, CARDIO GMA, C4, CH50 #### [facility] , Glucose Ql (U) Normal Normal Normal [facility] Comment on above: Order Comment: Name Collection Type:: Clean-Voided Midstream Performed By: #### A DNA, SJOGRENS, HELM, C3, HISAB, CCP, CHROMATIN, CENTROME, RA, CYNDI, [id number], JO1, B2 GLYPROT, ANTIR, CARDIO GMA, C4, CH50 #### [facility] , Hyaline Casts,Urine None Normal 0-8 [facility] Comment on above: Order Comment: Name Collection Type:: Clean-Voided Midstream Performed By: #### A DNA, SJOGRENS, HELM, C3, HISAB, CCP, CHROMATIN, CENTROME, RA, CYNDI, [id number], JO1, B2 GLYPROT, ANTIR, CARDIO GMA, C4, CH50 #### [facility] , Ketones Ql (U) Negative Normal Negative [facility] Comment on above: Order Comment: Name Collection Type:: Clean-Voided Midstream Performed By: #### A DNA, SJOGRENS, HELM, C3, HISAB, CCP, CHROMATIN, CENTROME, RA, CYNID, [id number], JO1, B2 GLYPROT, ANTIR, CARDIO GMA, C4, CH50 #### [facility] , Leukocyte esterase Test strip Ql (U) Negative Normal Negative [facility] Comment on above: Order Comment: Name Collection Type:: Clean-Voided Midstream Performed By: #### A DNA, SJOGRENS, HELM, C3, HISAB, CCP, CHROMATIN, CENTROME, RA, CYNDI, [id number], JO1, B2 GLYPROT, ANTIR, CARDIO GMA, C4, CH50 #### [facility] , Mucus,Urine Rare Normal [facility] Comment on above: Order Comment: Name Collection Type:: Clean-Voided Midstream Result Comment: PERF ORMED BY: [address] [place] [address] PATHOLOGIST SCIENCE FACULTY MEMBER CARLOS KNAPP M.D. Performed By: #### A DNA, SJOGRENS, HELM, C3, HISAB, CCP, CHROMATIN, CENTROME, RA, CYNDI, [id number], JO1, B2 GLYPROT, ANTIR, CARDIO GMA, C4, CH50 #### [facility] , Nitrite,Urine Negative Normal Negative [facility] Comment on above: Order Comment: Name Collection Type:: Clean-Voided Midstream Performed By: #### A DNA, SJOGRENS, HELM, C3, HISAB, CCP, CHROMATIN, CENTROME, RA, CYNDI, [id number], JO1, B2 GLYPROT, ANTIR, CARDIO GMA, C4, CH50 #### [facility] , Occult Blood,Urine Negative Normal Negative [facility] Comment on above: Order Comment: Name Collection Type:: Clean-Voided Midstream Performed By: #### A DNA, SJOGRENS, HELM, C3, HISAB, CCP, CHROMATIN, CENTROME, RA, CYNDI, [id number], JO1, B2 GLYPROT, ANTIR, CARDIO GMA, C4, CH50 #### [facility] , pH (U) 6.5 [pH] Normal 5.0-9.0 [facility] Comment on above: Order Comment: Name Collection Type:: Clean-Voided Midstream Performed By: #### A DNA, SJOGRENS, HELM, C3, HISAB, CCP, CHROMATIN, CENTROME, RA, CYNDI, [id number], JO1, B2 GLYPROT, ANTIR, CARDIO GMA, C4, CH50 #### [facility] , Protein,Urine Negative Normal Negative [facility] Comment on above: Order Comment: Name Collection Type:: Clean-Voided Midstream Performed By: #### A DNA, SJOGRENS, HELM, C3, HISAB, CCP, CHROMATIN, CENTROME, RA, CYNDI, [id number], JO1, B2 GLYPROT, ANTIR, CARDIO GMA, C4, CH50 #### [facility] , RBC,Urine 1-2 Normal 0-4 [facility] Comment on above: Order Comment: Name Collection Type:: Clean-Voided Midstream Performed By: #### A DNA, SJOGRENS, HELM, C3, HISAB, CCP, CHROMATIN, CENTROME, RA, CYNDI, [id number], JO1, B2 GLYPROT, ANTIR, CARDIO GMA, C4, CH50 #### [facility] , Specificy Jessie,Urine 1.005 Normal 1.001-1.030 [facility] Comment on above: Order Comment: Name Collection Type:: Clean-Voided Midstream Performed By: #### A DNA, SJOGRENS, HELM, C3, HISAB, CCP, CHROMATIN, CENTROME, RA, CYNDI, [id number], JO1, B2 GLYPROT, ANTIR, CARDIO GMA, C4, CH50 #### [facility] , Squamous Epithelial Cell,Urine 1-2 Normal 0-2 [facility] Comment on above: Order Comment: Name Collection Type:: Clean-Voided Midstream Performed By: #### A DNA, SJOGRENS, HELM, C3, HISAB, CCP, CHROMATIN, CENTROME, RA, CYNDI, [id number], JO1, B2 GLYPROT, ANTIR, CARDIO GMA, C4, CH50 #### [facility] , Urobilinogen,Urine Normal Normal Normal [facility] Comment on above: Order Comment: Name Collection Type:: Clean-Voided Midstream Performed By: #### A DNA, SJOGRENS, HELM, C3, HISAB, CCP, CHROMATIN, CENTROME, RA, CYNDI, [id number], JO1, B2 GLYPROT, ANTIR, CARDIO GMA, C4, CH50 #### [facility] , WBC,Urine 1-2 Normal 0-4 [facility] Comment on above: Order Comment: Name Collection Type:: Clean-Voided Midstream Performed By: #### A DNA, SJOGRENS, HELM, C3, HISAB, CCP, CHROMATIN, CENTROME, RA, CYNDI, [id number], JO1, B2 GLYPROT, ANTIR, CARDIO GMA, C4, CH50 #### [facility] , Eosinophils Auto (Bld) [#/Vo l]Ordered By: Jacob Baker on 12-12-2024 Eosinophils (Bld) [#/Vol] Automated eosinophil count 0.0-0.45 [facility] Eosinophils/100 WBC Auto (Bl d)Ordered By: Jacob Baker on 12-12-2024 Eosinophils/100 WBC (Bld) Automated eosinophil % . [facility] Epithelial cells.squamous [# /area] in Urine sediment by Automated countOrdered By: Jacob Baker on 12-12-2024 Epithelial cells.squamous Auto (Urine sed) [#/Area] Epithelial cells.squamous [#/area] in Urine sediment by Automated count 0-2 [facility] Erythrocyte Sedimentation Ra don 12-12-2024 ESR (Bld) [Velocity] 19 mm/h Normal 0-19 [facility] Comment on above: Result Comment: PERF ORMED BY: [facility] [address] [place] [address] PATHOLOGIST SCIENCE FACULTY MEMBER CARLOS KNAPP M.D. Performed By: #### A DNA, SJOGRENS, HELM, C3, HISAB, CCP, CHROMATIN, CENTROME, RA, CYNDI, [id number], JO1, B2 GLYPROT, ANTIR, CARDIO GMA, C4, CH50 #### [facility] , Erythrocyte distribution wid th Auto (RBC) [Ratio]Ordered By: Jacob Baker on 12-12-2024 Erythrocyte distribution width (RBC) [Ratio] Erythrocyte distribution width [Ratio] by Automated count 11.9-15.3 [facility] Erythrocyte sedimentation ra te by Photometric methodOrdered By: Jacob Baker on 12-12-2024 ESR Photometric method (Bld) [Velocity] Erythrocyte sedimentation rate by Photometric method 0-19 [facility] Erythrocytes [#/area] in Uri ne sediment by Automated countOrdered By: Jacob Baker on 12-12-2024 RBC Auto (Urine sed) [#/Area] Erythrocytes [#/area] in Urine sediment by Automated count 0-4 [facility] Free T4 (Free Thyroxine)on 0 12-12-2024 Free T4 [Mass/Vol] 0.84 ng/dL Normal 0.61-1.12 [facility] Comment on above: Performed By: #### A DNA, SJOGRENS, HELM, C3, HISAB, CCP, CHROMATIN, CENTROME, RA, CYNDI, [id number], JO1, B2 GLYPROT, ANTIR, CARDIO GMA, C4, CH50 #### [facility] , Globulin Calc (S) [Mass/Vol] Ordered By: Jacob Baker on 12-12-2024 Globulin (S) [Mass/Vol] Serum globulin measurement by calculation (mass/volume) [facility] Glucose [Mass/volume] in Ser um or PlasmaOrdered By: Jacob Baker on 12-12-2024 Glucose [Mass/Vol] Glucose [Mass/volume ] in Serum or Plasma 70-100 [facility] Comment on above: ADA recommended refe [...] [Mass/volume] in Urine by Test strip Normal [facility] Hematocrit Auto (Bld) [Volum e fraction]Ordered By: Jacob Baker on 12-12-2024 Hematocrit (Bld) [Volume fraction] Hematocrit [Volume Fraction] of Blood by Automated count 34.0-46.4 [facility] Hemoglobin Test strip Ql (U) Ordered By: Jacob Baker on 12-12-2024 Hemoglobin Ql (U) Hemoglobin [Presence ] in Urine by Test strip Negative [facility] Hemoglobin [Mass/volume] in BloodOrdered By: Jacob Baker on 12-12-2024 Hemoglobin (Bld) [Mass/Vol] Hemoglobin [Mass/volume] in Blood 11.8-15.4 [facility] Histone Antibodieson 025 Histone Antibodies 1.4 High 0.0-0.9 [facility] Comment on above: Result Comment: Nega tive <1.0 Weak Positive 1.0 - 1.5 Moderate Positive 1.6 - 2.5 Strong Positive >2.5 Performed at: - [facility] [id number] [employer] Machine Operator: Anne Oro MD, Phone: [phone] Performed By: #### A DNA, SJOGRENS, HELM, C3, HISAB, CCP, CHROMATIN, CENTROME, RA, CYNDI, [id number], JO1, B2 GLYPROT, ANTIR, CARDIO GMA, C4, CH50 #### [facility] , Hyaline casts [#/area] in Ur ine sediment by Automated countOrdered By: Jacob Baker on 12-12-2024 Hyaline casts Auto (Urine sed) [#/Area] Hyaline casts [#/area] in Urine sediment by Automated count 0-8 [facility] INR in Platelet poor plasma by Coagulation assayOrdered By: Jacob Baker on 12-12-2024 INR Coag (PPP) [Relative time] INR in Platelet poor plasma by Coagulation assay [facility] Comment on above: INR Therapeutic Rang [...] Immunofixation (U) [Interp] Immunofixation for Urine . [facility] Comment on above: No monoclonality det ected.Performed at: [facility] [id number] Director: Santy Storey PhD, Phone: [phone] Immunofixation, (SYMONE), Urine on 12-12-2024 Immunofixation, (SYMONE), Urine Comment Normal . [facility] Comment on above: Result Comment: No m onoclonality detected. Performed at: [employer] [id number] [employer] Operator: Santy Storey PhD, Phone: [phone] Performed By: #### A DNA, SJOGRENS, HELM, C3, HISAB, CCP, CHROMATIN, CENTROME, RA, CYNDI, [id number], JO1, B2 GLYPROT, ANTIR, CARDIO GMA, C4, CH50 #### [facility] , Immunofixation,Serumon 12-12 Immunofixation, Serum Comment Normal . [facility] Comment on above: Result Comment: No m onoclonality detected. Performed By: #### A DNA, SJOGRENS, HELM, C3, HISAB, CCP, CHROMATIN, CENTROME, RA, CYNDI, [id number], JO1, B2 GLYPROT, ANTIR, CARDIO GMA, C4, CH50 #### [facility] , Immunoglobulin A, Serum 262 mg/dL Normal 87-352 [facility] Comment on above: Performed By: #### A DNA, SJOGRENS, HELM, C3, HISAB, CCP, CHROMATIN, CENTROME, RA, CYNDI, [id number], JO1, B2 GLYPROT, ANTIR, CARDIO GMA, C4, CH50 #### [facility] , Immunoglobulin G 935 mg/dL Normal 586-1602 [facility] Comment on above: Performed By: #### A DNA, SJOGRENS, HELM, C3, HISAB, CCP, CHROMATIN, CENTROME, RA, CYNDI, [id number], JO1, B2 GLYPROT, ANTIR, CARDIO GMA, C4, CH50 #### [facility] , Immunoglobulin M, Serum 110 mg/dL Normal 26-217 [facility] Comment on above: Result Comment: Perf ormed at: - [facility] [address] [id number] [employer] Machine Operator: Santy Storey PhD, Phone: [phone] Performed By: #### A DNA, SJOGRENS, HELM, C3, HISAB, CCP, CHROMATIN, CENTROME, RA, CYNDI, [id number], JO1, B2 GLYPROT, ANTIR, CARDIO GMA, C4, CH50 #### [facility] , ES-1 Antibodyon 12-12-2024 ES-1 Antibody <0.2 Normal 0.0-0.9 [facility] Comment on above: Performed By: #### A DNA, SJOGRENS, HELM, C3, HISAB, CCP, CHROMATIN, CENTROME, RA, CYNDI, [id number], JO1, B2 GLYPROT, ANTIR, CARDIO GMA, C4, CH50 #### [facility] , Ketones Test strip Ql (U)Ord ered By: Jacob Baker on 12-12-2024 Ketones Ql (U) Ketones [Presence] i n Urine by Test strip Negative [facility] Leukocyte esterase [Presence ] in Urine by Test stripOrdered By: Jacob Baker on 12-12-2024 Leukocyte esterase Test strip Ql (U) Leukocyte esterase [Presence] in Urine by Test strip Negative [facility] Leukocytes [#/area] in Urine sediment by Automated countOrdered By: Jacob Baker on 12-12-2024 WBC Auto (Urine sed) [#/Area] Leukocytes [#/area] in Urine sediment by Automated count 0-4 [facility] Leukocytes [#/volume] correc caitlin for nucleated erythrocytes in Blood by Automated counOrdered By: Jacob Baker on 12-12-2024 WBC corrected for nucl RBC Auto (Bld) [#/Vol] Leukocytes [#/volume] corrected for nucleated erythrocytes in Blood by Automated coun 3.8-11.6 [facility] Lupus Anticoagulant Compon 0 12-12-2024 Dilute Prothrombin Time (dPt) 28.5 Normal 0.0-47.6 [facility] Comment on above: Performed By: #### A DNA, SJOGRENS, HELM, C3, HISAB, CCP, CHROMATIN, CENTROME, RA, CYNDI, [id number], JO1, B2 GLYPROT, ANTIR, CARDIO GMA, C4, CH50 #### [facility] , dPT Confirm Ratio 1.09 Normal 0.00-1.34 [facility] Comment on above: Performed By: #### A DNA, SJOGRENS, HELM, C3, HISAB, CCP, CHROMATIN, CENTROME, RA, CYNDI, [id number], JO1, B2 GLYPROT, ANTIR, CARDIO GMA, C4, CH50 #### [facility] , DRVVT Lupus 29.9 Normal 0.0-47.0 [facility] Comment on above: Performed By: #### A DNA, SJOGRENS, HELM, C3, HISAB, CCP, CHROMATIN, CENTROME, RA, CYNDI, [id number], JO1, B2 GLYPROT, ANTIR, CARDIO GMA, C4, CH50 #### [facility] , Interpretation Comment: Normal . [facility] Comment on above: Result Comment: No l upus anticoagulant was detected. Performed at: - [facility] [id number] [employer] Machine Operator: Anne Oro MD, Phone: [phone] PERFORMED BY: [facility] [address] [place] [address] PATHOLOGIST SCIENCE FACULTY MEMBER CARLOS KNAPP M.D. Performed By: #### A DNA, SJOGRENS, HELM, C3, HISAB, CCP, CHROMATIN, CENTROME, RA, CYNDI, [id number], JO1, B2 GLYPROT, ANTIR, CARDIO GMA, C4, CH50 #### [facility] , PTT-LA 26.0 Normal 0.0-43.5 [facility] Comment on above: Performed By: #### A DNA, SJOGRENS, HELM, C3, HISAB, CCP, CHROMATIN, CENTROME, RA, CYNDI, [id number], JO1, B2 GLYPROT, ANTIR, CARDIO GMA, C4, CH50 #### [facility] , Thrombin Time 17.0 Normal 0.0-23.0 [facility] Comment on above: Performed By: #### A DNA, SJOGRENS, HELM, C3, HISAB, CCP, CHROMATIN, CENTROME, RA, CYNDI, [id number], JO1, B2 GLYPROT, ANTIR, CARDIO GMA, C4, CH50 #### [facility] , Lupus anticoagulant [Interpr etation] in Platelet poor plasmaOrdered By: Jacob Baker on 12-12-2024 Lupus anticoagulant (PPP) [Interp] Lupus anticoagulant [Interpretation] in Platelet poor plasma . [facility] Comment on above: No lupus anticoagula nt was detected.Performed at: [facility] [id number] Director: Anne Oro MD, Phone: [phone] Lymphocytes Auto (Bld) [#/Vo l]Ordered By: Jacob Baker on 12-12-2024 Lymphocytes (Bld) [#/Vol] Lymphocytes [#/volume] in Blood by Automated count 1.00-4.8 [facility] Lymphocytes/100 WBC Auto (Bl d)Ordered By: Jacob Baker on 12-12-2024 Lymphocytes/100 WBC (Bld) Lymphocytes/100 leukocytes in Blood by Automated count . [facility] MCH Auto (RBC) [Entitic mass ]Ordered By: Jacob Baker on 12-12-2024 MCH (RBC) [Entitic mass] MCH [Entitic mass] by Automated count 24.7-34.3 [facility] MCHC Auto (RBC) [Mass/Vol]Or dered By: Jacob Baker on 12-12-2024 MCHC (RBC) [Mass/Vol] MCHC [Mass/volume] by Automated count 32.0-35.0 [facility] MCV Auto (RBC) [Entitic vol] Ordered By: Jacob Baker on 12-12-2024 MCV (RBC) [Entitic vol] MCV [Entitic volume] by Automated count 80-100 [facility] Monocytes Auto (Bld) [#/Vol] Ordered By: Jacob Baker on 12-12-2024 Monocytes (Bld) [#/Vol] Automated blood monocyte count 0.0-0.8 [facility] Monocytes/100 WBC Auto (Bld) Ordered By: Jacob Baker on 12-12-2024 Monocytes/100 WBC (Bld) Automated monocyte % . [facility] Mucus [Presence] in Urine by AutomatedOrdered By: Jacob Baker on 12-12-2024 Mucus Auto Ql (U) Mucus [Presence] in Urine by Automated [facility] Myoglobinon 12-12-2024 Myoglobin [Mass/Vol] ng/mL Low 25-58 [facility] Comment on above: Result Comment: Perf ormed at: - [facility] [place] [id number] [employer] Machine Operator: Santy Storey PhD, Phone: [phone] Performed By: #### A DNA, SJOGRENS, HELM, C3, HISAB, CCP, CHROMATIN, CENTROME, RA, CYNDI, [id number], JO1, B2 GLYPROT, ANTIR, CARDIO GMA, C4, CH50 #### [facility] , Neutrophils Auto (Bld) [#/Vo l]Ordered By: Jacob Baker on 12-12-2024 Neutrophils (Bld) [#/Vol] Neutrophils [#/volume] in Blood by Automated count 1.8-7.7 [facility] Neutrophils/100 WBC Auto (Bl d)Ordered By: Jacob Baker on 12-12-2024 Neutrophils/100 WBC (Bld) Automated neutrophil % . [facility] Nitrite Test strip Ql (U)Ord ered By: Jacob Baker on 12-12-2024 Nitrite Ql (U) Nitrite [Presence] i n Urine by Test strip Negative [facility] No Panel InformationOrdered By: Jacob Baker on 12-12-2024 Estimated GFR (CKD-EPI) > 60.0 mL/Min [facility] Creatinine Clearance (Chem N/A [facility] Protein Electrophoresis M-Vincent Not observed g/dL Not Observed [facility] Protein Electrophoresis Note Comment . [facility] Comment on above: Protein electrophore sis scan will follow via computer,mail, or flower cutter delivery.Performed at: [facility] [employer] [id number] Director: Santy Storey PhD, Phone: [phone] Urine Random Prot Electrophor Note Comment . [facility] Comment on above: Protein electrophore sis scan will follow via computer,mail, or flower cutter delivery. Nucleated erythrocytes [Pres ence] in Blood by Automated countOrdered By: Jacob Baker on 12-12-2024 Nucleated RBC Auto Ql (Bld) Nucleated erythrocytes [Presence] in Blood by Automated count 0-0.5 [facility] Plasma thrombin timeOrdered By: Jacob Baker on 12-12-2024 Thrombin time Coag (PPP) [Time] TT plas 0.0-23.0 [facility] Platelet mean volume Auto (B ld) [Entitic vol]Ordered By: Jacob Baker on 12-12-2024 Platelet mean volume (Bld) [Entitic vol] Platelet mean volume [Entitic volume] in Blood by Automated count 6.3-10.7 [facility] Platelet poor plasma ratio o f lupus anticoagulant-sensitive activated partial thromboOrdered By: Jacob Baker on 12-12-2024 aPTT.lupus sensitive.excess phospholipid actual/normal Coag (PPP) [Relative time] Platelet poor plasma ratio of lupus anticoagulant-sensitive activated partial thrombo 0.0-47.6 [facility] Platelets Auto (Bld) [#/Vol] Ordered By: Jacob Baker on 12-12-2024 Platelets (Bld) [#/Vol] Platelets [#/volume] in Blood by Automated count 150-450 [facility] Potassium [Moles/volume] in Serum or PlasmaOrdered By: Jacob Baker on 12-12-2024 Potassium [Moles/Vol] Potassium [Moles/volume] in Serum or Plasma 3.5-5.1 [facility] Protein Electro, Random Urin trent 12-12-2024 Albumin, Urine 21.6 % Normal . [facility] Comment on above: Performed By: #### A DNA, SJOGRENS, HELM, C3, HISAB, CCP, CHROMATIN, CENTROME, RA, CYNDI, [id number], JO1, B2 GLYPROT, ANTIR, CARDIO GMA, C4, CH50 #### [facility] , [id number], Urine 7.6 % Normal . [facility] Comment on above: Performed By: #### A DNA, SJOGRENS, HELM, C3, HISAB, CCP, CHROMATIN, CENTROME, RA, CYNDI, [id number], JO1, B2 GLYPROT, ANTIR, CARDIO GMA, C4, CH50 #### [facility] , Fwsjp-7-Yagbfwas, Urine 12.8 % Normal . [facility] Comment on above: Performed By: #### A DNA, SJOGRENS, HELM, C3, HISAB, CCP, CHROMATIN, CENTROME, RA, CYNDI, [id number], JO1, B2 GLYPROT, ANTIR, CARDIO GMA, C4, CH50 #### [facility] , Beta Globulin, Urine 40.6 % Normal . [facility] Comment on above: Performed By: #### A DNA, SJOGRENS, HELM, C3, HISAB, CCP, CHROMATIN, CENTROME, RA, CYNDI, [id number], JO1, B2 GLYPROT, ANTIR, CARDIO GMA, C4, CH50 #### [facility] , Gamma Globulin, Urine 17.5 % Normal . [facility] Comment on above: Performed By: #### A DNA, SJOGRENS, HELM, C3, HISAB, CCP, CHROMATIN, CENTROME, RA, CYNDI, [id number], JO1, B2 GLYPROT, ANTIR, CARDIO GMA, C4, CH50 #### [facility] , M-Vincent % Not Observed Normal Not Observed [facility] Comment on above: Performed By: #### A DNA, SJOGRENS, HELM, C3, HISAB, CCP, CHROMATIN, CENTROME, RA, CYNDI, [id number], JO1, B2 GLYPROT, ANTIR, CARDIO GMA, C4, CH50 #### [facility] , Please Note: Comment Normal . [facility] Comment on above: Result Comment: Prot ein electrophoresis scan will follow via computer, mail, or flower cutter delivery. PERFORMED BY: [facility] [place] [id number] PATHOLOGIST [employer] CARLOS KNAPP M.D. Performed By: #### A DNA, SJOGRENS, HELM, C3, HISAB, CCP, CHROMATIN, CENTROME, RA, CYNDI, [id number], JO1, B2 GLYPROT, ANTIR, CARDIO GMA, C4, CH50 #### [facility] , Protein (U) [Mass/Vol] mg/dL Normal Not Estab. Th e [facility] Comment on above: Result Comment: Ve rified by repeat analysis Performed By: #### A DNA, SJOGRENS, HELM, C3, HISAB, CCP, CHROMATIN, CENTROME, RA, CYNDI, [id number], JO1, B2 GLYPROT, ANTIR, CARDIO GMA, C4, CH50 #### [facility] , Protein Electrophoresis, Ser umon 12-12-2024 Albumin [Mass/Vol] 4.1 g/dL Normal 2.9-4.4 [facility] Comment on above: Performed By: #### A DNA, SJOGRENS, HELM, C3, HISAB, CCP, CHROMATIN, CENTROME, RA, CYNDI, [id number], JO1, B2 GLYPROT, ANTIR, CARDIO GMA, C4, CH50 #### [facility] , Albumin/Globulin [Mass ratio] 1.2 {ratio} Normal 0.7-1.7 [facility] Comment on above: Performed By: #### A DNA, SJOGRENS, HELM, C3, HISAB, CCP, CHROMATIN, CENTROME, RA, CYNDI, [id number], JO1, B2 GLYPROT, ANTIR, CARDIO GMA, C4, CH50 #### [facility] , Hfnos-5-Sdquuuza 0.3 g/dL Normal 0.0-0.4 [facility] Comment on above: Performed By: #### A DNA, SJOGRENS, HELM, C3, HISAB, CCP, CHROMATIN, CENTROME, RA, CYNDI, [id number], JO1, B2 GLYPROT, ANTIR, CARDIO GMA, C4, CH50 #### [facility] , Mmtao-9-Vfbluvzt 0.9 g/dL Normal 0.4-1.0 [facility] Comment on above: Performed By: #### A DNA, SJOGRENS, HELM, C3, HISAB, CCP, CHROMATIN, CENTROME, RA, CYNDI, [id number], JO1, B2 GLYPROT, ANTIR, CARDIO GMA, C4, CH50 #### [facility] , Beta Globulin 1.2 g/dL Normal 0.7-1.3 [facility] Comment on above: Performed By: #### A DNA, SJOGRENS, HELM, C3, HISAB, CCP, CHROMATIN, CENTROME, RA, CYNDI, [id number], JO1, B2 GLYPROT, ANTIR, CARDIO GMA, C4, CH50 #### [facility] , Gamma Globulin 1.0 g/dL Normal 0.4-1.8 [facility] Comment on above: Performed By: #### A DNA, SJOGRENS, HELM, C3, HISAB, CCP, CHROMATIN, CENTROME, RA, CYNDI, [id number], JO1, B2 GLYPROT, ANTIR, CARDIO GMA, C4, CH50 #### [facility] , Globulin (S) [Mass/Vol] 3.4 g/dL Normal 2.2-3.9 [facility] Comment on above: Performed By: #### A DNA, SJOGRENS, HELM, C3, HISAB, CCP, CHROMATIN, CENTROME, RA, CYNDI, [id number], JO1, B2 GLYPROT, ANTIR, CARDIO GMA, C4, CH50 #### [facility] , M-Vincent Not Observed Normal Not Observed [facility] Comment on above: Performed By: #### A DNA, SJOGRENS, HELM, C3, HISAB, CCP, CHROMATIN, CENTROME, RA, CYNDI, [id number], JO1, B2 GLYPROT, ANTIR, CARDIO GMA, C4, CH50 #### [facility] , SPE-Note Comment Normal . [facility] Comment on above: Result Comment: Prot ein electrophoresis scan will follow via computer, mail, or flower cutter delivery. Performed at: [facility] [id number] Hot Dimpling Machine Operator: aSnty Storey PhD, Phone: [phone] Performed By: #### A DNA, SJOGRENS, HELM, C3, HISAB, CCP, CHROMATIN, CENTROME, RA, CYNDI, [id number], JO1, B2 GLYPROT, ANTIR, CARDIO GMA, C4, CH50 #### [facility] , Protein Test strip (U) [Mass /Vol]Ordered By: Jacob Baker on 12-12-2024 Protein (U) [Mass/Vol] Protein [Mass/vol ume] in Urine by Test strip Negative [facility] Protein [Mass/volume] in Ser um or PlasmaOrdered By: Jacob Baker on 12-12-2024 Protein [Mass/Vol] Protein [Mass/volume ] in Serum or Plasma 6.0-8.5 [facility] Prothrombin time (PT)Ordered By: Jacob Baker on 12-12-2024 PT Coag (PPP) [Time] Prothrombin time (PT) 9.0- 12.9 [facility] Comment on above: A hematocrit value g reater than 55% may lead to inaccurate results in coagulation testing. Patients having hematocrit values >55% require a special collection tube for coagulation studies. Please contact the laboratory at [phone] for redraw instructions. RBC Auto (Bld) [#/Vol]Ordere d By: Jacob Baker on 12-12-2024 RBC (Bld) [#/Vol] Erythrocytes [#/volu me] in Blood by Automated count 3.60-5.00 [facility] RPR w/rfx to Quant TP Abson 12-12-2024 RPR, Rfx Quant RPR Non-Reactive Normal Non Reactive [facility] Comment on above: Result Comment: Perf ormed at: - [facility] [address] [id number] Hot Dimpling Machine Operator: Santy Storey PhD, Phone: [phone] PERFORMED BY: [facility] [place] [place] [address] PATHOLOGIST SCIENCE FACULTY MEMBER CARLOS KNAPP M.D. Performed By: #### A DNA, SJOGRENS, HELM, C3, HISAB, CCP, CHROMATIN, CENTROME, RA, CYNDI, [id number], JO1, B2 GLYPROT, ANTIR, CARDIO GMA, C4, CH50 #### [facility] , Rheumatoid Factoron 12-13-19 25 Rheumatoid Factor <10.0 Normal <14.0 [facility] Comment on above: Result Comment: Perf ormed at: - [facility] [address] [id number] Hot Dimpling Machine Operator: Santy Storey PhD, Phone: [phone] Performed By: #### A DNA, SJOGRENS, EHLM, C3, HISAB, CCP, CHROMATIN, CENTROME, RA, CYNDI, [id number], JO1, B2 GLYPROT, ANTIR, CARDIO GMA, C4, CH50 #### [facility] , Ribonucleoprotein antibody a ssayOrdered By: Jacob Baker on 12-12-2024 COMMERCIAL ESTIMATOR Antibody <0.2 AI 0.0-0.9 [facility] Scl-70 antibody assayOrdered By: Jacob Baker on 12-12-2024 Scl-70 (Scleroderma) Antibody <0.2 AI 0.0-0.9 [facility] Scleroderma 70 Antibodieson 12-12-2024 Scleroderma 70 Antibodies <0.2 Normal 0.0-0.9 [facility] Comment on above: Performed By: #### A DNA, SJOGRENS, HELM, C3, HISAB, CCP, CHROMATIN, CENTROME, RA, CYNDI, [id number], JO1, B2 GLYPROT, ANTIR, CARDIO GMA, C4, CH50 #### [facility] , Screening dilute Kuldip's v iper venom time (DRVVT) with reflex to confirmatory testOrdered By: Jacob Baker on 12-12-2024 dRVVT Coag (PPP) [Time] Screening dilute Kuldip's viper venom time (DRVVT) with reflex to confirmatory test 0.0-47.0 [facility] Screening lupus anticoagulan t-sensitive activated partial thromboplastin time (aPTT)Ordered By: Jacob Baker on 12-12-2024 aPTT.lupus sensitive Coag (PPP) [Time] Screening lupus anticoagulant-sensitive activated partial thromboplastin time (aPTT) 0.0-43.5 [facility] Serum Es-1 extractable nucle ar antibody assay (units/volume)Ordered By: Jacob Baker on 12-12-2024 Es-1 extractable nuclear Ab Qn (S) Serum Es-1 extractable nuclear antibody assay (units/volume) 0.0-0.9 [facility] Serum RPR testOrdered By: Stephany Baker on 12-12-2024 Reagin Ab RPR Ql (S) Reagin Ab [Presence ] in Serum by RPR Non Reactive [facility] Comment on above: Performed at: [facility] [place] [id number] Director: Santy Storey PhD, Phone: [phone] Serum Sjogrens syndrome-A ex tractable nuclear antibody assay (units/volume)Ordered By: Jacob Baker on 12-12-2024 Sjogrens syndrome-A extractable nuclear Ab Qn (S) Serum Sjogrens syndrome-A extractable nuclear antibody assay (units/volume) 0.0-0.9 [facility] Serum Sjogrens syndrome-B ex tractable nuclear antibody assay (units/volume)Ordered By: Jacob Baker on 12-12-2024 Sjogrens syndrome-B extractable nuclear Ab Qn (S) Serum Sjogrens syndrome-B extractable nuclear antibody assay (units/volume) 0.0-0.9 [facility] Serum Helm extractable nucl ear antigen (HERIBERTO) antibody assay (units/volume)Ordered By: Jacob Baker on 12-12-2024 Helm extractable nuclear Ab Qn (S) Serum Helm extractable nuclear antigen (HERIBERTO) antibody assay (units/volume) 0.0-0.9 [facility] Serum aldolase measurementOr dered By: Jacob Baker on 12-12-2024 Aldolase 4.2 U/L Normal 3.3-10.3 [facility] Comment on above: Performed at: - [facility] [address] [id number] Director: Santy Storey PhD, Phone: [phone] Result Comment: Perf ormed at: - [facility] [address] [id number] Hot Dimpling Machine Operator: Santy Storey PhD, Phone: [phone] PERFORMED BY: [facility] [address] [place] [id number] PATHOLOGIST SCIENCE FACULTY MEMBER CARLOS KNAPP M.D. Performed By: #### A DNA, SJOGRENS, HELM, C3, HISAB, CCP, CHROMATIN, CENTROME, RA, CYNDI, [id number], JO1, B2 GLYPROT, ANTIR, CARDIO GMA, C4, CH50 #### [facility] , Serum beta 2 glycoprotein 1 IgM antibody assay (units/volume)Ordered By: Jacob Baker on 12-12-2024 Beta 2 glycoprotein 1 IgM Qn (S) Beta 2 glycoprotein 1 IgM Ab [Units/volume] in Serum 0-32 [facility] Comment on above: Result Units: GPI Ig M unitsThe reference interval reflects a 3SD or 99th percentileinterval, which is thought to represent a potentiallyclinically significant result in accordance with theInternational Consensus Statement on the classificationcriteria for definitive antiphospholipid syndrome (APS). JThromb Haem 2006;4:295-306.Performed at: - [facility] [id number] Director: Santy Storey PhD, Phone: [phone] Serum cardiolipin IgA antibo dy assay by immunoassay (units/volume)Ordered By: Jacob Baker on 12-12-2024 Cardiolipin IgA IA Qn (S) Cardiolipin IgA Ab [Units/volume] in Serum by Immunoassay 0-11 [facility] Comment on above: Negative: <12 Indete rminate: 12 - 20 Low-Med Positive: >20 - 80 High Positive: >80 Serum cardiolipin IgG antibo dy assay by immunoassay (units/volume)Ordered By: Jacob Baker on 12-12-2024 Cardiolipin IgG IA Qn (S) Cardiolipin IgG Ab [Units/volume] in Serum by Immunoassay 0-14 [facility] Comment on above: Negative: <15 Indete rminate: 15 - 20 Low-Med Positive: >20 - 80 High Positive: >80 Serum cardiolipin IgM antibo dy assay by immunoassay (units/volume)Ordered By: Jacob Baker on 12-12-2024 Cardiolipin IgM IA Qn (S) Cardiolipin IgM Ab [Units/volume] in Serum by Immunoassay 0-12 [facility] Comment on above: Negative: <13 Indete rminate: 13 - 20 Low-Med Positive: >20 - 80 High Positive: >80 Serum centromere protein B a ntibody assay (units/volume)Ordered By: Jacob Baker on 12-12-2024 Centromere protein B Ab Qn (S) Serum centromere protein B antibody assay (units/volume) 0.0-0.9 [facility] Comment on above: Performed at: [address] [id number] Director: Santy Storey PhD, Phone: [phone] Serum globulin measurement ( mass/volume)Ordered By: Jacob Baker on 12-12-2024 Globulin (S) [Mass/Vol] Serum globulin measurement (mass/volume) 2.2-3.9 [facility] Serum histone IgG antibody a ssay by immunoassay (units/volume)Ordered By: Jacob Baker on 12-12-2024 Histone IgG IA Qn (S) Serum histone IgG antibody assay by immunoassay (units/volume) High 0.0-0.9 [facility] Comment on above: Negative <1.0 Weak P ositive 1.0 - 1.5 Moderate Positive 1.6 - 2.5 Strong Positive >2.5Performed at: - [facility] [id number] Director: Anne Oro MD, Phone: [phone] Serum immunofixation electro phoresisOrdered By: Jacob Baker on 12-12-2024 Serum Immunofixation Comment . [place] Comment on above: No monoclonality det ected. Serum nuclear antibody titer Ordered By: Jacob Baker on 12-12-2024 Nuclear Ab (S) [Titer] Serum nuclear ant ibody titer . [facility] Comment on above: Negative <1:80 Borde rline 1:80 Positive >1:80ICAP nomenclature: [id number] more information about Hep-2 cell patterns useANApatterns.org, the official website for theInternational Consensus on Antinuclear Antibody (CYNDI)Patterns (ICAP).Performed at: Exec [facility] [address] [id number] Director: Santy Storey PhD, Phone: [phone] Serum or plasma IgA measurem ent (mass/volume)Ordered By: Jacob Baker on 12-12-2024 IgA [Mass/Vol] IgA [Mass/volume] in Serum or Plasma 87-352 [facility] Serum or plasma IgG measurem ent (mass/volume)Ordered By: Jacob Baker on 12-12-2024 IgG [Mass/Vol] IgG [Mass/volume] in Serum or Plasma [phone] [facility] Serum or plasma IgM measurem ent (mass/volume)Ordered By: Jacob Baker on 12-12-2024 IgM [Mass/Vol] IgM [Mass/volume] in Serum or Plasma 26-217 [facility] Comment on above: Performed at: [facility] [address] [id number] Director: Santy Storey PhD, Phone: [phone] Serum or plasma albumin audie urement (mass/volume)Ordered By: Jacob Baker on 12-12-2024 Albumin [Mass/Vol] Albumin [Mass/volume ] in Serum or Plasma 2.9-4.4 [facility] Serum or plasma albumin/glob ulin mass ratioOrdered By: Jacob Baker on 12-12-2024 Albumin/Globulin [Mass ratio] Serum or plasma albumin/globulin mass ratio 0.7-1.7 [facility] Serum or plasma alpha 1 glob ulin measurement by electrophoresis (mass/volume)Ordered By: Jacob Baker on 12-12-2024 Alpha 1 globulin Elph [Mass/Vol] Serum or plasma alpha 1 globulin measurement by electrophoresis (mass/volume) 0.0-0.4 [facility] Serum or plasma alpha 2 glob ulin measurement by electrophoresis (mass/volume)Ordered By: Jacob Baker on 12-12-2024 Alpha 2 globulin Elph [Mass/Vol] Serum or plasma alpha 2 globulin measurement by electrophoresis (mass/volume) 0.4-1.0 [facility] Serum or plasma anion gap de terminationOrdered By: Jacob Baker on 12-12-2024 Anion gap [Moles/Vol] Serum or plasma an ion gap determination 6.0-15.0 [facility] Serum or plasma beta globuli n measurement by electrophoresis (mass/volume)Ordered By: Jacob Baker on 12-12-2024 Beta globulin Elph [Mass/Vol] Serum or plasma beta globulin measurement by electrophoresis (mass/volume) 0.7-1.3 [facility] Serum or plasma chromatin an tibody assay (units/volume)Ordered By: Jacob Baker on 12-12-2024 Chromatin Ab Qn Serum or plasma chromatin antibody assay (units/volume) 0.0-0.9 [facility] Serum or plasma complement C 3 measurement (mass/volume)Ordered By: Jacob Baker on 12-12-2024 Complement C3 [Mass/Vol] Serum or plasma complement C3 measurement (mass/volume) 82-167 [facility] Serum or plasma complement C 4 measurement (mass/volume)Ordered By: Jacob Baker on 12-12-2024 Complement C4 [Mass/Vol] Serum or plasma complement C4 measurement (mass/volume) 12-38 [facility] Serum or plasma cyclic adeno sine monophosphate measurement (moles/volume)Ordered By: Jacob Baker on 12-12-2024 Adenosine monophosphate.cyclic [Moles/Vol] Serum or plasma cyclic adenosine monophosphate measurement (moles/volume) 0-19 [facility] Comment on above: Negative <20 Weak po sitive 20 - 39 Moderate positive 40 - 59 Strong positive >59Performed at: CB - [facility] [address], [place], [place] [id number] Director: Santy Storey PhD, Phone: [phone] Serum or plasma gamma globul in measurement by electrophoresis (mass/volume)Ordered By: Jacob Baker on 12-12-2024 Gamma globulin Elph [Mass/Vol] Serum or plasma gamma globulin measurement by electrophoresis (mass/volume) 0.4-1.8 [facility] Serum or plasma myoglobin me asurement (mass/volume)Ordered By: Jacob Baker on 12-12-2024 Myoglobin [Mass/Vol] Serum or plasma myoglobin measurement (mass/volume) Low 25-58 [facility] Comment on above: Performed at: [facility] [address] [place] [id number] Director: Santy Storey PhD, Phone: [phone] Serum or plasma rheumatoid f actor measurement (units/volume)Ordered By: Jacob Baker on 12-12-2024 Rheumatoid factor Qn Serum or plasma rheumatoid factor measurement (units/volume) <14.0 [facility] Comment on above: Performed at: [facility] [address] [id number] Director: Santy Storey PhD, Phone: [phone] Sjogrens Anti-SSA/SSBon 11-14 SS-A/Ro Sjogrens Antibody <0.2 Normal 0.0-0.9 [facility] Comment on above: Performed By: #### A DNA, SJOGRENS, HELM, C3, HISAB, CCP, CHROMATIN, CENTROME, RA, CYNDI, [id number], JO1, B2 GLYPROT, ANTIR, CARDIO GMA, C4, CH50 #### [facility] , SS-B/La Sjogrens Antibody <0.2 Normal 0.0-0.9 [facility] Comment on above: Performed By: #### A DNA, SJOGRENS, HELM, C3, HISAB, CCP, CHROMATIN, CENTROME, RA, CYNDI, [id number], JO1, B2 GLYPROT, ANTIR, CARDIO GMA, C4, CH50 #### [facility] , Sodium [Moles/volume] in Ser um or PlasmaOrdered By: Jacob Baker on 12-12-2024 Sodium [Moles/Vol] Sodium [Moles/volume ] in Serum or Plasma 136-145 [facility] Specific gravity Test strip (U) [Rel density]Ordered By: Jacob Baker on 12-12-2024 Specific gravity (U) [Rel density] Specific gravity of Urine by Test strip 1.001-1.030 [facility] Thyroid Stimulating Hormoneo n 12-12-2024 TSH Qn 0.91 m[IU]/L Normal 0.45-5.33 [facility] Comment on above: Result Comment: PERF ORMED BY: [facility] [address] [place] [address] PATHOLOGIST SCIENCE FACULTY MEMBER CARLOS KNAPP M.D. Performed By: #### A DNA, SJOGRENS, HELM, C3, HISAB, CCP, CHROMATIN, CENTROME, RA, CYNDI, [id number], JO1, B2 GLYPROT, ANTIR, CARDIO GMA, C4, CH50 #### [facility] , Thyrotropin [Units/volume] i n Serum or PlasmaOrdered By: Jacob Baker on 12-12-2024 TSH Qn Thyrotropin [Units/volume] in Serum or Plasma 0.45-5.33 [facility] Thyroxine (T4) free [Mass/vo lume] in Serum or PlasmaOrdered By: Jacob Baker on 12-12-2024 Free T4 [Mass/Vol] Thyroxine (T4) free [Mass/volume] in Serum or Plasma 0.61-1.12 [facility] Total hemolytic complement C H50 assayOrdered By: Jacob Baker on 12-12-2024 Total Complement (CH50) >60 U/mL >41 [facility] Comment on above: Age Male Female [...] to determine out of range values.Performed at: [facility] [id number] Director: Santy Storey PhD, Phone: [phone] Urea nitrogen [Mass/volume] in Serum or PlasmaOrdered By: Jacob Baker on 12-12-2024 Urea nitrogen [Mass/Vol] Urea nitrogen [Mass/volume] in Serum or Plasma 04-07 [facility] Urine alpha 1 globulin/total protein by electrophoresisOrdered By: Jacob Baker on 12-12-2024 Alpha 1 globulin Elph (U) [Mass fraction] Urine alpha 1 globulin/total protein by electrophoresis . [facility] Urine alpha 2 globulin/total protein ratio by electrophoresisOrdered By: Jacob Baker on 12-12-2024 Alpha 2 globulin Elph (U) [Mass fraction] Urine alpha 2 globulin/total protein ratio by electrophoresis . [facility] Urine beta globulin measurem ent by electrophoresis (mass/volume)Ordered By: Jacob Baker on 12-12-2024 Beta globulin Elph (U) [Mass/Vol] Urine beta globulin measurement by electrophoresis (mass/volume) . [facility] Urine protein measurement (m ass/volume)Ordered By: Jacob Baker on 12-12-2024 Protein (U) [Mass/Vol] Protein [Mass/vol ume] in Urine Not Estab. [facility] Comment on above: Verified by repeat analysis Urobilinogen Test strip (U) [Mass/Vol]Ordered By: Jacob Baker on 12-12-2024 Urobilinogen (U) [Mass/Vol] Urobilinogen [Mass/volume] in Urine by Test strip Normal [facility] WBC Auto (Bld) [#/Vol]Ordere d By: Jacob Baker on 12-12-2024 WBC (Bld) [#/Vol] Leukocytes [#/volume ] in Blood by Automated count 3.8-11.6 [facility] aPTT in Platelet poor plasma by Coagulation assayOrdered By: Jacob Baker on 12-12-2024 aPTT Coag (PPP) [Time] Activated partial thromboplastin time (aPTT) in platelet poor plasma by coagulation a 25.1-36.5 [facility] Comment on above: A hematocrit value g reater than 55% may lead to inaccurate results in coagulation testing. Patients having hematocrit values >55% require a special collection tube for coagulation studies. Please contact the laboratory at [phone] for redraw instructions. aPTT.lupus sensitive/aPTT.babs pus sensitive W excess phospholipid (screen to confirm raOrdered By: Jacob Baker on 12-12-2024 aPTT.lupus sensitive/aPTT.lupus sensitive W excess phospholipid Coag (PPP) [Ratio] aPTT.lupus sensitive/aPTT.lupus sensitive W excess phospholipid (screen to confirm ra 0.00-1.34 [facility] pH Test strip (U)Ordered By: Jacob Baker on 12-12-2024 pH (U) pH of Urine by Test strip 5.0-9.0 [facility] US Abdomen, Limitedon 2024 US Abdomen, [...] MD Transcribed by: MARCO Technologist: KELLY Walters [facility] Main OR Intraoperative Recor don 11-28-2024 Main OR Intraoperative Record Main OR Intraoperative Record IntraOp Document Type FTPM Summary Primary Physician: Babar Mayers DO Finalized Date/Time: 11/28/24 10:21:25 Pt. Name: SHAZIA CHOU Isreal Montgomery/Sex: 1990 Female Med Rec #: [id number] Physician: Babar Mayers DO Financial #: [id number] Pt. Type: P Room/Bed: / Admit/Disch: 11/28/24 [...] Nolvia Lehman Role Performed Surgeon - Primary Forensic Psychiatrist - Primary Scrub - Primary Time In 11/28/24 10:16:00 11/28/24 10:16:00 11/28/24 10:16:00 Time Out 11/28/24 10:22:00 11/28/24 10:22:00 11/28/24 10:22:00 Procedure TRANSFORAMINAL EPIDURAL TRANSFORAMINAL EPIDURAL TRANSFORAMINAL EPIDURAL STEROID INJECTIO(Left) STEROID INJECTIO(Left) STEROID INJECTIO(Left) Comments Last Modified By: Markos ROLLE, Lulu Burrows RN, Lulu Mercer RN 11/28/24 10:21:12 11/28/24 10:21:12 11/28/24 10:21:12 Entry 4 Case Attendee Sofy Mix Role Performed [employer]usement [employer] Manager Time In 11/28/24 10:16:00 Time Out [...] and tissue Entry 1 Skin Integrity Intact, [place], Warm, & Skin Abnormality No Dry Outcomes [...] Large Under (more content not included)... Normal [facility] Main OR Preoperative Recordo n 11-28-2024 Main OR Preoperative Record Main OR Preoperative Record Holding Area Document Type FTPM Summary Primary Physician: Babar Mayers DO Finalized Date/Time: 11/28/24 09:16:26 Pt. Name: JOSÉ ANTONIO SHAZIADION Edwards./Sex: 1990 Female Med Rec #: [id number] Physician: Babar Mayers DO Financial #: [id number] Pt. Type: P Room/Bed: / Admit/Disch: 11/28/24 [...] 09:04 Gabrielle Sultana RN 11/28/24 09:16 Normal [facility] MRI Spine Lumbar w/o Contras [...] MD Transcribed by: MARCO Technologist: MANDI Normal [facility] Nonvisit Note - PTon 025 Nonvisit Note - PT Nonvisit Note - PT -per and her insurance will not cover. Normal [facility] Nonvisit Note - PTon 025 Nonvisit Note - PT Nonvisit Note - PT Shazia called to cancel her remaining appointments. She said per request of her doctor and insurance will not cover it Normal [facility] Nonvisit Note - PTon 025 Nonvisit Note - PT Nonvisit Note - PT - pt is having issues with her insurance and wants to figure it out first Normal [facility] XR Spine Lumbosacral Minimum 4 Viewson [...] by: Francisco Pena Transcribed by: MARCO Technologist: [facility] XR Femur Min 2 Views Lefton 11-02-2024 [...] SignJulio pelayo MD Transcribed by: MARCO Technologist: [facility] Nonvisit Note - PTon 025 Nonvisit Note - PT Nonvisit Note - PT Chart reviewed with eval prepped for scheduled eval. KK Normal [facility] ED Clinical Summaryon 2024 ED Clinical Summary ED Clinical Summary [address] [address] ED Clinical Summary Person Information Name: SHAZIA CHOU [place] Age: 33 Years : 1990 Sex: Female Language: Salvadorean PCP: KURT BALBUENA CNP Marital Status: Visit [...] 10/18/2024 08:40:02 10/18/2024 08:40:02 10/18/2024 08:40:02 ADDRESS: [address] [place] [phone] PHYS DOC NOTES: MEDICAL INFORMATION: Prescriptions Given: New Medications [id number], [address], [place] [id number], [phone] methocarbamol (Robaxin-750 oral tablet) 2 Tablets By [...] up: With: Address: When: KURT BALBUENA [address], [place] [id number] Business (1) In 3 days 10/21/2024 DIAGNOSIS: Chronic pain Normal [facility] ED Note-Physicianon 10-18-19 ED Note-Physician ED [...] day(s), # 18 tab(s), Refills(s) 0, Pharmacy: [id number], 170, cm, 10/18/24 8:12:00 EST, Height/Length Dosing, 90, kg, 10/18/24 8:12:00 EST, Weight Dosing predniSONE, 60 mg = 3 tab(s), Oral, Daily, X 7 day(s), # 21 tab(s), Refills(s) 0, Pharmacy: [facility]/pharmacy #[id number], 170, cm, 10/18/24 [...] KURT BALBUENA In 3 days 10/21/[address] [place] [phone] Business (1) Additional Instructions: Patient Education [...] made to ensure accuracy, however, inadvertently computerized pipe line repairer mistakes may be present. Appropriate healthcare PPE [...] Procedure/Surgical H (more content not included)... Normal [facility] Comment on above: Result Comment: Elec tronically Signed By: Beto Shea PA-C\.br\Date and Time Signed: 10/18/24 09:04 EST\.br\Electronically Co-Signed By: Jose Correia M.D.\.br\Date and Time Co-Signed: 10/18/24 09:07 EST ED Patient Summaryon 025 ED Patient Summary ED Patient Summary [place] [id number] Patient Discharge Instructions Person Information Name: SHAZIA CHOU Age: 33 Years Arrival Date: 10/18/2024 08:04:01 Discharge Diagnosis: Chronic pain Primary Care Physician: KURT BALBUENA CNP Provider Information Primary Provider: Jose Correia M.D. Advanced Car Filler:Beto Shea PA-C The exam and treatment you received in the Emergency Department were for an urgent problem and are not intended as complete care. It is important that you follow up with a doctor, nurse practitioner, or physician???s hospital clinic assistant for ongoing care. If your symptoms become worse or you do not improve as expected and you are unable to reach your usual health care provider, you should return to the Emergency Department. We are available 24 hours a day. JOSÉ ANTONIOLINDASHAZIA Isreal has been given the following list of patient education materials, prescriptions and follow-up instructions: Follow-up Instructions: With: Address: When: KURT BALBUENA [address] [place] [address] [phone] Business (1) In 3 days 10/21/2024 In the event that this physician does not participate in your insurance network, please consult with your insurance company to find a nearby participating provider. Patient Education Materials: Chronic Pain, Adult A MESSAGE TO ALL PATIENTS REGARDING OPIOIDS PRESCRIPTION OPIOIDS: WHAT YOU NEED TO KNOW Prescription opioids can be used to help relieve einwfvhe-qp-shslne pain and are often prescribed following a [...] care professio (more content not included)... Normal [facility] Ambulatory Visit Summaryon 0 10-14-2024 Ambulatory Visit Summary Ambulatory Visit Summary JOSÉ ANTONIOLINDASHAZIA L :1990 Visit Date:10/14/2024 Ambulatory Visit Instructions Your [...] AM EST With: KURT BALBUENA CNP Where: [place] [phone]- Medications What How Much When Why Instructions [...] choosing us for your care. Normal [facility] Family Medicine Office/Clini c Noteon 10-14-2024 Family Medicine Office/Clinic Note Family Medicine Office/Clinic Note Chief Complaint Pain follow up HPI Staff Pt presents today for 2wk follow up to chronic pain. Treated w/gabapentin 100mg. Pt denies relief from pain with med. Brain MRI? Has not scheduled yet due to rescheduling on pt's end. Rheumatoid factor ordered last encounter. NEG (done @ [facility]) Referred to [facility]. Did see, but waiting for MRI brain results. PHQ9: 14 Does see psychiatrist. Concerned she may have Raynaud's. Would like referral rt client services specialist. History of Present Illness 33 year old [...] to rheumatology as the MD at [facility] suggested she may have Raynaud's phenomenon. Patient [...] TID, # 90 cap(s), Refills(s) 0, Pharmacy: [facility]/pharmacy #[id number], 170, cm, 10/14/24 9:02:00 EST, Height/Length Dosing, 90.2, kg, 10/14/24 9:02:00 EST, Weight Dosing 2. Raynaud phenomenon (I73.00: Raynaud's syndrome without gangrene) Ordered: [facility] External Ambulatory Referral 3. Alcohol abuse, uncomplicated [...] With When Contact Information KURT BALBUENA CNP, IGGY Within [address] [place] [phone] Business (1) Additional Instructions: Chronic pain syndrome Patient Education Binge-Drinking Information, Adult Problem List/Past Medical History Ongoing Alcohol abuse, uncomplicated Bipolar disorder BMI 31.0-31.9,adult Borderline personality disorder Chronic pain syndrome History of bypass of stomach Hypertension Iron deficiency anemia Left breast mass Muscle weakness-general Obesity (BMI 30-39.9) Overweight (BMI 25.0 (more content not included)... Normal [facility] Comment on above: Result Comment: Elec [...] . Pt is currently using Naltrexone. 06/09/2023 [facility] ED Note: HPI- The patient states that [...] drug abuse. This was an error. 09/16/2024 [facility] Records (page 11): Office Visit [...] feel free to contact me at extension [phone]. Lina Chirinos LPN Clinical Highway Maintenance Technician [place] [address] Extension: [phone] [email or web address] From: KURT BALBUENA CNP To: Lina Chirinos; [...] with counseling f/u in 4-6 weeks Normal [facility] Ambulatory Visit Summaryon 0 09-30-2024 Ambulatory [...] EST With: KURT BALBUENA CNP Where: [address] [phone]- Medications What How Much When Why Instructions New gabapentin (gabapentin 100 mg Cap) 1 Capsules By Mouth 3 times a day Chronic pain syndrome Pickup at [facility]/pharmacy #[id number] Unchanged acetaminophen (Tylenol) [...] Once a day (at bedtime) Pharmacy Information [facility]/pharmacy #[id number]: [address], [place] [phone] Allergies Abilify (suicidal) BuSpar (palpitations) Coconut Oil [...] for choosing us for your care. Normal [facility] Family Medicine Office/Clini c Noteon 09-30-2024 [...] her previous pcp in July, to the [facility] ED on 09/05/2024 and again on 09/11/2024. She was seen by a provider at [facility] on 09/05/2024 and additional laboratory [...] syndrome) Reviewed notes and laboratory results from [facility] Awaiting results from the Rheumatoid factor & [facility] Awaiting consult information form [facility] MRI scheduled for Thursday f/u in 2 weeks Ordered: gabapentin, 100 mg = 1 cap(s), Oral, TID, # 90 cap(s), Refills(s) 0, Pharmacy: [facility]/pharmacy #[id number], 170, cm, 09/30/24 [...] Tab gabapen (more content not included)... Normal [facility] Comment on above: Result Comment: Elec tronically Signed By: KURT BALBUENA CNP\mayelin\Date and Time Signed: 09/30/24 10:29 EST Vit Aon 09-29-2024 Retinol [Mass/Vol] 68.4 microgram/dL High 18.9-57.3 [facility] Comment on above: Result Comment: Refe [...] the Food and Drug Administration. Performed at: Lab[address] [id number] MD Shorty Rodríguez Performed By: #### 1 [id number] ####[facility] [address] [place] [address] EMG 2 Extremitieson 09-27-19 Normal EMG of the ft upper and lower extremity [facility] Family Medicine Office/Clini c Noteon 09-27-2024 Family Medicine Office/Clinic Note Family Medicine Office/Clinic Note [facility] Staff Shazia is a 33 year old [...] she has an appointment today at [facility] for an EMG. She is not sure [...] virus vaccine, inactivated 07/09/2020 Recorded Normal [facility] Comment on above: Result Comment: Elec tronically Signed By: KURT BALBUENA CNP\.benito\Date and Time Signed: 09/27/24 12:39 EST NVC 11-12 Nerveson 5 Normal EMG of the le ft upper and lower extremity [facility] ALL MYOGLOBINon 09-21-2024 Myoglobin [Mass/Vol] 33 ng/mL 9 - 82 ng/mL NO [facility] ALL THYROID STIM HORMONEon 0 09-21-2024 TSH Qn 1.268 m[IU]/L [facility] No Panel Informationon 09-21 [facility] Ambulatory Visit Summaryon 0 09-20-2024 Ambulatory [...] for choosing us for your care. Normal [facility] CHEMISTRYOrdered By: SYSTEM SYSTEM on 09-20-2024 [...] for a full Vitamin panel. ER visit [facility] - malnutrition Gave magnesium pill 1 [...] the ED. She reports she went to [facility] and it was recommended that she be [...] Folate Level Iron Level Lab Specimen Collect [id number] Magnesium Level TIBC Calculated Vitamin A Level [...] fasciotomy (06/02/ (more content not included)... Normal [facility] Comment on above: Result Comment: Elec tronically Signed By: ESHA BONILLA, KURT Lehman\mayelin\Date and Time Signed: 09/20/24 11:15 EST Ferritinon 09-20-2024 Ferritin [Mass/Vol] 10 ng/mL Low 11-307 [facility] Comment on above: Performed By: #### 2 [id number] #### [facility] Laboratory [address] [place] [address] Folateon 09-20-2024 Folate [Mass/Vol] ng/mL Normal >=6.7 [facility] Comment on above: Performed By: #### 2 [id number] #### [facility] [address] [place] [address] Ironon 09-20-2024 Iron [Mass/Vol] 124 microgram/dL Normal 35-153 [facility] Comment on above: Performed By: #### 2 [id number] #### [facility] [address] [place] [address] Magnesiumon 09-20-2024 Magnesium [Mass/Vol] 2.2 mg/dL Normal 1.3-2.4 [facility] Comment on above: Performed By: #### 2 [id number] #### [facility] [address] [place] [address] TIBC Calculatedon 09-20-2024 Iron binding capacity [Mass/Vol] 455 microgram/dL High 250-400 [facility] Comment on above: Performed By: #### 1 [id number] #### [facility] [address] [place] [address] Transferrin [Mass/Vol] 325 mg/dL Normal 200-370 [facility] Comment on above: Performed By: #### 1 [id number] #### [facility] [address] [place] [address] Vit B12on 09-20-2024 Cobalamin (Vitamin B12) [Mass/Vol] 626 pg/mL Normal 50-1500 [facility] Comment on above: Performed By: #### 2 [id number] #### [facility] [address] [place] [address] Vitamin D 25 Hydroxyon 09-20 25-hydroxyvitamin D3 [Mass/Vol] 43.7 ng/mL Normal 30.0-100.0 [facility] Comment on above: Performed By: #### 5 [id number] #### [facility] [address] [place] [address] Alanine aminotransferase [En zymatic activity/volume] in Serum or PlasmaOrdered By: Sailaja Anderson on 09-15-2024 ALT [Catalytic activity/Vol] Alanine aminotransferase [Enzymatic activity/volume] in Serum or Plasma 7-52 [facility] Albumin [Mass/volume] in Ser um or Plasma by Bromocresol green (BCG) dye binding methoOrdered By: Sailaja Anderson on 09-15-2024 Albumin BCG dye [Mass/Vol] Albumin [Mass/volume] in Serum or Plasma by Bromocresol green (BCG) dye binding metho 3.5-5.7 [facility] Alkaline phosphatase [Enzyma tic activity/volume] in Serum or PlasmaOrdered By: Sailaja Anderson on 09-15-2024 ALP [Catalytic activity/Vol] Alkaline phosphatase [Enzymatic activity/volume] in Serum or Plasma 34-104 [facility] Amphetamine Screen Ql (U)Ord ered By: Sailaja Anderson on 09-15-2024 Amphetamines Ql (U) Amphetamines screen Negativ e [facility] Appearance of UrineOrdered B y: Sailaja Anderson on 09-15-2024 Appearance (U) Urine appearance Clear [place] Aspartate aminotransferase [ Enzymatic activity/volume] in Serum or PlasmaOrdered By: Sailaja Anderson on 09-15-2024 AST [Catalytic activity/Vol] Aspartate aminotransferase [Enzymatic activity/volume] in Serum or Plasma 13-39 [facility] Bacteria [Presence] in Urine by AutomatedOrdered By: Sailaja Anderson on 09-15-2024 Bacteria Auto Ql (U) Bacteria [Presence] in Urine by Automated None Seen [facility] Barbiturates [Presence] in U rine by Screen methodOrdered By: Sailaja Anderson on 09-15-2024 Barbiturates Screen Ql (U) Barbiturates [Presence] in Urine by Screen method Negative [facility] Basophils Auto (Bld) [#/Vol] Ordered By: Sailaja Anderson on 09-15-2024 Basophils (Bld) [#/Vol] Automated basophil count 0.0-0.2 [facility] Basophils/100 WBC Auto (Bld) Ordered By: Sailaja Anderson on 09-15-2024 Basophils/100 WBC (Bld) Automated basophil % . [facility] Benzodiazepines Screen Ql (U )Ordered By: Sailaja Anderson on 09-15-2024 Benzodiazepines Ql (U) Benzodiazepines [Presence] in Urine by Screen method Negative [facility] Benzoylecgonine [Presence] i n Urine by Screen methodOrdered By: Sailaja Anderson on 09-15-2024 Benzoylecgonine Screen Ql (U) Benzoylecgonine [Presence] in Urine by Screen method Negative [facility] Bilirubin Test strip Ql (U)O rdered By: Sailaja Anderson on 09-15-2024 Bilirubin Ql (U) Bilirubin.total [Presence] in Urine by Test strip Negative [facility] Bilirubin.total [Mass/volume ] in Serum or PlasmaOrdered By: Sailaja Anderson on 09-15-2024 Bilirubin [Mass/Vol] Bilirubin.total [Mass/volume] in Serum or Plasma 0.3-1.[address] [facility] [address] angio headon 09-15-2024 CT angio head [facility] [place] [address] CT Scan Report Signed Patient: Shazia Chou MR#: [id number] : 1990 Acct:[id number] Age/Sex: 33 / F ADM Date: 09/15/24 Loc: ER Room: Type: [facility] ER Attending Dr: Copies to: Sailaja Anderson APRN Ordering Provider: Sailaja Anderson APRN Date of Service: 09/15/24 CT/CT angio head: weakness ([id number]) CT/CT angio neck: weakness ([id number]) CT/CT head/brain wo con: weakness CT head/brain [...] Wiley Shetty M.D.09/15/2024 3:56 PM Dictation Location: [place] [address] Transcribed By: MARKY 09/15/24 1556 Dictated By: Wiley Shetty II, MD 09/15/24 1546 Signed By: 09/15/24 155 Normal [facility] Calcium [Mass/volume] in Ser um or PlasmaOrdered By: Sailaja Anderson on 09-15-2024 Calcium [Mass/Vol] Calcium [Mass/volume ] in Serum or Plasma 8.6-10.3 [facility] Cannabinoids [Presence] in U rine by Screen methodOrdered By: Sailaaj Anderson on 09-15-2024 Cannabinoids Screen Ql (U) Cannabinoids [Presence] in Urine by Screen method Negative [facility] Comment on above: These are unconfirme [...] l [Moles/volume] in Serum or Plasma 21.0-31.0 [facility] Chloride [Moles/volume] in S tushar or PlasmaOrdered By: Sailaja Anderson on 09-15-2024 Chloride [Moles/Vol] Chloride [Moles/vol ume] in Serum or Plasma 98-107 [facility] Color Auto (U)Ordered By: Leilani Anderson on 09-15-2024 Color (U) Color of Urine by Auto Yellow [facility] Complete Blood Count Auto Di ffon 09-15-2024 Basophils (Bld) [#/Vol] 0.1 10*3/uL Normal 0.0-0.2 [facility] Comment on above: Result Comment: PERF ORMED BY: [facility] [address] [place] [address] PATHOLOGIST SCIENCE FACULTY MEMBER MOHAMED M EL-FAKHARANY M.D. Performed By: #### A DNA, SJOGRENS, HELM, C3, HISAB, CCP, CHROMATIN, CENTROME, RA, [facility], [id number], JO1, B2 GLYPROT, ANTIR, CARDIO GMA, C4, CH50 #### [facility] , Basophils/100 WBC (Bld) 0.7 % Normal . [facility] Comment on above: Performed By: #### A DNA, SJOGRENS, HELM, C3, HISAB, CCP, CHROMATIN, CENTROME, RA, [facility], [id number], JO1, B2 GLYPROT, ANTIR, CARDIO GMA, C4, CH50 #### [facility] , Eosinophils (Bld) [#/Vol] 0.2 10*3/uL Normal 0.0-0.45 [facility] Comment on above: Performed By: #### A DNA, SJOGRENS, HELM, C3, HISAB, CCP, CHROMATIN, CENTROME, RA, [facility], [id number], JO1, B2 GLYPROT, ANTIR, CARDIO GMA, C4, CH50 #### [facility] , Eosinophils/100 WBC (Bld) 2.4 % Normal . [facility] Comment on above: Performed By: #### A DNA, SJOGRENS, HELM, C3, HISAB, CCP, CHROMATIN, CENTROME, RA, CYNDI, [id number], JO1, B2 GLYPROT, ANTIR, CARDIO GMA, C4, CH50 #### [facility] , Erythrocyte distribution width (RBC) [Ratio] 16.9 % High 11.9-15.3 [facility] Comment on above: Performed By: #### A DNA, SJOGRENS, HELM, C3, HISAB, CCP, CHROMATIN, CENTROME, RA, [facility], [id number], JO1, B2 GLYPROT, ANTIR, CARDIO GMA, C4, CH50 #### [facility] , Hematocrit (Bld) [Volume fraction] 35.6 % Normal 34.0-46.4 [facility] Comment on above: Performed By: #### A DNA, SJOGRENS, HELM, C3, HISAB, CCP, CHROMATIN, CENTROME, RA, [facility], [id number], JO1, B2 GLYPROT, ANTIR, CARDIO GMA, C4, CH50 #### [facility] , Hemoglobin (Bld) [Mass/Vol] 12.1 g/dL Normal 11.8-15.4 [facility] Comment on above: Performed By: #### A DNA, SJOGRENS, HELM, C3, HISAB, CCP, CHROMATIN, CENTROME, RA, [facility]NDI, [id number], JO1, B2 GLYPROT, ANTIR, CARDIO GMA, C4, CH50 #### [facility] , Lymphocytes (Bld) [#/Vol] 2.3 10*3/uL Normal 1.00-4.8 [facility] Comment on above: Performed By: #### A DNA, SJOGRENS, HELM, C3, HISAB, CCP, CHROMATIN, CENTROME, RA, CYNDI, [id number], JO1, B2 GLYPROT, ANTIR, CARDIO GMA, C4, CH50 #### [facility] , Lymphocytes/100 WBC (Bld) 26.3 % Normal . [facility] Comment on above: Performed By: #### A DNA, SJOGRENS, HELM, C3, HISAB, CCP, CHROMATIN, CENTROME, RA, CYNDI, [id number], JO1, B2 GLYPROT, ANTIR, CARDIO GMA, C4, CH50 #### [facility] , MCH (RBC) [Entitic mass] 32.5 pg Normal 24.7-34.3 [facility] Comment on above: Performed By: #### A DNA, SJOGRENS, HELM, C3, HISAB, CCP, CHROMATIN, CENTROME, RA, [facility], [id number], JO1, B2 GLYPROT, ANTIR, CARDIO GMA, C4, CH50 #### [facility] , MCV (RBC) [Entitic vol] 96.0 fL Normal 80-100 [facility] Comment on above: Performed By: #### A DNA, SJOGRENS, HELM, C3, HISAB, CCP, CHROMATIN, CENTROME, RA, CYNDI, [id number], JO1, B2 GLYPROT, ANTIR, CARDIO GMA, C4, CH50 #### [facility] , Mean Corpuscular HGB Conc 33.9 g/dL Normal 32.0-35.0 [facility] Comment on above: Performed By: #### A DNA, SJOGRENS, HELM, C3, HISAB, CCP, CHROMATIN, CENTROME, RA, CYNDI, [id number], JO1, B2 GLYPROT, ANTIR, CARDIO GMA, C4, CH50 #### [facility] , Monocytes (Bld) [#/Vol] 0.7 10*3/uL Normal 0.0-0.8 [facility] Comment on above: Performed By: #### A DNA, SJOGRENS, HELM, C3, HISAB, CCP, CHROMATIN, CENTROME, RA, [facility]NDI, [id number], JO1, B2 GLYPROT, ANTIR, CARDIO GMA, C4, CH50 #### [facility] , Monocytes/100 WBC (Bld) 17.55 % Normal 0.00-20.00 [facility] Comment on above: Performed By: #### A DNA, SJOGRENS, HELM, C3, HISAB, CCP, CHROMATIN, CENTROME, RA, CYNDI, [id number], JO1, B2 GLYPROT, ANTIR, CARDIO GMA, C4, CH50 #### [facility] , Monocytes/100 WBC (Bld) 7.8 % Normal . [facility] Comment on above: Performed By: #### A DNA, SJOGRENS, HELM, C3, HISAB, CCP, CHROMATIN, CENTROME, RA, CYNDI, [id number], JO1, B2 GLYPROT, ANTIR, CARDIO GMA, C4, CH50 #### [facility] , Neutrophils (Bld) [#/Vol] 5.4 10*3/uL Normal 1.8-7.7 [facility] Comment on above: Performed By: #### A DNA, SJOGRENS, HELM, C3, HISAB, CCP, CHROMATIN, CENTROME, RA, [facility]NDI, [id number], JO1, B2 GLYPROT, ANTIR, CARDIO GMA, C4, CH50 #### [facility] , Neutrophils/100 WBC (Bld) 62.8 % Normal . [facility] Comment on above: Performed By: #### A DNA, SJOGRENS, HELM, C3, HISAB, CCP, CHROMATIN, CENTROME, RA, [facility]NDI, [id number], JO1, B2 GLYPROT, ANTIR, CARDIO GMA, C4, CH50 #### [facility] , NRBC% 0.1 /100{WBC} Normal 0-0.5 [facility] Comment on above: Performed By: #### A DNA, SJOGRENS, HELM, C3, HISAB, CCP, CHROMATIN, CENTROME, RA, CYNDI, [id number], JO1, B2 GLYPROT, ANTIR, CARDIO GMA, C4, CH50 #### [facility] , Platelet mean volume (Bld) [Entitic vol] 9.2 fL Normal 6.3-10.7 [facility] Comment on above: Performed By: #### A DNA, SJOGRENS, HELM, C3, HISAB, CCP, CHROMATIN, CENTROME, RA, CYNDI, [id number], JO1, B2 GLYPROT, ANTIR, CARDIO GMA, C4, CH50 #### [facility] , Platelets (Bld) [#/Vol] 292 10*3/uL Normal 150-450 [facility] Comment on above: Performed By: #### A DNA, SJOGRENS, HELM, C3, HISAB, CCP, CHROMATIN, CENTROME, RA, CYNDI, [id number], JO1, B2 GLYPROT, ANTIR, CARDIO GMA, C4, CH50 #### [facility] , RBC (Bld) [#/Vol] 3.71 10*6/uL Normal 3.60-5.00 [facility] Comment on above: Performed By: #### A DNA, SJOGRENS, HELM, C3, HISAB, CCP, CHROMATIN, CENTROME, RA, CYNDI, [id number], JO1, B2 GLYPROT, ANTIR, CARDIO GMA, C4, CH50 #### [facility] , WBC (Bld) [#/Vol] 8.6 10*3/uL Normal 3.8-11.6 [facility] Comment on above: Performed By: #### A DNA, SJOGRENS, HELM, C3, HISAB, CCP, CHROMATIN, CENTROME, RA, CYNDI, [id number], JO1, B2 GLYPROT, ANTIR, CARDIO GMA, C4, CH50 #### [facility] , Comprehensive Metabolic Pane jak 09-15-2024 Albumin [Mass/Vol] 3.8 g/dL Normal 3.5-5.7 [facility] Comment on above: Performed By: #### A DNA, SJOGRENS, HELM, C3, HISAB, CCP, CHROMATIN, CENTROME, RA, CYNDI, [id number], JO1, B2 GLYPROT, ANTIR, CARDIO GMA, C4, CH50 #### [facility] , Albumin/Globulin [Mass ratio] 1.5 {ratio} Normal [facility] Comment on above: Performed By: #### A DNA, SJOGRENS, HELM, C3, HISAB, CCP, CHROMATIN, CENTROME, RA, CYNDI, [id number], JO1, B2 GLYPROT, ANTIR, CARDIO GMA, C4, CH50 #### [facility] , ALP [Catalytic activity/Vol] 53 U/L Normal 34-104 [facility] Comment on above: Performed By: #### A DNA, SJOGRENS, HELM, C3, HISAB, CCP, CHROMATIN, CENTROME, RA, CYNDI, [id number], JO1, B2 GLYPROT, ANTIR, CARDIO GMA, C4, CH50 #### [facility] , ALT [Catalytic activity/Vol] 15 U/L Normal 7-52 [facility] Comment on above: Performed By: #### A DNA, SJOGRENS, HELM, C3, HISAB, CCP, CHROMATIN, CENTROME, RA, CYNDI, [id number], JO1, B2 GLYPROT, ANTIR, CARDIO GMA, C4, CH50 #### [facility] , Anion gap [Moles/Vol] 8.3 mmol/L Normal 6.0-15.0 [facility] Comment on above: Performed By: #### A DNA, SJOGRENS, HELM, C3, HISAB, CCP, CHROMATIN, CENTROME, RA, CYNDI, [id number], JO1, B2 GLYPROT, ANTIR, CARDIO GMA, C4, CH50 #### [facility] , AST [Catalytic activity/Vol] 16 U/L Normal 13-39 [facility] Comment on above: Performed By: #### A DNA, SJOGRENS, HELM, C3, HISAB, CCP, CHROMATIN, CENTROME, RA, CYNDI, [id number], JO1, B2 GLYPROT, ANTIR, CARDIO GMA, C4, CH50 #### [facility] , Bilirubin [Mass/Vol] 0.3 mg/dL Normal 0.3-1.0 [facility] Comment on above: Performed By: #### A DNA, SJOGRENS, HELM, C3, HISAB, CCP, CHROMATIN, CENTROME, RA, CYNDI, [id number], JO1, B2 GLYPROT, ANTIR, CARDIO GMA, C4, CH50 #### [facility] , Calcium [Mass/Vol] 9.0 mg/dL Normal 8.6-10.3 [facility] Comment on above: Performed By: #### A DNA, SJOGRENS, HELM, C3, HISAB, CCP, CHROMATIN, CENTROME, RA, CYNDI, [id number], JO1, B2 GLYPROT, ANTIR, CARDIO GMA, C4, CH50 #### [facility] , Chloride [Moles/Vol] 107 mmol/L Normal 98-107 [facility] Comment on above: Performed By: #### A DNA, SJOGRENS, HELM, C3, HISAB, CCP, CHROMATIN, CENTROME, RA, CYNDI, [id number], JO1, B2 GLYPROT, ANTIR, CARDIO GMA, C4, CH50 #### [facility] , CO2 [Moles/Vol] 26.2 mmol/L Normal 21.0-31.0 [facility] Comment on above: Performed By: #### A DNA, SJOGRENS, HELM, C3, HISAB, CCP, CHROMATIN, CENTROME, RA, CYNDI, [id number], JO1, B2 GLYPROT, ANTIR, CARDIO GMA, C4, CH50 #### [facility] , Creatinine [Mass/Vol] 0.57 mg/dL Low 0.60-1.20 [facility] Comment on above: Performed By: #### A DNA, SJOGRENS, HELM, C3, HISAB, CCP, CHROMATIN, CENTROME, RA, CYNDI, [id number], JO1, B2 GLYPROT, ANTIR, CARDIO GMA, C4, CH50 #### [facility] , Creatinine Clr Calc Pharmacy 157.80 Normal [facility] Comment on above: Performed By: #### A DNA, SJOGRENS, HELM, C3, HISAB, CCP, CHROMATIN, CENTROME, RA, CYNDI, [id number], JO1, B2 GLYPROT, ANTIR, CARDIO GMA, C4, CH50 #### [facility] , GFR/1.73 sq M.predicted MDRD (S/P/Bld) [Vol rate/Area] mL/min/{1.73_m2} Normal [facility] Comment on above: Performed By: #### A DNA, SJOGRENS, HELM, C3, HISAB, CCP, CHROMATIN, CENTROME, RA, CYNDI, [id number], JO1, B2 GLYPROT, ANTIR, CARDIO GMA, C4, CH50 #### [facility] , Globulin (S) [Mass/Vol] 2.6 g/dL Normal [facility] Comment on above: Performed By: #### A DNA, SJOGRENS, HELM, C3, HISAB, CCP, CHROMATIN, CENTROME, RA, CYNDI, [id number], JO1, B2 GLYPROT, ANTIR, CARDIO GMA, C4, CH50 #### [facility] , Glucose [Mass/Vol] 87 mg/dL Normal 70-100 [facility] Comment on above: Result Comment: [facility] Glucose Reference Range is dependent on time and content of last meal. Glucose of more than 200 mg/dL in a nonstressed, ambulatory subject supports the diagnosis of Diabetes Mellitus. ADA recommended reference range Performed By: #### A DNA, SJOGRENS, HELM, C3, HISAB, CCP, CHROMATIN, CENTROME, RA, CYNDI, [id number], JO1, B2 GLYPROT, ANTIR, CARDIO GMA, C4, CH50 #### [facility] , Potassium [Moles/Vol] 3.5 mmol/L Normal 3.5-5.1 [facility] Comment on above: Performed By: #### A DNA, SJOGRENS, HELM, C3, HISAB, CCP, CHROMATIN, CENTROME, RA, CYNDI, [id number], JO1, B2 GLYPROT, ANTIR, CARDIO GMA, C4, CH50 #### [facility] , Protein [Mass/Vol] 6.4 g/dL Normal 6.4-8.9 [facility] Comment on above: Performed By: #### A DNA, SJOGRENS, HELM, C3, HISAB, CCP, CHROMATIN, CENTROME, RA, CYNDI, [id number], JO1, B2 GLYPROT, ANTIR, CARDIO GMA, C4, CH50 #### [facility] , Sodium [Moles/Vol] 138 mmol/L Normal 136-145 [facility] Comment on above: Performed By: #### A DNA, SJOGRENS, HELM, C3, HISAB, CCP, CHROMATIN, CENTROME, RA, CYNDI, [id number], JO1, B2 GLYPROT, ANTIR, CARDIO GMA, C4, CH50 #### [facility] , Urea nitrogen [Mass/Vol] 6 mg/dL Low 7-25 [facility] Comment on above: Performed By: #### A DNA, SJOGRENS, HELM, C3, HISAB, CCP, CHROMATIN, CENTROME, RA, CYNDI, [id number], JO1, B2 GLYPROT, ANTIR, CARDIO GMA, C4, CH50 #### [facility] , Creatinine [Mass/volume] in Serum or PlasmaOrdered By: Sailaja Anderson on 09-15-2024 Creatinine [Mass/Vol] Creatinine [Mass/volume] in Serum or Plasma Low 0.60-1.20 [facility] Dipstick and Microscopicon 0 09-15-2024 Appearance (U) Clear Normal Clear [facility] Comment on above: Order Comment: Name Collection Type:: Clean-Voided Midstream Performed By: #### A DNA, SJOGRENS, HELM, C3, HISAB, CCP, CHROMATIN, CENTROME, RA, CYNDI, [id number], JO1, B2 GLYPROT, ANTIR, CARDIO GMA, C4, CH50 #### [facility] , Bacteria,Urine None Seen Normal None Seen [facility] Comment on above: Order Comment: Name Collection Type:: Clean-Voided Midstream Performed By: #### A DNA, SJOGRENS, HELM, C3, HISAB, CCP, CHROMATIN, CENTROME, RA, CYNDI, [id number], JO1, B2 GLYPROT, ANTIR, CARDIO GMA, C4, CH50 #### [facility] , Bilirubin,Urine Negative Normal Negative [facility] Comment on above: Order Comment: Name Collection Type:: Clean-Voided Midstream Performed By: #### A DNA, SJOGRENS, HELM, C3, HISAB, CCP, CHROMATIN, CENTROME, RA, CYNDI, [id number], JO1, B2 GLYPROT, ANTIR, CARDIO GMA, C4, CH50 #### [facility] , Color (U) Yellow Normal Yellow [facility] Comment on above: Order Comment: Name Collection Type:: Clean-Voided Midstream Performed By: #### A DNA, SJOGRENS, HELM, C3, HISAB, CCP, CHROMATIN, CENTROME, RA, CYNDI, [id number], JO1, B2 GLYPROT, ANTIR, CARDIO GMA, C4, CH50 #### [facility] , Glucose Ql (U) Normal Normal Normal [facility] Comment on above: Order Comment: Name Collection Type:: Clean-Voided Midstream Performed By: #### A DNA, SJOGRENS, HELM, C3, HISAB, CCP, CHROMATIN, CENTROME, RA, CYNDI, [id number], JO1, B2 GLYPROT, ANTIR, CARDIO GMA, C4, CH50 #### [facility] , Hyaline Casts,Urine None Normal 0-8 [facility] Comment on above: Order Comment: Name Collection Type:: Clean-Voided Midstream Performed By: #### A DNA, SJOGRENS, HELM, C3, HISAB, CCP, CHROMATIN, CENTROME, RA, CYNDI, [id number], JO1, B2 GLYPROT, ANTIR, CARDIO GMA, C4, CH50 #### [facility] , Ketones Ql (U) 1+ High Negative [facility] Comment on above: Order Comment: Name Collection Type:: Clean-Voided Midstream Performed By: #### A DNA, SJOGRENS, HELM, C3, HISAB, CCP, CHROMATIN, CENTROME, RA, CYNDI, [id number], JO1, B2 GLYPROT, ANTIR, CARDIO GMA, C4, CH50 #### [facility] , Leukocyte esterase Test strip Ql (U) Negative Normal Negative [facility] Comment on above: Order Comment: Name Collection Type:: Clean-Voided Midstream Performed By: #### A DNA, SJOGRENS, HELM, C3, HISAB, CCP, CHROMATIN, CENTROME, RA, CYNDI, [id number], JO1, B2 GLYPROT, ANTIR, CARDIO GMA, C4, CH50 #### [facility] , Mucus,Urine Rare Normal [facility] Comment on above: Order Comment: Name Collection Type:: Clean-Voided Midstream Performed By: #### A DNA, SJOGRENS, HELM, C3, HISAB, CCP, CHROMATIN, CENTROME, RA, CYNDI, [id number], JO1, B2 GLYPROT, ANTIR, CARDIO GMA, C4, CH50 #### [facility] , Nitrite,Urine Negative Normal Negative [facility] Comment on above: Order Comment: Name Collection Type:: Clean-Voided Midstream Performed By: #### A DNA, SJOGRENS, HELM, C3, HISAB, CCP, CHROMATIN, CENTROME, RA, CYNDI, [id number], JO1, B2 GLYPROT, ANTIR, CARDIO GMA, C4, CH50 #### [facility] , Occult Blood,Urine Negative Normal Negative [facility] Comment on above: Order Comment: Name Collection Type:: Clean-Voided Midstream Performed By: #### A DNA, SJOGRENS, HELM, C3, HISAB, CCP, CHROMATIN, CENTROME, RA, CYNDI, [id number], JO1, B2 GLYPROT, ANTIR, CARDIO GMA, C4, CH50 #### [facility] , pH (U) 7.0 [pH] Normal 5.0-9.0 [facility] Comment on above: Order Comment: Name Collection Type:: Clean-Voided Midstream Performed By: #### A DNA, SJOGRENS, HELM, C3, HISAB, CCP, CHROMATIN, CENTROME, RA, CYNDI, [id number], JO1, B2 GLYPROT, ANTIR, CARDIO GMA, C4, CH50 #### [facility] , Protein,Urine Trace High Negative [facility] Comment on above: Order Comment: Name Collection Type:: Clean-Voided Midstream Performed By: #### A DNA, SJOGRENS, HELM, C3, HISAB, CCP, CHROMATIN, CENTROME, RA, CYNDI, [id number], JO1, B2 GLYPROT, ANTIR, CARDIO GMA, C4, CH50 #### [facility] , RBC,Urine 1 [HPF] Normal 0-4 [facility] Comment on above: Order Comment: Name Collection Type:: Clean-Voided Midstream Performed By: #### A DNA, SJOGRENS, HELM, C3, HISAB, CCP, CHROMATIN, CENTROME, RA, CYNDI, [id number], JO1, B2 GLYPROT, ANTIR, CARDIO GMA, C4, CH50 #### [facility] , Specificy Jessie,Urine 1.025 Normal 1.001-1.030 [facility] Comment on above: Order Comment: Name Collection Type:: Clean-Voided Midstream Performed By: #### A DNA, SJOGRENS, HELM, C3, HISAB, CCP, CHROMATIN, CENTROME, RA, YCNDI, [id number], JO1, B2 GLYPROT, ANTIR, CARDIO GMA, C4, CH50 #### [facility] , Squamous Epithelial Cell,Urine 3 [HPF] High 0-2 [facility] Comment on above: Order Comment: Name Collection Type:: Clean-Voided Midstream Performed By: #### A DNA, SJOGRENS, HELM, C3, HISAB, CCP, CHROMATIN, CENTROME, RA, CYNDI, [id number], JO1, B2 GLYPROT, ANTIR, CARDIO GMA, C4, CH50 #### [facility] , Urobilinogen,Urine 2 mg/dL High Normal [facility] Comment on above: Order Comment: Name Collection Type:: Clean-Voided Midstream Performed By: #### A DNA, SJOGRENS, HELM, C3, HISAB, CCP, CHROMATIN, CENTROME, RA, CYNDI, [id number], JO1, B2 GLYPROT, ANTIR, CARDIO GMA, C4, CH50 #### [facility] , WBC,Urine 1 [HPF] Normal 0-4 [facility] Comment on above: Order Comment: Name Collection Type:: Clean-Voided Midstream Performed By: #### A DNA, SJOGRENS, HELM, C3, HISAB, CCP, CHROMATIN, CENTROME, RA, CYNDI, [id number], JO1, B2 GLYPROT, ANTIR, CARDIO GMA, C4, CH50 #### [facility] , Drug Screen,Urineon 09-15-19 25 Amphetamine Screen,Urine Negative Normal Negative [facility] Comment on above: Performed By: #### A DNA, SJOGRENS, HELM, C3, HISAB, CCP, CHROMATIN, CENTROME, RA, CYNDI, [id number], JO1, B2 GLYPROT, ANTIR, CARDIO GMA, C4, CH50 #### [facility] , Barbiturate Screen,Urine Negative Normal Negative [facility] Comment on above: Performed By: #### A DNA, SJOGRENS, HELM, C3, HISAB, CCP, CHROMATIN, CENTROME, RA, CYNDI, [id number], JO1, B2 GLYPROT, ANTIR, CARDIO GMA, C4, CH50 #### [facility] , Benzodiazepines Screen,Urine Negative Normal Negative [facility] Comment on above: Performed By: #### A DNA, SJOGRENS, HELM, C3, HISAB, CCP, CHROMATIN, CENTROME, RA, CYNDI, [id number], JO1, B2 GLYPROT, ANTIR, CARDIO GMA, C4, CH50 #### [facility] , Cannabinoid Screen,Urine Negative Normal Negative [facility] Comment on above: Result Comment: Thes e are unconfirmed results and should not be used for legal purposes. Drug Cut-Off Concentration: AMPH 1000 ng/mL OPAL 200 ng/mL AURELIANO 200 ng/mL COCM 300 ng/mL OP 300 ng/mL PCP 25 ng/mL THC 20 ng/mL PERFORMED BY: [address] [address] PATHOLOGIST SCI[employer] CARLOS KNAPP M.D. Performed By: #### A DNA, SJOGRENS, HELM, C3, HISAB, CCP, CHROMATIN, CENTROME, RA, CYNDI, [id number], JO1, B2 GLYPROT, ANTIR, CARDIO GMA, C4, CH50 #### [facility] , Cocaine Screen,Urine Negative Normal Negative [facility] Comment on above: Performed By: #### A DNA, SJOGRENS, HELM, C3, HISAB, CCP, CHROMATIN, CENTROME, RA, CYNDI, [id number], JO1, B2 GLYPROT, ANTIR, CARDIO GMA, C4, CH50 #### [facility] , Opiate Screen,Urine Negative Normal Negative [facility] Comment on above: Performed By: #### A DNA, SJOGRENS, HELM, C3, HISAB, CCP, CHROMATIN, CENTROME, RA, CYNDI, [id number], JO1, B2 GLYPROT, ANTIR, CARDIO GMA, C4, CH50 #### [facility] , Phencyclidine Screen,Urine Negative Normal Negative [facility] Comment on above: Performed By: #### A DNA, SJOGRENS, HELM, C3, HISAB, CCP, CHROMATIN, CENTROME, RA, CYNDI, [id number], JO1, B2 GLYPROT, ANTIR, CARDIO GMA, C4, CH50 #### [facility] , ECG 12 lead ECGon 09-15-2024 ECG 12 lead ECG [facility] [place] [address] Electrocardiograph Report Signed Patient: Shazia Chou MR#: [id number] : 1990 Acct:[id number] Age/Sex: 33 / F ADM Date: 09/15/24 Loc: ER Room: Type: [facility] ER Attending Dr: Ordering Provider: Sailaja [...] needs review Confirmed by Agus Hooper DO ([id number]) on 09/15/2024 3:29:15 PM Referred By: Electronically Signed By: Agus Hooper DO Transcribed By: MUS Signed By Agus Hooper DO 5 1529 Normal [facility] Eosinophils Auto (Bld) [#/Vo l]Ordered By: Sailaja Anderson on 09-15-2024 Eosinophils (Bld) [#/Vol] Automated eosinophil count 0.0-0.45 [facility] Eosinophils/100 WBC Auto (Bl d)Ordered By: Sailaja Anderson on 09-15-2024 Eosinophils/100 WBC (Bld) Automated eosinophil % . [facility] Epithelial cells.squamous [# /area] in Urine sediment by Automated countOrdered By: Sailaja Anderson on 09-15-2024 Epithelial cells.squamous Auto (Urine sed) [#/Area] Epithelial cells.squamous [#/area] in Urine sediment by Automated count High 0-2 [facility] Erythrocyte Sedimentation Ra don 09-15-2024 ESR (Bld) [Velocity] 7 mm/h Normal 0-19 [facility] Comment on above: Result Comment: PERF ORMED BY: [facility] [address] [place] [address] PATHOLOGIST SCI[employer] CARLOS KNAPP M.D. Performed By: #### A DNA, SJOGRENS, HELM, C3, HISAB, CCP, CHROMATIN, CENTROME, RA, CYNDI, [id number], JO1, B2 GLYPROT, ANTIR, CARDIO GMA, C4, CH50 #### [facility] , Erythrocyte distribution wid th Auto (RBC) [Ratio]Ordered By: Sailaja Anderson on 09-15-2024 Erythrocyte distribution width (RBC) [Ratio] Erythrocyte distribution width [Ratio] by Automated count High 11.9-15.3 [facility] Erythrocyte sedimentation ra te by Photometric methodOrdered By: Sailaja Anderson on 09-15-2024 ESR Photometric method (Bld) [Velocity] Erythrocyte sedimentation rate by Photometric method 0-19 [facility] Erythrocytes [#/area] in Uri ne sediment by Automated countOrdered By: Sailaja Anderson on 09-15-2024 RBC Auto (Urine sed) [#/Area] Erythrocytes [#/area] in Urine sediment by Automated count 0-4 [facility] Ethanol [Mass/volume] in Ser um or PlasmaOrdered By: Sailaja Anderson on 09-15-2024 Ethanol [Mass/Vol] Ethanol [Mass/volume ] in Serum or Plasma [facility] Comment on above: Test not performed Ethyl Alcohol Profileon Ethanol [Mass/Vol] mg/dL Normal [facility] Comment on above: Performed By: #### A DNA, SJOGRENS, HELM, C3, HISAB, CCP, CHROMATIN, CENTROME, RA, CYNDI, [id number], JO1, B2 GLYPROT, ANTIR, CARDIO GMA, C4, CH50 #### [facility] , Percent Ethanol Not performed Normal [facility] Comment on above: Result Comment: PERF ORMED BY: [facility] [place] [address] PATHOLOGIST SCI[employer] CARLOS KNAPP M.D. Performed By: #### A DNA, SJOGRENS, HELM, C3, HISAB, CCP, CHROMATIN, CENTROME, RA, CYNDI, [id number], JO1, B2 GLYPROT, ANTIR, CARDIO GMA, C4, [...] Mia PERRY Any recent labs: done @ [facility] ER 09/05/24 Health Maintenance UTD: Colonoscopy: NA Mammogram: 12/09/23 [facility] Pelvic/Pap: 12/05 following hysterectomy, states she was [...] her previous pcp in July, to the [facility] ED on 09/05/2024 and again on 09/11/2024. She reports she was at [facility] last week and they performed a bunch of laboratory testing that came back negative. She was seen at in [place] on 09/13/2024 for chest pain and this [...] unspecified site) Reviewed the discharge summary from [facility]- CMP, CRP, ESR, & CBC - WNL Reviewed the Echo from in [place] on the 13 of September- Normal results Awaiting additional records from providers f/u after consult with neurology Ordered: [facility] External Ambulatory Referral 2. Balance problem (R26.89: Other abnormalities of gait and mobility) Reviewed the discharge summary from [facility]- CMP, CRP, ESR, & CBC - WNL Reviewed the Echo from in [place] on the 13 of September- Normal results Awaiting additional records from providers f/u after consult with neurology Ordered: [facility] External Ambulatory Referral 3. Encounter to establish [...] in addres (more content not included)... Normal [facility] Comment on above: Result Comment: Elec tronically Signed By: KURT BALBUENA CNP\.br\Date and Time Signed: 09/15/24 14:31 EST Free T4 (Free Thyroxine)on 0 09-15-2024 Free T4 [Mass/Vol] 1.02 ng/dL Normal 0.61-1.12 [facility] Comment on above: Performed By: #### A DNA, SJOGRENS, HELM, C3, HISAB, CCP, CHROMATIN, CENTROME, RA, CYNDI, [id number], JO1, B2 GLYPROT, ANTIR, CARDIO GMA, C4, CH50 #### [facility] , Globulin Calc (S) [Mass/Vol] Ordered By: Sailaja Anderson on 09-15-2024 Globulin (S) [Mass/Vol] Serum globulin measurement by calculation (mass/volume) [facility] Glucose [Mass/volume] in Ser um or PlasmaOrdered By: Sailaja Anderson on 09-15-2024 Glucose [Mass/Vol] Glucose [Mass/volume ] in Serum or Plasma 70-100 [facility] Comment on above: ADA recommended refe [...] [Mass/volume] in Urine by Test strip Normal [facility] HCG ( test) IA.rapi d Ql (U)Ordered By: Sailaja Anderson on 09-15-2024 HCG ( test) Ql (U) Urine human chorionic gonadotropin (hCG) detection by immunoassay [facility] HCG,Urineon 09-15-2024 Beta HCG ( test) Ql (U) Negative Normal [facility] Comment on above: Order Comment: Name Collection Type:: Clean-Voided Midstream Result Comment: PERF ORMED BY: [facility] [address] [place] [address] PATHOLOGIST SCIENCE [employer] CARLOS KNAPP M.D. Performed By: #### A DNA, SJOGRENS, HELM, C3, HISAB, CCP, CHROMATIN, CENTROME, RA, CYNDI, [id number], JO1, B2 GLYPROT, ANTIR, CARDIO GMA, C4, CH50 #### [facility] , Hematocrit Auto (Bld) [Volum e fraction]Ordered By: Sailaja Anderson on 09-15-2024 Hematocrit (Bld) [Volume fraction] Hematocrit [Volume Fraction] of Blood by Automated count 34.0-46.4 [facility] Hemoglobin Test strip Ql (U) Ordered By: Sailaja Anderson on 09-15-2024 Hemoglobin Ql (U) Hemoglobin [Presence ] in Urine by Test strip Negative [facility] Hemoglobin [Mass/volume] in BloodOrdered By: Sailaja Anderson on 09-15-2024 Hemoglobin (Bld) [Mass/Vol] Hemoglobin [Mass/volume] in Blood 11.8-15.4 [facility] Hyaline casts [#/area] in Ur ine sediment by Automated countOrdered By: Sailaja Anderson on 09-15-2024 Hyaline casts Auto (Urine sed) [#/Area] Hyaline casts [#/area] in Urine sediment by Automated count 0-8 [facility] INR in Platelet poor plasma by Coagulation assayOrdered By: Sailaja Anderson on 09-15-2024 INR Coag (PPP) [Relative time] INR in Platelet poor plasma by Coagulation assay [facility] Comment on above: INR Therapeutic Rang [...] n Urine by Test strip High Negative [facility] Leukocyte esterase [Presence ] in Urine by Test stripOrdered By: Sailaja Anderson on 09-15-2024 Leukocyte esterase Test strip Ql (U) Leukocyte esterase [Presence] in Urine by Test strip Negative [facility] Leukocytes [#/area] in Urine sediment by Automated countOrdered By: Sailaja Anderson on 09-15-2024 WBC Auto (Urine sed) [#/Area] Leukocytes [#/area] in Urine sediment by Automated count 0-4 [facility] Leukocytes [#/volume] correc caitlin for nucleated erythrocytes in Blood by Automated counOrdered By: Sailaja Anderson on 09-15-2024 WBC corrected for nucl RBC Auto (Bld) [#/Vol] Leukocytes [#/volume] corrected for nucleated erythrocytes in Blood by Automated coun 3.8-11.6 [facility] Lymphocytes Auto (Bld) [#/Vo l]Ordered By: Sailaja Anderson on 09-15-2024 Lymphocytes (Bld) [#/Vol] Lymphocytes [#/volume] in Blood by Automated count 1.00-4.8 [facility] Lymphocytes/100 WBC Auto (Bl d)Ordered By: Sailaja Anderson on 09-15-2024 Lymphocytes/100 WBC (Bld) Lymphocytes/100 leukocytes in Blood by Automated count . [facility] MCH Auto (RBC) [Entitic mass ]Ordered By: Sailaja Anderson on 09-15-2024 MCH (RBC) [Entitic mass] MCH [Entitic mass] by Automated count 24.7-34.3 [facility] MCHC Auto (RBC) [Mass/Vol]Or dered By: Sailaja Anderson on 09-15-2024 MCHC (RBC) [Mass/Vol] MCHC [Mass/volume] by Automated count 32.0-35.0 [facility] MCV Auto (RBC) [Entitic vol] Ordered By: Sailaja Anderson on 09-15-2024 MCV (RBC) [Entitic vol] MCV [Entitic volume] by Automated count 80-100 [facility] Magnesiumon 09-15-2024 Magnesium [Mass/Vol] 1.7 mg/dL Low 1.9-2.7 [facility] Comment on above: Performed By: #### A DNA, SJOGRENS, HELM, C3, HISAB, CCP, CHROMATIN, CENTROME, RA, CYNDI, [id number], JO1, B2 GLYPROT, ANTIR, CARDIO GMA, C4, CH50 #### [facility] , Magnesium [Mass/volume] in S tushar or PlasmaOrdered By: Sailaja Anderson on 09-15-2024 Magnesium [Mass/Vol] Magnesium [Mass/vol ume] in Serum or Plasma Low 1.9-2.7 [facility] Monocyte distribution width [Entitic volume] in Blood by AutomatedOrdered By: Sailaja Anderson on 09-15-2024 Monocyte distribution width Auto (Bld) [Entitic vol] Monocyte distribution width [Entitic volume] in Blood by Automated 0.00-20.00 [facility] Monocytes Auto (Bld) [#/Vol] Ordered By: Sailaja Anderson on 09-15-2024 Monocytes (Bld) [#/Vol] Automated blood monocyte count 0.0-0.8 [facility] Monocytes/100 WBC Auto (Bld) Ordered By: Sailaja Anderson on 09-15-2024 Monocytes/100 WBC (Bld) Automated monocyte % . [facility] Mucus [Presence] in Urine by AutomatedOrdered By: Sailjaa Anderson on 09-15-2024 Mucus Auto Ql (U) Mucus [Presence] in Urine by Automated [facility] Neutrophils Auto (Bld) [#/Vo l]Ordered By: Sailaja Anderson on 09-15-2024 Neutrophils (Bld) [#/Vol] Neutrophils [#/volume] in Blood by Automated count 1.8-7.7 [facility] Neutrophils/100 WBC Auto (Bl d)Ordered By: Sailaja Anderson on 09-15-2024 Neutrophils/100 WBC (Bld) Automated neutrophil % . [facility] Nitrite Test strip Ql (U)Ord ered By: Sailaja Anderson on 09-15-2024 Nitrite Ql (U) Nitrite [Presence] i n Urine by Test strip Negative [facility] No Panel InformationOrdered By: Sailaja Anderson on 09-15-2024 Estimated GFR (CKD-EPI) > 60.0 mL/Min [facility] Creatinine Clearance (Chem 157.80 [facility] Nucleated erythrocytes [Pres ence] in Blood by Automated countOrdered By: Sailaja Anderson on 09-15-2024 Nucleated RBC Auto Ql (Bld) Nucleated erythrocytes [Presence] in Blood by Automated count 0-0.5 [facility] Opiates [Presence] in Urine by Screen methodOrdered By: Sailaja Anderson on 09-15-2024 Opiates Screen Ql (U) Opiates [Presence] in Urine by Screen method Negative [facility] Partial Thromboplastin Timeo n 09-15-2024 aPTT Coag (Bld) [Time] 28.0 s Normal 25.1-36.5 [facility] Comment on above: Result Comment: A he matocrit value greater than 55% may lead to inaccurate results in coagulation testing. Patients having hematocrit values >55% require a special collection tube for coagulation studies. Please contact the laboratory at [phone] for redraw instructions. PERFORMED BY: [facility] [address] [place] [address] PATHOLOGIST SCIENCE [employer]BER CARLOS KNAPP M.D. Performed By: #### A DNA, SJOGRENS, HELM, C3, HISAB, CCP, CHROMATIN, CENTROME, RA, CYNDI, [id number], JO1, B2 GLYPROT, ANTIR, CARDIO GMA, C4, CH50 #### [facility] , Phencyclidine Screen Ql (U)O rdered By: Sailaja Anderson on 09-15-2024 Phencyclidine Ql (U) Phencyclidine [Presence] in Urine by Screen method Negative [facility] Platelet mean volume Auto (B ld) [Entitic vol]Ordered By: Sailaja Anderson on 09-15-2024 Platelet mean volume (Bld) [Entitic vol] Platelet mean volume [Entitic volume] in Blood by Automated count 6.3-10.7 [facility] Platelets Auto (Bld) [#/Vol] Ordered By: Sailaja Anderson on 09-15-2024 Platelets (Bld) [#/Vol] Platelets [#/volume] in Blood by Automated count 150-450 [facility] Potassium [Moles/volume] in Serum or PlasmaOrdered By: Sailaja Anderson on 09-15-2024 Potassium [Moles/Vol] Potassium [Moles/volume] in Serum or Plasma 3.5-5.1 [facility] Protein Test strip (U) [Mass /Vol]Ordered By: Sailaja Anderson on 09-15-2024 Protein (U) [Mass/Vol] Protein [Mass/vol ume] in Urine by Test strip High Negative [facility] Protein [Mass/volume] in Ser um or PlasmaOrdered By: Sailaja Anderson on 09-15-2024 Protein [Mass/Vol] Protein [Mass/volume ] in Serum or Plasma 6.4-8.9 [facility] Prothrombin Time INRon 09-15 INR Coag (PPP) [Relative time] 0.9 {INR} Normal [facility] Comment on above: Result [...] C3, HISAB, CCP, CHROMATIN, CENTROME, RA, CYNDI, [id number], JO1, B2 GLYPROT, ANTIR, CARDIO GMA, C4, CH50 #### [facility] , PT Coag (PPP) [Time] 10.4 s Normal 9.0-12.9 [facility] Comment on above: Result Comment: A he matocrit value greater than 55% may lead to inaccurate results in coagulation testing. Patients having hematocrit values >55% require a special collection tube for coagulation studies. Please contact the laboratory at [phone] for redraw instructions. Performed By: #### A DNA, SJOGRENS, HELM, C3, HISAB, CCP, CHROMATIN, CENTROME, RA, CYNDI, [id number], JO1, B2 GLYPROT, ANTIR, CARDIO GMA, C4, CH50 #### [facility] , Prothrombin time (PT)Ordered By: Sailaja Anderson on 09-15-2024 PT Coag (PPP) [Time] Prothrombin time (PT) 9.0- 12.9 [facility] Comment on above: A hematocrit value g reater than 55% may lead to inaccurate results in coagulation testing. Patients having hematocrit values >55% require a special collection tube for coagulation studies. Please contact the laboratory at [phone] for redraw instructions. RBC Auto (Bld) [#/Vol]Ordere d By: Sailaja Anderson on 09-15-2024 RBC (Bld) [#/Vol] Erythrocytes [#/volu me] in Blood by Automated count 3.60-5.00 [facility] Serum or plasma albumin/glob ulin mass ratioOrdered By: Sailaja Anderson on 09-15-2024 Albumin/Globulin [Mass ratio] Serum or plasma albumin/globulin mass ratio [facility] Serum or plasma anion gap de terminationOrdered By: Sailaja Anderson on 09-15-2024 Anion gap [Moles/Vol] Serum or plasma an ion gap determination 6.0-15.0 [facility] Sodium [Moles/volume] in Ser um or PlasmaOrdered By: Sailajaangus Anderson on 09-15-2024 Sodium [Moles/Vol] Sodium [Moles/volume ] in Serum or Plasma 136-145 [facility] Specific gravity Test strip (U) [Rel density]Ordered By: Sailaja Anderson on 09-15-2024 Specific gravity (U) [Rel density] Specific gravity of Urine by Test strip 1.001-1.030 [facility] Thyroid Stimulating Hormoneo n 09-15-2024 TSH Qn 0.73 m[IU]/L Normal 0.45-5.33 [facility] Comment on above: Result Comment: PERF ORMED BY: [id number] [address] [address] PATHOLOGIST SCIENCE FACULTY MEMBER CARLOS KNAPP M.D. Performed By: #### A DNA, SJOGRENS, HELM, C3, HISAB, CCP, CHROMATIN, CENTROME, RA, CYNDI, [id number], JO1, B2 GLYPROT, ANTIR, CARDIO GMA, C4, CH50 #### [facility] , Thyrotropin [Units/volume] i n Serum or PlasmaOrdered By: Sailaja Anderson on 09-15-2024 TSH Qn Thyrotropin [Units/volume] in Serum or Plasma 0.45-5.33 [facility] Thyroxine (T4) free [Mass/vo lume] in Serum or PlasmaOrdered By: Sailaja [facility]-2024 Free T4 [Mass/Vol] Thyroxine (T4) free [Mass/volume] in Serum or Plasma 0.61-1.12 [facility] Troponin I High Sensitivityo n 09-15-2024 Troponin I High Sensitivity 2.3 pg/mL Normal 0.0-15.0 [facility] Comment on above: Result Comment: PERF ORMED BY: [facility] [address] [place] [address] PATHOLOGIST SCIENCE FACULTY MEMBER CARLOS KNAPP M.D. Performed By: #### A DNA, SJOGRENS, HELM, C3, HISAB, CCP, CHROMATIN, CENTROME, RA, CYNDI, [id number], JO1, B2 GLYPROT, ANTIR, CARDIO GMA, C4, CH50 #### [facility] , Troponin I.cardiac [Mass/vol ume] in Serum or Plasma by Detection limit <= 0.01 ng/Ordered By: Sailaja Anderson on 09-15-2024 Troponin I.cardiac DL <= 0.01 ng/mL [Mass/Vol] Troponin I.cardiac [Mass/volume] in Serum or Plasma by Detection limit <= 0.01 ng/ 0.0-15.0 [facility] Urea nitrogen [Mass/volume] in Serum or PlasmaOrdered By: Sailaja Anderson on 09-15-2024 Urea nitrogen [Mass/Vol] Urea nitrogen [Mass/volume] in Serum or Plasma Low 7-25 [facility] Urobilinogen Test strip (U) [Mass/Vol]Ordered By: Sailaja Anderson on 09-15-2024 Urobilinogen (U) [Mass/Vol] Urobilinogen [Mass/volume] in Urine by Test strip High Normal [facility] WBC Auto (Bld) [#/Vol]Ordere d By: Sailaja Anderson on 09-15-2024 WBC (Bld) [#/Vol] Leukocytes [#/volume ] in Blood by Automated count 3.8-11.6 [facility] X-ray reportOrdered By: Wiley Shetty on 09-15-2024 Study report [facility] Main [address] [address] XRay Report Signed Patient: Shazia Chou MR#: [id number] : 1990 Acct:[id number] Age/Sex: 33 / F ADM Date: 5 Loc: ER Room: Type: [facility] ER Attending Dr: Copies to: Sailaja [...] Wiley Shetty M.D.09/15/2024 3:56 PM Dictation Location: [facility]-- Transcribed By: MARKY 09/15/241555 Dictated By: Wiley Shetty II, MD 09/15/241555 Signed By: 09/15/24 155 [facility] Work Phone: XR chest 2V*on 09-15-2024 XR chest 2V* [facility] [place] [address] XRay Report Signed Patient: Shazia Chou MR#: [id number] : 1990 Acct:[id number] Age/Sex: 33 / F ADM Date: 09/15/24 Loc: ER Room: Type: [facility] ER Attending Dr: Copies to: Sailaja [...] Wiley Shetty M.D.09/15/2024 3:56 PM Dictation Location: [place] [address] Transcribed By: [facility] 09/15/241555 Dictated By: Wiley Shetty II, MD 09/15/241555 Signed By: 09/15/241555 Normal [facility] aPTT in Platelet poor plasma by Coagulation assayOrdered By: Sailaja Anderson on 09-15-2024 aPTT Coag (PPP) [Time] Activated partial thromboplastin time (aPTT) in platelet poor plasma by coagulation a 25.1-36.5 [facility] Comment on above: A hematocrit value g reater than 55% may lead to inaccurate results in coagulation testing. Patients having hematocrit values >55% require a special collection tube for coagulation studies. Please contact the laboratory at [phone] for redraw instructions. pH Test strip (U)Ordered By: Sailaja Anderson on 09-15-2024 pH (U) pH of Urine by Test strip 5.0-9.0 [facility] TRANSTHORACIC ECHO (TTE) COM PLETEon 09-13-2024 TRANSTHORACIC ECHO (TTE) COMPLETE [address], [address] [place] [address] TRANSTHORACIC ECHOCARDIOGRAM REPORT Patient Name: SHAZIA ANTONYJOEL Reading Physician: [id number] Adithya Boswell MD, [facility] Study Date: 09/13/2024 Ordering Provider: [id number] ALEAH HOWARD MRN/PID: [id number] Fellow: Nurse: Date of /Age: 4 1990 / 33 years Motion Picture Scene Builder: Julissa Licona [facility], T Gender Assigned at F Additional Staff: : Height: 170.18 cm Admit Date: Weight: 85.28 kg Admission Status: BSA / BMI: 1.97 m2 / 29.45 Department Location: [address] Blood Pressure: 118 /76 mmHg Study Type: TRANSTHORACIC ECHO (TTE) COMPLETE Diagnosis/ICD: Angina pectoris, unspecified-I20.9; Shortness of breath-R06.02; Palpitations-R00.2; Family history of ischemic heart disease and other diseases of the circulatory system-Z82.49; Essential (primary) hypertension-I10 Indication: Tobacco Abuse, Anxiety/Depression, Pseudotumor Cerebri, ETOH Abuse, Bipolar Disorder, History of Gastric Bypass CPT Codes: Echo Complete w Full Doppler-72111 Study Detail: The following Echo studies were [...] 0.7 m/s (0.6-0.9m/s) PV Max P.1 mmHg [id number] Adithya Boswell MD, FACC Electronically signed on 09/13/2024 at 4:00:19 PM Final [facility] US Heart TransthoracicOrdere d By: Adithya Boswell on 09-13-2024 Aortic Valve Area by Continuity of Peak Velocity 2.48 cm2 [facility] Work Phone: Aortic Valve Area by Continuity of VTI 2.66 cm2 [facility] Work Phone: [phone] AV mn grad 4 mmHg [facility] Work Phone: [phone] AV pk grad 8 mmHg [facility] Work Phone: [phone] AV pk joellen 1.43 m/s [facility] Work Phone: [phone] LV A4C EF 67.8 [facility] Work Phone: [phone] LV Biplane EF 68 % [facility] Work Phone: [phone] LV EF 68 % [facility] Work Phone: [phone] LVIDd 5.01 cm [facility] Work Phone: [phone] LVOT diam 2.2 cm [facility] Work Phone: [phone] MV avg E/e' ratio 6.6 [facility] Work Phone: [phone] MV E/A ratio 1.52 [facility] Work Phone: [phone] RVSP 27 mmHg [facility] Work Phone: [phone] [facility] Work Phone: Heart Transthoracicon [address], [address] [place] [address] TRANSTHORACIC ECHOCARDIOGRAM REPORT Patient Name: SHAZIA JOSÉ ANTONIO Garcia Physician: [id number] Adithya Boswell MD, FACC Study Date: 09/13/2024 Ordering Provider: [id number] ALEAH BUTLERN/PID: [id number] Fellow: Nurse: Date of /Age: 4 1990 / 33 years Motion Picture Scene Builder: Julissa Licona RDCS, RVT Gender Assigned at F Additional Staff: : Height: 170.18 cm Admit Date: Weight: 85.28 kg Admission Status: BSA / BMI: 1.97 m2 / 29.45 Department Location: [facility] kg/m2 [facility] Blood Pressure: 118 /76 mmHg Study Type: TRANSTHORACIC ECHO (TTE) COMPLETE Diagnosis/ICD: Angina pectoris, unspecified-I20.9; Shortness of breath-R06.02; Palpitations-R00.2; Family history of ischemic heart disease and other diseases of the circulatory system-Z82.49; Essential (primary) hypertension-I10 Indication: Tobacco Abuse, Anxiety/Depression, Pseudotumor Cerebri, ETOH Abuse, Bipolar Disorder, History of Gastric Bypass CPT Codes: Echo Complete w Full Doppler-78972 Study Detail: The following Echo studies were [...] included)... Adithya Jenkins M D - 09/13/[address], [address], [place] [address] TRANSTHORACIC ECHOCARDIOGRAM REPORT Patient Name: SHAZIA CHOU Reading Physician: [id number] Adithya Boswell MD, [facility] Study Date: 09/13/2024 Ordering Provider: [id number] ALEAH HOWARD MRN/PID: [id number] Fellow: Nurse: Date of /Age: 4 1990 / 33 years Motion Picture Scene Builder: Julissa Licona RDCS, T Gender Assigned at F Additional Staff: : Height: 170.18 cm Admit Date: Weight: 85.28 kg Admission Status: BSA / BMI: 1.97 m2 / 29.45 Department Location: [facility] kg/[address] Blood Pressure: 118 /76 mmHg Study Type: TRANSTHORACIC ECHO (TTE) COMPLETE Diagnosis/ICD: Angina pectoris, unspecified-I20.9; Shortness of breath-R06.02; Palpitations-R00.2; Family history of ischemic heart disease and other diseases of the circulatory system-Z82.49; Essential (primary) hypertension-I10 Indication: Tobacco Abuse, Anxiety/Depression, Pseudotumor Cerebri, ETOH Abuse, Bipolar Disorder, History of Gastric Bypass CPT Codes: Echo Complete w Full Doppler-51117 Study Detail: The following Echo studies were [...] 0.7 m/s (0.6-0.9m/s) PV Max P.1 mmHg [id number] Adithya Boswell MD, [facility] Electronically signed on 09/13/2024 at 4:00:19 PM Final [facility] Work Phone: EBV Early Abon 08-19-2024 EBV early diffuse IgG Qn (S) <9.0 Invalid Interpretation Code 0.0-8.9 [facility] Comment on above: Result Comment: Nega tive < 9.0 Equivocal 9.0 - 10.9 Positive >10.9 Performed at: [facility] [place] [address] [place], [place] [id number] PhD Cordelia Madera Performed By: #### 1 [id number] #### [facility] [address] [place] [address] CHEMISTRYOrdered By: SYSTEM SYSTEM on 08-18-2024 Ferritin [...] Chem Reference Laboratory Testing Ordered By: Rayne Medinaton on 08-18-2024 Test Code 173195 1 Invalid Interpretation Code [facility] Test Name a1C Invalid Interpretation Code [facility] ECG 12 Leadon 08-16-2024 [facility] Work Phone: [phone](OH)D3 [facility] 25-hydroxyvitamin D3 [Mass/Vol] 41.9 ng/mL Normal 31.0-80.[address] [facility] Comment on above: Order Comment: Philip birmingham Type: BLOOD SPECIMENOrdering Facility: [facility] Address: [address] [place] [address] Result Comment: Clas sification of 25 [place] Vitamin D status: Deficiency/Insufficiency: < or = 30 ng/ml. Sufficiency/Optimal Levels: 31-80 ng/mL Toxicity: > 100 ng/mL. Test performed by chemiluminescent immunoassay. Performed By: #### 1 989-3 ####[facility] [id number] [place] [address] [place] CBC W Auto Differential pane l (Bld)on 07-26-2024 Basophils (Bld) [#/Vol] 0.05 10*3/uL Normal <0.[address] [facility] Comment on above: Order Comment: Philip birmingham Type: BLOOD SPECIMEN Ordering Facility: [facility] Address: [address] [place] [address] Performed By: #### 5 7021-8 #### [facility] CLIA [id number] [address] [place] [address] Basophils/100 WBC (Bld) 0.4 % Normal [facility] Comment on above: Order Comment: Speci men Type: BLOOD SPECIMEN Ordering Facility: [facility] Address: [address] [place] [address] Performed By: #### 5 7021-8 #### [facility] CLIA [id number] [address] [place] [address] Differential cell count method Nom (Bld) Auto Normal [facility] Comment on above: Order Comment: Speci men Type: BLOOD SPECIMEN Ordering Facility: [facility] Address: [address] [place] [address] Performed By: #### 5 7021-8 #### [facility] CLIA [id number] [address] [place] [address] Eosinophils (Bld) [#/Vol] 0.29 10*3/uL Normal <0.[address] [facility] Comment on above: Order Comment: Speci men Type: BLOOD SPECIMEN Ordering Facility: [facility] Address: [address] [place] [address] Performed By: #### 5 7021-8 #### [facility] CLIA [id number] [address] [place] [address] Eosinophils/100 WBC (Bld) 2.3 % Normal [facility] Comment on above: Order Comment: Speci men Type: BLOOD SPECIMEN Ordering Facility: [facility] Address: [address] [place] [address] Performed By: #### 5 7021-8 #### [facility] CLIA [id number] [address] [place] [address] Erythrocyte distribution width (RBC) [Ratio] 16.4 % High 11.5-15.[address] [facility] Comment on above: Order Comment: Speci men Type: BLOOD SPECIMEN Ordering Facility: [facility] Address: [address] [place] [address] Performed By: #### 5 7021-8 #### [facility] CLIA [id number] [address] [place] [address] Hematocrit (Bld) [Volume fraction] 38.2 % Normal 36.0-46.[address] [facility] Comment on above: Order Comment: Speci men Type: BLOOD SPECIMEN Ordering Facility: [facility] Address: [address] [place] [address] Performed By: #### 5 7021-8 #### [facility] CLIA [id number] [address] [place] [address] Hemoglobin (Bld) [Mass/Vol] 13.0 g/dL Normal 11.5-15.[address] [facility] Comment on above: Order Comment: Speci men Type: BLOOD SPECIMEN Ordering Facility: [facility] Address: [address] [place] [address] Performed By: #### 5 7021-8 #### [facility] CLIA [id number] [address] [place] [address] Immature granulocytes (Bld) [#/Vol] 0.04 10*3/uL Normal <0.[address] [facility] Comment on above: Order Comment: Speci men Type: BLOOD SPECIMEN Ordering Facility: [facility] Address: [address] [place] [address] Performed By: #### 5 7021-8 #### [facility] CLIA [id number] [address] [place] [address] Immature granulocytes/100 WBC (Bld) 0.3 % Normal [facility] Comment on above: Order Comment: Speci men Type: BLOOD SPECIMEN Ordering Facility: [facility] Address: [address] [place] [address] Performed By: #### 5 7021-8 #### [facility] CLIA [id number] [address] [place] [address] Lymphocytes (Bld) [#/Vol] 1.78 10*3/uL Normal 1.00-4.[address] [facility] Comment on above: Order Comment: Speci men Type: BLOOD SPECIMEN Ordering Facility: [facility] Address: [address] [place] [address] Performed By: #### 5 7021-8 #### [facility] CLIA [id number] [address] [place] [address] Lymphocytes/100 WBC (Bld) 14.4 % Normal [facility] Comment on above: Order Comment: Speci men Type: BLOOD SPECIMEN Ordering Facility: [facility] Address: [address] [place] [address] Performed By: #### 5 7021-8 #### [facility] CLIA [id number] [address] [place] [address] MCH (RBC) [Entitic mass] 31.4 pg Normal 26.0-34.[address] [facility] Comment on above: Order Comment: Speci men Type: BLOOD SPECIMEN Ordering Facility: [facility] Address: [address] [place] [address] Performed By: #### 5 7021-8 #### [facility] CLIA [id number] [address] [place] [address] MCHC (RBC) [Mass/Vol] 34.0 g/dL Normal 30.5-36.0 [facility] Comment on above: Order Comment: Speci men Type: BLOOD SPECIMEN Ordering Facility: [facility] Address: [address] [place] [address] Performed By: #### 5 7021-8 #### [facility] CLIA [id number] [address] [place] [address] MCV (RBC) [Entitic vol] 92.3 fL Normal 80.0-100.[address] [facility] Comment on above: Order Comment: Speci men Type: BLOOD SPECIMEN Ordering Facility: [facility] Address: [address] [place] [address] Performed By: #### 5 7021-8 #### [facility] CLIA [id number] [address] [place] [address] Monocytes (Bld) [#/Vol] 0.62 10*3/uL Normal <0.[address] [facility] Comment on above: Order Comment: Speci men Type: BLOOD SPECIMEN Ordering Facility: [facility] Address: [address] [place] [address] Performed By: #### 5 7021-8 #### [facility] CLIA [id number] [address] [place] [address] 11906 Monocytes/100 WBC (Bld) 5.0 % Normal [facility] Comment on above: Order Comment: Speci men Type: BLOOD SPECIMEN Ordering Facility: [facility] Address: [address] [place] [address] Performed By: #### 5 7021-8 #### [facility] CLIA [id number] [address] [place] [address] 31881 Neutrophils (Bld) [#/Vol] 9.58 10*3/uL High 1.45-7.[address] [facility] Comment on above: Order Comment: Speci men Type: BLOOD SPECIMEN Ordering [facility] Address: [address] [place] [address] Performed By: #### 5 7021-8 #### [facility] CLIA [id number] [address] [place] [address] Neutrophils/100 WBC (Bld) 77.6 % Normal [facility] Comment on above: Order Comment: Speci men Type: BLOOD SPECIMEN Ordering Facility[facility] Address: [address] [place] [address] Performed By: #### 5 7021-8 #### [facility] CLIA [id number] [address] [place] [address]687 Nucleated RBC (Bld) [#/Vol] 10*3/uL Normal <0.[address] [facility] Comment on above: Order Comment: Speci men Type: BLOOD SPECIMEN Order[facility] Address: [address] [place] [address] Performed By: #### 5 7021-8 #### [facility] CLIA [id number] [address] [place] [address] Nucleated RBC/100 WBC (Bld) [Ratio] 0.0 /100 WBC Normal [facility] Comment on above: Order Comment: Speci men Type: BLOOD SPECIMEN Ordering Facility: [facility] Address: [facility] [place] [address] Performed By: #### 5 7021-8 #### [facility] CLIA [id number] [address] [place] [address]73 Platelet mean volume (Bld) [Entitic vol] 10.8 fL Normal 9.0-12.[address] [facility] Comment on above: Order Comment: Speci men Type: BLOOD SPECIMEN Ordering Facility: [facility] Address: [address] [place] [address] Performed By: #### 5 7021-8 #### [facility] CLIA [id number] [address] [place] [address] 19137 Platelets (Bld) [#/Vol] 302 10*3/uL Normal 150-[address] [facility] Comment on above: Order Comment: Speci men Type: BLOOD SPECIMEN Ordering Facility: [facility] Address: [address] [place] [address] Performed By: #### 5 7021-8 #### [facility] CLIA [id number] [address] [place] [address] 56783 RBC (Bld) [#/Vol] 4.14 10*6/uL Normal 3.90-5.20 [facility] Comment on above: Order Comment: Speci men Type: BLOOD SPECIMEN Order[facility] Facility[facility] Address: [address] [place] [address] Performed By: #### 5 7021-8 #### [facility] CLIA [id number] [address] [place] [address]45 WBC (Bld) [#/Vol] 12.36 10*3/uL High 3.70-11.00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 Business (1) In 3 days In the event that this physician does not participate in your insurance network, please consult with your insurance company to find a nearby participating provider. Patient Education Materials: Lumbosacral Strain; Head Injury, Adult; Muscle Strain A MESSAGE TO ALL PATIENTS REGARDING OPIOIDS PRESCRIPTION OPIOIDS: WHAT YOU NEED TO KNOW Prescription opioids can be used to help relieve ywfsjhay-yp-xdmfnj pain and are often prescribed following a [...] Visit www.cdc.gov/drugov (more content not included)... Normal [facility] ED Traumaon 03-08-2024 ED Trauma [id number]#[id number] 0TIFF Normal [facility] MR Biliary ducts and Pancrea tic duct WO and W contrast Ramón 03-08-2024 * * *Final Report* * * DATE OF EXAM: Mar 08 2024 11:04AM [facility] 0730 - MRI PANC/TANMAY WO/W IVCON [...] DATE OF EXAM: Mar 08 2024 11:04AM [facility] 0730 - MRI PANC/TANMAY WO/W IVCON [...] not definitively communicate with the pancreatic ducts. [employer] Department Chair: PSCSilvestre Transcribe Date/Time: Mar 08 2024 1:37P Dictated by : TAVARES PENA MD This examination was interpreted and the report reviewed and electronically signed by: SUN LOREDO MD on Mar 08 2024 3:08PM [facility] MR Unspecified body region 3 D post processingon 03-08-2024 * * *Final Report* * * DATE OF EXAM: Mar 08 2024 11:04AM [facility] 0280 - MRI 3D POST PROCESSING [...] Unremarkable. DIVISION OF RADIOLOGY Provider, [facility] - 03/08/2024 * * *Final Report* * * DATE OF EXAM: Mar 08 2024 11:04AM [facility] 0280 - MRI 3D POST PROCESSING [...] not definitively communicate with the pancreatic ducts. [employer] Department Chair: PSCB Transcribe Date/Time: Mar 08 2024 1:37P Dictated by : TAVARES PENA MD This examination was interpreted and the report reviewed and electronically signed by: SUN LOREDO MD on Mar 08 2024 3:08PM [facility] MRI 3D POST PROCESSINGon MRI 3D POST PROCESSING * * *Final Report * * * DATE OF EXAM: Mar 08 2024 11:04AM [facility] 0280 - MRI 3D POST PROCESSING [...] not definitively communicate with the pancreatic ducts. [employer] Department Chair: WILLIAM Transcribe Date/Time: Mar 08 2024 1:37P Dictated by : TAVARES PENA MD This examination was interpreted and the report reviewed and electronically signed by: SUN LOREDO MD on Mar 08 2024 3:08PM EST [id number] Normal [facility] MRI PANC/TANMAY WO/W IVCONon MRI PANC/TANMYA WO/W IVCON * * *Final Report* * * DATE OF EXAM: Mar 08 2024 11:04AM [facility] 0730 - MRI PANC/TANMAY WO/W IVCON [...] not definitively communicate with the pancreatic ducts. [employer] Department Chair: WILLIAM Transcribe Date/Time: Mar 08 2024 1:37P Dictated by : TAVARES PENA MD This examination was interpreted and the report reviewed and electronically signed by: SUN LOREDO MD on Mar 08 2024 3:08PM EST [id number] Normal [facility] No Panel Informationon 03-08 IMPRESSION: Stable cystic structure inferior to the pancreatic body when compared to 08/18/2023. No worrisome features. This remains indeterminate and does not definitively communicate with the pancreatic ducts. [employer] Department Chair: PSCB Transcribe Date/Time: Mar 08 2024 1:37P Dictated by : TAVARES PENA MD This examination was interpreted and the report reviewed and electronically signed by: SUN LOREDO MD on Mar 08 2024 3:08PM EST DIVISION OF RADIOLOGY Radiology Study observation (narrative) [facility] No Panel InformationOrdered By: [facility]cf Provider on 03-08-2024 [facility] Prescriptions/Work Noteson 0 03-08-2024 Prescriptions/Work Notes [id number]#1.0 0TIFF Normal [facility] Comprehensive metabolic 2000 panelon 02-25-2024 Albumin [Mass/Vol] 4.5 g/dL Normal 3.9-4.9 [facility] Comment on above: Order Comment: Speci men Type: BLOOD SPECIMENOrdering Facility: [facility] Address: [address] [place] [address] Performed By: #### 2 4323-8 ####[facility] LABCLIA [id number] [place] [address] ALP [Catalytic activity/Vol] 76 U/L Normal 34-[address] [facility] Comment on above: Order Comment: Speci men Type: BLOOD SPECIMENOrdering Facility: [facility] Address: [address] [place] [address] Performed By: #### 2 4323-8 ####[facility] LABCLIA [id number] [place] [address] ALT [Catalytic activity/Vol] 14 U/L Normal 7-[address] [facility] Comment on above: Order Comment: Speci men Type: BLOOD SPECIMENOrdering Facility: [facility] Address: [address] [place] [address] Performed By: #### 2 4323-8 ####[facility] LABCLIA [id number] [place] [address] Anion gap [Moles/Vol] 8 mmol/L Normal 8-15 [facility] Comment on above: Order Comment: Speci men Type: BLOOD SPECIMENOrdering Facility: [facility] Address: [address] [place] [address] Performed By: #### 2 4323-8 ####[facility] LABIA [id number] [place] [address] AST [Catalytic activity/Vol] 20 U/L Normal 13-[address] [facility] Comment on above: Order Comment: Speci men Type: BLOOD SPECIMENOrdering Facility: [facility] Address: [address] [place] [address] Performed By: #### 2 4323-8 ####[facility] LABCLIA [id number] [place] [address] Bilirubin [Mass/Vol] 0.3 mg/dL Normal 0.2-1.3 [facility] Comment on above: Order Comment: Speci men Type: BLOOD SPECIMENOrdering Facility: [facility] Address: [address] [place] [address] Performed By: #### 2 4323-8 ####[facility] LABCLIA [id number] [place] [address] Calcium [Mass/Vol] 10.5 mg/dL High 8.5-10.2 [facility] Comment on above: Order Comment: Speci men Type: BLOOD SPECIMENOrdering Facility: [facility] Address: [address] [place] [address] Performed By: #### 2 4323-8 ####[facility] LABCLIA [id number] [place] [address] Chloride [Moles/Vol] 107 mmol/L Normal 98-107 [facility] Comment on above: Order Comment: Speci men Type: BLOOD SPECIMENOrdering Facility: [facility] Address: [address] [place] [address] Performed By: #### 2 4323-8 ####[facility] LABCLIA [id number] [place] [address] CO2 [Moles/Vol] 27 mmol/L Normal 22-[address] [facility] Comment on above: Order Comment: Speci men Type: BLOOD SPECIMENOrdering Facility: [facility] Address: [address] [place] [address] Performed By: #### 2 4323-8 ####[facility] LABCLIA [id number] [place] [address] Creatinine [Mass/Vol] 0.68 mg/dL Normal 0.58-0.96 [facility] Comment on above: Order Comment: Philip valencia Type: BLOOD SPECIMENOrdering Facility: [facility] Address: [address] [id number] Performed By: #### 2 4323-8 ####[facility] LABCLIA [id number] [place] [address] Creatinine and Glomerular filtration rate.predicted panel (S/P/Bld) 117 mL/min/1.73m??? Normal >=[address] [facility] Comment on above: Order Comment: Speci men Type: BLOOD SPECIMENOrdering Facility: [facility] Address: [address] [place] [address] Result Comment: Brenda mated Glomerular Filtration Rate [...] 4323-8 ####[facility] LABCLIA [id number] [place] [address] Glucose [Mass/Vol] 98 mg/dL Normal 74-99 [facility] Comment on above: Order Comment: Philip valencia Type: BLOOD SPECIMENOrdering Facility: [facility] Address: [address] [id number] Result Comment: The [place] Diabetes Association (ADA) provides guidance for cutoff [...] Standards of Medical Care in Diabetes 2016, [place] Diabetes Association. Diabetes Care. 2016.39(Suppl 1). Performed By: #### 2 4323-8 ####[facility] LABCLIA [id number] [place] [address] Potassium [Moles/Vol] 4.5 mmol/L Normal 3.7-5.1 [facility] Comment on above: Order Comment: Speci men Type: BLOOD SPECIMENOrdering Facility: [facility] Address: [address] [place] [address] Performed By: #### 2 4323-8 ####[facility] LABCLIA [id number] [place] [address] Protein [Mass/Vol] 7.3 g/dL Normal 6.3-8.0 [facility] Comment on above: Order Comment: Speci men Type: BLOOD SPECIMENOrdering Facility: [facility] Address: [address] [place] [address] Performed By: #### 2 4323-8 ####[facility] LABCLIA [id number] [place] [address] Sodium [Moles/Vol] 142 mmol/L Normal 136-144 [facility] Comment on above: Order Comment: Speci men Type: BLOOD SPECIMENOrdering Facility: [facility] Address: [address] [place] [address] Performed By: #### 2 4323-8 ####[facility] LABCLIA [id number] [place] [address] Urea nitrogen [Mass/Vol] 10 mg/dL Normal 7-[address] [facility] Comment on above: Order Comment: Speci men Type: BLOOD SPECIMENOrdering Facility: [facility] Address: [address] [place] [address] Performed By: #### 2 4323-8 ####[facility] LABCLIA [id number] [place] [address] HCV Ab Ser Qlon 02-25-2024 HCV Ab Ql (S) Negative Normal Negative [facility] Comment on above: Order Comment: Speci men Type: BLOOD SPECIMENOrdering Facility: [facility] Address: [address] [place] [address] Result Comment: The result suggests no evidence of active infection with Hepatitis C virus. Should recent infection be suspected, repeat testing may be considered 4-6 weeks after this draw. Performed By: #### 1 6128-1 ####[facility] LABCLIA [id number] [place] [address] [place] HIV 1+2 Ab IA Qlon 4 HIV 1 and 2 Ab IA.rapid Nom (S/P/Bld) Normal [facility] Comment on above: Order Comment: Speci men Type: BLOOD SPECIMEN [facility] Address: [address] [place] [address] Result Comment: Test not indicated. Performed By: #### 5 5454-3 #### [facility] LAB CLIA [id number] [address] [place] [address] [place] HIV 1+2 Ab+HIV1 p24 Ag IA Ql Non-Reactive Normal Nonreactive [facility] Comment on above: Order Comment: Speci men Type: BLOOD SPECIMEN [facility] Address: [address] [place] [address] Performed By: #### 5 5454-3 #### [facility] CLIA [id number] [address] [place] [address] [place] HIV immunoassay testing algorithm interpretation (S/P/Bld) [Interp] Normal [facility] Comment on above: Order Comment: Speci men Type: BLOOD SPECIMEN [facility] Address: [address] [place] [address] Result Comment: No e vidence of HIV-1 or HIV-2 infection. Should recent infection be suspected, repeat testing may be considered 2-3 weeks after this draw. [place] Rev. Code 3701.243(E): This information has been [...] diagnoses. Performed By: #### 5 5454-3 #### [facility] CLIA [id number] [address] [place] [address] [place] HbA1c (Bld)on 02-25-2024 Average glucose Estimated from glycated hemoglobin (Bld) [Mass/Vol] 111 mg/dL Normal [facility] Comment on above: Order Comment: Philip birmingham Type: BLOOD SPECIMEN [facility] Address: [address] [place] [address] Result Comment: eAG: (Estimated average glucose) is a calculated value from HgbA1c and is loss control representative of the average blood glucose level in the last 2-3 month period. Performed By: #### 5 5454-3 #### [facility] CLIA [id number] [address] [place] [address] [place] HbA1c (Bld) [Mass fraction] 5.5 % Normal 4.3-5.[address] [facility] Comment on above: Order Comment: Philip birmingham Type: BLOOD SPECIMEN [facility] Address: [address] [place] [address] Result Comment: Amer ican Diabetes Association guidelines indicate that patients with HgbA1c in the range 5.7-6.4% are at increased risk for development of diabetes, and intervention by lifestyle modification may be beneficial. HgbA1c greater or equal to 6.5% is considered diagnostic of diabetes. Performed By: #### 5 5454-3 #### [facility] CLIA [id number] [address] [place] [address] [place] Lipid 1996 panelon 4 Cholesterol [Mass/Vol] 142 mg/dL Normal <200 [facility] Comment on above: Order Comment: Philip birmingham Type: BLOOD SPECIMEN [facility] Address: [address] [place] [address] Result Comment: <200 mg/dL, Desirable 200-239 mg/dL, Borderline high >239 mg/dL, High Performed By: #### 5 5454-3 #### [facility] CLIA [id number] [facility] [address] [place] Cholesterol in HDL [Mass/Vol] 72 mg/dL Normal >[address] [facility] Comment on above: Order Comment: Speci men Type: BLOOD SPECIMEN [facility] Address: [address] [place] [address] Result Comment: 40-5 9 mg/dL, Acceptable >59 mg/dL, High: Negative risk factor for coronary heart disease <40 mg/dL, Low: Positive risk factor for coronary heart disease Performed By: #### 5 5454-3 #### [facility] CLIA [id number] [address] [place] [address] [place] Cholesterol in LDL [Mass/Vol] 60 mg/dL Normal <[address] [facility] Comment on above: Order Comment: Philip birmingham Type: BLOOD SPECIMEN [facility] Address: [address] [place] [address] Result Comment: <100 mg/dL, Optimal 100-129 mg/dL, Near optimal/above optimal 130-159 mg/dL, Borderline high 160-189 mg/dL, High >189 mg/dL, Very high Secondary prevention optimal LDL Cholesterol levels are recommended to be < 70 mg/dL Performed By: #### 5 5454-3 #### [facility] CLIA [id number] [address] [place] [address] [place] Cholesterol in LDL/Cholesterol in HDL [Mass ratio] 0.83 {ratio} Normal <2.[address] [facility] Comment on above: Order Comment: Philip men Type: BLOOD SPECIMEN [facility] Address: [address] [place] [address] Result Comment: Refe neoce: 1. National Cholesterol Education Program ATP III Guideline At-A-Glance Quick Desk Reference: National Heart, Lung, and Blood [place]. National Institutes of Health. 2001: NIH Publication No. 01-3305. 2. An International Atherosclerosis Society position paper: global recommendations for the management of dyslipidemia: executive summary, Atherosclerosis. 2014: 232(2):410-413. Performed By: #### 5 5454-3 #### [facility] CLIA [id number] [address] [place] [address] [place] Cholesterol in VLDL [Mass/Vol] 10 mg/dL Normal <[address] [facility] Comment on above: Order Comment: Philip birmingham Type: BLOOD SPECIMEN [facility] Address: [address] [place] [address] Performed By: #### 5 5454-3 #### [facility] CLIA [id number] [address] [place] [address] [place] Cholesterol non HDL [Mass/Vol] 70 mg/dL Normal <[address] [facility] Comment on above: Order Comment: Philip birmingham Type: BLOOD SPECIMEN [facility] Address: [address] [place] [address] Result Comment: <130 mg/dL, Optimal 130-159 mg/dL, Near optimal/above optimal 160-189 mg/dL, Borderline high 190-219 mg/dL, High >219 mg/dL, Very high Secondary prevention optimal non HDL Cholesterol levels are recommended to be <100 mg/dL Performed By: #### 5 5454-3 #### [facility] CLIA [id number] [address] [place] [address] [place] Cholesterol.total/Chol esterol in HDL [Mass ratio] 1.97 {ratio} Normal <5.[address] [facility] Comment on above: Order Comment: Philip birmingham Type: BLOOD SPECIMEN [facility] Address: [address] [place] [address] Performed By: #### 5 5454-3 #### [facility] CLIA [id number] [address] [place] [address] [place] FASTING TIME 12 hrs Normal [facility] Comment on above: Order Comment: Speci men Type: BLOOD SPECIMEN [facility] Address: [address] [place] [address] Performed By: #### 5 5454-3 #### [facility] CLIA [id number] [address] [place] [address] [place] Triglyceride [Mass/Vol] 51 mg/dL Normal <[address] [facility] Comment on above: Order Comment: Speci men Type: BLOOD SPECIMEN [facility] Address: [address] [place] [address] Result Comment: <150 mg/dL, Normal 150-199 mg/dL, Borderline high 200-499 mg/dL, High >499 mg/dL, Very high Performed By: #### 5 5454-3 #### [facility] CLIA [id number] [address] [place] [address] [place] CBC with Diffon 01-13-2024 Abs. Basophil 0.08 k/uL Normal 0.00-0.20 [facility] Comment on above: Performed By: #### F VALERIO TO FERI #### [employer] [address] [place] [address] [employer] Machine Operator: Harpal Adair MD Abs.Imm.Granulocyte 0.05 k/uL Normal 0.00-0.30 [facility] Comment on above: Performed By: #### F VALERIO TO, FERI #### [employer] [address] [place] [address] [employer] Operator: Harpal Adair MD Abs.Neutrophil (Seg) 7.68 k/uL Normal 1.50-8.10 [facility] Comment on above: Performed By: #### F VALERIO TO, FERI #### [employer] [address] [place] [address] [employer] Operator: Harpal Adair MD Basophils/100 WBC (Bld) 1 % Normal 0-2 [facility] Comment on above: Performed By: #### F EBC CDP, FERI #### [facility] [address] [place] [address] [employer] Operator: Harpal Adair MD Eosinophils (Bld) [#/Vol] 0.25 10*3/uL Normal 0.00-0.44 [facility] Comment on above: Performed By: #### F EBC, CDP, FERI #### [facility] [address] [place] [address] [employer] Operator: Harpal Adari MD Eosinophils/100 WBC (Bld) 2 % Normal 1-4 [facility] Comment on above: Performed By: #### F EBC, CDP, FERI #### [facility] [address] [place] [address] [employer] Operator: Harpal Adair MD Erythrocyte distribution width (RBC) [Ratio] 18.6 % High 11.8-14.4 [facility] Comment on above: Performed By: #### F EBC CDP, FERI #### [facility] [address] [place] [address] [employer] Operator: Harpal Adair MD Hematocrit (Bld) [Volume fraction] 36.7 % Normal 36.3-47.1 [facility] Comment on above: Performed By: #### F EBC, CDP, FERI #### [facility] [address] [place] [address] [employer] Operator: Harpal Adair MD Hemoglobin (Bld) [Mass/Vol] 11.3 g/dL Low 11.9-15.1 [facility] Comment on above: Performed By: #### F EBC, CDP, FERI #### [facility] [address] [place] [address] [employer] Operator: Harpal Adair MD Immature granulocytes/100 WBC (Bld) 0 % Normal 0 [facility] Comment on above: Performed By: #### F EBC CDP, FERI #### [address] [address] [employer] Operator: Harpal Adair MD Lymphocytes (Bld) [#/Vol] 2.30 10*3/uL Normal 1.10-3.70 [facility] Comment on above: Performed By: #### F EBC, CDP, FERI #### [facility] [address] [place] [address] [employer] Operator: Harpal Adair MD Lymphocytes/100 WBC (Bld) 21 % Low 24-43 [facility] Comment on above: Performed By: #### F EBC CDP, FERI #### [address] [address] [employer] Operator: Harpal Adair MD MCH (RBC) [Entitic mass] 28.4 pg Normal 25.2-33.5 [facility] Comment on above: Performed By: #### F EBC CDP, FERI #### [address] [address] [employer] Operator: Harpal Adair MD MCHC (RBC) [Mass/Vol] 30.8 g/dL Normal 28.4-34.8 [facility] Comment on above: Performed By: #### F EBC CDP, FERI #### [facility] [address] [place] [address] [employer] Operator: Harpal Adair MD MCV (RBC) [Entitic vol] 92.2 fL Normal 82.6-102.9 [facility] Comment on above: Performed By: #### F EBC, CDP, FERI #### [facility] [address] [place] [address] [employer] Operator: Harpal Adair MD Monocytes (Bld) [#/Vol] 0.77 10*3/uL Normal 0.10-1.20 [facility] Comment on above: Performed By: #### F EBC CDP, FERI #### [address] [address] [employer] Operator: Harpal Adair MD Monocytes/100 WBC (Bld) 7 % Normal 3-12 [facility] Comment on above: Performed By: #### F EBC, CDP, FERI #### [facility] [address] [place] [address] [employer] Operator: Harpal Adair MD Neutrophil (Seg) 69 % High 36-65 [facility] Comment on above: Performed By: #### F EBC, CDP, FERI #### [address] [address] [employer] Operator: Harpal Adair MD NRBC Automated 0.0 per 100 WBC Normal 0.0 [facility] Comment on above: Performed By: #### F EBC CDP, FERI #### [address] [address] [employer] Operator: Harpal Adair MD Platelet mean volume (Bld) [Entitic vol] 11.4 fL Normal 8.1-13.5 [facility] Comment on above: Performed By: #### F EBC, CDP, FERI #### [facility] [address] [place] [address] [employer] Operator: Harpal Adair MD Platelets (Bld) [#/Vol] 387 10*3/uL Normal 138-453 [facility] Comment on above: Performed By: #### F EBC, CDP, FERI #### [facility] [facility] [address] [place] [address] Hot Dimpling Machine Operator: Harpal Adair MD RBC (Bld) [#/Vol] 3.98 10*6/uL Normal 3.95-5.11 [facility] Comment on above: Performed By: #### F EBC, CDP, FERI #### [facility] [address] [place] [address] Hot Dimpling Machine Operator: Harpal Adair MD RBC morphology finding Nom (Bld) ANISOCYTOSIS PRESENT Normal [facility] Comment on above: Performed By: #### F EBC, CDP, FERI #### [facility] [address] [place] [address] Hot Dimpling Machine Operator: Harpal Adair MD WBC (Bld) [#/Vol] 11.1 10*3/uL Normal 3.5-11.3 [facility] Comment on above: Performed By: #### F EBC, CDP, FERI #### [address] [address] Hot Dimpling Machine Operator: Harpal Adair MD Ferritinon 01-13-2024 Ferritin [Mass/Vol] 9 ng/mL Low 13-150 [facility] Comment on above: Result Comment: FERRITIN Reference Ranges: Adult Males 20 - 60 years: 30 - 400 ng/mL Adult females 17 - 60 years: 13 - 150 ng/mL Adults greater than 60 years: no established reference range Pediatrics: no established reference range Performed By: #### F EBC, CDP, FERI #### [address] [address] Hot Dimpling Machine Operator: Harpal Adair MD Iron Binding Cap.on 01-13-20 24 % Fe Saturation 9 % Low 20-55 [facility] Comment on above: Performed By: #### F EBC, CDP, FERI #### [facility] [address] [place] [address] Hot Dimpling Machine Operator: Harpal Adair MD Iron [Mass/Vol] 37 ug/dL Normal 37-145 [facility] Comment on above: Performed By: #### F EBC, CDP, FERI #### [facility] [address] [place] [address] [place] [address] Hot Dimpling Machine Operator: Harpal Adair MD Total Fe Binding Cap 390 ug/dL Normal 250-450 [facility] Comment on above: Performed By: #### F EBC, CDP, FERI #### [facility] [address] [place] [address] Hot Dimpling Machine Operator: Harpal Adair MD Unbound Fe Bind Cap 353 ug/dL High 112-347 [facility] Comment on above: Performed By: #### F EBC, CDP, FERI #### [facility] [address] [place] [address] Hot Dimpling Machine Operator: MD Ernesto Naylor 01-05-[address] [facility] Telephone ([facility]) SHAZIA CHOU ([id number]) 1990 F Date Time Provider Department 01/05/24 ELIA BAIRES [facility] During your visit today, we [...] 60 mg by mouth once daily. - [id number]-fmn-nbiz-[id number] A-vit K (BARIATRIC MULTIVITAMINS) 45 mg iron- [...] Status:Closed by ELIA BAIRES on 01/05/[address] [facility] TOXICOLOGY SCRN W/CONF,URINE on 01-05-2024 Amphetamines Confirm (U) [Mass/Vol] Negative Negative [facility] Comment on above: Cutoff threshold at 1000 ng/mL. Barbiturates Urine Negative Negative [facility] Comment on above: Cutoff threshold at 200 ng/mL. Benzodiazepines Urine Negative Negative [facility] Comment on above: Cutoff threshold at 200 ng/mL. Cannabinoids Screen Ql (U) Sent for confirmation Abnormal Negative [facility] Comment on above: Cutoff threshold at 50 ng/mL. Cocaine Ql (U) Negative Negative [facility] Comment on above: Cutoff threshold at 300 ng/mL. Ethanol (U) [Mass/Vol] mg/dL NINF - 11 mg/dL [facility] Interpretation and review of laboratory results Abnormal [facility] Opiates Screen Ql (U) Negative Negative [facility] Comment on above: Cutoff threshold at 300 ng/mL. oxyCODONE cutoff Screen (U) [Mass/Vol] Negative Negative [facility] Comment on above: Cutoff threshold at 100 ng/mL. Phencyclidine Ql (U) Negative Negative [facility] Comment on above: Cutoff threshold at 25 ng/mL. Immunoassay screen only. Cross reactivity with other substances can occur with immunoassay screening. Detection of any drug(s) in this urine toxicology panel is presumptive only. These tests are for medical purposes only and should not be used for compliance monitoring, legal, or forensic use. [facility] CANNABINOID CONF, URon 01-03 Cannabinoids Confirm (U) [Mass/Vol] 153 ng/mL High <[address] [facility] Comment on above: Order Comment: Speci men Type: URINE SPECIMENOrdering Facility: [facility] Address: [address] [place] [address] Result Comment: Tetr ahydrocannabinol carboxylic acid (THCA) is a metabolite of imjbf-1-gbswqpjqevwooscqtxpa which is the main active component of marijuana. Presence of THCA indicates use of marijuana. Performed By: #### C ANNCONFU ####[facility] LABCLIA [id number] [place] [address] [place] NOTE ([facility]) Normal [facility] Comment on above: Order Comment: Speci men Type: URINE SPECIMENOrdering Facility: [facility] Address: [address] [place] [address] Result Comment: This test is for medical use only. This test was developed and its performance characteristics determined by [facility]'s [facility] [place] ([facility]). It has not been cleared or approved by the FDA. -[facility] is regulated under CLIA as qualified to perform high-complexity testing. This test is used for clinical purposes. It should not be regarded as investigational or for research. Performed By: #### C [facility]CONFL[facility] ####[facility] LABCLIA [id number] [address] CNOVon 01-04-2024 CNOV Office Visit (FPNRMO C) SHAZIA CHOU ([id number]) 1990 F Date Time Provider Department 01/04/24 9:20 AM ELIA BAIRES [facility] During your visit today, we [...] She says that she is originally from [facility] however came up to here today [...] to establish with a new psychiatrist at [facility] in [place]. She also sees a counselor weekly. Current [...] in 1 (more content not included)... Normal [facility] SPECIMEN VALIDITY, URINEon 0 01-04-2024 CHROMATE,URINE <10 Normal <[address] [facility] Comment on above: Order Comment: Speci men Type: URINE SPECIMENOrdering Facility: [facility] Address: [address] [place] [address] Performed By: #### L [id number] ####[facility] LABCLIA [id number] [facility] [id number] [address] [place] CREATININE,URINE 33.7 mg/dL Normal 20.0-300.0 [facility] Comment on above: Order Comment: Speci men Type: URINE SPECIMENOrdering Facility: [facility] Address: [address] [place] [address] Performed By: #### L [id number] ####[facility] LABCLIA [id number] [place] [id number] [place] NITRITES,URINE <50 Normal <[address] [facility] Comment on above: Order Comment: Speci men Type: URINE SPECIMENOrdering Facility: [facility] Address: [address] [place] [id number] Performed By: #### L [id number] ####[facility] LABCLIA [id number] [place] [address] [place] OXIDANTS,URINE 70 mg/L Normal <[address] [facility] Comment on above: Order Comment: Speci men Type: URINE SPECIMENOrdering Facility: [facility] Address: [address] [place] [address] Performed By: #### L [id number] ####[facility] LABCLIA [id number] [place] [address] [place] pH (U) 5.6 [pH] Normal 4.5-8.[address] [facility] Comment on above: Order Comment: Speci men Type: URINE SPECIMENOrdering Facility: [facility] Address: [address] [place] [address] Performed By: #### L [id number] ####[facility] LABCLIA [id number] [place] [id number] [place] SPEC GRAVITY,UR 1.019 Normal 1.003-1.035 [facility] Comment on above: Order Comment: Speci men Type: URINE SPECIMENOrdering Facility: [facility] Address: [address] [place], [place] [address] Performed By: #### L [id number] ####[facility] LABCLIA [id number] [place] [address] [place] SPECIMEN VALIDITY QUALITY Specimen quality results within acceptable limits Normal [facility] Comment on above: Order Comment: Speci men Type: URINE SPECIMENOrdering Facility: [facility] Address: [address] [place] [address] Performed By: #### L [id number] ####[facility] LABCLIA [id number] [place] [address] [place] TOXICOLOGY SCRN W/CONF,URINE on 01-04-2024 Amphetamines Confirm (U) [Mass/Vol] Negative Normal Negative [facility] Comment on above: Order Comment: Speci men Type: URINE SPECIMENOrdering Facility: [facility] Address: [address] [place] [address] Result Comment: Cuto ff threshold at 1000 ng/mL. Performed By: #### U TOXRF ####[facility] LABCLIA [id number] [place] [address] [place] BARBITURATES, URINE Negative Normal Negative [facility] Comment on above: Order Comment: Speci men Type: URINE SPECIMENOrdering Facility: [facility] Address: [address] [place] [address] Result Comment: Cuto ff threshold at 200 ng/mL. Performed By: #### U TOXRF ####[facility] LABCLIA [id number] [place] [address] [place] BENZODIAZEPINES, UR Negative Normal Negative [facility] Comment on above: Order Comment: Speci men Type: URINE SPECIMENOrdering Facility: [facility] Address: [address] [place] [address] Result Comment: Cuto ff threshold at 200 ng/mL. Performed By: #### U TOXRF ####[facility] LABCLIA [id number] [place] [address] [place] Cannabinoids Screen Ql (U) Sent for confirmation Abnormal Negative [facility] Comment on above: Order Comment: Speci men Type: URINE SPECIMENOrdering Facility: [facility] Address: [address] [place] [address] Result Comment: Cuto ff threshold at 50 ng/mL. Performed By: #### U TOXRF ####[facility] LABCLIA [id number] [place] [address] [place] Cocaine Ql (U) Negative Normal Negative [facility] Comment on above: Order Comment: Speci men Type: URINE SPECIMENOrdering Facility: [facility] Address: [address] [place] [address] Result Comment: Cuto ff threshold at 300 ng/mL. Performed By: #### U TOXRF ####[facility] LABCLIA [id number] [place] [address] [place] Ethanol (U) [Mass/Vol] <11 Normal <11 [facility] Comment on above: Order Comment: Speci men Type: URINE SPECIMENOrdering Facility: [facility] Address: [address] [place] [address] Performed By: #### U TOXRF ####[facility] LABCLIA [id number] [place] [address] [place] Opiates Screen Ql (U) Negative Normal Negative [facility] Comment on above: Order Comment: Speci men Type: URINE SPECIMENOrdering Facility: [facility] Address: [address] [place] [address] Result Comment: Cuto ff threshold at 300 ng/mL. Performed By: #### U TOXRF ####[facility] LABCLIA [id number] [place] [address] [place] oxyCODONE cutoff Screen (U) [Mass/Vol] Negative Normal Negative [facility] Comment on above: Order Comment: Speci men Type: URINE SPECIMENOrdering Facility: [facility] Address: [address] [place] [address] Result Comment: Cuto ff threshold at 100 ng/mL. Performed By: #### U TOXRF ####[facility] LABCLIA [id number] [place] [address] [place] Phencyclidine Ql (U) Negative Normal [facility] Comment on above: Order Comment: Speci men Type: URINE SPECIMENOrdering Facility: [facility] Address: [address] [place] [address] Result Comment: Cuto ff threshold at 25 ng/mL. Performed By: #### U TOXRF ####[facility] LABCLIA [id number] [place] [address] [place] ED Noteon 2023 ED Note [id number]#1.00T IFF Normal [facility] Activated partial thrombopla stin time (aPTT) in platelet poor plasma by coagulation aOrdered By: Marii Christiansen on 12-10-2023 aPTT Coag (PPP) [Time] 28.8 s 25.1-36.5 [facility] Comment on above: A hematocrit value g reater than 55% may lead to inaccurate results in coagulation testing. Patients having hematocrit values >55% require a special collection tube for coagulation studies. Please contact the laboratory at [phone] for redraw instructions. Basophils Auto (Bld) [#/Vol] Ordered By: Marii Christiansen on 12-10-2023 Basophils (Bld) [#/Vol] 0.1 10*3/uL 0.0-0.2 [facility] Basophils/100 WBC Auto (Bld) Ordered By: Marii Christiansen on 12-10-2023 Basophils/100 WBC (Bld) 1.0 % . [facility] Calcium [Mass/volume] in Ser um or PlasmaOrdered By: Marii Christiansen on 12-10-2023 Calcium [Mass/Vol] 9.3 mg/dL 8.6-10.3 [facility] Carbon dioxide, total [Moles /volume] in Serum or PlasmaOrdered By: Marii Christiansen on 12-10-2023 CO2 [Moles/Vol] 26.2 mmol/L 21.0-31.0 [facility] Chloride [Moles/volume] in S tushar or PlasmaOrdered By: Marii Christiansen on 12-10-2023 Chloride [Moles/Vol] 108 mmol/L 98-107 [place] Choriogonadotropin.beta subu nit [Units/volume] in Serum or PlasmaOrdered By: Marii Christiansen on 12-10-2023 HCG.beta subunit Qn Negative [facility] Creatine kinase [Enzymatic a ctivity/volume] in Serum or PlasmaOrdered By: Marii Christiansen on 12-10-2023 CK [Catalytic activity/Vol] 90 U/L 30-223 [facility] Creatinine [Mass/volume] in Serum or PlasmaOrdered By: Marii Christiansen on 12-10-2023 Creatinine [Mass/Vol] 0.63 mg/dL 0.60-1.20 [facility] Eosinophils Auto (Bld) [#/Vo l]Ordered By: Marii Christiansen on 12-10-2023 Eosinophils (Bld) [#/Vol] 0.1 10*3/uL 0.0-0.45 [facility] Eosinophils/100 WBC Auto (Bl d)Ordered By: Marii Christiansen on 12-10-2023 Eosinophils/100 WBC (Bld) 1.7 % . [facility] Erythrocyte distribution wid th Auto (RBC) [Ratio]Ordered By: Marii Christiansen on 12-10-2023 Erythrocyte distribution width (RBC) [Ratio] 18.2 % 11.9-15.3 [facility] Glucose [Mass/volume] in Ser um or PlasmaOrdered By: Marii Christiansen on 12-10-2023 Glucose [Mass/Vol] 84 mg/dL 70-100 [facility] Comment on above: ADA recommended refe rence rangeRandom Glucose Reference Range is dependent on time and content of last meal. Glucose of more than 200 mg/dL in a nonstressed, ambulatory subject supports the diagnosis of Diabetes Mellitus. Hematocrit Auto (Bld) [Volum e fraction]Ordered By: Marii Christiansen on 12-10-2023 Hematocrit (Bld) [Volume fraction] 34.4 % 34.0-46.4 [facility] Hemoglobin [Mass/volume] in BloodOrdered By: Marii Christiansen on 12-10-2023 Hemoglobin (Bld) [Mass/Vol] 11.2 g/dL 11.8-15.4 [facility] INR in Platelet poor plasma by Coagulation assayOrdered By: Marii Christiansen on 12-10-2023 INR Coag (PPP) [Relative time] 1.0 {INR} [facility] Comment on above: INR Therapeutic Rang [...] RBC Auto (Bld) [#/Vol] 7.1 10*3/uL 3.8-11.6 [facility] Lymphocytes Auto (Bld) [#/Vo l]Ordered By: Marii Christiansen on 12-10-2023 Lymphocytes (Bld) [#/Vol] 1.6 10*3/uL 1.00-4.8 [facility] Lymphocytes/100 WBC Auto (Bl d)Ordered By: Marii Christiansen on 12-10-2023 Lymphocytes/100 WBC (Bld) 21.9 % . [facility] MCH Auto (RBC) [Entitic mass ]Ordered By: Marii Christiansen on 12-10-2023 MCH (RBC) [Entitic mass] 28.8 pg 24.7-34.3 [facility] MCHC Auto (RBC) [Mass/Vol]Or dered By: Marii Christiansen on 12-10-2023 MCHC (RBC) [Mass/Vol] 32.5 g/dL 32.0-35.0 [facility] MCV Auto (RBC) [Entitic vol] Ordered By: Marii Christiansen on 12-10-2023 MCV (RBC) [Entitic vol] 88.7 fL 80-100 [facility] Magnesium [Mass/volume] in S tushar or PlasmaOrdered By: Marii Christiansen on 12-10-2023 Magnesium [Mass/Vol] 1.9 mg/dL 1.9-2.7 [place] Monocyte distribution width [Entitic volume] in Blood by AutomatedOrdered By: Marii Christiansen on 12-10-2023 Monocyte distribution width Auto (Bld) [Entitic vol] 16.94 % 0.00-20.00 [facility] Monocytes Auto (Bld) [#/Vol] Ordered By: Marii Christiansen on 12-10-2023 Monocytes (Bld) [#/Vol] 0.5 10*3/uL 0.0-0.8 [facility] Monocytes/100 WBC Auto (Bld) Ordered By: Marii Christiansen on 12-10-2023 Monocytes/100 WBC (Bld) 6.4 % . [facility] Natriuretic peptide B [Mass/ Vol]Ordered By: Marii Christiansen on 12-10-2023 Natriuretic peptide B (Bld) [Mass/Vol] 12.0 pg/mL 5-100 [facility] Neutrophils Auto (Bld) [#/Vo l]Ordered By: Marii Christiansen on 12-10-2023 Neutrophils (Bld) [#/Vol] 4.9 10*3/uL 1.8-7.7 [facility] Neutrophils/100 WBC Auto (Bl d)Ordered By: Marii Christiansen on 12-10-2023 Neutrophils/100 WBC (Bld) 69.0 % . [facility] No Panel InformationOrdered By: Marii Christiansen on 12-10-2023 Estimated GFR (CKD-EPI) > 60.0 mL/Min [facility] Creatinine Clearance (Chem 144.76 [facility] Nucleated erythrocytes [Pres ence] in Blood by Automated countOrdered By: Marii Christiansen on 12-10-2023 Nucleated RBC Auto Ql (Bld) 0.1 /100{WBC} 0-0.5 [facility] Phosphate [Mass/volume] in S tushar or PlasmaOrdered By: Marii Christiansen on 12-10-2023 Phosphate [Mass/Vol] 3.7 mg/dL 2.5-4.5 [place] Platelet mean volume Auto (B ld) [Entitic vol]Ordered By: Marii Christiansen on 12-10-2023 Platelet mean volume (Bld) [Entitic vol] 9.2 fL 6.3-10.7 [facility] Platelets Auto (Bld) [#/Vol] Ordered By: Marii Christiansen on 12-10-2023 Platelets (Bld) [#/Vol] 331 10*3/uL 150-450 [facility] Potassium [Moles/volume] in Serum or PlasmaOrdered By: Marii Christiansen on 12-10-2023 Potassium [Moles/Vol] 4.0 mmol/L 3.5-5.1 [facility] Prothrombin time (PT)Ordered By: Marii Christiansen on 12-10-2023 PT Coag (PPP) [Time] 11.3 s 9.0-12.9 [place] Comment on above: A hematocrit value g reater than 55% may lead to inaccurate results in coagulation testing. Patients having hematocrit values >55% require a special collection tube for coagulation studies. Please contact the laboratory at [phone] for redraw instructions. RBC Auto (Bld) [#/Vol]Ordere d By: Marii Christiansen on 12-10-2023 RBC (Bld) [#/Vol] 3.88 10*6/uL 3.60-5.00 [facility] Serum or plasma anion gap de terminationOrdered By: Marii Christiansen on 12-10-2023 Anion gap [Moles/Vol] 9.8 mmol/L 6.0-15.0 [facility] Sodium [Moles/volume] in Ser um or PlasmaOrdered By: Marii Christiansen on 12-10-2023 Sodium [Moles/Vol] 140 mmol/L 136-145 [facility] Thyrotropin [Units/volume] i n Serum or PlasmaOrdered By: Marii Christiansen on 12-10-2023 TSH Qn 0.61 m[IU]/L 0.45-5.33 [facility] Thyroxine (T4) free [Mass/vo lume] in Serum or PlasmaOrdered By: Marii Christiansen on 12-10-2023 Free T4 [Mass/Vol] 0.82 ng/dL 0.61-1.12 [facility] Troponin I.cardiac [Mass/vol ume] in Serum or Plasma by Detection limit <= 0.01 ng/Ordered By: Marii Christiansen on 12-10-2023 Troponin I.cardiac DL <= 0.01 ng/mL [Mass/Vol] < 2.3 pg/mL 0.0-15.0 [facility] Urea nitrogen [Mass/volume] in Serum or PlasmaOrdered By: Marii Christiansen on 12-10-2023 Urea nitrogen [Mass/Vol] 14 mg/dL 04-07 [facility] WBC Auto (Bld) [#/Vol]Ordere d By: Marii Christiansen on 12-10-2023 WBC (Bld) [#/Vol] 7.1 10*3/uL 3.8-11.6 [facility] Consent for Treatmenton 11-13 Consent for Treatment [id number]#1.00T IFF Normal [facility] [place] Mamm Diag w/CAD if perf [...] very important to your health. The current [employer] and National Comprehensive Cancer [...] Category 1-Negative Recommendation: Normal interval follow-up Normal [facility] US Breast Unilateral Lt Comp leteon 12-09-2023 US Breast Unilateral Lt Complete Exam Date/Time: 12/09/2023 10:07 EDT Reason for Exam: [id number] Report PLEASE REFER TO THE MAMMOGRAM REPORT. Ordering Provider: Jennie Durand FINAL REPORT Dictated: 12/09/2023 4:28 pm Mychal Cabezas M.D. Signed (Electronic Signature): 12/09/2023 4:28 pm Signed by: Mychal Cabezas M.D. Transcribed by: MARCO Technologist: RUHT Normal [facility] Physician Orderon 12-08-2023 Physician Order [id number]#1.00 TIFF Normal [facility] CT ABDOMEN PELVIS W IV CONTR [...] Jacob Dillon DO 10/25/23 Final result Normal [facility] CBC panel Auto (Bld)on 08-31 Erythrocyte distribution width (RBC) [Ratio] 14.7 % Normal 11.5-15.0 [facility] Comment on above: Order Comment: Speci men Type: BLOOD SPECIMEN [facility] Address: [address] [place] [address] Performed By: #### 5 8410-2 #### [facility] CLIA [id number] [place] [address] [place] Hematocrit (Bld) [Volume fraction] 36.9 % Normal 36.0-46.0 [facility] Comment on above: Order Comment: Speci men Type: BLOOD SPECIMEN [facility] Facility[facility] Address: [address] [place] [address] Performed By: #### 5 8410-2 #### [facility] CLIA [id number] [address] [place] [address] [place] Hemoglobin (Bld) [Mass/Vol] 11.7 g/dL Normal 11.5-15.5 [facility] Comment on above: Order Comment: Speci men Type: BLOOD SPECIMEN [facility] Address: [address] [place] [address] Performed By: #### 5 8410-2 #### [facility] CLIA [id number] [address] [place] [address] [place] MCH (RBC) [Entitic mass] 29.8 pg Normal 26.0-34.0 [facility] Comment on above: Order Comment: Speci men Type: BLOOD SPECIMEN [facility] Address: [address] [place] [address] Performed By: #### 5 8410-2 #### [facility] CLIA [id number] [address] [place] [address] [place] MCHC (RBC) [Mass/Vol] 31.7 g/dL Normal 30.5-36.0 [facility] Comment on above: Order Comment: Speci men Type: BLOOD SPECIMEN [facility] Address: [address] [place] [address] Performed By: #### 5 8410-2 #### [facility] CLIA [id number] [address] [place] [address] [place] MCV (RBC) [Entitic vol] 93.9 fL Normal 80.0-100.0 [facility] Comment on above: Order Comment: Speci men Type: BLOOD SPECIMEN [facility] Address: [address] [place] [address] Performed By: #### 5 8410-2 #### [facility] CLIA [id number] [address] [place] [address] [place] Nucleated RBC (Bld) [#/Vol] 10*3/uL Normal <0.01 [facility] Comment on above: Order Comment: Speci men Type: BLOOD SPECIMEN [facility] Address: [address] [place] [address] Performed By: #### 5 8410-2 #### [facility] CLIA [id number] [address] [place] [address] [place] Platelet mean volume (Bld) [Entitic vol] 11.1 fL Normal 9.0-12.7 [facility] Comment on above: Order Comment: Speci men Type: BLOOD SPECIMEN Ordering Facility: [facility] Address: [address] [place] [address] Performed By: #### 5 8410-2 #### [facility] CLIA [id number] [address] [place] [address] [place] Platelets (Bld) [#/Vol] 297 10*3/uL Normal 150-400 [facility] Comment on above: Order Comment: Speci men Type: BLOOD SPECIMEN Ordering Facility: [facility] Address: [address] [place] [address] Performed By: #### 5 8410-2 #### [facility] CLIA [id number] [address] [place] [address] [place] RBC (Bld) [#/Vol] 3.93 10*6/uL Normal 3.90-5.[address] [facility] Comment on above: Order Comment: Speci men Type: BLOOD SPECIMEN Ordering Facility: [facility] Address: [address] [place] [address] Performed By: #### 5 8410-2 #### [facility] CLIA [id number] [address] [place] [address] [place] WBC (Bld) [#/Vol] 6.82 10*3/uL Normal 3.70-11.[address] [facility] Comment on above: Order Comment: Speci men Type: BLOOD SPECIMEN Ordering Facility: [facility] Address: [address] [place] [address] Performed By: #### 5 8410-2 #### [facility] CLIA [id number] [address] [place] [address] [place] Comprehensive metabolic 2000 panelon 08-31-2023 Albumin [Mass/Vol] 4.4 g/dL Normal 3.9-4.9 [facility] Comment on above: Order Comment: Speci men Type: BLOOD SPECIMEN Ordering Facility: [facility] Address: [address] [place] [address] Performed By: #### L IPNF, 71019-8 #### [facility] CLIA [id number] [address] [place] [address] [place] ALP [Catalytic activity/Vol] 75 U/L Normal 34-123 [facility] Comment on above: Order Comment: Speci men Type: BLOOD SPECIMEN Ordering Facility: [facility] Address: [address] [place] [address] Performed By: #### L IPNF, 21397-3 #### [facility] CLIA [id number] [address] [place] [address] [place] ALT [Catalytic activity/Vol] 16 U/L Normal 7-38 [facility] Comment on above: Order Comment: Speci men Type: BLOOD SPECIMEN Ordering Facility: [facility] Address: [address] [place] [address] Performed By: #### L IPNF, 55030-0 #### [facility] CLIA [id number] [address] [place] [address] [place] Anion gap [Moles/Vol] 11 mmol/L Normal 9-18 [facility] Comment on above: Order Comment: Speci men Type: BLOOD SPECIMEN Ordering Facility: [facility] Address: [address] [place] [address] Performed By: #### L IPNF, 50347-3 #### [facility] CLIA [id number] [address] [place] [address] [place] AST [Catalytic activity/Vol] 21 U/L Normal 13-35 [facility] Comment on above: Order Comment: Speci men Type: BLOOD SPECIMEN Ordering Facility: [facility] Address: [address] [place] [address] Performed By: #### L IPNF, #### [facility] CLIA [id number] [address] [place] [address] [place] Bilirubin [Mass/Vol] 0.2 mg/dL Normal 0.2-1.3 [facility] Comment on above: Order Comment: Speci men Type: BLOOD SPECIMEN Ordering Facility: [facility] Address: [address] [place] [address] Performed By: #### L IPNF, #### [facility] CLIA [id number] [address] [place] [address] [place] Calcium [Mass/Vol] 9.7 mg/dL Normal 8.5-10.2 [facility] Comment on above: Order Comment: Speci men Type: BLOOD SPECIMEN Ordering Facility: [facility] Address: [address] [place] [address] Performed By: #### L IPNF, #### [facility] CLIA [id number] [address] [place] [address] [place] Chloride [Moles/Vol] 106 mmol/L High 97-105 [facility] Comment on above: Order Comment: Speci men Type: BLOOD SPECIMEN Ordering Facility: [facility] Address: [address] [place] [address] Performed By: #### L IPNF, #### [facility] CLIA [id number] [address] [place] [address] [place] CO2 [Moles/Vol] 25 mmol/L Normal 22-30 [facility] Comment on above: Order Comment: Speci men Type: BLOOD SPECIMEN Ordering Facility: [facility] Address: [address] [place] [address] Performed By: #### L IPNF, #### [facility] CLIA [id number] [address] [place] [address] [place] Creatinine [Mass/Vol] 0.55 mg/dL Low 0.58-0.96 [facility] Comment on above: Order Comment: Speci men Type: BLOOD SPECIMEN Ordering Facility: [facility] Address: [address] [place] [address] Performed By: #### L SONALI, 08526-7 #### [facility] CLIA [id number] [address] [place] [address] [place] Creatinine and Glomerular filtration rate.predicted panel (S/P/Bld) 124 mL/min/1.73m??? Normal >=60 [facility] Comment on above: Order Comment: Philip birmingham Type: BLOOD SPECIMEN Ordering Facility: [facility] Address: [address] [place] [address] Result Comment: Brenda mated Glomerular Filtration Rate [...] actual GFR. Performed By: #### L SONALI, 85816-2 #### [facility] CLIA [id number] [address] [place] [address] [place] Glucose [Mass/Vol] 93 mg/dL Normal 74-99 [facility] Comment on above: Order Comment: Philip b[place] Type: BLOOD SPECIMEN Ordering Facility: [facility] Address: [address] [place] [address] Result Comment: The [place] Diabetes Association (ADA) provides guidance for cutoff [...] Standards of Medical Care in Diabetes 2016, [place] Diabetes Association. Diabetes Care. 2016.39(Suppl 1). Performed By: #### L SONALI, 83511-3 #### [facility] CLIA [id number] [address] [place] [address] [place] Potassium [Moles/Vol] 4.7 mmol/L Normal 3.7-5.1 [facility] Comment on above: Order Comment: Speci men Type: BLOOD SPECIMEN Ordering Facility: [facility] Address: [address] [place] [address] Performed By: #### L IPNF, #### [facility] CLIA [id number] [address] [place] [address] [place] Protein [Mass/Vol] 7.3 g/dL Normal 6.3-8.0 [facility] Comment on above: Order Comment: Speci men Type: BLOOD SPECIMEN Ordering Facility: [facility] Address: [address] [place] [address] Performed By: #### L IPNF, #### [facility] CLIA [id number] [address] [place] [address] [place] Sodium [Moles/Vol] 142 mmol/L Normal 136-144 [facility] Comment on above: Order Comment: Speci men Type: BLOOD SPECIMEN Ordering Facility: [facility] Address: [address] [place] [address] Performed By: #### L IPNF, #### [facility] CLIA [id number] [address] [place] [address] [place] Urea nitrogen [Mass/Vol] 9 mg/dL Normal 7-21 [facility] Comment on above: Order Comment: Speci men Type: BLOOD SPECIMEN Ordering Facility: [facility] Address: [address] [place] [address] Performed By: #### L IPNF, 08352-2 #### [facility] CLIA [id number] [address] [place] [address] [place] LIPID PANEL, NONFASTINGon Cholesterol [Mass/Vol] 154 mg/dL Normal <200 [facility] Comment on above: Order Comment: Speci men Type: BLOOD SPECIMEN Ordering Facility: [facility] Address: [address] [place] [address] Result Comment: <200 mg/dL, Desirable 200-239 mg/dL, Borderline high >239 mg/dL, High Performed By: #### L SONALI, 87093-8 #### [facility] CLIA [id number] [address] HDL CHOLESTEROL, NF 69 mg/dL Normal >[address] [facility] Comment on above: Order Comment: Philip birmingham Type: BLOOD SPECIMEN Ordering Facility: [facility] Address: [address] [place] [address] Result Comment: 40-5 9 mg/dL, Acceptable >59 mg/dL, High: Negative risk factor for coronary heart disease <40 mg/dL, Low: Positive risk factor for coronary heart disease Performed By: #### L SONALI, #### [facility] CLIA [id number] [address] [place] [address] LDL CHOLESTEROL, NF 66 mg/dL Normal <[address] [facility] Comment on above: Order Comment: Philip birmingham Type: BLOOD SPECIMEN Ordering Facility: [facility] Address: [address] [place] [address] Result Comment: <100 mg/dL, Optimal 100-129 mg/dL, Near optimal/above optimal 130-159 mg/dL, Borderline high 160-189 mg/dL, High >189 mg/dL, Very high Secondary prevention optimal LDL Cholesterol levels are recommended to be < 70 mg/dL Performed By: #### L SONALI, 22376-3 #### [facility] CLIA [id number] [address] [place] [address] [facility] LDL/HDL RATIO, NF 0.96 mg/dL Normal <2.54 [facility] Comment on above: Order Comment: [facility] Type: BLOOD SPECIMEN Ordering Facility: [facility] Address: [address] [place] [address] Result Comment: Eric kasper: 1. National Cholesterol Education Program ATP III Guideline At-A-Glance Quick Desk Reference: National Heart, Lung, and Blood [place]. National Institutes of Health. 2001: NIH Publication No. 01-3305. 2. An International Atherosclerosis Society position paper: global recommendations for the management of dyslipidemia: executive summary, Atherosclerosis. 2014: 232(2):410-413. Performed By: #### L IPMARTHA, #### [facility] CLIA [id number] [address] [place] [address] [place] NON HDL CHOL, NF 85 mg/dL Normal <130 [facility] Comment on above: Order Comment: Philip birmingham Type: BLOOD SPECIMEN Ordering Facility: [facility] Address: [address] [place] [address] Result Comment: <130 mg/dL, Optimal 130-159 mg/dL, Near optimal/above optimal 160-189 mg/dL, Borderline high 190-219 mg/dL, High >219 mg/dL, Very high Secondary prevention optimal non HDL Cholesterol levels are recommended to be <100 mg/dL Performed By: #### L SONALI, #### [facility] CLIA [id number] [address] [place] [address] [facility] T CHOL/HDL RATIO NF 2.23 mg/dL Normal <5.[address] [facility] Comment on above: Order Comment: Philip birmingham Type: BLOOD SPECIMEN Ordering Facility: [facility] Address: [address] [place] [address] Performed By: #### L SONALI, #### [facility] CLIA [id number] [address] [place] [address] [place] TRIGLYCERIDES, NF 96 mg/dL Normal <150 [facility] Comment on above: Order Comment: Philip birmingham Type: BLOOD SPECIMEN Ordering Facility: [facility] Address: [address] [place] [address] Result Comment: <150 mg/dL, Normal 150-199 mg/dL, Borderline high 200-499 mg/dL, High >499 mg/dL, Very high Performed By: #### L IPMARTHA, #### [facility] CLIA [id number] [address] [place] [address] [place] VLDL CHOLESTEROL, NF 19 mg/dL Normal <30 [facility] Comment on above: Order Comment: Philip men Type: BLOOD SPECIMEN Ordering Facility: [facility] Address: [address] [place] [address] Performed By: #### L IP, 42862-5 #### [facility] CLIA [id number] [address] [place] [address] [place] PHOSPHATIDYLETHANOL (PETH)on 08-31-2023 EER PETH See Note Normal [facility] Comment on above: Order Comment: Speci men Type: BLOOD SPECIMEN Ordering Facility: [facility] Address: [address] [place] [address] Result Comment: Auth orized individuals can access the [facility] Enhanced Report using the following link: [email or web address] Performed By: #### P ETH #### [email or web address] CLIA [id number] [address] [place] [address] PETH 16:0/18.2 (PLPETH) 244 ng/mL Normal [facility] Comment on above: Order Comment: Speci men Type: BLOOD SPECIMEN Ordering Facility: [facility] Address: [address] [place] [address] Result Comment: Refe rence ranges are not well established. Performed By: #### P ETH #### [facility] [id number] [address] [place] [address] PETH 16:0/18:1 (POPETH) 169 ng/mL Normal [facility] Comment on above: Order Comment: Speci men Type: BLOOD SPECIMEN Ordering Facility: [facility] Address: [address] [place] [address] Result Comment: PEth 16:0/18:1 (POPEth) Less than 10 ng/mL............Not detected Less than 20 ng/mL............Abstinence or light alcohol consumption 20 - 200 ng/mL................Moderate alcohol consumption Greater than 200 ng/mL........Heavy alcohol consumption or chronic alcohol use (Reference: Sophie Gonzalez and Crystal Helm 2018 J. Forensic Sci) Performed By: #### P ETH #### [facility] [facility] CLIA [id number] [address] [place] [address] PETH INTERPRETATION See Note Normal [facility] Comment on above: Order Comment: Speci men Type: BLOOD SPECIMEN Ordering Facility: [facility] Address: [address], [place] [address] Result Comment: Phos phatidylethanol (PEth) is a [...] developed and its performance characteristics determined by [facility]. It has not been cleared or approved by the U.S. Food and Drug Administration. This test was performed in a CLIA-certified laboratory and is intended for clinical purposes. Performed By: [facility] [address] [place] [address] Supervisor [place]: Osmar Salcido MD, PhD CLIA Number: [id number] Performed By: #### P ETH #### [employer] CLIA [id number] [address] [place] [address] MRI ABDOMEN W WO CONTRAST MR CPon [...] Troy Bond MD 08/20/23 Final result Normal [facility] Vitamin Aon 08-16-2023 Interpretation Normal Normal [facility] Comment on above: Result Comment: (NOT E) This test was developed and its performance characteristics determined by [facility]. It has not been cleared or approved by the US Food and Drug Administration. This test was performed in a CLIA certified laboratory and is intended for clinical purposes. Performed By: [facility] [address] [place] [address] Supervisor [place]: Osmar Salcido MD, PhD CLIA Number: [id number] Performed By: #### P THNCA, FEBC, FERI, GLYHGB, VD25 #### [address] [address] [employer] Dimpling Machine Operator: Harpal Adiar MD #### AGNES OLIVO, AZN #### [facility] [address] [place] [address] [employer] Dim[employer] Machine Operator: Patricio Zuñiga MD #### CP, MG, CDP #### [address] [place] [address] [employer] Dim[employer] Machine Operator: Hilton Armenta MD Retinol (Vitamin A) 0.60 mg/L Normal 0.30-1.20 [facility] Comment on above: Performed By: #### P DENNISA, FECHRIS, FERI, GLYHGB, VD25 #### [address] [address] [employer] Machine Operator: Harpal Adair MD #### AGNES OLIVO, AZN #### [facility] [address] [place], [place] [id number] [employer] Machine Operator: Patricio Zuñiga MD #### ANGEL, MG, CDP #### [address] [place] [address] [employer] Machine Operator: Hilton Armenta MD Retinyl Palmitate <0.02 Normal 0.00-0.10 [facility] Comment on above: Performed By: #### P THNCA, FECHRIS, FERI, GLYHGB, VD25 #### [address] [address] [employer] Machine Operator: Harpal Adair MD #### AGNES OLIVO, AZN #### [facility] [address] [place], [place] [id number] [employer] Machine Operator: Patricio Zuñiga MD #### CP, MG, CDP #### [facility] [address] [place] [address] Hot Dimpling Machine Operator: Hilton Armenta MD Alanine aminotransferase [En zymatic activity/volume] in Serum or PlasmaOrdered By: [facility] on 08-15-2023 ALT [Catalytic activity/Vol] 18 U/L 7-52 [facility] Albumin [Mass/volume] in Ser um or Plasma by Bromocresol green (BCG) dye binding methoOrdered By: [facility] on 08-15-2023 Albumin BCG dye [Mass/Vol] 4.6 g/dL 3.5-5.7 [facility] Alkaline phosphatase [Enzyma tic activity/volume] in Serum or PlasmaOrdered By: [facility] on 08-15-2023 ALP [Catalytic activity/Vol] 77 U/L 34-104 [facility] Aspartate aminotransferase [ Enzymatic activity/volume] in Serum or PlasmaOrdered By: [facility] on 08-15-2023 AST [Catalytic activity/Vol] 18 U/L 13-39 [facility] Basophils Auto (Bld) [#/Vol] Ordered By: [facility] on 08-15-2023 Basophils (Bld) [#/Vol] 0.1 10*3/uL 0.0-0.2 [facility] Basophils/100 WBC Auto (Bld) Ordered By: [facility] on 08-15-2023 Basophils/100 WBC (Bld) 0.5 % . [facility] Bilirubin Test strip Ql (U)O rdered By: [facility] on 08-15-2023 Bilirubin Ql (U) Negative Negative [facility] Bilirubin.direct [Mass/volum e] in Serum or PlasmaOrdered By: [facility] on 08-15-2023 Bilirubin.direct [Mass/Vol] 0.00 mg/dL 0.03-0.18 [facility] Comment on above: If the DBIL is less than 0.1, IBIL is not able to becalculated. Bilirubin.total [Mass/volume ] in Serum or PlasmaOrdered By: [facility] on 08-15-2023 Bilirubin [Mass/Vol] 0.3 mg/dL 0.3-1.0 [place] Calcium [Mass/volume] in Ser um or PlasmaOrdered By: [facility] on 08-15-2023 Calcium [Mass/Vol] 9.8 mg/dL 8.6-10.3 [facility] Carbon dioxide, total [Moles /volume] in Serum or PlasmaOrdered By: [facility] on 08-15-2023 CO2 [Moles/Vol] 21.8 mmol/L 21.0-31.0 [facility] Chloride [Moles/volume] in S tushar or PlasmaOrdered By: [facility] on 08-15-2023 Chloride [Moles/Vol] 109 mmol/L 98-107 [place] Color Auto (U)Ordered By: Maribel [facility] on 08-15-2023 Color (U) Yellow Yellow [facility] Creatinine [Mass/volume] in Serum or PlasmaOrdered By: [facility] on 08-15-2023 Creatinine [Mass/Vol] 0.76 mg/dL 0.60-1.20 [facility] Eosinophils Auto (Bld) [#/Vo l]Ordered By: [facility] on 08-15-2023 Eosinophils (Bld) [#/Vol] 0.2 10*3/uL 0.0-0.45 [facility] Eosinophils/100 WBC Auto (Bl d)Ordered By: Y[facility] on 08-15-2023 Eosinophils/100 WBC (Bld) 2.1 % . [facility] Erythrocyte distribution wid th Auto (RBC) [Ratio]Ordered By: [facility] on 08-15-2023 Erythrocyte distribution width (RBC) [Ratio] 15.1 % 11.9-15.3 [facility] Globulin Calc (S) [Mass/Vol] Ordered By: [facility] on 08-15-2023 Globulin (S) [Mass/Vol] 3.2 g/dL [facility] Glucose [Mass/volume] in Ser um or PlasmaOrdered By: [facility] on 08-15-2023 Glucose [Mass/Vol] 85 mg/dL 70-100 [facility] Comment on above: ADA recommended refe rence rangeRandom Glucose Reference Range is dependent on time and content of last meal. Glucose of more than 200 mg/dL in a nonstressed, ambulatory subject supports the diagnosis of Diabetes Mellitus. HCG ( test) IA.rapi d Ql (U)Ordered By: [facility] on 08-15-2023 HCG ( test) Ql (U) Negative [facility] Hematocrit Auto (Bld) [Volum e fraction]Ordered By: [facility] on 08-15-2023 Hematocrit (Bld) [Volume fraction] 37.2 % 34.0-46.4 [facility] Hemoglobin [Mass/volume] in BloodOrdered By: Y[facility] on 08-15-2023 Hemoglobin (Bld) [Mass/Vol] 12.2 g/dL 11.8-15.4 [facility] Ketones Auto test strip (U) [Mass/Vol]Ordered By: Yoli [facility] on 08-15-2023 Ketones (U) [Mass/Vol] Negative Negative [facility] Leukocytes [#/volume] correc caitlin for nucleated erythrocytes in Blood by Automated counOrdered By: Yoli [facility] on 08-15-2023 WBC corrected for nucl RBC Auto (Bld) [#/Vol] 11.3 10*3/uL 3.8-11.6 [facility] Lipase [Enzymatic activity/v olume] in Serum or PlasmaOrdered By: Yoli Norris on 08-15-2023 Lipase [Catalytic activity/Vol] 32.0 U/L 11.0-82.0 [facility] Lymphocytes Auto (Bld) [#/Vo l]Ordered By: Yoli Norris on 08-15-2023 Lymphocytes (Bld) [#/Vol] 2.0 10*3/uL 1.00-4.8 [facility] Lymphocytes/100 WBC Auto (Bl d)Ordered By: Yoli Norris on 08-15-2023 Lymphocytes/100 WBC (Bld) 17.8 % . [facility] MCH Auto (RBC) [Entitic mass ]Ordered By: Yoli Norris on 08-15-2023 MCH (RBC) [Entitic mass] 30.2 pg 24.7-34.3 [facility] MCHC Auto (RBC) [Mass/Vol]Or dered By: Yoli Norris on 08-15-2023 MCHC (RBC) [Mass/Vol] 32.7 g/dL 32.0-35.0 [facility] MCV Auto (RBC) [Entitic vol] Ordered By: Yoli Norris on 08-15-2023 MCV (RBC) [Entitic vol] 92.4 fL 80-100 [facility] Monocyte distribution width [Entitic volume] in Blood by AutomatedOrdered By: Yoli Norris on 08-15-2023 Monocyte distribution width Auto (Bld) [Entitic vol] 15.46 % 0.00-20.00 [facility] Monocytes Auto (Bld) [#/Vol] Ordered By: Yoli Norris on 08-15-2023 Monocytes (Bld) [#/Vol] 0.6 10*3/uL 0.0-0.8 [facility] Monocytes/100 WBC Auto (Bld) Ordered By: Yoli Norris on 08-15-2023 Monocytes/100 WBC (Bld) 5.0 % . [facility] Neutrophils Auto (Bld) [#/Vo l]Ordered By: Yoli Norris on 08-15-2023 Neutrophils (Bld) [#/Vol] 8.4 10*3/uL 1.8-7.7 [facility] Neutrophils/100 WBC Auto (Bl d)Ordered By: Yoli Norris on 08-15-2023 Neutrophils/100 WBC (Bld) 74.6 % . [facility] Nitrite Test strip Ql (U)Ord ered By: Yoli Norris on 08-15-2023 Nitrite Ql (U) Negative Negative [facility] No Panel InformationOrdered By: Yoli Norris on 08-15-2023 Estimated GFR (CKD-EPI) > 60.0 mL/Min [facility] Creatinine Clearance (Chem 117.62 [facility] Nucleated erythrocytes [Pres ence] in Blood by Automated countOrdered By: Yoli Norris on 08-15-2023 Nucleated RBC Auto Ql (Bld) 0.0 /100{WBC} 0-0.5 [facility] Platelet mean volume Auto (B ld) [Entitic vol]Ordered By: Yoli Norris on 08-15-2023 Platelet mean volume (Bld) [Entitic vol] 9.2 fL 6.3-10.7 [facility] Platelets Auto (Bld) [#/Vol] Ordered By: Yoli Norris on 08-15-2023 Platelets (Bld) [#/Vol] 321 10*3/uL 150-450 [facility] Potassium [Moles/volume] in Serum or PlasmaOrdered By: Yoli Norris on 08-15-2023 Potassium [Moles/Vol] 3.5 mmol/L 3.5-5.1 [facility] Protein Auto test strip (U) [Mass/Vol]Ordered By: Yoli Norris on 08-15-2023 Protein (U) [Mass/Vol] Negative Negative [facility] Protein [Mass/volume] in Ser um or PlasmaOrdered By: Yoli Norris on 08-15-2023 Protein [Mass/Vol] 7.8 g/dL 6.4-8.9 [facility] RBC Auto (Bld) [#/Vol]Ordere d By: Yoli Norris on 08-15-2023 RBC (Bld) [#/Vol] 4.03 10*6/uL 3.60-5.00 [facility] Serum or plasma albumin/glob ulin mass ratioOrdered By: Yoli Norris on 08-15-2023 Albumin/Globulin [Mass ratio] 1.4 {ratio} [facility] Serum or plasma anion gap de terminationOrdered By: Yoli Norris on 08-15-2023 Anion gap [Moles/Vol] 12.7 mmol/L 6.0-15.0 [facility] Serum or plasma non-glucuron idated bilirubin measurement (mass/volume)Ordered By: Yoli Norris on 08-15-2023 Bilirubin.indirect [Mass/Vol] 0.3 mg/dL [facility] Sodium [Moles/volume] in Ser um or PlasmaOrdered By: Yoli Norris on 08-15-2023 Sodium [Moles/Vol] 140 mmol/L 136-145 [facility] Specific gravity Auto test s trip (U) [Rel density]Ordered By: Yoli Norris on 08-15-2023 Specific gravity (U) [Rel density] 1.007 1.001-1.030 [facility] Urea nitrogen [Mass/volume] in Serum or PlasmaOrdered By: Yoli Norris on 08-15-2023 Urea nitrogen [Mass/Vol] 11 mg/dL 7-25 [facility] Urine clarity by refractomet ry automatedOrdered By: Yoli Norris on 08-15-2023 Clarity Refractometry automated (U) Clear Clear [facility] Urine glucose measurement by automated test strip (mass/volume)Ordered By: Yoli Norris on 08-15-2023 Glucose Auto test strip (U) [Mass/Vol] Normal mg/dL Normal [facility] Urine hemoglobin detection b y automated test stripOrdered By: Yoli Norris on 08-15-2023 Hemoglobin Auto test strip Ql (U) Negative [facility] Urine leukocyte esterase det ection by automated test stripOrdered By: Yoli Norris on 08-15-2023 Leukocyte esterase Auto test strip Ql (U) Negative [facility] Urobilinogen Auto test strip (U) [Mass/Vol]Ordered By: Yoli Norris on 08-15-2023 Urobilinogen (U) [Mass/Vol] Normal mg/dL [facility] Vitamin B1on 08-15-2023 Vitamin B1 145 nmol/L Normal 70-180 [facility] Comment on above: Result Comment: (NOT [...] developed and its performance characteristics determined by [facility]. It has not been cleared or approved by the US Food and Drug Administration. This test was performed in a CLIA certified laboratory and is intended for clinical purposes. Performed By: [facility] [address] [place] [address] Supervisor [place]: Osmar Salcido MD, PhD CLIA Number: [id number] Performed By: #### P THNCA, FEBC, FERI, GLYHGB, VD25 #### [place] [address] Hot Dimpling Machine Operator: Harpal Adair MD #### AGNES OLIVO, AZN #### [facility] [address] [place] [address] [employer] Dimpling Machine Operator: Patricio Zuñiga MD #### ANGEL MG, CDP #### [facility] [address] [place] [address] Hot Dimpling Machine Operator: Hilton Armenta MD WBC Auto (Bld) [#/Vol]Ordere d By: Yoli Norris on 08-15-2023 WBC (Bld) [#/Vol] 11.3 10*3/uL 3.8-11.6 [facility] pH Auto test strip (U)Ordere d By: Yoli Norris on 08-15-2023 pH (U) 8.0 [pH] 5.0-9.0 [facility] Zinc, Serumon 08-14-2023 Zinc, Serum 95.3 ug/dL Normal 60.0-120.0 [facility] Comment on above: Result Comment: (NOT [...] developed and its performance characteristics determined by [facility]. It has not been cleared or approved by the US Food and Drug Administration. This test was performed in a CLIA certified laboratory and is intended for clinical purposes. Performed By: [facility] [address] [place] [address] Supervisor [place]: Osmar Salcido MD, PhD CLIA Number: [id number] Performed By: #### P THNCA, FEBC, FERI, GLYHGB, VD25 #### [employer] [address] [place] [address] Hot Dimpling Machine Operator: Harpal Adair MD #### PALLAVI, ARIANTB1, AZN #### [facility] [address] [place] [address] Hot Dimpling Machine Operator: Patricio Zuñiga MD #### CP, MG, CDP #### [address] [place], [place] [phone] Hot Dimpling Machine Operator: Hilton Armenta MD B12/Folate Panelon 3 Folic Acid >20.0 Normal >4.8 [facility] Comment on above: Performed By: #### P THNCA, FEBC, FERI, GLYHGB, VD25 #### [address] [place] [address] Hot Dimpling Machine Operator: Harpal Adair MD #### AGNES OLIVO, AZN #### [facility] [address], [place] [id number] Hot Dimpling Machine Operator: Patricio Zuñiga MD #### ANGEL, , CDP #### [address] [place], [place] [phone] [employer] Dimpling Machine Operator: Hilton Armenta MD Cobalamin (Vitamin B12) [Mass/Vol] 632 pg/mL Normal 232-1245 [facility] Comment on above: Performed By: #### P DENNISA, FEBC, FERI, GLYHGB, VD25 #### [address] [address] Hot Dimpling Machine Operator: Harpal Adair MD #### AGNES OLIVO, AZN #### [facility] [address], [place] [phone] Hot Dimpling Machine Operator: Patricio Zuñiga MD #### ANGEL, MG, CDP #### [address] [place], [place] [phone] Hot Dim[employer] Machine Operator: Hilton Armenta MD CBC with Diffon 08-12-2023 Abs. Basophil 0.06 k/uL Normal 0.00-0.20 [facility] Comment on above: Performed By: #### P THNCA, FEBC, FERI, GLYHGB, VD25 #### [facility] [address] [place] [address] Hot Dimpling Machine Operator: Harpal Adair MD #### ARIAN OLIVOTB1, AZN #### [facility] [address], [place] [id number] Hot Dimpling Machine Operator: Patricio Zuñiga MD #### CP, MG, CDP #### [facility] [address] [place] [address] [address] [place], [place] [phone] Hot Dim[employer] Machine Operator: Hilton Armenta MD Abs.Imm.Granulocyte 0.03 k/uL Normal 0.00-0.30 [facility] Comment on above: Performed By: #### P BAILEY, FECHRIS, FERI, GLYHGB, VD25 #### [address] [phone] [employer] Machine Operator: Harpal Adair MD #### ARIAN OLIVOTB1, AZN #### [facility] [address] [place] [address] Hot Dimpling Machine Operator: Patricio Zuñiga MD #### ANGEL, MG, CDP #### [address] [place] [address] Hot Dimpling Machine Operator: Hilton Armenta MD Abs.Neutrophil (Seg) 6.33 k/uL Normal 1.50-8.10 [facility] Comment on above: Performed By: #### P THNCA, FEBC, FERI, GLYHGB, VD25 #### [address] [phone] Hot Dimpling Machine Operator: Harpal Adair MD #### ARIAN OLIVOTB1, AZN #### [facility] [address] [place] [address] Hot Dimpling Machine Operator: Patricio Zuñiga MD #### CP, MG, CDP #### [address] [place] [address] Hot Dimpling Machine Operator: Hilton Armenta MD Basophils/100 WBC (Bld) 1 % Normal 0-2 [facility] Comment on above: Performed By: #### P THNCA, FEBC, FERI, GLYHGB, VD25 #### [facility] [address] [place] [address] Hot Dimpling Machine Operator: Harpal Adair MD #### FARHADS, ARIANTB1, AZN #### [facility] [address] [place] [address] Hot Dimpling Machine Operator: Patricio Zuñiga MD #### CP, MG, CDP #### [facility] [address] [place] [address] [place], [place] [phone] Hot Dimpling Machine Operator: Hilton Armenta MD Eosinophils (Bld) [#/Vol] 0.43 10*3/uL Normal 0.00-0.44 [facility] Comment on above: Performed By: #### P THNCA, FEBC, FERI, GLYHGB, VD25 #### [address] [address] Hot Dimpling Machine Operator: Harpal Adair MD #### ARIAN OLIVOTB1, AZN #### [facility] [address], [place] [phone] Hot Dimpling Machine Operator: Patricio Zuñiga MD #### ANGEL, MG, CDP #### [address] [place], [place] [phone] Hot Dimpling Machine Operator: Hilton Armenta MD Eosinophils/100 WBC (Bld) 5 % High 1-4 [facility] Comment on above: Performed By: #### P THNCA, FEBC, FERI, GLYHGB, VD25 #### [facility] [address] [place] [address] Hot Dimpling Machine Operator: Harpal Adair MD #### ARIAN OLIVOTB1, AZN #### [facility] [address] [place] [address] Hot Dimpling Machine Operator: Patricio Zuñiga MD #### CP, MG, CDP #### [facility] [address] [place], [place] [phone] Hot Dimpling Machine Operator: Hilton Armenta MD Erythrocyte distribution width (RBC) [Ratio] 14.9 % High 11.8-14.4 [facility] Comment on above: Performed By: #### P THNCA, FEBC, FERI, GLYHGB, VD25 #### [address] [phone] Hot Dimpling Machine Operator: Harpal Adair MD #### AGNES OLIVO, AZN #### [facility] [address] [place] [address] Hot Dimpling Machine Operator: Patricio Zuñiga MD #### MG ANGEL, CDP #### [address] [place] [address] Hot Dimpling Machine Operator: Hilton Armenta MD Hematocrit (Bld) [Volume fraction] 38.0 % Normal 36.3-47.1 [facility] Comment on above: Performed By: #### P DENNISA, FEBC, FERI, GLYHGB, VD25 #### [address] [address] Hot Dimpling Machine Operator: Harpal Adair MD #### AGNES OLIVO, AZN #### [facility] [address] [place] [address] Hot Dimpling Machine Operator: Patricio Zuñiga MD #### ANGEL MG, CDP #### [address] [place] [address] Hot Dimpling Machine Operator: Hilton Armenta MD Hemoglobin (Bld) [Mass/Vol] 12.2 g/dL Normal 11.9-15.1 [facility] Comment on above: Performed By: #### P THNCA, FEBC, FERI, GLYHGB, VD25 #### [address] [phone] Hot Dimpling Machine Operator: Harpal Adair MD #### AGNES OLIVO, AZN #### [facility] [address], [place] [phone] Hot Dimpling Machine Operator: Patricio Zuñiga MD #### ANGEL, MG, CDP #### [facility] [address] [place], [place] 9[address]83 Hot Dimpling Machine Operator: Hilton Armenta MD Immature granulocytes/100 WBC (Bld) 0 % Normal 0 [facility] Comment on above: Performed By: #### P THNCA, FEBC, FERI, GLYHGB, VD25 #### [address] [address] Hot Dimpling Machine Operator: Harpal Adair MD #### ARIAN OLIVOTB1, AZN #### [facility] [address], [place] [phone] Hot Dimpling Machine Operator: Patricio Zuñiga MD #### ANGEL, , CDP #### [address] [place] [address] Hot Dimpling Machine Operator: Hilton Armenta MD Lymphocytes (Bld) [#/Vol] 1.90 10*3/uL Normal 1.10-3.70 [facility] Comment on above: Performed By: #### P THNCA, FEBC, FERI, GLYHGB, VD25 #### [address] [address] Hot Dimpling Machine Operator: Harpal Adair MD #### ARIAN OLIVOTB1, AZN #### [facility] [address], [place] [phone] Hot Dimpling Machine Operator: Patricio Zuñiga MD #### ANGEL, MG, CDP #### [address] [place], [place] 18[address]83 Hot Dimpling Machine Operator: Hilton Armenta MD Lymphocytes/100 WBC (Bld) 20 % Low 24-43 [facility] Comment on above: Performed By: #### P THNCA, FEBC, FERI, GLYHGB, VD25 #### [address] [place], [place] [phone] Hot Dimpling Machine Operator: Harpal Adair MD #### AGNES OLIVO, AZN #### [facility] [address], [place] [phone] Hot Dimpling Machine Operator: Patricio Zuñiga MD #### ANGEL, MG, CDP #### [address] [place] [address] Hot Dimpling Machine Operator: Hilton Armenta MD MCH (RBC) [Entitic mass] 29.9 pg Normal 25.2-33.5 [facility] Comment on above: Performed By: #### P THNCA, FEBC, FERI, GLYHGB, VD25 #### [address] [phone] Hot Dimpling Machine Operator: Harapl Adair MD #### AGNES OLIVO, AZN #### [facility] [address] [place] [address] Hot Dimpling Machine Operator: Patricio Zuñiga MD #### MG ANGEL, CDP #### [address] [place] [address] Hot Dimpling Machine Operator: Hilton Armenta MD MCHC (RBC) [Mass/Vol] 32.1 g/dL Normal 28.4-34.8 [facility] Comment on above: Performed By: #### P THNCA, FEBC, FERI, GLYHGB, VD25 #### [address] [phone] Hot Dimpling Machine Operator: Harpal Adair MD #### AGNES OLIVO, AZN #### [facility] [address], [place] [phone] Hot Dimpling Machine Operator: Patricio Zuñiga MD #### ANGEL, MG, CDP #### [facility] [address] [place], [place] [phone] Hot Dimpling Machine Operator: Hilton Armenta MD MCV (RBC) [Entitic vol] 93.1 fL Normal 82.6-102.9 [facility] Comment on above: Performed By: #### P THNCA, FEBC, FERI, GLYHGB, VD25 #### [address] 1940508 Hot Dimpling Machine Operator: Harpal Adair MD #### AGNES OLIVO, AZN #### [facility] [address] [place] [address] Hot Dimpling Machine Operator: Patricio Zuñiga MD #### ANGEL, , CDP #### [address] [place] [phone] Hot Dimpling Machine Operator: Hilton Armenta MD Monocytes (Bld) [#/Vol] 0.70 10*3/uL Normal 0.10-1.20 [facility] Comment on above: Performed By: #### P THNCA, FEBC, FERI, GLYHGB, VD25 #### [address] [address] Hot Dimpling Machine Operator: Harpal Adair MD #### AGNES OLIVO, AZN #### [facility] [address] [place] [address] Hot Dimpling Machine Operator: Patricio Zuñiga MD #### ANGEL, MG, CDP #### [address] [place], [place] 640[address]83 Hot Dimpling Machine Operator: Hilton Armenta MD Monocytes/100 WBC (Bld) 7 % Normal 3-12 [facility] Comment on above: Performed By: #### P THNCA, FEBC, FERI, GLYHGB, VD25 #### [address] [phone] Hot Dimpling Machine Operator: Harpal Adair MD #### AGNES OLIVO, AZN #### [facility] [address] [place] [address] Hot Dimpling Machine Operator: Patricio Zuñiga MD #### MG ANGEL, CDP #### [facility] [address] [place], [place] [phone] Hot Dimpling Machine Operator: Hilton Armenta MD Neutrophil (Seg) 67 % High 36-65 [facility] Comment on above: Performed By: #### P THNCA, FEBC, FERI, GLYHGB, VD25 #### [address] [phone] Hot Dimpling Machine Operator: Harpal Adair MD #### AGNES OLIVO, AZN #### [facility] [address], [place] 1999[address] Hot Dimpling Machine Operator: Patricio Zuñiga MD #### MG ANGEL, CDP #### [address] [place] [address] Hot Dimpling Machine Operator: Hilton Armenta MD NRBC Automated 0.0 per 100 WBC Normal 0.0 [facility] Comment on above: Performed By: #### P THNCA, FEBC, FERI, GLYHGB, VD25 #### [address] [phone] Hot Dimpling Machine Operator: Harpal Adair MD #### AGNES OLIVO, AZN #### [facility] [address], [place] [phone] Hot Dimpling Machine Operator: Patricio Zuñiga MD #### ANGEL MG, CDP #### [address] [place] [address] Hot Dimpling Machine Operator: Hilton Armenta MD Platelet mean volume (Bld) [Entitic vol] 10.6 fL Normal 8.1-13.5 [facility] Comment on above: Performed By: #### P THNCA, FEBC, FERI, GLYHGB, VD25 #### [address] [place] [address] Hot Dimpling Machine Operator: Harpal Adair MD #### AGNES OLIVO, AZN #### [facility] [address] [place] [address] Hot Dimpling Machine Operator: Patricio Zuñiga MD #### ANGEL MG, CDP #### [address] [place], [place] [phone] Hot Dimpling Machine Operator: Hilton Armenta MD Platelets (Bld) [#/Vol] 355 10*3/uL Normal 138-453 [facility] Comment on above: Performed By: #### P THNCA, FEBC, FERI, GLYHGB, VD25 #### [address] [address] Hot Dimpling Machine Operator: Harpal Adair MD #### AGNES OLIVO, AZN #### [facility] [address] [place] [address] Hot Dimpling Machine Operator: Patricio Zuñiga MD #### MG ANGEL, CDP #### [address] [place], [place] 1842983 Hot Dimpling Machine Operator: Hilton Armenta MD RBC (Bld) [#/Vol] 4.08 10*6/uL Normal 3.95-5.11 [facility] Comment on above: Performed By: #### P THNCA, FEBC, FERI, GLYHGB, VD25 #### [address] [place] [address] Hot Dimpling Machine Operator: Harpal Adair MD #### AGNES OLIVO, AZN #### [facility] [address] [place] [address] Hot Dimpling Machine Operator: Patricio Zuñiga MD #### ANGEL MG, CDP #### [address] [place], [place] [phone] Hot Dimpling Machine Operator: Hilton Armenta MD WBC (Bld) [#/Vol] 9.5 10*3/uL Normal 3.5-11.3 [facility] Comment on above: Performed By: #### P THNCA, FEBC, FERI, GLYHGB, VD25 #### [address] [address] Hot Dimpling Machine Operator: Harpal Adair MD #### ARIAN OLIVOTB1, AZN #### [facility] [address], [place] [phone] Hot Dimpling Machine Operator: Patricio Zuñiga MD #### ANGEL, MG, CDP #### [address] [address] Hot Dimpling Machine Operator: Hilton Armenta MD Comp Metabolic Profon 2022 Albumin [Mass/Vol] 4.5 g/dL Normal 3.5-5.2 [facility] Comment on above: Performed By: #### P THNCA, FEBC, FERI, GLYHGB, VD25 #### [address] [address] Hot Dimpling Machine Operator: Harpal Adair MD #### AGNES OLIVO, AZN #### [facility] [address] [place] [address] Hot Dimpling Machine Operator: Patricio Zuñiga MD #### CP, MG, CDP #### [address] [place] [phone] Hot Dimpling Machine Operator: Hilton Armenta MD Albumin/Glob Ratio 1.6 Normal 1.0-2.5 [facility] Comment on above: Performed By: #### P THNCA, FEBC, FERI, GLYHGB, VD25 #### [address] [phone] Hot Dimpling Machine Operator: Harpal Adair MD #### AGNES OLIVO, AZN #### [facility] [address] [place] [address] Hot Dimpling Machine Operator: Patricio Zuñiga MD #### MG ANGEL, CDP #### [address] [place], [place] 4828183 Hot Dimpling Machine Operator: Hilton Armenta MD Alkaline Phos 85 U/L Normal 35-104 [facility] Comment on above: Performed By: #### P THNCA, FEBC, FERI, GLYHGB, VD25 #### [address] [place], [place] 1359208 Hot Dimpling Machine Operator: Harpal Adair MD #### AGNES OLIVO, AZN #### [facility] [address], [place] [phone] Hot Dimpling Machine Operator: Patricio Zuñiga MD #### MG ANGEL, CDP #### [address] [place] [address] Hot Dimpling Machine Operator: Hilton Armenta MD ALT [Catalytic activity/Vol] 21 U/L Normal 5-33 [facility] Comment on above: Performed By: #### P THHAYDEEA, FEBC, FERI, GLYHGB, VD25 #### [address] [place], [place] [phone] Hot Dimpling Machine Operator: Harpal Adair MD #### AGNES OLIVO, AZN #### [facility] [address] [place] [address] Hot Dimpling Machine Operator: Patricio Zuñiga MD #### ANGEL MG, CDP #### [address] [place] [address] Hot Dimpling Machine Operator: Hilton Armenta MD Anion gap [Moles/Vol] 11 mmol/L Normal 9-17 [facility] Comment on above: Performed By: #### P THNCA, FEBC, FERI, GLYHGB, VD25 #### [facility] [address] [place] [address] Hot Dimpling Machine Operator: Harpal Adair MD #### AGNES OLIVO, AZN #### [facility] [address] [place] [address] Hot Dimpling Machine Operator: Patricio Zuñiga MD #### MG ANGEL, CDP #### [address] [place], [place] 6611283 Hot Dimpling Machine Operator: Hilton Armenta MD AST [Catalytic activity/Vol] 22 U/L Normal <32 [facility] Comment on above: Performed By: #### ALFONSO COSTA, FERI, GLYHGB, VD25 #### [address] [address] Hot Dimpling Machine Operator: Harpal Adair MD #### AGNES OLIVO, AZN #### [facility] [address], [place] [phone] Hot Dimpling Machine Operator: Patricio Zuñiga MD #### MG ANGEL, CDP #### [address] [place], [place] [phone] Hot Dimpling Machine Operator: Hilton Armenta MD Bilirubin [Mass/Vol] 0.2 mg/dL Low 0.3-1.2 [facility] Comment on above: Performed By: #### P BAILEY, FECHRIS, FERI, GLYHGB, VD25 #### [address] [address] Hot Dimpling Machine Operator: Harpal Adair MD #### AGNES OLIVO, AZN #### [facility] [address], [place] [phone] Hot Dimpling Machine Operator: Patricio Zuñiga MD #### ANGEL, MG, CDP #### [address] [place] [address] Hot Dimpling Machine Operator: Hilton Armenta MD BUN/CRE Ratio 20 Normal 9-20 [facility] Comment on above: Performed By: #### P DENNISA, FEBC, FERI, GLYHGB, VD25 #### [address] [address] Hot Dimpling Machine Operator: Harpal Adair MD #### AGNES OLIVO, AZN #### [facility] [address] [place] [address] Hot Dimpling Machine Operator: Patricio Zuñiga MD #### ANGEL, MG, CDP #### [facility] [address] [place] [address] Hot Dimpling Machine Operator: Hilton Armenta MD Calcium [Mass/Vol] 9.9 mg/dL Normal 8.6-10.4 [facility] Comment on above: Performed By: #### P BAILEY, ALFONSO, FERI, GLYHGB, VD25 #### [address] [address] [employer] Dimpling Machine Operator: Harpal Adair MD #### AGNES OLIVO, AZN #### [facility] [address], [place] [phone] Hot Dimpling Machine Operator: Patricio Zuñiga MD #### ANGEL, MG, CDP #### [facility] [address] [place] [address] [place] [address] Hot Dimpling Machine Operator: Hliton Armenta MD Chloride [Moles/Vol] 107 mmol/L Normal 98-107 [facility] Comment on above: Performed By: #### P THHAYDEEA, FECHRIS, FERI, GLYHGB, VD25 #### [address] [address] Hot Dimpling Machine Operator: Harpal Adair MD #### AGNES OLIVO, AZN #### [facility] [address], [place] [phone] Hot Dimpling Machine Operator: Patricio Zuñiga MD #### CP, MG, CDP #### [facility] [address] [place] [address] Hot Dimpling Machine Operator: Hilton Armenta MD CO2 [Moles/Vol] 23 mmol/L Normal 20-31 [facility] Comment on above: Performed By: #### P THNCA, FEBC, FERI, GLYHGB, VD25 #### [facility] [address] [place], [place] [phone] Hot Dimpling Machine Operator: Harpal Adair MD #### ARIAN OLIVOTB1, AZN #### [facility] [address] [place] [address] Hot Dimpling Machine Operator: Patricio Zuñiga MD #### ANGEL, MG, CDP #### [address] [place] [address] Hot Dimpling Machine Operator: Hilton Armenta MD Creatinine [Mass/Vol] 0.6 mg/dL Normal 0.5-0.9 [facility] Comment on above: Performed By: #### P DENNISA, FECHRIS, FERI, GLYHGB, VD25 #### [address] [address] [employer] Machine Operator: Harpal Adair MD #### AGNES OLIVO, AZN #### [facility] [address] [place] [address] Hot Dimpling Machine Operator: Patricio Zuñiga MD #### CP, MG, CDP #### [facility] [address] [place] [address] [place] [address] Hot Dimpling Machine Operator: Hilton Armenta MD GFR/1.73 sq M.predicted among non-blacks MDRD (S/P/Bld) [Vol rate/Area] mL/min/{1.73_m2} Normal >60 [facility] Comment on above: Result Comment: These [...] P THNCA, FEBC, FERI, GLYHGB, VD25 #### [address] [address] Hot Dimpling Machine Operator: Harpal Adair MD #### AGNES OLIVO, AZN #### [facility] [address] [place] [phone] Hot Dimpling Machine Operator: Patricio Zuñiga MD #### MG ANGEL, CDP #### [address] [place] [address] Hot Dimpling Machine Operator: Hilton Armenta MD Glucose [Mass/Vol] 89 mg/dL Normal 70-99 [facility] Comment on above: Performed By: #### P GINCA, FEBC, FERI, GLYHGB, VD25 #### [address] [address] Hot Dimpling Machine Operator: Harpal Adair MD #### AGNES OLIVO, AZN #### [facility] [address] [place] [phone] Hot [employer] Machine Operator: Patricio Zuñiga MD #### MG ANGEL, CDP #### [address] [place] [address] Hot Dimpling Machine Operator: Hilton Armenta MD Potassium [Moles/Vol] 4.3 mmol/L Normal 3.7-5.3 [facility] Comment on above: Performed By: #### P THNCA, FEBC, FERI, GLYHGB, VD25 #### [address] [address] Hot [employer] Machine Operator: Harpal Adair MD #### AGNES OLIVO, AZN #### [facility] [address], [place] [phone] Hot Dimpling Machine Operator: Patricio Zuñiga MD #### ANGEL MG, CDP #### [address] [place] [address] Hot Dimpling Machine Operator: Hilton Armenta MD Protein [Mass/Vol] 7.4 g/dL Normal 6.4-8.3 [facility] Comment on above: Performed By: #### P THNCA, FEBC, FERI, GLYHGB, VD25 #### [facility] [address] [place], [place] [phone] Hot Dimpling Machine Operator: Harpal Adair MD #### AGNES OLIVO, AZN #### [facility] [address], [place] [phone] Hot Dimpling Machine Operator: Patricio Zuñiga MD #### MG ANGEL, CDP #### [address] [place] [address] Hot Dimpling Machine Operator: Hilton Armenta MD Sodium [Moles/Vol] 141 mmol/L Normal 135-144 [facility] Comment on above: Performed By: #### P THNCA, FEBC, FERI, GLYHGB, VD25 #### [address] [phone] Hot [employer] Machine Operator: Harpal Adair MD #### AGNES OLIVO, AZN #### [facility] [address], [place] [phone] Hot [employer]pling Machine Operator: Patricio Zuñiga MD #### ANGEL, MG, CDP #### [address] [place] [address] Hot Dimpling Machine Operator: Hilton Armenta MD Urea nitrogen [Mass/Vol] 12 mg/dL Normal 6-20 [facility] Comment on above: Performed By: #### P THNCA, FEBC, FERI, GLYHGB, VD25 #### [facility] [place] [address] Hot Dimpling Machine Operator: Harpal Adair MD #### AGNES OLIVO, AZN #### [facility] [address], [place] [phone] Hot Dimpling Machine Operator: Patricio Zuñiga MD #### ANGEL, MG, CDP #### [facility] [address] [place], [place] [phone] [employer] Machine Operator: Hilton Armenta MD Ferritinon 08-12-2023 Ferritin [Mass/Vol] 12 ng/mL Low 13-150 [facility] Comment on above: Performed By: #### P THHAYDEEA, FEBC, FERI, GLYHGB, VD25 #### [facility] [address] [place] [address] [employer] Machine Operator: Harpal Adair MD #### AGNES OLIVO, AZN #### [facility] [address], [place] [phone] [employer] Machine Operator: Patricio Zuñiga MD #### ANGEL, MG, CDP #### [address] [place], [place] 2366183 [employer] Machine Operator: Hilton Armenta MD Hemoglobin A1Con 08-12-2023 Glucose [Mass/Vol] 114 mg/dL Normal [facility] Comment on above: Result Comment: The ADA and AACC recommend providing the estimated average glucose result to permit better patient understanding of their HBA1c result. Performed By: #### P THNCA, FEBC, FERI, GLYHGB, VD25 #### [facility] [address] [place] [address] Hot Dimpling Machine Operator: Harpal Adair MD #### ARIAN OLIVOTB1, AZN #### [facility] [address] [place] [address] Hot Dimpling Machine Operator: Patricio Zuñiga MD #### CP, MG, CDP #### [facility] [address] [place], [place] [address] Hot Dimpling Machine Operator: Hilton Armenta MD HbA1c (Bld) [Mass fraction] 5.6 % Normal 4.0-6.0 [facility] Comment on above: Performed By: #### P THNCA, FEBC, FERI, GLYHGB, VD25 #### [address] [address] Hot Dimpling Machine Operator: Harpal Adair MD #### ARIAN OLIVOTBCeli, AZN #### [facility] [address] [place] [address] Hot Dimpling Machine Operator: Patricio Zuñiga MD #### ANGEL, MG, CDP #### [facility] [address] [place] [address] [place] [address] Hot Dimpling Machine Operator: Hilton Armenta MD Iron Binding Cap.on 08-12-20 23 % Fe Saturation 16 % Low 20-55 [facility] Comment on above: Performed By: #### P THNCA, FEBC, FERI, GLYHGB, VD25 #### [address] [address] Hot Dimpling Machine Operator: Harpal Adair MD #### AGNES OLIVO, AZN #### [facility] [address] [place] [address] Hot Dimpling Machine Operator: Patricio Zuñiga MD #### CP, MG, CDP #### [facility] [address] [place] [address] [place], [place] 8828483 Hot Dimpling Machine Operator: Hilton Armenta MD Iron [Mass/Vol] 57 ug/dL Normal 37-145 [facility] Comment on above: Performed By: #### P THNCA, FEBC, FERI, GLYHGB, VD25 #### [address] [address] Hot Dimpling Machine Operator: Harpal Adair MD #### AGNES OLIVO, AZN #### [facility] [address] [place] [address] Hot Dimpling Machine Operator: Patricio Zuñiga MD #### ANGEL, MG, CDP #### [facility] [address] [place], [place] 60[address] Hot Dimpling Machine Operator: Hilton Armenta MD Total Fe Binding Cap 354 ug/dL Normal 250-450 [facility] Comment on above: Performed By: #### P THNCA, FEBC, FERI, GLYHGB, VD25 #### [address] [id number] Hot Dimpling Machine Operator: Harpal Adair MD #### AGNES OLIVO, AZN #### [facility] [address] [place], [place] [id number] Hot Dimpling Machine Operator: Patricio Zuñiga MD #### ANGEL, MG, CDP #### [address] [place] [address] Hot Dimpling Machine Operator: Hilton Armenta MD Unbound Fe Bind Cap 297 ug/dL Normal 112-347 [facility] Comment on above: Performed By: #### P THNCA, FEBC, FERI, GLYHGB, VD25 #### [address] [id number] Hot Dimpling Machine Operator: Harpal Adair MD #### AGNES OLIVO, AZN #### [facility] [address] [place] [address] Hot Dimpling Machine Operator: Patricio Zuñiga MD #### CP, MG, CDP #### [address] [place] [address] Hot Dimpling Machine Operator: Hilton Armenta MD Lipid Profileon 08-12-2023 Cholesterol [Mass/Vol] 153 mg/dL Normal <200 [facility] Comment on above: Result Comment: Cholesterol Guidelines: <200 Desirable 200-240 Borderline >240 Undesirable Performed By: #### L IPR #### [facility] [address] [place] [address] Hot Dimpling Machine Operator: Harpal Adair MD Cholesterol in HDL [Mass/Vol] 68 mg/dL Normal >40 [facility] Comment on above: Result Comment: HDL Guidelines: <40 Undesirable 40-59 Borderline >59 Desirable Performed By: #### L IPR #### [facility] [address] [place] [address] Hot Dimpling Machine Operator: Harpal Adair MD Cholesterol in LDL [Mass/Vol] 77 mg/dL Normal 0-130 [facility] Comment on above: Result Comment: LDL Guidelines: <100 Desirable 100-129 Near to/above Desirable 130-159 Borderline >159 Undesirable Direct (measured) LDL and calculated LDL are not interchangeable tests. Performed By: #### L IPR #### [facility] [address] [place] [address] Hot Dimpling Machine Operator: Harpal Adair MD Cholesterol.total/Chol esterol in HDL [Mass ratio] 2.3 {ratio} Normal <5 [facility] Comment on above: Performed By: #### L IPR #### [facility] [address] [place] [address] Hot Dimpling Machine Operator: Harpal Adair MD Triglyceride [Mass/Vol] 39 mg/dL Normal <150 [facility] Comment on above: Result Comment: Triglyceride Guidelines: <150 Desirable 150-199 Borderline 200-499 High >499 Very high Based on AHA Guidelines for fasting triglyceride, June 2012. Performed By: #### L IPR #### [employer] [facility] [address] [place] [address] Hot Dimpling Machine Operator: Harpal Adair MD Magnesiumon 08-12-2023 Magnesium [Mass/Vol] 2.1 mg/dL Normal 1.6-2.6 [facility] Comment on above: Performed By: #### P THNCA, FEBC, FERI, GLYHGB, VD25 #### [employer] [address] [place] [id number] Hot Dimpling Machine Operator: Harpal Adair MD #### AGNES OLIVO, AZN #### [facility] [address], [place] [id number] Hot Dimpling Machine Operator: Patricio Zuñiga MD #### ANGEL, MG, CDP #### [facility] [address] [place] [address] [place], [place] 5134083 Hot Dimpling Machine Operator: Hilton Armenta MD PTH, Intacton 08-12-2023 PTH, Intact 17.1 pg/mL Normal 14.0-72.0 [facility] Comment on above: Result Comment: SAMP LES FROM PATIENTS ROUTINELY RECEIVING HIGH DOSE BIOTIN THERAPY MAY SHOW FALSELY DEPRESSED RESULTS. ADDITIONAL INFORMATION MAY BE REQUIRED FOR DIAGNOSIS. Performed By: #### P THNCA, FECHRIS, FERI, GLYHGB, VD25 #### [address] [address] Hot Dimpling Machine Operator: Harpal Adair MD #### AGNES OLIVO, AZN #### [facility] [address] [place], [place] [id number] Hot Dimpling Machine Operator: Patricio Zuñiga MD #### ANGEL MG, CDP #### [facility] [address] [place] [address] [place] [address] Hot Dimpling Machine Operator: Hilton Armenta MD Thyroid Stim. Horm.on 2022 Thyroid Stim. Horm. 1.50 uIU/mL Normal 0.30-5.00 [facility] Comment on above: Performed By: #### P THNCA, FEBC, FERI, GLYHGB, VD25 #### [facility] [address] [place] [address] Hot Dimpling Machine Operator: Harpal Adair MD #### AGNES OLIVO, AZN #### [facility] [address] [place], [place] [phone] Hot Dimpling Machine Operator: Patricio Zuñiga MD #### ANGEL MG, CDP #### [facility] [address] [place], [place] 9168483 Hot Dimpling Machine Operator: Hilton Armenta MD Thyroxine, Freeon 08-12-2023 Thyroxine, Free 1.2 ng/dL Normal 0.9-1.7 [facility] Comment on above: Performed By: #### P THNCA, FEBC, FERI, GLYHGB, VD25 #### [facility] [address] [place], [place] 8536[address] Hot Dimpling Machine Operator: Harpal Adair MD #### PALLAVI AVITB1, AZN #### [facility] [address], [place] [id number] Hot Dimpling Machine Operator: Patricio Zuñiga MD #### CP, MG, CDP #### [facility] [address] [place], [place] 5358383 Hot Dimpling Machine Operator: Hilton Armenta MD US GALLBLADDER RUQon 023 US GALLBLADDER RUQ EXAMINATION: RIGHT UPPER QUADRANT ULTRASOUND 08/12/2023 7:25 am COMPARISON: None. HISTORY: ORDERING SYSTEM PROVIDED HISTORY: LUQ pain TECHNOLOGIST PROVIDED HISTORY: This procedure can be scheduled via [employer]. Access your [employer] account by visiting Get[employer]. FINDINGS: LIVER: The liver demonstrates normal echogenicity [...] DO 08/12/23 Final result Normal [facility] Vitamin D 25 OHon 08-12-2023 Vitamin D 25 OH 45.1 ng/mL Normal >29.9 [facility] Comment on above: Result Comment: Reference Range: Vitamin D status Range Deficiency <20 ng/mL Mild Deficiency 20-30 ng/mL Sufficiency 30-100 ng/mL Toxicity >100 ng/mL Performed By: #### P THNCA, FEBC, FERI, GLYHGB, VD25 #### [employer] [address] [place] [address] Hot Dimpling Machine Operator: Harpal Adair MD #### ARIAN OLIVOTB1, AZN #### [facility] [address] [place] [address] Hot Dimpling Machine Operator: Patricio Zuñiga MD #### CP, MG, CDP #### [facility] [address] [place] [address] Hot Dimpling Machine Operator: Hilton Armenta MD Patient Correspondenceon Patient Correspondence [id number]#[id number] IFF Normal [facility] ED Note-Physicianon 07-14-20 ED Note-Physician Basic Information Time Seen: Shama Macdonald PA-C 06/09/2023 15:45 Chief Complaint Pt presents to ED with complaints of MALDONADO onset today. History of Present Illness This patient presents to the emergency department chief complaint of maryam. She states that she has spent $10,000 in the last 2 weeks. She did see her psychiatrist at [facility] today and they are starting her [...] of care. (more content not included)... Normal [facility] Comment on above: Result Comment: Elec tronically Signed By: Shama Macdonald PA-C\.br\Date and Time Signed: 07/14/23 19:57 EDT\.br\Electronically Co-Signed By: Alexis Shukla DO\.benito\Date and Time Co-Signed: 07/20/23 07:11 EST COVID Quick Testingon 07-08 Result Negative [email or web address] Other Consultation Noteon 07-08-20 Consultation Note [id number]#1.00T IFF Normal [facility] Consent for Treatmenton 06-14 Consent for Treatment [id number] IFF Normal [facility] ED Clinical Summaryon 2022 ED Clinical Summary (Inserted Image. Jordana ble to display) [place] [id number] ED Clinical Summary Person Information Name: SHAZIA CHOU [place]/[facility] Age: 32 Years : 1990 Sex: Female Language: Salvadorean PCP: Jennie Durand DO Marital Status: Phone: [phone] MRN: Visit Id: Visit Reason: Headache; Neck [...] 07/02/2023 15:29:14 07/02/2023 15:29:14 07/02/2023 15:29:14 ADDRESS: [address] [place] [id number] PHYS DOC NOTES: MEDICAL INFORMATION: Prescriptions Given: [...] EDUCATION INFORMATION: Instructions: Follow up: DIAGNOSIS: Normal [facility] ED Patient Education Noteon 07-02-2023 ED Patient Education Note Normal [facility] ED Patient Summaryon 023 ED Patient Summary (Inserted Image. Jordana ble to display) [place] [id number] Patient Discharge Instructions Person Information Name: SHAZIA CHOU Age: 32 Years Arrival Date: 07/02/2023 14:03:05 Discharge Diagnosis: Primary Care Physician: Jennie Durand DO Provider Information Primary Provider: Bakari Chester DO Advanced Car Filler:Merari Polanco PA-C The exam and treatment you received in the Emergency Department were for an urgent problem and are not intended as complete care. It is important that you follow up with a doctor, nurse practitioner, or physician?s hospital clinic assistant for ongoing care. If your symptoms [...] opioids can be used to help relieve yzfshpuw-zj-lvzouy pain and are often prescribed following a [...] struggling with addiction, tell your health care worker and ask for guidance or call SAMHSA?S National Helpline at 5-457-663-DUZN. v Source: [place] Department of Health and Human Services/Center for Disease Control & Prevention [facility] Medications Given: Medication Dose Route No medication (more content not included)... Normal [facility] Consultation Noteon 10-09-20 23 Consultation Note [id number]#1.00TI FF Normal [facility] Consultation Noteon 06-19-20 Consultation Note [id number]#1.00T IFF Normal [facility] CNPNon 06-15-2023 CNPN Telephone (NEADFV) SHAZIA CHOU ([id number]) 1990 F Date Time Provider Department 06/15/23 EILEEN ALVAREZ During your visit today, we recorded the following information about you: Clara Durbin, MARCO 06/15/2023 4:57 PM Signed Received clinical notes and test results from [facility] ED visit from 06/10/23. 13 pages. Scanned to chart via Cipio. Routed to provider for review Glen Singh [...] is not alleviating the problem. Patient # [phone] Sophiajil Gorge 07/03/2023 12:15 PM Signed Per instructions from Dr. Alvarez. for patient, also sent message via Barcoding. She needs to be back on diamox 500mg bid. Eileen Alvarez MD Allergies As of Date: 06/15/2023 Noted Allergy Reaction COCONUT 11/20/2022 7 - Swelling Date Reviewed: 11/20/2022 Reviewed by: Graeme, Edith, MA - Fully Assessed Reason for Visit: [...] 40 mg by mouth once daily. - xiulzeuutlie-uvr-xaid-F A-vit K (BARIATRIC MULTIVITAMINS) 45 mg iron- [...] Status:Closed by GORGE BETANCUR on 07/03/23 Normal [facility] Discharge Instructionson Discharge Instructions [id number]#1.00 CD:127 Normal [facility] Acetamnphn Lvlon 06-09-2023 Acetaminophen [Mass/Vol] ug/mL Low 15-30 [facility] Comment on above: Performed By: #### 2 317585, 2149698, 7231588, 1910345, 8367928, 57471176 ####[facility] [address] [place] [address] Auto Diffon 06-09-2023 Basophils/100 WBC (Bld) 0.6 % Normal 0.0-2.0 [facility] Comment on above: Order Comment: Order Added by Discern Expert. Performed By: #### 2 416229, 3346442, 3951759, 4661489, 4429656, 71717368 ####[address] [address] Basophils/Leukocytes Auto (Bld) [Pure # fraction] 0.0 E9/L Normal 0.0-0.2 [facility] Comment on above: Order Comment: Order Added by Discern Expert. Performed By: #### 2 733017, 2721772, 2398935, 7655572, 2357096, 20384989 ####[address] [address] Eosinophils/100 WBC (Bld) 1.9 % Normal 0.0-8.0 [facility] Comment on above: Order Comment: Order Added by Discern Expert. Performed By: #### 2 096063, 0386873, 0308538, 5694527, 8145982, 91580436 ####[address] [address] Eosinophils/Leukocytes Auto (Bld) [Pure # fraction] 0.2 E9/L Normal 0.0-0.5 [facility] Comment on above: Order Comment: Order Added by Discern Expert. Performed By: #### 2 639793, 2959528, 1685358, 9404571, 3146981, 33314992 ####[address] [address] Lymphocytes/100 WBC (Bld) 23.4 % Normal 14.0-50.0 [facility] Comment on above: Order Comment: Order Added by Discern Expert. Performed By: #### 2 643513, 1310501, 2119502, 8130475, 2816170, 73379317 ####[address] [address] Lymphocytes/Leukocytes Auto (Bld) [Pure # fraction] 2.0 E9/L Normal 1.0-4.0 [facility] Comment on above: Order Comment: Order Added by Discern Expert. Performed By: #### 2 554736, 3225984, 2156655, 0716730, 8794331, 13316603 ####[place] [address] [place] [address] Monocytes/100 WBC (Bld) 6.9 % Normal 4.0-14.0 [facility] Comment on above: Order Comment: Order Added by Discern Expert. Performed By: #### 2 515469, 7050138, 1255285, 2866029, 8491207, 83004203 ####[place] [address] [place] [address] Monocytes/Leukocytes Auto (Bld) [Pure # fraction] 0.6 E9/L Normal 0.2-1.0 [facility] Comment on above: Order Comment: Order Added by Discern Expert. Performed By: #### 2 319104, 5025604, 6759154, 9020189, 3611903, 78566227 ####[address] [address] Neutrophils/100 WBC (Bld) 67.2 % Normal 36.0-75.0 [facility] Comment on above: Order Comment: Order Added by Discern Expert. Performed By: #### 2 354586, 6505966, 6488860, 5651387, 4717968, 04249215 ####[address] [address] Neutrophils/Leukocytes Auto (Bld) [Pure # fraction] 5.6 E9/L Normal 2.0-7.5 [facility] Comment on above: Order Comment: Order Added by Discern Expert. Performed By: #### 2 176073, 7644008, 9550005, 8330891, 3145063, 39615660 ####[place] [address] [place] [address] CBC w/ Auto Diffon 3 Erythrocyte distribution width (RBC) [Ratio] 18.2 % High 10.9-14.2 [facility] Comment on above: Performed By: #### 2 218802, 4042944, 1339326, 9190368, 8356371, 21306983 ####[place] [address] [place] [address] Hematocrit (Bld) [Volume fraction] 34.3 % Normal 34.0-46.0 [facility] Comment on above: Performed By: #### 2 612647, 2115846, 2263717, 6498451, 4686427, 19896957 ####[address] [address] Hemoglobin (Bld) [Mass/Vol] 11.5 g/dL Low 12.0-16.0 [facility] Comment on above: Performed By: #### 2 446338, 2008301, 2201157, 1703299, 8235227, 07788298 ####[address] [address] MCH (RBC) [Entitic mass] 30.6 pg Normal 27.0-34.0 [facility] Comment on above: Performed By: #### 2 796742, 8997533, 1200952, 5005362, 2015117, 51369211 ####[address] [address] MCHC (RBC) [Mass/Vol] 33.6 g/dL Normal 31.4-36.0 [facility] Comment on above: Performed By: #### 2 437301, 3306864, 8122270, 6747071, 2012726, 70185474 ####[address] [address] MCV (RBC) [Entitic vol] 91.0 fL Normal 80.0-100.0 [facility] Comment on above: Performed By: #### 2 208322, 7694176, 7390161, 3346297, 8520355, 69207461 ####[address] [address] Platelet mean volume (Bld) [Entitic vol] 9.8 fL Normal 6.4-10.8 [facility] Comment on above: Performed By: #### 2 097262, 4487921, 3585330, 7479488, 9569987, 63951406 ####[facility] [address] [place] [address] Platelets (Bld) [#/Vol] 283.0 E9/L Normal 150.0-500.0 [facility] Comment on above: Performed By: #### 2 408591, 4699495, 2758372, 9906136, 7185158, 13581044 ####[place] [address] [place] [address] RBC (Bld) [#/Vol] 3.8 E12/L Low 4.3-5.9 [facility] Comment on above: Performed By: #### 2 201335, 4215353, 5904386, 7749503, 2846718, 44703940 ####[place] [address] [place] [address] WBC corrected for nucl RBC Auto (Bld) [#/Vol] 8.4 E9/L Normal 4.0-11.0 [facility] Comment on above: Performed By: #### 2 200937, 2052954, 7323850, 5401936, 8076164, 08532855 ####[place] [address] [place] [address] CMPon 06-09-2023 Albumin [Mass/Vol] 4.1 g/dL Normal 3.3-5.0 [facility] Comment on above: Performed By: #### 2 089278, 5986432, 2233765, 8579212, 0065471, 03482629 ####[place] [address] [place] [address] Albumin/Globulin (S) [Mass conc ratio] 1.3 Normal 1.1-2.2 [facility] Comment on above: Performed By: #### 2 109739, 6976389, 2178872, 9398166, 2747959, 29328489 ####[place] [address] [place] [address] ALP [Catalytic activity/Vol] 58 Int._Unit/L Normal 21-98 [facility] Comment on above: Performed By: #### 2 841380, 9790227, 1865995, 4696877, 9552913, 69842516 ####[facility] [address] [place] [address] ALT No additional P-5'-P [Catalytic activity/Vol] 18 Int._Unit/L Normal 6-46 [facility] Comment on above: Performed By: #### 2 305668, 4043544, 9972171, 8170704, 8549582, 72668353 ####[facility] [address] [place] [address] AST [Catalytic activity/Vol] 20 Int._Unit/L Normal 5-43 [facility] Comment on above: Performed By: #### 2 053586, 7101651, 4075055, 7534066, 3541562, 15472214 ####[facility] [address] [place] [address] Bilirubin [Mass/Vol] 0.1 mg/dL Normal 0.0-1.1 [facility] Comment on above: Performed By: #### 2 249103, 7212987, 9803396, 0761076, 5643429, 52675130 ####[facility] [address] [place] [address] Creatinine [Mass/Vol] 0.6 mg/dL Normal 0.5-1.3 [facility] Comment on above: Performed By: #### 2 380455, 0326826, 6337685, 6082216, 7245708, 19062728 ####[facility] [address] [place] [address] Globulin (S) [Mass/Vol] 3.2 g/dL Normal 1.4-4.0 [facility] Comment on above: Performed By: #### 2 773734, 6223400, 4028051, 4311220, 2464509, 04932135 ####[facility] [address] [place] [address] Protein [Mass/Vol] 7.3 g/dL Normal 6.0-7.8 [facility] Comment on above: Performed By: #### 2 429001, 5434811, 6177175, 3490507, 7379799, 82706035 ####[facility] [address] [place] [address] Urea nitrogen [Mass/Vol] 15 mg/dL Normal 5-21 [facility] Comment on above: Performed By: #### 2 836164, 9080146, 4145866, 1005682, 2701653, 52797090 ####[facility] [address] [place] [address] Urea nitrogen/Creatinine [Mass ratio] 25 No Units High 10-20 [facility] Comment on above: Performed By: #### 2 902081, 2080703, 1903203, 7169378, 9307291, 98061531 ####[facility] [address] [place] [address] Anion gap [Moles/Vol] 13 mmol/L Normal 6-16 [facility] Comment on above: Performed By: #### 2 763482, 5657573, 6947554, 6224905, 8786189, 52677013 ####[facility] [address] [place] [address] Calcium [Mass/Vol] 9.3 mg/dL Normal 8.9-11.1 [facility] Comment on above: Performed By: #### 2 371313, 0058887, 5246886, 9102927, 4652399, 84675806 ####[facility] [address] [place] [address] Chloride [Moles/Vol] 107 mmol/L Normal 101-111 [facility] Comment on above: Performed By: #### 2 842702, 3181475, 4044740, 4641680, 5469950, 88969451 ####[facility] [address] [place] [address] CO2 [Moles/Vol] 23 mmol/L Normal 21-31 [facility] Comment on above: Performed By: #### 2 665527, 0977018, 4589116, 0276272, 9094806, 71224538 ####[facility] [address] [place] [address] Glucose [Mass/Vol] 91 mg/dL Normal 55-199 [facility] Comment on above: Result Comment: If t his glucose result represents a fasting glucose, interpretation should refer to the following reference range: 55-99 mg/dL Performed By: #### 2 963391, 1385731, 1308551, 9498647, 1384909, 53721464 ####[facility] [address] [place] [address] Potassium [Moles/Vol] 3.6 mmol/L Normal 3.5-5.3 [facility] Comment on above: Performed By: #### 2 208103, 4811780, 3735251, 3743635, 8710749, 02066674 ####[facility] [address] [place] [address] Sodium [Moles/Vol] 139 mmol/L Normal 135-145 [facility] Comment on above: Performed By: #### 2 141630, 5114539, 0339315, 8569344, 0569182, 71664928 ####[facility] [address] [place] [address] Consent for Treatmenton 05-16 Consent for Treatment [id number]#1.00C D:127 Normal [facility] ED Clinical Summaryon 2022 ED Clinical Summary (Inserted Image. Jordana ble to display) [address] [address] ED Clinical Summary Person Information Name: SHAZIA CHOU [place]/[facility] Age: 32 Years : 1990 Sex: Female Language: Salvadorean PCP: Jennie Durand DO Marital Status: Phone: [phone] MRN: Visit Id: Visit Reason: Headache; HEADACHE [...] 06/09/2023 18:42:22 06/09/2023 18:42:22 06/09/2023 18:42:22 ADDRESS: [address] [place] [phone] [facility] DOC NOTES: MEDICAL INFORMATION: Prescriptions Given: [...] (at bedtime). PATIENT EDUCATION INFORMATION: Instructions: Paresthesia, Rhqu-ha-Xdpq; Migraine Headache, Lwrc-jk-Cnxg Follow up: With: Address: When: [facility] In 3 days 06/12/2023 With: Address: When: Jennie Durand [facility] [place], [facility], [place] [address] [place] [id number] [facility] (1) In 3 days 06/12/2023 DIAGNOSIS: 1:Headache; 2:Paresthesia of arm Normal [facility] ED Patient Education Noteon 06-09-2023 ED [...] liquor (44 mL). General instructions ? Take pwnm-vfp-qsitxot and prescription medicines only as told by [...] provider. Document Revised: 05/12/2022 Document Reviewed: 05/12/2022 [employer] Patient Education ? 2022 [employer] Migraine Headache A migraine headache is [...] ? Tiredness. (more content not included)... Normal [facility] ED Patient Summaryon 023 ED Patient Summary (Inserted Image. Jordana ble to display) [place] [id number] Patient Discharge Instructions Person Information Name: SHAZIA CHOU Age: 32 Years Arrival Date: 06/09/2023 15:33:36 Discharge Diagnosis: 1:Headache; 2:Paresthesia of arm Primary Care Physician: Jennie Durand DO Provider Information Primary Provider: Alexis Shukla DO Advanced Car Filler:None The exam and treatment you received in the Emergency Department were for an urgent problem and are not intended as complete care. It is important that you follow up with a doctor, nurse practitioner, or physician?s hospital clinic assistant for ongoing care. If your symptoms become worse or you do not improve as expected and you are unable to reach your usual health care provider, you should return to the Emergency Department. We are available 24 hours a day. SHAZIA CHOU has been given the following list of patient education materials, prescriptions and follow-up instructions: Follow-up Instructions: With: Address: When: [facility] In 3 days 06/12/2023 With: Address: When: Jennie Durand [address] [place], [place] [id number] [facility] (4) In 3 days 06/12/2023 In the event that this physician does not participate in your insurance network, please consult with your insurance company to find a nearby participating provider. Patient Education Materials: Paresthesia, Iqyv-wc-Biru; Migraine Headache, Wxwq-yv-Ivlx A MESSAGE TO ALL PATIENTS REGARDING OPIOIDS PRESCRIPTION OPIOIDS: WHAT YOU NEED TO KNOW Prescription opioids can be used to help relieve wzjkanic-bf-voiicr pain and are often prescribed following a [...] addiction, tell (more content not included)... Normal [facility] Ethanolon 06-09-2023 Ethanol [Mass/Vol] mg/dL Normal <=7 [facility] Comment on above: Performed By: #### 2 [id number] ####[facility] [address] [place] [address] Salicylateon 06-09-2023 Salicylates [Mass/Vol] mg/dL Low 6-29 [facility] Comment on above: Performed By: #### 2 761420, 2070165, 7447327, 0668819, 9040121, 66726536 ####[facility] [address] [place] [address] U Drug Screenon 06-09-2023 Amphetamines Screen method >1000 ng/mL Ql (U) Negative Normal Negative [facility] Comment on above: Result Comment: Nega tive Cutoff: <1000 ng/mL Performed By: #### 2 039164 ####[facility] [address] [place] [address] Barbiturates Screen Ql (U) Negative Normal Negative [facility] Comment on above: Result Comment: Nega tive Cutoff: <200 ng/mL Performed By: #### 2 818581 ####[facility] [address] [place] [address] Benzodiazepines Ql (U) Negative Normal Negative [facility] Comment on above: Result Comment: Nega tive Cutoff: <200 ng/mL Performed By: #### 2 002399 ####[facility] [address] [place] [address] Cocaine Ql (U) Negative Normal Negative [facility] Comment on above: Result Comment: Nega tive Cutoff: <300 ng/mL Performed By: #### 2 439455 ####[facility] [address] [place] [address] Opiates Screen Ql (U) Negative Normal Negative [facility] Comment on above: Result Comment: Nega tive Cutoff: <300 ng/mL Performed By: #### 2 400353 ####[facility] [address] [place] [address] Phencyclidine Screen method >25 ng/mL Ql (U) Negative Normal Negative [facility] Comment on above: Result Comment: Nega tive Cutoff: <25 ng/mL These drug screen results are to be used for medical (i.e., treatment) purposes only. Unconfirmed drug screening results must not be used for non-medical purposes (e.g., employment testing, legal testing). Performed By: #### 2 153875 ####[facility] [address] [place] [address] Tetrahydrocannabinol Screen method >50 ng/mL Ql (U) Negative Normal Negative [facility] Comment on above: Result Comment: Nega tive Cutoff: <50 ng/mL Performed By: #### 2 041392 ####[facility] [address] [place] [address] UA With Cult Reflexon 2022 Bilirubin Ql (U) Negative Normal Negative [facility] Comment on above: Performed By: #### 1 8410111 #### [facility] [address] [place] [address] Clarity (U) CLEAR Normal Clear [facility] Comment on above: Performed By: #### 1 [id number] #### [facility] [address] [place] [address] Color (U) YELLOW Normal Yellow [facility] Comment on above: Performed By: #### 1 2127912 #### [facility] [address] [place] [address] Crystals LM Ql (Urine sed) Present Normal [facility] Comment on above: Performed By: #### 1 9256738 #### [facility] [address] [place] [address] Epithelial cells.squamous LM.HPF (Urine sed) [#/Area] 0-2 Normal 0-2 [facility] Comment on above: Performed By: #### 1 9014023 #### [facility] [address] [place] [address] Glucose Test strip (U) [Mass/Vol] Negative Normal Negative [facility] Comment on above: Performed By: #### 1 6287512 #### [facility] [address] [place] [address] Hemoglobin Ql (U) Negative Normal Negative [facility] Comment on above: Performed By: #### 1 5996783 #### [facility] [address] [place] [address] Ketones (U) [Mass/Vol] Negative Normal Negative [facility] Comment on above: Performed By: #### 1 7895669 #### [facility] [address] [place] [address] Arrowsmith.plasma/Arrowsmith .RBC (Bld) [Mass ratio] 0-3 Normal 0-3 [facility] Comment on above: Performed By: #### 1 9461583 #### [facility] [address] [place] [address] Nitrite Ql (U) Negative Normal Negative [facility] Comment on above: Performed By: #### 1 0090618 #### [facility] [address] [place] [address] pH (U) 6.0 [pH] Invalid Interpretation Code 5.0-9.0 [facility] Comment on above: Performed By: #### 1 6405780 #### [facility] [address] [place] [address] Protein (U) [Mass/Vol] Negative Normal Negative [facility] Comment on above: Performed By: #### 1 4955487 #### [facility] [address] [place] [address] Specific gravity (U) [Rel density] 1.010 Invalid Interpretation Code 1.005-1.030 [facility] Comment on above: Performed By: #### 1 8983840 #### [facility] [address] [place] [address] Type of Urine collection method Clean Catch Normal [facility] Comment on above: Performed By: #### 1 2929000 #### [facility] [address] [place] [address] Urobilinogen Qn (U) 0.2 {Lucila'U}/dL Normal 0.0-1.0 [facility] Comment on above: Performed By: #### 1 3903984 #### [facility] [address] [place] [address] WBC Auto Ql (U) Negative Normal Negative [facility] Comment on above: Performed By: #### 1 6001444 #### [facility] [address] [place] [address] WBC LM.HPF (Urine sed) [#/Area] 0-5 Normal 0-5 [facility] Comment on above: Performed By: #### 1 1294129 #### [facility] [address] [place] [address] eGFRon 06-09-2023 GFR/1.73 sq M.predicted among non-blacks MDRD (S/P/Bld) [Vol rate/Area] 121 mL/min/1.73 m2 Normal >=59 [facility] Comment on above: Order Comment: Order added by Discern Expert. Result Comment: Attacher gurpreet kidney disease could be indicated at eGFR's of less than 60 mL/min/1.73m2. Kidney failure is indicated at less than 15 mL/min/1.73m2. Performed By: #### 2 523618, 1891145, 7002812, 3506603, 0618379, 60757015 ####[facility] [address] [place] [address] Vit Aon 03-24-2023 Retinol [Mass/Vol] 42.9 microgram/dL Invalid Interpretation Code 18.9-57.3 [facility] Comment on above: Result Comment: Refe rence intervals for vitamin A determined from [facility] internal studies. Individuals with vitamin A less than 20 ug/dL are considered vitamin A deficient and those with serum concentrations less than 10 ug/dL are considered severely deficient. This test was developed and its performance characteristics determined by [facility]. It has not been cleared or approved by the Food and Drug Administration. Performed at: [address] [id number] MD Shorty Rodríguez Performed By: #### 2 648385, 00821928, 1842255, 1159191, 33457952, 97516541, 757109052, 3050628, 3147419, 59778528, 5131565, 9251960, 737697414, 57883874, 2108449, 2213191, 3744174, 0480296 ####[facility] [address] [place] [address] Vit B1on 03-24-2023 Thiamine (Bld) [Moles/Vol] 171.7 nmol/L Invalid Interpretation Code 66.5-200.0 [facility] Comment on above: Result Comment: This test was developed and its performance characteristics determined by [facility]. It has not been cleared or approved by the Food and Drug Administration. Performed at: [address] [id number] MD Shorty Rodríguez Performed By: #### 2 901343, 57254564, 6517853, 8709069, 10693804, 56653434, 022601201, 1764777, 2943155, 07488274, 4710881, 9088154, 287617595, 37591704, 9919708, 7330978, 5242679, 0531638 ####[facility] [address] [place] [address] Zinc Lvlon 03-24-2023 Zinc [Mass/Vol] 85 microgram/dL Invalid Interpretation Code 44-115 [facility] Comment on above: Result Comment: This test was developed and its performance characteristics determined by [facility]. It has not been cleared or approved by the Food and Drug Administration. Detection Limit = 5 Performed at: [address] [id number] MD Shorty Rodríguez Performed By: #### 2 220415, 05518519, 6489772, 0156780, 24643029, 09828049, 665335623, 4805009, 5565555, 69693978, 8734572, 2070417, 363066191, 94236627, 3257269, 5498367, 0228636, 0716666 ####[facility] [address] [place] [address] PTH Intacton 03-20-2023 Parathyrin.intact [Mass/Vol] 17 pg/mL Invalid Interpretation Code 15-65 [facility] Comment on above: Result Comment: Perf ormed at: [facility] [address] [id number] PhD Cordelia Madera Performed By: #### 1 7489412 ####[facility] [address] [place] [address] Auto Diffon 03-19-2023 Basophils/100 WBC (Bld) 1.1 % Normal 0.0-2.0 [facility] Comment on above: Order Comment: Order Added by Discern Expert. Performed By: #### 2 880835, 19639991, 7084767, 2246135, 41461547, 26590700, 185545972, 5880982, 3334936, 45867765, 0407616, 0808753, 950301459, 46859045, 6463850, 3129151, 0996984, 7743719 ####[facility] [address] [place] [address] Basophils/Leukocytes Auto (Bld) [Pure # fraction] 0.1 E9/L Normal 0.0-0.2 [facility] Comment on above: Order Comment: Order Added by Discern Expert. Performed By: #### 2 616631, 34974965, 0284973, 4159220, 60482046, 48213144, 812951649, 6136692, 0783028, 73147260, 6162533, 9478687, 052484534, 95748116, 0676971, 2460328, 9472469, 7018738 ####[facility] [address] [place] [address] Eosinophils/100 WBC (Bld) 4.1 % Normal 0.0-8.0 [facility] Comment on above: Order Comment: Order Added by Discern Expert. Performed By: #### 2 968127, 12675843, 3296054, 9912445, 24380087, 08448574, 405686926, 4712127, 3460341, 03343886, 9960243, 0480831, 151983648, 77331019, 7546776, 9421394, 1283683, 6988553 ####[facility] [address] [place] [address] Eosinophils/Leukocytes Auto (Bld) [Pure # fraction] 0.4 E9/L Normal 0.0-0.5 [facility] Comment on above: Order Comment: Order Added by Discern Expert. Performed By: #### 2 489055, 17292462, 3885376, 5332466, 50730653, 03146071, 519765849, 6823887, 3595593, 26621537, 7866541, 9778204, 741828163, 98686849, 0810274, 5927956, 0065773, 7955362 ####[place] [address] [place] [address] Lymphocytes/100 WBC (Bld) 20.5 % Normal 14.0-50.0 [facility] Comment on above: Order Comment: Order Added by Discern Expert. Performed By: #### 2 816525, 62761356, 9814577, 0841960, 17355871, 23741058, 216904149, 2750402, 6149986, 05681872, 2362709, 7670142, 581783557, 76193639, 1076726, 2745589, 1230176, 2745082 ####[place] [address] [place] [address] Lymphocytes/Leukocytes Auto (Bld) [Pure # fraction] 2.1 E9/L Normal 1.0-4.0 [facility] Comment on above: Order Comment: Order Added by Discern Expert. Performed By: #### 2 298787, 09246076, 4375866, 4970919, 60688214, 27100190, 272504881, 3376948, 3932689, 30649781, 9795662, 9269570, 777890369, 14662761, 1212287, 0199990, 0205764, 7346556 ####[facility] [address] [place] [address] Monocytes/100 WBC (Bld) 7.6 % Normal 4.0-14.0 [facility] Comment on above: Order Comment: Order Added by Discern Expert. Performed By: #### 2 794726, 52704514, 3661116, 6795318, 94903488, 46611246, 669732419, 0785361, 7323375, 08997794, 8964877, 0415471, 424341255, 09034594, 3714734, 2174228, 6540818, 9331856 ####[facility] [address] [place] [address] Monocytes/Leukocytes Auto (Bld) [Pure # fraction] 0.8 E9/L Normal 0.2-1.0 [facility] Comment on above: Order Comment: Order Added by Discern Expert. Performed By: #### 2 082268, 85560650, 3444698, 0903003, 01938256, 17200322, 251031272, 4826206, 2613237, 45285169, 2402703, 6204534, 148986763, 38363035, 9085759, 7491021, 2165554, 2244575 ####[address] [address] Neutrophils/100 WBC (Bld) 66.7 % Normal 36.0-75.0 [facility] Comment on above: Order Comment: Order Added by Discern Expert. Performed By: #### 2 346728, 72676253, 0741435, 3394536, 63223008, 95623060, 615693434, 5421167, 6129651, 45288372, 5104700, 1990178, 841339364, 96713994, 3378601, 4757852, 9390975, 5781825 ####[place] [address] [place] [address] Neutrophils/Leukocytes Auto (Bld) [Pure # fraction] 6.8 E9/L Normal 2.0-7.5 [facility] Comment on above: Order Comment: Order Added by Discern Expert. Performed By: #### 2 181995, 13633799, 0149041, 1298512, 49377457, 45653731, 431152822, 3677107, 5811839, 58941156, 9429571, 0313068, 258283879, 25360845, 7103851, 5773815, 7393210, 9375149 ####[facility] [address] [place] [address] CBC w/ Auto Diffon 3 Erythrocyte distribution width (RBC) [Ratio] 16.0 % High 10.9-14.2 [facility] Comment on above: Performed By: #### 2 300983, 80946246, 9066498, 9620412, 97298210, 81933059, 826255169, 9838835, 3733697, 76604932, 0954879, 6130742, 346039438, 87673727, 4227105, 6690979, 6388090, 5520430 ####[facility] [address] [place] [address] Hematocrit (Bld) [Volume fraction] 37.1 % Normal 34.0-46.0 [facility] Comment on above: Performed By: #### 2 258078, 87478362, 0757694, 6582009, 96075437, 63609823, 451150668, 8654944, 6682534, 12547586, 3949712, 1794799, 419279675, 67979087, 7257266, 0612839, 0510933, 2245222 ####[place] [address] [place] [address] Hemoglobin (Bld) [Mass/Vol] 12.6 g/dL Normal 12.0-16.0 [facility] Comment on above: Performed By: #### 2 226679, 24500793, 7351114, 2884952, 37934371, 30268920, 983657662, 4377981, 2431429, 75083984, 1519040, 1304457, 594271823, 00401570, 1922673, 3937724, 9246682, 9224099 ####[facility] [address] [place] [address] MCH (RBC) [Entitic mass] 31.2 pg Normal 27.0-34.0 [facility] Comment on above: Performed By: #### 2 687954, 80778410, 1795021, 9486336, 91578374, 87967463, 782599806, 2051191, 9306993, 81489019, 2416242, 5425161, 481408917, 01208736, 4063207, 0863758, 8919539, 1330009 ####[place] [address] [place] [address] MCHC (RBC) [Mass/Vol] 33.9 g/dL Normal 31.4-36.0 [facility] Comment on above: Performed By: #### 2 279452, 92437181, 7266732, 7070798, 33902894, 80615997, 154613007, 0738062, 9814674, 25183270, 5670646, 9015005, 378942730, 03221088, 2439992, 6751595, 3558721, 1496945 ####[address] [address] MCV (RBC) [Entitic vol] 92.0 fL Normal 80.0-100.0 [facility] Comment on above: Performed By: #### 2 148540, 92211932, 0846889, 4507027, 03231917, 64156039, 408874445, 2544116, 9843095, 74951265, 3275084, 9656136, 240344785, 22730869, 2464395, 4701186, 2053772, 1580236 ####[address] [address] Platelet mean volume (Bld) [Entitic vol] 9.8 fL Normal 6.4-10.8 [facility] Comment on above: Performed By: #### 2 143932, 54203265, 7119177, 6874666, 31525722, 10298892, 679545725, 3534652, 3623057, 94154481, 8846410, 3404573, 585196065, 75923280, 3329101, 9952274, 3959913, 0255620 ####[facility] [address] [place] [address] Platelets (Bld) [#/Vol] 369.0 E9/L Normal 150.0-500.0 [facility] Comment on above: Performed By: #### 2 839499, 43713723, 1368888, 0752383, 48859476, 57146055, 002358074, 6876604, 0208167, 36212246, 1199352, 1698002, 503257730, 60456654, 3569460, 7649672, 6533168, 0751147 ####[facility] [address] [place] [address] RBC (Bld) [#/Vol] 4.0 E12/L Low 4.3-5.9 [facility] Comment on above: Performed By: #### 2 022811, 31280245, 7173228, 9153454, 62592405, 48706422, 651125608, 1173682, 1208419, 37165237, 9277419, 4494701, 742907089, 44568420, 1434591, 3755164, 9687330, 6535021 ####[facility] [address] [place] [address] WBC corrected for nucl RBC Auto (Bld) [#/Vol] 10.1 E9/L Normal 4.0-11.0 [facility] Comment on above: Performed By: #### 2 972132, 44895021, 9919676, 6924969, 56284609, 87737950, 560768674, 3274878, 4579336, 42083768, 7993143, 9729976, 385914711, 11515263, 8748715, 5490785, 1234764, 6031459 ####[facility] [address] [place] [address]57 CHEMISTRYOrdered By: SYSTEM SYSTEM on 03-19-2023 25-hydroxyvitamin [...] 03-19-2023 Albumin [Mass/Vol] 4.0 g/dL Normal 3.3-5.0 [facility] Comment on above: Performed By: #### 2 319364, 23889216, 0228498, 5210531, 93820586, 61044138, 241008230, 2309076, 6521696, 16793404, 7076327, 8116103, 270667334, 29671150, 2674935, 1749948, 6479133, 9885705 ####[facility] [address] [place] [address] Albumin/Globulin (S) [Mass conc ratio] 1.2 Normal 1.1-2.2 [facility] Comment on above: Performed By: #### 2 031307, 41606533, 8063151, 3142718, 76024344, 08039098, 012146365, 9149284, 9935895, 17417729, 6325455, 2750800, 205625148, 76305420, 2325447, 8564147, 1954405, 5043331 ####[facility] [address] [place] [address] ALP [Catalytic activity/Vol] 61 Int._Unit/L Normal 21-98 [facility] Comment on above: Performed By: #### 2 431481, 76277495, 9264189, 9164844, 89309357, 85447084, 938837696, 2511384, 1848702, 76977630, 8934838, 3957287, 843840031, 67518923, 0722615, 9367819, 2184745, 9437484 ####[facility] [address] [place] [address] ALT No additional P-5'-P [Catalytic activity/Vol] 17 Int._Unit/L Normal 6-46 [facility] Comment on above: Performed By: #### 2 385436, 51770301, 5375648, 6809186, 39209963, 26221312, 211525458, 8149145, 9704661, 10947455, 2876206, 7822045, 755491978, 04051935, 9827333, 4138197, 0114132, 6278879 ####[facility] [address] [place] [address] Anion gap [Moles/Vol] 9 mmol/L Normal 6-16 [facility] Comment on above: Performed By: #### 2 214605, 26056479, 2419917, 5200605, 72976518, 52044373, 465839337, 7670840, 0366676, 34771785, 3514424, 0688996, 712758375, 91595887, 8113895, 9669458, 3162412, 3405929 ####[place] [address] [place] [address] AST [Catalytic activity/Vol] 20 Int._Unit/L Normal 5-43 [facility] Comment on above: Performed By: #### 2 875979, 29531363, 6293044, 5290035, 43064654, 84363243, 869951281, 9827122, 6787341, 69236065, 0647785, 1912849, 330154347, 99724177, 8398659, 5381498, 2990089, 9976687 ####[facility] [address] [place] [address] Bilirubin [Mass/Vol] 0.4 mg/dL Normal 0.0-1.1 [facility] Comment on above: Performed By: #### 2 195157, 04252143, 4809006, 7140365, 41683748, 86048153, 863133856, 3337566, 8018483, 44318311, 5817398, 1470958, 019873455, 02427660, 3638546, 0622617, 5323735, 9985015 ####[facility] [address] [place] [address] Calcium [Mass/Vol] 9.2 mg/dL Normal 8.9-11.1 [facility] Comment on above: Performed By: #### 2 089428, 64261913, 5161702, 4462945, 52880474, 68685300, 142192289, 9015405, 9617651, 70733647, 3705070, 2840863, 008861225, 82922409, 1545848, 3386005, 1465840, 4073499 ####[facility] [address] [place] [address] Chloride [Moles/Vol] 113 mmol/L High 101-111 [facility] Comment on above: Performed By: #### 2 971719, 85836766, 5023203, 0970389, 17147323, 06688775, 885737392, 8087473, 1535770, 56626710, 2381096, 9142632, 314740133, 13196656, 0759432, 1557311, 6686716, 1659394 ####[facility] [address] [place] [address] CO2 [Moles/Vol] 22 mmol/L Normal 21-31 [facility] Comment on above: Performed By: #### 2 604729, 82814253, 0685853, 2168679, 47216705, 43934135, 122884782, 3391335, 7048975, 55353123, 7983972, 7730088, 263842156, 86442513, 5307562, 3055221, 3528721, 5532567 ####[facility] [address] [place] [address] Creatinine [Mass/Vol] 0.7 mg/dL Normal 0.5-1.3 [facility] Comment on above: Performed By: #### 2 852715, 80415700, 8418082, 3043363, 02508481, 62316900, 338581084, 3745860, 4474236, 84526742, 8746708, 2881387, 860096417, 94091994, 6403375, 3591814, 9216309, 0297069 ####[facility] [address] [place] [address] Globulin (S) [Mass/Vol] 3.2 g/dL Normal 1.4-4.0 [facility] Comment on above: Performed By: #### 2 528586, 78902617, 3911365, 0749148, 66053174, 14181202, 406754367, 1198706, 4188650, 30668142, 2576219, 4505482, 351441023, 80350149, 1948835, 2400139, 8641505, 2265626 ####[facility] [address] [place] [address] Glucose [Mass/Vol] 103 mg/dL Normal 55-199 [facility] Comment on above: Result Comment: If t his glucose result represents a fasting glucose, interpretation should refer to the following reference range: 55-99 mg/dL Performed By: #### 2 098756, 91016826, 3110158, 2408645, 39093017, 85503306, 485039274, 7513710, 5016605, 44407117, 6214681, 0495999, 357236384, 42219304, 3556760, 2577621, 0495339, 8490482 ####[facility] [address] [place] [address] Potassium [Moles/Vol] 3.8 mmol/L Normal 3.5-5.3 [facility] Comment on above: Performed By: #### 2 665163, 73849281, 3683629, 4289308, 89235603, 14476960, 987131834, 0621566, 7801094, 64968917, 7311779, 0626770, 099627813, 83114772, 2182016, 5664904, 1204168, 0812720 ####[facility] [address] [place] [address] Protein [Mass/Vol] 7.2 g/dL Normal 6.0-7.8 [facility] Comment on above: Performed By: #### 2 680484, 61857741, 1303916, 7883015, 19258470, 80683733, 565800858, 0511616, 7595978, 60954430, 1932872, 8419969, 609834383, 68465014, 1028148, 2813322, 6306611, 0081118 ####[facility] [address] [place] [address] Sodium [Moles/Vol] 140 mmol/L Normal 135-145 [facility] Comment on above: Performed By: #### 2 009264, 73125756, 3950581, 6353936, 64634134, 07031204, 378275822, 9453314, 7847642, 29837911, 2347655, 0437017, 002550190, 55827970, 5894853, 0594068, 2751745, 8971684 ####[facility] [address] [place] [address] Urea nitrogen [Mass/Vol] 12 mg/dL Normal 5-21 [facility] Comment on above: Performed By: #### 2 500797, 99566170, 3548923, 7460353, 77710010, 56858584, 220727355, 9825292, 0633269, 91477356, 5408429, 6872772, 946901046, 36926162, 4839690, 6464052, 1610448, 0766227 ####[facility] [address] [place] [address] Urea nitrogen/Creatinine [Mass ratio] 17 No Units Normal 10-20 [facility] Comment on above: Performed By: #### 2 747151, 78075000, 9421778, 0030870, 33969254, 47754282, 604550426, 2415203, 0835233, 68736367, 1236950, 9121705, 185047656, 80248989, 3877831, 6888382, 4194493, 0023707 ####[facility] [address] [place] [address] Consent for Treatmenton Consent for Treatment [id number] D:127 Normal [facility] Ferritinon 03-19-2023 Ferritin [Mass/Vol] 6 ng/mL Low 11-307 [facility] Comment on above: Result Comment: NORM ALS MEN <30 YRS 16-132 ng/mL MEN >30 YRS 8-338 ng/mL WOMEN (PREMEN) 6-104 ng/mL WOMEN (POSTMEN) 12-210 ng/mL Performed By: #### 2 751398, 39394616, 1624967, 2218099, 10002472, 10242804, 897495753, 2148848, 7468182, 71729207, 2436755, 2228618, 315222200, 88092120, 6981672, 3322012, 9323686, 1060370 ####[facility] [address] [place] [address] Folateon 03-19-2023 Folate [Mass/Vol] 15.6 ng/mL Normal >=6.7 [facility] Comment on above: Performed By: #### 2 669191, 21931721, 8530468, 7823084, 28002552, 86975084, 304910270, 2708595, 4620739, 95129209, 5398195, 9375193, 111596894, 73543204, 8462149, 2029137, 6350613, 5238127 ####[facility] [address] [place] [address] Free T4on 03-19-2023 Free T4 [Mass/Vol] 0.88 ng/dL Normal 0.58-1.64 [facility] Comment on above: Performed By: #### 2 232437, 30562392, 1254314, 1769912, 68267815, 99702270, 197186237, 3023243, 1354531, 35965535, 5782297, 1860578, 155549846, 50072756, 5441213, 1141697, 6931555, 1987433 ####[facility] [address] [place] [address] HEMATOLOGYOrdered By: SYSTEM SYSTEM on 03-19-2023 Basophils/100 [...] Normal 4.0 - 11.0 E9/L FT HemeAutoSS PghT3umo 03-19-2023 HbA1c (Bld) [Mass fraction] 5.8 % Normal <=5.9 [facility] Comment on above: Performed By: #### 2 036103, 86178639, 4982787, 0558270, 50953228, 76432870, 324653974, 5064542, 7592141, 53183611, 7423812, 2165312, 063634483, 60474881, 9430699, 2394155, 0384393, 1063788 ####[facility] [address] [place] [address] Ironon 03-19-2023 Iron [Mass/Vol] 69 microgram/dL Normal 35-153 [facility] Comment on above: Performed By: #### 2 959657, 56065634, 6374441, 2144190, 47649325, 53081356, 208197719, 4014403, 8676711, 49940647, 1432973, 4133656, 204516687, 05391239, 8898721, 4681716, 6765586, 1822810 ####[facility] [address] [place] [address] Lipid Panelon 03-19-2023 Cholesterol [Mass/Vol] 167 mg/dL Normal 120-200 [facility] Comment on above: Performed By: #### 2 922331, 79202746, 7400131, 1931521, 96085199, 80574143, 840506794, 1904521, 7513336, 85421722, 5454697, 2192265, 480772131, 33992575, 0498354, 8099392, 4596784, 8569794 ####[facility] [address] [place] [address] Cholesterol in HDL [Mass/Vol] 72 mg/dL Invalid Interpretation Code [facility] Comment on above: Result Comment: HDL > or equal to 60 mg/dL: Low cardiovascular risk HDL < 40 mg/dL : High cardiovascular risk Performed By: #### 2 829869, 78790903, 1053082, 4213727, 38843527, 85109685, 396507603, 0954868, 9427488, 13463911, 1559957, 5857161, 886768489, 04083699, 6716329, 5219936, 4151219, 6928771 ####[facility] [address] [place] [address] Cholesterol in LDL [Mass/Vol] 72 mg/dL Normal <=129 [facility] Comment on above: Performed By: #### 2 193833, 43255599, 8423002, 2603416, 08695090, 86320348, 796133845, 8346499, 5145077, 43379675, 0462044, 1990407, 185883708, 08646073, 0565598, 8622025, 6758144, 8224206 ####[facility] [address] [place] [address] Cholesterol in VLDL [Mass/Vol] 14 mg/dL Normal 7-40 [facility] Comment on above: Performed By: #### 2 992289, 49007083, 1291506, 4493042, 93570552, 60029380, 147584408, 6390540, 4598738, 57757543, 8082067, 1905266, 284524232, 62616504, 7709230, 4927215, 8957004, 9371852 ####[facility] [address] [place] [address] Triglyceride [Mass/Vol] 69 mg/dL Normal <=149 [facility] Comment on above: Performed By: #### 2 436600, 63521546, 6988056, 3044861, 72814184, 57841085, 813092408, 5070091, 5107803, 98848895, 3695525, 5180986, 814695953, 75428217, 5521809, 2613550, 1812158, 4007128 ####[address] [place] [address] Magnesiumon 03-19-2023 Magnesium [Mass/Vol] 2.0 mg/dL Normal 1.3-2.4 [facility] Comment on above: Performed By: #### 2 014382, 59077417, 4943748, 9581221, 40600091, 54057567, 579815335, 1436792, 4913666, 50774308, 6845701, 2262446, 920720798, 21129799, 9497245, 9205882, 1745779, 5683624 ####[address] [place] [address] Physician Orderon 03-19-2023 Physician Order [id number] CD:127 Normal [facility] TIBC Calculatedon 03-19-2023 Iron binding capacity [Mass/Vol] 423 microgram/dL High 250-400 [facility] Comment on above: Performed By: #### 2 373101, 58839353, 2904197, 6866382, 24555587, 49976800, 429875931, 1776017, 2485524, 58591861, 5554046, 6044014, 151068199, 36425558, 9188179, 6776104, 9992219, 3321234 ####[facility] [address] [place] [address] Transferrin [Mass/Vol] 302 mg/dL Normal 200-370 [facility] Comment on above: Performed By: #### 2 396444, 77406818, 4075197, 4403311, 98041323, 47055259, 689470829, 7140660, 3522143, 15132413, 9420930, 7335192, 191317985, 84134983, 5024560, 2935482, 7542545, 6589299 ####[facility] [address] [place] [address] TSHon 03-19-2023 TSH Qn 0.61 m[IU]/L Normal 0.34-5.60 [facility] Comment on above: Performed By: #### 2 630247, 00628541, 7136398, 0093192, 04720340, 08075274, 721137292, 6245069, 1289441, 14783184, 0542969, 9666563, 213684667, 75427592, 6766514, 7673317, 6055898, 7120283 ####[facility] [address] [place] [address] Vit B12on 03-19-2023 Cobalamin (Vitamin B12) [Mass/Vol] 357 pg/mL Normal 50-1500 [facility] Comment on above: Performed By: #### 2 607453, 40599120, 6140071, 6262117, 89887963, 02546204, 097144369, 8260237, 5193634, 78445237, 8998755, 3047731, 723233321, 97915051, 0907570, 8538062, 1832146, 9885493 ####[facility] [address] [place] [address] Vitamin D 25 Hydroxyon 03-19 25-hydroxyvitamin D3 [Mass/Vol] 43.1 ng/mL Normal 30.0-100.0 [facility] Comment on above: Result Comment: Vit alberto D deficiency has been defined as a level of serum 25-OH vitamin D less than 20 ng/mL (1,2) by the [place] of [employer] and an Endocrine Society practice guideline. The Endocrine Society further defined vitamin D insufficiency as a level between 21 and 29 ng/mL (2). 1. IOM ([place] of [employer]). 2010. Dietary reference intakes for calcium and D. [place]: The National Academies Press. 2. Willard MF, Luisa HUBBARD, Nestor MALDONADO, et al. Evaluation, treatment, and prevention of vitamin D deficiency: an Endocrine Society clinical practice guideline. JCEM. 2010; 96 (7):1911-30. Performed By: #### 2 575730, 11521633, 1513219, 8289606, 87955630, 87587633, 484374579, 9243946, 5594786, 74476555, 3398110, 4004238, 419488431, 68181008, 7286209, 6059633, 7757973, 5988734 ####[facility] [address] [place] [address] eGFRon 03-19-2023 GFR/1.73 sq M.predicted among non-blacks MDRD (S/P/Bld) [Vol rate/Area] 116 mL/min/1.73 m2 Normal >=59 [facility] Comment on above: Order Comment: Order added by Discern Expert. Result Comment: Attacher gurpreet kidney disease could be indicated at eGFR's of less than 60 mL/min/1.73m2. Kidney failure is indicated at less than 15 mL/min/1.73m2. Performed By: #### 2 019763, 81482141, 1548236, 9794443, 94724463, 81827893, 117859308, 4023404, 3564627, 30418437, 7797579, 4862464, 308968855, 14195329, 8488971, 7892517, 4268596, 4332932 ####[facility] [address] [place] [address] MRA Head veins WO and W cont rast Ramón 01-29-2023 IMPRESSION: Unremarkable MRV head with and without contrast. [employer] Department Chair: WILLIAM Transcribe Date/Time: Jan 29 2023 2:40P Dictated by : JENNIFER RUVALCABA MD This examination was interpreted and the report reviewed and electronically signed by: JENNIFER RUVALCABA MD on Jan 29 2023 2:44PM [facility] DIVISION OF RADIOLOGY * * *Final Report* * * DATE OF EXAM: Jan 29 2023 1:10PM [facility] 0336 - MRV BRAIN WO/W IVCON / PROCEDURE REASON: Idiopathic intracranial hypertension * * * * Physician Interpretation * * * * EXAMINATION: MRV BRAIN WO/W IVCON CLINICAL HISTORY: Idiopathic intracranial hypertension. TECHNIQUE: Intracranial 2-D scjr-sn-ehumin and postcontrast MRV with post-processing performed at the modality and 2D multiplanar and 3D maximum intensity projections were created, reviewed and archived. Contrast dose: 17 mL Dotarem administered intravenously. MQ: MRAB_4 COMPARISON: None. RESULT: INTRACRANIAL MRV: There is no evidence of significant narrowing, occlusion, or thrombosis of the dural venous sinuses. Note is made of a partially empty sella. DIVISION OF RADIOLOGY Provider, [facility] - 01/29/2023 * * *Final Report* * * DATE OF EXAM: Jan 29 2023 1:10PM [facility] 0336 - MRV BRAIN WO/W IVCON / PROCEDURE REASON: Idiopathic intracranial hypertension * * * * Physician Interpretation * * * * EXAMINATION: MRV BRAIN WO/W IVCON CLINICAL HISTORY: Idiopathic intracranial hypertension. TECHNIQUE: Intracranial 2-D gxot-gg-drnpzj and postcontrast MRV with post-processing performed at [...] Unremarkable MRV head with and without contrast. [employer] Department Chair: WILLIAM Transcribe Date/Time: Jan 29 2023 2:40P Dictated by : JENNIFER RUVALCABA MD This examination was interpreted and the report reviewed and electronically signed by: JENNIFER RUVALCABA MD on Jan 29 2023 2:44PM EST [facility] Radiology Study observation (narrative) [facility] MRA Head veins WO and W cont rast IVOrdered By: Ccf Provider on 01-29-2023 [facility] CHEMISTRYOrdered By: SYSTEM SYSTEM on [...] hCG Ql Negative (01/15/23 11:31 AM) Normal [facility] Man Sero URINALYSISOrdered By: Jacki santana on [...] PM) Normal Negative [facility] UA Auto SS Arrowsmith.plasma/Arrowsmith .RBC (Bld) [Mass ratio] 0-3 /HPF Normal [...] PM) Invalid Interpretation Code 1.005 - 1.030 [facility] UA Auto SS UA Spec Desc Clean Catch (01/15/23 12:51 PM) Normal [facility] UA Auto SS Urobilinogen Qn (U) 0.0202202 {Lucila'U}/dL Normal 0.0 - 1.0 EU/dL [facility] UA Auto SS WBC Auto Ql (U) 1+ *ABN* (01/15/23 12:51 PM) Invalid Interpretation Code Negative [facility] UA Auto SS WBC LM.HPF (Urine sed) [#/Area] 0-5 /HPF Normal 0-5/HPF [facility] UA Auto SS BLOOD BANKOrdered By: Myrna Contreras on 12-05-2022 ABO/Rh Interp Negative Invalid Interpretation Code [facility] BB Subsection ABSC Gel Interp Negative (12/05/22 7:24 AM) Normal [facility] BB Subsection URINALYSISOrdered By: Kimberli Martin on 12-05-2022 Bilirubin Ql (U) Negative (12/05/22 10:05 AM) Normal Negative [facility] UA Auto SS Clarity (U) Clear (12/05/22 [...] AM) Normal Negative [facility] UA Auto SS Arrowsmith.plasma/[place] .RBC (Bld) [Mass ratio] 0-3 /HPF Normal [...] Spec Desc Catheter (12/05/22 10:05 AM) Normal [facility] UA Auto SS Urobilinogen Qn (U) 1.3824112 {Lucila'U}/dL Normal 0.0 - 1.0 EU/dL [facility] [...] CNOV Office Visit (NEADFV ) SHAZIA CHOU ([id number]) 1990 F Date Time Provider Department 11/20/22 8:00 AM EILEEN ALVAREZ During your visit today, we recorded the following information about you: Pulse Blood pressure Weight Height 67/minute 137/81 85.7 kg 1.702 m Last Period 10/23/22 Eileen Alvarez MD 11/20/2022 10:33 AM Signed [facility] General Neurology New Patient Evaluation [...] due to congenital deformity, seen in the [facility] for General Neurology for: [...] her eyes. She has never seen an internal combustion engine assembler. CSF protein 24, Glu 55, Pro 28, [...] due to congenital deformity, seen in the [facility] for General Neurology for: [...] she agreed. She needs to follow with internal combustion engine assembler every 6 months. In some patients with intracranial hypertension, there might be a concurrent transverse sinus stenosis and transverse sinus stenting may resolve the symptoms. I will do MRV. --HTN --H depression --Headache: there are a (more content not included)... Normal [facility] CBC AUTO DIFFon 10-30-2022 BASO # 0.0 103/ul Normal 0.0-0.1 [facility] Comment on above: Performed By: #### C JENNIE PATRICK LIPA #### [facility] [address] [address] [address] Manuel Sandhu Basophils/100 WBC (Bld) 0.5 % Normal 0.2-2.0 [facility] Comment on above: Performed By: #### C JENNIE PATRICK LIPA #### [facility] [address] [address] [address] Manuel Sandhu EO # 0.1 103/ul Normal 0.0-0.7 [facility] Comment on above: Performed By: #### C JENNIE PATRICK LIPA #### [facility] [address] [place] [address] Dr. Manuel Sandhu Eosinophils/100 WBC (Bld) 1.6 % Normal 0.9-7.0 [facility] Comment on above: Performed By: #### C JENNIE PATRICK LIPA #### [facility] [address] [place] [address] Dr. Manuel Sandhu Erythrocyte distribution width (RBC) [Ratio] 13.8 % Normal 11.0-15.0 [facility] Comment on above: Performed By: #### C JENNIE PATRICK LIPA #### [facility] [address] [place] [address] Dr. Manuel Sandhu Hematocrit (Bld) [Volume fraction] 38.7 % Normal 36.0-48.0 [facility] Comment on above: Performed By: #### C JENNIE PATRICK LIPA #### [facility] [address] [place] [address] Dr. Manuel Sandhu Hemoglobin (Bld) [Mass/Vol] 12.9 g/dL Normal 12.0-16.0 [facility] Comment on above: Performed By: #### C JENNIE PATRICK LIPA #### [facility] [address] [place] [address] Dr. Manuel Sandhu IG # 0.03 10e3/ul Normal 0.00-0.03 [facility] Comment on above: Performed By: #### C JENNIE PATRICK LIPA #### [facility] [address] [place] [address] Dr. Manuel Sandhu IG % 0.4 % Normal 0.0-0.5 [facility] Comment on above: Performed By: #### C JENNIE PATRICK LIPA #### [facility] [address] [place] [address] Dr. Manuel Sandhu LYMPH # 2.1 103/ul Normal 1.2-3.8 [facility] Comment on above: Performed By: #### C JENNIE PATRICK, LIPA #### [facility] [address] [place] [address] Dr. Manuel Sandhu Lymphocytes/100 WBC (Bld) 25.1 % Normal 20.5-60.0 [facility] Comment on above: Performed By: #### C MP, JENNIE, LIPA #### [facility] [address] [place] [address] Dr. Manuel Sandhu MANUAL DIFF REQ NO Normal [facility] Comment on above: Performed By: #### C MP, JENNIE, LIPA #### [facility] [address] [place] [address] Dr. Manuel Sandhu MCH (RBC) [Entitic mass] 32.0 pg Normal 26.7-34.0 [facility] Comment on above: Performed By: #### C MP JENNIE, LIPA #### [facility] [address] [place] [address] Dr. Manuel Sandhu MCHC (RBC) [Mass/Vol] 33.3 g/dL Normal 29.9-35.2 [facility] Comment on above: Performed By: #### C CELINA JENNIE, LIPA #### [facility] [address] [place] [address] Dr. Manuel Sandhu MCV (RBC) [Entitic vol] 96.0 fL Normal 81.0-99.0 [facility] Comment on above: Performed By: #### C CELINA JENNIE, LIPA #### [facility] [address] [place] [address] Dr. Manuel Sandhu MONO # 0.5 103/ul Normal 0.3-0.8 [facility] Comment on above: Performed By: #### C MP JENNIE, LIPA #### [facility] [address] [place] [address] Dr. Manuel Sandhu Monocytes/100 WBC (Bld) 5.7 % Normal 1.7-12.0 [facility] Comment on above: Performed By: #### C MP JENNIE, LIPA #### [facility] [address] [place] [address] Dr. Manuel Sandhu NEUT # 5.6 103/ul Normal 1.4-6.5 [facility] Comment on above: Performed By: #### C MP, JENNIE, LIPA #### [facility] [address] [address] [address] Manuel Sandhu Neutrophils/100 WBC (Bld) 66.7 % Normal 43.0-75.0 [facility] Comment on above: Performed By: #### C JENNIE PATRICK LIPA #### [facility] [address] [place] [address] Dr. Manuel Sandhu Platelet mean volume (Bld) [Entitic vol] 10.9 fL Normal 9.5-13.5 [facility] Comment on above: Performed By: #### C JENNIE PATRICK, LIPA #### [facility] [address] [place] [address] Dr. Manuel Sandhu PLT 310 103/ul Normal 150-450 [facility] Comment on above: Performed By: #### C JENNIE PATRICK, LIPA #### [facility] [address] [place] [address] Dr. Manuel Sandhu RBC 4.03 106/ul Critically low 4.20-5.40 [facility] Comment on above: Performed By: #### C JENNIE PATRICK LIPA #### [facility] [address] [place] [address] Dr. Manuel Sandhu WBC 8.4 103/ul Normal 4.0-11.0 [facility] Comment on above: Performed By: #### C JENNIE PATRICK, LIPA #### [facility] [address] [place] [address] Dr. Manuel Sandhu ER URINE PROFILEon 3 Bilirubin Ql (U) Negative Normal NEGATIVE [facility] Comment on above: Performed By: #### U MICRO, ERUR #### [facility] [address] [place] [address] Dr. Manuel Sandhu Clarity (U) CLEAR Normal CLEAR [facility] Comment on above: Performed By: #### U MICRO, ERUR #### [facility] [address] [place] [address] Dr. Manuel Sandhu Color (U) LT. YELLOW Normal YELLOW [facility] Comment on above: Performed By: #### U MICRO, ERUR #### [facility] [address] [place] [address] Dr. Manuel CUNHA A micrscopic examination will be performed if indicated. Normal [facility] Comment on above: Performed By: #### U MICRO, ERUR #### [facility] [address] [address] [address] Manuel Sandhu Glucose Ql (U) Negative Normal NEGATIVE [facility] Comment on above: Performed By: #### U MICRO, ERUR #### [facility] [address] [address] [address] Manuel Sandhu Hemoglobin Ql (U) LARGE Abnormal NEGATIVE [facility] Comment on above: Performed By: #### U MICRO, ERUR #### [facility] [address] [address] [address] Manuel Sandhu Ketones Ql (U) Negative Normal NEGATIVE [facility] Comment on above: Performed By: #### U MICRO, ERUR #### [facility] [address] [place] [address] Dr. Manuel Sandhu LEUKOCYTES TRACE Abnormal NEGATIVE [facility] Comment on above: Performed By: #### U MICRO, ERUR #### [facility] [address] [address] [address] Manuel Sandhu Nitrite Ql (U) Negative Normal NEGATIVE [facility] Comment on above: Performed By: #### U MICRO, ERUR #### [facility] [address] [place] [address] Dr. Manuel Sandhu pH (U) 6.5 [pH] Normal 5-9 [facility] Comment on above: Performed By: #### U MICRO, ERUR #### [facility] [address] [address] [address] Manuel Sandhu SPEC GRAVITY <=1.005 Abnormal 1.005-<=1.02 5 [facility] Comment on above: Performed By: #### U MICRO, ERUR #### [facility] [address] [address] [address] Manuel Sandhu UA PROTEIN Negative Normal NEGATIVE/ TRACE [facility] Comment on above: Performed By: #### U MICRO, ERUR #### [facility] [address] [place] [address] Dr. Manuel Sandhu UR MICRO IND INDICATED Normal [facility] Comment on above: Performed By: #### U MICRO, ERUR #### [facility] [address] [address] [address] Manuel Sandhu Urobilinogen Qn (U) 0.2 {Lucila'U}/dL Normal 0.2 - 1. 0 [facility] Comment on above: Performed By: #### U MICRO, ERUR #### [facility] [address] [place] [address] Dr. Manuel Sandhu PROF CHEM 8 (BAS METB)on Anion gap [Moles/Vol] 11.7 mmol/L Normal [facility] Comment on above: Performed By: #### C MP, JENNIE, LIPA #### [facility] [address] [place] [address] Dr. Manuel Sandhu Calcium [Mass/Vol] 9.1 mg/dL Normal 8.5-10.1 [facility] Comment on above: Performed By: #### C MP, JENNIE, LIPA #### [facility] [address] [address] [address] Manuel Sandhu Chloride [Moles/Vol] 105 mmol/L Normal 98-107 [facility] Comment on above: Performed By: #### C MP, JENNIE, LIPA #### [facility] [address] [address] [address] Manuel Sandhu CO2 [Moles/Vol] 26.8 mmol/L Normal 21.0-32.0 [facility] Comment on above: Performed By: #### C MP, JENNIE, LIPA #### [facility] [address] [address] [address] Manuel Sandhu Creatinine [Mass/Vol] 0.62 mg/dL Normal 0.55-1.02 [facility] Comment on above: Performed By: #### C MP, JENNIE, LIPA #### [facility] [address] [address] [address] Manuel Sandhu EGFR-AF CENTRAL AFRICAN >60 Normal >=60 [facility] Comment on above: Performed By: #### C CELINA JENNIE, LIPA #### [facility] [address] [place] [address] Dr. Manuel Sandhu EGFR-NON AF CENTRAL AFRICAN >60 Normal >=60 [facility] Comment on above: Performed By: #### C CELINA JENNIE, LIPA #### [facility] [address] [place] [address] Dr. Manuel Sandhu Glucose [Mass/Vol] 92 mg/dL Normal 74-106 [facility] Comment on above: Performed By: #### C CELINA JENNIE, LIPA #### [facility] [facility] [address] [place] [address] Dr. Manuel Sandhu Potassium [Moles/Vol] 3.5 mmol/L Normal 3.5-5.1 [facility] Comment on above: Performed By: #### C JENNIE PATRICK, LIPA #### [facility] [address] [place] [address] Dr. Manuel Sandhu Sodium [Moles/Vol] 140 mmol/L Normal 136-145 [facility] Comment on above: Performed By: #### C JENNIE PATRICK, LIPA #### [facility] [address] [place] [address] Dr. Manuel Sandhu Urea nitrogen [Mass/Vol] 8.0 mg/dL Normal 7.0-18.0 [facility] Comment on above: Performed By: #### C JENNIE PATRICK, LIPA #### [facility] [address] [place] [address] Dr. Manuel Sandhu Urea nitrogen/Creatinine [Mass ratio] 12.9 mg/mg Normal [facility] Comment on above: Performed By: #### C JENNIE PATRICK, LIPA #### [facility] [address] [place] [address] Dr. Manuel Sandhu URINE MICROSCOPIC ONLYon BACTERIA NONE SEEN Normal NONE SEEN [facility] Comment on above: Performed By: #### U MICRO, ERUR #### [facility] [address] [place] [address] Dr. Manuel Sandhu Bacteria identified Cx Nom (U) NOT INDICATED Normal [facility] Comment on above: Performed By: #### U MICRO, ERUR #### [facility] [address] [address] [address] Manuel Sandhu CAST NONE SEEN Normal NONE SEEN [facility] Comment on above: Performed By: #### U MICRO, ERUR #### [facility] [address] [address] [address] Manuel Sandhu Crystals LM Nom (Urine sed) NONE SEEN Normal NONE SEEN [facility] Comment on above: Performed By: #### U MICRO, ERUR #### [facility] [address] [address] [address] Manuel Sandhu Epithelial cells LM Ql (Urine sed) FEW Abnormal NONE SEEN /RARE [facility] Comment on above: Performed By: #### U MICRO, ERUR #### [facility] [address] [place] [address] Dr. Manuel Sandhu MUCOUS TRACE Abnormal NONE SEEN [facility] Comment on above: Performed By: #### U MICRO, ERUR #### [facility] [address] [address] [address] Manuel Sandhu RBC 5-10 Abnormal 0-2 [facility] Comment on above: Performed By: #### U MICRO, ERUR #### [facility] [address] [place] [address] Dr. Manuel Sandhu WBC 2-5 Abnormal NONE SEEN [facility] Comment on above: Performed By: #### U MICRO, ERUR #### [facility] [address] [address] [address] Manuel Sandhu No Panel InformationOrdered By: Dorita Niño on 08-19-2022 CSF Glucose 55 mg/dL 40-70 [facility] CSF Total Protein 24 mg/dL 15-45 [facility] [place] CBC AUTO DIFFon 08-16-2022 BASO # 0.1 103/ul Normal 0.0-0.1 [facility] Comment on above: Performed By: #### U MICRO, ERUR #### [facility] [address] [place] [address] Dr. Manuel Sandhu Basophils/100 WBC (Bld) 0.4 % Normal 0.2-2.0 [facility] Comment on above: Performed By: #### U MICRO, ERUR #### [facility] [address] [place] [address] Dr. Manuel Sandhu EO # 0.2 103/ul Normal 0.0-0.7 [facility] Comment on above: Performed By: #### U MICRO, ERUR #### [facility] [address] [place] [address] Dr. Manuel Sandhu Eosinophils/100 WBC (Bld) 1.8 % Normal 0.9-7.0 [facility] Comment on above: Performed By: #### U MICRO, ERUR #### [facility] [address] [place] [address] Dr. Manuel Sandhu Erythrocyte distribution width (RBC) [Ratio] 13.6 % Normal 11.0-15.0 [facility] Comment on above: Performed By: #### U MICRO, ERUR #### [facility] [address] [place] [address] Dr. Manuel Sandhu Hematocrit (Bld) [Volume fraction] 35.8 % Critically low 36.0-48.0 [facility] Comment on above: Performed By: #### U MICRO, ERUR #### [facility] [address] [place] [address] Dr. Manuel Sandhu Hemoglobin (Bld) [Mass/Vol] 12.2 g/dL Normal 12.0-16.0 [facility] Comment on above: Performed By: #### U MICRO, ERUR #### [facility] [address] [place] [address] Dr. Manuel Sandhu IG # 0.05 10e3/ul Critically high 0.00-0.03 [facility] Comment on above: Performed By: #### U MICRO, ERUR #### [facility] [address] [place] [address] Dr. Manuel Sandhu IG % 0.4 % Normal 0.0-0.5 [facility] Comment on above: Performed By: #### U MICRO, ERUR #### [facility] [address] [address] [address] Manuel Sandhu LYMPH # 2.0 103/ul Normal 1.2-3.8 [facility] Comment on above: Performed By: #### U MICRO, ERUR #### [facility] [address] [address] [address] Manuel Sandhu Lymphocytes/100 WBC (Bld) 18.1 % Critically low 20.5-60.0 [facility] Comment on above: Performed By: #### U MICRO, ERUR #### [facility] [address] [place] [address] Dr. Manuel Sandhu MANUAL DIFF REQ NO Normal [facility] Comment on above: Performed By: #### U MICRO, ERUR #### [facility] [address] [place] [address] Dr. Manuel Sandhu MCH (RBC) [Entitic mass] 32.0 pg Normal 26.7-34.0 [facility] Comment on above: Performed By: #### U MICRO, ERUR #### [facility] [address] [place] [address] Dr. Manuel Sandhu MCHC (RBC) [Mass/Vol] 34.1 g/dL Normal 29.9-35.2 [facility] Comment on above: Performed By: #### U MICRO, ERUR #### [facility] [address] [place] [address] Dr. Manuel Sandhu MCV (RBC) [Entitic vol] 94.0 fL Normal 81.0-99.0 [facility] Comment on above: Performed By: #### U MICRO, ERUR #### [facility] [address] [place] [address] Dr. Manuel Sandhu MONO # 0.7 103/ul Normal 0.3-0.8 [facility] Comment on above: Performed By: #### U MICRO, ERUR #### [facility] [address] [place] [address] Dr. Manuel Sandhu Monocytes/100 WBC (Bld) 5.8 % Normal 1.7-12.0 [facility] Comment on above: Performed By: #### U MICRO, ERUR #### [facility] [address] [address] [address] Manuel Sandhu NEUT # 8.2 103/ul Critically high 1.4-6.5 [facility] Comment on above: Performed By: #### U MICRO, ERUR #### [facility] [address] [address] [address] Manuel Sandhu Neutrophils/100 WBC (Bld) 73.5 % Normal 43.0-75.0 [facility] Comment on above: Performed By: #### U MICRO, ERUR #### [facility] [address] [address] [address] Manuel Sandhu Platelet mean volume (Bld) [Entitic vol] 11.3 fL Normal 9.5-13.5 [facility] Comment on above: Performed By: #### U MICRO, ERUR #### [facility] [address] [address] [address] Manuel Sandhu PLT 284 103/ul Normal 150-450 [facility] Comment on above: Performed By: #### U MICRO, ERUR #### [facility] [address] [address] [address] Manuel Sandhu RBC 3.81 106/ul Critically low 4.20-5.40 [facility] Comment on above: Performed By: #### U MICRO, ERUR #### [facility] [address] [address] [address] Manuel Sandhu WBC 11.2 103/ul Critically high 4.0-11.0 [facility] Comment on above: Performed By: #### U MICRO, ERUR #### [facility] [address] [address] [address] Manuel Sandhu D-DIMERon 08-16-2022 D-DIMER 0.34 mg/L FEU Normal <=0.59 [facility] Comment on above: Performed By: #### U MICRO, ERUR #### [facility] [address] [address] [address] Manuel Sandhu D-DIMER COMMENTS SEE BELOW Normal [facility] Comment on above: Result Comment: Incr [...] Performed By: #### U MICRO, ERUR #### [facility] [address] [address] [address] Manuel Sandhu PROF CHEM 8 (BAS METB)on Anion gap [Moles/Vol] 10.6 mmol/L Normal [facility] Comment on above: Performed By: #### I NFLUAB #### [facility] [address] [address] [address] Manuel Sandhu Calcium [Mass/Vol] 9.2 mg/dL Normal 8.5-10.1 [facility] Comment on above: Performed By: #### I NFLUAB #### [facility] [address] [address] [address] Manuel Sandhu Chloride [Moles/Vol] 103 mmol/L Normal 98-107 [facility] Comment on above: Performed By: #### I NFLUAB #### [facility] [address] [address] [address] Manuel Sandhu CO2 [Moles/Vol] 28.4 mmol/L Normal 21.0-32.0 [facility] Comment on above: Performed By: #### I NFLUAB #### [facility] [address] [address] [address] Manuel Sandhu Creatinine [Mass/Vol] 0.61 mg/dL Normal 0.55-1.02 [facility] Comment on above: Performed By: #### I NFLUAB #### [facility] [address] [address] [address] Manuel Sandhu EGFR-AF CENTRAL AFRICAN >60 Normal >=60 [facility] Comment on above: Performed By: #### I NFLUAB #### [facility] [address] [address] [address] Manuel Sandhu EGFR-NON AF CENTRAL AFRICAN >60 Normal >=60 [facility] Comment on above: Performed By: #### I NFLUAB #### [facility] [address] [address] [address] Manuel Sandhu Glucose [Mass/Vol] 90 mg/dL Normal 74-106 [facility] Comment on above: Performed By: #### I NFLUAB #### [facility] [address] [address] [address] Manuel Sandhu Potassium [Moles/Vol] 4.0 mmol/L Normal 3.5-5.1 [facility] Comment on above: Performed By: #### I NFLUAB #### [facility] [address] [address] [address] Manuel Sandhu Sodium [Moles/Vol] 138 mmol/L Normal 136-145 [facility] Comment on above: Performed By: #### I NFLUAB #### [facility] [address] [address] [address] Manuel Sandhu Urea nitrogen [Mass/Vol] 16.0 mg/dL Normal 7.0-18.0 [facility] Comment on above: Performed By: #### I NFLUAB #### [facility] [address] [address] [address] Manuel Sandhu Urea nitrogen/Creatinine [Mass ratio] 26.2 mg/mg Normal [facility] Comment on above: Performed By: #### I NFLUAB #### [facility] [address] [address] [address] Manuel Sandhu XR CHEST 1 Von [...] YOLI FRANKS Date: 2022-08-16 14:16 Normal [facility] Albumin [Mass/volume] in Ser um or PlasmaOrdered By: Sangeetha Peña on 08-12-2022 Albumin [Mass/Vol] 3.2 g/dL 3.2-5.5 [facility] Basophils Auto (Bld) [#/Vol] Ordered By: Sangeetha Peña on 08-12-2022 Basophils (Bld) [#/Vol] 0.1 10*3/uL 0.0-0.2 [facility] Basophils/100 WBC Auto (Bld) Ordered By: Sangeetha Peña on 08-12-2022 Basophils/100 WBC (Bld) 0.7 % . [facility] C reactive protein [Mass/vol ume] in Serum or PlasmaOrdered By: Sangeetha Peña on 08-12-2022 CRP [Mass/Vol] 0.5 mg/dL 0.0-1.0 [facility] Creatinine and Glomerular fi ltration rate.predicted panel (S/P/Bld)Ordered By: Sangeetha Peña on 08-12-2022 Creatinine [Mass/Vol] 0.65 mg/dL 0.44-1.03 [facility] Eosinophils Auto (Bld) [#/Vo l]Ordered By: Sangeetha Peña on 08-12-2022 Eosinophils (Bld) [#/Vol] 0.4 10*3/uL 0.0-0.45 [facility] Eosinophils/100 WBC Auto (Bl d)Ordered By: Sangeetha Peña on 08-12-2022 Eosinophils/100 WBC (Bld) 5.2 % . [facility] Erythrocyte distribution wid th Auto (RBC) [Ratio]Ordered By: Sangeetha Peña on 08-12-2022 Erythrocyte distribution width (RBC) [Ratio] 14.4 % 11.9-15.3 [facility] Erythrocyte sedimentation ra te by Photometric methodOrdered By: Dorita Niño on 08-12-2022 ESR Photometric method (Bld) [Velocity] 3 mm/hr 0-19 [facility] Estimated glomerular filtrat ion rate (GFR) non- AmericanOrdered By: Sangeetha Peña on 08-12-2022 GFR/1.73 sq M.predicted among non-blacks MDRD (S/P/Bld) [Vol rate/Area] > 60 mL/Min [facility] Folate [Mass/volume] in Seru m or PlasmaOrdered By: Lizzeth Malave on 08-12-2022 Folate [Mass/Vol] 15.3 ng/mL >5.9 [facility] [place] Comment on above: Folate reference ran ge: >5.9 ng/mlThe WHO technical consultation on folate and vitamin [id number] has determined that folate concentrations lessthan 4 ng/ml are considered deficient. Globulin Calc (S) [Mass/Vol] Ordered By: Sangeetha Peña on 08-12-2022 Globulin (S) [Mass/Vol] 2.4 g/dL [facility] HCG ( test) IA.rapi d Ql (U)Ordered By: Lizzeth Malave on 08-12-2022 HCG ( test) Ql (U) Negative [facility] Hematocrit Auto (Bld) [Volum e fraction]Ordered By: Sangeetha Peña on 08-12-2022 Hematocrit (Bld) [Volume fraction] 34.6 % 34.0-46.4 [facility] Hemoglobin [Mass/volume] in BloodOrdered By: Sangeetha Peña on 08-12-2022 Hemoglobin (Bld) [Mass/Vol] 11.3 g/dL 11.8-15.4 [facility] - Chemistry and C hemistry - challengeOrdered By: Lizzeth Malave on 08-12-2022 Cobalamin (Vitamin B12) [Mass/Vol] 610 pg/mL 180-914 [facility] Magnesium [Mass/Vol] 1.9 mg/dL 1.6-2.6 [facility] - Hematology and Cell countsOrdered By: Sangeetha Peña on 08-12-2022 Nucleated RBC/100 WBC (Bld) [Ratio] 0.1 % 0-0.5 [facility] Leukocytes [#/volume] in Blo od by Automated countOrdered By: Sangeetha Peña on 08-12-2022 WBC (Bld) [#/Vol] 8.3 10*3/uL 4.5-11.0 [facility] Lymphocytes Auto (Bld) [#/Vo l]Ordered By: Sangeetha Peña on 08-12-2022 Lymphocytes (Bld) [#/Vol] 2.3 10*3/uL 1.00-4.8 [facility] Lymphocytes/100 WBC Auto (Bl d)Ordered By: Sangeetha Peña on 08-12-2022 Lymphocytes/100 WBC (Bld) 27.4 % . [facility] MCH Auto (RBC) [Entitic mass ]Ordered By: Sangeetha Peña on 08-12-2022 MCH (RBC) [Entitic mass] 32.0 pg 24.7-34.3 [facility] MCHC Auto (RBC) [Mass/Vol]Or dered By: Sangeetha Peña on 08-12-2022 MCHC (RBC) [Mass/Vol] 32.8 g/dL 32.0-35.0 [facility] MCV Auto (RBC) [Entitic vol] Ordered By: Sangeetha Peña on 08-12-2022 MCV (RBC) [Entitic vol] 97.7 fL 80-100 [facility] Monocytes Auto (Bld) [#/Vol] Ordered By: Sangeetha Peña on 08-12-2022 Monocytes (Bld) [#/Vol] 0.7 10*3/uL 0.0-0.8 [facility] Monocytes/100 WBC Auto (Bld) Ordered By: Sangeetha Peña on 08-12-2022 Monocytes/100 WBC (Bld) 8.7 % . [facility] Neutrophils Auto (Bld) [#/Vo l]Ordered By: Sangeetha Peña on 08-12-2022 Neutrophils (Bld) [#/Vol] 4.8 10*3/uL 1.8-7.7 [facility] Neutrophils/100 WBC Auto (Bl d)Ordered By: Sangeetha Peña on 08-12-2022 Neutrophils/100 WBC (Bld) 58.0 % . [facility] No Panel InformationOrdered By: Sangeetha Peña on 08-12-2022 Estimated GFR () > 60 mL/Min [facility] Comment on above: GFR estimated refere nce range: According to KDOQI guidelines, <60 ml/min/1.73m2 is sufficient to diagnose a patient with chronic kidney disease. Pharmacy Creatinine Clearance (Chem 140.31 [facility] Platelet mean volume Auto (B ld) [Entitic vol]Ordered By: Sangeetha Peña on 08-12-2022 Platelet mean volume (Bld) [Entitic vol] 10.2 fL 6.3-10.7 [facility] Platelets Auto (Bld) [#/Vol] Ordered By: Sangeetha Peña on 08-12-2022 Platelets (Bld) [#/Vol] 263 10*3/uL 150-450 [facility] Protein [Mass/volume] in Ser um or PlasmaOrdered By: Sangeetha Peña on 08-12-2022 Protein [Mass/Vol] 5.6 g/dL 6.1-7.9 [facility] RBC Auto (Bld) [#/Vol]Ordere d By: Sangeetha Peña on 08-12-2022 RBC (Bld) [#/Vol] 3.54 10*6/uL 3.60-5.00 [facility] Serum or plasma alanine alberto otransferase measurement without P-5'-P (enzymatic activiOrdered By: Sangeetha Peña on 08-12-2022 ALT No additional P-5'-P [Catalytic activity/Vol] 22 U/L 10-60 [facility] Serum or plasma albumin/glob ulin mass ratioOrdered By: Sangeetha Peña on 08-12-2022 Albumin/Globulin [Mass ratio] 1.3 {ratio} [facility] Serum or plasma alkaline marquez sphatase measurement (enzymatic activity/volume)Ordered By: Sangeetha Peña on 08-12-2022 ALP [Catalytic activity/Vol] 54 U/L 32-92 [facility] Serum or plasma anion gap de terminationOrdered By: Sangeetha Peña on 08-12-2022 Anion gap [Moles/Vol] 10.6 mmol/L 6.0-15.0 [facility] Serum or plasma aspartate am inotransferase measurement (enzymatic activity/volume)Ordered By: Sangeetha Peña on 08-12-2022 AST [Catalytic activity/Vol] 20 U/L 10-42 [facility] Serum or plasma calcium audie urement (mass/volume)Ordered By: Sangeetha Peña on 08-12-2022 Calcium [Mass/Vol] 8.8 mg/dL 8.2-10.2 [facility] Serum or plasma chloride nimisha surement (moles/volume)Ordered By: Sangeetha Peña on 08-12-2022 Chloride [Moles/Vol] 105 mmol/L 95-114 [facility] Serum or plasma glucose audie urement (mass/volume)Ordered By: Sangeetha Peña on 08-12-2022 Glucose [Mass/Vol] 85 mg/dL 70-100 [facility] Comment on above: ADA recommended refe rence rangeRandom Glucose Reference Range is dependent on time and content of last meal. Glucose of more than 200 mg/dL in a nonstressed, ambulatory subject supports the diagnosis of Diabetes Mellitus. Serum or plasma potassium me asurement (moles/volume)Ordered By: Sangeetha Peña on 08-12-2022 Potassium [Moles/Vol] 4.2 mmol/L 3.5-5.1 [facility] Serum or plasma sodium measu rement (moles/volume)Ordered By: Sangeetha Peña on 08-12-2022 Sodium [Moles/Vol] 140 mmol/L 136-146 [facility] Serum or plasma total biliru bin measurement (mass/volume)Ordered By: Sangeetha Peña on 08-12-2022 Bilirubin [Mass/Vol] 0.5 mg/dL 0.3-1.2 [facility] Serum or plasma total carbon dioxide measurement (moles/volume)Ordered By: Sangeetha Peña on 08-12-2022 CO2 [Moles/Vol] 28.6 mmol/L 22.0-30.0 [facility] Serum or plasma urea nitroge n measurement (mass/volume)Ordered By: Sangeetha Peña on 08-12-2022 Urea nitrogen [Mass/Vol] 7 mg/dL 9-23 [facility] TSH DL <= 0.005 mIU/L QnOrde red By: Lizzeth Malave on 08-12-2022 TSH Qn 1.79 m[IU]/L 0.45-5.33 [facility] Troponin I.cardiac [Mass/vol ume] in Serum or Plasma by High sensitivity methodOrdered By: Lizzeth Malave on 08-12-2022 Troponin I.cardiac High sensitivity method [Mass/Vol] < 3 pg/mL 0-15 [facility] CBC AUTO DIFFon 08-11-2022 BASO # 0.1 103/ul Normal 0.0-0.1 [facility] Comment on above: Performed By: #### C JENNIE PATRICK LIPA #### [facility] [address] [place] [address] Dr. Manuel Sandhu Basophils/100 WBC (Bld) 0.5 % Normal 0.2-2.0 [facility] Comment on above: Performed By: #### C JENNIE PATRICK LIPA #### [facility] [address] [place] [address] Dr. Manuel Sandhu EO # 0.4 103/ul Normal 0.0-0.7 [facility] Comment on above: Performed By: #### C JENNIE PATRICK LIPA #### [facility] [address] [place] [address] Dr. Manuel Sandhu Eosinophils/100 WBC (Bld) 2.4 % Normal 0.9-7.0 [facility] Comment on above: Performed By: #### C JENNIE PATRICK LIPA #### [facility] [address] [place] [address] Dr. Manuel Sandhu Erythrocyte distribution width (RBC) [Ratio] 14.1 % Normal 11.0-15.0 [facility] Comment on above: Performed By: #### C JENNIE PATRICK LIPA #### [facility] [address] [place] [address] Dr. Manuel Sandhu Hematocrit (Bld) [Volume fraction] 39.4 % Normal 36.0-48.0 [facility] Comment on above: Performed By: #### C JENNIE PATRICK LIPA #### [facility] [address] [address] [address] Manuel Sandhu Hemoglobin (Bld) [Mass/Vol] 13.3 g/dL Normal 12.0-16.0 [facility] Comment on above: Performed By: #### C MP, JENNIE, LIPA #### [facility] [address] [address] [address] Manuel Sandhu IG # 0.07 10e3/ul Critically high 0.00-0.03 [facility] Comment on above: Performed By: #### C MP, JENNIE, LIPA #### [facility] [address] [address] [address] Manuel Sandhu IG % 0.5 % Normal 0.0-0.5 [facility] Comment on above: Performed By: #### C MP, JENNIE, LIPA #### [facility] [address] [place] [address] Dr. Manuel Sandhu LYMPH # 3.6 103/ul Normal 1.2-3.8 [facility] Comment on above: Performed By: #### C MP, JENNIE, LIPA #### [facility] [address] [address] [address] Manuel Sandhu Lymphocytes/100 WBC (Bld) 23.5 % Normal 20.5-60.0 [facility] Comment on above: Performed By: #### C MP, JENNIE, LIPA #### [facility] [address] [address] [address] Manuel Sandhu MANUAL DIFF REQ NO Normal [facility] Comment on above: Performed By: #### C MP, JENNIE, LIPA #### [facility] [address] [address] [address] Manuel Sandhu MCH (RBC) [Entitic mass] 32.1 pg Normal 26.7-34.0 [facility] Comment on above: Performed By: #### C MP, JENNIE, LIPA #### [facility] [address] [place] [address] Dr. Manuel Sandhu MCHC (RBC) [Mass/Vol] 33.8 g/dL Normal 29.9-35.2 [facility] Comment on above: Performed By: #### C JENNIE PATRICK, LIPA #### [facility] [address] [place] [address] Dr. Manuel Sandhu MCV (RBC) [Entitic vol] 95.2 fL Normal 81.0-99.0 [facility] Comment on above: Performed By: #### C JENNIE PATRICK, LIPA #### [facility] [address] [place] [address] Dr. Manuel Sandhu MONO # 0.9 103/ul Critically high 0.3-0.8 [facility] Comment on above: Performed By: #### C JENNIE PATRICK, LIPA #### [facility] [address] [place] [address] Dr. Manuel Sandhu Monocytes/100 WBC (Bld) 5.8 % Normal 1.7-12.0 [facility] Comment on above: Performed By: #### C CELINA JENNIE, LIPA #### [facility] [address] [place] [address] Dr. Manuel Sandhu NEUT # 10.3 103/ul Critically high 1.4-6.5 [facility] Comment on above: Performed By: #### C JENNIE PATRICK, LIPA #### [facility] [address] [place] [address] Dr. Manuel Sandhu Neutrophils/100 WBC (Bld) 67.3 % Normal 43.0-75.0 [facility] Comment on above: Performed By: #### C CELINA JENNIE, LIPA #### [facility] [address] [place] [address] Dr. Manuel Sandhu Platelet mean volume (Bld) [Entitic vol] 11.4 fL Normal 9.5-13.5 [facility] Comment on above: Performed By: #### C MP JENNIE, LIPA #### [facility] [address] [place] [address] Dr. Manuel Sandhu PLT 364 103/ul Normal 150-450 [facility] Comment on above: Performed By: #### C CELINA JENNIE, LIPA #### [facility] [address] [address] [address] Manuel Sandhu RBC 4.14 106/ul Critically low 4.20-5.40 [facility] Comment on above: Performed By: #### C JENNIE PATRICK LIPA #### [facility] [address] [place], [place] [address] Dr. aMnuel Sandhu WBC 15.3 103/ul Critically high 4.0-11.0 [facility] Comment on above: Performed By: #### C JENNIE PATRICK LIPA #### [facility] [address] [address] STROKE HEAD WOon [...] YOLI MCKEON Date: 2022-08-11 15:21 Normal [facility] ER URINE PROFILEon 2 Bilirubin Ql (U) Negative Normal NEGATIVE [facility] Comment on above: Performed By: #### U MICRO, ERUR #### [facility] [address] [address] [address] Manuel Sandhu Clarity (U) CLEAR Normal CLEAR [facility] Comment on above: Performed By: #### U MICRO, ERUR #### [facility] [address] [address] [address] Manuel Sandhu Color (U) LT. YELLOW Normal YELLOW [facility] Comment on above: Performed By: #### U MICRO, ERUR #### [facility] [address] [address] [address] Manuel MCDONALDAHD A micrscopic examination will be performed if indicated. Normal [facility] Comment on above: Performed By: #### U MICRO, ERUR #### [facility] [address] [address] [address] Manuel Sandhu Glucose Ql (U) Negative Normal NEGATIVE [facility] Comment on above: Performed By: #### U MICRO, ERUR #### [facility] [address] [address] [address] Manuel Sandhu Hemoglobin Ql (U) Negative Normal NEGATIVE [facility] Comment on above: Performed By: #### U MICRO, ERUR #### [facility] [address] [address] [address] Manuel Sandhu Ketones Ql (U) Negative Normal NEGATIVE [facility] Comment on above: Performed By: #### U MICRO, ERUR #### [facility] [address] [address] [address] Manuel Sandhu LEUKOCYTES Negative Normal NEGATIVE [facility] Comment on above: Performed By: #### U MICRO, ERUR #### [facility] [address] [address] [address] Manuel Sandhu Nitrite Ql (U) Negative Normal NEGATIVE [facility] Comment on above: Performed By: #### U MICRO, ERUR #### [facility] [address] [address] [address] Manuel Sandhu pH (U) 7.0 [pH] Normal 5-9 [facility] Comment on above: Performed By: #### U MICRO, ERUR #### [facility] [address] [address] [address] Manuel Sandhu SPEC GRAVITY <=1.005 Abnormal 1.005-<=1.02 5 [facility] Comment on above: Performed By: #### U MICRO, ERUR #### [facility] [address] [place] [address] Dr. Manuel Sandhu UA PROTEIN Negative Normal NEGATIVE/ TRACE [facility] Comment on above: Performed By: #### U MICRO, ERUR #### [facility] [address] [place] [address] Dr. Manuel Sandhu UR MICRO IND NOT INDICATED Normal [facility] Comment on above: Performed By: #### U MICRO, ERUR #### [facility] [address] [place] [address] Dr. Manuel Sandhu Urobilinogen Qn (U) 0.2 {Lucila'U}/dL Normal 0.2 - 1. 0 [facility] Comment on above: Performed By: #### U MICRO, ERUR #### [facility] [address] [place] [address] Dr. Manuel Sandhu LACTATE/LACTIC ACIDon 2021 Lactate [Moles/Vol] 1.5 mmol/L Normal 0.4-1.9 [facility] Comment on above: Performed By: #### I NFLUAB #### [facility] [address] [place] [address] Dr. Manuel Sandhu LIPASEon 08-11-2022 Lipase [Catalytic activity/Vol] 84.0 U/L Normal 73.0-393.0 [facility] Comment on above: Performed By: #### C JENNIE PATRICK, LIPA #### [facility] [address] [place] [address] Dr. Manuel Sandhu URon 08-11-2022 , QUAL Negative Normal NEGATIVE [facility] Comment on above: Performed By: #### U MICRO, ERUR #### [facility] [address] [place] [address] Dr. Manuel Sandhu PROF 14(COMP METB)on 022 Albumin [Mass/Vol] 4.3 g/dL Normal 3.4-5.0 [facility] Comment on above: Performed By: #### C JENNIE PATRICK, LIPA #### [facility] [address] [address] [address] Manuel Sandhu Albumin/Globulin [Mass ratio] 1.1 {ratio} Normal [facility] Comment on above: Performed By: #### C MP, JENNIE, LIPA #### [facility] [address] [address] [address] Manuel Sandhu ALP [Catalytic activity/Vol] 87 U/L Normal 46-116 [facility] Comment on above: Performed By: #### C MP, JENNIE, LIPA #### [facility] [address] [address] [address] Manuel Sandhu ALT [Catalytic activity/Vol] 32 U/L Normal 14-59 [facility] Comment on above: Performed By: #### C MP, JENNIE, LIPA #### [facility] [address] [place] [address] Dr. Manuel Sandhu Anion gap [Moles/Vol] 12.7 mmol/L Normal [facility] Comment on above: Performed By: #### C MP, JENNIE, LIPA #### [facility] [address] [place] [address] Dr. Manuel Sandhu AST [Catalytic activity/Vol] 24 U/L Normal 15-37 [facility] Comment on above: Performed By: #### C MP, JENNIE, LIPA #### [facility] [address] [place] [address] Dr. Manuel Sandhu Bilirubin [Mass/Vol] 0.3 mg/dL Normal 0.2-1.0 [facility] Comment on above: Performed By: #### C MP, JENNIE, LIPA #### [facility] [address] [place] [address] Dr. Manuel Sandhu Calcium [Mass/Vol] 9.4 mg/dL Normal 8.5-10.1 [facility] Comment on above: Performed By: #### C MP, JENNIE, LIPA #### [facility] [address] [address] [address] Manuel Sandhu Chloride [Moles/Vol] 100 mmol/L Normal 98-107 [facility] Comment on above: Performed By: #### C MP, JENNIE, LIPA #### [facility] [address] [address] [address] Manuel Sandhu CO2 [Moles/Vol] 27.7 mmol/L Normal 21.0-32.0 [facility] Comment on above: Performed By: #### C MP, JENNIE, LIPA #### [facility] [address] [address] [address] Manuel Sandhu Creatinine [Mass/Vol] 0.71 mg/dL Normal 0.55-1.02 [facility] Comment on above: Performed By: #### C MP, JENNIE, LIPA #### [facility] [address] [place] [address] Dr. Manuel Sandhu EGFR-AF CENTRAL AFRICAN >60 Normal >=60 [facility] Comment on above: Performed By: #### C MP, JENNIE, LIPA #### [facility] [address] [place] [address] Dr. Manuel Sandhu EGFR-NON AF CENTRAL AFRICAN >60 Normal >=60 [facility] Comment on above: Performed By: #### C MP, JENNIE, LIPA #### [facility] [address] [place] [address] Dr. Manuel Sandhu Globulin (S) [Mass/Vol] 3.9 g/dL Normal [facility] Comment on above: Performed By: #### C MP, JENNIE, LIPA #### [facility] [address] [address] [address] Manuel Sandhu Glucose [Mass/Vol] 109 mg/dL Critically high 74-106 [facility] Comment on above: Performed By: #### C MP, JENNIE, LIPA #### [facility] [address] [address] [address] Manuel Sandhu Potassium [Moles/Vol] 3.4 mmol/L Critically low 3.5-5.1 [facility] Comment on above: Performed By: #### C MP, JENNIE, LIPA #### [facility] [address] [place] [address] Dr. Manuel Sandhu Protein [Mass/Vol] 8.2 g/dL Normal 6.4-8.2 [facility] Comment on above: Performed By: #### C JENNIE PATRICK LIPA #### [facility] [address] [place] [address] Dr. Manuel Sandhu Sodium [Moles/Vol] 137 mmol/L Normal 136-145 [facility] Comment on above: Performed By: #### C JENNIE PATRICK LIPA #### [facility] [address] [place] [address] Dr. Manuel Sandhu Urea nitrogen [Mass/Vol] 10.0 mg/dL Normal 7.0-18.0 [facility] Comment on above: Performed By: #### C JENNIE PATRICK LIPA #### [facility] [address] [place] [address] Dr. Manuel Sandhu Urea nitrogen/Creatinine [Mass ratio] 14.1 mg/mg Normal [facility] Comment on above: Performed By: #### C JENNIE PATRICK LIPA #### [facility] [address] [place] [address] Dr. Manuel Sandhu PROTIMEon 08-11-2022 INR Coag (PPP) [Relative time] 0.96 {INR} Normal [facility] Comment on above: Performed By: #### I NFLUAB #### [facility] [address] [place] [address] Dr. Manuel Sandhu INR GUIDELINES SEE BELOW Normal [facility] Comment on above: Result Comment: CHUY RED INR: 2.0 - 3.0 CONDITIONS NOT LISTED BELOW 2.5 - 3.5 FOR PROSTHETIC HEART VALVE REPLACEMENT 2.5 - 3.5 RECURRENT THROMBOSIS Performed By: #### I NFLUAB #### [facility] [address] [place] [address] Dr. Manuel Sandhu PT Coag (PPP) [Time] 10.4 s Normal 9.0-11.6 [facility] Comment on above: Performed By: #### I NFLUAB #### [facility] [address] [place] [address] Dr. Manuel Sandhu PTTon 11-28-2022 aPTT Coag (Bld) [Time] 25.3 s Normal 22.3-36.2 [facility] Comment on above: Performed By: #### I NFLUAB #### [facility] [address] [place] [address] Dr. Manuel Sandhu TROPONIN, HIGH SENSITIVITYon 08-11-2022 HSTROP 4.5 pg/mL Normal 4.0-51.3 [facility] Comment on above: Result Comment: CUT- OFF POINTS HAVE BEEN ESTABLISHED BASED ON THE FOURTH UNIVERSAL DEFINITIONS OF MYOCARDIAL INFARCTION. THE UPPER REFERENCE LIMIT (URL) OF TROPONIN, DEFINED THE 99TH PERCENTILE OF cTnI DISTRIBUTION IN A REFERENCE POPULATION, HAS BEEN CONFIRMED THE DECISION THRESHOLD FOR IA DIAGNOSIS. Performed By: #### C JENNIE PATRICK LIPA #### [facility] [address] [place] [address] Dr. Manuel Sandhu TSHon 08-11-2022 TSH 1.778 uIU/mL Normal 0.358-3.740 [facility] Comment on above: Performed By: #### C JENNIE PATRICK LIPA #### [facility] [address] [place] [address] Dr. Manuel Sandhu CHEMISTRYOrdered By: SYSTEM SYSTEM [...] rate/Area] mL/min/1.73 m2 Normal >=59mL/min/1 .73 m2 [facility] Chem S Glucose [Mass/Vol] 84 mg/dL Normal 55 - 199 mg/dL [facility] Remisol Potassium [Moles/Vol] 4.2 mmol/L Normal 3.5 - 5.3 mmol/L [facility] Remisol Sodium [Moles/Vol] 137 mmol/L Normal 135 - 145 mmol/L [facility] Remisol Urea nitrogen [Mass/Vol] 13 mg/dL Normal 5 - 21 mg/dL [facility] Remisol Urea nitrogen/Creatinine [Mass ratio] 22 mg/mg High 10 - 20 [facility] Remisol CHEMISTRYOrdered By: Lab ROP User on 08-08-2022 Glucose [Mass/Vol] 98 mg/dL Normal 55 - 99 mg/dL [facility] POC Subsection POC Device SN [id number] Invalid Interpretation Code [facility] POC Subsection POC User ID [id number] Invalid Interpretation Code [facility] POC Subsection POC Username MOLLY RALPH Invalid Interpretation Code [facility] POC Subsection HEMATOLOGYOrdered By: SYSTEM SYSTEM on 08-08-2022 Basophils/100 WBC (Bld) 0.5 % Normal 0.0 - 2.0 % [facility] HemeAutoSS Basophils/Leukocytes Auto (Bld) [Pure # fraction] 0.1 E9/L Normal 0.0 - 0.2 E9/L [facility] Eosinophils/100 WBC (Bld) 2.8 % Normal 0.0 - 8.0 % [facility]eAutoSS Eosinophils/Leukocytes Auto (Bld) [Pure # fraction] 0.3 E9/L Normal 0.0 - 0.5 E9/L [facility] Lymphocytes/100 WBC (Bld) 15.7 % Normal 14.0 - 50.0 % [facility]eAutoSS Lymphocytes/Leukocytes Auto (Bld) [Pure # fraction] 1.7 E9/L Normal 1.0 - 4.0 E9/L [facility] HemeAutoSS Monocytes/100 WBC (Bld) 6.2 % Normal 4.0 - 14.0 % [facility] HemeAutoSS Monocytes/Leukocytes Auto (Bld) [Pure # fraction] 0.7 E9/L Normal 0.2 - 1.0 E9/L [facility] HemeAutoSS Neutrophils/100 WBC (Bld) 74.8 % Normal 36.0 - 75.0 % [facility] HemeAutoSS Neutrophils/Leukocytes Auto (Bld) [Pure # fraction] [...] Detected (08/08/22 9:59 AM) Normal Not Detected [facility] Man Sero SEROLOGYOrdered By: Kimberli heart on 08-08-2022 Beta hCG Ql Negative (08/08/22 9:51 AM) Normal [facility] Man Sero URINALYSISOrdered By: Kimberli Briseno on [...] AM) Normal Negative [facility] UA Auto SS [place].plasma/[place] .RBC (Bld) [Mass ratio] 0-3 /HPF Normal [...] [facility] UA Auto SS Urobilinogen Qn (U) 0.4629180 {Lucila'U}/dL Normal 0.0 - 1.0 EU/dL [facility] UA Auto SS WBC Auto Ql (U) Negative (08/08/22 10:01 AM) Normal Negative [facility] UA Auto SS WBC LM.HPF (Urine sed) [#/Area] 0-5 /HPF Normal 0-5/HPF [facility] UA Auto SS CBC AUTO DIFFon 07-19-2022 BASO # 0.1 103/ul Normal 0.0-0.1 [facility] Comment on above: Performed By: #### I NFLUAB #### [facility] [address] [address] [address] Manuel Sandhu Basophils/100 WBC (Bld) 0.4 % Normal 0.2-2.0 [facility] Comment on above: Performed By: #### I NFLUAB #### [facility] [address] [address] [address] Manuel Sandhu EO # 0.3 103/ul Normal 0.0-0.7 [facility] Comment on above: Performed By: #### I NFLUAB #### [facility] [address] [address] [address] Manuel Sandhu Eosinophils/100 WBC (Bld) 2.4 % Normal 0.9-7.0 [facility] Comment on above: Performed By: #### I NFLUAB #### [facility] [address] [place] [address] Dr. Manuel Sandhu Erythrocyte distribution width (RBC) [Ratio] 13.7 % Normal 11.0-15.0 [facility] Comment on above: Performed By: #### I NFLUAB #### [facility] [address] [address] [address] Manuel Sandhu Hematocrit (Bld) [Volume fraction] 36.5 % Normal 36.0-48.0 [facility] Comment on above: Performed By: #### I NFLUAB #### [facility] [address] [address] [address] Manuel Sandhu Hemoglobin (Bld) [Mass/Vol] 12.3 g/dL Normal 12.0-16.0 [facility] Comment on above: Performed By: #### I NFLUAB #### [facility] [address] [address] [address] Manuel Sandhu IG # 0.04 10e3/ul Critically high 0.00-0.03 [facility] Comment on above: Performed By: #### I NFLUAB #### [facility] [address] [place] [address] Dr. Manuel Sandhu IG % 0.3 % Normal 0.0-0.5 [facility] Comment on above: Performed By: #### I NFLUAB #### [facility] [address] [place] [address] Dr. Manuel Sandhu LYMPH # 2.6 103/ul Normal 1.2-3.8 [facility] Comment on above: Performed By: #### I NFLUAB #### [facility] [address] [place] [address] Dr. Manuel Sandhu Lymphocytes/100 WBC (Bld) 22.3 % Normal 20.5-60.0 [facility] Comment on above: Performed By: #### I NFLUAB #### [facility] [address] [place] [address] Dr. Manuel Sandhu MANUAL DIFF REQ NO Normal [facility] Comment on above: Performed By: #### I NFLUAB #### [facility] [address] [place] [address] Dr. Manuel Sandhu MCH (RBC) [Entitic mass] 32.5 pg Normal 26.7-34.0 [facility] Comment on above: Performed By: #### I NFLUAB #### [facility] [address] [place] [address] Dr. Manuel Sandhu MCHC (RBC) [Mass/Vol] 33.7 g/dL Normal 29.9-35.2 [facility] Comment on above: Performed By: #### I NFLUAB #### [facility] [address] [place] [address] Dr. Manuel Sanhdu MCV (RBC) [Entitic vol] 96.6 fL Normal 81.0-99.0 [facility] Comment on above: Performed By: #### I NFLUAB #### [facility] [address] [place] [address] Dr. Manuel Sandhu MONO # 0.6 103/ul Normal 0.3-0.8 [facility] Comment on above: Performed By: #### I NFLUAB #### [facility] [address] [place] [address] Dr. Manuel Sandhu Monocytes/100 WBC (Bld) 5.2 % Normal 1.7-12.0 [facility] Comment on above: Performed By: #### I NFLUAB #### [facility] [address] [place] [address] Dr. Manuel Sandhu NEUT # 8.2 103/ul Critically high 1.4-6.5 [facility] Comment on above: Performed By: #### I NFLUAB #### [facility] [address] [place] [address] Dr. Manuel Sandhu Neutrophils/100 WBC (Bld) 69.4 % Normal 43.0-75.0 [facility] Comment on above: Performed By: #### I NFLUAB #### [facility] [address] [place] [address] Dr. Manuel Sandhu Platelet mean volume (Bld) [Entitic vol] 11.2 fL Normal 9.5-13.5 [facility] Comment on above: Performed By: #### I NFLUAB #### [facility] [address] [place] [address] Dr. Manuel Sandhu PLT 308 103/ul Normal 150-450 [facility] Comment on above: Performed By: #### I NFLUAB #### [facility] [address] [place] [address] Dr. Manuel Sandhu RBC 3.78 106/ul Critically low 4.20-5.40 [facility] Comment on above: Performed By: #### I NFLUAB #### [facility] [address] [place] [address] Dr. Manuel Sandhu WBC 11.8 103/ul Critically high 4.0-11.0 [facility] Comment on above: Performed By: #### I NFLUAB #### [facility] [address] [place] [address] Dr. Manuel RosalesDIMERon 07-19-2022 D-DIMER 0.29 mg/L FEU Normal <=0.59 [facility] Comment on above: Performed By: #### U MICRO, ERUR #### [facility] [address] [place] [address] Dr. Manuel Sandhu D-DIMER COMMENTS SEE BELOW Normal [facility] Comment on above: Result Comment: Incr [...] Performed By: #### U MICRO, ERUR #### [facility] [address] [place] [address] Dr. Manuel Sandhu LIPASEon 07-19-2022 Lipase [Catalytic activity/Vol] 119.0 U/L Normal 73.0-393.0 [facility] Comment on above: Performed By: #### C JENNIE PATRICK LIPA #### [facility] [address] [place] [address] Dr. Manuel Sandhu PROF 14(COMP METB)on 022 Albumin [Mass/Vol] 3.5 g/dL Normal 3.4-5.0 [facility] Comment on above: Performed By: #### C CELINA JENNIE, LIPA #### [facility] [address] [place] [address] Dr. Manuel Sandhu Albumin/Globulin [Mass ratio] 1.0 {ratio} Normal [facility] Comment on above: Performed By: #### C CELINA JENNIE, LIPA #### [facility] [address] [place] [address] Dr. Manuel Sandhu ALP [Catalytic activity/Vol] 65 U/L Normal 46-116 [facility] Comment on above: Performed By: #### C CELINA JENNIE, LIPA #### [facility] [address] [place], [place] [id number] Dr. Manuel Sandhu ALT [Catalytic activity/Vol] 33 U/L Normal 14-59 [facility] Comment on above: Performed By: #### C JENNIE PATRICK LIPA #### [facility] [address] [place] [address] Dr. Manuel Sandhu Anion gap [Moles/Vol] 10.8 mmol/L Normal [facility] Comment on above: Performed By: #### C JENNIE PATRICK LIPA #### [facility] [address] [place] [address] Dr. Manuel Sandhu AST [Catalytic activity/Vol] 20 U/L Normal 15-37 [facility] Comment on above: Performed By: #### C JENNIE PATRICK LIPA #### [facility] [address] [place] [address] Dr. Manuel Sandhu Bilirubin [Mass/Vol] 0.1 mg/dL Critically low 0.2-1.0 [facility] Comment on above: Performed By: #### C JENNIE PATRICK LIPA #### [facility] [address] [place] [address] Dr. Manuel Sandhu Calcium [Mass/Vol] 8.7 mg/dL Normal 8.5-10.1 [facility] Comment on above: Performed By: #### C JENNIE PATRICK LIPA #### [facility] [address] [place] [address] Dr. Manuel Sandhu Chloride [Moles/Vol] 105 mmol/L Normal 98-107 [facility] Comment on above: Performed By: #### C JENNIE PATRICK, LIPA #### [facility] [address] [place] [address] Dr. Manuel Sandhu CO2 [Moles/Vol] 24.4 mmol/L Normal 21.0-32.0 [facility] Comment on above: Performed By: #### C JENNIE PATRICK, LIPA #### [facility] [address] [place] [address] Dr. Manuel Sandhu Creatinine [Mass/Vol] 0.91 mg/dL Normal 0.55-1.02 [facility] Comment on above: Performed By: #### C MP, JENNIE, LIPA #### [facility] [address] [address] [address] Manuel Sandhu EGFR-AF CENTRAL AFRICAN >60 Normal >=60 [facility] Comment on above: Performed By: #### C MP, JENNIE, LIPA #### [facility] [address] [address] [address] Manuel Sandhu EGFR-NON AF CENTRAL AFRICAN >60 Normal >=60 [facility] Comment on above: Performed By: #### C MP, JENNIE, LIPA #### [facility] [address] [address] [address] Manuel Sandhu Globulin (S) [Mass/Vol] 3.4 g/dL Normal [facility] Comment on above: Performed By: #### C MP, JENNIE, LIPA #### [facility] [address] [address] [address] Manuel Sandhu Glucose [Mass/Vol] 127 mg/dL Critically high 74-106 [facility] Comment on above: Performed By: #### C MP, JENNIE, LIPA #### [facility] [address] [address] [address] Manuel Sandhu Potassium [Moles/Vol] 3.2 mmol/L Critically low 3.5-5.1 [facility] Comment on above: Performed By: #### C MP, JENNIE, LIPA #### [facility] [address] [address] [address] Manuel Sandhu Protein [Mass/Vol] 6.9 g/dL Normal 6.4-8.2 [facility] Comment on above: Performed By: #### C MP, JENNIE, LIPA #### [facility] [address] [address] [address] Manuel Sandhu Sodium [Moles/Vol] 137 mmol/L Normal 136-145 [facility] Comment on above: Performed By: #### C MP, JENNIE, LIPA #### [facility] [address] [address] [address] Manuel Sandhu Urea nitrogen [Mass/Vol] 13.0 mg/dL Normal 7.0-18.0 [facility] Comment on above: Performed By: #### C MP, JENNIE, LIPA #### [facility] [address] [place] [address] Dr. Manuel Sandhu Urea nitrogen/Creatinine [Mass ratio] 14.3 mg/mg Normal [facility] Comment on above: Performed By: #### C MP, JENNIE, LIPA #### [facility] [address] [place] [address] Dr. Manuel Sandhu PROTIMEon 07-19-2022 INR Coag (PPP) [Relative time] 0.97 {INR} Normal [facility] Comment on above: Performed By: #### P TT, PT #### [facility] [address] [place] [address] Dr. Manuel Sandhu INR GUIDELINES SEE BELOW Normal [facility] Comment on above: Result Comment: CHUY RED INR: 2.0 - 3.0 CONDITIONS NOT LISTED BELOW 2.5 - 3.5 FOR PROSTHETIC HEART VALVE REPLACEMENT 2.5 - 3.5 RECURRENT THROMBOSIS Performed By: #### P TT, PT #### [facility] [address] [place] [address] Dr. Manuel Sandhu PT Coag (PPP) [Time] 10.5 s Normal 9.0-11.6 [facility] Comment on above: Performed By: #### P TT, PT #### [facility] [address] [place] [address] Dr. Manuel Sandhu PTTon 07-19-2022 aPTT Coag (Bld) [Time] 26.1 s Normal 22.3-36.2 [facility] Comment on above: Performed By: #### P TT, PT #### [facility] [address] [place] [address] Dr. Manuel Sandhu TROPONIN, HIGH SENSITIVITYon 07-19-2022 HSTROP 5.4 pg/mL Normal 4.0-51.3 [facility] Comment on above: Result Comment: CUT- OFF POINTS HAVE BEEN ESTABLISHED BASED ON THE FOURTH UNIVERSAL DEFINITIONS OF MYOCARDIAL INFARCTION. THE UPPER REFERENCE LIMIT (URL) OF TROPONIN, DEFINED THE 99TH PERCENTILE OF cTnI DISTRIBUTION IN A REFERENCE POPULATION, HAS BEEN CONFIRMED THE DECISION THRESHOLD FOR IA DIAGNOSIS. Performed By: #### U MICRO, ERUR #### [facility] [address] [address] [address] Manuel Sandhu HSTROP 5.1 pg/mL Normal 4.0-51.3 [facility] Comment on above: Result Comment: CUT- OFF POINTS HAVE BEEN ESTABLISHED BASED ON THE FOURTH UNIVERSAL DEFINITIONS OF MYOCARDIAL INFARCTION. THE UPPER REFERENCE LIMIT (URL) OF TROPONIN, DEFINED THE 99TH PERCENTILE OF cTnI DISTRIBUTION IN A REFERENCE POPULATION, HAS BEEN CONFIRMED THE DECISION THRESHOLD FOR IA DIAGNOSIS. Performed By: #### C MP, JENNIE, LIPA #### [facility] [id number] Manuel Sandhu XR CHEST 1 Von [...] LUCIANA ALLEN Date: 2022-07-19 19:28 Normal [facility] Covid-19 PCR (CVDTB)on 05-16 SARS-CoV-2 (COVID-19) RNA JOSÉ MIGUEL+probe Ql (Unsp spec) Not detected Normal NOT DETECTED [facility] Comment on above: Result Comment: [...] for this test is supported by the Gear Generator Set Up Operator of Health and Human Service's declaration that [...] By: #### C JENNIE PATRICK LIPA #### [facility] [address] [address] [address] Manuel Sandhu XR CHEST 2 Von [...] CAROLYNE RALPH Date: 2022-06-12 10:12 Normal [facility] Covid-19 PCR (CVDTB)on 05-15 SARS-CoV-2 (COVID-19) RNA JOSÉ MIGUEL+probe Ql (Unsp spec) Not detected Normal NOT DETECTED [facility] Comment on above: Result Comment: [...] for this test is supported by the Gear Generator Set Up Operator of Health and Human Service's declaration that [...] used). Performed By: #### I NFLUAB #### [facility] [address] [address] [address] Manuel Sandhu CHEMISTRYOrdered By: SYSTEM SYSTEM [...] rate/Area] mL/min/1.73 m2 Normal >=59mL/min/1 .73 m2 [facility] Chem S Glucose [Mass/Vol] 98 mg/dL Normal [...] 13.1 E9/L High 4.0 - 11.0 E9/L [facility] HemeAutoSS Covid-19 PCR (CVDTBH)on 03-15 SARS-CoV-2 (COVID-19) RNA JOSÉ MIGUEL+probe Ql (Unsp spec) Detected Critically abnormal NOT DETECTED [facility] Comment on above: Result Comment: This test is not yet approved or cleared by the [place] FDA. When there are no FDA-approved or cleared tests available, and other criteria are met, FDA can make tests available under an emergency access mechanism called an Emergency Use Authorization (EUA). The EUA for this test is supported by the Jefferson of Health and Human Service's declaration that [...] By: #### C JENNIE PATRICK LIPA #### [facility] [address] [place] [address] Dr. Manuel Sandhu GROUP A STREP CULTUREon 03-15 S. pyogenes Ag Ql (Unsp spec) Culture Observations: NEGATIVE FOR GROUP A STREPTOCOCCUS. Normal [facility] Comment on above: Performed By: #### U MICRO, ERUR #### [facility] [address] [place] [address] Dr. Manuel Sandhu INFLUENZA A AND B AGon 04-07 INFLUENZA A AG Negative Normal NEGATIVE SEE COMMENT [facility] Comment on above: Performed By: #### I NFLUAB #### [facility] [address] [place] [address] Dr. Manuel Sandhu INFLUENZA B AG Negative Normal NEGATIVE SEE COMMENT [facility] Comment on above: Performed By: #### I NFLUAB #### [facility] [address] [place] [address] Dr. Manuel Sandhu INTERNAL CONTROLS Within Normal Limits Normal Wi thin Normal Limits [facility] Comment on above: Performed By: #### I NFLUAB #### [facility] [address] [place] [address] Dr. Manuel Sandhu STREPT SCREENon 04-07-2022 STREP SCREEN A Negative Normal NEGATIVE [facility] Comment on above: Performed By: #### U MICRO, ERUR #### [facility] [address] [address] [address] Manuel Sandhu CHEMISTRYOrdered By: SYSTEM SYSTEM [...] PM) Normal Negative [facility] UA Auto SS [employer].plasma/Ar[employer]smith .RBC (Bld) [Mass ratio] 0-3 /HPF Normal [...] PM) Invalid Interpretation Code 1.005 - 1.030 [facility] UA Auto SS UA Spec Desc Clean Catch (04/03/22 6:51 PM) Normal [facility] UA Auto SS Urobilinogen Qn (U) [id number] {Lucila'U}/dL Normal 0.0 - 1.0 EU/dL [facility] UA Auto SS WBC Auto Ql (U) Negative (04/03/22 6:51 PM) Normal Negative [facility] UA Auto SS WBC LM.HPF (Urine sed) [#/Area] 0-5 /HPF Normal 0-5/HPF [facility] UA Auto SS GROUP A STREP CULTUREon 01-13 S. pyogenes Ag Ql (Unsp spec) Culture Observations: NEGATIVE FOR GROUP A STREPTOCOCCUS. Normal [facility] Comment on above: Performed By: #### I NFLUAB #### [facility] [address] [place] [address] Dr. Manuel Sandhu STREPT SCREENon 02-08-2022 STREP SCREEN A Negative Normal NEGATIVE [facility] Comment on above: Performed By: #### I NFLUAB #### [facility] [address] [place] [address] Dr. Manuel Sandhu CBC AUTO DIFFon 01-30-2022 BASO # 0.1 103/ul Normal 0.0-0.1 [facility] Comment on above: Performed By: #### C BC #### [facility] [address] [place] [address] Dr. Manuel Sandhu Basophils/100 WBC (Bld) 0.4 % Normal 0.2-2.0 [facility] Comment on above: Performed By: #### C BC #### [facility] [address] [place] [address] Dr. Manuel Sandhu EO # 0.4 103/ul Normal 0.0-0.7 [facility] Comment on above: Performed By: #### C BC #### [facility] [address] [place] [address] Dr. Manuel Sandhu Eosinophils/100 WBC (Bld) 3.0 % Normal 0.9-7.0 [facility] Comment on above: Performed By: #### C BC #### [facility] [address] [place] [address] Dr. Manuel Sandhu Erythrocyte distribution width (RBC) [Ratio] 13.3 % Normal 11.0-15.0 [facility] Comment on above: Performed By: #### C BC #### [facility] [address] [place] [address] Dr. Manuel Sandhu Hematocrit (Bld) [Volume fraction] 36.8 % Normal 36.0-48.0 [facility] Comment on above: Performed By: #### C BC #### [facility] [address] [place] [address] Dr. Manuel Sandhu Hemoglobin (Bld) [Mass/Vol] 12.2 g/dL Normal 12.0-16.0 [facility] Comment on above: Performed By: #### C BC #### [facility] [address] [place] [address] Dr. Manuel Sandhu IG # 0.04 10e3/ul Critically high 0.00-0.03 [facility] Comment on above: Performed By: #### C BC #### [facility] [address] [place] [address] Dr. Manuel Sandhu IG % 0.3 % Normal 0.0-0.5 [facility] Comment on above: Performed By: #### C BC #### [facility] [address] [place] [address] Dr. Manuel Sandhu LYMPH # 2.8 103/ul Normal 1.2-3.8 [facility] Comment on above: Performed By: #### C BC #### [facility] [address] [place] [address] Dr. Manuel Sandhu Lymphocytes/100 WBC (Bld) 23.0 % Normal 20.5-60.0 [facility] Comment on above: Performed By: #### C BC #### [facility] [address] [place] [address] Dr. Manuel Sandhu MANUAL DIFF REQ NO Normal [facility] Comment on above: Performed By: #### C BC #### [facility] [address] [place] [address] Dr. Manuel Sandhu MCH (RBC) [Entitic mass] 32.1 pg Normal 26.7-34.0 [facility] Comment on above: Performed By: #### C BC #### [facility] [address] [place] [address] Dr. Manuel Sandhu MCHC (RBC) [Mass/Vol] 33.2 g/dL Normal 29.9-35.2 [facility] Comment on above: Performed By: #### C BC #### [facility] [address] [place] [address] Dr. Manuel Sandhu MCV (RBC) [Entitic vol] 96.8 fL Normal 81.0-99.0 [facility] Comment on above: Performed By: #### C BC #### [facility] [address] [place] [address] Dr. Manuel Sandhu MONO # 0.7 103/ul Normal 0.3-0.8 [facility] Comment on above: Performed By: #### C BC #### [facility] [address] [place] [address] Dr. Manuel Sandhu Monocytes/100 WBC (Bld) 5.6 % Normal 1.7-12.0 [facility] Comment on above: Performed By: #### C BC #### [facility] [address] [place] [address] Dr. Manuel Sandhu NEUT # 8.2 103/ul Critically high 1.4-6.5 [facility] Comment on above: Performed By: #### C BC #### [facility] [address] [place] [address] Dr. Manuel Sandhu Neutrophils/100 WBC (Bld) 67.7 % Normal 43.0-75.0 [facility] Comment on above: Performed By: #### C BC #### [facility] [address] [place] [address] Dr. Manuel Sandhu Platelet mean volume (Bld) [Entitic vol] 11.2 fL Normal 9.5-13.5 [facility] Comment on above: Performed By: #### C BC #### [facility] [address] [address] [address] Manuel Sandhu PLT 312 103/ul Normal 150-450 [facility] Comment on above: Performed By: #### C BC #### [facility] [id number] Manuel Sandhu RBC 3.80 106/ul Critically low 4.20-5.40 [facility] Comment on above: Performed By: #### C BC #### [facility] [address] [id number] [address] Manuel Sandhu WBC 12.1 103/ul Critically high 4.0-11.0 [facility] Comment on above: Performed By: #### C BC #### [facility] [address] [place] [address] Dr. Manuel Sandhu Covid-19 PCR (CVDTB)on 01-12 SARS-CoV-2 (COVID-19) RNA JOSÉ MIGUEL+probe Ql (Unsp spec) Not detected Normal NOT DETECTED [facility] Comment on above: Result Comment: This test is not yet approved or cleared by the [place] FDA. When there are no FDA-approved or cleared tests available, and other criteria are met, FDA can make tests available under an emergency access mechanism called an Emergency Use Authorization (EUA). The EUA for this test is supported by the Jefferson of Health and Human Service's (HHS's) declaration [...] SARS-CoV-2. Performed By: #### C VDTBH #### [facility] [address] [place] [address] Dr. Manuel Sandhu DRUG SCREEN RAPID (URINE)on 01-30-2022 AMP Negative Normal NEGATIVE [facility] Comment on above: Performed By: #### U MICRO, ERUR #### [facility] [address] [place] [address] Dr. Manuel Sandhu BAR Negative Normal NEGATIVE [facility] Comment on above: Performed By: #### U MICRO, ERUR #### [facility] [address] [place] [address] Dr. Manuel Sandhu BUP Negative Normal NEGATIVE [facility] Comment on above: Performed By: #### U MICRO, ERUR #### [facility] [address] [place] [address] Dr. Manuel Sandhu BZO Negative Normal NEGATIVE [facility] Comment on above: Performed By: #### U MICRO, ERUR #### [facility] [address] [place] [address] Dr. Manuel Sandhu WISAM Negative Normal NEGATIVE [facility] Comment on above: Performed By: #### U MICRO, ERUR #### [facility] [address] [place] [address] Dr. Manuel Sandhu CUT-OFFS SEE BELOW Normal [facility] Comment on above: Result Comment: AMP [...] Performed By: #### U MICRO, ERUR #### [facility] [address] [place] [address] Dr. Manuel Sandhu DRUG CUT HEADER DRUG CLASS TEST SYST EM CUT-OFF CONCENTRATIONS ARE FOLLOWS: Normal [facility] Comment on above: Performed By: #### U MICRO, ERUR #### [facility] [address] [address] [address] Manuel Sandhu mAMP Negative Normal NEGATIVE [facility] Comment on above: Performed By: #### U MICRO, ERUR #### [facility] [address] [address] [address] Manuel Sandhu MTD Negative Normal NEGATIVE [facility] Comment on above: Performed By: #### U MICRO, ERUR #### [facility] [address] [address] [address] Manuel Sandhu OPI Negative Normal NEGATIVE [facility] Comment on above: Performed By: #### U MICRO, ERUR #### [facility] [address] [place] [address] Dr. Manuel Sandhu OXY Negative Normal NEGATIVE [facility] Comment on above: Performed By: #### U MICRO, ERUR #### [facility] [address] [place] [address] Dr. Manuel Sandhu PCP Negative Normal NEGATIVE [facility] Comment on above: Performed By: #### U MICRO, ERUR #### [facility] [address] [address] [address] Manuel Sandhu PPX Negative Normal NEGATIVE [facility] Comment on above: Performed By: #### U MICRO, ERUR #### [facility] [address] [place] [address] Dr. Manuel Sandhu TCA Negative Normal NEGATIVE [facility] Comment on above: Performed By: #### U MICRO, ERUR #### [facility] [address] [address] [address] Manuel Sandhu THC Negative Normal NEGATIVE [facility] Comment on above: Performed By: #### U MICRO, ERUR #### [facility] [address] [address] [address] Manuel Sandhu ER URINE PROFILEon 2 Bilirubin Ql (U) Negative Normal NEGATIVE [facility] Comment on above: Performed By: #### U MICRO, ERUR #### [facility] [address] [place] [address] Dr. Manuel Sandhu Clarity (U) CLEAR Normal CLEAR [facility] Comment on above: Performed By: #### U MICRO, ERUR #### [facility] [address] [address] [address] Manuel Sandhu Color (U) LT. YELLOW Normal YELLOW [facility] Comment on above: Performed By: #### U MICRO, ERUR #### [facility] [address] [address] [address] Manuel DE DIOSD A micrscopic examination will be performed if indicated. Normal [facility] Comment on above: Performed By: #### U MICRO, ERUR #### [facility] [address] [address] [address] Manuel Sandhu Glucose Ql (U) Negative Normal NEGATIVE [facility] Comment on above: Performed By: #### U MICRO, ERUR #### [facility] [address] [place] [address] Dr. Manuel Sandhu Hemoglobin Ql (U) Negative Normal NEGATIVE [facility] Comment on above: Performed By: #### U MICRO, ERUR #### [facility] [address] [address] [address] Manuel Sandhu Ketones Ql (U) Negative Normal NEGATIVE [facility] Comment on above: Performed By: #### U MICRO, ERUR #### [facility] [address] [address] [address] Manuel Sandhu LEUKOCYTES Negative Normal NEGATIVE [facility] Comment on above: Performed By: #### U MICRO, ERUR #### [facility] [address] [address] [address] Manuel Sandhu Nitrite Ql (U) Negative Normal NEGATIVE [facility] Comment on above: Performed By: #### U MICRO, ERUR #### [facility] [address] [address] [address] Manuel Sandhu pH (U) 5.5 [pH] Normal 5-9 [facility] Comment on above: Performed By: #### U MICRO, ERUR #### [facility] [address] [address] [address] Manuel Sandhu SPEC GRAVITY <=1.005 Abnormal 1.005-<=1.02 5 [facility] Comment on above: Performed By: #### U MICRO, ERUR #### [facility] [address] [place] [address] Dr. Manuel Sandhu UA PROTEIN Negative Normal NEGATIVE/ TRACE [facility] Comment on above: Performed By: #### U MICRO, ERUR #### [facility] [address] [place] [address] Dr. Manuel Sandhu UR MICRO IND NOT INDICATED Normal [facility] Comment on above: Performed By: #### U MICRO, ERUR #### [facility] [address] [place] [address] Dr. Manuel Sandhu Urobilinogen Qn (U) 0.2 {Lucila'U}/dL Normal 0.2 - 1. 0 [facility] Comment on above: Performed By: #### U MICRO, ERUR #### [facility] [address] [place] [address] Dr. Manuel Sandhu ETHANOL (BLD ALC)on 01-31-20 22 ALC NOTE NOTE: 80 mg/dl is th e legal limit for a blood alcohol level Normal [facility] Comment on above: Performed By: #### I NFLUAB #### [facility] [address] [place] [address] Dr. Manuel Sandhu Ethanol [Mass/Vol] 47 mg/dL Normal [facility] Comment on above: Performed By: #### I NFLUAB #### [facility] [address] [place] [address] Dr. Manuel Sandhu PREG HCG QUALon 01-30-2022 , QUAL Negative Normal NEGATIVE [facility] Comment on above: Performed By: #### U MICRO, ERUR #### [facility] [address] [place] [address] Dr. Manuel Sandhu PROF 14(COMP METB)on 022 Albumin [Mass/Vol] 3.8 g/dL Normal 3.4-5.0 [facility] Comment on above: Performed By: #### I NFLUAB #### [facility] [address] [place] [address] Dr. Manuel Sandhu Albumin/Globulin [Mass ratio] 1.1 {ratio} Normal [facility] Comment on above: Performed By: #### I NFLUAB #### [facility] [address] [place] [address] Dr. Manuel Sandhu ALP [Catalytic activity/Vol] 88 U/L Normal 46-116 [facility] Comment on above: Performed By: #### I NFLUAB #### [facility] [address] [place] [address] Dr. Manuel Sandhu ALT [Catalytic activity/Vol] 30 U/L Normal 14-59 [facility] Comment on above: Performed By: #### I NFLUAB #### [facility] [address] [place] [address] Dr. Manuel Sandhu Anion gap [Moles/Vol] 17.3 mmol/L Normal [facility] Comment on above: Performed By: #### I NFLUAB #### [facility] [address] [place] [address] Dr. Manuel Sandhu AST [Catalytic activity/Vol] 17 U/L Normal 15-37 [facility] Comment on above: Performed By: #### I NFLUAB #### [facility] [address] [place] [address] Dr. Manuel Sandhu Bilirubin [Mass/Vol] 0.2 mg/dL Normal 0.2-1.0 [facility] Comment on above: Performed By: #### I NFLUAB #### [facility] [address] [place] [address] Dr. Manuel Sandhu Calcium [Mass/Vol] 8.9 mg/dL Normal 8.5-10.1 [facility] Comment on above: Performed By: #### I NFLUAB #### [facility] [address] [place] [address] Dr. Manuel Sandhu Chloride [Moles/Vol] 109 mmol/L Critically high 98-107 [facility] Comment on above: Performed By: #### I NFLUAB #### [facility] [address] [place] [address] Dr. Manuel Sandhu CO2 [Moles/Vol] 20.2 mmol/L Critically low 21.0-32.0 [facility] Comment on above: Performed By: #### I NFLUAB #### [facility] [address] [place] [address] Dr. Manuel Sandhu Creatinine [Mass/Vol] 0.69 mg/dL Normal 0.55-1.02 [facility] Comment on above: Performed By: #### I NFLUAB #### [facility] [address] [place] [address] Dr. Manuel Sandhu EGFR-AF CENTRAL AFRICAN >60 Normal >=60 [facility] Comment on above: Performed By: #### I NFLUAB #### [facility] [address] [place] [address] Dr. Manuel Sandhu EGFR-NON AF CENTRAL AFRICAN >60 Normal >=60 [facility] Comment on above: Performed By: #### I NFLUAB #### [facility] [address] [place] [address] Dr. Manuel Sandhu Globulin (S) [Mass/Vol] 3.6 g/dL Normal [facility] Comment on above: Performed By: #### I NFLUAB #### [facility] [address] [place] [address] Dr. Manuel Sandhu Glucose [Mass/Vol] 79 mg/dL Normal 74-106 [facility] Comment on above: Performed By: #### I NFLUAB #### [facility] [address] [place] [address] Dr. Manuel Sandhu Potassium [Moles/Vol] 3.5 mmol/L Normal 3.5-5.1 [facility] Comment on above: Performed By: #### I NFLUAB #### [facility] [address] [place] [address] Dr. Manuel Sandhu Protein [Mass/Vol] 7.4 g/dL Normal 6.4-8.2 [facility] Comment on above: Performed By: #### I NFLUAB #### [facility] [address] [place] [address] Dr. Manuel Sandhu Sodium [Moles/Vol] 143 mmol/L Normal 136-145 [facility] Comment on above: Performed By: #### I NFLUAB #### [facility] [address] [place] [address] Dr. Manuel Sandhu Urea nitrogen [Mass/Vol] 18.0 mg/dL Normal 7.0-18.0 [facility] Comment on above: Performed By: #### I NFLUAB #### [facility] [address] [place] [address] Dr. Manuel Sandhu Urea nitrogen/Creatinine [Mass ratio] 26.1 mg/mg Normal [facility] Comment on above: Performed By: #### I NFLUAB #### [facility] [address] [place] [address] Dr. Manuel Sandhu AMYLASEon 11-16-2021 Amylase [Catalytic activity/Vol] 60 U/L Normal 31-110 [facility] Comment on above: Performed By: #### C MP JENNIE, LIPA #### [facility] [address] [place] [address] Dr. Manuel Sandhu CBC AUTO DIFFon 11-16-2021 BASO # 0.1 103/ul Normal 0.0-0.1 [facility] Comment on above: Performed By: #### C MP, JENNIE, LIPA #### [facility] [address] [place] [address] Dr. Manuel Sandhu Basophils/100 WBC (Bld) 0.5 % Normal 0.2-2.0 [facility] Comment on above: Performed By: #### C MP, JENNIE, LIPA #### [facility] [address] [place] [address] Dr. Manuel Sandhu EO # 0.3 103/ul Normal 0.0-0.7 [facility] Comment on above: Performed By: #### C MP, JENNIE, LIPA #### [facility] [address] [place] [address] Dr. Manuel Sandhu Eosinophils/100 WBC (Bld) 3.1 % Normal 0.9-7.0 [facility] Comment on above: Performed By: #### C JENNIE PATRICK LIPA #### [facility] [address] [place] [address] Dr. Manuel Sandhu Erythrocyte distribution width (RBC) [Ratio] 13.4 % Normal 11.0-15.0 [facility] Comment on above: Performed By: #### C JENNIE PATRICK LIPA #### [facility] [address] [place] [address] Dr. Manuel Sandhu Hematocrit (Bld) [Volume fraction] 39.0 % Normal 36.0-48.0 [facility] Comment on above: Performed By: #### C JENNIE PATRICK LIPA #### [facility] [address] [place] [address] Dr. Manuel Sandhu Hemoglobin (Bld) [Mass/Vol] 12.8 g/dL Normal 12.0-16.0 [facility] Comment on above: Performed By: #### C JENNIE PATRICK LIPA #### [facility] [address] [place] [address] Dr. Manuel Sandhu IG # 0.03 10e3/ul Normal 0.00-0.03 [facility] Comment on above: Performed By: #### C JENNIE PATRICK LIPA #### [facility] [address] [place] [address] Dr. Manuel Sandhu IG % 0.3 % Normal 0.0-0.5 [facility] Comment on above: Performed By: #### C JENNIE PATRICK LIPA #### [facility] [address] [place] [address] Dr. Manuel Sandhu LYMPH # 2.8 103/ul Normal 1.2-3.8 [facility] Comment on above: Performed By: #### C JENNIE PATRICK LIPA #### [facility] [address] [place] [address] Dr. Manuel Sandhu Lymphocytes/100 WBC (Bld) 29.9 % Normal 20.5-60.0 [facility] Comment on above: Performed By: #### C JENNIE PATRICK LIPA #### [facility] [address] [place] [address] Dr. Manuel Sandhu MANUAL DIFF REQ NO Normal [facility] Comment on above: Performed By: #### C JENNIE PATRICK LIPA #### [facility] [address] [place] [address] Dr. Manuel Sandhu MCH (RBC) [Entitic mass] 32.2 pg Normal 26.7-34.0 [facility] Comment on above: Performed By: #### C JENNIE PATRICK LIPA #### [facility] [address] [place] [address] Dr. Manuel Sandhu MCHC (RBC) [Mass/Vol] 32.8 g/dL Normal 29.9-35.2 [facility] Comment on above: Performed By: #### C JENNIE PATRICK LIPA #### [facility] [address] [place] [address] Dr. Manuel Sandhu MCV (RBC) [Entitic vol] 98.0 fL Normal 81.0-99.0 [facility] Comment on above: Performed By: #### C JENNIE PATRICK LIPA #### [facility] [address] [place] [address] Dr. Manuel Sandhu MONO # 0.7 103/ul Normal 0.3-0.8 [facility] Comment on above: Performed By: #### C JENNIE PATRICK LIPA #### [facility] [address] [place] [address] Dr. Manuel Sandhu Monocytes/100 WBC (Bld) 7.7 % Normal 1.7-12.0 [facility] Comment on above: Performed By: #### C JENNIE PATRICK, LIPA #### [facility] [address] [place] [address] Dr. Manuel Sandhu NEUT # 5.5 103/ul Normal 1.4-6.5 [facility] Comment on above: Performed By: #### C JENNIE PATRICK, LIPA #### [facility] [address] [place] [address] Dr. Manuel Sandhu Neutrophils/100 WBC (Bld) 58.5 % Normal 43.0-75.0 [facility] Comment on above: Performed By: #### C MP, JENNIE, LIPA #### [facility] [address] [place], [place] [address] Dr. Manuel Sandhu Platelet mean volume (Bld) [Entitic vol] 11.7 fL Normal 9.5-13.5 [facility] Comment on above: Performed By: #### C MP, JENNIE, LIPA #### [facility] [address] [place], [place] [address] Dr. Manuel Sandhu PLT 301 103/ul Normal 150-450 [facility] Comment on above: Performed By: #### C MP, JENNIE, LIPA #### [facility] [address] [place], [place] [address] Dr. Manuel Sandhu RBC 3.98 106/ul Critically low 4.20-5.40 [facility] Comment on above: Performed By: #### C MP, JENNIE, LIPA #### [facility] [address] [place] [address] [address] Manuel Sandhu WBC 9.3 103/ul Normal 4.0-11.0 [facility] Comment on above: Performed By: #### C MP, JENNIE, LIPA #### [facility] [id number] Manuel Sandhu [address] ABD/PELVIS WO CONon [...] HARMONY HARRELL Date: 2021-11-16 19:55 Normal [facility] ER URINE PROFILEon 2 Bilirubin Ql (U) Negative Normal NEGATIVE [facility] Comment on above: Performed By: #### C JENNIE PATRICK LIPA #### [facility] [address] [place] [address] Dr. Manuel Sandhu Clarity (U) CLEAR Normal CLEAR [facility] Comment on above: Performed By: #### C JENNIE PATRICK LIPA #### [facility] [address] [address] [address] Manuel Sandhu Color (U) LT. YELLOW Normal YELLOW [facility] Comment on above: Performed By: #### C MP, JENNIE, LIPA #### [facility] [address] [place] [address] Dr. Manuel CUNHA A micrscopic examination will be performed if indicated. Normal [facility] Comment on above: Performed By: #### C MP, JENNIE, LIPA #### [facility] [address] [address] [address] Manuel Sandhu Glucose Ql (U) Negative Normal NEGATIVE [facility] Comment on above: Performed By: #### C MP, JENNIE, LIPA #### [facility] [address] [place] [address] Dr. Manuel Sandhu Hemoglobin Ql (U) Negative Normal NEGATIVE [facility] Comment on above: Performed By: #### C MP, JENNIE, LIPA #### [facility] [address] [place] [address] Dr. Manuel Sandhu Ketones Ql (U) Negative Normal NEGATIVE [facility] Comment on above: Performed By: #### C MP, JENNIE, LIPA #### [facility] [address] [place] [address] Dr. Manuel Sandhu LEUKOCYTES Negative Normal NEGATIVE [facility] Comment on above: Performed By: #### C MP, JENNIE, LIPA #### [facility] [address] [place] [address] Dr. Manuel Sandhu Nitrite Ql (U) Negative Normal NEGATIVE [facility] Comment on above: Performed By: #### C MP, JENNIE, LIPA #### [facility] [address] [place] [address] Dr. Manuel Sandhu pH (U) 7.0 [pH] Normal 5-9 [facility] Comment on above: Performed By: #### C MP, JENNIE, LIPA #### [facility] [address] [place] [address] Dr. Manuel Sandhu SPEC GRAVITY <=1.005 Abnormal 1.005-<=1.02 5 [facility] Comment on above: Performed By: #### C MP, JENNIE, LIPA #### [facility] [address] [place] [address] Dr. Manuel Sandhu UA PROTEIN Negative Normal NEGATIVE/ TRACE [facility] Comment on above: Performed By: #### C MP, JENNIE, LIPA #### [facility] [address] [place] [address] Dr. Manuel Sandhu UR MICRO IND NOT INDICATED Normal [facility] Comment on above: Performed By: #### C MP, JENNIE, LIPA #### [facility] [address] [place] [address] Dr. Manuel Sandhu Urobilinogen Qn (U) 0.2 {Lucila'U}/dL Normal 0.2 - 1. 0 [facility] Comment on above: Performed By: #### C MP, JENNIE, LIPA #### [facility] [address] [place] [address] Dr. Manuel Sandhu LIPASEon 11-16-2021 Lipase [Catalytic activity/Vol] 78.0 U/L Normal 23.0-300.0 [facility] Comment on above: Performed By: #### C MP, JENNIE, LIPA #### [facility] [address] [place] [address] Dr. Manuel Sandhu URon 11-16-2021 , QUAL Negative Normal NEGATIVE [facility] Comment on above: Performed By: #### C MP, JENNIE, LIPA #### [facility] [address] [place] [address] Dr. Manuel Sandhu PROF 14(COMP METB)on 022 Albumin [Mass/Vol] 4.1 g/dL Normal 3.5-5.0 [facility] Comment on above: Performed By: #### C MP, JENNIE, LIPA #### [facility] [address] [place] [address] Dr. Manuel Sandhu Albumin/Globulin [Mass ratio] 1.1 {ratio} Normal [facility] Comment on above: Performed By: #### C MP, JENNIE, LIPA #### [facility] [address] [place] [address] Dr. Manuel Sandhu ALP [Catalytic activity/Vol] 102 U/L Normal 38-126 [facility] Comment on above: Performed By: #### C JENNIE PATRICK LIPA #### [facility] [address] [address] [address] Manuel Sandhu ALT [Catalytic activity/Vol] 39 U/L Normal 9-52 [facility] Comment on above: Performed By: #### C JENNIE PATRICK, LIPA #### [facility] [address] [address] [address] Manuel Sandhu Anion gap [Moles/Vol] 11.5 mmol/L Normal [facility] Comment on above: Performed By: #### C JENNIE PATRICK LIPA #### [facility] [address] [place] [address] Dr. Manuel Sandhu AST [Catalytic activity/Vol] 28 U/L Normal 14-36 [facility] Comment on above: Performed By: #### C JENNIE PATRICK LIPA #### [facility] [address] [place] [address] Dr. Manuel Sandhu Bilirubin [Mass/Vol] 0.2 mg/dL Normal 0.2-1.3 [facility] Comment on above: Performed By: #### C JENNIE PATRICK, LIPA #### [facility] [address] [place] [address] Dr. Manuel Sandhu Calcium [Mass/Vol] 9.1 mg/dL Normal 8.4-10.2 [facility] Comment on above: Performed By: #### C JENNIE PATRICK, LIPA #### [facility] [address] [place] [address] Dr. Manuel Sandhu Chloride [Moles/Vol] 105 mmol/L Normal 98-107 [facility] Comment on above: Performed By: #### C JENNIE PATRICK, LIPA #### [facility] [address] [place] [address] Dr. Manuel Sandhu CO2 [Moles/Vol] 25.0 mmol/L Normal 22.0-30.0 [facility] Comment on above: Performed By: #### C JENNIE PATRICK LIPA #### [facility] [address] [address] [address] Manuel Sandhu Creatinine [Mass/Vol] 0.77 mg/dL Normal 0.52-1.04 [facility] Comment on above: Performed By: #### C MP, JENNIE, LIPA #### [facility] [address] [address] [address] Manuel Sandhu EGFR-AF CENTRAL AFRICAN >60 Normal >=60 [facility] Comment on above: Performed By: #### C MP, JENNIE, LIPA #### [facility] [address] [address] [address] Manuel Sandhu EGFR-NON AF CENTRAL AFRICAN >60 Normal >=60 [facility] Comment on above: Performed By: #### C MP, JENNIE, LIPA #### [facility] [address] [place] [address] Dr. Manuel Sandhu Globulin (S) [Mass/Vol] 3.8 g/dL Normal [facility] Comment on above: Performed By: #### C MP, JENNIE, LIPA #### [facility] [address] [address] [address] Manuel Sandhu Glucose [Mass/Vol] 85 mg/dL Normal 74-106 [facility] Comment on above: Performed By: #### C MP, JENNIE, LIPA #### [facility] [address] [place] [address] Dr. Manuel Sandhu Potassium [Moles/Vol] 3.5 mmol/L Normal 3.4-5.0 [facility] Comment on above: Performed By: #### C MP, JENNIE, LIPA #### [facility] [address] [address] [address] Manuel Sandhu Protein [Mass/Vol] 7.9 g/dL Normal 6.1-8.2 [facility] Comment on above: Performed By: #### C MP, JENNIE, LIPA #### [facility] [address] [address] [address] Manuel Sandhu Sodium [Moles/Vol] 138 mmol/L Normal 137-145 [facility] Comment on above: Performed By: #### C MP, JENNIE, LIPA #### [facility] [address] [place], [place] [address] Dr. Manuel Sandhu Urea nitrogen [Mass/Vol] 18.0 mg/dL Critically high 7.0-17.0 [facility] Comment on above: Performed By: #### C MP, JENNIE, LIPA #### [facility] [address] [place], [place] [address] Dr. Manuel Sandhu Urea nitrogen/Creatinine [Mass ratio] 23.4 mg/mg Normal [facility] Comment on above: Performed By: #### C MP, JENNIE, LIPA #### [facility] [address] [place], [place] [address] ABDOMEN PELVIS W [...] in the pelvis, which could be physiologic. [employer] Work Phone: EXAMINATION: CT OF T HE [...] grade 1 anterolisthesis at L5-S1 is unchanged. [employer] Work Phone: Dario, pn Incoming Radiant Results From [facility] Ven[facility] - 02/04/2021 4:32 PM EDT EXAMINATION: CT [...] in the pelvis, which could be physiologic. [employer] Phone: [employer] Phone: Basic Metabolic Panel w/ Ref brannon to MGOrdered By: Ruiz Joel on 02-01-2021 Anion gap [Moles/Vol] 15 mmol/L 9 - 17 mmol/L [employer] Phone: Calcium [Mass/Vol] 8.5 mg/dL Low 8.6 - 10. 4 mg/dL [employer] Phone: Chloride [Moles/Vol] 107 mmol/L 98 - 10 7 mmol/L [employer] Phone: CO2 [Moles/Vol] 16 mmol/L Low 20 - 31 mmol/L [employer] Phone: Creatinine [Mass/Vol] 0.36 mg/dL Low 0.50 - 0.90 mg/dL [employer] Phone: GFR >60 >60 mL/min [place] Phone: GFR Non- >60 >60 mL/min [employer] Phone: GFR/1.73 sq M.predicted MDRD (S/P/Bld) [Vol rate/Area] [employer] Phone: Comment on above: Average GFR for 30-3 9 years old: 107 mL/min/1.73sq m Chronic Kidney Disease: <60 mL/min/1.73sq m Kidney failure: <15 mL/min/1.73sq m eGFR calculated using average adult body mass. Additional eGFR calculator available at: http://www.[employer].LawyerPaid/multiple_crcl_2012.htm GFR/1.73 sq M.predicted MDRD (S/P/Bld) [Vol rate/Area] NOT REPORTED [employer] Phone: Glucose [Mass/Vol] 79 mg/dL 70 - 99 mg/dL [employer] Phone: Interpretation and review of laboratory results Abnormal [employer] Phone: Potassium [Moles/Vol] 3.7 mmol/L 3.7 - 5.3 mmol/L [employer] Work Phone: Sodium [Moles/Vol] 138 mmol/L 135 - 144 mmol/L [employer] Work Phone: Urea nitrogen (BldV) [Mass/Vol] 2 mg/dL Low 6 - 20 mg/dL [employer] Work Phone: Urea nitrogen/Creatinine (Bld) [Mass ratio] NOT REPORTED [employer] Work Phone: [employer] Work Phone: CBC WITH AUTO DIFFERENTIALOr dered By: Ruiz Joel on 02-01-2021 Absolute Eos # 0.28 [facility] Work Phone: Absolute Immature Granulocyte 0.06 [employer] Work Phone: Absolute Lymph # 1.62 [employer] [facility] Work Phone: Absolute [place] # 1.46 High [facility] Work Phone: Basophils (Bld) [#/Vol] 0.04 10*3/uL [employer] Work Phone: Basophils/100 WBC (Bld) 0 % 0 - 2 % [employer] Work Phone: Differential Type NOT REPORTED [employer] Work Phone: Eosinophils/100 WBC (Bld) 3 % 1 - 4 % [employer] Work Phone: Hematocrit (Bld) [Volume fraction] 33.7 % Low 36.3 - 47.1 % [employer] Work Phone: Hemoglobin.gastrointes tinal spec 1 Ql (Stl) 10.3 g/dL Low 11.9 - 15.1 g/dL [employer] Work Phone: Immature granulocytes/100 WBC (Bld) 1 % High 0 [employer] Work Phone: Interpretation and review of laboratory results Abnormal [employer] Work Phone: Lymphocytes/100 WBC (Bld) 14 % Low 24 - 43 % [employer] Phone: MCH (RBC) [Entitic mass] 29.9 pg 25.2 - 33.5 pg [employer] Phone: MCHC (RBC) [Mass/Vol] 30.6 g/dL 28.4 - 34.8 g/dL [employer] Phone: MCV (RBC) [Entitic vol] 98.0 fL 82.6 - 102.9 fL [employer] Phone: Monocytes/100 WBC (Bld) 13 % High 3 - 12 % [employer] Phone: NRBC Automated 0.0 0.0 per 100 WBC [employer] Phone: Platelet distribution width (Bld) [Ratio] 13.4 % 11.8 - 14.4 % [employer] Phone: Platelet Estimate NOT REPORTED [employer] Phone: Platelet mean volume (Bld) [Entitic vol] 11.6 fL 8.1 - 13.5 fL [employer] Phone: Platelets (Bld) [#/Vol] 392 10*3/uL [employer] Phone: RBC (Bld) [#/Vol] 3.44 10*6/uL Low 3.95 - 5.1 1 m/uL [employer] Phone: RBC (Bld) [#/Vol] NOT REPORTED [employer] Phone: Segmented neutrophils/100 WBC (Bld) 69 % High 36 - 65 % [employer] Phone: Segs Absolute 7.88 [email or web address] Work Phone: WBC (Bld) [#/Vol] 11.3 10*3/uL [employer] Phone: WBC (Bld) [#/Vol] NOT REPORTED [employer] Phone: [employer] Phone: Basic Metabolic Panel w/ Ref brannon to MGOrdered By: Nicolasa Le on 01-31-2021 Anion gap [Moles/Vol] 17 mmol/L 9 - 17 mmol/L [employer] Phone: Calcium [Mass/Vol] 8.7 mg/dL 8.6 - 10. 4 mg/dL [employer] Phone: Chloride [Moles/Vol] 105 mmol/L 98 - 10 7 mmol/L [employer] Phone: CO2 [Moles/Vol] 15 mmol/L Low 20 - 31 mmol/L [employer] Phone: Creatinine [Mass/Vol] 0.36 mg/dL Low 0.50 - 0.90 mg/dL [employer] Phone: GFR >60 >60 mL/min [place] Phone: GFR Non- >60 >60 mL/min [employer] Phone: GFR/1.73 sq M.predicted MDRD (S/P/Bld) [Vol rate/Area] [employer] Phone: Comment on above: Average GFR for 30-3 9 years old: 107 mL/min/1.73sq m Chronic Kidney Disease: <60 mL/min/1.73sq m Kidney failure: <15 mL/min/1.73sq m eGFR calculated using average adult body mass. Additional eGFR calculator available at: http://www.[employer].LawyerPaid/multiple_crcl_2012.htm GFR/1.73 sq M.predicted MDRD (S/P/Bld) [Vol rate/Area] NOT REPORTED [employer] Phone: Glucose [Mass/Vol] 78 mg/dL 70 - 99 mg/dL [employer] Phone: Interpretation and review of laboratory results Abnormal [employer] Phone: Potassium [Moles/Vol] 3.8 mmol/L 3.7 - 5.3 mmol/L [employer] Phone: Sodium [Moles/Vol] 137 mmol/L 135 - 144 mmol/L [employer] Phone: Urea nitrogen (BldV) [Mass/Vol] 3 mg/dL Low 6 - 20 mg/dL [employer] Work Phone: Urea nitrogen/Creatinine (Bld) [Mass ratio] NOT REPORTED [employer] Phone: [employer] Work Phone: CBC auto differentialOrdered By: Nicolasa Le on 01-31-2021 Absolute Eos # 0.30 [facility] Work Phone: Absolute Immature Granulocyte 0.15 [employer] Work Phone: Absolute Lymph # 2.10 [employer] [facility] Work Phone: Absolute [place] # 2.25 High [employer] [facility] Work Phone: Basophils (Bld) [#/Vol] 0.00 10*3/uL [employer] Work Phone: Basophils/100 WBC (Bld) 0 % 0 - 2 % [employer] Work Phone: Differential Type NOT REPORTED [employer] Phone: Eosinophils/100 WBC (Bld) 2 % 1 - 4 % [employer] Work Phone: Hematocrit (Bld) [Volume fraction] 35.7 % Low 36.3 - 47.1 % [employer] Work Phone: Hemoglobin.gastrointes tinal spec 1 Ql (Stl) 10.8 g/dL Low 11.9 - 15.1 g/dL [employer] Work Phone: Immature granulocytes/100 WBC (Bld) 1 % High 0 [employer] Phone: Interpretation and review of laboratory results Abnormal [employer] Phone: Lymphocytes/100 WBC (Bld) 14 % Low 24 - 43 % [employer] Phone: MCH (RBC) [Entitic mass] 29.9 pg 25.2 - 33.5 pg [employer] Phone: MCHC (RBC) [Mass/Vol] 30.3 g/dL 28.4 - 34.8 g/dL [employer] Phone: MCV (RBC) [Entitic vol] 98.9 fL 82.6 - 102.9 fL [employer] Phone: Monocytes/100 WBC (Bld) 15 % High 3 - 12 % [employer] Phone: Morphology Celso (Bld) [Interp] Normal [employer] Phone: NRBC Automated 0.0 0.0 per 100 WBC [employer] Phone: Platelet distribution width (Bld) [Ratio] 13.5 % 11.8 - 14.4 % [employer] Phone: Platelet Estimate NOT REPORTED [employer] Phone: Platelet mean volume (Bld) [Entitic vol] 11.6 fL 8.1 - 13.5 fL [employer] Phone: Platelets (Bld) [#/Vol] 375 10*3/uL [employer] Phone: RBC (Bld) [#/Vol] 3.61 10*6/uL Low 3.95 - 5.1 1 m/uL [employer] Phone: RBC (Bld) [#/Vol] NOT REPORTED [employer] Phone: Segmented neutrophils/100 WBC (Bld) 68 % High 36 - 65 % [employer] Work Phone: Segs Absolute 10.20 High [employer] Work Phone: WBC (Bld) [#/Vol] 15.0 10*3/uL High [employer] Work Phone: WBC (Bld) [#/Vol] NOT REPORTED [employer] Work Phone: [employer] Work Phone: CBC Auto DifferentialOrdered By: David Nash on 01-30-2021 Absolute Eos # 0.21 [employer] Work Phone: Absolute Immature Granulocyte 0.04 [employer] Work Phone: Absolute Lymph # 1.88 [employer] [facility] Work Phone: Absolute [place] # 1.43 High [employer] Work Phone: Basophils (Bld) [#/Vol] 0.04 10*3/uL [employer] Work Phone: Basophils/100 WBC (Bld) 0 % 0 - 2 % [employer] Work Phone: Differential Type NOT REPORTED [employer] Work Phone: Eosinophils/100 WBC (Bld) 2 % 1 - 4 % [employer] Work Phone: Hematocrit (Bld) [Volume fraction] 36.2 % Low 36.3 - 47.1 % [employer] Work Phone: Hemoglobin.gastrointes tinal spec 1 Ql (Stl) 11.7 g/dL Low 11.9 - 15.1 g/dL [employer] Work Phone: Immature granulocytes/100 WBC (Bld) 0 % 0 [employer] Work Phone: Interpretation and review of laboratory results Abnormal [employer] Work Phone: Lymphocytes/100 WBC (Bld) 15 % Low 24 - 43 % [employer] Phone: MCH (RBC) [Entitic mass] 30.3 pg 25.2 - 33.5 pg [employer] Phone: MCHC (RBC) [Mass/Vol] 32.3 g/dL 28.4 - 34.8 g/dL [employer] Phone: MCV (RBC) [Entitic vol] 93.8 fL 82.6 - 102.9 fL [employer] Phone: Monocytes/100 WBC (Bld) 12 % 3 - 12 % [employer] Work Phone: NRBC Automated 0.0 0.0 per 100 WBC [employer] Phone: Platelet distribution width (Bld) [Ratio] 13.2 % 11.8 - 14.4 % [employer] Phone: Platelet Estimate NOT REPORTED [employer] Phone: Platelet mean volume (Bld) [Entitic vol] 11.6 fL 8.1 - 13.5 fL [employer] Phone: Platelets (Bld) [#/Vol] 414 10*3/uL [employer] Phone: RBC (Bld) [#/Vol] 3.86 10*6/uL Low 3.95 - 5.1 1 m/uL [employer] Work Phone: RBC (Bld) [#/Vol] NOT REPORTED [employer] Phone: Segmented neutrophils/100 WBC (Bld) 71 % High 36 - 65 % [employer] Work Phone: Segs Absolute 8.75 High [email or web address] Work Phone: WBC (Bld) [#/Vol] 12.4 10*3/uL High [employer] Work Phone: WBC (Bld) [#/Vol] NOT REPORTED [employer] Phone: [employer] Phone: CT ABDOMEN PELVIS W IV CONTR [...] anterolisthesis and marked decrease in disc height. [employer] Phone: EXAMINATION: CT OF T HE ABDOMEN [...] height was noted at the L5-S1 disc. [employer] Work Phone: Dario, pn Incoming Radiant Results From [employer] Ven[facility] - 01/30/2021 12:20 PM EDT EXAMINATION: CT [...] anterolisthesis and marked decrease in disc height. [employer] Phone: [employer] Phone: Comprehensive Metabolic Pane l w/ Reflex to MGOrdered By: David Nash on 01-30-2021 Albumin [Mass/Vol] 3.6 g/dL 3.5 - 5.2 g/dL [employer] Phone: Albumin/Globulin [Mass ratio] 1.0 {ratio} [employer] Phone: ALP (Bld) [Catalytic activity/Vol] 107 U/L High 35 - 104 U/L [employer] Phone: ALT [Catalytic activity/Vol] 33 U/L 5 - 33 U/L [employer] Phone: Anion gap [Moles/Vol] 17 mmol/L 9 - 17 mmol/L [employer] Phone: AST [Catalytic activity/Vol] 26 U/L <32 [employer] Phone: Bilirubin [Mass/Vol] 0.25 mg/dL Low 0.3 - 1 .2 mg/dL [employer] Phone: Calcium [Mass/Vol] 9.5 mg/dL 8.6 - 10. 4 mg/dL [employer] Phone: Chloride [Moles/Vol] 104 mmol/L 98 - 10 7 mmol/L [employer] Phone: CO2 [Moles/Vol] 19 mmol/L Low 20 - 31 mmol/L [employer] Phone: Creatinine [Mass/Vol] 0.47 mg/dL Low 0.50 - 0.90 mg/dL [employer] Phone: Free PSA/Total PSA [Mass fraction] 7.3 g/dL 6.4 - 8.3 g/dL [employer] Phone: GFR >60 >60 mL/min [place] Phone: GFR Non- >60 >60 mL/min [employer] Phone: Glucose [Mass/Vol] 79 mg/dL 70 - 99 mg/dL [employer] Phone: Interpretation and review of laboratory results Abnormal [employer] Phone: Potassium [Moles/Vol] 3.8 mmol/L 3.7 - 5.3 mmol/L [employer] Phone: Sodium [Moles/Vol] 140 mmol/L 135 - 144 mmol/L [employer] Phone: Urea nitrogen (BldV) [Mass/Vol] 5 mg/dL Low 6 - 20 mg/dL [employer] Phone: Urea nitrogen/Creatinine (Bld) [Mass ratio] 11 [employer] Phone: HCG Qualitative, SerumOrdere d By: Noreen Mckeon on 01-30-2021 hCG Qual Negative NEGATIVE [employer] Phone: Comment on above: Specimens with hCG l evels near the threshold of the test (25 mIU/mL) may give a negative or indeterminate result. In such cases, another test should be performed with a new specimen in 48-72 hours. If early is suspected clinically in this setting, correlation with quantitative serum b-hCG level is suggested. [employer] has confirmed the use of plasma for this test. This has not been cleared or approved by the U.S. Food and Drug Administration. The FDA has determined that such clearance is not necessary. [employer] Phone: Laboratory - Chemistry and C hemistry - challengeOrdered By: David Nash on 01-30-2021 GFR/1.73 sq M.predicted MDRD (S/P/Bld) [Vol rate/Area] [employer] Phone: Comment on above: Average GFR for 30-3 9 years old: 107 mL/min/1.73sq m Chronic Kidney Disease: <60 mL/min/1.73sq m Kidney failure: <15 mL/min/1.73sq m eGFR calculated using average adult body mass. Additional eGFR calculator available at: http://www.[employer]/multiple_crcl_2012.htm Stage 1: Some kidney damage normal GFR Stage 2: Mild kidney damage GFR 60-89 Stage 3: Moderate kidney damage GFR 30-59 Stage 4: Severe kidney damage GFR 15-29 Stage 5: Severe kidney damage GFR <15 ESRD - chronic treatment by dialysis or transplant Lactic AcidOrdered By: Beatriz Nash on 01-30-2021 Lactate [Moles/Vol] 0.6 mmol/L 0.5 - 2. 2 mmol/L [facility] Work Phone: [employer] Work Phone: LipaseOrdered By: David dalton on 01-30-2021 Lipase [Catalytic activity/Vol] 30 U/L 13 - 60 U/L [facility] Phone: Microscopic UrinalysisOrdere d By: David aNsh on 01-30-2021 - [employer] Work Phone: Amorphous, UA NOT REPORTED None [facility] [facility] Work Phone: Bacteria, UA TRACE Abnormal None [facility] Work Phone: Casts UA NOT REPORTED /LPF [facility] Work Phone: Crystals, UA NOT REPORTED None /HPF [facility] Work Phone: Epithelial Cells UA [address] [facility] Work Phone: Interpretation and review of laboratory results Abnormal [facility] Work Phone: Mucus, UA NOT REPORTED None [facility] Work Phone: Other Observations UA NOT REPORTED NOT REQ. M [facility] [employer] Work Phone: RBC, UA 0 TO 2 [facility] [employer] Work Phone: Renal Epithelial, UA NOT REPORTED 0 /HPF Me [facility] Work Phone: Trichomonas, UA NOT REPORTED None [facility] Work Phone: WBC, UA 2 TO 5 [facility] [employer] Work Phone: Yeast, UA NOT REPORTED None [facility] [employer] Work Phone: [facility] [employer] Work Phone: No Panel InformationOrdered By: David Nash on 01-30-2021 [facility] [employer] Work Phone: Protime-INROrdered By: Linda Mckeon on 01-30-2021 INR Coag (Bld) [Relative time] 1.1 {INR} [facility] [employer] Work Phone: Comment on above: Therapeutic Range: Moderate Anticoagulant Intensity: INR = 2.0-3.0 High Anticoagulant Intensity: INR = 2.5-3.5 PT Coag (PPP) [Time] 11.[address] [facility] [employer] Work Phone: [facility] [employer] Work Phone: Urinalysis, reflex to micros copicOrdered By: David aNsh on 01-30-2021 Bilirubin Urine SMALL Abnormal NEGATIVE [facility] Work Phone: Color, UA YELLOW YELLOW [facility] [employer] Work Phone: Glucose, Ur Negative NEGATIVE [facility] [employer] Work Phone: Interpretation and review of laboratory results Abnormal [facility] [employer] Work Phone: Ketones Ql (U) 4+ Abnormal NEGATIVE [facility] Work Phone: Leukocyte esterase Test strip Ql (U) Negative NEGATIVE [facility] [employer] Work Phone: Nitrite, Urine Negative NEGATIVE [facility] Work Phone: pH, UA 5.5 [facility] Work Phone: Protein, UA Negative NEGATIVE [facility] Phone: Specific Jessie, UA <1.005 Low [place] Phone: Turbidity UA CLEAR CLEAR [facility] Work Phone: Urinalysis Comments NOT REPORTED [facility] [employer] Work Phone: Urine Hgb Negative NEGATIVE [facility] Phone: Urobilinogen, Urine Normal Normal [facility] Work Phone: [employer] Work Phone: Basic Metabolic PanelOrdered By: Gamaliel Vickers on 01-08-2021 Anion gap [Moles/Vol] 11 mmol/L 9 - 17 mmol/L [employer] Phone: Calcium [Mass/Vol] 9.1 mg/dL 8.6 - 10. 4 mg/dL [employer] Phone: Chloride [Moles/Vol] 105 mmol/L 98 - 10 7 mmol/L [employer] Phone: CO2 [Moles/Vol] 23 mmol/L 20 - 31 mmol/L [facility] Phone: Creatinine [Mass/Vol] 0.57 mg/dL 0.50 - 0.90 mg/dL [employer] Phone: GFR >60 >60 mL/min [facility] [employer] Work Phone: GFR Non- >60 >60 mL/min [employer] Phone: GFR/1.73 sq M.predicted MDRD (S/P/Bld) [Vol rate/Area] [employer] Phone: Comment on above: Average GFR for 30-3 9 years old: 107 mL/min/1.73sq m Chronic Kidney Disease: <60 mL/min/1.73sq m Kidney failure: <15 mL/min/1.73sq m eGFR calculated using average adult body mass. Additional eGFR calculator available at: http://www.[employer].LawyerPaid/multiple_crcl_2012.htm GFR/1.73 sq M.predicted MDRD (S/P/Bld) [Vol rate/Area] NOT REPORTED [employer] Phone: Glucose [Mass/Vol] 106 mg/dL High 70 - 99 mg/dL [employer] Phone: Interpretation and review of laboratory results Abnormal [employer] Phone: Potassium [Moles/Vol] 3.7 mmol/L 3.7 - 5.3 mmol/L [employer] Phone: Sodium [Moles/Vol] 139 mmol/L 135 - 144 mmol/L [employer] Phone: Urea nitrogen (BldV) [Mass/Vol] 7 mg/dL 6 - 20 mg/dL [employer] Phone: Urea nitrogen/Creatinine (Bld) [Mass ratio] NOT REPORTED [employer] Phone: CBCOrdered By: Gamaliel castillo on 01-08-2021 Hematocrit (Bld) [Volume fraction] 38.0 % 36.3 - 47.1 % [employer] Phone: Hemoglobin.gastrointes tinal spec 1 Ql (Stl) 12.2 g/dL 11.9 - 15.1 g/dL [employer] Phone: Interpretation and review of laboratory results Abnormal [employer] Phone: MCH (RBC) [Entitic mass] 30.4 pg 25.2 - 33.5 pg [employer] Phone: MCHC (RBC) [Mass/Vol] 32.1 g/dL 28.4 - 34.8 g/dL [employer] Phone: MCV (RBC) [Entitic vol] 94.8 fL 82.6 - 102.9 fL [employer] Phone: NRBC Automated 0.0 0.0 per 100 WBC [employer] Phone: Platelet distribution width (Bld) [Ratio] 13.5 % 11.8 - 14.4 % [employer] Phone: Platelet mean volume (Bld) [Entitic vol] 11.4 fL 8.1 - 13.5 fL [employer] Phone: Platelets (Bld) [#/Vol] 304 10*3/uL [employer] Phone: RBC (Bld) [#/Vol] 4.01 10*6/uL 3.95 - 5.1 1 m/uL [employer] Phone: WBC (Bld) [#/Vol] 18.0 10*3/uL High [employer] Phone: FL ESOPHAGRAMOrdered By: Yadi Vickers on 01-08-2021 No evidence of postoperative leak. [employer] Phone: EXAMINATION: SINGLE CONTRAST ESOPHAGRAM 01/08/2021 HISTORY: [...] KUB/radiographs to assess progression as clinically warranted. [employer] Phone: Dario, Mhpn Incoming Radiant Results From [facility] - 01/08/2021 12:29 PM EDT EXAMINATION: SINGLE [...] warranted. IMPRESSION: No evidence of postoperative leak. [employer] Phone: Basic Metabolic PanelOrdered By: Gamaliel Vickers on 01-07-2021 Anion gap [Moles/Vol] 10 mmol/L 9 - 17 mmol/L [employer] Phone: Calcium [Mass/Vol] 8.8 mg/dL 8.6 - 10. 4 mg/dL [employer] Phone: Chloride [Moles/Vol] 105 mmol/L 98 - 10 7 mmol/L [employer] Phone: CO2 [Moles/Vol] 20 mmol/L 20 - 31 mmol/L [employer] Phone: Creatinine [Mass/Vol] 0.68 mg/dL 0.50 - 0.90 mg/dL [employer] Phone: GFR >60 >60 mL/min [place] Phone: GFR Non- >60 >60 mL/min [employer] Phone: GFR/1.73 sq M.predicted MDRD (S/P/Bld) [Vol rate/Area] [employer] Phone: Comment on above: Average GFR for 30-3 9 years old: 107 mL/min/1.73sq m Chronic Kidney Disease: <60 mL/min/1.73sq m Kidney failure: <15 mL/min/1.73sq m eGFR calculated using average adult body mass. Additional eGFR calculator available at: http://www.[employer].LawyerPaid/multiple_crcl_2012.htm GFR/1.73 sq M.predicted MDRD (S/P/Bld) [Vol rate/Area] NOT REPORTED [employer] Phone: Glucose [Mass/Vol] 215 mg/dL High 70 - 99 mg/dL [employer] Phone: Interpretation and review of laboratory results Abnormal [employer] Phone: Potassium [Moles/Vol] 4.2 mmol/L 3.7 - 5.3 mmol/L [employer] Phone: Sodium [Moles/Vol] 135 mmol/L 135 - 144 mmol/L [employer] Phone: Urea nitrogen (BldV) [Mass/Vol] 14 mg/dL 6 - 20 mg/dL [employer] Phone: Urea nitrogen/Creatinine (Bld) [Mass ratio] NOT REPORTED [employer] Phone: CBC without DiffOrdered By: Gamaliel Vickers on 01-07-2021 Hematocrit (Bld) [Volume fraction] 38.3 % 36.3 - 47.1 % [employer] Phone: Hemoglobin.gastrointes tinal spec 1 Ql (Stl) 12.5 g/dL 11.9 - 15.1 g/dL [employer] Phone: Interpretation and review of laboratory results Abnormal [employer] Phone: MCH (RBC) [Entitic mass] 30.9 pg 25.2 - 33.5 pg [employer] Phone: MCHC (RBC) [Mass/Vol] 32.6 g/dL 28.4 - 34.8 g/dL [employer] Phone: MCV (RBC) [Entitic vol] 94.8 fL 82.6 - 102.9 fL [employer] Phone: NRBC Automated 0.0 0.0 per 100 WBC [employer] Phone: Platelet distribution width (Bld) [Ratio] 13.4 % 11.8 - 14.4 % [employer] Phone: Platelet mean volume (Bld) [Entitic vol] 11.2 fL 8.1 - 13.5 fL [employer] Phone: Platelets (Bld) [#/Vol] 373 10*3/uL [employer] Phone: RBC (Bld) [#/Vol] 4.04 10*6/uL 3.95 - 5.1 1 m/uL [employer] Phone: WBC (Bld) [#/Vol] 24.9 10*3/uL High [employer] Phone: POCT urine pregnancyOrdered By: Gamaliel Vickers on 01-07-2021 Beta HCG ( test) Ql (U) Negative NEGATIVE [employer] Phone: Comment on above: Specimens with hCG l evels near the threshold of the test (25 mIU/mL) may give a negative or indeterminate result. In such cases, another test should be performed with a new specimen in 48-72 hours. If early is suspected clinically in this setting, correlation with quantitative serum b-hCG level is suggested. [id number] 01-04-2021 SARS-CoV-2 (COVID-19) RNA JOSÉ MIGUEL+probe Ql (Unsp spec) Normal [facility] Comment on above: Performed By: #### C OVID #### [facility] [address] [place] [address] Hot Dimpling Machine Operator: Wei Reyna MD [address] [id number] Hot Dim[employer] Machine Operator: Harpal Adair MD SARS-CoV-2 (COVID-19) RNA JOSÉ MIGUEL+probe Ql (Unsp spec) Not detected [facility] Comment on above: Result Comment: The specimen is NEGATIVE for SARS-CoV-2, the novel coronavirus associated with COVID-19. A negative result does not rule out COVID-19. Heide SARS-CoV-2 for use on the Heide Cater to u0/8800 Systems is a real-time RT-PCR test intended [...] this assay. Fact sheet for Healthcare Providers: https://www.fda.gov/media/691647/download Fact sheet for Patients: https://www.fda.gov/media/332398/download METHODOLOGY: RT-PCR Performed By: #### C OVID #### [facility] [address] [place], [place] [id number] [employer] Dimpling Machine Operator: Wei Reyna MD [address] [id number] Hot Dimpling Machine Operator: Harpal Adair MD [id number] 01-03-2021 SARS-CoV-2 (COVID-19) RNA JOSÉ MIGUEL+probe Ql (Unsp spec) .NASOPHARYNGEAL SWAB Normal [facility] Comment on above: Performed By: #### C OVID #### [facility] [address] [place] [id number] Hot Dim[employer] Machine Operator: Wei Reyna MD [address] [id number] Hot Dimpling Machine Operator: Harpal Adair MD Nicotine, BloodOrdered By: Jose Vickers on 12-26-2020 6-KU-Chiketrx <2 ng/mL [facility] Work Phone: Cotinine <2 ng/mL [facility] [employer] Work Phone: Nicotine <2 ng/mL [facility] [employer] Work Phone: Comment on above: (NOTE) Consistent [...] developed and its performance characteristics determined by [facility]. It has not been cleared or approved by the US Food and Drug Administration. This test was performed in a CLIA certified laboratory and is intended for clinical purposes. Performed By: [facility] [address] [place] [id number] Supervisor [place]: Brissa Bonilla MD EKG 12 LeadOrdered By: Enmanuel Vickers on 12-25-2020 Atrial Rate 70 BPM [employer] Phone: P [place] 20 degrees [employer] Phone: P-R Interval 176 ms [employer] Phone: Q-T Interval 414 ms [employer] Phone: QRS Duration 88 ms [employer] Phone: QTc Calculation (Bazett) 447 ms [employer] Phone: R [place] 7 degrees [employer] Phone: T [place] 8 degrees [employer] Phone: Ventricular Rate 70 BPM [employer] Phone: Normal sinus rhythm Normal ECG No previous ECGs available [employer] Phone: Dario, Mhpn Incoming E kg Results From Actions - 12/25/2020 12:47 PM EDT Normal sinus rhythm Normal ECG No previous ECGs available [employer] Phone: APTTOrdered By: Gamaliel horvath on 12-24-2020 aPTT Coag (Bld) [Time] 23.1 s Me [employer]INK Phone: Comment on above: IV Heparin Therapy Range: 48.6-77.8 Basic Metabolic PanelOrdered By: Gamaliel Vickers on 12-24-2020 Anion gap [Moles/Vol] 10 mmol/L 9 - 17 mmol/L [employer] Phone: Calcium [Mass/Vol] 9.4 mg/dL 8.6 - 10. 4 mg/dL [employer] Phone: Chloride [Moles/Vol] 106 mmol/L 98 - 10 7 mmol/L [employer] Phone: CO2 [Moles/Vol] 23 mmol/L 20 - 31 mmol/L [employer] Phone: Creatinine [Mass/Vol] 0.56 mg/dL 0.50 - 0.90 mg/dL [employer] Phone: GFR >60 >60 mL/min [place] Phone: GFR Non- >60 >60 mL/min [employer] Phone: GFR/1.73 sq M.predicted MDRD (S/P/Bld) [Vol rate/Area] [employer] Phone: Comment on above: Average GFR for 30-3 9 years old: 107 mL/min/1.73sq m Chronic Kidney Disease: <60 mL/min/1.73sq m Kidney failure: <15 mL/min/1.73sq m eGFR calculated using average adult body mass. Additional eGFR calculator available at: http://www.[employer].LawyerPaid/multiple_crcl_2012.htm GFR/1.73 sq M.predicted MDRD (S/P/Bld) [Vol rate/Area] NOT REPORTED [employer] Phone: Glucose [Mass/Vol] 86 mg/dL 70 - 99 mg/dL [employer] Phone: Potassium [Moles/Vol] 3.8 mmol/L 3.7 - 5.3 mmol/L [employer] Phone: Sodium [Moles/Vol] 139 mmol/L 135 - 144 mmol/L [employer] Phone: Urea nitrogen (BldV) [Mass/Vol] 12 mg/dL 6 - 20 mg/dL [employer] Phone: Urea nitrogen/Creatinine (Bld) [Mass ratio] NOT REPORTED [employer] Phone: CBCOrdered By: Gamaliel castillo on 12-24-2020 Hematocrit (Bld) [Volume fraction] 41.2 % 36.3 - 47.1 % [employer] Phone: Hemoglobin.gastrointes tinal spec 1 Ql (Stl) 13.4 g/dL 11.9 - 15.1 g/dL [employer] Phone: MCH (RBC) [Entitic mass] 30.5 pg 25.2 - 33.5 pg [employer] Phone: MCHC (RBC) [Mass/Vol] 32.5 g/dL 28.4 - 34.8 g/dL [employer] Phone: MCV (RBC) [Entitic vol] 93.6 fL 82.6 - 102.9 fL [employer] Phone: NRBC Automated 0.0 0.0 per 100 WBC [employer] Phone: Platelet distribution width (Bld) [Ratio] 13.2 % 11.8 - 14.4 % [employer] Phone: Platelet mean volume (Bld) [Entitic vol] 10.7 fL 8.1 - 13.5 fL [employer] Phone: Platelets (Bld) [#/Vol] 391 10*3/uL [employer] Phone: RBC (Bld) [#/Vol] 4.40 10*6/uL 3.95 - 5.1 1 m/uL [employer] Phone: WBC (Bld) [#/Vol] 8.5 10*3/uL [employer] Phone: Protime-INROrdered By: Enmanuel Vickers on 12-24-2020 INR Coag (Bld) [Relative time] 0.9 {INR} [employer] Phone: Comment on above: Therapeutic Range: Moderate Anticoagulant Intensity: INR = 2.0-3.0 High Anticoagulant Intensity: INR = 2.5-3.5 PT Coag (PPP) [Time] 10 s [place] Phone: XR CHEST (2 VW)on 12-24-2020 No acute cardiopulmonary findings [employer] Phone: EXAMINATION: TWO XRA Y VIEWS OF THE CHEST 12/24/2020 11:24 am COMPARISON: None. HISTORY: ORDERING SYSTEM PROVIDED HISTORY: preop gastric bypass [employer] TECHNOLOGIST PROVIDED HISTORY: preop gastric bypass Tian En Y Reason for Exam: no chest complaints FINDINGS: Normal cardiopericardial silhouette There are no significant mediastinal, pleural, parenchymal or osseous findings [employer] Phone: Dario, Mhpn Incoming Radiant Results From [facility] - 12/24/2020 11:30 AM EDT EXAMINATION: TWO XRAY VIEWS OF THE CHEST 12/24/2020 11:24 am COMPARISON: None. HISTORY: ORDERING SYSTEM PROVIDED HISTORY: preop gastric bypass Tian [employer] TECHNOLOGIST PROVIDED HISTORY: preop gastric bypass Tian En Y Reason for Exam: no chest complaints FINDINGS: Normal cardiopericardial silhouette There are no significant mediastinal, pleural, parenchymal or osseous findings IMPRESSION: No acute cardiopulmonary findings [employer] Phone: XR CHEST (2 VW)Ordered By: Jose Vickers on 12-24-2020 No acute cardiopulmonary findings [employer] Phone: EXAMINATION: TWO XRA Y VIEWS OF THE CHEST 12/24/2020 11:24 am COMPARISON: None. HISTORY: ORDERING SYSTEM PROVIDED HISTORY: preop gastric bypass Tian [employer] TECHNOLOGIST PROVIDED HISTORY: preop gastric bypass Tian En Y Reason for Exam: no chest complaints FINDINGS: Normal cardiopericardial silhouette There are no significant mediastinal, pleural, parenchymal or osseous findings [employer] Phone: Dario, pn Incoming Radiant Results From [facility] - 12/24/2020 11:30 AM EDT EXAMINATION: TWO XRAY VIEWS OF THE CHEST 12/24/2020 11:24 am COMPARISON: None. HISTORY: ORDERING SYSTEM PROVIDED HISTORY: preop gastric bypass Tian [employer] TECHNOLOGIST PROVIDED HISTORY: preop gastric bypass Tian En Y Reason for Exam: no chest complaints FINDINGS: Normal cardiopericardial silhouette There are no significant mediastinal, pleural, parenchymal or osseous findings IMPRESSION: No acute cardiopulmonary findings [employer] Phone: FL UGI W AIR CONTRASTon 10-15 Intermittent significant spontaneous GE reflux. Otherwise unremarkable double-contrast upper GI and esophagram. [employer] Phone: EXAMINATION: DOUBLE CONTRAST UPPER GI SERIES [...] The duodenal bulb and sweep are normal. [employer] Phone: Dario, Mhpn Incoming Radiant Results From [facility] - 11/01/2020 5:21 PM EST EXAMINATION: DOUBLE [...] Otherwise unremarkable double-contrast upper GI and esophagram. [employer] Phone: COVID-19on 09-25-2020 SARS-CoV-2 [place], [place] SARS-CoV-[address] [facility] [place] Comment on above: The specimen is NEGATIVE for SARS-CoV-2, the novel coronavirus associated with COVID-19. A negative result does not rule out COVID-19. Heide SARS-CoV-2 for use on the Heide Cater to u0/8800 Systems is a real-time RT-PCR test intended [...] this assay. Fact sheet for Healthcare Providers: https://www.fda.gov/media/339090/download Fact sheet for Patients: https://www.fda.gov/media/021975/download METHODOLOGY: RT-PCR SARS-CoV-2, Rapid [place]die [place], [place] Source .NASOPHARYNGEAL SWAB [place], [place] Vital Signs Date Time Vital Sign Value Performing Clinician Facility 05-30-2025 10:55-0400 Diastolic blood pressure 72 mm[Hg] Jennie Durand DO Work Phone: [facility] 05-30-2025 10:55-0400 Heart rate 66 /min Jennie Hameede DO Work Phone: [facility] 05-30-2025 10:55-0400 Respiratory rate 16 /min Jennie Durand DO Work Phone: [facility] 05-30-2025 10:55-0400 SaO2% (BldA) [Mass fraction] 99 % Jennie Durand DO Work Phone: [facility] 05-30-2025 10:55-0400 Systolic blood pressure 123 mm[Hg] Jennie Durand DO Work Phone: [facility] 05-30-2025 10:18-0400 Body temperature 97.9 [degF] Jennie Durand DO Work Phone: [facility] 05-30-2025 09:53-0400 Inhaled oxygen flow rate 8 L/min Jennie Durand DO Work Phone: [facility] 05-30-2025 07:55-0400 Body height 170.18 cm Jennie Hameede DO Work Phone: [facility] 05-30-2025 07:55-0400 Body weight 89 kg Jennie Durand DO Work Phone: [facility] 04-13-2025 09:41-0400 Body height 170.2 cm Aaliyah Zamudio DO Work Phone: [facility] 04-13-2025 09:41-0400 Body mass index (BMI) [Ratio] 30.54 kg/m2 Aaliyah Ramyazkowitz DO Work Phone: [facility] 04-13-2025 09:41-0400 Body weight 88.45 kg Aaliyah Itzkowitz DO Work Phone: [facility] 04-13-2025 09:41-0400 Diastolic blood pressure 84 mm[Hg] Aaliyah Itzkowitz DO Work Phone: [facility] 04-13-2025 09:41-0400 Systolic blood pressure 118 mm[Hg] Aaliyah Itzkowitz DO Work Phone: [facility] 04-09-2025 10:45-0400 Body mass index (BMI) [Ratio] 32.44 kg/m2 Shazia Didion BIOMEDICAL FIELD SERVICE ENGINEER Work Phone: [facility] 04-09-2025 10:45-0400 Body temperature 96.1 [degF] Shazia Didion BIOMEDICAL FIELD SERVICE ENGINEER Work Phone: [facility] 04-09-2025 10:45-0400 Body weight 91.17 kg Shazia Didion BIOMEDICAL FIELD SERVICE ENGINEER Work Phone: [facility] 04-09-2025 10:45-0400 Diastolic blood pressure 82 mm[Hg] Shazia Didion BIOMEDICAL FIELD SERVICE ENGINEER Work Phone: [facility] 04-09-2025 10:45-0400 Heart rate 95 /min Shazia Didion BIOMEDICAL FIELD SERVICE ENGINEER Work Phone: [facility] 04-09-2025 10:45-0400 SaO2% (BldA) [Mass fraction] 98 % Shazia Didion BIOMEDICAL FIELD SERVICE ENGINEER Work Phone: [facility] 04-09-2025 10:45-0400 Systolic blood pressure 118 mm[Hg] Shazia Didion BIOMEDICAL FIELD SERVICE ENGINEER Work Phone: [facility] 01-27-2025 10:12-0400 Diastolic blood pressure 91 mm[Hg] Orlando Scarlet [employer] [facility] 01-27-2025 10:12-0400 Heart rate 86 /min Orlando [employer]let [employer] [facility] 01-27-2025 10:12-0400 Mean blood pressure 106 mm[Hg] Orlando Kate [facility] 01-27-2025 10:12-0400 Respiratory rate 14 /min Orlando Kate [facility] 01-27-2025 10:12-0400 Systolic blood pressure 136 mm[Hg] Orlando Kate [facility] 01-24-2025 09:59-0400 Heart rate 76 /min Babar Mayers [facility] 01-24-2025 09:59-0400 SaO2% (BldA) [Mass fraction] 100 % Babar Mayers [facility] 01-24-2025 09:59-0400 Diastolic blood pressure 88 mm[Hg] Babar Mayers [facility] 01-24-2025 09:59-0400 Mean blood pressure 104 mm[Hg] Babar Mayers [facility] 01-24-2025 09:59-0400 Systolic blood pressure 137 mm[Hg] Babar Mayers [facility] 01-24-2025 09:54-0400 Diastolic blood pressure 80 mm[Hg] Babar Mayers [facility] 01-24-2025 09:54-0400 Heart rate 79 /min Babar Mayers [facility] 01-24-2025 09:54-0400 Respiratory rate 14 /min Babar Mayers [facility] 01-24-2025 09:54-0400 SaO2% (BldA) [Mass fraction] 100 % Babar Mayers [facility] 01-24-2025 09:54-0400 Systolic blood pressure 141 mm[Hg] Babar Mayers [facility] 01-24-2025 08:35-0400 Heart rate 79 /min Babar Mayers [facility] 01-24-2025 08:35-0400 SaO2% (BldA) [Mass fraction] 99 % Babar Mayers [facility] 01-24-2025 08:34-0400 Body temperature 97.88 [degF] Babar Mayers [facility] 01-24-2025 08:34-0400 Diastolic blood pressure 91 mm[Hg] Babar Mayers [facility] 01-24-2025 08:34-0400 Mean blood pressure 105 mm[Hg] Babar Mayers [facility] 01-24-2025 08:34-0400 Systolic blood pressure 134 mm[Hg] Babar Mayers [facility] 01-24-2025 08:32-0400 Respiratory rate 16 /min Babar Mayers [facility] 01-13-2025 08:15-0400 Diastolic blood pressure 95 mm[Hg] Orlandorayo Kate [facility] 01-13-2025 08:15-0400 Heart rate 79 /min Orlando Kate [facility] 01-13-2025 08:15-0400 Mean blood pressure 108 mm[Hg] Orlando Kate [facility] 01-13-2025 08:15-0400 Respiratory rate 16 /min Orlando Kate [facility] 01-13-2025 08:15-0400 Systolic blood pressure 133 mm[Hg] Orlando Kate [facility] 12-16-2024 10:31-0400 Body height 170.18 cm [facility] 12-16-2024 10:31-0400 Body weight 83.91 kg [facility] 11-28-2024 10:23-0400 Heart rate 64 /min Eckert Talib [facility] 11-28-2024 10:23-0400 SaO2% (BldA) [Mass fraction] 100 % Eckert Talib [facility] 11-28-2024 10:23-0400 Diastolic blood pressure 86 mm[Hg] Babar Mayers [facility] 11-28-2024 10:23-0400 Mean blood pressure 101 mm[Hg] Babar Mayers [facility] 11-28-2024 10:23-0400 Systolic blood pressure 133 mm[Hg] Babar Mayers [facility] 11-28-2024 10:23-0400 Respiratory rate 16 /min Eckert Talib [facility] 11-28-2024 10:19-0400 Diastolic blood pressure 97 mm[Hg] Babar Mayers [facility] 11-28-2024 10:19-0400 Heart rate 81 /min Babar Talib [facility] 11-28-2024 10:19-0400 SaO2% (BldA) [Mass fraction] 97 % Babar Mayers [facility] 11-28-2024 10:19-0400 Systolic blood pressure 137 mm[Hg] Babar Mayers [facility] 11-28-2024 09:10-0400 Heart rate 77 /min Babar Mayers [facility] 11-28-2024 09:10-0400 SaO2% (BldA) [Mass fraction] 99 % Babar Mayers [facility] 11-28-2024 09:09-0400 Diastolic blood pressure 97 mm[Hg] Babar Mayers [facility] 11-28-2024 09:09-0400 Mean blood pressure 115 mm[Hg] Babar Mayers [facility] 11-28-2024 09:09-0400 Systolic blood pressure 149 mm[Hg] Babar Mayers [facility] 11-28-2024 09:09-0400 Body temperature 98.06 [degF] Babar Mayers [facility] 11-28-2024 09:06-0400 Respiratory rate 20 /min Babar Mayers [facility] 11-15-2024 13:35-0500 Diastolic blood pressure 93 mm[Hg] Orlando Kate [facility] 11-15-2024 13:35-0500 Heart rate 90 /min Oralndorayo Kate [facility] 11-15-2024 13:35-0500 Mean blood pressure 106 mm[Hg] Orlando Kate [facility] 11-15-2024 13:35-0500 Respiratory rate 14 /min Orlando Kate [facility] 11-15-2024 13:35-0500 Systolic blood pressure 131 mm[Hg] Orlandorayo Kate [facility] 10-18-2024 08:08-0500 Body temperature 98.24 [degF] [facility] 10-18-2024 08:08-0500 Diastolic blood pressure 88 mm[Hg] [facility] 10-18-2024 08:08-0500 Heart rate 86 /min [facility] 10-18-2024 08:08-0500 Respiratory rate 16 /min [facility] 10-18-2024 08:08-0500 SaO2% (BldA) [Mass fraction] 100 % Ast[facility] 10-18-2024 08:08-0500 Systolic blood pressure 123 mm[Hg] [facility] 09-21-2024 11:17-0500 Body mass index (BMI) [Ratio] 30.12 kg/m2 Christopher Suzie DO Work Phone: [facility] 09-21-2024 11:17-0500 Body weight 84.64 kg Christopher Suzie DO Work Phone: [facility] 09-21-2024 11:17-0500 Diastolic blood pressure 84 mm[Hg] Christopher Suzie DO Work Phone: [facility] 09-21-2024 11:17-0500 Heart rate 80 /min Christopher Suzie DO Work Phone: [facility] 09-21-2024 11:17-0500 SaO2% (BldA) [Mass fraction] 98 % Christopher Suzie DO Work Phone: [facility] 09-21-2024 11:17-0500 Systolic blood pressure 118 mm[Hg] Christopher Suzie DO Work Phone: [facility] 09-15-2024 16:36-0500 Diastolic blood pressure 82 mm[Hg] [facility] 09-15-2024 16:36-0500 Heart rate 55 /min [facility] 09-15-2024 16:36-0500 Respiratory rate 23 /min [facility] 09-15-2024 16:36-0500 SaO2% (BldA) [Mass fraction] 100 % [facility] 09-15-2024 16:36-0500 Systolic blood pressure 147 mm[Hg] [facility] 09-15-2024 13:29-0500 Body height 170.18 cm [facility] 09-15-2024 13:29-0500 Body temperature 98 [degF] [facility] 09-15-2024 13:29-0500 Body weight 89 kg [facility] 09-13-2024 09:40-0500 Body height 170.[address] 09-13-2024 09:40-0500 Body mass index (BMI) [Ratio] 29.44 kg/m2 [address] 09-13-2024 09:40-0500 Body weight 85.[address] 09-13-2024 09:40-0500 Diastolic blood pressure 76 mm[Hg] [address] 09-13-2024 09:40-0500 Systolic blood pressure 118 mm[Hg] [address] 08-08-2024 15:29-0500 Diastolic blood pressure 70 mm[Hg] Aleah Howard MD Work Phone: [facility] 08-08-2024 15:29-0500 Systolic blood pressure 110 mm[Hg] Aleah Howard MD Work Phone: [facility] 08-08-2024 15:28-0500 Body height 170.2 cm Aleah Howard MD Work Phone: [facility] 08-08-2024 15:28-0500 Body mass index (BMI) [Ratio] 29.44 kg/m2 Aleah Howard MD Work Phone: [facility] 08-08-2024 15:28-0500 Body weight 85.28 kg Aleah Howard MD Work Phone: [facility] 08-08-2024 15:28-0500 Heart rate 75 /min Aleah Howard MD Work Phone: [facility] 07-25-2024 15:08-0500 Body mass index (BMI) [Ratio] 28.94 kg/m2 Tevin Carson DO Work Phone: [facility] 07-25-2024 15:08-0500 Body weight 83.8 kg Tevin Carson DO Work Phone: [facility] 07-25-2024 15:08-0500 Diastolic blood pressure 72 mm[Hg] Tevin Carson DO Work Phone: [facility] 07-25-2024 15:08-0500 Heart rate 67 /min Tevin Carson DO Work Phone: [facility] 07-25-2024 15:08-0500 SaO2% (BldA) [Mass fraction] 100 % Tevin Henriqueze DO Work Phone: [facility] 07-25-2024 15:08-0500 Systolic blood pressure 122 mm[Hg] Tevin Carson DO Work Phone: [facility] 07-04-2024 11:01-0400 Body height 170.2 cm Fatuma Tyler FIELD SUPPORT TECHNICIAN.PYRIDINE RECOVERY OPERATOR Work Phone: [facility] 07-04-2024 11:01-0400 Body mass index (BMI) [Ratio] 28.98 kg/m2 Bellaa Tyler FIELD SUPPORT TECHNICIAN.PYRIDINE RECOVERY OPERATOR Work Phone: [facility] 07-04-2024 11:01-0400 Body weight 83.92 kg Bellaa Tyler FIELD SUPPORT TECHNICIAN.PYRIDINE RECOVERY OPERATOR Work Phone: [facility] 07-01-2024 11:01-0400 Body height 170.2 cm Tevin Carson DO Work Phone: [facility] 07-01-2024 11:01-0400 Body mass index (BMI) [Ratio] 29.8 kg/m2 Tevin Carson DO Work Phone: [facility] 07-01-2024 11:01-0400 Body weight 86.3 kg Tevin Carson DO Work Phone: [facility] 07-01-2024 11:01-0400 Diastolic blood pressure 59 mm[Hg] Tevin Carson DO Work Phone: [facility] 07-01-2024 11:01-0400 Heart rate 72 /min Tevin Carson DO Work Phone: [facility] 07-01-2024 11:01-0400 SaO2% (BldA) [Mass fraction] 99 % Tevin Carson DO Work Phone: [facility] 07-01-2024 11:01-0400 Systolic blood pressure 101 mm[Hg] Tevin Carson DO Work Phone: [facility] 03-08-2024 15:02-0400 Diastolic blood pressure 78 mm[Hg] Alexis Shukla [facility] 03-08-2024 15:02-0400 Heart rate 65 /min Alexis Shukla [facility] 03-08-2024 15:02-0400 Mean blood pressure 89 mm[Hg] Alexis Lopeze [facility] 03-08-2024 15:02-0400 SaO2% (BldA) [Mass fraction] 100 % Alexis Lopeze [facility] 03-08-2024 15:02-0400 Systolic blood pressure 110 mm[Hg] Alexis Lopeze [facility] 03-08-2024 14:00-0400 SaO2% (BldA) [Mass fraction] 99 % Alexis Lopeze [facility] 03-08-2024 13:37-0400 Body temperature 98.42 [degF] Alexis Shukla [facility] 03-08-2024 13:37-0400 Diastolic blood pressure 82 mm[Hg] Alexis Shukla [facility] 03-08-2024 13:37-0400 Heart rate 70 /min Alexis Lopeze [facility] 03-08-2024 13:37-0400 Respiratory rate 18 /min Alexis Lopeze [facility] 03-08-2024 13:37-0400 SaO2% (BldA) [Mass fraction] 100 % Alexis Shukla [facility] 03-08-2024 13:37-0400 Systolic blood pressure 126 mm[Hg] Alexis Vazquez [facility] 03-08-2024 13:14-0400 Body temperature 98.24 [degF] Alexis Shukla [facility] 03-08-2024 13:14-0400 Diastolic blood pressure 87 mm[Hg] Alexis Shukla [facility] 03-08-2024 13:14-0400 Heart rate 67 /min Alexis Shukla [facility] 03-08-2024 13:14-0400 Respiratory rate 16 /min Alexis Shukla [facility] 03-08-2024 13:14-0400 Systolic blood pressure 135 mm[Hg] Alexis Shukla [facility] 03-08-2024 08:06-0400 Body height 170.2 cm Elia Baires DO Work Phone: [facility] 03-08-2024 08:06-0400 Body mass index (BMI) [Ratio] 30.9 kg/m2 Elia Baires DO Work Phone: [facility] 03-08-2024 08:06-0400 Body weight 89.5 kg Elia Baires DO Work Phone: [facility] 03-08-2024 08:06-0400 Diastolic blood pressure 72 mm[Hg] Elia Baires DO Work Phone: [facility] 03-08-2024 08:06-0400 Heart rate 82 /min Elia Baires DO Work Phone: [facility] 03-08-2024 08:06-0400 SaO2% (BldA) [Mass fraction] 100 % Elia Baires DO Work Phone: [facility] 03-08-2024 08:06-0400 Systolic blood pressure 114 mm[Hg] Elia Baires DO Work Phone: [facility] 01-04-2024 09:28-0400 Body height 170.2 cm Elia Baires DO Work Phone: [facility] 01-04-2024 09:28-0400 Body mass index (BMI) [Ratio] 31.96 kg/m2 Eliafredrick Baires DO Work Phone: [facility] 01-04-2024 09:28-0400 Body weight 92.55 kg Eliakeshav Baires DO Work Phone: [facility] 01-04-2024 09:28-0400 Diastolic blood pressure 86 mm[Hg] Eliakeshav Baires DO Work Phone: [facility] 01-04-2024 09:28-0400 Heart rate 92 /min Elia Baires DO Work Phone: [facility] 01-04-2024 09:28-0400 SaO2% (BldA) [Mass fraction] 97 % Eliafredrick Baires DO Work Phone: [facility] 01-04-2024 [id number] Systolic blood pressure 123 mm[Hg] Eliafredrick Baires DO Work Phone: [facility] 12-31-2023 11:17-0400 Heart rate 76 /min DO Jennie Durand Work Phone: [facility] 12-31-2023 11:14-0400 Body temperature 98.2 [degF] DO Jennie Durand Work Phone: [facility] 12-31-2023 11:14-0400 Diastolic blood pressure 73 mm[Hg] DO Jennie Durand Work Phone: [facility] 12-31-2023 11:14-0400 Respiratory rate 18 /min DO Jennie Durand Work Phone: [facility] 12-31-2023 11:14-0400 SaO2% (BldA) [Mass fraction] 97 % DO Jennie Durand Work Phone: [facility] 12-31-2023 11:14-0400 Systolic blood pressure 138 mm[Hg] DO Jennie Durand Work Phone: [facility] 12-31-2023 11:13-0400 Body height 170.18 cm DO Jennie Durand Work Phone: [facility] 12-31-2023 11:13-0400 Body weight 89.35 kg DO Jennie Durand Work Phone: [facility] 12-24-2023 11:58-0400 Body height 170.18 cm DO Jennie Durand Work Phone: [facility] 12-24-2023 11:58-0400 Body temperature 97.8 [degF] DO Jennie Durand Work Phone: [facility] 12-24-2023 11:58-0400 Body weight 89 kg DO Jennie Durand Work Phone: [facility] 12-24-2023 11:58-0400 Diastolic blood pressure 91 mm[Hg] DO Jennie Durand Work Phone: [facility] 12-24-2023 11:58-0400 Heart rate 85 /min DO Jennie Durand Work Phone: [facility] 12-24-2023 11:58-0400 Respiratory rate 15 /min DO Jennie Durand Work Phone: [facility] 12-24-2023 11:58-0400 SaO2% (BldA) [Mass fraction] 100 % DO Jennie Durand Work Phone: [facility] 12-24-2023 11:58-0400 Systolic blood pressure 137 mm[Hg] DO Jennie Durand Work Phone: [facility] 12-10-2023 12:35-0400 Heart rate 70 /min DO Jennie Durand Work Phone: [facility] 12-10-2023 12:35-0400 Respiratory rate 16 /min DO Jennie Durand Work Phone: [facility] 12-10-2023 12:35-0400 SaO2% (BldA) [Mass fraction] 98 % DO Jennie Durand Work Phone: [facility] 12-10-2023 12:08-0400 Body height 170.18 cm DO Jennie Hameede Work Phone: [facility] 12-10-2023 12:08-0400 Body temperature 98 [degF] DO Jennie Durand Work Phone: [facility] 12-10-2023 12:08-0400 Body weight 89.8 kg DO Jennie Hameede Work Phone: [facility] 12-10-2023 12:08-0400 Diastolic blood pressure 76 mm[Hg] DO Jennie Hameede Work Phone: [facility] 12-10-2023 12:08-0400 Systolic blood pressure 123 mm[Hg] DO Jennie Durand Work Phone: [facility] 09-18-2023 08:49-0500 Diastolic blood pressure 72 mm[Hg] Gamaliel Vickers DO Work Phone: [employer] 09-18-2023 08:49-0500 Heart rate 58 /min Gamaliel Vickers DO Work Phone: [employer] 09-18-2023 08:49-0500 Respiratory rate 18 /min Gamaliel Vickers DO Work Phone: [employer] 09-18-2023 08:49-0500 SaO2% (BldA) [Mass fraction] 100 % Gamaliel Vickers DO Work Phone: [employer] 09-18-2023 08:49-0500 Systolic blood pressure 111 mm[Hg] Gamaliel Vickers DO Work Phone: [employer] 09-18-2023 08:24-0500 Body temperature 97.11 [degF] Gamaliel Vickers DO Work Phone: [employer] 09-18-2023 07:23-0500 Body height 170.2 cm [facility]-18-[facility] 07:23-0500 Body mass index (BMI) [Ratio] 31.79 kg/m2 Gamaliel Vickers DO [facility] 09-18-2023 07:23-0500 Body weight 92.08 kg Gamaliel Vickers DO [facility] 08-15-2023 13:37-0500 Diastolic blood pressure 69 mm[Hg] DO Jennie Durand Work Phone: [facility] 08-15-2023 13:37-0500 Heart rate 70 /min DO Jennie Durand Work Phone: [facility] 08-15-2023 13:37-0500 Respiratory rate 18 /min DO Jennie Durand Work Phone: [facility] 08-15-2023 13:37-0500 SaO2% (BldA) [Mass fraction] 99 % DO Jennie Udrand Work Phone: [facility] 08-15-2023 13:37-0500 Systolic blood pressure 107 mm[Hg] DO Jennie Durand Work Phone: [facility] 08-15-2023 11:29-0500 Body height 170.18 cm DO Jennie Durand Work Phone: [facility] 08-15-2023 11:29-0500 Body temperature 98.2 [degF] DO Jennie Durand Work Phone: [facility] 08-15-2023 11:29-0500 Body weight 86.18 kg DO Jennie Durand Work Phone: [facility] 08-14-2023 16:43-0500 Body height 170.18 cm DO Jennie Durand Work Phone: [facility] 08-14-2023 16:43-0500 Body temperature 98.2 [degF] DO Jennie Durand Work Phone: [facility] 08-14-2023 16:43-0500 Body weight 88.6 kg DO Jennie Durand Work Phone: [facility] 08-14-2023 16:43-0500 Diastolic blood pressure 66 mm[Hg] DO Jennie Durand Work Phone: [facility] 08-14-2023 16:43-0500 Heart rate 80 /min DO Jennie Durand Work Phone: [facility] 08-14-2023 16:43-0500 Respiratory rate 18 /min DO Jennie Durand Work Phone: [facility] 08-14-2023 16:43-0500 SaO2% (BldA) [Mass fraction] 98 % DO Jennie Durand Work Phone: [facility] 08-14-2023 16:43-0500 Systolic blood pressure 118 mm[Hg] DO Jennie Durand Work Phone: [facility] 08-13-2023 11:15-0500 Body height 170.18 cm Imad Asaad Other [email or web address] Other 08-13-2023 11:15-0500 Body mass index (BMI) [Ratio] 30.54 kg/m2 Imad Asaad Other [email or web address] Other 08-13-2023 11:15-0500 Body weight 88.45 kg Imad Asaad Other [email or web address] Other 08-13-2023 11:15-0500 Diastolic blood pressure 84 mm[Hg] Imad Asaad Other [email or web address] Other 08-13-2023 11:15-0500 Systolic blood pressure 133 mm[Hg] Imad Asaad Other [email or web address] Other 07-08-2023 12:05-0400 Body height 170.18 cm Ania Javed Other [email or web address] Other 07-08-2023 12:05-0400 Body mass index (BMI) [Ratio] 30.22 kg/m2 Ania Javed Other [email or web address] Other 07-08-2023 12:05-0400 Body temperature 99 [degF] Ania Javed Other [email or web address] Other 07-08-2023 12:05-0400 Body weight 87.54 kg Ania Javed Other [email or web address] Other 07-08-2023 12:05-0400 Diastolic blood pressure 64 mm[Hg] Ania Javed Other [email or web address] Other 07-08-2023 12:05-0400 Respiratory rate 19 /min Ania Javed Other [email or web address] Other 07-08-2023 12:05-0400 SaO2% (BldA) [Mass fraction] 98 % Ania Javed Other [email or web address] Other 07-08-2023 12:05-0400 Systolic blood pressure 110 mm[Hg] Ania Tegan Other [email or web address] Other 07-03-2023 11:05-0400 Diastolic blood pressure 80 mm[Hg] DO Jennie Durand Work Phone: [facility] 07-03-2023 11:05-0400 Heart rate 78 /min DO Jennie Durand Work Phone: [facility] 07-03-2023 11:05-0400 Respiratory rate 16 /min DO Jennie Durand Work Phone: [facility] 07-03-2023 11:05-0400 SaO2% (BldA) [Mass fraction] 99 % DO Jennie Durand Work Phone: [facility] 07-03-2023 11:05-0400 Systolic blood pressure 119 mm[Hg] DO Jennie Durand Work Phone: [facility] 07-03-2023 10:10-0400 Body height 170.18 cm DO Jennie Durand Work Phone: [facility] 07-03-2023 10:10-0400 Body temperature 98.7 [degF] DO Jennie Durand Work Phone: [facility] 07-03-2023 10:10-0400 Body weight 86.9 kg DO Jennie Durand Work Phone: [facility] 07-02-2023 14:06-0400 Body temperature 98.06 [degF] Bakari Henrik [facility] 07-02-2023 14:06-0400 Diastolic blood pressure 78 mm[Hg] Bakari Chester [facility] 07-02-2023 14:06-0400 Heart rate 91 /min Bakari Henrik [facility] 07-02-2023 14:06-0400 Respiratory rate 18 /min Bakari Chester [facility] 07-02-2023 14:06-0400 SaO2% (BldA) [Mass fraction] 100 % Bakari Chester [facility] 07-02-2023 14:06-0400 Systolic blood pressure 121 mm[Hg] Bakari Chester [facility] 01-15-2023 13:30-0400 Diastolic blood pressure 85 mm[Hg] Bakari Henrik [facility] 01-15-2023 13:30-0400 Heart rate 71 /min Bakari Henrik [facility] 01-15-2023 13:30-0400 Mean blood pressure 98 mm[Hg] Bakari Henrik [facility] 01-15-2023 13:30-0400 Respiratory rate 18 /min Bakari Henrik [facility] 01-15-2023 13:30-0400 SaO2% (BldA) [Mass fraction] 100 % Bakari Henrik [facility] 01-15-2023 13:30-0400 Systolic blood pressure 125 mm[Hg] Bakari Henrik [facility] 01-15-2023 12:30-0400 Diastolic blood pressure 99 mm[Hg] Bakari Henrik [facility] 01-15-2023 12:30-0400 Heart rate 78 /min Bakari Henrik [facility] 01-15-2023 12:30-0400 Mean blood pressure 107 mm[Hg] Abkari Henrik [facility] 01-15-2023 12:30-0400 Respiratory rate 18 /min Bakari Henrik [facility] 01-15-2023 12:30-0400 SaO2% (BldA) [Mass fraction] 100 % Bakari Henrik [facility] 01-15-2023 12:30-0400 Systolic blood pressure 122 mm[Hg] Bakari Henrik [facility] 01-15-2023 10:50-0400 Body temperature 98.42 [degF] Bakari Henrik [facility] 01-15-2023 10:50-0400 Diastolic blood pressure 74 mm[Hg] Bakari Chester [facility] 01-15-2023 10:50-0400 Heart rate 77 /min Bakari Chester [facility] 01-15-2023 10:50-0400 Mean blood pressure 92 mm[Hg] Bakari Chester [facility] 01-15-2023 10:50-0400 Respiratory rate 17 /min Bakari Chester [facility] 01-15-2023 10:50-0400 SaO2% (BldA) [Mass fraction] 99 % Bakari Chester [facility] 01-15-2023 10:50-0400 Systolic blood pressure 129 mm[Hg] Bakari Chester [facility] 12-05-2022 13:20-0400 Diastolic blood pressure 74 mm[Hg] Gal Thiago [facility] 12-05-2022 13:20-0400 Heart rate 58 /min Gal Das [facility] 12-05-2022 13:20-0400 Respiratory rate 18 /min Gal Das [facility] 12-05-2022 13:20-0400 SaO2% (BldA) [Mass fraction] 100 % Gal Das [facility] 12-05-2022 13:20-0400 Systolic blood pressure 110 mm[Hg] Gal Das [facility] 12-05-2022 12:00-0400 Heart rate 54 /min Gal Das [facility] 12-05-2022 12:00-0400 SaO2% (BldA) [Mass fraction] 100 % Gal Das [facility] 12-05-2022 11:59-0400 Diastolic blood pressure 72 mm[Hg] Gal Das [facility] 12-05-2022 11:59-0400 Mean blood pressure 84 mm[Hg] Gal Das [facility] 12-05-2022 11:59-0400 Systolic blood pressure 109 mm[Hg] Gal Das [facility] 12-05-2022 11:53-0400 Body temperature 97.52 [degF] Gal Das [facility] 12-05-2022 11:53-0400 Diastolic blood pressure 73 mm[Hg] Gal Das [facility] 12-05-2022 11:53-0400 Heart rate 59 /min Gal Das [facility] 12-05-2022 11:53-0400 Mean blood pressure 87 mm[Hg] Gal Das [facility] 12-05-2022 11:53-0400 Respiratory rate 14 /min Gal Das [facility] 12-05-2022 11:53-0400 SaO2% (BldA) [Mass fraction] 100 % Gal Das [facility] 12-05-2022 11:53-0400 Systolic blood pressure 115 mm[Hg] Gal Das [facility] 12-05-2022 11:40-0400 Mean blood pressure 80 mm[Hg] Gal Das [facility] 12-05-2022 11:40-0400 Respiratory rate 18 /min Gal Das [facility] 12-05-2022 11:30-0400 Mean blood pressure 90 mm[Hg] Gal Das [facility] 12-05-2022 11:15-0400 Body temperature 97.34 [degF] Gal Das [facility] 12-05-2022 11:10-0400 Respiratory rate 18 /min Gal Das [facility] 12-05-2022 11:05-0400 Respiratory rate 21 /min Gal Das [facility] 12-05-2022 11:00-0400 Respiratory rate 11 /min Gal Das [facility] 12-05-2022 07:15-0400 Mean blood pressure 79 mm[Hg] Gal Das [facility] 12-05-2022 07:15-0400 Body temperature 97.88 [degF] Gal aDs [facility] 12-05-2022 07:15-0400 Heart rate 72 /min Gal Das [facility] 12-05-2022 07:12-0400 Mean blood pressure 82 mm[Hg] Gal Das [facility] 11-21-2022 10:44-0500 Diastolic blood pressure 75 mm[Hg] Gal Das [facility] 11-21-2022 10:44-0500 Heart rate 67 /min Gal Das [facility] 11-21-2022 10:44-0500 Mean blood pressure 88 mm[Hg] Gal Das [facility] 11-21-2022 10:44-0500 Systolic blood pressure 112 mm[Hg] Gal Das [facility] 11-21-2022 10:44-0500 Heart rate 71 /min Gal Das [facility] 11-21-2022 10:44-0500 SaO2% (BldA) [Mass fraction] 100 % Gal Das [facility] 11-21-2022 10:43-0500 Diastolic blood pressure 79 mm[Hg] Gal Das [facility] 11-21-2022 10:43-0500 Mean blood pressure 91 mm[Hg] Gal Das [facility] 11-21-2022 10:43-0500 Systolic blood pressure 116 mm[Hg] Gal Das [facility] 11-21-2022 10:43-0500 Respiratory rate 16 /min Gal Das [facility] 11-20-2022 08:09-0500 Body height 170.2 cm Eileen Alvarez MD Work Phone: [facility] 11-20-2022 08:09-0500 Body weight 85.73 kg Eileen Alvarez MD Work Phone: [facility] 11-20-2022 08:09-0500 Diastolic blood pressure 81 mm[Hg] Eileen Alvarez MD Work Phone: [facility] 11-20-2022 08:09-0500 Heart rate 67 /min Eileen Alvarez MD Work Phone: [facility] 11-20-2022 08:09-0500 SaO2% (BldA) [Mass fraction] 100 % Eileen Alvarez MD Work Phone: [facility] 11-20-2022 08:09-0500 Systolic blood pressure 137 mm[Hg] Eileen Alvarez MD Work Phone: [facility] 11-03-2022 12:57-0500 Blood Pressure Location Nakia Mcqueen [facility] 11-03-2022 12:57-0500 Body [...] Systolic blood pressure 104 mm[Hg] Nakia Mcqueen [facility] 09-24-2022 06:57-0500 Blood Pressure Location Aimee Valadezell [facility] 09-24-2022 06:57-0500 Body temperature 98.24 [degF] Aimee Walker [facility] 09-24-2022 06:57-0500 Diastolic blood pressure 64 mm[Hg] Aimee Walker [facility] 09-24-2022 06:57-0500 Heart rate 77 /min Aimee Walker [facility] 09-24-2022 06:57-0500 SaO2% (BldA) [Mass fraction] 99 % Aimee Walker [facility] 09-24-2022 06:57-0500 Systolic blood pressure 118 mm[Hg] Aimee Walker [facility] 08-22-2022 10:31-0500 Blood Pressure Location [facility] 08-22-2022 10:31-0500 Body temperature 98.06 [degF] [facility] 08-22-2022 10:31-0500 Diastolic blood pressure 76 mm[Hg] [facility] 08-22-2022 10:31-0500 Heart rate 95 /min [facility] 08-22-2022 10:31-0500 SaO2% (BldA) [Mass fraction] 98 % [facility] 08-22-2022 10:31-0500 Systolic blood pressure 110 mm[Hg] [facility] 08-19-2022 09:45-0500 Diastolic blood pressure 69 mm[Hg] DO Jennie Durand Work Phone: [facility] 08-19-2022 09:45-0500 Heart rate 82 /min DO Jennie Durand Work Phone: [facility] 08-19-2022 09:45-0500 Respiratory rate 16 /min DO Jennie Durand Work Phone: [facility] 08-19-2022 09:45-0500 SaO2% (BldA) [Mass fraction] 95 % DO Jennie Durand Work Phone: [facility] 08-19-2022 09:45-0500 Systolic blood pressure 104 mm[Hg] DO Jennie Durand Work Phone: [facility] 08-19-2022 07:41-0500 Body height 170.18 cm DO Jennie Durand Work Phone: [facility] 08-19-2022 07:41-0500 Body weight 83.6 kg DO Jennie Durand Work Phone: [facility] 08-18-2022 17:26-0500 Body temperature 98.06 [degF] Alexis Shukla [facility] 08-18-2022 17:26-0500 Diastolic blood pressure 83 mm[Hg] Alexis Shukla [facility] 08-18-2022 17:26-0500 Heart rate 84 /min Alexis Shukla [facility] 08-18-2022 17:26-0500 Respiratory rate 18 /min Alexis Shukla [facility] 08-18-2022 17:26-0500 SaO2% (BldA) [Mass fraction] 98 % Alexis Shukla [facility] 08-18-2022 17:26-0500 Systolic blood pressure 120 mm[Hg] Alexis Shukla [facility] 08-12-2022 15:50-0500 Body temperature 97.9 [degF] DO Jennie Durand Work Phone: [facility] 08-12-2022 15:50-0500 Diastolic blood pressure 83 mm[Hg] DO Jennie Durand Work Phone: [facility] 08-12-2022 15:50-0500 Heart rate 64 /min DO Jennie Durand Work Phone: [facility] 08-12-2022 15:50-0500 Respiratory rate 20 /min DO Jennie Durand Work Phone: [facility] 08-12-2022 15:50-0500 SaO2% (BldA) [Mass fraction] 100 % DO Jennie Durand Work Phone: [facility] 08-12-2022 15:50-0500 Systolic blood pressure 136 mm[Hg] DO Jennie Durand Work Phone: [facility] 08-12-2022 11:00-0500 Body height 170.18 cm DO Jennie Durand Work Phone: [facility] 08-12-2022 06:00-0500 Body weight 88.1 kg DO Jennie Durand Work Phone: [facility] 08-08-2022 10:30-0500 Diastolic blood pressure 76 mm[Hg] Bakari Chester [facility] 08-08-2022 10:30-0500 Heart rate 58 /min Bakari Henrik [facility] 08-08-2022 10:30-0500 Mean blood pressure 88 mm[Hg] Bakari Henrik [facility] 08-08-2022 10:30-0500 Respiratory rate 20 /min Bakari Henrik [facility] 08-08-2022 10:30-0500 SaO2% (BldA) [Mass fraction] 100 % Bakari Henrik [facility] 08-08-2022 10:30-0500 Systolic blood pressure 112 mm[Hg] Bakari Henrik [facility] 08-08-2022 10:00-0500 Diastolic blood pressure 86 mm[Hg] Bakari Henrik [facility] 08-08-2022 10:00-0500 Heart rate 64 /min Bakari Henrik [facility] 08-08-2022 10:00-0500 Mean blood pressure 97 mm[Hg] Bakari Henrik [facility] 08-08-2022 10:00-0500 Systolic blood pressure 120 mm[Hg] Bakari Henrik [facility] 08-08-2022 09:13-0500 gluc 98 mg/dL Bakari Chester [facility] 08-08-2022 09:13-0500 gluc Bakari Chester [facility] 08-08-2022 09:06-0500 Body temperature 97.7 [degF] Bakari Chester [facility] 08-08-2022 09:06-0500 Diastolic blood pressure 87 mm[Hg] Bakari Chester [facility] 08-08-2022 09:06-0500 Heart rate 79 /min Bakari Chester [facility] 08-08-2022 09:06-0500 Respiratory rate 18 /min Bakari Chester [facility] 08-08-2022 09:06-0500 SaO2% (BldA) [Mass fraction] 100 % Bakari Chester [facility] 08-08-2022 09:06-0500 Systolic blood pressure 127 mm[Hg] Bakari Chester [facility] 07-21-2022 10:50-0500 Blood Pressure Location Aimee Valadezell [facility] 07-21-2022 10:50-0500 Body temperature 97.7 [degF] Aimee Walker [facility] 07-21-2022 10:50-0500 Diastolic blood pressure 72 mm[Hg] Aimee Valadezell [facility] 07-21-2022 10:50-0500 Heart rate 74 /min Aimee Valadezell [facility] 07-21-2022 10:50-0500 SaO2% (BldA) [Mass fraction] 99 % Aimee Walker [facility] 07-21-2022 10:50-0500 Systolic blood pressure 128 mm[Hg] Aimee Walker [facility] 05-13-2022 10:09-0400 Diastolic blood pressure 74 mm[Hg] Alexis Christyy [facility] [place] 05-13-2022 10:09-0400 Heart rate 68 /min Alexis Rivers [facility] [place] 05-13-2022 10:09-0400 Systolic blood pressure 112 mm[Hg] Alexis Christyy [facility] 04-21-2022 09:39-0400 Blood Pressure Location Aimee Valadezell [facility] 04-21-2022 09:39-0400 Body temperature 98.24 [degF] Aimee Walker [facility] 04-21-2022 09:39-0400 Diastolic blood pressure 72 mm[Hg] Aimee Walker [facility] 04-21-2022 09:39-0400 Heart rate 94 /min Aimee Walker [facility] 04-21-2022 09:39-0400 SaO2% (BldA) [Mass fraction] 100 % Aimee Walker [facility] 04-21-2022 09:39-0400 Systolic blood pressure 112 mm[Hg] Aimee Walker [facility] 04-20-2022 14:56-0400 Body temperature 98.24 [degF] [facility] 04-20-2022 14:56-0400 Diastolic blood pressure 72 mm[Hg] [facility] 04-20-2022 14:56-0400 Heart rate 69 /min [facility] 04-20-2022 14:56-0400 Respiratory rate 18 /min [facility] 04-20-2022 14:56-0400 SaO2% (BldA) [Mass fraction] 99 % [facility] 04-20-2022 14:56-0400 Systolic blood pressure 111 mm[Hg] [facility] 04-03-2022 19:17-0400 Hourly Rounding Kaylinn Dokken [facility] 04-03-2022 19:17-0400 Promise to Return Kaylinn Dokken [facility] 04-03-2022 19:15-0400 Diastolic blood pressure 71 mm[Hg] Kaylinn Dokken [facility] 04-03-2022 19:15-0400 Heart rate 63 /min Kaylinn Dokken [facility] 04-03-2022 19:15-0400 Mean blood pressure 82 mm[Hg] Kaylinn Dokken [facility] 04-03-2022 19:15-0400 Respiratory rate 18 /min Kaylinn Dokken [facility] 04-03-2022 19:15-0400 SaO2% (BldA) [Mass fraction] 100 % Kaylinn Dokken [facility] 04-03-2022 19:15-0400 Systolic blood pressure 105 mm[Hg] Kaylinn Dokken [facility] 04-03-2022 17:09-0400 Body temperature 98.06 [degF] Raymondinn Dokken [facility] 04-03-2022 17:09-0400 Diastolic blood pressure 83 mm[Hg] Raymondinn Dokken [facility] 04-03-2022 17:09-0400 Heart rate 87 /min Larry Gregorioen [facility] 04-03-2022 17:09-0400 Respiratory rate 18 /min Marlynn Darlineen [facility] 04-03-2022 17:09-0400 SaO2% (BldA) [Mass fraction] 99 % Larry Gregorioen [facility] 04-03-2022 17:09-0400 Systolic blood pressure 119 mm[Hg] Marlynn Darlineen [facility] 02-06-2022 09:06-0400 Blood Pressure Location Aimee Valadezell [facility] 02-06-2022 09:06-0400 Body temperature 97.52 [degF] Aimee Walker [facility] 02-06-2022 09:06-0400 Diastolic blood pressure 72 mm[Hg] Aimee Walker [facility] 02-06-2022 09:06-0400 Heart rate 81 /min Aimee Walker [facility] 02-06-2022 09:06-0400 SaO2% (BldA) [Mass fraction] 100 % Aimee Valadezell [facility] 02-06-2022 09:06-0400 Systolic blood pressure 130 mm[Hg] Aimee Valadezell [facility] 01-29-2022 10:31-0400 Blood Pressure Location Aimee Valadezell [facility] 01-29-2022 10:31-0400 Body temperature 97.16 [degF] Aimee Valadezell [facility] 01-29-2022 10:31-0400 Diastolic blood pressure 76 mm[Hg] Aimee Walker [facility] 01-29-2022 10:31-0400 Heart rate 94 /min Aimee Valadezell [facility] 01-29-2022 10:31-0400 SaO2% (BldA) [Mass fraction] 98 % Aimeeerin Valadezell [facility] 01-29-2022 10:31-0400 Systolic blood pressure 118 mm[Hg] Aimee Walker [facility] 02-01-2021 07:15-0400 Body temperature 97.7 [degF] Berry Lawson MD Work Phone: [facility] [employer] Work Phone: 02-01-2021 07:15-0400 Diastolic blood pressure 63 mm[Hg] Berry Lawson MD Work Phone: [employer] Work Phone: 02-01-2021 07:15-0400 Heart rate 82 /min Berry Lawson MD Work Phone: [employer] Work Phone: 02-01-2021 07:15-0400 Respiratory rate 18 /min Berry Lawson MD Work Phone: [employer] Work Phone: 02-01-2021 07:15-0400 SaO2% (BldA) [Mass fraction] 98 % Berry Lawson MD Work Phone: [employer] Work Phone: 02-01-2021 07:15-0400 Systolic blood pressure 110 mm[Hg] Berry Lawson MD Work Phone: [employer] Work Phone: 01-30-2021 16:54-0400 Body height 170.2 cm Berry Lawson MD Work Phone: [employer] Work Phone: 01-30-2021 16:54-0400 Body mass index (BMI) [Ratio] 38.53 kg/m2 Berry Lawson MD Work Phone: [employer] Work Phone: 01-30-2021 16:54-0400 Body weight 111.58 kg Berry Lawson MD Work Phone: [employer] Work Phone: 01-30-2021 14:27-0400 Diastolic blood pressure 66 mm[Hg] David Nash MD Work Phone: [employer] Work Phone: 01-30-2021 14:27-0400 Heart rate 93 /min David Nash MD Work Phone: [employer] Work Phone: 01-30-2021 14:27-0400 Respiratory rate 16 /min David Nash MD Work Phone: [employer] Work Phone: 01-30-2021 14:27-0400 SaO2% (BldA) [Mass fraction] 98 % David Nash MD Work Phone: [employer] Work Phone: 01-30-2021 14:27-0400 Systolic blood pressure 107 mm[Hg] David Nash MD Work Phone: [employer] Work Phone: 01-30-2021 09:51-0400 Body temperature 97.2 [degF] David Nash MD Work Phone: [employer] Work Phone: 01-26-2021 09:00-0400 Body temperature 98.2 [degF] Gamaliel Vickers [employer] Work Phone: [employer] Work Phone: 01-26-2021 09:00-0400 Diastolic blood pressure 77 mm[Hg] Gamaliel Vickers DO Work Phone: [employer] Work Phone: 01-26-2021 09:00-0400 Heart rate 90 /min Gamaliel Vickers [employer] Work Phone: [employer] Work Phone: 01-26-2021 09:00-0400 Respiratory rate 16 /min Gamaliel Vickers DO Work Phone: [employer] Work Phone: 3 09:00-0400 SaO2% (BldA) [Mass fraction] 96 % Gamaliel Vickers DO Work Phone: [employer] Work Phone: 01-26-2021 09:00-0400 Systolic blood pressure 111 mm[Hg] Gamaliel Vickers [employer] Work Phone: [employer] Phone: 01-08-2021 07:35-0400 Body temperature 97.81 [degF] Gamaliel Vickers [employer] Work Phone: [employer] Phone: 01-08-2021 07:35-0400 SaO2% (BldA) [Mass fraction] 97 % Gamaliel Vickers [facility] Phone: [employer] Phone: 01-08-2021 07:29-0400 Diastolic blood pressure 77 mm[Hg] Gamaliel Vickers [facility] Phone: [employer] Phone: 01-08-2021 07:29-0400 Heart rate 87 /min Gamaliel Vickers [facility] Phone: [employer] Phone: 01-08-2021 07:29-0400 Respiratory rate 18 /min Gamaliel Vickers [facility] Phone: [employer] Phone: 01-08-2021 07:29-0400 Systolic blood pressure 123 mm[Hg] Gamaliel Vickers [facility] Phone: [employer] Phone: 01-07-2021 06:29-0400 Body height 170.2 cm Gamaliel Vickers [facility] Phone: [employer] Phone: 01-07-2021 06:29-0400 Body mass index (BMI) [Ratio] 40.68 kg/m2 Gamaliel Vickers [facility] Phone: [employer] Phone: 01-07-2021 06:29-0400 Body weight 117.8 kg Gamaliel Vickers [facility] Phone: [employer] Phone: 12-24-2020 10:33-0400 Body height 170.2 cm [facility] 2 [employer] Phone: 12-24-2020 10:33-0400 Body mass index (BMI) [Ratio] 42.76 kg/m2 StISVSz 2 [employer] Phone: 12-24-2020 10:33-0400 Body temperature 97.7 [degF] [facility] [employer] Phone: 12-24-2020 10:33-0400 Body weight 123.83 kg [facility]IS[facility] 2 [employer] Phone: 12-24-2020 10:33-0400 Diastolic blood pressure 76 mm[Hg] Stv 2 [employer] Phone: 12-24-2020 10:33-0400 Heart rate 71 /min [facility] [employer] Phone: 12-24-2020 10:33-0400 Respiratory rate 18 /min [facility] [employer] Phone: 12-24-2020 10:33-0400 SaO2% (BldA) [Mass fraction] 98 % [facility] [employer] Phone: 12-24-2020 10:33-0400 Systolic blood pressure 115 mm[Hg] [facility] [employer] Phone: 09-28-2020 08:40-0500 BP Diastolic 75 mm[Hg] Gamaliel Vickers [employer], [place] 09-28-2020 08:40-0500 BP Systolic 117 mm[Hg] Gamaliel Vickers [employer] [facility], [place] 09-28-2020 08:40-0500 Pulse (Heart Rate) 84 /min Gamaliel Vickers [employer] [place], [place] 09-28-2020 08:40-0500 Pulse Oximetry 100 % Gamaliel Vickers [facility], [place] 09-28-2020 08:25-0500 Body Temperature 96.8 [degF] Gamaliel Vickers [facility], [place] 09-28-2020 08:25-0500 Respiratory Rate 23 /min Gamaliel Vickers [facility] 09-28-2020 07:07-0500 BMI (Body Mass Index) 45.66 kg/m2 [place] 09-28-2020 07:07-0500 Body weight 132.22 [place] 09-28-2020 07:07-0500 Height 170.2 cm [facility] Encounter Date Encounter Type Care Provider Facility Start: 05-30-2025 End: 05-30-2025 Admission to same day surgery center Aaliyah Zamudio DO -[facility] [place] Start: 05-30-2025 End: 05-30-2025 ambulatory Jennie Durand DO Work Phone: [facility] Work Phone: Start: 05-29-2025 ambulatory Aaliyah Zamudio [facility] Start: 05-16-2025 End: 05-16-2025 Patient encounter procedure Aaliyah Zamudio DO -Pre-Surgical Testing Work Phone: Start: 05-16-2025 End: 05-16-2025 ambulatory Jennie Durand DO Work Phone: [facility] Work Phone: Start: 05-11-2025 ambulatory Lindy Keen Facility [facility] Start: 05-11-2025 Registered Recurring Nilsa Watson [facility] Start: 05-04-2025 End: 05-04-2025 Office outpatient visit 25 minutes Aaliyah Zamudio DO Work Phone: [facility] Comment on above: 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) Start: 05-04-2025 End: 05-04-2025 ambulatory AALIYAH BIRDJOSEGURDEEP Not Available Start: 04-26-2025 End: 04-26-2025 Patient encounter procedure Aaliyah Tito DO [facility] Work Phone: Start: 04-26-2025 End: 04-26-2025 ambulatory Lindy Keen APRN Work Phone: [facility] Work Phone: Start: 04-21-2025 End: 04-25-2025 ambulatory Jak W [place] Facility:[facility] Start: 04-20-2025 [facility] Start: 04-13-2025 End: 04-13-2025 Office outpatient new 60 minutes Aaliyah Buiyomisheriegurdeep DO Work Phone: [facility] Comment on above: 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); Hypertrophy of breast Start: 04-13-2025 End: 04-13-2025 ambulatory AALIYAH ZAMUDIO Not Available Start: 04-09-2025 End: 04-09-2025 Office outpatient visit 25 minutes Shazia Elise BIOMEDICAL FIELD SERVICE ENGINEER Work Phone: [facility] Comment on above: Acute pharyngitis, u nspecified etiology (Primary Dx); Pharyngitis, unspecified etiology Start: 04-09-2025 End: 04-09-2025 ambulatory SHAZIA ELISE Not Available Start: 03-29-2025 End: 03-29-2025 ambulatory Sami Brewster Facility:[facility] Start: 03-16-2025 End: 03-17-2025 Pre-admission assessment Jak Peace [facility] Start: 03-13-2025 End: 03-13-2025 ambulatory Jak W [place] Facility:[facility] Start: 03-09-2025 End: 03-09-2025 ambulatory Jennie Durand Facility:[facility] Start: 03-09-2025 End: 03-09-2025 Patient encounter procedure Babar Mayers [facility] Start: 03-03-2025 End: 03-03-2025 ambulatory Babar Mayers Facility:[facility] Start: 03-03-2025 End: 03-03-2025 Pain Management Babar Mayers [facility] Start: 03-02-2025 End: 03-02-2025 ambulatory MARII Keshav PRABHJOT Facility:[facility] Start: 03-02-2025 End: 03-02-2025 Patient encounter procedure MARII BASSNOEMÍ [facility] Start: 02-17-2025 End: 02-17-2025 Emergency department patient visit Bryan Avila [facility] Start: 02-16-2025 End: 02-16-2025 ambulatory Jak Moshe Peace Facility:[facility] Start: 02-16-2025 End: 02-16-2025 Patient encounter procedure Jak Peace [facility] Start: 02-16-2025 End: 02-16-2025 ambulatory MOLLY GREGORIO Facility:[facility] Start: 02-16-2025 End: 02-16-2025 Patient encounter procedure Jak Moshe Peace [facility] Start: 02-11-2025 End: 02-13-2025 Refill Tevin Carson DO Work Phone: [facility] Comment on above: Refill Request Start: 02-09-2025 End: 02-09-2025 ambulatory Fernandez Daniels Facility:[facility] Start: 02-09-2025 End: 02-09-2025 Patient encounter procedure MOLLY GREGORIO [facility] Start: 02-03-2025 End: 02-18-2025 Pre-admission assessment Babar Mayers [facility] Start: 02-03-2025 End: 02-03-2025 ambulatory MOLLY BERNARD Facility:[facility] Start: 01-27-2025 End: 01-27-2025 ambulatory Orlando Kate Facility:[facility] Start: 01-27-2025 End: 01-27-2025 Patient encounter procedure Orlando Kate [facility] Start: 01-24-2025 End: 01-24-2025 ambulatory Babar Mayers Facility:[facility] Start: 01-24-2025 End: 01-24-2025 Pain Management Babar Mayers [facility] Start: 01-19-2025 End: 01-20-2025 Pre-admission assessment Orlando Kate [facility] Start: 01-13-2025 End: 01-13-2025 ambulatory Orlando Kate Facility:[facility] Start: 01-13-2025 End: 01-13-2025 Patient encounter procedure Orlando Kate [facility] Start: 12-16-2024 End: 12-16-2024 Patient encounter procedure [facility] [place] Work Phone: Start: 12-16-2024 End: 12-16-2024 ambulatory NON STAFF [facility] Work Phone: Start: 12-14-2024 End: 12-15-2024 ambulatory David Zazueta Facility:[facility] Start: 12-14-2024 End: 12-15-2024 Patient encounter procedure David Zazueta [facility] Start: 12-12-2024 End: 12-12-2024 Patient encounter procedure [facility]-Lab [address] Work Phone: Start: 12-12-2024 End: 12-12-2024 ambulatory NON STAFF [facility] Work Phone: Start: 11-29-2024 End: 11-30-2024 ambulatory Jennie Durand Facility:[facility] Start: 11-28-2024 End: 11-28-2024 ambulatory Babar Mayers Facility:[facility] Start: 11-28-2024 End: 11-28-2024 Pain Management Babar Mayers [facility] Start: 11-18-2024 End: 11-18-2024 ambulatory KURT BALBUENA Facility:[facility] Mal[facility] mimi Start: 11-15-2024 End: 11-15-2024 ambulatory Orlando Kate Facility:[facility] Start: 11-15-2024 End: 11-15-2024 Patient encounter procedure Orlando Kate [facility] Start: 11-11-2024 End: 11-11-2024 ambulatory David Vaughnw Facility:[facility] Start: 11-11-2024 End: 11-11-2024 Patient encounter procedure David B Roderickw [facility] Start: 11-02-2024 End: 11-02-2024 Patient encounter procedure Jennie Durand [facility] Start: 11-02-2024 End: 01-11-2025 ambulatory Jennie Durand Facility:[facility] Start: 11-01-2024 End: 11-11-2024 Pre-admission assessment Jennie Durand [facility] Start: 10-18-2024 End: 10-18-2024 Emergency department patient visit Jose Correia [facility] Start: 10-17-2024 End: 10-17-2024 ambulatory [facility] [place] Start: 10-17-2024 End: 10-17-2024 Patient encounter procedure Melissa Gold MA [facility] [place] Comment on above: Population Health Na vigation Outreach (Esequielfallon Holguinrenaldojonathan [place]) Start: 10-14-2024 End: 10-14-2024 ambulatory KURT A ESHA Facility:[facility] Start: 09-30-2024 End: 09-30-2024 ambulatory KURT A ESHA [facility] Start: 09-27-2024 End: 09-27-2024 Bamboo flowsheet [...] 09-27-2024 ambulatory KURT A ESHA Facility:[facility] Start: 09-26-2024 End: 09-26-2024 ambulatory KURT A ESHA [facility] Start: 09-21-2024 End: 09-21-2024 Clinisync Result Encounter Christsamanta Larsen DO Work Phone: [facility] Unsolicited Start: 09-21-2024 End: 09-21-2024 Clinisync Result Encounter Christopher Suzie DO Work Phone: [facility] Unsolicited Start: 09-21-2024 End: 09-21-2024 Office outpatient visit 25 minutes Christsamanta Larsen DO Work Phone: [facility] Comment on above: Ataxia (Primary Dx); Myalgia Start: 09-21-2024 End: 09-21-2024 ambulatory CORBY LARSEN Not Available Start: 09-20-2024 End: 09-20-2024 Lab Drop off KURT BALBUENA [facility] Start: 09-20-2024 End: 09-20-2024 ambulatory KURT A ESHA [facility] Start: 09-16-2024 ambulatory KURT ESHA Facility :[facility] [place] Start: 09-15-2024 End: 09-15-2024 Emergency department patient visit [facility] Work Phone: Start: 09-15-2024 End: 09-15-2024 ambulatory TIFFANIE MARADIAGA Facility:[facility] mimi Start: 09-13-2024 End: 09-13-2024 Subsequent hospital visit by physician Clarita Smith Echo/Vasc Room [facility] Comment on above: Angina pectoris; Shortness of breath; Palpitations; Family history of ischemic heart disease; Primary hypertension Start: 09-13-2024 End: 09-13-2024 ambulatory [facility] Start: 09-04-2024 End: 09-05-2024 ambulatory Tevin Carson DO Work Phone: Family Medicine Comment on above: Blood work Start: 08-25-2024 End: 08-25-2024 ambulatory Mary Jo Trinidad RN Work Phone: [employer] Start: 08-25-2024 End: 08-25-2024 Patient encounter procedure Mary Jo Trinidad RN Work Phone: [employer] Comment on above: ACSu LAN RN ( ED Utilization Review per request of payor/) Start: 08-18-2024 End: 08-18-2024 Patient encounter procedure TIFFANIE MARADIAGA [facility] Start: 08-17-2024 End: 08-17-2024 Refill Tevin Carson DO Work Phone: Family Medicine Comment on above: Med Change Request Start: 08-08-2024 End: 08-08-2024 Office outpatient new 45 minutes Aleah Howard MD Work Phone: [facility] Comment on above: Angina pectoris; Shortness of breath; Palpitations; Family history of ischemic heart disease; Primary hypertension; Current smoker; BMI 29.0-29.9,adult Start: 08-08-2024 End: 08-08-2024 ambulatory [facility] Start: 07-26-2024 End: 07-26-2024 ambulatory TEVIN CARSON Facility:[facility] Start: 07-25-2024 End: 07-25-2024 ambulatory TEVIN HENRIQUEZE Facility:[facility] Start: 07-25-2024 End: 07-25-2024 Office outpatient visit 25 minutes Tevin Carson DO Work Phone: Family Medicine Comment on above: Bipolar affective di sorder in remission (HCC) (Primary Dx); Borderline personality disorder (HCC); Anxiety disorder, unspecified type; Chest pain, unspecified type; Iron deficiency anemia, unspecified iron deficiency anemia type Start: 07-22-2024 End: 07-22-2024 ambulatory Tevin Carson DO Work Phone: [facility] Comment on above: Depression and anxie ty Anxiety; Depression Start: 07-13-2024 End: 07-13-2024 Telephone encounter Patricia Tate RN Mammography Comment on above: Results; Appointment Start: 07-11-2024 End: 07-11-2024 ambulatory ABI ASIF Facility:[facility] Start: 07-11-2024 End: 07-11-2024 Subsequent hospital visit by physician Procedure Mammo [facility] Comment on above: Abnormal mammogram o f left breast [R92.8] Start: 07-04-2024 End: 07-04-2024 ambulatory TEVIN YAMILETH Facility:[facility] Start: 07-04-2024 End: 07-04-2024 Patient encounter procedure Fatuma Tyler APRN.PYRIDINE RECOVERY OPERATOR Work Phone: [facility] Comment on [...] breast [N63.21] Start: 07-03-2024 Non-patient / Non-visit [facility] Work Phone: Start: 07-01-2024 End: 07-01-2024 ambulatory TEVIN CARSON Facility:[facility] Start: 07-01-2024 End: 07-01-2024 Office outpatient visit 25 minutes Tevin Carson DO Work Phone: Family Medicine Comment on above: Chest pain, unspecif ied type (Primary Dx); Palpitations; Bipolar affective disorder in remission (HCC); History of substance abuse (HCC); Borderline personality disorder (HCC); Serum calcium elevated Start: 06-30-2024 End: 07-01-2024 Telephone encounter Fatuma Tyler APRN.PYRIDINE RECOVERY OPERATOR Work Phone: [facility] Comment on above: Appointment Start: 05-30-2024 End: 05-30-2024 ambulatory Lenora Yee RN Work Phone: [employer] Management Comment on above: CARMELINA LAN RN ( ED Utilization review per request of payer) Start: 04-26-2024 ambulatory Elia mcdowell DO Work Phone: Family Medicine Start: 03-08-2024 End: 03-08-2024 Emergency department patient visit Alexis Shukla [facility] Start: 03-08-2024 End: 03-08-2024 Subsequent hospital visit by physician Mri [facility] (Lg Bore/1.5t) Radiology MRI Comment on above: 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 ] Start: 03-08-2024 End: 03-08-2024 ambulatory LEONELA Fallon CAVAZOSSATHISH Facility:[facility] Start: 03-08-2024 End: 03-08-2024 Patient encounter procedure Eliakeshav Baires DO Work Phone: Family Medicine Comment [...] encounter status Elia Baires DO Work Phone: [facility] Work Phone: Start: 02-25-2024 End: 02-25-2024 ambulatory ELIA BAIRES Facility:[facility] Start: 01-13-2024 End: 01-13-2024 ambulatory [facility] Start: 01-05-2024 Telephone encounter Elia Cardenas Rajani liane DO Work Phone: Family Medicine Start: 01-04-2024 End: 01-04-2024 ambulatory ELIA BAIRES Facility:[facility] Start: 01-04-2024 End: 01-04-2024 Patient encounter procedure Elia Baires DO Work Phone: Family Medicine Comment on above: Panic disorder (Prim masoud Dx); Borderline personality disorder (HCC); Bipolar affective disorder in remission (HCC); Chronic alcoholism in remission (HCC); Routine health maintenance Start: 01-04-2024 End: 01-04-2024 Patient encounter status Elia Baires DO Work Phone: [facility] Start: 12-31-2023 End: 12-31-2023 Emergency department patient visit DO Jennie Durand Work Phone: [facility] Work Phone: Start: 12-25-2023 ambulatory SELF REFERRAL Facility: [facility] Start: 12-24-2023 End: 12-24-2023 Emergency department patient visit DO Jennie Durand Work Phone: [facility] Work Phone: Start: 2023 ambulatory Otto Larsen Facility:[facility] Start: 12-10-2023 End: 12-10-2023 Emergency department patient visit DO Jennie Durand Work Phone: [facility] Work Phone: Start: 12-09-2023 End: 12-09-2023 ambulatory Jennie Durand Facility:[facility] Start: 12-09-2023 End: 12-09-2023 Patient encounter procedure Jennie Durand [facility] Start: 10-23-2023 End: 10-26-2023 [facility] Start: 10-12-2023 End: 10-15-2023 ambulatory [facility] Start: 09-18-2023 End: 09-18-2023 Subsequent hospital visit by physician Gamaliel Vickers DO Work Phone: [facility] Start: 08-31-2023 End: 09-01-2023 ambulatory LEONELA AGUIRRE Facility:[facility] Start: 08-28-2023 End: 08-28-2023 ambulatory Imad Asaad Other [email or web address] Other Start: 08-28-2023 Telephone encounter Imruth Prado [employer] Start: 08-18-2023 End: 08-21-2023 [facility]ulatory [facility] Start: 08-15-2023 End: 08-15-2023 Emergency department patient visit DO Jennie Durand Work Phone: [facility]-Emergency [facility] Work Phone: Start: 08-14-2023 End: 08-14-2023 Emergency department patient visit DO Jennie Durand Work Phone: [facility]-Emergency [facility] Work Phone: Start: 08-13-2023 End: 08-13-2023 ambulatory Imad Asaad Other [email or web address] Other Start: 08-13-2023 Office outpatient ne w 45 minutes Imad Asaad [facility] Start: 08-12-2023 End: 08-15-2023 ambulatory [facility] Start: 07-08-2023 End: 07-08-2023 ambulatory Aniafroylan Javed Other [email or web address] Other Start: 07-08-2023 Office outpatient ne w 20 minutes Ania Tegan [facility] Start: 07-03-2023 End: 07-03-2023 Emergency department patient visit DO Jennie Durand Work Phone: [facility]-Emergency [facility] Work Phone: Start: 07-02-2023 End: 07-02-2023 Emergency department patient visit Bakari Chester [facility] Start: 06-10-2023 End: 06-10-2023 ambulatory EILEEN ALVAREZ Facility:[facility] Start: 06-09-2023 End: 06-09-2023 Emergency department patient visit Alexis Shukla Facility:[facility] Start: 06-03-2023 Refill Eileen Alvarez MD Work Phone: Neurology Comment on above: Refill Request Start: 03-19-2023 End: 03-19-2023 ambulatory BIOMEDICAL FIELD SERVICE ENGINEER GANESH CORDERO Facility:[facility] Start: 03-19-2023 End: 03-19-2023 Patient encounter procedure GANESH CORDERO [facility] Start: 01-29-2023 End: 01-29-2023 Subsequent hospital visit by physician Marixa [facility] Vicky (1.5t) Work Phone: Radiology Comment on above: 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] Start: 01-15-2023 End: 01-15-2023 Emergency department patient visit Bakari Chester [facility] Start: 01-02-2023 End: 01-02-2023 Patient encounter procedure Nakia Mcqueen [facility] Start: 12-12-2022 Refill Eileen Alvarez MD Work Phone: Neurology Comment on above: Refill Request Start: 12-05-2022 End: 12-05-2022 Admission to same day surgery center Gal Das [facility] Start: 11-21-2022 End: 11-21-2022 Patient encounter procedure Gal Das [facility] Start: 11-20-2022 End: 11-20-2022 ambulatory EILEEN ALVAREZ Facility:[facility] Start: 11-20-2022 End: 11-20-2022 Patient encounter procedure Eileen Alvarez MD Work Phone: Neurology Comment on above: Idiopathic intracran ial hypertension (Primary Dx); Depression, unspecified depression type; Primary hypertension; Hx of gastric bypass; H/O foot surgery Start: 11-03-2022 End: 11-03-2022 Patient encounter procedure Nakia Mcqueen [facility] Start: 10-30-2022 End: 10-30-2022 ambulatory STEFANIE SINGH . Facility:[facility] Start: 10-23-2022 End: 10-23-2022 Lab Drop off Gal Jeni Thiago [facility] Start: 10-14-2022 End: 10-14-2022 Patient encounter procedure Rita Loja [facility] Start: 09-24-2022 End: 09-24-2022 Patient encounter procedure Aimee Keshav Walker [facility] Start: 08-22-2022 End: 08-22-2022 Patient encounter procedure Rahul Mia Salinas [facility] Start: 08-19-2022 End: 08-19-2022 ambulatory DO Jennie Durand Work Phone: [facility] Work Phone: Start: 08-19-2022 End: 08-19-2022 Patient encounter procedure DO Jennie Durand Work Phone[facility] Start: 08-18-2022 End: 08-18-2022 ambulatory RAMSES MARTINEZ . Facility:[facility] Start: 08-18-2022 End: 08-18-2022 Emergency department patient visit Alexis Shukla [facility] Start: 08-16-2022 End: 08-16-[address] NEW DREW . Facility:[facility] Start: 08-12-2022 ambulatory Facility:[id number] Start: 08-11-2022 End: 08-12-2022 Evaluation and management of inpatient DO Jennie Durand Work Phone: [facility] Start: 08-11-2022 End: 08-12-2022 observation encounter DO Jennie Durand Work Phone: [facility] Work Phone: Start: 08-11-2022 End: 08-11-[address] WEI PHAM Facility:[facility] Start: 08-08-2022 End: 08-08-2022 Emergency department patient visit Bakari Chester [facility] Start: 07-21-2022 End: 07-21-2022 Patient encounter procedure Aimee Walker [facility] Start: 07-19-2022 End: 07-19-[address] DOCTOR CAMARILLO Facility:[facility] Start: 07-18-2022 Telephone encounter Eduin Leiva) [facility] Comment on above: Appointment Start: 06-12-2022 End: 06-12-[address] CAROLYNE RALPH Facility:[facility] Start: 06-10-2022 End: 06-10-2022 Patient encounter procedure Alexis Rivers [facility] Start: 05-30-2022 End: 05-30-2022 ambulatory GABRIELA CAMARGO Facility:[facility] Start: 05-13-2022 End: 05-13-2022 Patient encounter procedure Alexis Rivers [facility] [place] Start: 04-22-2022 End: 04-22-2022 Patient encounter procedure Aimee Walker [facility] Start: 04-21-2022 End: 04-21-2022 Patient encounter procedure Aimee Walker [facility] Start: 04-20-2022 End: 04-20-2022 Emergency department patient visit Jose Correia [facility] Start: 04-07-2022 End: 04-07-[address] CLINTON SANCHEZ . Facility:[facility] Start: 04-03-2022 End: 04-03-2022 Emergency department patient visit Larry Baker [facility] Start: 04-03-2022 End: 04-03-2022 Well adult monitoring check done Larry Baker [facility] Start: 02-12-2022 End: 02-12-2022 Patient encounter procedure Amee Gonzalez PA-C Work Phone: Otolaryngology Comment on above: Burning tongue (Prim masoud Dx); Irritation of oral cavity Start: 02-08-2022 End: 02-08-2022 ambulatory STEFANIE SINGH . Facility:[facility] Start: 02-06-2022 End: 02-06-2022 Patient encounter procedure Aimee Walker [facility] Start: 01-30-2022 End: 01-30-2022 ambulatory GABRIELA CAMARGO Facility:[facility] Start: 01-29-2022 End: 01-29-2022 Patient encounter procedure Aimee Walker [facility] Start: 01-27-2022 ambulatory Eduin Mckee MD Work Phone: Plastic Surgery Comment on above: questions Start: 01-10-2022 Telephone encounter Eduin marx MD Work Phone: Plastic Surgery Comment on above: Patient Question; Ap pointment Start: 01-09-2022 End: 01-09-2022 Patient encounter procedure Aimee Walker [facility] Start: 12-27-2021 Telephone encounter Eduin marx MD Work Phone: Plastic Surgery Comment on above: Orders Scheduling Start: 11-16-2021 End: 11-17-[address] WILEY HELM Facility:[facility] Start: 02-04-2021 End: 02-06-2021 Subsequent hospital visit by physician Chaitanya Cat Scan Room [facility] CT Scan Comment on above: Omental infarction ( HCC) Start: 01-30-2021 End: 02-01-2021 Evaluation and management of inpatient Berry Lawson MD Work Phone: [facility] 2C Ortho/Med Surg Comment on above: Surgery, elective (P rimary Dx); Omental infarction (HCC) Start: 01-30-2021 End: 01-30-2021 Emergency department patient visit David Nash MD Work Phone: [facility] ED Comment on above: Generalized abdomina [...] Start: 01-03-2021 End: 01-04-2021 ambulatory JENNIE DURAND [facility] yvon Start: 01-03-2021 End: 01-03-2021 Patient encounter status St[facility] Schedule [facility] Covid Scre ening Start: 01-03-2021 End: 01-03-2021 Subsequent hospital visit by physician Edgardo Mcclendon Screening Schedule [facility] Covid Screening Comment on above: Preop testing (Prima ry Dx) Start: 12-24-2020 End: 12-28-2020 Subsequent hospital visit by physician Christiane Pat Xr [facility] Radiology Comment on above: Arrived Start: 11-01-2020 End: 11-03-2020 Subsequent hospital visit by physician Chaitanya Gen Radiologist [facility] Radiology Comment on above: Gastroesophageal ref lux disease with esophagitis without hemorrhage Start: 10-26-2020 End: 10-26-2020 Subsequent hospital visit by physician Memo Covid Screening Schedule [facility] Covid Screening Comment on above: Preoperative testing Start: 09-28-2020 End: 09-28-2020 Subsequent hospital visit by physician Gamaliel Vickers Work Phone: [facility] [place] Start: 09-24-2020 End: 09-28-2020 Subsequent hospital visit by physician [facility] Hakan19 Pat Screening Schedule [facility] PRE ADMIT Comment on above: Preoperative testing Start: 11-01-2015 Patient encounter procedure LINDY COTE Facility:[facility] Procedures Date Procedure Procedure Detail Performing Clinician Start: 05-30-2025 Lumpectomy of left breast Jennie Durand DO Work Phone: Start: 04-26-2025 Mammography of left breast Lindy Keen APRN Work Phone: Start: 04-26-2025 Ultrasonography of l eft breast Lindy Keen APRN Work Phone: Start: 04-09-2025 Iadna streptococcus group a amplified probe tq Shazia L Gosia BIOMEDICAL FIELD SERVICE ENGINEER Work Phone: Start: 03-03-2025 Injection of facet j oint using fluoroscopic guidance Babar Mayers Comment on above: L4-S1 Start: 01-24-2025 Injection of facet j oint using fluoroscopic guidance [employer] Start: 12-16-2024 MRI of head Start: 11-28-2024 Injection of nerve r oot of lumbar spine using fluoroscopic guidance [facility] [employer] Comment on above: left L5/S1 TFESI Start: [...] Blood count complete auto&auto difrntl wbc Ruiz Wisam DO Work Phone: Start: 01-31-2021 BASIC METABOLIC [...] w/byp tian-en-y limb <150 cm Gamaliel Vickers [employer] Work Phone: Start: 01-07-2021 Urine test visual color cmprsn meths Gamaliel Vickers [employer] Work Phone: Start: 12-24-2020 Assay of nicotine Enmanuel Gastelum Tagito Work Phone: Start: 12-24-2020 Basic metabolic pane l calcium total Gamaliel Vickers DO Work Phone: Start: 12-24-2020 Radiologic exam ches t 2 views Gamaliel Vickers Work Phone: Start: 12-24-2020 Ecg routine ecg w/le ast 12 lds trcg only w/o i&r Gamaliel Vickers [employer] Work Phone: Start: 12-24-2020 EKG REPORT Hpf [...] puncture to isreal perez intracranial pressure Rahul Salinas Plan of Treatment Date Care Activity Detail Author Start: 2038 Zoster Vaccines (1 of 2) Zoster Vaccines (1 of 2) [facility] Start: 02-24-2027 Diabetes mellitus screening Diabetes Screening [facility] Start: 07-25-2025 Annual PCP Team Chronic Disease Visit Annual PCP Team Chronic Disease Visit [facility] Start: 07-25-2025 BP Controlled (<130/80) BP Controlled (<130/80) [facility] Start: 07-01-2025 Annual PCP Team Chronic Disease Visit Annual PCP Team Chronic Disease Visit [facility] Start: 07-01-2025 BP Controlled (<130/80) BP Controlled (<130/80) [facility] Start: 06-08-2025 End: 06-08-2025 Patient encounter procedure 06/08/2025 10:15 AM EDT Office Visit [facility] [address] [facility] [address] [place] [phone] Aaliyah Zamudio DO [address] [facility] [address] [place] [address] [facility] Start: 05-30-2025 Mammography of left breast specimen MM surgical specimen LT [facility] Start: 05-30-2025 MG Breast specimen - left Views [facility] Start: 05-30-2025 [facility] Start: 05-30-2025 [facility] Start: 05-15-2025 Influenza vaccination [facility] Start: 05-01-2025 End: 05-01-2025 Patient encounter procedure 05/01/2025 2:15 PM EDT Office Visit [facility] [address] [place] [phone] Aaliyah Zamudio, DO [address] [facility] [place] [address] [facility] Start: 04-13-2025 End: 06-13-2026 DBT Breast - left diagnostic Left diagnostic mammogram with tomosynthesis Imaging Routine Pseudoangiomatous stromal hyperplasia of breast Hypertrophy of breast Expected: 04/13/2025, Expires: 06/13/2026 [facility] Work Phone: Comment on above: Expected: 04/13/2025, Expires: Start: 04-13-2025 End: 06-13-2026 US Breast - left limited Left breast US limited Imaging Routine Pseudoangiomatous stromal hyperplasia of breast Hypertrophy of breast Expected: 04/13/2025, Expires: 06/13/2026 [facility] Comment on above: Expected: 04/13/2025, Expires: Start: 04-13-2025 End: 04-13-2025 Patient encounter procedure 04/13/2025 10:[address] [facility] [address] [place] [phone] Aaliyah Zamudio, DO [address] [place] [address] [facility] Start: 03-08-2025 Annual PCP Team Chronic Disease Visit Annual PCP Team Chronic Disease Visit [facility] Start: 03-08-2025 BP Controlled (<130/80) BP Controlled (<130/80) [facility] inic Start: 03-08-2025 Urine microalbumin profile DTaP,Tdap,Td Vaccine (1 - Tdap) [facility] Comment on above: Postponed from 12/18/2007 (Declined at t his time) Start: 01-03-2025 Annual PCP Team Chronic Disease Visit Annual PCP Team Chronic Disease Visit [facility] Start: 12-12-2024 Aldolase measurement [facility] Start: 12-12-2024 Antibody to Scl-70 measurement [facility] Start: 12-12-2024 Hemolytic complement CH50 level [facility] Start: 12-12-2024 COMMERCIAL ESTIMATOR antibody measurement [facility] Start: 12-12-2024 [facility] Start: 10-20-2024 End: 10-20-2024 Patient encounter procedure 10/20/2024 8:40 AM EST Office Visit CYNDI LOVEEVUE [address] [place] [phone] Mague Fine NP [address] [place] [address] [facility]NDI JUDD Start: 10-04-2024 End: 10-04-2024 Patient encounter procedure 10/04/2024 12:40 PM EST Appointment Radiology MRI [address] [place], [place] [id number] MRI BREAST WO/W IVCON Radiology MRI Comment on above: MRI BREAST WO/W IVCON Start: 09-27-2024 End: 09-27-2024 Patient encounter procedure RUTH Oquendo [facility] Comment on above: Arrived Start: 09-21-2024 End: 09-21-2025 EMG 2 Extremities EMG 2 Extremities Neurology Routine Myalgia Expected: 09/21/2024, Expires: 09/21/2025 [facility] Work Phone: Comment on above: Expected: 09/21/2024, Expires: Start: 09-21-2024 End: 09-21-2025 MR Brain WO and W contrast IV MR brain w and wo contrast routine Imaging Routine Ataxia Expected: 09/21/2024, Expires: 09/21/2025 [facility] Comment on above: Expected: 09/21/2024, Expires: [...] procedure 09/19/2024 3:00 PM EST Office Visit [facility] [address] [facility] [address] [place] [address] Aleah Howard MD [address] [facility] [address] [place] [address] [facility] Start: 09-13-2024 End: 09-13-2024 Patient encounter [facility] Comment on above: ER Follow up Start: 08-24-2024 End: 08-24-2024 ambulatory 08/24/2024 11:20 AM EST [facility] [address] [place] [address] [place] [address] [place] [address] Return in about 4 weeks (around 08/22/2024) Family Medicine Comment on above: Return in about 4 weeks (around ) Start: 08-23-2024 End: 08-23-2024 [facility] encounter [facility] Start: 08-08-2024 End: 08-08-2025 NM Heart Perfusion W stress and W radionuclide IV Nuclear Stress Test Cardiac Nuclear Medicine Routine Angina pectoris Shortness of breath Palpitations Family history of ischemic heart disease Primary hypertension Expected: 08/08/2024 (Approximate), Expires: 08/08/2025 [facility] Service Area Work Phone: Comment on above: Expected: 08/08/2024 (Approximate), Expi res: 08/08/2025 Start: 08-08-2024 End: 08-08-2026 US Heart Transthoracic Transthoracic Echo Complete Echocardiography Routine Angina pectoris Shortness of breath Palpitations Family history of ischemic heart disease Primary hypertension Expected: 08/08/2024 (Approximate), Expires: 08/08/2026 [facility] Work Phone: Comment on above: Expected: 08/08/2024 (Approximate), Expi res: 08/08/2026 Start: 08-05-2024 End: 08-05-2024 ambulatory [facility] Comment on above: Fhx of pancreatic cancer, Phx of pancrea tic mass Action taken: Marked in OnBase for Schedulers Start: 07-29-2024 End: 07-29-2024 Patient encounter procedure 07/29/2024 2:40 PM EST Office Visit Family Medicine [address] [place] [address] [place] [address] [place], [place] [phone] Return in about 4 weeks (around 07/29/2024) Family Medicine Comment on above: Return in about 4 weeks (around 07/29/20) Start: 07-27-2024 End: 07-27-2024 Patient encounter procedure 07/27/2024 11:30 AM EST Office Visit [facility] [address] [facility] [phone] Kiera Gilmore DO [address] [place] [address] Teresa David, 07/27/24, 1130am, ty per email Breast [facility] Comment on above: Teresa David, 07/27/24, 1130am, ty per email Start: 07-26-2024 End: 07-26-2024 ambulatory 07/26/2024 8:45 AM EST Results Only [facility] [address] [facility] [place] [address] Iron deficiency anemia, unspecified iron deficiency anemia type [D50.9] [facility] Comment on above: Iron deficiency anemia, unspecified iron deficiency anemia type [D50.9] Start: 07-25-2024 End: 07-25-2024 Patient encounter procedure 07/25/2024 3:00 PM EST Office Visit Family Medicine [address] [place] [address] [place] [address] [place], [place] [phone] H f/u Family Medicine Comment on above: H f/u Start: 07-25-2024 End: 10-24-2024 CBC W Auto Differential panel - Blood COMPLETE BLOOD COUNT AND DIFFERENTIAL Lab Routine Iron deficiency anemia, unspecified iron deficiency anemia type Expected: 07/25/2024, Expires: 10/24/2024 [facility] Comment on above: Expected: 07/25/2024, Expires: Start: 07-25-2024 End: 10-24-2024 Ferritin [Mass/volume] in Serum or Plasma FERRITIN Lab Routine Iron deficiency anemia, unspecified iron deficiency anemia type Expected: 07/25/2024, Expires: 10/24/2024 [facility] Work Phone: Comment on above: Expected: 07/25/2024, Expires: Start: 07-25-2024 End: 10-24-2024 Iron and Iron binding capacity panel - Serum or Plasma IRON AND TIBC Lab Routine Iron deficiency anemia, unspecified iron deficiency anemia type Expected: 07/25/2024, Expires: 10/24/2024 [facility] Comment on above: Expected: 07/25/2024, Expires: Start: 07-11-2024 End: 07-11-2024 Patient encounter procedure 07/11/2024 8:30 AM EDT Appointment Mammography [address] [place] [address] lt breast us core bx Mammography Comment on above: lt breast us core bx Start: 07-04-2024 End: 07-04-2024 Patient encounter procedure [facility] Comment on above: 11:30A IMAGING; Breast lump with pain x 1 yr; imaging done at [facility](pt hand caring images); Bx recommended by PCP; blood nipple discharge- spontaneous- last noticed 8 months ago Breast lump with suraj n x 1 yr; imaging done at [facility](pt hand caring images); Bx recommended by PCP; blood nipple discharge- spontaneous- last noticed 8 months ago Start: 07-01-2024 End: 09-30-2024 25-hydroxyvitamin D3 [Mass/volume] in Serum or Plasma VITAMIN D 25 HYDROXY Lab Routine Serum calcium elevated Expected: 07/01/2024, Expires: 09/30/2024 [facility] Comment on above: Expected: 07/01/2024, Expires: Start: 07-01-2024 End: 09-30-2024 Comprehensive metabolic 2000 panel - Serum or Plasma COMPREHENSIVE METABOLIC PANEL Lab Routine Serum calcium elevated Expected: 07/01/2024, Expires: 09/30/2024 [facility] Comment on above: Expected: 07/01/2024, Expires: Start: 07-01-2024 End: 09-30-2024 Parathyrin.intact [Mass/volume] in Serum or Plasma PTH INTACT Lab Routine Serum calcium elevated Expected: 07/01/2024, Expires: 09/30/2024 [facility] Comment on above: Expected: 07/01/2024, Expires: Start: 07-01-2024 End: 07-01-2024 Patient encounter procedure 07/01/2024 11:00 AM EDT Office Visit Family Medicine [address] [place] [address] [place] [address] [place] [address] est care. Updated PCP per navigation rules. Family Medicine Comment on above: est care. Updated PCP per navigation rul es. Start: 05-31-2024 End: 05-31-2024 Patient encounter procedure 05/31/2024 11:00 AM EDT Office Visit Family Medicine [address] [place] [address] Lisha Bianchi, FIELD SUPPORT TECHNICIAN.PYRIDINE RECOVERY OPERATOR [address] [place] [address] ED follow up Family Medicine Comment on above: ED follow up Start: 05-24-2024 End: 05-24-2024 Patient encounter procedure 05/24/2024 11:15 AM EDT Office Visit Endocrinology [address] [place] [phone] Austin Leon, FIELD SUPPORT TECHNICIAN.PYRIDINE RECOVERY OPERATOR [address] [place] [address] Class 1 obesity due to excess calories without serious comorbidity with body ma Endocrinology Comment on above: Class 1 obesity due to excess calories w ithout serious comorbidity with body ma Start: 05-15-2024 COVID-19 Vaccine ( season) COVID-19 Vaccine ( season) [facility] Start: 05-15-2024 COVID-19 Vaccine ( season) COVID-19 Vaccine ( season) [facility] Start: 05-15-2024 Influenza vaccination [facility] Start: 03-01-2024 End: 03-01-2024 Patient encounter procedure 03/01/2024 11:20 AM EDT Appointment Radiology [address] [place] [address] MRI Panc/Tanmay Wo/[facility] Comment on above: MRI Panc/Tanmay Wo/W [facility] Start: 01-06-2024 End: 01-06-2024 ambulatory 01/06/2024 8:30 AM EDT Results Only [facility] [address] [place] [address] [place] [address] [facility] Start: 01-04-2024 End: 04-04-2024 CBC panel - Blood by Automated count COMPLETE BLOOD COUNT Lab Routine Routine health maintenance Expected: 01/04/2024, Expires: 04/04/2024 [facility] Work Phone: Comment on above: Expected: 01/04/2024, Expires: Start: 01-04-2024 End: 04-04-2024 Comprehensive metabolic 2000 panel - Serum or Plasma COMPREHENSIVE METABOLIC PANEL Lab Routine Routine health maintenance Expected: 01/04/2024, Expires: 04/04/2024 [facility] Comment on above: Expected: 01/04/2024, Expires: Start: 01-04-2024 End: 04-04-2024 Hemoglobin A1c in Blood HEMOGLOBIN A1C Lab Routine Routine health maintenance Expected: 01/04/2024, Expires: 04/04/2024 [facility] Comment on above: Expected: 01/04/2024, Expires: Start: 01-04-2024 End: 04-04-2024 Hepatitis C virus Ab [Presence] in Serum HEPATITIS C ANTIBODY IA WITH CONFIRMATION Lab Routine Routine health maintenance Expected: 01/04/2024, Expires: 04/04/2024 [facility] Comment on above: Expected: 01/04/2024, Expires: Start: 01-04-2024 End: 04-04-2024 HIV 1+2 Ab [Presence] in Serum or Plasma by Immunoassay HIV 1/2 COMBO WITH REFLEX TO DIFFERENTIATION Lab Routine Routine health maintenance Expected: 01/04/2024, Expires: 04/04/2024 [facility] Comment on above: Expected: 01/04/2024, Expires: Start: 01-04-2024 End: 04-04-2024 Lipid 1996 panel - Serum or Plasma LIPID PANEL BASIC Lab Routine Routine health maintenance Expected: 01/04/2024, Expires: 04/04/2024 [facility] Comment on above: Expected: 01/04/2024, Expires: Start: 12-10-2023 [facility] Start: 09-18-2023 End: 09-18-2023 Egd transoral biopsy single/multiple EGD BIOPSY Gastroesophageal reflux disease, unspecified whether esophagitis present Obesity (BMI 30-39.9) 09/18/2023 8:14 AM EST [facility] Start: 05-15-2023 COVID-19 Vaccine () COVID-19 Vaccine () [facility] Start: 05-15-2023 Influenza vaccination Influenza Vaccine (#1) [facility] Start: 04-14-2023 Influenza vaccination Flu vaccine (#1) [facility] Start: 08-19-2022 Cerebrospinal fluid culture [facility] Start: 08-19-2022 End: 08-19-2022 [facility] Start: 08-12-2022 [facility] Start: 08-12-2022 Glucose [Mass/volume] in Cerebral spinal fluid [facility] Start: 08-12-2022 Protein [Mass/volume] in Cerebral spinal fluid [facility] Start: 08-12-2022 [facility] Start: 08-11-2022 Hospital admission [facility] Start: 08-11-2022 Referral to neurologist [facility] Start: 08-11-2022 [facility] Start: 05-15-2022 Influenza vaccination [facility] Start: 09-29-2021 COVID-19 VACCINE (3 - Booster for Pfizer series) COVID-19 VACCINE (3 - Booster for Pfizer series) [facility] Start: 09-14-2021 DEPRESSION ASSESSMENT DEPRESSION ASSESSMENT [facility] Start: 06-24-2021 COVID-19 VACCINE (3 - Booster for Pfizer series) COVID-19 VACCINE (3 - Booster for Pfizer series) [facility] Start: 06-24-2021 Covid-19 Vaccine (3 - Pfizer series) Covid-19 Vaccine (3 - Pfizer series) [facility] Start: 03-06-2021 End: 03-06-2021 Patient encounter procedure 03/06/2021 Office Visit Gamaliel Mistry DO [address] [phone] Cyndie Vick Invasive Bariatric Surg Start: 02-20-2021 End: 02-20-2021 Patient encounter procedure 02/20/2021 Office Visit Bariatrics Gamaliel Vickers DO [address] [place] [address] [facility] Start: 01-18-2021 End: 01-18-2021 Office Visit 01/18/2021 Office Visit Bariatrics Gamaliel Vickers DO [address] [place] [id number] [facility] Invasive Bariatric Surg Start: 01-07-2021 End: 01-07-2021 Hospital Encounter [facility] OR Comment on above: XI LAPAROSCOPIC ROBOTIC GASTRIC BYPASS R OUX-EN-Y, LIVER BIOPSY, EGD- GI UNIT SCHEDULED. Start: 01-03-2021 End: 01-03-2021 Office Visit [facility] Invasive Bariatric Surg Comment on above: Arrived Start: 12-31-2020 End: 12-31-2021 COVID-19 COVID-19 Lab Routine Preop testing Expected: 12/31/2020, Expires: 12/31/2021 [facility] Work Phone: Comment on above: Expected: 12/31/2020, Expires: Start: 11-21-2020 End: 11-21-2020 Office Visit 11/21/2020 Office Visit Bariatrics Ganesh Cordero, FIELD SUPPORT TECHNICIAN - PYRIDINE RECOVERY OPERATOR [address] [place] [phone] [facility] Start: 11-01-2020 End: 11-01-2020 Appointment 11/01/2020 Appointment Radiology Radiologist, Chaitanya Jett [facility] Radiology Start: 10-24-2020 End: 10-24-2020 Office Visit [facility] Start: 09-26-2020 Annual Wellness Visit (AWV) Annual Wellness Visit (AWV) [facility]- [place], [place] Start: 2018 HPV TESTING HPV TESTING [facility] Start: 2018 Screening for malignant neoplasm of cervix [facility] Start: 06-10-2016 Screening for malignant neoplasm of cervix [facility] Start: 2010 DTaP/Tdap/Td Vaccines (1 - Tdap) DTaP/Tdap/Td Vaccines (1 - Tdap) [facility] Start: 2009 PAP TESTING PAP TESTING [facility] Start: 2009 Screening for malignant neoplasm of cervix [facility] Start: 12-18-2007 DTaP/Tdap/Td vaccine (1 - Tdap) DTaP/Tdap/Td vaccine (1 - Tdap) [facility] Start: 12-18-2007 Pneumococcal vaccination Pneumococcal Vaccine (1 of 2 - PCV) [facility] Start: 12-18-2007 Pneumococcal Vaccine: Pediatrics and At-Risk Adult Patients (1 of 2 - PCV) Pneumococcal Vaccine: Pediatrics and At-Risk Adult Patients (1 of 2 - PCV) [facility] Start: 12-18-2007 Urine microalbumin profile [facility] Start: 2006 ANNUAL PCP TEAM CHRONIC DISEASE VISIT ANNUAL PCP TEAM CHRONIC DISEASE VISIT [facility] Start: 2006 BP CONTROLLED (<130/80) BP CONTROLLED (<130/80) [facility] Start: 2006 HEPATITIS C SCREENING HEPATITIS C SCREENING [facility] Start: 2006 Hepatitis C screening [facility] Start: 2006 HIV SCREENING HIV SCREENING [facility] Start: 2006 HIV screening HIV Screening [facility] Start: 2004 COVID-19 Vaccine (1) COVID-19 Vaccine (1) [employer] Phone: Start: 12-18-2003 HIV screening HIV screen [facility] Start: 2001 Varicella vaccination Varicella Vaccines (1 of 2 - 13+ 2-dose series) [facility] Start: 2000 Adult depression screening assessment DEPRESSION SCREENING [facility] Start: 2000 COVID-19 Vaccine (1) COVID-19 Vaccine (1) [employer] Phone: Start: 2000 Depression Monitoring Depression Monitoring [facility] Start: 12-10-2000 Hepatitis B Vaccine (2 of 3 - 3-dose series) Hepatitis B Vaccine (2 of 3 - 3-dose series) [facility] Start: 12-10-2000 Hepatitis B Vaccines (2 of 3 - 3-dose series) Hepatitis B Vaccines (2 of 3 - 3-dose series) [facility] Start: 1994 PNEUMOCOCCAL (1 - PCV) PNEUMOCOCCAL (1 - PCV) [facility] Start: 1994 Pneumococcal 0-64 years Vaccine (1 - PCV) Pneumococcal 0-64 years Vaccine (1 - PCV) [facility] Start: 1994 Pneumococcal vaccination [facility] Start: 1994 Pneumococcal Vaccine: Pediatrics (0 to 5 Years) and At-Risk Patients (6 to 64 Years) (1 of 2 - PCV) Pneumococcal Vaccine: Pediatrics (0 to 5 Years) and At-Risk Patients (6 to 64 Years) (1 of 2 - PCV) [facility] Start: 1989 Varicella vaccine (1 of 2 - 2-dose childhood series) Varicella vaccine (1 of 2 - 2-dose childhood series) [facility] Start: 1988 HEPATITIS B (1 of 3 - 3-dose series) HEPATITIS B (1 of 3 - 3-dose series) [facility] Start: 1988 Hepatitis B Vaccine (1 of 3 - 3-dose series) Hepatitis B Vaccine (1 of 3 - 3-dose series) [facility] Start: 1988 Hepatitis C screening Hepatitis C screen [place] Start: 1988 HIV screening HIV Screening [facility] Start: 1988 Lipid panel Lipid Panel [facility] Start: 1988 Medicare Annual Wellness (AWV) Medicare Annual Wellness (AWV) [facility] Start: 1988 Medicare Annual Wellness Visit Medicare Annual Wellness Visit (AWV) [facility] 24 hour urine measurement [facility] Adenosine monophosphate.cyclic [Moles/volume] in Serum or [facility] Albumin [Mass/volume ] in Serum or [facility] Albumin/Globulin ratio [facility] Bacteria identified in Unspecified specimen by Aerobe culture [facility] Work Phone: Bacteria identified in Unspecified specimen by Anaerobe culture [facility] Work Phone: Basic Metabolic Pane l w/ Reflex to MG Basic Metabolic Panel w/ Reflex to MG Lab Routine Daily until discontinued starting 02/01/2021, 1 completed [employer] Work Phone: Comment on above: Daily until discontinued starting 2020, 1 completed Beta 2 glycoprotein 1 IgG Ab [Units/volume] in [facility] Beta 2 glycoprotein 1 IgM Ab [Units/volume] in [facility] End: 09-18-2023 Blood glucose - POCT Blood glucose - POCT Point of Care Testing Routine One Time for 1 Occurrences starting 09/18/2023 until 09/18/2023 WALKER [facility]ARA [employer] Comment on above: One Time for 1 Occurrences starting 01/2024 until 09/18/2023 CANNABINOID CONF, UR CANNABINOID CONF, UR Lab Routine Panic disorder 01/04/2024 10:20 AM EDT [facility] Cardiolipin IgA Ab [Units/volume] in Serum by Immunoassay [facility] Cardiolipin IgG Ab [Units/volume] in Serum by Immunoassay [facility] Cardiolipin IgM Ab [Units/volume] in Serum by Immunoassay [facility] Cell count, cerebros kinga fluid [facility] Work Phone: Centromere protein B Ab [Units/volume] in [facility] Cerebrospinal fluid examination [facility] Work Phone: Chromatin Ab [Units/volume] in Serum or [facility] Complement C3 [Mass/volume] in Serum or [facility] Complement C4 [Mass/volume] in Serum or [facility] Continuous pulse oximetry Pulse oximetry, continuous Respiratory Care Routine Every 4hr until discontinued starting 01/07/2021 [employer] Work Phone: Comment on above: Every 4hr until discontinued starting End: 10-26-2020 COVID-19 COVID-19 Lab Routine Preoperative testing 1 Occurrences starting 10/26/2020 until 10/26/2020 [employer] Work Phone: Comment on above: 1 Occurrences starting 10/26/2020 until 10/26/2020 COVID-19 [employer] Work Phone: End: 01-03-2021 COVID-19 COVID-19 Lab Routine Preop testing 1 Occurrences starting 01/03/2021 until 01/03/2021 [employer] Work Phone: Comment on above: 1 Occurrences starting 01/03/2021 until 01/03/2021 DBT Breast - bilater al diagnostic for implant LINDA DIAG W AV BILATERAL Radiology Routine Mass of upper outer quadrant of left breast 07/04/2024 11:59 AM EDT [facility] Work Phone: ECG COMPLETE ECG COMPLETE ECG Routine Chest pain, unspecified type Palpitations Ordered: 07/01/2024 [facility] Work Phone: Comment on above: Ordered: 07/01/2024 Electrophoresis: [id number] [facility] Electrophoresis: [id number] [facility] Electrophoresis: beta-globulin [facility] Electrophoresis: fiorella ma globulin [facility] Evaluation of cerebrospinal fluid [facility] Work Phone: Fluid sample volume measurement [facility] Work Phone: Globulin [Mass/volum e] in [facility] Glucose [Mass/volume ] in Cerebral spinal fluid [facility] Work Phone: Histone IgG Ab [Units/volume] in Serum by Immunoassay [facility] Homogenous nuclear A b pattern [Titer] in Serum [facility] IgA [Mass/volume] in Serum or [facility] IgG [Mass/volume] in Serum or [facility] IgM [Mass/volume] in Serum or [facility] Immunofixation for Urine [facility] End: 09-18-2023 INITIATE PACU OXYGEN THERAPY PROTOCOL Initiate PACU Oxygen Therapy Protocol Respiratory Care Routine Continuous until discontinued starting 09/18/2023 [facility] [employer] Comment on above: Continuous until discontinued starting 0 09/18/2023 Es-1 extractable nuc lear Ab [Units/volume] in [facility] Lupus anticoagulant [Interpretation] in Platelet poor plasma [facility] Measurement of monoc lonal protein concentration [facility] Meningitis+Encephali tis pathogens DNA and RNA panel - Cerebral spinal fluid by JOSÉ MIGUEL with non-probe detection [facility] Work Phone: Microscopic observat ion [Identifier] in Unspecified specimen by Gram stain [facility] Work Phone: End: 08-03-2025 MR Breast - bilateral WO and W contrast IV MRI BREAST WO/W IVCON BILATERAL Radiology Routine Mass of upper outer quadrant of left breast Fibrocystic breast changes of both breasts Mastodynia Inversion of left nipple Bloody discharge from left nipple Nipple discharge 1 Occurrences starting 07/04/2024 until 08/03/2025 [facility] Work Phone: Comment on above: 1 Occurrences starting 07/04/2024 until 08/03/2025 End: 04-07-2025 MR Breast - left WO and W contrast IV MRI BREAST BX WO/W IVCON LEFT Radiology Routine Mass of upper outer quadrant of left breast 1 Occurrences starting 03/08/2024 until 04/07/2025 [facility] Work Phone: Comment on above: 1 Occurrences starting 03/08/2024 until 04/07/2025 End: 12-20-2023 Mra head w/o & w/contrast material MRV BRAIN WO/W IVCON Radiology Routine Idiopathic intracranial hypertension 1 Occurrences starting 11/20/2022 until 12/20/2023 [facility] Work Phone: Comment on above: 1 Occurrences starting 11/20/2022 until 12/20/2023 Myoglobin [Mass/volu me] in Serum or [facility] Nebulizer therapy HHN Treatment Respiratory Care Routine TID until discontinued starting 01/07/2021 [facility] [employer] Work Phone: Comment on above: TID until discontinued starting 01/08/20 Nuclear Ab [Titer] i n [facility] Nucleated cells [#/v olume] in Cerebral spinal fluid by Manual count [facility] Work Phone: Oxygen therapy [Mini mum Data Set] [employer] [facility] Comment on above: Daily until discontinued starting 2020 Daily until disconti nued starting 01/07/2021 Daily until disconti nued starting 01/31/2021 Oxygen therapy [Mini mum Data Set] Initiate Oxygen Therapy Protocol Respiratory Care Routine As Needed until discontinued starting 09/18/2023 [facility] [employer] Work Phone: Comment on above: As Needed until discontinued starting Patient Education [facility] Work Phone: Patient referral [facility] Work Phone: Phase I & II - meter ed glucose Phase I & II - metered glucose Point of Care Testing Routine As Needed until discontinued starting 09/28/2020 [employer] [place] Comment on above: As Needed until discontinued starting End: 09-28-2020 , urine POCT , urine POCT Point of Care Testing Routine One Time for 1 Occurrences starting 09/28/2020 until 09/28/2020 [employer] [place] Comment on above: One Time for 1 Occurrences starting 09/14 until 09/28/2020 End: 09-18-2023 , urine POCT , urine POCT Point of Care Testing Routine One Time for 1 Occurrences starting 09/18/2023 until 09/18/2023 [facility] [employer] Comment on above: One Time for 1 Occurrences starting 01/2024 until 09/18/2023 Protein [Mass/volume ] in Cerebral spinal fluid [facility] Work Phone: Protein [Mass/volume ] in Serum or [facility] Protein [Mass/volume ] in Urine [facility] Reagin Ab [Presence] in Serum by RPR [facility] Red blood cell count [facility] Work Phone: Rheumatoid factor [Units/volume] in Serum or Plasma [facility] Serum immunofixation [facility] Sjogrens syndrome-A extractable nuclear Ab [Units/volume] in [facility] Sjogrens syndrome-B extractable nuclear Ab [Units/volume] in [facility] Helm extractable nu clear Ab [Units/volume] in [facility] SPECIMEN VALIDITY, URINE SPECIME N VALIDITY, URINE Lab Routine Panic disorder 01/04/2024 10:20 AM EDT [facility] Spirometry panel Incentive pete metry Respiratory Care Routine Every 2hr while awake until discontinued starting 01/07/2021 [facility] Work Phone: Comment on above: Every 2hr while awake until discontinued starting 01/07/2021 Surgical Pathology Surgical Path ology Lab Routine Release Upon Ordering for 1 Occurrences starting 09/28/2020 [facility]- [place], [place] Comment on above: Release Upon Ordering for 1 Occurrences starting 09/28/2020 SURGICAL PATHOLOGY [facility] Work Phone: Comment on above: Release Upon Ordering for 1 Occurrences starting 07/11/2024, 1 completed Thrombin time [facility] US Breast - left limited US JORDYN ST LTD LEFT Radiology Routine Mass of upper outer quadrant of left breast 07/04/2024 12:13 PM EDT [facility] Immunizations Immunization Date Immunization Notes Care Provider Jayme penaloza 04-29-2021 SARS-CoV-2 (COVID-19 ) mRNA BNT-162b2 vax Aimee Walker [facility] 04-08-2021 SARS-CoV-2 (COVID-19 ) mRNA BNT-162b2 vax Aimee Walker [facility] 07-23-2020 influenza virus vaccine, unspecified formulation Eileen Alvarez MD Work Phone: [facility] 07-09-2020 influenza nasal, unspecified formulation Elia Baires DO Work Phone: [facility] 07-09-2020 influenza virus vaccine, unspecified formulation Aimee Walker [facility] 07-09-2020 influenza, injectable, quadrivalent, preservative free Elia Baires DO Work Phone: [facility] 11-12-2000 hepatitis B vaccine, pediatric or pediatric/adolescent dosage Elia Baires DO Work Phone: [facility] 11-12-2000 measles, mumps and rubella virus vaccine Elia Baires DO Work Phone: [facility] NEGATED: Highlighted row has not occurred!07-21-2022 influenza virus vaccine, unspecified formulation Aimee Walker [facility] Payers Date Payer Category Payer Unknown [id number] 2024 Unknown 2023 Medicare (Managed Care) 1.2. [id number] 2023 Medicare [id number] 2021 Medicaid MEDICAID [id number] MEDICAID [id number] 2021-Present [phone] [address] [place] [address] Medicaid [id number] 2021 Medicaid [id number]. [id number] .[id number] 2021 Medicare HUMANA MEDICARE HUMANA MEDICARE PPO [id number] 2021-Present [phone] [address] [address] [place] [address] PPO [id number] .[id number] 2020 Medicare [id number] 1.2.840.232160.1.13.239.2.7 .[id number] 2018 Medicare [id number]. 1.13.159.2.7 .[id number] 2018 Medicare [id number] 1988 Unknown [id number] 2.16.840.1.035325.3.579.2.7 32 1988 Unknown [id number] 2.16.840.1.830807.3.579.2.1 77 1988 Unknown [id number] 2.16.840.1.874154.3.579.2.3 56 1988 Unknown [id number] 2.16.840.1.923154.3.579.2.5 93 1988 Unknown [id number] 2.16.840.1.048858.3.579.2.5 93 1988 Unknown [id number] 2.16.840.1.479637.3.579.2.5 93 1988 Unknown [id number] 2.16.840.1.877999.3.579.2.5 93 1988 Unknown [id number] 2.16.840.1.691452.3.579.2.5 93 1988 Unknown [id number] 2.16.840.1.121798.3.579.2.5 93 1988 Unknown [id number] 2.16.840.1.494452.3.579.2.5 93 1988 Unknown [id number] 2.16.840.1.572258.3.579.2.5 93 1988 Unknown [id number] 2.16.840.1.583170.3.579.2.5 93 1988 Unknown [id number] 2.16.840.1.427299.3.579.2.5 93 1988 Unknown [id number] 2.16.840.1.562829.3.579.2.5 93 1988 Unknown [id number] 2.16.840.1.209951.3.579.2.1 73 1988 Unknown [id number] 2.16.840.1.773018.3.579.2.1 73 1988 Unknown [id number] 2.16.840.1.399323.3.579.2.1 74 1988 Unknown [id number] 2.16.840.1.717467.3.579.2.1 74 1988 Unknown [id number] 2.16.840.1.243931.3.579.2.1 74 1988 Unknown [id number] 2.16.840.1.809389.3.579.2.7 27 1988 Unknown [id number] 2.16.840.1.101416.3.579.2.7 27 1988 Unknown [id number] 2.16.840.1.167739.3.579.2.7 27 1988 Unknown [id number] 2.16.840.1.781656.3.579.2.7 27 1988 Unknown [id number] 2.16.840.1.335093.3.579.2.7 27 1988 Unknown [id number] 2.16.840.1.648920.3.579.2.7 27 1988 Unknown [id number] 2.16.840.1.289570.3.579.2.1 246 1988 Unknown [id number] 2.16.840.1.107934.3.579.2.7 27 1988 Unknown [id number] 2.16.840.1.485559.3.579.2.7 27 1988 Unknown [id number] 2.16.840.1.840776.3.579.2.7 27 1988 Unknown [id number] 2.16.840.1.197928.3.579.2.7 27 1988 Unknown [id number] 2.16.840.1.482891.3.579.2.7 27 1988 Unknown [id number] 2.16.840.1.128725.3.579.2.1 75 1988 Unknown [id number] 2.16.840.1.656960.3.579.2.1 244 1988 Unknown [id number] 2.16.840.1.333603.3.579.2.7 27 1988 Unknown [id number] 2.16.840.1.488186.3.579.2.7 27 1988 Unknown [id number] 2.16.840.1.497999.3.579.2.7 27 1988 Unknown [id number] 2.16.840.1.978458.3.579.2.7 27 1988 Unknown [id number] 2.16.840.1.393220.3.579.2.7 27 1988 Unknown [id number] 2.16.840.1.677048.3.579.2.7 27 1988 Unknown [id number] 2.16.840.1.058275.3.579.2.7 27 1988 Unknown [id number] 2.16.840.1.520157.3.579.2.7 27 1988 Unknown [id number] 2.16.840.1.728327.3.579.2.7 27 1988 Unknown [id number] 2.16.840.1.685742.3.579.2.7 27 1988 Unknown [id number] 2.16.840.1.991712.3.579.2.7 27 1988 Unknown [id number] 2.16.840.1.473968.3.579.2.7 27 1988 Unknown [id number] 2.16.840.1.062281.3.579.2.7 27 1988 Unknown [id number] 2.16.840.1.007741.3.579.2.7 27 1988 Unknown [id number] 2.16.840.1.912610.3.579.2.7 27 1988 Unknown [id number] 2.16.840.1.629584.3.579.2.7 27 1988 Unknown [id number] 2.16.840.1.066455.3.579.2.7 27 1988 Unknown [id number] 2.16.840.1.450944.3.579.2.7 27 1988 Unknown [id number] 2.16.840.1.061320.3.579.2.7 27 1988 Unknown [id number] 2.16.840.1.161263.3.579.2.7 27 1988 Unknown [id number] 2.16.840.1.714592.3.579.2.7 27 1988 Unknown [id number] 2.16.840.1.090204.3.579.2.1 259 1988 Unknown [id number] 2.16.840.1.554364.3.579.2.1 259 1988 Unknown [id number] 2.16.840.1.145011.3.579.2.1 259 1988 Unknown [id number] 2.16.840.1.992284.3.579.2.1 259 1988 Unknown [id number] 2.16.840.1.859168.3.579.2.1 259 1988 Unknown [id number] 2.16.840.1.077342.3.579.2.7 27 1988 Unknown [id number] 2.16.840.1.992674.3.579.2.7 27 1988 Unknown [id number] 2.16.840.1.882431.3.579.2.7 27 1988 Unknown [id number] 2.16.840.1.665451.3.579.2.7 27 1988 Unknown [id number] 2.16.840.1.187720.3.579.2.7 27 1959 Medicaid [id number] 1.2.840.205170.1.13.239.2.7 .3.639289.315 1959 Private Health Insurance [id number] Self-pay [id number] Private Health Insurance [employer] [facility] PFFS [id number] Unknown [id number] 2.16.840.1.422215.3.579.2.5 31 Unknown [id number] 2.16.840.1.689253.3.579.2.5 31 Unknown [id number] 2.16.840.1.273314.3.579.2.5 31 Unknown [id number] 2.16.840.1.315161.3.579.2.5 31 Unknown [id number] 2.16.840.1.639135.3.579.2.5 31 Unknown [id number] 2.16.840.1.885454.3.579.2.5 31 Unknown [id number] 2.16.840.1.879848.3.579.2.5 31 Unknown [id number] 2.16.840.1.007447.3.579.2.5 31 Social History Date Type Detail Facility Start: 09-28-2020 End: 01-29-2022 Tobacco smoking status MTIS Former smoker [place] Start: 08-12-2022 End: 09-15-2024 History of tobacco use Current smoker [employer] [facility] Start: 09-28-2020 End: 04-13-2025 Tobacco use and exposure [facility] [employer] [facility]: 09-28-2020 End: 04-13-2025 [facility] intake [facility] Start: 09-28-2020 End: 07-03-2022 History SDOH Alcohol Frequency 1 [facility] Start: 09-28-2020 Alcohol Comment rare [facility] Start: 1990 Sex Assigned At Not on file [facility] [place] Start: 12-16-2021 End: 09-13-2024 Exposure to SARS-CoV-2 (event) Not sure [facility] [place] End: 03-14-2020 History of tobacco use Cigarette Smoker [employer] Phone: Start: 09-28-2020 Alcohol Comment rare [employer] Work Phone: Start: 12-26-2021 End: 05-30-2025 Tobacco smoking status NHIS Smokes tobacco daily [facility] Start: 12-26-2021 End: 04-13-2025 Cigarettes smoked current (pack per day) - Reported 1 [facility] Start: 03-18-2010 History SDOH Alcohol Comment beer and wine once a month [facility] Start: 07-01-2021 End: 02-17-2025 Tobacco smoking status Heavy tobacco smoker (finding) [facility] Tobacco smoking status Never [facility] Start: 07-03-2022 End: 04-13-2025 Sex Assigned At Female [facility] Start: 1990 Sex Assigned At Female [facility] Start: 07-03-2022 History SDOH Alcohol Frequency 5 [facility] Start: 07-03-2022 History SDOH Alcohol Std Drinks 4 [facility] Start: 07-03-2022 History SDOH Social Connections Get Together 2 [facility] Start: 07-03-2022 History SDOH Social Connections Living 3 [facility] Do you belong to any clubs or organizations such as restoration groups, unions, fraternal or athletic groups, or school groups? No [facility] Are you now , , , , never or living with a partner? [facility] How often to you hav e a drink containing alcohol? 4 or more times a week [facility] How many standard dr inks containing alcohol do you have on a typical day? 7 to 9 [facility] How often do you hav e 6 or more drinks on 1 occasion? Daily or almost daily [facility] How hard is it for y ou to pay for the very basics like food, housing, medical care, and heating Not very hard [facility] Do you feel stress - tense, restless, nervous, or anxious, or unable to sleep at night because your mind is troubled all the time - these days [OSQ] To some extent [facility] (I/We) worried iqra er (my/our) food would run out before (I/we) got money to buy more. Sometimes true [facility] The food that (I/we) bought just didn't last, and (I/we) didn't have money to get more. Never true [facility] Start: 01-13-2022 Gender identity Identifies as female gender (finding) [facility] Start: 02-06-2022 Sexual orientation Heterosexual (finding) [facility] How often to you hav e a drink containing alcohol? Never [facility] Start: 12-10-2023 Tobacco smoking status NHIS Never smoked tobacco (finding) [facility] Do you feel stress - tense, restless, nervous, or anxious, or unable to sleep at night because your mind is troubled all the time - these days [OSQ] Only a little [facility] Start: 07-04-2024 Alcohol Comment 13 days sober- 07/04/2024 [facility] Start: 08-08-2024 Alcoholic beverage intake Lifetime non-drinker (finding) [facility] Work Phone: Start: 09-11-2024 Sexual orientation Choose not to disclose [facility] Work Phone: How many standard dr inks containing alcohol do you have on a typical day? 3 or 4 [facility] Start: 08-26-2013 End: 09-15-2024 Sex Female (finding[facility] O[facility] Procedure Code Equipment Code Equipment Origin al Text Equipment Identifier Dates Breast Us Core B x Clip [id number] Start: 07-11-2024 Comment on above: Description: Ribbon clip Goals Date Patient Goal Desired Activity /State Functional Status Date Assessment Result Facility 01-27-2025 Functional Status N/A [facility] 01-24-2025 Functional Status N/A [facility] 01-13-2025 Functional Status N/A [facility] 11-28-2024 Functional Status N/A [facility] 11-15-2024 Functional Status N/A [facility] 10-18-2024 Functional Status N/A [facility] 03-08-2024 Functional Status N/A [facility] 07-02-2023 Functional Status N/A [facility] 01-15-2023 Functional Status N/A [facility] 11-21-2022 Functional Status No [facility] 11-03-2022 Functional Status N/A [facility] 09-24-2022 Functional Status N/A [facility] 08-22-2022 Functional Status N/A [facility] 08-18-2022 Functional Status N/A [facility] 08-12-2022 Functional status Patient at Baseline [facility] Work Phone: 08-08-2022 Functional Status N/A [facility] 07-21-2022 Functional Status N/A [facility] 04-21-2022 Functional Status N/A [facility] 04-20-2022 Functional Status N/A [facility] 04-03-2022 Functional Status N/A [facility] Mental Status Date Assessment Result Facility 08-12-2022 Cognitive function Cognitive Sta tus Patient at Baseline [facility] Work Phone: Clinical Notes 12-24-2020 to 05-04-2025 Aaliyah Zamudio, DO - 05/04/2025 9:45 AM EDTFcherellekaushik Zamudio, DO - 04/13/2025 10:00 AM EDTEvangelistalavonne Elise, BIOMEDICAL FIELD SERVICE ENGINEER - 04/09/2025 10:45 AM EDT Note Date [...] any follow up imaging. She lives in [place] and wants to move her care closer [...] Day Physical Exam Exam conducted with a fashion styling intern present. HENT: Head: Normocephalic. Cardiovascular: Rate and [...] and a subsequent biopsy done at the [facility] confirmed PASH. She was told [...] have been made. documented in this encounter [facility] 04-26-2025 Radiology Diagnostic study note [facility] [place] [address] Ultrasound Report Signed Patient: Shazia Chou MR#: [id number] : 1990 Acct:[id number] Age/Sex: 34 / F ADM Date: 5 Loc: [place] Room: Type: [facility] Attending Dr: Aaliyah Zamudio DO Ordering Provider: Aaliyah Zamudio DO Date of Service: 04/26/25 MM/MM diagnostic mammo LT w/CAD: follow up for Left breast Upper outer quadrant ([id number]) US/US breast LT limited: follow with mamm [...] Escalante M.D. 04/26/2025 10:15 AM Dictation Location: [facility] Tech: Shazia Mullen; Elena Vaughn Transcribed By: MARKY 04/26/25 1015 Dictated By: Denny Escalante MD 04/26/25 1009 Signed By: 04/26/25 1015 [facility] Work Phone: 04-13-2025 History of Present illness Narrative Images from the original note were not included. Shazia Chou 1990 Shazia Chou is a 34 y.o. female presents with chief complaint of Left breast hypertrophy HPI: CLEMENT Mccray states in June she [...] any follow up imaging. She lives in [place] and wants to move her care closer [...] Day Physical Exam Exam conducted with a fashion styling intern present. HENT: Head: Normocephalic. Cardiovascular: Rate and [...] and a subsequent biopsy done at the [facility] confirmed PASH. She was told to [...] imaging is completed. documented in this encounter [facility] 04-09-2025 History of Present illness Narrative Images from the original note were not included. [address] , [address] [facility], [address] P: [phone] F: [phone] HPI Historian of HPI: patient Shazia Chou [...] Shazia Elise NP documented in this encounter [facility] 03-29-2025 Note Pulmonology Office/Shaneka umaña Note [...] Narcisa BHAKTA, Sami Longoria, PUL, GREER [address] [facility]) [place] [address]- Additional Instructions: after his testing is completed [...] plantar fasciotomy (02/16/20 (more content not included)... [facility] Comment on above: Result Comment: Elec [...] Appointments Appointment Date:03/13/2025 11:30:00 AM Scheduled Provider: Location:[facility] Appointment Type:NM Myocard Spect Multi Rest/Stress-Res [...] NM Myocardial Spect Rest/Stress 1 Day 03/13/25 [facility] 06-26-2025 NoteConsultation Note Patient is presenting with [...] call with any questions or concerns that arise.[facility] Hospital[facility] on above:Result Comment: Electronically Signed By: Babar Mayers DO.benito\Date and Time Signed: 03/09/25 13:04 EDT 03-03-2025 [...] The patient agrees to continue currently prescribed/recommended therapies.[facility] Hospital[facility] on above: Result Comment: Electronically Signed By: Babar Mayers DO.br\Date and Time Signed: 03/03/25 08:46 [id number] Hospital Discharge instructions Patient Education 02/17/2025 21:08:51 [...] Follow these instructions at home: Medicines Take dusi-mgv-lcfmhkm and prescription medicines only as told by [...] provider. Document Revised: 01/09/2022 Document Reviewed: 01/09/2022 [employer] Patient Education 2023 [employer] 02/17/2025 21:08:51 Acute Bronchitis, Adult Acute Bronchitis, [...] condition. 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 Avoid contact with people who have cold [...] it is easier to cough up. Take ggwz-rml-wjpbltt and prescription medicines only as told by [...] provider. Document Revised: 12/11/2022 Document Reviewed: 01/01/2022 [employer] Patient Education 2023 [employer] Follow Up Care 02/17/2025 18:54:28 With:Jennie Durand Address: [address] [place], [place] [address], [address] [place] [address] Business (1) When:02/20/2025 20:12:05 [facility] 06-06-2025 NoteED Patient Education Note Neurology Near-Syncope [...] these instructions at home: Medicines ??? Take rqkk-ulo-bhfmhol and prescription medicines only as told by [...] provider. Document Revised: 01/09/2022 Document Reviewed: 01/09/2022 [employer] Patient Education ? 2023 [employer] Pulmonary Medicine Acute Bronchitis, Adult Acute bronchitis [...] the common cold. ??? (more content not included)...[facility]06-02[facility] Telephone encounter Note* Telephone Encounter - Tevin Carson DO - 02/13/2025 8:56 AM EDT Needs follow-up Tevin Carson DO [facility]06-02-2025 Miscellaneous Notes* Telephone Encounter - Tevin [...] advise. Madeline Teixeira MA [facility] encounter Note * Telephone Encounter - Madeline Teixeira MA - 02/11/2025 10:13 AM EDT Last OV 07/25/2024 ..Pharmacy escripts requesting the following refill: Requested Prescriptions Pending Prescriptions Disp Refills lamoTRIgine (LAMICTAL) 25 mg tablet [Pharmacy Med Name: LAMOTRIGINE 25 MG TABLET] 360 tablet 0 Sig: TAKE 2 TABLETS BY MOUTH TWICE A DAY Please review and advise. Madeline Teixeira MA [facility]05-30-2025 NoteEchocardiology Procedure Exam Date/Time Accession # Ordering Echo Transthoracic 02/09/2025 11:26 EDT [id number] MOLLY GREGORIO CNP CPT code 14617 53414 Reason for Exam (Echo Transthoracic Complete) Palpitations R00.[address] [place] [address] Adult Echocardiogram Report Name: SHAZIA CHOU Study Date: 02/09/2025 10:52 AM BP: 135/99 mmHg Patient Location: [facility] Ambulatory(s) [facility] HR: 65 : 1990 Gender: Female Height: 67 in Age: 34 yrs Ethnicity: [facility] Weight: 205 lb Reason For Study: Palpitations [...] AB ED Mass (HM): 133.0 grams LAEF (HM): 62.0 % BSA (HM): 2.0 m2 CI (HM): 2.8 l/min/m2 MINESH (HM): 25.0 ml/m2 LAVmax (HM): 50.0 ml LAVmin (HM): 19.0 ml Pat Height (HM): 170.0 cm Pat Weight (HM): 93.0 kg FINAL REPORT Dictated: 02/09/2025 10:52 am Fernandez Daniels MD Signed (Electronic Signature): 02/10/2025 11:27 am Signed by: Fernandez Daniels MD Transcribed by: GINA Technologist: [facility]05-16-2025 Evaluation + Plan noteExtracted from: Title:Pain Managment [...] training to prevent future risk of falling. [facility] 05-16-2025 NoteConsultation Note Patient: SHAZIA CHOU Age: [...] TID, # 90 tab(s), Refills(s) 2, Pharmacy: [facility]/pharmacy #[id number], 170, cm, 01/13/25 [...] All Problems Bipolar disorder / SNOMED CT 40449036 / Confirmed Pancreatic mass / SNOMED CT 0960680365 / Confirmed Smoker / SNOMED CT 342315226 / Confirmed Added secondary to documentation in Social History. Borderline personality disorder / SNOMED CT 81226566 / Confirmed History of bypass of stomach / SNOMED CT 0823331396 / Confirmed Vitamin D deficiency / SNOMED CT 99791446 / Confirmed Left breast mass / SNOMED CT 367385911 / Confirmed Hypertension / SNOMED CT 0849798699 / Confirmed Overweight (BMI 25.0-29.9) / SNOMED CT 9683489193 / Confirmed Muscle weakness-general / SNOMED CT 12476841 / Confirmed Chronic pain syndrome / SNOMED CT 0667481614 / Confirmed Iron deficiency anemia / SNOMED CT 830797257 / Confirmed noted in 09/16/2024 [facility] Records page 5. added per OP CDI policy. Alcohol abuse, uncomplicated / SNOMED CT 87062196 / Confirmed BMI 31.0-31.9,adult / SNOMED CT 517181911 / Confirmed Obesity (BMI 30-39.9) / SNOMED CT 996052039 / Confirmed Resolved: / SNOMED CT 988054425 Resolved: / SNOMED CT 350177850 Resolved: / SNOMED CT 222944320 Resolved: Alcohol abuse / SNOMED CT 80799858 Canceled: Anxiety and depression / SNOMED CT 07863288 Canceled: Plantar fasciitis of left foot / SNOMED CT 119675169 Canceled: Intracranial hypertension / SNOMED CT 644555335 Canceled: Smoker / SNOMED CT [id number] Added secondary to documentation in Social History. Canceled: Class 1 obesity with body mass index (BMI) of 32.0 to 32.9 in adult / SNOMED CT 9821914154 Canceled: Anxiety / SNOMED CT 31220694 Canceled: Depression / SNOMED CT 87303217 Canceled: Borderline personality disorder / SNOMED CT 62861783 Canceled: Class 1 obesity with body mass index (BMI) of 30.0 to 30.9 in adult / SNOMED CT 8694071205 Canceled: Former smoker / SNOMED CT 00990971 Canceled: Grief reaction / SNOMED CT 536520096 Canceled: Overweight with body mass index (BMI) of 29 to 29.9 in adult / SNOMED CT 1752651073 Canceled: Disorder of oral soft tissue / SNOMED CT 4196600244 Canceled: Intentional benzodiazepine overdose / SNOMED CT 1026962004 Canceled: Omental infarction / SNOMED CT 411480395 Canceled: Axillary (more content not included)...[facility] Comment on above:Result Comment: Electronically Signed By: Orlando Ktae PA-C\.br\Date and Time Signed: 01/27/25 10:38 [id number] NoteOperative Report Diagnosis: m47.816, lumbar spondyloarthropathy Procedure: [...] The patient agrees to continue currently prescribed/recommended therapies.[facility] HospitalComment on above: Result Comment: Electronically Signed By: Babar Mayers DO\.br\Date and Time Signed: 01/24/25 09:58 [id number] Evaluation + Plan noteExtracted from: Title:Pain Managment [...] treatments including physical therapy in the past, qvnh-csi-nxjexnk anti-inflammatory medications and the recent injection helped [...] Provider: Location:.[facility] [place] Appointment Type:PT Julieta () [facility] 05-02-2025 NoteConsultation Note Patient: SHAZIA CHOU Age: [...] been working full- time. 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 She states that it was miserable. At this time, she has back pain that she rates a 7/10 but it can get up to a 10/10 with walking, standing, being upright and active. She feels like the Lyrica did not help her so she went back to [facility]. She is using 600 mg usually [...] # 6 tab(s), Refills(s) 1, Pharmacy: [facility]/pharmacy #[id number], 162, cm, 08/08/22 9:11:00 EST, Height/Length Dosing, 83.1, kg, 08/08/22 9:11:00 EST, Weight Dosing pregabalin 50 mg Cap: 50 mg = 1 cap(s), Oral, BID, X 30 day(s), # 60 cap(s), Refills(s) 1, Pharmacy: [facility]/pharmacy #[id number], 170, cm, 11/15/24 [...] All Problems Bipolar disorder / SNOMED CT 49106770 / Confirmed Pancreatic mass / SNOMED CT 2093367655 / Confirmed Smoker / SNOMED CT 358561244 / Confirmed Added secondary to documentation in Social History. Borderline personality disorder / SNOMED CT 22644806 / Confirmed History of bypass of stomach / SNOMED CT 1599793738 / Confirmed Vitamin D deficiency / SNOMED CT 67050297 / Confirmed Left breast mass / SNOMED CT 055565868 / Confirmed Hypertension / SNOMED CT 0148804664 / Confirmed Overweight (BMI 25.0-29.9) / SNOMED CT 9156187709 / Confirmed Muscle weakness-general / SNOMED CT 73591751 / Confirmed Chronic pain syndrome / SNOMED CT 9128415311 / Confirmed Iron deficiency anemia / SNOMED CT 002039626 / Confirmed noted in 09/16/2024 [facility] Records page 5. added per OP CDI policy. Alcohol abuse, uncomplicated / SNOMED CT 85479797 / Confirmed BMI 31.0-31.9,adult / SNOMED CT 046358053 / Confirmed Obesity (BMI 30-39.9) / SNOMED CT 352675179 / Confirmed Resolved: / SNOMED CT 580650283 Resolved: / SNOMED CT 129586029 Resolved: / SNOMED CT 172063433 Resolved: Alcohol abuse / SNOMED CT 36875345 Canceled: Anxiety and depression / SNOMED CT 01543396 Canceled: Plantar fasciitis of left foot / SNOMED CT 733030537 Canceled: Intracranial hypertension / SNOMED CT 621543608 Canceled: Smoker / SNOMED CT [id number] Added secondary to documentation in Social History. Canceled: Class 1 obesity with body mass index (BMI) of 32.0 to 32.9 in adult / SNOMED CT 9505284185 Canceled: Anxiety / SNOMED CT 00712036 Canceled: Depression / SNOMED CT 77107079 Canceled: Borderline personality disorder / SNOMED CT 29004468 Canceled: Class 1 obesity with body mass index (BMI) of 30.0 to 30.9 in adult / SNOMED CT 6004891370 Canceled: Former smoker / SNOMED CT 35505433 Canceled: Grief reaction / SNOMED CT 018482965 Canceled: Overweight with body mass index (BMI) of 29 to 29.9 in adult / SNOMED CT 3070040972 Cance (more content not included)...[facility] HospitalComment on above: Result Comment: Electronically Signed By: Orlando Kate PA-C\.br\Date and Time Signed: 01/13/25 08:44 [id number] Evaluation + Plan noteExtracted from: Title:Bilateral lumbar [...] Date:01/27/2025 10:15:00 AM Scheduled Provider:Orlando Kate PA-C Location:[facility] Appointment Type:Pain Management - Follow Up (FT) [facility] 04-05-2025 Evaluation + Plan noteExtracted from: Title:Bilateral [...] Date:03/09/2025 12:30:00 PM Scheduled Provider:Babar Mayers DO Location:[facility] Appointment Type:Pain Management - Follow Up (FT) Appointment Date:03/13/2025 11:30:00 AM Scheduled Provider: [facility] App[facility] Type:NM Myocard Spect Multi Rest/Stress-Res Appointment Date:03/13/2025 12:30:00 PM Scheduled Provider: [facility] Appointment Type:NM Myocard Spect Multi Rest/Stress - R Appointment Date:03/13/2025 01:00:00 PM Scheduled Provider: [facility] Appointment Type:NM Myocard Spect Multi Rest/Stress-Str Appointment Date:03/13/2025 02:00:00 PM Scheduled Provider: [facility] Appointment Type:NM Myocar Spect Multi Rest/Stress - St Appointment Date:03/16/2025 02:30:00 PM Scheduled Provider:Jak Peace MD Location:[facility] Appointment Type:Cardiology Follow Up (FT) Future Scheduled Tests Radiology* NM Myocardial Spect Rest/Stress 1 Day 03/13/25 [facility] 03-17-2025 Evaluation + Plan noteExtracted from: Title:Left [...] Date:12/19/2024 10:15:00 AM Scheduled Provider:Orlando Kate PA-C Location:[facility] Appointment Type:Pain Management - Follow Up (FT) Future Scheduled Tests Radiology* US Abdomen, Limited 11/29/24 [facility] 03-17-2025 NoteOperative Report Diagnosis: m54.16, lumbar radiculopathy [...] and agrees to comply to currently prescribed/recommended therapies.[facility] Comment on above:Result Comment: Electronically Signed By: Babar Mayers DO\.br\Date and Time Signed: 11/28/24 10:22 [id number] NoteConsultation Note Patient: SHAZIA CHOU Age: 33 [...] all conservative treatments first. She has taken bhxe-zeh-pwzvuny medication without any long-term relief. She states that her left leg pain affects her quality of life and affects her activities. 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 She is hopeful to be able to [...] All Problems Bipolar disorder / SNOMED CT 60416204 / Confirmed Pancreatic mass / SNOMED CT 0149872944 / Confirmed Smoker / SNOMED CT 161927638 / Confirmed Added secondary to documentation in Social History. Borderline personality disorder / SNOMED CT 74882440 / Confirmed History of bypass of stomach / SNOMED CT 5499374850 / Confirmed Vitamin D deficiency / SNOMED CT 16259536 / Confirmed Left breast mass / SNOMED CT 884979990 / Confirmed Hypertension / SNOMED CT 6538853545 / Confirmed Overweight (BMI 25.0-29.9) / SNOMED CT 6877834031 / Confirmed Muscle weakness-general / SNOMED CT 69575880 / Confirmed Chronic pain syndrome / SNOMED CT 5510894386 / Confirmed Iron deficiency anemia / SNOMED CT 942839393 / Confirmed noted in 09/16/2024 [facility] Records page 5. added per OP CDI policy. Alcohol abuse, uncomplicated / SNOMED CT 77473447 / Confirmed BMI 31.0-31.9,adult / SNOMED CT 599214252 / Confirmed Obesity (BMI 30-39.9) / SNOMED CT 019004718 / Confirmed Resolved: / SNOMED CT 727776371 Resolved: / SNOMED CT 724985745 Resolved: / SNOMED CT 364276484 Resolved: Alcohol abuse / SNOMED CT 16993080 Canceled: Anxiety and depression / SNOMED CT 63911967 Canceled: Plantar fasciitis of left foot / SNOMED CT 880232768 Canceled: Intracranial hypertension / SNOMED CT 242292017 Canceled: Smoker / SNOMED CT [id number] Added secondary to documentation in Social History. Canceled: Class 1 obesity with body mass index (BMI) of 32.0 to 32.9 in adult / SNOMED CT 7870770928 Canceled: Anxiety / SNOMED CT 76674765 Canceled: Depression / SNOMED CT 53466880 Canceled: Borderline personality disorder / SNOMED CT 44380642 Canceled: Class 1 obesity with body mass index (BMI) of 30.0 to 30.9 in adult / SNOMED CT 6241320855 Canceled: Former smoker / SNOMED CT 09019745 Canceled: Grief reaction / SNOMED CT 870266897 Canceled: Overweight with body mass index (BMI) of 29 to 29.9 in adult / SNOMED CT 5161983820 Canceled: Disorder of oral soft tissue / SNOMED CT 7538576341 Canceled: Intentional benzodiazepine overdose / SNOMED CT 7536929551 Canceled: Omental infarction / SNOMED CT 678776783 Canceled: Axillary lymphadenopathy / SNOMED CT 366506 Canceled: BMI 28.0-28.9,adult / SNOMED CT 5137763912 Canceled: Over weight / SNOMED CT 879216468 Canceled: Leukocytosis / SNOMED CT 402230976 Canceled: BMI 29.0-29.9,adult / SNOMED CT 1349429415 Canceled: Headache after spinal puncture / SNOMED CT 529248297 Canceled: Trapezius muscle spasm / SNOMED CT 9565860967 Canceled: Recovering alcoholic (more content not included)...[facility]:Result Comment: Electronically Signed By: Humble GERONIMO, Orlando\.br\Date and Time Signed: 11/15/24 14:14 [id number] Evaluation + Plan noteExtracted from: Title:Pain Managment [...] clinic sooner if necessary. NOAH score: 42%. [facility] 02-04-2025 Evaluation + Plan noteExtracted from: Title:ED Note Author:Beto Shea PA-C te:10/18/24 Chronic pain (G89.29: Other chronic pain) Orders: ketorolac, 60 mg = 2 mL, Injection, IntraMuscular, Once PRN Pain, STAT, Start date 10/18/24 8:31:00 EST, 10/18/24 8:31:00 EST methocarbamol, 1,500 mg = 2 tab(s), Oral, TID, X 3 day(s), # 18 tab(s), Refills(s) 0, Pharmacy: [facility]/pharmacy #[id number], 170, cm, 10/18/24 8:12:00 EST, Height/Length Dosing, 90, kg, 10/18/24 8:12:00 EST, Weight Dosing predniSONE, 60 mg = 3 tab(s), Oral, Daily, X 7 day(s), # 21 tab(s), Refills(s) 0, Pharmacy: [facility]/pharmacy #[id number], 170, cm, 10/18/24 8:12:00 EST, Height/Length Dosing, 90, kg, 10/18/24 8:12:00 EST, Weight Dosing Future Appointments Appointment Date:11/18/2024 08:00:00 AM Scheduled Provider:KURT BALBUENA CNP Location:[facility] Appointment Type:[facility] [id number] Hospital Discharge instructions Patient Education 10/18/2024 08:40:02 [...] your skin (aromatherapy). Other treatments may include: Muje-aoh-wmafkqh or prescription medicines. Color, light, or sound therapy. Local electrical stimulation. The electrical pulses help to relieve pain by temporarily stopping the nerve impulses that cause you to feel pain. Injections. These deliver numbing or pain-relieving medicines into the spine or the area of pain. Medicines Take vmym-emb-nkgoxcz and prescription medicines only as told by your health care provider. Ask your health care provider if the medicine prescribed to you: ?Requires you to avoid driving or using machinery. ?Can cause constipation. You may need to take these actions to prevent or treat constipation: ?Drink enough fluid to keep your urine pale yellow. ?Take dskd-fss-jzmpami or prescription medicines. ?Eat foods that are [...] the National Suicide Prevention Lifeline at or 464. This is open 24 hours a day. Text the Crisis Text Line at 179730. This information is not intended to replace advice given to you by your health care provider. Make sure you discuss any questions you have with your health care provider. Document Revised: 04/22/2023 Document Reviewed: 03/25/2023 [employer] Patient Education 2023 [employer] Follow Up Care 10/18/2024 08:05:45 With:KURT BALBUENA Address: [address] [place] [phone] Business (1) When:10/21/2024 08:32:28 [facility] 02-04-2025 NoteED Patient Education Note Mental and [...] skin (aromatherapy). Other treatments may include: ??? Agkq-gqm-kyfbpmj or prescription medicines. ??? Color, light, or sound therapy. ??? Local electrical stimulation. The electrical pulses help to relieve pain by temporarily stopping the nerve impulses that cause you to feel pain. ??? Injections. These deliver numbing or pain-relieving medicines into the spine or the area of pain. Medicines ??? Take ehce-hvp-iagokoy and prescription medicines only as told by your health care provider. ??? Ask your health care provider if the medicine prescribed to you: ? Requires you to avoid driving or using machinery. ? Can cause constipation. You may need to take these actions to prevent or treat constipation: ? Drink enough fluid to keep your urine pale yellow. ? Take wmwb-bsj-wxxtgci or prescription medicines. ? Eat foods that [...] the National Suicide Prevention Lifeline at or 173. This is open 24 hours aday. ??? Text the Crisis Text Line at 830453. This information is not intended to replace advice given to you by your health care provider. Make sure you discuss any questions you have with your health care provider. Document Revised: 04/22/2023 Document Reviewed: 03/25/2023 [employer] Patient Education ? 2023 [employer] 10-17-2024 NoteHNO ID: [id number] Author: MELISSA GOLD MA Service: ? Author Type: Box Order Person Type: Progress Notes Filed: 10/17/2024 12:28 Note [...] or unnecessary to reach patient: Left message INWEBTURE Limitedhart message sent HCC related Navigation Signature: Melissa Gold MA October 17, 2024 12:23 [facility]02-03-2025 History of Present illness Narrative* [...] or unnecessary to reach patient: Left message INWEBTURE LimitedharVocoMD message sent HCC related Navigation Signature: Melissa Gold MA October 17, 2024 12:23 PM documented in this encounterGuernsey [facility] Hospital02-03-2025 NotePatient Outreach (NETNAV) SHAZIA CHOU ([id number]) 1990 F Date Time Provider Department 10/17/24 [...] or unnecessary to reach patient: Left message INWEBTURE Limitedhart message sent HCC related Navigation Signature: Melissa [...] mg by mouth daily at bedtime. - epvajwgkiiel-tmm-jaha-FA-vit K (BARIATRIC MULTIVITAMINS) 45 mg iron- 800 [...] 03/08/2024 Encounter Status:Closed by MELISSA GOLD on 10/17/24[facility]01-31-2025 NotePatient Education Mental and Behavioral Health [...] plan to use machinery, such as a gill box tender or power tool. ? You have a [...] National Drug and Alcohol Treatment Referral Service: 2-445-321-HELP (3116) ??? Alcoholics Anonymous, Alcoholics Resource Center: ??? Substance Abuse and Mental Health Services Administration: [facility] centera.gov Where to find more information: ??? Centers for Disease Control and Prevention: cdc.gov ??? National [place] on Alcohol Abuse and Alcoholism: niaaa.nih.gov/alcohol Contact [...] the National Suicide Prevention Lifeline at or 948. This is open 24 hours aday. ??? Text the Crisis Text Line at 827801. Summary ??? Binge-drinking refers to drinking a large amount of alcohol in a short time. This is usually 5 drinks for men or 4 drinks for women, on one occasion. ??? Binge-drinking can lead to serious health problems, such as heart dise (more content not included)...[facility]01-17-2025 NotePatient Education Mental and Behavioral Health [...] skin (aromatherapy). Other treatments may include: ??? Bfno-ibs-vfefeuf or prescription medicines. ??? Color, light, or sound therapy. ??? Local electrical stimulation. The electrical pulses help to relieve pain by temporarily stopping the nerve impulses that cause you to feel pain. ??? Injections. These deliver numbing or pain-relieving medicines into the spine or the area of pain. Medicines ??? Take pkny-bmc-chsushl and prescription medicines only as told by your health care provider. ??? Ask your health care provider if the medicine prescribed to you: ? Requires you to avoid driving or using machinery. ? Can cause constipation. You may need to take these actions to prevent or treat constipation: ? Drink enough fluid to keep your urine pale yellow. ? Take dfxx-sds-xwfknyu or prescription medicines. ? Eat foods that [...] the National Suicide Prevention Lifeline at or 112. This is open 24 hours aday. ??? Text the Crisis Text Line at 338817. This information is not intended to replace advice given to you by your health care provider. Make sure you discuss any questions you have with your health care provider. Document Revised: 04/22/2023 Document Reviewed: 03/25/2023 [employer] Patient Education ? 2023 [employer] 09-27-2024 History of Present illness Narrative* Corby Larsen, DO - 09/27/2024 2:00 PM EST Images from the original note were not included. Reason for Appointment: EMG Patient: Shazia Chou : 1990 EMG Computer: Goby Referring Physician: Dr. Corby Larsen EMG: MILTON sample clerk: Saúl Mccray RT(R) Office Location: [place] Reason for EMG: c/o weakness in bilateral [...] nature of the test. documented in this encounterBarnes-Jewish [id number] History of Present illness Narrative* Corby Larsen [...] typically knows very well. She works at [employer] and will forget what goes on pizzas [...] , wrist extensors , wrist flexor , legal researcher strength 5/5. LUE Strength deltoid , biceps , triceps , wrist extensors , wrist flexor , legal researcher strength 5/5. RLE Strength illopsoas, quadriceps, tibialis [...] lower extremities on 07/09/23: Normal LP at [facility] on 08/19/22: Opening pressure of 23 cm of CSF, CSF testing was unremarkable MRI brain and MR venogram on 08/11/22 at [facility]: unremarkable. Assessment/Plan Diagnoses and all orders for this visit: Ataxia It is my impression that patient has abnormal dxkrbe-mx-qyms testing and feels like she is walking [...] without contrast. We will do this at [facility] for comparison. Paresthesia Patient continues to complain [...] of mental health issues documented in this encounterBarnes-Jewish [id number] Evaluation + Plan note Diagnostic Tests Pending * Vitamin A Level 09/20/24 [facility] [id number] Radiology Diagnostic study [facility] [place] [address] [place] [address] CT Scan Report Signed Patient: Shazia Chou MR#: [id number] : 1990 Acct:[id number] Age/Sex: 33 / F ADM Date: 5 Loc: ER Room: Type: [facility] ER Attending Dr: Copies to: Sailaja Anderson APRN~ Ordering Provider: Sailaja Anderson APRN Date of Service: 09/15/24 CT/CT angio head: weakness ([id number]) CT/CT angio neck: weakness ([id number]) CT/CT head/brain wo con: weakness CT head/brain [...] Wiley Shetty M.D.09/15/2024 3:56 PM Dictation Location: [place] [address] Transcribed By: [facility] 09/15/24 [id number] Dictated By: Wiley Shetty II, MD 09/15/24 1546 Signed By: 09/15/24 1556 [facility] Work Phone: 1(499) 706-500701-02-2025 NotePatient Education Mental and Behavioral Health Myofascial [...] these instructions at home: Medicines ??? Take hqax-zzi-uizmfso and prescription medicines only as told by your health care provider. ??? Ask your health care provider if the medicine prescribed to you: ? Requires you to avoid driving or using machinery. ? Can cause constipation. You may need to take these actions to prevent or treat constipation: ? Drink enough fluid to keep your urine pale yellow. ? Take ctxl-ekv-zfywarm or prescription medicines. ? Eat foods that [...] ??? Do not use (more content not included)...[facility] 09-13-2024 Miscellaneous Notes* Result Encounter Note - Aleah Howard MD - 09/13/2024 9:45 AM EST Shazia your echocardiogram shows normal heart pump function and valves, we will discuss more at upcoming visit. documented in this [facility] Work Phone: 1(261) 993-520812-31-2024 Progress note* Result Encounter Note - Aleah Howard MD - 09/13/2024 9:45 AM EST Shazia your echocardiogram shows normal heart pump function and valves, we will discuss more at upcoming visit. [facility] Work Phone: 1(629) 762-557212-23-2024 Telephone encounter Note* Telephone Encounter - Hilda Lemos RN - 09/05/2024 10:07 AM EST S- patient asked PCP to review labs B- recent ER visit 08/27/24 A- uploaded care everywhere. ER follow up phone call. R- Follow up scheduled 09/13 At [place] [facility]. Lipase 271 at [place] Concerned about [place] and [place] reports. Patient will screenshot and send her lab work from the other hospitals in a L4 Mobile message CALL FOR ER FOLLOW UP: On this date and time, Shazia was seen at 08/27/24 at [facility] 08/22/24 at [facility] How is patient doing now? Lipase 271 at [place] Concerned about [place] and [place] reports. Patient will screenshot and send her [...] Impression: updated care everywhere. RX: none Hilda Lemos MSN western felt hat blocker of Dr. Carson [facility] [address] [place] [address] phone [phone] fax [facility]12-23-20[facility] Miscellaneous Notes* Telephone Encounter - Hilda Lemos RN - 09/05/2024 10:07 AM EST S- patient asked PCP to review labs B- recent ER visit 08/27/24 A- uploaded care everywhere. ER follow up phone call. R- Follow up scheduled 09/13 At [facility]. Lipase 271 at [place] Concerned about [place] and [place] reports. Patient will screenshot and send her lab work from the other hospitals in a L4 Mobile message CALL FOR ER FOLLOW UP: On this date and time, Shazia was seen at 08/27/24 at [facility] 08/22/24 at [facility] How is patient doing now? Lipase 271 at [place] Concerned about [place] and [place] reports. Patient will screenshot and send her [...] updated care everywhere. RX: none Hilda KHALIL western felt hat blocker of Dr. Carson [facility] [address] [place] [address] phone [phone] fax documented in this encounterGuernsey Memorial Hospital12-12-2024 NoteHNO ID: [id number] Author: MARY JO TRINIDAD RN Service: ? [...] 08-22-24 OTHER FINDINGS/SUMMARY: None Patient Attributed To: E Payer: Mauricio HAMMOND Action Taken: No action needed. Contact made with patient: No, Chart review only. Signature: Mary Jo Trinidad RNMer[facility] Health St[facility]12-[facility]2024 History of Present illness Narrative* Mary Jo Trinidad RN - 08/25/2024 2:56 PM EST [facility] EDYTA RN Patient identified by name and [...] Mary Jo Trinidad RN documented in this encounterGuernsey Memorial Hospital12-12-2024 NotePatient Outreach ([facility] JOSÉ ANTONIOSHAZIA ([id number]) 1990 F Date Time Provider Department 08/25/24 MARY JO TRINIDAD [facility] During your visit today, we recorded the [...] - Fully Assessed Reason for Visit: CARMELINA LAN RN [[id number]] Cmt: ED Utilization Review per request of [...] mg by mouth daily at bedtime. - vepnoxycyrwq-ika-txsf-FA-vit K (BARIATRIC MULTIVITAMINS) 45 mg iron- 800 [...] Encounter Status:Closed by MARY JO TRINIDAD on 08/25/24[facility]12-05-2024 Evaluation + Plan note Diagnostic Tests Pending * EBV Antibody Profile 08/18/24 * Jazmin Teixeira Ab Early Antigen 08/18/24 [facility] [id number] Telephone encounter Note* Telephone Encounter - Tevin Carson DO - 08/17/2024 3:12 PM EST The following approved medication requests have been transmitted electronically. Requested Prescriptions Pending Prescriptions Disp Refills lamoTRIgine (LAMICTAL) 25 mg tablet [Pharmacy Med Name: LAMOTRIGINE 25 MG TABLET] 360 tablet 0 Sig: Take 2 tablets by mouth two times a day. Tevin Carson DO [facility]12-04-2024 Miscellaneous Notes* Telephone Encounter - Tevin [...] advise. Jacinda Arreola MA, documented in this encounterGuernsey Memorial Hospital12-04-2024 Telephone encounter Note * Telephone Encounter - Jacinda Arreola MA - 08/17/2024 2:42 PM EST Pt last seen 07/25/24. Pharmacy electronically requesting refills as follows: Requested Prescriptions Pending Prescriptions Disp Refills lamoTRIgine (LAMICTAL) 25 mg tablet [Pharmacy Med Name: LAMOTRIGINE 25 MG TABLET] 360 tablet 1 Sig: TAKE 2 TABLETS BY MOUTH TWICE A DAY Please review and advise. Jacinda Arreola MA, [facility]12-03-2024 NoteNormal sinus rhythm at 75 bpm normal intervals abnormal R wave progression cannot exclude previous anterior septal myocardial infarction, 1 ventricular premature beat is noted. 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 She is status post partial hysterectomy. [...] lamoTRIgine (LAMICTAL) 50 mg, 2 times daily unmymhstudvz-sfv-cuip-FA-vit K (Bariatric Multivitamins) 45 mg iron- 800 [...] already been to the emergency room in [place] for her symptoms. Follow-up after testing Discussed the impact of nicotine. Will continue to address at every visit. She was advised and encouraged to work on nicotine cessation. Provider Attestation - Scribe documentation Scribe Attestation By signing my name below, I, Rita Mcqueen LPN , Scribe attest that this documentation has been prepared under the direction and in the presence of Aleah Howrad MD. All medical record entries made by the Scribe were at my direction and personally dictated by me. Ihave reviewed the chart and agree that the record accurately reflects my personal performance of the history, physical exam, discussion and plan. documented in this encounterFostoria City Hospital Work Phone: 1(490) 860-574011-25-2024 Instructions* Patient Instructions* Rita Knowles LPN - [...] Provided instructions on exercise. documented in this encounterFostoria City Hospital Work Phone: 1(747) 133-507311-11-2024 NoteHNO ID: [id number] Author: TEVIN CARSON, DO Service: ? Author Type: Physician Type: Progress Notes Filed: 07/25/2024 16:57 Note Text: [facility] Medicine Visit Assessment and Plan 1. Bipolar [...] appointment. She is scheduled to see a employment advisor at for this. ROS: As per HPI. [...] Mood and Affect: Mood normal. Behavior: Behavior normal.[facility]11-11-2024 History of Present illness Narrative* Tevin Carson DO - 07/25/2024 3:07 PM EST [facility] Medicine Visit Assessment and Plan 1. Bipolar [...] appointment. She is scheduled to see a employment advisor at for this. ROS: As per HPI. [...] normal. Behavior: Behavior normal. documented in this encounterGuernsey Memorial Hospital11-08-2024 Telephone encounter Note * Telephone Encounter - Tevin Carson DO - 07/22/2024 12:27 PM EST Agree with in office evaluation, needs to go to ED if symptoms worsen Tevin Carson DO [facility] Work Phone: 1(601) 182-823011-08-2024 Miscellaneous Notes* Telephone Encounter - Tevin Carson [...] s/p hyster Protocols used: Anxiety and Panic Ywnemh-UPCFM-NZ Request/Response - Patient scheduled for ThursdayJul [address] Carson (20 minutes). Patient is alsoscheduled for 40 minutes on ThursdayJul [address] Carson. I did not cancel the Thursday appt in case a 40 min follow up would be appropriate. Please advise if needed. documented in this encounterGuernsey Memorial Hospital11-08-2024 Telephone encounter Note * Telephone Encounter [...] s/p hyster Protocols used: Anxiety and Panic Vagwtr-PRBQG-IM Request/Response - Patient scheduled for ThursdayJul [address] Carson (20 minutes). Patient is alsoscheduled for 40 minutes on ThursdayJul [address] Carson. I did not cancel the Thursday appt in case a 40 min follow up would be appropriate. Please advise if needed. [facility]11-08-2024 Telephone encounter Note* Telephone Encounter - Hilda Lemos RN - 07/22/2024 11:34 AM EST See nurse triage encounter. [facility]11-08-2024 Miscellaneous Notes* Telephone Encounter - Hilda Lemos RN - 07/22/2024 11:34 AM EST See nurse triage encounter. documented in this encounterGuernsey Memorial Hospital10-28-2024 Instructions* Patient Education - Ev Lindsey RT(Keshav) - 07/11/2024 9:29 AM EDT Post procedure written instructions were given to patient. [facility]10-28-2024 Miscellaneous Notes* Patient Education - Ev Lindsey RT(R) - 07/11/2024 9:29 AM EDT Post procedure written instructions were given to patient. documented in this encounterGuernsey Memorial Hospital10-28-2024 NoteHNO ID: [id number] Author: EV LINDSEY RT(R) Service: Radiology Author Type: Six Horse Hitch Driver Type: Patient Education Filed: 07/11/2024 09:29 Note Text: Post procedure written instructions were given to patient.[facility]10-21-2024 History of Present illness Narrative* Omar [...] PATIENT PRESENTS WITH AN IMPLANTABLE OR ATTACHED VOICE OVER ANNOUNCER: No RADIOLOGY DEPARTMENT: Mammography PERIPHERAL IV DATA: Not applicable SIGNED BY: Stewart Brewer July 04, 2024 12:32 PM documented in this encounterGuernsey Memorial Hospital10-21-2024 NoteHNO ID: [id number] Author: OMAR SOLIMAN Mammo Tech Service: ? Author Type: Six Horse Hitch Driver Type: Progress Notes Filed: 07/04/2024 12:32 Note [...] PATIENT PRESENTS WITH AN IMPLANTABLE OR ATTACHED VOICE OVER ANNOUNCER: No RADIOLOGY DEPARTMENT: Mammography PERIPHERAL IV DATA: Not applicable SIGNED BY: Omar Soliman [employer] July 04, 2024 12:32 [facility]10-21-2024 NoteHNO ID: [id number] Author: FATUMA TYLER APRN.PYRIDINE RECOVERY OPERATOR Service: ? Author Type: Nurse Practitioner Type: Progress Notes Filed: 07/06/2024 08:25 Note Text: MEDICAL BREAST PATIENT NAME: Shazia Chou July 04, 2024 REFERRAL: She is self referred for an opinion regarding regarding LEFT breast painful lump and bloody nipple discharge HISTORY of PRESENT ILLNESS: Shazia Chou is a 33 year old premenopausal female who [facility] today for evaluation of [...] Test performed by chemiluminescent immunoassay. Performed at [facility],[address],[place] [address] She takes a multivitamin daily. BMD: No PERSONAL BREAST HISTORY: Breast biopsy: No Breast cysts: No Breast surgery: No Breast cancer: No CANCER SURVEILLANCE: Mammograms: Date in [facility]: 12/09/23; results - Negative-Left breast only Breast MRI: Date in [facility]: 06/10/22; results - Negative Colonoscopy: [...] discussed with the Patient or Patient's Authorized Online Advertising Manager. As applicable, any other physician, advance practice provider, medical student, or other health professional student that will be observing or involved in (more content not included)...[facility]10-21-2024 History of Present illness Narrative* Fatuma Tyler APRN.PYRIDINE RECOVERY OPERATOR - 07/04/2024 10:52 AM EDT MEDICAL BREAST PATIENT NAME: Shazia Chou July 04, 2024 REFERRAL: She is self referred for an opinion regarding regarding LEFT breast painful lump and bloody nipple discharge HISTORY of PRESENT ILLNESS: Shazia Chou is a 33 year old premenopausal female who presents to the [facility] today for evaluation of [...] Test performed by chemiluminescent immunoassay. Performed at [facility],[address] [place] [address] She takes a multivitamin daily. BMD: No PERSONAL BREAST HISTORY: Breast biopsy: No Breast cysts: No Breast surgery: No Breast cancer: No CANCER SURVEILLANCE: Mammograms: Date in [facility]: 12/09/23; results - Negative-Left breast only Breast MRI: Date in [facility]: 06/10/22; results - Negative Colonoscopy: [...] discussed with the Patient or Patient's Authorized Online Advertising Manager. Asapplicable, any other physician, advance practice provider, medical student, or other health professional student that will be observing or involved in the sensitive examination for educational or training purposes was discussed with the Patient or Authorized Online Advertising Manager. The Patient or Authorized Online Advertising Manager has agreed to proceed with the [...] which included preparing to see the patient, thlg-fc-sxqp patient care, completing clinical documentation, obtaining and/or reviewing separately obtained history, performing a medically appropriate examination, counseling and educating the patient/family/caregiver, ordering medications, tests, or procedures, and communicating results to the patient/family/caregiver. Fatuma Tyler APRN.CNP Medical Breast Specialist July 04, 2024 CC: Tevin Carson [id number] [place] [id number] documented in this encounterGuernsey Memorial Hospital10-21-2024 Instructions* Patient Instructions* Naldo Borrego MA [...] CNP, Medical Breast Specialist Sofia Shelton, MARCO [phone] ([place]) Naldo Borrego, Box Order Person [phone] ([place]) documented in this encounterGuernsey Memorial Hospital10-18-2024 Instructions* Patient Instructions* Tevin Carson DO [...] me in 1 month documented in this encounterGuernsey Memorial Hospital10-18-2024 NoteHNO ID: [id number] Author: TEVIN CARSON DO Service: ? Author Type: Physician Type: Progress Notes Filed: 07/01/2024 12:18 Note Text: [facility] Family Medicine Visit Assessment and Plan [...] rhythm with sinus arrhythmia at 73 BPM, ID interval 138 ms, normal QRS, poor quality [...] Cognition and Memory: Cognition normal. Comments: Slightly anxiousMercy Health St. [facility]10-18-2024 History of Present illness Narrative* Carson, DO Tevin - 07/01/2024 11:03 AM EDT [facility] Family Medicine Visit Assessment and Plan [...] rhythm with sinus arrhythmia at 73 BPM, ID interval 138 ms, normal QRS, poor quality [...] normal. Comments: Slightly anxious documented in this encounterGuernsey Memorial Hospital10-18-2024 Telephone encounter Note * Telephone Encounter - Naldo Borrego MA - 07/01/2024 10:23 AM EDT Shazia returned my call from yesterday about her appointment on Thursday. Patient stated that she had a mammogram and US done at [facility] recently because she felt a lump [...] to one anotheror not. 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 I asked her to arrive 30 minutes early to appointment so that we can start uploading the disk and she can fillout paperwork. She was appreciative for the call and information. Naldo Borrego MA [facility]10-18-2024 Miscellaneous Notes* Telephone Encounter - Naldo Borrego MA - 07/01/2024 10:23 AM EDT Shazia returned my call from yesterday about her appointment on Thursday. Patient stated that she had [facility] recently because she felt a lump in [...] to one anotheror not. 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 I asked her to [...] me. Naldo Borrego MA documented in this encounterGuernsey Memorial Hospital10-17-2024 Telephone encounter Note * Telephone Encounter - Naldo Borrego MA - 06/30/2024 2:43 PM EDT I called and left a message for the patient regarding her appointment 07/04 [address] Mrs[address] Tyler in the breast center. I left my contact information for her to reach me. Naldo Borrego MA [facility]09-16-2024 NoteHNO ID: [id number] Author: ORLANDO MARTINEZ MA Service: ? Author Type: Box Order Person Type: Progress Notes Filed: 05/30/2024 13:52 Note Text: POPULATION HEALTH NAVIGATION OUTREACH Action/FYI Patient called back and I scheduled her for a ED follow up with PYRIDINE RECOVERY OPERATOR in office. Also scheduled patient for est care appointment. Updated PCP field PER Navigation rules. ACM Reason for Outreach Community Monitoring/Network Navigator Pools AND Phone Line: ACM Patient Contacted: Spoke to patient/parent/or legal guardian Patient identified by name and : Yes Community Monitoring/Network Navigator Pools AND Phone Line actions taken: Patient scheduled: ER Follow-up Establish Care Appointment 05/31/2024 in [facility] with LISHA BIANCHI - ED follow up 07/01/2024 in [facility] with TEVIN CARSON - est care 08/05/2024 in [facility] with ROBERTO MCKEON - Fhx of pancreatic cancer, Phx of pancreatic mass Action taken: Marked in OnBase for Schedulers PCP field updated Navigation Signature: Orlando Martinez MA May 30, 2024 1:44 [facility]09-16-2024 History of Present illness Narrative* Orlando Martinez MA - 05/30/2024 1:37 PM EDT POPULATION HEALTH NAVIGATION OUTREACH Action/FYI Patient called back and I scheduled her for a ED follow up with PYRIDINE RECOVERY OPERATOR in office. Also scheduled patient for est care appointment. Updated PCP field PER Navigation rules. ACM Reason for Outreach Community Monitoring/Network Navigator Pools & Phone Line: ACM Patient Contacted: Spoke to patient/parent/or legal guardian Patient identified by name and : Yes Community Monitoring/Network Navigator Pools & Phone Line actions taken: Patient scheduled: ER Follow-up Establish Care Appointment 05/31/2024 in [facility] with LISHA BIANCHI - ED follow up 07/01/2024 in [facility] with TEVIN CARSON - est [...] patient to Network Navigation to schedule a [facility] ED 05/23/24 PCP follow-up appointment. Thank you 1st attempt- Called and left a voicemail for patient to call me back directly. CinemaKit message sent Postponing for 2 days. ACM Reason for Outreach Community Monitoring/Network Navigator Pools & Phone Line: AC Patient Contacted: Unable or unnecessary to reach patient: Left message INWEBTURE Limitedhart message sent Navigation Signature: Orlando Martinez MA [...] patient to Network Navigation to schedule a [facility] ED 05/23/24 PCP follow-up appointment. Thank you Exclusion Criteria - Does not meet exclusion criteria ED DIAGNOSES/REASON(S) FOR ED USE: [facility] OTHER FINDINGS/SUMMARY: Unable to locate ED discharge summary in Care everywhere Patient Attributed To: KERMIT Payer: Mauricio HAMMOND Action Taken: Referrals/Routed: Population Health Navigation: Appointment. Router to COMMUNITY MONITORING PSS POOL [[phone]] Contact made with patient: No, Chart review only. Signature: Lenora KHALIL, RN, [facility] Primary Care Transitional Bag Loader Machine Operator [facility] [phone] documented in this encounterGuernsey Memorial Hospital09-16-2024 NoteHNO ID: [id number] Author: ORLANDO MARTINEZ MA Service: ? Author Type: Box Order Person Type: Progress Notes Filed: 05/30/2024 13:07 Note Text: POPULATION HEALTH NAVIGATION OUTREACH Action/FYI Reason for review or outreach: Chart Review Edyta Priority Emergency Department Utilization REQUESTED ACTION/FYI: Please see ED Utilization summary below: A follow-up appointment is not noted in patient's record. We are forwarding this patient to Network Navigation to schedule a [facility] ED 05/23/24 PCP follow-up appointment. Thank you 1st attempt- Called and left a voicemail for patient to call me back directly. CinemaKit message sent Postponing for 2 days. [facility] Reason for Outreach Community Monitoring/Network Navigator Pools AND Phone Line: AC Patient Contacted: Unable or unnecessary to reach patient: Left message Heckyl message sent Navigation Signature: Orlando Martinez MA May 30, 2024 1:01 [facility]09-16-2024 NoteHNO ID: [id number] Author: LENORA YEE RN Service: ? Author [...] patient to Network Navigation to schedule a [facility] ED 05/23/24 PCP follow-up appointment. Thank you Exclusion Criteria - Does not meet exclusion criteria ED DIAGNOSES/REASON(S) FOR ED USE: [facility] OTHER FINDINGS/SUMMARY: Unable to locate ED discharge summary in Care everywhere Patient Attributed To: KERMIT Payer: Mauricio HAMMOND Action Taken: Referrals/Routed: Population Health Navigation: Appointment. Router to [facility] [[id number]] Contact made with patient: No, Chart review only. Signature: Lenora KHALIL, RN, [facility] Primary Care Transitional Bag Loader Machine Operator [facility] [phone] [facility] [address] NotePatient Outreach (AMBCMG) SHAZIA CHOU ([id number]) 1990 F Date Time Provider Department 05/30/24 [...] patient to Network Navigation to schedule a [facility] ED 05/23/24 PCP follow-up appointment. Thank you Exclusion Criteria - Does not meet exclusion criteria ED DIAGNOSES/REASON(S) FOR ED USE: [facility] OTHER FINDINGS/SUMMARY: Unable to locate ED discharge summary in Care everywhere Patient Attributed To: E Payer: Mauricio HAMMOND Action Taken: Referrals/Routed: Population Health Navigation: Appointment. Router to COMMUNITY MONITORING PSS POOL [[id number]] Contact made with patient: No, Chart review only. Signature: Lenora Yee MSN, RN, [facility] Primary Care Transitional Bag Loader Machine Operator [facility] [phone] Orlando Martinez MA 05/30/2024 1:07 PM Addendum POPULATION HEALTH NAVIGATION OUTREACH Action/FYI Reason for review or outreach: Chart Review Edyta Priority Emergency Department Utilization REQUESTED ACTION/FYI: Please see ED Utilization summary below: A follow-up appointment is not noted in patient's record. We are forwarding this patient to Network Navigation to schedule a [facility] ED 05/23/24 PCP follow-up appointment. Thank you 1st attempt- Called and left a voicemail for patient to call me back directly. CinemaKit message sent Postponing for 2 days. ACM Reason for Outreach Community Monitoring/Network Navigator Pools AND Phone Line: ACM Patient Contacted: Unable or unnecessary to reach patient: Left message INWEBTURE Limitedhart message sent Navigation Signature: Orlando Martinez MA May 30, 2024 1:01 PM Orlando Martinez MA 05/30/2024 1:52 PM Addendum POPULATION HEALTH NAVIGATION OUTREACH Action/FYI Patient called back and I scheduled her for a ED follow up with PYRIDINE RECOVERY OPERATOR in office. Also scheduled patient for est care appointment. Updated PCP field PER Navigation rules. ACM Reason for Outreach Community Monitoring/Network Navigator Pools AND Phone Line: ACM Patient Contacted: Spoke to patient/parent/or legal guardian Patient identified by name and : Yes Community Monitoring/Network Navigator Pools AND Phone Line actions taken: Patient scheduled: ER Follow-up Establish Care Appointment 05/31/2024 in [facility] with LISHA BIANCHI - ED follow up 07/01/2024 in [facility] with TEVIN CARSON - est [...] - Swelling Date Reviewed: 03/08/2024 Reviewed by: Soifa Benavidez RN - Fully Assessed Reason for Visit: ACM EDYTA RN [[id number]] Cmt: ED Utilization review per request of [...] mg by mouth daily at bedtime. - iyoaergozvbh-iuv-rgnf-FA-vit K (BARIATRIC MULTIVITAMINS) 45 mg iron- 800 mcg-120 mcg cap Take by mouth. Problem List As Of Date 05/30/2024 Noted Resolved Poor growth, affecting management of moth*07/03/2008 03/08/2024 Idiopathic intracranial hypertension [G93.2] 11/20/2022 Primary hypertension [I10] 11/20/2022 03/08/2024 Depression [F32.A] 11/20/2022 Hx of gastric bypass [Z98.84] 11/20/2022 H/O foot surgery [Z98.890] 11/20/2022 Bipolar affective d (more content not included)...[facility] 05-12-2024 NoteHNO ID: [id number] Author: ?, ?, ? Service: ? Author Type: ? Type: Progress Notes Filed: 05/12/2024 17:42 Note Text: MCM sent to pt advising her that her Breast MRI has still not been scheduled. Pancreas was completed. Kimberli Malave [facility]08-13-2024 History of Present illness Narrative* Lauren Capellan LPN - 04/26/2024 3:43 PM EDT Outreach message sent documented in this encounterGuernsey Memorial Hospital08-13-2024 NoteHNO ID: [id number] Author: LAUREN CAPELLAN LPN Service: ? Author Type: LICENSED NURSE Type: Progress Notes Filed: 04/26/2024 15:43 Note Text: Outreach message sentMer[facility] Health St. [facility] NotePatient Outreach (FPLILIANMOC) SHAZIA CHOU ([id number]) 1990 F Date Time Provider Department 04/26/24 ELIA BAIRESMOC During your visit today, we recorded the following information about you: Lauren CapellanMAGDIEL 04/26/2024 3:43 PM Signed Outreach message sent [...] mg by mouth daily at bedtime. - okurbpfujstb-mzt-wpbr-FA-vit K (BARIATRIC MULTIVITAMINS) 45 mg iron- 800 [...] 03/08/2024 Encounter Status:Closed by LAUREN CAPELLAN on 04/26/24[facility] Hospital Discharge instructions Patient Education [...] Follow these instructions at home: Medicines Take alxg-ccr-bzhhnhh and prescription medicines only as told by your health care provider. Ask your health care provider if the medicine prescribed to you: ?Requires you to avoid driving or using heavy machinery. ?Can cause constipation. You may need to take these actions to prevent or treat constipation: ?Drink enough fluid to keep your urine pale yellow. ?Take mmwe-tkd-mxihxgj or prescription medicines. ?Eat foods that are [...] provider. Document Revised: 12/08/2022 Document Reviewed: 01/24/2020 [employer] Patient Education 2022 [employer] 03/08/2024 15:36:59 Head Injury, Adult Head Injury, [...] Ask your health care provider for a bldr-el-dxye plan for gradually returning to activities. Ask [...] your friends, family, a trusted colleague, and marquetry worker about your injury, symptoms, and restrictions. Have them watch for any new or worsening problems. General instructions Take rtsh-nsd-qmvupxq and prescription medicines only as told by [...] provider. Document Revised: 07/13/2020 Document Reviewed: 07/13/2020 [employer] Patient Education 2022 [employer] 03/08/2024 15:36:59 Muscle Strain Muscle Strain A [...] is not too tight. General instructions Take tgyc-rix-llpbddp and prescription medicines only as told by [...] provider. Document Revised: 11/18/2021 Document Reviewed: 11/18/2021 [employer] Patient Education 2022 [employer] Follow Up Care 03/08/2024 13:07:25 With:David Zazueta Address: [address], [address] [place] [phone] Business (1) When:03/11/2024 15:24:14 With:Jennie Durand Address: [address] [place] [address]- Business (1) When:Within 3 Day(s) [facility]06-25-2024 History of Present illness Narrative* Sofia Benavidez [...] 2024 TIME: 10:01 AM * Mirlande Diaz, microbiology professor - 03/08/2024 10:00 AM EDT Radiology Service [...] PATIENT PRESENTS WITH AN IMPLANTABLE OR ATTACHED VOICE OVER ANNOUNCER: No RADIOLOGY DEPARTMENT: MR; Exam(s) Completed: Body: Pancreas/Biliary PERIPHERAL IV DATA: Site assessment: Clean,Dry and Intact, Site disposition Discontinued SIGNED BY: MARIXA Tovar March 08, 2024 10:35 AM documented in this encounterGuernsey Memorial Hospital06-25-2024 NoteHNO ID: [id number] Author: MIRLANDE DIAZ MRI Tech Service: Radiology Author Type: Six Horse Hitch Driver Type: Progress Notes Filed: 03/08/2024 10:36 Note [...] PATIENT PRESENTS WITH AN IMPLANTABLE OR ATTACHED VOICE OVER ANNOUNCER: No RADIOLOGY DEPARTMENT: MR; Exam(s) Completed: Body: Pancreas/Biliary PERIPHERAL IV DATA: Site assessment: Clean,Dry and Intact, Site disposition Discontinued SIGNED BY: MARIXA Tovar Tech March 08, 2024 10:35 [facility]06-25-2024 NoteHNO ID: [id number] Author: SOFIA BENAVIDEZ RN Service: Nursing Author [...] Chou DATE: March 08, 2024 TIME: 10:01 [facility]06-25-2024 Instructions* Patient Instructions* Elia Baires DO - 03/08/2024 8:47 AM EDT 1) Schedule appointment with Austin Mata to discuss Adipex. 2) Schedule MRI of breast 3) I can refill the klonopin as needed. 4) Try steroid as needed twice daily 5) Follow-up in [address] Carson to establish care documented in this encounterGuernsey Memorial Hospital06-25-2024 NoteHNO ID: [id number] Author: ELIA BAIRES DO Service: ? Author [...] was able to establish with psychiatry at [facility]. Says they stopped her Rexulti and switch to Lamictal 75 mg daily. Says this has dramatically improved her symptoms. Currently taking duloxetine 60 mg twice daily and trazodone 50 mg at bedtime. She says that she has only needed to use her clonazepam a few times a week. H (more content not included)...[facility]06-25-[facility] History of Present illness Narrative* Elia Baires, - 03/08/2024 8:16 AM EDT ASSESSMENT/PLAN: 1. [...] was able to establish with psychiatry at [facility]. Says they stopped her Rexulti and [...] updated today in the History tab of [facility]. REVIEW OF SYSTEMS: All other reviewed [...] Dr. Elia Baires DO documented in this encounterGuernsey Memorial Hospital04-22-2024 Instructions* Patient Instructions* Elia Baires DO - 01/04/2024 10:16 AM EDT 1) Give urine sample today. 2) Placed lab orders. Fast for 12 hours then get labs. 3) I would follow-up with your psychiatrist in January 4) Physical in 1-2 months. documented in this encounterGuernsey Memorial Hospital04-22-2024 NoteHNO ID: [id number] Author: ELIA BAIRES DO Service: ? Author [...] She says that she is originally from [facility] however came up to here today [...] to establish with a new psychiatrist at [facility] in [place]. She also sees a counselor weekly. Current [...] No psychosis or maryam. Dr. Elia Baires, [facility]04-22-2024 History of Present illness Narrative* Elia Baires, [...] She says that she is originally from [facility] however came up to here today [...] to establish with a new psychiatrist at [facility] in [place]. She also sees a counselor weekly. Current medication regimen is duloxetine 60 mg twice daily, Rexulti 4 mg daily, trazodone 50 mg nightly. She denies use of illegal drugs. Says that she was prescribed lorazepam at her recent ED visit. Shealso endorses use of cannabis. Hx of intracranial [...] Dr. Elia Baires DO documented in this encounterGuernsey Memorial Hospital01-05-2024 Hospital Discharge instructions* Discharge Instructions* Gamaliel [...] questions, PLEASE call your doctor or the [facility] at documented in [facility] encounterB[facility] History of Present illness Narrative* Ce Bustamante RN - 09/16/2023 1:25 PM EST PAT phone call for /EGD completed with pt. Date/time/location (entrance C) of surgery/procedure verified with pt. NPO after MN status verified with pt. 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 Instructed pt to take a shower the AM of surgery/procedure and to avoid lotions, creams, jewelry. Encouraged pt to avoid artificial nails and/or nailpolish. Instructed pt to take BP meds with a small sip of water prior to procedure/surgery. documented in [facility]* Encounter Date Diagnosis Assessment Notes Treatment Notes Treatment Clinical Notes Jul, Pancreatic cyst (ICD-10 - K86.2) [email or web address] Other 10-25-2023 Evaluation note* Encounter Date Diagnosis [...] stop smoking. Jun, Smoker (ICD-10 - F17.200) [email or web address] Other 09-27-2023 NoteHNO ID: [id number] Author: Eileen Alvarez MD Service: ? Author Type: Physician Type: Progress Notes Filed: 06/10/2023 3:39 PM Note Text: [facility] Follow Up / Established Virtual Visit I have communicated my name and active licensure. The patient's identity and physical location were verified at the time of this visit. Either the patient or their legal loss control representative has been informed of the risks [...] due to congenital deformity, seen in the [facility] for: [...] due to congenital deformity, seen in the [facility] for: [...] she agreed. She needs to follow with internal combustion engine assembler every 6 months. In some patients with [...] her eyes. She has never seen an internal combustion engine assembler. CSF protein 24, Glu 55, Pro 28, [...] cognition, memory, speech. Cr (more content not included)...[facility] [id number] Miscellaneous Notes * Telephone Encounter - Clara [...] DAY IN A WEEK Pharmacy Name: [facility] Pharmacy Phone #: [phone] Fabby Cassidy documented in this encounterGuernsey Memorial Hospital07-06-2023 Evaluation + Plan note Diagnostic Tests Pending * Zinc Level 03/19/23 * PTH Intact 03/19/23 * Vitamin A Level 03/19/23 * Vitamin B1 03/19/23 Future Scheduled Tests Laboratory* CBC w/ Auto Diff 07/21/22 Radiology* MA Mamm Screen w/CAD if perf and 3D Tanmay 04/21/22 [facility]05-04-2023 Hospital Discharge instructions Patient Education 01/15/2023 13:37:29 [...] Follow these instructions at home: Medicines Take safm-iul-wmuyqpx and prescription medicines only as told by [...] provider. Document Revised: 11/14/2021 Document Reviewed: 11/14/2021 [employer]ix Patient Education 2022 [employer] Follow Up Care 01/15/2023 10:48:45 With:Jennie Durand Address: [address] [place] [address]- Business (1) When:01/18/2023 13:32:37 [facility]05-04-2023 Evaluation + Plan noteExtracted from: Title:ED Note Author:Monse GERONIMO, Beto Hodgson te:01/15/23 Chest pain (R07.9: Chest suraj n, [...] if perf and 3D Tanmay 04/21/22 [facility]03-31-2023 Miscellaneous Notes* Telephone Encounter - Clara Durbin RN - 12/12/2022 3:03 PM EDT Spoke with patient and informed that per [facility] pharmacy, there are remaining [...] DAY IN A WEEK Pharmacy Name: [facility] Pharmacy Phone #: [phone] Fabby Cassidy documented in this encounterGuernsey Memorial Hospital03-24-2023 Hospital Discharge instructions Patient Education 12/05/2022 12:15:12 Post Op Patient Instructions - ALANNA (CUSTOM) 12/05/2022 12:15:12 EPIC APPLICATION COORDINATOR - Post Hysterectomy/Laparotomy/Major Surgery-Thiago (CUSTOM) Instructions post [...] Das Address: [address] [place] [address] Business (1) When:6 weeks With:Gal Das Address: [address] [place] [address] Business (1) When:2 weeks Comments:Call for any problems. [facility]03-24-2023 Evaluation + Plan noteExtracted from: Title:ANES Post-operative Note - General Author: Vu Maria Jr., DO Date:12/05/22 Plan Transfer/Discharge: Transfer/Discharge Discharge when meets criteria ( From PACU to Ambulatory Surgery Unit, and To home ). Extracted from: Title:ANES Pre-operative Note - Adult Author:Vu Chowdhury Jr., DO Date:12/05/22 Plan [place] [employer] of Anesthesiologists (ASA) physical status classification: Class II. Anesthetic Preoperative Plan: Anesthesia General. Future Appointments Appointment Date:01/02/2023 10:00:00 AM Scheduled Provider:Nakia Shah Location:[facility] Appointment Type: Open Future Scheduled Tests Laboratory* CBC w/ Auto Diff 07/21/22 Radiology* MA Mamm Screen w/CAD if perf and 3D Tanmay 04/21/22 [facility]03-09-2023 NoteHNO ID: [id number] Author: Eileen Alvarez MD Service: ? 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 She has never seen an internal combustion engine assembler. CSF protein 24, Glu 55, Pro 28, [...] due to congenital deformity, seen in the [facility] for: [...] she agreed. She needs to follow with internal combustion engine assembler every 6 months. In some patients with [...] --start acetazolamide (diamox 500m (more content not included)...[facility] [id number] Instructions* Patient Instructions* Eileen Alvarez MD - [...] up in 2-4 months documented in this encounterGuernsey Memorial Hospital03-09-2023 History of Present illness Narrative* Eileen Alvarez MD - 11/20/2022 7:57 AM EST Images from the original note were not included. [facility] New [...] due to congenital deformity, seen in the [facility] for: [...] her eyes. She has never seen an internal combustion engine assembler. CSF protein 24, Glu 55, Pro 28, [...] Assessment & Plan 11/20/2022 - General Neurology, iEleen Alvarez MD ASSESSMENT Shazia Chou is a 31 year old R handed female w PMH HTN, depression, recently diagnosed idiopathic intracranial hypertension, EtOH drinking, H gastric bypass surgery w 100lb weight loss, H of footsurgery due to congenital deformity, seen in the [facility] for: [...] she agreed. She needs to follow with internal combustion engine assembler every 6 months. In some patients with [...] Take 40 mg by mouth once daily. lgyneilsqovm-vzd-xugy-FA-vit K (BARIATRIC MULTIVITAMINS) 45 mg iron- 800 [...] % Lymph% 20 15.9 - 47.3 % [place]% 6 0.0 - 12.0 % Eosin% 3 0.0 - 6.6 % Baso% 1 0.0 - 1.2 % Abs Neut (ANC) 7.64 (H) 1.45 - 7.50 k/uL Abs Lymph 2.18 1.00 - 4.00 K/uL Abs [place] 0.65 0.00 - 0.86 k/uL Abs Eosin [...] which included preparing to see the patient, yrjl-wm-fwhv patient care, completing clinical documentation, obtaining and/or reviewing separately obtained history, performing a medically appropriate examination, counseling and educating the pat ient/family/caregiver, ordering medications, tests, or procedures, independently interpreting results (not separately reported), communicating results to the patient/family/caregiver, and care coordination (not separately reported). Eileen Alvarez MD documented in this encounterGuernsey Memorial Hospital02-20-2023 Hospital Discharge instructions Patient Education [...] height. This can be done either in [place] ([place] or metric measurements. Note that charts are available to help you find your BMI quickly and easily without having to do these calculations yourself. To calculate your BMI in [place] ([place] measurements, your health care provider will: [...] medical problems. BMI can be measured using Salvadorean measurements or metric measurements. To interpret your [...] 05/12/2005 Document Revised: 08/13/2018 Document Reviewed: 07/14/2018 [employer]ix Patient Education 2020 [employer] 11/03/2022 13:28:26 Tobacco Use Disorder Tobacco Use [...] reduces withdrawal symptoms. NRT is available as: ?Kidi-scq-jmoidej gums, lozenges, and skin patches. ?Prescription mouth [...] recovery for many people. General instructions Take ffmk-cjr-upopmhp and prescription medicines only as told by your health care provider. Check with your health care provider before taking any new prescription or hjaq-kzn-ugvggot medicines. Decide on a friend, family member, or smoking quit-line (such as 8-049-AIXB-NOW in the [place] that you can call [...] 05/06/2005 Document Revised: 08/18/2018 Document Reviewed: 08/18/2018 [employer]ix Patient Education 2020 [employer] 11/03/2022 13:28:23 Alcohol Abuse and Dependence Information, [...] for Disease Control and Prevention: www.cdc.gov National [place] on Alcohol Abuse and Alcoholism: www.niaaa.nih.gov Alcoholics [...] 08/25/2017 Document Revised: 12/20/2019 Document Reviewed: 11/08/2019 [employer]ix Patient Education 2019 [employer] 11/03/2022 13:28:19 BMI for Adults BMI for [...] height. This can be done either in [place] or metric measurements. Note that charts are available to help you find your BMI quickly and easily without having to do these calculations yourself. To calculate your BMI in [place] ([place] measurements, your health care provider will: [...] medical problems. BMI can be measured using Salvadorean measurements or metric measurements. To interpret your [...] 05/12/2005 Document Revised: 08/13/2018 Document Reviewed: 07/14/2018 Etix Patient Education 2020 [employer] Inc. 10/27/2022 11:56:27 Alcohol Abuse and Dependence [...] for Disease Control and Prevention: www.cdc.gov National [place] on Alcohol Abuse and Alcoholism: www.niaaa.nih.gov Alcoholics [...] 08/25/2017 Document Revised: 12/20/2019 Document Reviewed: 11/08/2019 Etix Patient Education 2020 [employer] Follow Up Care 10/15/2022 11:28:56 With:Nakia Shah Address: [address] [place] [address] [facility] [place] [address]- When:Within 2 Month(s) Comments:f/u smoking cessation and BP [facility] 01-11-2023 Hospital Discharge instructions [...] reduces withdrawal symptoms. NRT is available as: ?Tsnt-idp-jugyfgi gums, lozenges, and skin patches. ?Prescription mouth [...] recovery for many people. General instructions Take qaqr-qpx-zxmyfjc and prescription medicines only as told by your health care provider. Check with your health care provider before taking any new prescription or tanb-hnj-picayud medicines. Decide on a friend, family member, or smoking quit-line (such as 6-461-EDON-NOW in the [place] that you can call [...] 05/06/2005 Document Revised: 08/18/2018 Document Reviewed: 08/18/2018 Bryan Patient Education 2020 [employer] 09/24/2022 07:23:47 BMI for Adults BMI for [...] height. This can be done either in [place] ([place] or metric measurements. Note that charts are available to help you find your BMI quickly and easily without having to do these calculations yourself. To calculate your BMI in [place] ([place] measurements, your health care provider will: [...] medical problems. BMI can be measured using [place] measurements or metric measurements. To interpret your [...] 05/12/2005 Document Revised: 08/13/2018 Document Reviewed: 07/14/2018 Etix Patient Education 2020 [employer]. 09/24/2022 07:23:45 Alcohol Use Disorder Alcohol [...] centers. Follow these instructions at home: Take kovf-yrl-ffidnlt and prescription medicines only as told by [...] 10/08/2005 Document Revised: 08/13/2018 Document Reviewed: 05/28/2017 [employer]ix Patient Education 2020 [employer] 09/24/2022 07:23:42 Borderline Personality Disorder, Adult Borderline [...] with BPD should do these things: Take uqtx-pbu-udctatg and prescription medicines only as told by [...] important. Where to find more information National [place] on Mental Illness: www.marivel.org [place] National [place] of Mental Health: www.nimh.nih.gov Contact a health [...] 12/16/2011 Document Revised: 08/13/2018 Document Reviewed: 11/05/2017 [employer]ix Patient Education 2020 [employer] 09/24/2022 07:23:39 Managing Bipolar Disorder Managing Bipolar [...] Follow these instructions at home: Medicines Take ephw-rjn-dkeftpa and prescription medicines only as told by your health care provider or pharmacist. Ask your pharmacist what sdwp-rtr-vwbgdxr cold medicines you should avoid. Some medicines [...] services is a problem, search for a [facility] or [facility] mental health care center. Public mental [...] 12/31/2017 Document Revised: 12/23/2019 Document Reviewed: 12/31/2017 Etix Patient Education 2019 [employer] Follow Up Care 09/16/2022 13:23:11 With:Aimee Walker CNP Address: [address] [place], [place] [address]jacqueline [place] [address] [phone] When:3 months [facility] 12-09-2022 Hospital Discharge instructions Patient Education 08/22/2022 11:12:56 Tension Headache, Adult, Epyz-tp-Mmgp Tension Headache, Adult A tension headache is pain, pressure, or aching in your head. Tension headaches can last from 30 minutes to several days. Follow these instructions at home: Managing pain Take odui-ytg-txrefws and prescription medicines only as told by [...] 11/25/2010 Document Revised: 08/13/2018 Document Reviewed: 12/11/2017 Etix Patient Education 2020 [employer] Follow Up Care 08/14/2022 12:38:29 With:Rita SNOWDEN, IGGY Roberson, PED Address: [address] [place] [address] [place] [address] When:1 month only if needed Comments:40 mins [facility] 12-05-2022 Hospital Discharge instructions [...] feet clean and dry. General instructions Take bpnu-egr-wysluzm and prescription medicines only as told by [...] 09/26/2016 Document Revised: 06/16/2019 Document Reviewed: 06/16/2019 Etix Patient Education 2020 [employer] 08/18/2022 19:56:48 Foot Sprain Foot Sprain A [...] fully hardened. This may takeseveral hours. Take anrf-wbs-nwhdcxm and prescription medicines only as told by [...] 02/20/2003 Document Revised: 09/04/2018 Document Reviewed: 09/04/2018 [employer]ix Patient Education 2020 [employer] 08/18/2022 19:56:48 Elastic Bandage and RICE Therapy [...] limityour activities and whether you should start ljhdg-yf-yymqxg exercises for your injury. Ice Ice your [...] 02/20/2003 Document Revised: 05/21/2018 Document Reviewed: 05/21/[address]. Follow Up Care 08/18/2022 17:21:15 With:Hilton Gillis Address: [address] [place], [place] [id number] Business (1) When:08/21/2022 19:10:21 With:Aimee Walker Address:Unknown When:Within 3 Day(s) [facility]11-29-2022 Procedure [facility]11-29-2022 Progress note Author Lizzeth Malave [facility] August 12, 2022 10:46am Note Date/Time August 12, 2022 10:45am [facility] [address] [place] [address] Hospitalist Progress Note Signed Patient: Shazia Chou MR#: [id number] : 1990 Acct:[id number] Age/Sex: 31 / F Adm Date: 2 Loc: 4N Room: 0A3387-6 Type: ADM INOo Attending Dr: Lizzeth Malave MD Copies to: ~ Date of Service: 08/12/2022 Subjective Subjective Narrative: Shazia Chou is a 31yo F. She was transferred here last night from [facility] with worsening headache and blurry [...] 08/11/22 22:45 Brexpiprazole 2 Mg Tablet PO 11/28/23 21:59 4 mg QHS CAITIE Administration Duloxetine HCl 60 mg 08/11/22 22:00 08/11/22 22:45 Duloxetine 60 Mg Capsule. PO 08/11/23 21:59 60 mg QHS CAITIE Administration Hydralazine HCl 10 mg 08/11/22 21:43 Hydralazine 20 Mg/Ml Vial IV-PUSH 08/11/23 21:42 Q4H PRN Hypertension Influenza Virus Vaccine Quadrival 0.5 ml 08/13/22 09:00 Flu Vac Quad (36month+)Pf 0.5 Ml Syringe [id number] IM 08/13/22 09:01 .ONCE ONE Omeprazole 20 [...] signed by Lizzeth Malave MD> 08/12/22 1046 [facility] Work Phone: 1(220) 202-196811-29-2022 Consult note Author Kenrick Lee [facility] August 12, 2022 4:21pm Note Date/Time August 12, 2022 8:13am [facility] [address] [place] [address] Neurology Consult Note Signed Patient: Shazia Chou MR#: [id number] : 1990 Acct:[id number] Age/Sex: 31 / F Adm Date: 2 Loc: 4N Room: [address] [place] [address] Type: ADM INOo Attending Dr: Lizzeth Malave MD Copies to: DO Jennie Wise ANP-C Ruta Semaskiene, MD~ HPI Consult Date: 08/12/22 Inpatient Services Director: ASTON Bro with Dr Lee Reason for consult: Headache, blurred vision Consult Narrative HPI: Patient is a 31-year-old female with medical history of bipolar, personality disorder, depression, and tobacco use in addition to 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 She has been seen in neurological consultation with request of the hospital service for headache and blurred vision. Patient initially presented to [facility] and [facility]. She was seen in the [facility] on 08/08/2022 with similar symptoms and [...] this is when she called EMS. At [facility] she had a CT scan [...] extremity from prior surgery CEREBELLAR EXAM: * Fndiyr-ve-bgfg and alternating movements are intact and normal in bilateral upper extremities * Hpyo-gr-wvqs and alternating movements are intact and normal [...] puncture based on these results. Evaluation at [facility]: * CT scan head is [...] once daily). Okay for discharge now from [facility]. Documented By: EDINSON Dias [id number] Signed By: <Electronically signed by EDINSON Niño> 08/12/22 0958 <Electronically signed by Kenrick Lee DO> 08/12/22 5798 [facility] Work Phone: 1(494) 999-195411-28-2022 History and physical note Author Sangeetha Peña [facility] August 11, 2022 9:43pm Note Date/Time August 11, 2022 9:08pm [facility] [address] [place] [address] Hospitalist H&P Signed Patient: Shazia Chou MR#: [id number] : 1990 Acct:[id number] Age/Sex: 31 / F Adm Date: 2 Loc: Room: [address] [place] [address] Type: ADM IN Attending Dr: Erin Barahona MD Copies to: MD Erin Mcwilliams MD~ HPI DATE OF EXAMINATION: 08/11/22 CHIEF COMPLAINT: Headache with blurry vision HISTORY OF PRESENT ILLNESS: Patient is a pleasant 31-year-old female with history of borderline personality disorder, bipolar disorder and depression. She was accepted by daytime hospitalist when contacted by [facility] physician due to concern for headache [...] pain or dysuria. She was [facility] on [facility] with similar symptoms. [facility]. Patient continues to [...] hypertension and patient has been transferred to [facility] for further management and neurology evaluation. Will [...] <Electronically signed by Sangeetha Peña MD> 08/11/221 [facility] Work Phone: 1(836) 519-667311-25-2022 Evaluation + Plan noteExtracted from: Title:ED Note [...] eGFR Influenza A&B Ag Rapid COVID Antigen ([facility]) UA With Cult Reflex Future Scheduled Tests Laboratory* CBC w/ Auto Diff 07/21/22 Radiology* MA Mamm Screen w/CAD if perf and 3D [place] 04/21/22 [facility]11-25-2022 Hospital Discharge instructions Patient Education 08/08/2022 11:39:38 [...] health care provider to lose weight. Take hwro-wvg-owaszgg and prescription medicines only as told by [...] 11/09/2002 Document Revised: 08/13/2018 Document Reviewed: 07/22/2017 Etix Patient Education 2020 [employer] Follow Up Care 08/08/2022 09:04:11 With:Kenrick Lee Address: [address], [place] [address] Business (1) When:08/11/2022 11:38:22 Comments:Follow-up with Dr. [...] you develop any new or worsening symptoms. [facility]11-07-2022 Evaluation + Plan note Future Scheduled Tests Laboratory* CBC w/ Auto Diff 07/21/22 Radiology* MA Mamm Screen w/CAD if perf and 3D [place] 04/21/22 [facility] 11-07-2022 Evaluation + Plan note Future Scheduled Tests Laboratory* CBC w/ Auto Diff 07/21/22 [facility]11-07-2022 Hospital Discharge instructions Patient Education 07/21/2022 11:22:36 [...] Follow these instructions at home: Medicines Take mvck-vzt-pappnlf and prescription medicines only as told by your health care provider or pharmacist. Ask your pharmacist what ibmx-org-njfuxas cold medicines you should avoid. Some medicines [...] services is a problem, search for a [facility] or [facility] mental health care center. Public mental [...] 12/31/2017 Document Revised: 12/23/2019 Document Reviewed: 12/31/2017 Etix Patient Education 2020 [employer] 07/21/2022 11:21:57 Tobacco Use Disorder Tobacco [...] reduces withdrawal symptoms. NRT is available as: ?Nfmj-loq-yivfkch gums, lozenges, and skin patches. ?Prescription mouth [...] recovery for many people. General instructions Take srnk-ano-fwjiuib and prescription medicines only as told by your health care provider. Check with your health care provider before taking any new prescription or auqi-cpf-biyinra medicines. Decide on a friend, family member, or smoking quit-line (such as 0-483-WDMB-NOW in the [place] that you can call [...] 05/06/2005 Document Revised: 08/18/2018 Document Reviewed: 08/18/2018 Etix Patient Education 2020 [employer] 07/21/2022 11:21:55 BMI for Adults BMI for [...] height. This can be done either in [place] ([place] or metric measurements. Note that charts are available to help you find your BMI quickly and easily without having to do these calculations yourself. To calculate your BMI in [place] ([place] measurements, your health care provider will: [...] medical problems. BMI can be measured using [place] measurements or metric measurements. To interpret your [...] 05/12/2005 Document Revised: 08/13/2018 Document Reviewed: 07/14/2018 Etix Patient Education 2020 [employer] 07/21/2022 11:21:53 Leukocytosis Leukocytosis Leukocytosis means that [...] Follow these instructions at home: Medicines Take jlqf-wkf-dsnhfaf and prescription medicines only as told by [...] 08/19/2012 Document Revised: 05/26/2019 Document Reviewed: 05/26/2019 Etix Patient Education 2020 [employer] Follow Up Care 07/18/2022 10:46:12 With:Aimee Walker CNP Address: When: only if needed [facility] 11-04-2022 Miscellaneous Notes* Telephone Encounter - Cat Rojo LPN - 07/18/2022 11:04 AM EDT Call placed to patient, no answer. Left message for patient to proceed with nicotine testing prior to scheduling. Please transfer to plastic surgery nurse if patient returns call with questions. documented in this [facility]Gu[facility]22 Evaluation + Plan note Future Scheduled Tests Radiology* MRI Breast w/o and w/ Contrast, Left 05/13/22 * MA Mamm Screen w/CAD if perf and 3D [place] 04/21/22 [facility] [place] 08-30-2022 Hospital Discharge instructions Patient Education 05/13/2022 [...] food choices, such as grocery stores and [employer] markets. What are the signs or symptoms? [...] and how much exercise you get. Take srim-mcs-oabdjyx and prescription medicines only as told by [...] 10/08/2005 Document Revised: 05/05/2019 Document Reviewed: 05/05/2019 Etix Patient Education 2019 [employer] [facility] [place] [id number] Evaluation + Plan note Future Scheduled Tests Radiology* MA Mamm Screen w/CAD if perf and 3D [place] 04/21/22 [facility]08-08-2022 Hospital Discharge instructions Patient Education 04/21/2022 10:14:53 [...] height. This can be done either in [place] ([place] or metric measurements. Note that charts are available to help you find your BMI quickly and easily without having to do these calculations yourself. To calculate your BMI in [place] ([place] measurements, your health care provider will: [...] medical problems. BMI can be measured using [place] measurements or metric measurements. To interpret your [...] 05/12/2005 Document Revised: 08/13/2018 Document Reviewed: 07/14/2018 Etix Patient Education 2020 [employer] 04/21/2022 10:14:51 Lymphadenopathy Lymphadenopathy Lymphadenopathy means that [...] at home: Get plenty of rest. Take khhv-lnw-ekssvjs and prescription medicines only as told by your health care provider. Your health care provider may recommend rmjp-hnb-ggjdbdp medicines for pain. If directed, apply heat [...] 06/09/2009 Document Revised: 08/13/2018 Document Reviewed: 07/16/2018 Etix Patient Education 2020 [employer] 04/21/2022 10:14:49 Tobacco Use Disorder Tobacco Use [...] reduces withdrawal symptoms. NRT is available as: ?Lixd-ikx-uabqnky gums, lozenges, and skin patches. ?Prescription mouth [...] recovery for many people. General instructions Take hoye-wam-dognrry and prescription medicines only as told by your health care provider. Check with your health care provider before taking any new prescription or xugo-kmw-xswnygr medicines. Decide on a friend, family member, or smoking quit-line (such as 1-377-SNSP-NOW in the [place] that you can call [...] 05/06/2005 Document Revised: 08/18/2018 Document Reviewed: 08/18/2018 Etix Patient Education 2020 [employer] Follow Up Care 04/17/2022 09:51:05 With:Aimee Walker CNP Address: When: only if needed [facility] 08-07-2022 Hospital Discharge instructions [...] at home: Get plenty of rest. Take dcbv-egw-fwchegm and prescription medicines only as told by your health care provider. Your health care provider may recommend qwwg-erg-sgjlqws medicines for pain. If directed, apply heat [...] 06/09/2009 Document Revised: 08/13/2018 Document Reviewed: 07/16/2018 Etix Patient Education 2020 [employer] Follow Up Care 04/20/2022 14:55:22 With:Aimee Walker Address: [address], [place] [address] [phone] Business (1) When:04/23/2022 16:08:48 Comments:Follow-up with your primary care provider in 3 to 5 days. If symptoms worsen, do not improve, or new symptoms arise please report back to emergency department for further evaluation. [facility]08-07-2022 Evaluation + Plan noteExtracted from: Title:ED Note Author:Dony Alegre PA-C te:04/20/22 Axillary lymphadenopathy (R5 9.0: Localized enlarged lymph nodes) Orders: naproxen, 500 mg = 1 tab(s), Oral, BID, PRN for pain, # 20 tab(s), Refills(s) 0, Pharmacy: [facility]/pharmacy #[id number], 170, cm, 04/20/22 15:01:00 EDT, Height/Length Dosing, 81.5, kg, 04/20/22 15:01:00 EDT, Weight Dosing Automated Diff Basic Metabolic Panel CBC w/ Auto Diff eGFR XR Chest 2 Views Future Appointments Appointment Date:04/21/2022 09:40:00 AM Scheduled Provider:Aimee Walker CNP Location:[facility] Appointment Type: Open [facility]07-21-2022 Hospital Discharge instructions Patient Education 04/03/2022 19:32:39 [...] 03/15/2012 Document Revised: 08/24/2019 Document Reviewed: 08/24/2019 Etix Patient Education 2020 [employer] Follow Up Care 04/03/2022 16:59:04 With:Aimee Walker CNP Address: [phone] When:04/06/2022 [facility]06-17-2022 Miscellaneous Notes* Telephone Encounter - Lina Chavez RN - 02/28/2022 3:[address] Mckee, patient must be 4 weeks nicotine free prior to scheduling and collection of cosmetic payment. documented in this encounterGu[facility]sey [facility]06-[facility]22 History of Present illness Narrative* Amee Gonzalez PA-C - 02/12/2022 10:38 AM EDT Images from the original note were not included. Otolaryngology Consultation/Evaluation Note Head and Neck [place] ASSESSMENT: Burning tongue (primary encounter diagnosis) Irritation of oral cavity PLAN: - Oral mucosa at floor of mouth, [place]'s ducts, and frenulum irritated with mild erythema [...] Take 40 mg by mouth once daily. nwznuqquxzdm-vaa-htqa-FA-vit K (BARIATRIC MULTIVITAMINS) 45 mg iron- 800 [...] Level: 3 - Low documented in this [facility]Gu[facility]05-[facility] Hospital Discharge instructions Patient Education [...] reduces withdrawal symptoms. NRT is available as: ?Hpuw-dij-xkjnubk gums, lozenges, and skin patches. ?Prescription mouth [...] recovery for many people. General instructions Take jnrn-jxz-ywzxnjr and prescription medicines only as told by your health care provider. Check with your health care provider before taking any new prescription or etyo-yaj-ozyzikt medicines. Decide on a friend, family member, or smoking quit-line (such as 9-420-ZSYK-NOW in the [place] that you can call [...] 05/06/2005 Document Revised: 08/18/2018 Document Reviewed: 08/18/2018 Etix Patient Education 2020 [employer] 02/06/2022 09:33:46 BMI for Adults BMI for [...] height. This can be done either in [place] ([place] or metric measurements. Note that charts are available to help you find your BMI quickly and easily without having to do these calculations yourself. To calculate your BMI in [place] ([place] measurements, your health care provider will: [...] medical problems. BMI can be measured using [place] measurements or metric measurements. To interpret your [...] 05/12/2005 Document Revised: 08/13/2018 Document Reviewed: 07/14/2018 Etix Patient Education 2020 [employer] Follow Up Care 02/05/2022 13:43:34 With:Aimee Walker CNP Address: When: only if needed [facility] 05-18-2022 Hospital Discharge instructions [...] height. This can be done either in [place] ([place] or metric measurements. Note that charts are available to help you find your BMI quickly and easily without having to do these calculations yourself. To calculate your BMI in [place] ([place] measurements, your health care provider will: [...] medical problems. BMI can be measured using [place] measurements or metric measurements. To interpret your [...] 05/12/2005 Document Revised: 08/13/2018 Document Reviewed: 07/14/2018 Etix Patient Education 2020 [employer] 01/29/2022 11:02:54 Complicated Grief Complicated Grief Grief [...] friends and loved ones. General instructions Take jpnp-uhs-teexejq and prescription medicines only as told by [...] 08/31/2006 Document Revised: 08/13/2018 Document Reviewed: 06/16/2018 Etix Patient Education 2020 [employer] 01/29/2022 11:02:50 Alcohol Abuse and Dependence Information, [...] for Disease Control and Prevention: www.cdc.gov National [place] on Alcohol Abuse and Alcoholism: www.niaaa.nih.gov Alcoholics [...] 08/25/2017 Document Revised: 12/20/2019 Document Reviewed: 11/08/2019 Etix Patient Education 2019 [employer] 01/29/2022 11:02:46 Managing Bipolar Disorder Managing Bipolar [...] Follow these instructions at home: Medicines Take nymu-dez-ytqcens and prescription medicines only as told by your health care provider or pharmacist. Ask your pharmacist what aqmz-krc-qnqoyno cold medicines you should avoid. Some medicines [...] a problem, search for a local or [facility] mental health care center. Public mental [...] Document Reviewed: 12/31/2017 Elsevier Patient Education 2019 [employer] Inc[employer] [facility] 05-02-2022 Miscellaneous Notes* Telephone [...] another consult she would. Please advise at [phone] documented in this encounterGuernsey [facility]04-15-2022 Miscellaneous Notes* Telephone Encounter - [...] understood. Rocio Hester Ma documented in this encounterGuernsey [facility]05-21-2021 History of Present illness Narrative* Radha Jara - 02/01/2021 9:47 AM EDT CLINICAL PHARMACY NOTE: MEDS TO BEDS Total # of Prescriptions Filled: 2 The following medications were delivered to the patient: Percocet 5-325mg Augmentin 875-125mg Additional Documentation: delivered to patient in room 236 02/01 at 9:44am. Co- pay paid with credit on [employer] ($4.31). * Gamaliel Vickers DO - 01/31/2021 [...] Advance diet Overall improvement * Melissa Singh [facility] - 01/30/2021 9:03 PM EDT Images from [...] Singh RPH 19:00 PM documented in this encounterMobilio Phone: 1(279) 422-410905-15-2021 History of Present illness Narrative* Jasmine Burch RN - 01/26/2021 1:51 PM EDT Infusion complete, no complications, IV out and dressing applied. Encouraged patient to call with any questions. Patient left unit with steady gait to private residence. documented in this encounterMobilio Phone: 1(826) 295-285304-27-2021 History of Present illness Narrative* Radha Jara - 01/08/2021 5:59 PM EDT CLINICAL PHARMACY NOTE: MEDS TO [facility] Patient?: No Total # of Prescriptions Filled: 3 The following medications were delivered to the patient: Percocet 5-325mg Promethazine 25mg Pantoprazole 40mg Total # of Interventions Completed: 0 Time Spent (min): 0 Additional Documentation: delivered to patient in room 247 01/08 at 5:43pm. Co- pay paid with [employer] ($7.02). * Gal Atwood DO - 01/08/2021 [...] obtained for OR 01-07-21 documented in this [employer] Phone: [phone] [id number] Hospital Discharge instructions* Instructions* Gamaliel Vickers, - 01/08/2021 Discharge Instructions for Surgery You had a Tian-en- Y Gastric Bypass (80171) surgery to treat obesity. Recovery from this [...] scheduled appointment, please call the office at [phone]. Call Your Doctor If Any of the [...] documented in this [facility] Phone: [phone]) 471-776304-12-2021 Hospital Discharge instructions* Instructions* Mahesh Price APRN - PYRIDINE RECOVERY OPERATOR - 12/24/2020 Images from the original note [...] drive you home after your procedure. 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 Day of Surgery/Procedure As a patient at [facility] you can expect quality medical and nursing care that is centered on your individual needs. Our goal is to make your surgical experience as comfortableas possible . Directions to the Surgery Center [facility] is located at [address] [place] [address]. Please pull into the Emergency parking lot and stop at the production dispatcher arcos. We offer free production dispatcher service for all our surgery patients, if you choose not to have production dispatcher parking we have additional parking across the street.You will enter the facility following the [facility] sign. Please stop at the fluid designer desk where you will be checked in by the staff. If you have any questions please call [phone]. Transportation after your procedure. You will need a friend or family member to drive you home after your procedure. 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 Maddock your teeth but do not swallow water. [...] or the day of surgery, please call [phone], or [phone] documented in this 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 [...] BLEVINS 12/24/20 11:38 AM documented in this [facility] Work Phone: evaluation + Plan note No data available for this section [facility] Evaluation + Plan note Referrals to Other Providers Referred by: Aimee Walker CNP [facility] Evaluation + Plan note Future Appointments Appointment Date:04/04/2022 02:40:00 PM Scheduled Provider:Rahul Salinas DO Location[facility] [employer] [facility]ments [...] perf and 3D Tanmay 04/21/22 [facility] Evaluation + Plan note Future Appointments Appointment Date:08/22/2022 10:20:00 AM Scheduled Provider:Rahul Salinas DO Location:[facility] [place] [employer] Appointment Type: Hospital Follow Up w/TCM Future Scheduled Tests Laboratory* CBC w/ Auto Diff 07/21/22 Radiology* MA Mamm Screen w/CAD if perf and 3D Tanmay [facility] Future Appointments Appointment Date:11/03/2022 01:00:00 PM Scheduled Provider:Nakia Shah Location:[facility] Appointment Type:FM Open Future Scheduled Tests Laboratory* CBC w/ Auto Diff 07/21/22 Radiology* MA Mamm Screen w/CAD if perf and 3D Tanmay 04/21/22 [facility] Future Appointments Appointment Date:01/02/2023 10:00:00 AM Scheduled Provider:Nakia Shah Location:[facility] Appointment Type:FM Open Future Scheduled Tests Laboratory* CBC w/ Auto Diff 07/21/22 Radiology* MA Mamm Screen w/CAD if perf and 3D Tanmay 04/21/22 [facility] Evaluation + Plan note Future Appointments Appointment Date:12/05/2022 09:00:00 AM Scheduled Provider: Location:[facility] Appointment Type:Surgery FT Appointment Date:01/02/2023 10:00:00 AM Scheduled Provider:Nakia Shah Location:[facility] Appointment Type: Open Future Scheduled Tests Laboratory* CBC w/ Auto Diff 07/21/22 Radiology* MA Mamm Screen w/CAD if perf and 3D Tanmay 04/21/22 [facility] Future Appointments Appointment Date:12/25/2023 10:15:00 AM Scheduled Provider:Otto Larsen MD Location[facility] Appointment Type:Cardiology New Patient ([facility]) [facility] Future Appointments Appointment Date:11/10/2024 08:00:00 AM Scheduled Provider: [facility] Type:US Abdominal/Pelvis (FT) Future Scheduled Tests Radiology* US Abdomen, Limited 11/10/24 [facility] Evaluation + Plan note Future Appointments Appointment Date:11/15/2024 01:45:00 PM Scheduled Provider:Orlando Kate PA-C Location:[facility] [place] Appointment Type:Pain Management - New (FT) [facility] evaluation + Plan note Future Appointments Appointment Date:12/19/2024 10:15:00 AM Scheduled Provider:Orlando Kate PA-C Location:[facility] [place] Appointment Type:Pain Management - Follow Up (FT) [facility] evaluation + Plan note Future Appointments Appointment Date:01/24/2025 09:30:00 AM Scheduled Provider: Location:[facility] Appointment Type:Surgery FT Appointment Date:01/27/2025 10:15:00 AM Scheduled Provider:Orlando Kate PA-C Location:[facility] [place] Appointment Type:Pain Management - Follow Up (FT) [facility] evaluation + Plan note Future Appointments Appointment Date:02/13/2025 08:30:00 AM Scheduled Provider: Location:[facility] Appointment Type:Surgery FT Appointment Date:02/15/2025 01:30:00 PM Scheduled Provider:Orlando Kate PA-C Location:[facility] [place] Appointment Type:Pain Management - Follow Up (FT) Appointment Date:02/16/2025 01:00:00 PM Scheduled Provider:Jak Peace MD Location:[facility] Appointment Type:Cardiology New Patient (FT) [facility] evaluation + Plan note Future Appointments Appointment Date:02/17/2025 09:15:00 AM Scheduled Provider: [facility] App[facility]ment Type:Surgery FT Appointment Date:02/20/2025 02:30:00 PM Scheduled Provider:Orlando Kate PA-C Location:[facility] [place] Appointment Type:Pain Management - Follow Up (FT) Appointment Date:03/16/2025 02:30:00 PM Scheduled Provider:Jak Peace MD Location:[facility] Appointment Type:Cardiology Follow Up (FT) Future Scheduled Tests Radiology* NM Myocardial Spect Rest/Stress 1 Day 02/16/25 [facility] evaluation + Plan note Future Appointments Appointment [...] NM Myocardial Spect Rest/Stress 1 Day 03/13/25 [facility] Evaluation + Plan note Future Appointments Appointment Date:03/03/2025 08:30:00 AM Scheduled Provider: Location:[facility] Appointment Type:Surgery FT Appointment Date:03/09/2025 12:30:00 PM Scheduled Provider:Babar Mayers DO [facility] [place] Appoint[facility] Type:Pain Management - Follow [...] NM Myocardial Spect Rest/Stress 1 Day 03/13/25 [facility] Evaluation + Plan note Future Appointments Appointment Date:03/27/2025 08:45:00 AM Scheduled Provider: Location:[facility] Appointment Type:Surgery FT Appointment Date:04/17/2025 08:00:00 AM Scheduled Provider: Location[facility] Appointment Type:NM Myocard Spect Multi Rest/Stress-Res Appointment Date:04/17/2025 09:00:00 AM Scheduled Provider: Location[facility] Appointment Type:NM Myocard Spect Multi Rest/Stress - R Appointment Date:04/17/2025 09:30:00 AM Scheduled Provider: Location[facility] Appointment Type:NM Myocard Spect Multi Rest/Stress-Str Appointment Date:04/17/2025 10:30:00 AM Scheduled Provider: [facility] Type:NM Myocar Spect Multi Rest/Stress - St Appointment Date:05/02/2025 08:15:00 AM Scheduled Provider:Orlando Kate PA-C [facility] [place] Appointment Type:Pain Management - Follow Up (FT) Future Scheduled Tests Radiology* NM Myocardial Spect Rest/Stress 1 Day 04/17/25 [facility] Evaluation note* Diagnosis Preop testing- Primary Preoperative examination, unspecified documented in this encounter [employer] Phone: [email or web address] note* Diagnosis Post-op pain- Primary Other acute postoperative pain Status post gastric bypass for obesity Bariatric surgery status Morbid obesity with BMI of 40.0-44.9, adult (HCC) Hiatal hernia Diaphragmatic hernia without mention of obstruction or gangrene documented in this encounter [employer] Phone: [email or web address] note* Diagnosis Dehydration documented in this encounter [employer] Phone: [email or web address] note* Diagnosis Generalized abdominal pain- Primary Abdominal pain, generalized documented in this encounter [employer] Phone: evaluation note* Diagnosis Surgery, elective- Primary Unspecified elective surgery for purposes other than remedying health states Omental infarction (HCC) Acute vascular insufficiency of intestine Intra-abdominal abscess (HCC) Peritoneal abscess documented in this encounter [employer] Phone: evaluation note* Diagnosis Omental infarction (HCC) Acute vascular insufficiency of intestine documented in this encounter [employer] Phone: [email or web address] note* Diagnosis Hypertrophy of breast- Primary Upper back pain Excess skin [facility]* Diagnosis Burning tongue- Primary Glossodynia Irritation of oral cavity Other and unspecified diseases of the oral soft tissues documented in this encounter [facility] note* Diagnosis Onset Date Resolution Status Bipolar 1 disorder acute Blurry vision acute Borderline personality disorder acute Headache acute MDD (major depressive disorder) acute Palpitation acute [facility] Work Phone: Evaluation note* Diagnosis Idiopathic intracranial hypertension- Primary Benign intracranial hypertension Depression, unspecified depression type Primary hypertension Unspecified essential hypertension Hx of gastric bypass Bariatric surgery status H/O foot surgery Personal history of surgery to other organs documented in this encounter [facility] noteNo assessment information [facility] Work Phone: Evaluation noteNo InformationNort [employer] Other Evaluation note* Diagnosis Panic disorder- Primary Panic disorder without agoraphobia Borderline personality disorder (HCC) Borderline personality disorder Bipolar affective disorder in remission (HCC) Chronic alcoholism in remission (HCC) Other and unspecified alcohol dependence, in remission Routine health maintenance Routine general medical examination at a health care facility documented [facility] this encounter [facility]* Diagnosis Panic disorder- Primary Panic disorder without agoraphobia documented in this encounter [facility] note* Diagnosis Routine health maintenance- [...] disorder, unspecified type documented in this encounter [facility] note* Diagnosis 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 documented in this encounter [facility] note* Diagnosis Idiopathic intracranial hypertension Benign intracranial hypertension documented in this encounter [facility] note* Diagnosis Chest pain, unspecified type- Primary Palpitations Bipolar affective disorder in remission (HCC) History of substance abuse (HCC) Other, mixed, or unspecified nondependent drug abuse, unspecified Borderline personality disorder (HCC) Borderline personality disorder Serum calcium elevated Hypercalcemia documented in this encounter [facility] note* Diagnosis Mass of upper outer quadrant of left breast documented in this encounter [facility] note* Diagnosis Abnormal mammogram- Primary Abnormal mammogram, unspecified Mass of upper outer quadrant of left breast Fibrocystic breast changes of both breasts Mastodynia Inversion of left nipple Bloody discharge from left nipple Other sign and symptom in breast Nipple discharge Other sign and symptom in breast Mass of upper outer quadrant of left breast documented in this encounter [facility] note* Diagnosis Abnormal mammogram of left breast documented in this encounter [facility] note* Diagnosis Bipolar affective disorder in remission (HCC)- Primary Borderline personality disorder (HCC) Borderline personality disorder Anxiety disorder, unspecified type Chest pain, unspecified type Iron deficiency anemia, unspecified iron deficiency anemia type documented in this encounter [facility] note* Diagnosis Angina pectoris Other and unspecified angina pectoris Shortness of breath Palpitations Family history of ischemic heart disease Primary hypertension Unspecified essential hypertension Current smoker BMI 29.0-29.9,adult documented in this encounter [facility] Work Phone: Evaluation note* Diagnosis Bipolar affective disorder in remission (HCC) Borderline personality disorder (HCC) Borderline personality disorder Anxiety disorder, unspecified type documented in this encounter [facility] note* Diagnosis Angina pectoris Other and unspecified angina pectoris Shortness of breath Palpitations Family history of ischemic heart disease Primary hypertension Unspecified essential hypertension documented in this encounter [facility] Work Phone: Evaluation note* Diagnosis Ataxia- Primary Lack of coordination Myalgia Unspecified myalgia and myositis documented in this encounter [facility] note* Diagnosis Myalgia Unspecified myalgia and myositis documented in this encounter [facility] Healthcare[facility] note* Diagnosis Bipolar affective disorder in remission (HCC) Borderline personality disorder (HCC) Borderline personality disorder Anxiety disorder, unspecified type [facility]* Diagnosis Acute pharyngitis, unspecified etiology- Primary Pharyngitis, unspecified etiology documented in this encounter [facility] HealthcareEvaluation note* Diagnosis Pseudoangiomatous stromal hyperplasia of breast- Primary Hypertrophy of breast documented in this encounter [facility] HealthcareEvaluation note* Diagnosis Pseudoangiomatous stromal hyperplasia of breast- Primary documented in this encounter [facility] HealthcareHistory general Narrative - Reported* Type Description Date Medical History plantar fasciitis Medical History migraine headache Medical History borderline personality disorder Medical History chronic depression Medical History bipolar Surgical History C section Surgical History c section Surgical History tubal ligation Surgical History HYSTERECTOMY Surgical History oral surgery Surgical History gastric bypass Hospitalization History mental health issues [email or web address] Other History general Narrative - Reported* Type Description Date Medical History plantar fasciitis Medical History migraine headache Medical History borderline personality disorder Medical History chronic depression Medical History bipolar Surgical History C section Surgical History c section Surgical History tubal ligation Surgical History HYSTERECTOMY Surgical History oral surgery Surgical History gastric bypass Hospitalization History mental health issues Hospitalization History [facility] 11/13 023 [email or web address] Other Hospital Discharge instructions No data available for this section [facility] Hospital Discharge instructions Additional Instructions Follow-up with your PCP and neurology Rest Push fluids Tylenol or Motrin if needed for pain Return here if any problems persist [facility] Work Phone: Hospital Discharge instructions Additional [...] pain unless a prescription was provided.[facility] Work Phone: Progress note No data available for this section [facility] Outpatient Procedure (Routine) - New Request Specialty Diagnoses / Procedures Referred By Contac lynn Referred To [facility] Diagnoses Chest pain, unspecified type Palpitations Procedures ECG COMPLETE ECG ROUTINE ECG W/LEAST 12 LDS W/[place] [address] [place] [address] [facility] [place] [address] [place] [id number] Referral ID Status Reason Start Date Expiration Date Visits Requested Visits Authorized [id number] New Request Auto-Generat ed Referral 07/01/2025 1 1 T [facility] for referral (narrative)* Diagnostic Procedure Only (Routine) - Closed Specialty Diagnoses / Procedures Referred By Simona bailey Referred To Contact [facility] Diagnoses Abnormal mammogram of left breast Procedures US BIOPSY BREAST LEFT BX BREAST W/DEVICE 1ST LESION ULTRASOUND GUID Abi Asif MD [address] [address] [facility] [address] [place] [address] Referral ID Status Reason Start Date Expiration Date V isits Requested Visits Authorized [id number] Closed Auto-Generate d Referral 07/05/2024 08/04/2025 1 1 T [facility] for referral (narrative)No reason for referral information [facility] Work Phone: Reason for visit Narrative* Diagnostic Procedure Only (Routine) - Closed Specialty Diagnoses / Procedures Referred By Simona t Referred To Contact [facility] Diagnoses Abnormal mammogram of left breast Procedures US BIOPSY BREAST LEFT BX BREAST W/DEVICE 1ST LESION ULTRASOUND Abi Allen MD [address] [facility] [address] [place] [address] [facility] [address] [place] [address] Referral ID Status Reason Start Date Expiration Date V isits Requested Visits Authorized [id number] Closed Auto-Generate d Referral 07/05/2024 08/04/2025 1 1 [facility] for visit Narrative* Cardiovascular (Routine) - Authorized Specialty Diagnoses / Procedures Referred By Simona bailey Referred To Contact Cardiology Diagnoses Angina pectoris Shortness of breath Procedures ECG 12 Lead Aleah Howard MD [address] [address] Phone: tel: fax: Referral ID Status Reason Start Date Expiration Date V isits Requested Visits Authorized [id number] Authorized 08/08/2024 08/08/2025 1 1 [facility] Work Phone: Reason for visit Narrative* CV Imaging (Routine) - Authorized Specialty Diagnoses / Procedures Referred By Simona bailey Referred To Contact Cardiology Diagnoses Angina pectoris Shortness of breath Palpitations Family history of ischemic heart disease Primary hypertension Procedures Transthoracic Echo Complete ID ECHO TTHRC R-T 2D W/WOM-MODE COMPL SPEC&COLR D Aleah Howard MD [address] [address] Phone: tel: fax: Referral ID Status Reason Start Date Expiration Date Visits Requested Visits Authorized [id number] Authorized Perform Procedure 08/08/2025 1 1 [facility] Work Phone: Assessments Diagnosis Preoperative testing Preoperative examination, unspecified Diagnosis Gastroesophageal reflux disease with esophagitis without hemorrhage Advance Directives No Advanced Directives Records FoundDocuments on File Type Date Recorded Patient Online Advertising Manager Expl anation ACP-Advance Directive ACP-Power of Metabolic Specialist Documents on File Type Date Recorded Patient Online Advertising Manager Expl anation ACP-Advance Directive ACP-Power of Metabolic Specialist Latest Code Status on File Code [...] questions, PLEASE call your doctor or the [facility] at documented in this encounter Reason for Referral Status Reason Specialty Diagnoses / Procedures Referre d By Contact Referred To Contact Closed Radiology Diagnoses Omental infarction (HCC) Procedures CT ABDOMEN PELVIS W IV CONTRAST Additional Contrast? Oral Gamaliel Vickers DO [address] [facility] [address] [place] [address] Specialty Diagnoses / Procedures Referred By Simona bailey Referred To Contact Ophthalmology Diagnoses Idiopathic intracranial hypertension Procedures CONSULT TO OPHTHALMOLOGY OFFICE/OUTPATIENT [facility] 60-74 MINUTES Eileen Alvarez MD [address] [place] [address] Referral ID Status Reason Start Date Expiration Date Visits Requested Visits Authorized [id number] Authorized PCP Requested Referral 11/20/2022 11/20/2023 1 1 Specialty Diagnoses / Procedures Referred By Contac t Referred To Contact [facility] IMAGING Diagnoses Idiopathic intracranial hypertension Procedures MRV BRAIN WO/W IVCON MRA; HEAD W & WO Eileen Dang MD [address] [place] [address] [facility] Imaging Referral ID Status Reason Start Date Expiration Date Visits Requested Visits Authorized [id number] Pending Review Auto-Generat ed Referral 11/20/2022 12/20/2023 1 1 Specialty Diagnoses / Procedures Referred By Contac t Referred To Contact MR IMAGING Diagnoses Mass of upper outer quadrant of left breast Procedures MRI BREAST BX WO/W IVCON LEFT BX BREAST W/DEVICE 1ST [place] [address] [place] [address] [place] [address] Referral ID Status Reason Start Date Expiration Date Visits Requested Visits Authorized [id number] Pending Review Auto-Generat ed Referral 03/08/2024 04/07/2025 1 1 Specialty Diagnoses / Procedures Referred By Contac t Referred To Contact Diagnoses Class 1 obesity due to excess calories without serious comorbidity with body mass index (BMI) of 30.0 to 30.9 in adult Procedures ENDOCRINE MEDICAL WEIGHT MANAGEMENT OFFICE/OUTPATIENT [facility] [address] [place] [address] [place] [address] Referral ID Status Reason Start Date Expiration Date Visits Requested Visits Authorized [id number] Authorized PCP Requested Referral 03/08/2024 03/08/2025 1 1 Specialty Diagnoses / Procedures Referred By Contac t Referred To Contact [facility] IMAGING Diagnoses Pancreas cyst Procedures MRI 3D POST PROCESSING 3D RENDERING W/INTERP&POSTPROC DIFF WORK STATION Leonela Aguirre MD [address] [place] [address] [place] [address] Referral ID Status Reason Start Date Expiration Date V isits Requested Visits Authorized [id number] Closed Auto-Generate d Referral 08/31/2023 09/29/2024 1 1 Specialty Diagnoses / Procedures Referred By Contac t Referred To Contact MR IMAGING Diagnoses Pancreas cyst Procedures MRI PANC/TANMAY WO/W IVCON MRI ABDOMEN W/O & W/CONTRAST MATERIAL Leonela Aguirre MD [address] [place] [phone] [facility] [place] [address] Referral ID Status Reason Start Date Expiration Date V isits Requested Visits Authorized [id number] Closed Auto-Generate d Referral 03/01/2024 03/31/2024 1 1 Specialty Diagnoses / Procedures Referred By Contac t Referred To Contact MR IMAGING Diagnoses Idiopathic intracranial hypertension Procedures MRV BRAIN WO/W IVCON MRA; HEAD W & WO CONTRAST Eileen Alvarez MD [address] [place] [id number] [facility] [place] [address] Referral ID Status Reason Start Date Expiration Date V isits Requested Visits Authorized [id number] Closed Auto-Generate d Referral 01/29/2023 02/28/2023 1 1 Specialty Diagnoses / Procedures Referred By Contac t Referred To Contact MR IMAGING Diagnoses Mass of upper outer quadrant of left breast Fibrocystic breast changes of both breasts Mastodynia Inversion of left nipple Bloody discharge from left nipple Nipple discharge Procedures MRI BREAST WO/W IVCON BILATERAL MRI BREAST WITHOUT&WITH CONTRAST W/CAD BILATERAL Fatuma Tyler, PYRIDINE RECOVERY OPERATOR [address] [place] [phone] Mr [facility] [place] [address] Referral ID Status Reason Start Date Expiration Date Visits Requested Visits Authorized [id number] Pending Review Auto-Generat ed Referral 08/03/2025 1 1 Specialty Diagnoses / Procedures Referred By Contac t Referred To Contact BR IMAGING Diagnoses Mass of upper outer quadrant of left breast Procedures US BREAST LTD LEFT US BREAST UNI REAL TIME WITH IMAGE LIMITED Fatuma Tyler APRN.PYRIDINE RECOVERY OPERATOR [address] [place] [address] [facility] [address] [place] [address] Referral ID Status Reason Start Date Expiration Date V isits Requested Visits Authorized [id number] Closed Auto-Generate d Referral 07/04/2024 09/13/2024 1 1 Specialty Diagnoses / Procedures Referred By Simona bailey Referred To Contact BR IMAGING Diagnoses Mass of upper outer quadrant of left breast Procedures LINDA DIAG W AV BILATERAL DIGITAL BREAST TOMOSYNTHESIS BILATERAL Tyler, Bruceceleste, FIELD SUPPORT TECHNICIAN.PYRIDINE RECOVERY OPERATOR [address] [place] [address] [facility] [address] [place] [address] Referral ID Status Reason Start Date Expiration Date V isits Requested Visits Authorized [id number] Closed Auto-Generate d Referral 07/04/2024 09/13/2024 1 [...] 7: 45am Chief Complaint Admit Date N64.89 N6April 26, 2025 7: 45am May 11, 2025 10 :00am [facility] May 16, 2025 8:54am Chief Complaint Admit Date N64.89 April 26, 2025 7: 45am BH May 11, 2025 10 :00am P[facility] May 16, 2025 8:54am Left Breast Pseudoangiomatous Stromal Hy drocladia May 30, 2025 7:04am Additional Source Comments INFORMATION SOURCE (unrecogn ized section and content) DATE CREATED AUTHOR 10/06/2020 [facility] DATE CREATED AUTHOR AUTHOR'S ORGANIZ ATION 01/06/2021 [facility] DATE CREATED AUTHOR AUTHOR'S ORGANIZ ATION 08/16/2022 [facility] DATE CREATED AUTHOR AUTHOR'S ORGANIZ ATION 11/15/2022 [facility] DATE CREATED AUTHOR AUTHOR'S ORGANIZ ATION 08/17/2023 [facility] DATE CREATED AUTHOR AUTHOR'S ORGANIZ ATION 09/04/2023 [facility] DATE CREATED AUTHOR AUTHOR'S ORGANIZ ATION 10/26/2023 [facility] DATE CREATED AUTHOR AUTHOR'S ORGANIZ ATION 03/12/2024 [facility] DATE CREATED AUTHOR AUTHOR'S ORGANIZ ATION 09/16/2024 [facility] DATE CREATED AUTHOR AUTHOR'S ORGANIZ ATION 09/25/2024 [facility] DATE CREATED AUTHOR AUTHOR'S ORGANIZ ATION 09/26/2024 [facility] DATE CREATED AUTHOR AUTHOR'S ORGANIZ ATION 09/30/2024 [facility] DATE CREATED AUTHOR AUTHOR'S ORGANIZ ATION 10/19/[address] [facility] DATE CREATED AUTHOR AUTHOR'S ORGANIZ ATION 12/13/2024 [facility] DATE CREATED AUTHOR AUTHOR'S ORGANIZ ATION 01/29/2025 [facility] DATE CREATED AUTHOR AUTHOR'S ORGANIZ ATION 02/19/2025 [facility] DATE CREATED AUTHOR AUTHOR'S ORGANIZ ATION 03/05/2025 [facility] DATE CREATED AUTHOR AUTHOR'S ORGANIZ ATION 03/17/2025 [facility] DATE CREATED AUTHOR AUTHOR'S ORGANIZ ATION 05/06/2025 [facility] DATE CREATED AUTHOR AUTHOR'S ORGANIZ ATION 05/07/2025 [facility] DATE CREATED AUTHOR AUTHOR'S ORGANIZ ATION 06/03/2025 [facility] Reason for Visit (unrecogniz ed section and content) Status Reason Specialty Diagnoses / Procedures Re ferred By Contact Referred To Contact Diagnoses GERD (gastroesophageal reflux disease) GERD/OBESITY Procedures ID ESOPHAGOGASTRODUODENOSCOPY TRANSORAL DIAGNOSTIC EGD ESOPHAGOGASTRODUODENOSCOPY Gamaliel Vickers DO [address] [place] [address] [facility] [employer] Status Reason Specialty Diagnoses / Procedures Referre d By Contact Referred To Contact Closed Radiology Diagnoses Gastro-esophageal reflux disease with esophagitis, without bleeding Procedures CHG RADIOLOGIC EXAM UPR GI TRC SINGLE CONTRAST STUDY Gamaliel Vickers DO [address] [facility] [place] [address] [facility] [address] [place] [id number] Status Reason Specialty Diagnoses / Procedures Referre d By Contact Referred To Contact Diagnoses Morbid obesity (HCC) GERD (gastroesophageal reflux disease) MORBID OBESITY, GERD Procedures ID LAP GASTRIC BYPASS/TIAN-EN-Y XI LAPAROSCOPIC ROBOTIC GASTRIC BYPASS TIAN-EN-Y, LIVER BIOPSY, EGD- GI UNIT SCHEDULED. Gamaliel Vickers DO [address] [place] [address] [facility] [employer] Reason Comments Abdominal Pain Diffuse cramping and bloating. Onset 2 days ago. Pt reports she is 3.5weeks post Gastric bypass. Last BM this AM Reason Comments Abdominal Pain possible abscess Status Reason Specialty Diagnoses / Procedures Referre d By Contact Referred To Contact Diagnoses Intra-abdominal abscess (HCC) Omental infarction (HCC) Gamaliel Vickers DO [address] [place] [address] [facility] [employer] Status Reason Specialty Diagnoses / Procedures Referre d By Contact Referred To Contact Closed Radiology Diagnoses Omental infarction (HCC) Procedures CT ABDOMEN PELVIS W IV CONTRAST Additional Contrast? Oral Gamaliel Vickers DO [address] [facility] [address] [place] [address] Reason Comments Orders Reason Comments Patient Question Appointment Reason Comments Mouth Sores blood in the back of throat Reason Comments Scheduling Reason Comments Appointment Reason Comments Headache Reason Comments Refill Request Specialty Diagnoses / Procedures [facility] Referred To Contact Diagnoses Gastroesophageal reflux disease, unspecified whether esophagitis present Obesity (BMI 30-39.9) Gastroesophageal reflux disease, unspecified whether esophagitis present [K21.9] Obesity (BMI 30-39.9) [E66.9] Procedures ID EGD TRANSORAL BIOPSY SINGLE/MULTIPLE ID ESOPHAGOGASTRODUODENOSCOPY TRANSORAL DIAGNOSTIC ID EGD BALLOON DILATION ESOPHAGUS <30 MM DIAM EGD BIOPSY Gamaliel Vickers DO [address] [facility] [address] [place] [address] [facility] [address] [place] [address] Referral ID Status Reason Start Date Expiration Date Visits Re quested Visits Authorized [id number] 1 1 Reason Comments Establish Care Panic [...] W/O & W/CONTRAST MATERIAL Leonela Aguirre MD [address] [place] [address] [place] [address] Referral ID Status Reason Start Date Expiration Date V isits Requested Visits Authorized [id number] Closed Auto-Generate d Referral 03/01/2024 03/31/2024 1 1 Reason Onset Date Comments ACM EDYTA RN 05/30/2024 ED Utilizatio n review per request of payer Specialty Diagnoses / Procedures Referred By Simona t Referred To Contact [facility] IMAGING Diagnoses Idiopathic intracranial hypertension Procedures MRV BRAIN WO/W IVCON MRA; HEAD W & WO CONTRAST Eileen Alvarez MD [address] [place] [address] [place] [address] Referral ID Status Reason Start Date Expiration Date V isits Requested Visits Authorized [id number] Closed Auto-Generate d Referral 01/29/2023 02/28/2023 1 [...] BILATERAL DIGITAL BREAST TOMOSYNTHESIS BILATERAL Fatuma Tyler APRN.PYRIDINE RECOVERY OPERATOR [address] [place] [address] [facility] [address] [place] [address] Referral ID Status Reason Start Date Expiration Date V isits Requested Visits Authorized [id number] Closed Auto-Generate d Referral 07/04/2024 09/13/2024 1 [...] Date Comments Population Health Navigation Outreach 10/17/2024 [employer] [place] Reason Comments Left breast hypertrophy Specialty Diagnoses / Procedures Referred By Simoan bailey Referred To Contact General Surgery Diagnoses Hypertrophy of breast Procedures ID OFFICE/OUTPATIENT NEW HIGH MDM 60 MINUTES Molly Gregorio, FIELD SUPPORT TECHNICIAN-PYRIDINE RECOVERY OPERATOR [address] [place] [address] Phone: tel: fax: [facility] [address] [facility] [address] [place] [address] Phone: tel: fax: Referral ID Status Reason Start Date Expiration Date V isits Requested Visits Authorized [id number] Closed Specialty Services Required 04/10/2025 10/07/2025 1 [...] 1 dose 1142 (Given - Provid er: [facility]) iopamidol (ISOVUE-370) 76 % injection 75 mL (COMPLETED) 75 mL, Intravenous, IMG ONCE PRN, Other, Starting on Thu01/30/21 at 1137, For 1 dose 1142 (Given - Provid er: [facility]) Scheduled Medication Order 01/30/2021 01/31/2021 [...] or prosecute any alcohol or drug abuse patient.[facility] Hospital[facility] the event this information is protected by the Federal Confidentiality of Alcohol and Drug Abuse Patient Records regulations: The Federal rules restrict any use of the information to criminally investigate or prosecute any alcohol or drug abuse patient.[facility] HospitalIn the event this information is protected by the Federal Confidentiality of Alcohol and Drug Abuse Patient Records regulations: The Federal rules restrict any use of the information to criminally investigate or prosecute any alcohol or drug abuse patient.[facility] HospitalIn the event this information is protected by the Federal Confidentiality of Alcohol and Drug Abuse Patient Records regulations: The Federal rules restrict any use of the information to criminally investigate or prosecute any alcohol or drug abuse patient.[facility] HospitalIn the event this information is protected by the Federal Confidentiality of Alcohol and Drug Abuse Patient Records regulations: The Federal rules restrict any use of the information to criminally investigate or prosecute any alcohol or drug abuse patient.[facility] HospitalIn the event this information is protected by the Federal Confidentiality of Alcohol and Drug Abuse Patient Records regulations: The Federal rules restrict any use of the information to criminally investigate or prosecute any alcohol or drug abuse patient.[facility] HospitalIn the event this information is protected by the Federal Confidentiality of Alcohol and Drug Abuse Patient Records regulations: The Federal rules restrict any use of the information to criminally investigate or prosecute any alcohol or drug abuse patient.[facility] HospitalIn the event this information is protected by the Federal Confidentiality of Alcohol and Drug Abuse Patient Records regulations: The Federal rules restrict any use of the information to criminally investigate or prosecute any alcohol or drug abuse patient.[facility] HospitalIn the event this information is protected by the Federal Confidentiality of Alcohol and Drug Abuse Patient Records regulations: The Federal rules restrict any use of the information to criminally investigate or prosecute any alcohol or drug abuse patient.[facility] HospitalIn the event this information is protected by the Federal Confidentiality of Alcohol and Drug Abuse Patient Records regulations: The Federal rules restrict any use of the information to criminally investigate or prosecute any alcohol or drug abuse patient.[facility] HospitalIn the event this information is protected by the Federal Confidentiality of Alcohol and Drug Abuse Patient Records regulations: The Federal rules restrict any use of the information to criminally investigate or prosecute any alcohol or drug abuse patient.[facility] HospitalIn the event this information is protected by the Federal Confidentiality of Alcohol and Drug Abuse Patient Records regulations: The Federal rules restrict any use of the information to criminally investigate or prosecute any alcohol or drug abuse patient.[facility] HospitalIn the event this information is protected by the Federal Confidentiality of Alcohol and Drug Abuse Patient Records regulations: The Federal rules restrict any use of the information to criminally investigate or prosecute any alcohol or drug abuse patient.[facility] HospitalIn the event this information is protected by the Federal Confidentiality of Alcohol and Drug Abuse Patient Records regulations: The Federal rules restrict any use of the information to criminally investigate or prosecute any alcohol or drug abuse patient.[facility] HospitalIn the event this information is protected by the Federal Confidentiality of Alcohol and Drug Abuse Patient Records regulations: The Federal rules restrict any use of the information to criminally investigate or prosecute any alcohol or drug abuse patient.[facility] HospitalIn the event this information is protected by the Federal Confidentiality of Alcohol and Drug Abuse Patient Records regulations: The Federal rules restrict any use of the information to criminally investigate or prosecute any alcohol or drug abuse patient.[facility] HospitalIn the event this information is protected by the Federal Confidentiality of Alcohol and Drug Abuse Patient Records regulations: The Federal rules restrict any use of the information to criminally investigate or prosecute any alcohol or drug abuse patient.[facility] HospitalIn the event this information is protected by the Federal Confidentiality of Alcohol and Drug Abuse Patient Records regulations: The Federal rules restrict any use of the information to criminally investigate or prosecute any alcohol or drug abuse patient.[facility] HospitalIn the event this information is protected by the Federal Confidentiality of Alcohol and Drug Abuse Patient Records regulations: The Federal rules restrict any use of the information to criminally investigate or prosecute any alcohol or drug abuse patient.[facility] HospitalIn the event this information is protected by the Federal Confidentiality of Alcohol and Drug Abuse Patient Records regulations: The Federal rules restrict any use of the information to criminally investigate or prosecute any alcohol or drug abuse patient.[facility] HospitalIn the event this information is protected by the Federal Confidentiality of Alcohol and Drug Abuse Patient Records regulations: The Federal rules restrict any use of the information to criminally investigate or prosecute any alcohol or drug abuse patient.[facility] HospitalIn the event this information is protected by the Federal Confidentiality of Alcohol and Drug Abuse Patient Records regulations: The Federal rules restrict any use of the information to criminally investigate or prosecute any alcohol or drug abuse patient.[facility] HospitalIn the event this information is protected by the Federal Confidentiality of Alcohol and Drug Abuse Patient Records regulations: The Federal rules restrict any use of the information to criminally investigate or prosecute any alcohol or drug abuse patient.[facility] HospitalIn the event this information is protected by the Federal Confidentiality of Alcohol and Drug Abuse Patient Records regulations: The Federal rules restrict any use of the information to criminally investigate or prosecute any alcohol or drug abuse patient.[facility] HospitalIn the event this information is protected by the Federal Confidentiality of Alcohol and Drug Abuse Patient Records regulations: The Federal rules restrict any use of the information to criminally investigate or prosecute any alcohol or drug abuse patient.[facility] HospitalIn the event this information is protected by the Federal Confidentiality of Alcohol and Drug Abuse Patient Records regulations: The Federal rules restrict any use of the information to criminally investigate or prosecute any alcohol or drug abuse patient.[facility] HospitalIn the event this information is protected by the Federal Confidentiality of Alcohol and Drug Abuse Patient Records regulations: The Federal rules restrict any use of the information to criminally investigate or prosecute any alcohol or drug abuse patient.[facility] HospitalIn the event this information is protected by the Federal Confidentiality of Alcohol and Drug Abuse Patient Records regulations: The Federal rules restrict any use of the information to criminally investigate or prosecute any alcohol or drug abuse patient.[facility] HospitalIn the event this information is protected by the Federal Confidentiality of Alcohol and Drug Abuse Patient Records regulations: The Federal rules restrict any use of the information to criminally investigate or prosecute any alcohol or drug abuse patient.[facility] HospitalIn the event this information is protected by the Federal Confidentiality of Alcohol and Drug Abuse Patient Records regulations: The Federal rules restrict any use of the information to criminally investigate or prosecute any alcohol or drug abuse patient.[facility] Care Team (unrecognized sect ion [...] Member Role Status Dates Lindy Keen APRN BIOMEDICAL FIELD SERVICE ENGINEER-C Primary Care Provider Activ e Start: May [...] Member Role Status Dates Lindy Keen APRN BIOMEDICAL FIELD SERVICE ENGINEER-C Primary Care Provider Activ e Start: April [...] DO Other Provider Active Shasta Zaragoza , CEDRIC Other Provider Active Danielle Smith BIOMEDICAL FIELD SERVICE ENGINEER-C Other Provider Active Lizzeth Malave MD Attending [...] Active Yoli Norris MD Emergency Provider Active Senior Sas Programmer Relationship Specialty Start Date End Date Jennie Durand DO [address] [place] [phone] PCP - General Family Medicine 11/19/22 Team [...] December 31, 2023 End: December 31, 2023 Senior Sas Programmer Relationship Specialty [place] [address] [place] [address] PCP - General Family Medicine 01/04/24 Nilo Prado MD [address] [place] [address] Referring Gastroenterology 08/17/23 Senior Sas Programmer Relationship Specialty [place] [address] [place] [address] PCP - General Family Medicine 01/04/24 Nilo Prado MD [address] [place] [address] Referring Gastroenterology 08/17/23 Senior Sas Programmer Relationship Specialty [place] [address] [place] [address] PCP - General Family Medicine 01/04/24 Nilo Prado MD [address] [place] [address] Referring Gastroenterology 08/17/23 Senior Sas Programmer Relationship Specialty Start Date End Date Elia Baires DO [address] [place] [address] PCP - General Family Medicine 01/04/24 Nilo Prado MD [address] [place] [address] Referring Gastroenterology 08/17/23 Senior Sas Programmer Relationship Specialty [place] [address] [place] [address] PCP - General Family Medicine 01/04/24 Nilo Prado MD [address] [place] [address] Referring Gastroenterology 08/17/23 Senior Sas Programmer Relationship Specialty Start Date End Date Tevin Carson DO [address] [place] [address] PCP - General Family Medicine 05/30/24 Nilo Prado MD [address] [place] [address] Referring Gastroenterology 08/17/23 Senior Sas Programmer Relationship Specialty Start Date End Date Tevin Carson [address] [place] [address] PCP - General Family Medicine 05/30/24 Nilo Prado MD [address] [place] [address] Referring Gastroenterology 08/17/23 Senior Sas Programmer Relationship Specialty [place] [address] [place] [address] PCP - General Family Medicine 05/30/24 Nilo Prado MD [address] [place] [address] Referring Gastroenterology 08/17/23 Senior Sas Programmer Relationship Specialty Start Date [place]DO [address] [place] [address] PCP - General Family Medicine 05/30/24 Nilo Prado MD [address] [place] [address] Referring Gastroenterology 08/17/23 Senior Sas Programmer Relationship Specialty [place] [address] [place] [address] PCP - General Family Medicine 05/30/24 Nilo Prado MD [address] [place] [address] Referring Gastroenterology 08/17/23 Senior Sas Programmer Relationship Specialty Start Date End Date Tevin Carson [address] [place] [address] PCP - General Family Medicine 05/30/24 Nilo Prado MD [address] [place] [address] Referring Gastroenterology 08/17/23 Senior Sas Programmer Relationship Specialty [place] [address] [place] [address] PCP - General Family Medicine 05/30/24 Nilo Prado MD [address] [place] [address] Referring Gastroenterology 08/17/23 Senior Sas Programmer Relationship Specialty Start Date End Date Yamileth Tevin [address] [place] [address] PCP - General Family Medicine 05/30/24 Nilo Prado MD [address] [place] [address] Referring Gastroenterology 08/17/23 Senior Sas Programmer Relationship Specialty [place] [address] [place] [address] PCP - General Family Medicine 05/30/24 Nilo Prado MD [address] [place] [address] Referring Gastroenterology 08/17/23 Senior Sas Programmer Relationship Specialty Start Date End Date Tevin Carson [address] [place] [address] PCP - General Family Medicine 05/30/24 Nilo Prado MD [address] [place] [address] Referring Gastroenterology 08/17/23 Senior Sas Programmer Relationship Specialty Start Date End Date Tevin Carson [address] [place] [address] PCP - General Family Medicine 05/30/24 Nilo Prado MD [address] [place] [address] Referring Gastroenterology 08/17/23 Senior Sas Programmer Relationship Specialty Start Date End Date Tevin Carson [address] [place] [address] PCP - General Family Medicine 05/30/24 Nilo Prado MD [address] [place] [address] Referring Gastroenterology 08/17/23 [place] [address] [place] [address] Loss Prevention Leader Family Medicine 08/22/24 Senior Sas Programmer Relationship Specialty Start Date End Date Tevin Carson [address] [place] [address] PCP - General Family Medicine 05/30/24 Nilo Prado MD [address] [place] [address] Referring Gastroenterology 08/17/23 [place] [address] [facility] [place] [address] Loss Prevention Leader Family Medicine 08/22/24 Senior Sas Programmer Relationship Specialty Start Date End Date Kurt Balbuena [address] [address] 09/21/24 Senior Sas Programmer Relationship Specialty Start Date End Date Kurt Balbuena [address] [address] 09/21/24 Team Status: Active Member Role Status Dates Jennie Durand , Primary Care Provider Active S tart: July 03, 2024 Julio Peña DO Attending Provider Active Sta rt: July 03, 2024 Senior Sas Programmer Relationship Specialty Start Date End Date Kurt Balbuena [address] [address] 09/21/24 Senior Sas Programmer Relationship Specialty Start Date End Date Kurt Balbuena [address] [address] 09/21/24 Cobry Larsen DO [address] [place] [phone] Referring Physician Neurology 09/27/24 Team Status: Inactive Member Role Status Dates NON STAFF Primary Care Provider Active Start: December 16, 2024 End: December 16, 2024 Corby Larsen DO Attending Provider Active Start: December 16, 2024 End: December 16, 2024 Senior Sas Programmer Relationship Specialty [place] [address] [place] [address] PCP - General Family Medicine 05/30/24 Nilo Prado MD [address] [place] [address] Referring Gastroenterology 08/17/23 Lisha Bianchi, CEDRIC.PYRIDINE RECOVERY OPERATOR [address] [place] [address] Loss Prevention Leader Family Medicine 12/16/24 Senior Sas Programmer Relationship Specialty Start Date End Date Kurt Balbuena NP [address] [address] 09/21/24 Corby Larsen DO [address] [address] Referring Physician Neurology 09/27/24 Senior Sas Programmer Relationship Specialty Start Date End Date Unallocated, Virginia Conte MD [facility] [place] [address] PCP - General Family Medicine 04/13/25 Kurt Blabuena NP [address] [address] 09/21/24 Corby Larsen DO [address] [address] Referring Physician Neurology 09/27/24 Senior Sas Programmer Relationship Specialty Start Date End Date Unallocated, [place] [address] PCP - General Family Medicine 04/13/25 Kurt Balbuena NP [address] [address] 09/21/24 Corby Larsen DO [address] [address] Referring Physician Neurology 09/27/24 Team Status: Inactive [...] BE BASED ON THE PRIMARY CLINICAL RECORDS. [employer] provides no warranty or guarantee of the accuracy or completeness of information in this document.
--- NOTE | 2025-06-05 11:36 | ECG_ITS ---
The [facility] Test Date: 2025-06-05 Pat Name: LEILA HASSAN Department: Room: - Gender: Female Blanket Maker: : 1990 Requested By: [id number] Order Number: [id number] Reading MD: JASON MEAD M.D. Measurements Intervals [place] Rate: 74 P: 41 VT: 158 QRS: 56 QRSD: 82 T: 27 QT: 378 QTc: 405 Interpretive Statements 1100 Sinus rhythm 9110 normal ECG Compared to ECG 05/07/2025 08:38:26 No significant changes Electronically Signed On 06-05-2025 17:17:36 EDT by JASON MEAD M.D.
[2025-06-05] MEDS: METHYLPREDNISOLONE SOD SUCC PF 125 MG/2 ML VIAL IVP (12:01)
--- NOTE | 2025-06-05 12:07 | ED.GENADUL1 ---
HPI HPI - General Adult General Chief complaint: Recheck/Abnormal Lab/Rx Stated complaint: POST OP COMPLICATIONS Time Seen by Provider: 06/05/25 11:36 Source: patient Mode of arrival: walk-in Limitations: no limitations History of Present Illness HPI narrative: The patient is a 34-year-old female who had lumpectomy done in [facility] almost a week, patient was just evaluated here in our ER 3 days ago for hematoma in her area of lumpectomy, the patient is coming to the ER today complaining of left jaw pain as well as left neck pain anteriorly. With sometimes difficulty swallowing. No difficulty speaking no other concerns no neck pain No chest pain no other concerns Related Data Home Medications ?Medication ?Instructions ?Recorded ?Confirmed duloxetine 60 mg capsule,delayed 60 mg PO BID 06/10/23 06/05/25 release lamotrigine 25 mg tablet 100 mg PO QDAY 04/08/24 06/05/25 gabapentin 100 mg capsule 600 mg PO TID 01/23/25 06/05/25 trazodone 100 mg tablet 200 mg PO .qhs 01/23/25 06/05/25 nifedipine 30 mg tablet,extended 30 mg PO BEDTIME 06/02/25 06/05/25 release Previous Rx's ?Medication ?Instructions ?Recorded ondansetron 4 mg disintegrating 4 mg PO Q4H PRN nausea and 04/12/25 tablet vomiting 3 days #6 tabs acetaminophen 300 mg-codeine 30 mg 1 tab PO Q6H PRN pain 4 days #15 06/02/25 tablet tabs methylprednisolone 4 mg tablets in 4 mg PO .as directed #21 ea 06/05/25 a dose pack (Medrol (Matthew)) Allergies Allergy/AdvReac Type Severity Reaction Status Date / Time buspirone (From BuSpar) Allergy Intermediate tachycardia Verified 06/05/25 11:06 aripiprazole (From Abilify) Allergy Unknown Verified 06/05/25 11:06 COCONUT Allergy Mild Hives Uncoded 06/05/25 11:06 Opioid HPI Opioid Management Most Recent Opioid Data: Last Pain Scale 7 Today, 11:54 Last ED Pain Assessment Today, 11:54 Ur Phencyclidine Scrn, (NEGATIVE) Negative 07/22/24, 13:51 Review of Systems ROS Status of ROS 10 or more systems reviewed and unremarkable except as noted in history and below PFSH PFSH Social History Smoking status: Current every day smoker Little interest or pleasure in doing things: not at all Feeling down, depressed, or hopeless: not at all Exam Narrative Exam Narrative: Nurses notes and vital signs reviewed and patient is not hypoxic. General: Well-appearing and in no apparent distress. Skin: Warm, dry, no pallor noted. No rash. Head: Normocephalic, atraumatic. Neck: Supple, non-tender. Mild tenderness on palpation of the left anterior cervical area which is mostly small lymph node Eye: Pupils are equal, round and EOMI. No scleral icterus. Ears, Nose, Mouth, and Throat: TM are clear, no nasal mucosal hypertrophy. Oral mucosa is moist, very mild posterior pharynx erythema, no tenderness on palpation of the floor of the mouth there is no compromise of the airway., uvula is midline -.patient wearing dentures in her upper teeth and have a good dental hygiene of the lower teeth Left lower anterior lymphadenopathy in the cervical area Cardiovascular: Regular Rate and Rhythm without murmur, gallop or rub. Respiratory: No accessory muscle use or respiratory distress. Lungs are clear to auscultation, no wheezing, rales or rhonchi Chest Wall: no tenderness, a scar of previous surgery almost 3 cm that is healing well with no signs of infection no fluctuation no tenderness on palpation no redness hotness or any signs of infection on the left lateral aspect of the breast just below the axilla. Back: No midline thoracic or lumbar vertebral tenderness. No CVA tenderness Musculoskeletal: normal ROM, no calf or popliteal tenderness, no lower extremity edema/swelling GI: Abdomen is soft, non-distended. Normal bowel sounds. No masses appreciated. No tenderness to palpation. No rebound, guarding, or rigidity noted. Neurological: A&O x4. No cranial nerve dysfunction observed. No truncal ataxia. Moves all extremities. Sensation intact. Psychiatric: Cooperative and interactive. Normal mood and affect. Constitutional Vital Signs, click to edit/add: Last Vital Signs Temp 98.2 F 06/05/25 11:06 Pulse 77 06/05/25 11:06 Resp 16 06/05/25 11:06 BP 133/93 H 06/05/25 11:06 Pulse Ox 98 06/05/25 11:06 O2 Del Method Room Air 06/05/25 11:06 Course Vital Signs Vital signs: Vital Signs Temperature 98.2 F 06/05/25 11:06 Pulse Rate 77 06/05/25 11:06 Respiratory Rate 16 06/05/25 11:06 Blood Pressure 133/93 H 06/05/25 11:06 Pulse Oximetry 98 06/05/25 11:06 Oxygen Delivery Method Room Air 06/05/25 11:06 Temperature 98.2 F 06/05/25 11:06 Pulse Rate 77 06/05/25 11:06 Respiratory Rate 16 06/05/25 11:06 Blood Pressure 133/93 H 06/05/25 11:06 Pulse Oximetry 98 06/05/25 11:06 Oxygen Delivery Method Room Air 06/05/25 11:06 Medical Decision Making MDM Narrative Medical decision making narrative: The patient EKG showing sinus rhythm with a heart rate of [address] elevation or depression No signs of infection at the hematoma site where the patient had lumpectomy Mild erythema of the pharynx which could be secondary to a viral illness or possibly just postop The patient strep test was negative CBC and chemistry shows no acute pathology with a negative troponin and that was obtained because the patient history of show pain Patient also had Medrol Dosepak started after she was given steroid here in the ER to cover for inflammation The patient is to follow up with primary care physician in next 2-3 days or to return to the emergency department should any of the signs or symptoms worsen or new symptoms develop. The patient agrees with the following Diagnosis and Treatment plan and the patient will be discharged home. t Lab Data Labs: Lab Results 06/05/25 06/05/25 Range/Units 11:51 11:54 WBC 9.4 (4.0-11.0) 10^3/uL RBC 3.70 L (4.20-5.40) 10^6/uL Hgb 11.8 L (12.0-16.0) g/dL Hct 35.6 L (36.0-48.0) % MCV 96.2 (81.0-99.0) fL MCH 31.9 (26.7-34.0) pg MCHC 33.1 (29.9-35.2) g/dL RDW 14.2 (11.0-15.0) % Plt Count 305 (150-450) 10^3/uL MPV 10.9 (9.5-13.5) fL Neut % (Auto) 63.5 (43.0-75.0) % Lymph % (Auto) 24.3 (20.5-60.0) % Blount % (Auto) 7.8 (1.7-12.0) % Eos % (Auto) 3.5 (0.9-7.0) % Baso % (Auto) 0.6 (0.2-2.0) % Neut # (Auto) 6.0 (1.4-6.5) 10^3/uL Lymph # (Auto) 2.3 (1.2-3.8) 10^3/uL Blount # (Auto) 0.7 (0.3-0.8) 10^3/uL Eos # (Auto) 0.3 (0.0-0.7) 10^3/uL Baso # (Auto) 0.1 (0.0-0.1) 10^3/uL Abs Immat Gran (auto) 0.03 (0.00-0.03) 10^3/uL Imm/Tot Granulo (auto) 0.3 (0.0-0.5) % Sodium 138 (136-145) mmol/L Potassium 3.8 (3.5-5.1) mmol/L Chloride 105 (98-107) mmol/L Carbon Dioxide 26.9 (21.0-32.0) mmol/L Anion Gap 9.9 BUN 13.0 (7.0-18.0) mg/dL Creatinine 0.59 (0.55-1.02) mg/dL Est GFR ( Amer) >60 (>=60 mL/min/1.73m^2) Est GFR (Non-Af Amer) >60 (>=60 mL/min/1.73m^2) BUN/Creatinine Ratio 22.0 Glucose 89 (74-106) mg/dL Calcium 8.8 (8.5-10.1) mg/dL Total Bilirubin 0.3 (0.2-1.0) mg/dL AST 16 (15-37) U/L ALT 22 (14-59) U/L Alkaline Phosphatase 59 (46-116) U/L Troponin I High Sens 4.1 (4.0-51.3) pg/mL Total Protein 6.8 (6.4-8.2) g/dL Albumin 3.3 L (3.4-5.0) g/dL Globulin 3.5 g/dL Albumin/Globulin Ratio 0.9 Streptococcus Screen Negative Discharge Plan Discharge Chief Complaint: Recheck/Abnormal Lab/Rx Clinical Impression: Pain in throat, Neck pain Patient Disposition: Home, Self-Care Time of Disposition Decision: 12:31 Condition: Good Prescriptions / Home Meds: New methylprednisolone [Medrol (Matthew)] 4 mg tablets,dose pack 4 mg PO .as directed Qty: 21 0RF Rx Instructions: please use as per the direction of the Dose Pack No Action duloxetine 60 mg capsule,delayed release(DR/EC) 60 mg PO BID lamotrigine 25 mg tablet 100 mg PO QDAY gabapentin 100 mg capsule 600 mg PO TID trazodone 100 mg tablet 200 mg PO .qhs ondansetron 4 mg tablet,disintegrating 4 mg PO Q4H PRN (Reason: nausea and vomiting) 3 Days Qty: 6 0RF nifedipine 30 mg tablet extended release 30 mg PO BEDTIME acetaminophen-codeine 300-30 mg tablet 1 tab PO Q6H PRN (Reason: pain) 4 Days Qty: 15 0RF Print Language: Ukrainian Instructions: Neck Pain (ED) Referrals: KAYLEE AMES [Primary Care Provider, Unknown] - 1 week
[2025-06-05 12:10] LABS: Hematocrit 35.6 % (36.0-48.0); Hemoglobin 11.8 g/dL (12.0-16.0); Immature Granulocytes Abs Auto 0.03 10^3/uL (0.00-0.03); Immature Granulocytes Pct Auto 0.3 % (0.0-0.5); Lymphocytes Absolute Auto 2.3 10^3/uL (1.2-3.8); Mean Corpuscular HGB Conc 33.1 g/dL (29.9-35.2); Mean Corpuscular Hemoglobin 31.9 pg (26.7-34.0); Mean Corpuscular Volume 96.2 fL (81.0-99.0); Platelet Count 305 10^3/uL (150-450); Red Blood Count 3.70 10^6/uL (4.20-5.40); White Blood Count 9.4 10^3/uL (4.0-11.0)
[2025-06-05 12:19] LABS: Alanine Aminotransferase 22 U/L (14-59); Albumin Globulin Ratio 0.9; Albumin Level 3.3 g/dL (3.4-5.0); Alkaline Phosphatase 59 U/L (46-116); Anion Gap 9.9; Aspartate Amino Transferase 16 U/L (15-37); Blood Urea Nitrogen 13.0 mg/dL (7.0-18.0); Calcium 8.8 mg/dL (8.5-10.1); Carbon Dioxide 26.9 mmol/L (21.0-32.0); Chloride 105 mmol/L (98-107); Estimated GFR (African America >60 (>=60 mL/min/1.73m^2); Estimated GFR (Non-African Ame >60 (>=60 mL/min/1.73m^2); Globulin 3.5 g/dL; Glucose 89 mg/dL (74-106); Potassium 3.8 mmol/L (3.5-5.1); Sodium 138 mmol/L (136-145); Total Protein 6.8 g/dL (6.4-8.2)
== END 2025-06-05 12:53 | disposition home or self-care (01) ==
PROVIDERS: Emergency Provider Emergency Medicine
DX: R07.0 Pain in throat (principal); M54.2 Cervicalgia; F17.200 Nicotine dependence, unspecified, uncomplicated; Z98.890 Other specified postprocedural states
CPT/HCPCS: 36415; 80053; 84484; 85025; 87070; 87880; 93005; 96374; 99284; J2919

== ENCOUNTER 2025-06-13 09:57 | Emergency (ER) | payer MEDICARE, MEDICAID, SELFPAY ==
--- OUTSIDE RECORDS SUMMARY | 2025-06-06 09:55 | XMS_ITS ---
Author Name Auto Generated Organization OHIP Support Name Relationship Address Phone Steffen Chou Next of [address] [place] [address] + [facility], Steffen Next of Kin [address] [place] [address], [place] [address] + [place], Steffen Next of Kin [address] [place] [address], [place] [address] + Rabatin, Steffen Next of Kin [address] [place] [address], [place] [address] + Rabatin, Steffen Next of Kin [address] [place] [address], [place] [address] + Rabatin, Steffen Next of Kin [address] [place] [address], [place] [address] + Rabatin, Steffen Next of Kin [address] [place] [address], [place] [address] + Rabatin, Steffen Next of Kin [address] [place] [address], [place] [address] + RABATIN, STEFFEN Next of Kin Unknown [phone] Rabatin, Steffen Next of Kin [address] [place] [address], [place] [address] + RABATIN, STEFFEN Next of Kin Unknown [phone] RABATIN, STEFFEN Next of Kin Unknown [phone] Rabatin, Steffen Next of Kin [address] [place] [address], [place] [address] + Rabatin, Steffen Next of Kin [address] [place] [address], [place] [address] + JOSÉ ANTONIO, STEFFEN Next of Kin Unknown [phone] José Antonio, Steffen Next of Kin [address] [place] [address] + RABATIN, STEFFEN Next of Kin [address] [facility] [place] [address] + [facility] Next of Kin [address] [place] [address] Unavailable JOSÉ ANTONIO, STEFFEN Next of Kin Unknown [phone] JOSÉ ANTONIO, STEFFEN Next of Kin [address] [facility] [address] + WILVER HUMMEL Next of Kin Unknown [phone] [facility] Next of Kin [address] [place] [address] Unavailable Care Team Providers Care Electrician Station Assistant Name Role Phone YOVANA HOWARD Attending Unavailable SHAZIA BAEZA Attending Unavailable CORBY LARSEN Attending Unavailable CORBY LARSEN Attending Unavailable AALIYAH ZAMUDIO H Attending Unavailable MOLLY WAGNER Referring Unavailable ITZBROOKE, AALIYAH H Attending Unavailable Sailaja Anderson Admitting Unavailable Sailaja Anderson Attending Unavailable NON STAFF Primary Care Unavailable Jacob Baker Admitting Unavailable Jacob Baker Attending Unavailable NON STAFF Primary Care Unavailable Corby Larsen Admitting Unavailab Corby Apodaca Attending Unavailab le NON STAFF Primary Care Unavailable Itzkoaimeetz, Aaliyah Admitting Unavailable Tito, Aaliyah Attending Unavailable Jennie Durand Primary Care Unavailable Itzkowitz, Aaliyah Admitting Unavailable Itzbrooke, Aaliyah Attending Unavailable Jennie Durand Primary Care Unavailable Itzkoraúl, Aaliyah Attending Unavailable Ramyazbrooke, Aaliyah Admitting Unavailable Jennie Durand Primary Care Unavailable Beba Keen Primary Care Unavailable Efrem Victor Admitting Unavailab le Efrem Victor Attending Unavailab le Itzkoaimeetz, Aaliyah Admitting Unavailable Itzbrooke, Aaliyah Attending Unavailable Jennie Durand Primary Care Unavailable CARSON, MADALYN Primary Care Unavailable CATE TYLER Attending Unavailable CARSON, MADALYN Primary Care Unavailable CARSON, MADALYN Attending Unavailable CARSON, MADALYN Primary Care Unavailable CARSON, MADALYN Referring Unavailable CARSON, MADALYN Primary Care Unavailable CARSON, MADALYN Attending Unavailable CARSON, MADALYN Primary Care Unavailable MARY LOU ASIF Referring Unavailable CARSON, MADALYN Primary Care Unavailable ASHWINI, VANNESA Schaefer Attending Lilly MARADIAGA, VANNESA Schaefer Primary Care Lilly MARADIAGA, VANNESA Schaefer Admitting UnavaKURT Fowler Attending Unavailable KURT BALBUENA Attending Unavailable Babar Mayers Referring Unavailable Babar Mayers Attending Unavailable Sami Brewster Attending Unavailable MOLLY WAGNER Referring Unavailable ESHAKURT SHARMA Attending Unavailable KURT BALBUENA Attending Unavailable Bryan Avila Attending Unavailable VANNESA MARADIAGA [facility] K[facility]T Vu A Attending Unavailable KURT BALBUENA A Attending Unavailable KURT BALBUENA A Attending Unavailable Jennie Durand Referring Unavailable Jennie Durand Attending Unavailable MD Jak Peace Attending Unavailable NONE, XXXX Referring Unavailable MD Jak Peace Attending Unavailable MOLLY WAGNER Referring Unavailable Fernandez Daniels Consulting Unavailable MOLLY WAGNER Attending Unavailable MOLLY WAGNER Admitting Unavailable MOLLY WAGNER Referring Unavailable MD Fernandez Daniels Consulting Unavailable Fernandez Daniels Consulting Unavailable MD Jak Peace Admitting Unavailable MD Jak Peace Referring Unavailable MD Jak Peace Attending Unavailable MOLLY WAGNER Attending Unavailable BERNARDMOLLY BUCHANAN Admitting Unavailable MOLLY WAGNER Referring Unavailable Babar Mayers Referring Unavailable Babar Mayers Attending Unavailable Babar Mayers Admitting Unavailable Babar Mayers Referring Unavailable Babar Mayers Attending Unavailable UKRT BALBUENA Admitting Unavailable KURT BALBUENA Attending Unavailable SWAPNA RICK Attending Unavailable SWAPNA RICK Admitting Unavailable VANNESA MARADIAGA Attending VANNESA Schultz Primary Care Lilly MARADIAGA, ORTHODONTIST ASSISTANTKina Schaefer Admitting Bryan Hardwick Attending Unavailable Jose Correia Attending Unavailable JUANPABLO Kate Attending Unavailabl e Humble, JUANPABLO Ariza Admitting Unavailabl e David Zazueta Referring Unavailable Humble, JUANPABLO Ariza Attending Unavailabl e Humble, JUANPABLO Ariza Admitting Unavailabl e Jennie Durand Referring Unavailable Humble, JUANPABLO Ariza Referring Unavailabl e Humble, JUANPABLO Ariza Attending Unavailabl e Humble, JUANPABLO Ariza Admitting Unavailabl e Babar Mayers Admitting Unavailable Babar Mayers Attending Unavailable Jennie Durand Referring Unavailable David Zazueta Attending Unavailable David Zazueta Admitting Unavailable RhDavid rivera Referring Unavailable Durand Jennie D Admitting Unavailable Durand Jennie D Referring Unavailable Ladarius Jennie Jeni Attending Unavailable MD Jak Peace Referring Unavailable MD Jak Peace Attending Unavailable MD Jak Peace Admitting Unavailable DurandJennie badillo Admitting Unavailable Jennie Durand Attending Unavailable David Zazueta Attending Unavailable David Zazueta Admitting Unavailable KURT BALBUENA Admitting Unavailable KURT BALBUENA Attending Unavailable SWAPNA RICK Attending Unavailable SWAPNA RICK Admitting Unavailable YOVANA HOWARD Referring Unavailable PROBLEMS DATE TYPE CONDITION / CODE ATTENDING STATUS [facility] 04/26/2025 Unknown Other specified disorders of breast / N64.89(ICD-10) [facility] Unknown Hypertrophy of breast / N62(ICD-10) [facility] 12/16/2024 Unknown Ataxia, unspecif ied / R27.0(ICD-10) Corby Larsen [facility] 12/12/2024 Unknown Raynaud's syndro me without gangrene / I73.00(ICD-10) Jacob Baker [facility] 09/15/2024 Unknown Weakness / R53.1(ICD-10) Sailaja Anderson [facility] 08/08/2024 Admitting Diagnosis Palpitations / R00.2(ICD-10) [facility] 08/08/2024 Admitting Diagnosis Shortness of breath / R06.02(ICD-10) [facility] 08/08/2024 Admitting Diagnosis Body mass index (BMI) 29.0-29.9, adult / Z68.29(ICD-10) [facility] 08/08/2024 Admitting Diagnosis Family history of ischemic heart disease and other diseases of the circulatory system / Z82.49(ICD-10) [facility] 08/08/2024 Admitting Diagnosis Angina pectoris, unspecified / I20.9(ICD-10) [facility] 08/08/2024 Admitting Diagnosis Nicotine dependence, unspecified, uncomplicated / F17.200(ICD-10) [facility] 07/17/2023 Admitting Diagnosis Essential (primary) hypertension / I10(ICD-10) [facility] 07/11/2024 Active Abnormal mammogr am of left breast / R92.8(ICD-10) NA Active [facility] PROCEDURES No Procedure Records Found RESULTS MM SURGICAL SPECIMEN LT Observed: 2024 2:08 PM Status: COMPLETED Source: [facility] [address] [place] [address] Mammography Report Signed Patient: Shazia Chou MR#: [id number] : 1990 Acct:[id number] Age/Sex: 34 / F Adm Date: 05/30/25 Loc: [place] Room: Type: [facility] Attending Dr: Aaliyah Zamudio DO Ordering Provider: Aaliyah Zamudio DO Date of Service: 05/30/25 Procedure(s): MM surgical specimen LT Accession Number(s): ([id number]) MM/MM surgical specimen LT: POST LUMPECTOMY Copies to: Jennie Landrum DO CLINICAL INFORMATION: [Left] breast lumpectomy. SPECIMEN RADIOGRAPH: A single radiograph of the [left] breast specimen showed a metallic marking clip and radioiodine seed within the specimen. The images were reviewed by the attending physician during the procedure. Impression dictated by: Denny Escalante M.D. 05/30/2025 2:10 PM Dictation Location: [place] [address] Dictated By: Denny Escalante MD 05/30/25 1408 Signed By: <Electronically signed by Denny Escalante MD in OV> 05/30/25 1410 L Observed: 05/30/2025 9:42 AM Status: F Source: [facility] ----- ------- Specimen: [id number] Received: 05/30/25 Status: FABBY Verma Num: [id number] Spec Type: Surgical Subm Dr: Aaliyah Zamudio, DO Tissues: A Breast Lumpectmy/Mass - Requiring Micros Eval of Margins (L BREAST TISSUE AN Procedures: HE/18, Gross/Micro L5 ----- ------- Age/ Patient Sex Location Account Attending Physician ----- ------- Shazia Chou 34/F [place] [id number] Aaliyah Zamudio, DO ----- ------- SPEC NUM: [id number] RECD: 05/30/25 STATUS: FABBY VERMA NUM: [id number] JUAN: 05/30/25 [facility] DR: Aaliyah Zamudio, ENTERED: 05/30/[address]: LENCHO TYPE: Surgical DEPT: S ENTERED BY: [id number] RECV BY: [id number] ORDERED: HE/18, Gross/Micro L5 ORDERED: HE/18, Gross/Micro [...] with ink as follows: Superior-Red Inferior-Blue Medial-Yellow Lateral-Pike Anterior-Green Posterior-Black The lumpectomy is 4 cm superior to inferior, 5 cm medial to lateral, and 2 cm anterior to posterior. The specimen is serially sectioned progressing from lateral to medial into 11 levels. Within level 2?11 is a jimenez-white, densely fibrous area, 3.5 cm superior to inferior, 4 cm lateral to medial, and 2 cm anterior to posterior. Within the densely fibrous of level 6 is a ribbon clip. A radioactive seed is identified in level 7 that is transferred to nuclear medicine. ----- ------- Specimen: [id number] Received: 05/30/25 Status: FABBY Verma Num: [id number] Spec Type: Surgical Subm Dr: Aaliyah Zamudio DO Tissues: A Breast Lumpectmy/Mass - Requiring Micros Eval of Margins (L BREAST TISSUE AN Procedures: , Gross/Micro L5 ----- ------- Patient: Shazia Chou [id number] (Continued) ----- ------- Specimen: [id number] Received: 05/30/25 (Continued) Gross Description (Continued) Signed (signature on file) Terry Quintanilla MD 05/31/25 1332 ----- ------- Specimen: [id number] Received: 05/30/25 Status: FABBY Verma Num: [id number] Spec Type: Surgical Subm Dr: Aaliyah Zamudio, DO Tissues: A Breast Lumpectmy/Mass - Requiring Micros Eval of Margins (L BREAST TISSUE AN Procedures: , Gross/Micro L5 ----- ------- Patient: Shazia Chou [id number] (Continued) ----- ------- Specimen: [id number] Received: 05/30/25 (Continued) Gross Description (Continued) The densely fibrous [...] area A16 Level 10, densely fibrous area A17?A18 Level 11, medial margin (to include densely fibrous area) (18, ns, T72-6878 A)MiaG Microscopic Description Microscopic examination is performed. CPT Codes 44023 ----- ------- ----- ------- Specimen: [id number] Received: 05/30/25 Status: FABBY Verma Num: [id number] Spec Type: Surgical Subm Dr: Aaliyah Zamudio, DO Tissues: A Breast Lumpectmy/Mass - Requiring Micros Eval of Margins (L BREAST TISSUE AN Procedures: SULEIMAN/Sivan, Gross/Micro L5 ----- ------- Patient: Shazia Chou [id number] (Continued) ----- ------- Signed (signature on file) Terry Quintanilla MD 05/31/25 1332 US BREAST NEEDLE LOC LT Observed: 2024 11:31 AM Status: COMPLETED Source: [place] [address] Ultrasound Report Signed Patient: Shazia Chou MR#: [id number] : 1990 Acct:[id number] Age/Sex: 34 / F ADM Date: 05/30/25 Loc: [place] Room: Type: [facility] Attending Dr: Aaliyah Zamudio DO Ordering Provider: Aaliyah Zamudio DO Date of Service: 05/29/25 US/US breast needle loc LT: LEFT U/S GUIDED RADIOACTIVE SEED LOC ([id number]) MM/MM diagnostic mammo LT w/CAD: POST U/S [...] Hadley M.D. 05/29/2025 11:38 AM Dictation Location: [facility] Tech: Molly Price Transcribed By: PWS 05/29/25 1138 Dictated By: Clinton Hadley DO 05/29/25 1131 Signed By: <Electronically signed by Clinton Hadley DO in OV> 05/29/25 1138 US BREAST NEEDLE LOC LT Observed: 2024 11:31 AM Status: COMPLETED Source: [place] [address] Ultrasound Report Signed Patient: Shazia Chou MR#: [id number] : 1990 Acct:[id number] Age/Sex: 34 / F ADM Date: 05/04/25 Loc: [place] Room: Type: [facility] Attending Dr: Aaliyah Zamudio DO Ordering Provider: Aaliyah Zamudio DO Date of Service: 05/29/25 US/US breast needle loc LT: LEFT U/S GUIDED RADIOACTIVE SEED LOC ([id number]) MM/MM diagnostic mammo LT w/CAD: POST U/S [...] Clinton Hadley DO in OV> 05/29/25 1138 MM DIAGNOSTIC MAMMO LT W/CAD Observed: 04/26/2025 10:09 AM Status: COMPLETED Source: [facility] [place] [address] Ultrasound Report Signed Patient: Shazia Chou MR#: [id number] : 1990 Acct:[id number] Age/Sex: 34 / F ADM Date: 04/26/25 Loc: [place] Room: Type: [facility] Attending Dr: Aaliyah Zamudio DO Ordering Provider: Aaliyah Zamudio DO Date of Service: 04/26/25 MM/MM diagnostic mammo LT w/CAD: follow up for Left breast Upper outer quadrant ([id number]) US/US breast LT limited: follow with mamm [...] Location: [facility] Tech: Shazia Vaughn Transcribed By: MARKY 04/26/25 1015 Dictated By: Denny Escalante MD 04/26/25 1009 Signed By: <Electronically signed by Denny Escalante MD in OV> 04/26/25 1015 HEART AND VASCULAR OFFICE/CLINIC NOTE Observed: 04/25/2025 10:10 AM Status: F Source: [facility] Heart and Vascular Office/Cl inic Note Chief Complaint f/u after testing History [...] Jak W, CAR Within 3 months [address] [place] [address]- Additional Instructions: Nata BHAKTA, Jak Mesa, CAR Within 3 months [address] [place] [address]- Additional Instructions: Problem List/Past Medical [...] Vraylar, Oral, Daily work excuse, 0 Allergies Abilify (suicidal) BuSpar (palpitations) Coconut Oil (Swelling, Itching) Social History Alcohol - Medium Risk, 07/01/2021 Substance Abuse - Denies Substance Abuse, 02/11/2019 Never, 02/17/2025 Never., 09/15/2024 Tobacco - High Risk, 02/07/2020 10 or more cigarettes (1/2 pack or more)/day in last 30 days Tobacco Use:., 04/21/2025 Family History Cardiac arrest: Mother and Grandparent. [...] Recorded influenza virus vaccine, inactivated 07/09/2020 Recorded [1] XR Chest 2 Views; Julio Snyder MD 02/16/2025 14:18 EDT Result Comment: Electronical ly Signed By: Nata BHAKTA, Jak W\.br\Date and Time Signed: 04/27/25 15:42 EDT\.br\Electronically Co-Signed By: Roxana Shipman\.br\Date and Time Co-Signed: 04/27/25 15:40 EDT NM MYOCARDIAL SPECT REST/STRESS 1 DAY Observed: 04/17/2025 7:57 AM Status: F Source: [facility] Exam Date/Time: 04/17/2025 11:57 EDT Reason for Exam: R00.2;Chest pain Report [facility] [address] [place] [address] Nuclear Stress Report Name: SHAZIA CHOU Study Date: 04/17/2025 08:00 AM Patient Location: [facility] : 1990 (M/d/yyyy) Gender: Female Age: 34 yrs Ethnicity: WHT Reason For Study: R00.2;Chest pain Ordering Physician: Jak Peace Referring Physician: Jak Pecae Protocol 19039 Pharmacologic Lexiscan stress with Isotope. Study Protocol: [...] by: Catalino Vaca MD Transcribed by: [facility] Technologist: SHAHZAD PULMONOLOGY OFFICE/CLINIC NOTE Observed: 03/29/2025 10:28 AM Status: F Source: [facility] Pulmonology Office/Clinic No te History of Present Illness Here for evaluation [...] Narcisa BHAKTA, Sami Longoria, PUL, GREER [address] [facility] [place] [address]- Additional Instructions: after his testing is completed [...] Lumbar puncture to lower intracranial pressure. Medications baclofen 5 mg oral tablet, 5 mg= 1 tab(s), Oral, TID, PRN Cymbalta, 60 mg, Oral, BID ferrous sulfate 325 mg Tab gabapentin 600 mg Tab, 600 mg= 1 tab(s), Oral, TID, 2 refills lamotrigine, 100 mg, Oral, Daily Multi-Day Plus Minerals, Oral, Daily semaglutide, 2.4 mg, SubCutaneous, qWeek trazodone, 100 mg, Oral, Once a day (at bedtime) Tylenol, 325 mg, Oral, q4hr, PRN Vraylar, Oral, Daily work excuse, 0 Allergies Abilify (suicidal) BuSpar (palpitations) Coconut Oil (Swelling, Itching) Social History Alcohol - Medium Risk, 07/01/2021 Substance Abuse - Denies Substance Abuse, 02/11/2019 Never, 02/17/2025 Never., 09/15/2024 Tobacco - High Risk, 02/07/2020 10 or more cigarettes (1/2 pack or more)/day in last 30 days Tobacco Use:., 02/17/2025 Family History Cardiac arrest: Mother and Grandparent. [...] Recorded influenza virus vaccine, inactivated 07/09/2020 Recorded Result Comment: Electronical ly Signed By: Sami Brewster MD.br\Date and Time Signed: 03/29/25 11:39 EDT EVENT MONITOR Observed: 03/10/2025 1:50 PM Status: F Source: [facility] Event Monitor TWO-WEEK EVENT MONITOR DATES OF [...] rhythm. READ BY: terrell Arredondo Dictated: 03/10/2025 [id number] Transcribed: 03/14/2025 cc:*Jak Peace M.D. Result Comment: Electronical ly Signed By: Catalino Vaca MD\Date and Time Signed: 03/15/25 07:49 EDT CONSULTATION NOTE Observed: 03/09/2025 1:03 PM Status: F Source: [facility] Consultation Note Patient is presenting with a history [...] with any questions or concerns that arise. Result Comment: Electronical ly Signed By: Babar Mayers DObr\Date and Time Signed: 03/09/25 13:04 EDT OPERATIVE REPORT Observed: 03/03/2025 8:46 AM Status: F Source: [facility] Operative Report Diagnosis: m47.816, lumbar spondyloarthropathy Procedure: Bilateral [...] patient agrees to continue currently prescribed/recommended therapies. Result Comment: Electronical ly Signed By: Babar Mayers DO\Date and Time Signed: 03/03/25 08:46 EDT MAIN OR INTRAOPERATIVE RECORD Observed: 03/03/2025 8:36 AM Status: F Source: [facility] Main OR Intraoperative Recor d IntraOp Document Type [facility] Summary Primary Physician: Babar Mayers DO Finalized Date/Time: 03/03/25 08:45:29 Pt. Name: SHAZIA CHOU Isreal Montgomery/Sex: 1990 Female Med Rec #: [id number] Physician: Babar Mayers DO Financial #: [id number] Pt. Type: P Room/Bed: / Admit/Disch: 03/03/25 [...] Lulu Bellamy Role Performed Surgeon - Primary Development Manager - Primary Scrub - Primary Time In 03/03/25 08:33:00 03/03/25 08:33:00 03/03/25 08:33:00 Time Out 03/03/25 08:45:00 03/03/25 08:45:00 03/03/25 08:45:00 Procedure MEDIAL BRANCH MEDIAL BRANCH MEDIAL BRANCH BLOCK(Bilateral) BLOCK(Bilateral) BLOCK(Bilateral) Comments Last Modified By: Giorgi LARA, Corby Rand RN, Corby Bell RN 03/03/25 08:44:15 03/03/25 08:44:15 03/03/25 08:44:15 Entry 4 Case Attendee Amina Allen (R) Role Performed Thermostat Maker Time In 03/03/25 08:33:00 Time Out 03/03/25 [...] Antibiotic No Time Out Corby Rand RN, Markos LARA, Talib Patino DO, Bradford A., Christman RT(R), [...] and tissue Entry 1 Skin Integrity Intact, Lolo, Warm, & Skin Abnormality No Dry Outcomes [...] Under Knees Press Points Checked Yes By Corby Rand RN Outcomes Met? Yes Last Modified By: Corby Rand RN 03/03/25 08:34:36 Post-Care Text: The patient is free from signs and symptoms of injury related to positioning Transport To OR FT Pre-Care Text: Transports according to individual needs. Evaluates for signs and symptoms of skin and tissue injury as a result of transfer or transport Entry 1 Via Cart By Corby Rand RN Safety Precautions Safety Strap, Side Outcomes Met? Yes Rails Up Last Modified By: Corby Rand RN 03/03/25 08:34:41 Post-Care Text: The patient is free from signs and symptoms of injury related to transfer/transport Skin Prep FTPM Pre-Care Text: Performs skin preparations Entry 1 Procedure MEDIAL BRANCH Prep Area BLOCK INJECTION SITE BLOCK(Bilateral) Prep Agents Chloraprep/Dry Prior to Start Dry Time 03/03/25 08:33:00 Draping Stop Dry Time 03/03/25 08:36:00 Hair Removal Methods Not Indicated By Lulu Burrows RN Outcomes Met? Yes Last Modified By: Corby Rand RN 03/03/25 08:34:56 Post-Care Text: The patient is free from signs and symptoms of infection Departure From OR FT Pre-Care Text: Transports according to individual needs. Evaluates for signs and symptoms of skin and tissue injury as a result of transfer or transport. Entry 1 Via Cart Safety Precautions Safety Strap, Side Rails Up PostOp Destination PACU Transported By Corby Rand RN Patient Status Stable Report Given Edith Zabala RN To/Hand Off Communication Skin. Condition Dry, Intact Airway Maintenance Oxygen in Use? No Outcomes Met? Yes Last Modified By: Corby Rand RN 03/03/25 08:35:09 Post-Care Text: The patient is free from signs and symptoms of injury related to transfer/transport Dressing/Packing FTPM Pre-Care Text: Administers care to wound sites Entry 1 Type Dressing Site and Details 4x4 and opsite Outcomes Met? Yes Last Modified By: Corby Rand RN 03/03/25 08:35:18 Post-Care Text: The patient is free from signs and symptoms of infection Medication Administration FTPM Pre-Care Text: Verifies allergies, administers prescribed medications and solutions, administers prescribed antibiotic therapy and immunizing agents as ordered, evaluates response to medications Administers prescribed medications and solutions Entry 1 Route of Admin Block Expiration Date Yes Verified Ordered By Babar Mayers DO Transcribed/To Corby Rand RN Field By Administered By Babar Mayers DO Outcomes Met? Yes Last Modified By: Corby Rand RN 03/03/25 08:35:23 Post-Care Text: The patient received appropriate medication(s) safely administered during the perioperative period X-Rays & Images FTPM Pre-Care Text: Assess history of previous radiation exposure and implements protective measures Entry 1 X-Ray Type C-Arm Contrast Used? Yes Outcomes Met? Yes Last Modified By: Corby Rand RN 03/03/25 08:35:30 Post-Care Text: The patient is free from signs and symptoms of radiation injury Case Comments <None> Finalized By: Corby Rand RN Document Signatures Signed By: Corby Rand RN 03/03/25 08:45 MAIN OR PREOPERATIVE RECORD Observed: 8:30 AM Status: F Source: [facility] Main OR Preoperative Record Holding Area Document Type FTPM Summary Primary Physician: Babar Mayers DO Finalized Date/Time: 03/03/25 07:33:54 Pt. Name: SHAZIA CHOU/Sex: 1990 Female Med Rec #: [id number] Physician: Babar Mayers DO Financial #: [id number] Pt. Type: P Room/Bed: / Admit/Disch: 03/03/25 [...] day? Patient states Yes Comment - Adult -Steffen postop adult Supervision supervision available Case Cancelled in No Holding Area see comments below for reason Last Modified By: Gabrielle Sultana RN 03/03/25 07:30:10 Finalized By: Gabrielle Sultana RN Document Signatures Signed By: Gabrielle Sultana RN 03/03/25 07:33 FERRITIN Collected: 03/02/2025 8:35 AM Status: F Source: [facility] TYPE CODE TESTS RESULT OUT OF RANGE REFERENCE UNITS LAB 75700873(LOINC) Ferritin Lvl 11 Normal 11-307 ng/ mL Performed By: #### [id number] # ### [facility] [address] [place] [address] IRON Collected: 8:35 AM Status: F Source: [facility] TYPE CODE TESTS RESULT OUT OF RANGE REFERENCE UNITS LAB 95133037(LOINC) Iron 156 High 35-153 microgra m/ dL Performed By: #### [id number] # ### [facility] [address] [place] [address] CBC W/INDICES Collected: 8:35 AM Status: F Source: [facility] TYPE CODE TESTS RESULT OUT OF RANGE REFERENCE UNITS LAB 04438881(LOINC) WBC 13.1 High 4.0-11.0 E9/L LAB 36224979(LOINC) RBC 3.9 Low 4.3-5.9 E12/L LAB 55867750(LOINC) HGB 13.2 Normal 12.0-16.0 gm/dL LAB [id number](LOINC) Hct 39.0 Normal 34.0-46.0 % LAB [id number](LOINC) RDW 14.4 High 10.9-14.2 % LAB [id number](LOINC) MCH 33.5 Normal 27.0-34.0 pg LAB [id number](LOINC) MCHC 33.8 Normal 31.4-36.0 gm/dL LAB [id number](LOINC) MCV 99.1 Normal 80.0-100.0 fL LAB [id number](LOINC) MPV 9.5 Normal 6.4-10.8 fL LAB [id number](LOINC) Platelet 325.0 Normal 150.0-500.0 E9/ L LAB [id number](LOINC) RBC Morph NORMAL Unknown Performed By: #### [id number] # ### [facility] [address] [place] [address] TIBC CALCULATED Collected: 8:35 AM Status: F Source: [facility] TYPE CODE TESTS RESULT OUT OF RANGE REFERENCE UNITS LAB [id number](LOINC) TIBC 403 High 250-400 microgra m/ dL LAB [id number](INC) Transferrin 288 Normal 200-370 mg/d L Performed By: #### [id number] #### [facility] [address] [place] [address] ED PATIENT EDUCATION NOTE Observed: 02/2025 9:08 PM Status: F Source: [facility] ED Patient Education Note Neurology Near-Syncope Near-syncope is when you suddenly feel like you might pass out or faint, but you do not actually lose consciousness. This may also be referred to as presyncope. During an episode of near-syncope, you may: ??? Feel dizzy, weak, light-headed, or like [...] not dangerous. However, near-syncope may be a sign of a serious medical problem, so it is important to seek medical care. Follow these instructions at home: Medicines ??? Take tpgn-skx-wsdnpde and prescription medicines only as told by [...] provider. Document Revised: 01/09/2022 Document Reviewed: 01/09/2022 [employer] Patient Education ? 2023 [email or web address]Pulmonary Medicine Acute Bronchitis, Adult Acute bronchitis is [...] cough may last longer. Allergies, asthma, and exposure to smoke may make the condition worse. What are the causes? This condition can be caused by germs and by substances that irritate the lungs, including: ??? Cold and flu viruses. The most common cause of this condition is the virus that causes the common cold. ??? Bacteria. This is less common. ??? Breathing in substances that irritate the lungs, including: ? Smoke from cigarettes and other forms of tobacco. ? Dust and pollen. ? Fumes from household cleaning products, gases, or burned fuel. ? Indoor or outdoor air pollution. What increases the risk? The following factors may make you more likely to develop this condition: ??? A weak body's defense system, also called the immune system. ??? A condition that affects your lungs and breathing, such as asthma. What are the signs or symptoms? Common symptoms of this condition include: ??? Coughing. This may bring up clear, yellow, or green mucus from your lungs (sputum). ??? Wheezing. ??? Runny or stuffy nose. ??? Having too much mucus in your lungs (chest congestion). ??? Shortness of breath. ??? Aches and pains, including sore throat or chest. How is this diagnosed? This condition is usually diagnosed based on: ??? Your symptoms and medical history. ??? A physical exam. You may also have other tests, including tests to rule out other conditions, such as pneumonia. These tests include: ??? A test of lung function. ??? Test of a mucus sample to look for the presence of bacteria. ??? Tests to check the oxygen level in your blood. ??? Blood tests. ??? Chest X-ray. How is this treated? Most cases of acute bronchitis clear up over time without treatment. Your health care provider may recommend: ??? Drinking more fluids to help thin your mucus so it is easier to cough up. ??? Taking inhaled medicine (inhaler) to improve air flow in and out of your lungs. ??? Using a vaporizer or a humidifier. These are machines that add water to the air to help you breathe better. ??? Taking a medicine that thins mucus and clears congestion (expectorant). ??? Taking a medicine that prevents or stops coughing (cough suppressant). It is not common to take an antibiotic medicine for this condition. Follow these instructions at home: ??? Take rsbt-pxt-mukxcpd and prescription medicines only as told by your health care provider. ??? Use an inhaler, vaporizer, or humidifier as told by your health care provider. ??? Take two teaspoons (10 mL) of honey at bedtime to lessen coughing at night. ??? Drink enough fluid to keep your urine pale yellow. ??? Do not use any products that contain nicotine or tobacco. These products include cigarettes, chewing tobacco, and vaping devices, such as e-cigarettes. If you need help quitting, ask your health care provider. ??? Get plenty of rest. ??? Return to your normal activities as told by your health care provider. Ask your health care provider what activities are safe for you. ??? Keep all follow-up visits. This is important. How is this prevented? To lower your risk of getting this condition again: ??? Wash your hands often with soap and water for at least 20 seconds. If soap and water are not available, use hand drawing tender. ??? Avoid contact with people who have cold symptoms. ??? Try not to touch your mouth, nose, or eyes with your hands. ??? Avoid breathing in smoke or chemical fumes. Breathing smoke or chemical fumes will make your condition worse. ??? Get the flu shot every year. Contact a health care provider if: ??? Your symptoms do not improve after 2 weeks. ??? You have trouble coughing up the mucus. ??? Your cough keeps you awake at night. ??? You have a fever. Get help right away if you: ??? Cough up blood. ??? Feel pain in your chest. ??? Have severe shortness of breath. ??? Faint or keep feeling like you are going to faint. ??? Have a severe headache. ??? Have a fever or chills that get worse. These symptoms may represent a serious problem that is an emergency. Do not wait to see if the symptoms will go away. Get medical help right away. Call your local emergency services (911 in the [place] Do not drive yourself to the hospital. Summary ??? Acute bronchitis is inflammation of the main airways (bronchi) that come off the windpipe (trachea) in the lungs. The swelling causes the airways to get smaller and make more mucus than normal. ??? Drinking more fluids can help thin your mucus so it is easier to cough up. ??? Take xdtj-mgd-brdeway and prescription medicines only as told by your health care provider. ??? Do not use any products that contain nicotine or tobacco. These products include cigarettes, chewing tobacco, and vaping devices, such as e-cigarettes. If you need help quitting, ask your health care provider. ??? Contact a health care provider if your symptoms do not improve after 2 weeks. This information is not intended to replace advice given to you by your health care provider. Make sure you discuss any questions you have with your health care provider. Document Revised: 12/11/2022 Document Reviewed: 01/01/2022 [email or web address] Patient Education ? 2023 [employer]. ED PATIENT SUMMARY Observed: 02/17/2025 9:08 PM Status: F Source: [facility] ED Patient Summary [place] [id number] Patient Discharge Instructions Person Information Name: SHAZIA CHOU Age: 34 Years Arrival Date: 02/17/2025 18:53:55 Discharge Diagnosis: Bronchitis; Cough; Dizziness; Vasovagal near syncope Primary Care Physician: Jennie Durand DO Provider Information Primary Provider: Bakari Chester DO Advanced Jalousie Installer:Ben Garber PA-C The exam and treatment you received in the Emergency Department were for an urgent problem and are not intended as complete care. It is important that you follow up with a doctor, nurse practitioner, or physician???s certified pathology assistant for ongoing care. If your symptoms [...] Instructions: With: Address: When: Jennie Durand [address], [address] [place] [address] Business (1) In 3 days 02/20/2025 In the event that this physician does not participate in your insurance network, please consult with your insurance company to find a nearby participating provider. Patient Education Materials: Near-Syncope; Acute Bronchitis, Adult A MESSAGE TO ALL PATIENTS REGARDING OPIOIDS PRESCRIPTION OPIOIDS: WHAT YOU NEED TO KNOW Prescription opioids can be used to help relieve qjdtwhjk-oo-cqerra pain and are often prescribed following a [...] guidance from the Food and Drug Administration (www.fda.gov/Drugs/ResourcesForYou). ??? Visit www.cdc.gov/drugoverdose to learn about the risks of opioids abuse and overdose. ??? If you believe you may be struggling with addiction, tell your health manager progressive care and ask for guidance or call [facility]???S National Helpline at 8-240-320-HELP. v Source: US Department of Health and Human Services/Center for Disease Control & Prevention [facility] Medications Given: Medication Dose Route Sodium Chloride 0.9% intravenous solution 1000.00 mL IV Left Antecubital [place] meclizine 25.00 mg Oral ketorolac 30.00 mg IV Push Right Antecubit [place] Medication Information: New Medications [id number], [address], [place] [id number], [phone] brompheniramine/dextromethorphan/PSE (Bromfed DM oral syrup) 10 Milliliter By [...] Mouth once a day (at bedtime). Comment: Patient Portal You may access all of your results and other medical record information on our secure patient portal. If you are not signed up for this yet, please contact [facility] at [phone] to get signed up today. SONIYA Award Nomination The SONIYA (Diseases Attacking the Immune SYstem) Award is an international recognition program that honors and celebrates the skillful, compassionate care nurses provide every day. Anyone who experiences or observes amazing care being provided by a nurse is encouraged to submit a nomination. To nominate your nurse, use your smart phone to scan the QR code below. You may receive a survey from Mary Ganvicente asking you to rate your care experience. Your feedback is important and will help us understand what we do well and how we can improve the quality of care we provide to you, your loved ones and our community. It???s an honor to serve you. Thank you for choosing [facility] Patient Education Materials: Near-Syncope Near-syncope is when you suddenly feel like you might pass out or faint, but you do not actually lose consciousness. This may also be referred to as presyncope. During an episode of near-syncope, you may: ??? Feel dizzy, weak, light-headed, or like [...] not dangerous. However, near-syncope may be a sign of a serious medical problem, so it is important to seek medical care. Follow these instructions at home: Medicines ??? Take kwmq-gpp-vxnjads and prescription medicines only as told by [...] provider. Document Revised: 01/09/2022 Document Reviewed: 01/09/2022 [email or web address] Patient Education ? 2023 [email or web address] Acute Bronchitis, Adult Acute bronchitis is sudden [...] cough may last longer. Allergies, asthma, and exposure to smoke may make the condition worse. What are the causes? This condition can be caused by germs and by substances that irritate the lungs, including: ??? Cold and flu viruses. The most common cause of this condition is the virus that causes the common cold. ??? Bacteria. This is less common. ??? Breathing in substances that irritate the lungs, including: ? Smoke from cigarettes and other forms of tobacco. ? Dust and pollen. ? Fumes from household cleaning products, gases, or burned fuel. ? Indoor or outdoor air pollution. What increases the risk? The following factors may make you more likely to develop this condition: ??? A weak body's defense system, also called the immune system. ??? A condition that affects your lungs and breathing, such as asthma. What are the signs or symptoms? Common symptoms of this condition include: ??? Coughing. This may bring up clear, yellow, or green mucus from your lungs (sputum). ??? Wheezing. ??? Runny or stuffy nose. ??? Having too much mucus in your lungs (chest congestion). ??? Shortness of breath. ??? Aches and pains, including sore throat or chest. How is this diagnosed? This condition is usually diagnosed based on: ??? Your symptoms and medical history. ??? A physical exam. You may also have other tests, including tests to rule out other conditions, such as pneumonia. These tests include: ??? A test of lung function. ??? Test of a mucus sample to look for the presence of bacteria. ??? Tests to check the oxygen level in your blood. ??? Blood tests. ??? Chest X-ray. How is this treated? Most cases of acute bronchitis clear up over time without treatment. Your health care provider may recommend: ??? Drinking more fluids to help thin your mucus so it is easier to cough up. ??? Taking inhaled medicine (inhaler) to improve air flow in and out of your lungs. ??? Using a vaporizer or a humidifier. These are machines that add water to the air to help you breathe better. ??? Taking a medicine that thins mucus and clears congestion (expectorant). ??? Taking a medicine that prevents or stops coughing (cough suppressant). It is not common to take an antibiotic medicine for this condition. Follow these instructions at home: ??? Take kchk-qqt-kesczhq and prescription medicines only as told by your health care provider. ??? Use an inhaler, vaporizer, or humidifier as told by your health care provider. ??? Take two teaspoons (10 mL) of honey at bedtime to lessen coughing at night. ??? Drink enough fluid to keep your urine pale yellow. ??? Do not use any products that contain nicotine or tobacco. These products include cigarettes, chewing tobacco, and vaping devices, such as e-cigarettes. If you need help quitting, ask your health care provider. ??? Get plenty of rest. ??? Return to your normal activities as told by your health care provider. Ask your health care provider what activities are safe for you. ??? Keep all follow-up visits. This is important. How is this prevented? To lower your risk of getting this condition again: ??? Wash your hands often with soap and water for at least 20 seconds. If soap and water are not available, use hand drawing tender. ??? Avoid contact with people who have cold symptoms. ??? Try not to touch your mouth, nose, or eyes with your hands. ??? Avoid breathing in smoke or chemical fumes. Breathing smoke or chemical fumes will make your condition worse. ??? Get the flu shot every year. Contact a health care provider if: ??? Your symptoms do not improve after 2 weeks. ??? You have trouble coughing up the mucus. ??? Your cough keeps you awake at night. ??? You have a fever. Get help right away if you: ??? Cough up blood. ??? Feel pain in your chest. ??? Have severe shortness of breath. ??? Faint or keep feeling like you are going to faint. ??? Have a severe headache. ??? Have a fever or chills that get worse. These symptoms may represent a serious problem that is an emergency. Do not wait to see if the symptoms will go away. Get medical help right away. Call your local emergency services (911 in the [place] Do not drive yourself to the hospital. Summary ??? Acute bronchitis is inflammation of the main airways (bronchi) that come off the windpipe (trachea) in the lungs. The swelling causes the airways to get smaller and make more mucus than normal. ??? Drinking more fluids can help thin your mucus so it is easier to cough up. ??? Take yiqt-wip-vvyhyfe and prescription medicines only as told by your health care provider. ??? Do not use any products that contain nicotine or tobacco. These products include cigarettes, chewing tobacco, and vaping devices, such as e-cigarettes. If you need help quitting, ask your health care provider. ??? Contact a health care provider if your symptoms do not improve after 2 weeks. This information is not intended to replace advice given to you by your health care provider. Make sure you discuss any questions you have with your health care provider. Document Revised: 12/11/2022 Document Reviewed: 01/01/2022 [email or web address] Patient Education ? 2023 [email or web address] JOSÉ ANTONIO Gray JESSICA L , have received the following patient education materials/instructions and have verbalized understanding: Patient Education Materials: Near-Syncope; Acute Bronchitis, Adult Follow-up Instructions: With: Address: When: Jennie [address], [address], [facility] [address] [place] [address] [facility] (1) In 3 days 02/20/2025 Patient Signature Date Clinician/Nurse Signature Date 02/17/2025 21:08:53 ED CLINICAL SUMMARY Observed: 02/17/2025 9:08 PM Status: F Source: [facility] ED Clinical Summary [place] [id number] ED Clinical Summary Person Information Name: SHAZIA CHOU [place] Age: 34 Years : 1990 Sex: Female Language: Panamanian PCP: Jennie Durand DO Marital Status: Phone: [phone] MRN: Visit Id: Visit Reason: Headache; Cough; [...] 02/17/2025 21:08:51 02/17/2025 21:08:51 02/17/2025 21:08:51 ADDRESS: [address] [place] [id number] PHYS DOC NOTES: MEDICAL INFORMATION: Prescriptions Given: New Medications [id number], [address], [place] [id number], [phone] brompheniramine/dextromethorphan/PSE (Bromfed DM oral syrup) 10 Milliliter By [...] Follow up: With: Address: When: Jennie Durand [facility] [place] , [address] [address] Business (1) In 3 days 02/20/2025 DIAGNOSIS: Bronchitis; Cough; Dizziness; Vasovagal near syncope XR CHEST SINGLE VIEW Observed: 7:30 PM Status: F Source: [facility] Exam Date/Time: 02/17/2025 19:33 EDT Reason for [...] Garber FINAL REPORT Dictated: 02/18/2025 8:08 am Vianney DO, Rahul J Signed (Electronic Signature): 02/18/2025 8:08 am Signed by: Rahul Faith DO Transcribed by: MARCO Technologist: DANISH UA WITH CULT RFLX Collected: 02/17/2025 7:24 PM Stat us: F Source: [facility] TYPE CODE TESTS RESULT OUT OF RANGE REFERENCE UNITS LAB [id number]([facility] ) UA Spec Desc Clean Catch Normal LAB [id number]([facility] ) UA Color Light-Yello w Normal Yellow Result Comment: Microscopic readings are only performed on those samples that meet specific criteria set forth by [facility]. LAB [id number]([facility] ) UA Clarity Clear Normal Clear LAB [id number]([facility] ) UA Spec Grav 1.006 Unknown 1.005-1.030 LAB [id number]([facility] ) UA pH 7.5 Unknown 5.0-9.0 LAB [id number]([facility] ) UA Protein Negative Normal Negative mg/dL LAB [id number]([facility] ) UA Glucose Negative Normal Negative mg/dL LAB [id number]([facility] ) UA Ketones Negative Normal Negative mg/dL LAB [id number]([facility] ) UA Bili Negative Normal Negative mg/dL LAB [id number]([facility] ) UA Blood Negative Normal Negative mg/dL LAB [id number]([facility] ) UA Nitrite Negative Normal Negative mg/dL LAB [id number]([facility] ) UA Urobilinogen Negative Normal Negative mg/dL LAB [id number]([facility] ) UA Leuk Est 25 Keven/uL Normal Negative CD:92281 03046 LAB [id number]([facility] ) UA WBC 0-5 Normal 0-5 CD:22690 76986 LAB [id number]([facility] ) UA RBC 0-3 Normal 0-3 CD:87995 22805 LAB [id number]([facility] ) UA Squam Epithelial 3-4 Unknown CD:98473 83162 LAB [id number]([facility] ) UA Bacteria Trace Normal Trace /HPF LAB [id number]([facility] ) UA Mucous Negative Normal Negative CD:37285 68132 LAB CD:[id number]([facility]) UA Transitional Epithelial 0-2 Normal 0-2 CD:45696 64819 Performed By: #### [id number] #### [facility] [address] [place] [address] CBC W/ AUTO DIFF Collected: 5 7:20 PM Status: F Source: [facility] TYPE CODE TESTS RESULT OUT OF RANGE REFERENCE UNITS LAB [id number](LOINC) WBC 8.4 Normal 4.0-11.0 E9/L LAB [id number](LOINC) RBC 4.2 Low 4.3-5.9 E12/L LAB [id number](LOINC) HGB 13.6 Normal 12.0-16.0 gm/dL LAB [id number](LOINC) Hct 40.2 Normal 34.0-46.0 % LAB [id number](LOINC) RDW 14.2 Normal 10.9-14.2 % LAB [id number](LOINC) MCH 32.6 Normal 27.0-34.0 pg LAB [id number](LOINC) MCHC 33.8 Normal 31.4-36.0 gm/dL LAB [id number](LOINC) MCV 96.4 Normal 80.0-100.0 fL LAB [id number](LOINC) MPV 9.3 Normal 6.4-10.8 fL LAB [id number](LOINC) Platelet 350.0 Normal 150.0-500.0 E9/ L LAB [id number](LOINC) Neutro Auto 77.3 High 36.0-75.0 % LAB [id number](LOINC) Lymph Auto 16.5 Normal 14.0-50.0 % LAB [id number](LOINC) [place] Auto 5.7 Normal 4.0-14.0 % LAB [id number](LOINC) Eos Auto 0.2 Normal 0.0-8.0 % LAB [id number](LOINC) Basophil Auto 0.3 Normal 0.0-2.0 % LAB [id number](LOINC) Neutro Absolute 6.5 Normal 2.0-7.5 E9/L LAB [id number](LOINC) Lymph Absolute 1.4 Normal 1.0-4.0 E9/L LAB [id number](LOINC) [place] Absolute 0.5 Normal 0.2-1.0 E9 /L LAB [id number](LOINC) Eos Absolute 0.0 Normal 0.0-0.5 E9/ L LAB [id number](LOINC) Basophil Absolute 0.0 Normal 0.0-0.2 E9/L Performed By: #### [id number] # ### [facility] [address] [place] [address] PT & PTT Collected: 5 7:20 PM Status: F Source: [facility] TYPE CODE TESTS RESULT OUT OF RANGE REFERENCE UNITS LAB [id number](LOINC ) PT 9.8 Normal 9.4-12.5 second(s) Result Comment: 15 days - 4 weeks 1 - [...] the same coagulation reagent and instrumentation as [facility]. Currently there are no coagulation studies available worldwide for children to 14 days, and no normal ranges. LAB [id number](LOINC ) PTT 30.7 Normal 25.1-36.5 second(s) Result Comment: Parameter 15 days - 4 weeks 1 - [...] the same coagulation reagent and instrumentation as [facility]. Currently there are no coagulation studies available worldwide for children to 14 days, and no normal ranges. Heparin therapeutic range (represented by Anti-Factor Xa activity of 0.2 - 0.4 U/mL) corresponds to PTT of 56.6 - 109.0 sec. LAB [id number](LOINC ) INR 0.88 Unknown Result Comment: INR results are specifically intended to assess patients stabilized on long-term Anticoagulation therapy suggested INR???s ???Less Intensive Anticoagulation??? 2.0 ??? 3.0 Conventional Range 3.0 ??? 4.5 Performed By: #### [id number] #### [facility] [address] [place] [address] HEP FUNC PANEL Collected: 7:20 PM Status: F Source: [facility] TYPE CODE TESTS RESULT OUT OF RANGE REFERENCE UNITS LAB [id number](LOINC) ALT 12 Normal 6-46 Int._Uni t /L LAB [id number](LOINC) AST 17 Normal 5-43 Int._Uni t /L LAB [id number](LOINC) Albumin Lvl 4.5 Normal 3.3-5.0 gm/d L LAB [id number](LOINC) Globulin 3.0 Normal 1.4-4.0 gm/dL LAB [id number](LOINC) A/G Ratio 1.5 Normal 1.1-2.2 LAB 33635301(LOINC) Alk Phos 55 Normal 21-98 Int._Un it /L LAB [id number](LOINC) Bili Direct 0.1 Normal 0.0-0.4 mg/d L LAB [id number](LOINC) Bili Indirect 0.3 Normal 0.1-0.9 mg /dL LAB [id number](LOINC) Bili Total 0.4 Normal 0.0-1.1 mg/dL LAB [id number](LOINC) Total Protein 7.5 Normal 6.0-7.8 gm /dL Performed By: #### [id number] # ### [facility] [address] [place] [address] TROPONIN 0 HR. Collected: 7:20 PM Status: F Source: [facility] TYPE CODE TESTS RESULT OUT OF RANGE REFERENCE UNITS LAB [id number](INC) Troponin HS <2.30 Low 10.10-27.10 pg/mL Result Comment: The 95% CI ( Confidence Interval) PPV (Positive Predictive Value) for myocardial infarction in females is 38 pg/mL, in males 51 pg/mL. The results should be used in conjunction with clinical conditions of myocardial infarction. (Access High Sensitivity Troponin I Instructions For Use, Carter Christopher, April 2018) Performed By: #### [id number] #### [facility] [address] [place] [address] BMP Collected: 02/17/2025 7:20 PM Status: F Source: [facility] TYPE CODE TESTS RESULT OUT OF RANGE REFERENCE UNITS LAB [id number](LOINC) Glucose Lvl 109 Normal 55-199 mg/d L LAB [id number](LOINC) BUN 11 Normal 5-21 mg/dL LAB [id number](LOINC) Creatinine 0.7 Normal 0.5-1.3 mg/dL LAB [id number](LOINC) BUN/Creat Ratio 16 Normal 10-20 No Units LAB [id number](LOINC) Calcium Lvl 10.4 Normal 8.9-11.1 mg/ dL LAB 78959335(LOINC) Sodium Lvl 136 Normal 135-145 mmol/ L LAB 64219010(LOINC) Potassium Lvl 3.8 Normal 3.5-5.3 mm ol/L LAB 17005225(LOINC) Chloride 105 Normal 101-111 mmol/L LAB 53440763(LOINC) CO2 21 Normal 21-31 mmol/L LAB 40504999(LOINC) AGAP 14 Normal 6-16 mEq/L Performed By: #### [id number] # ### [facility] [address] [place] [address] MAGNESIUM Collected: 7:20 PM Status: F Source: [facility] TYPE CODE TESTS RESULT OUT OF RANGE REFERENCE UNITS LAB 62288871(LOINC) Magnesium 1.8 Normal 1.3-2.4 mg/dL Performed By: #### [id number] # ### [facility] [address] [place] [address] EGFR Collected: 7:20 PM Status: F Source: [facility] TYPE CODE TESTS RESULT OUT OF RANGE REFERENCE UNITS LAB 64269294(LOINC) eGFR 115 Normal >=59 mL/min/1 .7 3 m2 Performed By: #### [id number] #### [facility] [address] [place] [address] PRE-ARRIVAL NOTE Observed: 02/17/2025 6:54 PM Status: F Source: [facility] Pre-Arrival Note Pre-Arrival Summary Name: EDUARDA Current Date: 02/17/2025 18:54:29 EDT Gender: Female Date of : Age: 34 Pre-Arrival Type: EMS ETA: 02/17/2025 19:10:00 EDT Primary Care Physician: Presenting Problem: dizziness Pre-Arrival User: Service RNLibby Referring Source: Location: [place] Completion Date/Time: 02/17/2025 18:40:00 [facility] Emergency Department Pre-Hospital Report Form Vital Signs: Pre-Hospital Report: Treatment in Route: Response to Treatment: Misc. Issues: ED NOTE-PHYSICIAN Observed: 02/17/2025 6:53 PM Status: F Source: [facility] ED Note-Physician Basic Information Time Seen: Ben [...] and symmetry. No ataxia with finger-nose or [id number]. Intact strength and sensation of bilateral upper and lower extremities. No Dysphasia. 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 Antibiotics were prescribed or dispensed because the [...] an inpatient admission. []The patient has acute bronchitis/bronchiolitisand antibiotics were prescribed or dispensed today. [DOES [...] Given patient's initial complaints labs, EKG, chest x- ray is obtained. Patient is given a dose [...] acute or chronic) Cough (R05.9: Cough, unspecified) Dizziness (R42: Dizziness and giddiness) Vasovagal near syncope (R55: Syncope and collapse) Orders: brompheniramine/dextromethorphan/PSE, 10 mL, Oral, QID for cold symptoms, 200 mL, Refill(s) 0, [facility]/pharmacy #[id number], 170, cm, 02/17/25 18:58:00 EDT, Height/Length Dosing, 90.4, kg, 02/17/25 18:58:00 EDT, Weight Dosing ketorolac, 30 mg = 1 mL, Injection, IV Push, Once, Stop date 02/17/25 19:13:00 EDT, STAT, Start date 02/17/25 19:13:00 EDT, 02/17/25 19:13:00 EDT meclizine, 25 mg = 2 tab(s), Tab, Oral, Once, Stop date 02/17/25 19:12:00 EDT, STAT, Start date 02/17/25 19:12:00 EDT, 02/17/25 19:12:00 EDT Sodium Chloride 0.9% intravenous solution, 1,000 mL, Soln-IV, IV, Once, Stop date 02/17/25 19:12:00 EDT, STAT, Start date 02/17/25 19:12:00 EDT, Infuse over 61, minute(s) Basic Metabolic Panel CBC w/ Auto Diff ED Cardiac Monitoring eGFR Hepatic Function Panel Magnesium Level Oxygen Saturation PT & PTT Saline Lock Insert Troponin 0 Hr. UA with Cult Rflx XR Chest Single View Medications Administered Given ketorolac 30 mg/mL Inj 1 mL, 30 mg, IV Push meclizine 12.5 mg Tab, 25 mg, Oral NS 1000 ml Bolus, 1000 mL, IV Disposition Plan Patient Discharge Condition Stable Discharge Disposition Home Discharge Prescription List Prescriptions Bromfed DM oral syrup, 10 mL, Oral, QID, PRN Follow-up With When Contact Information Jennie Durand In 3 days 02/20/2025 EDT [address] [place] [address]- [facility] (1) Additional Instructions: Patient Education Near-Syncope Acute Bronchitis, Adult Attestation Patient seen and evaluated by the physician certified pathology assistant. Attending physician was present in the emergency department and supervised care. This visit was performed by both the physician and an APC. I performed all aspects of the MDM as documented. This report was transcribed using voice recognition software. Every effort was made to ensure accuracy, however, inadvertently computerized floor helper mistakes may be present. Appropriate healthcare PPE was used in evaluating this patient. The healthcare provider was wearing gloves, and utilizing proper hand hygiene. All equipment was properly cleansed. I performed a substantive part of the MDM during the patient???s E/M visit. I personally made or approved the documented management plan and acknowledge its risk of complications. (Independent Interpretation) My (EKG/X-Ray/US/CT as applicable) interpretation as above. (Discussion) Management/test interpretation discussed with APC. Problem List/Past Medical History Ongoing Alcohol abuse, [...] Medications Inpatient No active inpatient medications Home Bromfed DM oral syrup, 10 mL, Oral, QID, PRN Cymbalta, 60 mg, Oral, BID ferrous sulfate 325 mg Tab gabapentin 600 mg Tab, 600 mg= 1 tab(s), Oral, TID, 2 refills lamotrigine, 100 mg, Oral, Daily Multi-Day Plus Minerals, Oral, Daily semaglutide, 2.4 mg, SubCutaneous, qWeek trazodone, 100 mg, Oral, Once a day (at bedtime) Tylenol, 325 mg, Oral, q4hr, PRN Vraylar, Oral, Daily Allergies Abilify (suicidal) BuSpar (palpitations) Coconut Oil (Swelling, Itching) Social History Alcohol - Medium Risk, 07/01/2021 Past. Beer. 3-5 times per week., 02/06/2025 Current, Liquor, 3-5 times per week, 01/29/2022 Substance Abuse - Denies Substance Abuse, 02/11/2019 Never, 02/17/2025 Never., 09/15/2024 Tobacco - High Risk, 02/07/2020 10 or more cigarettes (1/2 pack or more)/day in last 30 days Tobacco Use:., 02/17/2025 10 or more cigarettes (1/2 pack or more)/day in last 30 days Tobacco Use:. Never Smokeless Tobacco Use:. Cigarettes, Started age 11.0 Years. Household tobacco concerns: No. Yes, 02/16/2025 Family History Cardiac arrest: Mother and Grandparent. Diabetes mellitus type 1: Mother and Grandparent. Hypertension: Mother and Grandparent. Primary malignant neoplasm of bladder: Father. Primary malignant neoplasm of female genital organ: Mother. Lab Results WBC: 8.4 E9/L (02/17/25 19:20:00) RBC: 4.2 E12/L Low (02/17/25 19:20:00) HGB: 13.6 gm/dL (02/17/25 19:20:00) Hct: 40.2 % (02/17/25 19:20:00) MCV: 96.4 fL (02/17/25 19:20:00) MCH: 32.6 pg (02/17/25 19:20:00) MCHC: 33.8 gm/dL (02/17/25 19:20:00) RDW: 14.2 % (02/17/25 19:20:00) Platelet: 350 E9/L (02/17/25 19:20:00) MPV: 9.3 fL (02/17/25 19:20:00) Neutro Auto: 77.3 % High (02/17/25 19:20:00) Lymph Auto: 16.5 % (02/17/25 19:20:00) Fentress Auto: 5.7 % (02/17/25 19:20:00) Eos Auto: 0.2 % (02/17/25 19:20:00) Basophil Auto: 0.3 % (02/17/25 19:20:00) Neutro Absolute: 6.5 E9/L (02/17/25 19:20:00) Lymph Absolute: 1.4 E9/L (02/17/25 19:20:00) Fentress Absolute: 0.5 E9/L (02/17/25 19:20:00) Eos Absolute: 0 E9/L (02/17/25 19:20:00) Basophil Absolute: 0 E9/L (02/17/25 19:20:00) PT: 9.8 second(s) (02/17/25 19:20:00) INR: 0.88 (02/17/25:20:00) PTT: 30.7 second(s) (02/17/25:20:00) Glucose Lvl: 109 mg/dL (02/17/25:20:00) BUN: 11 mg/dL (02/17/25:20:00) Creatinine: 0.7 mg/dL (02/17/25:20:00) eGFR: 115 mL/min/1.73 m2 (02/17/25:20:00) BUN/Creat Ratio: 16 (02/17/25:20:00) Sodium Lvl: 136 mmol/L (02/17/25:20:00) Potassium Lvl: 3.8 mmol/L (02/17/25:20:00) Chloride: 105 mmol/L (02/17/25:20:00) CO2: 21 mmol/L (02/17/25:20:00) AGAP: 14 mEq/L (02/17/25:20:00) Calcium Lvl: 10.4 mg/dL (02/17/25:20:00) Alk Phos: 55 Int._Unit/L (02/17/25 19:20:00) ALT: 12 Int._Unit/L (02/17/25:20:00) AST: 17 Int._Unit/L (02/17/25:20:00) Total Protein: 7.5 gm/dL (02/17/25 19:20:00) Albumin Lvl: 4.5 gm/dL (02/17/25:20:00) Globulin: 3 gm/dL (02/17/25:20:00) A/G Ratio: 1.5 (02/17/25:20:00) Bili Total: 0.4 mg/dL (02/17/25 19:20:00) Bili Direct: 0.1 mg/dL (06/06/25 19:20:00) Bili Indirect: 0.3 mg/dL (02/17/25 19:20:00) Magnesium: 1.8 mg/dL (02/17/25 19:20:00) Troponin HS: <2.30 Low (02/17/25 19:20:00) UA Spec Desc: Clean Catch (02/17/25 19:24:00) UA Color: Light-Yellow (02/17/25 19:24:00) UA Clarity: Clear (02/17/25 19:24:00) UA Spec Grav: 1.006 (02/17/25 19:24:00) UA pH: 7.5 (02/17/25 19:24:00) UA Protein: Negat (02/17/25 19:24:00) UA Glucose: Negat (02/17/25 19:24:00) UA Ketones: Negat (02/17/25 19:24:00) UA Bili: Negat (02/17/25 19:24:00) UA Blood: Negat (02/17/25 19:24:00) UA Nitrite: Negat (02/17/25 19:24:00) UA Urobilinogen: Negat (02/17/25 19:24:00) UA Leuk Est: 25 Keven/uL (02/17/25 19:24:00) UA RBC: 0-3 (02/17/25 19:24:00) UA Squam Epithelial: 3-4 (02/17/25 19:24:00) UA WBC: 0-5 (02/17/25 19:24:00) UA Bacteria: Trace (02/17/25 19:24:00) UA Mucous: Negat (02/17/25 19:24:00) UA Transitional Epithelial: 0-2 (02/17/25 19:24:00) Diagnostic Results Single view chest x-ray interpreted by myself is negative for any acute cardiopulmonary process. EKG Results EC02/17/25: SINUS RHYTHM No STEMI Normal QTc NORMAL ECG Signed By: Bakari Chester DO 02/17/2025 19:14:37 Result Comment: Electronical ly Signed By: Shirlene GERONIMO, Ben Rangel\.br\Date and Time Signed: 02/17/25 20:20 EDT\.br\Electronically Co-Signed By: Bakari Chester DO\.br\Date and Time Co-Signed: 02/21/25 20:08 EDT XR CHEST 2 VIEWS Observed: 02/16/2025 2:01 PM Status: F Source: [facility] Exam Date/Time: 02/16/2025 14:18 EDT Reason for [...] Snyder MD Transcribed by: MARCO Technologist: [facility]/CLINIC NOTE Observed: 02/16/2025 12:38 PM Status: F Source: [facility] Heart and Vascular Office/Cl inic Note Chief Complaint New Patient- Palpitations History [...] beat which represents less than 0.01%. 7. TN interval 0.15 second, QRS 0.10 second, QT [...] 2 refills lamotrigine, 100 mg, Oral, Daily Multi-Day Plus Minerals, Oral, Daily semaglutide, 2.4 mg, SubCutaneous, qWeek trazodone, 100 mg, Oral, Once a day (at bedtime) Tylenol, 325 mg, Oral, q4hr, PRN Vraylar, Oral, Daily Allergies Abilify (suicidal) BuSpar (palpitations) Coconut Oil (Swelling, Itching) Social History Alcohol - Medium Risk, 07/01/2021 Past. Beer. 3-5 times per week., 02/06/2025 Current, Liquor, 3-5 times per week, 01/29/2022 Substance Abuse - Denies Substance Abuse, 02/11/2019 Never., 09/15/2024 Tobacco - High Risk, 02/07/2020 10 or more cigarettes (1/2 pack or more)/day in last 30 days Tobacco Use:. Never Smokeless Tobacco Use:. Cigarettes, Started age 11.0 Years. Household tobacco concerns: No. Yes, 02/16/2025 Family History Cardiac arrest: Mother and Grandparent. [...] Recorded influenza virus vaccine, inactivated 07/09/2020 Recorded [1] Echo Transthoracic Complete; Fernandez Daniels MD 02/09/2025 11:26 EDT [2] Holter Monitor; Fernandez Daniels MD 02/10/2025 08:17 EDT Result Comment: Electronical ly Signed By: Jak Peace MD W\.br\Date and Time Signed: 02/16/25 14:43 EDT\.br\Electronically Co-Signed By: Roxana Shipman.br\Date and Time Co-Signed: 02/16/25 14:37 EDT HOLTER MONITOR Observed: 02/10/2025 8:17 AM Status: F Source: [facility] Holter Monitor HOLTER MONITOR DATES OF STUDY: [...] beat which represents less than 0.01%. 7. TN interval 0.15 second, QRS 0.10 second, QT 0.40 second at heart rate of 64 beats per minute. READ BY: terrell Hernandez Dictated: 02/10/2025 [id number] Transcribed: 02/13/2025 Result Comment: Electronical ly Signed By: Fernandez Daniels MD\.br\Date and Time Signed: 02/13/25 18:05 EDT ECHO TRANSTHORACIC COMPLETE Observed: 10:49 AM Status: F Source: [facility] Echocardiology Procedure Exam Date/Time Accession # Ordering Echo Transthoracic 02/09/2025 11:26 EDT [id number] MOLLY WAGNER CNP Complete CPT code 90150 65197 Reason for Exam (Echo Transthoracic Complete) Palpitations R00.2 Report [facility] [address] [place] [address] Adult Echocardiogram Report Name: SHAZIA CHOU Study Date: 02/09/2025 10:52 AM BP: 135/99 mmHg Patient Location: [facility] Ambulatory(s) [facility] HR: 65 : 1990 Gender: Female Height: 67 in Age: 34 yrs Ethnicity: T Weight: 205 lb Reason For Study: Palpitations R00.2 BSA: 2.0 m2 History: HTN,Smoker-Yes Ordering Physician: BERNARD^MOLLY Referring Physician: MOLLY WAGNER Performed By: Candis Matthews, FRANCHESKAMS, RVT Interpretation Summary The left ventricle is [...] Fernandez Daniels MD Transcribed by: GINA Technologist: ANA CONSULTATION NOTE Observed: 01/27/2025 10:34 AM Status: F Source: [facility] Consultation Note Patient: SHAZIA CHOU Age: 34 years Sex: Female : 1990 Associated Diagnoses: None Author: Annita Kate PA-C Subjective Chief complaint 01/27/2025 10:12 [...] overall almost completely resolved until the 24-hour molina. Unfortunate, at that time the pain then returned. After the injection her pain was 0/10 [...] this process as she overall feels that this is 1 thing to give her the most [...] TID, # 90 tab(s), Refills(s) 2, Pharmacy: [facility]/pharmacy #[id number], 170, cm, 01/13/25 8:29:00 EDT, Height/Length Dosing, [...] All Problems Bipolar disorder / SNOMED CT 42483894 / Confirmed Pancreatic mass / SNOMED CT 6387596755 / Confirmed Smoker / SNOMED CT 557122402 / Confirmed Added secondary to documentation in Social History. Borderline personality disorder / SNOMED CT 47300580 / Confirmed History of bypass of stomach / SNOMED CT 5604363683 / Confirmed Vitamin D deficiency / SNOMED CT 79107155 / Confirmed Left breast mass / SNOMED CT 468390126 / Confirmed Hypertension / SNOMED CT 4822990330 / Confirmed Overweight (BMI 25.0-29.9) / SNOMED CT 5917718251 / Confirmed Muscle weakness-general / SNOMED CT 89426292 / Confirmed Chronic pain syndrome / SNOMED CT 4488605192 / Confirmed Iron deficiency anemia / SNOMED CT 222386535 / Confirmed noted in 09/16/2024 [facility] Records page 5. added per OP CDI policy. Alcohol abuse, uncomplicated / SNOMED CT 67277470 / Confirmed BMI 31.0-31.9,adult / SNOMED CT 226556370 / Confirmed Obesity (BMI 30-39.9) / SNOMED CT 420192781 / Confirmed Resolved: / SNOMED CT 212731510 Resolved: / SNOMED CT 980084079 Resolved: / SNOMED CT 418032431 Resolved: Alcohol abuse / SNOMED CT 36916538 Canceled: Anxiety and depression / SNOMED CT 89153587 Canceled: Plantar fasciitis of left foot / SNOMED CT 627258488 Canceled: Intracranial hypertension / SNOMED CT 539299100 Canceled: Smoker / SNOMED CT [id number] Added secondary to documentation in Social History. Canceled: Class 1 obesity with body mass index (BMI) of 32.0 to 32.9 in adult / SNOMED CT 5405792536 Canceled: Anxiety / SNOMED CT 95906592 Canceled: Depression / SNOMED CT 85767564 Canceled: Borderline personality disorder / SNOMED CT 11494256 Canceled: Class 1 obesity with body mass index (BMI) of 30.0 to 30.9 in adult / SNOMED CT 1927956283 Canceled: Former smoker / SNOMED CT 27623524 Canceled: Grief reaction / SNOMED CT 746024884 Canceled: Overweight with body mass index (BMI) of 29 to 29.9 in adult / SNOMED CT 3779703424 Canceled: Disorder of oral soft tissue / SNOMED CT 0679236303 Canceled: Intentional benzodiazepine overdose / SNOMED CT 2696339773 Canceled: Omental infarction / SNOMED CT 444436130 Canceled: Axillary lymphadenopathy / SNOMED CT 147634 Canceled: BMI 28.0-28.9,adult / SNOMED CT 2015762492 Canceled: Over weight / SNOMED CT 533786868 Canceled: Leukocytosis / SNOMED CT 060207181 Canceled: BMI 29.0-29.9,adult / SNOMED CT 6219997492 Canceled: Headache after spinal puncture / SNOMED CT 357488594 Canceled: Trapezius muscle spasm / SNOMED CT 7057768580 Canceled: Recovering alcoholic in remission / SNOMED CT 293489371 Canceled: Somatic dysfunction of head region / SNOMED CT 6411937493 Canceled: Somatic dysfunction of cervical region / SNOMED CT 8909974575 Canceled: Somatic dysfunction of thoracic region / SNOMED CT 6385431931 Canceled: BMI 30.0-30.9,adult / SNOMED CT 160010146 Objective Vital Signs 01/27/2025 10:12 EDT Peripheral Pulse Rate 86 bpm Respiratory Rate 14 br/min Systolic Blood Pressure 136 mmHg Diastolic Blood Pressure 91 mmHg HI Mean Arterial Pressure, Cuff 106 mmHg General: Alert and oriented, No acute distress. Eye: Normal conjunctiva. HENT: Normocephalic, Normal hearing. Cardiovascular: No edema. Musculoskeletal Normal range of motion. Normal strength. 5/5 lower extremity strength Pain with compression of the bilateral lumbar facet joints Increased lower back pain with bilateral facet loading Integumentary: Warm, Dry, Lolo. Neurologic: Alert, Oriented. Psychiatric: Cooperative, Appropriate mood & affect. 14 point review of systems was negative unless otherwise noted. Impression and Plan Patient is a 34-year-old female with a past medical history significant for lumbar spondylolisthesis, lumbar neuritis???improved from recent transforaminal epidural steroid injection, chronic [...] training to prevent future risk of falling. Result Comment: Electronical ly Signed By: Annita Kate PA-C\.br\Date and Time Signed: 01/27/25 10:38 EDT OPERATIVE REPORT Observed: 01/24/2025 9:58 AM Status: F Source: [facility] Operative Report Diagnosis: m47.816, lumbar spondyloarthropathy Procedure: Bilateral [...] patient agrees to continue currently prescribed/recommended therapies. Result Comment: Electronical ly Signed By: Babar Mayers DO\.br\Date and Time Signed: 01/24/25 09:58 EDT MAIN OR INTRAOPERATIVE RECORD Observed: 01/24/2025 9:51 AM Status: F Source: [facility] Main OR Intraoperative Recor d IntraOp Document Type FTPM Summary Primary Physician: Babar Mayers DO Finalized Date/Time: 01/24/25 09:58:05 Pt. Name: SHAZIA CHOU/Sex: 1990 Female Med Rec #: [id number] Physician: Babar Mayers DO Financial #: [id number] Pt. Type: P Room/Bed: / Admit/Disch: 01/24/25 08:25:39 - Institution: Case Times FTPM Entry 1 Patient Times In Room 01/24/25 09:48:00 Out Room 01/24/25 09:58:00 Procedure Times Start 01/24/25 09:51:00 Stop 01/24/25 09:57:00 Anesthesia Times Last Modified By: Nolvia Rodas RN 01/24/25 09:57:47 Case Attendance FTPM Entry 1 Entry 2 Entry 3 Case Attendee Babar Mayers DO, RN, Madison A Harvey RN, Corby Blue Role Performed Surgeon - Primary Development Manager - Primary Scrub - Primary Time In 01/24/25 09:48:00 01/24/25 09:48:00 01/24/25 09:48:00 Time Out 01/24/25 09:58:00 01/24/25 09:58:00 01/24/25 09:58:00 Procedure MEDIAL BRANCH MEDIAL BRANCH MEDIAL BRANCH BLOCK(Bilateral) BLOCK(Bilateral) BLOCK(Bilateral) Comments Last Modified By: Nolvia Rodas RN, RN, Madison A Pritchard RN, Madison A 01/24/25 09:57:49 01/24/25 09:57:49 01/24/25 09:57:49 Entry 4 Case Attendee Jennie Hurtado Role Performed Thermostat Maker Time In 01/24/25 09:48:00 Time Out 01/24/25 [...] and tissue Entry 1 Skin Integrity Intact, Lolo, Warm, & Skin Abnormality No Dry Outcomes [...] Under Knees Press Points Checked Yes By Nolvia Rodas RN Outcomes Met? Yes Last Modified By: Nolvia Rodas RN 01/24/25 09:52:07 Post-Care Text: The patient is free from signs and symptoms of injury related to positioning Transport To OR FTPM Pre-Care Text: Transports according to individual needs. Evaluates for signs and symptoms of skin and tissue injury as a result of transfer or transport Entry 1 Via Cart By Nolvia Rodas RN Safety Precautions Safety Strap, Side Outcomes Met? Yes Rails Up Last Modified By: Nolvia Rodas RN 01/24/25 09:52:10 Post-Care Text: The patient is free from signs and symptoms of injury related to transfer/transport Skin Prep FTPM Pre-Care Text: Performs skin preparations Entry 1 Procedure MEDIAL BRANCH Prep Area BLOCK INJECTION SITE BLOCK(Bilateral) Prep Agents Chloraprep/Dry Prior to Start Dry Time 01/24/25 09:48:00 Draping Stop Dry Time 01/24/25 09:51:00 Hair Removal Methods Not Indicated By Corby Rand RN Outcomes Met? Yes Last Modified By: Nolvia Rodas RN 01/24/25 09:52:21 Post-Care Text: The patient is free from signs and symptoms of infection Departure From OR FTPM Pre-Care Text: Transports according to individual needs. Evaluates for signs and symptoms of skin and tissue injury as a result of transfer or transport. Entry 1 Via Cart Safety Precautions Safety Strap, Side Rails Up PostOp Destination PACU Transported By Nolvia Rodas RN Patient Status Stable Report Given Edith Zabala RN To/Hand Off Communication Skin. Condition Dry, Intact Airway Maintenance Oxygen in Use? No Outcomes Met? Yes Last Modified By: Nolvia Rodas RN 01/24/25 09:53:36 Post-Care Text: The patient is free from signs and symptoms of injury related to transfer/transport Dressing/Packing FTPM Pre-Care Text: Administers care to wound sites Entry 1 Type Dressing Site and Details 4x4 and opsite applied to site Outcomes Met? Yes Last Modified By: Nolvia Rodas RN 01/24/25 09:53:51 Post-Care Text: The patient is free from signs and symptoms of infection Medication Administration FTPM Pre-Care Text: Verifies allergies, administers prescribed medications and solutions, administers prescribed antibiotic therapy and immunizing agents as ordered, evaluates response to medications Administers prescribed medications and solutions Entry 1 Route of Admin Block Expiration Date Yes Verified Ordered By Babar Mayers DO Transcribed/To Nolvia Rodas RN Field By Administered By Babar Mayers DO Outcomes Met? Yes Last Modified By: Nolvia Rodas RN 01/24/25 09:53:57 Post-Care Text: The patient received appropriate medication(s) safely administered during the perioperative period X-Rays & Images FTPM Pre-Care Text: Assess history of previous radiation exposure and implements protective measures Entry 1 X-Ray Type C-Arm Contrast Used? Yes Outcomes Met? Yes Last Modified By: Nolvia Rodas RN 01/24/25 09:54:06 Post-Care Text: The patient is free from signs and symptoms of radiation injury Case Comments <None> Finalized By: Nolvia Rodas RN Document Signatures Signed By: Nolvia Rodas RN 01/24/25 09:58 MAIN OR PREOPERATIVE RECORD Observed: 9:30 AM Status: F Source: [facility] Main OR Preoperative Record Holding Area Document Type FTPM Summary Primary Physician: Babar Mayers DO Finalized Date/Time: 01/24/25 08:43:59 Pt. Name: SHAZIA CHOU/Sex: 1990 Female Med Rec #: [id number] Physician: Babar Mayers DO Financial #: [id number] Pt. Type: P Room/Bed: / Admit/Disch: 01/24/25 [...] day? Patient states Yes Comment - Adult friend-Steffen postop adult Supervision supervision available Case Cancelled in No Holding Area see comments below for reason Last Modified By: Gabrielle Sultana RN 01/24/25 08:41:00 Finalized By: Gabrielle Sultana RN Document Signatures Signed By: Gabrielle Sultana RN 01/24/25 08:43 CONSULTATION NOTE Observed: 01/13/2025 8:37 AM Status: F Source: [facility] Consultation Note Patient: SHAZIA CHOU Age: 34 years Sex: Female : 1990 Associated Diagnoses: None Author: Annita Kate PA-C Subjective Chief complaint 01/13/2025 8:15 [...] back pain and she has been working full-time. 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 She states that it was miserable. At this time, she has back pain that she rates a 7/10 but it can get up to a 10/10 with walking, standing, being upright and active. She feels like the Lyrica did not help her so she went back to the gabapentin. She is using 600 mg usually only [...] BID, # 6 tab(s), Refills(s) 1, Pharmacy: [facility]/pharmacy #[id number], 162, cm, 08/08/22 9:11:00 EST, Height/Length Dosing, 83.1, kg, 08/08/22 9:11:00 EST, Weight Dosing pregabalin 50 mg Cap: 50 mg = 1 cap(s), Oral, BID, X 30 day(s), # 60 cap(s), Refills(s) 1, Pharmacy: [facility]/pharmacy #[id number], 170, cm, 11/15/24 13:59:00 [...] All Problems Bipolar disorder / SNOMED CT 52816149 / Confirmed Pancreatic mass / SNOMED CT 7938904494 / Confirmed Smoker / SNOMED CT 939887278 / Confirmed Added secondary to documentation in Social History. Borderline personality disorder / SNOMED CT 04759260 / Confirmed History of bypass of stomach / SNOMED CT 9279555213 / Confirmed Vitamin D deficiency / SNOMED CT 29601519 / Confirmed Left breast mass / SNOMED CT 416718762 / Confirmed Hypertension / SNOMED CT 4208774835 / Confirmed Overweight (BMI 25.0-29.9) / SNOMED CT 9487712491 / Confirmed Muscle weakness-general / SNOMED CT 16218899 / Confirmed Chronic pain syndrome / SNOMED CT 8802744797 / Confirmed Iron deficiency anemia / SNOMED CT 641950955 / Confirmed noted in 09/16/2024 [facility] Records page 5. added per OP CDI policy. Alcohol abuse, uncomplicated / SNOMED CT 34486805 / Confirmed BMI 31.0-31.9,adult / SNOMED CT 382744522 / Confirmed Obesity (BMI 30-39.9) / SNOMED CT 725888612 / Confirmed Resolved: / SNOMED CT 015125625 Resolved: / SNOMED CT 295890256 Resolved: / SNOMED CT 159508527 Resolved: Alcohol abuse / SNOMED CT 66033828 Canceled: Anxiety and depression / SNOMED CT 05501858 Canceled: Plantar fasciitis of left foot / SNOMED CT 759693336 Canceled: Intracranial hypertension / SNOMED CT 942897754 Canceled: Smoker / SNOMED CT [id number] Added secondary to documentation in Social History. Canceled: Class 1 obesity with body mass index (BMI) of 32.0 to 32.9 in adult / SNOMED CT 1980814163 Canceled: Anxiety / SNOMED CT 26489414 Canceled: Depression / SNOMED CT 40121740 Canceled: Borderline personality disorder / SNOMED CT 27022723 Canceled: Class 1 obesity with body mass index (BMI) of 30.0 to 30.9 in adult / SNOMED CT 6745495632 Canceled: Former smoker / SNOMED CT 56364295 Canceled: Grief reaction / SNOMED CT 207569236 Canceled: Overweight with body mass index (BMI) of 29 to 29.9 in adult / SNOMED CT 5805839389 Canceled: Disorder of oral soft tissue / SNOMED CT 4040451916 Canceled: Intentional benzodiazepine overdose / SNOMED CT 4047005538 Canceled: Omental infarction / SNOMED CT 257791694 Canceled: Axillary lymphadenopathy / SNOMED CT 400318 Canceled: BMI 28.0-28.9,adult / SNOMED CT 7459198633 Canceled: Over weight / SNOMED CT 032500381 Canceled: Leukocytosis / SNOMED CT 440714427 Canceled: BMI 29.0-29.9,adult / SNOMED CT 0246510185 Canceled: Headache after spinal puncture / SNOMED CT 153618220 Canceled: Trapezius muscle spasm / SNOMED CT 4841356510 Canceled: Recovering alcoholic in remission / SNOMED CT 142373381 Canceled: Somatic dysfunction of head region / SNOMED CT 1703780817 Canceled: Somatic dysfunction of cervical region / SNOMED CT 8681420381 Canceled: Somatic dysfunction of thoracic region / SNOMED CT 4307078985 Canceled: BMI 30.0-30.9,adult / SNOMED CT 326680300 Objective Vital Signs 01/13/2025 8:15 EDT Peripheral Pulse Rate 79 bpm Respiratory Rate 16 br/min Systolic Blood Pressure 133 mmHg Diastolic Blood Pressure 95 mmHg HI Mean Arterial Pressure, Cuff 108 mmHg General: Alert and oriented, No acute distress. Eye: Normal conjunctiva. HENT: Normocephalic, Normal hearing. Cardiovascular: No edema. Musculoskeletal Normal range of motion. Normal strength. 5/5 lower extremity strength other than bilateral ADF and EHL 4+ to 5 -/5 Pain with compression of the bilateral lumbar facet joint Increased lower back pain with bilateral facet loading Integumentary: Warm, Dry, Lolo. Neurologic: Alert, Oriented. Psychiatric: Cooperative, Appropriate mood & affect. 14 point review of systems was negative unless otherwise noted. Results Review * Final Report * Reason For Exam M43.16 POWERSCRIBE REPORT IMPRESSION: Anterolisthesis of L5 on S1 measuring [...] Facet degenerative changes. Mild to moderate bilateral foraminal narrowing without canal narrowing. Sacrum and iliac wings: The visualized sacrum and iliac wings are within unremarkable. The presacral soft tissues are grossly unremarkable. Ordering Provider: David Zazueta Signature Line FINAL REPORT Dictated: 11/12/2024 10:38 am Dominguez You MD Signed (Electronic Signature): 11/12/2024 10:38 am Signed by: Dominguez You MD Transcribed by: MARCO Technologist: MANDI RAD REPORT This document has an image Result type: MRI Spine Lumbar w/o Contrast Result date: November 11, 2024 20:11 EST Result status: Auth (Verified) Result title: MRI Spine Lumbar w/o Contrast Performed by: Dominguez You MD on November 12, 2024 10:38 EST Verified by: Dominguez You MD on November 12, 2024 10:38 EST Encounter info: [id number], Harpreet Casillas, Outpatient, 11/11/2024 - 11/11/2024 * Final Report * Reason For Exam M43.16 POWERSCRIBE REPORT IMPRESSION: Grade 2 L5 spondylolisthesis with L5 pars interarticularis defect. CLINICAL INFORMATION: M43.16 COMPARISON: NONE. COMMENT: 8 views. Lumbar vertebral bodies are normal in height. 1.1 cm anterolisthesis L5 on S1 visualized on flexion, extension, and neutral position. Diffuse disc space narrowing L5-S1. Pars interarticularis defect L5. No bone lesion. Ordering Provider: David Zazueta Signature Line FINAL REPORT Dictated: 12/14/2024 1:53 pm Julio Snyder MD Signed (Electronic Signature): 12/14/2024 1:53 pm Signed by: Julio Snyder MD Transcribed by: MARCO Technologist: CHAN CORADO REPORT This document has an image Result type: XR Spine Lumbar Complete Including Bendi Result date: December 14, 2024 11:38 EDT Result status: Auth (Verified) Result title: XR Spine Lumbar Complete Including Bending Performed by: Julio Snyder MD on December 14, 2024 13:53 EDT Verified by: Julio Snyder MD on December 14, 2024 13:53 EDT Encounter info: [id number], Harpreet Casillas, Outpatient, 12/14/2024 - 12/15/2024 Impression and Plan patient is a 34-year-old female with a past medical history significant for lumbar spondylolisthesis, lumbar neuritis???improved from recent transforaminal epidural steroid injection, chronic [...] treatments including physical therapy in the past, tcck-[id number]-grhluou anti-inflammatory medications and the recent injection helped [...] training to prevent future risk of falling. Result Comment: Electronical ly Signed By: Annita Kate PA-C\.br\Date and Time Signed: 01/13/25 08:44 EDT MR HEAD/BRAIN WO/W CON Observed: 025 2:04 PM Status: COMPLETED Source: [facility] [place] [address] MRI Report Signed Patient: Shazia Chou MR#: [id number] : 1990 Acct:[id number] Age/Sex: 33 / F ADM Date: 12/16/24 Loc: MR Room: Type: [facility] Attending Dr: Corby Larsen DO [...] Denny Escalante M.D.12/16/2024 2:50 PM Dictation Location: [place] [address] Transcribed By: [facility] 12/16/24 1450 Dictated By: Denny Escalante MD 12/16/24 1404 Signed By: <Electronically signed by Denny Escalante MD in OV> 12/16/24 1450 XR SPINE LUMBAR COMPLETE INCLUDING BENDI Observed: 12/14/2024 11:15 AM Status: F Source: [facility] Exam Date/Time: 12/14/2024 11:38 EDT Reason for [...] Snyder MD Transcribed by: MARCO Technologist: CHAN CYNDI ANTINUCLEAR ANTIBODIES Collected: 12/12/2024 9:41 AM Status: F Source: [facility] TYPE CODE TESTS RESULT OUT OF RANGE REFERENCE UNITS LAB [place] Antinuclear Abs, IFA Negative . Result Comment: Negative <1: 80 Borderline 1:80 Positive >1:80 ICAP nomenclature: AC-0 For more information about Hep-2 cell patterns use ANApatterns.org, the official website for the International Consensus on Antinuclear Antibody (CYNDI) Patterns (ICAP). Performed at: [facility] [employer] [id number] Operations Accountant: Santy Storey PhD, Phone: [phone] PERFORMED BY: [address] [address] PATHOLOGIST TECHNICAL SALES ADVISOR CARLOS KNAPP M.D. Performed By: #### CYNDI #### [facility] , COMPLEMENT TOTAL (CH50) Collected: 12/12/2024 9:41 AM Status: F Source: [facility] TYPE CODE TESTS RESULT OUT OF RANGE REFERENCE UNITS LAB CH50 Complement Total (CH50) >60 >41 Result Comment: Age Male Fe male 1 - 30 days Not Estab. Not [...] determine out of range values. Performed at: [facility] [id number] Operations Accountant: Santy Storey PhD, Phone: [phone] PERFORMED BY: [address] [address] PATHOLOGIST TECHNICAL SALES ADVISOR CARLOS KNAPP M.D. Performed By: #### ADNA, SJO GRENS, ZABALA, C3, HISAB, CCP, CHROMATIN, CENTROME, RA, CYNDI, [id number], JO1, B2 GLYPROT, ANTIR, CARDIO GMA, C4, CH50 #### [facility] , RHEUMATOID FACTOR Collected: 12/12/2024 9:41 AM Stat us: F Source: [facility] TYPE CODE TESTS RESULT OUT OF RANGE REFERENCE UNITS LAB RA Rheumatoid Factor <10.0 <14.0 [IU]/mL Result Comment: Performed at : [address] [id number] Operations Accountant: Santy Storey PhD, Phone: [phone] Performed By: #### ADNA, SJO CANDINS, ZABALA, C3, HISAB, CCP, CHROMATIN, CENTROME, RA, CYNDI, [id number], JO1, B2 GLYPROT, ANTIR, CARDIO GMA, C4, CH50 #### [facility] , CYNDI ANTINUCLEAR ANTIBODIES Collected: 12/12/2024 9:41 AM Status: F Source: [facility] TYPE CODE TESTS RESULT OUT OF RANGE REFERENCE UNITS LAB [place] Antinuclear Abs, IFA Negative . Result Comment: Negative <1: 80 Borderline 1:80 Positive >1:80 ICAP nomenclature: AC-0 For more information about Hep-2 cell patterns use ANApatterns.org, the official website for the International Consensus on Antinuclear Antibody (CYNDI) Patterns (ICAP). Performed at: [address] [id number] Operations Accountant: Santy Storey PhD, Phone: [phone] Performed By: #### ADNA, SJO CANDINS, ZABALA, C3, HISAB, CCP, CHROMATIN, CENTROME, RA, CYNDI, [id number], JO1, B2 GLYPROT, ANTIR, CARDIO GMA, C4, CH50 #### [facility] , ROBERT-1 ANTIBODY Collected: 12/12/2024 9:41 AM Status: F Source: [facility] TYPE CODE TESTS RESULT OUT OF RANGE REFERENCE UNITS LAB JO1 ROBERT-1 Antibody <0.2 0.0-0.9 Performed By: #### ADNA, SJO GRENS, ZABALA, C3, HISAB, CCP, CHROMATIN, CENTROME, RA, CYNDI, [id number], JO1, B2 GLYPROT, ANTIR, CARDIO GMA, C4, CH50 #### [facility] , SJOGRENS ANTI-SSA/SSB Collected: 2024 9:41 AM Status: F Source: [facility] TYPE CODE TESTS RESULT OUT OF RANGE REFERENCE UNITS LAB SSA SS-A/Ro Sjogrens Antibody <0.2 0.0-0.9 LAB SSB SS-B/La Sjogrens Antibody <0.2 0.0-0.9 Performed By: #### ADNA, SJO GRENS, ZABALA, C3, HISAB, CCP, CHROMATIN, CENTROME, RA, CYNDI, [id number], JO1, B2 GLYPROT, ANTIR, CARDIO GMA, C4, CH50 #### [facility] , ANTI-MANAGER NEWS Collected: 9:41 AM Status: F Source: [facility] TYPE CODE TESTS RESULT OUT OF RANGE REFERENCE UNITS LAB ANTIR Anti-MANAGER NEWS <0.2 0.0-0.9 Performed By: #### ADNA, SJO GRENS, ZABALA, C3, HISAB, CCP, CHROMATIN, CENTROME, RA, CYNDI, [id number], JO1, B2 GLYPROT, ANTIR, CARDIO GMA, C4, CH50 #### [facility] , ANTI-ZABALA ANTIBODIES Collected: 12/12/2024 9:41 AM Status: F Source: [facility] TYPE CODE TESTS RESULT OUT OF RANGE REFERENCE UNITS LAB ZABALA Anti-Zabala Antibodies <0.2 0.0-0.9 Performed By: #### ADNA, SJO GRENS, ZABAAL, C3, HISAB, CCP, CHROMATIN, CENTROME, RA, CYNDI, [id number], JO1, B2 GLYPROT, ANTIR, CARDIO GMA, C4, CH50 #### [facility] , SCLERODERMA 70 ANTIBODIES Collected: 12/12/2024 9:41 AM Status: F Source: [facility] TYPE CODE TESTS RESULT OUT OF RANGE REFERENCE UNITS LAB [id number] Scleroderma 70 Antibodies <0.2 0.0-0.9 Performed By: #### ADNA, SJO GRENS, ZABALA, C3, HISAB, CCP, CHROMATIN, CENTROME, RA, CYNDI, [id number], JO1, B2 GLYPROT, ANTIR, CARDIO GMA, C4, CH50 #### [facility] , HISTONE ANTIBODIES Collected: 12/12/2024 9:41 AM Sta tus: F Source: [facility] TYPE CODE TESTS RESULT OUT OF RANGE REFERENCE UNITS LAB HISAB Histone Antibodies 1.4 High 0.0-0.9 Result Comment: Negative <1 .0 Weak Positive 1.0 - 1.5 Moderate Positive 1.6 - 2.5 Strong Positive >2.5 Performed at: [facility] [id number] Operations Accountant: Anne Oro MD, Phone: [phone] Performed By: #### HANNAH, ALICJA FREEMAN, C3, HISAB, CCP, CHROMATIN, CENTROME, RA, CYNDI, [id number], JO1, B2 GLYPROT, ANTIR, CARDIO GMA, C4, CH50 #### [facility] , COMPLEMENT C3 Collected: 12/12/2024 9:41 AM Status: F Source: [facility] TYPE CODE TESTS RESULT OUT OF RANGE REFERENCE UNITS LAB C3 Complement C3 133 82-167 mg/dL Performed By: #### HANNAH, ALICJA FREEMAN, C3, HISAB, CCP, CHROMATIN, CENTROME, RA, CYNDI, [id number], JO1, B2 GLYPROT, ANTIR, CARDIO GMA, C4, CH50 #### [facility] , COMPLEMENT C4 Collected: 12/12/2024 9:41 AM Status: F Source: [facility] TYPE CODE TESTS RESULT OUT OF RANGE REFERENCE UNITS LAB C4 Complement C4 23 12-38 mg/dL Performed By: #### RUDOLPH YOUNG SMITH, C3, HISAB, CCP, CHROMATIN, CENTROME, RA, CYNDI, [id number], JO1, B2 GLYPROT, ANTIR, CARDIO GMA, C4, CH50 #### [facility] , ANTICARDIOLIPIN IGG/M/A, QN Collected: 12/12/2024 9:4 1 AM Status: F Source: [facility] TYPE CODE TESTS RESULT OUT OF RANGE REFERENCE UNITS LAB CARDIO IGG Anticardiolipin Ab, IgG,Qn <9 0-14 Result Comment: Negative: <1 5 Indeterminate: 15 - 20 Low-Med Positive: >20 - 80 High Positive: >80 LAB CARDIO IGM Anticardiolipin Ab, IgM,Qn <9 0-12 Result Comment: Negative: <1 3 Indeterminate: 13 - 20 Low-Med Positive: >20 - 80 High Positive: >80 LAB CARDIO IGA Anticardiolipin Ab, IgA,Qn <9 0-11 Result Comment: Negative: < 12 Indeterminate: 12 - 20 Low-Med Positive: >20 - 80 High Positive: >80 Performed By: #### HANNAH, ALICJA FREEMAN, C3, HISAB, CCP, CHROMATIN, CENTROME, RA, CYNDI, [id number], JO1, B2 GLYPROT, ANTIR, CARDIO GMA, C4, CH50 #### [facility] , ANTI-CENTROMERE B ANTIBODIES Collected: 12/12/2024 9:41 AM Status: F Source: [facility] TYPE CODE TESTS RESULT OUT OF RANGE REFERENCE UNITS LAB CENTROME Anti-Centromer e B Antibodies <0.2 0.0-0.9 Result Comment: Performed at : [facility] [employer] [facility] [employer] [id number] Operations Accountant: Santy Storey PhD, Phone: [phone] Performed By: #### RUDOLPH YOUNG SMITH, C3, HISAB, CCP, CHROMATIN, CENTROME, RA, CYNDI, [id number], JO1, B2 GLYPROT, ANTIR, CARDIO GMA, C4, CH50 #### [facility] , CYCLIC CITRULLIATED PEP AB Collected: 12/12/2024 9:41 AM Status: F Source: [facility] TYPE CODE TESTS RESULT OUT OF RANGE REFERENCE UNITS LAB CCP Cyclic Citrulliated Pep Ab 7 0-19 Result Comment: Negative <20 Weak positive 20 - 39 Moderate positive 40 - 59 Strong positive >59 Performed at: [facility] [place] [id number] Operations Accountant: Santy Storey PhD, Phone: [phone] Performed By: #### HANNAH, ALICJA FREEMAN, C3, HISAB, CCP, CHROMATIN, CENTROME, RA, CYNDI, [id number], JO1, B2 GLYPROT, ANTIR, CARDIO GMA, C4, CH50 #### [facility] , BETA 2 GLYCOPROTEIN I AB IGG/M Collected: 12/12/2024 9:41 AM Status: F Source: [facility] TYPE CODE TESTS RESULT OUT OF RANGE REFERENCE UNITS LAB [id number] Beta 2 Glycoprotein I Ab, IgG <9 0-20 Result Comment: Result Units : GPI IgG units The reference interval reflects a 3SD or 99th percentile interval, which is thought to represent a potentially clinically significant result in accordance with the International Consensus Statement on the classification criteria for definitive antiphospholipid syndrome (APS). J Thromb Haem 2006;4:295-306. LAB [id number] Beta 2 Glycoprotein I Ab, IgM <9 0-32 Result Comment: Result Units : GPI IgM units The reference interval reflects a 3SD or 99th percentile interval, which is thought to represent a potentially clinically significant result in accordance with the International Consensus Statement on the classification criteria for definitive antiphospholipid syndrome (APS). J Thromb Haem 2006;4:295-306. Performed at: [place] [address] Operations Accountant: Santy Storey PhD, Phone: [phone] Performed By: #### HANNAH, ALICJA FREEMAN, C3, HISAB, CCP, CHROMATIN, CENTROME, RA, CYNDI, [id number], JO1, B2 GLYPROT, ANTIR, CARDIO GMA, C4, CH50 #### [facility] , ANTI-DSDNA(DBL)AB Collected: 9:41 AM Status: F Source: [facility] TYPE CODE TESTS RESULT OUT OF RANGE REFERENCE UNITS LAB ADNA Anti-dsDNA( DBL)Ab 1 0-9 [IU]/mL Result Comment: Negative <5 Equivocal 5 - 9 Positive >9 Performed By: #### JULIA YOUNGO SALVADOR ZABALA, C3, HISAB, CCP, CHROMATIN, CENTROME, RA, CYNDI, [id number], JO1, B2 GLYPROT, ANTIR, CARDIO GMA, C4, CH50 #### [facility] , CHROMATIN ANTIBODY Collected: 12/12/2024 9:41 AM Sta tus: F Source: [facility] TYPE CODE TESTS RESULT OUT OF RANGE REFERENCE UNITS LAB CHROMATIN Chromatin Antibody <0.2 0.0-0.9 Result Comment: PERFORMED BY : [place] [address] PATHOLOGIST TECHNICAL SALES ADVISOR CARLOS KNAPP M.D. Performed By: #### ADNA, SJO GRENS, ZABALA, C3, HISAB, CCP, CHROMATIN, CENTROME, RA, CYNDI, [id number], JO1, B2 GLYPROT, ANTIR, CARDIO GMA, C4, CH50 #### [facility] , CREATINE KINASE Collected: 12/12/2024 9:41 AM Status : F Source: [facility] TYPE CODE TESTS RESULT OUT OF RANGE REFERENCE UNITS LAB CK Creatine Kinase 122 Normal 30-223 U/L Result Comment: PERFORMED BY : [place] [address] PATHOLOGIST TECHNICAL SALES ADVISOR CARLOS KNAPP M.D. Performed By: #### TSH3, ESR , ADDONUAPLUS, PP, CRP, T4F, CMP, CK, CBC #### [facility] [address] [place] [address] #### ALDOLASE, UPE RAND, MYOG, SPE, SYMONE,URINE, RPR W RFX, SYMONE SERUM #### [facility] , COMPREHENSIVE METABOLIC PANEL Collected: 12/12/2024 9 :41 AM Status: F Source: [facility] TYPE CODE TESTS RESULT OUT OF RANGE REFERENCE UNITS LAB GLU Glucose 77 Normal 70-100 mg/dL Result Comment: Random Gluco se Reference Range is dependent on time and content of last meal. Glucose of more than 200 mg/dL in a nonstressed, ambulatory subject supports the diagnosis of Diabetes Mellitus. ADA recommended reference range LAB BUN Blood Urea Nitrogen 12 Normal 7-25 mg/d L LAB CREATT Creatinine 0.66 Normal 0.60-1.20 mg/dL LAB GFReNR Estimated GFR >60.0 mL/Min LAB NA Sodium 141 Normal 136-145 mmol/L LAB K Potassium 4.3 Normal 3.5-5.1 mmol/L LAB CL Chloride 103 Normal 98-107 mmol/L LAB CO2 Carbon Dioxide 28.8 Normal 21.0-31.0 mmol/L LAB GAP Anion Gap 13.5 Normal 6.0-15.0 meq/L LAB CA Calcium 10.3 Normal 8.6-10.3 mg/dL LAB TP Total Protein 7.5 Normal 6.4-8.9 g/dL LAB ALB Albumin Level 4.7 Normal 3.5-5.7 g/dL LAB GLOB Globulin 2.8 g/dL LAB AGRATIO Albumin/Globulin Ratio 1.7 LAB BILIT Bilirubin,Total 0.3 Normal 0.3-1.0 mg/dL LAB AST Aspartate Amino Transferase 23 Normal 13-39 U/L LAB ALT Alanine Aminotransferase 20 Normal 7-52 U/L LAB ALP Alkaline Phosphatase 69 Normal 34-104 U/L Performed By: #### TSH3, ESR , ADDONUAPLUS, PP, CRP, T4F, CMP, CK, CBC #### [address] #### ALDOLASE, UPE RAND, MYOG, SPE, SYMONE,URINE, RPR W RFX, SYMONE SERUM #### [facility] , C-REACTIVE PROTEIN Collected: 9:41 AM Status: F Source: [facility] TYPE CODE TESTS RESULT OUT OF RANGE REFERENCE UNITS LAB CRP C-Reactive Protein <0.5 Normal 0.0-0.5 mg/dL Performed By: #### TSH3, ESR , ADDONUAPLUS, PP, CRP, T4F, CMP, CK, CBC #### [place] [address] [place] #### ALDOLASE, UPE RAND, MYOG, SPE, SYMONE,URINE, RPR W RFX, SYMONE SERUM #### [facility] , FREE T4 (FREE THYROXINE) Collected: 9:41 AM Status: F Source: [facility] TYPE CODE TESTS RESULT OUT OF RANGE REFERENCE UNITS LAB T4F Free T4 (Free Thyroxine) 0.84 Normal 0.61-1.12 ng/dL Performed By: #### TSH3, ESR , ADDONUAPLUS, PP, CRP, T4F, CMP, CK, CBC #### [facility] [address] #### ALDOLASE, UPE RAND, MYOG, SPE, SYMONE,URINE, RPR W RFX, SYMONE SERUM #### [facility] , THYROID STIMULATING HORMONE Collected: 12/12/2024 9:4 1 AM Status: F Source: [facility] TYPE CODE TESTS RESULT OUT OF RANGE REFERENCE UNITS LAB TSH3 Thyroid Stimulating Hormone 0.91 Normal 0.45-5.33 u[iU]/mL Result Comment: PERFORMED BY : [place] [address] PATHOLOGIST TECHNICAL SALES ADVISOR CARLOS KNAPP M.D. Performed By: #### TSH3, ESR , ADDONUAPLUS, PP, CRP, T4F, CMP, CK, CBC #### [facility] [address] [place] [address] #### ALDOLASE, UPE RAND, MYOG, SPE, SYMONE,URINE, RPR W RFX, SYMONE SERUM #### [facility] , COAGULATION PROFILE Collected: 12/12/2024 9:[address] atus: F Source: [facility] TYPE CODE TESTS RESULT OUT OF RANGE REFERENCE UNITS LAB R PT Prothrombin Time 9.6 Normal 9.0-12.9 s Result Comment: A hematocrit value greater than 55% may lead to inaccurate results in coagulation testing. Patients having hematocrit values >55% require a special collection tube for coagulation studies. Please contact the laboratory at [phone] for redraw instructions. LAB INR INR 0.8 Result Comment: INR Therapeu tic Range A) Pre- and Peroperative OAT started two weeks before surgery. NOT HIP SURGERY: 1.5 - 2.5 HIP SURGERY: 2 - 3 B) Primary and secondary prevention of venous THROMBOSIS: 2 - 3 C) Active venous thrombosis, pulmonary embolism and prevention of recurrent venous thrombosis: 2 - 3 D) Prevention of arterial thromboembolism including patients with mechanical heart valves: 3 - 4.5 LAB PTT Partial Thromboplastin Time 29.5 Normal 25.1-36.5 s Result Comment: A hematocrit value greater than 55% may lead to inaccurate results in coagulation testing. Patients having hematocrit values >55% require a special collection tube for coagulation studies. Please contact the laboratory at [phone] for redraw instructions. PERFORMED BY: [place] [id number] PATHOLOGIST TECHNICAL SALES ADVISOR CARLOS KNAPP M.D. Performed By: #### TSH3, ESR , ADDONUAPLUS, PP, CRP, T4F, CMP, CK, CBC #### [address] #### ALDOLASE, UPE RAND, MYOG, SPE, SYMONE,URINE, RPR W RFX, SYMONE SERUM #### [facility] , COMPLETE BLOOD COUNT AUTO DIFF Collected: 12/12/2024 9:41 AM Status: F Source: [facility] TYPE CODE TESTS RESULT OUT OF RANGE REFERENCE UNITS LAB WBC White Blood Count 9.8 Normal 3.8-11.6 10*3/uL LAB UNWBC Uncorrected WBC 9.8 Normal 3.8-11.6 10*3/uL LAB RBC Red Blood Count 4.11 Normal 3.60-5.00 10*6/u L LAB HGB Hemoglobin 13.6 Normal 11.8-15.4 g/dL LAB HCT Hematocrit 40.4 Normal 34.0-46.4 % LAB MCV Mean Corpuscular Volume 98.2 Normal 80-100 fL LAB MCH Mean Corpuscular Hemoglobin 33.1 Normal 24.7-34.3 pg LAB MCHC Mean Corpuscular HGB Conc 33.7 Normal 32.0-35.0 g/dL LAB RDW Red Cell Distribution Width 15.3 Normal 11.9-15.3 % LAB PLT Platelet Count 297 Normal 150-450 10*3/uL LAB MPV Mean Platelet Volume 9.6 Normal 6.3-10.7 fL LAB NE% Neutrophils % (Auto) 72.3 . % LAB LY% Lymphocytes % (Auto) 18.1 . % LAB MO% Monocytes % (Auto) 6.8 . % LAB EO% Eosinophils % (Auto) 2.0 . % LAB BA% Basophils % (Auto) 0.8 . % LAB NRBC% NRBC% 0.0 Normal 0-0.5 /100{WBC} LAB NE# Neutrophils # (Auto) 7.1 Normal 1.8-7.7 10*3/uL LAB LY# Lymphocytes # (Auto) 1.8 Normal 1.00-4.8 10*3/uL LAB MO# Monocytes # (Auto) 0.7 Normal 0.0-0.8 10*3/uL LAB EO# Eosinophils # (Auto) 0.2 Normal 0.0-0.45 10*3/uL LAB BA# Basophils # (Auto) 0.1 Normal 0.0-0.2 10*3/uL Performed By: #### TSH3, ESR , ADDONUAPLUS, PP, CRP, T4F, CMP, CK, CBC #### [address] #### ALDOLASE, UPE RAND, MYOG, SPE, SYMONE,URINE, RPR W RFX, SYMONE SERUM #### [facility] , ERYTHROCYTE SEDIMENTATION RATE Collected: 12/12/2024 9:41 AM Status: F Source: [facility] TYPE CODE TESTS RESULT OUT OF RANGE REFERENCE UNITS LAB ESR Erythrocyte Sedimentation Rate 19 Normal 0-19 Result Comment: PERFORMED BY : [place] [address] PATHOLOGIST [employer]OR CARLOS KNAPP M.D. Performed By: #### TSH3, ESR , ADDONUAPLUS, PP, CRP, T4F, CMP, CK, CBC #### [address] #### ALDOLASE, UPE RAND, MYOG, SPE, SYMONE,URINE, RPR W RFX, SYMONE SERUM #### [facility] , DIPSTICK AND MICROSCOPIC Collected: 9:41 AM Status: F Source: [facility] Order Comment: Name Collecti on Type:: Clean-Voided Midstream TYPE CODE TESTS RESULT OUT OF RANGE REFERENCE UNITS LAB UCOL Color,Urine Light-Yellow Yellow LAB UAPP Appearance,Uri ne Clear Clear LAB USG Specificy [place],Urine 1.005 Normal 1.001-1.030 LAB UPH pH,Urine 6.5 Normal 5.0-9.0 LAB ULE Leukocyte Esterase,Urine Negative Negative LAB UNIT Nitrite,Urine Negative Negative LAB UPRO Protein,Urine Negative Negative LAB UGL Glucose,Urine (UA) Normal Normal LAB UKET Ketones,Urine Negative Negative LAB UURO Urobilinogen,U rine Normal Normal LAB UBIL Bilirubin,Urin e Negative Negative LAB UBLD Occult Blood,Urine Negative Negative LAB URBC RBC,Urine 1-2 0-4 [HPF] LAB UWBC WBC,Urine 1-2 0-4 [HPF] LAB USQEPI Squamous Epithelial Cell,Urine 1-2 0-2 [HPF] LAB UBACT Bacteria,Urine None Seen None Seen LAB UHYALC Hyaline Casts,Urine None 0-8 LAB MUCUS Mucus,Urine Rare Result Comment: PERFORMED BY : [place] [address] PATHOLOGIST TECHNICAL SALES ADVISOR CARLOS KNAPP M.D. Performed By: #### TSH3, ESR , ADDONUAPLUS, PP, CRP, T4F, CMP, CK, CBC #### [address] #### ALDOLASE, UPE RAND, MYOG, SPE, SYMONE,URINE, RPR W RFX, SYMONE SERUM #### [facility] , ALDOLASE Collected: 5 9:41 AM Status: F Source: [facility] TYPE CODE TESTS RESULT OUT OF RANGE REFERENCE UNITS LAB ALDOLASE Aldolase 4.2 3.3-10.3 U/L Result Comment: Performed a t: CB - [facility] [address] [id number] Operations Accountant: Sanyt Storey PhD, Phone: [phone] PERFORMED BY: [place] [address] PATHOLOGIST TECHNICAL SALES ADVISOR CARLOS KNAPP M.D. Performed By: #### TSH3, ESR , ADDONUAPLUS, PP, CRP, T4F, CMP, CK, CBC #### [address] #### ALDOLASE, UPE RAND, MYOG, SPE, SYMONE,URINE, RPR W RFX, SYMONE SERUM #### [facility] , MYOGLOBIN Collected: 9:41 AM Status: F Source: [facility] TYPE CODE TESTS RESULT OUT OF RANGE REFERENCE UNITS LAB MYOG Myoglobin <21 Low 25-58 ng/mL Result Comment: Performed at : [address] [id number] Operations Accountant: Santy Storey PhD, Phone: [phone] Performed By: #### TSH3, ESR , ADDONUAPLUS, PP, CRP, T4F, CMP, CK, CBC #### [facility] [address] [place] [address] #### ALDOLASE, UPE RAND, MYOG, SPE, SYMONE,URINE, RPR W RFX, SYMONE SERUM #### [facility] , IMMUNOFIXATION,SERUM Collected: 9:41 AM Status: F Source: [facility] TYPE CODE TESTS RESULT OUT OF RANGE REFERENCE UNITS LAB SYMONE SERUM. Immunofixation, Serum Comment . Result Comment: No monoclona lity detected. LAB IGG Immunoglobulin G 497 457-9264 mg/dL LAB IGA Immunoglobulin A, Serum 262 87-352 mg/dL LAB IGM Immunoglobulin M, Serum 110 26-217 mg/dL Result Comment: Performed at : [address] [id number] Operations Accountant: Santy Storey PhD, Phone: [phone] Performed By: #### TSH3, ESR , ADDONUAPLUS, PP, CRP, T4F, CMP, CK, CBC #### [facility] [address] [place] [address] [place] #### ALDOLASE, UPE RAND, MYOG, SPE, SYMONE,URINE, RPR W RFX, SYMONE SERUM #### [facility] , PROTEIN ELECTROPHORESIS, SERUM Collecte d: 12/12/2024 9:41 AM Status: F Source: [facility] TYPE CODE TESTS RESULT OUT OF RANGE REFERENCE UNITS LAB SPETP Total Protein, Serum 7.5 6.0-8.5 g/dL LAB SPEALB Albumin, Serum 4.1 2.9-4.4 g/dL LAB SPEA1G Dbmvt-1-Azzo ulin 0.3 0.0-0.4 g/dL LAB SPEA2G Mqxpk-0-Wpka ulin 0.9 0.4-1.0 g/dL LAB SPEBG Beta Globulin 1.2 0.7-1.3 g/dL LAB SPEGG Gamma Globulin 1.0 0.4-1.8 g/dL LAB SPEMS M-Vincent Not Observed Not Observed LAB SPEGLOB Globulin, Total 3.4 2.2-3.9 g/dL LAB SPEAG A/G Ratio 1.2 0.7-1.7 LAB SPENOTE SPE-Note Comment . Result Comment: Protein elec trophoresis scan will follow via computer, mail, or dry primer powder blender delivery. Performed at: [address] [id number] Operations Accountant: Santy Storey PhD, Phone: [phone] Performed By: #### TSH3, ESR , ADDONUAPLUS, PP, CRP, T4F, CMP, CK, CBC #### [address] #### ALDOLASE, UPE RAND, MYOG, SPE, SYMONE,URINE, RPR W RFX, SYMONE SERUM #### [facility] , RPR W/RFX TO QUANT TP ABS Collected: 9:41 AM Status: F Source: [facility] TYPE CODE TESTS RESULT OUT OF RANGE REFERENCE UNITS LAB RPRRESULT RPR, Rfx Quant RPR Non Reactive Non Reactive Result Comment: Performed at : [address] [id number] Operations Accountant: Santy Storey PhD, Phone: [phone] PERFORMED BY: [place] [address] PATHOLOGIST TECHNICAL SALES ADVISOR CARLOS KNAPP M.D. Performed By: #### TSH3, ESR , ADDONUAPLUS, PP, CRP, T4F, CMP, CK, CBC #### [facility] [address] [place] [address] #### ALDOLASE, UPE RAND, MYOG, SPE, SYMONE,URINE, RPR W RFX, SYMONE SERUM #### [facility] , IMMUNOFIXATION, (SYMONE), URINE Collected: 12/12/2024 9:41 AM Status: F Source: [facility] TYPE CODE TESTS RESULT OUT OF RANGE REFERENCE UNITS LAB SYMONE,URINE Immunofixati on, (SYMONE), Urine Comment . Result Comment: No monoclona lity detected. Performed at: [facility] [address] [id number] Operations Accountant: Santy Storey PhD, Phone: [phone] Performed By: #### TSH3, ESR , ADDONUAPLUS, PP, CRP, T4F, CMP, CK, CBC #### [address] #### ALDOLASE, UPE RAND, MYOG, SPE, SYMONE,URINE, RPR W RFX, SYMONE SERUM #### [facility] , PROTEIN ELECTRO, RANDOM URINE Collected : 12/12/2024 9:41 AM Status: F Source: [facility] TYPE CODE TESTS RESULT OUT OF RANGE REFERENCE UNITS LAB UPERTP Protein, Total, Urine <4.0 Not Estab. mg/dL Result Comment: Verified b y repeat analysis LAB UPERALB Albumin, Urine 21.6 . % LAB UPEA1G Alpha-1-Litzy bulin, Urine 7.6 . % LAB UPEA2G Alpha-2-Litzy bulin, Urine 12.8 . % LAB UPERBG Beta Globulin, Urine 40.6 . % LAB UPERGG Gamma Globulin, Urine 17.5 . % LAB UPERMSPK M-Vincent % Not Observed Not Observed LAB UPERPLSNOTE Please Note: Comment . Result Comment: Protein elec trophoresis scan will follow via computer, mail, or dry primer powder blender delivery. PERFORMED BY: [place] [address] PATHOLOGIST TECHNICAL SALES ADVISOR CARLOS KNAPP M.D. Performed By: #### TSH3, ESR , ADDONUAPLUS, PP, CRP, T4F, CMP, CK, CBC #### [address] #### ALDOLASE, UPE RAND, MYOG, SPE, SYMONE,URINE, RPR W RFX, SYMONE SERUM #### [facility] , LUPUS ANTICOAGULANT COMP Collected: 12/12/2024 9:41 A M Status: F Source: [facility] TYPE CODE TESTS RESULT OUT OF RANGE REFERENCE UNITS LAB DPT Dilute Prothromb in Time (dPt) 28.5 0.0-47.6 LAB DPT CONFIRM dPT Confirm Ratio 1.09 0.00-1.34 LAB LUPTT Thrombin Time 17.0 0.0-23.0 LAB PROF-PTTLA PTT-LA 26.0 0.0-43.5 LAB PROF-DRVVT DRVVT Lupus 29.9 0.0-47.0 LAB INTERPRET Interpretation Comment: . Result Comment: No lupus ant icoagulant was detected. Performed at: [facility] [address] [id number] Operations Accountant: Anne Oro MD, Phone: [phone] PERFORMED BY: [place] [address] PATHOLOGIST TECHNICAL SALES ADVISOR CARLOS KNAPP M.D. Performed By: #### LUPANTCOA #### [facility] , US ABDOMEN, LIMITED Observed: 11/29/2024 6:58 AM Status: F Source: [facility] Exam Date/Time: 11/29/2024 07:20 EDT Reason for [...] Snyder MD Transcribed by: MARCO Technologist: KELLY OPERATIVE REPORT Observed: 11/28/2024 10:22 AM Status: F Source: [facility] Operative Report Diagnosis: m54.16, lumbar radiculopathy Procedure: Left [...] agrees to comply to currently prescribed/recommended therapies. Result Comment: Electronical ly Signed By: Babar Mayers DO.benito\Date and Time Signed: 11/28/24 10:22 EDT MAIN OR INTRAOPERATIVE RECORD Observed: 11/28/2024 10:19 AM Status: F Source: [facility] Main OR Intraoperative Recor d IntraOp Document Type FTPM Summary Primary Physician: Babar Mayers DO Finalized Date/Time: 11/28/24 10:21:25 Pt. Name: SHAZIA CHOU Valentina/Sex: 1990 Female Med Rec #: [id number] Physician: Babar Mayers DO Financial #: [id number] Pt. Type: P Room/Bed: / Admit/Disch: 11/28/24 08:59:53 - Institution: Case Times FTPM Entry 1 Patient Times In Room 11/28/24 10:16:00 Out Room 11/28/24 10:22:00 Procedure Times Start 11/28/24 10:19:00 Stop 11/28/24 10:21:00 Anesthesia Times Last Modified By: Markos LARA, Lulu Bellamy 11/28/24 10:21:12 Case Attendance FTPM Entry 1 Entry 2 Entry 3 Case Attendee Babar Mayers DO, RN, Lulu Rodas RN, Nolvia Lehman Role Performed Surgeon - Primary Development Manager - Primary Scrub - Primary Time In 11/28/24 10:16:00 11/28/24 10:16:00 11/28/24 10:16:00 Time Out 11/28/24 10:22:00 11/28/24 10:22:00 11/28/24 10:22:00 Procedure TRANSFORAMINAL EPIDURAL TRANSFORAMINAL EPIDURAL TRANSFORAMINAL EPIDURAL STEROID INJECTIO(Left) STEROID INJECTIO(Left) STEROID INJECTIO(Left) Comments Last Modified By: Markos LARA, Lulu Burrows RN, Lulu Mercer RN 11/28/24 10:21:12 11/28/24 10:21:12 11/28/24 10:21:12 Entry 4 Case Attendee Sofy Mix Role Performed Thermostat Maker Time In 11/28/24 10:16:00 Time Out 11/28/24 [...] and tissue Entry 1 Skin Integrity Intact, Lolo, Warm, & Skin Abnormality No Dry Outcomes [...] Under Knees Press Points Checked Yes By Lulu Burrwos RN Outcomes Met? Yes Last Modified By: Lulu Burrows RN 11/28/24 10:18:28 Post-Care Text: The patient is free from signs and symptoms of injury related to positioning Transport To OR FTPM Pre-Care Text: Transports according to individual needs. Evaluates for signs and symptoms of skin and tissue injury as a result of transfer or transport Entry 1 Via Cart By Lulu Burrows RN Safety Precautions Safety Strap, Side Outcomes Met? Yes Rails Up Last Modified By: Lulu Burrows RN 11/28/24 10:18:32 Post-Care Text: The patient is free from signs and symptoms of injury related to transfer/transport Skin Prep FTPM Pre-Care Text: Performs skin preparations Entry 1 Procedure TRANSFORAMINAL EPIDURAL Prep Area BLOCK INJECTION SITE STEROID INJECTIO(Left) Prep Agents Chloraprep/Dry Prior to Start Dry Time 11/28/24 10:16:00 Draping Stop Dry Time 11/28/24 10:19:00 Hair Removal Methods Not Indicated By Nolvia Rodas RN Outcomes Met? Yes Last Modified By: Lulu Burrows RN 11/28/24 10:18:41 Post-Care Text: The patient is free from signs and symptoms of infection Departure From OR FTPM Pre-Care Text: Transports according to individual needs. Evaluates for signs and symptoms of skin and tissue injury as a result of transfer or transport. Entry 1 Via Cart Safety Precautions Safety Strap, Side Rails Up PostOp Destination PACU Transported By Lulu Burrows RN Patient Status Stable Report Given Katherine Crockett RN To/Hand Off Communication Skin. Condition Dry, Intact Airway Maintenance Oxygen in Use? No Outcomes Met? Yes Last Modified By: Lulu Burrows RN 11/28/24 10:18:51 Post-Care Text: The patient is free from signs and symptoms of injury related to transfer/transport Dressing/Packing FTPM Pre-Care Text: Administers care to wound sites Entry 1 Type Dressing Site and Details 4x4 gauze dressing covered with Tegaderm Opsite to site Outcomes Met? Yes Last Modified By: Lulu Burrows RN 11/28/24 10:19:08 Post-Care Text: The patient is free from signs and symptoms of infection Medication Administration FTPM Pre-Care Text: Verifies allergies, administers prescribed medications and solutions, administers prescribed antibiotic therapy and immunizing agents as ordered, evaluates response to medications Administers prescribed medications and solutions Entry 1 Route of Admin Block Expiration Date Yes Verified Ordered By Babar Mayers DO Transcribed/To Lulu Burrows RN Field By Administered By Babar Mayers DO. Outcomes Met? Yes Last Modified By: Lulu Burrows RN 11/28/24 10:19:13 Post-Care Text: The patient received appropriate medication(s) safely administered during the perioperative period X-Rays & Images FTPM Pre-Care Text: Assess history of previous radiation exposure and implements protective measures Entry 1 X-Ray Type C-Arm Contrast Used? Yes Outcomes Met? Yes Last Modified By: Lulu Burrows RN 11/28/24 10:19:23 Post-Care Text: The patient is free from signs and symptoms of radiation injury Case Comments <None> Finalized By: Lulu Burrows RN Document Signatures Signed By: Lulu Burrows RN 11/28/24 10:21 MAIN OR PREOPERATIVE RECORD Observed: 10:15 AM Status: C Source: [facility] Main OR Preoperative Record Holding Area Document Type FTPM Summary Primary Physician: Babar Mayers DO Finalized Date/Time: 11/28/24 09:16:26 Pt. Name: SHAZIA CHOU Valentina/Sex: 1990 Female Med Rec #: [id number] Physician: Babar Mayers DO Financial #: [id number] Pt. Type: P Room/Bed: / Admit/Disch: 11/28/24 [...] day? Patient states Yes Comment - Adult Steffen- postop adult Supervision supervision available Case Cancelled in No Holding Area see comments below for reason Last Modified By: Gabrielle Sultana RN 11/28/24 09:06:49 Finalized By: Gabrielle Sultana RN Document Signatures Signed By: Gabrielle Sultana RN 11/28/24 09:04 Gabrielle Sultana RN 11/28/24 09:16 CONSULTATION NOTE Observed: 11/15/2024 2:10 PM Status: F Source: [facility] Consultation Note Patient: SHAZIA CHOU Age: 33 years Sex: Female : 1990 Associated Diagnoses: None Author: Annita Kate PA-C Basic Information Accompanied by: No [...] years and unfortunate, recently has gotten worse. She did physical therapy. Unfortunate, this did not give her any significant relief. She saw a spine surgeon. He discussed with her surgery based on her spondylolisthesis but he wanted her to try all conservative treatments first. She has taken bddr-xoc-unluhpb medication without any long-term relief. She states that her left leg pain affects her quality of life and affects her activities. 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 She is hopeful to be able to [...] All Problems Bipolar disorder / SNOMED CT 46307262 / Confirmed Pancreatic mass / SNOMED CT 3053709259 / Confirmed Smoker / SNOMED CT 948740740 / Confirmed Added secondary to documentation in Social History. Borderline personality disorder / SNOMED CT 66162029 / Confirmed History of bypass of stomach / SNOMED CT 9867017834 / Confirmed Vitamin D deficiency / SNOMED CT 95138766 / Confirmed Left breast mass / SNOMED CT 501451351 / Confirmed Hypertension / SNOMED CT 3692826725 / Confirmed Overweight (BMI 25.0-29.9) / SNOMED CT 1304038408 / Confirmed Muscle weakness-general / SNOMED CT 52115647 / Confirmed Chronic pain syndrome / SNOMED CT 4717469712 / Confirmed Iron deficiency anemia / SNOMED CT 115116863 / Confirmed noted in 09/16/2024 [facility] Records page 5. added per OP CDI policy. Alcohol abuse, uncomplicated / SNOMED CT 22007003 / Confirmed BMI 31.0-31.9,adult / SNOMED CT 958928285 / Confirmed Obesity (BMI 30-39.9) / SNOMED CT 351142514 / Confirmed Resolved: / SNOMED CT 865193059 Resolved: / SNOMED CT 865452763 Resolved: / SNOMED CT 425884346 Resolved: Alcohol abuse / SNOMED CT 57347677 Canceled: Anxiety and depression / SNOMED CT 04205193 Canceled: Plantar fasciitis of left foot / SNOMED CT 421786242 Canceled: Intracranial hypertension / SNOMED CT 650618907 Canceled: Smoker / SNOMED CT [id number] Added secondary to documentation in Social History. Canceled: Class 1 obesity with body mass index (BMI) of 32.0 to 32.9 in adult / SNOMED CT 5190264390 Canceled: Anxiety / SNOMED CT 79665322 Canceled: Depression / SNOMED CT 74518087 Canceled: Borderline personality disorder / SNOMED CT 02416990 Canceled: Class 1 obesity with body mass index (BMI) of 30.0 to 30.9 in adult / SNOMED CT 2527422304 Canceled: Former smoker / SNOMED CT 71697748 Canceled: Grief reaction / SNOMED CT 712266278 Canceled: Overweight with body mass index (BMI) of 29 to 29.9 in adult / SNOMED CT 4212631891 Canceled: Disorder of oral soft tissue / SNOMED CT 9165255352 Canceled: Intentional benzodiazepine overdose / SNOMED CT 7415344935 Canceled: Omental infarction / SNOMED CT 393242706 Canceled: Axillary lymphadenopathy / SNOMED CT 684127 Canceled: BMI 28.0-28.9,adult / SNOMED CT 3930394969 Canceled: Over weight / SNOMED CT 956026398 Canceled: Leukocytosis / SNOMED CT 434289398 Canceled: BMI 29.0-29.9,adult / SNOMED CT 3587714146 Canceled: Headache after spinal puncture / SNOMED CT 650440884 Canceled: Trapezius muscle spasm / SNOMED CT 3187950648 Canceled: Recovering alcoholic in remission / SNOMED CT 983471314 Canceled: Somatic dysfunction of head region / SNOMED CT 4997585033 Canceled: Somatic dysfunction of cervical region / SNOMED CT 0030817807 Canceled: Somatic dysfunction of thoracic region / SNOMED CT 7357743118 Canceled: BMI 30.0-30.9,adult / SNOMED CT 792003900 Histories Past Medical History: Resolved ([id number]): Onset on 06/14/2015 at 24 years. Resolved on 04/18/2016 at 25 years. ([id number]): Onset on 12/15/2012 at 21 years. Resolved in 2013 at 22 years. ([id number]): Onset on 12/22/2006 at 16 years. Resolved in 2007 at 16 years. Alcohol abuse ([id number]): Resolved. Family History: Primary malignant neoplasm of bladder Father Hypertension Mother Grandparent Diabetes mellitus type 1 Mother Grandparent Primary malignant neoplasm of female genital organ Mother Cardiac arrest Mother Grandparent Procedure history: Biopsy, breast, with placement of breast localization device(s) (eg, clip, metallic pellet), when performed, and imaging of the biopsy specimen, when performed, percutaneous; first lesion, including ultrasound guidance (CPT4 13447) on 07/11/2024 at 33 Years. Hysterectomy (SNOMED CT 199854193) performed by Gal Das MD on 12/05/2022 at 31 Years. Endoscopic plantar fasciotomy (CPT4 13696) performed by Bruce Pennington DPM on 02/16/2020 at 29 Years. Endoscopic plantar fasciotomy (CPT4 13819) performed by Bruce Pennington DPM on 06/02/2019 at 28 Years. Comments: 06/02/2019 10:31 EDT - Nu Sears RN Endoscopic plantar fasciotomy, right foot LEFT ELBOW ULNAR NERVE DECOMPRESSION on 02/11/2019 at 28 Years. x3. History of tubal ligation (SNOMED CT 4784316023). Gastric bypass operation (SNOMED CT 61441036). Foot (SNOMED CT 9207645321). Comments: 07/01/2021 9:42 EDT - Eli Lizama MA reconstruction Lumbar puncture to lower intracranial pressure (SNOMED CT 034887039). R foot Reconstruction (SNOMED CT 9598250092). Social History Social & Psychosocial Habits Alcohol 10/18/2024 Risk Assessment: Medium Risk 10/18/2024 Use: Current Type: Liquor Frequency: 3-5 times per week Comment: gurpreet - 04/03/2022 17:30 - Sailaja Kamara RN 10/18/2024 Type: Beer Frequency: 3-5 times per week Substance Abuse 10/18/2024 Risk Assessment: Denies Substance Abuse Tobacco 10/18/2024 Risk Assessment: High Risk 10/18/2024 Tobacco Use: 10 or more cigarettes (1/ Smokeless tobacco use: Never Type: Cigarettes Started at age: 11.0 Years Concerns about tobacco use in household: No Smoking Cessation Yes . Physical Examination Vital Signs (last 24 hrs) Last Charted Heart Rate Peripheral 90 bpm (NOV 15 13:35) SBP 131 mmHg (NOV 15 13:35) DBP H 93 mmHg (NOV 15 13:35) Weight 88.45 kg (NOV 15 13:35) BMI 30.61 (NOV 15 13:35) General: Alert and oriented, No acute distress. HENT: Normocephalic, Normal hearing. Respiratory: Respirations are non-labored. Cardiovascular: No edema. Musculoskeletal Normal range of motion. Normal strength. Positive left seated straight leg raise Left ADF and EHL 4+ 5 -/5 with pain. Neurologic: Alert, Oriented. Cognition and Speech: Oriented, Speech clear and coherent. Psychiatric: Cooperative, Appropriate mood & affect. Integumentary: Warm, Dry, Lolo. Review / Management Results review: No qualifying data available . * Final Report * Reason For Exam M43.16 POWERSCRIBE REPORT IMPRESSION: Anterolisthesis of L5 on S1 measuring [...] Facet degenerative changes. Mild to moderate bilateral foraminal narrowing without canal narrowing. Sacrum and iliac wings: The visualized sacrum and iliac wings are within unremarkable. The presacral soft tissues are grossly unremarkable. Ordering Provider: David Zazueta Signature Line FINAL REPORT Dictated: 11/12/2024 10:38 am Dominguez You MD Signed (Electronic Signature): 11/12/2024 10:38 am Signed by: Dominguez You MD Transcribed by: MARCO Technologist: MANDI RAD REPORT This document has an image Result type: MRI Spine Lumbar w/o Contrast Result date: November 11, 2024 20:11 EST Result status: Auth (Verified) Result title: MRI Spine Lumbar w/o Contrast Performed by: Dominguez You MD on November 12, 2024 10:38 EST Verified by: Dominguez You MD on November 12, 2024 10:38 EST Encounter info: [id number], Harpreet Casillas, Outpatient, 11/11/2024 - 11/11/2024 Impression and Plan Patient is a 33-year-old [...] clinic sooner if necessary. NOAH score: 42%. Result Comment: Electronical ly Signed By: Humble GERONIMO, Annita\.benito\Date and Time Signed: 11/15/24 14:14 EST MRI SPINE LUMBAR W/O CONTRAST Observed: 11/11/2024 6:33 PM Status: F Source: [facility] Exam Date/Time: 11/11/2024 20:11 EST Reason for [...] Zazueta FINAL REPORT Dictated: 11/12/2024 10:38 am Kenyatta BHAKTA, Dominguez Lunsford Signed (Electronic Signature): 11/12/2024 10:38 am Signed by: Dominguez You MD Transcribed by: MARCO Technologist: MANDI NONVISIT NOTE - PT Observed: 11/10/2024 12:40 PM Status: F Source: [facility] Nonvisit Note - PT -per and her insurance will not cover. NONVISIT NOTE - PT Observed: 11/09/2024 9:28 AM Status: F Source: [facility] Nonvisit Note - PT Shazia called to cancel her remaining appointments. She said per request of her doctor and insurance will not cover it NONVISIT NOTE - PT Observed: 11/08/2024 12:42 PM Status: F Source: [facility] Nonvisit Note - PT - pt is having issues with her insurance and wants to figure it out first XR FEMUR MIN 2 VIEWS LEFT Observed: 10/15 7:35 AM Status: F Source: [facility] Exam Date/Time: 11/02/2024 07:56 EST Reason for [...] Snyder MD Transcribed by: MARCO Technologist: CHANCE XR SPINE LUMBOSACRAL MINIMUM 4 VIEWS Observed: 11/02/2024 7:30 AM Status: F Source: [facility] Exam Date/Time: 11/02/2024 07:56 EST Reason for [...] Francisco Pena Transcribed by: MARCO Technologist: CHANCE NONVISIT NOTE - PT Observed: 11/01/2024 2:35 PM Status: F Source: [facility] Nonvisit Note - PT Chart reviewed with eval prepped for scheduled eval. [facility] PATIENT EDUCATION NOTE Observed: 12/2024 8:40 AM Status: F Source: [facility] ED Patient Education Note Mental and Behavioral Health Chronic Pain, Adult Chronic pain is a type of pain that lasts or keeps coming back for at least 3?6 months. You may have headaches, pain in the abdomen, or pain in other areas of the body. Chronic pain may be related to an illness, injury, or a health condition. Sometimes, [...] skin (aromatherapy). Other treatments may include: ??? Eewp-fys-rloghta or prescription medicines. ??? Color, light, or sound therapy. ??? Local electrical stimulation. The electrical pulses help to relieve pain by temporarily stopping the nerve impulses that cause you to feel pain. ??? Injections. These deliver numbing or pain-relieving medicines into the spine or the area of pain. Medicines ??? Take ggyb-jad-kdzcwdy and prescription medicines only as told by your health care provider. ??? Ask your health care provider if the medicine prescribed to you: ? Requires you to avoid driving or using machinery. ? Can cause constipation. You may need to take these actions to prevent or treat constipation: ? Drink enough fluid to keep your urine pale yellow. ? Take fdvx-usk-kstpavr or prescription medicines. ? Eat foods that [...] the National Suicide Prevention Lifeline at or 997. This is open 24 hours a day. ??? Text the Crisis Text Line at 675147. This information is not intended to replace advice given to you by your health care provider. Make sure you discuss any questions you have with your health care provider. Document Revised: 04/22/2023 Document Reviewed: 03/25/2023 [email or web address] Patient Education ? 2023 [employer] ED PATIENT SUMMARY Observed: 10/18/2024 8:40 AM Status: F Source: [facility] ED Patient Summary [place] [id number] Patient Discharge Instructions Person Information Name: SHAZIA CHOU Age: 33 Years Arrival Date: 10/18/2024 08:04:01 Discharge Diagnosis: Chronic pain Primary Care Physician: KURT BALBUENA CNP Provider Information Primary Provider: Jose Correia M.D. Advanced Jalousie Installer:Beto Shea PA-C The exam and treatment you received in the Emergency Department were for an urgent problem and are not intended as complete care. It is important that you follow up with a doctor, nurse practitioner, or physician???s certified pathology assistant for ongoing care. If your symptoms [...] Follow-up Instructions: With: Address: When: KURT BALBUENA [address] [place] [address] [phone] Business (1) In 3 days 10/21/2024 In the event that this physician does not participate in your insurance network, please consult with your insurance company to find a nearby participating provider. Patient Education Materials: Chronic Pain, Adult A MESSAGE TO ALL PATIENTS REGARDING OPIOIDS PRESCRIPTION OPIOIDS: WHAT YOU NEED TO KNOW Prescription opioids can be used to help relieve bameivgr-we-qcdqvd pain and are often prescribed following a [...] guidance from the Food and Drug Administration (www.fda.gov/Drugs/ResourcesForYou). ??? Visit www.cdc.gov/drugoverdose to learn about the risks of opioids abuse and overdose. ??? If you believe you may be struggling with addiction, tell your health manager progressive care and ask for guidance or call [facility]???S National Helpline at 9-869-095-ZOQD. v Source: US Department of Health and Human Services/Center for Disease Control & Prevention [facility] Medications Given: Medication Dose Route No medications found. Medication Information: New Medications [facility]/pharmacy #[id number], [address], [place] [id number], [phone] methocarbamol (Robaxin-750 oral tablet) 2 Tablets By [...] Mouth once a day (at bedtime). Comment: Patient Portal You may access all of your results and other medical record information on our secure patient portal. If you are not signed up for this yet, please contact URBANARA at [phone] to get signed up today. SONIYA Award Nomination The SONIYA (Diseases Attacking the Immune SYstem) Award is an international recognition program that honors and celebrates the skillful, compassionate care nurses provide every day. Anyone who experiences or observes amazing care being provided by a nurse is encouraged to submit a nomination. To nominate your nurse, use your smart phone to scan the QR code below. You may receive a survey from [employer] asking you to rate your care experience. Your feedback is important and will help us understand what we do well and how we can improve the quality of care we provide to you, your loved ones and our community. It???s an honor to serve you. Thank you for choosing [facility] Patient Education Materials: Chronic Pain, Adult Chronic pain is a type of pain that lasts or keeps coming back for at least 3?6 months. You may have headaches, pain in the abdomen, or pain in other areas of the body. Chronic pain may be related to an illness, injury, or a health condition. Sometimes, [...] skin (aromatherapy). Other treatments may include: ??? Bylh-mfg-vuhbvhv or prescription medicines. ??? Color, light, or sound therapy. ??? Local electrical stimulation. The electrical pulses help to relieve pain by temporarily stopping the nerve impulses that cause you to feel pain. ??? Injections. These deliver numbing or pain-relieving medicines into the spine or the area of pain. Medicines ??? Take qfys-xti-ytmkduq and prescription medicines only as told by your health care provider. ??? Ask your health care provider if the medicine prescribed to you: ? Requires you to avoid driving or using machinery. ? Can cause constipation. You may need to take these actions to prevent or treat constipation: ? Drink enough fluid to keep your urine pale yellow. ? Take vxry-zbx-vtcbtoq or prescription medicines. ? Eat foods that [...] the National Suicide Prevention Lifeline at or 293. This is open 24 hours a day. ??? Text the Crisis Text Line at 891374. This information is not intended to replace advice given to you by your health care provider. Make sure you discuss any questions you have with your health care provider. Document Revised: 04/22/2023 Document Reviewed: 03/25/2023 Elsevier Patient Education ? 2023 [email or web address] I, SHAZIA CHOU , have received the following patient education materials/instructions and have verbalized understanding: Patient Education Materials: Chronic Pain, Adult Follow-up Instructions: With: Address: When: KURT BALBUENA [address] [place] [address] [phone] Business (1) In 3 days 10/21/2024 Patient Signature Date Clinician/Nurse Signature Date 10/18/2024 08:40:04 ED CLINICAL SUMMARY Observed: 10/18/2024 8:40 AM Status: F Source: [facility] ED Clinical Summary [place] [id number] ED Clinical Summary Person Information Name: SHAZIA CHOU [facility]real [facility] Age: 33 Years : 1990 Sex: Female Language: Panamanian PCP: KURT BALBUENA CNP Marital Status: Visit [...] 10/18/2024 08:40:02 10/18/2024 08:40:02 10/18/2024 08:40:02 ADDRESS: [address] [place] [phone] PHYS DOC NOTES: MEDICAL INFORMATION: Prescriptions Given: New Medications [id number], [address], [place] [phone], [phone] methocarbamol (Robaxin-750 oral tablet) 2 Tablets By [...] Follow up: With: Address: When: KURT BALBUENA [address] [place] [address] [phone] Business (1) In 3 days 10/21/2024 DIAGNOSIS: Chronic pain ED NOTE-PHYSICIAN Observed: 10/18/2024 8:25 AM Status: F Source: [facility] ED Note-Physician Basic Information Time Seen: Beto Shea PA-C 10/18/2024 08:20 Chief Complaint Pt reports lower back pain and left leg pain. Pt reports she has seen multiple doctors and no one can figure out what is oging on. Pain since . Has seen PCP, [place] [facility], Neuro. EMG and CTA of head/neck [...] day(s), # 18 tab(s), Refills(s) 0, Pharmacy: [facility]/pharmacy #[id number], 170, cm, 10/18/24 8:12:00 EST, Height/Length Dosing, 90, kg, 10/18/24 8:12:00 EST, Weight Dosing predniSONE, 60 mg = 3 tab(s), Oral, Daily, X 7 day(s), # 21 tab(s), Refills(s) 0, Pharmacy: [facility]/pharmacy #[id number], 170, cm, 10/18/24 8:12:00 [...] Information KURT BALBUENA In 3 days 10/21/[address] [address] [facility] (1) Additional Instructions: Patient Education Chronic Pain, [...] made to ensure accuracy, however, inadvertently computerized floor helper mistakes may be present. Appropriate healthcare PPE was used in evaluating this patient. Problem List/Past Medical History Ongoing Alcohol abuse, uncomplicated Bipolar disorder BMI 31.0-31.9,adult Borderline personality disorder Chronic pain syndrome History of bypass of stomach Hypertension Iron deficiency anemia Left breast mass Muscle weakness-general Obesity (BMI 30-39.9) Overweight (BMI 25.0-29.9) Pancreatic mass Smoker Vitamin D deficiency Historical Alcohol abuse Procedure/Surgical History Biopsy, breast, with placement of breast localization device(s) (eg, clip, metallic pellet), when performed, and imaging of the biopsy specimen, when performed, percutaneous; first lesion, including ultrasound guidance (07/11/2024), Hysterectomy (12/05/2022), Endoscopic plantar fasciotomy (02/16/2020), Endoscopic plantar fasciotomy (06/02/2019), LEFT ELBOW ULNAR NERVE DECOMPRESSION (02/11/2019), c- section x3, Foot, Gastric bypass operation, History of tubal ligation, Lumbar puncture to lower intracranial pressure. Medications Inpatient No active inpatient medications Home Cymbalta, 60 mg, Oral, BID ferrous sulfate 325 mg Tab gabapentin 300 mg Cap, 300 mg= 1 cap(s), Oral, TID lamotrigine 25 mg Tab Multi-Day Plus Minerals, Oral, Daily trazodone, 100 mg, Oral, Once a day (at bedtime) Tylenol, 325 mg, Oral, q4hr, PRN Zofran 8 mg Tab, 8 mg= 1 tab(s), Oral, BID, 1 refills Allergies Abilify (suicidal) BuSpar (palpitations) Coconut Oil (Swelling, Itching) Social History Alcohol - Medium Risk, 07/01/2021 Beer. 3-5 times per week., 10/14/2024 Current, Liquor, 3-5 times per week, 01/29/2022 Substance Abuse - Denies Substance Abuse, 02/11/2019 Never., 09/15/2024 Tobacco - High Risk, 02/07/2020 10 or more cigarettes (1/2 pack or more)/day in last 30 days Tobacco Use:. Never Smokeless Tobacco Use:. Cigarettes, Started age 11.0 Years. Household tobacco concerns: No. Yes, 10/14/2024 Family History Cardiac arrest: Mother and Grandparent. Diabetes mellitus type 1: Mother and Grandparent. Hypertension: Mother and Grandparent. Primary malignant neoplasm of bladder: Father. Primary malignant neoplasm of female genital organ: Mother. Lab Results No qualifying data available.Diagnostic Results No qualifying data available. Result Comment: Electronical ly Signed By: Beto Shea PA-C\.br\Date and Time Signed: 10/18/24 09:04 EST\.br\Electronically Co-Signed By: Jose Correia M.D.\.br\Date and Time Co-Signed: 10/18/24 09:07 EST PROGRESS Observed: 10/17/2024 12:21 PM Status: COMPLETED [facility] ID: [id number] Author: MELISSA PAIGE MA Service: ? Author Type: Acls Specialist Type: Progress Notes Filed: 10/17/2024 12:28 Note [...] or unnecessary to reach patient: Left message [employer] message sent HCC related Navigation Signature: Melissa Paige MA October 17, 2024 12:23 PM CNPTOUTREACH Observed: 10/17/2024 12:00 AM Status: COMPLETED Source: [facility] Patient Outreach (NETNAV) SHAZIA CHOU ([id number]) 1990 F Date Time Provider Department 10/17/24 MELISSA PAIGE During your visit today, we recorded the following information about you: Melissa Paige MA 10/17/2024 12:28 PM Signed [facility] [...] or unnecessary to reach patient: Left message [employer] message sent HCC related Navigation Signature: Melissa Paige MA October 17, 2024 12:23 PM Allergies [...] mg by mouth daily at bedtime. - cvgegvtacwzs-oem-wbvy-FA-vit K (BARIATRIC MULTIVITAMINS) 45 mg iron- 800 [...] disorder [F41.0] 03/08/2024 Encounter Status:Closed by MELISSA PAIGE on 10/17/24 FAMILY MEDICINE OFFICE/CLINI C NOTE Observed: 10/14/2024 9:39 AM Status: F Source: [facility] Family Medicine Office/Clini c Note Chief Complaint Pain follow up HPI Staff Pt presents today for 2wk follow up to chronic pain. Treated w/gabapentin 100mg. Pt denies relief from pain with med. Brain MRI? Has not scheduled yet due to rescheduling on pt's end. Rheumatoid factor ordered last encounter. NEG (done @ [facility]) Referred to [facility]. Did see, but waiting for MRI brain results. PHQ9: 14 Does see psychiatrist. Concerned she may have Raynaud's. 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 History of Present Illness 33 year old [...] to rheumatology as the MD at [facility] suggested she may have Raynaud's [...] TID, # 90 cap(s), Refills(s) 0, Pharmacy: [facility]/pharmacy #[id number], 170, cm, 10/14/24 9:02:00 EST, Height/Length Dosing, 90.2, kg, 10/14/24 9:02:00 EST, Weight Dosing 2. Raynaud phenomenon (I73.00: Raynaud's syndrome without gangrene) Ordered: [facility] External Ambulatory Referral 3. Alcohol abuse, uncomplicated [...] BALBUENA CNP, FAM Within 6 weeks [address] [place] [address] Business (1) Additional Instructions: Chronic pain syndrome Patient Education Binge-Drinking Information, Adult Problem List/Past Medical History Ongoing Alcohol abuse, uncomplicated Bipolar disorder BMI 31.0-31.9,adult Borderline personality disorder Chronic pain syndrome History of bypass of stomach Hypertension Iron deficiency anemia Left breast mass Muscle weakness-general Obesity (BMI 30-39.9) Overweight (BMI 25.0-29.9) Pancreatic mass Smoker Vitamin D deficiency Historical Alcohol abuse Procedure/Surgical History Biopsy, breast, with placement of breast localization device(s) (eg, clip, metallic pellet), when performed, and imaging of the biopsy specimen, when performed, percutaneous; first lesion, including ultrasound guidance (07/11/2024), Hysterectomy (12/05/2022), Endoscopic plantar fasciotomy (02/16/2020), Endoscopic plantar fasciotomy (06/02/2019), LEFT ELBOW ULNAR NERVE DECOMPRESSION (02/11/2019), c- section x3, Foot, Gastric bypass operation, History of tubal ligation, Lumbar puncture to lower intracranial pressure. Medications Cymbalta, 60 mg, Oral, BID ferrous sulfate 325 mg Tab gabapentin 300 mg Cap, 300 mg= 1 cap(s), Oral, TID lamotrigine 25 mg Tab Multi-Day Plus Minerals, Oral, Daily trazodone, 100 mg, Oral, Once a day (at bedtime) Tylenol, 325 mg, Oral, q4hr, PRN Zofran 8 mg Tab, 8 mg= 1 tab(s), Oral, BID, 1 refills Allergies Abilify (suicidal) BuSpar (palpitations) Coconut Oil (Swelling, Itching) Social History Alcohol - Medium Risk, 07/01/2021 Beer. 3-5 times per week., 10/14/2024 Current, Liquor, 3-5 times per week, 01/29/2022 Substance Abuse - Denies Substance Abuse, 02/11/2019 Never., 09/15/2024 Tobacco - High Risk, 02/07/2020 10 or more cigarettes (1/2 pack or more)/day in last 30 days Tobacco Use:. Never Smokeless Tobacco Use:. Cigarettes, Started age 11.0 Years. Household tobacco concerns: No. Yes, 10/14/2024 Family History Cardiac arrest: Mother and Grandparent. [...] Recorded influenza virus vaccine, inactivated 07/09/2020 Recorded Result Comment: Electronical ly Signed By: KURT BALBUENA CNP\Date and Time Signed: 10/14/24 09:39 EST PATIENT EDUCATION Observed: 10/14/2024 9:38 AM Status: F Source: [facility] Patient Education Mental and Behavioral Health Binge-Drinking Information, [...] plan to use machinery, such as a detonator assembler or power tool. ? You have a health condition that alcohol can make worse. ? You take medicines that are affected by alcohol, including prescription pain medicines. ? You are recovering from alcohol use disorder. ??? Develop skills to manage your moods and emotions so you do not need to drink to cope with them. This may include using stress reduction techniques such [...] National Drug and Alcohol Treatment Referral Service: 2-128-670-ZGEZ (9830) ??? Alcoholics Anonymous, Alcoholics Resource Center: ??? Substance Abuse and Mental Health Services Administration: samhsa.gov Where to find more information: ??? Centers for Disease Control and Prevention: cdc.gov ??? National [place] on Alcohol Abuse and Alcoholism: niaaa.nih.gov/alcohol Contact [...] or have thoughts about taking your own life. ??? Call 091. ??? Call the National Suicide Prevention Lifeline at or 944. This is open 24 hours a day. ??? Text the Crisis Text Line at 188597. Summary ??? Binge-drinking refers to drinking a large amount of alcohol in a short time. This is usually 5 drinks for men or 4 drinks for women, on one occasion. ??? Binge-drinking can lead to serious health problems, such as heart disease, liver disease, or cancer. ??? Binge-drinking raises your risk of developing alcohol dependence (alcohol use disorder) and social and relationship problems. ??? Talk with your health care provider about your drinking habits. They may recommend counseling if you drink too much. This information is not intended to replace advice given to you by your health care provider. Make sure you discuss any questions you have with your health care provider. Document Revised: 11/17/2022 Document Reviewed: 11/17/2022 [employer]Grade Patient Education ? 2023 [email or web address] AMBULATORY VISIT SUMMARY Observed: 10/14 9:27 AM Status: F Source: [facility] Ambulatory Visit Summary SHAZIA CHOU Isreal :1990 Visit Date:10/14/2024 Ambulatory Visit Instructions Your [...] (06/02/2019), LEFT ELBOW ULNAR NERVE DECOMPRESSION (02/11/2019), c- section x3, Foot, Gastric bypass operation, History of tubal ligation, Lumbar puncture to lower intracranial pressure. Discharge Vitals Temperature (Tympanic) 36.7 ???C Heart Rate (Peripheral) 75 Blood Pressure 132/84 Height 170 cm Height 67 in Weight 90.2 kg Weight 198.857 lb BMI 31.21 What to do next Scheduled Follow-Up Appointments Thursday 8:00 AM EST With: KURT BALBUENA CNP Where: [address] [address]- Medications What How Much When Why Instructions [...] you for choosing us for your care. PRE-VISIT PLANNING Observed: 10/13/2024 2:16 PM Status: C Source: [facility] Pre-Visit Planning From: Lina Chirinos To: KURT BALBUENA CNP; Sent: 10/13/2024 14:16:22 EST Subject: Pre-Visit Planning Due Date/Time: 10/13/2024 14:16:00 EST Caller Name: SHAZIA CHOU; Caller Number: Jonathan , M [phone] Antonio Lanier. During a pre-visit planning chart review, I noted the following documentation in the medical record: Current Problem List: Alcohol abuse, uncomplicated. 11/03/2022 Office Visit Note: HPI- Pt reports her sobriety is under control. 50 days sober. Currently not drinking. Pt reports she started drinking heavily about 16 mo ago when her mother . Pt is currently using Naltrexone. 06/09/2023 [facility] ED Note: HPI- The patient states that [...] error. 09/16/2024 [facility] Records (page 11): Office Visit dated 06/16/2024- HPI- Pt. is seeing Wilver for . Pt. is an alcoholic and [...] feel free to contact me at extension [phone]. Lina Chirinos LPN Clinical Senior Contracts Manager [place] [phone] Extension: [phone] [email or web address] From: KURT BALBUENA CNP To: Lina Chirinos; [...] continue with counseling f/u in 4-6 weeks FAMILY MEDICINE OFFICE/CLINI C NOTE Observed: 09/30/2024 10:29 AM Status: F Source: [facility] Family Medicine Office/Clini c Note HPI Staff Shazia is a 33 [...] her previous pcp in July, to the [facility] ED on 09/05/2024 and again on 09/11/2024. She was seen by a provider at [facility] on 09/05/2024 and additional laboratory testing was [...] results from [facility] Awaiting results from the Rheumatoid factor & [facility] Awaiting consult information form [facility] MRI scheduled for Thursday f/u in 2 weeks Ordered: gabapentin, 100 mg = 1 cap(s), Oral, TID, # 90 cap(s), Refills(s) 0, Pharmacy: [facility]/pharmacy #[id number], 170, cm, 09/30/24 9:53:00 [...] (06/02/2019), LEFT ELBOW ULNAR NERVE DECOMPRESSION (02/11/2019), c- section x3, Foot, Gastric bypass operation, History of tubal ligation, Lumbar puncture to lower intracranial pressure. Medications Cymbalta, 60 mg, Oral, BID ferrous sulfate 325 mg Tab gabapentin 100 mg Cap, 100 mg= 1 cap(s), Oral, TID lamotrigine 25 mg Tab Multi-Day Plus Minerals, [...] Never., 09/15/2024 Tobacco - High Risk, 02/07/2020 5-9 cigarettes (between 1/4 to 1/2 pack)/day in last 30 days Tobacco Use:. Cigarettes, Started age 9.0 Years. Household tobacco concerns: No. Yes, 09/30/2024 Family History Cardiac arrest: Mother and Grandparent. [...] Recorded influenza virus vaccine, inactivated 07/09/2020 Recorded Result Comment: Electronical ly Signed By: KURT BALBUENA CNP\.benito\Date and Time Signed: 09/30/24 10:29 EST PATIENT EDUCATION Observed: 09/30/2024 10:28 AM Status: F Source: [facility] Patient Education Mental and Behavioral Health Chronic Pain, Adult Chronic pain is a type of pain that lasts or keeps coming back for at least 3?6 months. You may have headaches, pain in the abdomen, or pain in other areas of the body. Chronic pain may be related to an illness, injury, or a health condition. Sometimes, [...] skin (aromatherapy). Other treatments may include: ??? Sosn-cvn-kdomkcq or prescription medicines. ??? Color, light, or sound therapy. ??? Local electrical stimulation. The electrical pulses help to relieve pain by temporarily stopping the nerve impulses that cause you to feel pain. ??? Injections. These deliver numbing or pain-relieving medicines into the spine or the area of pain. Medicines ??? Take rkdw-dgi-nezhqgd and prescription medicines only as told by your health care provider. ??? Ask your health care provider if the medicine prescribed to you: ? Requires you to avoid driving or using machinery. ? Can cause constipation. You may need to take these actions to prevent or treat constipation: ? Drink enough fluid to keep your urine pale yellow. ? Take omor-kzj-gwocfpx or prescription medicines. ? Eat foods that [...] the National Suicide Prevention Lifeline at or 241. This is open 24 hours a day. ??? Text the Crisis Text Line at 425919. This information is not intended to replace advice given to you by your health care provider. Make sure you discuss any questions you have with your health care provider. Document Revised: 04/22/2023 Document Reviewed: 03/25/2023 [employer]Grade Patient Education ? 2023 [email or web address] AMBULATORY VISIT SUMMARY Observed: 09/30 10:19 AM Status: F Source: [facility] Ambulatory Visit Summary SHAZIA CHOU :1990 Visit [...] (06/02/2019), LEFT ELBOW ULNAR NERVE DECOMPRESSION (02/11/2019), c- section x3, Foot, Gastric bypass operation, History of tubal ligation, Lumbar puncture to lower intracranial pressure. Discharge Vitals Temperature (Oral) 36.5 ???C Heart Rate (Peripheral) 90 Respiratory Rate 18 Blood Pressure 130/80 Height 170.0 cm Height 67 in Weight 89.7 kg Weight 197.754 lb BMI 31.04 What to do next Scheduled Follow-Up Appointments Thursday 9:00 AM EST With: KURT BALBUENA CNP Where: [place] [phone]- Medications What How Much When Why Instructions New gabapentin (gabapentin 100 mg Cap) 1 Capsules By Mouth 3 times a day Chronic pain syndrome Pickup at [facility]/pharmacy #[id number] Unchanged acetaminophen (Tylenol) 325 Milligram By Mouth [...] Once a day (at bedtime) Pharmacy Information [facility]/pharmacy #[id number]: [address], [place] [phone] Allergies Abilify (suicidal) BuSpar (palpitations) Coconut Oil [...] you for choosing us for your care. FAMILY MEDICINE OFFICE/CLINI C NOTE Observed: 09/27/2024 12:39 PM Status: F Source: [facility] Family Medicine Office/Clini c Note HPI Staff Shazia is a 33 [...] report she has an appointment today at [facility] for an EMG. She is not sure [...] (06/02/2019), LEFT ELBOW ULNAR NERVE DECOMPRESSION (02/11/2019), c- section x3, Foot, Gastric bypass operation, History of [...] Recorded influenza virus vaccine, inactivated 07/09/2020 Recorded Result Comment: Electronical ly Signed By: KURT BALBUENA CNP\mayelin\Date and Time Signed: 09/27/24 12:39 EST FAMILY MEDICINE OFFICE/CLINI C NOTE Observed: 09/20/2024 11:15 AM Status: F Source: [facility] Family Medicine Office/Clini c Note HPI Staff Shazia is a 33 [...] for a full Vitamin panel. ER visit [facility] - malnutrition Gave magnesium pill 1 pill [...] the ED. She reports she went to [facility] and it was recommended that she [...] Folate Level Iron Level Lab Specimen Collect 67559 Magnesium Level TIBC Calculated Vitamin A Level [...] (06/02/2019), LEFT ELBOW ULNAR NERVE DECOMPRESSION (02/11/2019), c- section x3, Foot, Gastric bypass operation, History of [...] History Alcohol - Medium Risk, 07/01/2021 Beer. Daily., 09/20/2024 Current, Liquor, 3-5 times per week, 01/29/2022 Substance Abuse - Denies Substance Abuse, 02/11/2019 Never., 09/15/2024 Tobacco - High Risk, 02/07/2020 10 or more cigarettes (1/2 pack or more)/day in last 30 days Tobacco Use:. Cigarettes, Started age 9.0 Years. Household tobacco concerns: No. Yes, 09/20/2024 Family History Cardiac arrest: Mother and Grandparent. [...] Recorded influenza virus vaccine, inactivated 07/09/2020 Recorded Result Comment: Electronical ly Signed By: KURT BALBUENA CNP\mayelin\Date and Time Signed: 09/20/24 11:15 EST FOLATE Collected: 5 11:09 AM Status: F Source: [facility] TYPE CODE TESTS RESULT OUT OF RANGE REFERENCE UNITS LAB 2284-8(LOINC) FOLATE:MCNC:P T:SER/PLAS:QN : >22.3 Normal >=6.7 ng/mL Performed By: #### [id number] # ### [facility] [address] [place] [address] VIT B12 Collected: 5 11:09 AM Status: F Source: [facility] TYPE CODE TESTS RESULT OUT OF RANGE REFERENCE UNITS LAB 2132-9([facility]) COBALAMINS:MC NC:PT:SER/AIMEE S:QN: 626 Normal 50-1500 pg/mL Performed By: #### [id number] # ### [facility] [address] [place] [address] MAGNESIUM Collected: 5 11:09 AM Status: F Source: [facility] TYPE CODE TESTS RESULT OUT OF RANGE REFERENCE UNITS LAB 95747-7([facility]) MAGNESIUM:MCN C:PT:SER/PLAS :QN: 2.2 Normal 1.3-2.4 mg/dL Performed By: #### [id number] # ### [facility] [address] [place] [address] IRON Collected: 5 11:09 AM Status: F Source: [facility] TYPE CODE TESTS RESULT OUT OF RANGE REFERENCE UNITS LAB 2498-4([facility]) IRON:MCNC:PT :SER/PLAS:QN : 124 Normal 35-153 microgram/ dL Performed By: #### [id number] # ### [facility] [address] [place] [address] TIBC CALCULATED Collected: 09/20/2024 11:09 AM Statu s: F Source: [facility] TYPE CODE TESTS RESULT OUT OF RANGE REFERENCE UNITS LAB 2500-7([facility]) IRON BINDING CAPACITY:MCNC:P T:SER/PLAS:QN: 455 High 250-400 microgram /dL LAB [id number]([facility]) Transferrin 325 Normal 200-370 mg/d L Performed By: #### [id number] #### [facility] [address] [place] [address]84 VITAMIN D 25 HYDROXY Collected: 025 11:09 AM Status: F Source: [facility] TYPE CODE TESTS RESULT OUT OF RANGE REFERENCE UNITS LAB 1988-3(LOINC) CALCIDIOL:MCN C:PT:SER/PLAS :QN: 43.7 Normal 30.0-100.0 ng/mL Performed By: #### [id number] #### [facility] [address] [place] [address] FERRITIN Collected: 5 11:09 AM Status: F Source: [facility] TYPE CODE TESTS RESULT OUT OF RANGE REFERENCE UNITS LAB 2276-4([facility]) FERRITIN:MCNC :PT:SER/PLAS: QN: 10 Low 11-307 ng/mL Performed By: #### [id number] # ### [facility] [address] [place] [address] VIT A Collected: 5 11:09 AM Status: F Source: [facility] TYPE CODE TESTS RESULT OUT OF RANGE REFERENCE UNITS LAB 2923-1([facility]) RETINOL:MCN C:PT:SER/PL :QN: 68.4 High 18.9-57.3 microgram /dL Result Comment: Reference in tervals for vitamin A determined from [facility] internal studies. Individuals with vitamin A less than 20 ug/dL are considered vitamin A deficient and those with serum concentrations less than 10 ug/dL are considered severely deficient. This test was developed and its performance characteristics determined by [facility]. It has not been cleared or approved by the Food and Drug Administration. Performed at: [address] [id number] MD Shorty Rodríguez Performed By: #### [id number] #### [facility] [address] [place] [address] AMBULATORY VISIT SUMMARY Observed: 09/20 11:07 AM Status: F Source: [facility] Ambulatory Visit Summary SHAZIA CHOU :1990 Visit [...] (06/02/2019), LEFT ELBOW ULNAR NERVE DECOMPRESSION (02/11/2019), c- section x3, Foot, Gastric bypass operation, History of [...] you for choosing us for your care. XR CHEST 2V* Observed: 09/15/2024 3:56 PM Status: COMPLETED Source: [address] [address] XRay Report Signed Patient: Shazia Chou MR#: [id number] : 1990 Acct:[id number] Age/Sex: 33 / F ADM Date: 09/15/24 Loc: ER Room: Type: [facility] ER Attending Dr: Copies to: Sailaja Anderson [...] No acute cardiopulmonary pathology. Impression dictated by: Molina Shetty M.D.09/15/2024 3:56 PM Dictation Location: [place] [address] Transcribed By: [facility] 09/15/24 1556 Dictated By: Molina Shetty II, MD 09/15/24 1556 Signed By: <Electronically signed by Molina Shetty II, MD in OV> 09/15/[address] ANGIO HEAD Observed: 09/15/2024 3:46 PM Status: COMPLETED Source: [address] [address] [place] Scan Report Signed Patient: Shazia Chou MR#: [id number] : 1990 Acct:[id number] Age/Sex: 33 / F ADM Date: 09/15/24 Loc: ER Room: Type: [facility] ER Attending Dr: Copies to: Sailaja Anderson APRN Ordering Provider: Sailaja Anderson APRN Date of Service: 09/15/24 CT/CT angio head: weakness ([id number]) CT/CT angio neck: weakness ([id number]) CT/CT head/brain wo con: weakness CT head/brain [...] history of pseudotumor cerebri. Impression dictated by: Molina Shetty M.D.09/15/2024 3:56 PM Dictation Location: [place] [address] Transcribed By: [facility] 09/15/24 1556 Dictated By: Molina Shetty II, MD 09/15/24 1546 Signed By: <Electronically signed by Molina Shetty II, MD in OV> 09/15/24 1556 DIPSTICK AND MICROSCOPIC Collected: 10/2024 3:20 PM Status: F Source: [facility] Order Comment: Name Collecti on Type:: Clean-Voided Midstream TYPE CODE TESTS RESULT OUT OF RANGE REFERENCE UNITS LAB UCOL Color,Urine Yellow Yellow LAB UAPP Appearance,Uri ne Clear Clear LAB USG Specificy [place],Urine 1.025 Normal 1.001-1.030 LAB UPH pH,Urine 7.0 Normal 5.0-9.0 LAB ULE Leukocyte Esterase,Urine Negative Negative LAB UNIT Nitrite,Urine Negative Negative LAB UPRO Protein,Urine Trace High Negative LAB UGL Glucose,Urine (UA) Normal Normal LAB UKET Ketones,Urine 1+ High Negative LAB UURO Urobilinogen,U rine 2 High Normal mg/dL LAB UBIL Bilirubin,Urin e Negative Negative LAB UBLD Occult Blood,Urine Negative Negative LAB URBC RBC,Urine 1 0-4 [HPF] LAB UWBC WBC,Urine 1 0-4 [HPF] LAB USQEPI Squamous Epithelial Cell,Urine 3 High 0-2 [HPF] LAB UBACT Bacteria,Urine None Seen None Seen LAB UHYALC Hyaline Casts,Urine None 0-8 LAB MUCUS Mucus,Urine Rare Performed By: #### URDS, ADD ONUAPLUS, UHCG #### [address] HCG,URINE Collected: 09/15/2024 3:20 PM Status: F Source: [facility] Order Comment: Name Collecti on Type:: Clean-Voided Midstream TYPE CODE TESTS RESULT OUT OF RANGE REFERENCE UNITS LAB UHCGQ HCG Qualitative,U rine Negative Result Comment: PERFORMED BY : [place] [address] PATHOLOGIST TECHNICAL SALES ADVISOR CARLOS KNAPP M.D. Performed By: #### URDS, ADD ONUAPLUS, CG #### [place] [id number] [facility] DRUG SCREEN,URINE Collected: 09/15/2024 3:20 PM Stat us: F Source: [facility] TYPE CODE TESTS RESULT OUT OF RANGE REFERENCE UNITS LAB URAMPS Amphetamine Screen,Urine Negative Negative LAB URBARBS Barbiturate Screen,Urine Negative Negative LAB URBENZS Benzodiazepines Screen,Urine Negative Negative LAB URCOCS Cocaine Screen,Urine Negative Negative LAB UROPIS Opiate Screen,Urine Negative Negative LAB URPCPS Phencyclidine Screen,Urine Negative Negative LAB URTHCS Cannabinoid Screen,Urine Negative Negative Result Comment: These are un confirmed results and should not be used for legal purposes. Drug Cut-Off Concentration: AMPH 1000 ng/mL OPAL 200 ng/mL AURELIANO 200 ng/mL COCM 300 ng/mL OP 300 ng/mL PCP 25 ng/mL THC 20 ng/mL PERFORMED BY: [place] [address] PATHOLOGIST TECHNICAL SALES ADVISOR CARLOS KNAPP M.D. Performed By: #### UREDUARDO, ADD ONUAPLUS, [facility] #### [place] [id number] [facility] COMPLETE BLOOD COUNT AUTO DIFF Collected: 09/15/2024 2:40 PM Status: F Source: F [facility] TYPE CODE TESTS RESULT OUT OF RANGE REFERENCE UNITS LAB WBC White Blood Count 8.6 Normal 3.8-11.6 10*3/uL LAB UNWBC Uncorrected WBC 8.6 Normal 3.8-11.6 10*3/uL LAB RBC Red Blood Count 3.71 Normal 3.60-5.00 10*6/u L LAB HGB Hemoglobin 12.1 Normal 11.8-15.4 g/dL LAB HCT Hematocrit 35.6 Normal 34.0-46.4 % LAB MCV Mean Corpuscular Volume 96.0 Normal 80-100 fL LAB MCH Mean Corpuscular Hemoglobin 32.5 Normal 24.7-34.3 pg LAB MCHC Mean Corpuscular HGB Conc 33.9 Normal 32.0-35.0 g/dL LAB RDW Red Cell Distribution Width 16.9 High 11.9-15.3 % LAB PLT Platelet Count 292 Normal 150-450 10*3/uL LAB MPV Mean Platelet Volume 9.2 Normal 6.3-10.7 fL LAB MDW Monocyte Distribution Width 17.55 Normal 0.00-20.00 % LAB NE% Neutrophils % (Auto) 62.8 . % LAB LY% Lymphocytes % (Auto) 26.3 . % LAB MO% Monocytes % (Auto) 7.8 . % LAB EO% Eosinophils % (Auto) 2.4 . % LAB BA% Basophils % (Auto) 0.7 . % LAB NRBC% NRBC% 0.1 Normal 0-0.5 /100{WBC } LAB NE# Neutrophils # (Auto) 5.4 Normal 1.8-7.7 10*3/uL LAB LY# Lymphocytes # (Auto) 2.3 Normal 1.00-4.8 10*3/uL LAB MO# Monocytes # (Auto) 0.7 Normal 0.0-0.8 10*3/uL LAB EO# Eosinophils # (Auto) 0.2 Normal 0.0-0.45 10*3/uL LAB BA# Basophils # (Auto) 0.1 Normal 0.0-0.2 10*3/uL Result Comment: PERFORMED BY : [place] [address] PATHOLOGIST TECHNICAL SALES ADVISOR CARLOS KNAPP M.D. Performed By: #### CBC #### [address] ETHYL ALCOHOL PROFILE Collected: 09/15/2024 2:40 PM Status: F Source: [facility] TYPE CODE TESTS RESULT OUT OF RANGE REFERENCE UNITS LAB ETHYALC Ethanol <10 mg/dL LAB ETHYLALC% Percent Ethanol Test not performed Result Comment: PERFORMED BY : [place] [address] PATHOLOGIST TECHNICAL SALES ADVISOR CARLOS KNAPP M.D. Performed By: #### MG, ESR, CMP, HS TROP, PTT, TSH3, T4F, ETOH, PT #### [place] [id number] [facility] TROPONIN I HIGH SENSITIVITY Collected: 09/15/2024 2:4 0 PM Status: F Source: [facility] TYPE CODE TESTS RESULT OUT OF RANGE REFERENCE UNITS LAB HS TROP Troponin I High Sensitivity 2.3 Normal 0.0-15.0 pg/mL Result Comment: PERFORMED BY : [place] [id number] PATHOLOGIST TECHNICAL SALES ADVISOR CARLOS KNAPP M.D. Performed By: #### MG, ESR, CMP, HS TROP, PTT, TSH3, T4F, ETOH, PT #### [place] [id number] [facility] PROTHROMBIN TIME INR Collected: 09/15/2024 2:40 PM S tatus: F Source: [facility] TYPE CODE TESTS RESULT OUT OF RANGE REFERENCE UNITS LAB R PT Prothrombin Time 10.4 Normal 9.0-12.9 s Result Comment: A hematocrit value greater than 55% may lead to inaccurate results in coagulation testing. Patients having hematocrit values >55% require a special collection tube for coagulation studies. Please contact the laboratory at [phone] for redraw instructions. LAB INR INR 0.9 Result Comment: INR Therapeu tic Range A) Pre- and Peroperative OAT started [...] valves: 3 - 4.5 Performed By: #### MG, ESR, CMP, HS TROP, PTT, TSH3, T4F, ETOH, PT #### [place] [id number] [place] PARTIAL THROMBOPLASTIN TIME Collected: 09/15/2024 2:4 0 PM Status: F Source: [facility] TYPE CODE TESTS RESULT OUT OF RANGE REFERENCE UNITS LAB PTT Partial Thromboplastin Time 28.0 Normal 25.1-36.5 s Result Comment: A hematocrit value greater than 55% may lead to inaccurate results in coagulation testing. Patients having hematocrit values >55% require a special collection tube for coagulation studies. Please contact the laboratory at [phone] for redraw instructions. PERFORMED BY: [place] [address] PATHOLOGIST TECHNICAL SALES ADVISOR CARLOS KNAPP M.D. Performed By: #### MG, ESR, CMP, HS TROP, PTT, TSH3, T4F, ETOH, PT #### [facility] [address] [place], [place] [id number] [facility] ERYTHROCYTE SEDIMENTATION RATE Collected: 09/15/2024 2:40 PM Status: F Source: [facility] TYPE CODE TESTS RESULT OUT OF RANGE REFERENCE UNITS LAB ESR Erythrocyte Sedimentation Rate 7 Normal 0-19 Result Comment: PERFORMED BY : [place] [address] PATHOLOGIST TECHNICAL SALES ADVISOR CARLOS KNAPP M.D. Performed By: #### MG, ESR, CMP, HS TROP, PTT, TSH3, T4F, ETOH, PT #### [facility] [address] [place], [place] [id number] [facility] COMPREHENSIVE METABOLIC PANEL Collected: 09/15/2024 2 :40 PM Status: F Source: [facility] TYPE CODE TESTS RESULT OUT OF RANGE REFERENCE UNITS LAB GLU Glucose 87 Normal 70-100 mg/dL Result Comment: Random Gluco se Reference Range is dependent on time and content of last meal. Glucose of more than 200 mg/dL in a nonstressed, ambulatory subject supports the diagnosis of Diabetes Mellitus. ADA recommended reference range LAB BUN Blood Urea Nitrogen 6 Low 7-25 mg/d L LAB CREATT Creatinine 0.57 Low 0.60-1.20 mg/dL LAB GFReNR Estimated GFR >60.0 mL/Min LAB NA Sodium 138 Normal 136-145 mmol/L LAB K Potassium 3.5 Normal 3.5-5.1 mmol/L LAB CL Chloride 107 Normal 98-107 mmol/L LAB CO2 Carbon Dioxide 26.2 Normal 21.0-31.0 mmol/L LAB GAP Anion Gap 8.3 Normal 6.0-15.0 meq/L LAB CA Calcium 9.0 Normal 8.6-10.3 mg/dL LAB TP Total Protein 6.4 Normal 6.4-8.9 g/dL LAB ALB Albumin Level 3.8 Normal 3.5-5.7 g/dL LAB GLOB Globulin 2.6 g/dL LAB AGRATIO Albumin/Globulin Ratio 1.5 LAB BILIT Bilirubin,Total 0.3 Normal 0.3-1.0 mg/dL LAB AST Aspartate Amino Transferase 16 Normal 13-39 U/L LAB ALT Alanine Aminotransferase 15 Normal 7-52 U/L LAB ALP Alkaline Phosphatase 53 Normal 34-104 U/L LAB CRCLPHA Creatinine Clr [facility] Pharm[facility] 157.80 Performed By: #### MG, ESR, CMP, HS TROP, PTT, TSH3, T4F, ETOH, PT #### [address] MAGNESIUM Collected: 2:40 PM Status: F Source: [facility] TYPE CODE TESTS RESULT OUT OF RANGE REFERENCE UNITS LAB MG Magnesium 1.7 Low 1.9-2.7 mg/dL Performed By: #### MG, ESR, CMP, HS TROP, PTT, TSH3, T4F, ETOH, PT #### [address] FREE T4 (FREE THYROXINE) Collected: 10/2024 2:40 PM Status: F Source: [facility] TYPE CODE TESTS RESULT OUT OF RANGE REFERENCE UNITS LAB T4F Free T4 (Free Thyroxine) 1.02 Normal 0.61-1.12 ng/dL Performed By: #### MG, ESR, CMP, HS TROP, PTT, TSH3, T4F, ETOH, PT #### [place] [id number] [facility] THYROID STIMULATING HORMONE Collected: 09/15/2024 2:4 0 PM Status: F Source: [facility] TYPE CODE TESTS RESULT OUT OF RANGE REFERENCE UNITS LAB TSH3 Thyroid Stimulating Hormone 0.73 Normal 0.45-5.33 u[iU]/mL Result Comment: PERFORMED BY : [place] [address] PATHOLOGIST TECHNICAL SALES ADVISOR CARLOS KNAPP M.D. Performed By: #### MG, ESR, CMP, HS TROP, PTT, TSH3, T4F, ETOH, PT #### [facility] [address] FAMILY MEDICINE OFFICE/CLINI C NOTE Observed: 09/15/2024 2:31 PM Status: F Source: [facility] Family Medicine Office/Clini c Note Chief Complaint New Pt HPI Staff Pt is a new pt. Presenting today to establish care. Establish Care: History: Any previous diagnosis: Iron deficiency anemia History of seeing any specialist: general surgery for lump on breast & cardiology When was your last doctors visit: 07/2024 Last provider: Mia PERRY Any recent labs: done @ [facility] ER 09/05/24 Health Maintenance UTD: Colonoscopy: NA Mammogram: 12/09/23 [facility] Pelvic/Pap: 12/05 following hysterectomy, states she was [...] her previous pcp in July, to the [facility] ED on 09/05/2024 and again on 09/11/2024. She reports she was at [facility] last week and they performed a bunch of laboratory testing that came back negative. She was seen at [facility] on 09/13/2024 for chest pain and this [...] unspecified site) Reviewed the discharge summary from [facility]- CMP, CRP, ESR, & CBC - WNL Reviewed the Echo from [facility] on the 13 of September- Normal results Awaiting additional records from providers f/u after consult with neurology Ordered: [facility] External Ambulatory Referral 2. Balance problem (R26.89: Other abnormalities of gait and mobility) Reviewed the discharge summary from [facility]- CMP, CRP, ESR, & CBC - WNL Reviewed the Echo from [facility] on the 13 of September- Normal results Awaiting additional records from providers f/u after consult with neurology Ordered: [facility] External Ambulatory Referral 3. Encounter to establish [...] management will be followed at subsequent visits. 7. Smoker (F17.200: Nicotine dependence, unspecified, uncomplicated) The standard range for ages 18 and older is >=18.5 and < 25 kg/m2. Your BMI today was above this range, this falls in the overweight to obese category and there are medical benefits to weight loss. We can offer counselling, referral, and/or medical support in addressing this problem. Your BMI and weight management will be followed at subsequent visits. 8. Overweight (BMI 25.0-29.9) (E66.3: Overweight) The standard [...] spent documenting, reviewing, and ordering tests was 40 minutes. Follow-up No qualifying data available Patient Education Myofascial Pain Syndrome and Fibromyalgia Muscle Pain, Adult Problem List/Past Medical History Ongoing [...] (06/02/2019), LEFT ELBOW ULNAR NERVE DECOMPRESSION (02/11/2019), c- section x3, Foot, Gastric bypass operation, History of [...] History Alcohol - Medium Risk, 07/01/2021 Beer. Daily., 09/15/2024 Current, Liquor, 3-5 times per week, 01/29/2022 Substance Abuse - Denies Substance Abuse, 02/11/2019 Never., 09/15/2024 Tobacco - High Risk, 02/07/2020 10 or more cigarettes (1/2 pack or more)/day in last 30 days Tobacco Use:. Cigarettes, Started age 11.0 Years. Household tobacco concerns: No. Yes, 09/15/2024 Family History Cardiac arrest: Mother and Grandparent. [...] Recorded influenza virus vaccine, inactivated 07/09/2020 Recorded Result Comment: Electronical ly Signed By: KURT BALBUENA CNP\.br\Date and Time Signed: 09/15/24 14:31 EST ECG 12 LEAD ECG Observed: 09/15/2024 1:31 PM Status: COMPLETED Source: [facility] Main [place] [address] [place] [address] Electrocardiograph Report Signed Patient: Shazia Chou MR#: [id number] : 1990 Acct:[id number] Age/Sex: 33 / F ADM Date: 09/15/24 Loc: ER Room: Type: [facility] ER Attending Dr: Ordering Provider: Sailaja Anderson [...] needs review Confirmed by Agus Hooper DO ([id number]) on 09/15/2024 3:29:15 PM Referred By: Electronically Signed By: Agus Hooper DO Transcribed By: MUS Signed By Agus Hooper DO 5 [id number] PATIENT EDUCATION Observed: 09/15/2024 9:53 AM Status: C Source: [facility] Patient Education Mental and Behavioral Health Myofascial Pain Syndrome and Fibromyalgia Myofascial pain syndrome and fibromyalgia are both pain disorders. You may feel this pain mainly in your muscles. ??? Myofascial pain syndrome: ? Always [...] medical history. You will also have a physical exam. In general: ??? Fibromyalgia is diagnosed if you have pain, fatigue, and other symptoms for more than 3 months, and symptoms cannot be explained by another condition. [...] these instructions at home: Medicines ??? Take geyt-sdt-fabpurw and prescription medicines only as told by your health care provider. ??? Ask your health care provider if the medicine prescribed to you: ? Requires you to avoid driving or using machinery. ? Can cause constipation. You may need to take these actions to prevent or treat constipation: ? Drink enough fluid to keep your urine pale yellow. ? Take andl-hjb-rwpwjpw or prescription medicines. ? Eat foods that [...] getting enough sleep. ??? Do not use any products that contain nicotine or tobacco. These products include cigarettes, chewing tobacco, and vaping devices, such as e-cigarettes. If you need help quitting, ask your health care provider. General instructions ??? Talk to your health care provider about complementary treatments, such as acupuncture or massage. ??? Do not do activities that stress or strain your muscles. This includes repetitive motions and heavy lifting. ??? Keep all follow-up visits. This is important. Where to find support ??? Consider joining a support group with others who are diagnosed with this condition. ??? National Fibromyalgia Association: fmaware.org Where to find more information ??? U.S. Pain Foundation: uspainfoundation.org Contact a health care provider if: ??? You have new symptoms. ??? Your symptoms get worse or your pain is severe. ??? You have side effects from your medicines. ??? You have trouble sleeping. ??? Your condition is causing depression or anxiety. Get help right away if: ??? You have thoughts of hurting yourself or others. Get help right away if you feel like you may hurt yourself or others, or have thoughts about taking your own life. Go to your nearest emergency room or: ??? Call 911. ??? Call the National Suicide Prevention Lifeline at or 052. This is open 24 hours a day. ??? Text the Crisis Text Line at 679230. This information is not intended to replace advice given to you by your health care provider. Make sure you discuss any questions you have with your health care provider. Document Revised: 06/08/2023 Document Reviewed: 08/01/2022 [employer] Patient Education ? 2023 [employer] Muscle Pain, Adult Muscle pain, also called myalgia, is a condition in which a person has pain in one or more muscles in the body. The pain may be mild, moderate, or severe. It may feel sharp, achy, or burning. In most cases, the pain lasts only a short time and goes away on its own. It is normal to feel some muscle pain after you start a new exercise program. Muscles that have not been used a lot will be sore at first. What are the causes? You may have muscle pain when you use your muscles in a new or different way after not having used them for some time. Muscle pain can also be caused by overuse or by stretching a muscle beyond its normal length (muscle strain). You may be more likely to have muscle pain if you are not in shape. Other causes may include: ??? Injury or bruising. ??? Infectious diseases. These include diseases caused by viruses, such as the flu (influenza). ??? Fibromyalgia. This is a long-term (chronic) condition that causes muscle tenderness, tiredness (fatigue), and headache. ??? Autoimmune or rheumatologic diseases. These are conditions, such as lupus, that cause the body's defense system (immune system) to attack areas in the body. ??? Certain medicines. These include DELMER inhibitors and statins. What are the signs or symptoms? The main symptom is sore or painful muscles. Your muscles may be sore when you do activities and when you stretch. You may also have slight swelling. How is this diagnosed? Muscle pain is diagnosed with a physical exam. Your health care provider will ask questions about your pain and when it began. ??? If you have not had muscle pain for very long, your provider may want to wait before doing much testing. ??? If your muscle pain has lasted a long time, tests may be done right away. ??? In some cases, you may need tests to rule out other conditions and diseases. How is this treated? Treatment for muscle pain depends on the cause. Home care is usually enough to relieve the pain. Your provider may also prescribe NSAIDs, such as ibuprofen. Follow these instructions at home: Medicines ??? Take vwue-tyx-vhvguix and prescription medicines only as told by your provider. ??? Ask your health care provider if the medicine prescribed to you requires you to avoid driving or using machinery. Managing pain, swelling, and discomfort ??? If told, put ice on the painful area for the first 2 days of soreness. ? Put ice in a plastic bag. ? Place a towel between your skin and the bag. ? Leave the ice on for 20 minutes, 2?3 times a day. ? If your skin turns bright red, remove the ice right away to prevent skin damage. The risk of damage is higher if you cannot feel pain, heat, or cold. ??? For the first 2 days of muscle soreness, or if there is swelling: ? Do not soak in hot baths. ? Do not use a hot tub, steam room, sauna, heating pad, or other heat source. ??? After 2-3 days, you may switch between putting ice and heat on the area. If told, apply heat to the affected area as often as told by your provider. Use the heat source that your recommends, such as a moist heat pack or a heating pad. ? Place a towel between your skin and the heat source. ? Leave the heat on for 20?30 minutes. ??? If your skin turns bright red, remove the ice or heat right away to prevent skin damage. The risk of damage is higher if you cannot feel pain, heat, or cold. ??? If you have an injury, raise (elevate) the injured area above the level of your heart while you are sitting or lying down. Activity ??? If your muscle pain is caused by overuse: ? Slow down your activities until the pain goes away. ? Do regular, gentle exercises if you are not normally active. ? Warm up before you exercise. Stretch before and after you exercise. This can help lower the risk of muscle pain. ??? Do not keep working out if the pain is severe. Severe pain could mean that you have injured a muscle. ??? You may have to avoid lifting. Ask your provider how much you can safely lift. ??? Return to your normal activities as told by your provider. Ask your provider what activities are safe for you. General instructions ??? Do not use any products that contain nicotine or tobacco. These products include cigarettes, chewing tobacco, and vaping devices, such as e-cigarettes. If you need help quitting, ask your provider. Contact a health care provider if: ??? Your muscle pain gets worse, and medicines do not help. ??? The muscle pain lasts longer than 3 days. ??? You have a rash or fever. ??? You have muscle pain after a tick bite. ??? You have muscle pain when you work out, even though you are in good shape. ??? You have redness, soreness, or swelling. ??? You have muscle pain after you start a new medicine or change the dose of a medicine. Get help right away if: ??? You have trouble breathing. ??? You have trouble swallowing. ??? You have muscle pain along with a stiff neck, fever, and vomiting. ??? You have severe muscle weakness, or you cannot move part of your body. ??? You are urinating less, or you have dark, bloody, or discolored urine. ??? You have redness or swelling at the site of the muscle pain. These symptoms may be an emergency. Get help right away. Call 911. ??? Do not wait to see if the symptoms will go away. ??? Do not drive yourself to the hospital. This information is not intended to replace advice given to you by your health care provider. Make sure you discuss any questions you have with your health care provider. Document Revised: 04/10/2023 Document Reviewed: 04/10/2023 ElseFreshGrade Patient Education ? 2023 InhibOx. TRANSTHORACIC ECHO (TTE) COMPLETE Observed: 09/13/2024 9:59 AM Status: F Source: [facility] [address], [address], [place] [address] TRANSTHORACIC ECHOCARDIOGRAM REPORT Patient Name: SHAZIA JOSÉ ANTONIO Reading Physician: [id number] Adithya Boswell MD, [facility] Study Date: 09/13/2024 Ordering Provider: [id number] YOVANA HOWARD MRN/PID: [id number] Fellow: Nurse: Date of /Age: 4 1990 / 33 years Big Data Solutions Architect: Julissa Licona RDCS, T Gender Assigned at F Additional Staff: : Height: 170.18 cm Admit Date: Weight: 85.28 kg Admission Status: BSA / BMI: 1.97 m2 / 29.45 Department Location: [facility] kg/m2 Heart [facility] Blood Pressure: 118 /76 mmHg Study Type: TRANSTHORACIC ECHO (TTE) COMPLETE Diagnosis/ICD: Angina pectoris, unspecified-I20.9; Shortness of breath-R06.02; Palpitations-R00.2; Family history of ischemic heart disease and other diseases of the circulatory system-Z82.49; Essential (primary) hypertension-I10 Indication: Tobacco Abuse, Anxiety/Depression, Pseudotumor Cerebri, ETOH Abuse, Bipolar Disorder, History of Gastric Bypass CPT Codes: Echo Complete w Full Doppler-19116 Study Detail: The following Echo studies were [...] 0.7 m/s (0.6-0.9m/s) PV Max P.1 mmHg [id number] Adithya Boswell MD, [facility] Electronically signed on 09/13/2024 at 4:00:19 PM Final PROGRESS Observed: 08/25/2024 2:56 PM Status: COMPLETED [id number] Author: ANNE-MARIE TRINIDAD RN Service: ? Author Type: Registered Nurse Type: Progress Notes Filed: 08/25/2024 15:00 Note Text: ACM SUE RN Patient identified by name and date of . Reason for review or outreach: Chart Review Sue Priority Emergency Department Utilization REQUESTED ACTION/FYI: None [...] with patient: No, Chart review only. Signature: Anne-Marie Trinidad RN CNPTOUTREACH Observed: 08/25/2024 12:00 AM Status: COMPLETED Source: [facility] Patient Outreach ([facility]) SHAZIA CHOU ([id number]) 1990 F Date Time Provider Department 08/25/24 ANNE-MARIE TRINIDAD [facility] During your visit today, we recorded the following information about you: Anne-Marie Trinidad RN 08/25/2024 3:00 PM Signed [facility] SUE RN Patient identified by name and date of . Reason for review or outreach: Chart Review Sue Priority Emergency Department Utilization REQUESTED ACTION/FYI: None [...] with patient: No, Chart review only. Signature: Anne-Marie Trinidad RN Allergies As of Date: 08/25/2024 Noted Allergy Reaction ARIPIPRAZOLE 08/19/2022 1 - Mental Status Change 14 - Other: See Comments 16 - Unknown BUPROPION 07/16/2021 16 - Unknown COCONUT 11/20/2022 7 - Swelling Date Reviewed: 07/25/2024 Reviewed by: Melissa Hester LPN - Fully Assessed Reason for Visit: CARMELINA LAN RN [1071] Cmt: ED Utilization Review per request of [...] mg by mouth daily at bedtime. - inpltcubhfvv-xsb-tttb-FA-vit K (BARIATRIC MULTIVITAMINS) 45 mg iron- 800 [...] Panic disorder [F41.0] 03/08/2024 Encounter Status:Closed by ANNE-MARIE TRINIDAD on 08/25/24 FERRITIN Collected: 08/18/2024 8:49 AM Status: F Source: [facility] TYPE CODE TESTS RESULT OUT OF RANGE REFERENCE UNITS LAB 2276-4([facility]) FERRITIN:MCNC :PT:SER/PLAS: QN: 10 Low 11-307 ng/mL Performed By: #### [id number] # ### [facility] [address] [place] [address] EBV ANTIBODY PROFILE Collected: 024 8:49 AM Status: F Source: [facility] TYPE CODE TESTS RESULT OUT OF RANGE REFERENCE UNITS LAB 5159-9([facility]) SISI TADEO VIRUS CAPSID AB.IGM:ACNC :PT:SER:QN: IA <36.0 Unknown 0.0-35.9 unit/mL Result Comment: Negative <36 .0 Equivocal 36.0 - 43.9 Positive >43.9 LAB 5157-3([facility]) SISI TADEO VIRUS CAPSID AB.IGG:ACNC :PT:SER:QN: IA 154.0 High 0.0-17.9 unit/mL Result Comment: Negative <18 .0 Equivocal 18.0 - 21.9 Positive >21.9 LAB 05305-7([facility]) SISI TADEO VIRUS NUCLEAR AB.IGG:ACNC :PT:SER:QN: IA 299.0 High 0.0-17.9 unit/mL Result Comment: Negative <18 .0 Equivocal 18.0 - 21.9 Positive >21.9 LAB 8251-1([facility]) SERVICE COMMENT:IMP :PT:XXX:NOM : Comment Unknown Result Comment: EBV Interpre tation Chart Bose: Antibody Present + Antibody Absent [...] never develop antibodies to EBNA. Performed at: [facility] [id number] PhD Cordelia Madera Performed By: #### [id number] #### [facility] [address] [place] [address] IRON Collected: 4 8:49 AM Status: F Source: [facility] TYPE CODE TESTS RESULT OUT OF RANGE REFERENCE UNITS LAB 2498-4([facility]) IRON:MCNC:PT :SER/PLAS:QN : 55 Normal 35-153 microgram/ dL Performed By: #### [id number] # ### [facility] [address] [place] [address] IRON SATURATION Collected: 4 8:49 AM Status: F Source: [facility] TYPE CODE TESTS RESULT OUT OF RANGE REFERENCE UNITS LAB 2502-3([facility]) IRON SATURATION:M FR:PT:SER/PL :QN: 13 Low 20-50 % LAB 2500-7([facility]) IRON BINDING CAPACITY:MCN C:PT:SER/AIMEE S:QN: 414 High 250-400 microgram/ dL Performed By: #### [id number] # ### [facility] [address] [place] [address] EBV EARLY AB Collected: 8:49 AM Status: F Source: [facility] TYPE CODE TESTS RESULT OUT OF RANGE REFERENCE UNITS LAB 72811-2([facility]) SISI TADEO VIRUS EARLY DIFFUSE AB.IGG:ACNC: PT:SER:QN: <9.0 Unknown 0.0-8.9 unit/mL Result Comment: Negative < 9 .0 Equivocal 9.0 - 10.9 Positive >10.9 Performed at: [address] [id number] PhD Cordelia Madera Performed By: #### [id number] #### [facility] [address] [place] [address] TRANSFERRIN Collected: 8:49 AM Status: F Source: [facility] Order Comment: Transferrin o rder added by Discern Rule: gl_ftmc_add_iron_trans . TYPE CODE TESTS RESULT OUT OF RANGE REFERENCE UNITS LAB 34960816([facility]) Transferrin 296 Normal 200-370 mg/d L Performed By: #### [id number] # ### [facility] [address] [place] [address] LAB MISCELLANEOUS-LC Collected: 08/18/2024 8:49 AM S tatus: F Source: [facility] TYPE CODE TESTS RESULT OUT OF RANGE REFERENCE UNITS LAB CD:[id number] ([facility]) Lab Miscellaneous COMMENT Unknown Result Comment: Test Ordered : [id number] Hemoglobin A1c Hemoglobin A1c 5.6 % Reference Range: 4.8-5.6 Prediabetes: 5.7 - 6.4 Diabetes: >6.4 Glycemic control for adults with diabetes: <7.0 Performed at: [facility] [id number] PhD Cordelia Madera LAB CD:[id number] ([facility]) Test Code 367964 Unknown LAB 11244726(LOIN C) Test Name a1C Unknown Performed By: #### [id number] #### [facility] [address] [place] [address], [place] [address] 25(OH)D3 SERPL-MCNC Collected: 07/26/20 8:35 AM Status: F Source: [facility] Comment: Specimen Type : BLOOD SPECIMEN Ordering Facility: [facility] Address: [address] [place] [address] TYPE CODE TESTS RESULT OUT OF RANGE REFERENCE UNITS LAB 1990-([facility]) 25(OH)D3 SerPl-mCnc 41.9 31.0-80.0 ng/mL Result Comment: Classificati on of 25 [place] Vitamin D status: Deficiency/Insufficiency: < or = 30 ng/ml. Sufficiency/Optimal Levels: 31-80 ng/mL Toxicity: > 100 ng/mL. Test performed by chemiluminescent immunoassay. Performed By: #### 1990-11 ## ## [facility] CLIA [id number] [address] [place] [address] [place] COMP METAB 2000 PNL SERPL Collected: 8:35 AM Status: F Source: [facility] Comment: Specimen Type : BLOOD SPECIMEN Ordering Facility: [facility] Address: [address] [place] [address] TYPE CODE TESTS RESULT OUT OF RANGE REFERENCE UNITS LAB 2885-2(LOINC) Prot SerPl-mCnc 7.3 6.3-8.0 g/dL LAB 1751-7(LOINC) Albumin SerPl-mCnc 4.7 3.9-4.9 g/dL LAB 98882-5(LOINC) Calcium SerPl-mCnc 9.6 8.5-10.2 mg/dL LAB 1975-2(LOINC) Bilirub SerPl-mCnc 0.2 0.2-1.3 mg/dL LAB 6768-6(LOINC) ALP SerPl-cCnc 64 34-123 U/L LAB 1920-8(LOINC) AST SerPl-cCnc 20 13-35 U/L LAB 1742-6(LOINC) ALT SerPl-cCnc 13 7-38 U/L LAB 2345-7(LOINC) Glucose SerPl-mCnc 91 74-99 mg/dL Result Comment: The [place] Diabetes Association (ADA) provides guidance for cutoff [...] Standards of Medical Care in Diabetes 2016, [place] [employer] Association. Diabetes Care. 2016.39(Suppl 1). LAB 3094-0(LOINC) BUN SerPl-mCnc 9 7-21 mg/ dL LAB 2160-0(LOINC) Creat SerPl-mCnc 0.69 0.58-0.96 mg/dL LAB 2951-2(LOINC) Sodium SerPl-sCnc 139 136-144 mmol/L LAB 2823-3(LOINC) Potassium SerPl-sCnc 4.3 3.7-5.1 mmol/L LAB 2075-0(LOINC) Chloride SerPl-sCnc 106 98-107 mmol/L LAB 2028-9(LOINC) CO2 SerPl-sCnc 22 22-30 mmo l/L LAB 58398-7(LOINC) Anion Gap SerPl-sCnc 11 8-15 mmol/L LAB 61958-5(LOINC) Creatinine + eGFR Pnl SerPlBld 116 >=60 mL/min/1 .73m??? Result Comment: Estimated Gl omerular Filtration Rate (eGFR) is calculated using the 2020 CKD-EPI creatinine equation. This equation utilizes serum creatinine, sex, and age as parameters. The creatinine assay has traceable calibration to isotope dilution-mass spectrometry. Refer to KDIGO guidelines for clinical interpretation. In patients with unstable renal function, e.g. those with acute kidney injury, the eGFR may not accurately reflect actual GFR. Performed By: #### 27731-7 # ### [facility] CLIA [id number] [address] [place] [address] IRON+TIBC PNL SERPL Collected: 07/26/2024 8:[address] atus: F Source: [facility] Comment: Specimen Type : BLOOD SPECIMEN Ordering Facility: [facility] Address: [address] [place] [address] TYPE CODE TESTS RESULT OUT OF RANGE REFERENCE UNITS LAB 2498-4(LOINC) Iron SerPl-mCnc 114 41-186 ug/dL LAB 2500-7(LOINC) TIBC SerPl-mCnc 360 232-386 ug/dL LAB 16703-8(LOINC) Iron/TIBC SerPl-sRto 31.7 15.0-57.0 % Performed By: #### 2276-4, 5 0-8, 8 #### [facility] CLIA [id number] [address] [place] [address] [place] PTH-INTACT SERPL-MCNC Collected: 07/26/2024 8:35 AM Status: F Source: [facility] Comment: Specimen Type : BLOOD SPECIMEN Ordering Facility: [facility] Address: [address] [place] [address] TYPE CODE TESTS RESULT OUT OF RANGE REFERENCE UNITS LAB 2731-8(LOINC) PTH-Intact SerPl-mCnc 17 15-65 pg/mL Performed By: #### 2276-4, 5 189-8, 2731-04 #### [facility] CLIA [id number] [address] [place] [address] [place] FERRITIN SERPL-MCNC Collected: 07/26/20 8:35 AM Status: F Source: [facility] Comment: Specimen Type : BLOOD SPECIMEN Ordering Facility: [facility] Address: [address] [place] [address] TYPE CODE TESTS RESULT OUT OF RANGE REFERENCE UNITS LAB 2276-4(LOINC) Ferritin SerPl-mCnc 17.5 14.7-205.1 ng/mL Performed By: #### 2276-4, 5 0-8, 2731-04 #### [facility] CLIA [id number] [address] [place] [address] [place] CBC W AUTO DIFF BLD Collected: 07/26/2024 8:[address] atus: F Source: [facility] Order Comment: Specimen Type : BLOOD SPECIMEN Ordering Facility: [facility] Address: [facility] [place] [address] TYPE CODE TESTS RESULT OUT OF RANGE REFERENCE UNITS LAB 6690-2([facility]) WBC # Bld Auto 12.36 High 3.70-11.00 k/uL LAB 789-8([facility]) RBC # Bld Auto 4.14 3.90-5.20 m/ uL LAB 718-7([facility]) Hgb Bld-mCnc 13.0 11.5-15.5 g/dL LAB 4544-3([facility]) Hct VFr Bld Auto 38.2 36.0-46.0 % LAB 787-2([facility]) MCV RBC Auto 92.3 80.0-100.0 fL LAB 785-6([facility]) MCH RBC Qn Auto 31.4 26.0-34.0 p g LAB 786-4([facility]) MCHC RBC Auto-mCnc 34.0 30.5-36.0 g/dL LAB 61719-8([facility]) RDW RBC-Rto 16.4 High 11.5-15.0 % LAB 777-3([facility]) Platelet # Bld Auto 302 150-400 k/uL LAB 59303-0([facility]) PMV Bld Auto 10.8 9.0-12.7 fL LAB 770-8([facility]) Neutrophils/leuk NFr Bld Auto 77.6 % LAB 751-8([facility]) Neutrophils # Bld Auto 9.58 High 1.45-7.50 k/uL LAB 736-9([facility]) Lymphocytes/leuk NFr Bld Auto 14.4 % LAB 731-0([facility]) Lymphocytes # Bld Auto 1.78 1.00-4.00 k/uL LAB 5905-5([facility]) Monocytes/leuk NFr Bld Auto 5.0 % LAB 742-7([facility]) Monocytes # Bld Auto 0.62 <0.87 k/uL LAB 713-8([facility]) Eosinophil/leuk NFr Bld Auto 2.3 % LAB 711-2([facility]) Eosinophil # Bld Auto 0.29 <0.46 k/uL LAB 706-2(LOINC) Basophils/leuk NFr Bld Auto 0.4 % LAB 704-7(LOINC) Basophils # Bld Auto 0.05 <0.11 k/uL LAB 36493-9(LOINC) Imm Granulocytes/keven k NFr Bld Auto 0.3 % LAB 90790-0(LOINC) Imm Granulocytes # Bld Auto 0.04 <0.10 k/uL LAB 23715-3(LOINC) nRBC/100 WBC Bld-Rto 0.0 /100 WBC LAB 771-6(LOINC) nRBC # Bld Auto <0.01 <0.01 k/u L LAB 20557-4([facility]) Differential method Bld Auto Performed By: #### 48389-7 # ### [facility] CLIA [id number] [address] [place] [address] PROGRESS Observed: 07/25/2024 3:07 PM Status: COMPLETED Source: [facility] HNO ID: [id number] Author: MADALYN CARSON, DO Service: ? Author Type: Physician Type: Progress Notes Filed: 07/25/2024 16:57 Note Text: [facility] Family Medicine Visit Assessment and Plan [...] TIBC - COMPLETE BLOOD COUNT AND DIFFERENTIAL Madalyn CarsonDO 07/25/2024 Subjective This is a 33 [...] appointment. She is scheduled to see a any commodity sales deliverer at for this. ROS: As per HPI. [...] and Affect: Mood normal. Behavior: Behavior normal. CNOV Observed: 07/25/2024 3:00 PM Status: COMPLETED Source: [facility] Office Visit ([facility]) SHAZIA CHOU ([id number]) 1990 F Date Time Provider Department 07/25/24 3:00 PM MADALYN CARSON [facility] During your visit today, we recorded the following information about you: Pulse Blood pressure Weight 67/minute 122/72 83.8 kg Madalyn Carson DO 07/25/2024 4:57 PM Signed [employer] [...] TIBC - COMPLETE BLOOD COUNT AND DIFFERENTIAL Madalyn HenriquezDO aby 07/25/2024 Subjective This is a 33 year [...] appointment. She is scheduled to see a any commodity sales deliverer at for this. ROS: As per HPI. [...] LPN - Fully Assessed Reason for Visit: ER F/U [41] Cmt: Feels same Primary Visit Diagnosis:Bipolar affective disorder in remission (HCC) [F31.70] Other Visit Diagnoses:Borderline personality disorder (HCC) [F60.3] Anxiety disorder, unspecified type [F41.9] Chest pain, unspecified type [R07.9] Iron deficiency anemia, unspecified iron deficiency anemia type [D50.9] Order(s):lamoTRIgine (LAMICTAL) 25 mg tabletTake 2 tablets by mouth two times a day.Disp: 120 tabletRfl: 0 ondansetron orally disintegrating (ZOFRAN ODT) 4 mg disintegrating tabletTake 1 tablet by mouth every 8 hours as needed for nausea/vomiting.Disp: 30 tabletRfl: 0 FERRITIN [SQFERR] Order #: [id number] FUTURE IRON AND TIBC [SQIRON] Order #: [id number] FUTURE COMPLETE BLOOD COUNT AND DIFFERENTIAL [SQCBCDIF] Order #: [id number] FUTURE Prescriptions as of 07/25/2024 - lamoTRIgine (LAMICTAL) 25 mg tablet Take [...] mg by mouth daily at bedtime. - czjhjhcftlnp-dok-unir-FA-vit K (BARIATRIC MULTIVITAMINS) 45 mg iron- 800 mcg-120 mcg cap Take by mouth. Problem List As Of Date 07/25/2024 Noted Resolved Poor growth, affecting management of [...] hysterectomy [Z90.710] 03/08/2024 Panic disorder [F41.0] 03/08/2024 Prescriptions ordered this encounter Disp Refills Start End LAMOTRIGINE 25 MG TABLET 120 * 0 07/25/2024 08/24/2024 Route: ORAL Sig: Take 2 tablets by mouth two times a day. ONDANSETRON 4 MG DISINTEGRATING TABL* 30 t* 0 07/25/2024 Route: ORAL Sig: Take 1 tablet by mouth every 8 hours as needed for nausea/vomiting. Medications Discontinued During This Encounter Prescriptions - lamoTRIgine (LAMICTAL) 25 mg tablet (Discontinued) Take 75 mg by mouth once daily. Level of Service: OFFICE/OUTPATIENT ESTABLISHED MOD [facility] 30 MIN [20303] Additional E/M codes: VISIT CPLX INHERENT EANDM ASSOC WITH MED * Disposition: Return in about 4 weeks (around 08/22/2024). Follow-up and Disposition History for Encounter Date Provider Department Center 07/25/2024 [id number], JACOB [facility] Encounter Status:Closed by MADALYN CARSON on 07/25/24 CNPN Observed: 07/13/2024 12:00 AM Status: COMPLETED Source: [facility] Telephone (RADMN) JASSHAZIA MALDONADO ([id number]) 1990 F Date Time Provider Department 07/13/24 HAWA WALLACE During your visit today, we recorded the following information about you: Allergies As of Date: 07/13/2024 Noted Allergy Reaction ARIPIPRAZOLE 08/19/2022 1 - Mental Status Change 14 - Other: See Comments 16 - Unknown BUPROPION 07/16/2021 16 - Unknown COCONUT 11/20/2022 7 - Swelling Date Reviewed: 07/04/2024 Reviewed by: Miladys Matos MA - Fully Assessed Reason for Visit: [...] mg by mouth daily at bedtime. - zwszznqlgpah-api-wkpp-FA-vit K (BARIATRIC MULTIVITAMINS) 45 mg iron- 800 [...] Panic disorder [F41.0] 03/08/2024 Encounter Status:Closed by HAWA WALLACE on 07/13/24 PT ED Observed: 07/11/2024 9:29 AM Status: COMPLETED Source: [facility] HNO ID: [id number] Author: GENTRY LINDSEY RT(R) Service: Radiology Author Type: Byproducts Extractor Type: Patient Education Filed: 07/11/2024 09:29 Note Text: Post procedure written instructions were given to patient. LINDA LEY LT Observed: 07/11/2024 9:17 AM Status: C Source: [facility] * * *Final Report* * * * * * SEE BOTTOM OF REPORT FOR ADDENDED TEXT * * * DATE OF EXAM: Jul 11 2024 9:17AM [facility] 0628 - LINDA LEY LT / PROCEDURE REASON: Abnormal mammogram of left breast * * * * Physician Interpretation * * * * RESULT: [facility] [address] [place] [id number] - - - - - - - [...] Alexandra Son M.D. Electronically signed on: 07/11/2024 Carry Out Clerk: SERGIO Transcribe Date/Time: Jul 11 2024 8:53A Dictated by: ALEXANDRA SON MD This examination was interpreted and the report reviewed and electronically signed by: ALEXANDRA SON MD on Jul 11 2024 9:45AM EST This document has been addended by: ALEXANDRA SON MD on Jul 13 2024 3:56PM EST [id number] LINDA US BIOPSY BREAST LT Observed: 2023 9:15 AM Status: C Source: [facility] * * *Final Report* * * * * * SEE BOTTOM OF REPORT FOR ADDENDED TEXT * * * DATE OF EXAM: Jul 11 2024 9:15AM [facility]W 0597 - [facility] US BIOPSY BREAST LT / PROCEDURE REASON: Abnormal mammogram of left breast * * * * Physician Interpretation * * * * RESULT: [facility] [address] [place] [address] - - - - - - - [...] Alexandra Son M.D. Electronically signed on: 07/11/2024 Carry Out Clerk: SERGIO Transcribe Date/Time: Jul 11 2024 8:52A Dictated by: ALEXANDRA SON MD This examination was interpreted and the report reviewed and electronically signed by: ALEXANDRA SON MD on Jul 11 2024 9:45AM EST This document has been addended by: ALEXANDRA SON MD on Jul 13 2024 3:56PM EST [id number] SURGICAL PATHOLOGY Collected: 9:01 AM Status: F Source: [facility] Order Comment: Specimen Type : TISSUE SPECIMEN Ordering Facility: [facility] Address: [address] [place] [address] TYPE CODE TESTS RESULT OUT OF RANGE REFERENCE UNITS PATHOLOGY [id number] CASE REPORT Result Comment: Surgical Pat hology Report Case: [id number] Authorizing Provider: Alexandra Son Collected: 07/11/2024 09:01 AM MD Nicole Ordering Location: Mammography Received: 07/11/2024 09:37 AM Pathologist: Mia Erwin MD Specimen: Breast, Left, Core Biopsy, Asymmetry 1:00 15 cm FN Ribbon clip PATHOLOGY [id number] FINAL DIAGNOSIS Result Comment: Left breast, 1:00, asymmetry, 15 cm FN, ribbon clip, needle core biopsy: - 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 JR 07/12/2024 OLOGY [id number] GROSS DESCRIPTION Result Comment: A. Breast, L eft, Core Biopsy Received in formalin labeled as [...] in one cassette. Gross examination performed at [facility], [address] [place], [place] [id number] [facility] 07/11/2024 5:14 PM PATHOLOGY [facility] FINAL PERFORMING LAB Result Comment: Diagnostic i nterpretation performed at [facility], [address] [place] [address] CLIA# [id number] Education Rep: Jarred Canales M.D. Performed By: #### S #### [facility] IA [id number] [address] [place] [address] STATES OF [facility] [employer] BREAST [employer] LT Observed: 12:12 PM Status: F Source: [facility] * * *Final Report* * * DATE OF EXAM: Jul 04 2024 12:12PM SSW 0593 - [employer] BREAST v2tel LT / PROCEDURE REASON: Mass of upper [...] ultrasound of the indicated area was performed. Jimenez scale images were saved. ULTRASOUND FINDINGS: The [...] further evaluation as clinical discretion. Patient saw Cate Tyler CNP today. BI-RADS Category 4A: Suspicious [...] patient has dense breast tissue. Interpreting Radiologist: Mary Lou Asif M.D. Electronically signed on: 07/05/2024 Carry Out Clerk: [facility] Transcribe Date/Time: Jul 05 2024 11:53A Dictated by: MARY LOU ASIF MD This examination was interpreted and the report reviewed and electronically signed by: MARY LOU ASIF MD on Jul 05 2024 11:58AM EST [id number] LINDA ZAMBRANO Observed: 07/04/2024 11:59 AM Status: F Source: [facility] * * *Final Report* * * DATE OF EXAM: Jul 04 2024 11:59AM [facility] 0627 - LINDA MELVIN [place] AV JUAN MANUEL / PROCEDURE REASON: Mass of upper outer [...] ultrasound of the indicated area was performed. Jimenez scale images were saved. ULTRASOUND FINDINGS: The [...] further evaluation as clinical discretion. Patient saw Cate Tyler CNP today. BI-RADS Category 4A: Suspicious [...] patient has dense breast tissue. Interpreting Radiologist: Mary Lou Asif M.D. Electronically signed on: 07/05/2024 Carry Out Clerk: WILLIAM Transcribe Date/Time: Jul 05 2024 11:53A Dictated by: MARY LOU ASIF MD This examination was interpreted and the report reviewed and electronically signed by: MARY LOU ASIF MD on Jul 05 2024 11:58AM EST [id number] PROGRESS Observed: 07/04/2024 11:30 AM Status: COMPLETED Source: [facility] HNO ID: [id number] Author: OMAR DONOHUE Mammo Dante Service: ? Author Type: Byproducts Extractor Type: Progress Notes Filed: 07/04/2024 12:32 Note [...] PATIENT PRESENTS WITH AN IMPLANTABLE OR ATTACHED DIVERSIFIED CROPS II FARMWORKER: No RADIOLOGY DEPARTMENT: Mammography PERIPHERAL IV DATA: Not applicable SIGNED BY: Omar Donohue Network18[employer] Dante July 04, 2024 12:32 PM CNOV Observed: 07/04/2024 11:00 AM Status: COMPLETED Source: [facility] Office Visit ([facility]) SHAZIA CHOU ([id number]) 1990 F Date Time Provider Department 07/04/24 11:00 AM CATE TYLER [facility] During your visit today, we recorded the following information about you: Weight Height 83.9 kg 1.702 m Cate Tyler APRN.CNP 07/06/2024 8:25 AM Signed MEDICAL BREAST PATIENT NAME: Shazia Chou July 04, 2024 REFERRAL: She is self referred for an opinion regarding regarding LEFT breast painful lump and bloody nipple discharge HISTORY of PRESENT ILLNESS: Shazia Chou is a 33 year old premenopausal female who presents to the [facility] today for evaluation [...] Test performed by chemiluminescent immunoassay. Performed at [facility],[address] [place] [address] She takes a multivitamin daily. BMD: No PERSONAL BREAST HISTORY: Breast biopsy: No Breast cysts: No Breast surgery: No Breast cancer: No CANCER SURVEILLANCE: Mammograms: Date in [facility]: 12/09/23; results - Negative-Left breast only Breast MRI: Date in [facility]: 06/10/22; results - Negative Colonoscopy: [...] discussed with the Patient or Patient's Authorized Utility Worker. As applicable, any other physician, advance practice provider, medical student, or other health professional student that will be observing or involved in the sensitive examination for educational or training purposes was discussed with the Patient or Authorized Utility Worker. The Patient or Authorized Utility Worker has agreed to proceed with the sensitive examination. (Sensitive examination includes inspection and/or palpation of the breasts, pelvis, prostate and anorectal regions) PHYSICAL EXAM: Ht 170.2 cm (5' 7 ) Wt 83.9 kg (185 lb) LMP 10/23/2022 BMI 28.98 kg/m? General: well-nourished, healthy, white, female, alert and [...] further evaluation as clinical discretion. Patient saw Cate Tyler CNP today. BI-RADS Category 4A: Suspicious [...] which included preparing to see the patient, keft-fe-vpfi patient care, completing clinical documentation, obtaining and/or reviewing separately obtained history, performing a medically appropriate examination, counseling and educating the patient/family/caregiver, ordering medications, tests, or procedures, and communicating results to the patient/family/caregiver. Cate Tyler APRN.IRENE Medical Breast Specialist July 04, 2024 CC: Madalyn Carson [address] [place] [address] Miladys Matos MA 07/04/2024 10:52 AM Signed Thank you for trusting me with your breast care today. Please call or MyChart in 2-3 months with an update in your symptoms. With any changes in symptoms evaluated today such as worsening, pain, skin redness, warmth, drainage, palpable mass or other breast symptoms. Your Breast Care Team, Cate Tyler CNP, Medical Breast Specialist Leyla Shelton, MARCO [phone] ([place]) Miladys Matos, Acls Specialist [phone] ([place]) Allergies As of Date: 07/04/2024 Noted Allergy Reaction ARIPIPRAZOLE 08/19/2022 1 - Mental Status Change 14 - Other: See Comments 16 - Unknown BUPROPION 07/16/2021 16 - Unknown COCONUT 11/20/2022 7 - Swelling Date Reviewed: 07/04/2024 Reviewed by: Miladys Matos MA - Fully Assessed Reason for Visit: New Patient [172] Cmt: Left breast lump and pain for over [...] also c/o dark spots under her breast Primary Visit Diagnosis:Abnormal mammogram [R92.8] Other Visit Diagnoses:Mass of upper outer quadrant of left breast [N63.21] Fibrocystic breast changes of both breasts [N60.11, N60.12] Mastodynia [N64.4] Inversion of left nipple [N64.59] Bloody discharge from left nipple [N64.52] Nipple discharge [N64.52] Order(s):LINDA DIAG W AV BILATERAL [0179404] Order #: [id number] FUTURE US BREAST LTD LEFT [7480859] Order #: [id number] FUTURE MRI BREAST WO/W IVCON BILATERAL [1119779] Order #: [id number] FUTURE [] iv contrast (will be provided with radiology test)MRI Breast JUAN MANUEL Inject, intravenously, once for 1 dose. No [...] protocol in the MR contrast administration guidelines linkDisp: 1 EachRfl: 0 Prescriptions as of 07/06/2024 - varenicline (CHANTIX) 0.5 mg (11)- 1 [...] mg by mouth daily at bedtime. - odypgiwbebfe-bzp-xwjk-FA-vit K (BARIATRIC MULTIVITAMINS) 45 mg iron- 800 mcg-120 mcg cap Take by mouth. Problem List As Of Date 07/04/2024 Noted Resolved Poor growth, affecting management of [...] hysterectomy [Z90.710] 03/08/2024 Panic disorder [F41.0] 03/08/2024 Other instructions from your clinician: Thank you for trusting me with your breast care today. Please call or MyChart in 2-3 months with an update in your symptoms. With any changes in symptoms evaluated today such as worsening, pain, skin redness, warmth, drainage, palpable mass or other breast symptoms. Your Breast Care Team, Cate Tyler CNP, Medical Breast Specialist Leyla Shelton, MARCO [phone] ([place]) Miladys Matos, Acls Specialist [phone] ([place]) Prescriptions ordered this encounter Disp Refills Start End IV CONTRAST (RADIOLOGY PROCEDURE) 1 Ea* 0 07/04/2024 07/05/2024 Class: In Office Sig: MRI Breast JUAN MANUEL Inject, intravenously, once for 1 dose. No [...] in the MR contrast administration guidelines link Disposition: Return in about 3 months (around 10/04/2024) for MRI of breast now/pending outside imaging review. Follow-up and Disposition History for Encounter Date Provider Department Center 07/04/2024 [id number] [facility]LS[facility] Encounter Status:Closed by CATE TYLER on 07/06/24 PROGRESS Observed: 07/04/2024 10:52 AM Status: COMPLETED Source: [facility] HNO ID: [id number] Author: CATE TYLER APRN.IRENE Service: ? Author Type: Nurse Practitioner Type: Progress Notes Filed: 07/06/2024 08:25 Note Text: MEDICAL BREAST PATIENT NAME: Shazia Chou July 04, 2024 REFERRAL: She is self referred for an opinion regarding regarding LEFT breast painful lump and bloody nipple discharge HISTORY of PRESENT ILLNESS: Shazia Chou is a 33 year old premenopausal female who presents to the [facility] today for evaluation [...] Test performed by chemiluminescent immunoassay. Performed at [facility] [place] [address] She takes a multivitamin daily. BMD: No PERSONAL BREAST HISTORY: Breast biopsy: No Breast cysts: No Breast surgery: No Breast cancer: No CANCER SURVEILLANCE: Mammograms: Date in [facility]: 12/09/23; results - Negative-Left breast only Breast MRI: Date in [facility]: 06/10/22; results - Negative Colonoscopy: [...] discussed with the Patient or Patient's Authorized Utility Worker. As applicable, any other physician, advance practice provider, medical student, or other health professional student that will be observing or involved in the sensitive examination for educational or training purposes was discussed with the Patient or Authorized Utility Worker. The Patient or Authorized Utility Worker has agreed to proceed with the sensitive examination. (Sensitive examination includes inspection and/or palpation of the breasts, pelvis, prostate and anorectal regions) PHYSICAL EXAM: Ht 170.2 cm (5' 7 ) Wt 83.9 kg (185 lb) LMP 10/23/2022 BMI 28.98 kg/m? General: well-nourished, healthy, white, female, alert and [...] further evaluation as clinical discretion. Patient saw Cate Tyler CNP today. BI-RADS Category 4A: Suspicious [...] which included preparing to see the patient, eetp-ve-pnsw patient care, completing clinical documentation, obtaining and/or reviewing separately obtained history, performing a medically appropriate examination, counseling and educating the patient/family/caregiver, ordering medications, tests, or procedures, and communicating results to the patient/family/caregiver. Cate Tyler APRN.[facility] Medical Breast Specialist July 04, 2024 CC: Madalyn Carson [address] [place] [address] ECG COMPLETE Observed: 07/01/2024 11:16 AM Status: F Source: [facility] Ventricular Rate : 73 BPM Atrial Rate : 73 BPM P-R Interval : 138 ms QRS Duration : 84 ms Q-T Interval : 360 ms QTC Calculation(Bazett) : 396 ms Calculated P Perry : 26 degrees Calculated R Perry : 63 degrees Calculated T Perry : 38 degrees NORMAL SINUS RHYTHM WITH SINUS ARRHYTHMIA CANNOT EXCLUDE ANTERIOR MYOCARDIAL INFARCTION , AGE UNDETERMINED ABNORMAL ECG Confirmed by Aayush Tillman M.D. ([id number]) on 07/04/2024 10:25:09 PM NAME : SHAZIA CHOU PID : [id number] : 1990 Gender : Female Race : ORD : [id number] Procedure Date : Jul 01 2024 11:16:51 [...] : , Acquired by : LEXI HAMMOND, PROGRESS Observed: 07/01/2024 11:03 AM Status: COMPLETED Source: [facility] HNO ID: [id number] Author: MADALYN CARSON DO Service: ? Author Type: Physician Type: Progress Notes Filed: 07/01/2024 12:18 Note Text: [facility] Family Medicine Visit Assessment and Plan [...] rhythm with sinus arrhythmia at 73 BPM, TN interval 138 ms, normal QRS, poor quality [...] and Memory: Cognition normal. Comments: Slightly anxious CNOV Observed: 07/01/2024 11:00 AM Status: COMPLETED Source: [facility] Office Visit ([facility]) SHAZIA CHOU ([id number]) 1990 F Date Time Provider Department 07/01/24 11:00 AM MADALYN CARSON [facility] During your visit today, we recorded the following information about you: Pulse Blood pressure Weight Height 72/minute 101/59 86.3 kg 1.702 m Madalyn Carson DO 07/01/2024 12:18 PM [facility]igned [facility] [...] rhythm with sinus arrhythmia at 73 BPM, TN interval 138 ms, normal QRS, poor quality [...] PTH INTACT - VITAMIN D 25 HYDROXY Madalyn Carson DO 07/01/2024 Subjective Patient is a [...] and Memory: Cognition normal. Comments: Slightly anxious Madalyn Carson DO 07/01/2024 11:41 AM Signed Try [...] or feeling short of breath, sweating or ?cold sweat?, feeling full, indigestion, nausea or vomiting, feeling lightheaded, dizzy, very weak or anxious, and having a fast or irregular heartbeat. Follow up with me in 1 month Allergies As of Date: 07/01/2024 Noted Allergy Reaction ARIPIPRAZOLE 08/19/2022 1 - Mental Status Change 14 - Other: See Comments 16 - Unknown BUPROPION 07/16/2021 16 - Unknown COCONUT 11/20/2022 7 - Swelling Date Reviewed: 07/01/2024 Reviewed by: Madalyn Carson DO - Fully Assessed Reason for Visit: Establish Care [42] Cmt: Anxiety is getting bad On/off chest pain ,Rapid HR, trouble in sleeping, body aches, BP elevated , light headed dizzy, blurry vision, trouble eating or drinking can't stop eating Primary Visit Diagnosis:Chest pain, unspecified type [R07.9] Other Visit Diagnoses:Palpitations [R00.2] Bipolar affective disorder in remission (HCC) [F31.70] History of substance abuse (HCC) [F19.11] Borderline personality disorder (HCC) [F60.3] Serum calcium elevated [E83.52] Order(s):ECG COMPLETE [ECG01] Order #: [id number] COMPREHENSIVE METABOLIC PANEL [SQCMP] Order #: [id number] FUTURE PTH INTACT [SQPTHI] Order #: [id number] FUTURE VITAMIN D 25 HYDROXY [SQVITD] Order #: [id number] FUTURE Prescriptions as of 07/01/2024 - varenicline (CHANTIX) 0.5 mg (11)- 1 [...] mg by mouth daily at bedtime. - kbanptkbhpgj-fsx-xjnc-FA-vit K (BARIATRIC MULTIVITAMINS) 45 mg iron- 800 mcg-120 mcg cap Take by mouth. Problem List As Of Date 07/01/2024 Noted Resolved Poor growth, affecting management of [...] hysterectomy [Z90.710] 03/08/2024 Panic disorder [F41.0] 03/08/2024 Other instructions from your clinician: Try an extended release formulation of Melatonin, [...] or feeling short of breath, sweating or ?cold sweat?, feeling full, indigestion, nausea or vomiting, feeling lightheaded, dizzy, very weak or anxious, and having a fast or irregular heartbeat. Follow up with me in 1 month Medications Discontinued During This Encounter Prescriptions - clonazePAM (KLONOPIN) 0.5 mg tablet (Discontinued) Take 1 tablet by mouth two times a day as needed for anxiety (Panic attacks) for up to 30 days. - acetaZOLAMIDE (DIAMOX) 250 mg tablet (Discontinued) Take 250 mg by mouth two times a day as needed (For headaches; intracranial hypertension). - naltrexone 50 mg tablet (Discontinued) Take 1 tablet by mouth once daily. - triamcinolone acetonide (KENALOG) 0.1 % cream (Discontinued) Apply to affected area two times a day. Level of Service: OFFICE/OUTPATIENT ESTABLISHED MOD MDM 30 MIN [72211] Additional E/M codes: VISIT CPLX INHERENT EANDM ASSOC WITH MED * Disposition: Return in about 4 weeks (around 07/29/2024). LOS History for Encounter Level of Service: OFFICE/OUTPATIENT ESTABLISHED HIGH MDM 40 MIN[54370] Date AND Time: 07-01-2024 12:18 PM Recorded by User: MADALYN CARSON Follow-up and Disposition History for Encounter Date Provider Department Center 07/01/2024 [id number], JACOB [facility] Encounter Status:Closed by MADALYN CARSON on 07/01/24 [facility] Observed: 06/30/2024 12:00 AM Status: COMPLETED Source: [facility] Telephone (BRalikeBD) SHAZIA CHOU ([id number]) 1990 F Date Time Provider Department 06/30/24 LESLIE TYLERFallon BONILLA During your visit today, we recorded the following information about you: Miladys Matos MA 06/30/2024 2:44 PM Signed I called [...] had a mammogram and US done at [facility] recently because she felt a lump in [...] one another or not. She plans to brain picker disk with reports from [employer] before her appointment. I asked her to arrive 30 minutes early to appointment so that we can start uploading the disk and she can fill out paperwork. She was appreciative for the call and information. Miladys Matos MA Allergies As of Date: 06/30/2024 Noted Allergy Reaction ARIPIPRAZOLE 08/19/2022 1 - Mental Status Change 14 - Other: See Comments 16 - Unknown BUPROPION 07/16/2021 16 - Unknown COCONUT 11/20/2022 7 - Swelling Date Reviewed: 03/08/2024 Reviewed by: Leyla Mcrae, MARCO - Fully Assessed Reason for Visit: Appointment [...] mg by mouth daily at bedtime. - veaazbsmrvur-bic-rxvs-FA-vit K (BARIATRIC MULTIVITAMINS) 45 mg iron- 800 [...] Panic disorder [F41.0] 03/08/2024 Encounter Status:Closed by MILADYS MATOS on 07/01/24 ALLERGIES DATE TYPE / CODE NAME / CODE REACTION SEVERITY SOURCE 05/30/2025 Drug Allergy/41 3179374(SN OMED CT) coconut/[id number] (RXNORM) Swelling of Lip/Tongue/Throat Unknown [facility] 05/30/2025 Drug Allergy/41 3155618(SN OMED CT) buspirone/M1102750 86(RXNORM) Unknown Reaction Mild (Qualifier Value) [facility] 02/24/2023 DRUG INGREDI/41 7846425(SN OMED CT) ARIPIPRAZOLE [facility] Ambulatory 11/20/2022 DRUG INGREDI/41 1622181(SN OMED CT) COCONUT SWELLING [facility] 08/19/2022 DRUG INGREDI/41 6135131(SN OMED CT) ARIPIPRAZOLE [facility] 07/16/2021 DRUG INGREDI/41 5005855(SN OMED CT) BUPROPION [facility] Ambulatory 07/16/2021 DRUG INGREDI/41 8979042(SN OMED CT) BUPROPION UNKNOWN [facility] 07/24/2020 DRUG INGREDI~Fo od/9141361 00(SNOMED CT) COCONUT Swelling [facility] Amb[facility] 07/18/2020 DRUG INGREDI~Fo od/3381164 00(SNOMED CT) COCONUT OIL, HYDROGENATED Itching [facility] Ambulatory 05/09/2020 DRUG INGREDI~Fo od/4432289 00(SNOMED CT) COCONUT FLAVOR Anaphylaxis [facility] Ambulatory YASIR3128319 06(SNOMED CT) No Known Allergies [facility] YASIR7731918 06(SNOMED CT) Coconut Oil itching~swelling [facility] YASIR0426203 06(SNOMED CT) Abilify suicidal [facility] YASIR3782722 06(SNOMED CT) BuSpar palpitations [facility] ENCOUNTERS ADMIT/DISCHARGE ACCOUNT NUMBER ADMITTING ENCOUNTER CLASS LOCATION SOURCE 06/06/2025 [id number] [facility]ANDEE E [facility] 05/30/2025/05/30/20 [id number] [facility] 05/29/2025 [id number] [facility] 05/16/2025/05/16/20 [id number] [facility] 05/04/2025/05/04/20 [id number] Ambulatory Building:NOM S [facility] 04/26/2025/04/26/20 25 [id number] [facility] 04/21/2025/04/25/20 [id number] Ambulatory [facility]Building :FT.Cardiolo gy ClinicRoom: CD:[id number] [facility] 04/13/2025/04/13/20 [id number] Ambulatory Building:NOM S [facility] 04/09/2025/04/09/20 25 [id number] Ambulatory Building:NOM S [facility] 03/29/2025/03/29/20 25 [id number] Ambulatory [facility]Building :FT Sleep ClinicRoom: CD:[id number] [facility] 03/13/2025/03/13/20 [id number] MD Jak Peace Ambulatory [facility]Building :FT NM [facility] 03/09/2025/03/09/20 [id number] Babar Mayers Ambulatory [facility]Building :FT PMCRoom: EX2 [facility] 03/03/2025/03/03/20 [id number] Ambulatory [facility]Building :FT OPS [facility] 03/02/2025/03/02/20 [id number] SWAPNA RICK Ambulatory [facility] :FT LAB [facility] 03/02/2025 [id number] SWAPNA RICK Ambulatory [facility] :FT LAB [facility] 02/17/2025/02/18/20 [id number] Emergency [facility]Building :EDRoom: ED-05Bed: CD:[id number] [facility] 02/17/2025 [id number] Emergency [facility]Building :EDRoom: ED-05Bed: CD:[id number] [facility] 02/16/2025/02/17/20 [id number] MD Jak Peace Ambulatory [facility] :FT CAR [facility] 02/16/2025/02/17/20 [id number] Ambulatory [facility] :FT.Cardiolo gy ClinicRoom: CD:[id number] [facility] 02/09/2025/02/10/20 [id number] MOLLY WAGNER Ambulatory [facility]Building :FT CAR [facility] 02/03/2025/02/04/20 [id number] MOLLY WAGNER Ambulatory [facility] :FT CAR [facility] 01/27/2025/01/28/20 [id number] JUANPABLO Kate Ambulatory [facility] :FT PMC [facility] 01/24/2025/01/25/20 [id number] Babar Mayers Ambulatory [facility] :FT OPS [facility] 01/13/2025/01/14/20 [id number] JUANPABLO Kate Ambulatory [facility]Building :FT PMCRoom: [facility] 12/16/2024/12/17/19 [id number] Corby Larsen [facility] 12/14/2024/12/16/19 [id number] David Zazueta Ambulatory [facility] :FT XR [facility] 12/12/2024/12/13/19 [id number] Jacob Baker [facility] [facility] 11/29/2024/12/01/19 [id number] Jennie Durand Ambulatory [facility] :FT US [facility] 11/28/2024/11/29/19 [id number] Ambulatory [facility] :FT OPS [facility] 11/18/2024/11/19/19 [id number] Ambulatory FT FM [place]:FT FM Abril [facility] 11/15/2024/11/16/19 [id number] JUANPABLO Kate Ambulatory [facility]Building :FT PMCRoom: [facility] 11/11/2024/11/11/19 [id number] David Zazueta Ambulatory [facility] :FT MR [facility] 11/02/2024/11/02/19 [id number] Jennie Durand Ambulatory [facility] :FT XR [facility] 11/02/2024/01/12/20 [id number] Ambulatory [facility] :FT PHY [facility] 10/18/2024/10/18/19 [id number] Emergency [facility]Building :EDRoom: Ex-A [facility] 10/14/2024/10/14/19 [id number] Ambulatory FT FM [place]:FT FM [place]Room : CD:[id number] [address] [place] [address] 09/30/2024/09/30/19 [id number] Ambulatory FT FM [place] ding:FT FM BellevueRoom : CD:[id number] [address] [place] [address] 09/27/2024/09/27/19 25 [id number] Ambulatory Building:KEVIN Cardenas [facility] 09/27/2024/09/27/19 [id number] Ambulatory FT FM [place]:FT FM [place]Room : CD:[id number] [address] [place] [address] 09/26/2024/09/26/19 [id number] Ambulatory FT FM [place]:FT FM Abril [facility] 09/21/2024/09/21/19 [id number] Ambulatory Building:[facility] 09/20/2024/09/20/19 [id number] KURT BALBUENA Ambulatory [facility]Building :FT LAB [facility] 09/20/2024 [id number] KURT BALBUENA Ambulatory [facility]Building :FT LAB [facility] 09/20/2024/09/20/19 [id number] Ambulatory FT FM [place]:FT FM BellevueRoom : CD:[id number] [address] [place] [address] 09/16/2024 [id number] Ambulatory FT FM [place] ding:FT [facility] 09/15/2024/09/15/19 [id number] Sailaja Anderson [facility] 09/15/2024/09/15/19 [id number] Ambulatory FT FM [place] ding:FT FM BellevueRoom : CD:[id number] [address] [place] [address] 09/13/2024/09/13/20 [id number] Ambulatory Building:[address] 08/18/2024 [id number] VANNESA MARADIAGA Ambulatory [facility]Building :FT LAB [facility] 08/18/2024/08/18/20 [id number] VANNESA MARADIAGA Ambulatory [facility]Building :FT LAB [facility] 08/08/2024/08/08/20 24 [id number] Ambulatory Building:[address] 07/26/2024/07/26/20 24 [id number] [facility] 07/25/2024/07/25/20 24 [id number] [facility]FPNRMOC [facility] 07/11/2024/07/11/20 24 [id number] [facility]ST[facility] 07/04/2024/07/04/20 24 [id number] [facility]ulatory [facility]ST[facility] 07/04/2024/07/04/20 24 [id number] [facility]ulatory [facility]ST[facility] 07/01/2024/07/01/20 24 [id number] [facility]FPNRMOC [facility] PAYERS ENCOUNTER GUARANTOR PAYER SUBSCRIBER SOURCE 06/06/2025 Shazia Isreal ChouJ[address] [place] [id number]: () Primary Insurance:Self PayPolicy Number: Effective Date:2023-01-06 [facility] 05/30/2025 Shazia Isreal ChouAiloxba[address] [place], [place] [id number]: () Primary Insurance:[place] [employer] Dual AdvPolicy Number: [id number] Date:[id number] [address] [place] [address]TY: Shazia Isreal ChouDOB: [id number] [place], [place] [id number]: () [facility] 05/30/2025 Secondary Insurance:MedicaidPoli cy Number: [id number] Date:2025-05-04 Shazia Isreal MarkatinDOB: [id number] [address]Tel: () [facility] 05/30/2025 Tertiary Insurance:Self PayPolicy Number: Effective Date:2025-05-04 [facility] 05/29/[address] [place] [address]Tel: () Primary Insurance:[place] MediBlue Dual AdvPolicy Number: [id number] Date:1065-87-52QF [address]RJAVMHP[address] [place] [address]QX: Shazia ChouDOB: 2094-34-42OEX999 [place] [address]Tel: (HP) [facility] 05/29/2025 Secondary Insurance:MedicaidPoli cy Number: [id number] Date:2025-05-04 Shazia ChouDOB: [id number] [address]Tel: (HP) [facility] 05/29/2025 Tertiary Insurance:Self PayPolicy Number: Effective Date:2025-05-04 [facility] 05/16/[address] [place], [place] [address]Tel: (HP) Primary Insurance:Self PayPolicy Number: Effective Date:2025-05-04 [facility] 05/04/2025 SHAZIA NAZARIOB: [address]Tel: (HP) Primary Insurance:MED[place]ID [place] Number: [id number] Date:2023-09-14 SHAZIA NAZARIOB: [id number] [address] [facility] EPIC 05/04/2025 Secondary Insurance:ANTHEM MEDICARE ADVANTAGEPolicy Number: [id number] Date:2024-10-15 SHAZIA NAZARIOB: [id number] [address] [facility] EPIC 04/26/[address] [place], [place] [address]Tel: (HP) Primary Insurance:[place] MediBlue Dual AdvPolicy Number: [id number] Date:5150-06-35RS [address]WZABQMS, [place] [address]WJ: Shazia Bach José AntonioDOB: 1080-67-58NLJ649 [place] [address]Oth: (HP) [facility] 04/26/2025 Secondary Insurance:MedicaidPoli cy Number: [id number] Date:2025-04-13 Shazia Bach José AntonioDOB: 2619-75-96VOW754 [place] [address]Xpt: (HP) [facility] 04/26/2025 Tertiary Insurance:Self PayPolicy Number: Effective Date:2025-04-18 [facility] 04/21/2025 SHAZIA L ARAVINDB: [facility]: [phone]~~(150) 7 (HP) Primary Insurance:AnthemPolicy Number: [id number] Date:0458-85-19VH [address], [place] [address]UZ: SHAZIA L [facility] 04/21/2025 Secondary Insurance:MedicaidPoli cy Number: [id number] Date:9988-99-84XF [address]Qrzzokwp, [place] [address]KH: SHAZIAURSULA MARKUniversity [facility]als [facility] 04/13/2025 SHAZIA Bach JOSÉ ANTONIODOB: [place] [address]Ayj: (HP) Primary Insurance:MEDICAID [place] Number: [id number] Date:2023-09-14 SHAZIA L JOSÉ ANTONIODOB: [id number] [place] [address] [facility] 04/13/2025 Secondary Insurance:ANTHEM MEDICARE ADVANTAGEPolicy Number: [id number] Date:2024-10-15 SHAZIA CHOUDOB: [id number] [place] [address] [facility] 04/09/2025 SHAZIA MARKATINDOB: [place] [address]Doq: (HP) Primary Insurance:MEDICAREPoli cy Number: [id number] Date:7679-32-69Rpbx Name:Medicare SHAZIA CHOUDOB: 7187-25-83MSW108 [place] [address] [facility] 04/09/2025 Secondary Insurance:MEDICAID [place] Number: [id number] Date:2023-09-14 SHAZIA CHOUDOB: [id number] [place] [address] [facility] 03/29/2025 [address]DOB: [facility]: [phone]~~(216) 7 (HP) Primary Insurance:AnthemPolicy Number: [id number] Date:1042-23-44EW [address]Brgqzhb, [place] [address]RP: SHAZIA Bach ASH [facility] 03/29/2025 Secondary Insurance:MedicaidPoli cy Number: [id number] Date:7158-08-02KW [address]Obcqwrye, [place] [address]XV: SHAZIA Bach ASH [facility] 03/13/2025 [facility] [facility]DOB: [facility]: [phone]~~(216) 7 (HP) Primary Insurance:AnthemPolicy Number: [id number] Date:1934-38-32NX [address]Xjigzwe, [place] [address]PA: SHAZIA ALEMAN [facility] 03/13/2025 Secondary Insurance:MedicaidPoli cy Number: [id number] Date:5638-89-14HY [address]Lqcrnbud, [place] [address]TQ: SHAZIA ALEMAN [facility] 03/09/2025 SHAZIA CHOUDOB: [facility] STTel: [phone]~~(216) 7 (HP) Primary Insurance:AnthemPolicy Number: [id number] Date:2828-55-97SA [address]Uwnnvqi, [place] [address]VJ: SHAZIA ALEMAN [facility] 03/09/2025 Secondary Insurance:MedicaidPoli cy Number: [id number] Date:7871-44-51DL [address]ylzvb [place] [address]AL: SHAZIA ALEMAN [facility] 03/03/2025 SHAZIA MARKATINDOB: [facility] STTel: [phone]~~(216) 7 (HP) Primary Insurance:AnthemPolicy Number: [id number] Date:3425-10-21RL [address]Jsnznda, [place] [address]TN: SHAZIA ALEMAN [facility] 03/03/2025 Secondary Insurance:MedicaidPoli cy Number: [id number] Date:1557-41-78ZV [address]Ghaibuym [place] [address]JQ: SHAZIA ALEMAN [facility] 03/02/2025 SHAZIA CHOUDOB: [facility] STTel: [phone]~~(216) 7 (HP) Primary Insurance:AnthemPolicy Number: [id number] Date:1231-72-56GO [address] [place] [address]DK: SHAZIA ALEMAN [facility] 03/02/2025 Secondary Insurance:MedicaidPoli cy Number: [id number] Date:3937-16-54SU [address], [place] [address]RS: SHAZIA ALEMAN [facility] 02/17/2025 SHAZIA CHOUDOB: [facility] STTel: [phone]~~(216) 7 (HP) Primary Insurance:AnthemPolicy Number: [id number] Date:4697-45-24BJ [address] [place] [address]NX: SHAZIA ALEMAN [facility] 02/17/2025 Secondary Insurance:MedicaidPoli cy Number: [id number] Date:7095-93-73JW [address]Eqnekxwq, [place] [address]RW: [facility] 02/17/2025 SHAZIA MARKATINDOB: [facility] STTel: [phone]~~(216) 7 (HP) Primary Insurance:AnthemPolicy Number: [id number] Date:7061-51-10WW [address] [place] [address]FK: SHAZIA [facility]OUSt[facility] 02/17/2025 Secondary Insurance:MedicaidPoli cy Number: [id number] Date:3684-94-90LM [address]Nnhgufqg, [place] [address]TJ: SHAZIA ALEMAN [facility] 02/16/2025 SHAZIA CHOUDOB: [facility] STTel: [phone]~~(216) 7 (HP) Primary Insurance:AnthemPolicy Number: [id number] Date:0893-06-31ET [address]103Tdgyfjx, [place] [address]ID: SHAZIA ALEMAN [facility] 02/16/2025 Secondary Insurance:MedicaidPoli cy Number: [id number] Date:9950-58-36CT [address]yhkgbqmLAMBERTVIL[place], [place] [address]WF: SHAZIA [facility]OUSt. [facility] 02/16/2025 SHAZIA CHOUDOB: [facility] STTel: [phone]~~(216) 7 (HP) Primary Insurance:AnthemPolicy Number: [id number] Date:4612-36-41GY [address]Trutbkc, [place] [address]EO: SHAZIA ALEMAN [facility] 02/16/2025 Secondary Insurance:MedicaidPoli cy Number: [id number] Date:3972-54-72DN [address]228ChxrxkliLAMBERTVILLE, [place] [address]XH: SHAZIA [facility]OUSt. [facility] 02/09/2025 SHAZIA CHOUDOB: [facility] STTel: [phone]~~(216) 7 (HP) Primary Insurance:AnthemPolicy Number: [id number] Date:3712-05-58GJ [address]Xcqdckl, [place] [address]XY: SHAZIA ALEMAN [facility] 02/09/2025 Secondary Insurance:MedicaidPoli cy Number: [id number] Date:5375-11-28KX [address]McqzzxqnLAMBERTVILLE, [place] [address]FC: SHAZIA CHOUSt. [facility] 02/03/2025 SHAZIA CHOUDOB: [facility] STTel: [phone]~~(216) 7 (HP) Primary Insurance:AnthemPolicy Number: [id number] Date:7941-55-08QT [address], [place] [address]HZ: SHAZIA CHOUSt[facility] 02/03/2025 Secondary Insurance:MedicaidPoli cy Number: [id number] Date:9029-17-56ET [address]Tgfmhjad, [place] [address]RP: SHAZIA ALEMAN [facility] 01/27/2025 SHAZIA MARKATINDOB: [facility] STTel: ~~(2 1 (HP) Primary Insurance:AnthemPolicy Number: [id number] Date:0212-39-20XY [address]Daszlgd, [place] [address]LI: SHAZIA ALEMAN [facility] 01/27/2025 Secondary Insurance:MedicaidPoli cy Number: [id number] Date:0024-29-47NL [address]Gzbcrovm, [place] [address]QS: SHAZIA CHOUSt[facility] 01/24/[address]AT[address]: [facility]Te: ~~(2 1 (HP) Primary Insurance:AnthemPolicy Number: [id number] Date:7006-92-13QV [address]Elfbkyp, [place] [address]GM: SHAZIA ALEMAN [facility] 01/24/2025 Secondary Insurance:MedicaidPoli cy Number: [id number] Date:2399-26-09LJ [address]Bxludzhq, [place] [address]QC: SHAZIA CHOUSt[facility] 01/13/2025 [facility] [facility]OUDOB: [facility]: ~~(2 1 (HP) Primary Insurance:AnthemPolicy Number: [id number] Date:7777-62-49XQ [address] [place] [address]KA: SHAZIA CHOUSt[facility] 01/13/2025 Secondary Insurance:MedicaidPoli cy Number: [id number] Date:7370-78-70XT [address]Snzec[place], [place] [address]JZ: SHAZIA L [facility] 12/16/[address] [place], [place] [address]Tel: (HP) Primary Insurance:[place] MediBlue Dual AdvPolicy Number: [id number] Date:1638-13-44SQ [address]PYEISHT[address] [place] [address]YJ: Shazia Bach JasatinDOB: 7762-31-11CMX274 [place] [address]Tel: () [facility] 12/16/2024 Secondary Insurance:MedicaidPoli cy Number: [id number] Date:2024-12-15 Shazia Bach JasatinDOB: 6515-16-01VWW[address] [place], [place] [address]Tel: (HP) [facility] 12/16/2024 Tertiary Insurance:Self PayPolicy Number: Effective Date:2024-12-16 [facility] 12/14/2024 SHAZIA Bach JASATINDOB: [facility]: ~~(2 1 (HP) Primary Insurance:AnthemPolicy Number: [id number] Date:5915-74-95ZE [address]Boswlsy[address] [place] [address]WX: SHAZIAURSULA CHOUSt. [facility] 12/14/2024 Secondary Insurance:MedicaidPoli cy Number: [id number] Date:3073-07-10HV [address]Ljvcbzke, [place] [address]GX: SHAZIAURSULA MARKUniversity [facility]als [facility] 12/12/[address] [place], [place] [address]Tel: () Primary Insurance:[place] MediBlue Dual AdvPolicy Number: [id number] Date:2821-11-48JK [address]LFCNKNO [place] [address]MR: Shazia ChouDOB: 5726-04-35TLH192 [address]Tel: () [facility] 12/12/2024 Secondary Insurance:MedicaidPoli cy Number: [id number] Date:2024-12-12 Shazia ChouDOB: 1509-56-08FIB775 [address]Tel: () [facility] 12/12/2024 Tertiary Insurance:Self PayPolicy Number: Effective Date:2024-12-12 [facility] 11/29/2024 SH[address] MARKATINDOB: [facility]: ~~(2 1 (HP) Primary Insurance:AnthemPolicy Number: [id number] Date:6904-30-84GK [address]Pxzjzxw [place] [address]SU: SHAZIAURSULA CHOUSt. [facility] 11/29/2024 Secondary Insurance:MedicaidPoli cy Number: [id number] Date:1742-78-60BQ [address]Hyqngvkd, [place] [address]HU: SHAZIA ALEMAN [facility] 11/28/2024 SHAZIA CHOUDOB: [facility] STTel: ~~(2 1 (HP) Primary Insurance:AnthemPolicy Number: [id number] Date:9489-21-05WT [address]ihkl[place] [address]HP: SHAZIA ALEMAN [facility] 11/28/2024 Secondary Insurance:MedicaidPoli cy Number: [id number] Date:5170-65-44LI [address]661NxrzpovyLAMBERTVILLE, [place] [address]FX: SHAZIA ALEMAN [facility] 11/18/2024 [facility] [facility]DOB: [facility]: ~~(2 1 (HP) Primary Insurance:MEDICAREPoli cy Number: [id number] Date:7405-43-08JO [address] [address]FMEKEOIGN, [place] [address]OL: SHAZIA CHOUSt. [facility] 11/18/2024 Secondary Insurance:MedicaidPoli cy Number: [id number] Date:4863-29-49WS [address]ArokubkyLAMBERTVILLE, [place] [address]BX: SHAZIA ALEMAN [facility] 11/15/2024 [address] [facility]DOB: [facility]: ~~(2 1 (HP) Primary Insurance:AnthemPolicy Number: [id number] Date:5301-08-49IY [address]Rohatls, [place] [address]XS: SHAZIA ALEMAN [facility] 11/15/2024 Secondary Insurance:MedicaidPoli cy Number: [id number] Date:1452-50-59WN [address]Vxebbtba, [place] [address]BX: SHAZIA ALEMAN [facility] 11/11/2024 SHAZIA CHOUDOB: [facility] STTel: ~~(2 1 (HP) Primary Insurance:AnthemPolicy Number: [id number] Date:2380-28-36MK [address]Fesndvm [place] [address]GM: SHAZIA ALEMAN [facility] 11/11/2024 Secondary Insurance:MedicaidPoli cy Number: [id number] Date:7195-54-21ZY [address]Fpxpjiqq, [place] [address]KI: SHAZIA ALEMAN [facility] 11/02/2024 [facility] [facility]DOB: [facility]: ~~(2 1 (HP) Primary Insurance:AnthemPolicy Number: [id number] Date:1529-67-07SB [address]FVVYXYE, [place] [address]BC: SHAZIA ALEMAN [facility] 11/02/2024 Secondary Insurance:MedicaidPoli cy Number: [id number] Date:8585-62-78DQ [address] 251252SxugorhcLAMBERTVILLE, [place] [address]AL: SHAZIA ALEMAN [facility] 11/02/2024 SHAZIA CHOUDOB: [facility] STTel: ~~(2 1 (HP) Primary Insurance:AnthemPolicy Number: [id number] Date:6818-72-10YY [address]EDUZSOZ, [place] [address]RI: SHAZIA ALEMAN [facility] 11/02/2024 Secondary Insurance:MedicaidPoli cy Number: [id number] Date:8330-68-76XY [address] 04[address]37MmyezmkfLAMBERTVILLE, [place] [address]QG: SHAZIA ALEMAN [facility] 10/18/2024 [address] [facility]OUDOB: [facility]: ~~(2 1 (HP) Primary Insurance:AnthemPolicy Number: [id number] Date:3387-31-55UQ [address]Z[place] [address]TP: SHAZIA ALEMAN [facility] 10/18/2024 Secondary Insurance:MedicaidPoli cy Number: [id number] Date:2595-11-42AM [address] 77[address]WlbvbavnLAMBERTVILLE, [place] [address]NX: SHAZIA ALEMAN [facility] 10/14/2024 [facility] [facility]OUDOB: [facility]: ~~(2 1 (HP) Primary Insurance:MEDICAREPoli cy Number: [id number] Date:1015-46-92UA [address] [address]SKDETTRXCHOOPLE, [place] [address]IM: SHAZIA ALEMAN [facility] 10/14/2024 Secondary Insurance:MedicaidPoli cy Number: [id number] Date:0255-17-26LH [address]649[address]NbqhlmvqLAMBERTVILLE, [place] [address]HA: SHAZIA ALEMAN [facility] 09/30/2024 SHAZIA CHOUDOB: [facility] STTel: ~~(2 1 (HP) Primary Insurance:MEDICAREPoli cy Number: [id number] Date:8195-20-26EK [address]BYMQISDVM [place] [address]BG: SHAZIA ALEMAN [facility] 09/30/2024 Secondary Insurance:MedicaidPoli cy Number: [id number] Date:8720-88-17QJ [address]Qgjtnryf, [place] [address]DV: SHAZIA ALEMAN [facility] 09/27/2024 SHAZIA CHOUDOB: [place] [address]Kkd: (HP) Primary Insurance:MEDICAREPoli cy Number: [id number] Date:9196-53-64Uakl Name:Medicare SHAZIA CHOUDOB: [id number] [address] [facility] 09/27/2024 Secondary Insurance:MEDICAID [place] Number: [id number] Date:2023-09-14 SHAZIA CHOUDOB: [id number] [address] [facility] EPIC 09/27/2024 SHAZIA CHOUDOB: [facility] STTel: ~~(2 1 (HP) Primary Insurance:MEDICAREPoli cy Number: [id number] Date:7690-93-16PM [address] [address]AJPZDRAZR, [place] [address]QF: SHAZIA ALEMAN [facility] 09/27/2024 Secondary Insurance:MedicaidPoli cy Number: [id number] Date:0868-38-50NO [address]Npmmwyyz, [place] [address]LZ: SHAZIA ALEMAN [facility] 09/26/2024 SHAZIA CHOUDOB: [facility] STTel: ~~(2 1 (HP) Primary Insurance:MEDICAREPoli cy Number: [id number] Date:7646-56-06XO [address], [place] [address]PV: SHAZIA ALEMAN [facility] 09/26/2024 Secondary Insurance:MedicaidPoli cy Number: [id number] Date:5198-77-31YK [address] [place] [address]ZX: SHAZIA ALEMAN [facility] 09/21/2024 SHAZIA CHOUDOB: [place] [address]Tel: (HP) Primary Insurance:MEDICAREPoli cy Number: [id number] Date:1400-84-03Alnl Name:Medicare SHAZIA CHOUDOB: [id number] [facility] EPIC 09/21/2024 Secondary Insurance:MEDICAID [place]Policy Number: [id number] Date:2023-09-14 SHAZIA CHOUDOB: [id number] [facility] EPIC 09/20/2024 SHAZIA CHOUDOB: [facility] STTel: ~~(2 1 (HP) Primary Insurance:MEDICAREPoli cy Number: [id number] Date:6208-15-36VS [address]MYKLKSBQO[address] [place] [address]NW: SHAZIA ALEMAN [facility] 09/20/2024 Secondary Insurance:MedicaidPoli cy Number: [id number] Date:7967-05-76LW [address] [place] [address]KB: SHAZIA ALMEAN [facility] 09/20/2024 SHAZIA CHOUDOB: [facility] STTel: ~~(2 1 (HP) Primary Insurance:MEDICAREPoli cy Number: [id number] Date:3247-71-17AK [address] [address]EYFVTLDKT [place] [address]OU: [facility]AZIA MARKUniversity [facility]als [facility] 09/20/2024 Secondary Insurance:MedicaidPoli cy Number: [id number] Date:2200-31-44GI [address] [place] [address]QS: SHAZIA L [facility] 09/15/2024 Shazia Chou[address] [place] [address]Tel: (HP) Primary Insurance:MedicarePoli cy Number: [id number] Date:2024-09-15 Shazia MarkatinDOB: 3645-56-92BMB814 [place] [address]Ncm: () [facility] 09/15/2024 Secondary Insurance:MedicaidPoli cy Number: [id number] Date:2024-09-15 Shazia MarkatinDOB: 2499-21-79TEY493 [place] [address]Tel: (HP) [facility] 09/15/2024 Tertiary Insurance:Self PayPolicy Number: Effective Date:2024-09-15 [facility] 09/15/2024 SHAZ[address] MARKATINDOB: [facility]: ~~(2 1 (HP) Primary Insurance:MEDICAREPoli cy Number: [id number] Date:2892-66-97EA [address] [address]GQCXLZXMC [place] [address]IU: SHAZIA L [facility] 09/15/2024 Secondary Insurance:MedicaidPoli cy Number: [id number] Date:3600-78-98LC [address] [place] [address]HE: SHAZIA ALEMAN [facility] 09/13/2024 SHAZIA CHUODOB: [place] [address]Zfx: (HP) (WP) Primary Insurance:[place] MEDICAREPolicy Number: [id number] Date:2023-09-142024-09-13 SHAZIA CHOUDOB: 0929-70-46NGD9[address] [place] [address]Tel: (HP) [facility] 09/13/2024 Secondary Insurance:MEDICAIDPoli cy Number: [id number] Date:2023-09-14 SHAZIA CHOUB: 7669-52-08DUQ923 [place] [address]Vzv: (HP) [facility] 08/18/2024 [facility] [facility]DOB: [facility] ~~(2 1 (HP) Primary Insurance:HUMANAPolicy Number: [id number] Date:2832-00-17OE [address] [place] [address]NN: [facility]IAURSULA [facility]ITALDUSTY [facility] 08/18/2024 Secondary Insurance:MedicaidPoli cy Number: [id number] Date:5841-29-22VU [address]ksc[address]wg[address] [place] [address]JA: SHAZIADION MARKUniversity [facility]als [facility] 08/08/2024 SHAZIA CHOUDOB: [place], [place] [address]Cbt: (HP) (WP) Primary Insurance:HUMANA MEDICAREPolicy Number: [id number] Date:2023-09-14 SHAZIA CHOUB: [id number] [place] [address]Ezx: () [facility] 08/08/2024 Secondary Insurance:MEDICAIDPoli cy Number: [id number] Date:2023-09-14 SHAZIA CHOUB: [id number] [place], [place] [address]Ssy: () [facility] 07/26/2024 Primary Insurance:HU[place]NA MEDICARE PPOPolicy Number: [id number] Date:8099-63-83Kvmx Name:Ronald DEE ARAVINDB: [id number] [address] 07/26/2024 Secondary Insurance:[place] MEDICAIDPolicy Number: [id number] Date:4659-64-35Tqej Name:Rony DEE RONALD: [id number] [address] 07/25/2024 Primary Insurance:[place] MEDICARE PPOPolicy Number: [id number] Date:2429-79-05Hzxu Name:Ronald DEE RONALD: [id number] [address] 07/25/2024 Secondary Insurance:[place] MEDICAIDPolicy Number: [id number] Date:8596-34-05Rpho Name:Rony DEE RONALD: [id number] [address] 07/11/2024 Primary Insurance:[place] MEDICARE PPOPolicy Number: [id number] Date:8526-48-69Fucg Name:Ronald DEE RONALD: [id number] [address] 07/11/2024 Secondary Insurance:[place] MEDICAIDPolicy Number: [id number] Date:2510-35-63Folc Name:Rony DEE RONALD: [id number] [place] [address] [facility] 07/04/2024 Primary Insurance:[place] MEDICARE PPOPolicy Number: [id number] Date:8737-00-93Dhpy Name:Ronald NAZARIOSilvestre: [id number] [place] [address] [facility] 07/04/2024 Secondary Insurance:[place] MEDICAIDPolicy Number: [id number] Date:1913-01-72Mash Name:Rony CHOUB: [id number] [place] [address] [facility] 07/04/2024 Primary Insurance:[place] MEDICARE PPOPolicy Number: [id number] Date:7165-86-84Mhsy Name:Ronald DEE RONALD: [id number] [place] [id number] [facility] 07/04/2024 Secondary Insurance:[place] MEDICAIDPolicy Number: [id number] Date:9614-31-56Goll Name:Rony CHOULIZ: [id number] [place] [address] [facility] 07/01/2024 Primary Insurance:[place] MEDICARE PPOPolicy Number: [id number] Date:5893-46-33Nynw Name:Ronald CHOULIZ: [id number] [place] [address] [facility] 07/01/2024 Secondary Insurance:[place] MEDICAIDPolicy Number: [id number] Date:6919-87-63Sdty Name:Rony CHOULIZ: [id number] [place] [id number] [facility]
[2025-06-13 10:09] VITALS: BP 156/96; PULSE 74; TEMP 36.6; O2SAT 98; BMI 30.5
--- NOTE | 2025-06-13 10:19 | US_ITS ---
Patient Name: LEILA HASSAN MR#: [id number] : 1990 Exam Date: 06/13/2025 Ordering Doctor: FABIOLA COSTELLO CORRECTION Corrected on: 06/13/2025; RADIOLOGY REPORT PROCEDURE: US BREAST LT LIMITED COMPARISON: None. INDICATIONS: r/o abscess TECHNIQUE: Breast ultrasound was performed, with evaluation focusing only on specific areas of concern. FINDINGS: LEFT BREAST: Deep to the incision in the left breast at the 3 o'clock position there is a heterogeneous collection measuring 5.7 x 2.6 x 5.8 cm in greatest dimension. There are blood vessels at the periphery of the collection without evidence of soft tissue hyperemia. This most likely represents a postoperative seroma or hematoma. Abscess is felt to be less likely. Close clinical observation is recommended with repeat imaging as symptoms or impaired DIAGNOSTIC CATEGORY 2--BENIGN FINDING: RECOMMENDATIONS: CLINICAL EVALUATION. PLEASE NOTE: A NORMAL ULTRASOUND EXAMINATION DOES NOT EXCLUDE THE POSSIBILITY OF BREAST CANCER. A CLINICALLY SUSPICIOUS PALPABLE LUMP SHOULD BE BIOPSIED. Dictated by: Molina Shetty MD on 06/13/2025 at 11:04 Approved by: Molina Shetty MD on 06/13/2025 at 11:08 Dictated by: Molina Shetty MD on 06/13/2025 at 12:07 Approved by: Molina Shetty MD on 06/13/2025 at 12:07
[2025-06-13] MEDS: OXYCODONE HCL 5 MG TABLET PO (10:25)
--- NOTE | 2025-06-13 14:48 | ED.GENADUL1 ---
HPI HPI - General Adult General Chief complaint: Recheck/Abnormal Lab/Rx Stated complaint: BREAST PAIN POST-OP Time Seen by Provider: 06/13/25 10:02 Source: patient Mode of arrival: walk-in History of Present Illness HPI narrative: Patient is a 34-year-old female presenting to the emergency department for evaluation of left breast pain. She is 2 weeks postop from a benign lumpectomy of the left breast. She has yet to follow-up with her surgeon for postoperative follow-up. She states that today she noticed increased swelling at the surgical site with some overlying bruising. She denies overlying redness or skin changes. She denies fevers or chills. No chest pain or shortness of breath. No abdominal pain, nausea, or vomiting. She denies any other systemic symptoms. Related Data Home Medications ?Medication ?Instructions ?Recorded ?Confirmed duloxetine 60 mg capsule,delayed 60 mg PO BID 06/10/23 06/13/25 release lamotrigine 25 mg tablet 100 mg PO QDAY 04/08/24 06/13/25 gabapentin 100 mg capsule 600 mg PO TID 01/23/25 06/13/25 trazodone 100 mg tablet 200 mg PO .qhs 01/23/25 06/13/25 nifedipine 30 mg tablet,extended 30 mg PO BEDTIME 06/02/25 06/13/25 release Previous Rx's ?Medication ?Instructions ?Recorded acetaminophen 300 mg-codeine 30 mg 1 tab PO Q6H PRN pain 4 days #15 06/02/25 tablet tabs Allergies Allergy/AdvReac Type Severity Reaction Status Date / Time buspirone (From BuSpar) Allergy Intermediate tachycardia Verified 06/13/25 10:05 aripiprazole (From Abilify) Allergy Unknown Verified 06/13/25 10:05 COCONUT Allergy Mild Hives Uncoded 06/13/25 10:05 Opioid HPI Opioid Management Most Recent Opioid Data: Last Pain Scale 6 Today, 10:25 Last MAR Pain Assessment Today, 10:25 Ur Phencyclidine Scrn, (NEGATIVE) Negative 07/22/24, 13:51 Review of Systems ROS Status of ROS 10 or more systems reviewed and unremarkable except as noted in history and below PFSH PFSH Social History Smoking status: Current every day smoker Little interest or pleasure in doing things: not at all Feeling down, depressed, or hopeless: several days Exam Narrative Exam Narrative: CONSTITUTIONAL: Well-appearing, answering questions and following commands appropriately SKIN: Was warm and dry. EYES: Sclerae white. EARS, NOSE, THROAT: Moist oral mucosa. RESPIRATORY: Clear to auscultation bilaterally, no wheezes, crackles, or stridor, no use of accessory muscles CARDIOVASCULAR: Normal rate and regular rhythm. There is no S3, S4, murmur, rub. GASTROINTESTINAL: Abdomen is nondistended. MUSCULOSKELETAL: No peripheral edema. NEUROLOGIC: Patient is awake and alert. BREAST: Examination of the left breast demonstrated an approximately 5 cm subcutaneous fluid collection that is soft and mobile. There is no overlying skin changes other than mild ecchymosis. The fluid collection is located at the 1 o'clock position, just under the axilla. There is no nipple retraction or nipple discharge. Constitutional Vital Signs, click to edit/add: Last Vital Signs Temp 97.9 F 06/13/25 10:09 Pulse 74 06/13/25 10:09 Resp 16 06/13/25 10:09 BP 156/96 H 06/13/25 10:09 Pulse Ox 98 06/13/25 10:09 O2 Del Method Room Air 06/13/25 10:09 Course Vital Signs Vital signs: Vital Signs Temperature 97.9 F 06/13/25 10:09 Pulse Rate 74 06/13/25 10:09 Respiratory Rate 16 06/13/25 10:09 Blood Pressure 156/96 H 06/13/25 10:09 Pulse Oximetry 98 06/13/25 10:09 Oxygen Delivery Method Room Air 06/13/25 10:09 Temperature 97.9 F 06/13/25 10:09 Pulse Rate 74 06/13/25 10:09 Respiratory Rate 16 06/13/25 10:09 Blood Pressure 156/96 H 06/13/25 10:09 Pulse Oximetry 98 06/13/25 10:09 Oxygen Delivery Method Room Air 06/13/25 10:[address] [facility] Narrative Medical decision making narrative: Patient is a 34-year-old female who is 2 weeks postoperative from a benign lumpectomy of the left breast presenting to the emergency department for swelling and pain at the surgical site. She has yet to follow-up with her surgeon. Her vital signs on arrival are within normal limits. She is afebrile and hemodynamically stable. Patient overall appears well, nontoxic. Differential diagnosis includes seroma, fat necrosis, hematoma, or other benign fluid collections. I have lower concern for an abscess, however an ultrasound was ordered to rule this out. She was given oral [place] for pain. Ultrasound of the left breast independent reviewed interpreted myself and radiology demonstrated heterogenous collection measuring 5.7 x 2.6 x 5.8 cm at the 3 o'clock position. Most likely represents a postoperative seroma or hematoma. Abscess is felt to be less likely. I do believe the patient is stable for discharge. Patient's presentation is most likely consistent with postoperative seroma. They were instructed to follow up with their surgeon for further care. Return precautions were given including any new or worsening symptoms. Patient understands and agrees to the plan. FINAL IMPRESSION: #Acute postoperative pain of the left breast, likely seroma DISPOSITION: Discharged home CONDITION: Good Imaging Data L breast ultrasound: Attestation: I personally reviewed and interpreted this imaging study as follows: Discharge Plan Discharge Chief Complaint: Recheck/Abnormal Lab/Rx Clinical Impression: Postoperative pain Patient Disposition: Home, Self-Care Time of Disposition Decision: 11:14 Condition: Good Mode of Transportation: Private Vehicle Prescriptions / Home Meds: No Action duloxetine 60 mg capsule,delayed release(DR/EC) 60 mg PO BID lamotrigine 25 mg tablet 100 mg PO QDAY gabapentin 100 mg capsule 600 mg PO TID trazodone 100 mg tablet 200 mg PO .qhs nifedipine 30 mg tablet extended release 30 mg PO BEDTIME acetaminophen-codeine 300-30 mg tablet 1 tab PO Q6H PRN (Reason: pain) 4 Days Qty: 15 0RF Print Language: Lithuanian Instructions: Pain Management After Surgery (DC) Referrals: KAYLEE AMES [Primary Care Provider, Unknown] - 1 week Discharge Date/Time: 06/13/25 11:27
== END 2025-06-13 11:27 | disposition home or self-care (01) ==
PROVIDERS: Emergency Provider Student in an Organized Health Care Education/Training Program
DX: G89.18 Other acute postprocedural pain (principal); Z98.890 Other specified postprocedural states; F17.200 Nicotine dependence, unspecified, uncomplicated
CPT/HCPCS: 76642; 99284

== ENCOUNTER 2025-07-23 06:23 | Emergency (ER) | payer MEDICARE, MEDICAID, SELFPAY ==
--- OUTSIDE RECORDS SUMMARY | 2024-08-22 03:15 | XMS_ITS ---
Author Organization [facility] es Address [address] [place] [address] Care Team Providers Care Body Repairer Name Role Phone Ilda Lloyd Primary Care Provider [phone] Raghav Walton Unavailable [phone] REASON FOR VISIT Transf. from Ana Elkins Encounters Encounter Location Date Provider Diagnosis [address] [place] [address] 2023 Raghav Walton Plan Of Treatment No Information Progress Notes * LEILA HASSAN LDOB:1990 (34 yo F)Acc No.[id number]:08/22/2024 Behavioral Health Patient: LEILA BARBOUR :?ALEX SmithPDOB:1990???Age:33 Y???Sex: FemaleDate:08/22/2024hone:[phone]:[address] [place], [place] [id number]:Ilda Lloyd Subjective: * Chief Complaints: * T ransf. from Ana Elkins Billing Information: * Procedure Codes: * Electronic signature of VANNESA Smith on 07/23/2025 at 07:31 AM ESTSign off status: Pending * Provider: VANNESA Ornelas Date: 10/23/2023 Generated for Printing/Faxing/eTransmitting on:?07/23/2025 07:31 AM EST
--- OUTSIDE RECORDS SUMMARY | 2024-08-23 05:00 | XMS_ITS ---
Author Organization [facility] es Address [address] [facility] [place] [address] Care Team Providers Care Operation Supervisor Name Role Phone Ilda Lloyd Primary Care Provider Raghav Walton Unavailable [phone] Jennifer Shaikh Unavailable [phone] REASON FOR VISIT RS FROM 08/03 Encounters Encounter Location Date Provider Diagnosis [place] [address] [place] [address] 08/23/2024 Jennifer Shaikh Plan Of Treatment No Information Progress Notes * LEILA HASSAN LDOB:1990 (34 yo F)Acc No.[id number]:08/23/2024 F/U - Patient Patient: KARIN BARBOURICA Isreal :?Jennifer DuartemDOB:1990???Age:33 Y???Sex: FemaleDate:4Phone:[phone]:[address] [place] [address]Pcp:Ilda Lloyd Subjective: * Chief Complaints: * R S FROM 08/03 Billing Information: * Procedure Codes: Care Plan Details* * Electronic signature of FRANCISCO JAVIER Romero on 07/23/2025 at 07:32 AM ESTSign off status: Pending * Provider: Crystal Shaikh Date: 1 10/24/2023 Generated for Printing/Faxing/eTransmitting on:?07/23/2025 07:32 AM EST
--- OUTSIDE RECORDS SUMMARY | 2024-09-21 07:45 | XMS_ITS ---
[facility] Organization [facility] Address [address] [facility] [place] [address] Care Team Providers Care Cigarette Vendor Name Role Phone Ilda Lloyd Primary Care Provider [phone] Raghav Walton Unavailable [phone] REASON FOR VISIT RS FROM 08/22 TRANSFER FROM Jacqueline MILLIGAN Encounters Encounter Location Date Provider Diagnosis [address] [place] [address] 2024 Raghav Walton Plan Of Treatment No Information Progress Notes * LEILA HASSAN LDOB:1990 (34 yo F)Acc No.[id number]:09/21/2024 Behavioral Health Patient: KARIN BARBOURDION Bach :?ALEX SmithPDOB:1990???Age:33 Y???Sex: FemaleDate:09/21/2024Phone:[phone]:[address] [place], [place] [id number]:Ilda Lloyd Subjective: * Chief Complaints: * R S FROM 08/22 TRANSFER FROM Jacqueline MILLIGAN Billing Information: * Procedure Codes: * Electronic signature of VANNESA Smith on 07/23/2025 at 07:32 AM ESTSign off status: Pending * Provider: VANNESA Ornelas Date: 0 09/21/2024 Generated for Printing/Faxing/eTransmitting on:?07/23/2025 07:32 AM EST
--- OUTSIDE RECORDS SUMMARY | 2024-11-08 05:00 | XMS_ITS ---
Author Organization [facility] es Address [address] [facility] [place] [address] Care Team Providers Care Cut Out Marker Name Role Phone Ilda Lloyd Primary Care Provider Raghav Walton Unavailable [phone] Jennifer Shaikh Unavailable [phone] Encounters Encounter Location Date Provider Diagnosis [address] [place] [address] 11/08/2024 Jennifer Shaikh Plan Of Treatment No Information Progress Notes * LEILA HASSAN LDOB:1990 (34 yo F)Acc No.[id number]:11/08/2024 F/U - Patient Patient: RUTH BARBOURURSULA Bach :?Jennifer GeraldmDOB:1990???Age:33 Y???Sex: FemaleDate:11/08/2024Phone:[phone]:[address] [place], [place] [id number]:Ilda Lloyd Billing Information: * Procedure Codes: Care Plan Details* * Electronic signature of FRANCISCO JAVIER Romero on 07/23/2025 at 07:32 AM ESTSign off status: Pending * Provider: Crystal Shaikh Date: 0 11/08/2024 Generated for Printing/Faxing/eTransmitting on:?07/23/2025 07:32 AM EST
--- OUTSIDE RECORDS SUMMARY | 2024-11-22 04:30 | XMS_ITS ---
Author Organization [facility] es Address [address] [facility] [place] [address] Care Team Providers Care Forklift Driver Name Role Phone Ilda Lloyd Primary Care Provider [phone] Raghav Walton Unavailable [phone] REASON FOR VISIT 1 month f/u Encounters Encounter Location Date Provider Diagnosis [address] [place] [address] 2024 Raghav Walton Plan Of Treatment No Information Progress Notes * LEILA HASSAN LDOB:1990 (34 yo F)Acc No.[id number]:11/22/2024 Behavioral Health Patient: KARIN BARBOURDION Bach :?ALEX SmithPDOB:1990???Age:33 Y???Sex: FemaleDate:11/22/2024Phone:[phone]:[address] [place], [place] [address]Pcp:Ilda Lloyd Subjective: * Chief Complaints: * 1 month f/u Billing Information: * Procedure Codes: * Electronic signature of VANNESA Smith on 07/23/2025 at 07:31 AM ESTSign off status: Pending * Provider: VANNESA Ornelas Date: 0 11/22/2024 Generated for Printing/Faxing/eTransmitting on:?07/23/2025 07:31 AM EST
--- OUTSIDE RECORDS SUMMARY | 2025-07-12 04:04 | XMS_ITS | Continuity of Care Document ---
Author Organization [facility] Address [address] [place] [address] Phone Care Team Providers Care [employer] Brake Specialist Name Role Phone Shaji Francis DO Attending Provider Jennie Durand DO Primary Care Provider Beba Keen APRN Primary Care Provider Efrem Victor MD Attending Provider Alexis Zabala MD Emergency Provider Pop Larsen DO Attending Provider Care Teams Patient Care Team Team Status: Active Member Role/Relationship Status Dates Jennie Durand DO Primary Care Provider Active Visit Care Team Team Status: Inactive Member Role/Relationship Status Dates Shaji Francis DO Attending Provider Active Start: April 26, 2025 End: April 26Antony Chavis Care ProviderActiveStart: April 26, 2025 End: April 26, 2025 Visit Care Team Team Status: Inactive Member Role/Relationship Status Dates Jennie Durand DO Primary Care Provider Active S tart: May 16, 2025 End: May 16, 2025Frangie Francis DOAttending ProviderActiveStart: May 16, 2025 End: May 16, 2025 Visit Care Team Team Status: Inactive Member Role/Relationship Status Dates Jennie Durand DO Primary Care Provider Active S tart: May 30, 2025 End: May 30, 2025Vasile Sanchez ProviderActiveStart: May 30, 2025 End: May 30, 2025 Visit Care Team Team Status: Active Member Role/Relationship Status Dates Beba Keen APRN LITIGATION EXAMINER-C Primary Care Provider Activ e Start: June 06, 2025 Natalee Banda ProviderActiveStart: June 06, 2025 Visit Care Team Team Status: Inactive Member Role/Relationship Status Dates Jennie Durand DO Primary Care Provider Active S tart: June 29, 2025 End: June 29, 2025Christin Torre ProviderActiveStart: June 29, 2025 End: June 29, 2025 Patient Care Team Team Status: Inactive Member Role/Relationship Status Dates Jennie Durand DO Primary Care Provider Active S tart: July 12, 2025 End: July 12Vasile Cardona ProviderActiveStart: July 12, 2025 End: July 12, 2025 Chief Complaint and Reason for Visit Chief Complaint Admit Date N64.89 N62 April 26, 2025 7: 45am PASH May 16, 2025 8:54am Left Breast Pseudoangiomatous Stromal Hy drocladia May 30, 2025 7:04am BH June 06, 2025 9:55am cp,dizziness,headache June 29, 2025 11:34am Dizziness July 12, 2025 8 :20am Reason for Visit Admit Date Chronic headaches July 12, 2025 8 :20am Paresthesia July 12, 2025 8 :20am Reason for Referral Type Reason(s) Provider Provider Contact Information [facility] Address Start Date You may use alternating doses of ibuprofen (Motrin) 600 mg followed 3 hours later by 2 extra strength Tylenol's, followed 3 hours later by ibuprofen 600 mg. You may continue this repeating schedule for pain management.Jhoana Sanchez Phone: [phone] [address] [address]ZifJeni Allen Phone: [phone] [facility] [place] [address] Allergies, Adverse Reactions, Alerts Allergen Type Severity Reaction Last Updated Verified Status Comments buspirone Allergy Mild Unknown Reaction July 12, 2025 8:36am Yes Active rapid heart rate aripiprazole Allergy Unknown Confusion, suicidal July 12, 2025 8:36am Yes Active Pt states it makes her suicidal. coconut Allergy Unknown Swelling of Lip/Tongue/Thr oat July 12, 2025 8:36am Yes Active Social History Smoking Status Status Start Date End Date Date of Observa tion Smokes tobacco daily (finding) June 29, 2025 12:45pm Observation Status Observation Response Date of Response Legal Sex Female (finding) Sex Assigned At BirthFemaleApril 1990Pregnancy StatusNOct2024 Family History Relationship Condition Age at Onset Recorded Date/T ankit mother Malignant neoplasm of pancreas Unknown DeceasedUnknownDiabetes mellitusUnknownHeart diseaseUnknownHistory of stroke UnknownHypertensionUnknownMalignant neoplasmUnknownfatherAmyotrophic lateral sclerosisUnknownDeceasedUnknownFamily history of mental disorderUnknownMalignant neoplasmUnknowngrandparentMalignant neoplasm of pancreasUnknownfamily member Malignant neoplasm of pancreasUnknown Problems Active Problems Problem Diagnosis/Recorded Date Onset Date Stat us MDD (major depressive disorder) August 12, 2022 10 :49am Unknown Active Borderline personality disorder January 08, 2019 7:03p m Unknown Active Palpitation August 12, 2022 10:50am Unknown Active Paresthesia July 12, 2025 8:53am Unknown Ac tive Tension headache August 21, 2022 12:09pm Unknown Active Blurry vision August 11, 2022 10:40pm Unknown Active Headache August 11, 2022 10:40pm Unknown Active Acute anxiety January 08, 2019 7:59pm Unknown Act lorenzo Bipolar 1 disorder January 08, 2019 7:03pm Unknown Active Intentional benzodiazepine overdose July 18, 2020 10:15pm Unknown Active Chronic headaches July 12, 2025 8:53am Unknown Active Inactive/Resolved Problems Problem Diagnosis/Recorded Date Onset Date Stat us Nonspecific abdominal pain August 15, 2023 2:33pm U nknown Resolved Eloped from emergency department December 10, 2023 2:36 pm Unknown Resolved Benign intracranial hypertension July 03, 2023 11 :26am Unknown Resolved Anxiety December 31, 2023 11:49am Unknown Res olved Generalized weakness September 15, 2024 5:49pm Unknown Resolved Abdominal cyst August 15, 2023 2:33pm Unknown Resolved Nausea August 15, 2023 2:33pm Unknown Re solved Hair loss September 15, 2024 5:49pm Unknown Res olved Medications Medication Status Dose Units Route Directions Qty Days Refills S tart Date Stop Date End Date Reason(s) Instructions Adherence Topiramate (Topamax) 100 mg Tablet Discontinued 100 MG PO Daily at bedtime January 08, 2019 12:00[facility] 2021 5:17pmHydroxyzine Pamoate 25 mg dtvexjuXmkhgjvpelwb06OWLLHuyua times dailyApril 2018 12:00[facility] 2019 3:27pmDuloxetine (Cymbalta) 60 mg Capsule,Delayed Release(Dr/Ec) Cggkhnqrjvyt05RSPIOdudz dailyApril 2018 12:00amSept2024 12:22pmQuetiapine (Seroquel) 50 mg HnplcfYoyavqbgpucu036LEPRKvoxq at bedtime January 08, 2019 12:00[facility] 2019 1:34amBrexpiprazole (Rexulti) 3 mg DmvzdvHkiwrnvnojlp1DBHDSgauw at bedtimeApr2018 12:00amSept2024 9:20amDuloxetine (Cymbalta) 60 mg capsule,delayed release(DR/EC)Inmodw67CT PODaily at bedtimeSept2024 12:14pmComplies with drug therapy Pantoprazole 40 mg tablet,delayed release (DR/EC)Sbeottelootz39RRZIWfvgfAdhtozvx 4th, 2020 1:00amSept2024 9:25amLorazepam 1 mg gywaleJohvqlaigwqh5MAGI Twice daily as needed for AnxietyAtrium Health2019 1:00amDeceb[facility] 2021 8:39amLisinopril 5 mg IildayLxamerjqnsmk1IGLEPivhoDrdwrbqa 6th, 2022 1:00am July 03, 2023 10:07amPromethazine 25 mg fjgtpwXmxpryrfxnuh34INREY2S as needed for Lkekzr623Ggccdntp2021 1:00amOctober 2022 10:07am Lamotrigine 100 mg emkzdrIvpyzbazmalw038IVHFMzetoVguovsroo 2nd, 2025 12:00am June 05, 2025 12:16pmbi-polarDoxycycline Hyclate 100 mg capsule Iqnfzlxrdcrd05WXPMSakxq 12 hoursSept2024 12:00amSept2024 8:25amFreeTextSi capsule Orally every 12 hrs; Note: Source Status: Not- Taking\PRN; Refills: 0; Provider: Emmanuel Robertsonfedipine 30 mg tablet extended iembrjpCvspsx54EDLBOofwk at bedtimeS2024 12:00amraynaudsComplies with drug therapyTrazodone 100 mg xsvxheMhqiuywozcxo842BZJZHpuhx at bedtime May 16, 2025 12:00amOctrobley rex va medical center 2024 8:38amFerrous Sulfate 325 mg (65 mg iron) kaczhmWcexoq11VIYAXanbfEhgkzscha 2nd, 2025 12:00amComplies with drug therapyGabapentin 600 mg tabletDiscontinuedMGSept2024 12:00am June 05, 2025 12:23pmAlbuterol Sulfate 90 mcg/actuation HFA aerosol inhalerDiscontinuedINHALATIONFour times dailySept2024 12:00amOctrobley rex va medical center 2024 12:38pmFreeTextSi puffs Inhalation 4 times a day prn; Note: Source Status: Taking; Refills: 0; Provider: Tegan Jorge AIbuprofen 600 mg dijdhfKqvzlrdycnaq316SEXYREKAN 4-6 HOURS as needed for tori4611Naezhigax 16th, 2025 12:00amOctrobley rex va medical center 2024 12:38pmdo not exceed 4 doses in a 24 hour period Gabapentin 600 mg fjuzsvCqrlcm967AADMLqexj times dailySept2024 12:17pmComplies with drug therapyQuetiapine 100 mg waakesBacydrfuqjyj290VBPP Daily at bedtimeNov2019 1:00amDece2021 8:39amTerbinafine Hcl 250 mg gleqdqTcmkgtlkgohu418NSAZRsymfGzpzqjgk 5th, 2020 1:00amNove2019 11:10amErgocalciferol (Vitamin D2) 1,250 mcg (50,000 unit) capsule Tlblrxkdfaml78755JNROXNdxaxl 2019 1:00[facility] 2021 8:39amDuloxetine 30 mg Capsule,Delayed Release(Dr/Ec)Qeyigbkayglf09RUMKGcfxm at ecxeeeo39871Rnbvvkbs2019 1:002021 8:39amTake with 60mg tablet for total of 90mgMultivitamin MosrkrLypdtg4FHWEQLajbpBafqvfxa 28th, 2022 1:00amComplies with drug therapyCalcium Carbonate 500 mg calcium (1,250 mg) IfwhmmDhqnkjmiwtov655ZRXGWnmjr dailyHealth[facility] 2021 1:00[facility] 2024 9:24amTrazodone 100 mg TurmnkYywpzhdupbmb271XSHDCtxnu at bedtimeHealthsouth [facility] 2021 1:00amOctrobley rex va medical center 2022 10:07amOxcarbazepine 150 mg tablet Efokndhrscyo72UJLIJzjyy dailyAtrium Health2021 1:00am[facility] 2022 12:45pmTopiramate (Topamax) 100 mg XcjqmrFdgoomigkvhh56XKTMQrngb ieyvg3124 August 12, 2022 5:17pmDecebanner heart hospital 2022 12:47pmAcetazolamide 500 mg capsule, extended dpbpctuEhbfwqonddms027SDNWSeprv romce442Xquztyn 2022 12:00amDece2022 12:41pmAcetazolamide 250 mg fgiqixZnpcpzlsideu666HJXV Twice daily as needed for intracranial pressure2022 1:00amApril 2023 11:59amSucralfate 1 gram kaicnpRgikijopgxim1TZIOYiqr times daily August 15, 2023 1:00amApril 2023 12:00pmDuloxetine 30 mg capsule,delayed release(DR/EC)Dshobhxscvpc39ELEWGgzun at bedtimeDece2022 1:00amApril 2023 11:59amNaltrexone Microspheres (Vivitrol) 380 mg suspension,extended rel sehocLzpostokbckp061MKVEvfewf 2022 1:00amApril 2023 12:00pmNot planning on taking it this Topiramate (Topamax) 100 mg rwdpbhJpkotlrlfgii53FUFOGkkrgGsdcgjtx 2nd, 2023 12:47pm May 16, 2025 9:25amPromethazine 25 mg ozfteaRwzgxptyarmb03BJUHB5V as needed for nausea and rndcmner448Jvwdzcdz 2nd, 2023 1:00amApril 2023 12:00pmLorazepam (Ativan) 0.5 mg tabletDiscontinued0.5MGPOThree times daily as needed for ckskzro527Hptpl 18th, 2024 12:00amSeptember 2024 9:25amAnxiety Anxiety disorder, unspecifiedSemaglutide (Ozempic) 0.25 mg or 0.5 mg (2 mg/3 mL) pen injectorDiscontinued0.5MGSUBCUTevery weekApril 2023 12:00amSeptember 2024 9:25amfor 4 weeksLamotrigine 150 mg xiohxgRmrbwu011ANHJPuhnzFlorola 2024 12:00amComplies with drug therapyLamotrigine 25 mg tabletDiscontinued 50MGPOTwice dailySeptember 2024 12:00amOctober 2024 12:39pm Cyclobenzaprine 10 mg xsfvnqEdxixhrdiwxw73RYGVVowsp times daily as needed June 05, 2025 12:00amOctober 2024 12:38pmZiprasidone Hcl 20 mg oklpdfuBrxytuiilams38LAALObogu dailySept2024 12:00amOctober 2024 8:38amgive with food (meal/snack)Chlordiazepoxide Hcl 25 mg capsule Mnfnurfxnlre71GJNXFgzas times daily as neededSept2024 12:00amOctober 2024 12:37pmPantoprazole 40 mg tablet,delayed release (DR/EC)Discontinued 40MGPODailySeptember 2024 12:00amOctober 2024 8:38amOndansetron 4 mg tablet,tgprbgjcnjtmypFmzsvpcbdnjl9AWZNVclun 8 hoursSeptember 2024 12:00am June 29, 2025 12:38pmCariprazine (Vraylar) 1.5 mg capsuleDiscontinued1.5MG PODailySeptember 2024 12:00amOctober 2024 8:37amNebivolol 5 mg udvupdAczchw6VLDHAfpbpsl 29th, 2025 12:00amComplies with drug therapy Acetazolamide 125 mg abavaaXtbimn072PYVGYjukl jhxvi782Vcsrdnj 29th, 2025 12:00am Complies with drug therapy Procedures Procedure Date Performed Status US breast LT limited April 26, 2025 7:46am co mpleted MM diagnostic mammo LT w/CAD April 26, 2025 7 :46am completed MM surgical specimen LT May 30, 2025 10: 20am completed US breast needle loc LT May 29, 2025 12: 00am completed MM diagnostic mammo LT w/CAD May 29 10:57am completed OR Breast Bx, Lumpectomy, Mass Excision (Left) S epteer 2024 9:10am completed CT head/brain wo con June 29, 2025 12:43pm completed XR chest 1V portable June 29, 2025 12:43pm completed Relevant Diagnostic Tests and/or Laboratory Data Laboratory Results Test Collection Date/Time Result Date/Time Result Interpretation Reference Range Result Comment Performing Site Corrected White Blood Count June 29, 2025 11:51am June 29, 2025 12:42pm 7.0 10*3/uL 3.8-11.[address] [place] [address] [id number] [address] [facility] [address]Fzzmdjnfyop WBC CountOctrobley rex va medical center 2024 11:51amOctrobley rex va medical center 2024 12:42pm7.0 10*3/uL3.8-11.6FOhio[facility] [id number] [address] [facility] 45348Vnx Blood CountOctrobley rex va medical center 2024 11:51amOctober 2024 12:42pm3.75 10*6/uL3.60-5.00[facility] [id number] [address] [facility] [address]PahwuyifbsXozliva 2024 11:51amOctober 2024 12:42pm 12.2 g/dL11.8-15.4FOhio [facility] [id number] [address] [place] [address] 94275VonjxnnflqTowatqt 2024 11:51amOctober 2024 12:42pm 35.6 %34.0-46.4FOhio [facility] [id number] [address] [place] [address] 01106Csti Corpuscular VolumeOctober 2024 11:51amOctober 2024 12:42pm94.9 jQ85-633AsewhiisoGalion Hospital Ctr [id number] [address] [place] [address] 40971Eiqm Corpuscular HemoglobinOctober 2024 11:51amOctober 2024 12:42pm32.4 pg24.7-34.3FOhio [facility] Surgical Hospital [facility] [id number] [address] [place] [address] 74550Cjjb Corpuscular Hemoglobin ConcentOctober 2024 11:51am June 29, 2025 12:42pm34.2 g/dL32.0-35.0[facility] [id number] [address] [place] [address]2720Uhi Cell Distribution WidthOctober 2024 11:51amOctober 2024 12:42pm15.7 %Above high unpiyt20.9-15.3FOhio [facility] Surgical Hospital [facility] [id number] [address] [place] [address] 48139Hmvltvsh CountOctober 2024 11:51amOctober 2024 12:67mp835 10*3/dW425-417OhpiycrvfGalion Hospital Ctr [id number] [address] [place] [address] 33563Dfla Platelet VolumeOctober 2024 11:51amOctober 2024 12:42pm8.8 fL6.3-10.7FOhio Valley Surgical Hospital [facility] [id number] [address] [place] [address] 74864Mkudprta Distribution WidthOctober 2024 11:51amOctober 2024 12:42pm17.75 %0.00-20.00[facility] [id number] [address] [facility] [address]Baikmxyupjr (%) (Auto)June 29, 2025 11:51amOctober 2024 12:42pm60.6 %.[facility] [id number] [address] [facility] 156[address]Oopdwfvbihc (%) (Auto)June 29, 2025 11:51amOctober 2024 12:42pm27.8 %.[facility] [id number] [address] [facility] 476[address]Wdnmdhyvb (%) (Auto)June 29, 2025 11:51amOctober 2024 12:42pm8.4 %.[facility] [id number] [address] [facility] 44266Bxjgrpmamqt (%) (Auto)June 29, 2025 11:51amOctober 2024 12:42pm2.2 %.[facility] [id number] [address] [facility] 32279Guudsrnnx (%) (Auto)June 29, 2025 11:51amOctober 2024 12:42pm1.0 %.[facility] [id number] [address] [facility] 52395Zxpbvbjjh RBC Relative Count (auto)June 29, 2025 11:51am June 29, 2025 12:42pm0.2 /100{WBC}0-0.5FOhio [facility] Surgical [facility] [id number] [address] [facility] 84523Sqcszqjmjuo # (Auto)June 29, 2025 11:51amOctober 2024 12:42pm4.2 10*3/uL1.8-7.7FOhio [facility] Surgical [facility] [id number] [address] [facility] 73572Waqfckbgsou # (Auto)June 29, 2025 11:51amOctober 2024 12:42pm1.9 10*3/uL1.00-4.8[facility] [id number] [address] [facility] 26172Noatpyesn # (Auto)June 29, 2025 11:51amOctober 2024 12:42pm0.6 10*3/uL0.0-0.8[facility] [id number] [address] [facility] 43441Dzqpgknqopo # (Auto)June 29, 2025 11:51amOctober 2024 12:42pm0.2 10*3/uL0.0-0.45[facility] [id number] [address] [facility] 06174Nzrorxddh # (Auto)June 29, 2025 11:51amOctober 2024 12:42pm0.1 10*3/uL0.0-0.2FOhio [facility] Surgical [facility] [id number] [address] [facility] 30604Crjik ColorOctober 2024 1:24pmOctober 2024 1:35pm Light-yellowYellowGalion Hospital Ctr [id number] [address] [place] [address] 49383Tseyh AppearanceOctober 2024 1:24pmOctober 2024 1:35pmClearClearGalion Hospital Ctr [id number] [address] [place] [address] 65313Aqjha Specific GravityOctober 2024 1:24pmOctober 2024 1:35pm1.0071.001-1.030[facility] [id number] [address] [place] [address] 14661Qxqle pHOctober 2024 1:24pmOctober 2024 1:35pm7.0 5.0-9.0[facility] [id number] [address] [place] [address] 18273Pqraj Leukocyte EsteraseOctober 2024 1:24pmOctober 2024 1:35pmNegativeNegativeGalion Hospital Ctr [id number] [address] [place] [address] 12956Uddkr NitriteOctober 2024 1:24pmOctober 2024 1:35pm NegativeNegativeGalion Hospital Ctr [id number] [address] [facility] 65486Zduau ProteinOctober 2024 1:24pmOctober 2024 1:35pm Negative mg/dLNegativeGalion Hospital Ctr [id number] [address] [facility] 87308Uzyje Glucose (UA)June 29, 2025 1:24pmOctober 2024 1:35pmNormal mg/dLNormalGalion Hospital Ctr [id number] [address] [facility] 30929Zjxio KetonesOctober 2024 1:24pmOctober 2024 1:35pm NegativeNegativeGalion Hospital Ctr [id number] [address] [facility] 19491Kdnjh UrobilinogenOctober 2024 1:24pmOctober 2024 1:35pmNormal mg/dLNormalGalion Hospital Ctr [id number] [address] [facility] 25663Mbyxu BilirubinOctober 2024 1:24pmOctober 2024 1:35pmNegativeNegativeGalion Hospital Ctr [id number] [address] [place] [address] 88942Qslxg Occult BloodOctober 2024 1:24pmOctober 2024 1:35pmNegativeNegMarietta [facility] [id number] [address] [facility] 15955Iraxsrd LevelOctober 2024 11:51amOctober 2024 1:03pm85 mg/qM99-836DMN recommended reference rangeRandom Glucose Reference Range is dependent on time and content of last meal. Glucose of more than 200 mg/dL in a nonstressed, ambulatory subject supports the diagnosisof Diabetes Mellitus.[facility] [id number] [address] [facility] 64148Jqlfm Urea NitrogenOctober 2024 11:51amOctober 2024 1:03pm8 mg/dL7-25[facility] [id number] [address] [place] [address] 29972HttephwwdiBwuotte 2024 11:51amOctober 2024 1:03pm 0.60 mg/dL0.60-1.20[facility] [id number] [address] [facility] 86790Uuulmbmpy GFR (CKD-EPI)June 29, 2025 11:51amOctober 2024 1:03pm> 60.0 mL/MinGalion Hospital Ctr [id number] [address] [facility] 29165Daifpo LevelOctober 2024 11:51amOctober 2024 1:03pm 139 mmol/T505-595ViudpqvtkGalion Hospital Ctr [id number] [address] [facility] 28166Ksrrxepfz LevelOctober 2024 11:51amOctober 2024 1:03pm3.5 mmol/L3.5-5.1FOhio Valley Surgical Hospital [facility] [id number] [address] [place] [address] 51905Vjmxpztv LevelOctober 2024 11:51amOctober 2024 1:42or034 mmol/LAbove high sfowyj75-008DzjrqdsrlGalion Hospital Ctr [id number] [address] [facility] 74211Fnpwgb Dioxide LevelOctober 2024 11:51amOctober 2024 1:03pm24.8 mmol/L21.0-31.0[facility] [id number] [address] [facility] 21754Ngsve GapOctober 2024 11:51amOctober 2024 1:03pm9.7 mEq/L6.0-15.0[facility] [id number] [address] [place] [address] 78717Hcybwht LevelOctober 2024 11:51amOctober 2024 1:03pm9.0 mg/dL8.6-10.3FOhio Valley Surgical Hospital [facility] [id number] [address] [place] [address] 80548Dfqgr ProteinOctober 2024 11:51amOctober 2024 1:03pm6.6 g/dL6.4-8.9[facility] [id number] [address] [place] [address] 27912CmumkfcGjxnmcc 16th, 2025 11:51amOctober 2024 1:03pm4.1 g/dL3.5-5.7FOhio Valley Surgical Hospital [facility] [id number] [address] [place] [address] 85106OdechjlhIyhedam 16th, 2025 11:51amOctober 2024 1:03pm2.5 g/dLGalion Hospital Ctr [id number] [address] [place] [address] 44339Kyvcmem/Globulin RatioOct2024 11:51amOctober 2024 1:03pm1.6FOhio Valley Surgical Hospital [facility] [id number] [address] [place] [address] 49012Spmvt BilirubinOct2024 11:51amOct2024 1:03pm0.4 mg/dL0.3-1.0[facility] [id number] [address] [place] [address] 74524Yzyawygat Amino Transf (AST/SGOT)June 29, 2025 11:51am June 29, 2025 1:03pm18 U/Q94-95AopmejdboGalion Hospital Ctr [id number] [address] [place] [address] 64177Xlfbcdx Aminotransferase (ALT/SGPT)June 29, 2025 11:51am June 29, 2025 1:03pm13 U/L7-52[facility] [id number] [address] [place] [address] 93324Sddmqvua PhosphataseOct2024 11:51amOct2024 1:03pm59 U/S26-941IzagnetmgGalion Hospital Ctr [id number] [address] [place] [address] 97604Vvqut Creatine KinaseOct2024 11:51amOct2024 1:00pm79 U/R42-351EznlzyzayGalion Hospital Ctr [id number] [address] [place] [address] 28651Kjsjzlns I High SensitivityOct2024 11:51amOct2024 1:05pm< 3 ng/L0-15The Troponin units of report have been changed to meet the Chest Pain Accreditation requirement, element EC5.M1l2. Troponin units are changed from pg/ml to ng/L. Also, the decimal is removed and results are in whole numbers.[facility] [id number] [address] [place] [address] 39002Khbubszi Creatinine Clearance (ChemOctober 2024 11:51am June 29, 2025 1:59at162.30[facility] [id number] [address] [place] [address] 74179 Diagnostic Imaging Reports Author Denny Escalante [facility] GlenbeighAuthoredAuunm cancer centert 2024 10:09amReportDictated Date/TimeDictated ByStatusRadiology ReportAuunm cancer centert 2024 10:09amWill ZamanompleteSelect Medical Specialty [facility] [place] [address] [place], [place] [address] Ultrasound Report Signed Patient: Shazia Chou MR#: [id number] : 1990 Acct:[id number] Age/Sex: 34 / F ADM Date: 5 Loc: [place] Room: Type: [facility] Attending Dr: Shaji Francis DO Ordering Provider: Shaji Francis DO Date of Service: 04/26/25 MM/MM diagnostic mammo LT w/CAD: follow up for Left breast Upper outer quadrant ([id number]) US/US breast LT limited: follow with mamm upper outer quadrant Copies to: Shaji Francis DO~ DIAGNOSTIC LEFT MAMMOGRAM - FULL FIELD [...] Escalante M.D. 04/26/2025 10:15 AM Dictation Location: [facility] Tech: Shazia Mullen; Elena Vaughn Transcribed By: MARKY 04/26/25 1015 Dictated By: Denny Escalante MD 04/26/25 1009 Signed By: <Electronically signed by Denny Escalante MD in [place]> 04/26/25 1015 Author Clinton Hadley [facility] GlenbeighAuthoredSeptember 2024 11:31amReport Dictated Date/TimeDictated ByStatusRadiology ReportSeptember 2024 11:31am Tez NavasSelect [facility] [address] Ultrasound Report Signed Patient: Shazia Chou MR#: [id number] : 1990 Acct:[id number] Age/Sex: 34 / F ADM Date: 5 Loc: [place] Room: Type: [facility] Attending Dr: Shaji Francis DO Ordering Provider: Shaji Francis DO Date of Service: 05/29/25 US/US breast needle loc LT: LEFT U/S GUIDED RADIOACTIVE SEED LOC ([id number]) MM/MM diagnostic mammo LT w/CAD: POST U/S RADIOACTIVE SEED LOC Copies to: Shaji Francis DO~ Ultrasound radioactive seed localization 7 cm needle [...] Hadley M.D. 05/29/2025 11:38 AM Dictation Location: [facility] Tech: Molly Lloyd; Violetta Price Transcribed By: MARKY 05/29/25 1138 Dictated By: Clinton Hadley DO 05/29/25 1131 Signed By: <Electronically signed by Clinton Hadley DO in [place]> 05/29/25 1138 Author Denny Escalante [facility] GlenbeighAuthoredSeptember 2024 2:08pmReport Dictated Date/TimeDictated ByStatusRadiology ReportSeptember 2024 2:08pm Denny Escalante [facility] [address] [place] [address] Mammography Report Signed Patient: Shazia Chou MR#: [id number] : 1990 Acct:[id number] Age/Sex: 34 / F Adm Date: 5 Loc: [place] Room: Type: [facility] Attending Dr: Shaji Francis DO Ordering Provider: Shaji Francis DO Date of Service: 05/30/25 Procedure(s): MM surgical specimen LT Accession Number(s): ([id number]) MM/MM surgical specimen LT: POST LUMPECTOMY Copies to: Jennie Landrum DO~ CLINICAL INFORMATION: [Left] breast lumpectomy. SPECIMEN RADIOGRAPH: [...] Denny Escalante MD in [place]> 05/30/25 1410 Author Raoul Newton [facility] 2024 1:26pmReportDictated Date/TimeDictated ByStatusRadiology ReportOctrobley rex va medical center 2024 1:26pmRaoul Newton Jr [facility] [place] [id number] XRay Report Signed Patient: Shazia Chou MR#: [id number] : 1990 Acct:[id number] Age/Sex: 34 / F ADM Date: Loc: ER Room: Type: PRE ER Attending Dr: Copies to: Alexis Zabala MD~ Ordering Provider: Alexis Zabala MD Date of Service: 06/29/25 XR/XR chest 1V portable: Dizziness SINGLE VIEW CHEST CLINICAL HISTORY: Dizziness weakness confusion head pressure COMPARISON: Chest 09/15/2024 FINDINGS: Heart normal in size. Lungs are clear. No free air. XR/XR chest 1V portable IMPRESSION: NO ACUTE FINDINGS Impression dictated by: Raoul Newton Jr. DEusebioOEusebio 06/29/2025 1:26 PM Dictation Location: RADIO-PC-22 Transcribed By: MARKY 06/29/25 1326 Dictated By: Raoul Newton Jr, DO 06/29/25 1326 Signed By: <Electronically signed by Raoul Newton Jr, DO in OV> 06/29/25 1326 Author Raoul Newton [facility] 2024 1:27pmReportDictated Date/TimeDictated ByStatusRadiology ReportOctrobley rex va medical center 2024 1:27pmRaoul Newton Jr [facility] [place] [id number] CT Scan Report Signed Patient: Shazia Chou MR#: [id number] : 1990 Acct:[id number] Age/Sex: 34 / F ADM Date: Loc: ER Room: Type: PRE ER Attending Dr: Copies to: Alexis aZbala MD~ Ordering Provider: Alexis Zabala MD Date of Service: 06/29/25 CT/CT head/brain wo con: jhgv CT BRAIN WITHOUT CONTRAST: CLINICAL HISTORY: Dizziness weakness confusion and head pressure for 3 days COMPARISON: CT brain 09/15/2024 TECHNIQUE: Contiguous axial unenhanced images were obtained through the brain. This CT exam was performed using one or more following dose reduction techniques: Automated exposure control, adjustment of the mA and/or kV according to patient size, or use of iterative reconstruction technique. FINDINGS: There is no evidence of midline shift, intra or extra-axial fluid collection, hemorrhage or CT evidence of stroke. Optic nerve changes as seen on the prior study suggestive of the patient's history of pseudotumor cerebri. Posterior fossa appears unremarkable. Visualized intraorbital contents demonstrate no acute findings. Visualized paranasal sinuses are clear. The surrounding soft tissues are normal. CT/CT head/brain wo con IMPRESSION: NO ACUTE INTRACRANIAL ABNORMALITY. Impression dictated by: Raoul Newton Jr., DEusebioOEusebio 06/29/2025 1:29 PM Dictation Location: [place] [id number] Transcribed By: [facility] 06/29/25 1329 Dictated By: Raoul Newton Jr, DO 06/29/25 1327 Signed By: <Electronically signed by Raoul Newton Jr, DO in OV> 06/29/25 1329 Vital Signs Vital Reading Result Reference Range Collection Date/Time Height 67 [in_i] May 30, 2025 7:58roEjekru30.00 kgSeptember 2024 7:55amBody Awvfgtfvame49.9 [degF]97.6-99.0Sept2024 10:18amHeart Rate66 /min 60-100Sept2024 10:55amRespiratory rate16 /xug87-34Dgytvuxkk 16th, 2025 10:55amOxygen saturation by Pulse putjhpll10 %95-100Sept2024 10:55amBP Vnfcssnd490 mm[Hg]100-140September 2024 10:55amBP Qrjwatdnr37 mm[Hg]60-100September 2024 10:55amInhaled oxygen flow rate8 L/minSeptember 2024 9:47piSwbqjz68 [in_i]June 29, 2025 12:17hdAvnmix91.00 kgOctober 2024 12:38pmBody Tvwwxtfikgb90.3 [degF]97.6-99.0October 2024 12:40pmHeart Rate60 /xpu31-845Kuwwndl 16th, 2025 12:40pmRespiratory rate18 /min 12-24Oct2024 12:40pmOxygen saturation by Pulse flvoqzxv081 %95-100 June 29, 2025 12:40pmBP Cycptuye722 mm[Hg]100-140Oct2024 12:40pm BP Upzrpbrsk84 mm[Hg]60-100Oct2024 12:40pmOxygen saturation by Pulse epyyitei42 %95-100Octrobley rex va medical center 2024 8:35am Advance Directives Advance Directive Response Recorded Date/ Time Advance Directives No January 08 019 7:21pm Insurance Providers Guarantor Shazia Chou Address [address] [place], [place] [address]ontact Info.Home Phone: Coverage Status Update:2025 Payer Group Member ID Coverage Type Subscriber Relationship to Subscriber Effective Date Expiration Date Medicaid [id number] L Rabatin Id: [id number] [address] [place], [place] [address] Home Phone: Email: [email or web address] [id number] L Rabatin Id: [id number] [address] [place], [place] [address] Home Phone: Email: [email or web address] MCR PFFS Unknown Id: [id number] L Rabatin Id: [id number] [address] [facility] [address] Home Phone: Email: [email or web address] MCR PFFS [id number] L Rabatin Id: [id number] [address] [facility] [address] Home Phone: Email: [email or web address] [employer] MCR PFFS Id: [id number] L Rabatin Id: [id number] [address] [facility] [address] Home Phone: Email: [email or web address] [email or web address] Encounter Location(s) Arrival/Admit Date Discharge/Departure Date Discharge/Departure Disposition Provider(s) [facility]ed [facility] April 26, 2025 7:45am April 26, 2025 7:46am Discharged to home care or self care (routine discharge) Shaji Francis DO Departed Referred -Pre-Surgica l Testing May 16, 2025 8:54am May 16, 2025 8:55am Discharged to home care or self care (routine discharge) Shaji Francis DO Departed Surgical Day Care -[facility] May 30, 2025 7:04am May 30, 2025 11:04am Discharged to home care or self care (routine discharge) Shaji Francis DO Registered Recurring -[facility] June 06, 2025 9:55am ZORAN Bandaeparted Emergency-Emergency RoomOctober 2024 11:34amOctober 2024 2:04pmDischarged to home care or self care (routine discharge)Departed Physician/Provider Office Visit-[facility] July 12, 2025 8:20amOctober 2024 9:03amDischarged to home care or self care (routine discharge)Su Fernando DO Recent Diagnosis Onset Date Admit Date Chronic headaches Unknown July 12, 2025 8:20am Paresthesia Unknown July 12 8:20am Assessments Diagnosis Onset Date Resolution Status Admit Date Chronic headaches acuteOctober 2024 8:20amParesthesiaacuteOctober 2024 8:20am Plan of Treatment Author Pop Larsen [facility]ighAuthoredOctrobley rex [facility] 2024 8:56amIt is my impression that the patient has a chronic headache disorder. This has been going on for many years. She did have MRI of the brain in 2021 along with MR venogram which were unremarkable other than question of increased intracranial pressure. Lumbar puncture on August 19 was unremarkable with an opening pressure of 23 cm of CSF. Repeat MRI of the brain in December 2024 showed stable findings of intracranial hypertension. CT and CT angiography were also obtained in September 2024 and were unremarkable for occlusion, aneurysm, dissection or stenosis. Patient does feel her headaches and dizziness are worsening and previously was on Diamox and thought it was quite helpful. Plan: We can resume Diamox and low-dose. Despite the normal CSF opening pressure, the MRI is somewhat suggestive of elevated intracranial pressure and certainly, as the patient felt this was helpful before, open to restarting it at low-dose. Side effects discussed in detail and patient understands and wishes to proceed. Patient has ongoing complaints of paresthesias in the left upper and lower extremities. We did have an EMG of the lower extremities in June 2023 that was unremarkable. We also checked labs including CK myoglobin and antinuclear antibodies which were unremarkable in September 2024. At her last visit, due to the worsening and persistent symptoms, we obtained an EMG of the left upper and lower extremities on 09/27/2024 which was normal. Plan: Monitor clinically May be related to fibromyalgia Suggest continued lifestyle modification and proper sleep habits Future Tests Future scheduled test information is unavailable Pending Tests Pending diagnostic test information is unavailable Future Visits Future appointment information is unavailable Future Procedures Procedure Name Ordered Date Scheduled Date Post Anesthesia Tracer order May 30 8:14am May 30, 2025 8:15am Discharge Order May 30, 2025 10:01am Sep tember 2024 10:01am Future Medications Future medication information is unavailable Patient Instructions Instruction Admit Date Know your Meds May 30, 2025 7:04am Headache in adults - ED discharge instru ctions June 29, 2025 11:34am Goals Acute Goals Author Authored Date Experience reduced anxiety * Identifies current stressors * Develops effective coping behaviors * [facility] 20[facility] 11:04amRemain free of complications [facility] 2024 11:04amUnderstand preop/postop care/sensations * Verbalizes understanding of surgical procedure * Verbalizes understanding of sensations following surgery * Verbalizes understanding of post-op treatment planL[facility] 2024 11:04amReport pain at tolerable level * Uses pain scale appropriately * Identify options for pain control - Analgesics - Narcotics - Non-medication measuresC[facility] 2024 11:04amAbsence of imbalanced fluid volume s/s [facility] 2024 11:04amAbsence of physical injury [facility] 11:04amAbsence of surgical site infection [facility] 20[facility] 11:04am
[2025-07-23 06:32] VITALS: BP 153/105; PULSE 70; TEMP 36.7; O2SAT 100; BMI 30.5
[2025-07-23] MEDS: DEXAMETHASONE SOD PHOS 10 MG/ML VIAL IM (07:19)
[2025-07-23] MEDS: CETIRIZINE HCL 10 MG TABLET PO (07:20)
--- OUTSIDE RECORDS SUMMARY | 2025-07-23 07:32 | XMS_ITS | Clinical Summary ---
Author Organization [facility] Address [address] [place] [address] Care Team Providers Care Weapons Mechanic Name Role Phone Camilo Yolande Lehman OLAP DEVELOPER Unavailable [phone] Pop Larsen DO Unavailable [phone] Unallocated, Noms Provider MD Primary Care Provi andres Allergies Active AllergyReactionsCriticalityNoted BjwdZbvsrakbUdbsmehutiey71/19/2024 OxijegclkYfenwoscuftgSlw81/08/2025Coconut (Cocos Nucifera)01/31/2024 Medications MedicationSigDispense QuantityRefillsLast FilledStart DateEnd DateStatus ziprasidone (Geodon) 20 MG capsule Take 20 mg by mouth in the morning and 20 mg in the evening. Take with meals. Active ondansetron (Zofran) 4 MG tablet Take by mouthActive DULoxetine (Cymbalta) [address] capsule Take 90 mg by mouth at bedtimeActive pantoprazole (Protonix) 40 MG EC tablet Take 40 mg by mouth DailyActive topiramate (Topamax) 25 MG tablet Take 25 mg by mouth in the morning and 25 mg before bedtime.Active traZODone (Desyrel) 100 MG tablet Take 100 mg by mouth at bedtimeActive Multiple Vitamins-Minerals (multivitamin with minerals) tablet Take 1 tablet by mouth DailyActive ferrous sulfate 325 (65 Fe) MG tablet Take 325 mg by mouth in the morning. Take with meals.Active cyclobenzaprine (Flexeril) 10 MG tablet 5Active Ferrous Sulfate (IRON PO) Take by mouthActive NIFEdipine CC (Adalat CC) 30 MG 24 hr tablet Take 30 mg by mouth Daily03/15/2025tive Vraylar 1.5 MG capsule Take 1 capsule by mouth DailyActive chlordiazePOXIDE (Librium) 25 MG capsule Take 25 mg by mouth 3 (three) times a day as needed for anxietyActive ondansetron ODT (Zofran-ODT) 4 MG disintegrating tablet DISSOLVE 1 TABLET ON THE TONGUE ONCE EVERY 4 HOURS NEEDED FOR NAUSEA AND VOMITING FOR 3 DAYS04/12/2025tive gabapentin (Neurontin) 600 MG tablet Take 600 mg by mouth in the morning and 600 mg in the evening and 600 mg before bedtime.01/13/2025tive lamoTRIgine (LaMICtal) 150 MG tablet Take 1 tablet by mouth Daily06/06/2025tive lamoTRIgine (LaMICtal) 25 MG tablet Take 50 mg by mouth in the morning and 50 mg before bedtime.07/03/2025 Discontinued(Therapy completed) gabapentin (Neurontin) 300 MG capsule Take 1 capsule by mouth in the morning and 1 capsule in the evening and 1 capsule before bedtime.Discontinued(Therapy completed) Active Problems ProblemNoted DateDiagnosed AshiTmcqpubx87/01/2025Pseudoangiomatous stromal hyperplasia of thovtc2904/13/2025lcohol abuse12/22/2024Difficulty walking 12/22/2024Headache after spinal zftqihkl08/10/2025Internal derangement of left knee12/22/2024Iron deficiency ndogqq6212/22/2024 Overview (12/22/2024): noted in 09/16/2024 [facility] Records page 5. added per OP CDI policy. Muscle weakness-zekjjej9012/22/2024Sinus tarsi syndrome of right ankle12/22/2024 Tarsal tunnel /10/2025urrent gzfduk9108/08/2024 Overview (12/22/2024): Added secondary to documentation in Social History. Family history of ischemic heart swmjmdm3708/08/2024MI 29.0-29.9,adult08/08/2024 Dobqjpwemzpi03/25/2024Shortness of xnuljm4008/08/2024Family history of cancer 03/08/2024Family history of pancreatic kvinxr9003/08/2024History of hysterectomy 03/08/2024Left breast mass03/08/20244073Jmongrie21/19/5344Ihjepqgw70/19/2024Ulnar /19/2024Other chronic pain01/31/2024Headache, unspecified headache type01/31/2024 Overview (01/31/2024): Patient has significant headaches which started a couple of weeks ago and prompted this evaluation.She has recently resumed topiramate. I'm concerned that this may interfere with the quality of the lumbar puncture diagnostically. As such, I recommend she stop this until after the procedure. Kreonqtnjfs52/19/2024 Overview (01/31/2024): Clinical exam finding mandating lumbar puncture as above. Also need to have ophthalmology evaluation. Visual qboaphhfmdw74/19/2024 Overview (01/31/2024): See above. Tension type wkioaiqj67/19/2024 Overview (01/31/2024): Patient has had an increase in overall headaches recently. She has stopped alcohol abuse 90 days ago and recently had oxcarbazepine, gabapentin, Cyclobenzaprine and topiramate stopped as well. I suspect her headaches are related to this and she is also on vivitrol PLAN - Suggest continued abstinence from alcohol and street drugs. . consider trigger points IIH (idiopathic intracranial hypertension)01/31/2024 Overview (01/31/2024): The patient was having peripheral [...] papilledema. PLAN: monitor clinically History of substance abuse01/31/2024 Overview (01/31/2024): Patient did have a recent relapse with alcohol over the [place] holidays but is 17 days sober again today and back on vivitrol. She does have a history of significant psychiatric disease. I strongly suggested she follow closely with psychiatry in order to further help control the symptoms long-term. Yzookgoadqsx87/19/2024 Overview (01/31/2024): It is my impression that [...] Plan: EMG of the bilateral lower extremities Yerdeosohul13/19/2024Chronic alcoholism in qpoozlyjl02/22/2024Cyst of pancreas 3Bipolar affective disorder in vkenddivr24/27/2023Low iron05/27/2023H/O foot hfwkohg40/09/2023Primary vuxyrqmrejqi13/09/2023Intestinal malabsorption 11/19/2022History of gastric cekcbq4901/07/2021Vitamin D wemtabbpdf26/14/2020 Bilateral foot pain05/23/2020Borderline personality euvqfyol62/09/2020Flat feet 05/23/2020Gastroesophageal reflux disease without khhwewanljb41/09/2020History of nicotine use05/23/2020Anxiety and vpukcieimb45/02/2184Ffreyvvjf48/02/2020Poor growth, affecting management of mother, antepartum condition or complication ([facility])07/03/2008cute yssxashzjhx31/20/2003Streptococcal sore dlcfem6212/01/2002Abdominal pain06/13/2002Acute suppurative otitis media without spontaneous rupture of ear drum06/13/2002Educational vyoktrmwykbv14/30/2002 Lrcbelt0206/13/2002Sprain of ankle12/06/2001 Encounters DateTypeDepartmentCare FetbYeqtileyjik36/20/2025 1:45 PM EDTOffice Visit [facility] [address] [place] [address] Sarah Franz MD [facility] (idiopathic intracranial hypertension) (Primary Dx); Loss of part of visual field; Papilledema associated with increased intracranial nxoysmqt44/20/2025amboo [facility]sheet [facility] [address] [place] [address] Sarah Franz MD 07/03/20257672Mjvtlc40/16/2025 11:30 AM EDTOffice Visit [facility] [address] [place] [address] [facility] [address] [place] [address] Shaji Francis H, DO Hematoma (Primary Dx); Pseudoangiomatous stromal hyperplasia of jyhaew3506/29/20258716Ttfoni16/09/2025Travel 06/14/2025 2:45 PM EDTOffice Visit [facility] [address] [place] [address] [facility] [address] [place] [id number] Shaji Francis H, DO Hematoma (Primary Dx); Pseudoangiomatous stromal hyperplasia of ysxrry5906/14/20250273Rbutyn63/24/2025Orders Only [facility] [address] [place] [address] [facility] [address] [place] [address] Shaji Francis H, DO 06/05/20255413Zkzanr40/18/2158Oywpny67/16/2025External Result Encounter [facility] Unsolicited Shaji Francis H, DO 05/29/2025External Result Encounter [facility] External [facility] Unsolicited Shaji Francis H, DO 05/18/20256862Bfmmwx79/21/2025 9:45 AM EDTOffice Visit [facility] [address] [place] [address] [address] [place] [address] Shaji Francis, DO Pseudoangiomatous stromal hyperplasia of breast (Primary Dx)08/21/2025Travelfrom Last 3 Months Family History Medical HistoryRelationNameCommentsALSFatherDiabetesMotherAmyHyperlipidemia MotherAmyHypertensionMotherAmyOvarian cancerMotherAmyPancreatic cancerMotherAmy StrokeMotherAmyBreast cancerNeg HxColon cancerNeg HxRelationNameStatusComments Brother2 brothersFatherDeceasedMotherAmyDeceasedSiblingAliveSister0 sisters Social History Tobacco UseTypesPacks/DayYears UsedDateSmoking Tobacco: Every DayCigarettes1.525 Smokeless Tobacco: Never Tobacco Cessation:Ready to Q uit: Not Asked; Counseling Given: Not Answered Alcohol UseStandard Drinks/WeekCommentsYes4 (1 standard drink = 0.6 oz pure alcohol)AUDIT-CAnswerDate RecordedQ1: How often do you have a drink containing alcohol?4 or more times a week01/31/2024Q2: How many drinks containing alcohol do you have on a typical day when you are drinking?3 or Q3: How often do you have six or more drinks on one occasion?Never01/31/2024Comments UnknownSex and Gender InformationValueDate RecordedSex Assigned at BirthNot on fileLegal XreWbjjiq70/15/2023 6:39 PM EDTGender IdentityNot on fileSexual OrientationNot on file Last Filed Vital Signs Vital SignReadingTime TakenCommentsBlood Vrbhaqlu283/7006/29/2025 11:08 AM EDT Khfcg513004/09/2025 10:45 AM GUMCpbwpalwxwk34.6 ??C (96.1 ??F)04/09/2025 10:45 AM EDTRespiratory Rate--Oxygen Fspdahgyec11%04/09/2025 10:45 AM EDTInhaled Oxygen Concentration--Cpijwh29.5 kg (195 lb)06/29/2025 11:08 AM SLRHwcazo486.2 cm (5' 7 )06/29/2025 11:08 AM EDTBody Mass Index30.5406/29/2025 11:08 AM EDT Plan of Treatment Health MaintenanceDue DateLast DoneCommentsMedicare Annual Wellness (AWV) 1988Pneumococcal Vaccine: Pediatrics (0 to 5 Years) and At-Risk Patients (6 to 64 Years) (1 of 2 - PCV)12/18/2007COVID-19 Vaccine (3 - 2024- season) /, 04/08/2021Influenza Vaccine (#1)/05/2020, 07/09/2020 Procedures Procedure NamePriorityDate/TimeAssociated DiagnosisCommentsOCT, OPTIC NERVE - OU - BOTH TFTISzugbda55/20/2025 2:44 PM EDT IIH (idiopathic intracranial hypertension) CARRIZALES VISUAL FIELD - OU - BOTH ZPHORvniswo36/20/2025 2:44 PM EDT IIH (idiopathic intracranial hypertension) BI MAMMOGRAM DIAGNOSTIC LEFT05/30/2025 2:08 PM EDT GENERAL EURZNZFGCLwifzig77/16/2025 9:28 AM EDTBI US GUIDED BREAST LOCALIZATION AND BIOPSY LEFT05/29/2025 11:31 AM EDT BI MAMMOGRAM DIAGNOSTIC TOMOSYNTHESIS KLVUMyrvngo21/13/2025 10:09 AM EDT Pseudoangiomatous stromal hyperplasia of breast Hypertrophy of breast from Last 3 Months Results * OCT, Optic Nerve - OU - Both Eyes (07/03/2025 2:44 PM EDT)Anatomical Region LateralityModalityHeadOptical Coherence Tomography Narrative 07/03/2025 2:44 PM EDT Right Eye To assess optic nerve function and for use in future follow-up. Reliability: good and adequate. Left Eye To assess optic nerve function and for use in future follow-up. Reliability: good and adequate. Authorizing ProviderResult TypeResult StatusSarah Franz MDOPHTH TOMOGRAPHY Final Result * Carrizales Visual Field - OU - Both Eyes (07/03/2025 2:44 PM EDT)Anatomical RegionLateralityModalityHeadVisual Field Narrative 07/03/2025 2:44 PM EDT Right Eye Reliability was good. Progression has no prior data. Foveal threshold was normal. Findings include normal observations. Left Eye Reliability was good. Progression has no prior data. Foveal threshold was normal. Findings include normal observations. Authorizing ProviderResult TypeResult StatusSarah Franz [facility] VISUAL FIELD Final Result * Left diagnostic mammogram (05/30/2025 2:08 PM EDT)Anatomical RegionLaterality ModalityBreastLeftMammographySpecimen (Source)Anatomical Location / Laterality Collection Method / VolumeCollection TimeReceived Time05/30/2025 2:08 PM EDT Narrative 05/30/2025 2:12 PM EDT [facility] ?[address] ?[place] [address] ?? [phone] ? Mammography Report ? Signed ? Patient: Shazia Chou L ?MR#: [id number] ?? [id number] ? : 1990 ?Acct:[id number] ? Age/Sex: 34 / F ?Adm Date: /16/25 ? Loc: [place] ?Room: ?Type: DEP SDC ?? Attending Dr: Shaji Francis DO ? Ordering Provider: Shaji Francis, DO ? Date of Service: 05/30/ ? Procedure(s): MM surgical specimen LT ?? Accession Number(s): ([id number]) MM/MM surgical specimen LT: POST LUMPECTOMY ? Copies to: Jennie Durand DO ?? Shaji Francis, DO ? CLINICAL INFORMATION: [Left] breast lumpectomy. ? SPECIMEN RADIOGRAPH: ? A single radiograph of the [left] breast specimen showed a metallic marking clip and radioiodine seed within the specimen. ? The images were reviewed by the attending physician during the procedure. ? Impression dictated by: Denny Escalante M.D. ??05/30/2025 2:10 PM ? Dictation Location: RADIO-PC-23 ? Dictated By: ?Denny Escalante MD ? 05/30/25 1408 ? Signed By: <Electronically signed by Denny Escalante MD in OV> ? 05/30/25 1410 Procedure Note Radiology, Radiologist, - 05/30/2025 [facility] [address] [facility] [address] [place] [address] Mammography Report Signed Patient: Shazia Chou LMR#: [id number] : 1990Acct:[id number] Age/Sex: 34 / FAdm Date: 05/30/25 Loc: [place] Room:Type: [facility] Attending Dr: Shaji Francis DO Ordering Provider: Shaji Francis DO Date of Service: 05/30/25 Procedure(s): MM surgical specimen LT Accession Number(s): ([id number]) MM/MM surgical specimen LT: POSTLUMPECTOMY Copies to: Jennie Durand DO Shaji Francis DO CLINICAL INFORMATION: [Left] breast lumpectomy. SPECIMEN RADIOGRAPH: A single radiograph of the [left] breast specimen showed a metallicmarking clip and radioiodine seed within the specimen. The images were reviewed by the attending physician during the procedure. Impression dictated by: Denny Escalante M.D. 05/30/2025 2:10 PM Dictation Location: [place] [address] Dictated By: Denny Escalante MD 05/30/25 1408 Signed By: <Electronically signed by Denny Escalante MD in OV> 05/30/25 1410 Authorizing ProviderResult TypeResult StatusFrangie Francis DOIMG BI PROCEDURESFinal Result * GENERAL PATHOLOGY (05/30/2025 9:28 AM EDT) Narrative Authorizing ProviderResult TypeResult StatusFrradharic Jonathan Francis DOCLINISYNCFinal Result * Left US-guided breast localization and biopsy (05/29/2025 11:31 AM EDT) Anatomical RegionLateralityModalityBreastLeftUltrasoundSpecimen (Source) Anatomical Location / LateralityCollection Method / VolumeCollection Time Received Time05/29/2025 11:31 AM EDT Impressions 05/29/2025 11:41 AM EDT Successful radioactive seed localization. ?? RESULT CODE: NL ? Impression dictated by: Clinton Hadley M.D. ??05/29/2025 11:38 AM ? Dictation Location: DWS01 ? Tech: Molly Lloyd; Violetta Dee ? Transcribed By: ? PWS ?05/29/25 1138 ? Dictated By: ?Clinton Hadley DO ?05/29/25 1131 ? Signed By: <Electronically signed by Clinton Hadley, DO in OV> ? 05/29/25 1138 Narrative 05/29/2025 11:41 AM EDT [facility] ?[address] ? [place] [address] ? Ultrasound Report ? Signed ? Patient: Shazia Chou ?MR#: [id number] ?? [id number] ? : 1990 ?Acct:[id number] ? Age/Sex: 34 / F ?ADM Date: 05/30/25 ? Loc: [place] ?Room: ?Type: DEP SDC ?? Attending Dr: Shaji Francis DO ? Ordering Provider: Shaji Francis, DO ?? Date of Service: 05/29/25 ?? US/US breast needle loc LT: LEFT U/S GUIDED RADIOACTIVE SEED LOC ?? ([id number]) MM/MM diagnostic mammo LT w/CAD: POST U/S RADIOACTIVE SEED LOC ? Copies to: Shaji Francis, DO ? Ultrasound radioactive seed localization ? 7 cm needle utilized. ? Local lidocaine administration and Sterile technique utilized. ??The needle advanced to the area of concern. ? . ??The needle tip positioned near the area of concern. ??Radiation seed was administered. ??Needlewas removed. ??There is no complication. ? The seed is adjacent to the biopsy marking clip. ? Patient expressed no immediate complications and discharged in satisfactory condition. ? The dosage of the radiation seed is 0.118 mCi. ? US/US breast needle loc LT ?? Procedure Note Radiology, Radiologist, - 06/01/2025 [facility] [place] [address] Ultrasound Report Signed Patient: Shazia Chou LMR#: [id number] : 1990Acct:[id number] Age/Sex: 34 / FADM Date: 05/30/25 Loc: [place] Room:Type: [facility] Attending Dr: Shaji Francis DO Ordering Provider: Shaji Francis DO Date of Service: 05/29/25 US/US breast needle loc LT: LEFT U/S GUIDED RADIOACTIVE SEED LOC ([id number]) MM/MM diagnostic mammo LT w/CAD: POST U/S [...] [facility]ENTER Tech: Molly Price Transcribed By: PWS 05/29/25 1138 Dictated By: Clinton Hadley DO 05/29/25 1131 Signed By: <Electronically signed by Clinton Hadley DO in OV> 05/29/25 1138 Authorizing ProviderResult TypeResult StatusFredric Jonathan Buijaniskandisraúl DOIMG PROCEDURESEdited Result - Final * Left diagnostic mammogram with tomosynthesis (04/26/2025 10:09 AM EDT) Anatomical RegionLateralityModalityBreastLeftMammographySpecimen (Source) Anatomical Location / LateralityCollection Method / VolumeCollection Time Received Time04/26/2025 10:09 AM EDT Impressions 04/26/2025 10:20 AM EDT NO MAMMOGRAPHIC EVIDENCE OF MALIGNANCY. ? SURGICAL MANAGEMENT OF BIOPSY-PROVEN/KNOWN PASH ? NO RETROAREOLAR ABNORMALITY TO CORRESPOND TO REPORTED NIPPLE INVERSION. CLINICAL CORRELATION RECOMMENDED. ? ROUTINE FOLLOW-UP IS RECOMMENDED IN ONE YEAR. ? RESULT CODE: 1 ? Negative ? DENSITY CODE: 3 (approximately 51-75% glandular) The breasts are heterogeneously dense, which may obscure small masses. ? FOLLOW UP: 1YR ? The false-negative rate of mammography is approximately 10-percent. ? Management of a palpable abnormality must be based on clinical grounds. ? Impression dictated by: Denny Escalante M.D. ??04/26/2025 10:15 AM ? Dictation Location: S01 ? Tech: Shazia Paz; Elena Vaughn ? Transcribed By: ? PWS ?04/26/25 1015 ? Dictated By: ?Denny Escalante MD ?04/26/25 1009 ? Signed By: <Electronically signed by Denny Escalante MD in OV> ? 04/26/25 1015 Narrative 04/26/2025 10:20 AM EDT [facility] ?[facility] ?[address] ? [place] [address] ? Ultrasound Report ? Signed ? Patient: Rabatin,Shazia L ?MR#: [id number] ?? [id number] ? : 1990 ?Acct:[id number] ? Age/Sex: 34 / F ?ADM Date: 04/26/25 ? Loc: [place] ?Room: ?Type: REG CLI ?? Attending Dr: Shaji Francis DO ? Ordering Provider: Shaji Francis, DO ?? Date of Service: 04/26/25 ?? MM/MM diagnostic mammo LT w/CAD: follow up for Left breast Upper outer quadrant ?? ([id number]) US/US breast LT limited: follow with mamm upper outer quadrant ? Copies to: Shaji Francis, DO ? DIAGNOSTIC LEFT MAMMOGRAM - FULL FIELD DIGITAL WITH TOMOSYNTHESIS/targeted breast ultrasound ? CLINICAL DATA: ??PASH, pain ? Craniocaudal and mediolateral oblique views of the left breast were obtained using low-dose digital technique. ??Comparison is made to prior studies from outside facility 07/11/2024. ??This examination was reviewed with the aid of CAD. ? Heterogeneous dense breast tissue. There are no dominant masses, typically malignant calcifications or architectural distortion. Focal asymmetry 1:00 left breast with posterior depth with biopsy clip noted ? Targeted ultrasound left breast 1:00 demonstrates focal area of atypical echogenicity 15 cm nipple 2 x 3 x 1 cm in size in size. Biopsy clip is not identified on the ultrasound images. ? Additional imaging was obtained at the level nipple which demonstrates no focal abnormality. ? Imaging obtained at the site of pain 1:00 15 cm from nipple demonstrates no suspicious abnormality and corresponds to the site of previously biopsied abnormality.. ? US/US breast LT limited ?? Procedure Note Radiology, Radiologist, - 04/26/2025 [facility] [address] [place] [address] Ultrasound Report Signed Patient: Shazia Chou LMR#: [id number] : 1990Acct:[id number] Age/Sex: 34 / FADM Date: 04/26/25 Loc: [place] Room:Type: [facility] Attending Dr: Shaji Francis DO Ordering Provider: Shaji Francis DO Date of Service: 04/26/25 MM/MM diagnostic mammo LT w/CAD: follow up forLeft breast Upper outer quadrant ([id number]) US/US breast LT limited: follow with mamm upper outerquadrant Copies to: Shaji Francis DO DIAGNOSTIC LEFT MAMMOGRAM - FULL FIELD DIGITAL WITH TOMOSYNTHESIS/targetedbreast ultrasound CLINICAL DATA: PASH, pain Craniocaudal and mediolateral oblique views of the left breast wereobtained using low-dose digital technique. Comparison is made to prior studies from outside zrwelpyi78/28/2024. This examination was reviewed with the aid [...] Location: [facility] Tech: Shazia Vaughn Transcribed By: MARKY 04/26/25 1015 Dictated By: Denny Escalante MD 04/26/25 1009 Signed By: <Electronically signed by Denny Escalante MD in OV> 04/26/25 1015 Authorizing ProviderResult TypeResult StatusFredric H Itnabil DOIMG BI PROCEDURESFinal Result from Last 3 Months Insurance MemberSubscriberPlan / Payer (Effective 2024-Present)Name:Shazia Chou Relation to Subscriber:SelfName:Shazia Chou Payer ID:Not on file Group ID:[id number] Type:Not on file Address: [address] [place] [phone] Care Teams Team MemberRelationshipSpecialtyStart DateEnd Date Unallocated, Noms Provider, [address] [place] [address] PCP - GeneralFamily Medicine04/13/25 Yolande Page, OLAP DEVELOPER [place] [phone] [place] [address] 09/21/24 Pop Larsen DO [place] [phone] [place] [id number] Referring PhysicianNeurolog09/27/24
--- OUTSIDE RECORDS SUMMARY | 2025-07-23 07:32 | XMS_ITS | Clinical Summary ---
Author Organization [employer] tem Address [id number] [address] [place] [address] Care Team Providers Care Process Development Associate Name Role Phone Ben [facility] Primary Care Pr ovider Allergies Active AllergyReactionsCriticalityNoted TlcrYahuermeYpcqztqVuziyobr36/10/2020 Bupropion Hcl07/16/2021 Medications MedicationSigDispense QuantityRefillsLast FilledStart DateEnd DateStatus DULoxetine (CYMBALTA) 60 mg capsule Take 90 mg by mouth nightly.Active LORazepam (ATIVAN) 1 mg tablet Take 1 mg by mouth every 8 (eight) hours as needed for anxiety.Active topiramate (TOPAMAX) 100 mg tablet Take 100 mg by mouth nightly.Active QUEtiapine (SEROquel) 100 mg tablet Take 100 mg by mouth nightly.Active NON FORMULARY Rexalti 3 mg oral nightly Active pantoprazole (PROTONIX) 20 mg EC tablet Take 20 mg by mouth nightly.Active cholecalciferol, vitamin D3, 50,000 units tablet Take 50,000 Units by mouth once a week.Active cyclobenzaprine (FLEXERIL) 10 mg tablet Take 1 tablet (10 mg total) by mouth 3 (three) times a day as needed for muscle spasms. 30 tablet 07/27/2020Active Additional Information Patient not taking.Reported on 07/16/2021 ALPRAZolam (XANAX) 0.5 mg tablet Active Active Problems No known active problems Family History Medical HistoryRelationNameCommentsALSFatherCancerFatherbladderHypertension FatherHeart diseaseMaternal GrandfatherCancerMaternal GrandmotherkidneyHeart diseaseMaternal GrandmotherCancerMotherstage 4 pancreaticDiabetesMotherHeart diseaseMotherHypertensionMotherStrokeMotherCancerPaternal Grandfatherpancreatic Drug abusePaternal GrandfatherHypertensionPaternal GrandfatherStrokePaternal GrandfatherRelationNameStatusCommentsFatherAliveMaternal GrandfatherDeceased Maternal GrandmotherAliveMotherDeceasedPaternal GrandfatherDeceasedPaternal GrandmotherDeceased Social History Tobacco UseTypesPacks/DayYears UsedDateSmoking Tobacco: Every DayCigarettes Smokeless Tobacco: NeverAlcohol UseStandard Drinks/WeekCommentsYes0 (1 standard drink = 0.6 oz pure alcohol)rarePHQ-2AnswerDate RecordedTotal Hxlqg71809/23/2019 ChildcareAnswerDate YzmzjloeOwijwhaneLfdmdug59/30/2020EmploymentAnswerDate LyigvfkmOscshqnsstNfkxanf75/30/2020Purpose - LifeAnswerDate RecordedPurpose and direction in fxehTyeirtr76/11/2021CommentsNoSex and Gender Information ValueDate RecordedSex Assigned at BirthNot on fileLegal CznFxdipi36/30/2020 1:22 PM EDTGender IdentityNot on fileSexual OrientationNot on file Last Filed Vital Signs Vital SignReadingTime TakenCommentsBlood Gcftaeom396/80109/15/2020 9:44 AM EDT Prenk577707/16/2021 9:44 AM RNONedpmbadokv48 ??C (96.8 ??F)07/27/2020 11:31 AM EST Respiratory Suls381109/26/2019 12:38 PM ESTOxygen Hcweufuqyt84%07/27/2020 12:38 PM ESTInhaled Oxygen Concentration--Vsjotw71.7 kg (206 lb 9.6 oz)07/16/2021 9:44 AM CNDOpjrxk157.2 cm (5' 7 )07/16/2021 9:44 AM EDTBody Mass Index32.36109/15/2020 9:44 AM EDT Plan of Treatment Health MaintenanceDue DateLast DoneCommentsDepression Ufcirvqhb70/05/2001Tobacco Qseayrkzm73/05/2001Adult BMI Oxffkpipi28/05/2007DTaP,Tdap and Td Vaccines (1 - Tdap)12/18/2007Pap Smear2009COVID-19 Vaccine (3 - season) 508/, 04/08/2021Influenza Jzcysmt92/, 07/09/2020 Medical Devices ImplantedTypeAreaManufacturerDevice IdentifierShelf Expiration DateModel / Serial / LotAnch Sut 4.75mm 2 Healicoil - [id number] - [id number] Implanted:Qty: 1 on 07/27/2020 by Octavio Sims DPM at [facility] Medial: AnkleSmith & Osfbvv37/23/[id number] / [id number] / [id number] Im 52mm 5.5mm 4 Hl Hi Rt - [id number] - [id number] Implanted:Qty: 1 on 07/27/2020 [facility]: FootPARAGON 28 [id number] / [id number] / NAPg Fx 3.5mm 18mm Thrd Phntm - [id number] - [id number] Implanted:Qty: 1 on 07/27/2020 by Octavio Sims DPM at [facility] ImplantRight: FootPARAGON 28 [id number] / [id number] / NAPg Fx 3.5mm 16mm Thrd Phntm - [id number] - [id number] Implanted:Qty: 1 on 07/27/2020 by Octavio Sims DPM at [facility] ImplantRight: FootPARAGON 28 [id number] / [id number] / NAPg Fx 3.5mm 12mm Antirotation - [id number] - [id number] Implanted:Qty: 1 on 07/27/2020 by Octavio Sims DPM at [facility] ImplantRight: FootPARAGON 28 [id number] / [id number] / [id number] Cellular Bone Matrix Implanted:Qty: 1 on 07/27/2020 by Octavio Sims DPM at [facility] Lateral: AnklePARAGON 28 [id number] / [id number] / [id number] 3-D Wedge Implanted:Qty: 1 on 07/27/2020 by Octavio Sims DPM at [facility] Lateral: AnklePARAGON 28 [id number] / [id number] / [id number] Insurance Care Teams Team MemberRelationshipSpecialtyStart DateEnd Date Him, [address] [address] PCP - Vtanrib07/27/21
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
--- OUTSIDE RECORDS SUMMARY | 2025-07-23 07:32 | XMS_ITS | Clinical Summary ---
Author Organization [facility] Address [address], [address] [place] [address] Care Team Providers Care Customer Service Sales Consultant Name Role Phone Jennie Durand DO Primary Care Provider [phone] Allergies Active AllergyReactionsCriticalityNoted SdciAcuituysNpjmajnlkxuw72/13/2023 Hjmjicblu31/02/2021oconut (Cocos Nucifera)DwiglfzLbuxqi91/04/2020Coconut Flavoring Agent (Non-Screening)CplbfcovaenBfyl90/26/2020 coconut Medications MedicationSigDispense QuantityRefillsLast FilledStart DateEnd DateStatus varenicline (CHANTIX) 1 MG tablet as hmoarl2008/27/2021ctive traZODone (DESYREL) 100 MG tablet as kdbaex7510/29/2022ctive Multiple Vitamins-Minerals (MULTI-DAY PLUS MINERALS PO) Take by mouth07/01/2021ctive DULoxetine (CYMBALTA) 60 MG extended release capsule Take 1 capsule by mouth in the morning and at bedtime Patient states she takes at 5pm10/13/2023ctive ferrous sulfate (IRON 325) 325 (65 Fe) MG tablet Take 1 tablet by mouth daily (with breakfast) 30 tablet ctive gabapentin (NEURONTIN) 300 MG capsule Take 1 capsule by mouth 3 times daily.5Active lamoTRIgine (LAMICTAL) 100 MG tablet Take 1 tablet by mouth daily5Active gabapentin (NEURONTIN) 600 MG tablet Take 1 tablet by mouth.5Active VRAYLAR 1.5 MG capsule Take 1 capsule by mouth daily04/22/2025Active Semaglutide-Weight Management (WEGOVY) 0.25 MG/0.5ML SOAJ SC injection Indications:Class 1 obesity due to excess calories without serious comorbidity with body mass index (BMI) of 32.0 to 32.9 in adultInject 0.6 mg into the skin every 7 days 2 mL 5Active ondansetron (ZOFRAN) 4 MG tablet Take 1 tablet by mouth every 8 hours as needed for Nausea or Vomiting 30 tablet 5Active Active Problems Patient Care Coordination No te Formatting of this note is d ifferent from the original. Post -op Bariatric Summary Procedure: Bypass Surgeon:Dr. Vickers HT: Date Weight Labs Ordered Labs Resulted Notes Initial Wt 05/09/20 272lb Day of Surgery 01/07/21 259lb 1 Wk Post-op 01-18-21 255 5 Wk Post-op 03/06/21 236 y 3 Mon Post-op 04-24-21 222 y Completed at [facility]- will request 6 Mon Post-op 07-24-21 204 [...] 196 01/13/24 202 ? 01/18/25 205 ? ProblemNoted DateDiagnosed DateLow iron05/27/2023Intestinal malabsorption 11/19/2022Overweight (BMI 25.0-29.9)2Obesity (BMI 30-39.9)07/24/2021 Status post gastric bypass for ukabhca6701/07/2021Vitamin D wgwxqqjude51/14/2020 History of nicotine use05/23/2020Gastroesophageal reflux disease without xufxynwpchd26/09/2020Borderline personality yiiwphmi71/09/2020Flat feet 05/23/2020Bilateral foot pain05/23/2020Anxiety and jmfnanmmbm21/02/2020Bipolar disease, vpldrwk2705/16/20206565Ladnhgjnu08/02/2020 Resolved Problems ProblemNoted DateDiagnosed DateResolved HljgAwjwlriundv49/08/202309/ Omental jjfoiorhkd77/20/202109/Intra-abdominal hqyrlqq6301/30/2021 05/27/20230031Vbniymumzps37/15/202106/Morbid obesity with BMI of 40.0-44.9, adultGastroesophageal reflux disease with esophagitis without bcjqhcnxai70/13/2023Hiatal datbmm8407/24/2021 Family History Medical HistoryRelationNameCommentsCancerFatherOtherFatherALSCancerMotherstage 4 pancreaticDiabetesMotherHigh Blood PressureMotherStrokeMotherRelationNameStatus CommentsFatherAliveMotherAlive Social History Tobacco UseTypesPacks/DayYears UsedDateSmoking Tobacco: Every DayCigarettesLast attempted to quit: 03/14/2020Smokeless Tobacco: Current Tobacco Cessation:Ready to Q uit: Not Asked; Counseling Given: Not Answered Alcohol UseStandard Drinks/WeekCommentsYes0 (1 standard drink = 0.6 oz pure alcohol)rareAUDIT-CAnswerDate RecordedQ1: How often do you have a drink containing alcohol?Never09/28/2020verage Number of DrinksNot on file09/28/2020 Frequency of Binge DrinkingNot on file09/28/2020Interpersonal Safety Domain Source: IP Abuse ScreeningAnswerDate RecordedRead-Only, Retired: Physical Abuse Qozbbz1809/18/2023ead-Only, Retired: Verbal SzhyxCdyyvy19/05/2024ead-Only, Retired: Emotional kwpbpNhuege48/05/2024ead-Only, Retired: Financial Abuse Wemvrf4009/18/2023ead-Only, Retired: Sexual wkzwoMommzq52/05/2024Comments NoSex and Gender InformationValueDate RecordedSex Assigned at BirthFemale 11/29/2024 9:44 AM EDTLegal ZmgGnbfew32/30/2020 11:40 AM EDTGender IdentityNot on fileSexual OrientationNot on file Last Filed Vital Signs Vital SignReadingTime TakenCommentsBlood Ogcgtweq088/8205 1:40 PM EDT Qluve7290/07/2025 1:40 PM FRKSnibdgklqeu83.2 ??C (97.1 ??F)09/18/2023 8:24 AM ESTRespiratory Hzij370310/13/2023 1:00 PM ESTOxygen Duaaexmnhc89%01/18/2025 1:40 PM EDTInhaled Oxygen Concentration--Uqokmp45.1 kg (203 lb)01/18/2025 1:40 PM EDT Ocmpyg879.2 cm (5' 7 )01/18/2025 1:40 PM EDTBody Mass Index31.7901/18/2025 1:40 PM EDT Plan of Treatment Health MaintenanceDue DateLast DoneCommentsDepression Rpbhdnnvkt44/05/2001 Varicella vaccine (1 of 2 - 13+ 2-dose series)2001HIV mlzriq7412/18/2003 Hepatitis C ftlyjd8012/17/2006DTaP/Tdap/Td vaccine (1 - Tdap)12/18/2007Hepatitis B vaccine (1 of 3 - 19+ 3-dose series)12/18/2007Pneumococcal 0-49 years Vaccine (1 of 2 - PCV)12/18/2007Pap smear2009Cervical cancer zgwfoc2912/17/2018HPV (without or with Pap)2018Annual Wellness Visit (Medicare)12/01/2024Flu vaccine (#1)51COVID-19 Vaccine (3 - 2024- season)2025 04/29/2021, 1A1C test (Diabetic or Prediabetic)Vvtmxporfjjo71/29/2023, 03/19/2023, 07/18/2022, Additional history existsHPV vaccine (No Doses Required) CompletedHepatitis A vaccineAged OutNo longer eligible based on patient's age to complete this topicHib vaccineAged OutNo longer eligible based on patient's age to complete this topicMeningococcal (ACWY) vaccineAged OutNo longer eligible based on patient's age to complete this topicMeningococcal B vaccineAged OutNo longer eligible based on patient's age to complete this topicPolio vaccineAged OutNo longer eligible based on patient's age to complete this topic Procedures Procedure NamePriorityDate/TimeAssociated DiagnosisCommentsHEMOGLOBIN H5JLqvjkwx 08/12/2023 7:45 AM EST Gastroesophageal reflux disease without esophagitis Anxiety and depression Status post gastric bypass for obesity Overweight (BMI 25.0-29.9) Low iron Vitamin D deficiency from Last 3 Months or Most Recently Relevant to Health Maintenance Results * Hemoglobin A1C (08/12/2023 7:45 AM EST)ComponentValueRef RangeTest Method Analysis TimePerformed AtPathologist SignatureHemoglobin A1C5.64.0 - 6.0 % 08/12/2023 7:45 AM ESTMERCY LABORATORIESEstimated Avg Kuzibyy847vw/dL 08/12/2023 7:45 AM ESTMERCY LABORATORIESComment: The ADA and AACC recommend providing the estimated average glucose result to permit better patient understanding of their HBA1c result. Specimen (Source)Anatomical Location / LateralityCollection Method / Volume Collection TimeReceived TimeBLOOD SPECIMEN / Gwpzrwb7708/12/2023 7:45 AM EST 08/12/2023 7:46 AM EST Narrative Authorizing ProviderResult TypeResult StatusSheri Isreal Chan STEEL FABRICATING SUPERVISOR - CNPCHEMISTRY ORDERABLESFinal ResultPerforming OrganizationAddressCity/State/ZIP CodePhone Number [facility] [address] [place], [place] [address] [phone] [facility] [address] [id number] [phone] from Last 3 Months or Most Recently Relevant to Health Maintenance Insurance on file Advance Directives * Full Code (Latest Code Status on File) Date ActivatedDate InactivatedComments01/31/2021 11:30 PM02/01/2021 12:23 PM * Full Code Date ActivatedDate InactivatedComments01/07/2021 12:20 PM01/08/2021 8:31 PM Care Teams Team MemberRelationshipSpecialtyStart DateEnd Date Jennie Durand DO [address] [place] [phone] [facility]CP [facility]11/19/22
--- OUTSIDE RECORDS SUMMARY | 2025-07-23 07:32 | XMS_ITS | Clinical Summary ---
Author Organization [facility] Address [address] [facility] [place] [address] Care Team Providers Care Pm Technician Name Role Phone Unavailable Primary Care Provider Unavailabl e Source Comments The following information is NOT included in Care Everywhere downloads:Psychiatric notes, ECG results, Cardiac Rehab notes, Pulmonary Function notes, data from [facility] (includes but not limited toPregnancy data,audiograms, eye exams, pre-surgical evaluation notes, well-child exam data).[facility] Allergies Active AllergyReactionsCriticalityNoted DateCommentsNo Known Drug Allergies 11/12/2000Pencils [Other]11/12/2000 rash Soap11/12/2000 rash Medications MedicationSigDispense QuantityRefillsLast FilledStart DateEnd DateStatus trazodone 50 MG tablet Take 50 mg by mouth at bedtime.Active paroxetine (PAXIL) 30 MG tablet Take 30 mg by mouth daily.Active ClonazePAM (KLONOPIN WAFER) 0.25 MG TBDP Take 0.25 mg by mouth 2 times daily.Active triamcinolone 0.1 % ointment Apply topically 2 times daily. Apply thin layer red, rough, itchy areas for 2 weeks. Avoid face, armpit, groin 90 g Active Active Problems ProblemNoted DateDiagnosed DateAcute qyjmmplgbwi21/20/2003Streptococcal sore qwjhwy0312/01/2002Acute suppurative otitis media without spontaneous rupture of ear drum06/13/20027228Zqxlpeq87/30/2002Abdominal pain06/13/2002Educational yorssfirnwaj45/30/2002Sprain of ankle12/06/2001 Immunizations ImmunizationAdministration DatesNext DueHep B (peds/adol, 3-dose) (CVX=08) 11/12/2000MMR, Xxkatax-Kawue-Akyecid (CVX=03)11/12/2000 Family History Medical HistoryRelationNameCommentsGood healthBrotherGood healthFather HypertensionMaternal GrandfatherSeizure DisorderMaternal Grandfather?ETIOLOGY HypertensionMaternal GrandmotherHypertensionMotherLung DiseaseMotherCHRONIC BRONCHITISDiabetes MellitusPaternal GrandfatherNIDDM. Takes oral medication HypertensionPaternal GrandfatherSkin ConditionSisterEczemaRelationNameStatus CommentsBrotherFatherMaternal GrandfatherMaternal GrandmotherMotherPaternal GrandfatherSister Social History Tobacco UseTypesPacks/DayYears UsedDateSmoking Tobacco: Smoker, Current Status UnknownAlcohol UseStandard Drinks/WeekCommentsNot Asked0 (1 standard drink = 0.6 oz pure alcohol)Sexually ActiveBirth ControlPartnersCommentsNeverSubstance Use TypesUse/WeekCommentsNot AskedCommentsNoSex and Gender InformationValue Date RecordedSex Assigned at BirthNot on fileLegal LbfUpwgga15/04/2012 9:12 AM ESTGender IdentityNot on fileSexual OrientationNot on file Last Filed Vital Signs Vital SignReadingTime TakenCommentsBlood Hxiusjom041/7502 4:44 PM EST Thaqt731911/01/2015 4:44 PM INMWuhqamegmtk96.4 ??C (99.4 ??F)11/01/2015 4:44 PM ESTRespiratory Endj238505/17/2013 5:14 PM EDTOxygen Ikjuldfawh00%11/01/2015 4:44 PM ESTInhaled Oxygen Concentration--Scttvo95.9 kg (149 lb 12.8 oz)12/01/2002 9:45 AM JYAMnhyts628.2 cm (5' 7 )11/01/2015 4:44 PM ESTBody Mass Index-- Plan of Treatment Health MaintenanceDue DateLast DoneCommentsMammography (shared decision-making, age 35-39)1988Hepatitis B (HBV) Vaccine (2 of 3 - 3-dose series)12/10/2000 11/12/2000HIV Test12/18/2003Hepatitis C Bxxqrzrh00/05/2007Tdap Rxtdntt0312/17/2006 Hepatitis A (HAV) Vaccine (optional start 19+ years)12/18/2007Pap Smear 2009HPV Vaccine (optional start 27-45 years)12/18/2015COVID-19 Vaccine ( - 2024- season)2025Influenza Vaccine (#1)2025Shingles (RZV) Vaccine (1 of 2)2038MammographyDiscontinuedPneumococcal Vaccine(s)Aged Out No longer eligible based on patient's age to complete this topic Insurance * Guarantor: Shazia Chou TypeRelation to PatientDate of BirthPhone Billing UgoxcdmCwcwnfiicrhaaFdts66/05/1991 [address] [place] [address]
--- OUTSIDE RECORDS SUMMARY | 2025-07-23 07:32 | XMS_ITS | Clinical Summary ---
Author Organization [facility] Address [address] [place] [address] Care Team Providers Care Top Inventory Control Executive Name Role Phone Nilo Prado MD Unavailable Lisha Worthington HAM PUMPER.STRING WINDING MACHINE OPERATOR Unavailable Allergies Active AllergyReactionsCriticalityNoted DateCommentsAripiprazoleMental Status Change,Other: See Comments,Peypykk83/06/9031IntirckqyKjjdqtp97/02/2021Coconut WglwuveuOim09/09/2023 Medications MedicationSigDispense QuantityRefillsLast FilledStart DateEnd DateStatus waibwszknoqg-fdw-ihmo-FA-vit K (BARIATRIC MULTIVITAMINS) 45 mg iron- 800 mcg-120 mcg cap Take by mouth.Active traZODone (DESYREL) 50 mg tablet Take 50 mg by mouth daily at bedtime.Active varenicline (CHANTIX) 0.5 mg (11)- 1 mg (42) tablet Take 0.5 mg by mouth once daily on Days 1 through 3, THEN 0.5 mg twice daily on Days 4 through 7, THEN 1 mg twice daily on Day 8 and thereafter 42 tablet 03/08/2024ctive Additional Information Patient not taking.Reason: Discontinued by Patient, Reported on 07/25/2024 DULoxetine (CYMBALTA) 60 mg capsule Indications:Bipolar affective disorder in remission (HCC),Borderline personality disorder (HCC),Anxiety disorder, unspecified typeTake 1 capsule by mouth two times a day.03/08/2024ctive ondansetron orally disintegrating (ZOFRAN ODT) 4 mg disintegrating tablet Take 1 tablet by mouth every 8 hours as needed for nausea/vomiting. 30 tablet 07/25/2024ctive lamoTRIgine (LAMICTAL) 25 mg tablet Indications:Bipolar affective disorder in remission (HCC),Borderline personality disorder (HCC),Anxiety disorder, unspecified typeTAKE 2 TABLETS BY MOUTH TWICE A DAY 360 tablet 5Active Active Problems ProblemNoted DateDiagnosed DateLeft breast mass03/08/2024Family history of pancreatic huqbdi5303/08/2024Family history of vindpt7503/08/2024History of zdukjylxczvu73/25/2024anic kthggara68/25/2024History of substance abuse 01/31/2024 Overview (03/08/2024): Patient did have a recent relapse with alcohol over the holidays but is 17 days sober again today and back on vivitrol. She does have a history of significant psychiatric disease. I strongly suggested she follow closely with psychiatry in order to further help control the symptoms long-term. Borderline personality /22/2024hronic alcoholism in remission 01/04/2024yst of /30/2023ipolar affective disorder in remission 06/10/2023Idiopathic intracranial cnjbrqkooifk71/09/7774Kzznzrjxty41/09/2023Hx of gastric hnwjwa4911/20/2022H/O foot taukyet3911/20/2022nxiety disorder, gkwtmtduzqu59/20/2022History of nicotine use05/23/2020 Resolved Problems ProblemNoted DateDiagnosed DateResolved DatePlantar zedsrbrpr57/25/2024 03/08/2024Obesity, Class III, BMI 40-49.9 (morbid obesity)/ Primary ehlwwcxgdpwb56/09/202306/oor growth, affecting management of mother, antepartum condition or Immunizations ImmunizationAdministration DatesNext Duehepatitis B (HepB) vaccine, 3-dose series, age 0 yr - 19 yr (ENGERIX B-PEDS, RECOMBIVAX HB-PEDS)11/12/2000influenza (IIV4) vaccine, age 6 mo - 64 yr, quadrivalent, PF (AFLURIA, FLUARIX, FLULAVAL, FLUZONE)07/09/2020influenza (LAIV) vaccine, nasal, unspecified formulation 07/09/2020influenza vaccine, unspecified coqvaoqzqir23/26/2020measles mumps rubella (MMR) vaccine (M-M-R II, PRIORIX)11/12/2000 Family History Medical HistoryRelationCommentsAnxiety disorderBrother 2ALSFatherBlood Clots FatherCancerFatherbladderHeart AttackMaternal GrandfatherCervical CancerMaternal GrandmotherhysterectomyHeart diseaseMaternal GrandmotherRenal Cell Cancer Maternal GrandmotherCervical CancerMotherhysterectomyDiabetesMotherHypertension MotherPancreatic CancerMotherStrokeMothermini strokePancreatic CancerPaternal GrandfatherAutismSonRelationStatusCommentsBrother 1AliveBrother 2AliveFather DeceasedMaternal GrandfatherDeceasedMaternal GrandmotherAliveMotherDeceased Paternal GrandfatherDeceasedPaternal GrandmotherDeceasedSonAlive Social History Tobacco UseTypesPacks/DayYears UsedDateSmoking Tobacco: Every HdxBcmkbpbfto297 Smokeless Tobacco: Never Tobacco Cessation:Ready to Q uit: Not Asked; Counseling Given: Not Answered Alcohol UseStandard Drinks/WeekCommentsYes0 (1 standard drink = 0.6 oz pure alcohol)13 days sober- 07/04/2024HC UtilitiesAnswerDate RecordedIn the past 12 months has the [employer], gas, oil, or water etrigg threatened to shut off services in your home?No03/02/2024Social Connection and Isolation PanelAnswer Date RecordedIn a typical week, how many times do you talk on the phone with family, friends, or neighbors?More than three times a week03/02/2024How often do you get together with friends or relatives?Never03/02/2024How often do you attend yarsani or sabianist services?Never03/02/2024o you belong to any clubs or organizations such as yarsani groups, unions, fraternal or athletic groups, or school groups?No03/02/2024How often do you attend meetings of the clubs or organizations you belong to?Never03/02/2024re you , , , , never , or living with a partner?Fubnzbb3103/02/2024UDIT-C AnswerDate RecordedQ1: How often do you have a drink containing alcohol?Patient wwjtolba09/19/2024Q2: How many drinks containing alcohol do you have on a typical day when you are drinking?Patient swtqpcaw82/19/2024Q3: How often do you have six or more drinks on one occasion?Never03/02/2024Overall Financial Resource Strain (CARDIA)AnswerDate RecordedHow hard is it for you to pay for the very basics like food, housing, medical care, and heating?Not very hard 03/02/2024HQ-2AnswerDate RecordedPHQ-2 smpgc301[facility] [place] of Occupational Health - Occupational Stress QuestionnaireAnswerDate RecordedDo you feel stress - tense, restless, nervous, or anxious, or unable to sleep at night because yourmind is troubled all the time - these days?Only a ngkkrb0203/02/2024 Exercise Vital SignAnswerDate RecordedOn average, how many days per week do you engage in moderate to strenuous exercise (like a brisk walk)?0 days03/02/2024On average, how many minutes do you engage in exercise at this level?0 min 03/02/2024Hunger Vital SignAnswerDate RecordedWithin the past 12 months, you worried that your food would run out before you got the money to buymore.Never true03/02/2024Within the past 12 months, the food you bought just didn't last and you didn't have money to get more.Never true03/02/2024RAPARE - TransportationAnswerDate RecordedIn the past 12 months, has lack of transportation kept you from medical appointments or from getting medications?No 03/02/2024In the past 12 months, has lack of transportation kept you from meetings, work, or from getting things needed for daily living?No03/02/2024 Housing Stability Vital SignAnswerDate RecordedIn the last 12 months, was there a time when you were not able to pay the mortgage or rent on time?No03/02/2024 Number of Places Lived in the Last YearNot on file03/02/2024In the last 12 months, was there a time when you did not have a steady place to sleep or slept in ashelter (including now)?No4Area Deprivation IndexAnswerDate RecordedNational Score (1-100), lower number is lower rrwl394002/27/2023State Score (1-10), lower number is lower gtff8163Data from: https://www.neighborhoodatlas.[facility].edu/. Last address used for t[address] [facility]3CommentsNoSex and Gender InformationValueDate RecordedSex Assigned at TkvxgHhbrao34/26/2022 6:05 PM EDT Legal GraYizodo46/02/2012 10:01 AM ESTGender QrfunbntTznqmh73/02/2022 11:52 AM EDTSexual GiewzctgopbQczcybur22/26/2022 6:05 PM EDT Last Filed Vital Signs Vital SignReadingTime TakenCommentsBlood Mnnrnmgp847/7207/25/2024 3:08 PM EST Agrtv132507/25/2024 3:08 PM IBQFsazsjxbbxd90.6 ??C (97.9 ??F)08/31/2023 11:07 AM ESTRespiratory Uomf096006/12/2010 7:00 AM EDTOxygen Urueigskfm544%07/25/2024 3:08 PM ESTInhaled Oxygen Concentration--Huwojh72.8 kg (184 lb 11.9 oz)07/25/2024 3:08 PM FHZQrpsdt460.2 cm (5' 7 )07/04/2024 11:01 AM EDTBody Mass Index28.94 07/04/2024 11:01 AM EDT Plan of Treatment Health MaintenanceDue DateLast DoneCommentsHepatitis B Vaccine (2 of 3 - 3-dose series)DTaP,Tdap,Td Vaccine (1 - Tdap)12/18/2007Pneumococcal Vaccine (1 of 2 - PCV)12/18/2007Cervical Cancer Vcbckpwis29/05/2010HPV Vaccine (1 - 3-dose SCDM series)12/18/2015Medicare Advantage Annual Wellness Visit 09/14/2024Influenza Vaccine (#1)51, 07/09/2020, 07/09/2020 Covid-19 YzaxllmSxnflyelmqrh06/16/2021, 04/08/2021HIV ScreeningCompleted 02/25/2024Hepatitis C EidcszzksBdmksshxe95/13/2024 Medical Devices ImplantedTypeAreaManufacturerDevice IdentifierShelf Expiration DateModel / Serial / LotBreast Us Core Bx Clip Implanted:Qty: 1 on 07/11/2024 by Michelle Son MD at [facility] FHCLeft: BreastBARD PERIPHERAL TVNMFBWE71/28/2027/ / [id number]:Ribbon clip Procedures Procedure NamePriorityDate/TimeAssociated DiagnosisCommentsHIV 1/2 COMBO WITH REFLEX TO SGIGSIUWAIXLCQLBfdhyfy43/13/2024 7:51 AM EDT Routine health maintenance HEPATITIS C ANTIBODY IA WITH TWHGSYDUMQCDSoqwwmv09/13/2024 7:51 AM EDT Routine health maintenance from Last 3 Months or Most Recently Relevant to Health Maintenance Results * HIV 1/2 COMBO WITH REFLEX TO DIFFERENTIATION (02/25/2024 7:51 AM EDT)Component ValueRef RangeTest MethodAnalysis TimePerformed AtPathologist SignatureHIV 12 Combo (Ag/Ab)XvpxkmaockwGhtnnqtysty17/13/2024 5:32 PM [facility]TCAD[facility] LABHIV-1/2 AB (Confirmatory)02/25/2024 5:32 PM [facility] LABComment:Test not indicated.HIV Zhlrtrfluhaumb45/13/2024 5:32 PM EDT [facility] LABComment: No evidence of HIV-1 or HIV-2 infection. Should recent infection be suspected, repeat testing may be considered 2-3 weeks after this draw. [place] Rev. Code 3701.243(E): This information has been disclosed to you from confidential records protected from disclosure by state law. ??You shall make no further disclosure of this information without the specific, written, and informed release of the individual to whom it pertains or as otherwise permitted by state law. A general authorization for the release of medical or other information is not sufficient for the purpose of the release of HIV test results or diagnoses. Specimen (Source)Anatomical Location / LateralityCollection Method / Volume Collection TimeReceived TimeBloodBLOOD SPECIMEN / UnknownVenipuncture / Unknown 02/25/2024 7:51 AM EDT02/25/2024 7:51 AM EDT Narrative Authorizing ProviderResult TypeResult StatusTrevor Ronald Min DOLABORATORYFinal ResultPerforming OrganizationAddressCity/State/ZIP CodePhone Number [facility] [address] * HEPATITIS C ANTIBODY IA WITH CONFIRMATION (02/25/2024 7:51 AM EDT)Component ValueRef RangeTest MethodAnalysis TimePerformed AtPathologist SignatureHep C Antibody WPNhsobcxeVdgllfzb22/13/2024 6:42 PM EDTCADENA PIKE [facility] LABComment:The result suggests no evidence of active infection with Hepatitis C virus. Should recent infectionbe suspected, repeat testing may be considered 4-6 weeks after this draw.Specimen (Source)Anatomical Location / Laterality Collection Method / VolumeCollection TimeReceived TimeBloodBLOOD SPECIMEN / UnknownVenipuncture / Gekwozv2102/25/2024 7:51 AM EDT02/25/2024 7:51 AM EDT Narrative Authorizing ProviderResult TypeResult StatusTrevor Ronald Min DOLABORATORYFinal ResultPerforming OrganizationAddressCity/State/ZIP CodePhone Number [facility] [address] from Last 3 Months or Most Recently Relevant to Health Maintenance Insurance Care Teams Team MemberRelationshipSpecialtyStart DateEnd Date Nilo Prado MD [address] [place] [address] GryqckrceMnpaotlnymrxdvlt38/4/23 Lisha Worthington, CEDRIC.STRING WINDING MACHINE OPERATOR [address] [place] [address] Care PartnerFamily Medicine12/16/24
--- OUTSIDE RECORDS SUMMARY | 2025-07-23 07:32 | XMS_ITS | Clinical Summary ---
Author Organization [facility] Address [address] [place] [address] Phone Care Team Providers Care Conflicts Analyst Name Role Phone Generic Provider, No Assigned Pcp MD Primary Car e Provider Unavailable Allergies Active AllergyReactionsCriticalityNoted YmzoOlznapsaFzuclowbfwtxFucrn63/13/2023 FiisvlmnbDgnxj38/02/1692UpnpsgnAdbkvmntIdo61/10/2020Coconut FlavorAnaphylaxis High05/09/2020 coconut Coconut Oil, MndtdcebctppJmsitbtLampvl03/04/2020 Medications MedicationSigDispense QuantityRefillsLast FilledStart DateEnd DateStatus DULoxetine (Cymbalta) [address] capsule Take 90 mg by mouth.02/29/2020Active usjcrruocvdi-zlt-xzba-FA-vit K (Bariatric Multivitamins) 45 mg iron- 800 mcg-120 mcg capsule Take by mouth.Active traZODone (Desyrel) 100 mg tablet Take 1 tablet (100 mg) by mouth once daily at bedtime.10/29/2022ctive lamoTRIgine (LaMICtal) 25 mg tablet Take 2 tablets (50 mg) by mouth twice a day.01/06/2024ctive Vraylar 1.5 mg capsule Take 1 capsule (1.5 mg) by mouth early in the morning..5Active Mounjaro 2.5 mg/0.5 mL pen injector Inject 2.5 mg under the skin every 7 days.06/04/2024ctive Active Problems ProblemNoted DateDiagnosed DateCurrent baqddy4708/08/2024Other chest pain 08/08/2024Family history of ischemic heart zcdzifp2808/08/2024MI 29.0-29.9,adult 08/08/2024Shortness of afqidq926759Aqysqplywwmg82/25/2024ipolar affective disorder in exazdojso75/27/2023Low iron4228Jjtvsknfti14/09/2023H/O foot dfqaumn7011/20/2022Idiopathic intracranial /09/2023rimary pbsfaycqfgiy80/09/2023Intestinal iuytrgmxwmiue39/08/2023History of gastric trwpoi4101/07/2021Vitamin D ifhsrddosn24/14/2020Bilateral foot pain05/23/2020 Borderline personality ypaiynwo98/09/2020Flat feet05/23/2020Gastroesophageal reflux disease without rwbztjdhqod05/09/6315Pbmkbnezc80/02/2020Anxiety and osmhkjqfao28/02/2020Bipolar disease, dphprdc5905/16/2020Poor growth, affecting management of mother, antepartum condition or /20/2008 Acute /20/2003Streptococcal sore lltciw1612/01/2002Abdominal pain 06/13/2002Acute suppurative otitis media without spontaneous rupture of ear drum 06/13/20025242Hqnlwak29/30/2002Sprain of ankle12/06/2001 Immunizations ImmunizationAdministration DatesNext DueHepatitis B vaccine, 19 yrs and under (RECOMBIVAX, ENGERIX)11/12/2000MMR vaccine, subcutaneous (MMR II)11/12/2000 Family History Medical HistoryRelationNameCommentsHypertensionBrotherALSFatherHypertension FatherCoronary artery diseaseMaternal GrandfatherHeart attackMaternal GrandfatherHeart attackMotherHypertensionMotherPancreatic cancerMotherRelation NameStatusCommentsBrotherFatherMaternal GrandfatherMother Social History Tobacco UseTypesPacks/DayYears UsedDateSmoking Tobacco: Every DayCigarettes Smokeless Tobacco: Never Tobacco Cessation:Counseling Given: Yes Alcohol UseStandard Drinks/WeekCommentsNever0 (1 standard drink = 0.6 oz pure alcohol)CommentsUnknownSex and Gender InformationValueDate RecordedSex Assigned at ApbbrFqnmzc68/29/2024 9:48 AM ESTLegal HocYfnkqr87/25/2022 2:23 PM ESTGender MpbwqlahQnnlzd68/29/2024 9:48 AM ESTSexual OrientationChoose not to tvohsgdm20/29/2024 9:48 AM EST Last Filed Vital Signs Vital SignReadingTime TakenCommentsBlood Ybhzkcty977/7609/13/2024 9:40 AM EST Swbyz145008/08/2024 3:28 PM ESTTemperature--Respiratory Rate--Oxygen Saturation-- Inhaled Oxygen Concentration--Evbjpp27.3 kg (188 lb)09/13/2024 9:40 AM ESTHeight 170.2 cm (5' 7 )09/13/2024 9:40 AM ESTBody Mass Index29.441 9:40 AM EST Plan of Treatment Health MaintenanceDue DateLast DoneCommentsHIV Nmdjfzeyq32/05/1989Lipid Panel 1988Medicare Annual Wellness Visit (AWV)1988Hepatitis B Vaccines (2 of 3 - 3-dose series)Hepatitis C Glpmhyoeb16/05/2007 Pneumococcal Vaccine: Pediatrics and At-Risk Adult Patients (1 of 2 - PCV) 12/18/2007HPV/Qgyixq1212/17/2009DTaP/Tdap/Td Vaccines (1 - Tdap)2010HPV Vaccines (1 - 3-dose standard series)12/18/2015Cervical Cancer Screening 06/10/2016Pap Smear06/10/, 08/02/2012, 08/31/2009, Additional history existsInfluenza Vaccine (#1)COVID-19 Vaccine ( - season)2025Diabetes Bpuqqnctq18, 08/12/2023, 07/18/2022, Additional history existsZoster Vaccines (1 of 2)2038MMR KnhrujekSwntclbtf77/01/2001HIB VaccinesAged OutNo longer eligible based on patient's age to complete this topicHepatitis A VaccinesAged OutNo longer eligible based on patient's age to complete this topicIPV VaccinesAged OutNo longer eligible based on patient's age to complete this topicMeningococcal VaccineAged OutNo longer eligible based on patient's age to complete this topic Rotavirus VaccinesAged OutNo longer eligible based on patient's age to complete this topic Procedures Procedure NamePriorityDate/TimeAssociated DiagnosisCommentsCONVERTED CLOTH NEUTRALIZER FHRJWZEAPwazsjk16/27/2013 12:00 AM EDT from Last 3 Months or Most Recently Relevant to Health Maintenance Results * CONVERTED CLOTH NEUTRALIZER CYTOLOGY (06/10/2013 12:00 AM EDT)ComponentValueRef RangeTest MethodAnalysis TimePerformed AtPathologist SignaturePathology Report ? Date of Procedure: ??06/10/2013 ? Pathologist: Date Reported: 06/15/2013 Date Received: ??06/13/2013 Submitting Physician: Conversion ? FINAL CYTOLOGICAL INTERPRETATION Squamous and/or Glandular Abnormality Satisfactory for evaluation. Transformation zone present. 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 - SCREENED BY: MICAH BHAKTA (ASCP) ? Note: ??Pap smear testing is a screening procedure and subject to both false negative and false positive results as evidenced by published data. Your patient's test result should be interpreted in this context, together with patient's history and clinical findings. ? - Signed by: MAEGAN ARIAS ?06/15/13 Electronically Signed Out By [facility], Cytology/ By the signature on this report, the individual or group listed as making the Final Interpretation/Diagnosis certifies that they have reviewed this case. Educational Note: Cervical cytology is a screening procedure primarily for squamous cancers and precursors and has associated false-negative and false-positive results as evidenced by published data. ??Your patient's test should be interpreted in this context, together with patient's history and clinical findings. ??Regular sampling and follow-up of unexplained clinical signs and symptoms are recommended to minimize false negative results. Clinical History Date of Last Menstrual Period: ? (Not Entered) - PREVIOUS CASES ? [id number] G-3980-12 S-1414-10 G-6141-09 G-6425-08 7040- - - HISTORY & COMMENTS Previous Abnormal PAP and/or Biopsy ? LSIL ? Source of Specimen A: Unknown Part Type [facility] Department of Pathology [address] COPATHCONVERTED FINAL DIAGNOSISSatisfactory for evaluation. Transformation zone present. 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 - SCREENED BY: MICAH BHAKTA (ASCP) ? Note: ??Pap smear testing is a screening procedure and subject to both false negative and false positive results as evidenced by published data. Your patient's test result should be interpreted in this context, together with patient's history and clinical findings. ? - Signed by: MAEGAN ARIAS ?06/15/13 [facility] COPATHCONVERTED CLINICAL DIAGNOSIS-HISTORY- PREVIOUS CASES ? S-4121-13 G-3980-12 S-1414-10 G-6141-09 G-6425-08 S-7040-08 S57-08 -08 - HISTORY & COMMENTS Previous Abnormal PAP and/or Biopsy ? LSIL ? [facility] COPATHCONVERTED SLIDE-BLOCK DESCRIPTION- TISSUES - ??1. CERVICAL/VAGINAL THIN PREP ?- [facility] COPATHCONVERTED REPORT COMMENTSSt [place] Case # [id number] ?DOS: 06/10/13 ? - ORD PHYSICIAN: Clinton Hernandez MD ? - ORD PROCEDURES - ? CYTO PAP TLP MAN SCR /1 ? CYTO PAP MD INTERP /1 ? - COPIES TO: ? Clinton Hernandez ??MD ? - Status History - ? ENT ? 06/13/13 0948 ??PRICE FELIX ? DIAG ?06/15/13 1321 ??MAEGAN ARIAS ? SOUT ?06/15/13 1325 ??MAEGAN ARIAS ?- Rosa Conversion Report - [facility] COPATHCONVERTED FINAL REPORT PDF LINK TO COPY AND PASTE \copathshare\copath\PDF \[id number].pdfK[facility]DR[facility] COPATHSpecimen (Source) Anatomical Location / LateralityCollection Method / VolumeCollection Time Received TimeUnrecognized Part Type 9:48 AM EDT Narrative Authorizing ProviderResult TypeResult StatusCopath ConversionLAB CYTOLOGY ORDERABLESFinal ResultPerforming OrganizationAddressCity/State/ZIP CodePhone Number [facility]ATH [address] [place] [address] from Last 3 Months or Most Recently Relevant to Health Maintenance Insurance Care Teams Team MemberRelationshipSpecialtyStart DateEnd Date Generic Provider, No Assigned Pcp, [place] [id number] PCP - GeneralGeneral Practice11/03/24
--- OUTSIDE RECORDS SUMMARY | 2025-07-23 07:34 | XMS_ITS | CCD ---
Author Organization [facility] ion Partnership [facility] Care Team Providers Care Net Architect Name Role Phone Jennie Durand Primary Care Provider [phone] LINDY COTE Attending Unavailable PROVIDER, UNKNOWN Admitting [...] Other Provider MD Lizzeth Malave Attending Provider [phone] DO Jamie Larsen Referring Provider DIANNE Niño-CHRIS Kevin Attending Provider [phone] Nakia Mcqueen Primary Care Physician [phone] DR CAROLYNE RALPH Consulting Unavailable MISC, DR [...] e Nakia Mcqueen Primary Care Physician [phone] Jennie Durand Primary Care Physician [phone] Durand, DO Jennie D Primary Care Provider [phone] Tupa, DO Jose Maria Blue Emergency Provider Ania Javed Unavailable Eve Imruth Unavailable Durand, DO Jennie D Primary Care Provider Tupa, DO Jose Maria Blue Emergency Provider MD Yoli oNrris Emergency Provider [phone] GANESH CORDERO Referring Unavailable DURAND, JENNIE D [...] Care Provider MD Marii Christiansen Emergency Provider Tupa, DO Jose Maria Blue Emergency Provider CEDRIC Javed Emergency Provider Eve BHAKTA, Imad Unavailable Elia Baires DO Primary Care Provider Alexis Shukla Attending Unavailable Bakari Chester Attending Unavailable REFERRAL, SELF Referring Unavailable Otto Larsen Attending Unavaila ble Durand, Jennie D Admitting Unavailable Durand, Jennie D Referring Unavailable Durand, Jennie D Attending Unavailable GIL, CUSTOMS PORT DIRECTOR GANESH Bach Attending Unavailable GIL, CUSTOMS PORT DIRECTOR GANESH Bach Admitting Unavailable Otto Larsen Attending UnavailAlexis Bergman Attending Unavailable Tevin Carson DO Primary Care Provider [phone] Unavailable Primary Care Provider Unavailbehzad e Unavailable Primary Care Provider Unavailabl TIFFANIE Mckeon Primary Care Physician [phone] [facility] DO, Natacha Unavailable ALEAH HOWARD Referring Unavailable ESHA, KURT A Primary Care Physician [phone] Esha, Kurt A Unavailable NON STAFF Primary [...] Attending Provider ALEAH HOWARD Attending Unavailable Ander AIRBORNE SENSOR SPECIALIST.[facility], [facility] Unavailable MARII RICK Admitting Unavailable MARII RICK Attending Unavailable Bryan Avila Attending Unavailable MOLLY GREGORIO Admitting Unavailable MOLLY GREGORIO Referring Unavailable MOLLY GREGORIO Attending Unavailable Babar Mayers Referring Unavailable Babar Mayers Attending Unavailable Bbaar Mayers Admitting Unavailable Jennie Durand Admitting Unavailable Durand, Jennie D Referring Unavailable Durand, Jennie D Attending Unavailable Othman, Mahmoud Consulting Unavailable THERESA GREGORIONIFER Admitting Unavailable BERNARDMOLLY BUCHANAN Referring Unavailable MOLLY GREGORIO Attending Unavailable MD Fernandez Daniels Consulting Unavailable Otcortes, Fernandez Consulting Unavailable West Leisenring, Jak W Referring Unavailable West Leisenring, Jak W Attending Unavailable West Leisenring, Jak W Admitting Unavailable Babar Mayers Attending Unavailable Babar Mayers Referring Unavailable Durand, Jennie Jeni Attending Unavailable Durand, Jennie D Admitting Unavailable Rhiew, David B Referring Unavailable Rhiew, David B Attending Unavailable Rhiew, David B Admitting Unavailable Rhiew, David B Attending Unavailable Rhiew, David B Admitting Unavailable Austin, Bryan Attending Unavailable Haelen, Jose H Attending Unavailable ESHA, KURT A Attending [...] D Attending Unavailable BERNARD, MOLLY Referring Unavailable West Leisenring, Jak W Attending Unavailable Esha CUSTOMS PORT DIRECTOR, Kurt A Unavailable Corby Larsen DO Unavailable Unallocated , Noms Provider Primary Care [facility] Lindy Keen APRN Primary Care Provider Efrem Victor MD Attending Provider [phone] Aaliyah Francis DO Attending Provider [phone] Ladarius SNOWDEN Jennie Jeni Primary Care Provider Lindy Keen APRN Primary Care Provider Efrem Victor MD Attending Provider [phone] Esha GALVEZ, Kurt Lehman Unavailable [phone] Suzie SNOWDEN Christopher Unavailable Osmani STEELE Lindy Primary Care Provider Efrem Victor MD Attending Provider [phone] Alexis Helm MD Emergency Provider [phone] LINDA ELISEDION Bach Attending Unavailable ITZKOWITZ, AALIYAH H Attending Unavailable MOLLY GREGORIO Referring Unavailable ITZKOWITZ, AALIYAH H Attending Unavailable ITZKOJOSETZ, AALIYAH H Attending Unavailable ITZKOJOSETZ, AALIYAH H Attending Unavailable SARAH BUCKLEY Attending Unavailable CORBY LARSEN Attending Unavailable CORBY LARSEN Attending Unavailable Itzkowitz, Aaliyah Attending Unavailable Itzkowitz, Aaliyah Admitting Unavailable Jennie Durand Primary Care Unavailable Itzkowitz, Aaliyah Admitting Unavailable Itzkowitz, Aaliyah Attending Unavailable Jennie Durand Primary Care Unavailable Efrem Victor Attending Unavailab Lindy Ruano Primary Care Unavailable Efrem Victor Admitting Unavailab Alexis Holguin Admitting Unavailable Alexis Helm Attending Unavailable Jennie Durand Primary Care Unavailable NON STAFF Primary Care Unavailable Sailaja Anderson Admitting Unavailable Sailaja Anderson Attending Unavailable Itzkowitz, Aaliyah Admitting Unavailable Itzkowitz, Aaliyah Attending Unavailable Jennie Durand Primary Care Unavailable NON STAFF Primary Care Unavailable Corby Larsen Admitting Unavailab Corby Apodaca Attending Unavailab Jacob Morelos Admitting Unavailable Jacob Baker Attending Unavailable NON STAFF Primary Care Unavailable Itzkowitz, Aaliyah Admitting Unavailable Itzkowitz, Aaliyah Attending Unavailable Jennie Durand Primary Care Unavailable Corby Larsen DO Attending Provider [phone] West Leisenring, Jak W Admitting Unavailable West Leisenring, Jak W Attending Unavailable NONE, XXXX Referring Unavailable Babar Mayers Attending Unavailable Babar Mayers Referring Unavailable Sami Brewster Attending Unavailable BERNARD, MOLLY Referring Unavailable West Leisenring, Jak W Attending Unavailable West Leisenring, Jak W Referring Unavailable West Leisenring, Jak W Admitting Unavailable MARII FREIREitting Unavailable MARII FREIRE Attending Unavailable West Leisenring Jak W Attending Unavailable NONE, XXXX Referring Unavailable Babar Mayers Admitting Unavailable Babar Mayers Attending Unavailable Jennie Durand Referring Unavailable Jak Peace Attending Unavailable NONE, XXXX Referring Unavailable Allergies Allergy ClassificationReported Allergen(s)Allergy TypeDate of OnsetReaction(s) Facilitycoconut allergenic extract (7 sources)coconut allergenic extractDrug Chatugj74-33-4932UnnqmmfRfmgc Health (20 sources)coconut allergenic extract; Translations: [Coconut Oil]Drug Allergy 67-29-8936CfqbxqxVddmrHughesville, [place] (19 sources)Coconut Flavor; Translations: [COCONUT FLAVOR]Propensity to adverse reactions to uars27-70-9777TgxiatqwrhhOyimzHouston, [place] (1 source)SOAP; Translations: [SOAP]Propensity to adverse reactions to drug (disorder)66-15-1766Rmq [facility] Repository (1 source)Pencils; Translations: [Unknown]Propensity to adverse reactions (disorder)11-13-6015Cus [facility] Repository (20 sources)Coconut extract; Translations: [coconut]Drug Vhznxsd87-45-4588 [facility] (20 sources)ARIPiprazole lauroxil; Translations: [aripiprazole]Drug Allergy [facility] (20 sources)ARIPiprazole; Translations: [aripiprazole]Drug Sbvnsoi65-91-4241 Mental Status Change, Other: See Comments, Unknown, [facility] HospitalComment on above:Pt states it makes her suicidal. (1 source)ARIPiprazoleDrug Tmpsvrw99-01-5759ZbfSelect [facility] (20 sources)busPIRone; Translations: [Buspirone]Drug AllergyProMedica [facility]edo [facility] (20 sources)buPROPion; Translations: [BUPROPION]Drug Zszekaw41-01-7262VrmbreePioneer Community Hospital [facility] (20 sources)busPIRone; Translations: [buspirone]Drug Nbdvtoo65-52-7560 [facility] CampusComment on above: rapid heart rate (4 sources)Coconut Oil, Hydrogenated; Translations: [COCONUT OIL, HYDROGENATED] Propensity to adverse oznorqagv04-74-2014KjzgiatSuaqguioikPremier Health [facility] Work Phone: (16 sources)Coconut extractDrug Fdbjwsa09-04-1280OQIZ Healthcare Medications Current Medications MedicationDrug Class(es)DatesSig (Normalized)Sig (Original)acetaminophen 325 mg oral capsule (20 sources)Start: 06-14-2025 End: 03-32-7486dmuo 1 capsule by mouth every six hours for painacetaminophen (Tylenol) 325 MG capsule Indications: Hematoma Take 1 capsule (325 mg) by mouth every6 (six) hours if needed for mild pain or moderate pain for up to 8 days 30 capsule 06/14/2025 06/22/2025 ActiveStart: 23-23-8448bpvn 325 mg by mouth every four hours as needed for painTylenol 325 mg, Oral, q4hr, PRN as needed for pain, Refills(s) 0, Pain Start Date: 04/18/16 Status: Ordered Repeat number: 1 End: 22-77-9206este 2 tablets by mouth every six hours as needed for pain acetaminophen (TYLENOL) 500 MG tablet Take 1,000 mg by mouth every 6 hours as needed for Pain As needed 0 01/07/2021 Discontinued (LIST CLEANUP)acetaminophen 300 mg / butalbital 50 mg / caffeine 40 mg oral capsule (7 sources)Barbiturate, Central Nervous System Stimulant, MethylxanthineStart: 21-58-4483fqka 1 capsule by mouth every four hours for headache APAP/butalbital/caffeine 300 mg-50 mg-40 mg oral capsule 1 cap(s), Oral, q4hr for headache, 12 cap(s), Refill(s) 0, [facility]/pharmacy #[id number], 170, cm, 08/22/22 10:41:00 EST, Height/Length Dosing, 85, kg, 08/22/22 10:41:00 EST, Weight Dosing Start Date: 08/22/22 Status: OrderedStart: 48-92-7970hqch 1 capsule by mouth every four hours for headacheAPAP/butalbital/caffeine 300 mg-50 mg-40 mg oral capsule 1 cap(s), Oral, q4hr for headache, 12 cap(s), Refill(s) 0, [facility]acy [facility][id number], 162, cm, 08/08/22 9:11:00 EST, Height/Length Dosing, 83.1, kg, 08/08/22 9:11:00 EST, Weight Dosing Start Date: 08/08/22 Status: Orderedacetaminophen 325 mg / oxyCODONE hydrochloride 5 mg oral tablet (7 sources)Opioid AgonistStart: 12-05-2022 End: 73-15-4313hqyipvtgzcoxd-oxycodone 325 mg-5 mg Tab 1 tab(s), Oral, q6hr for pain for 2 day(s), 7 tab(s), Refill(s) 0, [id number], 170, cm, 11/21/22 10:37:00 EST, Height/Length Dosing, 84, kg, 11/21/22 10:37:00 EST, Weight Dosing Start Date: 12/05/22 Stop Date: 12/07/22 Status: OrderedStart: 02-01-2021 End: 27-96-1808crbWWMHZH-acetaminophen (PERCOCET) 5-325 MG per tablet Indications: Omental infarction (HCC) , Surgery, elective Take 1 tablet by mouth every 6 hours as needed for Pain for up to 5 days. Intended supply: 7 days. Take lowest dose possible to manage pain 20 tablet 0 02/01/2021 02/06/2021 Start: 51-27-4852glas 1 tablet by mouth every four hours as needed for pain1 tablet, Oral, EVERY 4 HOURS PRN, Pain Severe (7-10), Starting on Thu01/30/21 at 2157 Maximum doseof acetaminophen is 4000 mg from all sources in 24 hours.Start: 01-08-2021 End: 02-73-1431wlbJLMERE-acetaminophen (PERCOCET) 5-325 MG per tablet Indications: Post-op pain Take 1 tablet by mouth every 6 hours as needed for Pain for up to 7 days. Intended supply: 7 days. Take lowest dose possible to manage pain 28 tablet 0 01/08/2021 01/15/2021 ActiveStart: 29-32-0644clkJFUZYK- acetaminophen (PERCOCET) 5-325 MG per tablet 1 tabletStart: 09-28-2020 End: 96-54-3442xzoKUOVRT-acetaminophen (PERCOCET) 5-325 MG per tablet 1 tablet acetaZOLAMIDE 125 mg oral tablet (20 sources)Carbonic Anhydrase InhibitorStart: 93-27-6863zddq 1 tablet by mouth twice dailyAcetazolamide 125 mg tablet Active 125 MG PO Twice daily 60 July 12, 2025 12:00am Complies with drug therapyStart: 07-07-2023 End: 10-52-4457pzxi 1 tablet by mouth twice daily as neededAcetazolamide 250 mg tablet Discontinued 250 MG PO Twice daily as needed for intracranial pressure D ec2022 1:00am December 31, 2023 11:59amStart: 11-20-2022 End: 46-85-1642amgk 1 capsule by mouth twice dailyAcetazolamide 500 mg capsule, extended release Discontinued 500 MG PO Twice daily 30 July 03, 2023 12:00am August 15, 2023 12:41pmComment on above:Take 1 capsule by mouth twice daily. Start from 500mg daily, increase to twice a day in a weekalbuterol 0.833 mg/ml / ipratropium bromide 0.167 mg/ml inhalation solution (1 source)Anticholinergic, beta2-Adrenergic AgonistStart: 76-24-4896ijnjrhlqusy- albuterol (DUONEB) nebulizer solution 1 ampuleamoxicillin 875 mg / clavulanate 125 mg oral tablet (5 sources)Penicillin-class AntibacterialStart: 04-09-2025 End: 50-60-7117trfm 1 tablet by mouth in the morningamoxicillin-clavulanate (Augmentin) 875-125 MG tablet Indications: Pharyngitis, unspecified etiology , Acute pharyngitis, unspecified etiology Take 1 tablet (875 mg) by mouth in the morning and 1 tablet (875 mg) before bedtime. Do all this for 10 days. 20 tablet 04/09/2025 04/19/2025 ActiveStart: 02-01-2021 End: 46-81-6269vlfp 1 tablet by mouth twice dailyamoxicillin-clavulanate (AUGMENTIN) 875-125 MG per tablet Take 1 tablet by mouth 2 times daily for 10 days 20 tablet 0 02/01/2021 02/11/2021 ActiveAmphetamine / Dextroamphetamine (1 source)Central Nervous System StimulantStart: 24-01-8848Qzpljxuw 5 mg oral tablet 2.5 mg, 0.5 tab(s), Oral, Refill(s) 0 Start Date: 07/01/21 Status: Orderedbaclofen 5 mg oral tablet (3 sources)gamma-Aminobutyric Acid-ergic AgonistStart: 03-03-2025 End: 83-82-1740mydq 1 tablet by mouth three times daily as needed for pain baclofen 5 mg oral tablet 5 mg = 1 tab(s), Oral, TID, PRN Pain, X 30 day(s), # 90 tab(s), Refills(s) 0, Pharmacy: [facility]/pharmacy #[id number], 170, cm, 03/03/25 7:35:00 EDT, Height/Length Dosing, 90.4, kg, 02/17/25 18:58:00 EDT, Weight Dosing Start Date: 03/03/25 Stop Date: 04/02/25 Status: Ordered Quantity: 90.0 Unit: tab(s) Repeat number: 1brompheniramine maleate 0.4 mg/ml / dextromethorphan hydrobromide 2 mg/ml / pseudoephedrine hydrochloride 6 mg/ml oral solution (3 sources)alpha-Adrenergic Agonist, Uncompetitive F-rpuhpa-Q-aspartate Receptor Antagonist, Sigma-1 AgonistStart: 86-15-5099ryfk 10 mL by mouth four times daily Bromfed DM oral syrup 10 mL, Oral, QID for cold symptoms, 200 mL, Refill(s) 0, [facility]/pharmacy #[id number], 170, cm, 02/17/25 18:58:00 EDT, Height/Length Dosing, 90.4, kg, 02/17/25 18:58:00 EDT, Weight DosingStart Date: 02/17/25 Status: Ordered Quantity: 200.0 Unit: mL Repeat number: 1calcium chloride 0.0014 meq/ml / potassium chloride 0.004 meq/ml / sodium chloride 0.103 meq/ml / sodium lactate 0.028 meq/ml injectable solution (4 sources)Start: 56-79-9314ynryfses ringers IV soln infusionStart: 01-07-2021 End: 35-41-7149sihoraxt ringers infusionStart: 55-97-1010awntyzik ringers infusioncalcium citrate 950 mg oral tablet (20 sources)Start: 77-44-6441rfsk 1 mg by mouth twice dailycalcium (as calcium citrate) 200 mg oral tablet mg tab(s), Oral, BID, Refills(s) 0 Start Date: 07/01 Status: Ordereddexamethasone 0.1 mg/ml oral solution (1 source)CorticosteroidStart: 02-12-2022 End: 04-72-8951oyyWETYVwizms (DECADRON) 0.5 mg/5 mL solution Indications: Irritation of oral cavity , Burning tongue Take 5 mL by mouth three times daily for 7 days. Swish for 5 minutes then spit out. Wait 30 minutes, then use Nystatin solution. 105 mL 0 02/12/2022 02/19/2022 ActiveComment on above:Take 5 mL by mouth three times daily for 7 days. Swish for 5 minutes then spit out. Wait 30 minutes, then use Nystatin solution.1 ml diphenhydrAMINE hydrochloride 50 mg/ml cartridge (2 sources)Histamine-1 Receptor AntagonistStart: 09-18-2023 End: 92-65-6116nohttbpvlyWLHSC (BENADRYL) injection 12.5 mgStart: 09-28-2020 End: 86-42-1464ydpoarenrfELAJN (BENADRYL) injection 12.5 mgDULoxetine 60 mg delayed release oral capsule (20 sources)Serotonin and Norepinephrine Reuptake InhibitorStart: 87-79-2089upwv 1 capsule by mouth once daily at bedtimeDuloxetine (Cymbalta) 60 mg capsule,delayed release(DR/EC) Active 60 MG PO Daily at bedtime June 05, 2025 12:14pm Complies with drug therapyStart: 02-21-2023 End: 97-61-9712zasn 1 capsule by mouth once daily at bedtimeDuloxetine 30 mg capsule,delayed release(DR/EC) Discontinued 30 MG PO Daily at bedtime August 15, 2023 1:00am December 31, 2023 11:59amStart: 07-20-2020 End: 10-12-8829Pdoemdhmsf 30 mg Capsule,Delayed Release(Dr/Ec) Discontinued 30 MG PO Daily at bedtime 30 30 0 July 20, 2020 1:00am August 19, 2022 8:39am Take with 60mg tablet for total of 90mgStart: 49-66-0944TIJudllwys (Cymbalta) [address] capsule Take 90 mg by mouth. 02/29/2020 ActiveStart: 11-52-6407Otfezmxt 60 mg, Oral, BID, per dr chaparro, Depression Start Date: 02/02/19 Status: Ordered Repeat number: 1Start: 54-24-5650Lzqgobsz 60 mg, Oral, BID, per dr chaparro, Depression Start Date: 02/02/19 Status: OrderedStart: 15-34-4982Ebmsuvjg 90 mg, Oral, Daily, 30mg in AM 60mg at night, Depression Start Date: 02/02/19 Status: OrderedStart: 01-08-2019 End: 60-54-5759jdpr 1 capsule by mouth twice dailyDuloxetine (Cymbalta) 60 mg Capsule,Delayed Release(Dr/Ec) Discontinued 60 MG PO Twice daily January 08, 2019 12:00am June 05, 2025 12:22pmStart: 01-08-2019 End: 20-50-0617nrhi 1 capsule by mouth once daily at bedtimeDuloxetine (Cymbalta) 60 mg Capsule,Delayed Release(Dr/Ec) Active 60 MG PO Daily at bedtime January 08, 2019 12:00amtake 1 capsule by mouth every eight hoursCymbalta 30 MG 1 capsule Orally three times a day ActiveCymbalta ActiveComment on above:Take 60 mg by mouth once daily.0.4 ml enoxaparin sodium 100 mg/ml prefilled syringe (1 source)Low Molecular Weight HeparinStart: 14-30-6573iskwba 1 dose by subcutaneous injection twice daily40 mg, Subcutaneous, EVERY 12 HOURS SCHEDULED (2 times per day), [place] Thu01/30/21 [place] [address] ml famotidine 10 mg/ml injection (1 source)Histamine-2 Receptor AntagonistStart: 38-44-6912wfeypktwow (PEPCID) injection 20 mgferrous sulfate 325 mg oral tablet (20 sources)Start: 39-32-3995tire 1 tablet by mouth once dailyFerrous Sulfate 325 mg (65 mg iron) tablet Active 65 MG PO Daily May 16, 2025 12:00am Complies with drug therapyStart: 78-10-1181guat 1 tablet by mouth once daily ferrous sulfate 325 mg Tab TAKE 1 TABLET BY MOUTH EVERY DAY FOR 30 DAYS Start Date: 09/15/24 Status: Ordered Repeat number: 1Start: 06-22-2008 End: 70-93-2118rpyxgik sulfate(IRON 325 MG (65 MG IRON) TAB)Ferrous Sulfate (IRON PO) Take by mouth Active1 ml heparin sodium, porcine 5000 unt/ml prefilled syringe (2 sources)Unfractionated Heparin, Anti-coagulantStart: 01-07-2021 End: 17-08-1429itzarcm (porcine) injection 5,000 Units1 ml HYDROmorphone hydrochloride 1 mg/ml cartridge (5 sources)Opioid AgonistStart: 63-54-9925CMIYMybcsogis (DILAUDID) injection 0.5 mgStart: 02-24-6058UYCWDicbmrduz (DILAUDID) injection 1 mgStart: 09-28-2020 HYDROmorphone (DILAUDID) injection 0.25 mgStart: 47-92-1213XJPSPqmnmhsbn (DILAUDID) injection 0.5 mghydrOXYzine hydrochloride 50 mg oral tablet (17 sources)AntihistamineStart: 96-05-9260vcbhDMLnbyx hydrochloride 50 mg oral tablet Refills(s) 0 Start Date: 04/21/22 Status: OrderedStart: 01-08-2019 End: 11-35-0043ogme 1 capsule by mouth three times dailyHydroxyzine Pamoate 25 mg capsule Discontinued 25 MG PO Three times daily January 08, 2019 12:00am N ovember 2019 3:27pmlabetalol (NORMODYNE;TRANDATE) injection 10 mg (1 source)Start: 94-91-0550uemwijvmw (NORMODYNE;TRANDATE) injection 10 mg labetalol (NORMODYNE;TRANDATE) injection syringe 5 mg (1 source)Start: 45-95-4188yojitrbpu (NORMODYNE;TRANDATE) injection syringe 5 mg lamoTRIgine 150 mg oral tablet (20 sources)Mood Stabilizer, Anti-epileptic AgentStart: 89-01-2210sxil 1 tablet by mouth once dailyLamotrigine 150 mg tablet Active 150 MG PO Daily June 29, 2025 12:00am Complies with drug therapyStart: 06-05-2025 End: 95-22-4287kglz 2 tablets by mouth twice dailyLamotrigine 25 mg tablet Discontinued 50 MG PO Twice daily June 05, 2025 12:00am June 29, 2025 12:39pmStart: 05-16-2025 End: 27-51-5521dqzs 1 tablet by mouth once dailyLamotrigine 100 mg tablet Discontinued 100 MG PO Daily May 16, 2025 12:00am June 05, 2025 12:16pm bi-polarStart: 47-30-1682yklh 2 tablets by mouth twice dailylamoTRIgine (LAMICTAL) 25 mg tablet Indications: Bipolar affective disorder in remission (HCC) , Borderline personality disorder (HCC) , Anxiety disorder, unspecified type TAKE 2 TABLETS BY MOUTH TWICE A DAY 360 tablet 02/13/2025 ActiveStart: 76-06-6649mngq 100 mg by mouth once dailylamotrigine 100 mg, Oral, Daily, Refills(s) 0 Start Date: 01/13/25 Status: Ordered Repeat number: 1Start: 92-35-3674apuz 3 tablets by mouth once dailylamotrigine 25 mg Tab TAKE 3 TABLETS BY MOUTH EVERY DAY Start Date: 09/15/24 Status: Ordered Repeat number: 1Start: 01-06-2024 End: 14-86-4655fnzo 2 tablets by mouth twice dailylamoTRIgine (LAMICTAL) 25 mg tablet Indications: Bipolar affective disorder in remission (HCC) , Borderline personality disorder (HCC) , Anxiety disorder, unspecified type Take 2 tablets by mouth twotimes a day. 360 tablet 08/17/2024 02/13/2025 Discontinued End: 29-62-7611dzts 3 tablets by mouth once dailylamoTRIgine (LAMICTAL) 25 mg tablet Indications: Bipolar affective disorder in remission (HCC) , Borderline personality disorder (HCC) , Anxiety disorder, unspecified type Take 75 mg by mouth once daily. 07/25/2024 Discontinued (Course of therapy completed)magnesium oxide 400 mg oral tablet (2 sources)Start: 08-08-2024 End: 90-51-0397asbo 1 tablet by mouth once dailymagnesium oxide (Mag-Ox) 400 mg tablet Indications: Palpitations Take 1 tablet (400 mg) by mouth once daily. 90 tablet 3 08/08/2024 08/08/2025 Active1 ml meperidine hydrochloride 50 mg/ml injection (1 source)Opioid AgonistStart: 79-48-1882uaeughbexy (DEMEROL) injection 12.5 mg methocarbamol 750 mg oral tablet (1 source)Muscle RelaxantStart: 10-18-2024 End: 07-25-3510xznf 1 tablet by mouth three times dailyRobaxin-750 oral tablet 1,500 mg = 2 tab(s), Oral, TID, X 3 day(s), # 18 tab(s), Refills(s) 0, Pharmacy: [facility]/pharmacy #[id number], 170, cm, 10/18/24 8:12:00 EST, Height/Length Dosing, 90, kg, 10/18/24 8:12:00 EST, Weight Dosing Start Date: 10/18/24 Stop Date: 10/21/24 Status: Ordered2 ml metoclopramide 5 mg/ml prefilled syringe (1 source)Dopamine-2 Receptor AntagonistStart: 09-18-2023 End: 13-27-1766oppljymgriaxmd (REGLAN) injection 10 mg2 ml midazolam 1 mg/ml injection (1 source)BenzodiazepineStart: 09-18-2023 End: 78-47-1615mcsyjqiej PF (VERSED) injection 2 mg1 ml morphine sulfate 2 mg/ml cartridge (6 sources)Opioid AgonistStart: 56-46-0832weoeacze (PF) injection 1 mgStart: 01-30-2021 End: 25-39-6983ogcbeclw (PF) injection 2 mgStart: 01-07-2021 End: 38-34-9883zoteouyw (PF) injection 2 mgStart: 49-77-6551fxtxbyzi (PF) injection 2 mgMulti-Day Plus Minerals (20 sources)Start: 86-06-6221Dzqal-Day Plus Minerals Oral, Daily, Refill(s) 0 Start Date: 07/01/21 Status: Ordered Repeat number: 1Start: 64-08-4886Ipvdc-Day Plus Minerals Oral, Daily, Refill(s) 0 Start Date: 07/01/21 Status: Ordered Multiple Vitamins-Minerals (multivitamin with minerals) tablet (16 sources)take 1 tablet by mouth once dailyMultiple Vitamins-Minerals (multivitamin with minerals) tablet Take 1 tablet by mouth Daily Active Multivitamin preparation (7 sources)Start: 08-48-9551talw 1 tablet by mouth once dailyMultivitamin Active 1 TAB PO Daily August 11, 2022 1:00amStart: 65-95-4268ccbr 1 tablet by mouth once dailyMultivitamin Active 1 TAB PO Daily August 11, 2022 12:00am Multivitamin Tablet (8 sources)Start: 76-63-4983zplj 1 tablet by mouth once dailyMultivitamin Tablet Active 1 TAB PO Daily August 11, 2022 1:00am Complies with drug therapy Start: 89-94-1372coty 1 tablet by mouth once dailyStart: 53-06-2524rawq 1 tablet by mouth once dailyMultivitamin Tablet Active 1 TAB PO Daily August 11, 2022 1:00amStart: 97-11-6347ltjo 1 tablet by mouth once dailyMultivitamin Tablet Active 1 TAB PO Daily August 11, 2022 12:64tuotgjzzzvmlbh-kff-unxc-FA-vit K (BARIATRIC MULTIVITAMINS) 45 mg iron- 800 mcg-120 mcg cap (20 sources)adznnqiaasis-kbd-zlyl-FA-vit K (BARIATRIC MULTIVITAMINS) 45 mg iron- 800 mcg-120 mcg cap Take by mouth. Iesdsjstrurnibtfjg-ghu-ubgq-FA-vit K (BARIATRIC MULTIVITAMINS) 45 mg iron- 800 mcg-120 mcg cap Take by mouth. 0 ActiveComment on above:Take by mouth.hufecdscikqn-yad-ldra-FA-vit K (Bariatric Multivitamins) 45 mg iron- 800 mcg-120 mcg capsule (2 sources)bycefkvvevap-pai-dfww-FA-vit K (Bariatric Multivitamins) 45 mg iron- 800 mcg-120 mcg capsule Take by mouth. Activenaproxen 500 mg oral tablet (9 sources)Nonsteroidal Anti-inflammatory DrugStart: 03-08-2024 End: 34-84-4283eqfg 1 tablet by mouth twice dailynaproxen 500 mg Tab 500 mg = 1 tab(s), Oral, BID, X 10 day(s), # 20 tab(s), Refills(s) 0, Pharmacy:[facility]/pharmacy #[id number], 170, cm, 03/08/24 13:22:00 EDT, Height/Length Dosing, 89.4, kg, 03/08/24 13:22:00 EDT, Weight Dosing Start Date: 03/08/24 Stop Date: 03/18/24 Status: OrderedStart: 78-01-8042npei 1 tablet by mouth twice daily as needed for pain naproxen 500 mg Tab 500 mg = 1 tab(s), Oral, BID, PRN for pain, # 20 tab(s), Refills(s) 0, Pharmacy: [facility]/pharmacy #[id number], 170, cm, 04/20/22 15:01:00 EDT, Height/Length Dosing, 81.5, kg, 04/20/22 15:01:00 EDT, Weight Dosing Start Date: 04/20/22 Status: Orderednebivolol 5 mg oral tablet (1 source)Start: 70-51-9562Eayeukzid 5 mg tablet Active 5 MG PO July 12, 2025 12:00am Complies with drug rbhqmpy06 hr nicotine 0.583 mg/hr transdermal system (1 source)Cholinergic Nicotinic AgonistStart: 11-03-2022 End: 04-01-0738ibutfxfh 14 mg/24 hr Transderm ER Film 1 patch(es), Topical, Daily for 30 day(s), 30 patch(es), Refill(s) 1, [facility]/pharmacy #[id number], 170, cm, 11/03/22 13:04:00 EST, Height/Length Dosing, 83.9, kg, 11/03/22 13:04:00 EST, Weight Dosing Start Date: 11/03/22 Stop Date: 01/02/23 Status: Oshypdu72 hr NIFEdipine 30 mg extended release oral tablet (15 sources)Dihydropyridine Calcium Channel BlockerStart: 58-65-1116ljzn 1 tablet by mouth once daily at bedtimeNifedipine 30 mg tablet extended release Active 30 MG PO Daily at bedtime May 16, 2025 12:00am raynauds Complies with drug therapynitrofurantoin macrocrystals-monohydrate 100 mg Cap (2 sources)Start: 17-29-8070ioih 1 capsule by mouth twice daily at mealtime nitrofurantoin macrocrystals-monohydrate 100 mg Cap TAKE 1 CAPSULE BY MOUTH TWICE A DAY FOR 5 DAYS WITH FOOD Start Date: 01/29/22 Status: Ordered nitrofurantoin, macrocrystals 25 mg / nitrofurantoin, monohydrate 75 mg oral capsule (9 sources)Nitrofuran AntibacterialStart: 48-98-6587sasg 1 capsule by mouth twice daily at mealtimenitrofurantoin macrocrystals-monohydrate 100 mg Cap TAKE 1 CAPSULE BY MOUTH TWICE A DAY FOR 5 DAYS WITH FOOD Start Date: 01/29/22 Status: Orderednystatin 529063 unt/ml oral suspension (1 source)Polyene AntifungalStart: 02-12-2022 End: 73-11-7466bjewgjzm (MYCOSTATIN) 100,000 unit/mL suspension Indications: Irritation of oral cavity , Burning tongue Take 1 mL by mouth three times daily for 7 days. Swish for 1 minutes and spit. Do not eat or drink for 30 minutes afterwards. 21 mL 0 02/12/2022 02/19/2022 ActiveComment on above:Take 1 mL by mouth three times daily for 7 days. Swish for 1 minutes and spit. Do not eat or drink for 30 minutes afterwards.OLANZapine 5 mg oral tablet (8 sources)Atypical AntipsychoticStart: 74-30-4675wmrgwjzxbp 5 mg Tab Refills(s) 0 Start Date: 11/15/24 Status: Ordered Repeat number: 1Trileptal (20 sources)Anti-epileptic AgentStart: 41-68-9021Wkhhvsgaz Refills(s) 0 Start Date: 08/22/22 Status: OrderedStart: 08-12-2022 End: 52-44-7092Swsrdfwhcwzsv 150 mg tablet Discontinued 75 MG PO Twice daily August 12, 2022 1:00am August 15, 2023 12:45pmStart: 08-12-2022 End: 28-10-2843fhfr 75 mg by mouth twice dailyOxcarbazepine Discontinued 75 MG PO Twice daily August 12, 2022 1:00am August 15, 2023 12:45pmoxyCODONE (1 source)Opioid AgonistStart: 09-18-2023 End: 48-89-1753foyXQETMI (ROXICODONE) immediate release tablet 5 mgpiperacillin- tazobactam (ZOSYN) 3,375 mg in dextrose 5 % 50 mL IVPB (mini-bag) (2 sources)Start: 65-23-1295xnlvptrvonyc-tazobactam (ZOSYN) 3,375 mg in dextrose 5 % 50 mL IVPB (mini-bag)Start: 01-30-2021 End: 52-53-4869lsxekbufsumf-tazobactam (ZOSYN) 3,375 mg in dextrose 5 % 50 mL IVPB (mini-bag)predniSONE 20 mg oral tablet (4 sources)Start: 10-18-2024 End: 32-76-3968mkkc 3 tablets by mouth once dailypredniSONE 20 mg Tab 60 mg = 3 tab(s), Oral, Daily, X 7 day(s), # 21 tab(s), Refills(s) 0, Pharmacy: [facility]/pharmacy #[id number], 170, cm, 10/18/24 8:12:00 EST, Height/Length Dosing, 90, kg, 10/18/24 8:12:00 EST, Weight Dosing Start Date: 10/18/24 Stop Date: 10/25/24 Status: OrderedStart: 97-29-5678pzbi 1 tablet by mouth every twelve hours predniSONE 20 MG 1 tablet Orally bid for 5 day(s) Jun, Not-Taking/PRN pregabalin 150 mg oral capsule (5 sources)Start: 11-21-2024 End: 88-21-1717mbds 1 capsule by mouth twice dailypregabalin 150 mg Cap 150 mg = 1 cap(s), Oral, BID, X 30 day(s), # 60 cap(s), Refills(s) 0, Pharmacy: [facility]/pharmacy #[id number], 170, cm, 11/15/24 13:59:00 EST, Height/Length Dosing, 88.5, kg, 11/15/24 13:59:00 EST, Weight Dosing Start Date: 11/21/24 Stop Date: 12/21/24 Status: Ordered Quantity: 60.0 Unit: cap(s) Repeat number: 1 Indication: Radiculopathy, lumbar regionStart: 11-21-2024 End: 96-37-4855fatw 1 capsule by mouth twice dailypregabalin 50 mg Cap 50 mg = 1 cap(s), Oral, BID, X 30 day(s), # 60 cap(s), Refills(s) 1, Pharmacy:[facility]/pharmacy #[id number], 170, cm, 11/15/24 13:59:00 EST, Height/Length Dosing, 88.5, kg, 11/15/24 13:59:00 EST, Weight Dosing Start Date: 11/21/24 Stop Date: 01/20/25 Status: Ordered Quantity: 60.0 Unit: cap(s) Repeat number: 2 Indication: Radiculopathy, lumbar regionprenatal vits w-ca,fe,fa(<1mg)( VITAMIN TAB) (3 sources)Start: 06-22-2008 End: 25-84-1323jltnkadq vits w-ca,fe,fa(Start: 75-49-6572tmfwfyrk vits w-ca,fe,fa(72 hr scopolamine 0.0139 mg/hr transdermal system (1 source)AnticholinergicStart: 06-98-0469vzcsgsmuqga (TRANSDERM-SCOP) transdermal patch 1 patchsemaglutide (10 sources)Start: 22-04-0899smsobr 2.4 mg by subcutaneous injection every week semaglutide 2.4 mg, SubCutaneous, qWeek, Refills(s) 0 Start Date: 01/27/25 Status: Ordered Repeat number: 15 ml sodium chloride 9 mg/ml injection (19 sources)Start: 97-56-3263fjqyks chloride flush 0.9 % injection -40 mLStart: 35-39-3194triyme chloride flush 0.9 % injection 5-40 mLStart: .9 % sodium chloride infusionStart: 91-32-3996keklcy chloride flush 0.9 % injection 5-40 mLStart: 13-86-8335dpgm 1 dose intravenously twice daily5-40 mL, Intravenous, EVERY 12 HOURS SCHEDULED (2 times per day), First dose on Thu02/01/21 at 0900For Line Patency: Peripheral IV = 5 mL; [...] parenteral nutrition, contrast media, or after obtaining bloodsample) use: Peripheral IV = 10 mL Midline or Central Line = 20 mL/lumenStart: 53-88-5760cmwq 5-40 mL intravenously once as needed5-40 mL, Intravenous, PRN, Line Care, After every [...] mL Midline or Central Line = 20 mL/lumenStart: 21-48-5778ypnd 25 mL intravenously every hour as pnwmcy06 mL, Intravenous, at 100 mL/hr, PRN, If patient receiving piggyback infusions without ordered maintenance IV fluids or with frequent/long duration piggyback infusions, Starting on Thu01/30/21 at 2157 Administer at the same rate as the piggyback being infused.Start: 01-30-2021 End: .9 % sodium chloride bolusStart: .9 % sodium chloride infusionStart: 01-26-2021 End: .9 % sodium chloride bolusStart: .9 % sodium chloride infusionStart: 38-59-5489qhskce chloride flush 0.9 % injection 5-40 mLStart: 88-60-9453jsjpob chloride flush 0.9 % injection 10 mLStart: 09-28-2020 End: .9 % sodium chloride bolusStart: 04-83-8137skrdfp chloride flush 0.9 % injection 10 mLvarenicline 0.5 mg oral tablet (20 sources)Partial Cholinergic Nicotinic AgonistStart: 28-49-8234ucsu 1 tablet by mouth once dailyvarenicline (CHANTIX) 0.5 mg (11)- 1 mg (42) tablet Take 0.5 mg by mouth once daily on Days 1 through 3, THEN 0.5 mg twice daily on Days 4 through 7, THEN 1 mg twice daily on Day 8 and thereafter 42 tablet 03/08/2024 ActiveStart: 10-16-2023 End: 55-76-6032fntl 1 tablet by mouth oncevarenicline (CHANTIX) 0.5 mg (11)- 1 mg (42) tablet TAKE 1 TABLET BY MOUTH DIRECTED PER PACKAGE INSTRUCTIONS 0 10/16/2023 03/08/2024 DiscontinuedStart: 87-64-5354zjgvygvomrq 0.5 mg oral tablet See Instructions, Step 1: Take 1 tablet daily for 3 days. Then 1 tablet twice daily for 4 days. Start 1 week before planned quit date. Stop smoking 8- 35 days after starting medicine if quit date unplanned., # 11 tab(s), Refills(s) 0, Pharmacy:... Start Date: 04/21/22 Status: OrderedStart: 08-27-2021 End: 83-26-1605fuozeskethz (Chantix) 1 mg tablet as needed 08/27/2021 08/08/2024 Discontinued (Therapy completed)work excuse (2 sources)Start: 60-45-0878njtl excuse work excuse, Patient was seen in our clinic and received a procedure on 03/03/2025. She is to be off for recovery from the procedure on 03/04/2025., Print Requisition, Supply Start Date: 03/09/25 Status: Ordered Repeat number: 1Zofran ODT 4 mg Tab-Dis (2 sources)Start: 09-28-1581emhi 1 tablet by mouth every eight hours as needed for nauseaZofran ODT 4 mg Tab-Dis 4 mg = 1 tab(s), Oral, q8hr, PRN Nausea/Vomiting, # 12 tab(s), Refills(s) 0, Pharmacy: [facility]/pharmacy #[id number], 162, cm, 08/08/22 9:11:00 EST, Height/Length Dosing, 83.1, kg, 08/08/22 9:11:00 EST, Weight Dosing Start Date: 08/08/22 Status: Ordered Completed/Discontinued Medications MedicationDrug Class(es)DatesSig (Normalized)Sig (Original)acetaminophen 325 mg / HYDROcodone bitartrate 5 mg oral tablet (2 sources)Opioid Agonist End: 77-40-6371fhpl 1 tablet by mouth every six hours as neededHYDROcodone- acetaminophen ([place]) 5-325 mg tablet Take 1 tablet by mouth every 6 hours if needed. 08/08/2024 Discontinued (Therapy completed)[id number] 200 actuat albuterol 0.09 mg/actuat metered dose inhaler (9 sources)beta2-Adrenergic AgonistStart: 05-30-2025 End: 69-40-0610iwxw 2 puff(s) by inhalation four times daily as neededAlbuterol Sulfate 90 mcg/actuation HFA aerosol inhaler Discontinued INHALATION Four times daily May 30, 2025 12:00am June 29, 2025 12:38pm FreeTextSi puffs Inhalation 4 times a day prn; Note: Source Status: Taking; Refills: 0; Provider: Tegan Jorge AStart: 64-68-3367wezb 2 puff(s) by inhalation four times daily as neededAlbuterol Sulfate HFA 108 (90 Base) MCG/ACT 2 puffs Inhalation 4 times a day prn Jun, ActiveStart: 72-96-1042tuer 2 puff(s) by inhalation four times daily as neededAlbuterol Sulfate HFA 108 (90 Base) MCG/ACT 2 puffs Inhalation 4 times a day prn Jun, ActiveStart: 58-80-0459yvcf 2 puff(s) by inhalation four times daily as neededAlbuterol Sulfate HFA 108 (90 Base) MCG/ACT 2 puffs Inhalation 4 times a day prn Jun, ActiveStart: 55-18-3134qnia 2 puff(s) by inhalation every four hours as neededAlbuterol Sulfate HFA 108 (90 Base) MCG/ACT 2 puffs as needed Inhalation every 4 hrs for 7 days Nov, Not-Taking/PRNStart: 69-27-0360uzls 2 puff(s) by inhalation every four hours as neededAlbuterol Sulfate HFA 108 (90 Base) MCG/ACT 2 puffs as needed Inhalation every 4 hrs for 7 days Nov, Not-TakingStart: 35-66-5144ewkb 2 puff(s) by inhalation every four hours as neededAlbuterol Sulfate HFA 108 (90 Base) MCG/ACT 2 puffs as needed Inhalation every 4 hrs for 7 days Nov, Not-TakingALPRAZolam 0.5 mg oral tablet (10 sources)BenzodiazepineStart: 11-22-2020 End: 68-90-2823xqsg 1 tablet by mouth three times daily as neededALPRAZolam (Xanax) 0.5 mg tablet Take 1 tablet (0.5 mg) by mouth 3 times a day as needed. 11/22/2020 08/08/2024 Discontinued (Therapy completed)Start: 61-98-0941wfse 1 tablet by mouth once daily as needed for anxietyALPRAZolam (XANAX) 0.5 MG tablet TAKE 1 TABLET BY MOUTH DAILY NEEDED FOR ANXIETY 0 11/22/2020 Activeaspirin 81 mg chewable tablet (1 source)Platelet Aggregation Inhibitor, Nonsteroidal Anti-inflammatory Drug End: 02-49-2618rhcr 1 tablet by mouth twice dailyaspirin 81 MG chewable tablet Take 81 mg by mouth 2 times daily 0 09/25/2020 Discontinued (LIST CLEANUP)barium sulfate 60 % suspension 355 mL (1 source)Start: 11-01-2020 End: 07-09-7479askaqn sulfate 60 % suspension 355 mLbenzonatate 200 mg oral capsule (3 sources)Non-narcotic AntitussiveStart: 35-84-9327klax 1 capsule by mouth every eight hoursBenzonatate 200 MG 1 capsule Orally Three times a day for 7 days Nov, Not-Taking/PRNbrexpiprazole 4 mg oral tablet (20 sources)Atypical AntipsychoticStart: 06-26-2021 End: 98-08-2732XLEYLDG 4 MG TABS tabletStart: 01-08-2019 End: 77-37-3658ldlw 1 tablet by mouth once daily at bedtimeBrexpiprazole (Rexulti) 3 mg Tablet Discontinued 4 MG PO Daily at bedtime January 08, 2019 12:00am May 16, 2025 9:20amRexulti ActiveComment on above:Take by mouth once daily.calcium carbonate 1250 mg oral tablet (20 sources)Start: 08-11-2022 End: 27-12-8179wvqm 1 tablet by mouth twice dailyCalcium Carbonate 500 mg calcium (1,250 mg) Tablet Discontinued 500 MG PO Twice daily August 11, 2022 1:00am May 16, 2025 9:24amtake 1 tablet by mouth once dailycalcium carbonate (OSCAL) 500 MG TABS tablet Take 1 tablet by mouth daily Josue melts 0 Suspendedcalcium citrate 0.415 mg/mg / cholecalciferol 0.1 unt/mg oral powder (12 sources)Vitamin D End: 99-96-6279hfrjwli citrate-vitamin D3 500 mg-12.5 mcg /5 gram powd Take by mouth. 0 03/08/2024 DiscontinuedComment on above:Take by mouth.cariprazine 1.5 mg oral capsule (20 sources)Atypical AntipsychoticStart: 06-05-2025 End: 92-13-4363oglo 1 capsule by mouth once dailyCariprazine (Vraylar) 1.5 mg capsule Discontinued 1.5 MG PO Daily June 05, 2025 12:00am July 12, 2025 8:37amStart: 22-05-5868Pcxatan Oral, Daily, Refills(s) 0 Start Date: 01/13/25 Status: Ordered Repeat number: 1ceFAZolin (ANCEF) 2000 mg in dextrose 5 % 50 mL IVPB (1 source)Start: 01-07-2021 End: 87-69-2496xaDXDhzax (ANCEF) 2000 mg in dextrose 5 % 50 mL IVPB chlordiazePOXIDE hydrochloride 25 mg oral capsule (11 sources)BenzodiazepineStart: 06-05-2025 End: 75-69-8732nrws 1 capsule by mouth three times daily as needed Chlordiazepoxide Hcl 25 mg capsule Discontinued 25 MG PO Three times daily as needed June 05, 2025 12:00am June 29, 2025 12:37pmcholecalciferol 1.25 mg oral tablet (9 sources)Vitamin D End: 15-68-9800dagydqumxgegjml (Vitamin D3) 1,250 mcg (50,000 unit) tablet Take 1 tablet (50,000 Units) by mouth every 7 days. 08/08/2024 Discontinued (Therapy completed) End: 91-82-2469Avcupxmrzznlfdn (VITAMIN D3) 125 MCG (5000 UT) TABS Take by mouth daily 0 01/07/2021 Discontinued (LIST CLEANUP)Cholecalciferol (VITAMIN D3) 125 MCG (5000 UT) TABS Take by mouth 0 ActiveclonazePAM 0.5 mg oral tablet (7 sources)BenzodiazepineStart: 01-05-2024 End: 78-89-8378fhhy 1 tablet by mouth twice daily as needed for anxiety clonazePAM (KLONOPIN) 0.5 mg tablet Indications: Panic disorder Take 1 tablet by mouth two times a day as needed for anxiety (Panic attacks) for up to 30 days. 60 tablet 01/05/2024 07/01/2024 Discontinued End: 98-50-1369xaow 1 tablet by mouth twice dailyclonazePAM (KlonoPIN) 0.25 mg disintegrating tablet Take 1 tablet (0.25 mg) by mouth twice a day. 08/08/2024 Discontinued (Therapy completed)cloNIDine hydrochloride 0.1 mg oral tablet (1 source)Central alpha-2 Adrenergic AgonistStart: 02-25-2023 End: 76-06-6863kcgo 1 tablet by mouth twice dailycloNIDine (Catapres) 0.1 mg tablet Take 1 tablet (0.1 mg) by mouth 2 times a day. 02/25/2023 08/08/2024 Discontinued (Therapy completed)cyclobenzaprine hydrochloride 10 mg oral tablet (17 sources)Muscle RelaxantStart: 11-19-2024 End: 16-10-9036maob 1 tablet by mouth three times daily as neededCyclobenzaprine 10 mg tablet Discontinued 10 MG PO Three times daily as needed June 052:00am June 29, 2025 12:38pmStart: 11-10-2022 End: 13-73-0695idke 1 tablet by mouth once daily at bedtimecyclobenzaprine (FLEXERIL) 5 MG tablet TAKE 1 TABLET BY MOUTH ONCE EVERYDAY AT BEDTIME 0 301/01/2024 Discontinued (Stop Taking at Discharge)Start: 08-22-2022 End: 44-53-1310vjxf 1 tablet by mouth three times dailycyclobenzaprine 5 mg Tab 5 mg = 1 tab(s), Oral, TID, X 14 day(s), # 42 tab(s), Refills(s) 0, Pharmacy: [facility]/pharmacy #[id number], 170, cm, 08/22/22 10:41:00 EST, Height/Length Dosing, 85, kg, 08/22/22 10:41:00 EST, Weight Dosing Start Date: 08/22/22 Stop Date: 09/05/22 Status: OrderedStart: 07-27-2020 End: 78-07-5187rhpj 10 mg by mouth three times daily as needed for muscle spasms 10 mg, Oral, 3 TIMES DAILY PRN, Muscle spasms, Starting on Thu01/30/21 at 2157 doxycycline hyclate 100 mg oral capsule (7 sources)Tetracycline-class DrugStart: 05-16-2025 End: 85-22-7077yvsj 1 capsule by mouth every twelve hoursDoxycycline Hyclate 100 mg capsule Discontinued 60 MG PO Every 12 hours May 16, 2025 12:00am May 30, 2025 8:25am FreeTextSi capsule Orally every 12 hrs; Note: Source Status: Not-Taking\PRN; Refills: 0; Provider: Emmanuel AvilaRobert Lee: 31-56-7944qriq 1 capsule by mouth every twelve hoursDoxycycline Hyclate 100 MG 1 capsule Orally every 12 hrs for 7 days Nov, Not-Taking/PRNergocalciferol 1.25 mg oral capsule (15 sources)Provitamin D2 CompoundStart: 07-19-2020 End: 89-88-9048Tgnxocysurqxyf (Vitamin D2) 1,250 mcg (50,000 unit) capsule Discontinued 14167 UNIT PO every week July 19, 2020 1:00am August 19, 2022 8:39amStart: 07-19-2020 End: 65-29-5421cyeb 65499 [IU] by mouth every weekErgocalciferol (Vitamin D2) Discontinued 06399 UNIT PO every week July 19, 2020 1:00am August 19, 2022 8:39am2 ml fentaNYL 0.05 mg/ml injection (3 sources)Opioid AgonistStart: 01-30-2021 End: 31-53-6841uplfnKDR (SUBLIMAZE) injection 50 mcgStart: 01-07-2021 End: 01-87-9230sqzaiABA (SUBLIMAZE) injection 25 mcggabapentin 600 mg oral tablet (20 sources)Anti-epileptic AgentStart: 01-13-2025 End: 71-07-4066Earnuzrlzx 600 mg tablet Discontinued MG May 30, 2025 12:00am June 05, 2025 12:23pmStart: 10-14-2024 End: 18-90-4383hysg 1 capsule by mouth in the morning, then take 1 capsule by mouth in the evening, then take 1 capsule by mouth at bedtimegabapentin (Neurontin) 300 MG capsule Take 1 capsule by mouth in the morning and 1 capsule in the evening and 1 capsule before bedtime. 10/14/2024 07/03/2025 Discontinued (Therapy completed)Start: 96-12-3659swho 1 capsule by mouth three times daily gabapentin 300 mg Cap 300 mg = 1 cap(s), Oral, TID, # 90 cap(s), Refills(s) 0, Pharmacy: [facility]/pharmacy #[id number], 170, cm, 10/14/24 9:02:00 EST, Height/Length Dosing, 90.2, kg, 10/14/24 9:02:00 EST, Weight Dosing Start Date: 10/14/24 Status: OrderedStart: 09-24-2022 End: 90-82-7037aqeh 1 capsule by mouth twice dailygabapentin 300 mg Cap 300 mg = 1 cap(s), Oral, BID, Refills(s) 0, Other (see comment) Start Date: 11/21/22 Status: Orderedibuprofen 600 mg oral tablet (6 sources)Nonsteroidal Anti-inflammatory DrugStart: 05-30-2025 End: 98-70-8520pjnj 4 tablets by mouth every twenty-four hours for painIbuprofen 600 mg tablet Discontinued 600 MG PO EVERY 4-6 HOURS as needed for pain 20 5 0 May 30, 2025 12:00am October 16th, 2025 12:38pm do not exceed 4 doses in a 24 hour periodIbuprofen Not-Taking/PRNIbuprofen Not-Takingiohexol (OMNIPAQUE 240) injection 30 mL (1 source)Start: 01-08-2021 End: 79-66-1863scoogru (OMNIPAQUE 240) injection 30 mLiopamidol (ISOVUE-370) 76 % injection 18 mL (2 sources)Start: 02-04-2021 End: 52-18-8809pidsvqwid (ISOVUE-370) 76 % injection 18 mLStart: 01-30-2021 End: 16-26-0565gvlnvripe (ISOVUE-370) 76 % injection 18 mLiopamidol (ISOVUE-370) 76 % injection 75 mL (2 sources)Start: 02-04-2021 End: 09-00-7769zkniogtiv (ISOVUE-370) 76 % injection 75 mLStart: 01-30-2021 End: 20-35-2106ozrrexqqf (ISOVUE-370) 76 % injection 75 mLiv contrast (will be provided with radiology test) (4 sources)Start: 07-04-2024 End: 23-61-9877ho contrast (will be provided with radiology test) Indications: Mass of upper [...] Once exam is complete flush line and de-accessaccording to line specific nursing protocol in the MR contrast administration guidelines link 1 Each 07/04/2024 07/05/2024 ExpiredStart: 03-08-2024 End: 59-29-4708rx contrast (will be provided with radiology test) Indications: Mass of upper outer quadrant of left breast MRI LT Breast Bx Inject, intravenously, once for 1 dose. No IV access, insert saline lock prior to the beginning of sedation, infusion, injection of imaging exam. Discontinue saline lock postexam. If Pt has a central line or IVAD, may access for administration according to line specific nursing protocol. Once exam is complete flush line and de-access according to line specific nursing protocol in the MR contrast administration guidelines link 1 Each 0 03/08/2024 03/09/2024 ActiveStart: 11-20-2022 End: 41-73-8532bg contrast (will be provided with radiology test) [...] guidelines link. 1 Each 0 11/20/2022 11/21/2022 ActiveComment on above:MRV Brain Inject, intravenously, once for 1 dose. [...] protocol in the MR contrast administration guidelines link.1 ml ketorolac tromethamine 30 mg/ml cartridge (1 source)Nonsteroidal Anti-inflammatory Drug, Cyclooxygenase InhibitorStart: 01-08-2021 End: 24-04-8844iyscdpeus (TORADOL) injection 30 mgLidocaine (2 sources)Antiarrhythmic, Amide Local AnestheticStart: 07-11-2024 End: 07-11-2024X (OR/PROCEDURE) PRN, Starting on Thu07/11/24 at 0901, Until Thu07/11/24 at 0901, IntraprocedureStart: 09-28-2020 End: 63-23-3112lqqaytbbx PF 1 % injection 1 mLlisinopril 5 mg oral tablet (20 sources)Angiotensin Converting Enzyme InhibitorStart: 08-14-2022 End: 99-50-8893dtrh 1 tablet by mouth once dailyLisinopril 5 mg Tablet Discontinued 5 MG PO Daily August 19, 2022 1:00am July 03, 2023 10:07am LORazepam 0.5 mg oral tablet (20 sources)BenzodiazepineStart: 12-31-2023 End: 75-94-6621ibty 1 tablet by mouth three times daily as needed for anxiety Lorazepam (Ativan) 0.5 mg tablet Discontinued 0.5 MG PO Three times daily as needed for anxiety 03 03December 31, 2023 12:00am May 16, 2025 9:25am Anxiety Anxiety disorder, unspecifiedStart: 01-31-2020 End: 38-12-9513penj 1 tablet by mouth twice daily as needed for anxietyLorazepam 1 mg tablet Discontinued 1 MG PO Twice daily as needed for Anxiety July 18, 2020 1:00am August 19, 2022 8:39am End: 02-03-3933qjpj 1 tablet by mouth every eight hours as neededLORazepam (Ativan) 1 mg tablet Take 1 tablet (1 mg) by mouth every 8 hours if needed. 08/08/2024 Discontinued (Therapy completed)Magic Mouthwash (10 sources)Start: 02-06-2022 End: 56-68-0712Eifqc Mouthwash Magic Mouthwash, 5 mL, Oral, TID, 240 mL, 0, Swish and swallow. 30 mL Nystatin + 210 mL Diphenhydramine + #5 tabs 20 mg hydrocortisone + Doxycycline 1,000 mg (tabs/cap)., [facility]/pharmacy#[id number], Compound, 170, cm, 02/06/22 9:17:00 EDT, Height/Length Dos... Start Date: 02/06/22 Stop Date:02/20/22 Status: OrderedmethylPREDNISolone 4 mg oral tablet (11 sources)CorticosteroidStart: 12-03-2018 End: 71-88-1932ntfbmeBKXMTYQpznsq 4 MG as directed Orally take as directed for 6 days Nov, Not-Taking/IKB152 ml metroNIDAZOLE 5 mg/ml injection (1 source)Nitroimidazole AntimicrobialStart: 01-07-2021 End: 02-17-8181adoixneqyceko (FLAGYL) 500 mg in NaCl 100 mL IVPB premixMultiple Vitamins-Minerals (MULTI-DAY PLUS MINERALS PO) (1 source)Start: 12-37-6456Icvhvmef Vitamins-Minerals (MULTI-DAY PLUS MINERALS PO) Take by mouth 0 07/01/2021 SuspendedMultiple Vitamins-Minerals (THERAPEUTIC MULTIVITAMIN-MINERALS) tablet (5 sources)take 1 tablet by mouth once dailyMultiple Vitamins-Minerals (THERAPEUTIC MULTIVITAMIN-MINERALS) tablet Take 1 tablet by mouth daily Josue melts with iron 0 Suspendedtake 1 tablet by mouth once dailyMultiple Vitamins- Minerals (THERAPEUTIC MULTIVITAMIN-MINERALS) tablet Take 1 tablet by mouth daily Josue melts with iron 0 Activemultivitamin with minerals tablet (1 source)Start: 07-01-2021 End: 90-93-1317dktb 1 tablet by mouth once dailymultivitamin with minerals tablet Take 1 tablet by mouth once daily. 07/01/2021 08/08/2024 Discontinued (Therapy completed)naltrexone 380 mg injection (20 sources)Opioid AntagonistStart: 08-15-2023 End: 93-50-4711yaacsq 380 mg by intramuscular injection every monthNaltrexone Microspheres (Vivitrol) 380 mg suspension,extended rel recon Discontinued 380 MG IM every month August 15, 2023 1:00am December 31, 2023 12:00pm Not planning on taking it this monthStart: 03-12-2023 End: 83-43-3650bgut 1 tablet by mouth once dailynaltrexone 50 mg tablet Indications: Chronic alcoholism in remission (HCC) Take 1 tablet by mouth once daily. 90 tablet 3 03/08/2024 07/01/2024 DiscontinuedStart: 62-75-4699jzer 1 tablet by mouth once dailynaltrexone 50 mg oral tablet 50 mg = 1 tab(s), Oral, Daily, # 30 tab(s), Refills(s) 0 Start Date: 09/24/22 Status: Ordered End: 81-37-7037ocbovqnahv ER (VivitroL) injection Inject 4 mL (380 mg) into the muscle. 08/08/2024 Discontinued (Therapy completed)ondansetron 4 mg disintegrating oral tablet (20 sources)Serotonin-3 Receptor AntagonistStart: 06-05-2025 End: 04-75-8726yrfm 1 tablet by mouth every eight hoursOndansetron 4 mg tablet,disintegrating Discontinued 4 MG PO Every 8 hours June 05, 2025 12:00am June 29, 2025 12:38pmStart: 50-72-6892qboinfujome ODT (Zofran-ODT) 4 MG disintegrating tablet DISSOLVE 1 TABLET ON THE TONGUE ONCE EVERY 4 HOURS NEEDED FOR NAUSEA AND VOMITING FOR 3 DAYS 04/12/2025 ActiveStart: 07-25-2024 take 1 tablet by mouth every eight hours as neededondansetron orally disintegrating (ZOFRAN ODT) 4 mg disintegrating tablet Take 1 tablet by mouth every 8 hours as needed for nausea/vomiting. 30 tablet 07/25/2024 ActiveStart: 09-18-2023 End: 80-45-4367hzqtuqtzwpc (ZOFRAN) injection 4 mgStart: 21-16-5636zrmo 1 tablet by mouth twice dailyZofran 8 mg Tab 8 mg = 1 tab(s), Oral, BID, # 6 tab(s), Refills(s) 1, Pharmacy: [facility]/pharmacy #[id number],162, cm, 08/08/22 9:11:00 EST, Height/Length Dosing, 83.1, kg, 08/08/22 9:11:00 EST, Weight Dosing Start Date: 08/14/22 Status: Ordered Quantity: 6.0 Unit: tab(s) Repeat number: 2 Indication: NauseaStart: 01-30-2021 End: 13-06-2422oqtbqjfhobj (ZOFRAN) injection 4 mgStart: 47-84-1280ijdodkgtovb (ZOFRAN) injection 4 mgStart: 18-37-5442ndcc 1 tablet by mouth every four hours as neededondansetron (ZOFRAN-ODT) 4 MG disintegrating tablet DISSOLVE ONE TABLET BY MOUTH EVERY 4 HOURS NEEDED 0 11/26/2020 ActiveStart: 09-28-2020 End: 43-31-4830hggnfpzebbh (ZOFRAN) injection 4 mgondansetron (Zofran) 4 MG tablet Take by mouth Activepantoprazole 40 mg delayed release oral tablet (20 sources)Proton Pump InhibitorStart: 06-05-2025 End: 25-99-9325rbrm 1 tablet by mouth once dailyPantoprazole 40 mg tablet,delayed release (DR/EC) Discontinued 40 MG PO Daily June 05, 2025 12:00am July 12, 2025 8:38amStart: 70-68-4016Fzpeubutpoos [address] Tab Refills(s) 0 Start Date: 07/01/21 Status: OrderedStart: 06-27-2020 End: 06-46-3764nbow 1 tablet by mouth once dailyPantoprazole 40 mg tablet,delayed release (DR/EC) Discontinued 40 MG PO Daily July 18, 2020 1:00am May 16, 2025 9:25am End: 01-80-3761ahan 1 tablet by mouth once dailypantoprazole (ProtoNix) 20 mg EC tablet Take 1 tablet (20 mg) by mouth once daily. 08/08/2024 Discontinued (Therapy completed)Comment on above:Take 40 mg by mouth once daily.PARoxetine hydrochloride 30 mg oral tablet (1 source)Serotonin Reuptake Inhibitor End: 96-72-3203ocuz 1 tablet by mouth once dailyPARoxetine (Paxil) 30 mg tablet Take 1 tablet (30 mg) by mouth once daily. 08/08/2024 Discontinued (Therapy completed)100 ml potassium chloride 0.1 meq/ml injection (1 source)Start: 01-08-2021 End: 06-56-0381wqszmqqno chloride 10 mEq/100 mL IVPB (Peripheral Line) promethazine hydrochloride 25 mg oral tablet (20 sources)PhenothiazineStart: 08-15-2023 End: 67-07-4743gtyj 1 tablet by mouth every six hours as needed for nausea and vomitingPromethazine 25 mg tablet Discontinued 25 MG PO Q6H as needed for nausea and vomiting 15 2022 1:00am December 31, 2023 12:00pmStart: 71-75-8529Qarbhwedk Refills(s) 0 Start Date: 08/22/22 Status: OrderedStart: 08-21-2022 End: 52-90-7589rpxa 1 tablet by mouth every six hours as needed for nausea Promethazine 25 mg tablet Discontinued 25 MG PO Q6H as needed for Nausea 10 0 August 21, 2022 1:00am July 03, 2023 10:07amStart: 99-16-5684vnridt 12.5 mg by intramuscular injection every six hours as needed for ewlmqz16.5 mg, Intravenous, EVERY 6 HOURS PRN, Nausea, Vomiting, Starting on Thu01/30/21 at 2157 Recommended route is IM. For IV administration, dilute to 10ml with normal saline. Must be administered over at least 10 minutes.Start: 01-07-2021 End: 92-45-0407rdbb 1 tablet by mouth every six hours as needed for nausea promethazine (PHENERGAN) 25 MG tablet Take 1 tablet by mouth every 6 hours as needed for Nausea 80 tablet 0 01/08/2021 01/28/2021 ActiveStart: 01-07-2021 promethazine (PHENERGAN) injection 12.5 mgStart: 62-65-7062njrvficwabzh (PHENERGAN) injection 12.5 mgQUEtiapine 100 mg oral tablet (20 sources)Atypical AntipsychoticStart: 07-19-2020 End: 17-18-9040fboh 1 tablet by mouth once daily at bedtimeQuetiapine 100 mg tablet Discontinued 100 MG PO Daily at bedtime July 19, 2020 1:00am 2021 8:39amStart: 01-08-2019 End: 19-28-6346wbjt 3 tablets by mouth once daily at bedtimeQuetiapine (Seroquel) 50 mg Tablet Discontinued 150 MG PO Daily at bedtime January 08, 2019 12:00amNove2019 1:34amSEROquel Not-Taking/PRNSEROquel Not-Taking End: 12-92-2500PVFrbiokyp (SEROQUEL) 100 MG tablet Take 50 mg by mouth daily 0 12/24/2020 Discontinued (LIST CLEANUP)Semaglutide (9 sources)Start: 12-31-2023 End: 20-06-4339Nqtziiffrtf (Ozempic) 0.25 mg or 0.5 mg (2 mg/3 mL) pen injector Discontinued 0.5 MG SUBCUT every week December 31, 2023 12:00am May 16, 2025 9:25am for 4 weeksStart: 10-20-5259Xfivw: 93-90-0396Hyjrjltaoul (Ozempic) 0.25 mg or 0.5 mg (2 mg/3 mL) pen injector Active 0.5 MG SUBCUT every week December 30, 2023 11:00pm for 4 weeksStart: 17-41-6706Khacybeodru (Ozempic) 0.25 mg or 0.5 mg (2 mg/3 mL) pen injector Active 0.5 MG SUBCUT every week December 31, 2023 12:00am for 4 weeksSEMAGLUTIDE SUBCUTANEOUS (3 sources) End: 42-91-3830TMYWADJXEPU SUBCUTANEOUS Inject subcutaneously. 0 03/08/2024 DiscontinuedSEMAGLUTIDE SUBCUTANEOUS Inject subcutaneously. 0 Activesucralfate 1000 mg oral tablet (13 sources)Aluminum ComplexStart: 07-30-2023 End: 25-05-9000jnxh 1 tablet by mouth four times dailySucralfate 1 gram tablet Discontinued 1 GM PO Four times daily August 15, 2023 1:00am December 31, 2023 12:00pmSUMAtriptan (3 sources)Serotonin-1b and Serotonin-1d Receptor AgonistImitrex Not-Taking/PRN Imitrex Not-Takingterbinafine 250 mg oral tablet (15 sources)Allylamine AntifungalStart: 07-19-2020 End: 75-36-6666bats 1 tablet by mouth once dailyTerbinafine Hcl 250 mg tablet Discontinued 250 MG PO Daily July 19, 2020 1:00am July 20, 2020 11:10amtopiramate 100 mg oral tablet (20 sources)Start: 08-15-2023 End: 19-69-5806Mzbrobmwls (Topamax) 100 mg tablet Discontinued 50 MG PO Daily August 15, 2023 12:47pm 2024 9:25amStart: 11-20-2022 End: 31-07-4404cvciagqbki (TOPAMAX) 100 mg tablet Take 1 tablet by mouth twice daily. Reduce to 50mg for 1-2 weeks, then 25mg for 1-2 weeks, then stop 0 11/20/2022 06/03/2023 DiscontinuedStart: 08-12-2022 End: 95-23-2446Vnvsyssepv (Topamax) 100 mg Tablet Discontinued 50 MG PO Twice daily 0 30 0 August 12, 2022 5:17pm August 15, 2023 12:47pmStart: 01-08-2019 End: 06-55-2724zzxc 1 tablet by mouth once daily at bedtimeTopiramate (Topamax) 100 mg Tablet Discontinued 100 MG PO Daily at bedtime January 08, 2019 12:00am August 12, 2022 5:17pmtake 1 tablet by mouth in the morningtopiramate (Topamax) 25 MG tablet Take 25 mg by mouth in the morning and 25 mg before bedtime. ActiveTopamax Not-Taking/PRNTopamax Not-TakingComment on above:Take 100 mg by mouth twice daily.Take 1 tablet by mouth twice daily. Reduce to 50mg for 1-2 weeks, then 25mg for 1-2 weeks, then stoptraZODone hydrochloride 100 mg oral tablet (20 sources)Serotonin Reuptake InhibitorStart: 05-16-2025 End: 63-44-4315rlky 1 tablet by mouth once daily at bedtimeTrazodone 100 mg tablet Discontinued 100 MG PO Daily at bedtime May 16, 2025 12:00am 2024 8:38amStart: 19-16-7101wuzrwifgz Refills(s) 0 Start Date: 08/22/22 Status: OrderedStart: 08-11-2022 End: 25-99-8853snrk 1 tablet by mouth once daily at bedtimeTrazodone 100 mg Tablet Discontinued 100 MG PO Daily at bedtime August 11, 2022 1:00am July 03, 2023 10:07amStart: 01-31-2022 End: 72-91-6503tvxl 1 tablet by mouth once daily at bedtimetraZODONE 50 mg Tab 50 mg = 1 tab(s), Oral, Once a day (at bedtime), X 7 day(s), # 7 tab(s), Refills (s) 0, Pharmacy: [facility]/pharmacy #[id number], 170, cm, 01/31/22 16:58:00 EDT, Height/Length Dosing, 90, kg, 01/31/22 16:58:00 EDT, Weight Dosing Start Date: 01/31/22 Stop Date: 02/07/22 Status: Orderedtriamcinolone acetonide 1 mg/ml topical cream (7 sources)CorticosteroidStart: 03-08-2024 End: 93-89-2515gtsijbzmvuino acetonide (KENALOG) 0.1 % cream Indications: Dermatitis Apply to affected area two times a day. 28.4 g 03/08/2024 07/01/2024 DiscontinuedStart: 11-02-2015 End: 41-99-9839xpfqriewqzrwe (Kenalog) 0.1 % ointment Apply topically twice a day. 11/02/2015 08/08/2024 Discontinued (Therapy completed)ziprasidone 20 mg oral capsule (18 sources)Atypical AntipsychoticStart: 06-05-2025 End: 33-43-1088pbzw 1 capsule by mouth twice daily at mealtimeZiprasidone Hcl 20 mg capsule Discontinued 20 MG PO Twice daily June 05, 2025 12:00am July 12, 2025 8:38am give with food (meal/snack) Problems Active Problems Problem ClassificationProblemDateDocumented DateEpisodic/ChronicAbdominal pain (20 sources)Generalized abdominal pain; Translations: [Generalized abdominal pain]Onset: 89-93-9394XudvdkdpQqghfvhh foot deformities (5 sources)Acquired bilateral pes planus; Translations: [Flat feet]Onset: 457354-86-1124Ltkyyewnfy disorders (19 sources)Adjustment disorder with depressed mood; Translations: [Adjustment disorder with depressed mood]Onset: 55-47-8588EvtgwkaSobieyh-related disorders (20 sources)Alcohol abuse; Translations: [Alcohol abuse, uncomplicated]Onset: 36-04-6236YggcpnoHoduiyot reactions (1 source)Inflammatory dermatosis; Translations: [Dermatitis, unspecified] 38-12-7812YosavlorMskjlmt disorders (20 sources)Mixed anxiety and depressive disorder; Translations: [Anxiety disorder, unspecified]Onset: 012786-38-3003DqszfrxXfmwsnigw and vision defects (20 sources)Blurring of visual image; Translations: [Other visual disturbances] Onset: 933470-05-4568LzehimhiGurrlai dysrhythmias (20 sources)Palpitations; Translations: [Palpitations]Onset: 08-08-2024 05-25-1159OxbpoepmMetzgkn obstructive pulmonary disease and bronchiectasis (2 sources)Bronchitis, not specified as acute or chronic; Translations: [Bronchitis]Onset: 01-01-3692TuojwsivBbgumabnfx associated with dizziness or vertigo (3 sources)Dizziness and giddiness; Translations: [Dizziness and giddiness] Onset: 32-85-7813OwnokygyEachluav atherosclerosis and other heart disease (11 sources)Angina pectoris; Translations: [Angina pectoris, unspecified]Onset: 74-07-283291765284-30-7231GwtpuxfXaveesup of white blood cells (8 sources)Leukocytosis; Translations: [Elevated white blood cell count, unspecified]Onset: 05-81-9762PndlpneEakxqgdkji disorders (20 sources)Gastroesophageal reflux disease without esophagitis; Translations: [Gastro-esophageal reflux disease with esophagitis]Onset: 05-23-2020 Resolved: 619602-79-5488PztvzerTnfymyenm hypertension (20 sources)Essential hypertension; Translations: [Essential (primary) hypertension]Onset: 08-08-2022 Resolved: 75-19-3635JvrawfuXrugxtdn; including migraine (20 sources)Tension-type headache; Translations: [Tension-type headache, unspecified, not intractable]Onset: 368565-05-5535JydkrilPnffxedz; including migraine (20 sources)Headache; Translations: [Headache, unspecified]Onset: 08-08-2022 EpisodicHeadache; including migraine (4 sources)Headache; including migraine; Translations: [HEADACHE UNSPECIFIED] Onset: 68-04-3167Kbcob disorders and dislocations; trauma-related (11 sources)Derangement of left knee; Translations: [Unspecified internal derangement of left knee]Onset: 198328-24-9460RcgnnnuAxdokssgnnwpc (13 sources)Localized enlarged lymph nodes; Translations: [Localized enlarged lymph nodes]Onset: 47-89-5052IwppvamlMmkehhm and fatigue (20 sources)Asthenia; Translations: [Weakness]Onset: 134108-81-8298 EpisodicMood disorders (20 sources)Bipolar disorder; Translations: [Bipolar disorder, unspecified] Onset: 960360-45-5748HcvzphpWucu disorders (1 source)Mood disorders; Translations: [Depression, unspecified]Onset: 52-30-5252Ovaspt and vomiting (18 sources)Vomiting, unspecified; Translations: [Nausea]Onset: 06-12-2022 EpisodicNonmalignant breast conditions (1 source)Fibrocystic changes of bilateral breasts; Translations: [Diffuse cystic mastopathy of right breast]16-62-7007HbhotpaAkhoiauxlqxq breast conditions (20 sources)Hypertrophy of breast; Translations: [Hypertrophy of breast]Onset: 04-88-7233MjxfztsaYlgqykthroa chest pain (12 sources)Chest pain, unspecified; Translations: [Other chest pain]Onset: 24-60-7406PmeislpiHrqdczxceeb deficiencies (20 sources)Vitamin D deficiency; Translations: [Vitamin D deficiency, unspecified]Onset: 635007-12-4158YatlqkgUwxlfwouxlhqxn (20 sources)Arthritis; Translations: [Unspecified osteoarthritis, unspecified site]Onset: 769777-12-3346HzteajgRhklj acquired deformities (1 source)Spondylolisthesis; Translations: [Spondylolisthesis, site unspecified] Onset: 49-44-9923CgedazjpFgxqr aftercare (1 source)Other ferry terminal agent (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; Translations: [OTH RESIDENTIAL CURRENT DRUG THERAPY]Onset: 29-04-8223UoqcfmfzGypek bone disease and musculoskeletal deformities (3 sources)Segmental and somatic dysfunction; Translations: [Segmental and somatic dysfunction of head region]Onset: 26-05-6538SqghsikxIesqw bone disease and musculoskeletal deformities (7 sources)Cervical somatic jrykzlfpcmm16-98-3340SfktqirsDsxmk bone disease and musculoskeletal deformities (7 sources)Somatic dysfunction of head gkjewa58-07-6527TteslowpDgtmz bone disease and musculoskeletal deformities (7 sources)Somatic dysfunction of thoracic -26-0273GpioofugTxuvr circulatory disease (1 source)Raynaud's syndrome without gangrene; Translations: [Raynaud's syndrome without gangrene]Onset: 90-21-2194WxhgerqDcpwa connective tissue disease (14 sources)Disorder of oral soft ucsfecp51-33-0172DdseokvaHacbm connective tissue disease (1 source)Spasm; Translations: [Other muscle spasm]Onset: 61-88-7997Rrfpfyft Other connective tissue disease (4 sources)Muscle spasm of cervical muscle of usgo37-96-3248EpzhdupvZevsl connective tissue disease (3 sources)Muscle pain; Translations: [Myalgia, unspecified site]09-21-2024 EpisodicOther connective tissue disease (5 sources)Pain in both feet; Translations: [Bilateral foot pain]Onset: Other eye disorders (16 sources)Optic disc edema; 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]Onset: 558167-17-5870AhvyuybDqnbz gastrointestinal disorders (1 source)Other intestinal malabsorption; Translations: [Other intestinal malabsorption]Onset: 44-20-2725UcxxcjpLfohi gastrointestinal disorders (14 sources)Intestinal malabsorption; Translations: [Intestinal malabsorption, unspecified]Onset: 792138-15-3752HyqlogcHqjub gastrointestinal disorders (20 sources)Mass of yfrpmmwa00-93-6355ZlznldqkZumeo gastrointestinal disorders (8 sources)Cyst of ofzenwz87-29-9222NepcughgSriqu injuries and conditions due to external causes (10 sources)Hematoma; Translations: [Other injury of unspecified body region, initial encounter]Onset: 386779-01-2640FxwyhlurVhmwy lower respiratory disease (1 source)Cough; Translations: [Cough, unspecified]Onset: 90-56-0227Bxcjygrx Other nervous system disorders (20 sources)Benign intracranial hypertension; Translations: [Benign intracranial hypertension]Onset: 40-52-1903NzrkqvsQtowx nervous system disorders (2 sources)Raised intracranial psayxmsw19-40-6924YmxrqvnCwwvj nervous system disorders (1 source)Benign intracranial hypertension; Translations: [Idiopathic intracranial hypertension]Onset: 07-44-2696LdukbnjFftvo nervous system disorders (16 sources)Ulnar neuropathy; 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 nerve, unspecified upper limb]Onset: 972319-96-8846CcoqfoiSojac nervous system disorders (17 sources)Chronic pain; Translations: [Other chronic pain]Onset: 01-31-2024 73-86-4571PvmxeghOpilk nervous system disorders (20 sources)Chronic pain kxjeevoq55-81-4481NvmihxaFjowf nervous system disorders (11 sources)Difficulty walking; Translations: [Difficulty in walking, not elsewhere classified]Onset: 321234-69-0480ZazbqklJlbyu nervous system disorders (11 sources)Tarsal tunnel syndrome; Translations: [Tarsal tunnel syndrome, unspecified lower limb]Onset: 279292-98-9916PojkobqAttaz nervous system disorders (1 source)Postoperative pain ; Translations: [Other acute postprocedural pain] EpisodicOther nervous system disorders (1 source)Dysphasia; Translations: [Dysphasia]Onset: 67-53-6104RbmxajmlKzcyu nervous system disorders (4 sources)Ataxia; Translations: [Ataxia, unspecified]62-65-9980ZnwxgufoAszcq nervous system disorders (20 sources)Paresthesia; Translations: [Paresthesia of skin]Onset: 01-31-2024 23-81-1134BxdbjfbbQyjnn nutritional; endocrine; and metabolic disorders (7 sources)Morbid obesity; Translations: [Morbid (severe) obesity due to excess calories]Onset: 852055-96-7459HhaxsrnVdswl nutritional; endocrine; and metabolic disorders (4 sources)Obesity; Translations: [Obesity, unspecified]Onset: 01-29-2022 28-07-3485RlfjquwCkuuf nutritional; endocrine; and metabolic disorders (2 sources)Obese class I; Translations: [Body mass index (BMI) 30.0-30.9, adult] Onset: 98-28-4335VhtovmbPysze nutritional; endocrine; and metabolic disorders (20 sources)Body mass index 30+ - obesity; Translations: [Obesity, unspecified] Onset: 790445-50-4232XjaewezDknwi nutritional; endocrine; and metabolic disorders (1 source)Obesity caused by energy imbalance; Translations: [Other obesity due to excess calories]15-01-3563BqoltkrXqmug nutritional; endocrine; and metabolic disorders (1 source)Hypercalcemia; Translations: [Hypercalcemia]42-28-8853FveiepbPhega nutritional; endocrine; and metabolic disorders (15 sources)Overweight; Translations: [Overweight]Onset: 56-92-1013CpgpubhkBwqhk nutritional; endocrine; and metabolic disorders (20 sources)Body mass index 25-29 - overweight; Translations: [Overweight]Onset: 326494-79-3933ZrxrjearJwacq skin disorders (1 source)Skin finding; Translations: [Excessive and redundant skin and subcutaneous tissue]EpisodicOther skin disorders (8 sources)Loss of hair; Translations: [Nonscarring hair loss, unspecified] 90-81-6957GfpocqmnRtihieoliuq disorders (20 sources)Borderline personality disorder; Translations: [Borderline personality disorder]Onset: 548391-14-4011LtyfmjvXnnuerlhc by psychotropic agents (20 sources)Intentional benzodiazepine overdose; Translations: [Poisoning by benzodiazepines, intentional self-harm, initial encounter]69-37-6118Nhxywong Residual codes; unclassified (12 sources)Patient encounter status; Translations: [Encounter for procedure for purposes other than remedying health state, unspecified]EpisodicResidual codes; unclassified (4 sources)Procedure and treatment not carried out due to patient leaving prior to being seen by health care provider; Translations: [PROC AND TX NOT CARRIED OUT PT LEAVE]Onset: 23-30-6428EtyruqftZmvfxvmu codes; unclassified (1 source)Pelvic organ finding; Translations: [Acquired absence of both cervix and uterus]Onset: 60-24-8223HhalupjzTwjuouzjs-related disorders (20 sources)Smoker; Translations: [Nicotine dependence]Onset: 02-06-2022 74-87-7565LdghjosJgjgqrx on above:Added secondary to documentation in Social History.Syncope (1 source)Syncope and collapse; Translations: [Syncope and collapse]Onset: 81-74-4198JnlpfhxeVugwzwgivhvz (5 sources)History of clinical finding in subject; Translations: [History of nicotine use]Onset: 877167-68-8907Tqrpjoigcmgd (2 sources)Patient encounter status; Translations: [Preoperative testing] Unclassified (20 sources)History of bypass of stomachOnset: 654143-88-2266Icixdruekkjm (1 source)CONTACT W/AND (SUSP) EXPOS COVID-19; Translations: [CONTACT W/AND (SUSP) EXPOS COVID-19]Onset: 67-11-3319Bqcsgkogpywz (3 sources)You may use alternating doses of ibuprofen (Motrin) 600 mg followed 3 hours later by 2 extra strength Tylenol's, followed 3 hours later by ibuprofen 600 mg. You may continue this repeating schedule for pain management.Viral infection (1 source)COVID-19; Translations: [COVID-19]Onset: 04-08-2022 Past or Other Problems Problem ClassificationProblemDateDocumented DateEpisodic/ChronicAbdominal hernia (7 sources)Hiatal hernia; Translations: [Diaphragmatic hernia without obstruction or gangrene] Resolved: 97-06-8612AoehyupzJiwbxgra foot deformities (20 sources)Acquired bilateral pes planus; Translations: [Flat foot [pes planus] (acquired), right foot]Onset: 868861-67-9171ImgutqwfUkgchdnsxtdrev/social admission (11 sources)Education and/or schooling finding; Translations: [Problems related to education and literacy, unspecified]Onset: 329106-25-2696Aqwmbsof Complications of surgical procedures or medical care (20 sources)Reaction to lumbar puncture; Translations: [Other reaction to spinal and lumbar puncture]Onset: 11-48-4601UwmobtcjWojvhlevek and other anemia (20 sources)Iron deficiency anemia; Translations: [Iron deficiency anemia, unspecified]Onset: 472753-21-8076LfcpymyuOkkcaag on above:noted in 09/16/2024 [facility] Records page 5. added per [facility] CDI policy.Diseases of mouth; excluding dental (4 sources)Lesion of oral mucosa; Translations: [Unspecified lesions of oral mucosa]Onset: 13-57-7281KtmwwblxUbqjf of unknown origin (3 sources)Fever, unspecified; Translations: [FEVER UNSPECIFIED]Onset: 48-42-6146UjrznpnuFjgah and electrolyte disorders (6 sources)Dehydration; Translations: [Dehydration]Onset: 01-26-2021 Resolved: 60-34-0236XqkmaptxPwzuivtcc disorders (6 sources)Excessive and frequent menstruation with irregular cycle; Translations: [Menorrhagia]Onset: 10-30-2022 Resolved: 20-75-3751JsobbuaMuajgrywcwk deficiencies (16 sources)Iron deficiency; Translations: [Serum iron low]Onset: 05-27-2023 56-88-7437IrxcpkfuFzkca complications of (20 sources)Poor growth affecting management; Translations: [Maternal care for other known or suspected poor growth, unspecified trimester, not applicable or unspecified]Onset: 07-03-2008 Resolved: 767809-02-6079YbiapgftRzoou connective tissue disease (20 sources)Pain in both feet; Translations: [Pain in right foot]Onset: 904409-49-4201UueavsyhWedkx connective tissue disease (20 sources)Plantar fasciitis; Translations: [Plantar fascial fibromatosis] Onset: 03-08-2024 Resolved: 337846-95-7812WgmigzatIehce connective tissue disease (20 sources)Muscle weakness; Translations: [Muscle weakness (generalized)]Onset: 613808-54-4929CkczhscaHbogo gastrointestinal disorders (20 sources)History of bypass of stomach; Translations: [Bariatric surgery status]Onset: 38-17-9737ZhaphbutGydhh gastrointestinal disorders (5 sources)Bariatric surgery status; Translations: [Bariatric surgery status] Onset: 36-42-4465XgsdwnodSrbxu gastrointestinal disorders (1 source)Constipation, unspecified; Translations: [CONSTIPATION UNSPECIFIED] Onset: 11-94-8908EummbwovHrbku gastrointestinal disorders (1 source)Other specified disorders of peritoneum; Translations: [OTHER SPEC DISORDERS PERITONEUM]Onset: 27-55-6320PunbbfaxJkrbq lower respiratory disease (20 sources)Dyspnea; Translations: [Shortness of breath]Onset: 08-08-2024 97-62-7556RfrpysjoMmrxb lower respiratory disease (2 sources)Shortness of breath; Translations: [Shortness of breath]Onset: 66-62-9563FwvpnwuaSmgez nervous system disorders (16 sources)Numbness; Translations: [Anesthesia of skin]Onset: 01-31-2024 36-35-0316EkwpbyvdWhjdc nervous system disorders (1 source)Ataxia, unspecified; Translations: [Ataxia, unspecified]Onset: 64-97-3519JkhajlhjYwgcu non-traumatic joint disorders (11 sources)Sinus tarsi syndrome of right ankle; Translations: [Pain in right ankle and joints of right foot]Onset: 818640-93-1426MherrppqFdxfp nutritional; endocrine; and metabolic disorders (20 sources)Body mass index 40+ - severely obese; Translations: [Morbid (severe) obesity due to excess calories]Onset: 05-16-2020 Resolved: 19-26-1594SjzexaoLzwuy nutritional; endocrine; and metabolic disorders (20 sources)Overweight in adulthood with body mass index of 25 or more but less than 30; Translations: [Body mass index (BMI) 29.0-29.9, adult]Onset: 02-06-2022 EpisodicOther nutritional; endocrine; and metabolic disorders (1 source)Overweight; Translations: [Overweight]Onset: 01-67-0533KwlgtjpnVwdqc nutritional; endocrine; and metabolic disorders (2 sources)Body mass index (BMI) 29.0-29.9, adult; Translations: [Body mass index (BMI) 29.0-29.9, adult]Onset: 92-53-5416IsbgfhxtEysfi screening for suspected conditions (not mental disorders or infectious disease) (3 sources)Mammography abnormal; Translations: [Other abnormal and inconclusive findings on diagnostic imagingof breast]Onset: 273359-92-1559IgiykhunZzqxv upper respiratory infections (20 sources)Acute upper respiratory infection, unspecified; Translations: [Acute pharyngitis, unspecified]Onset: 81-46-4393TukhzumrQpohee media and related conditions (13 sources)Acute suppurative otitis media without spontaneous rupture of ear drum; Translations: [Acute suppurative otitis media without spontaneous rupture of ear drum, unspecified ear]Onset: 576353-92-4106DfpidfqhQdfiaotjqh disorders (not diabetes) (20 sources)Cyst of pancreas; Translations: [Cyst of pancreas]Onset: 08-13-2023 EpisodicPeripheral and visceral atherosclerosis (16 sources)Omental infarction; Translations: [Acute infarction of intestine, part and extent unspecified]Onset: 01-31-2021 Resolved: 57-89-0748EfalxsaoYnlapehuqbk and intestinal abscess (4 sources)Abdominal abscess; Translations: [Peritoneal abscess]Onset: 01-30-2021 Resolved: 11-94-6346KjbgesbaWrqmfwcr codes; unclassified (20 sources)History of operative procedure on foot; Translations: [Other specified postprocedural states]Onset: 69-71-6392ZruhgphsEehtbutd codes; unclassified (20 sources)Family history of malignant neoplasm of pancreas; Translations: [Family history of malignant neoplasm of digestive organs]Onset: 03-08-2024 75-51-0724ZqdmpuzkTnunwamf codes; unclassified (20 sources)Family history of cancer; Translations: [Family history of malignant neoplasm, unspecified]Onset: 394043-81-2946GgmkdsklXkwgpihq codes; unclassified (18 sources)Family history of ischemic heart disease; Translations: [Family history of ischemic heart disease and other diseases of the circulatory system] Onset: 261693-29-3657NrovfoioZdvbezua codes; unclassified (4 sources)Family history of ischemic heart disease and other diseases of the circulatory system; Translations: [Family history of ischemic heart disease and other diseases of the circulatory system]Onset: 35-19-3063DcdoljvbVljoaumkc and history of mental health and substance abuse codes (20 sources)History of clinical finding in subject; Translations: [Personal history of nicotine dependence]Onset: 434864-38-0968WonhwvasXuubficzoiv; intervertebral disc disorders; other back problems (15 sources)Backache; Translations: [Dorsalgia, unspecified]Onset: 06-13-2002 EpisodicSprains and strains (17 sources)Injury of muscle and tendon at ankle and foot level; Translations: [Strain of unspecified muscle and tendon at ankle and foot level, left foot, initial encounter]Onset: 44-44-0289NargppojGzelnkn and intentional self- inflicted injury (4 sources)Suicidal ideations; Translations: [SUICIDAL IDEATIONS]Onset: 97-13-0532YtyobrexWvavvrzurjyo (20 sources)PregnancyOnset: 12-22-2006 Resolved: 923430-52-3712Orowntjegiml (1 source)Contact with and (suspected) exposure to covid-19 Z20.822Unclassified (4 sources)Cyst of abdomen; Translations: [Cyst of abdomen]83-41-5305Vuzly infection (1 source)Viral infection, unspecified; Translations: [VIRAL INFECTION UNSPECIFIED]Onset: 82-30-4821Xqncexpq Results Test NameValueInterpretationReference RangeFacilityHeart and Vascular Office/Clinic Noteon 00-23-3788Rxjwa and Vascular Office/Clinic NoteHeart and Vascular Office/Clinic Note Chief Complaint ER follow up History of Present Illness Patient is a 34 year old female here to follow up. Patient states she restarted Diamox which has been helping her symptoms of lightheaded/feeling like she is going to pass out, and has helped decrease her blood pressure. She appears to have have symptoms of sleep apnea such as fatigue all of the time and falling asleep at inappropriate times but her insurance denied an in office sleep study, theyapproved an at home study however [facility] [place] not currently have at home sleep study equipment. She states that [facility] [place] suppose to refer her to [facility] and her PCP was also suppose to send a referral to [facility] but they have not received anything. Review of Systems ROS - Provider Constitutional: no fever, no chills, no sweats, no weakness Respiratory: no shortness of breath, no cough Cardiovascular: no chest pain Neuro: no dizziness. no loss of consciousness Physical Exam Vitals & Measurements HR: 72(Peripheral) RR: 18 BP: 130/85 SpO2: 98% HT: 170 cm HT: 67 in WT: 201.061 lb WT: 91.2 kg BMI: 31.56 General: alert, no acute distress Neck: Supple, [...] her symptoms with abnormal cardiac rhythm. [2] [1] Assessment/Plan 1. Palpitations (R00.2: Palpitations) Patient's blood pressure and heart rate have been better controlled. She will continue to take Bystolic 5mg QD. She has not had any chest pain related to heart rate. Sleep apnea-like behavior (G47.39: Other sleep apnea) We have been trying to establish a diagnosis of sleep apnea which has not yet been done. She appears to have have symptoms of sleep apnea such as fatigue all of the time and falling asleep at inappropriate times but her insurance denied an in office sleep study, they approved an at home study however [facility] does not currently have at home sleep study equipment. Will send referral to [facility]. Patient will follow up in 6 months or sooner if needed. Arielle Ware personally transcribed this note for on 07/21/25 at 1039. Follow-up With When Contact Information Nata BHAKTA, Jak W, CAR Within 6 months [address] [place] [address]- Additional Instructions: Problem List/Past Medical History Ongoing Alcohol abuse, uncomplicated Bipolar disorder BMI 31.0-31.9,adult Borderline personality disorder Chronic pain syndrome History of bypass of stomach Hypertension Iron deficiency anemia Left breast mass Muscle weakness-general Obesity (BMI 30-39.9) AIDEN (obstructive sleep apnea) Overweight (BMI 25.0-29.9) Palpitations Pancreatic mass Smoker Vitamin D deficiency Historical Alcohol abuse Procedure/Surgical History Lumpectomy of left breast (05/30/2025), Injection of facet joint using fluoroscopic guidance (03/03/2025), Injection of facet joint using fluoroscopic guidance (01/24/2025), Injection of nerve root of lumbar spine using fluoroscopic guidance (11/28/2024), Biopsy, breast, with placement of breast loc alization device(s) (eg, clip, metallic pellet), when performed, and imaging of the biopsy specimen, when performed, percutaneous; first lesion, including ultrasound guidance (07/11/2024), Hysterectomy (12/05/2022), Endoscopic plantar fasciotomy (02/16/2020), Endoscopic plantar fasciotomy (06/02/2019), LEFT ELBOW ULNAR NERVE DECOMPRESSION (02/11/2019), x3, Foot, Foot, Gastric bypass operation, History of tubal l (more content not included)...[facility]orial Health SystemComment on above:Result Comment: Electronically Signed By: Jak Peace MD W\.br\Date and Time Signed: 07/21/25 11:45EST\.br\Electronically Co- Signed By: Roxana Shipman\.br\Date and Time Co-Signed: 07/21/25 10:40 ESTOphthalmic OCT panelon 49-05-5548Ebxzi Eye To assess optic nerve function and for use in future follow-up. Reliability: good and adequate. Left Eye To assess optic nerve function and for use in future follow-up. Reliability: good and adequate.[facility] HealthcareS[facility] HealthcareRadiology Study observation (narrative)[facility] HealthcarePerimetry studyon 70-81-6061[facility] HealthcareRadiology Study observation (narrative)[facility] HealthcareAlanine aminotransferase [Enzymatic activity/volume] in Serum or PlasmaOrdered By: Alexis Helm on 78-02-2424FGQ [Catalytic activity/Vol]13 U/L7-52Mer[facility] Memorial HospitalComment on above:Performed By: #### CMP, CK, HS TROP, CBC #### [facility] [address] [place] [id number] USAAlbumin [Mass/volume] in Serum or Plasma by Bromocresol green (BCG) dye binding methoOrdered By: Alexis Helm on 32-76-3942Zpyzqqv BCG dye [Mass/Vol]4.1 g/dL3.5-5.7FCleveland ClinicAlkaline phosphatase [Enzymatic activity/volume] in Serum or PlasmaOrdered By: Alexis Helm on 31-89-7847RBB [Catalytic activity/Vol]59 U/X25-636BnywbpanoMercy Memorial HospitalComment on above:Performed By: #### CMP, CK, HS TROP, CBC #### [facility] [address] [place] [address] USAAppearance of UrineOrdered By: Alexis Helm on 06-29-2025 Appearance (U)ClearCleMercer County Community HospitalComment on above:Order Comment: Name Collection Type:: Clean-Voided MidstreamPerformed By: #### CMP, CK, HS TROP, CBC #### [place] [address] USAAspartate aminotransferase [Enzymatic activity/volume] in Serum or PlasmaOrdered By: Alexis Helm on 67-16-7136HEW [Catalytic activity/Vol] 18 U/R04-87HqeipcguaMercy Memorial HospitalComment on above:Performed By: #### CMP, CK, HS TROP, CBC #### [facility] [address] [place] [address] USABasophils [#/volume] in Blood by Automated countOrdered By: Alexis Helm on 42-11-7599Qzirxelud (Bld) [#/Vol]0.1 10*3/uL0.0-0.2FCleveland ClinicComment on above:Result Comment: PERFORMED BY: [place] [address] PATHOLOGIST COMPLAINT EVALUATION SUPERVISOR BRENTON GOLD M.D.Performed By: #### CMP, CK, HS TROP, CBC #### [place] [address] USABasophils/100 leukocytes in Blood by Automated count Ordered By: Alexis Helm on 23-34-2727Uvpnnxwsx/100 WBC (Bld)1.0 %.Mercy Memorial HospitalComment on above:Performed By: #### CMP, CK, HS TROP, CBC #### [place] [address] USABilirubin Test strip Ql (U)Ordered By: Alexis Helm on 42-26-2546Xzvwzhphr Ql (U)NegativeNegativeMercy Memorial Hospital Bilirubin.total [Mass/volume] in Serum or PlasmaOrdered By: Alexis Helm on 45-49-8966Tdklobmnp [Mass/Vol]0.4 mg/dL0.3-1.0[facility] Comment on above:Performed By: #### CMP, CK, HS TROP, CBC #### [place] [address] USACT head/brain wo conon 94-55-6623GI head/brain wo con [facility] [address] [place] [address] [place] [address] CT Scan Report Signed Patient: Shazia Chuo MR#: [id number] : 1990 Acct:[id number] Age/Sex: 34 / F ADM Date: 06/29/25 Loc: ER Room: Type: PRE ER Attending Dr: Copies to: Alexis Helm MD Ordering Provider: Alexis Helm MD Date of Service: 06/29/25 CT/CT head/brain [...] ABNORMALITY. Impression dictated by: Raoul Newton Jr., D.O. 06/29/2025 1:29 PM Dictation Location: [place] [address] Transcribed By: [facility] 06/29/25 1329 Dictated By: Raoul Newton Jr, DO 06/29/25 1327 Signed By: 06/29/25 1329NoUNC Health Johnston Clayton Physician GroupCalcium [Mass/volume] in Serum or PlasmaOrdered By: Alexis Helm on 26-14-3250Slrruyk [Mass/Vol]9.0 mg/dL8.6-10.3 [facility] Memorial HospitalComment on above:Performed By: #### CMP, CK, HS TROP, CBC #### [facility] [address] [place], [place] [address] USACarbon dioxide, total [Moles/volume] in Serum or Plasma Ordered By: Alexis Helm on 48-99-1535WF8 [Moles/Vol]24.8 mmol/L21.0-31.0Mer[facility] Memorial HospitalComment on above:Performed By: #### CMP, CK, HS TROP, CBC #### [place] [address] USAChloride [Moles/volume] in Serum or PlasmaOrdered By: Alexis Helm on 53-88-1712Ecwujosy [Moles/Vol]108 mmol/MYwrk30-119OvcixfcvbMercy Memorial HospitalComment on above:Performed By: #### CMP, CK, HS TROP, CBC #### [place] [address] USAColor of Urine by AutoOrdered By: Alexis Helm on 06-29-2025 Color (U)Light-yellowYellowMercy Memorial HospitalComment on above: Order Comment: Name Collection Type:: Clean-Voided MidstreamPerformed By: #### CMP, CK, HS TROP, CBC #### [place] [address] USAComplete Blood Count Auto Diffon 80-57-6153Gnkq Corpuscular HGB Conc34.2 g/eQInchgj38.0-35.0[facility] Physician GroupComment on above:Performed By: #### CMP, CK, HS TROP, CBC #### [place] [address] USAMonocytes/100 WBC (Bld)17.75 %Normal0.00-20.00[facility] Physician GroupComment on above:Performed By: #### CMP, CK, HS TROP, CBC #### [place] [address] USANRBC%0.2 /100{WBC}Normal0-0.5[facility]ician [facility] Comment on above:Performed By: #### CMP, CK, HS TROP, CBC #### [place] [address] USAWhite Blood Count7.0 [CFU]/mLNormal3.8-11.6[facility] Physician GroupComment on above:Performed By: #### CMP, CK, HS TROP, CBC #### [place] [address] USAComprehensive Metabolic Panelon 67-23-4983Pktfyyg [Mass/Vol]4.1 g/dLNormal3.5-5.7The [facility] Physician GroupComment on above: Performed By: #### CMP, CK, HS TROP, CBC #### [place] [address] USACreatinine Clr Calc Llsojpsp967.30NormalThSt. Luke's Nampa [facility] Physician Laird HospitalComment on above:Result Comment: PERFORMED BY: [place] [address] PATHOLOGIST COMPLAINT EVALUATION SUPERVISOR BRENTON GOLD M.D.Performed By: #### CMP, CK, HS TROP, CBC #### [place] [address] USAGFR/1.73 sq M.predicted MDRD (S/P/Bld) [Vol rate/Area] mL/min/{1.73_m2}NormalThe [facility] Physician Laird HospitalComment on above:Performed By: #### CMP, CK, HS TROP, CBC #### [place] [address] USACreatine kinase [Enzymatic activity/volume] in Serum or PlasmaOrdered By: Alexis Helm on 41-23-5396FU [Catalytic activity/Vol]79 U/L [facility] HospitalComment on above:Performed By: #### CMP, CK, HS TROP, CBC #### [place] [address] USACreatinine [Mass/volume] in Serum or PlasmaOrdered By: Alexis Helm on 34-63-4159Pcpcznlnid [Mass/Vol]0.60 mg/dL0.60-1.20Mer[facility] Memorial HospitalComment on above:Performed By: #### CMP, CK, HS TROP, CBC #### [place] [address] USAECG 12 lead ECGon 83-21-6921ZJU 12 lead [facility] [address] [place] [id number] Electrocardiograph Report Signed Patient: Shazia Chou MR#: [id number] : 1990 Acct:[id number] Age/Sex: 34 / F ADM Date: 06/29/25 Loc: ER Room: Type: [facility] ER Attending Dr: Ordering Provider: Alexis Helm MD Date of Service: 06/29/25 ECG/ECG 12 lead ECG: Dizziness Copies to: Test Reason : Blood Pressure : 143/88 mmHG Vent. Rate : 56 BPM Atrial Rate : 56 BPM P-R Int : 156 ms QRS Dur : 80 ms QT Int : 428 ms P-R-T Axes : 32 58 38 degrees QTcB Int : 413 ms Sinus bradycardia Otherwise normal ECG When compared with ECG of 29-Jun-2025 11:42, (Unconfirmed) No significant change was found Confirmed by ALEXIS HELM MD ([id number]) on 06/30/2025 11:04:32 AM Referred By: Electronically Signed By: ALEXIS HELM MD Transcribed By: MUS Signed By Alexis Helm MD 06/30/[address] [place] [address] Physician GroupECG 12 lead [facility] [address] [place] [id number] Electrocardiograph Report Signed Patient: Shazia Chou MR#: [id number] : 1990 Acct:[id number] Age/Sex: 34 / F ADM Date: 06/29/25 Loc: ER Room: Type: [facility] ER Attending Dr: Ordering Provider: Alexis Helm MD Date of Service: 06/29/25 ECG/ECG 12 lead ECG: Dizziness Copies to: Test Reason : Blood Pressure : */* mmHG Vent. Rate : 70 BPM Atrial Rate : 70 BPM P-R Int : 142 ms QRS Dur : 76 ms QT Int : 386 ms P-R-T Axes : 27 57 30 degrees QTcB Int : 416 ms Normal sinus rhythm Septal infarct , age undetermined Abnormal ECG When compared with ECG of 15-Sep-2024 13:31, No significant change was found Confirmed by ALEXIS HELM MD ([id number]) on 06/29/2025 3:14:46 PM Referred By: Electronically Signed By: ALEXIS HELM MD Transcribed By: MUS Signed By Alexis Helm MD 06/29/[address] [place] [address] Physician GroupEosinophils [#/volume] in Blood by Automated countOrdered By: Alexis Helm on 89-90-8163Cczlhionnha (Bld) [#/Vol]0.2 10*3/uL0.0-0.45Mer[facility] Memorial HospitalComment on above:Performed By: #### CMP, CK, HS TROP, CBC #### [facility] [address] [place] [address] USAEosinophils/100 leukocytes in Blood by Automated count Ordered By: Alexis Helm on 75-08-3464Ovtjklqsnqs/100 WBC (Bld)2.2 %.[facility] Memorial HospitalComment on above:Performed By: #### CMP, CK, HS TROP, CBC #### [facility] [address] [place] [address] USAErythrocyte distribution width [Ratio] by Automated count Ordered By: Alexis Helm on 20-39-2480Rptnmbzevra distribution width (RBC) [Ratio] 15.7 %High11.9-15.3FCleveland ClinicComment on above:Performed By: #### CMP, CK, HS TROP, CBC #### [facility] [address] [place] [id number] USAErythrocytes [#/volume] in Blood by Automated countOrdered By: Alexis Helm on 84-66-9583WHO (Bld) [#/Vol]3.75 10*6/uL3.60-5.00Mer[facility] Memorial HospitalComment on above:Performed By: #### CMP, CK, HS TROP, CBC #### [facility] [address] [place] [address] USAGlomerular filtration rate [Volume Rate/Area] in Serum, Plasma or Blood by CreatinineOrdered By: Alexis Helm on 49-31-9919Nmlnqrebtl filtration rate [Volume Rate/Area] in Serum, Plasma or Blood by Creatinine> 60.0 mL/MinMercy Memorial HospitalGlucose [Mass/volume] in Serum or Plasma Ordered By: Alexis Helm on 79-57-1512Dzekafv [Mass/Vol]85 mg/aV26-087FpsdqonetMercy Memorial HospitalComment on above:ADA recommended reference rangeRandom Glucose Reference Range is dependent on time and content of last meal. Glucose of more than 200 mg/dL in a nonstressed, ambulatory subject supports the diagnosisof Diabetes Mellitus.Result Comment: Random Glucose Reference Range is dependent on time and content of last meal. Glucose of more than 200 mg/dL in a nonstressed, ambulatory subject supports the diagnosis of Diabetes Mellitus. ADA recommended reference rangePerformed By: #### CMP, CK, HS TROP, CBC #### [facility] [address] [place] [address] USAGlucose [Mass/volume] in Urine by Test stripOrdered By: Alexis Helm on 25-98-7290Xrwxzmk Test strip (U) [Mass/Vol]Normal mg/dLNormal [facility] Memorial HospitalHematocrit [Volume Fraction] of Blood by Automated countOrdered By: Alexis Helm on 09-72-8579Uwoapwstte (Bld) [Volume fraction]35.6 %34.0-46.4FCleveland ClinicComment on above: Performed By: #### CMP, CK, HS TROP, CBC #### [facility] [address] [place] [address] USAHemoglobin Test strip Ql (U)Ordered By: Alexis Helm on 25-01-1851Dyamqkuret Ql (U)NegativeNegSelect Medical [facility] Hemoglobin [Mass/volume] in BloodOrdered By: Alexis Helm on 27-16-9445Dqomlycgce (Bld) [Mass/Vol]12.2 g/dL11.8-15.4FCleveland ClinicComment on above:Performed By: #### CMP, CK, HS TROP, CBC #### [facility] [address] [place] [address] USAKetones [Presence] in Urine by Test stripOrdered By: Alexis Helm on 10-57-3120Ftpyvae Ql (U)NegativeNegSelect Medical Cleveland Clinic Rehabilitation Hospital, AvonComment on above:Order Comment: Name Collection Type:: Clean-Voided MidstreamPerformed By: #### CMP, CK, HS TROP, CBC #### [facility] [address] [place] [address] USALeukocyte esterase [Presence] in Urine by Test strip Ordered By: Alexis Helm on 50-16-8273Dzltftbhm esterase Test strip Ql (U)Negative NegativeMercy Memorial HospitalComment on above:Order Comment: Name Collection Type:: Clean-Voided MidstreamPerformed By: #### CMP, CK, HS TROP, CBC #### [facility] [address] [place] [address] USALeukocytes [#/volume] corrected for nucleated erythrocytes in Blood by Automated counOrdered By: Alexis Helm on 88-23-1490VHX corrected for nucl RBC Auto (Bld) [#/Vol]7.0 10*3/uL3.8-11.6FCleveland Clinic Leukocytes [#/volume] in Blood by Automated countOrdered By: Alexis Helm on 26-03-8252CXI (Bld) [#/Vol]7.0 10*3/uL3.8-11.6FCleveland Clinic Comment on above:Performed By: #### CMP, CK, HS TROP, CBC #### [facility] [address] [place] [address] USALymphocytes [#/volume] in Blood by Automated countOrdered By: Alexis Helm on 25-91-3929Mxpagqmsned (Bld) [#/Vol]1.9 10*3/uL1.00-4.8 Mer[facility] Memorial HospitalComment on above:Performed By: #### CMP, CK, HS TROP, CBC #### [facility] [address] [place] [address] USALymphocytes/100 leukocytes in Blood by Automated count Ordered By: Alexis Helm on 15-52-6242Yrjbgnwbegq/100 WBC (Bld)27.8 %.Mer[facility] Memorial HospitalComment on above:Performed By: #### CMP, CK, HS TROP, CBC #### [facility] [address] [place] [address] USAMCH [Entitic mass] by Automated countOrdered By: Alexis Helm on 83-70-8147AWW (RBC) [Entitic mass]32.4 pg24.7-34.3FCleveland ClinicComment on above:Performed By: #### CMP, CK, HS TROP, CBC #### [facility] [address] [place] [address] USAHC Auto (RBC) [Mass/Vol]Ordered By: Alexis Helm on 25-29-6456ZVNA (RBC) [Mass/Vol]34.2 g/dL32.0-35.0Mercy Memorial HospitalMCV [Entitic volume] by Automated countOrdered By: Alexis Helm on 82-33-6418ILX (RBC) [Entitic vol]94.9 qR58-255FhzlyaizvMercy Memorial Hospital Comment on above:Performed By: #### CMP, CK, HS TROP, CBC #### [place] [address] USAMonocyte distribution width [Entitic volume] in Blood by AutomatedOrdered By: Alexis Helm on 01-93-4876Fxbafjmj distribution width Auto (Bld) [Entitic vol]17.75 %0.00-20.00Mercy Memorial HospitalMonocytes [#/volume] in Blood by Automated countOrdered By: Alexis Helm on 06-29-2025 Monocytes (Bld) [#/Vol]0.6 10*3/uL0.0-0.8[facility] Comment on above:Performed By: #### CMP, CK, HS TROP, CBC #### [facility] [address] [place] [address] USAMonocytes/100 leukocytes in Blood by Automated count Ordered By: Alexis Helm on 68-28-5933Lzpbcvxru/100 WBC (Bld)8.4 %.Mer[facility] Memorial HospitalComment on above:Performed By: #### CMP, CK, HS TROP, CBC #### [place] [address] USANeutrophils [#/volume] in Blood by Automated countOrdered By: Alexis Helm on 21-66-8470Ffulvbjtxio (Bld) [#/Vol]4.2 10*3/uL1.8-7.7FCleveland ClinicComment on above:Performed By: #### CMP, CK, HS TROP, CBC #### [facility] [address] [place] [address] USANeutrophils/100 leukocytes in Blood by Automated count Ordered By: Alexis Helm on 22-43-5420Nyzghizlggx/100 WBC (Bld)60.6 %.[facility] Memorial HospitalComment on above:Performed By: #### CMP, CK, HS TROP, CBC #### [facility] [address] [place] [address] USANitrite Test strip Ql (U)Ordered By: Alexis Helm on 21-65-5467Obfxrhj Ql (U)NegativeNegativeMercy Memorial HospitalNo Panel InformationOrdered By: Alexis Helm on 72-36-9428Ikhwujei Creatinine Clearance (Pxbn607.30Mer[facility] Memorial HospitalNucleated erythrocytes [Presence] in Blood by Automated countOrdered By: Alexis Helm on 06-29-2025 Nucleated RBC Auto Ql (Bld)0.2 /100{WBC}0-0.5FCleveland Clinic Platelet mean volume [Entitic volume] in Blood by Automated countOrdered By: Alexis Helm on 21-28-0886Phdkiruj mean volume (Bld) [Entitic vol]8.8 fL6.3-10.7 [facility] HospitalComment on above:Performed By: #### CMP, CK, HS TROP, CBC #### [facility] [address] [place] [address] USAPlatelets [#/volume] in Blood by Automated countOrdered By: Alexis Helm on 37-95-4624Epegtggut (Bld) [#/Vol]287 10*3/iO700-527ZyziosnzcMercy Memorial HospitalComment on above:Performed By: #### CMP, CK, HS TROP, CBC #### [facility] [address] [place] [id number] USAPotassium [Moles/volume] in Serum or PlasmaOrdered By: Alexis Helm on 57-79-6968Qnpydusbf [Moles/Vol]3.5 mmol/L3.5-5.1FCleveland ClinicComment on above:Performed By: #### CMP, CK, HS TROP, CBC #### [facility] [address] [place] [address] USAProtein Test strip (U) [Mass/Vol]Ordered By: Alexis Helm on 59-21-6399Arcrcrt (U) [Mass/Vol]NegativeNegativeMercy Memorial HospitalProtein [Mass/volume] in Serum or PlasmaOrdered By: Alexis Helm on 11-09-5729Osahrhn [Mass/Vol]6.6 g/dL6.4-8.9[facility] Comment on above:Performed By: #### CMP, CK, HS TROP, CBC #### [facility] [address] [place] [address] USASerum globulin measurement by calculation (mass/volume) Ordered By: Alexis Helm on 46-31-5120Hkbuxjgq (S) [Mass/Vol]2.5 g/dLMercy Memorial HospitalComment on above:Performed By: #### CMP, CK, HS TROP, CBC #### [facility] [address] [place] [address] USASerum or plasma albumin/globulin mass ratioOrdered By: Alexis Helm on 10-05-9444Jfrlzwj/Globulin [Mass ratio]1.6 {ratio}[facility] Memorial HospitalComment on above:Performed By: #### CMP, CK, HS TROP, CBC #### [facility] [address] [place] [address] USASerum or plasma anion gap determinationOrdered By: Alexis Helm on 58-17-2874Fyadd gap [Moles/Vol]9.7 mmol/L6.0-15.0Mercy Memorial HospitalComment on above:Performed By: #### CMP, CK, HS TROP, CBC #### [facility] [address] [place] [address] USASodium [Moles/volume] in Serum or PlasmaOrdered By: Alexis Helm on 70-73-7115Tsvxza [Moles/Vol]139 mmol/Z639-972CvurnesntMercy Memorial HospitalComment on above:Performed By: #### CMP, CK, HS TROP, CBC #### [facility] [address] [place] [address] USASpecific gravity Test strip (U) [Rel density]Ordered By: Alexis Helm on 92-12-9172Zdhgyika gravity (U) [Rel density]1.0071.001-1.030 [facility] Memorial HospitalTroponin I High Sensitivityon 06-29-2025 Troponin I High Sensitivity<2Wcqoyh3-17Yco [facility] Physician GroupComment on above:Result Comment: The Troponin units of report have been changed to meet the Chest Pain Accreditation requirement, element EC5.M1l2. Troponin units are changed from pg/ml to ng/L. Also, the decimal is removed and results are in whole numbers. PERFORMED BY: [place] [address] PATHOLOGIST COMPLAINT EVALUATION SUPERVISOR BRENTON GOLD M.D.Performed By: #### CMP, CK, HS TROP, CBC #### [place] [address] USATroponin I.cardiac [Mass/volume] in Serum or Plasma by Detection limit <= 0.01 ng/mLOrdered By: Alexis Helm on 73-00-4461Pmzaxtbd I.cardiac DL <= 0.01 ng/mL [Mass/Vol]< 3 ng/L0Mercy Memorial HospitalComment on above:The Troponin units of report have been changed to meet the Chest Pain Accreditation requirement, element EC5.M1l2. Troponin units are changed from pg/ml to ng/L. Also, the decimal is removed and results are in whole numbers.Urea nitrogen [Mass/volume] in Serum or PlasmaOrdered By: Alexis Helm on 01-07-7495Xygw nitrogen [Mass/Vol]8 mg/dL04-07Mercy Memorial HospitalComment on above:Performed By: #### CMP, CK, HS TROP, CBC #### [place] [id number] USAUrinalysison 11-81-1294Kgsqlhzpv,UrineNegativeNormal NegativeThe [facility]son Physician GroupComment on above:Order Comment: Name Collection Type:: Clean-Voided MidstreamPerformed By: #### CMP, CK, HS TROP, CBC #### [address] [address] USAGlucose Ql (U)NormalNormalNormHCA Florida Woodmont Hospital Physician GroupComment on above:Order Comment: Name Collection Type:: Clean-Voided MidstreamPerformed By: #### CMP, CK, HS TROP, CBC #### [place] [address] USANitrite,UrineNegativeNormalNegativeThe [facility] Physician GroupComment on above:Order Comment: Name Collection Type:: Clean-Voided MidstreamPerformed By: #### CMP, CK, HS TROP, CBC #### [place] [address] USAOccult Blood,UrineNegativeNormalNegativeThe [facility]son Physician GroupComment on above:Order Comment: Name Collection Type:: Clean- Voided MidstreamResult Comment: PERFORMED BY: [place] [address] PATHOLOGIST COMPLAINT EVALUATION SUPERVISOR BRENTON GOLD M.D.Performed By: #### CMP, CK, HS TROP, CBC #### [place] [address] USAProtein,UrineNegativeNormalNegativeMease Countryside Hospital Physician GroupComment on above:Order Comment: Name Collection Type:: Clean-Voided MidstreamPerformed By: #### CMP, CK, HS TROP, CBC #### [place] [address] USASpecificy [place],Urine1.678Qialjg2.001-1.030The [facility] Physician GroupComment on above:Order Comment: Name Collection Type:: Clean- Voided MidstreamPerformed By: #### CMP, CK, HS TROP, CBC #### [place] [address] USAUrobilinogen,UrineNormalNormalNormHCA Florida Woodmont Hospital Physician GroupComment on above:Order Comment: Name Collection Type:: Clean- Voided MidstreamPerformed By: #### CMP, CK, HS TROP, CBC #### [place] [address] USAUrobilinogen Test strip (U) [Mass/Vol]Ordered By: Alexis Helm on 83-83-7130Rnynjgmydiph (U) [Mass/Vol]Normal mg/dLNormalMercy Memorial HospitalX-ray reportOrdered By: Raoul Newton on 06-29-2025 [facility] [place] [id number] XRay Report Signed Patient: Shazia Chou MR#: [id number] : 1990 Acct:[id number] Age/Sex: 34 / F ADM Date: Loc: ER Room: Type: PRE ER Attending Dr: Copies to: Alexis Helm MD~ Ordering Provider: Alexis Helm MD Date of Service: 06/29/25 XR/XR chest 1V portable: Dizziness SINGLE VIEW CHEST CLINICAL HISTORY: Dizziness weakness confusion head pressure COMPARISON: Chest 09/15/2024 FINDINGS: Heart normal in size. Lungs are clear. No free air. XR/XR chest 1V portable IMPRESSION: NO ACUTE FINDINGS Impression dictated by: Raoul Newton Jr., D.O. 06/29/2025 1:26 PM Dictation Location: [place] [address] Transcribed By: [facility] 06/29/25 1326 Dictated By: Raoul Newton Jr, DO 06/29/25 1326 Signed By: 06/29/25 1326 Mer[facility] Memorial HospitalXR chest 1V portableon 54-13-7778SZ chest 1V portablePARKWOOD [facility]OS[facility]ITAL Main [place] [id number] XRay Report Signed Patient: Shazia Chou MR#: [id number] : 1990 Acct:[id number] Age/Sex: 34 / F ADM Date: 06/29/25 Loc: ER Room: Type: PRE ER Attending Dr: Copies to: Alexis Helm MD Ordering Provider: Alexis Helm MD Date of Service: 06/29/25 XR/XR chest 1V portable: Dizziness SINGLE VIEW CHEST CLINICAL HISTORY: Dizziness weakness confusion head pressure COMPARISON: Chest 09/15/2024 FINDINGS: Heart normal in size. Lungs are clear. No free air. XR/XR chest 1V portable IMPRESSION: NO ACUTE FINDINGS Impression dictated by: Raoul Newton Jr., Emilee 06/29/2025 1:26 PM Dictation Location: RADIO-PC-22 Transcribed By: PWS 06/29/251325 Dictated By: Raoul Newton Jr, DO 06/29/251325 Signed By: 06/29/[address] [place] [address] Physician GrouppH of Urine by Test stripOrdered By: Alexis Helm on 03-98-7741lW (U)7.0 [pH]5.0-9.0Mercy Memorial HospitalComment on above:Order Comment: Name Collection Type:: Clean-Voided MidstreamPerformed By: #### CMP, CK, HS TROP, CBC #### [facility] [address] [place] [address] [facility] 05-30-2025L Specimen: [id number] Received: 05/30/25 Status: FABBY Zaldivarsteven Num: [id number] Spec Type: Surgical Subm Dr: Aaliyah Francis DO Tissues: A Breast Lumpectmy/Mass - Requiring Micros Eval of Margins (L BREAST TISSUE AN Procedures: HE/18, Gross/Micro L5 Age/ Patient Sex Location Account Attending Physician Shazia Chou 34/F [place] [id number] Aaliyah Francis, DO SPEC NUM: [id number] RECD: 05/30/25 STATUS: FABBY HOLT NUM: [id number] JUAN: 05/30/25 [facility] DR: Aaliyah Francis DO ENTERED: 05/30/[address] [facility] [address]: LENCHO TYPE: Surgical DEPT: S ENTERED BY: [id number] RECV BY: [id number] ORDERED: HE/18, Gross/Micro L5 ORDERED: HE/18, Gross/Micro [...] with ink as follows: Superior-Red Inferior-Blue Medial-Yellow Lateral-[place] Anterior-Green Posterior-Black The lumpectomy is 4 cm [...] that is transferred to nuclear medicine. Specimen: [id number] Received: 05/30/25 Status: FABBY Holt Num: [id number] Spec Type: Surgical Subm Dr: Aaliyah Francis DO Tissues: A Breast Lumpectmy/Mass - Requiring Micros Eval of Margins (L BREAST TISSUE AN Procedures: , Gross/Micro L5 Patient: Shazia Chou [id number] (Continued) Specimen: [id number] Received: 05/30/25 (Continued) Gross Description (Continued) Signed (signature on file) Terry Quintanilla MD 05/31/25 1332 Specimen: [id number] Received: 05/30/25 Status: FABBY Holt Num: [id number] Spec Type: Surgical Subm Dr: Aaliyah Francis DO Tissues: A Breast Lumpectmy/Mass - Requiring Micros Eval of Margins (L BREAST TISSUE AN Procedures: , Gross/Micro L5 Patient: Linda Choudion Bach [id number] (Continued) Specimen: [id number] Received: 05/30/25 (Continued) Gross Description (Continued) The [...] densely fibrous area A (more content not included)...[facility] ClinicMM surgical specimen [facility] 07-46-4859FC surgical specimen [facility] [address] [place] [address] Mammography Report Signed Patient: Shazia Chou MR#: [id number] : 1990 Acct:[id number] Age/Sex: 34 / F Adm Date: 05/30/25 Loc: [place] Room: Type: [facility] Attending Dr: Aaliyah Francis DO Ordering Provider: Aaliyah Francis DO Date of Service: 05/30/25 Procedure(s): MM surgical specimen LT Accession Number(s): ([id number]) MM/MM surgical specimen LT: POST LUMPECTOMY Copies to: Jennie Landrum DO CLINICAL INFORMATION: [Left] breast lumpectomy. SPECIMEN RADIOGRAPH: A single radiograph of the [left] breast specimen showed a metallic marking clip and radioiodine seed within the specimen. The images were reviewed by the attending physician during the procedure. Impression dictated by: Denny Escalante M.D. 05/30/2025 2:10 PM Dictation Location: [place] [address] Dictated By: Denny Escalante MD 05/30/25 1408 Signed By: 05/30/25 1410[facility] Physician [facility] HospitalUS breast [facility] loc [facility] 16-80-5452UH breast needle loc [facility] Main [address] [address] Ultrasound Report Signed Patient: Shazia Chou MR#: [id number] : 1990 Acct:[id number] Age/Sex: 34 / F ADM Date: 05/30/25 Loc: [place] Room: Type: [facility] Attending Dr: Aaliyah Francis DO Ordering Provider: Aaliyah Francis DO Date of Service: 05/29/25 US/US breast needle loc LT: LEFT U/S GUIDED RADIOACTIVE SEED LOC ([id number]) MM/MM diagnostic mammo LT w/CAD: POST U/S RADIOACTIVE SEED LOC Copies to: Aaliyah Francis DO Ultrasound radioactive seed localization 7 [...] Hadley M.D. 05/29/2025 11:38 AM Dictation Location: [facility] Tech: Molly Price Transcribed By: [facility] 05/29/25 1138 Dictated By: Clinton Hadley DO 05/29/25 1131 Signed By: 05/29/25 1138[facility] Physician GroupUS breast needle loc [facility] Main [place] [address] [place] [id number] Ultrasound Report Signed Patient: Shazia Chou MR#: [id number] : 1990 Acct:[id number] Age/Sex: 34 / F ADM Date: 05/04/25 Loc: WIUL Room: Type: [facility] Attending Dr: Aaliyah Francis DO Ordering Provider: Aaliyah Francis DO Date of Service: 05/29/25 US/US breast needle loc LT: LEFT U/S GUIDED RADIOACTIVE SEED LOC ([id number]) MM/MM diagnostic mammo LT w/CAD: POST U/S RADIOACTIVE SEED LOC Copies to: Aaliyah Francis DO Ultrasound radioactive seed localization 7 [...] Hadley M.D. 05/29/2025 11:38 AM Dictation Location: [facility] Tech: Molly Price Transcribed By: MARKY 05/29/25 1138 Dictated By: Clinton Hadley DO 05/29/25 1131 Signed By: 05/29/25 1138[facility] Physician GroupHeart and Vascular Office/Clinic Noteon 64-86-3146Lqizy and Vascular Office/Clinic NoteHeart and Vascular Office/Clinic Note Chief Complaint f/u [...] With When Contact Information Nata BHAKTA, Jak Mesa, CAR Within 3 months [address] [place] [address]- Additional Instructions: Jak Peace MD, CAR Within 3 months [address] [place] [address]- Additional Instructions: Problem List/Past Medical [...] placement of breast localization device(s) (eg, clip, metallicpellet), when performed, and imaging of the biopsy specimen, when performed, percutaneous; first lesion, including ultrasound guidance (07/11/2024), Hysterectomy (12/05/2022), Endoscopic plantar fasciotomy (02/16/2020), Endoscopic plantar fasciotomy (06/02/2019), LEFT ELBOW ULNAR NERVE DECOMPRESSION (02/11/2019), c- section x3, Foot, Foot, Gastric bypass operation, History [...] work excuse, 0 Allergies (more content not included)...[facility]orial Health SystemComment on above: Result Comment: Electronically Signed By: Jak Peace MD\.br\Date and Time Signed: 04/27/25 15:42EDT\.br\Electronically Co-Signed By: Roxana Shipman\.br\Date and Time Co-Signed: 04/27/25 15:40 EDTMM diagnostic mammo LT w/CADon 84-71-6698BM diagnostic mammo LT w/[facility] Main [place] [address] [place] [address] Ultrasound Report Signed Patient: Shazia Chou MR#: [id number] : 1990 Acct:[id number] Age/Sex: 34 / F ADM Date: 04/26/25 Loc: [place] Room: Type: [facility] Attending Dr: Aaliyah Francis DO Ordering Provider: Aaliyah Francis DO Date of Service: 04/26/25 MM/MM diagnostic mammo LT w/CAD: follow up for Left breast Upper outer quadrant ([id number]) US/US breast LT limited: follow with mamm upper outer quadrant Copies to: Aaliyah Francis DO DIAGNOSTIC LEFT MAMMOGRAM - FULL [...] Escalante M.D. 04/26/2025 10:15 AM Dictation Location: [facility] Tech: Shazia Vaughn Transcribed By: MARKY 04/26/25 1015 Dictated By: Denny Escalante MD 04/26/25 1009 Signed By: 04/26/25 1015[facility] Myocardial Spect Rest/Stress 1 Dayon 99-65-4681RI Myocardial Spect Rest/Stress 1 DayExam Date/Time: 04/17/2025 11:57 EDT Reason for Exam: R00.2;[place] [address] Nuclear Stress Report Name: SHAZIA CHOU Study Date: 04/17/2025 08:00 AM Patient Location: [facility] : 1990 (M/d/yyyy) Gender: Female Age: 34 yrs Ethnicity: T Reason For Study: R00.2;Chest pain Ordering Physician: Jak Peace Referring Physician: Jak Peace Protocol 13296 Pharmacologic Lexiscan stress with Isotope. Study Protocol: [...] by: Catalino Vaca MD Transcribed by: [facility] Technologist: [facility]. pyogenes DNA JOSÉ MIGUEL+probe Nom (Unsp spec)on 40-66-4034Exoueshumzypeq and review of laboratory resultsNormalNOMS HealthcareRESULTNegativeNegativeNOMS HealthcareNOMS HealthcareEvent Monitoron 67-48-4917Xfqhj MonitorEvent Monitor TWO-WEEK EVENT MONITOR DATES OF STUDY: [...] rhythm. READ BY: terrell Arredondo Dictated: 03/10/2025 [id number] Transcribed: 03/14/2025 cc:*Jak Peace M.D.[facility]orial Health SystemComment on above:Result Comment: Electronically Signed By: Catalino Vaca MD\.br\Date and Time Signed: 03/15/25 07:49 EDTMain OR Intraoperative Recordon 71-78-1898Entm OR Intraoperative RecordMain OR Intraoperative Record IntraOp Document Type FTPM Summary Primary Physician: Babar Mayers DO Finalized Date/Time: 03/03/25 08:45:29 Pt. Name: SHAZIA CHOU Valentina/Sex: 1990 Female Med Rec #: [id number] Physician: Babar Mayers DO Financial #: [id number] Pt. Type: P Room/Bed: / Admit/Disch: 03/03/25 [...] Lulu Bellamy Role Performed Surgeon - Primary Band Aid Machine Operator - Primary Scrub - Primary Time In 03/03/25 08:33:00 03/03/25 08:33:00 03/03/25 08:33:00 Time Out 03/03/25 08:45:00 03/03/25 08:45:00 03/03/25 08:45:00 Procedure MEDIAL BRANCH MEDIAL BRANCH MEDIAL BRANCH BLOCK(Bilateral) BLOCK(Bilateral) BLOCK(Bilateral) Comments Last Modified By: Giorgi ROLLE, Corby Rand RN, Corby Bell RN 03/03/25 08:44:15 M 03/03/25 08:44:15 M 03/03/25 08:44:15 Entry 4 Case Attendee Amina Allen (R) Role Performed Contact Center Specialist Time In 03/03/25 08:33:00 Time Out 03/03/25 [...] No Time Out Corby Rand RN, Markos ROLLE, Talib Patino DO, Bradford A., Christman RT(R), [...] and tissue Entry 1 Skin Integrity Intact, [place], Warm, & Skin Abnormality No Dry Outcomes [...] Press Points Checked Ye (more content not included)...[facility] SystemMain OR Preoperative Recordon 15-56-8940Shvp OR Preoperative RecordMain OR Preoperative Record Holding Area Document Type FT Summary Primary Physician: Babar Mayers DO Finalized Date/Time: 03/03/25 07:33:54 Pt. Name: SONYA SHAZIADION [place]/Sex: 1990 Female Med Rec #: [id number] Physician: Babar Mayers DO Financial #: [id number] Pt. Type: P Room/Bed: / Admit/Disch: 03/03/25 07:21:36 - Institution: Case Times Holding FTPM Pre-Care Text: Verifies consent for planned procedure, identifies individual values and wishes concerning care, includes family members in perioperative teaching Secures patient's records' belongings, and valuables, maintains patient's dignity and privacy, and maintains patient confidentiality Entry 1 In Holding 03/03/25 07:28:00 Outcomes Met? Yes Last Modified By: Gabrielle Sulatna RN 03/03/25 07:28:18 Post-Care Text: The patient participates in decisions affecting his or her perioperative plan of care The patient'sright to privacy is maintained Surgery Checklist FTPM [...] Signatures Signed By: Gabrielle Sultana RN 03/03/25 07:33NormalUniversity Hospitals St. John Medical CenterCB w/Indiceson 63-35-1311Izaxnvrbizm distribution width (RBC) [Ratio]14.4 %High10.9-14.2FCorey HospitalComment on above:Performed By: #### [id number] #### [facility] [address] [place], [place] [address]Isdkkflqxb (Bld) [Volume fraction]39.0 %Hvzbsp22.0-46.0[facility]als St. John Medical CenterComment on above:Performed By: #### [id number] #### [facility] [address] [place], [place] [address]Sbgufybrvh (Bld) [Mass/Vol]13.2 g/nDSfptoq55.0-16.0[facility] John Medical CenterComment on above:Performed By: #### [id number] #### [facility] [address] [place], [place] [address]VSI (RBC) [Entitic mass]33.5 itHzthye28.0-34.0[facility]. John Medical CenterComment on above:Performed By: #### [id number] #### [facility] [address] [place], [place] [address]DQYQ (RBC) [Mass/Vol]33.8 g/fKMcptrx14.4-36.0[facility] John Medical CenterComment on above:Performed By: #### [id number] #### [facility] [address] [place] [address]NDU (RBC) [Entitic vol]99.1 sSCdatwb10.0-100.0[facility]. John Medical CenterComment on above:Performed By: #### [id number] #### [facility] [address] [place] [address]Qkyzsigm080.0 E9/RQimqnd676.0-500.0[facility] Comment on above:Performed By: #### [id number] #### [facility] [address] [place] [address]Wtabyyqv mean volume (Bld) [Entitic vol]9.5 fLNormal6.4-10.[address] John Medical CenterComment on above:Performed By: #### [id number] #### [facility] [address] [place] [address]LSN6.9 E12/LLow4.3-5.9[facility] John Medical CenterComment on above:Performed By: #### [id number] #### [facility] [address] [place] [address]YOG morphology finding Nom (Bld)NORMALInvalid Interpretation CodeUniversity Hospitals St. John Medical CenterComment on above:Performed By: #### [id number] #### [facility] [address] [place] [address]POV16.1 E9/LHigh4.0-11.0[facility] John Medical CenterComment on above:Performed By: #### [id number] #### [facility] [address] [place] [address]MEYIBELPOZmxtkzk By: SYSTEM SYSTEM on 06-22-8215Cdooynfr [Mass/Vol]11 ng/nDRoxhwl04 - 307 ng/mLRemisol ChemIron [Mass/Vol]156 ug/fCYchi96 - 153 mcg/dLRemisol ChemIron binding capacity [Mass/Vol]403 ug/mAFbxg635 - 400 mcg/dLRemisol ChemTransferrin [Mass/Vol]288 mg/tCNliukl249 - 370 mg/dLRemisol ChemFerritinon 65-68-8561Efkjlrkn Lvl11 ng/mZHhxyff19-531CorcxvUniversity Hospitals St. John Medical CenterComment on above:Performed By: #### [id number] #### [facility] [address] [place] [address]ECRGADIAIDIwpoqnt By: SYSTEM SYSTEM on 72-09-0569Vijrpopiblb distribution width (RBC) [Ratio]14.4 %High10.9 - 14.2 %Remisol HemeHematocrit (Bld) [Volume fraction]39.0 %Inakrm70.0 - 46.0 %Remisol HemeHemoglobin (Bld) [Mass/Vol]13.2 g/jXVndvep72.0 - 16.0 gm/dLRemisol HemeMCH (RBC) [Entitic mass] 33.5 tyPdgwpi34.0 - 34.0 pgRemisol HemeMCHC (RBC) [Mass/Vol]33.8 g/sZKdpfjd53.4 - 36.0 gm/dLRemisol HemeMCV (RBC) [Entitic vol]99.1 tMRwoknu44.0 - 100.0 fL Remisol HemePlatelet mean volume (Bld) [Entitic vol]9.5 fLNormal6.4 - 10.8 fL Remisol HemePlatelets (Bld) [#/Vol]325.0 E9/ETcexjm067.0 - 500.0 E9/LRemisol HemeRBC (Bld) [#/Vol]3.9 E12/LLow4.3 - 5.9 E12/LRemisol HemeRBC size Nom (Bld) NORMAL *NA* (03/02/25 8:35 AM)Invalid Interpretation CodeRemisol HemeWBC corrected for nucl RBC Auto (Bld) [#/Vol]13.1 E9/LHigh4.0 - 11.0 E9/LRemisol HemeIronon 03-02-2025 Dhwx302 microgram/uVOjep45-818WirdcvUniversity Hospitals St. John Medical CenterComment on above: Performed By: #### [id number] #### [facility] [address] [place], [place] [address]BTMN Calculatedon 58-94-3276OVNU077 microgram/uGToyg961-[address] John Medical CenterComment on above:Performed By: #### [id number] #### [facility] [address] [place], [place] [address]Tvuhyvvqtis [Mass/Vol]288 mg/iKNgktht539-821ZhzfufUniversity Hospitals St. John Medical CenterComment on above:Performed By: #### [id number] #### [facility] [address] [place], [place] [address]QL Note-Physicianon 99-82-6520YS Note-PhysicianED Note-Physician Basic Information Time Seen: Ben Garber [...] other associated symptoms no other prior treatments orcomplaints. Family: Reviewed and noncontributory Social: lives at [...] equal strength and symmetry. No ataxia with finger-noseor dhkf-tf-chjy. Intact strength and sensation of bilateral upper and lower extremities. No Dysphasia. 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 Antibiotics were prescribed or dispensed becausethe patient meets one of the following: [MIPS [...] acute bronchitis/bronchiolitisand antibiotics were prescribed or dispensed today.[DOES NOT SATISFY MIPS PERFORMANCE] Medical Decision Making [...] is negative for any acute cardiopulmonary process. Ramses jaramillo likely has bronchitis given negative workup. She [...] worsening symptoms she should promptly return to theED for reevaluation. Return to ED precautions were reviewed with the patient at length. Assessment/Plan Bronchitis (J40: Bronchitis, not specified as acute or chronic) Cough (R05.9: Cough, unspecified) Dizzi (more content not included)...[facility]orial Health SystemComment on above:Result Comment: Electronically Signed By: Ben Garber PA-C\.br\Date and Time Signed: 02/18/2520:20 EDT\.br\Electronically Co-Signed By: Bakari Chester DO\.br\Date and Time Co-Signed: 02/22/2520:08 EDTXR Chest Single Viewon 52-42-7708OZ Chest Single ViewExam Date/Time: 02/17/2025 19:33 EDT Reason for Exam: [...] Rahul Faith DO Transcribed by: MARCO Technologist: KATHLEENSelect Medical Cleveland Clinic Rehabilitation Hospital, BeachwoodBMFrandy 37-46-5286Aozqh gap [Moles/Vol]14 mmol/LNormal6-16[facility] Comment on above:Performed By: #### [id number] #### [facility] [address] [place], [place] [address]MHP/Creat Ratio16 No WcsbhDgpwtb40-03BdhhgqUniversity Hospitals St. John Medical CenterComment on above:Performed By: #### [id number] #### [facility] [address] [place], [place] [address]Pfiqsif [Mass/Vol]10.4 mg/dLNormal8.9-11.1FCorey HospitalComment on above:Performed By: #### [id number] #### [facility] [address] [place], [place] [address]Rhirewfv [Moles/Vol]105 mmol/ZCvfkzv744-527TiuyleUniversity Hospitals St. John Medical CenterComment on above:Performed By: #### [id number] #### [facility] [address] [place], [place] [address]QU2 [Moles/Vol]21 mmol/ZMkxmql46-42NxuddvUniversity Hospitals St. John Medical Center Comment on above:Performed By: #### [id number] #### [facility] [address] [place], [place] [address]Cbaetwrkef [Mass/Vol]0.7 mg/dLNormal0.5-1.3FCorey HospitalComment on above:Performed By: #### [id number] #### [facility] [address] [place], [place] [address]Xymnwht [Mass/Vol]109 mg/oWHmotdt99-560CenuajUniversity Hospitals St. John Medical CenterComment on above:Performed By: #### [id number] #### [facility] [address] [place], [place] [address]Dhtjoouse [Moles/Vol]3.8 mmol/LNormal3.5-5.3FCorey HospitalComment on above:Performed By: #### [id number] #### [facility] [address] [place], [place] [address]Dthuhk [Moles/Vol]136 mmol/DKwwffu341-601KutlcvUniversity Hospitals St. John Medical CenterComment on above:Performed By: #### [id number] #### [facility] [address], [place] [address]Kgbh nitrogen [Mass/Vol]11 mg/dLNormal5-21[facility] CenterComment on above:Performed By: #### [id number] #### [facility] [address], [place] [address]WMW w/ Auto Diffon 16-61-3426Mqaabiyh Absolute0.0 E9/LNormal 0.0-0.2FCorey HospitalComment on above:Performed By: #### [id number] #### [facility] [address], [place] [address]Eqlcojifo/100 WBC (Bld)0.3 %Normal0.0-2.0[facility] CenterComment on above:Performed By: #### [id number] #### [facility] [address], [place] [address]Vyl Absolute0.0 E9/LNormal0.0-0.5FCorey Hospital Comment on above:Performed By: #### [id number] #### [facility] [address], [place] [address]Gvxdqhvsqea/100 WBC (Bld)0.2 %Normal0.0-8.0[facility] CenterComment on above:Performed By: #### [id number] #### [facility] [address], [place] [address]Dozfdncjpgi distribution width (RBC) [Ratio]14.2 %Normal 10.9-14.2FCorey HospitalComment on above:Performed By: #### [id number] #### [facility] [address], [place] [address]Djgkxrfewa (Bld) [Volume fraction]40.2 %Ygpdvp66.0-46.0[facility] CenterComment on above:Performed By: #### [id number] #### [facility] [address] [place] [address]Mivzjaecmj (Bld) [Mass/Vol]13.6 g/qKEkfxum40.0-16.0[facility] CenterComment on above:Performed By: #### [id number] #### [facility] [address] [place] [address]Dguuo Absolute1.4 E9/LNormal1.0-4.0[facility] Comment on above:Performed By: #### [id number] #### [facility] [address] [place] [address]Diwpdzgplfd/100 WBC (Bld)16.5 %Rdzfyl56.0-50.0[facility] CenterComment on above:Performed By: #### [id number] #### [facility] [address] [place] [address]LRJ (RBC) [Entitic mass]32.6 zvMqdlpk44.0-34.0[facility] CenterComment on above:Performed By: #### [id number] #### [facility] [address] [place] [address]XSTW (RBC) [Mass/Vol]33.8 g/fXViusak62.4-36.0[facility] CenterComment on above:Performed By: #### [id number] #### [facility] [address] [place] [address]HYA (RBC) [Entitic vol]96.4 sMJmzlib90.0-100.0[facility] CenterComment on above:Performed By: #### [id number] #### [facility] [address] [place] [address]Jncn Absolute0.5 E9/LNormal0.2-1.0[facility] Comment on above:Performed By: #### [id number] #### [facility] [address], [place] [address]Odpfcknsk/100 WBC (Bld)5.7 %Normal4.0-14.0[facility] CenterComment on above:Performed By: #### [id number] #### [facility] [address], [place] [address]Ijsjwd Absolute6.5 E9/LNormal2.0-7.5FCorey Hospital Comment on above:Performed By: #### [id number] #### [facility] [address], [place] [address]Zrmqyu Auto77.3 %High36.0-75.0[facility] Comment on above:Performed By: #### [id number] #### [facility] [address], [place] [address]Jdoxiaob962.0 E9/QDjhfxc284.0-500.0[facility] Comment on above:Performed By: #### [id number] #### [facility] [address], [place] [address]Qcynjmsx mean volume (Bld) [Entitic vol]9.3 fLNormal6.4-10.[address] [facility] CenterComment on above:Performed By: #### [id number] #### [facility] [address] [place] [address]UNI2.2 E12/LLow4.3-5.9[facility] CenterComment on above:Performed By: #### [id number] #### [facility] [address], [place] [address]WZC8.4 E9/LNormal4.0-11.0[facility] CenterComment on above:Performed By: #### [id number] #### [facility] [address] [place] [address]LTKWJKCKWBptsswo By: SYSTEM SYSTEM on 27-03-9868Ejgqeez [Mass/Vol]4.5 g/dLNormal3.3 - 5.0 gm/dLRemisol ChemAlbumin/Globulin [Mass ratio] 1.5 {ratio}Normal1.1 - 2.2Remisol ChemALP [Catalytic activity/Vol]55 [iU]/d Oltuej81 - 98 Int._Unit/LRemisol ChemALT No additional P-5'-P [Catalytic activity/Vol]12 [iU]/dNormal6 - 46 Int._Unit/LRemisol ChemAnion gap [Moles/Vol] 14 mmol/LNormal6 - 16 mEq/LRemisol ChemAST [Catalytic activity/Vol]17 [iU]/d Normal5 - 43 Int._Unit/LRemisol ChemBilirubin [Mass/Vol]0.4 mg/dLNormal0.0 - 1.1 mg/dLRemisol ChemBilirubin.direct [Mass/Vol]0.1 mg/dLNormal0.0 - 0.4 mg/dL Remisol ChemBilirubin.indirect [Mass or moles/Vol]0.3 mg/dLNormal0.1 - 0.9 mg/dL Remisol ChemCalcium [Mass/Vol]10.4 mg/dLNormal8.9 - 11.1 mg/dLRemisol Chem Chloride [Moles/Vol]105 mmol/HEdfvvs100 - 111 mmol/LRemisol ChemCO2 [Moles/Vol] 21 mmol/IPbblkp29 - 31 mmol/LRemisol ChemCreatinine [Mass/Vol]0.7 mg/dLNormal0.5 - 1.3 mg/dLRemisol ChemGFR/1.73 sq M.predicted MDRD (S/P/Bld) [Vol rate/Area] 115 mL/min/1.73 d3Rlneyj>=59mL/min/1.73 j9Eahtclf ChemGlobulin (S) [Mass/Vol]3.0 g/dLNormal1.4 - 4.0 gm/dLRemisol ChemGlucose [Mass/Vol]109 mg/pRUgfwtz62 - 199 mg/dLRemisol ChemMagnesium [Mass/Vol]1.8 mg/dLNormal1.3 - 2.4 mg/dLRemisol Chem Potassium [Moles/Vol]3.8 mmol/LNormal3.5 - 5.3 mmol/LRemisol ChemProtein [Mass/Vol]7.5 g/dLNormal6.0 - 7.8 gm/dLRemisol ChemSodium [Moles/Vol]136 mmol/L Nwfvmq913 - 145 mmol/LRemisol ChemTroponin HSpg/mLLow10.10 - 27.10 pg/mLRemisol ChemComment on above:Interpretive Data: The 95% CI (Confidence Interval) PPV (Positive Predictive Value) for myocardial infarction in females is 38 pg/mL, in males 51 pg/mL. The results should be used in conjunction withclinical conditions of myocardial infarction. (Access High Sensitivity Troponin I Instructions For Use, [place], April 2018)Urea nitrogen [Mass/Vol]11 mg/dLNormal5 - 21 mg/dLRemisol ChemUrea nitrogen/Creatinine [Mass ratio]16 mg/hqHxzgod44 - 20Remisol ChemCOAGULATION Ordered By: Nolvia Kahn on 92-70-7666zRSU Coag (PPP) [Time]30.7 dMzhsnj90.1 - 36.5 second(s)[facility] Auto CoagComment on above:Interpretive Data: Parameter 15 days - 4 weeks 1 [...] same coagulation reagent and instrumentation as [facility]. Currently there are no coagulation studies available worldwide for children to 14 days, andno normal ranges. Heparin therapeutic range (represented by Anti-Factor Xa activity of 0.2 - 0.4 U/mL) corresponds to PTT of 56.6 - 109.0 sec.INR Coag (PPP) [Relative time]0.88 {INR}Invalid Interpretation CodeINTEGRIS [facility]ALTH [facility] Auto CoagComment on above:Interpretive Data: INR results are specifically intended to assess patients stabilized on long-term Anticoagulation therapy suggested INR s Less Intensive Anticoagulation 2.0 3.0 Conventional Range 3.0 4.5PT Coag (PPP) [Time]9.8 sNormal9.4 - 12.5 second(s) [facility] Auto CoagComment on above:Interpretive Data: 15 days - 4 weeks 1 - [...] same coagulation reagent and instrumentation as [facility]. Currently there are no coagulation studies available worldwide for children to 14 days, andno normal ranges.ED Clinical Summaryon [id number] Clinical SummaryED Clinical Summary [place] [address] ED Clinical Summary Person Information Name: SHAZIA CHOU [facility] Age: 34 Years : 1990 Sex: Female Language: Mexican PCP: Jennie Durand DO Marital Status: Phone: [phone] MRN: Visit Id: Visit Reason: Headache; Cough; [...] 02/17/2025 21:08:51 02/17/2025 21:08:51 02/17/2025 21:08:51 ADDRESS: [address] [place] [phone] PHYS DOC NOTES: MEDICAL INFORMATION: Prescriptions Given: New Medications [id number], [address] [place], [place] [id number], [phone] brompheniramine/dextromethorphan/PSE (Bromfed DM oral syrup) 10 Milliliter [...] up: With: Address: When: Jennie Durand [address], [address], [address] [place] [address] Business (1) In 3 days 02/20/2025 DIAGNOSIS: Bronchitis; Cough; Dizziness; Vasovagal near syncopeNoKettering Health Washington Township CenterED Patient Summaryon [id number] Patient SummaryED Patient Summary [address] [address] Patient Discharge Instructions Person Information Name: SHAZIA CHOU Age: 34 Years Arrival Date: 02/17/2025 18:53:55 Discharge Diagnosis: Bronchitis; Cough; Dizziness; Vasovagal near syncope Primary Care Physician: Jennie Durand DO Provider Information Primary Provider: Bakari Chester DO [employer] Environmental Engineer:Ben Garber PA-C. The exam and treatment you received in the Emergency Department were for an urgent problem and are not intended as complete care. It is important that you follow up with a doctor, nurse practitioner,or physician???s fast food assistant restaurant manager for ongoing care. If your symptoms become worse or you do not improve asexpected and you are unable to reach your usual health care provider, you should return to the Emergency Department. We are available 24 hours a day. SHAZIA CHOU has been given the following list of patient education materials, prescriptions and follow-up instructions: Follow-up Instructions: With: Address: When: Jennie Durand [facility] [address] , [address] [address] Business (1) In 3 days 02/20/2025 In the event that this physician does not participate in your insurance network, please consult with your insurance company to find a nearby participating provider. Patient Education Materials: Near-Syncope; Acute Bronchitis, Adult A MESSAGE TO ALL PATIENTS REGARDING OPIOIDS PRESCRIPTION OPIOIDS: WHAT YOU NEED TO KNOW Prescription opioids can be used to help relieve kbtcmoof-vc-yfyzcc pain and are often prescribed following a [...] you may be struggli (more content not included)...Normal [facility] CenterHEMATOLOGYOrdered By: SYSTEM SYSTEM on 02-17-2025 Basophils/100 WBC (Bld)0.3 %Normal0.0 - 2.0 %Remisol HemeBasophils/Leukocytes Auto (Bld) [Pure # fraction]0.0 E9/LNormal0.0 - 0.2 E9/LRemisol HemeEosinophils (Bld) [#/Vol]0.0 E9/LNormal0.0 - 0.5 E9/LRemisol HemeEosinophils/100 WBC (Bld) 0.2 %Normal0.0 - 8.0 %Remisol HemeErythrocyte distribution width (RBC) [Ratio] 14.2 %Wplpxr66.9 - 14.2 %Remisol HemeHematocrit (Bld) [Volume fraction]40.2 % Fzfsda95.0 - 46.0 %Remisol HemeHemoglobin (Bld) [Mass/Vol]13.6 g/jZAaffuu67.0 - 16.0 gm/dLRemisol HemeLymphocytes (Bld) [#/Vol]1.4 E9/LNormal1.0 - 4.0 E9/L Remisol HemeLymphocytes/100 WBC (Bld)16.5 %Ehtkbo11.0 - 50.0 %Remisol HemeMCH (RBC) [Entitic mass]32.6 psXivrdk96.0 - 34.0 pgRemisol HemeMCHC (RBC) [Mass/Vol] 33.8 g/eWBqxeen89.4 - 36.0 gm/dLRemisol HemeMCV (RBC) [Entitic vol]96.4 fLNormal 80.0 - 100.0 fLRemisol HemeMonocytes (Bld) [#/Vol]0.5 E9/LNormal0.2 - 1.0 E9/L Remisol HemeMonocytes/100 WBC (Bld)5.7 %Normal4.0 - 14.0 %Remisol Heme Neutrophils (Bld) [#/Vol]6.5 E9/LNormal2.0 - 7.5 E9/LRemisol HemeNeutrophils/100 WBC (Bld)77.3 %High36.0 - 75.0 %Remisol HemePlatelet mean volume (Bld) [Entitic vol]9.3 fLNormal6.4 - 10.8 fLRemisol HemePlatelets (Bld) [#/Vol]350.0 E9/L Cohhtp410.0 - 500.0 E9/LRemisol HemeRBC (Bld) [#/Vol]4.2 E12/LLow4.3 - 5.9 E12/L Remisol HemeWBC corrected for nucl RBC Auto (Bld) [#/Vol]8.4 E9/LNormal4.0 - 11.0 E9/LRemisol HemeHep Func Panelon 81-16-5865Stkchfg [Mass/Vol]4.5 g/dLNormal 3.3-5.0[facility] CenterComment on above:Performed By: #### [id number] #### [facility] [address], [place] [address]Kbassni/Globulin [Mass ratio]1.5 {ratio}Normal1.1-2.2FCorey HospitalComment on above:Performed By: #### [id number] #### [facility] [address], [place] [address]Xyt Phos55 Int._Unit/WHyfxqh77-23SmkfzlUniversity Hospitals St. [facility] Comment on above:Performed By: #### [id number] #### [facility] [address], [place] [address]RMH24 Int._Unit/LNormal6-46[facility] Medical CenterComment on above:Performed By: #### [id number] #### [facility] [address], [place] [address]XRH32 Int._Unit/LNormal5-43[facility] CenterComment on above:Performed By: #### [id number] #### [facility] [address], [place] [address]Ublm Direct0.1 mg/dLNormal0.0-0.4FCorey Hospital Comment on above:Performed By: #### [id number] #### [facility] [address], [place] [address]Pzal Indirect0.3 mg/dLNormal0.1-0.9[facility] Comment on above:Performed By: #### [id number] #### [facility] [address] [place] [address]Ksls Total0.4 mg/dLNormal0.0-1.1FCorey Hospital Comment on above:Performed By: #### [id number] #### [facility] [address] [place] [address]Hhgqzphd (S) [Mass/Vol]3.0 g/dLNormal1.4-4.0[facility] CenterComment on above:Performed By: #### [id number] #### [facility] [address] [place] [address]Duaordy [Mass/Vol]7.5 g/dLNormal6.0-7.8[facility] CenterComment on above:Performed By: #### [id number] #### [facility] [address], [place] [address]Rntbrzihiue 96-28-1142Fnfjatkog [Mass/Vol]1.8 mg/dLNormal 1.3-2.4FCorey HospitalComment on above:Performed By: #### [id number] #### [facility] [address], [place] [address]RU & PTTon 02-09-4794BMX Coag (PPP) [Relative time]0.88 {INR} Invalid Interpretation CodeFisher Mcminn Medical CenterComment on above:Result Comment: INR results are specifically intended to assess patients stabilized on long-term Anticoagulation therapy suggested INR???s ???Less Intensive Anticoagulation??? 2.0 ??? 3.0 Conventional Range 3.0 ??? 4.5Performed By: #### [id number] #### [facility] [address], [place] [address]EM7.8 second(s)Normal9.4-12.5FCorey HospitalComment on above:Result Comment: 15 days - 4 weeks 1 [...] same coagulation reagent and instrumentation as [facility]. Currently there are no coagulation studies available worldwide for children to 14 days, andno normal ranges.Performed By: #### [id number] #### [facility] [address], [place] [address]UUM52.7 second(s)Mvrahx68.1-36.5FCorey Hospital Comment on above:Result Comment: Parameter 15 days - 4 weeks [...] same coagulation reagent and instrumentation as [facility]. Currently there are no coagulation studies available worldwide for children to 14 days, andno normal ranges. Heparin therapeutic range (represented by Anti-Factor Xa activity of 0.2 - 0.4 U/mL) corresponds to PTT of 56.6 - 109.0 sec.Performed By: #### [id number] #### [facility] [address], [place] [address]Cdl-Rmfwxms Noteon [id number]-Arrival NotePre-Arrival Note Pre-Arrival Summary Name: , EDUARDA Current Date: 02/17/2025 18:54:29 EDT Gender: Female Date of : Age: 34 Pre-Arrival Type: EMS ETA: 02/17/2025 19:10:00 EDT Primary Care Physician: Presenting Problem: dizziness Pre-Arrival User: Libby Marin RN Referring Source: Location: [place] Completion Date/Time: 02/17/2025 18:40:00 [facility] Emergency Department Pre-Hospital Report Form Vital Signs: Pre-Hospital Report: Treatment in Route: Response to Treatment: Misc. Issues:NormalUniversity Hospitals St. John Medical CenterTroponin 0 Hr.on 02-17-2025 Troponin HS<2.31Uye32.10-27.10[facility] Medical CenterComment on above:Result Comment: The 95% CI (Confidence Interval) PPV (Positive Predictive Value) for myocardial infarction in females is 38 pg/mL, in males 51 pg/mL. The results should be used in conjunction with clinical conditions of myocardial infarction. (Access High Sensitivity Troponin I Instructions For Use, [place], April 2018)Performed By: #### [id number] #### [facility] [address], [place] [address]RQ with Cult Rflxon 11-01-6708Qhdai (U)Light-YellowNormalYellow [facility] CenterComment on above:Result Comment: Microscopic readings are only performed on those samples that meet specific criteria set forth by [facility].Performed By: #### [id number] #### [facility] [address], [place] [address]Lwppeyr (U) [Mass/Vol]NegativeNormalNegativeUniversity Hospitals St. John Medical CenterComment on above:Performed By: #### [id number] #### [facility] [address], [place] [address]Mwpblon Ql (U)NegativeNormalNegativeUniversity Hospitals St. [facility] Comment on above:Performed By: #### [id number] #### [facility] [address], [place] [address]GF BloodNegativeNormalKnox Community Hospital Comment on above:Performed By: #### [id number] #### [facility] [address], [place] [address]VC BacteriaTraceNormalTraceUniversity Hospitals St. John Medical CenterComment on above:Performed By: #### [id number] #### [facility] [address], [place] [address]HD ClarityClearNormalClearUniversity Hospitals St. John Medical CenterComment on above:Performed By: #### [id number] #### [facility] [address], [place] [address]PL Leuk Est25 Keven/uLNormalNegativeUniversity Hospitals St. [facility] Comment on above:Performed By: #### [id number] #### [facility] [address], [place] [address]XD MucousNegativeNormalNegMartin Memorial Hospital Comment on above:Performed By: #### [id number] #### [facility] [address], [place] [address]DJ NitriteNegativeNormalNegMartin Memorial Hospital Comment on above:Performed By: #### [id number] #### [facility] [address], [place] [address]MB pH7.5Invalid Interpretation Code5.0-9.0[facility] CenterComment on above:Performed By: #### [id number] #### [facility] [address], [place] [address]ZL ProteinNegativeNormalNegativeUniversity Hospitals St. [facility] Comment on above:Performed By: #### [id number] #### [facility] [address], [place] [address]VV DLD7-7Duovkt5-8OkweshCorey HospitalComment on above: Performed By: #### [id number] #### [facility] [address], [place] [address]VU Spec Grav1.006Invalid Interpretation Code1.005-1.030[facility] Medical CenterComment on above:Performed By: #### [id number] #### [facility] [address], [place] [address]JW Squam Epithelial3-4Invalid Interpretation CodeUniversity Hospitals St. John Medical CenterComment on above:Performed By: #### [id number] #### [facility] [address], [place] [address]RM Transitional Ivjtdymote8-3Rdrcuk4-2Ejrxmg [facility] Medical CenterComment on above:Performed By: #### [id number] #### [facility] [address], [place] [address]DR UrobilinogenNegativeNormalNegativeUniversity Hospitals St. John Medical CenterComment on above:Performed By: #### [id number] #### [facility] [address], [place] [address]QN YWV7-1Tgwoaz0-3GxjfmzCorey HospitalComment on above: Performed By: #### [id number] #### [facility] [address], [place] [address]Qrideliwqcha (U) [Mass/Vol]NegativeNormalNegativeUniversity Hospitals St. John Medical CenterComment on above:Performed By: #### [id number] #### [facility] [address], [place] [address]XV Spec DescClean CatchNormalFisher [facility] Medical CenterComment on above:Performed By: #### [id number] #### [facility] [address], [place] [address]NCDCOMFCPYQrkedwi By: SYSTEM SYSTEM on 08-58-6226Idjvfgua Auto Ql (U)Trace /HPFNormalTrace/HPFFT UA Auto SSBilirubin Ql (U)NegativeNormal Negativemg/dLINTEGR[facility] UA Auto SSClarity (U)Clear (02/17/25 7:24 PM)NormalClearFBEAVER COUNTY [facility] UA Auto SSColor (U)Light-Yellow 1 (02/17/25 7:24 PM)NormalYellowINTEGRIS [facility]ALTH [facility] UA Auto SSComment on above:Interpretive Data: Microscopic readings are only performed on those samples that meet specific criteria set forth by [facility].Epithelial cells.squamous Auto (Urine sed) [#/Area]3-4 graded/HPFInvalid Interpretation CodeINTEGRIS [facility]ALTH [facility] UA Auto SSGlucose Ql (U)NegativeNormalNegativemg/dLINTEGRIS [facility] UA Auto SS Hemoglobin Auto test strip (U) [Mass/Vol]NegativeNormalNegativemg/dLINTEGRIS [facility] UA Auto SSKetones Auto test strip Ql (U)NegativeNormalNegativemg/dLINTEGRIS [facility] UA Auto SS Leukocyte esterase Auto test strip Ql (U)25 Keven/uL Keven/uLNormalNegativeLeu/uL [facility] UA Auto SSMucus Auto Ql (U)NegativeNormalNegativegraded/LPFFTMC UA Auto SS Nitrite Auto test strip Ql (U)NegativeNormalNegativemg/dLINTEGRIS [facility] UA Auto SSpH (U) 7.5 *NA* (02/17/25 7:24 PM)Invalid Interpretation Code5.0 - 9.0[facility] UA Auto SSProtein Ql (U)NegativeNormalNegativemg/dLINTEGRIS [facility] UA Auto SSRBC Ql (U)0-3 graded/HPFNormal 0-3graded/HPFINTEGRIS [facility]ALTH [facility] UA Auto SSSpecific gravity (U) [Rel density]1.006 *NA* (02/17/25 7:24 PM)Invalid Interpretation Code1.005 - 1.030[facility] UA Auto SS Transitional cells Computer assisted (U) [#/Area]0-2 graded/HPFNormal 0-2graded/HPFINTEGRIS [facility]ALTH [facility] UA Auto SSUrobilinogen (U) [Mass/Vol]NegativeNormal Negativemg/dLINTEGRIS [facility]ALTH [facility] UA Auto SSWBC Auto (Urine sed) [#/Area]0-5 graded/HPFNormal 0-5graded/HPFINTEGRIS [facility]ALTH [facility] UA Auto SSURINALYSISOrdered By: Ben Garber on [id number] Spec DescClean Catch (02/17/25 7:24 PM)NormalINTEGRIS [facility]ALTH [facility] UA Auto SSeGFRon [id number] mL/min/1.73 m2 Normal>=59Fisher [facility] Medical CenterComment on above:Performed By: #### [id number] #### [facility] [address] [place], [place] [address]Gxqfz and Vascular Office/Clinic Noteon [id number] and Vascular Office/Clinic NoteHeart and Vascular Office/Clinic Note Chief Complaint New [...] her breath. Patient states heart disease runs inher family. Patient had gastric bypass in 2020. [...] beat which represents less than 0.01%. 7. UT interval 0.15 second, QRS 0.10 second, QT 0.40 second at heart rate of 64 beats per minute. [2] Assessment/Plan 1. Palpitation (R00.2: Palpitations) Patient has strong family history of cardiac disease including mother, father, maternal grandmotherand siblings. Patient will do a 14 day [...] (02/11/2019), x3, Foot, Foot, Gastric (more content notincluded)... Memorial Health SystemComment on above:Result Comment: Electronically Signed By: Nata BHAKTA, Jak W\.br\Date and Time Signed: 02/16/25 14:43 EDT\.br\Electronically Co-Signed By: Roxana Shipman\.br\Date and Time Co-Signed: 02/16/25 14:37 EDTXR Chest 2 Viewson 23-23-9612XK Chest 2 ViewsExam Date/Time: 02/16/2025 14:18 EDT Reason for Exam: [...] Julio Snyder MD Transcribed by: MARCO Technologist: CarlosUniversity Hospitals St. John Medical CenterHolter Monitoron 40-58-2869Qxxsad MonitorHolter Monitor HOLTER MONITOR DATES OF STUDY: 02/03/2025 [...] beat which represents less than 0.01%. 7. UT interval 0.15 second, QRS 0.10 second, QT 0.40 second at heart rate of 64 beats per minute. READ BY: terrell Hernandez Dictated: 02/10/2025 [id number] Transcribed: 02/13/2025Memorial Health SystemComment on above:Result Comment: Electronically Signed By: Fernandez Daniels MD\.br\Date and Time Signed: 02/13/25 18:05 EDTMain OR Intraoperative Recordon 96-35-5712Spxc OR Intraoperative RecordMain OR Intraoperative Record IntraOp Document Type FTPM Summary Primary Physician: Babar Mayers DO Finalized Date/Time: 01/24/25 09:58:05 Pt. Name: SHAZIA CHOU/Sex: 1990 Female Med Rec #: [id number] Physician: Babar Mayers DO Financial #: [id number] Pt. Type: P Room/Bed: / Admit/Disch: 01/24/25 08:25:39 - Institution: Case Times FTPM Entry 1 Patient Times In Room 01/24/25 09:48:00 Out Room 01/24/25 09:58:00 Procedure Times Start 01/24/25 09:51:00 Stop 01/24/25 09:57:00 Anesthesia Times Last Modified By: Nolvia Rodas RN 01/24/25 09:57:47 Case Attendance FTPM Entry 1 Entry 2 Entry 3 Case Attendee Talib SNOWDEN, Babar Rodas RN, Nolvia Rand RN, Corby Blue Role Performed Surgeon - Primary Band Aid Machine Operator - Primary Scrub - Primary Time In 01/24/25 09:48:00 01/24/25 09:48:00 01/24/25 09:48:00 Time Out 01/24/25 09:58:00 01/24/25 09:58:00 01/24/25 09:58:00 Procedure MEDIAL BRANCH MEDIAL BRANCH MEDIAL BRANCH BLOCK(Bilateral) BLOCK(Bilateral) BLOCK(Bilateral) Comments Last Modified By: Nolvia Rodas RN, RN, Madison A Pritchard RN, Madison A 01/24/25 09:57:49 01/24/25 09:57:49 01/24/25 09:57:49 Entry 4 Case Attendee Jennie Hurtado Role Performed Contact Center Specialist Time In 01/24/25 09:48:00 Time Out 01/24/25 [...] Nolvia Rodas RN, Harvey RN, Corby Blue, Talib SNOWDEN, Genesis Perdomo Amy Time Out Complete 01/24/25 09:51:00 Outcomes [...] Procedure Yes Primary Surgeon Babar Mayers DO 01/24/25 09:51:00 Stop 01/24/25 09:57:00 Anesthesia Type [...] and tissue Entry 1 Skin Integrity Intact, [place], Warm, & Skin Abnormality No Dry Outcomes [...] Vu Rodas RN (more content not included)... [facility] Pre[facility]ordon 41-94-3867Nzzq OR Preoperative RecordMain OR Preoperative Record Holding Area Document Type FTPM Summary Primary Physician: Babar Mayers DO Finalized Date/Time: 01/24/25 08:43:59 Pt. Name: SHAZIA CHOU Isreal Montgomery/Sex: 1990 Female Med Rec #: [id number] Physician: Babar Mayers DO Financial #: [id number] Pt. Type: P Room/Bed: / Admit/Disch: 01/24/25 08:25:39 - Institution: Case Times Holding FTPM Pre-Care Text: Verifies consent for planned procedure, identifies individual values and wishes concerning care, includes family members in perioperative teaching Secures patient's records' belongings, and valuables, maintains patient's dignity and privacy, and maintains patient confidentiality Entry 1 In Holding 01/24/25 08:38:00 Outcomes Met? Yes Last Modified By: Kayy ROLLE, Gabrielle Blue 01/24/25 08:38:59 Post-Care Text: The patient participates in decisions affecting his or her perioperative plan of care The patient'sright to privacy is maintained Surgery Checklist FTPM [...] Signatures Signed By: Gabrielle Sultana RN 01/24/25 08:43[facility] Health SystemMR head/brain wo/w conon 21-89-3745MS head/brain wo/w [facility] Main [place] [address] [place] [address] MRI Report Signed Patient: Shazia Chou MR#: [id number] : 1990 Acct:[id number] Age/Sex: 33 / F ADM Date: 12/16/24 Loc: MR Room: Type: [facility] Attending Dr: Corby Larsen DO Copies [...] Denny Escalante M.D.12/16/2024 2:50 PM Dictation Location: [place] [address] Transcribed By: MARKY 12/16/24 7120 Dictated By: Denny Escalante MD 12/16/24 1404 Signed By: 12/16/24 [id number] Clinic Hospitaletic resonance imaging reportOrdered By: Denny Escalante on 57-61-5940Nhnvn reportPARKWOOD HOSPITAL Main [place] [address] [place] [address] MRI Report Signed Patient: Shazia Chou MR#: [id number] : 1990 Acct:[id number] Age/Sex: 33 / F ADM Date: 5 Loc: MR Room: Type: [facility] Attending Dr: Corby Larsen DO Copies [...] Denny Escalante M.D.12/16/2024 2:50 PM Dictation Location[facility] Transcribed By: [facility] 12/16/24 3827 Dictated By: Denny Escalante MD 12/16/24 1404 Signed By: 12/16/24 [facility] Work Phone: XR Spine Lumbar Complete Including Bendion 12-14-2024 XR Spine Lumbar Complete Including BendiExam Date/Time: 12/14/2024 11:38 EDT Reason for Exam: [...] Julio Snyder MD Transcribed by: MARCO Technologist: [facility]24 hour urine albumin/total protein ratio by electrophoresisOrdered By: Jacob Baker on 28-25-5945Kgacpqc Elph (24H U) [Mass fraction]Albumin/Protein.total in 24 hour Urine by Electrophoresis.[facility]24 hour urine gamma globulin/total protein ratio by electrophoresisOrdered By: Jacob Baker on 22-31-1803Udpau globulin Elph (24H U) [Mass fraction]Gamma globulin/Protein.total in 24 hour Urine by Electrophoresis.[facility]24 hour urine protein monoclonal/total protein by electrophoresis Ordered By: Jacob Baker on 55-67-8727Bxybgbz.monoclonal Elph (24H U) [Mass fraction]Protein.monoclonal/Protein.total in 24 hour Urine by ElectrophoresisNot [facility] & Brentwood HospitalANA Antinuclear Antibodieson 12-12-2024 Antinuclear Abs, IFANegativeNormal.The [facility] Physician GroupComment on above:Result Comment: Negative <1:80 Borderline 1:80 Positive >1:80 ICAP nomenclature: AC-0 For more information about Hep-2 cell patterns use ANApatterns.org, the official website for the International Consensus on Antinuclear Antibody (CYNDI) Patterns (ICAP). Performed at: [address] [id number] Sourcing Intern: Santy Storey PhD, Phone: [phone] By: #### ANTIR, ADNA, SJOGRENS, HELM, C3, HISAB, CCP, CHROMATIN, CENTROME, RA, CH50, CYNDI, WAL95TU, JO1, B2 GLYPROT, CARDIO GMA, C4 #### [facility] ,Result Comment: Negative <1:80 Borderline 1:80 Positive >1:80 ICAP nomenclature: AC-0 For more information about Hep-2 cell patterns use ANApatterns.org, the official website for the International Consensus on Antinuclear Antibody (CYNDI) Patterns (ICAP). Performed at: [address] [id number] Sourcing Intern: Santy Storey PhD, Phone: [phone] PERFORMED BY: [place] [address] PATHOLOGIST COMPLAINT EVALUATION SUPERVISOR CARLOS KNAPP M.D.Performed By: #### CMP, CK, HS TROP, CBC #### [address] StreetAlanine aminotransferase [Enzymatic activity/volume] in Serum or PlasmaOrdered By: Jacob Baker on 36-95-1983JHB [Catalytic activity/Vol]Alanine aminotransferase [Enzymatic activity/volume] in Serum or Plasma7-52Mer[facility] Memorial HospitalAlbumin [Mass/volume] in Serum or Plasma by Bromocresol green (BCG) dye binding methoOrdered By: Jacob Baker on 02-77-3731Vzccrwy BCG dye [Mass/Vol]Albumin [Mass/volume] in Serum or Plasma by Bromocresol green (BCG) dye binding metho3.5-5.7FCleveland ClinicAlkaline phosphatase [Enzymatic activity/volume] in Serum or PlasmaOrdered By: Jacob Baker on 02-42-5046LPE [Catalytic activity/Vol]Alkaline phosphatase [Enzymatic activity/volume] in Serum or Vfwgow92-086OtnsikflbMercy Memorial HospitalAnti-Centromere B Antibodieson 79-13-0593Rdhf-Centromere B Antibodies<0.2 Normal0.0-0.9The [facility] Physician GroupComment on above:Result Comment: Performed at: [address] [id number] Sourcing Intern: Santy Storey PhD, Phone: [phone] By: #### CMP, CK, HS TROP, CBC #### [place] [address] USAAnti-RNPon 48-28-8295Dhdq-FOOD SAFETY MANAGER<0.1Mpjzgq2.0-0.9The [facility] Physician GroupComment on above:Performed By: #### ANTIR, ADNA, SJOGRENS, HELM, C3, HISAB, CCP, CHROMATIN, CENTROME, RA, CH50, CYNDI, ZLE62BF, JO1, B2 GLYPROT, CARDIO GMA, C4 #### [facility] ,Anti-Helm Antibodieson 00-52-9032Ozor-Helm Antibodies<0.9Ptpaln6.0-0.9The [facility] Physician GroupComment on above:Performed By: #### CMP, CK, HS TROP, CBC #### [place] [address] USAAnti-dsDNA(DBL)Abon 14-31-3042Pjun-dsDNA(DBL)Ab1 [IU]/mL Normal0-9The [facility] Physician GroupComment on above:Result Comment: Negative <5 Equivocal 5 - 9 Positive >9Performed By: #### CMP, CK, HS TROP, CBC #### [place] [address] USAAnticardiolipin IgG/M/A, Qnon 90-83-1596Jryanazpfzsbari Ab, IgA,Qn<9Taaalu5-49Wqw [facility] Physician GroupComment on above:Result Comment: Negative: <12 Indeterminate: 12 - 20 Low-Med Positive: >20 - 80 High Positive: >80Performed By: #### CMP, CK, HS TROP, CBC #### [place] [address] USAAnticardiolipin Ab, IgG,Qn<1Qnpusr4-32Cax [facility] Physician GroupComment on above:Result Comment: Negative: <15 Indeterminate: 15 - 20 Low-Med Positive: >20 - 80 High Positive: >80Performed By: #### CMP, CK, HS TROP, CBC #### [place] [address] USAAnticardiolipin Ab, IgM,Qn<6Xyvvko7-22Esr [facility] Physician GroupComment on above:Result Comment: Negative: <13 Indeterminate: 13 - 20 Low-Med Positive: >20 - 80 High Positive: >80Performed By: #### CMP, CK, HS TROP, CBC #### [facility] [address] [place] [address] USAAppearance of UrineOrdered By: Jacob Baker on 06-38-9873Wnyzcjrfvs (U)Urine appearanceCleMercer County Community Hospital Aspartate aminotransferase [Enzymatic activity/volume] in Serum or PlasmaOrdered By: Jacob Baker on 56-95-3407FHV [Catalytic activity/Vol]Aspartate aminotransferase [Enzymatic activity/volume] in Serum or Ycowtm47-38VcfcuixglMercy Memorial HospitalBacteria [Presence] in Urine by AutomatedOrdered By: Jacob Baker on 36-41-7210Miuuzzdx Auto Ql (U)Bacteria [Presence] in Urine by AutomatedNone SeenMercy Memorial HospitalBasophils Auto (Bld) [#/Vol] Ordered By: Jacob Baker on 30-23-0869Cnpaofzmf (Bld) [#/Vol]Automated basophil count0.0-0.2FCleveland ClinicBasophils/100 WBC Auto (Bld)Ordered By: Jacob Baker on 77-48-2651Iphojhbcr/100 WBC (Bld)Automated basophil %.Mercy Memorial HospitalBeta 2 Glycoprotein I Ab IgG/Mon 24-60-8386Pwgf 2 Glycoprotein I Ab, IgG<7Pkvcgw7-21Qtn [facility] Comment on above:Result Comment: Result Units: GPI IgG units The reference interval reflects a 3SD or 99th percentile interval, which is thought to represent a potentially clinically significant result in accordance with the International Consensus Statement on the classification criteria for definitive antiphospholipid syndrome (APS). J Thromb Haem 2006;4:295-306.Performed By: #### CMP, CK, HS TROP, CBC #### [facility] [address] [place] [address] USABeta 2 Glycoprotein I Ab, IgM<5Onnvyn8-35Cxy [facility] Physician GroupComment on above:Result Comment: Result Units: GPI IgM units The reference interval reflects a 3SD or 99th percentile interval, which is thought to represent a potentially clinically significant result in accordance with the International Consensus Statement on the classification criteria for definitive antiphospholipid syndrome (APS). J Thromb Haem 2006;4:295-306. Performed at: - [facility] [id number] Sourcing Intern: Santy Storey PhD, Phone: [phone] By: #### CMP, CK, HS TROP, CBC #### [facility] [address] [place] [address] USABeta 2 glycoprotein 1 IgG Ab [Units/volume] in Serum Ordered By: Jacob Baker on 43-67-2365Vkiz 2 glycoprotein 1 IgG Qn (S)Beta 2 glycoprotein 1 IgG Ab [Units/volume] in Serum0-[facility]cy Memorial HospitalComment on above:Result Units: GPI IgG unitsThe reference interval reflects a 3SD or 99th percentileinterval, which is thought to represent a potentiallyclinically significant result in accordance with theInternational Consensus Statement on the classificationcriteria for definitive antiphospholipid syndrome (APS).JThromb Haem 2006;4:295-306.Bilirubin Test strip Ql (U)Ordered By: Jacob Baker on 44-45-6943Tbzmfjjkr Ql (U)Bilirubin.total [Presence] in Urine by Test stripNegativeMercy Memorial Hospital Bilirubin.total [Mass/volume] in Serum or PlasmaOrdered By: Jacob Baker on 12-03-1896Sjtrxbcbb [Mass/Vol]Bilirubin.total [Mass/volume] in Serum or Plasma 0.3-1.0Mercy Memorial HospitalC reactive protein [Mass/volume] in Serum or PlasmaOrdered By: Jacob Baker on 47-22-7116TKH [Mass/Vol]C reactive protein [Mass/volume] in Serum or Plasma0.0-0.5FCleveland Clinic C-Reactive Proteinon 98-14-9749FAJ [Mass/Vol]mg/LNormal0.0-0.5The [facility] Physician GroupComment on above:Performed By: #### CMP, CK, HS TROP, CBC #### [facility] [address] [place] [address] USACalcium [Mass/volume] in Serum or PlasmaOrdered By: Jacob Baker on 68-53-6125Klkdsru [Mass/Vol]Calcium [Mass/volume] in Serum or Plasma8.6-10.3FCleveland ClinicCarbon dioxide, total [Moles/volume] in Serum or PlasmaOrdered By: Jacob Baker on 43-59-9518DT4 [Moles/Vol]Carbon dioxide, total [Moles/volume] in Serum or Yigdkb37.0-31.0 [facility] HospitalChloride [Moles/volume] in Serum or Plasma Ordered By: Jacob Baker on 26-71-8389Mopzdxtk [Moles/Vol]Chloride [Moles/volume] in Serum or Xxnjpo97-976WrrtgwkrkMercy Memorial Hospital Chromatin Antibodyon 70-76-1840Joxkcvrip Antibody<0.0Rpxqpn8.0-0.9The [facility] Physician GroupComment on above:Result Comment: PERFORMED BY: [place] [address] PATHOLOGIST COMPLAINT EVALUATION SUPERVISOR CARLOS KNAPP M.D.Performed By: #### CMP, CK, HS TROP, CBC #### [facility] [address] [place] [address] USACoagulation Profileon 67-67-4799jOIU Coag (Bld) [Time]29.5 yFicjau17.1-36.5The [facility] Physician GroupComment on above:Result Comment: A hematocrit value greater than 55% may lead to inaccurate results in coagulation testing. Patients having hematocrit values >55% require a special collection tube for coagulation studies. Please contact the laboratory at [phone] for redraw instructions. PERFORMED BY: [address] [address] PATHOLOGIST COMPLAINT EVALUATION SUPERVISOR CARLOS KNAPP M.D.Performed By: #### CMP, CK, HS TROP, CBC #### [facility] [address] [place] [address] USAINR Coag (PPP) [Relative time]0.8 {INR}NormalThe [facility] Anson Physician GroupComment on above:Result Comment: INR Therapeutic Range A) Pre- and [...] patients with mechanical heart valves: 3 - 4.5Performed By: #### CMP, CK, HS TROP, CBC #### [facility] [address] [place] [id number] USAPT Coag (PPP) [Time]9.6 sNormal9.0-12.9The [facility] Physician GroupComment on above:Result Comment: A hematocrit value greater than 55% may lead to inaccurate results in coagulation testing. Patients having hematocrit values >55% require a special collection tube for coagulation studies. Please contact the laboratory at [phone] for redraw instructions.Performed By: #### CMP, CK, HS TROP, CBC #### [facility] [address] [place] [id number] USAColor Auto (U)Ordered By: Jacob Baker on 12-12-2024 Color (U)Color of Urine by AutoYelMetroHealth Cleveland Heights Medical CenterComplement C3on 78-04-2421Sefxijodch C3133 mg/fNGvapum48-336Kgo [facility] Comment on above:Performed By: #### CMP, CK, HS TROP, CBC #### [facility] [address] [place] [address] USAComplement C4on 32-75-7448Oryckgzmta C423 mg/xTYhkmel36-46 The [facility]son Physician GroupComment on above:Performed By: #### CMP, CK, HS TROP, CBC #### [facility] [address] [place] [id number] USAComplement Total (CH50)on 87-06-2530Jbpvbkpzwe Total (CH50)>60Normal>41The [facility]son Physician GroupComment on above:Result Comment: Age Male Female 1 - 30 [...] of range values. Performed at: - [facility] [address] [id number] Sourcing Intern: Santy Storey PhD, Phone: [phone] PERFORMED BY: [place] [address] PATHOLOGIST COMPLAINT EVALUATION SUPERVISOR CARLOS KNAPP M.D.Performed By: #### ANTIR, ADNA, SJOGRENS, HELM, C3, HISAB, CCP, CHROMATIN, CENTROME, RA, CH50, CYNDI, RRZ53RQ, JO1, B2 GLYPROT, CARDIO GMA, C4 #### [facility] ,Complete Blood Count Auto Diffon 42-52-6952Xmasatxpu (Bld) [#/Vol]0.1 10*3/uL Normal0.0-0.2The [facility]son Physician GroupComment on above:Performed By: #### CMP, CK, HS TROP, CBC #### [place] [address] USABasophils/100 WBC (Bld)0.8 %Normal.The [facility]son Physician GroupComment on above:Performed By: #### CMP, CK, HS TROP, CBC #### [place] [address] USAEosinophils (Bld) [#/Vol]0.2 10*3/uLNormal0.0-0.45The [facility] Physician GroupComment on above:Performed By: #### CMP, CK, HS TROP, CBC #### [place] [address] USAEosinophils/100 WBC (Bld)2.0 %Normal.The [facility] Physician GroupComment on above:Performed By: #### CMP, CK, HS TROP, CBC #### [place] [address] USAErythrocyte distribution width (RBC) [Ratio]15.3 %Normal 11.9-15.3The [facility]son Physician GroupComment on above:Performed By: #### CMP, CK, HS TROP, CBC #### [place] [address] USAHematocrit (Bld) [Volume fraction]40.4 %Nkoojf67.0-46.4The [facility] Physician GroupComment on above:Performed By: #### CMP, CK, HS TROP, CBC #### [place] [address] USAHemoglobin (Bld) [Mass/Vol]13.6 g/bVBxhzrt13.8-15.4The [facility] Physician GroupComment on above:Performed By: #### CMP, CK, HS TROP, CBC #### [place] [address] USALymphocytes (Bld) [#/Vol]1.8 10*3/uLNormal1.00-4.8The [facility] Physician GroupComment on above:Performed By: #### CMP, CK, HS TROP, CBC #### [place] [address] USALymphocytes/100 WBC (Bld)18.1 %Normal.The [facility] Physician GroupComment on above:Performed By: #### CMP, CK, HS TROP, CBC #### [place] [address] USAMCH (RBC) [Entitic mass]33.1 dqTottxa99.7-34.3The [facility] Physician GroupComment on above:Performed By: #### CMP, CK, HS TROP, CBC #### [place] [address] USAMCV (RBC) [Entitic vol]98.2 eZAtfsbk28-227Jgw [facility] Physician GroupComment on above:Performed By: #### CMP, CK, HS TROP, CBC #### [place] [address] USAMean Corpuscular HGB Conc33.7 g/hPEcmxqe50.0-35.0The [facility] Physician GroupComment on above:Performed By: #### CMP, CK, HS TROP, CBC #### [facility] [address] [place] [address] USAMonocytes (Bld) [#/Vol]0.7 10*3/uLNormal0.0-0.8The [facility] Physician GroupComment on above:Performed By: #### CMP, CK, HS TROP, CBC #### [place] [address] USAMonocytes/100 WBC (Bld)6.8 %Normal.The [facility] Physician GroupComment on above:Performed By: #### CMP, CK, HS TROP, CBC #### [place] [address] USANeutrophils (Bld) [#/Vol]7.1 10*3/uLNormal1.8-7.7The [facility] Physician GroupComment on above:Performed By: #### CMP, CK, HS TROP, CBC #### [place] [address] USANeutrophils/100 WBC (Bld)72.3 %Normal.The [facility] Physician GroupComment on above:Performed By: #### CMP, CK, HS TROP, CBC #### [place] [address] USANRBC%0.0 /100{WBC}Normal0-0.5The [facility] Comment on above:Performed By: #### CMP, CK, HS TROP, CBC #### [place] [address] USAPlatelet mean volume (Bld) [Entitic vol]9.6 fLNormal 6.3-10.7The [facility] Physician GroupComment on above:Performed By: #### CMP, CK, HS TROP, CBC #### [place] [address] USAPlatelets (Bld) [#/Vol]297 10*3/lZDlgmgh259-319Rum [facility] Physician GroupComment on above:Performed By: #### CMP, CK, HS TROP, CBC #### [place] [address] USARBC (Bld) [#/Vol]4.11 10*6/uLNormal3.60-5.00The [facility] Physician GroupComment on above:Performed By: #### CMP, CK, HS TROP, CBC #### [facility] [address] [place] [address] USAWBC (Bld) [#/Vol]9.8 10*3/uLNormal3.8-11.6The [facility] Physician GroupComment on above:Performed By: #### CMP, CK, HS TROP, CBC #### [facility] [address] [place] [address] USAComprehensive Metabolic Panelon 80-47-0358Blweafh [Mass/Vol]4.7 g/dLNormal3.5-5.7The [facility] Physician GroupComment on above: Performed By: #### CMP, CK, HS TROP, CBC #### [place] [address] USAAlbumin/Globulin [Mass ratio]1.7 {ratio}NormalThe [facility] Physician GroupComment on above:Performed By: #### CMP, CK, HS TROP, CBC #### [facility] [address] [place] [address] USAALP [Catalytic activity/Vol]69 U/KMbqpoz82-905Xnj [facility] Physician GroupComment on above:Performed By: #### CMP, CK, HS TROP, CBC #### [facility] [address] [place] [address] USAALT [Catalytic activity/Vol]20 U/LNormal7-52The [facility] Physician GroupComment on above:Performed By: #### CMP, CK, HS TROP, CBC #### [facility] [address] [place] [address] USAAnion gap [Moles/Vol]13.5 mmol/LNormal6.0-15.0The [facility] Physician GroupComment on above:Performed By: #### CMP, CK, HS TROP, CBC #### [facility] [address] [place] [address] USAAST [Catalytic activity/Vol]23 U/DFboeij52-55Bmj [facility] Physician GroupComment on above:Performed By: #### CMP, CK, HS TROP, CBC #### [place] [address] USABilirubin [Mass/Vol]0.3 mg/dLNormal0.3-1.0The [facility] Physician GroupComment on above:Performed By: #### CMP, CK, HS TROP, CBC #### [place] [address] USACalcium [Mass/Vol]10.3 mg/dLNormal8.6-10.3The [facility] Physician GroupComment on above:Performed By: #### CMP, CK, HS TROP, CBC #### [place] [address] USAChloride [Moles/Vol]103 mmol/AYxjxvd82-322Eew [facility] Physician GroupComment on above:Performed By: #### CMP, CK, HS TROP, CBC #### [place] [address] USACO2 [Moles/Vol]28.8 mmol/IDlqraw16.0-31.0The [facility] Physician GroupComment on above:Performed By: #### CMP, CK, HS TROP, CBC #### [place] [address] USACreatinine [Mass/Vol]0.66 mg/dLNormal0.60-1.20The [facility] Physician GroupComment on above:Performed By: #### CMP, CK, HS TROP, CBC #### [place] [address] USAGFR/1.73 sq M.predicted MDRD (S/P/Bld) [Vol rate/Area] mL/min/{1.73_m2}NormalThe [facility] Physician GroupComment on above:Performed By: #### CMP, CK, HS TROP, CBC #### [place] [address] USAGlobulin (S) [Mass/Vol]2.8 g/dLNormalThe [facility] Physician GroupComment on above:Performed By: #### CMP, CK, HS TROP, CBC #### [facility] [address] [place] [address] USAGlucose [Mass/Vol]77 mg/uFRbyvrm25-646Gfe [facility] Physician GroupComment on above:Result Comment: Random Glucose Reference Range is dependent on time and content of last meal. Glucose of more than 200 mg/dL in a nonstressed, ambulatory subject supports the diagnosis of Diabetes Mellitus. ADA recommended reference rangePerformed By: #### CMP, CK, HS TROP, CBC #### [place] [address] USAPotassium [Moles/Vol]4.3 mmol/LNormal3.5-5.1The [facility] Physician GroupComment on above:Performed By: #### CMP, CK, HS TROP, CBC #### [place] [address] USAProtein [Mass/Vol]7.5 g/dLNormal6.0-8.5The [facility] Physician GroupComment on above:Performed By: #### CMP, CK, HS TROP, CBC #### [place] [address] USAPerformed By: #### ANTIR, ADNA, SJOGRENS, HELM, C3, HISAB, CCP, CHROMATIN, CENTROME, RA, CH50, CYNDI, [id number], JO1, B2 GLYPROT, CARDIO GMA, C4 #### [facility] ,Sodium [Moles/Vol]141 mmol/CUrhgva424-794Qmi [facility] Physician GroupComment on above:Performed By: #### CMP, CK, HS TROP, CBC #### [facility] [address] [place] [address] USAUrea nitrogen [Mass/Vol]12 mg/dLNormal7-25The [facility] Physician GroupComment on above:Performed By: #### CMP, CK, HS TROP, CBC #### [place] [address] USACreatine Kinaseon 48-52-2880NS [Catalytic activity/Vol]122 U/WZzqyjp06-060Adc [facility] Physician GroupComment on above:Result Comment: PERFORMED BY: [facility] [address] [place] [address] PATHOLOGIST COMPLAINT EVALUATION SUPERVISOR CARLOS KNAPP M.D.Performed By: #### CMP, CK, HS TROP, CBC #### [facility] [address] [place] [address] USACreatine kinase [Enzymatic activity/volume] in Serum or PlasmaOrdered By: Jacob Baker on 84-60-2344FC [Catalytic activity/Vol] Creatine kinase [Enzymatic activity/volume] in Serum or Eiguyx14-793PdkcldcilMercy Memorial HospitalCreatinine [Mass/volume] in Serum or PlasmaOrdered By: Jacob Baker on 40-04-7580Yienintpcp [Mass/Vol]Creatinine [Mass/volume] in Serum or Plasma0.60-1.20[facility] Memorial HospitalCyclic Citrulliated Pep Abon 49-32-9808Osdksn Citrulliated Pep Xb6Gntdyi7-33Hvl [facility] Physician Laird HospitalComment on above:Result Comment: Negative <20 Weak positive 20 - 39 Moderate positive 40 - 59 Strong positive >59 Performed at: - [facility] [address] [id number] Sourcing Intern: Santy Storey PhD, Phone: [phone] By: #### CMP, CK, HS TROP, CBC #### [facility] [address] [place], [place] [address] USADNA double strand Ab [Units/volume] in SerumOrdered By: Jacob Baker on 79-09-5036OIN double strand Ab Qn (S)DNA double strand Ab [Units/volume] in Serum0-9Mer[facility] Memorial HospitalComment on above: Negative <5 Equivocal 5 - 9 Positive >9Dipstick and Microscopicon 12-12-2024 Appearance (U)ClearNormalClearThe [facility] Physician Laird HospitalComment on above: Order Comment: Name Collection Type:: Clean-Voided MidstreamPerformed By: #### CMP, CK, HS TROP, CBC #### [facility] [address] [id number] USABacteria,UrineNone SeenNormalNone SeenThe Formerly [facility] Hospitallands Physician GroupComment on above:Order Comment: Name Collection Type:: Clean- Voided MidstreamPerformed By: #### CMP, CK, HS TROP, CBC #### [facility] [address] [place] [address] USABilirubin,UrineNegativeNormalNegativeThe [facility] Physician GroupComment on above:Order Comment: Name Collection Type:: Clean- Voided MidstreamPerformed By: #### CMP, CK, HS TROP, CBC #### [facility] [address] [place] [address] USAColor (U)Light-YellowNormalYellowMease [facility] Physician GroupComment on above:Order Comment: Name Collection Type:: Clean-Voided MidstreamPerformed By: #### CMP, CK, HS TROP, CBC #### [facility] [address] [place] [address] USAGlucose Ql (U)NormalNormalNormalThe [facility] Physician GroupComment on above:Order Comment: Name Collection Type:: Clean-Voided MidstreamPerformed By: #### CMP, CK, HS TROP, CBC #### [facility] [address] [place] [address] USAHyaline Casts,UrineNoneNormal0-8The [facility] Physician GroupComment on above:Order Comment: Name Collection Type:: Clean-Voided MidstreamPerformed By: #### CMP, CK, HS TROP, CBC #### [facility] [address] [place], [place] [address] USAKetones Ql (U)NegativeNormalNegativeMease [facility] Hospital Physician GroupComment on above:Order Comment: Name Collection Type:: Clean- Voided MidstreamPerformed By: #### CMP, CK, HS TROP, CBC #### [facility] [address] [place], [place] [address] USALeukocyte esterase Test strip Ql (U)NegativeNormalNegative Mease [facility] Physician GroupComment on above:Order Comment: Name Collection Type:: Clean-Voided MidstreamPerformed By: #### CMP, CK, HS TROP, CBC #### [place] [address] USAMucus,UrineRareNormalThe [facility] Physician GroupComment on above:Order Comment: Name Collection Type:: Clean-Voided MidstreamResult Comment: PERFORMED BY: [place] [address] PATHOLOGIST COMPLAINT EVALUATION SUPERVISOR CARLOS KNAPP M.D.Performed By: #### CMP, CK, HS TROP, CBC #### [place] [address] USANitrite,UrineNegativeNormalNegativeThe [facility] Physician GroupComment on above:Order Comment: Name Collection Type:: Clean-Voided MidstreamPerformed By: #### CMP, CK, HS TROP, CBC #### [place] [address] USAOccult Blood,UrineNegativeNormalNegativeThe [facility] Physician GroupComment on above:Order Comment: Name Collection Type:: Clean- Voided MidstreamPerformed By: #### CMP, CK, HS TROP, CBC #### [place] [address] USApH (U)6.5 [pH]Normal5.0-9.0The [facility] Comment on above:Order Comment: Name Collection Type:: Clean-Voided Midstream Performed By: #### CMP, CK, HS TROP, CBC #### [place] [address] USAProtein,UrineNegativeNormalNegativeThe [facility] Physician GroupComment on above:Order Comment: Name Collection Type:: Clean-Voided MidstreamPerformed By: #### CMP, CK, HS TROP, CBC #### [place] [address] USARBC,Ylfdj5-6Qlryrf3-3Ygz [facility] Physician GroupComment on above:Order Comment: Name Collection Type:: Clean-Voided MidstreamPerformed By: #### CMP, CK, HS TROP, CBC #### [place] [address] USASpecificy Cresco,Urine1.009Xpghsx9.001-1.030The [facility] Physician GroupComment on above:Order Comment: Name Collection Type:: Clean- Voided MidstreamPerformed By: #### CMP, CK, HS TROP, CBC #### [facility] [address] [place] [address] USASquamous Epithelial Cell,Psedh0-4Gpkmyw9-9Bue [facility] Physician GroupComment on above:Order Comment: Name Collection Type:: Clean- Voided MidstreamPerformed By: #### CMP, CK, HS TROP, CBC #### [facility] [address] [place] [address] USAUrobilinogen,UrineNormalNormalNormalThe [facility] Physician GroupComment on above:Order Comment: Name Collection Type:: Clean- Voided MidstreamPerformed By: #### CMP, CK, HS TROP, CBC #### [facility] [address] [place] [address] USAWBC,Theaf9-1Xlktrg2-9Kwp [facility] Physician GroupComment on above:Order Comment: Name Collection Type:: Clean-Voided MidstreamPerformed By: #### CMP, CK, HS TROP, CBC #### [facility] [address] [place] [address] USAEosinophils Auto (Bld) [#/Vol]Ordered By: Jacob Baker on 29-00-2930Mjpxwudlvij (Bld) [#/Vol]Automated eosinophil count0.0-0.45 [facility] HospitalEosinophils/100 WBC Auto (Bld)Ordered By: Jacob Baker on 12-48-7427Vymtdxezkhr/100 WBC (Bld)Automated eosinophil %. [facility] HospitalEpithelial cells.squamous [#/area] in Urine sediment by Automated countOrdered By: Jacob Baker on 81-88-3761Didsulxuig cells.squamous Auto (Urine sed) [#/Area]Epithelial cells.squamous [#/area] in Urine sediment by Automated count0-2FCleveland ClinicErythrocyte Sedimentation Rateon 17-88-7358KHW (Bld) [Velocity]19 mm/hNormal0-19The [facility] Physician GroupComment on above:Result Comment: PERFORMED BY: [place] [address] PATHOLOGIST COMPLAINT EVALUATION SUPERVISOR CARLOS KNAPP M.D.Performed By: #### CMP, CK, HS TROP, CBC #### [place] [address] USAErythrocyte distribution width Auto (RBC) [Ratio]Ordered By: Jacob Baker on 72-44-7555Trbvtzzcrrf distribution width (RBC) [Ratio] Erythrocyte distribution width [Ratio] by Automated count11.9-15.3FCleveland ClinicErythrocyte sedimentation rate by Photometric method Ordered By: Jacob Baker on 36-48-6469EPX Photometric method (Bld) [Velocity] Erythrocyte sedimentation rate by Photometric method0Mer[facility] Memorial HospitalErythrocytes [#/area] in Urine sediment by Automated countOrdered By: Jacob Baker on 51-41-5883KRA Auto (Urine sed) [#/Area]Erythrocytes [#/area] in Urine sediment by Automated count0-4FCleveland ClinicFree T4 (Free Thyroxine)on 20-47-6049Tqel T4 [Mass/Vol]0.84 ng/dLNormal 0.61-1.12The [facility] Physician GroupComment on above:Performed By: #### CMP, CK, HS TROP, CBC #### [place] [address] USAGlobulin Calc (S) [Mass/Vol]Ordered By: Jacob Baker on 89-27-4085Fmtyilnp (S) [Mass/Vol]Serum globulin measurement by calculation (mass/volume)[facility] HospitalGlucose [Mass/volume] in Serum or PlasmaOrdered By: Jacob Baker on 41-25-5812Otmlrwf [Mass/Vol]Glucose [Mass/volume] in Serum or Tgfizw99-630IudhnqmmlMercy Memorial HospitalComment on above:ADA recommended reference rangeRandom Glucose Reference Range is dependent on time and content of last meal. Glucose of more than 200 mg/dL in a nonstressed, ambulatory subject supports the diagnosisof Diabetes Mellitus. Glucose [Mass/volume] in Urine by Test stripOrdered By: Jacob Baker on 02-40-0366Wlghyxm Test strip (U) [Mass/Vol]Glucose [Mass/volume] in Urine by Test stripNormalMercy Memorial HospitalHematocrit Auto (Bld) [Volume fraction]Ordered By: Jacob Baker on 69-88-7053Kotgmbfwoa (Bld) [Volume fraction]Hematocrit [Volume Fraction] of Blood by Automated count34.0-46.4 [facility] HospitalHemoglobin Test strip Ql (U)Ordered By: Jacob Baker on 17-28-2313Nkdouqeiqu Ql (U)Hemoglobin [Presence] in Urine by Test stripNegativeMercy Memorial HospitalHemoglobin [Mass/volume] in Blood Ordered By: Jacob Baker on 55-74-3704Ycuswfkuki (Bld) [Mass/Vol]Hemoglobin [Mass/volume] in Blood11.8-15.4FCleveland ClinicHistone Antibodieson 78-00-2907Gdeimqb Antibodies1.4High0.0-0.9The [facility] Physician GroupComment on above:Result Comment: Negative <1.0 Weak Positive 1.0 - 1.5 Moderate Positive 1.6 - 2.5 Strong Positive >2.5 Performed at: - [facility] [id number] Sourcing Intern: Anne Oro MD, Phone: [phone] By: #### CMP, CK, HS TROP, CBC #### [place] [address] USAHyaline casts [#/area] in Urine sediment by Automated countOrdered By: Jacob Baker on 93-75-9395Vuvqeyz casts Auto (Urine sed) [#/Area]Hyaline casts [#/area] in Urine sediment by Automated count0-8[facility] HospitalINR in Platelet poor plasma by Coagulation assayOrdered By: Jacob Baker on 57-05-7589VIV Coag (PPP) [Relative time]INR in Platelet poor plasma by Coagulation assayMercy Memorial HospitalComment on above:INR Therapeutic Range A) Pre- and Peroperative OAT started two weeks before surgery. NOT HIP SURGERY: 1.5 - 2.5 HIP SURGERY: 2 - 3B) Primary and secondary prevention of venous THROMBOSIS: 2 - 3C) Active venous thrombosis, pulmonary embolismand prevention of recurrent venous thrombosis: 2 - 3D) Preve ntion of arterial thromboembolismincluding patients with mechanical heart valves: 3 - 4.5Immunofixation for UrineOrdered By: Jacob Baker on 12-12-2024 Interpretation Immunofixation (U) [Interp]Immunofixation for Urine.[facility] Memorial HospitalComment on above:No monoclonality detected.Performed at: [facility] [id number] Director: Santy Storey PhD, Phone: [phone], (SYMONE), Urineon 12-12-2024 Immunofixation, (SYMONE), UrineCommentNormal.The [facility] Physician GroupComment on above:Result Comment: No monoclonality detected. Performed at: [facility] [id number] Sourcing Intern: Santy Storey PhD, Phone: [phone] By: #### ANTIR, ADNA, SJOGRENS, HELM, C3, HISAB, CCP, CHROMATIN, CENTROME, RA, CH50, CYNDI, RVG13GL, JO1, B2 GLYPROT, CARDIO GMA, C4 #### [facility] ,Immunofixation,Serumon 50-23-3721Grpajopacudiaf, SerumCommentNormal.The [facility] Physician Laird HospitalComment on above:Result Comment: No monoclonality detected.Performed By: #### CMP, CK, HS TROP, CBC #### [facility] [address] [place] [address] USAImmunoglobulin A, Rvcau791 mg/yKBzvmoe10-773Zte [facility] Physician Laird HospitalComment on above:Performed By: #### CMP, CK, HS TROP, CBC #### [facility] [address] [address] USAImmunoglobulin G935 mg/dMQorsrx373-5220Bpg [facility] Physician GroupComment on above:Performed By: #### CMP, CK, HS TROP, CBC #### [facility] [address] [address] USAImmunoglobulin M, Faqsx331 mg/kPYfpibi79-126Mrz [facility] Physician GroupComment on above:Result Comment: Performed at: - [facility] [address] [id number] Sourcing Intern: Santy Storey PhD, Phone: [phone] By: #### CMP, CK, HS TROP, CBC #### [facility] [address] [address] USAJO-1 Antibodyon 11-56-0611NH-1 Antibody<0.3Rzkjkc0.0-0.9 The [facility] Physician GroupComment on above:Performed By: #### ANTIR, ADNA, SJOGRENS, HELM, C3, HISAB, CCP, CHROMATIN, CENTROME, RA, CH50, CYNDI, NRQ53FY, JO1, B2 GLYPROT, CARDIO GMA, C4 #### [facility] ,Ketones Test strip Ql (U)Ordered By: Jacob Baker on 92-44-5170Oowsiqx Ql (U) Ketones [Presence] in Urine by Test stripNegSelect Medical Cleveland Clinic Rehabilitation Hospital, AvonLeukocyte esterase [Presence] in Urine by Test stripOrdered By: Jacob Baker on 64-06-4234Igfpmwunt esterase Test strip Ql (U)Leukocyte esterase [Presence] in Urine by Test stripNegSelect Medical [facility], [place]on Leukocytes [#/area] in Urine sediment by Automated countOrdered By: Jacob Baker on 37-47-2972HKP Auto (Urine sed) [#/Area]Leukocytes [#/area] in Urine sediment by Automated count0-4FCleveland ClinicLeukocytes [#/volume] corrected for nucleated erythrocytes in Blood by Automated coun Ordered By: Jacob Baker on 57-65-5317JGM corrected for nucl RBC Auto (Bld) [#/Vol]Leukocytes [#/volume] corrected for nucleated erythrocytes in Blood by Automated coun3.8-11.6FCleveland ClinicLupus Anticoagulant Comp on 23-32-4600Vazxku Prothrombin Time (dPt)28.2Siqspr7.0-47.6The [facility] Physician GroupComment on above:Performed By: #### CMP, CK, HS TROP, CBC #### [place] [address] USAdPT Confirm Ratio1.33Mcmyhp1.00-1.34The [facility]son Physician GroupComment on above:Performed By: #### CMP, CK, HS TROP, CBC #### [place] [address] USADRVVT Lupus29.3Tcniho2.0-47.0The [facility] Comment on above:Performed By: #### CMP, CK, HS TROP, CBC #### [place] [address] USAInterpretationComment:Normal.The [facility] Comment on above:Result Comment: No lupus anticoagulant was detected. Performed at: [facility] [id number] Sourcing Intern: Anne Oro MD, Phone: [phone] PERFORMED BY: [place] [address] PATHOLOGIST COMPLAINT EVALUATION SUPERVISOR CARLOS KNAPP M.D.Performed By: #### CMP, CK, HS TROP, CBC #### [place] [address] USAPTT-LA26.9Sqhykb2.0-43.5The [facility] Comment on above:Performed By: #### CMP, CK, HS TROP, CBC #### [place] [address] USAThrombin Time17.2Ocebxm0.0-23.0The [facility] Physician GroupComment on above:Performed By: #### CMP, CK, HS TROP, CBC #### [place] [address] USALupus anticoagulant [Interpretation] in Platelet poor plasmaOrdered By: Jacob Baker on 17-72-2555Ffmwi anticoagulant (PPP) [Interp] Lupus anticoagulant [Interpretation] in Platelet poor plasma.[facility] HospitalComment on above:No lupus anticoagulant was detected.Performed at: [facility] [address], [place] [id number] Director: Anne Oro MD, Phone: [phone] Auto (Bld) [#/Vol]Ordered By: Jacob Baker on 46-39-8782Nzzqxiufcqg (Bld) [#/Vol]Lymphocytes [#/volume] in Blood by Automated count1.00-4.8[facility] HospitalLymphocytes/100 WBC Auto (Bld)Ordered By: Jacob Baker on 83-85-5094Opzjsbdwpyo/100 WBC (Bld) Lymphocytes/100 leukocytes in Blood by Automated count.[facility] Memorial HospitalMCH Auto (RBC) [Entitic mass]Ordered By: Jacob Baker on 17-94-7465PHB (RBC) [Entitic mass]MCH [Entitic mass] by Automated count24.7-34.3 [facility] HospitalMCHC Auto (RBC) [Mass/Vol]Ordered By: Jacob Baker on 47-01-9683NSBS (RBC) [Mass/Vol]MCHC [Mass/volume] by Automated count 32.0-35.0[facility] HospitalMCV Auto (RBC) [Entitic vol]Ordered By: Jacob Baker on 41-97-3366NKN (RBC) [Entitic vol]MCV [Entitic volume] by Automated itlgj64-763OqogxlsbjMercy Memorial HospitalMonocytes Auto (Bld) [#/Vol]Ordered By: Jacob Baker on 41-09-7687Giuqcabah (Bld) [#/Vol]Automated blood monocyte count0.0-0.8[facility] HospitalMonocytes/100 WBC Auto (Bld)Ordered By: Jacob Baker on 84-52-2736Ciwvjnjgh/100 WBC (Bld) Automated monocyte %.[facility] HospitalMucus [Presence] in Urine by AutomatedOrdered By: Jacob Baker on 92-58-2165Zzalt Auto Ql (U)Mucus [Presence] in Urine by AutomatedMercy Memorial HospitalMyoglobinon 46-30-4251Omqxakijt [Mass/Vol]ng/fNDur89-23Vht [facility] Physician GroupComment on above:Result Comment: Performed at: [address] [id number] Sourcing Intern: Santy Storey PhD, Phone: [phone] By: #### CMP, CK, HS TROP, CBC #### [facility] [address] [place] [address] USANeutrophils Auto (Bld) [#/Vol]Ordered By: Jacob Baker on 36-76-7858Dkcyvecctkr (Bld) [#/Vol]Neutrophils [#/volume] in Blood by Automated count1.8-7.7FCleveland ClinicNeutrophils/100 WBC Auto (Bld)Ordered By: Jacob Baker on 75-24-8730Wcypnvctnak/100 WBC (Bld)Automated neutrophil %.[facility] HospitalNitrite Test strip Ql (U)Ordered By: Jacob Baker on 67-03-9732Qdzqqxn Ql (U)Nitrite [Presence] in Urine by Test stripNegativeMercy Memorial HospitalNo Panel InformationOrdered By: Jacob Baker on 22-75-1260Xgqrpxwja GFR (CKD-EPI)> 60.0 mL/MinMercy Memorial HospitalPharmacy Creatinine Clearance (ChemN/AFCleveland ClinicProtein Electrophoresis M-SpikeNot observed g/dLNot Observed [facility] HospitalProtein Electrophoresis NoteComment.[facility] HospitalComment on above:Protein electrophoresis scan will follow via computer,mail, or sprayer hand delivery.Performed at: [address] [id number] Director: Santy Storey PhD, Phone: [phone] Random Prot Electrophor NoteComment.[facility] HospitalComment on above:Protein electrophoresis scan will follow via computer,mail, or sprayer hand delivery.Nucleated erythrocytes [Presence] in Blood by Automated countOrdered By: Jacob Baker on 85-01-8774Guhwbliwn RBC Auto Ql (Bld)Nucleated erythrocytes [Presence] in Blood by Automated count0-0.5FCleveland ClinicPlasma thrombin timeOrdered By: Jacob Baker on 02-37-8254Tknzwbna time Coag (PPP) [Time]TT plas0.0-23.0[facility] HospitalPlatelet mean volume Auto (Bld) [Entitic vol]Ordered By: Jacob Baker on 60-90-2510Okihlnnv mean volume (Bld) [Entitic vol]Platelet mean volume [Entitic volume] in Blood by Automated count6.3-10.7FCleveland ClinicPlatelet poor plasma ratio of lupus anticoagulant-sensitive activated partial thromboOrdered By: Jacob Baker on 57-81-8141jAAE.lupus sensitive.excess phospholipid actual/normal Coag (PPP) [Relative time]Platelet poor plasma ratio of lupus anticoagulant-sensitive activated partial thrombo 0.0-47.6FCleveland ClinicPlatelets Auto (Bld) [#/Vol]Ordered By: Jacob Baker on 85-19-8833Qjhoqyybb (Bld) [#/Vol]Platelets [#/volume] in Blood by Automated vrpeh944-014FumdrxqbiMercy Memorial HospitalPotassium [Moles/volume] in Serum or PlasmaOrdered By: Jacob Baker on 12-12-2024 Potassium [Moles/Vol]Potassium [Moles/volume] in Serum or Plasma3.5-5.1FCleveland ClinicProtein Electro, Random Urineon 57-40-8550Gxlfuea, Urine 21.6 %Normal.The [facility] Physician GroupComment on above:Performed By: #### ANTIR, ADNA, SJOGRENS, HELM, C3, HISAB, CCP, CHROMATIN, CENTROME, RA, CH50, CYNDI, [id number], JO1, B2 GLYPROT, CARDIO GMA, C4 #### [facility] ,Tuofe-5-Gtepopwf, Urine7.6 %Normal.The [facility] Physician GroupComment on above:Performed By: #### ANTIR, ADNA, SJOGRENS, HELM, C3, HISAB, CCP, CHROMATIN, CENTROME, RA, CH50, CYNDI, [id number], JO1, B2 GLYPROT, CARDIO GMA, C4 #### [facility] ,Zyiyj-9-Uycuegbj, Urine12.8 %Normal.The [facility] Physician GroupComment on above:Performed By: #### ANTIR, ADNA, SJOGRENS, HELM, C3, HISAB, CCP, CHROMATIN, CENTROME, RA, CH50, CYNDI, [id number], JO1, B2 GLYPROT, CARDIO GMA, C4 #### [facility] ,Beta Globulin, Urine40.6 %Normal.The [facility] Physician GroupComment on above: Performed By: #### ANTIR, ADNA, SJOGRENS, HELM, C3, HISAB, CCP, CHROMATIN, CENTROME, RA, CH50, CYNDI, [id number], JO1, B2 GLYPROT, CARDIO GMA, C4 #### [facility] ,Gamma Globulin, Urine17.5 %Normal.The [facility] Physician GroupComment on above:Performed By: #### ANTIR, ADNA, SJOGRENS, HELM, C3, HISAB, CCP, CHROMATIN, CENTROME, RA, CH50, CYNDI, [id number], JO1, B2 GLYPROT, CARDIO GMA, C4 #### [facility] ,M-Vincent %Not ObservedNormalNot ObservedThe [facility]son Physician GroupComment on above:Performed By: #### ANTIR, ADNA, SJOGRENS, HELM, C3, HISAB, CCP, CHROMATIN, CENTROME, RA, CH50, CYNDI, [id number], JO1, B2 GLYPROT, CARDIO GMA, C4 #### [facility] ,Please Note:CommentNormal.The [facility]son Physician GroupComment on above:Result Comment: Protein electrophoresis scan will follow via computer, mail, or sprayer hand delivery. PERFORMED BY: [address] [address] PATHOLOGIST COMPLAINT EVALUATION SUPERVISOR CARLOS KNAPP M.D.Performed By: #### ANTIR, ADNA, SJOGRENS, HELM, C3, HISAB, CCP, CHROMATIN, CENTROME, RA, CH50, CYNDI, [id number], JO1, B2 GLYPROT, CARDIO GMA, C4 #### [facility] ,Protein (U) [Mass/Vol]mg/dLNormalNot Estab.The [facility] Physician GroupComment on above:Result Comment: Verified by repeat analysisPerformed By: #### ANTIR, ADNA, SJOGRENS, HELM, C3, HISAB, CCP, CHROMATIN, CENTROME, RA, CH50, CYNDI, [id number], JO1, B2 GLYPROT, CARDIO GMA, C4 #### [facility] ,Protein Electrophoresis, Serumon 03-00-2303Vztscgx [Mass/Vol]4.1 g/dLNormal 2.9-4.4The [facility] Physician GroupComment on above:Performed By: #### ANTIR, ADNA, SJOGRENS, HELM, C3, HISAB, CCP, CHROMATIN, CENTROME, RA, CH50, CYNDI, [id number], JO1, B2 GLYPROT, CARDIO GMA, C4 #### [facility] ,Albumin/Globulin [Mass ratio]1.2 {ratio}Normal0.7-1.7The [facility]son Physician GroupComment on above:Performed By: #### ANTIR, ADNA, SJOGRENS, HELM, C3, HISAB, CCP, CHROMATIN, CENTROME, RA, CH50, CYNDI, [id number], JO1, B2 GLYPROT, CARDIO GMA, C4 #### [facility] ,Afyrx-7-Qmyklhnj9.3 g/dLNormal0.0-0.4The [facility] Physician GroupComment on above:Performed By: #### ANTIR, ADNA, SJOGRENS, HELM, C3, HISAB, CCP, CHROMATIN, CENTROME, RA, CH50, CYNDI, [id number], JO1, B2 GLYPROT, CARDIO GMA, C4 #### [facility] ,Vqukv-6-Mxfyglyd7.9 g/dLNormal0.4-1.0The [facility] Physician GroupComment on above:Performed By: #### ANTIR, ADNA, SJOGRENS, HELM, C3, HISAB, CCP, CHROMATIN, CENTROME, RA, CH50, CYNDI, [id number], JO1, B2 GLYPROT, CARDIO GMA, C4 #### [facility] ,Beta Globulin1.2 g/dLNormal0.7-1.3The [facility] Physician GroupComment on above:Performed By: #### ANTIR, ADNA, SJOGRENS, HELM, C3, HISAB, CCP, CHROMATIN, CENTROME, RA, CH50, CYNDI, [id number], JO1, B2 GLYPROT, CARDIO GMA, C4 #### [facility] ,Gamma Globulin1.0 g/dLNormal0.4-1.8The [facility] Physician GroupComment on above:Performed By: #### ANTIR, ADNA, SJOGRENS, HELM, C3, HISAB, CCP, CHROMATIN, CENTROME, RA, CH50, CYNDI, [id number], JO1, B2 GLYPROT, CARDIO GMA, C4 #### [facility] ,Globulin (S) [Mass/Vol]3.4 g/dLNormal2.2-3.9The [facility] Comment on above:Performed By: #### ANTIR, ADNA, SJOGRENS, HELM, C3, HISAB, CCP, CHROMATIN, CENTROME, RA, CH50, CYNDI, [id number], JO1, B2 GLYPROT, CARDIO GMA, C4 #### [facility] ,M-SpikeNot ObservedNormalNot ObservedThe [facility]son Physician GroupComment on above:Performed By: #### ANTIR, ADNA, SJOGRENS, HELM, C3, HISAB, CCP, CHROMATIN, CENTROME, RA, CH50, CYNDI, [id number], JO1, B2 GLYPROT, CARDIO GMA, C4 #### [facility] ,SPE-NoteCommentNormal.The [facility] Physician GroupComment on above:Result Comment: Protein electrophoresis scan will follow via computer, mail, or sprayer hand delivery. Performed at: [address] [id number] Sourcing Intern: Santy Storey PhD, Phone: [phone] By: #### ANTIR, ADNA, SJOGRENS, HELM, C3, HISAB, CCP, CHROMATIN, CENTROME, RA, CH50, CYNDI, [id number], JO1, B2 GLYPROT, CARDIO GMA, C4 #### [facility] ,Protein Test strip (U) [Mass/Vol]Ordered By: Jacob Baker on 12-12-2024 Protein (U) [Mass/Vol]Protein [Mass/volume] in Urine by Test stripNegative [facility] HospitalProtein [Mass/volume] in Serum or PlasmaOrdered By: Jacob Baker on 10-47-1090Obqtwgl [Mass/Vol]Protein [Mass/volume] in Serum or Plasma6.0-8.5FCleveland ClinicProthrombin time (PT) Ordered By: Jacob Baker on 27-43-3870VE Coag (PPP) [Time]Prothrombin time (PT)9.0-12.9[facility] HospitalComment on above:A hematocrit value greater than 55% may lead to inaccurate results in coagulation testing. Patientshaving hematocrit values >55% require a special collection tube for coagulation studies. Please contact the laboratory at [phone] for redraw instructions.RBC Auto (Bld) [#/Vol]Ordered By: Jacob Baker on 87-78-7370JGH (Bld) [#/Vol]Erythrocytes [#/volume] in Blood by Automated count3.60-5.00 [facility] HospitalRPR w/rfx to Quant TP Abson 56-84-7665UFF, Rfx Quant RPRNon-ReactiveNormalNon ReactiveThe [facility]son Physician GroupComment on above:Result Comment: Performed at: - [facility] [id number] Sourcing Intern: Santy Storey PhD, Phone: [phone] PERFORMED BY: [place] [address] PATHOLOGIST COMPLAINT EVALUATION SUPERVISOR CARLOS KNAPP M.D.Performed By: #### ANTIR, ADNA, SJOGRENS, HELM, C3, HISAB, CCP, CHROMATIN, CENTROME, RA, CH50, CYNDI, [id number], JO1, B2 GLYPROT, CARDIO GMA, C4 #### [facility] ,Rheumatoid Factoron 58-22-3545Vjqbmkhrtg Factor<10.0Normal<14.0The [facility] Physician GroupComment on above:Result Comment: Performed at: - [facility] [id number] [place], [place] [id number] Sourcing Intern: Santy Storey PhD, Phone: [phone] By: #### ANTIR, ADNA, SJOGRENS, HELM, C3, HISAB, CCP, CHROMATIN, CENTROME, RA, CH50, CYNDI, [id number], JO1, B2 GLYPROT, CARDIO GMA, C4 #### [facility] ,Ribonucleoprotein antibody assayOrdered By: Jacob Baker on 58-12-6296ADY Antibody<0.2 AI0.0-0.9[facility] Hospitalcl-70 antibody assay Ordered By: Jacob Baker on 65-92-7567Zzw-70 (Scleroderma) Antibody<0.2 AI 0.0-0.9[facility] Hospitalcleroderma 70 Antibodieson 12-12-2024 Scleroderma 70 Antibodies<0.5Bzndqq1.0-0.9The [facility] Physician GroupComment on above:Performed By: #### CMP, CK, HS TROP, CBC #### [facility] [address] [place] [address] USAScreening dilute Kuldip's viper venom time (DRVVT) with reflex to confirmatory testOrdered By: Jacob Baker on 56-49-1849jTSUB Coag (PPP) [Time]Screening dilute Kulidp's viper venom time (DRVVT) with reflex to confirmatory test0.0-47.0[facility] Rut[facility] Hospitalcreening lupus anticoagulant-sensitive activated partial thromboplastin time (aPTT)Ordered By: Jacob Baker on 08-47-2707fUTS.lupus sensitive Coag (PPP) [Time]Screening lupus anticoagulant-sensitive activated partial thromboplastin time (aPTT) 0.0-43.5FAshtabula General Hospitalerum Es-1 extractable nuclear antibody assay (units/volume)Ordered By: Jacob Baker on 57-97-5939Pd-1 extractable nuclear Ab Qn (S)Serum Es-1 extractable nuclear antibody assay (units/volume) 0.0-0.9[facility] Hospitalerum RPR testOrdered By: Jacob Baker on 14-42-8828Hqjvyl Ab RPR Ql (S)Reagin Ab [Presence] in Serum by RPRNon ReactiveMercy Memorial HospitalComment on above:Performed at: [facility] [employer] [id number] Director: Santy Storey PhD, Phone: [phone] Sjogrens syndrome-A extractable nuclear antibody assay (units/volume)Ordered By: Jacob Olivia on 40-47-4836Hvhazkzl syndrome-A extractable nuclear Ab Qn (S)Serum Sjogrens syndrome-A extractable nuclear antibody assay (units/volume)0.0-0.9[facility] Serum Sjogrens syndrome-B extractable nuclear antibody assay (units/volume) Ordered By: Jacob Baker on 71-21-3099Ptjmhnyp syndrome-B extractable nuclear Ab Qn (S)Serum Sjogrens syndrome-B extractable nuclear antibody assay (units/volume)0.0-0.9[facility] Rut[facility] Hospitalerum Helm extractable nuclear antigen (HERIBERTO) antibody assay (units/volume)Ordered By: Jacob Baker on 69-27-7905Nkqtn extractable nuclear Ab Qn (S)Serum Helm extractable nuclear antigen (HERIBERTO) antibody assay (units/volume)0.0-0.9[facility] Rut[facility] Hospitalerum aldolase measurementOrdered By: Jacob Baker on 19-77-4255Gcnjshtp 4.2 U/LNormal3.3-10.3FCleveland ClinicComment on above:Performed at: [facility] [employer] [id number] Director: Santy Storey PhD, Phone: [phone] Comment: Performed at: [address] [id number] Sourcing Intern: Santy Storey PhD, Phone: [phone] PERFORMED BY: [facility] [address] [place] [address] PATHOLOGIST COMPLAINT EVALUATION SUPERVISOR CARLOS KNAPP M.D.Performed By: #### CMP, CK, HS TROP, CBC #### [facility] [address] [place] [address] USASerum beta 2 glycoprotein 1 IgM antibody assay (units/volume)Ordered By: Jacob Baker on 44-21-1720Qlvg 2 glycoprotein 1 IgM Qn (S)Beta 2 glycoprotein 1 IgM Ab [Units/volume] in SerumMercy Memorial HospitalComment on above:Result Units: GPI IgM unitsThe reference interval reflects a 3SD or 99th percentileinterval, which is thought to represent a potentiallyclinically significant result in accordance with theInternational Consensus Statement on the classificationcriteria for definitive antiphospholipid syndrome (APS).JThromb Haem 2006;4:295-306.Performed at: [facility] [id number] Director: Santy Storey PhD, Phone: [phone] cardiolipin IgA antibody assay by immunoassay (units/volume)Ordered By: Jacob Baker on 13-09-2686Yembjwwkzeq IgA IA Qn (S)Cardiolipin IgA Ab [Units/volume] in Serum by Immunoassay0 [facility] Memorial HospitalComment on above:Negative: <12 Indeterminate: 12 - 20 Low-Med Positive: >20 - 80 High Positive: >80Serum cardiolipin IgG antibody assay by immunoassay (units/volume)Ordered By: Jacob Baker on 36-20-5779Kbgonijflvp IgG IA Qn (S)Cardiolipin IgG Ab [Units/volume] in Serum by Immunoassay0Mer[facility] Memorial HospitalComment on above:Negative: <15 Indeterminate: 15 - 20 Low-Med Positive: >20 - 80 High Positive: >80Serum cardiolipin IgM antibody assay by immunoassay (units/volume)Ordered By: Jacob Baker on 62-52-8689Ugbfuuekwxm IgM IA Qn (S)Cardiolipin IgM Ab [Units/volume] in Serum by Immunoassay0[facility] Memorial HospitalComment on above: Negative: <13 Indeterminate: 13 - 20 Low-Med Positive: >20 - 80 High Positive: >80Serum centromere protein B antibody assay (units/volume)Ordered By: Jacob Baker on 75-31-8315Ojurdczbwi protein B Ab Qn (S)Serum centromere protein B antibody assay (units/volume)0.0-0.9[facility] Memorial HospitalComment on above:Performed at: [facility] [employer] [id number] Director: Santy Storey PhD, Phone: [phone] globulin measurement (mass/volume)Ordered By: Jacob Baker on 68-81-0470Hyfwhgxd (S) [Mass/Vol] Serum globulin measurement (mass/volume)2.2-3.9[facility] Serum histone IgG antibody assay by immunoassay (units/volume)Ordered By: Jacob Baker on 62-06-6588Cspkslm IgG IA Qn (S)Serum histone IgG antibody assay by immunoassay (units/volume)High0.0-0.9[facility] Comment on above:Negative <1.0 Weak Positive 1.0 - 1.5 Moderate Positive 1.6 - 2.5 Strong Positive >2.5Performed at: - [employer] [id number] Director: Anne Onofre, Phone: [phone] immunofixation electrophoresisOrdered By: Jacob Baker on 25-79-0959Xmqzq ImmunofixationComment.[facility] Memorial HospitalComment on above:No monoclonality detected.Serum nuclear antibody titerOrdered By: Jacob Baker on 60-55-3596[place]claw Ab (S) [Titer]Serum nuclear antibody titer.[facility] Memorial HospitalComment on above:Negative <1:80 Borderline 1:80 Positive >1:80ICAP nomenclature: AC-0For more information about Hep-2 cell patterns useANApatterns.org, the official website for theInternational Consensus on Anti nuclear Antibody (CYNDI)Patterns (ICAP).Performed at: [facility] [id number] Director: Santy Storey PhD, Phone: [phone] or plasma IgA measurement (mass/volume)Ordered By: Jacob Baker on 26-98-7529AsO [Mass/Vol]IgA [Mass/volume] in Serum or Lqw[address] [place], [place] [address]erum or plasma IgG measurement (mass/volume) Ordered By: Jacob Baker on 52-33-1880KcB [Mass/Vol]IgG [Mass/volume] in Serum or Cxegzt691-5656RswnhdkadMary Rutan Hospitalerum or plasma IgM measurement (mass/volume)Ordered By: Jacob Baker on 97-67-8184BuP [Mass/Vol] IgM [Mass/volume] in Serum or Tyzgjt13-268LkktfuvjmMercy Memorial Hospital Comment on above:Performed at: [facility] [id number] Director: Santy Storey PhD, Phone: [phone] or plasma albumin measurement (mass/volume)Ordered By: Jacob Baker on 11-44-3118Lwlqdyw [Mass/Vol]Albumin [Mass/volume] in Serum or Plasma2.9-4.4FAshtabula General Hospitalerum or plasma albumin/globulin mass ratioOrdered By: Jacob Baker on 06-12-1642Kufkxvy/Globulin [Mass ratio]Serum or plasma albumin/globulin mass ratio0.7-1.7FAshtabula General Hospitalerum or plasma alpha 1 globulin measurement by electrophoresis (mass/volume)Ordered By: Jacob Baker on 92-89-2930Cbdqp 1 globulin Elph [Mass/Vol]Serum or plasma alpha 1 globulin measurement by electrophoresis (mass/volume)0.0-0.4FAshtabula General Hospitalerum or plasma alpha 2 globulin measurement by electrophoresis (mass/volume)Ordered By: Jacob Baker on 09-69-7205Idjaz 2 globulin Elph [Mass/Vol]Serum or plasma alpha 2 globulin measurement by electrophoresis (mass/volume)0.4-1.0[facility] Rut[facility] Hospitalerum or plasma anion gap determinationOrdered By: Jacob Baker on 23-96-1875Anduj gap [Moles/Vol]Serum or plasma anion gap determination6.0-15.0[facility] Hospitalerum or plasma beta globulin measurement by electrophoresis (mass/volume)Ordered By: Jacob Baker on 17-43-4859Wuld globulin Elph [Mass/Vol]Serum or plasma beta globulin measurement by electrophoresis (mass/volume)0.7-1.3FAshtabula General Hospitalerum or plasma chromatin antibody assay (units/volume)Ordered By: Jacob Baker on 75-42-5877Pbhsqkddx Ab QnSerum or plasma chromatin antibody assay (units/volume)0.0-0.9[facility] Hospitalerum or plasma complement C3 measurement (mass/volume) Ordered By: Jacob Baker on 84-80-6304Lonyjbmlmu C3 [Mass/Vol]Serum or plasma complement C3 measurement (mass/volume)82-167[facility] Serum or plasma complement C4 measurement (mass/volume)Ordered By: Jacob Baker on 60-88-3343Ammqkarvge C4 [Mass/Vol]Serum or plasma complement C4 measurement (mass/volume)12-38[facility] Rut[facility] Hospitalerum or plasma cyclic adenosine monophosphate measurement (moles/volume)Ordered By: Jacob Baker on 67-72-0770Tesuyrfou monophosphate.cyclic [Moles/Vol]Serum or plasma cyclic adenosine monophosphate measurement (moles/volume)0-19[facility] HospitalComment on above:Negative <20 Weak positive 20 - 39 Moderate positive 40 - 59 Strong positive >59Performed at:[employer] [place], [place] [id number] Director: Santy Storey PhD, Phone: [phone] Serum or plasma gamma globulin measurement by electrophoresis (mass/volume) Ordered By: Jacob Baker on 52-30-8037Rxxvt globulin Elph [Mass/Vol]Serum or plasma gamma globulin measurement by electrophoresis (mass/volume)0.4-1.8 [facility] Hospitalerum or plasma myoglobin measurement (mass/volume)Ordered By: Jacob Baker on 68-57-4814Qrobgkaku [Mass/Vol]Serum or plasma myoglobin measurement (mass/volume)Upq82-62BusppggnkMercy Memorial HospitalComment on above:Performed at: [employer] [place], [place] [id number] Director: Santy Storey PhD, Phone: [phone] or plasma rheumatoid factor measurement (units/volume)Ordered By: Jacob Baker on 57-01-9969Nmuluntaym factor QnSerum or plasma rheumatoid factor measurement (units/volume)<14.0[facility] HospitalComment on above:Performed at: [employer] [address] [place], [place] [id number] Director: Santy Storey PhD, Phone: [phone] Anti-SSA/SSBon 42-06-2579EX- A/Ro Sjogrens Antibody<0.5Njcoro5.0-0.9The [facility]son Physician GroupComment on above:Performed By: #### ANTIR, ADNA, SJOGRENS, HELM, C3, HISAB, CCP, CHROMATIN, CENTROME, RA, CH50, CYNDI, DWH55QC, JO1, B2 GLYPROT, CARDIO GMA, C4 #### [facility] ,SS-B/La Sjogrens Antibody<0.9Hewtox0.0-0.9The [facility] Anson Physician GroupComment on above:Performed By: #### ANTIR, ADNA, SJOGRENS, HELM, C3, HISAB, CCP, CHROMATIN, CENTROME, RA, CH50, CYNDI, ARM07FE, JO1, B2 GLYPROT, CARDIO GMA, C4 #### [facility] ,Sodium [Moles/volume] in Serum or PlasmaOrdered By: Jacob Baker on 86-18-2228Znthyc [Moles/Vol]Sodium [Moles/volume] in Serum or Qawucn367-037 [facility] Rutan Hospitalpecific gravity Test strip (U) [Rel density] Ordered By: Jacob Baker on 66-41-5076Osaewneu gravity (U) [Rel density] Specific gravity of Urine by Test strip1.001-1.030[facility] Memorial HospitalThyroid Stimulating Hormoneon 03-08-5172BYP Qn0.91 m[IU]/LNormal0.45-5.33 [facility] Physician Laird HospitalComment on above:Result Comment: PERFORMED BY: [place] [address] PATHOLOGIST COMPLAINT EVALUATION SUPERVISOR CARLOS KNAPP M.D.Performed By: #### CMP, CK, HS TROP, CBC #### [address] [address] USAThyrotropin [Units/volume] in Serum or PlasmaOrdered By: Jacob Baker on 95-47-6648ZKL QnThyrotropin [Units/volume] in Serum or Plasma 0.45-5.33[facility] Memorial HospitalThyroxine (T4) free [Mass/volume] in Serum or PlasmaOrdered By: Jacob Baker on 13-71-6856Pbcc T4 [Mass/Vol] Thyroxine (T4) free [Mass/volume] in Serum or Plasma0.61-1.12[facility] HospitalTotal hemolytic complement CH50 assayOrdered By: Jacob Baker on 14-40-2613Lpdtx Complement (CH50)>60 U/mL>41[facility] Comment on above:Age Male Female 1 - 30 days Not Estab. Not Estab. 31 days - 6 months >32 >20 7 months - 17 years >39 >39 >17 years >41 >41 NOTE: The adult ( >17 years ) reference intervalrange is used to flag abnormals on this report. If the patient is 17 years old or younger, use the table above to determine out of range values.Performed at: [employer] [id number] Director: Santy Storey PhD, Phone: [phone] nitrogen [Mass/volume] in Serum or PlasmaOrdered By: Jacob Baker on 62-27-7151Xbvk nitrogen [Mass/Vol]Urea nitrogen [Mass/volume] in Serum or Plasma 04-07[facility] HospitalUrine alpha 1 globulin/total protein by electrophoresisOrdered By: Jacob Baker on 56-46-1490Ajsbj 1 globulin Elph (U) [Mass fraction]Urine alpha 1 globulin/total protein by electrophoresis. [facility] Memorial HospitalUrine alpha 2 globulin/total protein ratio by electrophoresisOrdered By: Jacob Baker on 82-68-0576Zucat 2 globulin Elph (U) [Mass fraction]Urine alpha 2 globulin/total protein ratio by electrophoresis. [facility] Memorial HospitalUrine beta globulin measurement by electrophoresis (mass/volume)Ordered By: Jacob Baker on 73-86-1666Dsyi globulin Elph (U) [Mass/Vol]Urine beta globulin measurement by electrophoresis (mass/volume).[facility] HospitalUrine protein measurement (mass/volume)Ordered By: Jacob Baker on 16-08-4007Frldohs (U) [Mass/Vol] Protein [Mass/volume] in UrineNot Estab.[facility] HospitalComment on above:Verified by repeat analysisUrobilinogen Test strip (U) [Mass/Vol] Ordered By: Jacob Baker on 25-84-6470Tlfpthqhnzic (U) [Mass/Vol]Urobilinogen [Mass/volume] in Urine by Test stripNormalMercy Memorial HospitalWBC Auto (Bld) [#/Vol]Ordered By: Jacob Baker on 60-65-9759SCL (Bld) [#/Vol] Leukocytes [#/volume] in Blood by Automated count3.8-11.6FCleveland ClinicaPTT in Platelet poor plasma by Coagulation assayOrdered By: Jacob Baker on 61-72-8646sYMX Coag (PPP) [Time]Activated partial thromboplastin time (aPTT) in platelet poor plasma by coagulation a25.1-36.5 [facility] HospitalComment on above:A hematocrit value greater than 55% may lead to inaccurate results in coagulation testing. Patientshaving hematocrit values >55% require a special collection tube for coagulation studies. Please contact the laboratory at [phone] for redraw instructions. aPTT.lupus sensitive/aPTT.lupus sensitive W excess phospholipid (screen to confirm raOrdered By: Jacob Baker on 36-84-4217qYVB.lupus sensitive/aPTT.lupus sensitive W excess phospholipid Coag (PPP) [Ratio] aPTT.lupus sensitive/aPTT.lupus sensitive W excess phospholipid (screen to confirm ra0.00-1.34[facility] HospitalpH Test strip (U)Ordered By: Jacob Baker on 12-92-9417bW (U)pH of Urine by Test strip5.0-9.0[facility] HospitalUS Abdomen, Limitedon 41-83-2675MZ Abdomen, LimitedExam Date/Time: 11/29/2024 07:20 EDT Reason for Exam: [...] Julio Snyder MD Transcribed by: MARCO Technologist: [facility] CenterMain OR Intraoperative Recordon 44-80-6181Ewkl OR Intraoperative RecordMain OR Intraoperative Record IntraOp Document Type FTPM Summary Primary Physician: Babar Mayers DO Finalized Date/Time: 11/28/24 10:21:25 Pt. Name: SHAZIA CHOU Isreal Montgomery/Sex: 1990 Female Med Rec #: [id number] Physician: Babar Mayers DO Financial #: [id number] Pt. Type: P Room/Bed: / Admit/Disch: 11/28/24 [...] Nolvia Lehman Role Performed Surgeon - Primary Band Aid Machine Operator - Primary Scrub - Primary Time In 11/28/24 10:16:00 11/28/24 10:16:00 11/28/24 10:16:00 Time Out 11/28/24 10:22:00 11/28/24 10:22:00 11/28/24 10:22:00 Procedure TRANSFORAMINAL EPIDURAL TRANSFORAMINAL EPIDURAL TRANSFORAMINAL EPIDURAL STEROID INJECTIO(Left) STEROID INJECTIO(Left) STEROID INJECTIO(Left) Comments Last Modified By: Markos ROLLE, Lulu Burrows RN, Lulu Mercer RN 11/28/24 10:21:12 11/28/24 10:21:12 11/28/24 10:21:12 Entry 4 Case Attendee Sofy Mix Role Performed Contact Center Specialist Time In 11/28/24 10:16:00 Time Out 11/28/24 [...] X-ray Applicable) PreOp Antibiotic No Time Out Markos ROLLE, Lulu Bellamy, Given Participants Clark ROLLE, Nolvia Lehman, Talib SNOWDEN, Babar Gramajo, Sofy Mix Time Out Complete 11/28/24 10:16:00 [...] and tissue Entry 1 Skin Integrity Intact, [place], Warm, & Skin Abnormality No Dry Outcomes [...] Strap, Pillow Large Under (more content not included)...[facility]Main OR Preoperative Recordon 61-46-2897Nrfy OR Preoperative RecordMain OR Preoperative Record Holding Area Document Type FTPM Summary Primary Physician: Babar Mayers DO Finalized Date/Time: 11/28/24 09:16:26 Pt. Name: SHAZIA CHOU Valentina/Sex: 1990 Female Med Rec #: [id number] Physician: Babar Mayers DO Financial #: [id number] Pt. Type: P Room/Bed: / Admit/Disch: 11/28/24 [...] or her perioperative plan of care The patient'sright to privacy is maintained Surgery Checklist FTPM [...] RN 11/28/24 09:04 Gabrielle Sultana RN 11/28/24 09:16[facility]I Sp[facility] Lumbar w/o Contraston 14-98-1240LPD Spine Lumbar w/o ContrastExam Date/Time: 11/11/2024 20:11 EST Reason for Exam: [...] Roberto You MD Transcribed by: MARCO Technologist: CARLISelect Medical [facility], BeachwoodNonvisit Note - PTon 22-10-5856Srygulgh Note - PTNonvisit Note - PT -per and her insurance will not cover.[facility] Nonvisit Note - PTon 67-97-5015Wivhxfmi Note - PTNonvisit Note - PT Shazia called to cancel her remaining appointments. She said per request of her doctor and insurance will not cover itNoOhioHealth Nelsonville Health CenterNonvisit Note - PTon 73-68-5389Orophjaq Note - PTNonvisit Note - PT - pt is having issues with her insurance and wants to figure it out [facility] HospitalXR Spine Lumbosacral Minimum 4 Viewson 68-39-4065YF Spine Lumbosacral Minimum 4 ViewsExam Date/Time: 11/02/2024 07:56 EST Reason for Exam: [...] by: Francisco Pena Transcribed by: MARCO Technologist: [facility] CenterXR Femur Min 2 Views Lefton 97-74-0306MU Femur Min 2 Views LeftExam Date/Time: 11/02/2024 07:56 EST Reason for Exam: [...] Julio Snyder MD Transcribed by: MARCO Technologist: [facility] CenterNonvisit Note - PTon 67-41-4426Tcgvodau Note - PTNonvisit Note - PT Chart reviewed with eval prepped for scheduled eval. [facility] Clinical Summaryon 03-05-8187QN Clinical SummaryED Clinical Summary [place] [address] ED Clinical Summary Person Information Name: SHAZIA CHOU [facility] Age: 33 Years : 1990 Sex: Female Language: Mexican PCP: KURT BALBUENA CNP Marital Status: MRN: [...] 10/18/2024 08:40:02 10/18/2024 08:40:02 10/18/2024 08:40:02 ADDRESS: [address] [place] [phone] PHYS DOC NOTES: MEDICAL INFORMATION: Prescriptions Given: New Medications [facility]/pharmacy #[id number], [address] [place], [place] [id number], [phone] methocarbamol (Robaxin-750 oral tablet) 2 Tablets By [...] Follow up: With: Address: When: KURT BALBUENA [address] [place] [phone] Business (1) In 3 days 10/21/2024 DIAGNOSIS: Chronic painNormalFisher Mcminn Medical CenterED Note-Physicianon 87-92-4521QF Note-PhysicianED Note-Physician Basic Information Time Seen: Beto Shea PA-C 10/18/2024 08:20 Chief Complaint Pt reports lower back pain and left leg pain. Pt reports she has seen multiple doctors and no one can figure out what is oging on. Pain since . Has seen PCP, [place] [facility], Neuro. EMG and CTA of head/neck [...] supposed to get outpatient EMG and MRI studies,but has not yet scheduled these. She recently [...] Once PRN Pain, STAT, Start date 10/18/24 8:31:00EST, 10/18/24 8:31:00 EST methocarbamol, 1,500 mg = 2 tab(s), Oral, TID, X 3 day(s), # 18 tab(s), Refills(s) 0, Pharmacy: [facility]/pharmacy #[id number], 170, cm, 10/18/24 8:12:00 EST, Height/Length Dosing, 90, kg, 10/18/24 8:12:00 EST, Weight Dosing predniSONE, 60 mg = 3 tab(s), Oral, Daily, X 7 day(s), # 21 tab(s), Refills(s) 0, Pharmacy: [facility]/pharmacy #[id number], 170, cm, 10/18/24 8:12:00 EST, Height/Length [...] BALBUENA In 3 days 10/21/2024 EST [address] [place] [address] Business (1) Additional Instructions: Patient [...] made to ensure accuracy, however, inadvertently computerized geography instructor mistakes may be present. Appropriate healthcare PPE [...] Alcohol abuse Procedure/Surgical H (more content not included)...[facility] Health SystemComment on above:Result Comment: Electronically Signed By: Beto Shea PA-C\.br\Date and Time Signed: 10/18/2508:04 EST\.br\Electronically Co-Signed By: Jose Correia M.D.\.br\Date and Time Co-Signed: 10/18/24 09:07 ESTED Patient Summaryon [id number] Patient SummaryED Patient Summary [address] [address] Patient Discharge Instructions Person Information Name: SHAZIA CHOU Age: 33 Years Arrival Date: 10/18/2024 08:04:01 Discharge Diagnosis: Chronic pain Primary Care Physician: KURT BALBUENA CNP Provider Information Primary Provider: Jose Correia M.D. Advanced Mine Environmental Engineer:Beto Shea PA-C The exam and treatment you received in the Emergency Department were for an urgent problem and are not intended as complete care. It is important that you follow up with a doctor, nurse practitioner,or physician???s fast food assistant restaurant manager for ongoing care. If your symptoms become worse or you do not improve asexpected and you are unable to reach your usual health care provider, you should return to the Emergency Department. We are available 24 hours a day. SHAZIA CHOU has been given the following list of patient education materials, prescriptions and follow-up instructions: Follow-up Instructions: With: Address: When: KURT BALBUENA [address] [place] [phone] Business (1) In 3 days 10/21/2024 In the event that this physician does not participate in your insurance network, please consult with your insurance company to find a nearby participating provider. Patient Education Materials: Chronic Pain, Adult A MESSAGE TO ALL PATIENTS REGARDING OPIOIDS PRESCRIPTION OPIOIDS: WHAT YOU NEED TO KNOW Prescription opioids can be used to help relieve liriypad-no-nzmshi pain and are often prescribed following a [...] your health care professio (more content not included)...[facility] Ambulatory Visit Summaryon 39-32-2707Mkshcelaty Visit SummaryAmbulatory Visit Summary SHAZIA CHOU :1990 Visit Date:10/14/2024 [...] AM EST With: KURT BALBUENA CNP Where: [address] [address]- Medications What How Much When Why Instructions [...] TABLET BY MOUTH EVERY DAY FOR 30 DAYSContact prescribing physician if questions or concerns Unchanged lamotrigine (lamotrigine 25 mg Tab) TAKE 3 TABLETS BY MOUTH EVERY DAY Contact prescribingphysician if questions or concerns Unchanged multivitamin with minerals (Multi-Day Plus Minerals) By Mouth Every day Contact prescribing physician if questions or concerns Unchanged ondansetron (Zofran 8 mg Tab) 1 Tablets By Mouth 2 times a day Nausea Contact prescribingphysician if questions or concerns Unchanged trazodone 100 Milligram By Mouth Once a day (at bedtime) Contact prescribing physician ifquestions or concerns What How Much When Why [...] you for choosing us for your care. [facility] Medicine Office/Clinic Noteon 73-98-8703Sfdmhx Medicine Office/Clinic NoteFanantucket cottage hospital Medicine Office/Clinic Note Chief Complaint Pain follow up HPI Staff Pt presents today for 2wk follow up to chronic pain. Treated w/gabapentin 100mg. Pt denies relief from pain with med. Brain MRI? Has not scheduled yet due to rescheduling on pt's end. Rheumatoid factor ordered last encounter. NEG (done @ [facility]) Referred to [facility]. Did see, but waiting for MRI brain results. PHQ9: 14 Does see psychiatrist. Concerned she may have Raynaud's. 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 History of Present Illness 33 year old [...] weather. She states she has a f/u tommy ointment with [facility] on 10/20/2024. She reports left-sided [...] referral to rheumatology as the MD at [facility] suggested she may have Raynaud's phenomenon. Patient [...] TID, # 90 cap(s), Refills(s) 0, Pharmacy: [facility]/pharmacy #[id number], 170, cm, 10/14/24 9:02:00 EST, Height/Length Dosing, 90.2, kg, 10/14/24 9:02:00 EST, Weight Dosing 2. Raynaud phenomenon (I73.00: Raynaud's syndrome without gangrene) Or[place]: [facility] External Ambulatory Referral 3. Alcohol abuse, uncomplicated [...] medical support in addressing this problem. Your BMIand weight management will be followed at subsequent [...] medical support in addressing this problem. Your BMIand weight management will be followed at subsequent [...] BALBUENA CNP, FAM Within 6 weeks [address] [place] [address] [facility] (1) Additional Instructions: Chronic pain syndrome Patient Education Binge-Drinking Information, Adult Problem List/Past Medical History Ongoing Alcohol abuse, uncomplicated Bipolar disorder BMI 31.0-31.9,adult Borderline personality disorder Chronic pain syndrome History of bypass of stomach Hypertension Iron deficiency anemia Left breast mass Muscle weakness-general Obesity (BMI 30-39.9) Overweight (BMI 25.0 (more content not included)...Memorial Health SystemComment on above:Result Comment: Electronically Signed By: KURT BALBUENA CNP\.benito\Date and Time Signed: 10/14/24 09:39 ESTPre-Visit Planningon [id number]-Visit PlanningPre-Visit Planning From: Lina Chirinos To: KURT BALBUENA CNP; Sent: 10/13/2024 14:16:22 EST Subject: Pre-Visit Planning Due Date/Time: 10/13/2024 14:16:00 EST Caller Name: SHAZIA CHOU; Caller Number: H , Su Antonio Lanier. During a pre-visit [...] Pt is currently using Naltrexone. 06/09/2023 [facility] [place] Note: HPI- The patient states that [...] drug abuse. This was an error. 09/16/2024 [facility] Records (page 11): Office Visit dated 06/16/2024- HPI- Pt. is seeing Darrell for . Pt.is an alcoholic and wants to get things taken care of before she goes into detox. 09/30/2024 Office Visit Note: HPI- She reports she has been taking acetaminophen and ibuprofen OTC for the pain but it is not touching it so she has went back to drinking alcohol 3- 24 ounces cans ofsomething similar to [place] each day for the past 7 days. She states she just can not take the pain and all the providers she has been too have come up with no reason she is having generalized pain. Based on your medical judgment, can you please clarify which of the following condition is present?I can update the Chronic Problem List with [...] feel free to contact me at extension [phone]. Lina Chirinos LPN Clinical Completions Manager [place] [id number] Extension: [phone] [email or web address] From: KURT BALBUENA CNP To: Lina Chirinos; Sent: 10/14/2024 09:24:40 EST Subject: RE: Pre-Visit Planning Caller Name: SHAZIA CHOU; Caller Number: , M Dx of alcohol abuse, uncomplicated added to the visit dx and chronic list- The following in in the patient's plan- Monitor for s/sx of alcohol dependence Recheck Vitamin B, folate, TIBC, Ferritin, Magnesium, phosphate, & zinc annually Encouraged to limit alcohol consumption to 4-6 ounces when she drinks Encouraged to continue with counseling f/u in 4-[address] John Medical CenterAmbulatory Visit Summaryon 05-63-2276Vaoznlxkkm Visit SummaryAmbulatory Visit Summary SHAZIA CHOU :1990 Visit Date:09/30/2024 [...] AM EST With: KURT BALBUENA CNP Where: [facility] Medicine [place] [phone]- Medications What How Much When Why Instructions New gabapentin (gabapentin 100 mg Cap) 1 Capsules By Mouth 3 times a day Chronic pain syndrome Pickup at [facility]/pharmacy #[id number] Unchanged acetaminophen (Tylenol) 325 Milligram By Mouth [...] Once a day (at bedtime) Pharmacy Information [facility]/pharmacy #[id number]: [address] [place], [place] [id number] [phone] Allergies Abilify (suicidal) BuSpar (palpitations) Coconut Oil [...] you for choosing us for your care. [facility] Medicine Office/Clinic Noteon 21-99-1596Fnnity Medicine Office/Clinic NoteCommunity [facility] Medicine Office/Clinic Note HPI Staff Shazia is [...] previous pcp in July, to the [facility] on 09/05/2024 and again on 09/11/2024. She was seen by a provider at [facility] on 09/05/2024 and additional laboratory testing was completed. She is awaiting an MRI ordered by neurology to be completed on Thursday. She reports she has been taking acetaminophen and ibuprofen OTC for the pain but it is not touchingit so she has went back to drinking [...] syndrome) Reviewed notes and laboratory results from [facility] Awaiting results from the Rheumatoid factor & [facility] Awaiting consult information form [facility] MRI scheduled for Thursday f/u in 2 weeks Ordered: gabapentin, 100 mg = 1 cap(s), Oral, TID, # 90 cap(s), Refills(s) 0, Pharmacy: [facility]/pharmacy #[id number], 170, cm, 09/30/24 9:53:00 EST, [...] medical support in addressing this problem. Your BMIand weight management will be followed at subsequent [...] medical support in addressing this problem. Your BMIand weight management will be followed at subsequent [...] 325 mg Tab gabapen (more content not included)...NormalFisher Baltimore Va Medical CenterComment on above:Result Comment: Electronically Signed By: KURT BALBUENA CNP\.br\Date and Time Signed: 09/30/24 10:29 Martha Longoria 55-93-2190Rhjnedt [Mass/Vol]68.4 microgram/wSSuii05.9-57.3Fisher Baltimore Va Medical CenterComment on above:Result Comment: Reference intervals for vitamin A determined from [facility] internal studies. Individuals with vitamin A less than 20 ug/dL are considered vitamin A deficient and those with serum concentrations less than 10 ug/dL are considered severely deficient. This test was developed and its performance characteristics determined by [employer]. It has not been cleared or approved by the Food and Drug Administration. Performed at: [address] [id number] MD Shorty Leosformed By: #### [id number] ####[facility] [address] [place], [place] [address]IDI 2 Extremitieson 35-79-2307Uctyjz EMG of the left upper and lower extremityAtrium Health KannapolisFanantucket cottage hospital Medicine Office/Clinic Noteon 10-96-9274Dyaqme Medicine Office/Clinic NoteFanantucket cottage hospital Medicine Office/Clinic Note HPI Staff Shazia is [...] report she has an appointment today at [facility] for an EMG. She is not sure [...] medical support in addressing this problem. Your BMIand weight management will be followed at subsequent [...] medical support in addressing this problem. Your BMIand weight management will be followed at subsequent [...] 04/08/2021 Recorded influenza virus vaccine, inactivated 07/09/2020 RecordedMemorial Health SystemComment on above:Result Comment: Electronically Signed By: KURT BALBUENA CNP\.br\Date and Time Signed: 09/27/24 12:39 ESTNVC 11-12 Nerveson 17-96-4166Ybqcyn EMG of the left upper and lower extremityNOMS HealthcareNOMS HealthcareALL MYOGLOBINon 58-23-1465Pydrhlmon [Mass/Vol]33 ng/mL9 - 82 ng/mLNOMS HealthcareALL THYROID STIM HORMONEon 81-24-6621ULX Qn1.268 m[IU]/LNOMS HealthcareNo Panel Informationon 52-17-0059GVCTUTTMZRJCI HealthcareAmbulatory Visit Summaryon 95-46-5380Ejcfmtburo Visit SummaryAmbulatory Visit Summary CASSIALINDA MALDONADODION Bach :1990 Visit Date:09/20/2024 Ambulatory Visit Instructions Your [...] you for choosing us for your care. Memorial Health SystemCHEMISTRYOrdered By: SYSTEM SYSTEM on 980463-wfkbzfqhreqmvh D3 [Mass/Vol]43.7 ng/rQNggeev59.0 - 100.0 ng/mLRemisol ChemCobalamin (Vitamin B12) [Mass/Vol]626 pg/eCNcntbu54 - 1500 pg/mLRemisol ChemFerritin [Mass/Vol]10 ng/mLLow11 - 307 ng/mLRemisol ChemFolate [Mass/Vol]ng/mLNormal>=6.7ng/mLRemisol ChemIron [Mass/Vol]124 ug/dXQjdhag89 - 153 mcg/dLRemisol ChemIron binding capacity [Mass/Vol]455 ug/uTJwuw389 - 400 mcg/dLRemisol ChemMagnesium [Mass/Vol]2.2 mg/dLNormal1.3 - 2.4 mg/dLRemisol Chem Transferrin [Mass/Vol]325 mg/fNEqppdt858 - 370 mg/dLRemisol ChemFamily Medicine Office/Clinic Noteon 49-86-2675Aoxbxv Medicine Office/Clinic NoteFami Medicine Office/Clinic Note HPI Staff Shazia is a 33 year old female presenting with Neurology referral was put in 09/16/24 She was able to speak with a neurologist who recommended an ER trip. At her ER visit she was told her symptoms are possibly due to malabsorption. Pt reports she had gastric bypass surgery in December. She is requesting labs be ordered for a full Vitamin panel. ER visit [facility] - malnutrition Gave magnesium pill 1 pill [...] She reports she went to [facility] and it was recommended that she be [...] Folate Level Iron Level Lab Specimen Collect 19210 Magnesium Level TIBC Calculated Vitamin A Level [...] medical support in addressing this problem. Your BMIand weight management will be followed at subsequent [...] medical support in addressing this problem. Your BMIand weight management will be followed at subsequent [...] Endoscopic plantar fasciotomy (06/02/ (more content not included)...NormalUniversity Hospitals St. John Medical CenterComment on above:Result Comment: Electronically Signed By: KURT BALBUENA CNP\.br\Date and Time Signed: 09/20/24 11:15 ESTFerritinon 76-46-9130Mthbmnex [Mass/Vol]10 ng/fKCea36-[address] John Medical CenterComment on above:Performed By: #### [id number] #### [facility] [address] [place], [place] [address]Gxwbayjr 84-95-9829Dehaye [Mass/Vol]ng/mLNormal>=6.7FCorey HospitalComment on above:Performed By: #### [id number] #### [facility] [address], [place] [address]Dtcfiw 03-76-3194Dajg [Mass/Vol]124 microgram/tFNhmdrg11-[address] John Medical CenterComment on above:Performed By: #### [id number] #### [facility] [address] [place], [place] [address]Gcpdfliyhnz 20-72-4688Pknuozfvs [Mass/Vol]2.2 mg/dLNormal 1.3-2.4FCorey HospitalComment on above:Performed By: #### [id number] #### [facility] [address], [place] [address]PLBO Calculatedon 66-60-2130Xdtd binding capacity [Mass/Vol]455 microgram/tLTiem652-207LrkpphUniversity Hospitals St. John Medical CenterComment on above:Performed By: #### [id number] #### [facility] [address], [place] [address]Uaigpnqkvnc [Mass/Vol]325 mg/tVVxmrwl034-161GfukprUniversity Hospitals St. John Medical CenterComment on above:Performed By: #### [id number] #### [facility] [address] [place], [place] [address]Tib B12on 48-76-0420Qnzcozjtm (Vitamin B12) [Mass/Vol]626 pg/mL Imcguf18-0709TwukriUniversity Hospitals St. John Medical CenterComment on above:Performed By: #### [id number] #### [facility] [address], [place] [address]Ocjvfzi D 25 Hydroxyon 454631-obfamnpjhikuyb D3 [Mass/Vol]43.7 ng/aDGuuhob16.0-100.0[facility] St. John Medical CenterComment on above: Performed By: #### [id number] #### [facility] [address], [place] [address]Rqwuioz aminotransferase [Enzymatic activity/volume] in Serum or PlasmaOrdered By: Sailaja Anderson on 89-63-4802JTS [Catalytic activity/Vol] Alanine aminotransferase [Enzymatic activity/volume] in Serum or Plasma7-52 [facility] HospitalAlbumin [Mass/volume] in Serum or Plasma by Bromocresol green (BCG) dye binding methoOrdered By: Sailaja Anderson on 74-80-2031Intemin BCG dye [Mass/Vol]Albumin [Mass/volume] in Serum or Plasma by Bromocresol green (BCG) dye binding metho3.5-5.7FCleveland ClinicAlkaline phosphatase [Enzymatic activity/volume] in Serum or PlasmaOrdered By: Sailaja Anderson on 25-83-7130YTY [Catalytic activity/Vol]Alkaline phosphatase [Enzymatic activity/volume] in Serum or Mtvlwz96-558MgucfkfswMercy Memorial HospitalAmphetamine Screen Ql (U)Ordered By: Sailaja Anderson on 95-54-9329Fhrmbbpzdupg Ql (U)Amphetamines screenNegativeMercy Memorial HospitalAppearance of UrineOrdered By: Sailaja Anderson on 09-15-2024 Appearance (U)Urine appearanceCleMercer County Community HospitalAspartate aminotransferase [Enzymatic activity/volume] in Serum or PlasmaOrdered By: Sailaja Anderson on 02-59-7339IVH [Catalytic activity/Vol]Aspartate aminotransferase [Enzymatic activity/volume] in Serum or Sbnsdi38-16YifktryudMercy Memorial HospitalBacteria [Presence] in Urine by AutomatedOrdered By: Sailaja Anderson on 91-22-9638Mpmoytoo Auto Ql (U)Bacteria [Presence] in Urine by AutomatedNone SeenMercy Memorial HospitalBarbiturates [Presence] in Urine by Screen methodOrdered By: Sailaja Anderson on 31-90-9987Jezvuodvmleg Screen Ql (U)Barbiturates [Presence] in Urine by Screen methodNegSelect Medical Cleveland Clinic Rehabilitation Hospital, AvonBasophils Auto (Bld) [#/Vol]Ordered By: Sailaja Anderson on 60-84-5259Nxjkcfvkv (Bld) [#/Vol]Automated basophil count0.0-0.2FCleveland ClinicBasophils/100 WBC Auto (Bld)Ordered By: Sailaja Anderson on 36-71-3448Mfsyhjugb/100 WBC (Bld)Automated basophil %.Mercy Memorial HospitalBenzodiazepines Screen Ql (U)Ordered By: Sailaja Anderson on 15-63-9186Lyvthziygxzxokr Ql (U)Benzodiazepines [Presence] in Urine by Screen methodNegSelect Medical Cleveland Clinic Rehabilitation Hospital, AvonBenzoylecgonine [Presence] in Urine by Screen methodOrdered By: Sailaja Anderson on 47-20-8558Ealisncwzqnbshq Screen Ql (U)Benzoylecgonine [Presence] in Urine by Screen methodNegative Mercy Memorial HospitalBilirubin Test strip Ql (U)Ordered By: Sailaja Anderson on 33-09-4955Hnimsiudp Ql (U)Bilirubin.total [Presence] in Urine by Test stripNegativeMercy Memorial HospitalBilirubin.total [Mass/volume] in Serum or PlasmaOrdered By: Sailaja Anderson on 98-31-7831Mvzuthrjb [Mass/Vol] Bilirubin.total [Mass/volume] in Serum or Plasma0.3-1.0Mercy Memorial HospitalCT angio headon 89-54-7472ZT angio [facility] [place] [address] CT Scan Report Signed Patient: Shazia Chou MR#: [id number] : 1990 Acct:[id number] Age/Sex: 33 / F ADM Date: 09/15/24 Loc: ER Room: Type: [facility] ER Attending Dr: Copies to: Sailaja Anderson APRN Ordering Provider: Sailaja Anderson APRN Date of Service: 09/15/24 CT/CT angio head: weakness ([id number]) CT/CT angio neck: weakness ([id number]) CT/CT head/brain wo con: weakness CT head/brain [...] Wiley Shetty M.D.09/15/2024 3:56 PM Dictation Location: [place] [address] Transcribed By: [facility] 09/15/24 1556 Dictated By: Wiley Shetty II, MD 09/15/24 1546 Signed By: 09/15/24 1556[facility] Physician GroupCalcium [Mass/volume] in Serum or PlasmaOrdered By: Sailaja Anderson on 04-67-5687Cujdaeu [Mass/Vol]Calcium [Mass/volume] in Serum or Plasma8.6-10.3FCleveland Clinic Cannabinoids [Presence] in Urine by Screen methodOrdered By: Sailaja Anderson on 35-39-3122Wummzptddrye Screen Ql (U)Cannabinoids [Presence] in Urine by Screen methodNegativeMercy Memorial HospitalComment on above:These are unconfirmed results and should not be used for legal purposes. Drug Cut-Off Concentration: AMPH 1000 ng/mL OPAL 200 ng/mL AURELIANO 200 ng/mL COCM 300 ng/mL OP 300 ng/mL PCP 25 ng/mL THC 20 ng/mLCarbon dioxide, total [Moles/volume] in Serum or PlasmaOrdered By: Sailaja Anderson on 60-82-3959JM2 [Moles/Vol]Carbon dioxide, total [Moles/volume] in Serum or Gqjwlq41.0-31.0Mercy Memorial HospitalChloride [Moles/volume] in Serum or PlasmaOrdered By: Sailaja Dominion Hospitaljacqueline on 68-91-0406Zqmpnrrh [Moles/Vol]Chloride [Moles/volume] in Serum or Eyzzbj91-750JywgdpbcyMercy Memorial HospitalColor Auto (U)Ordered By: Sailaja Anderson on 61-73-2760Pzrvy (U)Color of Urine by AutoYellowMercy Memorial HospitalComplete Blood Count Auto Diffon 88-91-0011Zpqogeqll (Bld) [#/Vol] 0.1 10*3/uLNormal0.0-0.2The [facility] Physician GroupComment on above:Result Comment: PERFORMED BY: [place] [address] PATHOLOGIST COMPLAINT EVALUATION SUPERVISOR CARLOS KNAPP M.D.Performed By: #### CMP, CK, HS TROP, CBC #### [facility] [address] [place] [address] USABasophils/100 WBC (Bld)0.7 %Normal.The [facility] Physician GroupComment on above:Performed By: #### CMP, CK, HS TROP, CBC #### [facility] [address] [place] [id number] USAEosinophils (Bld) [#/Vol]0.2 10*3/uLNormal0.0-0.45The [facility] Physician GroupComment on above:Performed By: #### CMP, CK, HS TROP, CBC #### [place] [address] USAEosinophils/100 WBC (Bld)2.4 %Normal.The [facility] Physician GroupComment on above:Performed By: #### CMP, CK, HS TROP, CBC #### [place] [address] USAErythrocyte distribution width (RBC) [Ratio]16.9 %High 11.9-15.3The [facility] Physician GroupComment on above:Performed By: #### CMP, CK, HS TROP, CBC #### [place] [address] USAHematocrit (Bld) [Volume fraction]35.6 %Gezcsj38.0-46.4The [facility] Physician GroupComment on above:Performed By: #### CMP, CK, HS TROP, CBC #### [place] [address] USAHemoglobin (Bld) [Mass/Vol]12.1 g/vXMdbwhm01.8-15.4The [facility] Physician GroupComment on above:Performed By: #### CMP, CK, HS TROP, CBC #### [place] [address] USALymphocytes (Bld) [#/Vol]2.3 10*3/uLNormal1.00-4.8The [facility] Physician GroupComment on above:Performed By: #### CMP, CK, HS TROP, CBC #### [place] [address] USALymphocytes/100 WBC (Bld)26.3 %Normal.The [facility] Physician GroupComment on above:Performed By: #### CMP, CK, HS TROP, CBC #### [place] [address] USAMCH (RBC) [Entitic mass]32.5 zjUlqckk73.7-34.3The [facility] Physician GroupComment on above:Performed By: #### CMP, CK, HS TROP, CBC #### [address] [place] [address] USAMCV (RBC) [Entitic vol]96.0 zWBbbjjn05-778Ycx [facility] Physician GroupComment on above:Performed By: #### CMP, CK, HS TROP, CBC #### [place] [address] USAMean Corpuscular HGB Conc33.9 g/tKSfjbmt91.0-35.0The [facility] Physician GroupComment on above:Performed By: #### CMP, CK, HS TROP, CBC #### [place] [address] USAMonocytes (Bld) [#/Vol]0.7 10*3/uLNormal0.0-0.8The [facility] Physician GroupComment on above:Performed By: #### CMP, CK, HS TROP, CBC #### [place] [address] USAMonocytes/100 WBC (Bld)17.55 %Normal0.00-20.00The [facility] Physician GroupComment on above:Performed By: #### CMP, CK, HS TROP, CBC #### [place] [address] USAMonocytes/100 WBC (Bld)7.8 %Normal.The [facility] Physician GroupComment on above:Performed By: #### CMP, CK, HS TROP, CBC #### [place] [address] USANeutrophils (Bld) [#/Vol]5.4 10*3/uLNormal1.8-7.7The [facility] Physician GroupComment on above:Performed By: #### CMP, CK, HS TROP, CBC #### [place] [address] USANeutrophils/100 WBC (Bld)62.8 %Normal.The [facility] Physician GroupComment on above:Performed By: #### CMP, CK, HS TROP, CBC #### [place] [address] USANRBC%0.1 /100{WBC}Normal0-0.5The [facility] Comment on above:Performed By: #### CMP, CK, HS TROP, CBC #### [place] [address] USAPlatelet mean volume (Bld) [Entitic vol]9.2 fLNormal 6.3-10.7The [facility] Physician GroupComment on above:Performed By: #### CMP, CK, HS TROP, CBC #### [place] [address] USAPlatelets (Bld) [#/Vol]292 10*3/fHOxrzzz663-984Cyt [facility] Physician GroupComment on above:Performed By: #### CMP, CK, HS TROP, CBC #### [place] [address] USARBC (Bld) [#/Vol]3.71 10*6/uLNormal3.60-5.00The [facility] Physician GroupComment on above:Performed By: #### CMP, CK, HS TROP, CBC #### [place] [address] USAWBC (Bld) [#/Vol]8.6 10*3/uLNormal3.8-11.6The [facility] Physician GroupComment on above:Performed By: #### CMP, CK, HS TROP, CBC #### [place] [address] USAComprehensive Metabolic Panelon 39-57-1475Puaqogb [Mass/Vol]3.8 g/dLNormal3.5-5.7The [facility] Physician GroupComment on above: Performed By: #### ANTIR, ADNA, SJOGRENS, HELM, C3, HISAB, CCP, CHROMATIN, CENTROME, RA, CH50, [facility], [id number], JO1, B2 GLYPROT, CARDIO GMA, C4 #### [facility] ,Albumin/Globulin [Mass ratio]1.5 {ratio}NormalThe [facility] Physician [facility] Comment on above:Performed By: #### ANTIR, ADNA, SJOGRENS, HELM, C3, HISAB, CCP, CHROMATIN, CENTROME, RA, CH50, CYNDI, [id number], JO1, B2 GLYPROT, CARDIO GMA, C4 #### [facility] ,ALP [Catalytic activity/Vol]53 U/EXtlbzf81-884Goc [facility] Group Comment on above:Performed By: #### ANTIR, ADNA, SJOGRENS, HELM, C3, HISAB, CCP, CHROMATIN, CENTROME, RA, CH50, CYNDI, [id number], JO1, B2 GLYPROT, CARDIO GMA, C4 #### [facility] ,ALT [Catalytic activity/Vol]15 U/LNormal7-52The [facility] Comment on above:Performed By: #### ANTIR, ADNA, SJOGRENS, HELM, C3, HISAB, CCP, CHROMATIN, CENTROME, RA, CH50, CYNDI, [id number], JO1, B2 GLYPROT, CARDIO GMA, C4 #### [facility] ,Anion gap [Moles/Vol]8.3 mmol/LNormal6.0-15.0The [facility] Comment on above:Performed By: #### ANTIR, ADNA, SJOGRENS, HELM, C3, HISAB, CCP, CHROMATIN, CENTROME, RA, CH50, CYNDI, [id number], JO1, B2 GLYPROT, CARDIO GMA, C4 #### [facility] ,AST [Catalytic activity/Vol]16 U/ITthgvr50-94Hwu [facility] Comment on above:Performed By: #### ANTIR, ADNA, SJOGRENS, HELM, C3, HISAB, CCP, CHROMATIN, CENTROME, RA, CH50, CYNDI, [id number], JO1, B2 GLYPROT, CARDIO GMA, C4 #### [facility] ,Bilirubin [Mass/Vol]0.3 mg/dLNormal0.3-1.0The [facility] Physician GroupComment on above:Performed By: #### ANTIR, ADNA, SJOGRENS, HELM, C3, HISAB, CCP, CHROMATIN, CENTROME, RA, CH50, CYNDI, [id number], JO1, B2 GLYPROT, CARDIO GMA, C4 #### [facility] ,Calcium [Mass/Vol]9.0 mg/dLNormal8.6-10.3The [facility] Physician GroupComment on above:Performed By: #### ANTIR, ADNA, SJOGRENS, HELM, C3, HISAB, CCP, CHROMATIN, CENTROME, RA, CH50, CYNDI, [id number], JO1, B2 GLYPROT, CARDIO GMA, C4 #### [facility] ,Chloride [Moles/Vol]107 mmol/XPsvumr08-592Gii [facility] Physician GroupComment on above:Performed By: #### ANTIR, ADNA, SJOGRENS, HELM, C3, HISAB, CCP, CHROMATIN, CENTROME, RA, CH50, CYNDI, [id number], JO1, B2 GLYPROT, CARDIO GMA, C4 #### [facility] ,CO2 [Moles/Vol]26.2 mmol/GHxopbq14.0-31.0The [facility] Physician GroupComment on above:Performed By: #### ANTIR, ADNA, SJOGRENS, HELM, C3, HISAB, CCP, CHROMATIN, CENTROME, RA, CH50, CYNDI, [id number], JO1, B2 GLYPROT, CARDIO GMA, C4 #### [facility] ,Creatinine [Mass/Vol]0.57 mg/dLLow0.60-1.20The [facility] Physician GroupComment on above:Performed By: #### ANTIR, ADNA, SJOGRENS, HELM, C3, HISAB, CCP, CHROMATIN, CENTROME, RA, CH50, CYNDI, [id number], JO1, B2 GLYPROT, CARDIO GMA, C4 #### [facility] ,Creatinine Clr Calc Nwtwlweu220.80NormalThe [facility] Physician GroupComment on above:Performed By: #### ANTIR, ADNA, SJOGRENS, HELM, C3, HISAB, CCP, CHROMATIN, CENTROME, RA, CH50, CYNDI, [id number], JO1, B2 GLYPROT, CARDIO GMA, C4 #### [facility] ,GFR/1.73 sq M.predicted MDRD (S/P/Bld) [Vol rate/Area]mL/min/{1.73_m2}NormalThe [facility] Physician GroupComment on above:Performed By: #### ANTIR, ADNA, SJOGRENS, HELM, C3, HISAB, CCP, CHROMATIN, CENTROME, RA, CH50, CYNDI, [id number], JO1, B2 GLYPROT, CARDIO GMA, C4 #### [facility] ,Globulin (S) [Mass/Vol]2.6 g/dLNormalThe [facility] Physician GroupComment on above:Performed By: #### ANTIR, ADNA, SJOGRENS, HELM, C3, HISAB, CCP, CHROMATIN, CENTROME, RA, CH50, CYNDI, [id number], JO1, B2 GLYPROT, CARDIO GMA, C4 #### [facility] ,Glucose [Mass/Vol]87 mg/pOPwfnfd37-942Bob [facility] [facility]son Physician GroupComment on above:Result Comment: Random Glucose Reference Range is dependent on time and content of last meal. Glucose of more than 200 mg/dL in a nonstressed, ambulatory subject supports the diagnosis of Diabetes Mellitus. ADA recommended reference rangePerformed By: #### ANTIR, ADNA, SJOGRENS, HELM, C3, HISAB, CCP, CHROMATIN, CENTROME, RA, CH50, CYNDI, [id number], JO1, B2 GLYPROT, CARDIO GMA, C4 #### [facility] ,Potassium [Moles/Vol]3.5 mmol/LNormal3.5-5.1[facility] Comment on above:Performed By: #### ANTIR, ADNA, SJOGRENS, HELM, C3, HISAB, CCP, CHROMATIN, CENTROME, RA, CH50, CYNDI, [id number], JO1, B2 GLYPROT, CARDIO GMA, C4 #### [facility] ,Protein [Mass/Vol]6.4 g/dLNormal6.4-8.9The [facility] Physician GroupComment on above:Performed By: #### ANTIR, ADNA, SJOGRENS, HELM, C3, HISAB, CCP, CHROMATIN, CENTROME, RA, CH50, CYNDI, [id number], JO1, B2 GLYPROT, CARDIO GMA, C4 #### [facility] ,Sodium [Moles/Vol]138 mmol/SEwuggi723-936A[facility] Physician GroupComment on above:Performed By: #### ANTIR, ADNA, SJOGRENS, HELM, C3, HISAB, CCP, CHROMATIN, CENTROME, RA, CH50, CYNDI, [id number], JO1, B2 GLYPROT, CARDIO GMA, C4 #### [facility] ,Urea nitrogen [Mass/Vol]6 mg/dLLow7-25The [facility]ician GroupComment on above:Performed By: #### ANTIR, ADNA, SJOGRENS, HELM, C3, HISAB, CCP, CHROMATIN, CENTROME, RA, CH50, CYNDI, [id number], JO1, B2 GLYPROT, CARDIO GMA, C4 #### [facility] ,Creatinine [Mass/volume] in Serum or PlasmaOrdered By: Sailaja Anderson on 65-75-3769Dospgydzzp [Mass/Vol]Creatinine [Mass/volume] in Serum or PlasmaLow 0.60-1.20Mercy Memorial HospitalDipstick and Microscopicon 09-15-2024 Appearance (U)ClearNormalClearThe [facility]son Physician GroupComment on above: Order Comment: Name Collection Type:: Clean-Voided MidstreamPerformed By: #### CMP, CK, HS TROP, CBC #### [facility] [address] [id number] USABacteria,UrineNone SeenNormalNone SeenThe [facility]son Physician GroupComment on above:Order Comment: Name Collection Type:: Clean- Voided MidstreamPerformed By: #### CMP, CK, HS TROP, CBC #### [facility] [address] [id number] USABilirubin,UrineNegativeNormalNegativeThe [facility] Physician GroupComment on above:Order Comment: Name Collection Type:: Clean- Voided MidstreamPerformed By: #### CMP, CK, HS TROP, CBC #### [facility] [address] [place] [address] USAColor (U)YellowNormalYellowMease [facility] Comment on above:Order Comment: Name Collection Type:: Clean-Voided Midstream Performed By: #### CMP, CK, HS TROP, CBC #### [facility] [address] [place] [address] USAGlucose Ql (U)NormalNormalNormalThe [facility] Physician GroupComment on above:Order Comment: Name Collection Type:: Clean-Voided MidstreamPerformed By: #### CMP, CK, HS TROP, CBC #### [facility] [address] [place] [address] USAHyaline Casts,UrineNoneNormal0-8The [facility] Physician GroupComment on above:Order Comment: Name Collection Type:: Clean-Voided MidstreamPerformed By: #### CMP, CK, HS TROP, CBC #### [place] [address] USAKetones Ql (U)1+HighNegativeMease [facility] Comment on above:Order Comment: Name Collection Type:: Clean-Voided Midstream Performed By: #### CMP, CK, HS TROP, CBC #### [facility] [address] [place], [place] [phone] USALeukocyte esterase Test strip Ql (U)NegativeNormalNegative Mease [facility] Physician GroupComment on above:Order Comment: Name Collection Type:: Clean-Voided MidstreamPerformed By: #### CMP, CK, HS TROP, CBC #### [facility] [address] [place] [address] USAMucus,UrineRareNormalThe [facility] Physician GroupComment on above:Order Comment: Name Collection Type:: Clean-Voided MidstreamPerformed By: #### CMP, CK, HS TROP, CBC #### [facility] [address] [place] [address] USANitrite,UrineNegativeNormalNegativeMease [facility] Physician GroupComment on above:Order Comment: Name Collection Type:: Clean-Voided MidstreamPerformed By: #### CMP, CK, HS TROP, CBC #### [place] [address] USAOccult Blood,UrineNegativeNormalNegativeThe [facility] Physician GroupComment on above:Order Comment: Name Collection Type:: Clean- Voided MidstreamPerformed By: #### CMP, CK, HS TROP, CBC #### [place] [address] USApH (U)7.0 [pH]Normal5.0-9.0[facility] Comment on above:Order Comment: Name Collection Type:: Clean-Voided Midstream Performed By: #### CMP, CK, HS TROP, CBC #### [place] [address] USAProtein,UrineTraceHighNegativeThe [facility] Physician GroupComment on above:Order Comment: Name Collection Type:: Clean-Voided MidstreamPerformed By: #### CMP, CK, HS TROP, CBC #### [place] [address] USARBC,Urine1 [HPF]Normal0-4[facility] Comment on above:Order Comment: Name Collection Type:: Clean-Voided Midstream Performed By: #### CMP, CK, HS TROP, CBC #### [place] [address] USASpecificy Cresco,Urine1.856Qaupth7.001-1.030The [facility] Physician GroupComment on above:Order Comment: Name Collection Type:: Clean- Voided MidstreamPerformed By: #### CMP, CK, HS TROP, CBC #### [place] [address] USASquamous Epithelial Cell,Urine3 [HPF]High0-2The [facility] Physician GroupComment on above:Order Comment: Name Collection Type:: Clean- Voided MidstreamPerformed By: #### CMP, CK, HS TROP, CBC #### [place] [address] USAUrobilinogen,Urine2 mg/dLHighNormalThe [facility]ician GroupComment on above:Order Comment: Name Collection Type:: Clean-Voided MidstreamPerformed By: #### CMP, CK, HS TROP, CBC #### [place] [address] USAWBC,Urine1 [HPF]Normal0-4[facility] Comment on above:Order Comment: Name Collection Type:: Clean-Voided Midstream Performed By: #### CMP, CK, HS TROP, CBC #### [place] [address] USADrug Screen,Urineon 65-53-4853Jqdizivbdxh Screen,Urine NegativeNormalNegativeThe [facility]ician GroupComment on above:Performed By: #### CMP, CK, HS TROP, CBC #### [place] [address] USABarbiturate Screen,UrineNegativeNormalNegativeThe [facility] Physician GroupComment on above:Performed By: #### CMP, CK, HS TROP, CBC #### [place] [address] USABenzodiazepines Screen,UrineNegativeNormalNegativeMease [facility] Physician GroupComment on above:Performed By: #### CMP, CK, HS TROP, CBC #### [place] [address] USACannabinoid Screen,UrineNegativeNormalNegativeMease [facility] Physician GroupComment on above:Result Comment: These are unconfirmed results and should not be used for legal purposes. Drug Cut-Off Concentration: AMPH 1000 ng/mL OPAL 200 ng/mL AURELIANO 200 ng/mL COCM 300 ng/mL OP 300 ng/mL PCP 25 ng/mL THC 20 ng/mL PERFORMED BY: [place] [address] PATHOLOGIST COMPLAINT EVALUATION SUPERVISOR CARLOS KNAPP M.D.Performed By: #### CMP, CK, HS TROP, CBC #### [place] [address] USACocaine Screen,UrineNegativeNormalNegativeThe [facility] Physician GroupComment on above:Performed By: #### CMP, CK, HS TROP, CBC #### [facility] [address] [place] [address] USAOpiate Screen,UrineNegativeNormalNegativeMease [facility] Physician GroupComment on above:Performed By: #### CMP, CK, HS TROP, CBC #### [facility] [address] [place] [address] USAPhencyclidine Screen,UrineNegativeNormalNegativeThe [facility] Physician GroupComment on above:Performed By: #### CMP, CK, HS TROP, CBC #### [facility] [address] [place] [address] USAECG 12 lead ECGon 55-52-1589WYM 12 lead ECGPARKWOOD [facility] [place] [address] [place] [address] Electrocardiograph Report Signed Patient: Shazia Chou MR#: [id number] : 1990 Acct:[id number] Age/Sex: 33 / F ADM Date: 09/15/24 Loc: ER Room: Type: [facility] ER Attending Dr: Ordering Provider: Sailaja Anderson [...] needs review Confirmed by Agus Hooper DO ([id number]) on 09/15/2024 3:29:15 PM Referred By: Electronically Signed By: Agus Hooper DO Transcribed By: MUS Signed By Agus Hooper DO 5 1529[facility] Physician GroupEosinophils Auto (Bld) [#/Vol]Ordered By: Sailaja Anderson on 31-79-7077Jnzcobqfost (Bld) [#/Vol]Automated eosinophil count0.0-0.45Mer[facility] Memorial HospitalEosinophils/100 WBC Auto (Bld) Ordered By: Sailaja Anderson on 12-83-2708Sjlscxattry/100 WBC (Bld)Automated eosinophil %.[facility] Memorial HospitalEpithelial cells.squamous [#/area] in Urine sediment by Automated countOrdered By: Sailaja Anderson on 09-15-2024 Epithelial cells.squamous Auto (Urine sed) [#/Area]Epithelial cells.squamous [#/area] in Urine sediment by Automated countHigh0-2FCleveland ClinicErythrocyte Sedimentation Rateon 30-23-3109XUP (Bld) [Velocity]7 mm/h Normal0-The [facility]ician GroupComment on above:Result Comment: PERFORMED BY: [facility] [address] [place] [address] PATHOLOGIST COMPLAINT EVALUATION SUPERVISOR CARLOS KNAPP M.D.Performed By: #### ANTIR, ADNA, SJOGRENS, HELM, C3, HISAB, CCP, CHROMATIN, CENTROME, RA, CH50, CYNDI, [id number], JO1, B2 GLYPROT, CARDIO GMA, C4 #### [facility] ,Erythrocyte distribution width Auto (RBC) [Ratio]Ordered By: Sailaja Anderson on 67-31-1541Ngjrendsdbi distribution width (RBC) [Ratio]Erythrocyte distribution width [Ratio] by Automated hjtecGwze53.9-15.3FCleveland Clinic Erythrocyte sedimentation rate by Photometric methodOrdered By: Sailaja Anderson on 82-83-3377CHD Photometric method (Bld) [Velocity]Erythrocyte sedimentation rate by Photometric method0Mer[facility] Memorial HospitalErythrocytes [#/area] in Urine sediment by Automated countOrdered By: Sailaja Anderson on 50-55-1246BXZ Auto (Urine sed) [#/Area]Erythrocytes [#/area] in Urine sediment by Automated count0-Cleveland ClinicEthanol [Mass/volume] in Serum or PlasmaOrdered By: Sailaja Anderson on 42-36-5844Fglondl [Mass/Vol] Ethanol [Mass/volume] in Serum or PlasmaMercy Memorial HospitalComment on above:Test not performedEthyl Alcohol Profileon 33-96-8013Xrdociy [Mass/Vol] mg/dLNoUNC Health Johnston Clayton Physician GroupComment on above:Performed By: #### ANTIR, ADNA, SJOGRENS, HELM, C3, HISAB, CCP, CHROMATIN, CENTROME, RA, CH50, CYNDI, [id number], JO1, B2 GLYPROT, CARDIO GMA, C4 #### [facility] ,Percent EthanolNot performedNoUNC Health Johnston Clayton Physician GroupComment on above:Result Comment: PERFORMED BY: [facility] [address] [address] PATHOLOGIST COMPLAINT EVALUATION SUPERVISOR CARLOS KNAPP M.D.Performed By: #### ANTIR, ADNA, SJOGRENS, HELM, C3, HISAB, CCP, CHROMATIN, CENTROME, RA, CH50, CYNDI, [id number], JO1, B2 GLYPROT, CARDIO GMA, C4 #### [facility] ,Family Medicine Office/Clinic Noteon 62-10-6242Qmcoxv Medicine Office/Clinic NoteFanantucket cottage hospital Medicine Office/Clinic Note Chief Complaint New Pt HPI Staff Pt is a new pt. Presenting today to establish care. Establish Care: History: Any previous diagnosis: Iron deficiency anemia History of seeing any specialist: general surgery for lump on breast & cardiology When was your last doctors visit: 07/2024 Last provider: Mia PERRY Any recent labs: done @ [facility] ER 09/05/24 Health Maintenance UTD: Colonoscopy: NA [place]amm[place]09[place] [facility] [place]vic/Pap: 12/05 following hysterectomy, states she was told she no longer needs them Acute: Current issues/complaints: Iron deficiency anemia & fatigue. Leg & Arm weakness. Skin discoloration & hair falling off. PHQ9 23 Biggest concern is increased weakness. History of Present Illness 33 year old patient presents to establish care and to discuss generalized progressive weakness. Felaorts the weakness started about 5-6 weeks ago and has become progressively worse. She reports she went to her previous pcp in July, to the [facility] ED on 09/05/2024 and again on 09/11/2024. She reports she was at [facility] last week and they performed a bunch of laboratory testing that came back negative. She was seen at in [place] on 09/13/2024 for chest pain and this [...] no food allergies, no recurrent infections, no impairedimmunity Additional ROS info: Except as noted in [...] site) Reviewed the discharge summary from [facility]- CMP, CRP, ESR, & CBC - WNL Reviewed the Echo from in [place] on the 13 of September- Normal results Awaiting additional records from providers f/u after consult with neurology Ordered: [facility] [place]ulatory Referral 2. Balance problem (R26.89: Other abnormalities of gait and mobility) Reviewed the discharge summary from [facility]- CMP, CRP, ESR, & CBC - WNL Reviewed the Echo from in [place] on the 13 of September- Normal results Awaiting additional records from providers f/u after consult with neurology Ordered: [facility] [place]ulatory Referral 3. Encounter to establish [...] medical support in addres (more content not included)...[facility]orial Health SystemComment on above:Result Comment: Electronically Signed By: KURT BALBUENA CNP\.benito\Date and Time Signed: 09/15/24 14:31 ESTFree T4 (Free Thyroxine)on 37-94-9469Jeqh T4 [Mass/Vol]1.02 ng/dLNormal0.61-1.12The [facility] Physician GroupComment on above:Performed By: #### ANTIR, ADNA, SJOGRENS, HELM, C3, HISAB, CCP, CHROMATIN, CENTROME, RA, CH50, CYNDI, [id number], JO1, B2 GLYPROT, CARDIO GMA, C4 #### [facility] ,Globulin Calc (S) [Mass/Vol]Ordered By: Sailaja Anedrson on 88-85-1947Mtuqhykz (S) [Mass/Vol]Serum globulin measurement by calculation (mass/volume)[facility] Memorial HospitalGlucose [Mass/volume] in Serum or PlasmaOrdered By: Sailaja Anderson on 53-74-0360Nagohwv [Mass/Vol]Glucose [Mass/volume] in Serum or Nimydx02-613LemsklrqaMercy Memorial HospitalComment on above:ADA recommended reference rangeRandom Glucose Reference Range is dependent on time and content of last meal. Glucose of more than 200 mg/dL in a nonstressed, ambulatory subject supports the diagnosisof Diabetes Mellitus.Glucose [Mass/volume] in Urine by Test stripOrdered By: Sailaja Anderson on 33-32-4110Kfgjbsl Test strip (U) [Mass/Vol]Glucose [Mass/volume] in Urine by Test stripNormalMercy Memorial HospitalHCG ( test) IA.rapid Ql (U)Ordered By: Sailaja Anderson on 29-79-4693BED ( test) Ql (U)Urine human chorionic gonadotropin (hCG) detection by immunoassayMercy Memorial Hospital HCG,Urineon 87-34-6385Whyg HCG ( test) Ql (U)NegativeNoUNC Health Johnston Clayton Physician GroupComment on above:Order Comment: Name Collection Type:: Clean-Voided MidstreamResult Comment: PERFORMED BY: [place] [address] PATHOLOGIST COMPLAINT EVALUATION SUPERVISOR CARLOS KNAPP M.D.Performed By: #### CMP, CK, HS TROP, CBC #### [place] [address] USAHematocrit Auto (Bld) [Volume fraction]Ordered By: Sailaja Anderson on 56-89-7206Ujzxgiifnd (Bld) [Volume fraction]Hematocrit [Volume Fraction] of Blood by Automated count34.0-46.4FCleveland ClinicHemoglobin Test strip Ql (U)Ordered By: Sailaja Anderson on 09-15-2024 Hemoglobin Ql (U)Hemoglobin [Presence] in Urine by Test stripNegSelect Medical Cleveland Clinic Rehabilitation Hospital, AvonHemoglobin [Mass/volume] in BloodOrdered By: Sailaja Anderson on 90-95-4692Ixzhhximjk (Bld) [Mass/Vol]Hemoglobin [Mass/volume] in Blood 11.8-15.4FCleveland ClinicHyaline casts [#/area] in Urine sediment by Automated countOrdered By: Sailaja Anderson on 64-25-5691Plellyd casts Auto (Urine sed) [#/Area]Hyaline casts [#/area] in Urine sediment by Automated count0-8Mer[facility] Memorial HospitalINR in Platelet poor plasma by Coagulation assayOrdered By: Sailaja Anderson on 15-07-3345ATE Coag (PPP) [Relative time]INR in Platelet poor plasma by Coagulation assayMercy Memorial HospitalComment on above:INR Therapeutic Range A) Pre- and Peroperative OAT started two weeks before surgery. NOT HIP SURGERY: 1.5 - 2.5 HIP SURGERY: 2 - 3B) Primary and secondary prevention of venous THROMBOSIS: 2 - 3C) Active venous thrombosis, pulmonary embolismand prevention of recurrent venous thrombosis: 2 - 3D) Prevention of arterial thromboembolismincluding patients with mechanical heart valves: 3 - 4.5Ketones Test strip Ql (U)Ordered By: Sailaja Anderson on 26-93-6866Gbcsuyx Ql (U)Ketones [Presence] in Urine by Test stripHighNegSelect Medical Cleveland Clinic Rehabilitation Hospital, AvonLeukocyte esterase [Presence] in Urine by Test stripOrdered By: Sailaja Anderson on 09-15-2024 Leukocyte esterase Test strip Ql (U)Leukocyte esterase [Presence] in Urine by Test stripNegSelect Medical Cleveland Clinic Rehabilitation Hospital, AvonLeukocytes [#/area] in Urine sediment by Automated countOrdered By: Sailaja Anderson on 67-10-6631HQJ Auto (Urine sed) [#/Area]Leukocytes [#/area] in Urine sediment by Automated count0-4 [facility] Memorial HospitalLeukocytes [#/volume] corrected for nucleated erythrocytes in Blood by Automated counOrdered By: Sailaja Anderson on 09-15-2024 WBC corrected for nucl RBC Auto (Bld) [#/Vol]Leukocytes [#/volume] corrected for nucleated erythrocytes in Blood by Automated coun3.8-11.6FCleveland ClinicLymphocytes Auto (Bld) [#/Vol]Ordered By: Sailaja Anderson on 21-90-0061Ncoxrztdxbe (Bld) [#/Vol]Lymphocytes [#/volume] in Blood by Automated count1.00-4.8[facility] Memorial HospitalLymphocytes/100 WBC Auto (Bld) Ordered By: Sailaja Anderson on 25-94-4940Ouzusxjzjbu/100 WBC (Bld) Lymphocytes/100 leukocytes in Blood by Automated count.[facility]UM[facility] HospitalH Auto (RBC) [Entitic mass]Ordered By: Sailaja Anderson on 12-93-7358JDL (RBC) [Entitic mass]MCH [Entitic mass] by Automated count24.7-34.3 [facility] HospitalMCHC Auto (RBC) [Mass/Vol]Ordered By: Sailaja Anderson on 81-34-0570GLAZ (RBC) [Mass/Vol]MCHC [Mass/volume] by Automated count 32.0-35.0Mer[facility] HospitalMCV Auto (RBC) [Entitic vol]Ordered By: Sailaja Anderson on 81-35-4441EBI (RBC) [Entitic vol]MCV [Entitic volume] by Automated ikhxj73-997FnglhrvtwMercy Memorial HospitalMagnesiumon 09-15-2024 Magnesium [Mass/Vol]1.7 mg/dLLow1.9-2.7The [facility]ician GroupComment on above:Performed By: #### ANTIR, ADNA, SJOGRENS, HELM, C3, HISAB, CCP, CHROMATIN, CENTROME, RA, CH50, CYNDI, [id number], JO1, B2 GLYPROT, CARDIO GMA, C4 #### [facility] ,Magnesium [Mass/volume] in Serum or PlasmaOrdered By: Sailaja Anderson on 21-41-4619Gbneweeuu [Mass/Vol]Magnesium [Mass/volume] in Serum or PlasmaLow 1.9-2.7FCleveland ClinicMonocyte distribution width [Entitic volume] in Blood by AutomatedOrdered By: Sailaja Anderson on 54-89-1086Cmiciuap distribution width Auto (Bld) [Entitic vol]Monocyte distribution width [Entitic volume] in Blood by Automated0.00-20.00[facility] Monocytes Auto (Bld) [#/Vol]Ordered By: Sailaja Anderson on 80-83-8338Fdcyhbfaf (Bld) [#/Vol]Automated blood monocyte count0.0-0.8Mer[facility] Memorial HospitalMonocytes/100 WBC Auto (Bld)Ordered By: Sailaja Anderson on 09-15-2024 Monocytes/100 WBC (Bld)Automated monocyte %.[facility] Mucus [Presence] in Urine by AutomatedOrdered By: Sailaja Anderson on 09-15-2024 Mucus Auto Ql (U)Mucus [Presence] in Urine by AutomatedMercy Memorial HospitalNeutrophils Auto (Bld) [#/Vol]Ordered By: Sailaja Anderson on 81-08-0578Lbtgdhkwhic (Bld) [#/Vol]Neutrophils [#/volume] in Blood by Automated count1.8-7.7FCleveland ClinicNeutrophils/100 WBC Auto (Bld) Ordered By: Sailaja Anderson on 52-40-0787Qztflmvemfm/100 WBC (Bld)Automated neutrophil %.[facility] HospitalNitrite Test strip Ql (U)Ordered By: Sailaja Anderson on 60-55-6054Eqaijnf Ql (U)Nitrite [Presence] in Urine by Test stripNegativeMercy Memorial HospitalNo Panel InformationOrdered By: Sailaja Anderson on 14-17-8883Ohsiiivpz GFR (CKD-EPI)> 60.0 mL/MinMercy Memorial HospitalPharmacy Creatinine Clearance (Obgr475.80Mer[facility] Memorial HospitalNucleated erythrocytes [Presence] in Blood by Automated countOrdered By: Sailaja Anderson on 90-69-3361Vaozrdrph RBC Auto Ql (Bld) Nucleated erythrocytes [Presence] in Blood by Automated count0-0.5FCleveland ClinicOpiates [Presence] in Urine by Screen methodOrdered By: Sailaja Anderson on 06-91-2615Viyiebj Screen Ql (U)Opiates [Presence] in Urine by Screen methodNegativeMercy Memorial HospitalPartial Thromboplastin Timeon 93-53-5484wBRL Coag (Bld) [Time]28.0 xFhxewn07.1-36.5[facility] Physician GroupComment on above:Result Comment: A hematocrit value greater than 55% may lead to inaccurate results in coagulation testing. Patients having hematocrit values >55% require a special collection tube for coagulation studies. Please contact the laboratory at [phone] for redraw instructions. PERFORMED BY: [facility] [address] [place] [address] PATHOLOGIST COMPLAINT EVALUATION SUPERVISOR CARLOS KNAPP M.D.Performed By: #### ANTIR, ADNA, SJOGRENS, HELM, C3, HISAB, CCP, CHROMATIN, CENTROME, RA, CH50, CYNDI, [id number], JO1, B2 GLYPROT, CARDIO GMA, C4 #### [facility] ,Phencyclidine Screen Ql (U)Ordered By: Sailaja Anderson on 09-15-2024 Phencyclidine Ql (U)Phencyclidine [Presence] in Urine by Screen methodNegative [facility] Memorial HospitalPlatelet mean volume Auto (Bld) [Entitic vol] Ordered By: Sailaja Anderson on 59-01-9599Dgtnaspz mean volume (Bld) [Entitic vol]Platelet mean volume [Entitic volume] in Blood by Automated count6.3-10.7 [facility] HospitalPlatelets Auto (Bld) [#/Vol]Ordered By: Sailaja Anderson on 19-31-7568Pjbdmzacc (Bld) [#/Vol]Platelets [#/volume] in Blood by Automated tjmuj180-523EiyniigyzMercy Memorial HospitalPotassium [Moles/volume] in Serum or PlasmaOrdered By: Sailaja Anderson on 09-15-2024 Potassium [Moles/Vol]Potassium [Moles/volume] in Serum or Plasma3.5-5.1FCleveland ClinicProtein Test strip (U) [Mass/Vol]Ordered By: Sailjaa Anderson on 24-97-6247Hmvjwlw (U) [Mass/Vol]Protein [Mass/volume] in Urine by Test stripHighNegativeMercy Memorial HospitalProtein [Mass/volume] in Serum or PlasmaOrdered By: Sailaja Anderson on 20-27-3034Kqkdgdq [Mass/Vol] Protein [Mass/volume] in Serum or Plasma6.4-8.9[facility] Prothrombin Time INRon 32-92-4038QIP Coag (PPP) [Relative time]0.9 {INR}Normal [facility] Physician GroupComment on above:Result Comment: INR Therapeutic Range A) Pre- and [...] patients with mechanical heart valves: 3 - 4.5Performed By: #### ANTIR, ADNA, SJOGRENS, HELM, C3, HISAB, CCP, CHROMATIN, CENTROME, RA, CH50, CYNDI, [id number], JO1, B2 GLYPROT, CARDIO GMA, C4 #### [facility] ,PT Coag (PPP) [Time]10.4 sNormal9.0-12.9The [facility] Physician GroupComment on above:Result Comment: A hematocrit value greater than 55% may lead to inaccurate results in coagulation testing. Patients having hematocrit values >55% require a special collection tube for coagulation studies. Please contact the laboratory at [phone] for redraw instructions.Performed By: #### ANTIR, ADNA, SJOGRENS, HELM, C3, HISAB, CCP, CHROMATIN, CENTROME, RA, CH50, CYNDI, [id number], JO1, B2 GLYPROT, CARDIO GMA, C4 #### [facility] ,Prothrombin time (PT)Ordered By: Sailaja Anderson on 53-37-4432ZW Coag (PPP) [Time]Prothrombin time (PT)9.0-12.9[facility] HospitalComment on above:A hematocrit value greater than 55% may lead to inaccurate results in coagulation testing. Patientshaving hematocrit values >55% require a special collection tube for coagulation studies. Please contact the laboratory at [phone] for redraw instructions.RBC Auto (Bld) [#/Vol]Ordered By: Sailaja Anderson on 74-93-6850GNY (Bld) [#/Vol]Erythrocytes [#/volume] in Blood by Automated count3.60-5.00[facility] Rutan Hospitalerum or plasma albumin/globulin mass ratioOrdered By: Sailaja Anderson on 09-15-2024 Albumin/Globulin [Mass ratio]Serum or plasma albumin/globulin mass ratio [facility] Hospitalerum or plasma anion gap determinationOrdered By: Sailaja Anderson on 59-55-8172Eqxbe gap [Moles/Vol]Serum or plasma anion gap determination6.0-15.0[facility] Rutan Hospitalodium [Moles/volume] in Serum or PlasmaOrdered By: Sailaja Anderson on 55-83-7388Zwbvil [Moles/Vol]Sodium [Moles/volume] in Serum or Ojwsft393-634UqekcqikbMercy Memorial Hospital Specific gravity Test strip (U) [Rel density]Ordered By: Sailaja Anderson on 07-83-3857Nmsyjbiq gravity (U) [Rel density]Specific gravity of Urine by Test strip1.001-1.030[facility] Memorial HospitalThyroid Stimulating Hormoneon 18-35-2681MEQ Qn0.73 m[IU]/LNormal0.45-5.33The [facility] Physician GroupComment on above:Result Comment: PERFORMED BY: [facility] [address] [place] [address] PATHOLOGIST COMPLAINT EVALUATION SUPERVISOR CARLOS KNAPP M.D.Performed By: #### ANTIR, ADNA, SJOGRENS, HELM, C3, HISAB, CCP, CHROMATIN, CENTROME, RA, CH50, CYNDI, GSQ52PR, JO1, B2 GLYPROT, CARDIO GMA, C4 #### [facility] ,Thyrotropin [Units/volume] in Serum or PlasmaOrdered By: Sailaja Anderson on 90-59-7348LPX QnThyrotropin [Units/volume] in Serum or Plasma0.45-5.33[facility] HospitalThyroxine (T4) free [Mass/volume] in Serum or Plasma Ordered By: Sailaja Anderson on 65-28-7744Fdah T4 [Mass/Vol]Thyroxine (T4) free [Mass/volume] in Serum or Plasma0.61-1.12[facility] Troponin I High Sensitivityon 68-06-5561Hjpumxth I High Sensitivity2.3 pg/mL Normal0.0-15.0The [facility] Physician GroupComment on above:Result Comment: PERFORMED BY: [facility] [address] [place] [address] PATHOLOGIST COMPLAINT EVALUATION SUPERVISOR CARLOS KNAPP M.D.Performed By: #### ANTIR, ADNA, SJOGRENS, HELM, C3, HISAB, CCP, CHROMATIN, CENTROME, RA, CH50, CYNDI, MYS73YB, JO1, B2 GLYPROT, CARDIO GMA, C4 #### [facility] ,Troponin I.cardiac [Mass/volume] in Serum or Plasma by Detection limit <= 0.01 ng/Ordered By: Sailaja Anderson on 82-65-1745Qrxmkijl I.cardiac DL <= 0.01 ng/mL [Mass/Vol]Troponin I.cardiac [Mass/volume] in Serum or Plasma by Detection limit <= 0.01 ng/0.0-15.0[facility] HospitalUrea nitrogen [Mass/volume] in Serum or PlasmaOrdered By: Sailaja Anderson on 28-70-4117Gopp nitrogen [Mass/Vol]Urea nitrogen [Mass/volume] in Serum or PlasmaLow7-25Mer[facility] Memorial HospitalUrobilinogen Test strip (U) [Mass/Vol]Ordered By: Sailaja Anderson on 41-64-8314Sxmmlvnrqhnc (U) [Mass/Vol]Urobilinogen [Mass/volume] in Urine by Test stripHighNormalMercy Memorial Hospital WBC Auto (Bld) [#/Vol]Ordered By: Sailaja Anderson on 03-43-7220FON (Bld) [#/Vol] Leukocytes [#/volume] in Blood by Automated count3.8-11.6FCleveland ClinicX-ray reportOrdered By: Wiley Shetty on 77-45-0018Pcqxh report [facility] Main [address] [address] XRay Report Signed Patient: Shazia Chou MR#: [id number] : 1990 Acct:[id number] Age/Sex: 33 / F ADM Date: Loc: ER Room: Type: [facility] ER Attending Dr: Copies to: Sailaja Anderson [...] Wiley Shetty M.D.09/15/2024 3:56 PM Dictation Location: [place] [address] Transcribed By: [facility] 09/15/24 1556 Dictated By: Wiley Shetty II, MD 09/15/24 155 Signed By: 09/15/24 1556 [facility] Work Phone: XR chest 2V*on 35-33-3072FP chest 2V*[facility] Main [address] [address] XRay Report Signed Patient: Shazia Chou MR#: [id number] : 1990 Acct:[id number] Age/Sex: 33 / F ADM Date: 09/15/24 Loc: ER Room: Type: [facility] ER Attending Dr: Copies to: Sailaja Anderson [...] Wiley Shetty M.D.09/15/2024 3:56 PM Dictation Location: [place] [address] Transcribed By: MARKY 09/15/241555 Dictated By: Wiley Shetty II, MD 09/15/241555 Signed By: 09/15/24 155[facility] Physician GroupaPTT in Platelet poor plasma by Coagulation assayOrdered By: Sailaja Anderson on 88-31-5234uCSM Coag (PPP) [Time] Activated partial thromboplastin time (aPTT) in platelet poor plasma by coagulation a25.1-36.5FCleveland ClinicComment on above:A hematocrit value greater than 55% may lead to inaccurate results in coagulation testing. Patientshaving hematocrit values >55% require a special collection tube for coagulation studies. Please contact the laboratory at [phone] for redraw instructions.pH Test strip (U)Ordered By: Sailaja Anderson on 57-86-4411oK (U)pH of Urine by Test strip5.0-9.0[facility] TRANSTHORACIC ECHO (TTE) COMPLETEon 86-51-7019WGBNFZOQQBCXN ECHO (TTE) COMPLETE [address], Suite [facility], [place] [address] TRANSTHORACIC ECHOCARDIOGRAM REPORT Patient Name: SHAZIA Garcia Physician: [id number] Adithya Boswell MD, [facility] Study Date: 09/13/2024 Ordering Provider: [id number] ALEAH HOWARD MRN/PID: [id number] Fellow: Nurse: Date of /Age: 4 1990 / 33 years Screen Vent Binder: Julissa Licona RDCS, RVT Gender Assigned at F Additional Staff: : Height: 170.18 cm Admit Date: Weight: 85.28 kg Admission Status: BSA / BMI: 1.97 m2 / 29.45 Department Location: [facility] kg/m2 [facility] [place] Blood Pressure: 118 /76 mmHg Study Type: TRANSTHORACIC ECHO (TTE) COMPLETE Diagnosis/ICD: Angina pectoris, unspecified-I20.9; Shortness of breath-R06.02; Palpitations-R00.2; Family history of ischemic heart disease and other diseases of the circulatory system-Z82.49; Essential (primary) hypertension-I10 Indication: Tobacco Abuse, Anxiety/Depression, Pseudotumor Cerebri, ETOH Abuse, Bipolar Disorder, History of Gastric Bypass CPT Codes: Echo Complete w Full Doppler-33017 Study Detail: The following Echo studies were [...] 0.7 m/s (0.6-0.9m/s) PV Max P.1 mmHg [id number] Adithya Boswell MD, FACC Electronically signed on 09/13/2024 at 4:00:19 PM Final [facility]US Heart TransthoracicOrdered By: Adithya Boswell on 78-46-5586Kywmua Valve Area by Continuity of Peak Velocity2.48 eu3XcwnkurprjBluffton Hospital Work Phone: Aortic Valve Area by Continuity of VTI2.66 cm2 [facility] Work Phone: [phone] mn zqzi9kqVhGszqqgkvhlUC [facility] Work Phone: [phone] pk imrd4jsKdQwjeevcwbiUC [facility] Work Phone: [phone] pk vel1.43 m/[facility] Work Phone: [phone] A4C EF67.8UnOhio State Health System Work Phone: [phone] Biplane EF68 %[facility] Work Phone: [phone] EF68 %[facility] Work Phone: [phone] cmBluffton Hospital Work Phone: [phone] diam2.2 [facility] Work Phone: [phone] avg E/e' ratio6.6[facility] Work Phone: [phone] E/A ratio1.52[facility] Work Phone: [phone]uffton Hospital Work Phone: [facility] Work Phone: US Heart Transthoracicon 09-13-2024 [facility] [place] [address] [facility], [address], [place] [address] TRANSTHORACIC ECHOCARDIOGRAM REPORT Patient Name: SHAZIA SONYA Reading Physician: [id number] Adithya Boswell MD, [facility] Study Date: 09/13/2024 Ordering Provider: [id number] ALEAH HOWARD MRN/PID: [id number] Fellow: Nurse: Date of /Age: 4 1990 / 33 years Screen Vent Binder: Julissa Licona RDCS, T Gender Assigned at F Additional Staff: : Height: 170.18 cm Admit Date: Weight: 85.28 kg Admission Status: BSA / BMI: 1.97 m2 / 29.45 Department Location: [facility] kg/m2 [facility] Blood Pressure: 118 /76 mmHg Study Type: TRANSTHORACIC ECHO (TTE) COMPLETE Diagnosis/ICD: Angina pectoris, unspecified-I20.9; Shortness of breath-R06.02; Palpitations-R00.2; Family history of ischemic heart disease and other diseases of the circulatory system-Z82.49; Essential (primary) hypertension-I10 Indication: Tobacco Abuse, Anxiety/Depression, Pseudotumor Cerebri, ETOH Abuse, Bipolar Disorder, History of Gastric Bypass CPT Codes: Echo Complete w Full Doppler-91527 Study Detail: The following Echo studies were [...] (1.7-11.5mmHg) LVOT Max Joellen (more content not included)...Adithya Sun MD - 09/13/[address], [address] [address] TRANSTHORACIC ECHOCARDIOGRAM REPORT Patient Name: SHAZIA CHOU Reading Physician: [id number] Adithya Boswell MD, [facility] Study Date: 09/13/2024 Ordering Provider: [id number] ALEAH HOWARD MRN/PID: [id number] Fellow: Nurse: Date of /Age: 4 1990 / 33 years Screen Vent Binder: Julissa Licona RDCS T Gender Assigned at F Additional Staff: : Height: 170.18 cm Admit Date: Weight: 85.28 kg Admission Status: BSA / BMI: 1.97 m2 / 29.45 Department Location: [facility] kg/m2 [facility] Blood Pressure: 118 /76 mmHg Study Type: TRANSTHORACIC ECHO (TTE) COMPLETE Diagnosis/ICD: Angina pectoris, unspecified-I20.9; Shortness of breath-R06.02; Palpitations-R00.2; Family history of ischemic heart disease and other diseases of the circulatory system-Z82.49; Essential (primary) hypertension-I10 Indication: Tobacco Abuse, Anxiety/Depression, Pseudotumor Cerebri, ETOH Abuse, Bipolar Disorder, History of Gastric Bypass CPT Codes: Echo Complete w Full Doppler-32140 Study Detail: The following Echo studies were [...] 0.7 m/s (0.6-0.9m/s) PV Max P.1 mmHg [id number] Adithya Boswell MD, FACC Electronically signed on 09/13/2024 at 4:00:19 PM Final [facility] Work Phone: EBH Early Abon 51-29-4556SLY early diffuse IgG Qn (S) <9.0Invalid Interpretation Code0.0-8.9[facility] Va Medical CenterComment on above:Result Comment: Negative < 9.0 Equivocal 9.0 - 10.9 Positive >10.9 Performed at: [facility] [address] [place], [place] [id number] PhD Cordelia MaderaPerformed By: #### [id number] #### [facility] [address], [place] [address]OSHTSNDMBUfgwjfw By: SYSTEM SYSTEM on 38-52-5940Sizesgrs [Mass/Vol]10 ng/mLLow11 - 307 ng/mLRemisol ChemIron [Mass/Vol]55 ug/gYSdivkx54 - 153 mcg/dLRemisol ChemIron binding capacity [Mass/Vol]414 ug/xPZgft386 - 400 mcg/dLRemisol ChemIron saturation [Mass fraction]13 %Low20 - 50 %Remisol Chem Transferrin [Mass/Vol]296 mg/lPVthlat150 - 370 mg/dLRemisol ChemReference Laboratory TestingOrdered By: Rayne Pinto on 29-68-9983Avol Zmkp658455 1 Invalid Interpretation CodeINTEGRIS HEALTH EDMOND – [facility] SendOutsSSTest Bynjd4NNxyemnr Interpretation CodeINTEGRIS HEALTH EDMOND – [facility] SendOutsSSECG [address] [place] 31-47-8855VnrnkhnfxfBluffton Hospital Work Phone: [phone]([place])D3 [facility] 19-44-598959279682-vnhuoxacwxqxbx D3 [Mass/Vol]41.9 ng/pZJeolso41.0-80.0[facility] HospitalComment on above: Order Comment: Specimen Type: BLOOD SPECIMENOrdering Facility: [facility] Address:[address] [place], [place] [address]Result Comment: Classification of 25 [place] Vitamin D status: Deficiency/Insufficiency: < or = 30 ng/ml. Sufficiency/Optimal Levels: 31-80 ng/mL Toxicity: > 100 ng/mL. Test performed by chemiluminescent immunoassay.Performed By: #### 1989-3 ####[facility] LABCLIA [id number] [facility] T[address]OCWMPNODS[address] OF AMERICACBC W Auto Differential panel (Bld)on 06-22-0861Gmzhujwpn (Bld) [#/Vol]0.05 10*3/uLNormal<0.11CDunlap Memorial Hospital on above:Order Comment: Specimen Type: BLOOD SPECIMEN Ordering Facility: [facility] Address: [address] [place], [place] [address]Performed By: #### 14565-2 #### [facility] CLIA [id number] [address] [place] [address]Prhwaebxj/100 WBC (Bld)0.4 %NormalMiami Valley Hospital Comment on above:Order Comment: Specimen Type: BLOOD SPECIMEN Ordering Facility: [facility] Address: [address] [place], [place] [address]Performed By: #### 51115-2 #### [facility] CLIA [id number] [address] [place] [address]Rabnmddfawtw cell count method Nom (Bld)AutoNormalClevelSelect Medical [facility] on above:Order Comment: Specimen Type: BLOOD SPECIMEN Ordering Facility: [facility] Address: [address] [place], [place] [address]Performed By: #### 86928-4 #### [facility] CLIA [id number] [address] [place] [address]Rztyeuztast (Bld) [#/Vol]0.29 10*3/uLNormal<0.46Mi[facility] HospitalComascension providence hospital on above:Order Comment: Specimen Type: BLOOD SPECIMEN Ordering Facility: [facility] Address: [address] [place], [place] [address]Performed By: #### 77119-0 #### [facility] CLIA [id number] [address] [place] [address] 59566Rztzbovgyxz/100 WBC (Bld)2.3 %NormalMiami Valley Hospital Comment on above:Order Comment: Specimen Type: BLOOD SPECIMEN Ordering Facility: [facility] Address: [address] [place], [place] [address]Performed By: #### 56091-2 #### [facility] CLIA [id number] [address] [place] [address]183Ohoinvstrxx distribution width (RBC) [Ratio]16.4 %High 11.5-15.0[facility] on above:Order Comment: Specimen Type: BLOOD SPECIMEN Ordering Facility: [facility] Address: [address] [place], [place] [address]Performed By: #### 86984-9 #### [facility] CLIA [id number] [address] [place] [address] 84350Ejfbjplmon (Bld) [Volume fraction]38.2 %Lgxyfm93.0-46.0 [facility] on above:Order Comment: Specimen Type: BLOOD SPECIMEN Ordering Facility: [facility] Address: [address] [place], [place] [address]Performed By: #### 70573-8 #### [facility] CLIA [id number] [address] [place] [address] 77276Wnaebphjyx (Bld) [Mass/Vol]13.0 g/tFRegmuk43.5-15.5CDunlap Memorial Hospital on above:Order Comment: Specimen Type: BLOOD SPECIMEN Ordering Facility: [facility] Address: [address] [place], [place] [address]Performed By: #### 43708-8 #### [facility] CLIA [id number] [address] [place] [address] 51051Dnufmeba granulocytes (Bld) [#/Vol]0.04 10*3/uLNormal<0.10 [facility] on above:Order Comment: Specimen Type: BLOOD SPECIMEN Ordering Facility: [facility] Address: [address] [place], [place] [address]Performed By: #### 61488-9 #### [facility] CLIA [id number] [address] [place] [address] 09635Fkfuxlpo granulocytes/100 WBC (Bld)0.3 %NormalDetwiler Memorial Hospital on above:Order Comment: Specimen Type: BLOOD SPECIMEN Ordering Facility: [facility] Address: [address] [place], [place] [address]Performed By: #### 50444-4 #### [facility] CLIA [id number] [address] [place] [address] 20643Wplodnmknsa (Bld) [#/Vol]1.78 10*3/uLNormal1.00-4.00[facility] on above:Order Comment: Specimen Type: BLOOD SPECIMEN Ordering Facility: [facility] Address: [address] [place], [place] [address]Performed By: #### 45765-8 #### [facility] CLIA [id number] [address] [place] [address] 56852Nwkzgitziht/100 WBC (Bld)14.4 %NormalDetwiler Memorial Hospital on above:Order Comment: Specimen Type: BLOOD SPECIMEN Ordering Facility: [facility] Address: [address] [place], [place] [address]Performed By: #### 32044-6 #### [facility] CLIA [id number] [address] [place] [address] 20505DLO (RBC) [Entitic mass]31.4 wxXsoeva96.0-34.0[facility] on above:Order Comment: Specimen Type: BLOOD SPECIMEN Ordering Facility: [facility] Address: [address] [place], [place] [address]Performed By: #### 67181-8 #### [facility] CLIA [id number] [address] [place], [place] [address]TZTN (RBC) [Mass/Vol]34.0 g/sGJwuafs92.5-36.0[facility] on above:Order Comment: Specimen Type: BLOOD SPECIMEN Ordering Facility: [facility] Address: [address] [place], [place] [address]Performed By: #### 26770-9 #### [facility] CLIA [id number] [address] [place], [place] [address]ORI (RBC) [Entitic vol]92.3 hAQjdvzw63.0-100.0[facility] on above:Order Comment: Specimen Type: BLOOD SPECIMEN Ordering Facility: [facility] Address: [address] [place], [place] [address]Performed By: #### 30553-1 #### [facility] CLIA [id number] [address] [place] [address] 97242Ivxqffkpk (Bld) [#/Vol]0.62 10*3/uLNormal<0.87[facility] on above:Order Comment: Specimen Type: BLOOD SPECIMEN Ordering Facility: [facility] Address: [address] [place], [place] [address]Performed By: #### 29060-0 #### [facility] CLIA [id number] [address] [place] [address] 63716Sdyvkygik/100 WBC (Bld)5.0 %NormalMiami Valley Hospital Comment on above:Order Comment: Specimen Type: BLOOD SPECIMEN Ordering Facility: [facility] Address: [address] [place], [place] [address]Performed By: #### 07709-6 #### [facility] CLIA [id number] [address] [place] [address] 24297Zawxfdzcaqa (Bld) [#/Vol]9.58 10*3/uLHigh1.45-7.50[facility] on above:Order Comment: Specimen Type: BLOOD SPECIMEN Ordering Facility: [facility] Address: [address] [place], [place] [address]Performed By: #### 47190-4 #### [facility] CLIA [id number] [address] [place] [address] 78754Yflidzqizde/100 WBC (Bld)77.6 %NormalDetwiler Memorial Hospital on above:Order Comment: Specimen Type: BLOOD SPECIMEN Ordering Facility: [facility] Address: [address] [place], [place] [address]Performed By: #### 10430-4 #### [facility] CLIA [id number] [address] [place], [place] [address]Opdbqcthq RBC (Bld) [#/Vol]10*3/uLNormal<0.01[facility] on above:Order Comment: Specimen Type: BLOOD SPECIMEN Ordering Facility: [facility] Address: [address] [place], [place] [address]Performed By: #### 14925-5 #### [facility] CLIA [id number] [address] [place], [place] [address]Eurybhkna RBC/100 WBC (Bld) [Ratio]0.0 /100 WBCNormalCDunlap Memorial Hospital on above:Order Comment: Specimen Type: BLOOD SPECIMEN Ordering Facility: [facility] Address: [address] [place], [place] [address]Performed By: #### 38879-1 #### [facility] CLIA [id number] [address] [place], [place] [address]Rvsnnctw mean volume (Bld) [Entitic vol]10.8 fLNormal9.0-12.7 [facility] on above:Order Comment: Specimen Type: BLOOD SPECIMEN Ordering Facility: [facility] Address: [address] [place], [place] [address]Performed By: #### 30857-7 #### [facility] CLIA [id number] [address] [place], [place] [address]Nfwhrkkrs (Bld) [#/Vol]302 10*3/bPSrbhor396-158AdkzzyoqyDetwiler Memorial Hospital on above:Order Comment: Specimen Type: BLOOD SPECIMEN Ordering Facility: [facility] Address: [address] [place], [place] [address]Performed By: #### 15082-8 #### [facility] CLIA [id number] [address] [place], [place] [address]VJO (Bld) [#/Vol]4.14 10*6/uLNormal3.90-5.20[facility] on above:Order Comment: Specimen Type: BLOOD SPECIMEN Ordering Facility: [facility] Address: [address] [place], [place] [address]Performed By: #### 42206-0 #### [facility] CLIA [id number] [address] [place] [address]DHZ (Bld) [#/Vol]12.36 10*3/uLHigh3.70-11.00[facility] on above:Order Comment: Specimen Type: BLOOD SPECIMEN Ordering Facility: [facility] Address: [address] [place], [place] [address]Performed By: #### 67696-2 #### [facility] CLIA [id number] [address] [place] [address] 138[address]Copkcttzuvctw metabolic 2000 panelon 30-55-2672Wfrwpxm [Mass/Vol]4.7 g/dLNormal3.9-4.9CDunlap Memorial Hospital on above:Order Comment: Specimen Type: BLOOD SPECIMEN Ordering Facility: [facility] Address: [address] [place], [place] [address]Performed By: #### 02446-4 #### [facility] CLIA [id number] [address] [place] [address] [place] AMERICAALP [Catalytic activity/Vol] 64 U/XIjcyel17-838AjbetmakjDetwiler Memorial Hospital on above:Order Comment: Specimen Type: BLOOD SPECIMEN Ordering Facility: [facility] Address: [address] [place], [place] [address]Performed By: #### 77427-6 #### [facility] CLIA [id number] [address] [place] [address] [place] AMERICAALT [Catalytic activity/Vol] 13 U/LNormal7-38[facility] on above:Order Comment: Specimen Type: BLOOD SPECIMEN Ordering Facility: [facility] Address: [address] [place], [place] [address]Performed By: #### 56805-4 #### [facility] CLIA [id number] [address] [place] [address] [place] AMERICAAnion gap [Moles/Vol]11 mmol/LNormal8-15[facility] on above:Order Comment: Specimen Type: BLOOD SPECIMEN Ordering Facility: [facility] Address: [address] [place], [place] [address]Performed By: #### 19245-3 #### [facility] CLIA [id number] [address] [place] [address] [place] AMERICAAST [Catalytic activity/Vol] 20 U/VXmvebg60-41DoonfsryjDetwiler Memorial Hospital on above:Order Comment: Specimen Type: BLOOD SPECIMEN Ordering Facility: [facility] Address: [address] [place], [place] [address]Performed By: #### 14457-5 #### [facility] CLIA [id number] [address] [place] [address] [place] AMERICABilirubin [Mass/Vol]0.2 mg/dLNormal0.2-1.3CDunlap Memorial Hospital on above:Order Comment: Specimen Type: BLOOD SPECIMEN Ordering Facility: [facility] Address: [address] [place], [place] [address]Performed By: #### 73108-8 #### [facility] CLIA [id number] [address] [place], [place] [address] [place] AMERICACalcium [Mass/Vol]9.6 mg/dL Normal8.5-10.2CDunlap Memorial Hospital on above:Order Comment: Specimen Type: BLOOD SPECIMEN Ordering Facility: [facility] Address: [address] [place], [place] [address]Performed By: #### 55191-3 #### [facility] CLIA [id number] [address] [place] [address] [place] AMERICAChloride [Moles/Vol]106 mmol/GFqldny60-439OqgoarmqrDetwiler Memorial Hospital on above:Order Comment: Specimen Type: BLOOD SPECIMEN Ordering Facility: [facility] Address: [address] [place], [place] [address]Performed By: #### 60792-6 #### [facility] CLIA [id number] [address] [place] [address] [place] AMERICACO2 [Moles/Vol]22 mmol/L Duastm52-74YyppdbqsgDetwiler Memorial Hospital on above:Order Comment: Specimen Type: BLOOD SPECIMEN Ordering Facility: [facility] Address: [address] [place], [place] [address]Performed By: #### 85424-3 #### [facility] CLIA [id number] [address] [place] [address] [place] AMERICACreatinine [Mass/Vol]0.69 mg/dLNormal0.58-0.96[facility] on above:Order Comment: Specimen Type: BLOOD SPECIMEN Ordering Facility: [facility] Address: [address] [place], [place] [address]Performed By: #### [id number] #### [facility] CLIA [id number] [address] [place] [address] [place] AMERICACreatinine and Glomerular filtration rate.predicted panel (S/P/Bld)116 mL/min/1.73m???Normal>=60[facility] on above:Order Comment: Specimen Type: BLOOD SPECIMEN Ordering Facility: [facility] Address: [address] [place], [place] [address]Result Comment: Estimated Glomerular Filtration Rate (eGFR) is calculated using the 2020 CKD-EPI cre atinine equation. This equation utilizes serum creatinine, sex, and age as parameters. The creatinine assay has traceable calibration to isotope dilution- mass spectrometry. Refer to KDIGO guidelines for clinical interpretation. In patients with unstable renal function, e.g. those with acute kidney injury, the eGFR may not accurately reflect actual GFR.Performed By: #### 92475-2 #### [facility] [place] [id number] [address] [place] [address] [place] AMERICAGlucose [Mass/Vol]91 mg/dL Ekbdzr66-00GmxqlyxmrDetwiler Memorial Hospital on above:Order Comment: Specimen Type: BLOOD SPECIMEN Ordering Facility: [facility] Address: [address] [place], [place] [address]Result Comment: The [employer] Diabetes Association (ADA) provides guidance for cutoff [...] Standards of Medical Care in Diabetes 2016, Japanese Diabetes Association. Diabetes Care. 2016.39(Suppl 1).Performed By: #### 32662-6 #### [facility] [place] [id number] [address] [place] [address] [place] AMERICAPotassium [Moles/Vol]4.3 mmol/LNormal3.7-5.1CDunlap Memorial Hospital on above:Order Comment: Specimen Type: BLOOD SPECIMEN Ordering Facility: [facility] Address: [address] [place], [place] [address]Performed By: #### 98355-1 #### [facility] [place] [id number] [address] [place] [address] [place] AMERICAProtein [Mass/Vol]7.3 g/dL Normal6.3-8.0[facility] on above:Order Comment: Specimen Type: BLOOD SPECIMEN Ordering Facility: [facility] Address: [address] [place], [place] [address]Performed By: #### 95877-4 #### [facility] CLIA [id number] [address] [place] [address] [place] AMERICASodium [Moles/Vol]139 mmol/L Nbbjbg233-818DjakefbpvDetwiler Memorial Hospital on above:Order Comment: Specimen Type: BLOOD SPECIMEN Ordering Facility: [facility] Address: [address] [place], [place] [address]Performed By: #### 18930-3 #### [facility] CLIA [id number] [address] [place] [address] [place] AMERICAUrea nitrogen [Mass/Vol]9 mg/dLNormal7-21[facility] on above:Order Comment: Specimen Type: BLOOD SPECIMEN Ordering Facility: [facility] Address: [address] [place], [place] [address]Performed By: #### 88466-7 #### [facility] CLIA [id number] [address] [place] [address] [place] AMERICAFerritin SerPl-mCncon 66-51-8441Mnguhwml [Mass/Vol]17.5 ng/gOIgnxkh92.7-205.1CDunlap Memorial Hospital on above:Order Comment: Specimen Type: BLOOD SPECIMENOrdering Facility: [facility] Address:[address] [place], [place] [address]Performed By: #### 2731-8, 31203-8, 6-4 ####[facility]IA [id number] [place] [address] [place] OF AMERICAIron and Iron binding capacity panelon 45-61-2790Qnwd [Mass/Vol]114 ug/cHOoncgv91-484FxsryxexaDetwiler Memorial Hospital on above:Order Comment: Specimen Type: BLOOD SPECIMENOrdering Facility: [facility] Address:[address] [place], [place] [address]Performed By: #### 2731-8, 43707-4, 2275-4 ####[facility]IA [id number] [place] [address] [place] AMERICAIron binding capacity [Mass/Vol] 360 ug/vPBvwlhk474-896WdnnanabpDetwiler Memorial Hospital on above:Order Comment: Specimen Type: BLOOD SPECIMENOrdering Facility: [facility] Address:[address] [place], [place] [address]Performed By: #### 2731-8, 08746-6, 2276-4 ####[facility] [id number] [place] [address] [place] AMERICAIron/TIBC [Molar ratio]31.7 % Vxhmqa62.0-57.0[facility] on above:Order Comment: Specimen Type: BLOOD SPECIMENOrdering Facility: [facility] Address:[address] [place], [place] [address]Performed By: #### 2731-8, 84867-6, 2276-4 ####[facility] [id number] [place] [address] [place] OF AMERICAPTH-Intact SerPl-mCncon 59-25-2392Bvpikwnsbi.intact [Mass/Vol]17 pg/jRTqoltn58-23VvknpqkspDetwiler Memorial Hospital on above:Order Comment: Specimen Type: BLOOD SPECIMENOrdering Facility: [facility] Address:[address] [place], [place] [address]Performed By: #### 2731-8, 62146-6, 2276-4 ####[facility] [id number] [place] [address] [place] AMERICACNOVon 77-29-5580OKDIGauvfl Visit ([facility] CASSIASHAZIA MALDONADO ([id number]) 1990 F Date Time Provider Department 07/25/24 3:00 PM TEVIN CARSON [facility] During your visit today, we recorded the following information about you: Pulse Blood pressure Weight 67/minute 122/72 83.8 kg Tevin Carson 07/25/2024 4:57 PM Signed [facility] Visit Assessment and Plan 1. Bipolar affective [...] appointment. She is scheduled to see a investigative shopper at for this. ROS: As per HPI. [...] Assessed Reason for Visi (more content not included)...NormalOhioHealth [facility] 70-24-5312DOIXUfcvvwwxi (RADMN) SHAZIA CHOU ([id number]) 1990 F Date Time Provider Department 07/13/24 HAWA TATE RADMN During your visit today, we recorded the [...] mg by mouth daily at bedtime. - zsojkuamitix-sou-viuh-FA-vit K (BARIATRIC MULTIVITAMINS) 45 mg iron- 800 [...] disorder [F41.0] 03/08/2024 Encounter Status:Closed by HAWA TATE on 07/13/24[facility] Breast - left diagnostic for implanton 45-19-2383RRUEZIIZLA: ULTRASOUND GUIDED BIOPSY Site 1: Successful ultrasound guided biopsy of the area at 1 o'clock, 15 cm from the nipple in the left breast with placement of a clip was successful. Waiting for pathology results. A final report will be issued when these become available. Interpreting Radiologist: Alexandra Son M.D. Electronically signed on: 07/11/2024 Plush Brusher: SERGIO Transcribe Date/Time: Jul 11 2024 8:53A Dictated by: ALEXANDRA SON MD This examination was interpreted and the report reviewed and electronically signed by: ALEXANDRA SON MD on Jul 11 2024 9:45AM [facility] DIVISION OF RADIOLOGY* * *Final Report* * * DATE OF EXAM: Jul 11 2024 9:17AM [facility] 0628 - LINDA GAMALIELG Moshe LEY LT / PROCEDURE REASON: Abnormal mammogram of left breast * * * * Physician Interpretation * * * * RESULT: [facility] [phone] [place] [phone] HISTORY: 33 year old patient presents for [...] which may obscure small masses. DIVISION OF RADIOLOGYProvider, [facility] [place] - 07/11/2024 * * *Final Report* * * DATE OF EXAM: Jul 11 2024 9:17AM [facility] 0628 - LINDA DIAG Moshe LEY LT / PROCEDURE REASON: Abnormal mammogram of left breast * * * * Physician Interpretation * * * * RESULT: [facility] [phone] [place] [phone] HISTORY: 33 year old patient presents for [...] Alexandra Son M.D. Electronically signed on: 07/11/2024 Plush Brusher: SERGIO Transcribe Date/Time: Jul 11 2024 8:53A Dictated by: ALEXANDRA SON MD This examination was interpreted and the report reviewed and electronically signed by: ALEXANDRA SON MD on Jul 11 2024 9:45AM [facility] HospitalRad[facility] Study observation (narrative)[facility] GAMALIELG W AV LTon 52-89-9905PPM MELVIN Mesa AV LT* * *Final Report* * * * * * SEE BOTTOM OF REPORT FOR ADDENDED TEXT * * * DATE OF EXAM: Jul 11 2024 9:17AM W 0628 - LINDA DIAG W AV LT / PROCEDURE REASON: Abnormal mammogram of left breast * * * * Physician Interpretation * * * * RESULT: [facility] [phone] [place] [address] - - - - - - - [...] Alexandra Son M.D. Electronically signed on: 07/11/2024 Plush Brusher: SERGIO Transcerasto Date/Time: Jul 11 2024 8:53A Dictated by: ALEXANDRA SON MD This examination was interpreted and the report reviewed and electronically signed by: ALEXANDRA SON MD on Jul 11 2024 9:45AM EST This document has been addended by: ALEXANDRA SON MD on Jul 13 2024 3:56PM EST [id number] Hospital US BIOPSY BREAST LTon 95-59-8519IIE US BIOPSY BREAST LT* * *Final Report* * * * * * SEE BOTTOM OF REPORT FOR ADDENDED TEXT * * * DATE OF EXAM: Jul 11 2024 9:15AM [facility]W 0597 - LINDA US BIOPSY BREAST LT / PROCEDURE REASON: Abnormal mammogram of left breast * * * * Physician Interpretation * * * * RESULT: [facility] [phone] [place] [address] - - - - - - - [...] Alexandra Son M.D. Electronically signed on: 07/11/2024 Plush Brusher: SERGIO Transcrialfonzo Date/Time: Jul 11 2024 8:52A Dictated by: ALEXANDRA SON MD This examination was interpreted and the report reviewed and electronically signed by: ALEXANDRA SON MD on Jul 11 2024 9:45AM EST This document has been addended by: ALEXANDRA SON MD on Jul 13 2024 3:56PM EST [id number] Health Panel Information Ordered By: Ccf Provider on 03-25-1689Aelotbqlm ClinicSURGICAL PATHOLOGYon 00-97-1446TQYP REPORTNormalCBellevue HospitalComment on above:Order Comment: Specimen Type: BLOOD SPECIMEN Ordering Facility: [facility] Address: [address] [place], [place] [address]Result Comment: Surgical Pathology Report Case: [id number] Authorizing Provider: Alexandra Son Collected: 07/11/2024 09:01 AM MD Nicole Ordering Location: Mammography Received: 07/11/2024 09:37 AM Pathologist: Mia Erwin MD Specimen: Breast, Left, Core Biopsy, Asymmetry 1:00 15 cm FN Ribbon clip Performed By: #### 04060-1 #### [facility] CLIA [id number] [address] [place], [place] [address]FINAL DIAGNOSISNormal [facility] on above:Order Comment: Specimen Type: BLOOD SPECIMEN Ordering Facility: [facility] Address: [address] [place], [place] [address]Result Comment: Left breast, 1:00, asymmetry, 15 cm FN, ribbon clip, needle core biopsy: - 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 JR 07/12/2024 Performed By: #### 31678-9 #### [facility] CLIA [id number] [address] [place] [address] PERFORMING LABNormal [facility] on above:Order Comment: Specimen Type: BLOOD SPECIMEN Ordering Facility: [facility] Address: [address] [place], [place] [address]Result Comment: Diagnostic interpretation performed at [facility], [address] [place] [address] CLIA# [id number] Lead Relay Tester: Jarred Canales M.D.Performed By: #### 11990-6 #### [facility] [id number] [address] [place] [address] [place] OF AMERICAGROSS DESCRIPTIONNormal Miami Valley HospitalComment on above:Order Comment: Specimen Type: BLOOD SPECIMEN Ordering Facility: [facility] Address: [address] [place], [place] [address]Result Comment: A. Breast, Left, Core Biopsy Received in formalin labeled [...] in one cassette. Gross examination performed at [address] 07/11/2024 5:14 PMPerformed By: #### 90478-1 #### [facility] [id number] [address] [place] [address] STATES [place] AMERICAUS Guidance for biopsy of Breast - lefton 94-00-2777IQCTIXKPGI: ULTRASOUND GUIDED BIOPSY Site 1: Successful ultrasound guided biopsy of the area at 1 o'clock, 15 cm from the nipple in the left breast with placement of a clip was successful. Waiting for pathology results. A final report will be issued when these become available. Interpreting Radiologist: Alexandra Son M.D. Electronically signed on: 07/11/2024 Plush Brusher: SERGIO Transcribe Date/Time: Jul 11 2024 8:52A Dictated by: ALEXANDRA SON MD This examination was interpreted and the report reviewed and electronically signed by: ALEXANDRA SON MD on Jul 11 2024 9:45AM [facility] DIVISION OF RADIOLOGY* * *Final Report* * * DATE OF EXAM: Jul 11 2024 9:15AM [facility] 0597 - LINDA US BIOPSY BREAST LT / PROCEDURE REASON: Abnormal mammogram of left breast * * * * Physician Interpretation * * * * RESULT: [facility] [phone] [place] [address] HISTORY: 33 year old patient presents for [...] which may obscure small masses. DIVISION OF RADIOLOGYProvider, [facility] [place] - 07/11/2024 * * *Final Report* * * DATE OF EXAM: Jul 11 2024 9:15AM [facility] 0597 - LINDA US BIOPSY BREAST LT / PROCEDURE REASON: Abnormal mammogram of left breast * * * * Physician Interpretation * * * * RESULT: [facility] [phone] [place] [phone] HISTORY: 33 year old patient presents for [...] Alexandra Son M.D. Electronically signed on: 07/11/2024 Plush Brusher: SERGIO Mathurrialfonzo Date/Time: Jul 11 2024 8:52A Dictated by: ALEXANDRA SON MD This examination was interpreted and the report reviewed and electronically signed by: ALEXANDRA SON MD on Jul 11 2024 9:45AM EST [facility] observation (narrative)[facility] Breast - bilateral diagnostic for implanton 07-05-2024* * *Final Report* * * DATE OF EXAM: Jul 04 2024 11:59AM W 0627 - LINDA DIAG W AV TANMAY [...] with no suspicious findings seen. DIVISION OF RADIOLOGYProvider, [facility] [place] - 07/05/2024 * * *Final Report* * * DATE OF EXAM: Jul 04 2024 11:59AM [facility]W 0627 - LINDA MELVIN LEY TANMAY / PROCEDURE REASON: Mass of [...] Abi Asif M.D. Electronically signed on: 07/05/2024 Plush Brusher: WILLIAM Transcribe Date/Time: Jul 05 2024 11:53A Dictated by: ABI ASIF MD This examination was interpreted and the report reviewed and electronically signed by: ABI ASIF MD on Jul 05 2024 11:58AM EST [facility] Panel Informationon 68-16-5996BIUVOTTNVJ: Finding 1: There is a palpable area [...] Abi Asif M.D. Electronically signed on: 07/05/2024 Plush Brusher: WILLIAM Transcribe Date/Time: Jul 05 2024 11:53A Dictated by: ABI ASIF MD This examination was interpreted and the report reviewed and electronically signed by: ABI ASIF MD on Jul 05 2024 11:58AM [facility] DIVISION OF RADIOLOGYNo Panel InformationOrdered By: Cc Provider on 07-05-2024 [facility] Breast - left limitedon 07-05-2024* * *Final Report* * * DATE OF [...] with no suspicious findings seen. DIVISION OF RADIOLOGYProvider, [facility] [place] - 07/05/2024 * * *Final Report* * * DATE OF EXAM: Jul 04 2024 12:12PM [facility] 0[address] [facility] BREAST [facility] LT / PROCEDURE REASON: Mass of upper [...] Abi Asif M.D. Electronically signed on: 07/05/2024 Plush Brusher: WILLIAM Transcribe Date/Time: Jul 05 2024 11:53A Dictated by: ABI ASIF MD This examination was interpreted and the report reviewed and electronically signed by: ABI ASIF MD on Jul 05 2024 11:58AM EST [facility] 36-47-4362HXFIBzklrd Visit ([facility]) SHAZIA CHOU ([id number]) 1990 F Date Time Provider Department 07/04/24 11:[address] [facility] During your visit today, we recorded the [...] old premenopausal female who presents to the [facility] today for evaluation of left [...] Test performed by chemiluminescent immunoassay. Performed at [facility],[address] [place], [place] [address] She takes a multivitamin daily. BMD: No PERSONAL BREAST HISTORY: Breast biopsy: No Breast cysts: No Breast surgery: No Breast cancer: No CANCER SURVEILLANCE: Mammograms: Date in [facility]: 12/09/23; results - Negative-Left breast only Breast MRI: Date in [facility]: 06/10/22; results - Negative Colonoscopy: [...] sensitive examination was dis (more content not included)...NormalMemorial Hospital DIAG W AV BILon 88-65-0707AHY MELVIN Mesa AV TANMAY* * *Final Report* * * DATE OF EXAM: Jul 04 2024 11:59AM SSW 0627 - LINDA MELVIN Mesa AV TANMAY / PROCEDURE REASON: Mass of [...] Abi Asif M.D. Electronically signed on: 07/05/2024 Plush Brusher: WILLIAM Transcribe Date/Time: Jul 05 2024 11:53A Dictated by: ABI ASIF MD This examination was interpreted and the report reviewed and electronically signed by: ABI ASIF MD on Jul 05 2024 11:58AM EST [id number] Hospital US BREAST LTD LTon [id number] US BREAST LTD LT* * *Final Report* * * DATE OF EXAM: Jul 04 2024 12:12PM [facility] 0593 - LINDA US BREAST LTD LT [...] Abi Asif M.D. Electronically signed on: 07/05/2024 Plush Brusher: WILLIAM Transcribe Date/Time: Jul 05 2024 11:53A Dictated by: ABI ASIF MD This examination was interpreted and the report reviewed and electronically signed by: ABI ASIF MD on Jul 05 2024 11:58AM EST [id number] Health Panel Informationon 40-76-7844Cnicfxqqh Study observation (narrative)[facility] CenterCNOVon 65-84-6147GRAHJxpzzz Visit ([facility]) SHAZIA CHOU ([id number]) 1990 F Date Time Provider Department 07/01/24 11:00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 HospitalComment on above:Performed By: #### VALERIO HAMILTON, FERI #### [address] [address] Sourcing Intern: Sharon Naylor.Neutrophil (Seg)7.68 k/uLNormal1.50-8.10 [facility] HospitalComment on above:Performed By: #### VALERIO HAMILTON, FERI #### [facility] CEIN [address] [place] [address] Sourcing Intern: Harpal Adair MDBasophils/100 WBC (Bld)1 %Normal0-2MSt. Mary's Medical CenterComment on above:Performed By: #### VALERIO HAMILTON, FERI #### [place] [address] Sourcing Intern: Harpal Adair MDEosinophils (Bld) [#/Vol]0.25 10*3/uLNormal 0.00-0.44[facility] HospitalComment on above:Performed By: #### VALERIO HAMILTON, FERI #### [facility] CEIN [address] [place] [address] Sourcing Intern: PAIGE Naylorosinophils/100 WBC (Bld)2 %Normal1-4[facility] HospitalComment on above:Performed By: #### VALERIO HAMILTON, FERI #### [address] [address] Sourcing Intern: Harpal Adair MDErythrocyte distribution width (RBC) [Ratio]18.6 %High11.8-14.4[facility] HospitalComment on above:Performed By: #### VALERIO HAMILTON, FERI #### [address] [address] Sourcing Intern: Harpal Adair MDHematocrit (Bld) [Volume fraction]36.7 %Normal 36.3-47.1MSt. Mary's Medical CenterComment on above:Performed By: #### VALERIO HAMILTON, FERI #### [address] [address] Sourcing Intern: Harpal Adair MDHemoglobin (Bld) [Mass/Vol]11.3 g/dLLow11.9-15.1 [facility] HospitalComment on above:Performed By: #### VALERIO HAMILTON, FERI #### [address] [address] Sourcing Intern: Harpal Aadir MDImmature granulocytes/100 WBC (Bld)0 %Normal0 [facility] HospitalComment on above:Performed By: #### VALERIO HAMILTON, FERI #### [address] [address] Sourcing Intern: Harpal Adair MDLymphocytes (Bld) [#/Vol]2.30 10*3/uLNormal 1.10-3.70[facility] HospitalComment on above:Performed By: #### VALERIO HAMILTON, FERI #### [address] [address] Sourcing Intern: Emily Naylormphocytes/100 WBC (Bld)21 %Wur38-79DgrntPromedica Defiance Regional HospitalComment on above:Performed By: #### VALERIO HAMILTON, FERI #### [facility] [address] [place] [address] Sourcing Intern: JERRI NaylorCH (RBC) [Entitic mass]28.4 vdUunyqr97.2-33.5 [facility] HospitalComment on above:Performed By: #### VALERIO HAMILTON, FERI #### [address] [address] Sourcing Intern: JERRI NaylorCHC (RBC) [Mass/Vol]30.8 g/vBWcxbay17.4-34.8 [facility] HospitalComment on above:Performed By: #### VALERIO HAMILTON, FERI #### [address] [address] Sourcing Intern: JERRI NaylorCV (RBC) [Entitic vol]92.2 dGDhlqcj93.6-102.9 [facility] HospitalComment on above:Performed By: #### VALERIO HAMILTON, FERI #### [address] [address] Sourcing Intern: JERRI Nayloronocytes (Bld) [#/Vol]0.77 10*3/uLNormal 0.10-1.20[facility] HospitalComment on above:Performed By: #### VALERIO HAMILTON, FERI #### [facility] CE[facility] [address] [place] [address] Sourcing Intern: JERRI Nayloronocytes/100 WBC (Bld)7 %Normal3-12[facility] HospitalComment on above:Performed By: #### ALFONSO CDP, FERI #### [address] [address] Sourcing Intern: Harpal Adair MDNeutrophil (Seg)69 %Kjxg00-54PrmiwPromedica Defiance Regional HospitalComment on above:Performed By: #### ALFONSO, CDP, FERI #### [facility] [address] [place] [address] Sourcing Intern: Harpal Adair MDNRBC Automated0.0 per 100 WBCNormal0.0[facility] HospitalComment on above:Performed By: #### ALFONSO CDP, FERI #### [facility] [address] [place] [address] Sourcing Intern: TORIE Naylorlatelet mean volume (Bld) [Entitic vol]11.4 fL Normal8.1-13.5[facility] HospitalComment on above:Performed By: #### VALERIO HAMILTON, FERI #### [facility] CE[facility] [address] [place] [address] Sourcing Intern: TORIE Naylorlatelets (Bld) [#/Vol]387 10*3/bTZfvykb196-432 [facility] HospitalComment on above:Performed By: #### VALERIO HAMILTON, FERI #### [facility] CE[facility] [address] [place] [address] Sourcing Intern: PATRIC NaylorBC (Bld) [#/Vol]3.98 10*6/uLNormal3.95-5.11 [facility] HospitalComment on above:Performed By: #### ALFONSO CDP, FERI #### [facility] CE[facility] [address] [place] [address] Sourcing Intern: EDIN Naylor morphology finding Nom (Bld)ANISOCYTOSIS PRESENTNormalPromedica Defiance Regional HospitalComment on above:Performed By: #### ALFONSO, CDP, FERI #### [facility] CEIN [address] [place] [address] Sourcing Intern: SHANNA NaylorBC (Bld) [#/Vol]11.1 10*3/uLNormal3.5-11.3[facility] Kentfield HospitalComment on above:Performed By: #### VALERIO HAMILTON FERI #### [facility] [address] [place] [address] Sourcing Intern: Harpal Adair MDFerritinon 02-71-4127Worjneoj [Mass/Vol]9 ng/mL Yhf10-838WxstnPromedica Defiance Regional HospitalComment on above:Result Comment: FERRITIN Reference Ranges: Adult Males 20 - 60 years: 30 - 400 ng/mL Adult females 17 - 60 years: 13 - 150 ng/mL Adults greater than 60 years: no established reference range Pediatrics: no established reference rangePerformed By: #### VALERIO HAMILTON FERI #### [facility] CEIN [address] [place] [address] Sourcing Intern: Lani Naylor Binding Cap.on 01-13-2024% Fe Saturation9 % Hmb65-22MaudvPromedica Defiance Regional HospitalComment on above:Performed By: #### VALERIO HAMILTON FERI #### [facility] CE[facility] [address] [place] [address] Sourcing Intern: Shannan Naylorn [Mass/Vol]37 ug/oBXpbojk39-786BkpdwPromedica Defiance Regional HospitalComment on above:Performed By: #### VALERIO HAMILTON FERI #### [facility] CE[facility] [address] [place] [address] Sourcing Intern: Harpal Adair MDTotal Fe Binding Mfr275 ug/eGFbkfbi442-872CjpcfPromedica Defiance Regional HospitalComment on above:Performed By: #### VALERIO HAMILTON, FERI #### [facility] [address] [place] [address] Sourcing Intern: Harpal Adair MDUnbound Fe Bind Ijc643 ug/rYBpyt434-244AlwuvPromedica Defiance Regional HospitalComment on above:Performed By: #### FEBC, CDP, FERI #### [facility] [address] [place] [address] Sourcing Intern: Zeina Naylor [id number] ([facility]) SHAZIA CHOU ([id number]) 1990 F Date Time Provider Department 01/05/24 ELIA BAIRES [facility] During your visit today, we recorded the [...] 60 mg by mouth once daily. - ievhfdzmqcta-uzf-awdq-FA-vit K (BARIATRIC MULTIVITAMINS) 45 mg iron- 800 [...] days. Encounter Status:Closed by ELIA BAIRES on 01/05/24NormalCBellevue HospitalTOXICOLOGY SCRN W/CONF,URINEon 57-52-5407Nrrqhjfzqmeg Confirm (U) [Mass/Vol]NegativeNegativeGlennallen ClinicComment on above:Cutoff threshold at 1000 ng/mL.Barbiturates UrineNegativeNegativeGlennallen ClinicComment on above: Cutoff threshold at 200 ng/mL.Benzodiazepines UrineNegativeNegativeGlennallen ClinicComment on above:Cutoff threshold at 200 ng/mL.Cannabinoids Screen Ql (U) Sent for confirmationAbnormalNegativeGlennallen ClinicComment on above:Cutoff threshold at 50 ng/mL.Cocaine Ql (U)NegativeNegativeGlennallen ClinicComment on above:Cutoff threshold at 300 ng/mL.Ethanol (U) [Mass/Vol]mg/dLNINF - 11 mg/dL [facility] ClinicInterpretation and review of laboratory resultsAbnormalCleveland ClinicOpiates Screen Ql (U)NegativeNegativeUniversity Hospitals Lake West Medical Centerment on above: Cutoff threshold at 300 ng/mL.oxyCODONE cutoff Screen (U) [Mass/Vol]Negative NegativeAdena Pike Medical CenterComment on above:Cutoff threshold at 100 ng/mL. Phencyclidine Ql (U)NegativeNegativeAdena Pike Medical CenterComment on above:Cutoff threshold at 25 ng/mL.Immunoassay screen only. Cross reactivity with other substances can occur with immunoassay screening. Detection of any drug(s) in this urine toxicology panel is presumptive only. These tests are for medical purposes only and should not be used for compliance monitoring, legal, or forensic use.[facility] Memorial HospitalCANNABINOID CONF, URon 01-04-2024 Cannabinoids Confirm (U) [Mass/Vol]153 ng/mLHigh<16[facility] Comment on above:Order Comment: Specimen Type: URINE SPECIMENOrdering Facility: [facility] Address:[address] [place], [place] [address]Result Comment: Tetrahydrocannabinol carboxylic acid (THCA) is a metabolite of elxoz-7-injqauqjurugflmoxvbk which is the main active component of marijuana. Presence of THCA indicates use of marijuana.Performed By: #### KARLIEFU ####[facility] [id number] [address] ([facility])NormalBlanchard Valley Health System Blanchard Valley Hospitalment on above:Order Comment: Specimen Type: URINE SPECIMENOrdering Facility: [facility] Address:[address] [place], [place] [address]Result Comment: This test is for medical use only. This test was developed and its performance characteristics determined by [facility]'s [facility] Pathology and Laboratory Medicine [place] (-PLMI). It has not been cleared or approved by the FDA. -[facility] is regulated under CLIA as qualified to perform high-complexity testing. Thistest is used for clinical purposes. It should not be regarded as investigational or for research.Performed By: #### MARCCONFU ####[facility] LABCLIA [id number] [address] [address] [place] CNOVmaximiliano 99-93-1038QIUKTmztte Visit ([facility]) SHAZIA CHOU ([id number]) 1990 F Date Time Provider Department 01/04/24 9:20 AM ELIA BAIRES [facility] During your visit today, we recorded the [...] She says that she is originally from [facility] however came up to here today [...] to establish with a new psychiatrist at [facility] [place]. She also sees a counselor weekly. Current [...] 4) Physical in 1 (more content not included)...NormalMiami [facility] Hospital SPECIMEN VALIDITY, URINEon 89-34-5692TYDJHPYA,URINE<10Normal<50[facility] on above:Order Comment: Specimen Type: URINE SPECIMENOrdering Facility: [facility] Address:[address] [place], [place] [address]Performed By: #### [id number] ####[facility] LABCLIA [id number] [place] [address] [place] CREATININE,URINE33.7 mg/gUNizluq61.0-300.0[facility] on above:Order Comment: Specimen Type: URINE SPECIMENOrdering Facility: [facility] Address:[address] [place], [place] [address]Performed By: #### [id number] ####[facility] LABCLIA [id number] [place] [address] [place] AMERICANITRITES,URINE<50 Normal<500[facility] on above:Order Comment: Specimen Type: URINE SPECIMENOrdering Facility: [facility] Address:[address] [place], [place] [address]Performed By: #### [id number] ####[facility] LABCLIA [id number] [place] [address] [place] [facility] MARYMOUNT HOSPITALOXIDANTS,URINE70 mg/LNormal<200[facility] on above:Order Comment: Specimen Type: URINE SPECIMENOrdering Facility: [facility] Address:[address] [place], [place] [address]Performed By: #### [id number] ####[facility] LABCLIA [id number] [place] [address] [place] pH (U)5.6 [pH]Normal4.5-8.0[facility] on above:Order Comment: Specimen Type: URINE SPECIMENOrdering Facility: [facility] Address:[address] [place], [place] [address]Performed By: #### [id number] ####[facility] LABIA [id number] [place] [address] [place] AMERICASPEC GRAVITY,UR1.019 Normal1.003-1.035[facility] on above:Order Comment: Specimen Type: URINE SPECIMENOrdering Facility: [facility] Address:[address] [place], [place] [address]Performed By: #### [id number] ####[facility] LABCLIA [id number] [place] [address] [place] AMERICASPECIMEN VALIDITY QUALITYSpecimen quality results within acceptable limitsNormalCDunlap Memorial Hospital on above:Order Comment: Specimen Type: URINE SPECIMENOrdering Facility: [facility] Address:[address] [place] [address] Performed By: #### [id number] ####[facility] LABCLIA [id number] [place] [address] [place] TOXICOLOGY SCRN W/CONF,URINEon 28-53-9644Yhrdssblvjze Confirm (U) [Mass/Vol] NegativeNormalNegativeDetwiler Memorial Hospital on above:Order Comment: Specimen Type: URINE SPECIMENOrdering Facility: [facility] Address:[address] [place] [address] Comment: Cutoff threshold at 1000 ng/mL.Performed By: #### [id number] ####[facility] LABCLIA [id number] [place] [address] [place] BARBITURATES, URINENegativeNormalNegativeDetwiler Memorial Hospital on above:Order Comment: Specimen Type: URINE SPECIMENOrdering Facility: [facility] Address:[address] [place] [address] Comment: Cutoff threshold at 200 ng/mL.Performed By: #### [id number] ####[facility] LABCLIA [id number] [place] [address] [place] AMERICABENZODIAZEPINES, URNegativeNormalNegativeDetwiler Memorial Hospital on above:Order Comment: Specimen Type: URINE SPECIMENOrdering Facility: [facility] Address:[address] [place] [address] Comment: Cutoff threshold at 200 ng/mL.Performed By: #### UTOXRF ####[facility] LABCLIA [id number] [place] [address] [place] AMERICACannabinoids Screen Ql (U)Sent for confirmationAbnormalNegativeDetwiler Memorial Hospital on above:Order Comment: Specimen Type: URINE SPECIMENOrdering Facility: [facility] Address:[address] [place], [place] [address]Result Comment: Cutoff threshold at 50 ng/mL.Performed By: #### UTOXRF ####[facility] LABCLIA [id number] [place] [address] [place] AMERICACocaine Ql (U)NegativeNormalNegativeMiami Valley Hospital Comment on above:Order Comment: Specimen Type: URINE SPECIMENOrdering Facility: [facility] Address:[address] [place], [place] [address]Result Comment: Cutoff threshold at 300 ng/mL.Performed By: #### UTOXRF ####[facility] LABIA [id number] [place] [address] [place] AMERICAEthanol (U) [Mass/Vol]<11Normal<11CDunlap Memorial Hospital on above:Order Comment: Specimen Type: URINE SPECIMENOrdering Facility: [facility] Address:[address] [place], [place] [address]Performed By: #### UTOXRF ####[facility] LABIA [id number] [place] [address] [place] Opiates Screen Ql (U)NegativeNormalNegativeDetwiler Memorial Hospital on above:Order Comment: Specimen Type: URINE SPECIMENOrdering Facility: [facility] Address:[address] [place], [place] [address]Result Comment: Cutoff threshold at 300 ng/mL.Performed By: #### UTOXRF ####[facility] LABIA [id number] [address] STATES OF [facility] HOSPITALoxyCODONE cutoff Screen (U) [Mass/Vol]NegativeNormal NegativeDetwiler Memorial Hospital on above:Order Comment: Specimen Type: URINE SPECIMENOrdering Facility: [facility] Address:[address] [place], [place] [address]Result Comment: Cutoff threshold at 100 ng/mL. Performed By: #### UTOXRF ####[facility] LABIA [id number] [place] [address] [place] Phencyclidine Ql (U)NegativeNormalNegativeDetwiler Memorial Hospital on above:Order Comment: Specimen Type: URINE SPECIMENOrdering Facility: [facility] Address:[address] [place], [place] [address]Result Comment: Cutoff threshold at 25 ng/mL.Performed By: #### UTOXRF ####[facility] LABCLIA [id number] [place] [id number] [place] OF AMERICAED Noteon 20-93-4080ZO Note [id number]#1.00TIFFNormalUniversity Hospitals St. John Medical CenterActivated partial thromboplastin time (aPTT) in platelet poor plasma by coagulation aOrdered By: Marii Christiansen on 22-33-8232pSAQ Coag (PPP) [Time]28.8 s25.1-36.5FCleveland ClinicComment on above:A hematocrit value greater than 55% may lead to inaccurate results in coagulation testing. Patients having hematocrit values >55% require a special collection tube for coagulation studies. Please contact the laboratory at [phone] for redraw instructions. Basophils Auto (Bld) [#/Vol]Ordered By: Marii Christiansen on 03-17-7078Qbrydewvi (Bld) [#/Vol]0.1 10*3/uL0.0-0.2FCleveland ClinicBasophils/100 WBC Auto (Bld)Ordered By: Marii Christiansen on 71-36-6661Lgamcdihk/100 WBC (Bld)1.0 %.[facility] Memorial HospitalCalcium [Mass/volume] in Serum or Plasma Ordered By: Marii Christiansen on 03-22-7655Lvqqjtj [Mass/Vol]9.3 mg/dL8.6-10.3 [facility] HospitalCarbon dioxide, total [Moles/volume] in Serum or PlasmaOrdered By: Marii Christiansen on 05-08-2613VC3 [Moles/Vol]26.2 mmol/L 21.0-31.0[facility] HospitalChloride [Moles/volume] in Serum or PlasmaOrdered By: Marii Christiansen on 96-69-3977Hggrxvjy [Moles/Vol]108 mmol/L 98-107Mer[facility] Memorial HospitalChoriogonadotropin.beta subunit [Units/volume] in Serum or PlasmaOrdered By: Marii Christiansen on 12-10-2023 HCG.beta subunit QnNegativeMercy Memorial HospitalCreatine kinase [Enzymatic activity/volume] in Serum or PlasmaOrdered By: Marii Christiansen on 47-18-5338MZ [Catalytic activity/Vol]90 U/O00-312QjvqnfnzwMercy Memorial HospitalCreatinine [Mass/volume] in Serum or PlasmaOrdered By: Marii Christiansen on 27-11-0371Gtjsczkpvz [Mass/Vol]0.63 mg/dL0.60-1.20[facility] HospitalEosinophils Auto (Bld) [#/Vol]Ordered By: Marii Christiansen on 12-10-2023 Eosinophils (Bld) [#/Vol]0.1 10*3/uL0.0-0.45[facility] Eosinophils/100 WBC Auto (Bld)Ordered By: Marii Christiansen on 12-10-2023 Eosinophils/100 WBC (Bld)1.7 %.[facility] Memorial HospitalErythrocyte distribution width Auto (RBC) [Ratio]Ordered By: Marii Christiansen on 12-10-2023 Erythrocyte distribution width (RBC) [Ratio]18.2 %11.9-15.3FCleveland ClinicGlucose [Mass/volume] in Serum or PlasmaOrdered By: Marii Christiansen on 87-76-7643Fsuvfvw [Mass/Vol]84 mg/vC18-202MrytiafkpMercy Memorial Hospital Comment on above:ADA recommended reference rangeRandom Glucose Reference Range is dependent on time and content of last meal. Glucose of more than 200 mg/dL in a nonstressed, ambulatory subject supports the diagnosisof Diabetes Mellitus. Hematocrit Auto (Bld) [Volume fraction]Ordered By: Marii Christiansen on 12-10-2023 Hematocrit (Bld) [Volume fraction]34.4 %34.0-46.4FCleveland ClinicHemoglobin [Mass/volume] in BloodOrdered By: Marii Christiansen on 12-10-2023 Hemoglobin (Bld) [Mass/Vol]11.2 g/dL11.8-15.4FCleveland Clinic INR in Platelet poor plasma by Coagulation assayOrdered By: Marii Christiansen on 23-72-3127LRI Coag (PPP) [Relative time]1.0 {INR}[facility] Memorial HospitalComment on above:INR Therapeutic Range A) Pre- and Peroperative OAT started two weeks before surgery. NOT HIP SURGERY: 1.5 - 2.5 HIP SURGERY: 2 - 3B) Primary and secondary prevention of venous THROMBOSIS: 2 - 3C) Active venous thrombosis, pulmonary embolismand prevention of recurrent venous thrombosis: 2 - 3D) Prevention of arterial thromboembolismincluding patients with mechanical heart valves: 3 - 4.5Leukocytes [#/volume] corrected for nucleated erythrocytes in Blood by Automated counOrdered By: Marii Christiansen on 61-92-9295QBQ corrected for nucl RBC Auto (Bld) [#/Vol]7.1 10*3/uL3.8-11.6FCleveland ClinicLymphocytes Auto (Bld) [#/Vol]Ordered By: Marii Christiansen on 12-10-2023 Lymphocytes (Bld) [#/Vol]1.6 10*3/uL1.00-4.8[facility] Lymphocytes/100 WBC Auto (Bld)Ordered By: Marii Christiansen on 12-10-2023 Lymphocytes/100 WBC (Bld)21.9 %.[facility] Memorial HospitalMCH Auto (RBC) [Entitic mass]Ordered By: Marii Christiansen on 86-42-8847YEF (RBC) [Entitic mass] 28.8 pg24.7-34.3FCleveland ClinicMCHC Auto (RBC) [Mass/Vol] Ordered By: Marii Christiansen on 57-55-8468DRRY (RBC) [Mass/Vol]32.5 g/dL32.0-35.0 [facility] HospitalMCV Auto (RBC) [Entitic vol]Ordered By: Marii Christiansen on 61-65-5829YOR (RBC) [Entitic vol]88.7 nG90-016NqujpnyfzMercy Memorial HospitalMagnesium [Mass/volume] in Serum or PlasmaOrdered By: Marii Christiansen on 96-62-5673Lueuivxue [Mass/Vol]1.9 mg/dL1.9-2.7FCleveland ClinicMonocyte distribution width [Entitic volume] in Blood by Automated Ordered By: Marii Christiansen on 88-63-3722Nurlcotf distribution width Auto (Bld) [Entitic vol]16.94 %0.00-20.00[facility] Memorial HospitalMonocytes Auto (Bld) [#/Vol]Ordered By: Marii Christiansen on 99-95-3946Gdiqcyhcp (Bld) [#/Vol]0.5 10*3/uL0.0-0.8Mer[facility] Memorial HospitalMonocytes/100 WBC Auto (Bld) Ordered By: Marii Christiansen on 25-66-5107Vuyzennfv/100 WBC (Bld)6.4 %.[facility] Memorial HospitalNatriuretic peptide B [Mass/Vol]Ordered By: Marii Christiansen on 22-81-4262Nclslhhhlkv peptide B (Bld) [Mass/Vol]12.0 pg/mL5-100 [facility] HospitalNeutrophils Auto (Bld) [#/Vol]Ordered By: Marii Christiansen on 17-54-6135Fpqghvwjdxk (Bld) [#/Vol]4.9 10*3/uL1.8-7.7FCleveland ClinicNeutrophils/100 WBC Auto (Bld)Ordered By: Marii Christiansen on 70-39-9318Mdlolqatcjc/100 WBC (Bld)69.0 %.[facility] No Panel InformationOrdered By: Marii Christiansen on 13-17-3111Cvtetfhbu GFR (CKD-EPI)> 60.0 mL/MinMercy Memorial HospitalPharmacy Creatinine Clearance (Zpoe612.76Mer[facility] Memorial HospitalNucleated erythrocytes [Presence] in Blood by Automated countOrdered By: Marii Christiansen on 12-10-2023 Nucleated RBC Auto Ql (Bld)0.1 /100{WBC}0-0.5FC[facility] Clinic Phosphate [Mass/volume] in Serum or PlasmaOrdered By: Marii Christiansen on 84-15-7203Izedzljeu [Mass/Vol]3.7 mg/dL2.5-4.5FC[facility] Clinic Platelet mean volume Auto (Bld) [Entitic vol]Ordered By: Marii Christiansen on 14-21-4727Mafyglbi mean volume (Bld) [Entitic vol]9.2 fL6.3-10.7FCleveland ClinicPlatelets Auto (Bld) [#/Vol]Ordered By: Marii Christiansen on 19-84-8419Sfagwbpbt (Bld) [#/Vol]331 10*3/iT207-487QnymrqjouMercy Memorial HospitalPotassium [Moles/volume] in Serum or PlasmaOrdered By: Marii Christiansen on 40-65-4969Ydsdnxwds [Moles/Vol]4.0 mmol/L3.5-5.1FCleveland ClinicProthrombin time (PT)Ordered By: Marii Christiansen on 84-26-9244BI Coag (PPP) [Time]11.3 s9.0-12.9Mer[facility] Memorial HospitalComment on above:A hematocrit value greater than 55% may lead to inaccurate results in coagulation testing. Patientshaving hematocrit values >55% require a special collection tube for coagulation studies. Please contact the laboratory at [phone] for redraw instructions.RBC Auto (Bld) [#/Vol]Ordered By: Marii Christiansen on 58-31-3623CSQ (Bld) [#/Vol]3.88 10*6/uL3.60-5.00Mary Rutan Hospitalerum or plasma anion gap determinationOrdered By: Marii Christiansen on 46-16-9538Cnjto gap [Moles/Vol]9.8 mmol/L6.0-15.0Mary Rutan Hospitalodium [Moles/volume] in Serum or PlasmaOrdered By: Marii Christiansen on 92-84-7247Bfkihw [Moles/Vol]140 mmol/X520-289VmbzkuvxfMercy Memorial Hospital Thyrotropin [Units/volume] in Serum or PlasmaOrdered By: Marii Christiansen on 53-89-8610UTR Qn0.61 m[IU]/L0.45-5.33Mer[facility] Memorial HospitalThyroxine (T4) free [Mass/volume] in Serum or PlasmaOrdered By: Marii Christiansen on 10-68-4685Bnoh T4 [Mass/Vol]0.82 ng/dL0.61-1.12[facility] Troponin I.cardiac [Mass/volume] in Serum or Plasma by Detection limit <= 0.01 ng/Ordered By: Marii Christiansen on 43-28-7560Dwusgzzo I.cardiac DL <= 0.01 ng/mL [Mass/Vol]< 2.3 pg/mL0.0-15.0[facility] Memorial HospitalUrea nitrogen [Mass/volume] in Serum or PlasmaOrdered By: Marii Christiansen on 86-95-5515Xjby nitrogen [Mass/Vol]14 mg/dL7-25Mer[facility] Memorial HospitalWBC Auto (Bld) [#/Vol]Ordered By: Marii Christiansen on 34-56-8870ANM (Bld) [#/Vol]7.1 10*3/uL 3.8-11.6FCleveland ClinicConsent for Treatmenton 12-09-2023 Consent for [id number]#1.00TIFFNormal [facility] Medical CenterMA Mamm Diag w/CAD if perf and 3D LTon 28-09-3797IB Mamm Diag w/CAD if perf and 3D LTExam Date/Time: 12/09/2023 09:39 EDT Reason for Exam: [...] very important to your health. The current [employer] and National Comprehensive Cancer [...] Mychal Cabezas M.D. Transcribed by: MARCO Technologist: [facility] Assessment: BI-RADS Category 1-Negative Recommendation: Normal interval follow-upMemorial Health SystemUS Breast Unilateral Lt Completeon 00-75-7291DH Breast Unilateral Lt CompleteExam Date/Time: 12/09/2023 10:07 EDT Reason for Exam: N63.21 Report PLEASE REFER TO THE MAMMOGRAM REPORT. Ordering Provider: Jennie Durand FINAL REPORT Dictated: 12/09/2023 4:28 pm Mychal Cabezas M.D. Signed (Electronic Signature): 12/09/2023 4:28 pm Signed by: Mychal Cabezas M.D. Transcribed by: MARCO Technologist: [facility] HospitalPhysician Orderon 75-31-9133Kitizqfpl Order [id number]#1.00TIFFMemorial Health SystemCT ABDOMEN PELVIS W IV CONTRASTon 68-06-6865SI ABDOMEN PELVIS W IV CONTRASTEXAMINATION: CT ABDOMEN PELVIS W IV CONTRAST, 10/23/2023 [...] Signed by: Jacob Dillon DO 10/25/23 Final resultNormalMercy Merit Health [facility] panel Auto (Bld)on 08-31-2023 Erythrocyte distribution width (RBC) [Ratio]14.7 %Qdxhec90.5-15.0Falahey hospital & medical center HospitalComment on above:Order Comment: Specimen Type: BLOOD SPECIMEN [facility]ing Facility[facility] Address: [address] [place], [place] [address], [place] [address]Performed By: #### [id number] #### [facility] CLIA [id number] [place] [address] [place] AMERICAHematocrit (Bld) [Volume fraction] 36.9 %Qtfaxz60.0-46.0[facility]ala[facility] & medical center HospitalComment on above:Order Comment: Specimen Type: BLOOD SPECIMEN [facility]ing Facility: [facility] Address: [address] [place], [place] [address]Performed By: #### 05551-7 #### [facility] CLIA [id number] STREETHemoglobin (Bld) [Mass/Vol]11.7 g/dL Nogshu74.5-15.5Fairmer[facility] [address] HospitalComment on above:Order Comment: Specimen Type: BLOOD SPECIMEN [facility]ing Facility: [facility] Address: [address] [place], [place] [address]Performed By: #### 42268-9 #### [facility] CLIA [id number] [address] [place], [place] [address]H (RBC) [Entitic mass]29.8 pg Iqodii72.0-34.0[facility] HospitalComment on above:Order Comment: Specimen Type: BLOOD SPECIMEN [facility]ing Facility[facility] Address: [address] [place], [place] [address]Performed By: #### 35289-6 #### [facility] CLIA [id number] [address] [place], [place] [address]MCHC (RBC) [Mass/Vol]31.7 g/dLNormal 30.5-36.0[facility] HospitalComment on above:Order Comment: Specimen Type: BLOOD SPECIMEN [facility]ing Facility[facility] Address: [address] [place], [place] [address]Performed By: #### 09238-9 #### [facility] CLIA [id number] [place], [place] [address]V (RBC) [Entitic vol]93.9 fLNormal 80.0-100.0[facility] HospitalComment on above:Order Comment: Specimen Type: BLOOD SPECIMEN [facility]ing Facility: [facility] Address: [address] [place], [place] [address]Performed By: #### 09155-8 #### [facility] CLIA [id number] [address] [place], [place] [address]ucleated RBC (Bld) [#/Vol]10*3/uL Normal<0.01Falahey hospital & medical center HospitalComment on above:Order Comment: Specimen Type: BLOOD SPECIMEN [facility] [facility] Address: [address] [place], [place] [address]Performed By: #### 03203-0 #### [facility] CLIA [id number] [address] [place] [address] [place] OF AMERICAPlatelet mean volume (Bld) [Entitic vol]11.1 fLNormal9.0-12.7[facility] HospitalComment on above:Order Comment: Specimen Type: BLOOD SPECIMEN Ordering Facility: [facility] Address: [address] [place], [place] [address]Performed By: #### 61067-8 #### [facility] CLIA [id number] [address] [place] [address] [place] AMERICAPlatelets (Bld) [#/Vol]297 10*3/uL Keepne188-219Uvqefhli HospitalComment on above:Order Comment: Specimen Type: BLOOD SPECIMEN [facility]ing Facility[facility] Address: [address] [place], [place] [address]Performed By: #### 37202-5 #### [facility] CLIA [id number] [address] [place] [address] [place] AMERICARBC (Bld) [#/Vol]3.93 10*6/uLNormal 3.90-5.20[facility] HospitalComment on above:Order Comment: Specimen Type: BLOOD SPECIMEN Ordering Facility: [facility] Address: [address] [place], [place] [address]Performed By: #### 04053-3 #### [facility] CLIA [id number] [address] [place] [address] [place] OF AMERICAWBC (Bld) [#/Vol]6.82 10*3/uLNormal 3.70-11.00[facility] HospitalComment on above:Order Comment: Specimen Type: BLOOD SPECIMEN Ordering Facility[facility] Address: [address] [place], [place] [address]Performed By: #### 02479-5 #### [facility] CLIA [id number] [address] [place] [address] [place] AMERICAComprehensive metabolic 2000 panelon 33-36-9855Rrtpggq [Mass/Vol]4.4 g/dLNormal3.9-4.9[facility] HospitalComment on above:Order Comment: Specimen Type: BLOOD SPECIMEN [facility]ing Facility[facility] Address: [address] [place], [place] [address]Performed By: #### AROUL, 13594-5 #### [facility] CLIA [id number] [address] [place] [address] [place] AMERICAALP [Catalytic activity/Vol]75 U/L Dfjsbt13-390Msdehplj HospitalComment on above:Order Comment: Specimen Type: BLOOD SPECIMEN [facility]ing Facility[facility] Address: [address] [place], [place] [address]Performed By: #### RAOUL, 96041-2 #### [facility] CLIA [id number] [address] [place] [address] [place] AMERICAALT [Catalytic activity/Vol]16 U/L Normal7-38[facility]ena HospitalComment on above:Order Comment: Specimen Type: BLOOD SPECIMEN [facility]ing Facility[facility] Address: [address] [place], [place] [address]Performed By: #### RAOUL, 56009-3 #### [facility] CLIA [id number] [address] [place] [address] [place] AMERICAAnion gap [Moles/Vol]11 mmol/LNormal 9-18[facility] HospitalComment on above:Order Comment: Specimen Type: BLOOD SPECIMEN Ordering Facility[facility] Address: [address] [place], [place] [address]Performed By: #### RAOUL, 57788-7 #### [facility] CLIA [id number] [address] [place] [address] [place] AMERICAAST [Catalytic activity/Vol]21 U/L Ozxoid09-76Rdikboyp HospitalComment on above:Order Comment: Specimen Type: BLOOD SPECIMEN [facility]ing Facility[facility] Address: [address] [place], [place] [address]Performed By: #### RAOUL, #### [facility] CLIA [id number] [address] [place] [address] [place] AMERICABilirubin [Mass/Vol]0.2 mg/dLNormal 0.2-1.3[facility] HospitalComment on above:Order Comment: Specimen Type: BLOOD SPECIMEN [facility]ing Facility[facility] Address: [address] [place], [place] [address]Performed By: #### RAOUL, #### [facility] CLIA [id number] [address] [place] [address] [place] AMERICACalcium [Mass/Vol]9.7 mg/dLNormal 8.5-10.2[facility] HospitalComment on above:Order Comment: Specimen Type: BLOOD SPECIMEN Ordering Facility[facility] Address: [address] [place], [place] [address]Performed By: #### RAOUL, #### [facility] CLIA [id number] [address] [place] [address] [place] AMERICAChloride [Moles/Vol]106 mmol/LHigh 97-105[facility] HospitalComment on above:Order Comment: Specimen Type: BLOOD SPECIMEN [facility]ing Facility[facility] Address: [address] [place], [place] [address]Performed By: #### RAOUL, #### [facility] CLIA [id number] [address] [place] [address] [place] AMERICACO2 [Moles/Vol]25 mmol/ASkoixl00-51 [facility] HospitalComment on above:Order Comment: Specimen Type: BLOOD SPECIMEN [facility]ing Facility[facility] Address: [address] [place], [place] [address]Performed By: #### RAOUL, #### [facility] CLIA [id number] [address] [place] [address] [place] AMERICACreatinine [Mass/Vol]0.55 mg/dLLow 0.58-0.96[facility] HospitalComment on above:Order Comment: Specimen Type: BLOOD SPECIMEN Ordering Facility[facility] Address: [address] [place], [place] [address]Performed By: #### RAOUL, 28361-6 #### [facility] CLIA [id number] [address] [place] [address] [place] AMERICACreatinine and Glomerular filtration rate.predicted panel (S/P/Bld)124 mL/min/1.73m???Normal>=60[facility] Comment on above:Order Comment: Specimen Type: BLOOD SPECIMEN Ordering Facility[facility] Address: [address] [place], [place] [address]Result Comment: Estimated Glomerular Filtration Rate (eGFR) is calculated using the 2020 CKD-EPI cre atinine equation. This equation utilizes serum creatinine, sex, and age as parameters. The creatinine assay has traceable calibration to isotope dilution- mass spectrometry. Refer to KDIGO guidelines for clinical interpretation. In patients with unstable renal function, e.g. those with acute kidney injury, the eGFR may not accurately reflect actual GFR.Performed By: #### RAOUL, 29370-2 #### [facility] CLIA [id number] [address] [place] [address] [place] AMERICAGlucose [Mass/Vol]93 mg/dLNormal 74-99[facility] HospitalComment on above:Order Comment: Specimen Type: BLOOD SPECIMEN Ordering Facility[facility] Address: [address] [place], [place] [address]Result Comment: The [place] Diabetes Association (ADA) provides guidance for cutoff [...] Standards of Medical Care in Diabetes 2016, Japanese Diabetes Association. Diabetes Care. 2016.39(Suppl 1).Performed By: #### RAOUL, 65977-0 #### [facility] CLIA [id number] [place] [address] [place] AMERICAPotassium [Moles/Vol]4.7 mmol/L Normal3.7-5.1[facility] HospitalComment on above:Order Comment: Specimen Type: BLOOD SPECIMEN [facility] Address: [address] [place], [place] [address]Performed By: #### RAOUL, 40597-2 #### [facility] CLIA [id number] [address] [place] [address] [place] AMERICAProtein [Mass/Vol]7.3 g/dLNormal 6.3-8.0[facility] HospitalComment on above:Order Comment: Specimen Type: BLOOD SPECIMEN [facility] Address: [address] [place], [place] [address]Performed By: #### RAOUL, #### [facility] CLIA [id number] [address] [place] [address] [place] AMERICASodium [Moles/Vol]142 mmol/LNormal 136-144[facility] HospitalComment on above:Order Comment: Specimen Type: BLOOD SPECIMEN [facility]ing [facility] Address: [address] [place], [place] [address]Performed By: #### RAOUL, #### [facility] CLIA [id number] [address] [place] [address] [place] AMERICAUrea nitrogen [Mass/Vol]9 mg/dL Normal7-21[facility] HospitalComment on above:Order Comment: Specimen Type: BLOOD SPECIMEN [facility] Address: [address] [place], [place] [address]Performed By: #### RAOUL, 88707-6 #### [facility] CLIA [id number] [address] [place] [address] [place] OF AMERICALIPID PANEL, NONFASTINGon 08-31-2023 Cholesterol [Mass/Vol]154 mg/dLNormal<200[facility] HospitalComment on above:Order Comment: Specimen Type: BLOOD SPECIMEN [facility] Address: [address] [place], [place] [address]Result Comment: <200 mg/dL, Desirable 200-239 mg/dL, Borderline high >239 mg/dL, HighPerformed By: #### LIPMARTHA, 01947-6 #### [facility] CLIA [id number] [address] [place] [address] OF [facility] HOSPITALHDL CHOLESTEROL, NF69 mg/dLNormal>39 [facility] HospitalComment on above:Order Comment: Specimen Type: BLOOD SPECIMEN Ordering [facility] Address: [address] [place] [address] Comment: 40-59 mg/dL, Acceptable >59 mg/dL, High: Negative risk factor for coronary heart disease <40 mg/dL, Low: Positive risk factor for coronary heart diseasePerformed By: #### RAOUL, 10334-7 #### [facility] CLIA [id number] [address] [place], [place] [address]LDL CHOLESTEROL, NF66 mg/dLNormal <100[facility] HospitalComment on above:Order Comment: Specimen Type: BLOOD SPECIMEN Ordering Facility: [facility] Address: [address] [place], [place] [address]Result Comment: <100 mg/dL, Optimal 100-129 mg/dL, Near optimal/above optimal 130-159 mg/dL, Borderline high 160-189 mg/dL, High >189 mg/dL, Very high Secondary prevention optimal LDL Cholesterol levels are recommended to be < 70 mg/dLPerformed By: #### RAOUL, 12639-4 #### [facility] CLIA [id number] [address] [place] [address] AMERICALDL/HDL RATIO, NF0.96 mg/dLNormal <2.54[facility] HospitalComment on above:Order Comment: Specimen Type: BLOOD SPECIMEN Ordering Facility: [facility] Address: [address] [place] [address] Comment: Reference: 1. National Cholesterol Education Program ATP III Guideline At-A-Glance Quick Desk Reference: National Heart, Lung, and Blood [place]. National Institutes of Health. 2001: NIH Publication No. 01-3305. 2. An International Atherosclerosis Society position paper: global recommendations for the management of dyslipidemia: executive summary, Atherosclerosis. 2014: 232(2):410-413.Performed By: #### RAOUL, 43902-6 #### [facility] CLIA [id number] [address] [place] [address] [place] AMERICANON HDL CHOL, NF85 mg/dLNormal<130 [facility] HospitalComment on above:Order Comment: Specimen Type: BLOOD SPECIMEN Ordering Facility[facility] Address: [address] [place], [place] [address]Result Comment: <130 mg/dL, Optimal 130-159 mg/dL, Near optimal/above optimal 160-189 mg/dL, Borderline high 190-219 mg/dL, High >219 mg/dL, Very high Secondary prevention optimal non HDL Cholesterol levels are recommended to be <100 mg/dLPerformed By: #### RAOUL, #### [facility] CLIA [id number] [address] [place] [address] STATES OF [facility]ITALT CHOL/HDL RATIO NF2.23 mg/dLNormal <5.10[facility] HospitalComment on above:Order Comment: Specimen Type: BLOOD SPECIMEN [facility]ing Facility[facility] Address: [address] [place], [place] [address]Performed By: #### RAOUL, #### [facility] CLIA [id number] [address] [place] [address] [place] AMERICATRIGLYCERIDES, NF96 mg/dLNormal<150 [facility] HospitalComment on above:Order Comment: Specimen Type: BLOOD SPECIMEN Order[facility] Facility[facility] Address: [address] [place], [place] [address]Result Comment: <150 mg/dL, Normal 150-199 mg/dL, Borderline high 200-499 mg/dL, High >499 mg/dL, Very highPerformed By: #### LIPMARTHA, #### [facility] CLIA [id number] [address] [place] [address] [place] AMERICAVLDL CHOLESTEROL, NF19 mg/dLNormal <30[facility] HospitalComment on above:Order Comment: Specimen Type: BLOOD SPECIMEN Ordering Facility[facility] Address: [address] [place], [place] [address]Performed By: #### LIP, 42715-6 #### [facility] CLIA [id number] [address] [place] [address] [place] AMERICAPHOSPHATIDYLETHANOL (PETH)on 93-49-9987NFV PETHSee NoteNoGuardian HospitalComment on above:Order Comment: Specimen Type: BLOOD SPECIMEN Ordering Facility: [facility] Address: [address] [place] [address] Comment: Authorized individuals can access the [facility] Enhanced Report using the following link: [email or web address] By: #### PETH #### [facility] CLIA [id number] [address] [place], [place] [address]FHQG 16:0/18.2 (PLPETH)244 ng/mLNBaystate Mary Lane Hospital Comment on above:Order Comment: Specimen Type: BLOOD SPECIMEN Ordering Facility: [facility] Address: [address] [place] [address] Comment: Reference ranges are not well established.Performed By: #### PETH #### [facility] [employer] CLIA [id number] [address] [place], [place] [address]BWEL 16:0/18:1 (POPETH)169 ng/mLNBaystate Mary Lane Hospital Comment on above:Order Comment: Specimen Type: BLOOD SPECIMEN Ordering Facility: [facility] Address: [address] [place] [address] Comment: PEth 16:0/18:1 (POPEth) Less than 10 ng/mL............Not detected Less than 20 ng/mL............Abstinence or light alcohol consumption 20 - 200 ng/mL................Moderate alcohol consumption Greater than 200 ng/mL........Heavy alcohol consumption or chronic alcohol use (Reference: Sophie Gonzalez and Crystal Helm 2018 J. Forensic Sci)Performed By: #### PETH #### [facility] CLIA [id number] [address] [place], [place] [address]E[facility]IC[facility] Comment on above:Order Comment: Specimen Type: BLOOD SPECIMEN Ordering Facility: [facility] Address: [address], [place], [place] [address]Morjfz Comment: Phosphatidylethanol (PEth) is a group of phospholipids formed [...] developed and its performance characteristics determined by [facility]. It has not been cleared or approved by the U.S. Food and Drug Administration. This test was performed in a CLIA-certified laboratory and is intended for clinical purposes. Performed By: [facility] [address] [place] [address] Lead Relay Tester: Osmar Salcido MD, PhD CLIA Number: [id number] By: #### PETH #### [facility] CLIA [id number] [address] [place], [place] [address]XCA ABDOMEN W WO CONTRAST MRCPon 84-04-3544YWX ABDOMEN W WO CONTRAST MRCPEXAM: MRI ABDOMEN W WO CONTRAST MRCP HISTORY: [...] Signed by: Troy Bond MD 08/20/23 Final resultNormDunlap Memorial HospitalVitamin Aon 93-45-1742Gnbeandqzsefgv NormalNormMercer County Community HospitalComment on above:Result Comment: (NOTE) This test was developed and its performance characteristics determined by [facility]. It has not been cleared or approved by the US Food and Drug Administration. This test was performed in a CLIA certified laboratory and is intended for clinical purposes. Performed By: [facility] [address] [place] [address] Lead Relay Tester: Osmar Salcido MD, PhD CLIA Number: [id number] By: #### HARDIK, FECHRIS, FERI, GLYHGB, VD25 #### [address] [address] Sourcing Intern: Harpal Adair MD #### AGNES OLIVO, AZN #### [address] [address] Sourcing Intern: Patricio Zuñiga MD #### MG ANGEL, CDP #### [address] [place] [address] Sourcing Intern: Hilton Armenta, MDRetinol (Vitamin A)0.60 mg/LNormal0.30-1.20[facility] HospitalComment on above:Performed By: #### ALFONSO DYE, FERI, GLYHGB, VD25 #### [address] [address] Sourcing Intern: Harpal Adair MD #### AGNES OLIVO, AZN #### [address] [id number] Sourcing Intern: Patricio Zuñiga MD #### MG ANGEL, CDP #### [address] [place], [place] [address] Sourcing Intern: Hilton Armenta, MDRetinyl Palmitate<0.97Fqliyt6.00-0.10[facility] HospitalComment on above:Performed By: #### ALFONSO DYE, FERI, GLYHGB, VD25 #### [address] [address] Sourcing Intern: Harpal Adair MD #### AGNES OLIVO, AZN #### [address] [address] Sourcing Intern: Patricio Zuñiga MD #### CP, MG, CDP #### [facility] [address] [place] [address] Sourcing Intern: César Ruiz aminotransferase [Enzymatic activity/volume] in Serum or PlasmaOrdered By: Yoli Norris on 47-04-5444BHL [Catalytic activity/Vol]18 U/L7-52[facility] HospitalAlbumin [Mass/volume] in Serum or Plasma by Bromocresol green (BCG) dye binding metho Ordered By: Yoli Norris on 68-15-8894Vmysukj BCG dye [Mass/Vol]4.6 g/dL 3.5-5.7FCleveland ClinicAlkaline phosphatase [Enzymatic activity/volume] in Serum or PlasmaOrdered By: Yoli Norris on 99-53-4434WAO [Catalytic activity/Vol]77 U/B47-584CesxevibbMercy Memorial HospitalAspartate aminotransferase [Enzymatic activity/volume] in Serum or PlasmaOrdered By: Yoli Norris on 20-63-4340MGE [Catalytic activity/Vol]18 U/R61-02HvrkyhrbqMercy Memorial HospitalBasophils Auto (Bld) [#/Vol]Ordered By: Yoli Norris on 19-63-3012Jvesggkse (Bld) [#/Vol]0.1 10*3/uL0.0-0.2FCleveland ClinicBasophils/100 WBC Auto (Bld)Ordered By: Yoli Norris on 08-15-2023 Basophils/100 WBC (Bld)0.5 %.[facility] HospitalBilirubin Test strip Ql (U)Ordered By: Yoli Norris on 65-01-2915Ankdkpmkn Ql (U)Negative NegativeMercy Memorial HospitalBilirubin.direct [Mass/volume] in Serum or PlasmaOrdered By: Yoli Norris on 19-66-9891Jrqlujlpw.direct [Mass/Vol] 0.00 mg/dL0.03-0.18FCleveland ClinicComment on above:If the DBIL is less than 0.1, IBIL is not able to becalculated.Bilirubin.total [Mass/volume] in Serum or PlasmaOrdered By: Yoli Norris on 08-15-2023 Bilirubin [Mass/Vol]0.3 mg/dL0.3-1.0[facility] HospitalCalcium [Mass/volume] in Serum or PlasmaOrdered By: Yoli Norris on 12-48-3687Sqztduz [Mass/Vol]9.8 mg/dL8.6-10.3FCleveland ClinicCarbon dioxide, total [Moles/volume] in Serum or PlasmaOrdered By: Yoli Norris on 08-15-2023 CO2 [Moles/Vol]21.8 mmol/L21.0-31.0[facility] HospitalChloride [Moles/volume] in Serum or PlasmaOrdered By: Yoli Norris on 08-15-2023 Chloride [Moles/Vol]109 mmol/Z43-390XbruzhltvMercy Memorial HospitalColor Auto (U)Ordered By: Yoli Norris on 74-94-3886Tddfb (U)YellowYellowMercy Memorial HospitalCreatinine [Mass/volume] in Serum or PlasmaOrdered By: Yoli Norris on 92-96-0482Pchkvacbdc [Mass/Vol]0.76 mg/dL0.60-1.20[facility] HospitalEosinophils Auto (Bld) [#/Vol]Ordered By: Yoli Norris on 39-64-5833Dtfifffksjt (Bld) [#/Vol]0.2 10*3/uL0.0-0.45[facility] HospitalEosinophils/100 WBC Auto (Bld)Ordered By: Yoli Norris on 69-42-0981Wehplkdwvit/100 WBC (Bld)2.1 %.[facility] Erythrocyte distribution width Auto (RBC) [Ratio]Ordered By: Yoli Norris on 13-65-7518Ojjrawlwfwi distribution width (RBC) [Ratio]15.1 %11.9-15.3FCleveland ClinicGlobulin Calc (S) [Mass/Vol]Ordered By: Yoli Norris on 44-07-3189Hwulwqrd (S) [Mass/Vol]3.2 g/dLMercy Memorial Hospital Glucose [Mass/volume] in Serum or PlasmaOrdered By: Yoli Norris on 08-15-2023 Glucose [Mass/Vol]85 mg/aG79-729NzyjpbircMercy Memorial HospitalComment on above:ADA recommended reference rangeRandom Glucose Reference Range is dependent on time and content of last meal. Glucose of more than 200 mg/dL in a nonstressed, ambulatory subject supports the diagnosisof Diabetes Mellitus.HCG ( test) IA.rapid Ql (U)Ordered By: Yoli Norris on 24-27-3789GPP ( test) Ql (U)NegativeMercy Memorial HospitalHematocrit Auto (Bld) [Volume fraction]Ordered By: Yoli Norris on 90-81-5220Mlxisocmqm (Bld) [Volume fraction]37.2 %34.0-46.4FCleveland ClinicHemoglobin [Mass/volume] in BloodOrdered By: Yoli Norris on 70-62-9536Cnvdtmlrhr (Bld) [Mass/Vol]12.2 g/dL11.8-15.4FCleveland ClinicKetones Auto test strip (U) [Mass/Vol]Ordered By: Yoli Norris on 14-84-1382Ahtzgzc (U) [Mass/Vol]NegativeNegativeMercy Memorial HospitalLeukocytes [#/volume] corrected for nucleated erythrocytes in Blood by Automated counOrdered By: Yoli Norris on 35-03-0011EJO corrected for nucl RBC Auto (Bld) [#/Vol]11.3 10*3/uL3.8-11.6FCleveland ClinicLipase [Enzymatic activity/volume] in Serum or PlasmaOrdered By: Yoli Norris on 08-15-2023 Lipase [Catalytic activity/Vol]32.0 U/L11.0-82.0Mer[facility] HospitalLymphocytes Auto (Bld) [#/Vol]Ordered By: Yoli Norris on 08-15-2023 Lymphocytes (Bld) [#/Vol]2.0 10*3/uL1.00-4.8[facility] Lymphocytes/100 WBC Auto (Bld)Ordered By: Yoli Norris on 08-15-2023 Lymphocytes/100 WBC (Bld)17.8 %.[facility] HospitalMCH Auto (RBC) [Entitic mass]Ordered By: Yoli Norris on 33-39-8837HPO (RBC) [Entitic mass] 30.2 pg24.7-34.3FCleveland ClinicMCHC Auto (RBC) [Mass/Vol] Ordered By: Yoli Norris on 86-00-8041RWPJ (RBC) [Mass/Vol]32.7 g/dL32.0-35.0 [facility] HospitalMCV Auto (RBC) [Entitic vol]Ordered By: Yoli Norris on 51-84-7569PDB (RBC) [Entitic vol]92.4 kC62-840NdkuobrfmMercy Memorial HospitalMonocyte distribution width [Entitic volume] in Blood by Automated Ordered By: Yoli Norris on 48-58-9553Srtmvehp distribution width Auto (Bld) [Entitic vol]15.46 %0.00-20.00Mer[facility] HospitalMonocytes Auto (Bld) [#/Vol]Ordered By: Yoli Norris on 21-96-9841Yxfnqkdja (Bld) [#/Vol]0.6 10*3/uL0.0-0.8Mer[facility] HospitalMonocytes/100 WBC Auto (Bld) Ordered By: Yoli Norris on 20-94-6691Ffvdzqiev/100 WBC (Bld)5.0 %.[facility] HospitalNeutrophils Auto (Bld) [#/Vol]Ordered By: Yoli Norris on 02-41-2490Fredzvdvjpa (Bld) [#/Vol]8.4 10*3/uL1.8-7.7FCleveland ClinicNeutrophils/100 WBC Auto (Bld)Ordered By: Yoli Norris on 50-27-6452Cvxeztyfmvy/100 WBC (Bld)74.6 %.[facility] Nitrite Test strip Ql (U)Ordered By: Yoli Norris on 89-18-3484Vhdstqg Ql (U) NegativeNegativeMercy Memorial HospitalNo Panel InformationOrdered By: Yoli Norris on 39-21-1140Eljlbeiyh GFR (CKD-EPI)> 60.0 mL/MinMercy Memorial HospitalPharmacy Creatinine Clearance (Fdao354.62Mer[facility] Memorial HospitalNucleated erythrocytes [Presence] in Blood by Automated countOrdered By: Yoli Norris on 65-36-6683Tujiukxzh RBC Auto Ql (Bld)0.0 /100{WBC}0-0.5FCleveland ClinicPlatelet mean volume Auto (Bld) [Entitic vol]Ordered By: Yoli Norris on 63-29-2691Dqfdnype mean volume (Bld) [Entitic vol]9.2 fL6.3-10.7FCleveland ClinicPlatelets Auto (Bld) [#/Vol]Ordered By: Yoli Norris on 29-07-4627Awvuucfti (Bld) [#/Vol]321 10*3/hH671-058QkumqxtehMercy Memorial HospitalPotassium [Moles/volume] in Serum or PlasmaOrdered By: Yoli Norris on 34-16-2091Zyrfbxrze [Moles/Vol]3.5 mmol/L3.5-5.1FCleveland ClinicProtein Auto test strip (U) [Mass/Vol]Ordered By: Yoli Norris on 08-04-6066Addplly (U) [Mass/Vol]Negative NegativeMercy Memorial HospitalProtein [Mass/volume] in Serum or PlasmaOrdered By: Yoli Norris on 96-29-8817Qntheti [Mass/Vol]7.8 g/dL6.4-8.9 [facility] HospitalRBC Auto (Bld) [#/Vol]Ordered By: Yoli Norris on 14-40-4980CCW (Bld) [#/Vol]4.03 10*6/uL3.60-5.00[facility] Rutan Hospitalerum or plasma albumin/globulin mass ratioOrdered By: Yoli Norris on 91-73-4482Yntbpan/Globulin [Mass ratio]1.4 {ratio}[facility] Hospitalerum or plasma anion gap determinationOrdered By: Yoli Norris on 60-73-6903Ctnum gap [Moles/Vol]12.7 mmol/L6.0-15.0[facility] Hospitalerum or plasma non-glucuronidated bilirubin measurement (mass/volume) Ordered By: Yoli Norris on 12-43-9592Jwhzqphgp.indirect [Mass/Vol]0.3 mg/dL [facility] Hospitalodium [Moles/volume] in Serum or PlasmaOrdered By: Yoli Norris on 94-67-3433Tihnyv [Moles/Vol]140 mmol/P362-095AahaxostoMary Rutan Hospitalpecific gravity Auto test strip (U) [Rel density]Ordered By: Yoli Norris on 61-15-1143Clxiupve gravity (U) [Rel density]1.007 1.001-1.030Mer[facility] Memorial HospitalUrea nitrogen [Mass/volume] in Serum or PlasmaOrdered By: Yoli Norris on 92-68-6154Hhom nitrogen [Mass/Vol]11 mg/dL7-25Mer[facility] Memorial HospitalUrine clarity by refractometry automatedOrdered By: Yoli Norris on 97-52-2233Lgsqikb Refractometry automated (U)ClearClearFCleveland ClinicUrine glucose measurement by automated test strip (mass/volume)Ordered By: Yoli Norris on 08-15-2023 Glucose Auto test strip (U) [Mass/Vol]Normal mg/dLNormLima City HospitalUrine hemoglobin detection by automated test stripOrdered By: Yoli Norris on 33-74-6531Qasihpygju Auto test strip Ql (U)NegativeNegOhioHealth Van Wert HospitalUrine leukocyte esterase detection by automated test stripOrdered By: Yoli Norris on 01-94-9839Cpcltmbhq esterase Auto test strip Ql (U)NegativeNegativeMercy Memorial HospitalUrobilinogen Auto test strip (U) [Mass/Vol]Ordered By: Yoli Norris on 86-41-4936Zujkjadtndvy (U) [Mass/Vol]Normal mg/dLNoCherrington HospitalVitamin B1on 49-74-6323Bdrvawk B1145 nmol/WNqzopa56-594KssntPromedica Flower HospitalComment on above: Result Comment: (NOTE) INTERPRETIVE INFORMATION: Vitamin B1, Whole Blood This assay measures the concentration of thiamine diphosphate (TDP), the primary active form of vitamin B1. Approximately 90 percent of vitamin B1 present in whole blood is TDP. Thiamine and thiamine monophosphate, which comprise the remaining 10 percent, are not measured. This test was developed and its performance characteristics determined by [email or web address]. It has not been cleared or approved by the US Food and Drug Administration. This test was performed in a CLIA certified laboratory and is intended for clinical purposes. Performed By: [email or web address] [address] [place] [address] Lead Relay Tester: Osmar Salcido MD, PhD [place] Number: [id number] By: #### PTHNCA, FEBC, FERI, GLYHGB, VD25 #### [facility] [address] [place] [address] Sourcing Intern: Harpal Adair MD #### TYREE OLIVO1, AZN #### [facility] [address] [place] [address] Sourcing Intern: Patricio Zuñiga MD #### CP, MG, CDP #### [facility] [address] [address] Sourcing Intern: Hilton Armenta MDWBC Auto (Bld) [#/Vol]Ordered By: Yoli Norris on 78-85-2021VVG (Bld) [#/Vol]11.3 10*3/uL3.8-11.6FCleveland ClinicpH Auto test strip (U)Ordered By: Yoli Norris on 57-51-3116gO (U)8.0 [pH]5.0-9.0Mercy Memorial HospitalZinc, Serumon 27-71-4681Ndox, Serum 95.3 ug/nAFimxrg96.0-120.0Promedica Flower HospitalComment on above:Result Comment: (NOTE) INTERPRETIVE INFORMATION: Zinc, Serum or Plasma Elevated [...] developed and its performance characteristics determined by [email or web address]. It has not been cleared or approved by the US Food and Drug Administration. This test was performed in a CLIA certified laboratory and is intended for clinical purposes. Performed By: [email or web address] [address] [place] [address] Lead Relay Tester: Osmar Salcido MD, PhD CLIA Number: [id number] By: #### PTHNCA, FEBC, FERI, GLYHGB, VD25 #### [facility] [address] [place] [address] Sourcing Intern: Harpal Adair MD #### AGNES OLIVO, AZN #### [facility] [address] [place] [address] Sourcing Intern: Patricio Zuñiga MD #### ANGEL, MG, CDP #### [address] [place], [place] 576[address]83 Sourcing Intern: ROBIN Ruiz/Folate Panelon 52-48-8301Rambm Acid>20.0Normal >4.8Promedica Flower HospitalComment on above:Performed By: #### HARDIK, ALFONSO, FERI, GLYHGB, VD25 #### [address] [address] Sourcing Intern: Harpal Adair MD #### AGNES OLIVO, AZN #### [facility] [address] [place] [address] Sourcing Intern: Patricio Zuñiga MD #### MG ANGEL, CDP #### [address] [place], [place] [phone] Sourcing Intern: Marvin Ruiz (Vitamin B12) [Mass/Vol]632 pg/mLNormal 232-1245Promedica Flower HospitalComment on above:Performed By: #### HARDIK, ALFONSO, FERI, GLYHGB, VD25 #### [address] [address] Sourcing Intern: Harpal Adair MD #### AGNES OLIVO, AZN #### [facility] [address] [place] [address] Sourcing Intern: Patricio Zuñiga MD #### ANGEL, MG, CDP #### [address] [place], [place] 2200383 Sourcing Intern: TARA Ruiz with Diffon 49-42-3976Lbg. Basophil0.06 k/uL Normal0.00-0.20Promedica Flower HospitalComment on above:Performed By: #### KIAA, FEBC, FERI, GLYHGB, VD25 #### [facility] [address] [place] [address] Sourcing Intern: Harpal Adair MD #### AGNES OLIVO, AZN #### [facility] [address] [place] [address] Sourcing Intern: Patricio Zuñiga MD #### MG ANGEL, CDP #### [address] [place] [phone] Sourcing Intern: Sharon Ruiz.Imm.Granulocyte0.03 k/uLNormal0.00-0.30Promedica Flower HospitalComment on above:Performed By: #### ALFONSO DYE, FERI, GLYHGB, VD25 #### [address] [address] Sourcing Intern: Harpal Adair MD #### AGNES OLIVO, AZN #### [facility] [address] [place] [address] Sourcing Intern: Patricio Zuñiga MD #### MG ANGEL, CDP #### [address] [place] [address] Sourcing Intern: Sharon Ruiz.Neutrophil (Seg)6.33 k/uLNormal1.50-8.10Promedica Flower HospitalComment on above:Performed By: #### ALFONSO DYE, FERI, GLYHGB, VD25 #### [facility] [address] [place] [address] Sourcing Intern: Harpal Adair MD #### AGNES OLIVO, AZN #### [facility] [address] [place] [address] Sourcing Intern: Patricio Zuñiga MD #### ANGEL MG, CDP #### [address] [place], [place] [address] Sourcing Intern: Hilton Armenta MDBasophils/100 WBC (Bld)1 %Normal0-2[facility] [place] HospitalComment on above:Performed By: #### HARDIK, ALFONSO, FERI, GLYHGB, VD25 #### [address] [id number] Sourcing Intern: Harpal Adair MD #### AGNES OLIVO, AZN #### [facility] [address] [place] [address] Sourcing Intern: Patricio Zuñiga MD #### MG ANGEL, CDP #### [address] [place] [phone] Sourcing Intern: Hilton Armenta MDEosinophils (Bld) [#/Vol]0.43 10*3/uLNormal 0.00-0.44Promedica Flower HospitalComment on above:Performed By: #### ALFONSO DYE, FERI, GLYHGB, VD25 #### [address] [address] Sourcing Intern: Harpal Adair MD #### AGNES OLIVO, AZN #### [facility] [address] [place] [address] Sourcing Intern: Patricio Zuñiga MD #### ANGEL MG, CDP #### [address] [place], [place] 0563783 Sourcing Intern: Hilton Armenta MDEosinophils/100 WBC (Bld)5 %High1-4[facility] [place] HospitalComment on above:Performed By: #### PTHNCA, FEBC, FERI, GLYHGB, VD25 #### [address] [place] [address] Sourcing Intern: Harpal Adair MD #### AGNES OLIVO, AZN #### [facility] [address] [place], [place] [id number] Sourcing Intern: Patricio Zuñiga MD #### MG ANGEL, CDP #### [address] [place], [place] 7661083 Sourcing Intern: Hilton Armenta MDErythrocyte distribution width (RBC) [Ratio]14.9 % High11.8-14.4Promedica Flower HospitalComment on above:Performed By: #### KIAA, FEBC, FERI, GLYHGB, VD25 #### [address] [address] Sourcing Intern: Harpal Adair MD #### AGNES OLIVO, AZN #### [facility] [address] [place], [place] [id number] Sourcing Intern: Patricio Zuñiga MD #### MG ANGEL, CDP #### [address] [place], [place] 2240683 Sourcing Intern: Hilton Armenta MDHematocrit (Bld) [Volume fraction]38.0 %Normal 36.3-47.1Mer[facility]state Medical CenterComment on above:Performed By: #### KIAA, FEBC, FERI, GLYHGB, VD25 #### [address] [address] Sourcing Intern: Harpal Adair MD #### AGNES OLIVO, AZN #### [facility] [address] [place], [place] [address] Sourcing Intern: Patricio Zuñiga MD #### MG ANGEL, CDP #### [address] [place], [place] 2082683 Sourcing Intern: Hilton Armenta MDHemoglobin (Bld) [Mass/Vol]12.2 g/dLNormal 11.9-15.1MDunlap Memorial HospitalComment on above:Performed By: #### PTHNCA, FEBC, FERI, GLYHGB, VD25 #### [address] [address] Sourcing Intern: Harpal Adair MD #### AGNES OLIVO, AZN #### [facility] [address] [place], [place] [id number] Sourcing Intern: Patricio Zuñiga MD #### MG ANGEL, CDP #### [address] [place] [phone] Sourcing Intern: Hilton Armenta MDImmature granulocytes/100 WBC (Bld)0 %Jjuokx1SsqwyPromedica Flower HospitalComment on above:Performed By: #### PTHNCA, FEBC, FERI, GLYHGB, VD25 #### [address] [address] Sourcing Intern: Harpal Adair MD #### AGNES OLIVO, AZN #### [facility] [address] [place] [address] Sourcing Intern: Patricio Zuñiga MD #### ANGEL, MG, CDP #### [address] [place], [place] 1656283 Sourcing Intern: Hilton Armenta MDLymphocytes (Bld) [#/Vol]1.90 10*3/uLNormal 1.10-3.70Promedica Flower HospitalComment on above:Performed By: #### PTHNCA, FEBC, FERI, GLYHGB, VD25 #### [address] [address] Sourcing Intern: Harpal Adair MD #### ARIAN OLIVOTB1, AZN #### [facility] [address] [place], [place] [address] Sourcing Intern: Patricio Zuñiga MD #### CP, MG, CDP #### [address] [place], [place] 4596983 Sourcing Intern: Hilton Armenta MDLymphocytes/100 WBC (Bld)20 %Lzy91-97RcpyjPromedica Flower HospitalComment on above:Performed By: #### KIAA, FEBC, FERI, GLYHGB, VD25 #### [address] [phone] Sourcing Intern: Harpal Adair MD #### ARIAN OLIVOTB1, AZN #### [facility] [address] [place] [address] Sourcing Intern: Patricio Zuñiga MD #### ANGEL, MG, CDP #### [address] [place] [phone] Sourcing Intern: TRESA Ruiz (RBC) [Entitic mass]29.9 ucWmiblf68.2-33.5 [facility] Flower HospitalComment on above:Performed By: #### KIAA, FEBC, FERI, GLYHGB, VD25 #### [address] [address] Sourcing Intern: Harpal Adair MD #### ARIAN OLIVOTB1, AZN #### [facility] [address] [place] [address] Sourcing Intern: Patricio Zuñiga MD #### CP, MG, CDP #### [address] [place], [place] 5028[address] Sourcing Intern: TRESA RuizC (RBC) [Mass/Vol]32.1 g/oHKravmc39.4-34.8Promed[facility] Flower HospitalComment on above:Performed By: #### PTHNCA, FEBC, FERI, GLYHGB, VD25 #### [address] [address] Sourcing Intern: Harpal Adair MD #### ARIAN OLIVOTB1, AZN #### [facility] [address] [place], [place] [id number] Sourcing Intern: Patricio Zuñiga MD #### CP, MG, CDP #### [address] [place], [place] 6069783 Sourcing Intern: JERRI RuizCV (RBC) [Entitic vol]93.1 aZAjjpxf21.6-102.9 [facility] Flower HospitalComment on above:Performed By: #### KIAA, FEBC, FERI, GLYHGB, VD25 #### [address] [address] Sourcing Intern: Harpal Adair MD #### AGNES OLIVO, AZN #### [facility] [address] [place] [address] Sourcing Intern: Patricio Zuñiga MD #### ANGEL, MG, CDP #### [address] [place], [place] 2413983 Sourcing Intern: JERRI Ruizonocytes (Bld) [#/Vol]0.70 10*3/uLNormal0.10-1.20 [facility] Flower HospitalComment on above:Performed By: #### PTHNCA, FEBC, FERI, GLYHGB, VD25 #### [address] [address] Sourcing Intern: Harpal Adair MD #### ARIAN OLIVOTB1, AZN #### [facility] [address] [place], [place] [address] Sourcing Intern: Patricio Zuñiga MD #### CP, MG, CDP #### [facility] [address] [place] [address] [place] [place], [place] 8878783 Sourcing Intern: JERRI Ruizonocytes/100 WBC (Bld)7 %Normal3-12Prom[facility] Flower HospitalComment on above:Performed By: #### PTHNCA, FEBC, FERI, GLYHGB, VD25 #### [facility] [address] [place] [address] Sourcing Intern: Harpal Adair MD #### ARIAN OLIVOTBCeli, AZN #### [facility] [address] [place], [place] [id number] Sourcing Intern: Patricio Zuñiga MD #### ANGEL, MG, CDP #### [facility] [address] [place] [address] [address] [place], [place] 9635983 Sourcing Intern: Hilton Armenta MDNetiffaniophil (Seg)67 %Uhbp41-99SdvdfPromedica Flower Hospital Comment on above:Performed By: #### KIAA, FEBC, FERI, GLYHGB, VD25 #### [facility] [address] [place] [address] Sourcing Intern: Harpal Adair MD #### AGNES OLIVO, AZN #### [facility] [address] [place] [address] Sourcing Intern: Patricio Zuñiga MD #### CP, MG, CDP #### [facility] [address] [place] [address] [address] [place], [place] 7045883 Sourcing Intern: Hilton Armenta MDNRBC Automated0.0 per 100 WBCNormal0.0Promed[facility] Flower HospitalComment on above:Performed By: #### PTHNCA, FEBC, FERI, GLYHGB, VD25 #### [facility] [address] [place] [address] Sourcing Intern: Harpal Adair MD #### ARIAN OLIVOTB1, AZN #### [facility] [address] [place] [address] Sourcing Intern: Patricio Zuñiga MD #### CP, MG, CDP #### [address] [place] [address] Sourcing Intern: Jennifer Ruiz mean volume (Bld) [Entitic vol]10.6 fL Normal8.1-13.5Promedica Flower HospitalComment on above:Performed By: #### KIAA, FEBC, FERI, GLYHGB, VD25 #### [address] [address] Sourcing Intern: Harpal Adair MD #### ARIAN OLIVOTB1, AZN #### [facility] [address] [place] [address] Sourcing Intern: Patricio Zuñiga MD #### ANGEL, MG, CDP #### [address] [place] [address] Sourcing Intern: Nickolas Ruiz (Bld) [#/Vol]355 10*3/qGGlcdlm757-053 [facility] HospitalComascension providence hospital on above:Performed By: #### PTHNCA, FEBC, FERI, GLYHGB, VD25 #### [address] [address] Sourcing Intern: Harpal Adair MD #### ARIAN OLIVOTB1, AZN #### [facility] [address] [place] [address] Sourcing Intern: Patricio Zuñiga MD #### CP, MG, CDP #### [address] [place], [place] 8720083 Sourcing Intern: EDIN Ruiz (Bld) [#/Vol]4.08 10*6/uLNormal3.95-5.11[facility] [place] HospitalComment on above:Performed By: #### HARDIK, ALFONSO, FERI, GLYHGB, VD25 #### [facility] [address] [place] [address] Sourcing Intern: Harpal Adair MD #### AGNES OLIVO, AZN #### [facility] [address] [place] [address] Sourcing Intern: Patricio Zuñiga MD #### ANGEL, MG, CDP #### [address] [place], [place] 1992183 Sourcing Intern: Hilton Armenta MDHARLEM H[facility] ([facility]) [#/Vol]9.5 10*3/uLNormal3.5-11.3[facility] [place] HospitalComment on above:Performed By: #### ALFONSO DYE, FERI, GLYHGB, VD25 #### [facility] [address] [place] [address] Sourcing Intern: Harpal Adair MD #### AGNES OLIVO, AZN #### [facility] [address] [place], [place] [id number] Sourcing Intern: Patricio Zuñiga MD #### CP, MG, CDP #### [address] [place], [place] 6405483 Sourcing Intern: Hilton Armenta [facility] Metabolic Profon 06-55-1544Qkstibz [Mass/Vol] 4.5 g/dLNormal3.5-5.2[facility] [place] HospitalComment on above:Performed By: #### MELVINANCA, FECHRIS, FERI, GLYHGB, VD25 #### [facility] [address] [place] [address] Sourcing Intern: Harpal Adair MD #### AGNES OLIVO, AZN #### [facility] [address] [place] [address] Sourcing Intern: Patricio Zuñiga MD #### MG ANGEL, CDP #### [address] [place], [place] 8247683 Sourcing Intern: Hilton Armenta MDAlbumin/Glob Ratio1.8Wwpgzo6.0-2.5[facility] [place] HospitalComment on above:Performed By: #### PTHNCA, FEBC, FERI, GLYHGB, VD25 #### [facility] [address] [place] [address] Sourcing Intern: Harpal Adair MD #### AGNES OLIVO, AZN #### [facility] [address] [place] [address] Sourcing Intern: Patricio Zuñiga MD #### MG ANGEL, CDP #### [address] [place], [place] 8010983 Sourcing Intern: Letty Ruizline Phos85 U/MAylfqe48-173Ilapq [facility]iffin HospitalComment on above:Performed By: #### HARDIK, ALFONSO, FERI, GLYHGB, VD25 #### [facility] [address] [place] [address] Sourcing Intern: Harpal Adair MD #### AGNES OLIVO, AZN #### [facility] [address] [place] [address] Sourcing Intern: Patricio Zuñiga MD #### ANGEL MG, CDP #### [address] [place] [address] Sourcing Intern: LILLIAN Ruiz [Catalytic activity/Vol]21 U/LNormal5-33[facility] HospitalComment on above:Performed By: #### PTHHAYDEEA, FEBC, FERI, GLYHGB, VD25 #### [facility] [address] Sourcing Intern: Harpal Adair MD #### AGNES OLIVO, AZN #### [facility] [address] [place] [address] Sourcing Intern: Patricio Zuñiga MD #### CP, MG, CDP #### [address] [place], [place] 1676083 Sourcing Intern: Robin Ruiz gap [Moles/Vol]11 mmol/LNormal9-17Prom[facility] Flower HospitalComment on above:Performed By: #### ALFONSO DYE, FERI, GLYHGB, VD25 #### [address] [address] Sourcing Intern: Harpal Adair MD #### AGNES OLIVO, AZN #### [facility] [address] [place] [id number] Sourcing Intern: Patricio Zuñiga MD #### ANGEL, MG, CDP #### [address] [place] [address] Sourcing Intern: JESSICA Ruiz [Catalytic activity/Vol]22 U/LNormal<32Prom[facility] Flower HospitalComment on above:Performed By: #### ALFONSO DYE, FERI, GLYHGB, VD25 #### [address] [address] Sourcing Intern: Harpal Adair MD #### AGNES OLIVO, AZN #### [facility] [address] [place], [place] [address] Sourcing Intern: Patricio Zuñiga MD #### CP, MG, CDP #### [address] [place], [place] 9635583 Sourcing Intern: Hilton Armenta MDBilirubin [Mass/Vol]0.2 mg/dLLow0.3-1.2MDunlap Memorial HospitalComment on above:Performed By: #### PTHNCA, FEBC, FERI, GLYHGB, VD25 #### [address] [address] Sourcing Intern: Harpal Adair MD #### PALLAVI, ARIANTB1, AZN #### [facility] [address] [place] [address] Sourcing Intern: Patricio Zuñiga MD #### CP, MG, CDP #### [address] [place] [address] Sourcing Intern: Hilton Armenta MDBUN/CRE Esifo12Pxhezd8-01Wjkxk [facility] Comment on above:Performed By: #### PTHNCA, FEBC, FERI, GLYHGB, VD25 #### [address] [address] Sourcing Intern: Harpal Adair MD #### ARIAN OLIVOTB1, AZN #### [facility] [address] [place] [id number] Sourcing Intern: Patricio Zuñiga MD #### CP, MG, CDP #### [address] [place] [address] Sourcing Intern: TARA Ruizalcium [Mass/Vol]9.9 mg/dLNormal8.6-10.4[facility] Flower HospitalComment on above:Performed By: #### PTHNCA, FEBC, FERI, GLYHGB, VD25 #### [address] [address] Sourcing Intern: Harpal Adair MD #### FARHADSARIANTB1, AZN #### [facility] [address] [place], [place] [address]277[address] Sourcing Intern: Patricio Zuñiga MD #### CP, MG, CDP #### [address] [place] 429[address]83 Sourcing Intern: TARA Ruizhloride [Moles/Vol]107 mmol/REpkqnc45-283SnwijPromedica Flower HospitalComment on above:Performed By: #### KIAA, FEBC, FERI, GLYHGB, VD25 #### [facility] [address] [place] [address] Sourcing Intern: Harpal Adair MD #### AGNES OLIVO, AZN #### [facility] [address] [place], [place] [id number] Sourcing Intern: Patricio Zuñiga MD #### ANGEL MG, CDP #### [address] [place] [phone] Sourcing Intern: TARA RuizO2 [Moles/Vol]23 mmol/EQhrblw44-95Xpzed [facility]in HospitalComment on above:Performed By: #### HARDIK, ALFONSO, FERI, GLYHGB, VD25 #### [facility] [address] [place] [address] Sourcing Intern: Harpal Adair MD #### AGNES OLIVO, AZN #### [facility] [address] [place] [address] Sourcing Intern: Patricio Zuñiga MD #### ANGEL, MG, CDP #### [address] [place], [place] 0647483 Sourcing Intern: TARA Ruizreatinine [Mass/Vol]0.6 mg/dLNormal0.5-0.9Prom[facility] Flower HospitalComment on above:Performed By: #### PTHNCA, FEBC, FERI, GLYHGB, VD25 #### [facility] [address] [place] [address] Sourcing Intern: Harpal Adair MD #### AGNES OLIVO, AZN #### [facility] [address] [place], [place] [address] Sourcing Intern: Patricio Zuñiga MD #### MG ANGEL, CDP #### [address] [place] [address] Sourcing Intern: Hilton Armenta MDGFR/1.73 sq M.predicted among non-blacks MDRD (S/P/Bld) [Vol rate/Area]mL/min/{1.73_m2}Normal>60Prom[facility] Flower HospitalComment on above:Result Comment: These results are not intended for [...] or following therapy that affects renal tubular secretion.Performed By: #### PTHNCA, FEBC, FERI, GLYHGB, VD25 #### [facility] [address] [place] [address] Sourcing Intern: Harpal Adair MD #### AGNES OLIVO, AZN #### [facility] [address] [place], [place] [address] Sourcing Intern: Patricio Zuñiga MD #### MG ANGEL, CDP #### [address] [place] [address] Sourcing Intern: Hilton Armenta MDGlucose [Mass/Vol]89 mg/ePRlrnrx21-09Kny[address] [place], [place] [address]Comment on above:Performed By: #### PTHHAYDEEA, FECHRIS, FERI, GLYHGB, VD25 #### [facility] [address] [place] [address] Sourcing Intern: Harpal Adair MD #### AGNES OLIVO, AZN #### [facility] [address] [place] [address] Sourcing Intern: Patricio Zuñiga MD #### MG ANGEL, CDP #### [address] [place], [place] 9210883 Sourcing Intern: Hilton Armenta MDPotassium [Moles/Vol]4.3 mmol/LNormal3.7-5.3[facility] HospitalComment on above:Performed By: #### HARDIK, FEBC, FERI, GLYHGB, VD25 #### [address] [id number] Sourcing Intern: Harpal Adair MD #### AGNES OLIVO, AZN #### [facility] [address] [place], [place] [address] Sourcing Intern: Patricio Zuñiga MD #### MG ANGEL, CDP #### [address] [place] [address] Sourcing Intern: Hilton Armenta MDProtein [Mass/Vol]7.4 g/dLNormal6.4-8.3[facility] HospitalComment on above:Performed By: #### ALFONSO DYE, FERI, GLYHGB, VD25 #### [address] [phone] Sourcing Intern: Harpal Adair MD #### AGNES OLIVO, AZN #### [facility] [address] [place], [place] [address] Sourcing Intern: Patricio Zuñiga MD #### MG ANGEL, CDP #### [address] [place] [address] Sourcing Intern: Hilton Armenta MDSodium [Moles/Vol]141 mmol/CXobhkr079-373Ded[facility] HospitalComment on above:Performed By: #### PTHNCA, FEBC, FERI, GLYHGB, VD25 #### [facility] [place] [address] Sourcing Intern: Harpal Adair MD #### AGNES OLIVO, AZN #### [facility] [address] [place], [place] [id number] Sourcing Intern: Patricio Zuñiga MD #### MG ANGEL, CDP #### [address] [place], [place] 6570883 Sourcing Intern: Hilton Armenta MDUrea nitrogen [Mass/Vol]12 mg/dLNormal6-20[facility] F[facility] HospitalComment on above:Performed By: #### ALFONSO DYE, FERI, GLYHGB, VD25 #### [address] [address] Sourcing Intern: Harpal Adair MD #### AGNES OLIVO, AZN #### [facility] [address] [place], [place] 339[address] Sourcing Intern: Patricio Zuñiga MD #### MG ANGEL, CDP #### [address] [place] [address] Sourcing Intern: Hilton Armenta MDFerritinon 83-66-6234Fpcbellz [Mass/Vol]12 ng/mL Kxn86-787TyhhcPromedica Flower HospitalComment on above:Performed By: #### ALFONSO DYE, FERI, GLYHGB, VD25 #### [address] [address] Sourcing Intern: Harpal Adair MD #### AGNES OLIVO, AZN #### [facility] [address] [place], [place] [id number] Sourcing Intern: Patricio Zuñiga MD #### MG ANGEL, CDP #### [address] [place] [phone] Sourcing Intern: Hilton Armenta MDHemoglobin A1Con 39-99-0366Zurvtdj [Mass/Vol]114 mg/dLNormalPromedica Flower HospitalComment on above:Result Comment: The ADA and AACC recommend providing the estimated average glucose result to permit better patient understanding of their HBA1c result.Performed By: #### PTHNCA, FEBC, FERI, GLYHGB, VD25 #### [facility] [address] [place] [address] Sourcing Intern: Harpal Adair MD #### ARIAN OLIVOTBCeli, AZN #### [facility] [address] [place] [address] Sourcing Intern: Patricio Zuñiga MD #### CP, MG, CDP #### [address] [place] [phone] Sourcing Intern: Hilton Armenta MDHbA1c (Bld) [Mass fraction]5.6 %Normal4.0-6.0Prom[facility] Flower HospitalComment on above:Performed By: #### KIAA, FEBC, FERI, GLYHGB, VD25 #### [facility] [address] [place] [address] Sourcing Intern: Harpal Adair MD #### AGNES OLIVO, AZN #### [facility] [address] [place] [address] Sourcing Intern: Patricio Zuñiga MD #### CP, MG, CDP #### [address] [place] [address] Sourcing Intern: Hilton Armenta MDIron Binding Cap.on 08-12-2023% Fe Ulmwmilrnq02 % Fam13-65OemtuPromedica Flower HospitalComment on above:Performed By: #### PTHNCA, FEBC, FERI, GLYHGB, VD25 #### [facility] [address] [place] [id number] Sourcing Intern: Harpal Adair MD #### ARIAN OLIVOTB1, AZN #### [facility] [address] [place] [address] Sourcing Intern: Patricio Zuñiga MD #### CP, MG, CDP #### [address] [place], [place] [id number] Sourcing Intern: Hilton Armenta MDIron [Mass/Vol]57 ug/cVZunbpk30-938FdkqbPromedica Flower HospitalComment on above:Performed By: #### PTHNCA, FEBC, FERI, GLYHGB, VD25 #### [address] [id number] Sourcing Intern: Harpal Adair MD #### ARIAN OLIVOTB1, AZN #### [facility] [address] [place] [address] [id number] Sourcing Intern: Patricio Zuñiga MD #### ANGEL, MG, CDP #### [address] [place], [place] [phone] Sourcing Intern: Hilton Armenta MDTotal Fe Binding Rpf705 ug/qFAhxdos765-995ZvltgPromedica Flower HospitalComment on above:Performed By: #### PTHNCA, FEBC, FERI, GLYHGB, VD25 #### [address] [address] Sourcing Intern: Harpal Adair MD #### ARIAN OLIVOTB1, AZN #### [facility] [address] [place] [address] Sourcing Intern: Patricio Zuñiga MD #### CP, MG, CDP #### [address] [place], [place] [address]83 Sourcing Intern: Hilton Armenta MDUnbound Fe Bind Rjg202 ug/kUNjxkdm291-525JrqafGalion Community Hospital on above:Performed By: #### PTHNCA, FEBC, FERI, GLYHGB, VD25 #### [address] [place] [address] Sourcing Intern: Harpal Adair MD #### TYREE OLIVO1, AZN #### [facility] [address] [place] [address] Sourcing Intern: Patricio Zuñiga MD #### CP, MG, CDP #### [facility] [address] [place] [address] Sourcing Intern: Hilton Armenta MDLipid Profileon 24-36-0507Omtvqzpzavn [Mass/Vol] 153 mg/dLNormal<200[facility] on above:Result Comment: Cholesterol Guidelines: <200 Desirable 200-240 Borderline >240 UndesirablePerformed By: #### LIPR #### [address] [address] Sourcing Intern: Harpal Adair MDCholesterol in HDL [Mass/Vol]68 mg/dLNormal>40 [facility] on above:Result Comment: HDL Guidelines: <40 Undesirable 40-59 Borderline >59 DesirablePerformed By: #### LIPR #### [address] [address] Sourcing Intern: TARA Naylorholesterol in LDL [Mass/Vol]77 mg/dLNormal0-130 [facility] on above:Result Comment: LDL Guidelines: <100 Desirable 100-129 Near to/above Desirable 130-159 Borderline >159 Undesirable Direct (measured) LDL and calculated LDL are not interchangeable tests.Performed By: #### LIPR #### [address] [address] Sourcing Intern: Christopher Naylorstkitty.total/Cholesterol in HDL [Mass ratio]2.3 {ratio}Normal<5[facility] HospitalComment on above:Performed By: #### LIPR #### [address] [place] [address] Sourcing Intern: Harpal Adair MDTriglyceride [Mass/Vol]39 mg/dLNormal<150Mer[facility] Midstate Medical CenterComment on above:Result Comment: Triglyceride Guidelines: <150 Desirable 150-199 Borderline 200-499 High >499 Very high Based on AHA Guidelines for fasting triglyceride, June 2012.Performed By: #### LIPR #### [address] [address] Sourcing Intern: Harpal Adair MDMagnesiumon 67-18-0753Ullixhgus [Mass/Vol]2.1 mg/dLNormal1.6-2.6Mer[facility] Midstate Medical CenterComment on above:Performed By: #### ALFONSO DYE, ARNOLDO, DONAVANB, VD25 #### [address] [address] Sourcing Intern: Harpal Adair MD #### AGNES OLIVO, AZN #### [facility] [address] [place] [address] Sourcing Intern: Patricio Zuñiga MD #### CP, MG, CDP #### [facility] [address] [place] [address] Sourcing Intern: Hilton Armenta [facility], [place] 62-88-8559VVQ, Fmmsyg09.1 pg/mL Yxkrrp92.0-72.0Promedica Flower HospitalComment on above:Result Comment: SAMPLES FROM PATIENTS ROUTINELY RECEIVING HIGH DOSE BIOTIN THERAPY MAY SHOW FALSELY DEPRESSED RESULTS. ADDITIONAL INFORMATION MAY BE REQUIRED FOR DIAGNOSIS.Performed By: #### ALFONSO DYE, ARNOLDO, GLYHGB, VD25 #### [facility] [address] [place] [address] Sourcing Intern: Harpal Adair MD #### AGNES OLIVO, AZN #### [facility] [address] [place], [place] [id number] Sourcing Intern: Patricio Zuñiga MD #### MG ANGEL, CDP #### [address] [place] [address] Sourcing Intern: Hilton Armenta MDThyroid Stim. Horm.on 71-61-1853Llymznt Stim. Horm.1.50 uIU/mLNormal0.30-5.00Promedica Flower HospitalComment on above:Performed By: #### PTHHAYDEEA, FEBC, FERI, GLYHGB, VD25 #### [facility] [address] [place] [address] [id number] Sourcing Intern: Harpal Adair MD #### AGNES OLIVO, AZN #### [facility] [address] [place], [place] [id number] Sourcing Intern: Patricio Zuñiga MD #### MG ANGEL, CDP #### [address] [place] [address] Sourcing Intern: Hilton Armenta MDThyroxine, Freeon 90-99-9867Ansjvsfzd, Free1.2 ng/dLNormal0.9-1.7Promedica Flower HospitalComment on above:Performed By: #### HARDIK, FECHRIS, FERI, GLYHGB, VD25 #### [facility] [address] [place] [address] [phone] Sourcing Intern: Harpal Adair MD #### AGNES OLIVO, AZN #### [facility] [address] [place], [place] [id number] Sourcing Intern: Patricio Zuñiga MD #### MG ANGEL, CDP #### [address] [place] [address] Sourcing Intern: Hilton Armenta MDUS GALLBLADDER RUQon 16-86-6510SC GALLBLADDER RUQ EXAMINATION: RIGHT UPPER QUADRANT ULTRASOUND 08/12/2023 7:25 am COMPARISON: None. HISTORY: ORDERING SYSTEM PROVIDED HISTORY: LUQ pain TECHNOLOGIST PROVIDED HISTORY: This procedure can be scheduled via [employer]. Access your [employer] account by visiting [employer] FINDINGS: LIVER: The liver demonstrates normal echogenicity [...] Signed by: Bret Monson DO 08/12/23 Final resultNormalPromedica Flower HospitalVitamin D 25 OHon 79-26-2587Ncqydwd D 25 OH45.1 ng/mLNormal>29.9Promedica Flower HospitalComment on above:Result Comment: Reference Range: Vitamin D status Range Deficiency <20 ng/mL Mild Deficiency 20-30 ng/mL Sufficiency 30-100 ng/mL Toxicity >100 ng/mLPerformed By: #### PTHNCA, FEBC, FERI, GLYHGB, VD25 #### [facility] [address] [place] [address] Sourcing Intern: Harpal Adair MD #### AGNES OLIVO, AZN #### [facility] [address] [place] [address] Sourcing Intern: Patricio Zuñiga MD #### CP, MG, CDP #### [facility] [address] [place] [address] Sourcing Intern: TORIE Ruizatiyanna Correspondenceon 07-20-8596Hvfnyxh [id number]#1.00[facility]illas Medical CenterED Note-Physicianon 11-11-0849FA Note-PhysicianBasic Information Time Seen: Torres GERONIMOShama 06/09/2023 15:45 Chief Complaint Pt presents to ED with complaints of MALDONADO onset today. History of Present Illness This patient presents to the emergency department chief complaint of maryam. She states that she hasspent $10,000 in the last 2 weeks. She did see her psychiatrist at [facility] today and they are starting her [...] any abdominal pains. She denies any urinary orbowel complaints. Review of Systems Constitutional: Denies weight [...] production, wheezing, hemoptysis, shortness of breath, dyspnea onexertion Gastrointestinal: Denies abdominal pain, unintentional weight loss, difficulty swallowing, indigestion, bloating, cramping, loss of appetite, nausea, vomiting, diarrhea, constipation, hematochezia, melena Genitourinary: Denies any incontinence of urine, dysuria, hematuria, nocturia, polyuria, hesitancy,frequency, urgency, burning Musculoskeletal: Denies joint pain, morning [...] The patient will be discharged home in stablecondition. She is to follow-up with her primary care physician and mental health providers. She is to return to the emergency department for any further problems or concerns. Shared decision making: I discussed the discharge diagnosis and plan of care with the patient. She is in agreement with the plan of care. (more content not included)...[facility]orial Health SystemComment on above:Result Comment: Electronically Signed By: Shama Macdonald PA-C\.br\Date and Time Signed: 07/14/23 19:57 EDT\.br\Electronically Co-Signed By: Alexis Shukla DO\.br\Date and Time Co-Signed: 07/20/23 07:11 ESTCOVID Quick Testingon 16-98-7978Nanrpd [facility] [employer] Other Consultation Noteon 42-18-1137Oyvypdabdijq Note [id number]#1.00[facility] Memorial HospitalConsent for Treatmenton 36-79-1342Feabfqz for Treatment [id number]#1.00TIFFire[facility] Clinical Summaryon 24-68-0827RQ Clinical Summary [id number] ED Clinical Summary Person Information Name: SHAZIA CHOU [place] Age: 32 Years : 1990 Sex: Female Language: Mexican PCP: Jennie Durand DO Marital Status: Phone: [phone] MRN: Visit Id: Visit Reason: Headache; Neck [...] 07/02/2023 15:29:14 07/02/2023 15:29:14 07/02/2023 15:29:14 ADDRESS: [address] [place] [address] [phone] PHYS DOC NOTES: MEDICAL INFORMATION: Prescriptions Given: [...] bedtime). PATIENT EDUCATION INFORMATION: Instructions: Follow up: DIAGNOSIS:NormalE[facility] Hospitaler [facility] CenterED Patient Education Noteon 12-52-3573OI Patient Education NoteNormalSelect Medical Special[facility] Patient Summaryon 43-19-7023WI Patient Summary [address] [place] [address] Patient Discharge Instructions Person Information Name: SHAZIA CHOU Age: 32 Years Arrival Date: 07/02/2023 14:03:05 Discharge Diagnosis: Primary Care Physician: Jennie Durand DO Provider Information Primary Provider: Bakari Chester DO Advanced [employer] Environmental Engineer:Merari Polanco PA-C The exam and treatment you received in the Emergency Department were for an urgent problem and are not intended as complete care. It is important that you follow up with a doctor, nurse practitioner,or physician?s fast food assistant restaurant manager for ongoing care. If your symptoms become [...] opioids can be used to help relieve ohdfionh-gn-ohvcju pain and are often prescribed following a [...] and have fewer risks and side effects. Optionsmay include: ? Pain relievers such as acetaminophen, [...] unused prescription opioids: Find your community drug take- back program or [employer] mail-back program, or flush them down the toilet, following guidance from the Food and Drug Administration (www.fda.gov/Drugs/ResourcesForYou). ? Visit www.cdc.gov/drugoverdose to learn about the risks of opioids abuse and overdose. ? If you believe you may be struggling with addiction, tell your health child care teacher and ask for guidance or call [facility]?S National Helpline at 7-730-660-SDQS. u Source: US Department of Health and Human Services/Center for Disease Control & Prevention [facility] Medications Given: Medication Dose Route No medication (more content not included)...[facility] Consultation Noteon 77-99-7847Nfedcvpvebgi Note [id number]#1.00[facility] Memorial HospitalConsultation Noteon 34-88-5453Ocxcfjbaxftf Note [id number]#1.00TIFSelect Medical Specialty Hospital - Cincinnati NorthCNPNon 98-54-2203FDUVNzfojjbzo (DESTINYFV) SHAZIA CHOU ([id number]) 1990 F Date Time Provider Department 06/15/23 EILEEN ALVAREZ During your visit today, we recorded the following information about you: Clara Durbin, MARCO 06/15/2023 4:57 PM Signed Received clinical notes and test results from [facility] ED visit from 06/10/23. 13 pages. Scanned to chart via [employer]. Routed to provider for review Glen Singh [...] is not alleviating the problem. Patient # [id number] Gorge Betancur 07/03/2023 12:15 PM Signed Per instructions from Dr. Alvarez. LM for patient, also sent message via [employer]. She needs to be back on diamox [...] 40 mg by mouth once daily. - ehgeyufolnde-tnq-oyhe-FA-vit K (BARIATRIC MULTIVITAMINS) 45 mg iron- 800 [...] [*06/10/2023 Encounter Status:Closed by GORGE BETANCUR on 07/03/23[facility] Discharge Instructionson 28-85-7197Gumwbgink Instructions [id number]#1.00CD:127NoOhioHealth Nelsonville Health CenterAcetamnphn Lvlon 26-96-1380Atdeavehskave [Mass/Vol]ug/lKUhf71-42GdfemuUniversity Hospitals St. John Medical CenterComment on above:Performed By: #### 1521643, 5963198, 5647463, 3932622, 5777504, 35786910 ####[facility] [address] [place], [place] [address]Ohbn Diffon 76-45-3134Zuhbqicyw/100 WBC (Bld)0.6 %Normal0.0-2.0[facility]. John Medical CenterComment on above:Order Comment: Order Added by Discern Expert.Performed By: #### 4428246, 7091768, 0181942, 9479457, 8887505, 01399788 ####[facility] [address] [place], [place] [address]Xqlnuvnds/Leukocytes Auto (Bld) [Pure # fraction]0.0 E9/LNormal0.0-0.2[facility] Va Medical CenterComment on above: Order Comment: Order Added by Discern Expert.Performed By: #### 3287002, 1849413, 6795129, 1467778, 7719007, 55634375 ####[facility] [address] [place], [place] [address]Fnhnlekmmhn/100 WBC (Bld)1.9 %Normal 0.0-8.0[facility] John Medical CenterComment on above:Order Comment: Order Added by Discern Expert.Performed By: #### 4505012, 7520759, 4674385, 4031270, 7463264, 10707214 ####[address] [address]Dkacwzyratn/Leukocytes Auto (Bld) [Pure # fraction]0.2 E9/LNormal0.0-0.[address] [facility] Medical CenterComment on above:Order Comment: Order Added by Discern Expert.Performed By: #### 2835691, 6154022, 5961454, 4656078, 8391703, 18618079 ####[address] [address]Opslowjnxaa/100 WBC (Bld)23.4 %Hyerbn68.0-50.0[facility] Comment on above:Order Comment: Order Added by Discern Expert.Performed By: #### 7123915, 0849370, 3406473, 6235240, 7870360, 66581677 ####[address] [address]Mqlydnwstuo/Leukocytes Auto (Bld) [Pure # fraction]2.0 E9/LNormal1.0-4.0[facility] John Medical CenterComment on above:Order Comment: Order Added by Discern Expert.Performed By: #### 2862017, 8125505, 6960224, 0315746, 6663617, 94313739 ####[address] [address]Dgaiazzzt/100 WBC (Bld)6.9 % Normal4.0-14.0[facility] John Medical CenterComment on above:Order Comment: Order Added by Discern Expert.Performed By: #### 8307513, 7970525, 0814996, 5540737, 8483433, 56334489 ####[address] [address]Hrnrcbbsd/Leukocytes Auto (Bld) [Pure # fraction]0.6 E9/L Normal0.2-1.0[facility]. John Medical CenterComment on above:Order Comment: Order Added by Discern Expert.Performed By: #### 1204628, 4668382, 1736054, 6581330, 6484005, 35392934 ####[address] [place], [place] [address]Tyxovdnugzc/100 WBC (Bld)67.2 %Zcypxy66.0-75.0[facility] John Medical CenterComment on above:Order Comment: Order Added by Discern Expert. Performed By: #### 9575080, 8753470, 8486291, 6337359, 0555862, 10827187 ####[address] [address] Neutrophils/Leukocytes Auto (Bld) [Pure # fraction]5.6 E9/LNormal2.0-7.5FCorey HospitalComment on above:Order Comment: Order Added by Discern Expert.Performed By: #### 5662371, 3135260, 5312818, 4498637, 3950549, 29014271 ####[address] [address]PST w/ Auto Diffon 38-06-9717Dwfloxtwwcw distribution width (RBC) [Ratio]18.2 %High 10.9-14.2FCorey HospitalComment on above:Performed By: #### 7051593, 9471557, 0878065, 6144891, 4348423, 17168178 ####[address] [address]Bxcjrdrlyj (Bld) [Volume fraction] 34.3 %Eqsfqi46.0-46.0[facility] John Medical CenterComment on above:Performed By: #### 4413933, 2874668, 0484792, 1045126, 4840247, 15680735 ####[address] [address]Ulhgxplpxp (Bld) [Mass/Vol]11.5 g/dLLow12.0-16.0[facility] John Medical CenterComment on above: Performed By: #### 2246128, 8067408, 9605699, 7634412, 1900760, 69186508 ####[facility] [address] [place], [place] [address]HTG (RBC) [Entitic mass]30.6 gcIanwmi22.0-34.0[facility] John Medical CenterComment on above:Performed By: #### 4963544, 9083608, 3335225, 8660590, 1302349, 04456743 ####[facility] [address] [place] [address]CIPX (RBC) [Mass/Vol]33.6 g/hDVecinn72.4-36.0[facility] John Medical CenterComment on above:Performed By: #### 3643724, 4359931, 9666389, 3014116, 1322396, 30467445 ####[address] [address]GBN (RBC) [Entitic vol]91.0 qUOdtini69.0-100.0[facility] John Medical CenterComment on above:Performed By: #### 0885424, 9423690, 7783029, 6230548, 5931021, 36078804 ####[address] [address] Platelet mean volume (Bld) [Entitic vol]9.8 fLNormal6.4-10.8[facility] John Medical CenterComment on above:Performed By: #### 0178004, 8409069, 5968923, 4395285, 2928500, 82848579 ####[facility] [address] [place] [address]Mcmvhkamc (Bld) [#/Vol]283.0 E9/GFnrjng561.0-500.0[facility] John Medical CenterComment on above:Performed By: #### 7879491, 0205352, 6132773, 0009326, 3175764, 00696759 ####[address] [address]MUX (Bld) [#/Vol]3.8 E12/LLow4.3-5.[address] John Medical CenterComment on above:Performed By: #### 4435144, 3356634, 7229273, 7863069, 0750585, 24194223 ####[address] [place], [place] [address]WOY corrected for nucl RBC Auto (Bld) [#/Vol]8.4 E9/LNormal4.0-11.0[facility] John Medical CenterComment on above: Performed By: #### 6979042, 6205119, 6422820, 0459683, 5484627, 46139124 ####[address] [place], [place] [address]NLVwc 61-71-0785Nvlihfl [Mass/Vol]4.1 g/dLNormal3.3-5.0[facility] Comment on above:Performed By: #### 6833189, 7049879, 5811198, 4716705, 0280809, 39847850 ####[address] [address]Bvqeglb/Globulin (S) [Mass conc ratio]1.5Woavno8.1-2.2[facility] Va Medical CenterComment on above:Performed By: #### 1047606, 8792092, 9088000, 6553141, 0498743, 53505304 ####[address] [place], [place] [address]GUW [Catalytic activity/Vol]58 Int._Unit/DDpjrsd19-02IxucwdUniversity Hospitals St. John Medical CenterComment on above:Performed By: #### 0748834, 0644385, 3290783, 7608158, 0798356, 92010453 ####[address] [place], [place] [address]SMZ No additional P-5'-P [Catalytic activity/Vol]18 Int._Unit/LNormal6-46[facility] John Medical CenterComment on above:Performed By: #### 1329237, 3276560, 9546954, 3902925, 9516945, 51529085 ####[address] [place], [place] [address]BRX [Catalytic activity/Vol]20 Int._Unit/LNormal5-43[facility] Comment on above:Performed By: #### 1506373, 1469271, 7111858, 2987321, 1240546, 91547680 ####[address] [place], [place] [address]Edqzjomra [Mass/Vol]0.1 mg/dLNormal0.0-1.1FCorey Hospital Comment on above:Performed By: #### 6763992, 0010474, 5811732, 5388912, 2365955, 06405199 ####[address] [address]Ibfnjxrjet [Mass/Vol]0.6 mg/dLNormal0.5-1.3FCorey Hospital Comment on above:Performed By: #### 5007127, 4670803, 8585066, 6084777, 6989836, 70674218 ####[address] [address]Yaygfsvk (S) [Mass/Vol]3.2 g/dLNormal1.4-4.0[facility] Comment on above:Performed By: #### 9460022, 9453398, 4320168, 0443554, 8503991, 25388059 ####[address] [address]Iexxzkw [Mass/Vol]7.3 g/dLNormal6.0-7.8[facility] John Medical CenterComment on above:Performed By: #### 0494089, 7889724, 8847425, 9529682, 7467837, 93348061 ####[address] [place], [place] [address]Xxtv nitrogen [Mass/Vol]15 mg/dLNormal5-21[facility] Comment on above:Performed By: #### 0149631, 8252829, 7241420, 6002314, 9244395, 72681683 ####[facility] [address] [place], [place] [address]Fbzr nitrogen/Creatinine [Mass ratio]25 No GjymiWilw53-64MirdsuUniversity Hospitals St. John Medical CenterComment on above:Performed By: #### 9919464, 9553617, 1915836, 1557536, 9515032, 91091770 ####[facility] [address] [place], [place] [address]Wjkqc gap [Moles/Vol]13 mmol/LNormal6-16[facility] John Medical CenterComment on above:Performed By: #### 1394889, 2228996, 1258672, 7807836, 2804440, 68464977 ####[facility] [address] [place], [place] [address]Qeemrgg [Mass/Vol]9.3 mg/dLNormal 8.9-11.1FCorey HospitalComment on above:Performed By: #### 5418351, 6144134, 6366767, 2911154, 8202138, 54149132 ####[facility] [address] [place], [place] [address]Qnhxpmya [Moles/Vol]107 mmol/LNormal 101-111[facility] John Medical CenterComment on above:Performed By: #### 8854204, 8541831, 8779006, 7161923, 7706126, 86682131 ####[facility] [address] [place], [place] [address]SX1 [Moles/Vol]23 mmol/QZvocer13-[address] [facility] Medical CenterComment on above:Performed By: #### 1747666, 1870363, 5305886, 0465398, 6434511, 80674148 ####[facility] [address] [place], [place] [address]Ykwhdod [Mass/Vol]91 mg/dLNormal 55-199[facility] John Medical CenterComment on above:Result Comment: If this glucose result represents a fasting glucose, interpretation should refer tothe following reference range: 55-99 mg/dLPerformed By: #### 3689803, 0031674, 9793946, 2949591, 0437897, 39102442 ####[facility] [address] [place], [place] [address]Jnvorzrbw [Moles/Vol]3.6 mmol/LNormal 3.5-5.3[facility] Medical CenterComment on above:Performed By: #### 8333697, 2765849, 0314076, 4999805, 8135603, 21963227 ####[facility] [address] [place], [place] [address]Thtsdt [Moles/Vol]139 mmol/LNormal 135-145[facility] Medical CenterComment on above:Performed By: #### 0576764, 4312546, 1448282, 0119606, 2989064, 16581082 ####[facility] [address] [place], [place] [address]Tpczwjc for Treatmenton 06-09-2023 Consent for [id number]#1.00CD:127Normal [facility] Clinical Summaryon 19-97-4486BC Clinical Summary [address] [address] ED Clinical Summary Person Information Name: SHAZIA CHOU [place] Age: 32 Years : 1990 Sex: Female Language: Mexican PCP: Jennie Durand DO Marital Status: Phone: [phone] MRN: Visit Id: Visit Reason: Headache; HEADACHE [...] 06/09/2023 18:42:22 06/09/2023 18:42:22 06/09/2023 18:42:22 ADDRESS: [address] [place] [phone] [facility] DOC NOTES: MEDICAL INFORMATION: Prescriptions Given: Medications [...] (at bedtime). PATIENT EDUCATION INFORMATION: Instructions: Paresthesia, Nkxf-gc-Cndk; Migraine Headache, Upyx-dn-Tabp Follow up: With: Address: When: formerly [facility] In 3 days 06/12/2023 With: Address: When: Jennie Durand [address], [place] , [facility] [address] [place] [address] Business (1) In 3 days 06/12/2023 DIAGNOSIS: 1:Headache; 2:Paresthesia of armNormalFisher Mcminn Medical CenterED Patient Education Noteon 66-34-0021IQ Patient Education NoteNeurology Paresthesia Paresthesia is a burning or prickling [...] liquor (44 mL). General instructions ? Take hece-muz-higgfid and prescription medicines only as told by your doctor. ? Do not smoke or use any products that contain nicotine or tobacco. If you need help quitting, askyour doctor. ? If you have diabetes, work [...] provider. Document Revised: 05/12/2022 Document Reviewed: 05/12/2022 [employer] Patient Education ? 2022 [employer] Migraine Headache A migraine headache is [...] such as: ? Tiredness. (more content not included)...[facility] Patient Summaryon 28-06-3916TI Patient Summary [place] [address] Patient Discharge Instructions Person Information Name: SHAZIA CHOU Age: 32 Years Arrival Date: 06/09/2023 15:33:36 Discharge Diagnosis: 1:Headache; 2:Paresthesia of arm Primary Care Physician: Jennie Durand DO Provider Information Primary Provider: Alexis Shukla DO [employer] Environmental Engineer:None The exam and treatment you received in the Emergency Department were for an urgent problem and are not intended as complete care. It is important that you follow up with a doctor, nurse practitioner,or physician?s fast food assistant restaurant manager for ongoing care. If your symptoms become worse or you do not improve as expected and you are unable to reach your usual health care provider, you should return to the Emergency Department. We are available 24 hours a day. SHAZIA CHOU has been given the following list of patient education materials, prescriptions and follow-up instructions: Follow-up Instructions: With: Address: When: formerly [facility] In 3 days 06/12/2023 With: Address: When: Jennie Durand [address], [facility] C, [facility] [address] [place] [address] [facility] (1) In 3 days 06/12/2023 In the event that this physician does not participate in your insurance network, please consult with your insurance company to find a nearby participating provider. Patient Education Materials: Paresthesia, Chzo-nm-Lolq; Migraine Headache, Tglc-dn-Dwil A MESSAGE TO ALL PATIENTS REGARDING OPIOIDS PRESCRIPTION OPIOIDS: WHAT YOU NEED TO KNOW Prescription opioids can be used to help relieve ldomevkm-oy-lrhker pain and are often prescribed following a [...] and have fewer risks and side effects. Optionsmay include: ? Pain relievers such as acetaminophen, [...] unused prescription opioids: Find your community drug take- back program or [employer] mail-back program, or flush them down the toilet, following guidance from the Food and Drug Administration (www.fda.gov/Drugs/ResourcesForYou). ? Visit www.cdc.gov/drugoverdose to learn about the risks of opioids abuse and overdose. ? If you believe you may be struggling with addiction, tell (more content not included)...NormalUniversity Hospitals St. John Medical CenterEthanolon 22-51-2598Rtxpmpk [Mass/Vol]mg/dLNormal<=7FCorey HospitalComment on above:Performed By: #### [id number] ####[facility] [address] [place], [place] [address]Aytmqxgnlvkd 32-97-5877Idkcyloypty [Mass/Vol]mg/dLLow6-[address] John Medical CenterComment on above:Performed By: #### 8199449, 6220329, 1423460, 5230780, 8636876, 32813829 ####[facility] [address] [place], [place] [address]Y Drug Screenon 06-09-2023 Amphetamines Screen method >1000 ng/mL Ql (U)NegativeNormalNegativeUniversity Hospitals St. John Medical CenterComment on above:Result Comment: Negative Cutoff: <1000 ng/mL Performed By: #### [id number] ####[address] [address]Wgcejtxrwpvy Screen Ql (U)NegativeNormalNegative [facility] John Medical CenterComment on above:Result Comment: Negative Cutoff: <200 ng/mLPerformed By: #### [id number] ####[address] [address]Xphvudnlqddfvxg Ql (U)NegativeNormal NegativeUniversity Hospitals St. John Medical CenterComment on above:Result Comment: Negative Cutoff: <200 ng/mLPerformed By: #### [id number] ####[address] [address]Lnobzbn Ql (U)NegativeNormalNegative [facility] John Medical CenterComment on above:Result Comment: Negative Cutoff: <300 ng/mLPerformed By: #### [id number] ####[address] [address]Ulbaxwc Screen Ql (U)NegativeNormal [facility] HospitalComment on above:Result Comment: Negative Cutoff: <300 ng/mLPerformed By: #### [id number] ####[address] [address]Koqgvrnstsezs Screen method >25 ng/mL Ql (U)NegativeNormalNegativeUniversity Hospitals St. John Medical CenterComment on above:Result Comment: Negative Cutoff: <25 ng/mL These drug screen results are to be used for medical (i.e., treatment) purposes only. Unconfirmed drug screening results must not be used for non-medical purposes (e.g., employment testing, legal testing).Performed By: #### [id number] ####[address] [address] Tetrahydrocannabinol Screen method >50 ng/mL Ql (U)NegativeNormalNegativeUniversity Hospitals St. John Medical CenterComment on above:Result Comment: Negative Cutoff: <50 ng/mL Performed By: #### [id number] ####[facility] [address] [place], [place] [address]WL With Cult Reflexon 54-00-0616Yuxbxkpzx Ql (U) NegativeNormalNegMartin Memorial HospitalComment on above:Performed By: #### [id number] #### [facility] Laboratory [address] [place], [place] [address]Yeovmvs (U)CLEARNormalClearUniversity Hospitals St. John Medical CenterComment on above:Performed By: #### [id number] #### [facility] [address] [place], [place] [address]Sjjug (U)YELLOWNormalYellowUniversity Hospitals St. John Medical CenterComment on above:Performed By: #### [id number] #### [facility] [address] [place], [place] [address]Mjvgtjmd LM Ql (Urine sed)PresentNoOhioHealth Nelsonville Health CenterComment on above:Performed By: #### [id number] #### [facility] Laboratory [address] [place], [place] [address]Yyagnrtfyj cells.squamous LM.HPF (Urine sed) [#/Area]0-2Normal 0-2Fisher [facility] CenterComment on above:Performed By: #### [id number] #### [facility] [address] [place], [place] [address]Cwxypch Test strip (U) [Mass/Vol]NegativeNormalNegativeUniversity Hospitals St. John Medical CenterComment on above:Performed By: #### [id number] #### [facility] [address] [place], [place] [address]Dkczcjfosi Ql (U)NegativeNormalNegMartin Memorial HospitalComment on above:Performed By: #### [id number] #### [facility] [address] [place], [place] [address]Tnnfpmm (U) [Mass/Vol]NegativeNormalNegativeUniversity Hospitals St. John Medical CenterComment on above:Performed By: #### [id number] #### [facility] [address] [place], [place] [address]Jnccpbc.plasma/Ansted.RBC (Bld) [Mass ratio]9-6Cpeted7-9Ytfbvo [facility] CenterComment on above:Performed By: #### [id number] #### [facility] [address] [place] [address]Rsdnchy Ql (U)NegativeNormalNegativeUniversity Hospitals St. [facility] Comment on above:Performed By: #### [id number] #### [facility] Laboratory [address] [place] [address]uV (U)6.0 [pH]Invalid Interpretation Code5.0-9.0[facility]. John Medical CenterComment on above:Performed By: #### [id number] #### [facility] Laboratory [address] [place] [address]Vbgvzny (U) [Mass/Vol]NegativeNormalNegativeUniversity Hospitals St. John Medical CenterComment on above:Performed By: #### [id number] #### [facility] Laboratory [address] [place] [address]Dbspoyou gravity (U) [Rel density]1.010Invalid Interpretation Code1.005-1.030[facility] Hospitals St. John Medical CenterComment on above:Performed By: #### [id number] #### [facility] Laboratory [address] [place] [address]Cswz of Urine collection methodClean CatchNormalUniversity Hospitals St. John Medical CenterComment on above:Performed By: #### [id number] #### [facility] Laboratory [address] [place] [address]Kyclyzcvwqkj Qn (U)0.2 {Lucila'U}/dLNormal0.0-1.0[facility] John Medical CenterComment on above:Performed By: #### [id number] #### [facility] [address] [place] [address]KEH Auto Ql (U)NegativeNormalNegativeUniversity Hospitals St. John Medical CenterComment on above:Performed By: #### [id number] #### [facility] [address] [place] [address]ISC LM.HPF (Urine sed) [#/Area]0-3Ilmepd8-8PxbkmfCorey HospitalComment on above:Performed By: #### [id number] #### [facility] [address], [place] [address]pMRQnw 84-06-8719XJW/1.73 sq M.predicted among non-blacks MDRD (S/P/Bld) [Vol rate/Area]121 mL/min/1.73 t2Raefxv>=59FishUniversity [address] [facility] [address] Comment on above:Order Comment: Order added by Discern Expert.Result Comment: Chronic kidney disease could be indicated at eGFR's of less than 60 mL/min/1.73m2. Kidney failure is indicated at less than 15 mL/min/1.73m2. Performed By: #### 1392947, 2561193, 7682583, 6287547, 9459666, 60951162 ####[facility] [address] [place], [place] [address]Ght A on 58-78-9857Blvzmjk [Mass/Vol]42.9 microgram/dLInvalid Interpretation Code 18.9-57.3FCorey HospitalComment on above:Result Comment: Reference intervals for vitamin A determined from [facility] internal studies. Individuals with vitamin A less than 20 ug/dL are considered vitamin A deficient and those with serum concentrations less than 10 ug/dL are considered severely deficient. This test was developed and its performance characteristics determined by [facility]. It has not been cleared or approved by the Food and Drug Administration. Performed at: [address] [id number] MD Shorty Leosformed By: #### 7342051, 53295859, 8688524, 8800678, 19703643, 69700424, 725814019, 2233216, 7509915, 43597424, 6122350, 9302546, 242892045, 43381136, 2519194, 0716058, 6095870, 1493887 ####[facility] [address] [place], [place] [address]Vag B1on 03-24-2023 Thiamine (Bld) [Moles/Vol]171.7 nmol/LInvalid Interpretation Code66.5-200.[address] John Medical CenterComment on above:Result Comment: This test was developed and its performance characteristics determined by [facility]. It has not been cleared or approved by the Food and Drug Administration. Performed at: [address] [id number] MD Shorty Leosformed By: #### 9957933, 50635530, 6552156, 7493073, 91658428, 28771793, 179221526, 6425253, 5336787, 00315717, 5697114, 1283831, 419425636, 09325440, 4913057, 5656883, 1635945, 9799606 ####[facility] [address] [place], [place] [address]Rlvt Lvlon 03-24-2023 Zinc [Mass/Vol]85 microgram/dLInvalid Interpretation Zueg62-362KnrmcdUniversity Hospitals St. John Medical CenterComment on above:Result Comment: This test was developed and its performance characteristics determined by [facility]. It has not been cleared or approved by the Food and Drug Administration. Detection Limit = 5 Performed at: [address] [id number] MD Shorty Leosformed By: #### 4820283, 41501556, 8329137, 1994324, 55197555, 60061565, 841375489, 8347858, 8314524, 11206079, 3234886, 7189560, 453374808, 87368093, 5581736, 7002452, 3532180, 9897149 ####[facility] [address] [place], [place] [address]UDL [place] 42-69-5064Cvhajslicn.intact [Mass/Vol]17 pg/mLInvalid Interpretation Jcsb81-[address] John Medical CenterComment on above:Result Comment: Performed at: [address] [id number] PhD Cordelia Estradaformed By: #### [id number] ####[facility] [address] [place], [place] [address]Xswn Diffon 03-19-2023 Basophils/100 WBC (Bld)1.1 %Normal0.0-2.0[facility] John Medical CenterComment on above:Order Comment: Order Added by Discern Expert.Performed By: #### 7104139, 10440113, 1056562, 3252207, 11105175, 94537586, 466011959, 6740615, 1647767, 37956055, 5578556, 0371314, 295555896, 09634996, 0451803, 6800991, 3958827, 7144557 ####[address] [address]Vzydjifpl/Leukocytes Auto (Bld) [Pure # fraction]0.1 E9/LNormal0.0-0.[address] [facility] Medical CenterComment on above:Order Comment: Order Added by Discern Expert.Performed By: #### 9818737, 53131236, 7312949, 7607989, 37977310, 89939836, 242117748, 1546380, 9299615, 38824155, 2038170, 5069819, 744779921, 78308986, 0771218, 0670652, 4171326, 5229799 ####[address] [address]Uczujwtuxwv/100 WBC (Bld)4.1 %Normal 0.0-8.0[facility] John Medical CenterComment on above:Order Comment: Order Added by Discern Expert.Performed By: #### 1923712, 88133024, 6818988, 7648279, 14792422, 58133748, 976784465, 8148582, 2784436, 73171423, 8553524, 1104745, 209166396, 93016274, 5391713, 0318011, 8402244, 1039670 ####[facility] [place], [place] [address]Xnxaxberibs/Leukocytes Auto (Bld) [Pure # fraction]0.4 E9/LNormal0.0-0.5FCorey HospitalComment on above:Order Comment: Order Added by Discern Expert.Performed By: #### 3867957, 88070813, 1760482, 8945480, 41414085, 64338351, 881840570, 3669355, 6996125, 43439101, 8468925, 9158428, 564174041, 34947453, 3679317, 8189586, 2830821, 7244950 ####[address] [place], [place] [address]Lxojtygluyz/100 WBC (Bld)20.5 %Tlnvfs20.0-50.0[facility] Comment on above:Order Comment: Order Added by Discern Expert.Performed By: #### 2696438, 72245486, 5968204, 1020436, 66725309, 88267966, 456126539, 3079274, 2638102, 80800667, 2827144, 6651346, 339008614, 88466520, 7261946, 7087608, 6809651, 4333279 ####[address] [place], [place] [address]Iqnenfwfani/Leukocytes Auto (Bld) [Pure # fraction]2.1 E9/L Normal1.0-4.0[facility] John Medical CenterComment on above:Order Comment: Order Added by Discern Expert.Performed By: #### 7144379, 47714721, 0484872, 5363348, 45694344, 48834560, 519084859, 5828839, 7556697, 12581381, 9501454, 1665679, 373320193, 55105675, 8513306, 2581998, 4357172, 4465449 ####[address] [place], [place] [address]Ogogbwguj/100 WBC (Bld)7.6 % Normal4.0-14.0[facility] John Medical CenterComment on above:Order Comment: Order Added by Discern Expert.Performed By: #### 8695137, 99721492, 1800181, 0066066, 88740742, 17968079, 243837476, 1484442, 8233211, 26290029, 3443338, 7079572, 514265516, 97426564, 5879911, 0968871, 1811723, 1337538 ####[facility] [address] [place], [place] [address]Iqqqneuwv/Leukocytes Auto (Bld) [Pure # fraction]0.8 E9/LNormal0.2-1.0[facility] John Medical CenterComment on above:Order Comment: Order Added by Discern Expert.Performed By: #### 3133836, 26834348, 4309437, 1303959, 00390779, 10051409, 943394659, 6762775, 0119668, 44319272, 5067957, 8700419, 721757871, 37478696, 4979003, 0716533, 2471549, 8983458 ####[address] [place], [place] [address]Flnenqfbnnm/100 WBC (Bld)66.7 %Njtqnp95.0-75.0[facility] John Medical CenterComment on above:Order Comment: Order Added by Discern Expert. Performed By: #### 3245099, 15242005, 5925678, 5812795, 12722313, 42758608, 004350646, 3064429, 5197796, 73011183, 4372812, 7110145, 728037080, 72447867, 9651598, 9509638, 9833751, 9331778 ####[address] [place], [place] [address]Mzqfwatqdtv/Leukocytes Auto (Bld) [Pure # fraction] 6.8 E9/LNormal2.0-7.5FCorey HospitalComment on above:Order Comment: Order Added by Discern Expert.Performed By: #### 0924821, 50654539, 4513725, 3514063, 84344883, 20344309, 542738597, 6600274, 0308414, 46858101, 5649138, 0311304, 484362414, 78622280, 8184671, 5742618, 6936585, 8237905 ####[address] [place], [place] [address]MHW w/ Auto Diffon 05-17-7431Bxyhbdvdura distribution width (RBC) [Ratio]16.0 %High10.9-14.2FCorey HospitalComment on above:Performed By: #### 0352379, 58595785, 3668837, 2995274, 85280794, 74498016, 324998680, 9128151, 7406791, 26356172, 2765860, 0650241, 882868376, 77166376, 1282785, 0927236, 7901692, 3183277 ####[address] [place] [address] Hematocrit (Bld) [Volume fraction]37.1 %Fihyeu33.0-46.0[facility] John Medical CenterComment on above:Performed By: #### 0258939, 39173454, 7282921, 3755173, 13747962, 06978097, 414084145, 4516213, 0743017, 60674086, 6401931, 2171066, 375139094, 95215813, 9714602, 1515848, 8353460, 9802198 ####[address] [place], [place] [address]Rullrrhuco (Bld) [Mass/Vol] 12.6 g/nWUgsisg18.0-16.0[facility] Medical CenterComment on above:Performed By: #### 6070210, 31636889, 6131215, 4674607, 73768325, 06737803, 263406692, 2300327, 7473683, 69168734, 0517547, 1490448, 324204724, 83174502, 9986549, 5777214, 5580798, 8272419 ####[facility] [address] [place], [place] [address]URP (RBC) [Entitic mass]31.2 zwVpnvgx42.0-34.0[facility] Medical CenterComment on above:Performed By: #### 1094789, 66079638, 6658534, 0431058, 43462515, 35879355, 431832374, 1058367, 9261012, 25186033, 9469839, 8875965, 161537120, 59115017, 7904300, 8070821, 6782477, 9425472 ####[facility] [address] [place], [place] [address]TKVS (RBC) [Mass/Vol] 33.9 g/jPFxjoay13.4-36.0[facility] John Medical CenterComment on above:Performed By: #### 4819931, 11474286, 6105999, 1071048, 58500165, 97671940, 711732532, 8144330, 4541201, 79448136, 8008878, 1296414, 537296945, 10542989, 6820155, 5281255, 1368938, 6190347 ####[address] [place], [place] [address]UPE (RBC) [Entitic vol]92.0 iACgnalh57.0-100.0[facility] Medical CenterComment on above:Performed By: #### 6141549, 43117052, 9886251, 2955363, 76772101, 28931256, 291303333, 7739028, 3733827, 48155063, 8590732, 7798727, 975617442, 75611295, 4279573, 1601166, 2905249, 3288282 ####[address] [address]Utedrfhw mean volume (Bld) [Entitic vol]9.8 fLNormal6.4-10.8[facility] John Medical CenterComment on above:Performed By: #### 5266402, 43975562, 1406105, 5215709, 18900097, 80301671, 025472881, 6522960, 6151048, 01010719, 7808803, 5545320, 688498594, 30947749, 9333601, 8469497, 4562742, 8817142 ####[facility] [address] [place], [place] [address]Wscxzakyy (Bld) [#/Vol]369.0 E9/L Yahidb592.0-500.0[facility] John Medical CenterComment on above:Performed By: #### 8779841, 18022497, 0706733, 2385541, 59004792, 03675708, 743136359, 1427039, 8107855, 52017743, 7934100, 8404965, 510777436, 79287434, 2281212, 9851658, 4831779, 6509005 ####[address] [address]ACC (Bld) [#/Vol]4.0 E12/LLow4.3-5.9[facility] John Medical CenterComment on above:Performed By: #### 3960876, 11962341, 6629628, 6185784, 29025692, 62760841, 353775184, 7899573, 3889943, 96264125, 1734985, 7065868, 459737180, 99771347, 7153272, 7931465, 0177276, 4953670 ####[address] [address]LZD corrected for nucl RBC Auto (Bld) [#/Vol]10.1 E9/LNormal4.0-11.0[facility] John Medical CenterComment on above:Performed By: #### 6946497, 38956280, 5374942, 8265033, 00148286, 38683341, 911488926, 1180671, 1747136, 18715099, 3134554, 6909763, 643190348, 69695437, 3313020, 9028259, 3069770, 4276228 ####[facility] [address] [place], [place] [address]TIOSRRANYRydyxnp By: [place] on 159[address]-imjgxdhsrfbzny D3 [Mass/Vol]43.1 ng/cKLwhnvt93.0 - 100.0 ng/mLFTMC RemisolAlbumin [Mass/Vol]4.0 g/dLNormal3.3 - 5.0 gm/dLFTMC Remisol Albumin/Globulin [Mass ratio]1.2 {ratio}Normal1.1 - 2.2FTMC RemisolALP [Catalytic activity/Vol]61 [iU]/fFpzzjq29 - 98 Int._Unit/LFTMC RemisolALT No additional P-5'-P [Catalytic activity/Vol]17 [iU]/dNormal6 - 46 Int._Unit/LFTMC RemisolAnion gap [Moles/Vol]9 mmol/LNormal6 - 16 mEq/LFTMC RemisolAST [Catalytic activity/Vol]20 [iU]/dNormal5 - 43 Int._Unit/LFTMC RemisolBilirubin [Mass/Vol] 0.4 mg/dLNormal0.0 - 1.1 mg/dLFTMC RemisolCalcium [Mass/Vol]9.2 mg/dLNormal8.9 - 11.1 mg/dLFTMC RemisolChloride [Moles/Vol]113 mmol/PKcys717 - 111 mmol/LFTMC RemisolCholesterol [Mass/Vol]167 mg/jNXukbca361 - 200 mg/dLFTMC Remisol Cholesterol in HDL [Mass/Vol]72 mg/dLInvalid Interpretation CodeFTMC Remisol Cholesterol in LDL [Mass/Vol]72 mg/dLNormal<=129mg/dLFTMC RemisolCholesterol in VLDL [Mass/Vol]14 mg/dLNormal7 - 40 mg/dLFTMC RemisolCO2 [Moles/Vol]22 mmol/L Lpvuhb09 - 31 mmol/LFTMC RemisolCobalamin (Vitamin B12) [Mass/Vol]357 pg/mL Punrpc94 - 1500 pg/mLFTMC RemisolCreatinine [Mass/Vol]0.7 mg/dLNormal0.5 - 1.3 mg/dLFTMC RemisolFerritin [Mass/Vol]6 ng/mLLow11 - 307 ng/mLFTMC RemisolFolate [Mass/Vol]15.6 ng/mLNormal>=6.7ng/mLFTMC RemisolFree T4 [Mass/Vol]0.88 ng/dL Normal0.58 - 1.64 ng/dLFTMC RemisolGFR/1.73 sq M.predicted among non-blacks MDRD (S/P/Bld) [Vol rate/Area]116 mL/min/1.73 x7Wligwv>=59mL/min/1.73 m2FTMC Chem S Globulin (S) [Mass/Vol]3.2 g/dLNormal1.4 - 4.0 gm/dLFTMC RemisolGlucose [Mass/Vol]103 mg/pLRwzhcj78 - 199 mg/dLFTMC RemisolIron [Mass/Vol]69 ug/dLNormal 35 - 153 mcg/dLFTMC RemisolIron binding capacity [Mass/Vol]423 ug/cXObpr729 - 400 mcg/dLFTMC RemisolMagnesium [Mass/Vol]2.0 mg/dLNormal1.3 - 2.4 mg/dLFTMC RemisolPotassium [Moles/Vol]3.8 mmol/LNormal3.5 - 5.3 mmol/LFTMC RemisolProtein [Mass/Vol]7.2 g/dLNormal6.0 - 7.8 gm/dLFTMC RemisolSodium [Moles/Vol]140 mmol/L Pqftal288 - 145 mmol/LFTMC RemisolTransferrin [Mass/Vol]302 mg/uBIqjbrc466 - 370 mg/dLFTMC RemisolTriglyceride [Mass/Vol]69 mg/dLNormal<=149mg/dLFTMC RemisolTSH Qn0.61 m[IU]/LNormal0.34 - 5.60 mcIU/mLFTMC RemisolUrea nitrogen [Mass/Vol]12 mg/dLNormal5 - 21 mg/dLIN[facility] RemisolUrea nitrogen/Creatinine [Mass ratio]17 mg/mg Ewzenr03 - 20[facility] RemisolCHEMISTRYOrdered By: Radha Ulloa on 03-19-2023 HbA1c (Bld) [Mass fraction]5.8 %Normal<=5.9%[facility] ChemAutoSSCMPon 03-19-2023 Albumin [Mass/Vol]4.0 g/dLNormal3.3-5.0[facility] Medical CenterComment on above:Performed By: #### 4132861, 90417917, 2131997, 5899728, 52257941, 73029693, 848296769, 2281680, 5515927, 42347276, 0674168, 5211385, 197303463, 02328716, 4618021, 4345910, 8154207, 0834791 ####[facility] [address] [place], [place] [address]Thquhcw/Globulin (S) [Mass conc ratio]1.0Wkpazg4.1-2.2FCorey HospitalComment on above:Performed By: #### 1165957, 74537026, 4120530, 9927543, 64436436, 92231814, 698319286, 5982288, 5387581, 49009182, 4761671, 0405679, 459679573, 60971140, 0705692, 1158042, 2498997, 3561277 ####[facility] [address] [place], [place] [address]GCW [Catalytic activity/Vol]61 Int._Unit/UPmaosy27-59MjshtcUniversity Hospitals St. John Medical CenterComment on above:Performed By: #### 9890993, 60032145, 1914998, 1062789, 01478279, 97193593, 863598213, 5535224, 9957828, 95048078, 0982845, 0474059, 371428455, 54079817, 2282467, 6943562, 7593710, 7483079 ####[address] [place], [place] [address]JNQ No additional P-5'-P [Catalytic activity/Vol]17 Int._Unit/LNormal6-46[facility] John Medical CenterComment on above:Performed By: #### 4600918, 92285367, 2592619, 0035348, 73682667, 34625830, 073372188, 9453315, 7284960, 94913519, 4636585, 2389773, 087032162, 60506680, 0486323, 0174082, 6380890, 2194339 ####[address] [place], [place] [address]Qzgvu gap [Moles/Vol]9 mmol/LNormal6-16[facility] John Medical CenterComment on above:Performed By: #### 9154850, 39595233, 7337785, 9498266, 73341340, 00619067, 326019968, 8982724, 0075750, 54176174, 5978338, 2543094, 513878234, 06547762, 9014820, 9830587, 8510731, 7517142 ####[address] [address]XYL [Catalytic activity/Vol]20 Int._Unit/LNormal5-43[facility] Medical CenterComment on above:Performed By: #### 1565084, 73644395, 5788393, 7023290, 45262220, 97290346, 708792008, 3286377, 0447042, 79988977, 6759844, 9904863, 778563666, 54502576, 6798087, 9170510, 9700057, 6624966 ####[address] [place] [address] Bilirubin [Mass/Vol]0.4 mg/dLNormal0.0-1.1FCorey HospitalComment on above:Performed By: #### 5836589, 59035221, 9660492, 9620392, 50453747, 86966362, 468382089, 6866388, 5054351, 65288661, 3976072, 7348208, 480958448, 24999687, 0600218, 8001397, 8130177, 7392432 ####[facility] [address] [place], [place] [address]Ogklpvk [Mass/Vol]9.2 mg/dLNormal 8.9-11.1FCorey HospitalComment on above:Performed By: #### 8506705, 59670445, 2883711, 7025936, 32412163, 73758130, 964335762, 3509129, 7751912, 62938054, 4057678, 5916734, 996560901, 27642203, 1258227, 3947994, 8410280, 0177921 ####[facility] [address] [place], [place] [address]Frvvdcpm [Moles/Vol]113 mmol/FVikb765-844GilpohUniversity Hospitals St. John Medical CenterComment on above:Performed By: #### [id number], [id number], 0854191, 1622928, 65801647, 64579285, [id number], 4633862, 4781481, 98997431, 2323844, 3862339, 282922976, 43205617, 8552270, 0229997, 8493016, 7056028 ####[facility] [address] [place], [place] [address]SJ6 [Moles/Vol]22 mmol/SCjavvs68-[address] [facility] Medical CenterComment on above:Performed By: #### [id number], [id number], 3937327, 3056973, 92473124, 51340456, 380400441, 2703479, 6735340, 79828701, 3622582, 8130170, [id number], 89426208, 1172667, 1807512, 1348120, 4381845 ####[facility] [address] [place], [place] [address]Phldesjdhv [Mass/Vol]0.7 mg/dLNormal0.5-1.3FCorey Hospital Comment on above:Performed By: #### 1166974, 42357343, 5497051, 9528294, 90694529, 89405547, 864427005, 1334397, 5398042, 59872721, 1789823, 3828929, 725301550, 10590947, 7076254, 8426056, 9376473, 4415226 ####[facility] [address] [place], [place] [address]Yzcbglgf (S) [Mass/Vol]3.2 g/dLNormal1.4-4.0[facility] John Medical CenterComment on above:Performed By: #### 6918357, 09783271, 7701816, 1467937, 96155116, 03340759, 162570950, 3681142, 8295576, 16501888, 6094638, 2830976, 953497405, 84011709, 5950487, 2821565, 9361607, 1911327 ####[facility] [address] [place], [place] [address]Sznbmlh [Mass/Vol]103 mg/aTOdgtwg87-471CpvuoqUniversity Hospitals St. John Medical CenterComment on above:Result Comment: If this glucose result represents a fasting glucose, interpretation should refer tothe following reference range: 55-99 mg/dLPerformed By: #### 2490670, 87996766, 4480465, 3537410, 90650723, 15770971, 342615354, 7620153, 8428338, 46949793, 7800473, 4692082, 928991239, 01429727, 3824752, 6901784, 1320405, 1939992 ####[facility] [address] [place], [place] [address]Jsvtrugxp [Moles/Vol]3.8 mmol/LNormal 3.5-5.3FCorey HospitalComment on above:Performed By: #### 1634804, 83049427, 1640280, 6072887, 31613723, 54852201, 805619009, 0480688, 0173989, 82913517, 2132933, 6029215, 781433045, 04882047, 7025267, 2998109, 2972583, 4357360 ####[facility] [address] [place], [place] [address]Snvhfsq [Mass/Vol]7.2 g/dLNormal6.0-7.8[facility] John Medical CenterComment on above:Performed By: #### 7277932, 95802596, 5969480, 0064962, 28909897, 48536372, 141419985, 8166352, 9899018, 90543790, 4828005, 6923624, 185295893, 62216599, 5533135, 0168558, 6799903, 6162844 ####[address] [address]Ywhsmr [Moles/Vol]140 mmol/LNormal 135-145[facility] John Medical CenterComment on above:Performed By: #### 9444165, 62521125, 9939966, 6394516, 25543907, 86091723, 227670606, 3102830, 3035344, 46085908, 3798230, 0535521, 244206383, 11688216, 4941951, 3894562, 3608946, 5227045 ####[address] [place], [place] [address]Wcdq nitrogen [Mass/Vol]12 mg/dLNormal5-21[facility] Comment on above:Performed By: #### 4073223, 52356309, 8823363, 8530837, 83679908, 07994416, 678866919, 1928241, 9212490, 73108338, 9850291, 5156723, 767298616, 75610140, 5898678, 9841535, 3955591, 3990289 ####[address] [address]Ncmj nitrogen/Creatinine [Mass ratio]17 No AjxyrUawdid18-52GuuuvdUniversity Hospitals St. John Medical CenterComment on above: Performed By: #### 3655838, 53750581, 6954733, 9965712, 67745283, 76928051, 296118766, 7652278, 1376357, 48063697, 9674042, 2520292, 453852299, 06561220, 7910814, 3858216, 9936680, 1854203 ####[facility] [address] [place], [place] [address]Ndqsxzu for Treatmenton 07-85-4497Bmueqbm for [id number]#1.00CD:127NormalUniversity Hospitals St. John Medical CenterFerritinon 35-65-8920Xilyezbq [Mass/Vol]6 ng/oZZni06-627WivnbrUniversity Hospitals St. John Medical CenterComment on above:Result Comment: NORMALS MEN <30 YRS 16-132 ng/mL MEN >30 YRS 8-338 ng/mL WOMEN (PREMEN) 6-104 ng/mL WOMEN (POSTMEN) 12-210 ng/mLPerformed By: #### 2467580, 98428696, 7355531, 2379312, 75643226, 17389736, 908995068, 9754456, 1392691, 60805277, 2936496, 4167648, 338589170, 29008325, 4300472, 0010291, 1537614, 1350955 ####[facility] [address] [place], [place] [address]Jejuzfcv 03-19-2023 Folate [Mass/Vol]15.6 ng/mLNormal>=6.7FCorey HospitalComment on above:Performed By: #### 0242762, 68720309, 7789386, 2246085, 75015881, 08850293, 073421285, 5541680, 8701040, 91561481, 6912653, 8068473, 187671320, 67383459, 0490327, 9065731, 5340480, 0656534 ####[facility] [address] [place], [place] [address]Vhqj T4on 70-66-7874Rwqx T4 [Mass/Vol]0.88 ng/dLNormal0.58-1.64[facility] John Medical CenterComment on above: Performed By: #### 5723472, 68903800, 5832462, 2364440, 64821805, 32180151, 520848514, 9159285, 3794951, 70649355, 6654016, 4831025, 011996869, 37166968, 7819563, 4261202, 3734495, 5786761 ####[facility] [address] [place], [place] [address]NBELAEXYOYAvdojua By: SYSTEM SYSTEM on 03-19-2023 Basophils/100 WBC (Bld)1.1 %Normal0.0 - 2.0 %[facility] HemeAutoSSBasophils/Leukocytes Auto (Bld) [Pure # fraction]0.1 E9/LNormal0.0 - 0.2 E9/LFTMC HemeAutoSS Eosinophils/100 WBC (Bld)4.1 %Normal0.0 - 8.0 %[facility] HemeAutoSS Eosinophils/Leukocytes Auto (Bld) [Pure # fraction]0.4 E9/LNormal0.0 - 0.5 E9/L [facility] HemeAutoSSLymphocytes/100 WBC (Bld)20.5 %Kaozit51.0 - 50.0 %[facility] HemeAutoSS Lymphocytes/Leukocytes Auto (Bld) [Pure # fraction]2.1 E9/LNormal1.0 - 4.0 E9/L [facility] HemeAutoSSMonocytes/100 WBC (Bld)7.6 %Normal4.0 - 14.0 %[facility] HemeAutoSS Monocytes/Leukocytes Auto (Bld) [Pure # fraction]0.8 E9/LNormal0.2 - 1.0 E9/L [facility] HemeAutoSSNeutrophils/100 WBC (Bld)66.7 %Eosrxb74.0 - 75.0 %[facility] HemeAutoSS Neutrophils/Leukocytes Auto (Bld) [Pure # fraction]6.8 E9/LNormal2.0 - 7.5 E9/L [facility] HemeAutoSSHEMATOLOGYOrdered By: Yoli Robert on 91-71-0842Bvdrdjtvmax distribution width (RBC) [Ratio]16.0 %High10.9 - 14.2 %[facility] HemeAutoSSHematocrit (Bld) [Volume fraction]37.1 %Wyrehs34.0 - 46.0 %[facility] HemeAutoSSHemoglobin (Bld) [Mass/Vol]12.6 g/iZRgxozo38.0 - 16.0 gm/dLFTMC HemeAutoSSMCH (RBC) [Entitic mass]31.2 ovGfzbag95.0 - 34.0 pgFTMC HemeAutoSSMCHC (RBC) [Mass/Vol]33.9 g/dL Bjkbex86.4 - 36.0 gm/dLFTMC HemeAutoSSMCV (RBC) [Entitic vol]92.0 lQUolqug18.0 - 100.0 fLFTMC HemeAutoSSPlatelet mean volume (Bld) [Entitic vol]9.8 fLNormal6.4 - 10.8 fLFTMC HemeAutoSSPlatelets (Bld) [#/Vol]369.0 E9/BElymne665.0 - 500.0 E9/L [facility] HemeAutoSSRBC (Bld) [#/Vol]4.0 E12/LLow4.3 - 5.9 E12/LFTMC HemeAutoSSWBC corrected for nucl RBC Auto (Bld) [#/Vol]10.1 E9/LNormal4.0 - 11.0 E9/LFTMC MpdiQsinOQNeoP4bgr 19-37-4088EtX7l (Bld) [Mass fraction]5.8 %Normal<=5.9[facility] John Medical CenterComment on above:Performed By: #### 0220449, 57213784, 1383840, 1293922, 19971951, 62456422, 721767644, 3908753, 1107435, 66095241, 4665329, 1492412, 942620667, 33283802, 5077671, 8997264, 5875837, 8606504 ####[facility] [address] [place], [place] [address]Zzgwut 09-02-8492Iugd [Mass/Vol]69 microgram/lBKbzvsk08-360HjygaoUniversity Hospitals St. John Medical Center Comment on above:Performed By: #### 2162297, 77135837, 0830190, 2241376, 95001977, 42287620, 664272386, 3125045, 4822852, 94520698, 2172825, 2517124, 841584803, 17323397, 4899665, 4624221, 5895348, 5171215 ####[facility] [address] [place], [place] [address]Jyplp Panelon 03-19-2023 Cholesterol [Mass/Vol]167 mg/yRRactdq463-294WwmgkuUniversity Hospitals St. John Medical CenterComment on above:Performed By: #### 0102440, 31348016, 7203122, 6107362, 55538882, 28002866, 139994167, 2610946, 5784778, 65976397, 9681753, 5217743, 882753454, 57547417, 4805774, 2690531, 0108586, 4029348 ####[facility] [address] [place], [place] [address]Qqngvzftoda in HDL [Mass/Vol]72 mg/dL Invalid Interpretation [facility] HospitalComment on above:Result Comment: HDL > or equal to 60 mg/dL: Low cardiovascular risk HDL < 40 mg/dL : High cardiovascular riskPerformed By: #### 2469367, 53476652, 5333469, 4141115, 00384346, 36794420, 498609684, 3073133, 8790053, 93005281, 3646029, 5887999, 047115178, 49666280, 9211390, 4469479, 3123818, 7650706 ####[facility] [address] [place] [address] Cholesterol in LDL [Mass/Vol]72 mg/dLNormal<=129[facility] Comment on above:Performed By: #### 1561598, 91276937, 7638679, 1158646, 23620706, 09229765, 987937872, 9039958, 6705520, 90108508, 9880723, 4893362, 653782722, 87956700, 6140119, 1937675, 9192346, 0320237 ####[facility] [address] [place], [place] [address]Gotlncxcvfd in VLDL [Mass/Vol] 14 mg/dLNormal7-40[facility] John Medical CenterComment on above:Performed By: #### 2845076, 91431801, 6106482, 9645930, 22913176, 09734165, 255547732, 4173405, 5902226, 16138797, 9087550, 3530374, 877932017, 62977616, 1234572, 8892201, 2743304, 0813699 ####[address] [place], [place] [address]Pmuaainviclb [Mass/Vol]69 mg/dLNormal<=149[facility] John Medical CenterComment on above:Performed By: #### 7157574, 94676514, 1418515, 5310055, 30110624, 83502485, 936214677, 6817875, 1610133, 29000251, 5105297, 1255117, 274181212, 33601859, 5005031, 5679744, 5973705, 0704543 ####[address] [place], [place] [address]Ddwncpefayj 64-58-9310Smevhoaln [Mass/Vol]2.0 mg/dLNormal1.3-2.4FCorey Hospital Comment on above:Performed By: #### 8373128, 74418861, 9054221, 6306030, 27557021, 28239672, 584962520, 5486184, 1201650, 44602695, 2154454, 9821070, 888878540, 40457596, 5502344, 0305132, 1072098, 0275193 ####[facility] [address] [facility]os[facility] hospital [place], [place] [address]Fdsxokkdn Orderon 03-19-2023 Physician [id number]#1.00CD:127NormalUniversity Hospitals St. John Medical CenterTIBC Calculatedon 19-28-2622Izdk binding capacity [Mass/Vol] 423 microgram/hSSske399-823RflfslUniversity Hospitals St. John Medical CenterComment on above:Performed By: #### 2092362, 37072956, 5210235, 4859652, 44606092, 65710116, 416640345, 9603137, 4472748, 24030923, 0075967, 7060898, 156218425, 14581626, 8729630, 6866119, 5900215, 3206959 ####[address] [place], [place] [address]Mwuvpsvmylw [Mass/Vol]302 mg/eRCacmiy862-603NgmfwzUniversity Hospitals St. John Medical CenterComment on above:Performed By: #### 3514276, 30007073, 2761870, 3054628, 30974126, 79596626, 318886361, 5597604, 5552650, 51273646, 9932896, 8973806, 665378109, 18391495, 3289807, 1443121, 8075625, 8832502 ####[address] Barrientosbr[facility] hospital centercrystalS[place], [place] [address]WEUdo 43-70-3901ACA Qn0.61 m[IU]/LNormal0.34-5.60[facility] John Medical CenterComment on above: Performed By: #### 0958895, 60397266, 4452550, 4194859, 25071382, 82035174, 947333121, 6804609, 8060639, 71586175, 0302232, 3558809, 574226713, 74597883, 9664835, 5679425, 9316036, 8639218 ####[facility] [address] [place], [place] [address]Nxh B12on 12-74-5969Yrsifeviv (Vitamin B12) [Mass/Vol]357 pg/yCCvkggl52-3580YvcuedUniversity Hospitals St. John Medical CenterComment on above: Performed By: #### 2863148, 01809451, 4307858, 4967077, 24224298, 73787795, 519199531, 7104568, 6797659, 82459569, 4555650, 9286605, 693447894, 79440161, 9867306, 5090800, 6059966, 9703379 ####[facility] [address] [place], [place] [address]Prstokw D 25 Hydroxyon 94-77-560922048670-otrxpsvhtpvrku D3 [Mass/Vol]43.1 ng/mWKgcqoz85.0-100.0[facility] St. John Medical CenterComment on above:Result Comment: Vitamin D deficiency has been defined as a level of serum 25-OH vitamin D less than 20 ng/mL (1,2) by the [place] of Medicine and an Endocrine Society practice guideline. The Endocrine Society further defined vitamin D insufficiency as a level between 21 and 29 ng/mL (2). 1. IOM ([place] of Medicine). 2010. Dietary reference intakes for calcium and D. [place]: The National Academies Press. 2. Willard WOLF, Luisa HUBBARD, Nestor MALDONADO, et al. Evaluation, treatment, and prevention of vitamin D deficiency: an Endocrine Society clinical practice guideline. JCEM. 2010; 96 (7):1911-30.Performed By: #### 0580474, 65183475, 6620941, 2756153, 18810759, 26767579, 892587900, 2255030, 8424401, 99091221, 9734154, 3840120, 665608507, 34898423, 4696264, 5862049, 6803267, 5944084 ####[facility] [address] [place], [place] [address]iUZSnb 39-80-2306XZP/1.73 sq M.predicted among non-blacks MDRD (S/P/Bld) [Vol rate/Area]116 mL/min/1.73 z9Qfylbs>=59[facility] [address] John Medical CenterComment on above:Order Comment: Order added by Discern Expert.Result Comment: Chronic kidney disease could be indicated at eGFR's of less than 60 mL/min/1.73m2. K idney failure is indicated at less than 15 mL/min/1.73m2.Performed By: #### 4072582, 44010557, 2158286, 6056432, 76685601, 25297281, 417895643, 9068686, 6322886, 39419443, 3326151, 2413551, 957333846, 09491304, 5316611, 4483967, 7219317, 2539572 ####[facility] [address] [place], [place] [address]BQD Head veins WO and W contrast Ramón 05-46-6621SSZQLSGDVO: Unremarkable MRV head with and without contrast. Plush Brusher: WILLIAM Transcribe Date/Time: Jan 29 2023 2:40P Dictated by : JENNIFER RUVALCABA MD This examination was interpreted and the report reviewed and electronically signed by: JENNIFER RUVALCABA MD on Jan 29 2023 2:44PM [facility] DIVISION OF RADIOLOGY* * *Final Report* * * DATE OF EXAM: Jan 29 2023 1:10PM [facility] 0336 - MRV BRAIN WO/W IVCON / PROCEDURE REASON: Idiopathic intracranial hypertension * * * * Physician Interpretation * * * * EXAMINATION: MRV BRAIN WO/W IVCON CLINICAL HISTORY: Idiopathic intracranial hypertension. TECHNIQUE: Intracranial 2-D jbsm-li-vemfav and postcontrast MRV with post-processing performed at the modality and 2D multiplanar and 3D maximum intensity projections were created, reviewed and archived. Contrast dose: 17 mL Dotarem administered intravenously. MQ: MRAB_4 COMPARISON: None. RESULT: INTRACRANIAL MRV: There is no evidence of significant narrowing, occlusion, or thrombosis of the dural venous sinuses. Note is made of a partially empty sella. DIVISION OF RADIOLOGYProvider, [facility] - [facility]/29/[facility]23 * * *Final Report* * * DATE OF EXAM: Jan 29 2023 1:10PM [facility] 0336 - MRV BRAIN WO/W IVCON / PROCEDURE REASON: Idiopathic intracranial hypertension * * * * Physician Interpretation * * * * EXAMINATION: MRV BRAIN WO/W IVCON CLINICAL HISTORY: Idiopathic intracranial hypertension. TECHNIQUE: Intracranial 2-D dvke-bs-czotxc and postcontrast MRV with post-processing performed at [...] Unremarkable MRV head with and without contrast. Plush Brusher: WILLIAM Transcribe Date/Time: Jan 29 2023 2:40P Dictated by : JENNIFER RUVALCABA MD This examination was interpreted and the report reviewed and electronically signed by: JENNIFER RUVALCABA MD on Jan 29 2023 2:44PM EST [facility] CenterRad[facility] observation (narrative)[facility] Head veins WO and W contrast IVOrdered By: Ccf Provider on 75-35-7910[facility] CHEMISTRYOrdered By: SYSTEM SYSTEM on 00-90-2543Yzfiajk [Mass/Vol]3.7 g/dLNormal 3.3 - 5.0 gm/dLFT RemisolAlbumin/Globulin [Mass ratio]1.2 {ratio}Normal1.1 - 2.2[facility] RemisolALP [Catalytic activity/Vol]65 [iU]/mWlxuog93 - 98 Int._Unit/L [facility] RemisolALT No additional P-5'-P [Catalytic activity/Vol]13 [iU]/dNormal6 - 46 Int._Unit/LFT[facility] RemisolAnion gap [Moles/Vol]12 mmol/LNormal6 - 16 mEq/L[facility] RemisolAST [Catalytic activity/Vol]21 [iU]/dNormal5 - 43 Int._Unit/L[facility] Remisol Bilirubin [Mass/Vol]0.5 mg/dLNormal0.0 - 1.1 mg/dLFTMC RemisolBilirubin.direct [Mass/Vol]0.2 mg/dLNormal0.1 - 0.4 mg/dLFTMC RemisolBilirubin.indirect [Mass or moles/Vol]0.3 mg/dLNormal0.1 - 0.9 mg/dLFTMC RemisolCalcium [Mass/Vol]8.8 mg/dL Low8.9 - 11.1 mg/dLFTMC RemisolChloride [Moles/Vol]109 mmol/FJdpeog886 - 111 mmol/LFT[facility] RemisolCO2 [Moles/Vol]20 mmol/LLow21 - 31 mmol/LFTMC Remisol Creatinine [Mass/Vol]0.8 mg/dLNormal0.5 - 1.3 mg/dLFTMC RemisolGFR/1.73 sq M.predicted among non-blacks MDRD (S/P/Bld) [Vol rate/Area]99 mL/min/1.73 m2 Normal>=59mL/min/1.73 m2FT Chem SGlobulin (S) [Mass/Vol]3.0 g/dLNormal1.4 - 4.0 gm/dLFTMC RemisolGlucose [Mass/Vol]89 mg/cNGulbfg09 - 199 mg/dLFTMC Remisol Potassium [Moles/Vol]3.8 mmol/LNormal3.5 - 5.3 mmol/LFTMC RemisolProtein [Mass/Vol]6.7 g/dLNormal6.0 - 7.8 gm/dLFTMC RemisolSodium [Moles/Vol]137 mmol/L Izwavc841 - 145 mmol/LFTMC RemisolTroponin I.cardiac [Mass/Vol]pg/mLLow10.10 - 27.10 pg/mLFTMC RemisolUrea nitrogen [Mass/Vol]12 mg/dLNormal5 - 21 mg/dLFTMC RemisolUrea nitrogen/Creatinine [Mass ratio]15 mg/uhVnnpym07 - 20[facility] Remisol HEMATOLOGYOrdered By: SYSTEM SYSTEM on 10-79-9256Qfyknayrt/100 WBC (Bld)0.9 % Normal0.0 - 2.0 %[facility] HemeAutoSSBasophils/Leukocytes Auto (Bld) [Pure # fraction]0.1 E9/LNormal0.0 - 0.2 E9/LFTMC HemeAutoSSEosinophils/100 WBC (Bld)1.9 %Normal0.0 - 8.0 %[facility] HemeAutoSSEosinophils/Leukocytes Auto (Bld) [Pure # fraction]0.2 E9/LNormal0.0 - 0.5 E9/LFTMC HemeAutoSSLymphocytes/100 WBC (Bld) 25.5 %Lcejen71.0 - 50.0 %[facility] HemeAutoSSLymphocytes/Leukocytes Auto (Bld) [Pure # fraction]2.2 E9/LNormal1.0 - 4.0 E9/L[facility] HemeAutoSSMonocytes/100 WBC (Bld)7.2 %Normal4.0 - 14.0 %[facility] HemeAutoSSMonocytes/Leukocytes Auto (Bld) [Pure # fraction]0.6 E9/LNormal0.2 - 1.0 E9/LFTMC HemeAutoSSNeutrophils/100 WBC (Bld) 64.5 %Dqkcmt75.0 - 75.0 %[facility] HemeAutoSSNeutrophils/Leukocytes Auto (Bld) [Pure # fraction]5.6 E9/LNormal2.0 - 7.5 E9/LFTMC HemeAutoSSHEMATOLOGYOrdered By: Radha Ulloa on 78-09-8715Cfuiidehjeu distribution width (RBC) [Ratio]15.4 %High10.9 - 14.2 %[facility] HemeAutoSSHematocrit (Bld) [Volume fraction]35.5 %Normal 34.0 - 46.0 %[facility] HemeAutoSSHemoglobin (Bld) [Mass/Vol]11.5 g/dLLow12.0 - 16.0 gm/dLFTMC HemeAutoSSMCH (RBC) [Entitic mass]30.9 naOkcqbe10.0 - 34.0 pgFTMC HemeAutoSSMCHC (RBC) [Mass/Vol]32.5 g/jBCzphzw72.4 - 36.0 gm/dLFTMC HemeAutoSS MCV (RBC) [Entitic vol]95.0 dEWlzjqw86.0 - 100.0 fLFTMC HemeAutoSSPlatelet mean volume (Bld) [Entitic vol]9.4 fLNormal6.4 - 10.8 [facility] HemeAutoSSPlatelets (Bld) [#/Vol]325.0 E9/JJglorc130.0 - 500.0 E9/[facility] HemeAutoSSRBC (Bld) [#/Vol] 3.7 E12/LLow4.3 - 5.9 E12/[facility] HemeAutoSSWBC corrected for nucl RBC Auto (Bld) [#/Vol]8.8 E9/LNormal4.0 - 11.0 /[facility] HemeAutoSSSEROLOGYOrdered By: Yoli Robert on 00-46-7652Mfdw hCG QlNegative (01/15/23 11:31 AM)NormalINTE[facility] Man SeroURINALYSISOrdered By: Jacki Knowles on 17-66-6331Kauokhqa LM Ql (Urine sed)1+ /HPFInvalid Interpretation CodeTrace/HPF [facility] UA Auto SSBilirubin Ql (U)Negative (01/15/23 12:51 PM)NormalNegativeINTEGRIS [facility]ALTH [facility] [place] U[facility] Auto SSClarity (U)SL CLOUDYInvalid Interpretation CodeINTEGRIS HEALTH [facility] UA Auto SSColor (U)Yellow (01/15/23 12:51 PM)NormalYellowINTEGRIS HEALTH [facility]MON[facility] [place] UA Auto SSCrystals LM Ql (Urine sed)Present (01/15/23 12:51 PM)NormalINTEGRIS [facility]ALTH [facility] [place] UA Auto SSEpithelial cells.squamous LM.HPF (Urine sed) [#/Area]3-4 /HPFNormal0-2/HPFINTEGRIS HEALTH [facility]MON[facility] [place] UA Auto SSGlucose Test strip (U) [Mass/Vol]Negative (01/15/23 12:51 PM)NormalNegativeINTEGRIS [facility] [place] UA Auto SSHemoglobin Ql (U)Negative (01/15/23 12:51 PM)NormalNegativeINTEGRIS [facility]ALTH [facility] [place] U[facility] Auto SSKetones (U) [Mass/Vol]Negative (01/15/23 12:51 PM)NormalNegativeINTEGRIS [facility] [place] UA Auto SSLithium.plasma/[place].RBC (Bld) [Mass ratio]0-3 /HPFNormal0-3/HPFINTEGRIS HEALTH [facility]MON[facility] [place] UA Auto SSNitrite Ql (U)Negative (01/15/23 12:51 PM)NormalNegativeINTEGRIS [facility] [place] [facility] Auto SSpH (U)7.5 *NA* (01/15/23 12:51 PM)Invalid Interpretation Code5.0 - 9.0[facility] UA Auto SSProtein (U) [Mass/Vol]Negative (01/15/23 12:51 PM)NormalNegativeINTEGRIS [facility]ALTH [facility] [place] UA Auto SSSpecific gravity (U) [Rel density] 1.015 *NA* (01/15/23 12:51 PM)Invalid Interpretation Code1.005 - 1.030[facility] UA Auto SSUA Spec DescClean Catch (01/15/23 12:51 PM)NormalINTEGRIS [facility]ALTH [facility]MON[facility] UA Auto SSUrobilinogen Qn (U)0.9291120 {Lucila'U}/dLNormal0.0 - 1.0 EU/dLINTEGRIS [facility]ALTH [facility]MON[facility] [place] UA Auto SSWBC Auto Ql (U)1+ *ABN* (01/15/23 12:51 PM)Invalid Interpretation CodeNegativeINTEGRIS [facility]ALTH [facility]MON[facility] [place] UA Auto SSWBC LM.HPF (Urine sed) [#/Area]0-5 /HPFNormal0-5/HPFINTEGRIS HEALTH [facility]MON[facility] [place] UA Auto SSBLOOD BANKOrdered By: Myrna Contreras on 09-06-2634GIJ/Rh InterpNegativeInvalid Interpretation CodeINTEGRIS HEALTH [facility]MON[facility] BB SubsectionABSC Gel InterpNegative (12/05/22 7:24 AM)NormalINTEGRIS [facility]ALTH [facility]MON[facility] BB SubsectionURINALYSISOrdered By: Kimberli Martin on 61-32-2574Fggmpdjss Ql (U)Negative (12/05/22 10:05 AM)NormalNegativeINTEGRIS [facility] [place] UA Auto SSClarity (U)Clear (12/05/22 10:05 AM)NormalClearFTM UA Auto SSColor (U)Yellow (12/05/22 10:05 AM)NormalYellowINTEGRIS HEALTH [facility]MON[facility] [place] UA Auto SSEpithelial cells.squamous LM.HPF (Urine sed) [#/Area]0-2 /HPFNormal0-2/HPFINTEGRIS HEALTH [facility] [place] [facility] Auto SSGlucose Test strip (U) [Mass/Vol]Negative (12/05/22 10:05 AM)NormalNegativeIN[facility]GR[facility] [place] [facility] Auto SSHemoglobin Ql (U)Negative (12/05/22 10:05 AM)NormalNegativeIN[facility] [place] [facility] Auto SSKetones (U) [Mass/Vol]Negative (12/05/22 10:05 AM)NormalNegativeIN[facility] [place] Auto SSLithium.plasma/[place].RBC (Bld) [Mass ratio]0-3 /HPFNormal0-3/HPFMC UA Auto SSNitrite Ql (U)Negative (12/05/22 10:05 AM)NormalNegativeIN[facility] [place] Auto SSpH (U)6.5 *NA* (12/05/22 10:05 AM)Invalid Interpretation Code5.0 - 9.0[facility] [place] [facility] Auto SSProtein (U) [Mass/Vol]Negative (12/05/22 10:05 AM)NormalNegativeINTEGRIS [facility] [place] [facility] Auto SSSpecific gravity (U) [Rel density]1.015 *NA* (12/05/22 10:05 AM)Invalid Interpretation Code1.005 - 1.030[facility] [place] [facility] Auto SSUA Spec DescCatheter (12/05/22 10:05 AM)NormalINTEGRIS [facility] [place] [facility] Auto SSUrobilinogen Qn (U)1.9629542 {Lucila'U}/dLNormal0.0 - 1.0 EU/dLINTEGRIS [facility] [place] [facility] Auto SSWBC Auto Ql (U)Negative (12/05/22 10:05 AM)NormalNegativeIN[facility] [place] Auto SSWBC LM.HPF (Urine sed) [#/Area]0- 5 /HPFNormal0-5/HPFFTMC UA Auto SSCHEMISTRYOrdered By: SYSTEM SYSTEM on [id number] gap [Moles/Vol]13 mmol/LNormal6 - 16 mEq/LFTMC RemisolChloride [Moles/Vol]109 mmol/ZVpferi519 - 111 mmol/LFTMC RemisolCO2 [Moles/Vol]17 mmol/L Low21 - 31 mmol/LFTMC RemisolCreatinine [Mass/Vol]0.6 mg/dLNormal0.5 - 1.3 mg/dL FT RemisolGFR/1.73 sq M.predicted among blacks MDRD (S/P/Bld) [Vol rate/Area] mL/min/1.73 q6Grkwwr>=59mL/min/1.73 m2FT[facility] Chem SGFR/1.73 sq M.predicted among non-blacks MDRD (S/P/Bld) [Vol rate/Area]mL/min/1.73 t6Lbdpbn>=59mL/min/1.73 m2 FT Chem SPotassium [Moles/Vol]3.6 mmol/LNormal3.5 - 5.3 mmol/LFTMC Remisol Sodium [Moles/Vol]135 mmol/RZydwns925 - 145 mmol/LFTMC RemisolUrea nitrogen [Mass/Vol]14 mg/dLNormal5 - 21 mg/dLFTMC RemisolCOAGULATIONOrdered By: Yoli Robert on [id number] Coag (PPP) [Time]30.4 cIluhxc16.1 - 36.5 second(s) [facility] Auto CoagINR Coag (PPP) [Relative time]0.9 {INR}Invalid Interpretation Code [facility] Auto CoagPT Coag (PPP) [Time]9.9 sNormal9.4 - 12.5 second(s)[facility] Auto Coag HEMATOLOGYOrdered By: Shasta Eller on 30-29-1505Yprtomvtpxq distribution width (RBC) [Ratio]14.0 %Dsawtp14.9 - 14.2 %[facility] HemeAutoSSHematocrit (Bld) [Volume fraction]38.2 %Gepllz52.0 - 46.0 %[facility] HemeAutoSSHemoglobin (Bld) [Mass/Vol]12.3 g/tHZhegzq29.0 - 16.0 gm/dLFTMC HemeAutoSSMCH (RBC) [Entitic mass]31.1 pgNormal 27.0 - 34.0 pgFTMC HemeAutoSSMCHC (RBC) [Mass/Vol]32.1 g/sVByqhju67.4 - 36.0 gm/dLFTMC HemeAutoSSMCV (RBC) [Entitic vol]96.9 kEArcrfa78.0 - 100.0 fLFTMC HemeAutoSSPlatelet mean volume (Bld) [Entitic vol]9.5 fLNormal6.4 - 10.8 fLFTMC HemeAutoSSPlatelets (Bld) [#/Vol]270.0 E9/QChsokh622.0 - 500.0 E9/LFTMC HemeAutoSSRBC (Bld) [#/Vol]4.0 E12/LLow4.3 - 5.9 E12/LFTMC HemeAutoSSWBC corrected for nucl RBC Auto (Bld) [#/Vol]13.7 E9/LHigh4.0 - 11.0 E9/LFTMC HemeAutDonovanOVon [id number] Visit (NEADFV) SHAZIA CHOU ([id number]) 1990 F Date Time Provider Department 11/20/22 8:00 AM EILEEN ALVAREZ During your visit today, we recorded the following information about you: Pulse Blood pressure Weight Height 67/minute 137/81 85.7 kg 1.702 m Last Period 10/23/22 Eileen Alvarez MD 11/20/2022 10:33 AM Signed [facility] for General Neurology New Patient Evaluation [...] due to congenital deformity, seen in the [facility] for General Neurology for: Idiopathic intracranial [...] her eyes. She has never seen an poultry helper. CSF protein 24, Glu 55, Pro 28, [...] due to congenital deformity, seen in the [facility] for General Neurology for: 1. Idiopathic [...] she agreed. She needs to follow with poultry helper every 6 months. In some patients with intracranial hypertension, there might be a concurrent transverse sinus stenosis and transverse sinus stenting may resolve the symptoms. I will do MRV. --HTN --H depression --Headache: there are a (more content not included)...NormalWestern [facility] AUTO DIFFon [id number] #0.0 103/ulNormal0.0-0.1The [facility] HospitalComment on above:Performed By: #### RACHEL JENNIE, LIPA #### [facility] [address] [address] [address] Manuel SandhuBasophils/100 WBC (Bld)0.5 %Normal0.2-2.0[facility] Comment on above:Performed By: #### RACHEL JENNIE, LIPA #### [facility] [address] [address] [address] Manuel Anthony #0.1 103/ulNormal0.0-0.7The [facility] HospitalComment on above: Performed By: #### RACHEL JENNIE, LIPA #### [facility] [address] [address] [address] Manuel Gonzalesosinophils/100 WBC (Bld)1.6 %Normal0.9-7.0The [facility] Comment on above:Performed By: #### RACHEL JENNIE, LIPA #### [facility] [address] [address] [address] Manuel Gonzalesrythrocyte distribution width (RBC) [Ratio]13.8 %Vlftpn04.0-15.0 The [facility] HospitalComment on above:Performed By: #### CMP, JENNIE, LIPA #### [facility] [address] [place] [address] Dr. Manuel SandhuHematocrit (Bld) [Volume fraction]38.7 %Jaxxbw88.0-48.0The [facility] HospitalComment on above:Performed By: #### CMP, JENNIE, LIPA #### [facility] [address] [place] [address] Dr. Manuel SandhuHemoglobin (Bld) [Mass/Vol]12.9 g/eXEhgqux47.0-16.0The [facility] HospitalComment on above:Performed By: #### CMP, JENNIE, LIPA #### [facility] [address] [place] [address] Dr. Manuel Fletcher #0.03 10e3/ulNormal0.00-0.03The [facility] HospitalComasc[facility] on above:Performed By: #### CMP, JENNIE, LIPA #### [facility] [address] [place] [address] Dr. Manuel Fletcher %0.4 %Normal0.0-0.5The [facility] HospitalComment on above: Performed By: #### CMP, JENNIE, LIPA #### [facility] [address] [place] [address] Dr. Manuel Mac #2.1 103/ulNormal1.2-3.8The [facility] HospitalComment on above:Performed By: #### CMP, JENNIE, LIPA #### [facility] [address] [place] [address] Dr. Manuel Delgadomphocytes/100 WBC (Bld)25.1 %Bkzejm59.5-60.0The [facility] HospitalComment on above:Performed By: #### CMP, JENNIE, LIPA #### [facility] [address] [place] [address] Dr. Manuel WilhelmUAL DIFF REQNONormalThe [facility] HospitalComment on above: Performed By: #### CMP, JENNIE, LIPA #### [facility] [address] [place] [address] Dr. Manuel Hu (RBC) [Entitic mass]32.0 nzJfbpas04.7-34.0The [facility] HospitalComment on above:Performed By: #### CMP, JENNIE, LIPA #### [facility] [address] [place] [address] Dr. Manuel Hu (RBC) [Mass/Vol]33.3 g/nZKaczjl24.9-35.2The [facility] HospitalComment on above:Performed By: #### CMP, JENNIE, LIPA #### [facility] [address] [place] [address] Dr. Manuel Hu (RBC) [Entitic vol]96.0 rBHhzrnd15.0-99.0The [facility] HospitalComment on above:Performed By: #### CMP, JENNIE, LIPA #### [facility] [address] [place] [address] Dr. aMnuel Keith #0.5 103/ulNormal0.3-0.8The [facility] HospitalComment on above:Performed By: #### CMP, JENNIE, LIPA #### [facility] [address] [place] [address] Dr. Manuel Suarezocytes/100 WBC (Bld)5.7 %Normal1.7-12.0The [facility] Comment on above:Performed By: #### CMP, JENNIE, LIPA #### [facility] [address] [place] [address] Dr. Manuel Hurtado #5.6 103/ulNormal1.4-6.5The [facility] HospitalComment on above:Performed By: #### CMP, JENNIE, LIPA #### [facility] [address] [place] [address] Dr. Manuel Kulkarniophils/100 WBC (Bld)66.7 %Ntefoc20.0-75.0The [facility] HospitalComment on above:Performed By: #### CMP, JENNIE, LIPA #### [facility] [address] [place] [address] Dr. Manuel Del Toro mean volume (Bld) [Entitic vol]10.9 fLNormal9.5-13.5The [facility] HospitalComment on above:Performed By: #### RACHEL, JENNIE, LIPA #### [facility] [address] [address] [address] Manuel SandhuPLT310 103/odIkouyu740-323Mfp [facility] HospitalComasc[facility] hospital on above: Performed By: #### CMP, JENNIE, LIPA #### [facility] [address] [place] [address] Dr. Manuel SandhuRBC4.03 106/ulCritically low4.20-5.40The [facility] on above:Performed By: #### CMP, JENNIE, LIPA #### [facility] [address] [place] [address] Dr. Manuel SandhuWBC8.4 103/ulNormal4.0-11.0The [facility] on above: Performed By: #### CMP, JENNIE, LIPA #### [facility] [address] [place] [address] Dr. Manuel Rodriguez URINE PROFILEon 59-63-8529Acjeutgbi Ql (U)NegativeNormal NEGATIVEThe [facility] HospitalComascension prov[facility] hospital on above:Performed By: #### AVNI PERALTA #### [facility] [address] [place] [address] Dr. Manuel Eid (U)CLEARNormalCLEARThe [facility] HospitalComascension prov[facility] hospital on above: Performed By: #### KATHRYN ERUR #### [facility] [address] [place] [address] Dr. Manuel Gautam (U)LT. YELLOWNormalYELLOWSelect [facility] ShawComasc[facility] providence hospital on above:Performed By: #### TAMARA PERALTAR #### [facility] [address] [place] [address] Dr. Manuel BennettDA micrscopic examination will be performed if indicated. NormalThe [facility] Memorial HospitalComment on above:Performed By: #### TAMARA PERALTAR #### [facility] [address] [address] [address] Manuel SandhuGlucose Ql (U)NegativeNormalNEGATIVESelect Medical [facility], [facility] ShawComment on above:Performed By: #### TAMARA PERALTAR #### [facility] [address] [address] [address] Manuel SandhuHemoglobin Ql (U)LARGEAbnormalNEGATIVESelect [facility] Comment on above:Performed By: #### TAMARA PERALTAR #### [facility] [address] [address] [address] Manuel SandhuKetones Ql (U)NegativeNormalNEGATIVESelect [facility] ShawComment on above:Performed By: #### TAMARA PERALTAR #### [facility] [address] [address] [address] Manuel SandhuLEUKOCYTESTRACEAbnormalNEGATIVESelect [facility] ShawComment on above:Performed By: #### TAMARA PERALTAR #### [facility] [address] [place] [address] Dr. Manuel SandhuNitrite Ql (U)NegativeNormalNEGATIVESelect Medical [facility] ShawComment on above:Performed By: #### TAMARA PERALTAR #### [facility] [address] [place] [address] Dr. Manuel SandhupH (U)6.5 [pH]Normal5-9[facility] ShawComment on above: Performed By: #### TAMARA PERALTAR #### [facility] [address] [address] [address] Manuel SandhuSPEC GRAVITY<=1.540Qpzhxnft9.005-<=1.025[facility] Comment on above:Performed By: #### TAMARA PERALTAR #### [facility] [address] [place] [address] Dr. Manuel SandhuUA PROTEINNegativeNormalNEGATIVE/ TRACESelect Medical [facility] Comment on above:Performed By: #### TAMARA PERALTAR #### [facility] [address] [address] [address] Manuel W[place] INDINDICATEDNormalThe [facility] Memorial HospitalComment on above: Performed By: #### TAMARA PERALTAR #### [facility] [address] [place] [address] Dr. Manuel Vyas Qn (U)0.2 {Lucila'U}/dLNormal0.2 - 1.0The [facility] HospitalComment on above:Performed By: #### AVNI PERALTA #### [facility] [address] [place] [address] Dr. Manuel SandhuPROF CHEM 8 (BAS METB)on 17-51-5956Rtdxt gap [Moles/Vol]11.7 mmol/LNormalThe [facility] HospitalComment on above:Performed By: #### CMP, JENNIE, LIPA #### [facility] [address] [place] [address] Dr. Manuel SandhuCalcium [Mass/Vol]9.1 mg/dLNormal8.5-10.1[facility] Comment on above:Performed By: #### CMP, JENNIE, LIPA #### [facility] [address] [place] [address] Dr. Manuel SandhuChloride [Moles/Vol]105 mmol/ESxrhyx59-176Ret [facility] Comment on above:Performed By: #### CMP, JENNIE, LIPA #### [facility] [address] [place] [address] Dr. Manuel SandhuCO2 [Moles/Vol]26.8 mmol/THdkrnd30.0-32.0The [facility] Comment on above:Performed By: #### CMP, JENNIE, LIPA #### [facility] [address] [place] [address] Dr. Manuel SandhuCreatinine [Mass/Vol]0.62 mg/dLNormal0.55-1.02The [facility] HospitalComment on above:Performed By: #### CMP, JENNIE, LIPA #### [facility] [address] [place] [address] Dr. Yilan ChangEGFR-AF SAMOAN>60Normal>=60The [facility] HospitalComment on above:Performed By: #### CMP, JENNIE, LIPA #### [facility] [address] [address] [address] Manuel GonzalesGFR-NON AF SAMOAN>60Normal>=60The [facility] HospitalComment on above:Performed By: #### CMP, JENNIE, LIPA #### [facility] [address] [address] [address] Manuel SandhuGlucose [Mass/Vol]92 mg/oFMofbor57-733Lvi [facility] Comment on above:Performed By: #### CMP, JENNIE, LIPA #### [facility] [address] [address] [address] Manuel SandhuPotassium [Moles/Vol]3.5 mmol/LNormal3.5-5.1[facility] Comment on above:Performed By: #### CMP, JENNIE, LIPA #### [facility] [address] [address] [address] Manuel Josephdium [Moles/Vol]140 mmol/FNzmidm653-091WbgSelect Medical [facility] Comment on above:Performed By: #### CMP, JENNIE, LIPA #### [facility] [address] [address] [address] Manuel SandhuUrea nitrogen [Mass/Vol]8.0 mg/dLNormal7.0-18.0The [facility] HospitalComment on above:Performed By: #### CMP, JENNIE, LIPA #### [facility] [address] [place] [address] Dr. Manuel Ramirez nitrogen/Creatinine [Mass ratio]12.9 mg/mgNormalThe [facility] HospitalComment on above:Performed By: #### CMP, JENNIE, LIPA #### [facility] [address] [place] [address] Dr. Manuel SandhuURINE MICROSCOPIC ONLYon 30-63-3308DYEZLDKOTYLS SEENNormalNONE SEENSelect Medical [facility] Hospital, [facility] ShawComment on above:Performed By: #### AVNI PERALTA #### [facility] [address] [address] [address] Manuel Hunter identified Cx Nom (U)NOT INDICATEDNormalThCleveland Clinic Lutheran HospitalComascension providence hospital on above:Performed By: #### KATHRYN ERUR #### [facility] [address] [address] [address] Manuel Yee SEENNormalNONE SEENUniversity Hospitals Par[facility] on above:Performed By: #### KATHRYN ERUR #### [facility] [address] [address] [address] Manuel Mejiaystals LM Nom (Urine sed)NONE SEENNormalNONE SEENUniversity Hospitals Parma Medical Center on above:Performed By: #### KATHRYN ERUR #### [facility] [address] [address] [address] Jackson ChangEyenythelial cells LM Ql (Urine sed)FEWAbnormalNONE SEEN /RAREThe [facility] HospitalComascension providence hospital on above:Performed By: #### KATHRYN ERUR #### [facility] [address] [address] [address] Manuel BrothersACEAbnormalNONE SEENUniversity Hospitals Parma [facility] Center on above:Performed By: #### KATHRYN ERUR #### [facility] [address] [address] [address] Manuel SandhuCtwmmWYT2-29Iqevsxkh6-6Rhl [facility] on above:Performed By: #### KATHRYN ERUR #### [facility] [address] [address] [address] Manuel SandhuWBC2-5AbnormalNONE SEENUniversity Hospitals Par[facility] Center on above: Performed By: #### KATHRYN ERUR #### [facility] [address] [address] [address] Manuel Carcamo Panel InformationOrdered By: Dorita Niño on 08-19-2022 CSF Xpyaukf14 mg/iJ19-45OowwmqcjwMercy Memorial HospitalCSF Total Ppasqdu03 mg/fW33-69JugnrbmkdMercy Memorial HospitalCBC AUTO DIFFon [id number] #0.1 103/ulNormal0.0-0.1The [facility] HospitalComment on above:Performed By: #### KATHRYN ERUR #### [facility] [address] [place] [address] Dr. Manuel SandhuBasophils/100 WBC (Bld)0.4 %Normal0.2-2.0[facility] Comment on above:Performed By: #### KATHRYN, ERUR #### [facility] [address] [place] [address] Dr. Manuel Anthony #0.2 103/ulNormal0.0-0.7The [facility] HospitalComment on above: Performed By: #### KATHRYN ERUR #### [facility] [address] [place] [address] Dr. Manuel Gonzalesosinophils/100 WBC (Bld)1.8 %Normal0.9-7.0The [facility] Comment on above:Performed By: #### KATHRYN ERUR #### [facility] [address] [place] [address] Dr. Manuel Gonzalesrythrocyte distribution width (RBC) [Ratio]13.6 %Kattun49.0-15.0 [facility], [facility] ShawComment on above:Performed By: #### KATHRYN ERUR #### [facility] [address] [place] [address] Dr. Manuel SandhuHematocrit (Bld) [Volume fraction]35.8 %Critically low36.0-48.0 [facility] ShawComment on above:Performed By: #### KATHRYN ERUR #### [facility] [address] [place] [address] Dr. Manuel SandhuHemoglobin (Bld) [Mass/Vol]12.2 g/rDQntfbu50.0-16.0[facility] ShawComment on above:Performed By: #### KATHRYN ERUR #### [facility] [address] [place] [address] Dr. Manuel Fletcher #0.05 10e3/ulCritically high0.00-0.03The [facility] Comment on above:Performed By: #### TAMARA PERALTAR #### [facility] [address] [place] [address] Dr. Manuel Fletcher %0.4 %Normal0.0-0.5The [facility] HospitalComment on above: Performed By: #### KATHRYN ERUR #### [facility] [address] [place] [address] Dr. Manuel Mac #2.0 103/ulNormal1.2-3.8The [facility] HospitalComment on above:Performed By: #### KATHRYN ERUR #### [facility] [address] [place] [address] Dr. Manuel Poolehocytes/100 WBC (Bld)18.1 %Critically low20.5-60.0The [facility] HospitalComment on above:Performed By: #### KATHRYN ERUR #### [facility] [address] [place] [address] Dr. Manuel WilhelmUAL DIFF REQNONormalThe [facility] HospitalComment on above: Performed By: #### KATHRYN ERUR #### [facility] [address] [place] [address] Dr. Manuel Hu (RBC) [Entitic mass]32.0 leQnoilr61.7-34.0The [facility] HospitalComment on above:Performed By: #### KATHRYN ERUR #### [facility] [address] [place] [address] Dr. Manuel Hu (RBC) [Mass/Vol]34.1 g/aHZotwuw04.9-35.2The [facility] HospitalComment on above:Performed By: #### KATHRYN, ERUR #### [facility] [address] [place] [address] Dr. Manuel Hu (RBC) [Entitic vol]94.0 fIWovkql84.0-99.0The [facility] HospitalComment on above:Performed By: #### TAMARA PERALTAR #### [facility] [address] [place] [address] Dr. Manuel Keith #0.7 103/ulNormal0.3-0.8The [facility] HospitalComment on above:Performed By: #### TAMARA PERALTAR #### [facility] [address] [place] [address] Dr. Manuel Suarezocytes/100 WBC (Bld)5.8 %Normal1.7-12.0The [facility] Comment on above:Performed By: #### TAMARA PERALTAR #### [facility] [address] [place] [address] Dr. Manuel Hurtado #8.2 103/ulCritically high1.4-6.5The [facility] Comment on above:Performed By: #### TAMARA PERALTAR #### [facility] [address] [place] [address] Dr. Manuel Kulkarniophils/100 WBC (Bld)73.5 %Dsoocr37.0-75.0The [facility] HospitalComment on above:Performed By: #### TAMARA PERALTAR #### [facility] [address] [place] [address] Dr. Manuel Del Toro mean volume (Bld) [Entitic vol]11.3 fLNormal9.5-13.5The [facility] HospitalComment on above:Performed By: #### TAMARA PERALTAR #### [facility] [address] [place] [address] Dr. Manuel SandhuPLT284 103/mmCbelfr128-120Mrv [facility] HospitalComment on above: Performed By: #### TAMARA PERALTAR #### [facility] [address] [place] [address] Dr. Manuel SandhuRBC3.81 106/ulCritically low4.20-5.40The [facility] HospitalComment on above:Performed By: #### TAMARA PERALTAR #### [facility] [address] [place] [address] Dr. Manuel SandhuWBC11.2 103/ulCritically high4.0-11.0[facility] ShawComment on above:Performed By: #### AVNI PERALTA #### [facility] [address] [place] [address] Dr. Manuel Hanson-DIMERon 33-67-8432P-DIMER0.34 mg/L FEUNormal<=0.59The [facility] HospitalComment on above:Performed By: #### TAMARA PERALTAR #### [facility] [address] [place] [address] Dr. Manuel NunezDIMER COMMENTSSEE BELOWGreene Memorial HospitalComment on above:Result Comment: Increases in D-Dimer concentration observed with thromboembolic events [...] stress, and generalized hospitalization. Performed By: #### AVNI PERALTA #### [facility] [address] [place] [address] Dr. Manuel SandhuPROF CHEM 8 (BAS METB)on 69-18-9639Mudua gap [Moles/Vol]10.6 mmol/LNormalSelect Medical [facility], [facility] ShawComment on above:Performed By: #### INFLUAB #### [facility] [address] [place] [address] Dr. Manuel SandhuCalcium [Mass/Vol]9.2 mg/dLNormal8.5-10.1[facility] Comment on above:Performed By: #### INFLUAB #### [facility] [address] [place] [address] Dr. Manuel SandhuChloride [Moles/Vol]103 mmol/RYxqxeu23-951NgfSelect Medical [facility] Comment on above:Performed By: #### INFLUAB #### [facility] [address] [address] [address] Manuel SandhuCO2 [Moles/Vol]28.4 mmol/IYthhyf42.0-32.0The [facility] Comment on above:Performed By: #### INFLUAB #### [facility] [address] [place] [address] Dr. Manuel SandhuCreatinine [Mass/Vol]0.61 mg/dLNormal0.55-1.02The [facility] HospitalComment on above:Performed By: #### INFLUAB #### [facility] [address] [place] [address] Dr. Manuel GonzalesGFR-AF SAMOAN>60Normal>=60The [facility] HospitalComment on above:Performed By: #### INFLUAB #### [facility] [address] [place] [address] Dr. Manuel GonzalesGFR-NON AF SAMOAN>60Normal>=60The [facility] HospitalComment on above:Performed By: #### INFLUAB #### [facility] [address] [place] [address] Dr. Manuel SadnhuGlucose [Mass/Vol]90 mg/kEYbxkdd27-360Ytz [facility] Comment on above:Performed By: #### INFLUAB #### [facility] [address] [place] [address] Dr. Manuel SandhuPotassium [Moles/Vol]4.0 mmol/LNormal3.5-5.1The [facility] Comment on above:Performed By: #### INFLUAB #### [facility] [address] [place] [address] Dr. Manuel SandhuSodium [Moles/Vol]138 mmol/WGcmfjp046-055Szx [facility] Comment on above:Performed By: #### INFLUAB #### [facility] [address] [place] [address] Dr. Manuel SandhuUrea nitrogen [Mass/Vol]16.0 mg/dLNormal7.0-18.0The [facility] HospitalComment on above:Performed By: #### INFLUAB #### [facility] [address] [place] [address] Dr. Manuel SandhuUrea nitrogen/Creatinine [Mass ratio]26.2 mg/mgGreene Memorial HospitalComment on above:Performed By: #### INFLUAB #### [facility] [address] [place], [place] [address] Dr. Manuel SandhuXR CHEST 1 Von [id number] CHEST 1 VEXAM: XR CHEST 1 V HISTORY: CHEST PAIN, UNSPECIFIED. Shortness of breath. COMPARISON: Comparison made to chest x-ray dated 07/19/2022. TECHNIQUE: Single AP portable chest x-ray. FINDINGS: The lungs are clear bilaterally and the cardiomediastinal silhouette is within normal limits. IMPRESSION: 1. No acute cardiopulmonary disease. Electronically authenticated by: YOLI FRANKS Date: 2022-08-16 14:16Greene Memorial HospitalAlbumin [Mass/volume] in Serum or PlasmaOrdered By: Sangeetha Peña on 98-44-4784Anhglwr [Mass/Vol]3.2 g/dL3.2-5.5FCleveland ClinicBasophils Auto (Bld) [#/Vol]Ordered By: Sangeetha Peña on 08-12-2022 Basophils (Bld) [#/Vol]0.1 10*3/uL0.0-0.2FCleveland Clinic Basophils/100 WBC Auto (Bld)Ordered By: Sanegetha Peña on 81-21-4442Wrzdcitsc/100 WBC (Bld)0.7 %.Mercy Memorial HospitalC reactive protein [Mass/volume] in Serum or PlasmaOrdered By: Sangeetha Peña on 88-37-8642TML [Mass/Vol]0.5 mg/dL0.0-1.0Mer[facility] Memorial HospitalCreatinine and Glomerular filtration rate.predicted panel (S/P/Bld)Ordered By: Sangeetha Peña on 51-62-3044Jsmtxydngj [Mass/Vol]0.65 mg/dL0.44-1.03Mer[facility] Memorial HospitalEosinophils Auto (Bld) [#/Vol]Ordered By: Sangeetha Peña on 08-12-2022 Eosinophils (Bld) [#/Vol]0.4 10*3/uL0.0-0.45[facility] Eosinophils/100 WBC Auto (Bld)Ordered By: Sangeetha Peña on 08-12-2022 Eosinophils/100 WBC (Bld)5.2 %.[facility] Memorial HospitalErythrocyte distribution width Auto (RBC) [Ratio]Ordered By: Sangeetha Peña on 08-12-2022 Erythrocyte distribution width (RBC) [Ratio]14.4 %11.9-15.3FCleveland ClinicErythrocyte sedimentation rate by Photometric methodOrdered By: Dorita Niño on [id number] Photometric method (Bld) [Velocity]3 mm/hr 0-19Mercy Memorial HospitalEstimated glomerular filtration rate (GFR) non- AmericanOrdered By: Sangeetha Peña on 40-93-0035PCO/1.73 sq M.predicted among non-blacks MDRD (S/P/Bld) [Vol rate/Area]> 60 mL/MinMercy Memorial HospitalFolate [Mass/volume] in Serum or PlasmaOrdered By: Lizzeth Malave on 03-48-3215Goczhm [Mass/Vol]15.3 ng/mL>5.9[facility] HospitalComment on above:Folate reference range: >5.9 ng/mlThe WHO technical consultation on folate and vitamin c45klbmkgbgwucq has determined that folate concentrations lessthan 4 ng/ml are considered deficient.Globulin Calc (S) [Mass/Vol]Ordered By: Sangeetha Peña on 07-62-3906Qjuikbgg (S) [Mass/Vol]2.4 g/dLMercy Memorial HospitalHCG ( test) IA.rapid Ql (U)Ordered By: Lizzeth Malave on 42-53-5148STV ( test) Ql (U)NegativeMercy Memorial HospitalHematocrit Auto (Bld) [Volume fraction]Ordered By: Sangeetha Peña on 62-82-0841Pnwjbcwbcz (Bld) [Volume fraction]34.6 %34.0-46.4FCleveland ClinicHemoglobin [Mass/volume] in BloodOrdered By: Sangeetha Peña on 04-58-0883Onpziufjup (Bld) [Mass/Vol]11.3 g/dL11.8-15.4FCleveland ClinicLaboratory - Chemistry and Chemistry - challengeOrdered By: Lizzeth Malave on 54-23-5955Czuffwhmo (Vitamin B12) [Mass/Vol]610 pg/mL 180-914Mer[facility] Memorial HospitalMagnesium [Mass/Vol]1.9 mg/dL1.6-2.6 [facility] HospitalLaboratory - Hematology and Cell countsOrdered By: Sangeetha Peña on 60-61-3766Xuxwyofcq RBC/100 WBC (Bld) [Ratio]0.1 %0-0.5 [facility] HospitalLeukocytes [#/volume] in Blood by Automated countOrdered By: Sangeetha Peña on 68-55-7607MZM (Bld) [#/Vol]8.3 10*3/uL4.5-11.0 [facility] HospitalLymphocytes Auto (Bld) [#/Vol]Ordered By: Sangeetha Peña on 75-64-4516Grnoagimrxt (Bld) [#/Vol]2.3 10*3/uL1.00-4.8[facility] HospitalLymphocytes/100 WBC Auto (Bld)Ordered By: Sangeetha Peña on 60-94-8846Wtppyavdrhm/100 WBC (Bld)27.4 %.[facility] MCH Auto (RBC) [Entitic mass]Ordered By: Sangeetha Peña on 18-62-5619CTS (RBC) [Entitic mass]32.0 pg24.7-34.3FCleveland ClinicMCHC Auto (RBC) [Mass/Vol]Ordered By: Sangeetha Peña on 34-85-6419PRQX (RBC) [Mass/Vol]32.8 g/dL 32.0-35.0[facility] HospitalMCV Auto (RBC) [Entitic vol]Ordered By: Sangeetha Peña on 76-76-6318VSW (RBC) [Entitic vol]97.7 kH73-359OxfcytgchMercy Memorial HospitalMonocytes Auto (Bld) [#/Vol]Ordered By: Sangeetha Peña on 74-49-3176Ulvsatqnk (Bld) [#/Vol]0.7 10*3/uL0.0-0.8[facility] HospitalMonocytes/100 WBC Auto (Bld)Ordered By: Sangeetha Peña on 08-12-2022 Monocytes/100 WBC (Bld)8.7 %.[facility] Memorial HospitalNeutrophils Auto (Bld) [#/Vol]Ordered By: Sangeetha Peña on 78-84-0763Mfsdfozciix (Bld) [#/Vol]4.8 10*3/uL1.8-7.7FCleveland ClinicNeutrophils/100 WBC Auto (Bld) Ordered By: Sangeetha Peña on 87-62-8606Nevwoxwleep/100 WBC (Bld)58.0 %.[facility] HospitalNo Panel InformationOrdered By: Sangeetha Peña on 52-64-9031Vxnqufzui GFR ()> 60 mL/MinMercy Memorial HospitalComment on above:GFR estimated reference range: According to KDOQI guidelines, <60 ml/min/1.73m2 is sufficient todiagnose a patient with chronic kidney disease.Pharmacy Creatinine Clearance (Kcma940.31[facility] HospitalPlatelet mean volume Auto (Bld) [Entitic vol]Ordered By: Sangeetha Peña on 16-06-1979Rutdtigp mean volume (Bld) [Entitic vol]10.2 fL6.3-10.7 [facility] HospitalPlatelets Auto (Bld) [#/Vol]Ordered By: Sangeetha Peña on 50-78-2340Ywjlckxhr (Bld) [#/Vol]263 10*3/tA452-543PstfbvzcoMercy Memorial HospitalProtein [Mass/volume] in Serum or PlasmaOrdered By: Sangeetha Peña on 68-19-6398Puxvvgv [Mass/Vol]5.6 g/dL6.1-7.9[facility] RBC Auto (Bld) [#/Vol]Ordered By: Sangeetha Peña on 25-00-3301WPY (Bld) [#/Vol] 3.54 10*6/uL3.60-5.00Mary Rutan Hospitalerum or plasma alanine aminotransferase measurement without P-5'-P (enzymatic activiOrdered By: Sangeetha Peña on 00-68-2046IDW No additional P-5'-P [Catalytic activity/Vol]22 U/L10-60 [facility] Hospitalerum or plasma albumin/globulin mass ratio Ordered By: Sangeetha Peña on 57-96-1766Bgybdyr/Globulin [Mass ratio]1.3 {ratio} [facility] Hospitalerum or plasma alkaline phosphatase measurement (enzymatic activity/volume)Ordered By: Sangeetha Peña on 08-12-2022 ALP [Catalytic activity/Vol]54 U/I17-95CzelswcplMary Rutan Hospitalerum or plasma anion gap determinationOrdered By: Sangeetha Peña on 88-65-1946Afffc gap [Moles/Vol]10.6 mmol/L6.0-15.0[facility] Hospitalerum or plasma aspartate aminotransferase measurement (enzymatic activity/volume)Ordered By: Sangeetha Peña on 08-64-5868JWO [Catalytic activity/Vol]20 U/G51-46QuufghwgwMary Rutan Hospitalerum or plasma calcium measurement (mass/volume)Ordered By: Sangeetha Peña on 90-75-6739Gibjfzw [Mass/Vol]8.8 mg/dL8.2-10.2FAshtabula General Hospitalerum or plasma chloride measurement (moles/volume) Ordered By: Sangeetha Peña on 43-59-8966Afmpqfij [Moles/Vol]105 mmol/L95-114 [facility] Hospitalerum or plasma glucose measurement (mass/volume)Ordered By: Sangeetha Peña on 92-19-1464Pzvpdey [Mass/Vol]85 mg/dL 70-100Mer[facility] Memorial HospitalComment on above:ADA recommended reference rangeRandom Glucose Reference Range is dependent on time and content of last meal. Glucose of more than 200 mg/dL in a nonstressed, ambulatory subject supports the diagnosisof Diabetes Mellitus.Serum or plasma potassium measurement (moles/volume)Ordered By: Sangeetha Peña on 56-98-4457Ipnfsizak [Moles/Vol]4.2 mmol/L3.5-5.1FAshtabula General Hospitalerum or plasma sodium measurement (moles/volume)Ordered By: Sangeetha Peña on 38-67-8530Iambon [Moles/Vol]140 mmol/N206-952RrstpyrnxMary Rutan Hospitalerum or plasma total bilirubin measurement (mass/volume)Ordered By: Sangeetha Peña on 08-12-2022 Bilirubin [Mass/Vol]0.5 mg/dL0.3-1.2FAshtabula General Hospitalerum or plasma total carbon dioxide measurement (moles/volume)Ordered By: Sangeetha Peña on 17-67-5454DA2 [Moles/Vol]28.6 mmol/L22.0-30.0[facility] Hospitalerum or plasma urea nitrogen measurement (mass/volume)Ordered By: Sangeetha Peña on 14-42-1234Cozv nitrogen [Mass/Vol]7 mg/dL9-23[facility] HospitalTSH DL <= 0.005 mIU/L QnOrdered By: Lizzeth Malave on 08-12-2022 TSH Qn1.79 m[IU]/L0.45-5.33[facility] HospitalTroponin I.cardiac [Mass/volume] in Serum or Plasma by High sensitivity methodOrdered By: Lizzeth Malave on 92-62-1243Ifganigz I.cardiac High sensitivity method [Mass/Vol]< 3 pg/mL0-15[facility] HospitalCBC AUTO DIFFon 04-78-1936RFLE #0.1 103/ulNormal0.0-0.1The [facility] HospitalComment on above:Performed By: #### CMP, JENNIE, LIPA #### [facility] [address] [address] [address] Manuel Dysonphils/100 WBC (Bld)0.5 %Normal0.2-2.0The [facility] Comment on above:Performed By: #### CMP, JENNIE, LIPA #### [facility] [address] [address] [address] Manuel Anthony #0.4 103/ulNormal0.0-0.7The [facility] HospitalComment on above: Performed By: #### CMP, JENNIE, LIPA #### [facility] [address] [place] [address] Dr. Manuel Gonzalesosinophils/100 WBC (Bld)2.4 %Normal0.9-7.0The [facility] Comment on above:Performed By: #### CMP, JENNIE, LIPA #### [facility] [address] [place] [address] Dr. Manuel Gonzalesrythrocyte distribution width (RBC) [Ratio]14.1 %Uaaqcw74.0-15.0 The [facility] HospitalComment on above:Performed By: #### CMP, JENNIE, LIPA #### [facility] [address] [place] [address] Dr. Manuel SandhuHematocrit (Bld) [Volume fraction]39.4 %Hnbndf82.0-48.0The [facility] HospitalComment on above:Performed By: #### CMP, JENNIE, LIPA #### [facility] [address] [place] [address] Dr. Manuel SandhuHemoglobin (Bld) [Mass/Vol]13.3 g/kYNnabzc53.0-16.0The [facility] HospitalComment on above:Performed By: #### CMP, JENNIE, LIPA #### [facility] [address] [place] [address] Dr. Manuel Fletcher #0.07 10e3/ulCritically high0.00-0.03The [facility] Comment on above:Performed By: #### CMP, JENNIE, LIPA #### [facility] [address] [place] [address] Dr. Manuel Fletcher %0.5 %Normal0.0-0.5The [facility] HospitalComment on above: Performed By: #### CMP, JENNIE, LIPA #### [facility] [address] [place] [address] Dr. Manuel Mac #3.6 103/ulNormal1.2-3.8The [facility] HospitalComment on above:Performed By: #### CMP, JENNIE, LIPA #### [facility] [address] [place] [address] Dr. Manuel Delgadomphocytes/100 WBC (Bld)23.5 %Dcrsoe07.5-60.0The [facility] HospitalComment on above:Performed By: #### CMP, JENNIE, LIPA #### [facility] [address] [address] [address] Manuel Moralez DIFF REQNONormalThe [facility] HospitalComment on above: Performed By: #### CMP, JENNIE, LIPA #### [facility] [address] [place] [address] Dr. Manuel Hu (RBC) [Entitic mass]32.1 bnOevawi54.7-34.0The [facility] HospitalComment on above:Performed By: #### CMP, JENNIE, LIPA #### [facility] [address] [place] [address] Dr. Manuel Hu (RBC) [Mass/Vol]33.8 g/vVMyvpdh13.9-35.2The [facility] HospitalComment on above:Performed By: #### CMP, JENNIE, LIPA #### [facility] [address] [place] [address] Dr. Manuel Hu (RBC) [Entitic vol]95.2 hROicxxh89.0-99.0The [facility] HospitalComment on above:Performed By: #### CMP, JENNIE, LIPA #### [facility] [address] [place] [address] Dr. Manuel Keith #0.9 103/ulCritically high0.3-0.8The [facility] Comment on above:Performed By: #### CMP, JENNIE, LIPA #### [facility] [address] [place] [address] Dr. Manuel Suarezocytes/100 WBC (Bld)5.8 %Normal1.7-12.0[facility] Comment on above:Performed By: #### CMP, JENNIE, LIPA #### [facility] [address] [place] [address] Dr. Manuel Hurtado #10.3 103/ulCritically high1.4-6.5The [facility] Comment on above:Performed By: #### CMP, JENNIE, LIPA #### [facility] [address] [place] [address] Dr. Manuel Rebollarutrophils/100 WBC (Bld)67.3 %Mfuegq93.0-75.0The [facility] HospitalComment on above:Performed By: #### CMP, JENNIE, LIPA #### [facility] [address] [place] [address] Dr. Manuel SandhuPlatelet mean volume (Bld) [Entitic vol]11.4 fLNormal9.5-13.5The [facility] HospitalComment on above:Performed By: #### CMP, JENNIE, LIPA #### [facility] [address] [place] [address] Dr. Manuel SandhuPLT364 103/cqWlbmar144-678Uea [facility] HospitalComment on above: Performed By: #### CMP, JENNIE, LIPA #### [facility] [address] [place] [address] Dr. Manuel SandhuRBC4.14 106/ulCritically low4.20-5.40The [facility] HospitalComment on above:Performed By: #### CMP, JENNIE, LIPA #### [facility] [address] [place] [address] Dr. Manuel SandhuWBC15.3 103/ulCritically high4.0-11.0The [facility] HospitalComment on above:Performed By: #### CMP, JENNIE, LIPA #### [facility] [address] [place] [address] Dr. Manuel SandhuCT STROKE HEAD WOon 63-18-5693BW STROKE HEAD WOINDICATION: 31 years old; Female. Visual disturbance. TECHNIQUE: [...] Electronically authenticated by: YOLI MCKEON Date: 2022-08-11 15:21[facility] URINE PROFILEon 11-88-9321Ulokltaeq Ql (U)NegativeNormal NEGATIVESelect Medical [facility], [facility] ShawComment on above:Performed By: #### UMICRO, ERUR #### [facility] [address] [place] [address] Dr. Manuel SandhuClarity (U)CLEARNormalCLEARSelect Medical [facility], [facility] ShawComment on above: Performed By: #### UMICRO, ERUR #### [facility] [address] [address] [address] Manuel Gautam (U)LT. YELLOWNormalYELLOWSelect Medical [facility] Hospital, Edwin ShawComment on above:Performed By: #### UMICRO, ERUR #### [facility] [address] [address] [address] Manuel Hernandez micrscopic examination will be performed if indicated. NormalThe [facility]kton HospitalComment on above:Performed By: #### UMICRO, ERUR #### [facility] [address] [address] [address] Manuel SandhuGlucose Ql (U)NegativeNormalNEGATIVESelect Medical [facility], [facility] ShawComment on above:Performed By: #### UMICRO, ERUR #### [facility] [address] [place] [address] Dr. Manuel SandhuHemoglobin Ql (U)NegativeNormalNEGATIVESelect Medical [facility] Comment on above:Performed By: #### UMICRO, ERUR #### [facility] [address] [place] [address] Dr. Manuel Olivares Ql (U)NegativeNormalNEGATIVEThe [facility] HospitalComment on above:Performed By: #### KATHRYN, ERUR #### [facility] [address] [place] [address] Dr. Manuel SandhuLEUKOCYTESNegativeNormalNEGATIVESelect Medical [facility] ShawComment on above:Performed By: #### KATHRYN, ERUR #### [facility] [address] [place] [address] Dr. Manuel Nietotrfe Ql (U)NegativeNormalNEGATIVEThe [facility] HospitalComment on above:Performed By: #### KATHRYN, ERUR #### [facility] [address] [place] [address] Dr. Manuel SandhupH (U)7.0 [pH]Normal5-9The [facility] HospitalComment on above: Performed By: #### KATHRYN ERUR #### [facility] [address] [place] [address] Dr. Manuel SandhuSPEC GRAVITY<=1.056Pzajhkaw2.005-<=1.025The [facility] Comment on above:Performed By: #### KATHRYN ERUR #### [facility] [address] [place] [address] Dr. Manuel Tinsley PROTEINNegativeNormalNEGATIVE/ TRACEThe [facility] Comment on above:Performed By: #### KATHRYN ERUR #### [facility] [address] [place] [address] Dr. Manuel SandhuUR MICRO INDNOT INDICATEDNormalThe [facility] HospitalComment on above:Performed By: #### KATHRYN ERUR #### [facility] [address] [place] [address] Dr. Manuel Rickbilinogen Qn (U)0.2 {Lucila'U}/dLNormal0.2 - 1.0The [facility] HospitalComment on above:Performed By: #### KATHRYN ERUR #### [facility] [address] [place] [address] Dr. Manuel SandhuLACTATE/LACTIC ACIDon 41-46-4499Phltpem [Moles/Vol]1.5 mmol/L Normal0.4-1.9The [facility] Galion Hospitalment on above:Performed By: #### INFLUAB #### [facility] [address] [place] [address] Dr. Manuel SandhuLIPASEon 53-56-8422Zvnmvj [Catalytic activity/Vol]84.0 U/LNormal 73.0-393.0The [facility] HospitalComment on above:Performed By: #### CMP, JENNIE, LIPA #### [facility] [address] [place] [address] Dr. Manuel SandhuPREGNANCY URon 62-50-0925NLRUOQHHN, QUALNegativeNormalNEGATIVEThe [facility] HospitalComment on above:Performed By: #### KATHRYN ERUR #### [facility] [address] [place] [address] Dr. Manuel SandhuPROF 14(COMP METB)on 31-42-3057Tmuyemx [Mass/Vol]4.3 g/dLNormal 3.4-5.0The [facility] HospitalComment on above:Performed By: #### CMP, JENNIE, LIPA #### [facility] [address] [place] [address] Dr. Manuel SandhuAlbumin/Globulin [Mass ratio]1.1 {ratio}NormalThe [facility] HospitalComment on above:Performed By: #### CMP, JENNIE, LIPA #### [facility] [address] [place] [address] Dr. Manuel SaavedraP [Catalytic activity/Vol]87 U/OYvtsrr60-434Vzf [facility] Hospitalment on above:Performed By: #### CMP, JENNIE, LIPA #### [facility] [address] [place] [address] Dr. Manuel SaavedraT [Catalytic activity/Vol]32 U/WHqhwps08-47Gmp [facility] HospitalComment on above:Performed By: #### CMP, JENNIE, LIPA #### [facility] [address] [place] [address] Dr. Manuel Torreson gap [Moles/Vol]12.7 mmol/LNormalThe [facility] Comment on above:Performed By: #### CMP, JENNIE, LIPA #### [facility] [address] [place] [address] Dr. Manuel SandhuAST [Catalytic activity/Vol]24 U/UVolvbq27-97Wiy [facility] HospitalComment on above:Performed By: #### CMP, JENNIE, LIPA #### [facility] [address] [place] [address] Dr. Manuel SandhuBilirubin [Mass/Vol]0.3 mg/dLNormal0.2-1.0[facility] Comment on above:Performed By: #### CMP, JENNIE, LIPA #### [facility] [address] [place] [address] Dr. Manuel SandhuCalcium [Mass/Vol]9.4 mg/dLNormal8.5-10.1[facility] Comment on above:Performed By: #### CMP, JENNIE, LIPA #### [facility] [address] [place] [address] Dr. Manuel SandhuChloride [Moles/Vol]100 mmol/RRfaktj38-860Uir [facility] Comment on above:Performed By: #### CMP, JENNIE, LIPA #### [facility] [address] [place] [address] Dr. Manuel SandhuCO2 [Moles/Vol]27.7 mmol/LGmextm99.0-32.0The [facility] Comment on above:Performed By: #### CMP, JENNIE, LIPA #### [facility] [address] [place] [address] Dr. Manuel SandhuCreatinine [Mass/Vol]0.71 mg/dLNormal0.55-1.02The [facility] HospitalComment on above:Performed By: #### CMP, JENNIE, LIPA #### [facility] [address] [place] [address] Dr. Manuel GonzalesGFR-AF SAMOAN>60Normal>=60The [facility] HospitalComment on above:Performed By: #### CMP, JENNIE, LIPA #### [facility] [address] [address] [address] Manuel GonzalesGFR-NON AF SAMOAN>60Normal>=60The [facility] HospitalComment on above:Performed By: #### CMP JENNIE, LIPA #### [facility] [address] [address] [address] Manuel SandhuGlobulin (S) [Mass/Vol]3.9 g/dLNormalThe [facility] HospitalComment on above:Performed By: #### JENNIE RAMOS, LIPA #### [facility] [address] [place] [address] Dr. Manuel SandhuGlucose [Mass/Vol]109 mg/dLCritically jezb11-007Mfh [facility] HospitalComment on above:Performed By: #### CMP JENNIE, LIPA #### [facility] [address] [place] [address] Dr. Manuel SandhuPotassium [Moles/Vol]3.4 mmol/LCritically low3.5-5.1The [facility] HospitalComascension providence hospital on above:Performed By: #### CMP JENNIE, LIPA #### [facility] [address] [place] [address] Dr. Manuel SandhuProtein [Mass/Vol]8.2 g/dLNormal6.4-8.2[facility] Comment on above:Performed By: #### CMP, JENNIE, LIPA #### [facility] [address] [place] [address] Dr. Manuel SandhuSodium [Moles/Vol]137 mmol/EQfmcwn512-309GbpSelect Medical [facility] Comment on above:Performed By: #### CMP, JENNIE, LIPA #### [facility] [address] [place] [address] Dr. Manuel SandhuUrea nitrogen [Mass/Vol]10.0 mg/dLNormal7.0-18.0The [facility] HospitalComment on above:Performed By: #### CMP, JENNIE, LIPA #### [facility] [address] [place] [address] Dr. Manuel Ramirez nitrogen/Creatinine [Mass ratio]14.1 mg/mgNoHolzer Health SystemComment on above:Performed By: #### CMP, JENNIE, LIPA #### [facility] [address] [place] [address] Dr. Manuel SandhuPROTIMEon 44-01-4309JTM Coag (PPP) [Relative time]0.96 {INR} NormalThe [facility] HospitalComment on above:Performed By: #### INFLUAB #### [facility] [address] [place] [address] Dr. Manuel Esteves GUIDELINESSEE McKitrick HospitalComment on above:Result Comment: DESIRED INR: 2.0 - 3.0 CONDITIONS NOT LISTED BELOW 2.5 - 3.5 FOR PROSTHETIC HEART VALVE REPLACEMENT 2.5 - 3.5 RECURRENT THROMBOSIS Performed By: #### INFLUAB #### [facility] [address] [place] [address] Dr. Manuel SandhuPT Coag (PPP) [Time]10.4 sNormal9.0-11.6The [facility] Comment on above:Performed By: #### INFLUAB #### [facility] [address] [place] [address] Dr. Manuel Tena 07-72-4006gLMO Coag (Bld) [Time]25.3 eZvubzc14.3-36.2[facility] ShawComment on above:Performed By: #### INFLUAB #### [facility] [address] [place] [address] Dr. Manuel Juarez, HIGH SENSITIVITYon 87-84-5308ZLLEEY2.5 pg/mLNormal 4.0-51.3The [facility] on above:Result Comment: CUT-OFF POINTS HAVE BEEN ESTABLISHED BASED ON THE FOURTH UNIVERSAL DEFINITIONS OF MYOCARDIAL INFARCTION. THE UPPER REFERENCE LIMIT (URL) OF TROPONIN, DEFINED THE 99TH PERCENTILE OF cTnI DISTRIBUTION IN A REFERENCE POPULATION, HAS BEEN CONFIRMED THE DECISION THRESHOLD FOR GA DIAGNOSIS.Performed By: #### CMP, JENNIE, LIPA #### [facility] [address] [place], [place] [address] Dr. Manuel Caba 31-40-0348OKP8.778 uIU/mLNormal0.358-3.740The [facility] HospitalComment on above:Performed By: #### CMP, JENNIE, LIPA #### [facility] [address] [place], [place] [address] Dr. Manuel SandhuCHEMISTRYOrdered By: SYSTEM SYSTEM on 74-53-5293Quqns gap [Moles/Vol]11 mmol/LNormal6 - 16 mEq/LFTMC RemisolCalcium [Mass/Vol]9.0 mg/dL Normal8.9 - 11.1 mg/dLFTMC RemisolChloride [Moles/Vol]105 mmol/JEqucpw207 - 111 mmol/LFTMC RemisolCO2 [Moles/Vol]25 mmol/HDlcrws26 - 31 mmol/LFTMC Remisol Creatinine [Mass/Vol]0.6 mg/dLNormal0.5 - 1.3 mg/dLFT RemisolGFR/1.73 sq M.predicted among blacks MDRD (S/P/Bld) [Vol rate/Area]mL/min/1.73 n5Inzvyt >=59mL/min/1.73 m2FT Chem SGFR/1.73 sq M.predicted among non-blacks MDRD (S/P/Bld) [Vol rate/Area]mL/min/1.73 p4Lupyfv>=59mL/min/1.73 m2[facility] S Glucose [Mass/Vol]84 mg/lMNlvdqq84 - 199 mg/dLFTMC RemisolPotassium [Moles/Vol] 4.2 mmol/LNormal3.5 - 5.3 mmol/LFTMC RemisolSodium [Moles/Vol]137 mmol/LNormal 135 - 145 mmol/LFTMC RemisolUrea nitrogen [Mass/Vol]13 mg/dLNormal5 - 21 mg/dL [facility] RemisolUrea nitrogen/Creatinine [Mass ratio]22 mg/yeYxix95 - 20[facility] Remisol CHEMISTRYOrdered By: Lab ROPUser on 86-76-7500Jjxevyq [Mass/Vol]98 mg/tBQtlvtv25 - 99 mg/dLFT POC SubsectionPOC Device [id number] Interpretation CodeINTEGRIS HEALTH [facility]MON[facility] POC SubsectionPOC User [id number] Interpretation CodeINTEGRIS HEALTH [facility] POC SubsectionPOC UsernamMOLLY ChengInvalid Interpretation CodeINTEGRIS HEALTH [facility]MON[facility] POC SubsectionHEMATOLOGYOrdered By: SYSTEM SYSTEM on 15-98-0658Cqyuxrnyt/100 WBC (Bld)0.5 %Normal0.0 - 2.0 %[facility] HemeAutoSSBasophils/Leukocytes Auto (Bld) [Pure # fraction]0.1 E9/LNormal0.0 - 0.2 E9/LFTMC HemeAutoSSEosinophils/100 WBC (Bld) 2.8 %Normal0.0 - 8.0 %[facility] HemeAutoSSEosinophils/Leukocytes Auto (Bld) [Pure # fraction]0.3 E9/LNormal0.0 - 0.5 E9/LFTMC HemeAutoSSLymphocytes/100 WBC (Bld) 15.7 %Ugpiyl65.0 - 50.0 %[facility] HemeAutoSSLymphocytes/Leukocytes Auto (Bld) [Pure # fraction]1.7 E9/LNormal1.0 - 4.0 E9/LFTMC HemeAutoSSMonocytes/100 WBC (Bld)6.2 %Normal4.0 - 14.0 %[facility] HemeAutoSSMonocytes/Leukocytes Auto (Bld) [Pure # fraction]0.7 E9/LNormal0.2 - 1.0 E9/LFTMC HemeAutoSSNeutrophils/100 WBC (Bld) 74.8 %Udlugg38.0 - 75.0 %[facility] HemeAutoSSNeutrophils/Leukocytes Auto (Bld) [Pure # fraction]8.3 E9/LHigh2.0 - 7.5 E9/LFTMC HemeAutoSSHEMATOLOGYOrdered By: Shasta Eller on 30-77-7278Pjycekgtwad distribution width (RBC) [Ratio]14.1 %Normal 10.9 - 14.2 %[facility] HemeAutoSSHematocrit (Bld) [Volume fraction]34.9 %Hbqcax03.0 - 46.0 %[facility] HemeAutoSSHemoglobin (Bld) [Mass/Vol]11.9 g/dLLow12.0 - 16.0 gm/dL [facility] HemeAutoSSMCH (RBC) [Entitic mass]32.2 qkQenpsr74.0 - 34.0 pgFTMC HemeAutoSSMCHC (RBC) [Mass/Vol]34.1 g/eGLlaxoe58.4 - 36.0 gm/dLFTMC HemeAutoSS MCV (RBC) [Entitic vol]94.5 dRHlukwe73.0 - 100.0 fLFT HemeAutoSSPlatelet mean volume (Bld) [Entitic vol]9.0 fLNormal6.4 - 10.8 fLFTMC HemeAutoSSPlatelets (Bld) [#/Vol]288.0 E9/NCzfmsq929.0 - 500.0 E9/LFTMC HemeAutoSSRBC (Bld) [#/Vol] 3.7 E12/LLow4.3 - 5.9 E12/LFC HemeAutoSSWBC corrected for nucl RBC Auto (Bld) [#/Vol]11.1 E9/LHigh4.0 - 11.0 E9/LFTMC HemeAutoSSMICRO OTHER TESTSOrdered By: Kimberli Briseno on 85-34-2776Ialapxxsnf A AgNegative (08/08/22 9:59 AM)NormalNegativeIN[facility] [place] [facility] SeroInfluenzae B AgNegative (08/08/22 9:59 AM)NormalNegativeIN[facility] [place] [facility] SeroRapid COV Int NEG CtlPass (08/08/22 9:59 AM)NormalFT Man SeroRapid COV Int POS CtlPass (08/08/22 9:59 AM)NormalINTE[facility] [place] [facility] SeroSARS-CoV+SARS-CoV-2 (COVID-19) Ag IA.rapid Ql (Resp)Not Detected (08/08/22 9:59 AM)NormalNot DetectedINTEGRIS [facility]ALTH [facility] [place] [facility] SeroSEROLOGYOrdered By: Kimberli Briseno on 36-98-4437Rjee hCG QlNegative (08/08/22 9:51 AM)NormalINTEGRIS [facility] [place] [facility] SeroURINALYSISOrdered By: Kimberli Briseno on 19-52-1412Myaylwmau Ql (U)Negative (08/08/22 10:01 AM)NormalNegativeIN[facility] [place] UA Auto SSClarity (U)Clear (08/08/22 10:01 AM)NormalClearFBEAVER [facility] [place] [facility] Auto SSColor (U)Yellow (08/08/22 10:01 AM)NormalYellowINTEGRIS [facility] [place] [facility] Auto SSEpithelial cells.squamous LM.HPF (Urine sed) [#/Area]3-4 /HPFNormal0-2/HPFINTEGRIS HEALTH [facility] [place] [facility] Auto SSGlucose Test strip (U) [Mass/Vol]Negative (08/08/22 10:01 AM)NormalNegativeINTEGR[facility] [place] [facility] Auto SSHemoglobin Ql (U)Negative (08/08/22 10:01 AM)NormalNegativeINTE[facility] [place] [facility] Auto SSKetones (U) [Mass/Vol]Negative (08/08/22 10:01 AM)NormalNegativeINTE[facility] [place] [facility]A Auto SSLithium.plasma/Ansted.RBC (Bld) [Mass ratio]0-3 /HPFNormal0-3/HPFINTEGRIS [facility] [place] [facility] Auto SSNitrite Ql (U)Negative (08/08/22 10:01 AM)NormalNegativeIN[facility] [place] [facility] Auto SSpH (U)5.5 *NA* (08/08/22 10:01 AM)Invalid Interpretation Code5.0 - 9.0[facility] Auto SSProtein (U) [Mass/Vol]Negative (08/08/22 10:01 AM)NormalNegativeINTEGRIS [facility] [place] [facility] Auto SSSpecific gravity (U) [Rel density]<=1.005 *NA* (08/08/22 10:01 AM)Invalid Interpretation Code1.005 - 1.030[facility] Auto SSUA Spec DescClean Catch (08/08/22 10:01 AM)NormalINTEGRIS [facility] [place] [facility] Auto SSUrobilinogen Qn (U)0.6614255 {Lucila'U}/dLNormal0.0 - 1.0 EU/dLINTEGRIS [facility]ALTH [facility] [place] [facility]A Auto SSWBC Auto Ql (U)Negative (08/08/22 10:01 AM)NormalNegativeINTEGR[facility] [place] [facility] Auto SSWBC LM.HPF (Urine sed) [#/Area] 0-5 /HPFNormal0-5/HPFINTEGRIS HEALTH [facility]MON[facility] [place] [facility] Auto SSCBC AUTO DIFFon 84-25-4560PGCM #0.1 103/ul Normal0.0-0.1The [facility] HospitalComment on above:Performed By: #### INFLUAB #### [facility] [address] [place] [address] Dr. Manuel SandhuBasophils/100 WBC (Bld)0.4 %Normal0.2-2.0[facility] Comment on above:Performed By: #### INFLUAB #### [facility] [address] [place] [address] Dr. Manuel Anthony #0.3 103/ulNormal0.0-0.7The [facility] HospitalComment on above: Performed By: #### INFLUAB #### [facility] [address] [place] [address] Dr. Manuel Gonzalesosinophils/100 WBC (Bld)2.4 %Normal0.9-7.0The [facility] Comment on above:Performed By: #### INFLUAB #### [facility] [address] [place] [address] Dr. Manuel Gonzalesrythrocyte distribution width (RBC) [Ratio]13.7 %Pzqdvl18.0-15.0 The [facility] HospitalComment on above:Performed By: #### INFLUAB #### [facility] [address] [place] [address] Dr. Manuel SandhuHematocrit (Bld) [Volume fraction]36.5 %Pwtvis90.0-48.0The [facility] HospitalComment on above:Performed By: #### INFLUAB #### [facility] [address] [place] [address] Dr. Manuel SandhuHemoglobin (Bld) [Mass/Vol]12.3 g/qZGavdrt65.0-16.0The [facility] HospitalComment on above:Performed By: #### INFLUAB #### [facility] [address] [place] [address] Dr. Manuel Fletcher #0.04 10e3/ulCritically high0.00-0.03The [facility] Comment on above:Performed By: #### INFLUAB #### [facility] [address] [place] [address] Dr. Manuel Fletcher %0.3 %Normal0.0-0.5The [facility] HospitalComment on above: Performed By: #### INFLUAB #### [facility] [address] [place] [address] Dr. Manuel Mac #2.6 103/ulNormal1.2-3.8The [facility] HospitalComment on above:Performed By: #### INFLUAB #### [facility] [address] [place] [address] Dr. Manuel Poolehocytes/100 WBC (Bld)22.3 %Ilqcnn01.5-60.0The [facility] HospitalComasc[facility] prov[facility] on above:Performed By: #### INFLUAB #### [facility] [address] [place] [address] Dr. Manuel WilhelmUAL DIFF REQNONormalThe [facility] HospitalComment on above: Performed By: #### INFLUAB #### [facility] [address] [place] [address] Dr. Manuel Hu (RBC) [Entitic mass]32.5 yrBhhmkm89.7-34.0The [facility] HospitalComment on above:Performed By: #### INFLUAB #### [facility] [address] [place] [address] Dr. Manuel Hu (RBC) [Mass/Vol]33.7 g/gBWdcmdu70.9-35.2The [facility] HospitalComasc[facility] hospital on above:Performed By: #### INFLUAB #### [facility] [address] [place] [address] Dr. Manuel Hu (RBC) [Entitic vol]96.6 gODblyqk59.0-99.0The [facility] HospitalComasc[facility] on above:Performed By: #### INFLUAB #### [facility] [address] [place] [address] Dr. Manuel Keith #0.6 103/ulNormal0.3-0.8The [facility] HospitalComment on above:Performed By: #### INFLUAB #### [facility] [address] [place] [address] Dr. Manuel SandhuMonocytes/100 WBC (Bld)5.2 %Normal1.7-12.0The [facility] Comment on above:Performed By: #### INFLUAB #### [facility] [address] [place] [address] Dr. Manuel RebollarUT #8.2 103/ulCritically high1.4-6.5The [facility] Comment on above:Performed By: #### INFLUAB #### [facility] [address] [place] [address] Dr. Manuel Rebollarutrophils/100 WBC (Bld)69.4 %Pgfwjr96.0-75.0The [facility] HospitalComment on above:Performed By: #### INFLUAB #### [facility] [address] [place] [address] Dr. Manuel SandhuPlatelet mean volume (Bld) [Entitic vol]11.2 fLNormal9.5-13.5The [facility] HospitalComment on above:Performed By: #### INFLUAB #### [facility] [address] [place] [address] Dr. Manuel SandhuPLT308 103/xiQdyovt048-115Ncz [facility] HospitalComment on above: Performed By: #### INFLUAB #### [facility] [address] [place] [address] Dr. Manuel SandhuRBC3.78 106/ulCritically low4.20-5.40The [facility] HospitalComment on above:Performed By: #### INFLUAB #### [facility] [address] [place] [address] Dr. Manuel SandhuWBC11.8 103/ulCritically high4.0-11.0The [facility] HospitalComment on above:Performed By: #### INFLUAB #### [facility] [address] [place] [address] Dr. Manuel Hanson-DIMERon 11-11-2074X-DIMER0.29 mg/L FEUNormal<=0.59The [facility] HospitalComment on above:Performed By: #### AVNI PERALTA #### [facility] [address] [place] [address] Dr. Manuel SandhuD-DIMER COMMENTSSEE BELOWUniversity Hospitals Parma Medical Center on above:Result Comment: Increases in D-Dimer concentration observed with thromboembolic events [...] stress, and generalized hospitalization. Performed By: #### AVNI PERALTA #### [facility] [address] [place] [address] Dr. Manuel SandhuLIPASEon 52-30-7852Uoasdq [Catalytic activity/Vol]119.0 U/LNormal 73.0-393.0The [facility] on above:Performed By: #### CMP, JENNIE, LIPA #### [facility] [address] [place] [address] Dr. Manuel SandhuPRODiane 14(COMP METB)on 41-08-8107Zppuqht [Mass/Vol]3.5 g/dLNormal 3.4-5.0The [facility] on above:Performed By: #### CMP, JENNIE, LIPA #### [facility] [address] [place] [address] Dr. Manuel SandhuAlbumin/Globulin [Mass ratio]1.0 {ratio}NormalThe [facility] on above:Performed By: #### CMP, JENNIE, LIPA #### [facility] [address] [place] [address] Dr. Manuel Yu [Catalytic activity/Vol]65 U/RIihfwn20-702Isf [facility] on above:Performed By: #### CMP, JENNIE, LIPA #### [facility] [address] [place] [address] Dr. Manuel Montana [Catalytic activity/Vol]33 U/UMwirsl80-16Xlf [facility] HospitalComment on above:Performed By: #### CMP, JENNIE, LIPA #### [facility] [address] [place] [address] Dr. Manuel SandhuAnion gap [Moles/Vol]10.8 mmol/LNormalSelect [facility] Comment on above:Performed By: #### CMP, JENNIE, LIPA #### [facility] [address] [place] [address] Dr. Manuel SandhuAST [Catalytic activity/Vol]20 U/YRobram25-65Fov [facility] HospitalComment on above:Performed By: #### CMP, JENNIE, LIPA #### [facility] [address] [place] [address] Dr. Manuel SandhuBilirubin [Mass/Vol]0.1 mg/dLCritically low0.2-1.0The [facility] HospitalComment on above:Performed By: #### CMP, JENNIE, LIPA #### [facility] [address] [place] [address] Dr. Manuel SandhuCalcium [Mass/Vol]8.7 mg/dLNormal8.5-10.1[facility] Comment on above:Performed By: #### CMP, JENNIE, LIPA #### [facility] [address] [place] [address] Dr. Manuel SandhuChloride [Moles/Vol]105 mmol/OCwojko67-025QerSelect Medical [facility] Comment on above:Performed By: #### CMP, JENNIE, LIPA #### [facility] [address] [place] [address] Dr. Manuel SandhuCO2 [Moles/Vol]24.4 mmol/HBzcopk62.0-32.0[facility] Comment on above:Performed By: #### CMP, JENNIE, LIPA #### [facility] [address] [place] [address] Dr. Manuel SandhuCreatinine [Mass/Vol]0.91 mg/dLNormal0.55-1.02The [facility] HospitalComment on above:Performed By: #### CMP, JENNIE, LIPA #### [facility] [address] [address] [address] Manuel GonzalesGFR-AF SAMOAN>60Normal>=60The [facility] HospitalComment on above:Performed By: #### CMP, JENNIE, LIPA #### [facility] [address] [address] [address] Manuel GonzalesGFR-NON AF SAMOAN>60Normal>=60The [facility] HospitalComment on above:Performed By: #### CMP, JENNIE, LIPA #### [facility] [address] [address] [address] Manuel SandhuGlobulin (S) [Mass/Vol]3.4 g/dLNormalThe [facility] HospitalComment on above:Performed By: #### CMP, JENNIE, LIPA #### [facility] [address] [address] [address] Manuel SandhuGlucose [Mass/Vol]127 mg/dLCritically oyzd76-232Wrz [facility] HospitalComment on above:Performed By: #### CMP, JENNIE, LIPA #### [facility] [address] [address] [address] Manuel SandhuPotassium [Moles/Vol]3.2 mmol/LCritically low3.5-5.1The [facility] HospitalComment on above:Performed By: #### CMP, JENNIE, LIPA #### [facility] [address] [address] [address] Manuel SandhuProtein [Mass/Vol]6.9 g/dLNormal6.4-8.2The [facility] Comment on above:Performed By: #### CMP, JENNIE, LIPA #### [facility] [address] [address] [address] Manuel SandhuSodium [Moles/Vol]137 mmol/YQotpvk100-237JneSelect Medical [facility] Comment on above:Performed By: #### CMP, JENNIE, LIPA #### [facility] [address] [address] [address] Manuel SandhuUrea nitrogen [Mass/Vol]13.0 mg/dLNormal7.0-18.0[facility], [facility] ShawComment on above:Performed By: #### CMP, JENNIE, LIPA #### [facility] [address] [place] [address] Dr. Manuel Ramirez nitrogen/Creatinine [Mass ratio]14.3 mg/mgNoHolzer Health SystemComment on above:Performed By: #### CMP, JENNIE, LIPA #### [facility] [address] [place] [address] Dr. Manuel SandhuPROTIMEon 89-45-1831SNW Coag (PPP) [Relative time]0.97 {INR} NormalThe [facility] HospitalComment on above:Performed By: #### PTT, PT #### [facility] [address] [place] [address] Dr. Manuel Esteves GUIDELINESSEE BELOWGreene Memorial HospitalComment on above:Result Comment: DESIRED INR: 2.0 - 3.0 CONDITIONS NOT LISTED BELOW 2.5 - 3.5 FOR PROSTHETIC HEART VALVE REPLACEMENT 2.5 - 3.5 RECURRENT THROMBOSIS Performed By: #### PTT, PT #### [facility] [address] [place] [address] Dr. Manuel SandhuPT Coag (PPP) [Time]10.5 sNormal9.0-11.6The [facility] Comment on above:Performed By: #### PTT, PT #### [facility] [address] [place] [address] Dr. Manuel Tena 31-70-0497wCMS Coag (Bld) [Time]26.1 aOumgmi58.3-36.2[facility] ShawComment on above:Performed By: #### PTT, PT #### [facility] [address] [place] [address] Dr. Manuel Juarez, [facility] SENSITIVITYon 22-27-9090ATPDYQ7.4 pg/mLNormal 4.0-51.3The [facility] HospitalComment on above:Result Comment: CUT-OFF POINTS HAVE BEEN ESTABLISHED BASED ON THE FOURTH UNIVERSAL DEFINITIONS OF MYOCARDIAL INFARCTION. THE UPPER REFERENCE LIMIT (URL) OF TROPONIN, DEFINED THE 99TH PERCENTILE OF cTnI DISTRIBUTION IN A REFERENCE POPULATION, HAS BEEN CONFIRMED THE DECISION THRESHOLD FOR GA DIAGNOSIS.Performed By: #### TAMARA PERALTAR #### [facility] [address] [place], [place] [address] Dr. Manuel SandhuHSTROP5.1 pg/mLNormal4.0-51.3TBluffton HospitalComment on above:Result Comment: CUT-OFF POINTS HAVE BEEN ESTABLISHED BASED ON THE FOURTH UNIVERSAL DEFINITIONS OF MYOCARDIAL INFARCTION. THE UPPER REFERENCE LIMIT (URL) OF TROPONIN, DEFINED THE 99TH PERCENTILE OF cTnI DISTRIBUTION IN A REFERENCE POPULATION, HAS BEEN CONFIRMED THE DECISION THRESHOLD FOR GA DIAGNOSIS.Performed By: #### CMPJENNIE, LIPA #### [facility] [address] [address] [address] Manuel SandhuXR CHEST 1 Von 90-54-4359WN CHEST 1 VPORTABLE CHEST X-RAY. INDICATION: Chest pain. COMPARISON: 06/12/2022 TECHNIQUE: Single AP portable chest radiograph. FINDINGS: TUBES AND LINES: None. LUNGS: Mildly elevated right hemidiaphragm. No focal opacity. PLEURA: No effusions or pneumothorax. HEART AND MEDIASTINUM: Within normal limits for portable technique. OSSEOUS STRUCTURES: No acute abnormality. IMPRESSION: No acute findings. Electronically authenticated by: LUCIANA ALLEN Date: 2022-07-19 19:28NormParma Community General HospitalCovid-19 PCR (CVDTBH)on 69-65-7477AKLR-CoV-2 (COVID-19) RNA JOSÉ MIGUEL+probe Ql (Unsp spec)Not detectedNormalNOT DETECTEDThe [facility] Comment on above:Result Comment: When diagnostic testing is negative, the [...] for this test is supported by the [employer] of Health and Human Service's declaration that circumstances exist to justify the emergency use of in vitro diagnostics for the detection and/or diagnosis of the virus that causes COVID-19. This EUA will remain in effect for the duration of the COVID-19 declaration justifying emergency of IVDs, unless it is terminated or revoked by the FDA (after which the test may no longer be used).Performed By: #### RACHEL, MARCELL PAGE #### [facility] [address] [address] [address] Manuel SandhuXR CHEST 2 Von 60-18-2940SV CHEST 2 VEXAMINATION: XR CHEST 2 V HISTORY: COUGH , acute dyspnea [...] Electronically authenticated by: CAROLYNE RALPH Date: 2022-06-12 10:12NoHolzer Health SystemCovid-19 PCR (CVDTBH)on 80-78-6910YTWH-CoV-2 (COVID-19) RNA JOSÉ MIGUEL+probe Ql (Unsp spec)Not detectedNormalNOT DETECTEDThe [facility] Comment on above:Result Comment: When diagnostic testing is negative, the [...] for this test is supported by the Richardson of Health and Human Service's declaration that circumstances exist to justify the emergency use of in vitro diagnostics for the detection and/or diagnosis of the virus that causes COVID-19. This EUA will remain in effect for the duration of the COVID-19 declaration justifying emergency of IVDs, unless it is terminated or revoked by the FDA (after which the test may no longer be used).Performed By: #### INFLUAB #### [facility] [address] [address] [address] Manuel SandhuCHEMISTRYOrdered By: SYSTEM SYSTEM on 21-15-6193Ykgzm gap [Moles/Vol]12 mmol/LNormal6 - 16 mEq/LFTMC RemisolCalcium [Mass/Vol]9.5 mg/dL Normal8.9 - 11.1 mg/dLFTMC RemisolChloride [Moles/Vol]107 mmol/SNjdbyb282 - 111 mmol/LFTMC RemisolCO2 [Moles/Vol]22 mmol/TSsaydo24 - 31 mmol/LFTMC Remisol Creatinine [Mass/Vol]0.6 mg/dLNormal0.5 - 1.3 mg/dLFTMC RemisolGFR/1.73 sq M.predicted among blacks MDRD (S/P/Bld) [Vol rate/Area]mL/min/1.73 t6Djtkek >=59mL/min/1.73 m2FT Chem SGFR/1.73 sq M.predicted among non-blacks MDRD (S/P/Bld) [Vol rate/Area]mL/min/1.73 s9Qrbxqe>=59mL/min/1.73 m2FT Chem S Glucose [Mass/Vol]98 mg/rIKhytyc07 - 199 mg/dLFTMC RemisolPotassium [Moles/Vol] 3.6 mmol/LNormal3.5 - 5.3 mmol/LFTMC RemisolSodium [Moles/Vol]137 mmol/LNormal 135 - 145 mmol/LFTMC RemisolUrea nitrogen [Mass/Vol]15 mg/dLNormal5 - 21 mg/dL FT RemisolUrea nitrogen/Creatinine [Mass ratio]25 mg/diPxqa26 - 20FT[facility] Remisol HEMATOLOGYOrdered By: SYSTEM SYSTEM on 02-60-3446Ysgzvqmsl/100 WBC (Bld)0.6 % Normal0.0 - 2.0 %[facility] HemeAutoSSBasophils/Leukocytes Auto (Bld) [Pure # fraction]0.1 E9/LNormal0.0 - 0.2 E9/LFTMC HemeAutoSSEosinophils/100 WBC (Bld)1.6 %Normal0.0 - 8.0 %[facility] HemeAutoSSEosinophils/Leukocytes Auto (Bld) [Pure # fraction]0.2 E9/LNormal0.0 - 0.5 E9/LFTMC HemeAutoSSLymphocytes/100 WBC (Bld) 18.1 %Glbcou37.0 - 50.0 %[facility] HemeAutoSSLymphocytes/Leukocytes Auto (Bld) [Pure # fraction]2.4 E9/LNormal1.0 - 4.0 E9/LFTMC HemeAutoSSMonocytes/100 WBC (Bld)6.2 %Normal4.0 - 14.0 %[facility] HemeAutoSSMonocytes/Leukocytes Auto (Bld) [Pure # fraction]0.8 E9/LNormal0.2 - 1.0 E9/LFTMC HemeAutoSSNeutrophils/100 WBC (Bld) 73.5 %Qeogye42.0 - 75.0 %[facility] HemeAutoSSNeutrophils/Leukocytes Auto (Bld) [Pure # fraction]9.6 E9/LHigh2.0 - 7.5 E9/LFTMC HemeAutoSSHEMATOLOGYOrdered By: Shasta Eller on 54-49-3880Rttuugcdxzq distribution width (RBC) [Ratio]14.2 %Normal 10.9 - 14.2 %[facility] HemeAutoSSHematocrit (Bld) [Volume fraction]39.3 %Jzdsae82.0 - 46.0 %[facility] HemeAutoSSHemoglobin (Bld) [Mass/Vol]12.9 g/zJJykmbn95.0 - 16.0 gm/dL [facility] HemeAutoSSMCH (RBC) [Entitic mass]31.1 rcEsenkc09.0 - 34.0 pgFTMC HemeAutoSSMCHC (RBC) [Mass/Vol]32.7 g/rQQectdp72.4 - 36.0 gm/dLFTMC HemeAutoSS MCV (RBC) [Entitic vol]95.1 zFIwclwd51.0 - 100.0 fLFTMC HemeAutoSSPlatelet mean volume (Bld) [Entitic vol]9.7 fLNormal6.4 - 10.8 fLFTMC HemeAutoSSPlatelets (Bld) [#/Vol]312.0 E9/BPbncee605.0 - 500.0 E9/LFTMC HemeAutoSSRBC (Bld) [#/Vol] 4.1 E12/LLow4.3 - 5.9 E12/LFTMC HemeAutoSSWBC corrected for nucl RBC Auto (Bld) [#/Vol]13.1 E9/LHigh4.0 - 11.0 E9/LFTMC HemeAutoSSCovid-19 PCR (CVDTBH)on 50-90-5216ATKB-CoV-2 (COVID-19) RNA JOSÉ MIGUEL+probe Ql (Unsp spec)DetectedCritically abnormalNOT DETECTEDThe [facility] HospitalComment on above:Result Comment: This test is not yet approved or cleared by the [place] FDA. When there are no FDA-approved or cleared tests available, and other criteria are met, FDA can make tests available under an emergency access mechanism called an Emergency Use Authorization (EUA). The EUA for this test is supported by the Richardson of Health and Human Service's declaration that circumstances exist to justify the emergency use of in vitro diagnostics for the detection and/or diagnosis of the virusthat causes COVID-19. This EUA will remain in effect for the duration of the COVID-19 declaration justifying emergency of IVDs, unless it is terminated or revoked by the FDA (after which the test mayno longer be used).Performed By: #### JENNIE RAMOS LIPA #### [facility] [address] [place] [address] Dr. Manuel Lehman STREP CULTUREon 04-07-2022. pyogenes Ag Ql (Unsp spec) Culture Observations: NEGATIVE FOR GROUP A STREPTOCOCCUS.NormalThe [facility] HospitalComment on above: Performed By: #### TAMARA PERALTAR #### [facility] [address] [address] [address] Manuel SandhuINFLKENYATTA A AND B AGon 30-20-5050FEQWIVOLE A AGNegativeNormal NEGATIVE SEE COMMENTThe [facility] HospitalComment on above:Performed By: #### INFLUAB #### [facility] [address] [place] [address] Dr. Manuel Patel B AGNegativeNormalNEGATIVE SEE COMMENTThe [facility] Galion Hospitalment on above:Performed By: #### INFLUAB #### [facility] [address] [address] [address] Manuel SandhuINTERNAL CONTROLSWithin Normal LimitsNormalWithin Normal Limits The [facility] HospitalComment on above:Performed By: #### INFLUAB #### [facility] [address] [place], [place] [address] Dr. Manuel SandhuSTREPT SCREENon 58-19-7714JUOPJ SCREEN ANegativeNormalNEGATIVEThe [facility] HospitalComment on above:Performed By: #### UMICRO, ERUR #### [facility] [address] [address] [address] Manuel SandhuCHEMISTRYOrdered By: SYSTEM SYSTEM on 06-78-7364Xlqdg gap [Moles/Vol]14 mmol/LNormal6 - 16 mEq/LFTMC RemisolCalcium [Mass/Vol]9.3 mg/dL Normal8.9 - 11.1 mg/dLFTMC RemisolChloride [Moles/Vol]106 mmol/FSsivfc875 - 111 mmol/LFTMC RemisolCO2 [Moles/Vol]22 mmol/NLzfwip52 - 31 mmol/LFTMC Remisol Cobalamin (Vitamin B12) [Mass/Vol]658 pg/bWRuomdj60 - 1500 pg/mLFTMC Remisol Creatinine [Mass/Vol]0.7 mg/dLNormal0.5 - 1.3 mg/dLFTMC RemisolFolate [Mass/Vol] ng/mLNormal>=6.7ng/mLFTMC RemisolGFR/1.73 sq M.predicted among blacks MDRD (S/P/Bld) [Vol rate/Area]mL/min/1.73 x7Bapxej>=59mL/min/1.73 m2FT[facility] Chem S GFR/1.73 sq M.predicted among non-blacks MDRD (S/P/Bld) [Vol rate/Area] mL/min/1.73 o9Giuffh>=59mL/min/1.73 m2FT[facility] Chem SGlucose [Mass/Vol]83 mg/dL Wgkqwe93 - 199 mg/dLFTMC RemisolIron [Mass/Vol]65 ug/iARbeoui98 - 153 mcg/dLFTMC RemisolMagnesium [Mass/Vol]1.9 mg/dLNormal1.3 - 2.4 mg/dLFTMC RemisolPotassium [Moles/Vol]3.7 mmol/LNormal3.5 - 5.3 mmol/LFTMC RemisolSodium [Moles/Vol]138 mmol/TYohanx594 - 145 mmol/LFTMC RemisolUrea nitrogen [Mass/Vol]13 mg/dLNormal5 - 21 mg/dLFTMC RemisolUrea nitrogen/Creatinine [Mass ratio]19 mg/pnBbthje94 - 20 [facility] RemisolHEMATOLOGYOrdered By: SYSTEM SYSTEM on 05-03-5438Lninlwtqm/100 WBC (Bld)0.7 %Normal0.0 - 2.0 %[facility] HemeAutoSSBasophils/Leukocytes Auto (Bld) [Pure # fraction]0.1 E9/LNormal0.0 - 0.2 E9/LFTMC HemeAutoSSEosinophils/100 WBC (Bld) 3.2 %Normal0.0 - 8.0 %[facility] HemeAutoSSEosinophils/Leukocytes Auto (Bld) [Pure # fraction]0.4 E9/LNormal0.0 - 0.5 E9/LFTMC HemeAutoSSLymphocytes/100 WBC (Bld) 24.5 %Whlhhl31.0 - 50.0 %[facility] HemeAutoSSLymphocytes/Leukocytes Auto (Bld) [Pure # fraction]2.8 E9/LNormal1.0 - 4.0 E9/LFTMC HemeAutoSSMonocytes/100 WBC (Bld)6.4 %Normal4.0 - 14.0 %[facility] HemeAutoSSMonocytes/Leukocytes Auto (Bld) [Pure # fraction]0.7 E9/LNormal0.2 - 1.0 E9/LFTMC HemeAutoSSNeutrophils/100 WBC (Bld) 65.2 %Marlzp17.0 - 75.0 %[facility] HemeAutoSSNeutrophils/Leukocytes Auto (Bld) [Pure # fraction]7.3 E9/LNormal2.0 - 7.5 E9/LFTMC HemeAutoSSHEMATOLOGYOrdered By: Hansa Marcos on [id number] distribution width (RBC) [Ratio]14.1 %Cdzhjg25.9 - 14.2 %[facility] HemeAutoSSHematocrit (Bld) [Volume fraction]37.3 %Xffkyt48.0 - 46.0 %[facility] HemeAutoSSHemoglobin (Bld) [Mass/Vol]12.4 g/mUPkxtms13.0 - 16.0 gm/dL [facility] HemeAutoSSMCH (RBC) [Entitic mass]31.6 ypOkcmod46.0 - 34.0 pgFTMC HemeAutoSSMCHC (RBC) [Mass/Vol]33.1 g/vJUdqrrn90.4 - 36.0 gm/dLFTMC HemeAutoSS MCV (RBC) [Entitic vol]95.4 pQZehani86.0 - 100.0 fLFTMC HemeAutoSSPlatelet mean volume (Bld) [Entitic vol]9.6 fLNormal6.4 - 10.8 fLFT HemeAutoSSPlatelets (Bld) [#/Vol]267.0 E9/PGfdejf507.0 - 500.0 E9/LFC HemeAutoSSRBC (Bld) [#/Vol] 3.9 E12/LLow4.3 - 5.9 E12/LFBEAVER [facility] HemeAutoSSWBC corrected for nucl RBC Auto (Bld) [#/Vol]11.3 E9/LHigh4.0 - 11.0 E9/LFC HemeAutoSSURINALYSISOrdered By: Aspen Leonard on [id number] Ql (U)Negative (04/03/22 6:51 PM)NormalNegativeFT UA Auto SSClarity (U)Clear (04/03/22 6:51 PM)NormalClearFTMC UA Auto SSColor (U)Yellow (04/03/22 6:51 PM)NormalYellowFT UA Auto SSEpithelial cells.squamous LM.HPF (Urine sed) [#/Area]0-2 /HPFNormal0-2/HPFFTMC UA Auto SSGlucose Test strip (U) [Mass/Vol]Negative (04/03/22 6:51 PM)NormalNegativeFT UA Auto SSHemoglobin Ql (U)Negative (04/03/22 6:51 PM)NormalNegativeIN[facility] [place] [facility] Auto SSKetones (U) [Mass/Vol]Negative (04/03/22 6:51 PM)NormalNegativeIN[facility] [place] [facility] Auto SSLithium.plasma/[place]sted.RBC (Bld) [Mass ratio]0-3 /HPFNormal0-3/HPFINTEGRIS [facility] [place] [facility] Auto SSNitrite Ql (U)Negative (04/03/22 6:51 PM)NormalNegativeIN[facility] [place] [facility] Auto SSpH (U)5.0 *NA* (04/03/22 6:51 PM)Invalid Interpretation Code5.0 - 9.0[facility] Auto SSProtein (U) [Mass/Vol]Negative (04/03/22 6:51 PM)NormalNegativeINTEGRIS [facility] [place] [facility] Auto SSSpecific gravity (U) [Rel density] 1.010 *NA* (04/03/22 6:51 PM)Invalid Interpretation Code1.005 - 1.030[facility] Auto SSUA Spec DescClean Catch (04/03/22 6:51 PM)NormalINTEGRIS [facility] [place] [facility] Auto SSUrobilinogen Qn (U)0.9110528 {Lucila'U}/dLNormal0.0 - 1.0 EU/dLINTEGRIS [facility] [place] [facility] Auto SSWBC Auto Ql (U)Negative (04/03/22 6:51 PM)NormalNegativeINTE[facility] [place] [facility] Auto SSWBC LM.HPF (Urine sed) [#/Area]0-5 /HPFNormal0-5/HPFINTEGRIS [facility]ALTH [facility] [place] UA Auto SSGROUP A STREP CULTUREon 02-08-2022. pyogenes Ag Ql (Unsp spec)Culture Observations: NEGATIVE FOR GROUP A STREPTOCOCCUS.NormalThe [facility] HospitalComment on above: Performed By: #### INFLUAB #### [facility] [address] [place] [address] Dr. Manuel Basurto SCREENon [id number] SCREEN ANegativeNormalNEGATIVEThe [facility] HospitalComment on above:Performed By: #### INFLUAB #### [facility] [address] [place] [address] Dr. Manuel Martino AUTO DIFFon [id number] #0.1 103/ulNormal0.0-0.1The [facility] HospitalComment on above:Performed By: #### CBC #### [facility] [address] [place] [address] Dr. Manuel SandhuBasophils/100 WBC (Bld)0.4 %Normal0.2-2.0[facility] Comment on above:Performed By: #### CBC #### [facility] [address] [place] [address] Dr. Manuel Anthony #0.4 103/ulNormal0.0-0.7The [facility] HospitalComment on above: Performed By: #### CBC #### [facility] [address] [place] [address] Dr. Manuel Gonzalesosinophils/100 WBC (Bld)3.0 %Normal0.9-7.0[facility] Comment on above:Performed By: #### CBC #### [facility] [address] [place] [address] Dr. Manuel Gonzalesrythrocyte distribution width (RBC) [Ratio]13.3 %Qzhtaw14.0-15.0 The [facility] HospitalComment on above:Performed By: #### CBC #### [facility] [address] [place] [address] Dr. Manuel SandhuHematocrit (Bld) [Volume fraction]36.8 %Pbxspc34.0-48.0The [facility] HospitalComment on above:Performed By: #### CBC #### [facility] [address] [place] [address] Dr. Manuel SandhuHemoglobin (Bld) [Mass/Vol]12.2 g/iTMtctqp32.0-16.0The [facility] HospitalComment on above:Performed By: #### CBC #### [facility] [address] [place] [address] Dr. Manuel Fletcher #0.04 10e3/ulCritically high0.00-0.03The [facility] Comment on above:Performed By: #### CBC #### [facility] [address] [address] [address] Manuel Fletcher %0.3 %Normal0.0-0.5The [facility] HospitalComment on above: Performed By: #### CBC #### [facility] [address] [place] [address] Dr. Manuel Mac #2.8 103/ulNormal1.2-3.8The [facility] HospitalComment on above:Performed By: #### CBC #### [facility] [address] [place] [address] Dr. Manuel Poolehocytes/100 WBC (Bld)23.0 %Qbotai55.5-60.0The [facility] HospitalComasc[facility] on above:Performed By: #### CBC #### [facility] [address] [place] [address] Dr. Manuel WilhelmUAL DIFF REQNONormalThe [facility] HospitalComment on above: Performed By: #### CBC #### [facility] [address] [place] [address] Dr. Manuel Wells (RBC) [Entitic mass]32.1 joSwtysf25.7-34.0The [facility] HospitalComment on above:Performed By: #### CBC #### [facility] [address] [place] [address] Dr. Manuel Hu (RBC) [Mass/Vol]33.2 g/jJGbwmyh27.9-35.2The [facility] HospitalComasc[facility] hospital on above:Performed By: #### CBC #### [facility] [address] [place] [address] Dr. Manuel Hu (RBC) [Entitic vol]96.8 dMAdqdom75.0-99.0The [facility] HospitalComasc[facility] on above:Performed By: #### CBC #### [facility] [address] [place] [address] Dr. Manuel Keith #0.7 103/ulNormal0.3-0.8The [facility] HospitalComment on above:Performed By: #### CBC #### [facility] [address] [address] [address] Manuel Suarezocytes/100 WBC (Bld)5.6 %Normal1.7-12.0The [facility] Comment on above:Performed By: #### CBC #### [facility] [address] [place] [address] Dr. Manuel Hurtado #8.2 103/ulCritically high1.4-6.5The [facility] Comment on above:Performed By: #### CBC #### [facility] [address] [place] [address] Dr. Manuel Rebollarutrophils/100 WBC (Bld)67.7 %Uddtoe69.0-75.0The [facility] HospitalComment on above:Performed By: #### CBC #### [facility] [address] [place] [address] Dr. Manuel Burtonlet mean volume (Bld) [Entitic vol]11.2 fLNormal9.5-13.5The [facility] HospitalComment on above:Performed By: #### CBC #### [facility] [address] [place] [address] Dr. Manuel SandhuPLT312 103/vhMlwdns389-418Qpr [facility] HospitalComment on above: Performed By: #### CBC #### [facility] [address] [place] [address] Dr. Manuel SandhuRBC3.80 106/ulCritically low4.20-5.40The [facility] HospitalComment on above:Performed By: #### CBC #### [facility] [address] [place] [address] Dr. Manuel SandhuWBC12.1 103/ulCritically high4.0-11.0The [facility] HospitalComment on above:Performed By: #### CBC #### [facility] [address] [place] [address] Dr. Manuel SandhuCovid-19 PCR (CVDTB)on 61-27-7487GPWK-CoV-2 (COVID-19) RNA JOSÉ MIGUEL+probe Ql (Unsp spec)Not detectedNormalNOT DETECTEDThe [facility] Comment on above:Result Comment: This test is not yet approved or cleared by the [place] FDA. When there are no FDA-approved or cleared tests available, and other criteria are met, FDA can make tests available under an emergency access mechanism called an Emergency Use Authorization (EUA). The EUA for this test is supported by the [place] of Health and Human Service's (HHS's) declaration that circumstances exist to justify the emergency use of in vitro diagnostics for the detection and/or diagnosis of the virus that causes COVID- 19. This EUA will remain in effect (meaning [...] of clinical signs and symptoms consistent with SARS-CoV-2.Performed By: #### CVDTB #### [facility] [address] [place] [address] Dr. Manuel SandhuDRUG SCREEN RAPID (URINE)on [id number]H [facility] ShawComment on above:Performed By: #### AVNI PERALTA #### [facility] [address] [place] [address] Dr. Manuel SandhuBARNegativeNormalNEGATIVESelect [facility] ShawComment on above: Performed By: #### TAMARA PERALTAR #### [facility] [address] [place] [address] Dr. Manuel FriasPNegativeNormalNEGATIVESelect [facility] ShawComment on above: Performed By: #### TAMARA PERALTAR #### [facility] [address] [place] [address] Dr. Manuel SandhuBZONegativeNormalNEGSamaritan HospitalComment on above: Performed By: #### TAMARA PERALTAR #### [facility] [address] [place] [address] Dr. Manuel SandhuCOCNegativeNormalNEGSamaritan HospitalComment on above: Performed By: #### TAMARA PERALTAR #### [facility] [address] [place] [address] Dr. Manuel ChapmanNationwide Children[facility] on above: Result Comment: AMP (Amphetamine): 500ng/mL, BAR (Barbituates): 200 ng/mL, BZO (Benzodiazepines): 150 ng/mL, BUP (Buprenorphine): 10 ng/mL, WISAM (Cocaine): 150 ng/mL, mAMP (Methamphetamine): 500 ng/mL, MTD (Methadone): 200 ng/mL, OPI (Opiates): 100 ng/mL, OXY (Oxycodone): 100 ng/mL, PCP (Phencyclidine): 25 ng/mL, PPX (Propoxyphene): 300 ng/mL, THC (Cannabinoids): 50 ng/mL, TCA (Trycyclic Antidepressants): 300 ng/mLPerformed By: #### TAMARA PERALTAR #### [facility] [address] [place] [address] Dr. Manuel SandhuDRUG CUT HEADERDRUG CLASS TEST SYSTEM CUT-OFF CONCENTRATIONS ARE FOLLOWS:NormalThe [facility] on above:Performed By: #### TAMARA PERALTAR #### [facility] [address] [place] [address] Dr. Manuel SandhumAMPNegativeFreeman Heart InstitutealNEGATIVEUniversity Hospitals Parma [facility] on above: Performed By: #### TAMARA PERALTAR #### [facility] [address] [place] [address] Dr. Manuel SandhuMTDNegativeNormalNEGATIVESelect [facility] ShawComasc[facility] on above: Performed By: #### TAMARA PERALTAR #### [facility] [address] [place] [address] Dr. Manuel GaitaniveNormalNEGATIVEUniversity Hospitals Parma Medical Center on above: Performed By: #### TAMARA PERALTAR #### [facility] [address] [place] [address] Dr. Manuel HawkinsNegativeNormalNEGATIVEThe [facility] HospitalComment on above: Performed By: #### KATHRYN, ERUR #### [facility] [address] [address] [address] Manuel SandhuPCPNegativeNormalNEGATIVESelect [facility] ShawComasc[facility] hospital on above: Performed By: #### KATHRYN, ERUR #### [facility] [address] [place] [address] Dr. Manuel SandhuPPXNegativeNormalNEGATIVESelect [facility] ShawComasc[facility] hospital on above: Performed By: #### KATHRYN, ERUR #### [facility] [address] [place] [address] Dr. Manuel SandhuTCANegativeNormalNEGATIVESelect [facility] ShawCom[facility] hospital on above: Performed By: #### KATHRYN, ERUR #### [facility] [address] [place] [address] Dr. Manuel SandhuTHCNegativeNormalNEGATIVESelect [facility]Comasc[facility] hospital on above: Performed By: #### KATHRYN ERUR #### [facility] [address] [place] [address] Dr. Manuel Rodriguez URINE PROFILEon [id number] Ql (U)NegativeNormal NEGATIVESelect [facility] ShawComasc[facility] prov[facility] hospital on above:Performed By: #### KATHRYN, ERUR #### [facility] [address] [place] [address] Dr. Manuel Eid (U)CLEARNormalCLEARSelect Medical [facility] ShawComascension prov[facility] hospital on above: Performed By: #### KATHRYN, ERUR #### [facility] [address] [place] [address] Dr. Manuel Gautam (U)LT. YELLOWNormalYELLOWSelect Medical [facility] ShawComascension providence hospital on above:Performed By: #### KATHRYN, ERUR #### [facility] [address] [place] [address] Dr. Manuel BennettDA micrscopic examination will be performed if indicated. NormalThe [facility] HospitalComascension providence hospital on above:Performed By: #### KATHRYN, ERUR #### [facility] [address] [place] [address] Dr. Manuel SandhuGlucose Ql (U)NegativeNormalNEGATIVESelect [facility] ShawComment on above:Performed By: #### TAMARA PERALTAR #### [facility] [address] [place] [address] Dr. Manuel SandhuHemoglobin Ql (U)NegativeNormalNEGATIVESelect [facility] Comment on above:Performed By: #### KATHRYN ERUR #### [facility] [address] [place] [address] Dr. Manuel SandhuKetones Ql (U)NegativeNormalNEGATIVESelect [facility] ShawComment on above:Performed By: #### TAMARA PERALTAR #### [facility] [address] [place] [address] Dr. Manuel SandhuLEUKOCYTESNegativeNormalNEGATIVESelect [facility] ShawComment on above:Performed By: #### TAMARA PERALTAR #### [facility] [address] [place] [address] Dr. Manuel SandhuNitrite Ql (U)NegativeNormalNEGATIVESelect [facility], Edwin ShawComment on above:Performed By: #### TAMARA PERALTAR #### [facility] [address] [place] [address] Dr. Manuel SandhupH (U)5.5 [pH]Normal5-9[facility] ShawComment on above: Performed By: #### TAMARA PERALTAR #### [facility] [address] [place] [address] Dr. Manuel SandhuSPEC GRAVITY<=1.112Pbxqflwg9.005-<=1.025[facility] Comment on above:Performed By: #### TAMARA PERALTAR #### [facility] [address] [place] [address] Dr. Manuel SandhuUA PROTEINNegativeNormalNEGATIVE/ TRACESelect [facility] Comment on above:Performed By: #### AVNI PERALTA #### [facility] [address] [place] [address] Dr. Manuel Robb MICRO INDNOT INDICATEDNoHolzer Health SystemComment on above:Performed By: #### KATHRYN ERUR #### [facility] [address] [place] [address] Dr. Manuel Vyas Qn (U)0.2 {Lucila'U}/dLNormal0.2 - 1.0The [facility] HospitalComment on above:Performed By: #### KATHRYN ERUR #### [facility] [address] [place] [address] Dr. Manuel AriasANOL (BLD ALC)on [phone] NOTENOTE: 80 mg/dl is the legal limit for a blood alcohol levelGreene Memorial HospitalComascension providence hospital on above: Performed By: #### INFLUAB #### [facility] [address] [place] [address] Dr. Manuel Gonzalesthanol [Mass/Vol]47 mg/dLNoHolzer Health SystemComment on above:Performed By: #### INFLUAB #### [facility] [address] [place] [address] Dr. Manuel Dowling HCG QUALon [id number], QUALNegativeNormalNEGATIVE The [facility] on above:Performed By: #### KATHRYN ERUR #### [facility] [address] [place] [address] Dr. Manuel SandhuPROF 14(COMP METB)on 18-14-7124Inwsbht [Mass/Vol]3.8 g/dLNormal 3.4-5.0The [facility] HospitalComment on above:Performed By: #### INFLUAB #### [facility] [address] [place] [address] Dr. Manuel SandhuAlbumin/Globulin [Mass ratio]1.1 {ratio}NormalThe [facility] HospitalComascension providence hospital on above:Performed By: #### INFLUAB #### [facility] [address] [place] [address] Dr. Manuel SaavedraP [Catalytic activity/Vol]88 U/HUluzjj65-525Cxj [facility] HospitalComment on above:Performed By: #### INFLUAB #### [facility] [address] [address] [address] Manuel Montana [Catalytic activity/Vol]30 U/RAysynw40-50Hlv [facility] HospitalComment on above:Performed By: #### INFLUAB #### [facility] [address] [address] [address] Manuel Torreson gap [Moles/Vol]17.3 mmol/LNormalThe [facility] Comment on above:Performed By: #### INFLUAB #### [facility] [address] [address] [address] Manuel SandhuAST [Catalytic activity/Vol]17 U/XNtfsen17-44Xbo [facility] HospitalComment on above:Performed By: #### INFLUAB #### [facility] [address] [address] [address] Manuel SandhuBilirubin [Mass/Vol]0.2 mg/dLNormal0.2-1.0The [facility] Comment on above:Performed By: #### INFLUAB #### [facility] [address] [address] [address] Manuel SandhuCalcium [Mass/Vol]8.9 mg/dLNormal8.5-10.1[facility] Comment on above:Performed By: #### INFLUAB #### [facility] [address] [address] [address] Manuel SandhuChloride [Moles/Vol]109 mmol/LCritically djzg47-990Chm [facility] HospitalComment on above:Performed By: #### INFLUAB #### [facility] [address] [address] [address] Manuel SandhuCO2 [Moles/Vol]20.2 mmol/LCritically low21.0-32.0The [facility] HospitalComment on above:Performed By: #### INFLUAB #### [facility] [address] [address] [address] Manuel SandhuCreatinine [Mass/Vol]0.69 mg/dLNormal0.55-1.02[facility] ShawComment on above:Performed By: #### INFLUAB #### [facility] [address] [address] [address] Manuel GonzalesGFR-AF SAMOAN>60Normal>=60The [facility] HospitalComment on above:Performed By: #### INFLUAB #### [facility] [address] [address] [address] Manuel GonzalesGFR-NON AF SAMOAN>60Normal>=60The [facility] HospitalComment on above:Performed By: #### INFLUAB #### [facility] [address] [address] [address] Manuel SandhuGlobulin (S) [Mass/Vol]3.6 g/dLNormalThe [facility] HospitalComment on above:Performed By: #### INFLUAB #### [facility] [address] [address] [address] Manuel SandhuGlucose [Mass/Vol]79 mg/tLSnemkj89-118QutSelect Medical [facility] Comment on above:Performed By: #### INFLUAB #### [facility] [address] [address] [address] Manuel SandhuPotassium [Moles/Vol]3.5 mmol/LNormal3.5-5.1The [facility] Comment on above:Performed By: #### INFLUAB #### [facility] [address] [address] [address] Manuel SandhuProtein [Mass/Vol]7.4 g/dLNormal6.4-8.2The [facility] Comment on above:Performed By: #### INFLUAB #### [facility] [address] [address] [address] Manuel SandhuSodium [Moles/Vol]143 mmol/QGxmjce675-794Qhn [facility] Comment on above:Performed By: #### INFLUAB #### [facility] [address] [address] [address] Manuel SandhuUrea nitrogen [Mass/Vol]18.0 mg/dLNormal7.0-18.0The [facility] HospitalComment on above:Performed By: #### INFLUAB #### [facility] [address] [place] [address] Dr. Manuel Ramirez nitrogen/Creatinine [Mass ratio]26.1 mg/mgNormalThe [facility] HospitalComment on above:Performed By: #### INFLUAB #### [facility] [address] [place] [address] Dr. Manuel SandhuAMYLASEon 62-78-2472Gnkyvuv [Catalytic activity/Vol]60 U/LNormal 31-110The [facility] HospitalComment on above:Performed By: #### CMP, JENNIE, LIPA #### [facility] [address] [place] [address] Dr. Manuel Bruno AUTO DIFFon [id number] #0.1 103/ulNormal0.0-0.1The [facility] HospitalComment on above:Performed By: #### CMP, JENNIE, LIPA #### [facility] [address] [place] [address] Dr. Manuel SandhuBasophils/100 WBC (Bld)0.5 %Normal0.2-2.0The [facility] Comment on above:Performed By: #### CMP, JENNIE, LIPA #### [facility] [address] [place] [address] Dr. Manuel Anthony #0.3 103/ulNormal0.0-0.7The [facility] HospitalComascension providence hospital on above: Performed By: #### CMP, JENNIE, LIPA #### [facility] [address] [place] [address] Dr. Manuel Gonzalesosinophils/100 WBC (Bld)3.1 %Normal0.9-7.0The [facility] Comment on above:Performed By: #### CMP, JENNIE, LIPA #### [facility] [address] [place] [address] Dr. Manuel Gonzalesrythrocyte distribution width (RBC) [Ratio]13.4 %Kjqvpu53.0-15.0 The [facility] HospitalComment on above:Performed By: #### CMP, JENNIE, LIPA #### [facility] [address] [place] [address] Dr. Manuel SandhuHematocrit (Bld) [Volume fraction]39.0 %Newigu44.0-48.0The [facility] HospitalComment on above:Performed By: #### CMP, JENNIE, LIPA #### [facility] [address] [place] [address] Dr. Manuel SandhuHemoglobin (Bld) [Mass/Vol]12.8 g/hDIccujm56.0-16.0The [facility] HospitalComment on above:Performed By: #### CMP, JENNIE, LIPA #### [facility] [address] [place] [address] Dr. Manuel Fletcher #0.03 10e3/ulNormal0.00-0.03The [facility] HospitalComment on above:Performed By: #### CMP, JENNIE, LIPA #### [facility] [address] [place] [address] Dr. Manuel Fletcher %0.3 %Normal0.0-0.5The [facility] Memorial HospitalComment on above: Performed By: #### CMP, JENNIE, LIPA #### [facility] [address] [place] [address] Dr. Manuel Mac #2.8 103/ulNormal1.2-3.8The [facility] HospitalComment on above:Performed By: #### CMP, JENNIE, LIPA #### [facility] [address] [place] [address] Dr. Manuel Poolehocytes/100 WBC (Bld)29.9 %Gsxxkn74.5-60.0The [facility] HospitalComment on above:Performed By: #### CMP, JENNIE, LIPA #### [facility] [address] [place] [address] Dr. Manuel WilhelmUAL DIFF REQNONormalThe [facility] HospitalComment on above: Performed By: #### CMP, JENNIE, LIPA #### [facility] [address] [place] [address] Dr. Manuel Wells (RBC) [Entitic mass]32.2 ytFhenbd61.7-34.0The [facility] HospitalComment on above:Performed By: #### CMP, JENNIE, LIPA #### [facility] [address] [place] [address] Dr. Manuel Hu (RBC) [Mass/Vol]32.8 g/jFUknknb31.9-35.2The [facility] HospitalComment on above:Performed By: #### CMP, JENNIE, LIPA #### [facility] [address] [place] [address] Dr. Manuel SandhuINTEGRIS [facility] (RBC) [Entitic vol]98.0 qBHtijoz61.0-99.0The [facility] HospitalComment on above:Performed By: #### CMP, JENNIE, LIPA #### [facility] [address] [place] [address] Dr. Manuel Keith #0.7 103/ulNormal0.3-0.8The [facility] HospitalComment on above:Performed By: #### CMP, JENNIE, LIPA #### [facility] [address] [place] [address] Dr. Manuel Suarezocytes/100 WBC (Bld)7.7 %Normal1.7-12.0The [facility] Comment on above:Performed By: #### CMP, JENNIE, LIPA #### [facility] [address] [place] [address] Dr. Manuel Hurtado #5.5 103/ulNormal1.4-6.5The [facility] HospitalComment on above:Performed By: #### CMP, JENNIE, LIPA #### [facility] [address] [place] [address] Dr. Manuel Rebollarutrophils/100 WBC (Bld)58.5 %Mywhoz86.0-75.0The [facility] HospitalComment on above:Performed By: #### CMP, JENNIE, LIPA #### [facility] [address] [place] [address] Dr. Manuel Burtonlet mean volume (Bld) [Entitic vol]11.7 fLNormal9.5-13.5The [facility] HospitalComment on above:Performed By: #### JENNIE RAMOS, LIPA #### [facility] [address] [address] [address] Manuel SandhuPLT301 103/jcHlkjgt227-034Kxv [facility] HospitalComment on above: Performed By: #### RACHEL JENNIE, LIPA #### [facility] [address] [address] [address] Manuel SandhuRBC3.98 106/ulCritically low4.20-5.40The [facility] HospitalComment on above:Performed By: #### JENNIE RAMOS LIPA #### [facility] [address] [place] [address] Dr. Manuel SandhuWBC9.3 103/ulNormal4.0-11.0The [facility] HospitalComment on above: Performed By: #### JENNIE RAMOS LIPA #### [facility] [address] [place] [address] Dr. Manuel SandhuCT ABD/PELVIS WO CONon [id number] ABD/PELVIS WO CONEXAMINATION: CT ABD/PELVIS WO CON, 11/16/2021 6:41 PM [...] Electronically authenticated by: HARMONY HARRELL Date: 2021-11-16 19:55NormGe[facility] URINE PROFILEon [id number] Ql (U)NegativeNormal NEGATIVEUniversity Hospitals Parma [facility] on above:Performed By: #### CMP, JENNIE, LIPA #### [facility] [address] [address] [address] Manuel Eid (U)CLEARNormalCLEARSelect Medical [facility] Clinic Rehabilitation [facility], Edwin ShawComascension prov[facility] on above: Performed By: #### CMP, JENNIE, LIPA #### [facility] [address] [address] [address] Manuel Gautam (U)LT. YELLOWNormalYELLOWThe [facility]kton HospitalComment on above:Performed By: #### CMP, JENNIE, LIPA #### [facility] [address] [address] [address] Manuel Hernandez micrscopic examination will be performed if indicated. NormalThe [facility] HospitalComment on above:Performed By: #### CMP, JENNIE, LIPA #### [facility] [address] [address] [address] Manuel SandhuGlucose Ql (U)NegativeNormalNEGATIVESelect Medical [facility] Rehabilitation Hospital, Edwin ShawComment on above:Performed By: #### CMP, JENNIE, LIPA #### [facility] [address] [address] [address] Manuel SandhuHemoglobin Ql (U)NegativeNormalNEGSamaritan Hospital Comment on above:Performed By: #### CMP, JENNIE, LIPA #### [facility] [address] [address] [address] Manuel SandhuKetones Ql (U)NegativeNormalNEGATIVEDetwiler Memorial Hospitalment on above:Performed By: #### CMP, JENNIE, LIPA #### [facility] [address] [address] [address] Manuel SandhuLEUKOCYTESNegativeNormalNEGATIVEUniversity Hospitals Parma [facility] Center on above:Performed By: #### CMP, JENNIE, LIPA #### [facility] [address] [address] [address] Manuel SandhuNitrite Ql (U)NegativeNormalNEGATIVESelect Medical [facility] Clinic Rehabilitation Hospital, Edwin ShawComment on above:Performed By: #### CMP, JENNIE, LIPA #### [facility] [address] [address] [address] Manuel SandhupH (U)7.0 [pH]Normal5-9[facility] on above: Performed By: #### CMP, JENNIE, LIPA #### [facility] [address] [address] [address] Manuel SandhuSPEC GRAVITY<=1.322Tmxzkgmp2.005-<=1.025[facility] Comment on above:Performed By: #### CMP, JENNIE, LIPA #### [facility] [address] [place] [address] Dr. Manuel Tinsley PROTEINNegativeNormalNEGATIVE/ TRACEThe [facility] Comment on above:Performed By: #### CMP, JENNIE, LIPA #### [facility] [address] [place] [address] Dr. Manuel SandhuUR MICRO INDNOT INDICATEDNormalThe [facility] HospitalComment on above:Performed By: #### CMP, JENNIE, LIPA #### [facility] [address] [place] [address] Dr. Manuel SandhuUrobilinogen Qn (U)0.2 {Lucila'U}/dLNormal0.2 - 1.0The [facility] HospitalComment on above:Performed By: #### CMP, JENNIE, LIPA #### [facility] [address] [place] [address] Dr. Manuel SandhuLIPASEon [id number] [Catalytic activity/Vol]78.0 U/LNormal 23.0-300.0The [facility] HospitalComment on above:Performed By: #### CMP, JENNIE, LIPA #### [facility] [address] [place] [address] Dr. Manuel SandhuPREGNANCY URon [id number], QUALNegativeNormalNEGATIVEThe [facility] HospitalComment on above:Performed By: #### CMP, JENNIE, LIPA #### [facility] [address] [place] [address] Dr. Manuel SandhuPROF 14(COMP METB)on [id number] [Mass/Vol]4.1 g/dLNormal 3.5-5.0The [facility] HospitalComment on above:Performed By: #### CMP, JENNIE, LIPA #### [facility] [address] [place] [address] Dr. Manuel SandhuAlbumin/Globulin [Mass ratio]1.1 {ratio}NormalThe [facility] HospitalComment on above:Performed By: #### CMP, JENNIE, LIPA #### [facility] [address] [address] [address] Manuel Yu [Catalytic activity/Vol]102 U/ISetbhx37-049Oas [facility] HospitalComment on above:Performed By: #### CMP, JENNIE, LIPA #### [facility] [address] [address] [address] Manuel SaavedraT [Catalytic activity/Vol]39 U/LNormal9-52[facility] Comment on above:Performed By: #### CMP, JENNIE, LIPA #### [facility] [address] [address] [address] Manuel Torreson gap [Moles/Vol]11.5 mmol/LNormalThe [facility] Comment on above:Performed By: #### CMP, JENNIE, LIPA #### [facility] [address] [address] [address] Manuel SandhuAST [Catalytic activity/Vol]28 U/ACugvvi57-11Tjx [facility] HospitalComment on above:Performed By: #### CMP, JENNIE, LIPA #### [facility] [address] [address] [address] Manuel SandhuBilirubin [Mass/Vol]0.2 mg/dLNormal0.2-1.3TBluffton Hospital Comment on above:Performed By: #### CMP, JENNIE, LIPA #### [facility] [address] [address] [address] Manuel SandhuCalcium [Mass/Vol]9.1 mg/dLNormal8.4-10.2[facility] Comment on above:Performed By: #### CMP, JENNIE, LIPA #### [facility] [address] [address] [address] Manuel SandhuChloride [Moles/Vol]105 mmol/QXubwdb61-826Ewk [facility] Comment on above:Performed By: #### CMP, JENNIE, LIPA #### [facility] [address] [address] [address] Manuel SandhuCO2 [Moles/Vol]25.0 mmol/ZGfrwxx32.0-30.0The [facility] Comment on above:Performed By: #### CMP, JENNIE, LIPA #### [facility] [address] [address] [address] Manuel SandhuCreatinine [Mass/Vol]0.77 mg/dLNormal0.52-1.04The [facility] HospitalComment on above:Performed By: #### CMP, JENNIE, LIPA #### [facility] [address] [place] [address] Dr. Manuel GonzalesGFR-AF SAMOAN>60Normal>=60The [facility] HospitalComment on above:Performed By: #### CMP, JENNIE, LIPA #### [facility] [address] [place] [address] Dr. Manuel Jiménez-NON AF SAMOAN>60Normal>=60The [facility] HospitalComment on above:Performed By: #### CMP, JENNIE, LIPA #### [facility] [address] [place] [address] Dr. Manuel SandhuGlobulin (S) [Mass/Vol]3.8 g/dLNormalThe [facility] HospitalComment on above:Performed By: #### CMP, JENNIE, LIPA #### [facility] [address] [place] [address] Dr. Manuel SandhuGlucose [Mass/Vol]85 mg/cGRyykpq06-048LniSelect Medical [facility] Comment on above:Performed By: #### CMP, JENNIE, LIPA #### [facility] [address] [place] [address] Dr. Manuel SandhuPotassium [Moles/Vol]3.5 mmol/LNormal3.4-5.0The [facility] Comment on above:Performed By: #### CMP, JENNIE, LIPA #### [facility] [address] [place] [address] Dr. Manuel SandhuProtein [Mass/Vol]7.9 g/dLNormal6.1-8.2[facility] Comment on above:Performed By: #### CMP, JENNIE, LIPA #### [facility] [address] [place] [address] Dr. Yilan ChangSodium [Moles/Vol]138 mmol/ADbhijy155-748Nwi [facility] Comment on above:Performed By: #### JENNIE RAMOS LIPA #### [facility] [address] [address] [address] Manuel Ramirez nitrogen [Mass/Vol]18.0 mg/dLCritically high7.0-17.0[facility] ShawComment on above:Performed By: #### JENNIE RAMOS LIPA #### [facility] [address] [address] [address] Manuel Ramirez nitrogen/Creatinine [Mass ratio]23.4 mg/mgNormalThe [facility] HospitalComment on above:Performed By: #### JENNIE RAMOS LIPA #### [facility] [address] [address] [address] Manuel SandhuCT ABDOMEN PELVIS W IV CONTRAST Additional Contrast? OralOrdered By: Gamaliel Vickers on . Partially improved focal inflammatory process in the [...] 5. 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 Organs: There dilcia nonspecific 1.4 x 0.8 cm hypodensity at [...] noted thickened proximal jejunal loops are mildly im proved. Subjacent mesenteric stranding is partially improved as [...] for the patient's age. No pelvic lymphadenopathy. Peritoneum/Retroperitoneum: Abdominal aorta is normal in caliber. No retroperitoneal lymphadenopathy. Bones/Soft Tissues: There is mild stranding in the midline and left upper abdominal wall subcutaneous fat. No fluid collection or gas in the subcutaneous fat. No acute or suspicious osseous abnormality. Bilateral L5 parsdefects and mild grade 1 anterolisthesis at L5-S1 is unchanged.[employer] Work Phone: emaribell, [facility] Incoming Radiant Results From [employer] - 02/04/2021 4:32 PM EDT EXAMINATION: CT [...] for the patient's age. No pelvic lymphadenopathy. Peritoneum/Retroperitoneum: Abdominal aorta is normal in caliber. No [...] in the pelvis, which could be physiologic. [place] Phone: [facility] Phone: basic Metabolic Panel w/ Reflex to MGOrdered By: Ruiz Joel on [id number] gap [Moles/Vol]15 mmol/L9 - 17 mmol/LMercy Okairos Phone: calcium [Mass/Vol]8.5 mg/dLLow8.6 - 10.4 mg/dLAdams County HospitalNanoConversion Technologies Phone: chloride [Moles/Vol]107 mmol/L98 - 107 mmol/LMGIVVERy Okairos Phone: cO2 [Moles/Vol]16 mmol/LLow20 - 31 mmol/LMGIVVERy [place] Phone: creatinine [Mass/Vol]0.36 mg/dLLow0.50 - 0.90 mg/dL [place] Phone: GFR >60>60 mL/minAdams County HospitalNanoConversion Technologies Phone: GFR Non->60>60 mL/minAdams County HospitalNanoConversion Technologies Phone: GFR/1.73 sq M.predicted MDRD (S/P/Bld) [Vol rate/Area] [place] Phone: comment on above:Average GFR for 30-39 years old: 107 mL/min/1.73sq m Chronic Kidney Disease: <60 mL/min/1.73sq m Kidney failure: <15 mL/min/1.73sq m eGFR calculated using average adult body mass. Additional eGFR calculator available at: http://www.[employer].com/multiple_crcl_2012.htm GFR/1.73 sq M.predicted MDRD (S/P/Bld) [Vol rate/Area]NOT REPORTEDAdams County HospitalNanoConversion Technologies Phone: Glucose [Mass/Vol]79 mg/dL70 - 99 mg/dLAdams County HospitalNanoConversion Technologies Phone: Interpretation and review of laboratory results AbnormalAdams County HospitalNanoConversion Technologies Phone: potassium [Moles/Vol]3.7 mmol/L3.7 - 5.3 mmol/LMcleveland clinic foundationy [employer] Work Phone: sodium [Moles/Vol]138 mmol/L135 - 144 mmol/LMcleveland clinic foundationy [employer] Work Phone: Urea nitrogen (BldV) [Mass/Vol]2 mg/dLLow6 - 20 mg/dL [facility] Phone: Urea nitrogen/Creatinine (Bld) [Mass ratio]NOT REPORTEDAdams County HospitalToday Tix Work Phone: [facility]Today [facility] Work Phone: cBC WITH AUTO DIFFERENTIALOrdered By: Ruiz Joel on [id number] Eos #0.28[facility] HospitalNanoConversion Technologies Phone: absolute Immature Granulocyte0.06[facility] HospitalNano[facility] Technologies Phone: absolute Lymph #1.62MerN[employer]Conversion Technologies Phone: absolute Riley #1.46HighAdams County HospitalNanoConversion Technologies Phone: basophils (Bld) [#/Vol]0.04 10*3/uLAdams County HospitalNanoConversion Technologies Phone: basophils/100 WBC (Bld)0 %0 - 2 %[place] Phone: differential TypeNOT REPORTEDAdams County HospitalNanoConversion Technologies Phone: eosinophils/100 WBC (Bld)3 %1 - 4 %[place] Phone: Hematocrit (Bld) [Volume fraction]33.7 %Low36.3 - 47.1 %[place] Phone: Hemoglobin.gastrointestinal spec 1 Ql (Stl)10.3 g/dL Low11.9 - 15.1 g/dLAdams County HospitalNanoConversion Technologies Phone: Immature granulocytes/100 WBC (Bld)1 %Ggtp5XkelaNanoConversion Technologies Phone: Interpretation and review of laboratory results AbnormalAdams County HospitalNanoConversion Technologies Phone: Lymphocytes/100 WBC (Bld)14 %Low24 - 43 %[place] Phone: MCH (RBC) [Entitic mass]29.9 pg25.2 - 33.5 pgAdams County HospitalNanoConversion Technologies Phone: MCHC (RBC) [Mass/Vol]30.6 g/dL28.4 - 34.8 g/dLAdams County HospitalNanoConversion Technologies Phone: MCV (RBC) [Entitic vol]98.0 fL82.6 - 102.9 fLAdams County HospitalNanoConversion Technologies Phone: Monocytes/100 WBC (Bld)13 %High3 - 12 %[facility] Hospital[facility] Phone: NRBC Automated0.00.0 per 100 WBCAdams County HospitalNanoConversion Technologies Phone: platelet distribution width (Bld) [Ratio]13.4 %11.8 - 14.4 %[place] Phone: platelet EstimateNOT REPORTEDAdams County HospitalNanoConversion Technologies Phone: Platelet mean volume (Bld) [Entitic vol]11.6 fL8.1 - 13.5 fLAdams County HospitalNanoConversion Technologies Phone: [phone] (Bld) [#/Vol]392 10*3/uLCl[place]ico Phone: [phone] (Bld) [#/Vol]3.44 10*6/uLLow3.95 - 5.11 m/[employer]ie ([employer] HospitalN[facility] Technologies Phone: [phone] (Bld) [#/Vol]NOT REPORTEDAdams County HospitalNanoConversion Technologies Phone: [phone] neutrophils/100 WBC (Bld)69 %High36 - 65 % [place] Phone: Segs Absolute7.88[facility] HospitalN[facility] Phone: WBC (Bld) [#/Vol]11.3 10*3/uLAdams County HospitalNanoConversion Technologies Phone: WBC (Bld) [#/Vol]NOT REPORTEDAdams County HospitalNanoConversion Technologies Phone: [facility] Phone: basic Metabolic Panel w/ Reflex to MGOrdered By: Nicolasa Le on [id number] gap [Moles/Vol]17 mmol/L9 - 17 mmol/LMGIVVERy Okairos Phone: calcium [Mass/Vol]8.7 mg/dL8.6 - 10.4 mg/dLAdams County HospitalNanoConversion Technologies Phone: chloride [Moles/Vol]105 mmol/L98 - 107 mmol/LMGIVVERy [place] Phone: cO2 [Moles/Vol]15 mmol/LLow20 - 31 mmol/LMGIVVERy [place] Phone: creatinine [Mass/Vol]0.36 mg/dLLow0.50 - 0.90 mg/dL [place] Phone: GFR >60>60 mL/minAdams County HospitalNanoConversion Technologies Phone: GFR Non->60>60 mL/minAdams County HospitalNanoConversion Technologies Phone: GFR/1.73 sq M.predicted MDRD (S/P/Bld) [Vol rate/Area] [place] Phone: comment on above:Average GFR for 30-39 years old: 107 mL/min/1.73sq m Chronic Kidney Disease: <60 mL/min/1.73sq m Kidney failure: <15 mL/min/1.73sq m eGFR calculated using average adult body mass. Additional eGFR calculator available at: http://www.[employer]/multiple_crcl_2011.htm GFR/1.73 sq M.predicted MDRD (S/P/Bld) [Vol rate/Area]NOT REPORTEDAdams County HospitalNanoConversion Technologies Phone: Glucose [Mass/Vol]78 mg/dL70 - 99 mg/dLAdams County HospitalNanoConversion Technologies Phone: Interpretation and review of laboratory results AbnormalAdams County HospitalNanoConversion Technologies Phone: potassium [Moles/Vol]3.8 mmol/L3.7 - 5.3 mmol/LMcleveland clinic foundationy [employer]ii Work Phone: sodium [Moles/Vol]137 mmol/L135 - 144 mmol/LMcleveland clinic foundationy batterii Work Phone: Urea nitrogen (BldV) [Mass/Vol]3 mg/dLLow6 - 20 mg/dL [facility]Be[facility] Phone: Urea nitrogen/Creatinine (Bld) [Mass ratio]NOT REPORTEDAdams County HospitalNanoConversion Technologies Phone: [facility] Phone: cBC auto differentialOrdered By: Nicolasa Le on [phone] Eos #0.30[facility] HospitalNanoConversion Technologies Phone: absolute Immature Granulocyte0.15[facility] Phone: absolute Lymph #2.10[facility] Phone: absolute Riley #2.25HighAdams County HospitalNanoConversion Technologies Phone: basophils (Bld) [#/Vol]0.00 10*3/uLAdams County HospitalNanoConversion Technologies Phone: basophils/100 WBC (Bld)0 %0 - 2 %[place] Phone: differential TypeNOT REPORTEDAdams County HospitalNanoConversion Technologies Phone: eosinophils/100 WBC (Bld)2 %1 - 4 %[place] Phone: Hematocrit (Bld) [Volume fraction]35.7 %Low36.3 - 47.1 %[place] Phone: Hemoglobin.gastrointestinal spec 1 Ql (Stl)10.8 g/dL Low11.9 - 15.1 g/dLAdams County HospitalNanoConversion Technologies Phone: Immature granulocytes/100 WBC (Bld)1 %Kukw0DzbcvNanoConversion Technologies Phone: Interpretation and review of laboratory results AbnormalAdams County HospitalNanoConversion Technologies Phone: lymphocytes/100 WBC (Bld)14 %Low24 - 43 %[place] Phone: MCH (RBC) [Entitic mass]29.9 pg25.2 - 33.5 pgAdams County HospitalNanoConversion Technologies Phone: MCHC (RBC) [Mass/Vol]30.3 g/dL28.4 - 34.8 g/dLAdams County HospitalNanoConversion Technologies Phone: MCV (RBC) [Entitic vol]98.9 fL82.6 - 102.9 fLAdams County HospitalNanoConversion Technologies Phone: Monocytes/100 WBC (Bld)15 %High3 - 12 %[place] Phone: Morphology Celso (Bld) [Interp]NormalAdams County HospitalNanoConversion Technologies Phone: NRBC Automated0.00.0 per 100 WBCAdams County HospitalNanoConversion Technologies Phone: platelet distribution width (Bld) [Ratio]13.5 %11.8 - 14.4 %[place] Phone: platelet EstimateNOT REPORTEDAdams County HospitalNanoConversion Technologies Phone: platelet mean volume (Bld) [Entitic vol]11.6 fL8.1 - 13.5 fLAdams County HospitalNanoConversion Technologies Phone: platelets (Bld) [#/Vol]375 10*3/uLAdams County HospitalNanoConversion Technologies Phone: RBC (Bld) [#/Vol]3.61 10*6/uLLow3.95 - 5.11 m/uLTicketmaster Work Phone: RBC (Bld) [#/Vol]NOT REPORTEDAdams County HospitalToday Tix Work Phone: Zegmented neutrophils/100 WBC (Bld)68 %High36 - 65 % [place] Phone: segs Fhbqofio45.20HighTicketmaster Work Phone: WBC (Bld) [#/Vol]15.0 10*3/uLHighTicketmaster Work Phone: WBC (Bld) [#/Vol]NOT REPORTEDAdams County HospitalNanoConversion Technologies Phone: [facility] HospitalNano[facility] Technologies Phone: cBC Auto DifferentialOrdered By: David Nash on [id number] Eos #0.21[facility] HospitalNanoConversion Technologies Phone: absolute Immature Granulocyte0.04[facility] HospitalNanoCon[facility] Technologies Phone: absolute Lymph #1.88[facility] HospitalNanoConversion Technologies Phone: absolute Riley #1.43HighCl[place] Phone: basophils (Bld) [#/Vol]0.04 10*3/uLCl[place] Phone: basophils/100 WBC (Bld)0 %0 - 2 %[place] Phone: differential TypeNOT REPORTEDCl[place] Phone: eosinophils/100 WBC (Bld)2 %1 - 4 %[place] Phone: Hematocrit (Bld) [Volume fraction]36.2 %Low36.3 - 47.1 %[place] Phone: Hemoglobin.gastrointestinal spec 1 Ql (Stl)11.7 g/dL Low11.9 - 15.1 g/dLAdams County HospitalNanoConversion Technologies Phone: Immature granulocytes/100 WBC (Bld)0 %0Ad[facility] HospitalNanoConversion Technologies Phone: Interpretation and review of laboratory results AbnormalAdams County HospitalNanoConversion Technologies Phone: Lymphocytes/100 WBC (Bld)15 %Low24 - 43 %[place] Phone: MCH (RBC) [Entitic mass]30.3 pg25.2 - 33.5 pgAdams County HospitalNanoConversion Technologies Phone: MCHC (RBC) [Mass/Vol]32.3 g/dL28.4 - 34.8 g/dLAdams County HospitalNanoConversion Technologies Phone: MCV (RBC) [Entitic vol]93.8 fL82.6 - 102.9 fLAdams County HospitalNanoConversion Technologies Phone: Monocytes/100 WBC (Bld)12 %3 - 12 %[place] Phone: NRBC Automated0.00.0 per 100 WBCAdams County HospitalNanoConversion Technologies Phone: platelet distribution width (Bld) [Ratio]13.2 %11.8 - 14.4 %[place] Phone: platelet EstimateNOT REPORTEDAdams County HospitalNanoConversion Technologies Phone: Xlatelet mean volume (Bld) [Entitic vol]11.6 fL8.1 - 13.5 fLAdams County HospitalNanoConversion Technologies Phone: Platelets (Bld) [#/Vol]414 10*3/uLCl[place] Phone: RBC (Bld) [#/Vol]3.86 10*6/uLLow3.95 - 5.11 m/uLCl[place] Phone: RBC (Bld) [#/Vol]NOT REPORTEDCl[place] Phone: segmented neutrophils/100 WBC (Bld)71 %High36 - 65 % [place] Phone: segs Absolute8.75HighCl[place]ico Phone: WBC (Bld) [#/Vol]12.4 10*3/uLHighCl[place]ico Phone: WBC (Bld) [#/Vol]NOT REPORTEDAdams County HospitalNanoConversion Technologies Phone: [place] Phone: cT ABDOMEN PELVIS W IV CONTRAST Additional Contrast? OralOrdered By: David Nash on [id number] changes were noted from partial gastrectomy. Sigmoid [...] 1 anterolisthesis and marked decrease in disc height.[place] Phone: eXAMINATION: CT OF THE ABDOMEN AND PELVIS WITH [...] No lung base consolidation lung base mass orpleural effusions were noted. Organs: The liver, gallbladder, [...] No urinary bladder wall thickening was noted. Peritoneum/Retroperitoneum: No abdominalor pelvic lymphadenopathy were identified. Bones/Soft Tissues: Subcutaneous soft tissue inflammation was noted along the left anterolateral abdominal wall. Grade 1 anterolisthesis of L5 over S1 was noted secondary to bilateral pars interarticularis defects. Marked decrease in disc height was noted at the L5-S1 disc.[employer] Work Phone: emaribell, [facility] Incoming Radiant Results From [employer] - 01/30/2021 12:20 PM EDT EXAMINATION: CT [...] No urinary bladder wall thickening was noted. Peritoneum/Retroperitoneum: No abdominal or pelvic lymphadenopathy were identified. [...] anterolisthesis and marked decrease in disc height. [place] Phone: [place] Phone: comprehensive Metabolic Panel w/ Reflex to MGOrdered By: David Nash on [id number] [Mass/Vol]3.6 g/dL3.5 - 5.2 g/dLClodico Phone: albumin/Globulin [Mass ratio]1.0 {ratio}[place] Phone: aLP (Bld) [Catalytic activity/Vol]107 U/LHigh35 - 104 U/LMChewse Phone: aLT [Catalytic activity/Vol]33 U/L5 - 33 U/CENTERSONIC Phone: anion gap [Moles/Vol]17 mmol/L9 - 17 mmol/LMChewse Phone: aST [Catalytic activity/Vol]26 U/L<32[facility] Phone: bilirubin [Mass/Vol]0.25 mg/dLLow0.3 - 1.2 mg/dLCl[place]ico Phone: calcium [Mass/Vol]9.5 mg/dL8.6 - 10.4 mg/dLCl[place]ico Phone: chloride [Moles/Vol]104 mmol/L98 - 107 mmol/LMChewse Phone: cO2 [Moles/Vol]19 mmol/LLow20 - 31 mmol/LMcleveland clinic foundationBeatsy Phone: creatinine [Mass/Vol]0.47 mg/dLLow0.50 - 0.90 mg/dL [facility] Phone: Free PSA/Total PSA [Mass fraction]7.3 g/dL6.4 - 8.3 g/dLAdams County HospitalNanoConversion Technologies Phone: GFR >60>60 mL/minAdams County HospitalNanoConversion Technologies Phone: GFR Non->60>60 mL/minAdams County HospitalNanoConversion Technologies Phone: Glucose [Mass/Vol]79 mg/dL70 - 99 mg/dLAdams County HospitalNanoConversion Technologies Phone: Interpretation and review of laboratory results AbnormalAdams County HospitalNanoConversion Technologies Phone: potassium [Moles/Vol]3.8 mmol/L3.7 - 5.3 mmol/LMmercy health west hospital [place] Phone: sodium [Moles/Vol]140 mmol/L135 - 144 mmol/LMmercy health west hospital [place] Phone: Urea nitrogen (BldV) [Mass/Vol]5 mg/dLLow6 - 20 mg/dL [facility] Hospital[facility] Phone: Urea nitrogen/Creatinine (Bld) [Mass ratio]11[facility] Phone: HCG Qualitative, SerumOrdered By: Noreen Mckeon on [id number] QualNegativeNEGATIVEAdams County HospitalNanoConversion Technologies Phone: comment on above:Specimens with hCG levels near the threshold of the test (25 mIU/mL) may give a negative or indeterminate result. In such cases, another test should be performed with a new specimen in 48-72 hours. If early is suspected clinically in this setting, correlation with quantitative serum b-hCG level is suggested. [facility] has confirmed the use of plasma for this test. This has not been cleared or approved by the U.S. Food and Drug Administration. The FDA has determined that such clearance is not necessary. [place] Phone: laboratory - Chemistry and Chemistry - challenge Ordered By: David Nash on 10-78-6039DPJ/1.73 sq M.predicted MDRD (S/P/Bld) [Vol rate/Area][place] Phone: comment on above:Average GFR for 30-39 years old: 107 mL/min/1.73sq m Chronic Kidney Disease: <60 mL/min/1.73sq m Kidney failure: <15 mL/min/1.73sq m eGFR calculated using average adult body mass. Additional eGFR calculator available at: http://www.[employer]/multiple_crcl_2012.htm Stage 1: Some kidney damage normal GFR Stage 2: Mild kidney damage GFR 60-89 Stage 3: Moderate kidney damage GFR 30-59 Stage 4: Severe kidney damage GFR 15-29 Stage 5: Severe kidney damage GFR <15 ESRD - chronic treatment by dialysis or transplant Lactic AcidOrdered By: David Nash on [id number] [Moles/Vol]0.6 mmol/L0.5 - 2.2 mmol/LMercy batterii Work Phone: [facility] Work Phone: lipaseOrdered By: David Nash on [id number] [Catalytic activity/Vol]30 U/L13 - 60 U/LMercy batterii Work Phone: Microscopic UrinalysisOrdered By: David Nash on 01-30-2021-[place] Phone: amorphous, UANOT REPORTEDNoneMelouis stokes [facility] batterii Work Phone: bacteria, UATRACEAbnormalNoneMelouis stokes [facility] batter[employer] Work Phone: casts UANOT REPORTED/LPFMercy batterii Work Phone: crystals, UANOT REPORTEDNone /HPFMercy Health Work Phone: epithelial Cells UA2 TO 5[facility] Work Phone: Interpretation and review of laboratory results AbnormalMercy Health Work Phone: Mucus, UANOT REPORTEDNoneMercy Health Work Phone: Other Observations UANOT REPORTEDNOT REQ.[facility] Work Phone: rBC, UA0 TO 2[facility] Work Phone: renal Epithelial, UANOT REPORTED0 /HPFMercy Health Work Phone: Trichomonas, UANOT REPORTEDNoneMercy Health Work Phone: WBC, UA2 TO 5[facility] Work Phone: Yeast, UANOT REPORTEDNoneMercy Health Work Phone: [facility] Work Phone: No Panel InformationOrdered By: David Nash on [id number] batterii Work Phone: [phone]-UCGPrijeea By: Noreen Mckeon on [id number] Coag (Bld) [Relative time]1.1 {INR}[facility] batterii Work Phone: comment on above: Therapeutic Range: Moderate Anticoagulant Intensity: INR = 2.0-3.0 High Anticoagulant Intensity: INR = 2.5-3.5 PT Coag (PPP) [Time]11.4 sMcleveland clinic foundationy Health Work Phone: [facility] Work Phone: Urinalysis, reflex to microscopicOrdered By: David Nash on [id number] UrineSMALLAbnormalNEGATIVEGalion Hospital batterii Work Phone: color, UAYELLOWYELLOWGalion Hospital batterii Work Phone: Glucose, UrNegativeNEGATIVEGalion Hospital Health Work Phone: Interpretation and review of laboratory results AbnormalGalion Hospital batterii Work Phone: Ketones Ql (U)4+AbnormalNEGATIVEWexner Medical Center Work Phone: leukocyte esterase Test strip Ql (U)NegativeNEGATIVE [facility] Work Phone: Nitrite, UrineNegativeNEGATIVEGalion Hospital Health Work Phone: pH, UA5.5[facility] Work Phone: protein, UANegativeNEGATIVEGalion Hospital Health Work Phone: specific [place], UA<1.005LowGalion Hospital batterii Work Phone: Turbidity UACLEARCLEARMer Health Work Phone: Urinalysis CommentsNOT REPORTEDMer batterii Work Phone: Urine HgbNegativeNEGATIVEGalion Hospital Health Work Phone: Urobilinogen, UrineNormalNormalGalion Hospital Health Work Phone: [facility] Work Phone: basic Metabolic PanelOrdered By: Gamaliel Vickers on 38-13-3456Dturm gap [Moles/Vol]11 mmol/L9 - 17 mmol/LMcleveland clinic foundationy Health Work Phone: calcium [Mass/Vol]9.1 mg/dL8.6 - 10.4 mg/dLGalion Hospital batterii Work Phone: chloride [Moles/Vol]105 mmol/L98 - 107 mmol/LMercy Health Work Phone: cO2 [Moles/Vol]23 mmol/L20 - 31 mmol/LMercy Health Work Phone: creatinine [Mass/Vol]0.57 mg/dL0.50 - 0.90 mg/dLMerNanoConversion Technologies Phone: GFR >60>60 mL/minAdams County HospitalNanoConversion Technologies Phone: GFR Non->60>60 mL/minAdams County HospitalNanoConversion Technologies Phone: GFR/1.73 sq M.predicted MDRD (S/P/Bld) [Vol rate/Area] [place] Phone: comment on above:Average GFR for 30-39 years old: 107 mL/min/1.73sq m Chronic Kidney Disease: <60 mL/min/1.73sq m Kidney failure: <15 mL/min/1.73sq m eGFR calculated using average adult body mass. Additional eGFR calculator available at: http://www.[employer]/multiple_crcl_2012.htm GFR/1.73 sq M.predicted MDRD (S/P/Bld) [Vol rate/Area]NOT REPORTEDAdams County HospitalNanoConversion Technologies Phone: Glucose [Mass/Vol]106 mg/fRBvme82 - 99 mg/dLAdams County HospitalNanoCon[facility] Technologies Phone: Interpretation and review of laboratory results AbnormalAdams County HospitalNanoConversion Technologies Phone: potassium [Moles/Vol]3.7 mmol/L3.7 - 5.3 mmol/LMcleveland clinic foundationy [place] Phone: sodium [Moles/Vol]139 mmol/L135 - 144 mmol/LMercy [place] Phone: Urea nitrogen (BldV) [Mass/Vol]7 mg/dL6 - 20 mg/dL [place] Phone: Urea nitrogen/Creatinine (Bld) [Mass ratio]NOT REPORTEDAdams County HospitalNanoConversion Technologies Phone: cBCOrdered By: Gamaliel Vickers on 01-08-2021 Hematocrit (Bld) [Volume fraction]38.0 %36.3 - 47.1 %[place] Phone: Hemoglobin.gastrointestinal spec 1 Ql (Stl)12.2 g/dL 11.9 - 15.1 g/dLAdams County HospitalNanoConversion Technologies Phone: Interpretation and review of laboratory results AbnormalAdams County HospitalNanoCon[facility] Technologies Phone: MCH (RBC) [Entitic mass]30.4 pg25.2 - 33.5 pgAdams County HospitalNanoConversion Technologies Phone: MCHC (RBC) [Mass/Vol]32.1 g/dL28.4 - 34.8 g/dLAdams County HospitalNanoConversion Technologies Phone: MCV (RBC) [Entitic vol]94.8 fL82.6 - 102.9 fLAdams County HospitalNanoConversion Technologies Phone: NRBC Automated0.00.0 per 100 WBCAdams County HospitalNanoConversion Technologies Phone: platelet distribution width (Bld) [Ratio]13.5 %11.8 - 14.4 %[place] Phone: platelet mean volume (Bld) [Entitic vol]11.4 fL8.1 - 13.5 fLAdams County HospitalNanoConversion Technologies Phone: platelets (Bld) [#/Vol]304 10*3/[place] Phone: rBC (Bld) [#/Vol]4.01 10*6/uL3.95 - 5.11 m/[place] Phone: WBC (Bld) [#/Vol]18.0 10*3/uLEncompass Braintree Rehabilitation HospitalNanoConversion Technologies Phone: FL ESOPHAGRAMOrdered By: Gamaliel Vickers on 69-32-8085Zw evidence of postoperative leak.[place] Phone: eXAMINATION: SINGLE CONTRAST ESOPHAGRAM 01/08/2021 HISTORY: Reason for [...] abdominal KUB/radiographs to assess progression as clinically warranted.[place] Phone: emaribell, Mhjim Incoming Radiant Results From [employer] - 01/08/2021 12:29 PM EDT EXAMINATION: SINGLE [...] warranted. IMPRESSION: No evidence of postoperative leak. [place] Phone: basic Metabolic PanelOrdered By: Gamaliel Vickers on 66-87-6245Mfymw gap [Moles/Vol]10 mmol/L9 - 17 mmol/LMercy [place] Phone: calcium [Mass/Vol]8.8 mg/dL8.6 - 10.4 mg/dLCl[place]ico Phone: chloride [Moles/Vol]105 mmol/L98 - 107 mmol/LMercy [place] Phone: cO2 [Moles/Vol]20 mmol/L20 - 31 mmol/LMGIVVERy [place] Phone: creatinine [Mass/Vol]0.68 mg/dL0.50 - 0.90 mg/dLCl[place] Phone: GFR >60>60 mL/minCl[place]ico Phone: GFR Non->60>60 mL/minCl[place]ico Phone: GFR/1.73 sq M.predicted MDRD (S/P/Bld) [Vol rate/Area] [place] Phone: comment on above:Average GFR for 30-39 years old: 107 mL/min/1.73sq m Chronic Kidney Disease: <60 mL/min/1.73sq m Kidney failure: <15 mL/min/1.73sq m eGFR calculated using average adult body mass. Additional eGFR calculator available at: http://www.[employer]/multiple_crcl_2012.htm GFR/1.73 sq M.predicted MDRD (S/P/Bld) [Vol rate/Area]NOT REPORTEDAdams County HospitalNanoConversion Technologies Phone: Glucose [Mass/Vol]215 mg/eBPske73 - 99 mg/dLCl[place]ico Phone: Interpretation and review of laboratory results AbnormalAdams County HospitalNanoConversion Technologies Phone: potassium [Moles/Vol]4.2 mmol/L3.7 - 5.3 mmol/LMGIVVERy [place] Phone: sodium [Moles/Vol]135 mmol/L135 - 144 mmol/LMercy [place]ros Phone: Urea nitrogen (BldV) [Mass/Vol]14 mg/dL6 - 20 mg/dL [place] Phone: Urea nitrogen/Creatinine (Bld) [Mass ratio]NOT REPORTEDAdams County HospitalNanoConversion Technologies Phone: cBC without DiffOrdered By: Gamaliel Vickers on [id number] (Bld) [Volume fraction]38.3 %36.3 - 47.1 %[place] Phone: Hemoglobin.gastrointestinal spec 1 Ql (Stl)12.5 g/dL 11.9 - 15.1 g/dLCl[place]ico Phone: Interpretation and review of laboratory results AbnormalCl[place] Phone: MCH (RBC) [Entitic mass]30.9 pg25.2 - 33.5 pgAdams County HospitalNanoConversion Technologies Phone: MCHC (RBC) [Mass/Vol]32.6 g/dL28.4 - 34.8 g/dLAdams County HospitalNanoConversion Technologies Phone: MCV (RBC) [Entitic vol]94.8 fL82.6 - 102.9 fLAdams County HospitalNanoConversion Technologies Phone: NRBC Automated0.00.0 per 100 WBCAdams County HospitalNanoConversion Technologies Phone: platelet distribution width (Bld) [Ratio]13.4 %11.8 - 14.4 %[facility] HospitalBe[facility] Phone: platelet mean volume (Bld) [Entitic vol]11.2 fL8.1 - 13.5 fLAdams County HospitalNanoConversion Technologies Phone: platelets (Bld) [#/Vol]373 10*3/uLAdams County HospitalNanoConversion Technologies Phone: RBC (Bld) [#/Vol]4.04 10*6/uL3.95 - 5.11 m/[place] Phone: WBC (Bld) [#/Vol]24.9 10*3/uLEncompass Braintree Rehabilitation HospitalNanoConversion Technologies Phone: pOCT urine pregnancyOrdered By: Gamaliel Vickers on 10-26-0842Ohoz HCG ( test) Ql (U)NegativeNEGATIVEAdams County HospitalNanoConversion Technologies Phone: comment on above:Specimens with hCG levels near the threshold of the test (25 mIU/mL) may give a negative or indeterminate result. In such cases, another test should be performed with a new specimen in 48-72 hours. If early is suspected clinically in this setting, correlation with quantitative serum b-hCG level is suggested. UOYP-XsG-1wj [id number]-CoV-2 (COVID-19) RNA JOSÉ MIGUEL+probe Ql (Unsp spec)Normal [facility] North HospitalComment on above:Performed By: #### COVID #### [facility] [address], [place] [id number] Sourcing Intern: Wei Reyna MD [facility] [address] [place], [place] [id number] Sourcing Intern: NOBLE Naylor-CoV-2 (COVID-19) RNA JOSÉ MIGUEL+probe Ql (Unsp spec)Not detectedNormalNOTDEGerman HospitalComment on above:Result Comment: The specimen is NEGATIVE for SARS-CoV-2, the novel coronavirus associated with COVID-19. A negative result does not rule out COVID-19. [employer] SARS-CoV-2 for use on the [employer] is a real-time RT-PCR test intended [...] this assay. Fact sheet for Healthcare Providers: https://www.fda.gov/media/179694/download Fact sheet for Patients: https://www.fda.gov/media/440228/download METHODOLOGY: RT-PCRPerformed By: #### COVID #### [facility] [address], [place] [id number] Sourcing Intern: Wei Reyna MD [facility] [address] [place] [address] Sourcing Intern: KYLEE NaylorCoV-2on [id number]-CoV-2 (COVID-19) RNA JOSÉ MIGUEL+probe Ql (Unsp spec).NASOPHARYNGEAL SWABNormalMerCascade Medical Center Comment on above:Performed By: #### COVID #### [facility] [address] [place], [place] [id number] Sourcing Intern: Wei Reyna MD [facility] [address] [place], [place] [id number] Sourcing Intern: Shant Naylorotine, BloodOrdered [place]: [place] [address]-VG-Nukczhwy<2ng/mLGalion Hospital batterii Work Phone: cotinine<2ng/mLGalion Hospital batterii Work Phone: Nicotine<2ng/mLGalion Hospital batterii Work Phone: comment on above:(NOTE) Consistent with abstinence from nicotine-containing products for [...] developed and its performance characteristics determined by [employer]. It has not been cleared or approved by the US Food and Drug Administration. This test was performed in a CLIA certified laboratory and is intended for clinical purposes. Performed By: [employer] [address] [place] [id number] Lead Relay Tester: Brissa Bonilla MD EKG 12 LeadOrdered By: Gamaliel Vickers on 37-44-8056Jmvqzs Hpuf96THPCjrwt Health Work Phone: p Mcvr81eshhhxeDiqky batterii Work Phone: p-R Dazkyean322 [employer] Work Phone: Q-T Ouctqtwu327 [employer] Work Phone: QRS Qjxafibs34 [employer] Work Phone: QTc Calculation (Bazett)447 [facility] Clinton[facility] Work Phone: O Qoma6fuaajrzSpadu Health Work Phone: T Okmu6lijgboxDnlhk Health Work Phone: Ventricular Iudk91QUMPxtxz Health Work Phone: Normal sinus rhythm Normal ECG No previous ECGs availableAdams County HospitalNanoConversion Technologies Phone: edi, Mhpn Incoming Ekg Results From [employer] - 12/25/2020 12:47 PM EDT Formatting of this note mightbe different from the original. Normal sinus rhythm Normal ECG No previous ECGs availableAdams County HospitalNanoConversion Technologies Phone: aPTTOrdered By: Gamaliel Vickers on 18-38-9058gGBW Coag (Bld) [Time]23.1 [place] Phone: comment on above: IV Heparin Therapy Range: 48.6-77.8 Basic Metabolic PanelOrdered By: Gamaliel Vickers on 42-58-9814Rqkgi gap [Moles/Vol]10 mmol/L9 - 17 mmol/LMJobSync Work Phone: calcium [Mass/Vol]9.4 mg/dL8.6 - 10.4 mg/dLAdams County HospitalNanoConversion Technologies Phone: chloride [Moles/Vol]106 mmol/L98 - 107 mmol/LMJobSync Work Phone: cO2 [Moles/Vol]23 mmol/L20 - 31 mmol/LMJobSync Work Phone: creatinine [Mass/Vol]0.56 mg/dL0.50 - 0.90 mg/dLCl[place] Phone: GFR >60>60 mL/minAdams County HospitalNanoConversion Technologies Phone: GFR Non->60>60 mL/minAdams County HospitalNanoConversion Technologies Phone: GFR/1.73 sq M.predicted MDRD (S/P/Bld) [Vol rate/Area] [place] Phone: comment on above:Average GFR for 30-39 years old: 107 mL/min/1.73sq m Chronic Kidney Disease: <60 mL/min/1.73sq m Kidney failure: <15 mL/min/1.73sq m eGFR calculated using average adult body mass. Additional eGFR calculator available at: http://www.[employer]/multiple_crcl_2012.htm GFR/1.73 sq M.predicted MDRD (S/P/Bld) [Vol rate/Area]NOT REPORTEDAdams County HospitalNanoConversion Technologies Phone: Glucose [Mass/Vol]86 mg/dL70 - 99 mg/dLAdams County HospitalNanoConversion Technologies Phone: potassium [Moles/Vol]3.8 mmol/L3.7 - 5.3 mmol/LMChewse Phone: sodium [Moles/Vol]139 mmol/L135 - 144 mmol/LMGIVVERy [place] Phone: Urea nitrogen (BldV) [Mass/Vol]12 mg/dL6 - 20 mg/dL [place] Phone: Urea nitrogen/Creatinine (Bld) [Mass ratio]NOT REPORTEDAdams County HospitalNanoConversion Technologies Phone: cBCOrdered By: Gamaliel Vickers on 12-24-2020 Hematocrit (Bld) [Volume fraction]41.2 %36.3 - 47.1 %[place] Phone: Hemoglobin.gastrointestinal spec 1 Ql (Stl)13.4 g/dL 11.9 - 15.1 g/dLCl[place]ico Phone: MCH (RBC) [Entitic mass]30.5 pg25.2 - 33.5 pgGalion Hospital [place]ai[place] Phone: MCHC (RBC) [Mass/Vol]32.5 g/dL28.4 - 34.8 g/dLGalion Hospital [place] Phone: MCV (RBC) [Entitic vol]93.6 fL82.6 - 102.9 fLAdams County HospitalNanoConversion Technologies Phone: NRBC Automated0.00.0 per 100 WBCGalion Hospital Ok[place] Phone: platelet distribution width (Bld) [Ratio]13.2 %11.8 - 14.4 %[facility] [place] Phone: platelet mean volume (Bld) [Entitic vol]10.7 fL8.1 - 13.5 fLAdams County HospitalNanoConversion Technologies Phone: platelets (Bld) [#/Vol]391 10*3/BenedictNanoConversion Technologies Phone: RBC (Bld) [#/Vol]4.40 10*6/uL3.95 - 5.11 m/BenedictNanoConversion Technologies Phone: WBC (Bld) [#/Vol]8.5 10*3/BenedictNanoConversion Technologies Phone: [phone]-JEEEbwqlnu By: Gamaliel Vickers on 12-24-2020 INR Coag (Bld) [Relative time]0.9 {INR}[facility] [place] Phone: comment on above: Therapeutic Range: Moderate Anticoagulant Intensity: INR = 2.0-3.0 High Anticoagulant Intensity: INR = 2.5-3.5 PT Coag (PPP) [Time]10 sMmercy health west hospital [place] Phone: XR CHEST (2 VW)on [id number] acute cardiopulmonary findingsAdams County HospitalNanoConversion Technologies Phone: eXAMINATION: TWO XRAY VIEWS OF THE CHEST 12/24/2020 11:24 am COMPARISON: None. HISTORY: ORDERING SYSTEM PROVIDED HISTORY: preop gastric bypass Tian En Y TECHNOLOGIST PROVIDED HISTORY: preop gastric bypass Tian En Y Reason for Exam: no chest complaints FINDINGS: Normal cardiopericardial silhouette There are no significant mediastinal, pleural, parenchymal or osseous findingsAdams County HospitalNanoConversion Technologies Phone: edi, [facility] Incoming Radiant Results From [employer] - 12/24/2020 11:30 AM EDT EXAMINATION: TWO XRAY VIEWS OF THE CHEST 12/24/2020 11:24 am COMPARISON: None. HISTORY: ORDERING SYSTEM PROVIDED HISTORY: preop gastric bypass Tian [employer] TECHNOLOGIST PROVIDED HISTORY: preop gastric bypass Tian En Y Reason for Exam: no chest complaints FINDINGS: Normal cardiopericardial silhouette There are no significant mediastinal, pleural, parenchymal or osseous findings IMPRESSION: No acute cardiopulmonary findings [facility] Phone: XR CHEST (2 VW)Ordered By: Gamaliel Vickers on 19-94-8339Mt acute cardiopulmonary findingsAdams County HospitalNanoConversion Technologies Phone: eXAMINATION: TWO XRAY VIEWS OF THE CHEST 12/24/2020 11:24 am COMPARISON: None. HISTORY: ORDERING SYSTEM PROVIDED HISTORY: preop gastric bypass Tian [employer] Y TECHNOLOGIST PROVIDED HISTORY: preop gastric bypass Tian En Y Reason for Exam: no chest complaints FINDINGS: Normal cardiopericardial silhouette There are no significant mediastinal, pleural, parenchymal or osseous findingsAdams County HospitalNanoConversion Technologies Phone: edi, [facility] Incoming Radiant Results From [employer] - 12/24/2020 11:30 AM EDT EXAMINATION: TWO XRAY VIEWS OF THE CHEST 12/24/2020 11:24 am COMPARISON: None. HISTORY: ORDERING SYSTEM PROVIDED HISTORY: preop gastric bypass Tian [employer] Y TECHNOLOGIST PROVIDED HISTORY: preop gastric bypass Tian En Y Reason for Exam: no chest complaints FINDINGS: Normal cardiopericardial silhouette There are no significant mediastinal, pleural, parenchymal or osseous findings IMPRESSION: No acute cardiopulmonary findings [place] Phone: FL UGI W AIR CONTRASTon 09-00-5919Mexpenwporfu significant spontaneous GE reflux. Otherwise unremarkable double-contrast upper GI andesophagram.[place] Phone: eXAMINATION: DOUBLE CONTRAST UPPER GI SERIES WITH ATTENTION TO THE ESOPHAGUS 11/01/2020 TECHNIQUE: Double contrast upper GI series was performed with barium and air contrast. FLUOROSCOPY DOSE AND TYPEOR TIME AND EXPOSURES: 1.8 minute fluoro time, 63.75 mGy 18 cine series COMPARISON: None HISTORY: ORDERING SYSTEM PROVIDED HISTORY: Gastroesophageal reflux disease with esophagitis without hemorrhageTECHNOLOGIST PROVIDED HISTORY: GERD FINDINGS: The esophagus is of normal caliber and demonstrates normal motility. There are no mucosal abnormalities seen. Swallowing function appears normal. The benigno roesophageal junction is normal. No hiatal hernia. However, intermittent significant spontaneous GEreflux is noted. The stomach is normal in appearance with no evidence for mass present. The duodenal bulb and sweep are normal.[place] Phone: edi, [facility] Incoming Radiant Results From [employer] - 11/01/2020 5:21 PM EST EXAMINATION: DOUBLE [...] Otherwise unremarkable double-contrast upper GI and esophagram. [place] Phone: [phone]-00oc [id number]-CoV-2MMcCullough-Hyde Memorial Hospital, [place] ZGPA-CeD-7Cos DetectedNot [facility], KYComment on above: The specimen is NEGATIVE for SARS-CoV-2, the novel coronavirus associated with COVID-19. A negative result does not rule out COVID-19. Heide SARS-CoV-2 for use on the [employer] Systems is a real-time RT-PCR test intended [...] this assay. Fact sheet for Healthcare Providers: https://www.fda.gov/media/403406/download Fact sheet for Patients: https://www.fda.gov/media/486803/download METHODOLOGY: RT-PCR SARS-CoV-2, RapidMercy Health St. [facility].NASOPHARYNGEAL SWABSycamore Medical Center, [place] Vital Signs Date TimeVital SignValuePerforming [id number] 08:35-3270XaV0% (BldA) [Mass fraction]98 %Jennie Durand DO Work Phone: [phone] [place], [place] 9720210-16-2025 12:40-0400 Body mwgsqsrwcul77.3 [degF]Jennie Durand DO Work Phone: [phone] [place], [place] 9720210-16-2025 12:40-0400 Diastolic blood faqduiyo91 mm[Hg]Jennie Durand DO Work Phone: [phone] [place], [place] 9720210-16-2025 12:40-0400 Heart rate60 /minJennie Durand DO Work Phone: [phone] [place], [place] 9720210-16-2025 12:40-0400 Respiratory rate18 /minJennie Ladarius [employer] Work Phone: [phone] [place], [place] 9720210-16-2025 12:40-0400 SaO2% (BldA) [Mass fraction]100 %Jennie Durand DO Work Phone: [phone] [place], [place] 9720210-16-2025 12:40-0400 Systolic blood ucwqvfpu954 mm[Hg]Jennie Durand DO Work Phone: [phone]10-16-2025 12:38-0400 Body rcsnnu075.18 cmAlouis Durand DO Work Phone: [phone]10-16-2025 12:38-0400 Body kgJennie Hameede DO Work Phone: [phone] [place], [place] 1405110-16-2025 11:08-0400 Body lxezir161.2 cmFredric Itzkowitz DO Work Phone: 1(980)[address] [place], [place] 1287410-16-2025 11:08-0400Body mass index (BMI) [Ratio]30.54 kg/h5Oawekyz Itzkowitz DO Work Phone: 1(386)[address] [place], [place] 1287410-16-2025 11:08-0400Body edanvo64.45 kgFredric Itzkowitz DO Work Phone: 1(751)[address] [place], [place] 1287410-16-2025 11:08-0400Diastolic blood cvfudkdx27 mm[Hg]Aaliyah Itzkowitz DO Work Phone: 9(409)[facility]42[facility] RoadAhotiovuop45-35-1248 11:08-0400Systolic blood mm[Hg]Aaliyah Itzkowitz DO Work Phone: 1(077)[address] [place], [place] 1287409-16-2025 10:55-0400Diastolic blood qeckytec70 mm[Hg]Jennie Durand DO Work Phone: 6(069)[address]09-16-2025 10:55-0400 Heart rate66 /minJennie Durand DO Work Phone: 4(339)[address]09-16-2025 10:55-0400 Respiratory rate16 /minJennie Durand DO Work Phone: 1(210)918-[address] [place], [place] 9720209-16-2025 10:55-0400 SaO2% (BldA) [Mass fraction]99 %Jennie Durand DO Work Phone: 1(603)[address]09-16-2025 10:55-0400 Systolic blood rseleorh674 mm[Hg]Jennie Durand DO Work Phone: 1(751)[address]09-16-2025 10:18-0400 Body wuwydlmqegm70.9 [degF]Jennie Durand DO Work Phone: 1(500)[address] [place], [place] 1405109-16-2025 09:53-0400 Inhaled oxygen flow rate8 L/minJennie Durand DO Work Phone: 1(315)[address] [place], [place] 1405109-16-2025 07:55-0400 Body jmicfp465.18 cmAlouis Durand DO Work Phone: 1(717)[address] [place], [place] 1405109-16-2025 07:55-0400 Body kgJennie Durand DO Work Phone: 1(118)[address] [place], [place] 1405107-31-2025 09:41-0400 Body vnzoso566.2 cmFredric Itzkowitz DO Work Phone: [facility] RoadSqagbbaofg53-58-6570 09:41-0400Body mass index (BMI) [Ratio]30.54 kg/d3Tjeevbt Itzkowitz DO Work Phone: [facility] RoadBfhxnpzedz50-71-2609 09:41-0400Body vynmlq97.45 kgFredric Itzkowitz DO Work Phone: [facility] RoadTwxlfoicye59-14-4146 09:41-0400Diastolic blood qatmnpsh79 mm[Hg]Aaliyah Itzkowitz DO Work Phone: [facility] RoadNjihzqverv57-67-5330 09:41-0400Systolic blood wusjmxgj093 mm[Hg]Aaliyah Itzkowitz DO Work Phone: [facility] RoadWwwiurnych96-54-3486 10:45-0400Body mass index (BMI) [Ratio]32.44 kg/u3KquxquvShazia Elise [employer]UST[employer] PORT DIRECTOR Work Phone: [facility] RoadQnmhwxukcl74-39-8411 10:45-0400Body temperature 96.1 [degF]Shazia Elise [employer] PORT DIRECTOR Work Phone: [facility] RoadByfymawagk78-09-0857 10:45-0400Body vpyhel06.17 kgShazia Elise [employer] PORT DIRECTOR Work Phone: [facility] RoadFyaoximsbs42-21-2623 10:45-0400Diastolic blood blxoefgf73 mm[Hg]Shazia Elise [employer] PORT DIRECTOR Work Phone: [facility] RoadEgckagbbbd12-81-0459 10:45-0400Heart rate95 /min Shazia Elise [employer] DIRECTOR Work Phone: [facility] RoadNrawrsubgb83-54-2315 10:45-7792DiR9% (BldA) [Mass fraction]98 %Shazia Elise [employer] PORT DIRECTOR Work Phone: [facility] RoadDdgvmjbwvj87-47-2490 10:45-0400Systolic blood mm[Hg]Shazia Elise [employer] DIRECTOR Work Phone: [facility] RoadBzbcfbdcla47-75-7206 10:12-0400Diastolic blood jkvdesph70 mm[Hg][place] Kate [facility]05-16-2025 10:12-0400Heart rate86 /minAmanda Kate [facility]05-16-2025 10:12-0400Mean blood ikyrrvkz439 mm[Hg]Orlando Kate [facility]05-16-2025 10:12-0400 Respiratory rate14 /minAmanda Kate [facility]05-16-2025 10:12-0400 Systolic blood mm[Hg]Orlando Kate [facility]05-13-2025 09:59-0400Heart rate76 /minBradfcher Mayers [facility]05-13-2025 09:59-6051FwY5% (BldA) [Mass fraction]100 %Babar Mayers [facility]05-13-2025 09:59-0400 Diastolic blood vrzlfapg97 mm[Hg]Babar Mayers [facility]05-13-2025 09:59-0400Mean blood vvryglhg435 mm[Hg]Babar Talib [facility]05-13-2025 09:59-0400 Systolic blood zultyjgu165 mm[Hg]Babar Mayers [address] [place], [place] 3002505-13-2025 09:54-0400 Diastolic blood tmnfgtye16 mm[Hg]Babar Mayers [address] [place], [place] 3002505-13-2025 09:54-0400Heart rate79 /minBrajoo Talib [address] [place], [place] 3002505-13-2025 09:54-0400 Respiratory rate14 /minBrajoo Mayers [address] [place], [place] 3002505-13-2025 09:54-5016QhS1% (BldA) [Mass fraction]100 %Babar Mayers [facility]05-13-2025 09:54-0400 Systolic blood ctxkivvk025 mm[Hg]Babar Mayers [address] [place], [place] 3002505-13-2025 08:35-0400Heart rate79 /minBrajoo Mayers [address] [place], [place] 3002505-13-2025 08:35-1132DzH8% (BldA) [Mass fraction]99 %Babar Mayers [address] [place], [place] 3002505-13-2025 08:34-0400Body oydbadmkyow72.88 [degF]Babar Mayers [address]05-13-2025 08:34-0400 Diastolic blood nvxcizgv77 mm[Hg]Babar Mayers [address] [place], [place] 3002505-13-2025 08:34-0400Mean blood okpzizjw707 mm[Hg]Babar Mayers [facility]05-13-2025 08:34-0400 Systolic blood ymhpcmdq626 mm[Hg]Babar Mayers [address] [place], [place] 3002505-13-2025 08:32-0400 Respiratory rate16 /minBrajoo Mayers [address]05-02-2025 08:15-0400 Diastolic blood rsgahxyg87 mm[Hg]Orlando Kate [address] [place], [place] 3002505-02-2025 08:15-0400Heart rate79 /minAmanda Kate [address] [place], [place] 3002505-02-2025 08:15-0400Mean blood cucxymex958 mm[Hg]Orlando Kate [address] [place], [place] 3002505-02-2025 08:15-0400 Respiratory rate16 /minAmanda Kate [facility]05-02-2025 08:15-0400 Systolic blood mm[Hg]Orlando Kate [address] [place], [place] 3002504-04-2025 10:31-0400Body mdcroe219.18 [facility]04-04-2025 10:31-0400Body weight 83.91 kgMer[facility]03-17-2025 10:23-0400Heart rate64 /min Babar Mayers [address] [place], [place] 3002503-17-2025 10:23-9704WhT2% (BldA) [Mass fraction]100 %Babar Mayers [facility]03-17-2025 10:23-0400 Diastolic blood mm[Hg]Eckert Talib [facility]03-17-2025 10:23-0400Mean blood mrhzclvy924 mm[Hg]Babar Talib [facility]03-17-2025 10:23-0400 Systolic blood cmhtqvun318 mm[Hg]Eckert Talib [facility]03-17-2025 10:23-0400 Respiratory rate16 /minBradford Talib [facility]03-17-2025 10:19-0400 Diastolic blood alqqgrpp53 mm[Hg]Babar Mayers [facility]03-17-2025 10:19-0400Heart rate81 /minBradford Talib [facility]03-17-2025 10:19-1468HwO6% (BldA) [Mass fraction]97 %Eckert Talib [facility]03-17-2025 10:19-0400 Systolic blood pnogmloh318 mm[Hg]Babar Talib [facility]03-17-2025 09:10-0400Heart rate77 /minBradford Talib [facility]03-17-2025 09:10-4217FrC4% (BldA) [Mass fraction]99 %Babar Mayers [facility]03-17-2025 09:09-0400 Diastolic blood vyfokusz05 mm[Hg]Babar Mayers [facility]03-17-2025 09:09-0400Mean blood mm[Hg]Babar Mayers [facility]03-17-2025 09:09-0400 Systolic blood dfkdxwky111 mm[Hg]Babar Mayers [address] [place], [place] 2512303-17-2025 09:09-0400Body mlsbatlhuui34.06 [degF]Babar Mayers [facility]03-17-2025 09:06-0400 Respiratory rate20 /minBrajoo Talib [address] [place], [place] 3002503-04-2025 13:35-0500 Diastolic blood bgfyxiza79 mm[Hg]Oralndo Kate [address] [place], [place] 3002503-04-2025 13:35-0500Heart rate90 /minAmanda Kate [address] [place], [place] 3002503-04-2025 13:35-0500Mean blood mm[Hg]Orlando Kate [address] [place], [place] 3002503-04-2025 13:35-0500 Respiratory rate14 /minAmanda Kate [address] [place], [place] 3002503-04-2025 13:35-0500 Systolic blood tmqaojjf612 mm[Hg]Orlando Ktae [address] [place], [place] 3002502-04-2025 08:08-0500Body nklgcqjciuw02.24 [degF][facility]02-04-2025 08:08-0500Diastolic blood uujpexda64 mm[Hg][facility]02-04-2025 08:08-0500Heart rate86 /[facility]02-04-2025 08:08-0500Respiratory rate16 /[facility]02-04-2025 08:08-1034VrX8% (BldA) [Mass fraction]100 %[facility]02-04-2025 08:08-0500Systolic blood pressure 123 mm[Hg][facility]01-08-2025 11:17-0500Body mass index (BMI) [Ratio]30.12 kg/f3Gfnzknqwbfj Suzie DO Work Phone: [facility] RoadMmlnmvnbee29-87-8363 11:17-0500Body fnpmay05.64 kgChristopher Suzie DO Work Phone: [facility] RoadHcuthownxs35-30-3466 11:17-0500Diastolic blood lahhsksg58 mm[Hg]Corby Larsen DO Work Phone: [facility] RoadLuxqqgfegs77-06-7602 11:17-0500Heart rate80 /min Christsamanta Larsen DO Work Phone: [facility] RoadJsgtibqzrt06-76-2837 11:17-7712BnW1% (BldA) [Mass fraction]98 %[facility] Centersamanta Larsen DO Work Phone: [facility] RoadGauoghsept19-66-9240 11:17-0500Systolic blood mm[Hg]Corby Larsen DO Work Phone: [facility] RoadYuphjnqocn13-43-8675 16:36-0500Diastolic blood eppajyyu64 mm[Hg][facility]01-02-2025 16:36-0500Heart rate55 /[facility]01-02-2025 16:36-0500Respiratory rate23 /[facility]01-02-2025 16:36-5923RuT3% (BldA) [Mass fraction]100 %[facility]01-02-2025 16:36-0500 Systolic blood tmsnjdok635 mm[Hg][facility]01-02-2025 13:29-0500Body .18 cmMer[facility]01-02-2025 13:29-0500Body mggauczsrzh25 [degF][facility]01-02-2025 13:29-0500Body vlkbfe18 kgMer[facility] Hospital12-31-2024 09:40-0500 Body .[address] [place], [place] 0740512-31-2024 09:40-0500 Body mass index (BMI) [Ratio]29.44 kg/m2Ely [address] [place] [address] 09-13-2024 09:40-0500Body cpmyuz09.[address] [place] [address] 09-13-2024 09:40-0500Diastolic blood wrgshuic26 mm[Hg]Clarita 2[facility]12-31-2024 09:40-0500Systolic blood mm[Hg][address]11-25-2024 15:29-0500Diastolic blood mm[Hg]Aleah Howard MD Work Phone: 1(581)916-[address] [place], [place] 0358211-25-2024 15:29-0500 Systolic blood iswdrlcc148 mm[Hg]Aleah Howard MD Work Phone: 1(596)324-[address] [place], [place] 0358211-25-2024 15:28-0500 Body yojyls255.2 cmAleah Howard MD Work Phone: 1(150)873-[address] [place], [place] 0358211-25-2024 15:28-0500 Body mass index (BMI) [Ratio]29.44 kg/s2AbdultAleah Howard MD Work Phone: 5(370)011-[address] [place], [place] 0358211-25-2024 15:28-0500 Body wfxunk91.28 kgAleah Howard MD Work Phone: 3(908)003-[address] [place], [place] 0358211-25-2024 15:28-0500 Heart rate75 /minAleah Howard MD Work Phone: 5(612)836-[address] [place], [place] 0358211-11-2024 15:08-0500 Body mass index (BMI) [Ratio]28.94 kg/g4RzbicTevin Carson DO Work Phone: [facility]11-11-2024 15:08-0500Body rujwie33.8 kgTevin Carson DO Work Phone: [facility]11-11-2024 15:08-0500Diastolic blood upnxfobq03 mm[Hg]Tevin Carson DO Work Phone: [facility]11-11-2024 15:08-0500Heart rate67 /min Tevin Carson DO Work Phone: [facility]11-11-2024 15:08-0396XnL6% (BldA) [Mass fraction]100 %Tevin Carson DO Work Phone: [facility]11-11-2024 15:08-0500Systolic blood wildtnmi608 mm[Hg]Tevin Carson DO Work Phone: [facility]10-21-2024 11:01-0400Body ovablm428.2 cmFatuma Tyler [employer] SENSOR SPECIALIST.HEAD TURNING MACHINE OPERATOR Work Phone: [phone]10-21-2024 11:01-0400Body mass index (BMI) [Ratio]28.98 kg/v2TcwhhfzrmFatuma Tyler [employer] S[employer]OR SPECIALIST.HEAD TURNING MACHINE OPERATOR Work Phone: [phone]10-21-2024 11:01-0400Body nutlus92.92 kgFatuma Tyler [employer] SENSOR SPECIALIST.HEAD TURNING MACHINE OPERATOR Work Phone: [phone]10-18-2024 11:01-0400Body etmufm884.2 cmTevin Carson DO Work Phone: [phone]10-18-2024 11:01-0400Body mass index (BMI) [Ratio]29.8 kg/l2OqewcTevin Carson DO Work Phone: [phone]10-18-2024 11:01-0400Body .3 kgTevin Carson DO Work Phone: [phone]10-18-2024 11:01-0400Diastolic blood cxphidqn29 mm[Hg]Tevin Carson DO Work Phone: [facility]10-18-2024 11:01-0400Heart rate72 /min Tevin Carson DO Work Phone: [facility]10-18-2024 11:01-5182CyT6% (BldA) [Mass fraction]99 %Tevin Carson DO Work Phone: [phone]10-18-2024 11:01-0400Systolic blood rwigkyqs930 mm[Hg]Tevin Carson DO Work Phone: [facility]06-25-2024 15:02-0400Diastolic blood qfjzsuar80 mm[Hg]Alexis Shukla [address] [place], [place] 5500306-25-2024 15:02-0400Heart rate65 /minAlexis Shukla [address] [place], [place] 5500306-25-2024 15:02-0400Mean blood genswahp95 mm[Hg]Alexis Shukla [address] [place], [place] 5500306-25-2024 15:02-2782YmP8% (BldA) [Mass fraction]100 %Alexis Shukla [address] [place], [place] 5500306-25-2024 15:02-0400 Systolic blood mvtgodfs305 mm[Hg]Alexis Shukla [address]06-25-2024 14:00-3778FtQ0% (BldA) [Mass fraction]99 %Alexis Shukla [address]06-25-2024 13:37-0400Body qcpkztyhozv45.42 [degF]Alexis Shukla [address]06-25-2024 13:37-0400 Diastolic blood mm[Hg]Alexis Shukla [address] [place], [place] 5500306-25-2024 13:37-0400Heart rate70 /Manisha Shukla [address] [place], [place] 5500306-25-2024 13:37-0400 Respiratory rate18 /minAlexis Shukla [address] [place], [place] 5500306-25-2024 13:37-8466ZnG4% (BldA) [Mass fraction]100 %Alexis Shukla [address] [place], [place] 5500306-25-2024 13:37-0400 Systolic blood mm[Hg]Alexis Shukla [facility]06-25-2024 13:14-0400Body wyhmtupuxje30.24 [degF]Alexis Shukla [facility]06-25-2024 13:14-0400 Diastolic blood lfglvjru73 mm[Hg]Alexis Shukla [address] [place], [place] 5500306-25-2024 13:14-0400Heart rate67 /minAlexis Shukla [address] [place], [place] 5500306-25-2024 13:14-0400 Respiratory rate16 /minAlexis Shukla [address] [place], [place] 5500306-25-2024 13:14-0400 Systolic blood vharnbuk337 mm[Hg]Alexis Shukla [address] [place], [place] 5500306-25-2024 08:06-0400Body pyleeq292.2 cmTrevokeshav Baires DO Work Phone: [facility]06-25-2024 08:06-0400Body mass index (BMI) [Ratio]30.9 kg/g2Oalqly Baires DO Work Phone: [facility]06-25-2024 08:06-0400Body fmoajj27.5 kgTrevor Baires DO Work Phone: [facility]06-25-2024 08:06-0400Diastolic blood jahuxldr80 mm[Hg]Elia Baires DO Work Phone: [facility]06-25-2024 08:06-0400Heart rate82 /min Elia Baires DO Work Phone: [facility]06-25-2024 08:06-5713DvS8% (BldA) [Mass fraction]100 %Elia Baires DO Work Phone: [facility]06-25-2024 08:06-0400Systolic blood junbgybb778 mm[Hg]Elia Baires DO Work Phone: [facility]04-22-2024 09:28-040Body .2 cmTrevokeshav Baires DO Work Phone: [facility]04-22-2024 09:28-040Body mass index (BMI) [Ratio]31.96 kg/q3Ylwadnkeshav Baires DO Work Phone: [facility]04-22-2024 09:Body leypyd63.55 kgTrevokeshav Baires DO Work Phone: [facility]04-22-2024 09:28-040Diastolic blood qsmyupcg01 mm[Hg]Elaikeshav Baires DO Work Phone: [facility]04-22-2024 09:28-040Heart rate92 /min Eliakeshav Baires DO Work Phone: [facility]04-22-2024 09:6897ExI4% (BldA) [Mass fraction]97 %Eliakeshav Baires DO Work Phone: [facility]04-22-2024 09:-040Systolic blood gnitaccg328 mm[Hg]Eliakeshav Baires DO Work Phone: [facility]04-18-2024 11:17-0400Heart rate76 /min DO Jennie Durand Work Phone: 1(714)135-[address] [place], [place] 9720204-18-2024 11:14-0400 Body izdblnlpmuk97.2 [degF]DO Jennie Durand Work Phone: 1(211)493-[address] [place], [place] 9720204-18-2024 11:14-0400 Diastolic blood dayrirsb08 mm[Hg]DO Jennie Durand Work Phone: 1(583)678-[address] [place], [place] 9720204-18-2024 11:14-0400 Respiratory rate18 /minDO Jennie Durand Work Phone: 1(863)575-[address] [place], [place] 9720204-18-2024 11:14-0400 SaO2% (BldA) [Mass fraction]97 %DO Jennie Durand Work Phone: 1(571)403-[address] [place], [place] 9720204-18-2024 11:14-0400 Systolic blood ozvxlggk992 mm[Hg]DO Jennie Durand Work Phone: 1(642)[address] [place], [place] 1405104-18-2024 11:13-0400 Body .18 cmDO Jennie Durand Work Phone: 1(876)[address] [place], [place] 1405104-18-2024 11:13-0400 Body ecsmux31.35 kgDO Jennie Durand Work Phone: 1(683)[address] [place], [place] 1405104-11-2024 11:58-0400 Body zkydsj274.18 cmDO Jennie Durand Work Phone: 1(522)[address] [place], [place] 1405104-11-2024 11:58-0400 Body kyxmzupaiuy03.8 [degF]DO Jennie Durand Work Phone: 1(693)[address] [place], [place] 1405104-11-2024 11:58-0400 Body kgDO Jennie Durand Work Phone: 1(321)[address] [place], [place] 1405104-11-2024 11:58-0400 Diastolic blood tuaeelec08 mm[Hg]DO Jennie Durand Work Phone: 1(680)[address] [place], [place] 1405104-11-2024 11:58-0400 Heart rate85 /minDO Jennie Durand Work Phone: 1(830)[address] [place], [place] 1405104-11-2024 11:58-0400 Respiratory rate15 /minDO Jennie Durand Work Phone: 1(007)[address] [place], [place] 1405104-11-2024 11:58-0400 SaO2% (BldA) [Mass fraction]100 %DO Jennie Durand Work Phone: 1(791)[address] [place], [place] 1405104-11-2024 11:58-0400 Systolic blood qdsuxovg691 mm[Hg]DO Jennie Durand Work Phone: 1(704)[address] [place], [place] 1405103-28-2024 12:35-0400 Heart rate70 /minDO Jennie Durand Work Phone: 1(261)[address] [place], [place] 1405103-28-2024 12:35-0400 Respiratory rate16 /minDO Jennie Durand Work Phone: 1(070)[address]03-28-2024 12:35-0400 SaO2% (BldA) [Mass fraction]98 %DO Jennie Durand Work Phone: 1(095)[address]03-28-2024 12:08-0400 Body xuiofm419.18 cmDO Jennie Durand Work Phone: 1(359)[address]03-28-2024 12:08-0400 Body kltsbfhubyv70 [degF]DO Jennie Durand Work Phone: 1(016)[address]03-28-2024 12:08-0400 Body ovfddj83.8 kgDO Jennie Durand Work Phone: 1(438)[address]03-28-2024 12:08-0400 Diastolic blood cdhxdjiz30 mm[Hg]DO Jennie Durand Work Phone: 1(772)[address]03-28-2024 12:08-0400 Systolic blood jvsxfjid583 mm[Hg]DO Jennie Durand Work Phone: 1(447)[address]01-05-2024 08:49-0500 Diastolic blood omcypdmp12 mm[Hg]Gamaliel Vickers DO Work Phone: [facility] [employer] CENTERVILLESefas InnovationOUAYNB11-15-0794 08:49-0500Heart rate58 /minGamaliel Vickers DO Work Phone: [facility] EGBFXB74-71-4889 08:49-0500 Respiratory rate18 /minGamaliel Vickers DO Work Phone: [facility] AZERFK91-32-3221 08:49-8133YlT6% (BldA) [Mass fraction]100 %Gamaliel Vickers DO Work Phone: [facility] [employer] [facility] KDUASV28-37-6075 08:49-0500Systolic blood npzlpfyc010 mm[Hg]Gamaliel Vickers DO Work Phone: [facility] NORTHRWBEJX27-90-9819 08:24-0500Body qvyrirodijq41.11 [degF]Gamaliel Vickers DO Work Phone: [facility]01-05-2024 07:23-0500Body hhspru954.2 cmGamaliel Vickers DO Work Phone: [facility]01-05-2024 07:23-0500Body mass index (BMI) [Ratio]31.79 kg/q7QthmpifGamaliel Vickers DO Work Phone: [facility]01-05-2024 07:23-0500Body ieimch70.08 kgGamaliel Vickers DO Work Phone: [facility]12-02-2023 13:37-0500Diastolic blood ahvblctz70 mm[Hg]DO Jennie Hameede Work Phone: 1(676)[address] [place], [place] 1405112-02-2023 13:37-0500 Heart rate70 /minDO Jennie Hameede Work Phone: 1(471)[address] [place], [place] 1405112-02-2023 13:37-0500 Respiratory rate18 /minDO Jennie Durand Work Phone: 1(378)[address] [place], [place] 1405112-02-2023 13:37-0500 SaO2% (BldA) [Mass fraction]99 %DO Jennie Durand Work Phone: 1(080)[address] [place], [place] 1405112-02-2023 13:37-0500 Systolic blood xpguebfj351 mm[Hg]DO Jennie Durand Work Phone: 1(443)[address] [place], [place] 1405112-02-2023 11:29-0500 Body aeskfb341.18 cmDO Jennie Durand Work Phone: 1(074)[address] [place], [place] 1405112-02-2023 11:29-0500 Body vdgruuqdjmp34.2 [degF]DO Jennie Durand Work Phone: 1(430)[address] [place], [place] 1405112-02-2023 11:29-0500 Body zvssig12.18 kgDO Jennie Durand Work Phone: 1(258)[address] [place], [place] 1405112-01-2023 16:43-0500 Body dlpweh066.18 cmDO Jennie Durand Work Phone: 1(730)[address] [place], [place] 1405112-01-2023 16:43-0500 Body tecngidagja13.2 [degF]DO Jennie Durand Work Phone: 1(209)[address] [place], [place] 1405112-01-2023 16:43-0500 Body .6 kgDO Jennie Hameede Work Phone: 1(400)[address] [place], [place] 1405112-01-2023 16:43-0500 Diastolic blood xolarvxl09 mm[Hg]DO Jennie Durand Work Phone: 1(588)[address] [place], [place] 1405112-01-2023 16:43-0500 Heart rate80 /Damion Durand Work Phone: 1(243)[address] [place], [place] 1405112-01-2023 16:43-0500 Respiratory rate18 /minDO Jennie Durand Work Phone: 1(982)[address] [place], [place] 1405112-01-2023 16:43-0500 SaO2% (BldA) [Mass fraction]98 %DO Jennie Durand Work Phone: 4(325)[address] [place], [place] 1405112-01-2023 16:43-0500 Systolic blood pjrrqsio608 mm[Hg]DO Jennie Durand Work Phone: 1(857)[address] [place], [place] 1405111-30-2023 11:15-0500 Body xhsguk145.18 cmImad ETHERA Other [employer] Other 11-30-2023 11:15-0500Body mass index (BMI) [Ratio] 30.54 kg/m2Imad Varoliiad Other [facility] Other 11-30-2023 11:15-0500Body sualze49.45 kgImad Varoliiad Other [employer] Other 11-30-2023 11:15-0500Diastolic blood dzwxpvfa05 mm[Hg] Imad Asaad Other [employer] Other 11-30-2023 11:15-0500Systolic blood mm[Hg] Imad Asaad Other [employer] Other 10-25-2023 12:05-0400Body recjji538.18 cmPamela Tegan Other [employer] Other 10-25-2023 12:05-0400Body mass index (BMI) [Ratio] 30.22 kg/v8Qjbjkn Tegan Other [employer] Other 10-25-2023 12:05-0400Body eofoxqhmpzi95 [degF]Ania Tegan Other [employer] Other 10-25-2023 12:05-0400Body fiknqr71.54 kgPanavjot Javed Other [employer] Other 10-25-2023 12:05-0400Diastolic blood jhkdopla72 mm[Hg] Ania Tegan Other [employer] Other 10-25-2023 12:05-0400Respiratory rate19 /minPasaulfallon Tegan Other [employer] Other 10-25-2023 12:05-2115FaV9% (BldA) [Mass fraction]98 % Ania Javed Other [employer] Other 10-25-2023 12:05-0400Systolic blood awjokxtz562 mm[Hg] Ania Javed Other [employer] Other 10-20-2023 11:05-0400Diastolic blood ofexlqrr94 mm[Hg] DO Jennie Durand Work Phone: [phone] [place], [place] 9720210-20-2023 11:05-0400 Heart rate78 /minDO Jennie Durand Work Phone: [phone]10-20-2023 11:05-0400 Respiratory rate16 /minDO Jennie Durand Work Phone: [phone])[address]10-20-2023 11:05-0400 SaO2% (BldA) [Mass fraction]99 %DO Jennie Durand Work Phone: [phone]10-20-2023 11:05-0400 Systolic blood mm[Hg]DO Jennie Durand Work Phone: 1(158)[address]10-20-2023 10:10-0400 Body ctwihl361.18 cmDO Jennie Durand Work Phone: [phone])[address]10-20-2023 10:10-0400 Body lynpkkuybui15.7 [degF]DO Jennie Durand Work Phone: [phone])[address]10-20-2023 10:10-0400 Body wecvvn60.9 kgDO Jennie Durand Work Phone: 1(257)[address]10-19-2023 14:06-0400 Body jghnbujuaeb17.06 [degF]Bakari [facility]10-19-2023 14:06-0400 Diastolic blood pcnosgss50 mm[Hg]Bakari [facility]10-19-2023 14:06-0400Heart rate91 /Vic [facility]10-19-2023 14:06-0400 Respiratory rate18 /minKevin Henrik [address]10-19-2023 14:06-7840ZjX8% (BldA) [Mass fraction]100 %Bakari Chester [address] [place], [place] 9228510-19-2023 14:06-0400 Systolic blood eiugfhwf513 mm[Hg]Bakari Chester [address] [place], [place] 9228505-04-2023 13:30-0400 Diastolic blood zimylbsy47 mm[Hg]Bakari Chester [address] [place], [place] 9228505-04-2023 13:30-0400Heart rate71 /minBakari Chester [address] [place], [place] 9228505-04-2023 13:30-0400Mean blood mm[Hg]Bakari Chester [address] [place], [place] 9228505-04-2023 13:30-0400 Respiratory rate18 /minBakari Chester [address]05-04-2023 13:30-2016JaI8% (BldA) [Mass fraction]100 %Bakari Chester [address]05-04-2023 13:30-0400 Systolic blood qoqgjiba645 mm[Hg]Bakari Chester [address]05-04-2023 12:30-0400 Diastolic blood foeximfi54 mm[Hg]Bakari Chester [address] [place], [place] 5500305-04-2023 12:30-0400Heart rate78 /minBakari Chester [address] [place], [place] 5500305-04-2023 12:30-0400Mean blood mm[Hg]Bakari Chester [address] [place], [place] 9228505-04-2023 12:30-0400 Respiratory rate18 /minBakari Chester [facility]05-04-2023 12:30-2627KvD1% (BldA) [Mass fraction]100 %Bakari Henrik [facility]05-04-2023 12:30-0400 Systolic blood pqumlpco014 mm[Hg]Bakari Chester [address] [place], [place] 5500305-04-2023 10:50-0400Body ygrjxzyswzg10.42 [degF]Bakarisamuel Chester [address] [place], [place] 5500305-04-2023 10:50-0400 Diastolic blood irbobhjh96 mm[Hg]Bakari Chester [address] [place], [place] 5500305-04-2023 10:50-0400Heart rate77 /Vic Chester [address] [place], [place] 5500305-04-2023 10:50-0400Mean blood pqgnspez37 mm[Hg]Bakari Chester [facility]05-04-2023 10:50-0400 Respiratory rate17 /Vic Chester [address] [place], [place] 5500305-04-2023 10:50-4849SwG3% (BldA) [Mass fraction]99 %Bakari Chester [facility]05-04-2023 10:50-0400 Systolic blood uhbrnuax795 mm[Hg]Bakari Chester [facility]03-24-2023 13:20-0400 Diastolic blood mm[Hg]Gal Das [facility]03-24-2023 13:20-0400Heart rate58 /Reed Das [facility]03-24-2023 13:20-0400 Respiratory rate18 /minGal Das [facility]03-24-2023 13:20-8343TcW7% (BldA) [Mass fraction]100 %Gal Das [facility]03-24-2023 13:20-0400 Systolic blood tgyvbjqw390 mm[Hg]Gal Das [facility]03-24-2023 12:00-0400Heart rate54 /minJajunaid Das [facility]03-24-2023 12:00-2866EuY8% (BldA) [Mass fraction]100 %Gal Das [facility]03-24-2023 11:59-0400 Diastolic blood vyylgbgg54 mm[Hg]Gal Das [facility]03-24-2023 11:59-0400Mean blood eqjugbru92 mm[Hg]Gal Das [facility]03-24-2023 11:59-0400 Systolic blood qwhgoetf469 mm[Hg]Gal Das [facility]03-24-2023 11:53-0400Body iukoddaiidx34.52 [degF]Gal Das [facility]03-24-2023 11:53-0400 Diastolic blood ngtietjj55 mm[Hg]Gal Das [facility]03-24-2023 11:53-0400Heart rate59 /minJames Thiago [facility]03-24-2023 11:53-0400Mean blood bjawegxv52 mm[Hg]Gal Das [facility]03-24-2023 11:53-0400 Respiratory rate14 /minJames Thiago [facility]03-24-2023 11:53-9497XaA0% (BldA) [Mass fraction]100 %Gal Das [facility]03-24-2023 11:53-0400 Systolic blood pjhefyxa918 mm[Hg]Gal Das [facility]03-24-2023 11:40-0400Mean blood ffwrfhyt28 mm[Hg]Gal Das [facility]03-24-2023 11:40-0400 Respiratory rate18 /minGal Das [facility]03-24-2023 11:30-0400Mean blood qzglpuox95 mm[Hg]Gal Das [facility]03-24-2023 11:15-0400Body hubpicdntpz59.34 [degF]Gal Das [facility]03-24-2023 11:10-0400 Respiratory rate18 /Reed Das [facility]03-24-2023 11:05-0400 Respiratory rate21 /Reed Das [facility]03-24-2023 11:00-0400 Respiratory rate11 /minJajunaid Das [facility]03-24-2023 07:15-0400Mean blood sipvszci20 mm[Hg]Gal Das [facility]03-24-2023 07:15-0400Body dmgnkqcslal31.88 [degF]Gal Das [facility]03-24-2023 07:15-0400Heart rate72 /minGal Das [facility]03-24-2023 07:12-0400Mean blood imgkxius00 mm[Hg]Gal Das [facility]03-10-2023 10:44-0500 Diastolic blood zeurkpjb44 mm[Hg]Gal Das [facility]03-10-2023 10:44-0500Heart rate67 /minJames Thiago [facility]03-10-2023 10:44-0500Mean blood wxscymjf12 mm[Hg]Gal Das [facility]03-10-2023 10:44-0500 Systolic blood rplrnelz567 mm[Hg]Gal Das [facility]03-10-2023 10:44-0500Heart rate71 /minJames Thiago [facility]03-10-2023 10:44-2709DaB6% (BldA) [Mass fraction]100 %Gal Das [facility]03-10-2023 10:43-0500 Diastolic blood juhhhfnq38 mm[Hg]Gal Das [facility]03-10-2023 10:43-0500Mean blood mfjksmyx36 mm[Hg]Gal Das [facility]03-10-2023 10:43-0500 Systolic blood eqhujvxk327 mm[Hg]Gal Das [address] [place], [place] 5485803-10-2023 10:43-0500 Respiratory rate16 /minJames Thiago [facility]03-09-2023 08:09-0500Body .2 Kay Alvarez MD Work Phone: [facility]7119 08:09-0500Body fjjeel29.73 kgEileen Alvarez MD Work Phone: [place] Mvzmge85-48-1727 08:09-0500Diastolic blood qqrrsunr18 mm[Hg]Eileen Alvarez MD Work Phone: [place] Bzstbf81-34-8528 08:09-0500Heart rate67 /min Eileen Alvarez MD Work Phone: [place] Hskgfi73-82-4389 08:09-4435XmG6% (BldA) [Mass fraction]100 %Eileen Alvarez MD Work Phone: [place] Meryfp72-19-5346 08:09-0500Systolic blood mm[Hg]Eileen Alvarez MD Work Phone: [phone] Obtawg44-74-9532 12:57-0500Blood Pressure LocationNakia Charisse 292-3875Miwxxp-[facility]xwjaCl[facility]02-20-2023 12:57-0500Body hghlwygzymy22.24 [degF]Nakia Mcqueen 572-3066Tmxhaf-YxuxxCl[facility] Hospital02-20-2023 12:57-0500Diastolic blood lkacsjel44 mm[Hg]Nakia Mcqueen 355-6346Wsttlu-BmajeClinton Memorial Hospital02-20-2023 12:57-0500Heart rate85 /minNaika Charisse 534-0873Qcbyuk-JlmpvClinton Memorial Hospital02-20-2023 12:57-4614OdB3% (BldA) [Mass fraction]98 %Nakia Mcqueen 339-5391Uhxalk-ZvfozClinton Memorial Hospital02-20-2023 12:57-0500Systolic blood mm[Hg]Nakia Mcqueen 734-4535Cahmdl-ShhraClinton Memorial Hospital01-11-2023 06:57-0500Blood Pressure LocationAimee Walker 005-7014Mmygpt-CixnjClinton [facility] Hospital01-11-2023 06:57-0500Body fnhywjlvqfe46.24 [degF]Aimee Walker 834-5920Fpgjwb-HfvirClinton Memorial Hospital01-11-2023 06:57-0500Diastolic blood ipzbucwb01 mm[Hg]Aimee Walker 223-9832Fowryg-Qhmvn[address] [place], [place] 9403001-11-2023 06:57-0500Heart rate77 /minAimee Walker 239-0943Nphauo-Adgmj[address] [place], [place] 4081601-11-2023 06:57-6751ZuM8% (BldA) [Mass fraction]99 %Aimee Walker 334-8997Gnwlfw-Qwvbv[address] [place], [place] 4081601-11-2023 06:57-0500Systolic blood pxvabwpj759 mm[Hg]Aimee Walker 730-7186Krykxc-Jaisp[address] [place], [place] 4081612-09-2022 10:31-0500[facility] 10:31-0500Body kxlypbwfzan72.06 [degF][facility]12-09-2022 10:31-0500Diastolic blood jdixiwrh51 mm[Hg][facility] 08-22-2022 10:31-0500Heart rate95 /[facility]Christ[facility]12-09-2022 10:31-2971UgR7% (BldA) [Mass fraction]98 %[facility]12-09-2022 10:31-0500Systolic blood yobydrfz235 mm[Hg][facility] 08-19-2022 09:45-0500Diastolic blood tokybssg09 mm[Hg]DO Jennie Durand Work Phone: [facility]12-06-2022 09:45-0500 Heart rate82 /Damion Durand Work Phone: 1([phone] [place], [place] 9720212-06-2022 09:45-0500 Respiratory rate16 /Damion Durand Work Phone: 1(046)[address]12-06-2022 09:45-0500 SaO2% (BldA) [Mass fraction]95 %DO Jennie Durand Work Phone: 1(573)[address]12-06-2022 09:45-0500 Systolic blood tbwigjas489 mm[Hg]DO Jennie Durand Work Phone: 1(911)[address]12-06-2022 07:41-0500 Body .18 cmDO Jennie Durand Work Phone: 1(860)[address] [place], [place] 1405112-06-2022 07:41-0500 Body omjxll38.6 kgDO Jennie Durand Work Phone: 1(094)[address] [place], [place] 1405112-05-2022 17:26-0500 Body aaqgunqvhmb28.06 [degF]Alexis Shukla [address] [place], [place] 5500312-05-2022 17:26-0500 Diastolic blood oeopuysq17 mm[Hg]Alexis Shukla [address] [place], [place] 5500312-05-2022 17:26-0500Heart rate84 /Manisha Shukla [address] [place], [place] 5500312-05-2022 17:26-0500 Respiratory rate18 /minAlexis Shukla [address] [place], [place] 5500312-05-2022 17:26-0596MmA1% (BldA) [Mass fraction]98 %Alexis Shukla [address] [place], [place] 5500312-05-2022 17:26-0500 Systolic blood mm[Hg]Alexis Shukla [address] [place], [place] 5500311-29-2022 15:50-0500Body owxpcluntke91.9 [degF]DO Jennie Durand Work Phone: 1(246)[address]11-29-2022 15:50-0500 Diastolic blood hojvkwyt83 mm[Hg]DO Jennie Durand Work Phone: 1(915)[address]11-29-2022 15:50-0500 Heart rate64 /minDO Jennie Durand Work Phone: 1(547)[address]11-29-2022 15:50-0500 Respiratory rate20 /minDO Jennie Durand Work Phone: 1(324)[address] [place], [place] 1405111-29-2022 15:50-0500 SaO2% (BldA) [Mass fraction]100 %DO Jennie Durand Work Phone: 1(264)[address] [place], [place] 1405111-29-2022 15:50-0500 Systolic blood mbjtbnuf769 mm[Hg]DO Jennie Durand Work Phone: 1(837)[address] [place], [place] 1405111-29-2022 11:00-0500 Body .18 cmDO Jennie Durand Work Phone: 1(282)[address] [place], [place] 1405111-29-2022 06:00-0500 Body hwtyno38.1 kgDO Jennie Durand Work Phone: 1(790)[address]11-25-2022 10:30-0500 Diastolic blood pmhywigc39 mm[Hg]Bakari Chester [facility]11-25-2022 10:30-0500Heart rate58 /minBakari Chester [facility]11-25-2022 10:30-0500Mean blood jhgwfnei56 mm[Hg]Bakari Chester [facility]11-25-2022 10:30-0500 Respiratory rate20 /minBakari Chester [facility]11-25-2022 10:30-6991KiI6% (BldA) [Mass fraction]100 %Bakari Chester [address] [place], [place] 5500311-25-2022 10:30-0500 Systolic blood afjxkxmf967 mm[Hg]Bakari Chester [address] [place], [place] 5500311-25-2022 10:00-0500 Diastolic blood koljpeos09 mm[Hg]Bakari Chester [address] [place], [place] 5500311-25-2022 10:00-0500Heart rate64 /minBakari Chester [address] [place], [place] 5500311-25-2022 10:00-0500Mean blood vfgfumcq69 mm[Hg]Bakari Chester [address] [place], [place] 5500311-25-2022 10:00-0500 Systolic blood rylpnpoz416 mm[Hg]Bakari Chester [address]11-25-2022 09:13-0500gluc 98 mg/dLBakari Chester [address] [place], [place] 5500311-25-2022 09:13-0500gluc Bakari Chester [address] [place], [place] 5500311-25-2022 09:06-0500Body .7 [degF]Bakari Chester [address] [place], [place] 5500311-25-2022 09:06-0500 Diastolic blood hjospuyd46 mm[Hg]Bakari Chester [address] [place], [place] 5500311-25-2022 09:06-0500Heart rate79 /minBakari Chester [address] [place], [place] 5500311-25-2022 09:06-0500 Respiratory rate18 /minBakari Chester [address] [place], [place] 5500311-25-2022 09:06-0216PgB8% (BldA) [Mass fraction]100 %Bakari Chester [facility]11-25-2022 09:06-0500 Systolic blood mdqmcywn923 mm[Hg]Bakari Chester [facility]11-07-2022 10:50-0500Blood Pressure LocationAimee Walker 499-5768Fsmglu-QhjhhClinton Memorial Hospital11-07-2022 10:50-0500Body oirvuehvuji06.7 [degF]Aimee Aaron 989-3427Ywhauw-ZgbtaClinton Memorial Hospital11-07-2022 10:50-0500Diastolic blood mm[Hg]Aimee Walker 084-2939Akgexb-ObnpzClinton Memorial Hospital11-07-2022 10:50-0500Heart rate74 /minAimee Walker 398-2463Anwsmo-KhlvgClinton Memorial Hospital11-07-2022 10:50-6463UeN4% (BldA) [Mass fraction]99 %Aimee Walker 728-9679Fcwmua-VsagpClinton Memorial Hospital11-07-2022 10:50-0500Systolic blood mhvqogvi121 mm[Hg]Aimee Walker 843-6417Wbehlk-EtbxoClinton Memorial Hospital08-30-2022 10:09-0400Diastolic blood manrqhlb57 mm[Hg]Alexis Rivers 109-4634Jcvsur-[facility]ngjReg[facility] [place] 05-13-2022 10:09-0400Heart rate68 /Manisha Rivers 762-4143Vpzhho-WhosgRegional Medical [facility] [place] 05-13-2022 10:09-0400Systolic blood gqhmhrpu891 mm[Hg]Alexis Rivers 455-0249Edahsm-AlkcnReg[facility] [place] 04-21-2022 09:39-0400Blood Pressure LocationAimee Walker 122-5382Vhsdiq-WmojsRegional [facility] Center [facility] 08-08-2022 09:39-0400Body cgiylmhrmhu33.24 [degF] Aimee Walker 143-6237Lnvops-KxjaaRegional Medical Center [facility] 08-08-2022 09:39-0400Diastolic blood cljwzugf41 mm[Hg] Aimee Walker 379-6184Nwvbfv-Vhgcb[address] [place] [address] Primary Care 08-08-2022 09:39-0400Heart rate94 /minAimee Walker [phone]-WjtymRegional Medical Center [facility] 08-08-2022 09:39-3920FfF1% (BldA) [Mass fraction]100 % Aimee Walker 295-8446Czxcwv-PweoeRegional Medical Center [facility] 08-08-2022 09:39-0400Systolic blood mm[Hg] Aimee Walker 863-0257Jfkgvz-Pekce[address] [place] [address] Primary Care 08-07-2022 14:56-0400Body xzgbdsnppfo63.24 [degF][facility]08-07-2022 14:56-0400Diastolic blood vbiphfeq13 mm[Hg][facility]08-07-2022 14:56-0400Heart rate69 /[facility]Sam[facility]08-07-2022 14:56-0400Respiratory rate18 /[facility] 04-20-2022 14:56-3544CoE6% (BldA) [Mass fraction]99 %[facility]08-07-2022 14:56-0400Systolic blood nrszcyos030 mm[Hg]Astrit [facility]ajdOur [facility] of [facility]07-21-2022 19:17-0400Hourly RoundingSherryylinn Dokken [address] [place], [place] 9228507-21-2022 19:17-0400 Promise to ReturnKaylinn Dokken [address] [place], [place] 9228507-21-2022 19:15-0400 Diastolic blood vqgpepkm89 mm[Hg]Kaylinn Dokken [address] [place], [place] 9228507-21-2022 19:15-0400Heart rate63 /minKaylinn Dokken [address] [place], [place] 9228507-21-2022 19:15-0400Mean blood bovpljvb36 mm[Hg]Kaylinn Dokken [address] [place], [place] 9228507-21-2022 19:15-0400 Respiratory rate18 /minKaylinn Dokken [address] [place], [place] 9228507-21-2022 19:15-6326CtU1% (BldA) [Mass fraction]100 %Kaylinn Dokken [address] [place], [place] 9228507-21-2022 19:15-0400 Systolic blood osccbkbb332 mm[Hg]Kaylinn Dokken [address] [place], [place] 9228507-21-2022 17:09-0400Body gzpcqzlkcga03.06 [degF]Kaylinn Dokken [address] [place], [place] 9228507-21-2022 17:09-0400 Diastolic blood cpetmmkh30 mm[Hg]Kaylinn Dokken [address] [place], [place] 9228507-21-2022 17:09-0400Heart rate87 /minKaylinn Dokken [address] [place], [place] 9228507-21-2022 17:09-0400 Respiratory rate18 /minLarry Baker [facility]07-21-2022 17:09-3228DfM4% (BldA) [Mass fraction]99 %Larry Baker [facility]07-21-2022 17:09-0400 Systolic blood maofrkul000 mm[Hg]Larry Baker [address] [place], [place] 5500305-26-2022 09:06-0400Blood Pressure LocationKathrletha Valadezell 531-0492Wczeun-Ddqdp[address] [place] [address] Primary Care Work Phone: [phone] 09:06-0400Body uzixuaiwjgf90.52 [degF] Aimee Walker 182-9849Lsfyyb-HdmvrRegional Medical Center [facility] Work Phone: [phone] 09:06-0400Diastolic blood vcatbhyz46 mm[Hg] Aimee Walker 687-3093Hobxrs-LdspuRegional Medical Center [facility] 05-26-2022 09:06-0400Heart rate81 /minDevikahrletha Valadezell 654-3700Ngguhw-MefphRegional Medical Center [facility] Work Phone: [phone] 09:06-9855KbA2% (BldA) [Mass fraction]100 % Aimee Walker 057-4508Takrfi-NatxgRegional Medical Center [facility] 05-26-2022 09:06-0400Systolic blood zmyewyku426 mm[Hg] Aimee Walker 777-4914Hpecai-WfdlkRegional Medical Center [facility] 05-18-2022 10:31-0400Blood Pressure LocationKathryn Walker 044-8906Mbzole-AjgjpRegional Medical Center [facility] 05-18-2022 10:31-0400Body rlbluboiapl64.16 [degF] Aimee Walker 518-8978Zgueqi-TelroRegional Medical Center [facility] 05-18-2022 10:31-0400Diastolic blood tfooppay42 mm[Hg] Aimee Walker 404-7026Dgzmvy-YeuucRegional Medical Center [facility] 05-18-2022 10:31-0400Heart rate94 /minAimee Walker 680-2076Whwhok-LgsubRegional Medical Center [facility] 05-18-2022 10:31-8965GuO6% (BldA) [Mass fraction]98 % Aimee Walker 604-5275Rdqpmf-YhhttRegional Medical Center [facility] 05-18-2022 10:31-0400Systolic blood jeumpywx192 mm[Hg] Aimee Walker 400-0962Ubkdyd-LdkqlRegional Medical Center [facility] 05-21-2021 07:15-0400Body vrkznpghxur10.7 [degF] Berry Lawson MD Work Phone: [facility] [employer] Work Phone: 1(435) 775-746705-21-2021 07:15-0400Diastolic blood fggivkvw00 mm[Hg] [facility]: 1(627) 150-850605-21-2021 07:15-0400Heart rate82 /Jade Lawson MD Work Phone: [facility] Work Phone: 1(876) 406-854205-21-2021 07:15-0400Respiratory rate18 /Jade Lawson MD Work Phone: [facility] [employer] Work Phone: 1(830) 326-344305-21-2021 07:15-9578XsG7% (BldA) [Mass fraction]98 % Berry Lawson MD Work Phone: [facility] [employer] Work Phone: 1(618) 492-288705-21-2021 07:15-0400Systolic blood krdewajj110 mm[Hg] Berry Lawson MD Work Phone: [facility] [employer] Work Phone: 1(107) 442-166305-19-2021 16:54-0400Body wvadvx829.2 cmBerry Lawson MD Work Phone: [facility] [employer] Work Phone: 1(704) 290-486505-19-2021 16:54-0400Body mass index (BMI) [Ratio] 38.53 kg/d4AeuusfkrBerry Lawson MD Work Phone: [facility] [employer] Work Phone: 1(607) 810-134205-19-2021 16:54-0400Body nrsjyi187.58 kgBerry Lawson MD Work Phone: [facility] [employer] Work Phone: 1(648) 779-719305-19-2021 14:27-0400Diastolic blood yfhuuurn96 mm[Hg] David Nash MD Work Phone: [facility] Work Phone: 1(519) 195-345805-19-2021 14:27-0400Heart rate93 /Matty Nash MD Work Phone: [facility] [employer] Work Phone: 1(169) 697-730705-19-2021 14:27-0400Respiratory rate16 /Matty Nash MD Work Phone: [facility] [employer] Work Phone: 1(156) 656-955705-19-2021 14:27-9235TyV0% (BldA) [Mass fraction]98 % David Nash MD Work Phone: [facility] Work Phone: 1(620) 127-904005-19-2021 14:27-0400Systolic blood hqngkdfi738 mm[Hg] David Nash MD Work Phone: [facility] [employer] Work Phone: 1(271) 588-650805-19-2021 09:51-0400Body pmwcwegswbl25.2 [degF] David Nash MD Work Phone: [facility] [employer] Work Phone: 1(213) 991-863705-15-2021 09:00-0400Body yuxiqktyohw56.2 [degF] Gamaliel Vickers DO [facility] Work Phone: 1(924) 195-136105-15-2021 09:00-0400Diastolic blood mosfvgfw70 mm[Hg] Gamaliel Vickers DO Work Phone: [facility] Work Phone: 1(260) 120-563905-15-2021 09:00-0400Heart rate90 /minGamaliel Vickers DO Work Phone: [facility] Work Phone: 1(800) 905-103805-15-2021 09:00-0400Respiratory rate16 /minGamaliel Vickers DO Work Phone: [facility] [employer] Work Phone: 1(887) 626-654005-15-2021 09:00-1464MfE5% (BldA) [Mass fraction]96 % Gamaliel Vickers DO Work Phone: [facility] Work Phone: [phone] 09:00-0400Systolic blood mm[Hg] Gamaliel Vickers DO Work Phone: [facility] Work Phone: 1(178) 356-650504-27-2021 07:35-0400Body ewahtnyhhta49.81 [degF] Gamaliel Vickers DO Work Phone: [facility] Work Phone: 1(799) 713-479504-27-2021 07:35-8233ZhO1% (BldA) [Mass fraction]97 % Gamaliel Vickers DO Work Phone: [facility] [employer] Work Phone: 1(482) 283-513504-27-2021 07:29-0400Diastolic blood mm[Hg] Gamaliel Vickers [employer] Work Phone: [facility] Work Phone: 1(377) 394-145404-27-2021 07:29-0400Heart rate87 /minGamaliel Vickers [employer] Work Phone: [facility] Work Phone: 1(845) 780-948604-27-2021 07:29-0400Respiratory rate18 /minGamaliel Vickers [employer] Work Phone: [facility] Work Phone: 1(478) [phone] 07:29-0400Systolic blood dxtsomwc019 mm[Hg] Gamaliel Vickers [employer] Work Phone: [facility] Work Phone: 1(819) 271-391504-26-2021 06:29-0400Body vtdagy597.2 cmGamaliel Vickers [employer] Work Phone: [facility] Work Phone: 1(149) [phone] 06:29-0400Body mass index (BMI) [Ratio] 40.68 kg/j0QaekyhuGamaliel Vickers [employer] Work Phone: [facility] [employer] Work Phone: 1(435) 216-557904-26-2021 06:29-0400Body miwoau740.8 kgGamaliel Vickers [employer] Work Phone: [facility] Work Phone: 1(250) 312-804204-12-2021 10:33-0400Body xbrgdy402.2 cmStvz 2M[facility] foundationZetta.[facility] Work Phone: 1(774) 280-491804-12-2021 10:33-0400Body mass index (BMI) [Ratio] 42.76 kg/m2Stvz 2Mcle[facility] foundationZ[facility] Work Phone: 1(295) 264-177004-12-2021 10:33-0400Body xbekuwqdyvt37.7 [degF][facility] Work Phone: 1(612) 385-286304-12-2021 10:33-0400Body smmqfu338.83 kgStvz [employer] Work Phone: 1(193) 633-373204-12-2021 10:33-0400Diastolic blood haqrlofa51 mm[Hg] Stvz [employer] Work Phone: 1(939) 885-938204-12-2021 10:33-0400Heart rate71 /minStvz [facility] Center[facility] Work Phone: 1(151) 619-551804-12-2021 10:33-0400Respiratory rate18 /minStvz 2 [employer] Work Phone: 1(359) [phone] 10:33-4791UmY7% (BldA) [Mass fraction]98 % Stvz [facility] Work Phone: 1(308) 757-896004-12-2021 10:33-0400Systolic blood tqdmbywo749 mm[Hg] Stz [facility] Work Phone: 1(529) 870-567601-15-2021 08:40-0500BP Sqlsxexjc40 mm[Hg][facility], [id number] 08:40-0500BP Zrqxgrio310 mm[Hg][facility], [id number] 08:40-0500Pulse (Heart Rate)84 /min [facility] [id number] 08:40-0500Pulse Wdyotmxj991 % [facility], IB49-27-8064 08:25-0500Body Izpaphptfvf74.8 [degF][facility] ZD96-11-4601 08:25-0500Respiratory Rate 23 [place] 07:07-0500BMI (Body Mass Index)45.66 kg/q4JzojuxjTakoma [facility] Hospital AM42-19-4293 07:07-0500Body .22 [place] 07:070500Height 170.2 cmGregory [facility] [place], [place] Encounters Encounter DateEncounter TypeCare ProviderFacilityStart: 07-21-2025 End: 30-36-2474xemkxajuidZay W CastleFacility:FTMCStart: 07-12-2025 End: 66-08-2507bjhlzuyznoYiw D Ladarius DO Work Phone: [phone]-[facility] NeurologyStart: 07-12-2025 End: 09-57-9519Jrpawvd encounter procedureChristopher Suzie Blue [facility] Work Phone: Start: 80-45-2508hnqcwyvjnpSwq W CastleFacility:[facility] Start: 07-03-2025 End: 14-32-0607Tioinp Tan Buckley MD Work Phone: [facility] EyeStart: 07-03-2025 End: 73-51-7095Kbfdpd Tan Buckley MD Work Phone: [facility] EyeStart: 07-03-2025 End: 94-37-5496Sdqohp outpatient new 45 Aleja Buckley MD Work Phone: [facility] EyeComment on above:IIH (idiopathic intracranial hypertension) (Primary Dx)Start: 07-03-2025 End: 31-58-3720zpksxtbimkDISMY M ALLENNot AvailableStart: 06-29-2025 End: 35-53-0883Jhpefebrv department patient visitJennie Durand DO Work Phone: [phone]-Qbiyuclqj Room Work Phone: Start: 06-29-2025 End: 99-03-2801Lghtgr follow up visit related to original pxAaliyah Francis DO Work Phone: [facility] AssociatesComment on above:Hematoma (Primary Dx); Pseudoangiomatous stromal hyperplasia of breastStart: 06-29-2025 End: 37-90-0277zhexsrkhbxTGEVXRV H [place] AvailableStart: 06-14-2025 End: 88-67-8153Aqsvie follow up visit related to original pxFredkaushik Castillo Itmanisha DO Work Phone: NON[facility] AssociatesComment on above:Hematoma (Primary Dx); Pseudoangiomatous stromal hyperplasia of breastStart: 06-14-2025 End: 20-67-7177tjptuvxzzyQBGHUSW H ITMANISHANot AvailableStart: 06-06-2025 ambulatoryEfrem VictorFacility:[facility] Hospitaltart: 70-20-8700Evtbyakloq [place] RAY CredibleStart: 05-30-2025 End: 82-92-1130Dhnzslhhp to same day surgery centerFredric Itmanisha DO-[facility] CampusStart: 05-30-2025 End: 02-32-5996saglxgflddHjm D Browne DO Work Phone: [facility] Work Phone: Start: 55-75-3559qwhdcrusagLulgrrj [place] [facility] 05-16-2025 End: 54-29-1769Corfyinr ReferredFredric Itzkowitz QY-Peh-Qfcsuezl Testing Work Phone: Start: 05-16-2025 End: 45-11-1178Dbkqxtb encounter procedureFredric Itzkowitz OY-Hap-Zrglusul Testing Work Phone: Start: 05-16-2025 End: 67-98-6699qeljetrpahVwy D Durand DO Work Phone: [facility] Work Phone: Start: 00-43-2736Illmixryds [place] RAY CredibleStart: 05-04-2025 End: 62-15-1124Telaju outpatient visit 25 minutesFredric H Itmanisha DO Work Phone: NONC Surgical AssociatesComment on above: Pseudoangiomatous stromal hyperplasia of breast (Primary Dx)Start: 05-04-2025 End: 99-56-9118syfgkbhrswBCWAFVY H ITZKOWITZNot AvailableStart: 04-26-2025 End: 73-75-9310Qmpszqt encounter procedureFredric Itmanisha DO-[facility] Work Phone: Start: 04-26-2025 End: 49-67-2335icstbrgbwuNytvjvorz Osmani CALDERAN Work Phone: [facility] Work Phone: Start: 04-21-2025 End: 30-63-4698jzpyesuewaFjf W CastleFacility:FTMCStart: 10-23-5004Fywfcheexv [place]field WALTON CredibleStart: 04-13-2025 End: 69-73-0064Obheww outpatient new 60 minutesFredric H Itzkojosetz DO Work Phone: NOYO Surgical AssociatesComment on above: Pseudoangiomatous stromal hyperplasia of breast (Primary Dx); Hypertrophy of breastStart: 04-13-2025 End: 82-02-8922hedrsghimzXJUCKXR H ITZKOWITZNot AvailableStart: 04-09-2025 End: 82-43-2562Sggeqq outpatient visit 25 minutesJessica L Didion CUSTOMS PORT DIRECTOR Work Phone: [facility] Urgent CareComment on above:Acute pharyngitis, unspecified etiology (Primary Dx); Pharyngitis, unspecified etiologyStart: 04-09-2025 End: 03-17-2201zfrvemycpcIDIRTKJ L DIDIONNot AvailableStart: 03-29-2025 End: 04-43-9264zvftgwxlbjIxfhw Swati HaddadFacility:FTMCStart: 03-16-2025 End: 44-52-6672Wzh-admission assessmentLoswathi Peace [facility] Start: 03-13-2025 End: 27-47-9393gdygtyciaqXqu W CastleFacility:FTMCStart: 03-09-2025 End: 50-55-8706rlotuovtipBjkrebec A. JonesFacility:FTMCStart: 03-09-2025 End: 65-19-9207Ldobqmh encounter procedureBabar Mayers [facility] Start: 03-03-2025 End: 47-62-1342yrdinyukhhXdlocicv A. JonesFacility:FTMCStart: 03-03-2025 End: 07-86-7383Puya ManagementBabar Mayers [facility] Start: 03-02-2025 End: 23-76-5499mzpjezomojCRUNCW R KLONKFacility:FTMCStart: 03-02-2025 End: 33-51-7960Opobztb encounter procedureMARII RICK [facility] Start: 02-17-2025 End: 70-65-8323Ptraqoirh department patient visitTim Austin [facility] Start: 02-16-2025 End: 97-52-7523zvmjyuemzvRqf W CastleFacility:FTMCStart: 02-16-2025 End: 90-97-8990Wlnetwl encounter procedureJak Mesa [place] [facility] Start: 02-16-2025 End: 07-18-5341qodjvfnzbdDQWREKMY HERNANDEZFacility:FTMCStart: 02-16-2025 End: 56-22-4746Tpdljzh encounter procedureLoswathi Mesa [place] [facility] Start: 02-11-2025 End: 09-84-8527LyvevcVwceh Wolfe DO Work Phone: Family MedicineComment on above:Refill RequestStart: 02-09-2025 End: 95-73-8333kshnchpgwzGeeqczk OthmanFacility:FTMCStart: 02-09-2025 End: 03-43-2498Ztwumxz encounter procedureMOLLY GREGORIO [facility] Start: 02-03-2025 End: 01-92-6870Yhs-admission assessmentBabar Mayers [facility] Start: 02-03-2025 End: 33-59-4150mnrtxqegimSQMYUJBR HERNANDEZFacility:FTMCStart: 01-27-2025 End: 63-68-1367zigdydrncuAvklvk SpringerFacility:FTMCStart: 01-27-2025 End: 12-03-9584Rgechpa encounter procedureAmanda Kate [facility] Start: 01-24-2025 End: 29-25-9088wnqviohaqlWyejnwtp A. JonesFacility:FTMCStart: 01-24-2025 End: 96-16-1195Cupj ManagementBabar Mayers [facility] Start: 01-19-2025 End: 49-43-6245Hvz-admission assessmentAmanda Kate [facility] Start: 01-13-2025 End: 07-24-0094fyfnyiamlcDojpxx SpringerFacility:FTMCStart: 01-13-2025 End: 79-15-4671Vcprgwf encounter procedureAmanda [employer] [facility] Start: 12-16-2024 End: 22-22-0048Hajbmqa encounter procedureK[facility]-MRI Main [place] Work Phone: Start: 12-16-2024 End: 93-45-5983sxjmancygbCWT [facility] Work Phone: Start: 12-14-2024 End: 47-90-6494llacvnstgtSnzuocs B RhiewFacility:FTMCStart: 12-14-2024 End: 33-66-2228Gcvrpob encounter procedureDavid Rivers Rhiew [facility] Start: 12-12-2024 End: 98-91-2205Gabpdgh encounter [facility]-Lab [address] Work Phone: Start: 12-12-2024 End: 39-04-2099oggidzmpyaRYDUK Healthcare Work Phone: Start: 11-29-2024 End: 82-11-7143fyadmzrkyiUbb D BrowneFacility:FTMCStart: 11-28-2024 End: 29-64-8178kbfvnpbnagFfqrxlls A. JonesFacility:FTMCStart: 11-28-2024 End: 14-31-6148Qgoe Steve Mayers [facility] Start: 11-18-2024 End: 24-95-6865susucvujtiVTMHWU A LEHMANNFacility:FT FM BellthomasueStart: 11-15-2024 End: 94-04-2456dqhyvfdrfgYtjmib SpringerFacility:FTMCStart: 11-15-2024 End: 22-67-5856Hfwmabh encounter procedureAmanda Kate [facility] Start: 11-11-2024 End: 96-42-9692nkymdjdrnlDcfprex B RhiewFacility:FTMCStart: 11-11-2024 End: 37-67-2692Brbsjjf encounter procedureDavid Silvestre Victorinoangelinamoshe [facility] Start: 11-02-2024 End: 29-86-6794Yvjcwja encounter procedureJennie Durand [facility] Start: 11-02-2024 End: 39-41-4483pnvtrwnyjbUeu Jeni BrowneFacility:FTMCStart: 11-01-2024 End: 91-98-1579Vyd-admission assessmentJennie Jeni Ladarius [facility] Start: 10-18-2024 End: 64-86-5982Fnuzmarzs department patient visitAstrit Jonathan BrenGuernsey Memorial Hospital Start: 10-17-2024 End: 66-22-7067kkmoykfeqpTrnqqdpzCarroll Regional Medical Center EnterpriseStart: 10-17-2024 End: 99-20-1284Cfkcqre encounter procedureMicCarroll Regional Medical Center EnterpriseComment on above:Population Health Navigation Outreach (Mauricio Phan)Start: 10-14-2024 End: 36-63-2664nsltnukfqqLPFZHG A LEHMANNFacility:FT BellevueStart: 09-30-2024 End: 29-06-9035gfabhmoaivSDFMTW A LEHMANNFacility:FT FM BellevueStart: 09-27-2024 End: 26-62-6528Djiuud flowsheetChristopher Suzie DO Work Phone: aNA NORWALKStart: 09-27-2024 End: 06-23-0381Kzmzwi flowsheetChristopher Suzie DO Work Phone: ana NORWALKStart: 09-27-2024 End: 88-33-8619Bnegute encounter procedureChristopher Suzie DO Work Phone: aNA NORWALKComment on above:MyalgiaStart: 09-27-2024 End: 83-15-9249tvtnuakpcsYATDTQDZNZA HASSETTNot AvailableStart: 09-27-2024 End: 70-85-2075uwopevgzozVEGRMR A LEHMANNFacility:FT FM BellevueStart: 09-26-2024 End: 68-96-3579ejuewejyvkHSGZQB A LEHMANNFacility:FT FM BellevueStart: 09-21-2024 End: 12-55-3045Bihqfnlvz Result EncounterChristopher Suzie DO Work Phone: noms External Department UnsolicitedStart: 09-21-2024 End: 32-04-9577Ztazyidgz Result EncounterChristopher Suzie DO Work Phone: noms External Department UnsolicitedStart: 09-21-2024 End: 59-59-6239Lahngv outpatient visit 25 minutesChristopher Suzie DO Work Phone: aNA BELLEVUEComment on above:Ataxia (Primary Dx); MyalgiaStart: 09-21-2024 End: 77-68-7652gntvnqtddqTXGQIPCBZQY HASSETTNot AvailableStart: 09-20-2024 End: 50-91-8103Kcv Drop offSHELLY A ESHA [facility] Start: 09-20-2024 End: 90-19-3665egbiqaucjwDNFSKN A LEHMANNFacility:FT FM BellevueStart: 18-49-7697kvjosweudtPUWYEI LEHMANNFacility:FT FM BellevueStart: 09-15-2024 End: 44-53-6359Ilbuahlcm department patient visitThe [facility]- [facility] Work Phone: Start: 09-15-2024 End: 88-25-0992xgsnvyoeyuKWSBOCNIL BREAULTFacility:FT FM BellevueStart: 09-13-2024 End: 30-85-9608Ygvateqwao hospital visit by Sonia Smith Echo/Vasc Room 2Flowers HospitalComment on above:Angina pectoris; Shortness of breath; Palpitations; Family history of ischemic heart disease; Primary hypertensionStart: 09-13-2024 End: 19-35-5179rzqbdgejtjMLWJBHAdams County Regional Medical Center Start: 09-04-2024 End: 81-78-4900gcnkxhdcsfMkmhu Carson DO Work Phone: [facility] MedicineComment on above:Blood workStart: 08-25-2024 End: 99-66-8368zdglqwwjmqTpjkjOdessa Trinidad RN Work Phone: ambulatory Care ManagementStart: 08-25-2024 End: 71-12-4696Cmyrjvs encounter Cinda Trinidad RN Work Phone: ambulatory Care ManagementComment on above:CARMELINA LAN RN (ED Utilization Review per request of payor/)Start: 08-18-2024 End: 12-29-0204Nsbtipx encounter procedureSCODIE MARADIAGA [facility] Start: 08-17-2024 End: 16-27-6585ExbuzrWmkqt Wolfe DO Work Phone: [facility] Hospitaljg MedicineComment on above:Med Change Request Start: 08-08-2024 End: 51-05-3015Axhdmo outpatient new Sharon Howard MD Work Phone: [facility] CenterComment on above:Angina pectoris; Shortness of breath; Palpitations; Family history of ischemic heart disease; Primary hypertension; Current smoker; BMI 29.0-29.9,adultStart: 08-08-2024 End: 55-46-7707wfosmvsdhvKEJPKEBrooks Memorial Hospital AmbulatoryStart: 07-26-2024 End: 98-21-9929pgdbgczilcPZWDK WOLFEFacility:[facility] HospitalStart: 07-25-2024 End: 00-88-2679vgoaymvroqXKHIM WOLFEFacility:[facility] Hospitaltart: 07-25-2024 End: 09-01-4949Ordaqr outpatient visit 25 Mony Carson DO Work Phone: Fawadarrel MedicineComment on above:Bipolar affective disorder in remission (HCC) (Primary Dx); Borderline personality disorder (HCC); Anxiety disorder, unspecified type; Chest pain, unspecified type; Iron deficiency anemia, unspecified iron deficiency anemia typeStart: 07-22-2024 End: 05-39-5301zrpfrxaulwVebpi Wolfe DO Work Phone: FawaMuzeek MedicineComment on above:Depression and anxiety Anxiety; DepressionStart: 07-13-2024 End: 23-78-6893Uvfiwhpyo encounterSbill Tate RNMammographyComment on above:Results; AppointmentStart: 07-11-2024 End: 39-96-6257mqxcowrkfkMUQLJQ PURYSKOFacility:[facility] Hospitaltart: 07-11-2024 End: 45-68-7351Jumziasuma hospital visit by physicianProcedure Mammo [facility] Stro MammographyComment on above:Abnormal mammogram of left breast [R92.8]Start: 07-04-2024 End: 98-53-7239cosgpunrbhYWXMF WOLFEFacility:[facility] Hospitaltart: 07-04-2024 End: 22-06-5609Jxzljkw encounter procedureMarulises Tyler APRN.HEAD TURNING MACHINE OPERATOR Work Phone: [facility] CenterComment on above:Abnormal mammogram (Primary Dx); Mass of upper outer quadrant of left breast; Fibrocystic breast changes of both breasts; Mastodynia; Inversion of left nipple; Bloody discharge from left nipple; Nipple dischargeStart: 07-04-2024 End: 86-26-6381Zsdzuapsit hospital visit by physicianClinic Imaging Mammo Stro Work Phone: MammographyComment on above:Mass of upper outer quadrant of left breast [N63.21]Start: 64-22-3231Ovh-patient / Non-visit [facility] Work Phone: Start: 07-01-2024 End: 03-33-0417smqdowxvrwKTGPE WOLFEFacility:[facility] Hospitaltart: 07-01-2024 End: 99-27-6962Tkqunr outpatient visit 25 minutesJacob Ledy DO Work Phone: Famieq MedicineComment on above:Chest pain, unspecified type (Primary Dx); Palpitations; Bipolar affective disorder in remission (HCC); History of substance abuse (HCC); Borderline personality disorder (HCC); Serum calcium elevatedStart: 06-30-2024 End: 62-78-2386Bxrxjtbnc encounterMarulises Tyler APRN.CNP Work Phone: Breast CenterComment on above:AppointmentStart: 05-30-2024 End: 26-48-5979rxxuzitsipLmvjfjeq White RN Work Phone: Ambulatory Care ManagementComment on above:CARMELINA LAN RN (ED Utilization review per request of payer)Start: 04-26-2024 ambulatoryTrevor Swathi Baires DO Work Phone: Famiib MedicineStart: 03-08-2024 End: 56-36-4835Jzxgksycv department patient visitminh Vazquez [facility] Start: 03-08-2024 End: 61-53-7819Jselcgilgj hospital visit by physicianMri [facility] [place] (Lg Bore/1.5t)Radiology MRIComment on above: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]Start: 03-08-2024 End: 41-15-5463nhcpcppyjiTFXJM A NAFFOUJEFacility:[facility] Start: 03-08-2024 End: 38-15-3740Orrtaar encounter procedureTrevokeshav Baires DO Work Phone: Famiqq MedicineComment on above:Routine health maintenance (Primary Dx); Class 1 obesity due to [...] Borderline personality disorder (HCC); Anxiety disorder, unspecified typeStart: 03-08-2024 End: 69-99-9731Xzpwlmm encounter statusTrevokeshav Baires DO Work Phone: [facility] Work Phone: Start: 02-25-2024 End: 10-57-7050wxtwlrdqliZAYZKW N SCHROEDERFacility:[facility] Start: 01-13-2024 End: 31-46-3128dpwtxtjeduQOAPBVUC [facility] Hospitaltart: 54-37-3971Fsfrevpyz encounterTrevor Swathi Baires DO Work Phone: Family MedicineStart: 01-04-2024 End: 69-97-8477yrsqyzefmbMLFURF Swathi BAIRESFacility:[facility] Start: 01-04-2024 End: 01-65-6935Nxxlidf encounter procedureTrevokeshav Baires DO Work Phone: Famieq MedicineComment on above:Panic disorder (Primary Dx); Borderline personality disorder (HCC); Bipolar affective disorder in remission (HCC); Chronic alcoholism in remission (HCC); Routine health maintenanceStart: 01-04-2024 End: 11-05-5812Sopktkz encounter statusTrevokeshav Baires DO Work Phone: [facility]tart: 12-31-2023 End: 00-47-6509Jermioqog department patient visitDO Jennie Durand Work Phone: [facility]-Emergency Room Work Phone: Start: 51-53-9945tlfedwvjvsITDI REFERRALFacility:[facility] Start: 12-24-2023 End: 13-53-1328Povdsbhvi department patient visitDO Jennie Durand Work Phone: [facility]-Emergency [facility] Work Phone: Start: 15-44-2515zbqrhphdlyTegsAnna Larsen Facility:FTJEROLD PHELPS COMMUNITY HOSPITALtart: 12-10-2023 End: 53-49-9986Giuopsjya department patient visitDO Jennie Durand Work Phone: [facility]-Emergency Room Work Phone: Start: 12-09-2023 End: 86-55-3896oikzjbjohzQpd D BrowneFacility:FTMCStart: 12-09-2023 End: 47-98-4960Xceomnn encounter procedureJennie Durand [facility] Start: 10-23-2023 End: 41-26-7600odfxzlcczzTTERSGChristoph Norwoodard HospitalStart: 10-12-2023 End: 04-31-1822ejltzpbuvxKFQXYPGGAMALIEL Finch HospitalStart: 09-18-2023 End: 04-36-4535Oyvqraurtt hospital visit by physicianGamaliel Vickers DO Work Phone: mhpb Haskell ORStart: 08-31-2023 End: 16-54-0300gxfgeqqtaiVELVS A NAFFOUJEFacility:[facility] HospitalStart: 08-28-2023 End: 93-87-0708hegxlutaeeXwpw Asaad Other [place] [employer] Other Start: 02-71-6186Faaujmdyr encounterImad AsaadFPG Referral CoordinatorStart: 08-18-2023 End: 68-30-9962ldwvlbpinvSPYDQO BERRYMercy Doole HospitalStart: 08-15-2023 End: 41-35-3370Zeskqylzy department patient visitDO Jennie Durand Work Phone: [facility]-Emergency Room Work Phone: Start: 08-14-2023 End: 14-06-5902Jdpcfgntz department patient visitDO Jennie Durand Work Phone: [facility]-Emergency Room Work Phone: Start: 08-13-2023 End: 42-64-5503nudtdunzraXrqp Asaad Other [facility] [employer] Other Start: 53-18-0141Yuylvk outpatient new 45 minutesImad AsaadFPG GastroenterologyStart: 08-12-2023 End: 36-49-0511jvuvpxljwgPBQFVY Kaykay Fanfin HospitalStart: 07-08-2023 End: 87-80-7129otkcuwwoanUuppva Dymond Other [facility] [employer] Other Start: 97-88-3047Hluoye outpatient new 20 minutes Ania DymondFPG Urgent Care ClydeStart: 07-03-2023 End: 57-13-6806Oldwlaian department patient visitDO Jennie Durand Work Phone: [facility]-Emergency Room Work Phone: Start: 07-02-2023 End: 26-83-7516Aoglugfmc department patient visitBakari Chester [facility] Start: 06-10-2023 End: 22-29-6297fkrdrwmvcyHAQQER MANFacility:[facility] HospitalStart: 06-09-2023 End: 51-01-9996Oxqwvkjzj department patient visitJominh ParenteFacility:FTMCStart: 14-19-3244BklajpZpxcyb Man MD Work Phone: NeurologyComment on above:Refill RequestStart: 03-19-2023 End: 31-54-4534wbihwukbkeHT GANESH CORDEROFacility:FTMCStart: 03-19-2023 End: 35-03-7829Havlxvo encounter Godwin CORDERO [facility] Start: 01-29-2023 End: 65-11-9896Efpbnosacn hospital visit by physicianarielle [facility] Vicky (1.5t) Work Phone: RadiologyComment on above:Idiopathic intracranial hypertension [G93.2]Start: 01-15-2023 End: 26-55-3478Qrpvjolne department patient visitBakari Chester [facility] Start: 01-02-2023 End: 59-80-8119Nttdmxm encounter procedureNakia Mcqueen [phone]-VxjojRegional Medical Center [facility] Start: 79-75-4246NspjmlNooxva Man MD Work Phone: NeurologyComment on above:Refill RequestStart: 12-05-2022 End: 62-23-4024Xelsapytq to same day surgery bedfordGal Das [facility] Start: 11-21-2022 End: 91-80-2604Fsgyheu encounter procedureGal Das [facility] Start: 11-20-2022 End: 45-66-3028hdhisbjruqXBGCXQ MANFacility:[facility] HospitalStart: 11-20-2022 End: 61-68-1428Sbatfrl encounter Kirstie Alvarez MD Work Phone: NeurologyComment on above:Idiopathic intracranial hypertension (Primary Dx); Depression, unspecified depression type; Primary hypertension; Hx of gastric bypass; H/O foot surgeryStart: 11-03-2022 End: 28-09-7607Cgouwbi encounter procedureNakia Mcqueen [phone]-VqjxtRegional Medical Center [facility] Start: 10-30-2022 End: 96-00-1174jxqgcdknltVRVBZN RODRIGUEZ .Facility:H8Zldyh: 10-23-2022 End: 78-74-8260Mvx Drop Lucy Das [facility] Start: 10-14-2022 End: 84-31-9975Tmjlmsa encounter procedureRita Loja [facility] Start: 09-24-2022 End: 86-51-0697Inkvspt encounter procedureAimee Walker [phone]-AsttdRegional Medical Center [facility] Care Start: 08-22-2022 End: 07-62-8696Uugmjft encounter procedureRahul SalinasRegional Medical Center [facility] Start: 08-19-2022 End: 17-53-2573tlrjuqriqjKN Jennie Durand Work Phone: [facility] Work Phone: Start: 08-19-2022 End: 88-36-3814Agxjysx encounter procedureDO Jennie Durand Work Phone: [facility]-XRay [facility] CampusStart: 08-18-2022 End: 52-57-0755quvwhdyxvdYQ NATALIE GRECHNY .Facility:P0Kvjuh: 08-18-2022 End: 17-30-5037Puotgbkpq department patient visitAlexis Vazquez [facility] Start: 08-16-2022 End: 00-11-9130pzdmihspeoAK JACK HAY .Facility:M5Cjari: 05-34-0446eonnozvugy Facility:9090Start: 08-11-2022 End: 70-04-7727Tsvefwsspf and management of inpatientDO Jennie Hameede Work Phone: [facility]-4 [place] SurgicalStart: 08-11-2022 End: 16-91-6763igqbbiseyyb encounterDO Jennie Durand Work Phone: [facility] Work Phone: Start: 08-11-2022 End: 69-23-5005urmuaourltMF WEI PHAMFacility:E6Xfbwr: 08-08-2022 End: 49-01-4824Umzanihzd department patient visitBakari Chester [facility] Start: 07-21-2022 End: 34-53-9200Ptewysm encounter procedureAimee Walker [phone]-PocibRegional Medical Center [facility] Care Start: 07-19-2022 End: 48-88-0520xtlmtnckswPS DOCTOR MISCFacility:D7Tpgqn: 24-33-7947Qdlzhkyso Estela Leiva) LevyPlastic SurgeryComment on above:AppointmentStart: 06-12-2022 End: 00-93-5520ebytdlomgaTY CAROLYNE RALPHFacility:E6Pglmg: 06-10-2022 End: 16-49-5519Pupjjic encounter Godfrey Rivers [facility] Start: 05-30-2022 End: 74-14-9148ahgaxhvxcwYELXGEY D KATKOFacility:R0Kwcel: 05-13-2022 End: 17-92-6077Kqqjlyi encounter Godfrey Rivers [phone]-TvheuRegional Medical Center General Surgery [place] Start: 04-22-2022 End: 67-52-7484Zetjzuk encounter procedureAimee Walker [facility] Start: 04-21-2022 End: 74-90-5020Dtcngqh encounter procedureAimee Walker [phone]-PicouRegional Medical Center [facility] Start: 04-20-2022 End: 59-74-4947Bcnnzmygi department patient visitJose CorreiaGuernsey Memorial Hospital Start: 04-07-2022 End: 79-62-8866xyzsqfcpskTG JEFFREY PAY .Facility:N2Vsvsa: 04-03-2022 End: 90-89-7026Nphvgqvli department patient visitLarry Baker [facility] Start: 04-03-2022 End: 40-72-3295Uzrh adult monitoring check doneLarry Baker [facility] Hospitaltart: 02-12-2022 End: 54-21-0523Jknmgsr encounter procedureAmee Gonzalez PA-C Work Phone: OtolaryngologyComment on above:Burning tongue (Primary Dx); Irritation of oral cavityStart: 02-08-2022 End: 75-70-2786dgkclcvjygKUDXEV RODRIGUEZ .Facility:C1Czrzq: 02-06-2022 End: 47-47-6053Zafavvy encounter procedureAimee Walker [phone]-EizugRegional Medical Center Primary Care Start: 01-30-2022 End: 74-25-6443yfedkkwzsxXSNIFWD D KATKOFacility:S1Prhnc: 01-29-2022 End: 61-45-2808Wqlfayz encounter procedureAimee Walker [phone]-VcnrwRegional Medical Center [facility] Start: 14-49-2928smfndzrbipMgvxqq A Levy MD Work Phone: Plastic SurgeryComment on above:questionsStart: 77-38-5566Eyxevqbrj Estela Mckee MD Work Phone: Plastic SurgeryComment on above:Patient Question; AppointmentStart: 01-09-2022 End: 98-33-1178Iktqhtd encounter procedureKaterin Walker [phone]-NcihwRegional Medical Center Primary Care Start: 69-61-6339Lzdpmivss Estela Mckee MD Work Phone: Plastic SurgeryComment on above:OrdersSchedulingStart: 11-16-2021 End: 65-64-5687gypgmqgtdyZX WILEY HELMFacility:T3Hsxdr: 02-04-2021 End: 95-23-7433Klyspiakuy hospital [facility] by physician[facility] ScanComment on above:Omental infarction (HCC)Start: 01-30-2021 End: 81-50-2964Asitewlwkc and management of inpatientBerry Lawson MD Work Phone: stvz 2C Ortho/Med SurgComment on above:Surgery, elective (Primary Dx); Omental infarction (HCC)Start: 01-30-2021 End: 42-47-7778Nadotmvgm department patient visitDavid Nash MD Work Phone: [facility] EDComment on above:Generalized abdominal pain (Primary Dx)Start: 01-26-2021 End: 10-81-3038Zpdudcxzsm hospital visit by Kenia Vickers DO Work Phone: stvz 3C Med SurgComment on above:DehydrationStart: 01-07-2021 End: 45-27-3132Iruglzhtte and management of inpatientGamaliel Vickers DO Work Phone: stvz 2C Ortho/Med SurgComment on above:Post-op pain (Primary Dx)Start: 01-03-2021 End: 01-32-2466mhmrhafpoqESS Jeni MERLINMemorial Health Systemrosy [facility] Hospitaltart: 01-03-2021 End: 60-91-4669Ishmori encounter statusStaz Vanita Covid ScreeningStart: 01-03-2021 End: 86-27-6647Yeuzqqwoia hospital visit by physicianSgiovana Beyid Screening ScheduleSGIOVANA Covid ScreeningComment on above:Preop testing (Primary Dx)Start: 12-24-2020 End: 74-68-5012Mmjnpuowdr hospital visit by physicianSmoni Salinas [facility] RadiologyComment on above:ArrivedStart: 11-01-2020 End: 25-89-1008Inugcxwsnf hospital visit by physicianApi Healthcare Gen [facility] RadiologyComment on above:Gastroesophageal reflux disease with esophagitis without hemorrhageStart: 10-26-2020 End: 20-10-8020Muzzxznlcw hospital visit by physicianIlblanquita Covid Screening ScheduleMT Covid ScreeningComment on above:Preoperative testingStart: 09-28-2020 End: 55-63-9312Zspqcvxyqw hospital visit by Kenia Vickers Work Phone: STMZ Haskell ORStart: 09-24-2020 End: 42-73-4168Uyrhsgpjza hospital visit by physicianApi Healthcare Hakan19 Pat Screening ScheduleGAHZ PRE ADMITComment on above:Preoperative testingStart: 11-01-2015 Patient encounter procedureKATHERINE DISANOFacility:[facility]ROHealth Procedures DateProcedureProcedure DetailPerforming ClinicianStart: 07-03-2025 End: 23-28-8387Lmlvsa field xm uni/bi w/interp extended examSarah Buckley MD Work Phone: Start: 31-45-9298NL of head without contrastJennie Durand DO Work Phone: start: 21-24-3541Xcomb chest X-rayJennie Durand DO Work Phone: start: 01-52-4394Obzpgynkorq of left breast specimen Jennie Durand DO Work Phone: start: 39-49-5136Rzmjgqfxyr of left breastAmy Durand DO Work Phone: start: 73-51-6409Kttausxfyix of left breastAmy Durand DO Work Phone: start: 58-84-3299Bgixhdnraopxfoc guided needle localization of lesion of left breastAmy Durand DO Work Phone: start: 16-29-5886Tmtkzkqmwxq of left breastLindy Keen [employer] Work Phone: Start: 35-12-9329Rrcsfalvpheiecb of left breast Lindykorin Keen [employer] Work Phone: Start: 85-49-2449Zphlo streptococcus group a amplified probe tqJessica Isreal Elise NP Work Phone: Start: 79-88-0227Lprkgkmig of facet joint using fluoroscopic guidanceBabar Mayers comment on above:L4-X1Tjmil: 81-21-7516Iwbyvzdxe of facet joint using fluoroscopic guidanceIsmaelShareTracker start: 35-78-6312TVZ of headStart: 82-32-2905Wtvlcfeyx of nerve root of lumbar spine using fluoroscopic guidanceSaint Clare'S Hospital At DoverShareTracker comment on above:left L5/S1 TFESIStart: 09-27-2024 End: 59-88-5732Cduqor emg ea extremty w/paraspinl area completeChristopher Suzie DO Work Phone: Start: 94-97-0138PKP MYOGLOBINChristopher Suzie DO Work Phone: Start: 67-94-6194WEE THYROID STIM HORMONEChristopher Suzie DO Work Phone: Start: 97-17-0159KR angiography of headStart: 13-80-1359QS angiography of neck vesselsStart: 00-27-1870IK of head without contrastStart: 15-63-4009Divtw chest X-rayStart: 04-36-7976Rcff tthrc r-t 2d w/wom-mode compl spec&colr dGeekatharine Howard MD Work Phone: Start: 83-75-3712Ddz routine ecg w/least 12 lds w/i&r Aleah Howard MD Work Phone: Start: 99-94-3447Twfjfvp breast tomosynthesis Mallika Asif MD Work Phone: Start: 07-11-2024 End: 79-91-3575St breast w/device 1st lesion ultrasound Bassam Asif MD Work Phone: Start: 03-08-2024H/O: hysterectomyHistory of hysterectomyTrevor N Baires [employer] Work Phone: Start: 93-85-36009r rendering w/interp&postproc diff work stationSamer Fallon Aguirre MD Work Phone: Start: 24-82-3082Tfl abdomen w/o & w/contrast material Samer Fallon Aguirre MD Work Phone: Start: 09-52-4265Fzaf tst prsmv instrmnt chem analyzers pr dateTrevor N Mechelle SNOWDEN Work Phone: Start: 93-96-8865Kzeba chest X-rayDO Jennie Durand Work Phone: start: 56-36-7795Eqsvxhmy tomography of abdomen and pelvis with contrastDO Jennie Durand Work Phone: start: 29-86-9971Nut head w/o & w/contrast material Eileen Alvarez MD Work Phone: Start: 90-89-2912QqbkthaxaqvyBfadj Kasten Start: 00-78-9526QEK of headDO Jennie Durand Work Phone: start: 89-91-4962QNN venographyDO Jennie Durand Work Phone: start: 73-10-1050Nq abdomen & pelvis w/contrast materialGamaliel Vickers DO Work Phone: Start: 39-86-8317HOQSY METABOLIC PANEL W/ REFLEX TO MG FOR LOW KJordan Wisam DO Work Phone: Start: 78-25-1065Wanwv count complete auto&auto difrntl wbcJordan Wisam DO Work Phone: Start: 74-34-2100LWVHO METABOLIC PANEL W/ REFLEX TO MG FOR LOW KMegan I Mimi DO Work Phone: Start: 54-10-1632Tbeju count complete auto&auto difrntl wbcMegan I Mimi DO Work Phone: Start: 01-30-2021 End: 40-75-9326Ocjxicqyamww chorionic qualitativeSitwan Mckeon MD Work Phone: Start: 30-02-7112Nsdewlmota microscopic onlyDavid Nash MD Work Phone: Start: 14-95-7849Xsdix dip stick/tablet rgnt auto w/o microscopyDavid Nash MD Work Phone: Start: 10-85-7828Bo abdomen & pelvis w/contrast materialDavid Nash MD Work Phone: Start: 55-30-8380Bndye of lipaseDavid Nash MD Work Phone: Start: 97-44-2011Rygisbl [Moles/volume] in Serum or PlasmaDavid Nash MD Work Phone: Start: 43-44-0483Qqiftffxhh exam esophagus single contrast studyGamaliel Vickers DO Work Phone: Start: 19-96-9484Fekdj metabolic panel calcium total Gamaliel Keshav Vickers DO Work Phone: Start: 26-88-2566Dykaw metabolic panel calcium total Gamaliel Vickers DO Work Phone: Start: 01-07-2021 End: 54-26-7965Wjks gstr rstcv px w/byp tian-en-y limb <150 cmGamaliel Vickers DO Work Phone: Start: 92-00-4561Oqavr test visual color cmprsn methsGlorena Vickers [employer] Work Phone: Start: 12-51-1682Jpzjd of nicotineGamaliel Vickers [employer] Work Phone: Start: 27-60-1984Dvfaw metabolic panel calcium total Gamaliel Vickers [employer] Work Phone: Start: 18-70-2462Ceinvvyizq exam chest 2 viewsGamaliel Vickers Work Phone: Start: 35-05-6264Yxs routine ecg w/least 12 lds trcg only w/o i&rGlorena Vickers [employer] Work Phone: Start: 20-68-1214AMI REPORTHpf ScanningStart: 27-85-8615Eyrnb upper gi w/wo glucagon/delay imges w/o kubGlorena Vickers Work Phone: Start: 89-01-9571MXYEA-19Luis E Sampson Work Phone: Start: 04-98-9050Vrbupwhfgb plantar fasciotomyAimee Walker Start: 67-79-7466Iyrijlstex plantar fasciotomyAimee Valdaezell Comment on above:Endoscopic plantar fasciotomy, right footStart: 09-73-4978HBOA ELBOW ULNAR NERVE DECOMPRESSIONAimee Walker Start: 51-86-8809Rlzlgrjopld observation [Identifier] in Cervix by Cyto Shaq Howard MD Work Phone: [phone]-jzodzuw k2Qzrlslb Aaron Esophagogastrostomy, antesternal or antethoracicAimee Walker ft (qualifier value)Aimee Walker Comment on above:reconstructionft (qualifier value)Jennie Durand H/O: tubal ligationAimee Walker Investigation of transfusion reactionDO Jennie Durand Work Phone: lumbar puncture to lower intracranial pressureRobert Rita Plan of Treatment DateCare ActivityDetailAuthorStart: 25-66-1962Qbuoyk Vaccines (1 of 2)Zoster Vaccines (1 of 2)[facility]: 29-52-4997Ieuupoeq mellitus screeningDiabetes ScreeningUnAdena Regional Medical Center: 72-00-4757Okmrok PCP Team Chronic Disease VisitAnnual PCP Team Chronic Disease VisitGood Samaritan Hospitaltart: 00-23-2080TD Controlled (<130/80)BP Controlled (<130/80)[facility]: 07-03-2025 End: 82-70-1214Iyxvacj encounter qfxxvnqya87/20/2025 1:45 PM EDT Office Visit [facility] [address] [place] [address] Sarah Buckley MD [address] [place] [address] ArrivedSouth [facility] EyeComment on above:ArrivedStart: 31-56-6594Skweso PCP Team Chronic Disease VisitAnnual PCP Team Chronic Disease VisitGood Samaritan Hospitaltart: 50-05-7219JM Controlled (<130/80)BP Controlled (<130/80)[facility]: 06-29-2025 End: 09-95-5896Raomkcp encounter pgbalveaj13/16/2025 11:30 AM EDT [facility] [address] [place] [phone] Aaliyah Francis DO [address] [place] [address] [facility] Surgical AssociatesStart: 06-08-2025 End: 13-97-0533Unpmniu encounter qlxillprj14/25/2025 10:15 AM EDT Office Visit [facility] [address] [facility] [address] [place] [address] Aaliyah Francis, DO [address] [facility] [address] [place] [address] [facility] Surgical AssociatesStart: 05-30-2025 Mammography of left breast specimenMM surgical specimen LTMary Rutan Hospitaltart: 26-05-6699RO Breast specimen - left ViewsMary Rutan Hospitaltart: 21-30-8634YtikgehcvMary Rutan Hospitaltart: 38-80-9033VkcwlecieMary Rutan Hospitaltart: 96-87-1361Dydfhenci [facility] Northtart: 05-01-2025 End: 90-34-8056Hlmswls encounter pjcmwqyye91/18/2025 2:15 PM EDT Office Visit [facility] [address] [place] [address] Aaliyah Francis, DO [address] [address] [facility] AssociatesStart: 04-13-2025 End: 37-49-7550GYW Breast - left diagnosticLeft diagnostic mammogram with tomosynthesis Imaging Routine Pseudoangiomatous stromal hyperplasia of breast Hypertrophy of breast Expected: 04/13/2025, Expires: 06/13/2026[facility] Work Phone: Comment on above:Expected: 04/13/2025, Expires: 06/13/2026Start: 04-13-2025 End: 67-19-8163GF Breast - left limitedLeft breast US limited Imaging Routine Pseudoangiomatous stromal hyperplasia of breast Hypertrophy of breast Expected: 04/13/2025, Expires: 06/13/2026[facility] HealthcareComment on above:Expected: 04/13/2025, Expires: 06/13/2026Start: 04-13-2025 End: 99-94-9245Bdtgaot encounter jjgcyffyn05/31/2025 10:00 AM EDT Consult [facility] [address] [facility] [address] [place] [address] Aaliyah Francis DO [address] [facility] [address] [place] [address] [facility] Surgical AssociatesStart: 49-61-8047Cykghv PCP Team Chronic Disease VisitAnnual PCP Team [facility] VisitA[facility] Start: 39-76-9631LZ Controlled (<130/80)BP Controlled (<130/80)[facility] Start: 15-50-1871Hzzix microalbumin profileDTaP,Tdap,Td Vaccine (1 - Tdap) [facility] Medical CenterComment on above:Postponed from 12/18/2007 (Declined at this time)Start: 07-46-5395Rvrtzw PCP Team Chronic Disease VisitAnnual PCP Team Chronic Disease VisitGood Samaritan Hospitaltart: 25-43-3800Llpbhswy measurement [facility]: 94-04-7893Twumlkmy to Scl-70 measurement [facility]: 91-05-2985Kpjstuyjb complement CH50 levelMary Rutan Hospitaltart: 76-51-2476WQC antibody measurement [facility]: 82-69-1195XvygspzuyMary Rutan Hospitaltart: 10-20-2024 End: 07-18-5404Auwbbuu encounter jfpxjedib81/06/2025 8:40 AM EST Office Visit CYNDI JUDD [address] [place] [address] Mague Fine NP [address] [place] [address] [facility] HAWLEYtart: 10-04-2024 End: 83-24-4921Klnsgnn encounter fhhfapdbi36/21/2025 12:40 PM EST Appointment Radiology MRI [address] [place] [address] MRI BREAST WO/W IVCONRadiology MRIComment on above:MRI BREAST WO/W IVCONStart: 09-27-2024 End: 53-81-6869Slgojuy encounter procedure Az[facility]spinacoulee medical centerComment on above: ArrivedStart: 09-21-2024 End: 59-71-3180BBT 2 ExtremitiesEMG 2 Extremities Neurology Routine Myalgia Expected: 09/21/2024, Expires: 09/21/2025[facility] Work Phone: comment on above:Expected: 09/21/2024, Expires: 09/21/2025Start: 09-21-2024 End: 55-70-3339RH Brain WO and W contrast IVMR brain w and wo contrast routine Imaging Routine Ataxia Expected: 09/21/2024, Expires: 09/21/2025[facility] Comment on above:Expected: 09/21/2024, Expires: 09/21/2025Start: 09-21-2024 End: 29-54-2742Dxggvpadx, serumMyoglobin, serum Lab Routine Myalgia Expected: 09/21/2024 (Approximate), Expires: 09/21/2025[facility] HealthcareComment on above: Expected: 09/21/2024 (Approximate), Expires: 09/21/2025Start: 09-21-2024 End: 63-05-6980Qjncgwl Ab [Titer] in Serum by ImmunofluorescenceANA Lab Routine Myalgia Expected: 09/21/2024 (Approximate), Expires: 09/21/2025[facility] Comment on above:Expected: 09/21/2024 (Approximate), Expires: 09/21/2025Start: 09-21-2024 End: 90-25-0477Bvjzcldffgz [Units/volume] in Serum or PlasmaTSH Lab Routine Myalgia Expected: 09/21/2024 (Approximate), Expires: 09/21/2025[facility] Comment on above:Expected: 09/21/2024 (Approximate), Expires: 09/21/2025Start: 09-19-2024 End: 79-06-5871Ryecrrn encounter agjqpejdv74/06/2025 3:00 PM EST Office Visit [facility] [address] [address] Aleah Howard MD [address] [facility] [address] [place] [address] [facility] centerStart: 09-13-2024 End: 04-37-8804Bwhbysp encounter procedure Azra WallsComment on above:ER Follow upStart: 08-24-2024 End: 91-54-2317wqpzybhdrr59/11/2024 11:20 AM [facility] Medicine [address] [place] [address] [place] [address] [place], [place] [phone] Return in about 4 weeks (around 08/22/2024)Family Medicine Comment on above:Return in about 4 weeks (around 08/22/2024)Start: 08-23-2024 End: 18-70-0133Qxhpjmv encounter procedureUH Azra [facility] medical centerStart: 08-08-2024 End: 87-78-2244WO Heart Perfusion W stress and W radionuclide IVNuclear Stress Test Cardiac Nuclear Medicine Routine Angina pectoris Shortness of breath Palpitations Family history of ischemic heart disease Primary hypertension Expected: 08/08/2024 (Approximate),Expires: 08/08/2025[facility] Service Area Work Phone: Comment on above:Expected: 08/08/2024 (Approximate), Expires: 08/08/2025Start: 08-08-2024 End: 07-14-8355NP Heart TransthoracicTransthoracic Echo Complete Echocardiography Routine Angina pectoris Shortness of breath Palpitations Family history of ischemic heart disease Primary hypertension Expected: 08/08/2024 (Approximate),Expires: 08/08/2026[facility] Work Phone: Comment on above:Expected: 08/08/2024 (Approximate), Expires: 08/08/2026Start: 08-05-2024 End: 76-15-5634jpzvlmjiqpBlwpwjc HealthcareComment on above:Fhx of pancreatic cancer, Phx of pancreatic mass Action taken: Marked in OnBase for Schedulers Start: 07-29-2024 End: 78-82-6683Vlcumgj encounter oqfbnpikz51/15/2024 2:40 PM EST Office Visit Family Medicine [address] [place] [address] [place] [address] [place] [address] Return in about 4 weeks (around 07/29/2024)Family Medicine Comment on above:Return in about 4 weeks (around 07/29/2024)Start: 07-27-2024 End: 15-88-3617Lkmmptk encounter uuwfbjeqp13/13/2024 11:30 AM EST [facility] [address] [place] [address] Kiera Gilmore DO [address] [place] [address] Teresa David, 07/27/24, 1130am, ty per emailBreast CenterComment on above:Teresa David, 07/27/24, 1130am, ty per emailStart: 07-26-2024 End: 49-68-6943kfvwfrbxin04/12/2024 8:45 AM EST Results Only [facility] [address] [place] [address] Iron deficiency anemia, unspecified iron deficiency anemia type [ D50.9][facility] LaboratoryComment on above:Iron deficiency anemia, unspecified iron deficiency anemia type [D50.9]Start: 07-25-2024 End: 59-34-8444Nyztbhr encounter wnvifjpbh28/11/2024 3:00 PM EST Office Visit Family Medicine [address] [place] [address] [place] [address] [place] [address] H f/uFamily MedicineComment on above:H f/uStart: 07-25-2024 End: 88-90-0844BEY W Auto Differential panel - BloodCOMPLETE BLOOD COUNT AND DIFFERENTIAL Lab Routine Iron deficiency anemia, unspecified iron deficiency anemia type Expected: 07/25/2024, Expires: 10/24/2024[facility] ClinicComment on above:Expected: 07/25/2024, Expires: 10/24/2024Start: 07-25-2024 End: 96-04-7468Ktnqxcmd [Mass/volume] in Serum or PlasmaFERRITIN Lab Routine Iron deficiency anemia, unspecified iron deficiency anemia type Expected: 07/25, Expires: 10/24/2024[facility] Work Phone: Comment on above:Expected: 07/25/2024, Expires: 10/24/2024Start: 07-25-2024 End: 34-59-0057Wzwq and Iron binding capacity panel - Serum or PlasmaIRON AND TIBC Lab Routine Iron deficiency anemia, unspecified iron deficiency anemia type Expected:07/25/2024, Expires: 10/24/2024[facility] ClinicComment on above: Expected: 07/25/2024, Expires: 10/24/2024Start: 07-11-2024 End: 74-66-0452Ksyyowl encounter mufwtimrj92/28/2024 8:30 AM EDT Appointment Mammography [address] [place] [id number] lt breast us core bxMammographyComment on above:lt breast us core bxStart: 07-04-2024 End: 47-35-0283Vkwelsi encounter procedureBemidji Medical CenterComment on above: 11:30A IMAGING; Breast lump with pain x 1 yr; imaging done at [facility](pt hand caring images); Bx recommended by PCP; blood nipple discharge- spontaneous- last noticed 8 months agoBreast lump with pain x 1 yr; imaging done at [facility](pt hand caring images); Bx recommended by PCP; blood nipple discharge- spontaneous- last noticed 8 months agoStart: 07-01-2024 End: 925733-arplugmjhviwup D3 [Mass/volume] in Serum or PlasmaVITAMIN D 25 HYDROXY Lab Routine Serum calcium elevated Expected: 07/01/2024, Expires: 09/30/2024[facility] ClinicComment on above:Expected: 07/01/2024, Expires: 09/30/2024Start: 07-01-2024 End: 64-27-0892Lwcvpdzprxvag metabolic 2000 panel - Serum or PlasmaCOMPREHENSIVE METABOLIC PANEL Lab Routine Serum calcium elevated Expected: 07/01/2024, Expires: 09/30/2024[facility] ClinicComment on above:Expected: 07/01/2024, Expires: 09/30/2024Start: 07-01-2024 End: 85-90-3244Odpwltcahm.intact [Mass/volume] in Serum or PlasmaPTH INTACT Lab Routine Serum calcium elevated Expected: 07/01/2024, Expires: 09/30/2024 [facility] ClinicComment on above:Expected: 07/01/2024, Expires: 09/30/2024Start: 07-01-2024 End: 48-70-2879Fessqgq encounter aajtmsdtc87/18/2024 11:00 AM EDT Office Visit Family Medicine [address] [place] [address] [place] [address] [place] [address] est care. Updated PCP per navigation rules.Family Medicine Comment on above:est care. Updated PCP per navigation rules.Start: 05-31-2024 End: 00-50-5872Wozcaen encounter yzrucmhoo36/17/2024 11:00 AM EDT Office Visit Family Medicine [address] [place] [address] Lisha Bianchi, AIRBORNE SENSOR SPECIALIST.HEAD TURNING MACHINE OPERATOR [address] [place] [address] ED follow upFamily MedicineComment on above:ED follow upStart: 05-24-2024 End: 86-33-5588Lhifeth encounter wmhgywawv22/10/2024 11:15 AM EDT Office Visit Endocrinology [address] [place] [address] Austin Leon, AIRBORNE SENSOR SPECIALIST.HEAD TURNING MACHINE OPERATOR [address] [place] [address] Class 1 obesity due to excess calories without serious comorbidity with body maEndocrinologyComment on above:Class 1 obesity due to excess calories without serious comorbidity with body maStart: 93-61-6384CRCDF-19 Vaccine ()COVID-19 Vaccine ()[facility]Start: 52-41-5826YHHJX-19 Vaccine ()COVID-19 Vaccine ()[facility]: 85-57-4764Spgtpntzv vaccinationGood Samaritan Hospitaltart: 03-01-2024 End: 35-75-9796Qahvoaj encounter /18/2024 11:20 AM EDT Appointment Radiology [address] [place], [place] [phone] MRI Panc/Tanmay Wo/W IvconRadiologyComment on above:MRI Panc/Tanmay Wo/W IvconStart: 01-06-2024 End: 60-14-9858txvrhyzxhi06/24/2024 8:30 AM EDT Results Only [facility] [address] [place] [address] [facility]St[facility] LaboratoryStart: 01-04-2024 End: 52-36-6465JHJ panel - Blood by Automated countCOMPLETE BLOOD COUNT Lab Routine Routine health maintenance Expected: 01/04/2024, Expires: 04/04/2024 [facility] Work Phone: Comment on above:Expected: 01/04/2024, Expires: 04/04/2024Start: 01-04-2024 End: 80-25-3105Axcelnhqbskpr metabolic 2000 panel - Serum or PlasmaCOMPREHENSIVE METABOLIC PANEL Lab Routine Routine health maintenance Expected: 01/04/2024, Expires:04/04/2024[facility] ClinicComment on above:Expected: 01/04/2024, Expires: 04/04/2024Start: 01-04-2024 End: 26-73-5199Cmvprhmgor A1c in BloodHEMOGLOBIN A1C Lab Routine Routine health maintenance Expected: 01/04/2024, Expires: 04/04/2024[facility] ClinicComment on above:Expected: 01/04/2024, Expires: 04/04/2024Start: 01-04-2024 End: 15-44-5209Imtihvgcc C virus Ab [Presence] in SerumHEPATITIS C ANTIBODY IA WITH CONFIRMATION Lab Routine Routine health maintenance Expected: 01/04/2024, Expires: 04/04/2024[facility] ClinicComment on above:Expected: 01/04/2024, Expires: 04/04/2024Start: 01-04-2024 End: 89-75-8918LEV 1+2 Ab [Presence] in Serum or Plasma by ImmunoassayHIV 1/2 COMBO WITH REFLEX TO DIFFERENTIATION Lab Routine Routine health maintenance Expected: 01/04/2024, Expires: 04/04/2024[facility] ClinicComment on above: Expected: 01/04/2024, Expires: 04/04/2024Start: 01-04-2024 End: 44-53-7955Zbqtl 1996 panel - Serum or PlasmaLIPID PANEL BASIC Lab Routine Routine health maintenance Expected: 01/04/2024, Expires: 04/04/2024[facility] ClinicComment on above:Expected: 01/04/2024, Expires: 04/04/2024Start: 21-33-1632KtemjzozmMary Rutan Hospitaltart: 09-18-2023 End: 07-01-7522Ald transoral biopsy single/multipleEGD BIOPSY Gastroesophageal reflux disease, unspecified whether esophagitis present Obesity (BMI 30-39.9) 09/18/2023 8:14 AM [facility] CenterStart: 96-35-5531IABOP-19 Vaccine ()COVID-19 Vaccine ( season)[facility]Start: 20-42-3219Uminmqddp vaccinationInfluenza Vaccine (#1) [facility]: 49-62-4007Aptbegqvi vaccinationFlu vaccine (#1)[facility]ENTERStart: 50-52-1497Cybqsrfwnysjq fluid cultureMary [facility]an Hospitaltart: 08-19-2022 End: 54-41-1229QigejybhqMary [facility] Hospitaltart: 95-87-5225KugehprnxMary [facility] Hospitalt[facility]: 52-95-6648Ibwqcjn [Mass/volume] in Cerebral spinal fluidMary Rutan Hospitaltart: 00-15-0756Okpjjft [Mass/volume] in Cerebral spinal fluidKettering Health Miamisburg CenterStart: 08-12-2022 [facility] CenterStart: 69-12-9737Edygprcp admissionMary [facility] Hospitaltart: 76-38-4855Hfsicvcw to neurologistMary [facility]an Hospitaltart: 69-19-2156RhcewyjwdMary [facility]an Hospitaltart: 64-01-7119Zifeidcke vaccinationGood Samaritan Hospitaltart: 34-80-1078MROAZ-19 VACCINE (3 - Booster for Pfizer series)COVID-19 VACCINE (3 - Booster for Pfizer series) [facility]: 17-19-0318GPGTIIIUGX ASSESSMENTDEPRESSION ASSESSMENT [facility]: 50-83-4139EWNJV-19 VACCINE (3 - Booster for Pfizer series)COVID-19 VACCINE (3 - Booster for Pfizer series)[facility]: 36-12-1796Csyjj-19 Vaccine (3 - Pfizer series)Covid-19 Vaccine (3 - Pfizer series)[facility]: 03-06-2021 End: 72-05-0552Fqwwskz encounter eegitseoa64/23/2021 Office Visit Bariatrics Gamaliel Vickers DO [address] [facility] [address] [place] [phone] [facility] Invasive Bariatric SurgStart: 02-20-2021 End: 82-79-3648Ypysxzi encounter ojnriffmw06/09/2021 Office Visit Bariatrics Gamaliel Vickers DO [address] [facility] [address] [place] [address] [facility] BARIATRIC [facility] HospitalStart: 01-18-2021 End: 80-81-9525Kamrkw Visit01/18/2021 Office Visit Bariatrics Gamaliel Vickers, [address] [facility] [address] [place] [address] Cyndie Vick Invasive Bariatric SurgStart: 01-07-2021 End: 57-95-1305Pcscvqxd EncounterSTVZ ORComment on above:XI LAPAROSCOPIC ROBOTIC GASTRIC BYPASS TIAN-EN-Y, LIVER BIOPSY, EGD- GI UNIT SCHEDULED.Start: 01-03-2021 End: 02-91-1726Shpnxv VisitCurry [facility] Hospital Invasive Bariatric SurgComment on above: ArrivedStart: 12-31-2020 End: 44-09-8736SPWNA-COVID- Lab Routine Preop testing Expected: 12/31/2020, Expires: 12/31/2021[facility] batterii Work Phone: comment on above:Expected: 12/31/2020, Expires: 12/31/2021tart: 11-21-2020 End: 41-57-6753Clgwtu Visit11/21/2020 Office Visit Bariatrics Ganesh Cordero, AIRBORNE SENSOR SPECIALIST - HEAD TURNING MACHINE OPERATOR [address] [facility] [address] [place] [address] [facility] BAR[facility]ATRIC Part [facility]: 11-01-2020 End: 15-40-9920Oydowjnnozi64/18/2021 Appointment Radiology Radiologist [facility] RadiologyStart: 10-24-2020 End: 34-74-4866Vuyxnl [facility] BARIATRIC Part [facility] Start: 98-02-8632Ufqirf Wellness Visit (AWV)Annual Wellness Visit (AWV)[facility] CenterSAJIStart: 81-96-0438LWV TESTINGHPV TESTINGGood Samaritan Hospitaltart: 32-27-0678Zguiqbokk for malignant neoplasm of cervixB[facility]OU[facility] Start: 94-84-0656Xzrrvtjsb for malignant neoplasm of cervixBluffton HospitalStart: 18-02-2166JToL/Tdap/Td Vaccines (1 - Tdap)DTaP/Tdap/Td Vaccines (1 - Tdap)[facility]: 66-01-1891CGI TESTING PAP TESTINGGood Samaritan Hospitaltart: 13-37-1648Jfhivbnni for malignant neoplasm of cervixCar[facility] Clinic St[facility]: 51-25-9362HOvI/Tdap/Td vaccine (1 - Tdap) DTaP/Tdap/Td vaccine (1 - Tdap)[facility]: 12-18-2007 Pneumococcal vaccinationPneumococcal Vaccine (1 of 2 - PCV)[facility] Start: 00-39-6011Usnlvmaenzzr Vaccine: Pediatrics and At-Risk Adult Patients (1 of 2 - PCV)Pneumococcal Vaccine: Pediatrics and At-Risk Adult Patients (1 of 2 - PCV)[facility]: 34-47-0326Ipwla microalbumin profileGood Samaritan Hospitaltart: 69-26-0314HFIQBT PCP TEAM CHRONIC DISEASE VISIT ANNUAL PCP TEAM CHRONIC DISEASE VISITGood Samaritan Hospitaltart: 78-10-2240CH CONTROLLED (<130/80)BP CONTROLLED (<130/80)[facility]: 2006 HEPATITIS C SCREENINGHEPATITIS C SCREENINGGood Samaritan Hospitaltart: 2006 Hepatitis C screeningCarilion Clinic St. [facility]: 00-79-4813WWL SCREENINGHIV SCREENINGGood Samaritan Hospitaltart: 37-95-8906SNP screeningHIV ScreeningGood Samaritan Hospitaltart: 13-49-2959UQJDK-19 Vaccine (1)COVID-19 Vaccine (1)[facility] Phone: start: 71-86-3333VEF screeningHIV screenCarilion Clinic St. [facility]: 36-33-8587Ntvgecsth vaccinationVaricella Vaccines (1 of 2 - 13+ 2-dose series)[facility]: 39-99-6448Eepzj depression screening assessmentDEPRESSION SCREENINGGood Samaritan Hospitaltart: 46-85-0893AMLYW-19 Vaccine (1)COVID-19 Vaccine (1)[place] Phone: start: 86-18-0921Bwrwqksjxv MonitoringDepression MonitoringCarilion Clinic St. [facility]: 13-54-1653Rwhiwlkpk B Vaccine (2 of 3 - 3-dose series)Hepatitis B Vaccine (2 of 3 - 3-dose series)[facility] Start: 18-50-8176Ognktnnpl B Vaccines (2 of 3 - 3-dose series)Hepatitis B Vaccines (2 of 3 - 3-dose series)[facility]: 42-96-8360CWXZCUXTFOXI (1 - PCV)PNEUMOCOCCAL (1 - PCV)[facility]: 68-32-5238Lxmwbfmjqcjo 0-64 years Vaccine (1 - PCV)Pneumococcal 0-64 years Vaccine (1 - PCV)[facility]: 51-39-4458Lqqgmsnywwsi vaccinationGood Samaritan Hospital[facility]: 95-49-4769Mgplonzhtvli Vaccine: Pediatrics (0 to 5 Years) and At-Risk Patients (6 to 64 Years) (1 of 2 - PCV)Pneumococcal Vaccine: Pediatrics (0 to 5 Years) and At-Risk Patients (6 to 64 Years) (1 of 2 - PCV)[facility]: 95-00-5608Dmnojpkkz vaccine (1 of 2 - 2-dose childhood series)Varicella vaccine (1 of 2 - 2-dose childhood series) [facility]: 98-18-8880NBAUEIXRM B (1 of 3 - 3-dose series) HEPATITIS B (1 of 3 - 3-dose series)[facility]: 10-18-3311Iifefdclj B Vaccine (1 of 3 - 3-dose series)Hepatitis B Vaccine (1 of 3 - 3-dose series) [facility]: 87-99-1936Uiiwmbwik C screeningHepatitis C [facility]: 73-92-0806TBT screeningHIV ScreeningUnAdena Regional Medical Center: 27-75-5535Qnqua panelLipid PanelKn[facility] Community Hospital: 04-05-1989Medicare Annual Wellness (AWV)Medicare Annual Wellness (AWV)[facility]: [facility]1989Medicare Annual Wellness VisitMedicare Annual Wellness Visit (AWV)[facility] hour urine measurementMercy Memorial HospitalAdenosine monophosphate.cyclic [Moles/volume] in Serum or PlasmaMercy Memorial HospitalAlbumin [Mass/volume] in Serum or PlasmaMercy Memorial Hospital Albumin/Globulin ratioMercy Memorial HospitalBacteria identified in Unspecified specimen by Aerobe cultureThe [facility] Work Phone: Bacteria identified in Unspecified specimen by Anaerobe cultureThe [facility] Work Phone: Basic Metabolic Panel w/ Reflex to MGBasic Metabolic Panel w/ Reflex to MG Lab Routine Daily until discontinued starting 02/01/2021, 1 completedAdams County HospitalToday Tix Work Phone: comment on above:Daily until discontinued starting 02/01/2021, 1 completedBeta 2 glycoprotein 1 IgG Ab [Units/volume] in Serum Mercy Memorial HospitalBeta 2 glycoprotein 1 IgM Ab [Units/volume] in SerumMercy Memorial Hospital End: 07-53-3465Tfsgk glucose - POCTBlood glucose - POCT Point of Care Testing Routine One Time for 1 Occurrences starting 09/18/2023 until 4B[facility] HOSPITALMiromatrix Medical [facility]ITALCom[facility] on above:One Time for 1 Occurrences starting 09/18/2023 until 4CANNABINOID CONF, URCANNABINOID CONF, UR Lab Routine Panic disorder 01/04/2024 10:20 AM EDTCleveland ClinicCardiolipin IgA Ab [Units/volume] in Serum by ImmunoassayMercy Memorial Hospital Cardiolipin IgG Ab [Units/volume] in Serum by ImmunoassayMercy Memorial HospitalCardiolipin IgM Ab [Units/volume] in Serum by ImmunoassayMercy Memorial HospitalCell count, cerebrospinal fluidKettering Health Miamisburg Ctr Work Phone: Centromere protein B Ab [Units/volume] in Serum [facility] Memorial HospitalCerebrospinal fluid examinationThe [facility]vue Hospital Work Phone: Chromatin Ab [Units/volume] in Serum or Plasma [facility] HospitalComplement C3 [Mass/volume] in Serum or Plasma [facility] HospitalComplement C4 [Mass/volume] in Serum or Plasma [facility] HospitalContinuous pulse oximetryPulse oximetry, continuous Respiratory Care Routine Every 4hr until discontinued starting 01/07/2021[facility] HospitalToday [facility] Work Phone: comment on above:Every 4hr until discontinued starting 01/07/2021 End: 14-66-0042NTYGY-19COVID-19 Lab Routine Preoperative testing 1 Occurrences starting 10/26/2020 until 10/26/2020[facility] Work Phone: comment on above:1 Occurrences starting 10/26/2020 until 10/26/2020OVID-19[facility] Work Phone: End: 24-21-6945LYXWQ-19COVID-19 Lab Routine Preop testing 1 Occurrences starting 01/03/2021 until 01/03/2021[facility] Work Phone: comment on above:1 Occurrences starting 01/03/2021 until 01/03/2021BT Breast - bilateral diagnostic for implantMAM DIAG W AV BILATERAL Radiology Routine Mass of upper outer quadrant of left breast 07/04/2024 11:[address] [facility] Work Phone: ecg COMPLETEECG COMPLETE ECG Routine Chest pain, unspecified type Palpitations Ordered: 07/01/2024[facility] Work Phone: Comment on above:Ordered: 07/01/2024Electrophoresis: slqjb-0-wrhbpihmNpnvnzossMercy Memorial HospitalElectrophoresis: tjnmc-4-txcdyzgmMsedwdgngMercy Memorial HospitalElectrophoresis: beta-globulin [facility] HospitalElectrophoresis: gamma globulinMercy Memorial HospitalEvaluation of cerebrospinal fluidThe [facility] Work Phone: Fluid sample volume measurementThe [facility] Work Phone: Globulin [Mass/volume] in SerumMercy Memorial HospitalGlucose [Mass/volume] in Cerebral spinal fluidThe [facility]vue Hospital Work Phone: Histone IgG Ab [Units/volume] in Serum by Immunoassay [facility] HospitalHomogenous nuclear Ab pattern [Titer] in Serum [facility] Memorial HospitalIgA [Mass/volume] in Serum or PlasmaMercy Memorial HospitalIgG [Mass/volume] in Serum or PlasmaMercy Memorial HospitalIgM [Mass/volume] in Serum or [facility] HospitalImmunofixation for UrineMercy Memorial Hospital End: 94-60-3499YHHLWLJY PACU OXYGEN THERAPY PROTOCOLInitiate PACU Oxygen Therapy Protocol Respiratory Care Routine Continuous until discontinued starting 09/18/2023ON [facility]AMISBURGComment on above:Continuous until discontinued starting 09/18/2023Jo-1 extractable nuclear Ab [Units/volume] in SerumMercy Memorial HospitalLupus anticoagulant [Interpretation] in Platelet poor plasmaMercy Memorial HospitalMeasurement of monoclonal protein concentrationMercy Memorial HospitalMeningitis+Encephalitis pathogens DNA and RNA panel - Cerebral spinal fluid by JOSÉ MIGUEL with non-probe detection [facility] Work Phone: Microscopic observation [Identifier] in Unspecified specimen by Gram stainKettering Health Miamisburg Ctr Work Phone: End: 05-81-6310IT Breast - bilateral WO and W contrast IVMRI BREAST WO/W IVCON BILATERAL Radiology Routine Mass of upper outer quadrant of left breast Fibroc ystic breast changes of both breasts Mastodynia Inversion of left nipple Bloody discharge from leftnipple Nipple discharge 1 Occurrences starting 07/04/2024 until 08/03/2025[facility] Work Phone: Comment on above:1 Occurrences starting 07/04/2024 until 08/03/2025 End: 14-55-5657UO Breast - left WO and W contrast IVMRI BREAST BX WO/W IVCON LEFT Radiology Routine Mass of upper outer quadrant of left breast 1 Occurrences starting 03/08/[address] [facility] Work Phone: Comment on above:1 Occurrences starting 03/08/2024 until 04/07/2025 End: 19-04-8120Qal head w/o & w/contrast materialMRV BRAIN WO/W IVCON Radiology Routine Idiopathic intracranial hypertension 1 Occurrences starting 11/20/[address] [facility] Work Phone: comment on above:1 Occurrences starting 11/20/2022 until 12/20/2023Myoglobin [Mass/volume] in Serum or PlasmaMercy Memorial HospitalNebulizer therapyHHN Treatment Respiratory Care Routine TID until discontinued starting 01/07/2021[facility] Work Phone: comment on above:TID until discontinued starting 01/07/2021Nuclear Ab [Titer] in SerumMercy Memorial HospitalNucleated cells [#/volume] in Cerebral spinal fluid by Manual countKettering Health Miamisburg Ctr Work Phone: Oxygen therapy [Minimum Data Set][place] Comment on above:Daily until discontinued starting 09/28/2020ail until discontinued starting 01/07/2021ail until discontinued starting 01/31/2021 Oxygen therapy [Minimum Data Set]Initiate Oxygen Therapy Protocol Respiratory Care Routine As Needed until discontinued starting 09/18/2023ON [employer] Work Phone: comment on above:As Needed until discontinued starting 09/18/2023atient EducationKettering Health Miamisburg Ctr Work Phone: Patient referralKettering Health Miamisburg Ctr Work Phone: Phase I & II - metered glucosePhase I & II - metered glucose Point of Care Testing Routine As Needed until discontinued starting 09/28/2020[facility] HospitalSavtira Corporation, [place]Comment on above:As Needed until discontinued starting 09/28/2020 End: 91-31-6224Ybzwadave, urine POCTPregnancy, urine POCT Point of Care Testing Routine One Time for 1 Occurrences starting 09/28/2020 until 09/28/2020[facility] HospitalSavtira Corporation, [place]Comment on above:One Time for 1 Occurrences starting 09/28/2020 until 09/28/2020 End: 38-44-2430Sibuvpiit, urine POCTPregnancy, urine POCT Point of Care Testing Routine One Time for 1 Occurrences starting 09/18/2023 until 4BON N[employer] TechnologiesComment on above:One Time for 1 Occurrences starting 09/18/2023 until 4Protein [Mass/volume] in Cerebral spinal fluid [facility] Work Phone: Protein [Mass/volume] in Serum or PlasmaMercy Memorial HospitalProtein [Mass/volume] in UrineMercy Memorial HospitalReagin Ab [Presence] in Serum by RPMercy Health St. Joseph Warren HospitalRed blood cell countKettering Health Miamisburg Ctr Work Phone: Rheumatoid factor [Units/volume] in Serum or Plasma [facility] Hospitalerum immunofixationMary Rutan Hospitaljogrens syndrome-A extractable nuclear Ab [Units/volume] in Serum [facility] Hospitaljogrens syndrome-B extractable nuclear Ab [Units/volume] in SerumMary Rutan Hospitalmith extractable nuclear Ab [Units/volume] in [facility] CompanyPECIMEN VALIDITY, URINESPECIMEN VALIDITY, URINE Lab Routine Panic disorder 01/04/2024 10:20 AM EDTClevelunc health rex holly springs ClinicSpirometry panelIncentive spirometry Respiratory Care Routine Every 2hr while awake until discontinued starting 01/07/2021[facility] Work Phone: comment on above:Every 2hr while awake until discontinued starting 01/07/2021urgical PathologySurgical Pathology Lab Routine Release Upon Ordering for 1 Occurrences starting 09/28/2020[facility], [place] Comment on above:Release Upon Ordering for 1 Occurrences starting 09/28/2020 SURGICAL PATHOLOGYTri[facility] Work Phone: Comment on above:Release Upon Ordering for 1 Occurrences starting 07/11/2024, 1 completedThrombin timeMercy Memorial HospitalUS Breast - left limitedUS BREAST LTD LEFT Radiology Routine Mass of upper outer quadrant of left breast 07/04/2024 12:13 PM EDTCWadsworth-[facility]ittman [facility] Immunizations Immunization DateImmunizationNotesCare PblkwnutDelgbmlz18-44-2992PALJ-IyQ-7 (COVID-19) mRNA BNT-162b2 Gifty Walker [phone]-DsnnaRegional Medical Center Primary Care [id number]-WxV-9 (COVID-19) mRNA BNT-162b2 vax Aimee Walker [phone]-SzczoRegional Medical Center Primary Care [id number] virus vaccine, unspecified formulationSaileen Alvarez MD Work Phone: cSt. Vincent HospitalFeoqbo64-09-0222xqvkkptdt nasal, unspecified formulationTrevor Baires DO Work Phone: [facility] CenterVgxbnv98-23-4446kbdewrjuh virus vaccine, unspecified formulationZhaneletha Valadezell [phone]-LhqdhRegional Medical Center Primary Care 10801425-27-8288lwkwkeffj, injectable, quadrivalent, preservative freeTrevor Baires DO Work Phone: [facility] CenterMfhaei06-57-0287pluajbonf B vaccine, pediatric or pediatric/adolescent dosageTrevor Baires DO Work Phone: [facility] CenterAvttju08-48-8870yjfmhqh, mumps and rubella virus vaccineTrevor Baires DO Work Phone: [facility] CenterNEGATED: Highlighted row has not occurred!10-28-2917jdiyxaqwa virus vaccine, unspecified formulationZhaneletha Valadezell [phone]-FbmljRegional Medical Center Primary Care Payers DatePayer CategoryPayerPolicy [id number] 2024Medicare (Managed Care)[id number] [id number] MEDICAID [facility] MEDICAID [id number] 2021-Present [phone] [address] [place] [address] [id number] 2022Medicaid [id number] 2022MedicareHUMANAMedicareHUMANA MEDICARE HUMANA MEDICARE PPO [id number] 2021-[facility] [phone] [address] [address] [place] [address] [id number] 2021Medicare [id number] [id number] 2018Medicare 1.2.840.842140.1.13.159.2.7.3.560011.315 [id number] 2..1.935673.3.579.2.03021-86-3862Wwhqhlg27843392 2..1.109557.3.579.2.44524-11-1811Slvadvl816504013 2..1.433975.3.579.2.56629-65-5091Akuwkrg1014756 2.0.1.227108.3.579.2.20094-35-5896Dvzwkyt5289216 2.0.1.136477.3.579.2.15010-84-5469Obybsuy0364173 2.0.1.965175.3.579.2.20998-88-9841Mpzwcxq9320685 2.0.1.381911.3.579.2.35146-45-0704Bngtcpm7297917 2.16.840.1.260428.3.579.2.53509-73-8247Pywfxtt6322201 2.16840.1.460703.3.579.2.92465-60-9363Vxtchem1028228 2.16840.1.321665.3.579.2.08048-58-3798Euckquy6777000 2.16840.1.822126.3.579.2.25213-59-2140Lqrocgl5272474 2.16840.1.623433.3.579.2.15320-46-9579Jkixfwo5940773 2.0.1.368522.3.579.2.69176-65-2774Yyucngo5141177 2.840.1.144314.3.579.2.89487-48-4644Pqybwel93588808 2.0.1.383151.3.579.2.03903-79-6646Lnivwfv61519509 2.0.1.345699.3.579.2.52995-29-5766Rlfpzci81223990 2.0.1.415288.3.579.2.33792-46-3887Jfoqekw11476807 2..1.039038.3.579.2.33865-89-6651Haukyuy97225256 2.840.1.931874.3.579.2.15180-99-7181Yftrsdm49254666 2.160.1.496143.3.579.2.92604-81-7526Obdtdkv75331694 2.16840.1.467974.3.579.2.34302-99-1034Irypsph39140026 2.840.1.361380.3.579.2.32898-29-6215Desummk71416803 2.16.840.1.740261.3.579.2.12952-30-6922Qdcmetj31032617 2.16.840.1.710245.3.579.2.87242-23-0666Jomaaxx06738768 2.16.840.1.676392.3.579.2.43128-49-6798Hxkgwve77136430 2.16840.1.135711.3.579.2.356427-84-6939Mlngkba11700021 2.16840.1.165689.3.579.2.25150-45-3797Uiarbhe44534276 2.16840.1.953709.3.579.2.19025-29-2442Hfasrqe34304726 2.840.1.673185.3.579.2.88625-52-2506Vywxwen99797225 2.16840.1.654689.3.579.2.71612-10-1683Tqweixi72709121 2.840.1.759945.3.579.2.77351-48-6524Jvnqzip276151629 2.16840.1.726457.3.579.2.77226-99-5015Rfqfigv686043643 2.840.1.271291.3.579.2.345238-49-3287Wbgnakf90142436 2.16.840.1.744412.3.579.2.26826-44-9446Koxgzpy25398909 2.16840.1.738355.3.579.2.17188-57-1289Nnrvouy94305671 2.16840.1.561951.3.579.2.31195-39-9086Fhuchfs67801274 2.16840.1.163117.3.579.2.24787-92-2736Bmcsyfo21018670 2.16.840.1.953979.3.579.2.87979-09-1690Xvgtvuv77676083 2.16.840.1.077003.3.579.2.90714-23-3332Fdppmdw80997301 2.16.840.1.554558.3.579.2.13303-77-3850Pirspsw55844128 2.16840.1.554874.3.579.2.56332-70-9452Mkdxnbt73177618 2.16840.1.208792.3.579.2.20558-29-1941Nmuamjs58206543 2.840.1.239577.3.579.2.66460-49-0942Rvbsyfo79540134 2.840.1.918886.3.579.2.43760-83-2553Zgmgoie28102689 2.840.1.390274.3.579.2.53246-81-3873Aabphld54184631 2.16840.1.244872.3.579.2.41619-16-3515Bcehilv89659086 2.16840.1.225505.3.579.2.05836-19-8364Qzyqebu81012935 2.16840.1.160246.3.579.2.15129-48-2818Laclsvp90821840 2.16840.1.547556.3.579.2.19163-75-5029Kckhrnf99289663 2.16.840.1.581415.3.579.2.49337-93-5966Fligvzh63010467 2.16840.1.045737.3.579.2.82504-81-7458Zpzklby12126059 2.16840.1.624665.3.579.2.23833-36-7778Ybczmwp07401450 2.16840.1.323990.3.579.2.96081-35-8532Hgpdikn89330579 2.16840.1.534972.3.579.2.69732-76-4172Ewnaxhw04350514 2.840.1.494146.3.579.2.873680-74-1276Lvksutz55040702 2.0.1.391279.3.579.2.225843-93-1441Sedaufn40587842 2.840.1.770190.3.579.2.510142-50-5317Ybkurhu08841184 2.0.1.053891.3.579.2.104693-83-6519Ihxtvvs37598356 2.0.1.243591.3.579.2.281844-92-1379Muzdheh09037627 2..1.071459.3.579.2.141963-36-4841Jjxvphd6813861 2.840.1.479236.3.579.2.809556-21-7665Mlyrpxt7128545 2.0.1.971416.3.579.2.783258-28-9839Qvpdqbi61801101 2.840.1.567285.3.579.2.91680-35-2801Hxrfxnc03362354 2.840.1.260552.3.579.2.81350-46-2231Arnlgae66475709 2.840.1.317477.3.579.2.84099-28-0272Yycmqzg31604509 2.840.1.398069.3.579.2.60368-51-4794Brqcvrw65113131 2..1.057838.3.579.2.56030-00-5748Swdmxnl42945591 2..1.229717.3.579.2.92894-86-4553Murgptf24239391 ..1.766610.3.579.2.727 [id number] 1..662022.1.13.239.2.7.3.120166.18919-31-0330Vjeqbhu Health Insurance [id number]-ffv [id number] Health KbdtgyjqfAJMJ15RA 8m76259e-44xx-1cmj-58m9-5k8m94i7nf64Efiwcdq38883059 .1.359339.3.579.2.435Stwpdph27160763 ..1.115277.3.579.2.531 Mnodvdo22592279 ..1.705879.3.579.2.625Hghpcao35740030 .1.051996.3.579.2.040Phfvfph89979712 ..1.490840.3.579.2.531 Knppjbw41782841 2..1.668780.3.579.2.771Juzblry43756209 2..1.781171.3.579.2.627Jrnwnbn18817821 2..1.745977.3.579.2.531 Wpunfrc84715618 2..1.376232.3.579.2.531 Social History DateTypeDetailFacilityStart: 09-28-2020 End: 35-36-7236Zzarfkx smoking status [place]ISFormer sm[place] Start: 08-12-2022 End: 17-85-2986Tamxlxa of tobacco useCurrent smokerW[place], [place]Start: 09-28-2020 End: 06-23-3051Fmwclmv use and exposureNever usedOhioHealth Shelby Hospitalart: 09-28-2020 End: 79-13-0699Obylxfn intakeCurrent drinker of alcohol (finding)[facility]art: 09-28-2020 End: 13-72-5345Ptkjwkj SDOH Alcohol Pumntmslb0Dhuc[address] [place], [place] [address]art: 82-07-1038Ztmdeyg CommentraBerger Hospitalart: 05-01-9517Pbg Assigned At BirthNot on fileMain Campus Medical Center: 12-16-2021 End: 30-26-0742Tlcolzvj to SARS-CoV-2 (event)Not [place] End: 79-27-8174Bnnbyxz of tobacco useCigarette SmokerWexner Medical Center Work Phone: start: 97-66-0327Rknfnpq CommentraFulton County Health Center Work Phone: start: 12-26-2021 End: 46-61-2634Mxfslix smoking status NHISSmokes tobacco dailyAdena [facility] Center Start: 12-26-2021 End: 24-28-3040Uepgepzjxp smoked current (pack per day) - Hibawcxm2Rfhcohify ClinicStart: 30-16-0084Agmckdw SDOH Alcohol Commentbeer and wine once a month [facility]: 07-01-2021 End: 97-82-6403Avegwnr smoking statusHeavy tobacco smoker (finding)[facility] Start: 20-83-4604Totetxu smoking statusNeverGuernsey Memorial Hospital [facility] Start: 07-03-2022 End: 58-13-4560Egq Assigned At [facility] Start: 20-31-6063Ruj Assigned At [facility] ClinicStart: 67-39-9447Idvkqem SDOH Alcohol Uumhbvnwx0Ffypgvsfk ClinicStart: 75-74-2313Cihkwcd SDOH Alcohol Std Vbuydv0Koggkpzsj ClinicStart: 07-03-2022 History SDOH Social Connections Get Lgmvafmf5Qswwxmhml ClinicStart: 07-03-2022 History SDOH Social Connections Onrplb6Bkvyclkyi ClinicDo you belong to any clubs or organizations such as judaism groups, unions, [employer] or athletic joyce ups, or school groups?NoCaultman hospital ClinicAre you now , , , , never or living with a partner?MarriedAdena Pike Medical CenterHow often to you have a drink containing alcohol?4 or more times a weekAdena Pike Medical CenterHow many standard drinks containing alcohol do you have on a typical day?7 to 9CSt. Vincent HospitalHow often do you have 6 or more drinks on 1 occasion?Daily or almost dailyCleBlanchard Valley Health SystemHow hard is it for you to pay for the very basics like food, housing, medical care, and heatingNot very hardAdena Pike Medical CenterDo you feel stress - tense, restless, nervous, or anxious, or unable to sleep at night because yourmind is troubled all the time - these days [OSQ]To some extent [facility](I/We) worried whether (my/our) food would run out before (I/we) got money to buy more.Sometimes trueAdena Pike Medical CenterThe food that (I/we) bought just didn't last, and (I/we) didn't have money to get more.Never trueGood Samaritan Hospitaltart: 90-66-6480Ilwmtc identityIdentifies as female gender (finding) [facility]: 05-32-6042Hkmafl orientationHeterosexual (finding) [facility] CenterHow often to you have a drink containing alcohol?NeverBON KET[facility]ING [facility]ALTH MIAMISBURGStart: 40-70-5591Tiqhgfu smoking status NHISNever smoked tobacco (finding)[facility] HospitalDo you feel stress - tense, restless, nervous, or anxious, or unable to sleep at night because yourmind is troubled all the time - these days [OSQ]Only a littleGlennallen ClinicStart: 96-18-2718Mihrnqx Fogekwt00 days sober- 07/04/2024levelunc health rex hol[facility] springs ClinicStart: 95-08-5303Ojkcbjlxk beverage intakeLifetime non-drinker (finding)[facility] Work Phone: Start: 03-74-7390Azanio orientationChoose not to discloseUnOhio State Health System Work Phone: How many standard drinks containing alcohol do you have on a typical day?3 or 4NONC HealthcareStart: 08-26-2013 End: 59-38-2493KnaZwarur (finding)[facility] Hospitalexual OrientationGuernsey Memorial Hospital [facility] North Health CenterNEGATED: Highlighted [facility] Medical Equipment Procedure CodeEquipment CodeEquipment Original TextEquipment IdentifierDates Breast Us Core Bx [id number]: 79-23-6907Ubtdxfb on above:Description: Ribbon clip Goals DatePatient GoalDesired Activity/State Functional Status OzabVojeulcowsFdkmglIhccfope32-74-9754Lavmdxxmpv StatusN/[facility]05-13-2025Functional StatusN/[facility]05-02-2025 Functional StatusN/[facility]03-17-2025Functional StatusN/A [facility]03-04-2025Functional StatusN/[facility]02-04-2025Functional StatusN/[facility] 12-59-6018Hdiajsuxzs StatusN/[facility]10-19-2023Functional StatusN/[facility]05-04-2023Functional StatusN/[facility]03-10-2023Functional StatusNoGuernsey Memorial Hospital 24-72-4599Jhkuwxzkxm StatusN/[facility] Primary Lvwm69-69-2820 Functional StatusN/AFSelect Medical Specialty [facility] Primary Umln21-54-3222Oseiopxikj StatusN/[facility] Qzox09-92-6009Hnkxuaqzpk StatusN/A [facility]11-29-2022Functional statusPatient at Baseline [facility] Work Phone: [phone] 335-80131446100-98-2599Hcictrzugn StatusN/[facility]11-07-2022Functional StatusN/[facility] 87-83-2789Pcouualuvy StatusN/[facility] 08181365-51-9331Fvtvwvkniy StatusN/[facility]07-21-2022Functional StatusN/[facility] Mental Status SlojVcnpftviidBerykiDwcwnnpt20-39-1939Kysfygwwj functionCognitive Status Patient at BaselineThe [facility]: Clinical Notes 12-24-2020 to 07-03-2025 Note Date & [id number] NoteRight Eye Reliability was good. Progression has no prior data. Foveal threshold was normal. Findings include normal observations. Left Eye Reliability was good. Progression has no prior data. Foveal threshold was normal. 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 CT BRAIN WITHOUT CONTRAST: CLINICAL HISTORY: Dizziness weakness confusion and head pressure for 3 days COMPARISON: CT brain 09/15/2024 TECHNIQUE: Contiguous axial unenhanced images were obtained through the brain. This CT exam was performed using one or more following dose reduction techniques: Automated exposure control, adjustmentof the mA and/or kV accordingto patient size, [...] ABNORMALITY. Impression dictated by: Raoul Newton Jr., D.O. 06/29/2025 1:29 PM Dictation Location: [place] [address] Transcribed By: [facility] 06/29/25 1329 Dictated By: Raoul Newton Jr, DO 06/29/25 1327 Signed By: 06/29/25 1329 [facility]10-16-2025 History of Present illness Narrative * Aaliyah Francis, - 06/29/2025 11:30 AM EDT Images from the original note were not included. Shazia Chou is a 34 y.o. female presents for 4th pow Lt. lumpectomy HPI: HPI Shazia is 4 weeks post left lumpectomy for PASH. She developed a painful post- op hematoma and returns for recheck OBJECTIVE: Physical Exam Chest: Comments: Left breast firm area of resolving hematoma/seroma in the lumpectomy cavity, no overlyingskin erythema, cellulitis and no residual ecchymosis ASSESSMENT AND PLAN: Assessment/Plan Diagnoses and all orders for this visit: Hematoma Pseudoangiomatous stromal hyperplasia of breast Shazia is doing better, I explained that the firmness will take several weeks to months to completely resolve. I will see her next year for mamm's. She told the senior front end developer that she willcall to make the appointment. documented in this encounterSaint [facility]ry RoadWvwuspjkvm46-11-4821 History of Present illness Narrative* Aaliyah Francis DO - 06/14/2025 2:45 PM EDT Images from the original note were not included. Shazia Chou is a 34 y.o. female presents for 2nd pow Lt. lumpectomy (Poss. seroma) HPI: HPI Shazia is 2 weeks post Lt lumpectomy. She has missed her post-op appointments (x 2) but was seen in [place] ER for post-op ecchymosis and pain. They diagnosed her with US as having a hematoma or seroma. She states she noticed the swelling a few days after the surgery OBJECTIVE: Physical Exam Chest: Comments: The left UOQ incision is healed, but inferior / anterior to it is a firm area with ecchymosis, that is tender to palpate but has no signs of cellulitis or skin erythema. 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 I attempted to aspirate the collection and got 8 ml of old bloody fluid. We discussed using a heating pad and a supportive bra. I'll give her a Rx for Tylenol #3 and see her in 2 weeks for recheck. She also requested a note for work and we will keep her off till next Thursday. documented in this encounterSaint Luke[facility] Hospital–Barry RoadGftyzdljud46-32-4114 History of Present illness Narrative* Aaliyah Francis, DO - 05/04/2025 9:45 AM EDT Images from the original note were not included. Shazia Chou 1990 Shazia Chou is a 34 y.o. female presents with chief complaint of Left mamm/US results (C/o nipple pain ) HPI: HPI Shazia states in June she felt a lump in the left breast, [facility]. She states she can feel the mass and it hurts. She was told at the time towatch the mass and she was never seen by a breast surgeon. She was told to keep an eye on it and did not request any follow up imaging. She lives in [place] and wants to move her care closer [...] Day Physical Exam Exam conducted with a tax assessor present. HENT: Head: Normocephalic. Cardiovascular: Rate and [...] and a subsequent biopsy done at the [facility] confirmed PASH. She was told [...] arrangements have been made. documented in this encounterSaint Luke's North Hospital–Barry RoadFqkktkdlhm17-68-5837 Radiology Diagnostic study [facility] [place] [address] [place] [address] Ultrasound Report Signed Patient: Shazia Chou MR#: [id number] : 1990 Acct:[id number] Age/Sex: 34 / F ADM Date: 5 Loc: PR Room: Type[facility] Attending Dr: Aaliyah Francis DO Ordering Provider: Aaliyah rFancis DO Date of Service: 04/26/25 MM/MM diagnostic mammo LT w/CAD: follow up for Left breast Upper outer quadrant ([id number]) US/US breast LT limited: follow with mamm upper outer quadrant Copies to: Aaliyah Francis DO~ DIAGNOSTIC LEFT MAMMOGRAM - FULL FIELD DIGITAL WITH TOMOSYNTHESIS/targeted breast ultrasound CLINICAL DATA: PASH, pain Craniocaudal and mediolateral oblique views of the left breast were obtained using low-dose digitaltechnique. Comparison is made to prior studies from outside facility 07/11/2024. This examination was reviewed with the aid of CAD. Heterogeneous dense breast tissue. There are no dominant masses, typically malignant calcificationsor architectural distortion. Focal asymmetry 1:00 left breast with posterior depth with biopsy clipnoted Targeted ultrasound left breast 1:00 demonstrates focal [...] Escalante M.D. 04/26/2025 10:15 AM Dictation Location: [facility] Tech: Shazia Mullen; Elena Vaughn Transcribed By: MARKY 04/26/25 1015 Dictated By: Denny Escalante MD 04/26/25 1009 Signed By: 04/26/25 1015 [facility] Work Phone: [phone]) 842-413507-31-2025 History of Present illness Narrative* Aaliyah H Tito, DO - 04/13/2025 10:00 AM EDT Images from the original note were not included. Shazia Chou 1990 Shazia Chou is a 34 y.o. female presents with chief complaint of Left breast hypertrophy HPI: CLEMENT Mccray states in June she felt a lump in the left breast, [facility]. She states she can feel the mass and it hurts. She was told at the time towatch the mass and she was never seen by a breast surgeon. She was told to keep an eye on it and did not request any follow up imaging. She lives in [place] and wants to move her care closer [...] Day Physical Exam Exam conducted with a tax assessor present. HENT: Head: Normocephalic. Cardiovascular: Rate and [...] and a subsequent biopsy done at the [facility] confirmed PASH. She was told [...] the imaging is completed. documented in this encounterSaint Luke's North Hospital–Barry RoadZezttoabcw27-87-8168 History of Present illness Narrative* Shazia Bach LEONOR Elise - 04/09/2025 10:45 AM EDT Images from the original note were not included. [address] , [address] [facility], [address] P: [phone] F: [phone] HPI Historian of HPI: patient Shazia Chou [...] findings will treat as directed. Encouraged patient todrink plenty of water and get plenty of [...] improve. Shazia Elise NP documented in this encounterSaint Luke's North Hospital–Barry RoadWvymsligsg94-92-2069 NotePulmonology Office/Clinic Note History of Present Illness Here for evaluation of her sleep issues. The patient reports that she has been having problems withlittle sleep with occasional times of sleeping all day long. She reports that she typically goes tobed around 12 midnight as she usually works [...] no food allergies, no recurrent infections, no impairedimmunity Additional ROS info: Except as noted in [...] if clinically indicated. I will arrange for sleepstudy and see her back after her testing is completed. She will call me back in the meantime if anyissues. Ordered: Sleep Study Baseline Follow-up With When Contact Information Narcisa BHAKTA, Sami Longoria, PUL, GREER [address] [facility] [place] [address]- Additional Instructions: after his testing is completed [...] placement of breast localization device(s) (eg, clip, metallicpellet), when performed, and imaging of the biopsy specimen, when performed, percutaneous; first lesion, including ultrasound guidance (07/11/2024), Hysterectomy (12/05/2022), Endoscopic plantar fasciotomy (02/16/20 (more content not included)...[facility] CenterComment on above:Result Comment: Electronically Signed By: Narcisa BHAKTA, Sami Longoria\.br\Date and Time Signed: 03/29/25 11:39 [id number] Evaluation + Plan noteExtracted from:Title:chronic pain Author:Babar Mayers DODate:03/09/25 Patient is presenting with a history of [...] Date:03/13/2025 11:30:00 AM Scheduled Provider: Location:[facility] Appointment Type:CO Myocard Spect Multi Rest/Stress-Res Appointment Date:03/13/2025 12:30:00 PM Scheduled Provider: Location:[facility] Appointment Type:CO Myocard Spect Multi Rest/Stress - R Appointment Date:03/13/2025 01:00:00 PM Scheduled Provider: Location[facility] Appointment Type:NM Myocard Spect Multi Rest/Stress-Str Appointment Date:03/13/2025 02:00:00 PM Scheduled Provider: Location[facility] Appointment Type:NM Myocar Spect Multi Rest/Stress - St Appointment Date:03/16/2025 02:30:00 PM Scheduled Provider:Jak Peace MD Location:[facility].Cardiology Clinic Appointment Type:Cardiology Follow Up (FT) Future Scheduled Tests Radiology* NM Myocardial Spect Rest/Stress 1 Day 03/13/25 [facility] 06-26-2025 NoteConsultation Note Patient is [...] call with any questions or concerns that arise.[facility] CenterComment on above:Result Comment: Electronically Signed [...] The patient agrees to continue currently prescribed/recommended therapies.[facility] CenterComment on above: Result Comment: Electronically Signed By: Babar Mayers DO.br\Date and Time Signed: 03/03/25 08:46 [id number] Hospital Discharge instructions Patient Education 02/17/2025 21:08:51 [...] Follow these instructions at home: Medicines Take rukn-ner-zvjmdxa and prescription medicines only as told by [...] provider. Document Revised: 01/09/2022 Document Reviewed: 01/09/2022 [employer] Patient Education 2023 [employer]. 02/17/2025 21:08:51 Acute Bronchitis, Adult Acute Bronchitis, [...] condition. 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 Avoid contact with people who have [...] it is easier to cough up. Take yjtk-xuk-xdohnff and prescription medicines only as told by [...] provider. Document Revised: 12/11/2022 Document Reviewed: 01/01/2022 [employer] Patient Education 2023 [employer]. Follow Up Care 02/17/2025 18:54:28 With:Jennie Durand Address: [address] [place], [place] [address]dict Ailyn, [facility], [address] [address] Business (1) When:02/20/2025 20:12:05 [facility] 06-06-2025 NoteED Patient Education Note [...] these instructions at home: Medicines ??? Take hohf-ffa-ksqdluo and prescription medicines only as told by [...] provider. Document Revised: 01/09/2022 Document Reviewed: 01/09/2022 [employer] Patient Education ? 2023 [employer]. Pulmonary Medicine Acute Bronchitis, Adult Acute bronchitis [...] the common cold. ??? (more content not included)...[facility]06-02-2025 Telephone encounter Note* Telephone Encounter - Tevin Carson DO - 02/13/2025 8:56 AM EDT Needs follow-up Tevin Carson DO [facility]06-02-2025 Miscellaneous Notes* Telephone Encounter - Tevin Carson [...] advise. Madeline Teixeira MA documented in this encounterA[facility] Telephone encounter Note * Telephone Encounter - Madeline Teixeira MA - 02/11/2025 10:13 AM EDT Last OV 07/25/2024 ..Pharmacy escripts requesting the following refill: Requested Prescriptions Pending Prescriptions Disp Refills lamoTRIgine (LAMICTAL) 25 mg tablet [Pharmacy Med Name: LAMOTRIGINE 25 MG TABLET] 360 tablet 0 Sig: TAKE 2 TABLETS BY MOUTH TWICE A DAY Please review and advise. Madeline Teixeira MA [facility]05-30-2025 NoteEchocardiology Procedure Exam Date/Time Accession # Ordering Echo Transthoracic 02/09/2025 11:26 EDT [id number] MOLLY GREGORIO CNP CPT code 51015 91928 Reason for Exam (Echo Transthoracic Complete) Palpitations R00.2 Report [facility] [address] [place] [address] Adult Echocardiogram Report Name: SHAZIA CHOU Study Date: 02/09/2025 10:52 AM BP: 135/99 mmHg Patient Location: [facility] Ambulatory[facility] HR: 65 : 1990 Gender: Female Height: 67 in Age: 34 yrs Ethnicity: [facility] Weight: 205 lb Reason For Study: Palpitations R00.2 BSA: 2.0 m2 History: HTN,Smoker-Yes Ordering Physician: BERNARD^MOLLY Referring Physician: MOLLY GREGORIO Performed By: Candis Matthews, FRANCHESKAMS, RVT Interpretation [...] P.7 mmHg RVSP(TR): 32.7 mmHg Measurements from [facility] Mass (HM): 133.0 grams LAEF (HM): 62.0 % BSA (HM): 2.0 m2 CI (HM): 2.8 l/min/m2 MINESH (HM): 25.0 ml/m2 LAVmax (HM): 50.0 ml LAVmin (): 19.0 ml Pat Height (): 170.0 cm Pat Weight (HM): 93.0 kg FINAL REPORT Dictated: 02/09/2025 10:52 am Fernandez Daniels MD Signed (Electronic Signature): 02/10/2025 11:27 am Signed by: Fernandez Daniels MD Transcribed by: GINA Technologist: [facility]05-16-2025 Evaluation + Plan noteExtracted from:Title:Pain Managment Follow upAuthor: Humble GERONIMO, AmandaDate:01/27/25 Impression and Plan Patient is a 34-year-old [...] improved. The normal back pain that she experienceswas overall resolved. She had some muscular discomfort but the back pain was better. She would liketo continue this process and work on getting [...] and if she once again get significant short-term relief she may be future can for [...] index results. For concerning screenings had a discussionwith the patient, provided patient education, and recommended follow-up with primary care provider when appropriate. Patient noted with risk of falling received education on strength, gait, and balance training to prevent future risk of falling.[facility] 05-16-2025 NoteConsultation Note Patient: SHAZIA [...] TID, # 90 tab(s), Refills(s) 2, Pharmacy: [facility]/pharmacy #[id number], 170, cm, 01/13/25 8:29:00 EDT, [...] All Problems Bipolar disorder / SNOMED CT 78362773 / Confirmed Pancreatic mass / SNOMED CT 9147704946 / Confirmed Smoker / SNOMED CT 544528896 / Confirmed Added secondary to documentation in Social History. Borderline personality disorder / SNOMED CT 43256053 / Confirmed History of bypass of stomach / SNOMED CT 8521967131 / Confirmed Vitamin D deficiency / SNOMED CT 51000227 / Confirmed Left breast mass / SNOMED CT 834039916 / Confirmed Hypertension / SNOMED CT 6842527931 / Confirmed Overweight (BMI 25.0-29.9) / SNOMED CT 1444976285 / Confirmed Muscle weakness-general / SNOMED CT 09997843 / Confirmed Chronic pain syndrome / SNOMED CT 8014681392 / Confirmed Iron deficiency anemia / SNOMED CT 019014117 / Confirmed noted in 09/16/2024 [facility] Records page 5. added per OP CDI policy. Alcohol abuse, uncomplicated / SNOMED CT 60763084 / Confirmed BMI 31.0-31.9,adult / SNOMED CT 744858844 / Confirmed Obesity (BMI 30-39.9) / SNOMED CT 329253438 / Confirmed Resolved: / SNOMED CT 890779165 Resolved: / SNOMED CT 278283602 Resolved: / SNOMED CT 833826325 Resolved: Alcohol abuse / SNOMED CT 21912206 Canceled: Anxiety and depression / SNOMED CT 21242948 Canceled: Plantar fasciitis of left foot / SNOMED CT 399774988 Canceled: Intracranial hypertension / SNOMED CT 008331717 Canceled: Smoker / SNOMED CT [id number] Added secondary to documentation in Social History. Canceled: Class 1 obesity with body mass index (BMI) of 32.0 to 32.9 in adult / SNOMED CT 0853145374 Canceled: Anxiety / SNOMED CT 68209242 Canceled: Depression / SNOMED CT 06379015 Canceled: Borderline personality disorder / SNOMED CT 85835784 Canceled: Class 1 obesity with body mass index (BMI) of 30.0 to 30.9 in adult / SNOMED CT 7240530564 Canceled: Former smoker / SNOMED CT 68929621 Canceled: Grief reaction / SNOMED CT 092464685 Canceled: Overweight with body mass index (BMI) of 29 to 29.9 in adult / SNOMED CT 3352775672 Canceled: Disorder of oral soft tissue / SNOMED CT 8571518055 Canceled: Intentional benzodiazepine overdose / SNOMED CT 5625274527 Canceled: Omental infarction / SNOMED CT 346078236 Canceled: Axillary (more content not included)...[facility] Comment on above:Result Comment: Electronically Signed By: Orlando Kate PA-C\.br\Date and Time Signed: 01/27/25 10:38 [id number] NoteOperative Report Diagnosis: m47.816, lumbar spondyloarthropathy Procedure: [...] The patient agrees to continue currently prescribed/recommended therapies.[facility] CenterComment on above: Result Comment: Electronically Signed By: Babar Mayers DO.benito\Date and Time Signed: 01/24/25 09:58 [id number] Evaluation + Plan noteExtracted from: Title:Pain Managment Follow upAuthor:Humble GERONIMO, AmandaDate:01/13/25 Impression and Plan patient is a 34-year-old [...] and benefits were discussed. Patient is agreeable. Shewill follow-up 1 week after the injection for reevaluation. Call clinic sooner if necessary. She noted that she has previously trialed and failed all reasonable conservative treatments including physical therapy in the past, vbrc-yes-yxepvvw anti-inflammatory medications and the recent injection helped her radicular symptoms but not her back pain. She is really trying to avoid surgery as she is following with a surgeon as well. At this time, she is inquiring about getting an aquatic therapy requisition as she states that thiswas recommended to her by her surgeon but [...] index results. For concerning screenings had a discussionwith the patient, provided patient education, and recommended follow-up with primary care provider when appropriate. Patient noted with risk of falling received education on strength, gait, and balance training to prevent future risk of falling. Future Appointments Appointment Date:01/19/2025 09:15:00 AM Scheduled Provider: Location:.[facility] [place] Appointment Type:PT Julieta () [facility] 05-02-2025 NoteConsultation Note Patient: SHAZIA [...] been working full- time. She works at [employer] and they were running a special where they went back to the prices from the 1980s and she states that everybody was ordering Aras and then everybody called off and she worked for over 12 hours. She states that it was miserable. At this time, she has back pain that she rates a 7/10 but it can get up to a 10/10 with walking, standing, being upright and active. She feels like the Lyrica did not help her so she went back to [facility]. She is using 600 mg usually [...] BID, # 6 tab(s), Refills(s) 1, Pharmacy: [facility]/pharmacy #[id number], 162, cm, 08/08/22 9:11:00 EST, Height/Length Dosing, 83.1, kg, 08/08/22 9:11:00 EST, Weight Dosing pregabalin 50 mg Cap: 50 mg = 1 cap(s), Oral, BID, X 30 day(s), # 60 cap(s), Refills(s) 1, Pharmacy: [facility]/pharmacy #[id number], 170, cm, 11/15/24 13:59:00 EST, [...] All Problems Bipolar disorder / SNOMED CT 75087884 / Confirmed Pancreatic mass / SNOMED CT 7736330220 / Confirmed Smoker / SNOMED CT 659978311 / Confirmed Added secondary to documentation in Social History. Borderline personality disorder / SNOMED CT 81518959 / Confirmed History of bypass of stomach / SNOMED CT 6661277809 / Confirmed Vitamin D deficiency / SNOMED CT 11394753 / Confirmed Left breast mass / SNOMED CT 560935994 / Confirmed Hypertension / SNOMED CT 6733116642 / Confirmed Overweight (BMI 25.0-29.9) / SNOMED CT 2018329110 / Confirmed Muscle weakness-general / SNOMED CT 42855122 / Confirmed Chronic pain syndrome / SNOMED CT 2828708544 / Confirmed Iron deficiency anemia / SNOMED CT 340869630 / Confirmed noted in 09/16/2024 [facility] Records page 5. added per OP CDI policy. Alcohol abuse, uncomplicated / SNOMED CT 44537885 / Confirmed BMI 31.0-31.9,adult / SNOMED CT 246024000 / Confirmed Obesity (BMI 30-39.9) / SNOMED CT 950999773 / Confirmed Resolved: / SNOMED CT 458133801 Resolved: / SNOMED CT 352154950 Resolved: / SNOMED CT 157531195 Resolved: Alcohol abuse / SNOMED CT 63640311 Canceled: Anxiety and depression / SNOMED CT 85155245 Canceled: Plantar fasciitis of left foot / SNOMED CT 227625411 Canceled: Intracranial hypertension / SNOMED CT 075730036 Canceled: Smoker / SNOMED CT W697KA4H-[id number] Added secondary to documentation in Social History. Canceled: Class 1 obesity with body mass index (BMI) of 32.0 to 32.9 in adult / SNOMED CT 2748148199 Canceled: Anxiety / SNOMED CT 18967450 Canceled: Depression / SNOMED CT 59526896 Canceled: Borderline personality disorder / SNOMED CT 71305734 Canceled: Class 1 obesity with body mass index (BMI) of 30.0 to 30.9 in adult / SNOMED CT 4122096494 Canceled: Former smoker / SNOMED CT 40217498 Canceled: Grief reaction / SNOMED CT 400765314 Canceled: Overweight with body mass index (BMI) of 29 to 29.9 in adult / SNOMED CT 0968691574 Cance (more content not included)...[facility] CenterComment on above: Result Comment: Electronically Signed By: Orlando Kate PA-C\.br\Date and Time Signed: 01/13/25 08:44 [id number] Evaluation + Plan noteExtracted from: Title:Bilateral lumbar medial branch blocks target L4/5 and L5/S1 facetsAuthor: Babar Mayers DODate:01/24/25 Diagnosis: m47.816, lumbar s pondyloarthropathy Procedure: Bilateral [...] Date:01/27/2025 10:15:00 AM Scheduled Provider:Orlando Kate PA-C Location[facility] Appointment Type:Pain Management - Follow Up (FT) [facility] 04-05-2025 Evaluation + Plan noteExtracted from:Title: Bilateral lumbar medial branch blocks target L4/5 and L5/S1 facetsAuthor:Babar Mayers DODate:03/03/25 Diagnosis: m47.816, lumbar s pondyloarthropathy Procedure: Bilateral [...] Date:03/09/2025 12:30:00 PM Scheduled Provider:Babar Mayers DO Location:[facility] Appointment Type:Pain Management - Follow Up (FT) Appointment Date:03/13/2025 11:30:00 AM Scheduled Provider: [facility] App[facility] Type:NM Myocard Spect Multi Rest/Stress-Res Appointment Date:03/13/2025 12:30:00 PM Scheduled Provider: [facility] App[facility] Type:NM Myocard Spect Multi Rest/Stress - R Appointment Date:03/13/2025 01:00:00 PM Scheduled Provider: [facility] Appoint[facility] Type:NM Myocard Spect Multi Rest/Stress-Str Appointment Date:03/13/2025 02:00:00 PM Scheduled Provider: [facility] App[facility] Type:NM Myocar Spect Multi Rest/Stress - St Appointment Date:03/16/2025 02:30:00 PM Scheduled Provider:Jak Peace MD [facility] Follow [facility] ([facility]) Future Scheduled Tests Radiology* NM Myocardial Spect Rest/Stress 1 Day 03/13/25 [facility] 03-17-2025 Evaluation + Plan noteExtracted from:Title: Left L5/S1 transforaminal epidural steroid injection under fluoroscopic guidance Author:Babar Mayers DODate:11/28/24 Diagnosis: m54.16, lumbar ra diculopathy Procedure: Left [...] 10:15:00 AM Scheduled Provider:Orlando Kate PA-C Location:[facility] Appointment Type:Pain Management - Follow Up (FT) Future Scheduled Tests Radiology* US Abdomen, Limited 11/29/24 [facility] 03-17-2025 NoteOperative Report Diagnosis: m54.16, lumbar [...] and agrees to comply to currently prescribed/recommended therapies.[facility] Comment on above:Result Comment: Electronically Signed By: Babar Mayers DO\.br\Date and Time Signed: 11/28/24 10:22 [id number] NoteConsultation Note Patient: SHAZIA CHOU Age: 33 [...] all conservative treatments first. She has taken dctw-eme-zzyljky medication without any long-term relief. She states that her left leg pain affects her quality of life and affects her activities. 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 She is hopeful to be able to [...] All Problems Bipolar disorder / SNOMED CT 92318923 / Confirmed Pancreatic mass / SNOMED CT 6472421248 / Confirmed Smoker / SNOMED CT 954114780 / Confirmed Added secondary to documentation in Social History. Borderline personality disorder / SNOMED CT 86397259 / Confirmed History of bypass of stomach / SNOMED CT 5277346703 / Confirmed Vitamin D deficiency / SNOMED CT 05194339 / Confirmed Left breast mass / SNOMED CT 015211280 / Confirmed Hypertension / SNOMED CT 2061225209 / Confirmed Overweight (BMI 25.0-29.9) / SNOMED CT 1601699330 / Confirmed Muscle weakness-general / SNOMED CT 12153927 / Confirmed Chronic pain syndrome / SNOMED CT 9952077722 / Confirmed Iron deficiency anemia / SNOMED CT 884394976 / Confirmed noted in 09/16/2024 [facility] Records page 5. added per OP CDI policy. Alcohol abuse, uncomplicated / SNOMED CT 70775200 / Confirmed BMI 31.0-31.9,adult / SNOMED CT 149088533 / Confirmed Obesity (BMI 30-39.9) / SNOMED CT 059171414 / Confirmed Resolved: / SNOMED CT 651083430 Resolved: / SNOMED CT 180498512 Resolved: / SNOMED CT 748805187 Resolved: Alcohol abuse / SNOMED CT 39221783 Canceled: Anxiety and depression / SNOMED CT 04955331 Canceled: Plantar fasciitis of left foot / SNOMED CT 669592649 Canceled: Intracranial hypertension / SNOMED CT 769978607 Canceled: Smoker / SNOMED CT [id number] Added secondary to documentation in Social History. Canceled: Class 1 obesity with body mass index (BMI) of 32.0 to 32.9 in adult / SNOMED CT 7746575006 Canceled: Anxiety / SNOMED CT 48235216 Canceled: Depression / SNOMED CT 87436597 Canceled: Borderline personality disorder / SNOMED CT 40238695 Canceled: Class 1 obesity with body mass index (BMI) of 30.0 to 30.9 in adult / SNOMED CT 4144382765 Canceled: Former smoker / SNOMED CT 04435034 Canceled: Grief reaction / SNOMED CT 651301791 Canceled: Overweight with body mass index (BMI) of 29 to 29.9 in adult / SNOMED CT 9333013762 Canceled: Disorder of oral soft tissue / SNOMED CT 8114381914 Canceled: Intentional benzodiazepine overdose / SNOMED CT 6695981143 Canceled: Omental infarction / SNOMED CT 809028596 Canceled: Axillary lymphadenopathy / SNOMED CT 000176 Canceled: BMI 28.0-28.9,adult / SNOMED CT 1739586368 Canceled: Over weight / SNOMED CT 849689888 Canceled: Leukocytosis / SNOMED CT 640650603 Canceled: BMI 29.0-29.9,adult / SNOMED CT 4578483661 Canceled: Headache after spinal puncture / SNOMED CT 855995615 Canceled: Trapezius muscle spasm / SNOMED CT 6951411388 Canceled: Recovering alcoholic (more content not included)...[facility] CenterComment on above:Result Comment: Electronically Signed By: Orlando Kate PA-C\.benito\Date and Time Signed: 11/15/24 14:14 [id number] Evaluation + Plan noteExtracted from:Title:Pain Managment H&P new patientAuthor: Orlando Kate PA-CDate:11/15/24 Impression and Plan Patient is a 33-year-old female with past medical history significant for lumbar spondylolisthesis,pars defect and lumbar neuritis. At this time, [...] time, she tried to do physical therapy butcould not get relief from this and in [...] Patient is agreeable. She is going to follow-up2 weeks after the injection for reevaluation. Call clinic sooner if necessary. NOAH score: 42%.[facility] 02-04-2025 Evaluation + Plan noteExtracted from:Title: ED NoteAuthor:Monse GERONIMO, JansenDate:10/18/24 Chronic pain (G89.29: Other chronic pain) Orders: ketorolac, 60 mg = 2 mL, Injection, IntraMuscular, Once PRN Pain, STAT, Start date 10/18/24 8:31:00EST, 10/18/24 8:31:00 EST methocarbamol, 1,500 mg = 2 tab(s), Oral, TID, X 3 day(s), # 18 tab(s), Refills(s) 0, Pharmacy: [facility]/pharmacy #[id number], 170, cm, 10/18/24 8:12:00 EST, Height/Length Dosing, 90, kg, 10/18/24 8:12:00 EST, Weight Dosing predniSONE, 60 mg = 3 tab(s), Oral, Daily, X 7 day(s), # 21 tab(s), Refills(s) 0, Pharmacy: [facility]/pharmacy #[id number], 170, cm, 10/18/24 8:12:00 EST, Height/Length Dosing, 90, kg, 10/18/24 8:12:00 EST, Weight Dosing Future Appointments Appointment Date:11/18/2024 08:00:00 AM Scheduled Provider:KURT BALBUENA CNP Location:[facility] Appointment Type:[facility] 02-04-2025 Hospital Discharge instructions Patient Education 10/18/2024 [...] your skin (aromatherapy). Other treatments may include: Dkcv-rwi-dzpcrgx or prescription medicines. Color, light, or sound therapy. Local electrical stimulation. The electrical pulses help to relieve pain by temporarily stopping the nerve impulses that cause you to feel pain. Injections. These deliver numbing or pain-relieving medicines into the spine or the area of pain. Medicines Take fpnu-abp-ulrabuk and prescription medicines only as told by your health care provider. Ask your health care provider if the medicine prescribed to you: ?Requires you to avoid driving or using machinery. ?Can cause constipation. You may need to take these actions to prevent or treat constipation: ?Drink enough fluid to keep your urine pale yellow. ?Take nkzj-dey-wkwnfvw or prescription medicines. ?Eat foods that are [...] the National Suicide Prevention Lifeline at or 341. This is open 24 hours a day. Text the Crisis Text Line at 694621. This information is not intended to replace advice given to you by your health care provider. Make sure you discuss any questions you have with your health care provider. Document Revised: 04/22/2023 Document Reviewed: 03/25/2023 [employer] Patient Education 2023 [employer]. Follow Up Care 10/18/2024 08:05:45 With:KURT BALBUENA Address: [address] [place] [id number] Business (1) When:10/21/2024 08:32:28 [facility] 02-04-2025 NoteED Patient Education Note [...] skin (aromatherapy). Other treatments may include: ??? Sxgk-sui-uicvjhr or prescription medicines. ??? Color, light, or sound therapy. ??? Local electrical stimulation. The electrical pulses help to relieve pain by temporarily stopping the nerve impulses that cause you to feel pain. ??? Injections. These deliver numbing or pain-relieving medicines into the spine or the area of pain. Medicines ??? Take peqo-biw-octadlb and prescription medicines only as told by your health care provider. ??? Ask your health care provider if the medicine prescribed to you: ? Requires you to avoid driving or using machinery. ? Can cause constipation. You may need to take these actions to prevent or treat constipation: ? Drink enough fluid to keep your urine pale yellow. ? Take kltp-hou-tcrrkyp or prescription medicines. ? Eat foods that [...] the National Suicide Prevention Lifeline at or 033. This is open 24 hours aday. ??? Text the Crisis Text Line at 576733. This information is not intended to replace advice given to you by your health care provider. Make sure you discuss any questions you have with your health care provider. Document Revised: 04/22/2023 Document Reviewed: 03/25/2023 [employer] Patient Education ? 2023 [employer].[facility] 10-17-2024 NoteHNO ID: [id number] Author: MELISSA GOLD MA Service: ? Author Type: Nursing Agency Manager Type: Progress Notes Filed: 10/17/2024 12:28 Note [...] or unnecessary to reach patient: Left message [employer] message sent HCC related Navigation Signature: Melisas Gold MA October 17, 2024 12:23 [facility]02-03-2025 History of Present illness Narrative* Melissa [...] or unnecessary to reach patient: Left message [employer] message sent HCC related Navigation Signature: Melissa Gold MA October 17, 2024 12:23 PM documented in this encounterAdena Pike Medical Center02-03-2025 NotePatient Outreach (NETNAV) SHAZIA CHOU ([id number]) 1990 F Date Time Provider Department 10/17/24 [...] or unnecessary to reach patient: Left message [employer] message sent HCC related Navigation Signature: Melissa [...] mg by mouth daily at bedtime. - gnvawkyksbqa-eeu-fvsc-FA-vit K (BARIATRIC MULTIVITAMINS) 45 mg iron- 800 [...] 03/08/2024 Encounter Status:Closed by MELISSA GOLD on 10/17/24[facility]01-31-2025 NotePatient Education Mental and Behavioral Health [...] plan to use machinery, such as a senior backup administrator or power tool. ? You have a [...] National Drug and Alcohol Treatment Referral Service: 8-245-658-HELP (5268) ??? Alcoholics Anonymous, Alcoholics Resource Center: ??? Substance Abuse and Mental Health Services Administration: samhsa.gov Where to find more information: ??? Centers for Disease Control and Prevention: cdc.gov ??? National [place] on Alcohol Abuse and Alcoholism: niaaa.nih.gov/alcohol Contact [...] the National Suicide Prevention Lifeline at or 389. This is open 24 hours aday. ??? Text the Crisis Text Line at 799005. Summary ??? Binge-drinking refers to drinking a large amount of alcohol in a short time. This is usually 5 drinks for men or 4 drinks for women, on one occasion. ??? Binge-drinking can lead to serious health problems, such as heart dise (more content not included)...[facility]01-17-2025 NotePatient Education Mental and Behavioral [...] skin (aromatherapy). Other treatments may include: ??? Hnew-iks-yvqlzon or prescription medicines. ??? Color, light, or sound therapy. ??? Local electrical stimulation. The electrical pulses help to relieve pain by temporarily stopping the nerve impulses that cause you to feel pain. ??? Injections. These deliver numbing or pain-relieving medicines into the spine or the area of pain. Medicines ??? Take gjpz-zbj-uqrlxdm and prescription medicines only as told by your health care provider. ??? Ask your health care provider if the medicine prescribed to you: ? Requires you to avoid driving or using machinery. ? Can cause constipation. You may need to take these actions to prevent or treat constipation: ? Drink enough fluid to keep your urine pale yellow. ? Take tkop-tti-jayndyi or prescription medicines. ? Eat foods that [...] the National Suicide Prevention Lifeline at or 380. This is open 24 hours aday. ??? Text the Crisis Text Line at 210064. This information is not intended to replace advice given to you by your health care provider. Make sure you discuss any questions you have with your health care provider. Document Revised: 04/22/2023 Document Reviewed: 03/25/2023 [employer] Patient Education ? 2023 [employer].[facility] 09-27-2024 History of Present illness Narrative* Corby Laresn, DO - 09/27/2024 2:00 PM EST Images from the original note were not included. Reason for Appointment: EMG Patient: Shazia Chou : 1990 EMG Computer: [employer] Referring Physician: Dr. Corby Larsen EMG: MILTON oil painter: Saúl Mccray RT(R) Office Location: [place] Reason for EMG: c/o weakness in bilateral [...] nature of the test. documented in this encounterSaint Luke's North Hospital–Barry [id number] History of Present illness Narrative* Corby Larsen [...] typically knows very well. She works at [employer] and will forget what goes on pizzas [...] , wrist extensors , wrist flexor , public weigher strength 5/5. LUE Strength deltoid , biceps , triceps , wrist extensors , wrist flexor , public weigher strength 5/5. RLE Strength illopsoas, quadriceps, tibialis [...] lower extremities on 07/09/23: Normal LP at [facility] on 08/19/22: Opening pressure of 23 cm of CSF, CSF testing was unremarkable MRI brain and MR venogram on 08/11/22 at [facility]: unremarkable. Assessment/Plan Diagnoses and all orders for this visit: Ataxia It is my impression that patient has abnormal bmeqpb-oi-sfwa testing and feels like she is walking [...] without contrast. We will do this at [facility] for comparison. Paresthesia Patient continues to complain [...] of mental health issues documented in this encounterSaint Luke's North Hospital–Barry [id number] Evaluation + Plan note Diagnostic Tests Pending * Vitamin A Level 09/20/24 [facility] [id number] Radiology [facility] [place] [address] [place] [address] CT Scan Report Signed Patient: Shazia Chou MR#: [id number] : 1990 Acct:[id number] Age/Sex: 33 / F ADM Date: 5 Loc: ER Room: Type: [facility] ER Attending Dr: Copies to: Sailaja Anderson APRN~ Ordering Provider: Sailaja Anderson APRN Date of Service: 09/15/24 CT/CT angio head: weakness ([id number]) CT/CT angio neck: weakness ([id number]) CT/CT head/brain wo con: weakness CT head/brain [...] Wiley Shetty M.D.09/15/2024 3:56 PM Dictation Location: [facility] IncKLICKIT[facility] HEALTHThe [facility] Transcribed By: [facility] 09/15/24 1556 Dictated By: Wiley Shetty II, MD 09/15/24 1546 Signed By: 09/15/24 1556 [facility] Work Phone: 1(161) 962-233101-02-2025 NotePatient Education Mental and Behavioral Health Myofascial [...] these instructions at home: Medicines ??? Take hfzc-nuw-lffngda and prescription medicines only as told by your health care provider. ??? Ask your health care provider if the medicine prescribed to you: ? Requires you to avoid driving or using machinery. ? Can cause constipation. You may need to take these actions to prevent or treat constipation: ? Drink enough fluid to keep your urine pale yellow. ? Take eynz-zkq-yxocwms or prescription medicines. ? Eat foods that [...] ??? Do not use (more content not included)...[facility] 09-13-2024 Miscellaneous Notes* Result Encounter Note - Aleah Howard MD - 09/13/2024 9:45 AM EST Shazia your echocardiogram shows normal heart pump function and valves, we will discuss more at upcoming visit. documented in this encounterBluffton Hospital Work Phone: 1(317) 603-289912-31-2024 Progress note* Result Encounter Note - Aleah Howard MD - 09/13/2024 9:45 AM EST Shazia your echocardiogram shows normal heart pump function and valves, we will discuss more at upcoming visit. [facility] Work Phone: 1(113) 980-527812-23-2024 Telephone encounter Note* Telephone Encounter - Hilda Lemos RN - 09/05/2024 10:07 AM EST S- patient asked PCP to review labs B- recent ER visit 08/27/24 A- uploaded care everywhere. ER follow up phone call. R- Follow up scheduled 09/13 At [facility]. Lipase 271 at [place] Concerned about Iron and Riley reports. Patient will screenshot and send her lab work from the other hospitals in a [employer] message CALL FOR ER FOLLOW UP: On this date and time, Shazia was seen at 08/27/24 at [facility] 08/22/24 at [facility] How is patient doing now? Lipase 271 at [place] Concerned about Iron and Riley reports. Patient will screenshot and send her [...] updated care everywhere. RX: none Hilda KHALIL reproduction machine loader of [facility] [address] [place] [address] phone [phone] fax [facility]12-23-2024 Miscellaneous Notes* Telephone Encounter - Hilda Lemos RN - 09/05/2024 10:07 AM EST S- patient asked PCP to review labs B- recent ER visit 08/27/24 A- uploaded care everywhere. ER follow up phone call. R- Follow up scheduled 09/13 At [facility]. Lipase 271 at [place] Concerned about Iron and Riley reports. Patient will screenshot and send her lab work from the other hospitals in a [employer] message CALL FOR ER FOLLOW UP: On this date and time, Shazia was seen at 08/27/24 at [facility] 08/22/24 at [facility] How is patient doing now? Lipase 271 at [place] Concerned about Iron and Riley reports. Patient will screenshot and send her [...] updated care everywhere. RX: none Hilda KHALIL reproduction machine loader of [facility] [address] [place], [place] [id number] phone [phone] fax documented in this encounterAdena Pike Medical Center12-12-2024 NoteHNO ID: [id number] Author: MARY JO TRINIDAD RN Service: ? [...] FINDINGS/SUMMARY: None Patient Attributed To: QAE Payer: [facility] Action Taken: No action needed. Contact made with patient: No, Chart review only. Signature: Mary Jo Trinidad RNMiami Valley Hospital12-12-2024 History of Present illness Narrative* Mary Jo Trinidad RN - 08/25/2024 2:56 PM EST [facility] ED[facility] RN Patient identified by name [...] Mary Jo Trinidad RN documented in this encounterAdena Pike Medical Center12-12-2024 NotePatient Outreach (AMBG) SHAZIA CHOU ([id number]) 1990 F Date Time Provider Department 08/25/24 MARY JO TRINIDAD [facility] During your visit today, we recorded the [...] Assessed Reason for Visit: CARMELINA LAN RN [[id number]] Cmt: ED Utilization Review per request of [...] mg by mouth daily at bedtime. - tcbuibjnzrfi-yyt-ktxq-FA-vit K (BARIATRIC MULTIVITAMINS) 45 mg iron- 800 [...] Encounter Status:Closed by MARY JO TRINIDAD on 08/25/24[facility]12-05-2024 Evaluation + Plan note Diagnostic Tests Pending * EBV Antibody Profile 08/18/24 * Jazmin Teixeira Ab Early Antigen 08/18/24 [facility] [id number] Telephone encounter Note* Telephone Encounter - Tevin Carson DO - 08/17/2024 3:12 PM EST The following approved medication requests have been transmitted electronically. Requested Prescriptions Pending Prescriptions Disp Refills lamoTRIgine (LAMICTAL) 25 mg tablet [Pharmacy Med Name: LAMOTRIGINE 25 MG TABLET] 360 tablet 0 Sig: Take 2 tablets by mouth two times a day. Tevin Carson DO [facility]12-04-2024 Miscellaneous Notes* Telephone Encounter - Tevin Carson [...] advise. Jacinda Arreola MA, documented in this encounterAdena Pike Medical Center12-04-2024 Telephone encounter Note * Telephone Encounter - Jacinda Arreola MA - 08/17/2024 2:42 PM EST Pt last seen 07/25/24. Pharmacy electronically requesting refills as follows: Requested Prescriptions Pending Prescriptions Disp Refills lamoTRIgine (LAMICTAL) 25 mg tablet [Pharmacy Med Name: LAMOTRIGINE 25 MG TABLET] 360 tablet 1 Sig: TAKE 2 TABLETS BY MOUTH TWICE A DAY Please review and advise. Jacinda Arreola MA, [facility]12-03-2024 NoteNormal sinus rhythm at 75 bpm normal intervals abnormal R wave progression cannot exclude previous anterior septal myocardial infarction, 1 ventricular premature beat is noted. 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 She is status post partial hysterectomy. She [...] lamoTRIgine (LAMICTAL) 50 mg, 2 times daily bzhwbtiosdml-itg-phet-FA-vit K (Bariatric Multivitamins) 45 mg iron- 800 [...] already been to the emergency room in [place] for her symptoms. Follow-up after testing Discussed [...] exam, discussion and plan. documented in this encounterBluffton Hospital Work Phone: 1(815) 356-494211-25-2024 Instructions* Patient Instructions* Rita Knowles LPN - [...] Provided instructions on exercise. documented in this encounterBluffton Hospital Work Phone: 1(835) 495-450211-11-2024 NoteHNO ID: [id number] Author: TEVIN CARSON, DO Service: ? Author Type: Physician Type: Progress Notes Filed: 07/25/2024 16:57 Note Text: [facility] Visit Assessment and Plan 1. Bipolar affective [...] COMPLETE BLOOD COUNT AND DIFFERENTIAL Tevin Carson 07/25/2024 Subjective This is a 33 year [...] appointment. She is scheduled to see a investigative shopper at for this. ROS: As per HPI. [...] Mood and Affect: Mood normal. Behavior: Behavior normal.[facility]11-11-2024 History of Present illness Narrative* Tevin Carson - 07/25/2024 3:07 PM EST [facility] Medicine Visit Assessment and Plan [...] appointment. She is scheduled to see a investigative shopper at for this. ROS: As per HPI. [...] normal. Behavior: Behavior normal. documented in this encounterAdena Pike Medical Center11-08-2024 Telephone encounter Note * Telephone Encounter - Tevin Carson DO - 07/22/2024 12:27 PM EST Agree with in office evaluation, needs to go to ED if symptoms worsen Tevin Carson DO [facility] Work Phone: 1(406) 827-932011-08-2024 Miscellaneous Notes* Telephone Encounter - Tevin Carson [...] s/p hyster Protocols used: Anxiety and Panic Pwkqjk-QHAZI-MM Request/Response - Patient scheduled for ThursdayJul [address] Carson (20 minutes). Patient is alsoscheduled for 40 minutes on Thursday[address] Carson. I did not cancel the Thursday appt in case a 40 min follow up would be appropriate. Please advise if needed. documented in this encounterAdena Pike Medical Center11-08-2024 Telephone encounter Note * Telephone Encounter - [...] s/p hyster Protocols used: Anxiety and Panic Dqcllj-HRQLE-XY Request/Response - Patient scheduled for ThursdayJul [address] Carson (20 minutes). Patient is alsoscheduled for 40 minutes on ThursdayJul [address] Carson. I did not cancel the Thursday appt in case a 40 min follow up would be appropriate. Please advise if needed. [facility]11-08-2024 Telephone encounter Note* Telephone Encounter - Hilda Lemos RN - 07/22/2024 11:34 AM EST See nurse triage encounter. [facility]11-08-2024 Miscellaneous Notes* Telephone Encounter - Hilda Lemos RN - 07/22/2024 11:34 AM EST See nurse triage encounter. documented in this encounterAdena Pike Medical Center10-28-2024 Instructions* Patient Education - Ev Lindsey RT(R) - 07/11/2024 9:29 AM EDT Post procedure written instructions were given to patient. [facility]10-28-2024 Miscellaneous Notes* Patient Education - Ev Lindsey RT(Keshav) - 07/11/2024 9:29 AM EDT Post procedure written instructions were given to patient. documented in this encounterAdena Pike Medical Center10-28-2024 NoteHNO ID: [id number] Author: EV LINDSEY RT(R) Service: Radiology Author Type: Store Stock Help Type: Patient Education Filed: 07/11/2024 09:29 Note Text: Post procedure written instructions were given to patient.[facility]10-21-2024 History of Present illness Narrative* Omar [...] PATIENT PRESENTS WITH AN IMPLANTABLE OR ATTACHED POTTER OR CERAMIC ARTIST: No RADIOLOGY DEPARTMENT: Mammography PERIPHERAL IV DATA: Not applicable SIGNED BY: Stewart Brewer July 04, 2024 12:32 PM documented in this encounterAdena Pike Medical Center10-21-2024 NoteHNO ID: [id number] Author: OMAR SOLIMAN Mammo Tech Service: ? Author Type: Store Stock Help Type: Progress Notes Filed: 07/04/2024 12:32 Note [...] PATIENT PRESENTS WITH AN IMPLANTABLE OR ATTACHED POTTER OR CERAMIC ARTIST: No RADIOLOGY DEPARTMENT: Mammography PERIPHERAL IV DATA: Not applicable SIGNED BY: Omar Soliman Mammo Tech July 04, 2024 12:32 [facility]10-21-2024 NoteHNO ID: [id number] Author: FATUMA TYLER APRN.HEAD TURNING MACHINE OPERATOR Service: ? Author Type: Nurse Practitioner Type: Progress Notes Filed: 07/06/2024 08:25 Note Text: MEDICAL BREAST PATIENT NAME: Shazia Chou July 04, 2024 REFERRAL: She is self referred for an opinion regarding regarding LEFT breast painful lump and bloody nipple discharge HISTORY of PRESENT ILLNESS: Shazia Chou is a 33 year old premenopausal female who presents to the [facility] today for evaluation of left [...] Test performed by chemiluminescent immunoassay. Performed at [facility],[address],[place] [address] She takes a multivitamin daily. BMD: No PERSONAL BREAST HISTORY: Breast biopsy: No Breast cysts: No Breast surgery: No Breast cancer: No CANCER SURVEILLANCE: Mammograms: Date in [facility]: 12/09/23; results - Negative-Left breast only Breast MRI: Date in [facility]: 06/10/22; results - Negative Colonoscopy: [...] discussed with the Patient or Patient's Authorized Belt Knife Feeder. As applicable, any other physician, advance practice provider, medical student, or other health professional student that will be observing or involved in (more content not included)...[facility]10-21-2024 History of Present illness Narrative* Fatuma Tyler APRN.HEAD TURNING MACHINE OPERATOR - 07/04/2024 10:52 AM EDT MEDICAL BREAST PATIENT NAME: Shazia Chou July 04, 2024 REFERRAL: She is self referred for an opinion regarding regarding LEFT breast painful lump and bloody nipple discharge HISTORY of PRESENT ILLNESS: Shazia Chou is a 33 year old premenopausal female who presents to the [facility] today for evaluation of left [...] Test performed by chemiluminescent immunoassay. Performed at [facility],[address] [place] [address] She takes a multivitamin daily. BMD: No PERSONAL BREAST HISTORY: Breast biopsy: No Breast cysts: No Breast surgery: No Breast cancer: No CANCER SURVEILLANCE: Mammograms: Date in [facility]: 12/09/23; results - Negative-Left breast only Breast MRI: Date in [facility]: 06/10/22; results - Negative Colonoscopy: [...] discussed with the Patient or Patient's Authorized Belt Knife Feeder. Asapplicable, any other physician, advance practice provider, medical student, or other health professional student that will be observing or involved in the sensitive examination for educational or training purposes was discussed with the Patient or Authorized Belt Knife Feeder. The Patient or Authorized Belt Knife Feeder has agreed to proceed with the sensitive [...] which included preparing to see the patient, xnrf-bi-zcwc patient care, completing clinical documentation, obtaining and/or reviewing separately obtained history, performing a medically appropriate examination, counseling and educating the patient/family/caregiver, ordering medications, tests, or procedures, and communicating results to the patient/family/caregiver. Fatuma Tyler APRN.IRENE Medical Breast Specialist July 04, 2024 CC: Tevin Carson [id number] [place] [address] documented in this encounterAdena Pike Medical Center10-21-2024 Instructions* Patient Instructions* Naldo Borrego MA - [...] CNP, Medical Breast Specialist Sofia Shelton, MARCO [phone] ([place]) Naldo Borrego, Nursing Agency Manager [phone] ([place]) documented in this encounterAdena Pike Medical Center10-18-2024 Instructions* Patient Instructions* Tevin Carson DO - [...] me in 1 month documented in this encounterAdena Pike Medical Center10-18-2024 NoteHNO ID: [id number] Author: TEVIN CARSON DO Service: ? Author Type: Physician Type: Progress Notes Filed: 07/01/2024 12:18 Note Text: [facility] Family Medicine Visit Assessment and Plan [...] rhythm with sinus arrhythmia at 73 BPM, UT interval 138 ms, normal QRS, poor quality [...] Cognition and Memory: Cognition normal. Comments: [facility] History of Present illness Narrative* Carson, DO Tevin - 07/01/2024 11:03 AM EDT [facility] Family Medicine Visit Assessment and Plan [...] rhythm with sinus arrhythmia at 73 BPM, UT interval 138 ms, normal QRS, poor quality [...] normal. Comments: Slightly anxious documented in this encounterAdena Pike Medical Center10-18-2024 Telephone encounter Note * Telephone Encounter - Naldo Borrego MA - 07/01/2024 10:23 AM EDT Shazia returned my call from yesterday about her appointment on Thursday. Patient stated that she had a mammogram and US done at [facility] recently because she felt a lump in [...] to one anotheror not. She plans to tack picker disk with reports from [facility] [place] before her appointment. I asked her to arrive 30 minutes early to appointment so that we can start uploading the disk and she can fillout paperwork. She was appreciative for the call and information. Naldo Borrego MA [facility]10-18-2024 Miscellaneous Notes* Telephone Encounter - Naldo Borrego MA - 07/01/2024 10:23 AM EDT Shazia returned my call from yesterday about her appointment on Thursday. Patient stated that she had a mammogram and US done at [facility] [place] recently because she felt a lump in [...] to one anotheror not. She plans to tack picker disk with reports from [facility] [place] before her appointment. I asked her to [...] me. Naldo Borrego MA documented in this encounterAdena Pike Medical Center10-17-2024 Telephone encounter Note * Telephone Encounter - Naldo Borrego MA - 06/30/2024 2:43 PM EDT I called and left a message for the patient regarding her appointment 07/04 with Mrs. Tyler in the breast center. I left my contact information for her to reach me. Naldo Borrego MA [facility]09-16-2024 NoteHNO ID: [id number] Author: ORLANDO MARTINEZ MA Service: ? Author Type: Nursing Agency Manager Type: Progress Notes Filed: 05/30/2024 13:52 Note Text: POPULATION HEALTH NAVIGATION OUTREACH Action/FYI Patient called back and I scheduled her for a ED follow up with HEAD TURNING MACHINE OPERATOR in office. Also scheduled patient for est care appointment. Updated PCP field PER Navigation rules. ACM Reason for Outreach Community Monitoring/Network Navigator Pools AND Phone Line: ACM Patient Contacted: Spoke to patient/parent/or legal guardian Patient identified by name and : Yes Community Monitoring/Network Navigator Pools AND Phone Line actions taken: Patient scheduled: ER Follow-up Establish Care Appointment 05/31/2024 in [facility] with LISHA BIANCHI - ED follow up 07/01/2024 in [facility] with TEVIN CARSON - est care 08/05/2024 in [facility] with ROBERTO MCKEON - Fhx of pancreatic cancer, Phx of pancreatic mass Action taken: Marked in OnBase for Schedulers PCP field updated Navigation Signature: Orlando Martinez MA May 30, 2024 1:44 [facility]09-16-2024 History of Present illness Narrative* Orlando [...] ER Follow-up Establish Care Appointment 05/31/2024 in [facility] with LISHA BIANCHI - ED follow up 07/01/2024 in [facility] with TEVIN CARSON - est care 08/05/2024 in [facility] with ROBERTO MCKEON - Fhx of [...] patient to Network Navigation to schedule a [facility] ED 05/23/24 PCP follow-up appointment. Thank you 1st attempt- Called and left a voicemail for patient to call me back directly. Animatu Multimediat message sent Postponing for 2 days. ACM Reason for Outreach Community Monitoring/Network Navigator Pools & Phone Line: ACM Patient Contacted: Unable or unnecessary to reach patient: Left message Athlet[employer] Clubhart message sent Navigation Signature: Orlando Martinez MA [...] patient to Network Navigation to schedule a [facility] ED 05/23/24 PCP follow-up appointment. Thank you Exclusion Criteria - Does not meet exclusion criteria ED DIAGNOSES/REASON(S) FOR ED USE: [place] [facility] OTHER FINDINGS/SUMMARY: Unable to locate ED discharge summary in Care everywhere Patient Attributed To: E Payer: Mauricio HAMMOND Action Taken: Referrals/Routed: Population Health Navigation: Appointment. Router to COMMUNITY MONITORING PSS POOL [[phone]] Contact made with patient: No, Chart review only. Signature: Lenora KHALIL, RN, [facility] Primary Care Transitional Supervisor Estimator And Drafter [facility] [phone] documented in this encounterAdena Pike Medical Center09-16-2024 NoteHNO ID: [id number] Author: ORLANDO MARTINEZ MA Service: ? Author Type: Nursing Agency Manager Type: Progress Notes Filed: 05/30/2024 13:07 Note Text: POPULATION HEALTH NAVIGATION OUTREACH Action/FYI Reason for review or outreach: Chart Review Edyta Priority Emergency Department Utilization REQUESTED ACTION/FYI: Please see ED Utilization summary below: A follow-up appointment is not noted in patient's record. We are forwarding this patient to Network Navigation to schedule a [facility] ED 05/23/24 PCP follow-up appointment. Thank you 1st attempt- Called and left a voicemail for patient to call me back directly. Corpsolv message sent Postponing for 2 days. [facility] Reason for Outreach Community Monitoring/Network Navigator Pools AND Phone Line: [facility] Patient Contacted: Unable or unnecessary to reach patient: Left message Newslinest message sent Navigation Signature: Orlando Martinez MA May 30, 2024 1:01 [facility]09-16-2024 NoteHNO ID: [id number] Author: LENORA YEE RN Service: ? Author [...] patient to Network Navigation to schedule a [facility] ED 05/23/24 PCP follow-up appointment. Thank you Exclusion Criteria - Does not meet exclusion criteria ED DIAGNOSES/REASON(S) FOR ED USE: [place] [facility] OTHER FINDINGS/SUMMARY: Unable to locate ED discharge summary in Care everywhere Patient Attributed To: KERMIT Payer: Mauricio HAMMOND Action Taken: Referrals/Routed: Population Health Navigation: Appointment. Router to [facility] [[id number]] Contact made with patient: No, Chart review only. Signature: Lenora KHALIL, RN, [facility] Primary Care Transitional Supervisor Estimator And Drafter [facility] [phone] Valley Hospital09-16-2024 NotePatient Outreach (AMBCMG) SHAZIA CHOU ([id number]) 1990 F Date Time Provider Department 05/30/24 [...] patient to Network Navigation to schedule a [facility] ED 05/23/24 PCP follow-up appointment. Thank you Exclusion Criteria - Does not meet exclusion criteria ED DIAGNOSES/REASON(S) FOR ED USE: [place] [facility] OTHER FINDINGS/SUMMARY: Unable to locate ED discharge summary in Care everywhere Patient Attributed To: KERMIT Payer: Mauricio HAMMOND Action Taken: Referrals/Routed: Population Health Navigation: Appointment. Router to COMMUNITY MONITORING PSS POOL [[id number]] Contact made with patient: No, Chart review only. Signature: Lenora KHALIL, RN, [facility] Primary Care Transitional Supervisor Estimator And Drafter [facility] [phone] Orlando Martinez MA 05/30/2024 1:07 PM Addendum POPULATION HEALTH NAVIGATION OUTREACH Action/FYI Reason for review or outreach: Chart Review Edyta Priority Emergency Department Utilization REQUESTED ACTION/FYI: Please see ED Utilization summary below: A follow-up appointment is not noted in patient's record. We are forwarding this patient to Network Navigation to schedule a [facility] ED 05/23/24 PCP follow-up appointment. Thank you 1st attempt- Called and left a voicemail for patient to call me back directly. Votizenhart message sent Postponing for 2 days. [facility] Reason for Outreach Community Monitoring/Network Navigator Pools AND Phone Line: [facility] Patient Contacted: Unable or unnecessary to reach patient: Left message Athlet[employer] Clubhart message sent Navigation Signature: Orlando Martinez MA May 30, 2024 1:01 PM Orlando Martinez MA 05/30/2024 1:52 PM Addendum POPULATION HEALTH NAVIGATION OUTREACH Action/FYI Patient called back and I scheduled her for a ED follow up with HEAD TURNING MACHINE OPERATOR in office. Also scheduled patient for est care appointment. Updated PCP field PER Navigation rules. ACM Reason for Outreach Community Monitoring/Network Navigator Pools AND Phone Line: AC Patient Contacted: Spoke to patient/parent/or legal guardian Patient identified by name and : Yes Community Monitoring/Network Navigator Pools AND Phone Line actions taken: Patient scheduled: ER Follow-up Establish Care Appointment 05/31/2024 in [facility] with LISHA BIANCHI - ED follow up 07/01/2024 in [facility] with TEVIN CARSON - est care 08/05/2024 in [facility] with ROBERTO MCKEON - Fhx of [...] Assessed Reason for Visit: ACM EDYTA RN [[id number]] Cmt: ED Utilization review per request of [...] mg by mouth daily at bedtime. - bgezjelnmhur-yvl-vfhe-FA-vit K (BARIATRIC MULTIVITAMINS) 45 mg iron- 800 mcg-120 mcg cap Take by mouth. Problem List As Of Date 05/30/2024 Noted Resolved Poor growth, affecting management of moth*07/03/2008 03/08/2024 Idiopathic intracranial hypertension [G93.2] 11/20/2022 Primary hypertension [I10] 11/20/2022 03/08/2024 Depression [F32.A] 11/20/2022 Hx of gastric bypass [Z98.84] 11/20/2022 H/O foot surgery [Z98.890] 11/20/2022 Bipolar affective d (more content not included)...[facility] 05-12-2024 NoteHNO ID: [id number] Author: ?, ?, ? Service: ? Author Type: ? Type: Progress Notes Filed: 05/12/2024 17:42 Note Text: MCM sent to pt advising her that her Breast MRI has still not been scheduled. Pancreas was completed. Kimberli Malave PSSMiami Valley Hospital08-13-2024 History of Present illness Narrative* Jeff Capellan LPN - 04/26/2024 3:43 PM EDT Outreach message sent documented in this encounterAdena Pike Medical Center08-13-2024 NoteHNO ID: [id number] Author: JEFF CAPELLAN LPN Service: ? Author Type: LICENSED NURSE Type: Progress Notes Filed: 04/26/2024 15:43 Note Text: Outreach message sentMiami Valley Hospital08-13-2024 NotePatient Outreach (JAYCEEMOC) SHAZIA CHOU ([id number]) 1990 F Date Time Provider Department 04/26/24 [...] mg by mouth daily at bedtime. - scgfwknhhtim-jeu-lkso-FA-vit K (BARIATRIC MULTIVITAMINS) 45 mg iron- 800 [...] 03/08/2024 Encounter Status:Closed by JEFF CAPELLAN on 04/26/24[facility] 03-08-2024 Hospital Discharge instructions Patient Education [...] Follow these instructions at home: Medicines Take khst-unn-kpukovt and prescription medicines only as told by your health care provider. Ask your health care provider if the medicine prescribed to you: ?Requires you to avoid driving or using heavy machinery. ?Can cause constipation. You may need to take these actions to prevent or treat constipation: ?Drink enough fluid to keep your urine pale yellow. ?Take bwct-xss-jpwbzgj or prescription medicines. ?Eat foods that are [...] provider. Document Revised: 12/08/2022 Document Reviewed: 01/24/2020 [employer] Patient Education 2022 [employer]. 03/08/2024 15:36:59 Head Injury, Adult Head Injury, [...] Ask your health care provider for a utam-oi-iayg plan for gradually returning to activities. Ask [...] your friends, family, a trusted colleague, and fabric worker fitter about your injury, symptoms, and restrictions. Have them watch for any new or worsening problems. General instructions Take mrvl-krq-reryujc and prescription medicines only as told by [...] provider. Document Revised: 07/13/2020 Document Reviewed: 07/13/2020 [employer] Patient Education 2022 [employer]. 03/08/2024 15:36:59 Muscle Strain Muscle Strain A [...] is not too tight. General instructions Take tgil-rsl-oghfguy and prescription medicines only as told by [...] provider. Document Revised: 11/18/2021 Document Reviewed: 11/18/2021 [employer] Patient Education 2022 [employer]. Follow Up Care 03/08/2024 13:07:25 With:David Zazueta Address: [address], [address] [place] [address]- [phone] Business (1) When:03/11/2024 15:24:14 With:Jennie Durand Address: [address], [facility] [address] [place] [address]- Business (1) When:Within 3 Day(s) [facility]06-25-2024 History of Present illness Narrative* [...] 2024 TIME: 10:01 AM * Mirlande Diaz, mixing machine tender - 03/08/2024 10:00 AM EDT Radiology Service [...] PATIENT PRESENTS WITH AN IMPLANTABLE OR ATTACHED POTTER OR CERAMIC ARTIST: No RADIOLOGY DEPARTMENT: MR; Exam(s) Completed: Body: Pancreas/Biliary PERIPHERAL IV DATA: Site assessment: Clean,Dry and Intact, Site disposition Discontinued SIGNED BY: KING Tovar March 08, 2024 10:35 AM documented in this encounterAdena Pike Medical Center06-25-2024 NoteHNO ID: [id number] Author: MIRLANDE DIAZ MRI Tech Service: Radiology Author Type: Store Stock Help Type: Progress Notes Filed: 03/08/2024 10:36 Note [...] PATIENT PRESENTS WITH AN IMPLANTABLE OR ATTACHED POTTER OR CERAMIC ARTIST: No RADIOLOGY DEPARTMENT: MR; Exam(s) Completed: Body: Pancreas/Biliary PERIPHERAL IV DATA: Site assessment: Clean,Dry and Intact, Site disposition Discontinued SIGNED BY: KING Tovar March 08, 2024 10:35 [facility]06-25-2024 NoteHNO ID: [id number] Author: SOFIA BENAVIDEZ RN Service: Nursing Author [...] Chou DATE: March 08, 2024 TIME: 10:01 [facility]06-25-2024 Instructions* Patient Instructions* Elia Baires DO - 03/08/2024 8:47 AM EDT 1) Schedule appointment with Austin Mata to discuss Adipex. 2) Schedule MRI of breast 3) I can refill the klonopin as needed. 4) Try steroid as needed twice daily 5) Follow-up in [address] Carson to establish care documented in this encounterAdena Pike Medical Center06-25-2024 NoteHNO ID: [id number] Author: ELIA BAIRES DO Service: ? Author [...] was able to establish with psychiatry at [facility]. Says they stopped her Rexulti and switch to Lamictal 75 mg daily. Says this has dramatically improved her symptoms. Currently taking duloxetine 60 mg twice daily and trazodone 50 mg at bedtime. She says that she has only needed to use her clonazepam a few times a week. H (more content not included)...[facility]06-[facility] History of Present illness Narrative* Elia [...] was able to establish with psychiatry at [facility]. Says they stopped her Rexulti and [...] updated today in the History tab of [facility]. REVIEW OF SYSTEMS: All other [...] Dr. Elia Baires DO documented in this encounterAdena Pike Medical Center04-22-2024 Instructions* Patient Instructions* Elia Baires DO - 01/04/2024 10:16 AM EDT 1) Give urine sample today. 2) Placed lab orders. Fast for 12 hours then get labs. 3) I would follow-up with your psychiatrist in January 4) Physical in 1-2 months. documented in this encounterAdena Pike Medical Center04-22-2024 NoteHNO ID: [id number] Author: ELIA BAIRES DO Service: ? Author [...] She says that she is originally from [facility] however came up to here today [...] to establish with a new psychiatrist at [facility] in [place]. She also sees a counselor weekly. Current [...] No psychosis or maryam. Dr. Elia Baires, [facility]04-22-2024 History of Present illness Narrative* Elia [...] She says that she is originally from [facility] however came up to here today [...] to establish with a new psychiatrist at [facility] in [place]. She also sees a counselor weekly. Current [...] Dr. Elia Baires DO documented in this encounterAdena Pike Medical Center01-05-2024 Hospital Discharge instructions* Discharge Instructions* Gamaliel Vickers [...] questions, PLEASE call your doctor or the [facility] at documented in [facility] encounterR[facility] History of Present illness Narrative* Ce Bustamante RN - 09/16/2023 1:25 PM EST PAT phone call for /EGD completed with pt. Date/time/location (entrance C) of surgery/procedure verified with pt. NPO after MN status verified with pt. 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 Instructed pt to take a shower the AM of surgery/procedure and to avoid lotions, creams, jewelry. Encouraged pt to avoid artificial nails and/or nailpolish. Instructed pt to take BP meds with a small sip of water prior to procedure/surgery. [facility]* Encounter Date Diagnosis Assessment Notes Treatment Notes Treatment Clinical Notes Jul, Pancreatic cyst (ICD-10 - K86.2) [facility] Other 10-25-2023 Evaluation note* Encounter Date Diagnosis Assessment Notes Treatment Notes Treatment Clinical Notes Jun, Contact with and (rubio spected) exposure to covid-19 (ICD-10 - Z20.822) Jun,ronchitis (ICD-10 - J40)Acute bronchitis home care material was printed Drink plenty fluids, get plenty of rest. Take the prednisone as prescribed until gone. Use the albuterol inhaler as prescribed as needed for cough or shortness of breath. Take Delsym or Robitussin asneeded for cough. Follow-up with your family physician if no improvement in 2 to 3 days. May returnto work on Thursday. Try to stop smoking. Jun,Smoker (ICD-10 - F17.200) [facility] Other 09-27-2023 NoteHNO ID: [id number] Author: Eileen Alvarez MD Service: ? Author Type: Physician Type: Progress Notes Filed: 06/10/2023 3:39 PM Note Text: [facility] Follow Up / Established Virtual Visit I have communicated my name and active licensure. The patient's identity and physical location were verified at the time of this visit. Either the patient or their legal vendor representatives has been informed of the risks and benefits of -- and alternatives to -- treatment through a remote evaluation and consents to proceed with the evaluation remotely. 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 Idiopathic [...] she agreed. She needs to follow with poultry helper every 6 months. In some patients with [...] her eyes. She has never seen an poultry helper. CSF protein 24, Glu 55, Pro 28, [...] cognition, memory, speech. Cr (more content not included)...[place] [address]-20-2023 Miscellaneous Notes * Telephone Encounter - Clara [...] A DAY IN A WEEK Pharmacy Name: [facility] Pharmacy Phone #: [phone] Fabby Cassidy documented in this encounterAdena Pike Medical Center07-06-2023 Evaluation + Plan note Diagnostic Tests Pending * Zinc Level 03/19/23 * PTH Intact 03/19/23 * Vitamin A Level 03/19/23 * Vitamin B1 03/19/23 Future Scheduled Tests Laboratory* CBC w/ Auto Diff 07/21/22 Radiology* MA Mamm Screen w/CAD if perf and 3D [place] 04/21/22 [facility]05-04-2023 Hospital Discharge instructions Patient Education [...] Follow these instructions at home: Medicines Take xcog-nvu-tvaiugy and prescription medicines only as told by [...] provider. Document Revised: 11/14/2021 Document Reviewed: 11/14/2021 [employer] Patient Education 2022 [employer]. Follow Up Care 01/15/2023 10:48:45 With:Jennie Durand Address: [address] [place] [address]- Business (1) When:01/18/2023 13:32:37 [facility]05-04-2023 Evaluation + Plan noteExtracted from: Title:ED NoteAuthor:Monse GERONIMO, JansenDate:01/15/23 Chest pain (R07.9: Chest suraj n, unspecified) [...] w/CAD if perf and 3D [place] 04/21/22 [facility]03-31-2023 Miscellaneous Notes* Telephone Encounter - Clara Durbin RN - 12/12/2022 3:03 PM EDT Spoke with patient and informed that per [facility] pharmacy, there are remaining [...] A DAY IN A WEEK Pharmacy Name: [facility] Pharmacy Phone #: [phone] Fabby Cassidy documented in this encounterAdena Pike Medical Center03-24-2023 Hospital Discharge instructions Patient Education 12/05/2022 12:15:12 Post Op Patient Instructions - FT (CUSTOM) 12/05/2022 12:15:12 INSTITUTIONAL RESEARCH COORDINATOR - Post Hysterectomy/Laparotomy/Major Surgery-Thiago (CUSTOM) Instructions [...] Das Address: [address] [place] [address]- Business (1) When:6 weeks With:Gal Das Address: [address] [place] [address] Business (1) When:2 weeks Comments:Call for any problems. [facility]03-24-2023 Evaluation + Plan noteExtracted from: Title:ANES Post-operative Note - GeneralAuthor:Vu Maria Jr., DO GDate: 12/05/22 Plan Transfer/Discharge: Transfer/Discharge Discharge when meets criteria ( From PACU to Ambulatory Surgery Unit, and To home ). Extracted from:Title:ANES Pre-operative Note - AdultAuthor:Vu Maria Jr., DO GDate:12/05/22 Plan [place] [employer] of Anesthesiologists (ASA) physical status classification: Class II. Anesthetic Preoperative Plan: Anesthesia General. Future Appointments Appointment Date:01/02/2023 10:00:00 AM Scheduled Provider:Nakia Shah Location:[facility] Appointment Type: Open Future Scheduled Tests Laboratory* CBC w/ Auto Diff 07/21/22 Radiology* MA Mamm Screen w/CAD if perf and 3D Tanmay 04/21/22 [facility]03-09-2023 NoteHNO ID: [id number] Author: Eileen Alvarez MD Service: ? Author Type: Physician Type: Progress Notes Filed: 11/20/2022 10:33 AM Note Text: [facility] New Patient Evaluation [...] due to congenital deformity, seen in the [facility] for: Idiopathic intracranial [...] her eyes. She has never seen an poultry helper. CSF protein 24, Glu 55, Pro 28, [...] due to congenital deformity, seen in the [facility] for: 1. Idiopathic [...] she agreed. She needs to follow with poultry helper every 6 months. In some patients with [...] --start acetazolamide (diamox 500m (more content not included)...[id number] Instructions* Patient Instructions* Eileen Alvarez MD - [...] up in 2-4 months [facility] of Present illness Narrative* Eileen Alvarez MD - 11/20/2022 7:57 AM EST Images from the original note were not included. [facility] New Patient Evaluation [...] due to congenital deformity, seen in the [facility] for: Idiopathic intracranial [...] her eyes. She has never seen an poultry helper. CSF protein 24, Glu 55, Pro 28, [...] due to congenital deformity, seen in the [facility] for: 1. Idiopathic [...] she agreed. She needs to follow with poultry helper every 6 months. In some patients with [...] Take 40 mg by mouth once daily. lvtmrbhagscd-xin-psda-FA-vit K (BARIATRIC MULTIVITAMINS) 45 mg iron- 800 [...] % Lymph% 20 15.9 - 47.3 % Riley% 6 0.0 - 12.0 % Eosin% 3 0.0 - 6.6 % Baso% 1 0.0 - 1.2 % Abs Neut (ANC) 7.64 (H) 1.45 - 7.50 k/uL Abs Lymph 2.18 1.00 - 4.00 K/uL Abs Riley 0.65 0.00 - 0.86 k/uL Abs Eosin [...] which included preparing to see the patient, hepz-uh-kceu patient care, completing clinical documentation, obtaining and/or reviewing separately obtained history, performing a medically appropriate examination, counseling and educating the pat ient/family/caregiver, ordering medications, tests, or procedures, independently interpreting results (not separately reported), communicating results to the patient/family/caregiver, and care coordination (not separately reported). Eileen Alvarez MD documented in this encounterA[facility] Hospital Discharge instructions Patient Education 11/03/2022 13:28:28 [...] height. This can be done either in [place] ([place] or metric measurements. Note that charts are available to help you find your BMI quickly and easily without having to do these calculations yourself. To calculate your BMI in [place] ([place] measurements, your health care provider will: [...] medical problems. BMI can be measured using Mexican measurements or metric measurements. To interpret your [...] 05/12/2005 Document Revised: 08/13/2018 Document Reviewed: 07/14/2018 [employer] Patient Education 2020 [employer]. 11/03/2022 13:28:26 Tobacco Use Disorder Tobacco Use [...] reduces withdrawal symptoms. NRT is available as: ?Yotd-uyl-obmlvrz gums, lozenges, and skin patches. ?Prescription mouth [...] recovery for many people. General instructions Take cbou-pjl-aixpnsj and prescription medicines only as told by your health care provider. Check with your health care provider before taking any new prescription or qzbf-dby-cbeshxj medicines. Decide on a friend, family member, or smoking quit-line (such as 1-419-OKIT-NOW in the [place] that you can call [...] 05/06/2005 Document Revised: 08/18/2018 Document Reviewed: 08/18/2018 [employer] Patient Education 2020 [employer]. 11/03/2022 13:28:23 Alcohol Abuse and Dependence Information, [...] for Disease Control and Prevention: www.cdc.gov National [place] on Alcohol Abuse and Alcoholism: www.niaaa.nih.gov Alcoholics [...] 08/25/2017 Document Revised: 12/20/2019 Document Reviewed: 11/08/2019 [employer] Patient Education 2019 [employer]. 11/03/2022 13:28:19 BMI for Adults BMI for [...] height. This can be done either in [place] ([place] or metric measurements. Note that charts are available to help you find your BMI quickly and easily without having to do these calculations yourself. To calculate your BMI in [place] ([place] measurements, your health care provider will: [...] medical problems. BMI can be measured using Mexican measurements or metric measurements. To interpret your [...] 05/12/2005 Document Revised: 08/13/2018 Document Reviewed: 07/14/2018 [employer] Patient Education 2020 [employer] 10/27/2022 11:56:27 Alcohol Abuse and Dependence [...] for Disease Control and Prevention: www.cdc.gov National [place] on Alcohol Abuse and Alcoholism: www.niaaa.nih.gov Alcoholics [...] 08/25/2017 Document Revised: 12/20/2019 Document Reviewed: 11/08/2019 [employer] Patient Education 2020 [employer]. Follow Up Care 10/15/2022 11:28:56 With:Nakia Shah Address: [address] [place] [address] [place] [address]- When:Within 2 Month(s) Comments:f/u smoking cessation and BP [facility] 01-11-2023 Hospital Discharge [...] reduces withdrawal symptoms. NRT is available as: ?Rpnc-dcy-scczliz gums, lozenges, and skin patches. ?Prescription mouth [...] recovery for many people. General instructions Take msxi-gam-otzfisv and prescription medicines only as told by your health care provider. Check with your health care provider before taking any new prescription or whaa-bjz-ljrfyng medicines. Decide on a friend, family member, or smoking quit-line (such as 1-825-JVOS-NOW in the [place] that you can call [...] 05/06/2005 Document Revised: 08/18/2018 Document Reviewed: 08/18/2018 Elsevier Patient Education 2020 [employer]. 09/24/2022 07:23:47 BMI for Adults BMI for [...] height. This can be done either in [place] ([place] or metric measurements. Note that charts are available to help you find your BMI quickly and easily without having to do these calculations yourself. To calculate your BMI in [place] ([place] measurements, your health care provider will: [...] medical problems. BMI can be measured using Mexican measurements or metric measurements. To interpret your [...] 05/12/2005 Document Revised: 08/13/2018 Document Reviewed: 07/14/2018 [employer] Patient Education 2020 [employer]. 09/24/2022 07:23:45 Alcohol Use Disorder Alcohol Use [...] centers. Follow these instructions at home: Take ktsa-whr-yepidst and prescription medicines only as told by [...] 10/08/2005 Document Revised: 08/13/2018 Document Reviewed: 05/28/2017 [employer] Patient Education 2020 [employer]. 09/24/2022 07:23:42 Borderline Personality Disorder, Adult Borderline [...] with BPD should do these things: Take mfov-azv-nbqjtwf and prescription medicines only as told by [...] important. Where to find more information National [place] on Mental Illness: www.marivel.org [place] National [place] of Mental Health: www.nimh.nih.gov Contact a health [...] 12/16/2011 Document Revised: 08/13/2018 Document Reviewed: 11/05/2017 [employer] Patient Education 2020 [employer]. 09/24/2022 07:23:39 Managing Bipolar Disorder Managing Bipolar [...] Follow these instructions at home: Medicines Take gcip-und-vwlkeor and prescription medicines only as told by your health care provider or pharmacist. Ask your pharmacist what xghl-lgk-ukpwgxa cold medicines you should avoid. Some medicines [...] services is a problem, search for a [facility] or [facility] mental health care center. Public [...] 12/31/2017 Document Revised: 12/23/2019 Document Reviewed: 12/31/2017 [employer] Patient Education 2019 [employer]. Follow Up Care 09/16/2022 13:23:11 With:Aimee Walker CNP Address: [address] [place], [place] [address]jac[place] [address]- [phone] When:3 months [facility] 12-09-2022 Hospital Discharge instructions Patient Education 08/22/2022 11:12:56 Tension Headache, Adult, Bvwz-rd-Lslu Tension Headache, Adult A tension headache is pain, pressure, or aching in your head. Tension headaches can last from 30 minutes to several days. Follow these instructions at home: Managing pain Take dvuy-ihn-sgqdnsc and prescription medicines only as told by [...] 11/25/2010 Document Revised: 08/13/2018 Document Reviewed: 12/11/2017 [employer] Patient Education 2020 [employer]. Follow Up Care 08/14/2022 12:38:29 With:Rita SNOWDEN, IGGY Roberson, PED Address: [address], [place] [address] When:1 month only if needed Comments:40 mins [facility] 12-05-2022 Hospital Discharge [...] feet clean and dry. General instructions Take bqdk-ths-xaivubk and prescription medicines only as told by [...] 09/26/2016 Document Revised: 06/16/2019 Document Reviewed: 06/16/2019 [employer] Patient Education 2020 [employer]. 08/18/2022 19:56:48 Foot Sprain Foot Sprain A [...] fully hardened. This may takeseveral hours. Take wrcj-cds-yjhuyfe and prescription medicines only as told by [...] 02/20/2003 Document Revised: 09/04/2018 Document Reviewed: 09/04/2018 [employer] Patient Education 2020 [employer]. 08/18/2022 19:56:48 Elastic Bandage and RICE Therapy [...] limityour activities and whether you should start vrjwa-ps-pczbqg exercises for your injury. Ice Ice your [...] 02/20/2003 Document Revised: 05/21/2018 Document Reviewed: 05/21/2018 [employer] Patient Education [employer]. Follow Up Care 08/18/2022 17:21:15 With:Hilton Gillis Address: [address] [place], [place] [id number] Business (1) When:08/21/2022 19:10:21 With:Aimee Walker Address:Unknown When:Within 3 Day(s) [facility]11-29-2022 Procedure [facility]11-29-2022 Progress note Author Lizzeth Malave [facility] August 12, 2022 10:46amNote Date/TimeNovember 2021 10:[address] [address] Hospitalist Progress Note Signed Patient: Shazia Chou MR#: [id number] : 1990 Acct:[id number] Age/Sex: 31 / F Adm Date: 2 Loc: 4N Room: [id number] Type: ADM INOo Attending Dr: Lizzeth Malave MD Copies to: ~ Date of Service: 08/12/2022 Subjective Subjective Narrative: Shazia Chou is a 31yo F. She was transferred here last night from [facility] with worsening headache and blurry vision with concerns for intracranial hypertension. She has had the symptomssince Thursday and stated her home blood pressure [...] intact bilaterally. No swelling or cords in thecalves bilaterally, no edema in the ankles bilaterally. [...] Flu Vac Quad (36month+)Pf 0.5 Ml Syringe [id number] IM 08/13/22 09:01 .ONCE ONE Omeprazole 20 mg 08/12/22 09:00 08/12/22 09:21 Omeprazole 20 Mg Capsule.Dr TALAMANTES 08/12/23 08:59 20 mg DAILY CAITIE Administration [...] psychiatric medications, patient stopped taking Trileptal 4 daysago due to concerns causing headaches Continue other psychiatric medications 3. Anemia, with elevated MCV, check B12/folic acid 4. Subjective palpitation, telemetry no arrhythmias, EKG normal sinus with ventricular rate 66, with T wave inversions in V3 V2 Documented By: Lizzeth Malave MD 08/12/22 0944 Signed By: <Electronically signed by Lizzeth Malave MD> 08/12/22 1046 [facility] Work Phone: 1(846) 214-381511-29-2022 Consult note Author Kenrick Lee [facility] August 12, 2022 4:21pmNote Date/TimeNovember 2021 8:13[place] [address] Neurology Consult Note Signed Patient: Shazia Chou MR#: [id number] : 1990 Acct:[id number] Age/Sex: 31 / F Adm Date: 2 Loc: 4N Room: [id number] Type: ADM INOo Attending Dr: Lizzeth Malave MD Copies to: DO Jennie Wise ANP-C Ruta Semaskiene, MD~ HPI Consult Date: 08/12/22 [employer] Specialist: ASTON Bro with Dr Lee Reason for consult: Headache, blurred vision Consult Narrative HPI: Patient is a 31-year-old female with medical history of bipolar, personality disorder, depression, and tobacco use in addition to 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 She has been seen in neurological consultation with request of the hospital service for headache and blurred vision. Patient initially presented to [facility] and was transferred to [facility] for evaluation. She was seen in the [place] ER on 08/08/2022 with similar symptoms and [...] this is when she called EMS. At [facility] she had a CT scan [...] contributing to the headacheand hypertension. [facility] 115/71. CBC and CMP unremarkable. She still has a headache butstates it is improved. Rates it 4 out [...] extremity from prior surgery CEREBELLAR EXAM: * Yjlfsf-rb-peyn and alternating movements are intact and normal in bilateral upper extremities * Wooj-wt-sdhi and alternating movements are intact and normal [...] thrombosis. We will get an MRI and anMRV. We will considerlumbar puncture based on these results. Evaluation at [facility]: * CT scan head is [...] once daily). Okay [facility]. Documented By: EDINSON Dias [id number] Signed By: <Electronically signed by EDINSON Niño> 08/12/22 0958 <Electronically signed by Kenrick Lee DO> 08/12/22 1621 [facility] Work Phone: 1(188) 471-903011-28-2022 History and physical note Author Sangeetha Peña [facility] August 11, 2022 9:43pmNote Date/TimeNov2021 9:08[place] [address] Hospitalist H&P Signed Patient: Shazia Chou MR#: [id number] : 1990 Acct:[id number] Age/Sex: 31 / F Adm Date: 2 Loc: Room: [address] [place] [address] Type: ADM IN Attending Dr: Erin Barahona MD Copies to: MD Erin Mcwilliams MD~ HPI DATE OF EXAMINATION: 08/11/22 CHIEF COMPLAINT: Headache with blurry vision HISTORY OF PRESENT ILLNESS: Patient is a pleasant 31-year-old female with history of borderline personality disorder, bipolar disorder and depression. She was accepted by daytime hospitalist when contacted by [facility] physician due to concern for headache and blurry vision. On examination on the floor she was sitting comfortably withblood pressure 115 systolic. She is complaining of headache and some blurry vision. Patient mentioned having the symptoms since Thursday she described a headache behind her eyes on front[place] occipital region. Headache gets worse on standing associated with nausea. She has also noticed having blurry vision which she describes as the objects she is seeing is clear but everything looks blurry behind. She also mentioned feeling slight cold for last few days and noted her blood pressurehas been on the higher side. Denies head injury, recent fall, fever, chills, chest pain, abdominal pain or dysuria. She was seenin the [place] on 08/08 with similar symptoms. [facility]. Patient continues to have symptoms and mentioned earlier today she was having some tunnel vision and dry heaving which brought her to the ER. Recent COVID test was negative as well. In the ERCT head showed nonexpanded partially empty sella which wasunchanged from prior imaging. No mass or hemorrhage seen. Her labs showed lactic acid 1.5, potassium 3.4, WBC 15.3, hemoglobin 13.3, TSH 1.7 and creatinine 0.71. Urine analysis not suggestive of UTI.Patient also mentioned that she was recently started [...] vision: Plan Patient has been transferred from [facility] when she presented with complaint of headache and blurry vision. During my evaluation her blood pressure is in 115 systolic and complaining of headache with blurry vision. Denies diplopia with no pain in extraocular movement. There is concern for possible idiopathic intracranial hypertension and patient has been transferred to [facility] for further management and neurology evaluation. Will obtain MRIbrain with and without contrast along with MRV. Patient also mentioned being weaned off Topamax and was started on Trileptal which she stopped taking. IV hydralazine as needed for accelerated hypertension. Continue other home me dications. DVT prophylaxis with SCDs as patient might require lumbar puncture. Documented By: Sangeetha Peña MD 08/11/222058 Signed By: <Electronically signed by Sangeetha Peña MD> 08/11/222142 [facility] Work Phone: [phone]) 355-643811-25-2022 Evaluation + Plan noteExtracted from:Title: ED NoteAuthor:Bakari Chester DODate:08/08/22 Asymptomatic hypertension (I 10: Essential (primary) hypertension) Headache (R51.9: Headache, unspecified) Orders: APAP/butalbital/caffeine, 1 cap(s), Oral, q4hr for headache, 12 cap(s), Refill(s) 0, [id number], 162, cm, 08/08/22 9:11:00 EST, Height/Length Dosing, 83.1, kg, 08/08/22 9:11:00 EST, Weight Dosing ondansetron, 4 mg = 1 tab(s), Oral, q8hr, PRN Nausea/Vomiting, # 12 tab(s), Refills(s) 0, Pharmacy:[id number], 162, cm, 08/08/22 9:11:00 EST, Height/Length Dosing, 83.1, kg, 08/08/22 9:11:00EST, Weight Dosing Automated Diff Basic Metabolic Panel Beta hCG Qual CBC w/ Auto Diff CT Head or Brain w/o Contrast eGFR Influenza A&B Ag Rapid COVID Antigen ([facility] UA With Cult Reflex Future Scheduled Tests Laboratory* CBC w/ Auto Diff 07/21/22 Radiology* MA Mamm Screen w/CAD if perf and 3D Tanmay 04/21/22 [facility]11-25-2022 Hospital Discharge instructions Patient Education [...] health care provider to lose weight. Take fyic-zpr-ipzxhct and prescription medicines only as told by [...] 11/09/2002 Document Revised: 08/13/2018 Document Reviewed: 07/22/2017 [employer] Patient Education 2020 [employer]. Follow Up Care 08/08/2022 09:04:11 With:Kenrick Lee Address: [address], [place] [address] Business (1) When:08/11/2022 11:38:22 Comments:Follow-up with Dr. [...] you develop any new or worsening symptoms. [facility]11-07-2022 Evaluation + Plan note Future Scheduled Tests Laboratory* CBC w/ Auto Diff 07/21/22 Radiology* MA Mamm Screen w/CAD if perf and 3D Tanmay 04/21/22 [facility] 11-07-2022 Evaluation + Plan note Future Scheduled Tests Laboratory* CBC w/ Auto Diff 07/21/22 [facility]11-07-2022 Hospital Discharge instructions Patient Education [...] Follow these instructions at home: Medicines Take tdma-rzc-ibqamde and prescription medicines only as told by your health care provider or pharmacist. Ask your pharmacist what vcjy-wui-guefayy cold medicines you should avoid. Some medicines [...] services is a problem, search for a [facility] or [facility] mental health care center. Public [...] 12/31/2017 Document Revised: 12/23/2019 Document Reviewed: 12/31/2017 [employer] Patient Education 2020 [employer] 07/21/2022 11:21:57 Tobacco Use Disorder Tobacco [...] reduces withdrawal symptoms. NRT is available as: ?Wkau-nbh-senkjsx gums, lozenges, and skin patches. ?Prescription mouth [...] recovery for many people. General instructions Take itbc-rse-ofyrigx and prescription medicines only as told by your health care provider. Check with your health care provider before taking any new prescription or abgu-bls-wxgxnrb medicines. Decide on a friend, family member, or smoking quit-line (such as 9-065-XBLH-NOW in the [place] that you can call [...] 05/06/2005 Document Revised: 08/18/2018 Document Reviewed: 08/18/2018 [employer] Patient Education 2020 [employer]. 07/21/2022 11:21:55 BMI for Adults BMI for [...] height. This can be done either in [place] ([place] or metric measurements. Note that charts are available to help you find your BMI quickly and easily without having to do these calculations yourself. To calculate your BMI in [place] ([place] measurements, your health care provider will: [...] medical problems. BMI can be measured using [place] measurements or metric measurements. To interpret your [...] 05/12/2005 Document Revised: 08/13/2018 Document Reviewed: 07/14/2018 [employer] Patient Education 2020 [employer] 07/21/2022 11:21:53 Leukocytosis Leukocytosis Leukocytosis means [...] Follow these instructions at home: Medicines Take fgcd-llw-gcjqvlz and prescription medicines only as told by [...] 08/19/2012 Document Revised: 05/26/2019 Document Reviewed: 05/26/2019 [employer] Patient Education 2019 [employer]. Follow Up Care 07/18/2022 10:46:12 With:Aimee Walker CNP Address: When: only if needed [facility] 11-04-2022 Miscellaneous Notes* Telephone Encounter - Cat Rojo LPN - 07/18/2022 11:04 AM EDT Call placed to patient, no answer. Left message for patient to proceed with nicotine testing prior to scheduling. Please transfer to plastic surgery nurse if patient returns call with questions. documented in this encounterCleveland [id number] Evaluation + Plan note Future Scheduled Tests Radiology* MRI Breast w/o and w/ Contrast, Left 05/13/22 * MA Mamm Screen w/CAD if perf and 3D [place]may 04/21/22 [facility] [place] [id number] Hospital Discharge instructions Patient Education 05/13/2022 10:45:43 [...] ?Hypothyroidism. ?Polycystic ovarian syndrome (PCOS). ?Binge-eating disorder. ?[place] syndrome. Taking certain medicines, such as steroids, [...] food choices, such as grocery stores and [employer] markets. What are the signs or symptoms? [...] and how much exercise you get. Take ebwk-uwp-tplenbp and prescription medicines only as told by [...] 05/05/2019 Document Reviewed: 05/05/2019 Elsevier Patient Education 2019 [employer]. [facility] [place] [id number] Evaluation + Plan note Future Scheduled Tests Radiology* MA Mamm Screen w/CAD if perf and 3D Tan[place] 04/21/22 [facility]08-08-2022 Hospital Discharge instructions Patient Education [...] height. This can be done either in [place] ([place] or metric measurements. Note that charts are available to help you find your BMI quickly and easily without having to do these calculations yourself. To calculate your BMI in [place] ([place] measurements, your health care provider will: [...] medical problems. BMI can be measured using [place] measurements or metric measurements. To interpret your [...] 05/12/2005 Document Revised: 08/13/2018 Document Reviewed: 07/14/2018 [employer] Patient Education 2020 [employer]. 04/21/2022 10:14:51 Lymphadenopathy Lymphadenopathy Lymphadenopathy means that [...] at home: Get plenty of rest. Take wwka-jhr-ocjdepy and prescription medicines only as told by your health care provider. Your health care provider may recommend gkde-cfi-slftiba medicines for pain. If directed, apply heat [...] 06/09/2009 Document Revised: 08/13/2018 Document Reviewed: 07/16/2018 [employer] Patient Education 2020 [employer]. 04/21/2022 10:14:49 Tobacco Use Disorder Tobacco Use [...] reduces withdrawal symptoms. NRT is available as: ?Sxsz-qzs-dodskmv gums, lozenges, and skin patches. ?Prescription mouth [...] recovery for many people. General instructions Take qdii-ido-zlpidsl and prescription medicines only as told by your health care provider. Check with your health care provider before taking any new prescription or bpbx-qms-xgrcukn medicines. Decide on a friend, family member, or smoking quit-line (such as 0-341-JXNL-NOW in the [place] that you can call [...] 05/06/2005 Document Revised: 08/18/2018 Document Reviewed: 08/18/2018 [employer] Patient Education 2020 [employer] Follow Up Care 04/17/2022 09:51:05 With:Aimee Walker CNP Address: When: only if needed [facility] 08-07-2022 Hospital Discharge [...] at home: Get plenty of rest. Take daun-svk-wperrgh and prescription medicines only as told by your health care provider. Your health care provider may recommend pzqu-dlj-jaxkfwa medicines for pain. If directed, apply heat [...] 06/09/2009 Document Revised: 08/13/2018 Document Reviewed: 07/16/2018 [employer] Patient Education 2020 [employer] Follow Up Care 04/20/2022 14:55:22 With:Aimee Walker Address: [address], [place] [address] [phone] Business (1) When:04/23/2022 16:08:48 Comments:Follow-up with your primary care provider in 3 to 5 days. If symptoms worsen, do not improve, or new symptoms arise please report back to emergency department for further evaluation. [facility]08-07-2022 Evaluation + Plan noteExtracted from: Title:ED NoteAuthor:Dony Alegre PA-CDate:04/20/22 Axillary lymphadenopathy (R5 9.0: Localized enlarged lymph nodes) Orders: naproxen, 500 mg = 1 tab(s), Oral, BID, PRN for pain, # 20 tab(s), Refills(s) 0, Pharmacy: [facility]/pharmacy #[id number], 170, cm, 04/20/22 15:01:00 EDT, Height/Length Dosing, 81.5, kg, 04/20/22 15:01:00 EDT, Weight Dosing Automated Diff Basic Metabolic Panel CBC w/ Auto Diff eGFR XR Chest 2 Views Future Appointments Appointment Date:04/21/2022 09:40:00 AM Scheduled Provider:Aimee Walker CNP Location:[facility] Appointment Type: Open [facility]07-21-2022 Hospital Discharge instructions Patient Education [...] 03/15/2012 Document Revised: 08/24/2019 Document Reviewed: 08/24/2019 [employer] Patient Education 2020 [employer]. Follow Up Care 04/03/2022 16:59:04 With:Aaron BONILLAAimee Address: [phone] When:04/06/2022 [facility]06-17-2022 Miscellaneous Notes* Telephone Encounter - Lina Chavez RN - 02/28/2022 3:[address] Mckee, patient must be 4 weeks nicotine free prior to scheduling and collection of cosmetic payment. documented in this [facility] History of Present illness Narrative* Amee Gonzalez PA-C - 02/12/2022 10:38 AM EDT Images from the original note were not included. Otolaryngology Consultation/Evaluation Note Head and Neck [place] ASSESSMENT: Burning tongue (primary encounter diagnosis) Irritation of oral cavity PLAN: - Oral mucosa at floor of mouth, Hinsdale's ducts, and frenulum irritated with mild erythema [...] Take 40 mg by mouth once daily. soofowoygjbe-cmu-bljs-FA-vit K (BARIATRIC MULTIVITAMINS) 45 mg iron- 800 [...] and tender to palpation specifically around b/l Hinsdale's ducts and frenulum. Ventral aspect of tongue [...] Level: 3 - Low documented in this encounterAden[facility] Hospital Discharge instructions Patient Education 02/06/2022 09:33:48 [...] reduces withdrawal symptoms. NRT is available as: ?Ynff-gqy-ylvopsu gums, lozenges, and skin patches. ?Prescription mouth [...] recovery for many people. General instructions Take xscg-ett-clrsztb and prescription medicines only as told by your health care provider. Check with your health care provider before taking any new prescription or vzqd-ofs-kqegzpd medicines. Decide on a friend, family member, or smoking quit-line (such as 2-446-VAME-NOW in the [place] that you can call [...] 05/06/2005 Document Revised: 08/18/2018 Document Reviewed: 08/18/2018 [employer] Patient Education 2020 [employer]. 02/06/2022 09:33:46 BMI for Adults BMI for [...] height. This can be done either in [place] ([place] or metric measurements. Note that charts are available to help you find your BMI quickly and easily without having to do these calculations yourself. To calculate your BMI in [place] ([place] measurements, your health care provider will: [...] medical problems. BMI can be measured using Mexican measurements or metric measurements. To interpret your [...] 05/12/2005 Document Revised: 08/13/2018 Document Reviewed: 07/14/2018 [employer] Patient Education 2020 [employer]. Follow Up Care 02/05/2022 13:43:34 With:Aimee Walker CNP Address: When: only if needed [facility] 05-18-2022 Hospital Discharge [...] height. This can be done either in [place] ([place] or metric measurements. Note that charts are available to help you find your BMI quickly and easily without having to do these calculations yourself. To calculate your BMI in [place] ([place] measurements, your health care provider will: [...] medical problems. BMI can be measured using Mexican measurements or metric measurements. To interpret your [...] 05/12/2005 Document Revised: 08/13/2018 Document Reviewed: 07/14/2018 [employer] Patient Education 2020 [employer]. 01/29/2022 11:02:54 Complicated Grief Complicated Grief Grief [...] friends and loved ones. General instructions Take syte-bvr-todwfjd and prescription medicines only as told by [...] 08/31/2006 Document Revised: 08/13/2018 Document Reviewed: 06/16/2018 [employer] Patient Education 2020 [employer]. 01/29/2022 11:02:50 Alcohol Abuse and Dependence Information, [...] for Disease Control and Prevention: www.cdc.gov National [place] on Alcohol Abuse and Alcoholism: www.niaaa.nih.gov Alcoholics [...] 08/25/2017 Document Revised: 12/20/2019 Document Reviewed: 11/08/2019 [employer] Patient Education 2019 [employer]. 01/29/2022 11:02:46 Managing Bipolar Disorder Managing Bipolar [...] Follow these instructions at home: Medicines Take joid-gzk-fnecutu and prescription medicines only as told by your health care provider or pharmacist. Ask your pharmacist what dnqj-moc-dvllwcu cold medicines you should avoid. Some medicines [...] a problem, search for a local or [facility] care center. Public [...] 12/31/2017 Document Revised: 12/23/2019 Document Reviewed: 12/31/2017 [employer] Patient Education 2020 [employer]. [facility] 05-02-2022 Miscellaneous Notes* [...] another consult she would. Please advise at [phone] documented in this encounterAdena [facility]04-15-2022 Miscellaneous Notes* Telephone Encounter - Rocio Hester [...] understood. Rocio Hester Ma documented in this encounterAdena [facility]05-21-2021 History of Present illness Narrative* Radha Jara - 02/01/2021 9:47 AM EDT CLINICAL PHARMACY NOTE: MEDS TO BEDS Total # of Prescriptions Filled: 2 The following medications were delivered to the patient: Percocet 5-325mg Augmentin 875-125mg Additional Documentation: delivered to patient in room 236 02/01 at 9:44am. Co- pay paid with credit on [employer] ($4.31). * Gamaliel Vickers DO - 01/31/2021 [...] improvement * Melissa Singh [facility] - 01/30/2021 9:03 PM EDT Images [...] Singh RPH 19:00 PM documented in this encounterClodico Phone: [phone]) 621-662205-15-2021 History of Present illness Narrative* Jasmine Burch RN - 01/26/2021 1:51 PM EDT Infusion complete, no complications, IV out and dressing applied. Encouraged patient to call with any questions. Patient left unit with steady gait to private residence. documented in this encounterAdams [facility] HospitalNanoCon[facility] Technologies Phone: [phone]) 220-850604-27-2021 History of Present illness Narrative* Rdaha Jara - 01/08/2021 5:59 PM EDT CLINICAL PHARMACY NOTE: MEDS TO [facility] Patient?: No Total # of Prescriptions Filled: 3 The following medications were delivered to the patient: Percocet 5-325mg Promethazine 25mg Pantoprazole 40mg Total # of Interventions Completed: 0 Time Spent (min): 0 Additional Documentation: delivered to patient in room 247 01/08 at 5:43pm. Co- pay paid with [employer] ($7.02). * Gal Atwood DO - 01/08/2021 [...] Morbid obesity with BMI of 40.0-44.9, adult ([facility]) [E66.01, Z68.41] 05/16/2020 30 y.o. [...] obtained for OR 01-07-21 documented in this [employer] Phone: 1(699) 681-163004-27-2021 Hospital Discharge instructions* Instructions* Gamaliel Vickers, - 01/08/2021 Discharge Instructions for Surgery You had a Tian-en- Y Gastric Bypass (57495) surgery to treat obesity. Recovery from this [...] scheduled appointment, please call the office at [phone]. Call Your Doctor If Any of the [...] emergency, call 911 immediately. documented in this [facility] Phone: 1(939) 338-868904-12-2021 Hospital Discharge instructions* Instructions* Mahesh Price APRN - HEAD TURNING MACHINE OPERATOR - 12/24/2020 Images from the original [...] you home after your procedure. Your bus driver/monitor must be 18 years of age or [...] questions, call the Pre-Admission Testing Unit at [phone]. Day of Surgery/Procedure As a patient at [facility] you can expect quality medical and nursing care that is centered on your individual needs. Our goal is to make your surgical experience as comfortableas possible . Directions to the Surgery Center [facility] is located at [address] [place] [address]. Please pull into the Emergency parking lot and stop at the gauge maker arcos. We offer free gauge maker service for all our surgery patients, if you choose not to have gauge maker parking we have additional parking across the street.You will enter the facility following the [facility] sign. Please stop at the receptionist airline lounge desk where you will be checked in by the staff. If you have any questions please call [phone]. Transportation after your procedure. You will need a friend or family member to drive you home after your procedure. Your bus driver/monitor must be18 years of age or older [...] You may shave your face or neck. [place] your teeth but do not swallow water. [...] or the day of surgery, please call [phone], or [phone] documented in this [facility] Phone: 1(304) 730-297404-12-2021 History of Present illness Narrative* Mahesh Price, CEDRIC - HEAD TURNING MACHINE OPERATOR - 12/24/2020 10:30 AM EDT Anesthesia Focused [...] Nicole for therapy Borderline personality disorder (HCC) [facility], therapist Jacki Nicole Depression Flat feet, bilateral Foot pain, bilateral Dr. Octavio Sims, meat specialist GERD (gastroesophageal reflux disease) managed by Dr. [...] BLEVINS 12/24/20 11:38 AM documented in this [facility] Work Phone: evaluation + Plan note No data available for this section [facility] Evaluation + Plan note Referrals to Other Providers Referred by: Aimee Walker CNP [facility] Evaluation + Plan note Future Appointments Appointment Date:04/04/2022 02:40:00 PM Scheduled Provider:Rahul Salinas DO [facility] Future Appointments Appointment Date:04/22/2022 09:15:00 AM Scheduled [facility]: [facility] Type:MA Diagnostic (FT) Appointment Date:04/22/2022 10:00:00 AM Scheduled Provider: [facility] Type:US Breast (FT) Future Scheduled Tests Radiology* US Breast Unilateral Lt Complete 04/21/22 * US Breast Unilateral Rt Complete 04/21/22 * MA Mamm Diag w/CAD if perf and 3D Tan[place] 04/22/22 * MA Mamm Screen w/CAD if perf and 3D [place] 04/21/22 [facility] Evaluation + Plan note Future Appointments Appointment Date:08/22/2022 10:20:00 AM Scheduled Provider:Rahul Salinas DO Location[facility] Appointment Type: Hospital Follow Up w/TCM Future Scheduled Tests Laboratory* CBC w/ Auto Diff 07/21/22 Radiology* MA Mamm Screen w/CAD if perf and 3D [place] 04/21/22 [facility] Future Appointments Appointment Date:11/03/2022 01:00:00 PM Scheduled Provider:Nakia Shah Location:[facility] Appointment Type:FM Open Future Scheduled Tests Laboratory* CBC w/ Auto Diff 07/21/22 Radiology* MA Mamm Screen w/CAD if perf and 3D [place] 04/21/22 [facility] Future Appointments Appointment Date:01/02/2023 10:00:00 AM Scheduled Provider:Nakia Shah Location:[facility] Appointment Type:FM Open Future Scheduled Tests Laboratory* CBC w/ Auto Diff 07/21/22 Radiology* MA Mamm Screen w/CAD if perf and 3D [place] 04/21/22 [facility] MEDNAXaluation + Plan note Future Appointments Appointment Date:12/05/2022 09:00:00 AM Scheduled Provider: Location:[facility] Appointment Type:Surgery FT Appointment Date:01/02/2023 10:00:00 AM Scheduled Provider:Nakia Shah Location:[facility] Appointment Type:FM Open Future Scheduled Tests Laboratory* CBC w/ Auto Diff 07/21/22 Radiology* MA Mamm Screen w/CAD if perf and 3D [place] 04/21/22 [facility] Future Appointments Appointment Date:12/25/2023 10:15:00 AM Scheduled Provider:Otto Larsen MD [facility]iology New Patient (FT) [facility] Future Appointments Appointment Date:11/10/2024 08:00:00 AM Scheduled Provider: [facility] Appoint[facility] Type:US Abdominal/Pelvis (FT) Future Scheduled Tests Radiology* US Abdomen, Limited 11/10/24 [facility] evaluation + Plan note Future Appointments Appointment Date:11/15/2024 01:45:00 PM Scheduled Provider:Orlando Kate PA-C Location:[facility] [place] Appointment Type:Pain Management - New (FT) [facility] evaluation + Plan note Future Appointments Appointment Date:12/19/2024 10:15:00 AM Scheduled Provider:Orlando Kate PA-C Location:[facility] [place] Appointment Type:Pain Management - Follow Up (FT) [facility] evaluation + Plan note Future Appointments Appointment Date:01/24/2025 09:30:00 AM Scheduled Provider: Location:[facility] Appointment Type:Surgery FT Appointment Date:01/27/2025 10:15:00 AM Scheduled Provider:Orlando Kate PA-C Location:[facility] [place] Appointment Type:Pain Management - Follow Up (FT) [facility] evaluation + Plan note Future Appointments Appointment Date:02/13/2025 08:30:00 AM Scheduled Provider: Location:[facility] Appointment Type:Surgery FT Appointment Date:02/15/2025 01:30:00 PM Scheduled Provider:Orlando Kate PA-C Location:[facility] [place] Appointment Type:Pain Management - Follow Up (FT) Appointment Date:02/16/2025 01:00:00 PM Scheduled Provider:Jak Peace MD Location:[facility] Appointment Type:Cardiology New Patient (FT) [facility] evaluation + Plan note Future Appointments Appointment Date:02/17/2025 09:15:00 AM Scheduled Provider: Location:[facility] Appointment Type:Surgery FT Appointment Date:02/20/2025 02:30:00 PM Scheduled Provider:Orlando Kate PA-C Location:[facility] [place] Appointment Type:Pain Management - Follow Up (FT) Appointment Date:03/16/2025 02:30:00 PM Scheduled Provider:aJk Peace MD Location:[facility] Appointment Type:Cardiology Follow Up (FT) Future Scheduled Tests Radiology* NM Myocardial Spect Rest/Stress 1 Day 02/16/25 [facility] Evaluation + Plan note Future Appointments Appointment Date:03/13/2025 [...] NM Myocardial Spect Rest/Stress 1 Day 03/13/25 [facility] evaluation + Plan note Future Appointments Appointment Date:03/03/2025 08:30:00 AM Scheduled Provider: Location:[facility] Appointment Type:Surgery FT Appointment Date:03/09/2025 12:30:00 PM Scheduled Provider:Babar Mayers DO Location:[facility] [place] Appointment Type:Pain Management - Follow Up [...] NM Myocardial Spect Rest/Stress 1 Day 03/13/25 [facility] evaluation + Plan note Future Appointments Appointment Date:03/27/2025 08:45:00 AM Scheduled Provider: Location:[facility] Appointment Type:Surgery FT Appointment Date:04/17/2025 08:00:00 AM Scheduled Provider: [facility] Type:NM Myocard Spect Multi Rest/Stress-Res Appointment Date:04/17/2025 09:00:00 AM Scheduled Provider: [facility] Appointment Type:NM Myocard Spect Multi Rest/Stress - R Appointment Date:04/17/2025 09:30:00 AM Scheduled Provider: Location[facility] Appointment Type:NM Myocard Spect Multi Rest/Stress-Str Appointment Date:04/17/2025 10:30:00 AM Scheduled Provider: Location[facility] Appointment Type:NM Myocar Spect Multi Rest/Stress - St Appointment Date:05/02/2025 08:15:00 AM Scheduled Provider:Orlando Kate PA-C Location[facility] [place] Appointment Type:Pain Management - Follow Up (FT) Future Scheduled Tests Radiology* NM Myocardial Spect Rest/Stress 1 Day 04/17/25 [facility] evaluation note* Diagnosis Preop testing- Primary Preoperative examination, unspecified documented in this encounter [place] Phone: evaluation note* Diagnosis Post-op pain- Primary Other acute postoperative pain Status post gastric bypass for obesity Bariatric surgery status Morbid obesity with BMI of 40.0-44.9, adult (HCC) Hiatal hernia Diaphragmatic hernia without mention of obstruction or gangrene documented in this encounter [place] Phone: [email or web address] note* Diagnosis Dehydration documented in this encounter [place] Phone: [email or web address] note* Diagnosis Generalized abdominal pain- Primary Abdominal pain, generalized documented in this encounter [place] Phone: evaluation note* Diagnosis Surgery, elective- Primary Unspecified elective surgery for purposes other than remedying health states Omental infarction (HCC) Acute vascular insufficiency of intestine Intra-abdominal abscess (HCC) Peritoneal abscess documented in this encounter [place] Phone: evaluation note* Diagnosis Omental infarction (HCC) Acute vascular insufficiency of intestine documented in this encounter [place] Phone: [email or web address] note* Diagnosis Hypertrophy of breast- Primary Upper back pain Excess skin [facility] encounter [facility]* Diagnosis Burning tongue- Primary Glossodynia Irritation of oral cavity Other and unspecified diseases of the oral soft tissues documented [facility] this encounter [facility]* Diagnosis Onset Date Resolution Status Bipolar 1 disorder acuteBlurry visionacuteBorderline personality disorderacuteHeadacheacuteMDD (major depressive disorder)acutePalpitationacute [facility] Work Phone: Evaluation note* Diagnosis Idiopathic intracranial hypertension- Primary Benign intracranial hypertension Depression, unspecified depression type Primary hypertension Unspecified essential hypertension Hx of gastric bypass Bariatric surgery status H/O foot surgery Personal history of surgery to other organs documented in this encounter [facility] CenterEvaluation noteNo assessment information availableKet[facility] Work Phone: Evaluation noteNo InformationNort [employer] Other Evaluation note* Diagnosis Panic disorder- Primary Panic disorder without agoraphobia Borderline personality disorder (HCC) Borderline personality disorder Bipolar affective disorder in remission (HCC) Chronic alcoholism in remission (HCC) Other and unspecified alcohol dependence, in remission Routine health maintenance Routine general medical examination at a health care facility documented in this encounter [facility]* Diagnosis Panic disorder- Primary Panic disorder without agoraphobia documented in this encounter [facility]* Diagnosis Routine health maintenance- Primary [...] disorder, unspecified type documented in this encounter [facility] note* Diagnosis 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 documented in this encounter [facility] note* Diagnosis Idiopathic intracranial hypertension Benign intracranial hypertension documented in this encounter [facility] note* Diagnosis Chest pain, unspecified type- Primary Palpitations Bipolar affective disorder in remission (HCC) History of substance abuse (HCC) Other, mixed, or unspecified nondependent drug abuse, unspecified Borderline personality disorder (HCC) Borderline personality disorder Serum calcium elevated Hypercalcemia documented in this encounter [facility] note* Diagnosis Mass of upper outer quadrant of left breast documented in this encounter [facility] note* Diagnosis Abnormal mammogram- Primary Abnormal mammogram, unspecified Mass of upper outer quadrant of left breast Fibrocystic breast changes of both breasts Mastodynia Inversion of left nipple Bloody discharge from left nipple Other sign and symptom in breast Nipple discharge Other sign and symptom in breast Mass of upper outer quadrant of left breast documented in this encounter [facility] note* Diagnosis Abnormal mammogram of left breast documented in this encounter [facility] note* Diagnosis Bipolar affective disorder in remission (HCC)- Primary Borderline personality disorder (HCC) Borderline personality disorder Anxiety disorder, unspecified type Chest pain, unspecified type Iron deficiency anemia, unspecified iron deficiency anemia type documented in this encounter [facility] note* Diagnosis Angina pectoris Other and unspecified angina pectoris Shortness of breath Palpitations Family history of ischemic heart disease Primary hypertension Unspecified essential hypertension Current smoker BMI 29.0-29.9,adult documented in this encounter [facility] Work Phone: Evaluation note* Diagnosis Bipolar affective disorder in remission (HCC) Borderline personality disorder (HCC) Borderline personality disorder Anxiety disorder, unspecified type documented in this encounter [facility] note* Diagnosis Angina pectoris Other and unspecified angina pectoris Shortness of breath Palpitations Family history of ischemic heart disease Primary hypertension Unspecified essential hypertension documented in this encounter [facility] Work Phone: Evaluation note* Diagnosis Ataxia- Primary Lack of coordination Myalgia Unspecified myalgia and myositis [facility]* Diagnosis Myalgia Unspecified myalgia and myositis documented in this encounter [facility]* Diagnosis Bipolar affective disorder in remission (HCC) Borderline personality disorder (HCC) Borderline personality disorder Anxiety disorder, unspecified type documented [facility] this encounter [facility]* Diagnosis Acute pharyngitis, unspecified etiology- Primary Pharyngitis, unspecified etiology documented in this encounter [facility]* Diagnosis Pseudoangiomatous stromal hyperplasia of breast- Primary Hypertrophy of breast documented in this encounter [facility]* Diagnosis Pseudoangiomatous stromal hyperplasia of breast- Primary documented in this encounter [facility]* Diagnosis Hematoma- Primary Contusion of unspecified site Pseudoangiomatous stromal hyperplasia of breast documented in this encounter [facility]* Diagnosis Hematoma- Primary Contusion of unspecified site Pseudoangiomatous stromal hyperplasia of breast documented in this encounter [facility] note* Diagnosis IIH (idiopathic intracranial hypertension)- Primary Benign intracranial hypertension documented in this encounter [facility] HealthcareEvaluation note* Diagnosis Onset Date Resolution Status Admit Date Chronic headaches acuteOctober 2024 8:20amParesthesiaacuteOctober 2024 8:20am [facility] Work Phone: Histuqm general Narrative - Reported* Type Description Date Medical History plantar fasciitis Medical Historymigraine headacheMedical Historyborderline personality disorder Medical Historychronic depressionMedical HistorybipolarSurgical HistoryC section Surgical Historyc sectionSurgical Historytubal ligationSurgical History HYSTERECTOMYSurgical Historyoral surgerySurgical Historygastric bypass Hospitalization Historymental health issues [facility] Other Hisdpmj general Narrative - Reported* Type Description Date Medical History plantar fasciitis Medical Historymigraine headacheMedical Historyborderline personality disorder Medical Historychronic depressionMedical HistorybipolarSurgical HistoryC section Surgical Historyc sectionSurgical Historytubal ligationSurgical History HYSTERECTOMYSurgical Historyoral surgerySurgical Historygastric bypass Hospitalization Historymental health issuesH[facility] [place] [facility] [place] Other Hospital Discharge instructions No data available for this section [facility] Discharge instructions Additional Instructions Follow-up with your PCP and neurology Rest Push fluids Tylenol or Motrin if needed for pain Return here if any problems persist or worsenThe [facility] Work Phone: Hospital Discharge instructions Additional [...] directed for pain unless a prescription was provided.[facility] Work Phone: Hospital Discharge instructions Additional Instructions Continue current meds Follow-up with neurology if not improved Return if symptoms are worseThe [facility] Work Phone: Progress note No data available for this section [facility] (narrative)* Outpatient Procedure (Routine) - New RequestSpecialtyDiagnoses / ProceduresReferred By ContactReferred To ContactMER[facility] Diagnoses Chest pain, unspecified type Palpitations Procedures ECG COMPLETE ECG ROUTINE ECG W/LEAST 12 LDS W/I&[place] [address] [place] [address] [facility] [place] [address] [place] [address] Referral IDStatusReasonStart DateExpiration DateVisits RequestedVisits [id number] Request Auto-Generated Referral / [facility] for referral (narrative)* Diagnostic Procedure Only (Routine) - ClosedSpecialtyDiagnoses / ProceduresReferred By ContactReferred To ContactBR IMAGING Diagnoses Abnormal mammogram of left breast Procedures US BIOPSY BREAST LEFT BX BREAST W/DEVICE 1ST LESION ULTRASOUND GUID Abi Asif MD [address] [address] [facility] [address] [place] [phone] Referral IDStatusReasonStart DateExpiration DateVisits RequestedVisits [id number] Auto-Generated Referral / [facility] for referral (narrative)No reason for referral information availableK[facility] Work Phone: Reason for visit Narrative* Diagnostic Procedure Only (Routine) - ClosedSpecialtyDiagnoses / ProceduresReferred By ContactReferred To ContactBR IMAGING Diagnoses Abnormal mammogram of left breast Procedures US BIOPSY BREAST LEFT BX BREAST W/DEVICE 1ST LESION ULTRASOUND GUID Abi Asif MD [address] [address] [facility] [address] [place] [phone] Referral IDStatusReasonStart DateExpiration DateVisits RequestedVisits [id number] Auto-Generated Referral / [facility] for visit Narrative* Cardiovascular (Routine) - AuthorizedSpecialtyDiagnoses / ProceduresReferred By ContactReferred To ContactCardiology Diagnoses Angina pectoris Shortness of breath Procedures ECG 12 Lead Aleah Howard MD [address] [address] Phone: tel: fax: Referral IDStatusReasonStart DateExpiration DateVisits RequestedVisits [id number]/25/202411/25/202511 [facility] Work Phone: Reason for visit Narrative* CV Imaging (Routine) - AuthorizedSpecialtyDiagnoses / ProceduresReferred By ContactReferred To ContactCardiology Diagnoses Angina pectoris Shortness of breath Palpitations Family history of ischemic heart disease Primary hypertension Procedures Transthoracic Echo Complete UT ECHO TTHRC R-T 2D W/WOM-MODE COMPL SPEC&COLR D Aleah Howard MD [address] [place] [address] Phone: tel: fax: Referral IDStatusReasonStart DateExpiration DateVisits RequestedVisits [id number] Perform Procedure [facility] Work Phone: Assessments Diagnosis Preoperative testing Preoperative examination, unspecified Diagnosis Gastroesophageal reflux disease with esophagitis without hemorrhage Advance Directives No Advanced Directives Records FoundDocuments on File TypeDate RecordedPatient RepresentativeExplanationACP-Advance DirectiveACP-Power of AttorneyTypeDate RecordedPatient RepresentativeExplanationACP-Advance DirectiveACP-Power of AttorneyCode StatusDate ActivatedDate InactivatedComments Full Code01/07/2021 12:20 PMCode StatusDate ActivatedDate InactivatedCommentsFull Code01/07/2021 12:20 PM01/08/2021 8:31 PMCode StatusDate ActivatedDate Inactivated CommentsFull Code01/31/2021 11:30 PMFull Code01/07/2021 12:20 PM01/08/2021 8:31 PM Code StatusDate ActivatedDate InactivatedCommentsFull Code01/31/2021 11:30 PM 02/01/2021 12:23 PMFull Code01/07/2021 12:20 PM01/08/2021 8:31 PM Advance Directive Response Recorded Date/ Time Advance Directives No January 08, 019 6:21pm Advance Directive Response Recorded Date/ Time Advance Directives No January 08 019 7:21pm Code StatusDate ActivatedDate InactivatedCommentsFull Code01/31/2021 11:30 PM 02/01/2021 12:23 PMCode StatusDate ActivatedDate InactivatedCommentsFull Code 01/07/2021 12:20 PM01/08/2021 8:31 PM Summary Purpose Family History No Family History Records Found Relationship Condition Age at Onset Recorded Date/T ankti Not Specified Malignant neoplasm of pancreas Unknown fatherAmyotrophic lateral sclerosisUnknown Relationship Condition Age at Onset Recorded Date/T ankit Not Specified Malignant neoplasm of pancreas Unknown fatherAmyotrophic lateral sclerosisUnknowngrandparentMalignant neoplasm of pancreasUnknownfamily memberMalignant neoplasm of pancreasUnknown Relationship Condition Age at Onset Recorded Date/T ankit Not Specified Malignant neoplasm of pancreas Unknown fatherAmyotrophic lateral sclerosisUnknowngrandparentMalignant neoplasm of pancreasUnknownfamily memberMalignant neoplasm of pancreasUnknownfatherDeceased UnknownFamily history of mental disorderUnknownMalignant neoplasmUnknownfamily memberFamily history of other conditionUnknownNot SpecifiedDiabetes mellitus UnknownHypertensionUnknownDeceasedUnknownHeart diseaseUnknownHistory of stroke Unknown Relationship Condition Age at Onset Recorded Date/T ankit mother Malignant neoplasm of pancreas Unknown fatherAmyotrophic lateral sclerosisUnknowngrandparentMalignant neoplasm of pancreasUnknownfamily memberMalignant neoplasm of pancreasUnknownfatherDeceased UnknownFamily history of mental disorderUnknownMalignant neoplasmUnknownfamily memberFamily history of other conditionUnknownmotherDiabetes mellitusUnknown HypertensionUnknownDeceasedUnknownHeart diseaseUnknownHistory of strokeUnknown Relationship Condition Age at Onset Recorded Date/T ankit mother Malignant neoplasm of pancreas Unknown DeceasedUnknownDiabetes mellitusUnknownHeart diseaseUnknownHistory of stroke UnknownHypertensionUnknownMalignant neoplasmUnknownfatherAmyotrophic lateral sclerosisUnknownFamily history of mental disorderUnknowngrandparentMalignant neoplasm of pancreasUnknownfamily memberMalignant neoplasm of pancreasUnknown Discharge Instructions * Instructions* Yoli Hardy DO [...] questions, PLEASE call your doctor or the [facility] at documented in this encounter Reason for Referral StatusReasonSpecialtyDiagnoses / ProceduresReferred By ContactReferred To ContactClosedRadiology Diagnoses Omental infarction (HCC) Procedures CT ABDOMEN PELVIS W IV CONTRAST Additional Contrast? Oral Gamaliel Vickers, [address] [facility] [facility] [address] [place] [address] SpecialtyDiagnoses / ProceduresReferred By ContactReferred To Contact Ophthalmology Diagnoses Idiopathic intracranial hypertension Procedures CONSULT TO OPHTHALMOLOGY OFFICE/OUTPATIENT [facility] 60-74 MINUTES Eileen Alvarez MD [address] [place] [address] Referral IDStatusReasonStart DateExpiration DateVisits RequestedVisits [id number] PCP Requested Referral [id number] / ProceduresReferred By ContactReferred To ContactMR IMAGING Diagnoses Idiopathic intracranial hypertension Procedures MRV BRAIN WO/W IVCON MRA; HEAD W & WO Eileen Dang MD [address] [place] [address] [facility] Referral IDStatusReasonStart DateExpiration DateVisits RequestedVisits [id number] Review Auto-Generated Referral /[id number] / ProceduresReferred By ContactReferred To ContactMR IMAGING Diagnoses Mass of upper outer quadrant of left breast Procedures MRI BREAST BX WO/W IVCON LEFT BX BREAST W/DEVICE 1ST [place] [address] [place] [address] [facility] [place] [address] Referral IDStatusReasonStart DateExpiration DateVisits RequestedVisits [id number] Review Auto-Generated Referral /[id number] / ProceduresReferred By ContactReferred To Contact Diagnoses Class 1 obesity due to excess calories without serious comorbidity with body mass index (BMI) of 30.0 to 30.9 in adult Procedures ENDOCRINE MEDICAL WEIGHT MANAGEMENT OFFICE/OUTPATIENT [facility] 60 [place] [address] [place] [address] Referral IDStatusReasonStart DateExpiration DateVisits RequestedVisits [id number] PCP Requested Referral /[id number] / ProceduresReferred By ContactReferred To ContactMR IMAGING Diagnoses Pancreas cyst Procedures MRI 3D POST PROCESSING 3D RENDERING W/INTERP&POSTPROC DIFF WORK STATION Leonela Aguirre MD [address] [place] [address] [facility] [place] [address] Referral IDStatusReasonStart DateExpiration DateVisits RequestedVisits [id number] Auto-Generated Referral /[id number] / ProceduresReferred By ContactReferred To ContactMR IMAGING Diagnoses Pancreas cyst Procedures MRI PANC/TANMAY WO/W IVCON MRI ABDOMEN W/O & W/CONTRAST MATERIAL Leonela Aguirre MD [address] [place] [address] [facility] [place] [address] Referral IDStatusReasonStart DateExpiration DateVisits RequestedVisits [id number] Auto-Generated Referral /[id number] / ProceduresReferred By ContactReferred To ContactMR IMAGING Diagnoses Idiopathic intracranial hypertension Procedures MRV BRAIN WO/W IVCON MRA; HEAD W & WO CONTRAST Eileen Alvarez MD [address] [place] [address] [facility] [place] [address] Referral IDStatusReasonStart DateExpiration DateVisits RequestedVisits [id number] Auto-Generated Referral /[id number] / ProceduresReferred By ContactReferred To ContactMR IMAGING Diagnoses Mass of upper outer quadrant of left breast Fibrocystic breast changes of both breasts Mastodynia Inversion of left nipple Bloody discharge from left nipple Nipple discharge Procedures MRI BREAST WO/W IVCON BILATERAL MRI BREAST WITHOUT&WITH CONTRAST W/CAD BILATERAL Fatuma Tyler APRN.HEAD TURNING MACHINE OPERATOR [address] [place] [address] [facility] [place] [address] Referral IDStatusReasonRobert Lee DateExpiration DateVisits RequestedVisits [id number] Review Auto-Generated Referral /[id number] / ProceduresReferred By ContactReferred To ContactBR IMAGING Diagnoses Mass of upper outer quadrant of left breast Procedures US BREAST LTD LEFT US BREAST UNI REAL TIME WITH IMAGE LIMITED Fatuma Tyler APRN.HEAD TURNING MACHINE OPERATOR [address] [place] [address] [facility] [address] [place] [address] Referral IDStatusReasonStart DateExpiration DateVisits RequestedVisits [id number] Auto-Generated Referral [id number] / ProceduresReferred By ContactReferred To ContactBR IMAGING Diagnoses Mass of upper outer quadrant of left breast Procedures LINDA DIAG W AV BILATERAL DIGITAL BREAST TOMOSYNTHESIS BILATERAL Fatuma Tyler, AIRBORNE SENSOR SPECIALIST.HEAD TURNING MACHINE OPERATOR [address] [place] [address] [facility] [address] [place] [address] Referral IDStatusReasonStwest nyack DateExpiration DateVisits RequestedVisits [id number] Auto-Generated Referral Chief Complaint and Reason for Visit Chief Complaint Headache, R/O intrac ranial hypertension Reason for Visit Bipolar 1 disorder Blurry vision Borderline personality disorder Headache MDD (major depressive disorder) Palpitation Chief Complaint Headache, R/O intrac ranial hypertension Headache, R/O intracranial hypertensionReason for VisitBipolar 1 disorder Blurry vision Borderline personality disorder [...] Date April 20, 2025 10: 00am N64.89 April 26, 2025 7: 45am Chief Complaint Admit Date N64.89 N6April 26, 2025 7: 45am BH May 11, 2025 10 :00am PASH May 16, 2025 8:54am Chief Complaint Admit Date N64.89 N62 April 26, 2025 7: 45am BH May 11, 2025 10 :00am PASH May 16, 2025 8:54am Left Breast Pseudoangiomatous Stromal Hy drocladia May 30, 2025 7:04am Chief Complaint Admit Date N64.89 N62 April 26, 2025 7: 45am PASH May 16, 2025 8:54am Left Breast Pseudoangiomatous Stromal Hy drocladia May 30, 2025 7:04am BH June 06, 2025 9:55am cp,dizziness,headache June 29, 2025 11:34am Chief Complaint Admit Date N64.89 N62 April 26, 2025 7: 45am PASH May 16, 2025 8:54am Left Breast Pseudoangiomatous Stromal Hy drocladia May 30, 2025 7:04am BH June 06, 2025 9:55am cp,dizziness,headache June 29, 2025 11:34am Dizziness July 12, 2025 8 :20am Reason for Visit Admit Date Chronic headaches July 12, 2025 8 :20am Paresthesia July 12, 2025 8 :20am Additional Source Comments INFORMATION SOURCE (unrecogn ized section and content) DATE CREATED AUTHOR 10/06/2020 [employer] DATE CREATED AUTHOR AUTHOR'S ORGANIZ ATION 01/06/2021 [facility] DATE CREATED AUTHOR AUTHOR'S ORGANIZ ATION 08/16/2022 [facility] DATE CREATED AUTHOR AUTHOR'S ORGANIZ ATION 11/15/2022 [facility] DATE CREATED AUTHOR AUTHOR'S ORGANIZ ATION 08/17/2023 [facility] DATE CREATED AUTHOR AUTHOR'S ORGANIZ ATION 09/04/2023 [facility] DATE CREATED AUTHOR AUTHOR'S ORGANIZ ATION 10/26/2023 [facility] DATE CREATED AUTHOR AUTHOR'S ORGANIZ ATION 03/12/[address] [facility] DATE CREATED AUTHOR AUTHOR'S ORGANIZ ATION 09/16/2024 [facility] DATE CREATED AUTHOR AUTHOR'S ORGANIZ ATION 09/25/[address] [facility] DATE CREATED AUTHOR AUTHOR'S ORGANIZ ATION 09/26/[address] [facility] DATE CREATED AUTHOR AUTHOR'S ORGANIZ ATION 09/30/[address] [facility] DATE CREATED AUTHOR AUTHOR'S ORGANIZ ATION 10/19/2024 [facility] DATE CREATED AUTHOR AUTHOR'S ORGANIZ ATION 12/13/2024 [facility] DATE CREATED AUTHOR AUTHOR'S ORGANIZ ATION 01/29/2025 [facility] DATE CREATED AUTHOR AUTHOR'S ORGANIZ ATION 02/19/[address] [facility] DATE CREATED AUTHOR AUTHOR'S ORGANIZ ATION 03/05/[address] [facility] DATE CREATED AUTHOR AUTHOR'S ORGANIZ ATION 03/17/[address] [facility] DATE CREATED AUTHOR AUTHOR'S ORGANIZ ATION 07/04/2025 [facility] DATE CREATED AUTHOR AUTHOR'S ORGANIZ ATION 07/07/2025 [facility] DATE CREATED AUTHOR AUTHOR'S ORGANIZ ATION 07/23/[address] [facility] Reason for Visit (unrecogniz ed section and content) StatusReasonSpecialtyDiagnoses / ProceduresReferred By ContactReferred To Contact Diagnoses GERD (gastroesophageal reflux disease) GERD/OBESITY Procedures UT ESOPHAGOGASTRODUODENOSCOPY TRANSORAL DIAGNOSTIC EGD ESOPHAGOGASTRODUODENOSCOPY Gamaliel Vickers DO [address] [facility] [address] [place] [phone] [facility] StatusReasonSpecialtyDiagnoses / ProceduresReferred By ContactReferred To ContactClosedRadiology Diagnoses Gastro-esophageal reflux disease with esophagitis, without bleeding Procedures CHG RADIOLOGIC EXAM UPR GI TRC SINGLE CONTRAST STUDY Gamaliel Vickers DO [address] [facility] [address] [place] [phone] [facility] Radiology [address] [place] [address] StatusReasonSpecialtyDiagnoses / ProceduresReferred By ContactReferred To Contact Diagnoses Morbid obesity (HCC) GERD (gastroesophageal reflux disease) MORBID OBESITY, GERD Procedures UT LAP GASTRIC BYPASS/TIAN-EN-Y XI LAPAROSCOPIC ROBOTIC GASTRIC BYPASS TIAN-EN-Y, LIVER BIOPSY, EGD- GI UNIT SCHEDULED. Gamaliel Vickers DO [address] [facility] [address] [place] [phone] [employer] ReasonCommentsAbdominal PainDiffuse cramping and bloating. Onset 2 days ago. Pt reports she is 3.5weeks post Gastric bypass. Last BM this AMReasonComments Abdominal Painpossible abscessStatusReasonSpecialtyDiagnoses / Procedures Referred By ContactReferred To Contact Diagnoses Intra-abdominal abscess (HCC) Omental infarction (HCC) Gamaliel Vickers DO [address] [facility] [address] [place] [phone] [facility] [employer] StatusReasonSpecialtyDiagnoses / ProceduresReferred By ContactReferred To ContactClosedRadiology Diagnoses Omental infarction (HCC) Procedures CT ABDOMEN PELVIS W IV CONTRAST Additional Contrast? Oral Gamaliel Vickers DO [address] [facility] [address] [place] [phone] ReasonCommentsOrdersReasonCommentsPatient QuestionAppointmentReasonCommentsMouth Soresblood in the back of throatReasonCommentsSchedulingReasonComments AppointmentReasonCommentsHeadacheReasonCommentsRefill RequestSpecialtyDiagnoses / ProceduresReferred By ContactReferred To Contact Diagnoses Gastroesophageal reflux disease, unspecified whether esophagitis present Obesity (BMI 30-39.9) Gastroesophageal reflux disease, unspecified whether esophagitis present [K21.9] Obesity (BMI 30-39.9) [E66.9] Procedures UT EGD TRANSORAL BIOPSY SINGLE/MULTIPLE UT ESOPHAGOGASTRODUODENOSCOPY TRANSORAL DIAGNOSTIC UT EGD BALLOON DILATION ESOPHAGUS <30 MM DIAM EGD BIOPSY Gamaliel Vickers DO [address] [facility] [address] [place] [address] [facility] [address] [place] [address] Referral IDStatusReasonStart DateExpiration DateVisits RequestedVisits [id number] CarePanic attacks , SOB ( Chest tightness )ReasonCommentsPhysicalGastric by pass surgery 3 yrs ago and wants to talk about how to help with weight loss.Rash on right upper thigh.ReasonComments Radiology MRISpecialtyDiagnoses / ProceduresReferred By ContactReferred To ContactMR IMAGING Diagnoses Pancreas cyst Procedures MRI PANC/TANMAY WO/W IVCON MRI ABDOMEN W/O & W/CONTRAST MATERIAL Leonela Aguirre MD [address] [place] [address] Mr [facility] [place] [address] Referral IDStatusReJack [facility] DateExpiration DateVisits RequestedVisits [id number] Auto-Generated Referral /[id number] DateCommentsACM EDYTA 05/30/2024ED Utilization review per request of payerSpecialtyDiagnoses / ProceduresReferred By ContactReferred To Contact IMAGING Diagnoses Idiopathic intracranial hypertension Procedures MRV BRAIN WO/W IVCON MRA; HEAD W & WO CONTRAST Eileen Alvarez MD [address] [place] [address] [facility] [place] [address] Referral IDStatusReasonStart DateExpiration DateVisits RequestedVisits [id number] Auto-Generated Referral /[id number] CareAnxiety is getting bad On/off chest pain ,Rapid HR, trouble in sleeping, body aches, BP elevated , light headed dizzy, blurry vision, trouble eating or drinking can't stop eatingReason CommentsRadiology MammogramSpecialtyDiagnoses / ProceduresReferred By Contact Referred To ContactBR IMAGING Diagnoses Mass of upper outer quadrant of left breast Procedures LINDA DIAG W AV BILATERAL DIGITAL BREAST TOMOSYNTHESIS BILATERAL Fatuma Tyler APRN.HEAD TURNING MACHINE OPERATOR [address] [place] [address] [facility] [address] [place] [address] Referral IDStatusReasonStart DateExpiration DateVisits RequestedVisits [id number] Auto-Generated Referral [id number] PatientLeft breast lump and pain for over a year; pt feels that the lump has increased in size over the years; she did experience blood nipple discharge and is not sure how long this has been going on; lumpis close to axilla; pain at the site of the lump with no redness or signs of infection; left nipplewill invert and she is able to pull it back out; she also c/o dark spots under her breastReasonCommentsResultsAppointment ReasonCommentsAnxietyDepressionReasonCommentsER F/UFeels sameReasonCommentsMed Change RequestReasonOnset DateCommentsACM EDYTA RN08/25/2024ED Utilization Review per request of payorReasonOnset DateCommentsPopulation Health Navigation Pejbigqm88/03/2025[place] WorkbencNovant Health Pender Medical CenterainReasonCommentsLeft breast hypertrophy SpecialtyDiagnoses / ProceduresReferred By ContactReferred To ContactGeneral Surgery Diagnoses Hypertrophy of breast Procedures UT OFFICE/OUTPATIENT NEW HIGH MDM 60 MINUTES Molly Gregorio, CEDRIC-HEAD TURNING MACHINE OPERATOR [address] [place] [address] Phone: tel: fax: [facility] [address] [address] Phone: tel: fax: Referral IDStatusReasonStart DateExpiration DateVisits RequestedVisits [id number] Specialty Services Required /[id number] mamm/US resultsC/o nipple painReason Ugaxunrx9xk pow Lt. lumpectomyPoss. uxwidcNlptwkFdalezgr6yh pow Lt. lumpectomyPt has a new area that feels hard. She also feels dizzy and having problems remembering things the last few weeks. This has been on and off. Ordered Prescriptions (unrec ognized section and content) PrescriptionSigDispensedRefillsStart DateEnd Date pantoprazole (PROTONIX) 40 MG tablet Take 1 tablet by mouth daily 180 tablet / promethazine (PHENERGAN) 25 MG tablet Take 1 tablet by mouth every 6 hours as needed for Nausea 80 tablet / oxyCODONE-acetaminophen (PERCOCET) 5-325 MG per tablet Indications:Post-op painTake 1 tablet by mouth every 6 hours as needed for Pain for up to 7 days. Intended supply: 7 days. Take lowest dose possible to manage pain 28 tablet /rescriptionSigDispensedRefillsStart DateEnd oxyCODONE-acetaminophen (PERCOCET) 5-325 MG per tablet Indications:Omental infarction (HCC),Surgery, electiveTake 1 tablet by mouth every 6 hours as needed for Pain for up to 5 days. Intended supply: 7 days. Take lowest dose possible to manage pain 20 tablet / amoxicillin-clavulanate (AUGMENTIN) 875-125 MG per tablet Take 1 tablet by mouth 2 times daily for 10 days 20 tablet // Scheduled Active and Recently Administ ered Medications (unrecognized section and content) Medication Order/// 0.9 % sodium chloride bolus (COMPLETED) 1,000 mL (8.71 mL/kg), Intravenous, at 1,000 mL/hr, Administer over 1 Hours, ONCE, On 01/26/21 at 0915, For 1 dose * 1028 (New Bag - Provider: Jasmine Burch, RN) * 1129 (Stopped - Provider: Jasmine Burch, RN) 0.9 % sodium chloride bolus (COMPLETED) 1,000 mL (8.71 mL/kg), Intravenous, at 250 mL/hr, Administer over 4 Hours, ONCE, On 01/26/21 at 0915, For 1 dose * 1131 (New Bag - Provider: Jasmine Burch RN) * 1345 (Stopped - Provider: Jasmine Burch RN) Medication Order/ morphine (PF) injection 2 mg (COMPLETED) 2 mg, Intravenous, ONCE, On Thu01/30/21 at 1015, For 1 dose, If oral and IV narcotics ordered, use oral first and only use IV if oral is ineffective or cannot take oral. Do Not give oral and IV within 1 hour of each other unless specifically ordered. * 1045 (Given - Provider: Judy Reeder, MARCO) morphine (PF) injection 2 mg (COMPLETED) 2 mg, Intravenous, ONCE, On Thu01/30/21 at 1245, For 1 dose, If oral and IV narcotics ordered, use oral first and only use IV if oral is ineffective or cannot take oral. Do Not give oral and IV within 1 hour of each other unless specifically ordered. * 1307 (Given - Provider: Yanelis Martínez RN) morphine (PF) injection 2 mg (COMPLETED) 2 mg, Intravenous, ONCE, On Thu01/30/21 at 1315, For 1 dose, If oral and IV narcotics ordered, use oral first and only use IV if oral is ineffective or cannot take oral. Do Not give oral and IV within 1 hour of each other unless specifically ordered. * 1312 (Held - Provider: Yanleis Martínez RN - Reason: Other - Comment: pt declines pain meds at this time) * 1436 (Given - Provider: Yanelis Martínez RN) ondansetron (ZOFRAN) injection 4 mg (COMPLETED) 4 mg, Intravenous, ONCE, On Thu01/30/21 at 1015, For 1 dose * 1044 (Given - Provider: Judy Reeder RN) piperacillin-tazobactam (ZOSYN) 3,375 mg in dextrose 5 % 50 mL IVPB (mini-bag) (COMPLETED) 3,375 mg, Intravenous, ONCE, 1 dose, On Thu01/30/21 at 1415 * 1426 (New Bag - Provider: Yanelis Martínez RN) * 1500 (Stopped - Provider: Yanelis Martínez RN) Medication Order/ 0.9 % sodium chloride infusion 1,000 mL, Intravenous, at 125 mL/hr, Administer over 8 Hours, CONTINUOUS, Starting on Thu01/30/21 at 1015 * 1043 (New Bag - Provider: Judy Reeder, MARCO) * 1515 (Patient Transferred to Other Facility - Provider: Judy Reeder, RN) Medication Order01/28/// iopamidol (ISOVUE-370) 76 % injection 18 mL (COMPLETED) 18 mL, Other, IMG ONCE PRN, Other, Starting on Thu01/30/21 at 1137, For 1 dose * 1142 (Given - Provider: [facility]) iopamidol (ISOVUE-370) 76 % injection 75 mL (COMPLETED) 75 mL, Intravenous, IMG ONCE PRN, Other, Starting on Thu01/30/21 at 1137, For 1 dose * 1142 (Given - Provider: [facility]) Medication Order// 0.9 % sodium chloride bolus (COMPLETED) 1,000 mL (8.96 mL/kg), Intravenous, at 1,000 mL/hr, Administer over 1 Hours, ONCE, On Thu01/30/21 at 1715, For 1 dose * 1708 (New Bag - Provider: Orlando Guevara, MARCO) * 1901 (Stopped - Provider: Orlando Guevara, RN) enoxaparin (LOVENOX) injection 40 mg 40 mg, Subcutaneous, EVERY 12 HOURS SCHEDULED (2 times per day), First dose on Thu01/30/21 at 2200 * 2315 (Held - Provider: Heather Palacios, RN - Reason: Patient/family refused) * 0938 (Given - Provider: Wei Carter, MARCO) * 2100 (Due) * 0831 (Given - Provider: Bonnie Ruiz, MARCO) * 2100 (Due) fentaNYL (SUBLIMAZE) injection 50 mcg (COMPLETED) 50 mcg, Intravenous, ONCE, On Thu01/30/21 at 1715, For 1 dose, If oral and IV narcotics ordered, use oral first and only use IV if oral is ineffective or cannot take oral. Do Not give oral and IV within 1 hour of each other unless specifically ordered. * 1707 (Given - Provider: Orlando Guevara, MARCO) fentaNYL (SUBLIMAZE) injection 50 mcg (COMPLETED) 50 mcg, Intravenous, ONCE, On Thu01/30/21 at 2000, For 1 dose, If oral and IV narcotics ordered, use oral first and only use IV if oral is ineffective or cannot take oral. Do Not give oral and IV within 1 hour of each other unless specifically ordered. * 2004 (Given - Provider: Jacob Mane RN) piperacillin-tazobactam (ZOSYN) 3,375 mg in dextrose 5 % 50 mL IVPB (mini-bag) 3,375 mg, Intravenous, EVERY 8 HOURS, First dose (after last reorder) on Thu01/30/21 at 2115, UntilDiscontinued * 2246 (New Bag - Provider: Jacob Mane RN) * 0336 (Stopped - Provider: Heather Palacios, MARCO) * 0635 (New Bag - Provider: Heather Palacios, MARCO) * 0940 (Stopped - Provider: Wei Carter, MARCO) * 1257 (New Bag - Provider: Wei Carter RN) * 1632 (Stopped - Provider: Wei Carter, MARCO) * 2032 (New Bag - Provider: Rita Klein, MARCO) * 0030 (Stopped - Provider: Rita Klein, MARCO) * 0559 (New Bag - Provider: Rita Klein, MARCO) * 0959 (Due: Stopped - Provider: Rita Klein RN) * 1315 (Due) * 2115 (Due) sodium chloride flush 0.9 % injection [...] Midline or Central Line = 20 mL/lumen * 0906 (Not Given - Provider: Bonnie Ruiz MARCO - Reason: IV Fluid Infusing) * 2100 (Due) Medication Order01/30//// 0.9 % sodium chloride infusion 25 mL, Intravenous, at 100 mL/hr, PRN, If patient receiving piggyback infusions without ordered maintenance IV fluids or with frequent/long duration piggyback infusions, Starting on Thu01/30/21 at 2157, Administer at the same rate as the piggyback being infused. cyclobenzaprine (FLEXERIL) tablet 10 mg 10 mg, Oral, 3 TIMES DAILY PRN, Muscle spasms, Starting on Thu01/30/21 at 2157 * 0939 (Given - Provider: Wei Carter, MARCO) * 1424 (Given - Provider: Wei Carter RN) * 1921 (Given - Provider: Rita Klein RN) * 0404 (Given - Provider: Rita Klein RN) oxyCODONE-acetaminophen (PERCOCET) 5-325 MG per tablet 1 tablet 1 tablet, Oral, EVERY 4 HOURS PRN, Pain Severe (7-10), Starting on Thu01/30/21 at 2157, Maximum dose of acetaminophen is 4000 mg from all sources in 24 hours. * 2251 (Given - Provider: Jacob Mane RN) * 0451 (Given - Provider: Heather Palacios RN) * 0939 (Given - Provider: Wei Carter RN) * 1424 (Given - Provider: Wei Carter, MARCO) * 192 (Given - Provider: Rita Klein RN) * 0404 (Given - Provider: Rita Klein RN) * 0832 (Given - Provider: Bonnie Ruiz, MARCO) promethazine [...] use, Starting on Bettye 01/31/21 at 2330, ForLine Patency: Peripheral IV = 5 mL; Midline or Central Line = 10 mL/lumen. If following IV push medication, administer flush at same rate as the IV push. Flush volume is determined by type of infusion therapy being given. For non-viscous solutions use: Peripheral IV = 5 mL Midline or Central Line =10 mL/lumen For viscous solutions (i.e. blood components, parenteral nutrition, contrast media, or after obtaining blood sample) use: Peripheral IV = 10 mL Midline or Central Line = 20 mL/lumen Medication Order09/16///01/2024 meperidine (DEMEROL) injection 12.5 mg 12.5 mg, IntraVENous, ONCE, 1 dose, On Thu09/18/23 at 0845, May give every 5 minutes to max of 50mg., PACU only * 0845 (Due) sodium chloride flush 0.9 % injection 5-40 mL 5-40 mL, IntraVENous, EVERY 12 HOURS SCHEDULED (2 times per day), First dose on Thu09/18/23 at 0900,Until Discontinued, For Line Patency: Peripheral IV = [...] = 20 mL/lumen, Pre-op (day of surgery) * 0900 (Due) * 2100 (Due) sodium chloride flush 0.9 % injection 5-40 mL 5-40 mL, IntraVENous, EVERY 12 HOURS SCHEDULED (2 times per day), First dose on Thu09/18/23 at 0900,Until Discontinued, For Line Patency: Peripheral IV = [...] Central Line = 20 mL/lumen, PACU only * 0900 (Due) * 2100 (Due) Medication Order//01/2024 lactated ringers IV soln infusion IntraVENous, at 125 mL/hr, CONTINUOUS, Starting on Thu09/18/23 at 0745, Pre-op (day of surgery) * 0736 (New Bag - Provider: CEDRIC Hood CRNA) * 0814 (NoRateChange - Provider: CEDRIC Hood CRNA) * 0823 (Anesthesia Volume Adjustment - Provider: CEDRIC Hood CRNA) Medication Order//01/2024 0.9 % sodium chloride infusion IntraVENous, at 5-250 mL/hr, PRN, if patient receiving piggyback infusions and maintenance fluids are not ordered OR KVO fluids to protect IV site / prevent frequent line interruptions/ long duration, Starting on Thu09/18/23 at 0719, For piggyback infusion, administer at same rate as piggyback for atotal of 25 mL. Enter 25 mL into [...] greater than 180 mmHg 10 minutes after secondantihypertensive dose is administered., PACU only HYDROmorphone (DILAUDID) [...] as the IV push. Flush volume is determinedby type of infusion therapy being given. For [...] as the IV push. Flush volume is determinedby type of infusion therapy being given. For non-viscous solutions use: Peripheral IV = 5 mL Midline or Central Line = 10 mL/lumen For viscous solutions (i.e. blood components, parenteral nutrition, contrast media, or after obtaining blood sample) use: Peripheral IV = 10 mL Midline or Central Line = 20 mL/lumen, PACU only Order Group 1: labetalol (NORMODYNE;TRANDATE) injection 10 [...] prosecute any alcohol or drug abuse patient.[facility] CenterIn the event this information is protected by the Federal Confidentiality of Alcohol and Drug Abuse Patient Records regulations: The Federal rules restrict any use of the information to criminally investigate or prosecute any alcohol or drug abuse patient.[facility] CenterIn the event this information is protected by the Federal Confidentiality of Alcohol and Drug Abuse Patient Records regulations: The Federal rules restrict any use of the information to criminally investigate or prosecute any alcohol or drug abuse patient.[facility] CenterIn the event this information is protected by the Federal Confidentiality of Alcohol and Drug Abuse Patient Records regulations: The Federal rules restrict any use of the information to criminally investigate or prosecute any alcohol or drug abuse patient.[facility] CenterIn the event this information is protected by the Federal Confidentiality of Alcohol and Drug Abuse Patient Records regulations: The Federal rules restrict any use of the information to criminally investigate or prosecute any alcohol or drug abuse patient.[facility] CenterIn the event this information is protected by the Federal Confidentiality of Alcohol and Drug Abuse Patient Records regulations: The Federal rules restrict any use of the information to criminally investigate or prosecute any alcohol or drug abuse patient.[facility] CenterIn the event this information is protected by the Federal Confidentiality of Alcohol and Drug Abuse Patient Records regulations: The Federal rules restrict any use of the information to criminally investigate or prosecute any alcohol or drug abuse patient.[facility] CenterIn the event this information is protected by the Federal Confidentiality of Alcohol and Drug Abuse Patient Records regulations: The Federal rules restrict any use of the information to criminally investigate or prosecute any alcohol or drug abuse patient.[facility] CenterIn the event this information is protected by the Federal Confidentiality of Alcohol and Drug Abuse Patient Records regulations: The Federal rules restrict any use of the information to criminally investigate or prosecute any alcohol or drug abuse patient.[facility] CenterIn the event this information is protected by the Federal Confidentiality of Alcohol and Drug Abuse Patient Records regulations: The Federal rules restrict any use of the information to criminally investigate or prosecute any alcohol or drug abuse patient.[facility] CenterIn the event this information is protected by the Federal Confidentiality of Alcohol and Drug Abuse Patient Records regulations: The Federal rules restrict any use of the information to criminally investigate or prosecute any alcohol or drug abuse patient.[facility] CenterIn the event this information is protected by the Federal Confidentiality of Alcohol and Drug Abuse Patient Records regulations: The Federal rules restrict any use of the information to criminally investigate or prosecute any alcohol or drug abuse patient.[facility] CenterIn the event this information is protected by the Federal Confidentiality of Alcohol and Drug Abuse Patient Records regulations: The Federal rules restrict any use of the information to criminally investigate or prosecute any alcohol or drug abuse patient.[facility] CenterIn the event this information is protected by the Federal Confidentiality of Alcohol and Drug Abuse Patient Records regulations: The Federal rules restrict any use of the information to criminally investigate or prosecute any alcohol or drug abuse patient.[facility] CenterIn the event this information is protected by the Federal Confidentiality of Alcohol and Drug Abuse Patient Records regulations: The Federal rules restrict any use of the information to criminally investigate or prosecute any alcohol or drug abuse patient.[facility] CenterIn the event this information is protected by the Federal Confidentiality of Alcohol and Drug Abuse Patient Records regulations: The Federal rules restrict any use of the information to criminally investigate or prosecute any alcohol or drug abuse patient.[facility] CenterIn the event this information is protected by the Federal Confidentiality of Alcohol and Drug Abuse Patient Records regulations: The Federal rules restrict any use of the information to criminally investigate or prosecute any alcohol or drug abuse patient.[facility] CenterIn the event this information is protected by the Federal Confidentiality of Alcohol and Drug Abuse Patient Records regulations: The Federal rules restrict any use of the information to criminally investigate or prosecute any alcohol or drug abuse patient.[facility] CenterIn the event this information is protected by the Federal Confidentiality of Alcohol and Drug Abuse Patient Records regulations: The Federal rules restrict any use of the information to criminally investigate or prosecute any alcohol or drug abuse patient.[facility] CenterIn the event this information is protected by the Federal Confidentiality of Alcohol and Drug Abuse Patient Records regulations: The Federal rules restrict any use of the information to criminally investigate or prosecute any alcohol or drug abuse patient.[facility] CenterIn the event this information is protected by the Federal Confidentiality of Alcohol and Drug Abuse Patient Records regulations: The Federal rules restrict any use of the information to criminally investigate or prosecute any alcohol or drug abuse patient.[facility] the event this information is protected by the Federal Confidentiality of Alcohol and Drug Abuse Patient Records regulations: The Federal rules restrict any use of the information to criminally investigate or prosecute any alcohol or drug abuse patient.[facility] CenterIn the event this information is protected by the Federal Confidentiality of Alcohol and Drug Abuse Patient Records regulations: The Federal rules restrict any use of the information to criminally investigate or prosecute any alcohol or drug abuse patient.[facility] CenterIn the event this information is protected by the Federal Confidentiality of Alcohol and Drug Abuse Patient Records regulations: The Federal rules restrict any use of the information to criminally investigate or prosecute any alcohol or drug abuse patient.[facility] CenterIn the event this information is protected by the Federal Confidentiality of Alcohol and Drug Abuse Patient Records regulations: The Federal rules restrict any use of the information to criminally investigate or prosecute any alcohol or drug abuse patient.[facility] CenterIn the event this information is protected by the Federal Confidentiality of Alcohol and Drug Abuse Patient Records regulations: The Federal rules restrict any use of the information to criminally investigate or prosecute any alcohol or drug abuse patient.[facility] CenterIn the event this information is protected by the Federal Confidentiality of Alcohol and Drug Abuse Patient Records regulations: The Federal rules restrict any use of the information to criminally investigate or prosecute any alcohol or drug abuse patient.[facility] CenterIn the event this information is protected by the Federal Confidentiality of Alcohol and Drug Abuse Patient Records regulations: The Federal rules restrict any use of the information to criminally investigate or prosecute any alcohol or drug abuse patient.[facility] CenterIn the event this information is protected by the Federal Confidentiality of Alcohol and Drug Abuse Patient Records regulations: The Federal rules restrict any use of the information to criminally investigate or prosecute any alcohol or drug abuse patient.[facility] CenterIn the event this information is protected by the Federal Confidentiality of Alcohol and Drug Abuse Patient Records regulations: The Federal rules restrict any use of the information to criminally investigate or prosecute any alcohol or drug abuse patient.[facility] Care Team (unrecognized sect ion and content) Team Status: Active Member Role Status Dates Jennie Durand DO Primary Care Provider Active Team Status: Inactive Member Role Status Dates Aaliyah Francis DO Attending Provider Active Start: April 26, 2025 End: April 26Antony Chavis Care ProviderActiveStart: April 26, 2025 End: April 26, 2025 Team Status: Active Member Role Status Dates Lindy Keen APRN [employer] DIRECT[employer]-C Primary Care Provider Activ e Start: May 11, 2025 Efrem Victor , MDAttending ProviderActiveStart: May 11, 2025 Team Status: Inactive Member Role Status Dates Jennie Durand DO Primary Care Provider Active S tart: May 16, 2025 End: May 16, 2025Aaliyah Francis DOAttconstantin ProviderActiveStart: May 16, 2025 End: May 16, 2025 Team Status: Active Member Role Status Dates Lindy Keen APRN [employer] DIRECT[employer]-C Primary Care Provider Activ e Start: April 20, 2025 Efrem Victor , MDAttending ProviderActiveStart: April 20, 2025 Team Status: Active Member Role Status Dates NON STAFF Primary Care Provider Active Team Status: Inactive Member Role Status Dates NON STAFF Primary Care Provider Active Start: September 15, 2024 End: September 15Nick Mata ProviderActiveStart: September 15, 2024 End: September 15, 2024 Team Status: Inactive Member Role Status Dates NON STAFF Primary Care Provider Active Start: December 12, 2024 End: December 12, 2024Jacob Baker , MDAttending ProviderActiveStart: December 12, 2024 End: December 12, 2024 Team Status: Inactive Member Role Status Dates Jennie Durand , Primary Care Provider Active Sangeetha Peña , MDAdmit ProviderActiveKatherine SciarappaOther ProviderActive Krystal Romo , DOOther ProviderActiveStrod Schilling MDOther ProviderActive Jamie Larsen , DOOther ProviderActiveFebrown Niño , ANP-BCOther ProviderActiveAdam Su Lee , DOOther ProviderActiveShasta Zaragoza , APRNOther ProviderActiveDanielle Smith , [employer] DIRECTOR-COther ProviderActiveLizzeth Malave MD Attending ProviderActive Team Status: Inactive Member Role Status Dates Jennie Durand , Primary Care Provider Active Sangeetha Peña , MDAdmit ProviderActiveKatherine SciarappaOther ProviderActive Krystal Romo , DOOther ProviderActiveStrod Schilling , MDOther ProviderActive Jamie Larsen , DOReferring Provider, Other ProviderActiveFelicia Salinas , ANP-BCOther ProviderActiveAdam Su Lee , DOOther ProviderActive Shasta Zaragoza , APRNOther ProviderActiveDanielle Smith , [employer] DIRECTOR-COther Provider ActiveNatalee Hull ProviderActive Team Status: Inactive Member Role Status Dates Jennie Durand , Primary Care Provider Active Te Bro ProviderActive Team Status: Inactive Member Role Status Dates Jennie Durand , Primary Care Provider Active Christine Noriega ProviderActive Team Status: Inactive Member Role Status Dates Jennie Durand , DO Primary Care Provider Active Christin Aguillon ProviderActiveTeam MemberRelationshipSpecialtyStart DateEnd Date Jennie Durand DO [address] [place] [id number] [facility]22 Team Status: Inactive Member Role Status Dates Jennie Durand DO Primary Care Provider Active S tart: December 10, 2023 End: December 09Christin Pantoja ProviderActiveStart: December 10, 2023 End: December 10, 2023 Team Status: Inactive Member Role Status Dates Jennie Durand DO Primary Care Provider Active S tart: December 24, 2023 End: December 23Christine John ProviderActiveStart: December 24, 2023 End: December 24, 2023 Team Status: Inactive Member Role Status Dates Jennie Durand DO Primary Care Provider Active S tart: December 31, 2023 End: December 31, 2023Nick Berger ProviderActiveStart: December 31, 2023 End: December 31, 2023Team MemberRelationshipSpecialtyStart [place] [address] [place] [address] PCP - [facility] Medicine01/04/24 Nilo Prado MD [address] [place] [address] QgbkewovqCfmufxmcrhsmgrul57/4/23Team MemberRelationshipSpecialtyStart [place] [address] [place] [address] [facility] - [facility]/04/24 Nilo Prado MD [address] [address] HirweuariEtqgyheiazwctbmh0623Team MemberRelationshipSpecialtyStart [place] [address] [place] [address] PCP - GeneralFamily Medicine01/04/24 Nilo Prado MD [address] [place] [address] YoxhastwfXqlsjcggqtbhtuzt02/4/23Team MemberRelationshipSpecialtyStart [place] [address] [place] [address] PCP - GeneralFamily Medicine01/04/24 Nilo Prado MD [address] [place] [address] RrwuuefhyEuigmrudbuzeqhpi63/4/23Team MemberRelationshipSpecialtyStart [place] [address] [place] [address] PCP - GeneralFamily Medicine01/04/24 Nilo Prado MD [address] [place] [phone] MogniagvuVrgmccvebrukmzhn2023Team MemberRelationshipSpecialtyStart [place] [address] [place] [address] PCP - GeneralFamily Medicine05/30/24 Nilo Prado MD [address] [place] [address] NmgkwiubtLbinkbqvvqnikidq72/4/23Team MemberRelationshipSpecialtyStart [place] [address] [place] [address] PCP - GeneralFamily Medicine05/30/24 Nilo Prado MD [address] [place] [address] FehyvdnbeLvyhzizadaypwkiv66/4/23Team MemberRelationshipSpecialtyStart [place] [address] [place] [address] PCP - GeneralFamily Medicine05/30/24 Nilo Prado MD [address] [place] [address] HbourfyocZatccztqwlrnrixt22/4/23Team MemberRelationshipSpecialtyStart [place] [address] [place] [address] PCP - GeneralFamily Medicine05/30/24 Nilo Prado MD [address] [place] [address] FgcoppmahEdkqsjwiagiapahq54/4/23Team MemberRelationshipSpecialtyStart [place] [address] [place] [address] PCP - GeneralFamily Medicine05/30/24 Nilo Prado MD [address] [place] [address] WnjjommbiQgbgofwwawuljcxe45/4/23Team MemberRelationshipSpecialtyStart [place] [address] [place] [address] PCP - GeneralFamily Medicine05/30/24 Nilo Prado MD [address] [place] [address] ZhlqsieqvSsvkvfyxknixnbyw69/4/23Team MemberRelationshipSpecialtyStart [place] [address] [place] [address] PCP - GeneralFamily Medicine05/30/24 Nilo Prado MD [address] [place] [address] HlfivmcckSeadfetinfubwlli10/4/23Team MemberRelationshipSpecialtyStart [place] [address] [place] [address] PCP - GeneralFamily Medicine05/30/24 Nilo Prado MD [address] [place] [address] UhnjtkqkzVgfklpwqwrdtghle08/4/23Team MemberRelationshipSpecialtyStart [place] [address] [place] [address] PCP - GeneralFamily Medicine05/30/24 Nilo Prado MD [address] [place] [address] KjpwpsmqvAnexmrkhgubghnac22/4/23Team MemberRelationshipSpecialtyStart [place] [address] [place] [address] PCP - GeneralFamily Medicine05/30/24 Nilo Prado MD [address] [place] [address] RwcweggxpHehwjzvlbjiucxul22/4/23Team MemberRelationshipSpecialtyStart [place] [address] [place] [address] PCP - GeneralFamily Medicine05/30/24 Nilo Prado MD [address] [place] [address] MfhbrxjuvUzdppoaqvdnmfwlp65/4/23Team MemberRelationshipSpecialtyStart [place] [address] [place] [address] PCP - GeneralFamily Medicine05/30/24 Nilo Prado MD [address] [place] [address] NtahsvsxsWgxvqpbbanubdhgn50/4/23 [place] [address] [place] [address] [facility] Hvkxlvsh30/9/24Team MemberRelationshipSpecialtyStart DateEnd [place]DO [address] [place], [place] [id number] PCP - GeneralFamily Medicine05/30/24 Nilo Prado MD [address] [place] [address] GfszhbsjqLrktvljwfbikqbyv40/4/23 [place] [address] [place] [address] [facility] [facility]24Team MemberRelationshipSpecialtyStart DateEnd Date Kurt Balbuena [facility] [address] [address] 09/21/24Team MemberRelationshipSpecialtyStart DateEnd Date Kurt Balbuena [facility] [address] [address] 09/21/24 Team Status: Active Member Role Status Dates Jennie Durand DO Primary Care Provider Active S tart: July 03, 2024 Julio Peña DOAttending ProviderActiveStart: July 03, 2024 Team MemberRelationshipSpecialtyStart DateEnd Date Kurt Balbuena [facility] [address] [address] 09/21/24Team MemberRelationshipSpecialtyStart DateEnd Date Kurt Balbuena [facility] [address] [address] 09/21/24 Corby Larsen DO [address] [place] [address] Referring PhysicianNeurolog09/27/24 Team Status: Inactive Member Role Status Dates NON STAFF Primary Care Provider Active Start: December 16, 2024 End: December 16hragustín Larsen DOAttending ProviderActiveStart: December 16, 2024 End: December 16, 2024Team MemberRelationshipSpecialtyStart [place] [address] [place], [place] [id number] PCP - GeneralFamily Medicine05/30/24 Nilo Prado MD [address] [address] NoyfmfzneOmqmphomkpgkumri43/4/23 Lisha Bianchi APRN.IRENE [address] [place], [place] [id number] Care PartnerFamily Medicine12/16/24Team MemberRelationshipSpecialtyStart DateEnd Date Kurt Balbuena, LEONOR [facility] [address] [address] 09/21/24 Corby Larsen DO [facility] [address] [address] Referring PhysicianNeurolog09/27/24Team MemberRelationshipSpecialtyStart DateEnd Date Unallocated, Shane Conte MD [address] [place] [address] [facility]CP - [facility]04/13/25 Kurt Balbuena [employer] [address] [address] 09/21/24 Corby Larsen DO [address] [address] Referring PhysicianNeurolog09/27/24Team MemberRelationshipSpecialtyStart DateEnd Date Unallocated, Shane Conte MD [address] [place] [address] [facility] - [facility]04/13/25 Kurt Balbuena [employer] [address] [address] 09/21/24 Corby Larsen DO [address] [address] Referring PhysicianNeurology1 Team Status: Inactive Member Role Status Dates Jennie Durand DO Primary Care Provider Active S tart: May 30, 2025 End: May 30, 2025Fredkaushik Francis DOAttending ProviderActiveStart: May 30, 2025 End: May 30, 2025Team MemberRelationshipSpecialtyStart DateEnd Date Unallocated, Shane Conte MD [address] [place] [address] PCP - GeneralFamily Medicine04/13/25 Kurt Balbuena NP [place] [id number] 09/21/24 Corby Larsen DO [address] [place] [address] Referring PhysicianNeurology1 Team Status: Active Member Role Status Dates Lindy Keen APRN [employer]-C Primary Care Provider Activ e Start: June 06, 2025 Efrem Victor MDAttconstantin ProviderActiveStart: June 06, 2025 Team Status: Inactive Member Role Status Dates Jennie Durand DO Primary Care Provider Active S tart: June 29, 2025 End: June 29, 2025Alexis Helm MDEmejodi ProviderActiveStart: June 29, 2025 End: June 29, 2025Team MemberRelationshipSpecialtyStart DateEnd Date Unallocated, Luiss ProviderMD [address] [place] [address] P[facility] - [facility]04/13/25 Kurt Balbuena NP [address] [address] 09/21/24 Corby Larsen DO [address] [place] [address] Referring PhysicianNeurology1Team MemberRelationshipSpecialtyStart DateEnd Date Unallocated, MD Mathieu Vaughn [facility] [place] [address] PCP - GeneralFamily Medicine04/13/25 Kurt Balbuena NP [address] [address] 09/21/24 Corby Larsen DO [address] [address] Referring PhysicianNeurolog09/27/24 Team Status: Active Member Role/Relationship Status Dates Jennie Durand DO Primary Care Provider Active Team Status: Inactive Member Role/Relationship Status Dates Aaliyah Francis DO Attending Provider Active Start: April 26, 2025 End: April 26Antony Chavis Care ProviderActiveStart: April 26, 2025 End: April 26, 2025 Team Status: Inactive Member Role/Relationship Status Dates Jennie Durand DO Primary Care Provider Active S tart: May 16, 2025 End: May 16, 2025Fredric Tito , DOAttending ProviderActiveStart: May 16, 2025 End: May 16, 2025 Team Status: Inactive Member Role/Relationship Status Dates Jennie Durand DO Primary Care Provider Active S tart: May 30, 2025 End: May 30, 2025Frangie Francis , Attending ProviderActiveStart: May 30, 2025 End: May 30, 2025 Team Status: Active Member Role/Relationship Status Dates Lindy Keen APRN [employer]-C Primary Care Provider Activ e Start: June 06, 2025 Efrem Victor MDAttconstantin ProviderActiveStart: June 06, 2025 Team Status: Inactive Member Role/Relationship Status Dates Jennie Durand DO Primary Care Provider Active S tart: June 29, 2025 End: June 29, 2025Pa Torrecy ProviderActiveStart: June 29, 2025 End: June 29, 2025 Team Status: Inactive Member Role/Relationship Status Dates Jennie Durand DO Primary Care Provider Active S tart: July 12, 2025 End: July 12hristopher M Suzie , DOAttending ProviderActiveStart: July 12, 2025 End: July 12, 2025 Goals (unrecognized section and content) Goals [...] BE BASED ON THE PRIMARY CLINICAL RECORDS. [facility] [email or web address] [facility]. provides no warranty or guarantee of the accuracy or completeness of information in this document.
[2025-07-23 07:37] VITALS: BP 158/90; PULSE 68; O2SAT 98
--- NOTE | 2025-07-23 11:49 | ED.GENADUL1 ---
HPI HPI - General Adult General Chief complaint: Skin/Abscess/Foreign Body Stated complaint: rash Time Seen by Provider: 07/23/25 07:01 Source: patient Mode of arrival: walk-in Limitations: no limitations History of Present Illness HPI narrative: Patient is a 34-year-old female presenting to the emergency department for evaluation of rash. Patient states that she has been having an itchy rash for the last 2 days. For started on her chest and then spread to her arms and legs/groin. She has been using kvxl-wir-ajptqvt Benadryl and cortisone cream, but is only minimally helps her symptoms. She denies any shortness of breath or facial/lip/tongue swelling. No nausea or vomiting or abdominal pain. She states she started new blood pressure medication 2 weeks ago, cannot recall the name of the medication. She denies any involvement in the mouth, nose, eyes, or ears. She denies any new detergents, soaps, or shampoo. Related Data Home Medications ?Medication ?Instructions ?Recorded ?Confirmed duloxetine 60 mg capsule,delayed 60 mg PO BID 06/10/23 06/13/25 release lamotrigine 25 mg tablet 100 mg PO QDAY 04/08/24 06/13/25 gabapentin 100 mg capsule 600 mg PO TID 01/23/25 06/13/25 trazodone 100 mg tablet 200 mg PO .qhs 01/23/25 06/13/25 nifedipine 30 mg tablet,extended 30 mg PO BEDTIME 06/02/25 06/13/25 release Previous Rx's ?Medication ?Instructions ?Recorded acetaminophen 300 mg-codeine 30 mg 1 tab PO Q6H PRN pain 4 days #15 06/02/25 tablet tabs prednisone 20 mg tablet 40 mg (2 x 20 mg) PO DAILY 4 days 07/23/25 #8 tabs Allergies Allergy/AdvReac Type Severity Reaction Status Date / Time buspirone (From BuSpar) Allergy Intermediate tachycardia Verified 07/23/25 06:32 aripiprazole (From Abilify) Allergy Unknown Verified 07/23/25 06:32 COCONUT Allergy Mild Hives Uncoded 07/23/25 06:32 Opioid HPI Opioid Management Most Recent Opioid Data: Last Pain Scale 6 06/13/25, 10:25 Ur Phencyclidine Scrn, (NEGATIVE) Negative 07/22/24, 13:51 Review of Systems ROS Status of ROS 10 or more systems reviewed and unremarkable except as noted in history and below [facility] PFS Social History Smoking status: Current every day smoker Little interest or pleasure in doing things: not at all Feeling down, depressed, or hopeless: not at all Exam Narrative Exam Narrative: CONSTITUTIONAL: Well-appearing, answering questions and following commands appropriately SKIN: There are mild/subtle wheals/urticaria on the bilateral arms, chest, and bilateral lower extremities. No vesicles. EYES: Sclerae white. No lesions in the eyes. EARS, NOSE, THROAT: Moist oral mucosa. No intraoral lesions, vesicles, or ulcerations. RESPIRATORY: Clear to auscultation bilaterally, no wheezes, crackles, or stridor, no use of accessory muscles CARDIOVASCULAR: Normal rate and regular rhythm. There is no S3, S4, murmur, rub. GASTROINTESTINAL: Abdomen is soft, nontender, and nondistended. MUSCULOSKELETAL: No peripheral edema. NEUROLOGIC: Patient is awake and alert. Facies were symmetrical. Constitutional Vital Signs, click to edit/add: Last Vital Signs Temp 98.0 F 07/23/25 06:32 Pulse 68 07/23/25 07:37 Resp 16 07/23/25 07:37 BP 158/90 H 07/23/25 07:37 Pulse Ox 98 07/23/25 07:37 O2 Del Method Room Air 07/23/25 07:37 Course Vital Signs Vital signs: Vital Signs Temperature 98.0 F 07/23/25 06:32 Pulse Rate 70 07/23/25 06:32 Respiratory Rate 19 07/23/25 06:32 Blood Pressure 153/105 H 07/23/25 06:32 Pulse Oximetry 100 07/23/25 06:32 Oxygen Delivery Method Room Air 07/23/25 06:32 Temperature 98.0 F 07/23/25 06:32 Pulse Rate 68 07/23/25 07:37 Respiratory Rate 16 07/23/25 07:37 Blood Pressure 158/90 H 07/23/25 07:37 Pulse Oximetry 98 07/23/25 07:37 Oxygen Delivery Method Room Air 07/23/25 07:37 Medical Decision Making MDM Narrative Medical decision making narrative: Patient is a 34-year-old female presenting to the emergency department for evaluation of an itchy rash on her chest and arms/legs that began 3 days ago. Her vital signs on arrival are significant for hypertension, otherwise were within normal limits. She is afebrile and hemodynamically stable. She is overall well-appearing with no other systemic symptoms. Patient's history and physical examination is consistent with hives/urticaria. This is likely idiopathic, however may be related to a recent new blood pressure medication. She has no systemic symptoms or mucosal involvement to suggest SJS/TEN or dress syndrome. She was treated with IM dexamethasone and oral cetirizine. I do believe the patient is stable for discharge. They were instructed to follow up with her PCP for further care. Return precautions were given including any new or worsening symptoms, including involvement of the mucosal surfaces or other systemic symptoms. She was given a prescription for prednisone 40 mg daily x 4 days. I recommended that should her symptoms worsen, she should likely stop taking her recently prescribed blood pressure medication. Patient understands and agrees to the plan. FINAL IMPRESSION: #Acute urticaria DISPOSITION: Discharged home CONDITION: Good Discharge Plan Discharge Chief Complaint: Skin/Abscess/Foreign Body Clinical Impression: Urticaria Patient Disposition: Home, Self-Care Time of Disposition Decision: 07:14 Condition: Good Mode of Transportation: Private Vehicle Prescriptions / Home Meds: New prednisone 20 mg tablet 40 mg PO DAILY 4 Days Qty: 8 0RF No Action duloxetine 60 mg capsule,delayed release(DR/EC) 60 mg PO BID lamotrigine 25 mg tablet 100 mg PO QDAY gabapentin 100 mg capsule 600 mg PO TID trazodone 100 mg tablet 200 mg PO .qhs nifedipine 30 mg tablet extended release 30 mg PO BEDTIME acetaminophen-codeine 300-30 mg tablet 1 tab PO Q6H PRN (Reason: pain) 4 Days Qty: 15 0RF Print Language: Czech Instructions: Urticaria (ED) Additional Instructions: Should symptoms persist or worsen, stop new blood pressure medication and follow up with PCP. Return to ED should you develop any sores/rashes in your mouth/eyes/nose. Referrals: KAYLEE AMES [Primary Care Provider, Unknown] - 1 week Discharge Date/Time: 07/23/25 07:39
== END 2025-07-23 07:39 | disposition home or self-care (01) ==
LOC: ER 07:28
PROVIDERS: Emergency Provider Student in an Organized Health Care Education/Training Program
DX: L50.9 Urticaria, unspecified (principal); F17.200 Nicotine dependence, unspecified, uncomplicated
CPT/HCPCS: 96372; 99284; J1100

== ENCOUNTER 2025-09-04 12:52 | Emergency (ER) | payer MEDICARE, MEDICAID, SELFPAY ==
--- OUTSIDE RECORDS SUMMARY | 2024-08-22 03:15 | XMS_ITS ---
Author Organization [facility] es Address [address] [place] [address] Care Team Providers Care Video Editing Internship Name Role Phone Ilda Lloyd Primary Care Provider Raghav Walton Unavailable [phone] REASON FOR VISIT Transf. from Ana Elkins Encounters Encounter Location Date Provider Diagnosis [address] [place] [address] 2023 Raghav Walton Plan Of Treatment No Information Progress Notes * LEILA HASSAN LDOB:1990 (34 yo F)Acc No.[id number]:08/22/2024 Behavioral Health Patient: LEILA BARBOUR :?ALEX SmithPDOB:1990???Age:33 Y???Sex: FemaleDate:08/22/2024hone:[phone]:[address] [place], [place] [id number]:Ilda Lloyd Subjective: * Chief Complaints: * T ransf. from Ana Elkins Billing Information: * Procedure Codes: * Electronic signature of VANNESA Smith on 09/04/2025 at 02:08 PM ESTSign off status: Pending * Provider: VANNESA Ornelas Date: 1 10/23/2023 Generated for Printing/Faxing/eTransmitting on:?09/04/2025 02:08 PM EST
--- OUTSIDE RECORDS SUMMARY | 2024-08-23 05:00 | XMS_ITS ---
Author Organization [facility] es Address [address] [facility] [place] [address] Care Team Providers Care Property Management Coordinator Name Role Phone Ilda Lloyd Primary Care Provider Raghav Walton Unavailable [phone] Jennifer Shaikh Unavailable [phone] REASON FOR VISIT RS FROM 08/03 Encounters Encounter Location Date Provider Diagnosis [place] [address] [address] 08/23/2024 Jennifer Shaikh Plan Of Treatment No Information Progress Notes * LEILA HASSAN LDOB:1990 (34 yo F)Acc No.[id number]:08/23/2024 F/U - Patient Patient: KARIN BARBOURICA Isreal :?Jennifer DuartemDOB:1990???Age:33 Y???Sex: FemaleDate:4Phone:[phone]:[address] [place] [address]Pcp:Ilda Lloyd Subjective: * Chief Complaints: * R S FROM 08/03 Billing Information: * Procedure Codes: Care Plan Details* * Electronic signature of FRANCISCO JAVIER Romero on 09/04/2025 at 02:08 PM ESTSign off status: Pending * Provider: Crystal Shaikh Date: 1 10/24/2023 Generated for Printing/Faxing/eTransmitting on:?09/04/2025 02:08 PM EST
--- OUTSIDE RECORDS SUMMARY | 2024-09-21 07:45 | XMS_ITS ---
Author Organization [facility] es Address [address] [facility] [place] [address] Care Team Providers Care Lead Former Name Role Phone Ilda Lloyd Primary Care Provider [phone] Raghav Walton Unavailable [phone] REASON FOR VISIT RS FROM 08/22 TRANSFER FROM Jacqueline MILLIGAN Encounters Encounter Location Date Provider Diagnosis [address] [place] [address] 2024 Raghav Walton Plan Of Treatment No Information Progress Notes * LEILA HASSAN LDOB:1990 (34 yo F)Acc No.[id number]:09/21/2024 Behavioral Health Patient: KARIN BARBOURDION Bach :?ALEX SmithPDOB:1990???Age:33 Y???Sex: FemaleDate:09/21/2024Phone:[phone]:[address] [place], [place] [address]Pcp:Ilda Lloyd Subjective: * Chief Complaints: * R S FROM 08/22 TRANSFER FROM Jacqueline MILLIGAN Billing Information: * Procedure Codes: * Electronic signature of VANNESA Smith on 09/04/2025 at 02:08 PM ESTSign off status: Pending * Provider: VANNESA Ornelas Date: 0 09/21/2024 Generated for Printing/Faxing/eTransmitting on:?09/04/2025 02:08 PM EST
--- OUTSIDE RECORDS SUMMARY | 2024-11-08 05:00 | XMS_ITS ---
Author Organization [facility] es Address [address] [facility] [place] [address] Care Team Providers Care Eyeglass Lens Cutter Name Role Phone Ilda Lloyd Primary Care Provider Raghav Walton Unavailable [phone] Jennifer Shaikh Unavailable [phone] Encounters Encounter Location Date Provider Diagnosis [address] [place] [address] 11/08/2024 Jennifer Shaikh Plan Of Treatment No Information Progress Notes * LEILA HASSAN LDOB:1990 (34 yo F)Acc No.[id number]:11/08/2024 F/U - Patient Patient: Nirav DOWLING LEILA Bach :?Jennifer GeraldmDOB:1990???Age:33 Y???Sex: FemaleDate:11/08/2024Phone:[phone]:[address] [place], [place] [id number]:Ilda Lloyd Billing Information: * Procedure Codes: Care Plan Details* * Electronic signature of FRANCISCO JAVIER Romero on 09/04/2025 at 02:08 PM ESTSign off status: Pending * Provider: Crystal Shaikh Date: 0 11/08/2024 Generated for Printing/Faxing/eTransmitting on:?09/04/2025 02:08 PM EST
--- OUTSIDE RECORDS SUMMARY | 2024-11-22 04:30 | XMS_ITS ---
Author Organization [facility] es Address [address] [facility] [place] [address] Care Team Providers Care Software Support Analyst Name Role Phone Ilda Lloyd Primary Care Provider Raghav Walton Unavailable [phone] REASON FOR VISIT 1 month f/u Encounters Encounter Location Date Provider Diagnosis [place] [address] [place] [address] 2024 Raghav Walton Plan Of Treatment No Information Progress Notes * LEILA HASSAN LDOB:1990 (34 yo F)Acc No.[id number]:11/22/2024 Behavioral Health Patient: KARIN BARBOURDION Bach :?ALEX SmithPDOB:1990???Age:33 Y???Sex: FemaleDate:11/22/2024Phone:[phone]:[address] [place], [place] [id number]:Ilda Lloyd Subjective: * Chief Complaints: * 1 month f/u Billing Information: * Procedure Codes: * Electronic signature of VANNESA Smith on 09/04/2025 at 02:07 PM ESTSign off status: Pending * Provider: VANNESA Ornelas Date: 0 11/22/2024 Generated for Printing/Faxing/eTransmitting on:?09/04/2025 02:07 PM EST
[2025-09-04 13:00] VITALS: BP 140/83; PULSE 63; TEMP 36.8; O2SAT 100; BMI 32.3
--- NOTE | 2025-09-04 13:27 | ED_ITS ---
HPI - URI/Sore Throat General Chief Complaint: Upper Respiratory Infection Stated Complaint: SORE THROAT Time Seen by Provider: 09/04/25 13:26 Source: patient Limitations: no limitations History of Present Illness HPI Narrative: 34-year-old female presents to the emergency department with complaint of flulike symptoms since this past Thursday. Complaints of sore, tickle like sensation in her throat, generalized fatigue, dry nose, body aches. Denies any known fevers. Has had slight cough. States her boss has the flu. Quality:?as above Severity:?moderate Timing:?as above Context: Normal setting and activity? Modifying factors:?as above Associated symptoms: as above Related Data Home Medications ?Medication ?Instructions ?Recorded ?Confirmed duloxetine 60 mg capsule,delayed 60 mg PO BID 06/10/23 09/04/25 release lamotrigine 25 mg tablet 100 mg PO QDAY 04/08/2405/17 gabapentin 100 mg capsule 600 mg PO TID 01/23/2506/13 trazodone 100 mg tablet 200 mg PO .qhs 01/23/2508/15 nifedipine 30 mg tablet,extended 30 mg PO BEDTIME 05/1509/04/25 release acetazolamide 125 mg tablet mg 09/04/25 bisoprolol fumarate 5 mg tablet mg 09/04/25 brexpiprazole 1 mg tablet (Rexulti) mg 09/04/25 cetirizine 10 mg tablet mg 09/04/25 lamotrigine 150 mg tablet mg 09/04/25 triamcinolone acetonide 0.1 % applic topical 09/04/25 topical cream Previous Rx's ?Medication ?Instructions ?Recorded acetaminophen 300 mg-codeine 30 mg 1 tab PO Q6H PRN pa in 4 days #15 06/02/25 tablet tabs Allergies Allergy/AdvReac Type Severity Reaction Status Date / Time buspirone (From BuSpar) Allergy Intermediate tachycardia Verified 09/04/25 13:04 aripiprazole (From Abilify) Allergy Unknown Verified 09/04/25 13:04 nebivolol Allergy Rash Verified 09/04/25 13:07 COCONUT Allergy Mild Hives Uncoded 09/04/25 13:04 Review of Systems ROS Narrative Constitutional: + chills, fatigue. Denies fever HENT: +congestion, sore throat. Denies ear pain, rhinorrhea, sneezing, diff swallowing, voice change Eyes: Denies discharge, eye redness Respiratory: + cough. Denies shortness of breath Cardiovascular: Denies chest pain, palpitations PFSH PFSH Social History Smoking status: Current every day smoker Little interest or pleasure in doing things: not at all Feeling down, depressed, or hopeless: not at all Exam Narrative Exam Narrative: Vital signs noted Nurses notes reviewed CONST:? Nontoxic, well appearing, well nourished, in no distress.? HENT: normocephalic, atraumatic.? Normal hearing.? Normal appearing ext ears, canals, TM's.? + nasal congestion. No nasal discharge.? Moist mucous membranes, no increased oropharyngeal erythema, edema, exudate.? No trismus, maintaining own secretions. EYES: No injection, discharge NECK: supple, no lymphadenopathy CV: normal rate, regular rhythm, no murmur RESP: normal effort, speaking in complete sentences. Lung sounds clear and equal bilat.? No wheezes, rales, rhonchi? NEURO: A&Ox3, steady gait, normal station SKIN: intact, warm, dry, no pallor PSYCHIATRIC: normal mood, affect Constitutional Vital Signs, click to edit/add: Last Vital Signs Temp 98.2 F 09/04/25 13:00 Pulse 63 09/04/25 13:00 Resp 16 09/04/25 13:00 BP 140/83 09/04/25 13:00 Pulse Ox 100 09/04/25 13:00 O2 Del Method Room Air 09/04/25 13:00 Course Vital Signs Vital signs: Vital Signs Temperature 98.2 F 09/04/25 13:00 Pulse Rate 63 09/04/25 13:00 Respiratory Rate 16 09/04/25 13:00 Blood Pressure 140/83 09/04/25 13:00 Pulse Oximetry 100 09/04/25 13:00 Oxygen Delivery Method Room Air 09/04/25 13:00 Temperature 98.2 F 09/04/25 13:00 Pulse Rate 63 09/04/25 13:00 Respiratory Rate 16 09/04/25 13:00 Blood Pressure 140/83 09/04/25 13:00 Pulse Oximetry 100 09/04/25 13:00 Oxygen Delivery Method Room Air 09/04/25 13:00 MDM - URI/Sore Throat MDM Narrative Medical decision making narrative: This is a pleasant 34-year-old female flulike symptoms who presents to the emergency department for evaluation of On arrival, afebrile, vital signs are stable Exam, nontoxic, well appearing patient in no distress. She does sound a little congested. Otherwise no remarkable findings on HEENT exam. Heart regular rate and rhythm. Lung sounds clear and equal bilaterally. Strep, influenza, COVID, RSV screens were all negative Favor flulike illness, upper respiratory infection COVID, RSV, influenza, strep less likely based on lab testing Disposition ? The patient was discharged. Advised uxbp-bxv-djkbext treatment including sore throat lozenges, decongestants, Motrin, Tylenol for pain Plan: Patient will be discharged to home.? Condition at time of disposition: stable.? Advised to follow up with primary provider. Advised to return for any worsening and/or development of new, concerning signs or symptoms PLEASE NOTE: Portions of the medical record may have been produced using electronic interface developer and may contain errors with respect to translation of words which may not have been identified prior to finalization of the chart. Lab Data Labs: Lab Results 09/04/25 Range/Units 13:10 Influenza Type A Ag Negative Influenza Type B Ag Negative SARS-CoV-2 Ag (CV2AG) Negative (NEGATIVE) Streptococcus Screen Negative Discharge Plan Discharge Stand Alone Forms: Work/School Release Chief Complaint: Upper Respiratory Infection Clinical Impression: Flu-like symptoms Pharyngitis Qualifiers: Pharyngitis/tonsillitis etiology: unspecified etiology Qualified Code(s): J02.9 - Acute pharyngitis, unspecified Patient Disposition: Home, Self-Care Time of Disposition Decision: 13:59 Condition: Good Mode of Transportation: Private Vehicle Prescriptions / Home Meds: No Action duloxetine 60 mg capsule,delayed release(DR/EC) 60 mg PO BID lamotrigine 25 mg tablet 100 mg PO QDAY gabapentin 100 mg capsule 600 mg PO TID trazodone 100 mg tablet 200 mg PO .qhs lamotrigine 150 mg tablet cetirizine 10 mg tablet acetazolamide 125 mg tablet triamcinolone acetonide 0.1 % cream TOPICAL bisoprolol fumarate 5 mg tablet Rexulti 1 mg tablet nifedipine 30 mg tablet extended release 30 mg PO BEDTIME acetaminophen-codeine 300-30 mg tablet 1 tab PO Q6H PRN (Reason: pain) 4 Days Qty: 15 0RF Print Language: [place] Instructions: Pharyngitis (ED), Upper Respiratory Infection (ED) Additional Instructions: Obtain iwui-ntl-ffddrnu sore throat lozenges, cough drops, use as directed. Use Motrin/Tylenol for body aches and pain. Obtain decongestant and use as directed. Referrals: KAYLEE AMES [Primary Care Provider, Unknown] - 1 week Discharge Date/Time: 09/04/25 14:36
[2025-09-04 13:35] LABS: SARS-CoV-2 Ag NEGATIVE (NEGATIVE)
--- OUTSIDE RECORDS SUMMARY | 2025-09-04 14:08 | XMS_ITS | Clinical Summary ---
Author Organization [facility] Address [address] [facility] [place] [address] Care Team Providers Care Biology [employer] Name Role Phone Unavailable Primary Care Provider Unavailabl e Source Comments The following information is NOT included in Care Everywhere downloads:Psychiatric notes, ECG results, Cardiac Rehab notes, Pulmonary Function notes, data from [employer] (includes but not limited toPregnancy data,audiograms, eye exams, pre-surgical evaluation notes, well-child exam data).[facility] Allergies Active AllergyReactionsCriticalityNoted DateCommentsNo Known Drug [...] g Active Active Problems ProblemNoted DateDiagnosed DateAcute jbwmfpccapl70/20/2003Streptococcal sore hzjxjk4012/01/2002Acute suppurative otitis media without spontaneous rupture of ear drum06/13/20020773Abtuutz58/30/2002Abdominal pain06/13/2002Educational /30/2002Sprain of ankle12/06/2001 Immunizations ImmunizationAdministration DatesNext DueHep B (peds/adol, 3-dose) (CVX=08) 11/12/2000MMR, Lsbxmhe-Latzo-Ovociym (CVX=03)11/12/2000 Family History Medical HistoryRelationNameCommentsGood healthBrotherGood healthFather HypertensionMaternal GrandfatherSeizure DisorderMaternal Grandfather?ETIOLOGY HypertensionMaternal GrandmotherHypertensionMotherLung DiseaseMotherCHRONIC BRONCHITISDiabetes MellitusPaternal GrandfatherNIDDM. Takes oral medication HypertensionPaternal GrandfatherSkin ConditionSisterEczemaRelationNameStatus CommentsBrotherFatherMaternal GrandfatherMaternal GrandmotherMotherPaternal GrandfatherSister Social History Tobacco UseTypesPacks/DayYears UsedDateSmoking Tobacco: Smoker, Current Status UnknownAlcohol UseStandard Drinks/WeekCommentsNot Asked0 (1 standard drink = 0.6 oz pure alcohol)Sexually ActiveBirth ControlPartnersCommentsNeverSubstance Use TypesUse/WeekCommentsNot AskedCommentsNoSex and Gender InformationValue Date RecordedSex Assigned at BirthNot on fileLegal CvaFjymvc93/04/2012 9:12 AM ESTGender IdentityNot on fileSexual OrientationNot on file Last Filed Vital Signs Vital SignReadingTime TakenCommentsBlood Kcnapvbx951/7502 4:44 PM EST Gzxey943611/01/2015 4:44 PM WPUBqjqocjtvxn08.4 ??C (99.4 ??F)11/01/2015 4:44 PM ESTRespiratory Sbpt338905/17/2013 5:14 PM EDTOxygen Ixxppmhjnu35%11/01/2015 4:44 PM ESTInhaled Oxygen Concentration--Uhgjxc08.9 kg (149 lb 12.8 oz)12/01/2002 9:45 AM JABDodgts732.2 cm (5' 7 )11/01/2015 4:44 PM ESTBody Mass Index-- Plan of Treatment Health MaintenanceDue DateLast DoneCommentsMammography (shared decision-making, age 35-39)1988Hepatitis B (HBV) Vaccine (2 of 3 - 3-dose series)12/10/2000 11/12/2000HIV Test12/18/2003Hepatitis C Vxkfcczw97/05/2007Tdap Jxzyqnp9512/17/2006 Hepatitis A (HAV) Vaccine (optional start 19+ years)12/18/2007Pap Smear 2009HPV Vaccine (optional start 27-45 years)12/18/2015COVID-19 Vaccine ( - 2024- season)2025Influenza Vaccine (#1)2025Shingles (RZV) Vaccine (1 of 2)2038MammographyDiscontinuedPneumococcal Vaccine(s)Aged Out No longer eligible based on patient's age to complete this topic Insurance * Guarantor: Shazia Chou TypeRelation to PatientDate of BirthPhone Billing KhmkuigUsjihkfwwsbeaTdfr94/05/1991 [address] [place] [address]
--- OUTSIDE RECORDS SUMMARY | 2025-09-04 14:08 | XMS_ITS | Clinical Summary ---
Author Organization [facility] Address [address], [address] [place] [address] Care Team Providers Care Senior Physician Name Role Phone Jennie Durand DO Primary Care Provider [phone] Allergies Active AllergyReactionsCriticalityNoted DvdfKbriepruKdlhhbzmvuyy37/13/2023 Hxqvbblqx40/02/2021oconut (Cocos Nucifera)RyvvhjrYmxwsb97/04/2020Coconut Flavoring Agent (Non-Screening)WcclnzitotvCoqo98/26/2020 coconut Medications MedicationSigDispense QuantityRefillsLast FilledStart DateEnd DateStatus varenicline (CHANTIX) 1 MG tablet as ymlmkf5208/27/2021ctive traZODone (DESYREL) 100 MG tablet as vuwqsa1810/29/2022ctive Multiple Vitamins-Minerals (MULTI-DAY PLUS MINERALS PO) Take [...] Mon Post-op 04-24-21 89 y Completed at [facility]- will request 6 Mon Post-op 07-24-21 204 [...] (BMI 30-39.9)07/24/2021 Status post gastric bypass for bokdwkb8701/07/2021Vitamin D ptufugrasv87/14/2020 History of nicotine use05/23/2020Gastroesophageal reflux disease without /09/2020Borderline personality gjgsanzf98/09/2020Flat feet 05/23/2020Bilateral foot pain05/23/2020Anxiety and ihaqnfbjhm52/02/2020Bipolar disease, dztjdry0905/16/20201932Bjtorafyf14/02/2020 Resolved Problems ProblemNoted DateDiagnosed DateResolved ZyenOgjzqajlckz32/08/202309/ Omental mvkhnbdeab56/20/202109/Intra-abdominal magfzjj8101/30/2021 05/27/20234393Jrstbedumen77/15/202106/Morbid obesity with BMI of 40.0-44.9, adultGastroesophageal reflux disease with esophagitis without hajouhtdce58/13/2023Hiatal midprm4607/24/2021 Family History Medical HistoryRelationNameCommentsCancerFatherOtherFatherALSCancerMotherstage 4 pancreaticDiabetesMotherHigh Blood [...] IP Abuse ScreeningAnswerDate RecordedRead-Only, Retired: Physical Abuse Fbwhky9609/18/2023ead-Only, Retired: Verbal QfdavFmmjjk71/05/2024ead-Only, Retired: Emotional meodiUmwldb64/05/2024ead-Only, Retired: Financial Abuse Qloxtf3709/18/2023ead-Only, Retired: Sexual fwavpUpdpeb75/05/2024Comments NoSex and Gender InformationValueDate RecordedSex Assigned at BirthFemale 11/29/2024 9:44 AM EDTLegal SjkVuitxf02/30/2020 11:40 AM EDTGender IdentityNot on fileSexual OrientationNot on file Last Filed Vital Signs Vital SignReadingTime TakenCommentsBlood Kawrkqnn438/8205 1:40 PM EDT Niylm9571/07/2025 1:40 PM RTVMkuofrsoxqk92.2 ??C (97.1 ??F)09/18/2023 8:24 AM ESTRespiratory Hfao828910/13/2023 1:00 PM ESTOxygen Ogyqqcursa14%01/18/2025 1:40 PM EDTInhaled Oxygen Concentration--Hemhsa34.1 kg (203 lb)01/18/2025 1:40 PM EDT Vtqvvt299.2 cm (5' 7 )01/18/2025 1:40 PM EDTBody Mass Index31.7901/18/2025 1:40 PM EDT Plan of Treatment Health MaintenanceDue DateLast DoneCommentsDepression Avrfqzbigm48/05/2001 Varicella vaccine (1 of 2 - 13+ 2-dose series)2001HIV wnkdcu1512/18/2003 Hepatitis C rhfvbc1212/17/2006DTaP/Tdap/Td vaccine (1 - Tdap)12/18/2007Hepatitis B vaccine (1 of 3 - 19+ 3-dose series)12/18/2007Pneumococcal 0-49 years Vaccine (1 of 2 - PCV)12/18/2007Pap smear2009Cervical cancer aftutu4912/17/2018HPV (without or with Pap)2018Annual Wellness Visit (Medicare)12/01/2024Flu vaccine (#1)51COVID-19 Vaccine (3 - 2024- season)2025 04/29/2021, 1A1C test (Diabetic or Prediabetic)Tanumthggmnh53/29/2023, 03/19/2023, 07/18/2022, Additional history existsHPV vaccine (No [...] complete this topic Procedures Procedure NamePriorityDate/TimeAssociated DiagnosisCommentsHEMOGLOBIN V5NKepcqho 08/12/2023 7:45 AM EST Gastroesophageal reflux disease without esophagitis Anxiety and depression Status post gastric bypass for obesity Overweight (BMI 25.0-29.9) Low iron Vitamin D deficiency from Last 3 Months or Most Recently Relevant to Health Maintenance Results * Hemoglobin A1C (08/12/2023 7:45 AM EST)ComponentValueRef RangeTest Method Analysis TimePerformed AtPathologist SignatureHemoglobin A1C5.64.0 - 6.0 % 08/12/2023 7:45 AM ESTMERCY LABORATORIESEstimated Avg Oujfbdj268ot/dL 08/12/2023 7:45 AM ESTMERCY LABORATORIESComment: The ADA and AACC recommend providing the estimated average glucose result to permit better patient understanding of their HBA1c result. Specimen (Source)Anatomical Location / LateralityCollection Method / Volume Collection TimeReceived TimeBLOOD SPECIMEN / Ndqujhu4908/12/2023 7:45 AM EST 08/12/2023 7:46 AM EST Narrative Authorizing ProviderResult TypeResult StatusSheri Isreal Chan AUTOMOBILE UPHOLSTERY TRIM INSTALLER - CNPCHEMISTRY ORDERABLESFinal ResultPerforming OrganizationAddressCity/State/ZIP CodePhone Number [facility] [address], [place] [address] [phone] [facility] [address] [phone] [phone] from Last 3 Months or Most Recently Relevant to Health Maintenance Insurance on file Advance Directives * Full Code (Latest Code Status on File) Date ActivatedDate InactivatedComments01/31/2021 11:30 PM02/01/2021 12:23 PM * Full Code Date ActivatedDate InactivatedComments01/07/2021 12:20 PM01/08/2021 8:31 PM Care Teams Team MemberRelationshipSpecialtyStart DateEnd Date Jennie Durand DO [address] [place] [phone] PCP - [facility]Mer[facility]ly [facility]11/19/22
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
--- OUTSIDE RECORDS SUMMARY | 2025-09-04 14:09 | XMS_ITS | Clinical Summary ---
Author Organization [facility] Address [address] [place] [address] Care Team Providers Care Warehouse Checker Name Role Phone Camilo Yolande Lehman MISSION ANALYST Unavailable [phone] Pop Larsen DO Unavailable [phone] Unallocated, Noms Provider MD Primary Care Provi andres Allergies Active AllergyReactionsCriticalityNoted PnoiDuvnlrwvFtxgjlqpqdpg03/19/2024 CzzggonweEmbgxirssgefYyp81/08/2025Coconut (Cocos Nucifera)01/31/2024 Medications MedicationSigDispense QuantityRefillsLast FilledStart DateEnd [...] tablet Take 1 tablet by mouth Daily06/06/2025tive Active Problems ProblemNoted DateDiagnosed JcrsSwswnoxe73/01/2025Pseudoangiomatous stromal hyperplasia of tfdekm5304/13/2025lcohol abuse12/22/2024Difficulty walking 12/22/2024Headache after spinal blobhrfw57/10/2025Internal derangement of left knee12/22/2024Iron deficiency mwjyvy8612/22/2024 Overview (12/22/2024): noted in 09/16/2024 [facility] Records page 5. added per OP CDI policy. Muscle weakness-fpnznqh2712/22/2024Sinus tarsi syndrome of right ankle12/22/2024 Tarsal tunnel /10/2025urrent xkeeqa4308/08/2024 Overview (12/22/2024): Added secondary to documentation in Social History. Family history of ischemic heart xgxqxep9008/08/2024MI 29.0-29.9,adult08/08/2024 Yvbgqlbhfhgt37/25/2024Shortness of hozbqv5008/08/2024Family history of cancer 03/08/2024Family history of pancreatic lubtcn7903/08/2024History of hysterectomy 03/08/2024Left breast mass03/08/20247654Fwdhygeq44/19/0879Dzmnocba80/19/2024Ulnar qashkmgjea30/19/2024Other chronic pain01/31/2024Headache, unspecified headache type01/31/2024 Overview (01/31/2024): Patient has significant headaches which started a couple of weeks ago and prompted this evaluation.She has recently resumed topiramate. I'm concerned that this may interfere with the quality of the lumbar puncture diagnostically. As such, I recommend she stop this until after the procedure. Vssgygtgrhy70/19/2024 Overview (01/31/2024): Clinical exam finding mandating lumbar puncture as above. Also need to have ophthalmology evaluation. Visual qktfgaxzatr81/19/2024 Overview (01/31/2024): See above. Tension type syfgkjxy62/19/2024 Overview (01/31/2024): Patient has had an increase [...] a recent relapse with alcohol over the Apache holidays but is 17 days sober again today and back on vivitrol. She does have a history of significant psychiatric disease. I strongly suggested she follow closely with psychiatry in order to further help control the symptoms long-term. Ftpysbgoxlnv93/19/2024 Overview (01/31/2024): It is my impression that [...] Plan: EMG of the bilateral lower extremities Fchvikzpltt91/19/2024Chronic alcoholism in lunqsanql48/22/2024yst of pancreas 3Bipolar affective disorder in xrmoxjnlb03/27/2023Low iron05/27/2023H/O foot agajyxy61/09/2023Primary mctumrmnwvna35/09/2023Intestinal malabsorption 11/19/2022History of gastric dbbvlf6301/07/2021Vitamin D zazucohgfe00/14/2020 Bilateral foot pain05/23/2020Borderline personality vouwepec05/09/2020Flat feet 05/23/2020Gastroesophageal reflux disease without psluejmvktf11/09/2020History of nicotine use05/23/2020Anxiety and uobkqkywel73/02/9831Rxxwdkubc10/02/2020Poor growth, affecting management of mother, antepartum condition or complication ([facility])07/03/2008cute yfwmdxvubnq74/20/2003Streptococcal sore lmgyuh1012/01/2002Abdominal pain06/13/2002Acute suppurative otitis media without spontaneous rupture of ear drum06/13/2002Educational zzlisztvteww71/30/2002 Ciylfwj0106/13/2002Sprain of ankle12/06/2001 Encounters DateTypeDepartmentCare HoxoLagutkdhdab53/20/2025 1:45 PM EDTOffice Visit [facility] [address] [place] [address] Sarah Franz MD IIH (idiopathic intracranial hypertension) (Primary Dx); Loss of part of visual field; Papilledema associated with increased intracranial bolbyfan24/20/2025amboo flowsheet [facility] [address] [place] [address] Sarah Franz MD 07/03/20251810Aoalpm60/16/2025 11:30 AM EDTOffice Visit [facility] [address] [facility] [address] [place] [address] Shaji Francis H, DO Hematoma (Primary Dx); Pseudoangiomatous stromal hyperplasia of ogoljj4206/29/20256674Exoxtv33/09/2025Travel 06/14/2025 2:45 PM EDTOffice Visit [facility] [address] [facility] [address] [place] [address] Shaji Francis H, DO Hematoma (Primary Dx); Pseudoangiomatous stromal hyperplasia of dfjbhc8006/14/20251032Edtjuk69/24/2025Orders Only [facility] [address] [facility] [address] [place] [address] Shaji Francis, DO 06/05/2025Travelfrom Last 3 Months Family History Medical HistoryRelationNameCommentsALSFatherDiabetesMotherAmyHyperlipidemia [...] have six or more drinks on one occasion?Never4Comments UnknownSex and Gender InformationValueDate RecordedSex Assigned at BirthNot on fileLegal IapDgptgj53/15/2023 6:39 PM EDTGender IdentityNot on fileSexual OrientationNot on file Last Filed Vital Signs Vital SignReadingTime TakenCommentsBlood Wxqebcqi728/7006/29/2025 11:08 AM EDT Culmz0251 10:45 AM QGLVwllpudavzh44.6 ??C (96.1 ??F)04/09/2025 10:45 AM EDTRespiratory Rate--Oxygen Isoagdttso42%04/09/2025 10:45 AM EDTInhaled Oxygen Concentration--Osarsp47.5 kg (195 lb)06/29/2025 11:08 AM QFICxforv829.2 cm (5' 7 )06/29/2025 11:08 AM EDTBody Mass Index30.5406/29/2025 11:08 AM EDT Plan of Treatment Health MaintenanceDue DateLast DoneCommentsMedicare Annual Wellness (AWV) 1988Pneumococcal Vaccine: Pediatrics (0 to 5 Years) and At-Risk Patients (6 to 64 Years) (1 of 2 - PCV)12/18/2007COVID-19 Vaccine (3 - season) /, 04/08/2021Influenza Vaccine (#1)/05/2020, 07/09/2020 Procedures Procedure NamePriorityDate/TimeAssociated DiagnosisCommentsOCT, OPTIC NERVE - OU - BOTH VLVSApxqnkb62/20/2025 2:44 PM EDT IIH (idiopathic intracranial hypertension) CARRIZALES VISUAL FIELD - OU - BOTH BDJLSeohnbe02/20/2025 2:44 PM EDT IIH (idiopathic intracranial hypertension) from Last 3 Months Results * OCT, [...] and adequate. Authorizing ProviderResult TypeResult StatusSarah Franz MDCOX W[facility]OMOGRAP[facility] Final Result * Carrizales Visual Field [...] normal observations. Authorizing ProviderResult TypeResult StatusSarah Franz MDCOX [facility] VISUAL FIELD Final Result from Last 3 Months Insurance Care Teams Team MemberRelationshipSpecialtyStart DateEnd Date Unallocated, Noms MD Mathieu Conte [place], [place] [address] PCP - GeneralFamily Medicine04/13/25 Yolande Page NP [facility] [address] [place] [address] 09/21/24 Pop Larsen DO [address] [place] [address] Referring PhysicianNeurology1
--- OUTSIDE RECORDS SUMMARY | 2025-09-04 14:09 | XMS_ITS | Clinical Summary ---
Author Organization [facility] Address [address] [place] [address] Phone Care Team Providers Care Client Leader Name Role Phone Generic Provider, No Assigned Pcp MD Primary Car e Provider Unavailable Allergies Active AllergyReactionsCriticalityNoted JarkUuxyupcbTqdckfswgkigUgwic94/13/2023 EsefmekynQoois30/02/5324GbiujitZjqjoldbAbv73/10/2020Coconut FlavorAnaphylaxis High05/09/2020 coconut Coconut Oil, JsvwqggpitxlNcauvwdWdgoul12/04/2020 Medications MedicationSigDispense QuantityRefillsLast FilledStart DateEnd DateStatus DULoxetine (Cymbalta) [address] capsule Take 90 mg by mouth.02/29/2020Active yiogfrawghjj-eyb-xtdi-FA-vit K (Bariatric Multivitamins) 45 mg iron- 800 [...] 7 days.06/04/2024ctive Active Problems ProblemNoted DateDiagnosed DateCurrent svxiuc0608/08/2024Other chest pain 08/08/2024Family history of ischemic heart uyiicrk4508/08/2024MI 29.0-29.9,adult 08/08/2024Shortness of mqgmhy856471Ffhnifokqtye30/25/2024ipolar affective disorder in drymhwoyb24/27/2023Low iron5286Wymmlbwyeu30/09/2023H/O foot kqzbsus0011/20/2022Idiopathic intracranial ljiamqqtposf10/09/2023rimary zzzlogutilse02/09/2023Intestinal whkhicsfdjeat46/08/2023History of gastric cfcrdm6501/07/2021Vitamin D icbfspoirq05/14/2020Bilateral foot pain05/23/2020 Borderline personality ebrhoxpl93/09/2020Flat feet05/23/2020Gastroesophageal reflux disease without zmxyqbgioxl95/09/8923Edbelpzla72/02/2020Anxiety and fsddgmogqn73/02/2020Bipolar disease, oposirm9605/16/2020Poor growth, affecting management of mother, antepartum condition or umyeahpevzkh68/20/2008 Acute rjycpelcliw56/20/2003Streptococcal sore mhuwxi1112/01/2002Abdominal pain 06/13/2002Acute suppurative otitis media without spontaneous rupture of ear drum 06/13/20024550Ycgfzom36/30/2002Sprain of ankle12/06/2001 Immunizations ImmunizationAdministration DatesNext DueHepatitis B [...] alcohol)CommentsUnknownSex and Gender InformationValueDate RecordedSex Assigned at HbicvTnrkjn28/29/2024 9:48 AM ESTLegal RxsLilbvk36/25/2022 2:23 PM ESTGender XrscbbxuFmckyg04/29/2024 9:48 AM ESTSexual OrientationChoose not to jprxoafz25/29/2024 9:48 AM EST Last Filed Vital Signs Vital SignReadingTime TakenCommentsBlood Jwnphsub182/7609/13/2024 9:40 AM EST Qnrks307108/08/2024 3:28 PM ESTTemperature--Respiratory Rate--Oxygen Saturation-- Inhaled Oxygen Concentration--Ivpxnt70.3 kg (188 lb)09/13/2024 9:40 AM ESTHeight 170.2 cm (5' 7 )09/13/2024 9:40 AM ESTBody Mass Index29.441 9:40 AM EST Plan of Treatment Health MaintenanceDue DateLast DoneCommentsHIV Rkguvhubg87/05/1989Lipid Panel 1988Medicare Annual Wellness Visit (AWV)1988Hepatitis B Vaccines (2 of 3 - 3-dose series)Hepatitis C Qbkobyepn59/05/2007 Pneumococcal Vaccine: Pediatrics and At-Risk Adult Patients (1 of 2 - PCV) 12/18/2007HPV/Diqmhk6312/17/2009DTaP/Tdap/Td Vaccines (1 - Tdap)2010HPV Vaccines (1 - 3-dose standard series)12/18/2015Cervical Cancer Screening 06/10/2016Pap Smear06/10/, 08/02/2012, 08/31/2009, Additional history existsCOVID-19 Vaccine (1 - 2024- season)2025Influenza Vaccine (#1)Diabetes Tpxekuvja57, 08/12/2023, 07/18/2022, Additional history existsZoster Vaccines (1 of 2)2038MMR PjswoxhkXdakmgddx24/01/2001HIB VaccinesAged OutNo longer eligible based on patient's [...] complete this topic Procedures Procedure NamePriorityDate/TimeAssociated DiagnosisCommentsCONVERTED PLATINUM SMITH LJLPIBRWQmsresl58/27/2013 12:00 AM EDT from Last 3 Months or Most Recently Relevant to Health Maintenance Results * CONVERTED PLATINUM SMITH CYTOLOGY (06/10/2013 12:00 AM EDT)ComponentValueRef RangeTest MethodAnalysis [...] MAEGAN ARIAS ?06/15/13 Electronically Signed Out By [facility], Cytology/ By the signature on [...] Source of Specimen A: Unknown Part Type [facility] Department of Pathology [address] COPATHCONVERTED FINAL DIAGNOSISSatisfactory for evaluation. Transformation [...] ? - Signed by: MAEGAN ARIAS ?06/15/13 [facility] COPATHCONVERTED CLINICAL DIAGNOSIS-HISTORY- PREVIOUS CASES ? [id number] [...] ??MAEGAN ARIAS ?- Rosa Conversion Report - [facility] COPATHCONVERTED FINAL REPORT PDF LINK TO COPY AND PASTE \copathshare\copath\PDF \[id number].pdfENDLESS MOUNT[facility]INS [facility] COPATHSpecimen (Source) Anatomical Location / LateralityCollection Method / VolumeCollection Time Received TimeUnrecognized Part Type 9:48 AM EDT Narrative Authorizing ProviderResult TypeResult StatusCopath ConversionLAB CYTOLOGY ORDERABLESFinal ResultPerforming OrganizationAddressCity/State/ZIP CodePhone Number [facility] COPATH [address] [place] [address] from Last 3 Months or Most Recently Relevant to Health Maintenance Insurance Care Teams Team MemberRelationshipSpecialtyStart DateEnd Date Generic Provider, No Assigned P[place], [place] [address] PCP - GeneralGeneral Practice11/03/24
--- OUTSIDE RECORDS SUMMARY | 2025-09-04 14:09 | XMS_ITS | Clinical Summary ---
Author Organization [facility] Address [address] [place] [address] Care Team Providers Care Cad Cam Programmer Name Role Phone Nilo Prado MD Unavailable Lisha Worthington FOOD SERVICE.MISSING PERSONS INVESTIGATOR Unavailable Allergies Active AllergyReactionsCriticalityNoted DateCommentsAripiprazoleMental Status Change,Other: See Comments,Lbrezje84/06/7781VqtgnvzwpHekpoul22/02/2021Coconut KrnbiauxLmy86/09/2023 Medications MedicationSigDispense QuantityRefillsLast FilledStart DateEnd DateStatus mhkelbbguqyd-crg-fjsb-FA-vit K (BARIATRIC MULTIVITAMINS) 45 mg iron- 800 [...] DateDiagnosed DateLeft breast mass03/08/2024Family history of pancreatic ddrdyn6003/08/2024Family history of auowfu1403/08/2024History of flivxddcvynn29/25/2024anic sdnogrhs46/25/2024History of substance abuse 01/31/2024 Overview (03/08/2024): Patient did have a recent relapse with alcohol over the holidays but is 17 days sober again today and back on vivitrol. She does have a history of significant psychiatric disease. I strongly suggested she follow closely with psychiatry in order to further help control the symptoms long-term. Borderline personality itdiouhw48/22/2024hronic alcoholism in remission 01/04/2024yst of fkikzapp45/30/2023ipolar affective disorder in remission 06/10/2023Idiopathic intracranial qzbvposldlot26/09/3049Jxwwhkachj50/09/2023Hx of gastric yvmhel7611/20/2022H/O foot zywezkx4411/20/2022nxiety disorder, nhyfbqovzba49/20/2022History of nicotine use05/23/2020 Resolved Problems ProblemNoted DateDiagnosed DateResolved DatePlantar qqpwiwqko14/25/2024 03/08/2024Obesity, Class III, BMI 40-49.9 (morbid obesity)/ Primary /09/202306/oor growth, affecting management of mother, antepartum condition or ynpxjqrepjvh89 Encounters DateTypeDepartmentCare SyndAarbwrfkycc41/02/2025Interfaced Data Watch Supervisor Management [address] [place] [address] Soren Lerma MD 08/03/2025Interfaced Data Watch Supervisor Management [address] [place] [address] Soren Lerma MD from Last 3 Months Immunizations ImmunizationAdministration DatesNext Duehepatitis B (HepB) vaccine, 3-dose series, age 0 yr - 19 yr (ENGERIX B-PEDS, RECOMBIVAX HB-PEDS)11/12/2000influenza (IIV4) vaccine, age 6 mo - 64 yr, quadrivalent, PF (AFLURIA, FLUARIX, FLULAVAL, FLUZONE)07/09/2020influenza (LAIV) vaccine, nasal, unspecified formulation 07/09/2020influenza vaccine, unspecified oirescradmh13/26/2020measles mumps rubella (MMR) vaccine (M-M-R II, PRIORIX)11/12/2000 Family History Medical HistoryRelationCommentsAnxiety disorderBrother 2ALSFatherBlood Clots FatherCancerFatherbladderHeart AttackMaternal GrandfatherCervical CancerMaternal GrandmotherhysterectomyHeart diseaseMaternal GrandmotherRenal Cell Cancer Maternal GrandmotherCervical CancerMotherhysterectomyDiabetesMotherHypertension MotherPancreatic CancerMotherStrokeMothermini strokePancreatic CancerPaternal GrandfatherAutismSonRelationStatusCommentsBrother 1AliveBrother 2AliveFather DeceasedMaternal GrandfatherDeceasedMaternal GrandmotherAliveMotherDeceased Paternal GrandfatherDeceasedPaternal GrandmotherDeceasedSonAlive Social History Tobacco UseTypesPacks/DayYears UsedDateSmoking Tobacco: Every UwgLycqdeahzt355 Smokeless Tobacco: Never Tobacco Cessation:Ready to Q uit: Not Asked; Counseling Given: Not Answered Alcohol UseStandard Drinks/WeekCommentsYes0 (1 standard drink = 0.6 oz pure alcohol)13 days sober- 07/04/2024HC UtilitiesAnswerDate RecordedIn the past 12 months has the [employer], [employer], or water [employer] threatened to shut off services in your home?No03/02/2024Social Connection and Isolation PanelAnswer Date RecordedIn a typical week, how many times do you talk on the phone with family, friends, or neighbors?More than three times a week03/02/2024How often do you get together with friends or relatives?Never03/02/2024How often do you attend jainism or restorationist services?Never03/02/2024o you belong to any clubs or organizations such as jainism groups, unions, fraternal or athletic groups, or school groups?No03/02/2024How often do you attend meetings of the clubs or organizations you belong to?Never03/02/2024re you , , , , never , or living with a partner?Etwhpmw3303/02/2024UDIT-C AnswerDate RecordedQ1: How often do you have a drink containing alcohol?Patient fyzbibdg36/19/2024Q2: How many drinks containing alcohol do you have on a typical day when you are drinking?Patient vghslezn16/19/2024Q3: How often do you have six or more drinks on one occasion?Never03/02/2024Overall Financial Resource Strain (CARDIA)AnswerDate RecordedHow hard is it for you to pay for the very basics like food, housing, medical care, and heating?Not very hard 03/02/2024HQ-2AnswerDate RecordedPHQ-2 wfzqx583Finalta view hospital [place] of Occupational Health - Occupational Stress QuestionnaireAnswerDate RecordedDo you feel stress - tense, restless, nervous, or anxious, or unable to sleep at night because yourmind is troubled all the time - these days?Only a mebfgc1503/02/2024 Exercise Vital SignAnswerDate RecordedOn average, how many [...] to sleep or slept in ashelter (including now)?No03/02/2024rea Deprivation IndexAnswerDate RecordedNational Score (1-100), lower number is lower btdh194902/27/2023State Score (1-10), lower number is lower zjwk3783Data from: https://www.neighborhoodatlas.[facility].[place] healthcare.edu/. Last address used for dugaoredoof[address] [facility]3CommentsNoSex and Gender InformationValueDate RecordedSex Assigned at UjtirFjxsqw08/26/2022 6:05 PM EDT Legal WocMgriua17/02/2012 10:01 AM ESTGender PbbvxuwtLsjbjm10/02/2022 11:52 AM EDTSexual VowzfkpjgltMjrdurdt00/26/2022 6:05 PM EDT Last Filed Vital Signs Vital SignReadingTime TakenCommentsBlood Bhbhyysj575/7207/25/2024 3:08 PM EST Xrnld334507/25/2024 3:08 PM HMZQxbzfrmsvrc10.6 ??C (97.9 ??F)08/31/2023 11:07 AM ESTRespiratory Efrf020606/12/2010 7:00 AM EDTOxygen Wqtrgibhnh154%07/25/2024 3:08 PM ESTInhaled Oxygen Concentration--Ktopyr90.8 kg (184 lb 11.9 oz)07/25/2024 3:08 PM OASBlbjcw660.2 cm (5' 7 )07/04/2024 11:01 AM EDTBody Mass Index28.94 07/04/2024 11:01 AM EDT Plan of Treatment Health MaintenanceDue DateLast DoneCommentsHepatitis B Vaccine (2 of 3 - 3-dose series)DTaP,Tdap,Td Vaccine (1 - Tdap)12/18/2007Pneumococcal Vaccine (1 of 2 - PCV)12/18/2007Cervical Cancer Rmrfithxq75/05/2010HPV Vaccine (1 - 3-dose SCDM series)12/18/2015Medicare Advantage Annual Wellness Visit 09/14/2024Influenza Vaccine (#1)51, 07/09/2020, 07/09/2020 Covid-19 TvszqilXitcgzdphjvx30/16/2021, 04/08/2021HIV ScreeningCompleted 02/25/2024Hepatitis C SqjiazvbyIurpywswe29/13/2024 Medical Devices ImplantedTypeAreaManufacturerDevice IdentifierShelf Expiration DateModel / Serial / LotBreast Us Core Bx Clip Implanted:Qty: 1 on 07/11/2024 by Michelle [facility] MD at [facility] FHCLeft: BreastBARD PERIPHERAL VOARKRMU36/28/2027/ / [id number]:Ribbon clip Procedures Procedure NamePriorityDate/TimeAssociated DiagnosisCommentsHIV 1/2 COMBO WITH REFLEX TO DRMDPUFQBYIPAHYIstgvtq11/13/2024 7:51 AM EDT Routine health maintenance HEPATITIS C ANTIBODY IA WITH OTHETFCNHRGMNvhthyu38/13/2024 7:51 AM EDT Routine health maintenance from Last 3 Months or Most Recently Relevant to Health Maintenance Results * HIV 1/2 COMBO WITH REFLEX TO DIFFERENTIATION (02/25/2024 7:51 AM EDT)Component ValueRef RangeTest MethodAnalysis TimePerformed AtPathologist SignatureHIV 12 Combo (Ag/Ab)LpqxivabyypPeedvpejqpm63/13/2024 5:32 PM EDTCRE[facility]Y [facility]ITAL [facility] LABHIV-1/2 AB (Confirmatory)02/25/2024 5:32 PM EDTCREGENCY HOSPITAL COMPANY LABComment:Test not indicated.HIV Dxqyzkqbxhemdd80/13/2024 5:32 PM EDT [facility]: No evidence of HIV-1 or HIV-2 infection. Should recent infection be suspected, repeat testing may be considered 2-3 weeks after this draw. [place] Rev. Code 3701.243(E): This information has been [...] 7:51 AM EDT Narrative Authorizing ProviderResult TypeResult StatusTrevokeshav Min DOLABORATORYFinal ResultPerforming OrganizationAddressCity/State/ZIP CodePhone Number [facility] [address] * HEPATITIS C ANTIBODY IA WITH CONFIRMATION (02/25/2024 7:51 AM EDT)Component ValueRef RangeTest MethodAnalysis TimePerformed AtPathologist SignatureHep C Antibody HLHshybvpnFdmjzklu62/13/2024 6:42 PM EDTCREGENCY HOSPITAL COMPANY LABComment:The result suggests no evidence of active infection with Hepatitis C virus. Should recent infectionbe suspected, repeat testing may be considered 4-6 weeks after this draw.Specimen (Source)Anatomical Location / Laterality Collection Method / VolumeCollection TimeReceived TimeBloodBLOOD SPECIMEN / UnknownVenipuncture / Srzqsip4902/25/2024 7:51 AM EDT02/25/2024 7:51 AM EDT Narrative Authorizing ProviderResult TypeResult StatusTrevokeshav Min DOLABORATORYFinal ResultPerforming OrganizationAddressty/State/ZIP CodePhone Number [facility] [address] from Last 3 Months or Most Recently Relevant to Health Maintenance Insurance Care Teams Team MemberRelationshipSpecialtyStart DateEnd Nilo Prado MD [address] [place] [address] ZdqpmawexTyiiwrdqakfooupi28/4/23 Lisha Worthington APRN.CNP [address] [place] [address] Care PartnerFamily Medicine12/16/24
== END 2025-09-04 14:36 | disposition home or self-care (01) ==
LOC: ER 14:04
PROVIDERS: Emergency Provider Emergency Medicine
DX: J02.9 Acute pharyngitis, unspecified (principal); F17.200 Nicotine dependence, unspecified, uncomplicated; R68.89 Other general symptoms and signs
CPT/HCPCS: 87070; 87804; 87811; 87880; 99283

== ENCOUNTER 2025-09-09 08:19 | Emergency (ER) | payer MEDICARE, MEDICAID, SELFPAY ==
--- OUTSIDE RECORDS SUMMARY | 2024-08-22 03:15 | XMS_ITS ---
Author Organization [facility] es Address [address] [place] [address] Care Team Providers Care Drain Tile Machine Operator Name Role Phone Ilda Lloyd Primary Care Provider Raghav Walton Unavailable [phone] REASON FOR VISIT Transf. from Ana Elkins Encounters Encounter Location Date Provider Diagnosis [address] [place] [address] 2023 Raghav Walton Plan Of Treatment No Information Progress Notes * LEILA HASSAN LDOB:1990 (34 yo F)Acc No.[id number]:08/22/2024 Behavioral Health Patient: LEILA BARBOUR :?ALEX SmithPDOB:1990???Age:33 Y???Sex: FemaleDate:08/22/2024hone:[phone]:[address] [place], [place] [id number]:Ilda Lloyd Subjective: * Chief Complaints: * T ransf. from Ana Elkins Billing Information: * Procedure Codes: * Electronic signature of VANNESA Smith on 09/09/2025 at 10:08 AM ESTSign off status: Pending * Provider: VANNESA Ornelas Date: 1 10/23/2023 Generated for Printing/Faxing/eTransmitting on:?09/09/2025 10:08 AM EST
--- OUTSIDE RECORDS SUMMARY | 2024-08-23 05:00 | XMS_ITS ---
Author Organization [facility] es Address [address] [facility] [place] [address] Care Team Providers Care Tester Operator Helper Name Role Phone Ilda Lloyd Primary Care Provider Raghav Walton Unavailable [phone] Jennifer Shaikh Unavailable [phone] REASON FOR VISIT RS FROM 08/03 Encounters Encounter Location Date Provider Diagnosis [place] [place] [address] 08/23/2024 Jennifer Shaikh Plan Of Treatment No Information Progress Notes * LEILA HASSAN LDOB:1990 (34 yo F)Acc No.[id number]:08/23/2024 F/U - Patient Patient: KARIN BARBOURICA Isreal :?Jennifer DuartemDOB:1990???Age:33 Y???Sex: FemaleDate:4Phone:[phone]:[address] [place] [address]Pcp:Ilda Lloyd Subjective: * Chief Complaints: * R S FROM 08/03 Billing Information: * Procedure Codes: Care Plan Details* * Electronic signature of FRANCISCO JAVIER Romero on 09/09/2025 at 10:08 AM ESTSign off status: Pending * Provider: Crystal Shaikh Date: 1 10/24/2023 Generated for Printing/Faxing/eTransmitting on:?09/09/2025 10:08 AM EST
--- OUTSIDE RECORDS SUMMARY | 2024-09-21 07:45 | XMS_ITS ---
Author Organization [facility] es Address [address] [facility] [place] [address] Care Team Providers Care Lung Gun Operator Name Role Phone Ilda Lloyd Primary Care Provider Raghav Walton Unavailable [phone] REASON FOR VISIT RS FROM 08/22 TRANSFER FROM Jacqueline MILLIGAN Encounters Encounter Location Date Provider Diagnosis [place] [address] [place] [address] 2024 Raghav Walton Plan Of Treatment No Information Progress Notes * LEILA HASSAN LDOB:1990 (34 yo F)Acc No.[id number]:09/21/2024 Behavioral Health Patient: KARIN BARBOURDION Bach :?ALEX SmithPDOB:1990???Age:33 Y???Sex: FemaleDate:09/21/2024Phone:[phone]:[address] [place], [place] [id number]:Ilda Lloyd Subjective: * Chief Complaints: * R S FROM 08/22 TRANSFER FROM Jacqueline MILLIGAN Billing Information: * Procedure Codes: * Electronic signature of VANNESA Smith on 09/09/2025 at 10:08 AM ESTSign off status: Pending * Provider: VANNESA Ornelas Date: 0 09/21/2024 Generated for Printing/Faxing/eTransmitting on:?09/09/2025 10:08 AM EST
--- OUTSIDE RECORDS SUMMARY | 2024-11-08 05:00 | XMS_ITS ---
Author Organization [facility] es Address [address] [facility] [place] [address] Care Team Providers Care Wool Buyer Name Role Phone Ilda Lloyd Primary Care Provider Raghav Walton Unavailable [phone] Jennifer Shaikh Unavailable [phone] Encounters Encounter Location Date Provider Diagnosis [address] [place] [address] 11/08/2024 Jennifer Shaikh Plan Of Treatment No Information Progress Notes * LEILA HASSAN LDOB:1990 (34 yo F)Acc No.[id number]:11/08/2024 F/U - Patient Patient: RUTH BARBOURURSULA Bach :?Jennifer GeraldmDOB:1990???Age:33 Y???Sex: FemaleDate:11/08/2024Phone:[phone]:[address] [place], [place] [id number]:Ilda Lloyd Billing Information: * Procedure Codes: Care Plan Details* * Electronic signature of FRANCISCO JAVIER Romero on 09/09/2025 at 10:08 AM ESTSign off status: Pending * Provider: Crystal Shaikh Date: 0 11/08/2024 Generated for Printing/Faxing/eTransmitting on:?09/09/2025 10:08 AM EST
--- OUTSIDE RECORDS SUMMARY | 2024-11-22 04:30 | XMS_ITS ---
Author Organization [facility] es Address [address] [facility] [place] [address] Care Team Providers Care Carpenter Supervisor Name Role Phone Ilda Lloyd Primary Care Provider [phone] Raghav Walton Unavailable [phone] REASON FOR VISIT 1 month f/u Encounters Encounter Location Date Provider Diagnosis [place] [address] [place] [address] 2024 Raghav Walton Plan Of Treatment No Information Progress Notes * LEILA HASSAN LDOB:1990 (34 yo F)Acc No.[id number]:11/22/2024 Behavioral Health Patient: KARIN BARBOURDION Bach :?ALEX SmithPDOB:1990???Age:33 Y???Sex: FemaleDate:11/22/2024Phone:[phone]:[address] [place], [place] [address]Pcp:Ilda Lloyd Subjective: * Chief Complaints: * 1 month f/u Billing Information: * Procedure Codes: * Electronic signature of VANNESA Smtih on 09/09/2025 at 10:07 AM ESTSign off status: Pending * Provider: VANNESA Ornelas Date: 0 11/22/2024 Generated for Printing/Faxing/eTransmitting on:?09/09/2025 10:07 AM EST
[2025-09-09 09:06] VITALS: BP 165/92; PULSE 63; TEMP 36.9; O2SAT 99; BMI 33.7
[2025-09-09] MEDS: DEXAMETHASONE 4 MG TABLET 10 MG PO (09:28)
[2025-09-09 09:47] LABS: SARS-CoV-2 Ag NEGATIVE (NEGATIVE)
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
--- OUTSIDE RECORDS SUMMARY | 2025-09-09 10:08 | XMS_ITS | Clinical Summary ---
Author Organization [facility] Address [address], [address] [place] [address] Care Team Providers Care Crm Coordinator Name Role Phone Jennie Durand DO Primary Care Provider [phone] Allergies Active AllergyReactionsCriticalityNoted NzywPnyydubmOmnmqcuzblfk17/13/2023 Qouewzvnj86/02/2021oconut (Cocos Nucifera)PjgtmacGpcgee79/04/2020Coconut Flavoring Agent (Non-Screening)ZulvkbdivwmDfsk87/26/2020 coconut Medications MedicationSigDispense QuantityRefillsLast FilledStart DateEnd DateStatus varenicline (CHANTIX) 1 MG tablet as gezdfi0408/27/2021ctive traZODone (DESYREL) 100 MG tablet as lqpokf4010/29/2022ctive Multiple Vitamins-Minerals (MULTI-DAY PLUS MINERALS PO) Take [...] Mon Post-op 04-24-21 222 y Completed at commerce- will request 6 Mon Post-op 07-24-21 204 [...] (BMI 30-39.9)07/24/2021 Status post gastric bypass for xphpuvq2701/07/2021Vitamin D lxgthkuzxf74/14/2020 History of nicotine use05/23/2020Gastroesophageal reflux disease without dsrkpopknqx53/09/2020Borderline personality srjhfryt45/09/2020Flat feet 05/23/2020Bilateral foot pain05/23/2020Anxiety and gkmtemlayl08/02/2020Bipolar disease, dvyelus8205/16/20203003Iulnwiiwn35/02/2020 Resolved Problems ProblemNoted DateDiagnosed DateResolved VnpfNlasxasnnjk48/08/202309/ Omental gezpiapysx51/20/202109/Intra-abdominal oawvach5701/30/2021 05/27/20233035Hoxzqmoqvim30/15/202106/Morbid obesity with BMI of 40.0-44.9, adultGastroesophageal reflux disease with esophagitis without ocqrsavcdd06/13/2023Hiatal xgdeld9607/24/2021 Family History Medical HistoryRelationNameCommentsCancerFatherOtherFatherALSCancerMotherstage 4 pancreaticDiabetesMotherHigh Blood [...] IP Abuse ScreeningAnswerDate RecordedRead-Only, Retired: Physical Abuse Pdipgr2509/18/2023ead-Only, Retired: Verbal GxlsgRvfrzi88/05/2024ead-Only, Retired: Emotional hvmbhSpwosk30/05/2024ead-Only, Retired: Financial Abuse Wqbdvh9709/18/2023ead-Only, Retired: Sexual knaqxTbcfyv21/05/2024Comments NoSex and Gender InformationValueDate RecordedSex Assigned at BirthFemale 11/29/2024 9:44 AM EDTLegal LwyZccorh50/30/2020 11:40 AM EDTGender IdentityNot on fileSexual OrientationNot on file Last Filed Vital Signs Vital SignReadingTime TakenCommentsBlood Ovbzlqhu631/8205 1:40 PM EDT Zzbgh6293/07/2025 1:40 PM ZYLYgzsuedsgyw95.2 ??C (97.1 ??F)09/18/2023 8:24 AM ESTRespiratory Nyde845810/13/2023 1:00 PM ESTOxygen Vtvhuzdpgv24%01/18/2025 1:40 PM EDTInhaled Oxygen Concentration--Vocopi91.1 kg (203 lb)01/18/2025 1:40 PM EDT Visvbm098.2 cm (5' 7 )01/18/2025 1:40 PM EDTBody Mass Index31.7901/18/2025 1:40 PM EDT Plan of Treatment Health MaintenanceDue DateLast DoneCommentsDepression Hjghypylty93/05/2001 Varicella vaccine (1 of 2 - 13+ 2-dose series)2001HIV yyzljh9612/18/2003 Hepatitis C larjlq4012/17/2006DTaP/Tdap/Td vaccine (1 - Tdap)12/18/2007Hepatitis B vaccine (1 of 3 - 19+ 3-dose series)12/18/2007Pneumococcal 0-49 years Vaccine (1 of 2 - PCV)12/18/2007Pap smear2009Cervical cancer uuqzng0712/17/2018HPV (without or with Pap)2018Annual Wellness Visit (Medicare)12/01/2024Flu vaccine (#1)51COVID-19 Vaccine (3 - 2024- season)2025 04/29/2021, 1A1C test (Diabetic or Prediabetic)Lfypczwlfzzl72/29/2023, 03/19/2023, 07/18/2022, Additional history existsHPV vaccine (No [...] complete this topic Procedures Procedure NamePriorityDate/TimeAssociated DiagnosisCommentsHEMOGLOBIN B8KPhvmtbf 08/12/2023 7:45 AM EST Gastroesophageal reflux disease without esophagitis Anxiety and depression Status post gastric bypass for obesity Overweight (BMI 25.0-29.9) Low iron Vitamin D deficiency from Last 3 Months or Most Recently Relevant to Health Maintenance Results * Hemoglobin A1C (08/12/2023 7:45 AM EST)ComponentValueRef RangeTest Method Analysis TimePerformed AtPathologist SignatureHemoglobin A1C5.64.0 - 6.0 % 08/12/2023 7:45 AM ESTMERCY LABORATORIESEstimated Avg Imbyapc530if/dL 08/12/2023 7:45 AM ESTMERCY LABORATORIESComment: The ADA and AACC recommend providing the estimated average glucose result to permit better patient understanding of their HBA1c result. Specimen (Source)Anatomical Location / LateralityCollection Method / Volume Collection TimeReceived TimeBLOOD SPECIMEN / Iqcsvlh6708/12/2023 7:45 AM EST 08/12/2023 7:46 AM EST Narrative Authorizing ProviderResult TypeResult StatusSheri Isreal Chan GAS CONTROLLER - CNPCHEMISTRY ORDERABLESFinal ResultPerforming OrganizationAddressCity/State/ZIP CodePhone Number [facility] [address] [place], [place] [address] [phone] [facility] [address] [id number] [phone] from Last 3 Months or Most Recently Relevant to Health Maintenance Insurance on file Advance Directives * Full Code (Latest Code Status on File) Date ActivatedDate InactivatedComments01/31/2021 11:30 PM02/01/2021 12:23 PM * Full Code Date ActivatedDate InactivatedComments01/07/2021 12:20 PM01/08/2021 8:31 PM Care Teams Team MemberRelationshipSpecialtyStart DateEnd Date Jennie Durand DO [address] [place] [phone] PCP - [facility]Unity[facility]11/19/22
--- OUTSIDE RECORDS SUMMARY | 2025-09-09 10:08 | XMS_ITS | Clinical Summary ---
Author Organization [facility] Address [address] [place] [address] Care Team Providers Care Channel Rougher Name Role Phone Nilo Prado MD Unavailable Lisha Worthington METHANE GAS COLLECTION SYSTEM OPERATOR.HOOP PUNCH AND COILER OPERATOR HELPER Unavailable Allergies Active AllergyReactionsCriticalityNoted DateCommentsAripiprazoleMental Status Change,Other: See Comments,Jxwfglv78/06/8468EhgrulmivCfvrtbr43/02/2021Coconut BonuxyrjWeo27/09/2023 Medications MedicationSigDispense QuantityRefillsLast FilledStart DateEnd DateStatus cdojyhzgxedn-rjs-vint-FA-vit K (BARIATRIC MULTIVITAMINS) 45 mg iron- 800 [...] DateDiagnosed DateLeft breast mass03/08/2024Family history of pancreatic rwpria3703/08/2024Family history of cvwldd5403/08/2024History of eiwkpbjkbihz72/25/2024anic qluuupas13/25/2024History of substance abuse 01/31/2024 Overview (03/08/2024): Patient did have a recent relapse with alcohol over the holidays but is 17 days sober again today and back on vivitrol. She does have a history of significant psychiatric disease. I strongly suggested she follow closely with psychiatry in order to further help control the symptoms long-term. Borderline personality nnrptrwy33/22/2024hronic alcoholism in remission 01/04/2024yst of /30/2023ipolar affective disorder in remission 06/10/2023Idiopathic intracranial cwwkllvimqgp40/09/3074Lvbkbnuqkr81/09/2023Hx of gastric socnev8011/20/2022H/O foot ovqrjuw3311/20/2022nxiety disorder, xrnibweqomo54/20/2022History of nicotine use05/23/2020 Resolved Problems ProblemNoted DateDiagnosed DateResolved DatePlantar vaoamfybn20/25/2024 03/08/2024Obesity, Class III, BMI 40-49.9 (morbid obesity)/ Primary jblmnqnfoydw79/09/202306/oor growth, affecting management of mother, antepartum condition or gcipncyqcexs41 Encounters DateTypeDepartmentCare HswzPauwzcuhcpe39/02/2025Interfaced Data Kiln Pusher Management [address] [place] [address] Soren Lerma MD 08/03/2025Interfaced Data [employer] [address] [place] [address] Soren Lerma MD from Last 3 Months Immunizations ImmunizationAdministration DatesNext Duehepatitis B (HepB) vaccine, 3-dose series, age 0 yr - 19 yr (ENGERIX B-PEDS, RECOMBIVAX HB-PEDS)11/12/2000influenza (IIV4) vaccine, age 6 mo - 64 yr, quadrivalent, PF (AFLURIA, FLUARIX, FLULAVAL, FLUZONE)07/09/2020influenza (LAIV) vaccine, nasal, unspecified formulation 07/09/2020influenza vaccine, unspecified oblwogopldf43/26/2020measles mumps rubella (MMR) vaccine (M-M-R II, PRIORIX)11/12/2000 Family History Medical HistoryRelationCommentsAnxiety disorderBrother 2ALSFatherBlood Clots FatherCancerFatherbladderHeart AttackMaternal GrandfatherCervical CancerMaternal GrandmotherhysterectomyHeart diseaseMaternal GrandmotherRenal Cell Cancer Maternal GrandmotherCervical CancerMotherhysterectomyDiabetesMotherHypertension MotherPancreatic CancerMotherStrokeMothermini strokePancreatic CancerPaternal GrandfatherAutismSonRelationStatusCommentsBrother 1AliveBrother 2AliveFather DeceasedMaternal GrandfatherDeceasedMaternal GrandmotherAliveMotherDeceased Paternal GrandfatherDeceasedPaternal GrandmotherDeceasedSonAlive Social History Tobacco UseTypesPacks/DayYears UsedDateSmoking Tobacco: Every OpjVukifcuyat755 Smokeless Tobacco: Never Tobacco Cessation:Ready to Q uit: Not Asked; Counseling Given: Not Answered Alcohol UseStandard Drinks/WeekCommentsYes0 (1 standard drink = 0.6 oz pure alcohol)13 days sober- 07/04/2024HC UtilitiesAnswerDate RecordedIn the past 12 months has the [employer], [employer], or water [employer] threatened to shut off services in your home?No03/02/2024Social Connection and Isolation PanelAnswer Date RecordedIn a typical week, how many times do you talk on the phone with family, friends, or neighbors?More than three times a week03/02/2024How often do you get together with friends or relatives?Never03/02/2024How often do you attend temple or evangelical services?Never03/02/2024o you belong to any clubs or organizations such as temple groups, unions, fraternal or athletic groups, or school groups?No03/02/2024How often do you attend meetings of the clubs or organizations you belong to?Never03/02/2024re you , , , , never , or living with a partner?Wizabsj6103/02/2024UDIT-C AnswerDate RecordedQ1: How often do you have a drink containing alcohol?Patient pikxcwfq25/19/2024Q2: How many drinks containing alcohol do you have on a typical day when you are drinking?Patient rsexfliy28/19/2024Q3: How often do you have six or more drinks on one occasion?Never03/02/2024Overall Financial Resource Strain (CARDIA)AnswerDate RecordedHow hard is it for you to pay for the very basics like food, housing, medical care, and heating?Not very hard 03/02/2024HQ-2AnswerDate RecordedPHQ-2 ihrzi539Finval[facility] [place] of Occupational Health - Occupational Stress QuestionnaireAnswerDate RecordedDo you feel stress - tense, restless, nervous, or anxious, or unable to sleep at night because yourmind is troubled all the time - these days?Only a ulpipa4003/02/2024 Exercise Vital SignAnswerDate RecordedOn average, how many [...] RecordedNational Score (1-100), lower number is lower ndry173802/27/2023State Score (1-10), lower number is lower bxds5003Data from: https://www.neighborhoodatlas.[facility].edu/. Last address used for [address] [facility]3CommentsNoSex and Gender InformationValueDate RecordedSex Assigned at BkncrLbkyyw52/26/2022 6:05 PM EDT Legal OrvYxxopl67/02/2012 10:01 AM ESTGender LcdyexhuDjnymm71/02/2022 11:52 AM EDTSexual ZapmhivvpfuWlzrdxbf22/26/2022 6:05 PM EDT Last Filed Vital Signs Vital SignReadingTime TakenCommentsBlood Qmazjhda736/7207/25/2024 3:08 PM EST Eilai268707/25/2024 3:08 PM MNXIhifgahkufv12.6 ??C (97.9 ??F)08/31/2023 11:07 AM ESTRespiratory Tuvb516106/12/2010 7:00 AM EDTOxygen Etgrjqzesr473%07/25/2024 3:08 PM ESTInhaled Oxygen Concentration--Slgreg08.8 kg (184 lb 11.9 oz)07/25/2024 3:08 PM KHXZfsqbu029.2 cm (5' 7 )07/04/2024 11:01 AM EDTBody Mass Index28.94 07/04/2024 11:01 AM EDT Plan of Treatment Health MaintenanceDue DateLast DoneCommentsHepatitis B Vaccine (2 of 3 - 3-dose series)DTaP,Tdap,Td Vaccine (1 - Tdap)12/18/2007Pneumococcal Vaccine (1 of 2 - PCV)12/18/2007Cervical Cancer Mawpjxtkd59/05/2010HPV Vaccine (1 - 3-dose SCDM series)12/18/2015Medicare Advantage Annual Wellness Visit 09/14/2024Influenza Vaccine (#1)51, 07/09/2020, 07/09/2020 Covid-19 OdbycpxDunmniefkgsb35/16/2021, 04/08/2021HIV ScreeningCompleted 02/25/2024Hepatitis C SlhzfhkrmJfvnvwbsz82/13/2024 Medical Devices ImplantedTypeAreaManufacturerDevice IdentifierShelf Expiration DateModel / Serial / LotBreast Us Core Bx Clip Implanted:Qty: 1 on 07/11/2024 by Michelle [facility] FHCLeft: BreastBARD PERIPHERAL GFTKBATL45/28/2027/ / [id number]:Ribbon clip Procedures Procedure NamePriorityDate/TimeAssociated DiagnosisCommentsHIV 1/2 COMBO WITH REFLEX TO JFZHGDPQKWHZRSKLywhagx71/13/2024 7:51 AM EDT Routine health maintenance HEPATITIS C ANTIBODY IA WITH ALMGZFNFDBEBSppqrss42/13/2024 7:51 AM EDT Routine health maintenance from Last 3 Months or Most Recently Relevant to Health Maintenance Results * HIV 1/2 COMBO WITH REFLEX TO DIFFERENTIATION (02/25/2024 7:51 AM EDT)Component ValueRef RangeTest MethodAnalysis TimePerformed AtPathologist SignatureHIV 12 Combo (Ag/Ab)LjoqilqxwivWfkimqsxdky96/13/2024 5:32 PM EDTCTRI[facility] LABHIV-1/2 AB (Confirmatory)02/25/2024 5:32 PM EDTCTRIHEALTH [facility]ES[facility] LABComment:Test not indicated.HIV Htvxgarcdikgkk94/13/2024 5:32 PM EDT [facility] LABComment: No evidence of HIV-1 or HIV-2 infection. Should recent infection be suspected, repeat testing may be considered 2-3 weeks after this draw. [place] Rev. Code 3701.243(E): This information has been [...] StatusTrevokeshav Min DOLABORATORYFinal ResultPerforming OrganizationAddressCity/State/ZIP CodePhone Number [facility] [address] * HEPATITIS C ANTIBODY IA WITH CONFIRMATION (02/25/2024 7:51 AM EDT)Component ValueRef RangeTest MethodAnalysis TimePerformed AtPathologist SignatureHep C Antibody MYJxamejzsKkcnlmnv27/13/2024 6:42 PM EDTCTRIHEALTH [facility] LABComment:The result suggests no evidence of active infection with Hepatitis C virus. Should recent infectionbe suspected, repeat testing may be considered 4-6 weeks after this draw.Specimen (Source)Anatomical Location / Laterality Collection Method / VolumeCollection TimeReceived TimeBloodBLOOD SPECIMEN / UnknownVenipuncture / Obwfjcf0302/25/2024 7:51 AM EDT02/25/2024 7:51 AM EDT Narrative Authorizing ProviderResult TypeResult StatusTrevokeshav Min DOLABORATORYFinal ResultPerforming OrganizationAddressty/State/ZIP CodePhone Number [facility] [address] from Last 3 Months or Most Recently Relevant to Health Maintenance Insurance Care Teams Team MemberRelationshipSpecialtyStart DateEnd Nilo Prado MD [address] [place] [address] OycwaleqbHixcshnmkdagkmwd36/4/23 Lisha Worthington APRN.CNP [address] [place] [address] Care PartnerFamily Medicine12/16/24
--- OUTSIDE RECORDS SUMMARY | 2025-09-09 10:08 | XMS_ITS | Clinical Summary ---
Author Organization [facility] Address [address] [place] [address] Care Team Providers Care Accounting Associate Name Role Phone Camilo Yolande Lehman COMPUTER PROGRAMMER CHIEF Unavailable [phone] Pop Larsen DO Unavailable [phone] Unallocated, Noms Provider MD Primary Care Provi andres Allergies Active AllergyReactionsCriticalityNoted QwzoFfnwoyajUntiyjwrelsm10/19/2024 AriyxzuriCbnmmwhgaetySez93/08/2025Coconut (Cocos Nucifera)01/31/2024 Medications MedicationSigDispense QuantityRefillsLast FilledStart DateEnd [...] by mouth Daily06/06/2025tive Active Problems ProblemNoted DateDiagnosed XtgpZrrjfnjn79/01/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 added per OP CDI policy. Muscle weakness-zzsauvk5612/22/2024Sinus tarsi syndrome of right ankle12/22/2024 Tarsal tunnel /10/2025urrent vllwxe5508/08/2024 Overview (12/22/2024): Added secondary to documentation in Social History. Family history of ischemic heart hshxyhd1408/08/2024MI 29.0-29.9,adult08/08/2024 Gcsxmfycswif83/25/2024Shortness of aafjwk6308/08/2024Family history of cancer 03/08/2024Family history of pancreatic votire7903/08/2024History of hysterectomy 03/08/2024Left breast mass03/08/20241603Whzqnmna22/19/1855Borngsnx00/19/2024Ulnar ogarrelwig73/19/2024Other chronic pain01/31/2024Headache, unspecified headache type01/31/2024 Overview (01/31/2024): Patient has significant headaches which started a couple of weeks ago and prompted this evaluation.She has recently resumed topiramate. I'm concerned that this may interfere with the quality of the lumbar puncture diagnostically. As such, I recommend she stop this until after the procedure. Zkexwxnghge00/19/2024 Overview (01/31/2024): Clinical exam finding mandating lumbar puncture as above. Also need to have ophthalmology evaluation. Visual uuebewzcpti36/19/2024 Overview (01/31/2024): See above. Tension type nnjavnwi61/19/2024 Overview (01/31/2024): Patient has had an increase [...] a recent relapse with alcohol over the Wor[place] holidays but is 17 days sober again today and back on vivitrol. She does have a history of significant psychiatric disease. I strongly suggested she follow closely with psychiatry in order to further help control the symptoms long-term. Tdqrzfkjimin95/19/2024 Overview (01/31/2024): It is my impression that [...] Plan: EMG of the bilateral lower extremities Wimricugrdu53/19/2024Chronic alcoholism in gjltcekdn53/22/2024yst of pancreas 3Bipolar affective disorder in vsxsijxys15/27/2023Low iron05/27/2023H/O foot witjjrs83/09/2023Primary xblljscuoszd26/09/2023Intestinal malabsorption 11/19/2022History of gastric ynafmz8101/07/2021Vitamin D /14/2020 Bilateral foot pain05/23/2020Borderline personality twetzlcx41/09/2020Flat feet 05/23/2020Gastroesophageal reflux disease without amkckhnbyya05/09/2020History of nicotine use05/23/2020Anxiety and bmsetixuad53/02/4801Hbagreysf64/02/2020Poor growth, affecting management of mother, antepartum condition or complication ([facility])07/03/2008cute odlptgeyvju96/20/2003Streptococcal sore okipck8612/01/2002Abdominal pain06/13/2002Acute suppurative otitis media without spontaneous rupture of ear drum06/13/2002Educational vuxvuriqmxwq13/30/2002 Azszrjm3906/13/2002Sprain of ankle12/06/2001 Encounters DateTypeDepartmentCare BsuoLgeubtkmjui26/20/2025 1:45 PM EDTOffice Visit [facility] [address] [place] [address] Sarah Franz MD IIH (idiopathic intracranial hypertension) (Primary Dx); Loss of part of visual field; Papilledema associated with increased intracranial nlziycyg08/20/2025amboo flowsheet [facility] [address] [place] [phone] Sarah Franz MD 07/03/20251838Cgtztl65/16/2025 11:30 AM EDTOffice Visit [facility] [address] [facility] [address] [place] [phone] Shaji Francis, Hematoma (Primary Dx); Pseudoangiomatous stromal hyperplasia of inopyw9506/29/20253385Fcoohf49/09/2025Travel 06/14/2025 2:45 PM EDTOffice Visit [facility] [address] [facility] [address] [place] [address] Shaji Francis H, DO Hematoma (Primary Dx); Pseudoangiomatous stromal hyperplasia of ctadhq2406/14/2025Travelfrom Last 3 Months Family History Medical HistoryRelationNameCommentsALSFatherDiabetesMotherAmyHyperlipidemia [...] InformationValueDate RecordedSex Assigned at BirthNot on fileLegal RooEbbrlu18/15/2023 6:39 PM EDTGender IdentityNot on fileSexual OrientationNot on file Last Filed Vital Signs Vital SignReadingTime TakenCommentsBlood Dnomswkh336/7010/ 11:08 AM EDT Ayesd5516 10:45 AM SIVUmhyajdfyab10.6 ??C (96.1 ??F)04/09/2025 10:45 AM EDTRespiratory Rate--Oxygen Fwhlxgaosy04%04/09/2025 10:45 AM EDTInhaled Oxygen Concentration--Ddondu75.5 kg (195 lb)06/29/2025 11:08 AM IEOFkqnqw596.2 cm (5' 7 )06/29/2025 11:08 AM EDTBody Mass Index30.5406/29/2025 11:08 AM EDT Plan of Treatment Health MaintenanceDue DateLast DoneCommentsMedicare Annual Wellness (AWV) 1988Pneumococcal Vaccine: Pediatrics (0 to 5 Years) and At-Risk Patients (6 to 64 Years) (1 of 2 - PCV)12/18/2007COVID-19 Vaccine (3 - season) /, 04/08/2021Influenza Vaccine (#1)/05/2020, 07/09/2020 Procedures Procedure NamePriorityDate/TimeAssociated DiagnosisCommentsOCT, OPTIC NERVE - OU - BOTH LZROSslwccy37/20/2025 2:44 PM EDT IIH (idiopathic intracranial hypertension) CARRIZALES VISUAL FIELD - OU - BOTH BOKOBagahrz05/20/2025 2:44 PM EDT IIH (idiopathic intracranial hypertension) [...] Reliability: good and adequate. Authorizing ProviderResult TypeResult StatusKerbalbina Franz MDSA[facility] TOMOGRAPHY Final Result * Carrizales Visual Field [...] normal observations. Authorizing ProviderResult TypeResult StatusSarah Franz MDSAINT JO[facility] VISUAL FIELD Final Result from Last 3 Months Insurance Care Teams Team MemberRelationshipSpecialtyStart DateEnd Date Unallocated, Noms Provider, [address] [place] [address] PCP - GeneralFamily Medicine04/13/25 Yolande Page, LEONOR [facility] [address] [facility] [address] [place] [phone] 09/21/24 Pop Larsen DO [address] [place] [address] Referring PhysicianNeurolog09/27/24
--- OUTSIDE RECORDS SUMMARY | 2025-09-09 10:08 | XMS_ITS | Clinical Summary ---
Author Organization [facility] Address [address] [place] [address] Phone Care Team Providers Care Inclusion Manager Name Role Phone Generic Provider, No Assigned Pcp MD Primary Car e Provider Unavailable Allergies Active AllergyReactionsCriticalityNoted AxuoHjsbsqhgOehsmucoluznGmqjf18/13/2023 DcuxynhgjMzunk71/02/4008TpqjhslSafddtabMgh88/10/2020Coconut FlavorAnaphylaxis High05/09/2020 coconut Coconut Oil, QrbthplvrcbfTcvuaqrPvwiib47/04/2020 Medications MedicationSigDispense QuantityRefillsLast FilledStart DateEnd DateStatus DULoxetine (Cymbalta) [address] capsule Take 90 mg by mouth.02/29/2020Active etzkjxzieidm-foj-dabc-FA-vit K (Bariatric Multivitamins) 45 mg iron- 800 [...] 7 days.06/04/2024ctive Active Problems ProblemNoted DateDiagnosed DateCurrent plyalq4208/08/2024Other chest pain 08/08/2024Family history of ischemic heart otsiera8708/08/2024MI 29.0-29.9,adult 08/08/2024Shortness of vnaikl511368Ftwnkjmhskcw53/25/2024ipolar affective disorder in /27/2023Low iron7465Kdvuqbsgql59/09/2023H/O foot fjokowy4111/20/2022Idiopathic intracranial jwyhpxusvtki13/09/2023rimary fpozfurfwngb60/09/2023Intestinal udbdtildtsjbo25/08/2023History of gastric xytson9501/07/2021Vitamin D byyeioowfr32/14/2020Bilateral foot pain05/23/2020 Borderline personality /09/2020Flat feet05/23/2020Gastroesophageal reflux disease without sqctiqdnxpi34/09/9019Qmhmfzbra07/02/2020Anxiety and gyjqxmnoms54/02/2020Bipolar disease, udtruuk0205/16/2020Poor growth, affecting management of mother, antepartum condition or mhcfqouzqxzu58/20/2008 Acute zrqiedrluol03/20/2003Streptococcal sore tbssjs2612/01/2002Abdominal pain 06/13/2002Acute suppurative otitis media without spontaneous rupture of ear drum 06/13/20028882Qhoqqxk67/30/2002Sprain of ankle12/06/2001 Immunizations ImmunizationAdministration DatesNext DueHepatitis B [...] alcohol)CommentsUnknownSex and Gender InformationValueDate RecordedSex Assigned at BuvcqFkwgjm81/29/2024 9:48 AM ESTLegal IuwOasoyh07/25/2022 2:23 PM ESTGender RolmkorxMjhzzd33/29/2024 9:48 AM ESTSexual OrientationChoose not to lzkxojjo40/29/2024 9:48 AM EST Last Filed Vital Signs Vital SignReadingTime TakenCommentsBlood Sddqnrqn070/7609/13/2024 9:40 AM EST Tjuox959208/08/2024 3:28 PM ESTTemperature--Respiratory Rate--Oxygen Saturation-- Inhaled Oxygen Concentration--Bgrzun38.3 kg (188 lb)09/13/2024 9:40 AM ESTHeight 170.2 cm (5' 7 )09/13/2024 9:40 AM ESTBody Mass Index29.441 9:40 AM EST Plan of Treatment Health MaintenanceDue DateLast DoneCommentsHIV Hnbiygtuh59/05/1989Lipid Panel 1988Medicare Annual Wellness Visit (AWV)1988Hepatitis B Vaccines (2 of 3 - 3-dose series)Hepatitis C Ujgewiixt61/05/2007 Pneumococcal Vaccine: Pediatrics and At-Risk Adult Patients (1 of 2 - PCV) 12/18/2007HPV/Wcytjv9312/17/2009DTaP/Tdap/Td Vaccines (1 - Tdap)2010HPV Vaccines (1 - 3-dose standard series)12/18/2015Cervical Cancer Screening 06/10/2016Pap Smear06/10/, 08/02/2012, 08/31/2009, Additional history existsCOVID-19 Vaccine (1 - 2024- season)2025Influenza Vaccine (#1)Diabetes Bgzzhkvlb42, 08/12/2023, 07/18/2022, Additional history existsZoster Vaccines (1 of 2)2038MMR QelegaatEisowlcbd34/01/2001HIB VaccinesAged OutNo longer eligible based on patient's [...] complete this topic Procedures Procedure NamePriorityDate/TimeAssociated DiagnosisCommentsCONVERTED METEOROLOGY INSTRUCTOR WZORMOUVSwvkcqb86/27/2013 12:00 AM EDT from Last 3 Months or Most Recently Relevant to Health Maintenance Results * CONVERTED METEOROLOGY INSTRUCTOR CYTOLOGY (06/10/2013 12:00 AM EDT)ComponentValueRef RangeTest MethodAnalysis [...] MAEGAN ARIAS ?06/15/13 Electronically Signed Out By [facility], Cytology/ By the signature on this [...] Source of Specimen A: Unknown Part Type [facility] Department of Pathology [address] COPATHCONVERTED FINAL DIAGNOSISSatisfactory for evaluation. Transformation [...] ? - Signed by: MAEGAN ARIAS ?06/15/13 [facility] COPATHCONVERTED CLINICAL DIAGNOSIS-HISTORY- PREVIOUS CASES ? [id number] [...] ??MAEGAN ARIAS ?- Rosa Conversion Report - [facility] COPATHCONVERTED FINAL REPORT PDF LINK TO COPY AND PASTE \copathshare\copath\PDF \[id number].pdfCONEMAU[facility] COPATHSpecimen (Source) Anatomical Location / LateralityCollection Method / VolumeCollection Time Received TimeUnrecognized Part Type 9:48 AM EDT Narrative Authorizing ProviderResult TypeResult StatusCopath ConversionLAB CYTOLOGY ORDERABLESFinal ResultPerforming OrganizationAddressCity/State/ZIP CodePhone Number [facility] COPATH [address] [place] [address] from Last 3 Months or Most Recently Relevant to Health Maintenance Insurance Care Teams Team MemberRelationshipSpecialtyStart DateEnd Date Generic Provider, No Assigned P[place], [place] [address] PCP - GeneralGeneral Practice11/03/24
--- OUTSIDE RECORDS SUMMARY | 2025-09-09 10:08 | XMS_ITS | Clinical Summary ---
Author Organization [facility] Address [address] [facility] [address] [place] [address] Care Team Providers Care Attorney Law Clerk Name Role Phone Unavailable Primary Care Provider Unavailabl e Source Comments The following information is NOT included in Care Everywhere downloads:Psychiatric notes, ECG results, Cardiac Rehab notes, Pulmonary Function notes, data from [employer] (includes but not limited toPregnancy data,audiograms, eye exams, pre-surgical evaluation notes, well-child exam data).[facility] Allergies Active AllergyReactionsCriticalityNoted DateCommentsNo Known Drug Allergies [...] g Active Active Problems ProblemNoted DateDiagnosed DateAcute okimmxtnhwn95/20/2003Streptococcal sore agwrsw4612/01/2002Acute suppurative otitis media without spontaneous rupture of ear drum06/13/20024294Eafizda92/30/2002Abdominal pain06/13/2002Educational oapooztbrkso41/30/2002Sprain of ankle12/06/2001 Immunizations ImmunizationAdministration DatesNext DueHep B (peds/adol, 3-dose) (CVX=08) 11/12/2000MMR, Dvftoqo-Rgjmm-Cqveput (CVX=03)11/12/2000 Family History Medical HistoryRelationNameCommentsGood healthBrotherGood healthFather HypertensionMaternal GrandfatherSeizure DisorderMaternal Grandfather?ETIOLOGY HypertensionMaternal GrandmotherHypertensionMotherLung DiseaseMotherCHRONIC BRONCHITISDiabetes MellitusPaternal GrandfatherNIDDM. Takes oral medication HypertensionPaternal GrandfatherSkin ConditionSisterEczemaRelationNameStatus CommentsBrotherFatherMaternal GrandfatherMaternal GrandmotherMotherPaternal GrandfatherSister Social History Tobacco UseTypesPacks/DayYears UsedDateSmoking Tobacco: Smoker, Current Status UnknownAlcohol UseStandard Drinks/WeekCommentsNot Asked0 (1 standard drink = 0.6 oz pure alcohol)Sexually ActiveBirth ControlPartnersCommentsNeverSubstance Use TypesUse/WeekCommentsNot AskedCommentsNoSex and Gender InformationValue Date RecordedSex Assigned at BirthNot on fileLegal HgiKdobyh18/04/2012 9:12 AM ESTGender IdentityNot on fileSexual OrientationNot on file Last Filed Vital Signs Vital SignReadingTime TakenCommentsBlood Uopkpnpb356/7502 4:44 PM EST Yhjww693511/01/2015 4:44 PM SSDDidxporpivf65.4 ??C (99.4 ??F)11/01/2015 4:44 PM ESTRespiratory Uexc750905/17/2013 5:14 PM EDTOxygen Govejzrtmh54%11/01/2015 4:44 PM ESTInhaled Oxygen Concentration--Ylvotw54.9 kg (149 lb 12.8 oz)12/01/2002 9:45 AM MNDIxwmyw546.2 cm (5' 7 )11/01/2015 4:44 PM ESTBody Mass Index-- Plan of Treatment Health MaintenanceDue DateLast DoneCommentsMammography (shared decision-making, age 35-39)1988Hepatitis B (HBV) Vaccine (2 of 3 - 3-dose series)12/10/2000 11/12/2000HIV Test12/18/2003Hepatitis C Utphrikn73/05/2007Tdap Plkwcsj0912/17/2006 Hepatitis A (HAV) Vaccine (optional start 19+ years)12/18/2007Pap Smear 2009HPV Vaccine (optional start 27-45 years)12/18/2015COVID-19 Vaccine ( - 2024- season)2025Influenza Vaccine (#1)2025Shingles (RZV) Vaccine (1 of 2)2038MammographyDiscontinuedPneumococcal Vaccine(s)Aged Out No longer eligible based on patient's age to complete this topic Insurance * Guarantor: Shazia Chou TypeRelation to PatientDate of BirthPhone Billing RlxwzqwTftvtjrbjyeckQzea88/05/[phone] [place] [address]
--- OUTSIDE RECORDS SUMMARY | 2025-09-09 10:08 | XMS_ITS | Clinical Summary ---
Author Organization [facility] Address [facility] [id number] [place] [address] Care Team Providers Care Correctional Program Officer Name Role Phone Ben [facility] Primary Care Pr ovider Allergies Active AllergyReactionsCriticalityNoted HiefUgefoktrVgsptliHttsqymz73/10/2020 Bupropion Hcl07/16/2021 Medications MedicationSigDispense QuantityRefillsLast FilledStart DateEnd [...] drink = 0.6 oz pure alcohol)rarePHQ-2AnswerDate RecordedTotal Ixlay80209/23/2019 ChildcareAnswerDate BkvcgnrsBtdifkkfhKbbiigj53/30/2020EmploymentAnswerDate WnyihntyHfytgknexpPgbrcrg87/30/2020Purpose - LifeAnswerDate RecordedPurpose and direction in tsijTckppjb95/11/2021CommentsNoSex and Gender Information ValueDate RecordedSex Assigned at BirthNot on fileLegal YigDtzwks51/30/2020 1:22 PM EDTGender IdentityNot on fileSexual OrientationNot on file Last Filed Vital Signs Vital SignReadingTime TakenCommentsBlood Wsmlunvl742/80109/15/2020 9:44 AM EDT Vevze174707/16/2021 9:44 AM UPBQooiseytyav53 ??C (96.8 ??F)07/27/2020 11:31 AM EST Respiratory Fcii767509/26/2019 12:38 PM ESTOxygen Esempesdyw27%07/27/2020 12:38 PM ESTInhaled Oxygen Concentration--Yctpqv60.7 kg (206 lb 9.6 oz)07/16/2021 9:44 AM ZDIUkdjmm259.2 cm (5' 7 )07/16/2021 9:44 AM EDTBody Mass Index32.36109/15/2020 9:44 AM EDT Plan of Treatment Health MaintenanceDue DateLast DoneCommentsDepression Csdwpwxxd63/05/2001Tobacco Kgzaqdvyx52/05/2001Adult BMI Pvzegyygv79/05/2007DTaP,Tdap and Td Vaccines (1 - Tdap)12/18/2007Pap Smear2009COVID-19 Vaccine (3 - season) 508/, 04/08/2021Influenza Aiwqgrf28/, 07/09/2020 Medical Devices ImplantedTypeAreaManufacturerDevice IdentifierShelf Expiration DateModel / Serial / LotAnch Sut 4.75mm 2 Healicoil - [id number] - [id number] Implanted:Qty: 1 on 07/27/2020 by Octavio Sims DPM at [facility] Medial: AnkleSmith & Hvbqjf81/23/[id number] / [id number] / [id number] Im 52mm 5.5mm 4 Hl Hi Rt - [id number] - [id number] Implanted:Qty: 1 on 07/27/2020 [facility]: FootPARAGON 28 [id number] / [id number] / NAPg Fx 3.5mm 18mm Thrd Phntm - [id number] - [id number] Implanted:Qty: 1 on 07/27/2020 by Octavio Sims DPM at [facility] ImplantRight: FootPARAGON 28 [id number] / [id number] / NAPg Fx 3.5mm 16mm Thrd Phntm - [id number] - [id number] Implanted:Qty: 1 on 07/27/2020 by Octavio Sims DPM at [facility] ImplantRight: FootPARAGON 28 [id number] / [id number] / NAPg Fx 3.5mm 12mm Antirotation - [id number] - [id number] Implanted:Qty: 1 on 07/27/2020 by Octavio Sims DPM at [facility] ImplantRight: FootPARAGON 28 [id number] / [id number] / [id number] Cellular Bone Matrix Implanted:Qty: 1 on 07/27/2020 by Octavio Sims DPM at [facility] Lateral: AnklePARAGON 28 [id number] / [id number] / [id number] 3-D Wedge Implanted:Qty: 1 on 07/27/2020 by Octavio Sims DPM at [facility] Lateral: AnklePARAGON 28 [id number] / [id number] / [id number] Insurance Care Teams Team MemberRelationshipSpecialtyStart DateEnd Date Him, [address] [address] PCP - Szktxqz93/27/21
--- OUTSIDE RECORDS SUMMARY | 2025-09-09 10:11 | XMS_ITS | CCD ---
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 Name Role Phone Jennie Durand Primary Care Provider [phone] LINDY COTE Attending Unavailable PROVIDER, UNKNOWN Admitting Unavailable PATIENT, SELF Referring Unavailable Jennie Durand Primary Care Provider Jennie Durand DO Primary Care Provider JENNIE DURAND Primary Care Unavailable Jennie Durand DO Primary Care Provider Unavailable Primary Care Provider UnavailAimee Renee Primary Care Physician Unavailable Primary Care Provider UnavailDO Jennie Pichrado Primary Care Provider MD Sangeetha Peña Admit Provider Lindy Hdz Other Provider Unavailable DO Krystal Romo Other Provider MD Carolyne Schilling Other Provider DO Jamie Larsen Other Provider DIANNE Niño-CHRIS Kevin Other Provider DO Kenrick Lee Other Provider CEDRIC Zaragoza Other Provider ASTON Smith Other Provider MD Lizzeth Malave Attending Provider [phone] DO Jamie Larsen Referring Provider DIANNE Niño-CHRIS Kevin Attending Provider Nakia Mcqueen Primary Care Physician [phone] DR CAROLYNE RALPH Consulting Unavailable MISC, DR [...] e Nakia Mcqueen Primary Care Physician [phone] Jennie Durand Primary Care Physician [phone] Durand, DO Jennie D Primary Care Provider [...] Durand DO, Jennie D Primary Care Provider [phone] GAMALIEL VICKERS Referring Unavailable DURAND, JENNIE D Primary Care Unavailable JOSUEMARII Referring Unavailable DURAND, JENNIE D Primary Care Unavailable MARII JOSUE Referring Unavailable DURAND, JENNIE D Primary Care Unavailable Durand, DO Jennie D Primary Care Provider MD Marii Christiansen Emergency Provider Tupa, DO Jose Maria Blue Emergency Provider CEDRIC Javed Emergency Provider [phone] Eve BHAKTA, Imad Unavailable Elia Baires DO Primary Care Provider Alexis Shukla Attending Unavailable Bakari Chester Attending Unavailable REFERRAL, SELF Referring Unavailable Otto Larsen Attending Unavaila ble Durand, Jennie D Admitting Unavailable Durand, Jennie D Referring Unavailable Durand, Jennie D Attending Unavailable GIL, ORAL SURGERY PHYSICIAN GANESH Bach Attending Unavailable GIL, ORAL SURGERY PHYSICIAN GANESH Bach Admitting Unavailable Otto Larsen Attending UnavailAlexis Bergman Attending Unavailable Tevin Carson DO Primary Care Provider [phone] Unavailable Primary Care Provider Unavailbehzad e Unavailable Primary Care Provider Unavailabl TIFFANIE Mckeon Primary Care Physician [facility] DO, Natacha Unavailable ALEAH HOWARD Referring Unavailable ESHA, KURT A Primary Care Physician Esha, Kurt A Unavailable NON STAFF Primary Care Provider Unavailabl e Safjosee Sailaja STEELE Emergency Provider ESHA, KURT A Attending Unavailable ESHA, KURT A Admitting Unavailable ESHA, KURT A Attending Unavailable TIFFANIE MARADIAGA Primary Care Unavailable ESHA, KURT A Attending Unavailable Corby Larsen DO Unavailable [phone] ESHA, KURT A Attending Unavailable ESHA, KURT [...] Attending Provider ALEAH HOWARD Attending Unavailable Ander [employer] [facility], [facility] Unavailable MARII RICK Admitting Unavailable MARII RICK [...] Daniels Consulting Unavailable [place], Fernandez Consulting Unavailable [place], Jak W Referring Unavailable [place], Jak W Attending Unavailable [place], Jak W Admitting Unavailable Babar Mayers Attending [...] D Attending Unavailable BERNARD, MOLLY Referring Unavailable [place], Jak W Attending Unavailable Esha ORAL SURGERY PHYSICIAN, Kurt A Unavailable [phone] Corby Larsen DO Unavailable Unallocated , [place] Provider Primary Care [facility] Lindy Keen APRN Primary Care Provider Efrem Victor MD Attending Provider [phone] Aaliyah Francis DO Attending Provider [phone] Ladarius SNOWDEN Jennie Jeni Primary Care Provider [phone] Lindy Keen APRN Primary Care Provider Efrem Victor MD Attending Provider [phone] Esha GALVEZ, Kurt Lehman Unavailable Suzie SNOWDEN Christopher Unavailable Osmani STEELE Lindy Primary Care Provider Efrem Victor MD Attending Provider [phone] Alexis Helm MD Emergency Provider [phone] LINDA ELISEDION Bach Attending Unavailable ITZKOWITZ, AALIYAH H Attending Unavailable MOLLY GREGORIO Referring Unavailable ITZKOWITZ, AALIYAH H Attending Unavailable ITZKOWITZ, AALIYAH H Attending Unavailable ITZKOJOSETZ, AALIYAH H Attending Unavailable SARAH BUCKLEY Attending Unavailable CORBY LARSEN Attending Unavailable CORBY LARSEN Attending Unavailable Itzkowitz, Aaliyah Attending Unavailable Itzkowitz, Aaliyah Admitting Unavailable DurandJennie badillo Primary Care Unavailable Itzkowitz, Aaliyah Admitting Unavailable [...] Unavailable Corby Larsen DO Attending Provider [phone] NONE, XXXX Referring Unavailable [place], Jak W Admitting Unavailable [place], Jak W Attending Unavailable Babar Mayers Attending Unavailable Babar Mayers Referring Unavailable BrewsterSami burrows Attending Unavailable BERNARD, MOLLY Referring Unavailable [place], Jak W Attending Unavailable [place], Jak W Referring Unavailable [place], Jak W Admitting Unavailable LEONOR FREIRE Admitting Unavailab LEONOR Kemp Attending Unavailab le [place] MillsJak W Attending Unavailable NONE, XXXX Referring Unavailable Jennie Durand Referring Unavailable Babar Mayers Admitting Unavailable Babar Mayers Attending Unavailable Nata Jak W Attending Unavailable NONE, XXXX Referring Unavailable Allergies Allergy ClassificationReported Allergen(s)Allergy TypeDate of OnsetReaction(s) Facilitycoconut allergenic extract (7 sources)coconut allergenic extractDrug Bzgoepu82-38-7062FugifbrTelvt Health (20 sources)coconut allergenic extract; Translations: [Coconut Oil]Drug Allergy 07-04-3467[place]wmduopIwfchM[place]field, [place] (19 sources)Coconut Flavor; Translations: [COCONUT FLAVOR]Propensity to adverse reactions to qxng10-92-5994YebjfrqfgcwRkucp Health- [place], [place] (1 source)SOAP; Translations: [SOAP]Propensity to adverse reactions to drug (disorder)84-78-6274Llf [facility] (1 source)Pencils; Translations: [Unknown]Propensity to adverse reactions (disorder)44-74-0370Deb [facility] (20 sources)Coconut extract; Translations: [coconut]Drug Ggpaqwu86-32-1953 [facility] (20 sources)ARIPiprazole lauroxil; Translations: [aripiprazole]Drug Allergy [facility] (20 sources)ARIPiprazole; Translations: [aripiprazole]Drug Jdnccyi14-64-9631 Mental Status Change, Other: See Comments, Unknown, [facility] HospitalComment [facility]:Pt states it makes her suicidal. (1 source)ARIPiprazoleDrug Kvtbgez03-75-3070UpuSum[facility] (20 sources)busPIRone; Translations: [Buspirone]Drug AllergySelect [facility] (20 sources)buPROPion; Translations: [BUPROPION]Drug Jfssnyq35-80-1067QsxiwvpMountain States Health Alliance (20 sources)busPIRone; Translations: [buspirone]Drug Xqjkaqp44-81-1731 [facility] HealthComment on above: rapid heart rate (4 sources)Coconut Oil, Hydrogenated; Translations: [COCONUT OIL, HYDROGENATED] Propensity to adverse pmtdfaxbv01-83-4869MnlpfrqFssuylhkdiProMedica Memorial Hospital Work Phone: (16 sources)Coconut extractDrug Txmtmbm85-67-1055RDQX Healthcare Medications Current Medications MedicationDrug Class(es)DatesSig (Normalized)Sig (Original)acetaminophen 325 mg oral capsule (20 sources)Start: 06-14-2025 End: 78-67-1822uivu 1 capsule by mouth every six hours for painacetaminophen (Tylenol) 325 MG capsule Indications: Hematoma Take 1 capsule (325 mg) by mouth every6 (six) hours if needed for mild pain or moderate pain for up to 8 days 30 capsule 06/14/2025 06/22/2025 ActiveStart: 52-04-2211jnau 325 mg by mouth every four hours as needed for painTylenol 325 mg, Oral, q4hr, PRN as needed for pain, Refills(s) 0, Pain Start Date: 04/18/16 Status: Ordered Repeat number: 1 End: 91-92-6374tuou 2 tablets by mouth every six hours as needed for pain acetaminophen (TYLENOL) 500 MG tablet Take 1,000 mg by mouth every 6 hours as needed for Pain As needed 0 01/07/2021 Discontinued (LIST CLEANUP)acetaminophen 300 mg / butalbital 50 mg / caffeine 40 mg oral capsule (7 sources)Barbiturate, Central Nervous System Stimulant, MethylxanthineStart: 04-49-9909eidj 1 capsule by mouth every four hours for headache APAP/butalbital/caffeine 300 mg-50 mg-40 mg oral capsule 1 cap(s), Oral, q4hr for headache, 12 cap(s), Refill(s) 0, [facility]/pharmacy #[id number], 170, cm, 08/22/22 10:41:00 EST, Height/Length Dosing, 85, kg, 08/22/22 10:41:00 EST, Weight Dosing Start Date: 08/22/22 Status: OrderedStart: 24-03-2496uwya 1 capsule by mouth every four hours for headacheAPAP/butalbital/caffeine 300 mg-50 mg-40 mg oral capsule 1 cap(s), Oral, q4hr for headache, 12 cap(s), Refill(s) 0, [id number], 162, cm, 08/08/22 9:11:00 EST, Height/Length Dosing, 83.1, kg, 08/08/22 9:11:00 EST, Weight Dosing Start Date: 08/08/22 Status: Orderedacetaminophen 325 mg / oxyCODONE hydrochloride 5 mg oral tablet (7 sources)Opioid AgonistStart: 12-05-2022 End: 61-06-5535gvxaaljeufsop-oxycodone 325 mg-5 mg Tab 1 tab(s), Oral, q6hr for pain for 2 day(s), 7 tab(s), Refill(s) 0, [id number], 170, cm, 11/21/22 10:37:00 EST, Height/Length Dosing, 84, kg, 11/21/22 10:37:00 EST, Weight Dosing Start Date: 12/05/22 Stop Date: 12/07/22 Status: OrderedStart: 02-01-2021 End: 39-35-6289jdvTBKLKY-acetaminophen (PERCOCET) 5-325 MG per tablet Indications: Omental infarction (HCC) , Surgery, elective Take 1 tablet by mouth every 6 hours as needed for Pain for up to 5 days. Intended supply: 7 days. Take lowest dose possible to manage pain 20 tablet 0 02/01/2021 02/06/2021 Start: 39-77-7594qriw 1 tablet by mouth every four hours as needed for pain1 tablet, Oral, EVERY 4 HOURS PRN, Pain Severe (7-10), Starting on Thu01/30/21 at 2157 Maximum doseof acetaminophen is 4000 mg from all sources in 24 hours.Start: 01-08-2021 End: 55-66-3501idzRNDKFE-acetaminophen (PERCOCET) 5-325 MG per tablet Indications: Post-op pain Take 1 tablet by mouth every 6 hours as needed for Pain for up to 7 days. Intended supply: 7 days. Take lowest dose possible to manage pain 28 tablet 0 01/08/2021 01/15/2021 ActiveStart: 96-66-0713jirZRSDQH- acetaminophen (PERCOCET) 5-325 MG per tablet 1 tabletStart: 09-28-2020 End: 62-27-9766ndkOJAFWU-acetaminophen (PERCOCET) 5-325 MG per tablet 1 tablet acetaZOLAMIDE 125 mg oral tablet (20 sources)Carbonic Anhydrase InhibitorStart: 88-35-6784dmyh 1 tablet by mouth twice dailyAcetazolamide 125 mg tablet Active 125 MG PO Twice daily 60 July 12, 2025 12:00am Complies with drug therapyStart: 07-07-2023 End: 84-74-1352tvkb 1 tablet by mouth twice daily as neededAcetazolamide 250 mg tablet Discontinued 250 MG PO Twice daily as needed for intracranial pressure D ec2022 1:00am December 31, 2023 11:59amStart: 11-20-2022 End: 14-64-6960yyye 1 capsule by mouth twice dailyAcetazolamide 500 mg capsule, extended release Discontinued 500 MG PO Twice daily July 03, 2023 12:00am August 15, 2023 12:41pmComment on above:Take 1 capsule by mouth twice daily. Start from 500mg daily, increase to twice a day in a weekalbuterol 0.833 mg/ml / ipratropium bromide 0.167 mg/ml inhalation solution (1 source)Anticholinergic, beta2-Adrenergic AgonistStart: 20-32-1512wublbarnfkh- albuterol (DUONEB) nebulizer solution 1 ampuleamoxicillin 875 mg / clavulanate 125 mg oral tablet (5 sources)Penicillin-class AntibacterialStart: 04-09-2025 End: 30-16-7683qnuh 1 tablet by mouth in the morningamoxicillin-clavulanate (Augmentin) 875-125 MG tablet Indications: Pharyngitis, unspecified etiology , Acute pharyngitis, unspecified etiology Take 1 tablet (875 mg) by mouth in the morning and 1 tablet (875 mg) before bedtime. Do all this for 10 days. 20 tablet 04/09/2025 04/19/2025 ActiveStart: 02-01-2021 End: 09-44-9573yxsj 1 tablet by mouth twice dailyamoxicillin-clavulanate (AUGMENTIN) 875-125 MG per tablet Take 1 tablet by mouth 2 times daily for 10 days 20 tablet 0 02/01/2021 02/11/2021 ActiveAmphetamine / Dextroamphetamine (1 source)Central Nervous System StimulantStart: 46-41-4939Alhwbkpa 5 mg oral tablet 2.5 mg, 0.5 tab(s), Oral, Refill(s) 0 Start Date: 07/01/21 Status: Orderedbaclofen 5 mg oral tablet (3 sources)gamma-Aminobutyric Acid-ergic AgonistStart: 03-03-2025 End: 60-08-1531kgob 1 tablet by mouth three times daily as needed for pain baclofen 5 mg oral tablet 5 mg = 1 tab(s), Oral, TID, PRN Pain, X 30 day(s), # 90 tab(s), Refills(s) 0, Pharmacy: [facility]/pharmacy #[id number], 170, cm, 03/03/25 7:35:00 EDT, Height/Length Dosing, 90.4, kg, 02/17/25 18:58:00 EDT, Weight Dosing Start Date: 03/03/25 Stop Date: 04/02/25 Status: Ordered Quantity: 90.0 Unit: tab(s) Repeat number: 1brompheniramine maleate 0.4 mg/ml / dextromethorphan hydrobromide 2 mg/ml / pseudoephedrine hydrochloride 6 mg/ml oral solution (3 sources)alpha-Adrenergic Agonist, Uncompetitive U-layuou-Q-aspartate Receptor Antagonist, Sigma-1 AgonistStart: 06-52-3665ymqs 10 mL by mouth four times daily Bromfed DM oral syrup 10 mL, Oral, QID for cold symptoms, 200 mL, Refill(s) 0, [facility]/pharmacy #[id number], 170, cm, 02/17/25 18:58:00 EDT, Height/Length Dosing, 90.4, kg, 02/17/25 18:58:00 EDT, Weight DosingStart Date: 02/17/25 Status: Ordered Quantity: 200.0 Unit: mL Repeat number: 1calcium chloride 0.0014 meq/ml / potassium chloride 0.004 meq/ml / sodium chloride 0.103 meq/ml / sodium lactate 0.028 meq/ml injectable solution (4 sources)Start: 66-77-4978rclhykxe ringers IV soln infusionStart: 01-07-2021 End: 04-83-4406pvtsigee ringers infusionStart: 47-80-9139gbwmfesl ringers infusioncalcium citrate 950 mg oral tablet (20 sources)Start: 61-92-2603licj 1 mg by mouth twice dailycalcium (as calcium citrate) 200 mg oral tablet mg tab(s), Oral, BID, Refills(s) 0 Start Date: 07/01 Status: Ordereddexamethasone 0.1 mg/ml oral solution (1 source)CorticosteroidStart: 02-12-2022 End: 03-27-7639etvFZZJCaktpz (DECADRON) 0.5 mg/5 mL solution Indications: Irritation [...] cartridge (2 sources)Histamine-1 Receptor AntagonistStart: 09-18-2023 End: 66-52-9261gtbqtphbshWFNOV (BENADRYL) injection 12.5 mgStart: 09-28-2020 End: 75-47-4188oyidjarcqaWOGTG (BENADRYL) injection 12.5 mgDULoxetine 60 mg delayed release oral capsule (20 sources)Serotonin and Norepinephrine Reuptake InhibitorStart: 47-73-2764uxma 1 capsule by mouth once daily at bedtimeDuloxetine (Cymbalta) 60 mg capsule,delayed release(DR/EC) Active 60 MG PO Daily at bedtime June 05, 2025 12:14pm Complies with drug therapyStart: 02-21-2023 End: 54-70-8206jpuk 1 capsule by mouth once daily at bedtimeDuloxetine 30 mg capsule,delayed release(DR/EC) Discontinued 30 MG PO Daily at bedtime August 15, 2023 1:00am December 31, 2023 11:59amStart: 07-20-2020 End: 60-57-0829Fztacupzld 30 mg Capsule,Delayed Release(Dr/Ec) Discontinued 30 MG PO Daily at bedtime 30 30 0 July 20, 2020 1:00am August 19, 2022 8:39am Take with 60mg tablet for total of 90mgStart: 58-32-4950LLFjtdhgzh (Cymbalta) [address] capsule Take 90 mg by mouth. 02/29/2020 ActiveStart: 20-58-5122Ypknwoom 60 mg, Oral, BID, per dr chaparro, Depression Start Date: 02/02/19 Status: Ordered Repeat number: 1Start: 14-23-8491Ehltnlvu 60 mg, Oral, BID, per dr chaparro, Depression Start Date: 02/02/19 Status: OrderedStart: 29-90-4082Qcdbvjfe 90 mg, Oral, Daily, 30mg in AM 60mg at night, Depression Start Date: 02/02/19 Status: OrderedStart: 01-08-2019 End: 72-98-2517nqzv 1 capsule by mouth twice dailyDuloxetine (Cymbalta) 60 mg Capsule,Delayed Release(Dr/Ec) Discontinued 60 MG PO Twice daily January 08, 2019 12:00am June 05, 2025 12:22pmStart: 01-08-2019 End: 14-70-6103ssvq 1 capsule by mouth once daily at bedtimeDuloxetine (Cymbalta) 60 mg Capsule,Delayed Release(Dr/Ec) Active 60 MG PO Daily at bedtime January 08, 2019 12:00amtake 1 capsule by mouth every eight hoursCymbalta 30 MG 1 capsule Orally three times a day ActiveCymbalta ActiveComment on above:Take 60 mg by mouth once daily.0.4 ml enoxaparin sodium 100 mg/ml prefilled syringe (1 source)Low Molecular Weight HeparinStart: 18-91-5928qxvngo 1 dose by subcutaneous injection twice daily40 mg, Subcutaneous, EVERY 12 HOURS SCHEDULED (2 times per day), [place]01/[place] [address] ml famotidine 10 mg/ml injection (1 source)Histamine-2 Receptor AntagonistStart: 66-08-6372asyfijuckh (PEPCID) injection 20 mgferrous sulfate 325 mg oral tablet (20 sources)Start: 84-80-2317ttft 1 tablet by mouth once dailyFerrous Sulfate 325 mg (65 mg iron) tablet Active 65 MG PO Daily May 16, 2025 12:00am Complies with drug therapyStart: 79-12-7189opaz 1 tablet by mouth once daily ferrous sulfate 325 mg Tab TAKE 1 TABLET BY MOUTH EVERY DAY FOR 30 DAYS Start Date: 09/15/24 Status: Ordered Repeat number: 1Start: 06-22-2008 End: 20-60-3642wqmlyce sulfate(IRON 325 MG (65 MG IRON) TAB)Ferrous Sulfate (IRON PO) Take by mouth Active1 ml heparin sodium, porcine 5000 unt/ml prefilled syringe (2 sources)Unfractionated Heparin, Anti-coagulantStart: 01-07-2021 End: 75-04-2521vraofmh (porcine) injection 5,000 Units1 ml HYDROmorphone hydrochloride 1 mg/ml cartridge (5 sources)Opioid AgonistStart: 97-26-3626YDGXNzehjlryb (DILAUDID) injection 0.5 mgStart: 21-45-2602AYULIjlnjdbak (DILAUDID) injection 1 mgStart: 09-28-2020 HYDROmorphone (DILAUDID) injection 0.25 mgStart: 30-66-0769LYZKEpirackxt (DILAUDID) injection 0.5 mghydrOXYzine hydrochloride 50 mg oral tablet (17 sources)AntihistamineStart: 86-22-3186wmhgXMMzjck hydrochloride 50 mg oral tablet Refills(s) 0 Start Date: 04/21/22 Status: OrderedStart: 01-08-2019 End: 85-14-9653ohtm 1 capsule by mouth three times dailyHydroxyzine Pamoate 25 mg capsule Discontinued 25 MG PO Three times daily January 08, 2019 12:00am N ovember 2019 3:27pmlabetalol (NORMODYNE;TRANDATE) injection 10 mg (1 source)Start: 40-12-5399lcctjvwfq (NORMODYNE;TRANDATE) injection 10 mg labetalol (NORMODYNE;TRANDATE) injection syringe 5 mg (1 source)Start: 23-28-6583cfqibrxbx (NORMODYNE;TRANDATE) injection syringe 5 mg lamoTRIgine 150 mg oral tablet (20 sources)Mood Stabilizer, Anti-epileptic AgentStart: 68-14-1836objm 1 tablet by mouth once dailyLamotrigine 150 mg tablet Active 150 MG PO Daily June 29, 2025 12:00am Complies with drug therapyStart: 06-05-2025 End: 60-65-8492nwdy 2 tablets by mouth twice dailyLamotrigine 25 mg tablet Discontinued 50 MG PO Twice daily June 05, 2025 12:00am June 29, 2025 12:39pmStart: 05-16-2025 End: 94-72-7608emyy 1 tablet by mouth once dailyLamotrigine 100 mg tablet Discontinued 100 MG PO Daily May 16, 2025 12:00am June 05, 2025 12:16pm bi-polarStart: 66-67-5945mfej 2 tablets by mouth twice dailylamoTRIgine (LAMICTAL) 25 mg tablet Indications: Bipolar affective disorder in remission (HCC) , Borderline personality disorder (HCC) , Anxiety disorder, unspecified type TAKE 2 TABLETS BY MOUTH TWICE A DAY 360 tablet 02/13/2025 ActiveStart: 75-74-8022xvhz 100 mg by mouth once dailylamotrigine 100 mg, Oral, Daily, Refills(s) 0 Start Date: 01/13/25 Status: Ordered Repeat number: 1Start: 79-80-3788wyyg 3 tablets by mouth once dailylamotrigine 25 mg Tab TAKE 3 TABLETS BY MOUTH EVERY DAY Start Date: 09/15/24 Status: Ordered Repeat number: 1Start: 01-06-2024 End: 57-19-6298tpcx 2 tablets by mouth twice dailylamoTRIgine (LAMICTAL) 25 mg tablet Indications: Bipolar affective disorder in remission (HCC) , Borderline personality disorder (HCC) , Anxiety disorder, unspecified type Take 2 tablets by mouth twotimes a day. 360 tablet 08/17/2024 02/13/2025 Discontinued End: 64-55-3395wulb 3 tablets by mouth once dailylamoTRIgine (LAMICTAL) 25 mg tablet Indications: Bipolar affective disorder in remission (HCC) , Borderline personality disorder (HCC) , Anxiety disorder, unspecified type Take 75 mg by mouth once daily. 07/25/2024 Discontinued (Course of therapy completed)magnesium oxide 400 mg oral tablet (2 sources)Start: 08-08-2024 End: 27-34-9776ouuz 1 tablet by mouth once dailymagnesium oxide (Mag-Ox) 400 mg tablet Indications: Palpitations Take 1 tablet (400 mg) by mouth once daily. 90 tablet 3 08/08/2024 08/08/2025 Active1 ml meperidine hydrochloride 50 mg/ml injection (1 source)Opioid AgonistStart: 56-86-8324woghgqrroi (DEMEROL) injection 12.5 mg methocarbamol 750 mg oral tablet (1 source)Muscle RelaxantStart: 10-18-2024 End: 27-63-9864rbfi 1 tablet by mouth three times dailyRobaxin-750 oral tablet 1,500 mg = 2 tab(s), Oral, TID, X 3 day(s), # 18 tab(s), Refills(s) 0, Pharmacy: [facility]/pharmacy #[id number], 170, cm, 10/18/24 8:12:00 EST, Height/Length Dosing, 90, kg, 10/18/24 8:12:00 EST, Weight Dosing Start Date: 10/18/24 Stop Date: 10/21/24 Status: Ordered2 ml metoclopramide 5 mg/ml prefilled syringe (1 source)Dopamine-2 Receptor AntagonistStart: 09-18-2023 End: 09-21-0772emibyirbzqussy (REGLAN) injection 10 mg2 ml midazolam 1 mg/ml injection (1 source)BenzodiazepineStart: 09-18-2023 End: 55-70-5212plrbgzymx PF (VERSED) injection 2 mg1 ml morphine sulfate 2 mg/ml cartridge (6 sources)Opioid AgonistStart: 61-89-5088qedljslv (PF) injection 1 mgStart: 01-30-2021 End: 64-66-9929hsztneqy (PF) injection 2 mgStart: 01-07-2021 End: 75-83-7416oeizrnie (PF) injection 2 mgStart: 74-11-5052pfoecmnf (PF) injection 2 mgMulti-Day Plus Minerals (20 sources)Start: 32-60-0169Brlir-Day Plus Minerals Oral, Daily, Refill(s) 0 Start Date: 07/01/21 Status: Ordered Repeat number: 1Start: 30-76-7496Kdmsz-Day Plus Minerals Oral, Daily, Refill(s) 0 Start Date: 07/01/21 Status: Ordered Multiple Vitamins-Minerals (multivitamin with minerals) tablet (16 sources)take 1 tablet by mouth once dailyMultiple Vitamins-Minerals (multivitamin with minerals) tablet Take 1 tablet by mouth Daily Active Multivitamin preparation (7 sources)Start: 20-89-5693cpow 1 tablet by mouth once dailyMultivitamin Active 1 TAB PO Daily August 11, 2022 1:00amStart: 26-71-9188mibn 1 tablet by mouth once dailyMultivitamin Active 1 TAB PO Daily August 11, 2022 12:00am Multivitamin Tablet (8 sources)Start: 74-13-2390uryt 1 tablet by mouth once dailyMultivitamin Tablet Active 1 TAB PO Daily August 11, 2022 1:00am Complies with drug therapy Start: 73-09-9288vbte 1 tablet by mouth once dailyStart: 53-04-0936xhlz 1 tablet by mouth once dailyMultivitamin Tablet Active 1 TAB PO Daily August 11, 2022 1:00amStart: 06-53-3595otfz 1 tablet by mouth once dailyMultivitamin Tablet Active 1 TAB PO Daily August 11, 2022 12:93purrkyojxwasle-eiu-zqiu-FA-vit K (BARIATRIC MULTIVITAMINS) 45 mg iron- 800 mcg-120 mcg cap (20 sources)kiumlqvwsqel-lzg-glqu-FA-vit K (BARIATRIC MULTIVITAMINS) 45 mg iron- 800 mcg-120 mcg cap Take by mouth. Fmbjvksoaruhmgfcpt-ifd-zaps-FA-vit K (BARIATRIC MULTIVITAMINS) 45 mg iron- 800 mcg-120 mcg cap Take by mouth. 0 ActiveComment on above:Take by mouth.hpssyhfmiwif-syb-fdib-FA-vit K (Bariatric Multivitamins) 45 mg iron- 800 mcg-120 mcg capsule (2 sources)ajqosgmoqnee-zjx-ihmk-FA-vit K (Bariatric Multivitamins) 45 mg iron- 800 mcg-120 mcg capsule Take by mouth. Activenaproxen 500 mg oral tablet (9 sources)Nonsteroidal Anti-inflammatory DrugStart: 03-08-2024 End: 42-52-8107ualb 1 tablet by mouth twice dailynaproxen 500 mg Tab 500 mg = 1 tab(s), Oral, BID, X 10 day(s), # 20 tab(s), Refills(s) 0, Pharmacy:[facility]/pharmacy #[id number], 170, cm, 03/08/24 13:22:00 EDT, Height/Length Dosing, 89.4, kg, 03/08/24 13:22:00 EDT, Weight Dosing Start Date: 03/08/24 Stop Date: 03/18/24 Status: OrderedStart: 55-39-5049qrbu 1 tablet by mouth twice daily as needed for pain naproxen 500 mg Tab 500 mg = 1 tab(s), Oral, BID, PRN for pain, # 20 tab(s), Refills(s) 0, Pharmacy: [facility]/pharmacy #[id number], 170, cm, 04/20/22 15:01:00 EDT, Height/Length Dosing, 81.5, kg, 04/20/22 15:01:00 EDT, Weight Dosing Start Date: 04/20/22 Status: Orderednebivolol 5 mg oral tablet (1 source)Start: 99-79-0970Ekamihsuf 5 mg tablet Active 5 MG PO July 12, 2025 12:00am Complies with drug taszobl52 hr nicotine 0.583 mg/hr transdermal system (1 source)Cholinergic Nicotinic AgonistStart: 11-03-2022 End: 48-19-9687yosjwoed 14 mg/24 hr Transderm ER Film 1 patch(es), Topical, Daily for 30 day(s), 30 patch(es), Refill(s) 1, [facility]/pharmacy #[id number], 170, cm, 11/03/22 13:04:00 EST, Height/Length Dosing, 83.9, kg, 11/03/22 13:04:00 EST, Weight Dosing Start Date: 11/03/22 Stop Date: 01/02/23 Status: Owyggdi06 hr NIFEdipine 30 mg extended release oral tablet (15 sources)Dihydropyridine Calcium Channel BlockerStart: 04-49-1085frdl 1 tablet by mouth once daily at bedtimeNifedipine 30 mg tablet extended release Active 30 MG PO Daily at bedtime May 16, 2025 12:00am raykeshawnudaleksandar Complies with drug therapynitrofurantoin macrocrystals-monohydrate 100 mg Cap (2 sources)Start: 34-30-4657weby 1 capsule by mouth twice daily at mealtime nitrofurantoin macrocrystals-monohydrate 100 mg Cap TAKE 1 CAPSULE BY MOUTH TWICE A DAY FOR 5 DAYS WITH FOOD Start Date: 01/29/22 Status: Ordered nitrofurantoin, macrocrystals 25 mg / nitrofurantoin, monohydrate 75 mg oral capsule (9 sources)Nitrofuran AntibacterialStart: 38-39-7769pthv 1 capsule by mouth twice daily at mealtimenitrofurantoin macrocrystals-monohydrate 100 mg Cap TAKE 1 CAPSULE BY MOUTH TWICE A DAY FOR 5 DAYS WITH FOOD Start Date: 01/29/22 Status: Orderednystatin 750767 unt/ml oral suspension (1 source)Polyene AntifungalStart: 02-12-2022 End: 76-20-6748hqfaznwv (MYCOSTATIN) 100,000 unit/mL suspension Indications: Irritation of [...] 5 mg oral tablet (8 sources)Atypical AntipsychoticStart: 59-21-2100hllvrihjtg 5 mg Tab Refills(s) 0 Start Date: 11/15/24 Status: Ordered Repeat number: 1Trileptal (20 sources)Anti-epileptic AgentStart: 39-30-9223Qfwnyjcyk Refills(s) 0 Start Date: 08/22/22 Status: OrderedStart: 08-12-2022 End: 14-28-6900Xtegfetacombm 150 mg tablet Discontinued 75 MG PO Twice daily August 12, 2022 1:00am August 15, 2023 12:45pmStart: 08-12-2022 End: 11-04-8979wcdf 75 mg by mouth twice dailyOxcarbazepine Discontinued 75 MG PO Twice daily August 12, 2022 1:00am August 15, 2023 12:45pmoxyCODONE (1 source)Opioid AgonistStart: 09-18-2023 End: 39-14-6980yzkYLFJBB (ROXICODONE) immediate release tablet 5 mgpiperacillin- tazobactam (ZOSYN) 3,375 mg in dextrose 5 % 50 mL IVPB (mini-bag) (2 sources)Start: 03-51-1726xkqgufyxgbxi-tazobactam (ZOSYN) 3,375 mg in dextrose 5 % 50 mL IVPB (mini-bag)Start: 01-30-2021 End: 36-67-1332javiypoqoamg-tazobactam (ZOSYN) 3,375 mg in dextrose 5 % 50 mL IVPB (mini-bag)predniSONE 20 mg oral tablet (4 sources)Start: 10-18-2024 End: 47-83-5051isrb 3 tablets by mouth once dailypredniSONE 20 mg Tab 60 mg = 3 tab(s), Oral, Daily, X 7 day(s), # 21 tab(s), Refills(s) 0, Pharmacy: [facility]/pharmacy #[id number], 170, cm, 10/18/24 8:12:00 EST, Height/Length Dosing, 90, kg, 10/18/24 8:12:00 EST, Weight Dosing Start Date: 10/18/24 Stop Date: 10/25/24 Status: OrderedStart: 60-99-0940yael 1 tablet by mouth every twelve hours predniSONE 20 MG 1 tablet Orally bid for 5 day(s) Jun, Not-Taking/PRN pregabalin 150 mg oral capsule (5 sources)Start: 11-21-2024 End: 69-64-0148qfyk 1 capsule by mouth twice dailypregabalin 150 mg Cap 150 mg = 1 cap(s), Oral, BID, X 30 day(s), # 60 cap(s), Refills(s) 0, Pharmacy: [facility]/pharmacy #[id number], 170, cm, 11/15/24 13:59:00 EST, Height/Length Dosing, 88.5, kg, 11/15/24 13:59:00 EST, Weight Dosing Start Date: 11/21/24 Stop Date: 12/21/24 Status: Ordered Quantity: 60.0 Unit: cap(s) Repeat number: 1 Indication: Radiculopathy, lumbar regionStart: 11-21-2024 End: 29-77-0810zlux 1 capsule by mouth twice dailypregabalin 50 mg Cap 50 mg = 1 cap(s), Oral, BID, X 30 day(s), # 60 cap(s), Refills(s) 1, Pharmacy:[facility]/pharmacy #[id number], 170, cm, 11/15/24 13:59:00 EST, Height/Length Dosing, 88.5, kg, 11/15/24 13:59:00 EST, Weight Dosing Start Date: 11/21/24 Stop Date: 01/20/25 Status: Ordered Quantity: 60.0 Unit: cap(s) Repeat number: 2 Indication: Radiculopathy, lumbar regionprenatal vits w-ca,fe,fa(<1mg)( VITAMIN TAB) (3 sources)Start: 06-22-2008 End: 74-29-8354fujuwoyn vits w-ca,fe,fa(Start: 95-23-0821ecnlqdmy vits w-ca,fe,fa(72 hr scopolamine 0.0139 mg/hr transdermal system (1 source)AnticholinergicStart: 33-14-6252mevaxsewfno (TRANSDERM-SCOP) transdermal patch 1 patchsemaglutide (10 sources)Start: 07-58-2642eddlms 2.4 mg by subcutaneous injection every week semaglutide 2.4 mg, SubCutaneous, qWeek, Refills(s) 0 Start Date: 01/27/25 Status: Ordered Repeat number: 15 ml sodium chloride 9 mg/ml injection (19 sources)Start: 10-27-7894xhxhyk chloride flush 0.9 % injection 40 mLStart: 44-99-4164rxwybn chloride flush 0.9 % injection 5-40 mLStart: .9 % sodium chloride infusionStart: 18-59-3215tmktqh chloride flush 0.9 % injection 540 mLStart: 78-57-4078qhum 1 dose intravenously twice daily5-40 mL, Intravenous, [...] Midline or Central Line = 20 mL/lumenStart: 28-18-7074gnhf 5-40 mL intravenously once as needed5-40 mL, [...] Midline or Central Line = 20 mL/lumenStart: 41-06-0693zzxd 25 mL intravenously every hour as ovtqir56 mL, Intravenous, at 100 mL/hr, PRN, If patient receiving piggyback infusions without ordered maintenance IV fluids or with frequent/long duration piggyback infusions, Starting on Thu01/30/21 at 2157 Administer at the same rate as the piggyback being infused.Start: 01-30-2021 End: .9 % sodium chloride bolusStart: .9 % sodium chloride infusionStart: 01-26-2021 End: .9 % sodium chloride bolusStart: .9 % sodium chloride infusionStart: 04-13-8898rmfyvb chloride flush 0.9 % injection 5-40 mLStart: 94-75-1511ecglku chloride flush 0.9 % injection 10 mLStart: 09-28-2020 End: .9 % sodium chloride bolusStart: 90-81-7888rvvxjc chloride flush 0.9 % injection 10 mLvarenicline 0.5 mg oral tablet (20 sources)Partial Cholinergic Nicotinic AgonistStart: 71-83-4150duep 1 tablet by mouth once dailyvarenicline (CHANTIX) 0.5 mg (11)- 1 mg (42) tablet Take 0.5 mg by mouth once daily on Days 1 through 3, THEN 0.5 mg twice daily on Days 4 through 7, THEN 1 mg twice daily on Day 8 and thereafter 42 tablet 03/08/2024 ActiveStart: 10-16-2023 End: 61-92-5840sgno 1 tablet by mouth oncevarenicline (CHANTIX) 0.5 mg (11)- 1 mg (42) tablet TAKE 1 TABLET BY MOUTH DIRECTED PER PACKAGE INSTRUCTIONS 0 10/16/2023 03/08/2024 DiscontinuedStart: 91-16-9793fuebvdacmak 0.5 mg oral tablet See Instructions, Step 1: Take 1 tablet daily for 3 days. Then 1 tablet twice daily for 4 days. Start 1 week before planned quit date. Stop smoking 8- 35 days after starting medicine if quit date unplanned., # 11 tab(s), Refills(s) 0, Pharmacy:... Start Date: 04/21/22 Status: OrderedStart: 08-27-2021 End: 46-97-6676oquxkjttfzj (Chantix) 1 mg tablet as needed 08/27/2021 08/08/2024 Discontinued (Therapy completed)work excuse (2 sources)Start: 55-97-3493ycfh excuse work excuse, Patient was seen in our clinic and received a procedure on 03/03/2025. She is to be off for recovery from the procedure on 03/04/2025., Print Requisition, Supply Start Date: 03/09/25 Status: Ordered Repeat number: 1Zofran ODT 4 mg Tab-Dis (2 sources)Start: 27-58-7566udxj 1 tablet by mouth every eight hours as needed for nauseaZofran ODT 4 mg Tab-Dis 4 mg = 1 tab(s), Oral, q8hr, PRN Nausea/Vomiting, # 12 tab(s), Refills(s) 0, Pharmacy: [facility]/pharmacy #[id number], 162, cm, 08/08/22 9:11:00 EST, Height/Length Dosing, 83.1, kg, 08/08/22 9:11:00 EST, Weight Dosing Start Date: 08/08/22 Status: Ordered Completed/Discontinued Medications MedicationDrug Class(es)DatesSig (Normalized)Sig (Original)acetaminophen 325 mg / HYDROcodone bitartrate 5 mg oral tablet (2 sources)Opioid Agonist End: 19-36-7520stse 1 tablet by mouth every six hours as neededHYDROcodone- acetaminophen (Epps) 5-325 mg tablet Take 1 tablet by mouth every 6 hours if needed. 08/08/2024 Discontinued (Therapy completed)[id number] 200 actuat albuterol 0.09 mg/actuat metered dose inhaler (9 sources)beta2-Adrenergic AgonistStart: 05-30-2025 End: 14-52-4170ehug 2 puff(s) by inhalation four times daily as neededAlbuterol Sulfate 90 mcg/actuation HFA aerosol inhaler Discontinued INHALATION Four times daily May 30, 2025 12:00am June 29, 2025 12:38pm FreeTextSi puffs Inhalation 4 times a day prn; Note: Source Status: Taking; Refills: 0; Provider: Tegan Jorge AStart: 37-02-3423zscx 2 puff(s) by inhalation four times daily as neededAlbuterol Sulfate HFA 108 (90 Base) MCG/ACT 2 puffs Inhalation 4 times a day prn Jun, ActiveStart: 44-83-7249yelb 2 puff(s) by inhalation four times daily as neededAlbuterol Sulfate HFA 108 (90 Base) MCG/ACT 2 puffs Inhalation 4 times a day prn Jun, ActiveStart: 47-56-3388epjs 2 puff(s) by inhalation four times daily as neededAlbuterol Sulfate HFA 108 (90 Base) MCG/ACT 2 puffs Inhalation 4 times a day prn Jun, ActiveStart: 87-99-2774ikgx 2 puff(s) by inhalation every four hours as neededAlbuterol Sulfate HFA 108 (90 Base) MCG/ACT 2 puffs as needed Inhalation every 4 hrs for 7 days Nov, Not-Taking/PRNStart: 86-28-2244bxyq 2 puff(s) by inhalation every four hours as neededAlbuterol Sulfate HFA 108 (90 Base) MCG/ACT 2 puffs as needed Inhalation every 4 hrs for 7 days Nov, Not-TakingStart: 30-80-9470trdd 2 puff(s) by inhalation every four hours as neededAlbuterol Sulfate HFA 108 (90 Base) MCG/ACT 2 puffs as needed Inhalation every 4 hrs for 7 days Nov, Not-TakingALPRAZolam 0.5 mg oral tablet (10 sources)BenzodiazepineStart: 11-22-2020 End: 97-90-4055hlla 1 tablet by mouth three times daily as neededALPRAZolam (Xanax) 0.5 mg tablet Take 1 tablet (0.5 mg) by mouth 3 times a day as needed. 11/22/2020 08/08/2024 Discontinued (Therapy completed)Start: 00-73-9284bout 1 tablet by mouth once daily as needed for anxietyALPRAZolam (XANAX) 0.5 MG tablet TAKE 1 TABLET BY MOUTH DAILY NEEDED FOR ANXIETY 0 11/22/2020 Activeaspirin 81 mg chewable tablet (1 source)Platelet Aggregation Inhibitor, Nonsteroidal Anti-inflammatory Drug End: 15-23-4417fzrl 1 tablet by mouth twice dailyaspirin 81 MG chewable tablet Take 81 mg by mouth 2 times daily 0 09/25/2020 Discontinued (LIST CLEANUP)barium sulfate 60 % suspension 355 mL (1 source)Start: 11-01-2020 End: 25-96-5966qmslmc sulfate 60 % suspension 355 mLbenzonatate 200 mg oral capsule (3 sources)Non-narcotic AntitussiveStart: 51-78-2346vrnb 1 capsule by mouth every eight hoursBenzonatate 200 MG 1 capsule Orally Three times a day for 7 days Nov, Not-Taking/PRNbrexpiprazole 4 mg oral tablet (20 sources)Atypical AntipsychoticStart: 06-26-2021 End: 67-15-3466EIITBQX 4 MG TABS tabletStart: 01-08-2019 End: 99-09-0423lwwx 1 tablet by mouth once daily at bedtimeBrexpiprazole (Rexulti) 3 mg Tablet Discontinued 4 MG PO Daily at bedtime January 08, 2019 12:00am May 16, 2025 9:20amRexulti ActiveComment on above:Take by mouth once daily.calcium carbonate 1250 mg oral tablet (20 sources)Start: 08-11-2022 End: 93-09-3889aqfi 1 tablet by mouth twice dailyCalcium Carbonate 500 mg calcium (1,250 mg) Tablet Discontinued 500 MG PO Twice daily August 11, 2022 1:00am May 16, 2025 9:24amtake 1 tablet by mouth once dailycalcium carbonate (OSCAL) 500 MG TABS tablet Take 1 tablet by mouth daily Josue melts 0 Suspendedcalcium citrate 0.415 mg/mg / cholecalciferol 0.1 unt/mg oral powder (12 sources)Vitamin D End: 86-65-3752izshgdi citrate-vitamin D3 500 mg-12.5 mcg /5 gram powd Take by mouth. 0 03/08/2024 DiscontinuedComment on above:Take by mouth.cariprazine 1.5 mg oral capsule (20 sources)Atypical AntipsychoticStart: 06-05-2025 End: 19-30-3156wfor 1 capsule by mouth once dailyCariprazine (Vraylar) 1.5 mg capsule Discontinued 1.5 MG PO Daily June 05, 2025 12:00am July 12, 2025 8:37amStart: 40-48-1295Vysgooz Oral, Daily, Refills(s) 0 Start Date: 01/13/25 Status: Ordered Repeat number: 1ceFAZolin (ANCEF) 2000 mg in dextrose 5 % 50 mL IVPB (1 source)Start: 01-07-2021 End: 20-21-9085jwLGJvlbd (ANCEF) 2000 mg in dextrose 5 % 50 mL IVPB chlordiazePOXIDE hydrochloride 25 mg oral capsule (11 sources)BenzodiazepineStart: 06-05-2025 End: 28-60-4258mwow 1 capsule by mouth three times daily as needed Chlordiazepoxide Hcl 25 mg capsule Discontinued 25 MG PO Three times daily as needed June 05, 2025 12:00am June 29, 2025 12:37pmcholecalciferol 1.25 mg oral tablet (9 sources)Vitamin D End: 10-30-2525yrfcllbibruropi (Vitamin D3) 1,250 mcg (50,000 unit) tablet Take 1 tablet (50,000 Units) by mouth every 7 days. 08/08/2024 Discontinued (Therapy completed) End: 63-41-1675Ccpsagmqhhtfuhv (VITAMIN D3) 125 MCG (5000 UT) TABS Take by mouth daily 0 01/07/2021 Discontinued (LIST CLEANUP)Cholecalciferol (VITAMIN D3) 125 MCG (5000 UT) TABS Take by mouth 0 ActiveclonazePAM 0.5 mg oral tablet (7 sources)BenzodiazepineStart: 01-05-2024 End: 48-11-1078ttwp 1 tablet by mouth twice daily as needed for anxiety clonazePAM (KLONOPIN) 0.5 mg tablet Indications: Panic disorder Take 1 tablet by mouth two times a day as needed for anxiety (Panic attacks) for up to 30 days. 60 tablet 01/05/2024 07/01/2024 Discontinued End: 51-32-4229rcov 1 tablet by mouth twice dailyclonazePAM (KlonoPIN) 0.25 mg disintegrating tablet Take 1 tablet (0.25 mg) by mouth twice a day. 08/08/2024 Discontinued (Therapy completed)cloNIDine hydrochloride 0.1 mg oral tablet (1 source)Central alpha-2 Adrenergic AgonistStart: 02-25-2023 End: 03-00-5996woqj 1 tablet by mouth twice dailycloNIDine (Catapres) 0.1 mg tablet Take 1 tablet (0.1 mg) by mouth 2 times a day. 02/25/2023 08/08/2024 Discontinued (Therapy completed)cyclobenzaprine hydrochloride 10 mg oral tablet (17 sources)Muscle RelaxantStart: 11-19-2024 End: 08-29-7068gxcr 1 tablet by mouth three times daily as neededCyclobenzaprine 10 mg tablet Discontinued 10 MG PO Three times daily as needed June 052:00am June 29, 2025 12:38pmStart: 11-10-2022 End: 65-35-8070seda 1 tablet by mouth once daily at bedtimecyclobenzaprine (FLEXERIL) 5 MG tablet TAKE 1 TABLET BY MOUTH ONCE EVERYDAY AT BEDTIME 0 301/01/2024 Discontinued (Stop Taking at Discharge)Start: 08-22-2022 End: 54-51-9224vvdn 1 tablet by mouth three times dailycyclobenzaprine 5 mg Tab 5 mg = 1 tab(s), Oral, TID, X 14 day(s), # 42 tab(s), Refills(s) 0, Pharmacy: [facility]/pharmacy #[id number], 170, cm, 08/22/22 10:41:00 EST, Height/Length Dosing, 85, kg, 08/22/22 10:41:00 EST, Weight Dosing Start Date: 08/22/22 Stop Date: 09/05/22 [facility] End: 06-29-8160lgik 10 mg by mouth three times daily as needed for muscle spasms 10 mg, Oral, 3 TIMES DAILY PRN, Muscle spasms, Starting on Thu01/30/21 at 2157 doxycycline hyclate 100 mg oral capsule (7 sources)Tetracycline-class DrugStart: 05-16-2025 End: 52-15-5784bqrj 1 capsule by mouth every twelve hoursDoxycycline Hyclate 100 mg capsule Discontinued 60 MG PO Every 12 hours May 16, 2025 12:00am May 30, 2025 8:25am FreeTextSi capsule Orally every 12 hrs; Note: Source Status: Not-Taking\PRN; Refills: 0; Provider: Emmanuel AvilaAnnabella: 85-97-0174aryq 1 capsule by mouth every twelve hoursDoxycycline Hyclate 100 MG 1 capsule Orally every 12 hrs for 7 days Nov, Not-Taking/PRNergocalciferol 1.25 mg oral capsule (15 sources)Provitamin D2 CompoundStart: 07-19-2020 End: 00-14-3887Opuvyotphxhlws (Vitamin D2) 1,250 mcg (50,000 unit) capsule Discontinued 65139 UNIT PO every week July 19, 2020 1:00am August 19, 2022 8:39amStart: 07-19-2020 End: 48-88-2638qccu 84888 [IU] by mouth every weekErgocalciferol (Vitamin D2) Discontinued 79258 UNIT PO every week July 19, 2020 1:00am August 19, 2022 8:39am2 ml fentaNYL 0.05 mg/ml injection (3 sources)Opioid AgonistStart: 01-30-2021 End: 18-34-8969kcimbIZO (SUBLIMAZE) injection 50 mcgStart: 01-07-2021 End: 30-80-8794ihkncLLR (SUBLIMAZE) injection 25 mcggabapentin 600 mg oral tablet (20 sources)Anti-epileptic AgentStart: 01-13-2025 End: 00-83-8335Zungemsdde 600 mg tablet Discontinued MG May 30, 2025 12:00am June 05, 2025 12:23pmStart: 10-14-2024 End: 41-55-3319cdzn 1 capsule by mouth in the morning, then take 1 capsule by mouth in the evening, then take 1 capsule by mouth at bedtimegabapentin (Neurontin) 300 MG capsule Take 1 capsule by mouth in the morning and 1 capsule in the evening and 1 capsule before bedtime. 10/14/2024 07/03/2025 Discontinued (Therapy completed)Start: 96-49-3686vzrw 1 capsule by mouth three times daily gabapentin 300 mg Cap 300 mg = 1 cap(s), Oral, TID, # 90 cap(s), Refills(s) 0, Pharmacy: [facility]/pharmacy #[id number], 170, cm, 10/14/24 9:02:00 EST, Height/Length Dosing, 90.2, kg, 10/14/24 9:02:00 EST, Weight Dosing Start Date: 10/14/24 Status: OrderedStart: 09-24-2022 End: 74-94-0175ttxq 1 capsule by mouth twice dailygabapentin 300 mg Cap 300 mg = 1 cap(s), Oral, BID, Refills(s) 0, Other (see comment) Start Date: 11/21/22 Status: Orderedibuprofen 600 mg oral tablet (6 sources)Nonsteroidal Anti-inflammatory DrugStart: 05-30-2025 End: 39-17-3526kbzg 4 tablets by mouth every twenty-four hours for painIbuprofen 600 mg tablet Discontinued 600 MG PO EVERY 4-6 HOURS as needed for pain 20 5 0 May 30, 2025 12:00am June 29, 2025 12:38pm do not exceed 4 doses in a 24 hour periodIbuprofen Not-Taking/PRNIbuprofen Not-Takingiohexol (OMNIPAQUE 240) injection 30 mL (1 source)Start: 01-08-2021 End: 88-54-9333hvgrgrf (OMNIPAQUE 240) injection 30 mLiopamidol (ISOVUE-370) 76 % injection 18 mL (2 sources)Start: 02-04-2021 End: 99-33-4669cdfrbzwob (ISOVUE-370) 76 % injection 18 mLStart: 01-30-2021 End: 63-28-6486wcwisgzqe (ISOVUE-370) 76 % injection 18 mLiopamidol (ISOVUE-370) 76 % injection 75 mL (2 sources)Start: 02-04-2021 End: 03-06-4512zehriwtmv (ISOVUE-370) 76 % injection 75 mLStart: 01-30-2021 End: 83-54-5201yigyavlqg (ISOVUE-370) 76 % injection 75 mLiv contrast (will be provided with radiology test) (4 sources)Start: 07-04-2024 End: 14-47-6860yu contrast (will be provided with radiology test) [...] 1 Each 07/04/2024 07/05/2024 ExpiredStart: 03-08-2024 End: 05-87-2701ag contrast (will be provided with radiology test) [...] Each 0 03/08/2024 03/09/2024 ActiveStart: 11-20-2022 End: 78-01-6460aj contrast (will be provided with radiology test) [...] source)Nonsteroidal Anti-inflammatory Drug, Cyclooxygenase InhibitorStart: 01-08-2021 End: 25-55-9187shhuvbkom (TORADOL) injection 30 mgLidocaine (2 sources)Antiarrhythmic, Amide Local AnestheticStart: 07-11-2024 End: 07-11-2024X (OR/PROCEDURE) PRN, Starting on Thu07/11/24 at 0901, Until Thu07/11/24 at 0901, IntraprocedureStart: 09-28-2020 End: 24-66-9412iiypbmepx PF 1 % injection 1 mLlisinopril 5 mg oral tablet (20 sources)Angiotensin Converting Enzyme InhibitorStart: 08-14-2022 End: 22-93-5026qimz 1 tablet by mouth once dailyLisinopril 5 mg Tablet Discontinued 5 MG PO Daily August 19, 2022 1:00am July 03, 2023 10:07am LORazepam 0.5 mg oral tablet (20 sources)BenzodiazepineStart: 12-31-2023 End: 68-79-9948auis 1 tablet by mouth three times daily as needed for anxiety Lorazepam (Ativan) 0.5 mg tablet Discontinued 0.5 MG PO Three times daily as needed for anxiety 03 03December 31, 2023 12:00am May 16, 2025 9:25am Anxiety Anxiety disorder, unspecifiedStart: 01-31-2020 End: 84-82-2807piaj 1 tablet by mouth twice daily as needed for anxietyLorazepam 1 mg tablet Discontinued 1 MG PO Twice daily as needed for Anxiety July 18, 2020 1:00am August 19, 2022 8:39am End: 59-23-1892kjdo 1 tablet by mouth every eight hours as neededLORazepam (Ativan) 1 mg tablet Take 1 tablet (1 mg) by mouth every 8 hours if needed. 08/08/2024 Discontinued (Therapy completed)Magic Mouthwash (10 sources)Start: 02-06-2022 End: 20-16-5933Imhpu Mouthwash Magic Mouthwash, 5 mL, Oral, TID, 240 mL, 0, Swish and swallow. 30 mL Nystatin + 210 mL Diphenhydramine + #5 tabs 20 mg hydrocortisone + Doxycycline 1,000 mg (tabs/cap)., [facility]/pharmacy#[id number], Compound, 170, cm, 02/06/22 9:17:00 EDT, Height/Length Dos... Start Date: 02/06/22 Stop Date:02/20/22 Status: OrderedmethylPREDNISolone 4 mg oral tablet (11 sources)CorticosteroidStart: 12-03-2018 End: 89-33-7170zcbyppNVOWEJWnggfv 4 MG as directed Orally take as directed for 6 days Nov, Not-Taking/OMH533 ml metroNIDAZOLE 5 mg/ml injection (1 source)Nitroimidazole AntimicrobialStart: 01-07-2021 End: 38-17-0037verqnvudjvmpy (FLAGYL) 500 mg in NaCl 100 mL IVPB premixMultiple Vitamins-Minerals (MULTI-DAY PLUS MINERALS PO) (1 source)Start: 32-37-6263Avlfrwyy Vitamins-Minerals (MULTI-DAY PLUS MINERALS PO) Take by [...] with minerals tablet (1 source)Start: 07-01-2021 End: 14-48-7575dszk 1 tablet by mouth once dailymultivitamin with minerals tablet Take 1 tablet by mouth once daily. 07/01/2021 08/08/2024 Discontinued (Therapy completed)naltrexone 380 mg injection (20 sources)Opioid AntagonistStart: 08-15-2023 End: 59-50-8630yvicwa 380 mg by intramuscular injection every monthNaltrexone Microspheres (Vivitrol) 380 mg suspension,extended rel recon Discontinued 380 MG IM every month August 15, 2023 1:00am December 31, 2023 12:00pm Not planning on taking it this monthStart: 03-12-2023 End: 10-99-3588eghv 1 tablet by mouth once dailynaltrexone 50 mg tablet Indications: Chronic alcoholism in remission (HCC) Take 1 tablet by mouth once daily. 90 tablet 3 03/08/2024 07/01/2024 DiscontinuedStart: 41-48-3797xfon 1 tablet by mouth once dailynaltrexone 50 mg oral tablet 50 mg = 1 tab(s), Oral, Daily, # 30 tab(s), Refills(s) 0 Start Date: 09/24/22 Status: Ordered End: 03-14-7899sqpfusuksy ER (VivitroL) injection Inject 4 mL (380 mg) into the muscle. 08/08/2024 Discontinued (Therapy completed)ondansetron 4 mg disintegrating oral tablet (20 sources)Serotonin-3 Receptor AntagonistStart: 06-05-2025 End: 82-20-3173oyyz 1 tablet by mouth every eight hoursOndansetron 4 mg tablet,disintegrating Discontinued 4 MG PO Every 8 hours June 05, 2025 12:00am June 29, 2025 12:38pmStart: 40-65-7117nwpozrqmqrm ODT (Zofran-ODT) 4 MG disintegrating tablet DISSOLVE 1 TABLET ON THE TONGUE ONCE EVERY 4 HOURS NEEDED FOR NAUSEA AND VOMITING FOR 3 DAYS 04/12/2025 ActiveStart: 07-25-2024 take 1 tablet by mouth every eight hours as neededondansetron orally disintegrating (ZOFRAN ODT) 4 mg disintegrating tablet Take 1 tablet by mouth every 8 hours as needed for nausea/vomiting. 30 tablet 07/25/2024 ActiveStart: 09-18-2023 End: 68-98-3643gqtlcbqunmj (ZOFRAN) injection 4 mgStart: 32-69-7550rzal 1 tablet by mouth twice dailyZofran 8 mg Tab 8 mg = 1 tab(s), Oral, BID, # 6 tab(s), Refills(s) 1, Pharmacy: [facility]/pharmacy #[id number],162, cm, 08/08/22 9:11:00 EST, Height/Length Dosing, 83.1, kg, 08/08/22 9:11:00 EST, Weight Dosing Start Date: 08/14/22 Status: Ordered Quantity: 6.0 Unit: tab(s) Repeat number: 2 Indication: NauseaStart: 01-30-2021 End: 82-79-9085dloeznzrbze (ZOFRAN) injection 4 mgStart: 95-58-5499dydptqwydys (ZOFRAN) injection 4 mgStart: 06-48-4142vmzf 1 tablet by mouth every four hours as neededondansetron (ZOFRAN-ODT) 4 MG disintegrating tablet DISSOLVE ONE TABLET BY MOUTH EVERY 4 HOURS NEEDED 0 11/26/2020 ActiveStart: 09-28-2020 End: 21-81-9737dkvxjecoifw (ZOFRAN) injection 4 mgondansetron (Zofran) 4 MG tablet Take by mouth Activepantoprazole 40 mg delayed release oral tablet (20 sources)Proton Pump InhibitorStart: 06-05-2025 End: 86-76-8968fcvh 1 tablet by mouth once dailyPantoprazole 40 mg tablet,delayed release (DR/EC) Discontinued 40 MG PO Daily June 05, 2025 12:00am July 12, 2025 8:38amStart: 78-35-3677Ftodinfjnyaz [address] Tab Refills(s) 0 Start Date: 07/01/21 Status: OrderedStart: 06-27-2020 End: 58-62-1795cugv 1 tablet by mouth once dailyPantoprazole 40 mg tablet,delayed release (DR/EC) Discontinued 40 MG PO Daily July 18, 2020 1:00am May 16, 2025 9:25am End: 92-41-6688sxua 1 tablet by mouth once dailypantoprazole (ProtoNix) 20 mg EC tablet Take 1 tablet (20 mg) by mouth once daily. 08/08/2024 Discontinued (Therapy completed)Comment on above:Take 40 mg by mouth once daily.PARoxetine hydrochloride 30 mg oral tablet (1 source)Serotonin Reuptake Inhibitor End: 53-85-4790vhzv 1 tablet by mouth once dailyPARoxetine (Paxil) 30 mg tablet Take 1 tablet (30 mg) by mouth once daily. 08/08/2024 Discontinued (Therapy completed)100 ml potassium chloride 0.1 meq/ml injection (1 source)Start: 01-08-2021 End: 64-24-4365mxztspqvr chloride 10 mEq/100 mL IVPB (Peripheral Line) promethazine hydrochloride 25 mg oral tablet (20 sources)PhenothiazineStart: 08-15-2023 End: 34-70-4964jnzl 1 tablet by mouth every six hours as needed for nausea and vomitingPromethazine 25 mg tablet Discontinued 25 MG PO Q6H as needed for nausea and vomiting 15 2022 1:00am December 31, 2023 12:00pmStart: 22-36-1450Engcqvjxw Refills(s) 0 Start Date: 08/22/22 Status: OrderedStart: 08-21-2022 End: 72-85-3909wmoh 1 tablet by mouth every six hours as needed for nausea Promethazine 25 mg tablet Discontinued 25 MG PO Q6H as needed for Nausea 10 0 August 21, 2022 1:00am July 03, 2023 10:07amStart: 11-40-1349csvtzg 12.5 mg by intramuscular injection every six hours as needed for .5 mg, Intravenous, EVERY 6 HOURS PRN, Nausea, Vomiting, Starting on Thu01/30/21 at 2157 Recommended route is IM. For IV administration, dilute to 10ml with normal saline. Must be administered over at least 10 minutes.Start: 01-07-2021 End: 24-07-7141mbam 1 tablet by mouth every six hours as needed for nausea promethazine (PHENERGAN) 25 MG tablet Take 1 tablet by mouth every 6 hours as needed for Nausea 80 tablet 0 01/08/2021 01/28/2021 ActiveStart: 01-07-2021 promethazine (PHENERGAN) injection 12.5 mgStart: 20-38-2233qnmynagfzajn (PHENERGAN) injection 12.5 mgQUEtiapine 100 mg oral tablet (20 sources)Atypical AntipsychoticStart: 07-19-2020 End: 47-74-4598orxk 1 tablet by mouth once daily at bedtimeQuetiapine 100 mg tablet Discontinued 100 MG PO Daily at bedtime July 19, 2020 1:00am 2021 8:39amStart: 01-08-2019 End: 56-86-3936hrzb 3 tablets by mouth once daily at bedtimeQuetiapine (Seroquel) 50 mg Tablet Discontinued 150 MG PO Daily at bedtime January 08, 2019 12:00amNoveer 2019 1:34amSEROquel Not-Taking/PRNSEROquel Not-Taking End: 97-73-7348UXOspxfvla (SEROQUEL) 100 MG tablet Take 50 mg by mouth daily 0 12/24/2020 Discontinued (LIST CLEANUP)Semaglutide (9 sources)Start: 12-31-2023 End: 21-33-8170Pcstzfyebne (Ozempic) 0.25 mg or 0.5 mg (2 mg/3 mL) pen injector Discontinued 0.5 MG SUBCUT every week December 31, 2023 12:00am May 16, 2025 9:25am for 4 weeksStart: 54-18-3616Vzgbh: 68-67-5189Dhpqlrmbteo (Ozempic) 0.25 mg or 0.5 mg (2 mg/3 mL) pen injector Active 0.5 MG SUBCUT every week December 30, 2023 11:00pm for 4 weeksStart: 43-58-4476Whxxoaeeast (Ozempic) 0.25 mg or 0.5 mg (2 mg/3 mL) pen injector Active 0.5 MG SUBCUT every week December 31, 2023 12:00am for 4 weeksSEMAGLUTIDE SUBCUTANEOUS (3 sources) End: 31-98-7901JGHLDBFWPZA SUBCUTANEOUS Inject subcutaneously. 0 03/08/2024 DiscontinuedSEMAGLUTIDE SUBCUTANEOUS Inject subcutaneously. 0 Activesucralfate 1000 mg oral tablet (13 sources)Aluminum ComplexStart: 07-30-2023 End: 74-64-5223itba 1 tablet by mouth four times dailySucralfate 1 gram tablet Discontinued 1 GM PO Four times daily August 15, 2023 1:00am December 31, 2023 12:00pmSUMAtriptan (3 sources)Serotonin-1b and Serotonin-1d Receptor AgonistImitrex Not-Taking/PRN Imitrex Not-Takingterbinafine 250 mg oral tablet (15 sources)Allylamine AntifungalStart: 07-19-2020 End: 67-01-8677bier 1 tablet by mouth once dailyTerbinafine Hcl 250 mg tablet Discontinued 250 MG PO Daily July 19, 2020 1:00am July 20, 2020 11:10amtopiramate 100 mg oral tablet (20 sources)Start: 08-15-2023 End: 30-07-1468Ojfbqtjlaq (Topamax) 100 mg tablet Discontinued 50 MG PO Daily August 15, 2023 12:47pm 2024 9:25amStart: 11-20-2022 End: 37-54-2186dtvzxvtsab (TOPAMAX) 100 mg tablet Take 1 tablet by mouth twice daily. Reduce to 50mg for 1-2 weeks, then 25mg for 1-2 weeks, then stop 0 11/20/2022 06/03/2023 DiscontinuedStart: 08-12-2022 End: 01-74-6678Ybgipzuzrp (Topamax) 100 mg Tablet Discontinued 50 MG PO Twice daily 0 30 0 August 12, 2022 5:17pm August 15, 2023 12:47pmStart: 01-08-2019 End: 39-99-2560cgaw 1 tablet by mouth once daily at [...] tablet (20 sources)Serotonin Reuptake InhibitorStart: 05-16-2025 End: 86-28-6886nfdr 1 tablet by mouth once daily at bedtimeTrazodone 100 mg tablet Discontinued 100 MG PO Daily at bedtime May 16, 2025 12:00am 2024 8:38amStart: 82-47-3712iyzqjrqpu Refills(s) 0 Start Date: 08/22/22 Status: OrderedStart: 08-11-2022 End: 50-33-9615dywd 1 tablet by mouth once daily at bedtimeTrazodone 100 mg Tablet Discontinued 100 MG PO Daily at bedtime August 11, 2022 1:00am July 03, 2023 10:07amStart: 01-31-2022 End: 22-66-5138vkwn 1 tablet by mouth once daily at bedtimetraZODONE 50 mg Tab 50 mg = 1 tab(s), Oral, Once a day (at bedtime), X 7 day(s), # 7 tab(s), Refills (s) 0, Pharmacy: [facility]/pharmacy #[id number], 170, cm, 01/31/22 16:58:00 EDT, Height/Length Dosing, 90, kg, 01/31/22 16:58:00 EDT, Weight Dosing Start Date: 01/31/22 Stop Date: 02/07/22 Status: Orderedtriamcinolone acetonide 1 mg/ml topical cream (7 sources)CorticosteroidStart: 03-08-2024 End: 64-54-6510vvzapchdcmjzn acetonide (KENALOG) 0.1 % cream Indications: Dermatitis Apply to affected area two times a day. 28.4 g 03/08/2024 07/01/2024 DiscontinuedStart: 11-02-2015 End: 87-84-5572zpqljxqdghgak (Kenalog) 0.1 % ointment Apply topically twice a day. 11/02/2015 08/08/2024 Discontinued (Therapy completed)ziprasidone 20 mg oral capsule (18 sources)Atypical AntipsychoticStart: 06-05-2025 End: 65-50-9253jfkc 1 capsule by mouth twice daily at mealtimeZiprasidone Hcl 20 mg capsule Discontinued 20 MG PO Twice daily June 05, 2025 12:00am July 12, 2025 8:38am give with food (meal/snack) Problems Active Problems Problem ClassificationProblemDateDocumented DateEpisodic/ChronicAbdominal pain (20 sources)Generalized abdominal pain; Translations: [Generalized abdominal pain]Onset: 60-98-9329JryekfjnQkmutpme foot deformities (5 sources)Acquired bilateral pes planus; Translations: [Flat feet]Onset: 334847-39-5298Cvydqworxi disorders (19 sources)Adjustment disorder with depressed mood; Translations: [Adjustment disorder with depressed mood]Onset: 11-20-0008VkpnpgtHhbrxle-related disorders (20 sources)Alcohol abuse; Translations: [Alcohol abuse, uncomplicated]Onset: 44-88-2090KnhgjczAexzmesk reactions (1 source)Inflammatory dermatosis; Translations: [Dermatitis, unspecified] 24-07-5656KlmztxlpQhqsiit disorders (20 sources)Mixed anxiety and depressive disorder; Translations: [Anxiety disorder, unspecified]Onset: 905053-99-2732TomlcepAysbhyxgj and vision defects (20 sources)Blurring of visual image; Translations: [Other visual disturbances] Onset: 767005-97-3833LbnjsdiyBhpaual dysrhythmias (20 sources)Palpitations; Translations: [Palpitations]Onset: 08-08-2024 40-85-0489YnwbzeowOrfaudt obstructive pulmonary disease and bronchiectasis (2 sources)Bronchitis, not specified as acute or chronic; Translations: [Bronchitis]Onset: 45-74-7327KcbmurdtJnyhwcihpc associated with dizziness or vertigo (3 sources)Dizziness and giddiness; Translations: [Dizziness and giddiness] Onset: 44-62-8824QwjaijuzTpaeedsq atherosclerosis and other heart disease (11 sources)Angina pectoris; Translations: [Angina pectoris, unspecified]Onset: 031058-31-3305OzuhausKojryqdu of white blood cells (8 sources)Leukocytosis; Translations: [Elevated white blood cell count, unspecified]Onset: 08-93-7234PmnbpxhYofwqhvzcs disorders (20 sources)Gastroesophageal reflux disease without esophagitis; Translations: [Gastro-esophageal reflux disease with esophagitis]Onset: 05-23-2020 Resolved: 532810-35-5634TxcuhlpBwwyqsybf hypertension (20 sources)Essential hypertension; Translations: [Essential (primary) hypertension]Onset: 08-08-2022 Resolved: 96-80-9712JerwnkyZbpytjzt; including migraine (20 sources)Tension-type headache; Translations: [Tension-type headache, unspecified, not intractable]Onset: 534654-30-5858AzevuwtHdgvfngu; including migraine (20 sources)Headache; Translations: [Headache, unspecified]Onset: 08-08-2022 EpisodicHeadache; including migraine (4 sources)Headache; including migraine; Translations: [HEADACHE UNSPECIFIED] Onset: 83-19-8292Dvbau disorders and dislocations; trauma-related (11 sources)Derangement of left knee; Translations: [Unspecified internal derangement of left knee]Onset: 460962-59-1531EdpnymcWdxvieqrfijms (13 sources)Localized enlarged lymph nodes; Translations: [Localized enlarged lymph nodes]Onset: 47-38-0310PfxleqpbAhflbay and fatigue (20 sources)Asthenia; Translations: [Weakness]Onset: 938885-93-4725 EpisodicMood disorders (20 sources)Bipolar disorder; Translations: [Bipolar disorder, unspecified] Onset: 535772-96-0896ZnatvgiQepa disorders (1 source)Mood disorders; Translations: [Depression, unspecified]Onset: 72-03-6073Jksyzd and vomiting (18 sources)Vomiting, unspecified; Translations: [Nausea]Onset: 06-12-2022 EpisodicNonmalignant breast conditions (1 source)Fibrocystic changes of bilateral breasts; Translations: [Diffuse cystic mastopathy of right breast]33-58-6311CyvdpyzNlnjbftvehmc breast conditions (20 sources)Hypertrophy of breast; Translations: [Hypertrophy of breast]Onset: 13-04-7314BwyngwgbWozwunvxrnd chest pain (12 sources)Chest pain, unspecified; Translations: [Other chest pain]Onset: 73-53-0824EbxzkslaIzcxfjrqwob deficiencies (20 sources)Vitamin D deficiency; Translations: [Vitamin D deficiency, unspecified]Onset: 501644-62-4960UnkjdvfRvawaasjhdhfyb (20 sources)Arthritis; Translations: [Unspecified osteoarthritis, unspecified site]Onset: 731279-81-5902ZwqhesjPkzdx acquired deformities (1 source)Spondylolisthesis; Translations: [Spondylolisthesis, site unspecified] Onset: 64-53-5138CrmejzdvKjhsh aftercare (1 source)Other mcc (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; Translations: [OTH USP CURRENT DRUG THERAPY]Onset: 30-97-6019MnnxuoelSxvtd bone disease and musculoskeletal deformities (3 sources)Segmental and somatic dysfunction; Translations: [Segmental and somatic dysfunction of head region]Onset: 11-11-1597MpsaczclLawgu bone disease and musculoskeletal deformities (7 sources)Cervical somatic pipmktrioie19-68-7514FultgtxrFevfp bone disease and musculoskeletal deformities (7 sources)Somatic dysfunction of head lihvnz77-57-2943RojxnrpfHximv bone disease and musculoskeletal deformities (7 sources)Somatic dysfunction of thoracic qdfdxa90-04-4409GuxlqwzkMnsyb circulatory disease (1 source)Raynaud's syndrome without gangrene; Translations: [Raynaud's syndrome without gangrene]Onset: 59-06-5599UmedlpsEeano connective tissue disease (14 sources)Disorder of oral soft lqsgkid05-86-1372EpfwoaitRhhrw connective tissue disease (1 source)Spasm; Translations: [Other muscle spasm]Onset: 02-76-3891Mnndbmmc Other connective tissue disease (4 sources)Muscle spasm of cervical muscle of dyke74-07-8506RhcoteahXgaxm connective tissue disease (3 sources)Muscle pain; Translations: [Myalgia, unspecified site]09-21-2024 EpisodicOther connective tissue disease (5 sources)Pain in both feet; Translations: [Bilateral foot pain]Onset: Other eye disorders (16 sources)Optic disc edema; 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]Onset: 193233-26-8921UxfnjigBioay gastrointestinal disorders (1 source)Other intestinal malabsorption; Translations: [Other intestinal malabsorption]Onset: 92-44-6867MdcraofFhfwf gastrointestinal disorders (14 sources)Intestinal malabsorption; Translations: [Intestinal malabsorption, unspecified]Onset: 928762-06-6127TtiqzlnPlxch gastrointestinal disorders (20 sources)Mass of coutznha62-43-3900MqqygupzUpnyk gastrointestinal disorders (8 sources)Cyst of vtxlohf18-74-9777UkmhmrguFvvtl injuries and conditions due to external causes (10 sources)Hematoma; Translations: [Other injury of unspecified body region, initial encounter]Onset: 478701-62-5390QyfdwzguUulnt lower respiratory disease (1 source)Cough; Translations: [Cough, unspecified]Onset: 50-97-5147Gikrocfm Other nervous system disorders (20 sources)Benign intracranial hypertension; Translations: [Benign intracranial hypertension]Onset: 01-92-0263AtxmszhUdpcg nervous system disorders (2 sources)Raised intracranial xftgqsev47-69-0240VplemtfDygve nervous system disorders (1 source)Benign intracranial hypertension; Translations: [Idiopathic intracranial hypertension]Onset: 92-67-4101CwddrqoFwimv nervous system disorders (16 sources)Ulnar neuropathy; 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 nerve, unspecified upper limb]Onset: 678699-20-1343QdcjqyvJhvfi nervous system disorders (17 sources)Chronic pain; Translations: [Other chronic pain]Onset: 01-31-2024 09-37-3387WefmjxsCkkfq nervous system disorders (20 sources)Chronic pain vvogbbdc01-66-6731MhhigxeGnfal nervous system disorders (11 sources)Difficulty walking; Translations: [Difficulty in walking, not elsewhere classified]Onset: 965289-28-2163MgvrivzIjzdh nervous system disorders (11 sources)Tarsal tunnel syndrome; Translations: [Tarsal tunnel syndrome, unspecified lower limb]Onset: 145809-93-4810TxvsmmyVgsia nervous system disorders (1 source)Postoperative pain ; Translations: [Other acute postprocedural pain] EpisodicOther nervous system disorders (1 source)Dysphasia; Translations: [Dysphasia]Onset: 52-40-2972HpraqqeiRuyof nervous system disorders (4 sources)Ataxia; Translations: [Ataxia, unspecified]89-44-3985TvpaehegOfemd nervous system disorders (20 sources)Paresthesia; Translations: [Paresthesia of skin]Onset: 01-31-2024 93-76-2446EeebxsipRjuzp nutritional; endocrine; and metabolic disorders (7 sources)Morbid obesity; Translations: [Morbid (severe) obesity due to excess calories]Onset: 296852-45-5797OhhagryAvcde nutritional; endocrine; and metabolic disorders (4 sources)Obesity; Translations: [Obesity, unspecified]Onset: 01-29-2022 95-86-6182LppohiuQvfyg nutritional; endocrine; and metabolic disorders (2 sources)Obese class I; Translations: [Body mass index (BMI) 30.0-30.9, adult] Onset: 83-20-1652EdfbkhnOlmuj nutritional; endocrine; and metabolic disorders (20 sources)Body mass index 30+ - obesity; Translations: [Obesity, unspecified] Onset: 498648-82-7901AbfdglnFoykm nutritional; endocrine; and metabolic disorders (1 source)Obesity caused by energy imbalance; Translations: [Other obesity due to excess calories]93-84-0581AdrtafePshza nutritional; endocrine; and metabolic disorders (1 source)Hypercalcemia; Translations: [Hypercalcemia]39-73-9289QmrcjxrQfloy nutritional; endocrine; and metabolic disorders (15 sources)Overweight; Translations: [Overweight]Onset: 92-43-3763UinqgzqoVabdd nutritional; endocrine; and metabolic disorders (20 sources)Body mass index 25-29 - overweight; Translations: [Overweight]Onset: 667185-51-2883NkfunoefVtpak skin disorders (1 source)Skin finding; Translations: [Excessive and redundant skin and subcutaneous tissue]EpisodicOther skin disorders (8 sources)Loss of hair; Translations: [Nonscarring hair loss, unspecified] 68-77-2805XemctptfQvxeigwstcr disorders (20 sources)Borderline personality disorder; Translations: [Borderline personality disorder]Onset: 398682-25-8023RhifbxhVlckatrqh by psychotropic agents (20 sources)Intentional benzodiazepine overdose; Translations: [Poisoning by benzodiazepines, intentional self-harm, initial encounter]23-00-7827Cwnajcxg Residual codes; unclassified (12 sources)Patient encounter status; Translations: [Encounter for procedure for purposes other than remedying health state, unspecified]EpisodicResidual codes; unclassified (4 sources)Procedure and treatment not carried out due to patient leaving prior to being seen by health care provider; Translations: [PROC AND TX NOT CARRIED OUT PT LEAVE]Onset: 09-07-1672AnmolzjaFndgerge codes; unclassified (1 source)Pelvic organ finding; Translations: [Acquired absence of both cervix and uterus]Onset: 12-93-6809BuwoumwbIyemcvppr-related disorders (20 sources)Smoker; Translations: [Nicotine dependence]Onset: 02-06-2022 02-36-7661LoypjfgBvjbdwy on above:Added secondary to documentation in Social History.Syncope (1 source)Syncope and collapse; Translations: [Syncope and collapse]Onset: 03-56-1615LtjahvjwXealqqwwghps (5 sources)History of clinical finding in subject; Translations: [History of nicotine use]Onset: 715219-92-6301Ncyqgrfvrobq (2 sources)Patient encounter status; Translations: [Preoperative testing] Unclassified (20 sources)History of bypass of stomachOnset: 925065-13-4808Nqumyvefjyup (1 source)CONTACT W/AND (SUSP) EXPOS COVID-19; Translations: [CONTACT W/AND (SUSP) EXPOS COVID-19]Onset: 38-95-3589Kvbqooemqvbo (3 sources)You may use alternating doses of ibuprofen (Motrin) 600 mg followed 3 hours later by 2 extra strength Tylenol's, followed 3 hours later by ibuprofen 600 mg. You may continue this repeating schedule for pain management.Viral infection (1 source)COVID-19; Translations: [COVID-19]Onset: 04-08-2022 Past or Other Problems Problem ClassificationProblemDateDocumented DateEpisodic/ChronicAbdominal hernia (7 sources)Hiatal hernia; Translations: [Diaphragmatic hernia without obstruction or gangrene] Resolved: 75-11-1643MbaoywcjZntstumh foot deformities (20 sources)Acquired bilateral pes planus; Translations: [Flat foot [pes planus] (acquired), right foot]Onset: 165394-04-1462KnilltrxHygvanmdezefqv/social admission (11 sources)Education and/or schooling finding; Translations: [Problems related to education and literacy, unspecified]Onset: 865210-63-3906Vpkfwtze Complications of surgical procedures or medical care (20 sources)Reaction to lumbar puncture; Translations: [Other reaction to spinal and lumbar puncture]Onset: 02-79-4219YwqoqtlsMsxqsbwkik and other anemia (20 sources)Iron deficiency anemia; Translations: [Iron deficiency anemia, unspecified]Onset: 871174-73-3195MpsllczeMngsrvu on above:noted in 09/16/2024 [facility] Records page 5. added per OP CDI policy.Diseases of mouth; excluding dental (4 sources)Lesion of oral mucosa; Translations: [Unspecified lesions of oral mucosa]Onset: 13-84-1425PzrnyspiCexyf of unknown origin (3 sources)Fever, unspecified; Translations: [FEVER UNSPECIFIED]Onset: 89-90-2562BkeyqfspEjsao and electrolyte disorders (6 sources)Dehydration; Translations: [Dehydration]Onset: 01-26-2021 Resolved: 22-13-4559UzzssewlDeswnqwhd disorders (6 sources)Excessive and frequent menstruation with irregular cycle; Translations: [Menorrhagia]Onset: 10-30-2022 Resolved: 56-06-8091WnebmcbGjyhrsmgrml deficiencies (16 sources)Iron deficiency; Translations: [Serum iron low]Onset: 05-27-2023 99-99-4172TojeibatVobqe complications of (20 sources)Poor growth affecting management; Translations: [Maternal care for other known or suspected poor growth, unspecified trimester, not applicable or unspecified]Onset: 07-03-2008 Resolved: 340832-63-9703UqkxjgrhBcfaj connective tissue disease (20 sources)Pain in both feet; Translations: [Pain in right foot]Onset: 134572-39-7226ZrlughjfPmplj connective tissue disease (20 sources)Plantar fasciitis; Translations: [Plantar fascial fibromatosis] Onset: 03-08-2024 Resolved: 476923-42-8838VjdxwctmPzigl connective tissue disease (20 sources)Muscle weakness; Translations: [Muscle weakness (generalized)]Onset: 574648-68-3758XbfeawhaKpgxd gastrointestinal disorders (20 sources)History of bypass of stomach; Translations: [Bariatric surgery status]Onset: 88-90-2260OlkizlamRichn gastrointestinal disorders (5 sources)Bariatric surgery status; Translations: [Bariatric surgery status] Onset: 44-40-7412JibssnkvYhoau gastrointestinal disorders (1 source)Constipation, unspecified; Translations: [CONSTIPATION UNSPECIFIED] Onset: 05-21-2365DtuylvghZwams gastrointestinal disorders (1 source)Other specified disorders of peritoneum; Translations: [OTHER SPEC DISORDERS PERITONEUM]Onset: 75-72-2775XdhngcmgRqdtd lower respiratory disease (20 sources)Dyspnea; Translations: [Shortness of breath]Onset: 08-08-2024 26-02-1727ZscdbxncXyjai lower respiratory disease (2 sources)Shortness of breath; Translations: [Shortness of breath]Onset: 94-52-5826UvzxlhrpPdftr nervous system disorders (16 sources)Numbness; Translations: [Anesthesia of skin]Onset: 01-31-2024 79-84-8125LnjhsdkjBrasw nervous system disorders (1 source)Ataxia, unspecified; Translations: [Ataxia, unspecified]Onset: 48-08-4530HnkspjlcSdqww non-traumatic joint disorders (11 sources)Sinus tarsi syndrome of right ankle; Translations: [Pain in right ankle and joints of right foot]Onset: 861737-15-1519UlnisfmjHdmzb nutritional; endocrine; and metabolic disorders (20 sources)Body mass index 40+ - severely obese; Translations: [Morbid (severe) obesity due to excess calories]Onset: 05-16-2020 Resolved: 50-51-5924QerdcbmPsqhk nutritional; endocrine; and metabolic disorders (20 sources)Overweight in adulthood with body mass index of 25 or more but less than 30; Translations: [Body mass index (BMI) 29.0-29.9, adult]Onset: 02-06-2022 EpisodicOther nutritional; endocrine; and metabolic disorders (1 source)Overweight; Translations: [Overweight]Onset: 85-23-7578GtbtwaijDhxbt nutritional; endocrine; and metabolic disorders (2 sources)Body mass index (BMI) 29.0-29.9, adult; Translations: [Body mass index (BMI) 29.0-29.9, adult]Onset: 88-43-1005CbwascfiKcgai screening for suspected conditions (not mental disorders or infectious disease) (3 sources)Mammography abnormal; Translations: [Other abnormal and inconclusive findings on diagnostic imagingof breast]Onset: 917943-50-2470LwcivoqlSmxrz upper respiratory infections (20 sources)Acute upper respiratory infection, unspecified; Translations: [Acute pharyngitis, unspecified]Onset: 60-84-4690YkasukwsDhqhyq media and related conditions (13 sources)Acute suppurative otitis media without spontaneous rupture of ear drum; Translations: [Acute suppurative otitis media without spontaneous rupture of ear drum, unspecified ear]Onset: 327291-85-0386JcctryvmJxdzdqqdnz disorders (not diabetes) (20 sources)Cyst of pancreas; Translations: [Cyst of pancreas]Onset: 08-13-2023 EpisodicPeripheral and visceral atherosclerosis (16 sources)Omental infarction; Translations: [Acute infarction of intestine, part and extent unspecified]Onset: 01-31-2021 Resolved: 83-28-2373DiyjvemaAqjyamwuigj and intestinal abscess (4 sources)Abdominal abscess; Translations: [Peritoneal abscess]Onset: 01-30-2021 Resolved: 38-80-6006NjugxfknOujiwiue codes; unclassified (20 sources)History of operative procedure on foot; Translations: [Other specified postprocedural states]Onset: 69-70-3690VsxvwzxbXevnjmuu codes; unclassified (20 sources)Family history of malignant neoplasm of pancreas; Translations: [Family history of malignant neoplasm of digestive organs]Onset: 03-08-2024 37-63-3704EpnnvqpxRpujtvrs codes; unclassified (20 sources)Family history of cancer; Translations: [Family history of malignant neoplasm, unspecified]Onset: 900584-36-5611PewreqcoMwdfbbvf codes; unclassified (18 sources)Family history of ischemic heart disease; Translations: [Family history of ischemic heart disease and other diseases of the circulatory system] Onset: 571415-55-5354OzfnhcgxRtyyraxk codes; unclassified (4 sources)Family history of ischemic heart disease and other diseases of the circulatory system; Translations: [Family history of ischemic heart disease and other diseases of the circulatory system]Onset: 89-17-3068YzfplygiXzfpdcnpl and history of mental health and substance abuse codes (20 sources)History of clinical finding in subject; Translations: [Personal history of nicotine dependence]Onset: 952222-45-9092LpwylcwpYstcrwakapq; intervertebral disc disorders; other back problems (15 sources)Backache; Translations: [Dorsalgia, unspecified]Onset: 06-13-2002 EpisodicSprains and strains (17 sources)Injury of muscle and tendon at ankle and foot level; Translations: [Strain of unspecified muscle and tendon at ankle and foot level, left foot, initial encounter]Onset: 01-46-3577HxjgojcuItrfpqb and intentional self- inflicted injury (4 sources)Suicidal ideations; Translations: [SUICIDAL IDEATIONS]Onset: 81-69-3581DjdlimkxPuxgsbizrkix (20 sources)PregnancyOnset: 12-22-2006 Resolved: 102772-15-2255Fhyvmvdlvtjt (1 source)Contact with and (suspected) exposure to covid-19 Z20.822Unclassified (4 sources)Cyst of abdomen; Translations: [Cyst of abdomen]78-65-6911Gdzir infection (1 source)Viral infection, unspecified; Translations: [VIRAL INFECTION UNSPECIFIED]Onset: 98-55-6980Lgzxyaqz Results Test NameValueInterpretationReference RangeFacilityHeart and Vascular Office/Clinic Noteon 64-86-0404Kjpzv and Vascular Office/Clinic NoteHeart and Vascular Office/Clinic [...] theyapproved an at home study however [facility] does not currently have at home sleep study equipment. She states that [facility] was suppose to refer her to [facility] and her PCP was also suppose to send a referral to [facility] but they have not received anything. Review [...] approved an at home study however [facility] does not currently have at home sleep study equipment. Will send referral to [facility]. Patient will follow up in 6 months or sooner if needed. Arielle Ware personally transcribed this note for on 07/21/25 at 1039. Follow-up With When Contact Information Nata BHAKTA, Jak W, CAR Within 6 months [address] [place] [address]- Additional Instructions: Problem List/Past Medical History Ongoing [...] History of tubal l (more content not included)...Doctors HospitalComment on above:Result Comment: Electronically Signed By: Jak Peace MD W\.br\Date and Time Signed: 07/21/25 11:45EST\.br\Electronically Co- Signed By: Roxana Shipman\.br\Date and Time Co-Signed: 07/21/25 10:40 ESTOphthalmic OCT panelon 27-53-9370Zbabq Eye To assess optic nerve function and for use in future follow-up. Reliability: good and adequate. Left Eye To assess optic nerve function and for use in future follow-up. Reliability: good and adequate.[facility] HealthcareRadiology Study observation (narrative)[facility] HealthcarePerimetry studyon 49-85-5486VL[facility] HealthcareRadiology Study observation (narrative)[facility] HealthcareAlanine aminotransferase [Enzymatic activity/volume] in Serum or PlasmaOrdered By: Alexis Helm on 06-29-2824OJQ [Catalytic activity/Vol]13 U/L7-52Select [facility] Southeast OhioComment on above:Performed By: #### CMP, CK, HS TROP, CBC #### [facility] [address] [place] [id number] USAAlbumin [Mass/volume] in Serum or Plasma by Bromocresol green (BCG) dye binding methoOrdered By: Alexis Helm on 55-25-0394Flgefgm BCG dye [Mass/Vol]4.1 g/dL3.5-5.7FLima Memorial HospitalAlkaline phosphatase [Enzymatic activity/volume] in Serum or PlasmaOrdered By: Alexis Helm on 79-62-1641DTS [Catalytic activity/Vol]59 U/M37-257UupfhbbfsSelect Medical Specialty Hospital - Southeast OhioComment on above:Performed By: #### CMP, CK, HS TROP, CBC #### [facility] [address] [place] [address] USAAppearance of UrineOrdered By: Alexis Helm on 06-29-2025 Appearance (U)ClearClearFLima Memorial HospitalComment on above:Order Comment: Name Collection Type:: Clean-Voided MidstreamPerformed By: #### CMP, CK, HS TROP, CBC #### [place] [address] USAAspartate aminotransferase [Enzymatic activity/volume] in Serum or PlasmaOrdered By: Alexis Helm on 04-23-8483OAB [Catalytic activity/Vol] 18 U/T26-06FirjwrsqjSelect Medical Specialty Hospital - Southeast OhioComment on above:Performed By: #### CMP, CK, HS TROP, CBC #### [place] [address] USABasophils [#/volume] in Blood by Automated countOrdered By: Alexis Helm on 88-65-2347Ieowrblxn (Bld) [#/Vol]0.1 10*3/uL0.0-0.2FLima Memorial HospitalComment on above:Result Comment: PERFORMED BY: [place] [address] PATHOLOGIST EDGING SUPERVISOR BRENTON GOLD M.D.Performed By: #### CMP, CK, HS TROP, CBC #### [place] [address] USABasophils/100 leukocytes in Blood by Automated count Ordered By: Alexis Helm on 15-76-3175Lgescvach/100 WBC (Bld)1.0 %.[facility] - Southeast OhioComment on above:Performed By: #### CMP, CK, HS TROP, CBC #### [place] [address] USABilirubin Test strip Ql (U)Ordered By: Alexis Helm on 70-55-6023Fbzdbxsfn Ql (U)NegativeNegativeSelect Medical Specialty Hospital - Southeast [place] Bilirubin.total [Mass/volume] in Serum or PlasmaOrdered By: Alexis Helm on 94-77-0122Riooqwmze [Mass/Vol]0.4 mg/dL0.3-1.0[facility] Comment on above:Performed By: #### CMP, CK, HS TROP, CBC #### [address] [address] USACT head/brain wo conon 63-83-5374EB head/brain wo con [facility] Main [place] [address] [place] [address] CT Scan Report Signed Patient: Shazia Chou MR#: [id number] : 1990 Acct:[id number] Age/Sex: 34 / F ADM Date: 06/29/25 Loc: ER Room: Type: PRE ER Attending Dr: Copies to: Alexis Helm MD Ordering Provider: Alexis Hlem MD Date of Service: 06/29/25 CT/CT head/brain [...] Jr., D.O. 06/29/2025 1:29 PM Dictation Location: [place] [address] Transcribed By: [facility] 06/29/25 1329 Dictated By: Raoul Newton Jr, DO 06/29/25 1327 Signed By: 06/29/25 1329NoshadiAdventHealth Palm Harbor ER Physician GroupCalcium [Mass/volume] in Serum or PlasmaOrdered By: Aleixs Helm on 46-94-9131Flvfemi [Mass/Vol]9.0 mg/dL8.6-10.3 [facility] - Southeast OhioComment on above:Performed By: #### CMP, CK, HS TROP, CBC #### [facility] [address] [place] [address] USACarbon dioxide, total [Moles/volume] in Serum or Plasma Ordered By: Alexis Helm on 73-60-2133IV4 [Moles/Vol]24.8 mmol/L21.0-31.0[facility] - Southeast OhioComment on above:Performed By: #### CMP, CK, HS TROP, CBC #### [facility] [address] [place] [address] USAChloride [Moles/volume] in Serum or PlasmaOrdered By: Alexis Helm on 49-84-9638Cqsqhzmf [Moles/Vol]108 mmol/PZoec85-958HxuxiycfbSelect Medical Specialty Hospital - Southeast OhioComment on above:Performed By: #### CMP, CK, HS TROP, CBC #### [place] [address] USAColor of Urine by AutoOrdered By: Alexis Helm on 06-29-2025 Color (U)Light-yellowYellowSelect Medical Specialty Hospital - Southeast OhioComment on above: Order Comment: Name Collection Type:: Clean-Voided MidstreamPerformed By: #### CMP, CK, HS TROP, CBC #### [place] [address] USAComplete Blood Count Auto Diffon 14-56-5476Wacq Corpuscular HGB Conc34.2 g/jLBfztww25.0-35.0The [facility] Physician GroupComment on above:Performed By: #### CMP, CK, HS TROP, CBC #### [place] [address] USAMonocytes/100 WBC (Bld)17.75 %Normal0.00-20.00The [facility] Physician GroupComment on above:Performed By: #### CMP, CK, HS TROP, CBC #### [facility] [address] [place] [address] USANRBC%0.2 /100{WBC}Normal0-0.5The [facility] Physician Group Comment on above:Performed By: #### CMP, CK, HS TROP, CBC #### [place] [address] USAWhite Blood Count7.0 [CFU]/mLNormal3.8-11.6The [facility] Physician GroupComment on above:Performed By: #### CMP, CK, HS TROP, CBC #### [place] [address] USAComprehensive Metabolic Panelon 40-09-3289Namtbqp [Mass/Vol]4.1 g/dLNormal3.5-5.7The [facility] Physician GroupComment on above: Performed By: #### CMP, CK, HS TROP, CBC #### [place] [address] USACreatinine Clr Calc Fwsskagj149.30NormalThBingham Memorial Hospital Physician [facility]. Dominic HospitalComment on above:Result Comment: PERFORMED BY: [place] [address] PATHOLOGIST EDGING SUPERVISOR BRENTON GOLD M.D.Performed By: #### CMP, CK, HS TROP, CBC #### [place] [address] USAGFR/1.73 sq M.predicted MDRD (S/P/Bld) [Vol rate/Area] mL/min/{1.73_m2}NormalThe [facility] Physician [facility] Dominic HospitalComment on above:Performed By: #### CMP, CK, HS TROP, CBC #### [place] [address] USACreatine kinase [Enzymatic activity/volume] in Serum or PlasmaOrdered By: Alexis Helm on 90-03-5183BU [Catalytic activity/Vol]79 U/L [facility] - Southeast OhioComment on above:Performed By: #### CMP, CK, HS TROP, CBC #### [facility] [address] [place] [address] USACreatinine [Mass/volume] in Serum or PlasmaOrdered By: Alexis Helm on 36-71-1924Odcqptuwsi [Mass/Vol]0.60 mg/dL0.60-1.20[facility] - Southeast OhioComment on above:Performed By: #### CMP, CK, HS TROP, CBC #### [place] [address] USAECG 12 lead ECGon 36-13-8981MSZ 12 lead [facility] Main [place] [id number] Electrocardiograph Report Signed Patient: Shazia Chou MR#: [id number] : 1990 Acct:[id number] Age/Sex: 34 / F ADM Date: 06/29/25 Loc: ER Room: Type: [facility] ER Attending Dr: Ordering Provider: Alexis Helm [...] MUS Signed By Alexis Helm MD 06/30/[address] [place] [address] [facility] HospitalEC 12 lead [facility] Main [place] [id number] Electrocardiograph Report Signed Patient: Shazia Chou MR#: [id number] : 1990 Acct:[id number] Age/Sex: 34 / F ADM Date: 06/29/25 Loc: ER Room: Type: [facility] ER Attending Dr: Ordering Provider: Alexis Helm [...] MUS Signed By Alexis Helm MD 06/29/[address] [place] [address] Physician GroupEosinophils [#/volume] in Blood by Automated countOrdered By: Alexis Helm on 33-98-4728Gkbuoycfbfn (Bld) [#/Vol]0.2 10*3/uL0.0-0.45[facility] Hospital - Southeast OhioComment on above:Performed By: #### CMP, CK, HS TROP, CBC #### [place] [address] USAEosinophils/100 leukocytes in Blood by Automated count Ordered By: Alexis Helm on 29-29-6387Coahhajgcef/100 WBC (Bld)2.2 %.[facility] - Southeast OhioComment on above:Performed By: #### CMP, CK, HS TROP, CBC #### [facility] [address] [place] [address] USAErythrocyte distribution width [Ratio] by Automated count Ordered By: Alexis Helm on 56-91-4613Hefgvtorxkh distribution width (RBC) [Ratio] 15.7 %High11.9-15.3FLima Memorial HospitalComment on above:Performed By: #### CMP, CK, HS TROP, CBC #### [facility] [address] [place], [place] [address] USAErythrocytes [#/volume] in Blood by Automated countOrdered By: Alexis Helm on 10-59-8462OUK (Bld) [#/Vol]3.75 10*6/uL3.60-5.00[facility] Southeast OhioComment on above:Performed By: #### CMP, CK, HS TROP, CBC #### [facility] [address] [place], [place] [address] USAGlomerular filtration rate [Volume Rate/Area] in Serum, Plasma or Blood by CreatinineOrdered By: Alexis Helm on 53-88-1528Cqjasqowzc filtration rate [Volume Rate/Area] in Serum, Plasma or Blood by Creatinine> 60.0 mL/MinSelect Medical Specialty Hospital - Southeast OhioGlucose [Mass/volume] in Serum or Plasma Ordered By: Alexis Helm on 07-24-3804Ewjzmcr [Mass/Vol]85 mg/qF85-623CezbfooelSelect Medical Specialty Hospital - Southeast OhioComment on above:ADA recommended reference rangeRandom Glucose Reference [...] #### CMP, CK, HS TROP, CBC #### [facility] [address] [place] [id number] USAGlucose [Mass/volume] in Urine by Test stripOrdered By: Alexis Helm on 27-41-0962Dmxnvml Test strip (U) [Mass/Vol]Normal mg/dLNormal [facility] Southeast OhioHematocrit [Volume Fraction] of Blood by Automated countOrdered By: Alexis Helm on 92-78-0819Rsdqexsgcj (Bld) [Volume fraction]35.6 %34.0-46.4FLima Memorial HospitalComment on above: Performed By: #### CMP, CK, HS TROP, CBC #### [facility] [address] [place] [id number] USAHemoglobin Test strip Ql (U)Ordered By: Alexis Helm on 39-28-4354Wasjhpjyei Ql (U)NegativeNegRegency Hospital Toledo Hemoglobin [Mass/volume] in BloodOrdered By: Alexis Helm on 06-76-1403Mzwyuunhwl (Bld) [Mass/Vol]12.2 g/dL11.8-15.4FLima Memorial HospitalComment on above:Performed By: #### CMP, CK, HS TROP, CBC #### [facility] [address] [place] [id number] USAKetones [Presence] in Urine by Test stripOrdered By: Alexis Helm on 20-80-1116Zclqdgm Ql (U)NegativeNegRegency Hospital ToledoComment on above:Order Comment: Name Collection Type:: Clean-Voided MidstreamPerformed By: #### CMP, CK, HS TROP, CBC #### [facility] [address] [place] [address] USALeukocyte esterase [Presence] in Urine by Test strip Ordered By: Alexis Helm on 76-38-4035Imgpubnhm esterase Test strip Ql (U)Negative NegativeSelect Medical Specialty Hospital - Southeast OhioComment on above:Order Comment: Name Collection Type:: Clean-Voided MidstreamPerformed By: #### CMP, CK, HS TROP, CBC #### [facility] [address] [place] [address] USALeukocytes [#/volume] corrected for nucleated erythrocytes in Blood by Automated counOrdered By: Alexis Helm on 92-06-5755YTJ corrected for nucl RBC Auto (Bld) [#/Vol]7.0 10*3/uL3.8-11.6FLima Memorial Hospital Leukocytes [#/volume] in Blood by Automated countOrdered By: Alexis Helm on 85-51-6623FCX (Bld) [#/Vol]7.0 10*3/uL3.8-11.6FLima Memorial Hospital Comment on above:Performed By: #### CMP, CK, HS TROP, CBC #### [facility] [address] [place] [address] USALymphocytes [#/volume] in Blood by Automated countOrdered By: Alexis Helm on 37-32-8824Bkjmykzawbi (Bld) [#/Vol]1.9 10*3/uL1.00-4.8 [facility] Southeast OhioComment on above:Performed By: #### CMP, CK, HS TROP, CBC #### [facility] [address] [place] [id number] USALymphocytes/100 leukocytes in Blood by Automated count Ordered By: Alexis Helm on 02-09-7629Mweacwdlbey/100 WBC (Bld)27.8 %.[facility] - Southeast OhioComment on above:Performed By: #### CMP, CK, HS TROP, CBC #### [facility] [address] [place] [address] USAMCH [Entitic mass] by Automated countOrdered By: Alexis Helm on 43-52-9987HNC (RBC) [Entitic mass]32.4 pg24.7-34.3FLima Memorial HospitalComment on above:Performed By: #### CMP, CK, HS TROP, CBC #### [facility] [address] [place] [address] USAHC Auto (RBC) [Mass/Vol]Ordered By: Alexis Helm on 34-29-2596UWYT (RBC) [Mass/Vol]34.2 g/dL32.0-35.0[facility] Hospital - Southeast OhioMCV [Entitic volume] by Automated countOrdered By: Alexis Helm on 93-14-7296UWE (RBC) [Entitic vol]94.9 gX13-414AiklmnabjSelect Medical Specialty Hospital - Southeast [place] Comment on above:Performed By: #### CMP, CK, HS TROP, CBC #### [place] [address] USAMonocyte distribution width [Entitic volume] in Blood by AutomatedOrdered By: Alexis Helm on 57-59-4849Krmnrdeh distribution width Auto (Bld) [Entitic vol]17.75 %0.00-20.00[facility] Southeast OhioMonocytes [#/volume] in Blood by Automated countOrdered By: Alexis Helm on 06-29-2025 Monocytes (Bld) [#/Vol]0.6 10*3/uL0.0-0.8[facility] Comment on above:Performed By: #### CMP, CK, HS TROP, CBC #### [facility] [address] [place] [address] USAMonocytes/100 leukocytes in Blood by Automated count Ordered By: Alexis Helm on 18-15-0698Ycpebotdp/100 WBC (Bld)8.4 %.[facility] - Southeast OhioComment on above:Performed By: #### CMP, CK, HS TROP, CBC #### [place] [address] USANeutrophils [#/volume] in Blood by Automated countOrdered By: Alexis Helm on 19-35-5863Zdwkuhcdoqy (Bld) [#/Vol]4.2 10*3/uL1.8-7.7FLima Memorial HospitalComment on above:Performed By: #### CMP, CK, HS TROP, CBC #### [facility] [address] [place] [address] USANeutrophils/100 leukocytes in Blood by Automated count Ordered By: Alexis Helm on 24-47-9129Fwjwxqgbbyb/100 WBC (Bld)60.6 %.[facility] - Southeast OhioComment on above:Performed By: #### CMP, CK, HS TROP, CBC #### [facility] [address] [place] [address] USANitrite Test strip Ql (U)Ordered By: Alexis Helm on 83-66-5569Swiafdg Ql (U)NegativeNegativeSelect Medical Specialty Hospital - Southeast OhioNo Panel InformationOrdered By: Alexis Helm on 05-16-4163Nrdmkduj Creatinine Clearance (Gcyq916.30[facility] Southeast OhioNucleated erythrocytes [Presence] in Blood by Automated countOrdered By: Alexis Helm on 06-29-2025 Nucleated RBC Auto Ql (Bld)0.2 /100{WBC}0-0.5FLima Memorial Hospital Platelet mean volume [Entitic volume] in Blood by Automated countOrdered By: Alexis Helm on 83-55-9562Fsasyidq mean volume (Bld) [Entitic vol]8.8 fL6.3-10.7 [facility] Southeast OhioComment on above:Performed By: #### CMP, CK, HS TROP, CBC #### [facility] [address] [place] [address] USAPlatelets [#/volume] in Blood by Automated countOrdered By: Alexis Helm on 72-03-7283Cpwxyvlkq (Bld) [#/Vol]287 10*3/gO785-931HhjxpnzxqSelect Medical Specialty Hospital - Southeast OhioComment on above:Performed By: #### CMP, CK, HS TROP, CBC #### [facility] [address] [place] [address] USAPotassium [Moles/volume] in Serum or PlasmaOrdered By: Alexis Helm on 27-06-1486Yjhwkhmnb [Moles/Vol]3.5 mmol/L3.5-5.1FLima Memorial HospitalComment on above:Performed By: #### CMP, CK, HS TROP, CBC #### [facility] [address] [place] [address] USAProtein Test strip (U) [Mass/Vol]Ordered By: Alexis Helm on 55-04-2628Scdpiqc (U) [Mass/Vol]NegativeNegativeSelect Medical Specialty Hospital - Southeast OhioProtein [Mass/volume] in Serum or PlasmaOrdered By: Alexis Helm on 14-05-3473Urfazmq [Mass/Vol]6.6 g/dL6.4-8.9[facility] Comment on above:Performed By: #### CMP, CK, HS TROP, CBC #### [facility] [address] [place] [address] USASerum globulin measurement by calculation (mass/volume) Ordered By: Alexis Helm on 04-44-4783Kgylsshx (S) [Mass/Vol]2.5 g/dLSelect Medical Specialty Hospital - Southeast OhioComment on above:Performed By: #### CMP, CK, HS TROP, CBC #### [place] [address] USASerum or plasma albumin/globulin mass ratioOrdered By: Alexis Helm on 72-53-9119Makcpaj/Globulin [Mass ratio]1.6 {ratio}[facility] Southeast OhioComment on above:Performed By: #### CMP, CK, HS TROP, CBC #### [place] [address] USASerum or plasma anion gap determinationOrdered By: Alexis Helm on 71-05-4178Xrrnp gap [Moles/Vol]9.7 mmol/L6.0-15.0[facility] Southeast OhioComment on above:Performed By: #### CMP, CK, HS TROP, CBC #### [facility] [address] [place] [address] USASodium [Moles/volume] in Serum or PlasmaOrdered By: Alexis Helm on 69-88-0227Nqiryn [Moles/Vol]139 mmol/U432-928WgcagrqusSelect Medical Specialty Hospital - Southeast OhioComment on above:Performed By: #### CMP, CK, HS TROP, CBC #### [place] [id number] USASpecific gravity Test strip (U) [Rel density]Ordered By: Alexis Helm on 93-45-5875Wbjlmdwb gravity (U) [Rel density]1.0071.001-1.030 [facility] Southeast OhioTroponin I High Sensitivityon 06-29-2025 Troponin I High Sensitivity<9Xgxtfq6-53Pqq [facility] Physician GroupComment on above:Result Comment: The Troponin units of report have been changed to meet the Chest Pain Accreditation requirement, element EC5.M1l2. Troponin units are changed from pg/ml to ng/L. Also, the decimal is removed and results are in whole numbers. PERFORMED BY: [place] [address] PATHOLOGIST EDGING SUPERVISOR BRENTON GOLD M.D.Performed By: #### CMP, CK, HS TROP, CBC #### [place] [address] USATroponin I.cardiac [Mass/volume] in Serum or Plasma by Detection limit <= 0.01 ng/mLOrdered By: Alexis Helm on 42-09-3381Aaygeobs I.cardiac DL <= 0.01 ng/mL [Mass/Vol]< 3 ng/LSelect Medical Specialty Hospital - Southeast OhioComment on above:The Troponin units of report have been changed to meet the Chest Pain Accreditation requirement, element EC5.M1l2. Troponin units are changed from pg/ml to ng/L. Also, the decimal is removed and results are in whole numbers.Urea nitrogen [Mass/volume] in Serum or PlasmaOrdered By: Alexis Helm on 79-40-3397Gphg nitrogen [Mass/Vol]8 mg/dL04-07[facility] Southeast OhioComment on above:Performed By: #### CMP, CK, HS TROP, CBC #### [place] [address] USAUrinalysison 62-04-4134Celsyntjf,UrineNegativeNormal NegativeThe [facility] Physician GroupComment on above:Order Comment: Name Collection Type:: Clean-Voided MidstreamPerformed By: #### CMP, CK, HS TROP, CBC #### [place] [address] USAGlucose Ql (U)NormalNormalNormAdventHealth Palm Harbor ER Physician GroupComment on above:Order Comment: Name Collection Type:: Clean-Voided MidstreamPerformed By: #### CMP, CK, HS TROP, CBC #### [place] [address] USANitrite,UrineNegativeNormalNegativeThe [facility] Physician GroupComment on above:Order Comment: Name Collection Type:: Clean-Voided MidstreamPerformed By: #### CMP, CK, HS TROP, CBC #### [place] [address] USAOccult Blood,UrineNegativeNormalNegativeThe [facility] Physician GroupComment on above:Order Comment: Name Collection Type:: Clean- Voided MidstreamResult Comment: PERFORMED BY: [place] [address] PATHOLOGIST EDGING SUPERVISOR BRENTON GOLD M.D.Performed By: #### CMP, CK, HS TROP, CBC #### [place] [address] USAProtein,UrineNegativeNormalNegativeCoral Gables Hospital Physician GroupComment on above:Order Comment: Name Collection Type:: Clean-Voided MidstreamPerformed By: #### CMP, CK, HS TROP, CBC #### [place] [address] USASpecificy Clifford,Urine1.190Xljpxs3.001-1.030The [facility] Physician GroupComment on above:Order Comment: Name Collection Type:: Clean- Voided MidstreamPerformed By: #### CMP, CK, HS TROP, CBC #### [place] [address] USAUrobilinogen,UrineNormalNormalNormAdventHealth Palm Harbor ER Physician GroupComment on above:Order Comment: Name Collection Type:: Clean- Voided MidstreamPerformed By: #### CMP, CK, HS TROP, CBC #### [place] [address] USAUrobilinogen Test strip (U) [Mass/Vol]Ordered By: Alexis Helm on 35-70-7079Cmvhewnhylek (U) [Mass/Vol]Normal mg/dLNormalSelect Medical Specialty Hospital - Southeast OhioX-ray reportOrdered By: Raoul Newton on 06-29-2025 [facility] Main [address] [address] XRay Report Signed Patient: Shazia Chou MR#: [id number] : 1990 Acct:[id number] Age/Sex: 34 / F ADM Date: Loc: [...] Jr., D.O. 06/29/2025 1:26 PM Dictation Location: [place] [address] Transcribed By: [facility] 06/29/25 1326 Dictated By: Raoul Newton Jr, DO 06/29/25 1326 Signed By: 06/29/25 1326 [facility] Southeast OhioXR chest 1V portableon 91-11-1688JV chest 1V portableSYCAMORE MEDICAL CENTER Main [address] [address] XRay Report Signed Patient: Shazia Chou MR#: [id number] : 1990 Acct:[id number] Age/Sex: 34 / F ADM Date: 06/29/25 [...] FINDINGS Impression dictated by: Raoul Newton Jr., DCandace 06/29/2025 1:26 PM Dictation Location: [facility] Transcribed By: [facility] 06/29/251325 Dictated By: Raoul Newton Jr, DO 06/29/251325 Signed By: 06/29/[address] [place] [address] Physician GrouppH of Urine by Test stripOrdered By: Alexis Helm on 60-52-4673qY (U)7.0 [pH]5.0-9.0[facility] Southeast OhioComment on above:Order Comment: Name Collection Type:: Clean-Voided MidstreamPerformed By: #### CMP, CK, HS TROP, CBC #### [facility] [address] 05-30-2025L Specimen: [id number] Received: 05/30/25 Status: OKAdair Holt Num: [id number] Spec Type: Surgical Subm Dr: Aaliyah Francis DO Tissues: A Breast Lumpectmy/Mass - Requiring Micros Eval of Margins (L BREAST TISSUE AN Procedures: HE/18, Gross/Micro L5 Age/ Patient Sex Location Account Attending Physician Shazia Chou 34/F [place] [id number] Aaliyah Francis, DO SPEC NUM: [id number] RECD: 05/30/25 STATUS: FABBY HOLT NUM: [id number] JUAN: 05/30/[address] [facility] [address]: Aaliyah Francis DO ENTERED: 05/30/[address]: LENCHO TYPE: Surgical DEPT: S ENTERED BY: [id number] RECV BY: [id number] ORDERED: HE/18, Gross/Micro L5 ORDERED: HE/18, Gross/Micro [...] with ink as follows: Superior-Red Inferior-Blue Medial-Yellow Lateral-Squires Anterior-Green Posterior-Black The lumpectomy is 4 cm [...] that is transferred to nuclear medicine. Specimen: [id number] Received: 05/30/25 Status: FABBY Zaldivarsteven Num: [id number] Spec Type: Surgical Subm Dr: Aaliyah Francis, DO Tissues: A Breast Lumpectmy/Mass - Requiring Micros Eval of Margins (L BREAST TISSUE AN Procedures: , Gross/Micro L5 Patient: Shazia Chou [id number] (Continued) Specimen: [id number] Received: 05/30/25 (Continued) Gross Description (Continued) Signed (signature on file) Terry Quintanilla MD 05/31/25 1332 Specimen: [id number] Received: 05/30/25 Status: FABBY Holt Num: [id number] Spec Type: Surgical Subm Dr: Aaliyah Francis DO Tissues: A Breast Lumpectmy/Mass - Requiring Micros Eval of Margins (L BREAST TISSUE AN Procedures: , Gross/Micro L5 Patient: Linda Choudion Bach [id number] (Continued) Specimen: [id number] Received: 05/30/25 (Continued) Gross Description (Continued) The [...] densely fibrous area A (more content not included)...[facility] 12-44-3404HK surgical specimen [facility] [address] [place] [address] Mammography Report Signed Patient: Shazia Chou MR#: [id number] : 1990 Acct:[id number] Age/Sex: 34 / F Adm Date: 05/30/25 Loc: [place] Room: Type: [facility] Attending Dr: Aaliyah Francis DO Ordering Provider: Aaliyah Francis DO Date of Service: 05/30/25 Procedure(s): MM surgical specimen LT Accession Number(s): ([id number]) MM/MM surgical specimen LT: POST LUMPECTOMY Copies to: Jennie Landrum DO CLINICAL INFORMATION: [Left] breast lumpectomy. SPECIMEN RADIOGRAPH: A single radiograph of the [left] breast specimen showed a metallic marking clip and radioiodine seed within the specimen. The images were reviewed by the attending physician during the procedure. Impression dictated by: Denny Escalante M.D. 05/30/2025 2:10 PM Dictation Location: [place] [address] Dictated By: Denny Escalante MD 05/30/25 1408 Signed By: 05/30/25 1410[facility]US breast needle loc [facility] 73-44-5831BZ breast needle loc [facility] Main [place] [id number] Ultrasound Report Signed Patient: Shazia Chou MR#: [id number] : 1990 Acct:[id number] Age/Sex: 34 / F ADM Date: 05/30/25 Loc: [place] Room: Type: [facility] Attending Dr: Aaliyah Francis DO Ordering Provider: Aaliyah Francis DO Date of Service: 05/29/25 US/US breast needle loc LT: LEFT U/S GUIDED RADIOACTIVE SEED LOC ([id number]) MM/MM diagnostic mammo LT w/CAD: POST U/S [...] Hadley M.D. 05/29/2025 11:38 AM Dictation Location: [facility] Tech: Molly Price Transcribed By: [facility] 05/29/25 1138 Dictated By: Clinton Hadley DO 05/29/25 1131 Signed By: 05/29/25 1138[facility] GroupUS breast needle loc [facility] Main [address] [address] Ultrasound Report Signed Patient: Shazia Chou MR#: [id number] : 1990 Acct:[id number] Age/Sex: 34 / F ADM Date: 05/04/25 Loc: [place] Room: Type: [facility] Attending Dr: Aaliyah Francis DO Ordering Provider: Aaliyah Francis DO Date of Service: 05/29/25 US/US breast needle loc LT: LEFT U/S GUIDED RADIOACTIVE SEED LOC ([id number]) MM/MM diagnostic mammo LT w/CAD: POST U/S [...] Hadley M.D. 05/29/2025 11:38 AM Dictation Location: [facility] Tech: Molly Price Transcribed By: MARKY 05/29/25 1138 Dictated By: Clinton Hadley DO 05/29/25 1131 Signed By: 05/29/25 1138[facility] GroupHeart and Vascular Office/Clinic Noteon 36-34-4473Ahmwd and Vascular Office/Clinic NoteHeart and Vascular Office/Clinic [...] Jak Mesa, CAR Within 3 months [address] [place] [address]- Additional Instructions: Jak Peace MD, CAR Within 3 months [address] [place] [address]- Additional Instructions: Problem List/Past Medical [...] work excuse, 0 Allergies (more content not included)...Doctors HospitalComment on above: Result Comment: Electronically Signed By: Jak Peace MD\.br\Date and Time Signed: 04/27/25 15:42EDT\.br\Electronically Co-Signed By: Roxana Shipman\.br\Date and Time Co-Signed: 04/27/25 15:40 EDTMM diagnostic mammo LT w/CADon 95-70-1717IR [facility] Main [place] [address] [place] [address] Ultrasound Report Signed Patient: Shazia Chou MR#: [id number] : 1990 Acct:[id number] Age/Sex: 34 / F ADM Date: 04/26/25 Loc: [place] Room: [facility] Attending Dr: Aaliyah Francis DO Ordering Provider: Aaliyah Francis DO Date of Service: 04/26/25 MM/MM diagnostic mammo LT w/CAD: follow up for Left breast Upper outer quadrant ([id number]) US/US breast LT limited: follow with mamm [...] Escalante M.D. 04/26/2025 10:15 AM Dictation Location: [facility] Tech: Shazia Vaughn Transcribed By: MARKY 04/26/25 1015 Dictated By: Denny Escalante MD 04/26/25 1009 Signed By: 04/26/25 1015[facility] Myocardial Spect Rest/Stress 1 Dayon 94-96-2958FV Myocardial Spect Rest/Stress 1 DayExam Date/Time: 04/17/2025 11:57 EDT Reason for Exam: R00.2;Chest pain Report [address] [address] Nuclear Stress Report Name: SHAZIA CHOU Study Date: 04/17/2025 08:00 AM Patient Location: [facility] : 1990 (M/d/yyyy) Gender: Female Age: 34 yrs Ethnicity: T Reason For Study: R00.2;Chest pain Ordering Physician: Jak Peace Referring Physician: Jak Peace Protocol 99989 Pharmacologic Lexiscan stress with Isotope. Study Protocol: [...] Signed by: Catalino Vaca MD Transcribed by: [facility] Technologist: [facility]. pyogenes DNA JOSÉ MIGUEL+probe Nom (Unsp spec)on 87-90-2287Ciiryxykoddhll and review of laboratory resultsNormalNOMS HealthcareRESULTNegativeNegativeNOMS HealthcareNOMS HealthcareEvent Monitoron 14-38-6449Wcovx MonitorEvent Monitor TWO-WEEK EVENT MONITOR DATES OF [...] rhythm. READ BY: terrell Arredondo Dictated: 03/10/2025 [id number] Transcribed: 03/14/2025 cc:*Jak Peace M.D.Doctors HospitalComment on above:Result Comment: Electronically Signed By: Catalino Vaca MD\.br\Date and Time Signed: 03/15/25 07:49 EDTMain OR Intraoperative Recordon 73-81-1398Yklk OR Intraoperative RecordMain OR Intraoperative Record IntraOp Document Type FTPM Summary Primary Physician: Babar Mayers DO Finalized Date/Time: 03/03/25 08:45:29 Pt. Name: SHAZIA CHOU Valentina/Sex: 1990 Female Med Rec #: [id number] Physician: Babar Mayers DO Financial #: [id number] Pt. Type: P Room/Bed: / Admit/Disch: 03/03/25 [...] Lulu Bellamy Role Performed Surgeon - Primary Technology Development Intern - Primary Scrub - Primary Time In 03/03/25 08:33:00 03/03/25 08:33:00 03/03/25 08:33:00 Time Out 03/03/25 08:45:00 03/03/25 08:45:00 03/03/25 08:45:00 Procedure MEDIAL BRANCH MEDIAL BRANCH MEDIAL BRANCH BLOCK(Bilateral) BLOCK(Bilateral) BLOCK(Bilateral) Comments Last Modified By: Giorgi ROLLE, Corby Rand RN, Corby Bell RN 03/03/25 08:44:15 M 03/03/25 08:44:15 M 03/03/25 08:44:15 Entry 4 Case Attendee Amina Allen (R) Role Performed Packing Checker Time In 03/03/25 08:33:00 Time Out 03/03/25 [...] Markos ROLLE, Talib Patino DO, Bradford A., Isaac RT(R), Amina Time Out Complete 03/03/25 08:33:00 [...] and tissue Entry 1 Skin Integrity Intact, [place], Warm, & Skin Abnormality No Dry Outcomes [...] Press Points Checked Ye (more content not included)...Do[facility] HospitalMain OR Preoperative Recordon 36-16-5658Ufjf OR Preoperative RecordMain OR Preoperative Record Holding Area Document Type FT Summary Primary Physician: Babar Mayers DO Finalized Date/Time: 03/03/25 07:33:54 Pt. Name: SHAZIA CHOU/Sex: 1990 Female Med Rec #: [id number] Physician: Babar Mayers DO Financial #: [id number] Pt. Type: P Room/Bed: / Admit/Disch: 03/03/25 [...] Signatures Signed By: Gabrielle Sultana RN 03/03/25 07:33NormalLima Memorial HospitalCBC w/Indiceson 68-85-5075Fvpvbrhavnl distribution width (RBC) [Ratio]14.4 %High10.9-14.2FKettering Memorial HospitalComment on above:Performed By: #### [id number] #### [facility] [address] [place], [place] [address]Mxbytzdmwo (Bld) [Volume fraction]39.0 %Aozmbd37.0-46.0[facility] HospitalComment on above:Performed By: #### [id number] #### [facility] [address] [place], [place] [address]Ivrtjdnazd (Bld) [Mass/Vol]13.2 g/rHMxsnkr13.0-16.0[facility] Memorial HospitalComment on above:Performed By: #### [id number] #### [facility] [address] [place], [place] [address]RJK (RBC) [Entitic mass]33.5 mfNaigmj91.0-34.0[facility] Memorial HospitalComment on above:Performed By: #### [id number] #### [facility] [address] [place], [place] [address]LRPS (RBC) [Mass/Vol]33.8 g/tBOxyzvr60.4-36.0L[facility] Memorial HospitalComment on above:Performed By: #### [id number] #### [facility] [address] [place] [address]JSS (RBC) [Entitic vol]99.1 tIRjrrts22.0-100.0[facility] Memorial HospitalComment on above:Performed By: #### [id number] #### [facility] [address] [place] [address]Qslecpzx526.0 E9/HTuzemc652.0-500.0[facility] Comment on above:Performed By: #### [id number] #### [facility] [address] [place] [address]Zugprcwe mean volume (Bld) [Entitic vol]9.5 fLNormal6.4-10.8 [facility] HospitalComment on above:Performed By: #### [id number] #### [facility] [address] [place] [address]SHE1.9 E12/LLow4.3-5.9Lima Memorial HospitalComment on above:Performed By: #### [id number] #### [facility] [address] [place] [address]AYY morphology finding Nom (Bld)NORMALInvalid Interpretation CodeLima Memorial HospitalComment on above:Performed By: #### [id number] #### [facility] [address] [place] [address]VXI54.1 E9/LHigh4.0-11.0[facility] Memorial HospitalComment on above:Performed By: #### [id number] #### [facility] [address] [place] [address]FMIPYZIBCQbygsdk By: SYSTEM SYSTEM on 45-16-4843Clifinvv [Mass/Vol]11 ng/kADqyach29 - 307 ng/mLRemisol ChemIron [Mass/Vol]156 ug/kXZoyc25 - 153 mcg/dLRemisol ChemIron binding capacity [Mass/Vol]403 ug/lAAsep040 - 400 mcg/dLRemisol ChemTransferrin [Mass/Vol]288 mg/yDQehmxq434 - 370 mg/dLRemisol ChemFerritinon 89-96-3932Gxuwcazt Lvl11 ng/mGNqfgza36-860TgfdecLima Memorial HospitalComment on above:Performed By: #### [id number] #### [facility] [address] [place], [place] [address]QHQFVNHLACGcsamel By: SYSTEM SYSTEM on 75-22-0690Vppcjmyczmy distribution width (RBC) [Ratio]14.4 %High10.9 - 14.2 %Remisol HemeHematocrit (Bld) [Volume fraction]39.0 %Iefzrr53.0 - 46.0 %Remisol HemeHemoglobin (Bld) [Mass/Vol]13.2 g/qIStkuyv05.0 - 16.0 gm/dLRemisol HemeMCH (RBC) [Entitic mass] 33.5 skFciyrq05.0 - 34.0 pgRemisol HemeMCHC (RBC) [Mass/Vol]33.8 g/xYSaofdu49.4 - 36.0 gm/dLRemisol HemeMCV (RBC) [Entitic vol]99.1 mSGajlqo09.0 - 100.0 fL Remisol HemePlatelet mean volume (Bld) [Entitic vol]9.5 fLNormal6.4 - 10.8 fL Remisol HemePlatelets (Bld) [#/Vol]325.0 E9/HPccmsy016.0 - 500.0 E9/LRemisol HemeRBC (Bld) [#/Vol]3.9 E12/LLow4.3 - 5.9 E12/LRemisol HemeRBC size Nom (Bld) NORMAL *NA* (03/02/25 8:35 AM)Invalid Interpretation CodeRemisol HemeWBC corrected for nucl RBC Auto (Bld) [#/Vol]13.1 E9/LHigh4.0 - 11.0 E9/LRemisol HemeIronon 03-02-2025 Lsnb689 microgram/yRXfif34-168GsucbbLima Memorial HospitalComment on above: Performed By: #### [id number] #### [facility] [address] [place], [place] [address]BPTU Calculatedon 57-22-3031SDVJ188 microgram/bXZwon174-906 [facility] HospitalComment on above:Performed By: #### [id number] #### [facility] [address] [place], [place] [address]Wjzmqwwgivo [Mass/Vol]288 mg/sHOswsnc457-907WimdjbLima Memorial HospitalComment on above:Performed By: #### [id number] #### [facility] [address] [place] [address], [place] [address]VG Note-Physicianon 05-82-3085VL Note-PhysicianED Note-Physician Basic Information Time Seen: Ben [...] strength and symmetry. No ataxia with finger-noseor kibx-ps-ileb. Intact strength and sensation of bilateral upper [...] negative for any acute cardiopulmonary process. Ramses jaramilol likely has bronchitis given negative workup. She [...] (R05.9: Cough, unspecified) Dizzi (more content not included)...Doctors HospitalComment on above:Result Comment: Electronically Signed By: Ben Garber PA-C\.br\Date and Time Signed: 02/18/2520:20 EDT\.br\Electronically Co-Signed By: Bakari Chester DO\.br\Date and Time Co-Signed: 02/22/2520:08 EDTXR Chest Single Viewon 08-53-8830YE Chest Single ViewExam Date/Time: 02/17/2025 19:33 EDT [...] Rahul Faith DO Transcribed by: MARCO Technologist: KATHLEENMcKitrick HospitalBMFrandy 42-25-3584Jxzro gap [Moles/Vol]14 mmol/LNormal6-16[facility] Comment on above:Performed By: #### [id number] #### [facility] [address] [place], [place] [address]YSR/Creat Ratio16 No NpddlRxomns09-75WonrjlLima Memorial HospitalComment on above:Performed By: #### [id number] #### [facility] [address] [place], [place] [address]Bwbscrg [Mass/Vol]10.4 mg/dLNormal8.9-11.1FKettering Memorial HospitalComment on above:Performed By: #### [id number] #### [facility] [address] [place], [place] [address]Vvifaikj [Moles/Vol]105 mmol/VFgfaqx742-907NlhlobLima Memorial HospitalComment on above:Performed By: #### [id number] #### [facility] [address] [place] [address], [place] [address]KJ2 [Moles/Vol]21 mmol/QFkkona12-31BebyihLima Memorial Hospital Comment on above:Performed By: #### [id number] #### [facility] [address] [place] [address], [place] [address]Abeyypzkka [Mass/Vol]0.7 mg/dLNormal0.5-1.3FKettering Memorial HospitalComment on above:Performed By: #### [id number] #### [facility] [address] [place], [place] [address]Qpyvbjp [Mass/Vol]109 mg/rNVgrkmx23-568DyualfLima Memorial HospitalComment on above:Performed By: #### [id number] #### [facility] [address] [place], [place] [address]Ofhiwgqtg [Moles/Vol]3.8 mmol/LNormal3.5-5.3FKettering Memorial HospitalComment on above:Performed By: #### [id number] #### [facility] [address] [place], [place] [address]Spwpot [Moles/Vol]136 mmol/ZCoikku889-942CkjcmhLima Memorial HospitalComment on above:Performed By: #### [id number] #### [facility] [address] [place] [address], [place] [address]Jsri nitrogen [Mass/Vol]11 mg/dLNormal5-21Lima Memorial HospitalComment on above:Performed By: #### [id number] #### [facility] [address] [place] [address], [place] [address]VOL w/ Auto Diffon 72-98-5878Yvviztvi Absolute0.0 E9/LNormal 0.0-0.2FKettering Memorial HospitalComment on above:Performed By: #### [id number] #### [facility] [address] [place], [place] [address]Mmgymbvop/100 WBC (Bld)0.3 %Normal0.0-2.0Lima Memorial HospitalComment on above:Performed By: #### [id number] #### [facility] [address] [place], [place] [address]Myd Absolute0.0 E9/LNormal0.0-0.5FKettering Memorial Hospital Comment on above:Performed By: #### [id number] #### [facility] [address] [place], [place] [address]Bkpdhonmtro/100 WBC (Bld)0.2 %Normal0.0-8.0Lima Memorial HospitalComment on above:Performed By: #### [id number] #### [facility] [address] [place], [place] [address]Xybzuxqgtrt distribution width (RBC) [Ratio]14.2 %Normal 10.9-14.2FKettering Memorial HospitalComment on above:Performed By: #### [id number] #### [facility] [address] [place] [address]Ramzhahrzf (Bld) [Volume fraction]40.2 %Ibiknw55.0-46.0L[facility] Memorial HospitalComment on above:Performed By: #### [id number] #### [facility] [address] [place] [address]Tucvmazjue (Bld) [Mass/Vol]13.6 g/wSHzjfqy14.0-16.0[facility] Memorial HospitalComment on above:Performed By: #### [id number] #### [facility] [address] [place] [address]Bpyes Absolute1.4 E9/LNormal1.0-4.0[facility] Comment on above:Performed By: #### [id number] #### [facility] [address] [place] [address]Jqwubtyphzo/100 WBC (Bld)16.5 %Fwtyck79.0-50.0L[facility] Memorial HospitalComment on above:Performed By: #### [id number] #### [facility] [address] [place] [address]JUW (RBC) [Entitic mass]32.6 zwSvntfw63.0-34.0[facility] Memorial HospitalComment on above:Performed By: #### [id number] #### [facility] [address] [place] [address]WOTG (RBC) [Mass/Vol]33.8 g/iAKfxchp16.4-36.0[facility] Memorial HospitalComment on above:Performed By: #### [id number] #### [facility] [address] [place] [address]XEB (RBC) [Entitic vol]96.4 mRCfjhyl66.0-100.0[facility] Memorial HospitalComment on above:Performed By: #### [id number] #### [facility] [address] [place] [address]Bctf Absolute0.5 E9/LNormal0.2-1.0[facility] Comment on above:Performed By: #### [id number] #### [facility] [address] [place], [place] [address]Zcbbsamqn/100 WBC (Bld)5.7 %Normal4.0-14.0[facility] Memorial HospitalComment on above:Performed By: #### [id number] #### [facility] [address] [place] [address], [place] [address]Mxzojm Absolute6.5 E9/LNormal2.0-7.5FKettering Memorial Hospital Comment on above:Performed By: #### [id number] #### [facility] [address] [place], [place] [address]Bmcvgq Auto77.3 %High36.0-75.0[facility] Comment on above:Performed By: #### [id number] #### [facility] [address] [place], [place] [address]Gbwpuvzj145.0 E9/TRxnzgz972.0-500.0[facility] Comment on above:Performed By: #### [id number] #### [facility] [address] [place], [place] [address]Ujtnfiuz mean volume (Bld) [Entitic vol]9.3 fLNormal6.4-10.8 [facility] HospitalComment on above:Performed By: #### [id number] #### [facility] [address] [place] [address]KOL4.2 E12/LLow4.3-5.9[facility] Memorial HospitalComment on above:Performed By: #### [id number] #### [facility] [address] [place], [place] [address]DJP8.4 E9/LNormal4.0-11.0[facility] Memorial HospitalComment on above:Performed By: #### [id number] #### [facility] [address] [place], [place] [address]HOPRZEKPMXayqnzy By: SYSTEM SYSTEM on 37-18-8247Yvudutu [Mass/Vol]4.5 g/dLNormal3.3 - 5.0 gm/dLRemisol ChemAlbumin/Globulin [Mass ratio] 1.5 {ratio}Normal1.1 - 2.2Remisol ChemALP [Catalytic activity/Vol]55 [iU]/d Wdcsmg60 - 98 Int._Unit/LRemisol ChemALT No additional P-5'-P [Catalytic activity/Vol]12 [iU]/dNormal6 - 46 Int._Unit/LRemisol ChemAnion gap [Moles/Vol] 14 mmol/LNormal6 - 16 mEq/LRemisol ChemAST [Catalytic activity/Vol]17 [iU]/d Normal5 - 43 Int._Unit/LRemisol ChemBilirubin [Mass/Vol]0.4 mg/dLNormal0.0 - 1.1 mg/dLRemisol ChemBilirubin.direct [Mass/Vol]0.1 mg/dLNormal0.0 - 0.4 mg/dL Remisol ChemBilirubin.indirect [Mass or moles/Vol]0.3 mg/dLNormal0.1 - 0.9 mg/dL Remisol ChemCalcium [Mass/Vol]10.4 mg/dLNormal8.9 - 11.1 mg/dLRemisol Chem Chloride [Moles/Vol]105 mmol/IEiwefv313 - 111 mmol/LRemisol ChemCO2 [Moles/Vol] 21 mmol/WPwhdfa28 - 31 mmol/LRemisol ChemCreatinine [Mass/Vol]0.7 mg/dLNormal0.5 - 1.3 mg/dLRemisol ChemGFR/1.73 sq M.predicted MDRD (S/P/Bld) [Vol rate/Area] 115 mL/min/1.73 z2Mywccj>=59mL/min/1.73 b1Pyiigil ChemGlobulin (S) [Mass/Vol]3.0 g/dLNormal1.4 - 4.0 gm/dLRemisol ChemGlucose [Mass/Vol]109 mg/sNMvpsoy85 - 199 mg/dLRemisol ChemMagnesium [Mass/Vol]1.8 mg/dLNormal1.3 - 2.4 mg/dLRemisol Chem Potassium [Moles/Vol]3.8 mmol/LNormal3.5 - 5.3 mmol/LRemisol ChemProtein [Mass/Vol]7.5 g/dLNormal6.0 - 7.8 gm/dLRemisol ChemSodium [Moles/Vol]136 mmol/L Pciwac574 - 145 mmol/LRemisol ChemTroponin HSpg/mLLow10.10 - 27.10 pg/mLRemisol ChemComment on above:Interpretive Data: The 95% CI (Confidence Interval) PPV (Positive Predictive Value) for myocardial infarction in females is 38 pg/mL, in males 51 pg/mL. The results should be used in conjunction withclinical conditions of myocardial infarction. (Access High Sensitivity Troponin I Instructions For Use, [place], April 2018)Urea nitrogen [Mass/Vol]11 mg/dLNormal5 - 21 mg/dLRemisol ChemUrea nitrogen/Creatinine [Mass ratio]16 mg/xaZnnruj45 - 20Remisol ChemCOAGULATION Ordered By: Nolvia Kahn on 40-57-4189ePNY Coag (PPP) [Time]30.7 bOrxxcj75.1 - 36.5 second(s)[facility] [place] Auto CoagComment on above:Interpretive Data: Parameter 15 [...] same coagulation reagent and instrumentation as [facility] [place] [place]. Currently there are no coagulation studies available worldwide for children to 14 days, andno normal ranges. Heparin therapeutic range (represented by Anti-Factor Xa activity of 0.2 - 0.4 U/mL) corresponds to PTT of 56.6 - 109.0 sec.INR Coag (PPP) [Relative time]0.88 {INR}Invalid Interpretation CodeINTEGRIS COMMUNITY [facility] [place] Auto CoagComment on above:Interpretive Data: INR results are specifically intended to assess patients stabilized on long-term Anticoagulation therapy suggested INR s Less Intensive Anticoagulation 2.0 3.0 Conventional Range 3.0 4.5PT Coag (PPP) [Time]9.8 sNormal9.4 - 12.5 second(s) [facility] [place] Auto CoagComment on above:Interpretive Data: 15 days [...] same coagulation reagent and instrumentation as [facility] [place]. Currently there are no coagulation studies available worldwide for children to 14 days, andno normal ranges.ED Clinical Summaryon 95-67-3046WT Clinical SummaryED Clinical Summary [place] [id number] ED Clinical Summary Person Information Name: SHAZIA CHOU [facility] Age: 34 Years : 1990 Sex: Female Language: Tanzanian PCP: Jennie Durand DO Marital Status: Phone: [phone] Visit Id: Visit Reason: Headache; Cough; Dizziness; [...] 02/17/2025 21:08:51 02/17/2025 21:08:51 02/17/2025 21:08:51 ADDRESS: [address] [place] [phone] PHYS DOC NOTES: MEDICAL INFORMATION: Prescriptions Given: New Medications [id number], [address], [place] [id number], [phone] brompheniramine/dextromethorphan/PSE (Bromfed DM oral syrup) 10 Milliliter [...] Jennie Durand [address], [address], [facility] [address] [place] [address] Business (1) In 3 days 02/20/2025 DIAGNOSIS: Bronchitis; Cough; Dizziness; [facility]ovagal near [facility]opeBl[facility] Patient Summaryon 64-52-2521RA Patient SummaryED Patient Summary [address] [address] Patient Discharge Instructions Person Information Name: SHAZIA CHOU Age: 34 Years Arrival Date: 02/17/2025 18:53:55 Discharge Diagnosis: Bronchitis; Cough; Dizziness; Vasovagal near syncope Primary Care Physician: Jennie Durand DO Provider Information Primary Provider: Bakari Chester DO Advanced Sand Worker:Ben Garber PA-C The exam and treatment you received in the Emergency Department were for an urgent problem and are not intended as complete care. It is important that you follow up with a doctor, nurse practitioner,or physician???s medical office assistant instructor for ongoing care. If your symptoms become worse or you do not improve asexpected and you are unable to reach your usual health care provider, you should return to the Emergency Department. We are available 24 hours a day. SHAZIA CHOU has been given the following list of patient education materials, prescriptions and follow-up instructions: Follow-up Instructions: With: Address: When: Jennie Durand [facility] [place] [address] , [facility] [address] [place] [address] Business (1) In 3 days 02/20/2025 In the event that this physician does not participate in your insurance network, please consult with your insurance company to find a nearby participating provider. Patient Education Materials: Near-Syncope; Acute Bronchitis, Adult A MESSAGE TO ALL PATIENTS REGARDING OPIOIDS PRESCRIPTION OPIOIDS: WHAT YOU NEED TO KNOW Prescription opioids can be used to help relieve earnnrqd-hn-ceospf pain and are often prescribed following a [...] may be struggli (more content not included)...Normal [facility] Memorial HospitalHEMATOLOGYOrdered By: SYSTEM SYSTEM on 02-17-2025 Basophils/100 WBC (Bld)0.3 %Normal0.0 - 2.0 %Remisol HemeBasophils/Leukocytes Auto (Bld) [Pure # fraction]0.0 E9/LNormal0.0 - 0.2 E9/LRemisol HemeEosinophils (Bld) [#/Vol]0.0 E9/LNormal0.0 - 0.5 E9/LRemisol HemeEosinophils/100 WBC (Bld) 0.2 %Normal0.0 - 8.0 %Remisol HemeErythrocyte distribution width (RBC) [Ratio] 14.2 %Flsyjp04.9 - 14.2 %Remisol HemeHematocrit (Bld) [Volume fraction]40.2 % Gvmvns66.0 - 46.0 %Remisol HemeHemoglobin (Bld) [Mass/Vol]13.6 g/pIXbcvxt41.0 - 16.0 gm/dLRemisol HemeLymphocytes (Bld) [#/Vol]1.4 E9/LNormal1.0 - 4.0 E9/L Remisol HemeLymphocytes/100 WBC (Bld)16.5 %Atodhl03.0 - 50.0 %Remisol HemeMCH (RBC) [Entitic mass]32.6 leNrchsw79.0 - 34.0 pgRemisol HemeMCHC (RBC) [Mass/Vol] 33.8 g/rIWjxynh24.4 - 36.0 gm/dLRemisol HemeMCV (RBC) [Entitic vol]96.4 fLNormal 80.0 - 100.0 fLRemisol HemeMonocytes (Bld) [#/Vol]0.5 E9/LNormal0.2 - 1.0 E9/L Remisol HemeMonocytes/100 WBC (Bld)5.7 %Normal4.0 - 14.0 %Remisol Heme Neutrophils (Bld) [#/Vol]6.5 E9/LNormal2.0 - 7.5 E9/LRemisol HemeNeutrophils/100 WBC (Bld)77.3 %High36.0 - 75.0 %Remisol HemePlatelet mean volume (Bld) [Entitic vol]9.3 fLNormal6.4 - 10.8 fLRemisol HemePlatelets (Bld) [#/Vol]350.0 E9/L Qjurfb747.0 - 500.0 E9/LRemisol HemeRBC (Bld) [#/Vol]4.2 E12/LLow4.3 - 5.9 E12/L Remisol HemeWBC corrected for nucl RBC Auto (Bld) [#/Vol]8.4 E9/LNormal4.0 - 11.0 E9/LRemisol HemeHep Func Panelon 15-39-1008Toadbis [Mass/Vol]4.5 g/dLNormal 3.3-5.0L[facility] HospitalComment on above:Performed By: #### [id number] #### [facility] [address], [place] [address]Cxzmsjc/Globulin [Mass ratio]1.5 {ratio}Normal1.1-2.2[facility] Hospital CenterComment on above:Performed By: #### [id number] #### [facility] [address], [place] [address]Vxa Phos55 Int._Unit/GKmrrbk24-46CftbhxLima Memorial Hospital Comment on above:Performed By: #### [id number] #### [facility] [address], [place] [address]AFK93 Int._Unit/LNormal6-46[facility] HospitalComment on above:Performed By: #### [id number] #### [facility] [address], [place] [address]GCU68 Int._Unit/LNormal5-43[facility] HospitalComment on above:Performed By: #### [id number] #### [facility] [address], [place] [address]Ymzd Direct0.1 mg/dLNormal0.0-0.4FKettering [facility] Comment on above:Performed By: #### [id number] #### [facility] [address], [place] [address]Bclp Indirect0.3 mg/dLNormal0.1-0.9[facility] Comment on above:Performed By: #### [id number] #### [facility] [address] [place] [address]Njui Total0.4 mg/dLNormal0.0-1.1FK[facility] Comment on above:Performed By: #### [id number] #### [facility] [address] [place] [address]Wifjzqjd (S) [Mass/Vol]3.0 g/dLNormal1.4-4.0L[facility] HospitalComment on above:Performed By: #### [id number] #### [facility] [address], [place] [address]Lyenwwu [Mass/Vol]7.5 g/dLNormal6.0-7.8[facility] HospitalComment on above:Performed By: #### [id number] #### [facility] [address], [place] [address]Bninajjizcs 49-14-0507Uunvphsxm [Mass/Vol]1.8 mg/dLNormal 1.3-2.4FKettering Memorial HospitalComment on above:Performed By: #### [id number] #### [facility] [address], [place] [address]FQ & PTTon 59-92-8766LQU Coag (PPP) [Relative time]0.88 {INR} Invalid Interpretation CodeLima Memorial HospitalComment on above:Result Comment: INR results are specifically intended to assess patients stabilized on long-term Anticoagulation therapy suggested INR???s ???Less Intensive Anticoagulation??? 2.0 ??? 3.0 Conventional Range 3.0 ??? 4.5Performed By: #### [id number] #### [facility] [address], [place] [address]JX5.8 second(s)Normal9.4-12.5FKettering Memorial HospitalComment on above:Result Comment: 15 days - [...] same coagulation reagent and instrumentation as [facility] [place]. Currently there are no coagulation studies available worldwide for children to 14 days, andno normal ranges.Performed By: #### [id number] #### [facility] [address], [place] [address]VHJ62.7 second(s)Niydhx78.1-36.5FKet[facility] Hospital Comment on above:Result Comment: Parameter 15 [...] same coagulation reagent and instrumentation as [facility] [place]. Currently there are no coagulation studies available worldwide for children to 14 days, andno normal ranges. Heparin therapeutic range (represented by Anti-Factor Xa activity of 0.2 - 0.4 U/mL) corresponds to PTT of 56.6 - 109.0 sec.Performed By: #### [id number] #### [facility] [address], [place] [address]Nda-Yuuobqp Noteon 79-09-3546Bzu-Arrival NotePre-Arrival Note Pre-Arrival Summary Name: , EDUARDA Current Date: 02/17/2025 18:54:29 EDT Gender: Female Date of : Age: 34 Pre-Arrival Type: EMS ETA: 02/17/2025 19:10:00 EDT Primary Care Physician: Presenting Problem: dizziness Pre-Arrival User: Libby Marin RN Referring Source: Location: [place] Completion Date/Time: 02/17/2025 18:40:00 [facility] Emergency Department Pre-Hospital Report Form Vital Signs: Pre-Hospital Report: Treatment in Route: Response to Treatment: Misc. Issues:NormalLima Memorial HospitalTroponin 0 Hr.on 02-17-2025 Troponin HS<2.40Syo07.10-27.10L[facility] HospitalComment on above:Result Comment: The 95% CI (Confidence Interval) PPV (Positive Predictive Value) for myocardial infarction in females is 38 pg/mL, in males 51 pg/mL. The results should be used in conjunction with clinical conditions of myocardial infarction. (Access High Sensitivity Troponin I Instructions For Use, Carter [place], April 2018)Performed By: #### [id number] #### [facility] [address], [place] [address]NV with Cult Rflxon 73-95-3740Svbun (U)Light-YellowNormalYellow [facility] HospitalComment on above:Result Comment: Microscopic readings are only performed on those samples that meet specific criteria set forth by [facility].Performed By: #### [id number] #### [facility] [address], [place] [address]Ueudzpl (U) [Mass/Vol]NegativeNormalNegativeLima Memorial HospitalComment on above:Performed By: #### [id number] #### [facility] [address], [place] [address]Yklpmyz Ql (U)NegativeNormalNegOhioHealth Southeastern Medical Center Comment on above:Performed By: #### [id number] #### [facility] [address], [place] [address]KO BloodNegativeNormalNegOhioHealth Southeastern Medical Center Comment on above:Performed By: #### [id number] #### [facility] [address], [place] [address]RN BacteriaTraceNormalTraceLima Memorial HospitalComment on above:Performed By: #### [id number] #### [facility] [address], [place] [address]SQ ClarityClearNormalClearLima Memorial HospitalComment on above:Performed By: #### [id number] #### [facility] [address], [place] [address]FR Leuk Est25 Keven/uLNormalNegativeL[facility] Hospital Comment on above:Performed By: #### [id number] #### [facility] [address], [place] [address]IJ MucousNegativeNormalNegOhioHealth Southeastern Medical Center Comment on above:Performed By: #### [id number] #### [facility] [address], [place] [address]KN NitriteNegativeNormalNegOhioHealth Southeastern Medical Center Comment on above:Performed By: #### [id number] #### [facility] [address], [place] [address]AF pH7.5Invalid Interpretation Code5.0-9.0[facility] HospitalComment on above:Performed By: #### [id number] #### [facility] [address], [place] [address]UD ProteinNegativeNormalNegativeL[facility] Hospital Comment on above:Performed By: #### [id number] #### [facility] [address], [place] [address]NS CRK6-9Yozofp5-1PwwqsjKettering Memorial HospitalComment on above: Performed By: #### [id number] #### [facility] [address], [place] [address]BU Spec Grav1.006Invalid Interpretation Code1.005-1.030L[facility] HospitalComment on above:Performed By: #### [id number] #### [facility] [address], [place] [address]ZF Squam Epithelial3-4Invalid Interpretation CodeLima Memorial HospitalComment on above:Performed By: #### [id number] #### [facility] [address] [place] [address]CV Transitional Lmejenxrcs0-1Frfwcy9-4Vucdkk [facility] Medical CenterComment on above:Performed By: #### [id number] #### [facility] [address] [place] [address]GZ UrobilinogenNegativeNormalNegativeLima Memorial HospitalComment on above:Performed By: #### [id number] #### [facility] [address], [place] [address]PV MCZ7-8Embgcq0-6ExxphlKettering Memorial HospitalComment on above: Performed By: #### [id number] #### [facility] [address], [place] [address]Heqdlmxoopzz (U) [Mass/Vol]NegativeNormalNegativeLima Memorial HospitalComment on above:Performed By: #### [id number] #### [facility] [address], [place] [address]QM Spec DescClean CatchNormalFisher Western Maryland Hospital CenterComment on above:Performed By: #### [id number] #### [facility] [address], [place] [address]OYNQVSAQOMNnsjcvj By: SYSTEM SYSTEM on 04-69-6632Udhlbyvj Auto Ql (U)Trace /HPFNormalTrace/HPFFT UA Auto SSBilirubin Ql (U)NegativeNormal Negativemg/dLINTEGRIS [facility] [place] UA Auto SSClarity (U)Clear (02/17/25 7:24 PM)NormalClearFCARNEGIE [facility] [place] UA Auto SSColor (U)Light-Yellow 1 (02/17/25 7:24 PM)NormalYellowINTEGRIS [facility]ITY [facility] [place] UA Auto SSComment on above:Interpretive Data: Microscopic readings are only performed on those samples that meet specific criteria set forth by [facility].Epithelial cells.squamous Auto (Urine sed) [#/Area]3-4 graded/HPFInvalid Interpretation CodeINTEGRIS COMM[facility]ITY [facility] [place] UA Auto SSGlucose Ql (U)NegativeNormalNegativemg/dLINTEGRIS [facility]ITY [facility] [place] UA Auto SS Hemoglobin Auto test strip (U) [Mass/Vol]NegativeNormalNegativemg/dLINTEGRIS [facility] [place] UA Auto SSKetones Auto test strip Ql (U)NegativeNormalNegativemg/dLFT UA Auto SS Leukocyte esterase Auto test strip Ql (U)25 Keven/uL Keven/uLNormalNegativeLeu/uL [facility] [place] [facility] UA Auto SSMucus Auto Ql (U)NegativeNormalNegativegraded/LPFFTMC UA Auto SS Nitrite Auto test strip Ql (U)NegativeNormalNegativemg/dLINTEGRIS [facility] [place] UA Auto SSpH (U) 7.5 *NA* (02/17/25 7:24 PM)Invalid Interpretation Code5.0 - 9.0FT UA Auto SSProtein Ql (U)NegativeNormalNegativemg/dLINTEGRIS [facility] [place] UA Auto SSRBC Ql (U)0-3 graded/HPFNormal 0-3graded/HPFINTEGRIS COMM[facility]ITY [facility] [place] UA Auto SSSpecific gravity (U) [Rel density]1.006 *NA* (02/17/25 7:24 PM)Invalid Interpretation Code1.005 - 1.030[facility] [place] UA Auto SS Transitional cells Computer assisted (U) [#/Area]0-2 graded/HPFNormal 0-2graded/HPFINTEGRIS COMMUNITY [facility] [place] UA Auto SSUrobilinogen (U) [Mass/Vol]NegativeNormal Negativemg/dLINTEGRIS [facility]ITY [facility] [place] UA Auto SSWBC Auto (Urine sed) [#/Area]0-5 graded/HPFNormal 0-5graded/HPFINTEGRIS COMM[facility]ITY [facility] [place] UA Auto SSURINALYSISOrdered By: Ben Garber on 57-24-4588XV Spec DescClean Catch (02/17/25 7:24 PM)NormalINTEGRIS [facility]ITY [facility] [place] UA Auto SSeGFRon 06-05-7686nKXH658 mL/min/1.73 m2 Normal>=59Fisher [facility] Hospital CenterComment on above:Performed By: #### [id number] #### [facility] [address], [place] [address]Oxjuf and Vascular Office/Clinic Noteon 59-92-4573Vyrsp and Vascular Office/Clinic NoteHeart and Vascular Office/Clinic [...] beat which represents less than 0.01%. 7. [place] interval 0.15 second, QRS 0.10 second, QT [...] x3, Foot, Foot, Gastric (more content notincluded)... Doctors HospitalComment on above:Result Comment: Electronically Signed By: Jak Peace MD W\.br\Date and Time Signed: 02/16/25 14:43 EDT\.br\Electronically Co-Signed By: Roxana Shipman\.br\Date and Time Co-Signed: 02/16/25 14:37 EDTXR Chest 2 Viewson 47-27-4029GC Chest 2 ViewsExam Date/Time: 02/16/2025 14:18 EDT [...] Julio Snyder MD Transcribed by: MARCO Technologist: CarlosLima Memorial HospitalHolter Monitoron 62-85-2896Znmvqf MonitorHolter Monitor HOLTER MONITOR DATES OF STUDY: [...] beat which represents less than 0.01%. 7. IL interval 0.15 second, QRS 0.10 second, QT 0.40 second at heart rate of 64 beats per minute. READ BY: terrell Hernandez Dictated: 02/10/2025 [id number] Transcribed: 02/13/2025Doctors HospitalComment on above:Result Comment: Electronically Signed By: Fernandez Daniels MD\.br\Date and Time Signed: 02/13/25 18:05 EDTMain OR Intraoperative Recordon 85-53-4159Uxsr OR Intraoperative RecordMain OR Intraoperative Record IntraOp Document Type FTPM Summary Primary Physician: Babar Mayers DO Finalized Date/Time: 01/24/25 09:58:05 Pt. Name: SHAZIA CHOU/Sex: 1990 Female Med Rec #: [id number] Physician: Babar Mayers DO Financial #: [id number] Pt. Type: P Room/Bed: / Admit/Disch: 01/24/25 [...] Corby Blue Role Performed Surgeon - Primary Technology Development Intern - Primary Scrub - Primary Time In 01/24/25 09:48:00 01/24/25 09:48:00 01/24/25 09:48:00 Time Out 01/24/25 09:58:00 01/24/25 09:58:00 01/24/25 09:58:00 Procedure MEDIAL BRANCH MEDIAL BRANCH MEDIAL BRANCH BLOCK(Bilateral) BLOCK(Bilateral) BLOCK(Bilateral) Comments Last Modified By: Nolvia Rodas RN, RN, Nolvia Gonzalez RN 01/24/25 09:57:49 01/24/25 09:57:49 01/24/25 09:57:49 Entry 4 Case Attendee Jennie Hurtado Role Performed Packing Checker Time In 01/24/25 09:48:00 Time Out 01/24/25 [...] and tissue Entry 1 Skin Integrity Intact, [place], Warm, & Skin Abnormality No Dry Outcomes [...] Clark ROLLE, Vu (more content not included)... [facility] CenterMain OR Preoperative Recordon 88-18-3260Pddl OR Preoperative RecordMain OR Preoperative Record Holding Area Document Type FTPM Summary Primary Physician: Babar Mayers DO Finalized Date/Time: 01/24/25 08:43:59 Pt. Name: SHAZIA CHOU Isreal Montgomery/Sex: 1990 Female Med Rec #: [id number] Physician: Babar Mayers DO Financial #: [id number] Pt. Type: P Room/Bed: / Admit/Disch: 01/24/25 [...] Signatures Signed By: Gabrielle Sultana RN 01/24/25 08:43Doctors HospitalMR head/brain wo/w conon 45-46-2218NO head/brain wo/w [facility] Main [place] [address] [place] [address] MRI Report Signed Patient: Shazia Chou MR#: [id number] : 1990 Acct:[id number] Age/Sex: 33 / F ADM Date: 12/16/24 Loc: MR Room: Type: [facility] Attending Dr: Corby Larsen DO Copies to: [...] Denny Escalante M.D.12/16/2024 2:50 PM Dictation Location: [place] [address] Transcribed By: MARKY 12/16/24 4960 Dictated By: Denny Escalante MD 12/16/24 1400 Signed By: 12/16/24 6942NormalThe Firelands Physician GroupMagnetic resonance imaging reportOrdered By: Denny Escalante on 18-64-8651Bedkb reportSYCAMORE MEDICAL CENTER Main [place] [address] [place] [address] MRI Report Signed Patient: Shazia Chou MR#: [id number] : 1990 Acct:[id number] Age/Sex: 33 / F ADM Date: 5 Loc: MR Room: Type: [facility] Attending Dr: Corby Larsen DO Copies to: [...] Denny Escalante M.D.12/16/2024 2:50 PM Dictation Location: [place] [address] Transcribed By: [facility] 12/16/24 2770 Dictated By: Denny Escalante MD 12/16/24 1404 Signed By: 12/16/24 1452 [facility] Work Phone: XR Spine Lumbar Complete Including [...] Julio Snyder MD Transcribed by: MARCO Technologist: PEYTONMcKitrick Hospital24 hour urine albumin/total protein ratio by electrophoresisOrdered By: Jacob Baker on 91-67-5162Dnqquzr Elph (24H U) [Mass fraction]Albumin/Protein.total in 24 hour Urine by Electrophoresis.[facility] [place]24 hour urine gamma globulin/total protein ratio by electrophoresisOrdered By: Jacob Baker on 28-82-1545Ncvrx globulin Elph (24H U) [Mass fraction]Gamma globulin/Protein.total in 24 hour Urine by Electrophoresis.[facility] [place]24 hour urine protein monoclonal/total protein by electrophoresis Ordered By: Jacob Baker on 26-18-5457Crhvver.monoclonal Elph (24H U) [Mass fraction]Protein.monoclonal/Protein.total in 24 hour Urine by ElectrophoresisNot [facility]UM[facility] HospitalANA Antinuclear Antibodieson 12-12-2024 Antinuclear Abs, IFANegativeNormal.The [facility] Physician GroupComment on above:Result Comment: Negative <1:80 Borderline 1:80 Positive >1:80 ICAP nomenclature: AC-0 For more information about Hep-2 cell patterns use ANApatterns.org, the official website for the International Consensus on Antinuclear Antibody (CYNDI) Patterns (ICAP). Performed at: [address] [id number] Internet Consultant: Santy Storey PhD, Phone: [phone] By: #### ANTIR, ADNA, SJOGRENS, HELM, C3, HISAB, CCP, CHROMATIN, CENTROME, RA, CH50, CYNDI, JLE82AJ, JO1, B2 GLYPROT, CARDIO GMA, C4 #### [facility] ,Result Comment: Negative <1:80 Borderline 1:80 Positive >1:80 ICAP nomenclature: AC-0 For more information about Hep-2 cell patterns use ANApatterns.org, the official website for the International Consensus on Antinuclear Antibody (CYNDI) Patterns (ICAP). Performed at: [address] [id number] Internet Consultant: Santy Storey PhD, Phone: [phone] PERFORMED BY: [place] [address] PATHOLOGIST EDGING SUPERVISOR CARLOS KNAPP M.D.Performed By: #### CMP, CK, HS TROP, CBC #### [facility] [address] [place], [place] [address]Alanine aminotransferase [Enzymatic activity/volume] in Serum or PlasmaOrdered By: Jacob Baker on 60-75-4551CMK [Catalytic activity/Vol]Alanine aminotransferase [Enzymatic activity/volume] in Serum or Plasma7-52[facility] OhioAlbumin [Mass/volume] in Serum or Plasma by Bromocresol green (BCG) dye binding methoOrdered By: Jacob Baker on 33-80-9165Xoldvbd BCG dye [Mass/Vol]Albumin [Mass/volume] in Serum or Plasma by Bromocresol green (BCG) dye binding metho3.5-5.7FLima Memorial HospitalAlkaline phosphatase [Enzymatic activity/volume] in Serum or PlasmaOrdered By: Jacob Baker on 74-83-8522BIB [Catalytic activity/Vol]Alkaline phosphatase [Enzymatic activity/volume] in Serum or Fvqccg35-366RplblktagSelect Medical Specialty Hospital - Southeast OhioAnti-Centromere B Antibodieson 08-31-9227Qoan-Centromere B Antibodies<0.2 Normal0.0-0.9The [facility] Physician GroupComment on above:Result Comment: Performed at: [address] [id number] Internet Consultant: Santy Storey PhD, Phone: [phone] By: #### CMP, CK, HS TROP, CBC #### [place] [address] USAAnti-RNPon 66-87-5304Qpla-FINANCIAL SERVICES DIRECTOR<0.9Whbhni6.0-0.9The [facility] Physician GroupComment on above:Performed By: #### ANTIR, ADNA, SJOGRENS, HELM, C3, HISAB, CCP, CHROMATIN, CENTROME, RA, CH50, CYNDI, CQP77QD, JO1, B2 GLYPROT, CARDIO GMA, C4 #### [facility] ,Anti-Helm Antibodieson 50-44-7295Orhx-Helm Antibodies<0.4Rccvba2.0-0.9The [facility] Physician GroupComment on above:Performed By: #### CMP, CK, HS TROP, CBC #### [place] [address] USAAnti-dsDNA(DBL)Abon 85-50-7544Niaz-dsDNA(DBL)Ab1 [IU]/mL Normal0-9The [facility] Physician GroupComment on above:Result Comment: Negative <5 Equivocal 5 - 9 Positive >9Performed By: #### CMP, CK, HS TROP, CBC #### [place] [address] USAAnticardiolipin IgG/M/A, Qnon 85-65-0217Sysvaokateyzrjh Ab, IgA,Qn<8Jfwcue4-43Ycr [facility] Physician GroupComment on above:Result Comment: Negative: <12 Indeterminate: 12 - 20 Low-Med Positive: >20 - 80 High Positive: >80Performed By: #### CMP, CK, HS TROP, CBC #### [place] [address] USAAnticardiolipin Ab, IgG,Qn<3Fjadis2-31Rql [facility] Physician GroupComment on above:Result Comment: Negative: <15 Indeterminate: 15 - 20 Low-Med Positive: >20 - 80 High Positive: >80Performed By: #### CMP, CK, HS TROP, CBC #### [place] [address] USAAnticardiolipin Ab, IgM,Qn<4Egxrga6-16Egj [facility] Physician GroupComment on above:Result Comment: Negative: <13 Indeterminate: 13 - 20 Low-Med Positive: >20 - 80 High Positive: >80Performed By: #### CMP, CK, HS TROP, CBC #### [facility] [address] [place] [address] USAAppearance of UrineOrdered By: Jacob Baker on 64-43-3543Ihvkfmiowk (U)Urine appearanceCleHolzer Hospital Aspartate aminotransferase [Enzymatic activity/volume] in Serum or PlasmaOrdered By: Jacob Baker on 72-82-3158TQC [Catalytic activity/Vol]Aspartate aminotransferase [Enzymatic activity/volume] in Serum or Wryzdv47-44VbnymjoahSelect Medical Specialty Hospital - Southeast OhioBacteria [Presence] in Urine by AutomatedOrdered By: Jacob Baker on 66-58-2462Sysmvkdy Auto Ql (U)Bacteria [Presence] in Urine by AutomatedNone SeenSelect Medical Specialty Hospital - Southeast OhioBasophils Auto (Bld) [#/Vol] Ordered By: Jacob Baker on 02-92-1788Ffmkpbsqy (Bld) [#/Vol]Automated basophil count0.0-0.2FLima Memorial HospitalBasophils/100 WBC Auto (Bld)Ordered By: Jacob Baker on 62-60-8727Aqtwjilaj/100 WBC (Bld)Automated basophil %.[facility] - Southeast OhioBeta 2 Glycoprotein I Ab IgG/Mon 40-89-0423Drmr 2 Glycoprotein I Ab, IgG<7Ouizgg1-31Xhh [facility] Physician Group Comment on above:Result Comment: Result Units: GPI IgG units The reference interval reflects a 3SD or 99th percentile interval, which is thought to represent a potentially clinically significant result in accordance with the International Consensus Statement on the classification criteria for definitive antiphospholipid syndrome (APS). J Thromb Haem 2006;4:295-306.Performed By: #### CMP, CK, HS TROP, CBC #### [facility] [address] [place] [address] USABeta 2 Glycoprotein I Ab, IgM<3Abwezt1-10Ycw [facility] Physician GroupComment on above:Result Comment: Result Units: GPI IgM units The reference interval reflects a 3SD or 99th percentile interval, which is thought to represent a potentially clinically significant result in accordance with the International Consensus Statement on the classification criteria for definitive antiphospholipid syndrome (APS). J Thromb Haem 2006;4:295-306. Performed at: - [facility] [id number] Internet Consultant: Santy Storey PhD, Phone: [phone] By: #### CMP, CK, HS TROP, CBC #### [facility] [address] [place] [address] USABeta 2 glycoprotein 1 IgG Ab [Units/volume] in Serum Ordered By: Jacob Baker on 87-53-1370Tyuq 2 glycoprotein 1 IgG Qn (S)Beta 2 glycoprotein 1 IgG Ab [Units/volume] in Serum0-[facility] - Southeast OhioComment on above:Result Units: GPI IgG unitsThe reference interval reflects a 3SD or 99th percentileinterval, which is thought to represent a potentiallyclinically significant result in accordance with theInternational Consensus Statement on the classificationcriteria for definitive antiphospholipid syndrome (APS).JThromb Haem 2006;4:295-306.Bilirubin Test strip Ql (U)Ordered By: Jacob Baker on 91-64-5916Pplrxylnt Ql (U)Bilirubin.total [Presence] in Urine by Test stripNegativeSelect Medical Specialty Hospital - [place] Bilirubin.total [Mass/volume] in Serum or PlasmaOrdered By: Jacob Baker on 25-15-4384Nnhmrqpol [Mass/Vol]Bilirubin.total [Mass/volume] in Serum or Plasma 0.3-1.0[facility] - Southeast OhioC reactive protein [Mass/volume] in Serum or PlasmaOrdered By: Jacob Baker on 08-51-8629CJA [Mass/Vol]C reactive protein [Mass/volume] in Serum or Plasma0.0-0.5FLima Memorial Hospital C-Reactive Proteinon 74-51-4603WYE [Mass/Vol]mg/LNormal0.0-0.5The [facility] Physician GroupComment on above:Performed By: #### CMP, CK, HS TROP, CBC #### [facility] [address] [place] [address] USACalcium [Mass/volume] in Serum or PlasmaOrdered By: Jacob Baker on 96-76-9346Gqadvwy [Mass/Vol]Calcium [Mass/volume] in Serum or Plasma8.6-10.3FLima Memorial HospitalCarbon dioxide, total [Moles/volume] in Serum or PlasmaOrdered By: Jacob Baker on 42-94-0052JD6 [Moles/Vol]Carbon dioxide, total [Moles/volume] in Serum or Lurqqw27.0-31.0 [facility] OhioChloride [Moles/volume] in Serum or Plasma Ordered By: Jacob Baker on 07-49-9825Jctyshsc [Moles/Vol]Chloride [Moles/volume] in Serum or Yqqivl94-886RpqkfcexiSelect Medical Specialty Hospital [facility] [place] Chromatin Antibodyon 35-23-6824Nwqjwbymi Antibody<0.2Yarqbe4.0-0.9The [facility] Physician GroupComment on above:Result Comment: PERFORMED BY: [place] [address] PATHOLOGIST EDGING SUPERVISOR CARLOS KNAPP M.D.Performed By: #### CMP, CK, HS TROP, CBC #### [facility] [address] [place] [address] USACoagulation Profileon 98-24-9950uFOS Coag (Bld) [Time]29.5 fYiozhh15.1-36.5The [facility] Physician GroupComment on above:Result Comment: A hematocrit value greater than 55% may lead to inaccurate results in coagulation testing. Patients having hematocrit values >55% require a special collection tube for coagulation studies. Please contact the laboratory at [phone] for redraw instructions. PERFORMED BY: [place] [address] PATHOLOGIST EDGING SUPERVISOR CARLOS KNAPP M.D.Performed By: #### CMP, CK, HS TROP, CBC #### [facility] [address] [place] [address] USAINR Coag (PPP) [Relative time]0.8 {INR}NormalThe [facility] Physician GroupComment on above:Result Comment: INR Therapeutic [...] CK, HS TROP, CBC #### [facility] [address] [place] [id number] USAPT Coag (PPP) [Time]9.6 sNormal9.0-12.9The [facility] Physician GroupComment on above:Result Comment: A hematocrit value greater than 55% may lead to inaccurate results in coagulation testing. Patients having hematocrit values >55% require a special collection tube for coagulation studies. Please contact the laboratory at [phone] for redraw instructions.Performed By: #### CMP, CK, HS TROP, CBC #### [facility] [address] [place] [id number] USAColor Auto (U)Ordered By: Jacob Baker on 12-12-2024 Color (U)Color of Urine by AutoYelAultman HospitalComplement C3on 82-14-4607Xituzcsowj C3133 mg/hQSameoh04-378Gqd [facility]ician Group Comment on above:Performed By: #### CMP, CK, HS TROP, CBC #### [facility] [address] [place] [address] USAComplement C4on 03-75-9209Mzianevlxe C423 mg/fYGvxccl65-49 The [facility] Physician GroupComment on above:Performed By: #### CMP, CK, HS TROP, CBC #### [facility] [address] [place] [id number] USAComplement Total (CH50)on 21-83-8828Duvqqjeiyb Total (CH50)>60Normal>41The [facility] Physician GroupComment on above:Result Comment: Age Male [...] of range values. Performed at: - [facility] [address] [id number] Internet Consultant: Santy Storey PhD, Phone: [phone] PERFORMED BY: [place] [address] PATHOLOGIST EDGING SUPERVISOR CARLOS KNAPP M.D.Performed By: #### ANTIR, ADNA, SJOGRENS, HELM, C3, HISAB, CCP, CHROMATIN, CENTROME, RA, CH50, CYNDI, IQA44TV, JO1, B2 GLYPROT, CARDIO GMA, C4 #### [facility] ,Complete Blood Count Auto Diffon 38-88-8141Lkhjgonlz (Bld) [#/Vol]0.1 10*3/uL Normal0.0-0.2The [facility] Physician GroupComment on above:Performed By: #### CMP, CK, HS TROP, CBC #### [place] [address] USABasophils/100 WBC (Bld)0.8 %Normal.The [facility] Physician GroupComment on above:Performed By: #### CMP, CK, HS TROP, CBC #### [place] [address] USAEosinophils (Bld) [#/Vol]0.2 10*3/uLNormal0.0-0.45The [facility] Physician GroupComment on above:Performed By: #### CMP, CK, HS TROP, CBC #### [place] [address] USAEosinophils/100 WBC (Bld)2.0 %Normal.The [facility] Physician GroupComment on above:Performed By: #### CMP, CK, HS TROP, CBC #### [place] [address] USAErythrocyte distribution width (RBC) [Ratio]15.3 %Normal 11.9-15.3The [facility] Physician GroupComment on above:Performed By: #### CMP, CK, HS TROP, CBC #### [place] [address] USAHematocrit (Bld) [Volume fraction]40.4 %Vjhyeo83.0-46.4The [facility] Physician GroupComment on above:Performed By: #### CMP, CK, HS TROP, CBC #### [place] [address] USAHemoglobin (Bld) [Mass/Vol]13.6 g/iJCxcwwt89.8-15.4The [facility] Physician GroupComment on above:Performed By: #### CMP, CK, HS TROP, CBC #### [place] [address] USALymphocytes (Bld) [#/Vol]1.8 10*3/uLNormal1.00-4.8The [facility] Physician GroupComment on above:Performed By: #### CMP, CK, HS TROP, CBC #### [place] [address] USALymphocytes/100 WBC (Bld)18.1 %Normal.The [facility] Physician GroupComment on above:Performed By: #### CMP, CK, HS TROP, CBC #### [place] [address] USAMCH (RBC) [Entitic mass]33.1 icLkxtzt12.7-34.3The [facility] Physician GroupComment on above:Performed By: #### CMP, CK, HS TROP, CBC #### [place] [address] USAMCV (RBC) [Entitic vol]98.2 zEEcnxsb23-432Rhb [facility] Physician GroupComment on above:Performed By: #### CMP, CK, HS TROP, CBC #### [place] [address] USAMean Corpuscular HGB Conc33.7 g/pFPqtdle51.0-35.0The [facility] Physician GroupComment on above:Performed By: #### CMP, CK, HS TROP, CBC #### [facility] [address] [place] [address] USAMonocytes (Bld) [#/Vol]0.7 10*3/uLNormal0.0-0.8The [facility] Physician GroupComment on above:Performed By: #### CMP, CK, HS TROP, CBC #### [place] [address] USAMonocytes/100 WBC (Bld)6.8 %Normal.The [facility] Physician GroupComment on above:Performed By: #### CMP, CK, HS TROP, CBC #### [place] [address] USANeutrophils (Bld) [#/Vol]7.1 10*3/uLNormal1.8-7.7The [facility] Physician GroupComment on above:Performed By: #### CMP, CK, HS TROP, CBC #### [place] [address] USANeutrophils/100 WBC (Bld)72.3 %Normal.The [facility] Physician GroupComment on above:Performed By: #### CMP, CK, HS TROP, CBC #### [place] [address] USANRBC%0.0 /100{WBC}Normal0-0.5The [facility] Comment on above:Performed By: #### CMP, CK, HS TROP, CBC #### [place] [address] USAPlatelet mean volume (Bld) [Entitic vol]9.6 fLNormal 6.3-10.7The [facility] Physician GroupComment on above:Performed By: #### CMP, CK, HS TROP, CBC #### [place] [address] USAPlatelets (Bld) [#/Vol]297 10*3/dFJcizld841-253Wfi [facility] Physician GroupComment on above:Performed By: #### CMP, CK, HS TROP, CBC #### [address] [place] [address] USARBC (Bld) [#/Vol]4.11 10*6/uLNormal3.60-5.00The [facility] Physician GroupComment on above:Performed By: #### CMP, CK, HS TROP, CBC #### [place] [address] USAWBC (Bld) [#/Vol]9.8 10*3/uLNormal3.8-11.6The [facility] Physician GroupComment on above:Performed By: #### CMP, CK, HS TROP, CBC #### [place] [address] USAComprehensive Metabolic Panelon 97-07-7257Nnpynij [Mass/Vol]4.7 g/dLNormal3.5-5.7The [facility] Physician GroupComment on above: Performed By: #### CMP, CK, HS TROP, CBC #### [place] [address] USAAlbumin/Globulin [Mass ratio]1.7 {ratio}NormalThe [facility] Physician GroupComment on above:Performed By: #### CMP, CK, HS TROP, CBC #### [place] [address] USAALP [Catalytic activity/Vol]69 U/FHowabl77-734Scn [facility] Physician GroupComment on above:Performed By: #### CMP, CK, HS TROP, CBC #### [place] [address] USAALT [Catalytic activity/Vol]20 U/LNormal7-52The [facility] Physician GroupComment on above:Performed By: #### CMP, CK, HS TROP, CBC #### [place] [address] USAAnion gap [Moles/Vol]13.5 mmol/LNormal6.0-15.0The [facility] Physician GroupComment on above:Performed By: #### CMP, CK, HS TROP, CBC #### [place] [address] USAAST [Catalytic activity/Vol]23 U/HXrqiwb62-85Wcv [facility] Physician GroupComment on above:Performed By: #### CMP, CK, HS TROP, CBC #### [place] [address] USABilirubin [Mass/Vol]0.3 mg/dLNormal0.3-1.0The [facility] Physician GroupComment on above:Performed By: #### CMP, CK, HS TROP, CBC #### [place] [address] USACalcium [Mass/Vol]10.3 mg/dLNormal8.6-10.3The [facility] Physician GroupComment on above:Performed By: #### CMP, CK, HS TROP, CBC #### [place] [address] USAChloride [Moles/Vol]103 mmol/BZqkaek24-562Oai [facility] Physician GroupComment on above:Performed By: #### CMP, CK, HS TROP, CBC #### [place] [address] USACO2 [Moles/Vol]28.8 mmol/GOkgyku40.0-31.0The [facility] Physician GroupComment on above:Performed By: #### CMP, CK, HS TROP, CBC #### [place] [address] USACreatinine [Mass/Vol]0.66 mg/dLNormal0.60-1.20The [facility] Physician GroupComment on above:Performed By: #### CMP, CK, HS TROP, CBC #### [place] [address] USAGFR/1.73 sq M.predicted MDRD (S/P/Bld) [Vol rate/Area] mL/min/{1.73_m2}NormalThe [facility] Physician GroupComment on above:Performed By: #### CMP, CK, HS TROP, CBC #### [place] [address] USAGlobulin (S) [Mass/Vol]2.8 g/dLNormalThe [facility] Physician GroupComment on above:Performed By: #### CMP, CK, HS TROP, CBC #### [facility] [address] [place] [address] USAGlucose [Mass/Vol]77 mg/yBNunyuk58-041Nvn [facility] Physician GroupComment on above:Result Comment: Random Glucose Reference Range is dependent on time and content of last meal. Glucose of more than 200 mg/dL in a nonstressed, ambulatory subject supports the diagnosis of Diabetes Mellitus. ADA recommended reference rangePerformed By: #### CMP, CK, HS TROP, CBC #### [facility] [address] [place] [address] USAPotassium [Moles/Vol]4.3 mmol/LNormal3.5-5.1The [facility] Physician GroupComment on above:Performed By: #### CMP, CK, HS TROP, CBC #### [facility] [address] [place] [address] USAProtein [Mass/Vol]7.5 g/dLNormal6.0-8.5The [facility] Physician GroupComment on above:Performed By: #### CMP, CK, HS TROP, CBC #### [facility] [address] [place] [address] USAPerformed By: #### ANTIR, ADNA, SJOGRENS, HELM, C3, HISAB, CCP, CHROMATIN, CENTROME, RA, CH50, CYNDI, KVU59UQ, JO1, B2 GLYPROT, CARDIO GMA, C4 #### [facility] ,Sodium [Moles/Vol]141 mmol/QJfezkk130-957Uvh [facility] Physician GroupComment on above:Performed By: #### CMP, CK, HS TROP, CBC #### [facility] [address] [place] [address] USAUrea nitrogen [Mass/Vol]12 mg/dLNormal7-25The [facility] Physician GroupComment on above:Performed By: #### CMP, CK, HS TROP, CBC #### [facility] [address] [place] [address] USACreatine Kinaseon 25-27-9557MM [Catalytic activity/Vol]122 U/LIwbjyv17-674Nxo [facility] Physician GroupComment on above:Result Comment: PERFORMED BY: [place] [address] PATHOLOGIST EDGING SUPERVISOR CARLOS KNAPP M.D.Performed By: #### CMP, CK, HS TROP, CBC #### [facility] [address] [place] [address] USACreatine kinase [Enzymatic activity/volume] in Serum or PlasmaOrdered By: Jacob Baker on 97-82-6555LP [Catalytic activity/Vol] Creatine kinase [Enzymatic activity/volume] in Serum or Rmpuuz06-268XkityjueaSelect Medical Specialty Hospital - Southeast OhioCreatinine [Mass/volume] in Serum or PlasmaOrdered By: Jacob Baker on 66-88-5117Khfdqcxthg [Mass/Vol]Creatinine [Mass/volume] in Serum or Plasma0.60-1.20[facility] Southeast OhioCyclic Citrulliated Pep Abon 73-42-1471Wmosru Citrulliated Pep Eb7Mnybqk1-11Sud [facility] Physician GroupComment on above:Result Comment: Negative <20 Weak positive 20 - 39 Moderate positive 40 - 59 Strong positive >59 Performed at: - [place] [id number] Internet Consultant: Santy Storey PhD, Phone: [phone] By: #### CMP, CK, HS TROP, CBC #### [facility] [address] [place] [address] USADNA double strand Ab [Units/volume] in SerumOrdered By: Jacob Baker on 24-83-7820PNH double strand Ab Qn (S)DNA double strand Ab [Units/volume] in Serum0-9[facility] Southeast OhioComment on above: Negative <5 Equivocal 5 - 9 Positive >9Dipstick and Microscopicon 12-12-2024 Appearance (U)ClearNormalClearThe Hospital Of The University Of PennsylvaniaComment on above: Order Comment: Name Collection Type:: Clean-Voided MidstreamPerformed By: #### CMP, CK, HS TROP, CBC #### [facility] [address] [place] [id number] USABacteria,UrineNone SeenNormalNone SeenCoral Gables Hospital Physician GroupComment on above:Order Comment: Name Collection Type:: Clean- Voided MidstreamPerformed By: #### CMP, CK, HS TROP, CBC #### [place] [address] USABilirubin,UrineNegativeNormalNegativeThe [facility] Physician GroupComment on above:Order Comment: Name Collection Type:: Clean- Voided MidstreamPerformed By: #### CMP, CK, HS TROP, CBC #### [place] [address] USAColor (U)Light-YellowNormalYellowThe [facility] Physician GroupComment on above:Order Comment: Name Collection Type:: Clean-Voided MidstreamPerformed By: #### CMP, CK, HS TROP, CBC #### [place] [address] USAGlucose Ql (U)NormalNormalNormalThBingham Memorial Hospital Physician GroupComment on above:Order Comment: Name Collection Type:: Clean-Voided MidstreamPerformed By: #### CMP, CK, HS TROP, CBC #### [facility] [address] [place] [address] USAHyaline Casts,UrineNoneNormal0-8The [facility] Physician GroupComment on above:Order Comment: Name Collection Type:: Clean-Voided MidstreamPerformed By: #### CMP, CK, HS TROP, CBC #### [facility] [address] [place] [address] USAKetones Ql (U)NegativeNormalNegativeCoral Gables Hospital Physician GroupComment on above:Order Comment: Name Collection Type:: Clean- Voided MidstreamPerformed By: #### CMP, CK, HS TROP, CBC #### [place] [id number] USALeukocyte esterase Test strip Ql (U)NegativeNormalNegative [facility] Physician GroupComment on above:Order Comment: Name Collection Type:: Clean-Voided MidstreamPerformed By: #### CMP, CK, HS TROP, CBC #### [place] [address] USAMucus,UrineRareNormalThe [facility] Physician GroupComment on above:Order Comment: Name Collection Type:: Clean-Voided MidstreamResult Comment: PERFORMED BY: [place] [address] PATHOLOGIST EDGING SUPERVISOR CARLOS KNAPP M.D.Performed By: #### CMP, CK, HS TROP, CBC #### [place] [address] USANitrite,UrineNegativeNormalNegativeThe [facility] Physician GroupComment on above:Order Comment: Name Collection Type:: Clean-Voided MidstreamPerformed By: #### CMP, CK, HS TROP, CBC #### [place] [address] USAOccult Blood,UrineNegativeNormalNegativeThe [facility] Physician GroupComment on above:Order Comment: Name Collection Type:: Clean- Voided MidstreamPerformed By: #### CMP, CK, HS TROP, CBC #### [place] [address] USApH (U)6.5 [pH]Normal5.0-9.0The [facility] Comment on above:Order Comment: Name Collection Type:: Clean-Voided Midstream Performed By: #### CMP, CK, HS TROP, CBC #### [place] [address] USAProtein,UrineNegativeNormalNegativeThe [facility] Physician GroupComment on above:Order Comment: Name Collection Type:: Clean-Voided MidstreamPerformed By: #### CMP, CK, HS TROP, CBC #### [place] [address] USARBC,Atmzc8-6Eyktyk4-6Wvs [facility] Physician GroupComment on above:Order Comment: Name Collection Type:: Clean-Voided MidstreamPerformed By: #### CMP, CK, HS TROP, CBC #### [place] [address] USASpecificy Clifford,Urine1.433Dokggl7.001-1.030The [facility] Physician GroupComment on above:Order Comment: Name Collection Type:: Clean- Voided MidstreamPerformed By: #### CMP, CK, HS TROP, CBC #### [facility] [address] [place] [address] USASquamous Epithelial Cell,Pmkfr3-4Bsyrfa9-8Kpf [facility] Physician GroupComment on above:Order Comment: Name Collection Type:: Clean- Voided MidstreamPerformed By: #### CMP, CK, HS TROP, CBC #### [facility] [address] [place] [address] USAUrobilinogen,UrineNormalNormalNormalThe [facility] Physician GroupComment on above:Order Comment: Name Collection Type:: Clean- Voided MidstreamPerformed By: #### CMP, CK, HS TROP, CBC #### [place] [address] USAWBC,Eijfs9-4Elimdj6-9App [facility] Physician GroupComment on above:Order Comment: Name Collection Type:: Clean-Voided MidstreamPerformed By: #### CMP, CK, HS TROP, CBC #### [facility] [address] [place] [address] USAEosinophils Auto (Bld) [#/Vol]Ordered By: Jacob Baker on 99-35-2281Gphkijgkmdd (Bld) [#/Vol]Automated eosinophil count0.0-0.45 [facility] OhioEosinophils/100 WBC Auto (Bld)Ordered By: Jacob Baker on 49-90-7063Ywmjlrzgsla/100 WBC (Bld)Automated eosinophil %. [facility] OhioEpithelial cells.squamous [#/area] in Urine sediment by Automated countOrdered By: Jacob Baker on 35-80-4137Yulsafgzit cells.squamous Auto (Urine sed) [#/Area]Epithelial cells.squamous [#/area] in Urine sediment by Automated count0-2FLima Memorial HospitalErythrocyte Sedimentation Rateon 90-86-1927FCW (Bld) [Velocity]19 mm/hNormal0-19The [facility] Physician GroupComment on above:Result Comment: PERFORMED BY: [place] [address] PATHOLOGIST EDGING SUPERVISOR CARLOS KNAPP M.D.Performed By: #### CMP, CK, HS TROP, CBC #### [place] [address] USAErythrocyte distribution width Auto (RBC) [Ratio]Ordered By: Jacob Baker on 39-77-4627Eqmrsbwzflw distribution width (RBC) [Ratio] Erythrocyte distribution width [Ratio] by Automated count11.9-15.3FLima Memorial HospitalErythrocyte sedimentation rate by Photometric method Ordered By: Jacob Baker on 40-04-8236JJE Photometric method (Bld) [Velocity] Erythrocyte sedimentation rate by Photometric method0[facility] OhioErythrocytes [#/area] in Urine sediment by Automated countOrdered By: Jacob Baker on 85-92-1684NQQ Auto (Urine sed) [#/Area]Erythrocytes [#/area] in Urine sediment by Automated count0-4FLima Memorial HospitalFree T4 (Free Thyroxine)on 90-46-5300Yccy T4 [Mass/Vol]0.84 ng/dLNormal 0.61-1.12The [facility] Physician GroupComment on above:Performed By: #### CMP, CK, HS TROP, CBC #### [place] [address] USAGlobulin Calc (S) [Mass/Vol]Ordered By: Jacob Baker on 10-63-3600Gbuuyaee (S) [Mass/Vol]Serum globulin measurement by calculation (mass/volume)[facility] OhioGlucose [Mass/volume] in Serum or PlasmaOrdered By: Jacob Baker on 32-98-2926Wihsoxx [Mass/Vol]Glucose [Mass/volume] in Serum or Zksqhc39-675HwfhuenrtSelect Medical Specialty Hospital - Southeast OhioComment on above:ADA recommended reference rangeRandom Glucose Reference Range is dependent on time and content of last meal. Glucose of more than 200 mg/dL in a nonstressed, ambulatory subject supports the diagnosisof Diabetes Mellitus. Glucose [Mass/volume] in Urine by Test stripOrdered By: Jacob Baker on 98-31-6235Uernefe Test strip (U) [Mass/Vol]Glucose [Mass/volume] in Urine by Test stripNormalSelect Medical Specialty Hospital - Southeast OhioHematocrit Auto (Bld) [Volume fraction]Ordered By: Jacob Baker on 91-33-6205Fbcwstrxrz (Bld) [Volume fraction]Hematocrit [Volume Fraction] of Blood by Automated count34.0-46.4 [facility] OhioHemoglobin Test strip Ql (U)Ordered By: Jacob Baker on 93-80-3241Rupjkfrmwj Ql (U)Hemoglobin [Presence] in Urine by Test stripNegativeSelect Medical Specialty Hospital - Southeast OhioHemoglobin [Mass/volume] in Blood Ordered By: Jacob Baker on 53-41-1133Ijgahkbdyi (Bld) [Mass/Vol]Hemoglobin [Mass/volume] in Blood11.8-15.4FLima Memorial HospitalHistone Antibodieson 27-40-8437Ftkbuoj Antibodies1.4High0.0-0.9The [facility] Physician GroupComment on above:Result Comment: Negative <1.0 Weak Positive 1.0 - 1.5 Moderate Positive 1.6 - 2.5 Strong Positive >2.5 Performed at: - [facility] [id number] Internet Consultant: Anne Oro MD, Phone: [phone] By: #### CMP, CK, HS TROP, CBC #### [place] [address] USAHyaline casts [#/area] in Urine sediment by Automated countOrdered By: Jacob Baker on 03-90-9423Vjmnlld casts Auto (Urine sed) [#/Area]Hyaline casts [#/area] in Urine sediment by Automated count0-8[facility] Southeast OhioINR in Platelet poor plasma by Coagulation assayOrdered By: Jacob Baker on 34-86-9043XRJ Coag (PPP) [Relative time]INR in Platelet poor plasma by Coagulation assaySelect Medical Specialty Hospital - Southeast OhioComment on above:INR Therapeutic Range A) Pre- and [...] on 12-12-2024 Interpretation Immunofixation (U) [Interp]Immunofixation for Urine.[facility] - Southeast OhioComment on above:No monoclonality detected.Performed at: [facility] [address] [id number] Director: Santy Storey PhD, Phone: [phone], (SYMONE), Urineon 12-12-2024 Immunofixation, (SYMONE), UrineCommentNormal.The [facility] Physician GroupComment on above:Result Comment: No monoclonality detected. Performed at: [facility] [id number] Internet Consultant: Santy Storey PhD, Phone: [phone] By: #### ANTIR, ADNA, SJOGRENS, HELM, C3, HISAB, CCP, CHROMATIN, CENTROME, RA, CH50, CYNDI, NVW60WZ, JO1, B2 GLYPROT, CARDIO GMA, C4 #### [facility] ,Immunofixation,Serumon 32-71-6443Vxqfhnzsfbiqzt, SerumCommentNormal.The [facility] Physician GroupComment on above:Result Comment: No monoclonality detected.Performed By: #### CMP, CK, HS TROP, CBC #### [facility] [address] [place] [address] USAImmunoglobulin A, Azngs407 mg/vOYwfbqb63-616Lkl [facility] Physician [facility] HospitalComment on above:Performed By: #### CMP, CK, HS TROP, CBC #### [facility] [address] [place] [address] USAImmunoglobulin G935 mg/aWCpajlh363-6777Eqr [facility] Physician GroupComment on above:Performed By: #### CMP, CK, HS TROP, CBC #### [facility] [address] [place] [id number] USAImmunoglobulin M, Cxmvm243 mg/fRAzkwbr87-033Ewe [facility] Physician GroupComment on above:Result Comment: Performed at: - [facility] [id number] Internet Consultant: Santy Storey PhD, Phone: [phone] By: #### CMP, CK, HS TROP, CBC #### [facility] [address] [place] [id number] USAJO-1 Antibodyon 97-47-6786XF-1 Antibody<0.9Mdsqem5.0-0.9 The [facility] Physician GroupComment on above:Performed By: #### ANTIR, ADNA, SJOGRENS, HELM, C3, HISAB, CCP, CHROMATIN, CENTROME, RA, CH50, CYNDI, OJB68GQ, JO1, B2 GLYPROT, CARDIO GMA, C4 #### [facility] ,Ketones Test strip Ql (U)Ordered By: Jacob Baker on 75-09-3409Gmcgdog Ql (U) Ketones [Presence] in Urine by Test stripNegRegency Hospital ToledoLeukocyte esterase [Presence] in Urine by Test stripOrdered By: Jacob Baker on 27-77-1812Ulnmmgkcr esterase Test strip Ql (U)Leukocyte esterase [Presence] in Urine by Test stripNegRegency Hospital Toledo Leukocytes [#/area] in Urine sediment by Automated countOrdered By: Jacob Baker on 07-95-8675UNP Auto (Urine sed) [#/Area]Leukocytes [#/area] in Urine sediment by Automated count0-4FLima Memorial HospitalLeukocytes [#/volume] corrected for nucleated erythrocytes in Blood by Automated coun Ordered By: Jacob Baker on 84-77-8865LAM corrected for nucl RBC Auto (Bld) [#/Vol]Leukocytes [#/volume] corrected for nucleated erythrocytes in Blood by Automated coun3.8-11.6FLima Memorial HospitalLupus Anticoagulant Comp on 19-44-6303Rznjrr Prothrombin Time (dPt)28.8Qnpqka4.0-47.6The [facility] Physician GroupComment on above:Performed By: #### CMP, CK, HS TROP, CBC #### [place] [address] USAdPT Confirm Ratio1.89Aiynlb9.00-1.34[facility] Physician GroupComment on above:Performed By: #### CMP, CK, HS TROP, CBC #### [place] [address] USADRVVT Lupus29.5Lefenr5.0-47.0[facility] Comment on above:Performed By: #### CMP, CK, HS TROP, CBC #### [place] [address] USAInterpretationComment:Normal.[facility] Comment on above:Result Comment: No lupus anticoagulant was detected. Performed at: - [address] [id number] Internet Consultant: Anne Oro MD, Phone: [phone] PERFORMED BY: [place] [address] PATHOLOGIST EDGING SUPERVISOR CARLOS KNAPP M.D.Performed By: #### CMP, CK, HS TROP, CBC #### [place] [address] USAPTT-LA26.0Etmopy5.0-43.5[facility] Physician [facility] Comment on above:Performed By: #### CMP, CK, HS TROP, CBC #### [place] [address] USAThrombin Time17.0Scrsmc0.0-23.0[facility] Physician GroupComment on above:Performed By: #### CMP, CK, HS TROP, CBC #### [place] [address] USALupus anticoagulant [Interpretation] in Platelet poor plasmaOrdered By: Jacob Baker on 05-36-9752Cvzoh anticoagulant (PPP) [Interp] Lupus anticoagulant [Interpretation] in Platelet poor plasma.[facility] Southeast OhioComment on above:No lupus anticoagulant was detected.Performed at: BN - [facility] [address] [place], [place] [id number] Director: Anne Oro MD, Phone: [phone] Auto (Bld) [#/Vol]Ordered By: Jacob Baker on 22-41-3357Luelknhrspc (Bld) [#/Vol]Lymphocytes [#/volume] in Blood by Automated count1.00-4.8[facility] Southeast OhioLymphocytes/100 WBC Auto (Bld)Ordered By: Jacob Baker on 99-71-4163Pgiwqeohtac/100 WBC (Bld) Lymphocytes/100 leukocytes in Blood by Automated count.[facility] Auto (RBC) [Entitic mass]Ordered By: Jacob Baker on 19-99-8903NQZ (RBC) [Entitic mass]MCH [Entitic mass] by Automated count24.7-34.3 [facility] HospitalHC Auto (RBC) [Mass/Vol]Ordered By: Jacob Baker on 56-82-1367UATW (RBC) [Mass/Vol]MCHC [Mass/volume] by Automated count 32.0-35.0[facility] OhioMCV Auto (RBC) [Entitic vol]Ordered By: Jacob Baker on 25-22-8346NXT (RBC) [Entitic vol]MCV [Entitic volume] by Automated avsrp54-938GsxquskzwSelect Medical Specialty Hospital - Southeast OhioMonocytes Auto (Bld) [#/Vol]Ordered By: Jacob Baker on 00-43-5070Tszhklhgs (Bld) [#/Vol]Automated blood monocyte count0.0-0.8[facility] OhioMonocytes/100 WBC Auto (Bld)Ordered By: Jacob Baker on 38-72-6154Etzvftrnt/100 WBC (Bld) Automated monocyte %.[facility] OhioMucus [Presence] in Urine by AutomatedOrdered By: Jacob Baker on 42-95-4980Wdutf Auto Ql (U)Mucus [Presence] in Urine by AutomatedSelect Medical Specialty Hospital - Southeast OhioMyoglobinon 31-23-6628Cwtmgtvsy [Mass/Vol]ng/tSEnv87-29Bfg [facility] Physician GroupComment on above:Result Comment: Performed at: CB - [facility] [address], [place], [place] [id number] Internet Consultant: Santy Storey PhD, Phone: [phone] By: #### CMP, CK, HS TROP, CBC #### [facility] [address] [id number] USANeutrophils Auto (Bld) [#/Vol]Ordered By: Jacob Baker on 58-33-2507Yhoigidudpe (Bld) [#/Vol]Neutrophils [#/volume] in Blood by Automated count1.8-7.7FLima Memorial HospitalNeutrophils/100 WBC Auto (Bld)Ordered By: Jacob Baker on 31-63-2626Sstshwvbnhr/100 WBC (Bld)Automated neutrophil %.[facility] OhioNitrite Test strip Ql (U)Ordered By: Jacob Baker on 69-82-3661Ooavgqt Ql (U)Nitrite [Presence] in Urine by Test stripNegativeSelect Medical Specialty Hospital - Southeast OhioNo Panel InformationOrdered By: Jacob Baker on 86-72-7803Cfomjcjqo GFR (CKD-EPI)> 60.0 mL/MinSelect Medical Specialty Hospital - Southeast OhioPharmacy Creatinine Clearance (ChemN/AFLima Memorial HospitalProtein Electrophoresis M-SpikeNot observed g/dLNot Observed [facility] OhioProtein Electrophoresis NoteComment.[facility] OhioComment on above:Protein electrophoresis scan will follow via computer,mail, or television inspector delivery.Performed at: [address] [id number] Director: Santy Storey PhD, Phone: [phone] Random Prot Electrophor NoteComment.[facility] Southeast OhioComment on above:Protein electrophoresis scan will follow via computer,mail, or television inspector delivery.Nucleated erythrocytes [Presence] in Blood by Automated countOrdered By: Jacob Baker on 25-88-7563Mwyijqxhr RBC Auto Ql (Bld)Nucleated erythrocytes [Presence] in Blood by Automated count0-0.5FLima Memorial HospitalPlasma thrombin timeOrdered By: Jacob Baker on 25-37-3110Ydgywwmz time Coag (PPP) [Time]TT plas0.0-23.0[facility] Southeast OhioPlatelet mean volume Auto (Bld) [Entitic vol]Ordered By: Jacob Baker on 74-52-9209Lvzgbdmf mean volume (Bld) [Entitic vol]Platelet mean volume [Entitic volume] in Blood by Automated count6.3-10.7FLima Memorial HospitalPlatelet poor plasma ratio of lupus anticoagulant-sensitive activated partial thromboOrdered By: Jacob Baker on 30-27-0917uGMW.lupus sensitive.excess phospholipid actual/normal Coag (PPP) [Relative time]Platelet poor plasma ratio of lupus anticoagulant-sensitive activated partial thrombo 0.0-47.6FLima Memorial HospitalPlatelets Auto (Bld) [#/Vol]Ordered By: Jacob Baker on 65-80-3200Mlqiexyvl (Bld) [#/Vol]Platelets [#/volume] in Blood by Automated hnlov967-290EuyalaefsSelect Medical Specialty Hospital - Southeast OhioPotassium [Moles/volume] in Serum or PlasmaOrdered By: Jacob Baker on 12-12-2024 Potassium [Moles/Vol]Potassium [Moles/volume] in Serum or Plasma3.5-5.1FLima Memorial HospitalProtein Electro, Random Urineon 71-66-9810Ggcaqtt, Urine 21.6 %Normal.[facility] Physician GroupComment on above:Performed By: #### ANTIR, ADNA, SJOGRENS, HELM, C3, HISAB, CCP, CHROMATIN, CENTROME, RA, CH50, CYNDI, [id number], JO1, B2 GLYPROT, CARDIO GMA, C4 #### [facility] ,Ampok-9-Eseyrtpt, Urine7.6 %Normal.[facility] Physician GroupComment on above:Performed By: #### ANTIR, ADNA, SJOGRENS, HELM, C3, HISAB, CCP, CHROMATIN, CENTROME, RA, CH50, CYNDI, [id number], JO1, B2 GLYPROT, CARDIO GMA, C4 #### [facility] ,Alfqv-9-Pkmysbgd, Urine12.8 %Normal.The [facility] Physician GroupComment on above:Performed By: #### ANTIR, ADNA, SJOGRENS, HELM, C3, HISAB, CCP, CHROMATIN, CENTROME, RA, CH50, CYNDI, [id number], JO1, B2 GLYPROT, CARDIO GMA, C4 #### [facility] ,Beta Globulin, Urine40.6 %Normal.The [facility] Physician GroupComment on above: Performed By: #### ANTIR, ADNA, SJOGRENS, HELM, C3, HISAB, CCP, CHROMATIN, CENTROME, RA, CH50, CYNDI, [id number], JO1, B2 GLYPROT, CARDIO GMA, C4 #### [facility] ,Gamma Globulin, Urine17.5 %Normal.The [facility] Physician GroupComment on above:Performed By: #### ANTIR, ADNA, SJOGRENS, HELM, C3, HISAB, CCP, CHROMATIN, CENTROME, RA, CH50, CYNDI, [id number], JO1, B2 GLYPROT, CARDIO GMA, C4 #### [facility] ,M-Vincent %Not ObservedNormalNot ObservedThe [facility] Physician GroupComment on above:Performed By: #### ANTIR, ADNA, SJOGRENS, HELM, C3, HISAB, CCP, CHROMATIN, CENTROME, RA, CH50, CYNDI, [id number], JO1, B2 GLYPROT, CARDIO GMA, C4 #### [facility] ,Please Note:CommentNormal.The [facility] Physician GroupComment on above:Result Comment: Protein electrophoresis scan will follow via computer, mail, or television inspector delivery. PERFORMED BY: [address] [place] [address] PATHOLOGIST EDGING SUPERVISOR CARLOS KNAPP M.D.Performed By: #### ANTIR, ADNA, SJOGRENS, HELM, C3, HISAB, CCP, CHROMATIN, CENTROME, RA, CH50, CYNDI, [id number], JO1, B2 GLYPROT, CARDIO GMA, C4 #### [facility] ,Protein (U) [Mass/Vol]mg/dLNormalNot Estab.The [facility] Physician GroupComment on above:Result Comment: Verified by repeat analysisPerformed By: #### ANTIR, ADNA, SJOGRENS, HELM, C3, HISAB, CCP, CHROMATIN, CENTROME, RA, CH50, CYNDI, [id number], JO1, B2 GLYPROT, CARDIO GMA, C4 #### [facility] ,Protein Electrophoresis, Serumon 65-74-9076Qikxxwy [Mass/Vol]4.1 g/dLNormal 2.9-4.4The [facility] Physician GroupComment on above:Performed By: #### ANTIR, ADNA, SJOGRENS, HELM, C3, HISAB, CCP, CHROMATIN, CENTROME, RA, CH50, CYNDI, [id number], JO1, B2 GLYPROT, CARDIO GMA, C4 #### [facility] ,Albumin/Globulin [Mass ratio]1.2 {ratio}Normal0.7-1.7The [facility] Physician GroupComment on above:Performed By: #### ANTIR, ADNA, SJOGRENS, HELM, C3, HISAB, CCP, CHROMATIN, CENTROME, RA, CH50, CYNDI, [id number], JO1, B2 GLYPROT, CARDIO GMA, C4 #### [facility] ,Egmyt-0-Jlgzfgfi6.3 g/dLNormal0.0-0.4The [facility] Physician GroupComment on above:Performed By: #### ANTIR, ADNA, SJOGRENS, HELM, C3, HISAB, CCP, CHROMATIN, CENTROME, RA, CH50, CYNDI, [id number], JO1, B2 GLYPROT, CARDIO GMA, C4 #### [facility] ,Mmzsv-1-Vrcghvzo3.9 g/dLNormal0.4-1.0The [facility] Physician GroupComment on above:Performed By: #### ANTIR, ADNA, SJOGRENS, HELM, C3, HISAB, CCP, CHROMATIN, CENTROME, RA, CH50, CYNDI, [id number], JO1, B2 GLYPROT, CARDIO GMA, C4 #### [facility] ,Beta Globulin1.2 g/dLNormal0.7-1.3The [facility] Physician GroupComment on above:Performed By: #### ANTIR, ADNA, SJOGRENS, HELM, C3, HISAB, CCP, CHROMATIN, CENTROME, RA, CH50, CYNDI, [id number], JO1, B2 GLYPROT, CARDIO GMA, C4 #### [facility] ,Gamma Globulin1.0 g/dLNormal0.4-1.8The [facility] Physician GroupComment on above:Performed By: #### ANTIR, ADNA, SJOGRENS, HELM, C3, HISAB, CCP, CHROMATIN, CENTROME, RA, CH50, CYNDI, [id number], JO1, B2 GLYPROT, CARDIO GMA, C4 #### [facility] ,Globulin (S) [Mass/Vol]3.4 g/dLNormal2.2-3.9[facility] Comment on above:Performed By: #### ANTIR, ADNA, SJOGRENS, HELM, C3, HISAB, CCP, CHROMATIN, CENTROME, RA, CH50, CYNDI, [id number], JO1, B2 GLYPROT, CARDIO GMA, C4 #### [facility] ,M-SpikeNot ObservedNormalNot ObservedThe [facility] Physician GroupComment on above:Performed By: #### ANTIR, ADNA, SJOGRENS, HELM, C3, HISAB, CCP, CHROMATIN, CENTROME, RA, CH50, CYNDI, [id number], JO1, B2 GLYPROT, CARDIO GMA, C4 #### [facility] ,SPE-NoteCommentNormal.The [facility] Physician GroupComment on above:Result Comment: Protein electrophoresis scan will follow via computer, mail, or television inspector delivery. Performed at: [address] [id number] Internet Consultant: Santy Storey PhD, Phone: [phone] By: #### ANTIR, ADNA, SJOGRENS, HELM, C3, HISAB, CCP, CHROMATIN, CENTROME, RA, CH50, CYNDI, [id number], JO1, B2 GLYPROT, CARDIO GMA, C4 #### [facility] ,Protein Test strip (U) [Mass/Vol]Ordered By: Jacob Olivia on 12-12-2024 Protein (U) [Mass/Vol]Protein [Mass/volume] in Urine by Test stripNegative [facility] OhioProtein [Mass/volume] in Serum or PlasmaOrdered By: Jacob Baker on 15-43-7079Ongqywb [Mass/Vol]Protein [Mass/volume] in Serum or Plasma6.0-8.5FLima Memorial HospitalProthrombin time (PT) Ordered By: Jacob Baker on 88-29-8946FT Coag (PPP) [Time]Prothrombin time (PT)9.0-12.9[facility] Southeast OhioComment on above:A hematocrit value greater than 55% may lead to inaccurate results in coagulation testing. Patientshaving hematocrit values >55% require a special collection tube for coagulation studies. Please contact the laboratory at [phone] for redraw instructions.RBC Auto (Bld) [#/Vol]Ordered By: Jacob Baker on 17-62-8727FXC (Bld) [#/Vol]Erythrocytes [#/volume] in Blood by Automated count3.60-5.00 [facility] Southeast OhioRPR w/rfx to Quant TP Abson 05-96-9646WGS, Rfx Quant RPRNon-ReactiveNormalNon ReactiveThe [facility] Physician GroupComment on above:Result Comment: Performed at: - [facility] [address] [id number] Internet Consultant: Santy Storey PhD, Phone: [phone] PERFORMED BY: [address] [address] PATHOLOGIST EDGING SUPERVISOR CARLOS KNAPP M.D.Performed By: #### ANTIR, ADNA, SJOGRENS, HELM, C3, HISAB, CCP, CHROMATIN, CENTROME, RA, CH50, CYNDI, [id number], JO1, B2 GLYPROT, CARDIO GMA, C4 #### [facility] ,Rheumatoid Factoron 59-38-6431Kjzjikqnxo Factor<10.0Normal<14.0The [facility] Physician GroupComment on above:Result Comment: Performed at: - [facility] [address] [id number] Internet Consultant: Santy Storey PhD, Phone: [phone] By: #### ANTIR, ADNA, SJOGRENS, HELM, C3, HISAB, CCP, CHROMATIN, CENTROME, RA, CH50, CYNDI, [id number], JO1, B2 GLYPROT, CARDIO GMA, C4 #### [facility] ,Ribonucleoprotein antibody assayOrdered By: Jacob Baker on 74-75-2115IKV Antibody<0.2 AI0.0-0.9[facility] Cross Hospitalcl-70 antibody assay Ordered By: Jacob Baker on 82-85-6754Gdk-70 (Scleroderma) Antibody<0.2 AI 0.0-0.9[facility] Hospitalcleroderma 70 Antibodieson 12-12-2024 Scleroderma 70 Antibodies<0.1Wvgaxl2.0-0.9The [facility] Physician GroupComment on above:Performed By: #### CMP, CK, HS TROP, CBC #### [facility] [address] [place] [address] USAScreening dilute Kuldip's viper venom time (DRVVT) with reflex to confirmatory testOrdered By: Jacob Baker on 72-58-8550uCWFW Coag (PPP) [Time]Screening dilute Kuldip's viper venom time (DRVVT) with reflex to confirmatory test0.0-47.0[facility] Hospitalcreening lupus anticoagulant-sensitive activated partial thromboplastin time (aPTT)Ordered By: Jacob Baker on 32-93-6403rBNW.lupus sensitive Coag (PPP) [Time]Screening lupus anticoagulant-sensitive activated partial thromboplastin time (aPTT) 0.0-43.5FKettering Memorial Hospitalerum Es-1 extractable nuclear antibody assay (units/volume)Ordered By: Jacob Baker on 34-52-0728Nr-1 extractable nuclear Ab Qn (S)Serum Es-1 extractable nuclear antibody assay (units/volume) 0.0-0.9[facility] Hospitalerum RPR testOrdered By: Jacob Baker on 13-18-1601Kigkbi Ab RPR Ql (S)Reagin Ab [Presence] in Serum by SONNYNon ReactiveSelect Medical Specialty Hospital - Southeast OhioComment on above:Performed at: [address] [id number] Director: Santy Storey PhD, Phone: [phone] Sjogrens syndrome-A extractable nuclear antibody assay (units/volume)Ordered By: Jacob Baker on 90-32-3761Ntuvchzq syndrome-A extractable nuclear Ab Qn (S)Serum Sjogrens syndrome-A extractable nuclear antibody assay (units/volume)0.0-0.9[facility] Serum Sjogrens syndrome-B extractable nuclear antibody assay (units/volume) Ordered By: Jacob Baker on 25-02-8369Mdvwhuls syndrome-B extractable nuclear Ab Qn (S)Serum Sjogrens syndrome-B extractable nuclear antibody assay (units/volume)0.0-0.9[facility] Cross Hospitalerum Helm extractable nuclear antigen (HERIBERTO) antibody assay (units/volume)Ordered By: Jacob Baker on 19-16-2274Fgrrl extractable nuclear Ab Qn (S)Serum Helm extractable nuclear antigen (HERIBERTO) antibody assay (units/volume)0.0-0.9[facility] Cross Hospitalerum aldolase measurementOrdered By: Jacob Baker on 82-47-5870Mkjfainw 4.2 U/LNormal3.3-10.3FLima Memorial HospitalComment on above:Performed at: [facility] [employer] [id number] Director: Santy Storey PhD, Phone: [phone] Comment: Performed at: [address] [id number] Internet Consultant: Santy Storey PhD, Phone: [phone] PERFORMED BY: [place] [address] [address] EVINJacqueline[place] [address] PATHOLOGIST EDGING SUPERVISOR CARLOS KNAPP M.D.Performed By: #### CMP, CK, HS TROP, CBC #### [facility] [address] [place] [address] USASerum beta 2 glycoprotein 1 IgM antibody assay (units/volume)Ordered By: Jacob Baker on 25-91-5097Glgs 2 glycoprotein 1 IgM Qn (S)Beta 2 glycoprotein 1 IgM Ab [Units/volume] in SerumSelect Medical Specialty Hospital - Southeast OhioComment on above:Result Units: GPI IgM unitsThe reference interval reflects a 3SD or 99th percentileinterval, which is thought to represent a potentiallyclinically significant result in accordance with theInternational Consensus Statement on the classificationcriteria for definitive antiphospholipid syndrome (APS).JThromb Haem 2006;4:295-306.Performed at: [employer] [id number] Director: Santy Storey PhD, Phone: [phone] cardiolipin IgA antibody assay by immunoassay (units/volume)Ordered By: Jacob Baker on 55-35-9510Drpshmvysne IgA IA Qn (S)Cardiolipin IgA Ab [Units/volume] in Serum by Immunoassay0 [facility] - Southeast OhioComment on above:Negative: <12 Indeterminate: 12 - 20 Low-Med Positive: >20 - 80 High Positive: >80Serum cardiolipin IgG antibody assay by immunoassay (units/volume)Ordered By: Jacob Baker on 31-50-2263Qqldcfltwus IgG IA Qn (S)Cardiolipin IgG Ab [Units/volume] in Serum by Immunoassay0[facility] - Southeast OhioComment on above:Negative: <15 Indeterminate: 15 - 20 Low-Med Positive: >20 - 80 High Positive: >80Serum cardiolipin IgM antibody assay by immunoassay (units/volume)Ordered By: Jacob Baker on 18-46-1274Pryqhaxluru IgM IA Qn (S)Cardiolipin IgM Ab [Units/volume] in Serum by Immunoassay0[facility] - Southeast OhioComment on above: Negative: <13 Indeterminate: 13 - 20 Low-Med Positive: >20 - 80 High Positive: >80Serum centromere protein B antibody assay (units/volume)Ordered By: Jacob Baker on 50-29-5776Hggtrzzykr protein B Ab Qn (S)Serum centromere protein B antibody assay (units/volume)0.0-0.9[facility] - Southeast OhioComment on above:Performed at: [employer] [address] [id number] Director: Santy Storey PhD, Phone: [phone] globulin measurement (mass/volume)Ordered By: Jacob Baker on 90-41-6282Ykbxwfbk (S) [Mass/Vol] Serum globulin measurement (mass/volume)2.2-3.9[facility] Serum histone IgG antibody assay by immunoassay (units/volume)Ordered By: Jacob Baker on 49-28-9110Yelqval IgG IA Qn (S)Serum histone IgG antibody assay by immunoassay (units/volume)High0.0-0.9[facility] Comment on above:Negative <1.0 Weak Positive 1.0 - 1.5 Moderate Positive 1.6 - 2.5 Strong Positive >2.5Performed at: - [employer] [id number] Director: Anne Onofre, Phone: [phone] immunofixation electrophoresisOrdered By: Jacob Baker on 04-84-8394Twqpy ImmunofixationComment.[facility] - Southeast OhioComment on above:No monoclonality detected.Serum nuclear antibody titerOrdered By: Jacob Baker on 64-11-7582Lshzzed Ab (S) [Titer]Serum nuclear antibody titer.[facility] - Southeast OhioComment on above:Negative <1:80 Borderline 1:80 Positive >1:80ICAP nomenclature: AC-0For more information about Hep-2 cell patterns useANApatterns.org, the official website for theInternational Consensus on Anti nuclear Antibody (CYNDI)Patterns (ICAP).Performed at: [employer] [id number] Director: Santy Storey PhD, Phone: [phone] or plasma IgA measurement (mass/volume)Ordered By: Jacob Baker on 25-79-3871VvX [Mass/Vol]IgA [Mass/volume] in Serum or Buzwgm32-[address] [place], [place] [address]erum or plasma IgG measurement (mass/volume) Ordered By: Jacob Baker on 46-24-5368JzZ [Mass/Vol]IgG [Mass/volume] in Serum or Iceaqv817-0786NroinspuvGreen Cross Hospitalerum or plasma IgM measurement (mass/volume)Ordered By: Jacob Baker on 90-43-8970BzC [Mass/Vol] IgM [Mass/volume] in Serum or Qlrvwz45-421GsebqimmoSelect Medical Specialty Hospital - Southeast Ohio Comment on above:Performed at: [facility] [facility] [id number] Director: Santy Storey PhD, Phone: [phone] or plasma albumin measurement (mass/volume)Ordered By: Jacob Baker on 74-58-0185Gumyrgn [Mass/Vol]Albumin [Mass/volume] in Serum or Plasma2.9-4.4FKettering Memorial Hospitalerum or plasma albumin/globulin mass ratioOrdered By: Jacob Baker on 77-06-5214Sgkbuge/Globulin [Mass ratio]Serum or plasma albumin/globulin mass ratio0.7-1.7FKettering Memorial Hospitalerum or plasma alpha 1 globulin measurement by electrophoresis (mass/volume)Ordered By: Jacob Baker on 27-34-7839Vfuts 1 globulin Elph [Mass/Vol]Serum or plasma alpha 1 globulin measurement by electrophoresis (mass/volume)0.0-0.4FKettering Memorial Hospitalerum or plasma alpha 2 globulin measurement by electrophoresis (mass/volume)Ordered By: Jacob Baker on 55-50-2088Ntcuc 2 globulin Elph [Mass/Vol]Serum or plasma alpha 2 globulin measurement by electrophoresis (mass/volume)0.4-1.0[facility] Cross Hospitalerum or plasma anion gap determinationOrdered By: Jacob Baker on 11-09-4287Igoor gap [Moles/Vol]Serum or plasma anion gap determination6.0-15.0[facility] Cross Hospitalerum or plasma beta globulin measurement by electrophoresis (mass/volume)Ordered By: Jacob Baker on 10-78-6583Trrv globulin Elph [Mass/Vol]Serum or plasma beta globulin measurement by electrophoresis (mass/volume)0.7-1.3FKettering Memorial Hospitalerum or plasma chromatin antibody assay (units/volume)Ordered By: Jacob Baker on 83-35-9275Frkzzltjg Ab QnSerum or plasma chromatin antibody assay (units/volume)0.0-0.9[facility] Cross Hospitalerum or plasma complement C3 measurement (mass/volume) Ordered By: Jacob Baker on 41-28-0071Vtmmbcmjtb C3 [Mass/Vol]Serum or plasma complement C3 measurement (mass/volume)82-167[facility] Serum or plasma complement C4 measurement (mass/volume)Ordered By: Jacob Baker on 39-36-9072Mugvgksjsi C4 [Mass/Vol]Serum or plasma complement C4 measurement (mass/volume)12-38[facility] Cross Hospitalerum or plasma cyclic adenosine monophosphate measurement (moles/volume)Ordered By: Jacob Baker on 85-67-3763Kajspemeg monophosphate.cyclic [Moles/Vol]Serum or plasma cyclic adenosine monophosphate measurement (moles/volume)0-19[facility] Southeast OhioComment on above:Negative <20 Weak positive 20 - 39 Moderate positive 40 - 59 Strong positive >59Performed at:[employer] [place], [place] [id number] Director: Santy tSorey PhD, Phone: [phone] Serum or plasma gamma globulin measurement by electrophoresis (mass/volume) Ordered By: Jacob Bkaer on 53-62-2222Cjyaz globulin Elph [Mass/Vol]Serum or plasma gamma globulin measurement by electrophoresis (mass/volume)0.4-1.8 [facility] Hospitalerum or plasma myoglobin measurement (mass/volume)Ordered By: Jacob Baker on 79-21-5326Swzrwihjg [Mass/Vol]Serum or plasma myoglobin measurement (mass/volume)Ldt01-31QcyanhtauSelect Medical Specialty Hospital - Southeast OhioComment on above:Performed at: [employer] [place], [place] [id number] Director: Santy Storey PhD, Phone: [phone] or plasma rheumatoid factor measurement (units/volume)Ordered By: Jacob Baker on 30-35-2490Dbqrmymoyy factor QnSerum or plasma rheumatoid factor measurement (units/volume)<14.0[facility] Southeast OhioComment on above:Performed at: - [facility] [address] [place], [place] [id number] Director: Santy Storey PhD, Phone: [phone] Anti-SSA/SSBon 81-47-0094IZ- A/Ro Sjogrens Antibody<0.6Zdlyih5.0-0.9[facility] Physician GroupComment on above:Performed By: #### ANTIR, ADNA, SJOGRENS, HELM, C3, HISAB, CCP, CHROMATIN, CENTROME, RA, CH50, CYNDI, [id number], JO1, B2 GLYPROT, CARDIO GMA, C4 #### [facility] ,SS-B/La Sjogrens Antibody<0.5Vghjvn0.0-0.9[facility] Physician [facility]ic HospitalComment on above:Performed By: #### ANTIR, ADNA, SJOGRENS, HELM, C3, HISAB, CCP, CHROMATIN, CENTROME, RA, CH50, CYNDI, SWU63IO, JO1, B2 GLYPROT, CARDIO GMA, C4 #### [facility] ,Sodium [Moles/volume] in Serum or PlasmaOrdered By: Jacob Baker on 76-95-7491Ivgfpi [Moles/Vol]Sodium [Moles/volume] in Serum or Naaxjt016-797 [facility] Hospitalpecific gravity Test strip (U) [Rel density] Ordered By: Jacob Baker on 96-43-0494Ttftnthm gravity (U) [Rel density] Specific gravity of Urine by Test strip1.001-1.030[facility] OhioThyroid Stimulating Hormoneon 55-23-0506ZCQ Qn0.91 m[IU]/LNormal0.45-5.33 [facility] Physician [facility] Dominic HospitalComment on above:Result Comment: PERFORMED BY: [place] [address] PATHOLOGIST EDGING SUPERVISOR CARLOS KNAPP M.D.Performed By: #### CMP, CK, HS TROP, CBC #### [place] [address] USAThyrotropin [Units/volume] in Serum or PlasmaOrdered By: Jacob Baker on 69-53-4864WGD QnThyrotropin [Units/volume] in Serum or Plasma 0.45-5.33[facility] OhioThyroxine (T4) free [Mass/volume] in Serum or PlasmaOrdered By: Jacob Baker on 91-51-3217Hgno T4 [Mass/Vol] Thyroxine (T4) free [Mass/volume] in Serum or Plasma0.61-1.12[facility] OhioTotal hemolytic complement CH50 assayOrdered By: Jacob Baker on 71-96-6158Llwlk Complement (CH50)>60 U/mL>41[facility] Comment on above:Age Male Female 1 - [...] to determine out of range values.Performed at: [facility] [facility] [employer] [facility] [id number] Director: Santy Storey PhD, Phone: [phone] nitrogen [Mass/volume] in Serum or PlasmaOrdered By: Jacob Baker on 46-48-9570Dlkw nitrogen [Mass/Vol]Urea nitrogen [Mass/volume] in Serum or Plasma 04-07[facility] OhioUrine alpha 1 globulin/total protein by electrophoresisOrdered By: Jacob Baker on 16-60-9338Xcfax 1 globulin Elph (U) [Mass fraction]Urine alpha 1 globulin/total protein by electrophoresis. [facility] OhioUrine alpha 2 globulin/total protein ratio by electrophoresisOrdered By: Jacob Baker on 35-16-5620Cgjmh 2 globulin Elph (U) [Mass fraction]Urine alpha 2 globulin/total protein ratio by electrophoresis. [facility] OhioUrine beta globulin measurement by electrophoresis (mass/volume)Ordered By: Jacob Baker on 86-85-3748Sugg globulin Elph (U) [Mass/Vol]Urine beta globulin measurement by electrophoresis (mass/volume).[facility] OhioUrine protein measurement (mass/volume)Ordered By: Jacob Baker on 54-36-9688Wdrxuqd (U) [Mass/Vol] Protein [Mass/volume] in UrineNot Estab.[facility] OhioComment on above:Verified by repeat analysisUrobilinogen Test strip (U) [Mass/Vol] Ordered By: Jacob Baker on 73-41-7968Bvezbaqqssdt (U) [Mass/Vol]Urobilinogen [Mass/volume] in Urine by Test stripNormalSelect Medical Specialty Hospital - Southeast OhioWBC Auto (Bld) [#/Vol]Ordered By: Jacob Baker on 92-96-6244CSP (Bld) [#/Vol] Leukocytes [#/volume] in Blood by Automated count3.8-11.6FLima Memorial HospitalaPTT in Platelet poor plasma by Coagulation assayOrdered By: Jacob Baker on 22-13-5710pRQY Coag (PPP) [Time]Activated partial thromboplastin time (aPTT) in platelet poor plasma by coagulation a25.1-36.5 [facility] Southeast OhioComment on above:A hematocrit value greater than 55% may lead to inaccurate results in coagulation testing. Patientshaving hematocrit values >55% require a special collection tube for coagulation studies. Please contact the laboratory at [phone] for redraw instructions. aPTT.lupus sensitive/aPTT.lupus sensitive W excess phospholipid (screen to confirm raOrdered By: Jacob Baker on 99-17-7619tDYO.lupus sensitive/aPTT.lupus sensitive W excess phospholipid Coag (PPP) [Ratio] aPTT.lupus sensitive/aPTT.lupus sensitive W excess phospholipid (screen to confirm ra0.00-1.34[facility] OhiopH Test strip (U)Ordered By: Jacob Baker on 90-99-4736dG (U)pH of Urine by Test strip5.0-9.0[facility] OhioUS Abdomen, Limitedon 02-97-1878PU Abdomen, LimitedExam Date/Time: 11/29/2024 07:20 EDT Reason [...] Snyder MD Transcribed by: MARCO Technologist: [facility]Main OR Intraoperative Recordon 09-99-4521Cfyu OR Intraoperative RecordMain OR Intraoperative Record IntraOp Document Type FTPM Summary Primary Physician: Babar Mayers DO Finalized Date/Time: 11/28/24 10:21:25 Pt. Name: SHAZIA CHOU Isreal Montgomery/Sex: 1990 Female Med Rec #: [id number] Physician: Babar Mayers DO Financial #: [id number] Pt. Type: P Room/Bed: / Admit/Disch: 11/28/24 08:59:53 - Institution: Case Times FTPM Entry 1 Patient Times In Room 11/28/24 10:16:00 Out Room 11/28/24 10:22:00 Procedure Times Start 11/28/24 10:19:00 Stop 11/28/24 10:21:00 Anesthesia Times Last Modified By: Lulu Burrows RN 11/28/24 10:21:12 Case Attendance FTPM Entry 1 Entry 2 Entry 3 Case Attendee Babar Mayers DO, RN, Kayla J Clark RN, Nolvia Lehman Role Performed Surgeon - Primary Technology Development Intern - Primary Scrub - Primary Time In 11/28/24 10:16:00 11/28/24 10:16:00 11/28/24 10:16:00 Time Out 11/28/24 10:22:00 11/28/24 10:22:00 11/28/24 10:22:00 Procedure TRANSFORAMINAL EPIDURAL TRANSFORAMINAL EPIDURAL TRANSFORAMINAL EPIDURAL STEROID INJECTIO(Left) STEROID INJECTIO(Left) STEROID INJECTIO(Left) Comments Last Modified By: Markos ROLLE, Lulu Burrows RN, Lulu Mercer RN 11/28/24 10:21:12 11/28/24 10:21:12 11/28/24 10:21:12 Entry 4 Case Attendee Sofy Mix Role Performed Packing Checker Time In 11/28/24 10:16:00 Time Out 11/28/24 [...] Out Markos ROLLE, Lulu Bellamy, Given Participants Calrk ROLLE, Nolvia Lehman, Talib SNOWDEN, Babar Gramajo, [...] Procedure Yes Primary Surgeon Babar Mayers DO 11/28/24 10:19:00 Stop 11/28/24 10:21:00 Anesthesia Type [...] and tissue Entry 1 Skin Integrity Intact, [place], Warm, & Skin Abnormality No Dry Outcomes [...] Strap, Pillow Large Under (more content not included)...[facility] HospitalMain OR Preoperative Recordon 48-18-7090Yamh OR Preoperative RecordMain OR Preoperative Record Holding Area Document Type FTPM Summary Primary Physician: Babar Mayers DO Finalized Date/Time: 11/28/24 09:16:26 Pt. Name: SHAZIA CHOU Valentina/Sex: 1990 Female Med Rec #: [id number] Physician: Babar Mayers DO Financial #: [id number] Pt. Type: P Room/Bed: / Admit/Disch: 11/28/24 [...] RN 11/28/24 09:04 Gabrielle Sultana RN 11/28/24 09:16[facility] HospitalI Spine Lumbar w/o Contraston 57-00-8994YCV Spine Lumbar w/o ContrastExam Date/Time: 11/11/2024 20:11 [...] Roberto You MD Transcribed by: MARCO Technologist: CARLIMcKitrick HospitalNonvisit Note - PTon 71-02-4400Agrnfybo Note - PTNonvisit Note - PT -per and her insurance will not cover.[facility] Nonvisit Note - PTon 21-65-2178Ntqpffba Note - PTNonvisit Note - PT Shazia called to cancel her remaining appointments. She said per request of her doctor and insurance will not cover [facility]Nonvisit Note - PTon 75-75-1014Lzvylerq Note - PTNonvisit Note - PT - pt is having issues with her insurance and wants to figure it out [facility] HospitalXR Spine Lumbosacral Minimum 4 Viewson 89-97-4476DO Spine Lumbosacral Minimum 4 ViewsExam Date/Time: 11/02/2024 [...] by: Francisco Pena Transcribed by: MARCO Technologist: [facility] HospitalXR Femur Min 2 Views Lefton 32-17-8416WB Femur Min 2 Views LeftExam Date/Time: 11/02/2024 [...] Julio Snyder MD Transcribed by: MARCO Technologist: [facility] HospitalNonvisit Note - PTon 11-52-1061Uxuuormb Note - PTNonvisit Note - PT Chart reviewed with eval prepped for scheduled eval. [facility] Clinical Summaryon 18-51-5444KN Clinical SummaryED Clinical Summary [place] [id number] ED Clinical Summary Person Information Name: SHAZIA CHOU [facility] Age: 33 Years : 1990 Sex: Female Language: Tanzanian PCP: KURT BALBUENA CNP Marital Status: Visit [...] 10/18/2024 08:40:02 10/18/2024 08:40:02 10/18/2024 08:40:02 ADDRESS: [address] [place] [phone] [facility] DOC NOTES: MEDICAL INFORMATION: Prescriptions Given: New Medications [facility]/pharmacy #[id number], [address], [place] [phone], [phone] methocarbamol (Robaxin-750 oral tablet) 2 Tablets By [...] Follow up: With: Address: When: KURT BALBUENA [address] [place] [phone] Amulyte (1) In 3 days 10/21/2024 DIAGNOSIS: Chronic painNormalFisher Vinny Medical CenterED Note-Physicianon 75-72-1947RF Note-PhysicianED Note-Physician Basic Information Time Seen: Beto Shea PA-C 10/18/2024 08:20 Chief Complaint Pt reports lower back pain and left leg pain. Pt reports she has seen multiple doctors and no one can figure out what is oging on. Pain since . Has seen PCP, [place] [facility], Neuro. EMG and CTA of head/neck [...] day(s), # 18 tab(s), Refills(s) 0, Pharmacy: [facility]/pharmacy #[id number], 170, cm, 10/18/24 8:12:00 EST, Height/Length Dosing, 90, kg, 10/18/24 8:12:00 EST, Weight Dosing predniSONE, 60 mg = 3 tab(s), Oral, Daily, X 7 day(s), # 21 tab(s), Refills(s) 0, Pharmacy: [facility]/pharmacy #[id number], 170, cm, 10/18/24 8:12:00 EST, Height/Length [...] KURT BALBUENA In 3 days 10/21/[address] [place], [place] [phone] Business (1) Additional Instructions: Patient Education Chronic [...] made to ensure accuracy, however, inadvertently computerized drill sergeant mistakes may be present. Appropriate healthcare PPE [...] Alcohol abuse Procedure/Surgical H (more content not included)...[facility]ctors HospitalComment on above:Result Comment: Electronically Signed By: Beto Shea PA-C\.br\Date and Time Signed: 10/18/2508:04 EST\.br\Electronically Co-Signed By: Jose Correia M.D.\.br\Date and Time Co-Signed: 10/18/24 09:07 ERID Patient Summaryon 34-70-7135CS Patient SummaryED Patient Summary [place] [id number] Patient Discharge Instructions Person Information Name: SHAZIA CHOU Age: 33 Years Arrival Date: 10/18/2024 08:04:01 Discharge Diagnosis: Chronic pain Primary Care Physician: KURT BALBUENA CNP Provider Information Primary Provider: Jose Correia M.D. Advanced Sand Worker:Beto Shea PA-C The exam and treatment you received in the Emergency Department were for an urgent problem and are not intended as complete care. It is important that you follow up with a doctor, nurse practitioner,or physician???s medical office assistant instructor for ongoing care. If your symptoms become worse or you do not improve asexpected and you are unable to reach your usual health care provider, you should return to the Emergency Department. We are available 24 hours a day. SHAZIA CHOU has been given the following list of patient education materials, prescriptions and follow-up instructions: Follow-up Instructions: With: Address: When: KURT BALBUENA [address] [place] [phone] Business (1) In 3 days 10/21/2024 In the event that this physician does not participate in your insurance network, please consult with your insurance company to find a nearby participating provider. Patient Education Materials: Chronic Pain, Adult A MESSAGE TO ALL PATIENTS REGARDING OPIOIDS PRESCRIPTION OPIOIDS: WHAT YOU NEED TO KNOW Prescription opioids can be used to help relieve zdujtfxg-vu-whhjqd pain and are often prescribed following a [...] your health care professio (more content not included)...[facility] Ambulatory Visit Summaryon 80-13-0254Bkhmzhehbi Visit SummaryAmbulatory Visit Summary SHAZIA CHOU :1990 [...] AM EST With: KURT BALBUENA CNP Where: [facility] [address] [address]- Medications What How Much When Why Instructions [...] you for choosing us for your care. [facility] [place] [facility] Medicine Office/Clinic Noteon 62-12-9882Pjgwyw Medicine Office/Clinic NoteFafall river emergency hospital Medicine Office/Clinic Note Chief Complaint Pain follow up HPI Staff Pt presents today for 2wk follow up to chronic pain. Treated w/gabapentin 100mg. Pt denies relief from pain with med. Brain MRI? Has not scheduled yet due to rescheduling on pt's end. Rheumatoid factor ordered last encounter. NEG (done @ [facility]) Referred to [facility]. Did see, but waiting for MRI brain results. PHQ9: 14 Does see psychiatrist. Concerned she may have Raynaud's. 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 History of Present Illness 33 year old [...] referral to rheumatology as the [facility] at [facility] suggested she may have Raynaud's phenomenon. Patient [...] TID, # 90 cap(s), Refills(s) 0, Pharmacy: [facility]/pharmacy #[id number], 170, cm, 10/14/24 9:02:00 EST, Height/Length Dosing, 90.2, kg, 10/14/24 9:02:00 EST, Weight Dosing 2. Raynaud phenomenon (I73.00: Raynaud's syndrome without gangrene) Ordered: [facility] External Ambulatory Referral 3. Alcohol abuse, uncomplicated [...] BALBUENA CNP, FAM Within 6 weeks [address] [place] [address] Business (1) Additional Instructions: Chronic pain syndrome Patient Education Binge-Drinking Information, Adult Problem List/Past Medical History Ongoing Alcohol abuse, uncomplicated Bipolar disorder BMI 31.0-31.9,adult Borderline personality disorder Chronic pain syndrome History of bypass of stomach Hypertension Iron deficiency anemia Left breast mass Muscle weakness-general Obesity (BMI 30-39.9) Overweight (BMI 25.0 (more content not included)...Doctors HospitalComment on above:Result Comment: Electronically Signed By: KURT BALBUENA CNP\.br\Date and Time Signed: 10/14/24 09:39 ESTPre-Visit Planningon 04-90-7512Exh-Visit PlanningPre-Visit Planning From: Lina Chirinos To: KURT BALBUENA CNP; Sent: 10/13/2024 14:16:22 EST Subject: Pre-Visit Planning Due Date/Time: 10/13/2024 14:16:00 EST Caller Name: SHAZIA CHOU; Caller Number: Jonathan , Veto Antonio Lanier. During a pre-visit planning chart review, I noted the following documentation in the medical record: Current Problem List: Alcohol abuse, uncomplicated. 11/03/2022 Office Visit Note: HPI- Pt reports her sobriety is under control. 50 days sober. Currently not drinking. Pt reports she started drinking heavily about 16 mo ago when her mother . Pt is currently using Naltrexone. 06/09/2023 [facility] ED Note: HPI- The patient states that [...] drug abuse. This was an error. 09/16/2024 [facility] Records (page 11): Office Visit dated 06/16/2024- [...] feel free to contact me at extension [phone]. Lina Chirinos LPN Clinical Production Officer [place] [phone] Extension: [phone] [email or web address] From: KURT BALBUENA CNP To: Lina Chirinos; [...] to continue with counseling f/u in 4-6 weeksNormalLima Memorial HospitalAmbulatory Visit Summaryon 89-70-5870Czgmaiboyy Visit SummaryAmbulatory Visit Summary SHAZIA CHOU :1990 [...] AM EST With: KURT BALBUENA CNP Where: [place] [phone]- Medications What How Much When Why Instructions New gabapentin (gabapentin 100 mg Cap) 1 Capsules By Mouth 3 times a day Chronic pain syndrome Pickup at [facility]/pharmacy #[id number] Unchanged acetaminophen (Tylenol) 325 Milligram By Mouth [...] Once a day (at bedtime) Pharmacy Information [facility]/pharmacy #[id number]: [address], [place] [phone] Allergies Abilify (suicidal) BuSpar (palpitations) Coconut Oil [...] you for choosing us for your care. [facility] Medicine Office/Clinic Noteon 09-26-0921Igpiio Medicine Office/Clinic NoteNew [facility] Medicine Office/Clinic Note HPI Staff Shazia [...] her previous pcp in July, to the [facility] ED on 09/05/2024 and again on 09/11/2024. She was seen by a provider at [facility] on 09/05/2024 and additional laboratory testing was [...] syndrome) Reviewed notes and laboratory results from [facility] Awaiting results from the Rheumatoid factor & [facility] Awaiting consult information form [facility] MRI scheduled for Thursday f/u in 2 weeks Ordered: gabapentin, 100 mg = 1 cap(s), Oral, TID, # 90 cap(s), Refills(s) 0, Pharmacy: [facility]/pharmacy #[id number], 170, cm, 09/30/24 9:53:00 EST, Height/Length [...] mg Tab gabapen (more content not included)...NormalFisher Western Maryland Hospital CenterComment on above:Result Comment: Electronically Signed By: KURT BALBUENA CNP\.benito\Date and Time Signed: 09/30/24 10:29 Martha Longoria 53-00-7766Bcrhrja [Mass/Vol]68.4 microgram/tUKvgt07.9-57.3Fisher Western Maryland Hospital CenterComment on above:Result Comment: Reference intervals for [...] the Food and Drug Administration. Performed at: [address] [id number] MD Shorty Vides By: #### [id number] ####[facility] [address] [place] [address]AHW 2 Extremitieson 60-55-5242Vjgxsk EMG of the left upper and lower extremityNOMS ContinueCare HospitalFafall river emergency hospital Medicine Office/Clinic Noteon 01-72-9058Kmdhhm Medicine Office/Clinic NoteFafall river emergency hospital Medicine Office/Clinic Note HPI Staff Shazia [...] report she has an appointment today at [facility] for an EMG. She is not sure [...] 04/08/2021 Recorded influenza virus vaccine, inactivated 07/09/2020 RecordedNoHighland District HospitalComment on above:Result Comment: Electronically Signed By: KURT BALBUENA CNP\.br\Date and Time Signed: 09/27/24 12:39 ESTNVC 11-12 Nerveson 51-82-0379Xzknwx EMG of the left upper and lower extremityNOMS HealthcareNOMS HealthcareALL MYOGLOBINon 66-06-7811Xzogfyfcc [Mass/Vol]33 ng/mL9 - 82 ng/mLNOMS HealthcareALL THYROID STIM HORMONEon 56-30-2071GVC Qn1.268 m[IU]/LNOMS HealthcareNo Panel Informationon 81-35-4777ASDCWDEHABODW HealthcareAmbulatory Visit Summaryon 27-89-5917Idvxkepklh Visit SummaryAmbulatory Visit Summary CASSIALINDA MALDONADODION Bach [...] you for choosing us for your care. Doctors HospitalCHEMISTRYOrdered By: SYSTEM SYSTEM on 251705-gapgumulazlffu D3 [Mass/Vol]43.7 ng/eSSyvuwz31.0 - 100.0 ng/mLRemisol ChemCobalamin (Vitamin B12) [Mass/Vol]626 pg/rOCkwdvq72 - 1500 pg/mLRemisol ChemFerritin [Mass/Vol]10 ng/mLLow11 - 307 ng/mLRemisol ChemFolate [Mass/Vol]ng/mLNormal>=6.7ng/mLRemisol ChemIron [Mass/Vol]124 ug/dQAkqrqd38 - 153 mcg/dLRemisol ChemIron binding capacity [Mass/Vol]455 ug/xMQrfj882 - 400 mcg/dLRemisol ChemMagnesium [Mass/Vol]2.2 mg/dLNormal1.3 - 2.4 mg/dLRemisol Chem Transferrin [Mass/Vol]325 mg/qWUfkojm527 - 370 mg/dLRemisol ChemFamily Medicine Office/Clinic Noteon 31-89-8921Ghdxdv Medicine Office/Clinic NoteFami Medicine Office/Clinic Note HPI [...] for a full Vitamin panel. ER visit [facility] - malnutrition Gave magnesium pill [...] the ED. She reports [facility] and it was recommended that she be [...] Folate Level Iron Level Lab Specimen Collect 09771 Magnesium Level TIBC Calculated Vitamin A Level [...] Endoscopic plantar fasciotomy (06/02/ (more content not included)...NormalLima Memorial HospitalComment on above:Result Comment: Electronically Signed By: KURT BALBUENA CNP\.benito\Date and Time Signed: 09/20/24 11:15 ESTFerritinon 92-96-2048Oltnocaj [Mass/Vol]10 ng/rMDhc83-562 Lima Memorial HospitalComment on above:Performed By: #### [id number] #### [facility] [address] [place], [place] [address]Tjowzkqg 63-26-4216Xlfxsx [Mass/Vol]ng/mLNormal>=6.7FKettering Memorial HospitalComment on above:Performed By: #### [id number] #### [facility] [address] [place], [place] [address]Hcmngf 62-41-2715Fwnq [Mass/Vol]124 microgram/fRDlyqmf27-596 [facility] Memorial HospitalComment on above:Performed By: #### [id number] #### [facility] [address] [place], [place] [address]Yxmosgqbohc 41-96-1144Bvoiqhvnp [Mass/Vol]2.2 mg/dLNormal 1.3-2.4FKettering Memorial HospitalComment on above:Performed By: #### [id number] #### [facility] [address] [place], [place] [address]WHOT Calculatedon 62-80-8749Jwmz binding capacity [Mass/Vol]455 microgram/jDIpsw672-819GphdiwLima Memorial HospitalComment on above:Performed By: #### [id number] #### [facility] [address] [place], [place] [address]Yejbtwezwak [Mass/Vol]325 mg/iPManojr243-065BebvvvLima Memorial HospitalComment on above:Performed By: #### [id number] #### [facility] [address] [place], [place] [address]Fac B12on 23-66-4941Kudxgewzz (Vitamin B12) [Mass/Vol]626 pg/mL Uafusc94-3904MbqclzLima Memorial HospitalComment on above:Performed By: #### [id number] #### [facility] [address] [place], [place] [address]Tdtafeb D 25 Hydroxyon 39-64-895461797272-rezenvlksnfmpa D3 [Mass/Vol]43.7 ng/lBKhlwdc52.0-100.0Lima Memorial HospitalComment on above: Performed By: #### [id number] #### [facility] [address] [place], [place] [address]Uyafzsr aminotransferase [Enzymatic activity/volume] in Serum or PlasmaOrdered By: Sailaja Anderson on 21-96-4803WIM [Catalytic activity/Vol] Alanine aminotransferase [Enzymatic activity/volume] in Serum or Plasma [facility] Southeast OhioAlbumin [Mass/volume] in Serum or Plasma by Bromocresol green (BCG) dye binding methoOrdered By: Sailaja Anderson on 72-81-4859Ntwtxkf BCG dye [Mass/Vol]Albumin [Mass/volume] in Serum or Plasma by Bromocresol green (BCG) dye binding metho3.5-5.7FLima Memorial HospitalAlkaline phosphatase [Enzymatic activity/volume] in Serum or PlasmaOrdered By: Sailaja Anderson on 81-18-9578AYZ [Catalytic activity/Vol]Alkaline phosphatase [Enzymatic activity/volume] in Serum or Qouytj27-856GxuhhnuofSelect Medical Specialty Hospital - Southeast OhioAmphetamine Screen Ql (U)Ordered By: Sailaja Anderson on 60-81-6369Ackhtbmpudsp Ql (U)Amphetamines screenNegativeSelect Medical Specialty Hospital - Southeast OhioAppearance of UrineOrdered By: Sailaja Anderson on 09-15-2024 Appearance (U)Urine appearanceCleHolzer HospitalAspartate aminotransferase [Enzymatic activity/volume] in Serum or PlasmaOrdered By: Sailaja Anderson on 79-39-0822MMT [Catalytic activity/Vol]Aspartate aminotransferase [Enzymatic activity/volume] in Serum or Znrftd22-18BqjxnohshSelect Medical Specialty Hospital - Southeast OhioBacteria [Presence] in Urine by AutomatedOrdered By: Sailaja Anderson on 86-71-6695Fiakulhf Auto Ql (U)Bacteria [Presence] in Urine by AutomatedNone SeenSelect Medical Specialty Hospital - Southeast OhioBarbiturates [Presence] in Urine by Screen methodOrdered By: Sailaja Anderson on 79-68-2831Cexulvymuweq Screen Ql (U)Barbiturates [Presence] in Urine by Screen methodNegRegency Hospital ToledoBasophils Auto (Bld) [#/Vol]Ordered By: Sailaja Anderson on 16-09-1766Pqfmbxmus (Bld) [#/Vol]Automated basophil count0.0-0.2FLima Memorial HospitalBasophils/100 WBC Auto (Bld)Ordered By: Sailaja Anderson on 70-91-7155Qjmiefkmn/100 WBC (Bld)Automated basophil %.[facility] Southeast OhioBenzodiazepines Screen Ql (U)Ordered By: Sailaja Anderson on 80-33-0046Vtgehepbyipfpfj Ql (U)Benzodiazepines [Presence] in Urine by Screen methodNegRegency Hospital ToledoBenzoylecgonine [Presence] in Urine by Screen methodOrdered By: Sailaja Anderson on 78-57-7406Poxppopctjyqpbe Screen Ql (U)Benzoylecgonine [Presence] in Urine by Screen methodNegative [facility] Southeast OhioBilirubin Test strip Ql (U)Ordered By: Sailaja Anderson on 48-79-5374Bbvoiczsc Ql (U)Bilirubin.total [Presence] in Urine by Test stripNegativeSelect Medical Specialty Hospital - Southeast OhioBilirubin.total [Mass/volume] in Serum or PlasmaOrdered By: Sailaja Anderson on 42-95-4676Jxpmmiwrc [Mass/Vol] Bilirubin.total [Mass/volume] in Serum or Plasma0.3-1.0[facility] Southeast OhioCT angio headon 95-24-8350OC angio [facility] [place] [address] CT Scan Report Signed Patient: Shazia Chou MR#: [id number] : 1990 Acct:[id number] Age/Sex: 33 / F ADM Date: 09/15/24 Loc: ER Room: Type[facility] ER Attending Dr: Copies to: Sailaja Anderson APRN Ordering Provider: Sailaja Anderson APRN Date of Service: 09/15/24 CT/CT angio head: weakness ([id number]) CT/CT angio neck: weakness ([id number]) CT/CT head/brain wo con: weakness CT head/brain [...] Wiley Shetty M.D.09/15/2024 3:56 PM Dictation Location: [place] [address] Transcribed By: [facility] 09/15/24 1556 Dictated By: Wiley Shetty II, MD 09/15/24 1546 Signed By: 09/15/24 1556[facility] Physician GroupCalcium [Mass/volume] in Serum or PlasmaOrdered By: Sailaja Anderson on 59-40-3070Xmlldoj [Mass/Vol]Calcium [Mass/volume] in Serum or Plasma8.6-10.3[facility] Cannabinoids [Presence] in Urine by Screen methodOrdered By: Sailaja Anderson on 16-53-0700Vorqvsmnivig Screen Ql (U)Cannabinoids [Presence] in Urine by Screen methodNegativeSelect Medical Specialty Hospital - Southeast OhioComment on above:These are unconfirmed results and should not be used for legal purposes. Drug Cut-Off Concentration: AMPH 1000 ng/mL OPAL 200 ng/mL AURELIANO 200 ng/mL COCM 300 ng/mL OP 300 ng/mL PCP 25 ng/mL THC 20 ng/mLCarbon dioxide, total [Moles/volume] in Serum or PlasmaOrdered By: Sailaja Anderson on 82-36-8077LB9 [Moles/Vol]Carbon dioxide, total [Moles/volume] in Serum or Vjchrn12.0-31.0[facility] Southeast OhioChloride [Moles/volume] in Serum or PlasmaOrdered By: Sailaja Anderson on 98-25-1778Nrjdpofc [Moles/Vol]Chloride [Moles/volume] in Serum or Omyqcr26-800CrqvbqckvSelect Medical Specialty Hospital - Southeast OhioColor Auto (U)Ordered By: Sailaja Anderson on 04-64-4326Nawrm (U)Color of Urine by AutoYellowSelect Medical Specialty Hospital - Southeast OhioComplete Blood Count Auto Diffon 27-70-5082Bsjyrnutx (Bld) [#/Vol] 0.1 10*3/uLNormal0.0-0.2The [facility] Physician GroupComment on above:Result Comment: PERFORMED BY: [place] [address] PATHOLOGIST EDGING SUPERVISOR CARLOS KNAPP M.D.Performed By: #### CMP, CK, HS TROP, CBC #### [facility] [address] [place] [address] USABasophils/100 WBC (Bld)0.7 %Normal.The [facility] Physician GroupComment on above:Performed By: #### CMP, CK, HS TROP, CBC #### [facility] [address] [place] [id number] USAEosinophils (Bld) [#/Vol]0.2 10*3/uLNormal0.0-0.45The [facility] Physician GroupComment on above:Performed By: #### CMP, CK, HS TROP, CBC #### [place] [address] USAEosinophils/100 WBC (Bld)2.4 %Normal.The [facility] Physician GroupComment on above:Performed By: #### CMP, CK, HS TROP, CBC #### [place] [address] USAErythrocyte distribution width (RBC) [Ratio]16.9 %High 11.9-15.3The [facility] Physician GroupComment on above:Performed By: #### CMP, CK, HS TROP, CBC #### [place] [address] USAHematocrit (Bld) [Volume fraction]35.6 %Pfywai07.0-46.4The [facility] Physician GroupComment on above:Performed By: #### CMP, CK, HS TROP, CBC #### [place] [address] USAHemoglobin (Bld) [Mass/Vol]12.1 g/nARhmgmz87.8-15.4The [facility] Physician GroupComment on above:Performed By: #### CMP, CK, HS TROP, CBC #### [place] [address] USALymphocytes (Bld) [#/Vol]2.3 10*3/uLNormal1.00-4.8The [facility] Physician GroupComment on above:Performed By: #### CMP, CK, HS TROP, CBC #### [place] [address] USALymphocytes/100 WBC (Bld)26.3 %Normal.The [facility] Physician GroupComment on above:Performed By: #### CMP, CK, HS TROP, CBC #### [place] [address] USAMCH (RBC) [Entitic mass]32.5 fjIzbfok88.7-34.3The [facility] Physician GroupComment on above:Performed By: #### CMP, CK, HS TROP, CBC #### [facility] [address] [place] [address] USAMCV (RBC) [Entitic vol]96.0 qXGwqhjp24-446Mlf [facility] Physician GroupComment on above:Performed By: #### CMP, CK, HS TROP, CBC #### [place] [address] USAMean Corpuscular HGB Conc33.9 g/vCQlirkg29.0-35.0The [facility] Physician GroupComment on above:Performed By: #### CMP, CK, HS TROP, CBC #### [place] [address] USAMonocytes (Bld) [#/Vol]0.7 10*3/uLNormal0.0-0.8The [facility] Physician GroupComment on above:Performed By: #### CMP, CK, HS TROP, CBC #### [place] [address] USAMonocytes/100 WBC (Bld)17.55 %Normal0.00-20.00The [facility] Physician GroupComment on above:Performed By: #### CMP, CK, HS TROP, CBC #### [place] [address] USAMonocytes/100 WBC (Bld)7.8 %Normal.The [facility] Physician GroupComment on above:Performed By: #### CMP, CK, HS TROP, CBC #### [place] [address] USANeutrophils (Bld) [#/Vol]5.4 10*3/uLNormal1.8-7.7The [facility] Physician GroupComment on above:Performed By: #### CMP, CK, HS TROP, CBC #### [place] [address] USANeutrophils/100 WBC (Bld)62.8 %Normal.The [facility] Physician GroupComment on above:Performed By: #### CMP, CK, HS TROP, CBC #### [place] [address] USANRBC%0.1 /100{WBC}Normal0-0.5The [facility]ician Group Comment on above:Performed By: #### CMP, CK, HS TROP, CBC #### [place] [address] USAPlatelet mean volume (Bld) [Entitic vol]9.2 fLNormal 6.3-10.7The [facility] Physician GroupComment on above:Performed By: #### CMP, CK, HS TROP, CBC #### [place] [address] USAPlatelets (Bld) [#/Vol]292 10*3/bVAlqzno575-045Hwm [facility] Physician GroupComment on above:Performed By: #### CMP, CK, HS TROP, CBC #### [place] [address] USARBC (Bld) [#/Vol]3.71 10*6/uLNormal3.60-5.00The [facility] Physician GroupComment on above:Performed By: #### CMP, CK, HS TROP, CBC #### [place] [address] USAWBC (Bld) [#/Vol]8.6 10*3/uLNormal3.8-11.6The [facility] Physician GroupComment on above:Performed By: #### CMP, CK, HS TROP, CBC #### [place] [address] USAComprehensive Metabolic Panelon 87-40-3255Xieaxmn [Mass/Vol]3.8 g/dLNormal3.5-5.7The [facility] Physician GroupComment on above: Performed By: #### ANTIR, ADNA, SJOGRENS, HELM, C3, HISAB, CCP, CHROMATIN, CENTROME, RA, CH50, CYNDI, [id number], JO1, B2 GLYPROT, CARDIO GMA, C4 #### [facility] ,Albumin/Globulin [Mass ratio]1.5 {ratio}NormalThe [facility] Physician [facility] Comment on above:Performed By: #### ANTIR, ADNA, SJOGRENS, HELM, C3, HISAB, CCP, CHROMATIN, CENTROME, RA, CH50, CYNDI, [id number], JO1, B2 GLYPROT, CARDIO GMA, C4 #### [facility] ,ALP [Catalytic activity/Vol]53 U/LSfxhck19-777Bno [facility] Group Comment on above:Performed By: #### ANTIR, ADNA, SJOGRENS, HELM, C3, HISAB, CCP, CHROMATIN, CENTROME, RA, CH50, CYNDI, [id number], JO1, B2 GLYPROT, CARDIO GMA, C4 #### [facility] ,ALT [Catalytic activity/Vol]15 U/LNormal7-52The [facility] Comment on above:Performed By: #### ANTIR, ADNA, SJOGRENS, HELM, C3, HISAB, CCP, CHROMATIN, CENTROME, RA, CH50, CYNDI, [id number], JO1, B2 GLYPROT, CARDIO GMA, C4 #### [facility] ,Anion gap [Moles/Vol]8.3 mmol/LNormal6.0-15.0The [facility] Comment on above:Performed By: #### ANTIR, ADNA, SJOGRENS, HELM, C3, HISAB, CCP, CHROMATIN, CENTROME, RA, CH50, CYNDI, [id number], JO1, B2 GLYPROT, CARDIO GMA, C4 #### [facility] ,AST [Catalytic activity/Vol]16 U/NIbajtm19-34Ked [facility] Group Comment on above:Performed By: #### ANTIR, ADNA, SJOGRENS, HELM, C3, HISAB, CCP, CHROMATIN, CENTROME, RA, CH50, CYNDI, [id number], JO1, B2 GLYPROT, CARDIO GMA, C4 #### [facility] ,Bilirubin [Mass/Vol]0.3 mg/dLNormal0.3-1.0The [facility] Physician GroupComment on above:Performed By: #### ANTIR, ADNA, SJOGRENS, HELM, C3, HISAB, CCP, CHROMATIN, CENTROME, RA, CH50, CYNDI, [id number], JO1, B2 GLYPROT, CARDIO GMA, C4 #### [facility] ,Calcium [Mass/Vol]9.0 mg/dLNormal8.6-10.3The [facility] Physician GroupComment on above:Performed By: #### ANTIR, ADNA, SJOGRENS, HELM, C3, HISAB, CCP, CHROMATIN, CENTROME, RA, CH50, CYNDI, [id number], JO1, B2 GLYPROT, CARDIO GMA, C4 #### [facility] ,Chloride [Moles/Vol]107 mmol/BNvrwar61-507Pfl [facility] Physician GroupComment on above:Performed By: #### ANTIR, ADNA, SJOGRENS, HELM, C3, HISAB, CCP, CHROMATIN, CENTROME, RA, CH50, CYNDI, [id number], JO1, B2 GLYPROT, CARDIO GMA, C4 #### [facility] ,CO2 [Moles/Vol]26.2 mmol/XUvvvgl43.0-31.0[facility] Physician GroupComment on above:Performed By: #### ANTIR, ADNA, SJOGRENS, HELM, C3, HISAB, CCP, CHROMATIN, CENTROME, RA, CH50, CYNDI, [id number], JO1, B2 GLYPROT, CARDIO GMA, C4 #### [facility] ,Creatinine [Mass/Vol]0.57 mg/dLLow0.60-1.20The [facility] Physician GroupComment on above:Performed By: #### ANTIR, ADNA, SJOGRENS, HELM, C3, HISAB, CCP, CHROMATIN, CENTROME, RA, CH50, CYNDI, [id number], JO1, B2 GLYPROT, CARDIO GMA, C4 #### [facility] ,Creatinine Clr Calc Wpqepall482.80NormalThe [facility] Physician GroupComment on above:Performed By: #### ANTIR, ADNA, SJOGRENS, HELM, C3, HISAB, CCP, CHROMATIN, CENTROME, RA, CH50, CYNDI, [id number], JO1, B2 GLYPROT, CARDIO GMA, C4 #### [facility] ,GFR/1.73 sq M.predicted MDRD (S/P/Bld) [Vol rate/Area]mL/min/{1.73_m2}NormalThe [facility] Physician GroupComment on above:Performed By: #### ANTIR, ADNA, SJOGRENS, HELM, C3, HISAB, CCP, CHROMATIN, CENTROME, RA, CH50, CYNDI, [id number], JO1, B2 GLYPROT, CARDIO GMA, C4 #### [facility] ,Globulin (S) [Mass/Vol]2.6 g/dLNormalThe [facility] Physician GroupComment on above:Performed By: #### ANTIR, ADNA, SJOGRENS, HELM, C3, HISAB, CCP, CHROMATIN, CENTROME, RA, CH50, CYNDI, [id number], JO1, B2 GLYPROT, CARDIO GMA, C4 #### [facility] ,Glucose [Mass/Vol]87 mg/fRGgjkij36-430Zvo [facility] Physician GroupComment on above:Result Comment: Random Glucose Reference Range is dependent on time and content of last meal. Glucose of more than 200 mg/dL in a nonstressed, ambulatory subject supports the diagnosis of Diabetes Mellitus. ADA recommended reference rangePerformed By: #### ANTIR, ADNA, SJOGRENS, HELM, C3, HISAB, CCP, CHROMATIN, CENTROME, RA, CH50, CYNDI, [id number], JO1, B2 GLYPROT, CARDIO GMA, C4 #### [facility] ,Potassium [Moles/Vol]3.5 mmol/LNormal3.5-5.1The [facility] Comment on above:Performed By: #### ANTIR, ADNA, SJOGRENS, HELM, C3, HISAB, CCP, CHROMATIN, CENTROME, RA, CH50, CYNDI, [id number], JO1, B2 GLYPROT, CARDIO GMA, C4 #### [facility] ,Protein [Mass/Vol]6.4 g/dLNormal6.4-8.9The [facility] Physician GroupComment on above:Performed By: #### ANTIR, ADNA, SJOGRENS, HELM, C3, HISAB, CCP, CHROMATIN, CENTROME, RA, CH50, CYNDI, [id number], JO1, B2 GLYPROT, CARDIO GMA, C4 #### [facility] ,Sodium [Moles/Vol]138 mmol/JMdcjpu796-023Qgn [facility] Physician GroupComment on above:Performed By: #### ANTIR, ADNA, SJOGRENS, HELM, C3, HISAB, CCP, CHROMATIN, CENTROME, RA, CH50, CYNDI, [id number], JO1, B2 GLYPROT, CARDIO GMA, C4 #### [facility] ,Urea nitrogen [Mass/Vol]6 mg/dLLow7-25The [facility] Physician GroupComment on above:Performed By: #### ANTIR, ADNA, SJOGRENS, HELM, C3, HISAB, CCP, CHROMATIN, CENTROME, RA, CH50, CYNDI, [id number], JO1, B2 GLYPROT, CARDIO GMA, C4 #### [facility] ,Creatinine [Mass/volume] in Serum or PlasmaOrdered By: Sailaja Anderson on 07-54-5501Luglkvfgaq [Mass/Vol]Creatinine [Mass/volume] in Serum or PlasmaLow 0.60-1.20[facility] Southeast OhioDipstick and Microscopicon 09-15-2024 Appearance (U)ClearNormalClearThe [facility] Physician GroupComment on above: Order Comment: Name Collection Type:: Clean-Voided MidstreamPerformed By: #### CMP, CK, HS TROP, CBC #### [facility] [address] [place] [id number] USABacteria,UrineNone SeenNormalNone SeenThe [facility] Physician GroupComment on above:Order Comment: Name Collection Type:: Clean- Voided MidstreamPerformed By: #### CMP, CK, HS TROP, CBC #### [facility] [address] [place] [address] USABilirubin,UrineNegativeNormalNegativeThe [facility] Physician GroupComment on above:Order Comment: Name Collection Type:: Clean- Voided MidstreamPerformed By: #### CMP, CK, HS TROP, CBC #### [facility] [address] [place], [place] [id number] USAColor (U)YellowNormalYellowCoral Gables Hospital Physician Group Comment on above:Order Comment: Name Collection Type:: Clean-Voided Midstream Performed By: #### CMP, CK, HS TROP, CBC #### [facility] [address] [place] [address] USAGlucose Ql (U)NormalNormalNormalThBingham Memorial Hospital Physician GroupComment on above:Order Comment: Name Collection Type:: Clean-Voided MidstreamPerformed By: #### CMP, CK, HS TROP, CBC #### [facility] [address] [place] [address] USAHyaline Casts,UrineNoneNormal0-8The [facility] Physician GroupComment on above:Order Comment: Name Collection Type:: Clean-Voided MidstreamPerformed By: #### CMP, CK, HS TROP, CBC #### [facility] [address] [place] [address] USAKetones Ql (U)1+HighNegativeCoral Gables Hospital Physician Group Comment on above:Order Comment: Name Collection Type:: Clean-Voided Midstream Performed By: #### CMP, CK, HS TROP, CBC #### [facility] [address] [place], [place] [id number] USALeukocyte esterase Test strip Ql (U)NegativeNormalNegative [facility] Physician GroupComment on above:Order Comment: Name Collection Type:: Clean-Voided MidstreamPerformed By: #### CMP, CK, HS TROP, CBC #### [facility] [address] [place] [address] USAMucus,UrineRareNormalCoral Gables Hospital Physician GroupComment on above:Order Comment: Name Collection Type:: Clean-Voided MidstreamPerformed By: #### CMP, CK, HS TROP, CBC #### [facility] [address] [place] [address] USANitrite,UrineNegativeNormalNegativeCoral Gables Hospital Physician GroupComment on above:Order Comment: Name Collection Type:: Clean-Voided MidstreamPerformed By: #### CMP, CK, HS TROP, CBC #### [place] [address] USAOccult Blood,UrineNegativeNormalNegativeThe [facility] Physician GroupComment on above:Order Comment: Name Collection Type:: Clean- Voided MidstreamPerformed By: #### CMP, CK, HS TROP, CBC #### [place] [address] USApH (U)7.0 [pH]Normal5.0-9.0The [facility] Comment on above:Order Comment: Name Collection Type:: Clean-Voided Midstream Performed By: #### CMP, CK, HS TROP, CBC #### [place] [address] USAProtein,UrineTraceHighNegativeThe [facility] Physician GroupComment on above:Order Comment: Name Collection Type:: Clean-Voided MidstreamPerformed By: #### CMP, CK, HS TROP, CBC #### [place] [address] USARBC,Urine1 [HPF]Normal0-4The [facility] Comment on above:Order Comment: Name Collection Type:: Clean-Voided Midstream Performed By: #### CMP, CK, HS TROP, CBC #### [place] [address] USASpecificy Clifford,Urine1.704Iindjc6.001-1.030The [facility] Physician GroupComment on above:Order Comment: Name Collection Type:: Clean- Voided MidstreamPerformed By: #### CMP, CK, HS TROP, CBC #### [place] [address] USASquamous Epithelial Cell,Urine3 [HPF]High0-2The [facility] Physician GroupComment on above:Order Comment: Name Collection Type:: Clean- Voided MidstreamPerformed By: #### CMP, CK, HS TROP, CBC #### [place] [address] USAUrobilinogen,Urine2 mg/dLHighNormalThe [facility] Physician GroupComment on above:Order Comment: Name Collection Type:: Clean-Voided MidstreamPerformed By: #### CMP, CK, HS TROP, CBC #### [place] [address] USAWBC,Urine1 [HPF]Normal0-4The [facility] Comment on above:Order Comment: Name Collection Type:: Clean-Voided Midstream Performed By: #### CMP, CK, HS TROP, CBC #### [place] [address] USADrug Screen,Urineon 15-09-3350Khsqelcfqeu Screen,Urine NegativeNormalNegativeThe [facility] Physician GroupComment on above:Performed By: #### CMP, CK, HS TROP, CBC #### [place] [address] USABarbiturate Screen,UrineNegativeNormalNegativeThe [facility] Physician GroupComment on above:Performed By: #### CMP, CK, HS TROP, CBC #### [place] [address] USABenzodiazepines Screen,UrineNegativeNormalNegativeCoral [facility] Hospital Physician GroupComment on above:Performed By: #### CMP, CK, HS TROP, CBC #### [place] [address] USACannabinoid Screen,UrineNegativeNormalNegativeThe [facility] Physician GroupComment on above:Result Comment: These are unconfirmed results and should not be used for legal purposes. Drug Cut-Off Concentration: AMPH 1000 ng/mL OPAL 200 ng/mL AURELIANO 200 ng/mL COCM 300 ng/mL OP 300 ng/mL PCP 25 ng/mL THC 20 ng/mL PERFORMED BY: [place] [address] PATHOLOGIST EDGING SUPERVISOR CARLOS KNAPP M.D.Performed By: #### CMP, CK, HS TROP, CBC #### [place] [address] USACocaine Screen,UrineNegativeNormalNegativeThe [facility] Physician GroupComment on above:Performed By: #### CMP, CK, HS TROP, CBC #### [facility] [address] [place] [address] USAOpiate Screen,UrineNegativeNormalNegativeCoral [facility]ables Hospital Physician GroupComment on above:Performed By: #### CMP, CK, HS TROP, CBC #### [facility] [address] [place] [address] USAPhencyclidine Screen,UrineNegativeNormalNegativeThe [facility] Physician GroupComment on above:Performed By: #### CMP, CK, HS TROP, CBC #### [facility] [address] [place] [id number] USAECG 12 lead ECGon 76-85-7275QYW 12 lead ECGSYCAMORE [facility] Main [place] [address] [place] [address] Electrocardiograph Report Signed Patient: Shazia Chou MR#: [id number] : 1990 Acct:[id number] Age/Sex: 33 / F ADM Date: 09/15/24 Loc: ER Room: [facility] ER Attending Dr: Ordering Provider: [...] needs review Confirmed by Agus Hooper DO ([id number]) on 09/15/2024 3:29:15 PM Referred By: Electronically Signed By: Agus Hooper DO Transcribed By: MUS Signed By Agus Hooper DO 5 1529[facility] Physician GroupEosinophils Auto (Bld) [#/Vol]Ordered By: Sailaja Anderson on 52-36-4460Szuwsbyjehq (Bld) [#/Vol]Automated eosinophil count0.0-0.45Fire[facility] Regional Medical CenterEosinophils/100 WBC Auto (Bld) Ordered By: Sailaja Anderson on 19-78-8946Gacoyhwsabo/100 WBC (Bld)Automated eosinophil %.[facility] OhioEpithelial cells.squamous [#/area] in Urine sediment by Automated countOrdered By: Sailaja Anderson on 09-15-2024 Epithelial cells.squamous Auto (Urine sed) [#/Area]Epithelial cells.squamous [#/area] in Urine sediment by Automated countHigh0-2FLima Memorial HospitalErythrocyte Sedimentation Rateon 77-01-7567HNL (Bld) [Velocity]7 mm/h Normal0-19The [facility] Physician GroupComment on above:Result Comment: PERFORMED BY: [facility] [address] [place] [address] PATHOLOGIST EDGING SUPERVISOR CARLOS KNAPP M.D.Performed By: #### ANTIR, ADNA, SJOGRENS, HELM, C3, HISAB, CCP, CHROMATIN, CENTROME, RA, CH50, CYNDI, [id number], JO1, B2 GLYPROT, CARDIO GMA, C4 #### [facility] ,Erythrocyte distribution width Auto (RBC) [Ratio]Ordered By: Sailaja Anderson on 85-55-6378Wilmmicazdm distribution width (RBC) [Ratio]Erythrocyte distribution width [Ratio] by Automated cgdsrIvtc47.9-15.3FLima [facility] Hospital Erythrocyte sedimentation rate by Photometric methodOrdered By: Sailaja Anderson on 87-08-8762UYU Photometric method (Bld) [Velocity]Erythrocyte sedimentation rate by Photometric method0[facility] OhioErythrocytes [#/area] in Urine sediment by Automated countOrdered By: Sailaja Anderson on 53-26-7608UQA Auto (Urine sed) [#/Area]Erythrocytes [#/area] in Urine sediment by Automated count0-Lima Memorial HospitalEthanol [Mass/volume] in Serum or PlasmaOrdered By: Sailaja Anderson on 01-33-2486Esvggvz [Mass/Vol] Ethanol [Mass/volume] in Serum or PlasmaSelect Medical Specialty Hospital - Southeast OhioComment on above:Test not performedEthyl Alcohol Profileon 44-31-8298Gjxmhmv [Mass/Vol] mg/dLNoCarolinaEast Medical Center Physician GroupComment on above:Performed By: #### ANTIR, ADNA, SJOGRENS, HELM, C3, HISAB, CCP, CHROMATIN, CENTROME, RA, CH50, CYNDI, [id number], JO1, B2 GLYPROT, CARDIO GMA, C4 #### [facility] ,Percent EthanolNot performedNoCarolinaEast Medical Center Physician GroupComment on above:Result Comment: PERFORMED BY: [facility] [address] [place] [address] PATHOLOGIST EDGING SUPERVISOR CARLOS KNAPP M.D.Performed By: #### ANTIR, ADNA, SJOGRENS, HELM, C3, HISAB, CCP, CHROMATIN, CENTROME, RA, CH50, CYNDI, [id number], JO1, B2 GLYPROT, CARDIO GMA, C4 #### [facility] ,Family Medicine Office/Clinic Noteon 00-00-6514Ygzpdk Medicine Office/Clinic NoteFafall river emergency hospital Medicine Office/Clinic Note Chief Complaint New Pt HPI Staff Pt is a new pt. Presenting today to establish care. Establish Care: History: Any previous diagnosis: Iron deficiency anemia History of seeing any specialist: general surgery for lump on breast & cardiology When was your last doctors visit: 07/2024 Last provider: Mia PERRY Any recent labs: done @ [facility] ER 09/05/24 Health Maintenance UTD: Colonoscopy: NA Mammogram: 12/09/23 [facility] [place] Pelvic/Pap: 12/05 following hysterectomy, states she was told she no longer needs them Acute: Current issues/complaints: Iron deficiency anemia & fatigue. Leg & Arm weakness. Skin discoloration & hair falling off. PHQ9 23 Biggest concern is increased weakness. History of Present Illness 33 year old patient presents to establish care and to discuss generalized progressive weakness. Radha the weakness started about 5-6 weeks ago and has become progressively worse. She reports she went to her previous pcp in July, to the [facility] ED on 09/05/2024 and again on 09/11/2024. She reports she was at [facility] last week and they performed a bunch of laboratory testing that came back negative. She was seen at in [place] on 09/13/2024 for chest pain and this [...] unspecified site) Reviewed the discharge summary from [facility]- CMP, CRP, ESR, & CBC - WNL Reviewed the Echo from in [place] on the 13 of September- Normal results Awaiting additional records from providers f/u after consult with neurology Ordered: [facility] [place] External Ambulatory Referral 2. Balance problem (R26.89: Other abnormalities of gait and mobility) Reviewed the discharge summary from [facility]- CMP, CRP, ESR, & CBC - WNL Reviewed the Echo from in [place] on the 13 of September- Normal results Awaiting additional records from providers f/u after consult with neurology Ordered: [facility] [place] External Ambulatory Referral 3. Encounter to establish [...] medical support in addres (more content not included)...Doctors HospitalComment on above:Result Comment: Electronically Signed By: KURT BALBUENA CNP\.benito\Date and Time Signed: 09/15/24 14:31 ESTFree T4 (Free Thyroxine)on 82-34-5273Lnst T4 [Mass/Vol]1.02 ng/dLNormal0.61-1.12The [facility] Physician GroupComment on above:Performed By: #### ANTIR, ADNA, SJOGRENS, HELM, C3, HISAB, CCP, CHROMATIN, CENTROME, RA, CH50, CYNDI, [id number], JO1, B2 GLYPROT, CARDIO GMA, C4 #### [facility] ,Globulin Calc (S) [Mass/Vol]Ordered By: Sailaja Anderson on 38-29-2510Fjmofwvh (S) [Mass/Vol]Serum globulin measurement by calculation (mass/volume)[facility] OhioGlucose [Mass/volume] in Serum or PlasmaOrdered By: Sailaja Anderson on 02-14-5344Ynllgqm [Mass/Vol]Glucose [Mass/volume] in Serum or Tbronq76-115BadxoutyiSelect Medical Specialty Hospital - Southeast OhioComment on above:ADA recommended reference rangeRandom Glucose Reference Range is dependent on time and content of last meal. Glucose of more than 200 mg/dL in a nonstressed, ambulatory subject supports the diagnosisof Diabetes Mellitus.Glucose [Mass/volume] in Urine by Test stripOrdered By: Sailaja Anderson on 93-55-0026Eunfuxo Test strip (U) [Mass/Vol]Glucose [Mass/volume] in Urine by Test stripNormalSelect Medical Specialty Hospital - Southeast OhioHCG ( test) IA.rapid Ql (U)Ordered By: Sailaja Anderson on 10-46-9159IMG ( test) Ql (U)Urine human chorionic gonadotropin (hCG) detection by immunoassaySelect Medical Specialty Hospital - [facility] [place] HCG,Urineon 76-45-4248Yojw HCG ( test) Ql (U)NegativeNoCarolinaEast Medical Center Physician GroupComment on above:Order Comment: Name Collection Type:: Clean-Voided MidstreamResult Comment: PERFORMED BY: [place] [address] PATHOLOGIST EDGING SUPERVISOR CARLOS KNAPP M.D.Performed By: #### CMP, CK, HS TROP, CBC #### [place] [address] USAHematocrit Auto (Bld) [Volume fraction]Ordered By: Sailaja Anderson on 48-36-9516Suvyjxvuhr (Bld) [Volume fraction]Hematocrit [Volume Fraction] of Blood by Automated count34.0-46.4FLima Memorial HospitalHemoglobin Test strip Ql (U)Ordered By: Sailaja Anderson on 09-15-2024 Hemoglobin Ql (U)Hemoglobin [Presence] in Urine by Test stripNegRegency Hospital ToledoHemoglobin [Mass/volume] in BloodOrdered By: Sailaja Anderson on 19-43-1310Icmtjaresb (Bld) [Mass/Vol]Hemoglobin [Mass/volume] in Blood 11.8-15.4FLima Memorial HospitalHyaline casts [#/area] in Urine sediment by Automated countOrdered By: Sailaja Anderson on 39-47-3062Ggnbhbj casts Auto (Urine sed) [#/Area]Hyaline casts [#/area] in Urine sediment by Automated count0-8[facility] OhioINR in Platelet poor plasma by Coagulation assayOrdered By: Sailaja Anderson on 65-65-8799IWY Coag (PPP) [Relative time]INR in Platelet poor plasma by Coagulation assaySelect Medical Specialty Hospital - Southeast OhioComment on above:INR Therapeutic Range A) Pre- and [...] strip Ql (U)Ordered By: Sailaja Anderson on 49-79-9254Kzukpdb Ql (U)Ketones [Presence] in Urine by Test stripHighNegRegency Hospital ToledoLeukocyte esterase [Presence] in Urine by Test stripOrdered By: Sailaja Anderson on 09-15-2024 Leukocyte esterase Test strip Ql (U)Leukocyte esterase [Presence] in Urine by Test stripNegRegency Hospital ToledoLeukocytes [#/area] in Urine sediment by Automated countOrdered By: Sailaja Anderson on 04-11-7635PSE Auto (Urine sed) [#/Area]Leukocytes [#/area] in Urine sediment by Automated count0-4 [facility] OhioLeukocytes [#/volume] corrected for nucleated erythrocytes in Blood by Automated counOrdered By: Sailaja Anderson on 09-15-2024 WBC corrected for nucl RBC Auto (Bld) [#/Vol]Leukocytes [#/volume] corrected for nucleated erythrocytes in Blood by Automated coun3.8-11.6FLima Memorial HospitalLymphocytes Auto (Bld) [#/Vol]Ordered By: Sailaja Anderson on 43-55-5749Mlabzzigjdl (Bld) [#/Vol]Lymphocytes [#/volume] in Blood by Automated count1.00-4.8[facility] Southeast OhioLymphocytes/100 WBC Auto (Bld) Ordered By: Sailaja Anderson on 37-72-3106Uxdgksslysj/100 WBC (Bld) Lymphocytes/100 leukocytes in Blood by Automated count.[facility] HospitalH Auto (RBC) [Entitic mass]Ordered By: Sailaja Anderson on 19-20-6012QOY (RBC) [Entitic mass]MCH [Entitic mass] by Automated count24.7-34.3 [facility] OhioMCHC Auto (RBC) [Mass/Vol]Ordered By: Sailaja Anderson on 21-32-8501LWVP (RBC) [Mass/Vol]MCHC [Mass/volume] by Automated count 32.0-35.0[facility] OhioMCV Auto (RBC) [Entitic vol]Ordered By: Sailaja Anderson on 54-99-3648MSD (RBC) [Entitic vol]MCV [Entitic volume] by Automated -787ImfdmkllvSelect Medical Specialty Hospital - Southeast OhioMagnesiumon 09-15-2024 Magnesium [Mass/Vol]1.7 mg/dLLow1.9-2.7The [facility] Physician GroupComment on above:Performed By: #### ANTIR, ADNA, SJOGRENS, HELM, C3, HISAB, CCP, CHROMATIN, CENTROME, RA, CH50, CYNDI, [id number], JO1, B2 GLYPROT, CARDIO GMA, C4 #### [facility] ,Magnesium [Mass/volume] in Serum or PlasmaOrdered By: Sailaja Anderson on 03-02-8482Tqnvtcomk [Mass/Vol]Magnesium [Mass/volume] in Serum or PlasmaLow 1.9-2.7FLima Memorial HospitalMonocyte distribution width [Entitic volume] in Blood by AutomatedOrdered By: Sailaja Anderson on 36-04-8264Qqyiznao distribution width Auto (Bld) [Entitic vol]Monocyte distribution width [Entitic volume] in Blood by Automated0.00-20.00[facility] Monocytes Auto (Bld) [#/Vol]Ordered By: Sailaja Anderson on 71-49-0017Vtepfrfrm (Bld) [#/Vol]Automated blood monocyte count0.0-0.8[facility] OhioMonocytes/100 WBC Auto (Bld)Ordered By: Sailaja Anderson on 09-15-2024 Monocytes/100 WBC (Bld)Automated monocyte %.[facility] Mucus [Presence] in Urine by AutomatedOrdered By: Sailaja Anderson on 09-15-2024 Mucus Auto Ql (U)Mucus [Presence] in Urine by AutomatedSelect Medical Specialty Hospital - Southeast OhioNeutrophils Auto (Bld) [#/Vol]Ordered By: Sailaja Anderson on 05-87-6405Zqawvwekyti (Bld) [#/Vol]Neutrophils [#/volume] in Blood by Automated count1.8-7.7FLima Memorial HospitalNeutrophils/100 WBC Auto (Bld) Ordered By: Sailaja Anderson on 34-56-2467Nrcahoqdnyr/100 WBC (Bld)Automated neutrophil %.[facility] Southeast OhioNitrite Test strip Ql (U)Ordered By: Sailaja Anderson on 74-21-1750Sinvrqx Ql (U)Nitrite [Presence] in Urine by Test stripNegativeSelect Medical Specialty Hospital - Southeast OhioNo Panel InformationOrdered By: Sailaja Anderson on 26-10-4232Fpldpvdoz GFR (CKD-EPI)> 60.0 mL/MinSelect Medical Specialty Hospital - Southeast OhioPharmacy Creatinine Clearance (Whqd915.80[facility] OhioNucleated erythrocytes [Presence] in Blood by Automated countOrdered By: Sailaja Anderson on 79-30-4620Whmijtzvc RBC Auto Ql (Bld) Nucleated erythrocytes [Presence] in Blood by Automated count0-0.5FLima Memorial HospitalOpiates [Presence] in Urine by Screen methodOrdered By: Sailaja Anderson on 14-84-6468Gycdxdv Screen Ql (U)Opiates [Presence] in Urine by Screen methodNegativeSelect Medical Specialty Hospital - Southeast OhioPartial Thromboplastin Timeon 85-10-7518tSFR Coag (Bld) [Time]28.0 vBttlmv13.1-36.5The [facility] Physician GroupComment on above:Result Comment: A hematocrit value greater than 55% may lead to inaccurate results in coagulation testing. Patients having hematocrit values >55% require a special collection tube for coagulation studies. Please contact the laboratory at [phone] for redraw instructions. PERFORMED BY: [facility] [address] [place] [address] PATHOLOGIST EDGING SUPERVISOR CARLOS KNAPP M.D.Performed By: #### ANTIR, ADNA, SJOGRENS, HELM, C3, HISAB, CCP, CHROMATIN, CENTROME, RA, CH50, CYNDI, WHV39MT, JO1, B2 GLYPROT, CARDIO GMA, C4 #### [facility] ,Phencyclidine Screen Ql (U)Ordered By: Sailaja Anderson on 09-15-2024 Phencyclidine Ql (U)Phencyclidine [Presence] in Urine by Screen methodNegative [facility] OhioPlatelet mean volume Auto (Bld) [Entitic vol] Ordered By: Sailaja Anderson on 76-94-5641Ctjbrhkq mean volume (Bld) [Entitic vol]Platelet mean volume [Entitic volume] in Blood by Automated count6.3-10.7 [facility] Southeast OhioPlatelets Auto (Bld) [#/Vol]Ordered By: Sailaja Anderson on 55-20-1395Xdmzoydmd (Bld) [#/Vol]Platelets [#/volume] in Blood by Automated qmcay038-080OculkqryxSelect Medical Specialty Hospital - Southeast OhioPotassium [Moles/volume] in Serum or PlasmaOrdered By: Sailaja Anderson on 09-15-2024 Potassium [Moles/Vol]Potassium [Moles/volume] in Serum or Plasma3.5-5.1FLima Memorial HospitalProtein Test strip (U) [Mass/Vol]Ordered By: Sailaja Anderson on 96-71-6409Yaoazdx (U) [Mass/Vol]Protein [Mass/volume] in Urine by Test stripHighNegativeSelect Medical Specialty Hospital - Southeast OhioProtein [Mass/volume] in Serum or PlasmaOrdered By: Sailaja Anderson on 83-60-4212Tjevktu [Mass/Vol] Protein [Mass/volume] in Serum or Plasma6.4-8.9[facility] Prothrombin Time INRon 05-84-0079HPW Coag (PPP) [Relative time]0.9 {INR}Normal [facility] Physician GroupComment on above:Result Comment: INR Therapeutic [...] HISAB, CCP, CHROMATIN, CENTROME, RA, CH50, CYNDI, DIU02SP, JO1, B2 GLYPROT, CARDIO GMA, C4 #### [facility] ,PT Coag (PPP) [Time]10.4 sNormal9.0-12.9[facility] Physician GroupComment on above:Result Comment: A hematocrit value greater than 55% may lead to inaccurate results in coagulation testing. Patients having hematocrit values >55% require a special collection tube for coagulation studies. Please contact the laboratory at [phone] for redraw instructions.Performed By: #### ANTIR, ADNA, SJOGRENS, HELM, C3, HISAB, CCP, CHROMATIN, CENTROME, RA, CH50, CYNDI, IEO11CO, JO1, B2 GLYPROT, CARDIO GMA, C4 #### [facility] ,Prothrombin time (PT)Ordered By: Sailaja Anderson on 87-28-8268AX Coag (PPP) [Time]Prothrombin time (PT)9.0-12.9[facility] OhioComment on above:A hematocrit value greater than 55% may lead to inaccurate results in coagulation testing. Patientshaving hematocrit values >55% require a special collection tube for coagulation studies. Please contact the laboratory at [phone] for redraw instructions.RBC Auto (Bld) [#/Vol]Ordered By: Sailaja Anderson on 30-68-7730GVB (Bld) [#/Vol]Erythrocytes [#/volume] in Blood by Automated count3.60-5.00[facility] Cross Hospitalerum or plasma albumin/globulin mass ratioOrdered By: Sailaja Anderson on 09-15-2024 Albumin/Globulin [Mass ratio]Serum or plasma albumin/globulin mass ratio [facility] Hospitalerum or plasma anion gap determinationOrdered By: Sailaja Anderson on 58-35-3686Ltzij gap [Moles/Vol]Serum or plasma anion gap determination6.0-15.0[facility] Cross Hospitalodium [Moles/volume] in Serum or PlasmaOrdered By: Sailaja Anderosn on 36-87-7384Grysva [Moles/Vol]Sodium [Moles/volume] in Serum or Xkruaq492-091BicwqbipsSelect Medical Specialty Hospital [facility] [place] Specific gravity Test strip (U) [Rel density]Ordered By: Sailaja Anderson on 94-93-9441Vmnqlijc gravity (U) [Rel density]Specific gravity of Urine by Test strip1.001-1.030[facility] OhioThyroid Stimulating Hormoneon 69-19-0441NSQ Qn0.73 m[IU]/LNormal0.45-5.33The [facility] Physician GroupComment on above:Result Comment: PERFORMED BY: [facility] [address] [place] [address] PATHOLOGIST EDGING SUPERVISOR CARLOS KNAPP M.D.Performed By: #### ANTIR, ADNA, SJOGRENS, HELM, C3, HISAB, CCP, CHROMATIN, CENTROME, RA, CH50, CYNDI, BTN48BA, JO1, B2 GLYPROT, CARDIO GMA, C4 #### [facility] ,Thyrotropin [Units/volume] in Serum or PlasmaOrdered By: Sailaja Anderson on 81-44-5394QSC QnThyrotropin [Units/volume] in Serum or Plasma0.45-5.33[facility] OhioThyroxine (T4) free [Mass/volume] in Serum or Plasma Ordered By: Sailaja Anderson on 23-68-8787Fpci T4 [Mass/Vol]Thyroxine (T4) free [Mass/volume] in Serum or Plasma0.61-1.12[facility] Troponin I High Sensitivityon 26-65-9888Qphnxade I High Sensitivity2.3 pg/mL Normal0.0-15.0[facility] Physician GroupComment on above:Result Comment: PERFORMED BY: [facility] [address] [place] [address] PATHOLOGIST EDGING SUPERVISOR CARLOS KNAPP M.D.Performed By: #### ANTIR, ADNA, SJOGRENS, HELM, C3, HISAB, CCP, CHROMATIN, CENTROME, RA, CH50, CYNDI, WYC07IL, JO1, B2 GLYPROT, CARDIO GMA, C4 #### [facility] ,Troponin I.cardiac [Mass/volume] in Serum or Plasma by Detection limit <= 0.01 ng/Ordered By: Sailaja Anderson on 68-04-5407Oijkhxze I.cardiac DL <= 0.01 ng/mL [Mass/Vol]Troponin I.cardiac [Mass/volume] in Serum or Plasma by Detection limit <= 0.01 ng/0.0-15.0[facility] OhioUrea nitrogen [Mass/volume] in Serum or PlasmaOrdered By: Sailaja Anderson on 92-73-3334Uidh nitrogen [Mass/Vol]Urea nitrogen [Mass/volume] in Serum or PlasmaLow7-25[facility] Southeast OhioUrobilinogen Test strip (U) [Mass/Vol]Ordered By: Sailaja Anderson on 06-19-4198Jljctpdzqyza (U) [Mass/Vol]Urobilinogen [Mass/volume] in Urine by Test stripHighNormalSelect Medical [facility] [place] WBC Auto (Bld) [#/Vol]Ordered By: Sailaja Anderson on 49-32-4165ZRT (Bld) [#/Vol] Leukocytes [#/volume] in Blood by Automated count3.8-11.6FLima Memorial HospitalX-ray reportOrdered By: Wiley Shetty on 67-26-2298Tqdpc report [facility] Main [address] [address] XRay Report Signed Patient: Shazia Chou MR#: [id number] : 1990 Acct:[id number] Age/Sex: 33 / F ADM Date: Loc: ER Room: Type: [facility] ER Attending Dr: Copies to: [...] Wiley Shetty M.D.09/15/2024 3:56 PM Dictation Location: [place] [address] Transcribed By: [facility] 09/15/24 1556 Dictated By: Wiley Shetty II, MD 09/15/24 155 Signed By: 09/15/24 1556 [facility] Work Phone: XR chest 2V*on 31-20-1433RV chest 2V*[facility] Main [address] [address] XRay Report Signed Patient: Shazia Chou MR#: [id number] : 1990 Acct:[id number] Age/Sex: 33 / F ADM Date: 09/15/24 Loc: ER Room: Type: [facility] ER Attending Dr: Copies to: [...] Wiley Shetty M.D.09/15/2024 3:56 PM Dictation Location: [facility]--17 Transcribed By: MARKY 09/15/241555 Dictated By: Wiley Shetty II, MD 09/15/241555 Signed By: 09/15/24 155[facility] Physician GroupaPTT in Platelet poor plasma by Coagulation assayOrdered By: Sailaja Anderson on 21-97-5594wWDS Coag (PPP) [Time] Activated partial thromboplastin time (aPTT) in platelet poor plasma by coagulation a25.1-36.5FLima Memorial HospitalComment on above:A hematocrit value greater than 55% may lead to inaccurate results in coagulation testing. Patientshaving hematocrit values >55% require a special collection tube for coagulation studies. Please contact the laboratory at [phone] for redraw instructions.pH Test strip (U)Ordered By: Sailaja Anderson on 26-78-8118vR (U)pH of Urine by Test strip5.0-9.0[facility] TRANSTHORACIC ECHO (TTE) COMPLETEon 66-39-3761GOOZVXAVOCBFK ECHO (TTE) COMPLETE [address], Suite [facility], [place] [address] TRANSTHORACIC ECHOCARDIOGRAM REPORT Patient Name: SHAZIA ANTONYJOEL Reading Physician: [id number] Adithya Boswell MD, [facility] Study Date: 09/13/2024 Ordering Provider: [id number] ALEAH HOWARD MRN/PID: [id number] Fellow: Nurse: Date of /Age: 4 1990 / 33 years Certified Nursing Attendant: Julissa Licona RDCS, RVT Gender Assigned at F Additional Staff: : Height: 170.18 cm Admit Date: Weight: 85.28 kg Admission Status: BSA / BMI: 1.97 m2 / 29.45 Department Location: [facility] kg/m2 Heart [place] Blood Pressure: 118 /76 mmHg Study Type: TRANSTHORACIC ECHO (TTE) COMPLETE Diagnosis/ICD: Angina pectoris, unspecified-I20.9; Shortness of breath-R06.02; Palpitations-R00.2; Family history of ischemic heart disease and other diseases of the circulatory system-Z82.49; Essential (primary) hypertension-I10 Indication: Tobacco Abuse, Anxiety/Depression, Pseudotumor Cerebri, ETOH Abuse, Bipolar Disorder, History of Gastric Bypass CPT Codes: Echo Complete w Full Doppler-06713 Study Detail: The following Echo studies were [...] 0.7 m/s (0.6-0.9m/s) PV Max P.1 mmHg [id number] [facility]well MD, [facility] Electronically signed on 09/13/2024 at 4:00:19 PM Final [facility] HospitalUS Heart TransthoracicOrdered By: Adithya Boswell on 12-78-4168Ogcicx Valve Area by Continuity of Peak Velocity2.48 dy3GwomipfcmsCrystal Clinic Orthopedic Center Work Phone: [phone] Valve Area by Continuity of VTI2.66 cm2 [facility] Work Phone: [phone] mn szel1awNrTwjdzsvdtvNorwalk Memorial Hospital Work Phone: [phone] pk diyf2gyLcQtbeddjkacAkron Children's Hospital Work Phone: [phone] pk vel1.43 m/[facility] Work Phone: [phone] A4C EF67.8UnAkron Children's Hospital Work Phone: [phone] Biplane EF68 %[facility] Work Phone: LV EF68 %[facility] Work Phone: [phone] [facility] Work Phone: [phone] diam2.2 [facility] Work Phone: MV avg E/e' ratio6.6[facility] Work Phone: MV E/A ratio1.52[facility] Work Phone: [phone]Crystal Clinic Orthopedic Center Work Phone: UnAkron Children's Hospital Work Phone: US Heart Transthoracicon 09-13-2024 [facility] Heart [place] [address] [facility] [place], [address], [place] [address] TRANSTHORACIC ECHOCARDIOGRAM REPORT Patient Name: SHAZIA CHOU Reading Physician: [id number] Adithya Boswell MD, [facility] Study Date: 09/13/2024 Ordering Provider: [id number] ALEAH HOWARD MRN/PID: [id number] Fellow: Nurse: Date of /Age: 4 1990 / 33 years Certified Nursing Attendant: Julissa Licona RDCS, T Gender Assigned at F Additional Staff: : Height: 170.18 cm Admit Date: Weight: 85.28 kg Admission Status: BSA / BMI: 1.97 m2 / 29.45 Department Location: [facility] kg/m2 Heart [place] Blood Pressure: 118 /76 mmHg Study Type: TRANSTHORACIC ECHO (TTE) COMPLETE Diagnosis/ICD: Angina pectoris, unspecified-I20.9; Shortness of breath-R06.02; Palpitations-R00.2; Family history of ischemic heart disease and other diseases of the circulatory system-Z82.49; Essential (primary) hypertension-I10 Indication: Tobacco Abuse, Anxiety/Depression, Pseudotumor Cerebri, ETOH Abuse, Bipolar Disorder, History of Gastric Bypass CPT Codes: Echo Complete w Full Doppler-92713 Study Detail: The following Echo studies were [...] content not included)...Adithya Sun MD - 09/13/[address], [address] [address] TRANSTHORACIC ECHOCARDIOGRAM REPORT Patient Name: SHAZIA CHOU Reading Physician: [id number] Adithya Boswell MD, [facility] Study Date: 09/13/2024 Ordering Provider: [id number] ALEAH HOWARD MRN/PID: [id number] Fellow: Nurse: Date of /Age: 4 1990 / 33 years Certified Nursing Attendant: Julissa Licona RD, T Gender Assigned at F Additional Staff: : Height: 170.18 cm Admit Date: Weight: 85.28 kg Admission Status: BSA / BMI: 1.97 m2 / 29.45 Department Location: [facility] kg/m2 [facility] Blood Pressure: 118 /76 mmHg Study Type: TRANSTHORACIC ECHO (TTE) COMPLETE Diagnosis/ICD: Angina pectoris, unspecified-I20.9; Shortness of breath-R06.02; Palpitations-R00.2; Family history of ischemic heart disease and other diseases of the circulatory system-Z82.49; Essential (primary) hypertension-I10 Indication: Tobacco Abuse, Anxiety/Depression, Pseudotumor Cerebri, ETOH Abuse, Bipolar Disorder, History of Gastric Bypass CPT Codes: Echo Complete w Full Doppler-02296 Study Detail: The following Echo studies were [...] 0.7 m/s (0.6-0.9m/s) PV Max P.1 mmHg [id number] Adithya Boswell MD, FACC Electronically signed on 09/13/2024 at 4:00:19 PM Final [facility] Work Phone: EBV Early Abon 98-78-9779YEH early diffuse IgG Qn (S) <9.0Invalid Interpretation Code0.0-8.9[facility] CenterComment on above:Result Comment: Negative < 9.0 Equivocal 9.0 - 10.9 Positive >10.9 Performed at: [facility] [address] [id number] PhD Cordelia MaderaPerformed By: #### [id number] #### [facility] [address] [place], [place] [address]GVJMUGQDAKtplmee By: SYSTEM SYSTEM on 60-33-0332Ktnvvnwr [Mass/Vol]10 ng/mLLow11 - 307 ng/mLRemisol ChemIron [Mass/Vol]55 ug/pTIteuip11 - 153 mcg/dLRemisol ChemIron binding capacity [Mass/Vol]414 ug/qXOwoq388 - 400 mcg/dLRemisol ChemIron saturation [Mass fraction]13 %Low20 - 50 %Remisol Chem Transferrin [Mass/Vol]296 mg/vMNuinxk692 - 370 mg/dLRemisol ChemReference Laboratory TestingOrdered By: Rayne Pinto on 89-25-6890Gxsg [id number] 1 Invalid Interpretation CodeINTEGRIS COMMUNITY HOSP[facility] – [place] SendOutsSSTest Nzwuo9QOpmoien Interpretation CodeINTEGRIS COMMUNITY HOSPITAL [facility] [place] SendOutsSSECG [address] 15-13-8296IvvlzoqttrCrystal Clinic Orthopedic Center Work Phone: [phone]([place])D3 [facility] 47-00-251645327899-xktvotrcqiespo D3 [Mass/Vol]41.9 ng/nLOooxzw40.0-80.0Kindred HealthcareComment on above: Order Comment: Specimen Type: BLOOD SPECIMENOrdering Facility: [facility] Address:[address] [place] [address]Ihjgab Comment: Classification of 25 [place] Vitamin D status: Deficiency/Insufficiency: < or = 30 ng/ml. Sufficiency/Optimal Levels: 31-80 ng/mL Toxicity: > 100 ng/mL. Test performed by chemiluminescent immunoassay.Performed By: #### 1991-3 ####[facility] LABCLIA [id number] ED [facility] [id number] Auto Differential panel (Bld)on 13-05-5246Rlkgvzfrt (Bld) [#/Vol]0.05 10*3/uLNormal<0.11CHocking Valley Community Hospital on above:Order Comment: Specimen Type: BLOOD SPECIMEN Ordering Facility: [facility] Address: [address] [place], [place] [address]Performed By: #### [id number] #### [facility] CLIA [id number] [address] [place] [address]Cbkxachcp/100 WBC (Bld)0.4 %NormalKindred Healthcare Comment on above:Order Comment: Specimen Type: BLOOD SPECIMEN Ordering Facility: [facility] Address: [address] [place], [place] [address]Performed By: #### 20526-8 #### [facility] CLIA [id number] [address] [place] [address]Eyzvzjbnscqp cell count method Nom (Bld)AutoNormalClevelAtrium Health AnsonCompine rest [facility] services on above:Order Comment: Specimen Type: BLOOD SPECIMEN Ordering Facility: [facility] Address: [address] [place], [place] [address]Performed By: #### 34388-0 #### [facility] CLIA [id number] [address] [place] [address]Ftvlzwgijmt (Bld) [#/Vol]0.29 10*3/uLNormal<0.46[facility] on above:Order Comment: Specimen Type: BLOOD SPECIMEN Ordering Facility: [facility] Address: [address] [place], [place] [address]Performed By: #### 41698-9 #### [facility] CLIA [id number] [address] [place] [address]Vgzqdbbvchp/100 WBC (Bld)2.3 %NormalKindred Healthcare Comment on above:Order Comment: Specimen Type: BLOOD SPECIMEN Ordering Facility: [facility] Address: [address] [place], [place] [address]Performed By: #### 66019-5 #### [facility] CLIA [id number] [address] [place], [place] [address]Sdpeomuyfkk distribution width (RBC) [Ratio]16.4 %High 11.5-15.0[facility] on above:Order Comment: Specimen Type: BLOOD SPECIMEN [facility] Facility: [facility] Address: [address] [place], [place] [address]Performed By: #### 25232-2 #### [facility] CLIA [id number] [address] [place] [address]Elyxsmssui (Bld) [Volume fraction]38.2 %Pqhgzw13.0-46.0 [facility] on above:Order Comment: Specimen Type: BLOOD SPECIMEN [facility] Facility: [facility] Address: [address] [place], [place] [address]Performed By: #### 26731-2 #### [facility] CLIA [id number] [address] [place] [address]Sqmtfiejxo (Bld) [Mass/Vol]13.0 g/yZXhzasl10.5-15.5CHocking Valley Community [facility] on above:Order Comment: Specimen Type: BLOOD SPECIMEN Ordering Facility: [facility] Address: [address] [place], [place] [address]Performed By: #### 81908-2 #### [facility] CLIA [id number] [address] [place] [address] 06507Fffojyep granulocytes (Bld) [#/Vol]0.04 10*3/uLNormal<0.10 [facility] on above:Order Comment: Specimen Type: BLOOD SPECIMEN Ordering Facility: [facility] Address: [address] [place], [place] [address]Performed By: #### 94144-3 #### [facility] CLIA [id number] [address] [place] [address] 53251Qzjxihdb granulocytes/100 WBC (Bld)0.3 %NormalSt. Elizabeth Hospital on above:Order Comment: Specimen Type: BLOOD SPECIMEN Ordering Facility: [facility] Address: [address] [place], [place] [address]Performed By: #### 03360-8 #### [facility] CLIA [id number] [address] [place] [address] 95930Qbvjsbpscex (Bld) [#/Vol]1.78 10*3/uLNormal1.00-4.00[facility] on above:Order Comment: Specimen Type: BLOOD SPECIMEN Ordering Facility: [facility] Address: [address] [place], [place] [address]Performed By: #### 14993-2 #### [facility] CLIA [id number] [address] [place] [address] 29021Bxewpdngila/100 WBC (Bld)14.4 %NormalSt. Elizabeth Hospital on above:Order Comment: Specimen Type: BLOOD SPECIMEN Ordering Facility: [facility] Address: [address] [place], [place] [address]Performed By: #### 00088-8 #### [facility] CLIA [id number] [address] [place] [address] 31794WIC (RBC) [Entitic mass]31.4 hnPdomsy55.0-34.0[facility] on above:Order Comment: Specimen Type: BLOOD SPECIMEN Ordering Facility: [facility] Address: [address] [place], [place] [address]Performed By: #### 43596-1 #### [facility] CLIA [id number] [address] [place] [address] 86415JZYK (RBC) [Mass/Vol]34.0 g/xEKndmha04.5-36.0[facility] on above:Order Comment: Specimen Type: BLOOD SPECIMEN Ordering Facility: [facility] Address: [address] [place], [place] [address]Performed By: #### 66131-8 #### [facility] CLIA [id number] [address] [place], [place] [address]SVK (RBC) [Entitic vol]92.3 jBQienqb12.0-100.0[facility] on above:Order Comment: Specimen Type: BLOOD SPECIMEN Ordering Facility: [facility] Address: [address] [place], [place] [address]Performed By: #### 52900-3 #### [facility] CLIA [id number] [address] [place] [address] 58625Psgzpdxhp (Bld) [#/Vol]0.62 10*3/uLNormal<0.87[facility] on above:Order Comment: Specimen Type: BLOOD SPECIMEN Ordering Facility: [facility] Address: [address] [place], [place] [address]Performed By: #### 99645-8 #### [facility] CLIA [id number] [address] [place] [address] 60567Czrrzrmpk/100 WBC (Bld)5.0 %NormalKindred Healthcare Comment on above:Order Comment: Specimen Type: BLOOD SPECIMEN Ordering Facility: [facility] Address: [address] [place], [place] [address]Performed By: #### 75611-7 #### [facility] CLIA [id number] [address] [place] [address] 89490Ovadknbrxhk (Bld) [#/Vol]9.58 10*3/uLHigh1.45-7.50[facility] on above:Order Comment: Specimen Type: BLOOD SPECIMEN Ordering Facility: [facility] Address: [address] [place], [place] [address]Performed By: #### 64604-4 #### [facility] CLIA [id number] [address] [place] [address] 91858Dmvxmedhvaj/100 WBC (Bld)77.6 %NormalSt. Elizabeth Hospital on above:Order Comment: Specimen Type: BLOOD SPECIMEN Ordering Facility: [facility] Address: [address] [place], [place] [address]Performed By: #### 74025-4 #### [facility] CLIA [id number] [address] [place], [place] [address]Apcpnqxog RBC (Bld) [#/Vol]10*3/uLNormal<0.01[facility] on above:Order Comment: Specimen Type: BLOOD SPECIMEN Ordering Facility: [facility] Address: [address] [place], [place] [address]Performed By: #### 91516-8 #### [facility] CLIA [id number] [address] [place], [place] [address]Wpvlgfpid RBC/100 WBC (Bld) [Ratio]0.0 /100 WBCNormalCHocking Valley Community Hospital on above:Order Comment: Specimen Type: BLOOD SPECIMEN Ordering Facility: [facility] Address: [address] [place], [place] [address]Performed By: #### 71590-6 #### [facility] CLIA [id number] [address] [place], [place] [address]Criqphue mean volume (Bld) [Entitic vol]10.8 fLNormal9.0-12.7 [facility] on above:Order Comment: Specimen Type: BLOOD SPECIMEN Ordering Facility: [facility] Address: [address] [place], [place] [address]Performed By: #### 09180-3 #### [facility] CLIA [id number] [address] [place], [place] [address]Gwtydagza (Bld) [#/Vol]302 10*3/kNTkmycg671-250NgvmsccliSt. Elizabeth Hospital on above:Order Comment: Specimen Type: BLOOD SPECIMEN Ordering Facility: [facility] Address: [address] [place], [place] [address]Performed By: #### 57621-2 #### [facility] CLIA [id number] [address] [place], [place] [address]IUF (Bld) [#/Vol]4.14 10*6/uLNormal3.90-5.20[facility] on above:Order Comment: Specimen Type: BLOOD SPECIMEN Ordering Facility: [facility] Address: [address] [place], [place] [address]Performed By: #### 21248-7 #### [facility] CLIA [id number] [address] [place] [address] 6[address]YAT (Bld) [#/Vol]12.36 10*3/uLHigh3.70-11.00[facility] on above:Order Comment: Specimen Type: BLOOD SPECIMEN Ordering Facility: [facility] Address: [address] [place], [place] [address]Performed By: #### 25918-6 #### [facility] CLIA [id number] [address] [place] [address] 764[address]Ybsrfmpojeoyl metabolic 2000 panelon 44-75-5272Owtkzti [Mass/Vol]4.7 g/dLNormal3.9-4.9CH[facility] on above:Order Comment: Specimen Type: BLOOD SPECIMEN Ordering Facility: [facility] Address: [address] [place], [place] [address]Performed By: #### 98616-1 #### [facility] CLIA [id number] [address] [place] [address] [place] AMERICAALP [Catalytic activity/Vol] 64 U/POmkqck87-144PvfublzhfSt. [facility] on above:Order Comment: Specimen Type: BLOOD SPECIMEN Ordering Facility: [facility] Address: [address] [place], [place] [address]Performed By: #### 13000-0 #### [facility] CLIA [id number] [address] [place] [address] [place] AMERICAALT [Catalytic activity/Vol] 13 U/LNormal7-38[facility] on above:Order Comment: Specimen Type: BLOOD SPECIMEN Ordering Facility: [facility] Address: [address] [place], [place] [address]Performed By: #### 46241-0 #### [facility] CLIA [id number] [address] [place] [address] [place] AMERICAAnion gap [Moles/Vol]11 mmol/LNormal8-15[facility] on above:Order Comment: Specimen Type: BLOOD SPECIMEN Ordering Facility: [facility] Address: [address] [place], [place] [address]Performed By: #### 67806-7 #### [facility] CLIA [id number] [address] [place] [address] [place] AMERICAAST [Catalytic activity/Vol] 20 U/TNgvqvv05-78ArgskdwdzSt. [facility] on above:Order Comment: Specimen Type: BLOOD SPECIMEN Ordering Facility: [facility] Address: [address] [place], [place] [address]Performed By: #### 90465-0 #### [facility] CLIA [id number] [address] [place] [address] [place] AMERICABilirubin [Mass/Vol]0.2 mg/dLNormal0.2-1.3CH[facility] on above:Order Comment: Specimen Type: BLOOD SPECIMEN Ordering Facility: [facility] Address: [address] [place], [place] [address]Performed By: #### 32150-2 #### [facility] CLIA [id number] [address] [place], [place] [address] [place] AMERICACalcium [Mass/Vol]9.6 mg/dL Normal8.5-10.2CH[facility] on above:Order Comment: Specimen Type: BLOOD SPECIMEN Ordering Facility: [facility] Address: [address] [place], [place] [address]Performed By: #### 80465-4 #### [facility] CLIA [id number] [address] [place] [address] [place] AMERICAChloride [Moles/Vol]106 mmol/SGvwuoo56-272WbdbiddyjSt. [facility] on above:Order Comment: Specimen Type: BLOOD SPECIMEN Ordering Facility: [facility] Address: [address] [place], [place] [address]Performed By: #### 48748-4 #### [facility] CLIA [id number] [address] [place] [address] [place] AMERICACO2 [Moles/Vol]22 mmol/L Qhhbdd41-28SovbsefldSt. [facility] Hospital on above:Order Comment: Specimen Type: BLOOD SPECIMEN Ordering Facility: [facility] Address: [address] [place], [place] [address]Performed By: #### 97562-8 #### [facility] CLIA [id number] [address] [place] [address] [place] AMERICACreatinine [Mass/Vol]0.69 mg/dLNormal0.58-0.96[facility] on above:Order Comment: Specimen Type: BLOOD SPECIMEN Ordering Facility: [facility] Address: [address] [place], [place] [address]Performed By: #### 79694-8 #### [facility] CLIA [id number] [address] [place] [address] [place] AMERICACreatinine and Glomerular filtration rate.predicted panel (S/P/Bld)116 mL/min/1.73m???Normal>=60[facility] on above:Order Comment: Specimen Type: BLOOD SPECIMEN Ordering Facility: [facility] Address: [address] [place], [place] [address]Result Comment: Estimated Glomerular Filtration Rate (eGFR) is [...] not accurately reflect actual GFR.Performed By: #### 85453-7 #### [facility] IA [id number] [address] [place] [address] [place] AMERICAGlucose [Mass/Vol]91 mg/dL Zcjusc49-25HtzxpgnbwSt. [facility] Hospital on above:Order Comment: Specimen Type: BLOOD SPECIMEN Ordering Facility: [facility] Address: [address] [place], [place] [address]Result Comment: The [place] [employer] Association (ADA) provides guidance for cutoff [...] Standards of Medical Care in Diabetes 2016, [place] [employer]. Diabetes Care. 2016.39(Suppl 1).Performed By: #### 43533-8 #### [facility] IA [id number] [address] [place] [address] [place] AMERICAPotassium [Moles/Vol]4.3 mmol/LNormal3.7-5.1CH[facility] on above:Order Comment: Specimen Type: BLOOD SPECIMEN Ordering Facility: [facility] Address: [address] [place], [place] [address]Performed By: #### 46252-2 #### [facility] IA [id number] [address] [place] [address] [place] AMERICAProtein [Mass/Vol]7.3 g/dL Normal6.3-8.0[facility] on above:Order Comment: Specimen Type: BLOOD SPECIMEN Ordering Facility: [facility] Address: [address] [place], [place] [address]Performed By: #### 91552-7 #### [facility] CLIA [id number] [address] [place] [address] [place] AMERICASodium [Moles/Vol]139 mmol/L Kxbztm777-960HoetuolotSt. Elizabeth Hospital on above:Order Comment: Specimen Type: BLOOD SPECIMEN Ordering Facility: [facility] Address: [address] [place], [place] [address]Performed By: #### 10548-3 #### [facility] CLIA [id number] [address] [place] [address] [place] AMERICAUrea nitrogen [Mass/Vol]9 mg/dLNormal7-21[facility] on above:Order Comment: Specimen Type: BLOOD SPECIMEN Ordering Facility: [facility] Address: [address] [place], [place] [address]Performed By: #### 94970-7 #### [facility] CLIA [id number] [address] [place] [address] [place] AMERICAFerritin SerPl-mCncon 93-15-7899Blskktwt [Mass/Vol]17.5 ng/bZBsgqvp84.7-205.1CH[facility] on above:Order Comment: Specimen Type: BLOOD SPECIMENOrdering Facility: [facility] Address:[address] [place], [place] [address]Performed By: #### 2731-8, 80972-5, 6-4 ####[facility] LABCLIA [id number] [place] [address] [place] OF AMERICAIron and Iron binding capacity panelon 06-49-2250Azpz [Mass/Vol]114 ug/tENzhkyc53-596AvnlbycbqSt. [facility] on above:Order Comment: Specimen Type: BLOOD SPECIMENOrdering Facility: [facility] Address:[address] [place], [place] [address]Performed By: #### 2731-8, 60413-3, 2275-4 ####[facility]IA [id number] [place] [address] [place] AMERICAIron binding capacity [Mass/Vol] 360 ug/cAFayqes262-223TwoavymcdSt. [facility] on above:Order Comment: Specimen Type: BLOOD SPECIMENOrdering Facility: [facility] Address:[address] [place], [place] [address]Performed By: #### 2731-8, 30492-4, 2275-4 ####[facility] [id number] [place] [address] [place] AMERICAIron/TIBC [Molar ratio]31.7 % Eyztvl27.0-57.0[facility] on above:Order Comment: Specimen Type: BLOOD SPECIMENOrdering Facility: [facility] Address:[address] [place], [place] [address]Performed By: #### 2731-8, 44457-2, 4 ####[facility]IA [id number] [place] [address] [place] AMERICAPTH-Intact SerPl-mCncon 75-97-1203Ypewcqqreg.intact [Mass/Vol]17 pg/sRMumuqr73-18GubkymhhrSt. Elizabeth Hospital on above:Order Comment: Specimen Type: BLOOD SPECIMENOrdering Facility: [facility] Address:[address] [place], [place] [address]Performed By: #### 2731-8, 14959-7, 2275-4 ####[facility]IA [id number] [place] [id number] [place] OF AMERICACNOVon 75-16-9932KIQPZwssuy Visit ([facility] [place] SHAZIA CHOU ([id number]) 1990 F Date Time Provider Department 07/25/24 3:00 PM TEVIN CARSON [facility] During your visit today, we recorded the following information about you: Pulse Blood pressure Weight 67/minute 122/72 83.8 kg Tevin Carson DO 07/25/2024 4:[address] [facility] Visit Assessment and Plan 1. Bipolar affective [...] appointment. She is scheduled to see a laser engraver at for this. ROS: As per HPI. [...] Assessed Reason for Visi (more content not included)...[facility] 45-22-6047WQTDIvvbhiwyv (RADMN) SHAZIA CHOU ([id number]) 1990 F Date Time Provider Department 07/13/24 [facility] During your visit today, we recorded [...] mg by mouth daily at bedtime. - hbhqjepwtjum-mbe-sivo-FA-vit K (BARIATRIC MULTIVITAMINS) 45 mg iron- 800 [...] 03/08/2024 Encounter Status:Closed by [facility] on [facility]24[facility] Breast - left diagnostic for implanton 00-15-8822KLRDRFUHPF: ULTRASOUND GUIDED BIOPSY Site 1: Successful ultrasound guided biopsy of the area at 1 o'clock, 15 cm from the nipple in the left breast with placement of a clip was successful. Waiting for pathology results. A final report will be issued when these become available. Interpreting Radiologist: Alexandra Son M.D. Electronically signed on: 07/11/2024 Shellfish Grower: SERGIO La Date/Time: Jul 11 2024 8:53A Dictated by: ALEXANDRA SON MD This examination was interpreted and the report reviewed and electronically signed by: ALEXANDRA SON MD on Jul 11 2024 9:45AM [facility] DIVISION OF RADIOLOGY* * *Final Report* * * DATE OF EXAM: Jul 11 2024 9:17AM [facility] 0628 - LINDA DIAG W AV / PROCEDURE REASON: Abnormal mammogram of left breast * * * * Physician Interpretation * * * * RESULT: [facility] [address] [place] [address] HISTORY: 33 year old patient presents for [...] may obscure small masses. DIVISION OF RADIOLOGYProvider, [facility] - 07/11/2024 * * *Final Report* * * DATE OF EXAM: Jul 11 2024 9:17AM [facility] 0628 - LINDA DIAG Moshe LEY LT / PROCEDURE REASON: Abnormal mammogram of left breast * * * * Physician Interpretation * * * * RESULT: [facility] [address] [place] [id number] HISTORY: 33 year old patient presents for [...] Alexandra Son M.D. Electronically signed on: 07/11/2024 Shellfish Grower: SERGIO Transcribe Date/Time: Jul 11 2024 8:53A Dictated by: ALEXANDRA SON MD This examination was interpreted and the report reviewed and electronically signed by: ALEXANDRA SON MD on Jul 11 2024 9:45AM [facility] SouthRad[facility] Study observation (narrative)[facility] MELVIN W AV LTon 46-19-8454EGY MELVIN CASTROO LT* * *Final Report* * * * * * SEE BOTTOM OF REPORT FOR ADDENDED TEXT * * * DATE OF EXAM: Jul 11 2024 9:17AM [facility] 0628 - LINDA DIAG W AV LT / PROCEDURE REASON: Abnormal mammogram of left breast * * * * Physician Interpretation * * * * RESULT: [facility] [address] [place] [address] - - - - - - - [...] Alexandra Son M.D. Electronically signed on: 07/11/2024 Shellfish Grower: SERGIO La Date/Time: Jul 11 2024 8:53A Dictated by: ALEXANDRA SON MD This examination was interpreted and the report reviewed and electronically signed by: ALEXANDRA SON MD on Jul 11 2024 9:45AM EST This document has been addended by: ALEXANDRA SON MD on Jul 13 2024 3:56PM EST [id number] Hospital [facility] US BIOPSY BREAST LTon 34-19-4372TDC US BIOPSY BREAST LT* * *Final Report* * * * * * SEE BOTTOM OF REPORT FOR ADDENDED TEXT * * * DATE OF EXAM: Jul 11 2024 9:15AM [facility] 0597 - LINDA US BIOPSY BREAST LT / PROCEDURE REASON: Abnormal mammogram of left breast * * * * Physician Interpretation * * * * RESULT: [facility] [address] [place] [address] - - - - - - - [...] Alexandra Son M.D. Electronically signed on: 07/11/2024 Shellfish Grower: SERGIO Transcribe Date/Time: Jul 11 2024 8:52A Dictated by: ALEXANDRA SON MD This examination was interpreted and the report reviewed and electronically signed by: ALEXANDRA SON MD on Jul 11 2024 9:45AM EST This document has been addended by: ALEXANDRA SON MD on Jul 13 2024 3:56PM EST [id number] Memorial Hospital Panel Information Ordered By: Ccf Provider on 14-00-3279Oigfwspzr ClinicSURGICAL PATHOLOGYon 08-49-6980PTLS REPORTNormalCCleveland Clinic Medina HospitalComment on above:Order Comment: Specimen Type: BLOOD SPECIMEN Ordering Facility: [facility] Address: [address] [place], [place] [address]Result Comment: Surgical Pathology Report Case: [id number] Authorizing Provider: Alexandra Son Collected: 07/11/2024 09:01 AM MD Nicole Ordering Location: Mammography Received: 07/11/2024 09:37 AM Pathologist: Mia Erwin MD Specimen: Breast, Left, Core Biopsy, Asymmetry 1:00 15 cm FN Ribbon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 (S/P/Bld) [Interp]NormalKindred Healthcare Comment on above:Order Comment: Specimen Type: BLOOD SPECIMEN [facility] Address: [address] [place], [place] [address]Result Comment: No evidence of HIV- 1 or [...] HIV test results or diagnoses.Performed By: #### 66286-6 #### [facility] IA [id number] [address] [place] [address] [place] EWIGGJDSyO8c (Bld)on 02-25-2024 Average glucose Estimated from glycated hemoglobin (Bld) [Mass/Vol]111 mg/dL NormalSt. Elizabeth Hospital on above:Order Comment: Specimen Type: BLOOD SPECIMEN [facility]: [facility] Address: [address] [place], [place] [address]Result Comment: eAG: (Estimated average glucose) is a calculated value from HgbA1c and is malt liquors sales representative of the average blood glucose level in the last 2-3 month period.Performed By: #### 08289-6 #### [facility] CLIA [id number] [address] [place] [address] [place] LLZSBBCEcY8c (Bld) [Mass fraction] 5.5 %Normal4.3-5.6CH[facility] on above:Order Comment: Specimen Type: BLOOD SPECIMEN [facility]: [facility] Address: [address] [place], [place] [address]Result Comment: [place] Diabetes Association guidelines indicate that patients with HgbA1c in the range 5.7-6.4% are at increased risk for development of diabetes, and intervention by lifestyle modification may be beneficial. HgbA1c greater or equal to 6.5% is considered diagnostic of diabetes.Performed By: #### 46192-9 #### [facility] CLIA [id number] [address] [place] [address] OF SUMMA HEALTHLipid 1996 panel 38-38-9134Vklwejyqpyh [Mass/Vol]142 mg/dLNormal<200[facility] Comment on above:Order Comment: Specimen Type: BLOOD SPECIMEN [facility] Address: [address] [place], [place] [address]Result Comment: <200 mg/dL, Desirable 200-239 mg/dL, Borderline high >239 mg/dL, HighPerformed By: #### 89263-3 #### [facility] CLIA [id number] [address] [place] [address] STATES OF AMERICACholesterol in HDL [Mass/Vol]72 mg/dLNormal>39[facility] on above:Order Comment: Specimen Type: BLOOD SPECIMEN [facility] Facility: [facility] [facility] Address: [address] [place], [place] [address]Result Comment: 40-59 mg/dL, Acceptable >59 mg/dL, High: Negative risk factor for coronary heart disease <40 mg/dL, Low: Positive risk factor for coronary heart diseasePerformed By: #### 73899-3 #### [facility] CLIA [id number] [address] [place] [address] [place] AMERICACholesterol in LDL [Mass/Vol]60 mg/dLNormal<100[facility] on above:Order Comment: Specimen Type: BLOOD SPECIMEN [facility]ing Facility: [facility] Address: [address] [place], [place] [address]Result Comment: <100 mg/dL, Optimal 100-129 mg/dL, Near optimal/above optimal 130-159 mg/dL, Borderline high 160-189 mg/dL, High >189 mg/dL, Very high Secondary prevention optimal LDL Cholesterol levels are recommended to be < 70 mg/dLPerformed By: #### 18525-5 #### [facility] CLIA [id number] [address] [place] [address] [place] AMERICACholesterol in LDL/Cholesterol in HDL [Mass ratio]0.83 {ratio}Normal<2.54[facility] on above:Order Comment: Specimen Type: BLOOD SPECIMEN [facility]ing Facility: [facility] Address: [address] [place], [place] [address]Result Comment: Reference: 1. National Cholesterol Education Program ATP III Guideline At-A-Glance Quick Desk Reference: National Heart, Lung, and Blood [place]. National Institutes of Health. 2001: NIH Publication No. 01-3305. 2. An International Atherosclerosis Society position paper: global recommendations for the management of dyslipidemia: executive summary, Atherosclerosis. 2014: 232(2):410-413.Performed By: #### 52482-3 #### [facility] CLIA [id number] [address] [place] [address] [place] AMERICACholesterol in VLDL [Mass/Vol]10 mg/dLNormal<30[facility] on above:Order Comment: Specimen Type: BLOOD SPECIMEN Ordering Facility: [facility] Address: [address] [place], [place] [address]Performed By: #### 19143-1 #### [facility] CLIA [id number] [address] [place] [address] [place] AMERICACholesterol non HDL [Mass/Vol]70 mg/dLNormal<130[facility] on above:Order Comment: Specimen Type: BLOOD SPECIMEN Ordering Facility: [facility] Address: [address] [place], [place] [address]Result Comment: <130 mg/dL, Optimal 130-159 mg/dL, Near optimal/above optimal 160-189 mg/dL, Borderline high 190-219 mg/dL, High >219 mg/dL, Very high Secondary prevention optimal non HDL Cholesterol levels are recommended to be <100 mg/dLPerformed By: #### 10978-9 #### [facility] CLIA [id number] [address] [place] [address] [place] Cholesterol.total/Cholesterol in HDL [Mass ratio]1.97 {ratio}Normal<5.10 [facility] on above:Order Comment: Specimen Type: BLOOD SPECIMEN [facility] Facility: [facility] Address: [address] [place], [place] [address]Performed By: #### 11955-3 #### [facility] CLIA [id number] [address] [place] [address] [place] OF AMERICAFASTING TIME12 [address] [facility] on above:Order Comment: Specimen Type: BLOOD SPECIMEN [facility]: [facility] Address: [address] [place], [place] [address]Performed By: #### 13878-7 #### [facility] CLIA [id number] [address] [place] [address] [place] AMERICATriglyceride [Mass/Vol]51 mg/dLNormal<150[facility] on above:Order Comment: Specimen Type: BLOOD SPECIMEN Ordering Facility: [facility] Address: [address] [place], [place] [address]Result Comment: <150 mg/dL, Normal 150-199 mg/dL, Borderline high 200-499 mg/dL, High >499 mg/dL, Very highPerformed By: #### 14691-2 #### [facility] CLIA [id number] [address] [facility] with Diffon 01-13-2024 Abs. Basophil0.08 k/uLNormal0.00-0.20[facility] HospitalComment on above:Performed By: #### VALERIO HAMILTON, FERI #### [facility] [address] [place] [address] Internet Consultant: Sharon Naylor.Imm.Granulocyte0.05 k/uLNormal0.00-0.30[facility] HospitalComment on above:Performed By: #### VALERIO HAMILTON, FERI #### [address] [address] Internet Consultant: Sharon Naylor.Neutrophil (Seg)7.68 k/uLNormal1.50-8.10 [facility] HospitalComment on above:Performed By: #### VALERIO HAMILTON, FERI #### [address] [address] Internet Consultant: Harpal Adair MDBasophils/100 WBC (Bld)1 %Normal0-2MercMarinHealth Medical CenterComment on above:Performed By: #### VALERIO HAMILTON, FERI #### [address] [address] Internet Consultant: Harpal Adair MDEosinophils (Bld) [#/Vol]0.25 10*3/uLNormal 0.00-0.44[facility] HospitalComment on above:Performed By: #### VALERIO HAMLITON, FERI #### [address] [address] Internet Consultant: PAIGE Naylorosinophils/100 WBC (Bld)2 %Normal1-4[facility] HospitalComment on above:Performed By: #### VALERIO HAMILTON, FERI #### [address] [address] Internet Consultant: Harpal Adair MDErythrocyte distribution width (RBC) [Ratio]18.6 %High11.8-14.4[facility] HospitalComment on above:Performed By: #### VALERIO HAMILTON, FERI #### [address] [address] Internet Consultant: Harpal Adair MDHematocrit (Bld) [Volume fraction]36.7 %Normal 36.3-47.1MRady Children's HospitalComment on above:Performed By: #### VALERIO HAMILTON, FERI #### [address] [address] Internet Consultant: Harpal Adair MDHemoglobin (Bld) [Mass/Vol]11.3 g/dLLow11.9-15.1 [facility] HospitalComment on above:Performed By: #### VALERIO HAMILTON, FERI #### [address] [address] Internet Consultant: Harpal Adair MDImmature granulocytes/100 WBC (Bld)0 %Normal0 [facility] HospitalComment on above:Performed By: #### VALERIO HAMILTON, FERI #### [address] [address] Internet Consultant: Harpal Adair MDLymphocytes (Bld) [#/Vol]2.30 10*3/uLNormal 1.10-3.70[facility] HospitalComment on above:Performed By: #### VALERIO HAMILTON, FERI #### [address] [address] Internet Consultant: Emily Naylormphocytes/100 WBC (Bld)21 %Jfs96-81FmottMorrow County HospitalComment on above:Performed By: #### VALERIO HAMILTON, FERI #### [facility] [address] [place] [address] Internet Consultant: JERRI NaylorCH (RBC) [Entitic mass]28.4 buEsfsot25.2-33.5 [facility] HospitalComment on above:Performed By: #### VALERIO HAMILTON, FERI #### [facility] [address] [place] [address] Internet Consultant: JERRI NaylorCHC (RBC) [Mass/Vol]30.8 g/bIMkrpss00.4-34.8 [facility] HospitalComment on above:Performed By: #### VALERIO HAMILTON, FERI #### [facility] [address] [place] [address] Internet Consultant: JERRI NaylorCV (RBC) [Entitic vol]92.2 gHChyike71.6-102.9 [facility] HospitalComment on above:Performed By: #### VALERIO HAMILTON, FERI #### [facility] [address] [place] [address] Internet Consultant: JERRI Nayloronocytes (Bld) [#/Vol]0.77 10*3/uLNormal 0.10-1.20[facility] HospitalComment on above:Performed By: #### VALERIO HAMILTON, FERI #### [facility] [address] [place] [address] Internet Consultant: JERRI Nayloronocytes/100 WBC (Bld)7 %Normal3-12[facility] HospitalComment on above:Performed By: #### VALERIO HAMILTON, FERI #### [facility] [address] [place] [address] Internet Consultant: Harpal Adair MDNeutrophil (Seg)69 %Iqoi60-11EixivMorrow County HospitalComment on above:Performed By: #### VALERIO HAMILTON, FERI #### [address] [address] Internet Consultant: YUMIKO Naylor Automated0.0 per 100 WBCNormal0.0[facility] County HospitalComment on above:Performed By: #### VALERIO HAMILTON, FERI #### [address] [address] Internet Consultant: Ania Naylortecynthia mean volume (Bld) [Entitic vol]11.4 fL Normal8.1-13.5[facility] HospitalComment on above:Performed By: #### VALERIO HAMILTON, FERI #### [address] [address] Internet Consultant: Ania Naylortelets (Bld) [#/Vol]387 10*3/aLOkerfs358-323 [facility] HospitalComment on above:Performed By: #### VALERIO HAMILTON, FERI #### [address] [address] Internet Consultant: PATRIC NaylorBC (Bld) [#/Vol]3.98 10*6/uLNormal3.95-5.11 [facility] HospitalComment on above:Performed By: #### VALERIO HAMILTON, FERI #### [address] [address] Internet Consultant: EDIN Naylor morphology finding Nom (Bld)ANISOCYTOSIS PRESENTNormalMorrow County HospitalComment on above:Performed By: #### VALERIO HAMILTON, FERI #### [address] [address] Internet Consultant: SHANNA NaylorBC (Bld) [#/Vol]11.1 10*3/uLNormal3.5-11.3[facility] Mer[facility] General HospitalComment on above:Performed By: #### VALERIO HAMILTON, FERI #### [facility] [address] [place] [address] Internet Consultant: Harpal Adair MDFerritinon 99-43-7486Ibuvribw [Mass/Vol]9 ng/mL Qyg59-059AnsbpMorrow County HospitalComment on above:Result Comment: FERRITIN Reference Ranges: Adult Males 20 - 60 years: 30 - 400 ng/mL Adult females 17 - 60 years: 13 - 150 ng/mL Adults greater than 60 years: no established reference range Pediatrics: no established reference rangePerformed By: #### VALERIO HAMILTON FERI #### [place] [address] Internet Consultant: Lani Naylor Binding Cap.on 01-13-2024% Fe Saturation9 % Pfx25-67ErlsmMorrow County HospitalComment on above:Performed By: #### VALERIO HAMILTON FERI #### [facility] [address] [place] [address] Internet Consultant: Shannan Naylorn [Mass/Vol]37 ug/hEWxzdni91-924TvurjMorrow County HospitalComment on above:Performed By: #### VALERIO HAMILTON FERI #### [facility] [address] [place] [address] Internet Consultant: Harpal Adair MDTotal Fe Binding Drl752 ug/oBUrykng784-373HeahwMorrow County HospitalComment on above:Performed By: #### VALERIO HAMILTON, FERI #### [facility] [address] [place] [address] Internet Consultant: Harpal Adair MDUnbound Fe Bind Sgw042 ug/dXHfjx265-368NmdkdMorrow County HospitalComment on above:Performed By: #### VALERIO HAMILTON, FERI #### [employer] [address] [place] [address] Internet Consultant: Zeina aNylor 88-41-4548ECVGQyovubtsl ([facility]) SHAZIA CHOU ([id number]) 1990 F Date Time Provider Department 01/05/24 ELIA BAIRES [facility] During your visit today, we recorded the [...] 60 mg by mouth once daily. - obokgozfdebc-rxr-uxrq-FA-vit K (BARIATRIC MULTIVITAMINS) 45 mg iron- 800 [...] days. Encounter Status:Closed by ELIA BAIRES on 01/05/24NormalCCleveland Clinic Medina HospitalTOXICOLOGY SCRN W/CONF,URINEon [id number] Confirm (U) [Mass/Vol]NegativeNegativeClepeoples hospital ClinicComment on above:Cutoff threshold at 1000 ng/mL.Barbiturates UrineNegativeNegativeClepeoples hospital ClinicComment on above: Cutoff threshold at 200 ng/mL.Benzodiazepines UrineNegativeNegativeCleveland ClinicComment on above:Cutoff threshold at 200 ng/mL.Cannabinoids Screen Ql (U) Sent for confirmationAbnormalNegativeCleveland ClinicComment on above:Cutoff threshold at 50 ng/mL.Cocaine Ql (U)NegativeNegativeCleveland ClinicComment on above:Cutoff threshold at 300 ng/mL.Ethanol (U) [Mass/Vol]mg/dLNINF - 11 mg/dL [facility] HospitalInterpretation and review of laboratory resultsAbnormalCleveland ClinicOpiates Screen Ql (U)NegativeNegativeClinton Memorial HospitalComment on above: Cutoff threshold at 300 ng/mL.oxyCODONE cutoff Screen (U) [Mass/Vol]Negative NegativeClinton Memorial HospitalComment on above:Cutoff threshold at 100 ng/mL. Phencyclidine Ql (U)NegativeNegativeMercy Health Willard Hospitalment on above:Cutoff threshold at 25 ng/mL.Immunoassay screen only. Cross reactivity with other substances can occur with immunoassay screening. Detection of any drug(s) in this urine toxicology panel is presumptive only. These tests are for medical purposes only and should not be used for compliance monitoring, legal, or forensic use.[facility] Methodist HospitalCANNABINOID CONF, URon 01-04-2024 Cannabinoids Confirm (U) [Mass/Vol]153 ng/mLHigh<16[facility] Comment on above:Order Comment: Specimen Type: URINE SPECIMENOrdering Facility: [facility] Address:[address] [place], [place] [address]Result Comment: Tetrahydrocannabinol carboxylic acid (THCA) is a metabolite of udfux-7-pakqrdcqjvbwnnsurywb which is the main active component of marijuana. Presence of THCA indicates use of marijuana.Performed By: #### KARLIEFU ####[facility] [id number] [address])NormalKindred HealthcareComment on above:Order Comment: Specimen Type: URINE SPECIMENOrdering Facility: [facility] Address:[address] [place] [address] Comment: This test is for medical use only. This test was developed and its performance characteristics determined by [facility]'s [facility] Pathology and Laboratory Medicine [place] (-PL[facility]). It has not been cleared or approved by the FDA. -[facility] is regulated under CLIA as qualified to perform high-complexity testing. Thistest is used for clinical purposes. It should not be regarded as investigational or for research.Performed By: #### MARCCONFU ####[facility] LABCLIA [id number] [address] [address] [facility] CNOVmaximiliano [id number] Visit ([facility]) SHAZIA CHOU ([id number]) 1990 F Date Time Provider Department 01/04/24 9:20 AM ELIA BAIRES [facility] During your visit today, we recorded the [...] She says that she is originally from [facility] however came up to here today [...] establish with a new psychiatrist at [facility] in [place]. She also sees a counselor weekly. Current [...] 4) Physical in 1 (more content not included)...NormalKindred Healthcare SPECIMEN VALIDITY, URINEon [id number],URINE<10Normal<50[facility] on above:Order Comment: Specimen Type: URINE SPECIMENOrdering Facility: [facility] Address:[address] [place], [place] [address]Performed By: #### [id number] ####[facility] LABCLIA [id number] [place] [address] [place] CREATININE,URINE33.7 mg/sAXaioxh74.0-300.0[facility] on above:Order Comment: Specimen Type: URINE SPECIMENOrdering Facility: [facility] Address:[address] [place], [place] [address]Performed By: #### [id number] ####[facility] LABCLIA [id number] [place] [address] [place] AMERICANITRITES,URINE<50 Normal<500[facility] on above:Order Comment: Specimen Type: URINE SPECIMENOrdering Facility: [facility] Address:[address] [place], [place] [address]Performed By: #### [id number] ####[facility]IA [id number] [place] [address] [place] AMERICAOXIDANTS,URINE70 mg/LNormal<200[facility] on above:Order Comment: Specimen Type: URINE SPECIMENOrdering Facility: [facility] Address:[address] [place], [place] [address]Performed By: #### [id number] ####[facility] [id number] [place] [address] [place] pH (U)5.6 [pH]Normal4.5-8.0[facility] on above:Order Comment: Specimen Type: URINE SPECIMENOrdering Facility: [facility] Address:[address] [place], [place] [address]Performed By: #### [id number] ####[facility] [id number] [place] [address] [place] AMERICASPEC GRAVITY,UR1.019 Normal1.003-1.035[facility] on above:Order Comment: Specimen Type: URINE SPECIMENOrdering Facility: [facility] Address:[address] [place], [place] [address]Performed By: #### [id number] ####[facility] [id number] [place] [address] [place] AMERICASPECIMEN VALIDITY QUALITYSpecimen quality results within acceptable limitsNormAdena Regional Medical Center on above:Order Comment: Specimen Type: URINE SPECIMENOrdering Facility: [facility] Address:[address] [place] [address] Performed By: #### [id number] ####[facility]IA [id number] [place] [address] [place] TOXICOLOGY SCRN W/CONF,URINEon 59-96-6587Jssgahvseuke Confirm (U) [Mass/Vol] NegativeNormalNegativeSt. [facility] on above:Order Comment: Specimen Type: URINE SPECIMENOrdering Facility: [facility] Address:[address] [place], [place] [address]Result Comment: Cutoff threshold at 1000 ng/mL.Performed By: #### [id number] ####[facility] LABCLIA [id number] [place] [address] [place] BARBITURATES, URINENegativeNormalNegativeSt. [facility] on above:Order Comment: Specimen Type: URINE SPECIMENOrdering Facility: [facility] Address:[address] [place] [address] Comment: Cutoff threshold at 200 ng/mL.Performed By: #### [id number] ####[facility] LABCLIA [id number] [place] [address] [place] AMERICABENZODIAZEPINES, URNegativeNormalNegativeSt. [facility] on above:Order Comment: Specimen Type: URINE SPECIMENOrdering Facility: [facility] Address:[address] [place], [place] [address]Result Comment: Cutoff threshold at 200 ng/mL.Performed By: #### UTOXRF ####[facility] LABCLIA [id number] [place] [address] [place] AMERICACannabinoids Screen Ql (U)Sent for confirmationAbnormalNegativeSt. [facility] on above:Order Comment: Specimen Type: URINE SPECIMENOrdering Facility: [facility] Address:[address] [place], [place] [address]Result Comment: Cutoff threshold at 50 ng/mL.Performed By: #### UTOXRF ####[facility] LABCLIA [id number] [place] [address] [place] AMERICACocaine Ql (U)NegativeNormalNegativeKindred Healthcare Comment on above:Order Comment: Specimen Type: URINE SPECIMENOrdering Facility: [facility] Address:[address] [place], [place] [address]Result Comment: Cutoff threshold at 300 ng/mL.Performed By: #### UTOXRF ####[facility]IA [id number] [place] [address] [place] AMERICAEthanol (U) [Mass/Vol]<11Normal<11CHocking Valley Community [facility] on above:Order Comment: Specimen Type: URINE SPECIMENOrdering Facility: [facility] Address:[address] [place], [place] [address]Performed By: #### UTOXRF ####[facility]IA [id number] [place] [address] [place] Opiates Screen Ql (U)NegativeNormalNegativeSt. [facility] on above:Order Comment: Specimen Type: URINE SPECIMENOrdering Facility: [facility] Address:[address] [place], [place] [address]Result Comment: Cutoff threshold at 300 ng/mL.Performed By: #### UTOXRF ####[facility]IA [id number] [address] STATES OF SUMMA HEALTHoxyCODONE cutoff Screen (U) [Mass/Vol]NegativeNormal NegativeSt. [facility] on above:Order Comment: Specimen Type: URINE SPECIMENOrdering Facility: [facility] Address:[address] [place], [place] [address]Result Comment: Cutoff threshold at 100 ng/mL. Performed By: #### UTOXRF ####[facility]IA [id number] [place] [address] [place] Phencyclidine Ql (U)NegativeNormalNegativeSt. [facility] on above:Order Comment: Specimen Type: URINE SPECIMENOrdering Facility: [facility] Address:[address] [place], [place] [address]Result Comment: Cutoff threshold at 25 ng/mL.Performed By: #### UTOXRF ####[facility] LABCLIA [id number] [place] [id number] [place] OF AMERICAED Noteon 36-36-2364WU Note [id number]#1.00MIDDLETOWN HOSPITALFNoHighland District HospitalActivated partial thromboplastin time (aPTT) in platelet poor plasma by coagulation aOrdered By: Marii Christiansen on 23-27-6918sCFC Coag (PPP) [Time]28.8 s25.1-36.5FLima Memorial HospitalComment on above:A hematocrit value greater than 55% may lead to inaccurate results in coagulation testing. Patients having hematocrit values >55% require a special collection tube for coagulation studies. Please contact the laboratory at [phone] for redraw instructions. Basophils Auto (Bld) [#/Vol]Ordered By: Marii Christiansen on 76-38-4467Xipflzeln (Bld) [#/Vol]0.1 10*3/uL0.0-0.2FLima Memorial HospitalBasophils/100 WBC Auto (Bld)Ordered By: Marii Christiansen on 51-03-1551Wwhnfbtkd/100 WBC (Bld)1.0 %.[facility] OhioCalcium [Mass/volume] in Serum or Plasma Ordered By: Marii Christiansen on 05-07-7951Vkkgiat [Mass/Vol]9.3 mg/dL8.6-10.3 [facility] OhioCarbon dioxide, total [Moles/volume] in Serum or PlasmaOrdered By: Marii Christiansen on 22-95-4521EV4 [Moles/Vol]26.2 mmol/L 21.0-31.0[facility] OhioChloride [Moles/volume] in Serum or PlasmaOrdered By: Marii Christiansen on 02-03-8054Vyjuyfbk [Moles/Vol]108 mmol/L 98-107[facility] OhioChoriogonadotropin.beta subunit [Units/volume] in Serum or PlasmaOrdered By: Marii Christiansen on 12-10-2023 HCG.beta subunit QnNegativeSelect Medical Specialty Hospital - Southeast OhioCreatine kinase [Enzymatic activity/volume] in Serum or PlasmaOrdered By: Marii Christiansen on 39-13-1389HH [Catalytic activity/Vol]90 U/I33-173EaqybqhnxSelect Medical Specialty Hospital - Southeast OhioCreatinine [Mass/volume] in Serum or PlasmaOrdered By: Marii Christiansen on 48-82-3631Wnhphyhpvz [Mass/Vol]0.63 mg/dL0.60-1.20[facility] OhioEosinophils Auto (Bld) [#/Vol]Ordered By: Marii Christiansen on 12-10-2023 Eosinophils (Bld) [#/Vol]0.1 10*3/uL0.0-0.45[facility] Eosinophils/100 WBC Auto (Bld)Ordered By: Marii Christiansen on 12-10-2023 Eosinophils/100 WBC (Bld)1.7 %.[facility] OhioErythrocyte distribution width Auto (RBC) [Ratio]Ordered By: Marii Christiansen on 12-10-2023 Erythrocyte distribution width (RBC) [Ratio]18.2 %11.9-15.3FLima Memorial HospitalGlucose [Mass/volume] in Serum or PlasmaOrdered By: Marii Christiansen on 44-29-8668Rarlqpv [Mass/Vol]84 mg/mN40-658SklssaygqSelect Medical Specialty Hospital [facility] [place] Comment on above:ADA recommended reference rangeRandom Glucose Reference Range is dependent on time and content of last meal. Glucose of more than 200 mg/dL in a nonstressed, ambulatory subject supports the diagnosisof Diabetes Mellitus. Hematocrit Auto (Bld) [Volume fraction]Ordered By: Marii Christiansen on 12-10-2023 Hematocrit (Bld) [Volume fraction]34.4 %34.0-46.4FLima Memorial HospitalHemoglobin [Mass/volume] in BloodOrdered By: Marii Christiansen on 12-10-2023 Hemoglobin (Bld) [Mass/Vol]11.2 g/dL11.8-15.4FLima Memorial Hospital INR in Platelet poor plasma by Coagulation assayOrdered By: Marii Christiansen on 29-91-8095FNV Coag (PPP) [Relative time]1.0 {INR}[facility] OhioComment on above:INR Therapeutic Range A) Pre- and [...] by Automated counOrdered By: Marii Christiansen on 52-20-0164LGT corrected for nucl RBC Auto (Bld) [#/Vol]7.1 10*3/uL3.8-11.6FLima Memorial HospitalLymphocytes Auto (Bld) [#/Vol]Ordered By: Marii Christiansen on 12-10-2023 Lymphocytes (Bld) [#/Vol]1.6 10*3/uL1.00-4.8[facility] Lymphocytes/100 WBC Auto (Bld)Ordered By: Marii Christiansen on 12-10-2023 Lymphocytes/100 WBC (Bld)21.9 %.[facility] Auto (RBC) [Entitic mass]Ordered By: Marii Christiansen on 30-97-1256DGA (RBC) [Entitic mass] 28.8 pg24.7-34.3FLima Memorial HospitalMCHC Auto (RBC) [Mass/Vol] Ordered By: Marii Christiansen on 13-42-5168RLMD (RBC) [Mass/Vol]32.5 g/dL32.0-35.0 [facility] OhioMCV Auto (RBC) [Entitic vol]Ordered By: Marii Christiansen on 79-09-2247GEK (RBC) [Entitic vol]88.7 uX54-011XviqajylsSelect Medical Specialty Hospital - Southeast OhioMagnesium [Mass/volume] in Serum or PlasmaOrdered By: Marii Christiansen on 19-68-0175Wgkvvtski [Mass/Vol]1.9 mg/dL1.9-2.7FLima Memorial HospitalMonocyte distribution width [Entitic volume] in Blood by Automated Ordered By: Marii Christiansen on 33-00-9268Raxipwsm distribution width Auto (Bld) [Entitic vol]16.94 %0.00-20.00[facility] OhioMonocytes Auto (Bld) [#/Vol]Ordered By: Marii Christiansen on 17-63-7808Lmybdybtg (Bld) [#/Vol]0.5 10*3/uL0.0-0.8[facility] OhioMonocytes/100 WBC Auto (Bld) Ordered By: Marii Christiansen on 39-03-4647Fgkmprgxd/100 WBC (Bld)6.4 %.[facility] OhioNatriuretic peptide B [Mass/Vol]Ordered By: Marii Christiansen on 34-50-6004Lebpvlhxgcw peptide B (Bld) [Mass/Vol]12.0 pg/mL5-100 [facility] OhioNeutrophils Auto (Bld) [#/Vol]Ordered By: Marii Christiansen on 32-05-8257Yhmqwgpkqap (Bld) [#/Vol]4.9 10*3/uL1.8-7.7FLima Memorial HospitalNeutrophils/100 WBC Auto (Bld)Ordered By: Marii Christiansen on 93-95-4232Xvclyxvbydv/100 WBC (Bld)69.0 %.[facility] No Panel InformationOrdered By: Marii Christiansen on 82-34-0327Rtpuemxhg GFR (CKD-EPI)> 60.0 mL/MinSelect Medical Specialty Hospital - Southeast OhioPharmacy Creatinine Clearance (Aekl709.76[facility] OhioNucleated erythrocytes [Presence] in Blood by Automated countOrdered By: Marii Christiansen on 12-10-2023 Nucleated RBC Auto Ql (Bld)0.1 /100{WBC}0-0.5FLima [facility] Hospital Phosphate [Mass/volume] in Serum or PlasmaOrdered By: Marii Christiansen on 75-92-3691Bganoysid [Mass/Vol]3.7 mg/dL2.5-4.5FLima [facility] Hospital Platelet mean volume Auto (Bld) [Entitic vol]Ordered By: Marii Christiansen on 32-25-9637Hydlbwhx mean volume (Bld) [Entitic vol]9.2 fL6.3-10.7FLima Memorial HospitalPlatelets Auto (Bld) [#/Vol]Ordered By: Marii Christiansen on 82-82-8766[place]gb[place] (Bld) [#/Vol]331 10*3/vM894-038MwqojldvwSelect Medical Specialty Hospital - Southeast OhioPotassium [Moles/volume] in Serum or PlasmaOrdered By: Marii Christiansen on 04-73-3726Oxkjlitoa [Moles/Vol]4.0 mmol/L3.5-5.1FLima Memorial HospitalProthrombin time (PT)Ordered By: Marii Christiansen on 23-28-8019RT Coag (PPP) [Time]11.3 s9.0-12.9[facility] OhioComment on above:A hematocrit value greater than 55% may lead to inaccurate results in coagulation testing. Patientshaving hematocrit values >55% require a special collection tube for coagulation studies. Please contact the laboratory at [phone] for redraw instructions.RBC Auto (Bld) [#/Vol]Ordered By: Marii Christiansen on 36-17-9261VXV (Bld) [#/Vol]3.88 10*6/uL3.60-5.00[facility] Cross Hospitalerum or plasma anion gap determinationOrdered By: Marii Christiansen on 05-28-7981Upwgm gap [Moles/Vol]9.8 mmol/L6.0-15.0[facility] Cross Hospitalodium [Moles/volume] in Serum or PlasmaOrdered By: Marii Christiansen on 56-02-5328Bxmmbc [Moles/Vol]140 mmol/N352-045UbroioeyxSelect Medical Specialty Hospital [facility] [place] Thyrotropin [Units/volume] in Serum or PlasmaOrdered By: Marii Christiansen on 29-04-9301AXP Qn0.61 m[IU]/L0.45-5.33[facility] OhioThyroxine (T4) free [Mass/volume] in Serum or PlasmaOrdered By: Marii Christiansen on 43-81-5989Spsd T4 [Mass/Vol]0.82 ng/dL0.61-1.12[facility] Troponin I.cardiac [Mass/volume] in Serum or Plasma by Detection limit <= 0.01 ng/Ordered By: Marii Christiansen on 12-53-2955Fuhrsmuv I.cardiac DL <= 0.01 ng/mL [Mass/Vol]< 2.3 pg/mL0.0-15.0[facility] OhioUrea nitrogen [Mass/volume] in Serum or PlasmaOrdered By: Marii Christiansen on 31-52-2628Nkpl nitrogen [Mass/Vol]14 mg/dL7-25[facility] OhioWBC Auto (Bld) [#/Vol]Ordered By: Marii Christiansen on 83-95-2453TYT (Bld) [#/Vol]7.1 10*3/uL 3.8-11.6FLima Memorial HospitalConsent for Treatmenton 12-09-2023 Consent for [id number]#1.00TIFFNormal Lima Memorial HospitalMA Mamm Diag w/CAD if perf and 3D LTon 48-80-7830QQ Mamm Diag w/CAD if perf and 3D [...] very important to your health. The current [place] [employer] and National Comprehensive Cancer [...] Mychal Cabezas M.D. Transcribed by: MARCO Technologist: [facility] Assessment: BI-RADS Category 1-Negative Recommendation: Normal interval follow-upDoctors HospitalUS Breast Unilateral Lt Completeon 15-84-2970TK Breast Unilateral Lt CompleteExam Date/Time: 12/09/2023 10:07 EDT Reason for Exam: N63.21 Report PLEASE REFER TO THE MAMMOGRAM REPORT. Ordering Provider: Jennie Durand FINAL REPORT Dictated: 12/09/2023 4:28 pm Mychal Cabezas M.D. Signed (Electronic Signature): 12/09/2023 4:28 pm Signed by: Mychal Cabezas M.D. Transcribed by: MARCO Technologist: [facility]-FairhillPhysician Orderon 50-46-1717Bumednsww Order [id number]#1.00TIFFDoctors HospitalCT ABDOMEN PELVIS W IV CONTRASTon 08-93-2910KS ABDOMEN PELVIS W IV CONTRASTEXAMINATION: CT ABDOMEN [...] Signed by: Jacob Dillon DO 10/25/23 Final resultNormalMerProMedica Flower Hospital panel Auto (Bld)on 08-31-2023 Erythrocyte distribution width (RBC) [Ratio]14.7 %Jtlciy49.5-15.0T[facility] HospitalComment on above:Order Comment: Specimen Type: BLOOD SPECIMEN Ordering Facility: [facility] Address: [place] [id number] By: #### 15067-6 #### [facility] CLIA [id number] [address] [place] [address] [place] OF AMERICAHematocrit (Bld) [Volume fraction] 36.9 %Jgutbu34.0-46.0Faboston hope medical center HospitalComment on above:Order Comment: Specimen Type: BLOOD SPECIMEN Ordering Facility: [facility] Address: [address] [place], [place] [address]Performed By: #### 08135-2 #### [facility] CLIA [id number] [address]ETHemoglobin (Bld) [Mass/Vol]11.7 g/dL Etuwuy80.5-15.5[facility] HospitalComment on above:Order Comment: Specimen Type: BLOOD SPECIMEN Ordering Facility: [facility] Address: [address] [place], [place] [address]Performed By: #### 47894-1 #### [facility] CLIA [id number] [address] [place] [address] (RBC) [Entitic mass]29.8 pg Ywyukj56.0-34.0Faboston hope medical center HospitalComment on above:Order Comment: Specimen Type: BLOOD SPECIMEN Ordering Facility: [facility] Address: [address] [place], [place] [address]Performed By: #### 89849-0 #### [facility] CLIA [id number] [address] [place], [place] [address]MCHC (RBC) [Mass/Vol]31.7 g/dLNormal 30.5-36.0Faboston [facility] medical center HospitalComment on above:Order Comment: Specimen Type: BLOOD SPECIMEN Ordering Facility: [facility] Address: [address] [place], [place] [address]Performed By: #### 27142-1 #### [facility] CLIA [id number] [address] [place], [place] [address]V (RBC) [Entitic vol]93.9 fLNormal 80.0-100.0Faboston hope medical center HospitalComment on above:Order Comment: Specimen Type: BLOOD SPECIMEN Ordering Facility: [facility] Address: [address] [place], [place] [address]Performed By: #### 23098-6 #### [facility] CLIA [id number] [address] [place] [address] (Bld) [#/Vol]10*3/uL Normal<0.01Faboston [facility] medical center HospitalComment on above:Order Comment: Specimen Type: BLOOD SPECIMEN Ordering Facility: [facility] Address: [address] [place], [place] [address]Performed By: #### 87752-1 #### [facility] CLIA [id number] [address] [place] [address] [place] OF AMERICAPlatelet mean volume (Bld) [Entitic vol]11.1 fLNormal9.0-12.7[facility] HospitalComment on above:Order Comment: Specimen Type: BLOOD SPECIMEN Ordering Facility: [facility] Address: [address] [place], [place] [address]Performed By: #### 16717-8 #### [facility] CLIA [id number] [address] [place] [address] [place] AMERICAPlatelets (Bld) [#/Vol]297 10*3/uL Itfsqc943-698Pisiskjn HospitalComment on above:Order Comment: Specimen Type: BLOOD SPECIMEN Ordering Facility: [facility] Address: [address] [place], [place] [address]Performed By: #### 01496-2 #### [facility] CLIA [id number] [address] [place] [address] [place] AMERICARBC (Bld) [#/Vol]3.93 10*6/uLNormal 3.90-5.20[facility] HospitalComment on above:Order Comment: Specimen Type: BLOOD SPECIMEN Ordering Facility: [facility] Address: [address] [place], [place] [address]Performed By: #### 99746-1 #### [facility] CLIA [id number] [address] [place] [address] [place] OF AMERICAWBC (Bld) [#/Vol]6.82 10*3/uLNormal 3.70-11.00Fab[facility] HospitalComment on above:Order Comment: Specimen Type: BLOOD SPECIMEN Ordering Facility: [facility] Address: [address] [place], [place] [address]Performed By: #### 21503-2 #### [facility] CLIA [id number] [address] [place] [address] [place] AMERICAComprehensive metabolic 2000 panelon 47-92-8922Rslnwef [Mass/Vol]4.4 g/dLNormal3.9-4.9Fab[facility] center HospitalComment on above:Order Comment: Specimen Type: BLOOD SPECIMEN Ordering Facility: [facility] Address: [address] [place], [place] [address]Performed By: #### RAOUL, 33827-0 #### [facility] CLIA [id number] [address] [place] [address] [place] AMERICAALP [Catalytic activity/Vol]75 U/L Qxrkmh10-522Zrwwwmaa HospitalComment on above:Order Comment: Specimen Type: BLOOD SPECIMEN Ordering Facility: [facility] Address: [address] [place], [place] [address]Performed By: #### RAOUL, 68514-5 #### [facility] CLIA [id number] [address] [place] [address] [place] AMERICAALT [Catalytic activity/Vol]16 U/L Normal7-38Troy HospitalComment on above:Order Comment: Specimen Type: BLOOD SPECIMEN Ordering Facility: [facility] Address: [address] [place], [place] [address]Performed By: #### RAOUL, 35657-5 #### [facility] CLIA [id number] [address] [place] [address] [place] AMERICAAnion gap [Moles/Vol]11 mmol/LNormal 9-18[facility] HospitalComment on above:Order Comment: Specimen Type: BLOOD SPECIMEN Ordering Facility: [facility] Address: [address] [place], [place] [address]Performed By: #### RAOUL, 73449-2 #### [facility] CLIA [id number] [address] [place] [address] [place] AMERICAAST [Catalytic activity/Vol]21 U/L Qwnfeb50-43Uywbpagj HospitalComment on above:Order Comment: Specimen Type: BLOOD SPECIMEN Ordering Facility: [facility] Address: [address] [place], [place] [address]Performed By: #### RAOUL, #### [facility] CLIA [id number] [address] [place] [address] [place] AMERICABilirubin [Mass/Vol]0.2 mg/dLNormal 0.2-1.3[facility] HospitalComment on above:Order Comment: Specimen Type: BLOOD SPECIMEN Ordering Facility: [facility] Address: [address] [place], [place] [address]Performed By: #### RAOUL, #### [facility] CLIA [id number] [address] [place] [address] [place] AMERICACalcium [Mass/Vol]9.7 mg/dLNormal 8.5-10.2[facility] HospitalComment on above:Order Comment: Specimen Type: BLOOD SPECIMEN Ordering Facility: [facility] Address: [address] [place], [place] [address]Performed By: #### RAOUL, #### [facility] CLIA [id number] [address] [place] [address] [place] AMERICAChloride [Moles/Vol]106 mmol/LHigh 97-105[facility] HospitalComment on above:Order Comment: Specimen Type: BLOOD SPECIMEN Ordering Facility: [facility] Address: [address] [place], [place] [address]Performed By: #### RAOUL, #### [facility] CLIA [id number] [address] [place] [address] [place] AMERICACO2 [Moles/Vol]25 mmol/DNahzbm13-20 [facility] HospitalComment on above:Order Comment: Specimen Type: BLOOD SPECIMEN Ordering Facility: [facility] Address: [address] [place], [place] [address]Performed By: #### RAOUL, #### [facility] CLIA [id number] [address] [place] [address] [place] AMERICACreatinine [Mass/Vol]0.55 mg/dLLow 0.58-0.96[facility] HospitalComment on above:Order Comment: Specimen Type: BLOOD SPECIMEN Ordering Facility: [facility] Address: [address] [place], [place] [address]Performed By: #### RAOUL, 10896-7 #### [facility] CLIA [id number] [address] [place] [address] [place] AMERICACreatinine and Glomerular filtration rate.predicted panel (S/P/Bld)124 mL/min/1.73m???Normal>=60[facility] Comment on above:Order Comment: Specimen Type: BLOOD SPECIMEN Ordering Facility: [facility] Address: [address] [place], [place] [address]Result Comment: Estimated Glomerular Filtration Rate (eGFR) is [...] accurately reflect actual GFR.Performed By: #### RAOUL, 13205-3 #### [facility] CLIA [id number] [address] [place] [address] [place] AMERICAGlucose [Mass/Vol]93 mg/dLNormal 74-99[facility] HospitalComment on above:Order Comment: Specimen Type: BLOOD SPECIMEN Ordering Facility: [facility] Address: [address] [place], [place] [address]ult Comment: The [place] Diabetes Association (ADA) provides guidance for cutoff [...] Standards of Medical Care in Diabetes 2016, [place] [employer]. Diabetes Care. 2016.39(Suppl 1).Performed By: #### RAOUL, #### [facility] CLIA [id number] [address] [place] [address] [place] AMERICAPotassium [Moles/Vol]4.7 mmol/L Normal3.7-5.1[facility] HospitalComment on above:Order Comment: Specimen Type: BLOOD SPECIMEN Ordering Facility: [facility] Address: [address] [place], [place] [address]Performed By: #### RAOUL, #### [facility] CLIA [id number] [address] [place] [address] [place] AMERICAProtein [Mass/Vol]7.3 g/dLNormal 6.3-8.0[facility] HospitalComment on above:Order Comment: Specimen Type: BLOOD SPECIMEN Ordering Facility: [facility] Address: [address] [place], [place] [address]Performed By: #### RAOUL, #### [facility] CLIA [id number] [address] [place] [address] [place] AMERICASodium [Moles/Vol]142 mmol/LNormal 136-144[facility] HospitalComment on above:Order Comment: Specimen Type: BLOOD SPECIMEN Ordering Facility: [facility] Address: [address] [place], [place] [address]Performed By: #### RAOUL, #### [facility] CLIA [id number] [address] [place] [address] [place] AMERICAUrea nitrogen [Mass/Vol]9 mg/dL Normal7-21[facility] HospitalComment on above:Order Comment: Specimen Type: BLOOD SPECIMEN Ordering Facility: [facility] Address: [address] [place], [place] [address]Performed By: #### RAOUL, 04159-6 #### [facility] CLIA [id number] [address] [place] [address] [place] OF AMERICALIPID PANEL, NONFASTINGon 08-31-2023 Cholesterol [Mass/Vol]154 mg/dLNormal<200[facility] HospitalComment on above:Order Comment: Specimen Type: BLOOD SPECIMEN Ordering Facility: [facility] Address: [address] [place], [place] [address]Result Comment: <200 mg/dL, Desirable 200-239 mg/dL, Borderline high >239 mg/dL, HighPerformed By: #### RAOUL, 08256-3 #### [facility] CLIA [id number] [address] [place], [place] [address]HDL CHOLESTEROL, NF69 mg/dLNormal>39 [facility] HospitalComment on above:Order Comment: Specimen Type: BLOOD SPECIMEN Ordering Facility: [facility] Address: [address] [place], [place] [address]Result Comment: 40-59 mg/dL, Acceptable >59 mg/dL, High: Negative risk factor for coronary heart disease <40 mg/dL, Low: Positive risk factor for coronary heart diseasePerformed By: #### RAOUL, 97370-9 #### [facility] CLIA [id number] [address] [place], [place] [address]LDL CHOLESTEROL, NF66 mg/dLNormal <100[facility] HospitalComment on above:Order Comment: Specimen Type: BLOOD SPECIMEN Ordering Facility: [facility] Address: [address] [place], [place] [address]Result Comment: <100 mg/dL, Optimal 100-129 mg/dL, Near optimal/above optimal 130-159 mg/dL, Borderline high 160-189 mg/dL, High >189 mg/dL, Very high Secondary prevention optimal LDL Cholesterol levels are recommended to be < 70 mg/dLPerformed By: #### RAOUL, 04426-1 #### [facility] CLIA [id number] [address] [place], [place] [address]LDL/HDL RATIO, NF0.96 mg/dLNormal <2.54[facility] HospitalComment on above:Order Comment: Specimen Type: BLOOD SPECIMEN Ordering Facility: [facility] Address: [address] [place], [place] [address]Result Comment: Reference: 1. National Cholesterol Education Program ATP III Guideline At-A-Glance Quick Desk Reference: National Heart, Lung, and Blood [place]ter. National Institutes of Health. 2001: NIH Publication No. 01-3305. 2. An International Atherosclerosis Society position paper: global recommendations for the management of dyslipidemia: executive summary, Atherosclerosis. 2014: 232(2):410-413.Performed By: #### RAOUL, #### [facility] CLIA [id number] [address] [place] [address] [place] AMERICANON HDL CHOL, NF85 mg/dLNormal<130 [facility] HospitalComment on above:Order Comment: Specimen Type: BLOOD SPECIMEN Ordering Facility: [facility] Address: [address] [place], [place] [address]Result Comment: <130 mg/dL, Optimal 130-159 mg/dL, Near optimal/above optimal 160-189 mg/dL, Borderline high 190-219 mg/dL, High >219 mg/dL, Very high Secondary prevention optimal non HDL Cholesterol levels are recommended to be <100 mg/dLPerformed By: #### RAOUL, #### [facility] CLIA [id number] [address] [place] [address] STATES OF [facility] HEALTHT CHOL/HDL RATIO NF2.23 mg/dLNormal <5.10[facility] HospitalComment on above:Order Comment: Specimen Type: BLOOD SPECIMEN Ordering Facility: [facility] Address: [address] [place], [place] [address]Performed By: #### RAOUL, #### [facility] CLIA [id number] [address] [place] [address] [place] AMERICATRIGLYCERIDES, NF96 mg/dLNormal<150 [facility] HospitalComment on above:Order Comment: Specimen Type: BLOOD SPECIMEN Ordering Facility: [facility] Address: [address] [place], [place] [address]Result Comment: <150 mg/dL, Normal 150-199 mg/dL, Borderline high 200-499 mg/dL, High >499 mg/dL, Very highPerformed By: #### LIPMARTHA, #### [facility] CLIA [id number] [address] [place] [address] STATES OF AMERICAVLDL CHOLESTEROL, NF19 mg/dLNormal <30[facility] HospitalComment on above:Order Comment: Specimen Type: BLOOD SPECIMEN Ordering Facility: [facility] Address: [address] [place], [place] [address]Performed By: #### LIP, 12731-0 #### [facility] CLIA [id number] [address] [place] [address] [place] AMERICAPHOSPHATIDYLETHANOL (PETH)on 90-32-8328VQG PETHSee NoteAusten Riggs CenterComment on above:Order Comment: Specimen Type: BLOOD SPECIMEN Ordering Facility: [facility] Address: [address] [place] [address] Comment: Authorized individuals can access the [facility] Enhanced Report using the following link: [email or web address] By: #### PETH #### [facility] CLIA [id number] [address] [place], [place] [address]THJM 16:0/18.2 (PLPETH)244 ng/mLNNorthampton State Hospital Comment on above:Order Comment: Specimen Type: BLOOD SPECIMEN Ordering Facility: [facility] Address: [address] [place] [address] Comment: Reference ranges are not well established.Performed By: #### PETH #### [facility] CLIA [id number] [address] [place], [place] [address]SFAU 16:0/18:1 (POPETH)169 ng/mLNNorthampton State Hospital Comment on above:Order Comment: Specimen Type: BLOOD SPECIMEN Ordering Facility: [facility] Address: [address] [place] [address] Comment: PEth 16:0/18:1 (POPEth) Less than 10 ng/mL............Not detected Less than 20 ng/mL............Abstinence or light alcohol consumption 20 - 200 ng/mL................Moderate alcohol consumption Greater than 200 ng/mL........Heavy alcohol consumption or chronic alcohol use (Reference: Sophie Gonzalez and Crystal Helm 2018 J. Forensic Sci)Performed By: #### PETH #### [facility] CLIA [id number] [address] [place], [place] [address]DSJBJefferson County Health Center Comment on above:Order Comment: Specimen Type: BLOOD SPECIMEN Ordering Facility: [facility] Address: [address] [place], [place] [address]Runk[place] Comment: Phosphatidylethanol (PEth) is a group of [...] developed and its performance characteristics determined by [employer]. It has not been cleared or approved by the U.S. Food and Drug Administration. This test was performed in a CLIA-certified laboratory and is intended for clinical purposes. Performed By: [facility] [address] [place] [address] Digester Operator Helper: Osmar Salcido MD, PhD CLIA Number: [id number] By: #### PETH #### [facility] [id number] [address] [place], [place] [address]CUS ABDOMEN W WO CONTRAST MRCPon 41-59-5611ASF ABDOMEN W WO CONTRAST MRCPEXAM: MRI ABDOMEN [...] Signed by: Troy Bond MD 08/20/23 Final resultNormalOhiohealth Shelby HospitalVitamin Aon 61-08-9070Ytdubzymwfyohh NormalNormSt. Mary's Medical CenterComment on above:Result Comment: (NOTE) This test was developed and its performance characteristics determined by [employer]. It has not been cleared or approved by the US Food and Drug Administration. This test was performed in a CLIA certified laboratory and is intended for clinical purposes. Performed By: [facility] [address] [place] [address] Digester Operator Helper: Osmar Salcido MD, PhD CLIA Number: [id number] By: #### PTHNCA, FEBC, FERI, GLYHGB, VD25 #### [address] [address] Internet Consultant: Harpal Adair MD #### AGNES OLIVO, AZN #### [address] [address] Internet Consultant: Patricio Zuñiga MD #### MG ANGEL, CDP #### [address] [place] [address] Internet Consultant: Hilton Armenta, MDRetinol (Vitamin A)0.60 mg/LNormal0.30-1.20As[facility] County Medical CenterComment on above:Performed By: #### HARDIK, ALFONSO, FERI, GLYHGB, VD25 #### [address] [address] Internet Consultant: Harpal Adair MD #### AGNES OLIVO, AZN #### [address] [address] Internet Consultant: Patricio Zuñiga MD #### MG ANGEL, CDP #### [address] [place] [address] Internet Consultant: Hilton Armenta, MDRetinyl Palmitate<0.03Yzruwg5.00-0.10[facility] County Medical CenterComment on above:Performed By: #### ALFONSO DYE, FERI, GLYHGB, VD25 #### [address] [address] Internet Consultant: Harpal Adair MD #### AGNES OLIVO, AZN #### [facility] [address] [place] [address], [place] [address] Internet Consultant: Patricio Zuñiga MD #### CP, MG, VALERIO #### [facility] [address] [place] [address] Internet Consultant: Hilton Armenta MDAlannay aminotransferase [Enzymatic activity/volume] in Serum or PlasmaOrdered By: Yoli Norris on 41-12-5030BJZ [Catalytic activity/Vol]18 U/L7-52[facility] OhioAlbumin [Mass/volume] in Serum or Plasma by Bromocresol green (BCG) dye binding metho Ordered By: Yoli Norris on 14-60-3381Xtaczgn BCG dye [Mass/Vol]4.6 g/dL 3.5-5.7FLima Memorial HospitalAlkaline phosphatase [Enzymatic activity/volume] in Serum or PlasmaOrdered By: Yoli Norris on 40-95-0603PUE [Catalytic activity/Vol]77 U/O78-717XxkwneastSelect Medical Specialty Hospital - Southeast OhioAspartate aminotransferase [Enzymatic activity/volume] in Serum or PlasmaOrdered By: Yoli Norris on 48-36-8165JIT [Catalytic activity/Vol]18 U/F49-44NwtfgtssySelect Medical Specialty Hospital - Southeast OhioBasophils Auto (Bld) [#/Vol]Ordered By: Yoli Norris on 06-01-4827Fbodmzgqr (Bld) [#/Vol]0.1 10*3/uL0.0-0.2FLima Memorial HospitalBasophils/100 WBC Auto (Bld)Ordered By: Yoli Norris on 08-15-2023 Basophils/100 WBC (Bld)0.5 %.[facility] Southeast OhioBilirubin Test strip Ql (U)Ordered By: Yoli Norris on 10-57-5043Zsnyqihsz Ql (U)Negative NegativeSelect Medical Specialty Hospital - Southeast OhioBilirubin.direct [Mass/volume] in Serum or PlasmaOrdered By: Yoli Norris on 04-23-7370Fifzfqyvj.direct [Mass/Vol] 0.00 mg/dL0.03-0.18FLima Memorial HospitalComment on above:If the DBIL is less than 0.1, IBIL is not able to becalculated.Bilirubin.total [Mass/volume] in Serum or PlasmaOrdered By: Yoli Norris on 08-15-2023 Bilirubin [Mass/Vol]0.3 mg/dL0.3-1.0[facility] OhioCalcium [Mass/volume] in Serum or PlasmaOrdered By: Yoli Norris on 77-21-7454Uftllpw [Mass/Vol]9.8 mg/dL8.6-10.3FLima Memorial HospitalCarbon dioxide, total [Moles/volume] in Serum or PlasmaOrdered By: Yoli Norris on 08-15-2023 CO2 [Moles/Vol]21.8 mmol/L21.0-31.0[facility] OhioChloride [Moles/volume] in Serum or PlasmaOrdered By: Yoli Norris on 08-15-2023 Chloride [Moles/Vol]109 mmol/E48-380LwdzstcjoSelect Medical Specialty Hospital - Southeast OhioColor Auto (U)Ordered By: Yoli Norris on 59-14-5395Xbjsj (U)YellowYellowSelect Medical Specialty Hospital - Southeast OhioCreatinine [Mass/volume] in Serum or PlasmaOrdered By: Yoli Norris on 53-74-3430Dubewoqjlw [Mass/Vol]0.76 mg/dL0.60-1.20[facility] OhioEosinophils Auto (Bld) [#/Vol]Ordered By: Yoli Norris on 74-41-1402Yvlqunqzedd (Bld) [#/Vol]0.2 10*3/uL0.0-0.45[facility] Southeast OhioEosinophils/100 WBC Auto (Bld)Ordered By: Yoli Norris on 44-27-7875Okwcrqnvrzy/100 WBC (Bld)2.1 %.[facility] [place] Erythrocyte distribution width Auto (RBC) [Ratio]Ordered By: Yoli Norris on 08-61-2645Fwurgqauibb distribution width (RBC) [Ratio]15.1 %11.9-15.3FLima Memorial HospitalGlobulin Calc (S) [Mass/Vol]Ordered By: Yoli Norris on 84-81-0110Oqnilqet (S) [Mass/Vol]3.2 g/dLSelect Medical Specialty Hospital - Southeast [place] Glucose [Mass/volume] in Serum or PlasmaOrdered By: Yoli Norris on 08-15-2023 Glucose [Mass/Vol]85 mg/mP91-470BkooviohlSelect Medical Specialty Hospital - Southeast OhioComment on above:ADA recommended reference rangeRandom Glucose Reference Range is dependent on time and content of last meal. Glucose of more than 200 mg/dL in a nonstressed, ambulatory subject supports the diagnosisof Diabetes Mellitus.HCG ( test) IA.rapid Ql (U)Ordered By: Yoli Norris on 56-91-6351HBX ( test) Ql (U)NegativeSelect Medical Specialty Hospital - Southeast OhioHematocrit Auto (Bld) [Volume fraction]Ordered By: Yoli Norris on 44-95-5255Nabthimwds (Bld) [Volume fraction]37.2 %34.0-46.4FLima Memorial HospitalHemoglobin [Mass/volume] in BloodOrdered By: Yoli Norris on 99-99-5138Poixroygir (Bld) [Mass/Vol]12.2 g/dL11.8-15.4FLima Memorial HospitalKetones Auto test strip (U) [Mass/Vol]Ordered By: Yoli Norris on 81-31-2582Sogoqwj (U) [Mass/Vol]NegativeNegativeSelect Medical Specialty Hospital - Southeast OhioLeukocytes [#/volume] corrected for nucleated erythrocytes in Blood by Automated counOrdered By: Yoli Norris on 28-84-0968RPS corrected for nucl RBC Auto (Bld) [#/Vol]11.3 10*3/uL3.8-11.6FLima Memorial HospitalLipase [Enzymatic activity/volume] in Serum or PlasmaOrdered By: Yoli Norris on 08-15-2023 Lipase [Catalytic activity/Vol]32.0 U/L11.0-82.0[facility] Southeast OhioLymphocytes Auto (Bld) [#/Vol]Ordered By: Yoli Norris on 08-15-2023 Lymphocytes (Bld) [#/Vol]2.0 10*3/uL1.00-4.8[facility] [place] Lymphocytes/100 WBC Auto (Bld)Ordered By: Yoli Norris on 08-15-2023 Lymphocytes/100 WBC (Bld)17.8 %.[facility] Southeast OhioMCH Auto (RBC) [Entitic mass]Ordered By: Yoli Norris on 02-78-5617BQO (RBC) [Entitic mass] 30.2 pg24.7-34.3FLima Memorial HospitalMCHC Auto (RBC) [Mass/Vol] Ordered By: Yoli Norris on 15-50-1989YLFW (RBC) [Mass/Vol]32.7 g/dL32.0-35.0 [facility] Southeast OhioMCV Auto (RBC) [Entitic vol]Ordered By: Yoli Norris on 53-29-3628WBC (RBC) [Entitic vol]92.4 pS50-660XwjytoictSelect Medical Specialty Hospital - Southeast OhioMonocyte distribution width [Entitic volume] in Blood by Automated Ordered By: Yoli Norris on 14-98-0955Ezbrnhtz distribution width Auto (Bld) [Entitic vol]15.46 %0.00-20.00[facility] Southeast OhioMonocytes Auto (Bld) [#/Vol]Ordered By: Yoli Norris on 63-09-3539Krbpjzamf (Bld) [#/Vol]0.6 10*3/uL0.0-0.8[facility] Southeast OhioMonocytes/100 WBC Auto (Bld) Ordered By: Yoli oNrris on 88-36-5387Ocrryqibt/100 WBC (Bld)5.0 %.[facility] Southeast OhioNeutrophils Auto (Bld) [#/Vol]Ordered By: Yoli Norris on 29-33-9671Incxdmgphsc (Bld) [#/Vol]8.4 10*3/uL1.8-7.7FLima Memorial HospitalNeutrophils/100 WBC Auto (Bld)Ordered By: Yoli Norris on 83-89-4359Cijnnblgfip/100 WBC (Bld)74.6 %.[facility] Nitrite Test strip Ql (U)Ordered By: Yoli Norris on 69-14-2715Zbckbrz Ql (U) NegativeNegativeSelect Medical Specialty Hospital - Southeast OhioNo Panel InformationOrdered By: Yoli Norris on 96-40-4776Xqhoqoeuu GFR (CKD-EPI)> 60.0 mL/MinSelect Medical Specialty Hospital - Southeast OhioPharmacy Creatinine Clearance (Lewd290.62[facility] Southeast OhioNucleated erythrocytes [Presence] in Blood by Automated countOrdered By: Yoli Norris on 35-50-2430Swzxbifae RBC Auto Ql (Bld)0.0 /100{WBC}0-0.5FLima Memorial HospitalPlatelet mean volume Auto (Bld) [Entitic vol]Ordered By: Yoli Norris on 28-02-2504Wjnxqkgv mean volume (Bld) [Entitic vol]9.2 fL6.3-10.7FLima Memorial HospitalPlatelets Auto (Bld) [#/Vol]Ordered By: Yoli Norris on 97-20-9636Ffrwxaeiw (Bld) [#/Vol]321 10*3/xZ851-820XwnlnjydwSelect Medical Specialty Hospital - Southeast OhioPotassium [Moles/volume] in Serum or PlasmaOrdered By: Yoli Norris on 63-93-6396Uqvfqyfxd [Moles/Vol]3.5 mmol/L3.5-5.1FLima Memorial HospitalProtein Auto test strip (U) [Mass/Vol]Ordered By: Yoli Norris on 14-92-0206Axzeqcr (U) [Mass/Vol]Negative NegativeSelect Medical Specialty Hospital - Southeast OhioProtein [Mass/volume] in Serum or PlasmaOrdered By: Yoli Norris on 53-59-7995Fvinqov [Mass/Vol]7.8 g/dL6.4-8.9 [facility] Southeast OhioRBC Auto (Bld) [#/Vol]Ordered By: Yoli Norris on 88-65-1603ITZ (Bld) [#/Vol]4.03 10*6/uL3.60-5.00[facility] Cross Hospitalerum or plasma albumin/globulin mass ratioOrdered By: Yoli Norris on 90-56-9732Rvgtics/Globulin [Mass ratio]1.4 {ratio}[facility] Hospitalerum or plasma anion gap determinationOrdered By: Yoli Norris on 01-01-7470Jmtoc gap [Moles/Vol]12.7 mmol/L6.0-15.0[facility] Hospitalerum or plasma non-glucuronidated bilirubin measurement (mass/volume) Ordered By: Yoli Norris on 14-67-0392Ogdwmqmzf.indirect [Mass/Vol]0.3 mg/dL [facility] Hospitalodium [Moles/volume] in Serum or PlasmaOrdered By: Yoli Norris on 98-33-0277Yxesha [Moles/Vol]140 mmol/Y769-914LeqxsjpcxGreen Cross Hospitalpecific gravity Auto test strip (U) [Rel density]Ordered By: Yoli Norris on 07-12-2989Rdmwjuke gravity (U) [Rel density]1.007 1.001-1.030[facility] Southeast OhioUrea nitrogen [Mass/volume] in Serum or PlasmaOrdered By: Yoli Norris on 62-52-0321Sszk nitrogen [Mass/Vol]11 mg/dL7-25[facility] Southeast OhioUrine clarity by refractometry automatedOrdered By: Yoli Norris on 32-02-1479Zkleyyh Refractometry automated (U)ClearCleHolzer HospitalUrine glucose measurement by automated test strip (mass/volume)Ordered By: Yoli Norris on 08-15-2023 Glucose Auto test strip (U) [Mass/Vol]Normal mg/dLNormSelect Medical Specialty Hospital - ColumbusUrine hemoglobin detection by automated test stripOrdered By: Yoli Norris on 13-48-0369Fkascyxaly Auto test strip Ql (U)NegativeNegSt. Francis HospitalUrine leukocyte esterase detection by automated test stripOrdered By: Yoli Norris on 62-80-2270Ttwxyszux esterase Auto test strip Ql (U)NegativeNegativeSelect Medical Specialty Hospital - Southeast OhioUrobilinogen Auto test strip (U) [Mass/Vol]Ordered By: Yoli Norris on 89-23-8161Wberyjemtmvb (U) [Mass/Vol]Normal mg/dLNoOhioHealth Riverside Methodist HospitalVitamin B1on 07-64-4657Tsdjlkp B1145 nmol/ALulybn22-396GvamyAshtabula County Medical CenterComment on above: Result Comment: (NOTE) INTERPRETIVE INFORMATION: Vitamin B1, Whole Blood This assay measures the concentration of thiamine diphosphate (TDP), the primary active form of vitamin B1. Approximately 90 percent of vitamin B1 present in whole blood is TDP. Thiamine and thiamine monophosphate, which comprise the remaining 10 percent, are not measured. This test was developed and its performance characteristics determined by [employer]. It has not been cleared or approved by the [place] Food and Drug Administration. This test was performed in a CLIA certified laboratory and is intended for clinical purposes. Performed By: [employer] [address] [place] [address] Digester Operator Helper: Osmar Salcido MD, PhD [place] Number: [id number] By: #### PTHNCA, FEBC, FERI, GLYHGB, VD25 #### [facility] [address] [place], [place] [id number] Internet Consultant: Harpal Adair MD #### TYREE OLIVO1, SENAN #### [facility] [address] [place] [address] Internet Consultant: Patricio Zuñiga MD #### CP, MG, CDP #### [facility] [address] [place] [address] Internet Consultant: Hilton Armenta MDWBC Auto (Bld) [#/Vol]Ordered By: Yoli Norris on 93-28-6924DTT (Bld) [#/Vol]11.3 10*3/uL3.8-11.6FLima Memorial HospitalpH Auto test strip (U)Ordered By: Yoli Norris on 27-93-7233yJ (U)8.0 [pH]5.0-9.0[facility] - Southeast OhioZinc, Serumon 22-14-9333Aloh, Serum 95.3 ug/aPDodnce59.0-120.0Ashtabula County Medical CenterComment on above:Result Comment: (NOTE) INTERPRETIVE INFORMATION: Zinc, [...] developed and its performance characteristics determined by [employer]. It has not been cleared or approved by the US Food and Drug Administration. This test was performed in a CLIA certified laboratory and is intended for clinical purposes. Performed By: [facility] [address] [place] [address] Digester Operator Helper: Osmar Salcido MD, PhD CLIA Number: [id number] By: #### PTHNCA, FEBC, FERI, GLYHGB, VD25 #### [facility] [address] [place] [address] Internet Consultant: Harpal Adair MD #### AGNES OLIVO, AZN #### [facility] [address] [place], [place] [id number] Internet Consultant: Patricio Zuñiga MD #### MG ANGEL, CDP #### [address] [place], [place] [phone] Internet Consultant: Hilton Armenta MDB12/Folate Panelon 29-15-2855Rghuf Acid>20.0Normal >4.8Ashtabula County Medical CenterComment on above:Performed By: #### HARDIK, ALFONSO, FERI, GLYHGB, VD25 #### [address] [address] Internet Consultant: Harpal Adair MD #### AGNES OLIVO, AZN #### [facility] [address], [place] [id number] Internet Consultant: Patricio Zuñiga MD #### MG ANGEL, CDP #### [address] [place] [address] Internet Consultant: Clemente Ruizin (Vitamin B12) [Mass/Vol]632 pg/mLNormal 232-1245Ashtabula County Medical CenterComment on above:Performed By: #### KIAA, FEBC, FERI, GLYHGB, VD25 #### [facility] [address] [place] [address] Internet Consultant: Harpal Adair MD #### AGNES OLIVO, AZN #### [facility] [address] [place], [place] [id number] Internet Consultant: Patricio Zuñiga MD #### MG ANGEL, CDP #### [address] [place] [address] Internet Consultant: TARA Ruiz with Diffon 38-94-9392Mlr. Basophil0.06 k/uL Normal0.00-0.20As[facility] County Medical CenterComment on above:Performed By: #### PTHNCA, FEBC, FERI, GLYHGB, VD25 #### [facility] [address] [place] [address] Internet Consultant: Harpal Adair MD #### AGNES OLIVO, AZN #### [facility] [address] [place] [address] Internet Consultant: Patricio Zuñiga MD #### MG ANGEL, CDP #### [address] [place] [phone] Internet Consultant: Sharon Ruiz.Imm.Granulocyte0.03 k/uLNormal0.00-0.30As[facility] County Medical CenterComment on above:Performed By: #### ALFONSO DYE, FERI, GLYHGB, VD25 #### [facility] [address] [place] [address] Internet Consultant: Harpal Adair MD #### AGNES OLIVO, AZN #### [facility] [address] [place] [address] Internet Consultant: Patricio Zuñiga MD #### MG ANGEL, CDP #### [facility] [address] [place] [phone] Internet Consultant: Sharon Ruiz.Neutrophil (Seg)6.33 k/uLNormal1.50-8.10As[facility] County Medical CenterComment on above:Performed By: #### PTHNCA, FEBC, FERI, GLYHGB, VD25 #### [facility] [address] [place] [address] Internet Consultant: Harpal Adair MD #### AGNES OLIVO, AZN #### [facility] [address] [place] [address] Internet Consultant: Patricio Zuñiga MD #### ANGEL MG, CDP #### [address] [place], [place] [address] Internet Consultant: Hilton Armenta MDBasophils/100 WBC (Bld)1 %Normal0-2[facility]veland HospitalComment on above:Performed By: #### PTHNCA, FEBC, FERI, GLYHGB, VD25 #### [address] [address] Internet Consultant: Harpal Adair MD #### AGNES OLIVO, AZN #### [facility] [address] [place] [address] Internet Consultant: Patricio Zuñiga MD #### MG ANGEL, CDP #### [address] [place], [place] [address] Internet Consultant: Hilton Armenta MDEosinophils (Bld) [#/Vol]0.43 10*3/uLNormal 0.00-0.44As[facility] County Medical CenterComment on above:Performed By: #### HARDIK, FECHRIS, FERI, GLYHGB, VD25 #### [address] [address] Internet Consultant: Harpal Adair MD #### AGNES OLIVO, AZN #### [facility] [address] [place] [address] Internet Consultant: Patricio Zuñiga MD #### ANGEL MG, CDP #### [address] [place], [place] [phone] Internet Consultant: Hilton Armenta MDEosinophils/100 WBC (Bld)5 %High1-4[facility] HospitalComment on above:Performed By: #### PTHNCA, FEBC, FERI, GLYHGB, VD25 #### [facility] [address] [place] [address] Internet Consultant: Harpal Adair MD #### ARIAN OLIVOTB1, AZN #### [facility] [address] [place], [place] [phone] Internet Consultant: Patricio Zuñiga MD #### ANGEL, MG, CDP #### [address] [place], [place] [address] Internet Consultant: Hilton Armenta MDErythrocyte distribution width (RBC) [Ratio]14.9 % High11.8-14.4[facility] County Medical CenterComment on above:Performed By: #### KIAA, FEBC, FERI, GLYHGB, VD25 #### [address] [address] Internet Consultant: Harpal Adiar MD #### AGNES OLIVO, AZN #### [facility] [address] [place], [place] [id number] Internet Consultant: Patricio Zuñiga MD #### MG ANGEL, CDP #### [address] [place], [place] 285[address]383 Internet Consultant: Hilton Armenta MDHematocrit (Bld) [Volume fraction]38.0 %Normal 36.3-47.1[facility]atchaug HospitalComment on above:Performed By: #### PTHHAYDEEA, FEBC, FERI, GLYHGB, VD25 #### [place] [address] [place] [address] Internet Consultant: Harpal Adair MD #### ARIAN OLIVOTB1, AZN #### [facility] [address] [place], [place] [phone] Internet Consultant: Patricio Zuñiga MD #### ANGEL MG, CDP #### [address] [place], [place] [phone] Internet Consultant: Hilton Armenta MDHemoglobin (Bld) [Mass/Vol]12.2 g/dLNormal 11.9-15.1[facility] hospitaly Natchaug HospitalComment on above:Performed By: #### PTHNCA, FEBC, FERI, GLYHGB, VD25 #### [address] [address] Internet Consultant: Harpal Adair MD #### ARIAN OLIVOTB1, AZN #### [facility] [address] [place], [place] [id number] Internet Consultant: Patricio Zuñiga MD #### ANGEL, MG, CDP #### [address] [place] [phone] Internet Consultant: Hilton Armenta MDImmature granulocytes/100 WBC (Bld)0 %Bashvk4JujspAshtabula County Medical CenterComment on above:Performed By: #### PTHNCA, FEBC, FERI, GLYHGB, VD25 #### [address] [address] Internet Consultant: Harpal Adair MD #### AGNES OLIVO, AZN #### [facility] [address] [place], [place] [phone] Internet Consultant: Patricio Zuñiga MD #### CP, MG, CDP #### [address] [place], [place] 113[address] Internet Consultant: Hilton Armenta MDLymphocytes (Bld) [#/Vol]1.90 10*3/uLNormal 1.10-3.70[facility] Medical CenterComment on above:Performed By: #### PTHNCA, FEBC, FERI, GLYHGB, VD25 #### [address] [phone] Internet Consultant: Harpal Adair MD #### ARIAN OLIVOTB1, AZN #### [facility] [address] [place], [place] [phone] Internet Consultant: Patricio Zuñiga MD #### CP, MG, CDP #### [address] [place], [place] [address]138383 Internet Consultant: Hilton Armenta MDLymphocytes/100 WBC (Bld)20 %Nwg55-15NsgydAshtabula County Medical CenterComment on above:Performed By: #### MELVINANCA, FEBC, FERI, GLYHGB, VD25 #### [address] [phone] Internet Consultant: Harpal Adair MD #### ARIAN OLIVOTB1, AZN #### [facility] [address] [place] [address] Internet Consultant: Patricio Zuñiga MD #### ANGEL, MG, CDP #### [address] [place], [place] [address]83 Internet Consultant: TRESA Ruiz (RBC) [Entitic mass]29.9 wcKshlek40.2-33.5 [facility] Medical CenterComment on above:Performed By: #### PTHNCA, FEBC, FERI, GLYHGB, VD25 #### [address] [address] Internet Consultant: Harpal Adair MD #### ARIAN OLIVOTB1, AZN #### [facility] [address] [place] [address] Internet Consultant: Patricio Zuñiga MD #### CP, MG, CDP #### [address] [place], [place] [phone] Internet Consultant: TRESA RuizC (RBC) [Mass/Vol]32.1 g/iLFtoagb55.4-34.8[facility] HospitalComment on above:Performed By: #### MELVINANCA, FEBC, FERI, GLYHGB, VD25 #### [address] [address] Internet Consultant: Harpal Adair MD #### ARIAN OLIVOTB1, AZN #### [facility] [address] [place] [address] Internet Consultant: Patricio Zuñiga MD #### CP, MG, CDP #### [address] [place], [place] [phone] Internet Consultant: JERRI RuizCV (RBC) [Entitic vol]93.1 oHFeglwi15.6-102.9 [facility] Medical CenterComment on above:Performed By: #### HARDIK, ALFONSO, FERI, GLYHGB, VD25 #### [address] [address] Internet Consultant: Harpal Adair MD #### AGNES OLIVO, AZN #### [facility] [address] [place] [phone] Internet Consultant: Patricio Zuñiga MD #### ANGEL, MG, CDP #### [address] [place] [phone] Internet Consultant: JERRI Ruizonocytes (Bld) [#/Vol]0.70 10*3/uLNormal0.10-1.20 [facility] Medical CenterComment on above:Performed By: #### MELVINANCA, FEBC, FERI, GLYHGB, VD25 #### [address] [address] Internet Consultant: Harpal Adair MD #### ARIAN OLIVOTB1, AZN #### [facility] [address] [place] [address] Internet Consultant: Patricio Zuñiga MD #### CP, MG, CDP #### [facility] [address] [place] [address] [address] [place], [place] [phone] Internet Consultant: JERRI Ruizonocytes/100 WBC (Bld)7 %Normal3-12[facility] Medical CenterComment on above:Performed By: #### PTHNCA, FEBC, FERI, GLYHGB, VD25 #### [facility] [address] [place] [address] Internet Consultant: Harpal Adair MD #### AGNES OLIVO, AZN #### [facility] [address] [place], [place] [id number] Internet Consultant: Patricio Zuñiga MD #### ANGEL, MG, CDP #### [facility] [address] [place] [address] Dr[address] [place], [place] [phone] Internet Consultant: Hilton Armenta MDNeutrophil (Seg)67 %Eknx43-06FyxqxAshtabula County Medical Center Comment on above:Performed By: #### HARDIK, ALFONSO, FERI, GLYHGB, VD25 #### [facility] [address] [place] [address] Internet Consultant: Harpal Adair MD #### AGNES OLIVO, AZN #### [facility] [address] [place] [address] Internet Consultant: Patricio Zuñiga MD #### ANGEL, MG, CDP #### [facility] [address] [place] [address] [address] [place], [place] [phone] Internet Consultant: Hilton Armenta MDNRBC Automated0.0 per 100 WBCNormal0.0[facility] County Medical CenterComment on above:Performed By: #### PTHNCA, FEBC, FERI, GLYHGB, VD25 #### [facility] [address] [place] [address] Internet Consultant: Harpal Adair MD #### AIRAN OLIVOTB1, AZN #### [facility] [address] [place] [address] Internet Consultant: Patricio Zuñiga MD #### CP, MG, CDP #### [address] [place], [place] [phone] Internet Consultant: Jennifer Ruiz mean volume (Bld) [Entitic vol]10.6 fL Normal8.1-13.5[facility] Medical CenterComment on above:Performed By: #### KIAA, JOSÉ LUISBC, FERI, GLYHGB, VD25 #### [address] [address] Internet Consultant: Harpal Adair MD #### TYREE OLIVO1, AZN #### [facility] [address] [place] [address] Internet Consultant: Patricio Zuñiga MD #### ANGEL, MG, CDP #### [address] [place] [address] Internet Consultant: Nickolas Ruiz (Bld) [#/Vol]355 10*3/bVMcjcsv264-883 [facility] Medical CenterComment on above:Performed By: #### KIAA, FEBC, FERI, GLYHGB, VD25 #### [address] [address] Internet Consultant: Harpal Adair MD #### ARIAN OLIVOTB1, AZN #### [facility] [address] [place] [address] Internet Consultant: Patricio Zuñiga MD #### CP, MG, CDP #### [address] [place], [place] [phone] Internet Consultant: EDIN Ruiz (Bld) [#/Vol]4.08 10*6/uLNormal3.95-5.11[facility] HospitalComment on above:Performed By: #### HARDIK FECHRIS, FERI, GLYHGB, VD25 #### [facility] [address] [place] [address] Internet Consultant: Harpal Adair MD #### AGNES OLIVO, AZN #### [facility] [address] [place] [address] Internet Consultant: Patricio Zuñiga MD #### ANGEL MG, CDP #### [address] [place] [address] Internet Consultant: Hilton Armenta MDHELEN HAYES [facility] ([facility]) [#/Vol]9.5 10*3/uLNormal3.5-11.3[facility] HospitalComment on above:Performed By: #### ALFONSO DYE, FERI, GLYHGB, VD25 #### [facility] [address] [place] [address] Internet Consultant: Harpal Adair MD #### AGNES OLIVO, AZN #### [facility] [address] [place], [place] [id number] Internet Consultant: Patricio Zuñiga MD #### ANGEL MG, CDP #### [address] [place] [phone] Internet Consultant: Hilton Armenta [facility] Metabolic Profon 26-33-9331Syoyfnw [Mass/Vol] 4.5 g/dLNormal3.5-5.2[facility] HospitalComment on above:Performed By: #### KIAA, FECHRIS, FERI, GLYHGB, VD25 #### [facility] [address] [place] [address] Internet Consultant: Harpal Adair MD #### AGNES OLIVO, AZN #### [facility] [address] [place] [address] Internet Consultant: Patricio Zuñiga MD #### MG ANGEL, CDP #### [address] [place], [place] [phone] Internet Consultant: Hilton Armenta MDAlbumin/Glob Ratio1.9Gwsqid3.0-2.5[facility] HospitalComment on above:Performed By: #### PTHNCA, FEBC, FERI, GLYHGB, VD25 #### [facility] [address] [place] [address] Internet Consultant: Harpal Adair MD #### AGNES OLIVO, AZN #### [facility] [address] [place] [address] Internet Consultant: Patricio Zuñiga MD #### MG ANGEL, CDP #### [address] [place], [place] [id number] Internet Consultant: Letty Ruizline Phos85 U/DPfryra76-634BmkrgAshtabula County Medical CenterComment on above:Performed By: #### HARDIK, FEBC, FERI, GLYHGB, VD25 #### [facility] [address] [place] [address] Internet Consultant: Harpal Adair MD #### AGNES OLIVO, AZN #### [facility] [address] [place] [address] Internet Consultant: Patricio Zuñiga MD #### ANGEL MG, CDP #### [address] [place] [address] Internet Consultant: Hilton Armenta MDALT [Catalytic activity/Vol]21 U/LNormal5-33Ashtabula County Medical CenterComment on above:Performed By: #### PTHNCA, FEBC, FERI, GLYHGB, VD25 #### [address] [address] Internet Consultant: Harpal Adair MD #### AGNES OLIVO, AZN #### [facility] [address] [place] [address] Internet Consultant: Patricio Zuñiga MD #### ANGEL, MG, CDP #### [address] [place] [address] Internet Consultant: Robin Ruiz gap [Moles/Vol]11 mmol/LNormal9-17Ashtabula County Medical CenterComment on above:Performed By: #### ALFONSO DYE, ARNOLDO, GLYHGB, VD25 #### [address] [address] Internet Consultant: Harpal Adair MD #### AGNES OLIVO, AZN #### [facility] [address] [place] [phone] Internet Consultant: Patricio Zuñiga MD #### MG ANGEL, CDP #### [address] [place] [address] Internet Consultant: JESSICA Ruiz [Catalytic activity/Vol]22 U/LNormal<32Ashtabula County Medical CenterComment on above:Performed By: #### ALFONSO DYE, ASHLYI, GLYHGB, VD25 #### [address] [address] Internet Consultant: Harpal Adair MD #### AGNES OLIVO, AZN #### [facility] [address], [place] [id number] Internet Consultant: Patricio Zuñiga MD #### ANGEL, MG, CDP #### [address] [place] [address] Internet Consultant: Hilton Armenta MDBilirubin [Mass/Vol]0.2 mg/dLLow0.3-1.2MCleveland Clinic Akron GeneralComment on above:Performed By: #### PTHNCA, FEBC, FERI, GLYHGB, VD25 #### [address] [address] Internet Consultant: Harpal Adair MD #### ARIAN OLIVOTB1, AZN #### [facility] [address], [place] [phone] Internet Consultant: Patricio Zuñiga MD #### CP, MG, CDP #### [address] [place] [address] Internet Consultant: Hilton Armenta MDBUN/CRE Ogqio30Jnulmb3-33Pqoii [facility] Comment on above:Performed By: #### HARDIK, FECHRIS, FERI, GLYHGB, VD25 #### [address] [address] Internet Consultant: Harpal Adair MD #### AGNES OLIVO, AZN #### [facility] [address] [place] [address] [id number] Internet Consultant: Patricio Zuñiga MD #### CP, MG, CDP #### [address] [place], [place] 3487283 Internet Consultant: TARA Ruizalcium [Mass/Vol]9.9 mg/dLNormal8.6-10.4Ashtabula County Medical CenterComment on above:Performed By: #### PTHNCA, FEBC, FERI, GLYHGB, VD25 #### [address] [address] Internet Consultant: Harpal Adair MD #### ARIAN OLIVOTB1, AZN #### [facility] [address], [place] [phone] Internet Consultant: Patricio Zuñiga MD #### CP, MG, CDP #### [address] [place], [place] 8710283 Internet Consultant: TARA Ruizhloride [Moles/Vol]107 mmol/JVagynw36-625AlpawAshtabula County Medical CenterComment on above:Performed By: #### MELVINANCA, FEBC, FERI, GLYHGB, VD25 #### [facility] [address] [place] [address] Internet Consultant: Harpal Adair MD #### AGNES OLIVO, AZN #### [facility] [address], [place] [phone] Internet Consultant: Patricio Zuñiga MD #### ANGEL, MG, CDP #### [address] [place], [place] 3956583 Internet Consultant: TARA RuizO2 [Moles/Vol]23 mmol/ZHhhabd78-42Yhyjy Tiffin HospitalComment on above:Performed By: #### HARDIK, FECHRIS, FERI, GLYHGB, VD25 #### [facility] [address] [place] [address] Internet Consultant: Harpal Adair MD #### AGNES OLIVO, AZN #### [facility] [address] [place] [address] Internet Consultant: Patricio Zuñiga MD #### CP, MG, CDP #### [address] [place], [place] 5029683 Internet Consultant: TARA Ruizreatinine [Mass/Vol]0.6 mg/dLNormal0.5-0.9[facility] HospitalComment on above:Performed By: #### PTHNCA, FEBC, FERI, GLYHGB, VD25 #### [facility] [address] [place] [address] Internet Consultant: Harpal Adair MD #### AGNES OLIVO, AZN #### [facility] [address] [place] [address] Internet Consultant: Patricio Zuñiga MD #### ANGEL, MG, CDP #### [address] [place] [address] Internet Consultant: Hiltno Armenta MDGFR/1.73 sq M.predicted among non-blacks MDRD (S/P/Bld) [Vol rate/Area]mL/min/{1.73_m2}Normal>60Ashtabula County Medical CenterComment on above:Result Comment: These results are not [...] #### PTHNCA, FEBC, FERI, GLYHGB, VD25 #### [facility] [address] [place] [address] [phone] Internet Consultant: Harpal Adair MD #### AGNES OLIVO, AZN #### [facility] [address] [place] [address] Internet Consultant: Patricio Zuñiga MD #### ANGEL, MG, CDP #### [address] [place] [address] Internet Consultant: Hilton Armenta MDGlucose [Mass/Vol]89 mg/cHHgcbpi46-22Kcb[address] [place], [place] [address]Comment on above:Performed By: #### PTHNCA, FEBC, FERI, GLYHGB, VD25 #### [facility] [address] [place] [address] [phone] Internet Consultant: Harpal Adair MD #### AGNES OLIVO, AZN #### [facility] [address] [place] [address] Internet Consultant: Patricio Zuñiga MD #### MG ANGEL, CDP #### [address] [place], [place] 5238683 Internet Consultant: TORIE Ruizotassium [Moles/Vol]4.3 mmol/LNormal3.7-5.3Mer[facility] Loveland HospitalComment on above:Performed By: #### HARDIK, ALFONSO, FERI, GLYHGB, VD25 #### [address] [phone] Internet Consultant: Harpal Adair MD #### AGNES OLIVO, AZN #### [facility] [address] [place] [address] [phone] Internet Consultant: Patricio Zuñiga MD #### MG ANGEL, CDP #### [address] [place] [address] Internet Consultant: TORIE Ruizrotein [Mass/Vol]7.4 g/dLNormal6.4-8.3[facility]veland HospitalComment on above:Performed By: #### ALFONSO DYE, FERI, GLYHGB, VD25 #### [address] [address] Internet Consultant: Harpal Adair MD #### AGNES OLIVO, AZN #### [facility] [address], [place] [id number] Internet Consultant: Patricio Zuñiga MD #### MG ANGEL, CDP #### [address] [place] [address] Internet Consultant: Hilton Armenta MDSodium [Moles/Vol]141 mmol/LHsibus597-143Gvaqu [facility]vel[facility] HospitalComment on above:Performed By: #### ALFONSO DYE, FERI, GLYHGB, VD25 #### [place] [address] [place] [address] Internet Consultant: Harpal Adair MD #### AGNES OLIVO, AZN #### [facility] [address] [place] [address] Internet Consultant: Patricio Zuñiga MD #### MG ANGEL, CDP #### [address] [place] [address] Internet Consultant: Hilton Armenta MDUrea nitrogen [Mass/Vol]12 mg/dLNormal6-20As[facility] County Medical CenterComment on above:Performed By: #### HARDIK, ALFONSO, FERI, GLYHGB, VD25 #### [address] [address] Internet Consultant: Harpal Adair MD #### AGNES OLIVO, AZN #### [facility] [address], [place] [phone] Internet Consultant: Patricio Zuñiga MD #### MG ANGEL, CDP #### [address] [place] [address] Internet Consultant: Hilton Armenta MDFerritinon 79-02-7411Uqaxfppb [Mass/Vol]12 ng/mL Kif90-148UucheAshtabula County Medical CenterComment on above:Performed By: #### HARDIK, ALFONSO, FERI, GLYHGB, VD25 #### [place] [place] [address] Internet Consultant: Harpal Adair MD #### AGNES OLIVO, AZN #### [facility] [address] [place], [place] [phone] Internet Consultant: Patricio Zuñiga MD #### MG ANGEL, CDP #### [address] [place] [phone] Internet Consultant: Hilton Armenta MDHemoglobin A1Con 00-15-2977Gnqdkta [Mass/Vol]114 mg/dLNormalAshtabula County Medical CenterComment on above:Result Comment: The ADA and AACC recommend providing the estimated average glucose result to permit better patient understanding of their HBA1c result.Performed By: #### MELVINANCA, FEBC, FERI, GLYHGB, VD25 #### [facility] [address] [place] [address] Internet Consultant: Harpal Adair MD #### AGNES OLIVO, AZN #### [facility] [address] [place] [address] Internet Consultant: Patricio Zuñiga MD #### ANGEL, MG, CDP #### [address] [place] [phone] Internet Consultant: Hilton Armenta MDHbA1c (Bld) [Mass fraction]5.6 %Normal4.0-6.0Ashtabula County Medical CenterComment on above:Performed By: #### ALFONSO DYE, FERI, GLYHGB, VD25 #### [facility] [address] [place] [address] Internet Consultant: Harpal Adair MD #### AGNES OLIVO, AZN #### [facility] [address] [place] [address] Internet Consultant: Patricio Zuñiga MD #### CP, MG, CDP #### [address] [place] [phone] Internet Consultant: Hilton Armenta MDIron Binding Cap.on 08-12-2023% Fe Ebfsypzohf59 % Awu73-10CdytsAshtabula County Medical CenterComment on above:Performed By: #### PTHNCA, FEBC, FERI, GLYHGB, VD25 #### [facility] [address] [place] [address] Internet Consultant: Harpal Adair MD #### AGNES OLIVO, AZN #### [facility] [address] [place], [place] [phone] Internet Consultant: Patricio Zuñiga MD #### CP, MG, CDP #### [address] [place], [place] 7739283 Internet Consultant: Hilton Armenta MDIron [Mass/Vol]57 ug/fLRvuapc45-463PnheuAshtabula County Medical CenterComment on above:Performed By: #### KIAA, FEBC, FERI, GLYHGB, VD25 #### [place] [place] [address] Internet Consultant: Harpal Adair MD #### AGNES OLIVO, AZN #### [facility] [address] [place], [place] [phone] Internet Consultant: Patricio Zuñiga MD #### ANGEL, MG, CDP #### [address] [place] [address] Internet Consultant: Hilton Armenta MDTotal Fe Binding Rfb397 ug/sZVioitg163-612FypccAshtabula County Medical CenterComment on above:Performed By: #### KIAA, FEBC, FERI, GLYHGB, VD25 #### [address] [address] Internet Consultant: Harpal Adair MD #### TYREE OLIVO1, AZN #### [facility] [address] [place], [place] [phone] Internet Consultant: Patricio Zuñiga MD #### CP, MG, CDP #### [address] [place], [place] 7890283 Internet Consultant: Hilton Armenta MDUnbound Fe Bind Gis802 ug/sJZtxjor231-355IbajzRegional Medical Center on above:Performed By: #### PTHNCA, FEBC, FERI, GLYHGB, VD25 #### [address] [address] Internet Consultant: Harpal Adair MD #### ARIAN OLIVOTB1, AZN #### [facility] [address] [place] [address] Internet Consultant: Patricio Zuñiga MD #### CP, MG, CDP #### [facility] [address] [place] [address] Internet Consultant: Hilton Armenta MDLipid Profileon 56-32-2727Zelrfbhoous [Mass/Vol] 153 mg/dLNormal<200[facility] on above:Result Comment: Cholesterol Guidelines: <200 Desirable 200-240 Borderline >240 UndesirablePerformed By: #### LIPR #### [address] [address] Internet Consultant: TARA Naylorholesterol in HDL [Mass/Vol]68 mg/dLNormal>40 [facility] on above:Result Comment: HDL Guidelines: <40 Undesirable 40-59 Borderline >59 DesirablePerformed By: #### LIPR #### [address] [address] Internet Consultant: TARA Naylorholesterol in LDL [Mass/Vol]77 mg/dLNormal0-130 [facility] on above:Result Comment: LDL Guidelines: <100 Desirable 100-129 Near to/above Desirable 130-159 Borderline >159 Undesirable Direct (measured) LDL and calculated LDL are not interchangeable tests.Performed By: #### LIPR #### [address] [address] Internet Consultant: Christopher Naylorsteroisreal.total/Cholesterol in HDL [Mass ratio]2.3 {ratio}Normal<5[facility] Hospitalcy Loveland HospitalComment on above:Performed By: #### LIPR #### [facility] [address] [place] [address] Internet Consultant: Harpal Adair MDTriglyceride [Mass/Vol]39 mg/dLNormal<150Mer[facility] Loveland HospitalComment on above:Result Comment: Triglyceride Guidelines: <150 Desirable 150-199 Borderline 200-499 High >499 Very high Based on AHA Guidelines for fasting triglyceride, June 2012.Performed By: #### LIPR #### [facility] [address] [place] [address] Internet Consultant: Betty Naylorgnesiumon 29-14-0762Ohmmufcvm [Mass/Vol]2.1 mg/dLNormal1.6-2.6Mer[facility] Natchaug HospitalComment on above:Performed By: #### ALFONSO DYE FERI, ARNOLDO, VD25 #### [address] [address] Internet Consultant: Harpal Adair MD #### AGNES OLIVO, AZN #### [facility] [address] [place] [address] Internet Consultant: Patricio Zuñiga MD #### CP, MG, CDP #### [facility] [address] [place] [address] [place] [address] Internet Consultant: Hilton Armenta [facility], [place] 95-20-5537ZFK, Unnomj37.1 pg/mL Nrekjp12.0-72.0Mercy Natchaug HospitalComment on above:Result Comment: SAMPLES FROM PATIENTS ROUTINELY RECEIVING HIGH DOSE BIOTIN THERAPY MAY SHOW FALSELY DEPRESSED RESULTS. ADDITIONAL INFORMATION MAY BE REQUIRED FOR DIAGNOSIS.Performed By: #### ALFONSO DYE, ARNOLDO, GLYHGB, VD25 #### [facility] [address] [place] [address] Internet Consultant: Harpal Adair MD #### AGNES OLIVO, AZN #### [facility] [address] [place] [address] Internet Consultant: Patricio Zuñiga MD #### MG ANGEL, CDP #### [address] [place] [address] Internet Consultant: Hilton Armenta MDThyroid Stim. Horm.on 51-80-8923Jtyflkb Stim. Horm.1.50 uIU/mLNormal0.30-5.00As[facility] County Medical CenterComment on above:Performed By: #### PTHNCA, FEBC, FERI, GLYHGB, VD25 #### [facility] [address] [place] [address] [phone] Internet Consultant: Harpal Adair MD #### AGNES OLIVO, AZN #### [facility] [address] [place], [place] [phone] Internet Consultant: Patricio Zuñiga MD #### MG ANGEL, CDP #### [address] [place] [address] Internet Consultant: Hilton Armenta MDThyroxine, Freeon 49-39-0001Lyfhqtvmp, Free1.2 ng/dLNormal0.9-1.7Asht[facility]ula County Medical CenterComment on above:Performed By: #### PTHHAYDEEA, FEBC, FERI, GLYHGB, VD25 #### [address] [id number] Internet Consultant: Harpal Adair MD #### AGNES OLIVO, AZN #### [facility] [address] [place], [place] [phone] Internet Consultant: Patricio Zuñiga MD #### MG ANGEL, CDP #### [address] [place] [address] Internet Consultant: Hilton Armenta MDUS GALLBLADDER RUQon 84-18-3748TN GALLBLADDER RUQ EXAMINATION: RIGHT UPPER QUADRANT ULTRASOUND 08/12/2023 7:25 am COMPARISON: None. HISTORY: ORDERING SYSTEM PROVIDED HISTORY: LUQ pain TECHNOLOGIST PROVIDED HISTORY: This procedure can be scheduled via [employer]. Access your [employer] account by visiting [employer]. FINDINGS: LIVER: The liver demonstrates normal echogenicity [...] Signed by: Bret Monson DO 08/12/23 Final resultNormalAshtabula County Medical CenterVitamin D 25 OHon 74-48-8580Wnhpntp D 25 OH45.1 ng/mLNormal>29.9As[facility]ula County Medical CenterComment on above:Result Comment: Reference Range: Vitamin D status Range Deficiency <20 ng/mL Mild Deficiency 20-30 ng/mL Sufficiency 30-100 ng/mL Toxicity >100 ng/mLPerformed By: #### PTHNCA, FEBC, FERI, GLYHGB, VD25 #### [facility] [address] [place], [place] [phone] Internet Consultant: Harpal Adair MD #### AGNES OLIVO, SENAN #### [facility] [address] [place] [address] Internet Consultant: Patricio Zuñiga MD #### CP, MG, CDP #### [facility] [address] [place] [address] Internet Consultant: Tia Ruiz Correspondenceon 66-11-1491Lwddgww [id number]#1.00Brandi Casillsa Medical CenterED Note-Physicianon 85-33-7669VM Note-PhysicianBasic Information Time Seen: Torres GERONIMOShama. 06/09/2023 15:45 [...] the plan of care. (more content not included)...Doctors HospitalComment on above:Result Comment: Electronically Signed By: Shama Macdonald PA-C\.br\Date and Time Signed: 07/14/23 19:57 EDT\.br\Electronically Co-Signed By: Alexis Shukla DO\.br\Date and Time Co-Signed: 07/20/23 07:11 ESTCOVID Quick Testingon 98-00-0545Pepbxp [facility] [employer] Other Consultation Noteon 65-51-3004Aejnbzvbbhbk Note [id number]#1.00[facility] OhioConsent for Treatmenton 26-61-9839Lsfckwy for Treatment [id number]#1.00TIFOhioHealth O'Blen[facility] Clinical Summaryon 24-97-5012KQ Clinical Summary [place] [address] ED Clinical Summary Person Information Name: SHAZIA CHOU [place] Age: 32 Years : 1990 Sex: Female Language: Tanzanian PCP: Jennie Durand DO Marital Status: Phone: [phone] MRN: Visit Id: Visit Reason: Headache; Neck [...] 07/02/2023 15:29:14 07/02/2023 15:29:14 07/02/2023 15:29:14 ADDRESS: [address] [place] [address] [phone] PHYS DOC NOTES: MEDICAL INFORMATION: Prescriptions Given: [...] bedtime). PATIENT EDUCATION INFORMATION: Instructions: Follow up: DIAGNOSIS:NormalCounts Include 234 [facility] CenterED Patient Education Noteon 60-73-2859LJ Patient Education NoteNormalSycamore Medical Center Patient Summaryon 18-72-0010AL Patient Summary [place] [id number] Patient Discharge Instructions Person Information Name: SHAZIA CHOU Age: 32 Years Arrival Date: 07/02/2023 14:03:05 Discharge Diagnosis: Primary Care Physician: Jennie Durand DO Provider Information Primary Provider: Bakari Chester DO Advanced Sand Worker:Merari Polanco PA-C The exam and treatment you received in the Emergency Department were for an urgent problem and are not intended as complete care. It is important that you follow up with a doctor, nurse practitioner,or physician?s medical office assistant instructor for ongoing care. If your symptoms become [...] opioids can be used to help relieve gfkqytra-gd-pfkzcl pain and are often prescribed following a [...] your community drug take- back program or [employer] mail-back program, or flush them down the toilet, following guidance from the Food and Drug Administration (www.fda.gov/Drugs/ResourcesForYou). ? Visit www.cdc.gov/drugoverdose to learn about the risks of opioids abuse and overdose. ? If you believe you may be struggling with addiction, tell your health home care and home health aides teacher and ask for guidance or call [facility]?S National Helpline at 1-008-211-LDIW. l Source: US Department of Health and Human Services/Center for Disease Control & Prevention [facility] Medications Given: Medication Dose Route No medication (more content not included)...[facility] Consultation Noteon 00-94-2671Jppfplsobmaf Note [id number]#1.00TIFCleveland Clinic Avon HospitalConsultation Noteon 21-02-8778Mkcohpxjkkuu Note [id number]#1.00TIFCleveland Clinic Avon HospitalCNPNon 37-81-2876AOINWlzcfelqt (NEADFV) SHAZIA CHOU ([id number]) 1990 F Date Time Provider Department 06/15/23 EILEEN ALVAREZFV During your visit today, we recorded the following information about you: Clara Durbin, RN 06/15/2023 4:57 PM Signed Received clinical notes and test results from [facility] ED visit from 06/10/23. 13 pages. Scanned to chart via Onbase. Routed to provider for review Glen Singh [...] is not alleviating the problem. Patient # [id number] Gorge Betancur 07/03/2023 12:15 PM Signed Per instructions from Dr. Alvarez. LM for patient, also sent message via [employer]!. She needs to be back on diamox [...] 40 mg by mouth once daily. - lgzqnavelgks-iyv-ncfg-FA-vit K (BARIATRIC MULTIVITAMINS) 45 mg iron- 800 [...] [*06/10/2023 Encounter Status:Closed by GORGE BETANCUR on 07/03/23[facility] Discharge Instructionson 93-26-7896Kravwtulx Instructions [id number]#1.00CD:127NoHighland District HospitalAcetamnphn Lvlon 11-33-5402Wzcylziielwnb [Mass/Vol]ug/iQUzo95-10IwzpipLima Memorial HospitalComment on above:Performed By: #### 9584912, 2458021, 5986518, 2501243, 7533692, 86096917 ####[facility] [address] [place], [place] [address]Fdms Diffon 56-02-0731Qqyalfwxn/100 WBC (Bld)0.6 %Normal0.0-2.0Lima Memorial HospitalComment on above:Order Comment: Order Added by Discern Expert.Performed By: #### 7992032, 5886455, 5106370, 4706397, 9567694, 66257460 ####[facility] [address] [place], [place] [address]Anyexftvb/Leukocytes Auto (Bld) [Pure # fraction]0.0 E9/LNormal0.0-0.2[facility] Maryland Hospital CenterComment on above: Order Comment: Order Added by Discern Expert.Performed By: #### 1201335, 1175438, 6355330, 2326134, 9238716, 30388405 ####[facility] [address] [place], [place] [address]Zqaufgtqvnq/100 WBC (Bld)1.9 %Normal 0.0-8.0[facility] Memorial HospitalComment on above:Order Comment: Order Added by Discern Expert.Performed By: #### 0127854, 8186996, 8172995, 0979839, 5691048, 39389729 ####[place] [address] [place], [place] [address]Fscxiqsyoxg/Leukocytes Auto (Bld) [Pure # fraction]0.2 E9/LNormal0.0-0.5 [facility] HospitalComment on above:Order Comment: Order Added by Discern Expert.Performed By: #### 4621335, 0187552, 6784472, 1054839, 4254035, 09936279 ####[address] [address]Swxsytonsrj/100 WBC (Bld)23.4 %Kfgsxh89.0-50.0[facility] Comment on above:Order Comment: Order Added by Ilana Expert.Performed By: #### 5558262, 0215898, 0123871, 0376801, 9819323, 40199634 ####[address] [address]Tcpustxyvrp/Leukocytes Auto (Bld) [Pure # fraction]2.0 E9/LNormal1.0-4.0[facility] Memorial HospitalComment on above:Order Comment: Order Added by Ilana Expert.Performed By: #### 5369467, 6102692, 4849900, 3679469, 0643996, 98766358 ####[address] [address]Beyaiyzvq/100 WBC (Bld)6.9 % Normal4.0-14.0[facility] Memorial HospitalComment on above:Order Comment: Order Added by Ilana Expert.Performed By: #### 9195856, 6473686, 4258761, 7461952, 4305957, 99207868 ####[place] [address] [place], [place] [address]Jjuaducvd/Leukocytes Auto (Bld) [Pure # fraction]0.6 E9/L Normal0.2-1.0[facility] Memorial HospitalComment on above:Order Comment: Order Added by Discern Expert.Performed By: #### 4445709, 2340159, 5445649, 5798879, 5223764, 62476235 ####[place] [address] [place], [place] [address]Svfhhcbjoss/100 WBC (Bld)67.2 %Strcif69.0-75.0[facility] HospitalComment on above:Order Comment: Order Added by Discern Expert. Performed By: #### 3156966, 5608592, 7856772, 0398599, 4329898, 66724583 ####[address] [address] Neutrophils/Leukocytes Auto (Bld) [Pure # fraction]5.6 E9/LNormal2.0-7.5FKettering Memorial HospitalComment on above:Order Comment: Order Added by Discern Expert.Performed By: #### 2238228, 8611679, 3395026, 8319222, 7771814, 03239388 ####[address] [address]GPJ w/ Auto Diffon 96-41-8657Hwrjixcouor distribution width (RBC) [Ratio]18.2 %High 10.9-14.2FKettering Memorial HospitalComment on above:Performed By: #### 5945372, 7883366, 8003204, 0890968, 4986526, 38070259 ####[address] [address]Rijqjzcaic (Bld) [Volume fraction] 34.3 %Bieyje24.0-46.0[facility] Memorial HospitalComment on above:Performed By: #### 1399373, 3334731, 7712671, 7872756, 8787813, 32235891 ####[address] [address]Rsxvxeulvo (Bld) [Mass/Vol]11.5 g/dLLow12.0-16.0L[facility] HospitalComment on above: Performed By: #### 7724868, 4717399, 7268852, 5543422, 1068259, 62454433 ####[facility] [address] [place], [place] [address]RCJ (RBC) [Entitic mass]30.6 ohBpflbk80.0-34.0[facility] HospitalComment on above:Performed By: #### 2375020, 8967851, 0064323, 5919252, 2325964, 76303572 ####[facility] [address] [place] [address]PVSW (RBC) [Mass/Vol]33.6 g/vQGermek19.4-36.0[facility] HospitalComment on above:Performed By: #### 0277501, 4287376, 0520501, 2000034, 7298851, 73732600 ####[address] [address]YNC (RBC) [Entitic vol]91.0 wISmxcoc70.0-100.0[facility] Memorial HospitalComment on above:Performed By: #### 6093490, 3064237, 9049078, 2271140, 8057647, 29519766 ####[address] [address] Platelet mean volume (Bld) [Entitic vol]9.8 fLNormal6.4-10.8[facility] Memorial HospitalComment on above:Performed By: #### 1984267, 2841061, 0759867, 3036749, 8299126, 00480615 ####[address] [address]Vmbpcgijt (Bld) [#/Vol]283.0 E9/HBgnerz353.0-500.0[facility] HospitalComment on above:Performed By: #### 8298896, 1301756, 6927530, 4777915, 9645536, 55900247 ####[address] [address]TGM (Bld) [#/Vol]3.8 E12/LLow4.3-5.9 [facility] HospitalComment on above:Performed By: #### 4422190, 6416882, 4961054, 9094500, 9913003, 28215542 ####[address] [address]ICF corrected for nucl RBC Auto (Bld) [#/Vol]8.4 E9/LNormal4.0-11.0[facility] HospitalComment on above: Performed By: #### 5816916, 4288287, 2215065, 8674801, 3667810, 61055131 ####[address] [address]VGPna 57-82-8061Dtufves [Mass/Vol]4.1 g/dLNormal3.3-5.0[facility] Comment on above:Performed By: #### 2396773, 1663310, 2418781, 4647154, 0330475, 82171445 ####[address] [address]Prdghll/Globulin (S) [Mass conc ratio]1.4Exnwjv5.1-2.2FKettering Memorial HospitalComment on above:Performed By: #### 9947736, 7839281, 1416905, 8534278, 5620477, 36195489 ####[address] [address]YFK [Catalytic activity/Vol]58 Int._Unit/RCndqtb28-22VhqnlyLima Memorial HospitalComment on above:Performed By: #### 6334506, 3266861, 3492433, 8372645, 6905620, 50032996 ####[address] [address]QGX No additional P-5'-P [Catalytic activity/Vol]18 Int._Unit/LNormal6-46[facility] HospitalComment on above:Performed By: #### 6746621, 8201283, 4890842, 9403460, 5511331, 51718122 ####[facility] [address] [place], [place] [address]QXD [Catalytic activity/Vol]20 Int._Unit/LNormal5-43[facility] Comment on above:Performed By: #### 1003581, 3980932, 8622828, 1848084, 9117722, 28406602 ####[address] [place], [place] [address]Sjjjssijl [Mass/Vol]0.1 mg/dLNormal0.0-1.1[facility] Comment on above:Performed By: #### 9889577, 2578726, 2695336, 7651561, 1481136, 80792329 ####[address] [place], [place] [address]Etddrjvlmf [Mass/Vol]0.6 mg/dLNormal0.5-1.3[facility] Comment on above:Performed By: #### 0800740, 8908920, 4631719, 6062890, 8677617, 20140112 ####[address] [place], [place] [address]Xsbxaufm (S) [Mass/Vol]3.2 g/dLNormal1.4-4.0[facility] Comment on above:Performed By: #### 1344348, 4175367, 8063207, 7519947, 0273584, 11409611 ####[address] [place], [place] [address]Gjttlwr [Mass/Vol]7.3 g/dLNormal6.0-7.8[facility] HospitalComment on above:Performed By: #### 0690895, 7445888, 9617655, 8342537, 6749423, 34096470 ####[facility] [address] [place], [place] [address]Atue nitrogen [Mass/Vol]15 mg/dLNormal5-21[facility] Comment on above:Performed By: #### 3462400, 5576837, 5261015, 9788180, 6110972, 53442633 ####[facility] [address] [place], [place] [address]Ddxs nitrogen/Creatinine [Mass ratio]25 No KzurkCvyx28-83XyutwqLima Memorial HospitalComment on above:Performed By: #### 6483660, 9376742, 8579803, 8041573, 2552525, 98984555 ####[facility] [address] [place], [place] [address]Segre gap [Moles/Vol]13 mmol/LNormal6-16[facility] HospitalComment on above:Performed By: #### 3048053, 3581108, 4640263, 9198344, 7994024, 54912746 ####[facility] [address] [place], [place] [address]Doccpqp [Mass/Vol]9.3 mg/dLNormal 8.9-11.1FKettering Memorial HospitalComment on above:Performed By: #### 1868790, 4207220, 1178240, 9688799, 2825156, 93779063 ####[facility] [address] [place], [place] [address]Bsyyoplv [Moles/Vol]107 mmol/LNormal 101-111[facility] HospitalComment on above:Performed By: #### 7346645, 4062713, 4596121, 3484804, 7435658, 21594574 ####[facility] [address] [place], [place] [address]JF3 [Moles/Vol]23 mmol/KQshjra39-56 [facility] HospitalComment on above:Performed By: #### 3345706, 1672945, 9292664, 3287998, 9231877, 34027181 ####[facility] [address] [place], [place] [address]Rhheumr [Mass/Vol]91 mg/dLNormal 55-199[facility] HospitalComment on above:Result Comment: If this glucose result represents a fasting glucose, interpretation should refer tothe following reference range: 55-99 mg/dLPerformed By: #### 6664094, 2502392, 6784030, 1096382, 6477848, 37783489 ####[facility] [address] [place], [place] [address]Yfaophqgv [Moles/Vol]3.6 mmol/LNormal 3.5-5.3[facility] CenterComment on above:Performed By: #### 5021026, 0288600, 1399803, 1593167, 8167572, 79798667 ####[facility] [address] [place], [place] [address]Hznhkz [Moles/Vol]139 mmol/LNormal 135-145Fisher [facility] CenterComment on above:Performed By: #### 0772600, 5211124, 0320761, 3429944, 2874674, 61818764 ####[facility] [address] [place], [place] [address]Ownylzi for Treatmenton 06-09-2023 Consent for [id number]#1.00CD:127Normal [facility] Clinical Summaryon [id number] Clinical Summary [address] [address] ED Clinical Summary Person Information Name: SHAZIA CHOU [facility] Age: 32 Years : 1990 Sex: Female Language: Tanzanian PCP: Jennie Durand DO Marital Status: Phone: [phone] MRN: Visit Id: Visit Reason: Headache; HEADACHE [...] 06/09/2023 18:42:22 06/09/2023 18:42:22 06/09/2023 18:42:22 ADDRESS: [address] [place] [phone] [facility] DOC NOTES: MEDICAL INFORMATION: Prescriptions Given: Medications [...] (at bedtime). PATIENT EDUCATION INFORMATION: Instructions: Paresthesia, Ipck-vl-Tcrj; Migraine Headache, Xtlz-kj-Ojfr Follow up: With: Address: When: [facility] In 3 days 06/12/2023 With: Address: When: Jennie Durand [address], Mic , [facility] [address] [place] [address] [employer] (1) In 3 days 06/12/2023 DIAGNOSIS: 1:Headache; 2:Paresthesia of armNormalFisher [facility]inny Medical CenterED Patient Education Noteon [id number] Patient Education NoteNeurology Paresthesia Paresthesia is a [...] liquor (44 mL). General instructions ? Take rqdk-yok-jlbkfkz and prescription medicines only as told by [...] provider. Document Revised: 05/12/2022 Document Reviewed: 05/12/2022 [employer] Patient Education ? 2022 [employer] Migraine Headache A migraine headache is [...] such as: ? Tiredness. (more content not included)...[facility] Patient Summaryon [id number] Patient Summary [address] [address] Patient Discharge Instructions Person Information Name: SHAZIA CHOU Age: 32 Years Arrival Date: 06/09/2023 15:33:36 Discharge Diagnosis: 1:Headache; 2:Paresthesia of arm Primary Care Physician: Jennie Durand DO Provider Information Primary Provider: Alexis Shukla DO Advanced Sand Worker:None The exam and treatment you received in the Emergency Department were for an urgent problem and are not intended as complete care. It is important that you follow up with a doctor, nurse practitioner,or physician?s medical office assistant instructor for ongoing care. If your symptoms become worse or you do not improve as expected and you are unable to reach your usual health care provider, you should return to the Emergency Department. We are available 24 hours a day. SHAZIA CHOU has been given the following list of patient education materials, prescriptions and follow-up instructions: Follow-up Instructions: With: Address: When: [facility] In 3 days 06/12/2023 With: Address: When: Jennie Durand [address], [facility] [address] [place] [address] [facility] (1) In 3 days 06/12/2023 In the event that this physician does not participate in your insurance network, please consult with your insurance company to find a nearby participating provider. Patient Education Materials: Paresthesia, Cvku-mh-Mowp; Migraine Headache, Kgss-ed-Imjm A MESSAGE TO ALL PATIENTS REGARDING OPIOIDS PRESCRIPTION OPIOIDS: WHAT YOU NEED TO KNOW Prescription opioids can be used to help relieve krwojxzc-od-bqoqil pain and are often prescribed following a [...] your community drug take- back program or [employer] mail-back program, or flush them down the toilet, following guidance from the Food and Drug Administration (www.fda.gov/Drugs/ResourcesForYou). ? Visit www.cdc.gov/drugoverdose to learn about the risks of opioids abuse and overdose. ? If you believe you may be struggling with addiction, tell (more content not included)...NormalCounts Include [facility] CenterEthanolon 97-05-5413Pyuwkjx [Mass/Vol]mg/dLNormal<=7FKettering Memorial HospitalComment on above:Performed By: #### 1849212 ####[facility] [address] [place], [place] [address]Sjgunmqcskon 72-89-8228Swgetfulpnp [Mass/Vol]mg/dLLow6-29 [facility] HospitalComment on above:Performed By: #### 5806237, 6706368, 3580699, 4387611, 5530233, 89656108 ####[facility] [address] [place], [place] [address]V Drug Screenon 06-09-2023 Amphetamines Screen method >1000 ng/mL Ql (U)NegativeNormalNegativeLima Memorial HospitalComment on above:Result Comment: Negative Cutoff: <1000 ng/mL Performed By: #### 4936175 ####[address] [address]Mgyvjajpmojl Screen Ql (U)NegativeNormalNegative [facility] HospitalComment on above:Result Comment: Negative Cutoff: <200 ng/mLPerformed By: #### 1903553 ####[address], [place] [address]Uwlucbvtvgwdett Ql (U)NegativeNormal NegativeLima Memorial HospitalComment on above:Result Comment: Negative Cutoff: <200 ng/mLPerformed By: #### 3544863 ####[address] [address]Druensd Ql (U)NegativeNormalNegative [facility] HospitalComment on above:Result Comment: Negative Cutoff: <300 ng/mLPerformed By: #### 6964488 ####[address] [address]Tlljjxc Screen Ql (U)NegativeNormal [facility] on above:Result Comment: Negative Cutoff: <300 ng/mLPerformed By: #### 7573987 ####[address] [address]Qvolaympdkhhm Screen method >25 ng/mL Ql (U)NegativeNormalNegativeLima Memorial HospitalCompine rest christian mental health services on above:Result Comment: Negative Cutoff: <25 ng/mL These drug screen results are to be used for medical (i.e., treatment) purposes only. Unconfirmed drug screening results must not be used for non-medical purposes (e.g., employment testing, legal testing).Performed By: #### 5197402 ####[address] [address] Tetrahydrocannabinol Screen method >50 ng/mL Ql (U)NegativeNormalNegativeLima Memorial HospitalComment on above:Result Comment: Negative Cutoff: <50 ng/mL Performed By: #### 5434835 ####[facility] [address] [place], [place] [address]QF With Cult Reflexon 91-69-8721Ljpgzcche Ql (U) NegativeNormalNegOhioHealth Southeastern Medical CenterComment on above:Performed By: #### 84832804 #### [facility] [address] [place], [place] [address]Ohaaety (U)CLEARNormalClearLima Memorial HospitalComment on above:Performed By: #### 69628571 #### [facility] [address] [place], [place] [address]Edume (U)YELLOWNormalYellowLima Memorial HospitalComment on above:Performed By: #### 17936162 #### [facility] [address] [place], [place] [address]Pqyvfadj LM Ql (Urine sed)PresentNoHighland District HospitalComment on above:Performed By: #### 50134491 #### [facility] [address] [place], [place] [address]Zraqmmrvmt cells.squamous LM.HPF (Urine sed) [#/Area]0-2Normal 0-2Fisher [facility] Hospital CenterComment on above:Performed By: #### 43100662 #### [facility] [address] [place], [place] [address]Xgipfxl Test strip (U) [Mass/Vol]NegativeNormalNegOhioHealth Southeastern Medical CenterComment on above:Performed By: #### 75737275 #### [facility] [address] [place], [place] [address]Rfloyqullz Ql (U)NegativeNormalSelect Medical [facility] Hospital, AvonComment on above:Performed By: #### 26130253 #### [facility] [address] [place] [address]Wkppjmn (U) [Mass/Vol]NegativeNormalNegOhioHealth Southeastern Medical CenterComment on above:Performed By: #### 25710236 #### [facility] [address] [place], [place] [address]Cnkjtzr.plasma/St. Libory.RBC (Bld) [Mass ratio]9-0Ntvova0-5Sewwbz [facility] CenterComment on above:Performed By: #### 94104267 #### [facility] [address] [place], [place] [address]Tkeetjf Ql (U)NegativeNormalNegativeL[facility] Comment on above:Performed By: #### 16098413 #### [facility] [address] [place] [address]qQ (U)6.0 [pH]Invalid Interpretation Code5.0-9.0[facility] HospitalComment on above:Performed By: #### 38738130 #### [facility] [address] [place] [address]Abyssmz (U) [Mass/Vol]NegativeNormalNegativeLima Memorial HospitalComment on above:Performed By: #### 60010495 #### [facility] [address] [place] [address]Mkntxjge gravity (U) [Rel density]1.010Invalid Interpretation Code1.005-1.030[facility] HospitalComment on above:Performed By: #### 98825059 #### [facility] [address] [place] [address]Cduv of Urine collection methodClean CatchNormalLima Memorial HospitalComment on above:Performed By: #### 49388985 #### [facility] [address] [place] [address]Qwsdktmvqbft Qn (U)0.2 {Lucila'U}/dLNormal0.0-1.0[facility] HospitalComment on above:Performed By: #### 15910467 #### [facility] [address] [place] [address]IBY Auto Ql (U)NegativeNormalNegativeLima Memorial HospitalComment on above:Performed By: #### [id number] #### [facility] [address] [place], [place] [address]YWI LM.HPF (Urine sed) [#/Area]5-6Iahvau3-6FoeyatKettering Memorial HospitalComment on above:Performed By: #### 48426759 #### [facility] [address] [place], [place] [address]kEAKeu 15-32-3578ZUC/1.73 sq M.predicted among non-blacks MDRD (S/P/Bld) [Vol rate/Area]121 mL/min/1.73 c1Egdfoh>=59[facility] Comment on above:Order Comment: Order added by Discern Expert.Result Comment: Chronic kidney disease could be indicated at eGFR's of less than 60 mL/min/1.73m2. Kidney failure is indicated at less than 15 mL/min/1.73m2. Performed By: #### 8372507, 2371117, 7610296, 2015465, 7549956, 18627205 ####[facility] [address] [place], [place] [address]Elk A on 02-20-8061Upjliae [Mass/Vol]42.9 microgram/dLInvalid Interpretation Code 18.9-57.3FKettering Memorial HospitalComment on above:Result Comment: Reference intervals for vitamin A determined from [facility] internal studies. Individuals with vitamin A less than 20 ug/dL are considered vitamin A deficient and those with serum concentrations less than 10 ug/dL are considered severely deficient. This test was developed and its performance characteristics determined by [facility]. It has not been cleared or approved by the Food and Drug Administration. Performed at: [address] [place], [place] [id number] MD Shorty Leosformed By: #### 1005266, 02993345, 6496752, 9691578, 07387524, 94435943, 408607213, 3825285, 4650600, 15389245, 7474688, 4016358, 614492232, 03381290, 9093204, 4327982, 2003055, 5117832 ####[facility] [address] [place], [place] [address]Hkv B1on 03-24-2023 Thiamine (Bld) [Moles/Vol]171.7 nmol/LInvalid Interpretation Code66.5-200.0 [facility] HospitalComment on above:Result Comment: This test was developed and its performance characteristics determined by [facility]. It has not been cleared or approved by the Food and Drug Administration. Performed at: [address] [id number] MD Shorty Leosformed By: #### 3856912, 82939006, 7183914, 1448234, 74333678, 75213292, 615010543, 1749714, 9518398, 94650102, 3734692, 1746790, 708969668, 84621754, 8522702, 3404707, 9590850, 0351387 ####[facility] [address] [place], [place] [address]Ozfo Lvlon 03-24-2023 Zinc [Mass/Vol]85 microgram/dLInvalid Interpretation Shel05-749IalfhhLima Memorial HospitalComment on above:Result Comment: This test was developed and its performance characteristics determined by [facility]. It has not been cleared or approved by the Food and Drug Administration. Detection Limit = 5 Performed at: [address] [id number] MD Shorty Leosformed By: #### 5751422, 40993154, 9763083, 5111151, 36984405, 33580630, 658441195, 5844896, 8493315, 22877669, 8187980, 3671983, 076972238, 58891298, 1195165, 9798954, 0317139, 7859234 ####[facility] [address] [place], [place] [address]OTR [place] 04-62-4212Hzowphzbck.intact [Mass/Vol]17 pg/mLInvalid Interpretation Kcmb66-98 [facility] HospitalComment on above:Result Comment: Performed at: [address] [place] [id number] PhD Cordelia Estradaformed By: #### [id number] ####[address] [address]Bsyg Diffon 03-19-2023 Basophils/100 WBC (Bld)1.1 %Normal0.0-2.0[facility] HospitalComment on above:Order Comment: Order Added by Discern Expert.Performed By: #### 6003684, 09451224, 4810834, 8261762, 04505285, 63015619, 553077772, 4726808, 2725573, 87653596, 1024376, 0096122, 416821291, 85762458, 3263467, 5874994, 6688082, 8782296 ####[address] [address]Mtgszunqg/Leukocytes Auto (Bld) [Pure # fraction]0.1 E9/LNormal0.0-0.2 [facility] HospitalComment on above:Order Comment: Order Added by Discern Expert.Performed By: #### 2401515, 19068555, 8062301, 7073743, 60102160, 42781827, 189347295, 8383036, 5460201, 56730108, 7305273, 9991178, 056550634, 03807744, 7298460, 2004098, 2705773, 4800231 ####[address] [address]Gpjenfjfshn/100 WBC (Bld)4.1 %Normal 0.0-8.0[facility] HospitalComment on above:Order Comment: Order Added by Discern Expert.Performed By: #### 3498340, 25174373, 8655409, 9117432, 21221305, 60606285, 992324405, 2086502, 3595635, 73372563, 7126901, 8805617, 825427572, 19080702, 7852887, 0973280, 9676503, 1231660 ####[facility] [address] [place], [place] [address]Eerityltvsh/Leukocytes Auto (Bld) [Pure # fraction]0.4 E9/LNormal0.0-0.5FKettering Memorial HospitalComment on above:Order Comment: Order Added by Discern Expert.Performed By: #### 1427122, 35907899, 9923998, 0005645, 52639947, 48759741, 200714827, 9759096, 8021592, 43623017, 8801163, 1214488, 732112997, 39622919, 6960559, 5982016, 7007297, 0895884 ####[address] [place], [place] [address]Iyabdfpgcrd/100 WBC (Bld)20.5 %Hmtzhn45.0-50.0[facility] Comment on above:Order Comment: Order Added by Discern Expert.Performed By: #### 5835293, 12787626, 7936164, 7771389, 39894955, 27415458, 809477518, 4659696, 1477047, 14505207, 2372953, 3739980, 987053001, 54694790, 0809045, 2181593, 3998119, 5287945 ####[address] [place], [place] [address]Gxwvwkeskdb/Leukocytes Auto (Bld) [Pure # fraction]2.1 E9/L Normal1.0-4.0[facility] HospitalComment on above:Order Comment: Order Added by Discern Expert.Performed By: #### 7804781, 74416444, 9508547, 2568237, 46655325, 12888132, 957131354, 4382107, 6053087, 80125496, 9623537, 3814016, 914940983, 39020515, 3548680, 5499490, 4497803, 2819270 ####[facility] [address] [place], [place] [address]Mamizmjhj/100 WBC (Bld)7.6 % Normal4.0-14.0[facility] HospitalComment on above:Order Comment: Order Added by Discern Expert.Performed By: #### 0824996, 68819528, 8993388, 9538156, 11453973, 15723453, 856484208, 5651932, 7652289, 14564291, 7922572, 0305231, 036686261, 21560384, 3360978, 7312244, 3938418, 1851381 ####[facility] [address] [place], [place] [address]Ilxnmeilp/Leukocytes Auto (Bld) [Pure # fraction]0.8 E9/LNormal0.2-1.0[facility] HospitalComment on above:Order Comment: Order Added by Discern Expert.Performed By: #### 1175143, 60827234, 9956806, 5861798, 50666294, 09070577, 908785060, 4683379, 9061909, 65383963, 7559541, 0962893, 986119357, 23092977, 2717523, 7252425, 3008047, 4615424 ####[address] [place], [place] [address]Esnqwngrmez/100 WBC (Bld)66.7 %Ikpqvw34.0-75.0[facility] HospitalComment on above:Order Comment: Order Added by Discern Expert. Performed By: #### 8787209, 41580586, 8608818, 1830348, 49958381, 59382116, 200918954, 0283963, 4037967, 37224485, 8315864, 2965310, 044100838, 26538677, 3017381, 7295204, 7339463, 9092131 ####[address] [place], [place] [address]Rdfrgheyuty/Leukocytes Auto (Bld) [Pure # fraction] 6.8 E9/LNormal2.0-7.5FKettering Memorial HospitalComment on above:Order Comment: Order Added by Discern Expert.Performed By: #### 6051601, 63297679, 4810565, 9761020, 85033347, 68147632, 641784547, 9122878, 2390553, 19695962, 1459891, 8827572, 236655823, 57642183, 0825724, 3833346, 2524824, 0669361 ####[address] [place], [place] [address]RNL w/ Auto Diffon 61-70-1944Eicjwiopzbe distribution width (RBC) [Ratio]16.0 %High10.9-14.2FKettering Memorial HospitalComment on above:Performed By: #### 4931242, 50607139, 5436205, 8617358, 71249192, 99697397, 351564456, 5178545, 7900514, 43320228, 7603533, 7934845, 260235726, 14301419, 8209953, 5350299, 2096934, 9743372 ####[address] [address] Hematocrit (Bld) [Volume fraction]37.1 %Odkhen43.0-46.0[facility] HospitalComment on above:Performed By: #### 0129414, 65850942, 2711031, 1493118, 09117423, 46512291, 517702159, 8224865, 6142370, 68390039, 9549264, 8815178, 701176039, 96943786, 6982244, 9463337, 1505877, 1701449 ####[address] [place], [place] [address]Apthduscfh (Bld) [Mass/Vol] 12.6 g/gOGnqalw66.0-16.0[facility] HospitalComment on above:Performed By: #### 1686356, 29369355, 5049187, 8044050, 27076523, 75936219, 069736587, 9726005, 3208446, 67477940, 3471895, 1007476, 683324254, 26190276, 0043735, 2178854, 9013238, 7015362 ####[facility] [address] [place], [place] [address]TYH (RBC) [Entitic mass]31.2 xhDkdkyd94.0-34.0[facility] HospitalComment on above:Performed By: #### 7395287, 21216887, 6355609, 6420382, 10575776, 78816780, 068308034, 0531661, 6768865, 24084602, 8805160, 7579832, 887195632, 48734379, 5451471, 0104032, 1815281, 8105194 ####[facility] [address] [place], [place] [address]MBCU (RBC) [Mass/Vol] 33.9 g/rNPaxfpe75.4-36.0[facility] HospitalComment on above:Performed By: #### 2167302, 38212579, 6110602, 2740842, 91226146, 48392651, 069292859, 9286861, 8602214, 50184942, 4679605, 0977157, 350387537, 19048208, 6729543, 5103590, 9926844, 2074803 ####[facility] [address] [place], [place] [address]KTO (RBC) [Entitic vol]92.0 gENwohec38.0-100.0[facility] HospitalComment on above:Performed By: #### 6227880, 23096627, 8534583, 5321102, 26523365, 53802263, 642171130, 8722524, 9316955, 57606793, 2622914, 6396954, 116289340, 18873269, 9459686, 0168720, 6181783, 9065116 ####[facility] [address] [place] [address]Fayvwgxr mean volume (Bld) [Entitic vol]9.8 fLNormal6.4-10.8[facility] HospitalComment on above:Performed By: #### 4326706, 39995213, 9428589, 8923384, 27945747, 06490960, 836147004, 9728593, 2630582, 45968889, 2835122, 7953685, 329408747, 26054706, 8333638, 4721577, 1580318, 5559205 ####[facility] [address] [place], [place] [address]Tdcrsfvwk (Bld) [#/Vol]369.0 E9/L Jsnxiq883.0-500.0[facility] HospitalComment on above:Performed By: #### 3749662, 63572512, 3870250, 7056928, 16058794, 57881481, 874325724, 6281997, 0048071, 21680443, 8973916, 0609675, 460540659, 79066465, 1950750, 4048152, 1798934, 2690767 ####[address] [address]YVT (Bld) [#/Vol]4.0 E12/LLow4.3-5.9[facility] HospitalComment on above:Performed By: #### 2639350, 58994047, 9878255, 8617112, 15593091, 13196466, 350258511, 5188124, 0221317, 80877580, 4215766, 5195873, 680787327, 03929255, 1783041, 0118656, 3572103, 9089924 ####[address] [address]FXS corrected for nucl RBC Auto (Bld) [#/Vol]10.1 E9/LNormal4.0-11.0[facility] HospitalComment on above:Performed By: #### 4169537, 02993567, 4002220, 7442079, 43234804, 74086898, 231768737, 0985380, 5420704, 12345110, 5243902, 7598069, 810918380, 68553360, 9539444, 1309650, 9139309, 3665487 ####[facility] [address] [place], [place] [address]DAUCLFNLWIwtqhrd By: SYSTEM SYSTEM on 682409-gmqdfmsjqcqrpq D3 [Mass/Vol]43.1 ng/uLYxyjsv64.0 - 100.0 ng/mLFTMC RemisolAlbumin [Mass/Vol]4.0 g/dLNormal3.3 - 5.0 gm/dLFTMC Remisol Albumin/Globulin [Mass ratio]1.2 {ratio}Normal1.1 - 2.2[facility] RemisolALP [Catalytic activity/Vol]61 [iU]/aMnuhpk03 - 98 Int._Unit/LFTMC RemisolALT No additional P-5'-P [Catalytic activity/Vol]17 [iU]/dNormal6 - 46 Int._Unit/LFTMC RemisolAnion gap [Moles/Vol]9 mmol/LNormal6 - 16 mEq/LFTMC RemisolAST [Catalytic activity/Vol]20 [iU]/dNormal5 - 43 Int._Unit/LFTMC RemisolBilirubin [Mass/Vol] 0.4 mg/dLNormal0.0 - 1.1 mg/dLFTMC RemisolCalcium [Mass/Vol]9.2 mg/dLNormal8.9 - 11.1 mg/dLFTMC RemisolChloride [Moles/Vol]113 mmol/FYqxb248 - 111 mmol/LFTMC RemisolCholesterol [Mass/Vol]167 mg/zIMfoxee215 - 200 mg/dLFTMC Remisol Cholesterol in HDL [Mass/Vol]72 mg/dLInvalid Interpretation CodeFTMC Remisol Cholesterol in LDL [Mass/Vol]72 mg/dLNormal<=129mg/dLFTMC RemisolCholesterol in VLDL [Mass/Vol]14 mg/dLNormal7 - 40 mg/dLFTMC RemisolCO2 [Moles/Vol]22 mmol/L Gabved46 - 31 mmol/LFTMC RemisolCobalamin (Vitamin B12) [Mass/Vol]357 pg/mL Laxjci10 - 1500 pg/mLFTMC RemisolCreatinine [Mass/Vol]0.7 mg/dLNormal0.5 - 1.3 mg/dLFTMC RemisolFerritin [Mass/Vol]6 ng/mLLow11 - 307 ng/mLFTMC RemisolFolate [Mass/Vol]15.6 ng/mLNormal>=6.7ng/mLFTMC RemisolFree T4 [Mass/Vol]0.88 ng/dL Normal0.58 - 1.64 ng/dLFTMC RemisolGFR/1.73 sq M.predicted among non-blacks MDRD (S/P/Bld) [Vol rate/Area]116 mL/min/1.73 i7Kzohbz>=59mL/min/1.73 m2FTMC Chem S Globulin (S) [Mass/Vol]3.2 g/dLNormal1.4 - 4.0 gm/dLFTMC RemisolGlucose [Mass/Vol]103 mg/oHHwfksx80 - 199 mg/dLFTMC RemisolIron [Mass/Vol]69 ug/dLNormal 35 - 153 mcg/dLFTMC RemisolIron binding capacity [Mass/Vol]423 ug/vBUbra645 - 400 mcg/dLFTMC RemisolMagnesium [Mass/Vol]2.0 mg/dLNormal1.3 - 2.4 mg/dLFTMC RemisolPotassium [Moles/Vol]3.8 mmol/LNormal3.5 - 5.3 mmol/LFTMC RemisolProtein [Mass/Vol]7.2 g/dLNormal6.0 - 7.8 gm/dLFTMC RemisolSodium [Moles/Vol]140 mmol/L Tozzaz103 - 145 mmol/LFTMC RemisolTransferrin [Mass/Vol]302 mg/aARekrfl150 - 370 mg/dLFTMC RemisolTriglyceride [Mass/Vol]69 mg/dLNormal<=149mg/dLFTMC RemisolTSH Qn0.61 m[IU]/LNormal0.34 - 5.60 mcIU/mLFTMC RemisolUrea nitrogen [Mass/Vol]12 mg/dLNormal5 - 21 mg/dLINTE[facility] [place] RemisolUrea nitrogen/Creatinine [Mass ratio]17 mg/mg Scthvv82 - 20[facility] [place] RemisolCHEMISTRYOrdered By: Radha Ulloa on 03-19-2023 HbA1c (Bld) [Mass fraction]5.8 %Normal<=5.9%[facility] [place] ChemAutoSSCMPon 03-19-2023 Albumin [Mass/Vol]4.0 g/dLNormal3.3-5.0L[facility] HospitalComment on above:Performed By: #### 4350617, 57704490, 8666817, 4732647, 97518362, 45211427, 510807258, 9891573, 3008780, 34562637, 8185083, 8891440, 945979040, 04405944, 5982050, 6152587, 2053866, 6740384 ####[facility] [address] [place], [place] [address]Gvmhdha/Globulin (S) [Mass conc ratio]1.0Iaqedj1.1-2.2FKettering Memorial HospitalComment on above:Performed By: #### 6035118, 71950214, 8480293, 0406380, 85247886, 62477649, 986975437, 7152421, 3525495, 33084980, 1772293, 6107785, 960680714, 35761765, 6932093, 4580818, 5621925, 6703171 ####[facility] [address] [place], [place] [address]AXL [Catalytic activity/Vol]61 Int._Unit/QTffzwp53-90CoiokpLima Memorial HospitalComment on above:Performed By: #### 1701783, 92762284, 2611068, 3919073, 40236214, 65813386, 944743573, 8951983, 5717904, 78072396, 2649273, 9511490, 066148594, 15453342, 1914197, 7356851, 8724337, 1930316 ####[address] [place], [place] [address]WSU No additional P-5'-P [Catalytic activity/Vol]17 Int._Unit/LNormal6-46L[facility] HospitalComment on above:Performed By: #### 4302100, 93917073, 0355310, 5375514, 75102901, 32217357, 188155780, 6199938, 2466300, 45278487, 6881335, 4931035, 673622030, 78206581, 7192867, 2523809, 1240439, 8418458 ####[address] [address]Gcmxi gap [Moles/Vol]9 mmol/LNormal6-16L[facility] HospitalComment on above:Performed By: #### 2310556, 76298659, 9408617, 9027742, 47698768, 67533147, 947537050, 0371349, 0994596, 22442220, 0313821, 8379199, 232331899, 02472245, 1359933, 5285022, 7847787, 3934529 ####[address] [address]BCL [Catalytic activity/Vol]20 Int._Unit/LNormal5-43L[facility] HospitalComment on above:Performed By: #### 1343376, 17881232, 1407066, 3807102, 82786747, 50293781, 482303091, 0798807, 4706395, 91451893, 5292392, 4694718, 309680967, 81226379, 0051971, 9981790, 1266938, 7766353 ####[address] [address] Bilirubin [Mass/Vol]0.4 mg/dLNormal0.0-1.1FKettering Memorial HospitalComment on above:Performed By: #### 8977293, 99123992, 8534878, 0664178, 68275694, 25186025, 592493497, 7230288, 4758807, 51057559, 8203978, 1186351, 348311437, 06810432, 9314466, 6476963, 7950651, 5192813 ####[facility] [address] [place], [place] [address]Vsrlont [Mass/Vol]9.2 mg/dLNormal 8.9-11.1FKettering Memorial HospitalComment on above:Performed By: #### 9710569, 44432888, 8714570, 0329009, 46633945, 19857656, 646560972, 5943310, 5673156, 83568777, 4899068, 5494491, 086010871, 67222352, 5577307, 2152795, 1414638, 6198147 ####[facility] [address] [place], [place] [address]Rhumqcrj [Moles/Vol]113 mmol/OLzdo699-392CdmzegBrook Lane Psychiatric CenterComment on above:Performed By: #### 7847676, 37176175, 2924427, 1605848, 20611052, 25628387, 896390442, 7544479, 0969513, 59976449, 8005695, 0356780, 865063251, 91928798, 1157437, 6591778, 9982858, 4162037 ####[facility] [address] [place], [place] [address]CR2 [Moles/Vol]22 mmol/NXzklpn44-10 [facility] HospitalComment on above:Performed By: #### 0984112, 86570445, 6923038, 5415480, 14210547, 99305245, 397386588, 3959592, 0850399, 51789575, 7762941, 0330614, 878348303, 81298919, 5758932, 5611843, 1485421, 0674226 ####[facility] [address] [place], [place] [address]Rnzzohtekr [Mass/Vol]0.7 mg/dLNormal0.5-1.3FKettering [facility] Hospital Comment on above:Performed By: #### 5413328, 30965487, 3025908, 3674753, 52136370, 90317205, 418035964, 4075078, 1397370, 96054068, 3886559, 2852461, 883316223, 27494342, 3303759, 9495970, 8890231, 2422153 ####[facility] [address] [place], [place] [address]Ajkljfkn (S) [Mass/Vol]3.2 g/dLNormal1.4-4.0L[facility] HospitalComment on above:Performed By: #### 2613513, 88729525, 0088634, 5122396, 28624196, 20623464, 205808251, 1926472, 7576635, 06728709, 8798666, 9433334, 531420952, 87867276, 0517698, 5155095, 0324862, 6870886 ####[facility] [address] [place], [place] [address]Rtwmdtm [Mass/Vol]103 mg/dSXihxrk06-980VljrhrLima Memorial HospitalComment on above:Result Comment: If this glucose result represents a fasting glucose, interpretation should refer tothe following reference range: 55-99 mg/dLPerformed By: #### 3404182, 46286185, 1259499, 5551249, 19355443, 18740136, 876723839, 8753716, 9481656, 66913567, 9343724, 7488016, 817136497, 18377415, 1537540, 7992388, 2356317, 2022673 ####[facility] [address] [place], [place] [address]Tyfgdcoea [Moles/Vol]3.8 mmol/LNormal 3.5-5.3FKettering Memorial HospitalComment on above:Performed By: #### 1714107, 85948066, 7358006, 2798594, 82135500, 98836651, 983607399, 7800697, 8158486, 35667234, 4391977, 0237926, 051798301, 58306931, 5823196, 9438176, 9230824, 7511640 ####[facility] [address] [place], [place] [address]Smdjetn [Mass/Vol]7.2 g/dLNormal6.0-7.8L[facility] HospitalComment on above:Performed By: #### 4340783, 27936735, 2309334, 5569531, 90639076, 79974528, 455975439, 8887688, 8435359, 61900730, 8949940, 3649412, 506389029, 08312993, 4816436, 1668287, 0467341, 4313652 ####[address] [address]Xrbdor [Moles/Vol]140 mmol/LNormal 135-145L[facility] Memorial HospitalComment on above:Performed By: #### 5688451, 77522844, 2199028, 3657421, 17358748, 25920102, 444804140, 8655583, 9050072, 65577129, 0270790, 1009702, 789736052, 66406903, 6664753, 5194844, 5358194, 4808830 ####[address] [address]Euvs nitrogen [Mass/Vol]12 mg/dLNormal5-21[facility] Comment on above:Performed By: #### 1247434, 74710586, 1807807, 0236806, 70523916, 52906674, 601934180, 4461606, 2859640, 66153455, 5851429, 6488914, 579171664, 94245023, 3626235, 5848243, 9174580, 7521284 ####[address], [place] [address]Zfuk nitrogen/Creatinine [Mass ratio]17 No LnrefXrlnxw44-35XhvddnLima Memorial HospitalComment on above: Performed By: #### 3362682, 24136699, 8619928, 3874718, 25477350, 26423747, 512699215, 4274982, 1286818, 66686074, 7016215, 4980982, 994429479, 15227271, 0494554, 7929065, 8640547, 9028739 ####[facility] [address] [place], [place] [address]Qfzckof for Treatmenton 03-46-0292Danaxwp for [id number]#1.00CD:127NormalLima Memorial HospitalFerritinon 71-38-5640Tuelfsfe [Mass/Vol]6 ng/aCPor81-510HkqwvvLima Memorial HospitalComment on above:Result Comment: NORMALS MEN <30 YRS 16-132 ng/mL MEN >30 YRS 8-338 ng/mL WOMEN (PREMEN) 6-104 ng/mL WOMEN (POSTMEN) 12-210 ng/mLPerformed By: #### 6767424, 26913863, 3758515, 6277962, 83408220, 46214769, 088970928, 0353114, 4970937, 15501762, 1293901, 0074695, 605062618, 89298817, 5953831, 0663151, 5776287, 3819987 ####[facility] [address] [place], [place] [address]Okarxkzj 03-19-2023 Folate [Mass/Vol]15.6 ng/mLNormal>=6.7[facility] Hospital CenterComment on above:Performed By: #### 4848014, 18805860, 7750160, 0068263, 89638487, 60738771, 647772274, 0251670, 3543707, 46197420, 6698622, 6699208, 932034975, 15246704, 9191439, 1424566, 0854558, 5236785 ####[facility] [address] [place], [place] [address]Cbsc T4on 83-03-1581Gxey T4 [Mass/Vol]0.88 ng/dLNormal0.58-1.64L[facility] HospitalComment on above: Performed By: #### 1124887, 84373098, 1094677, 1258732, 18071956, 24531935, 541056400, 4431646, 9492344, 67104244, 9889685, 7749371, 308108711, 79443190, 0535679, 1247793, 2546040, 7950518 ####[facility] [address] [place], [place] [address]TMRGHTKBQZFhomgec By: SYSTEM SYSTEM on 03-19-2023 Basophils/100 WBC (Bld)1.1 %Normal0.0 - 2.0 %[facility] HemeAutoSSBasophils/Leukocytes Auto (Bld) [Pure # fraction]0.1 E9/LNormal0.0 - 0.2 E9/LFTMC HemeAutoSS Eosinophils/100 WBC (Bld)4.1 %Normal0.0 - 8.0 %[facility] HemeAutoSS Eosinophils/Leukocytes Auto (Bld) [Pure # fraction]0.4 E9/LNormal0.0 - 0.5 E9/L [facility] HemeAutoSSLymphocytes/100 WBC (Bld)20.5 %Gzqabh13.0 - 50.0 %[facility] HemeAutoSS Lymphocytes/Leukocytes Auto (Bld) [Pure # fraction]2.1 E9/LNormal1.0 - 4.0 E9/L [facility] HemeAutoSSMonocytes/100 WBC (Bld)7.6 %Normal4.0 - 14.0 %[facility] HemeAutoSS Monocytes/Leukocytes Auto (Bld) [Pure # fraction]0.8 E9/LNormal0.2 - 1.0 E9/L [facility] HemeAutoSSNeutrophils/100 WBC (Bld)66.7 %Ndzeco28.0 - 75.0 %[facility] HemeAutoSS Neutrophils/Leukocytes Auto (Bld) [Pure # fraction]6.8 E9/LNormal2.0 - 7.5 E9/L [facility] HemeAutoSSHEMATOLOGYOrdered By: Yoli Robert on 48-91-9299Evfrvqwxqil distribution width (RBC) [Ratio]16.0 %High10.9 - 14.2 %[facility] HemeAutoSSHematocrit (Bld) [Volume fraction]37.1 %Trgkpg10.0 - 46.0 %[facility] HemeAutoSSHemoglobin (Bld) [Mass/Vol]12.6 g/dQUxoicn00.0 - 16.0 gm/dLFTMC HemeAutoSSMCH (RBC) [Entitic mass]31.2 wdBctjwy38.0 - 34.0 pgFTMC HemeAutoSSMCHC (RBC) [Mass/Vol]33.9 g/dL Wtigwj08.4 - 36.0 gm/dLFTMC HemeAutoSSMCV (RBC) [Entitic vol]92.0 vXUqtlyq90.0 - 100.0 fLFTMC HemeAutoSSPlatelet mean volume (Bld) [Entitic vol]9.8 fLNormal6.4 - 10.8 fLFTMC HemeAutoSSPlatelets (Bld) [#/Vol]369.0 E9/ORztvkf713.0 - 500.0 E9/L [facility] HemeAutoSSRBC (Bld) [#/Vol]4.0 E12/LLow4.3 - 5.9 E12/LFTMC HemeAutoSSWBC corrected for nucl RBC Auto (Bld) [#/Vol]10.1 E9/LNormal4.0 - 11.0 E9/LFT[facility] GrtmMkjhEBHupD5oud 71-13-0105TkU3i (Bld) [Mass fraction]5.8 %Normal<=5.9L[facility] HospitalComment on above:Performed By: #### 3028848, 48008198, 7377978, 4563689, 09945771, 67665142, 126369786, 2816367, 3481852, 23062982, 6202397, 5386091, 514346226, 80914503, 7265985, 3673136, 8291669, 3460382 ####[facility] [address] [place], [place] [address]Obhlsg 60-34-9877Jzvd [Mass/Vol]69 microgram/nIXdtvdi98-153UmwsviLima Memorial Hospital Comment on above:Performed By: #### 3955829, 02632270, 7956336, 0654492, 88923116, 63933615, 602125633, 4857803, 8733661, 40114097, 0032733, 7913677, 786970349, 70394037, 9037356, 8859037, 2915267, 0715425 ####[facility] [address] [place], [place] [address]Vomra Panelon 03-19-2023 Cholesterol [Mass/Vol]167 mg/oRTkxotk046-741EzbwuqLima Memorial HospitalComment on above:Performed By: #### 6091951, 09164554, 2768768, 4454322, 14069776, 04728333, 240490553, 3150731, 1507452, 19157538, 1482594, 5025109, 621560367, 00498550, 1618367, 5547015, 4932514, 9951554 ####[facility] [address] [place], [place] [address]Fuuzztpqnhf in HDL [Mass/Vol]72 mg/dL Invalid Interpretation [facility] CenterComment on above:Result Comment: HDL > or equal to 60 mg/dL: Low cardiovascular risk HDL < 40 mg/dL : High cardiovascular riskPerformed By: #### 0719003, 08003801, 1619817, 8639826, 40544051, 97379569, 024830443, 5506325, 9822503, 06137906, 5768157, 5334638, 499330395, 60463163, 2141310, 8905695, 8177692, 6122946 ####[facility] [address] [place] [address] Cholesterol in LDL [Mass/Vol]72 mg/dLNormal<=129[facility] Comment on above:Performed By: #### 9946310, 24593297, 9030237, 5540437, 10683632, 87525796, 397748659, 1243421, 0289044, 08829382, 9672254, 1273426, 415739623, 11389951, 8454505, 4863828, 1076975, 7512881 ####[facility] [address] [place], [place] [address]Ibgqmyeevvq in VLDL [Mass/Vol] 14 mg/dLNormal7-40L[facility] HospitalComment on above:Performed By: #### 1572417, 44211120, 4639340, 0925559, 69307287, 55936817, 489989255, 4582849, 3390877, 43904839, 7015875, 7534057, 921488910, 43601247, 7854573, 1034333, 5137113, 6109020 ####[facility] [address] [place] [address]Naypvpwllajm [Mass/Vol]69 mg/dLNormal<=149L[facility] HospitalComment on above:Performed By: #### 7863530, 87886250, 8187559, 2546521, 73396699, 72593965, 909446481, 5958992, 2096815, 94339676, 5718920, 4619587, 221632127, 38173214, 6048177, 1730348, 6047869, 1270850 ####[address] [address]Dltaidveiqa 87-48-4174Xgqvshnvc [Mass/Vol]2.0 mg/dLNormal1.3-2.4FKettering Memorial Hospital Comment on above:Performed By: #### 9577169, 28251441, 7056604, 7313644, 65134089, 34492173, 659122437, 9521213, 9907145, 90707538, 8849632, 0210020, 440802632, 31913897, 5531694, 1186640, 9837518, 8599871 ####[facility] [address] [facility] [address], [place] [address]Tdechpiyc Orderon 03-19-2023 Physician [id number]#1.00CD:127NormalLima Memorial HospitalTIBC Calculatedon 72-81-4659Gelv binding capacity [Mass/Vol] 423 microgram/rWXywp345-078JeiegxLima Memorial HospitalComment on above:Performed By: #### 4061488, 80079902, 0680446, 4799432, 75893743, 43438296, 226799829, 9903077, 0697938, 54541578, 3802040, 3443472, 096839973, 48963618, 3730626, 6617577, 3221415, 6327388 ####[address] [place], [place] [address]Zdkmpbhltqt [Mass/Vol]302 mg/mHAxfwiy194-216AqnrhzLima Memorial HospitalComment on above:Performed By: #### 8392204, 59365395, 9373905, 7703564, 55990925, 07360962, 754192645, 6242110, 5511924, 14841074, 5290017, 1706217, 851094126, 87257758, 9547398, 3388460, 8930977, 3289123 ####[facility] [address] [facility] [address], [place] [address]MAEbc 80-49-6221AVL Qn0.61 m[IU]/LNormal0.34-5.60L[facility] HospitalComment on above: Performed By: #### 4748908, 23690214, 1928107, 0299417, 15265849, 06056741, 480582460, 4683063, 0926192, 66409924, 5433468, 9054646, 232412930, 85704157, 3912486, 1620087, 0780637, 0243138 ####[facility] [address] [place], [place] [address]Sch B12on 79-80-7714Wbbdboauu (Vitamin B12) [Mass/Vol]357 pg/hLIdwnro38-6103EulsrvLima Memorial HospitalComment on above: Performed By: #### 1481342, 99764395, 8426118, 2572151, 95222491, 09452330, 623511991, 8465699, 2451021, 37279448, 3893944, 3843269, 505147900, 99302518, 6730502, 8131955, 9727166, 8320435 ####[facility] [address] [place], [place] [address]Iysvi[address] Hydroxyon 90-05-943058464256-htljnvdpchynxg D3 [Mass/Vol]43.1 ng/pOGmvfjx89.0-100.0L[facility] HospitalComment on above:Result Comment: Vitamin D deficiency has been defined as a level of serum 25-OH vitamin D less than 20 ng/mL (1,2) by the [place] [employer] and an Endocrine Society practice guideline. The Endocrine Society further defined vitamin D insufficiency as a level between 21 and 29 ng/mL (2). 1. IOM ([place] [employer]). 2010. Dietary reference intakes for calcium and D. [place]: The National Academies Press. 2. Willard WOLF, Luisa HUBBARD, Nestor MALDONADO, et al. Evaluation, treatment, and prevention of vitamin D deficiency: an Endocrine Society clinical practice guideline. JCEM. 2010; 96 (7):1911-30.Performed By: #### 4593037, 40049536, 9887947, 2211007, 73962130, 10953699, 933943042, 1345095, 5155397, 26009808, 4834622, 8612605, 298181241, 66885042, 0509491, 3849393, 5825518, 4678211 ####[facility] [address] [place], [place] [address]nFLShs 87-25-9280ETP/1.73 sq M.predicted among non-blacks MDRD (S/P/Bld) [Vol rate/Area]116 mL/min/1.73 g4Wgpzck>=59L[facility] HospitalComment on above:Order Comment: Order added by Discern Expert.Result Comment: Chronic kidney disease could be indicated at eGFR's of less than 60 mL/min/1.73m2. K idney failure is indicated at less than 15 mL/min/1.73m2.Performed By: #### 6215631, 02771418, 6262336, 9449014, 26242408, 90884865, 300965273, 3164487, 1368165, 48210128, 6078316, 8936014, 235912558, 75054816, 7102017, 4523855, 0943242, 5391495 ####[facility] [address] [place], [place] [address]TWC Head veins WO and W contrast Ramón 79-66-6115RACQEBAPFL: Unremarkable MRV head with and without contrast. Shellfish Grower: WILLIAM Transcribe Date/Time: Jan 29 2023 2:40P Dictated by : JENNIFER RUVALCABA MD This examination was interpreted and the report reviewed and electronically signed by: JENNIFER RUVALCABA MD on Jan 29 2023 2:44PM [facility] DIVISION OF RADIOLOGY* * *Final Report* * * DATE OF EXAM: Jan 29 2023 1:10PM [facility] 0336 - MRV BRAIN WO/W IVCON / PROCEDURE REASON: Idiopathic intracranial hypertension * * * * Physician Interpretation * * * * EXAMINATION: MRV BRAIN WO/W IVCON CLINICAL HISTORY: Idiopathic intracranial hypertension. TECHNIQUE: Intracranial 2-D nmzu-qg-rmsjtm and postcontrast MRV with post-processing performed at the modality and 2D multiplanar and 3D maximum intensity projections were created, reviewed and archived. Contrast dose: 17 mL Dotarem administered intravenously. MQ: MRAB_4 COMPARISON: None. RESULT: INTRACRANIAL MRV: There is no evidence of significant narrowing, occlusion, or thrombosis of the dural venous sinuses. Note is made of a partially empty sella. DIVISION OF RADIOLOGYProvider, [facility] [place] - 01/29/2023 * * *Final Report* * * DATE OF EXAM: Jan 29 2023 1:10PM [facility] 0336 - MRV BRAIN WO/W IVCON / PROCEDURE REASON: Idiopathic intracranial hypertension * * * * Physician Interpretation * * * * EXAMINATION: MRV BRAIN WO/W IVCON CLINICAL HISTORY: Idiopathic intracranial hypertension. TECHNIQUE: Intracranial 2-D fxad-iq-zixsho and postcontrast MRV with post-processing performed at [...] Unremarkable MRV head with and without contrast. Shellfish Grower: WILLIAM Transcribe Date/Time: Jan 29 2023 2:40P Dictated by : JENNIFER RUVALCABA MD This examination was interpreted and the report reviewed and electronically signed by: JENNIFER RUVALCABA MD on Jan 29 2023 2:44PM [facility]Rad[facility] (narrative)[facility] Head veins WO and W contrast IVOrdered By: Ccf Provider on 08-38-5846Xatmyqtqe Clinic CHEMISTRYOrdered By: SYSTEM SYSTEM on 95-79-1220Uhmbjqs [Mass/Vol]3.7 g/dLNormal 3.3 - 5.0 gm/dLFT RemisolAlbumin/Globulin [Mass ratio]1.2 {ratio}Normal1.1 - 2.2[facility] RemisolALP [Catalytic activity/Vol]65 [iU]/mJruqvt93 - 98 Int._Unit/L [facility] RemisolALT No additional P-5'-P [Catalytic activity/Vol]13 [iU]/dNormal6 - 46 Int._Unit/LFT[facility] RemisolAnion gap [Moles/Vol]12 mmol/LNormal6 - 16 mEq/L[facility] RemisolAST [Catalytic activity/Vol]21 [iU]/dNormal5 - 43 Int._Unit/L[facility] Remisol Bilirubin [Mass/Vol]0.5 mg/dLNormal0.0 - 1.1 mg/dLFT[facility] RemisolBilirubin.direct [Mass/Vol]0.2 mg/dLNormal0.1 - 0.4 mg/dLFT[facility] RemisolBilirubin.indirect [Mass or moles/Vol]0.3 mg/dLNormal0.1 - 0.9 mg/dL[facility] RemisolCalcium [Mass/Vol]8.8 mg/dL Low8.9 - 11.1 mg/dLFT[facility] RemisolChloride [Moles/Vol]109 mmol/EJwondj730 - 111 mmol/L[facility] RemisolCO2 [Moles/Vol]20 mmol/LLow21 - 31 mmol/L[facility] Remisol Creatinine [Mass/Vol]0.8 mg/dLNormal0.5 - 1.3 mg/dLFT[facility] RemisolGFR/1.73 sq M.predicted among non-blacks MDRD (S/P/Bld) [Vol rate/Area]99 mL/min/1.73 m2 Normal>=59mL/min/1.73 m2[facility] Chem SGlobulin (S) [Mass/Vol]3.0 g/dLNormal1.4 - 4.0 gm/dL[facility] RemisolGlucose [Mass/Vol]89 mg/gDRbkwmc35 - 199 mg/dL[facility] Remisol Potassium [Moles/Vol]3.8 mmol/LNormal3.5 - 5.3 mmol/L[facility] RemisolProtein [Mass/Vol]6.7 g/dLNormal6.0 - 7.8 gm/dLFT[facility] RemisolSodium [Moles/Vol]137 mmol/L Ghpigh791 - 145 mmol/LFT[facility] RemisolTroponin I.cardiac [Mass/Vol]pg/mLLow10.10 - 27.10 pg/mLFT[facility] RemisolUrea nitrogen [Mass/Vol]12 mg/dLNormal5 - 21 mg/dL[facility] RemisolUrea nitrogen/Creatinine [Mass ratio]15 mg/hcCpnmrc20 - 20[facility] Remisol HEMATOLOGYOrdered By: SYSTEM SYSTEM on [id number]/100 WBC (Bld)0.9 % Normal0.0 - 2.0 %[facility] HemeAutoSSBasophils/Leukocytes Auto (Bld) [Pure # fraction]0.1 E9/LNormal0.0 - 0.2 E9/LFT[facility] HemeAutoSSEosinophils/100 WBC (Bld)1.9 %Normal0.0 - 8.0 %[facility] HemeAutoSSEosinophils/Leukocytes Auto (Bld) [Pure # fraction]0.2 E9/LNormal0.0 - 0.5 E9/LFT[facility] HemeAutoSSLymphocytes/100 WBC (Bld) 25.5 %Phooxz94.0 - 50.0 %[facility] HemeAutoSSLymphocytes/Leukocytes Auto (Bld) [Pure # fraction]2.2 E9/LNormal1.0 - 4.0 E9/L[facility] HemeAutoSSMonocytes/100 WBC (Bld)7.2 %Normal4.0 - 14.0 %[facility] HemeAutoSSMonocytes/Leukocytes Auto (Bld) [Pure # fraction]0.6 E9/LNormal0.2 - 1.0 E9/L[facility] HemeAutoSSNeutrophils/100 WBC (Bld) 64.5 %Gkhrtd50.0 - 75.0 %[facility] HemeAutoSSNeutrophils/Leukocytes Auto (Bld) [Pure # fraction]5.6 E9/LNormal2.0 - 7.5 E9/L[facility] HemeAutoSSHEMATOLOGYOrdered By: Radha Ulloa on [id number] distribution width (RBC) [Ratio]15.4 %High10.9 - 14.2 %[facility] HemeAutoSSHematocrit (Bld) [Volume fraction]35.5 %Normal 34.0 - 46.0 %[facility] HemeAutoSSHemoglobin (Bld) [Mass/Vol]11.5 g/dLLow12.0 - 16.0 gm/dLFTMC HemeAutoSSMCH (RBC) [Entitic mass]30.9 jiZjlosw04.0 - 34.0 pgFTMC HemeAutoSSMCHC (RBC) [Mass/Vol]32.5 g/mZIhblhv04.4 - 36.0 gm/dLFT[facility] HemeAutoSS MCV (RBC) [Entitic vol]95.0 iVXdzfrn23.0 - 100.0 fLFTMC HemeAutoSSPlatelet mean volume (Bld) [Entitic vol]9.4 fLNormal6.4 - 10.8 f[facility] [place] HemeAutoSSPlatelets (Bld) [#/Vol]325.0 E9/DEnutvu624.0 - 500.0 E9/[facility] HemeAutoSSRBC (Bld) [#/Vol] 3.7 E12/LLow4.3 - 5.9 E12/[facility] HemeAutoSSWBC corrected for nucl RBC Auto (Bld) [#/Vol]8.8 E9/LNormal4.0 - 11.0 E9/[facility] HemeAutoSSSEROLOGYOrdered By: Yoli Robert on [id number] hCG QlNegative (01/15/23 11:31 AM)NormalINTEGRIS [facility] [place] Man SeroURINALYSISOrdered By: Jacki Knowles on [id number] LM Ql (Urine sed)1+ /HPFInvalid Interpretation CodeTrace/HPF [facility] [place] UA Auto SSBilirubin Ql (U)Negative (01/15/23 12:51 PM)NormalNegativeINTEGRIS [facility] [place] UA Auto SSClarity (U)SL CLOUDYInvalid Interpretation CodeINTEGRIS [facility] [place] Auto SSColor (U)Yellow (01/15/23 12:51 PM)NormalYellowINTEGRIS [facility] [place] UA Auto SSCrystals LM Ql (Urine sed)Present (01/15/23 12:51 PM)NormalINTEGRIS [facility] [place] UA Auto SSEpithelial cells.squamous LM.HPF (Urine sed) [#/Area]3-4 /HPFNormal0-2/HPFINTEGRIS [facility] [place] UA Auto SSGlucose Test strip (U) [Mass/Vol]Negative (01/15/23 12:51 PM)NormalNegativeINTEGR[facility] [place] UA Auto SSHemoglobin Ql (U)Negative (01/15/23 12:51 PM)NormalNegativeINTEGR[facility] [place] UA Auto SSKetones (U) [Mass/Vol]Negative (01/15/23 12:51 PM)NormalNegativeINTEGR[facility] [place] UA Auto SSLithium.plasma/St. Libory.RBC (Bld) [Mass ratio]0-3 /HPFNormal0-3/HPFINTEGRIS [facility] [place] UA Auto SSNitrite Ql (U)Negative (01/15/23 12:51 PM)NormalNegativeINTEGR[facility] [place] UA Auto SSpH (U)7.5 *NA* (5/4/23 12:51 PM)Invalid Interpretation Code5.0 - 9.0[facility] [place] UA Auto SSProtein (U) [Mass/Vol]Negative (01/15/23 12:51 PM)NormalNegativeINTEGRIS [facility] [place] UA Auto SSSpecific gravity (U) [Rel density] 1.015 *NA* (01/15/23 12:51 PM)Invalid Interpretation Code1.005 - 1.030[facility] [place] UA Auto SSUA Spec DescClean Catch (01/15/23 12:51 PM)NormalINTEGRIS [facility] [place] UA Auto SSUrobilinogen Qn (U)0.8103287 {Lucila'U}/dLNormal0.0 - 1.0 EU/dLINTEGRIS [facility] [place] UA Auto SSWBC Auto Ql (U)1+ *ABN* (01/15/23 12:51 PM)Invalid Interpretation CodeNegativeINTEGRIS [facility] [place]A Auto SSWBC LM.HPF (Urine sed) [#/Area]0-5 /HPFNormal0-5/HPFINTEGRIS [facility] [place] UA Auto SSBLOOD BANKOrdered By: Myrna Contreras on [id number]/Rh InterpNegativeInvalid Interpretation CodeINTEGRIS [facility] [place] BB SubsectionABSC Gel InterpNegative (12/05/22 7:24 AM)NormalINTEGRIS [facility] [place] BB SubsectionURINALYSISOrdered By: Kimberli Martin on [id number] Ql (U)Negative (12/05/22 10:05 AM)NormalNegativeINTE[facility] [place] UA Auto SSClarity (U)Clear (12/05/22 10:05 AM)NormalClearFTM UA Auto SSColor (U)Yellow (12/05/22 10:05 AM)NormalYellowINTEGRIS [facility] [place] UA Auto SSEpithelial cells.squamous LM.HPF (Urine sed) [#/Area]0-2 /HPFNormal0-2/HPFINTEGRIS [facility] [place] UA Auto SSGlucose Test strip (U) [Mass/Vol]Negative (12/05/22 10:05 AM)NormalNegativeINTE[facility] [place] UA Auto SSHemoglobin Ql (U)Negative (12/05/22 10:05 AM)NormalNegativeINTEGR[facility] [place] UA Auto SSKetones (U) [Mass/Vol]Negative (12/05/22 10:05 AM)NormalNegativeINTE[facility] [place] UA Auto SSLithium.plasma/St. Libory.RBC (Bld) [Mass ratio]0-3 /HPFNormal0-3/HPFMC UA Auto SSNitrite Ql (U)Negative (12/05/22 10:05 AM)NormalNegativeINTE[facility] [place] UA Auto SSpH (U)6.5 *NA* (12/05/22 10:05 AM)Invalid Interpretation Code5.0 - 9.0[facility] [place] UA Auto SSProtein (U) [Mass/Vol]Negative (12/05/22 10:05 AM)NormalNegativeINTEGR[facility] [place] UA Auto SSSpecific gravity (U) [Rel density]1.015 *NA* (12/05/22 10:05 AM)Invalid Interpretation Code1.005 - 1.030[facility] [place] UA Auto SSUA Spec DescCatheter (12/05/22 10:05 AM)NormalINTEGRIS [facility] [place] UA Auto SSUrobilinogen Qn (U)1.6846843 {Lucila'U}/dLNormal0.0 - 1.0 EU/dLINTEGRIS [facility] [place] UA Auto SSWBC Auto Ql (U)Negative (12/05/22 10:05 AM)NormalNegativeINTE[facility] [place] UA Auto SSWBC LM.HPF (Urine sed) [#/Area]0- 5 /HPFNormal0-5/HPFMC UA Auto SSCHEMISTRYOrdered By: SYSTEM SYSTEM on [id number] gap [Moles/Vol]13 mmol/LNormal6 - 16 mEq/LFTMC RemisolChloride [Moles/Vol]109 mmol/MTyxebu485 - 111 mmol/LFTMC RemisolCO2 [Moles/Vol]17 mmol/L Low21 - 31 mmol/LFTMC RemisolCreatinine [Mass/Vol]0.6 mg/dLNormal0.5 - 1.3 mg/dL FT RemisolGFR/1.73 sq M.predicted among blacks MDRD (S/P/Bld) [Vol rate/Area] mL/min/1.73 v3Vectuo>=59mL/min/1.73 m2FT Chem SGFR/1.73 sq M.predicted among non-blacks MDRD (S/P/Bld) [Vol rate/Area]mL/min/1.73 a6Ipqpib>=59mL/min/1.73 m2 FT Chem SPotassium [Moles/Vol]3.6 mmol/LNormal3.5 - 5.3 mmol/LFTMC Remisol Sodium [Moles/Vol]135 mmol/JQrdnjn828 - 145 mmol/LFTMC RemisolUrea nitrogen [Mass/Vol]14 mg/dLNormal5 - 21 mg/dLFTMC RemisolCOAGULATIONOrdered By: Yoli Robert on [id number] Coag (PPP) [Time]30.4 gIettby51.1 - 36.5 second(s) FT Auto CoagINR Coag (PPP) [Relative time]0.9 {INR}Invalid Interpretation Code [facility] Auto CoagPT Coag (PPP) [Time]9.9 sNormal9.4 - 12.5 second(s)FT Auto Coag HEMATOLOGYOrdered By: Shasta Eller on [id number] distribution width (RBC) [Ratio]14.0 %Ahzxsj79.9 - 14.2 %[facility] HemeAutoSSHematocrit (Bld) [Volume fraction]38.2 %Qckmng23.0 - 46.0 %[facility] HemeAutoSSHemoglobin (Bld) [Mass/Vol]12.3 g/dKItickc56.0 - 16.0 gm/dLFTMC HemeAutoSSMCH (RBC) [Entitic mass]31.1 pgNormal 27.0 - 34.0 pgFTMC HemeAutoSSMCHC (RBC) [Mass/Vol]32.1 g/lIBluwxq30.4 - 36.0 gm/dLFTMC HemeAutoSSMCV (RBC) [Entitic vol]96.9 zVCyyzrk16.0 - 100.0 fLFTMC HemeAutoSSPlatelet mean volume (Bld) [Entitic vol]9.5 fLNormal6.4 - 10.8 fLFTMC HemeAutoSSPlatelets (Bld) [#/Vol]270.0 E9/ANhyjod326.0 - 500.0 E9/LFTMC HemeAutoSSRBC (Bld) [#/Vol]4.0 E12/LLow4.3 - 5.9 E12/LFTMC HemeAutoSSWBC corrected for nucl RBC Auto (Bld) [#/Vol]13.7 /igh4.0 - 11.0 /[facility] HemeAutoSSCNOVon [id number] Visit (NEADFV) SHAZIA CHOU ([id number]) 1990 F Date Time Provider Department 11/20/22 8:00 AM EILEEN ALVAREZ During your visit today, we recorded the following information about you: Pulse Blood pressure Weight Height 67/minute 137/81 85.7 kg 1.702 m Last Period 10/23/22 Eileen Alvarez MD 11/20/2022 10:33 AM Signed [facility] New Patient [...] due to congenital deformity, 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 She has never seen an skin care specialist. CSF protein 24, Glu 55, Pro 28, [...] due to congenital deformity, seen in the [facility] for: 1. [...] she agreed. She needs to follow with skin care specialist every 6 months. In some patients with intracranial hypertension, there might be a concurrent transverse sinus stenosis and transverse sinus stenting may resolve the symptoms. I will do MRV. --HTN --H depression --Headache: there are a (more content not included)...NormalFaChanning Home AUTO DIFFon [id number] #0.0 103/ulNormal0.0-0.1The [facility] HospitalComment on above:Performed By: #### CMP, JENNIE, LIPA #### [facility] [address] [address] [address] Manuel SandhuBasophils/100 WBC (Bld)0.5 %Normal0.2-2.0[facility] Comment on above:Performed By: #### CMP, JENNIE, LIPA #### [facility] [address] [place], [place] [address] Dr. Manuel Anthony #0.1 103/ulNormal0.0-0.7The [facility] HospitalComment on above: Performed By: #### CMP, JENNIE, LIPA #### [facility] [address] [place], [place] [address] Dr. Manuel Gonzalesosinophils/100 WBC (Bld)1.6 %Normal0.9-7.0The [facility] Comment on above:Performed By: #### CMP, JENNIE, LIPA #### [facility] [address] [place], [place] [address] Dr. Manuel Gonzalesrythrocyte distribution width (RBC) [Ratio]13.8 %Cvkahq42.0-15.0 The [facility] HospitalComment on above:Performed By: #### CMP, JENNIE, LIPA #### [facility] [address] [place] [address] Dr. Manuel SandhuHematocrit (Bld) [Volume fraction]38.7 %Ukjyil65.0-48.0The [facility] HospitalComment on above:Performed By: #### CMP, JENNIE, LIPA #### [facility] [address] [place] [address] Dr. Manuel SandhuHemoglobin (Bld) [Mass/Vol]12.9 g/hBTsxjwp53.0-16.0The [facility] HospitalComment on above:Performed By: #### CMP, JENNIE, LIPA #### [facility] [address] [place] [address] Dr. Manuel Fletcher #0.03 10e3/ulNormal0.00-0.03The [facility] HospitalComment on above:Performed By: #### CMP, JENNIE, LIPA #### [facility] [address] [place] [address] Dr. Manuel Fletcher %0.4 %Normal0.0-0.5The [facility] HospitalComment on above: Performed By: #### CMP, JENNIE, LIPA #### [facility] [address] [place] [address] Dr. Manuel Mac #2.1 103/ulNormal1.2-3.8The [facility] HospitalComment on above:Performed By: #### CMP, JENNIE, LIPA #### [facility] [address] [place] [address] Dr. Manuel Poolehocytes/100 WBC (Bld)25.1 %Eeayix66.5-60.0The [facility] HospitalComment on above:Performed By: #### CMP, JENNIE, LIPA #### [facility] [address] [place] [address] Dr. Manuel WilhelmUAL DIFF REQNONormalThe [facility] HospitalComment on above: Performed By: #### CMP, JENNIE, LIPA #### [facility] [address] [place] [address] Dr. Manuel Hu (RBC) [Entitic mass]32.0 brQslian07.7-34.0The [facility] HospitalComment on above:Performed By: #### CMP, JENNIE, LIPA #### [facility] [address] [place] [address] Dr. Manuel Hu (RBC) [Mass/Vol]33.3 g/dFTktexi32.9-35.2The [facility] HospitalComment on above:Performed By: #### CMP, JENNIE, LIPA #### [facility] [address] [place] [address] Dr. Manuel Hu (RBC) [Entitic vol]96.0 wKUzaefd01.0-99.0The [facility] HospitalComment on above:Performed By: #### CMP, JENNIE, LIPA #### [facility] [address] [place] [address] Dr. Manuel Keith #0.5 103/ulNormal0.3-0.8The [facility] HospitalComment on above:Performed By: #### CMP, JENNIE, LIPA #### [facility] [address] [place] [address] Dr. Manuel Suarezocytes/100 WBC (Bld)5.7 %Normal1.7-12.0The [facility] Comment on above:Performed By: #### CMP, JENNIE, LIPA #### [facility] [address] [place] [address] Dr. Manuel Hurtado #5.6 103/ulNormal1.4-6.5The [facility] HospitalComment on above:Performed By: #### CMP, JENNIE, LIPA #### [facility] [address] [place] [address] Dr. Manuel Kulkarniophils/100 WBC (Bld)66.7 %Lwztii03.0-75.0The [facility] HospitalComment on above:Performed By: #### CMP, JENNIE, LIPA #### [facility] [address] [place] [address] Dr. Manuel Del Toro mean volume (Bld) [Entitic vol]10.9 fLNormal9.5-13.5The Kindred Healthcarement on above:Performed By: #### CMP, JENNIE, LIPA #### [facility] [address] [place] [address] Dr. Manuel SandhuPLT310 103/szEynnhp069-205Jmn [facility] on above: Performed By: #### CMP, JENNIE, LIPA #### [facility] [address] [place] [address] Dr. Manuel SandhuRBC4.03 106/ulCritically low4.20-5.40The [facility] on above:Performed By: #### CMP, JENNIE, LIPA #### [facility] [address] [place] [address] Dr. Manuel SandhuWBC8.4 103/ulNormal4.0-11.0The [facility] on above: Performed By: #### CMP, JENNIE, LIPA #### [facility] [address] [place] [address] Dr. Manuel Rodriguez URINE PROFILEon 24-00-6812Yfxujsmwa Ql (U)NegativeNormal NEGATIVEThe [facility] HospitalCompine rest christian mental health services on above:Performed By: #### AVNI PERALTA #### [facility] [address] [place] [address] Dr. Manuel Eid (U)CLEARNormalCLEARThe [facility] HospitalCompine rest [facility] services on above: Performed By: #### TAMARA PERALTAR #### [facility] [address] [place] [address] Dr. Manuel Gautam (U)LT. YELLOWNormalYELLOWCoshocton Regional Medical Center on above:Performed By: #### TAMARA PERALTAR #### [facility] [address] [place] [address] Dr. Manuel Hernandez micrscopic examination will be performed if indicated. NormalThe [facility] HospitalComment on above:Performed By: #### KATHRYN ERUR #### [facility] [address] [address] [address] Manuel SandhuGlucose Ql (U)NegativeNormalNEGATIVESumma HealthComment on above:Performed By: #### KATHRYN ERUR #### [facility] [address] [address] [address] Manuel SandhuHemoglobin Ql (U)LARGEAbnormalNEGATIVESumma Health Comment on above:Performed By: #### KATHRYN ERUR #### [facility] [address] [address] [address] Manuel SandhuKetones Ql (U)NegativeNormalNEGATIVESumma HealthComment on above:Performed By: #### KATHRYN ERUR #### [facility] [address] [place] [address] Dr. Manuel SandhuLEUKOCYTESTRACEAbnormalNEGATIVESumma HealthComment on above:Performed By: #### KATHRYN ERUR #### [facility] [address] [address] [address] Manuel SandhuNitrite Ql (U)NegativeNormalNEGATIVESumma HealthComment on above:Performed By: #### KATHRYN ERUR #### [facility] [address] [address] [address] Manuel SandhupH (U)6.5 [pH]Normal5-9Sum[facility] HealthComment on above: Performed By: #### KATHRYN ERUR #### [facility] [address] [address] [address] Manuel SandhuSPEC GRAVITY<=1.731Qtfkwtgw6.005-<=1.025[facility] Comment on above:Performed By: #### KATHRYN ERUR #### [facility] [address] [address] [address] Manuel SandhuUA PROTEINNegativeNormalNEGATIVE/ TRACEThe [facility] Comment on above:Performed By: #### KATHRYN ERUR #### [facility] [address] [place] [address] Dr. Manuel [place] INDINDICATEDNoParkview Healthe [facility] HospitalComment on above: Performed By: #### TAMARA PERALTAR #### [facility] [address] [place] [address] Dr. Manuel Vyas Qn (U)0.2 {Lucila'U}/dLNormal0.2 - 1.0The [facility] HospitalComment on above:Performed By: #### AVNI PERALTA #### [facility] [address] [place] [address] Dr. Manuel TianF CHEM 8 (BAS METB)on 28-00-8956Qaznb gap [Moles/Vol]11.7 mmol/LNormalThe [facility] HospitalComment on above:Performed By: #### CMP, JENNIE, LIPA #### [facility] [address] [place] [address] Dr. Manuel SandhuCalcium [Mass/Vol]9.1 mg/dLNormal8.5-10.1The [facility] Comment on above:Performed By: #### CMP, JENNIE, LIPA #### [facility] [address] [place] [address] Dr. Manuel SandhuChloride [Moles/Vol]105 mmol/FUntpun44-797Kkm [facility] Comment on above:Performed By: #### CMP, JENNIE, LIPA #### [facility] [address] [place] [address] Dr. Manuel SandhuCO2 [Moles/Vol]26.8 mmol/BHxpovg50.0-32.0The [facility] Comment on above:Performed By: #### CMP, JENNIE, LIPA #### [facility] [address] [place] [address] Dr. Manuel SandhuCreatinine [Mass/Vol]0.62 mg/dLNormal0.55-1.02The [facility] HospitalComment on above:Performed By: #### CMP, JENNIE, LIPA #### [facility] [address] [place] [address] Dr. Yilan ChangEGFR-AF MACEDONIAN>60Normal>=60The [facility] HospitalComment on above:Performed By: #### CMP, JENNIE, LIPA #### [facility] [address] [address] [address] Manuel GonzalesGFR-NON AF MACEDONIAN>60Normal>=60The [facility] HospitalComment on above:Performed By: #### CMP, JENNIE, LIPA #### [facility] [address] [address] [address] Manuel SandhuGlucose [Mass/Vol]92 mg/tMBtuluc11-301Dyf [facility] Comment on above:Performed By: #### CMP, JENNIE, LIPA #### [facility] [address] [place] [address] Dr. Manuel SandhuPotassium [Moles/Vol]3.5 mmol/LNormal3.5-5.1[facility] Comment on above:Performed By: #### CMP, JENNIE, LIPA #### [facility] [address] [place] [address] Dr. Manuel SandhuSodium [Moles/Vol]140 mmol/PTnshnh911-533UhiSumma Health Comment on above:Performed By: #### CMP, EJNNIE, LIPA #### [facility] [address] [place] [address] Dr. Manuel SandhuUrea nitrogen [Mass/Vol]8.0 mg/dLNormal7.0-18.0The [facility] HospitalComment on above:Performed By: #### CMP, JENNIE, LIPA #### [facility] [address] [place] [address] Dr. Manuel Ramirez nitrogen/Creatinine [Mass ratio]12.9 mg/mgNormalThe [facility] HospitalComment on above:Performed By: #### CMP, JENNIE, LIPA #### [facility] [address] [place] [address] Dr. Manuel SandhuURINE MICROSCOPIC ONLYon [id number] SEENNormalNONE SEENThe [facility] HospitalComment on above:Performed By: #### UMICRO, ERUR #### [facility] [address] [address] [address] Manuel Hunter identified Cx Nom (U)NOT INDICATEDNoalThSt. Mary's Medical CenterCompine rest christian mental health services on above:Performed By: #### KATHRYN, ERUR #### [facility] [address] [address] [address] Manuel Yee SEENNormalNONE SEENSumma HealthCompine rest christian mental health services on above:Performed By: #### KATHRYN, ERUR #### [facility] [address] [address] [address] Manuel Schwartz LM Nom (Urine sed)NONE SEENNormalNONE SEENSumma HealthCompine rest christian mental health services on above:Performed By: #### KATHRYN, ERUR #### [facility] [address] [address] [address] Jackson ChangEpithelial cells LM Ql (Urine sed)FEWAbnormalNONE SEEN /RAREThe [facility] HospitalCompine rest [facility] mental health services on above:Performed By: #### KATHRYN, ERUR #### [facility] [address] [address] [address] Manuel GarrettbnormalNONE SEENCoshocton Regional Medical Center on above:Performed By: #### KATHRYN ERUR #### [facility] [address] [address] [address] Manuel SandhuSglzcQKU9-34Mzggswnk1-0Pds [facility] HospitalCompine rest [facility] services on above:Performed By: #### KATHRYN, ERUR #### [facility] [address] [address] [address] Manuel SandhuWBC2-5AbnormalNONE SEENCoshocton Regional Medical Center on above: Performed By: #### KATHRYN, ERUR #### [facility] [address] [address] [address] Manuel Carcamo Panel InformationOrdered By: Dorita Niño on 08-19-2022 CSF Xlufdfc88 mg/jG86-48GjmxiourzSelect Medical Specialty Hospital - Southeast OhioCSF Total Gfyxkpb17 mg/hJ75-94QnqryulkeSelect Medical Specialty Hospital - Southeast [place]CBC AUTO DIFFon [id number] #0.1 103/ulNormal0.0-0.1The [facility] HospitalComment on above:Performed By: #### KATHRYN ERUR #### [facility] [address] [address] [address] Manuel SandhuBasophils/100 WBC (Bld)0.4 %Normal0.2-2.0The [facility] Comment on above:Performed By: #### KATHRYN, ERUR #### [facility] [address] [address] [address] Manuel Anthony #0.2 103/ulNormal0.0-0.7The [facility] HospitalComment on above: Performed By: #### KATHRYN, ERUR #### [facility] [address] [place] [address] Dr. Manuel Gonzalesosinophils/100 WBC (Bld)1.8 %Normal0.9-7.0The [facility] Comment on above:Performed By: #### KATHRYN ERUR #### [facility] [address] [place] [address] Dr. Manuel Gonzalesrythrocyte distribution width (RBC) [Ratio]13.6 %Gavjsn52.0-15.0 [facility] HealthComment on above:Performed By: #### KATHRYN ERUR #### [facility] [address] [place] [address] Dr. Manuel SandhuHematocrit (Bld) [Volume fraction]35.8 %Critically low36.0-48.0 The [facility] HospitalComment on above:Performed By: #### KATHRYN, ERUR #### [facility] [address] [place] [address] Dr. Manuel SandhuHemoglobin (Bld) [Mass/Vol]12.2 g/kYUbpsvs62.0-16.0The [facility] HospitalComment on above:Performed By: #### KATHRYN ERUR #### [facility] [address] [place] [address] Dr. Manuel Fletcher #0.05 10e3/ulCritically high0.00-0.03The [facility] Comment on above:Performed By: #### KATHRYN ERUR #### [facility] [address] [place] [address] Dr. Manuel Fletcher %0.4 %Normal0.0-0.5The [facility] HospitalComment on above: Performed By: #### KATHRYN, ERUR #### [facility] [address] [address] [address] Manuel Mac #2.0 103/ulNormal1.2-3.8The [facility] HospitalComment on above:Performed By: #### KATHRYN, ERUR #### [facility] [address] [place] [address] Dr. Manuel Poolehocytes/100 WBC (Bld)18.1 %Critically low20.5-60.0The [facility] HospitalComment on above:Performed By: #### KATHRYN ERUR #### [facility] [address] [place] [address] Dr. Manuel WilhelmUAL DIFF REQNONormalThe [facility] HospitalComment on above: Performed By: #### KATHRYN, ERUR #### [facility] [address] [place] [address] Dr. Manuel Hu (RBC) [Entitic mass]32.0 anDtzzhf33.7-34.0The [facility] HospitalComment on above:Performed By: #### KATHRYN, ERUR #### [facility] [address] [place] [address] Dr. Manuel Hu (RBC) [Mass/Vol]34.1 g/eDCswzas07.9-35.2The [facility] HospitalComment on above:Performed By: #### KATHRYN, ERUR #### [facility] [address] [place] [address] Dr. Manuel Hu (RBC) [Entitic vol]94.0 pTSpkogx04.0-99.0The [facility] HospitalComment on above:Performed By: #### TAMARA PERALTAR #### [facility] [address] [place] [address] Dr. Manuel Keith #0.7 103/ulNormal0.3-0.8The [facility] HospitalComment on above:Performed By: #### KATHRYN ERUR #### [facility] [address] [place] [address] Dr. Manuel Suarezocytes/100 WBC (Bld)5.8 %Normal1.7-12.0The [facility] Comment on above:Performed By: #### TAMARA PERALTAR #### [facility] [address] [place] [address] Dr. Manuel Hurtado #8.2 103/ulCritically high1.4-6.5The [facility] Comment on above:Performed By: #### TAMARA PERALTAR #### [facility] [address] [place] [address] Dr. Manuel Rebollarutrophils/100 WBC (Bld)73.5 %Opnrce83.0-75.0The [facility] HospitalComment on above:Performed By: #### TAMARA PERALTAR #### [facility] [address] [place] [address] Dr. Manuel Del Toro mean volume (Bld) [Entitic vol]11.3 fLNormal9.5-13.5The [facility] HospitalComment on above:Performed By: #### TAMARA PERALTAR #### [facility] [address] [place] [address] Dr. Manuel SandhuPLT284 103/rwLxicrr035-103Fuu [facility] HospitalComment on above: Performed By: #### TAMARA PERALTAR #### [facility] [address] [place] [address] Dr. Manuel SandhuRBC3.81 106/ulCritically low4.20-5.40The [facility] HospitalComment on above:Performed By: #### TAMARA PERALTAR #### [facility] [address] [place] [address] Dr. Manuel SandhuWBC11.2 103/ulCritically high4.0-11.0The [facility] HospitalComment on above:Performed By: #### TAMARA PERALTAR #### [facility] [address] [place] [address] Dr. Manuel Hanson-DIMERon 56-18-4862I-DIMER0.34 mg/L FEUNormal<=0.59The [facility] HospitalComment on above:Performed By: #### TAMARA PERALTAR #### [facility] [address] [place] [address] Dr. Manuel NunezDIMER COMMENTSSEE Adena Fayette Medical CenterComment on above:Result Comment: Increases in D-Dimer concentration [...] hospitalization. Performed By: #### AVNI PERALTA #### [facility] [address] [place] [address] Dr. Manuel SandhuPROF CHEM 8 (BAS METB)on 61-54-2653Zbayb gap [Moles/Vol]10.6 mmol/LNormalThe [facility] HospitalComment on above:Performed By: #### INFLUAB #### [facility] [address] [place] [address] Dr. Manuel SandhuCalcium [Mass/Vol]9.2 mg/dLNormal8.5-10.1The [facility] Comment on above:Performed By: #### INFLUAB #### [facility] [address] [place] [address] Dr. Manuel SandhuChloride [Moles/Vol]103 mmol/DAdwnfs95-909UxvSumma Health Comment on above:Performed By: #### INFLUAB #### [facility] [address] [address] [address] Manuel SandhuCO2 [Moles/Vol]28.4 mmol/YNcrmfw77.0-32.0The [facility] Comment on above:Performed By: #### INFLUAB #### [facility] [address] [address] [address] Manuel SandhuCreatinine [Mass/Vol]0.61 mg/dLNormal0.55-1.02The [facility] HospitalComment on above:Performed By: #### INFLUAB #### [facility] [address] [address] [address] Jackson ChangEGFR-AF MACEDONIAN>60Normal>=60The [facility] HospitalComment on above:Performed By: #### INFLUAB #### [facility] [address] [address] [address] Manuel GonzalesGFR-NON AF MACEDONIAN>60Normal>=60The [facility] HospitalComment on above:Performed By: #### INFLUAB #### [facility] [address] [address] [address] Manuel SandhuGlucose [Mass/Vol]90 mg/mLPttvcw26-311OxnSumma Health Comment on above:Performed By: #### INFLUAB #### [facility] [address] [place] [address] Dr. Manuel SandhuPotassium [Moles/Vol]4.0 mmol/LNormal3.5-5.1The [facility] Comment on above:Performed By: #### INFLUAB #### [facility] [address] [address] [address] Manuel SandhuSodium [Moles/Vol]138 mmol/LWyxedd269-320Krh [facility] Comment on above:Performed By: #### INFLUAB #### [facility] [address] [address] [address] Manuel SandhuUrea nitrogen [Mass/Vol]16.0 mg/dLNormal7.0-18.0The [facility] HospitalComment on above:Performed By: #### INFLUAB #### [facility] [address] [address] [address] Manuel SandhuUrea nitrogen/Creatinine [Mass ratio]26.2 mg/mgToledo HospitalComment on above:Performed By: #### INFLUAB #### [facility] [address] [address] [address] Manuel SandhuXR CHEST 1 Von 63-86-3752YJ CHEST 1 VEXAM: XR CHEST 1 V HISTORY: CHEST PAIN, UNSPECIFIED. Shortness of breath. COMPARISON: Comparison made to chest x-ray dated 07/19/2022. TECHNIQUE: Single AP portable chest x-ray. FINDINGS: The lungs are clear bilaterally and the cardiomediastinal silhouette is within normal limits. IMPRESSION: 1. No acute cardiopulmonary disease. Electronically authenticated by: YOLI FRANKS Date: 2022-08-16 14:16Toledo HospitalAlbumin [Mass/volume] in Serum or PlasmaOrdered By: Sangeetha Peña on 29-05-8375Ioidjoj [Mass/Vol]3.2 g/dL3.2-5.5FLima Memorial HospitalBasophils Auto (Bld) [#/Vol]Ordered By: Sangeetha Peña on 08-12-2022 Basophils (Bld) [#/Vol]0.1 10*3/uL0.0-0.2FLima Memorial Hospital Basophils/100 WBC Auto (Bld)Ordered By: Sangeetha Peña on 73-03-3209Oujmixipv/100 WBC (Bld)0.7 %.[facility] OhioC reactive protein [Mass/volume] in Serum or PlasmaOrdered By: Sangeetha Peña on 69-49-3532BVE [Mass/Vol]0.5 mg/dL0.0-1.0[facility] OhioCreatinine and Glomerular filtration rate.predicted panel (S/P/Bld)Ordered By: Sangeetha Peña on 42-77-6154Trkwblytge [Mass/Vol]0.65 mg/dL0.44-1.03[facility] OhioEosinophils Auto (Bld) [#/Vol]Ordered By: Sangeetha Peña on 08-12-2022 Eosinophils (Bld) [#/Vol]0.4 10*3/uL0.0-0.45[facility] Eosinophils/100 WBC Auto (Bld)Ordered By: Sangeetha Peña on 08-12-2022 Eosinophils/100 WBC (Bld)5.2 %.[facility] OhioErythrocyte distribution width Auto (RBC) [Ratio]Ordered By: Sangeetha Peña on 08-12-2022 Erythrocyte distribution width (RBC) [Ratio]14.4 %11.9-15.3FLima Memorial HospitalErythrocyte sedimentation rate by Photometric methodOrdered By: Dorita Niño on 17-98-0551QBV Photometric method (Bld) [Velocity]3 mm/hr 0-19[facility] OhioEstimated glomerular filtration rate (GFR) non- AmericanOrdered By: Sangeetha Peña on 17-93-3376WYM/1.73 sq M.predicted among non-blacks MDRD (S/P/Bld) [Vol rate/Area]> 60 mL/MinSelect Medical Specialty Hospital - Southeast OhioFolate [Mass/volume] in Serum or PlasmaOrdered By: Lizzeth Malave on 03-45-3786Niyzdb [Mass/Vol]15.3 ng/mL>5.9[facility] OhioComment on above:Folate reference range: >5.9 ng/mlThe WHO technical consultation on folate and vitamin u42olwspwytkqce has determined that folate concentrations lessthan 4 ng/ml are considered deficient.Globulin Calc (S) [Mass/Vol]Ordered By: Sangeetha Peña on 32-07-7562Rlxqtrgk (S) [Mass/Vol]2.4 g/dLSelect Medical Specialty Hospital - Southeast OhioHCG ( test) IA.rapid Ql (U)Ordered By: Lizzeth Malave on 82-86-9277FQG ( test) Ql (U)NegativeSelect Medical Specialty Hospital - Southeast OhioHematocrit Auto (Bld) [Volume fraction]Ordered By: Sangeetha Peña on 15-47-2052Hijblszgnm (Bld) [Volume fraction]34.6 %34.0-46.4FLima Memorial HospitalHemoglobin [Mass/volume] in BloodOrdered By: Sangeetha Peña on 66-06-6324Qmgssvpmey (Bld) [Mass/Vol]11.3 g/dL11.8-15.4FLima Memorial HospitalLaboratory - Chemistry and Chemistry - challengeOrdered By: Lizzeth Malave on 64-78-0605Prsphptok (Vitamin B12) [Mass/Vol]610 pg/mL 180-914[facility] OhioMagnesium [Mass/Vol]1.9 mg/dL1.6-2.6 [facility] OhioLaboratory - Hematology and Cell countsOrdered By: Sangeetha Peña on 51-76-3553Fdgqgjmct RBC/100 WBC (Bld) [Ratio]0.1 %0-0.5 [facility] OhioLeukocytes [#/volume] in Blood by Automated countOrdered By: Sangeetha Peña on 36-15-9709BMS (Bld) [#/Vol]8.3 10*3/uL4.5-11.0 [facility] OhioLymphocytes Auto (Bld) [#/Vol]Ordered By: Sangeetha Peña on 32-05-7937Ircyfgppudv (Bld) [#/Vol]2.3 10*3/uL1.00-4.8[facility] OhioLymphocytes/100 WBC Auto (Bld)Ordered By: Snageetha Peña on 18-55-0064Ntprwyzrokw/100 WBC (Bld)27.4 %.[facility] MCH Auto (RBC) [Entitic mass]Ordered By: Sangeetha Peña on 99-82-8064QHA (RBC) [Entitic mass]32.0 pg24.7-34.3FLima Memorial HospitalMCHC Auto (RBC) [Mass/Vol]Ordered By: Sangeetha Peña on 37-72-2132BEUF (RBC) [Mass/Vol]32.8 g/dL 32.0-35.0[facility] OhioMCV Auto (RBC) [Entitic vol]Ordered By: Sangeetha Peña on 14-53-2368IFQ (RBC) [Entitic vol]97.7 fG07-600NqyyxejocSelect Medical Specialty Hospital - Southeast OhioMonocytes Auto (Bld) [#/Vol]Ordered By: Sangeetha Peña on 86-48-1712Cmxdolrxl (Bld) [#/Vol]0.7 10*3/uL0.0-0.8[facility] OhioMonocytes/100 WBC Auto (Bld)Ordered By: Sangeetha Peña on 08-12-2022 Monocytes/100 WBC (Bld)8.7 %.[facility] OhioNeutrophils Auto (Bld) [#/Vol]Ordered By: Sangeetha Peña on 45-82-4897Bkcgtmijmpd (Bld) [#/Vol]4.8 10*3/uL1.8-7.7FLima Memorial HospitalNeutrophils/100 WBC Auto (Bld) Ordered By: Sangeetha Peña on 53-14-5419Pngcpjengdf/100 WBC (Bld)58.0 %.[facility] OhioNo Panel InformationOrdered By: Sangeetha Peña on 82-19-9353Azabbygjg GFR ()> 60 mL/MinSelect Medical Specialty Hospital - Southeast OhioComment on above:GFR estimated reference range: According to KDOQI guidelines, <60 ml/min/1.73m2 is sufficient todiagnose a patient with chronic kidney disease.Pharmacy Creatinine Clearance (Zmyj491.31[facility] Southeast OhioPlatelet mean volume Auto (Bld) [Entitic vol]Ordered By: Sangeetha Peña on 24-51-3519Zyhechtm mean volume (Bld) [Entitic vol]10.2 fL6.3-10.7 [facility] OhioPlatelets Auto (Bld) [#/Vol]Ordered By: Sangeetha Peña on 01-02-8304Kskfwowew (Bld) [#/Vol]263 10*3/cM228-456ZurixchmvSelect Medical Specialty Hospital - Southeast OhioProtein [Mass/volume] in Serum or PlasmaOrdered By: Sangeetha Peña on 21-30-7508Smnjggs [Mass/Vol]5.6 g/dL6.1-7.9[facility] RBC Auto (Bld) [#/Vol]Ordered By: Sangeetha Peña on 70-32-6293ZNQ (Bld) [#/Vol] 3.54 10*6/uL3.60-5.00[facility] Hospitalerum or plasma alanine aminotransferase measurement without P-5'-P (enzymatic activiOrdered By: Sangeetha Peña on 19-16-2652SRI No additional P-5'-P [Catalytic activity/Vol]22 U/L10-60 [facility] Hospitalerum or plasma albumin/globulin mass ratio Ordered By: Sangeetha Peña on 23-77-2208Mtdaltm/Globulin [Mass ratio]1.3 {ratio} [facility] Hospitalerum or plasma alkaline phosphatase measurement (enzymatic activity/volume)Ordered By: Sangeetha Peña on 08-12-2022 ALP [Catalytic activity/Vol]54 U/N91-50NujgeetzxGreen Cross Hospitalerum or plasma anion gap determinationOrdered By: Sangeetha Peña on 80-82-9000Wtugg gap [Moles/Vol]10.6 mmol/L6.0-15.0[facility] Hospitalerum or plasma aspartate aminotransferase measurement (enzymatic activity/volume)Ordered By: Sangeetha Peña on 06-74-1615ZBT [Catalytic activity/Vol]20 U/N17-36JqfbgzwezGreen Cross Hospitalerum or plasma calcium measurement (mass/volume)Ordered By: Sangeetha Peña on 06-01-9498Seqlkmc [Mass/Vol]8.8 mg/dL8.2-10.2FKettering Memorial Hospitalerum or plasma chloride measurement (moles/volume) Ordered By: Sangeetha Peña on 39-86-2519Jqfhoyts [Moles/Vol]105 mmol/L95-114 [facility] Hospitalerum or plasma glucose measurement (mass/volume)Ordered By: Sangeetha Peña on 98-15-2544Chhotje [Mass/Vol]85 mg/dL 70-100[facility] OhioComment on above:ADA recommended reference rangeRandom Glucose Reference Range is dependent on time and content of last meal. Glucose of more than 200 mg/dL in a nonstressed, ambulatory subject supports the diagnosisof Diabetes Mellitus.Serum or plasma potassium measurement (moles/volume)Ordered By: Sangeetha Peña on 01-55-6545Zaepowtle [Moles/Vol]4.2 mmol/L3.5-5.1FKettering Memorial Hospitalerum or plasma sodium measurement (moles/volume)Ordered By: Sangeetha Peña on 39-65-1346Zohsbf [Moles/Vol]140 mmol/W966-941NgtdhickvGreen Cross Hospitalerum or plasma total bilirubin measurement (mass/volume)Ordered By: Sangeetha Peña on 08-12-2022 Bilirubin [Mass/Vol]0.5 mg/dL0.3-1.2FKettering Memorial Hospitalerum or plasma total carbon dioxide measurement (moles/volume)Ordered By: Sangeetha Peña on 04-93-9992TG2 [Moles/Vol]28.6 mmol/L22.0-30.0[facility] Hospitalerum or plasma urea nitrogen measurement (mass/volume)Ordered By: Sangeetha Peña on 77-93-2360Zdpd nitrogen [Mass/Vol]7 mg/dL9-23[facility] OhioTSH DL <= 0.005 mIU/L QnOrdered By: Lizzeth Malave on 08-12-2022 TSH Qn1.79 m[IU]/L0.45-5.33[facility] OhioTroponin I.cardiac [Mass/volume] in Serum or Plasma by High sensitivity methodOrdered By: Lizzeth Malave on 27-50-2784Xgyfdfyq I.cardiac High sensitivity method [Mass/Vol]< 3 pg/mL0-15[facility] OhioCBC AUTO DIFFon 59-78-6468MARH #0.1 103/ulNormal0.0-0.1The [facility] HospitalComment on above:Performed By: #### RACHEL JENNIE, LIPA #### [facility] [address] [address] [address] Manuel Dysonphils/100 WBC (Bld)0.5 %Normal0.2-2.0The [facility] Comment on above:Performed By: #### RACHEL JENNIE, LIPA #### [facility] [address] [address] [address] Manuel Anthony #0.4 103/ulNormal0.0-0.7The [facility] HospitalComment on above: Performed By: #### RACHEL JENNIE, LIPA #### [facility] [address] [place] [address] Dr. Manuel Gonzalesosinophils/100 WBC (Bld)2.4 %Normal0.9-7.0The [facility] Comment on above:Performed By: #### CMP, JENNIE, LIPA #### [facility] [address] [place] [address] Dr. Manuel Gonzalesrythrocyte distribution width (RBC) [Ratio]14.1 %Cpnamb39.0-15.0 The [facility] HospitalComment on above:Performed By: #### CMP, JENNIE, LIPA #### [facility] [address] [place] [address] Dr. Manuel SandhuHematocrit (Bld) [Volume fraction]39.4 %Mhopkl37.0-48.0The [facility] HospitalComment on above:Performed By: #### CMP, JENNIE, LIPA #### [facility] [address] [place] [address] Dr. Manuel SandhuHemoglobin (Bld) [Mass/Vol]13.3 g/yTXyufvp84.0-16.0The [facility] HospitalComment on above:Performed By: #### CMP, JENNIE, LIPA #### [facility] [address] [place] [address] Dr. Manuel Fletcher #0.07 10e3/ulCritically high0.00-0.03The [facility] Comment on above:Performed By: #### CMP, JENNIE, LIPA #### [facility] [address] [place] [address] Dr. Manuel Fletcher %0.5 %Normal0.0-0.5The [facility] HospitalComment on above: Performed By: #### CMP, JENNIE, LIPA #### [facility] [address] [place] [address] Dr. Manuel Mac #3.6 103/ulNormal1.2-3.8The [facility] HospitalComment on above:Performed By: #### CMP, JENNIE, LIPA #### [facility] [address] [address] [address] Manuel Delgadomphocytes/100 WBC (Bld)23.5 %Txkkps30.5-60.0The [facility] HospitalComment on above:Performed By: #### CMP, JENNIE, LIPA #### [facility] [address] [address] [address] Manuel Moralez DIFF REQNONormalThe [facility] HospitalComment on above: Performed By: #### CMP, JENNIE, LIPA #### [facility] [address] [place] [address] Dr. Manuel uH (RBC) [Entitic mass]32.1 jdSxavwr45.7-34.0The [facility] HospitalComment on above:Performed By: #### CMP, JENNIE, LIPA #### [facility] [address] [place] [address] Dr. Manuel Hu (RBC) [Mass/Vol]33.8 g/tVZdvcqp18.9-35.2The [facility] HospitalComment on above:Performed By: #### CMP, JENNIE, LIPA #### [facility] [address] [place] [address] Dr. Manuel Chavez (RBC) [Entitic vol]95.2 iQTaebui55.0-99.0The Kindred Healthcarement on above:Performed By: #### CMP, JENNIE, LIPA #### [facility] [address] [place] [address] Dr. Manuel Keith #0.9 103/ulCritically high0.3-0.8The [facility] Comment on above:Performed By: #### CMP, JENNIE, LIPA #### [facility] [address] [place] [address] Dr. Manuel Suarezocytes/100 WBC (Bld)5.8 %Normal1.7-12.0[facility] Comment on above:Performed By: #### CMP, JENNIE, LIPA #### [facility] [address] [place] [address] Dr. Manuel Hurtado #10.3 103/ulCritically high1.4-6.5The [facility] Comment on above:Performed By: #### CMP, JENNIE, LIPA #### [facility] [address] [address] [address] Manuel Rebollarutrophils/100 WBC (Bld)67.3 %Yaibii40.0-75.0The [facility] HospitalComment on above:Performed By: #### CMP, JENNIE, LIPA #### [facility] [address] [address] [address] Manuel SandhuPlatelet mean volume (Bld) [Entitic vol]11.4 fLNormal9.5-13.5The [facility] HospitalComment on above:Performed By: #### CMP, JENNIE, LIPA #### [facility] [address] [place] [address] Dr. Manuel SandhuPLT364 103/vsNgpevs712-734Iqs Saratoga HospitalComment on above: Performed By: #### CMP, JENNIE, LIPA #### [facility] [address] [place] [address] Dr. Manuel SandhuRBC4.14 106/ulCritically low4.20-5.40The [facility] HospitalComment on above:Performed By: #### CMP, JENNIE, LIPA #### [facility] [address] [place] [address] Dr. Manuel SandhuWBC15.3 103/ulCritically high4.0-11.0The [facility] HospitalComment on above:Performed By: #### CMP, JENNIE, LIPA #### [facility] [address] [place] [address] Dr. Manuel SandhuCT STROKE HEAD WOon 55-73-0546AN STROKE HEAD WOINDICATION: 31 years old; Female. [...] Electronically authenticated by: YOLI MCKEON Date: 2022-08-11 15:21[facility] URINE PROFILEon 78-42-6233Vdbjsaxmq Ql (U)NegativeNormal NEGATIVESumma HealthComment on above:Performed By: #### UMELMERRO, ERUR #### [facility] [address] [place] [address] Dr. Manuel SandhuClarity (U)CLEARNormalCLEARSumma HealthComment on above: Performed By: #### UMICRO, ERUR #### [facility] [address] [place] [address] Dr. Manuel Gautam (U)LT. YELLOWNormalYELLOWSumma HealthComment on above:Performed By: #### UMICRO, ERUR #### [facility] [address] [place] [address] Dr. Manuel Hernandez micrscopic examination will be performed if indicated. NormalSumma HealthComment on above:Performed By: #### UMICRO, ERUR #### [facility] [address] [place] [address] Dr. Manuel SandhuGlucose Ql (U)NegativeNormalNEGATIVESumma HealthComment on above:Performed By: #### UMICRO, ERUR #### [facility] [address] [place] [address] Dr. Manuel SandhuHemoglobin Ql (U)NegativeNormalNEGATIVESumma Health Comment on above:Performed By: #### KATHRYN ERUR #### [facility] [address] [address] [address] Manuel Olivares Ql (U)NegativeNormalNEGATIVEThe [facility] HospitalComment on above:Performed By: #### KATHRYN ERUR #### [facility] [address] [place] [address] Dr. Manuel SandhuLEUKOCYTESNegativeNormalNEGATIVEThe [facility] HospitalComment on above:Performed By: #### KATHRYN ERUR #### [facility] [address] [place] [address] Dr. Manuel Nietotrfe Ql (U)NegativeNormalNEGATIVEThe [facility] HospitalComment on above:Performed By: #### KATHRYN ERUR #### [facility] [address] [place] [address] Dr. Manuel SandhupH (U)7.0 [pH]Normal5-9The [facility] HospitalComment on above: Performed By: #### KATHRYN ERUR #### [facility] [address] [place] [address] Dr. Manuel SandhuSPEC GRAVITY<=1.636Nnwoqymy6.005-<=1.025[facility] Comment on above:Performed By: #### KATHRYN ERUR #### [facility] [address] [place] [address] Dr. Manuel Tinsley PROTEINNegativeNormalNEGATIVE/ TRACEThe [facility] Comment on above:Performed By: #### KATHRYN ERUR #### [facility] [address] [place] [address] Dr. Manuel Robb MICRO INDNOT INDICATEDNormalThe [facility] HospitalComment on above:Performed By: #### KATHRYN ERUR #### [facility] [address] [place] [address] Dr. Manuel Rickbilinogen Qn (U)0.2 {Lucila'U}/dLNormal0.2 - 1.0The [facility] HospitalComment on above:Performed By: #### KATHRYN ERUR #### [facility] [address] [place] [address] Dr. Manuel SandhuLACTATE/LACTIC ACIDon [id number] [Moles/Vol]1.5 mmol/L Normal0.4-1.9The [facility] HospitalComment on above:Performed By: #### INFLUAB #### [facility] [address] [place] [address] Dr. Manuel SandhuLIPASEon 50-66-7819Nndezg [Catalytic activity/Vol]84.0 U/LNormal 73.0-393.0The [facility] HospitalComment on above:Performed By: #### CMP, JENNIE, LIPA #### [facility] [address] [place] [address] Dr. Manuel SandhuPREGNANCY URon [id number], QUALNegativeNormalNEGATIVEThe [facility] HospitalComment on above:Performed By: #### KATHRYN ERUR #### [facility] [address] [place] [address] Dr. Manuel SandhuPROF 14(COMP METB)on 01-51-9310Tptzbnu [Mass/Vol]4.3 g/dLNormal 3.4-5.0The [facility] HospitalComment on above:Performed By: #### CMP, JENNIE, LIPA #### [facility] [address] [place] [address] Dr. Manuel SandhuAlbumin/Globulin [Mass ratio]1.1 {ratio}NormalThe [facility] HospitalComment on above:Performed By: #### CMP, JENNIE, LIPA #### [facility] [address] [place] [address] Dr. Manuel SaavedraP [Catalytic activity/Vol]87 U/FHgrwdu34-075Kgk [facility] HospitalComment on above:Performed By: #### CMP, JENNIE, LIPA #### [facility] [address] [place] [address] Dr. Manuel Montana [Catalytic activity/Vol]32 U/RWesrgk70-51Jul [facility] HospitalComment on above:Performed By: #### CMP, JENNIE, LIPA #### [facility] [address] [address] [address] Manuel SandhuAnion gap [Moles/Vol]12.7 mmol/LNormalThe [facility] Comment on above:Performed By: #### CMP, JENNIE, LIPA #### [facility] [address] [address] [address] Manuel SandhuAST [Catalytic activity/Vol]24 U/IJuqzut45-25Fvh [facility] HospitalComment on above:Performed By: #### CMP, JENNIE, LIPA #### [facility] [address] [address] [address] Manuel SandhuBilirubin [Mass/Vol]0.3 mg/dLNormal0.2-1.0[facility] Comment on above:Performed By: #### CMP, JENNIE, LIPA #### [facility] [address] [place] [address] Dr. Manuel SandhuCalcium [Mass/Vol]9.4 mg/dLNormal8.5-10.1[facility] Comment on above:Performed By: #### CMP, JENNIE, LIPA #### [facility] [address] [place] [address] Dr. Manuel SandhuChloride [Moles/Vol]100 mmol/HFgjozx52-351PfdSumma Health Comment on above:Performed By: #### CMP, JENNIE, LIPA #### [facility] [address] [place] [address] Dr. Manuel SandhuCO2 [Moles/Vol]27.7 mmol/ILkrmnd48.0-32.0[facility] Comment on above:Performed By: #### CMP, JENNIE, LIPA #### [facility] [address] [place] [address] Dr. Manuel SandhuCreatinine [Mass/Vol]0.71 mg/dLNormal0.55-1.02The [facility] HospitalComment on above:Performed By: #### CMP, JENNIE, LIPA #### [facility] [address] [address] [address] Manuel GonzalesGFR-AF MACEDONIAN>60Normal>=60The Kindred Healthcarement on above:Performed By: #### CMP, JENNIE, LIPA #### [facility] [address] [address] [address] Manuel GonzalesGFR-NON AF MACEDONIAN>60Normal>=60The [facility] HospitalComment on above:Performed By: #### CMP JENNIE, LIPA #### [facility] [address] [address] [address] Manuel SandhuGlobulin (S) [Mass/Vol]3.9 g/dLNormalThe [facility] HospitalComment on above:Performed By: #### RACHEL JENNIE, LIPA #### [facility] [address] [place] [address] Dr. Manuel SandhuGlucose [Mass/Vol]109 mg/dLCritically qrkr82-029Zsy [facility] HospitalComment on above:Performed By: #### RACHEL JENNIE, LIPA #### [facility] [address] [place] [address] Dr. Manuel SandhuPotassium [Moles/Vol]3.4 mmol/LCritically low3.5-5.1The [facility] on above:Performed By: #### RACHEL, JENNIE, LIPA #### [facility] [address] [place] [address] Dr. Manuel SandhuProtein [Mass/Vol]8.2 g/dLNormal6.4-8.2[facility] Comment on above:Performed By: #### CMP, JENNIE, LIPA #### [facility] [address] [place] [address] Dr. Manuel SandhuSodium [Moles/Vol]137 mmol/PSpuzbi680-651Jri [facility] Comment on above:Performed By: #### CMP, JENNIE, LIPA #### [facility] [address] [place] [address] Dr. Manuel SandhuUrea nitrogen [Mass/Vol]10.0 mg/dLNormal7.0-18.0The [facility] HospitalComment on above:Performed By: #### CMP, JENNIE, LIPA #### [facility] [address] [place] [address] Dr. Manuel Ramirez nitrogen/Creatinine [Mass ratio]14.1 mg/mgNoFlower HospitalCompine rest christian mental health services on above:Performed By: #### CMP, JENNIE, LIPA #### [facility] [address] [place] [address] Dr. Manuel SandhuPROTIMEon [id number] Coag (PPP) [Relative time]0.96 {INR} NormalCoshocton Regional Medical Center on above:Performed By: #### INFLUAB #### [facility] [address] [place] [address] Dr. Manuel Esteves GUIDELINESSEE [facility] CenterComment on above:Result Comment: DESIRED INR: 2.0 - 3.0 CONDITIONS NOT LISTED BELOW 2.5 - 3.5 FOR PROSTHETIC HEART VALVE REPLACEMENT 2.5 - 3.5 RECURRENT THROMBOSIS Performed By: #### INFLUAB #### [facility] [address] [place] [address] Dr. Manuel SandhuPT Coag (PPP) [Time]10.4 sNormal9.0-11.6The [facility] Comment on above:Performed By: #### INFLUAB #### [facility] [address] [place] [address] Dr. Manuel DoradoTon [id number] Coag (Bld) [Time]25.3 cLujthy80.3-36.2Summa HealthComment on above:Performed By: #### INFLUAB #### [facility] [address] [place] [address] Dr. Manuel Juarez, HIGH SENSITIVITYon 33-06-7253AGLYWD5.5 pg/mLNormal 4.0-51.3TSelect Medical Specialty [facility] [place] on above:Result Comment: CUT-OFF POINTS HAVE BEEN ESTABLISHED BASED ON THE FOURTH UNIVERSAL DEFINITIONS OF MYOCARDIAL INFARCTION. THE UPPER REFERENCE LIMIT (URL) OF TROPONIN, DEFINED THE 99TH PERCENTILE OF cTnI DISTRIBUTION IN A REFERENCE POPULATION, HAS BEEN CONFIRMED THE DECISION THRESHOLD FOR CT DIAGNOSIS.Performed By: #### CMP, JENNIE, LIPA #### [facility] [address] [place], [place] [address] Dr. Manuel Caba 67-69-4460QEI5.778 uIU/mLNormal0.358-3.740The [facility] HospitalComment on above:Performed By: #### CMP, JENNIE, LIPA #### [facility] [address] [place], [place] [address] Dr. Manuel SandhuCHEMISTRYOrdered By: SYSTEM SYSTEM on 71-45-8521Moewz gap [Moles/Vol]11 mmol/LNormal6 - 16 mEq/LFTMC RemisolCalcium [Mass/Vol]9.0 mg/dL Normal8.9 - 11.1 mg/dLFTMC RemisolChloride [Moles/Vol]105 mmol/YJjpvrn017 - 111 mmol/LFTMC RemisolCO2 [Moles/Vol]25 mmol/PDjgvai38 - 31 mmol/LFTMC Remisol Creatinine [Mass/Vol]0.6 mg/dLNormal0.5 - 1.3 mg/dLFTMC RemisolGFR/1.73 sq M.predicted among blacks MDRD (S/P/Bld) [Vol rate/Area]mL/min/1.73 u1Gtziqi >=59mL/min/1.73 m2FT Chem SGFR/1.73 sq M.predicted among non-blacks MDRD (S/P/Bld) [Vol rate/Area]mL/min/1.73 l5Tuuymh>=59mL/min/1.73 m2[facility] [place] Chem S Glucose [Mass/Vol]84 mg/hNVlysqq25 - 199 mg/dLFTMC RemisolPotassium [Moles/Vol] 4.2 mmol/LNormal3.5 - 5.3 mmol/LFTMC RemisolSodium [Moles/Vol]137 mmol/LNormal 135 - 145 mmol/LFTMC RemisolUrea nitrogen [Mass/Vol]13 mg/dLNormal5 - 21 mg/dL [facility] RemisolUrea nitrogen/Creatinine [Mass ratio]22 mg/uoZlya46 - 20[facility] Remisol CHEMISTRYOrdered By: Lab ROPUser on 71-60-7985Cmwvlbx [Mass/Vol]98 mg/kCTjrdmv19 - 99 mg/dLFT POC SubsectionPOC Device [id number] Interpretation CodeFT POC SubsectionPOC User [id number] Interpretation CodeINTEGRIS [facility] [place] POC SubsectionPOC [email or web address] MOCKFERInvalid Interpretation CodeINTEGRIS [facility] [place] POC SubsectionHEMATOLOGYOrdered By: SYSTEM SYSTEM on 75-14-9444Ytglotbon/100 WBC (Bld)0.5 %Normal0.0 - 2.0 %[facility] HemeAutoSSBasophils/Leukocytes Auto (Bld) [Pure # fraction]0.1 E9/LNormal0.0 - 0.2 E9/LFTMC HemeAutoSSEosinophils/100 WBC (Bld) 2.8 %Normal0.0 - 8.0 %[facility] HemeAutoSSEosinophils/Leukocytes Auto (Bld) [Pure # fraction]0.3 E9/LNormal0.0 - 0.5 E9/LFTMC HemeAutoSSLymphocytes/100 WBC (Bld) 15.7 %Phalis51.0 - 50.0 %[facility] HemeAutoSSLymphocytes/Leukocytes Auto (Bld) [Pure # fraction]1.7 E9/LNormal1.0 - 4.0 E9/LFTMC HemeAutoSSMonocytes/100 WBC (Bld)6.2 %Normal4.0 - 14.0 %[facility] HemeAutoSSMonocytes/Leukocytes Auto (Bld) [Pure # fraction]0.7 E9/LNormal0.2 - 1.0 E9/LFTMC HemeAutoSSNeutrophils/100 WBC (Bld) 74.8 %Cvlinn37.0 - 75.0 %[facility] HemeAutoSSNeutrophils/Leukocytes Auto (Bld) [Pure # fraction]8.3 E9/LHigh2.0 - 7.5 E9/LFTMC HemeAutoSSHEMATOLOGYOrdered By: Shasta Eller on 37-84-7031Tugcolcfnah distribution width (RBC) [Ratio]14.1 %Normal 10.9 - 14.2 %[facility] HemeAutoSSHematocrit (Bld) [Volume fraction]34.9 %Kgxwkb71.0 - 46.0 %[facility] [place] HemeAutoSSHemoglobin (Bld) [Mass/Vol]11.9 g/dLLow12.0 - 16.0 gm/dL [facility] HemeAutoSSMCH (RBC) [Entitic mass]32.2 oaCxblep92.0 - 34.0 pgFTMC HemeAutoSSMCHC (RBC) [Mass/Vol]34.1 g/zLJckzbv66.4 - 36.0 gm/dLFTMC HemeAutoSS MCV (RBC) [Entitic vol]94.5 mSUckdad16.0 - 100.0 fLFTMC HemeAutoSSPlatelet mean volume (Bld) [Entitic vol]9.0 fLNormal6.4 - 10.8 fLFTMC HemeAutoSSPlatelets (Bld) [#/Vol]288.0 E9/OMeynqp694.0 - 500.0 E9/LFTMC HemeAutoSSRBC (Bld) [#/Vol] 3.7 E12/LLow4.3 - 5.9 E12/LFTMC HemeAutoSSWBC corrected for nucl RBC Auto (Bld) [#/Vol]11.1 E9/LHigh4.0 - 11.0 E9/LFTMC HemeAutoSSMICRO OTHER TESTSOrdered By: Kimberli Briseno on 52-51-2143Smhwbgrtin A AgNegative (08/08/22 9:59 AM)NormalNegativeINTE[facility] [place] Man SeroInfluenzae B AgNegative (08/08/22 9:59 AM)NormalNegativeINTEGR[facility] [place] Man SeroRapid COV Int NEG CtlPass (08/08/22 9:59 AM)NormalINTEGRIS [facility] [place] Man SeroRapid COV Int POS CtlPass (08/08/22 9:59 AM)NormalINTEGRIS [facility] [place] Man SeroSARS-CoV+SARS-CoV-2 (COVID-19) Ag IA.rapid Ql (Resp)Not Detected (08/08/22 9:59 AM)NormalNot DetectedINTEGRIS [facility] [place] Man SeroSEROLOGYOrdered By: Kimberli Briseno on 27-74-3004Trxt hCG QlNegative (08/08/22 9:51 AM)NormalINTEGRIS [facility] [place] Man SeroURINALYSISOrdered By: Kimberli Briseno on 25-65-3155Xjljhtuzf Ql (U)Negative (08/08/22 10:01 AM)NormalNegativeINTEGR[facility] [place] UA Auto SSClarity (U)Clear (08/08/22 10:01 AM)NormalClearFCARNEGIE [facility] [place] UA Auto SSColor (U)Yellow (08/08/22 10:01 AM)NormalYellowFT UA Auto SSEpithelial cells.squamous LM.HPF (Urine sed) [#/Area]3-4 /HPFNormal0-2/HPFINTEGRIS [facility] [place] UA Auto SSGlucose Test strip (U) [Mass/Vol]Negative (08/08/22 10:01 AM)NormalNegativeINTE[facility] [place] UA Auto SSHemoglobin Ql (U)Negative (08/08/22 10:01 AM)NormalNegativeINTE[facility] [place] UA Auto SSKetones (U) [Mass/Vol]Negative (08/08/22 10:01 AM)NormalNegativeINTEGRIS [facility] [place] UA Auto SSLithium.plasma/St. Libory.RBC (Bld) [Mass ratio]0-3 /HPFNormal0-3/HPFINTEGRIS [facility] [place] UA Auto SSNitrite Ql (U)Negative (08/08/22 10:01 AM)NormalNegativeINTE[facility] [place] UA Auto SSpH (U)5.5 *NA* (08/08/22 10:01 AM)Invalid Interpretation Code5.0 - 9.0[facility] [place] [facility] UA Auto SSProtein (U) [Mass/Vol]Negative (08/08/22 10:01 AM)NormalNegativeINTEGRIS [facility] [place] UA Auto SSSpecific gravity (U) [Rel density]<=1.005 *NA* (08/08/22 10:01 AM)Invalid Interpretation Code1.005 - 1.030[facility] [place] UA Auto SSUA Spec DescClean Catch (08/08/22 10:01 AM)NormalINTEGRIS [facility]ITY [facility] [place] UA Auto SSUrobilinogen Qn (U)0.8049797 {Lucila'U}/dLNormal0.0 - 1.0 EU/dLINTEGRIS [facility]ITY [facility] [place] UA Auto SSWBC Auto Ql (U)Negative (08/08/22 10:01 AM)NormalNegativeINTEGR[facility] [place] UA Auto SSWBC LM.HPF (Urine sed) [#/Area] 0-5 /HPFNormal0-5/HPFINTEGRIS COMM[facility]ITY [facility] [place] UA Auto SSCBC AUTO DIFFon [id number] #0.1 103/ul Normal0.0-0.1The [facility] HospitalComment on above:Performed By: #### INFLUAB #### [facility] [address] [place] [address] Dr. Manuel SandhuBasophils/100 WBC (Bld)0.4 %Normal0.2-2.0[facility] Comment on above:Performed By: #### INFLUAB #### [facility] [address] [place] [address] Dr. Manuel Anthony #0.3 103/ulNormal0.0-0.7The [facility] HospitalComment on above: Performed By: #### INFLUAB #### [facility] [address] [place] [address] Dr. Manuel Gonzalesosinophils/100 WBC (Bld)2.4 %Normal0.9-7.0The [facility] Comment on above:Performed By: #### INFLUAB #### [facility] [address] [place] [address] Dr. Manuel Gonzalesrythrocyte distribution width (RBC) [Ratio]13.7 %Dmuapk13.0-15.0 The [facility] HospitalComment on above:Performed By: #### INFLUAB #### [facility] [address] [place] [address] Dr. Manuel SandhuHematocrit (Bld) [Volume fraction]36.5 %Vgvxln18.0-48.0The [facility] HospitalComment on above:Performed By: #### INFLUAB #### [facility] [address] [place] [address] Dr. Manuel SandhuHemoglobin (Bld) [Mass/Vol]12.3 g/dDLgeqwj34.0-16.0The [facility] HospitalComment on above:Performed By: #### INFLUAB #### [facility] [address] [place] [address] Dr. Manuel Fletcher #0.04 10e3/ulCritically high0.00-0.03The [facility] Comment on above:Performed By: #### INFLUAB #### [facility] [address] [place] [address] Dr. Manuel Fletcher %0.3 %Normal0.0-0.5The [facility] HospitalComment on above: Performed By: #### INFLUAB #### [facility] [address] [place] [address] Dr. Manuel Mac #2.6 103/ulNormal1.2-3.8The [facility] HospitalComment on above:Performed By: #### INFLUAB #### [facility] [address] [place] [address] Dr. Manuel Poolehocytes/100 WBC (Bld)22.3 %Cnbsby28.5-60.0The [facility] HospitalCompine rest [facility] mental [facility] services on above:Performed By: #### INFLUAB #### [facility] [address] [place] [address] Dr. Manuel WilhelmUAL DIFF REQNONormalThe [facility] HospitalComment on above: Performed By: #### INFLUAB #### [facility] [address] [place] [address] Dr. Manuel Hu (RBC) [Entitic mass]32.5 koOqcjzd62.7-34.0The [facility] HospitalCompine rest [facility] on above:Performed By: #### INFLUAB #### [facility] [address] [place] [address] Dr. Manuel Hu (RBC) [Mass/Vol]33.7 g/aMRnmpth68.9-35.2The [facility] HospitalCompine rest [facility] on above:Performed By: #### INFLUAB #### [facility] [address] [place] [address] Dr. Manuel Hu (RBC) [Entitic vol]96.6 oRSwsdqx16.0-99.0The [facility] HospitalCompine rest [facility] on above:Performed By: #### INFLUAB #### [facility] [address] [place] [address] Dr. Manuel Keith #0.6 103/ulNormal0.3-0.8The [facility] HospitalComment on above:Performed By: #### INFLUAB #### [facility] [address] [address] [address] Manuel Suarezocytes/100 WBC (Bld)5.2 %Normal1.7-12.0The [facility] Comment on above:Performed By: #### INFLUAB #### [facility] [address] [place] [address] Dr. Manuel RebollarUT #8.2 103/ulCritically high1.4-6.5The [facility] Comment on above:Performed By: #### INFLUAB #### [facility] [address] [place] [address] Dr. Manuel Rebollarutrophils/100 WBC (Bld)69.4 %Urbjfd37.0-75.0The [facility] HospitalComment on above:Performed By: #### INFLUAB #### [facility] [address] [place] [address] Dr. Manuel SandhuPlatelet mean volume (Bld) [Entitic vol]11.2 fLNormal9.5-13.5The [facility] HospitalComment on above:Performed By: #### INFLUAB #### [facility] [address] [place] [address] Dr. Manuel SandhuPLT308 103/wrHsxxtp358-405Bxl [facility] HospitalComment on above: Performed By: #### INFLUAB #### [facility] [address] [place] [address] Dr. Manuel SandhuRBC3.78 106/ulCritically low4.20-5.40The [facility] HospitalComment on above:Performed By: #### INFLUAB #### [facility] [address] [place] [address] Dr. Manuel SandhuWBC11.8 103/ulCritically high4.0-11.0The [facility] HospitalComment on above:Performed By: #### INFLUAB #### [facility] [address] [place] [address] Dr. Manuel Hanson-DIMERon 75-34-9007P-DIMER0.29 mg/L FEUNormal<=0.59The [facility] Healthcarement on above:Performed By: #### AVNI PERALTA #### [facility] [address] [place] [address] Dr. Manuel SandhuD-DIMER COMMENTSSEE BELOWNormalThSt. Mary's Medical CenterCompine rest [facility] mental [facility] services on above:Result Comment: Increases in D-Dimer concentration [...] hospitalization. Performed By: #### AVNI PERALTA #### [facility] [address] [place] [address] Dr. Manuel SandhuLIPASEon 84-87-4013Aodqgi [Catalytic activity/Vol]119.0 U/LNormal 73.0-393.0The [facility] on above:Performed By: #### CMP, JENNIE, LIPA #### [facility] [address] [place] [address] Dr. Manuel SandhuPRODiane 14(COMP METB)on 33-65-5244Lnhzgxm [Mass/Vol]3.5 g/dLNormal 3.4-5.0The [facility] on above:Performed By: #### CMP, JENNIE, LIPA #### [facility] [address] [place] [address] Dr. Manuel SandhuAlbumin/Globulin [Mass ratio]1.0 {ratio}NormalThe [facility] on above:Performed By: #### CMP, JENNIE, LIPA #### [facility] [address] [place] [address] Dr. Manuel Yu [Catalytic activity/Vol]65 U/FVkkjbt56-744Fzx [facility] on above:Performed By: #### CMP, JENNIE, LIPA #### [facility] [address] [place] [address] Dr. Yilan ChangALT [Catalytic activity/Vol]33 U/AFyslqt54-68Kqu [facility] HospitalComment on above:Performed By: #### CMP, JENNIE, LIPA #### [facility] [address] [place] [address] Dr. Manuel SandhuAnion gap [Moles/Vol]10.8 mmol/LNormalSumma Health Comment on above:Performed By: #### CMP, JENNIE, LIPA #### [facility] [address] [place] [address] Dr. Manuel SandhuAST [Catalytic activity/Vol]20 U/SWqlxmx91-74Oig [facility] HospitalComment on above:Performed By: #### CMP, JENNIE, LIPA #### [facility] [address] [place] [address] Dr. Manuel SandhuBilirubin [Mass/Vol]0.1 mg/dLCritically low0.2-1.0The [facility] HospitalComment on above:Performed By: #### CMP, JENNIE, LIPA #### [facility] [address] [place] [address] Dr. Manuel SandhuCalcium [Mass/Vol]8.7 mg/dLNormal8.5-10.1[facility] Comment on above:Performed By: #### CMP, JENNIE, LIPA #### [facility] [address] [place] [address] Dr. Manuel SandhuChloride [Moles/Vol]105 mmol/SMmlcyh65-893YjuSumma Health Comment on above:Performed By: #### CMP, JENNIE, LIPA #### [facility] [address] [place] [address] Dr. Manuel SandhuCO2 [Moles/Vol]24.4 mmol/DKxdfvv74.0-32.0[facility] Comment on above:Performed By: #### CMP, JENNIE, LIPA #### [facility] [address] [place] [address] Dr. Manuel SandhuCreatinine [Mass/Vol]0.91 mg/dLNormal0.55-1.02The [facility] HospitalComment on above:Performed By: #### CMP, JENNIE, LIPA #### [facility] [address] [address] [address] Manuel GonzalesGFR-AF MACEDONIAN>60Normal>=60The [facility] Healthcarement on above:Performed By: #### CMP, JENNIE, LIPA #### [facility] [address] [address] [address] Manuel GonzalesGFR-NON AF [place]>60Normal>=60The [facility] HospitalComment on above:Performed By: #### CMP, JENNIE, LIPA #### [facility] [address] [address] [address] Manuel SandhuGlobulin (S) [Mass/Vol]3.4 g/dLNormalThe [facility] HospitalComment on above:Performed By: #### CMP, JENNIE, LIPA #### [facility] [address] [place] [address] Dr. Manuel SandhuGlucose [Mass/Vol]127 mg/dLCritically vvyw54-383Nxm [facility] HospitalComment on above:Performed By: #### CMP, JENNIE, LIPA #### [facility] [address] [place] [address] Dr. Manuel SandhuPotassium [Moles/Vol]3.2 mmol/LCritically low3.5-5.1The [facility] Healthcarement on above:Performed By: #### CMP, JENNIE, LIPA #### [facility] [address] [address] [address] Manuel SandhuProtein [Mass/Vol]6.9 g/dLNormal6.4-8.2The [facility] Comment on above:Performed By: #### CMP, JENNIE, LIPA #### [facility] [address] [address] [address] Manuel SandhuSodium [Moles/Vol]137 mmol/PYfycmz075-677Mnl [facility] Comment on above:Performed By: #### CMP, JENNIE, LIPA #### [facility] [address] [address] [address] Manuel SandhuUrea nitrogen [Mass/Vol]13.0 mg/dLNormal7.0-18.0The [facility] HospitalComment on above:Performed By: #### CMP, JENNIE, LIPA #### [facility] [address] [place] [address] Dr. Manuel Ramirez nitrogen/Creatinine [Mass ratio]14.3 mg/mgNoFlower HospitalComment on above:Performed By: #### CMP, JENNIE, LIPA #### [facility] [address] [place] [address] Dr. Manuel SandhuPROTIMEon 24-23-0578HMQ Coag (PPP) [Relative time]0.97 {INR} NormalThe [facility] HospitalComment on above:Performed By: #### PTT, PT #### [facility] [address] [place] [address] Dr. Manuel Esteves GUIDELINESSEE BELOWToledo HospitalComment on above:Result Comment: DESIRED INR: 2.0 - 3.0 CONDITIONS NOT LISTED BELOW 2.5 - 3.5 FOR PROSTHETIC HEART VALVE REPLACEMENT 2.5 - 3.5 RECURRENT THROMBOSIS Performed By: #### PTT, PT #### [facility] [address] [place] [address] Dr. Manuel SandhuPT Coag (PPP) [Time]10.5 sNormal9.0-11.6The [facility] Comment on above:Performed By: #### PTT, PT #### [facility] [address] [place] [address] Dr. Manuel Tena [id number] Coag (Bld) [Time]26.1 jYixnzl80.3-36.2Summa HealthComment on above:Performed By: #### PTT, PT #### [facility] [address] [place] [address] Dr. Manuel Juarez, [facility] SENSITIVITYon [id number] pg/mLNormal 4.0-51.3The [facility] HospitalComment on above:Result Comment: CUT-OFF POINTS HAVE BEEN ESTABLISHED BASED ON THE FOURTH UNIVERSAL DEFINITIONS OF MYOCARDIAL INFARCTION. THE UPPER REFERENCE LIMIT (URL) OF TROPONIN, DEFINED THE 99TH PERCENTILE OF cTnI DISTRIBUTION IN A REFERENCE POPULATION, HAS BEEN CONFIRMED THE DECISION THRESHOLD FOR CT DIAGNOSIS.Performed By: #### AVNI PERALTA #### [facility] [address] [id number] Manuel SandhuHSTROP5.1 pg/mLNormal4.0-51.3TSamaritan North Health CenterComment on above:Result Comment: CUT-OFF POINTS HAVE BEEN ESTABLISHED BASED ON THE FOURTH UNIVERSAL DEFINITIONS OF MYOCARDIAL INFARCTION. THE UPPER REFERENCE LIMIT (URL) OF TROPONIN, DEFINED THE 99TH PERCENTILE OF cTnI DISTRIBUTION IN A REFERENCE POPULATION, HAS BEEN CONFIRMED THE DECISION THRESHOLD FOR CT DIAGNOSIS.Performed By: #### JENNIE RAMOS LIPA #### [facility] [address] [id number] Manuel SandhuXR CHEST 1 Von [id number] CHEST 1 VPORTABLE CHEST X-RAY. INDICATION: Chest pain. COMPARISON: 06/12/2022 TECHNIQUE: Single AP portable chest radiograph. FINDINGS: TUBES AND LINES: None. LUNGS: Mildly elevated right hemidiaphragm. No focal opacity. PLEURA: No effusions or pneumothorax. HEART AND MEDIASTINUM: Within normal limits for portable technique. OSSEOUS STRUCTURES: No acute abnormality. IMPRESSION: No acute findings. Electronically authenticated by: LUCIANA ALLEN Date: 2022-07-19 19:28NoFlower HospitalCovid-19 PCR (CVDTBH)on 70-23-3758KEEC-CoV-2 (COVID-19) RNA JOSÉ MIGUEL+probe Ql (Unsp spec)Not detectedNormalNOT DETECTEDThe [facility] Comment on above:Result Comment: When diagnostic [...] for this test is supported by the [place] Inspector of Health and Human Service's declaration that [...] may no longer be used).Performed By: #### JENNIE RAMOS LIPA #### [facility] [address] [address] [address] Manuel SandhuXR CHEST 2 Von [id number] CHEST 2 VEXAMINATION: XR CHEST 2 V [...] Electronically authenticated by: CAROLYNE RALPH Date: 2022-06-12 10:12Toledo HospitalCovid-19 PCR (CVDTBH)on 84-60-6554VANY-CoV-2 (COVID-19) RNA JOSÉ MIGUEL+probe Ql (Unsp spec)Not detectedNormalNOT DETECTEDThe [facility] Comment on above:Result Comment: When diagnostic [...] this test is supported by the [place] of Health and Human Service's declaration that [...] longer be used).Performed By: #### INFLUAB #### [facility] [address] [address] [address] Manuel SandhuCHEMISTRYOrdered By: SYSTEM SYSTEM on 59-28-3185Eurzs gap [Moles/Vol]12 mmol/LNormal6 - 16 mEq/LFTMC RemisolCalcium [Mass/Vol]9.5 mg/dL Normal8.9 - 11.1 mg/dLFTMC RemisolChloride [Moles/Vol]107 mmol/OAevgql166 - 111 mmol/LFTMC RemisolCO2 [Moles/Vol]22 mmol/IKvkzok35 - 31 mmol/LFTMC Remisol Creatinine [Mass/Vol]0.6 mg/dLNormal0.5 - 1.3 mg/dLFTMC RemisolGFR/1.73 sq M.predicted among blacks MDRD (S/P/Bld) [Vol rate/Area]mL/min/1.73 z7Owoozg >=59mL/min/1.73 m2FT Chem SGFR/1.73 sq M.predicted among non-blacks MDRD (S/P/Bld) [Vol rate/Area]mL/min/1.73 m0Wjpvte>=59mL/min/1.73 m2FT Chem S Glucose [Mass/Vol]98 mg/eDVovvuy95 - 199 mg/dLFTMC RemisolPotassium [Moles/Vol] 3.6 mmol/LNormal3.5 - 5.3 mmol/LFTMC RemisolSodium [Moles/Vol]137 mmol/LNormal 135 - 145 mmol/LFTMC RemisolUrea nitrogen [Mass/Vol]15 mg/dLNormal5 - 21 mg/dL FT RemisolUrea nitrogen/Creatinine [Mass ratio]25 mg/dtLghp24 - 20FT[facility] Remisol HEMATOLOGYOrdered By: SYSTEM SYSTEM on 84-79-8161Bqgwsvjbo/100 WBC (Bld)0.6 % Normal0.0 - 2.0 %[facility] HemeAutoSSBasophils/Leukocytes Auto (Bld) [Pure # fraction]0.1 E9/LNormal0.0 - 0.2 E9/LFTMC HemeAutoSSEosinophils/100 WBC (Bld)1.6 %Normal0.0 - 8.0 %[facility] HemeAutoSSEosinophils/Leukocytes Auto (Bld) [Pure # fraction]0.2 E9/LNormal0.0 - 0.5 E9/LFTMC HemeAutoSSLymphocytes/100 WBC (Bld) 18.1 %Soobuj31.0 - 50.0 %[facility] HemeAutoSSLymphocytes/Leukocytes Auto (Bld) [Pure # fraction]2.4 E9/LNormal1.0 - 4.0 E9/LFTMC HemeAutoSSMonocytes/100 WBC (Bld)6.2 %Normal4.0 - 14.0 %[facility] HemeAutoSSMonocytes/Leukocytes Auto (Bld) [Pure # fraction]0.8 E9/LNormal0.2 - 1.0 E9/LFTMC HemeAutoSSNeutrophils/100 WBC (Bld) 73.5 %Kdclzw62.0 - 75.0 %[facility] HemeAutoSSNeutrophils/Leukocytes Auto (Bld) [Pure # fraction]9.6 E9/LHigh2.0 - 7.5 E9/LFTMC HemeAutoSSHEMATOLOGYOrdered By: Shasta Eller on 33-42-8062Ckfpogidyif distribution width (RBC) [Ratio]14.2 %Normal 10.9 - 14.2 %[facility] HemeAutoSSHematocrit (Bld) [Volume fraction]39.3 %Nzssid58.0 - 46.0 %[facility] HemeAutoSSHemoglobin (Bld) [Mass/Vol]12.9 g/qJQlfrxf65.0 - 16.0 gm/dL [facility] HemeAutoSSMCH (RBC) [Entitic mass]31.1 adVluqjq62.0 - 34.0 pgFTMC HemeAutoSSMCHC (RBC) [Mass/Vol]32.7 g/tALukgof72.4 - 36.0 gm/dLFTMC HemeAutoSS MCV (RBC) [Entitic vol]95.1 sLKzvumi09.0 - 100.0 fLFTMC HemeAutoSSPlatelet mean volume (Bld) [Entitic vol]9.7 fLNormal6.4 - 10.8 fLFTMC HemeAutoSSPlatelets (Bld) [#/Vol]312.0 E9/OPonppu696.0 - 500.0 E9/LFTMC HemeAutoSSRBC (Bld) [#/Vol] 4.1 E12/LLow4.3 - 5.9 E12/LFTMC HemeAutoSSWBC corrected for nucl RBC Auto (Bld) [#/Vol]13.1 E9/LHigh4.0 - 11.0 E9/LFTMC HemeAutoSSCovid-19 PCR (CVDTBH)on 95-18-5922EOPZ-CoV-2 (COVID-19) RNA JOSÉ MIGUEL+probe Ql (Unsp spec)DetectedCritically abnormalNOT DETECTEDThe [facility] HospitalComment on above:Result Comment: This test is not yet approved or cleared by the [place] FDA. When there are no FDA-approved or cleared tests available, and other criteria are met, FDA can make tests available under an emergency access mechanism called an Emergency Use Authorization (EUA). The EUA for this test is supported by the [place] of Health and Human Service's declaration that [...] used).Performed By: #### JENNIE RAMOS LIPA #### [facility] [address] [place] [address] Dr. Manuel Lehman STREP CULTUREon 04-07-2022. pyogenes Ag Ql (Unsp spec) Culture Observations: NEGATIVE FOR GROUP A STREPTOCOCCUS.NormalThe [facility] HospitalComment on above: Performed By: #### KATHRYN, ERUR #### [facility] [address] [address] [address] Manuel SandhuINFLCHAUNZA A AND B AGon [id number] A AGNegativeNormal NEGATIVE SEE COMMENTThe [facility] HospitalComment on above:Performed By: #### INFLUAB #### [facility] [address] [address] [address] Manuel SandhuINFLUENZA B AGNegativeNormalNEGATIVE SEE COMMENTThe [facility] HospitalComment on above:Performed By: #### INFLUAB #### [facility] [address] [address] [address] Manuel SandhuINTERNAL CONTROLSWithin Normal LimitsNormalWithin Normal Limits The [facility] HospitalCompine rest christian mental health services on above:Performed By: #### INFLUAB #### [facility] [address] [address] [address] Manuel SandhuSTREPT SCREENon 71-13-3880RADIP SCREEN ANegativeNormalNEGATIVEThe [facility] HospitalComment on above:Performed By: #### UMICRO, ERUR #### [facility] [address] [address] [address] Manuel SandhuCHEMISTRYOrdered By: SYSTEM SYSTEM on 84-29-1619Mjokc gap [Moles/Vol]14 mmol/LNormal6 - 16 mEq/LFTMC RemisolCalcium [Mass/Vol]9.3 mg/dL Normal8.9 - 11.1 mg/dLFTMC RemisolChloride [Moles/Vol]106 mmol/DWllser347 - 111 mmol/LFTMC RemisolCO2 [Moles/Vol]22 mmol/MUztggx67 - 31 mmol/LFTMC Remisol Cobalamin (Vitamin B12) [Mass/Vol]658 pg/mQNrevfp86 - 1500 pg/mLFTMC Remisol Creatinine [Mass/Vol]0.7 mg/dLNormal0.5 - 1.3 mg/dLFTMC RemisolFolate [Mass/Vol] ng/mLNormal>=6.7ng/mLFTMC RemisolGFR/1.73 sq M.predicted among blacks MDRD (S/P/Bld) [Vol rate/Area]mL/min/1.73 p6Qaqeys>=59mL/min/1.73 m2[facility] Chem S GFR/1.73 sq M.predicted among non-blacks MDRD (S/P/Bld) [Vol rate/Area] mL/min/1.73 g8Snzpfr>=59mL/min/1.73 m2[facility] Chem SGlucose [Mass/Vol]83 mg/dL Ysygmr19 - 199 mg/dLFTMC RemisolIron [Mass/Vol]65 ug/gYSktdsn00 - 153 mcg/dLFTMC RemisolMagnesium [Mass/Vol]1.9 mg/dLNormal1.3 - 2.4 mg/dLFTMC RemisolPotassium [Moles/Vol]3.7 mmol/LNormal3.5 - 5.3 mmol/LFTMC RemisolSodium [Moles/Vol]138 mmol/WMuwjzp024 - 145 mmol/LFTMC RemisolUrea nitrogen [Mass/Vol]13 mg/dLNormal5 - 21 mg/dLFTMC RemisolUrea nitrogen/Creatinine [Mass ratio]19 mg/rnLuqriw86 - 20 [facility] RemisolHEMATOLOGYOrdered By: SYSTEM SYSTEM on 30-30-4749Awrvswhwc/100 WBC (Bld)0.7 %Normal0.0 - 2.0 %[facility] HemeAutoSSBasophils/Leukocytes Auto (Bld) [Pure # fraction]0.1 E9/LNormal0.0 - 0.2 E9/LFTMC HemeAutoSSEosinophils/100 WBC (Bld) 3.2 %Normal0.0 - 8.0 %[facility] HemeAutoSSEosinophils/Leukocytes Auto (Bld) [Pure # fraction]0.4 E9/LNormal0.0 - 0.5 E9/LFTMC HemeAutoSSLymphocytes/100 WBC (Bld) 24.5 %Aitpjo49.0 - 50.0 %[facility] HemeAutoSSLymphocytes/Leukocytes Auto (Bld) [Pure # fraction]2.8 E9/LNormal1.0 - 4.0 E9/LFTMC HemeAutoSSMonocytes/100 WBC (Bld)6.4 %Normal4.0 - 14.0 %[facility] HemeAutoSSMonocytes/Leukocytes Auto (Bld) [Pure # fraction]0.7 E9/LNormal0.2 - 1.0 E9/LFTMC HemeAutoSSNeutrophils/100 WBC (Bld) 65.2 %Hrofwb18.0 - 75.0 %[facility] HemeAutoSSNeutrophils/Leukocytes Auto (Bld) [Pure # fraction]7.3 E9/LNormal2.0 - 7.5 E9/LFTMC HemeAutoSSHEMATOLOGYOrdered By: Hansa Marcos on 58-95-9790Opfsxplxody distribution width (RBC) [Ratio]14.1 %Ixegai03.9 - 14.2 %[facility] HemeAutoSSHematocrit (Bld) [Volume fraction]37.3 %Fdggwo62.0 - 46.0 %[facility] HemeAutoSSHemoglobin (Bld) [Mass/Vol]12.4 g/wSXxeotl71.0 - 16.0 gm/dL [facility] HemeAutoSSMCH (RBC) [Entitic mass]31.6 acJsdrdr64.0 - 34.0 pgFTMC HemeAutoSSMCHC (RBC) [Mass/Vol]33.1 g/qDQsvqkz67.4 - 36.0 gm/dLFTMC HemeAutoSS MCV (RBC) [Entitic vol]95.4 fSFeuwkc46.0 - 100.0 fLFTMC HemeAutoSSPlatelet mean volume (Bld) [Entitic vol]9.6 fLNormal6.4 - 10.8 fLFT HemeAutoSSPlatelets (Bld) [#/Vol]267.0 E9/FJvpgti596.0 - 500.0 E9/LFC HemeAutoSSRBC (Bld) [#/Vol] 3.9 E12/LLow4.3 - 5.9 E12/[facility] HemeAutoSSWBC corrected for nucl RBC Auto (Bld) [#/Vol]11.3 E9/LHigh4.0 - 11.0 E9/[facility] HemeAutoSSURINALYSISOrdered By: Aspen Leonard on 58-32-9315Bjpcjswfl Ql (U)Negative (04/03/22 6:51 PM)NormalNegativeFTMC UA Auto SSClarity (U)Clear (04/03/22 6:51 PM)NormalClearFTMC UA Auto SSColor (U)Yellow (04/03/22 6:51 PM)NormalYellowFTMC UA Auto SSEpithelial cells.squamous LM.HPF (Urine sed) [#/Area]0-2 /HPFNormal0-2/HPFFTMC UA Auto SSGlucose Test strip (U) [Mass/Vol]Negative (04/03/22 6:51 PM)NormalNegativeIN[facility] [place] UA Auto SSHemoglobin Ql (U)Negative (04/03/22 6:51 PM)NormalNegativeIN[facility] [place] UA Auto SSKetones (U) [Mass/Vol]Negative (04/03/22 6:51 PM)NormalNegativeINTEGR[facility] [place] UA Auto SSLithium.plasma/St. Libory.RBC (Bld) [Mass ratio]0-3 /HPFNormal0-3/HPFINTEGRIS [facility] [place] UA Auto SSNitrite Ql (U)Negative (04/03/22 6:51 PM)NormalNegativeINTEGR[facility] [place] UA Auto SSpH (U)5.0 *NA* (04/03/22 6:51 PM)Invalid Interpretation Code5.0 - 9.0[facility] [place] UA Auto SSProtein (U) [Mass/Vol]Negative (04/03/22 6:51 PM)NormalNegativeINTEGRIS [facility] [place] UA Auto SSSpecific gravity (U) [Rel density] 1.010 *NA* (04/03/22 6:51 PM)Invalid Interpretation Code1.005 - 1.030[facility] [place] UA Auto SSUA Spec DescClean Catch (04/03/22 6:51 PM)NormalINTEGRIS [facility] [place] UA Auto SSUrobilinogen Qn (U)0.3067574 {Lucila'U}/dLNormal0.0 - 1.0 EU/dLINTEGRIS [facility] [place] UA Auto SSWBC Auto Ql (U)Negative (04/03/22 6:51 PM)NormalNegativeINTE[facility] [place] UA Auto SSWBC LM.HPF (Urine sed) [#/Area]0-5 /HPFNormal0-5/HPFINTEGRIS [facility] [place] UA Auto SSGROUP A STREP CULTUREon 02-08-2022. pyogenes Ag Ql (Unsp spec)Culture Observations: NEGATIVE FOR GROUP A STREPTOCOCCUS.NormalThe [facility] HospitalComment on above: Performed By: #### INFLUAB #### [facility] [address] [place] [address] Dr. Manuel Basurto SCREENon 91-37-4407QBTPQ SCREEN ANegativeNormalNEGATIVEThe [facility] HospitalComment on above:Performed By: #### INFLUAB #### [facility] [address] [place] [address] [address] Manuel Bruno AUTO DIFFon 68-18-7169MQUD #0.1 103/ulNormal0.0-0.1The [facility] HospitalComment on above:Performed By: #### CBC #### [facility] [address] [address] [address] Manuel SandhuBasophils/100 WBC (Bld)0.4 %Normal0.2-2.0[facility] Comment on above:Performed By: #### CBC #### [facility] [address] [address] [address] Manuel Anthony #0.4 103/ulNormal0.0-0.7The [facility] HospitalComment on above: Performed By: #### CBC #### [facility] [address] [place] [address] Dr. Manuel Gonzalesosinophils/100 WBC (Bld)3.0 %Normal0.9-7.0[facility] Comment on above:Performed By: #### CBC #### [facility] [address] [place] [address] Dr. Manuel Gonzalesrythrocyte distribution width (RBC) [Ratio]13.3 %Flunbk95.0-15.0 The [facility] HospitalComment on above:Performed By: #### CBC #### [facility] [address] [place] [address] Dr. Manuel SandhuHematocrit (Bld) [Volume fraction]36.8 %Inbdta01.0-48.0The [facility] HospitalComment on above:Performed By: #### CBC #### [facility] [address] [place] [address] Dr. Manuel SandhuHemoglobin (Bld) [Mass/Vol]12.2 g/bMYdyszo78.0-16.0The [facility] HospitalComment on above:Performed By: #### CBC #### [facility] [address] [place] [address] Dr. Manuel Fletcher #0.04 10e3/ulCritically high0.00-0.03The [facility] Comment on above:Performed By: #### CBC #### [facility] [address] [address] [address] Manuel Fletcher %0.3 %Normal0.0-0.5The [facility] HospitalComment on above: Performed By: #### CBC #### [facility] [address] [place] [address] Dr. Manuel Mac #2.8 103/ulNormal1.2-3.8The [facility] HospitalComment on above:Performed By: #### CBC #### [facility] [address] [place] [address] Dr. Manuel Poolehocytes/100 WBC (Bld)23.0 %Daimug24.5-60.0The [facility] on above:Performed By: #### CBC #### [facility] [address] [place] [address] Dr. Manuel WilhelmUAL DIFF REQNONormalThe [facility] HospitalComment on above: Performed By: #### CBC #### [facility] [address] [place] [address] Dr. Manuel Hu (RBC) [Entitic mass]32.1 lgYmahic06.7-34.0The [facility] on above:Performed By: #### CBC #### [facility] [address] [place] [address] Dr. Manuel Hu (RBC) [Mass/Vol]33.2 g/wQRqbnkx91.9-35.2The [facility] on above:Performed By: #### CBC #### [facility] [address] [place] [address] Dr. Manuel Hu (RBC) [Entitic vol]96.8 xCFkcilw37.0-99.0The [facility] on above:Performed By: #### CBC #### [facility] [address] [place] [address] Dr. Manuel Keith #0.7 103/ulNormal0.3-0.8The [facility] HospitalComment on above:Performed By: #### CBC #### [facility] [address] [place] [address] Dr. Manuel Suarezocytes/100 WBC (Bld)5.6 %Normal1.7-12.0The [facility] Comment on above:Performed By: #### CBC #### [facility] [address] [place] [address] Dr. Manuel RebollarUT #8.2 103/ulCritically high1.4-6.5The [facility] Comment on above:Performed By: #### CBC #### [facility] [address] [place] [address] Dr. Manuel Rebollarutrophils/100 WBC (Bld)67.7 %Emudgs01.0-75.0The [facility] HospitalComment on above:Performed By: #### CBC #### [facility] [address] [place] [address] Dr. Manuel SandhuPlatelet mean volume (Bld) [Entitic vol]11.2 fLNormal9.5-13.5The [facility] HospitalComment on above:Performed By: #### CBC #### [facility] [address] [place] [address] Dr. Manuel SandhuPLT312 103/diEuzflr344-056Due [facility] HospitalComment on above: Performed By: #### CBC #### [facility] [address] [place] [address] Dr. Manuel SandhuRBC3.80 106/ulCritically low4.20-5.40The [facility] HospitalComment on above:Performed By: #### CBC #### [facility] [address] [place] [address] Dr. Manuel SandhuWBC12.1 103/ulCritically high4.0-11.0The [facility] HospitalComment on above:Performed By: #### CBC #### [facility] [address] [place] [address] Dr. Manuel SandhuCovid-19 PCR (CVDTB)on 63-42-1235QTWQ-CoV-2 (COVID-19) RNA JOSÉ MIGUEL+probe Ql (Unsp spec)Not detectedNormalNOT DETECTEDSum[facility] Health Comment on above:Result Comment: This test is not yet approved or cleared by the [place] FDA. When there are no FDA-approved or cleared tests available, and other criteria are met, FDA can make tests available under an emergency access mechanism called an Emergency Use Authorization (EUA). The EUA for this test is supported by the [place] of Health and Human Service's (HHS's) declaration [...] consistent with SARS-CoV-2.Performed By: #### CVDTB #### [facility] [address] [place] [address] Dr. Manuel SandhuDRUG SCREEN RAPID (URINE)on 39-45-7329TQVAlqhbzkyJkhzxcZUMMGFLG Summa HealthComment on above:Performed By: #### AVNI PERALTA #### [facility] [address] [place] [address] Dr. Manuel SandhuBARNegativeNormalNEGATIVESumma HealthComment on above: Performed By: #### TAMARA PERALTAR #### [facility] [address] [place] [address] Dr. Manuel SandhuBUPNegativeNormalNEGATIVESumma HealthComment on above: Performed By: #### TAMARA PERALTAR #### [facility] [address] [place] [address] Dr. Manuel SandhuBZONegativeNormalNEGATIVESumma HealthComment on above: Performed By: #### TAMARA PERALTAR #### [facility] [address] [place] [address] Dr. Manuel SandhuCOCNegativeNormalNEGATIVEKettering Health Washington Townshipment on above: Performed By: #### KATHRYN ERUR #### [facility] [address] [place] [address] [address] Joseph Warren HospitalComment on above: Result Comment: AMP (Amphetamine): 500ng/mL, BAR (Barbituates): 200 ng/mL, BZO (Benzodiazepines): 150 ng/mL, BUP (Buprenorphine): 10 ng/mL, WISAM (Cocaine): 150 ng/mL, mAMP (Methamphetamine): 500 ng/mL, MTD (Methadone): 200 ng/mL, OPI (Opiates): 100 ng/mL, OXY (Oxycodone): 100 ng/mL, PCP (Phencyclidine): 25 ng/mL, PPX (Propoxyphene): 300 ng/mL, THC (Cannabinoids): 50 ng/mL, TCA (Trycyclic Antidepressants): 300 ng/mLPerformed By: #### KATHRYN ERUR #### [facility] [address] [place] [address] Dr. Manuel SandhuDRUG CUT HEADERDRUG CLASS TEST SYSTEM CUT-OFF CONCENTRATIONS ARE FOLLOWS:NormalThe [facility] on above:Performed By: #### TAMARA PERALTAR #### [facility] [address] [place] [address] Dr. Manuel SandhumAMPNegativeNormalNEGUniversity Hospitals Samaritan Medical CenterCompine rest christ[facility] services on above: Performed By: #### KATHRYN ERUR #### [facility] [address] [place] [address] Dr. Manuel JacobsDNegativeNormalNEGATIVESumma HealthCompine rest christian mental health services on above: Performed By: #### TAMARA PERALTAR #### [facility] [address] [place] [address] Dr. Manuel GaitaniveNormalNEGATIVECoshocton Regional Medical Center on above: Performed By: #### KATHRYN ERUR #### [facility] [address] [place] [address] Dr. Manuel HawkinsNegativeNormalNEGATIVESumma HealthComment on above: Performed By: #### KATHRYN, ERUR #### [facility] [address] [address] [address] Manuel SandhuPCPNegativeNormalNEGATIVESumma HealthCompine rest [facility] mental health services on above: Performed By: #### KATHRYN, ERUR #### [facility] [address] [address] [address] Manuel SandhuPPXNegativeNormalNEGATIVESumma HealthComment on above: Performed By: #### KATHRYN, ERUR #### [facility] [address] [place] [address] Dr. Manuel SandhuTCANegativeNormalNEGATIVESumma HealthCompine rest [facility] mental health services on above: Performed By: #### KATHRYN, ERUR #### [facility] [address] [place] [address] Dr. Manuel SandhuTHCNegativeNormalNEGATIVESumma HealthCompine rest [facility] mental health services on above: Performed By: #### KATHRYN, ERUR #### [facility] [address] [place] [address] Dr. Manuel Rodriguez URINE PROFILEon [id number] Ql (U)NegativeNormal NEGATIVESumma HealthCompine rest christ[facility] mental health services on above:Performed By: #### KATHRYN, ERUR #### [facility] [address] [place] [address] Dr. Manuel Eid (U)CLEARNormalCLEARSumma HealthComment on above: Performed By: #### KATHRYN, ERUR #### [facility] [address] [place] [address] Dr. Manuel Gautam (U)LT. YELLOWNormalYELLOWSumma HealthCompine rest christian mental health services on above:Performed By: #### KATHRYN, ERUR #### [facility] [address] [place] [address] Dr. Manuel BennettDA micrscopic examination will be performed if indicated. NormalSumma HealthComment on above:Performed By: #### KATHRYN, ERUR #### [facility] [address] [address] [address] Manuel SandhuGlucose Ql (U)NegativeNormalNEGATIVESumma HealthComment on above:Performed By: #### KATHRYN ERUR #### [facility] [address] [address] [address] Manuel SandhuHemoglobin Ql (U)NegativeNormalNEGATIVESumma Health Comment on above:Performed By: #### KATHRYN ERUR #### [facility] [address] [address] [address] Manuel SandhuKetones Ql (U)NegativeNormalNEGATIVESumma HealthComment on above:Performed By: #### TAMARA PERALTAR #### [facility] [address] [place] [address] Dr. Manuel SandhuLEUKOCYTESNegativeNormalNEGATIVESumma HealthComment on above:Performed By: #### TAMARA PERALTAR #### [facility] [address] [place] [address] Dr. Manuel SandhuNitrite Ql (U)NegativeNormalNEGUniversity Hospitals Samaritan Medical CenterComment on above:Performed By: #### TAMARA PERALTAR #### [facility] [address] [place] [address] Dr. Manuel SandhupH (U)5.5 [pH]Normal5-9Summa HealthComment on above: Performed By: #### TAMARA PERALTAR #### [facility] [address] [place] [address] Dr. Manuel SandhuSPEC GRAVITY<=1.871Sgnamsjs5.005-<=1.025[facility] Comment on above:Performed By: #### TAMARA PERALTAR #### [facility] [address] [place] [address] Dr. Manuel SandhuUA PROTEINNegativeNormalNEGATIVE/ TRACESumma Health Comment on above:Performed By: #### TAMARA PERALTAR #### [facility] [address] [place] [address] Dr. Manuel Robb MICRO INDNOT INDICATEDNoFlower HospitalComment on above:Performed By: #### TAMARA PERALTAR #### [facility] [address] [place] [address] Dr. Manuel Vyas Qn (U)0.2 {Lucila'U}/dLNormal0.2 - 1.0The Saratoga HospitalComment on above:Performed By: #### KATHRYN ERUR #### [facility] [address] [place] [address] Dr. Manuel AriasANOL (BLD ALC)on [id number] NOTENOTE: 80 mg/dl is the legal limit for a blood alcohol levelNoFlower HospitalComment on above: Performed By: #### INFLUAB #### [facility] [address] [place] [address] Dr. Manuel Gonzalesthanol [Mass/Vol]47 mg/dLNoFlower HospitalComment on above:Performed By: #### INFLUAB #### [facility] [address] [place] [address] Dr. Manuel Dowling HCG QUALon [id number], QUALNegativeNormalNEGATIVE The [facility] HospitalComment on above:Performed By: #### KATHRYN ERUR #### [facility] [address] [place] [address] Dr. Manuel SandhuPROF 14(COMP METB)on 51-98-6111Prdzipe [Mass/Vol]3.8 g/dLNormal 3.4-5.0The [facility] HospitalComment on above:Performed By: #### INFLUAB #### [facility] [address] [place] [address] Dr. Manuel SandhuAlbumin/Globulin [Mass ratio]1.1 {ratio}NormalThe Saratoga HospitalComment on above:Performed By: #### INFLUAB #### [facility] [address] [place] [address] Dr. Manuel SaavedraP [Catalytic activity/Vol]88 U/CBpqkkd00-987Fuq [facility] HospitalComment on above:Performed By: #### INFLUAB #### [facility] [address] [address] [address] Manuel Montana [Catalytic activity/Vol]30 U/QBcnxcx85-51Pfu [facility] HospitalComment on above:Performed By: #### INFLUAB #### [facility] [address] [address] [address] Manuel Torreson gap [Moles/Vol]17.3 mmol/LNormalThe [facility] Comment on above:Performed By: #### INFLUAB #### [facility] [address] [address] [address] Manuel SandhuAST [Catalytic activity/Vol]17 U/HGltdev17-97Muw [facility] HospitalComment on above:Performed By: #### INFLUAB #### [facility] [address] [address] [address] Manuel SandhuBilirubin [Mass/Vol]0.2 mg/dLNormal0.2-1.0[facility] Comment on above:Performed By: #### INFLUAB #### [facility] [address] [address] [address] Manuel SandhuCalcium [Mass/Vol]8.9 mg/dLNormal8.5-10.1[facility] Comment on above:Performed By: #### INFLUAB #### [facility] [address] [address] [address] Manuel SandhuChloride [Moles/Vol]109 mmol/LCritically jzmp40-948Dvo [facility] HospitalComment on above:Performed By: #### INFLUAB #### [facility] [address] [address] [address] Manuel SandhuCO2 [Moles/Vol]20.2 mmol/LCritically low21.0-32.0The [facility] HospitalComment on above:Performed By: #### INFLUAB #### [facility] [address] [address] [address] Manuel SandhuCreatinine [Mass/Vol]0.69 mg/dLNormal0.55-1.02Summa HealthComment on above:Performed By: #### INFLUAB #### [facility] [address] [place] [address] Dr. Manuel GonzalesGFR-AF MACEDONIAN>60Normal>=60The [facility] HospitalComment on above:Performed By: #### INFLUAB #### [facility] [address] [address] [address] Manuel GonzalesGFR-NON AF MACEDONIAN>60Normal>=60Summa HealthComment on above:Performed By: #### INFLUAB #### [facility] [address] [address] [address] Manuel SandhuGlobulin (S) [Mass/Vol]3.6 g/dLNormalThe [facility] HospitalComment on above:Performed By: #### INFLUAB #### [facility] [address] [place] [address] Dr. Manuel SandhuGlucose [Mass/Vol]79 mg/vELxsuqt26-080SdrSumma Health Comment on above:Performed By: #### INFLUAB #### [facility] [address] [place] [address] Dr. Manuel SandhuPotassium [Moles/Vol]3.5 mmol/LNormal3.5-5.1The [facility] Comment on above:Performed By: #### INFLUAB #### [facility] [address] [place] [address] Dr. Manuel SandhuProtein [Mass/Vol]7.4 g/dLNormal6.4-8.2[facility] Comment on above:Performed By: #### INFLUAB #### [facility] [address] [address] [address] Manuel SandhuSodium [Moles/Vol]143 mmol/BPpayyf389-686IywSumma Health Comment on above:Performed By: #### INFLUAB #### [facility] [address] [address] [address] Manuel SandhuUrea nitrogen [Mass/Vol]18.0 mg/dLNormal7.0-18.0The [facility] HospitalComment on above:Performed By: #### INFLUAB #### [facility] [address] [place] [address] Dr. Manuel Ramirez nitrogen/Creatinine [Mass ratio]26.1 mg/mgNoalThe [facility] HospitalComment on above:Performed By: #### INFLUAB #### [facility] [address] [place] [address] Dr. Manuel SandhuAMYLASEon 46-92-5384Ayntmgk [Catalytic activity/Vol]60 U/LNormal 31-110The [facility] HospitalComment on above:Performed By: #### CMP, JENNIE, LIPA #### [facility] [address] [place] [address] Dr. Manuel MartinoC AUTO DIFFon [id number] #0.1 103/ulNormal0.0-0.1The [facility] HospitalComment on above:Performed By: #### CMP, JENNIE, LIPA #### [facility] [address] [place] [address] Dr. Manuel SandhuBasophils/100 WBC (Bld)0.5 %Normal0.2-2.0[facility] Comment on above:Performed By: #### CMP, JENNIE, LIPA #### [facility] [address] [place] [address] Dr. Manuel Anthony #0.3 103/ulNormal0.0-0.7The [facility] HospitalComment on above: Performed By: #### CMP, JENNIE, LIPA #### [facility] [address] [place] [address] Dr. Manuel Gonzalesosinophils/100 WBC (Bld)3.1 %Normal0.9-7.0The [facility] Comment on above:Performed By: #### CMP, JENNIE, LIPA #### [facility] [address] [place] [address] Dr. Manuel Gonzalesrythrocyte distribution width (RBC) [Ratio]13.4 %Uxlsdz96.0-15.0 The [facility] HospitalComment on above:Performed By: #### CMP, JENNIE, LIPA #### [facility] [address] [place] [address] Dr. Manuel SandhuHematocrit (Bld) [Volume fraction]39.0 %Kczdnj11.0-48.0The [facility] HospitalComment on above:Performed By: #### CMP, JENNIE, LIPA #### [facility] [address] [place] [address] Dr. Manuel SandhuHemoglobin (Bld) [Mass/Vol]12.8 g/hSUlvihq47.0-16.0The [facility] HospitalComment on above:Performed By: #### CMP, JENNIE, LIPA #### [facility] [address] [place] [address] Dr. Manuel Fletcher #0.03 10e3/ulNormal0.00-0.03The [facility] HospitalComment on above:Performed By: #### CMP, JENNIE, LIPA #### [facility] [address] [place] [address] Dr. Manuel Fletcher %0.3 %Normal0.0-0.5The [facility] HospitalComment on above: Performed By: #### CMP, JENNIE, LIPA #### [facility] [address] [place] [address] Dr. Manuel Mac #2.8 103/ulNormal1.2-3.8The [facility] HospitalComment on above:Performed By: #### CMP, JENNIE, LIPA #### [facility] [address] [place] [address] Dr. Manuel Delgadomphocytes/100 WBC (Bld)29.9 %Beyrnd03.5-60.0The [facility] HospitalComment on above:Performed By: #### CMP, JENNIE, LIPA #### [facility] [address] [place] [address] Dr. Manuel WilhelmUAL DIFF REQNONormalThe [facility] HospitalComment on above: Performed By: #### CMP, JENNIE, LIPA #### [facility] [address] [place] [address] Dr. Manuel Hu (RBC) [Entitic mass]32.2 mzSzqppe48.7-34.0The [facility] HospitalComment on above:Performed By: #### CMP, JENNIE, LIPA #### [facility] [address] [place] [address] Dr. Manuel Hu (RBC) [Mass/Vol]32.8 g/oUStshjh54.9-35.2The [facility] HospitalComment on above:Performed By: #### CMP, JENNIE, LIPA #### [facility] [address] [place] [address] Dr. Manuel Hu (RBC) [Entitic vol]98.0 kMRbhpou71.0-99.0The [facility] HospitalComment on above:Performed By: #### CMP, JENNIE, LIPA #### [facility] [address] [place] [address] Dr. Manuel Keith #0.7 103/ulNormal0.3-0.8The [facility] HospitalComment on above:Performed By: #### CMP, JENNIE, LIPA #### [facility] [address] [place] [address] Dr. Manuel Suarezocytes/100 WBC (Bld)7.7 %Normal1.7-12.0The [facility] Comment on above:Performed By: #### CMP, JENNIE, LIPA #### [facility] [address] [place] [address] Dr. Manuel Hurtado #5.5 103/ulNormal1.4-6.5The [facility] HospitalComment on above:Performed By: #### CMP, JENNIE, LIPA #### [facility] [address] [place] [address] Dr. Mnauel Rebollarutrophils/100 WBC (Bld)58.5 %Ubmmic14.0-75.0The [facility] HospitalComment on above:Performed By: #### CMP, JENNIE, LIPA #### [facility] [address] [place] [address] Dr. Yilan ChangPlatelet mean volume (Bld) [Entitic vol]11.7 fLNormal9.5-13.5The [facility] HospitalComment on above:Performed By: #### JENNIE RAMOS LIPA #### [facility] [address] [address] [address] Manuel SandhuPLT301 103/twXydurl215-043Woz [facility] HospitalComment on above: Performed By: #### JENNIE RAMOS LIPA #### [facility] [address] [address] [address] Manuel SandhuRBC3.98 106/ulCritically low4.20-5.40The [facility] HospitalComment on above:Performed By: #### JENNIE RAMOS LIPA #### [facility] [address] [place] [address] Dr. Manuel SandhuWBC9.3 103/ulNormal4.0-11.0The [facility] HospitalComment on above: Performed By: #### JENNIE RAMOS LIPA #### [facility] [address] [place] [address] Dr. Manuel SandhuCT ABD/PELVIS WO CONon 88-99-5950OZ ABD/PELVIS WO CONEXAMINATION: CT ABD/PELVIS WO CON, [...] Electronically authenticated by: HARMONY HARRELL Date: 2021-11-16 19:55NormGood Samaritan Hospital URINE PROFILEon 53-18-9922Efqdbabiv Ql (U)NegativeNormal NEGATIVESumma HealthComment on above:Performed By: #### CMP, JENNIE, LIPA #### [facility] [address] [address] [address] Manuel Eid (U)CLEARNormalCLEARSumma HealthComment on above: Performed By: #### CMP, JENNIE, LIPA #### [facility] [address] [place], [place] [address] Dr. Manuel Gautam (U)LT. YELLOWNormalYELLOWKettering Health Washington Townshipment on above:Performed By: #### CMP, JENNIE, LIPA #### [facility] [address] [address] [address] Manuel Hernandez micrscopic examination will be performed if indicated. NormalKettering Health Washington Townshipment on above:Performed By: #### CMP, JENNIE, LIPA #### [facility] [address] [address] [address] Manuel SandhuGlucose Ql (U)NegativeNormalNEGATIVESumma HealthComment on above:Performed By: #### CMP, JENNIE, LIPA #### [facility] [address] [address] [address] Manuel SandhuHemoglobin Ql (U)NegativeNormalNEGUniversity Hospitals Sam[facility] Comment on above:Performed By: #### CMP, JENNIE, LIPA #### [facility] [address] [address] [address] Manuel SandhuKetones Ql (U)NegativeNormalNEGATIVESumma HealthComment on above:Performed By: #### CMP, JENNIE, LIPA #### [facility] [address] [address] [address] Manuel SandhuLEUKOCYTESNegativeNormalNEGATIVESumma HealthCompine rest [facility] mental health services on above:Performed By: #### CMP, JENNIE, LIPA #### [facility] [address] [address] [address] Manuel SandhuNitrite Ql (U)NegativeNormalNEGATIVESumma HealthComment on above:Performed By: #### CMP, JENNIE, LIPA #### [facility] [address] [address] [address] Manuel SandhupH (U)7.0 [pH]Normal5-9[facility] on above: Performed By: #### CMP, JENNIE, LIPA #### [facility] [address] [address] [address] Manuel SandhuSPEC GRAVITY<=1.979Vxeijjrk1.005-<=1.025[facility] Comment on above:Performed By: #### CMP, JENNIE, LIPA #### [facility] [address] [place] [address] Dr. Manuel Tinsley PROTEINNegativeNormalNEGATIVE/ TRACEThe [facility] Comment on above:Performed By: #### CMP, JENNIE, LIPA #### [facility] [address] [place] [address] Dr. Manuel SandhuUR MICRO INDNOT INDICATEDNormalThe [facility] HospitalComment on above:Performed By: #### CMP, JENNIE, LIPA #### [facility] [address] [place] [address] Dr. Manuel SandhuUrobilinogen Qn (U)0.2 {Lucila'U}/dLNormal0.2 - 1.0The [facility] HospitalComment on above:Performed By: #### CMP, JENNIE, LIPA #### [facility] [address] [place] [address] Dr. Manuel SandhuLIPASEon 19-58-5974Ocxvop [Catalytic activity/Vol]78.0 U/LNormal 23.0-300.0The [facility] HospitalComment on above:Performed By: #### CMP, JENNIE, LIPA #### [facility] [address] [place] [address] Dr. Manuel SandhuPREGNANCY URon 31-89-4904GQZPNFHRH, QUALNegativeNormalNEGATIVEThe [facility] HospitalComment on above:Performed By: #### CMP, JENNIE, LIPA #### [facility] [address] [place] [address] Dr. Manuel SandhuPROF 14(COMP METB)on 33-29-7010Hpngwke [Mass/Vol]4.1 g/dLNormal 3.5-5.0The [facility] HospitalComment on above:Performed By: #### CMP, JENNIE, LIPA #### [facility] [address] [place] [address] Dr. Manuel SandhuAlbumin/Globulin [Mass ratio]1.1 {ratio}NormalThe [facility] HospitalComment on above:Performed By: #### CMP, JENNIE, LIPA #### [facility] [address] [address] [address] Manuel Yu [Catalytic activity/Vol]102 U/MDavblm57-987Ucg [facility] HospitalComment on above:Performed By: #### CMP, JENNIE, LIPA #### [facility] [address] [address] [address] Manuel Montana [Catalytic activity/Vol]39 U/LNormal9-52[facility] Comment on above:Performed By: #### CMP, JENNIE, LIPA #### [facility] [address] [address] [address] Manuel Torreson gap [Moles/Vol]11.5 mmol/LNormalThe [facility] Comment on above:Performed By: #### CMP, JENNIE, LIPA #### [facility] [address] [address] [address] Manuel SandhuAST [Catalytic activity/Vol]28 U/FPxzwmg70-45Dnw [facility] HospitalComment on above:Performed By: #### CMP, JENNIE, LIPA #### [facility] [address] [address] [address] Manuel SandhuBilirubin [Mass/Vol]0.2 mg/dLNormal0.2-1.3TSamaritan North Health Center Comment on above:Performed By: #### CMP, JENNIE, LIPA #### [facility] [address] [address] [address] Manuel SandhuCalcium [Mass/Vol]9.1 mg/dLNormal8.4-10.2[facility] Comment on above:Performed By: #### CMP, JENNIE, LIPA #### [facility] [address] [address] [address] Manuel SandhuChloride [Moles/Vol]105 mmol/LAcjtio88-591Nxn [facility] Comment on above:Performed By: #### CMP, JENNIE, LIPA #### [facility] [address] [address] [address] Manuel SandhuCO2 [Moles/Vol]25.0 mmol/UCyufok83.0-30.0The [facility] Comment on above:Performed By: #### CMP, JENNIE, LIPA #### [facility] [address] [place] [address] Dr. Manuel SandhuCreatinine [Mass/Vol]0.77 mg/dLNormal0.52-1.04Sum[facility] HealthComment on above:Performed By: #### CMP, JENNIE, LIPA #### [facility] [address] [place] [address] Dr. Manuel GonzalesGFR-AF MACEDONIAN>60Normal>=60The [facility] HospitalComment on above:Performed By: #### CMP, JENNIE, LIPA #### [facility] [address] [place] [address] Dr. Manuel Jiménez-NON AF MACEDONIAN>60Normal>=60The [facility] HospitalComment on above:Performed By: #### CMP, JENNIE, LIPA #### [facility] [address] [place] [address] Dr. Manuel SandhuGlobulin (S) [Mass/Vol]3.8 g/dLNormalThe [facility] HospitalComment on above:Performed By: #### CMP, JENNIE, LIPA #### [facility] [address] [place] [address] Dr. Manuel SandhuGlucose [Mass/Vol]85 mg/zNHixswy72-079WopSumma Health Comment on above:Performed By: #### CMP, JENNIE, LIPA #### [facility] [address] [place] [address] Dr. Manuel SandhuPotassium [Moles/Vol]3.5 mmol/LNormal3.4-5.0[facility] Comment on above:Performed By: #### CMP, JENNIE, LIPA #### [facility] Laboratory [address] [place] [address] Dr. Manuel SandhuProtein [Mass/Vol]7.9 g/dLNormal6.1-8.2[facility] Comment on above:Performed By: #### CMP, JENNIE, LIPA #### [facility] Laboratory [address] [place] [address] Dr. Manuel SandhuSodium [Moles/Vol]138 mmol/JVbnqla678-523Ggf [facility] Comment on above:Performed By: #### JENNIE RAMOS LIPA #### [facility] Laboratory [address] [address] [address] Manuel Ramirez nitrogen [Mass/Vol]18.0 mg/dLCritically high7.0-17.0The [facility] HospitalComment on above:Performed By: #### JENNIE RAMOS LIPA #### [facility] Laboratory [address] [address] [address] Manuel Ramirez nitrogen/Creatinine [Mass ratio]23.4 mg/mgNormalThe [facility] HospitalComment on above:Performed By: #### JENNIE RAMOS LIPA #### [facility] Laboratory [address] [address] [address] Manuel SandhuCT ABDOMEN PELVIS W IV [...] free fluid in thepelvis, which could be physiologic.8thBridge Phone: eXAMINATION: CT OF THE ABDOMEN AND [...] noted thickened proximal jejunal loops are mildly i mproved. Subjacent mesenteric stranding is partially improved as well. The previously seen fluid collection adjacent to proximal jejunal loops is no longer identified. There is no abnormal bowel distention. There are some mildly prominent mesenteric lymph nodes in this location, which have improvedas well. No focal pericolonic inflammation. No free air. Appendix is not seen. There is a small amount of free fluid in the pelvis. Pelvis: Urinary bladder is unremarkable. Uterus and adnexal structures are within normal limits for the patient's age. No pelvic lymphadenopathy. Peritoneum/Retroperitoneum: Abdominal aorta is normal in caliber. No retroperitoneal lymphadenopathy. Bones/Soft Tissues:There is mild stranding in the midline and left upper abdominal wall subcutaneous fat. No fluid collection or gas in the subcutaneous fat. No acute or suspicious osseous abnormality. 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 [facility] Phone: [facility] Phone: basic Metabolic Panel w/ Reflex to MGOrdered By: Ruiz Joel on [id number] gap [Moles/Vol]15 mmol/L9 - 17 mmol/LMi-Human Patientsy [employer] Phone: calcium [Mass/Vol]8.5 mg/dLLow8.6 - 10.4 mg/dLToledo HospitalBambuser Phone: chloride [Moles/Vol]107 mmol/L98 - 107 mmol/LMG[employer] Phone: cO2 [Moles/Vol]16 mmol/LLow20 - 31 mmol/LMG[employer] Phone: creatinine [Mass/Vol]0.36 mg/dLLow0.50 - 0.90 mg/dL [facility] Phone: GFR >60>60 mL/minToledo HospitalBambuser Phone: GFR Non->60>60 mL/minToledo HospitalBambuser Phone: GFR/1.73 sq M.predicted MDRD (S/P/Bld) [Vol rate/Area] [employer] Phone: comment on above:Average GFR for 30-39 years old: 107 mL/min/1.73sq m Chronic Kidney Disease: <60 mL/min/1.73sq m Kidney failure: <15 mL/min/1.73sq m eGFR calculated using average adult body mass. Additional eGFR calculator available at: http://www.[employer]com/multiple_crcl_2012.htm GFR/1.73 sq M.predicted MDRD (S/P/Bld) [Vol rate/Area]NOT REPORTEDToledo HospitalBambuser Phone: Glucose [Mass/Vol]79 mg/dL70 - 99 mg/dLToledo HospitalBambuser Phone: Interpretation and review of laboratory results AbnormalMerBambuser Phone: potassium [Moles/Vol]3.7 mmol/L3.7 - 5.3 mmol/LMcleveland clinic hillcrest hospitaly [facility] Work Phone: sodium [Moles/Vol]138 mmol/L135 - 144 mmol/LMcleveland clinic hillcrest hospitaly [facility] Work Phone: Urea nitrogen (BldV) [Mass/Vol]2 mg/dLLow6 - 20 mg/dL [facility] Phone: Urea nitrogen/Creatinine (Bld) [Mass ratio]NOT REPORTEDToledo HospitalBambuser Phone: [facility] Phone: cBC WITH AUTO DIFFERENTIALOrdered By: Ruiz Joel on [phone] Eos #0.28[facility] Phone: absolute Immature Granulocyte0.06[facility] Phone: absolute Lymph #1.62[facility] Phone: absolute [place] #1.46HighToledo HospitalBambuser Phone: basophils (Bld) [#/Vol]0.04 10*3/uLToledo HospitalBambuser Phone: basophils/100 WBC (Bld)0 %0 - 2 %8[facility] Phone: differential TypeNOT REPORTEDToledo HospitalBambuser Phone: eosinophils/100 WBC (Bld)3 %1 - 4 %[facility] Phone: Hematocrit (Bld) [Volume fraction]33.7 %Low36.3 - 47.1 %[facility] Phone: Hemoglobin.gastrointestinal spec 1 Ql (Stl)10.3 g/dL Low11.9 - 15.1 g/dLToledo HospitalBambuser Phone: Immature granulocytes/100 WBC (Bld)1 %Vuri7EvdrsBambuser Phone: Interpretation and review of laboratory results AbnormalToledo HospitalBambuser Phone: Lymphocytes/100 WBC (Bld)14 %Low24 - 43 %8[facility] Phone: MCH (RBC) [Entitic mass]29.9 pg25.2 - 33.5 pgToledo HospitalBambuser Phone: MCHC (RBC) [Mass/Vol]30.6 g/dL28.4 - 34.8 g/dLToledo HospitalBambuser Phone: MCV (RBC) [Entitic vol]98.0 fL82.6 - 102.9 fL8thBridge Phone: Monocytes/100 WBC (Bld)13 %High3 - 12 %8[facility] Phone: NRBC Automated0.00.0 per 100 WBCToledo HospitalBambuser Phone: platelet distribution width (Bld) [Ratio]13.4 %11.8 - 14.4 %8[facility]Bridge Phone: platelet EstimateNOT REPORTEDToledo HospitalBambuser Phone: Tlatelet mean volume (Bld) [Entitic vol]11.6 fL8.1 - 13.5 fLToledo HospitalBambuser Phone: Platelets (Bld) [#/Vol]392 10*3/uL8thBridge Phone: [phone] (Bld) [#/Vol]3.44 10*6/uLLow3.95 - 5.11 m/[employer]Me Phone: RBC (Bld) [#/Vol]NOT REPORTEDToledo HospitalBambuser Phone: Segmented neutrophils/100 WBC (Bld)69 %High36 - 65 % 8[facility] Phone: segs Absolute7.88[facility] Phone: WBC (Bld) [#/Vol]11.3 10*3/uLToledo HospitalBambuser Phone: WBC (Bld) [#/Vol]NOT REPORTEDToledo HospitalBambuser Phone: [facility] Phone: basic Metabolic Panel w/ Reflex to MGOrdered By: Nicolasa Le on [id number] gap [Moles/Vol]17 mmol/L9 - 17 mmol/LMi-Human Patientsy [employer] Phone: calcium [Mass/Vol]8.7 mg/dL8.6 - 10.4 mg/dLToledo HospitalBambuser Phone: chloride [Moles/Vol]105 mmol/L98 - 107 mmol/LMercy [employer] Phone: cO2 [Moles/Vol]15 mmol/LLow20 - 31 mmol/LMG[employer] Phone: creatinine [Mass/Vol]0.36 mg/dLLow0.50 - 0.90 mg/dL [facility] Phone: GFR >60>60 mL/minToledo HospitalBambuser Phone: GFR Non->60>60 mL/minToledo HospitalBambuser Phone: GFR/1.73 sq M.predicted MDRD (S/P/Bld) [Vol rate/Area] [facility] Phone: comment on above:Average GFR for 30-39 years old: 107 mL/min/1.73sq m Chronic Kidney Disease: <60 mL/min/1.73sq m Kidney failure: <15 mL/min/1.73sq m eGFR calculated using average adult body mass. Additional eGFR calculator available at: http://www.[employer]/multiple_crcl_2012.htm GFR/1.73 sq M.predicted MDRD (S/P/Bld) [Vol rate/Area]NOT REPORTEDToledo HospitalBambuser Phone: Glucose [Mass/Vol]78 mg/dL70 - 99 mg/dLToledo HospitalBambuser Phone: Interpretation and review of laboratory results AbnormalToledo HospitalBambuser Phone: potassium [Moles/Vol]3.8 mmol/L3.7 - 5.3 mmol/LMcleveland clinic hillcrest hospitaly [facility] Work Phone: sodium [Moles/Vol]137 mmol/L135 - 144 mmol/LMcleveland clinic hillcrest hospitaly [facility] Work Phone: Urea nitrogen (BldV) [Mass/Vol]3 mg/dLLow6 - 20 mg/dL [facility] Phone: Urea nitrogen/Creatinine (Bld) [Mass ratio]NOT REPORTEDToledo HospitalBambuser Phone: [facility] Phone: cBC auto differentialOrdered By: Nicolasa Le on [id number] Eos #0.30[facility] Phone: absolute Immature Granulocyte0.15[facility] Phone: absolute Lymph #2.10[facility] Phone: absolute [place] #2.25HighToledo HospitalBambuser Phone: basophils (Bld) [#/Vol]0.00 10*3/uLToledo HospitalBambuser Phone: basophils/100 WBC (Bld)0 %0 - 2 %8[facility]Bridge Phone: differential TypeNOT REPORTEDToledo HospitalBambuser Phone: eosinophils/100 WBC (Bld)2 %1 - 4 %[facility] Phone: Hematocrit (Bld) [Volume fraction]35.7 %Low36.3 - 47.1 %8[facility] Phone: Hemoglobin.gastrointestinal spec 1 Ql (Stl)10.8 g/dL Low11.9 - 15.1 g/dLToledo HospitalBambuser Phone: Immature granulocytes/100 WBC (Bld)1 %Ikgf4ZgasnBambuser Phone: Interpretation and review of laboratory results AbnormalToledo HospitalBambuser Phone: lymphocytes/100 WBC (Bld)14 %Low24 - 43 %8[facility]Bridge Phone: MCH (RBC) [Entitic mass]29.9 pg25.2 - 33.5 pgToledo HospitalBambuser Phone: MCHC (RBC) [Mass/Vol]30.3 g/dL28.4 - 34.8 g/dLToledo HospitalBambuser Phone: MCV (RBC) [Entitic vol]98.9 fL82.6 - 102.9 fLToledo HospitalBambuser Phone: Monocytes/100 WBC (Bld)15 %High3 - 12 %8[facility] Phone: Morphology Celso (Bld) [Interp]NormalToledo HospitalBambuser Phone: NRBC Automated0.00.0 per 100 WBCToledo HospitalBambuser Phone: platelet distribution width (Bld) [Ratio]13.5 %11.8 - 14.4 %8[facility]Bridge Phone: platelet EstimateNOT REPORTEDToledo HospitalBambuser Phone: platelet mean volume (Bld) [Entitic vol]11.6 fL8.1 - 13.5 fLToledo HospitalBambuser Phone: platelets (Bld) [#/Vol]375 10*3/uL8thBridge Phone: RBC (Bld) [#/Vol]3.61 10*6/uLLow3.95 - 5.11 m/uLMultiwave Photonics Work Phone: RBC (Bld) [#/Vol]NOT REPORTED8thBridge Phone: Eegmented neutrophils/100 WBC (Bld)68 %High36 - 65 % [facility] Phone: segs Vkvasbmp26.20High8thBridge Phone: WBC (Bld) [#/Vol]15.0 10*3/uLHigh8thBridge Phone: WBC (Bld) [#/Vol]NOT REPORTED8thBridge Phone: [facility] Phone: cBC Auto DifferentialOrdered By: David Nash on [id number] Eos #0.21[facility] Phone: absolute Immature Granulocyte0.04[facility] Phone: absolute Lymph #1.88[facility] Phone: absolute [place] #1.43High8thBridge Phone: basophils (Bld) [#/Vol]0.04 10*3/uL8thBridge Phone: basophils/100 WBC (Bld)0 %0 - 2 %8[facility] Phone: differential TypeNOT REPORTED8thBridge Phone: eosinophils/100 WBC (Bld)2 %1 - 4 %8[facility] Phone: Hematocrit (Bld) [Volume fraction]36.2 %Low36.3 - 47.1 %[facility] Phone: Hemoglobin.gastrointestinal spec 1 Ql (Stl)11.7 g/dL Low11.9 - 15.1 g/dLToledo HospitalBambuser Phone: Immature granulocytes/100 WBC (Bld)0 %0T[facility] HospitalB[facility] Phone: Interpretation and review of laboratory results AbnormalToledo HospitalBambuser Phone: lymphocytes/100 WBC (Bld)15 %Low24 - 43 %8[facility]Bridge Phone: MCH (RBC) [Entitic mass]30.3 pg25.2 - 33.5 pgToledo HospitalBambuser Phone: MCHC (RBC) [Mass/Vol]32.3 g/dL28.4 - 34.8 g/dLToledo HospitalBambuser Phone: MCV (RBC) [Entitic vol]93.8 fL82.6 - 102.9 fLToledo HospitalBambuser Phone: Monocytes/100 WBC (Bld)12 %3 - 12 %[facility] Phone: NRBC Automated0.00.0 per 100 WBCToledo HospitalBambuser Phone: platelet distribution width (Bld) [Ratio]13.2 %11.8 - 14.4 %[facility]Bridge Phone: Ulatelet EstimateNOT REPORTEDToledo HospitalBambuser Phone: Flatelet mean volume (Bld) [Entitic vol]11.6 fL8.1 - 13.5 fLToledo HospitalBambuser Phone: [phone] (Bld) [#/Vol]414 10*3/uL8thBridge Phone: RBC (Bld) [#/Vol]3.86 10*6/uLLow3.95 - 5.11 m/uL8thBridge Phone: RBC (Bld) [#/Vol]NOT REPORTED8thBridge Phone: segmented neutrophils/100 WBC (Bld)71 %High36 - 65 % [facility] Phone: segs Absolute8.75High8thBridge Phone: WBC (Bld) [#/Vol]12.4 10*3/uLPreston Memorial Hospital8thBridge Phone: WBC (Bld) [#/Vol]NOT REPORTED8thBridge Phone: [phone] Phone: cT ABDOMEN PELVIS W IV CONTRAST Additional Contrast? OralOrdered By: David Nash on [id number] changes were noted from partial gastrectomy. Sigmoid [...] 1 anterolisthesis and marked decrease in disc height.8[facility]Bridge Phone: eXAMINATION: CT OF THE ABDOMEN AND [...] disc height was noted at the L5-S1 disc.[employer] Work Phone: emaribell, jim Incoming Radiant Results From Mumart/Lizhi - 01/30/2021 12:20 PM EDT EXAMINATION: CT [...] anterolisthesis and marked decrease in disc height. [facility]Bridge Phone: [phone] Phone: comprehensive Metabolic Panel w/ Reflex to MGOrdered By: David Nash on [id number] [Mass/Vol]3.6 g/dL3.5 - 5.2 g/dL8thBridge Phone: albumin/Globulin [Mass ratio]1.0 {ratio}8[facility] Phone: aLP (Bld) [Catalytic activity/Vol]107 U/LHigh35 - 104 U/LM[employer] Phone: aLT [Catalytic activity/Vol]33 U/L5 - 33 U/LMG[employer] Phone: anion gap [Moles/Vol]17 mmol/L9 - 17 mmol/LM[employer] Phone: aST [Catalytic activity/Vol]26 U/L<32MerBambuser Phone: bilirubin [Mass/Vol]0.25 mg/dLLow0.3 - 1.2 mg/dL8thBridge Phone: calcium [Mass/Vol]9.5 mg/dL8.6 - 10.4 mg/dL8thBridge Phone: chloride [Moles/Vol]104 mmol/L98 - 107 mmol/LMercy [employer] Phone: cO2 [Moles/Vol]19 mmol/LLow20 - 31 mmol/LMsalem regional medical center [employer] Phone: creatinine [Mass/Vol]0.47 mg/dLLow0.50 - 0.90 mg/dL [facility] Phone: Free PSA/Total PSA [Mass fraction]7.3 g/dL6.4 - 8.3 g/dLToledo HospitalBambuser Phone: GFR >60>60 mL/minToledo HospitalBambuser Phone: GFR Non->60>60 mL/minToledo HospitalBambuser Phone: Glucose [Mass/Vol]79 mg/dL70 - 99 mg/dLToledo HospitalBambuser Phone: Interpretation and review of laboratory results AbnormalToledo HospitalBambuser Phone: potassium [Moles/Vol]3.8 mmol/L3.7 - 5.3 mmol/LMsalem regional medical center [employer] Phone: sodium [Moles/Vol]140 mmol/L135 - 144 mmol/LMsalem regional medical center [employer] Phone: Urea nitrogen (BldV) [Mass/Vol]5 mg/dLLow6 - 20 mg/dL [facility] [employer] Phone: Urea nitrogen/Creatinine (Bld) [Mass ratio]11[facility] Phone: HCK Qualitative, SerumOrdered By: Noreen Mckeon on [id number] QualNegativeNEGATIVEToledo HospitalBambuser Phone: comment on above:Specimens with hCG levels near the threshold of the test (25 mIU/mL) may give a negative or indeterminate result. In such cases, another test should be performed with a new specimen in 48-72 hours. If early is suspected clinically in this setting, correlation with quantitative serum b-hCG level is suggested. [employer] has confirmed the use of plasma for this test. This has not been cleared or approved by the U.S. Food and Drug Administration. The FDA has determined that such clearance is not necessary. 8[facility] Phone: laboratory - Chemistry and Chemistry - challenge Ordered By: David Nash on [id number]/1.73 sq M.predicted MDRD (S/P/Bld) [Vol rate/Area][facility] Phone: comment on above:Average GFR for 30-39 years old: 107 mL/min/1.73sq m Chronic Kidney Disease: <60 mL/min/1.73sq m Kidney failure: <15 mL/min/1.73sq m eGFR calculated using average adult body mass. Additional eGFR calculator available at: http://www.[employer]/Indiewalls_crcl_2012.htm Stage 1: Some kidney damage normal GFR Stage 2: Mild kidney damage GFR 60-89 Stage 3: Moderate kidney damage GFR 30-59 Stage 4: Severe kidney damage GFR 15-29 Stage 5: Severe kidney damage GFR <15 ESRD - chronic treatment by dialysis or transplant Lactic AcidOrdered By: David Nash on 90-77-1400Lljmpxh [Moles/Vol]0.6 mmol/L0.5 - 2.2 mmol/LMercy [facility] Work Phone: [facility] Work Phone: lipaseOrdered By: David Nash on [id number] [Catalytic activity/Vol]30 U/L13 - 60 U/LMercy [facility] Work Phone: Microscopic UrinalysisOrdered By: David Nash on 01-30-2021-8thBridge Phone: amorphous, UANOT REPORTEDNoneMey [facility] Work Phone: bacteria, UATRACEAbnormalNoneMey Health Work Phone: casts UANOT REPORTED/LPFMercy Health Work Phone: crystals, UANOT REPORTEDNone /HPFMercy Health Work Phone: epithelial Cells UA2 TO 5[facility] Work Phone: Interpretation and review of laboratory results AbnormalMer Health Work Phone: Mucus, UANOT REPORTEDNoneMercy Health Work Phone: Other Observations UANOT REPORTEDNOT REQ.[facility] Work Phone: rBC, UA0 TO 2[facility] Work Phone: renal Epithelial, UANOT REPORTED0 /HPFMercy Health Work Phone: Trichomonas, UANOT REPORTEDNoneMercy Health Work Phone: WBC, UA2 TO 5[facility] Work Phone: Yeast, UANOT REPORTEDNoneMey Health Work Phone: [facility] Work Phone: No Panel InformationOrdered By: David Nash on [id number] [facility] Work Phone: [phone]-IRAEslneto By: Noreen Mckeon on [id number] Coag (Bld) [Relative time]1.1 {INR}[facility] Work Phone: comment on above: Therapeutic Range: Moderate Anticoagulant Intensity: INR = 2.0-3.0 High Anticoagulant Intensity: INR = 2.5-3.5 PT Coag (PPP) [Time]11.4 sMcleveland clinic hillcrest hospitaly Health Work Phone: [facility] Work Phone: Urinalysis, reflex to microscopicOrdered By: David Nash on 25-10-2604Gyauoasek UrineSMALLAbnormalNEGATIVEUniversity Hospitals Health System [facility] Work Phone: color, UAYELLOWYELLOWUniversity Hospitals Health System [facility] Work Phone: Glucose, UrNegativeNEGATIVEUniversity Hospitals Health System [facility] Work Phone: Interpretation and review of laboratory results AbnormalFlower Hospital Work Phone: Ketones Ql (U)4+AbnormalNEGATIVEFlower Hospital Work Phone: leukocyte esterase Test strip Ql (U)NegativeNEGATIVE [facility] Work Phone: Nitrite, UrineNegativeNEGATIVEFlower Hospital Work Phone: pH, UA5.5MerFormerly [facility] Work Phone: protein, UANegativeNEGATIVEFlower Hospital Work Phone: specific Clifford, UA<1.005LowFlower Hospital Work Phone: Turbidity UACLEARCLEARFlower Hospital Work Phone: Urinalysis CommentsNOT REPORTEDMer [facility] Work Phone: Urine HgbNegativeNEGATIVEFlower Hospital Work Phone: Urobilinogen, UrineNormalNormalFlower Hospital Work Phone: [facility]Former[facility] Work Phone: basic Metabolic PanelOrdered By: Gamaliel Vickers on 30-39-2495Cphec gap [Moles/Vol]11 mmol/L9 - 17 mmol/LMsalem regional medical center Health Work Phone: calcium [Mass/Vol]9.1 mg/dL8.6 - 10.4 mg/dLFlower Hospital Work Phone: chloride [Moles/Vol]105 mmol/L98 - 107 mmol/LMercy Health Work Phone: cO2 [Moles/Vol]23 mmol/L20 - 31 mmol/LMercy Health Work Phone: creatinine [Mass/Vol]0.57 mg/dL0.50 - 0.90 mg/dLToledo HospitalBambuser Phone: GFR >60>60 mL/minToledo HospitalBambuser Phone: GFR Non->60>60 mL/minToledo HospitalBambuser Phone: GFR/1.73 sq M.predicted MDRD (S/P/Bld) [Vol rate/Area] [facility]Bridge Phone: comment on above:Average GFR for 30-39 years old: 107 mL/min/1.73sq m Chronic Kidney Disease: <60 mL/min/1.73sq m Kidney failure: <15 mL/min/1.73sq m eGFR calculated using average adult body mass. Additional eGFR calculator available at: http://www.[employer]/multiple_crcl_2012.htm GFR/1.73 sq M.predicted MDRD (S/P/Bld) [Vol rate/Area]NOT REPORTEDToledo HospitalBambuser Phone: Glucose [Mass/Vol]106 mg/vVUter78 - 99 mg/dLToledo HospitalBambuser Phone: Interpretation and review of laboratory results AbnormalToledo HospitalBambuser Phone: potassium [Moles/Vol]3.7 mmol/L3.7 - 5.3 mmol/LMercy [employer] Phone: sodium [Moles/Vol]139 mmol/L135 - 144 mmol/LMcleveland clinic hillcrest hospitaly [employer] Phone: Urea nitrogen (BldV) [Mass/Vol]7 mg/dL6 - 20 mg/dL [facility] Phone: Urea nitrogen/Creatinine (Bld) [Mass ratio]NOT REPORTEDToledo HospitalBambuser Phone: cBCOrdered By: Gamaliel Vickers on 01-08-2021 Hematocrit (Bld) [Volume fraction]38.0 %36.3 - 47.1 %8[facility] Phone: Hemoglobin.gastrointestinal spec 1 Ql (Stl)12.2 g/dL 11.9 - 15.1 g/dLToledo HospitalBambuser Phone: Interpretation and review of laboratory results AbnormalToledo HospitalBambuser Phone: MCH (RBC) [Entitic mass]30.4 pg25.2 - 33.5 pgToledo HospitalBambuser Phone: MCHC (RBC) [Mass/Vol]32.1 g/dL28.4 - 34.8 g/dLToledo HospitalBambuser Phone: MCV (RBC) [Entitic vol]94.8 fL82.6 - 102.9 fL8thBridge Phone: NRBC Automated0.00.0 per 100 WBCToledo HospitalBambuser Phone: platelet distribution width (Bld) [Ratio]13.5 %11.8 - 14.4 %8thBridge Phone: platelet mean volume (Bld) [Entitic vol]11.4 fL8.1 - 13.5 fLToledo HospitalBambuser Phone: platelets (Bld) [#/Vol]304 10*3/uL8thBridge Phone: rBC (Bld) [#/Vol]4.01 10*6/uL3.95 - 5.11 m/8thBridge Phone: WBC (Bld) [#/Vol]18.0 10*3/uLBoston State HospitalBambuser Phone: [place] ESOPHAGRAMOrdered By: Gamaliel Vickers on 23-10-3611Vh evidence of postoperative leak.8[facility]Bridge Phone: eXAMINATION: SINGLE CONTRAST ESOPHAGRAM 01/08/2021 HISTORY: [...] abdominal KUB/radiographs to assess progression as clinically warranted.[facility] Phone: emaribell, Uriah Incoming Radiant Results From Mumart/Lizhi - 01/08/2021 12:29 PM EDT EXAMINATION: SINGLE [...] warranted. IMPRESSION: No evidence of postoperative leak. 8[facility]Bridge Phone: basic Metabolic PanelOrdered By: Gamaliel Vickers on [id number] gap [Moles/Vol]10 mmol/L9 - 17 mmol/LMi-Human Patientsy [facility] Work Phone: calcium [Mass/Vol]8.8 mg/dL8.6 - 10.4 mg/dL8thBridge Phone: chloride [Moles/Vol]105 mmol/L98 - 107 mmol/LMercy [employer] Phone: cO2 [Moles/Vol]20 mmol/L20 - 31 mmol/LMercy [employer] Phone: creatinine [Mass/Vol]0.68 mg/dL0.50 - 0.90 mg/dL8thBridge Phone: GFR >60>60 mL/min8thBridge Phone: GFR Non->60>60 mL/min8thBridge Phone: GFR/1.73 sq M.predicted MDRD (S/P/Bld) [Vol rate/Area] [facility] Phone: comment on above:Average GFR for 30-39 years old: 107 mL/min/1.73sq m Chronic Kidney Disease: <60 mL/min/1.73sq m Kidney failure: <15 mL/min/1.73sq m eGFR calculated using average adult body mass. Additional eGFR calculator available at: http://www.[employer]/multiple_crcl_2012.htm GFR/1.73 sq M.predicted MDRD (S/P/Bld) [Vol rate/Area]NOT REPORTEDToledo HospitalBambuser Phone: Glucose [Mass/Vol]215 mg/fZAgty13 - 99 mg/dLToledo HospitalBambuser Phone: Interpretation and review of laboratory results AbnormalToledo HospitalBambuser Phone: potassium [Moles/Vol]4.2 mmol/L3.7 - 5.3 mmol/LMcleveland clinic hillcrest hospitaly [employer] Phone: sodium [Moles/Vol]135 mmol/L135 - 144 mmol/LMercy [employer] Phone: Urea nitrogen (BldV) [Mass/Vol]14 mg/dL6 - 20 mg/dL [facility] Phone: Urea nitrogen/Creatinine (Bld) [Mass ratio]NOT REPORTEDToledo HospitalBambuser Phone: cBC without DiffOrdered By: Gamaliel Vickers on [id number] (Bld) [Volume fraction]38.3 %36.3 - 47.1 %8[facility] Phone: Hemoglobin.gastrointestinal spec 1 Ql (Stl)12.5 g/dL 11.9 - 15.1 g/dLToledo HospitalBambuser Phone: Interpretation and review of laboratory results AbnormalToledo HospitalBambuser Phone: MCH (RBC) [Entitic mass]30.9 pg25.2 - 33.5 pgToledo HospitalBambuser Phone: MCHC (RBC) [Mass/Vol]32.6 g/dL28.4 - 34.8 g/dLToledo HospitalBambuser Phone: MCV (RBC) [Entitic vol]94.8 fL82.6 - 102.9 fLToledo HospitalBambuser Phone: NRBC Automated0.00.0 per 100 WBCToledo HospitalBambuser Phone: platelet distribution width (Bld) [Ratio]13.4 %11.8 - 14.4 %8thBridge Phone: platelet mean volume (Bld) [Entitic vol]11.2 fL8.1 - 13.5 fLToledo HospitalBambuser Phone: platelets (Bld) [#/Vol]373 10*3/uLToledo HospitalBambuser Phone: RBC (Bld) [#/Vol]4.04 10*6/uL3.95 - 5.11 m/Guys MillsBambuser Phone: WBC (Bld) [#/Vol]24.9 10*3/uLHighToledo HospitalBambuser Phone: pOCT urine pregnancyOrdered By: Gamaliel Vickers on 46-04-1695Hfxo HCG ( test) Ql (U)NegativeNEGATIVEToledo HospitalBambuser Phone: comment on above:Specimens with hCG levels near the threshold of the test (25 mIU/mL) may give a negative or indeterminate result. In such cases, another test should be performed with a new specimen in 48-72 hours. If early is suspected clinically in this setting, correlation with quantitative serum b-hCG level is suggested. [id number]-CoV-2 (COVID-19) RNA JOSÉ MIGUEL+probe Ql (Unsp spec)Normal [facility] HospitalComment on above:Performed By: #### COVID #### [facility] [address] [place], [place] [id number] Internet Consultant: Wei Reyna MD [facility] [address] [place], [place] [id number] Internet Consultant: NOBLE Naylor-CoV-2 (COVID-19) RNA JOSÉ MIGUEL+probe Ql (Unsp spec)Not detectedNormalNOTDEMercy Memorial HospitalComment on above:Result Comment: The specimen is NEGATIVE for SARS-CoV-2, the novel coronavirus associated with COVID-19. A negative result does not rule out COVID-19. Heide SARS-CoV-2 for use on the Heide [employer] is a real-time RT-PCR test intended [...] this assay. Fact sheet for Healthcare Providers: https://www.fda.gov/media/208505/download Fact sheet for Patients: https://www.fda.gov/media/842087/download METHODOLOGY: RT-PCRPerformed By: #### COVID #### [facility] [address] [place], [place] [id number] Internet Consultant: Wei Reyna MD [facility] [address] [place] [address] Internet Consultant: KYLEE NaylorCoV-2on [id number]-CoV-2 (COVID-19) RNA JOSÉ MIGUEL+probe Ql (Unsp spec).NASOPHARYNGEAL SWABNormalBellevue Hospital Comment on above:Performed By: #### COVID #### [facility] [address] [place], [place] [id number] Internet Consultant: Wei Reyna MD [facility] [address] [place], [place] [id number] Internet Consultant: Harpal Adair MDNicotine, BloodOrdered [place]: [place] [address]-PQ-Nnzbryfa<2ng/mL[facility] Work Phone: cotinine<2ng/mL[facility] Work Phone: Nicotine<2ng/mL[facility] Work Phone: comment on above:(NOTE) Consistent with [...] developed and its performance characteristics determined by [employer]. It has not been cleared or approved by the US Food and Drug Administration. This test was performed in a CLIA certified laboratory and is intended for clinical purposes. Performed By: [employer] [address] [place] [address] Digester Operator Helper: Brissa Bonilla MD EKG 12 LeadOrdered By: Gamaliel Vickers on 16-56-7545Wcjpjy Wwtw51GZXCtxrj [facility] Work Phone: p Rmhf69przfaxySajeiAppBrick Phone: p-R Bkknovdk518 [facility] Work Phone: Q-T Ryghkzvo424 [facility] CityS[facility] Work Phone: QRS Lytgfdco21 [facility] Work Phone: QTc Calculation (Bazett)447 [facility] CityS[facility] Work Phone: P Bcoc4pilmbbrHlhnx Health Work Phone: T Dwxb0nipapbdUeprb Health Work Phone: Ventricular Vbcp79WASJebwn Health Work Phone: Normal sinus rhythm Normal ECG No previous ECGs availableToledo HospitalBambuser Phone: edi, Mhpn Incoming Ekg Results From [employer] - 12/25/2020 12:47 PM EDT Formatting of this note mightbe different from the original. Normal sinus rhythm Normal ECG No previous ECGs availableToledo HospitalBambuser Phone: aPTTOrdered By: Gamaliel Vickers on 79-98-1916hZXF Coag (Bld) [Time]23.1 [employer] Phone: comment on above: IV Heparin Therapy Range: 48.6-77.8 Basic Metabolic PanelOrdered By: Gamaliel Vickers on 71-74-8034Tbepf gap [Moles/Vol]10 mmol/L9 - 17 mmol/[employer] Work Phone: calcium [Mass/Vol]9.4 mg/dL8.6 - 10.4 mg/dLToledo HospitalBambuser Phone: chloride [Moles/Vol]106 mmol/L98 - 107 mmol/[employer] Work Phone: cO2 [Moles/Vol]23 mmol/L20 - 31 mmol/[employer] Work Phone: creatinine [Mass/Vol]0.56 mg/dL0.50 - 0.90 mg/dLToledo HospitalBambuser Phone: GFR >60>60 mL/minToledo HospitalBambuser Phone: GFR Non->60>60 mL/minToledo HospitalBambuser Phone: GFR/1.73 sq M.predicted MDRD (S/P/Bld) [Vol rate/Area] [employer] Phone: comment on above:Average GFR for 30-39 years old: 107 mL/min/1.73sq m Chronic Kidney Disease: <60 mL/min/1.73sq m Kidney failure: <15 mL/min/1.73sq m eGFR calculated using average adult body mass. Additional eGFR calculator available at: http://www.[employer]/multiple_crcl_2012.htm GFR/1.73 sq M.predicted MDRD (S/P/Bld) [Vol rate/Area]NOT REPORTEDToledo HospitalBambuser Phone: Glucose [Mass/Vol]86 mg/dL70 - 99 mg/dLToledo HospitalBambuser Phone: potassium [Moles/Vol]3.8 mmol/L3.7 - 5.3 mmol/LMGroom Energy Solutions Phone: sodium [Moles/Vol]139 mmol/L135 - 144 mmol/LMcleveland clinic hillcrest hospitalMediSafe Project Phone: Urea nitrogen (BldV) [Mass/Vol]12 mg/dL6 - 20 mg/dL [employer] Phone: Urea nitrogen/Creatinine (Bld) [Mass ratio]NOT REPORTEDToledo HospitalBambuser Phone: cBCOrdered By: Gamaliel Vickers on 12-24-2020 Hematocrit (Bld) [Volume fraction]41.2 %36.3 - 47.1 %[employer] Phone: Hemoglobin.gastrointestinal spec 1 Ql (Stl)13.4 g/dL 11.9 - 15.1 g/dLToledo HospitalBambuser Phone: MCH (RBC) [Entitic mass]30.5 pg25.2 - 33.5 pgToledo HospitalBambuser Phone: MCHC (RBC) [Mass/Vol]32.5 g/dL28.4 - 34.8 g/dLUniversity Hospitals Health System [employer] Phone: MCV (RBC) [Entitic vol]93.6 fL82.6 - 102.9 fLToledo HospitalBambuser Phone: NRBC Automated0.00.0 per 100 WBCToledo HospitalBambuser Phone: platelet distribution width (Bld) [Ratio]13.2 %11.8 - 14.4 %[facility] Hospital[facility] Project Phone: platelet mean volume (Bld) [Entitic vol]10.7 fL8.1 - 13.5 fLToledo HospitalBambuser Phone: platelets (Bld) [#/Vol]391 10*3/Gu[employer] MillsBambuser Phone: RBC (Bld) [#/Vol]4.40 10*6/uL3.95 - 5.11 m/[employer] MillsBambuser Phone: WBC (Bld) [#/Vol]8.5 10*3/[employer] MillsBambuser Phone: [phone]-ZWQFgerdse By: Gamaliel Vickers on 12-24-2020 INR Coag (Bld) [Relative time]0.9 {INR}[facility] HospitalMed[facility] Phone: comment on above: Therapeutic Range: Moderate Anticoagulant Intensity: INR = 2.0-3.0 High Anticoagulant Intensity: INR = 2.5-3.5 PT Coag (PPP) [Time]10 sMercMediSafe Project Phone: XR CHEST (2 VW)on 20-38-5437Qv acute cardiopulmonary findingsToledo HospitalBambuser Phone: eXAMINATION: TWO XRAY VIEWS OF THE CHEST 12/24/2020 11:24 am COMPARISON: None. HISTORY: ORDERING SYSTEM PROVIDED HISTORY: preop gastric bypass [employer] TECHNOLOGIST PROVIDED HISTORY: preop gastric bypass Tian [employer] Reason for Exam: no chest complaints FINDINGS: Normal cardiopericardial silhouette There are no significant mediastinal, pleural, parenchymal or osseous findingsToledo HospitalBambuser Phone: edi, [facility] Incoming Radiant Results From [employer] - 12/24/2020 11:30 AM EDT EXAMINATION: TWO XRAY VIEWS OF THE CHEST 12/24/2020 11:24 am COMPARISON: None. HISTORY: ORDERING SYSTEM PROVIDED HISTORY: preop gastric bypass [employer] TECHNOLOGIST PROVIDED HISTORY: preop gastric bypass Tian [employer] Y Reason for Exam: no chest complaints FINDINGS: Normal cardiopericardial silhouette There are no significant mediastinal, pleural, parenchymal or osseous findings IMPRESSION: No acute cardiopulmonary findings [facility] Phone: XR CHEST (2 VW)Ordered By: Gamaliel Vickers on 97-21-3836Tr acute cardiopulmonary findingsToledo HospitalBambuser Phone: eXAMINATION: TWO XRAY VIEWS OF THE CHEST 12/24/2020 11:24 am COMPARISON: None. HISTORY: ORDERING SYSTEM PROVIDED HISTORY: preop gastric bypass [employer] TECHNOLOGIST PROVIDED HISTORY: preop gastric bypass Tian En Y Reason for Exam: no chest complaints FINDINGS: Normal cardiopericardial silhouette There are no significant mediastinal, pleural, parenchymal or osseous findingsToledo HospitalBambuser Phone: edi, [employer] Incoming Radiant Results From [employer] - 12/24/2020 11:30 AM EDT EXAMINATION: TWO XRAY VIEWS OF THE CHEST 12/24/2020 11:24 am COMPARISON: None. HISTORY: ORDERING SYSTEM PROVIDED HISTORY: preop gastric bypass [employer] TECHNOLOGIST PROVIDED HISTORY: preop gastric bypass Tian En Y Reason for Exam: no chest complaints FINDINGS: Normal cardiopericardial silhouette There are no significant mediastinal, pleural, parenchymal or osseous findings IMPRESSION: No acute cardiopulmonary findings [employer] Phone: FL UGI W AIR CONTRASTon [id number] significant spontaneous GE reflux. Otherwise unremarkable double-contrast upper GI andesophagram.[employer] Phone: eXAMINATION: DOUBLE CONTRAST UPPER GI SERIES [...] present. The duodenal bulb and sweep are normal.[employer] Phone: edi, [facility] Incoming Radiant Results From [employer] - 11/01/2020 5:21 PM EST EXAMINATION: DOUBLE [...] Otherwise unremarkable double-contrast upper GI and esophagram. [employer] Phone: [phone]-CoV-2MercOr[facility] [place], [place] NOSH-WzS-4Exj DetectedNot Wilson [facility], KYComment on above: The specimen is NEGATIVE for SARS-CoV-2, the novel coronavirus associated with COVID-19. A negative result does not rule out COVID-19. Heide SARS-CoV-2 for use on the Heide [employer] is a real-time RT-PCR test intended [...] this assay. Fact sheet for Healthcare Providers: https://www.fda.gov/media/268051/download Fact sheet for Patients: https://www.fda.gov/media/562918/download METHODOLOGY: RT-PCR SARS-CoV-2, RapidC[facility].NASOPHARYNGEAL SWABBlanchard Valley Health System [facility], [place] Vital Signs Date TimeVital SignValuePerforming GcirpuzkyQlyqagbm51-89-6527 08:35-0471JzM9% (BldA) [Mass fraction]98 %Jennie Durand DO Work Phone: 1([phone] [place], [place] 4587910-16-2025 12:40-0400 Body ewpgxydawxs65.3 [degF]Jennie Durand DO Work Phone: 1(533)546-[address] [place], [place] 4587910-16-2025 12:40-0400 Diastolic blood mm[Hg]Jennie Durand DO Work Phone: 1(318)245-[address] [place], [place] 4587910-16-2025 12:40-0400 Heart rate60 /minJennie Duarnd [employer] Work Phone: 5(638)919-[address] [place], [place] 4587910-16-2025 12:40-0400 Respiratory rate18 /minJennie Ladarius [employer] Work Phone: [phone])[address]10-16-2025 12:40-0400 SaO2% (BldA) [Mass fraction]100 %Jennie Durand DO Work Phone: 1(761)[address]10-16-2025 12:40-0400 Systolic blood fnnfstma330 mm[Hg]Jennie Durand DO Work Phone: 1(095)[address] [place], [place] 6236610-16-2025 12:38-0400 Body estmmz632.18 cmAlouis Durand DO Work Phone: 1(023)[address] [place], [place] 6236610-16-2025 12:38-0400 Body nyrxec61 kgJennie Durand DO Work Phone: 1(655)[address] [place], [place] 6236610-16-2025 11:08-0400 Body .2 cmFredric Itzkowitz DO Work Phone: 1(866)[facility]84[facility] CenterShapcyjjcf37-60-9107 11:08-0400Body mass index (BMI) [Ratio]30.54 kg/b8Ehbeqzx Itzkowitz DO Work Phone: 1(108)[address] [place], [place] 9563810-16-2025 11:08-0400Body nxaroc26.45 kgFredric Itzkowitz DO Work Phone: 2(232)[address] [place], [place] 9563810-16-2025 11:08-0400Diastolic blood ajgpequq09 mm[Hg]Aaliyah Itzkowitz DO Work Phone: 1(405)[facility]10[facility] CenterPclchcfjjz08-84-4992 11:08-0400Systolic blood nusxflsd752 mm[Hg]Aaliyah Itzkowitz DO Work Phone: 5(874)[facility]87[facility] CenterAzwuwtvprm20-76-4853 10:55-0400Diastolic blood dofwkcnx49 mm[Hg]Jennie Durand DO Work Phone: 2(780)[address]09-16-2025 10:55-0400 Heart rate66 /minJennie Durand DO Work Phone: 3(786)[address]09-16-2025 10:55-0400 Respiratory rate16 /minJennie Hameede DO Work Phone: [phone])[address]09-16-2025 10:55-0400 SaO2% (BldA) [Mass fraction]99 %Jennie Durand DO Work Phone: 1(832)[address]09-16-2025 10:55-0400 Systolic blood wacksohu092 mm[Hg]Jennie Durand DO Work Phone: 1(113)[address] [place], [place] 6236609-16-2025 10:18-0400 Body .9 [degF]Jennie Durand DO Work Phone: 1(984)[address] [place], [place] 6236609-16-2025 09:53-0400 Inhaled oxygen flow rate8 L/minJennie Durand DO Work Phone: 7(947)[address] [place], [place] 6236609-16-2025 07:55-0400 Body gpehav667.18 cmAlouis Durand DO Work Phone: 7(992)[address] [place], [place] 6236609-16-2025 07:55-0400 Body kgJennie Durand DO Work Phone: 1(487)[address] [place], [place] 6236607-31-2025 09:41-0400 Body wexhqz370.2 cmFredric Itzkowitz DO Work Phone: [facility] CenterXexwbtvjvo71-90-5254 09:41-0400Body mass index (BMI) [Ratio]30.54 kg/l8Ryozdfs Itzkowitz DO Work Phone: [facility] CenterLkgviocfjq23-21-3371 09:41-0400Body pyjwjq66.45 kgFredric Itzkowitz DO Work Phone: [facility] CenterWngerlutfn79-36-5674 09:41-0400Diastolic blood schlropb84 mm[Hg]Aaliyah Itzkowitz DO Work Phone: [facility] CenterJqmtivdqsu55-22-1477 09:41-0400Systolic blood ehmkgweq784 mm[Hg]Aaliyah Itzkowitz DO Work Phone: [facility] CenterXwqdbfvsag47-18-2721 10:45-0400Body mass index (BMI) [Ratio]32.44 kg/t9YmsmvzzShazia Elise ORAL SURGERY PHYSICIAN Work Phone: [facility] CenterZjtzjhvovl58-01-5943 10:45-0400Body temperature 96.1 [degF]Shazia Elise ORAL SURGERY PHYSICIAN Work Phone: [facility] CenterYijhqqmpjj47-58-3677 10:45-0400Body hgdxke33.17 kgShazia Elise ORAL SURGERY PHYSICIAN Work Phone: [facility] CenterRgrcsihkkt13-87-8297 10:45-0400Diastolic blood agpufnft90 mm[Hg]Shazia Elise ORAL SURGERY PHYSICIAN Work Phone: [facility] CenterOdyfulxogh51-21-7616 10:45-0400Heart rate95 /min Shazia Elise ORAL SURGERY PHYSICIAN Work Phone: [facility] CenterCzzrxpmqmi08-73-0685 10:45-2592MbW2% (BldA) [Mass fraction]98 %Shazia Elise ORAL SURGERY PHYSICIAN Work Phone: [facility] CenterBflqilzvuw06-18-3280 10:45-0400Systolic blood zhygeosx492 mm[Hg]Shazia Elise ORAL SURGERY PHYSICIAN Work Phone: [facility] CenterQpfdmtzmzc33-26-2763 10:12-0400Diastolic blood hhnjurlw49 mm[Hg]Or[place] Kate [facility]05-16-2025 10:12-0400Heart rate86 /minAmanda Kate [facility]05-16-2025 10:12-0400Mean blood ealuphgh619 mm[Hg]Orlando Stilnest [facility]05-16-2025 10:12-0400 Respiratory rate14 /minAmanda Stilnest [facility]05-16-2025 10:12-0400 Systolic blood zrvrxoih635 mm[Hg]Orlando Stilnest [facility]05-13-2025 09:59-0400Heart rate76 /minBrajoo Mayers [facility]05-13-2025 09:59-4284LqM9% (BldA) [Mass fraction]100 %Babar Mayers [facility]05-13-2025 09:59-0400 Diastolic blood ubqduyyq94 mm[Hg]Babar Mayers [facility]05-13-2025 09:59-0400Mean blood mm[Hg]Babar Mayers [facility]05-13-2025 09:59-0400 Systolic blood xmediyom349 mm[Hg]Babar Mayers [facility]05-13-2025 09:54-0400 Diastolic blood vwoogzzf17 mm[Hg]Babar Mayers [facility]05-13-2025 09:54-0400Heart rate79 /minBradfcher Mayers [facility]05-13-2025 09:54-0400 Respiratory rate14 /minBrajoo Mayers [facility]05-13-2025 09:54-2051PvW4% (BldA) [Mass fraction]100 %Babar Mayers [facility]05-13-2025 09:54-0400 Systolic blood uyaezdie359 mm[Hg]Babar Mayers [facility]05-13-2025 08:35-0400Heart rate79 /minBrajoo Mayers [facility]05-13-2025 08:35-4546TnS9% (BldA) [Mass fraction]99 %Babar Mayers [facility]05-13-2025 08:34-0400Body uckovggxjjw13.88 [degF]Babar Mayers [facility]05-13-2025 08:34-0400 Diastolic blood ivpjwgzi23 mm[Hg]Babar Mayers [address] [place], [place] 5105005-13-2025 08:34-0400Mean blood mcxfakbu618 mm[Hg]Babar Mayers [facility]05-13-2025 08:34-0400 Systolic blood ucdurbxo506 mm[Hg]Babar Mayesr [address] [place], [place] 5105005-13-2025 08:32-0400 Respiratory rate16 /minBrajoo Mayers [address] [place], [place] 5105005-02-2025 08:15-0400 Diastolic blood buhyelnm46 mm[Hg]Orlando Kate [address] [place], [place] 5105005-02-2025 08:15-0400Heart rate79 /minAmanda Kate [address] [place], [place] 5105005-02-2025 08:15-0400Mean blood orvekvye956 mm[Hg]Orlando Kate [address]05-02-2025 08:15-0400 Respiratory rate16 /minAmanda Kate [address] [place], [place] 5105005-02-2025 08:15-0400 Systolic blood waojlvgk828 mm[Hg]Orlando Kate [address] [place], [place] 5105004-04-2025 10:31-0400Body ovrncl536.18 cmSelect [facility]04-04-2025 10:31-0400Body weight 83.91 kgSelect Medical Special[facility] [place]03-17-2025 10:23-0400Heart rate64 /min Babar Mayers [facility]03-17-2025 10:23-1145MfL4% (BldA) [Mass fraction]100 %Babar Mayers [address] [place], [place] 5105003-17-2025 10:23-0400 Diastolic blood mm[Hg]Eckert Talib [facility]03-17-2025 10:23-0400Mean blood wpyvdhuq360 mm[Hg]Babar Mayers [facility]03-17-2025 10:23-0400 Systolic blood adgtnrwd836 mm[Hg]Babar Talib [facility]03-17-2025 10:23-0400 Respiratory rate16 /minBradford Talib [facility]03-17-2025 10:19-0400 Diastolic blood obkfsxhy68 mm[Hg]Babar Mayers [facility]03-17-2025 10:19-0400Heart rate81 /minBradford Talib [facility]03-17-2025 10:19-8172DrS4% (BldA) [Mass fraction]97 %Babar Mayers [facility]03-17-2025 10:19-0400 Systolic blood utppupxt276 mm[Hg]Babar Mayers [facility]03-17-2025 09:10-0400Heart rate77 /minBradford Talib [facility]03-17-2025 09:10-4407YdI7% (BldA) [Mass fraction]99 %Babar Talib [facility]03-17-2025 09:09-0400 Diastolic blood krurkfbp47 mm[Hg]Babar Mayers [facility]03-17-2025 09:09-0400Mean blood mm[Hg]Babar Mayers [facility]03-17-2025 09:09-0400 Systolic blood qhexeprb702 mm[Hg]Babar Mayers [facility]03-17-2025 09:09-0400Body noqfvayzmha28.06 [degF]Babar Mayers [facility]03-17-2025 09:06-0400 Respiratory rate20 /minBrajoo Talib [facility]03-04-2025 13:35-0500 Diastolic blood mm[Hg]Orlando Kate [address] [place], [place] 5105003-04-2025 13:35-0500Heart rate90 /minAmanda Kate [address] [place], [place] 5105003-04-2025 13:35-0500Mean blood umqljqlj665 mm[Hg]Orlando Kate [address] [place], [place] 5105003-04-2025 13:35-0500 Respiratory rate14 /minAmanda Kate [address] [place], [place] 5105003-04-2025 13:35-0500 Systolic blood skbrgnom747 mm[Hg]Orlando Kate [address] [place], [place] 5105002-04-2025 08:08-0500Body chwgoycedpx14.24 [degF][facility]02-04-2025 08:08-0500Diastolic blood iyrzehlj99 mm[Hg][facility]02-04-2025 08:08-0500Heart rate86 /minC[facility] Clinic [facility]02-04-2025 08:08-0500Respiratory rate16 /minCleveland Clinic [facility] Hospital02-04-2025 08:08-2354WoH3% (BldA) [Mass fraction]100 %[facility]02-04-2025 08:08-0500Systolic blood pressure 123 mm[Hg][facility]01-08-2025 11:17-0500Body mass index (BMI) [Ratio]30.12 kg/i9Eggszfynumt Suzie DO Work Phone: [facility] CenterMalxroezyr08-57-5767 11:17-0500Body gmnuof04.64 kgChristopher Suzie DO Work Phone: [facility] CenterShuuqmplcj29-52-8670 11:17-0500Diastolic blood erkassow18 mm[Hg]Christopher Suzie DO Work Phone: 1(780)704-[address] [place], [place] [address]Kcwcxkokor64-07-3393 11:17-0500Heart rate80 /min Christopher Suzie DO Work Phone: 1(372)[facility] [place], [place] [address]Fpjxtxgeoh69-33-4162 11:17-9310PmI3% (BldA) [Mass fraction]98 %[facility] Emergency Departmentsamanta Larsen DO Work Phone: [facility] CenterTdefxyvtck34-58-7798 11:17-0500Systolic blood lsuknjpu392 mm[Hg][facility] Departmentsamanta Larsen DO Work Phone: 1(492)665-[facility] CenterErghspckbf65-00-4731 16:36-0500Diastolic blood xivvetab95 mm[Hg][facility]01-02-2025 16:36-0500Heart rate55 /[facility]01-02-2025 16:36-0500Respiratory rate23 /[facility]01-02-2025 16:36-3947BsR4% (BldA) [Mass fraction]100 %[facility]01-02-2025 16:36-0500 Systolic blood mmlybmsa570 mm[Hg][facility]01-02-2025 13:29-0500Body amqejw418.18 cmSelect [facility]01-02-2025 13:29-0500Body ypytaiihhfh30 [degF][facility]01-02-2025 13:29-0500Body gempdp03 kgSelect [facility] [place]12-31-2024 09:40-0500 Body ydqgnx690.[address] [place], [place] 0494212-31-2024 09:40-0500 Body mass index (BMI) [Ratio]29.44 kg/m2Ely [address] [place] [address] 09-13-2024 09:40-0500Body anmvyg47.28 kgEly 2[facility] 09-13-2024 09:40-0500Diastolic blood mm[Hg]Clarita 2[facility]12-31-2024 09:40-0500Systolic blood mm[Hg]Sheldon 2 [facility]11-25-2024 15:29-0500Diastolic blood qayujorn79 mm[Hg]Aleah Howard MD Work Phone: 1(742)148-[address] [place], [place] 1819511-25-2024 15:29-0500 Systolic blood kwffnebr584 mm[Hg]Aleah Howard MD Work Phone: 1(080)[address]11-25-2024 15:28-0500 Body .2 cmAleah Howard MD Work Phone: 9(933)188-[address] [place], [place] 1819511-25-2024 15:28-0500 Body mass index (BMI) [Ratio]29.44 kg/x6YmewetAleah Howard MD Work Phone: 1(657)990-[address] [place], [place] 1819511-25-2024 15:28-0500 Body yfrpbr19.28 kgAleah Howard MD Work Phone: 8(097)184-[address] [place], [place] 1819511-25-2024 15:28-0500 Heart rate75 /minAleah Howard MD Work Phone: 3(929)561-[address] [place], [place] 1819511-11-2024 15:08-0500 Body mass index (BMI) [Ratio]28.94 kg/p4CducmTevin Carson DO Work Phone: [facility]11-11-2024 15:08-0500Body yuoskh19.8 kgTevin Carson DO Work Phone: [facility]11-11-2024 15:08-0500Diastolic blood woiqbqzz91 mm[Hg]Tevin Carson DO Work Phone: [facility]11-11-2024 15:08-0500Heart rate67 /min Tevin Carson DO Work Phone: [place] [address]-11-2024 15:08-4118HeW9% (BldA) [Mass fraction]100 %Tevin Carson DO Work Phone: [facility]11-11-2024 15:08-0500Systolic blood yvfzskrh302 mm[Hg]Tevin Carson DO Work Phone: [facility]10-21-2024 11:01-0400Body ibyhbn931.2 cmFatuma Tyler [employer]PER [employer] DRIER.REFUSE DRIVER Work Phone: [phone]10-21-2024 11:01-0400Body mass index (BMI) [Ratio]28.98 kg/h7WpsxmmffdFatuma Tyler [employer]IPPER [employer] DRIER.REFUSE DRIVER Work Phone: [phone]10-21-2024 11:01-0400Body mewxdx40.92 kgFatuma Tyler DIPPER AND DRIER.REFUSE DRIVER Work Phone: [phone]10-18-2024 11:01-0400Body lnhout786.2 cmTevin Carson DO Work Phone: [phone]10-18-2024 11:01-0400Body mass index (BMI) [Ratio]29.8 kg/u4DefljTevin Carson DO Work Phone: [facility]10-18-2024 11:01-0400Body ghelqp63.3 kgTevin Carson DO Work Phone: [phone]10-18-2024 11:01-0400Diastolic blood onpmkriu17 mm[Hg]Tevin Carson DO Work Phone: [facility]10-18-2024 11:01-0400Heart rate72 /min Tevin Carson DO Work Phone: [phone]10-18-2024 11:01-9063PlA4% (BldA) [Mass fraction]99 %Tevin Carson DO Work Phone: [facility]10-18-2024 11:01-0400Systolic blood ywlcmufs696 mm[Hg]Tevin Carson DO Work Phone: [facility]06-25-2024 15:02-0400Diastolic blood mm[Hg]Alexis Shukla [address] [place], [place] 6307706-25-2024 15:02-0400Heart rate65 /minAlexis Shukla [facility]06-25-2024 15:02-0400Mean blood mm[Hg]Alexis Shukla [address] [place], [place] 6307706-25-2024 15:02-7125RsS7% (BldA) [Mass fraction]100 %Alexis Shukla [address] [place], [place] 6307706-25-2024 15:02-0400 Systolic blood tcwowsce025 mm[Hg]Alexis Shukla [address]06-25-2024 14:00-6095FnW2% (BldA) [Mass fraction]99 %Alexis Shukla [address] [place], [place] 6307706-25-2024 13:37-0400Body .42 [degF]Alexis Shukla [address] [address] [place], [place] 6307706-25-2024 13:37-0400 Diastolic blood nxwpezom52 mm[Hg]Alexis Shukla [address] [place], [place] 6307706-25-2024 13:37-0400Heart rate70 /minAlexis Shukla [address] [place], [place] 6307706-25-2024 13:37-0400 Respiratory rate18 /minAlexis Shukla [address] [place], [place] 6307706-25-2024 13:37-9098HlI6% (BldA) [Mass fraction]100 %Alexis Shukla [address] [place], [place] 6307706-25-2024 13:37-0400 Systolic blood mm[Hg]Alexis Shukla [facility]06-25-2024 13:14-0400Body igxmawmzxdm42.24 [degF]Alexis Shukla [facility]06-25-2024 13:14-0400 Diastolic blood clacqykb96 mm[Hg]Alexis Shukla [facility]06-25-2024 13:14-0400Heart rate67 /minAlexis Shukla [facility]06-25-2024 13:14-0400 Respiratory rate16 /minAlexis Shukla [facility]06-25-2024 13:14-0400 Systolic blood xlhfshxy446 mm[Hg]Alexis Shukla [facility]06-25-2024 08:06-0400Body .2 cmTrevor Mechelle DO Work Phone: [facility]06-25-2024 08:06-0400Body mass index (BMI) [Ratio]30.9 kg/u0Gnsdqs Baires DO Work Phone: [facility]06-25-2024 08:06-0400Body iqouxq81.5 kgTrevokeshav Baires DO Work Phone: [facility]06-25-2024 08:06-0400Diastolic blood vtsitzty37 mm[Hg]Elia Mechelle DO Work Phone: [facility]06-25-2024 08:06-0400Heart rate82 /min Elia Baires DO Work Phone: [facility]06-25-2024 08:06-2164MwD3% (BldA) [Mass fraction]100 %Elia Baires DO Work Phone: [facility]06-25-2024 08:06-0400Systolic blood kshswuvw348 mm[Hg]Elia Baires DO Work Phone: [facility]04-22-2024 09:28-0400Body umwshh601.2 cmTrevokeshav Baires DO Work Phone: [facility]04-22-2024 09:28-0400Body mass index (BMI) [Ratio]31.96 kg/b5Sbaeetkeshav Baires DO Work Phone: [facility]04-22-2024 09:28-040Body wudvou43.55 kgTrevor Mechelle DO Work Phone: [facility]04-22-2024 09:28-0400Diastolic blood gzzfdcpu26 mm[Hg]Elia Mechelle DO Work Phone: [facility]04-22-2024 09:28-0400Heart rate92 /min Eliakeshav Baires DO Work Phone: [facility]04-22-2024 09:28-9727XfB8% (BldA) [Mass fraction]97 %Eliakeshav Baires DO Work Phone: [facility]04-22-2024 09:28-0400Systolic blood nbipezbm332 mm[Hg]Eliakeshav Baires DO Work Phone: [facility]04-18-2024 11:17-0400Heart rate76 /min DO Jennie Durand Work Phone: 1(423)764-[address] [place], [place] 4587904-18-2024 11:14-0400 Body iozpqmvyhpj93.2 [degF]DO Jennie Durand Work Phone: 1(580)198-[address] [place], [place] 4587904-18-2024 11:14-0400 Diastolic blood zeftlubd88 mm[Hg]DO Jennie Hameede Work Phone: 1(625)491-[facility]04-18-2024 11:14-0400 Respiratory rate18 /minDO Jennie Hameede Work Phone: 1(242)597-[address] [place], [place] 4587904-18-2024 11:14-0400 SaO2% (BldA) [Mass fraction]97 %DO Jennie Hameede Work Phone: 1(419)[address] [place], [place] 6236604-18-2024 11:14-0400 Systolic blood kzdkankf722 mm[Hg]DO Jennie Durand Work Phone: 1(000)[address] [place], [place] 6236604-18-2024 11:13-0400 Body uyxsnm558.18 cmDO Jennie Durand Work Phone: 1(741)[address] [place], [place] 6236604-18-2024 11:13-0400 Body eotuvs25.35 kgDO Jennie Durand Work Phone: 1(152)[address] [place], [place] 6236604-11-2024 11:58-0400 Body .18 cmDO Jennie Durand Work Phone: 1(192)[address] [place], [place] 6236604-11-2024 11:58-0400 Body idpbymlwmru16.8 [degF]DO Jennie Durand Work Phone: 1(734)[address] [place], [place] 6236604-11-2024 11:58-0400 Body ejzmxh73 kgDO Jennie Durand Work Phone: 1(864)[address] [place], [place] 6236604-11-2024 11:58-0400 Diastolic blood mm[Hg]DO Jennie Durand Work Phone: 1(284)[address] [place], [place] 6236604-11-2024 11:58-0400 Heart rate85 /minDO Jennie Durand Work Phone: 1(616)[address] [place], [place] 6236604-11-2024 11:58-0400 Respiratory rate15 /minDO Jennie Durand Work Phone: 1(643)[address] [place], [place] 6236604-11-2024 11:58-0400 SaO2% (BldA) [Mass fraction]100 %DO Jennie Durand Work Phone: 1(837)[address] [place], [place] 6236604-11-2024 11:58-0400 Systolic blood ouhxsxuj753 mm[Hg]DO Jennie Durand Work Phone: 1(550)[address] [place], [place] 6236603-28-2024 12:35-0400 Heart rate70 /minDO Jennie Durand Work Phone: 1(104)[address] [place], [place] 6236603-28-2024 12:35-0400 Respiratory rate16 /minDO Jennie Durand Work Phone: 1(577)[address]03-28-2024 12:35-0400 SaO2% (BldA) [Mass fraction]98 %DO Jennie Durand Work Phone: 1(120)[address]03-28-2024 12:08-0400 Body jeopbj475.18 cmDO Jennie Durand Work Phone: 1(747)[address] [place], [place] 6236603-28-2024 12:08-0400 Body ucoxvoynqoz20 [degF]DO Jennie Durand Work Phone: 1(560)[address] [place], [place] 6236603-28-2024 12:08-0400 Body ksokri02.8 kgDO Jennie Durand Work Phone: 1(186)[address] [place], [place] 6236603-28-2024 12:08-0400 Diastolic blood mm[Hg]DO Jennie Durand Work Phone: 1(148)[address]03-28-2024 12:08-0400 Systolic blood bazrwman061 mm[Hg]DO Jennie Durand Work Phone: 1(214)[address] [place], [place] 6236601-05-2024 08:49-0500 Diastolic blood dizokyyj47 mm[Hg]Gamaliel Vickers DO Work Phone: [facility] [employer] [facility]800razorsJVMTVP33-97-6783 08:49-0500Heart rate58 /minGamaliel Vickers DO Work Phone: [facility] [employer] [facility]800razorsMIUVYZ58-38-7058 08:49-0500 Respiratory rate18 /minGamaliel Vickers DO Work Phone: [facility] [id number] 08:49-4970XqN6% (BldA) [Mass fraction]100 %Gamaliel Vickers DO Work Phone: [facility] [employer] [facility]800razorsHAZRYC22-23-2520 08:49-0500Systolic blood cnaxykxg766 mm[Hg]Gamaliel Vickers DO Work Phone: [address] [place], [place] 6504301-05-2024 08:24-0500Body tevpaiyuhok58.11 [degF]Gamaliel Vickers DO Work Phone: [facility]01-05-2024 07:23-0500Body wahtgf708.2 cmGamaliel Vickers DO Work Phone: [facility]01-05-2024 07:23-0500Body mass index (BMI) [Ratio]31.79 kg/q2OprvlinGamaliel Vickers DO Work Phone: [facility]01-05-2024 07:23-0500Body zcxsqy52.08 kgGamaliel Vickers DO Work Phone: [facility]12-02-2023 13:37-0500Diastolic blood vclzeqaw00 mm[Hg]DO Jennie Durand Work Phone: 1(090)[address]12-02-2023 13:37-0500 Heart rate70 /Damion Durand Work Phone: 1(837)[address]12-02-2023 13:37-0500 Respiratory rate18 /minDO Jennie Hmaeede Work Phone: 7(164)[address]12-02-2023 13:37-0500 SaO2% (BldA) [Mass fraction]99 %DO Jennie Durand Work Phone: 1(578)[address]12-02-2023 13:37-0500 Systolic blood wnnykkca148 mm[Hg]DO Jennie Durand Work Phone: 1(696)[address]12-02-2023 11:29-0500 Body lyljgq549.18 cmDO Jennie Durand Work Phone: 1(371)[address]12-02-2023 11:29-0500 Body tjjyyylzqvq31.2 [degF]DO Jennie Durand Work Phone: 1(991)[address]12-02-2023 11:29-0500 Body ulsjim13.18 kgDO Jennie Durand Work Phone: 1(419)[address] [place], [place] 6236612-01-2023 16:43-0500 Body vkcyyh617.18 cmDO Jennie Durand Work Phone: 1(425)[address] [place], [place] 6236612-01-2023 16:43-0500 Body .2 [degF]DO Jennie Durand Work Phone: 1(534)[address] [place], [place] 6236612-01-2023 16:43-0500 Body szlfzy88.6 kgDO Jennie Durand Work Phone: 1(473)[address] [place], [place] 6236612-01-2023 16:43-0500 Diastolic blood ifigyuuj10 mm[Hg]DO Jennie Durand Work Phone: 1(451)[address] [place], [place] 6236612-01-2023 16:43-0500 Heart rate80 /minDO Jennie Durand Work Phone: 1(295)[address] [place], [place] 6236612-01-2023 16:43-0500 Respiratory rate18 /minDO Jennie Hameede Work Phone: 1(266)[address] [place], [place] 6236612-01-2023 16:43-0500 SaO2% (BldA) [Mass fraction]98 %DO Jennie Durand Work Phone: 1(134)[address] [place], [place] 6236612-01-2023 16:43-0500 Systolic blood ufabwtfy500 mm[Hg]DO Jennie Durand Work Phone: 1(108)[address] [place], [place] 6236611-30-2023 11:15-0500 Body .18 cmImad SPIL GAMES Other [employer] Other 11-30-2023 11:15-0500Body mass index (BMI) [Ratio] 30.54 kg/m2Imad Alderaad Other [facility] [employer] Other 11-30-2023 11:15-0500Body jsrdgu42.45 kgImad Alderaad Other [employer] Other 11-30-2023 11:15-0500Diastolic blood ixlmohog89 mm[Hg] Imad Asaad Other [employer] Other 11-30-2023 11:15-0500Systolic blood hdxednqv153 mm[Hg] Imad Asaad Other [employer] Other 10-25-2023 12:05-0400Body gojpsg160.18 cmPamela Tegan Other [employer] Other 10-25-2023 12:05-0400Body mass index (BMI) [Ratio] 30.22 kg/n4Cupirh Tegan Other [employer] Other 10-25-2023 12:05-0400Body csepsgmvguq04 [degF]Ania Tegan Other [employer] Other 10-25-2023 12:05-0400Body kbbabj61.54 kgPanavjot Javed Other [employer] Other 10-25-2023 12:05-0400Diastolic blood mm[Hg] Ania Tegan Other [employer] Other 10-25-2023 12:05-0400Respiratory rate19 /minAnia Tegan Other [employer] Other 10-25-2023 12:05-7619BkG5% (BldA) [Mass fraction]98 % Ania Tegan Other [employer] Other 10-25-2023 12:05-0400Systolic blood bksbyrop340 mm[Hg] Ania Javed Other [employer] Other 10-20-2023 11:05-0400Diastolic blood jbtmiaey03 mm[Hg] DO Jennie Durand Work Phone: 1(080)[address]10-20-2023 11:05-0400 Heart rate78 /minDO Jennie Durand Work Phone: 1(168)[address]10-20-2023 11:05-0400 Respiratory rate16 /minDO Jennie Durand Work Phone: 1(560)[address] [place], [place] 6236610-20-2023 11:05-0400 SaO2% (BldA) [Mass fraction]99 %DO Jennie Durand Work Phone: 1(779)[address] [place], [place] 6236610-20-2023 11:05-0400 Systolic blood txjstfat930 mm[Hg]DO Jennie Durand Work Phone: 1(148)[address] [place], [place] 6236610-20-2023 10:10-0400 Body yavqgb694.18 cmDO Jennie Durand Work Phone: 1(786)[address] [place], [place] 6236610-20-2023 10:10-0400 Body ufyzwimussn80.7 [degF]DO Jennie Durand Work Phone: 1(063)[address] [place], [place] 6236610-20-2023 10:10-0400 Body bvecej18.9 kgDO Jennie Durand Work Phone: 1(519)[address]10-19-2023 14:06-0400 Body smhieezoelj79.06 [degF]Bakari Chester [facility]10-19-2023 14:06-0400 Diastolic blood gpgybofr72 mm[Hg]Bakari Chester [facility]10-19-2023 14:06-0400Heart rate91 /minBakari Chester [facility]10-19-2023 14:06-0400 Respiratory rate18 /minBakari Chester [address]10-19-2023 14:06-8026KaT6% (BldA) [Mass fraction]100 %Bakari Chester [address] [place], [place] 6307710-19-2023 14:06-0400 Systolic blood khseorbf840 mm[Hg]Bakari Chester [address]05-04-2023 13:30-0400 Diastolic blood wyozrkbv92 mm[Hg]Bakari Chester [address]05-04-2023 13:30-0400Heart rate71 /minBakari Chester [address]05-04-2023 13:30-0400Mean blood tllebtjc61 mm[Hg]Bakari Chester [address]05-04-2023 13:30-0400 Respiratory rate18 /minBakari Chester [address]05-04-2023 13:30-3009ScG2% (BldA) [Mass fraction]100 %Bakari Chester [address]05-04-2023 13:30-0400 Systolic blood whmiqhhj439 mm[Hg]Bakari Chester [address]05-04-2023 12:30-0400 Diastolic blood vlctubwg04 mm[Hg]Bakari Chester [address] [place], [place] 6307705-04-2023 12:30-0400Heart rate78 /minBakari Chester [address] [place], [place] 6307705-04-2023 12:30-0400Mean blood oavotkfk430 mm[Hg]Bakari Chester [address]05-04-2023 12:30-0400 Respiratory rate18 /minBakari Chester [facility]05-04-2023 12:30-7022GwZ4% (BldA) [Mass fraction]100 %Bakarisamuel Chester [address] [place], [place] 6307705-04-2023 12:30-0400 Systolic blood fmxdtkaq394 mm[Hg]Bakari Chester [address] [place], [place] 6307705-04-2023 10:50-0400Body uuvurcvsthl09.42 [degF]Bakarisamuel Chester [address] [place], [place] 6307705-04-2023 10:50-0400 Diastolic blood anrhodpf80 mm[Hg]Bakari Chester [address] [place], [place] 6307705-04-2023 10:50-0400Heart rate77 /Vic Chester [address] [place], [place] 6307705-04-2023 10:50-0400Mean blood lyzspldc15 mm[Hg]Bakari Chester [address] [place], [place] 6307705-04-2023 10:50-0400 Respiratory rate17 /Vic Chester [address] [place], [place] 6307705-04-2023 10:50-5493HsH0% (BldA) [Mass fraction]99 %Bakari Chester [address] [place], [place] 6307705-04-2023 10:50-0400 Systolic blood cvzdlbvo170 mm[Hg]Bakari Chester [facility]03-24-2023 13:20-0400 Diastolic blood ashlsctz81 mm[Hg]Gal Das [facility]03-24-2023 13:20-0400Heart rate58 /minGal Das [facility]03-24-2023 13:20-0400 Respiratory rate18 /minGal Das [facility]03-24-2023 13:20-5113QnV9% (BldA) [Mass fraction]100 %Gal Das [facility]03-24-2023 13:20-0400 Systolic blood hukjzopu207 mm[Hg]Gal Das [facility]03-24-2023 12:00-0400Heart rate54 /minJajunaid Das [facility]03-24-2023 12:00-9580BiS2% (BldA) [Mass fraction]100 %Gal Das [facility]03-24-2023 11:59-0400 Diastolic blood hhcpgtiz36 mm[Hg]Gal Das [facility]03-24-2023 11:59-0400Mean blood pjacgjnt17 mm[Hg]Gal Das [facility]03-24-2023 11:59-0400 Systolic blood mm[Hg]Gal Das [facility]03-24-2023 11:53-0400Body zsywdwjloxe06.52 [degF]Gal Das [facility]03-24-2023 11:53-0400 Diastolic blood mm[Hg]Gal Das [facility]03-24-2023 11:53-0400Heart rate59 /minJajunaid Das [facility]03-24-2023 11:53-0400Mean blood jomvtwoo09 mm[Hg]Gal Das [facility]03-24-2023 11:53-0400 Respiratory rate14 /minJajunaid Das [facility]03-24-2023 11:53-3377HbR4% (BldA) [Mass fraction]100 %Gal Das [facility]03-24-2023 11:53-0400 Systolic blood zbluycsf242 mm[Hg]Gal Das [facility]03-24-2023 11:40-0400Mean blood dizkpdci11 mm[Hg]Gal Das [facility]03-24-2023 11:40-0400 Respiratory rate18 /Reed Das [facility]03-24-2023 11:30-0400Mean blood tjrgqpbe49 mm[Hg]Gal Das [facility]03-24-2023 11:15-0400Body rjotgcfjhyj43.34 [degF]Gal Das [facility]03-24-2023 11:10-0400 Respiratory rate18 /Reed Das [facility]03-24-2023 11:05-0400 Respiratory rate21 /Reed Das [facility]03-24-2023 11:00-0400 Respiratory rate11 /minGal Das [facility]03-24-2023 07:15-0400Mean blood bkjxaftc35 mm[Hg]Gal Das [facility]03-24-2023 07:15-0400Body rhvdltomdhv82.88 [degF]Gal Das [facility]03-24-2023 07:15-0400Heart rate72 /Reed Das [facility]03-24-2023 07:12-0400Mean blood kbazoglr57 mm[Hg]Gal Das [facility]03-10-2023 10:44-0500 Diastolic blood cmmaqovi34 mm[Hg]Gal Das [facility]03-10-2023 10:44-0500Heart rate67 /minJames Thiago [facility]03-10-2023 10:44-0500Mean blood ftvziysr15 mm[Hg]Gal Das [facility]03-10-2023 10:44-0500 Systolic blood bozwxhjp806 mm[Hg]Gal Das [facility]03-10-2023 10:44-0500Heart rate71 /minJames Thiago [facility]03-10-2023 10:44-7973ZlJ5% (BldA) [Mass fraction]100 %Gal Das [facility]03-10-2023 10:43-0500 Diastolic blood ytxubsag19 mm[Hg]Gal Das [facility]03-10-2023 10:43-0500Mean blood ozcadejl61 mm[Hg]Gal Das [facility]03-10-2023 10:43-0500 Systolic blood mehbykzy531 mm[Hg]Gal Das [facility]03-10-2023 10:43-0500 Respiratory rate16 /minJames Thiago [facility]03-09-2023 08:09-0500Body aagfvu436.2 Kay Alvarez MD Work Phone: [place] Gpicof93-96-6856 08:09-0500Body .73 kgEileen Alvarez MD Work Phone: [place] Pfmjoy72-59-6641 08:09-0500Diastolic blood dkikltst22 mm[Hg]Eileen Alvarez MD Work Phone: 1(216)4451383[place] Eymvpf81-61-3672 08:09-0500Heart rate67 /min Eileen Alvarez MD Work Phone: [place] Onsdgd24-72-1486 08:09-7947KqX1% (BldA) [Mass fraction]100 %Eileen Alvarez MD Work Phone: [place] Mcvdes93-07-1608 08:09-0500Systolic blood zyyfeyfz191 mm[Hg]Eileen Alvarez MD Work Phone: [facility] Urgvkj86-80-3783 12:57-0500Blood Pressure LocationJadell Charisse [phone]-Jbjge[address] [place], [place] 6544402-20-2023 12:57-0500Body kmweorbpqye95.24 [degF]Nakia Mcqueen [phone]-XrswkMer[facility]02-20-2023 12:57-0500Diastolic blood mm[Hg]Nakia Mcqueen [phone]-ImyjkMer[facility] Health [facility]02-20-2023 12:57-0500Heart rate85 /minRadhalethaswathi Charisse [phone]-DrjnhMer[facility] Health [facility]02-20-2023 12:57-0210HwD3% (BldA) [Mass fraction]98 %Nakia Mcqueen [phone]-FiapmMercy Health – [facility]02-20-2023 12:57-0500Systolic blood mm[Hg]Nakia Mcqueen [phone]-RktieMercy Health – [facility]01-11-2023 06:57-0500Blood Pressure LocationAimee Walker [phone]-QlsxvMercy Health – [facility]01-11-2023 06:57-0500Body exxwyfwjcqw75.24 [degF]Aimee Walker [phone]-JxzbzMer[facility] Health [facility]01-11-2023 06:57-0500Diastolic blood noupwbdh75 mm[Hg]Aimee Walker [phone]-GugmjMercy Health – [facility]01-11-2023 06:57-0500Heart rate77 /minAimee Walker [phone]-Oajzi[address] [place], [place] 4987801-11-2023 06:57-7033BlT2% (BldA) [Mass fraction]99 %Aimee Walker [phone]-PggheMercy Health – [facility]01-11-2023 06:57-0500Systolic blood pamuqipc431 mm[Hg]Aimee Walker [phone]-Jbtnp[address] [place], [place] 4987812-09-2022 10:31-0500Blood Pressure LocationSt[facility]12-09-2022 10:31-0500Body cwziciylnfg12.06 [degF][facility]12-09-2022 10:31-0500Diastolic blood zpoqxeod78 mm[Hg][facility] 08-22-2022 10:31-0500Heart rate95 /minSt. [facility]12-09-2022 10:31-7691SfO2% (BldA) [Mass fraction]98 %[facility]12-09-2022 10:31-0500Systolic blood mxudwpke936 mm[Hg][facility] 08-19-2022 09:45-0500Diastolic blood sxajoujl21 mm[Hg]DO Jennie Durand Work Phone: [facility]12-06-2022 09:45-0500 Heart rate82 /minDO Jennie Durand Work Phone: 1(575)[address]12-06-2022 09:45-0500 Respiratory rate16 /Maria EugeniaO Jennie Durand Work Phone: 1(401)[address] [place], [place] 6236612-06-2022 09:45-0500 SaO2% (BldA) [Mass fraction]95 %DO Jennie Durand Work Phone: 1(272)[address]12-06-2022 09:45-0500 Systolic blood mm[Hg]DO Jennie Durand Work Phone: 1(978)[address] [place], [place] 6236612-06-2022 07:41-0500 Body rubgzw887.18 cmDO Jennie Durand Work Phone: 1(477)[address] [place], [place] 6236612-06-2022 07:41-0500 Body wahpoj78.6 kgDO Jennie Durand Work Phone: 1(213)[address]12-05-2022 17:26-0500 Body kfgangsqsfn97.06 [degF]Alexis Shukla [address] [place], [place] 6307712-05-2022 17:26-0500 Diastolic blood bayryhsg72 mm[Hg]Alexis Shukla [address] [place], [place] 6307712-05-2022 17:26-0500Heart rate84 /Manisha Shukla [address] [place], [place] 6307712-05-2022 17:26-0500 Respiratory rate18 /minAlexis Shukla [address] [place], [place] 6307712-05-2022 17:26-7953LaY7% (BldA) [Mass fraction]98 %Alexis Shukla [address] [place], [place] 6307712-05-2022 17:26-0500 Systolic blood bbjbrboj621 mm[Hg]Alexis Shukla [address]11-29-2022 15:50-0500Body wrphlyqmymt00.9 [degF]DO Jennie Durand Work Phone: 1(561)[address] [place], [place] 6236611-29-2022 15:50-0500 Diastolic blood srvyggrm56 mm[Hg]DO Jennie Durand Work Phone: 1(084)[address] [place], [place] 6236611-29-2022 15:50-0500 Heart rate64 /minDO Jennie Durand Work Phone: 1(331)[address] [place], [place] 6236611-29-2022 15:50-0500 Respiratory rate20 /minDO Jennie Durand Work Phone: 1(637)[address] [place], [place] 6236611-29-2022 15:50-0500 SaO2% (BldA) [Mass fraction]100 %DO Jennie Durand Work Phone: 1(284)[address] [place], [place] 6236611-29-2022 15:50-0500 Systolic blood cuhldtpp301 mm[Hg]DO Jennie Durand Work Phone: 1(118)[address] [place], [place] 6236611-29-2022 11:00-0500 Body .18 cmDO Jennie Durand Work Phone: 1(013)[address] [place], [place] 6236611-29-2022 06:00-0500 Body laxvqp71.1 kgDO Jennie Durand Work Phone: 1(397)[address] [place], [place] 6236611-25-2022 10:30-0500 Diastolic blood unvkfale70 mm[Hg]Bakari Chester [facility]11-25-2022 10:30-0500Heart rate58 /minBakari Chester [facility]11-25-2022 10:30-0500Mean blood bemrnbkx85 mm[Hg]Bakari Chester [facility]11-25-2022 10:30-0500 Respiratory rate20 /minBakari Chester [facility]11-25-2022 10:30-0698KgR8% (BldA) [Mass fraction]100 %Bakari Chester [address]11-25-2022 10:30-0500 Systolic blood edzjmdiq555 mm[Hg]Bakari Chester [address]11-25-2022 10:00-0500 Diastolic blood mm[Hg]Bakari Chester [address]11-25-2022 10:00-0500Heart rate64 /minBakari Chester [address] [place], [place] 1179011-25-2022 10:00-0500Mean blood seydjktn83 mm[Hg]Bakari Chester [address] [place], [place] 1179011-25-2022 10:00-0500 Systolic blood jvnipneu714 mm[Hg]Bakari Chester [address] [place], [place] 1179011-25-2022 09:13-0500gluc 98 mg/dLBakari Chester [address] [place], [place] 1179011-25-2022 09:13-0500gluc Bakari Chester [address] [place], [place] 1179011-25-2022 09:06-0500Body brobklnwcte96.7 [degF]Bakari Chester [address] [place], [place] 6307711-25-2022 09:06-0500 Diastolic blood pqntziew21 mm[Hg]Bakari Chester [address] [place], [place] 6307711-25-2022 09:06-0500Heart rate79 /minBakari Chester [address] [place], [place] 6307711-25-2022 09:06-0500 Respiratory rate18 /minBakari Chester [address] [place], [place] 6307711-25-2022 09:06-0507AyM1% (BldA) [Mass fraction]100 %Bakari Chester [facility]11-25-2022 09:06-0500 Systolic blood tjuufboi918 mm[Hg]Bakari Chester [facility]11-07-2022 10:50-0500Blood Pressure LocationZhaneletha Valadezell [id number]-QtqvdMer[facility]11-07-2022 10:50-0500Body eufpftyyvfw28.7 [degF]Aimee Walker [phone]-Gmdmh[address] [place], [place] 6544411-07-2022 10:50-0500Diastolic blood hpdophxi83 mm[Hg]Aimee Walker [phone]-Xecav[address] [place], [place] 6544411-07-2022 10:50-0500Heart rate74 /minAimee Walker [phone]-XbqohMer[facility]11-07-2022 10:50-7445VwG4% (BldA) [Mass fraction]99 %Aimee Walker [phone]-Dbezw[address] [place], [place] 6544411-07-2022 10:50-0500Systolic blood laxvssae757 mm[Hg]Aimee Walker [phone]-ZvyhrMercy Health [facility]08-30-2022 10:09-0400Diastolic blood pmobvrvd87 mm[Hg]Alexis Rivers [phone]-NkmvyCorey [facility] [place] 05-13-2022 10:09-0400Heart rate68 /Manisha Rivers [phone]-VwcvtCorey Hospital [facility] [place] 05-13-2022 10:09-0400Systolic blood slnyjenc436 mm[Hg]Alexis Rivers [phone]-VpmhmCorey Hospital [facility] [place] 04-21-2022 09:39-0400Blood Pressure LocationAimee Walker [phone]-LupcqCorey Hospital [facility] 08-08-2022 09:39-0400Body uhmmtqqizym01.24 [degF] Aimee Walker [phone]-Mweoq[address] [place] [address] Primary Care 08-08-2022 09:39-0400Diastolic blood lqdqappa85 mm[Hg] Aimee Walker [phone]-Xlyiz[address] [place] [address] Primary Care 08-08-2022 09:39-0400Heart rate94 /minAimee Walker 169-8963Qcvdgg-Cfcuh[address] [place] [address] Primary Care 08-08-2022 09:39-0639FjM4% (BldA) [Mass fraction]100 % Aimee Walker 324-1943Hbdopb-Elkrh[address] [place] [address] Primary Care 08-08-2022 09:39-0400Systolic blood nwgjnxfo994 mm[Hg] Aimee Walker [phone]-Sitgq[address] [place] [address] Primary Care 08-07-2022 14:56-0400Body regcfzjmysk56.24 [degF][facility]08-07-2022 14:56-0400Diastolic blood mm[Hg][facility]08-07-2022 14:56-0400Heart rate69 /[facility]08-07-2022 14:56-0400Respiratory rate18 /[facility] 04-20-2022 14:56-2737BkK2% (BldA) [Mass fraction]99 %[facility]08-07-2022 14:56-0400Systolic blood cqlukhoa045 mm[Hg][facility]jdari[facility]07-21-2022 19:17-0400Hourly RoundingRaymondinn Dokken [address] [place], [place] 1179007-21-2022 19:17-0400 Promise to ReturnRaymondinn Dokken [address] [place], [place] 1179007-21-2022 19:15-0400 Diastolic blood cgpqkonu00 mm[Hg]Kaylinn Dokken [address] [place], [place] 1179007-21-2022 19:15-0400Heart rate63 /minKaylinn Dokken [address] [place], [place] 1179007-21-2022 19:15-0400Mean blood slwdfgid84 mm[Hg]Kaylinn Dokken [address] [place], [place] 1179007-21-2022 19:15-0400 Respiratory rate18 /minSherryylinn Dokken [address] [place], [place] 1179007-21-2022 19:15-1865PjW8% (BldA) [Mass fraction]100 %Sherryylinn Dokken [address] [place], [place] 1179007-21-2022 19:15-0400 Systolic blood qgxalind200 mm[Hg]Kaylinn Dokken [address] [place], [place] 1179007-21-2022 17:09-0400Body gwasuszklkq90.06 [degF]Kaylinn Dokken [address] [place], [place] 1179007-21-2022 17:09-0400 Diastolic blood ouhnergs55 mm[Hg]Kaylinn Dokken [address] [place], [place] 1179007-21-2022 17:09-0400Heart rate87 /minKaylinn Dokken [address] [place], [place] 1179007-21-2022 17:09-0400 Respiratory rate18 /minLarry Baker [facility]07-21-2022 17:09-6747AeA5% (BldA) [Mass fraction]99 %Larry Baker [facility]07-21-2022 17:09-0400 Systolic blood mngbnilz097 mm[Hg]Larry Baker [address] [place], [place] 6307705-26-2022 09:06-0400Blood Pressure LocationKathrletha Valadezell [phone]-Haxhc[address] [place] [address] Primary Care Work Phone: [phone] 09:06-0400Body oqoueufneak76.52 [degF] Aimee Walker [phone]-Vrske[address] [place] [address] Primary Care Work Phone: [phone] 09:06-0400Diastolic blood fsgxswlo20 mm[Hg] Aimee Walker [phone]-RfsokCorey Hospital [facility] 05-26-2022 09:06-0400Heart rate81 /minAimee Valadezell 278-8164Rrzhza-QfmfeCorey Hospital Primary Care Work Phone: [phone] 09:06-6189ThP2% (BldA) [Mass fraction]100 % Aimee Walker [phone]-VaqkiCorey Hospital [facility] 05-26-2022 09:06-0400Systolic blood leipficg264 mm[Hg] Aimee Walker [phone]-IeyplCorey Hospital [facility] 05-18-2022 10:31-0400Blood Pressure LocationKathryn Walker [phone]-JxzezCorey Hospital [facility] Care 05-18-2022 10:31-0400Body ksvomyoejyg29.16 [degF] Aimee Walker 547-1660Xcieeb-XbuigCorey Hospital [facility] 05-18-2022 10:31-0400Diastolic blood dnjdleqz24 mm[Hg] Aimee Walker [phone]-JnjsgCorey Hospital [facility] 05-18-2022 10:31-0400Heart rate94 /minAimee Walker 462-2725Qtelas-SjgdyCorey Hospital [facility] 05-18-2022 10:31-3153DhP0% (BldA) [Mass fraction]98 % Aimee Walker 382-2750Ucufjg-QjvgoCorey Hospital [facility] 05-18-2022 10:31-0400Systolic blood wcjdeqyg276 mm[Hg] Aimee Walker 173-7485Sdfrcy-WpzfgCorey Hospital [facility] 05-21-2021 07:15-0400Body gmiitjrewdo58.7 [degF] Berry Lawson MD Work Phone: [facility] Work Phone: 1(310) 144-519805-21-2021 07:15-0400Diastolic blood crimqklz18 mm[Hg] Berry Lawson MD Work Phone: [facility] Work Phone: 1(886) 415-828205-21-2021 07:15-0400Heart rate82 /Jade Lawson MD Work Phone: [facility] Work Phone: 1(591) 453-784405-21-2021 07:15-0400Respiratory rate18 /Jade Lawson MD Work Phone: [facility] Work Phone: 1(783) [phone] 07:15-3531ZbO2% (BldA) [Mass fraction]98 % Berry Lawson MD Work Phone: [facility] Work Phone: 1(312) 737-162205-21-2021 07:15-0400Systolic blood rrpyakqw593 mm[Hg] Berry Lawson MD Work Phone: [facility] Work Phone: 1(123) 353-239905-19-2021 16:54-0400Body .2 cmBerry Lawson MD Work Phone: [facility] Work Phone: 1(125) [phone] 16:54-0400Body mass index (BMI) [Ratio] 38.53 kg/t9UxhqcfgsBerry Lawson MD Work Phone: [facility] Work Phone: 1(242) 500-919105-19-2021 16:54-0400Body etlpld984.58 kgBerry Lawson MD Work Phone: [facility] Work Phone: 1([phone]) [phone] 14:27-0400Diastolic blood zatsdzmk78 mm[Hg] David Nash MD Work Phone: [facility] Work Phone: 1(480) [phone] 14:27-0400Heart rate93 /Matty Nash MD Work Phone: [facility] Work Phone: 1(529) 410-631905-19-2021 14:27-0400Respiratory rate16 /Matty Nash MD Work Phone: [facility] Work Phone: 1(314) 378-205505-19-2021 14:27-6745FbF3% (BldA) [Mass fraction]98 % David Nash MD Work Phone: [facility] Work Phone: 1(508) [phone] 14:27-0400Systolic blood tikksuyk247 mm[Hg] David Nash MD Work Phone: [facility] Work Phone: 1(851) [phone] 09:51-0400Body evajhachqli92.2 [degF] David Nash MD Work Phone: [facility] Work Phone: 1(401) [phone] 09:00-0400Body .2 [degF] Gamaliel Vickers [employer] Work Phone: [facility] Work Phone: 1(609) 567-149005-15-2021 09:00-0400Diastolic blood sfjqibau57 mm[Hg] Gamaliel Vickers DO Work Phone: [facility] Work Phone: 1(867) [phone] 09:00-0400Heart rate90 /minGamaliel Vickers [employer] Work Phone: [facility] Work Phone: 1(995) 417-458905-15-2021 09:00-0400Respiratory rate16 /minGamaliel Vickers [employer] Work Phone: [facility] Work Phone: 1([phone]) [phone] 09:00-4069WaE2% (BldA) [Mass fraction]96 % Gamaliel Vickers DO Work Phone: [facility] Work Phone: 1(658) [phone] 09:00-0400Systolic blood sisbuizs320 mm[Hg] Gamaliel Vickers DO Work Phone: [facility] Work Phone: 1(699) 502-816804-27-2021 07:35-0400Body mfsdnmflrxy66.81 [degF] Gamaliel Vickers DO Work Phone: [facility] Work Phone: 1(358) [phone] 07:35-5182IjN0% (BldA) [Mass fraction]97 % Gamaliel Vickers [employer] Work Phone: [facility] Work Phone: 1(690) 109-751404-27-2021 07:29-0400Diastolic blood ijxgthpi70 mm[Hg] Gamaliel Vickers [employer] Work Phone: [facility] Work Phone: 1(962) 594-620104-27-2021 07:29-0400Heart rate87 /minGamaliel Vickers [employer] Work Phone: [facility] Work Phone: 1(692) [phone] 07:29-0400Respiratory rate18 /minGamaliel Vickers [employer] Work Phone: [facility] Work Phone: 1(892) [phone] 07:29-0400Systolic blood zmgtjnme549 mm[Hg] Gamaliel Vickers [employer] Work Phone: [facility] Work Phone: 1(834) 239-840704-26-2021 06:29-0400Body xnilob898.2 cmGamaliel Vickers [employer] Work Phone: [facility] Work Phone: 1(160) 491-558404-26-2021 06:29-0400Body mass index (BMI) [Ratio] 40.68 kg/q0UpklzucGamaliel Vickers [employer] Work Phone: [facility] Work Phone: 1(314) 485-226104-26-2021 06:29-0400Body .8 kgGamaliel Vickers [employer] Work Phone: [facility] Work Phone: 1(848) 668-298204-12-2021 10:33-0400Body arpeff302.2 cmStvz [employer] Work Phone: 1(703) 288-759504-12-2021 10:33-0400Body mass index (BMI) [Ratio] 42.76 kg/m2Stvz [facility] [place] Work Phone: 1(841) 287-450404-12-2021 10:33-0400Body qfhpfxykkop72.7 [degF]Stvz [facility] Work Phone: 1(986) [phone] 10:33-0400Body tjonqw416.83 kgStvz [facility] Work Phone: 1(590) [phone] 10:33-0400Diastolic blood sisuitab76 mm[Hg] Stvz [facility] Work Phone: 1(879) 481-885904-12-2021 10:33-0400Heart rate71 /minStvz [facility] Work Phone: 1(317) 419-459504-12-2021 10:33-0400Respiratory rate18 /minStvz 2 [facility] Work Phone: 1(888) 487-200504-12-2021 10:33-7304GhC3% (BldA) [Mass fraction]98 % [address] [place] Work Phone: 1(687) 408-871304-12-2021 10:33-0400Systolic blood ocxusocu487 mm[Hg] [address] [place] Work Phone: 1(757) [phone] 08:40-0500BP Hdsnynokn60 mm[Hg][facility], TC29-25-0532 08:40-0500BP Icdkekkx693 mm[Hg][facility], WT51-98-0896 08:40-0500Pulse (Heart Rate)84 /min [facility] QN07-65-9909 08:40-0500Pulse Zwwgldpx972 % [place], [place]01-15-2021 08:25-0500Body Uzswbtpebgy05.8 [degF][facility] PD80-18-2098 08:25-0500Respiratory Rate 23 /[place], [place]01-[place] 07:07-0500BMI (Body Mass Index)45.66 kg/m9XcxlyzbGr[place], [place]01-15-2021 07:07-0500Body yohwvj562.22 kgGr[place], [place]01-[place] 07:07-0500Height 170.2 cmGregory [facility] [place] Encounters Encounter DateEncounter TypeCare ProviderFacilityStart: 07-21-2025 End: 08-67-3520icuoddhjdxVBMT NONEFacility:FTMCStart: 07-12-2025 End: 45-46-2639jdrtqujariUkd D Ladarius DO Work Phone: [phone])283-7102381-1321-[facility] Health NeurologyStart: 07-12-2025 End: 04-77-7340Nsadcyg encounter procedureChristopher Suzie [facility] Work Phone: Start: 92-98-5978oaxarqqgzgIkp W CastleFacility:[facility] Start: 07-03-2025 End: 93-68-5375Xtgrct Tan Buckley MD Work Phone: [facility] EyeStart: 07-03-2025 End: 75-91-4248Tinduf Tan Buckley MD Work Phone: [facility] EyeStart: 07-03-2025 End: 86-50-5184Kjymsm outpatient new 45 Aleja Buckley MD Work Phone: [facility] EyeComment on above:IIH (idiopathic intracranial hypertension) (Primary Dx)Start: 07-03-2025 End: 45-19-4187linbrwwtcbFWFJS M ALLENNot AvailableStart: 06-29-2025 End: 14-39-2426Spxlupttg department patient visitJennie Ladarius DO Work Phone: [phone]-Psdtbwkfo Room Work Phone: Start: 06-29-2025 End: 05-90-7876Igazvn follow up visit related to original pxAaliyah Francis DO Work Phone: noms Surgical AssociatesComment on above:Hematoma (Primary Dx); Pseudoangiomatous stromal hyperplasia of breastStart: 06-29-2025 End: 65-96-5955yogdcunrurAOBQWXN H ITZKOWITZNot AvailableStart: 06-14-2025 End: 04-27-3607Fbhxej follow up visit related to original pxFredric Jonathan Itnabil DO Work Phone: [facility] Surgical AssociatesComment on above:Hematoma (Primary Dx); Pseudoangiomatous stromal hyperplasia of breastStart: 06-14-2025 End: 00-30-9923emncrultqxRDTBFVT H ROBBNot AvailableStart: 06-06-2025 ambulatoryEfrem VictorFacility:[facility] Hospitaltart: 92-03-7534Pjiykziloh [place] RAY CredibleStart: 05-30-2025 End: 78-80-1756Zqzpybgnj to same day surgery centerFredric Itnabil DO-[facility]edoStart: 05-30-2025 End: 77-82-9573wnstuotvqiPqg D Durand DO Work Phone: [facility] Work Phone: Start: 65-10-5381fvzijyfppaVwukbas Itzkoraúl Facility:[facility] Hospitaltart: 05-16-2025 End: 34-66-1735Flbqhjtn ReferredFredric Itzkowitz QN-Gsv-Opmhcezu Testing Work Phone: Start: 05-16-2025 End: 67-53-5396Qjpyyiu encounter procedureFredric Itzkowitz FZ-Wwk-Vomuavxc Testing Work Phone: Start: 05-16-2025 End: 77-31-2099psaffghehrOrt D Durand DO Work Phone: [facility] Work Phone: Start: 59-27-3174Dxerfqtgmz [place] RAY CredibleStart: 05-04-2025 End: 06-31-9923Kzxmnh outpatient visit 25 minutesFredric H Itbelindaraúl DO Work Phone: [facility] Surgical AssociatesComment on above: Pseudoangiomatous stromal hyperplasia of breast (Primary Dx)Start: 05-04-2025 End: 78-91-9940ktnagfupwcHJQBYWA H ITZKOWITZNot AvailableStart: 04-26-2025 End: 08-64-3406Hpuqmgz encounter procedureFredric Itnabil DO-[facility] Work Phone: Start: 04-26-2025 End: 83-06-4845jahfywphlnOrkdmzvob Osmani CEDRIC Work Phone: [facility] Work Phone: Start: 04-21-2025 End: 75-17-6110bfyflddgtoRdx W CastleFacility:FTMCStart: 54-51-5501Qjgxovyfbf [place]field WALTON CredibleStart: 04-13-2025 End: 14-33-1443Yupeqx outpatient new 60 minutesFredric H Itzkoraúl DO Work Phone: [facility] Surgical AssociatesComment on above: Pseudoangiomatous stromal hyperplasia of breast (Primary Dx); Hypertrophy of breastStart: 04-13-2025 End: 37-78-8107isvirvwvwuBOJHNVN H ITZKOWITZNot AvailableStart: 04-09-2025 End: 01-60-8894Ilxifo outpatient visit 25 minutesJessica L Didion ORAL SURGERY PHYSICIAN Work Phone: [facility] Urgent CareComment on above:Acute pharyngitis, unspecified etiology (Primary Dx); Pharyngitis, unspecified etiologyStart: 04-09-2025 End: 07-22-6295nivgidhbjaLWSDPSF L DIDIONNot AvailableStart: 03-29-2025 End: 81-99-8278lhzkssowsoNkazf G. HaddadFacility:FTMCStart: 03-16-2025 End: 31-82-3508Vff-admission assessmentJak Peace [facility] Start: 03-13-2025 End: 97-95-3553xfebcgpjywWgi W CastleFacility:FTMCStart: 03-09-2025 End: 15-37-4013jenklhyykxVdc D BrowneFacility:FTMCStart: 03-09-2025 End: 19-48-3648Ljggntt encounter procedureBabar Mayers [facility] Start: 03-03-2025 End: 63-78-6441umzjtkjvxnTjgfzefu A. JonesFacility:FTMCStart: 03-03-2025 End: 79-64-2063Miwk ManagementBabar Mayers [facility] Start: 03-02-2025 End: 18-66-2565yjnsxjgtwjVALFOT R KLONKFacility:FTMCStart: 03-02-2025 End: 79-06-7985Nnjkddp encounter procedureMARII RICK [facility] Start: 02-17-2025 End: 11-16-4486Iqkkszocz department patient visitTim Austin [facility] Start: 02-16-2025 End: 16-37-8877kyldjcpbrvQpc W CastleFacility:FTMCStart: 02-16-2025 End: 03-92-9441Wupwomf encounter procedureLoswathi Peace [facility] Start: 02-16-2025 End: 01-12-5724ldoflszoaoHYPAVRRV HERNANDEZFacility:FTMCStart: 02-16-2025 End: 62-27-7037Mezjaym encounter procedureLon Moshe Peace [facility] Start: 02-11-2025 End: 45-25-4713TiblycJxfwz Wolfe DO Work Phone: Family MedicineComment on above:Refill RequestStart: 02-09-2025 End: 71-07-8661dhbgoptgviOuruhor OthmanFacility:FTMCStart: 02-09-2025 End: 08-79-6950Jnxxnvs encounter procedureMOLLY GREGORIO [facility] Start: 02-03-2025 End: 62-30-3660Ojc-admission assessmentBabar Mayers [facility] Start: 02-03-2025 End: 73-98-5879cmdemauimmXVFOCZJT HERNANDEZFacility:FTMCStart: 01-27-2025 End: 59-25-3653gdevcporjoFgzora SpringerFacility:FTMCStart: 01-27-2025 End: 56-80-9165Jsebzpx encounter procedureAmanda Kate [facility] Start: 01-24-2025 End: 36-58-0422nqgwpggroqAtovgmdm A. JonesFacility:FTMCStart: 01-24-2025 End: 02-09-2416Yyoo ManagementBabar Mayers [facility] Start: 01-19-2025 End: 38-07-4909Opz-admission assessmentAmanda Kate [facility] Start: 01-13-2025 End: 60-71-9820rtwgncusxfGfspuw SpringerFacility:FTMCStart: 01-13-2025 End: 06-53-2799Bkjdipa encounter procedureAmanda Stilnest [facility] Start: 12-16-2024 End: 93-66-9167Tldcqbl encounter procedureSt. [facility] [place] Work Phone: Start: 12-16-2024 End: 47-22-6352nxcmgpjfcgRYM [facility] Work Phone: Start: 12-14-2024 End: 81-13-4873uageaozgxsHqskiqy B RhiewFacility:FTMCStart: 12-14-2024 End: 93-97-1558Lnoykao encounter procedureDavid Rivers Rhiew [facility] Start: 12-12-2024 End: 73-97-5704Jkdoezs encounter [facility] [address] Work Phone: Start: 12-12-2024 End: 28-63-9657fxqxonxacfHHZOhioHealth [facility] Hospital Work Phone: Start: 11-29-2024 End: 94-37-6830wxadmstkncPor D BrowneFacility:FTMCStart: 11-28-2024 End: 78-23-7003kefsvsyeemMxlsubmk A. JonesFacility:FTMCStart: 11-28-2024 End: 55-52-5473Jjmi Steve Mayers [facility] Start: 11-18-2024 End: 96-43-9787xkszhmjkjkZSRVEM A LEHMANNFacility:FT FM BellthomasueStart: 11-15-2024 End: 48-21-3206lqooiqzqilVegekq SpringerFacility:FTMCStart: 11-15-2024 End: 70-16-1900Zslxuoi encounter procedureAmanda Kate [facility] Start: 11-11-2024 End: 29-88-6091fnvhqetlshRcnfcqn B RhiewFacility:FTMCStart: 11-11-2024 End: 41-77-9204Eartrvf encounter procedureDavid Silvestre Victorinoangelinamoshe [facility] Start: 11-02-2024 End: 40-50-3878Cgutmuw encounter procedureJennie Durand [facility] Start: 11-02-2024 End: 95-61-2705aqssagmohbAvk Jeni BrowneFacility:FTMCStart: 11-01-2024 End: 65-26-1502Umd-admission assessmentJennie Jeni Ladarius [facility] Start: 10-18-2024 End: 96-27-5244Pwiozeczg department patient visitAstrit Jonathan BrenPremier Health [facility] Start: 10-17-2024 End: 09-77-8309ulmyzxjtazFrwsvlheMercy Hospital [facility] EnterpriseStart: 10-17-2024 End: 51-72-6100Bslhaej encounter procedureMicMercy Hospital Fort Smith EnterpriseComment on above:Population Health Navigation Outreach (Mauricio Phan)Start: 10-14-2024 End: 56-39-9359wgiuruzbudUSVSYW A LEHMANNFacility:FT BellevueStart: 09-30-2024 End: 35-37-0884aujauyqfzpJPICJE A LEHMANNFacility:FT FM BellevueStart: 09-27-2024 End: 55-48-2154Pfrglb flowsheetChristopher Suzie DO Work Phone: aNA NORWALKStart: 09-27-2024 End: 96-47-8127Xrqxoz flowsheetChristopher Suzie DO Work Phone: ana NORWALKStart: 09-27-2024 End: 93-61-3117Srtnlnx encounter procedureChristopher Suzie DO Work Phone: aNA NORWALKComment on above:MyalgiaStart: 09-27-2024 End: 94-86-9492lqjffozakmPYTZMNORSOE HASSETTNot AvailableStart: 09-27-2024 End: 19-68-2070jkzieegghqJIPDRT A LEHMANNFacility:FT FM BellevueStart: 09-26-2024 End: 64-09-0121krluujijhgYHTMGN A LEHMANNFacility:FT FM BellevueStart: 09-21-2024 End: 29-64-4120Efsnnalcy Result EncounterChristopher Suzie DO Work Phone: noms External Department UnsolicitedStart: 09-21-2024 End: 55-11-6596Iyvkhhgmj Result EncounterChristopher Suzie DO Work Phone: noms External Department UnsolicitedStart: 09-21-2024 End: 45-60-6586Xqwuux outpatient visit 25 minutesChristopher Suzie DO Work Phone: aNA BELLEVUEComment on above:Ataxia (Primary Dx); MyalgiaStart: 09-21-2024 End: 35-42-2036ricnaenkonAHPIXBJGRTU HASSETTNot AvailableStart: 09-20-2024 End: 63-93-4023Gur Drop offSHELLY A ESHA [facility] Start: 09-20-2024 End: 71-43-7317tjlidtyfggTPWQGN A LEHMANNFacility:FT FM BellevueStart: 62-20-7707fztsxtgldxWWHVPD LEHMANNFacility:FT FM BellevueStart: 09-15-2024 End: 73-65-2805Tlxzbdojl department patient visitK[facility]tering [facility] Work Phone: Start: 09-15-2024 End: 96-56-4339hdcqwwyfwmVHYKYIIMI BREAULTFacility:FT FM BellevueStart: 09-13-2024 End: 13-79-1089Cbavhmsazg hospital visit by Snoia Smith Echo/Vasc Room 2C[facility] CenterComment on above:Angina pectoris; Shortness of breath; Palpitations; Family history of ischemic heart disease; Primary hypertensionStart: 09-13-2024 End: 02-78-2222ygpmbporbnJWSDPVSt. [facility] of [facility] Hospital Start: 09-04-2024 End: 21-27-4751nytxkysaukNbxnr Carson DO Work Phone: [facility] MedicineComment on above:Blood workStart: 08-25-2024 End: 24-41-8803cngelpcbagDwhsoOdessa Trinidad RN Work Phone: ambulatory Care ManagementStart: 08-25-2024 End: 29-20-1596Aivlcvc encounter Cinda Trinidad RN Work Phone: ambulatory Care ManagementComment on above:CARMELINA LAN RN (ED Utilization Review per request of payor/)Start: 08-18-2024 End: 19-93-8691Hjrhwnk encounter procedureSCODIE MARADIAGA [facility] Start: 08-17-2024 End: 70-62-4596SwafevLrubp Wolfe DO Work Phone: [facility] MedicineComment on above:Med Change Request Start: 08-08-2024 End: 20-52-4020Awtkfs outpatient new Sharon Howard MD Work Phone: [facility] CenterComment on above:Angina pectoris; Shortness of breath; Palpitations; Family history of ischemic heart disease; Primary hypertension; Current smoker; BMI 29.0-29.9,adultStart: 08-08-2024 End: 27-20-3016vwdrsxurkzEICRNGUnity Hospital AmbulatoryStart: 07-26-2024 End: 73-51-3127gwlbiirylgSAZJB WOLFEFacility:[facility] HospitalStart: 07-25-2024 End: 83-05-6417pcryxzvbrtKNJIU WOLFEFacility:[facility] Centertart: 07-25-2024 End: 52-47-7314Drliso outpatient visit 25 Mony Carson DO Work Phone: [facility] MedicineComment on above:Bipolar affective disorder in remission (HCC) (Primary Dx); Borderline personality disorder (HCC); Anxiety disorder, unspecified type; Chest pain, unspecified type; Iron deficiency anemia, unspecified iron deficiency anemia typeStart: 07-22-2024 End: 89-61-8621hqocxsvnxbKplhl Wolfe DO Work Phone: [employer] [facility] MedicineComment on above:Depression and anxiety Anxiety; DepressionStart: 07-13-2024 End: 29-45-6854Yjwftvijq encounterSbill Tate RNMammographyComment on above:Results; AppointmentStart: 07-11-2024 End: 46-07-8830uikbevuhoqGCLOPR PURYSKOFacility:[facility]art: 07-11-2024 End: 52-67-0738Ktklopyrmo hospital visit by physicianProcedure Mammo [facility] Stro MammographyComment on above:Abnormal mammogram of left breast [R92.8]Start: 07-04-2024 End: 01-22-2959brcmmbplvuMCWAC WOLFEFacility:[facility]art: 07-04-2024 End: 60-09-5326Wiamayc encounter procedureMarulises Tyler APRN.REFUSE DRIVER Work Phone: [facility] HospitalComment on above:Abnormal mammogram (Primary Dx); Mass of upper outer quadrant of left breast; Fibrocystic breast changes of both breasts; Mastodynia; Inversion of left nipple; Bloody discharge from left nipple; Nipple dischargeStart: 07-04-2024 End: 18-08-0771Kqdxuvhwzx hospital visit by physicianClinic Imaging Mammo Stro Work Phone: MammographyComment on above:Mass of upper outer quadrant of left breast [N63.21]Start: 21-06-3162Ayx-patient / Non-visit [facility] Work Phone: Start: 07-01-2024 End: 05-29-4778xklgkdbfsiTDFUU WOLFEFacility:[facility]art: 07-01-2024 End: 29-51-8539Vbowqc outpatient visit 25 minutesJacob Ledy DO Work Phone: [facility] MedicineComment on above:Chest pain, unspecified type (Primary Dx); Palpitations; Bipolar affective disorder in remission (HCC); History of substance abuse (HCC); Borderline personality disorder (HCC); Serum calcium elevatedStart: 06-30-2024 End: 06-96-1219Bgbhbkhzw encounterMarulises Tyler APRN.CNP Work Phone: Breast CenterComment on above:AppointmentStart: 05-30-2024 End: 66-68-8764hxhlyblvucBpguidjb White RN Work Phone: Ambulatory Care ManagementComment on above:CARMELINA LAN RN (ED Utilization review per request of payer)Start: 04-26-2024 ambulatoryTrevor Swathi Baires DO Work Phone: Famiel MedicineStart: 03-08-2024 End: 10-77-9007Dwkdkosbr department patient visitminh Vazquez [facility] Start: 03-08-2024 End: 45-41-8073Vhjnhfijyb hospital visit by physicianMri [facility] Clubb (Lg Bore/1.5t)Radiology MRIComment on above: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]Start: 03-08-2024 End: 20-95-8845wiwivlzzhlGHHJU A NAFFOUJEFacility:[facility] Start: 03-08-2024 End: 51-95-9390Vhkmhcv encounter procedureTrevokeshav Baires DO Work Phone: Famixf MedicineComment on above:Routine health maintenance (Primary Dx); [...] (HCC); Anxiety disorder, unspecified typeStart: 03-08-2024 End: 54-15-2306Syvoebd encounter statusTrevokeshav Baires DO Work Phone: [facility] Work Phone: Start: 02-25-2024 End: 73-18-5694grwulpzmdbDVWAFR N SCHROEDERFacility:[facility] Start: 01-13-2024 End: 37-00-2727honbnzarafXSYLEXProMedica Fostoria Community Hospitaltart: 38-43-8555Eweflsufz encounterTrevor Swathi Baires DO Work Phone: Family MedicineStart: 01-04-2024 End: 30-99-4487sebetduvzdHPSEDO Swathi BAIRESFacility:[facility] Start: 01-04-2024 End: 05-52-9795Pduflsa encounter procedureTrevokeshav Baires DO Work Phone: Famili MedicineComment on above:Panic disorder (Primary Dx); Borderline personality disorder (HCC); Bipolar affective disorder in remission (HCC); Chronic alcoholism in remission (HCC); Routine health maintenanceStart: 01-04-2024 End: 66-84-4908Anxeppv encounter statusTrevokeshav Baires DO Work Phone: [facility]tart: 12-31-2023 End: 49-91-0726Wmnsxojtm department patient visitDO Jennie Durand Work Phone: [facility] Work Phone: Start: 62-62-2935aonzkhuapvOERV REFERRALFacility:[facility] [place] Start: 12-24-2023 End: 01-24-6279Nbwqtpmns department patient visitDO Jennie Durand Work Phone: [facility]Emer[facility] Work Phone: Start: 36-43-1354zprrrswsqiNygtAnna Larsen Facility:FTCOMMUNITY MEM[facility]IAL [facility] SAN BUENAVENTURAtart: 12-10-2023 End: 10-76-6315Klsrmdjfh department patient visitDO Jennie Durand Work Phone: [facility]-Emergency [facility] Work Phone: Start: 12-09-2023 End: 77-55-3168byawyhzgjiBjy D BrowneFacility:FTMCStart: 12-09-2023 End: 77-60-0494Hnfbgxw encounter procedureJennie Durand [facility] Start: 10-23-2023 End: 43-34-3332hnzziydfhvWYWLESChristoph Norwoodard HospitalStart: 10-12-2023 End: 77-99-4875jfedwggfogZVNXDTCGAMALIEL Finch HospitalStart: 09-18-2023 End: 56-78-3031Pjyfagtsam hospital visit by physicianGamaliel Vickers DO Work Phone: [facility]pb [place] ORStart: 08-31-2023 End: 54-39-8670vcwnjnbgflZXFZU A NAFFOUJEFacility:[facility] HospitalStart: 08-28-2023 End: 20-07-9546cgzkgboqweUdmd Asaad Other [place] [employer] Other Start: 10-13-2332Equqyadka encounterImad AsaadFPG Referral CoordinatorStart: 08-18-2023 End: 55-02-5146hnoxuebwhdDASTOX BERRYMercy Alpaugh HospitalStart: 08-15-2023 End: 23-18-3568Lvzgyjxtb department patient visitDO Jennie Durand Work Phone: [facility]-Emergency [facility] Work Phone: Start: 08-14-2023 End: 64-45-5798Ydkovvgzs department patient visitDO Jennie Durand Work Phone: [facility] Work Phone: Start: 08-13-2023 End: 89-68-8115feolnotdeeHrip Asaad Other [place] [place] [employer] Other Start: 38-90-7393Msklrl outpatient new 45 minutesImad AsaadFPG GastroenterologyStart: 08-12-2023 End: 35-54-0535bdazbeaczdDHBXHO Kaykay Fanfin HospitalStart: 07-08-2023 End: 52-55-0233uzmnzifzhuIncswn Dymond Other [employer] [place] [employer] Other Start: 45-47-6914Hbtjfx outpatient new 20 minutes Ania DymondFPG Urgent Care ClydeStart: 07-03-2023 End: 60-63-1660Qoxrbxogv department patient visitDO Jennie Durand Work Phone: [facility]-Emergency [facility] Work Phone: Start: 07-02-2023 End: 07-67-9528Zelensxza department patient visitBakari Chester [facility] Start: 06-10-2023 End: 65-71-8973auykfiydsaWZEKME MANFacility:[facility] HospitalStart: 06-09-2023 End: 57-54-0259Mcqcornys department patient visitJominh ParenteFacility:FTMCStart: 63-87-0344ZvkahsRxxlpt Man MD Work Phone: NeurologyComment on above:Refill RequestStart: 03-19-2023 End: 32-19-1472qvdcahwqbzDV GANESH CORDEROFacility:FTMCStart: 03-19-2023 End: 27-22-9961Epuxaeo encounter Godwin CORDERO [facility] Start: 01-29-2023 End: 19-64-4852Admanpdnan hospital visit by physicianarielle [facility] Vicky (1.5t) Work Phone: RadiologyComment on above:Idiopathic intracranial hypertension [G93.2]Start: 01-15-2023 End: 92-27-5279Nhostqrhd department patient visitBakari Chester [facility] Start: 01-02-2023 End: 84-41-4689Txpnhsr encounter procedureNakia Mcqueen [phone]-GiqlaCorey Hospital [facility] Start: 12-61-6759SngqhiTzuzdj Man MD Work Phone: NeurologyComment on above:Refill RequestStart: 12-05-2022 End: 23-20-5930Bpiizfbcc to same day surgery glennvilleGal Das [facility] Start: 11-21-2022 End: 91-65-5895Qwrogbb encounter procedureGal Das [facility] Start: 11-20-2022 End: 86-07-2122wujydzhhucIFCNII MANFacility:[facility] HospitalStart: 11-20-2022 End: 28-76-8503Pawrngg encounter Kirstie Alvarez MD Work Phone: NeurologyComment on above:Idiopathic intracranial hypertension (Primary Dx); Depression, unspecified depression type; Primary hypertension; Hx of gastric bypass; H/O foot surgeryStart: 11-03-2022 End: 42-34-9976Treyoxd encounter procedureNakia Mcqueen [phone]-VkndzCorey Hospital Primary Care Start: 10-30-2022 End: 13-51-2337lxfpvvhkyhHMVANY RODRIGUEZ .Facility:P2Zrsah: 10-23-2022 End: 34-62-2521Skk Drop Lucy Das [facility] Start: 10-14-2022 End: 87-08-7176Ruxdant encounter procedureRita Loja [facility] Start: 09-24-2022 End: 42-37-0316Xvryuzb encounter procedureAimee Walker [phone]-RnebdCorey Hospital Primary Care Start: 08-22-2022 End: 79-15-6650Ymcflhm encounter procedureRahul SalinasCorey Hospital Primary Care Start: 08-19-2022 End: 49-81-5878angugfjwmvLB Jennie Durand Work Phone: [facility] Work Phone: Start: 08-19-2022 End: 97-56-1740Yuepwmt encounter procedureDO Jennie Durand Work Phone: [facility]Ray [facility] CampusStart: 08-18-2022 End: 62-29-2481txbchnmkjnWD NATALIE GRECHNY .Facility:M0Gvdny: 08-18-2022 End: 01-29-0039Zborlewxy department patient visitAlexis Vazquez [facility] Start: 08-16-2022 End: 05-43-9252jlpzvlsrnxMG JACK HAY .Facility:V3Urqvx: 95-91-0513decrnztape Facility:[id number]: 08-11-2022 End: 69-48-3387Epbnjmyjdy and management of inpatientDO Jennie Hameede Work Phone: [facility]-4 [place] SurgicalStart: 08-11-2022 End: 73-61-1733azybkqiftkl encounterDO Jennie Durand Work Phone: [facility] Work Phone: Start: 08-11-2022 End: 97-15-7634iuvftepgugUH WEI PHAMFacility:Z3Qsryv: 08-08-2022 End: 65-32-2721Xiwvwrnoc department patient visitBakari Chester [facility] Start: 07-21-2022 End: 20-13-3018Gypxxje encounter procedureAimee Walker [phone]-LhgisCorey Hospital Primary Care Start: 07-19-2022 End: 99-34-1236cjrfeunknyIB DOCTOR MISCFacility:X1Vnzsf: 86-97-8099Fsgrfqjax Estela Leiva) LevyPlastic SurgeryComment on above:AppointmentStart: 06-12-2022 End: 00-68-3397iewluqzzzmJO CAROLYNE RALPHFacility:F7Jrjfv: 06-10-2022 End: 78-13-1480Jbkirnb encounter Godfrey Rivers [facility] Start: 05-30-2022 End: 46-51-2960odgqsxobvhLHMKYHH D KATKOFacility:K1Mfmuj: 05-13-2022 End: 86-35-2593Nhbkeft encounter Godfrey Rivers [phone]-IowrgCorey Hospital General Surgery [place] Start: 04-22-2022 End: 76-76-7636Iftrzde encounter procedureAimee Walker [facility] Start: 04-21-2022 End: 04-33-3634Lokkifz encounter procedureAimee Walker [phone]-LemjeCorey Hospital Primary Care Start: 04-20-2022 End: 55-62-3992Mduxxzhdf department patient visitJose CorreiaPrem[facility] Health [facility] Start: 04-07-2022 End: 29-14-3711ubxiphxrrkOJ JEFFREY PAY .Facility:Z3Pqitr: 04-03-2022 End: 52-10-1960Ccahntwxm department patient visitLarry Baker [facility] Start: 04-03-2022 End: 52-63-9274Doyt adult monitoring check doneLarry Baker [facility] Hospitaltart: 02-12-2022 End: 55-75-6189Xtwbomq encounter procedureAmee Gonzalez PA-C Work Phone: OtolaryngologyComment on above:Burning tongue (Primary Dx); Irritation of oral cavityStart: 02-08-2022 End: 90-66-0166zqmzsmgrlmSKUWBK RODRIGUEZ .Facility:A2Sufmu: 02-06-2022 End: 16-85-9969Kcrlupe encounter procedureAimee Walker [phone]-YnuvhCorey Hospital Primary Care Start: 01-30-2022 End: 14-02-8879gotfdkfjcwEILBYEP D KATKOFacility:G6Dwlrh: 01-29-2022 End: 42-63-4364Yyzreff encounter procedureAimee Walker [phone]-GwsenCorey Hospital Primary Care Start: 36-80-9868gdeimsicbrAmpapy A Levy MD Work Phone: Plastic SurgeryComment on above:questionsStart: 65-10-3909Yytwhjxxj Estela Mckee MD Work Phone: Plastic SurgeryComment on above:Patient Question; AppointmentStart: 01-09-2022 End: 39-20-8859Mjhvwvm encounter procedureKatrein Walker [phone]-RehylCorey Hospital Primary Care Start: 83-80-6535Layybxvxr Estela Mckee MD Work Phone: Plastic SurgeryComment on above:OrdersSchedulingStart: 11-16-2021 End: 62-07-4738xeiqdodakfJW WILEY HELMFacility:N2Uqlnh: 02-04-2021 End: 97-25-1098Xculwtbhez [facility] ScanComment on above:Omental infarction (HCC)Start: 01-30-2021 End: 89-54-7531Opakjpslid and management of inpatientBerry Lawson MD Work Phone: stvz 2C Ortho/Med SurgComment on above:Surgery, elective (Primary Dx); Omental infarction (HCC)Start: 01-30-2021 End: 08-42-5118Tqkyuoexp department patient visitDavid Nash MD Work Phone: [facility] EDComment on above:Generalized abdominal pain (Primary Dx)Start: 01-26-2021 End: 95-18-9651Gtulxjmqks hospital visit by Kenia Vickers DO Work Phone: stvz 3C Med SurgComment on above:DehydrationStart: 01-07-2021 End: 87-66-9216Ljimagonaf and management of inpatientGamaliel Vickers DO Work Phone: stvz 2C Ortho/Med SurgComment on above:Post-op pain (Primary Dx)Start: 01-03-2021 End: 04-63-3001kpqoogykwuQWA Jeni MERLINMercy Health St. Anne Hospitalrosy Franciscan Healthtart: 01-03-2021 End: 00-42-5926Mcepcui encounter statusStaz Vanita Covid ScreeningStart: 01-03-2021 End: 31-18-6921Laamrfqjvr hospital visit by physicianSgiovana Beyid Screening ScheduleSGIOVANA Covid ScreeningComment on above:Preop testing (Primary Dx)Start: 12-24-2020 End: 70-48-3562Caqaplgalf hospital visit by physicianSmoni Salinas [facility] RadiologyComment on above:ArrivedStart: 11-01-2020 End: 78-16-3786Iehqjhczao hospital [facility] RadiologyComment on above:Gastroesophageal reflux disease with esophagitis without hemorrhageStart: 10-26-2020 End: 88-70-6063Ycppkjvgkt hospital visit by physicianMoblanquita Covid Screening ScheduleMT Covid ScreeningComment on above:Preoperative testingStart: 09-28-2020 End: 25-91-8897Zltgdbaies hospital visit by Kenia Vickers Work Phone: STAZ [place] ORStart: 09-24-2020 End: 64-41-0269Jsgtlrkapg hospital visit by physicianBet[facility]da Hospital Hakan19 Pat Screening ScheduleHIHZ PRE ADMITComment on above:Preoperative testingStart: 11-01-2015 Patient encounter procedureKATHERINE DISANOFacility:[facility] Procedures DateProcedureProcedure DetailPerforming ClinicianStart: 07-03-2025 End: 72-75-4349Vyunyp field xm uni/bi w/interp extended examSarah Buckley MD Work Phone: Start: 21-24-2628RL of head without contrastJennie Durand DO Work Phone: start: 64-12-3186Tfjpr chest X-rayJennie Durand DO Work Phone: start: 82-52-8384Eljmofehowo of left breast specimen Jennie Durand DO Work Phone: start: 17-44-7188Jvfovoesbx of left breastAmy Durand DO Work Phone: start: 37-51-4241Gcdwunbsejk of left breastAmy Durand DO Work Phone: start: 03-79-8359Ppwpzlasfnelgcd guided needle localization of lesion of left breastAmy Durand DO Work Phone: start: 57-58-0859Hyjiaukvhvg of left breastLindy Keen [employer] Work Phone: Start: 32-02-1366Anhujqmscvjjvfa of left breast Lindykorin Keen [employer] Work Phone: Start: 00-81-3109Ltcgx streptococcus group a amplified probe tqJessica Isreal Elise NP Work Phone: Start: 38-37-7750Pfwxqpdqh of facet joint using fluoroscopic guidanceBabar Mayers comment on above:L4-Y6Axnmq: 92-65-7526Srklipmdu of facet joint using fluoroscopic guidanceIsmaeliMedix Inc. start: 14-24-3733YHF of headStart: 55-55-7270Jkfaxmwie of nerve root of lumbar spine using fluoroscopic guidanceSouthern Ocean Medical CenteriMedix Inc. comment on above:left L5/S1 TFESIStart: 09-27-2024 End: 44-20-7866Zarnpf emg ea extremty w/paraspinl area completeChristopher Suzie DO Work Phone: Start: 78-25-2252AAH MYOGLOBINChristopher Suzie DO Work Phone: Start: 90-18-2386BSQ THYROID STIM HORMONEChristopher Suzie DO Work Phone: Start: 10-29-3119YO angiography of headStart: 73-12-1063HR angiography of neck vesselsStart: 69-61-5579MO of head without contrastStart: 37-20-0771Gytal chest X-rayStart: 76-17-2553Lmdw tthrc r-t 2d w/wom-mode compl spec&colr dGeekatharine Howard MD Work Phone: Start: 21-89-2195Yho routine ecg w/least 12 lds w/i&r Aleah Howard MD Work Phone: Start: 01-37-4421Swyumax breast tomosynthesis Mallika Asif MD Work Phone: Start: 07-11-2024 End: 34-60-4252Fw breast w/device 1st lesion ultrasound Bassam Asif MD Work Phone: Start: 03-08-2024H/O: hysterectomyHistory of hysterectomyTrevor N Baires [employer] Work Phone: Start: 17-54-09336j rendering w/interp&postproc diff work stationSamer Fallon Aguirre MD Work Phone: Start: 39-08-9764Pzr abdomen w/o & w/contrast material Samer Fallon Aguirre MD Work Phone: Start: 24-18-1736Vvte tst prsmv instrmnt chem analyzers pr dateTrevor N Mechelle SNOWDEN Work Phone: Start: 51-26-0947Vbnho chest X-rayDO Jennie Durand Work Phone: start: 29-28-5086Skmuvosl tomography of abdomen and pelvis with contrastDO Jennie Durand Work Phone: start: 50-46-7475Hza head w/o & w/contrast material Eileen Alvarez MD Work Phone: Start: 06-00-3832ScswfimtntwnHvtyt Kasten Start: 75-83-8964DSH of headDO Jennie Durand Work Phone: start: 29-37-5848VGC venographyDO Jennie Durand Work Phone: start: 20-55-8374Sm abdomen & pelvis w/contrast materialGamaliel Vickers DO Work Phone: Start: 64-80-6157NMMOW METABOLIC PANEL W/ REFLEX TO MG FOR LOW KJordan Wisam DO Work Phone: Start: 11-84-3889Xuecn count complete auto&auto difrntl wbcJordan Wisam DO Work Phone: Start: 91-21-3035JIBBD METABOLIC PANEL W/ REFLEX TO MG FOR LOW KMegan I Mimi DO Work Phone: Start: 28-83-2508Ybqqa count complete auto&auto difrntl wbcMegan I Mimi DO Work Phone: Start: 01-30-2021 End: 07-58-9064Wuzitqhwlxlf chorionic qualitativeSitwan Mckeon MD Work Phone: Start: 35-08-1463Uafdyfyxzd microscopic onlyDavid Nash MD Work Phone: Start: 94-44-0474Lzxnk dip stick/tablet rgnt auto w/o microscopyDavid Nash MD Work Phone: Start: 71-95-3532Ro abdomen & pelvis w/contrast materialDavid Nash MD Work Phone: Start: 68-14-4425Apguk of lipaseDavid Nash MD Work Phone: Start: 31-25-8212Xuxfwqy [Moles/volume] in Serum or PlasmaDavid Nash MD Work Phone: Start: 68-48-1337Bqeawbgvto exam esophagus single contrast studyGamaliel Vickers DO Work Phone: Start: 66-09-2315Ttipc metabolic panel calcium total Gamaliel Keshav Vickers DO Work Phone: Start: 91-53-5108Wqrbo metabolic panel calcium total Gamaliel Vickers DO Work Phone: Start: 01-07-2021 End: 28-92-1989Phjd gstr rstcv px w/byp tian-en-y limb <150 cmGamaliel Vickers DO Work Phone: Start: 87-92-2754Eniai test visual color cmprsn methsGlorena Vickers [employer] Work Phone: Start: 90-68-5987Unqaz of nicotineGamaliel Vickers [employer] Work Phone: Start: 37-31-0765Cfnrq metabolic panel calcium total Gamaliel Vickers [employer] Work Phone: Start: 21-48-2512Xrcfkjfgkj exam chest 2 viewsGamaliel Vickers Work Phone: Start: 04-65-6403Pko routine ecg w/least 12 lds trcg only w/o i&rGlorena Vickers [employer] Work Phone: Start: 33-03-9349AMW REPORTHpf ScanningStart: 07-51-3594Dtunk upper gi w/wo glucagon/delay imges w/o kubGlorena Vickers Work Phone: Start: 36-36-5451FTPMU-19Luis E Sampson Work Phone: Start: 06-71-9107Dmfomxreiq plantar fasciotomyAimee Walker Start: 68-25-1098Sjtfuqgdav plantar fasciotomyAimee Valadezell Comment on above:Endoscopic plantar fasciotomy, right footStart: 56-05-4752HKOJ ELBOW ULNAR NERVE DECOMPRESSIONAimee Walker Start: 48-99-0659Flowaucblzl observation [Identifier] in Cervix by Cyto Shaq Howard MD Work Phone: [phone]-ktdfzbv y1Qmppqxc Aaron Esophagogastrostomy, antesternal or antethoracicAimee Walker ft (qualifier value)Aimee Walker Comment on above:reconstructionft (qualifier value)Jennie Durand H/O: tubal ligationAimee Walker Investigation of transfusion reactionDO Jennie Durand Work Phone: lumbar puncture to lower intracranial pressureRobert Rita Plan of Treatment DateCare ActivityDetailAuthorStart: 84-80-6811Zxxrkg Vaccines (1 of 2)Zoster Vaccines (1 of 2)[facility]: 37-37-2080Djmoyspn mellitus screeningDiabetes ScreeningUnSouthwest General Health Center: 18-17-4269Pdfkta PCP Team Chronic Disease VisitAnnual PCP Team Chronic Disease VisitRegency Hospital [facility] Westtart: 31-76-3078IL Controlled (<130/80)BP Controlled (<130/80)[facility]: 07-03-2025 End: 37-25-8280Xavpzrr encounter qxeoghogo48/20/2025 1:45 PM EDT Office Visit [facility] [address] [place] [address] Sarah Buckley MD [address] [place] [address] [facility]North [facility] EyeComment on above:ArrivedStart: 92-95-7776Dnnhid PCP Team Chronic Disease VisitAnnual PCP Team Chronic Disease VisitRegency Hospital Cleveland Westtart: 41-30-0170RV Controlled (<130/80)BP Controlled (<130/80)[facility]: 06-29-2025 End: 11-67-3072Zvtvdwa encounter vxrmnuthl31/16/2025 11:30 AM EDT [facility] Visit [facility] [address] [place] [id number] Aaliyah Francis DO [address] [place] [address] [facility] Surgical AssociatesStart: 06-08-2025 End: 66-47-0918Iyafzho encounter mlesdtxvp17/25/2025 10:15 AM EDT Office Visit [facility] [address] [facility] [address] [place] [address] Aaliyah Francis, DO [address] [facility] [address] [place] [address] [facility] Surgical AssociatesStart: 05-30-2025 Mammography of left breast specimenMM surgical specimen LTGreen Cross Hospitaltart: 04-00-9984DV Breast specimen - left ViewsGreen Cross Hospitaltart: 74-64-3120XqincrnzlGreen Cross Hospitaltart: 15-57-1717JqcvauzytGreen Cross Hospitaltart: 53-74-0181Zzwpdzebk [facility]: 05-01-2025 End: 99-89-5293Qfodvih encounter myjfcmpvk79/18/2025 2:15 PM EDT Office Visit [facility] [address] [place] [address] Aaliyah Francis, DO [address] [address] [facility] AssociatesStart: 04-13-2025 End: 57-37-2235XQS Breast - left diagnosticLeft diagnostic mammogram with tomosynthesis Imaging Routine Pseudoangiomatous stromal hyperplasia of breast Hypertrophy of breast Expected: 04/13/2025, Expires: 06/13/2026[facility] Work Phone: Comment on above:Expected: 04/13/2025, Expires: 06/13/2026Start: 04-13-2025 End: 38-33-0437JY Breast - left limitedLeft breast US limited Imaging Routine Pseudoangiomatous stromal hyperplasia of breast Hypertrophy of breast Expected: 04/13/2025, Expires: 06/13/2026[facility] HealthcareComment on above:Expected: 04/13/2025, Expires: 06/13/2026Start: 04-13-2025 End: 92-45-4319Ccanzhj encounter kvabdxetb95/31/2025 10:00 AM EDT Consult [facility] [address] [facility] [address] [place] [address] Aaliyah Francis DO [address] [facility] [address] [place] [address] [facility] Surgical AssociatesStart: 08-17-3639Gfvtne PCP Team Chronic Disease VisitAnnual PCP Team [facility] Start: 57-53-7088ZI Controlled (<130/80)BP Controlled (<130/80)[facility] Start: 89-51-9882Jbfsw microalbumin profileDTaP,Tdap,Td Vaccine (1 - Tdap) [facility] HospitalComment on above:Postponed from 12/18/2007 (Declined at this time)Start: 01-46-6635Yxxoux PCP Team Chronic Disease VisitAnnual PCP Team Chronic Disease VisitRegency Hospital Cleveland Westtart: 15-92-6545Knvgnbss measurement [facility]: 56-17-6102Opysfbdv to Scl-70 measurement [facility]: 39-07-0896Rbgmykflq complement CH50 levelGreen Cross Hospitaltart: 60-90-7625OLW antibody measurement [facility]: 15-01-9887HdtfaxzsiGreen Cross Hospitaltart: 10-20-2024 End: 12-48-5370Zolhjgy encounter kjubsjwxr51/06/2025 8:40 AM EST Office Visit CYNDI JUDD [address] [place] [address] Mague Fine NP [address] [place] [address] CYNDI HAWLEYtart: 10-04-2024 End: 11-13-6629Bhplrrg encounter isjgwnbjp03/21/2025 12:40 PM EST Appointment Radiology MRI [address] [place] [address] MRI BREAST WO/W IVCONRadiology MRIComment on above:MRI BREAST WO/W IVCONStart: 09-27-2024 End: 11-08-1291Vmhdzgq encounter procedure Azra Ospinaswedish medical center ballardComment on above: ArrivedStart: 09-21-2024 End: 27-09-8877DTN 2 ExtremitiesEMG 2 Extremities Neurology Routine Myalgia Expected: 09/21/2024, Expires: 09/21/2025[facility] Work Phone: comment on above:Expected: 09/21/2024, Expires: 09/21/2025Start: 09-21-2024 End: 64-11-6434MN Brain WO and W contrast IVMR brain w and wo contrast routine Imaging Routine Ataxia Expected: 09/21/2024, Expires: 09/21/2025[facility] Comment on above:Expected: 09/21/2024, Expires: 09/21/2025Start: 09-21-2024 End: 36-71-9999Kurhpprww, serumMyoglobin, serum Lab Routine Myalgia Expected: 09/21/2024 (Approximate), Expires: 09/21/2025[facility] HealthcareComment on above: Expected: 09/21/2024 (Approximate), Expires: 09/21/2025Start: 09-21-2024 End: 71-42-4940Kjbcfjh Ab [Titer] in Serum by ImmunofluorescenceANA Lab Routine Myalgia Expected: 09/21/2024 (Approximate), Expires: 09/21/2025[facility] Comment on above:Expected: 09/21/2024 (Approximate), Expires: 09/21/2025Start: 09-21-2024 End: 10-63-0871Rbzdzjwfgts [Units/volume] in Serum or PlasmaTSH Lab Routine Myalgia Expected: 09/21/2024 (Approximate), Expires: 09/21/2025[facility] Comment on above:Expected: 09/21/2024 (Approximate), Expires: 09/21/2025Start: 09-19-2024 End: 61-25-0097Misdbcm encounter /06/2025 3:00 PM EST Office Visit [facility] [address] [address] Aleah Howard MD [address] [facility] [address] [place] [address] [facility]aiswedish medical center ballardStart: 09-13-2024 End: 78-84-5272Vpivger encounter procedure Azra WallsComment on above:ER Follow upStart: 08-24-2024 End: 30-42-3763epkmhtmtna30/11/2024 11:20 AM [facility] [address] [place] [address] [place] [address] [place] [address] [place], [place] [id number] Return in about 4 weeks (around 08/22/2024)Family Medicine Comment on above:Return in about 4 weeks (around 08/22/2024)Start: 08-23-2024 End: 03-92-4885Dmzhmpt encounter procedureUH [facility] ballardStart: 08-08-2024 End: 73-27-3993CF Heart Perfusion W stress and W radionuclide IVNuclear Stress Test Cardiac Nuclear Medicine Routine Angina pectoris Shortness of breath Palpitations Family history of ischemic heart disease Primary hypertension Expected: 08/08/2024 (Approximate),Expires: 08/08/2025[facility] Work Phone: Comment on above:Expected: 08/08/2024 (Approximate), Expires: 08/08/2025Start: 08-08-2024 End: 20-72-2322AP Heart TransthoracicTransthoracic Echo Complete Echocardiography Routine Angina pectoris Shortness of breath Palpitations Family history of ischemic heart disease Primary hypertension Expected: 08/08/2024 (Approximate),Expires: 08/08/2026[facility] Work Phone: Comment on above:Expected: 08/08/2024 (Approximate), Expires: 08/08/2026Start: 08-05-2024 End: 54-79-6622owolirvgwlYppclqa HealthcareComment on above:Fhx of pancreatic cancer, Phx of pancreatic mass Action taken: Marked in OnBase for Schedulers Start: 07-29-2024 End: 19-26-8714Ilrgglm encounter qsyxnacnc58/15/2024 2:40 PM EST Office Visit Family Medicine [address] [place] [address] [place] [address] [place] [address] Return in about 4 weeks (around 07/29/2024)Family Medicine Comment on above:Return in about 4 weeks (around 07/29/2024)Start: 07-27-2024 End: 54-75-1304Jhtemvo encounter ynmeccuop41/13/2024 11:30 AM EST Office Visit [facility] [address] [address] Kiera Gilmore DO [address] [place] [address] Teresa David, 07/27/24, 1130am, ty per emailBreast CenterComment on above:Teresa David, 07/27/24, 1130am, ty per emailStart: 07-26-2024 End: 45-63-6772ghpzppaswh17/12/2024 8:45 AM EST Results Only [facility] [address] [place] [id number] Iron deficiency anemia, unspecified iron deficiency anemia type [ D50.9][facility] LaboratoryComment on above:Iron deficiency anemia, unspecified iron deficiency anemia type [D50.9]Start: 07-25-2024 End: 45-56-4063Tcjqrdr encounter tpgaznvxu92/11/2024 3:00 PM EST Office Visit Family Medicine [address] [place] [address] [place] [address] [place] [address] H f/uFamily MedicineComment on above:H f/uStart: 07-25-2024 End: 89-82-0671WCM W Auto Differential panel - BloodCOMPLETE BLOOD COUNT AND DIFFERENTIAL Lab Routine Iron deficiency anemia, unspecified iron deficiency anemia type Expected: 07/25/2024, Expires: 10/24/2024[facility] ClinicComment on above:Expected: 07/25/2024, Expires: 10/24/2024Start: 07-25-2024 End: 80-08-1020Qygaidnk [Mass/volume] in Serum or PlasmaFERRITIN Lab Routine Iron deficiency anemia, unspecified iron deficiency anemia type Expected: 07/25, Expires: 10/24/2024[facility] Work Phone: Comment on above:Expected: 07/25/2024, Expires: 10/24/2024Start: 07-25-2024 End: 49-66-7430Pbtd and Iron binding capacity panel - Serum or PlasmaIRON AND TIBC Lab Routine Iron deficiency anemia, unspecified iron deficiency anemia type Expected:07/25/2024, Expires: 10/24/2024[facility] ClinicComment on above: Expected: 07/25/2024, Expires: 10/24/2024Start: 07-11-2024 End: 87-40-7596Lcwxpxk encounter /28/2024 8:30 AM EDT Appointment Mammography [address] [place] [id number] lt breast us core bxMammographyComment on above:lt breast us core bxStart: 07-04-2024 End: 76-55-3946Daunfff encounter procedureAppleton Municipal HospitalComment on above: 11:30A IMAGING; Breast lump with pain x 1 yr; imaging done at [facility](pt hand caring images); Bx recommended by PCP; blood nipple discharge- spontaneous- last noticed 8 months agoBreast lump with pain x 1 yr; imaging done at [facility](pt hand caring images); Bx recommended by PCP; blood nipple discharge- spontaneous- last noticed 8 months agoStart: 07-01-2024 End: 619244-ldrlhuijhavnge D3 [Mass/volume] in Serum or PlasmaVITAMIN D 25 HYDROXY Lab Routine Serum calcium elevated Expected: 07/01/2024, Expires: 09/30/2024[facility] ClinicComment on above:Expected: 07/01/2024, Expires: 09/30/2024Start: 07-01-2024 End: 23-61-3408Vzezwszdjqaeh metabolic 2000 panel - Serum or PlasmaCOMPREHENSIVE METABOLIC PANEL Lab Routine Serum calcium elevated Expected: 07/01/2024, Expires: 09/30/2024[facility] ClinicComment on above:Expected: 07/01/2024, Expires: 09/30/2024Start: 07-01-2024 End: 12-49-6770Xkwwamzxzl.intact [Mass/volume] in Serum or PlasmaPTH INTACT Lab Routine Serum calcium elevated Expected: 07/01/2024, Expires: 09/30/2024 [facility] ClinicComment on above:Expected: 07/01/2024, Expires: 09/30/2024Start: 07-01-2024 End: 04-90-1869Xxvakkg encounter /18/2024 11:00 AM EDT Office Visit Family Medicine [address] [place] [address] [place] [address] [place] [address] est care. Updated PCP per navigation rules.Family Medicine Comment on above:est care. Updated PCP per navigation rules.Start: 05-31-2024 End: 94-33-0989Hqxogem encounter isdcsqaxa09/17/2024 11:00 AM EDT Office Visit Family Medicine [address] [place] [address] Lisha Bianchi, DIPPER AND DRIER.REFUSE DRIVER [address] [place] [address] ED follow upFamily MedicineComment on above:ED follow upStart: 05-24-2024 End: 95-35-9275Tdjunqr encounter abzkramip66/10/2024 11:15 AM EDT Office Visit Endocrinology [address] [place] [phone] Austin Leon, DIPPER AND DRIER.REFUSE DRIVER [address] [place] [address] Class 1 obesity due to excess calories without serious comorbidity with body maEndocrinologyComment on above:Class 1 obesity due to excess calories without serious comorbidity with body maStart: 54-88-7774LUNTW-19 Vaccine ()COVID-19 Vaccine ()[facility] CenterStart: 65-21-5569WEXPB-19 Vaccine ()COVID-19 Vaccine ()[facility]: 92-26-8873Dnxrbdgoc vaccinationRegency Hospital Cleveland Westtart: 03-01-2024 End: 81-64-3027Uhxuikv encounter acqpopspp13/18/2024 11:20 AM EDT Appointment Radiology [address] [place], [place] [phone] MRI Panc/Tanmay Wo/W IvconRadiologyComment on above:MRI Panc/Tanmay Wo/W IvconStart: 01-06-2024 End: 17-44-5996nmvoisudqv48/24/2024 8:30 AM EDT Results Only [facility] [address] [place] [address] [facility] LaboratoryStart: 01-04-2024 End: 27-49-8254SUE panel - Blood by Automated countCOMPLETE BLOOD COUNT Lab Routine Routine health maintenance Expected: 01/04/2024, Expires: 04/04/2024 [facility] Work Phone: Comment on above:Expected: 01/04/2024, Expires: 04/04/2024Start: 01-04-2024 End: 48-63-4814Qpmznljgbrwcy metabolic 2000 panel - Serum or PlasmaCOMPREHENSIVE METABOLIC PANEL Lab Routine Routine health maintenance Expected: 01/04/2024, Expires:04/04/2024[facility] ClinicComment on above:Expected: 01/04/2024, Expires: 04/04/2024Start: 01-04-2024 End: 12-79-5515Ivspcxmmxw A1c in BloodHEMOGLOBIN A1C Lab Routine Routine health maintenance Expected: 01/04/2024, Expires: 04/04/2024[facility] ClinicComment on above:Expected: 01/04/2024, Expires: 04/04/2024Start: 01-04-2024 End: 00-28-1406Kvqmkdxkd C virus Ab [Presence] in SerumHEPATITIS C ANTIBODY IA WITH CONFIRMATION Lab Routine Routine health maintenance Expected: 01/04/2024, Expires: 04/04/2024[facility] ClinicComment on above:Expected: 01/04/2024, Expires: 04/04/2024Start: 01-04-2024 End: 47-13-2267CTH 1+2 Ab [Presence] in Serum or Plasma by ImmunoassayHIV 1/2 COMBO WITH REFLEX TO DIFFERENTIATION Lab Routine Routine health maintenance Expected: 01/04/2024, Expires: 04/04/2024[facility] ClinicComment on above: Expected: 01/04/2024, Expires: 04/04/2024Start: 01-04-2024 End: 39-52-6667Fbpje 1996 panel - Serum or PlasmaLIPID PANEL BASIC Lab Routine Routine health maintenance Expected: 01/04/2024, Expires: 04/04/2024[facility] ClinicComment on above:Expected: 01/04/2024, Expires: 04/04/2024Start: 04-05-0890PifdfdmrzGreen Cross Hospitaltart: 09-18-2023 End: 18-01-3365Gxy transoral biopsy single/multipleEGD BIOPSY Gastroesophageal reflux disease, unspecified whether esophagitis present Obesity (BMI 30-39.9) 09/18/2023 8:14 AM SnipdMercy Health Willard HospitalStart: 73-37-7077CRVZA-19 Vaccine ()COVID-19 Vaccine ( season)[facility]Start: 31-30-6564Uzbwqbrur vaccinationInfluenza Vaccine (#1) [facility]: 16-95-3417Qfzqbrrrc vaccinationFlu vaccine (#1)[facility]ENTERStart: 00-00-5913Yphksnjkhtfbr fluid cultureGreen Cross Hospitaltart: 08-19-2022 End: 93-29-0702PtcltdljzGreen Cross Hospitaltart: 62-86-8613KwymrwclhGreen Cross Hospitaltart: 96-36-4342Jpxlisu [Mass/volume] in Cerebral spinal fluidGreen Cross Hospitaltart: 47-84-8522Koddftx [Mass/volume] in Cerebral spinal fluidSt. Rita'S Hospital CenterStart: 08-12-2022 [facility] CenterStart: 50-50-9858Twrwxhbd admissionGreen Cross Hospitaltart: 61-42-3779Lssvmabi to neurologistGreen Cross Hospitaltart: 36-22-2533LlqyneotfGreen Cross Hospitaltart: 60-76-7779Jfzblvixf vaccinationRegency Hospital Cleveland Westtart: 89-47-1500TILQJ-19 VACCINE (3 - Booster for Pfizer series)COVID-19 VACCINE (3 - Booster for Pfizer series) [facility]: 63-05-2600EBGPNPLXGZ ASSESSMENTDEPRESSION ASSESSMENT [facility]: 21-86-6445YRGUD-19 VACCINE (3 - Booster for Pfizer series)COVID-19 VACCINE (3 - Booster for Pfizer series)[facility]: 99-00-4829Hmudd-19 Vaccine (3 - Pfizer series)Covid-19 Vaccine (3 - Pfizer series)[facility]: 03-06-2021 End: 48-18-6707Oriqnbc encounter /23/2021 Office Visit Bariatrics Gamaliel Vickers DO [address] [facility] [address] [place] [phone] [facility] Invasive Bariatric SurgStart: 02-20-2021 End: 26-98-4061Jkznhmt encounter parpsrcri78/09/2021 Office Visit Bariatrics Gamaliel Vickers DO [address] [facility] [address] [place] [phone] [facility] BARIATRIC Part [facility] HospitalStart: 01-18-2021 End: 70-23-3786Ontpuh Visit01/18/2021 Office Visit Bariatrics Gamaliel Vickers, [address] [facility] [address] [place] [phone] Cyndie Vick Invasive Bariatric SurgStart: 01-07-2021 End: 89-51-9126Ytfyipuw EncounterSTVZ ORComment on above:XI LAPAROSCOPIC ROBOTIC GASTRIC BYPASS TIAN-EN-Y, LIVER BIOPSY, EGD- GI UNIT SCHEDULED.Start: 01-03-2021 End: 42-02-9729Kcookb VisitProv[facility] Invasive Bariatric SurgComment on above: ArrivedStart: 12-31-2020 End: 24-18-0450OPRDL-COVID- Lab Routine Preop testing Expected: 12/31/2020, Expires: 12/31/2021[facility] Work Phone: comment on above:Expected: 12/31/2020, Expires: 12/31/2021tart: 11-21-2020 End: 38-22-1220Vcfxfr Visit11/21/2020 Office Visit Bariatrics Ganesh Cordero, DIPPER [employer] DRIER - REFUSE DRIVER [address] [facility] [address] [place] [address] [facility] BARIATRIC Part [facility]ertart: 11-01-2020 End: 43-42-7295Pnsklequgez95/18/2021 Appointment Radiology Radiologist [facility] RadiologyStart: 10-24-2020 End: 41-50-5950Fcahyj [facility] BARIATRIC Part [facility] Start: 90-47-2217Dbziae Wellness Visit (AWV)Annual Wellness Visit (AWV)[facility] HospitalSAJIStart: 65-89-7846DPP TESTINGHPV TESTINGRegency Hospital Cleveland Westtart: 01-00-9601Derksexld for malignant neoplasm of cervixB[facility]OU[facility] Start: 25-05-3183Aplbunmyg for malignant neoplasm of cervixCrystal Clinic Orthopedic CenterStart: 96-48-5448BBiV/Tdap/Td Vaccines (1 - Tdap)DTaP/Tdap/Td Vaccines (1 - Tdap)[facility]: 28-32-7171DVR TESTING PAP TESTINGRegency Hospital Cleveland Westtart: 46-22-8596Fzqwuleeo for malignant neoplasm of cervixBon Secours [facility]: 26-20-3481VLmT/Tdap/Td vaccine (1 - Tdap) DTaP/Tdap/Td vaccine (1 - Tdap)[facility]: 12-18-2007 Pneumococcal vaccinationPneumococcal Vaccine (1 of 2 - PCV)[facility] Start: 07-13-8085Safelvfyxqjb Vaccine: Pediatrics and At-Risk Adult Patients (1 of 2 - PCV)Pneumococcal Vaccine: Pediatrics and At-Risk Adult Patients (1 of 2 - PCV)[facility]: 58-80-3007Jcpnc microalbumin profileRegency Hospital Cleveland Westtart: 98-86-7118QORZKK PCP TEAM CHRONIC DISEASE VISIT ANNUAL PCP TEAM CHRONIC DISEASE VISITRegency Hospital Cleveland Westtart: 01-15-4438PF CONTROLLED (<130/80)BP CONTROLLED (<130/80)[facility]: 2006 HEPATITIS C SCREENINGHEPATITIS C SCREENINGRegency Hospital Cleveland Westtart: 2006 Hepatitis C screeningBon Secours Memorial Regional Medical Center: 13-15-5439KAA SCREENINGHIV SCREENINGRegency Hospital Cleveland Westtart: 92-01-3694OMY screeningHIV ScreeningRegency Hospital Cleveland Westtart: 89-42-8299XJWWH-19 Vaccine (1)COVID-19 Vaccine (1)[facility] Phone: start: 77-27-3184RAM screeningHIV screenBon Secours Memorial Regional Medical Center: 14-00-3635Blpepozwl vaccinationVaricella Vaccines (1 of 2 - 13+ 2-dose series)[facility]: 08-35-6940Rvhhy depression screening assessmentDEPRESSION SCREENINGRegency Hospital [facility] Westtart: 32-54-8394SFJBI-19 Vaccine (1)COVID-19 Vaccine (1)[employer] Phone: start: 81-92-7637Dpoafbrtbh MonitoringDepression MonitoringBon Secours Memorial [facility] Center: 05-36-7472Dhkcczzub B Vaccine (2 of 3 - 3-dose series)Hepatitis B Vaccine (2 of 3 - 3-dose series)[facility] Start: 04-22-1820Twoujfobb B Vaccines (2 of 3 - 3-dose series)Hepatitis B Vaccines (2 of 3 - 3-dose series)[facility]: 94-41-9777VKSSHFFCSDOU (1 - PCV)PNEUMOCOCCAL (1 - PCV)[facility]: 22-97-6553Diiuyowpfraq 0-64 years Vaccine (1 - PCV)Pneumococcal 0-64 years Vaccine (1 - PCV)[facility]: 89-78-6563Egqlmukgapsn vaccinationRegency Hospital Cleveland Westtart: 04-35-3071Dfkhhlzohzod Vaccine: Pediatrics (0 to 5 Years) and At-Risk Patients (6 to 64 Years) (1 of 2 - PCV)Pneumococcal Vaccine: Pediatrics (0 to 5 Years) and At-Risk Patients (6 to 64 Years) (1 of 2 - PCV)[facility]: 46-61-9025Xogvwjzfs vaccine (1 of 2 - 2-dose childhood series)Varicella vaccine (1 of 2 - 2-dose childhood series) [facility]: 86-70-3289PAUPTUIDB B (1 of 3 - 3-dose series) HEPATITIS B (1 of 3 - 3-dose series)[facility]: 81-10-2984Rokpfjxlx B Vaccine (1 of 3 - 3-dose series)Hepatitis B Vaccine (1 of 3 - 3-dose series) [facility]: 98-12-4785Vxcquhzwj C screeningHepatitis C [facility]: 70-05-3059HTA screeningHIV ScreeningUnSouthwest General Health Center: 57-47-2604Etkor panelLipid PanelShelby Memorial Hospital: 04-05-1989Medicare Annual Wellness (AWV)Medicare Annual Wellness (AWV)[facility] CenterStart: 04-05-1989Medicare Annual Wellness VisitMedicare Annual Wellness Visit (AWV)[facility]24 hour urine measurementSelect Medical Specialty Hospital - Southeast OhioAdenosine monophosphate.cyclic [Moles/volume] in Serum or PlasmaSelect Medical Specialty Hospital - Southeast OhioAlbumin [Mass/volume] in Serum or PlasmaSelect Medical Specialty Hospital - Southeast [place] Albumin/Globulin ratioSelect Medical Specialty Hospital - Southeast OhioBacteria identified in Unspecified specimen by Aerobe cultureKettering Health Dayton Work Phone: Bacteria identified in Unspecified specimen by Anaerobe cultureKettering Health Dayton Work Phone: Basic Metabolic Panel w/ Reflex to MGBasic Metabolic Panel w/ Reflex to MG Lab Routine Daily until discontinued starting 02/01/2021, 1 completedToledo HospitalCloud9 IDE Work Phone: comment on above:Daily until discontinued starting 02/01/2021, 1 completedBeta 2 glycoprotein 1 IgG Ab [Units/volume] in Serum [facility] OhioBeta 2 glycoprotein 1 IgM Ab [Units/volume] in SerumSelect Medical Specialty Hospital - Southeast [place] End: 33-22-5107Xyzce glucose - POCTBlood glucose - POCT Point of Care Testing Routine One Time for 1 Occurrences starting 09/18/2023 until 4[facility] HOSPITALBubble & Balm [facility] SYSTEMCompine rest [facility] on above:One Time for 1 Occurrences starting 09/18/2023 until 4CANNABINOID CONF, URCANNABINOID CONF, UR Lab Routine Panic disorder 01/04/2024 10:20 AM EDTCleveland ClinicCardiolipin IgA Ab [Units/volume] in Serum by ImmunoassaySelect Medical Specialty Hospital - Southeast [place] Cardiolipin IgG Ab [Units/volume] in Serum by ImmunoassaySelect Medical Specialty Hospital - Southeast OhioCardiolipin IgM Ab [Units/volume] in Serum by ImmunoassaySelect Medical Specialty Hospital - Southeast OhioCell count, cerebrospinal fluidSt. Rita'S Hospital Ctr Work Phone: Centromere protein B Ab [Units/volume] in Serum [facility] OhioCerebrospinal fluid examinationKettering Health Dayton Work Phone: Chromatin Ab [Units/volume] in Serum or Plasma [facility] OhioComplement C3 [Mass/volume] in Serum or Plasma [facility] OhioComplement C4 [Mass/volume] in Serum or Plasma [facility] OhioContinuous pulse oximetryPulse oximetry, continuous Respiratory Care Routine Every 4hr until discontinued starting 01/07/2021[facility] HospitalCloud[facility] Work Phone: comment on above:Every 4hr until discontinued starting 01/07/2021 End: 50-40-4076KFAPV-19COVID-19 Lab Routine Preoperative testing 1 Occurrences starting 10/26/2020 until 10/26/2020[facility] Work Phone: comment on above:1 Occurrences starting 10/26/2020 until 10/26/2020OVID-19[facility] Work Phone: End: 58-58-7407EIHEU-19COVID-19 Lab Routine Preop testing 1 Occurrences starting 01/03/2021 until 01/03/2021[facility] HospitalCloud[facility] IDE Work Phone: comment on above:1 Occurrences starting [...] Center Work Phone: Comment on above:Ordered: 07/01/2024Electrophoresis: ggsud-4-hzjbnpluMtvtvadttSelect Medical Specialty Hospital - Southeast OhioElectrophoresis: ufmcd-4-zcjdpszaVcjokygjvSelect Medical Specialty Hospital - Southeast OhioElectrophoresis: beta-globulin [facility] OhioElectrophoresis: gamma globulinSelect Medical Specialty Hospital - Southeast OhioEvaluation of cerebrospinal fluidKettering Health [facility] Work Phone: Fluid sample volume measurementKettering Health [facility] Work Phone: Globulin [Mass/volume] in SerumSelect Medical Specialty Hospital - Southeast OhioGlucose [Mass/volume] in Cerebral spinal fluidKettering Health Dayton Work Phone: Histone IgG Ab [Units/volume] in Serum by Immunoassay [facility] OhioHomogenous nuclear Ab pattern [Titer] in Serum [facility] OhioIgA [Mass/volume] in Serum or PlasmaSelect Medical Specialty Hospital - Southeast OhioIgG [Mass/volume] in Serum or PlasmaSelect Medical Specialty Hospital - Southeast OhioIgM [Mass/volume] in Serum or [facility] HospitalImmunofixation for UrineSelect Medical Specialty Hospital - [facility] [place] End: 28-34-2395YYEFTNSB PACU OXYGEN THERAPY PROTOCOLInitiate PACU Oxygen Therapy Protocol Respiratory Care Routine Continuous until discontinued starting 09/18/2023ON [facility] VALLEY HOSPITALComment on above:Continuous until discontinued starting 09/18/2023Jo-1 extractable nuclear Ab [Units/volume] in SerumSelect Medical Specialty Hospital - Southeast OhioLupus anticoagulant [Interpretation] in Platelet poor plasmaSelect Medical Specialty Hospital - Southeast OhioMeasurement of monoclonal protein concentrationSelect Medical Specialty Hospital - Southeast OhioMeningitis+Encephalitis pathogens DNA and RNA panel - Cerebral spinal fluid by JOSÉ MIGUEL with non-probe detection [facility] Work Phone: Microscopic observation [Identifier] in Unspecified specimen by Gram stainSt. Rita'S Hospital Ctr Work Phone: End: 58-23-5829VC Breast - bilateral WO and W contrast IVMRI BREAST WO/W IVCON BILATERAL Radiology Routine Mass of upper outer quadrant of left breast Fibroc ystic breast changes of both breasts Mastodynia Inversion of left nipple Bloody discharge from leftnipple Nipple discharge 1 Occurrences starting 07/04/2024 until 08/03/2025[facility] Work Phone: Comment on above:1 Occurrences starting 07/04/2024 until 08/03/2025 End: 74-83-4837EA Breast - left WO and W contrast IVMRI BREAST BX WO/W IVCON LEFT Radiology Routine Mass of upper outer quadrant of left breast 1 Occurrences starting 03/08/[address] [facility] Work Phone: Comment on above:1 Occurrences starting 03/08/2024 until 04/07/2025 End: 89-55-3598Bfy head w/o & w/contrast materialMRV BRAIN WO/W IVCON Radiology Routine Idiopathic intracranial hypertension 1 Occurrences starting 11/20/[address] [facility] Work Phone: comment on above:1 Occurrences starting 11/20/2022 until 12/20/2023Myoglobin [Mass/volume] in Serum or PlasmaSelect Medical Specialty Hospital - Southeast OhioNebulizer therapyHHN Treatment Respiratory Care Routine TID until discontinued starting 01/07/2021[facility] HospitalCloud[facility] Work Phone: comment on above:TID until discontinued starting 01/07/2021Nuclear Ab [Titer] in SerumSelect Medical Specialty Hospital - Southeast OhioNucleated cells [#/volume] in Cerebral spinal fluid by Manual countSt. Rita'S Hospital Ctr Work Phone: Oxygen therapy [Minimum Data Set][employer], [place] Comment on above:Daily until discontinued starting 09/28/2020ail until discontinued starting 01/07/2021ail until discontinued starting 01/31/2021 Oxygen therapy [Minimum Data Set]Initiate Oxygen Therapy Protocol Respiratory Care Routine As Needed until discontinued starting 09/18/2023ON [employer] Work Phone: comment on above:As Needed until discontinued starting 09/18/2023atient EducationSt. Rita'S Hospital Ctr Work Phone: Patient referralSt. Rita'S Hospital Ctr Work Phone: Phase I & II - metered glucosePhase I & II - metered glucose Point of Care Testing Routine As Needed until discontinued starting 09/28/2020T[facility]edo HospitalMashup Arts, [place]Comment on above:As Needed until discontinued starting 09/28/2020 End: 32-62-8870Oeqmdgywt, urine POCTPregnancy, urine POCT Point of Care Testing Routine One Time for 1 Occurrences starting 09/28/2020 until 09/28/2020T[facility]edo HospitalMashup Arts, KYComment on above:One Time for 1 Occurrences starting 09/28/2020 until 09/28/2020 End: 46-86-2559Tcvapxztv, urine POCTPregnancy, urine POCT Point of Care Testing Routine One Time for 1 Occurrences starting 09/18/2023 until 4BON EnsequenceComment on above:One Time for 1 Occurrences starting 09/18/2023 until 4Protein [Mass/volume] in Cerebral spinal fluid [facility] Work Phone: Protein [Mass/volume] in Serum or PlasmaSelect Medical Specialty Hospital - Southeast OhioProtein [Mass/volume] in UrineSelect Medical Specialty Hospital - Southeast OhioReagin Ab [Presence] in Serum by RPDoctors HospitalRed blood cell countSt. Rita'S Hospital Ctr Work Phone: Rheumatoid factor [Units/volume] in Serum or Plasma Green Cross Hospitalerum immunofixationGreen Cross Hospitaljogrens syndrome-A extractable nuclear Ab [Units/volume] in Serum [facility] Cross Hospitaljogrens syndrome-B extractable nuclear Ab [Units/volume] in SerumGreen Cross Hospitalmith extractable nuclear Ab [Units/volume] in [facility] Medical CenterPECIMEN VALIDITY, URINESPECIMEN VALIDITY, URINE Lab Routine Panic disorder 01/04/2024 10:20 AM EDTClevelasheville specialty hospital ClinicSpirometry panelIncentive spirometry Respiratory Care Routine Every 2hr while awake until discontinued starting 01/07/2021[facility] Work Phone: comment on above:Every 2hr while awake until discontinued starting 01/07/2021urgical PathologySurgical Pathology Lab Routine Release Upon Ordering for 1 Occurrences starting 09/28/2020[facility], [place] Comment on above:Release Upon Ordering for 1 Occurrences starting 09/28/2020 [facility] Work Phone: Comment on above:Release Upon Ordering for 1 Occurrences starting 07/11/2024, 1 completedThrombin timeSelect Medical Specialty Hospital - Southeast OhioUS Breast - left limitedUS BREAST LTD LEFT Radiology Routine Mass of upper outer quadrant of left breast 07/04/2024 12:13 PM [facility] Immunizations Immunization DateImmunizationNotesCare MllgunxgZfpyrgzs19-32-1506SDVK-NaI-3 (COVID-19) mRNA BNT-162b2 Gifty Walker [phone]-JsudcCorey Hospital Primary Care [id number]-XbS-2 (COVID-19) mRNA BNT-162b2 vax Aimee Walker 387-1982Akylls-NqpwwCorey Hospital [facility] Care 11631996-36-6387jbyshkoog virus vaccine, unspecified formulationSaileen Alvarez MD Work Phone: cSouthwest General Health CenterXqzneq81-10-1371strklufbf nasal, unspecified formulationTrevor Baires DO Work Phone: [facility] HospitalRfvmnz72-93-9590dxknscafk virus vaccine, unspecified formulationZhaneletha Valadezell [phone]-NgkrgCorey Hospital Primary Care 10563966-85-1218akllhvkqx, injectable, quadrivalent, preservative freeTrevor Baires DO Work Phone: [facility] HospitalWfafcj17-66-9617gnxleipyd B vaccine, pediatric or pediatric/adolescent dosageTrevor Baires DO Work Phone: [facility] HospitalPdmpcv58-01-1201xvlqbtd, mumps and rubella virus vaccineTrevor Baires DO Work Phone: [facility] HospitalNEGATED: Highlighted row has not occurred!00-79-9113scvxolxxr virus vaccine, unspecified formulationZhaneletha Valadezell [phone]-YyomsCorey Hospital Primary Care Payers DatePayer CategoryPayerPolicy [id number] 2024Medicare (Managed Care)[id number] [id number] MEDICAID [facility] MEDICAID [id number] 2021-Present [phone] [address] [place] [address] [id number] 2022Medicaid [id number] 2022MedicareHUMANAMedicareHUMANA MEDICARE HUMANA MEDICARE PPO [id number] 2021-[facility] [phone] [address] [address] [place] [address] [id number] 2021Medicare [id number] 1.2.840.117998.1.13.239.2.7.3.461074.315 2018Medicare 1.2.840.610473.1.13.159.2.7.3.982564.315 [id number] 2..1.601605.3.579.2.31280-45-6368Nxqeoty51953159 2..1.668267.3.579.2.90692-32-7533Wcaixnk421585985 2..1.417420.3.579.2.75233-74-1895Mwywvyu8963537 2.0.1.578539.3.579.2.89951-87-3698Ltcvkxg2179279 2.0.1.109425.3.579.2.55363-66-9109Sgmygfl0745484 2.0.1.469961.3.579.2.37899-38-5909Wcnvuau8308129 2.0.1.302385.3.579.2.52749-28-4488Cjzceiu2640488 2.16.840.1.358628.3.579.2.15549-77-9972Ijzpryq9118352 2.16840.1.997366.3.579.2.03100-79-6491Yicgyeb5618795 2.16840.1.872020.3.579.2.21039-94-7263Iblpqah9798321 2.16840.1.899137.3.579.2.96028-15-5747Rnsofta2498773 2.16840.1.170838.3.579.2.43943-80-1799Xznxjkh4653501 2.0.1.378097.3.579.2.80488-53-0904Xfhngnh0556195 2.840.1.545753.3.579.2.58468-82-8643Awjxrdp27620644 2.0.1.192089.3.579.2.95432-05-1372Uqgpbgq49129425 2.0.1.037065.3.579.2.23392-21-5424Xorejwc82852903 2.0.1.573567.3.579.2.17999-75-0775Hwssgjs28834382 2..1.276819.3.579.2.51130-55-8799Mzipdim20398811 2.840.1.035292.3.579.2.64675-49-1143Dvzwend94991141 2.160.1.130806.3.579.2.91555-81-8613Qjcxirb64763775 2.16840.1.309584.3.579.2.32038-63-6467Omgrbop06851376 2.840.1.417464.3.579.2.59960-70-0532Kdmfrta99191572 2.16.840.1.564995.3.579.2.24087-99-3580Mugfatm91968990 2.16.840.1.601358.3.579.2.88814-84-3289Hdavsez41987328 2.16.840.1.823104.3.579.2.69998-47-9760Rqrvtue03449634 2.16840.1.543113.3.579.2.622319-83-8820Qvpzfqd90034045 2.16840.1.541125.3.579.2.54735-04-9958Rhvpowp34922116 2.16840.1.421985.3.579.2.75126-11-8962Nmihfyf14092414 2.840.1.455402.3.579.2.19934-31-6781Fvzxpqc92447251 2.16840.1.079345.3.579.2.53881-39-1304Ucroxew37573766 2.840.1.281758.3.579.2.93796-26-9645Lxyguyj791822399 2.16840.1.572541.3.579.2.98026-22-9257Muwmxtb362351304 2.840.1.106115.3.579.2.752792-73-7490Xgbnios31117468 2.16.840.1.014377.3.579.2.91136-01-8864Ycepgco30368536 2.16840.1.408351.3.579.2.95034-05-8083Fyekrgp36439509 2.16840.1.353090.3.579.2.27585-30-4787Dqskwxe03228270 2.16840.1.091993.3.579.2.34011-96-7345Dpnxwmd34574629 2.16.840.1.393158.3.579.2.31652-53-6844Btlruit62734198 2.16.840.1.312286.3.579.2.92900-05-1432Zjflyoy89315305 2.16.840.1.133286.3.579.2.99187-70-9182Flsorao35898319 2.16840.1.738163.3.579.2.38922-30-9661Mcufapf14344769 2.16840.1.268153.3.579.2.78786-00-9081Vurodtc01832583 2.840.1.502924.3.579.2.74690-52-6184Cdyrgok33224025 2.840.1.403907.3.579.2.01549-18-3606Pdbcpae73352586 2.840.1.576179.3.579.2.63087-76-8624Nskmxkk55424129 2.16840.1.361289.3.579.2.44969-84-2931Uuulqal33487463 2.16840.1.128098.3.579.2.70596-81-1859Uwnhovv68631953 2.16840.1.808540.3.579.2.78670-78-9218Rbqpzew01259372 2.16840.1.424541.3.579.2.14516-24-8263Dpqhvwe67808905 2.16.840.1.685271.3.579.2.55307-32-7048Vtqsxii52971001 2.16840.1.112233.3.579.2.64150-33-1237Bpeaxwt05679158 2.16840.1.239915.3.579.2.71033-51-7094Flgorwt54638620 2.16840.1.916835.3.579.2.16670-26-7065Mmnereu21426429 2.16840.1.593094.3.579.2.97557-21-8077Gfaycll00887297 2.840.1.955098.3.579.2.821547-68-0906Tdgkxrj68435769 2.0.1.900717.3.579.2.451695-86-2565Grrthvu21759500 2.840.1.299864.3.579.2.265714-49-4230Vnmkoaq36920927 2.0.1.425657.3.579.2.268161-98-3833Aohfgtv75323446 2.0.1.814992.3.579.2.574156-52-2715Xjmksib04296282 2..1.976479.3.579.2.905618-53-8661Fqxmmib6443982 2.840.1.383115.3.579.2.022840-90-4196Qsgtqha8856976 2.0.1.690131.3.579.2.347821-01-5955Rdrpauo25816738 2.840.1.768732.3.579.2.80051-67-2157Oyguhec87186035 2.840.1.477143.3.579.2.46661-62-6871Pdnloks67668307 2.840.1.909572.3.579.2.78130-12-4003Pyeubxm91980267 2.840.1.283775.3.579.2.50993-09-6486Twnjmgx29914182 2..1.779513.3.579.2.04469-94-6983Beofhah25129547 2..1.512866.3.579.2.45740-45-6222Absfnxy21544181 ..1.437573.3.579.2.727 [id number] 1..900452.1.13.239.2.7.3.457996.52978-92-2863Utjjkkq Health Insurance [id number] 1g45o39f-zjum-4f97-g323-6a894iw6l99740-68-6346Jhnx-xhb 73822870-q84j-9210-y5n1-2n8oh53u7c4lBibkodg Health XsodgddqyFPZL77UW 6e17938g-87to-2mox-76k1-7w5f60t7qz83Kiosjme11812930 .1.689974.3.579.2.539Kdwhldx98771693 ..1.037149.3.579.2.531 Kxxlkqb73455170 ..1.790628.3.579.2.411Vrefcbx44683568 .1.309769.3.579.2.289Asjrgfg63963940 ..1.629403.3.579.2.531 Qglgmuq95123501 2..1.330402.3.579.2.802Kacccry70382289 2..1.503035.3.579.2.329Uvmvnmf42562116 2..1.316209.3.579.2.531 Ycgiksb31353137 2..1.901430.3.579.2.531 Social History DateTypeDetailFacilityStart: 09-28-2020 End: 51-17-8934Crisejs smoking status [place] Start: 08-12-2022 End: 63-41-6847Qhrnmpn of tobacco useCurrent smokerBellflower, [place]Start: 09-28-2020 End: 03-75-4910Lvcvrnw use and exposureNever usedUniversity Hospitals Geneva Medical Centerart: 09-28-2020 End: 09-10-4602Iufkgqr intakeCurrent drinker of alcohol (finding)[facility] Centerart: 09-28-2020 End: 88-00-7832Sghfgtr SDOH Alcohol Qiibfyhuz2Imq[address] [place], [place] [address]art: 75-61-7404Dytfpfq CommentraBerger Hospitalart: 52-74-1779Sdr Assigned At BirthNot on fileCleveland Clinic: 12-16-2021 End: 90-94-7581Jkkpxbyr to SARS-CoV-2 (event)[place] End: 48-19-2843Ppxlxvq of tobacco useCigarette SmokerFlower Hospital Work Phone: start: 02-26-1075Jvieiqh CommentraFort [facility] Hospital Work Phone: start: 12-26-2021 End: 90-83-0665Ebdfzxh smoking status NHISSmokes tobacco dailyClinton Memorial Hospital Start: 12-26-2021 End: 49-55-2611Oentyycwqy smoked current (pack per day) - Qoghzpwx4Vckoqinkk ClinicStart: 60-55-0853Avgpiga SDOH Alcohol Commentbeer and wine once a month [facility]tart: 07-01-2021 End: 24-13-4760Ondabmg smoking statusHeavy tobacco smoker (finding)[facility] Start: 68-27-4553Iiypfla smoking statusNeverMercy Health [facility] Start: 07-03-2022 End: 59-20-1722Uua Assigned At [facility] Start: 82-35-5650Mwr Assigned At [facility] ClinicStart: 25-18-0210Zsrrmrk SDOH Alcohol Zsdcowqvu7Mkdffrzcr ClinicStart: 17-39-0680Vxnienj SDOH Alcohol Std Vhtvks8Shmzibkuf ClinicStart: 07-03-2022 History SDOH Social Connections Get Dpsreiza9Kihjemrwe ClinicStart: 07-03-2022 History SDOH Social Connections Gupikn0Zradvgifq ClinicDo you belong to any clubs or organizations such as religious groups, unions, PHmHealth or athletic joyce ups, or school groups?NoCdoctors hospital ClinicAre you now , , , , never or living with a partner?MarriedClinton Memorial HospitalHow often to you have a drink containing alcohol?4 or more times a weekClinton Memorial HospitalHow many standard drinks containing alcohol do you have on a typical day?7 to 9CSouthwest General Health CenterHow often do you have 6 or more drinks on 1 occasion?Daily or almost dailyClePremier Health Miami Valley HospitalHow hard is it for you to pay for the very basics like food, housing, medical care, and heatingNot very hardClinton Memorial HospitalDo you feel stress - tense, restless, nervous, or anxious, or unable to sleep at night because yourmind is troubled all the time - these days [OSQ]To some extent [facility](I/We) worried whether (my/our) food would run out before (I/we) got money to buy more.Sometimes trueClinton Memorial HospitalThe food that (I/we) bought just didn't last, and (I/we) didn't have money to get more.Never trueRegency Hospital Cleveland Westtart: 45-90-6742Uubeoe identityIdentifies as female gender (finding) [facility] Westtart: 97-23-8819Fqqbde orientationHeterosexual (finding) [facility] HospitalHow often to you have a drink containing alcohol?NeverBON BLAN[facility]ITALStart: 76-61-3257Jfgiotk smoking status NHISNever smoked tobacco (finding)[facility] OhioDo you feel stress - tense, restless, nervous, or anxious, or unable to sleep at night because yourmind is troubled all the time - these days [OSQ]Only a littleSwaledale ClinicStart: 81-01-2166Qwyhkls Znoknzc35 days sober- 07/04/2024levelasheville specialty hospital ClinicStart: 60-11-2213Esodpstyh beverage intakeLifetime non-drinker (finding)[facility] Work Phone: Start: 57-59-5388Oeirub orientationChoose not to discloseUnAkron Children's Hospital Work Phone: How many standard drinks containing alcohol do you have on a typical day?3 or 4NOOK HealthcareStart: 08-26-2013 End: 07-34-4340WrnDbfdcj (finding)[facility] Hospitalexual OrientationPremier Health Miami [facility] Hospital South [facility]leness HospitalNEGATED: Highlighted [facility] Medical Equipment Procedure CodeEquipment CodeEquipment Original TextEquipment IdentifierDates Breast Us Core Bx [id number]: 40-50-9485Vlfkmly on above:Description: Ribbon clip Goals DatePatient GoalDesired Activity/State Functional Status VwcjLwswmbsuppWzvfurFxmxdqbp32-90-6384Sghigylpzs StatusN/[facility]05-13-2025Functional StatusN/[facility]05-02-2025 Functional StatusN/[facility]03-17-2025Functional StatusN/A [facility]03-04-2025Functional StatusN/[facility]02-04-2025Functional StatusN/[facility] 71-06-4345Mmwffplxzk StatusN/[facility]10-19-2023Functional StatusN/[facility]05-04-2023Functional StatusN/[facility]03-10-2023Functional StatusNoPremier Health Miami [facility] Hospital South 03-85-2143Ihacrbqdds StatusN/[facility] Zqtd16-92-7394 Functional StatusN/AFKettering Memorial Hospital Primary Sonz13-82-1502Jeljdcouoh StatusN/[facility] Bddc77-18-7983Tmcqocaahu StatusN/A [facility]11-29-2022Functional statusPatient at Baseline [facility] Work Phone: [phone]cvwwwg StatusN/[facility]11-07-2022Functional StatusN/[facility] 83-32-9259Jxjbxocgtw StatusN/[facility] 08854843-54-3811Mstmboukcp StatusN/[facility]07-21-2022Functional StatusN/[facility] Mental Status QsflVvytcpkxjsEtzvxtCjpsxvgl11-04-3296Lqriwqvfr functionCognitive Status Patient at BaselineKettering Health [facility] Work Phone: Clinical Notes 12-24-2020 to 07-03-2025 Note Date & HlasNfleHvvkeobn36-01-1611 NoteRight Eye Reliability was good. Progression has no prior data. Foveal threshold was normal. Findings include normal observations. Left Eye Reliability was good. Progression has no prior data. Foveal threshold was normal. Findings include normal observations.[facility] CenterAwbuzsacwi36-42-3196 History of Present illness Narrative* Sarah Buckley [...] disease Ulnar neuropathy Weakness documented in this encounterNevada Regional Medical CenterZwecamtaya42-11-1747 Radiology Diagnostic study noteSYCAMORE [place] [address] CT Scan Report Signed Patient: Shazia Chou MR#: [id number] : 1990 Acct:[id number] Age/Sex: 34 / F ADM Date: Loc: ER Room: Type: PRE ER Attending Dr: Copies to: Alexis Helm MD~ Ordering Provider: Alexis Helm MD Date of Service: 06/29/25 CT/CT head/brain wo con: [facility] BRAIN WITHOUT CONTRAST: CLINICAL HISTORY: Dizziness [...] Jr., D.O. 06/29/2025 1:29 PM Dictation Location: [place] [address] Transcribed By: [facility] 06/29/25 1329 Dictated By: Raoul Newton Jr, DO 06/29/25 1327 Signed By: 06/29/25 1329 [facility]10-16-2025 History of Present illness Narrative * Aaliyah [...] next year for mamm's. She told the front man that she willcall to make the appointment. documented in this encounterNevada Regional Medical CenterXmqklqdewa56-49-7433 History of Present illness Narrative* Aaliyah Francis DO - 06/14/2025 2:45 PM EDT Images from the original note were not included. Shazia Chou is a 34 y.o. female presents for 2nd pow Lt. lumpectomy (Poss. seroma) HPI: HPI Shazia is 2 weeks post Lt lumpectomy. She has missed her post-op appointments (x 2) but was seen in [place] ER for post-op ecchymosis and pain. They [...] off till next Thursday. documented in this encounterNevada Regional Medical CenterFxgpbxfzeh94-08-1913 History of Present illness Narrative* Aaliyah Francis, DO - 05/04/2025 9:45 AM EDT Images from the original note were not included. Shazia Chou 1990 Shazia Chou is a 34 y.o. female presents with chief complaint of Left mamm/US results (C/o nipple pain ) HPI: HPI Shazia states in June she felt a lump in the left breast, [facility]. She states she can feel the mass and it hurts. She was told at the time towatch the mass and she was never seen by a breast surgeon. She was told to keep an eye on it and did not request any follow up imaging. She lives in [place] and wants to move her care closer [...] Day Physical Exam Exam conducted with a radiotelephone operator present. HENT: Head: Normocephalic. Cardiovascular: Rate and [...] and a subsequent biopsy done at the [facility] confirmed PASH. She was told [...] arrangements have been made. documented in this encounterNevada Regional Medical CenterAifgbemmxh15-42-2204 Radiology Diagnostic study [facility] [place] [address] [place] [address] Ultrasound Report Signed Patient: Shazia Chou MR#: [id number] : 1990 Acct:[id number] Age/Sex: 34 / F ADM Date: 5 Loc: [facility] Aaliyah Francis DO Ordering Provider: Aaliyah Francis DO Date of Service: 04/26/25 MM/MM diagnostic mammo LT w/CAD: follow up for Left breast Upper outer quadrant ([id number]) US/US breast LT limited: follow with mamm [...] Escalante M.D. 04/26/2025 10:15 AM Dictation Location: [facility] Tech: Shazia Mullen; Elena Vaughn Transcribed By: MARKY 04/26/25 1015 Dictated By: Denny Escalante MD 04/26/25 1009 Signed By: 04/26/25 1015 [facility] Work Phone: 1(562) 734-732407-31-2025 History of Present illness Narrative* Aaliyah H Robb, DO - 04/13/2025 10:00 AM EDT Images from the original note were not included. Shazia Chou 1990 Shazia Chou is a 34 y.o. female presents with chief complaint of Left breast hypertrophy HPI: CLEMENT Mccray states in June she felt a lump in the left breast, [facility]. She states she can feel the mass and it hurts. She was told at the time towatch the mass and she was never seen by a breast surgeon. She was told to keep an eye on it and did not request any follow up imaging. She lives in [place] and wants to move her care closer [...] Day Physical Exam Exam conducted with a radiotelephone operator present. HENT: Head: Normocephalic. Cardiovascular: Rate and [...] and a subsequent biopsy done at the [facility] confirmed PASH. She was told [...] the imaging is completed. documented in this encounterNevada Regional Medical CenterNotbgeiqwf09-94-0213 History of Present illness Narrative* Shazia Bach LEONOR Elise - 04/09/2025 10:45 AM EDT Images from the original note were not included. [address] , [address] [facility], [address] P: [phone] F: [phone] HPI Historian of HPI: patient Shazia Chou [...] improve. Shazia Elise NP documented in this encounterNevada Regional Medical CenterQiudectvvw86-12-7256 NotePulmonology Office/Clinic Note History of Present Illness [...] Narcisa BHAKTA, Sami Longoria, PUL, GREER [address] [facility] [place] [address]- Additional Instructions: after his testing is completed [...] Endoscopic plantar fasciotomy (02/16/20 (more content not included)...[facility] HospitalComment on above:Result Comment: Electronically Signed By: Narcisa BHAKTA, Sami Longoria\.br\Date and Time Signed: 03/29/25 11:39 [id number] Evaluation + Plan noteExtracted from:Title:chronic pain Author:Babar [...] Appointments Appointment Date:03/13/2025 11:30:00 AM Scheduled Provider: Location:[facility] Appointment Type:[place] Myocard Spect Multi Rest/Stress-Res Appointment Date:03/13/2025 12:30:00 PM Scheduled Provider: Location:[facility] Appointment Type:[place] Myocard Spect Multi Rest/Stress - R Appointment Date:03/13/2025 01:00:00 PM Scheduled Provider: Location[facility] Appointment Type:[place] Myocard Spect Multi Rest/Stress-Str Appointment Date:03/13/2025 02:00:00 PM Scheduled Provider: Location[facility] Appointment Type:NM Myocar Spect Multi Rest/Stress - St Appointment Date:03/16/2025 02:30:00 PM Scheduled Provider:Jak Peace MD Location:[facility]iology [facility] Appointment Type:Cardiology Follow Up ([facility]) Future Scheduled Tests Radiology* NM Myocardial Spect Rest/Stress 1 Day 03/13/25 [facility] 06-26-2025 NoteConsultation Note Patient is presenting with [...] call with any questions or concerns that arise.[facility] HospitalComment on above:Result Comment: Electronically Signed [...] The patient agrees to continue currently prescribed/recommended therapies.[facility] HospitalComment on above: Result Comment: Electronically Signed By: Babar Mayers DO.br\Date and Time Signed: 03/03/25 08:46 [id number] Hospital Discharge instructions Patient Education 02/17/2025 21:08:51 [...] Follow these instructions at home: Medicines Take daxm-tgh-lsedvnb and prescription medicines only as told by [...] provider. Document Revised: 01/09/2022 Document Reviewed: 01/09/2022 [employer] Patient Education 2023 [employer]. 02/17/2025 21:08:51 Acute Bronchitis, Adult Acute Bronchitis, [...] condition. Follow these instructions at home: Take ibil-nsq-llutnky and prescription medicines only as told by [...] and water are not available, use hand insulation hoseman. Avoid contact with people who have cold [...] it is easier to cough up. Take iyzx-vdp-rkinbqb and prescription medicines only as told by [...] provider. Document Revised: 12/11/2022 Document Reviewed: 01/01/2022 [employer] Patient Education 2023 [employer]. Follow Up Care 02/17/2025 18:54:28 With:Jennie Durand Address: [address] [place], [place] [address]dict Ailyn, [facility], [address] [address] Business (1) When:02/20/2025 20:12:05 [facility] 06-06-2025 NoteED Patient Education Note Neurology Near-Syncope [...] these instructions at home: Medicines ??? Take iign-mwn-tfsaoks and prescription medicines only as told by [...] provider. Document Revised: 01/09/2022 Document Reviewed: 01/09/2022 [employer] Patient Education ? 2023 [employer]. Pulmonary Medicine Acute Bronchitis, Adult Acute bronchitis [...] the common cold. ??? (more content not included)...[facility]06-02-2025 Telephone encounter Note* Telephone Encounter - Tevin Carson DO - 02/13/2025 8:56 AM EDT Needs follow-up Tevin Carson DO [facility]06-02-2025 Miscellaneous Notes* Telephone Encounter - [...] advise. Madeline Teixeira MA documented in this encounterClinton Memorial Hospital05-31-2025 Telephone encounter Note * Telephone Encounter - Madeline Teixeira MA - 02/11/2025 10:13 AM EDT Last OV 07/25/2024 ..Pharmacy escripts requesting the following refill: Requested Prescriptions Pending Prescriptions Disp Refills lamoTRIgine (LAMICTAL) 25 mg tablet [Pharmacy Med Name: LAMOTRIGINE 25 MG TABLET] 360 tablet 0 Sig: TAKE 2 TABLETS BY MOUTH TWICE A DAY Please review and advise. Madeline Teixeira MA [facility]05-30-2025 NoteEchocardiology Procedure Exam Date/Time Accession # Ordering Echo Transthoracic 02/09/2025 11:26 EDT [id number] MOLLY GREGORIO CNP CPT code 54712 06768 Reason for Exam (Echo Transthoracic Complete) Palpitations R00.2 Report [facility] [address] [place] [address] Adult Echocardiogram Report Name: SHAZIA CHOU Study Date: 02/09/2025 10:52 AM BP: 135/99 mmHg Patient [facility]: [facility] Ambulatory(s) [facility] [place] HR: 65 : 1990 Gender: Female Height: 67 in Age: 34 yrs Ethnicity: [facility] Weight: 205 lb Reason For Study: [...] P.7 mmHg RVSP(TR): 32.7 mmHg Measurements from [facility] ED Mass (HM): 133.0 grams LAEF (HM): 62.0 % BSA (HM): 2.0 m2 CI (HM): 2.8 l/min/m2 MINESH (HM): 25.0 ml/m2 LAVmax (HM): 50.0 ml LAVmin (): 19.0 ml Pat Height (): 170.0 cm Pat Weight (HM): 93.0 kg FINAL REPORT Dictated: 02/09/2025 10:52 am Fernandez Daniels MD Signed (Electronic Signature): 02/10/2025 11:27 am Signed by: Fernandez Daniels MD Transcribed by: GINA Technologist: [facility]05-16-2025 Evaluation + Plan noteExtracted from:Title:Pain Managment Follow [...] balance training to prevent future risk of falling.[facility] 05-16-2025 NoteConsultation Note Patient: SHAZIA CHOU Age: [...] TID, # 90 tab(s), Refills(s) 2, Pharmacy: [facility]/pharmacy #[id number], 170, cm, 01/13/25 8:29:00 EDT, Height/Length [...] All Problems Bipolar disorder / SNOMED CT 01684408 / Confirmed Pancreatic mass / SNOMED CT 0341806267 / Confirmed Smoker / SNOMED CT 656140829 / Confirmed Added secondary to documentation in Social History. Borderline personality disorder / SNOMED CT 66629231 / Confirmed History of bypass of stomach / SNOMED CT [id number] / Confirmed Vitamin D deficiency / SNOMED CT 55657164 / Confirmed Left breast mass / SNOMED CT 819224697 / Confirmed Hypertension / SNOMED CT 1072205213 / Confirmed Overweight (BMI 25.0-29.9) / SNOMED CT 7555616214 / Confirmed Muscle weakness-general / SNOMED CT 69042130 / Confirmed Chronic pain syndrome / SNOMED CT 4534655670 / Confirmed Iron deficiency anemia / SNOMED CT 434664988 / Confirmed noted in 09/16/2024 [facility] Records page 5. added per OP CDI policy. Alcohol abuse, uncomplicated / SNOMED CT 67132745 / Confirmed BMI 31.0-31.9,adult / SNOMED CT 250656495 / Confirmed Obesity (BMI 30-39.9) / SNOMED CT 573637749 / Confirmed Resolved: / SNOMED CT 144442682 Resolved: / SNOMED CT 139938127 Resolved: / SNOMED CT 366880163 Resolved: Alcohol abuse / SNOMED CT 83569133 Canceled: Anxiety and depression / SNOMED CT 82684920 Canceled: Plantar fasciitis of left foot / SNOMED CT 838797790 Canceled: Intracranial hypertension / SNOMED CT 096222646 Canceled: Smoker / SNOMED CT [id number] Added secondary to documentation in Social History. Canceled: Class 1 obesity with body mass index (BMI) of 32.0 to 32.9 in adult / SNOMED CT 2416608539 Canceled: Anxiety / SNOMED CT 22741023 Canceled: Depression / SNOMED CT 84844328 Canceled: Borderline personality disorder / SNOMED CT 72360891 Canceled: Class 1 obesity with body mass index (BMI) of 30.0 to 30.9 in adult / SNOMED CT 4422731913 Canceled: Former smoker / SNOMED CT 49658242 Canceled: Grief reaction / SNOMED CT 462256564 Canceled: Overweight with body mass index (BMI) of 29 to 29.9 in adult / SNOMED CT 7476383194 Canceled: Disorder of oral soft tissue / SNOMED CT 8621780581 Canceled: Intentional benzodiazepine overdose / SNOMED CT 4274340481 Canceled: Omental infarction / SNOMED CT 102274236 Canceled: Axillary (more content not included)...[facility] Comment on above:Result Comment: Electronically Signed By: Orlando Kate PA-C\.br\Date and Time Signed: 01/27/25 10:38 [id number] NoteOperative Report Diagnosis: m47.816, lumbar spondyloarthropathy Procedure: [...] The patient agrees to continue currently prescribed/recommended therapies.[facility] HospitalComment on above: Result Comment: Electronically Signed By: Babar Mayers DO.benito\Date and Time Signed: 01/24/25 09:58 [id number] Evaluation + Plan noteExtracted from: Title:Pain Managment [...] treatments including physical therapy in the past, fpgj-rku-kmcyadw anti-inflammatory medications and the recent injection helped [...] Provider: Location:.[place]ICAL [place] Appointment Type:PT Julieta () [facility] 05-02-2025 NoteConsultation Note Patient: SHAZIA CHOU Age: [...] been working full- time. 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 She states that it was miserable. At this time, she has back pain that she rates a 7/10 but it can get up to a 10/10 with walking, standing, being upright and active. She feels like the Lyrica did not help her so [facility]. She is using 600 mg usually only [...] day(s), # 60 cap(s), Refills(s) 1, Pharmacy: [facility]/pharmacy #[id number], 170, cm, 11/15/24 13:59:00 EST, Height/Length [...] All Problems Bipolar disorder / SNOMED CT 21212382 / Confirmed Pancreatic mass / SNOMED CT 4720141492 / Confirmed Smoker / SNOMED CT 743237346 / Confirmed Added secondary to documentation in Social History. Borderline personality disorder / SNOMED CT 15829437 / Confirmed History of bypass of stomach / SNOMED CT 3522754083 / Confirmed Vitamin D deficiency / SNOMED CT 83998597 / Confirmed Left breast mass / SNOMED CT 714894932 / Confirmed Hypertension / SNOMED CT 8782387736 / Confirmed Overweight (BMI 25.0-29.9) / SNOMED CT 3516561807 / Confirmed Muscle weakness-general / SNOMED CT 65194426 / Confirmed Chronic pain syndrome / SNOMED CT 6052630468 / Confirmed Iron deficiency anemia / SNOMED CT 286907867 / Confirmed noted in 09/16/2024 [facility] Records page 5. added per OP CDI policy. Alcohol abuse, uncomplicated / SNOMED CT 30097949 / Confirmed BMI 31.0-31.9,adult / SNOMED CT 138437809 / Confirmed Obesity (BMI 30-39.9) / SNOMED CT 040040790 / Confirmed Resolved: / SNOMED CT 303870813 Resolved: / SNOMED CT 802234578 Resolved: / SNOMED CT 159512009 Resolved: Alcohol abuse / SNOMED CT 97172766 Canceled: Anxiety and depression / SNOMED CT 61112418 Canceled: Plantar fasciitis of left foot / SNOMED CT 068682923 Canceled: Intracranial hypertension / SNOMED CT 168143804 Canceled: Smoker / SNOMED CT [id number] Added secondary to documentation in Social History. Canceled: Class 1 obesity with body mass index (BMI) of 32.0 to 32.9 in adult / SNOMED CT 3610351243 Canceled: Anxiety / SNOMED CT 27263683 Canceled: Depression / SNOMED CT 51622091 Canceled: Borderline personality disorder / SNOMED CT 80296693 Canceled: Class 1 obesity with body mass index (BMI) of 30.0 to 30.9 in adult / SNOMED CT 8143049862 Canceled: Former smoker / SNOMED CT 33502851 Canceled: Grief reaction / SNOMED CT 710349547 Canceled: Overweight with body mass index (BMI) of 29 to 29.9 in adult / SNOMED CT 6664154382 Cance (more content not included)...[facility] HospitalComment on above: Result Comment: Electronically Signed By: Orlando Kate PA-C\.br\Date and Time Signed: 01/13/25 08:44 [id number] Evaluation + Plan noteExtracted from: Title:Bilateral lumbar [...] Date:01/27/2025 10:15:00 AM Scheduled Provider:Orlando Kate PA-C Location:.[facility] Appointment Type:Pain Management - Follow Up (FT) [facility] 04-05-2025 Evaluation + Plan noteExtracted from:Title: Bilateral [...] Date:03/09/2025 12:30:00 PM Scheduled Provider:Babar Mayers DO Location:[facility] Appointment Type:Pain Management - Follow Up (FT) Appointment Date:03/13/2025 11:30:00 AM Scheduled Provider: [facility] Type:NM Myocard Spect Multi Rest/Stress-Res Appointment Date:03/13/2025 12:30:00 PM Scheduled Provider: [facility] Appointment Type:NM Myocard Spect Multi Rest/Stress - R Appointment Date:03/13/2025 01:00:00 PM Scheduled Provider: [facility] Appointment Type:NM Myocard Spect Multi Rest/Stress-Str Appointment Date:03/13/2025 02:00:00 PM Scheduled Provider: [facility] Appointment Type:NM Myocar Spect Multi Rest/Stress - St Appointment Date:03/16/2025 02:30:00 PM Scheduled Provider:Jak Peace MD [facility] Type:Cardiology Follow Up (FT) Future Scheduled Tests Radiology* NM Myocardial Spect Rest/Stress 1 Day 03/13/25 [facility] 03-17-2025 Evaluation + Plan noteExtracted from:Title: Left [...] 10:15:00 AM Scheduled Provider:Orlando Kate PA-C Location:[facility] Appointment Type:Pain Management - Follow Up (FT) Future Scheduled Tests Radiology* US Abdomen, Limited 11/29/24 [facility] 03-17-2025 NoteOperative Report Diagnosis: m54.16, lumbar radiculopathy [...] and agrees to comply to currently prescribed/recommended therapies.[facility] Comment on above:Result Comment: Electronically Signed By: Babar Mayers DO\.br\Date and Time Signed: 11/28/24 10:22 [id number] NoteConsultation Note Patient: SHAZIA CHOU Age: 33 [...] all conservative treatments first. She has taken fawp-xay-hdjjsvr medication without any long-term relief. She states that her left leg pain affects her quality of life and affects her activities. 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 She is hopeful to be able [...] All Problems Bipolar disorder / SNOMED CT 70762579 / Confirmed Pancreatic mass / SNOMED CT 1169391800 / Confirmed Smoker / SNOMED CT 649067548 / Confirmed Added secondary to documentation in Social History. Borderline personality disorder / SNOMED CT 55194316 / Confirmed History of bypass of stomach / SNOMED CT 7072706221 / Confirmed Vitamin D deficiency / SNOMED CT 83632545 / Confirmed Left breast mass / SNOMED CT 757444877 / Confirmed Hypertension / SNOMED CT 0784396904 / Confirmed Overweight (BMI 25.0-29.9) / SNOMED CT 9560689975 / Confirmed Muscle weakness-general / SNOMED CT 92451789 / Confirmed Chronic pain syndrome / SNOMED CT 7241291221 / Confirmed Iron deficiency anemia / SNOMED CT 379775512 / Confirmed noted in 09/16/2024 [facility] Records page 5. added per OP CDI policy. Alcohol abuse, uncomplicated / SNOMED CT 40890842 / Confirmed BMI 31.0-31.9,adult / SNOMED CT 057677909 / Confirmed Obesity (BMI 30-39.9) / SNOMED CT 102547750 / Confirmed Resolved: / SNOMED CT 303034707 Resolved: / SNOMED CT 597241578 Resolved: / SNOMED CT 363848407 Resolved: Alcohol abuse / SNOMED CT 96256131 Canceled: Anxiety and depression / SNOMED CT 97546408 Canceled: Plantar fasciitis of left foot / SNOMED CT 028202199 Canceled: Intracranial hypertension / SNOMED CT 539582465 Canceled: Smoker / SNOMED CT [id number] Added secondary to documentation in Social History. Canceled: Class 1 obesity with body mass index (BMI) of 32.0 to 32.9 in adult / SNOMED CT 6871728388 Canceled: Anxiety / SNOMED CT 76719891 Canceled: Depression / SNOMED CT 52997283 Canceled: Borderline personality disorder / SNOMED CT 28462204 Canceled: Class 1 obesity with body mass index (BMI) of 30.0 to 30.9 in adult / SNOMED CT 2015668828 Canceled: Former smoker / SNOMED CT 08686509 Canceled: Grief reaction / SNOMED CT 590771653 Canceled: Overweight with body mass index (BMI) of 29 to 29.9 in adult / SNOMED CT 8904294796 Canceled: Disorder of oral soft tissue / SNOMED CT 4971785431 Canceled: Intentional benzodiazepine overdose / SNOMED CT 0848211854 Canceled: Omental infarction / SNOMED CT 956193524 Canceled: Axillary lymphadenopathy / SNOMED CT 141204 Canceled: BMI 28.0-28.9,adult / SNOMED CT 5286992272 Canceled: Over weight / SNOMED CT 409378667 Canceled: Leukocytosis / SNOMED CT 103496677 Canceled: BMI 29.0-29.9,adult / SNOMED CT 4829064260 Canceled: Headache after spinal puncture / SNOMED CT 628242948 Canceled: Trapezius muscle spasm / SNOMED CT 7098324682 Canceled: Recovering alcoholic (more content not included)...[facility] HospitalComment on above:Result Comment: Electronically Signed By: Orlando Kate PA-C\.benito\Date and Time Signed: 11/15/24 14:14 [id number] Evaluation + Plan noteExtracted from:Title:Pain Managment H&P [...] Call clinic sooner if necessary. NOAH score: 42%.[facility] 02-04-2025 Evaluation + Plan noteExtracted from:Title: ED NoteAuthor:Mnose GERONIMO, JansenDate:10/18/24 Chronic pain (G89.29: Other chronic pain) Orders: ketorolac, 60 mg = 2 mL, Injection, IntraMuscular, Once PRN Pain, STAT, Start date 10/18/24 8:31:00EST, 10/18/24 8:31:00 EST methocarbamol, 1,500 mg = 2 tab(s), Oral, TID, X 3 day(s), # 18 tab(s), Refills(s) 0, Pharmacy: [facility]/pharmacy #[id number], 170, cm, 10/18/24 8:12:00 EST, Height/Length Dosing, 90, kg, 10/18/24 8:12:00 EST, Weight Dosing predniSONE, 60 mg = 3 tab(s), Oral, Daily, X 7 day(s), # 21 tab(s), Refills(s) 0, Pharmacy: [facility]/pharmacy #[id number], 170, cm, 10/18/24 8:12:00 EST, Height/Length Dosing, 90, kg, 10/18/24 8:12:00 EST, Weight Dosing Future Appointments Appointment Date:11/18/2024 08:00:00 AM Scheduled Provider:KURT BALBUENA CNP Location:[facility] Appointment Type:[facility] 02-04-2025 Hospital Discharge instructions Patient Education [...] your skin (aromatherapy). Other treatments may include: Xwbq-xer-fzlifli or prescription medicines. Color, light, or sound therapy. Local electrical stimulation. The electrical pulses help to relieve pain by temporarily stopping the nerve impulses that cause you to feel pain. Injections. These deliver numbing or pain-relieving medicines into the spine or the area of pain. Medicines Take lyjx-ahk-byprnoi and prescription medicines only as told by your health care provider. Ask your health care provider if the medicine prescribed to you: ?Requires you to avoid driving or using machinery. ?Can cause constipation. You may need to take these actions to prevent or treat constipation: ?Drink enough fluid to keep your urine pale yellow. ?Take cgdd-iuv-igqimnv or prescription medicines. ?Eat foods that are [...] the National Suicide Prevention Lifeline at or 057. This is open 24 hours a day. Text the Crisis Text Line at 238718. This information is not intended to replace advice given to you by your health care provider. Make sure you discuss any questions you have with your health care provider. Document Revised: 04/22/2023 Document Reviewed: 03/25/2023 [employer] Patient Education 2023 [employer]. Follow Up Care 10/18/2024 08:05:45 With:KURT BALBUENA Address: [address] [place] [id number] Business (1) When:10/21/2024 08:32:28 [facility] 02-04-2025 NoteED Patient Education Note Mental and [...] skin (aromatherapy). Other treatments may include: ??? Nftb-sul-ngjzkrz or prescription medicines. ??? Color, light, or sound therapy. ??? Local electrical stimulation. The electrical pulses help to relieve pain by temporarily stopping the nerve impulses that cause you to feel pain. ??? Injections. These deliver numbing or pain-relieving medicines into the spine or the area of pain. Medicines ??? Take ohyw-tlj-koplkzp and prescription medicines only as told by your health care provider. ??? Ask your health care provider if the medicine prescribed to you: ? Requires you to avoid driving or using machinery. ? Can cause constipation. You may need to take these actions to prevent or treat constipation: ? Drink enough fluid to keep your urine pale yellow. ? Take hqhk-tfo-agxcqra or prescription medicines. ? Eat foods that [...] the National Suicide Prevention Lifeline at or 746. This is open 24 hours aday. ??? Text the Crisis Text Line at 115165. This information is not intended to replace advice given to you by your health care provider. Make sure you discuss any questions you have with your health care provider. Document Revised: 04/22/2023 Document Reviewed: 03/25/2023 [employer] Patient Education ? 2023 [employer].[facility] 10-17-2024 NoteHNO ID: [id number] Author: MELISSA GOLD MA Service: ? Author Type: Charge Auditor Type: Progress Notes Filed: 10/17/2024 12:28 Note [...] or unnecessary to reach patient: Left message Offermobihart message sent HCC related Navigation Signature: Melissa Gold MA October 17, 2024 12:23 [facility]02-03-2025 History of Present illness Narrative* [...] or unnecessary to reach patient: Left message [employer] message sent HCC related Navigation Signature: Melissa Gold MA October 17, 2024 12:23 PM documented in [facility]Cl[facility] NotePatient Outreach (NETNAV) SHAZIA CHOU ([id number]) 1990 F Date Time Provider Department 10/17/24 [...] or unnecessary to reach patient: Left message [employer] message sent HCC related Navigation Signature: Melissa [...] mg by mouth daily at bedtime. - hjqohqmalxdl-rer-uvsi-FA-vit K (BARIATRIC MULTIVITAMINS) 45 mg iron- 800 [...] 03/08/2024 Encounter Status:Closed by MELISSA GOLD on 10/17/24[facility]01-31-[facility]25 NotePatient Education Mental and Behavioral Health Binge-Drinking [...] plan to use machinery, such as a party bus driver or power tool. ? You have a [...] National Drug and Alcohol Treatment Referral Service: 1-144-398-HELP (3985) ??? Alcoholics Anonymous, Alcoholics Resource Center: ??? Substance Abuse and Mental Health Services Administration: samhsa.gov Where to find more information: ??? Centers for Disease Control and Prevention: cdc.gov ??? National De R[place]ter on Alcohol Abuse and Alcoholism: niaaa.nih.gov/alcohol Contact [...] the National Suicide Prevention Lifeline at or 784. This is open 24 hours aday. ??? Text the Crisis Text Line at 526421. Summary ??? Binge-drinking refers to drinking a large amount of alcohol in a short time. This is usually 5 drinks for men or 4 drinks for women, on one occasion. ??? Binge-drinking can lead to serious health problems, such as heart dise (more content not included)...[facility]01-17-2025 NotePatient Education Mental and Behavioral [...] skin (aromatherapy). Other treatments may include: ??? Tbru-zib-pllbsmy or prescription medicines. ??? Color, light, or sound therapy. ??? Local electrical stimulation. The electrical pulses help to relieve pain by temporarily stopping the nerve impulses that cause you to feel pain. ??? Injections. These deliver numbing or pain-relieving medicines into the spine or the area of pain. Medicines ??? Take gbil-kmm-bootawl and prescription medicines only as told by your health care provider. ??? Ask your health care provider if the medicine prescribed to you: ? Requires you to avoid driving or using machinery. ? Can cause constipation. You may need to take these actions to prevent or treat constipation: ? Drink enough fluid to keep your urine pale yellow. ? Take nncl-oqi-qimvkho or prescription medicines. ? Eat foods that [...] the National Suicide Prevention Lifeline at or 692. This is open 24 hours aday. ??? Text the Crisis Text Line at 599123. This information is not intended to replace advice given to you by your health care provider. Make sure you discuss any questions you have with your health care provider. Document Revised: 04/22/2023 Document Reviewed: 03/25/2023 [employer] Patient Education ? 2023 [employer]-Wellness.[facility] 09-27-2024 History of Present illness Narrative* Corby Larsen, DO - 09/27/2024 2:00 PM EST Images from the original note were not included. Reason for Appointment: EMG Patient: Shazia Chou : 1990 EMG Computer: [employer] Referring Physician: Dr. Corby Larsen EMG: MILTON special collections librarian: Saúl Mccray RT(R) Office Location: [place] Reason for EMG: c/o weakness in bilateral [...] nature of the test. documented in this encounterNevada Regional Medical CenterOuawjqwtfb83-18-5514 History of Present illness Narrative* Corby Larsen [...] typically knows very well. She works at [employer] and will forget what goes on pizzas [...] , wrist extensors , wrist flexor , manager med surg strength 5/5. LUE Strength deltoid , biceps , triceps , wrist extensors , wrist flexor , manager med surg strength 5/5. RLE Strength illopsoas, quadriceps, tibialis [...] lower extremities on 07/09/23: Normal LP at [facility] [place]: Opening pressure of 23 cm of CSF, CSF testing was unremarkable MRI brain and MR venogram on 08/11/22 at [facility]: unremarkable. Assessment/Plan Diagnoses and all orders for this visit: Ataxia It is my impression that patient has abnormal hlxtsr-fx-mqan testing and feels like she is walking [...] without contrast. We will do this at [facility] for comparison. Paresthesia Patient continues to complain [...] of mental health issues documented in this encounterNevada Regional Medical CenterStjeifzdtc50-80-9576 Evaluation + Plan note Diagnostic Tests Pending * Vitamin A Level 09/20/24 [facility] [id number] Radiology [facility] [place] [address] [place] [address] CT Scan Report Signed Patient: Shazia Chou MR#: [id number] : 1990 Acct:[id number] Age/Sex: 33 / F ADM Date: 5 Loc: ER Room: [facility] ER Attending Dr: Copies to: Sailaja Anderson APRN~ Ordering Provider: Sailaja Anderson APRN Date of Service: 09/15/24 CT/CT angio head: weakness ([id number]) CT/CT angio neck: weakness ([id number]) CT/CT head/brain wo con: weakness CT head/brain [...] Wiley Shetty M.D.09/15/2024 3:56 PM Dictation Location: [facility] BioSciencesNOR[facility] STATE HOSPITALMovatu Transcribed By: [facility] 09/15/24 1556 Dictated By: Wiley Shetty II, MD 09/15/24 1546 Signed By: 09/15/24 1556 [facility] Work Phone: 1(619) 567-321201-02-2025 NotePatient Education Mental and Behavioral Health Myofascial [...] these instructions at home: Medicines ??? Take wjay-jzc-btwefwb and prescription medicines only as told by your health care provider. ??? Ask your health care provider if the medicine prescribed to you: ? Requires you to avoid driving or using machinery. ? Can cause constipation. You may need to take these actions to prevent or treat constipation: ? Drink enough fluid to keep your urine pale yellow. ? Take havk-qlp-nmxnefe or prescription medicines. ? Eat foods that [...] ??? Do not use (more content not included)...[facility] 09-13-2024 Miscellaneous Notes* Result Encounter Note - Aleah Howard MD - 09/13/2024 9:45 AM EST Shazia your echocardiogram shows normal heart pump function and valves, we will discuss more at upcoming visit. [facility] Work Phone: 1(172) 633-191612-31-2024 Progress note* Result Encounter Note - Aleah Howard MD - 09/13/2024 9:45 AM EST Shazia your echocardiogram shows normal heart pump function and valves, we will discuss more at upcoming visit. [facility] Work Phone: 1(980) 603-469012-23-2024 Telephone encounter Note* Telephone Encounter - Hilda Lemos RN - 09/05/2024 10:07 AM EST S- patient asked PCP to review labs B- recent ER visit 08/27/24 A- uploaded care everywhere. ER follow up phone call. R- Follow up scheduled 09/13 At [facility]. [address]ase [address] [facility] Concerned about [place] and [place] reports. Patient will screenshot and send her lab work from the other hospitals in a [employer] message CALL FOR ER FOLLOW UP: On this date and time, Shazia was seen at 08/27/24 at [facility] 08/22/24 at [facility] How is patient doing now? Lipase [address] [facility] Concerned about Iron and [place] reports. Patient will screenshot and send her [...] updated care everywhere. RX: none Hilda KHALIL monomer recovery supervisor of [facility] [address] [place] [address] phone [phone] fax [facility]12-23-2024 Miscellaneous Notes* Telephone Encounter - Hilda Lemos RN - 09/05/2024 10:07 AM EST S- patient asked PCP to review labs B- recent ER visit 08/27/24 A- uploaded care everywhere. ER follow up phone call. R- Follow up scheduled 09/13 At [facility]. [address]ase [address] [facility] Concerned about [place] and [place] reports. Patient will screenshot and send her lab work from the other hospitals in a [employer] message CALL FOR ER FOLLOW UP: On this date and time, Shazia was seen at 08/27/24 at [facility] 08/22/24 at [facility] How is patient doing now? Lipase [address] [facility] Concerned about [place] and [place] reports. Patient will screenshot and send her [...] updated care everywhere. RX: none Hilda KHALIL monomer recovery supervisor of [facility] [address] [place], [place] [id number] phone [phone] fax documented in this encounterClinton [facility] Hospital12-12-2024 NoteHNO ID: [id number] Author: MAR YJO TRINIDAD RN Service: ? Author Type: Registered [...] FINDINGS/SUMMARY: None Patient Attributed To: QAE P[facility] [place] Action Taken: No action needed. Contact made with patient: No, Chart review only. Signature: Mary Jo Trinidad RNKindred Healthcare12-12-2024 History of Present illness Narrative* Mary Jo Trinidad RN - 08/25/2024 2:56 PM EST [facility] EDYTA RN Patient identified by name [...] Mary Jo Trinidad RN documented in this [facility]24 NotePatient Outreach (AMBG) SHAZIA CHOU ([id number]) 1990 F Date Time Provider Department 08/25/24 MARY JO TRINIDAD [facility] During your visit [...] encounters below took place or what Ms. Chuo was seen for. 06-12-24 07-02-24 07-22-24 08-15-24 [...] Assessed Reason for Visit: CARMELINA LAN RN [[id number]] Cmt: ED Utilization Review per request of [...] mg by mouth daily at bedtime. - rcoknrfnximv-jba-klmk-FA-vit K (BARIATRIC MULTIVITAMINS) 45 mg iron- 800 [...] Encounter Status:Closed by MARY JO TRINIDAD on 08/25/24[facility]12[facility] Evaluation + Plan note Diagnostic Tests Pending * EBV Antibody Profile 08/18/24 * Jazmin Teixeira Ab Early Antigen 08/18/24 [facility] [id number] Telephone encounter Note* Telephone Encounter - Tevin Carson DO - 08/17/2024 3:12 PM EST The following approved medication requests have been transmitted electronically. Requested Prescriptions Pending Prescriptions Disp Refills lamoTRIgine (LAMICTAL) 25 mg tablet [Pharmacy Med Name: LAMOTRIGINE 25 MG TABLET] 360 tablet 0 Sig: Take 2 tablets by mouth two times a day. Tevin Carson DO [facility]12-04-2024 Miscellaneous Notes* Telephone Encounter - [...] advise. Jacinda Arreola MA, documented in this encounterClinton [facility]12-04-2024 Telephone encounter Note * Telephone [...] Please review and advise. Jacinda Arreola MA, [facility]12-03-2024 NoteNormal sinus rhythm at 75 bpm normal intervals abnormal R wave progression cannot exclude previous anterior septal myocardial infarction, 1 ventricular premature beat is noted. 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 She is status post partial hysterectomy. [...] lamoTRIgine (LAMICTAL) 50 mg, 2 times daily ocztspvsjqop-iqk-xsal-FA-vit K (Bariatric Multivitamins) 45 mg iron- 800 [...] already been to the emergency room in [place] for her symptoms. Follow-up after testing Discussed [...] exam, discussion and plan. [facility] Work Phone: [phone]) 550-937811-25-2024 Instructions* Patient Instructions* Rita Knowles LPN - [...] Provided instructions on exercise. documented in this [facility] Work Phone: 1(460) 483-497611-11-2024 NoteHNO ID: [id number] Author: TEVIN CARSON, DO Service: ? Author Type: Physician Type: Progress Notes Filed: 07/25/2024 16:57 Note Text: [facility] Visit Assessment and Plan 1. Bipolar affective [...] appointment. She is scheduled to see a laser engraver at for this. ROS: As per HPI. [...] Mood and Affect: Mood normal. Behavior: Behavior normal.[facility]11-11-2024 History of Present illness Narrative* Tevin Carson - 07/25/2024 3:07 PM EST [facility] Medicine Visit Assessment and Plan 1. [...] appointment. She is scheduled to see a laser engraver at for this. ROS: As per HPI. [...] normal. Behavior: Behavior normal. documented in this encounterClinton [facility]11-08-2024 Telephone encounter Note * Telephone Encounter - Tevin Carson DO - 07/22/2024 12:27 PM EST Agree with in office evaluation, needs to go to ED if symptoms worsen Tevin Carson DO [facility] Work Phone: [phone] 137-394711-08-2024 Miscellaneous Notes* Telephone Encounter - Tevin Carson [...] s/p hyster Protocols used: Anxiety and Panic Xvvxfx-SYANJ-TC Request/Response - Patient scheduled for ThursdayJul [address] Carson (20 minutes). Patient is alsoscheduled for 40 minutes on ThursdayJul [address] Carson. I did not cancel the Thursday appt in case a 40 min follow up would be appropriate. Please advise if needed. documented in this encounterClinton [facility] Hospital11-08-2024 Telephone encounter Note * Telephone [...] s/p hyster Protocols used: Anxiety and Panic Phrouw-VFVNT-PA Request/Response - Patient scheduled for ThursdayJul [address] Carson (20 minutes). Patient is alsoscheduled for 40 minutes on ThursdayJul [address] Carson. I did not cancel the Thursday appt in case a 40 min follow up would be appropriate. Please advise if needed. [facility]11-08[facility] Telephone encounter Note* Telephone Encounter - Hilda Lemos RN - 07/22/2024 11:34 AM EST See nurse triage encounter. [facility]11-08-2024 Miscellaneous Notes* Telephone Encounter - Hilda Lemos RN - 07/22/2024 11:34 AM EST See nurse triage encounter. documented in this encounterClinton [facility] Hospital10-28-2024 Instructions* Patient Education - Ev Lindsey RT(R) - 07/11/2024 9:29 AM EDT Post procedure written instructions were given to patient. [facility]10-28-2024 Miscellaneous Notes* Patient Education - Ev Lindsey RT(Keshav) - 07/11/2024 9:29 AM EDT Post procedure written instructions were given to patient. documented in this encounterClinton [facility] Hospital10-28-2024 NoteHNO ID: [id number] Author: EV LINDSEY RT(R) Service: Radiology Author Type: Director Of Product Development Type: Patient Education Filed: 07/11/2024 09:29 Note Text: Post procedure written instructions were given to patient.[facility]10-21-2024 History of Present illness Narrative* Omar Soliman [...] PATIENT PRESENTS WITH AN IMPLANTABLE OR ATTACHED PROPERTY WORKER: No RADIOLOGY DEPARTMENT: Mammography PERIPHERAL IV DATA: Not applicable SIGNED BY: Stewart Brewer July 04, 2024 12:32 PM documented in this encounterClinton [facility] Hospital10-21-2024 NoteHNO ID: [id number] Author: OMAR SOLIMAN Mammo Tech Service: ? Author Type: Director Of Product Development Type: Progress Notes Filed: 07/04/2024 12:32 Note [...] PATIENT PRESENTS WITH AN IMPLANTABLE OR ATTACHED PROPERTY WORKER: No RADIOLOGY DEPARTMENT: Mammography PERIPHERAL IV DATA: Not applicable SIGNED BY: Omar Soliman Mammo Tech July 04, 2024 12:32 [facility]10-21-2024 NoteHNO ID: [id number] Author: FATUMA TYLER APRN.REFUSE DRIVER Service: ? Author Type: Nurse Practitioner Type: Progress Notes Filed: 07/06/2024 08:25 Note Text: MEDICAL BREAST PATIENT NAME: Shazia Chou July 04, 2024 REFERRAL: She is self referred for an opinion regarding regarding LEFT breast painful lump and bloody nipple discharge HISTORY of PRESENT ILLNESS: Shazia Chou is a 33 year old premenopausal female who presents to [facility] today for evaluation [...] performed by chemiluminescent immunoassay. Performed at [facility],[address],[place] [address] She takes a multivitamin daily. BMD: No PERSONAL BREAST HISTORY: Breast biopsy: No Breast cysts: No Breast surgery: No Breast cancer: No CANCER SURVEILLANCE: Mammograms: Date in [facility]: 12/09/23; results - Negative-Left breast only Breast MRI: Date in [facility]: 06/10/22; results - Negative Colonoscopy: No RISK [...] discussed with the Patient or Patient's Authorized Corporate Security Manager. As applicable, any other physician, advance practice provider, medical student, or other health professional student that will be observing or involved in (more content not included)...[facility]10-21-2024 History of Present illness Narrative* Fatuma Tyler APRN.REFUSE DRIVER - 07/04/2024 10:52 AM EDT MEDICAL BREAST PATIENT NAME: Shazia Chou July 04, 2024 REFERRAL: She is self referred for an opinion regarding regarding LEFT breast painful lump and bloody nipple discharge HISTORY of PRESENT ILLNESS: Shazia Chou is a 33 year old premenopausal female who [facility] today for evaluation [...] performed by chemiluminescent immunoassay. Performed at [facility],[address] [place] [address] She takes a multivitamin daily. BMD: No PERSONAL BREAST HISTORY: Breast biopsy: No Breast cysts: No Breast surgery: No Breast cancer: No CANCER SURVEILLANCE: Mammograms: Date in [facility]: 12/09/23; results - Negative-Left breast only Breast MRI: Date in [facility]: 06/10/22; results - Negative Colonoscopy: No RISK [...] discussed with the Patient or Patient's Authorized Corporate Security Manager. Asapplicable, any other physician, advance practice provider, medical student, or other health professional student that will be observing or involved in the sensitive examination for educational or training purposes was discussed with the Patient or Authorized Corporate Security Manager. The Patient or Authorized Corporate Security Manager has agreed to proceed with the [...] which included preparing to see the patient, gzbx-qv-fcdz patient care, completing clinical documentation, obtaining and/or reviewing separately obtained history, performing a medically appropriate examination, counseling and educating the patient/family/caregiver, ordering medications, tests, or procedures, and communicating results to the patient/family/caregiver. Fatuma Tyler APRN.IRENE Medical Breast Specialist July 04, 2024 CC: Tevin Carson [address] [place] [address] documented in this encounterClinton Memorial Hospital10-21-2024 Instructions* Patient Instructions* Naldo Borrego [...] CNP, Medical Breast Specialist Sofia Shelton, MARCO [phone] ([place]) Naldo Borrego, Charge Auditor [phone] ([place]) documented in this encounterClinton [facility] Hospital10-18-2024 Instructions* Patient Instructions* Tevin Carson [...] me in 1 month documented in this encounterClinton [facility] Hospital10-18-2024 NoteHNO ID: [id number] Author: TEVIN CARSON DO Service: ? Author Type: Physician Type: Progress Notes Filed: 07/01/2024 12:18 Note Text: [facility] Family Medicine Visit Assessment and Plan [...] rhythm with sinus arrhythmia at 73 BPM, IL interval 138 ms, normal QRS, poor quality [...] Cognition and Memory: Cognition normal. Comments: Slightly anxiousKindred Healthcare10-18-2024 History of Present illness Narrative* Carson, DO Tevin - 07/01/2024 11:[address] [facility] Family Medicine Visit Assessment and Plan [...] rhythm with sinus arrhythmia at 73 BPM, IL interval 138 ms, normal QRS, poor quality [...] normal. Comments: Slightly anxious documented in this encounterClinton Memorial Hospital10-18-2024 Telephone encounter Note * Telephone Encounter - Naldo Borrego MA - 07/01/2024 10:23 AM EDT Shazia returned my call from yesterday about her appointment on Thursday. Patient stated that she had a mammogram and US done at [facility] recently because she felt a [...] to one anotheror not. She plans to rock picker disk with reports from [employer] before her appointment. I asked her to arrive 30 minutes early to appointment so that we can start uploading the disk and she can fillout paperwork. She was appreciative for the call and information. Naldo Borrego MA [facility]10-18-2024 Miscellaneous Notes* Telephone Encounter - Naldo Borrego MA - 07/01/2024 10:23 AM EDT Shazia returned my call from yesterday about her appointment on Thursday. Patient stated that she had a mammogram and US done at [facility] recently because she felt a lump in [...] to one anotheror not. She plans to rock picker disk with reports from [employer] before her appointment. I asked her to [...] me. Naldo Borrego MA documented in this encounterClinton [facility] Hospital10-17-2024 Telephone encounter Note * Telephone Encounter - Naldo Borrego MA - 06/30/2024 2:43 PM EDT I called and left a message for the patient regarding her appointment 07/04 [address] Mrs. Tyler in the breast center. I left my contact information for her to reach me. Naldo Borrego MA [facility]09-16-2024 NoteHNO ID: [id number] Author: ORLANDO MARTINEZ MA Service: ? Author Type: Charge Auditor Type: Progress Notes Filed: 05/30/2024 13:52 Note Text: POPULATION HEALTH NAVIGATION OUTREACH Action/FYI Patient called back and I scheduled her for a ED follow up with REFUSE DRIVER in office. Also scheduled patient for est care appointment. Updated PCP field PER Navigation rules. ACM Reason for Outreach Community Monitoring/Network Navigator Pools AND Phone Line: ACM Patient Contacted: Spoke to patient/parent/or legal guardian Patient identified by name and : Yes Community Monitoring/Network Navigator Pools AND Phone Line actions taken: Patient scheduled: ER Follow-up Establish Care Appointment 05/31/2024 in [facility] with LISHA BIANCHI - ED follow up 07/01/2024 in [facility] with TEVIN CARSON - est care 08/05/2024 in [facility] with ROBERTO MCKEON - Fhx of pancreatic cancer, Phx of pancreatic mass Action taken: Marked in OnBase for Schedulers PCP field updated Navigation Signature: Orlando Martinez MA May 30, 2024 1:44 [facility]09-16-2024 History of Present illness Narrative* [...] ER Follow-up Establish Care Appointment 05/31/2024 in [facility] with LISHA BIANCHI - ED follow up 07/01/2024 in [facility] with TEVIN CARSON - est care 08/05/2024 in [facility] with ROBERTO MCKEON - Fhx of [...] patient to Network Navigation to schedule a [facility] ED 05/23/24 PCP follow-up appointment. Thank you 1st attempt- Called and left a voicemail for patient to call me back directly. [email or web address] message sent Postponing for 2 days. ACM Reason for Outreach Community Monitoring/Network Navigator Pools & Phone Line: ACM Patient Contacted: Unable or unnecessary to reach patient: Left message Offermobihart message sent Navigation Signature: Orlando Martinez MA [...] patient to Network Navigation to schedule a [facility] ED 05/23/24 PCP follow-up appointment. Thank you Exclusion Criteria - Does not meet exclusion criteria ED DIAGNOSES/REASON(S) FOR ED USE: [place] ED OTHER FINDINGS/SUMMARY: Unable to locate ED discharge summary in Care everywhere Patient Attributed To: E Payer: Mauricio HAMMOND Action Taken: Referrals/Routed: Population Health Navigation: Appointment. Router to COMMUNITY MONITORING PSS POOL [[id number]] Contact made with patient: No, Chart review only. Signature: Lenora KHALIL, RN, [facility] Primary Care Transitional Upholstery Auto Trimmer [facility] [phone] documented in this encounterClinton Memorial Hospital09-16-2024 NoteHNO ID: [id number] Author: ORLANDO MARTINEZ MA Service: ? Author Type: Charge Auditor Type: Progress Notes Filed: 05/30/2024 13:07 Note Text: POPULATION HEALTH NAVIGATION OUTREACH Action/FYI Reason for review or outreach: Chart Review Edyta Priority Emergency Department Utilization REQUESTED ACTION/FYI: Please see ED Utilization summary below: A follow-up appointment is not noted in patient's record. We are forwarding this patient to Network Navigation to schedule a [facility] ED 05/23/24 PCP follow-up appointment. Thank you 1st attempt- Called and left a voicemail for patient to call me back directly. QUIQ message sent Postponing for 2 days. [facility] Reason for Outreach Community Monitoring/Network Navigator Pools AND Phone Line: [facility] Patient Contacted: Unable or unnecessary to reach patient: Left message [facility] [employer] message sent Navigation Signature: Orlando Martinez MA May 30, 2024 1:01 [facility]09-16-2024 NoteHNO ID: [id number] Author: LENORA YEE RN Service: ? Author [...] patient to Network Navigation to schedule a [facility] ED 05/23/24 PCP follow-up appointment. Thank you Exclusion Criteria - Does not meet exclusion criteria ED DIAGNOSES/REASON(S) FOR ED USE: [place] ED OTHER FINDINGS/SUMMARY: Unable to locate ED discharge summary in Care everywhere Patient Attributed To: KERMIT Payer: Mauricio HAMMOND Action Taken: Referrals/Routed: Population Health Navigation: Appointment. Router to [facility] [[id number]] Contact made with patient: No, Chart review only. Signature: Lenora KHAILL, RN, [facility] Primary Care Transitional Upholstery Auto Trimmer [facility] [phone] Healthcare09-16-2024 NotePatient Outreach (AMBCMG) SHAZIA CHOU ([id number]) 1990 F Date Time Provider Department 05/30/24 [...] patient to Network Navigation to schedule a [facility] ED 05/23/24 PCP follow-up appointment. Thank you Exclusion Criteria - Does not meet exclusion criteria ED DIAGNOSES/REASON(S) FOR ED USE: [place] ED OTHER FINDINGS/SUMMARY: Unable to locate ED discharge summary in Care everywhere Patient Attributed To: KERMIT Payer: Mauricio HAMMOND Action Taken: Referrals/Routed: Population Health Navigation: Appointment. Router to COMMUNITY MONITORING PSS POOL [[id number]] Contact made with patient: No, Chart review only. Signature: Lenora KHALIL, RN, [facility] Primary Care Transitional Upholstery Auto Trimmer [facility] [phone] Orlando Martinez MA 05/30/2024 1:07 PM Addendum POPULATION HEALTH NAVIGATION OUTREACH Action/FYI Reason for review or outreach: Chart Review Edyta Priority Emergency Department Utilization REQUESTED ACTION/FYI: Please see ED Utilization summary below: A follow-up appointment is not noted in patient's record. We are forwarding this patient to Network Navigation to schedule a [facility] ED 05/23/24 PCP follow-up appointment. Thank you 1st attempt- Called and left a voicemail for patient to call me back directly. Cogneahart message sent Postponing for 2 days. [facility] Reason for Outreach Community Monitoring/Network Navigator Pools AND Phone Line: [facility] Patient Contacted: Unable or unnecessary to reach patient: Left message Offermobihart message sent Navigation Signature: Orlando Martinez MA May 30, 2024 1:01 PM Orlando Martinez MA 05/30/2024 1:52 PM Addendum POPULATION HEALTH NAVIGATION OUTREACH Action/FYI Patient called back and I scheduled her for a ED follow up with REFUSE DRIVER in office. Also scheduled patient for est care appointment. Updated PCP field PER Navigation rules. ACM Reason for Outreach Community Monitoring/Network Navigator Pools AND Phone Line: AC Patient Contacted: Spoke to patient/parent/or legal guardian Patient identified by name and : Yes Community Monitoring/Network Navigator Pools AND Phone Line actions taken: Patient scheduled: ER Follow-up Establish Care Appointment 05/31/2024 in [facility] with LISHA BIANCHI - ED follow up 07/01/2024 in [facility] with TEVIN CARSON - est care 08/05/2024 in [facility] with ROBERTO MCKEON - Fhx of [...] Assessed Reason for Visit: ACM EDYTA RN [[id number]] Cmt: ED Utilization review per request of [...] mg by mouth daily at bedtime. - hdxldtrazpvt-csq-bcep-FA-vit K (BARIATRIC MULTIVITAMINS) 45 mg iron- 800 mcg-120 mcg cap Take by mouth. Problem List As Of Date 05/30/2024 Noted Resolved Poor growth, affecting management of moth*07/03/2008 03/08/2024 Idiopathic intracranial hypertension [G93.2] 11/20/2022 Primary hypertension [I10] 11/20/2022 03/08/2024 Depression [F32.A] 11/20/2022 Hx of gastric bypass [Z98.84] 11/20/2022 H/O foot surgery [Z98.890] 11/20/2022 Bipolar affective d (more content not included)...[facility] 05-12-2024 NoteHNO ID: [id number] Author: ?, ?, ? Service: ? Author Type: ? Type: Progress Notes Filed: 05/12/2024 17:42 Note Text: MCM sent to pt advising her that her Breast MRI has still not been scheduled. Pancreas was completed. Kimberli Malave PSSKindred Healthcare08-13-2024 History of Present illness Narrative* Lauren Capellan LPN - 04/26/2024 3:43 PM EDT Outreach message sent documented in this encounterClinton Memorial Hospital08-13-2024 NoteHNO ID: [id number] Author: LAUREN CAPELLAN LPN Service: ? Author Type: LICENSED NURSE Type: Progress Notes Filed: 04/26/2024 15:43 Note Text: Outreach message sentKindred Healthcare08-13-2024 NotePatient Outreach (JAYCEEMOC) SHAZIA CHOU ([id number]) 1990 F Date Time Provider Department 04/26/24 [...] mg by mouth daily at bedtime. - egjzwzyvhttb-kax-ihun-FA-vit K (BARIATRIC MULTIVITAMINS) 45 mg iron- 800 [...] 03/08/2024 Encounter Status:Closed by LAUREN CAPELLAN on 04/26/24[facility] 03-08[facility] Hospital Discharge instructions Patient Education 03/08/2024 [...] Follow these instructions at home: Medicines Take cpue-qel-huzpzvw and prescription medicines only as told by your health care provider. Ask your health care provider if the medicine prescribed to you: ?Requires you to avoid driving or using heavy machinery. ?Can cause constipation. You may need to take these actions to prevent or treat constipation: ?Drink enough fluid to keep your urine pale yellow. ?Take dsvg-txd-apdivvv or prescription medicines. ?Eat foods that are [...] provider. Document Revised: 12/08/2022 Document Reviewed: 01/24/2020 [employer] Patient Education 2022 [employer]. 03/08/2024 15:36:59 Head Injury, Adult Head Injury, [...] Ask your health care provider for a iqxu-rq-daqj plan for gradually returning to activities. Ask [...] your friends, family, a trusted colleague, and mortar worker about your injury, symptoms, and restrictions. Have them watch for any new or worsening problems. General instructions Take vilm-skb-hwovmnh and prescription medicines only as told by [...] provider. Document Revised: 07/13/2020 Document Reviewed: 07/13/2020 [employer] Patient Education 2022 [employer]. 03/08/2024 15:36:59 Muscle Strain Muscle Strain A [...] is not too tight. General instructions Take acmn-esp-xmckvrs and prescription medicines only as told by [...] provider. Document Revised: 11/18/2021 Document Reviewed: 11/18/2021 [employer] Patient Education 2022 [employer]. Follow Up Care 03/08/2024 13:07:25 With:David Zazueta Address: [address], [address] [place] [address]- [phone] Business (1) When:03/11/2024 15:24:14 With:Jennie Durand Address: [address], [facility] [address] [place] [address]- Business (1) When:Within 3 Day(s) [facility]06-25-2024 History of Present illness Narrative* Sofia Benavidez [...] 2024 TIME: 10:01 AM * Mirlande Diaz, interior decorator painting - 03/08/2024 10:00 AM EDT Radiology Service [...] PATIENT PRESENTS WITH AN IMPLANTABLE OR ATTACHED PROPERTY WORKER: No RADIOLOGY DEPARTMENT: MR; Exam(s) Completed: Body: Pancreas/Biliary PERIPHERAL IV DATA: Site assessment: Clean,Dry and Intact, Site disposition Discontinued SIGNED BY: KING Tovar March 08, 2024 10:35 AM documented in this encounterClinton [facility] Hospital06-25-2024 NoteHNO ID: [id number] Author: MIRLANDE DIAZ MRI Tech Service: Radiology Author Type: Director Of Product Development Type: Progress Notes Filed: 03/08/2024 10:36 Note [...] PATIENT PRESENTS WITH AN IMPLANTABLE OR ATTACHED PROPERTY WORKER: No RADIOLOGY DEPARTMENT: MR; Exam(s) Completed: Body: Pancreas/Biliary PERIPHERAL IV DATA: Site assessment: Clean,Dry and Intact, Site disposition Discontinued SIGNED BY: KING Tovar March 08, 2024 10:35 [facility]06-25-2024 NoteHNO ID: [id number] Author: SOFIA BENAVIDEZ RN Service: Nursing Author [...] DATE: March 08, 2024 TIME: 10:01 [facility]06-25-2024 Instructions* Patient Instructions* Elia Baires DO - 03/08/2024 8:47 AM EDT 1) Schedule appointment with Austin Mata to discuss Adipex. 2) Schedule MRI of breast 3) I can refill the klonopin as needed. 4) Try steroid as needed twice daily 5) Follow-up in [address] Carson to establish care documented in this encounterClinton Memorial Hospital06-25-2024 NoteHNO ID: [id number] Author: ELIA BAIRES DO Service: ? Author [...] was able to establish with psychiatry at [facility]. Says they stopped her [employer] and switch to Lamictal 75 mg daily. Says this has dramatically improved her symptoms. Currently taking duloxetine 60 mg twice daily and trazodone 50 mg at bedtime. She says that she has only needed to use her clonazepam a few times a week. H (more content not included)...[facility]06-25-2024 History of Present illness Narrative* Elia Baires [...] was able to establish with psychiatry at [facility]. Says they stopped her Rexulti and [...] updated today in the History tab of [facility]. REVIEW OF SYSTEMS: All other reviewed and [...] Dr. Elia Baires DO [facility] Instructions* Patient Instructions* Elia Baires DO - 01/04/2024 10:16 AM EDT 1) Give urine sample today. 2) Placed lab orders. Fast for 12 hours then get labs. 3) I would follow-up with your psychiatrist in January 4) Physical in 1-2 months. documented in [facility]Cl[facility]04-[facility]-2024 NoteHNO ID: [id number] Author: ELIA BAIRES DO Service: ? Author [...] She says that she is originally from [facility] however came up to here today [...] establish with a new psychiatrist at [facility] in [place]. She also sees a counselor weekly. Current [...] No psychosis or maryam. Dr. Elia Baires, [facility]04-22-2024 History of Present illness Narrative* Elia Baires, [...] She says that she is originally from [facility] however came up to here today [...] establish with a new psychiatrist at [facility] in [place]. She also sees a counselor weekly. Current [...] Dr. Elia Baires DO documented in this encounterCl[facility]01-[facility]24 Hospital Discharge instructions* Discharge Instructions* [...] call your doctor or the [facility] at [facility] History of Present illness Narrative* Ce Bustamante RN - 09/16/2023 1:25 PM EST PAT phone call for /EGD completed with pt. Date/time/location (entrance C) of surgery/procedure verified with pt. NPO after MN status verified with pt. Need for canal driver ( ) verified with pt. Instructed pt to take a shower the AM of surgery/procedure and to avoid lotions, creams, jewelry. Encouraged pt to avoid artificial nails and/or nailpolish. Instructed pt to take BP meds with a small sip of water prior to procedure/surgery. [facility]* Encounter Date Diagnosis Assessment Notes Treatment Notes Treatment Clinical Notes Jul, Pancreatic cyst (ICD-10 - K86.2) [facility] Other 10-25-2023 Evaluation note* Encounter Date Diagnosis [...] to stop smoking. Jun,Smoker (ICD-10 - F17.200) [facility] Other 09-27-2023 NoteHNO ID: [id number] Author: Eileen Alvarez MD Service: ? Author Type: Physician Type: Progress Notes Filed: 06/10/2023 3:39 PM Note Text: [facility] Follow Up / Established Virtual Visit I have communicated my name and active licensure. The patient's identity and physical location were verified at the time of this visit. Either the patient or their legal malt liquors sales representative has been informed of the risks and benefits of -- and alternatives to -- treatment through a remote evaluation and consents to proceed with the evaluation remotely. 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 [...] she agreed. She needs to follow with skin care specialist every 6 months. In some patients with [...] her eyes. She has never seen an skin care specialist. CSF protein 24, Glu 55, Pro 28, [...] cognition, memory, speech. Cr (more content not included)...[place] [address]-20-2023 Miscellaneous Notes * Telephone Encounter - Clara [...] [facility] Phone #: [phone] Fabby Cassidy documented in this encounterCl[facility]07-[facility]23 Evaluation + Plan note Diagnostic Tests Pending * Zinc Level 03/19/23 * PTH Intact 03/19/23 * Vitamin A Level 03/19/23 * Vitamin B1 03/19/23 Future Scheduled Tests Laboratory* CBC w/ Auto Diff 07/21/22 Radiology* MA Mamm Screen w/CAD if perf and 3D Tanmay 04/21/22 [facility]05-04-2023 Hospital Discharge instructions Patient Education 01/15/2023 13:37:29 [...] Follow these instructions at home: Medicines Take qeab-wsy-gillzyu and prescription medicines only as told by [...] provider. Document Revised: 11/14/2021 Document Reviewed: 11/14/2021 [employer] Patient Education 2022 Max-Wellness. Follow Up Care 01/15/2023 10:48:45 With:Jennie Durand Address: [address] [place] [address]- Business (1) When:01/18/2023 13:32:37 [facility]05-04-2023 Evaluation + Plan noteExtracted from: Title:ED NoteAuthor:Monse [...] w/CAD if perf and 3D Tanmay 04/21/22 [facility]03-31-2023 Miscellaneous Notes* Telephone Encounter - Clara Durbin [...] [facility] Phone #: [phone] Fabby Cassidy documented in this encounterCl[facility]03-24-[facility]23 Hospital Discharge instructions Patient Education 12/05/2022 12:15:12 Post Op Patient Instructions - FT (CUSTOM) 12/05/2022 12:15:12 BUTTON TUFTER - Post Hysterectomy/Laparotomy/Major Surgery-Thiago (CUSTOM) Instructions post [...] [address], [address] [facility] [place] [address]- Business (1) When:6 weeks With:Gal Das Address: [address] [facility] [place] [address] Business (1) When:2 weeks Comments:Call for any problems. [facility]03-24-2023 Evaluation + Plan noteExtracted from: Title:ANES Post-operative Note - GeneralAuthor:Vu Maria Jr., DO GDate: 12/05/22 Plan Transfer/Discharge: Transfer/Discharge Discharge when meets criteria ( From PACU to Ambulatory Surgery Unit, and To home ). Extracted from:Title:ANES Pre-operative Note - AdultAuthor:Vu Maria Jr., DO GDate:12/05/22 Plan [place] Society of Anesthesiologists (ASA) physical status classification: Class II. Anesthetic Preoperative Plan: Anesthesia General. Future Appointments Appointment Date:01/02/2023 10:00:00 AM Scheduled Provider:Nakia Shah Location:[facility] Appointment Type: Open Future Scheduled Tests Laboratory* CBC w/ Auto Diff 07/21/22 Radiology* MA Mamm Screen w/CAD if perf and 3D Tanmay 04/21/22 [facility]03-09-2023 NoteHNO ID: [id number] Author: Eileen Alvarez MD Service: ? Author Type: Physician Type: Progress Notes Filed: 11/20/2022 10:33 AM Note Text: [facility] New Patient [...] due to congenital deformity, 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 She has never seen an skin care specialist. CSF protein 24, Glu 55, Pro 28, [...] due to congenital deformity, seen in the [facility] for: 1. [...] she agreed. She needs to follow with skin care specialist every 6 months. In some patients with [...] --start acetazolamide (diamox 500m (more content not included)...[id number] Inst[facility]* Patient Instructions* Eileen Alvarez MD - [...] up in 2-4 months documented in this encounterCl[facility]03-09-2023 History of Present illness Narrative* Eileen Alvarez MD - 11/20/2022 7:57 AM EST Images from the original note were not included. [facility] New Patient [...] due to congenital deformity, 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 She has never seen an skin care specialist. CSF protein 24, Glu 55, Pro 28, [...] due to congenital deformity, seen in the [facility] for: 1. [...] she agreed. She needs to follow with skin care specialist every 6 months. In some patients with [...] Take 40 mg by mouth once daily. twqkgcpvrcqg-nvg-lepk-FA-vit K (BARIATRIC MULTIVITAMINS) 45 mg iron- 800 [...] % Lymph% 20 15.9 - 47.3 % [place]% 6 0.0 - 12.0 % Eosin% 3 0.0 - 6.6 % Baso% 1 0.0 - 1.2 % Abs Neut (ANC) 7.64 (H) 1.45 - 7.50 k/uL Abs Lymph 2.18 1.00 - 4.00 K/uL Abs Augusta 0.65 0.00 - 0.86 k/uL Abs Eosin [...] which included preparing to see the patient, lroo-tc-tiuf patient care, completing clinical documentation, obtaining and/or reviewing separately obtained history, performing a medically appropriate examination, counseling and educating the pat ient/family/caregiver, ordering medications, tests, or procedures, independently interpreting results (not separately reported), communicating results to the patient/family/caregiver, and care coordination (not separately reported). Eileen Alvarez MD documented in this encounterCl[facility]02-20-2023 Hospital Discharge instructions Patient Education [...] height. This can be done either in [place] ([place] or metric measurements. Note that charts are available to help you find your BMI quickly and easily without having to do these calculations yourself. To calculate your BMI in [place] ([place] measurements, your health care provider will: [...] medical problems. BMI can be measured using [place] measurements or metric measurements. To interpret your [...] 05/12/2005 Document Revised: 08/13/2018 Document Reviewed: 07/14/2018 [employer] Patient Education 2020 Max-Wellness. 11/03/2022 13:28:26 Tobacco Use Disorder Tobacco Use [...] reduces withdrawal symptoms. NRT is available as: ?Tgzd-siw-hfrmqap gums, lozenges, and skin patches. ?Prescription mouth [...] recovery for many people. General instructions Take iiet-vgb-rvkzdmx and prescription medicines only as told by your health care provider. Check with your health care provider before taking any new prescription or yder-ciw-ccatsul medicines. Decide on a friend, family member, or smoking quit-line (such as 9-312-GTOS-NOW in the [place] that you can call [...] 05/06/2005 Document Revised: 08/18/2018 Document Reviewed: 08/18/2018 [employer] Patient Education 2020 Max-Wellness. 11/03/2022 13:28:23 Alcohol Abuse and Dependence Information, [...] for Disease Control and Prevention: www.cdc.gov National [place] on Alcohol Abuse and Alcoholism: www.niaaa.nih.gov Alcoholics [...] 08/25/2017 Document Revised: 12/20/2019 Document Reviewed: 11/08/2019 [employer] Patient Education 2019 Max-Wellness. 11/03/2022 13:28:19 BMI for Adults BMI for [...] height. This can be done either in [place] ([place] or metric measurements. Note that charts are available to help you find your BMI quickly and easily without having to do these calculations yourself. To calculate your BMI in [place] ([place] measurements, your health care provider will: [...] medical problems. BMI can be measured using [place] measurements or metric measurements. To interpret your [...] 05/12/2005 Document Revised: 08/13/2018 Document Reviewed: 07/14/2018 [employer] Patient Education 2020 [employer] 10/27/2022 11:56:27 Alcohol Abuse and Dependence [...] for Disease Control and Prevention: www.cdc.gov National [place] on Alcohol Abuse and Alcoholism: www.niaaa.nih.gov Alcoholics [...] 08/25/2017 Document Revised: 12/20/2019 Document Reviewed: 11/08/2019 [employer] Patient Education 2020 Max-Wellness. Follow Up Care 10/15/2022 11:28:56 With:Nakia Shah Address: [address] [place] [address] [place] [address]- When:Within 2 Month(s) Comments:f/u smoking cessation and BP [facility] 01-11-2023 Hospital Discharge instructions [...] reduces withdrawal symptoms. NRT is available as: ?Izak-rdm-rieoucb gums, lozenges, and skin patches. ?Prescription mouth [...] recovery for many people. General instructions Take ahvj-pzy-vnnsstq and prescription medicines only as told by your health care provider. Check with your health care provider before taking any new prescription or mfsa-kot-juuetcg medicines. Decide on a friend, family member, or smoking quit-line (such as 0-037-OWDZ-NOW in the [place] that you can call [...] Document Reviewed: 08/18/2018 [employer] Patient Education 2020 Max-Wellness. 09/24/2022 07:23:47 BMI for Adults BMI for [...] height. This can be done either in [place] ([place] or metric measurements. Note that charts are available to help you find your BMI quickly and easily without having to do these calculations yourself. To calculate your BMI in [place] ([place] measurements, your health care provider will: [...] medical problems. BMI can be measured using [place] measurements or metric measurements. To interpret your [...] 05/12/2005 Document Revised: 08/13/2018 Document Reviewed: 07/14/2018 [employer] Patient Education 2020 Max-Wellness. 09/24/2022 07:23:45 Alcohol Use Disorder Alcohol Use [...] centers. Follow these instructions at home: Take azhn-asf-bfnbhtj and prescription medicines only as told by [...] 10/08/2005 Document Revised: 08/13/2018 Document Reviewed: 05/28/2017 [employer] Patient Education 2020 Max-Wellness. 09/24/2022 07:23:42 Borderline Personality Disorder, Adult Borderline [...] with BPD should do these things: Take sefb-mdq-imiwogy and prescription medicines only as told by [...] important. Where to find more information National [place] on Mental Illness: www.marivel.org [place] National [place] of Mental Health: www.nimh.nih.gov Contact a health [...] 12/16/2011 Document Revised: 08/13/2018 Document Reviewed: 11/05/2017 [employer] Patient Education 2020 Max-Wellness. 09/24/2022 07:23:39 Managing Bipolar Disorder Managing Bipolar [...] Follow these instructions at home: Medicines Take bpwt-mwb-dchzhbl and prescription medicines only as told by your health care provider or pharmacist. Ask your pharmacist what qafm-gax-lgdkqvz cold medicines you should avoid. Some medicines [...] services is a problem, search for a [facility] or [facility] mental health care center. Public mental [...] 12/31/2017 Document Revised: 12/23/2019 Document Reviewed: 12/31/2017 [employer] Patient Education 2019 Max-Wellness. Follow Up Care 09/16/2022 13:23:11 With:Aimee Walker CNP Address: [address] [place], [place] [address] [place] [address]- [phone] When:3 months [facility] 12-09-2022 Hospital Discharge instructions Patient Education 08/22/2022 11:12:56 Tension Headache, Adult, Wuon-jq-Dycf Tension Headache, Adult A tension headache is pain, pressure, or aching in your head. Tension headaches can last from 30 minutes to several days. Follow these instructions at home: Managing pain Take nvch-evw-npskzzp and prescription medicines only as told by [...] 11/25/2010 Document Revised: 08/13/2018 Document Reviewed: 12/11/2017 [employer] Patient Education 2020 Max-Wellness. Follow Up Care 08/14/2022 12:38:29 With:Rita SNOWDEN, IGGY Roberson, PED Address: [address], [place] [address] When:1 month only if needed Comments:40 mins [facility] 12-05-2022 Hospital Discharge instructions [...] feet clean and dry. General instructions Take dfnx-jkn-uyatmxp and prescription medicines only as told by [...] 09/26/2016 Document Revised: 06/16/2019 Document Reviewed: 06/16/2019 [employer] Patient Education 2020 Max-Wellness. 08/18/2022 19:56:48 Foot Sprain Foot Sprain A [...] fully hardened. This may takeseveral hours. Take kcqu-fcb-fmuvzan and prescription medicines only as told by [...] 02/20/2003 Document Revised: 09/04/2018 Document Reviewed: 09/04/2018 [employer] Patient Education 2020 Max-Wellness. 08/18/2022 19:56:48 Elastic Bandage and RICE Therapy [...] limityour activities and whether you should start jifmt-kd-pubefy exercises for your injury. Ice Ice your [...] 02/20/2003 Document Revised: 05/21/2018 Document Reviewed: 05/21/2018 [employer] Patient Education [employer]. Follow Up Care 08/18/2022 17:21:15 With:Hilton Gillis Address: [address] [place], [place] [address] Business (1) When:08/21/2022 19:10:21 With:Aimee Walker Address:Unknown When:Within 3 Day(s) [facility]11-29-2022 Procedure [facility]11-29-2022 Progress note Author Lizzeth Malave [facility] August 12, 2022 10:46amNote Date/TimeNovember 2021 10:[address] [address] Hospitalist Progress Note Signed Patient: Shazia Chou MR#: [id number] : 1990 Acct:[id number] Age/Sex: 31 / F Adm Date: 2 Loc: 4N Room: 8C2126-9 Type: ADM INOo Attending Dr: Lizzeth Malave MD Copies to: ~ Date of Service: 08/12/2022 Subjective Subjective Narrative: Shazia Chou is a 31yo F. She was transferred here last night from [facility] with worsening headache and blurry vision [...] Flu Vac Quad (36month+)Pf 0.5 Ml Syringe [id number] IM 08/13/22 09:01 .ONCE ONE Omeprazole 20 [...] signed by Lizzeth Malave MD> 08/12/22 1046 [facility] Work Phone: 1(427) 510-601811-29-2022 Consult note Author Kenrick Lee [facility] August 12, 2022 4:21pmNote Date/TimeNovember 2021 8:13[place] [id number] Neurology Consult Note Signed Patient: Shazia Chou MR#: [id number] : 1990 Acct:[id number] Age/Sex: 31 / F Adm Date: 2 Loc: 4N Room: 1A8894-7 Type: ADM INOo Attending Dr: Lizzeth Malave MD Copies to: DO Jennie Wise ANP-C Ruta Semaskiene, MD~ HPI Consult Date: 08/12/22 Stem Sizer: ASTON Bro with Dr Lee Reason for consult: Headache, blurred vision Consult Narrative HPI: Patient is a 31-year-old female with medical history of bipolar, personality disorder, depression, and tobacco use in addition to 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 She has been seen in neurological consultation with request of the hospital service for headache and blurred vision. Patient initially presented to [facility] and was transferred to [facility] for evaluation. She was seen in the [place] [facility] on 08/08/2022 with similar symptoms and [...] this is when she called EMS. At [facility] she had a CT scan of [...] contributing to the headacheand hypertension. [facility] 115/71. [...] History (Updated 08/12/22 @ 09:50 by Cynthia Borrgeo) Alcoholism in recovery Bipolar 1 disorder Borderline [...] extremity from prior surgery CEREBELLAR EXAM: * Agvjux-hn-lfay and alternating movements are intact and normal in bilateral upper extremities * Qpqf-oj-bfci and alternating movements are intact and normal [...] puncture based on these results. Evaluation at [facility]: * CT scan head is nonacute. [...] once daily). Okay for discharge now from [facility]. Documented By: EDINSON Dias [id number] Signed By: <Electronically signed by EDINSON Niño> 08/12/22 0958 <Electronically signed by Kenrick Lee DO> 08/12/[address] [facility] Work Phone: 1(903) 665-931811-28-2022 History and physical note Author Sangeetha Peña [facility] August 11, 2022 9:43pmNote Date/TimeNov2021 9:08pm[place] [address] Hospitalist H&P Signed Patient: Shazia Chou MR#: [id number] : 1990 Acct:[id number] Age/Sex: 31 / F Adm Date: 2 Loc: Room: [address] [place] [address] Type: ADM IN Attending Dr: Erin Barahona MD Copies to: MD Erin Mcwilliams MD~ HPI DATE OF EXAMINATION: 08/11/22 CHIEF COMPLAINT: Headache with blurry vision HISTORY OF PRESENT ILLNESS: Patient is a pleasant 31-year-old female with history of borderline personality disorder, bipolar disorder and depression. She was accepted by daytime hospitalist when contacted by [facility] physician due to concern for [...] pain or dysuria. She [facility] [place] [facility] with similar symptoms. [facility]. Patient continues to [...] vision: Plan Patient has been transferred from [facility] when she presented with complaint of headache and blurry vision. During my evaluation her blood pressure is in 115 systolic and complaining of headache with blurry vision. Denies diplopia with no pain in extraocular movement. There is concern for possible idiopathic intracranial hypertension and patient has been transferred to [facility] for further management and neurology evaluation. Will [...] <Electronically signed by Sangeetha Peña MD> 08/11/222142 [facility] Work Phone: 1(815) 571-309211-25-2022 Evaluation + Plan noteExtracted from:Title: ED NoteAuthor:Bakari [...] Influenza A&B Ag Rapid COVID Antigen ([facility]) UA With Cult Reflex Future Scheduled Tests Laboratory* CBC w/ Auto Diff 07/21/22 Radiology* MA Mamm Screen w/CAD if perf and 3D Tanmay 04/21/22 [facility]11-25-2022 Hospital Discharge instructions Patient Education 08/08/2022 11:39:38 [...] health care provider to lose weight. Take wynl-qig-kupbajr and prescription medicines only as told by [...] 11/09/2002 Document Revised: 08/13/2018 Document Reviewed: 07/22/2017 [employer] Patient Education 2020 Max-Wellness. Follow Up Care 08/08/2022 09:04:11 With:Kenrick Lee Address: [address], [place] [address] Business (1) When:08/11/2022 11:38:22 Comments:Follow-up with Dr. [...] you develop any new or worsening symptoms. [facility]11-07-2022 Evaluation + Plan note Future Scheduled Tests Laboratory* CBC w/ Auto Diff 07/21/22 Radiology* MA Mamm Screen w/CAD if perf and 3D Tanmay 04/21/22 [facility] 11-07-2022 Evaluation + Plan note Future Scheduled Tests Laboratory* CBC w/ Auto Diff 07/21/22 [facility]11-07-2022 Hospital Discharge instructions Patient Education 07/21/2022 11:22:36 [...] Follow these instructions at home: Medicines Take hqfm-vlz-mypzeft and prescription medicines only as told by your health care provider or pharmacist. Ask your pharmacist what dzjd-rrs-qzsgfes cold medicines you should avoid. Some medicines [...] services is a problem, search for a [facility] or [facility] mental health care center. Public mental [...] 12/31/2017 Document Revised: 12/23/2019 Document Reviewed: 12/31/2017 [employer] Patient Education 2020 [employer] 07/21/2022 11:21:57 Tobacco Use Disorder Tobacco [...] reduces withdrawal symptoms. NRT is available as: ?Sfre-err-qseizuu gums, lozenges, and skin patches. ?Prescription mouth [...] recovery for many people. General instructions Take grzx-opc-erlavbn and prescription medicines only as told by your health care provider. Check with your health care provider before taking any new prescription or zcmu-aph-surbmax medicines. Decide on a friend, family member, or smoking quit-line (such as 3-162-DNQI-NOW in the [place] that you can call [...] 05/06/2005 Document Revised: 08/18/2018 Document Reviewed: 08/18/2018 [employer] Patient Education 2020 Max-Wellness. 07/21/2022 11:21:55 BMI for Adults BMI for [...] height. This can be done either in [place] ([place] or metric measurements. Note that charts are available to help you find your BMI quickly and easily without having to do these calculations yourself. To calculate your BMI in [place] ([place] measurements, your health care provider will: [...] medical problems. BMI can be measured using [place] measurements or metric measurements. To interpret your [...] 05/12/2005 Document Revised: 08/13/2018 Document Reviewed: 07/14/2018 [employer] Patient Education 2020 [employer] 07/21/2022 11:21:53 Leukocytosis Leukocytosis Leukocytosis means [...] Follow these instructions at home: Medicines Take pirn-oca-ohrjatw and prescription medicines only as told by [...] 08/19/2012 Document Revised: 05/26/2019 Document Reviewed: 05/26/2019 [employer] Patient Education 2019 [employer]. Follow Up Care 07/18/2022 10:46:12 With:Aimee Walker CNP Address: When: only if needed [facility] 11-04-2022 Miscellaneous Notes* Telephone Encounter - Cat Rojo LPN - 07/18/2022 11:04 AM EDT Call placed to patient, no answer. Left message for patient to proceed with nicotine testing prior to scheduling. Please transfer to plastic surgery nurse if patient returns call with questions. documented in this encounterCleveland [id number] Evaluation + Plan note Future Scheduled Tests Radiology* MRI Breast w/o and w/ Contrast, Left 05/13/22 * MA Mamm Screen w/CAD if perf and 3D Tanmay 04/21/22 [facility] [place] [id number] Hospital Discharge instructions Patient Education 05/13/2022 10:45:43 [...] ?Hypothyroidism. ?Polycystic ovarian syndrome (PCOS). ?Binge-eating disorder. ?[place] syndrome. Taking certain medicines, such as steroids, [...] food choices, such as grocery stores and [employer] markets. What are the signs or symptoms? [...] and how much exercise you get. Take ejsn-oue-ysmbmqn and prescription medicines only as told by [...] Document Reviewed: 05/05/2019 Elsevier Patient Education 2019 [employer]. [facility] [place] [id number] Evaluation + Plan note Future Scheduled Tests Radiology* MA Mamm Screen w/CAD if perf and 3D Tanmay 04/21/22 [facility]08-08-2022 Hospital Discharge instructions Patient Education 04/21/2022 10:14:53 [...] height. This can be done either in [place] ([place] or metric measurements. Note that charts are available to help you find your BMI quickly and easily without having to do these calculations yourself. To calculate your BMI in [place] ([place] measurements, your health care provider will: [...] medical problems. BMI can be measured using [place] measurements or metric measurements. To interpret your [...] 05/12/2005 Document Revised: 08/13/2018 Document Reviewed: 07/14/2018 [employer] Patient Education 2020 [employer]. 04/21/2022 10:14:51 Lymphadenopathy Lymphadenopathy Lymphadenopathy means that [...] at home: Get plenty of rest. Take pyka-iwq-lxeybmw and prescription medicines only as told by your health care provider. Your health care provider may recommend qbfy-qza-cztaqsy medicines for pain. If directed, apply heat [...] 06/09/2009 Document Revised: 08/13/2018 Document Reviewed: 07/16/2018 [employer] Patient Education 2020 [employer]. 04/21/2022 10:14:49 Tobacco Use Disorder Tobacco Use [...] reduces withdrawal symptoms. NRT is available as: ?Hatg-xvf-lqglgvi gums, lozenges, and skin patches. ?Prescription mouth [...] recovery for many people. General instructions Take qmbf-vae-hljncbv and prescription medicines only as told by your health care provider. Check with your health care provider before taking any new prescription or lwvf-bip-wfpqohy medicines. Decide on a friend, family member, or smoking quit-line (such as 9-326-LSFR-NOW in the [place] that you can call [...] 05/06/2005 Document Revised: 08/18/2018 Document Reviewed: 08/18/2018 [employer] Patient Education 2020 [employer]. Follow Up Care 04/17/2022 09:51:05 With:Aimee Walker CNP Address: When: only if needed [facility] 08-07-2022 Hospital Discharge instructions [...] at home: Get plenty of rest. Take tbst-zmf-xlmbhwd and prescription medicines only as told by your health care provider. Your health care provider may recommend pizy-nyv-geidesg medicines for pain. If directed, apply heat [...] 06/09/2009 Document Revised: 08/13/2018 Document Reviewed: 07/16/2018 [employer] Patient Education 2020 [employer] Follow Up Care 04/20/2022 14:55:22 With:Aimee Walker Address: [address], [place] [address] [phone] Business (1) When:04/23/2022 16:08:48 Comments:Follow-up with your primary care provider in 3 to 5 days. If symptoms worsen, do not improve, or new symptoms arise please report back to emergency department for further evaluation. [facility]08-07-2022 Evaluation + Plan noteExtracted from: Title:ED NoteAuthor:Dony [...] Scheduled Provider:Aimee Walker CNP Location:[facility] Appointment Type: Open [facility]07-21-2022 Hospital Discharge instructions Patient Education 04/03/2022 19:32:39 [...] 03/15/2012 Document Revised: 08/24/2019 Document Reviewed: 08/24/2019 [employer] Patient Education 2020 [employer]. Follow Up Care 04/03/2022 16:59:04 With:Aaron BONILLAAimee Address: [phone] When:04/06/2022 [facility]06-17-2022 Miscellaneous Notes* Telephone Encounter - Lina Chavez RN - 02/28/2022 3:[address] Mckee, patient must be 4 weeks nicotine free prior to scheduling and collection of cosmetic payment. documented [facility] History of Present illness Narrative* Amee Gonzalez PA-C - 02/12/2022 10:38 AM EDT Images from the original note were not included. Otolaryngology Consultation/Evaluation Note Head and Neck [place] ASSESSMENT: Burning tongue (primary encounter diagnosis) Irritation of oral cavity PLAN: - Oral mucosa at floor of mouth, Portage's ducts, and frenulum irritated with mild erythema [...] Take 40 mg by mouth once daily. irucqurmnurz-ejl-ndvb-FA-vit K (BARIATRIC MULTIVITAMINS) 45 mg iron- 800 [...] and tender to palpation specifically around b/l Portage's ducts and frenulum. Ventral aspect of tongue [...] Level: 3 - Low documented in this encounterCl[facility]05-[facility] Hospital Discharge instructions Patient Education [...] reduces withdrawal symptoms. NRT is available as: ?Idnp-kth-hctodbj gums, lozenges, and skin patches. ?Prescription mouth [...] recovery for many people. General instructions Take oaoh-sys-swlgxdx and prescription medicines only as told by your health care provider. Check with your health care provider before taking any new prescription or ndlk-ufz-oprsimi medicines. Decide on a friend, family member, or smoking quit-line (such as 4-396-UAIZ-NOW in the [place] that you can call [...] 05/06/2005 Document Revised: 08/18/2018 Document Reviewed: 08/18/2018 [employer] Patient Education 2020 [employer]. 02/06/2022 09:33:46 BMI for Adults BMI for [...] height. This can be done either in [place] ([place] or metric measurements. Note that charts are available to help you find your BMI quickly and easily without having to do these calculations yourself. To calculate your BMI in [place] ([place] measurements, your health care provider will: [...] medical problems. BMI can be measured using [place] measurements or metric measurements. To interpret your [...] 05/12/2005 Document Revised: 08/13/2018 Document Reviewed: 07/14/2018 [employer] Patient Education 2020 [employer]. Follow Up Care 02/05/2022 13:43:34 With:Aimee Walker CNP Address: When: only if needed [facility] 05-18-2022 Hospital Discharge instructions [...] height. This can be done either in [place] ([place] or metric measurements. Note that charts are available to help you find your BMI quickly and easily without having to do these calculations yourself. To calculate your BMI in [place] ([place] measurements, your health care provider will: [...] medical problems. BMI can be measured using [place] measurements or metric measurements. To interpret your [...] 05/12/2005 Document Revised: 08/13/2018 Document Reviewed: 07/14/2018 [employer] Patient Education 2020 [employer]. 01/29/2022 11:02:54 Complicated Grief Complicated Grief Grief [...] friends and loved ones. General instructions Take yfge-zlr-irokslw and prescription medicines only as told by [...] 08/31/2006 Document Revised: 08/13/2018 Document Reviewed: 06/16/2018 [employer] Patient Education 2020 [employer]Wellness. 01/29/2022 11:02:50 Alcohol Abuse and Dependence Information, [...] for Disease Control and Prevention: www.cdc.gov National [place] on Alcohol Abuse and Alcoholism: www.niaaa.nih.gov Alcoholics [...] 08/25/2017 Document Revised: 12/20/2019 Document Reviewed: 11/08/2019 [employer] Patient Education 2019 [employer]Wellness. 01/29/2022 11:02:46 Managing Bipolar Disorder Managing Bipolar [...] Follow these instructions at home: Medicines Take bljg-xig-fpvreki and prescription medicines only as told by your health care provider or pharmacist. Ask your pharmacist what qyhu-tql-sarxrrg cold medicines you should avoid. Some medicines [...] a problem, search for a local or [facility] mental health care center. Public mental [...] 12/31/2017 Document Revised: 12/23/2019 Document Reviewed: 12/31/2017 [employer] [facility] [employer] Patient Education 2020 [employer]Well[employer]. [facility] 05-02-2022 Miscellaneous Notes* Telephone [...] another consult she would. Please advise at [phone] documented in this encounterCl[facility]04-[facility]-2022 Miscellaneous Notes* Telephone Encounter - [...] in a surgical slip. Patient understood. Rocio Hetser Ma documented in this encounterCl[facility]05-21-[facility]21 History of Present illness Narrative* Radha Jara - 02/01/2021 9:47 AM EDT CLINICAL PHARMACY NOTE: MEDS TO BEDS Total # of Prescriptions Filled: 2 The following medications were delivered to the patient: Percocet 5-325mg Augmentin 875-125mg Additional Documentation: delivered to patient in room 236 02/01 at 9:44am. Co- pay paid with credit on [employer] ($4.31). * Gamaliel Vickers DO - 01/31/2021 [...] diet Overall improvement * Melissa Singh [facility] - 01/30/2021 9:03 PM EDT Images from [...] Singh RPH 19:00 PM documented in this encounter8thBridge Phone: [phone]) 772-415605-15-2021 History of Present illness Narrative* Jasmine Burch RN - 01/26/2021 1:51 PM EDT Infusion complete, no complications, IV out and dressing applied. Encouraged patient to call with any questions. Patient left unit with steady gait to private residence. documented in this encounterToledo HospitalBambuser Phone: 1(424) 328-796504-27-2021 History of Present illness Narrative* Radha Jara - 01/08/2021 5:59 PM EDT CLINICAL PHARMACY NOTE: MEDS TO [facility] Select Patient?: No Total # of Prescriptions Filled: 3 The following medications were delivered to the patient: Percocet 5-325mg Promethazine 25mg Pantoprazole 40mg Total # of Interventions Completed: 0 Time Spent (min): 0 Additional Documentation: delivered to patient in room 247 01/08 at 5:43pm. Co- pay paid with [employer] ($7.02). * Gal Atwood DO - 01/08/2021 [...] obesity with BMI of 40.0-44.9, adult ([facility]) [E66.01, Z68.41] 05/16/2020 30 y.o. female [...] obtained for OR 01-07-21 documented in this [employer] Phone: 1(870) 676-634304-27-2021 Hospital Discharge instructions* Instructions* Gamaliel Vickers, - 01/08/2021 Discharge Instructions for Surgery You had a Tian-en- Y Gastric Bypass (11140) surgery to treat obesity. Recovery from this [...] scheduled appointment, please call the office at [phone]. Call Your Doctor If Any of the [...] emergency, call 911 immediately. documented in this [facility] Phone: 1(919) 360-693204-12-2021 Hospital Discharge instructions* Instructions* Mahesh Price APRN - REFUSE DRIVER - 12/24/2020 Images from the original note [...] drive you home after your procedure. Your canal driver must be 18 years of age [...] questions, call the Pre-Admission Testing Unit at [phone]. Day of Surgery/Procedure As a patient at [facility] you can expect quality medical and nursing care that is centered on your individual needs. Our goal is to make your surgical experience as comfortableas possible . Directions to the Surgery Center [facility] is located at [address] [place] [address]. Please pull into the Emergency parking lot and stop at the line mechanic arcos. We offer free line mechanic service for all our surgery patients, if you choose not to have line mechanic parking we have additional parking across the street.You will enter the facility following the [facility] sign. Please stop at the cashier receptionist desk where you will be checked in by the staff. If you have any questions please call [phone]. Transportation after your procedure. You will need a friend or family member to drive you home after your procedure. Your canal driver must be18 years of age or [...] You may shave your face or neck. Deep Water your teeth but do not swallow water. [...] or the day of surgery, please call [phone], or [phone] documented in this [facility] Phone: [phone]) 992-359204-12-2021 History of Present illness Narrative* Mahesh Price, CEDRIC - REFUSE DRIVER - 12/24/2020 10:30 AM EDT Anesthesia Focused [...] Nicole for therapy Borderline personality disorder (HCC) [facility], therapist Jacki Nicole Depression Flat feet, bilateral Foot pain, bilateral Dr. Octavio Sims, director of product development GERD (gastroesophageal reflux disease) managed by Dr. [...] BLEVINS 12/24/20 11:38 AM documented in this [facility] Work Phone: evaluation + Plan note No data available for this section [facility] Evaluation + Plan note Referrals to Other Providers Referred by: Aimee Walker CNP [facility] Evaluation + Plan note Future Appointments Appointment Date:04/04/2022 02:40:00 PM Scheduled Provider:Rahul Salinas DO Location:[facility] [place] [facility] Future App[facility]ments Appointment Date:04/22/2022 09:15:00 AM Scheduled Provider: [facility] Type:MA Diagnostic (FT) Appointment Date:04/22/2022 10:00:00 AM Scheduled Provider: [facility] Appoint[facility] Type:US Breast (FT) Future Scheduled Tests Radiology* US Breast Unilateral Lt Complete 04/21/22 * US Breast Unilateral Rt Complete 04/21/22 * MA Mamm Diag w/CAD if perf and 3D Tanmay 04/22/22 * MA Mamm Screen w/CAD if perf and 3D Tanmay 04/21/22 [facility] Evaluation + Plan note Future Appointments Appointment Date:08/22/2022 10:20:00 AM Scheduled Provider:Rahul Salinas DO Location:[facility] [place] Appointment Type: Hospital Follow Up w/TCM Future Scheduled Tests Laboratory* CBC w/ Auto Diff 07/21/22 Radiology* MA Mamm Screen w/CAD if perf and 3D Tanmay 04/21/22 [facility] Future Appointments Appointment Date:11/03/2022 01:00:00 PM Scheduled Provider:Nakia Shah Location:[facility] Appointment Type:FM Open Future Scheduled Tests Laboratory* CBC w/ Auto Diff 07/21/22 Radiology* MA Mamm Screen w/CAD if perf and 3D Tanmay 04/21/22 [facility] Future Appointments Appointment Date:01/02/2023 10:00:00 AM Scheduled Provider:Nakia Shah Location:[facility] Appointment Type:FM Open Future Scheduled Tests Laboratory* CBC w/ Auto Diff 07/21/22 Radiology* MA Mamm Screen w/CAD if perf and 3D Tanmay 04/21/22 [facility] LeCabaluation + Plan note Future Appointments Appointment Date:12/05/2022 09:00:00 AM Scheduled Provider: Location:[facility] Appointment Type:Surgery FT Appointment Date:01/02/2023 10:00:00 AM Scheduled Provider:Nakia Shah Location:[facility] Appointment Type:FM Open Future Scheduled Tests Laboratory* CBC w/ Auto Diff 07/21/22 Radiology* MA Mamm Screen w/CAD if perf and 3D Tanmay 04/21/22 [facility] Future Appointments Appointment Date:12/25/2023 10:15:00 AM Scheduled Provider:Otto Larsen MD [facility] Type:Cardiology New Patient (FT) [facility] Future Appointments Appointment Date:11/10/2024 08:00:00 AM Scheduled Provider: [facility] Appointment Type:US Abdominal/Pelvis (FT) Future Scheduled Tests Radiology* US Abdomen, Limited 11/10/24 [facility] evaluation + Plan note Future Appointments Appointment Date:11/15/2024 01:45:00 PM Scheduled Provider:Orlando Kate PA-C Location:[facility] [place] Appointment Type:Pain Management - New (FT) [facility] evaluation + Plan note Future Appointments Appointment Date:12/19/2024 10:15:00 AM Scheduled Provider:Orlando Kate PA-C Location:[facility] [place] Appointment Type:Pain Management - Follow Up (FT) [facility] evaluation + Plan note Future Appointments Appointment Date:01/24/2025 09:30:00 AM Scheduled Provider: Location:[facility] Appointment Type:Surgery FT Appointment Date:01/27/2025 10:15:00 AM Scheduled Provider:Orlando Kate PA-C Location:[facility] [place] Appointment Type:Pain Management - Follow Up (FT) [facility] evaluation + Plan note Future Appointments Appointment Date:02/13/2025 08:30:00 AM Scheduled Provider: Location:[facility] Appointment Type:Surgery FT Appointment Date:02/15/2025 01:30:00 PM Scheduled Provider:Orlando Kate PA-C Location:[facility] [place] Appointment Type:Pain Management - Follow Up (FT) Appointment Date:02/16/2025 01:00:00 PM Scheduled Provider:Jak Peace MD Location:FT.Cardiology Clinic Appointment Type:Cardiology New Patient (FT) [facility] evaluation + Plan note Future Appointments Appointment Date:02/17/2025 09:15:00 AM Scheduled Provider: Location:[facility] Appointment Type:Surgery FT Appointment Date:02/20/2025 02:30:00 PM Scheduled Provider:Orlando Kate PA-C Location:FT.[facility] [place] Appointment Type:Pain Management - Follow Up (FT) Appointment Date:03/16/2025 02:30:00 PM Scheduled Provider:Jak Peace MD Location:FT.Cardiology Clinic Appointment Type:Cardiology Follow Up (FT) Future Scheduled Tests Radiology* NM Myocardial Spect Rest/Stress 1 Day 02/16/25 [facility] Evaluation + Plan note Future Appointments Appointment [...] NM Myocardial Spect Rest/Stress 1 Day 03/13/25 [facility] evaluation + Plan note Future Appointments Appointment Date:03/03/2025 08:30:00 AM Scheduled Provider: Location:[facility] Appointment Type:Surgery FT Appointment Date:03/09/2025 12:30:00 PM Scheduled Provider:Babar Mayers DO Location:[facility] [place] Appointment Type:Pain Management - Follow Up [...] NM Myocardial Spect Rest/Stress 1 Day 03/13/25 [facility] evaluation + Plan note Future Appointments Appointment Date:03/27/2025 08:45:00 AM Scheduled Provider: Location:[facility] Appointment Type:Surgery FT Appointment Date:04/17/2025 08:00:00 AM Scheduled Provider: [facility] App[facility] Type:NM Myocard Spect Multi Rest/Stress-Res Appointment Date:04/17/2025 09:00:00 AM Scheduled Provider: Location[facility] Appointment Type:NM Myocard Spect Multi Rest/Stress - R Appointment Date:04/17/2025 09:30:00 AM Scheduled Provider: Location[facility] Appointment Type:NM Myocard Spect Multi Rest/Stress-Str Appointment Date:04/17/2025 10:30:00 AM Scheduled Provider: Location[facility] Appointment Type:NM Myocar Spect Multi Rest/Stress - St Appointment Date:05/02/2025 08:15:00 AM Scheduled Provider:Orlando Kate PA-C Location:.[facility] [place] Appointment Type:Pain Management - Follow Up (FT) Future Scheduled Tests Radiology* NM Myocardial Spect Rest/Stress 1 Day 04/17/25 [facility] evaluation note* Diagnosis Preop testing- Primary Preoperative examination, unspecified documented in this encounter [employer] Phone: evaluation note* Diagnosis Post-op pain- Primary Other acute postoperative pain Status post gastric bypass for obesity Bariatric surgery status Morbid obesity with BMI of 40.0-44.9, adult (HCC) Hiatal hernia Diaphragmatic hernia without mention of obstruction or gangrene documented in this encounter [facility] Phone: evalfbpyuf note* Diagnosis Dehydration documented in this encounter [facility] Phone: evalaizrye note* Diagnosis Generalized abdominal pain- Primary Abdominal pain, generalized documented in this encounter [employer] Phone: evaluation note* Diagnosis Surgery, elective- Primary Unspecified elective surgery for purposes other than remedying health states Omental infarction (HCC) Acute vascular insufficiency of intestine Intra-abdominal abscess (HCC) Peritoneal abscess documented in this encounter [facility] Phone: evaluation note* Diagnosis Omental infarction (HCC) Acute vascular insufficiency of intestine documented in this encounter [facility] Phone: evalegybfe note* Diagnosis Hypertrophy of breast- Primary Upper back pain Excess skin [facility] [place] [facility]* Diagnosis Burning tongue- Primary Glossodynia Irritation of oral cavity Other and unspecified diseases of the oral soft tissues [facility] this encounter [facility]* Diagnosis Onset Date Resolution Status Bipolar 1 disorder acuteBlurry visionacuteBorderline personality disorderacuteHeadacheacuteMDD (major depressive disorder)acutePalpitationacute [facility] Work Phone: Evaluation note* Diagnosis Idiopathic intracranial hypertension- Primary Benign intracranial hypertension Depression, unspecified depression type Primary hypertension Unspecified essential hypertension Hx of gastric bypass Bariatric surgery status H/O foot surgery Personal history of surgery to other organs documented in this encounter [facility] HospitalEvaluation noteNo assessment information availableSt. [facility]'S [facility] Work Phone: Evaluation noteNo InformationNort FloorPrep Solutions Other Evaluation note* Diagnosis Panic disorder- Primary Panic disorder without agoraphobia Borderline personality disorder (HCC) Borderline personality disorder Bipolar affective disorder in remission (HCC) Chronic alcoholism in remission (HCC) Other and unspecified alcohol dependence, in remission Routine health maintenance Routine general medical examination at a health care facility documented [facility] encounter [facility]* Diagnosis Panic disorder- Primary Panic disorder without agoraphobia documented in this encounter [facility] [place] [facility]* Diagnosis Routine health maintenance- Primary Routine [...] disorder, unspecified type documented in this encounter [facility] note* Diagnosis 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 documented in this encounter [facility] note* Diagnosis Idiopathic intracranial hypertension Benign intracranial hypertension documented in this encounter [facility] note* Diagnosis Chest pain, unspecified type- Primary Palpitations Bipolar affective disorder in remission (HCC) History of substance abuse (HCC) Other, mixed, or unspecified nondependent drug abuse, unspecified Borderline personality disorder (HCC) Borderline personality disorder Serum calcium elevated Hypercalcemia documented in this encounter [facility] note* Diagnosis Mass of upper outer quadrant of left breast documented in this encounter [facility] note* Diagnosis Abnormal mammogram- Primary Abnormal mammogram, unspecified Mass of upper outer quadrant of left breast Fibrocystic breast changes of both breasts Mastodynia Inversion of left nipple Bloody discharge from left nipple Other sign and symptom in breast Nipple discharge Other sign and symptom in breast Mass of upper outer quadrant of left breast documented in this encounter [facility] note* Diagnosis Abnormal mammogram of left breast documented in this encounter [facility] note* Diagnosis Bipolar affective disorder in remission (HCC)- Primary Borderline personality disorder (HCC) Borderline personality disorder Anxiety disorder, unspecified type Chest pain, unspecified type Iron deficiency anemia, unspecified iron deficiency anemia type documented in this encounter [facility] note* Diagnosis Angina pectoris Other and unspecified angina pectoris Shortness of breath Palpitations Family history of ischemic heart disease Primary hypertension Unspecified essential hypertension Current smoker BMI 29.0-29.9,adult documented in this encounter [facility] Work Phone: Evaluation note* Diagnosis Bipolar affective disorder in remission (HCC) Borderline personality disorder (HCC) Borderline personality disorder Anxiety disorder, unspecified type documented in this encounter [facility] note* Diagnosis Angina pectoris Other and unspecified angina pectoris Shortness of breath Palpitations Family history of ischemic heart disease Primary hypertension Unspecified essential hypertension documented in this encounter [facility] Work Phone: Evaluation note* Diagnosis Ataxia- Primary Lack of coordination Myalgia Unspecified myalgia and myositis [facility] Diagnosis Myalgia Unspecified myalgia and myositis documented in this encounter [facility]* Diagnosis Bipolar affective disorder in remission (HCC) Borderline personality disorder (HCC) Borderline personality disorder Anxiety disorder, unspecified type [facility] Acute pharyngitis, unspecified etiology- Primary Pharyngitis, unspecified etiology documented in this encounter [facility]* Diagnosis Pseudoangiomatous stromal hyperplasia of breast- Primary Hypertrophy of breast documented in this encounter [facility] note* Diagnosis Pseudoangiomatous stromal hyperplasia of breast- Primary documented in this encounter [facility] note* Diagnosis Hematoma- Primary Contusion of unspecified site Pseudoangiomatous stromal hyperplasia of breast documented in this encounter [facility] note* Diagnosis Hematoma- Primary Contusion of unspecified site Pseudoangiomatous stromal hyperplasia of breast documented in this encounter [facility]* Diagnosis IIH (idiopathic intracranial hypertension)- Primary Benign intracranial hypertension documented in this encounter [facility] note* Diagnosis Onset Date Resolution Status Admit Date Chronic headaches acuteOctober 2024 8:20amParesthesiaacuteOctober 2024 8:20am [facility] Work Phone: Hiswnjd general Narrative - Reported* Type Description Date Medical History plantar fasciitis Medical Historymigraine headacheMedical Historyborderline personality disorder Medical Historychronic depressionMedical HistorybipolarSurgical HistoryC section Surgical Historyc sectionSurgical Historytubal ligationSurgical History HYSTERECTOMYSurgical Historyoral surgerySurgical Historygastric bypass Hospitalization Historymental health issues Cognitive Match Other Hisyyhf general Narrative - Reported* Type Description Date Medical History plantar fasciitis Medical Historymigraine headacheMedical Historyborderline personality disorder Medical Historychronic depressionMedical HistorybipolarSurgical HistoryC section Surgical Historyc sectionSurgical Historytubal ligationSurgical History HYSTERECTOMYSurgical Historyoral surgerySurgical Historygastric bypass Hospitalization Historymental health issuesH[facility]ization History[facility] [place] yhtadaeehtgi84/2023 Cognitive Match Other Hospital Discharge instructions No data available for this section [facility] Hospital Discharge instructions Additional Instructions Follow-up with your PCP and neurology Rest Push fluids Tylenol or Motrin if needed for pain Return [facility] any [facility] Additional Instructions [...] directed for pain unless a prescription was provided.[facility] Work Phone: Hospital Discharge instructions Additional Instructions Continue current meds Follow-up with neurology if not improved Return if symptoms are worse[facility] Work [facility]: Progress note No data available for this section [facility]Reason for referral (narrative)* Outpatient Procedure (Routine) - New RequestSpecialtyDiagnoses / ProceduresReferred By ContactReferred To ContactCOMMUNITY [facility] Diagnoses Chest pain, unspecified type Palpitations Procedures ECG COMPLETE ECG ROUTINE ECG W/LEAST 12 LDS W/I&[place] [address] [place] [address] [facility] [address] [place] [address] Referral IDStatusReasonStart DateExpiration DateVisits RequestedVisits [id number] Request Auto-Generated Referral / [facility] for referral (narrative)* Diagnostic Procedure Only (Routine) - ClosedSpecialtyDiagnoses / ProceduresReferred By ContactReferred To ContactBR IMAGING Diagnoses Abnormal mammogram of left breast Procedures US BIOPSY BREAST LEFT BX BREAST W/DEVICE 1ST LESION ULTRASOUND GUID Abi Asif MD [address] [facility] [address] [address] [facility] [address] [place] [phone] Referral IDStatusReasonStart DateExpiration DateVisits RequestedVisits [id number] Auto-Generated Referral / [facility] for referral (narrative)No reason for referral information availableSt. [facility] Work Phone: Reason for visit Narrative* Diagnostic Procedure Only (Routine) - ClosedSpecialtyDiagnoses / ProceduresReferred By ContactReferred To ContactBR IMAGING Diagnoses Abnormal mammogram of left breast Procedures US BIOPSY BREAST LEFT BX BREAST W/DEVICE 1ST LESION ULTRASOUND GUID Abi Asif MD [address] [facility] [address] [address] [facility] [address] [place] [phone] Referral IDStatusReasonStart DateExpiration DateVisits RequestedVisits [id number] Auto-Generated Referral / [facility] for visit Narrative* Cardiovascular (Routine) - AuthorizedSpecialtyDiagnoses / ProceduresReferred By ContactReferred To ContactCardiology Diagnoses Angina pectoris Shortness of breath Procedures ECG 12 Lead Aleah Howard MD [address] [address] Phone: tel: fax: Referral IDStatusReasonStart DateExpiration DateVisits RequestedVisits [id number]/25/202411/25/202511 [facility] Work Phone: Reason for visit Narrative* CV Imaging (Routine) - AuthorizedSpecialtyDiagnoses / ProceduresReferred By ContactReferred To ContactCardiology Diagnoses Angina pectoris Shortness of breath Palpitations Family history of ischemic heart disease Primary hypertension Procedures Transthoracic Echo Complete IL ECHO TTHRC R-T 2D W/WOM-MODE COMPL SPEC&COLR D Aleah Howard MD [address] [place] [address] Phone: tel: fax: Referral IDStatusReasonStart DateExpiration DateVisits RequestedVisits [id number] Perform Procedure [facility] Work Phone: Assessments Diagnosis Preoperative testing [...] call your doctor or the [facility] at documented in this encounter Reason for Referral StatusReasonSpecialtyDiagnoses / ProceduresReferred By ContactReferred To ContactClosedRadiology Diagnoses Omental infarction (HCC) Procedures CT ABDOMEN PELVIS W IV CONTRAST Additional Contrast? Oral Gamaliel Vickers, [address] [facility] [address] [place] [address] SpecialtyDiagnoses / ProceduresReferred By ContactReferred To Contact Ophthalmology Diagnoses Idiopathic intracranial hypertension Procedures CONSULT TO OPHTHALMOLOGY OFFICE/OUTPATIENT [facility] 60-74 MINUTES Eileen Alvarez MD [address] [place] [address] Referral IDStatusReasonStart DateExpiration DateVisits RequestedVisits [id number] PCP Requested Referral [id number] / ProceduresReferred By ContactReferred To ContactMR IMAGING Diagnoses Idiopathic intracranial hypertension Procedures MRV BRAIN WO/W IVCON MRA; HEAD W & WO Eileen Dang MD [address] [place] [address] Mr Imaging Referral IDStatusReasonStart DateExpiration DateVisits RequestedVisits [id number] Review Auto-Generated Referral /[id number] / ProceduresReferred By ContactReferred To ContactMR IMAGING Diagnoses Mass of upper outer quadrant of left breast Procedures MRI BREAST BX WO/W IVCON LEFT BX BREAST W/DEVICE 1ST [place] [address] [place] [address] [facility] [place] [address] Referral IDStatusReasonStart DateExpiration DateVisits RequestedVisits [id number] Review Auto-Generated Referral /[id number] / ProceduresReferred By ContactReferred To Contact Diagnoses Class 1 obesity due to excess calories without serious comorbidity with body mass index (BMI) of 30.0 to 30.9 in adult Procedures ENDOCRINE MEDICAL WEIGHT MANAGEMENT OFFICE/OUTPATIENT [facility] 60 [place] [address] [place] [address] Referral IDStatusReasonStart DateExpiration DateVisits RequestedVisits [id number] PCP Requested Referral /[id number] / ProceduresReferred By ContactReferred To ContactMR IMAGING Diagnoses Pancreas cyst Procedures MRI 3D POST PROCESSING 3D RENDERING W/INTERP&POSTPROC DIFF WORK STATION Leonela Aguirre MD [address] [place] [address] Mr [facility] [place] [address] Referral IDStatusReasonStart DateExpiration DateVisits RequestedVisits [id number] Auto-Generated Referral /[id number] / ProceduresReferred By ContactReferred To ContactMR IMAGING Diagnoses Pancreas cyst Procedures MRI PANC/TANMAY WO/W IVCON MRI ABDOMEN W/O & W/CONTRAST MATERIAL Leonela Aguirre MD [address] [place] [address] Mr [facility] [place] [address] Referral IDStatusReasonStart DateExpiration DateVisits RequestedVisits [id number] Auto-Generated Referral /[id number] / ProceduresReferred By ContactReferred To ContactMR IMAGING Diagnoses Idiopathic intracranial hypertension Procedures MRV BRAIN WO/W IVCON MRA; HEAD W & WO CONTRAST Eileen Alvarez MD [address] [place] [address] Mr [facility] [place] [address] Referral IDStatusReasonStart DateExpiration DateVisits RequestedVisits [id number] Auto-Generated Referral /[id number] / ProceduresReferred By ContactReferred To ContactMR IMAGING Diagnoses Mass of upper outer quadrant of left breast Fibrocystic breast changes of both breasts Mastodynia Inversion of left nipple Bloody discharge from left nipple Nipple discharge Procedures MRI BREAST WO/W IVCON BILATERAL MRI BREAST WITHOUT&WITH CONTRAST W/CAD BILATERAL Fatuma Tyler APRN.REFUSE DRIVER [address] [place] [address] Mr [facility] [place] [address] Referral IDStatusReasonAnnabella DateExpiration DateVisits RequestedVisits [id number] Review Auto-Generated Referral /[id number] / ProceduresReferred By ContactReferred To ContactBR IMAGING Diagnoses Mass of upper outer quadrant of left breast Procedures US BREAST LTD LEFT US BREAST UNI REAL TIME WITH IMAGE LIMITED Fatuma Tyler APRN.REFUSE DRIVER [address] [place] [address] [facility] [address] [place] [address] Referral IDStatusReasonStart DateExpiration DateVisits RequestedVisits [id number] Auto-Generated Referral [id number] / ProceduresReferred By ContactReferred To ContactBR IMAGING Diagnoses Mass of upper outer quadrant of left breast Procedures LINDA DIAG W AV BILATERAL DIGITAL BREAST TOMOSYNTHESIS BILATERAL Fatuma Tyler, DIPPER AND DRIER.REFUSE DRIVER [address] [place] [address] [facility] [address] [place] [address] Referral IDStatusReasonStholland DateExpiration DateVisits RequestedVisits [id number] Auto-Generated Referral Chief Complaint and Reason for [...] and content) DATE CREATED AUTHOR 10/06/2020 [facility] DATE CREATED AUTHOR AUTHOR'S ORGANIZ ATION 01/06/2021 [facility] DATE CREATED AUTHOR AUTHOR'S ORGANIZ ATION 08/16/2022 [facility] DATE CREATED AUTHOR AUTHOR'S ORGANIZ ATION 11/15/2022 [facility] DATE CREATED AUTHOR AUTHOR'S ORGANIZ ATION 08/17/2023 [facility] DATE CREATED AUTHOR AUTHOR'S ORGANIZ ATION 09/04/2023 [facility] DATE CREATED AUTHOR AUTHOR'S ORGANIZ ATION 10/26/2023 [facility] DATE CREATED AUTHOR AUTHOR'S ORGANIZ ATION 03/12/2024 [facility] DATE CREATED AUTHOR AUTHOR'S ORGANIZ ATION 09/16/2024 [facility] DATE CREATED AUTHOR AUTHOR'S ORGANIZ ATION 09/25/2024 [facility] DATE CREATED AUTHOR AUTHOR'S ORGANIZ ATION 09/26/2024 [facility] DATE CREATED AUTHOR AUTHOR'S ORGANIZ ATION 09/30/2024 [facility] DATE CREATED AUTHOR AUTHOR'S ORGANIZ ATION 10/19/2024 [facility] DATE CREATED AUTHOR AUTHOR'S ORGANIZ ATION 12/13/2024 [facility] DATE CREATED AUTHOR AUTHOR'S ORGANIZ ATION 01/29/2025 [facility] DATE CREATED AUTHOR AUTHOR'S ORGANIZ ATION 02/19/2025 [facility] DATE CREATED AUTHOR AUTHOR'S ORGANIZ ATION 03/05/2025 [facility] DATE CREATED AUTHOR AUTHOR'S ORGANIZ ATION 03/17/2025 [facility] DATE CREATED AUTHOR AUTHOR'S ORGANIZ ATION 07/04/2025 [facility] DATE CREATED AUTHOR AUTHOR'S ORGANIZ ATION 07/07/2025 [facility] DATE CREATED AUTHOR AUTHOR'S ORGANIZ ATION 07/25/2025 [facility] Reason for Visit (unrecogniz ed section and content) StatusReasonSpecialtyDiagnoses / ProceduresReferred By ContactReferred To Contact Diagnoses GERD (gastroesophageal reflux disease) GERD/OBESITY Procedures IL ESOPHAGOGASTRODUODENOSCOPY TRANSORAL DIAGNOSTIC EGD ESOPHAGOGASTRODUODENOSCOPY Gamaliel Vickers DO [address] [facility] [address] [place] [phone] [facility] StatusReasonSpecialtyDiagnoses / ProceduresReferred By ContactReferred To ContactClosedRadiology Diagnoses Gastro-esophageal reflux disease with esophagitis, without bleeding Procedures CHG RADIOLOGIC EXAM UPR GI TRC SINGLE CONTRAST STUDY Gamaliel Vickers DO [address] [facility] [address] [place] [phone] [facility] [address] [place] [address] StatusReasonSpecialtyDiagnoses / ProceduresReferred By ContactReferred To Contact Diagnoses Morbid obesity (HCC) GERD (gastroesophageal reflux disease) MORBID OBESITY, GERD Procedures IL LAP GASTRIC BYPASS/TIAN-EN-Y XI LAPAROSCOPIC ROBOTIC GASTRIC BYPASS TIAN-EN-Y, LIVER BIOPSY, EGD- GI UNIT SCHEDULED. Gamaliel Vickers DO [address] [facility] [address] [place] [phone] [facility] ReasonCommentsAbdominal PainDiffuse cramping and bloating. Onset 2 days ago. Pt reports she is 3.5weeks post Gastric bypass. Last BM this AMReasonComments Abdominal Painpossible abscessStatusReasonSpecialtyDiagnoses / Procedures Referred By ContactReferred To Contact Diagnoses Intra-abdominal abscess (HCC) Omental infarction (HCC) Gamaliel Vickers DO [address] [facility] [address] [place] [phone] [facility] StatusReasonSpecialtyDiagnoses / ProceduresReferred By ContactReferred To ContactClosedRadiology Diagnoses Omental infarction (HCC) Procedures CT ABDOMEN PELVIS W IV CONTRAST Additional Contrast? Oral Gamaliel Vickers DO [address] [facility] [address] [place] [phone] ReasonCommentsOrdersReasonCommentsPatient QuestionAppointmentReasonCommentsMouth Soresblood in the back of throatReasonCommentsSchedulingReasonComments AppointmentReasonCommentsHeadacheReasonCommentsRefill RequestSpecialtyDiagnoses / ProceduresReferred By ContactReferred To Contact Diagnoses Gastroesophageal reflux disease, unspecified whether esophagitis present Obesity (BMI 30-39.9) Gastroesophageal reflux disease, unspecified whether esophagitis present [K21.9] Obesity (BMI 30-39.9) [E66.9] Procedures IL EGD TRANSORAL BIOPSY SINGLE/MULTIPLE IL ESOPHAGOGASTRODUODENOSCOPY TRANSORAL DIAGNOSTIC IL EGD BALLOON DILATION ESOPHAGUS <30 MM DIAM EGD BIOPSY Gamaliel Vickers DO [address] [facility] [address] [place] [address] [facility] [address] [place] [address] Referral IDStatusReasonStart DateExpiration DateVisits RequestedVisits [id number] CarePanic attacks , SOB ( Chest tightness )ReasonCommentsPhysicalGastric by pass surgery 3 yrs ago and wants to talk about how to help with weight loss.Rash on right upper thigh.ReasonComments Radiology MRISpecialtyDiagnoses / ProceduresReferred By ContactReferred To ContactMR IMAGING Diagnoses Pancreas cyst Procedures MRI PANC/TANMAY WO/W IVCON MRI ABDOMEN W/O & W/CONTRAST MATERIAL Leonela Aguirre MD [address] [place] [address] Mr Imaging [place] [address] Referral [facility]StatusRe[facility] DateExpiration DateVisits RequestedVisits [id number] Auto-Generated Referral /[id number] DateCommentsACM EDYTA 05/30/2024ED Utilization review per request of payerSpecialtyDiagnoses / ProceduresReferred By ContactReferred To Contact IMAGING Diagnoses Idiopathic intracranial hypertension Procedures MRV BRAIN WO/W IVCON MRA; HEAD W & WO CONTRAST Eileen Alvarez MD [address] [place] [address] Mr [facility] [place] [address] Referral IDStatusReasonStart DateExpiration DateVisits RequestedVisits [id number] Auto-Generated Referral /[id number] CareAnxiety is getting bad On/off chest pain ,Rapid HR, trouble in sleeping, body aches, BP elevated , light headed dizzy, blurry vision, trouble eating or drinking can't stop eatingReason CommentsRadiology MammogramSpecialtyDiagnoses / ProceduresReferred By Contact Referred To ContactBR IMAGING Diagnoses Mass of upper outer quadrant of left breast Procedures LINDA DIAG W AV BILATERAL DIGITAL BREAST TOMOSYNTHESIS BILATERAL Fatuma Tyler APRN.REFUSE DRIVER [address] [place] [address] [facility] [address] [place] [address] Referral IDStatusReasonStart DateExpiration DateVisits RequestedVisits [id number] Auto-Generated Referral [id number] PatientLeft breast lump and pain for over [...] per request of payorReasonOnset DateCommentsPopulation Health Navigation Ygfcuybe40/03/2025[place] WorkbencAtrium Health CabarrusainReasonCommentsLeft breast hypertrophy SpecialtyDiagnoses / ProceduresReferred By ContactReferred To ContactGeneral Surgery Diagnoses Hypertrophy of breast Procedures IL OFFICE/OUTPATIENT NEW HIGH MDM 60 MINUTES Molly Gregorio, CEDRIC-REFUSE DRIVER [address] [place] [address] Phone: tel: fax: [facility] [address] [address] Phone: tel: fax: Referral IDStatusReasonStart DateExpiration DateVisits RequestedVisits [id number] Specialty Services Required /[id number] mamm/US resultsC/o nipple painReason Vifrkxdn1rg pow Lt. lumpectomyPoss. ujrnmuIioruzOmicdhzy5wm pow Lt. lumpectomyPt has a new area [...] specifically ordered. * 1312 (Held - Provider: Yanelis Martínez RN - Reason: Other - [...] 1 dose * 1142 (Given - Provider: [facility]) iopamidol (ISOVUE-370) 76 % injection 75 mL (COMPLETED) 75 mL, Intravenous, IMG ONCE PRN, Other, Starting on Thu01/30/21 at 1137, For 1 dose * 1142 (Given - Provider: [facility]) Medication Order// 0.9 % sodium chloride bolus [...] ordered. * 2004 (Given - Provider: Jacob aMne RN) piperacillin-tazobactam (ZOSYN) 3,375 mg in dextrose [...] or prosecute any alcohol or drug abuse patient.[facility] HospitalIn the event this information is protected by the Federal Confidentiality of Alcohol and Drug Abuse Patient Records regulations: The Federal rules restrict any use of the information to criminally investigate or prosecute any alcohol or drug abuse patient.[facility] HospitalIn the event this information is protected by the Federal Confidentiality of Alcohol and Drug Abuse Patient Records regulations: The Federal rules restrict any use of the information to criminally investigate or prosecute any alcohol or drug abuse patient.[facility] HospitalIn the event this information is protected by the Federal Confidentiality of Alcohol and Drug Abuse Patient Records regulations: The Federal rules restrict any use of the information to criminally investigate or prosecute any alcohol or drug abuse patient.[facility] HospitalIn the event this information is protected by the Federal Confidentiality of Alcohol and Drug Abuse Patient Records regulations: The Federal rules restrict any use of the information to criminally investigate or prosecute any alcohol or drug abuse patient.[facility] HospitalIn the event this information is protected by the Federal Confidentiality of Alcohol and Drug Abuse Patient Records regulations: The Federal rules restrict any use of the information to criminally investigate or prosecute any alcohol or drug abuse patient.[facility] HospitalIn the event this information is protected by the Federal Confidentiality of Alcohol and Drug Abuse Patient Records regulations: The Federal rules restrict any use of the information to criminally investigate or prosecute any alcohol or drug abuse patient.[facility] HospitalIn the event this information is protected by the Federal Confidentiality of Alcohol and Drug Abuse Patient Records regulations: The Federal rules restrict any use of the information to criminally investigate or prosecute any alcohol or drug abuse patient.[facility] HospitalIn the event this information is protected by the Federal Confidentiality of Alcohol and Drug Abuse Patient Records regulations: The Federal rules restrict any use of the information to criminally investigate or prosecute any alcohol or drug abuse patient.[facility] HospitalIn the event this information is protected by the Federal Confidentiality of Alcohol and Drug Abuse Patient Records regulations: The Federal rules restrict any use of the information to criminally investigate or prosecute any alcohol or drug abuse patient.[facility] HospitalIn the event this information is protected by the Federal Confidentiality of Alcohol and Drug Abuse Patient Records regulations: The Federal rules restrict any use of the information to criminally investigate or prosecute any alcohol or drug abuse patient.[facility] HospitalIn the event this information is protected by the Federal Confidentiality of Alcohol and Drug Abuse Patient Records regulations: The Federal rules restrict any use of the information to criminally investigate or prosecute any alcohol or drug abuse patient.[facility] HospitalIn the event this information is protected by the Federal Confidentiality of Alcohol and Drug Abuse Patient Records regulations: The Federal rules restrict any use of the information to criminally investigate or prosecute any alcohol or drug abuse patient.[facility] HospitalIn the event this information is protected by the Federal Confidentiality of Alcohol and Drug Abuse Patient Records regulations: The Federal rules restrict any use of the information to criminally investigate or prosecute any alcohol or drug abuse patient.[facility] HospitalIn the event this information is protected by the Federal Confidentiality of Alcohol and Drug Abuse Patient Records regulations: The Federal rules restrict any use of the information to criminally investigate or prosecute any alcohol or drug abuse patient.[facility] HospitalIn the event this information is protected by the Federal Confidentiality of Alcohol and Drug Abuse Patient Records regulations: The Federal rules restrict any use of the information to criminally investigate or prosecute any alcohol or drug abuse patient.[facility] HospitalIn the event this information is protected by the Federal Confidentiality of Alcohol and Drug Abuse Patient Records regulations: The Federal rules restrict any use of the information to criminally investigate or prosecute any alcohol or drug abuse patient.[facility] HospitalIn the event this information is protected by the Federal Confidentiality of Alcohol and Drug Abuse Patient Records regulations: The Federal rules restrict any use of the information to criminally investigate or prosecute any alcohol or drug abuse patient.[facility] HospitalIn the event this information is protected by the Federal Confidentiality of Alcohol and Drug Abuse Patient Records regulations: The Federal rules restrict any use of the information to criminally investigate or prosecute any alcohol or drug abuse patient.[facility] HospitalIn the event this information is protected by the Federal Confidentiality of Alcohol and Drug Abuse Patient Records regulations: The Federal rules restrict any use of the information to criminally investigate or prosecute any alcohol or drug abuse patient.[facility] HospitalIn the event this information is protected by the Federal Confidentiality of Alcohol and Drug Abuse Patient Records regulations: The Federal rules restrict any use of the information to criminally investigate or prosecute any alcohol or drug abuse patient.[facility] the event this information is protected by the Federal Confidentiality of Alcohol and Drug Abuse Patient Records regulations: The Federal rules restrict any use of the information to criminally investigate or prosecute any alcohol or drug abuse patient.[facility] HospitalIn the event this information is protected by the Federal Confidentiality of Alcohol and Drug Abuse Patient Records regulations: The Federal rules restrict any use of the information to criminally investigate or prosecute any alcohol or drug abuse patient.[facility] HospitalIn the event this information is protected by the Federal Confidentiality of Alcohol and Drug Abuse Patient Records regulations: The Federal rules restrict any use of the information to criminally investigate or prosecute any alcohol or drug abuse patient.[facility] HospitalIn the event this information is protected by the Federal Confidentiality of Alcohol and Drug Abuse Patient Records regulations: The Federal rules restrict any use of the information to criminally investigate or prosecute any alcohol or drug abuse patient.[facility] HospitalIn the event this information is protected by the Federal Confidentiality of Alcohol and Drug Abuse Patient Records regulations: The Federal rules restrict any use of the information to criminally investigate or prosecute any alcohol or drug abuse patient.[facility] HospitalIn the event this information is protected by the Federal Confidentiality of Alcohol and Drug Abuse Patient Records regulations: The Federal rules restrict any use of the information to criminally investigate or prosecute any alcohol or drug abuse patient.[facility] HospitalIn the event this information is protected by the Federal Confidentiality of Alcohol and Drug Abuse Patient Records regulations: The Federal rules restrict any use of the information to criminally investigate or prosecute any alcohol or drug abuse patient.[facility] HospitalIn the event this information is protected by the Federal Confidentiality of Alcohol and Drug Abuse Patient Records regulations: The Federal rules restrict any use of the information to criminally investigate or prosecute any alcohol or drug abuse patient.[facility] HospitalIn the event this information is protected by the Federal Confidentiality of Alcohol and Drug Abuse Patient Records regulations: The Federal rules restrict any use of the information to criminally investigate or prosecute any alcohol or drug abuse patient.[facility] Care Team (unrecognized sect ion and content) Team Status: Active Member Role Status Dates Jennie Durand DO Primary Care Provider Active Team Status: Inactive Member Role Status Dates Aaliyah Francis DO Attending Provider Active Start: April 26, 2025 End: April 26Antony Chavis Care ProviderActiveStart: April 26, 2025 End: April 26, 2025 Team Status: Active Member Role Status Dates Lindy Keen APRN ORAL SURGERY PHYSICIAN-C Primary Care Provider Activ e Start: May 11, 2025 Efrem Victor , MDAttending ProviderActiveStart: May 11, 2025 Team Status: Inactive Member Role Status Dates Jennie Durand DO Primary Care Provider Active S tart: May 16, 2025 End: May 16, 2025Aaliyah Francis DOAttconstantin ProviderActiveStart: May 16, 2025 End: May 16, 2025 Team Status: Active Member Role Status Dates Lindy Keen APRN ORAL SURGERY PHYSICIAN-C Primary Care Provider Activ e Start: April [...] , DOOther ProviderActiveFebrown Niño , ANP-BCOther ProviderActiveAdam Veto Lee , DOOther ProviderActiveShasta Zaragoza , APRNOther ProviderActiveDanielle Smith , ORAL SURGERY PHYSICIAN-COther ProviderActiveLizzeth Malave MD Attending ProviderActive Team Status: Inactive Member Role Status Dates Jennie Durand , Primary Care Provider Active Sangeetha Peña , MDAdmit ProviderActiveKatherine SciarappaOther ProviderActive Krystal Romo , DOOther ProviderActiveStrod Schilling , MDOther ProviderActive Jamie Larsen , DOReferring Provider, Other ProviderActiveFelicia Salinas , ANP-BCOther ProviderActiveAdam Veto Lee , DOOther ProviderActive Shasta Zaragoza , APRNOther ProviderActiveDanielle Smith , ORAL SURGERY PHYSICIAN-COther Provider ActiveNatalee Hull ProviderActive Team Status: Inactive Member Role Status Dates Jennie Durand , Primary Care Provider Active Te Bro ProviderActive Team Status: Inactive Member Role Status Dates Jennie Durand , Primary Care Provider Active Christine Noriega ProviderActive Team Status: Inactive Member Role Status Dates Jennie Durand , DO Primary Care Provider Active Christin Aguillon ProviderActiveTeam MemberRelationshipSpecialtyStart DateEnd Date Jennie Durand DO [address] [place] [phone] [facility]19/22 Team Status: Inactive Member Role Status [...] 2023Team MemberRelationshipSpecialtyStart [place] [address] [place] [address] PCP - [facility] Medicine01/04/24 Nilo Prado MD [address] [place] [phone] TmueicgomDdudpxxlqrmaosns35/4/23Team MemberRelationshipSpecialtyStart [place] [address] [place] [address] [facility] - [facility]24 Nilo Prado MD [address] [address] DyadytqadPjlzxzyofoeukgrh3423Team MemberRelationshipSpecialtyStart [place] [address] [place] [address] PCP - GeneralFamily Medicine01/04/24 Nilo Prado MD [address] [place] [address] MvpmbssrbEgrylxahaprekiwi07/4/23Team MemberRelationshipSpecialtyStart [place] [address] [place] [address] PCP - GeneralFamily Medicine01/04/24 Nilo Prado MD [address] [place] [address] SkppcuafhLtxfcxstexuqpbbi92/4/23Team MemberRelationshipSpecialtyStart [place] [address] [place] [address] PCP - GeneralFamily Medicine01/04/24 Nilo Prado MD [address] [place] [address] HnccdweehUlimnntujxqsvvnh7623Team MemberRelationshipSpecialtyStart [place] [address] [place] [address] PCP - GeneralFamily Medicine05/30/24 Nilo Prado MD [address] [place] [address] NboopvjzpSbosvqjkssduoeon06/4/23Team MemberRelationshipSpecialtyStart [place] [address] [place] [address] PCP - GeneralFamily Medicine05/30/24 Nilo Prado MD [address] [place] [address] KbkmpysrkGbmqepwbhcjbjylc95/4/23Team MemberRelationshipSpecialtyStart [place] [address] [place] [address] PCP - GeneralFamily Medicine05/30/24 Nilo Prado MD [address] [place] [address] IbtkvsbzjVhuixaosonrarkea76/4/23Team MemberRelationshipSpecialtyStart [place] [address] [place] [address] PCP - GeneralFamily Medicine05/30/24 Nilo Prado MD [address] [place] [address] PvpkgxnmeUtxinpulgqgpsggx28/4/23Team MemberRelationshipSpecialtyStart [place] [address] [place] [address] PCP - GeneralFamily Medicine05/30/24 Nilo Prado MD [address] [place] [address] CowurlfhuBiqyasxoktdpupel94/4/23Team MemberRelationshipSpecialtyStart [place] [address] [place] [address] PCP - GeneralFamily Medicine05/30/24 Nilo Prado MD [address] [place] [address] InatddsfvQellgzvvbyopakld89/4/23Team MemberRelationshipSpecialtyStart [place] [address] [place] [address] PCP - GeneralFamily Medicine05/30/24 Nilo Prado MD [address] [place] [address] ShlwgbwhbBqidsnkoafptyblv79/4/23Team MemberRelationshipSpecialtyStart [place] [address] [place] [address] PCP - GeneralFamily Medicine05/30/24 Nilo Prado MD [address] [place] [address] RpnmkkhckLadjpytbzyerpzeb59/4/23Team MemberRelationshipSpecialtyStart [place] [address] [place] [address] PCP - GeneralFamily Medicine05/30/24 Nilo Prado MD [address] [place] [address] VposqfnplFwoxghzimtebsryo22/4/23Team MemberRelationshipSpecialtyStart [place] [address] [place] [address] PCP - GeneralFamily Medicine05/30/24 Nilo Prado MD [address] [place] [address] AmbpbkebvNynwctndcqsdtjno25/4/23Team MemberRelationshipSpecialtyStart [place] [address] [place] [address] PCP - GeneralFamily Medicine05/30/24 Nilo Prado MD [address] [place] [address] EvdciyfjnXsaezyjzsxdocibd88/4/23Team MemberRelationshipSpecialtyStart [place] [address] [place] [address] PCP - GeneralFamily Medicine05/30/24 Nilo Prado MD [address] [place] [address] OnjobxcqoPnxuxttnblmdtgyb40/4/23 [place] [address] [place] [address] [facility] Jpihhksu75/9/24Team MemberRelationshipSpecialtyStart DateEnd Date [place] [address]DO [address] [place], [place] [id number] PCP - GeneralFamily Medicine05/30/24 Nilo Prado MD [address] [place] [address] OlwtmxnlrIxkqvudophikcbog91/4/23 [place] [address] [place] [address] [facility]08/22/24Team MemberRelationshipSpecialtyStart DateEnd Date Kurt Balbuena [facility] [address] [address] 09/21/24Team MemberRelationshipSpecialtyStart DateEnd Date Kurt Balbuena [facility] [address] [address] 09/21/24 Team Status: Active Member Role Status Dates Jennie Durand DO Primary Care Provider Active S tart: July 03, 2024 Julio Peña DOAttending ProviderActiveStart: July 03, 2024 Team MemberRelationshipSpecialtyStart DateEnd Date Kurt Balbuena [facility] [address] [address] 09/21/24Team MemberRelationshipSpecialtyStart DateEnd Date Kurt Balbuena [facility] [address] [address] 09/21/24 Corby Larsen DO [address] [place] [address] Referring PhysicianNeurolog09/27/24 Team Status: Inactive Member Role Status Dates NON STAFF Primary Care Provider Active Start: December 16, 2024 End: December 16hragustín Larsen DOAttending ProviderActiveStart: December 16, 2024 End: December 16, 2024Team MemberRelationshipSpecialtyStart [place] [address] [place], [place] [id number] PCP - GeneralFamily Medicine05/30/24 Nilo Prado MD [address] [address] BtaqwrvunTzdokiqvhgefhdqs11/4/23 Lisha Bianchi APRN.IRENE [address] [place], [place] [phone] Care PartnerFamily Medicine12/16/24Team MemberRelationshipSpecialtyStart DateEnd Date Kurt Balbuena, LEONOR [facility] [address] [address] 09/21/24 Corby Larsen DO [facility] [address] [address] Referring PhysicianNeurolog09/27/24Team MemberRelationshipSpecialtyStart DateEnd Date Unallocated, Shane Conte MD [address] [place] [address] PCP - [facility] Medicine04/13/25 Kurt Balbuena ORAL SURGERY PHYSICIAN [address] [address] 09/21/24 Corby Larsen DO [address] [address] Referring PhysicianNeurolog09/27/24Team MemberRelationshipSpecialtyStart DateEnd Date Unallocated, Shane Conte MD [address] [place] [address] [facility] - [facility] Medicine04/13/25 Kurt Balbuena ORAL SURGERY PHYSICIAN [address] [address] 09/21/24 Corby Larsen DO [address] [address] Referring PhysicianNeurology1 Team Status: Inactive Member Role Status Dates Jennie Durand DO Primary Care Provider Active S tart: May 30, 2025 End: May 30, 2025Fredkaushik Francis DOAttending ProviderActiveStart: May 30, 2025 End: May 30, 2025Team MemberRelationshipSpecialtyStart DateEnd Date Unallocated, Shane Conte MD [address] [place] [address] PCP - GeneralFamily Medicine04/13/25 Kurt Balbuena NP [place] [phone] 09/21/24 Corby Larsen DO [address] [place] [address] Referring PhysicianNeurology1 Team Status: Active Member Role Status Dates Lindy Keen APRN ORAL SURGERY PHYSICIAN-C Primary Care Provider Activ e Start: June 06, 2025 Efrem Victor MDAttconstantin ProviderActiveStart: June 06, 2025 Team Status: Inactive Member Role Status Dates Jennie Durand DO Primary Care Provider Active S tart: June 29, 2025 End: June 29, 2025Alexis Helm MDEmejodi ProviderActiveStart: June 29, 2025 End: June 29, 2025Team MemberRelationshipSpecialtyStart DateEnd Date Unallocated, Luiss ProviderMD [address] [place] [address] [facility] - [facility]04/13/25 Kurt Balbuena NP [address] [address] 09/21/24 Corby Larsen DO [address] [place] [address] Referring PhysicianNeurology1Team MemberRelationshipSpecialtyStart DateEnd Date Unallocated, MD Mathieu Vaughn [facility] [address] PCP - GeneralFamily Medicine04/13/25 Kurt Balbuena NP [address] [address] 09/21/24 Corby Larsen DO [address] [address] Referring PhysicianNeurolog09/27/24 Team Status: Active Member Role/Relationship Status Dates Jennie Durand DO Primary Care Provider Active Team Status: Inactive Member Role/Relationship Status Dates Aaliyah Fracnis DO Attending Provider Active Start: April 26, 2025 End: April 26Antony Chavis Care ProviderActiveStart: April 26, 2025 End: April 26, 2025 Team Status: Inactive Member Role/Relationship Status Dates Jennie Durand DO Primary Care Provider Active S tart: May 16, 2025 End: May 16, 2025Fredric Robb , DOAttending ProviderActiveStart: May 16, 2025 End: May 16, 2025 Team Status: Inactive Member Role/Relationship Status Dates Jennie Durand DO Primary Care Provider Active S tart: May 30, 2025 End: May 30, 2025Frangie Francis , Attending ProviderActiveStart: May 30, 2025 End: May 30, 2025 Team Status: Active Member Role/Relationship Status Dates Lindy Keen APRN ORAL SURGERY PHYSICIAN-C Primary Care Provider Activ e Start: June [...] BE BASED ON THE PRIMARY CLINICAL RECORDS. [facility]. provides no warranty or guarantee of the accuracy or completeness of information in this document.
--- NOTE | 2025-09-09 17:46 | ED.GENADUL1 ---
HPI HPI - General Adult General Chief complaint: Upper Respiratory Infection Stated complaint: SORE THROAT DIARRHEA Time Seen by Provider: 09/09/25 08:24 Source: patient Mode of arrival: ambulance Limitations: no limitations History of Present Illness HPI narrative: Patient is a 34-year-old female presenting to the emergency department URI symptoms x 1 week. Patient states she has had a mild cough, dry nose, and sore throat over the last week. She denies chest pain or shortness of breath. No fevers or chills. No abdominal pain, nausea, vomiting. She denies any significant chronic medical conditions, no cardiac or pulmonary conditions. No rashes. Still tolerating p.o. Related Data Home Medications ?Medication ?Instructions ?Recorded ?Confirmed duloxetine 60 mg capsule,delayed 60 mg PO BID 06/10/23 09/09/25 release trazodone 100 mg tablet 200 mg PO .qhs 01/23/25 09/09/25 nifedipine 30 mg tablet,extended 30 mg PO BEDTIME 06/02/25 09/09/25 release acetazolamide 125 mg tablet 125 mg PO BID 09/04/25 09/09/25 bisoprolol fumarate 5 mg tablet 5 mg PO .qd 09/04/25 09/09/25 brexpiprazole 1 mg tablet (Rexulti) 1 mg PO .qd 09/04/25 09/09/25 cetirizine 10 mg tablet 10 mg PO .qd 09/04/25 09/09/25 lamotrigine 150 mg tablet 150 mg PO .qd 09/04/25 09/09/25 nebivolol 5 mg tablet 5 mg PO .qhs 09/09/25 09/09/25 Allergies Allergy/AdvReac Type Severity Reaction Status Date / Time buspirone (From BuSpar) Allergy Intermediate tachycardia Verified 09/09/25 09:06 aripiprazole (From Abilify) Allergy Unknown Verified 09/09/25 09:06 nebivolol Allergy Rash Verified 09/09/25 09:06 COCONUT Allergy Mild Hives Uncoded 09/09/25 09:06 Opioid HPI Opioid Management Most Recent Opioid Data: Last Pain Scale 4 Today, 09:06 Ur Phencyclidine Scrn, (NEGATIVE) Negative 07/22/24, 13:51 Review of Systems ROS Status of ROS 10 or more systems reviewed and unremarkable except as noted in history and below PFSH PFSH Social History Smoking status: Current every day smoker Little interest or pleasure in doing things: not at all Feeling down, depressed, or hopeless: not at all Exam Narrative Exam Narrative: CONSTITUTIONAL: Well-appearing, answering questions and following commands appropriately SKIN: Was warm and dry. EYES: Sclerae white. EARS, NOSE, THROAT: Moist oral mucosa. Mild pharyngeal edema. No peritonsillar abscess. No trismus. Uvula midline. Speaking with normal voice. RESPIRATORY: Clear to auscultation bilaterally, no wheezes, crackles, or stridor, no use of accessory muscles CARDIOVASCULAR: Normal rate and regular rhythm. There is no S3, S4, murmur, rub. GASTROINTESTINAL: Abdomen is nondistended. MUSCULOSKELETAL: No peripheral edema. NEUROLOGIC: Patient is awake and alert. Facies were symmetrical. Constitutional Vital Signs, click to edit/add: Last Vital Signs Temp 98.5 F 09/09/25 09:06 Pulse 63 09/09/25 09:06 Resp 16 09/09/25 09:06 BP 165/92 H 09/09/25 09:06 Pulse Ox 99 09/09/25 09:06 O2 Del Method Room Air 09/09/25 09:06 Course Vital Signs Vital signs: Vital Signs Temperature 98.5 F 09/09/25 09:06 Pulse Rate 63 09/09/25 09:06 Respiratory Rate 16 09/09/25 09:06 Blood Pressure 165/92 H 09/09/25 09:06 Pulse Oximetry 99 09/09/25 09:06 Oxygen Delivery Method Room Air 09/09/25 09:06 Temperature 98.5 F 09/09/25 09:06 Pulse Rate 63 09/09/25 09:06 Respiratory Rate 16 09/09/25 09:06 Blood Pressure 165/92 H 09/09/25 09:06 Pulse Oximetry 99 09/09/25 09:06 Oxygen Delivery Method Room Air 09/09/25 09:06 Medical Decision Making [facility] Narrative Medical decision making narrative: Patient is a 34-year-old female presenting to the emergency room with 1 day history of URI symptoms. Vital signs on arrival are within normal limits. Afebrile and hemodynamically stable. Saturating 99% on room air in no respiratory distress. Differential diagnose includes viral pharyngitis, viral URI. I did consider pneumonia, however the patient has clear/equal breath sounds bilaterally, is not hypoxic, and overall looks non-toxic and well-hydrated. Viral swabs are negative for influenza and COVID. I do believe the patient is stable for discharge. Patient's presentation is most likely consistent with viral pharyngitis. They were instructed to follow up with her PCP as needed. Return precautions were given including any new or worsening symptoms. They were given a dose of dexamethasone in the ED. Patient understands and agrees to the plan. FINAL IMPRESSION: #Acute viral pharyngitis DISPOSITION: Discharged home CONDITION: Good Lab Data Lab results reviewed: Yes I reviewed the patient's lab results Labs: Lab Results 09/09/25 Range/Units 08:59 Influenza Type A Ag Negative Influenza Type B Ag Negative SARS-CoV-2 Ag (CV2AG) Negative (NEGATIVE) Discharge Plan Discharge Chief Complaint: Upper Respiratory Infection Clinical Impression: Acute viral pharyngitis Patient Disposition: Home, Self-Care Time of Disposition Decision: 09:59 Condition: Good Mode of Transportation: Private Vehicle Prescriptions / Home Meds: No Action duloxetine 60 mg capsule,delayed release(DR/EC) 60 mg PO BID trazodone 100 mg tablet 200 mg PO .qhs lamotrigine 150 mg tablet 150 mg PO .qd cetirizine 10 mg tablet 10 mg PO .qd acetazolamide 125 mg tablet 125 mg PO BID bisoprolol fumarate 5 mg tablet 5 mg PO .qd Rexulti 1 mg tablet 1 mg PO .qd nifedipine 30 mg tablet extended release 30 mg PO BEDTIME nebivolol 5 mg tablet 5 mg PO .qhs Print Language: Albanian Instructions: Pharyngitis (ED) Referrals: KAYLEE AMES [Primary Care Provider, Unknown] - 1 week Discharge Date/Time: 09/09/25 10:43
== END 2025-09-09 10:43 | disposition home or self-care (01) ==
LOC: ER 10:04
PROVIDERS: Emergency Provider Student in an Organized Health Care Education/Training Program
DX: J02.8 Acute pharyngitis due to other specified organisms (principal); R05.9 Cough, unspecified
CPT/HCPCS: 87804; 87811; 99283; J8540